=== PATIENT | male | born 1965 | race Caucasian/White ===

== ENCOUNTER → 2018-06-15 16:13 | Outpatient (REF) | payer SELFPAY ==
[2018-06-17 09:58] LABS: HIV-1/2 Ag & Ab Screen Negative (NEGAT)
[2018-06-17 10:42] LABS: Hepatitis C Ab w Rflx HCV PCR Negative (NEGAT)
[2018-06-17 15:00] LABS: Chlamydia Result Negative; GC Result Negative; Specimen Description URINE
== END ==
LOC: NCHCN 16:13
PROVIDERS: PCP Nurse Practitioner Family; Visit Provider Nurse Practitioner Family
DX: Z11.3 Encounter for screening for infections with a predominantly sexual mode of transmission (principal); Z11.4 Encounter for screening for human immunodeficiency virus [HIV]; Z11.59 Encounter for screening for other viral diseases
CPT/HCPCS: 86803; 87389; 87491; 87591

== ENCOUNTER → 2018-06-22 07:53 | Outpatient (CLI) | payer SELFPAY ==
[2018-06-22 09:41] LABS: HCT 42.6 % (40.0-50.0); HGB 14.9 g/dL (13.5-17.5); Mean Corpuscular Hemoglobin 30.8 pg (27.0-33.0); Mean Platelet Volume 12.4 fL (8.0-11.0); Platelet Count 177 x1000/uL (130-400); RBC 4.84 m/cumm (4.50-6.00); RBC Distribution Width 13.3 % (11.8-14.1); White Blood Cell Count 6.46 k/cumm (4.4-10.8)
[2018-06-22 10:06] LABS: ALT 21 U/L (12-78); AST 16 U/L (15-37); Alkaline Phosphatase 64 U/L (46-116); Anion Gap 10.7 mmol/L (3-11); BUN 16 mg/dL (7-18); Bilirubin, Total 0.8 mg/dL (0.2-1.0); CO2 23.3 mmol/L (21.0-32.0); CREATININE 1.28 mg/dL (0.70-1.30); Calcium 8.6 mg/dL (8.5-10.1); Chloride 104 mmol/L (98-107); Cholesterol 201 mg/dL (50-200); Estimated GFR 59.25 (mL/min/1.73m2); Glucose 100 mg/dL (70-100); HDL Cholesterol 55 mg/dL (40-60); LDL CHOLESTEROL 125 mg/dL (<100); Potassium 4.1 mmol/L (3.5-5.1); Sodium 138 mmol/L (136-145); TSH (W/Ref FT4) 2.59 uIU/mL (0.358-3.74); Total Protein 7.2 g/dL (6.4-8.2); Triglyceride 91 mg/dL (30-150)
[2018-06-23 11:34] LABS: HIV-1/2 Ag & Ab Screen Negative (NEGAT)
[2018-06-25 09:52] LABS: Hepatitis C Ab w Rflx HCV PCR Negative (NEGAT)
== END ==
PROVIDERS: PCP Nurse Practitioner Family; Visit Provider Nurse Practitioner Family
DX: Z13.29 Encounter for screening for other suspected endocrine disorder (principal); Z11.3 Encounter for screening for infections with a predominantly sexual mode of transmission; Z11.4 Encounter for screening for human immunodeficiency virus [HIV]; Z13.0 Encounter for screening for diseases of the blood and blood-forming organs and certain disorders involving the immune mechanism; Z13.228 Encounter for screening for other metabolic disorders; Z11.59 Encounter for screening for other viral diseases; Z13.220 Encounter for screening for lipoid disorders; Z00.00 Encounter for general adult medical examination without abnormal findings
CPT/HCPCS: 36415; 80053; 80061; 83721; 85027; 86803; 87389; 84443

== ENCOUNTER → 2018-06-24 14:46 | Outpatient (CLI) | payer SELFPAY ==
[2018-06-28 13:56] LABS: Chlamydia Result Negative; GC Result Negative; Specimen Description URINE
== END ==
PROVIDERS: PCP Nurse Practitioner Family; Visit Provider Nurse Practitioner Family
DX: Z11.3 Encounter for screening for infections with a predominantly sexual mode of transmission (principal)
CPT/HCPCS: 87491; 87591

== ENCOUNTER 2018-10-28 16:14 | Outpatient (REF) | payer SELFPAY ==
[2018-10-31 14:15] LABS: Testosterone, Free 6.48 ng/dL (4.06-15.6); Testosterone, Total 341 ng/dL (240-950)
[2018-11-01 09:09] LABS: PSA, Screening 1.6 ng/ml (0-3.5)
== END 2018-10-28 16:34 ==
LOC: NCHCN 16:14
PROVIDERS: PCP Nurse Practitioner Family; Visit Provider Nurse Practitioner Family
DX: R53.83 Other fatigue (principal); N52.9 Male erectile dysfunction, unspecified; Z12.5 Encounter for screening for malignant neoplasm of prostate
CPT/HCPCS: 84153; 84402; 84403

== ENCOUNTER 2018-11-23 05:58 | Emergency (ER) | payer SELFPAY ==
[2018-11-23 06:01] VITALS: BP 144/103; PULSE 90; RESP 22; TEMP 36.5; O2SAT 97
--- NOTE | 2018-11-23 06:37 | ED.GENADUL_ITS ---
Discharge Plan Disposition Patient Disposition: HOME Condition: Stable Discharge Details Chief Complaint: Cellulitis Clinical Impression: Cellulitis of chin Primary Care Provider: Rayna Pino ED Provider: Celina Tyler Home Meds and New Rx's Prescriptions: New sulfamethoxazole-trimethoprim [Bactrim DS] 800-160 mg tablet 2 tab PO BID 7 Days Qty: 28 RF: 0 Continued Probiotic 3 billion cell Capsule 1 cap PO DAILY RF: 0 Discharge Instructions Instructions: Cellulitis (ED) Additional Instructions: Take the antibiotics finished. Alternate Tylenol and Motrin as needed and directed for pain. Apply warm compresses to the affected area several times daily for 20 minutes at a time. On exam today you appear to have a cellulitis which is an infection of the skin but you do not appear to have an abscess. If your symptoms do not improve or worsen, you may be developing an abscess, or you may need different antibiotics. Call your primary care doctor today to schedule follow-up appointment for reevaluation this week. Return to the emergency department any time with any worsening or new concerning symptoms. Discharge Data Discharge Date/Time-TO BE ENTERED AT DEPARTURE: 11/23/18 07:25 Discharge Physician: Celina Tyler Medical Decision Making 53yo M with a chin cellulitis after developing an ingrown hair yesterday which she attempted to pop. Vitals within normal limits and patient appears nontoxic. His airway is intact and is speaking in full sentence he is afebrile. There are 2 erosions where patient attempted to squeeze the area. It appears consistent with a cellulitis. Bedside ultrasound was done to assess for abscess and there was no obvious localized collection seen. Area appears more indurated rather than fluctuant. No submandibular swelling or lymphadenopathy. Patient admits to a history of C. difficile a few years ago due to antibiotics for a leg cellulitis. Due to risk of C. difficile colitis with any antibiotic, there may be a stronger risk with clindamycin or doxycycline, therefore will treat with Bactrim. Will give 2 tabs here as well as prescription for home. It was discussed with patient that his symptoms appear consistent with a cellulitis, but may change at any time. If his symptoms become worse, he is instructed to return here immediately for consideration for different antibiotics or possible evaluation of abscess. HPI General Mode of arrival: ambulatory . Date/Time Provider Initiated Documentation: 11/23/18 06:13 . Limitations to Documentation: no limitations . Information obtained by: patient . HPI Narrative: Patient is a 53-year-old male who presents to the ED with a complaint of painful red and swollen chin since yesterday. Patient states he attempted to pop the area with his bare hands and the area has become more swollen red and painful. He does also admit to one episode of diarrhea. Patient states he has a history of C. difficile colitis a couple years ago and states the diarrhea was watery but denies any blood. He a lso denies any fever, nausea, vomiting or abdominal pain. He denies any recent antibiotics. Related Data Home Medications Medication Instructions Recorded Confirmed Probiotic 1 cap PO DAILY 11/23/18 11/23/18 sulfamethoxazole-trimethoprim 2 tab PO BID 7 Days #28 tab 11/23/18 [Bactrim DS] Previous Rx's Medication Instructions Recorded sulfamethoxazole-trimethoprim 2 tab PO BID 7 Days #28 tab 11/23/18 [Bactrim DS] Allergies Allergy/AdvReac Type Severity Reaction Status Date / Time No Known Allergies Allergy Unverified 11/23/18 06:09 General Stated Complaint: Cellulitis LU: 3 Review of Systems Review of Systems All systems reviewed & are unremarkable except as noted in HPI and below Constitutional Reports as per HPI, Denies chills and Denies fever(s) Eyes Denies blurry vision ENT Denies dizziness, Denies sore throat and Denies throat swelling Cardiovascular Denies chest pain and Denies dyspnea Respiratory Denies dyspnea Gastrointestinal Denies abdominal pain, Denies diarrhea and Denies vomiting Genitourinary Denies hematuria and Denies dysuria Musculoskeletal Denies back pain and Denies numbness Integumentary/Breasts Reports lesions and Denies rash Neurologic Denies dizziness and Denies numbness Allergic/Immunologic Denies throat swelling [facility] Medical History C. difficile colitis (Acute) Social History Smoking/Tobacco Use Status: Never alcohol intake: current alcohol intake frequency: a few times a week substance use type: marijuana Exam Const General: cooperative, healthy appearing and no acute distress [facility] Head images: 1. An approximately 5 x 5 cm area of erythematous induration and tenderness. T wo 0.5 x 1cm erosions within area of induration. No active drainage or bleeding. No area of fluctuance. Ears: hearing grossly normal bilaterally and TM's normal bilaterally General nose exam: external nose normal Mouth: oral mucosae normal Teeth and gingiva: dentition normal Throat: posterior oropharynx normal Eyes General: appearance normal, both eyes and all related structures Neck Neck: normal visual inspection, no lymphadenopathy, no anterior neck swelling and No submandibular swelling Resp Effort & Inspection: normal respiratory effort and able to speak in complete sentences Cardio Rate: regular rate Neuro General: alert, awake and oriented x3 Motor: muscle tone normal throughout Extrem General: normal to inspection and full ROM Psych Appearance: grossly normal Affect: normal affect Course Vital Signs Temperature 97.7 F 11/23/18 06:01 Pulse 90 11/23/18 06:01 Respiratory Rate 22 11/23/18 06:01 Blood Pressure 144/103 H 11/23/18 06:01 Pulse Oximetry 97 11/23/18 06:01 Temperature 97.7 F 11/23/18 06:01 Temperature Source Skin 11/23/18 06:01 Pulse 90 11/23/18 06:01 Respiratory Rate 22 11/23/18 06:01 Respiratory Effort Non-Labored 11/23/18 06:07 Blood Pressure 144/103 H 11/23/18 06:01 Blood Pressure Position Sitting 11/23/18 06:01 Pulse Oximetry 97 11/23/18 06:01 Oxygen Delivery Method Room Air 11/23/18 06:01 Oxygen Flow Rate 0 11/23/18 06:01 Pain Level 9 11/23/18 06:01
[2018-11-23] MEDS: Sulfameth/Trimeth DS TAB 2 TAB PO (06:48)
[2018-11-23 06:57] VITALS: BP 164/91; PULSE 74; RESP 18; O2SAT 99
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
== END 2018-11-23 07:25 | disposition home or self-care (01) ==
LOC: ER 07:11
PROVIDERS: Emergency Provider Physician Assistant; PCP Nurse Practitioner Family
DX: L03.211 Cellulitis of face (principal)
CPT/HCPCS: 99283

== ENCOUNTER 2018-11-26 03:35 | Emergency (ER) | payer SELFPAY ==
[2018-11-26 03:39] VITALS: BP 178/86; PULSE 72; RESP 16; TEMP 37.1; O2SAT 99
--- NOTE | 2018-11-26 03:49 | W.ED.GENAD ---
Discharge Plan Disposition Patient Disposition: HOME Condition: Stable Discharge Details Chief Complaint: Recheck Clinical Impression: Cellulitis of chin Primary Care Provider: Rayna Pino ED Provider: Provider,Temporary Home Meds and New Rx's Prescriptions: New prednisone 20 mg tablet 60 mg PO DAILY 4 Days Qty: 12 RF: 0 amoxicillin-pot clavulanate [Augmentin] 875-125 mg tablet 1 tab PO BID Qty: 14 RF: 0 Continued Probiotic 3 billion cell Capsule 1 cap PO DAILY RF: 0 sulfamethoxazole-trimethoprim [Bactrim DS] 800-160 mg tablet 2 tab PO BID 7 Days Qty: 28 RF: 0 Discharge Instructions Instructions: Cellulitis (ED) Additional Instructions: follow up with your primary care provider in a week if not better and here sooner if you feel the infection is worsening, you have difficulty breathing or swallowing liquids Medical Decision Making 53 yo male comes in for recheck of chin rash. Was placed on bactrim on 11/23 as he had redness of the chin and likley folliciulitis. Continues to have this but now also has left lower lip swelling. Denies pain of the lip, no redness or warmth to touch of the lip. HAs no areas of flucthacen or visible drainable abscess on exam. REdness does not extend beyond the chin and has no submandibular swelling, has no stridor or drooling and has full rom of the mouth and normal posterior pharynx. I feel the swelling is likely from the infection and not clear if it is actually worsening or starting to heal. Given bactrim doesn't cover strep well will add augmentin and also add prednisone to help with the swelling. HE does have hx of c diff but feel he requires coverage for strep. He will be d/c'd and return if worsening Differential Diagnosis cellulitis, abscess HPI General Mode of arrival: ambulatory. Date/Time Provider Initiated Documentation: 11/26/18 03:41. Limitations to Documentation: no limitations. Information obtained by: patient. History of Present Illness 53 year old M presents to the emergency department with the chief complaint of left lower lip swelling, described as mild, Quality is described as aching, and is localized to the face. Patient started experiencing this day(s) (1) and it has been constant. No relieving factors improve symptom(s), No exacerbating factors reported . Patient notes no other symptoms.. Related Data Home Medications Medication Instructions Recorded Confirmed Probiotic 1 cap PO DAILY 11/23/18 11/26/18 sulfamethoxazole-trimethoprim 2 tab PO BID 7 Days #28 tab 11/23/18 11/26/18 [Bactrim DS] amoxicillin-pot clavulanate 1 tab PO BID #14 tab 11/26/18 [Augmentin] prednisone 60 mg PO DAILY 4 Days #12 tab 11/26/18 Previous Rx's Medication Instructions Recorded sulfamethoxazole-trimethoprim 2 tab PO BID 7 Days #28 tab 11/23/18 [Bactrim DS] amoxicillin-pot clavulanate 1 tab PO BID #14 tab 11/26/18 [Augmentin] prednisone 60 mg PO DAILY 4 Days #12 tab 11/26/18 Allergies Allergy/AdvReac Type Severity Reaction Status Date / Time No Known Allergies Allergy Unverified 11/26/18 03:46 General Stated Complaint: Recheck LU: 4 Review of Systems Review of Systems All systems reviewed & are unremarkable except as noted in HPI and below Constitutional Denies chills, Denies fever(s) and Denies weakness ENT Denies change in voice Cardiovascular Denies chest pain and Denies dyspnea Respiratory Denies dyspnea Gastrointestinal Denies abdominal pain, Denies nausea and Denies vomiting Genitourinary Denies dysuria Musculoskeletal Denies joint swelling Neurologic Denies weakness Endocrine Denies heat intolerance [facility] Medical History C. difficile colitis (Acute) Social History Smoking/Tobacco Use Status: Never alcohol intake: current alcohol intake frequency: a few times a week substance use type: marijuana Exam Const General: no acute distress Orientation: alert [facility] Head: normocephalic Ears: external ears normal General nose exam: external nose normal Mouth: moist mucous membranes Eyes General: appearance normal, both eyes and all related structures Neck Neck: normal visual inspection Resp Effort & Inspection: normal respiratory effort and able to speak in complete sentences Cardio Rate: regular rate Skin General skin exam: elasticity normal Rashes: rashes noted and other (erythema of the chin, left lower lip swelling, no drainage or fluctuance) Neuro General: alert and oriented x3 Extrem General: normal to inspection Psych Mental Status: mental status grossly normal Course Vital Signs Temperature 37.1 C 11/26/18 03:39 Pulse 72 11/26/18 03:39 Respiratory Rate 16 11/26/18 03:39 Blood Pressure 178/86 H 11/26/18 03:39 Pulse Oximetry 99 11/26/18 03:39 Temperature 37.1 C 11/26/18 03:39 Temperature Source Temporal Artery Scan 11/26/18 03:39 Pulse 72 11/26/18 03:39 Respiratory Rate 16 11/26/18 03:39 Respiratory Effort 11/26/18 03:39 Blood Pressure 178/86 H 11/26/18 03:39 Pulse Oximetry 99 11/26/18 03:39 Oxygen Delivery Method Room Air 11/26/18 03:39 Oxygen Flow Rate 0 11/26/18 03:39 Pain Level 10 11/26/18 03:39
--- NOTE | 2018-11-26 03:52 | ED.GENADUL_ITS ---
Discharge Plan Disposition Patient Disposition: HOME Condition: Stable Discharge Details Chief Complaint: Recheck Clinical Impression: Cellulitis of chin Primary Care Provider: Rayna Pino ED Provider: Provider,Temporary Home Meds and New Rx's Prescriptions: New prednisone 20 mg tablet 60 mg PO DAILY 4 Days Qty: 12 RF: 0 amoxicillin-pot clavulanate [Augmentin] 875-125 mg tablet 1 tab PO BID Qty: 14 RF: 0 Continued Probiotic 3 billion cell Capsule 1 cap PO DAILY RF: 0 sulfamethoxazole-trimethoprim [Bactrim DS] 800-160 mg tablet 2 tab PO BID 7 Days Qty: 28 RF: 0 Discharge Instructions Instructions: Cellulitis (ED) Additional Instructions: follow up with your primary care provider in a week if not better and here sooner if you feel the infection is worsening, you have difficulty breathing or swallowing liquids Medical Decision Making 53 yo male comes in for recheck of chin rash. Was placed on bactrim on 11/23 as he had redness of the chin and likley folliciulitis. Continues to have this but now also has left lower lip swelling. Denies pain of the lip, no redness or warmth to touch of the lip. HAs no areas of flucthacen or visible drainable abscess on exam. REdness does not extend beyond the chin and has no submandibular swelling, has no stridor or drooling and has full rom of the mouth and normal posterior pharynx. I feel the swelling is likely from the infection and not clear if it is actually worsening or starting to heal. Given bactrim doesn't cover strep well will add augmentin and also add prednisone to help with the swelling. HE does have hx of c diff but feel he requires coverage for strep. He will be d/c'd and return if worsening Differential Diagnosis cellulitis, abscess HPI General Mode of arrival: ambulatory . Date/Time Provider Initiated Documentation: 11/26/18 03:41 . Limitations to Documentation: no limitations . Information obtained by: patient . History of Present Illness 53 year old M presents to the emergency department with the chief complaint of left lower lip swelling, described as mild, Quality is described as aching, and is localized to the face. Patient started experiencing this day(s) (1) and it has been constant. No relieving factors improve symptom(s), No exacerbating factors reported . Patient notes no other symptoms.. Related Data Home Medications Medication Instructions Recorded Confirmed Probiotic 1 cap PO DAILY 11/23/18 11/26/18 sulfamethoxazole-trimethoprim 2 tab PO BID 7 Days #28 tab 11/23/18 11/26/18 [Bactrim DS] amoxicillin-pot clavulanate 1 tab PO BID #14 tab 11/26/18 [Augmentin] prednisone 60 mg PO DAILY 4 Days #12 tab 11/26/18 Previous Rx's Medication Instructions Recorded sulfamethoxazole-trimethoprim 2 tab PO BID 7 Days #28 tab 11/23/18 [Bactrim DS] amoxicillin-pot clavulanate 1 tab PO BID #14 tab 11/26/18 [Augmentin] prednisone 60 mg PO DAILY 4 Days #12 tab 11/26/18 Allergies Allergy/AdvReac Type Severity Reaction Status Date / Time No Known Allergies Allergy Unverified 11/26/18 03:46 General Stated Complaint: Recheck LU: 4 Review of Systems Review of Systems All systems reviewed & are unremarkable except as noted in HPI and below Constitutional Denies chills, Denies fever(s) and Denies weakness ENT Denies change in voice Cardiovascular Denies chest pain and Denies dyspnea Respiratory Denies dyspnea Gastrointestinal Denies abdominal pain, Denies nausea and Denies vomiting Genitourinary Denies dysuria Musculoskeletal Denies joint swelling Neurologic Denies weakness Endocrine Denies heat intolerance [facility] Medical History C. difficile colitis (Acute) Social History Smoking/Tobacco Use Status: Never alcohol intake: current alcohol intake frequency: a few times a week substance use type: marijuana Exam Const General: no acute distress Orientation: alert [facility] Head: normocephalic Ears: external ears normal General nose exam: external nose normal Mouth: moist mucous membranes Eyes General: appearance normal, both eyes and all related structures Neck Neck: normal visual inspection Resp Effort & Inspection: normal respiratory effort and able to speak in complete sentences Cardio Rate: regular rate Skin General skin exam: elasticity normal Rashes: rashes noted and other (erythema of the chin, left lower lip swelling, no drainage or fluctuance) Neuro General: alert and oriented x3 Extrem General: normal to inspection Psych Mental Status: mental status grossly normal Course Vital Signs Temperature 37.1 C 11/26/18 03:39 Pulse 72 11/26/18 03:39 Respiratory Rate 16 11/26/18 03:39 Blood Pressure 178/86 H 11/26/18 03:39 Pulse Oximetry 99 11/26/18 03:39 Temperature 37.1 C 11/26/18 03:39 Temperature Source Temporal Artery Scan 11/26/18 03:39 Pulse 72 11/26/18 03:39 Respiratory Rate 16 11/26/18 03:39 Respiratory Effort 11/26/18 03:39 Blood Pressure 178/86 H 11/26/18 03:39 Pulse Oximetry 99 11/26/18 03:39 Oxygen Delivery Method Room Air 11/26/18 03:39 Oxygen Flow Rate 0 11/26/18 03:39 Pain Level 10 11/26/18 03:39
[2018-11-26] MEDS: Amoxicillin 875/Clav. 125 TAB PO (03:54)
[2018-11-26] MEDS: predniSONE 20 MG TAB 60 MG PO (03:54)
--- NOTE | 2018-11-26 09:11 | PDOC.ERCMPRO ---
Care Management Progress Note 11/26-Bruce needs assistance with paying for his new prescriptions for his chin cellulitis. Dr. Smyth prescribed amoxicillin and prednisone. This CM had assisted Bruce with paying for a bactrim script at [facility] a couple days ago. This CM called [facility] this am and spoke with Nallely. Nallely states that Bruce was seen in their office yesterday at 1030 but there was no change. Explained that Dr. Smyth has prescribed new meds as Bruce's lip had some swelling (please see provider note) and this CM was wondering if [employer] flex funds would cover the cost of the scripts. Nallely stated she would discuss with triage and call back. Currently [facility] does not have a Chronic Care Aid. Waiting for call back to continue to assist with medications.
--- NOTE | 2018-11-26 09:15 | CMPROGNOTE_ITS ---
Care Management Progress Note 11/26-Bruce needs assistance with paying for his new prescriptions for his chin cellulitis. Dr. Smyth prescribed amoxicillin and prednisone. This CM had assisted Bruce with paying for a bactrim script at [facility] a couple days ago. This CM called [facility] this am and spoke with Nallely. Nallely stat es that Bruce was seen in their office yesterday at 1030 but there was no change. Explained that Dr. Smyth has prescribed new meds as Bruce's lip had some swelling (please see provider note) and this CM was wondering if [facility] flex funds would cover the cost of the scripts. Nallely stated she would discuss with triage and call back. Currently [facility] does not have a Chronic Periodontal Assistant. Waiting for call back to continue to assist with medications.
== END 2018-11-26 04:28 | disposition home or self-care (01) ==
PROVIDERS: Emergency Provider Emergency Medicine; PCP Nurse Practitioner Family
DX: L03.211 Cellulitis of face (principal)
CPT/HCPCS: 99283; J7512

== ENCOUNTER 2020-07-05 08:04 | Outpatient (REF) | payer BC, SELFPAY ==
[2020-07-05 16:52] LABS: Anion Gap 6.5 mmol/L (3-11); BUN 15 mg/dL (7-18); CO2 25.5 mmol/L (21.0-32.0); CREATININE 1.25 mg/dL (0.70-1.30); Calcium 8.9 mg/dL (8.5-10.1); Calculated LDL 142 mg/dL (<100); Chloride 108 mmol/L (98-107); Cholesterol 220 mg/dL (<200); Glucose 94 mg/dL (74-106); HDL Cholesterol 54 mg/dL (40-60); Potassium 4.5 mmol/L (3.5-5.1); Sodium 140 mmol/L (136-145); Triglyceride 124 mg/dL (<150)
== END 2020-07-05 08:24 ==
LOC: NCHCN 08:04
PROVIDERS: PCP Nurse Practitioner Family; Visit Provider Nurse Practitioner Family
DX: Z00.00 Encounter for general adult medical examination without abnormal findings (principal); Z13.228 Encounter for screening for other metabolic disorders; Z13.220 Encounter for screening for lipoid disorders
CPT/HCPCS: 80048; 80061

== ENCOUNTER 2020-10-26 20:10 | Emergency (ER) | payer BC, SELFPAY ==
[2020-10-26] VITALS (12 sets, daily range): BP systolic 70–88; BP diastolic 36–71; PULSE 58–64; RESP 17–40; TEMP 33.7–36; O2SAT 85–100
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
[2020-10-26] MEDS: Normal Saline 1,000 ML 1000 ML IV (20:20)
[2020-10-26] MEDS: Lactated Ringers 1,000 ML 1000 ML IV (20:20)
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
[2020-10-26 20:41] LABS: Abs Immature Grans 0.01 10^3/uL (0.0-0.06); Absolute Basophil Count 0.01 10^3/uL (0.0-0.2); Absolute Eosinophil Count 0.04 10^3/uL (0.0-0.7); Absolute Lymphocyte Count 0.91 10^3/uL (1.2-3.4); Absolute Monocyte Count 0.31 10^3/uL (0.1-0.8); Absolute Neutrophil Count 4.12 10^3/uL (1.2-6.7); Basophils % 0.2; Eosinophils % 0.7; HCT 26.8 % (40.0-50.0); HGB 9.2 g/dL (13.5-17.5); Immature Grans % 0.2; Lymphocytes % 16.9; MCH 31.5 pg (27.0-33.0); MCHC 34.3 % (32.0-36.0); MCV 91.8 fL (80-95); MPV 10.7 fL (8.0-11.0); Monocytes % 5.7; Neutrophils % 76.3; Nucleated RBC 0 %; Platelet Count 141 10^3/uL (130-400); RBC 2.92 10^6/uL (4.36-5.78); RDW 12.2 % (11.8-14.1); RDW-SD 41.1 fL
[2020-10-26 20:52] LABS: INR 1.3 (0.9-1.1); PTT Activated 24.5 sec (21.0-27.5); Prothrombin Time 12.7 sec (9.3-11.0)
[2020-10-26 20:54] LABS: ALT 16 U/L (16-63); AST 18 U/L (15-37); Alkaline Phosphatase 32 U/L (46-116); BUN 11 mg/dL (7-18); Bilirubin, Total 0.2 mg/dL (0.2-1.0); CREATININE 1.09 mg/dL (0.70-1.30); Chloride 117 mmol/L (98-107); ETHANOL BLOOD 163.2 mg/dL (<3); Glucose 79 mg/dL (74-106); Magnesium 1.1 mg/dL (1.8-2.4); Sodium 145 mmol/L (136-145); Total Protein 3.7 g/dL (6.4-8.2); Troponin I < 0.05 ng/mL (<0.06)
[2020-10-26 20:56] LABS: Calcium 5.3 mg/dL (8.5-10.1)
[2020-10-26 20:57] LABS: Potassium 2.3 mmol/L (3.5-5.1)
[2020-10-26] MEDS: Omnipaque 350 MG/ML 100 ML BTL IJ (21:14)
[2020-10-26] MEDS: Normal Saline - Diluent 50 ML VIAL IV (21:15)
[2020-10-26] MEDS: Normal Saline Flush 10 ML SYR IVP (21:15)
--- NOTE | 2020-10-26 21:16 | DI.CT_ITS ---
EXAM: CT HEAD CERVICAL SPINE WO CLINICAL HISTORY: fall, altered, suspect spinal shock/cord injury. TECHNIQUE: Imaging Protocol: Axial computed tomography images with coronal and sagittal reformatted images were created and reviewed COMPARISON: No exams were available for comparison FINDINGS: Head CT Ventricles and Extra axial spaces: Normal in size and morphology for the patient's age. Hemorrhage: None. Cerebral parenchyma: Normal. Midline shift: None. Brainstem/Cerebellum: Normal. Calvarium: Normal. Visualized Paranasal sinuses/Mastoids: Mild mucosal thickening. Cervical Spine CT BONES: Vertebral body heights are maintained. There are bilateral perched facets at C6-7 with anterol isthesis of 50% of vertebral width, 12mm. There is significant narrowing of the AP dimension of the central canal with cord compression. Tiny fracture fragments are seen adjacent to the perched facets . There are no fragments within the canal. Degenerative disc changes and facet degenerative changes are seen throughout. . SOFT TISSUES: No paraspinal hematoma. The airway appears intact. No pneumothorax is seen at the lung apices. IMPRESSION: Head CT: No acute abnormality. C-spine CT: Bilateral perched facet at C6-7 causing moderate to severe central canal stenosis and lik avelino cord compression.. RADIATION DOSE DELIVERED: LINK-TO-SR Total DLP DATA REPOSITORY: All CT scans at this facility are submitted to the National Radiology Data Registry (NRDR) Dose Index Registry (DIR) with the [employer] (ACR). RADIATION OPTIMIZATION: All CT scans at this facility use at least one of these dose optimization te chniques: automated exposure control; mA and/or kV adjustment per patient size (includes targeted exa ms where dose is matched to clinical indication); or iterative reconstruction.
--- NOTE | 2020-10-26 21:16 | DI.CT_ITS ---
EXAM: CT CHEST/ABD/PEL W CLINICAL HISTORY: fall, altered, suspect spinal shock/cord injury. TECHNIQUE: Imaging Protocol: Axial computed tomography images with coronal and sagittal reformatted images were created and reviewed CONTRAST MATERIAL: Intravenous: Omnipaque 350 Contrast volume:100 cc Oral: no COMPARISON: No exams were available for comparison FINDINGS: CHEST: Pulmonary parenchyma: No consolidation or dominant measurable mass. Mild dependent changes. Pleura: No effusion or pneumothorax. Lymph nodes: Within normal limits. Aorta: Thoracic portion non-dilated. No evidence of dissection. Heart: Normal heart size. Mild coronary artery calcifications. No pericardial effusion. Bones: Degenerative changes of the thoracic spine. No fracture is identified. ABDOMEN: Liver: Normal density. No measurable mass. Gallbladder and biliary tract: No radiodense calculus or dilation. Pancreas: Normal density, no abnormal calcifications or inflammatory process. Spleen: Normal. Kidneys: Normal size, contour and axis. No radiodense stones or obstructive uropathy. No masses seen. Adrenal glands: No masses seen. Aorta: Abdominal portion non-dilated. Lymph nodes: Within normal limits. PELVIS: Bladder: Symmetric distention, no gross wall thickening. Bowel: No obstruction or bowel wall thickening. Peritoneal cavity: No ascites, collection or mesenteric inflammatory response. No evidence free air, intraperitoneal or retroperitoneal hematoma. Bones: Degenerative changes in the lumbar spine. No fracture is identified. Reproductive organs: Within normal limits. IMPRESSION: No acute abnormality is identified in the chest, abdomen, and pelvis. RADIATION DOSE DELIVERED: Total DLP DATA REPOSITORY: All CT scans at this facility are submitted to the National Radiology Data Registry (NRDR) Dose Index Registry (DIR) with the [employer] (ACR). RADIATION OPTIMIZATION: All CT scans at this facility use at least one of these dose optimization te chniques: automated exposure control; mA and/or kV adjustment per patient size (includes targeted exa ms where dose is matched to clinical indication); or iterative reconstruction.
[2020-10-26] MEDS: MAGNESIUM SULFATE 1 GM/100 ML BAG IVPB (21:20)
[2020-10-26] MEDS: POTASSIUM CHLORIDE 10 MEQ/100 ML BAG 100 MEQ IVPB (21:21)
[2020-10-26 21:23] LABS: Bilirubin Negative (Negative); Blood Trace-intact (Negative); Clarity Clear (Clear); Glucose Negative (Negative); Ketones Negative (Negative); Leukocyte Esterase Negative (Negative); Nitrite Negative (Negative); Urobilinogen 0.2 EU/dL (Up TO 0.2); pH 5.5 (5-8)
[2020-10-26] MEDS: Calcium Gluconate 4.65 MEQ/10 ML VIAL 4.65 MG IVP (21:28)
[2020-10-26 21:32] LABS: Bacteria Negative HPF (Negative); C & S Indicated? No; Casts Negative LPF (Negative); Crystals Negative HPF (Negative); Epithelial Cells Negative HPF (Negative); Mucus Negative (Negative); RBC 0-2 HPF (0-2); WBC 0-2 HPF (0-5)
--- NOTE | 2020-10-26 21:32 | DI.VRAD_ITS ---
Addendum created by Rachel Thompson MD on 10/26/2020 9:35:59 PM EST: ADDENDUM: 10/26/2020 9:[address] Pastrana has received the report and is aware of the findings. Initial report created on 10/26/2020 9:32:36 PM EST: PROCEDURE INFORMATION: Exam: CT Head Without Contrast Exam date and time: 10/26/2020 8:43 PM Age: 55 years old Clinical indication: Injury or trauma; Blunt trauma (contusions or hematomas); Consciousness not specified; Injury date: 10/26/20; Injury details: Fall, suspect spinal shock/cord injury TECHNIQUE: Imaging protocol: Computed tomography of the head without contrast. Radiation optimization: All CT scans at this facility use at least one of these dose optimization techniques: automated exposure control; mA and/or kV adjustment per patient size (includes targeted exams where dose is matched to clinical indication); or iterative reconstruction. COMPARISON: No relevant prior studies available. FINDINGS: Brain: No acute intracranial hemorrhage. Welch/white matter differentiation is unremarkable. Cisterns are unremarkable. Brainstem is unremarkable. No suprasellar mass. No mass lesion. No mass effect. Thalamus and hypothalamus are unremarkable. Cerebellum is unremarkable. Cerebral ventricles: No ventriculomegaly. Bones/joints: No evidence of fracture. Paranasal sinuses: Mild mucosal thickening in bilateral ethmoid, maxillary and left frontal sinuses. No fluid levels. Mastoid air cells: Visualized mastoid air cells are well aerated. Soft tissues: Unremarkable. IMPRESSION: No evidence of fracture. No evidence of acute intracranial bleed. PROCEDURE INFORMATION: Exam: CT Cervical Spine Without Contrast Exam date and time: 10/26/2020 8:43 PM Age: 55 years old Clinical indication: Injury or trauma; Blunt trauma (contusions or hematomas); Consciousness not specified; Injury date: 10/26/20; Injury details: Fall, suspect spinal shock/cord injury TECHNIQUE: Imaging protocol: Computed tomography images of the cervical spine without contrast. Radiation optimization: All CT scans at this facility use at least one of these dose optimization techniques: automated exposure control; mA and/or kV adjustment per patient size (includes targeted exams where dose is matched to clinical indication); or iterative reconstruction. COMPARISON: No relevant prior studies available. FINDINGS: Bones/joints: Bilateral C6-C7 perched facet with 12 mm anterolisthesis of C6 over C7 moderate to severe canal stenosis is seen at C6-C7 level with likely moderate cord compression. No fracture fragments are seen adjacent to the perched facets. Discs/Spinal canal/Neural foramina: No disc protrusion or extrusion. Degenerative disc disease with small osteophytosis at C3-C4 , C4-C5 and C5-C6. Lungs: Lung apices are normal. Soft tissues: Unremarkable. IMPRESSION: Bilateral C6-C7 perched facet with 12 mm anterolisthesis of C6 over C7 and moderate to severe canal stenosis and moderate cord compression. Dictated and Authenticated by: Rachel Thompson MD. Ordering:HARJINDER Castellanos MD
[2020-10-26 21:33] LABS: *AMPHETAMINES SCREEN URINE Negative (Negative); *BARBITURATES SCREEN URINE Negative (Negative); *BENZODIAZEPINES SCREEN URINE Negative (Negative); Cannabinoids THC POSITIVE (Negative); Cocaine Screen,Urine Negative (Negative); METHADONE URINE SCREEN Negative (Negative); OPIATES URINE SCREEN Negative (Negative)
[2020-10-26 21:34] LABS: Tricyclic Antidepressants Negative (Negative)
[2020-10-26] MEDS: Lactated Ringers 1,000 ML 200 ML IV (21:35)
--- NOTE | 2020-10-26 21:39 | DI.VRAD_ITS ---
PROCEDURE INFORMATION: Exam: CT Chest With Contrast; Diagnostic Exam date and time: 10/26/2020 8:22 PM Age: 55 years old Clinical indication: Injury or trauma; Fall; Generalized; Blunt trauma (contusions or hematomas); Injury date: 10/26/20 TECHNIQUE: Imaging protocol: Diagnostic computed tomography of the chest with intravenous contrast. Radiation optimization: All CT scans at this facility use at least one of these dose optimization techniques: automated exposure control; mA and/or kV adjustment per patient size (includes targeted exams where dose is matched to clinical indication); or iterative reconstruction. Contrast material: [id number]; Contrast volume: 100 ml; Contrast route: INTRAVENOUS (IV); COMPARISON: No relevant prior studies available. FINDINGS: Thyroid: The thyroid gland is within normal limits. Lungs: The tracheobronchial tree is patent bilaterally. There are dependent atelectatic changes the lung bases. Pleural space: Unremarkable. No pneumothorax. No pleural effusion. Heart: The heart and pericardium are within normal limits. There is slight coronary artery calcifications. Aorta: Unremarkable. No aortic aneurysm. Lymph nodes: Unremarkable. No enlarged lymph nodes. Bones/joints: There are degenerative changes of the left shoulder. There are degenerative changes of the thoracic spine. Soft tissues: Unremarkable. IMPRESSION: The pendant atelectatic changes at the lung bases. Osseous findings as above. PROCEDURE INFORMATION: Exam: CT Abdomen And Pelvis With Contrast Exam date and time: 10/26/2020 8:22 PM Age: 55 years old Clinical indication: Injury or trauma; Fall; Generalized; Blunt trauma (contusions or hematomas); Injury date: 10/26/20 TECHNIQUE: Imaging protocol: Computed tomography of the abdomen and pelvis with intravenous contrast. Radiation optimization: All CT scans at this facility use at least one of these dose optimization techniques: automated exposure control; mA and/or kV adjustment per patient size (includes targeted exams where dose is matched to clinical indication); or iterative reconstruction. Contrast material: [id number]; Contrast volume: 100 ml; Contrast route: INTRAVENOUS (IV); COMPARISON: No relevant prior studies available. FINDINGS: Liver: The liver is within normal limits. There is a calcification within the liver which could represent old granulomatous disease. Gallbladder and bile ducts: The gallbladder is unremarkable. Pancreas: The pancreas is unremarkable. Spleen: The spleen is within normal limits. Adrenal glands: The adrenal glands are unremarkable. Kidneys and ureters: The kidneys are within normal limits. Stomach and bowel: Unremarkable. No obstruction. No mucosal thickening. Appendix: No evidence of appendicitis. Intraperitoneal space: Unremarkable. No free air. No significant fluid collection. Vasculature: There are arteriosclerotic changes of the aorta. Lymph nodes: No enlarged lymph nodes. Urinary bladder: The urinary bladder is unremarkable. Reproductive: The prostate and seminal vesicles appear within normal limits. Bones/joints: There are degenerative changes of the lumbar spine. There is degenerative disc disease at multiple levels. There is a disc osteophyte complex at L5-S1. Soft tissues: Unremarkable. IMPRESSION: Osseous findings as above. Dictated and Authenticated by: Tre Sousa MD. Ordering:HARJINDER Castellanos MD
--- NOTE | 2020-10-26 21:49 | DI.VRAD_ITS ---
PROCEDURE INFORMATION: Exam: CT Thoracic Spine Without Contrast Exam date and time: 10/26/2020 8:22 PM Age: 55 years old Clinical indication: Injury or trauma; Fall; Injury date: 10/26/20; Injury details: Suspect spinal shock TECHNIQUE: Imaging protocol: Computed tomography images of the thoracic spine without contrast. Radiation optimization: All CT scans at this facility use at least one of these dose optimization techniques: automated exposure control; mA and/or kV adjustment per patient size (includes targeted exams where dose is matched to clinical indication); or iterative reconstruction. COMPARISON: No relevant prior studies available. FINDINGS: Vertebrae: There is a normal kyphosis. The vertebral bodies maintain their height throughout. There are degenerative changes with anterior osteophytes at multiple levels. The pedicles are intact. Discs/Spinal canal/Neural foramina: No significant disc protrusion. No severe spinal canal stenosis. No significant neural foraminal narrowing. Soft tissues: Unremarkable. IMPRESSION: Degenerative changes as above. PROCEDURE INFORMATION: Exam: CT Lumbar Spine Without Contrast Exam date and time: 10/26/2020 8:22 PM Age: 55 years old Clinical indication: Injury or trauma; Fall; Injury date: 10/26/20; Injury details: Suspect spinal shock TECHNIQUE: Imaging protocol: Computed tomography images of the lumbar spine without contrast. Radiation optimization: All CT scans at this facility use at least one of these dose optimization techniques: automated exposure control; mA and/or kV adjustment per patient size (includes targeted exams where dose is matched to clinical indication); or iterative reconstruction. COMPARISON: No relevant prior studies available. FINDINGS: Vertebrae: There is a normal lordosis. The vertebral bodies maintain their height throughout. The pedicles are intact. There are degenerative changes with anterior osteophytes at multiple levels. There are multiple well-corticated bony fragments posterior to the posterior spine of L5. This could be secondary to prior trauma. Clinical correlation is recommended. Discs/Spinal canal/Neural foramina: There is degenerative disc disease at L3-L4, L4-L5 and L5-S1. There is disc space narrowing at L5-S1. There is a disc osteophyte complex at this level. Sacrum/coccyx: There is fusion of the right SI joint. This is suspicious for prior sacroiliitis. Other bones/joints: There is a small lytic lesion within the left iliac bone measuring 5 mm. Soft tissues: Unremarkable. IMPRESSION: Degenerative changes and degenerative disc disease as above. Suspect prior sacroiliitis as above. Small lytic lesion within the left iliac bone can be re-evaluated with a whole body nuclear medicine bone scan if clinically warranted. Dictated and Authenticated by: Tre Sousa MD. Ordering:HARJINDER Castellanos MD
== END 2020-10-26 21:50 | disposition short-term general hospital (02) ==
PROVIDERS: Student in an Organized Health Care Education/Training Program; Emergency Provider Emergency Medicine; PCP Nurse Practitioner Family
DX: S12.590A Other displaced fracture of sixth cervical vertebra, initial encounter for closed fracture (principal); S12.690A Other displaced fracture of seventh cervical vertebra, initial encounter for closed fracture; R57.8 Other shock; W17.2XXA Fall into hole, initial encounter
CPT/HCPCS: 51702; 74177; 80053; 80307; 86850; 86900; 86901; 96361; 96365; 96368; 96375; 99291; 70450; 71260; 72125; 80320; 81003; 81015; 83735; 84484; 85025; 85610; 85730; J0610; J3475; J3480; J3490

== ENCOUNTER 2021-01-17 19:43 | Outpatient (REF) | payer BC, SELFPAY ==
[2021-01-19 15:36] LABS: COVID-19 RT-PCR Result Not Detected ((See Note))
== END 2021-01-17 19:44 | disposition home or self-care (01) ==
LOC: LBN 19:43
PROVIDERS: PCP Nurse Practitioner Family; Visit Provider Nurse Practitioner Adult Health
DX: Z20.822 Contact with and (suspected) exposure to COVID-19 (principal)
CPT/HCPCS: U0003

== ENCOUNTER 2021-02-20 15:21 | Outpatient (REF) | payer BC, SELFPAY ==
[2021-02-20 14:37] LABS: Bilirubin Moderate (Negative); Blood Large (Negative); Clarity Cloudy (Clear); Glucose Negative (Negative); Ketones 15 mg/dL (Negative); Leukocyte Esterase Trace (Negative); Nitrite Positive (Negative); Specific Gravity >= 1.030 (1.005-1.025); pH 5.5 (5-8)
[2021-02-20 15:16] LABS: WBC >50 HPF (0-5)
[2021-02-20 15:17] LABS: Bacteria Moderate HPF (Negative); C & S Indicated? C&S Done As Ordered; Casts 0-2 Coarse Granular LPF (Negative); Crystals Negative HPF (Negative); Epithelial Cells Few HPF (Negative); Mucus Negative (Negative); Other Cells Negative (Negative); RBC 20-50 HPF (0-2)
== END 2021-02-20 15:22 | disposition home or self-care (01) ==
LOC: NCHCN 15:21
PROVIDERS: PCP Nurse Practitioner Family; Visit Provider Family Medicine
DX: N39.0 Urinary tract infection, site not specified (principal)
CPT/HCPCS: 87077; 81003; 81015; 87086

== ENCOUNTER 2021-02-20 16:18 | Inpatient (IN) | payer BC, SELFPAY ==
[2021-02-20] VITALS (13 sets, daily range): BP systolic 68–145; BP diastolic 40–102; PULSE 79–85; RESP 16–23; TEMP 36.4–36.9; O2SAT 93–99
--- NOTE | 2021-02-20 16:45 | DI.RAD_ITS ---
EXAM: XR SHOULDER LT COMPLETE 2+V CLINICAL HISTORY: left shoulder pain. TECHNIQUE: 2D digital imaging was performed. COMPARISON: No exams were available for comparison FINDINGS: There is no evidence of fracture or dislocation. No abnormal soft tissue calcifications. There are moderate degenerative changes in the glenohumeral joint. Mild degenerative changes in the AC joint. Subacromial space is not diminished. No osseous lesions. IMPRESSION: DATA REPOSITORY: RADIATION DOSE DELIVERED:
--- NOTE | 2021-02-20 16:45 | RT.EKG_ITS ---
APPROVED REPORT Exam: Resting ECG Patient Location: E HR:76 bpm ECG Measurements Heart Rate [address] 151 P 73 QRSd 100 QRS 83 QT 374 T 87 QTc 421 Conclusion Sinus rhythm...normal P axis, V-rate 60- 99
--- NOTE | 2021-02-20 16:45 | DI.CT_ITS ---
EXAM: CT ABDOMEN PELVIS W CLINICAL HISTORY: diarrhea, quad. TECHNIQUE: Imaging Protocol: Axial computed tomography images with coronal and sagittal reformatted images were created and reviewed CONTRAST MATERIAL: Intravenous: [id number] Oral: None COMPARISON: CT CT CHEST/ABD/PEL W from 10/26/2020 FINDINGS: VISUALIZED LUNG BASES: Mild increased markings both lung bases. No pleural effusions.. No pericardi al effusion. ABDOMEN: There is no ascites. LIVER: There are no focal hepatic lesions evident . GALLBLADDER/BILIARY: Mildly distended gallbladder. No no gallstones seen. No gallbladder wall edema or pericholecystic fluid. CBD is not dilated. PANCREAS: No evidence of pancreatic mass nor dilatation of the pancreatic duct. SPLEEN: Spleen is not enlarged. No obvious intrasplenic lesions. Splenic and portal veins are paten t. ADRENALS: There are no significant adrenal masses. KIDNEYS:No cysts evident. No solid renal masses. No calculi nor hydronephrosis.. ABDOMINAL AORTA: Some atherosclerotic disease. No aneurysm. LYMPH NODES:There is no retroperitineal nor paraaortic adenopathy. ABDOMINAL WALL/GI: No evidence of significant anterior abdominal wall hernia. There is a suprapubic catheter in the urinary bladder. There is abundant fecal material in the rectum which is somewhat distended. Dilated small and large bowel loops above this level evident consistent with element probable fecal impaction PELVIS: GI: No evidence of appendicitis.No evidence of sigmoid diverticulitis. LYMPH NODES: No intrapelvic adenopathy. Shotty lymph nodes are noted in both groins. REPRODUCTIVE: Prostate not enlarged URINARY BLADDER: Suprapubic catheter in satisfactory position. OSSEOUS: There is dystrophic calcification around the right hip. In addition, there is soft tissue e lizzie over both buttocks which are partially included in the field of view. The subjacent ischial tub erosities appear intact with no evidence of osteomyelitis. IMPRESSION: 1. There is fecal rectal impaction with significant dilatation of the colon and small bowel. Consist ent with element of obstruction due to the fecal impaction. 2. There is subcutaneous soft tissue infiltration in both gluteal regions without evidence of subjace nt osteomyelitis in the ischial tuberosities. Although there are no discrete ulcers in the field of view of this study, recommend direct clinical observation. 3. Dystrophic calcifications seen around the right hip which can be seen in the setting of chronic no nambulatory status. There is no osseous destruction of the femoral head and neck. 4. There is a suprapubic catheter which appears to be well positioned in the urinary bladder. Bladde r is not distended. RADIATION DOSE DELIVERED: 1,235.22mGy.cm Total DLP DATA REPOSITORY: All CT scans at this facility are submitted to the National Radiology Data Registry (NRDR) Dose Index Registry (DIR) with the [employer] (ACR). RADIATION OPTIMIZATION: All CT scans at this facility use at least one of these dose optimization te chniques: automated exposure control; mA and/or kV adjustment per patient size (includes targeted exa ms where dose is matched to clinical indication); or iterative reconstruction.
[2021-02-20 17:22] LABS: Bilirubin Moderate (Negative); Blood Large (Negative); Clarity Sl Cloudy (Clear); Glucose Negative (Negative); Ketones Negative (Negative); Leukocyte Esterase Negative (Negative); Nitrite Positive (Negative); Specific Gravity >= 1.030 (1.005-1.025); pH 5.5 (5-8)
--- NOTE | 2021-02-20 17:25 | ED.GENADUL_ITS ---
Discharge Plan Discharge Details Chief Complaint: Nausea/Vomit/Diar Admit Date/Time: 02/20/21 20:52 Admit Provider: Lauri Larry Attending Provider: Lauri Larry Primary Care Provider: Rayna Pino ED Provider: Alexa Lamb Medical Decision Making Patient with bilateral pressure ulcers Concern regarding need for wound care Patient also with incomplete disimpaction, persistent diarrhea, concern that patient will need enema and oral laxative Diagnostic labs do not show acute pathology aside from suspected urinary tract infection, patient was started on ceftriaxone He is agreeable to admission at this time I did perform manual disimpaction which was moderately successful also received enema No evidence of osteomyelitis on CT scan, bowel obstruction secondary to rectal impaction Patient noted to be diaphoretic, baseline per patient reportedly Differential Diagnosis Differential Diagnosis: Bowel obstruction, osteomyelitis, obstipation, urinary tract infection Medical Records Medical records reviewed: Yes I reviewed the patient's medical records. Lab Data Lab results reviewed: Yes I reviewed the patient's lab results. HPI This 55-year-old male presents with report of diarrhea for the past several months but worsening over the past several days. Has had 10+ episodes of diarrhea today. Denies any fever or chills. Also reports left shoulder pain. His urine has been dark today he reports. He does not have any sensation from his nipple line down, secondary to his spinal trauma from October. He states he is currently residing at [facility]. He has a suprapubic catheter which is draining. He does have a remote history of C. difficile colitis, this was approximately 2 years ago when he was on antibiotics for an infected wound she reports. Denies weakness or dizziness. General Date/Time Provider Initiated Documentation: 02/20/21 16:23 . Related Data Home Medications Medication Instructions Recorded Confirmed Lactobacillus acidoph-L.bulgaricus 1 tab PO TID tab 01/29/21 02/20/21 1 million cell tablet acetaminophen 500 mg capsule 1,000 mg PO Q8H PRN PRN cap 01/29/21 02/20/21 albuterol sulfate 90 mcg/actuation 2 inh INHALATION Q4H PRN 01/29/21 02/20/21 breath activated powder inhaler apixaban 5 mg tablet 5 mg PO BID 01/29/21 02/20/21 bisacodyl 10 mg rectal suppository 10 mg [place] DAILY PRN 01/29/21 02/20/21 buspirone 10 mg tablet 10 mg PO TID tab 01/29/21 02/20/21 diclofenac sodium 1 % topical gel 1 applic TOPICAL Q6H PRN g 01/29/21 02/20/21 docusate sodium 100 mg capsule 100 mg PO BID 01/29/21 02/20/21 lactulose 20 gram/30 mL oral 30 ml PO DAILY ml 01/29/21 02/20/21 solution magnesium hydroxide 400 mg/5 mL 30 ml PO DAILY PRN 01/29/21 02/20/21 oral suspension melatonin 5 mg tablet 5 mg PO HS PRN tab 01/29/21 02/20/21 midodrine 2.5 mg tablet 5 mg PO BID tab 01/29/21 02/20/21 mirtazapine 45 mg tablet 45 mg PO QHS 01/29/21 02/20/21 phenyleph-shark liver 1 applic NH Q6H PRN 01/29/21 02/20/21 [id number] rectal cream polyethylene glycol 3350 17 17 g PO DAILY 01/29/21 02/20/21 gram/dose oral powder sennosides 8.6 mg capsule 17.2 mg PO BID 01/29/21 02/20/21 tizanidine 2 mg capsule 4 mg PO Q6H PRN cap 01/29/21 baclofen 5 mg PO Q6H PRN 02/20/21 02/20/21 ondansetron HCl [Zofran] 4 mg PO Q8H PRN 02/20/21 02/20/21 sodium phosphates [Fleet Enema] 118 ml NH PRN PRN 02/20/21 02/20/21 zolpidem 5 mg PO HS 02/20/21 02/20/21 Allergies Allergy/AdvReac Type Severity Reaction Status Date / Time No Known Allergies Allergy Unverified 11/26/18 03:46 General Stated Complaint: Nausea/Vomit/Diar LU: 3 Review of Systems Narrative: Review of systems obtained x7 aside from where indicated in HPI [facility] Medical History (Updated 02/20/21 @ 22:10 by Lauri Larry MD) Acute embolism and thrombosis of deep vein of right lower extremity Anxiety disorder C. difficile colitis Dislocation of C6/C7 cervical vertebrae Fall down embankment Fusion of spine Hypotension Major depressive disorder Neurogenic bladder Quadriplegia Social History Smoking/Tobacco Use Status: Never Smoking risk assessment performed?: Yes Alcohol Intake: current Alcohol Intake frequency: a few times a week Drug use: Occasionally Substance use type: marijuana Do you feel safe at home: Yes Do you feel safe in your relationship?: Yes Exam Const General: cooperative, no acute distress and ill appearing Chest Chest: normal inspection of the chest Resp Effort & Inspection: normal respiratory effort Cardio Rate: regular rate Rhythm: regular rhythm GI Other: Distended abdomen Other: Patient with stool noted in the vault, persistent diarrhea Neuro General: patient alert and patient oriented x3 Extrem Other: Bilateral stage III to stage IV ulcer noted at the ischial region bilaterally No obvious erythema Course Vital Signs Vital signs: Vital Signs Temperature 36.4 C L 02/20/21 16:24 Pulse 80 02/20/21 16:24 Respiratory Rate 16 02/20/21 16:24 Blood Pressure 145/102 H 02/20/21 16:24 Pulse Oximetry 96 02/20/21 16:24 Temperature 36.4 C L 02/20/21 16:24 Temperature Source Temporal Artery Scan 02/20/21 16:24 Pulse 80 02/20/21 16:24 Respiratory Rate 16 02/20/21 16:24 Respiratory Effort 02/20/21 16:32 Blood Pressure 145/102 H 02/20/21 16:24 Blood Pressure Position Supine 02/20/21 16:24 Pulse Oximetry 96 02/20/21 16:24 Oxygen Delivery Method Room Air 02/20/21 16:24 Oxygen Flow Rate 0 02/20/21 16:24 Pain Level 6 02/20/21 16:24 Comment 02/20/21 16:24
[2021-02-20] MEDS: Normal Saline 1,000 ML 1000 ML IV (17:27)
[2021-02-20 17:29] LABS: Bacteria Few HPF (Negative); C & S Indicated? Yes; Casts Negative LPF (Negative); Crystals Negative HPF (Negative); Epithelial Cells Rare HPF (Negative); Mucus Negative (Negative); Other Cells Negative (Negative)
[2021-02-20 17:33] LABS: Abs Immature Grans 0.03 10^3/uL (0.0-0.06); Absolute Basophil Count 0.03 10^3/uL (0.0-0.2); Absolute Eosinophil Count 0.14 10^3/uL (0.0-0.7); Absolute Monocyte Count 1.16 10^3/uL (0.1-0.8); Absolute Neutrophil Count 5.41 10^3/uL (1.2-6.7); Basophils % 0.4; Eosinophils % 1.7; HCT 30.5 % (40.0-50.0); HGB 9.7 g/dL (13.5-17.5); Immature Grans % 0.4; Lymphocytes % 16.1; MCH 27.2 pg (27.0-33.0); MCHC 31.8 % (32.0-36.0); MCV 85.4 fL (80-95); MPV 9.6 fL (8.0-11.0); Monocytes % 14.4; Nucleated RBC 0 %; Platelet Count 314 10^3/uL (130-400); RBC 3.57 10^6/uL (4.36-5.78); RDW 12.9 % (11.8-14.1); WBC 8.07 10^3/uL (4.4-10.8)
[2021-02-20 18:02] LABS: ALT 33 U/L (16-63); AST 11 U/L (15-37); Albumin 2.5 g/dL (3.4-5.0); Alkaline Phosphatase 76 U/L (46-116); Anion Gap 10.9 mmol/L (3-11); BUN 35 mg/dL (7-18); Bilirubin, Total 0.6 mg/dL (0.2-1.0); C-Reactive Protein 19.71 mg/dL (0.0-0.3); CO2 24.1 mmol/L (21.0-32.0); CREATININE 1.1 mg/dL (0.70-1.30); Calcium 9.2 mg/dL (8.5-10.1); Chloride 100 mmol/L (98-107); Glucose 113 mg/dL (74-106); Lipase 225 U/L (73-393); Magnesium 2.4 mg/dL (1.8-2.4); Potassium 3.9 mmol/L (3.5-5.1); Sodium 135 mmol/L (136-145); Total Protein 6.7 g/dL (6.4-8.2)
[2021-02-20 18:27] LABS: C Diff PCR Negative (Negative)
[2021-02-20] MEDS: Normal Saline - Diluent 50 ML VIAL IV (19:36)
--- NOTE | 2021-02-20 19:54 | DI.VRAD_ITS ---
PROCEDURE INFORMATION: Exam: CT Abdomen And Pelvis With Contrast Exam date and time: 02/20/2021 4:55 PM Age: 55 years old Clinical indication: Pain; Other: Diarrhea quadriplegic TECHNIQUE: Imaging protocol: Computed tomography of the abdomen and pelvis with contrast. Total images: 1329 COMPARISON: CT CHEST/ABD/PEL W 10/26/2020 8:50 PM FINDINGS: Lungs: Mild atelectasis in the lung bases. Heart: Heart size normal. Mediastinal space: The visualized distal esophagus is normal. Liver: Normal contour. No mass lesions. No intrahepatic biliary ductal dilatation. Granulomatous calcifications in the liver. Gallbladder and bile ducts: Normal. No calcified stones. No ductal dilation. Pancreas: Normal. No inflammatory changes or ductal dilation. Spleen: Normal. No splenomegaly. Adrenal glands: Normal. No adrenal mass. Kidneys and ureters: No acute abnormalities. No hydronephrosis or hydroureter. No urinary tract stones are identified. Stomach and bowel: The stomach is largely contracted without gross abnormality. Moderate generalized distention of the small bowel with fluid and gas with mild dilatation of a few segments reaching 3.5 cm diameter without associated wall thickening and no transition point. Moderate generalized distention of the colon with fluid and gas, with numerous fluid levels. There is a large amount of stool in the rectum which measures 9 cm in diameter. In combination with the diffuse fluid and gaseous distention of the small and large bowel, this is concerning for obstructive rectal fecal impaction. There is wall thickening in the rectum with moderate surrounding stranding concerning for an element of stercoral colitis. Appendix: The appendix is normal in caliber and demonstrates no evidence of appendicitis. Intraperitoneal space: No free fluid or air. Vasculature: Mild atherosclerotic aortoiliac calcification without aneurysm. Lymph nodes: No adenopathy. Urinary bladder: There is a suprapubic catheter in place in the bladder lumen. The bladder is fully contracted without gross abnormality. Reproductive: Unremarkable as visualized. Bones/joints: No acute osseous abnormalities. Periarticular calcifications around the right hip probably relate to chronic nonambulatory status, new since 10/26/2020. Moderate disc space narrowing marginal spurring L5-S1. Soft tissues: Mild soft tissue stranding/edema in the peripheral subcutaneous tissues suggesting volume overload or anasarca. At the lowest edge of the scan range, there is excessive subcutaneous soft tissue stranding posteriorly near the level of the ischial tuberosities with no discrete defect in the overlying skin. Correlate clinically to exclude developing pressure ulceration in the region. No abscess. IMPRESSION: 1. There is evidence of rectal fecal impaction and associated distal colonic obstruction, with moderate generalized dilatation of the small and large bowel demonstrating numerous fluid levels. 2. There is evidence of associated stercoral colitis in the rectum. No evidence of perforation or abscess. 3. Suprapubic catheter well positioned in the urinary bladder, which is contracted but otherwise unremarkable. 4. Periarticular calcifications around the right hip which are new since 10/26/2020. This can be seen in the setting of chronic nonambulatory status and there are no secondary signs to suggest septic joint. 5. Subcutaneous soft tissue stranding/infiltration in the bilateral lower gluteal distributions near the level of the ischial tuberosities which may indicate early decubitus ulcer development although no discrete ulcer crater or abscess is seen within the scan range, direct clinical assessment of this region recommended. Dictated and Authenticated by: Lauri Pate MD. Ordering:NALINI Liu MD
--- NOTE | 2021-02-20 19:55 | DI.VRAD_ITS ---
PROCEDURE INFORMATION: Exam: XR Left Shoulder Exam date and time: 02/20/2021 6:55 PM Age: 55 years old Clinical indication: Other: Lt shoulder pain TECHNIQUE: Imaging protocol: XR Left shoulder. Views: 2 or more views. Total images: 3 COMPARISON: No relevant prior studies available. FINDINGS: Bones/joints: No fractures. Glenohumeral alignment is normal. A.C. joint alignment is normal. No blastic or lytic lesions. Pleural space: No visible pleural effusion or pneumothorax. Soft tissues: No gross soft tissue abnormalities. Other findings: Adjacent ribs and lung parenchyma are unremarkable. IMPRESSION: No acute findings. Dictated and Authenticated by: Lauri Pate MD. Ordering:NALINI Liu MD
[2021-02-20] MEDS: cefTRIAXone 1 GM VIAL IV (20:57)
[2021-02-20 21:11] LABS: Source Nasal/Nares
[2021-02-20] MEDS: Acetaminophen 325 MG TAB 1000 MG PO (21:39)
--- NOTE | 2021-02-20 21:55 | HPE_ITS ---
Date of service: 02/20/21 Time of Service: 21:55 Assessment and Plan Assessment and plan (1) Constipation: Status: Acute Assessment and plan: The PA in the emergency department did a disimpaction. He has air-fluid levels in his abdomen. There is still a lot of stool present. He has large decubiti as his ischial tuberosities. There is no active infection. I will increase his MiraLAX to twice a day and order a soapsuds enema tomorrow. We will have care management seeing him. Wound configuration management analyst should see him also. (2) Decubitus skin ulcer: Status: Acute History of Present Illness History of Present Illness Chief Complaint: Constipation and diarrhea Narrative: This 55-year-old male is here because of constipation and diarrhea. He has quadriplegia secondary to a fall on [place] of last year. He dislocate d his C6-7 and was transferred to [facility] for 1 and 1/2 months. He then was transferred to [facility] where he was there for 2 months. He recently was admitted to [facility] and rehab and was transferred from there today for further evaluation of diarrhea. He was found to have a rectal impaction and multiple air-fluid levels on his abdominal CT scan. He also has large decubiti of his buttocks over his ischial tuberosities. He does not have any sensation problems chest down. He can move his arms some but has no use of his hands. His fingers are mostly numb. He has no sensation of his lower extremities. He has a suprapubic catheter in place. He wants to be transferred to another rehab facility as he says he developed bedsores within 1 week of being [facility]. He has applications in place but has not heard of beds being available yet. He can feed himself at times using adaptive. [employer]. He does wish to be a full code. Does have a mother and father who lives locally as well as 2 grown children who are 27 and 25 years old.` Review of Systems All systems reviewed & are unremarkable except as noted in HPI and below Constitutional Comments: He has had no chills or fever, nausea or vomiting. [facility] Medical History (Updated 02/20/21 @ 22:10 by Lauri Larry MD) Acute embolism and thrombosis of deep vein of right lower extremity Anxiety disorder C. difficile colitis Dislocation of C6/C7 cervical vertebrae Fall down embankment Fusion of spine Hypotension Major depressive disorder Neurogenic bladder Quadriplegia Social History Smoking/Tobacco Use Status: Never Smoking risk assessment performed?: Yes Alcohol Intake: current Alcohol Intake frequency: a few times a week Drug use: Occasionally Substance use type: marijuana Do you feel safe at home: Yes Do you feel safe in your relationship?: Yes Meds Allergies and Home Medications Allergies Allergy/AdvReac Type Severity Reaction Status Date / Time No Known Allergies Allergy Unverified 11/26/18 03:46 Home Medications Medication Instructions Recorded Confirmed Type Lactobacillus acidoph-L.bulgaricus 1 tab PO TID tab 01/29/21 02/20/21 History 1 million cell tablet acetaminophen 500 mg capsule 1,000 mg PO Q8H PRN PRN cap 01/29/21 02/20/21 History albuterol sulfate 90 mcg/actuation 2 inh INHALATION Q4H PRN 01/29/21 02/20/21 History breath activated powder inhaler apixaban 5 mg tablet 5 mg PO BID 01/29/21 02/20/21 History bisacodyl 10 mg rectal suppository 10 mg MT DAILY PRN 01/29/21 02/20/21 History buspirone 10 mg tablet 10 mg PO TID tab 01/29/21 02/20/21 History diclofenac sodium 1 % topical gel 1 applic TOPICAL Q6H PRN g 01/29/21 02/20/21 History docusate sodium 100 mg capsule 100 mg PO BID 01/29/21 02/20/21 History lactulose 20 gram/30 mL oral 30 ml PO DAILY ml 01/29/21 02/20/21 History solution magnesium hydroxide 400 mg/5 mL 30 ml PO DAILY PRN 01/29/21 02/20/21 History oral suspension melatonin 5 mg tablet 5 mg PO HS PRN tab 01/29/21 02/20/21 History midodrine 2.5 mg tablet 5 mg PO BID tab 01/29/21 02/20/21 History mirtazapine 45 mg tablet 45 mg PO QHS 01/29/21 02/20/21 History phenyleph-shark liver 1 applic MT Q6H PRN 01/29/21 02/20/21 History siv-lodgkf-vsp rectal cream polyethylene glycol 3350 17 17 g PO DAILY 01/29/21 02/20/21 History gram/dose oral powder sennosides 8.6 mg capsule 17.2 mg PO BID 01/29/21 02/20/21 History tizanidine 2 mg capsule 4 mg PO Q6H PRN cap 01/29/21 History baclofen 5 mg PO Q6H PRN 02/20/21 02/20/21 History ondansetron HCl [Zofran] 4 mg PO Q8H PRN 02/20/21 02/20/21 History sodium phosphates [Fleet Enema] 118 ml MT PRN PRN 02/20/21 02/20/21 History zolpidem 5 mg PO HS 02/20/21 02/20/21 History Exam Narrative Exam Narrative: Alert and oriented. Const General: cooperative and no acute distress HENUT Head: normal to inspection Ears: hearing grossly normal bilaterally Eyes General: appearance normal, both eyes and all related structures Neck Neck: normal visual inspection Lymphatic: no lymphadenopathy noted Chest Chest: normal inspection of the chest Resp Effort & Inspection: normal respiratory effort Auscultation: clear to auscultation bilaterally Cardio Rhythm: regular rhythm Heart Sounds: S1 normal and S2 normal GI Inspection: normal to inspection Palpation: no hepatosplenomegaly Skin Other: He has 2 large decubiti that appear to be quite deep ischial areas. They measure about 9 cm in diameter each. There does not appear to be any secondary infection. He has a suprapubic catheter in place. Neuro Other: He has a few involuntary movements of his lower extremities. There is no active motion. He can move his arms some but his hands are gripped involuntarily. Results Labs Result diagrams: 02/20/21 17:20 02/20/21 17:20 Labs: Laboratory Results - last 24 hr 02/20/21 02/20/21 02/20/21 17:00 17:00 17:20 WBC RBC Hgb Hct MCV MCH MCHC RDW Plt Count MPV Immature Gran % Neutrophils % Lymphocytes % Monocytes % Eosinophils % Basophils % Nucleated RBC % Absolute Neutrophils Absolute Lymphocytes Absolute Monocytes Absolute Eosinophils Absolute Basophils Sodium 135 L Potassium 3.9 Chloride 100 Carbon Dioxide 24.1 Anion Gap 10.9 BUN 35 H Creatinine 1.1 Estimated GFR/1.73 m2 >= 60.00 Glucose 113 H Calcium 9.2 Magnesium 2.4 Total Bilirubin 0.6 AST 11 L ALT 33 Alkaline Phosphatase 76 C-Reactive Protein 19.71 H Total Protein 6.7 Albumin 2.5 L Lipase 225 Urine Color Yellow Urine Clarity Sl cloudy Urine pH 5.5 Ur Specific [place] >= 1.030 H Urine Protein >=300 H Urine Ketones Negative Urine Blood Large H Urine Nitrite Positive H Urine Bilirubin Moderate H Urine Urobilinogen 1.0 H Ur Leukocyte Esterase Negative Urine RBC 10-20 H Urine WBC 10-20 H Ur Epithelial Cells Rare Urine Crystals Negative Urine Bacteria Few Urine Casts Negative Urine Mucus Negative Urine Other Negative Ur Culture Indicated? Yes Urine Glucose Negative Stl C.difficile Tox PCR Negative COVID-19 Source 02/20/21 02/20/21 17:20 20:17 WBC 8.07 RBC 3.57 L Hgb 9.7 L Hct 30.5 L MCV 85.4 MCH 27.2 MCHC 31.8 L RDW 12.9 Plt Count 314 MPV 9.6 Immature Gran % 0.4 Neutrophils % 67.0 Lymphocytes % 16.1 Monocytes % 14.4 Eosinophils % 1.7 Basophils % 0.4 Nucleated RBC % 0 Absolute Neutrophils 5.41 Absolute Lymphocytes 1.30 Absolute Monocytes 1.16 H Absolute Eosinophils 0.14 Absolute Basophils 0.03 Sodium Potassium Chloride Carbon Dioxide Anion Gap BUN Creatinine Estimated GFR/1.73 m2 Glucose Calcium Magnesium Total Bilirubin AST ALT Alkaline Phosphatase C-Reactive Protein Total Protein Albumin Lipase Urine Color Urine Clarity Urine pH Ur Specific [place] Urine Protein Urine Ketones Urine Blood Urine Nitrite Urine Bilirubin Urine Urobilinogen Ur Leukocyte Esterase Urine RBC Urine WBC Ur Epithelial Cells Urine Crystals Urine Bacteria Urine Casts Urine Mucus Urine Other Ur Culture Indicated? Urine Glucose Stl C.difficile Tox PCR COVID-19 Source Nasal/nares Last Vital Signs Temp 36.4 C L 02/20/21 16:24 Pulse 79 02/20/21 19:16 Resp 22 02/20/21 19:20 BP 96/55 L 02/20/21 19:16 Pulse Ox 97 02/20/21 19:20 COVID-19 Screening Have you, or household traveled for leisure in last 14 days?: No Had IN PERSON contact w/suspected or confirmed C-19 person: No
[2021-02-20 23:22] LABS: COVID-19 PCR Negative (Negative)
[2021-02-20] MEDS: Zolpidem 5 MG TAB PO (23:42)
[2021-02-20] MEDS: Mirtazapine 15 MG TAB 45 MG PO (23:42)
[2021-02-20] MEDS: Lactated Ringers 500 ML IV (23:45)
[2021-02-21] MEDS: Lactated Ringers 1,000 ML 125 ML IV ×4 (00:45→23:45)
[2021-02-21 01:35] VITALS: BP 90/60
[2021-02-21 04:06] VITALS: BP 92/62; PULSE 82; RESP 17; TEMP 37.1; O2SAT 96
[2021-02-21 07:46] VITALS: BP 118/66; PULSE 78; RESP 18; TEMP 36.9; O2SAT 96
[2021-02-21] MEDS: Midodrine 2.5 MG TAB 5 MG PO ×2 (07:59→21:12)
[2021-02-21] MEDS: Lactobacillus Acidophilus CAP 1 CAP PO ×3 (08:00→21:12)
[2021-02-21] MEDS: busPIRone 5 MG TAB 10 MG PO ×3 (08:00→21:12)
[2021-02-21] MEDS: Acetaminophen 325 MG TAB 650 MG PO (08:00)
[2021-02-21] MEDS: Docusate Sodium 100 MG CAP PO ×2 (08:01→21:12)
[2021-02-21] MEDS: Polyethylene Glycol 3350 17 GM PACKET PO ×2 (08:01→21:13)
[2021-02-21] MEDS: Baclofen 10 MG TAB 5 MG PO ×2 (08:07→15:18)
--- NOTE | 2021-02-21 10:56 | WOUNDCONS ---
- If Service Date Differs Date of service: 02/21/21 Time of Service: 09:30 Wound Initial Evaluation Narrative: Pt agreeable to wound consult. Pt gives consent for photographs @ this time. Chart reviewed including H&P, labs, and pertinent information. Unclear how long pt has had these pressure injuries, Pt says about a month. Comes [facility] Wounds cleansed and measured, see below for details. Soft, but adherent eschar caps on right and left ishial tuberosity wounds, unable to loosen any debris with cleanser and gauze. Pt is incontinent of stool, which wounds were covered in after liquid BM. Best, fastest option would be surgical intervention to remove necrotic tissue. This mornings elequis dose was held pending surgical consult. Implemented hydrogel and foam @ this time to soften eschar and keep wounds protected from stool until surgical team can see Pt. Recommend implementing turn schedule for Pt @ this time. Offloading heel boots applied to bilateral feet. Recommend assessing DTI on Right lateral foot Q shift, watch for deterioration. - Wound Right Ishial Tuberosity Wound Type: Pressure Ulcer Pressure Ulcer Stage: Eschar/Unstageable Wound General Appearance: Necrotic Wound Bed Greatest Portion: Black (Eschar) (soft eschar) Wound Bed Lesser Portion: Black (Eschar) Wound Surrounding Tissue Appearance: Bright Red, Indurated Percent of Wound Bed Granulated/Red: 0 Percent of Wound Bed Eschar/Black: 100 Wound Length: 4.5 cm Wound Width: 3.3 cm Wound Depth: 0.3 cm (probed w/qtip) Wound Drainage Amount: None (unable to tell amount of drainage, wound Open to air at time of assessment, incontinent of liquid stool.) Wound Topical Solution/Irrigant: Medicated Gel (anasept gel applied to eschar) Left ishial Tuberosity Wound Type: Pressure Ulcer Pressure Ulcer Stage: IV (muscle seen, soft eschar cap present) Wound General Appearance: Necrotic Wound Bed Greatest Portion: Black (Eschar) Wound Bed Lesser Portion: Pale [place] Wound Surrounding Tissue Appearance: Bright Red, Indurated Percent of Wound Bed Granulated/Red: 0 Percent of Wound Bed Slough/Yellow: 10 Percent of Wound Bed Eschar/Black: 90 Wound Length: 6.6 cm Wound Width: 4.6 cm Wound Depth: 2.6 cm (only able to probe to 2.6, likely deeper under eschar) Wound Drainage Amount: None (unable to tell amount of drainage, wound Open to air at time of assessment, incontinent of liquid stool.) Wound Topical Solution/Irrigant: Medicated Gel (anaspet gel applied to wound/eschar) Right Lateral foot Wound Type: Pressure Ulcer Pressure Ulcer Stage: Eschar/Unstageable (DTI) Wound General Appearance: Necrotic (deep purple discooartion, not open @ this time.) Wound Length: 1 cm Wound Width: 1.2 cm Wound Depth: 0 cm Wound Drainage Description: No drainage - Circulation, Sensation, Motion Edema Degree: 1+ Peripheral Pulse Strength: Weak Capillary Refill: Less than 3 seconds Sensation Description: Numbness (Quadrapalegic) Skin Temperature: Hot Skin Color: Normal - MAURILIO Comment:: not indicated - Pain Pain Level: 0 Pain Scale Used: Adult - Treatment/Dressing Change Topicals/Ointments: Hydrogel(Duoderm) (Anasept used on L & R ishiahl tuberosity wounds) Cleanse With: Saline Dressing Types: Foam - Recomendation Recomendation:: Recommend surgical consult for possible surgical debridement of wound. While waiting for surgical consult recommend the following dressing changes: Right and Left Ishial Tuberosities: Cleanse wounds with wound cleanser w/surfactant. pat dry. apply skin prep to serge wound. Apply Anasept gel to eschar. cover with foam w/border. Change daily and PRN. Reposition Pt Q2H. Apply offloading booties to bilateral feet @ all times. Physcian/Nurse Practioner Notified: Yes (Eliane Tolliver NP) Referrals: Dietary (needs nutrition concult for wounds), Physical Therapy (will possibly need after surgical debridment for proper fitting wheelchair cushion and appropriate support sufraces.), Surgeon (? surgical debridment)
[2021-02-21 11:04] VITALS: BP 122/67; PULSE 77; RESP 18; TEMP 36.9; O2SAT 96
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
[2021-02-21] MEDS: Lactulose 20 GM/30 ML CUP PO (15:18)
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
--- NOTE | 2021-02-21 15:49 | PGE_ITS ---
Date of Service Date of service: 02/21/21 Time of Service: 11:00 Assessment and Plan Assessment and plan (1) Constipation: Start date: 02/21/21 Start time: 15:52 Status: Acute Assessment and plan: Disimpacted in the ED. Stool present having diarrhea but needs to have large bm or at least several moderate soft with diarrhea bm. MiraLAX increased to twice a day and soapsuds enema ordered. Also placed on scheduled lactulose and senna He refused this am, but explained to him why it was important to take and he was agreeable to taking medication (2) Decubitus skin ulcer: Start date: 02/21/21 Start time: 15:55 Status: Acute Assessment and plan: He has large decubiti as his ischial tuberosities. There is no active infection. Wound consult placed, Recommnded surgery for debridement and PT/OT and nutrition above case discussed with Dr. Olson Subjective Subjective Patient reports: other Interval history since last seen: Sitting up with HOB at 45 degree angle, able to move his arms freely, refused bowel meds this am. Explained to him why bowel meds important and he is agreeable to meds. Denies CP, SOB, Nvd Exam Narrative Exam Narrative: Alert and oriented. Const General: cooperative and no acute distress HENMT Head: normal to inspection Ears: hearing grossly normal bilaterally Eyes General: appearance normal, both eyes and all related structures Neck Neck: normal visual inspection Lymphatic: no lymphadenopathy noted Chest Chest: normal inspection of the chest Resp Effort & Inspection: normal respiratory effort Auscultation: clear to auscultation bilaterally Cardio Rhythm: regular rhythm Heart Sounds: S1 normal and S2 normal GI Inspection: normal to inspection Palpation: no hepatosplenomegaly Objective Last Vital Signs Temp 36.9 C 02/21/21 11:04 Pulse 77 02/21/21 11:04 Resp 18 02/21/21 11:04 BP 122/67 02/21/21 11:04 Pulse Ox 96 02/21/21 11:04 Laboratory Results - last 24 hr 02/20/21 02/20/21 02/20/21 17:00 17:00 17:20 WBC RBC Hgb Hct MCV MCH MCHC RDW Plt Count MPV Immature Gran % Neutrophils % Lymphocytes % Monocytes % Eosinophils % Basophils % Nucleated RBC % Absolute Neutrophils Absolute Lymphocytes Absolute Monocytes Absolute Eosinophils Absolute Basophils Sodium 135 L Potassium 3.9 Chloride 100 Carbon Dioxide 24.1 Anion Gap 10.9 BUN 35 H Creatinine 1.1 Estimated GFR/1.73 m2 >= 60.00 Glucose 113 H Calcium 9.2 Magnesium 2.4 Total Bilirubin 0.6 AST 11 L ALT 33 Alkaline Phosphatase 76 C-Reactive Protein 19.71 H Total Protein 6.7 Albumin 2.5 L Lipase 225 Urine Color Yellow Urine Clarity Sl cloudy Urine pH 5.5 Ur Specific [place] >= 1.030 H Urine Protein >=300 H Urine Ketones Negative Urine Blood Large H Urine Nitrite Positive H Urine Bilirubin Moderate H Urine Urobilinogen 1.0 H Ur Leukocyte Esterase Negative Urine RBC 10-20 H Urine WBC 10-20 H Ur Epithelial Cells Rare Urine Crystals Negative Urine Bacteria Few Urine Casts Negative Urine Mucus Negative Urine Other Negative Ur Culture Indicated? Yes Urine Glucose Negative Stl C.difficile Tox PCR Negative COVID-19 Source SARS-CoV-2 (PCR) 02/20/21 02/20/21 17:20 20:17 WBC 8.07 RBC 3.57 L Hgb 9.7 L Hct 30.5 L MCV 85.4 MCH 27.2 MCHC 31.8 L RDW 12.9 Plt Count 314 MPV 9.6 Immature Gran % 0.4 Neutrophils % 67.0 Lymphocytes % 16.1 Monocytes % 14.4 Eosinophils % 1.7 Basophils % 0.4 Nucleated RBC % 0 Absolute Neutrophils 5.41 Absolute Lymphocytes 1.30 Absolute Monocytes 1.16 H Absolute Eosinophils 0.14 Absolute Basophils 0.03 Sodium Potassium Chloride Carbon Dioxide Anion Gap BUN Creatinine Estimated GFR/1.73 m2 Glucose Calcium Magnesium Total Bilirubin AST ALT Alkaline Phosphatase C-Reactive Protein Total Protein Albumin Lipase Urine Color Urine Clarity Urine pH Ur Specific [place] Urine Protein Urine Ketones Urine Blood Urine Nitrite Urine Bilirubin Urine Urobilinogen Ur Leukocyte Esterase Urine RBC Urine WBC Ur Epithelial Cells Urine Crystals Urine Bacteria Urine Casts Urine Mucus Urine Other Ur Culture Indicated? Urine Glucose Stl C.difficile Tox PCR COVID-19 Source Nasal/nares SARS-CoV-2 (PCR) Negative
[2021-02-21 17:34] VITALS: BP 148/84; PULSE 87; RESP 18; TEMP 36.5; O2SAT 99
[2021-02-21] MEDS: Mirtazapine 15 MG TAB 45 MG PO (21:11)
[2021-02-21] MEDS: cefTRIAXone 1 GM/50 ML BAG IVPB (21:11)
[2021-02-21] MEDS: Zolpidem 5 MG TAB PO (21:12)
[2021-02-21] MEDS: Apixaban 5 MG TAB PO (21:12)
[2021-02-21] MEDS: Melatonin 3 MG TAB 6 MG PO (21:12)
[2021-02-21] MEDS: Senna TAB 2 TAB PO (21:15)
[2021-02-21 22:51] LABS: Campylobacter PCR Negative (Negative); Salmonella PCR Negative (Negative); Shiga Toxin PCR Negative (Negative); Shigella/Enteroinvasive Ecoli Negative (Negative)
--- NOTE | 2021-02-22 01:36 | NUR.NOTE ---
Nursing Note: Patient's IV kept reporting a downstream occlussion; this RN attempted to fix this issue. IV dressing was changed and IV catheter maneuvered to allow IV pump to function correctly to no avail. Patient informed that another person would assess the site or this RN would place a new IV. Patient reported that it's 1:30 in the morning. This RN clarified with patient that he has the right to refuse treatments and that the provider ordered this to help him progress; patient reported he would wait until later in the morning for a new IV. This RN also clarified with patient if he was refusing all care, including repositioning every two hours which he said he would still like. Will continue to monitor; charge nurse to be notified. This note is also under IV Start/Assess/DC section of the worklist.
[2021-02-22 08:16] VITALS: BP 131/74; PULSE 89; RESP 19; TEMP 37.1; O2SAT 97
[2021-02-22] MEDS: Lactulose 20 GM/30 ML CUP PO (08:20)
[2021-02-22] MEDS: Senna TAB 2 TAB PO ×2 (08:21→20:47)
[2021-02-22] MEDS: Lactobacillus Acidophilus CAP 1 CAP PO ×3 (08:21→20:48)
[2021-02-22] MEDS: busPIRone 5 MG TAB 10 MG PO ×3 (08:21→20:48)
[2021-02-22] MEDS: Polyethylene Glycol 3350 17 GM PACKET PO ×2 (08:21→20:46)
[2021-02-22] MEDS: Midodrine 2.5 MG TAB 5 MG PO ×2 (08:21→20:49)
[2021-02-22] MEDS: Apixaban 5 MG TAB PO ×2 (08:21→20:47)
[2021-02-22] MEDS: Docusate Sodium 100 MG CAP PO ×2 (08:22→20:48)
--- NOTE | 2021-02-22 09:30 | PDOC.CMPRO ---
- If Service Date Differs Date of service: 02/22/21 Time of Service: 09:30 Care Management Progress Note S/O:Favio was lying in bed when CM met with him. He had just had an enema and was feeling uncomfortable. A new regimen was established in an attempt to empty his bowels effectively. He is to have 2 SSEs followed by an abdominal Xray today. This was done and although there was improvement, he still has stool throughout his colon. The SSEs will be repeated tomorrow, followed by another Xray. Favio had a surgical consult yesterday to evaluate his decubitus ulcers. He is scheduled to go to the OR on Thursday for debridemant. A: Favio is a 55 year old man admitted on 02/20/21 with constipation P: Favio will likely return to [facility] when medically ready for discharge. He will continue to seek placement at another facility; referrals have been sent. He will follow up with his PCP and discharge plan and transport via facility W/C van.
[2021-02-22] MEDS: Zinc Sulfate 220 MG TAB PO (12:10)
--- NOTE | 2021-02-22 12:40 | NS.NUTBLAN_ITS ---
Date of service: 02/22/21 Time of Service: 12:40 Nutritional Consult ASSESSMENT: 55 year old male admitted with pressure wound on ishium. PMH: quadriplegia, uses adaptive feeding equipment. BMI wnl and stable x 2 years. Appears well nourished, however, labs indicate low albumin. To aid in wound healing recommend liquid protein 1 oz TID, 220 mg zinc sulfate x 14 days, 500 mg vit C BID and MVI. Continue with regular diet with adaptive equipment. Estimated Needs: [id number] kcal, 120 g protein, 2500 ml fluid. Bruce was asleep when I came to visit. NUTRITIONAL DIAGNOSIS: Increased nutrient needs for wound healing with low vi sceral protein stores INTERVENTION: adaptive feeding equipment supplement with 1 oz liquid protein TID, 220 mg zinc sulfate qd, 500 mg Vit C BID, MVI MONITORING AND EVALUATION: Will monitor po intake, labs and weight Time Spent in Nutritional Counseling and Treatment: 5
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
--- NOTE | 2021-02-22 13:32 | CHAPLAIN ---
Bruce became teary telling me that he was waiting for the doctor to come in and tell him if he needs surgery or not. He said I don't know how this happened. I was a big, strong maryjo. Bruce has been unable to walk since he fell in October, according to Care Management notes. He was at a rehab facility in [place] and has been at [facility] for the past 5 weeks. He said he's been given enemas, but is worried he may have to have surgery. I left when PT arrived to work with Bruce.
[2021-02-22] MEDS: Protein Nutritional Supplement 16 GM 1 OUNCE PACKET PO ×2 (14:45→20:51)
[2021-02-22 15:25] VITALS: BP 163/97; PULSE 94; RESP 12; TEMP 37.9; O2SAT 96
--- NOTE | 2021-02-22 15:27 | DI.RAD_ITS ---
EXAM: 2D digital imaging was performed. CLINICAL HISTORY: constipation. COMPARISON: CT CT ABDOMEN PELVIS W from 02/20/[address] ABDOMEN PELVIS W from 02/20/2021 TECHNIQUE: Supine and upright views of the abdomen was performed. Portable examination FINDINGS: Exam is somewhat limited by portable technique and patient immobility. The visualized portions of the lung bases are clear. No free air seen. There is dilatation of the s tomach and colon. No small bowel dilatation is visible. The findings appear to have improved when c ompared with the previous exam.. Stool is seen throughout the colon. Stool is no longer present in the rectum CALCIFICATIONS: No radiopaque calcifications are visible. OSSEOUS STRUCTURES: Degenerative disc changes. OTHER FINDINGS: None. IMPRESSION: 1. Improvement in colonic distension. No small bowel distention or free air. DATA REPOSITORY: RADIATION DOSE DELIVERED:
[2021-02-22 16:22] VITALS: BP 148/80; PULSE 83; RESP 22; TEMP 37.8; O2SAT 95
--- NOTE | 2021-02-22 16:23 | W.PM.PROGNOT ---
Date of Service Date of service: 02/22/21 Time of Service: 13:15 Assessment and Plan Assessment and plan (1) Decubitus skin ulcer: Status: Acute Assessment and plan: Continue local wound care, consider wet-to-dry; continue to offload/rotate patient q2hrs and prn. PT/OT to evaluate for out-patient wheelchair cushioning, and teaching/guidance on self-directed pressure releases Nutrition consult to aid in healing, and evaluate bowel regimen. Case management evaluation for specialized spinal cord injury care once discharged Qualifiers: Pressure injury location: foot, unspecified location Pressure injury stage: unstageable (2) Constipation: Status: Acute Assessment and plan: Pt with resolving fecal impaction, and diarrhea; May start to decrease enemas from below. Constipation/fecal impaction will unfortunately continue to be a part of the long-term sequelae of his spinal cord injury unless a bowel regimen can be optimized. I started to broach the subject of a possible diverting colostomy in the future if his pressure wounds can't heal adequately, or are recurrent. Qualifiers: Constipation type: unspecified constipation type Qualified Code(s): K59.00 - Constipation, unspecified Subjective Subjective Patient reports: no new complaints, tolerating a regular diet and diarrhea Interval history since last seen: He is not sure of the consistency of his stools. Exam Const General: cooperative, comfortable and no acute distress Orientation: alert, awake and oriented x3 Resp Effort & Inspection: normal respiratory effort Auscultation: clear to auscultation bilaterally Cardio Rate: regular rate Rhythm: regular rhythm Heart Sounds: S1 normal and S2 normal GI Inspection: distended Palpation: soft Percussion: tympanic to percussion Auscultation: normoactive bowel sounds Other: suprapubic catheter in place, draining clear slightly dark yellow urine Neuro General: patient alert, patient awake and patient oriented x3 Extrem Other: protective boots on feet bilaterally Psych Mental Status: mental status grossly normal Affect: normal affect Attitude: cooperative Insight: insight good Judgment: judgment good Objective Last Vital Signs Temp 100.0 F H 02/22/21 16:22 Pulse 83 02/22/21 16:22 Resp 22 02/22/21 16:22 BP 148/80 H 02/22/21 16:22 Pulse Ox 95 02/22/21 16:22 Laboratory Results - last 24 hr 02/20/21 17:00 Stool Campylobacter PCR Negative Stool Salmonella PCR Negative Stool Shigella PCR Negative Shiga Toxin (PCR) Negative Objective Narrative Objective Narrative: ABDOMINAL SERIES (02/22/21): FINDINGS: Exam is somewhat limited by portable technique and patient immobility. The visualized portions of the lung bases are clear. No free air seen. There is dilatation of the stomach and colon. No small bowel dilatation is visible. The findings appear to have improved when compared with the previous exam.. Stool is seen throughout the colon. Stool is no longer present in the rectum CALCIFICATIONS: No radiopaque calcifications are visible. OSSEOUS STRUCTURES: Degenerative disc changes. OTHER FINDINGS: None. IMPRESSION: 1. Improvement in colonic distension. No small bowel distention or free air.
--- NOTE | 2021-02-22 16:57 | W.PM.PROGNOT ---
Date of Service Date of service: 02/22/21 Time of Service: 11:00 Assessment and Plan Assessment and plan (1) Constipation: Start date: 02/22/21 Start time: 17:23 Status: Acute Assessment and plan: Xray improving, Improvement in colonic distension. No small bowel distention or free air. Will do another BID SSE, with portable xray Qualifiers: Constipation type: unspecified constipation type Qualified Code(s): K59.00 - Constipation, unspecified (2) Decubitus skin ulcer: Start date: 02/22/21 Start time: 17:25 Status: Acute Assessment and plan: He has large decubiti as his ischial tuberosities. There is no active infection. Wound consult placed, Recommnded surgery for debridement and PT/OT and nutrition Possible surgery on Thursday He would benefit from ostomy in the future above case discussed with Dr. Olson Qualifiers: Pressure injury location: foot, unspecified location Pressure injury stage: unstageable Subjective Subjective Patient reports: no new complaints Interval history since last seen: Having improvement in BM's. Stooling large diarrhea, will continue bid SSE and abdominal xray in am. Exam Narrative Exam Narrative: Alert and oriented. Const General: cooperative and no acute distress HENMT Head: normal to inspection Ears: hearing grossly normal bilaterally Eyes General: appearance normal, both eyes and all related structures Neck Neck: normal visual inspection Lymphatic: no lymphadenopathy noted Chest Chest: normal inspection of the chest Resp Effort & Inspection: normal respiratory effort Auscultation: clear to auscultation bilaterally Cardio Rhythm: regular rhythm Heart Sounds: S1 normal and S2 normal GI Inspection: normal to inspection Palpation: no hepatosplenomegaly Objective Last Vital Signs Temp 37.8 C H 02/22/21 16:22 Pulse 83 02/22/21 16:22 Resp 22 02/22/21 16:22 BP 148/80 H 02/22/21 16:22 Pulse Ox 95 02/22/21 16:22 Laboratory Results - last 24 hr 02/20/21 17:00 Stool Campylobacter PCR Negative Stool Salmonella PCR Negative Stool Shigella PCR Negative Shiga Toxin (PCR) Negative
[2021-02-22] MEDS: Milk of Magnesia 30 ML CUP PO (17:59)
[2021-02-22] MEDS: Ascorbic Acid 500 MG TAB PO (20:49)
[2021-02-22] MEDS: Melatonin 3 MG TAB 6 MG PO (21:37)
[2021-02-22] MEDS: Mirtazapine 15 MG TAB 45 MG PO (21:38)
[2021-02-22] MEDS: cefTRIAXone 1 GM/50 ML BAG IVPB (21:39)
[2021-02-22] MEDS: Zolpidem 5 MG TAB PO (21:39)
[2021-02-22 22:35] VITALS: BP 142/75; PULSE 98; RESP 20; TEMP 37.3; O2SAT 95
[2021-02-23 06:55] LABS: Abs Immature Grans 0.07 10^3/uL (0.0-0.06); Absolute Basophil Count 0.03 10^3/uL (0.0-0.2); Absolute Eosinophil Count 0.15 10^3/uL (0.0-0.7); Absolute Lymphocyte Count 1.69 10^3/uL (1.2-3.4); Absolute Monocyte Count 0.68 10^3/uL (0.1-0.8); Absolute Neutrophil Count 5.88 10^3/uL (1.2-6.7); Basophils % 0.4; Eosinophils % 1.8; HCT 26.9 % (40.0-50.0); HGB 8.6 g/dL (13.5-17.5); Immature Grans % 0.8; Lymphocytes % 19.9; MCV 84.6 fL (80-95); MPV 9.9 fL (8.0-11.0); Neutrophils % 69.1; Nucleated RBC 0 %; Platelet Count 279 10^3/uL (130-400); RBC 3.18 10^6/uL (4.36-5.78); RDW 12.8 % (11.8-14.1); RDW-SD 39.2 fL
[2021-02-23 07:07] LABS: Anion Gap 7.1 mmol/L (3-11); BUN 15 mg/dL (7-18); CO2 27.9 mmol/L (21.0-32.0); CREATININE 0.8 mg/dL (0.70-1.30); Calcium 9.1 mg/dL (8.5-10.1); Chloride 105 mmol/L (98-107); Glucose 102 mg/dL (74-106); Magnesium 1.6 mg/dL (1.8-2.4); Sodium 140 mmol/L (136-145)
[2021-02-23 07:36] LABS: Diff Comment Diff Reviewed; Hypochromasia 1+; Polychromasia Present
[2021-02-23 07:51] VITALS: BP 131/81; PULSE 91; RESP 19; TEMP 36.4; O2SAT 95
[2021-02-23] MEDS: Midodrine 2.5 MG TAB 5 MG PO ×2 (08:58→20:13)
[2021-02-23] MEDS: Polyethylene Glycol 3350 17 GM PACKET PO ×2 (08:58→20:15)
[2021-02-23] MEDS: Protein Nutritional Supplement 16 GM 1 OUNCE PACKET PO ×3 (08:58→20:15)
[2021-02-23] MEDS: Lactulose 20 GM/30 ML CUP PO (08:58)
[2021-02-23] MEDS: Docusate Sodium 100 MG CAP PO ×2 (08:59→20:14)
[2021-02-23] MEDS: Multivitamin TAB 1 TAB PO (08:59)
[2021-02-23] MEDS: Baclofen 10 MG TAB 5 MG PO ×2 (08:59→15:27)
[2021-02-23] MEDS: Senna TAB 2 TAB PO ×2 (08:59→20:14)
[2021-02-23] MEDS: Zinc Sulfate 220 MG TAB PO (08:59)
[2021-02-23] MEDS: Acetaminophen 325 MG TAB 650 MG PO (08:59)
[2021-02-23] MEDS: Ascorbic Acid 500 MG TAB PO ×2 (08:59→20:15)
[2021-02-23] MEDS: busPIRone 5 MG TAB 10 MG PO ×3 (09:00→20:12)
[2021-02-23] MEDS: Apixaban 5 MG TAB PO ×2 (09:00→20:14)
[2021-02-23] MEDS: Lactobacillus Acidophilus CAP 1 CAP PO ×3 (09:00→20:14)
[2021-02-23] MEDS: MAGNESIUM SULFATE 4 GM/100 ML BAG IVPB (11:10)
[2021-02-23] MEDS: DULoxetine 20 MG CAP 40 MG PO (11:10)
[2021-02-23] MEDS: Pantoprazole 40 MG TABCR PO (11:10)
[2021-02-23] MEDS: Normal Saline Flush 10 ML SYR (11:20)
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
--- NOTE | 2021-02-23 15:34 | DI.RAD_ITS ---
EXAM: XR ABDOMEN FLAT UPRIGHT CLINICAL HISTORY: obsitpation. TECHNIQUE: 2D digital imaging was performed. COMPARISON: CR XR ABDOMEN FLAT UPRIGHT from 02/22/2021 FINDINGS: Visualized lung bases are clear. On the upright view there is no free air. No obvious bowel obstruc tion. Air is seen throughout small bowel loops and there also appears to be some air in the colon. Stomach appears slightly distended. IMPRESSION: DATA REPOSITORY: RADIATION DOSE DELIVERED:
[2021-02-23 16:07] VITALS: BP 138/82; PULSE 86; RESP 18; TEMP 37.8; O2SAT 97
--- NOTE | 2021-02-23 16:08 | DI.VRAD_ITS ---
PROCEDURE INFORMATION: Exam: XR Abdomen Exam date and time: 02/23/2021 12:00 AM Age: 55 years old Clinical indication: Constipation; Additional info: Done as a portable. TECHNIQUE: Imaging protocol: XR of the abdomen. Views: 2 Views. Upright and supine views. Other technique: Portable exam. COMPARISON: CR XR ABDOMEN FLAT UPRIGHT 02/22/2021 3:11 PM FINDINGS: Gastrointestinal tract: Gas is noted throughout the bowel with minimal, slightly diffuse distention. No definite evidence for free air. Moderate fecal retention pattern noted. Intraperitoneal space: See Gastrointestinal tract finding. Bones/joints: Unremarkable for age. IMPRESSION: Mild slightly diffuse bowel distention with moderate fecal retention pattern. This could be consistent with constipation in the appropriate clinical setting. Dictated and Authenticated by: Ami Kaiser MD. Ordering:DONNA Del Rio MD
--- NOTE | 2021-02-23 16:13 | W.PM.PROGNOT ---
Date of Service Date of service: 02/23/21 Time of Service: 16:13 Assessment and Plan Assessment and plan (1) Decubitus skin ulcer: Status: Acute Assessment and plan: Bilateral ischial tuberosity ulcers collagenase ordered to base of wounds for daily dressing changes; will likely take to OR on Thursday for further debridement offloading/rotation q2hrs/prn rotating bed ordered Qualifiers: Laterality: unspecified laterality Pressure injury location: buttock Pressure injury stage: unstageable Qualified Code(s): L89.300 - Pressure ulcer of unspecified buttock, unstageable (2) Constipation: Status: Acute Assessment and plan: Fecal impaction appears to be resolved Consider adding psyllium to bowel regimen; may also need daily rectal stimulation for aid in evacuation Qualifiers: Constipation type: unspecified constipation type Qualified Code(s): K59.00 - Constipation, unspecified Subjective Subjective Patient reports: tolerating a regular diet, bowel movement and diarrhea; denies nausea and vomiting Interval history since last seen: Pt is feeling okay. He is feeling like he should move expeditiously toward proceeding to an colostomy. I explained that fecal diversion is a possibility in the future after we have exhausted wound care efforts, and optimizing his bowel regimen. We have not reached that point. The wound care nurse and I emphasized that decreasing continual pressure to the area is the paramount force in helping these wounds to heal. I admitted that I may have broached the subject of a colostomy prematurely. 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 This area was curretted. The central and lateral portions of the wound felt soft with thick slough superfically. When curretted, skin with follicles could be visualized; RIGHT: This wound seems mostly superficial with thick slough and no areas of gross necrosis Full body images: 1. Left buttock: ischial pressure ulcer with deeper breakdown at the medial aspect 2. Right buttock: superficial ischial pressure ulcer with thick slough Neuro General: patient alert, patient awake and patient oriented x3 Cognition: normal cognition Speech: speech normal Extrem Other: protective boots to LE bilaterally Psych Appearance: grossly normal Attitude: cooperative Thought Process: normal Insight: insight good Judgment: judgment good Objective Last Vital Signs Temp 100.0 F H 02/23/21 16:07 Pulse 86 02/23/21 16:07 Resp 18 02/23/21 16:07 BP 138/82 02/23/21 16:07 Pulse Ox 97 02/23/21 16:07 Laboratory Results - last 24 hr 02/23/21 02/23/21 06:10 06:10 WBC 8.50 RBC 3.18 L Hgb 8.6 L Hct 26.9 L MCV 84.6 MCH 27.0 MCHC 32.0 RDW 12.8 Plt Count 279 MPV 9.9 Immature Gran % 0.8 Neutrophils % 69.1 Lymphocytes % 19.9 Monocytes % 8.0 Eosinophils % 1.8 Basophils % 0.4 Nucleated RBC % 0 Absolute Neutrophils 5.88 Absolute Lymphocytes 1.69 Absolute Monocytes 0.68 Absolute Eosinophils 0.15 Absolute Basophils 0.03 RBC Morphology See below Polychromasia Present Hypochromasia 1+ Sodium 140 Potassium 4.0 Chloride 105 Carbon Dioxide 27.9 Anion Gap 7.1 BUN 15 D Creatinine 0.8 Estimated GFR/1.73 m2 >= 60.00 Glucose 102 Calcium 9.1 Magnesium 1.6 L Objective Narrative Objective Narrative: Abdominal Series (02/23/21): FINDINGS: Gastrointestinal tract: Gas is noted throughout the bowel with minimal, slightly diffuse distention. No definite evidence for free air. Moderate fecal retention pattern noted. Intraperitoneal space: See Gastrointestinal tract finding. Bones/joints: Unremarkable for age. IMPRESSION: Mild slightly diffuse bowel distention with moderate fecal retention pattern. This could be consistent with constipation in the appropriate clinical setting.
[2021-02-23] MEDS: Collagenase 30 GM TUBE TP (17:05)
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
[2021-02-23] MEDS: cefTRIAXone 1 GM/50 ML BAG IVPB (20:19)
[2021-02-23] MEDS: Normal Saline Flush 10 ML SYR IVP (20:21)
[2021-02-23] MEDS: Melatonin 3 MG TAB 6 MG PO (21:42)
[2021-02-23] MEDS: Zolpidem 5 MG TAB PO (21:42)
[2021-02-23] MEDS: Mirtazapine 15 MG TAB PO (21:42)
[2021-02-23 22:16] VITALS: BP 147/85; PULSE 86; RESP 18; TEMP 37.2; O2SAT 96
[2021-02-23 23:36] VITALS: BP 148/89; PULSE 86; RESP 17; TEMP 37.3; O2SAT 96
--- NOTE | 2021-02-24 | DI.CT_ITS ---
EXAM: CT ABDOMEN PELVIS WO CLINICAL HISTORY: concern for free air under diaphragm/perforation. TECHNIQUE: Imaging Protocol: Axial computed tomography images with coronal and sagittal reformatted images were created and reviewed CONTRAST MATERIAL: Intravenous: none Oral: None COMPARISON: CT CT ABDOMEN PELVIS W from 02/20/2021 FINDINGS: VISUALIZED LUNG BASES: Mild increasing infiltrate in the left lung base posterior basal segment left lower lobe.. ABDOMEN: There is air and fluid-filled small and large bowel loops throughout the abdomen and pelvis. There i s no free air evident, as suspected from the supine plain film. LIVER: There are no obvious focal hepatic lesions evident of this noninfused study. GALLBLADDER/BILIARY: No obvious gallbladder pathology. CBD is not dilated. PANCREAS: No evidence of pancreatic mass nor dilatation of the pancreatic duct. SPLEEN: Spleen is not enlarged. No obvious intrasplenic lesions. ADRENALS: There are no significant adrenal masses. KIDNEYS:No cysts evident. No solid renal masses. No calculi nor hydronephrosis. . ABDOMINAL AORTA: Abdominal aorta is not enlarged. LYMPH NODES: There is no retroperitoneal nor paraaortic adenopathy. ABDOMINAL WALL/GI: No evidence of significant anterior abdominal wall hernia. Suprapubic catheter no paris in the urinary bladder. PELVIS: There is symmetrical streaking soft tissues anterior to the lower sacrum and coccyx with some overlyi ng subcutaneous soft tissue edema. LYMPH NODES: There is no intrapelvic nor inguinal adenopathy. GI: No evidence of appendicitis.No evidence of sigmoid diverticulitis.Rectal wall is thickened. This is relatively circumferential, either inflammatory a cannot rule out neoplastic. There is also stre aking in the retrorectal presacral tissues noted. URINARY BLADDER: Suprapubic catheter in place. REPRODUCTIVE: Prostate not enlarged. OSSEOUS: No significant osseous lesions. Some dystrophic calcifications seen around the right hip. IMPRESSION: 1. Air-filled small and large bowel loops. No free air. 2. Circumferential rectal wall thickening and there is also soft tissue stranding in the media presac ral tissue without evidence of bony destruction. There is also overlying soft tissue subcutaneous st randing over the coccyx. No evidence of obvious osteomyelitis. 3. There is suprapubic catheter in place within the urinary bladder. RADIATION DOSE DELIVERED: 1,057.71mGy.cm Total DLP DATA REPOSITORY: All CT scans at this facility are submitted to the National Radiology Data Registry (NRDR) Dose Index Registry (DIR) with the [employer] (A[employer]). RADIATION OPTIMIZATION: All CT scans at this facility use at least one of these dose optimization te chniques: automated exposure control; mA and/or kV adjustment per patient size (includes targeted exa ms where dose is matched to clinical indication); or iterative reconstruction.
[2021-02-24 07:26] LABS: Abs Immature Grans 0.12 10^3/uL (0.0-0.06); Absolute Basophil Count 0.04 10^3/uL (0.0-0.2); Absolute Eosinophil Count 0.28 10^3/uL (0.0-0.7); Absolute Lymphocyte Count 1.74 10^3/uL (1.2-3.4); Absolute Monocyte Count 0.73 10^3/uL (0.1-0.8); Absolute Neutrophil Count 6.13 10^3/uL (1.2-6.7); Basophils % 0.4; Eosinophils % 3.1; HCT 29.3 % (40.0-50.0); HGB 9.2 g/dL (13.5-17.5); Immature Grans % 1.3; Lymphocytes % 19.2; MCH 27.2 pg (27.0-33.0); MCHC 31.4 % (32.0-36.0); MCV 86.7 fL (80-95); MPV 9.7 fL (8.0-11.0); Monocytes % 8.1; Neutrophils % 67.9; Nucleated RBC 0 %; Platelet Count 348 10^3/uL (130-400); RBC 3.38 10^6/uL (4.36-5.78); RDW 12.9 % (11.8-14.1); RDW-SD 40.7 fL; WBC 9.04 10^3/uL (4.4-10.8)
[2021-02-24 07:34] LABS: Anion Gap 7.1 mmol/L (3-11); BUN 18 mg/dL (7-18); CO2 28.9 mmol/L (21.0-32.0); CREATININE 0.8 mg/dL (0.70-1.30); Calcium 9.1 mg/dL (8.5-10.1); Chloride 104 mmol/L (98-107); Glucose 102 mg/dL (74-106); Potassium 4.2 mmol/L (3.5-5.1); Sodium 140 mmol/L (136-145)
[2021-02-24 08:14] VITALS: BP 152/84; PULSE 85; RESP 18; TEMP 36.7; O2SAT 97
--- NOTE | 2021-02-24 08:47 | PTTR_ITS ---
Date of service: 02/23/21 Time of Service: 12:50 PT Notes Visit Reasons: OBSTIPATION Inpatient Physical Therapy Treatment Note [facility] Date: 02/23/21 SUBJECTIVE: Bruce states that he is doing ok. He offers no complaints to me today. OBJECTIVE: [] THEREX: performed P/AA/AROM t/o entire bilateral UE, including individual digits, wrist, elbow and shld t/o all planes of motion. Worked on stabilization ex of shld, elbow and director translation strengthening on right. Resistance was provided manually for biceps, shld abd, IR/ER and punch ups. ASSESSMENT: tolerated session well. Did have some pain in digits with ROM left greater than right. PLAN: will continue following PT POC. TREATMENT CODE/TIME: 25 min. [id number]
[2021-02-24] MEDS: Lactulose 20 GM/30 ML CUP 30 GM PO (08:51)
[2021-02-24] MEDS: Baclofen 10 MG TAB 5 MG PO (08:51)
[2021-02-24] MEDS: busPIRone 5 MG TAB 10 MG PO ×3 (08:52→20:50)
[2021-02-24] MEDS: Lactobacillus Acidophilus CAP 1 CAP PO ×3 (08:52→20:51)
[2021-02-24] MEDS: Protein Nutritional Supplement 16 GM 1 OUNCE PACKET PO ×3 (08:52→20:51)
[2021-02-24] MEDS: Midodrine 2.5 MG TAB 5 MG PO ×2 (08:52→20:51)
[2021-02-24] MEDS: Polyethylene Glycol 3350 17 GM PACKET PO ×2 (08:52→20:51)
[2021-02-24] MEDS: Magnesium Citrate 300 ML BTL PO (08:52)
[2021-02-24] MEDS: Docusate Sodium 100 MG CAP PO ×2 (08:52→20:51)
[2021-02-24] MEDS: Apixaban 5 MG TAB PO (08:53)
[2021-02-24] MEDS: Ascorbic Acid 500 MG TAB PO ×2 (08:53→20:51)
[2021-02-24] MEDS: Pantoprazole 40 MG TABCR PO (08:53)
[2021-02-24] MEDS: Normal Saline Flush 10 ML SYR IVP (08:53)
[2021-02-24] MEDS: Zinc Sulfate 220 MG TAB PO (08:53)
[2021-02-24] MEDS: DULoxetine 20 MG CAP PO (08:53)
[2021-02-24] MEDS: Multivitamin TAB 1 TAB PO (08:53)
[2021-02-24] MEDS: Acetaminophen 325 MG TAB 650 MG PO (08:53)
[2021-02-24] MEDS: Senna TAB 2 TAB PO (08:53)
[2021-02-24] MEDS: Metoclopramide 10 MG/2 ML VIAL 5 MG IVP (08:54)
[2021-02-24] MEDS: levoFLOXacin 500 MG, levoFLOXacin 250 MG 750 MG PO (11:12)
--- NOTE | 2021-02-24 11:19 | PT.INTREAT ---
PT Notes Visit Reasons: OBSTIPATION Inpatient Physical Therapy Treatment Note [facility] Date: 02/24/21 SUBJECTIVE: Bruce states that he is headed in for debridement of wound tomorrow. He is hoping that it will begin to heal up at that point. OBJECTIVE: [] THEREX: see flowsheet for specific details. I performed PROM of digits and wrist, as well as strength/stabilization ex of elbow, shld and scap. ASSESSMENT: tolerated session well. He was able to offer more resistance today. PLAN: continue to progress following PT POC. TREATMENT CODE/TIME: 40 min [id number].
--- NOTE | 2021-02-24 12:28 | W.PM.PROGNOT ---
Date of Service Date of service: 02/24/21 Time of Service: 12:29 Assessment and Plan Assessment and plan (1) UTI (urinary tract infection): Start date: 02/24/21 Start time: 12:48 Status: Acute Assessment and plan: Switched to oral levaquin for 7 days Cultures pansensitive he received 3 days of ceftriaxone (2) Constipation: Start date: 02/24/21 Start time: 13:00 Status: Acute Assessment and plan: Xray yesterday consistent with constipation Did repeat two more enemas, added, reglan with oral mag citrate and will repeat xray at 1500 rectal stimulation TID Qualifiers: Constipation type: unspecified constipation type Qualified Code(s): K59.00 - Constipation, unspecified (3) Decubitus skin ulcer: Start date: 02/24/21 Start time: 13:01 Status: Acute Assessment and plan: He has large decubiti ah his ischial tuberosities.Bilateral sides Possible surgery for tomorrow, apixaban held today in setting of possible surgery for tomorrow Tissue is necrotic on left side and softening on right side, santyl being used Qualifiers: Laterality: unspecified laterality Pressure injury location: buttock Pressure injury stage: unstageable Qualified Code(s): L89.300 - Pressure ulcer of unspecified buttock, unstageable (4) Neurogenic bladder: Start date: 02/24/21 Start time: 13:02 Status: Chronic Assessment and plan: Due to c6,c7 fracture quadrapalegic suprapubic catheter (5) Quadriplegia: Start date: 02/24/21 Start time: 13:03 Status: Chronic Assessment and plan: from falling on ivan purposeful movements to arms (6) Major depressive disorder: Start date: 02/24/21 Start time: 13:03 Status: Chronic Assessment and plan: he is grieving his life situation and having severe depression. Started on cymbalta 20 , decreased mirtazepam to 30. (7) DVT prophylaxis: Start date: 02/24/21 Start time: 13:03 Status: Acute Assessment and plan: apixaban, holding today for possible OR tomorrow (8) Discharge planning issues: Start date: 02/24/21 Start time: 13:04 Status: Acute Assessment and plan: He will have to return to [facility] on discharge though he does not want to. 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 He would like to ultimately be at home, he states family will be able to take care of him. above case discussed with Dr. Murillo Subjective Subjective Interval history since last seen: [facility] arrived today for patient. Xray yesterday revealing mild diffuse bowel distension with moderate fecal retention pattern. Abd distended. Rectal stimulation order placed. mag citrate ordered with reglan. At this point patient is having watery clear mucus with gas will repeat imaging this afternoon. Possible surgery tommorrow. Exam Narrative Exam Narrative: Alert and oriented. Const General: cooperative and no acute distress HENMT Head: normal to inspection Ears: hearing grossly normal bilaterally Eyes General: appearance normal, both eyes and all related structures Neck Neck: normal visual inspection Lymphatic: no lymphadenopathy noted Chest Chest: normal inspection of the chest Resp Effort & Inspection: normal respiratory effort Auscultation: clear to auscultation bilaterally Cardio Rhythm: regular rhythm Heart Sounds: S1 normal and S2 normal GI Inspection: normal to inspection Palpation: no hepatosplenomegaly Neuro General: patient alert, patient awake and patient oriented x3 Cranial Nerves: PERRL and no nystagmus Cognition: normal cognition Other: quadrapeligic with some purposeful movement of upper extremities unable to move hands. Extrem General: abnormal ROM Objective Last Vital Signs Temp 36.7 C 02/24/21 08:14 Pulse 85 02/24/21 08:14 Resp 18 02/24/21 08:14 BP 152/84 H 02/24/21 08:14 Pulse Ox 97 02/24/21 08:14 Laboratory Results - last 24 hr 02/24/21 02/24/21 06:36 06:36 WBC 9.04 RBC 3.38 L Hgb 9.2 L Hct 29.3 L MCV 86.7 MCH 27.2 MCHC 31.4 L RDW 12.9 Plt Count 348 MPV 9.7 Immature Gran % 1.3 Neutrophils % 67.9 Lymphocytes % 19.2 Monocytes % 8.1 Eosinophils % 3.1 Basophils % 0.4 Nucleated RBC % 0 Absolute Neutrophils 6.13 Absolute Lymphocytes 1.74 Absolute Monocytes 0.73 Absolute Eosinophils 0.28 Absolute Basophils 0.04 Sodium 140 Potassium 4.2 Chloride 104 Carbon Dioxide 28.9 Anion Gap 7.1 BUN 18 Creatinine 0.8 Estimated GFR/1.73 m2 >= 60.00 Glucose 102 Calcium 9.1 Magnesium 2.0
[2021-02-24] MEDS: Collagenase 30 GM TUBE TP (14:03)
--- NOTE | 2021-02-24 15:00 | DI.RAD_ITS ---
EXAM: XR ABDOMEN FLAT PLATE CLINICAL HISTORY: consitpation. TECHNIQUE: 2D digital imaging was performed. COMPARISON: No exams were available for comparison FINDINGS: Portable supine views of the abdomen reveal multiple air-fluid small and large bowel loops. Subtle s uggestion of possible free air on the supine view. Recommend upright image. Is also air-gas in soft tissues lateral to the right side of the pelvis. IMPRESSION: Multiple air-filled bowel loops throughout the abdomen and pelvis. Possible free air in addition to air within the soft tissues lateral to the right pelvis. Recommend upright or decubitus images if clinically possible. Report called by myself to the [facility] 02/24/2021 at 5:10 p.m.. DATA REPOSITORY: RADIATION DOSE DELIVERED:
[2021-02-24 15:45] VITALS: BP 160/81; PULSE 77; RESP 18; TEMP 36.2; O2SAT 97
--- NOTE | 2021-02-24 15:49 | W.PM.PROGNOT ---
Date of Service Date of service: 02/24/21 Time of Service: 16:10 Assessment and Plan Assessment and plan (1) Decubitus skin ulcer: Status: Acute Assessment and plan: Bilateral ischial tuberosity ulcers collagenase ordered to base of wounds for daily dressing changes; will take to OR on Thursday for further debridement Pt discussed with anesthesia regarding DVT, and spinal cord injury NPO past midnight offloading/rotation [id number]/prn rotating bed in place Qualifiers: Pressure injury location: buttock Pressure injury stage: unstageable Laterality: unspecified laterality Qualified Code(s): L89.300 - Pressure ulcer of unspecified buttock, unstageable (2) Constipation: Status: Acute Assessment and plan: Fecal impaction appears to be resolved Consider adding psyllium to bowel regimen Agree with rectal stimulation for aid in evacuation Consider simethicone for gaseous distention Qualifiers: Constipation type: unspecified constipation type Qualified Code(s): K59.00 - Constipation, unspecified Subjective Subjective Patient reports: tolerating a regular diet and flatus Interval history since last seen: The patient is feeling okay today. A new bed was placed that will better help support and rotate his pressure points. He was given more laxatives, and nursing is reporting more mucoid-like output, without stool. The patient feels ready to proceed to surgery tomorrow. Nursing reports the wounds have not changed significantly with collagenase treatment, and are looking more devitalized. Exam Const General: cooperative Nutritional Appearance: average body habitus Orientation: alert, awake and oriented x3 Resp Effort & Inspection: normal respiratory effort and able to speak in complete sentences GI Inspection: distended Palpation: soft Percussion: tympanic to percussion Psych Mental Status: mental status grossly normal Speech and Movement: speech and movement normal Mood: dysthymic mood Affect: normal affect Attitude: cooperative Thought Process: normal Thought Content: normal Insight: insight good Judgment: judgment good Objective Last Vital Signs Temp 97.2 F L 02/24/21 15:45 Pulse 77 02/24/21 15:45 Resp 18 02/24/21 15:45 BP 160/81 H 02/24/21 15:45 Pulse Ox 97 02/24/21 15:45 Laboratory Results - last 24 hr 02/24/21 02/24/21 06:36 06:36 WBC 9.04 RBC 3.38 L Hgb 9.2 L Hct 29.3 L MCV 86.7 MCH 27.2 MCHC 31.4 L RDW 12.9 Plt Count 348 MPV 9.7 Immature Gran % 1.3 Neutrophils % 67.9 Lymphocytes % 19.2 Monocytes % 8.1 Eosinophils % 3.1 Basophils % 0.4 Nucleated RBC % 0 Absolute Neutrophils 6.13 Absolute Lymphocytes 1.74 Absolute Monocytes 0.73 Absolute Eosinophils 0.28 Absolute Basophils 0.04 Sodium 140 Potassium 4.2 Chloride 104 Carbon Dioxide 28.9 Anion Gap 7.1 BUN 18 Creatinine 0.8 Estimated GFR/1.73 m2 >= 60.00 Glucose 102 Calcium 9.1 Magnesium 2.0 Reviewed Pertinent PMH: Yes Objective Narrative Objective Narrative: AXR from yesterday reviewed
--- NOTE | 2021-02-24 16:12 | PDOC.CMPRO ---
- If Service Date Differs Date of service: 02/24/21 Time of Service: 16:12 Care Management Progress Note S/O: Favio was sitting up in bed when CM met with him. The specialty wound bed arrived today, and he is now using it. He is very happy with the bed. CM explained that this is a rental that is here through this admission for him, and CM will advocate that the facility that he return to will order a similar bed. He may be going to the OR tomorrow to remove the necrotic tissue on his wounds. CM will continue to follow. A: Favio is a 55 year old man admitted on 02/20/21 with constipation P: Favio will likely return to [facility] when medically ready for discharge. He will continue to seek placement at another facility; referrals have been sent. He will follow up with his PCP and discharge plan and transport via facility W/C van.
--- NOTE | 2021-02-24 17:02 | DI.VRAD_ITS ---
PROCEDURE INFORMATION: Exam: XR Abdomen Exam date and time: 02/24/2021 12:31 PM Age: 55 years old Clinical indication: Constipation TECHNIQUE: Imaging protocol: XR of the abdomen. Views: Frontal supine view of the abdomen. 1 View. COMPARISON: CR XR ABDOMEN FLAT UPRIGHT 02/23/2021 3:14 PM FINDINGS: Gastrointestinal tract: There is gaseous distention of large and small bowel. No frankly dilated loops of bowel are identified. Bones/joints: Chronic degenerative changes of the spine are present. IMPRESSION: Gaseous distention of large and small bowel. Dictated and Authenticated by: Yoel Soto MD. Ordering:DONNA Del Rio MD
[2021-02-24 17:17] VITALS: BP 169/100; PULSE 76; RESP 20; TEMP 36.1; O2SAT 98
[2021-02-24 17:45] VITALS: PULSE 85
--- NOTE | 2021-02-24 18:19 | DI.VRAD_ITS ---
PROCEDURE INFORMATION: Exam: CT Abdomen And Pelvis Without Contrast Exam date and time: 02/24/2021 5:22 PM Age: 55 years old Clinical indication: Other: Concern for free air under diaphragm/perforation; Prior surgery TECHNIQUE: Imaging protocol: Computed tomography of the abdomen and pelvis without contrast. Radiation optimization: All CT scans at this facility use at least one of these dose optimization techniques: automated exposure control; mA and/or kV adjustment per patient size (includes targeted exams where dose is matched to clinical indication); or iterative reconstruction. COMPARISON: CT ABDOMEN PELVIS W 02/20/2021 6:48 PM FINDINGS: Tubes, catheters and devices: A suprapubic catheter is present within the urinary bladder. Lungs: Review of the lung windows shows minimal bibasilar dependent subsegmental atelectasis. No segmental or lobar consolidation is seen. Pleural spaces: No pneumothorax is noted. Liver: Normal. No mass. Gallbladder and bile ducts: Normal. No calcified stones. No ductal dilation. Pancreas: Normal. No ductal dilation. Spleen: Normal. No splenomegaly. Adrenal glands: Normal. No mass. Kidneys and ureters: Normal. No hydronephrosis. Stomach and bowel: There is diffuse gaseous distention of large and small bowel. There is a large amount of stool within the colon. The rectal wall appears thickened. Appendix: No evidence of appendicitis. Intraperitoneal space: There is no evidence of pneumoperitoneum or intramural gas. Vasculature: Unremarkable. No abdominal aortic aneurysm. Lymph nodes: Unremarkable. No enlarged lymph nodes. Urinary bladder: The urinary bladder is not distended. Reproductive: Unremarkable as visualized. Bones/joints: Chronic degenerative changes of the spine are present. Soft tissues: Unremarkable. IMPRESSION: 1. No evidence of pneumoperitoneum. 2. Gaseous distention of large and small bowel with large amount of retained stool in the colon. 3. Diffuse thickening of the rectal wall. This may be inflammatory or neoplastic in origin. 4. Suprapubic Beck catheter within the urinary bladder. Dictated and Authenticated by: Yoel Soto MD. Ordering:ELA Newton MD
[2021-02-24] MEDS: Normal Saline 1,000 ML 125 ML IV (18:51)
[2021-02-24] MEDS: Psyllium PKT 1 EACH PO (20:51)
[2021-02-24] MEDS: Mirtazapine 15 MG TAB 30 MG PO (21:42)
[2021-02-24] MEDS: Zolpidem 5 MG TAB PO (21:42)
[2021-02-24] MEDS: Melatonin 3 MG TAB 6 MG PO (21:42)
[2021-02-24 23:10] VITALS: PULSE 82
[2021-02-25] VITALS (8 sets, daily range): BP systolic 107–163; BP diastolic 66–91; PULSE 71–84; RESP 17–24; TEMP 35.7–37.2; O2SAT 94–99; BMI 26.9
[2021-02-25] MEDS: Normal Saline 1,000 ML 125 ML IV ×3 (02:19→17:55)
[2021-02-25] MEDS: Zinc Sulfate 220 MG TAB PO (07:35)
[2021-02-25] MEDS: Lactobacillus Acidophilus CAP 1 CAP PO ×3 (07:35→20:45)
[2021-02-25] MEDS: Midodrine 2.5 MG TAB 5 MG PO ×2 (07:35→20:45)
[2021-02-25] MEDS: DULoxetine 20 MG CAP PO (07:36)
[2021-02-25] MEDS: busPIRone 5 MG TAB 10 MG PO ×3 (07:36→20:44)
[2021-02-25] MEDS: Pantoprazole 40 MG TABCR PO (07:36)
--- NOTE | 2021-02-25 07:48 | ANES.PREOP_ITS ---
Anesthesia Assessment and Plan Anesthesia History Personal History: No History of Anesthesia Complications Family History: No Family History of Anesthesia Complications Exercise Tolerance Exercise Tolerance: Unknown (states prior to injury was up and about and all to climb stairs without issue. ) Cardiac & Pulmonary Exam Cardiac Exam: Normal S1/S2 Heart Sounds Pulmonary Exam: Clear Bilateral Breath Sounds Airway Exam Known Difficult Airway: No Previous Airway Comments:: Previous intubation at [facility] [place] with 2 hand mask ventilation with 100 mm OPA, cmac d blade grade 1. Mallampati Class: 3 Mouth Opening: Narrow (< 3cm) Thyromental Distance: Greater than 3 cm Neck Range of Motion: Limited ROM and History of Cervical Fusion Neck Circumference: Normal Teeth Condition: Normal Dentition Airway Comments: multiple missing teeth. ASA Classification ASA Score: ASA 3 ASA Emergency: No NPO Status NPO Status: NPO Clears >2 hours, Solids >8 hours Anesthesia Plan Anesthesia Technique: General Anesthesia Airway Planned: Natural Airway Monitors Used: Standard Monitors Additional Preop Comments:: Per [facility] [place] preop: very anxious, history of alcohol abuse and cannabis dependence. sustained C6-7 anterolisthesis associated with spinal canal stenosis. s/p cervical fusions C4-T2. Peg tube placed for dysphagia (no longer has this). Pt states that he is mostly insensate from mid chest down. discussed plan of light sedation vs. general anesthesia. discussed risk, benefits, and alternatives of GAETT vs sedation. Imaging and Studies Imaging and Studies EKG Summary 02/20: sinus rhythm. General Info Date of Service This is a Shared Provider Document. All providers who document on this will be required to sign document once completed. Please Communicate with Team Date Performed: 02/25/21 Height: 6 ft 2 in Weight: 95 kg Body Mass Index (BMI): 26.9 Surgical Procedure: Operation Date: 02/25/21 10:25 Proposed Procedures Side Surgeon uma Calderon MD Vital Signs and Lab Results Vital Signs Most Recent Vital Signs in EMR: Most Recent Vital Signs Temp Pulse Resp BP Pulse Ox 36.4 C L 72 18 137/91 H 98 02/25/21 07:24 02/25/21 07:24 02/25/21 07:24 02/25/21 07:24 02/25/21 07:24 Point of Care Results Nursing Point of Care Results: No Data to Display Lab Results Result Diagrams: 02/24/21 06:36 02/24/21 06:36 Blood Type / Crossmatch: Patient ABO/Rh AB Positive 10/26/20 20:10/26/20 Antibody Screen Negative 10/26/20 20:25 10/26/20 Complete Blood Count: White Blood Count 9.04 10^3/uL (4.4-10.8) 02/24/21 06:36 02/24/21 Red Blood Count 3.38 10^6/uL (4.36-5.78) L 02/24/21 06:36 02/24/21 Hemoglobin 9.2 g/dL (13.5-17.5) L 02/24/21 06:36 02/24/21 Hematocrit 29.3 % (40.0-50.0) L 02/24/21 06:36 02/24/21 Platelet Count 348 10^3/uL (130-400) 02/24/21 06:36 02/24/21 Complete Metabolic Panel: Sodium Level 140 mmol/L (136-145) 02/24/21 06:36 02/24/21 Potassium Level 4.2 mmol/L (3.5-5.1) 02/24/21 06:36 02/24/21 Chloride Level 104 mmol/L (98-107) 02/24/21 06:36 02/24/21 Carbon Dioxide Level 28.9 mmol/L (21.0-32.0) 02/24/21 06:36 02/24/21 Blood Urea Nitrogen 18 mg/dL (7-18) 02/24/21 06:36 02/24/21 Creatinine 0.8 mg/dL (0.70-1.30) 02/24/21 06:36 02/24/21 Magnesium Level 2.0 mg/dL (1.8-2.4) 02/24/21 06:36 02/24/21 Calcium Level 9.1 mg/dL (8.5-10.1) 02/24/21 06:36 02/24/21 Albumin 2.5 g/dL (3.4-5.0) L 02/20/21 17:20 02/20/21 Glucose Level 102 mg/dL (74-106) 02/24/21 06:36 02/24/21 C-Reactive Protein 19.71 mg/dL (0.0-0.3) H 02/20/21 17:20 02/20/21 Liver Function Panel: Alanine Aminotransferase (ALT/SGPT) 33 U/L (16-63) 02/20/21 17:20 02/20/21 Aspartate Amino Transf (AST/SGOT) 11 U/L (15-37) L 02/20/21 17:20 02/20/21 Coagulation Panel: INR International Normalized Ratio 1.3 (0.9-1.1) H 10/26/20 20:25 Prothrombin Time 12.7 sec (9.3-11.0) H 10/26/20 20:25 10/26/20 Activated Partial Thromboplast Time 24.5 sec (21.0-27.5) 10/26/20 20:25 10/26/20 Cardiac Panel: Troponin I < 0.05 ng/mL (<0.06) 10/26/20 20:25 10/26/20 Arterial Blood Gas: No Data to Display Venous Blood Gas: No Data to Display Pancreas Panel: Lipase 225 U/L (73-393) 02/20/21 17:20 02/20/21 Thyroid Panel: Thyroid Stimulating Hormone (TSH) 2.59 uIU/mL (0.358-3.74) 06/22/18 08:08 06/22/18 Infectious Disease: Coronavirus (COVID-19)(PCR) Negative (Negative) 02/20/21 20:17 02/20/21 Coronavirus 2019 Source Nasal/nares 02/20/21 20:17 02/20/21 HIV (1&2) Ag and Ab, 4th Generation Negative (NEGAT) 06/22/18 08:08 06/22/18 Hepatitis C Antibody Negative (NEGAT) 06/22/18 08:08 06/22/18 Blood Cultures: Blood Culture Toxicology Panel: Ethyl Alcohol Level 163.2 mg/dL (<3) 10/26/20 20:25 10/26/20 Urine Amphetamines Screen Negative (Negative) 10/26/20 21:15 10/26/20 Urine Benzodiazepines Screen Negative (Negative) 10/26/20 21:15 10/26/20 Urine Barbiturates Screen Negative (Negative) 10/26/20 21:15 12/25/20 Urine Cocaine Screen Negative (Negative) 10/26/20 21:15 10/26/20 Urine Methadone Screen Negative (Negative) 10/26/20 21:15 10/26/20 Urine Opiates Screen Negative (Negative) 10/26/20 21:15 10/26/20 Ur Tricyclic Antidepressants Screen Negative (Negative) 10/26/20 21:15 10/26/20 Ur Tetrahydrocannabinol (THC) Scrn Positive (Negative) A 10/26/20 21:15 10/26/20 Panel: No Data to Display [facility] Medical History (Updated 02/23/21 @ 16:54 by Wale Calderon MD) Acute embolism and thrombosis of deep vein of right lower extremity Anxiety disorder C. difficile colitis Dislocation of C6/C7 cervical vertebrae Fall down embankment Fusion of spine Hypotension Major depressive disorder Neurogenic bladder Quadriplegia Social History Smoking/Tobacco Use Status: Never Smoking risk assessment performed?: Yes Alcohol Intake: current Alcohol Intake frequency: a few times a week Drug use: Occasionally Substance use type: marijuana Do you feel safe at home: Yes Do you feel safe in your relationship?: Yes Meds Allergies and Home Medications Allergies Allergy/AdvReac Type Severity Reaction Status Date / Time No Known Allergies Allergy Unverified 11/26/18 03:46 Current Visit Medication Generic Name Dose Route Start Last Admin Trade Name Freq PRN Reason Stop Dose Admin Acetaminophen 650 mg 02/20/21 21:44 02/24/21 08:53 Acetaminophen 325 Mg Tab PO 650 mg Q4H PRN PRN Administration Acidophilus/Pectin 1 cap 02/21/21 08:30 02/25/21 07:35 Lactobacillus Acidophilus Cap PO 1 cap TID ALDEN Administration Albuterol Sulfate 0 puff 02/21/21 07:45 Albuterol Hfa 6.7 Gm 200 Puff Inh IH Q4H PRN PRN Apixaban 5 mg 02/21/21 08:30 02/24/21 08:53 Apixaban 5 Mg Tab PO 5 mg BID ALDEN Administration Ascorbic Acid 500 mg 02/22/21 20:00 02/24/21 20:51 Ascorbic Acid 500 Mg Tab PO 500 mg BID ALDEN Administration Baclofen 5 mg 02/21/21 07:45 02/24/21 08:51 Baclofen 10 Mg Tab PO 5 mg Q6H PRN PRN Administration Bisacodyl 10 mg 02/21/21 07:45 Bisacod[address] DAILY PRN PRN Buspirone HCl 10 mg 02/21/21 08:30 02/25/21 07:36 Buspirone 5 Mg Tab PO 10 mg TID ALDEN Administration Collagenase 1 gm 02/23/21 18:00 02/24/21 14:03 Collagenase 30 Gm Tube TP 1 applic DAILY ALDEN Administration Diclofenac Sodium 0 gm 02/21/21 07:45 Diclofenac 1% Gel 100 Gm Tube TP Q6H PRN PRN Dimethicone/Zinc Oxide 0 gm 02/20/21 21:44 02/21/21 07:55 Michell Protect Cream 142 Gm Tube TP 1 applic PRN PRN Administration Docusate Sodium 100 mg 02/21/21 08:30 02/24/21 20:51 Docusate Sodium 100 Mg Cap PO 100 mg BID ALDEN Administration Duloxetine HCl 20 mg 02/24/21 08:30 02/25/21 07:36 Duloxetine 20 Mg Cap PO 20 mg DAILY ALDEN Administration Sodium Chloride 500 mls @ 0 mls/hr 02/23/21 11:07 Saline 500ml Bag IV PRN PRN As Directed Sodium Chloride 1,000 mls @ 125 mls/hr 02/24/21 17:30 02/25/21 02:19 Saline 1000ml Bag IV 125 mls/hr INFUSION ALDEN Administration Lactulose 30 gm 02/24/21 08:30 02/24/21 08:51 Lactulose 20 Gm/30 Ml Cup PO 30 gm DAILY ALDEN Administration Levofloxacin 500 mg/ 750 mg 02/24/21 10:00 02/24/21 11:12 Levofloxacin 250 mg PO 750 mg DAILY@1000 ALDEN Administration Magnesium Hydroxide 30 ml 02/20/21 21:49 02/22/21 17:59 Milk Of Magnesia 30 Ml Cup PO 30 ml DAILY PRN Administration Melatonin 6 mg 02/21/21 22:00 02/24/21 21:42 Melatonin 3 Mg Tab PO 6 mg HS ALDEN Administration Midodrine 5 mg 02/21/21 08:30 02/25/21 07:35 Midodrine 2.5 Mg Tab PO 5 mg BID ALDEN Administration Mirtazapine 30 mg 02/24/21 22:00 02/24/21 21:42 Mirtazapine 15 Mg Tab PO 30 mg HS ALDEN Administration Multi-Ingredient Supplement 1 ounce 02/22/21 14:00 02/24/21 20:51 Protein Nutritional Supplement 16 Gm 1 Ounce Packet PO 1 ounce TID ALDEN Administration Multivitamins 1 tab 02/23/21 08:30 02/24/21 08:53 Multivitamin Tab PO 1 tab DAILY ALDEN Administration Ondansetron HCl 4 mg 02/20/21 21:49 Ondansetron 4 Mg Tab PO Q8H PRN Pantoprazole Sodium 40 mg 02/23/21 07:30 02/25/21 07:36 Pantoprazole 40 Mg Tabcr PO 40 mg DAILY@0730 ALDEN Administration Polyethylene Glycol 17 gm 02/21/21 08:30 02/24/21 20:51 Polyethylene Glycol 3350 17 Gm Packet PO 17 gm BID ALDEN Administration Psyllium Hydrophilic Mucilloid 1 each 02/24/21 20:00 02/24/21 20:51 Psyllium Pkt PO 1 each BID ALDEN Administration Sennosides 2 tab 02/25/21 08:30 Senna Tab PO DAILY ALDEN Sodium Chloride 10 ml 02/23/21 11:07 02/24/21 08:53 Normal Saline Flush 10 Ml Syr IVP 20 ml PRN PRN Administration Zinc Sulfate 220 mg 02/22/21 10:35 02/25/21 07:35 Zinc Sulfate 220 Mg Tab PO 03/08/21 11:00 220 mg DAILY ALDEN Administration Zolpidem Tartrate 5 mg 02/20/21 22:00 02/24/21 21:42 Zolpidem 5 Mg Tab PO 5 mg HS ALDEN Administration Home Medication Medication Instructions Recorded Lactobacillus acidoph-L.bulgaricus 1 tab PO TID tab 01/29/21 1 million cell tablet acetaminophen 500 mg capsule 1,000 mg PO Q8H PRN PRN cap 01/29/21 albuterol sulfate 90 mcg/actuation 2 inh INHALATION Q4H PRN 01/29/21 breath activated powder inhaler apixaban 5 mg tablet 5 mg PO BID 01/29/21 bisacodyl 10 mg rectal suppository [address] DAILY PRN 01/29/21 buspirone 10 mg tablet 10 mg PO TID tab 01/29/21 diclofenac sodium 1 % topical gel 1 applic TOPICAL Q6H PRN g 01/29/21 docusate sodium 100 mg capsule 100 mg PO BID 01/29/21 lactulose 20 gram/30 mL oral 30 ml PO DAILY ml 01/29/21 solution magnesium hydroxide 400 mg/5 mL 30 ml PO DAILY PRN 01/29/21 oral suspension melatonin 5 mg tablet 5 mg PO HS PRN tab 01/29/21 midodrine 2.5 mg tablet 5 mg PO BID tab 01/29/21 mirtazapine 45 mg tablet 45 mg PO QHS 01/29/21 phenyleph-shark liver [address] Q6H PRN 01/29/21 jzt-vwiene-hnd rectal cream polyethylene glycol 3350 17 17 g PO DAILY 01/29/21 gram/dose oral powder sennosides 8.6 mg capsule 17.2 mg PO BID 01/29/21 tizanidine 2 mg capsule 4 mg PO Q6H PRN cap 01/29/21 baclofen 5 mg PO Q6H PRN 02/20/21 ondansetron HCl [Zofran] 4 mg PO Q8H PRN 02/20/21 sodium phosphates [Fleet Enema] [address] PRN PRN 02/20/21 zolpidem 5 mg PO HS 02/20/21 Administered Discontinued Medications: Discontinued Medications Generic Name Dose Route Start Last Admin Trade Name Aashishq PRN Reason Stop Dose Admin Acetaminophen 1,000 mg 02/20/21 21:25 02/20/21 21:39 Acetaminophen 325 Mg Tab PO 02/20/21 21:26 1,000 mg NOW ONE Administration Ceftriaxone Sodium 1 gm 02/20/21 20:43 02/20/21 20:57 Ceftriaxone 1 Gm Vial IV 02/20/21 20:44 1 gm NOW ONE Administration Duloxetine HCl 40 mg 02/23/21 08:30 02/23/21 11:10 Duloxetine 20 Mg Cap PO 40 mg DAILY ALDEN Administration Sodium Chloride 1,000 mls @ 1,000 mls/hr 02/20/21 16:55 02/20/21 18:26 Saline 1000ml Bag IV 02/20/21 17:54 Infused BOLUS ONE Infusion Ringer's Solution 500 mls @ 500 mls/hr 02/20/21 23:25 02/21/21 00:45 IV 02/21/21 00:24 Infused BOLUS ONE Infusion Ringer's Solution 1,000 mls @ 125 mls/hr 02/20/21 23:30 02/22/21 01:31 IV 0 mls/hr INFUSION ALDEN Infusion Ceftriaxone Sodium/Dextrose 1 gm in 50 mls @ 100 mls/hr 02/21/21 20:00 02/23/21 21:55 Rocephin IVPB Infused Q24H ALDEN Infusion Magnesium Sulfate 4 gm in 100 mls @ 25 mls/hr 02/23/21 09:19 02/23/21 10:54 IVPB 02/23/21 13:18 Not Given NOW ONE Magnesium Sulfate 4 gm in 100 mls @ 25 mls/hr 02/23/21 10:45 02/23/21 11:10 IVPB 02/23/21 14:44 25 mls/hr NOW ONE Administration Iodixanol 100 ml 02/20/21 19:45 02/20/21 19:35 Visipaque 320 Mg/Ml 100 Ml Btl IJ 03/22/21 23:59 100 ml DIRECTED ALDEN Administration Lactulose 20 gm 02/21/21 08:30 02/23/21 08:58 Lactulose 20 Gm/30 Ml Cup PO 20 gm DAILY ALDEN Administration Magnesium Citrate 300 ml 02/24/21 08:20 02/24/21 08:52 Magnesium Citrate 300 Ml Btl PO 02/24/21 08:21 300 ml NOW ONE Administration Methylnaltrexone [place] 12 mg 02/24/21 07:40 02/24/21 09:25 Methylnaltrexone 12 Mg/0.6 Ml Vial SC 02/24/21 07:41 Not Given NOW ONE Methylnaltrexone [place] 12 mg 02/24/21 09:00 02/24/21 09:26 Methylnaltrexone 12 Mg/0.6 Ml Vial SC 02/24/21 09:01 Not Given NOW ONE Metoclopramide HCl 5 mg 02/24/21 08:00 02/24/21 14:44 Metoclopramide 10 Mg/2 Ml Vial IVP Not Given Q6H ALDEN Mirtazapine 45 mg 02/20/21 22:40 02/22/21 21:38 Mirtazapine 15 Mg Tab PO 45 mg HS ALDEN Administration Mirtazapine 15 mg 02/23/21 22:00 02/23/21 21:42 Mirtazapine 15 Mg Tab PO 15 mg HS ALDEN Administration Sennosides 2 tab 02/21/21 08:30 02/24/21 08:53 Senna Tab PO 2 tab BID ALDEN Administration Sodium Chloride 50 ml 02/20/21 19:45 02/20/21 19:36 Normal Saline - Diluent 50 Ml Vial IV 50 ml .FOR DI USE ALDEN Administration
--- NOTE | 2021-02-25 10:00 | DI.RAD_ITS ---
EXAM: XR ABDOMEN FLAT PLATE CLINICAL HISTORY: follow up gaseous distention of bowel. TECHNIQUE: 2D digital imaging was performed. COMPARISON: CR,XR XR ABDOMEN FLAT PLATE from 02/24/2021 FINDINGS: Again noted is abundant air throughout the bowel loops, similar to previous. Streaking is again note d in the soft tissues of the buttocks. No obvious radiographic evidence of osteomyelitis. IMPRESSION: DATA REPOSITORY: RADIATION DOSE DELIVERED:
--- NOTE | 2021-02-25 10:54 | W.PM.PROGNOT ---
Date of Service Date of service: 02/25/21 Time of Service: 10:54 Assessment and Plan Assessment and plan (1) Constipation: Status: Acute Assessment and plan: The patient had a few bowel movements and passage of moderate flatus overnight, but AXR this morning still shows significantly dilated bowel with paucity of air in the rectum. Will proceed with flex sig this morning for irrigation and decompression Qualifiers: Constipation type: unspecified constipation type Qualified Code(s): K59.00 - Constipation, unspecified (2) Decubitus skin ulcer: Status: Acute Assessment and plan: Plan to go to OR today for debridement of necrotic tissue Qualifiers: Pressure injury location: buttock Pressure injury stage: unstageable Laterality: unspecified laterality Qualified Code(s): L89.300 - Pressure ulcer of unspecified buttock, unstageable Subjective Subjective Patient reports: flatus and bowel movement; denies nausea and vomiting Interval history since last seen: Pt is feeling well. He reportedly had a few sizeable bowel movements with rectal stimulation and large passage of flatus. Exam Const General: cooperative and no acute distress Nutritional Appearance: average body habitus Orientation: alert, awake and oriented x3 Resp Effort & Inspection: normal respiratory effort and able to speak in complete sentences GI Inspection: distended Palpation: soft Other: soft, decreased distention but still present; tenderness cannot be assessed Other: suprapubic catheter in place draining light clear yellow urine Neuro General: patient alert, patient awake and patient oriented x3 Speech: speech normal Other: quadriplegic Psych Mood: congruent mood Affect: normal affect Attitude: cooperative Thought Content: normal Insight: insight good Judgment: judgment good Objective Last Vital Signs Temp 97.5 F L 02/25/21 07:24 Pulse 72 02/25/21 09:06 Resp 18 02/25/21 07:24 BP 137/91 H 02/25/21 07:24 Pulse Ox 98 02/25/21 07:24 Objective Narrative Objective Narrative: AXR (02/25/21): FINDINGS: Again noted is abundant air throughout the bowel loops, similar to previous. Streaking is again noted in the soft tissues of the buttocks. No obvious radiographic evidence of osteomyelitis.
--- NOTE | 2021-02-25 11:40 | PHA.REVIEW ---
Pharmacy Admission Review - Admission Clinical Review (Last Updated 02/23/21 @ 14:24 by Eliane Tolliver NP) UTI (urinary tract infection) (Acute) Discharge planning issues (Acute) DVT prophylaxis (Acute) Decubitus skin ulcer (Acute) Constipation (Acute) No Known Allergies Allergy (Unverified 11/26/18 03:46) Height 6 ft 2 in Weight 95 kg - Renal Dosing Renal Dosing: BUN 18 mg/dL (7-18) 02/24/21 06:36 Creatinine 0.8 mg/dL (0.70-1.30) 02/24/21 06:36 Medications needing adjustments: Reviewed (Crcl ~124 mL/min current meds okay) - Anticoagulation Anticoagulation: Hgb 9.2 g/dL (13.5-17.5) L 02/24/21 06:36 Hct 29.3 % (40.0-50.0) L 02/24/21 06:36 Plt Count 348 10^3/uL (130-400) 02/24/21 06:36 Creatinine 0.8 mg/dL (0.70-1.30) 02/24/21 06:36 DVT Prohphylaxis: N/A Therapeutic Anticoagulation: Reviewed Medications: Apixaban (on hold due to surgery today) - Opiate Usage Evaluate Pain Scale/Pains Meds: N/A - Relevant Labs Sodium 140 mmol/L (136-145) 02/24/21 06:36 Potassium 4.2 mmol/L (3.5-5.1) 02/24/21 06:36 Chloride 104 mmol/L (98-107) 02/24/21 06:36 Magnesium 2.0 mg/dL (1.8-2.4) 02/24/21 06:36 C-Reactive Protein 19.71 mg/dL (0.0-0.3) H 02/20/21 17:20 Electrolytes, C-Reactive P, ESR: Reviewed - DM Control DM Control: Glucose 102 mg/dL (74-106) 02/24/21 06:36 Insulin Dosing: N/A - Heart Failure/PR EF%, JAYLON's, B-Blockers, Diuretics: N/A - BP Control BP Control: Blood Pressure 137/91 Blood Pressure 116/71 If elevated: Reviewed (BP has been up and down some this admission, the last couple days it has mainly been elevated.) - Qtc Review If Elevated: N/A (QTc on admission 421) - IV to PO Switch IV Medications: Reviewed - Home Meds Home Med List reviewed: Reviewed (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 Magnesium hydroxide may decrease the effectiveness of bisacodyl and lactulose.) Relevent Home Meds Not ordered & why?: fleet enema (PRN, has other BM meds ordered), tizanidine (PRN, has other muscle relaxant ordered) - Current meds Current Medication Order Review: Reviewed - Comments Comments/Follow Ups: Watch BP, labs and for med changes (resumption of apixaban postop). Antibiotic Activity - Pharmacy Antibiotic Review Pharmacy Antibiotic Activity: Reviewed, no change (levofloxacin (day 2, day 6 total abx))
--- NOTE | 2021-02-25 12:45 | DEUL_PTH ---
PATIENT: Bruce Velasquez JR LOC: U#:[id number] AGE/SX: 55/M ROOM: RE02/22/[address]: Lauri Larry : 1965 BED: A DIS: 03/02/2021 SPEC #: [id number] RECD: 02/25/21 17:33 STATUS: SY REQ #: [id number] YUE: 02/25/21 12:[address]: Lauri Larry DEPT: Surgical Specimen RECD BY: Alexa Carson ENTERED: 02/25/21 17:35 SP TYPE: Decu Ulcer OTHR DR: Michelle Pearce,Rayna Sheldon Tissues: 1 - ULCER DECUBITUS 2 - ULCER DECUBITUS Procedures: GROSS AND MICRO LEVEL 3 Comments: [id number]
[2021-02-25] MEDS: Cellulose,Oxidized 4X8 1 PACKET MC (13:31)
--- NOTE | 2021-02-25 13:37 | PGE_ITS ---
Date of Service Date of service: 02/25/21 Time of Service: 13:37 Assessment and Plan Assessment and plan (1) UTI (urinary tract infection): Status: Acute Assessment and plan: continue oral levaquin day 2/7 Cultures pansensitive he received 3 days of ceftriaxone (2) Constipation: Status: Acute Assessment and plan: Xray yesterday consistent with constipation Did repeat two more enemas, added, reglan with oral mag citrate and will repeat xray at 1500 to or today for decompression of bowel rectal stimulation TID Qualifiers: Constipation type: unspecified constipation type Qualified Code(s): K59.00 - Constipation, unspecified (3) Decubitus skin ulcer: Status: Acute Assessment and plan: He has large decubiti ah his ischial tuberosities.Bilateral sides Possible surgery debridement today, apixaban held today Tissue is necrotic on left side and softening on right side, santyl being used Qualifiers: Laterality: unspecified laterality Pressure injury location: buttock Pressure injury stage: unstageable Qualified Code(s): L89.300 - Pressure ulcer of unspecified buttock, unstageable (4) Neurogenic bladder: Status: Chronic Assessment and plan: Due to c6,c7 fracture quadrapalegic suprapubic catheter (5) Quadriplegia: Status: Chronic Assessment and plan: from falling on ivan purposeful movements to arms (6) Major depressive disorder: Status: Chronic Assessment and plan: he is grieving his life situation and having severe depression. Started on cymbalta 20 , decreased mirtazepam to 30. (7) DVT prophylaxis: Status: Acute Assessment and plan: apixaban, holding today OR (8) Discharge planning issues: Status: Acute Assessment and plan: He will have to return to H/R on discharge though he does not want to. 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 He would like to ultimately be at home, he states family will be able to take care of him. above case discussed with Dr. Murillo Subjective Subjective Interval history since last seen: to the OR today for possible debridement of wounds and decompression of bowel. Exam Narrative Exam Narrative: Alert and oriented. Const General: cooperative and no acute distress HENMT Head: normal to inspection Ears: hearing grossly normal bilaterally Eyes General: appearance normal, both eyes and all related structures Neck Neck: normal visual inspection Chest Chest: normal inspection of the chest Resp Effort & Inspection: normal respiratory effort Cardio Rhythm: regular rhythm Heart Sounds: S1 normal and S2 normal GI Inspection: normal to inspection Palpation: no hepatosplenomegaly Skin Lesions: lesion noted (bilateral buttocks ulcers debrided in the OR today, I have not visualized, ) Neuro General: patient alert, patient awake and patient oriented x3 Cranial Nerves: PERRL and no nystagmus Cognition: normal cognition Extrem General: abnormal ROM (bilateral lower extremity paralysis, flacid, denies sensation) and muscle atrophy Psych Appearance: grossly normal Affect: blunted Attitude: avoids eye contact Objective Last Vital Signs Temp 36.4 C L 02/25/21 07:24 Pulse 72 02/25/21 09:06 Resp 18 02/25/21 07:24 BP 137/91 H 02/25/21 07:24 Pulse Ox 98 02/25/21 07:24
--- NOTE | 2021-02-25 14:03 | W.ANESPOSTOP ---
Postoperative Evaluation Date, Time and Location Date Performed: 02/25/21 Time Performed: 14:03 Patient Location: Med/Surg Vital Signs Most Recent Imported Vital Signs: Most Recent Vital Signs Temp Pulse Resp BP Pulse Ox 35.7 C L 84 20 112/66 96 02/25/21 14:00 02/25/21 14:00 02/25/21 14:00 02/25/21 14:00 02/25/21 14:00 Assessment Mental Status: Awake (Alert & Oriented to Patient Baseline) Airway and Respiratory Function: Patent airway with normal (patient baseline) respiratory exam Cardiovascular Function: Hemodynamically Stable Hydration Status: Adequately Hydrated Nausea & Vomiting: No Nausea or Vomiting Pain: Pt. Denies Any Pain Peripheral Nerve Block: Patient did not receive a nerve block
[2021-02-25] MEDS: Protein Nutritional Supplement 16 GM 1 OUNCE PACKET PO ×2 (14:51→20:45)
--- NOTE | 2021-02-25 14:54 | PT.INTREAT ---
Date of service: 02/25/21 Time of Service: 14:54 PT Notes Visit Reasons: OBSTIPATION Inpatient Physical Therapy Treatment Note [facility] Date: 02/25/2021 Precautions: Fall. C6-C7 Quadriplegic. High risk for skin breakdown. SUBJECTIVE: Agreeable to PT session. Amenable to OT assessment when Nurse Jorge and this provider brought the possibility of addressing self-feeding needs while on admission. Denies pain. Did report some ned-lh-[id number] pulling sensation in B shoulders with range of motion exercises. Hopeful that he can get the motorized wheelchair that he has at the [facility] in [place] where he went to previously. Indicates that there is a billing issue that needed to be resolved before said DME could be delivered. Receptive to continued PT to address B UE and trunk weakness. OBJECTIVE: Supine on an alternating pressure mattress. IV in R UE. Beck catheter in place. Complete paralysis of B LE, paresis in B UE. Plantarflexion and inversion contracture beginning in B ankles. THEREX: Passive, active-assitive, and active range of motion performed on all joints of the B UE and LE per flowsheet. PNF D1 flexion and extension pattern done to B UE. Used foam squeezes to B hands. Patient was then positioned in bed to suspend heel and to facilitate dorsiflexion to neutral using blue soft booties. ASSESSMENT: Reported some stiffness and gui-[id number] discomfort in B shoulders. No sensation in B LE. Beginning plnatarflexion contracture in B ankles. PLAN: Patient will be limited to positioning on alternating pressure mattress in bed to allow for healing of debrided sacral wounds. Will perform sitting balance and tolerance at edge of bed in the morning session and perform range of motion exercises in the afternoon session to achieve goal of achieving maximized motorized wheelchair positioning at the SNF when discharged from hospital. D/C recommedantions: Motorized wheelchair with joystick (or head activated mechanism as needed), elevating leg rests, leg guards, adjustable length leg rests, pressure-relieving cushion, thigh guards, seat belt as positioner, and tilt mechanism to allow for pressure reduction and contracture prevention. TREATMENT CODE/TIME: 48145 x 50 minutes beginning at 14:54 PM.
[2021-02-25] MEDS: levoFLOXacin 500 MG, levoFLOXacin 250 MG 750 MG PO (15:09)
--- NOTE | 2021-02-25 18:02 | PDOC.CMPRO ---
- If Service Date Differs Date of service: 02/25/21 Time of Service: 18:02 Care Management Progress Note S/O: Favio was sitting up in bed when CM met with him. He had surgery today to debride the decubitus ulcers on his ischial tuberosities. Favio appeared down today and when questioned, admitted that he was a bit. He shared that it has been a hectic day with no quiet time for him. This afternoon CM had a conference call from Favio's room with Favio and Nicki. CM inquired about the referrals that had been sent. Nicki shared that she has not heard back in a while and would contact them again tomorrow. CM also asked about the electric wheelchair that had reportedly been ordered for Favio while he was at [facility]. CM offered to follow up tomorrow to determine the status of the wheelchair and Favio's ability to have it with him. A: Favio is a 55 year old man admitted on 02/20/21 with constipation P: Favio will likely return to [facility] when medically ready for discharge. He will continue to seek placement at another facility; referrals have been sent. He will follow up with his PCP and discharge plan and transport via facility W/C van. CM will continue to support Favio and his family and assess for ongoing discharge needs.
[2021-02-25] MEDS: Psyllium PKT 1 EACH PO (20:45)
[2021-02-25] MEDS: Polyethylene Glycol 3350 17 GM PACKET PO (20:45)
[2021-02-25] MEDS: Apixaban 5 MG TAB PO (20:45)
[2021-02-25] MEDS: Ascorbic Acid 500 MG TAB PO (20:45)
[2021-02-25] MEDS: Docusate Sodium 100 MG CAP PO (20:45)
[2021-02-25] MEDS: Zolpidem 5 MG TAB PO (20:51)
[2021-02-25] MEDS: Melatonin 3 MG TAB 6 MG PO (20:51)
[2021-02-25] MEDS: Mirtazapine 15 MG TAB 30 MG PO (20:51)
--- NOTE | 2021-02-25 22:19 | W.COLOREPORT ---
Date of service: 02/25/21 Time of Service: 11:40 Colonoscopy Report Date of procedure: 02/25/21 Pre-op diagnosis general: fecal impaction Post-op diagnosis procedure note: same Procedure: Flexible sigmoidoscopy, colonic lavage Surgeon: Wale Calderon Anesthesia Type: MAC Estimated blood loss (mL): 0 Pathology: none sent Complications: None Disposition: floor Indications: This is a 55yo male with a recent spinal cord injury at C6-7 on 10/26/20. He presented to the ED on 02/20 with diarrhea, and ischial decubitus ulcers. A CT abd/pel revealed a significant stool burden in the rectum. The patient underwent a few manual disimpactions, and has been on an aggressive bowel regimen from above and below. However, he was still quite distended yesterday, and a CT obtained demonstrated perisistent stool burden in the upper rectum with a large column of gas above. After reviewing the risks and benefits, the patient agreed to proceed with flexible sigmoidoscopy to aid in the passage of stool and gas. Findings: Formed thick stool in skip areas through the left colon to the proximal descending colon with a few areas of adherent stool casts. Scattered diverticula. Procedure Description: After identifying the patient by name and birthdate, he was positioned in left lateral position. A timeout was called and participated in by the entire OR team. Once we were in agreement, we proceeded. The colonoscope was introduced into the rectum and carefully advanced to the proximal descending colon with aggressive lavage. Areas where there were thick clumps of stool were irrigated and gentle torque of the scope were used to break them down. Also, there were a couple of areas were the stool was densely adherent, like casts, and these were irrigated until they detached. The scope was then withdrawn, irrigating and suctioning pools of liquified stool. A total of ~2L of fluid was used to lavage the colon. The patient tolerated the procedure well, and at the conclusion, his abdomen was much less distended and softer.
--- NOTE | 2021-02-25 22:39 | W.PM.OP ---
Date of service: 02/25/21 Time of Service: 12:30 Operative Note Operative Note DATE OF PROCEDURE: 02/25/21 PRE-OP DIAGNOSIS: bilateral ischial decubitus ulcers POST-OP DIAGNOSIS: same PROCEDURE: Debridement of bilateral ischial decubitus ulcers SURGEON: Wale Calderon ANESTHESIA TYPE: MAC and Other (Given the patient is insensate below the level of the nipples minimal medication was given to keep the patient comfortable ) Refer to Anesthesia Record ESTIMATED BLOOD LOSS: 20 PATHOLOGY: other (1. Left ischial tuberosity decubitus ulcer 2. Right ischial tuberosity decubitus ulcer) COMPLICATIONS: None Patient was transported to: floor Patient's condition: stable Indications: This is a 55yo male with quadriplegia s/p a C6-7 spinal cord injury on 10/26/20. He has been hospitalized/institutionalized since then. On 02/20, he was admitted for UTI, diarrhea, fecal impaction, and decubitus ulcer management. The patient was evaluate by the wound care team, and they consulted surgery for debridement of necrotic tissue. Findings: Stage 4 decubitus ulcers bilaterally without bone exposure, but it is palpable. On the right, there is tunneling towards but does not enter the scrotum. Procedure Description: This procedure followed a flexible sigmoidoscopy, and colonic lavage performed on this patient for fecal impaction. Under the same timeout, we carefully repositioned this patient in prone jackknife position on the operating room table ensuring proper gel padding and support throughout. I began on the left side, incising the circumference of the wound with a 15 blade. Electrocautery was used to separate the devitalized tissue from viable. A specimen was passed off. A iodine scrub brush was used to debride the wound further, and sharp excision with a combination of scalpel and scissors removed the nonviable tissue. The wound was thoroughly irrigated and hemostasis achieved. I then turned my attention to the right side, and completed the same process as the left. Of note, there was subcutaneous tunneling towards the scrotum but did not enter it. Each wound was then irrigated again, and Surgicel was placed around the base of the wound, and 4x4 wet gauze was packed inside. The wounds were dressed with 4x4 gauze and paper tape on top. He was carefully rolled onto the stretcher and transferred to the floor in stable condition.
[2021-02-26] MEDS: Normal Saline 1,000 ML 125 ML IV (01:37)
[2021-02-26 03:40] VITALS: BP 132/76; PULSE 84; RESP 19; TEMP 37.5; O2SAT 97
[2021-02-26 06:40] LABS: Abs Immature Grans 0.11 10^3/uL (0.0-0.06); Absolute Basophil Count 0.02 10^3/uL (0.0-0.2); Absolute Eosinophil Count 0.31 10^3/uL (0.0-0.7); Absolute Lymphocyte Count 1.86 10^3/uL (1.2-3.4); Absolute Monocyte Count 0.67 10^3/uL (0.1-0.8); Absolute Neutrophil Count 5.15 10^3/uL (1.2-6.7); Basophils % 0.2; Eosinophils % 3.8; HGB 8.4 g/dL (13.5-17.5); Immature Grans % 1.4; Lymphocytes % 22.9; MCHC 31.1 % (32.0-36.0); MCV 86.8 fL (80-95); MPV 9.5 fL (8.0-11.0); Monocytes % 8.3; Neutrophils % 63.4; Nucleated RBC 0 %; Platelet Count 350 10^3/uL (130-400); RBC 3.11 10^6/uL (4.36-5.78); RDW 13.2 % (11.8-14.1); RDW-SD 41.1 fL; WBC 8.12 10^3/uL (4.4-10.8)
[2021-02-26 06:52] LABS: Anion Gap 8.1 mmol/L (3-11); BUN 14 mg/dL (7-18); CO2 25.9 mmol/L (21.0-32.0); CREATININE 0.7 mg/dL (0.70-1.30); Chloride 107 mmol/L (98-107); Glucose 109 mg/dL (74-106); Potassium 4.2 mmol/L (3.5-5.1); Sodium 141 mmol/L (136-145)
[2021-02-26 07:50] VITALS: BP 143/85; PULSE 82; RESP 20; TEMP 36.9; O2SAT 100
[2021-02-26] MEDS: Psyllium PKT 1 EACH PO ×2 (08:16→20:59)
[2021-02-26] MEDS: DULoxetine 20 MG CAP PO (08:16)
[2021-02-26] MEDS: Zinc Sulfate 220 MG TAB PO (08:16)
[2021-02-26] MEDS: Lactulose 20 GM/30 ML CUP 30 GM PO (08:16)
[2021-02-26] MEDS: Protein Nutritional Supplement 16 GM 1 OUNCE PACKET PO ×3 (08:16→20:59)
[2021-02-26] MEDS: Polyethylene Glycol 3350 17 GM PACKET PO ×2 (08:16→20:59)
[2021-02-26] MEDS: Multivitamin TAB 1 TAB PO (08:17)
[2021-02-26] MEDS: Ascorbic Acid 500 MG TAB PO ×2 (08:17→20:59)
[2021-02-26] MEDS: Midodrine 2.5 MG TAB 5 MG PO ×2 (08:17→20:59)
[2021-02-26] MEDS: Senna TAB 2 TAB PO (08:17)
[2021-02-26] MEDS: Pantoprazole 40 MG TABCR PO (08:17)
[2021-02-26] MEDS: busPIRone 5 MG TAB 10 MG PO ×3 (08:17→20:59)
[2021-02-26] MEDS: Docusate Sodium 100 MG CAP PO ×2 (08:18→20:59)
[2021-02-26] MEDS: Lactobacillus Acidophilus CAP 1 CAP PO ×3 (08:18→20:59)
[2021-02-26] MEDS: Apixaban 5 MG TAB PO ×2 (08:18→20:59)
--- NOTE | 2021-02-26 08:41 | OT.INIE ---
Occupational Therapy Notes Inpatient Occupational Therapy Evaluation Date: 02/26/21 Referring Doctor:Wendy Skinner NP OT Orders: Non-Urgent Precautions: Full, Fall, Standard PATIENT PROFILE/ADMITTING DIAGNOSIS: Pt is a 55 year old male who presented to the ED from SNF for the following dx of major depressive disorder, quaridplegia, UTI, decubitus skin ulcer, constipation, and neurogenic bladder. Past Medical History: Medical History (Updated 02/20/21 @ 22:10 by Lauri Larry MD) Acute embolism and thrombosis of deep vein of right lower extremity Anxiety disorder C. difficile colitis Dislocation of C6/C7 cervical vertebrae Fall down embankment Fusion of spine Hypotension Major depressive disorder Neurogenic bladder Quadriplegia Social History/Home Situation: Pt currently residing at SNF where his DME needs are met. He is functionally requiring what he reports as Max (A) for everything. He can perform his eating routines although notes that its a mess for him and he gets everything all over him. He would like to have better function of his (B) UE. His hands are currently in a contracted position which is bothersome to him. Equipment owned/DME: DME needs met by SNF SUBJECTIVE: Pt was lying in bed when OT arrived, he is agreeable to OT Session and notes that he is feeling better but would like more functional (I). OBJECTIVE: General Observation: Pleasant and appropriate, IV (R) UE, pereyra in place, ulcers present Mental Status: A&Ox3 Pain: pain in digits in the extended position ROM: RUE shoulder flexion minimal, elbow WFL, wrist extension is fair, digits in contracted position L UE shoulder flexion minimal, elbow WFL, wrist extension is fair, digits in contracted position STRENGTH: RUE Certified Family Mediator strength is weak LUE Certified Family Mediator strength is weak SENSATION: decreased sensation in (B) FUNCTIONAL MOBILITY/ADLS: BATHING Max (A) DRESSING Max (A) GROOMING Pt is able to bring hand to mouth for brushing his teeth but he requires (A) his lack of (B) UE strength limits his success in performance. TOILETING Max (A) EATING with modified hand utensils, pt is able to perform stabbing into food and food to mouth but requires (A) for positional angle of fork, TABLE FILLER with holding cup with holding cup with handles, and is very fatigued after 10 minutes. Then pt requires max (A) for performance. OT will work with pt for modification of eating routine to progress his functional (I) and increase his gross motor control of (B) UE. BALANCE: Static sitting Good Dynamic Sitting Good SPECIAL TESTS: Daily Activity Limitations Standardized Measure [facility] AM -PAC ?6 clicks? Daily Activity Inpatient Short Form: Raw score: 7 Standardized score: 20.13 CMS score: 92.44% INFORMED CONSENT/EDUCATION: Pt instructed in purpose of OT Consult and plan of care. ASSESSMENT: Patient is a 55-year-old male referred to occupational therapy services with diagnosis of major depressive disorder, quaridplegia, UTI, decubitus skin ulcer, constipation, neurogenic bladder. Patient presents with clinical signs and symptoms consistent with dx, as demonstrated by the following impairment level findings/functional limitations: Pt requires max (A) for most ADL/IADL routines, he has contracted position of his digits and decreased functional activity tolerance due to fatigue. Decreased sensation in (B) UE and inability to perform his functional mobility (I) without (A). AMPAC score 7 Patient is assessed as a Moderate 91028 complexity based on the following: History: see above Examination: see functional limitations as noted above Presentation: evolving Decision Making: AMPAC score 7, CMS 92.44% GOALS Goals x1 week 1. Grooming- pt will be mod (I) with brushing his teeth with mod vc throughout 2. Dressing- Pt will be mod (A) with don and doffing shirt 3. Bathing- pt will be able to (I) wash his face and (B) UE 4. Eating- with adaptive equipment pt will be (I) with eating and wiping his face PLAN OF CARE/TREATMENT PLAN: 1x/day, 5 days/ week x 1week Initiate Occupational Therapy Services for bathing, dressing, grooming, toileting, eating, transfer training. DISCHARGE RECOMMENDATIONS Return to SNF vs. Home with 24 hour care givers. TREATMENT TIME/MINUTES/CODES 47474, [id number], 65 minutes (07:35) [facility]
--- NOTE | 2021-02-26 09:24 | W.PM.PROGNOT ---
Date of Service Date of service: 02/26/21 Time of Service: 09:24 Assessment and Plan Assessment and plan (1) Decubitus skin ulcer: Status: Acute Assessment and plan: POD#1 s/p debridement of ischial decubitus ulcers. --VAC to be placed today --f/u pathology --continue local wound care with wet to dry, careful to protect serge-wound skin --case mangagement for placement Qualifiers: Pressure injury location: buttock Pressure injury stage: unstageable Laterality: unspecified laterality Qualified Code(s): L89.300 - Pressure ulcer of unspecified buttock, unstageable (2) Constipation: Status: Acute Assessment and plan: POD#1 s/p flexible sigmoidoscopy with colonic lavage. He was decompressed well post-procedure but is now more distended with tympany. --consider simethicone --continue rectal stimulation --encourage oral water intake --fiber supplementation Qualifiers: Constipation type: unspecified constipation type Qualified Code(s): K59.00 - Constipation, unspecified Subjective Subjective Patient reports: no new complaints, feels better, tolerating a regular diet and bowel movement; denies nausea Interval history since last seen: SOme difficulty sleeping, but feels well. Passed more stools last night after the procedure. Exam Const General: cooperative, comfortable and no acute distress Nutritional Appearance: average body habitus Orientation: alert, awake and oriented x3 Resp Effort & Inspection: normal respiratory effort, able to speak in complete sentences, not labored and no respiratory distress GI Inspection: distended Palpation: soft Percussion: tympanic to percussion Other: suprapubic catheter in place draining clear yellow urine Neuro General: patient alert, patient awake and patient oriented x3 Psych Speech and Movement: speech and movement normal Mood: congruent mood Affect: normal affect Attitude: cooperative Thought Process: normal Thought Content: normal Insight: insight good Judgment: judgment good Objective Last Vital Signs Temp 98.4 F 02/26/21 07:50 Pulse 82 02/26/21 07:50 Resp 20 02/26/21 07:50 BP 143/85 H 02/26/21 07:50 Pulse Ox 100 02/26/21 07:50 Laboratory Results - last 24 hr 02/26/21 02/26/21 06:10 06:10 WBC 8.12 RBC 3.11 L Hgb 8.4 L Hct 27.0 L MCV 86.8 MCH 27.0 MCHC 31.1 L RDW 13.2 Plt Count 350 MPV 9.5 Immature Gran % 1.4 Neutrophils % 63.4 Lymphocytes % 22.9 Monocytes % 8.3 Eosinophils % 3.8 Basophils % 0.2 Nucleated RBC % 0 Absolute Neutrophils 5.15 Absolute Lymphocytes 1.86 Absolute Monocytes 0.67 Absolute Eosinophils 0.31 Absolute Basophils 0.02 Sodium 141 Potassium 4.2 Chloride 107 Carbon Dioxide 25.9 Anion Gap 8.1 BUN 14 Creatinine 0.7 Estimated GFR/1.73 m2 >= 60.00 Glucose 109 H Calcium 9.0 C-Reactive Protein 5.40 H
--- NOTE | 2021-02-26 10:35 | PT.INTREAT ---
Date of service: 02/26/21 Time of Service: 10:35 PT Notes Visit Reasons: OBSTIPATION Inpatient Physical Therapy Treatment Note [facility] Date: 02/26/2021 Precautions: Fall. C6-C7 Quadriplegic. High risk for skin breakdown. SUBJECTIVE: Compliant with today's session activities. Reported some discomfort in B shoulders with exercise performance. Beginning to get frustrated about delivery/procurement of his motorized wheelchair, wondering if assistance can be provided while on admission. LEIGHANN Nguyen assured patient that she will revisit issue with care management and asked help from nurse Patel to attempt to assist with Ipad management as his hand/finger dexterity is very much compromised. OBJECTIVE: Supine on an alternating pressure mattress. IV in R UE. Beck catheter in place. Complete paralysis of B LE, paresis in B UE. Plantarflexion and inversion contracture beginning in B ankles. Kinesiotape in B fingers placed by OT early this morning. THEREX: 1. PNF D1/D2 flexion and extension to B LE done passively with intermittent spasms in trunk and B LE observed x 10. 2. PNF D1/d2 flexion and extension using 1 lb DB in B UE with close guarding provided for safety, again with intermittent spasms in trunk and B LE observed. Contralateral synkinesis observed in UE. 3. Shoulder ER/IR, FA pron/supi x 10 each with 1 lb DB. 4. DBE x 3 in between each exercise. THERA ACT: 1. In hooklying, attempted small amplitude trunk flexion but no range was achieved although contraction of B UE and abdominals were observed. This was done 10x. 2. Repositioned patient so that hip ER and ankle PF contractures are prevented, blue soft booties and heels up were used as PF block. ASSESSMENT: Incomplete C6-C7 SCI with preserved sensation and motor function at C8 and T1 level. Appeared to have more range available in B UE today. Better able to hold 1 lb DB today compared to yesterday. Unable to transfer patient onto another surface due to sacral decubiti at this time. Will coordinate with wound nurse/hospitalist for properly fitting air-filled or gel chair cushion to minimize shearing and pelvic/trunk misalignment. Deferred afternoon session as patient has just had a second decubitus debridement by Dr. Gaspar this afternoon. Will plan on performing sitting activity in the next session. PLAN: Progress UE strengthening and trunk stabilization exercises in order to maximize wheelchair positioning goal. D/C recommedantions: Motorized wheelchair with joystick (or head activated mechanism as needed), elevating leg rests, leg guards, adjustable length leg rests, pressure-relieving cushion, thigh guards, seat belt as positioner, and tilt mechanism to allow for pressure reduction and contracture prevention. TREATMENT CODE/TIME: 49523 x 55 minutes, 90887 x 20 minutes beginning at 10:35 AM.
--- NOTE | 2021-02-26 11:43 | W.PM.PROGNOT ---
Date of Service Date of service: 02/26/21 Time of Service: 11:43 Assessment and Plan Assessment and plan (1) UTI (urinary tract infection): Status: Acute Assessment and plan: continue oral levaquin day 3/7 Cultures pansensitive he received 3 days of ceftriaxone (2) Constipation: Status: Acute Assessment and plan: to or yesterday for decompression of bowel, has been stooling. will add simethicone for gas distention. stop lactulose rectal stimulation TID continue close monitoring Qualifiers: Constipation type: unspecified constipation type Qualified Code(s): K59.00 - Constipation, unspecified (3) Decubitus skin ulcer: Status: Acute Assessment and plan: surgically debrided, waiting for wound vac. continue wet to dry for now repositioning per protocol Qualifiers: Pressure injury location: buttock Pressure injury stage: unstageable Laterality: unspecified laterality Qualified Code(s): L89.300 - Pressure ulcer of unspecified buttock, unstageable (4) Neurogenic bladder: Status: Chronic Assessment and plan: Due to c6,c7 fracture quadrapalegic suprapubic catheter (5) Quadriplegia: Status: Chronic Assessment and plan: from falling on ivan purposeful movements to arms (6) Major depressive disorder: Status: Chronic Assessment and plan: he is grieving his life situation and having severe depression. Started on cymbalta 20 , decreased mirtazepam to 30. (7) DVT prophylaxis: Status: Acute Assessment and plan: apixaban, holding today OR (8) Discharge planning issues: Status: Acute Assessment and plan: He will have to return to [facility] on discharge though he does not want to. 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 He would like to ultimately be at home, he states family will be able to take care of him. above case discussed with Dr. morel Subjective Subjective Patient reports: no new complaints, feels better, tolerating liquids well, tolerating a regular diet, bowel movement and afebrile Interval history since last seen: working with PT. abdomen slightly more distended today. not tender, having BM's. Exam Narrative Exam Narrative: Alert and oriented. Const General: cooperative and no acute distress HENMT Head: normal to inspection Ears: hearing grossly normal bilaterally Eyes General: appearance normal, both eyes and all related structures Neck Neck: normal visual inspection Lymphatic: no lymphadenopathy noted Chest Chest: normal inspection of the chest Resp Effort & Inspection: normal respiratory effort Auscultation: clear to auscultation bilaterally Cardio Rhythm: regular rhythm Heart Sounds: S1 normal and S2 normal GI Inspection: normal to inspection Palpation: no hepatosplenomegaly Skin Lesions: lesion noted (bilateral buttocks ulcers debrided in the OR today, I have not visualized, ) Neuro General: patient alert, patient awake and patient oriented x3 Cranial Nerves: PERRL and no nystagmus Cognition: normal cognition Extrem General: abnormal ROM (bilateral lower extremity paralysis, flacid, denies sensation) and muscle atrophy Psych Appearance: grossly normal Affect: blunted Attitude: avoids eye contact Objective Last Vital Signs Temp 36.9 C 02/26/21 07:50 Pulse 82 02/26/21 07:50 Resp 20 02/26/21 07:50 BP 143/85 H 02/26/21 07:50 Pulse Ox 100 02/26/21 07:50 Laboratory Results - last 24 hr 02/26/21 02/26/21 06:10 06:10 WBC 8.12 RBC 3.11 L Hgb 8.4 L Hct 27.0 L MCV 86.8 MCH 27.0 MCHC 31.1 L RDW 13.2 Plt Count 350 MPV 9.5 Immature Gran % 1.4 Neutrophils % 63.4 Lymphocytes % 22.9 Monocytes % 8.3 Eosinophils % 3.8 Basophils % 0.2 Nucleated RBC % 0 Absolute Neutrophils 5.15 Absolute Lymphocytes 1.86 Absolute Monocytes 0.67 Absolute Eosinophils 0.31 Absolute Basophils 0.02 Sodium 141 Potassium 4.2 Chloride 107 Carbon Dioxide 25.9 Anion Gap 8.1 BUN 14 Creatinine 0.7 Estimated GFR/1.73 m2 >= 60.00 Glucose 109 H Calcium 9.0 C-Reactive Protein 5.40 H
--- NOTE | 2021-02-26 11:59 | PDOC.CMPRO ---
- If Service Date Differs Date of service: 02/26/21 Time of Service: 11:59 Care Management Progress Note /O: Favio was sitting up in bed when CM met with him. He verbalized being tired as he had had a busy day. Dr. Gaspar debrided his decubitii again, this time at the bedside. He was scheduled to a have wound applied but when the doctor examined the wounds it was clear that more tissue needed to be removed before the wound vac could be applied. Favio called Nicki and a 3 way conversation was held. Nicki requested that CM folllow up on SNF referrals that were reportedly sent from [facility] and Favio requested that CM contact the [employer] company that was working on getting him an electric wheelchair. [employer] was able to ascertain that Favio's wheelchair order is in the final stages and it should be ready for delivery soon. A: Favio is a 55 year old man admitted on 02/20/21 with constipation P: Favio will likely return to [facility] when medically ready for discharge. He will continue to seek placement at another facility; referrals have been sent. He will follow up with his PCP and discharge plan and transport via facility W/C van. CM will continue to support Favio and his family and assess for ongoing discharge needs.
[2021-02-26] MEDS: Simethicone 80 MG CHEW 40 MG PO ×2 (12:46→17:34)
[2021-02-26] MEDS: levoFLOXacin 500 MG, levoFLOXacin 250 MG 750 MG PO (13:26)
[2021-02-26 15:37] VITALS: BP 182/95; PULSE 86; RESP 18; TEMP 37; O2SAT 97
[2021-02-26] MEDS: Gelatin SPONGE 12-7 MM PKT 1 EACH TP (16:00)
--- NOTE | 2021-02-26 16:27 | NUR.NOTE ---
Nursing Note: Set patient up to apply wound vac. He was adjusted to a position of comfort. i was taking measurements . Dr. Gaspar entered the room. she looked at the wounds and had concerns that the one on the left ischial tuberosity, still had an excessive amount of devitalized tissue in the base. She spoke to the patient. She assessed him for pain and sensation. She strongly suggested after this that the patient go through some more debridement at the bedside. Patient did agree to have this performed. 20 [id number] later the returned with a consent , and explained to then patient the intent of the procedure, risk and benefit. She asked the patient if he would consent, and he answeredSure, why not. since patient was not able to sign for himself. I signed the consent as a witness. Dr. Gaspar only removed a little tissue from the right side. She did however, remove a large amount of devitalized tissue from the left side. As the continued to see, Patient did appear to get further agitated , and though he denied it, I felt that he was feeling pain from the procedure. at that point, Packed the wound with Kerlix, and covered it with an ABD pad and secured the dressing with a pair of serge pants. Dr. Gaspar does not want the wound vac applied tonight. She only wants the abd pads replace and secured with clean serge pants should they saturate with blood. Patient was made comfortable in his bed, and he was left with the tap marshall in reach. Nursing will monitor patient tonight for bleeding. Wound nursing will attemptn to place the wound vac again tomorrow
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
--- NOTE | 2021-02-26 17:23 | NUR.NOTE ---
Nursing Note: After opportunity to relax patient did agree after rationales were explained, that it was best to have had the devitalized tissue removed and get to the base of the wound. Patient was a totla feed at both lunch and dinner, he did eat well at both meals, with no complaints expressed or noted
[2021-02-26] MEDS: Mirtazapine 15 MG TAB 30 MG PO (21:00)
[2021-02-26] MEDS: Zolpidem 5 MG TAB PO (21:00)
[2021-02-26] MEDS: Melatonin 3 MG TAB 6 MG PO (21:00)
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
[2021-02-27 01:00] VITALS: BP 157/91; PULSE 77; RESP 19; TEMP 36.9; O2SAT 96
[2021-02-27 06:52] LABS: Iron 26 ug/dL (65-175); Total Iron Binding Capacity 196 ug/dL (250-450); Transferrin Sat 13 % (20-55)
[2021-02-27 07:11] LABS: Albumin 2.7 g/dL (3.4-5.0); Ferritin 221 ng/mL (26-388); TSH 4.82 uIU/mL (0.36-3.74); Vitamin B12 470 pg/mL (193-986)
[2021-02-27 07:15] VITALS: BP 125/81; PULSE 80; RESP 16; TEMP 37.2; O2SAT 97
[2021-02-27] MEDS: Apixaban 5 MG TAB PO ×2 (08:24→19:37)
[2021-02-27] MEDS: Midodrine 2.5 MG TAB 5 MG PO ×2 (08:24→19:38)
[2021-02-27] MEDS: Psyllium PKT 1 EACH PO ×2 (08:24→19:39)
[2021-02-27] MEDS: Polyethylene Glycol 3350 17 GM PACKET PO ×2 (08:24→19:41)
[2021-02-27] MEDS: Lactobacillus Acidophilus CAP 1 CAP PO ×3 (08:24→19:37)
[2021-02-27] MEDS: Protein Nutritional Supplement 16 GM 1 OUNCE PACKET PO ×3 (08:24→19:39)
[2021-02-27] MEDS: Ascorbic Acid 500 MG TAB PO ×2 (08:25→19:39)
[2021-02-27] MEDS: Zinc Sulfate 220 MG TAB PO (08:25)
[2021-02-27] MEDS: busPIRone 5 MG TAB 10 MG PO ×3 (08:26→19:38)
[2021-02-27] MEDS: Simethicone 80 MG CHEW 40 MG PO ×3 (08:26→18:42)
[2021-02-27] MEDS: Senna TAB 2 TAB PO (08:26)
[2021-02-27] MEDS: Pantoprazole 40 MG TABCR PO (08:26)
[2021-02-27] MEDS: DULoxetine 20 MG CAP PO (08:26)
[2021-02-27] MEDS: Docusate Sodium 100 MG CAP PO ×2 (08:26→19:45)
--- NOTE | 2021-02-27 09:00 | OT.INTREAT ---
Date of service: 02/27/21 Time of Service: 07:20 Occupational Therapy Notes Occupational Therapy Inpatient Treatment Note Date: 02/27/21 PRECAUTIONS: Fall, standard, Full SUBJECTIVE: Pt was lying in bed when OT arrived, He notes that he is tired and woke up early to having his blood drawn. OBJECTIVE: PAIN:c/o pain throughout body and with spasms that occur EATING: OT educates and trains pt in adaptive swivel spoon. Pt is able to demonstrate grasp with built up handle. He is not receptive to performance with actual food today as he notes increased fatigue. OT will continue to progress this to increase his functional (I). OT provided mod vc for sitting position and grasp and release and educates pt on the importance of this to increase his functional (I) throughout. Manual Therapy [id number]: OT performed joint blocking techniques and manual mobilization to pts (B) UE. He is tolerating this well and with use of tool OT performed IASTM with down regulation on dorsal aspect of digits. OT taped dorsal aspect of digits to (A) with digit extension and instructed pt to leave on till dinner time if her tolerates this ok. ASSESSMENT/PLAN: Plan is to conitinue to progress pts (I) in his eating routine and functional use of his (B) UE. Rock Tape seems to be (A) with extension giving pt a more functional grasp and release pattern. OT will continue to progress pt as symptoms allow. TREATMENT CODES/TIME: [id number], 35 minutes (07:20) [facility]
[2021-02-27] MEDS: HYDROmorphone 2 MG/ML VIAL 1 MG IVP (10:07)
[2021-02-27 11:06] LABS: FREE T4 0.91 ng/dL (0.76-1.46)
--- NOTE | 2021-02-27 12:06 | CMPROGNOTE_ITS ---
- If Service Date Differs Date of service: 02/27/21 Time of Service: 12:06 Care Management Progress Note S/O: Favio was lying in bed when CM met with him. He reported that the wound vac had just been applied to his wounds. As he has no sensation below chest level, it was not painful, but since it took over an hour, he was uncomfortable. Favio asked about his wheelchair and CM updated him . CM also shared that the referral sent to [facility] from [facility] had not been received, per the facility. CM sent a new referral with updated information from this hospital stay. A: Favio is a 55 year old man admitted on 02/20/21 with constipation P: Favio will likely return to [facility] when medically ready for discharge. He will continue to seek placement at another facility; referrals have been sent. He will follow up with his PCP and discharge plan and transport via facility W/C van. CM will continue to support Favio and his family and assess for ongoing discharge needs.
[2021-02-27] MEDS: levoFLOXacin 500 MG, levoFLOXacin 250 MG 750 MG PO (14:19)
[2021-02-27 15:01] VITALS: BP 107/72; PULSE 83; RESP 18; TEMP 37.3; O2SAT 95
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
[2021-02-27] MEDS: Normal Saline Flush 10 ML SYR IVP (19:42)
--- NOTE | 2021-02-27 20:43 | W.PM.PROGNOT ---
Date of Service Date of service: 02/27/21 Time of Service: 20:43 Assessment and Plan Assessment and plan (1) Decubitus skin ulcer: Status: Acute Assessment and plan: S/p debridement x2 Wound vac in place. Will check wound on Thursday at time of dressing change Qualifiers: Pressure injury location: buttock Pressure injury stage: unstageable Laterality: unspecified laterality Qualified Code(s): L89.300 - Pressure ulcer of unspecified buttock, unstageable Subjective Subjective Interval history since last seen: Mr. Velasquez is doing OK. He had a woundvac placed today. He has not had any discomfort with the vac dressing. He has not had any fevers Exam Const General: cooperative, comfortable and no acute distress Orientation: alert and oriented x3 Resp Effort & Inspection: normal respiratory effort Objective Last Vital Signs Temp 99.1 F 02/27/21 15:01 Pulse 83 02/27/21 15:01 Resp 18 02/27/21 15:01 BP 107/72 02/27/21 15:01 Pulse Ox 95 02/27/21 15:01 Laboratory Results - last 24 hr 02/27/21 02/27/21 02/27/21 06:10 06:10 06:10 Iron 26 L TIBC 196 L Transferrin % Sat 13 L Ferritin 221 Albumin 2.7 L Vitamin B12 470 TSH 4.82 H Free T4 0.91
[2021-02-27] MEDS: Melatonin 3 MG TAB 6 MG PO (21:28)
[2021-02-27] MEDS: Mirtazapine 15 MG TAB 30 MG PO (21:29)
[2021-02-27] MEDS: Zolpidem 5 MG TAB PO (21:29)
[2021-02-27 22:20] VITALS: BP 106/69; PULSE 89; RESP 18; TEMP 37.1; O2SAT 96
--- NOTE | 2021-02-28 | DI.MRI_ITS ---
Exam(s) MR PELVIS WO/W EXAM: MR PELVIS WO/W CLINICAL HISTORY: r/o osteo,SKIN ULCER,WOUND TECHNIQUE: Multiplanar multisequence MRI of Pelvis was performed. CONTRAST MATERIAL: IV Contrast: 19 mL of Dotarem contrast administered. COMPARISON: CT CT ABDOMEN PELVIS WO from 02/24/2021 FINDINGS: Bones: There is no fracture or contusion pattern. On the T2 weighted images mild hyperintense signal is seen in both ischial tuberosities, left greater than right. These areas show hypointense signal on the T1 weighted images. The findings are unchanged following contrast administration. There is n ormal signal in the marrow of the sacrum. Following contrast administration, no enhancing mass is se en. Musculotendinous structures: Mild nonspecific edema is seen in the gluteal muscles bilaterally, righ t greater than left. There is edema seen in the subcutaneous tissues but no focal fluid collection is seen to suggest an abscess. There is a suprapubic catheter in place. IMPRESSION: No definite evidence to suggest acute osteomyelitis. Results of this exam have been verbally communicated with provider. DATA REPOSITORY:
[2021-02-28 07:14] VITALS: BP 135/80; PULSE 84; RESP 17; TEMP 36.5; O2SAT 96
[2021-02-28] MEDS: Senna TAB 2 TAB PO (07:47)
[2021-02-28] MEDS: Pantoprazole 40 MG TABCR PO (07:47)
[2021-02-28] MEDS: busPIRone 5 MG TAB 10 MG PO ×3 (07:47→21:25)
[2021-02-28] MEDS: Apixaban 5 MG TAB PO ×2 (07:47→21:25)
[2021-02-28] MEDS: Ascorbic Acid 500 MG TAB PO ×2 (07:47→21:26)
[2021-02-28] MEDS: DULoxetine 20 MG CAP PO (07:47)
[2021-02-28] MEDS: Polyethylene Glycol 3350 17 GM PACKET PO (07:47)
[2021-02-28] MEDS: Psyllium PKT 1 EACH PO (07:47)
[2021-02-28] MEDS: Midodrine 2.5 MG TAB 5 MG PO ×2 (07:47→21:26)
[2021-02-28] MEDS: Protein Nutritional Supplement 16 GM 1 OUNCE PACKET PO ×3 (07:47→21:25)
[2021-02-28] MEDS: Zinc Sulfate 220 MG TAB PO (07:48)
[2021-02-28] MEDS: Docusate Sodium 100 MG CAP PO (07:48)
[2021-02-28] MEDS: Lactobacillus Acidophilus CAP 1 CAP PO ×3 (07:48→21:26)
[2021-02-28] MEDS: Normal Saline Flush 10 ML SYR IVP ×4 (07:48→21:24)
[2021-02-28 08:50] LABS: Prealbumin 18 mg/dL (20-40)
[2021-02-28 08:52] LABS: Abs Immature Grans 0.11 10^3/uL (0.0-0.06); Absolute Basophil Count 0.04 10^3/uL (0.0-0.2); Absolute Eosinophil Count 0.28 10^3/uL (0.0-0.7); Absolute Monocyte Count 0.54 10^3/uL (0.1-0.8); Absolute Neutrophil Count 6.66 10^3/uL (1.2-6.7); Basophils % 0.4; Eosinophils % 2.9; HCT 31.9 % (40.0-50.0); Immature Grans % 1.2; Lymphocytes % 19.9; MCH 27.2 pg (27.0-33.0); MCHC 31.3 % (32.0-36.0); MCV 86.9 fL (80-95); MPV 9.2 fL (8.0-11.0); Monocytes % 5.7; Neutrophils % 69.9; Nucleated RBC 0 %; Platelet Count 405 10^3/uL (130-400); RBC 3.67 10^6/uL (4.36-5.78); RDW 13.2 % (11.8-14.1); RDW-SD 41.5 fL; WBC 9.53 10^3/uL (4.4-10.8)
[2021-02-28 08:57] LABS: Anion Gap 11.2 mmol/L (3-11); BUN 21 mg/dL (7-18); CO2 28.8 mmol/L (21.0-32.0); CREATININE 0.8 mg/dL (0.70-1.30); Calcium 9.5 mg/dL (8.5-10.1); Chloride 101 mmol/L (98-107); Glucose 98 mg/dL (74-106); Magnesium 1.9 mg/dL (1.8-2.4); Potassium 4.3 mmol/L (3.5-5.1); Sodium 141 mmol/L (136-145)
[2021-02-28] MEDS: Simethicone 80 MG CHEW 40 MG PO ×3 (09:17→18:25)
[2021-02-28] MEDS: diazePAM 5 MG TAB PO ×2 (09:18→11:38)
--- NOTE | 2021-02-28 09:33 | CMPROGNOTE_ITS ---
- If Service Date Differs Date of service: 02/28/21 Time of Service: 09:34 Care Management Progress Note S/O: Favio was lying in bed when CM met with him. He was pleasant and engaged well with CM. Favio had many questions about his specialty bed and asked if he could get one at [facility]. CM explained that the bed is rented by the hospital for him while he is here . The decision about bed rental at [facility] would be up to the facility and their policies. CM contacted [employer] to ascertain the cost of the rental but could only leave a message with the appropriate person. Favio is scheduled to have an MRI today to rule out the presence of osteomyelitis related to his decubitii. A: Favio is a 55 year old man admitted on 02/20/21 with constipation P: Favio will likely return to [facility] when medically ready for discharge. He will continue to seek placement at another facility; referrals have been sent. He will follow up with his PCP and discharge plan and transport via facility W/C van. CM will continue to support Favio and his family and assess for ongoing discharge needs.
--- NOTE | 2021-02-28 09:39 | OT.INTREAT ---
Date of service: 02/28/21 Time of Service: 07:50 Occupational Therapy Notes Occupational Therapy Inpatient Treatment Note Date: 02/28/21 PRECAUTIONS: Fall, standard, Full SUBJECTIVE: Pt was lying in bed when OT arrived, He notes that he is discouraged that his (B) hands went back to the contracted position but OT emphasizes that the more pts hands are open the better that they won't be contracted. OBJECTIVE: PAIN:c/o pain throughout body and with spasms that occur Manual Therapy [id number]: OT performed joint blocking techniques and manual mobilization to pts (B) UE. He is tolerating this well and with use of tool OT performed IASTM with down regulation on dorsal aspect of digits. OT taped dorsal aspect of digits to (A) with digit extension and instructed pt to leave on over night if her tolerates this ok. ASSESSMENT/PLAN: Plan is to continue to prevent contractures in pts (B) UE, OT will work with pt on gross motor control of his arms and increase his functional (I) in his ADL/IADL routines. TREATMENT CODES/TIME: [id number], 20 minutes (07:50) [facility]
[2021-02-28] MEDS: HYDROmorphone 2 MG/ML VIAL 1 MG IVP (09:55)
[2021-02-28 10:04] LABS: Lactate 1.3 mmol/L (0.6-1.4)
--- NOTE | 2021-02-28 10:13 | W.NUTRFU ---
Date of service: 02/28/21 Time of Service: 10:13 Nutritional Follow up NOTE: Bruce ordered 1 oz liquid protein TID, MVI, Vit C and Zinc sulfate and continues on regular meal plan with adequate intake. Currently meeting increased nutrient needs for optimal wound healing. Prealbumin pending (02/27/21). Will continue to follow. Time Spent in Nutritional Counseling and Treatment: 0
[2021-02-28] MEDS: Multivitamin w/Minerals TAB 1 TAB PO (11:37)
--- NOTE | 2021-02-28 11:48 | PT.INTREAT ---
Date of service: 02/28/21 Time of Service: 10:40 PT Notes Visit Reasons: OBSTIPATION Inpatient Physical Therapy Treatment Note [facility] Date: 02/28/2021 PRECAUTIONS: Quadriplegia C6-C7 SUBJECTIVE: Favio is pleasant and agreeable to participating in PT. He states I dread seeing you exercise people walk in the door because I know it's hard work, but after a few exercises, it's not that bad and it actually feels good. OBJECTIVE: Patient not available for afternoon PT session due to being away for MRI testing, eating lunch, and sleeping. PAIN: No c/o pain BED MOBILITY/TRANSFERS Rolling L/R: Max A x2 for positioning for dressing change THEREX: Patient completed a resisted UE strengthening program, including punchouts, bicep curls, shoulder IR/ER, shoulder flexion, triceps kickbacks, forearm supination/pronation, completed in a supine position. Patient requires assist to reach full ROM and for stability with exercises. He utilizes pink foam cube and 2.5# ankle weights on his wrists for resistance with each exercise, excluding forearm supination during which he utilizes yellow Theraband. Patient requires rest breaks between each exercise due to fatigue. ASSESSMENT: Patient tolerated session well, although with c/o increased muscle fatigue with ther ex. He PLAN: Continue with UE and core strengthening, as tolerated. TREATMENT CODE/TIME: 30 minutes; [id number] x2 (10:40)
--- NOTE | 2021-02-28 12:23 | PGE_ITS ---
Date of Service Date of service: 02/28/21 Time of Service: 10:30 Assessment and Plan Assessment and plan (1) Decubitus skin ulcer: Start date: 02/28/21 Start time: 10:30 Status: Acute Assessment and plan: Wound vac placed yesterday, though today due to loose stool requiring several drsg changes. Will pack with w to dry at this time, change stool regimen and make PRN only keep fiber scheduled and motegrity sched. MRI to r/o osteo. Concern by surgery as bone exposure. Valium PO given for a nxiety. MRI pending at this time Having pain to bilateral shoulders with drsg change will give prn dilaudid with drsg change for shoulder pain Qualifiers: Pressure injury location: buttock Pressure injury stage: unstageable Laterality: unspecified laterality Qualified Code(s): L89.300 - Pressure ulcer of unspecified buttock, unstageable (2) UTI (urinary tract infection): Start date: 02/28/21 Start time: 12:25 Status: Resolved Assessment and plan: continue oral levaquin day 5/7 Cultures pansensitive he received 3 days of ceftriaxone (3) Constipation: Start date: 02/28/21 Start time: 12:25 Status: Chronic Assessment and plan: will add simethicone for gas distention. rectal stimulation TID continue close monitoring Stool formed Will also add prucalopride for chronic idiopathic constipation Will continue sched, fiber but make other medications prn, as stool was loose today Qualifiers: Constipation type: unspecified constipation type Qualified Code(s): K59.00 - Constipation, unspecified (4) Neurogenic bladder: Start date: 02/28/21 Start time: 12:28 Status: Chronic Assessment and plan: Due to c6,c7 fracture quadrapalegic suprapubic catheter (5) Quadriplegia: Start date: 02/28/21 Start time: 12:28 Status: Chronic Assessment and plan: from falling on ivan purposeful movements to arms (6) Major depressive disorder: Start date: 02/28/21 Start time: 12:28 Status: Chronic Assessment and plan: he is grieving his life situation and having severe depression. Started on cymbalta 20, increased to 30 mg daily starting tomorrow, decreased mirtazepam to 30. (7) DVT prophylaxis: Start date: 02/28/21 Start time: 12:28 Status: Acute Assessment and plan: apixaban, resumed. (8) Discharge planning issues: Start date: 02/28/21 Start time: 12:28 Status: Acute Assessment and plan: He will have to return to H/R on discharge though he does not want to. 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 He would like to ultimately be at home, he states family will be able to take care of him. above case discussed with Dr. morel Subjective Subjective Patient reports: other Interval history since last seen: Patient still appears depressed, he states he didn't sleep well. Will increase cymbalta and increase ambien. Exam Narrative Exam Narrative: Alert and oriented. Const General: cooperative and no acute distress HENMT Head: normal to inspection Ears: hearing grossly normal bilaterally Eyes General: appearance normal, both eyes and all related structures Neck Neck: normal visual inspection Lymphatic: no lymphadenopathy noted Chest Chest: normal inspection of the chest Resp Effort & Inspection: normal respiratory effort Auscultation: clear to auscultation bilaterally Cardio Rhythm: regular rhythm Heart Sounds: S1 normal and S2 normal GI Inspection: normal to inspection Palpation: no hepatosplenomegaly Neuro General: patient alert, patient awake and patient oriented x3 Cranial Nerves: PERRL and no nystagmus Cognition: normal cognition Extrem General: abnormal ROM (bilateral lower extremity paralysis, flacid, denies sensation) and muscle atrophy Psych Appearance: grossly normal Affect: blunted Attitude: avoids eye contact Objective Last Vital Signs Temp 36.5 C 02/28/21 07:14 Pulse 84 02/28/21 07:14 Resp 17 02/28/21 07:14 BP 135/80 02/28/21 07:14 Pulse Ox 96 02/28/21 07:14 Laboratory Results - last 24 hr 02/27/21 02/28/21 02/28/21 06:10 08:38 08:38 WBC 9.53 RBC 3.67 L Hgb 10.0 L Hct 31.9 L MCV 86.9 MCH 27.2 MCHC 31.3 L RDW 13.2 Plt Count 405 H MPV 9.2 Immature Gran % 1.2 Neutrophils % 69.9 Lymphocytes % 19.9 Monocytes % 5.7 Eosinophils % 2.9 Basophils % 0.4 Nucleated RBC % 0 Absolute Neutrophils 6.66 Absolute Lymphocytes 1.90 Absolute Monocytes 0.54 Absolute Eosinophils 0.28 Absolute Basophils 0.04 VBG Lactate Sodium 141 Potassium 4.3 Chloride 101 Carbon Dioxide 28.8 Anion Gap 11.2 H BUN 21 H D Creatinine 0.8 Estimated GFR/1.73 m2 >= 60.00 Glucose 98 Calcium 9.5 Magnesium 1.9 Prealbumin 18 L 02/28/21 10:00 WBC RBC Hgb Hct MCV MCH MCHC RDW Plt Count MPV Immature Gran % Neutrophils % Lymphocytes % Monocytes % Eosinophils % Basophils % Nucleated RBC % Absolute Neutrophils Absolute Lymphocytes Absolute Monocytes Absolute Eosinophils Absolute Basophils VBG Lactate 1.3 Sodium Potassium Chloride Carbon Dioxide Anion Gap BUN Creatinine Estimated GFR/1.73 m2 Glucose Calcium Magnesium Prealbumin
[2021-02-28] MEDS: Gadoterate meglumine 20 ML VIAL 19 ML IVP (12:57)
[2021-02-28] MEDS: levoFLOXacin 500 MG, levoFLOXacin 250 MG 750 MG PO (13:29)
[2021-02-28 15:35] VITALS: BP 106/72; PULSE 102; RESP 17; TEMP 37.1; O2SAT 98
[2021-02-28] MEDS: Melatonin 3 MG TAB 6 MG PO (21:26)
[2021-02-28] MEDS: Zolpidem 5 MG TAB 10 MG PO (21:26)
[2021-02-28] MEDS: Mirtazapine 15 MG TAB 30 MG PO (21:27)
[2021-02-28 23:00] VITALS: BP 122/75; PULSE 65; RESP 20; TEMP 36.1; O2SAT 99
[2021-03-01 07:07] LABS: Abs Immature Grans 0.11 10^3/uL (0.0-0.06); Absolute Basophil Count 0.02 10^3/uL (0.0-0.2); Absolute Eosinophil Count 0.34 10^3/uL (0.0-0.7); Absolute Lymphocyte Count 1.84 10^3/uL (1.2-3.4); Absolute Monocyte Count 0.66 10^3/uL (0.1-0.8); Absolute Neutrophil Count 7.01 10^3/uL (1.2-6.7); Basophils % 0.2; Eosinophils % 3.4; HCT 30.1 % (40.0-50.0); HGB 9.5 g/dL (13.5-17.5); Immature Grans % 1.1; Lymphocytes % 18.4; MCH 27.1 pg (27.0-33.0); MCHC 31.6 % (32.0-36.0); MPV 9.5 fL (8.0-11.0); Monocytes % 6.6; Neutrophils % 70.3; Nucleated RBC 0 %; Platelet Count 388 10^3/uL (130-400); RDW 13.2 % (11.8-14.1); RDW-SD 40.9 fL; WBC 9.98 10^3/uL (4.4-10.8)
[2021-03-01 07:35] LABS: Anion Gap 7.4 mmol/L (3-11); BUN 25 mg/dL (7-18); CO2 28.6 mmol/L (21.0-32.0); CREATININE 0.8 mg/dL (0.70-1.30); Calcium 9.4 mg/dL (8.5-10.1); Chloride 103 mmol/L (98-107); Glucose 98 mg/dL (74-106); Potassium 4.2 mmol/L (3.5-5.1); Sodium 139 mmol/L (136-145)
[2021-03-01 07:41] VITALS: BP 131/77; PULSE 79; RESP 20; TEMP 36.3; O2SAT 98
[2021-03-01] MEDS: Pantoprazole 40 MG TABCR PO (08:23)
[2021-03-01] MEDS: Protein Nutritional Supplement 16 GM 1 OUNCE PACKET PO ×3 (09:27→21:53)
[2021-03-01] MEDS: Midodrine 2.5 MG TAB 5 MG PO ×2 (09:29→21:55)
[2021-03-01] MEDS: Psyllium PKT 1 EACH PO (09:29)
[2021-03-01] MEDS: Ascorbic Acid 500 MG TAB PO ×2 (09:29→21:55)
[2021-03-01] MEDS: Simethicone 80 MG CHEW 40 MG PO ×3 (09:30→17:48)
[2021-03-01] MEDS: Zinc Sulfate 220 MG TAB PO (09:30)
[2021-03-01] MEDS: DULoxetine 30 MG CAP PO (09:30)
[2021-03-01] MEDS: Lactobacillus Acidophilus CAP 1 CAP PO ×3 (09:32→21:56)
[2021-03-01] MEDS: Multivitamin w/Minerals TAB 1 TAB PO (09:34)
[2021-03-01] MEDS: busPIRone 5 MG TAB 10 MG PO ×3 (09:34→21:55)
[2021-03-01] MEDS: Apixaban 5 MG TAB PO ×2 (09:34→21:55)
--- NOTE | 2021-03-01 10:59 | OTTR_ITS ---
Date of service: 03/01/21 Time of Service: 10:05 Occupational Therapy Notes Occupational Therapy Inpatient Treatment Note Date: 03/01/21 PRECAUTIONS: Fall, standard, Full SUBJECTIVE: Pt was lying in bed when OT arrived, He notes that his hands don't feel any difference but he is happy that they are not in the contracted position at all times now. He has two (B) UE braces on his hands and he is happy that there is less edema. This is going to be important for his surgical intervention in April. OBJECTIVE: PAIN:c/o pain throughout body and with spasms that occur Manual Therapy [id number]: OT performed joint blocking techniques and manual mobilization to pts (B) UE at MP, IP and DIP as well as PROM to pts (B) thumbs into flexion. He is tolerating this well and with use of tool OT performed IASTM with down regulation on dorsal aspect of digits. OT passively mobilized pts (B) wrists into flexion and extension which he had some pain at end ranges. His tendons are tight. OT was able to achieve full ROM of pts digits into extension with no pain. OT did straps pts (B) UE into extension with support to prevent the flexion contractured positions. OT educates pt to have these removed 1x every 2 hours and gently bend his fingers to prevent an extension contracture. OT will monitor pts response to todays session and progress accordingly. ASSESSMENT/PLAN: Plan is to continue to prevent contractures in pts (B) UE, OT will work with pt on gross motor control of his arms and increase his functional (I) in his ADL/IADL routines. Pt is making improved functional gains in his (B) UE at this time. TREATMENT CODES/TIME: [id number], 35 minutes (10:05) [facility]
--- NOTE | 2021-03-01 11:07 | PGE_ITS ---
Date of Service Date of service: 03/01/21 Time of Service: 11:07 Assessment and Plan Assessment and plan (1) Decubitus skin ulcer: Start date: 03/01/21 Start time: 11:10 Status: Acute Assessment and plan: MRI pending official read though I did speak with Dr. Dove and there appears to be no osteo. Will discharge to H/R on Thursday if surgery agrees. He will go with wound vac per surgery directions. Will try to place wound vac on today as stool has formed and slowed down Qualifiers: Pressure injury location: buttock Pressure injury stage: unstageable Laterality: unspecified laterality Qualified Code(s): L89.300 - Pressure ulcer of unspecified buttock, unstageable (2) UTI (urinary tract infection): Start date: 03/01/21 Start time: 11:11 Status: Resolved Assessment and plan: continue oral levaquin day 6/7 Cultures pansensitive he received 3 days of ceftriaxone (3) Constipation: Start date: 03/01/21 Start time: 11:12 Status: Chronic Assessment and plan: will add simethicone for gas distention. rectal stimulation TID continue close monitoring Stool formed Will also add prucalopride for chronic idiopathic constipation Will continue sched, fiber but make other medications prn, as stool was loose today He has only had one loose stool Qualifiers: Constipation type: unspecified constipation type Qualified Code(s): K59.00 - Constipation, unspecified (4) Neurogenic bladder: Start date: 03/01/21 Start time: 11:13 Status: Chronic Assessment and plan: Due to c6,c7 fracture quadrapalegic suprapubic catheter (5) Quadriplegia: Start date: 03/01/21 Start time: 11:13 Status: Chronic Assessment and plan: from falling on ivan purposeful movements to arms (6) Major depressive disorder: Start date: 03/01/21 Start time: 11:13 Status: Chronic Assessment and plan: he is grieving his life situation and having severe depression. Started on cymbalta 20, increased to 30 mg daily starting tomorrow, decreased mirtazepam to 30. He appears in a better mood today Slept well last night increased ambien to 10 mg last night (7) DVT prophylaxis: Start date: 03/01/21 Start time: 11:13 Status: Acute Assessment and plan: apixaban, daily for DVT to RLE (8) Discharge planning issues: Start date: 03/01/21 Start time: 11:14 Status: Acute Assessment and plan: He will have to return to H/R on discharge though he does not want to. CM is working on different placement at this time He also is applying for correction medicaid. He would like to ultimately be at home, he states family will be able to take care of him. above case discussed with Dr. morel Subjective Subjective Patient reports: no new complaints Interval history since last seen: Favio, appears to be doing well today. He is in good spirits. MRI not dictated, but did speak to Dr. Dove radiologist looked at MRI and stated no osteo, will have official read this afternoon. He will likely be able to return to H/R on Thursday if surgery agrees. He is stooling less, tolerating diet. Exam Narrative Exam Narrative: Alert and oriented. Const General: cooperative and no acute distress HENMT Head: normal to inspection Ears: hearing grossly normal bilaterally Eyes General: appearance normal, both eyes and all related structures Neck Neck: normal visual inspection Lymphatic: no lymphadenopathy noted Chest Chest: normal inspection of the chest Resp Effort & Inspection: normal respiratory effort Auscultation: clear to auscultation bilaterally Cardio Rhythm: regular rhythm Heart Sounds: S1 normal and S2 normal GI Inspection: normal to inspection Palpation: no hepatosplenomegaly Neuro General: patient alert, patient awake and patient oriented x3 Cranial Nerves: PERRL and no nystagmus Cognition: normal cognition Extrem General: abnormal ROM (bilateral lower extremity paralysis, flacid, denies se nsation) and muscle atrophy Psych Appearance: grossly normal Affect: blunted Attitude: avoids eye contact Objective Last Vital Signs Temp 36.3 C L 03/01/21 07:41 Pulse 79 03/01/21 07:41 Resp 20 03/01/21 07:41 BP 131/77 03/01/21 07:41 Pulse Ox 98 03/01/21 07:41 Laboratory Results - last 24 hr 03/01/21 03/01/21 06:28 06:28 WBC 9.98 RBC 3.50 L Hgb 9.5 L Hct 30.1 L MCV 86.0 MCH 27.1 MCHC 31.6 L RDW 13.2 Plt Count 388 MPV 9.5 Immature Gran % 1.1 Neutrophils % 70.3 Lymphocytes % 18.4 Monocytes % 6.6 Eosinophils % 3.4 Basophils % 0.2 Nucleated RBC % 0 Absolute Neutrophils 7.01 H Absolute Lymphocytes 1.84 Absolute Monocytes 0.66 Absolute Eosinophils 0.34 Absolute Basophils 0.02 Sodium 139 Potassium 4.2 Chloride 103 Carbon Dioxide 28.6 Anion Gap 7.4 BUN 25 H Creatinine 0.8 Estimated GFR/1.73 m2 >= 60.00 Glucose 98 Calcium 9.4
[2021-03-01] MEDS: Normal Saline Flush 10 ML SYR IVP ×2 (11:24→15:55)
[2021-03-01] MEDS: HYDROmorphone 2 MG/ML VIAL 1 MG IVP ×2 (11:25→15:56)
--- NOTE | 2021-03-01 12:55 | W.PM.PROGNOT ---
Date of Service Date of service: 03/01/21 Time of Service: 12:56 Assessment and Plan Assessment and plan (1) Decubitus skin ulcer: Status: Acute Assessment and plan: NO change in size. No granulation tissue observed Wound vacs applied Continue with wound vac changes MWF OK to discharge back to SNF on Thursday Qualifiers: Pressure injury location: buttock Pressure injury stage: unstageable Laterality: unspecified laterality Qualified Code(s): L89.300 - Pressure ulcer of unspecified buttock, unstageable Subjective Subjective Interval history since last seen: Mr. Barrera is doing well. The wound vac was removed for his MRI. He has no complaints. Per nursing his BM's are a bit more solid and less frequent Exam GI Other: Decubitous ulcers- no change is the measurements. There is no granulation tissue. MRI negative for Osteo. 2 wound vacs applied. One to each ulcer. Objective Last Vital Signs Temp 97.3 F L 03/01/21 07:41 Pulse 79 03/01/21 07:41 Resp 20 03/01/21 07:41 BP 131/77 03/01/21 07:41 Pulse Ox 98 03/01/21 07:41 Laboratory Results - last 24 hr 03/01/21 03/01/21 06:28 06:28 WBC 9.98 RBC 3.50 L Hgb 9.5 L Hct 30.1 L MCV 86.0 MCH 27.1 MCHC 31.6 L RDW 13.2 Plt Count 388 MPV 9.5 Immature Gran % 1.1 Neutrophils % 70.3 Lymphocytes % 18.4 Monocytes % 6.6 Eosinophils % 3.4 Basophils % 0.2 Nucleated RBC % 0 Absolute Neutrophils 7.01 H Absolute Lymphocytes 1.84 Absolute Monocytes 0.66 Absolute Eosinophils 0.34 Absolute Basophils 0.02 Sodium 139 Potassium 4.2 Chloride 103 Carbon Dioxide 28.6 Anion Gap 7.4 BUN 25 H Creatinine 0.8 Estimated GFR/1.73 m2 >= 60.00 Glucose 98 Calcium 9.4
[2021-03-01] MEDS: levoFLOXacin 500 MG, levoFLOXacin 250 MG 750 MG PO (14:15)
--- NOTE | 2021-03-01 15:09 | W.NUTRFU ---
Date of service: 03/01/21 Time of Service: 15:09 Nutritional Follow up NOTE: Met with Bruce today. Prealbumin level low, indicating poor visceral protein stores, and inadequate dietary protein prior to admission. Recommend continue liquid protein 1 oz TID at discharge until wound healed. Reviewed nutrient intake goals and encouraged follow in outpatient setting as needed. Contact information provided. Time Spent in Nutritional Counseling and Treatment: 10
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
[2021-03-01 15:27] VITALS: BP 120/75; PULSE 104; RESP 17; TEMP 37.5; O2SAT 98
[2021-03-01] MEDS: Zolpidem 5 MG TAB 10 MG PO (21:54)
[2021-03-01] MEDS: Melatonin 3 MG TAB 6 MG PO (21:55)
[2021-03-01] MEDS: Mirtazapine 15 MG TAB 30 MG PO (21:55)
[2021-03-01 23:22] VITALS: BP 120/74; PULSE 90; RESP 18; TEMP 37.4; O2SAT 98
[2021-03-02 06:53] LABS: Abs Immature Grans 0.09 10^3/uL (0.0-0.06); Absolute Basophil Count 0.03 10^3/uL (0.0-0.2); Absolute Eosinophil Count 0.29 10^3/uL (0.0-0.7); Absolute Lymphocyte Count 2.04 10^3/uL (1.2-3.4); Absolute Neutrophil Count 6.34 10^3/uL (1.2-6.7); Basophils % 0.3; Eosinophils % 3.1; HCT 30.4 % (40.0-50.0); HGB 9.5 g/dL (13.5-17.5); Immature Grans % 0.9; Lymphocytes % 21.5; MCH 26.9 pg (27.0-33.0); MCHC 31.3 % (32.0-36.0); MCV 86.1 fL (80-95); MPV 9.4 fL (8.0-11.0); Monocytes % 7.4; Neutrophils % 66.8; Nucleated RBC 0 %; Platelet Count 409 10^3/uL (130-400); RBC 3.53 10^6/uL (4.36-5.78); RDW 13.5 % (11.8-14.1); RDW-SD 41.9 fL; WBC 9.49 10^3/uL (4.4-10.8)
[2021-03-02 07:05] LABS: Anion Gap 10.9 mmol/L (3-11); BUN 27 mg/dL (7-18); CO2 27.1 mmol/L (21.0-32.0); CREATININE 0.9 mg/dL (0.70-1.30); Calcium 9.6 mg/dL (8.5-10.1); Chloride 102 mmol/L (98-107); Glucose 94 mg/dL (74-106); Potassium 4.2 mmol/L (3.5-5.1); Sodium 140 mmol/L (136-145)
[2021-03-02 07:42] VITALS: BP 151/80; PULSE 78; RESP 18; TEMP 36.6; O2SAT 98
--- NOTE | 2021-03-02 08:25 | CMPROGNOTE_ITS ---
Care Management Progress Note S/O: Favio remains pleasant and engaged, osteomyelitis ruled out. Per provider, Bruce will need referral to GI in [place] for Ostomy as an outpatient, as well he will need to be followed by the wound clinic in [place]-referrals to be completed on Thursday. CM notified [facility] of need for two wound vacs for anticipated discharge Thursday- person who answered noted that the facility does not currently have a social problems specialist or chief business development officer at this time. CM reviewed Magi, PRESSER HAND recommendation for wet to dry dressing changes until wound vac arrives. CM continues to follow. A: Favio is a 55 year old man admitted on 02/20/21 with constipation P: Favio will likely return to [facility] when medically ready for discharge. He will continue to seek placement at another facility; referrals have been sent. He will follow up with his PCP and discharge plan and transport via facility W/C van. CM continues to support Favio's requests re: additional DME, and outreached to BC/BS RNCM as well. CM will continue to support Favio and his family and assess for ongoing discharge needs.
[2021-03-02] MEDS: Simethicone 80 MG CHEW 40 MG PO ×2 (08:51→13:55)
[2021-03-02] MEDS: Psyllium PKT 1 EACH PO (08:52)
[2021-03-02] MEDS: Protein Nutritional Supplement 16 GM 1 OUNCE PACKET PO ×2 (08:52→13:55)
[2021-03-02] MEDS: Pantoprazole 40 MG TABCR PO (08:52)
[2021-03-02] MEDS: Apixaban 5 MG TAB PO (08:53)
[2021-03-02] MEDS: Zinc Sulfate 220 MG TAB PO (08:53)
[2021-03-02] MEDS: DULoxetine 30 MG CAP PO (08:53)
[2021-03-02] MEDS: Ascorbic Acid 500 MG TAB PO (08:54)
[2021-03-02] MEDS: busPIRone 5 MG TAB 10 MG PO ×2 (08:54→13:55)
[2021-03-02] MEDS: Multivitamin w/Minerals TAB 1 TAB PO (08:54)
[2021-03-02] MEDS: Midodrine 2.5 MG TAB 5 MG PO (08:54)
[2021-03-02] MEDS: Lactobacillus Acidophilus CAP 1 CAP PO ×2 (08:54→13:55)
--- NOTE | 2021-03-02 10:38 | PT.INTREAT ---
Date of service: 03/02/21 Time of Service: 09:15 PT Notes Visit Reasons: OBSTIPATION Inpatient Physical Therapy Treatment Note [facility] Date: 03/02/2021 PRECAUTIONS: Quadriplegia C6-C7 SUBJECTIVE: Favio is pleasant and agreeable to participating in PT. He reports that he slept well last night, and that he is feeling okay today. He discusses that he may be interested in listening to audiobooks to pass the time. He also expresses that he wishes that he could go outside. OBJECTIVE: PAIN: Patient c/o L elbow stiffness THEREX: Patient completed a resisted UE strengthening program, including punchouts, bicep curls, punch ups, forearm supination/pronation, rows, PNF D1/D2, foam supervisor contact and service clerks, all completed in chair position in bed. He also completes cervical flexion/extension and lateral bending. Patient was also instructed in trunk flexion with forearm support, as well as lateral trunk bending into pillows. Patient requires assist to reach full ROM and for stability with exercises on L. He utilizes pink foam cube and 2.5# ankle weights on his wrists for resistance with each exercise, excluding forearm supination and rows, during which he utilizes yellow Theraband. Patient requires rest breaks between each exercise due to fatigue. ASSESSMENT: Patient tolerated session well, although with c/o increased muscle fatigue with ther ex. He PLAN: Continue with UE and core strengthening, as tolerated. TREATMENT CODE/TIME: 50 minutes; [id number] x3 (09:15)
[2021-03-02] MEDS: HYDROmorphone 2 MG TAB PO (10:53)
--- NOTE | 2021-03-02 12:41 | W.PM.DS.N ---
Date of service: 03/02/21 Time of Service: 12:41 DS: Diagnosis Discharge Diagnosis (1) Decubitus skin ulcer: Start date: 03/02/21 Start time: 12:42 Status: Acute Asessment and Plan: He came to [facility] from H/R and was found to have deep tissue wounds to both right and left ishial tuberosity, requiring OR debridement revealing visible, tendons, muscle unapproximated wounds and surgery saw bone with question of osteo however when evaluated by myself I did not see bone. MRI ordered to r/o osteo FINDINGS: Bones: There is no fracture or contusion pattern. On the T2 weighted images mild hyperintense signal is seen in both ischial tuberosities, left greater than right. These areas show hypointense signal on the T1 weighted images. The findings are unchanged following contrast administration. There is normal signal in the marrow of the sacrum. Following contrast administration, no enhancing mass is seen. Musculotendinous structures: Mild nonspecific edema is seen in the gluteal muscles bilaterally, right greater than left. There is edema seen in the subcutaneous tissues but no focal fluid collection is seen to suggest an abscess. There is a suprapubic catheter in place. IMPRESSION: No definite evidence to suggest acute osteomyelitis. Wound vac ordered. Due to stooling and multiple amounts of stool, wound vac was not able to stay on initially, however stool decreased and has become more formed. He was receiving wet to dry dressings while trying to control stools, during this time he was being rolled causing him shoulder pain, he was given IV diluadid for pain, but has since been placed on PO dilaudid 30 mins prior to drsg changes with good outcomes. Wound vac has been replaced. At this time he currently is not requiring acute medically attention. He is being transitioned to SB 1 for PT/OT wound care as H/R is requiring prior auth and not sure how soon they will be able to get a wound vac for patient. He will need ostomy in the future to promote wound healing will place referral to [facility] for this and wound clinic to follow treatment of wound. (2) Major depressive disorder: Start date: 03/02/21 Start time: 12:57 Status: Chronic Asessment and Plan: He was started on cymbalta and since his mood has dramatically improved. Continue 30 mg dosing daily (3) Quadriplegia: Start date: 03/02/21 Start time: 12:58 Status: Chronic Asessment and Plan: Since Oct 2020 after falling and sustaining C6 fx. (4) UTI (urinary tract infection): Start date: 03/02/21 Start time: 12:58 Status: Resolved Asessment and Plan: He has a suprapubic he was found to have UTI and treated with levaquin for 7 days he received ceftriaxone 3 days prior to starting levaquin (5) Constipation: Start date: 03/02/21 Start time: 12:59 Status: Chronic Asessment and Plan: Due to neurogenic bowel would benefit from ostomy in future. Will set up referral for [facility]. (6) Neurogenic bladder: Start date: 03/02/21 Start time: 13:04 Status: Chronic Asessment and Plan: Suprapubic in place. above discussed with Dr. Montoya Discharge Plan Disposition Patient Disposition: [facility] SWING BED LEVEL 1 Condition: Stable Discharge Details Reason For Visit: OBSTIPATION Admit Date/Time: 02/22/21 08:10 Admit Provider: Lauri Larry Attending Provider: Lauri Larry [facility] Course: 55 y.o male admitted to [facility] ED for constipation and diarrhea. PMH of quadriplegia since 10/2020 after falling, depression, neurogenic bladder with suprapubic catheter,, RLE DVT. On admission he was found to have a rectal impaction and multiple air-fluid levels on his abdominal CT scan. He also has large decubiti of his buttocks over his rt and left ischial tuberosities. He does not have any sensation from his chest down. He can move his arms some but has little use of his hands. His fingers are mostly numb. He has no sensation of his lower extremities. He has a suprapubic catheter in place. He wants to be transferred to another rehab facility as he says he developed bedsores within 1 week of being admitted to the [facility] and rehab facility. He was admitted to [facility] for further management. Wound care consult placed on admission, concern for necrosis and recommended surgery. Surgery was consulted regarding patient imaging and wounds. He was found to have large necrotic tissues on both sides. Imaging revealed obstipation with overflow incontinence, he was placed on bowel regimen to help promote motility of stool. After trying a couple of days and serial xrays he was taken to OR for csope for disimpaction of stool to prepare him for debridement of bilateral wounds. His apixaban was held and on 02/25 he was taken to OR for wound debridement with subsequent wound vac to be placed. POD 1 patient was again debrided at bedside for more necrotic tissue also revealing muscle, tendon and question of bone with osteo. MRI done osteomylitis r/o. Wound vac was placed on patient however initially he was stooling several times throughout the day and wound vac was not staying in place due to multiple wet stools. He was placed on optimal nutrition by dietary with vitamins and nutrition requirements. Optimal fiber and bowel regimen with goal of soft bowel daily and started on motegrity for Neurogenic bowel. His bowels slowed and wound vac was applied. He was also treated for UTI. E. Coli by culture. 10 days. Medically he is cleared. He would benefit from ostomy sooner than later to help maximize wound healing and for further prevention. He also has and arjo bed to help with wound healing. He was going to return to H/R on Thursday but they are unsure when they will be able to obtain a wound vac and they need to get preauth therefore he is transitioning to SB level 1 for PT/OT wound care. Will also place referral to [facility] for ostomy and on d/c he will need to follow up with Wound care clinic as outpatient. He denies CP, SOB, N/V/D Home Meds and New Rx's Prescriptions: No Action acetaminophen 500 mg capsule 1,000 mg PO Q8H PRN PRNRF: 0 albuterol sulfate 90 mcg/actuation aerosol powdr breath activated 2 inh inhalation Q4H PRNRF: 0 apixaban 5 mg tablet 5 mg PO BID RF: 0 buspirone 10 mg tablet 10 mg PO TID RF: 0 docusate sodium [Colace] 100 mg capsule 100 mg PO BID RF: 0 bisacodyl [Dulcolax (bisacodyl)] 10 mg suppository 10 mg ND DAILY PRNRF: 0 Lactobacillus acidoph-L.bulgar [Floranex] 1 million cell tablet 1 tab PO TID RF: 0 lactulose 20 gram/30 mL solution 30 ml PO DAILY RF: 0 magnesium hydroxide 400 mg/5 mL suspension 30 ml PO DAILY PRNRF: 0 melatonin 5 mg tablet 5 mg PO HS PRNRF: 0 midodrine 2.5 mg tablet 5 mg PO BID RF: 0 polyethylene glycol 3350 [Miralax] 17 gram/dose powder 17 g PO DAILY RF: 0 mirtazapine 45 mg tablet 45 mg PO QHS RF: 0 phenyleph-shark nir-akjo-pcm Cream 1 applic ND Q6H PRNRF: 0 senna 8.6 mg capsule 17.2 mg PO BID RF: 0 tizanidine 2 mg capsule 4 mg PO Q6H PRNRF: 0 diclofenac sodium [Voltaren] 1 % gel 1 applic topical Q6H PRNRF: 0 baclofen 5 mg Tablet 5 mg PO Q6H PRNRF: 0 Fleet Enema 19-7 gram/118 mL Enema 118 ml ND PRN PRNRF: 0 ondansetron HCl [Zofran] 4 mg Tablet 4 mg PO Q8H PRNRF: 0 zolpidem 5 mg Tablet 5 mg PO HS RF: 0 Discharge Instructions Additional Instructions: Transition to SB level 1 Activity:: Activity as Tolerated Equipment/Supplies:: special bed Diet:: As Tolerated Discharge Orders Discharge Orders: Discharge Order (Routine); Ordered 03/02/21 Ordered By: Eliane Tolliver DS: Summary Time Spent with Patient providing and/or coordinating discharge services: Greater than 30 minutes (approx 60 mins) Status at Discharge Functional status at discharge: bed bound Overall status at discharge: patient is not back to baseline Mental Status: mental status grossly normal Speech and Movement: speech and movement normal Mood: congruent mood Affect: blunted Exam Narrative Exam Narrative: Alert and oriented. Const General: cooperative and no acute distress [facility] Head: normal to inspection Ears: hearing grossly normal bilaterally Eyes General: appearance normal, both eyes and all related structures Neck Neck: normal visual inspection Lymphatic: no lymphadenopathy noted Chest Chest: normal inspection of the chest Resp Effort & Inspection: normal respiratory effort Auscultation: clear to auscultation bilaterally Cardio Rhythm: regular rhythm Heart Sounds: S1 normal and S2 normal GI Inspection: normal to inspection Palpation: no hepatosplenomegaly Skin Other: wound to sacral with wound vac in place. unable to visualize Neuro General: patient alert, patient awake and patient oriented x3 Cranial Nerves: PERRL and no nystagmus Cognition: normal cognition Extrem General: abnormal ROM (bilateral lower extremity paralysis, flacid, denies sensation) and muscle atrophy Psych Appearance: grossly normal Mental Status: mental status grossly normal Speech and Movement: speech and movement normal Mood: congruent mood Affect: blunted Attitude: avoids eye contact DS: Data Vitals/I&O Vitals and I&O: Vital Signs Temperature 36.6 C 03/02/21 07:42 Temperature Source Temporal Artery Scan 03/02/21 07:42 Pulse 78 03/02/21 07:42 Pulse Rhythm Regular 03/02/21 10:23 Pulse 83 02/20/21 19:20 Respiratory Rate 18 03/02/21 07:42 Respiratory Effort Non-Labored 03/02/21 10:23 Respiratory Depth Normal 03/02/21 10:23 Respiratory Pattern Normal 03/02/21 10:23 Blood Pressure 151/80 H 03/02/21 07:42 Blood Pressure Mean 64 02/20/21 19:16 Blood Pressure Position Supine 02/20/21 16:24 Pulse Oximetry 98 03/02/21 07:42 Oxygen Delivery Method Room Air 03/02/21 07:42 Oxygen Flow Rate 0 03/02/21 07:42 Pain Level 0 03/02/21 07:42 Comment 02/20/21 16:24 Intake & Output 03/01/21 03/02/21 03/02/21 23:59 11:59 23:59 Intake Total 780 / 1270 520 / 520 Output Total 1625 / 2350 1475 / 1475 Balance -845 / -1080 -955 / -955 Intake: Oral 780 / 1260 520 / 520 Output: Urine 1625 / 2350 1475 / 1475 Other: Urine Color Yellow Yellow Urine Appearance Clear Clear Comment line care provided Stool Size Moderate Stool Characteristics Soft Formed Brown Data Completed and Pending Completed studies during hospitalization [Text1]: Exam(s) a CT:CT abdomen & pelvis w EXAM: CT ABDOMEN PELVIS W CLINICAL HISTORY: diarrhea, quad. TECHNIQUE: Imaging Protocol: Axial computed tomography images with coronal and sagittal reformatted images were created and reviewed CONTRAST MATERIAL: Intravenous: [id number] Oral: None COMPARISON: CT CT CHEST/ABD/PEL W from 10/26/2020 FINDINGS: VISUALIZED LUNG BASES: Mild increased markings both lung bases. No pleural effusions.. No pericardial effusion. ABDOMEN: There is no ascites. LIVER: There are no focal hepatic lesions evident . GALLBLADDER/BILIARY: Mildly distended gallbladder. No no gallstones seen. No gallbladder wall edema or pericholecystic fluid. CBD is not dilated. PANCREAS: No evidence of pancreatic mass nor dilatation of the pancreatic duct. SPLEEN: Spleen is not enlarged. No obvious intrasplenic lesions. Splenic and portal veins are patent. ADRENALS: There are no significant adrenal masses. KIDNEYS:No cysts evident. No solid renal masses. No calculi nor hydronephrosis.. ABDOMINAL AORTA: Some atherosclerotic disease. No aneurysm. LYMPH NODES:There is no retroperitineal nor paraaortic adenopathy. ABDOMINAL WALL/GI: No evidence of significant anterior abdominal wall hernia. There is a suprapubic catheter in the urinary bladder. There is abundant fecal material in the rectum which is somewhat distended. Dilated small and large bowel loops above this level evident consistent with element probable fecal impaction PELVIS: GI: No evidence of appendicitis.No evidence of sigmoid diverticulitis. LYMPH NODES: No intrapelvic adenopathy. Shotty lymph nodes are noted in both groins. REPRODUCTIVE: Prostate not enlarged URINARY BLADDER: Suprapubic catheter in satisfactory position. OSSEOUS: There is dystrophic calcification around the right hip. In addition, there is soft tissue edema over both buttocks which are partially included in the field of view. The subjacent ischial tuberosities appear intact with no evidence of osteomyelitis. IMPRESSION: 1. There is fecal rectal impaction with significant dilatation of the colon and small bowel. Consistent with element of obstruction due to the fecal impaction. 2. There is subcutaneous soft tissue infiltration in both gluteal regions without evidence of subjacent osteomyelitis in the ischial tuberosities. Although there are no discrete ulcers in the field of view of this study, recommend direct clinical observation. 3. Dystrophic calcifications seen around the right hip which can be seen in the setting of chronic nonambulatory status. There is no osseous destruction of the femoral head and neck. 4. There is a suprapubic catheter which appears to be well positioned in the urinary bladder. Bladder is not distended. Exam(s) a RAD:XR shoulder LT complete 2+V EXAM: XR SHOULDER LT COMPLETE 2+V CLINICAL HISTORY: left shoulder pain. TECHNIQUE: 2D digital imaging was performed. COMPARISON: No exams were available for comparison FINDINGS: There is no evidence of fracture or dislocation. No abnormal soft tissue calcifications. There are moderate degenerative changes in the glenohumeral joint. Mild degenerative changes in the AC joint. Subacromial space is not diminished. No osseous lesions. IMPRESSION: Exam(s) a RAD:XR abdomen flat & upright EXAM: 2D digital imaging was performed. CLINICAL HISTORY: constipation. COMPARISON: CT CT ABDOMEN PELVIS W from 02/20/[address] ABDOMEN PELVIS W from 02/20/2021 TECHNIQUE: Supine and upright views of the abdomen was performed. Portable examination FINDINGS: Exam is somewhat limited by portable technique and patient immobility. The visualized portions of the lung bases are clear. No free air seen. There is dilatation of the stomach and colon. No small bowel dilatation is visible. The findings appear to have improved when compared with the previous exam.. Stool is seen throughout the colon. Stool is no longer present in the rectum CALCIFICATIONS: No radiopaque calcifications are visible. OSSEOUS STRUCTURES: Degenerative disc changes. OTHER FINDINGS: None. IMPRESSION: 1. Improvement in colonic distension. No small bowel distention or free air. Exam(s) a RAD:XR abdomen flat & upright EXAM: XR ABDOMEN FLAT UPRIGHT CLINICAL HISTORY: obsitpation. TECHNIQUE: 2D digital imaging was performed. COMPARISON: CR XR ABDOMEN FLAT UPRIGHT from 02/22/2021 FINDINGS: Visualized lung bases are clear. On the upright view there is no free air. No obvious bowel obstruction. Air is seen throughout small bowel loops and there also appears to be some air in the colon. Stomach appears slightly distended. Exam(s) a MRI:MR pelvis wo/w Exam(s) MR PELVIS WO/W EXAM: MR PELVIS WO/W CLINICAL HISTORY: r/o osteo,SKIN ULCER,WOUND TECHNIQUE: Multiplanar multisequence MRI of Pelvis was performed. CONTRAST MATERIAL: IV Contrast: 19 mL of Dotarem contrast administered. COMPARISON: CT CT ABDOMEN PELVIS WO from 02/24/2021 FINDINGS: Bones: There is no fracture or contusion pattern. On the T2 weighted images mild hyperintense signal is seen in both ischial tuberosities, left greater than right. These areas show hypointense signal on the T1 weighted images. The findings are unchanged following contrast administration. There is normal signal in the marrow of the sacrum. Following contrast administration, no enhancing mass is seen. Musculotendinous structures: Mild nonspecific edema is seen in the gluteal muscles bilaterally, right greater than left. There is edema seen in the subcutaneous tissues but no focal fluid collection is seen to suggest an abscess. There is a suprapubic catheter in place. IMPRESSION: No definite evidence to suggest acute osteomyelitis. Results of this exam have been verbally communicated with provider. Exam(s) a RAD:XR abdomen flat plate EXAM: XR ABDOMEN FLAT PLATE CLINICAL HISTORY: follow up gaseous distention of bowel. TECHNIQUE: 2D digital imaging was performed. COMPARISON: CR,XR XR ABDOMEN FLAT PLATE from 02/24/2021 FINDINGS: Again noted is abundant air throughout the bowel loops, similar to previous. Streaking is again noted in the soft tissues of the buttocks. No obvious radiographic evidence of osteomyelitis. Exam(s) a RAD:XR abdomen flat plate EXAM: XR ABDOMEN FLAT PLATE CLINICAL HISTORY: consitpation. TECHNIQUE: 2D digital imaging was performed. COMPARISON: No exams were available for comparison FINDINGS: Portable supine views of the abdomen reveal multiple air-fluid small and large bowel loops. Subtle suggestion of possible free air on the supine view. Recommend upright image. Is also air-gas in soft tissues lateral to the right side of the pelvis. IMPRESSION: Multiple air-filled bowel loops throughout the abdomen and pelvis. Possible free air in addition to air within the soft tissues lateral to the right pelvis. Labs on day of discharge: Labs from last 24 hours 03/02/21 03/02/21 06:05 06:05 WBC 9.49 RBC 3.53 L Hgb 9.5 L Hct 30.4 L MCV 86.1 MCH 26.9 L MCHC 31.3 L RDW 13.5 Plt Count 409 H MPV 9.4 Immature Gran % 0.9 Neutrophils % 66.8 Lymphocytes % 21.5 Monocytes % 7.4 Eosinophils % 3.1 Basophils % 0.3 Nucleated RBC % 0 Absolute Neutrophils 6.34 Absolute Lymphocytes 2.04 Absolute Monocytes 0.70 Absolute Eosinophils 0.29 Absolute Basophils 0.03 Sodium 140 Potassium 4.2 Chloride 102 Carbon Dioxide 27.1 Anion Gap 10.9 BUN 27 H Creatinine 0.9 Estimated GFR/1.73 m2 >= 60.00 Glucose 94 Calcium 9.6 [facility] Medical History Acute embolism and thrombosis of deep vein of right lower extremity Anxiety disorder C. difficile colitis Dislocation of C6/C7 cervical vertebrae Fall down embankment Fusion of spine Hypotension Major depressive disorder Neurogenic bladder Quadriplegia Social History Smoking/Tobacco Use Status: Never Smoking risk assessment performed?: Yes Alcohol Intake: current Alcohol Intake frequency: a few times a week Drug use: Occasionally Substance use type: marijuana Do you feel safe at home: Yes Do you feel safe in your relationship?: Yes
[2021-03-02] MEDS: levoFLOXacin 500 MG, levoFLOXacin 250 MG 750 MG PO (13:55)
--- NOTE | 2021-03-04 07:42 | OTDS_ITS ---
Date of service: 03/04/21 Time of Service: 07:42 Occupational Therapy Notes Occupational Therapy Inpatient Discharge Summary Date: 03/04/21 Dates of Service: 02/26/21-03/01/21 Referring Doctor:Wendy Skinner NP OT Orders: Non-Urgent Precautions: Full, Fall, Standard PATIENT PROFILE/ADMITTING DIAGNOSIS: Pt is a 55 year old male who presented to the ED from SNF for the following dx of major depressive disorder, quaridplegia, UTI, decubitus skin ulcer, constipation, and neurogenic bladder. Past Medical History: Medical History (Updated 02/20/21 @ 22:10 by Lauri Larry MD) Acute embolism and thrombosis of deep vein of right lower extremity Anxiety disorder C. difficile colitis Dislocation of C6/C7 cervical vertebrae Fall down embankment Fusion of spine Hypotension Major depressive disorder Neurogenic bladder Quadriplegia Social History/Home Situation: Pt currently residing at SNF where his DME needs are met. He is functionally requiring what he reports as Max (A) for everything. He can perform his eating routines although notes that its a mess for him and he gets everything all over him. He would like to have better function of his (B) UE. His hands are currently in a contracted position which is bothersome to him. Equipment owned/DME: DME needs met by SNF SUBJECTIVE: NT OBJECTIVE: ROM: RUE shoulder flexion minimal, elbow WFL, wrist extension is fair, digits in contracted position L UE shoulder flexion minimal, elbow WFL, wrist extension is fair, digits in contracted position STRENGTH: RUE Traffic Line Painter strength is weak LUE Traffic Line Painter strength is weak SENSATION: decreased sensation in (B) FUNCTIONAL MOBILITY/ADLS: BATHING Max (A) DRESSING Max (A) GROOMING Pt is able to bring hand to mouth for brushing his teeth but he requires (A) his lack of (B) UE strength limits his success in performance. TOILETING Max (A) EATING Max (A) at most times, is able to perform for limited time with adaptive equipment. BALANCE: Static sitting Good Dynamic Sitting Good ASSESSMENT: Patient is a 55-year-old male referred to occupational therapy services with diagnosis of major depressive disorder, quaridplegia, UTI, decubitus skin ulcer, constipation, neurogenic bladder. Pt was seen for 3 skilled OT sessions and then was admitted under [facility] B1 rehabilitation status, OT will re-evaluate under [facility] B1 level of care. GOALS- not met 1. Grooming- pt will be mod (I) with brushing his teeth with mod vc throughout 2. Dressing- Pt will be mod (A) with don and doffing shirt 3. Bathing- pt will be able to (I) wash his face and (B) UE 4. Eating- with adaptive equipment pt will be (I) with eating and wiping his face PLAN OF CARE/TREATMENT PLAN: Discharge to [facility] and reassess and evaluate under [facility] level of care. DISCHARGE RECOMMENDATIONS Return to SNF vs. Home with 24 hour care givers. TREATMENT TIME/MINUTES/CODES N/A Michelle Pearce, OTR/L [facility]
== END 2021-03-02 14:06 | disposition swing bed (61) | DRG 356 ==
LOC: ER 21:49 → MS 22:20
PROVIDERS: Nurse Practitioner Acute Care; Nurse Practitioner Family; Surgery; Admitting Provider Family Medicine; Emergency Provider Physician Assistant; PCP Nurse Practitioner Family; Visit Provider Family Medicine
PROC: 0JB90ZZ Excision of Buttock Subcutaneous Tissue and Fascia, Open Approach (ICD-10-PCS; CPT 45332; principal; 2021-02-25 10:15)
PROC: 0DJD8ZZ Inspection of Lower Intestinal Tract, Via Natural or Artificial Opening Endoscopic (ICD-10-PCS; CPT 45330; 2021-02-25 10:15)
DX: K59.00 Constipation, unspecified (principal); L89.324 Pressure ulcer of left buttock, stage 4; G82.54 Quadriplegia, C5-C7 incomplete; N39.0 Urinary tract infection, site not specified; Z86.718 Personal history of other venous thrombosis and embolism; F41.9 Anxiety disorder, unspecified; I95.9 Hypotension, unspecified; F32.9 Major depressive disorder, single episode, unspecified; N31.8 Other neuromuscular dysfunction of bladder; Z93.51 Cutaneous-vesicostomy status; S14.156S Other incomplete lesion at C6 level of cervical spinal cord, sequela; W19.XXXS Unspecified fall, sequela; L89.890 Pressure ulcer of other site, unstageable; Z20.822 Contact with and (suspected) exposure to COVID-19; L89.310 Pressure ulcer of right buttock, unstageable; D64.9 Anemia, unspecified
CPT/HCPCS: 97597; 45332; 11042 ×2; 36415; 72197; 80048; 80053; 83690; 87077; 87493; 87505; 87635; 93005; 96361; 96374; 97110; 97140; 97162; 97166; 97530; 97535; 99223; 99225; 99232; 99233; 99253; 99285; 73030; 74018; 74019; 74176; 74177; 81003; 81015; 82040; 82607; 82728; 83540; 83550; 83605; 83735; 84134; 84439; 84443; 85025; 86140; 87086; 87186; 88304; 93010; 94667; 99220; 99239; 99284; G0378; J0696; J2250; J2704; J2765; J3475

== ENCOUNTER 2021-03-02 14:07 | Inpatient (IN) | payer BC, SELFPAY ==
--- NOTE | 2021-03-02 14:29 | NUR.NOTE ---
Nursing Note: Patient is now a swing bed for continued PT , OT, and wound treatment. Patient verbalized that he is fine with this choice
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
--- NOTE | 2021-03-02 15:10 | CM.SWINGPC ---
<Prisca Bal - Last Filed: 03/02/21 15:10> Swingbed Plan of Care Plan of care: SWING BED PROGRAM ACTIVITIES/DISCHARGE PLAN OF CARE ACTIVITIES PLAN Date: Identified Need: Intervention/Plan: Initials DISCHARGE PLAN Date: Identified Need: Intervention/Plan: Initials <Annette Loya - Last Filed: 03/05/21 14:06> - If Service Date Differs Date of service: 03/04/21 Time of Service: 14:00 Swingbed Plan of Care Plan of care: SWING BED PROGRAM ACTIVITIES/DISCHARGE PLAN OF CARE ACTIVITIES PLAN Date: 03/04/21 Identified Need: individualized activity plan Intervention/Plan: Favio enjoys using his tablet and talking on the phone. He requires assistance with set up and placing calls but does well with these devices otherwise. Favio occasionally likes to watch television. He most enjoys talking with and interacting with staff and family. If pet therapy or music therapy becomes available, he would likely request to participate. Initials [facility] [place]GE PLAN Date: 03/04/21 Identified Need: Safe Discharge Plan Intervention/Plan: Favio will likely be discharged back to [facility] when prior insurance authorization is received. He is currently seeking placement elsewhere and would prefer to go to an intensive rehab hospital. Referrals have been sent by to [facility] as well as [facility] in [place]. will continue to support Favio and his discharge planning needs. Initials: [facility]
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
[2021-03-02 15:46] VITALS: BP 143/87; PULSE 94; RESP 18; TEMP 37.1; O2SAT 98
[2021-03-02] MEDS: Simethicone 80 MG CHEW 40 MG PO (17:52)
[2021-03-02] MEDS: Protein Nutritional Supplement 16 GM 1 OUNCE PACKET PO (21:32)
[2021-03-02] MEDS: Zolpidem 10 MG TAB PO (21:33)
[2021-03-02] MEDS: busPIRone 5 MG TAB 10 MG PO (21:33)
[2021-03-02] MEDS: Lactobacillus Acidophilus CAP 1 CAP PO (21:33)
[2021-03-02] MEDS: Ascorbic Acid 500 MG TAB PO (21:33)
[2021-03-02] MEDS: Mirtazapine 15 MG TAB 30 MG PO (21:33)
[2021-03-02] MEDS: Apixaban 5 MG TAB PO (21:33)
[2021-03-02] MEDS: Midodrine 2.5 MG TAB 5 MG PO (21:34)
[2021-03-02] MEDS: Melatonin 3 MG TAB 6 MG PO (21:34)
[2021-03-02 23:16] VITALS: BP 91/58; PULSE 83; RESP 19; TEMP 37.3; O2SAT 93
[2021-03-03 07:14] VITALS: BP 108/72; PULSE 83; RESP 17; TEMP 36.9; O2SAT 96
[2021-03-03] MEDS: Psyllium PKT 1 EACH PO (08:15)
[2021-03-03] MEDS: Multivitamin w/Minerals TAB 1 TAB PO (08:15)
[2021-03-03] MEDS: Lactobacillus Acidophilus CAP 1 CAP PO ×3 (08:15→19:39)
[2021-03-03] MEDS: Protein Nutritional Supplement 16 GM 1 OUNCE PACKET PO ×3 (08:15→19:38)
[2021-03-03] MEDS: DULoxetine 30 MG CAP PO (08:15)
[2021-03-03] MEDS: busPIRone 5 MG TAB 10 MG PO ×3 (08:15→19:38)
[2021-03-03] MEDS: Midodrine 2.5 MG TAB 5 MG PO ×2 (08:16→19:38)
[2021-03-03] MEDS: Zinc Sulfate 220 MG TAB PO (08:16)
[2021-03-03] MEDS: Simethicone 80 MG CHEW 40 MG PO ×3 (08:16→18:17)
[2021-03-03] MEDS: Pantoprazole 40 MG TABCR PO (08:16)
[2021-03-03] MEDS: Ascorbic Acid 500 MG TAB PO ×2 (08:16→19:39)
[2021-03-03] MEDS: Apixaban 5 MG TAB PO ×2 (08:16→19:39)
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
[2021-03-03 15:16] VITALS: BP 156/94; PULSE 82; RESP 18; TEMP 36.6; O2SAT 97
[2021-03-03] MEDS: Mirtazapine 15 MG TAB 30 MG PO (21:05)
[2021-03-03] MEDS: Melatonin 3 MG TAB 6 MG PO (21:05)
[2021-03-03] MEDS: Zolpidem 10 MG TAB PO (21:05)
[2021-03-03 23:26] VITALS: BP 113/77; PULSE 86; RESP 17; TEMP 36.9; O2SAT 95
[2021-03-04 07:18] VITALS: BP 145/88; PULSE 73; RESP 20; TEMP 36; O2SAT 98
[2021-03-04] MEDS: Protein Nutritional Supplement 16 GM 1 OUNCE PACKET PO ×3 (07:47→20:03)
[2021-03-04] MEDS: Psyllium PKT 1 EACH PO (07:47)
[2021-03-04] MEDS: Apixaban 5 MG TAB PO ×2 (07:48→20:04)
[2021-03-04] MEDS: Midodrine 2.5 MG TAB 5 MG PO ×2 (07:48→20:04)
[2021-03-04] MEDS: Zinc Sulfate 220 MG TAB PO (07:48)
[2021-03-04] MEDS: Multivitamin w/Minerals TAB 1 TAB PO (07:48)
[2021-03-04] MEDS: Lactobacillus Acidophilus CAP 1 CAP PO ×3 (07:48→20:04)
[2021-03-04] MEDS: Pantoprazole 40 MG TABCR PO (07:48)
[2021-03-04] MEDS: Ascorbic Acid 500 MG TAB PO ×2 (07:48→20:04)
[2021-03-04] MEDS: DULoxetine 30 MG CAP PO (07:48)
[2021-03-04] MEDS: busPIRone 5 MG TAB 10 MG PO ×3 (07:48→20:04)
--- NOTE | 2021-03-04 09:01 | OTIE_ITS ---
Occupational Therapy Notes Inpatient Occupational Therapy [facility] B1 Evaluation Date: 03/04/21 Referring Doctor:Wendy Skinner NP OT Orders: Non-Urgent Precautions: Full, Fall, Standard PATIENT PROFILE/ADMITTING DIAGNOSIS: Pt is a 55 year old male who presented to the ED from SNF for the following dx of major depressive disorder, quaridplegia, UTI, decubitus skin ulcers, constipation, and neurogenic bladder. He is re- evaluated at todays session under [facility] B1 level of care. Past Medical History: Medical History (Updated 02/20/21 @ 22:10 by Lauri Larry MD) Acute embolism and thrombosis of deep vein of right lower extremity Anxiety disorder C. difficile colitis Dislocation of C6/C7 cervical vertebrae Fall down embankment Fusion of spine Hypotension Major depressive disorder Neurogenic bladder Quadriplegia Social History/Home Situation: Pt currently residing at SNF where his DME needs are met. He is functionally requiring what he reports as Max (A) for everything. He can perform his eating routines although notes that its a mess for him and he gets everything all over him. He would like to have better function of his (B) UE. His hands are currently in a contracted position which is bothersome to him. Equipment owned/DME: DME needs met by SNF SUBJECTIVE: Pt was lying in bed when OT arrived, he is agreeable to OT Session and states that his hands are more relaxed then they have been in the past. OBJECTIVE: General Observation: Pleasant and appropriate, IV (R) UE not connected, pereyra in place, ulcers present in lower back, feet propped in bed for comfort and pain Mental Status: A&Ox3 Pain: pain in digits in the extended position ROM: RUE shoulder flexion minimal, elbow WFL, wrist extension is fair, digits in contracted position L UE shoulder flexion minimal, elbow WFL, wrist extension is fair, digits in contracted position STRENGTH: RUE Glove Turner And Former Automatic strength is weak LUE Glove Turner And Former Automatic strength is weak SENSATION: decreased sensation in (B) Manual Therapy [id number]: OT measured pt for fabrication of (B) resting hand splints to keep digits out of contracted position. Then OT performed IASTM with doen regulation and PROM to pts digits into flexion and extension which pt was able to tolerate with decreased tone and minimal pain. OT perform AP mobs to pts digits to facilitate an increased functional use of his (B) hands to be more (I) in his ADL/IADL Routines. FUNCTIONAL MOBILITY/ADLS: BATHING Pt has functional ROM to wash his face, not enough strength to perform this without (A) DRESSING Max (A) GROOMING Pt is able to bring hand to mouth for brushing his teeth but he requires (A) his lack of (B) UE strength limits his success in performance. TOILETING Max (A) EATING NT at todays session- OT continues to recommend adaptive equipment BALANCE: Static sitting Good Dynamic Sitting Good SPECIAL TESTS: Daily Activity Limitations Standardized Measure [facility] AM -PAC ?6 clicks? Daily Activity Inpatient Short Form: Raw score: 7 Standardized score: 20.13 CMS score: 92.44% INFORMED CONSENT/EDUCATION: Pt instructed in purpose of OT Consult and plan of care. ASSESSMENT: Patient is a 55-year-old male referred to occupational therapy services with diagnosis of major depressive disorder, quaridplegia, UTI, decubitus skin ulcer, constipation, neurogenic bladder. Patient presents with clinical signs and symptoms consistent with dx, as demonstrated by the following impairment level findings/functional limitations: Pt requires max (A) for most ADL/IADL routines, he has contracted position of his digits and decreased functional activity tolerance due to fatigue. Decreased sensation in (B) UE and inability to perform his functional mobility (I) without (A). He was discharged from acute level of care and is currently being seen under [facility] B1 level of care at this time. AMPAC score 7 Patient is assessed as a Moderate 95537 complexity based on the following: History: see above Examination: see functional limitations as noted above Presentation: evolving Decision Making: AMPAC score 7, CMS 92.44% GOALS Goals x1 week 1. Grooming- pt will be mod (I) with brushing his teeth with mod vc throughout 2. Dressing- Pt will be mod (A) with don and doffing shirt 3. Bathing- pt will be able to (I) wash his face and (B) UE 4. Eating- with adaptive equipment pt will be (I) with eating and wiping his face PLAN OF CARE/TREATMENT PLAN: 1x/day, 5 days/ week x 1week Initiate Occupational Therapy Services for bathing, dressing, grooming, toileting, eating, transfer training. DISCHARGE RECOMMENDATIONS Return to SNF vs. Home with 24 hour care givers. TREATMENT TIME/MINUTES/CODES 74737, [id number], 25 minutes (08:30) Michelle Pearce, OTR/L [facility]
[2021-03-04] MEDS: Simethicone 80 MG CHEW 40 MG PO ×3 (09:10→20:04)
[2021-03-04] MEDS: HYDROmorphone 2 MG TAB PO (12:54)
[2021-03-04 15:31] VITALS: BP 119/68; PULSE 89; RESP 18; TEMP 37.2; O2SAT 94
--- NOTE | 2021-03-04 17:58 | NUR.NOTE ---
brought patient's dinner tray into room. patient ordered a sandwich for dinner, and patient stated that he was able to eat that without assistance. at that time patient was in the middle of a phone call and wasn't ready to eat dinner yet. checked back in with patient, as did nurse peterson, and patient states he is not ready for dinner at this time. Nursing Note:
[2021-03-04] MEDS: Melatonin 3 MG TAB 6 MG PO (21:18)
[2021-03-04] MEDS: Mirtazapine 15 MG TAB 30 MG PO (21:18)
[2021-03-04] MEDS: Zolpidem 10 MG TAB PO (21:18)
[2021-03-05 07:43] VITALS: BP 118/73; PULSE 89; RESP 17; TEMP 36.9; O2SAT 99
[2021-03-05] MEDS: Pantoprazole 40 MG TABCR PO (07:48)
[2021-03-05] MEDS: Lactobacillus Acidophilus CAP 1 CAP PO ×3 (07:48→20:47)
[2021-03-05] MEDS: Zinc Sulfate 220 MG TAB PO (07:48)
[2021-03-05] MEDS: DULoxetine 30 MG CAP PO (07:48)
[2021-03-05] MEDS: Protein Nutritional Supplement 16 GM 1 OUNCE PACKET PO ×3 (07:48→20:47)
[2021-03-05] MEDS: Ascorbic Acid 500 MG TAB PO ×2 (07:48→20:48)
[2021-03-05] MEDS: Apixaban 5 MG TAB PO ×2 (07:48→20:48)
[2021-03-05] MEDS: Psyllium PKT 1 EACH PO (07:48)
[2021-03-05] MEDS: Multivitamin w/Minerals TAB 1 TAB PO (07:49)
[2021-03-05] MEDS: Midodrine 2.5 MG TAB 5 MG PO ×2 (07:49→20:47)
[2021-03-05] MEDS: busPIRone 5 MG TAB 10 MG PO ×3 (07:49→20:48)
--- NOTE | 2021-03-05 09:26 | OT.INTREAT ---
Date of service: 03/05/21 Time of Service: 08:25 Occupational Therapy Notes Occupational Therapy Inpatient Treatment Note Date: 03/05/21 PRECAUTIONS: Fall, standard, Full SUBJECTIVE: Pt was lying in bed when OT arrived, He has a pretty significant cough this morning which RN is aware of. Pt reports that this is normal for him and states that it will go away soon. OBJECTIVE: PAIN:c/o pain throughout body and with spasms that occur randomly in any position that he is in. Manual Therapy [id number]: OT performed joint blocking techniques and manual mobilization to pts (B) UE at MP, IP and DIP as well as PROM to pts (B) thumbs into flexion. He is tolerating this well and with use of tool OT performed IASTM with down regulation on dorsal aspect of digits. OT passively mobilized pts (B) wrists into flexion and extension which he had some pain at end ranges. His tendons are tight. OT was able to again achieve full ROM of pts digits into extension with no pain. OT fit pt with (B) custom thermoplastic orthosis to place pt in resting hand position to decrease risk of contracture. OT will monitor pts response to todays session and progress accordingly. ASSESSMENT/PLAN: Plan is to continue to prevent contractures in pts (B) UE, OT will work with pt on gross motor control of his arms and increase his functional (I) in his ADL/IADL routines. TREATMENT CODES/TIME: [id number], 30 minutes (08:25) [facility]
[2021-03-05] MEDS: Simethicone 80 MG CHEW 40 MG PO ×3 (09:35→20:48)
[2021-03-05] MEDS: HYDROmorphone 2 MG TAB PO (13:20)
--- NOTE | 2021-03-05 15:09 | PT.INTREAT ---
Date of service: 03/04/21 Time of Service: 15:09 PT Notes Visit Reasons: DECUBITIS ULCERS, QUADRAPLEGIC Inpatient Physical Therapy Treatment Note Date: 03/04/2021 Precautions: High risk for skin breakdown. Plegic in B LE, paretic in B UE. Wound vacuum to sacral decubiti. Hand splints on for 2 hours, off for 30 minutes or for exercises. Subjective: Favio continues to wonder about his motorized wheelchair arrival. Reports increased pain and discomfort in L shoulder with exercises. Complains of stiffness in B shoulders. Objective: General Observation: Supine in bed. Catheter in place. B finger in splints to provide passive stretch to B finger extensors. Wound vaccum to sacral decubiti. New skin redness overlying R 5th MTP joint on the lateral and plantar aspect as well as lateral aspect of 5th DIP joint seen on B sides. Nurse Anitra made aware. Mental Status: A&Ox4. Pain: Increasing stiffness on L shoulder that persisted throughout L shoulder exercises THERA EX: Continued with activities and exercises to increase B UE strength utilizing PNF techniques to increase motor control in B UE and minimize contracture formation in B LE. Facilitated sitting alignment awareness with bed set to sitting feature during thera ex activity. Please refer to exercise sheet for detailed exercise activity given to patient today. Positioning strategies to minimize PF contracture and new skin breakdown continue to be done as well. Assessment: Nurse Ayoub made aware of new reddend areas as mentioned above. Will detemine the benefit of using electrical stimulation to facilitate improvemetn inmotr control in B UE. Incomplete C6-C7 quadriplegia. Paretic in B UE, complete paralysis in B LE. Intact as to pain and light touch up to T6 dermatomal level. Functional grasp limited to tenodesis effect at this time. B finger flexion contacture being managed well by OT. PT plan of care focus on preventing contracture formation, improving B UE myotomal strength in anticipation of independent motorized wheelchair operation using B UE or neck activation as appropriate. DISCHARGE RECOMMENDATIONS: Return to SNF with wheelchair positioning/management and contracture prevention program. TREATMENT CODE/TIME: 73695 x 46 minutes beginning at 15:09 PM.
[2021-03-05] MEDS: Diclofenac 1% Gel 100 GM TUBE TP ×2 (16:57→21:32)
[2021-03-05 17:00] VITALS: BP 121/76; PULSE 80; RESP 18; TEMP 37.2; O2SAT 97
[2021-03-05] MEDS: Melatonin 3 MG TAB 6 MG PO (21:29)
[2021-03-05] MEDS: Mirtazapine 15 MG TAB 30 MG PO (21:29)
[2021-03-05] MEDS: Zolpidem 10 MG TAB PO (21:29)
[2021-03-05 23:51] VITALS: BP 145/85; PULSE 81; RESP 17; TEMP 37.1; O2SAT 96
[2021-03-06] VITALS (7 sets, daily range): BP systolic 120–165; BP diastolic 76–89; PULSE 74–99; RESP 17–18; TEMP 36.9–38.1; O2SAT 96–98
[2021-03-06] MEDS: Lactobacillus Acidophilus CAP 1 CAP PO ×3 (08:36→20:26)
[2021-03-06] MEDS: Protein Nutritional Supplement 16 GM 1 OUNCE PACKET PO ×3 (08:36→20:27)
[2021-03-06] MEDS: busPIRone 5 MG TAB 10 MG PO ×3 (08:36→20:25)
[2021-03-06] MEDS: Psyllium PKT 1 EACH PO (08:36)
[2021-03-06] MEDS: Midodrine 2.5 MG TAB 5 MG PO ×2 (08:36→20:24)
[2021-03-06] MEDS: Multivitamin w/Minerals TAB 1 TAB PO (08:36)
[2021-03-06] MEDS: Zinc Sulfate 220 MG TAB PO (08:37)
[2021-03-06] MEDS: DULoxetine 30 MG CAP PO (08:37)
[2021-03-06] MEDS: Ascorbic Acid 500 MG TAB PO ×2 (08:37→20:24)
[2021-03-06] MEDS: Simethicone 80 MG CHEW 40 MG PO ×3 (08:37→17:19)
[2021-03-06] MEDS: Apixaban 5 MG TAB PO ×2 (08:37→20:26)
[2021-03-06] MEDS: Pantoprazole 40 MG TABCR PO (08:37)
--- NOTE | 2021-03-06 09:37 | OT.INTREAT ---
Date of service: 03/06/21 Time of Service: 09:10 Occupational Therapy Notes Occupational Therapy Inpatient Treatment Note Date: 03/06/21 PRECAUTIONS: Fall, standard, Full SUBJECTIVE: Pt was lying in bed when OT arrived, He states that he has not been using his (B) UE for eating and nursing has been performing this for max (A). OBJECTIVE: PAIN:c/o pain throughout body and with spasms that occur randomly in any position that he is in. Manual Therapy [id number]: OT performed joint blocking techniques and manual mobilization to pts (B) UE at MP, IP and DIP as well as PROM to pts (B) thumbs into flexion. He is tolerating this well and with use of tool OT performed IASTM with down regulation on dorsal aspect of digits. OT passively mobilized pts (B) wrists into flexion and extension which he had some pain at end ranges. His tendons are tight into extension. OT was able to again achieve full ROM of pts digits into extension with no pain.OT educates pt to perform his ADLs with increased functional use of his hands. Pt notes that it is easier at times to have max (A) however, OT will continue to work with pt for this. OT will monitor pts response to todays session and progress accordingly. ASSESSMENT/PLAN: Plan is to continue to prevent contractures in pts (B) UE, OT will work with pt on gross motor control of his arms and increase his functional (I) in his ADL/IADL routines specifically with eating routines. TREATMENT CODES/TIME: [id number], 20 minutes (09:10) [facility]
[2021-03-06] MEDS: Diclofenac 1% Gel 100 GM TUBE TP (11:50)
[2021-03-06] MEDS: Acetaminophen 325 MG TAB 650 MG PO (15:01)
--- NOTE | 2021-03-06 17:12 | PDOC.CMPRO ---
- If Service Date Differs Date of service: 03/06/21 Time of Service: 17:12 Care Management Progress Note S/O: Favio remains at [facility] in SB-1 status awaiting prior authorization from his insurance company to return to [facility]. There is also an issue with his wound vacs. The insurance company feels that one wound vac should suffice but when that was trialed, it did not work for the 2 decubitii he has. For the most part Favio has tried to maintain good spirits and has been appreciative of the care delivered. Today he verbalized being a bit discouraged. The referral sent to [facility] was received but they do not feel they can offer him a bed. [facility] spoke at length with Nicki, the mother of Favio's children today. She has been working on trying to get both disability and terminal gauger supervisor medicaid for Favio, but the process is not complete. Without a guaranteed payer source, most facilities are unwilling to accept a terminal gauger supervisor patient/resident. A: Favio is a 55 year old man admitted to [facility] on 02/22/21 with obstipation P: Favio will likely return to [facility] when prior authorization from his insurance company is received. He will likely continue to seek placement at a different facility with the help of his family. He will follow up with the provider at [facility] and their plan of care. [facility]avio will transport [facility] coordinated by [facility]. [facility] will continue to support Favio and his family and assess for ongoing discharge concerns.
[2021-03-06] MEDS: Melatonin 3 MG TAB 6 MG PO (21:15)
[2021-03-06] MEDS: Mirtazapine 15 MG TAB 30 MG PO (21:15)
[2021-03-06] MEDS: Zolpidem 10 MG TAB PO (21:16)
[2021-03-07 07:55] VITALS: BP 159/98; PULSE 73; RESP 18; TEMP 36.4; O2SAT 97
[2021-03-07] MEDS: Psyllium PKT 1 EACH PO (08:00)
[2021-03-07] MEDS: Protein Nutritional Supplement 16 GM 1 OUNCE PACKET PO ×3 (08:00→20:07)
[2021-03-07] MEDS: Baclofen 10 MG TAB 5 MG PO ×3 (08:01→20:07)
[2021-03-07] MEDS: Zinc Sulfate 220 MG TAB PO (08:02)
[2021-03-07] MEDS: Multivitamin w/Minerals TAB 1 TAB PO (08:02)
[2021-03-07] MEDS: DULoxetine 30 MG CAP PO (08:02)
[2021-03-07] MEDS: Lactobacillus Acidophilus CAP 1 CAP PO ×3 (08:02→20:07)
[2021-03-07] MEDS: Apixaban 5 MG TAB PO ×2 (08:02→20:07)
[2021-03-07] MEDS: busPIRone 5 MG TAB 10 MG PO ×3 (08:03→20:07)
[2021-03-07] MEDS: Ascorbic Acid 500 MG TAB PO ×2 (08:03→20:07)
[2021-03-07] MEDS: Pantoprazole 40 MG TABCR PO (08:03)
--- NOTE | 2021-03-07 08:41 | OT.INTREAT ---
Date of service: 03/07/21 Time of Service: 08:05 Occupational Therapy Notes Occupational Therapy Inpatient Treatment Note Date: 03/07/21 PRECAUTIONS: Fall, standard, Full SUBJECTIVE: Pt was sitting in bed when OT arrived. He states that he is discouraged and feels that he is running out of options. He notes that he would like to continue rehabbing his body and is upset about the refusals that he keeps getting. OBJECTIVE: PAIN:c/o pain throughout body and with spasms that occur randomly in any position that he is in. Hand Therapy: OT performed joint blocking techniques and manual mobilization to pts (B) UE at MP, IP and DIP as well as PROM to pts (B) thumbs into flexion. He is tolerating this well and with use of tool OT performed IASTM with down regulation on dorsal aspect of digits. OT passively mobilized pts (B) wrists into flexion and extension which he had some pain at end ranges. OT was able to don and doff pts (B) orthosis and he tolerated this well with no increased pain. OT will monitor pts response to todays session and progress accordingly. Eating: With adaptive silverware and min vc pt was able to perform hand to mouth, stabbing of food and chewing/swallowing (I). He needed mod vc throughout and max (A) cutting food. His plate has to be held at his side and when fatigued he does require (A) with getting the fork lined up with his mouth. ASSESSMENT/PLAN: Pt is making increased gains in terms of his functional (I), he is able to tolerate eating routine better. He is discouraged and feeling down today. This is ultimately affecting his participation as he is willing but needs more vc. Functionally his hands are improving and less in the contracted nature at this time which is increasing his functional (I) throughout. TREATMENT CODES/TIME: [id number], 30 minutes (08:05) Michelle Pearce OTR/[facility]
[2021-03-07] MEDS: Simethicone 80 MG CHEW 40 MG PO ×3 (09:32→18:21)
--- NOTE | 2021-03-07 10:05 | W.NUTRFU ---
Date of service: 03/07/21 Time of Service: 10:05 Nutritional Follow up NOTE: Per wound nurse, wound not healing optimally at this time despite wound vac. Concerned that current intake not meeting additional needs for wound healing. Estimated needs: 9639-9179 kcal, 110-120 g protein, 2500 ml fluid. PO intake averaging 1800 kcal, 60 g protien. Currently supplemented with liquid protein 3 oz (provides additional 180 kcal, 45 g protein) 500 mg Vit C, MVI, 220 mg zinc sulfate. Total macronutrient intake: 1900 kcal, 100 g protein - meeting 80% of calorie/protein needs Will start adding ensure (240 kcal, 9 g protein) BID to provide additional nutrients for wound healing. will continue to follow. recommend weekly Prealbumin levels to assess Time Spent in Nutritional Counseling and Treatment: 10
[2021-03-07] MEDS: HYDROmorphone 2 MG TAB PO (10:36)
[2021-03-07 15:25] VITALS: BP 114/76; PULSE 92; RESP 20; TEMP 36.6; O2SAT 96
--- NOTE | 2021-03-07 15:33 | PT.INTREAT ---
Date of service: 03/07/21 Time of Service: 10:30 PT Notes Visit Reasons: DECUBITIS ULCERS, QUADRAPLEGIC Inpatient Physical Therapy Treatment Note [facility] Date: 03/07/2021 PRECAUTIONS: Quadriplegia C6-7 SUBJECTIVE: Favio reports feeling discouraged, as [facility]. He feels that he is not making much progress. OBJECTIVE: PAIN: Patient c/o L-sided elbow and shoulder pain BED MOBILITY/TRANSFERS: Rolling L/R: Max A Supine-sit: CGA by pulling with B UE Sit-supine: Min A for slow movement GAIT: Unable THEREX: Patient was instructed in a core stabilization and strengthening program, as per flow sheet. He completes semi-unsupported long-sitting, lateral trunk bending, trunk rotation, trunk flexion/extension. He also completes [employer]er[employer] football director statistical programming and toss to contralateral side, and pool noodle push/pull with L-sided director statistical programming support. He also completes pool noodle bicep curl with B UE simultaneous, both overhand and underhand director statistical programming. Performed soft tissue stretching to L elbow for pain relief. ASSESSMENT: Patient demonstrates improved trunk control, demonstrating the ability to perform semi-unsupported long-sitting in airbed. He was also able to demonstrate improved director statistical programming, bilaterally. PLAN: Continue with core and UE strengthening for improved mobility, as tolerated. TREATMENT CODE/TIME: Session 1: 50 minutes; 72332, 14663 x2 (10:30) Session 2: 40 minutes; 11443, 99721 x2 (13:25)
--- NOTE | 2021-03-07 15:55 | WOUNDCONS ---
- If Service Date Differs Date of service: 03/07/21 Time of Service: 11:30 Wound Initial Evaluation Narrative: Pt seen @ bedside for Vac dressing change and follow-up wound consult. Pt has [address] @ this time. Both wounds cleansed, measured, photos taken. wound beds have necrotic looking tissue present, ? fascia, very adherent and fibrinous. wounds redressed, bridged to bilateral hips, vacs running @ 125 mmhg @ this time. right ishial tuberosity measures: 3.9 x 3.4 x 2.3 cm with undermining measuring 2.5 cm from 11-3 o'clock. bone palpable. left ishial tuberosity measures: 6 x 5x 3.5 cm's with undermining measuring 1.2 cm from 9-1 o'clock. bone palpable. measurments take with Pt on left and right lateral sides in nuetral position. wound vac canister 150ml's from left side wound wound vac canister 25ml's from right side Pt on Arjo Air bed. - Wound Left ishial Tuberosity Wound Type: Pressure Ulcer Pressure Ulcer Stage: IV Wound General Appearance: Necrotic, Unapproximated, Tendon Visible (? tendon, ? fascia), Muscle Visible, Bone Visible (palpable, not visable) Wound Bed Greatest Portion: Pale [place] (pink/red non-granular tissue) Wound Bed Lesser Portion: Yellow (Slough) Wound Surrounding Tissue Appearance: [place] Percent of Wound Bed Granulated/Red: 65 Percent of Wound Bed Slough/Yellow: 35 Percent of Wound Bed Eschar/Black: 0 Wound Length: 6 cm Wound Width: 5 cm Wound Depth: 3.5 cm (1.2 cm undermining from 9-1 o'clock) Wound Drainage Amount: Moderate (150 cc's in cannister on wound vac) Right ishial Tuberosity Wound Type: Pressure Ulcer Pressure Ulcer Stage: IV Wound General Appearance: Necrotic, Unapproximated, Muscle Visible Wound Bed Greatest Portion: Pale [place] (pink/red non-granular tissue) Wound Bed Lesser Portion: Yellow (Slough) (firmly adherent yellow/white fibrinous) Wound Surrounding Tissue Appearance: [place] Percent of Wound Bed Granulated/Red: 60 Percent of Wound Bed Slough/Yellow: 40 Percent of Wound Bed Eschar/Black: 0 Wound Length: 3.9 cm Wound Width: 3.4 cm Wound Depth: 2.3 cm (undermining 2.5 cm from 11-3 o'clock) Wound Drainage Amount: Minimal (25 cc's in wound vac cannister) Wound Drainage Description: Sero Sanguineous - Pain Pain Level: 0 (insensate @ wound site) - Recomendation Recomendation:: Recommend considering repeat sharp debridement of remaining necrotic tissue d/t greater than 30% slough in bilateral wound bases. Recommend continuing wound vac therapy. Care driven by surgical services @ this time. Thank you. Referrals: Dietary (nutrition following), Physical Therapy (following), Other (OT following) Treatment Time - Time Total Time Spent with Patient: 60 minuets
[2021-03-07] MEDS: Diclofenac 1% Gel 100 GM TUBE TP ×2 (18:22→20:08)
[2021-03-07] MEDS: Midodrine 2.5 MG TAB PO (20:07)
[2021-03-07] MEDS: Mirtazapine 15 MG TAB 30 MG PO (20:57)
[2021-03-07] MEDS: Zolpidem 10 MG TAB PO (20:57)
[2021-03-07] MEDS: Melatonin 3 MG TAB 6 MG PO (20:57)
[2021-03-07 23:55] VITALS: BP 132/83; PULSE 75; RESP 19; TEMP 36.7; O2SAT 96
[2021-03-08] MEDS: Baclofen 10 MG TAB 5 MG PO ×5 (02:07→21:07)
[2021-03-08 07:31] VITALS: BP 124/75; PULSE 81; RESP 18; TEMP 36.9; O2SAT 98
[2021-03-08] MEDS: Midodrine 2.5 MG TAB PO ×2 (07:49→21:05)
[2021-03-08] MEDS: Lactobacillus Acidophilus CAP 1 CAP PO ×3 (07:49→21:04)
[2021-03-08] MEDS: Ascorbic Acid 500 MG TAB PO ×2 (07:49→21:06)
[2021-03-08] MEDS: Zinc Sulfate 220 MG TAB PO (07:49)
[2021-03-08] MEDS: Multivitamin w/Minerals TAB 1 TAB PO (07:49)
[2021-03-08] MEDS: busPIRone 5 MG TAB 10 MG PO ×3 (07:49→21:06)
[2021-03-08] MEDS: Apixaban 5 MG TAB PO ×2 (07:50→21:04)
[2021-03-08] MEDS: Pantoprazole 40 MG TABCR PO (07:50)
[2021-03-08] MEDS: DULoxetine 30 MG CAP PO (07:50)
[2021-03-08] MEDS: Diclofenac 1% Gel 100 GM TUBE TP ×4 (07:50→21:03)
[2021-03-08] MEDS: Psyllium PKT 1 EACH PO (07:51)
[2021-03-08] MEDS: Protein Nutritional Supplement 16 GM 1 OUNCE PACKET PO ×3 (07:51→21:04)
[2021-03-08] MEDS: Simethicone 80 MG CHEW 40 MG PO ×3 (08:59→18:19)
--- NOTE | 2021-03-08 11:21 | PHACLINREV_ITS ---
Pharmacy Admission Review - Admission Clinical Review (Last Reviewed 03/02/21 @ 14:34 by Eliane Tolliver NP) Discharge planning issues (Acute) Decubitus skin ulcer (Acute) No Known Allergies Allergy (Unverified 11/26/18 03:46) Height 6 ft 2 in Weight 95 kg DECUBITIS ULCERS-QUADRAPLEGIC - Comments Comments/Follow Ups: Swingbed level-1, original admission was 02/20/21, patient from [facility], s/p debridement, Osteomylelitis ruled out, [address] VS good, multiple daily BM's (on Motegrity) no labs, no Micro. Care management working on potential new facility, or he will return to [facility], working w/PT. - Anticoagulation Therapeutic Anticoagulation: Reviewed Medications: Apixaban (Hx: DVT) - BP Control BP Control: Blood Pressure 124/75 Blood Pressure 132/83 - Current meds Current Medication Order Review: Reviewed (Baclofen changed from prn to scheduled, Diclofenac gel both scheduled and as needed to elbows and shoulders. Hydromorphone prior to dressing changes. Midodrine dose decreased for BP's that were creaping up, good bowel regimen)
--- NOTE | 2021-03-08 14:22 | CHAPLAIN ---
I had a brief visit with Favio today, as he had another visitor with him. He told me that he's been disappointed in not having a bed offer at the places he hoped to go, but he said he know people are still working on it to help him. He really likes the new bed that was brought in for him. I will continue to visit Favio.
[2021-03-08 16:02] VITALS: BP 102/68; PULSE 90; RESP 18; TEMP 36.8; O2SAT 97
[2021-03-08] MEDS: Melatonin 3 MG TAB 6 MG PO (21:05)
[2021-03-08] MEDS: Mirtazapine 15 MG TAB 30 MG PO (21:05)
[2021-03-08] MEDS: Zolpidem 10 MG TAB PO (21:05)
[2021-03-08 23:38] VITALS: BP 114/74; PULSE 78; RESP 18; TEMP 37.1; O2SAT 97
[2021-03-09 07:27] VITALS: BP 125/77; PULSE 69; RESP 18; TEMP 36.8; O2SAT 97
[2021-03-09] MEDS: Multivitamin w/Minerals TAB 1 TAB PO (08:16)
[2021-03-09] MEDS: busPIRone 5 MG TAB 10 MG PO ×3 (08:16→20:41)
[2021-03-09] MEDS: Ascorbic Acid 500 MG TAB PO ×2 (08:16→20:41)
[2021-03-09] MEDS: Midodrine 2.5 MG TAB PO ×2 (08:16→20:41)
[2021-03-09] MEDS: Apixaban 5 MG TAB PO ×2 (08:16→20:40)
[2021-03-09] MEDS: Protein Nutritional Supplement 16 GM 1 OUNCE PACKET PO ×3 (08:16→20:39)
[2021-03-09] MEDS: Pantoprazole 40 MG TABCR PO (08:16)
[2021-03-09] MEDS: Psyllium PKT 1 EACH PO (08:16)
[2021-03-09] MEDS: Lactobacillus Acidophilus CAP 1 CAP PO ×3 (08:16→20:41)
[2021-03-09] MEDS: DULoxetine 30 MG CAP PO (08:16)
[2021-03-09] MEDS: Baclofen 10 MG TAB 5 MG PO ×4 (08:17→20:41)
[2021-03-09] MEDS: Simethicone 80 MG CHEW 40 MG PO ×3 (09:29→18:53)
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
--- NOTE | 2021-03-09 12:21 | PTTR_ITS ---
Date of service: 03/09/21 Time of Service: 11:00 PT Notes Visit Reasons: DECUBITIS ULCERS, QUADRAPLEGIC Inpatient Physical Therapy Treatment Note [facility] Date: 03/09/2021 PRECAUTIONS:Quadriplegia C6-C7 SUBJECTIVE: State his left shoulder is sore from transferring in bed yesterday. Frustrated with being handicapped. Hopes to get to a rehab facility soon. OBJECTIVE: PAIN: Left shoulder soreness anteriorly today. BED MOBILITY/TRANSFERS Supine-long leg seated position: Mod assist of 2 Long leg sitting to supine: Mod assist of 2 for slow controlled movement Sitting in long leg seated position x 5 minutes THEREX: Worked on core control while in long leg seated position with lateral truck bends, trunk rotation, trunk flexion/ extension. Required mod assist with positioning with this. Once back in supine, with head elevated, focused on UE control with pool noodle bicep curls with overhand and underhand positioning on noodle, [employer] football internet application developer and toss to opposite side of bed, cube squeeze for digit gripping and shoulder shrugs. Patient also worked on cards signing signatures on 2 cards with right hand. Requires assist with holding cards and clip board, as well as assist with finger positioning with [employer] football and pool noodle. See flow sheet for details to reps performed. Performed brief stretching of left elbow flex/ ext and forearm supination/ pronation for 5 reps x 20 seconds each at conclusion of session. ASSESSMENT: Tolerated today's session fair. Opted not to push bed transfers today due to left shoulder irritation. PLAN: Continue to focus on improved UE control and mobility / core stabilization activities. TREATMENT CODE/TIME: 36566 x3, 40 minutes (11:00 to 11:40 am)
[2021-03-09 14:58] VITALS: BP 116/70; PULSE 89; RESP 18; TEMP 36.5; O2SAT 96
[2021-03-09] MEDS: HYDROmorphone 2 MG TAB PO (15:40)
[2021-03-09] MEDS: Mirtazapine 15 MG TAB 30 MG PO (20:40)
[2021-03-09] MEDS: Zolpidem 10 MG TAB PO (20:41)
[2021-03-09] MEDS: Melatonin 3 MG TAB 6 MG PO (20:41)
[2021-03-09 23:21] VITALS: BP 106/68; PULSE 86; RESP 17; TEMP 37; O2SAT 98
[2021-03-10 07:11] LABS: Abs Immature Grans 0.02 10^3/uL (0.0-0.06); Absolute Basophil Count 0.03 10^3/uL (0.0-0.2); Absolute Eosinophil Count 0.26 10^3/uL (0.0-0.7); Absolute Lymphocyte Count 1.71 10^3/uL (1.2-3.4); Absolute Monocyte Count 0.54 10^3/uL (0.1-0.8); Absolute Neutrophil Count 4.78 10^3/uL (1.2-6.7); Basophils % 0.4; Eosinophils % 3.5; HGB 9.7 g/dL (13.5-17.5); Immature Grans % 0.3; Lymphocytes % 23.3; MCH 26.6 pg (27.0-33.0); MCHC 31.3 % (32.0-36.0); MCV 84.9 fL (80-95); MPV 10.2 fL (8.0-11.0); Monocytes % 7.4; Neutrophils % 65.1; Nucleated RBC 0 %; Platelet Count 305 10^3/uL (130-400); RBC 3.65 10^6/uL (4.36-5.78); RDW-SD 43.4 fL; WBC 7.34 10^3/uL (4.4-10.8)
[2021-03-10 07:34] LABS: Anion Gap 9.7 mmol/L (3-11); BUN 28 mg/dL (7-18); C-Reactive Protein 2.65 mg/dL (0.0-0.3); CO2 26.3 mmol/L (21.0-32.0); CREATININE 0.8 mg/dL (0.70-1.30); Calcium 9.7 mg/dL (8.5-10.1); Chloride 105 mmol/L (98-107); Glucose 109 mg/dL (74-106); Magnesium 1.9 mg/dL (1.8-2.4); Potassium 4.2 mmol/L (3.5-5.1); Sodium 141 mmol/L (136-145)
[2021-03-10 07:54] LABS: Procalcitonin < 0.1 ng/mL
[2021-03-10 08:09] VITALS: BP 115/74; PULSE 81; RESP 18; TEMP 36.6; O2SAT 96
[2021-03-10] MEDS: Protein Nutritional Supplement 16 GM 1 OUNCE PACKET PO ×3 (08:11→20:46)
[2021-03-10] MEDS: Psyllium PKT 1 EACH PO (08:11)
[2021-03-10] MEDS: Multivitamin w/Minerals TAB 1 TAB PO (08:12)
[2021-03-10] MEDS: DULoxetine 30 MG CAP PO (08:12)
[2021-03-10] MEDS: Baclofen 10 MG TAB 5 MG PO ×4 (08:12→20:46)
[2021-03-10] MEDS: Ascorbic Acid 500 MG TAB PO ×2 (08:12→20:49)
[2021-03-10] MEDS: busPIRone 5 MG TAB 10 MG PO ×3 (08:12→20:48)
[2021-03-10] MEDS: Midodrine 2.5 MG TAB PO ×2 (08:12→20:47)
[2021-03-10] MEDS: Pantoprazole 40 MG TABCR PO (08:12)
[2021-03-10] MEDS: Apixaban 5 MG TAB PO ×2 (08:12→20:49)
[2021-03-10] MEDS: Lactobacillus Acidophilus CAP 1 CAP PO ×3 (08:12→20:49)
[2021-03-10] MEDS: Simethicone 80 MG CHEW 40 MG PO ×2 (09:40→18:26)
--- NOTE | 2021-03-10 13:13 | PTTR_ITS ---
Date of service: 03/10/21 Time of Service: 09:20 PT Notes Visit Reasons: DECUBITIS ULCERS, QUADRAPLEGIC Inpatient Physical Therapy Treatment Note [facility] Date: 03/10/2021 PRECAUTIONS: Quadriplegia C6-C7 SUBJECTIVE: Left shoulder/ elbow is not feeling too bad today. Just very stiff in both shoulders today. Indicated he had been writing with built up marker better 3-4 weeks ago. Has not been doing any writing lately. OBJECTIVE: PAIN: Left shoulder/ elbow was not as painful today. BED MOBILITY/TRANSFERS Supine-sit: To avoid irritation of left shoulder HOB was brought to 70 degrees, mod assist of 2 with semi-supported sitting in bed, bed in chair position Sit-supine: Mod assist of 2 to control descent from sitting up to 70 degrees supine Sat up in semi-supported position for approximately 5 minutes. THEREX: Performed lateral trunk bends, trunk flexion/ extension while in semi- supported position for 3 -5 reps each. Once back to supine we worked on PNF D1/D2 UE active assistive exercises for 10 reps each within pain free ROM, shrugs, bicep curls with 1# hand dumbbell, gripping of pool noodle with bicep curl both over and under hand, and [employer] football stab setter and driller and toss to contralateral side. Indicated he does not really like [employer] football exercise. Had patient work on writing with right hand, name and alphabet. AAROM with bilateral UE flexion, scaption, IR, ER, elbow flexion/ extension, wrist flexion/extension, forearm sup/ pronation and digit extension for 5-10 reps each, withing pain free ROM. ASSESSMENT: Did better with gripping pool noodle today, requiring less assist with hand positioning while doing curls. Also, did better with semi- supported sitting, but still very dependent on assist of 2 people with this. PLAN: Continue with current POC, advancing as able to tolerate. TREATMENT CODE/TIME: 89450 x 3, 45 minutes (9:20 to 10:05 am)
[2021-03-10 15:12] VITALS: BP 156/91; PULSE 72; RESP 18; TEMP 36.8; O2SAT 97
[2021-03-10] MEDS: Zolpidem 10 MG TAB PO (20:47)
[2021-03-10] MEDS: Melatonin 3 MG TAB 6 MG PO (20:47)
[2021-03-10] MEDS: Mirtazapine 15 MG TAB 30 MG PO (20:48)
[2021-03-10] MEDS: Diclofenac 1% Gel 100 GM TUBE TP (20:50)
[2021-03-10 23:53] VITALS: BP 127/78; PULSE 99; RESP 17; TEMP 37.2; O2SAT 95
[2021-03-11 07:25] VITALS: BP 125/80; PULSE 76; RESP 18; TEMP 36.5; O2SAT 98
[2021-03-11] MEDS: Protein Nutritional Supplement 16 GM 1 OUNCE PACKET PO ×3 (08:48→20:15)
[2021-03-11] MEDS: Midodrine 2.5 MG TAB PO ×2 (08:48→20:13)
[2021-03-11] MEDS: DULoxetine 30 MG CAP PO (08:48)
[2021-03-11] MEDS: Psyllium PKT 1 EACH PO (08:48)
[2021-03-11] MEDS: Multivitamin w/Minerals TAB 1 TAB PO (08:49)
[2021-03-11] MEDS: Ascorbic Acid 500 MG TAB PO ×2 (08:49→20:14)
[2021-03-11] MEDS: Lactobacillus Acidophilus CAP 1 CAP PO ×3 (08:49→20:13)
[2021-03-11] MEDS: Apixaban 5 MG TAB PO ×2 (08:49→20:14)
[2021-03-11] MEDS: Pantoprazole 40 MG TABCR PO (08:49)
[2021-03-11] MEDS: busPIRone 5 MG TAB 10 MG PO ×3 (08:49→20:13)
[2021-03-11] MEDS: Baclofen 10 MG TAB 5 MG PO ×4 (08:50→20:15)
[2021-03-11] MEDS: Simethicone 80 MG CHEW 40 MG PO ×3 (08:50→17:34)
[2021-03-11] MEDS: Diclofenac 1% Gel 100 GM TUBE TP ×3 (08:52→17:34)
[2021-03-11 09:41] LABS: Bilirubin Negative (Negative); Blood Large (Negative); Clarity Cloudy (Clear); Glucose Negative (Negative); Ketones Negative (Negative); Leukocyte Esterase Small (Negative); Nitrite Positive (Negative); Specific Gravity >= 1.030 (1.005-1.025); Urobilinogen 0.2 EU/dL (Up TO 0.2)
[2021-03-11 09:57] LABS: Bacteria Moderate HPF (Negative); C & S Indicated? Yes; Casts Negative LPF (Negative); Crystals Many Calcium Oxalate HPF (Negative); Epithelial Cells Negative HPF (Negative); Mucus Negative (Negative); RBC >50 HPF (0-2); WBC >50 HPF (0-5)
--- NOTE | 2021-03-11 11:05 | OTTR_ITS ---
Date of service: 03/11/21 Time of Service: 08:20 Occupational Therapy Notes Occupational Therapy Inpatient Treatment Note Date: 03/11/21 PRECAUTIONS: Fall, standard, Full SUBJECTIVE: Pt was sitting in bed when OT arrived. He states that he is upset with his wounds and wants to get better. He notes that he is not sure when he is leaving. OBJECTIVE: PAIN:no c/o pain Manual Therapy [id number]: OT performed joint blocking techniques and manual mobilization to pts (B) UE at MP, IP and DIP as well as PROM to pts (B) thumbs into flexion. He is tolerating this well and with use of tool OT performed IASTM with down regulation on dorsal aspect of digits with soreness in his (L) thumb which could be nerve related. OT passively mobilized pts (B) wrists into flexion and extension which he had some pain at end ranges. OT was able to don and doff pts (B) orthosis and he tolerated this well with no increased pain. OT will monitor pts response to todays session and progress accordingly. OT provided education and training to pt on use of sock aid. We will attempt performance of this tomorrow. ASSESSMENT/PLAN: OT discusses with pt increased (I) in his ADL routine. He notes that he is making gains in terms of his decreased risk for contractures. OT will continue to progress pt as symptoms allow. TREATMENT CODES/TIME: [id number], 25 minutes (08:20) [facility]
--- NOTE | 2021-03-11 12:00 | PT.INTREAT ---
Date of service: 03/11/21 Time of Service: 09:50 PT Notes Visit Reasons: DECUBITIS ULCERS, QUADRAPLEGIC Inpatient Physical Therapy Treatment Note [facility] Date: 03/11/2021 PRECAUTIONS: Quadriplegia C6-C7 SUBJECTIVE: When asked how he's feeling, Favio reports just great. Left shoulder and elbow is stiff today. OBJECTIVE: Favio appears very down today, he is not talkative and does not smile or laugh today. PAIN: No c/o pain BED MOBILITY/TRANSFERS: Patient transferred from supine to seated at EOB, requiring Max A x2 with draw pad. He returns to supine from sitting at EOB with Max A x2, avoiding grabbing shoulders due to discomfort. Patient sat at EOB with CGA and Min-Mod A for approximately 15 minutes, with B feet/LE supported on chair in front of him, as bed is too high to support on floor. THEREX: While seated at EOB, patient was instructed in supported trunk flexion/extension, lateral trunk bends, shoulder shrugs, shoulder circles, and cervical flexion/extension. With bed in chair position, patient is instructed in resisted PNF D1/D2 patterns and punch ups with 2# ankle weight. He was also instructed in bicep curls OH/UH with pool noodle, as well as OH punch outs with isometric triceps. ASSESSMENT: Patient appears very down, which appears to be interfering with his motivation to participate in PT session. Patient continues to require significant support while seated at EOB. PLAN: Continue with core stabilization and UE strengthening activities, as tolerated. TREATMENT CODE/TIME: Session 1: 40 minutes; [id number], 85840 x2 (9:50)
--- NOTE | 2021-03-11 13:22 | UCONE_ITS ---
Date of service: 03/11/21 Time of Service: 13:23 Assessment and Plan Assessment and plan (1) Neurogenic bladder: Status: Chronic Assessment and plan: We will plan on seeing venous catheter in about a mo [facility]. History of Present Illness History of Present Illness Chief Complaint: Neurogenic bladder Narrative: This is a 55-year-old gentleman who has a history of a neurogenic tila dder. He has an indwelling suprapubic tube. The tube is changed monthly. The last change occurred about 5 weeks ago in my office. I have been asked to change the catheter while he is an inpatient. [facility] Medical History (Updated 03/09/21 @ 09:56 by Lamar Murillo MD) Acute embolism and thrombosis of deep vein of right lower extremity Anxiety disorder C. difficile colitis Dislocation of C6/C7 cervical vertebrae DVT (deep venous thrombosis) Fall down embankment Fusion of spine Hypotension Major depressive disorder Neurogenic bladder Quadriplegia Social History Smoking/Tobacco Use Status: Never Smoking risk assessment performed?: Yes Alcohol Intake: current Alcohol Intake frequency: a few times a week Drug use: Occasionally Substance use type: marijuana Do you feel safe at home: Yes Do you feel safe in your relationship?: Yes Exam Narrative Exam Narrative: He does not appear to septic or toxic He is awake and alert The suprapubic tube site is clean with no surrounding erythema or ecchymosis Results Last Vital Signs Temp 36.5 C 03/11/21 07:25 Pulse 76 03/11/21 07:25 Resp 18 03/11/21 07:25 BP 125/80 03/11/21 07:25 Pulse Ox 98 03/11/21 07:25 Labs Result diagrams: 03/10/21 06:18 03/10/21 06:18 Labs: Laboratory Results - last 24 hr 03/11/21 09:10 Urine Color Yellow Urine Clarity Cloudy Urine pH 6.0 Ur Specific [place] >= 1.030 H Urine Protein >=300 H Urine Ketones Negative Urine Blood Large H Urine Nitrite Positive H Urine Bilirubin Negative Urine Urobilinogen 0.2 Ur Leukocyte Esterase Small H Urine RBC >50 H Urine WBC >50 H Ur Epithelial Cells Negative Urine Crystals Many calcium oxalate Urine Bacteria Moderate Urine Casts Negative Urine Mucus Negative Ur Culture Indicated? Yes Urine Glucose Negative Change Bladder Catheter Text: He is seen in his hospital room. He is in the supine position. His indwelling suprapubic tube was removed after deflating the catheter balloon. The suprapubic site was prepped and a new 16 [place] catheter was passed through the suprapubic tract into the bladder. The catheter balloon was inflated with 10 cc of sterile water. The catheter was hooked to gravity drainage. He tolerated this procedure well.
[2021-03-11] MEDS: HYDROmorphone 2 MG TAB PO (14:19)
--- NOTE | 2021-03-11 14:30 | CHAPLAIN ---
I had a short visit with Favio today. His mom was visiting with him as well, so I didn't stay long. He is still very happy with this bed. He said he's being transfer [facility] eventually but that he's filed a grievance against them and someone was going to begin investigating today sometime. I will continue to visit Favio.
--- NOTE | 2021-03-11 16:49 | PGE_ITS ---
Date of Service Date of service: 03/11/21 Time of Service: 15:50 Assessment and Plan Assessment and plan (1) Decubitus skin ulcer: Status: Acute Assessment and plan: 55yo male with C6-7 dislocation with quadriplegia, found to have bilateral ischial tuberosity decubitus ulcers. He is s/p two decbridments of necrotic tissue. Wound care and the Hospitalist service have re-consulted general surgery for further debridement. In my evaluation, only a tiny bit of shaggy tissue needed sharp debridement. New NPWT dressings were applied. --would continue with NPWT with changes 3x/week --I understand the plan is for the patient to f/u with [facility] --supportive care per the Hospitalist service --re-consult general surgery as necessary Pt discussed with Dr. Murillo, Hospitalist Qualifiers: Pressure injury location: buttock Pressure injury stage: unstageable Laterality: unspecified laterality Qualified Code(s): L89.300 - Pressure ulcer of unspecified buttock, unstageable Subjective Subjective Patient reports: no new complaints and tolerating a regular diet Interval history since last seen: Surgical service asked to re-evaluate bilateral ischial tuberosity decubitus ulcers. Pt without new complaints. Excited about potential surgery in [place] for nerve transposition to help with finger mobility. Exam Const General: cooperative and other (uncomfortable laying on his right shoulder) Orientation: alert, awake and oriented x3 Eyes Other: no scleral icterus Neck Neck: trachea midline and supple Resp Effort & Inspection: normal respiratory effort, able to speak in complete sentences, no grunting and not labored GI Palpation: soft and not rigid Scrotum: no ecchymosis and not edematous Other: suprapubic catheter in place draining clear light damaso urine Back/Spine/Pelvis Cervical Spine: No collar present and scars present Back/spine/pelvis image: 1. Right ischial tuberosity decubitus ulcer 2. Left ischial tuberosity decubitus ulcer Neuro General: patient alert, patient awake and patient oriented x3 Speech: speech normal Gait: other (quadriplegic) Psych Appearance: grossly normal Mental Status: mental status grossly normal Speech and Movement: speech and movement normal Mood: irritable mood Affect: normal affect Attitude: cooperative Thought Process: normal Thought Content: normal Insight: insight good Judgment: judgment good Objective Last Vital Signs Temp 97.7 F 03/11/21 07:25 Pulse 76 03/11/21 07:25 Resp 18 03/11/21 07:25 BP 125/80 03/11/21 07:25 Pulse Ox 98 03/11/21 07:25 Laboratory Results - last 24 hr 03/11/21 09:10 Urine Color Yellow Urine Clarity Cloudy Urine pH 6.0 Ur Specific [place] >= 1.030 H Urine Protein >=300 H Urine Ketones Negative Urine Blood Large H Urine Nitrite Positive H Urine Bilirubin Negative Urine Urobilinogen 0.2 Ur Leukocyte Esterase Small H Urine RBC >50 H Urine WBC >50 H Ur Epithelial Cells Negative Urine Crystals Many calcium oxalate Urine Bacteria Moderate Urine Casts Negative Urine Mucus Negative Ur Culture Indicated? Yes Urine Glucose Negative Procedures Other Procedure Description/Findings: PROCEDURE: Bilateral decubitus ulcer decbridement Informed verbal consent was obtained,a nd witnessed by nursing, from this p atient with quadriplegia. While the negative pressure wound therapy dressings on his bilateral ischial tuberosity ulcers was being changed, I examined the wounds. On each side, cirucmferentially there was good granualtion tissue without evidence of perisistent necrotic tissue. At the bases, bone was not visible but closely palpable. Scant loose areolar and shaggy pieces of tendon/fascia were sharply debrided. A tunnel toward the scrotum on the right, discovered intra-operatively on 02/14/21, appears to have closed.
[2021-03-11 18:24] VITALS: BP 130/79; PULSE 87; RESP 18; TEMP 37.4; O2SAT 97
[2021-03-11 20:28] VITALS: BP 116/71; PULSE 90; RESP 18; TEMP 36.8; O2SAT 97
[2021-03-11] MEDS: Zolpidem 10 MG TAB PO (21:04)
[2021-03-11] MEDS: Melatonin 3 MG TAB 6 MG PO (21:04)
[2021-03-11] MEDS: Mirtazapine 15 MG TAB 30 MG PO (21:04)
[2021-03-12 07:19] VITALS: BP 127/77; PULSE 78; RESP 18; TEMP 36.7; O2SAT 97
[2021-03-12] MEDS: Simethicone 80 MG CHEW 40 MG PO ×3 (08:50→18:41)
[2021-03-12] MEDS: Protein Nutritional Supplement 16 GM 1 OUNCE PACKET PO ×3 (08:50→21:43)
[2021-03-12] MEDS: Psyllium PKT 1 EACH PO (08:50)
[2021-03-12] MEDS: Apixaban 5 MG TAB PO ×2 (09:05→21:43)
[2021-03-12] MEDS: Pantoprazole 40 MG TABCR PO (09:05)
[2021-03-12] MEDS: Midodrine 2.5 MG TAB PO ×2 (09:05→21:43)
[2021-03-12] MEDS: Multivitamin w/Minerals TAB 1 TAB PO (09:05)
[2021-03-12] MEDS: Lactobacillus Acidophilus CAP 1 CAP PO ×3 (09:06→21:43)
[2021-03-12] MEDS: Diclofenac 1% Gel 100 GM TUBE TP ×3 (09:06→16:28)
[2021-03-12] MEDS: busPIRone 5 MG TAB 10 MG PO ×3 (09:06→21:43)
[2021-03-12] MEDS: DULoxetine 30 MG CAP PO (09:06)
[2021-03-12] MEDS: Baclofen 10 MG TAB 5 MG PO ×4 (09:06→21:43)
[2021-03-12] MEDS: Ascorbic Acid 500 MG TAB PO ×2 (09:06→21:43)
--- NOTE | 2021-03-12 09:18 | OTTR_ITS ---
Date of service: 03/12/21 Time of Service: 08:15 Occupational Therapy Notes Occupational Therapy Inpatient Treatment Note Date: 03/12/21 PRECAUTIONS: Fall, standard, Full SUBJECTIVE: Pt was sitting in bed when OT arrived. He is agreeable to OT session and states that his hands are better. OBJECTIVE: PAIN:no c/o pain Manual Therapy [id number]: OT performed joint blocking techniques and manual mobilization to pts (B) UE at MP, IP and DIP as well as PROM to pts (B) thumbs into flexion. He is tolerating this well and with use of tool OT performed IASTM with down regulation on dorsal aspect of digits with soreness in his (L) thumb which could be nerve related. OT passively mobilized pts (B) wrists into flexion and extension which he had some pain at end ranges. OT was able to don and doff pts (B) orthosis and he tolerated this well with no increased pain. OT will monitor pts response to todays session and progress accordingly. OT provided education and training to pt on use of sock aid. We will attempt performance of this tomorrow. ASSESSMENT/PLAN: Plan is to continue to progress pts functional (I). TREATMENT CODES/TIME: [id number], 25 minutes (08:15) [facility]
[2021-03-12] MEDS: Acetaminophen 325 MG TAB 650 MG PO ×2 (11:26→18:41)
[2021-03-12 11:33] VITALS: BP 162/85; PULSE 80; RESP 18; TEMP 36.4; O2SAT 97
--- NOTE | 2021-03-12 12:05 | CMPROGNOTE_ITS ---
- If Service Date Differs Date of service: 03/12/21 Time of Service: 12:05 Care Management Progress Note S/O: Favio remains at [facility] in SB-1 status. He continues to receive care for the 2 decubitus ulcers that he presented with on admission. He underwent another debridement procedure earlier this week and still has 2 wound vacs. Additional referrals have been sent to both [facility] in [facility]. The facility in [place] where Favio spent several weeks, does not accept patient back unless they have experienced a new event . The facility in [place] does not have any availability at this time and does not anticipates any discharges in the near future. Most of their patients are complex and penitentiary. CM did hear back from [facility], a SNF in [place]. They are willing to consider a bed offer but need confirmation of a payer source. Luz, Favio's daughter, continues to work on disability and dedicated intermodal truck driver Medicaid for him, but the process is not complete. Favio spends many hours a day receiving direct nursing care and working with PT. He talks frequently on the phone with his daughter and Nicki. He also enjoys visiting with staff and conversing with them. A: Favio is a 55 year old man admitted to [facility] on 02/22/21 with obstipation P: Favio will likely continue to seek placement at a different facility with the help of his family. He will follow up with their providers plan of care. [facility] will [facility] by [facility]. CM will continue to support Favio and his family and assess for ongoing discharge concerns.
--- NOTE | 2021-03-12 12:23 | PT.INTREAT ---
Date of service: 03/12/21 Time of Service: 09:30 PT Notes Visit Reasons: DECUBITIS ULCERS, QUADRAPLEGIC Inpatient Physical Therapy Treatment Note [facility] Date: 03/12/2021 PRECAUTIONS: Quadriplegia C6-C7 SUBJECTIVE: Favio states that he is feeling ok today. He initially wanted to have his PT session take place outside, however, he changed his mind stating I just don't feel like it today. OBJECTIVE: PAIN: Patient c/o significant L shoulder pain BED MOBILITY/TRANSFERS Rolling L/R: Max A THEREX: Patient was instructed in an UE strengthening program, completed in a long-sitting position with bed in chair position, as per flow sheet. He utilizes 2# ankle weights on his wrists for exercise completion. AAROM to L shoulder into IR/ER, flexion, abduction/adduction. MANUAL THERAPY: With patient in partial R side-lying, perform STM and TPR techniques t/o L cervical and thoracic paraspinals, rhomboids, deltoids, pec major, biceps, upper trap, SCM, and SITS musculature. Also perform IASTM down regulation to biceps with elbow flexed to ~45 degrees. Complete cross friction massage to pec major. Also perform stretching of biceps 3x20 seconds. End with Aqua-K pad to neck and left shoulder areas. All manual therapy performed for pain relief and improved ROM throughout L UE. ASSESSMENT: Patient demonstrates increased tone in L bicpes, requiring stretching to reduce discomfort with movement and strengthening. He continues to complain of significant discomfort in L UE, causing difficulty with functional movements. Manual therapy reportedly aids in decreasing the discomfort. PLAN: Continue with UE strengthening and L UE pain relief for continued progression with ability to perform functional tasks with modified-independence. TREATMENT CODE/TIME: Session 1: 35 minutes; 01576 x2 (09:30) Session 2: 30 minutes; 30465, 53347 (15:15)
[2021-03-12 15:43] VITALS: BP 116/69; PULSE 93; RESP 18; TEMP 37.1; O2SAT 98
[2021-03-12] MEDS: Bisacodyl 10 MG SUPP PR (16:28)
[2021-03-12 21:39] VITALS: BP 122/74; PULSE 90; RESP 18; TEMP 36.9; O2SAT 99
[2021-03-12] MEDS: Melatonin 3 MG TAB 6 MG PO (21:43)
[2021-03-12] MEDS: Mirtazapine 15 MG TAB 30 MG PO (21:43)
[2021-03-12] MEDS: Zolpidem 10 MG TAB PO (21:43)
[2021-03-13 04:35] VITALS: BP 125/80; PULSE 94; RESP 18; TEMP 37; O2SAT 97
[2021-03-13 08:13] VITALS: BP 130/79; PULSE 82; RESP 17; TEMP 36.6; O2SAT 97
--- NOTE | 2021-03-13 08:26 | OT.INTREAT ---
Date of service: 03/13/21 Time of Service: 07:50 Occupational Therapy Notes Occupational Therapy Inpatient Treatment Note Date: 03/13/21 PRECAUTIONS: Fall, standard, Full SUBJECTIVE: Pt was sitting in bed when OT arrived. He slept with his hands in his braces last night and states that his hands feel better and more comfortable this morning. OBJECTIVE: PAIN:no c/o pain Manual Therapy [id number]: OT performed joint blocking techniques and manual mobilization to pts (B) UE at MP, IP and DIP as well as PROM to pts (B) thumbs into flexion. He is tolerating this well and with use of tool OT performed IASTM with down regulation on dorsal aspect of digits with soreness in his (L) thumb which could be nerve related. OT passively mobilized pts (B) wrists into flexion and extension which he had some pain at end ranges. Pt has increased tone in his (B) biceps (L)>(R) which is slightly alarming to his functional use of his (B) UE. OT will continue to monitor this. His hands are able to be placed in the extended position at rest with decreased pain this morning which is a gain in his functional ROM at this time. ASSESSMENT/PLAN: Plan is to continue to progress pts functional (I). He is able to perform functional ROM this increased (I). TREATMENT CODES/TIME: 41948, 20 minutes (07:50) Michelle Pearce OTR/[facility]
[2021-03-13] MEDS: Apixaban 5 MG TAB PO ×2 (08:40→19:34)
[2021-03-13] MEDS: Multivitamin w/Minerals TAB 1 TAB PO (08:40)
[2021-03-13] MEDS: Baclofen 10 MG TAB 5 MG PO ×4 (08:40→19:35)
[2021-03-13] MEDS: DULoxetine 30 MG CAP PO (08:41)
[2021-03-13] MEDS: Pantoprazole 40 MG TABCR PO (08:42)
[2021-03-13] MEDS: Midodrine 2.5 MG TAB PO ×2 (08:42→19:34)
[2021-03-13] MEDS: Lactobacillus Acidophilus CAP 1 CAP PO ×3 (08:43→19:34)
[2021-03-13] MEDS: Protein Nutritional Supplement 16 GM 1 OUNCE PACKET PO ×3 (08:43→19:35)
[2021-03-13] MEDS: Simethicone 80 MG CHEW 40 MG PO ×3 (08:43→17:05)
[2021-03-13] MEDS: Psyllium PKT 1 EACH PO (08:44)
[2021-03-13] MEDS: busPIRone 5 MG TAB 10 MG PO ×3 (08:45→19:34)
[2021-03-13] MEDS: Ascorbic Acid 500 MG TAB PO ×2 (08:45→19:34)
[2021-03-13] MEDS: HYDROmorphone 2 MG TAB PO ×2 (10:51→17:05)
[2021-03-13 15:40] VITALS: BP 124/76; PULSE 81; RESP 19; TEMP 37; O2SAT 97
[2021-03-13] MEDS: Acetaminophen 325 MG TAB 650 MG PO ×2 (15:41→19:53)
[2021-03-13 18:31] VITALS: TEMP 37.9
[2021-03-13] MEDS: Mirtazapine 15 MG TAB 30 MG PO (21:13)
[2021-03-13] MEDS: Zolpidem 10 MG TAB PO (21:14)
[2021-03-13] MEDS: Melatonin 3 MG TAB 6 MG PO (21:14)
[2021-03-13 22:41] VITALS: BP 113/68; PULSE 89; RESP 17; TEMP 36.8; O2SAT 97
[2021-03-14 02:12] LABS: Bilirubin Negative (Negative); Blood Small (Negative); Clarity Sl Cloudy (Clear); Glucose Negative (Negative); Ketones Negative (Negative); Leukocyte Esterase Small (Negative); Nitrite Negative (Negative); Specific Gravity >= 1.030 (1.005-1.025); Urobilinogen 0.2 EU/dL (Up TO 0.2); pH 5.5 (5-8)
[2021-03-14 02:20] LABS: Bacteria Few HPF (Negative); Casts Negative LPF (Negative); Crystals Mod Calcium Oxalate HPF (Negative); Epithelial Cells Negative HPF (Negative); Mucus Negative (Negative); WBC 20-50 HPF (0-5)
[2021-03-14 02:21] LABS: C & S Indicated? Yes
[2021-03-14 03:16] VITALS: TEMP 37
[2021-03-14 07:30] VITALS: BP 158/89; PULSE 79; RESP 18; TEMP 37; O2SAT 96
[2021-03-14] MEDS: Multivitamin w/Minerals TAB 1 TAB PO (09:29)
[2021-03-14] MEDS: Psyllium PKT 1 EACH PO (09:29)
[2021-03-14] MEDS: Protein Nutritional Supplement 16 GM 1 OUNCE PACKET PO ×3 (09:29→20:33)
[2021-03-14] MEDS: Baclofen 10 MG TAB 5 MG PO ×4 (09:29→20:32)
[2021-03-14] MEDS: Acetaminophen 325 MG TAB 650 MG PO ×3 (09:29→20:41)
[2021-03-14] MEDS: DULoxetine 30 MG CAP PO (09:30)
[2021-03-14] MEDS: Simethicone 80 MG CHEW 40 MG PO ×3 (09:30→17:45)
[2021-03-14] MEDS: Midodrine 2.5 MG TAB PO ×2 (09:30→20:32)
[2021-03-14] MEDS: Apixaban 5 MG TAB PO (09:30)
[2021-03-14] MEDS: Pantoprazole 40 MG TABCR PO (09:30)
[2021-03-14] MEDS: busPIRone 5 MG TAB 10 MG PO ×3 (09:31→20:32)
[2021-03-14] MEDS: Ascorbic Acid 500 MG TAB PO ×2 (09:31→20:31)
[2021-03-14] MEDS: Lactobacillus Acidophilus CAP 1 CAP PO ×3 (09:31→20:31)
[2021-03-14] MEDS: HYDROmorphone 2 MG TAB PO (10:05)
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
--- NOTE | 2021-03-14 12:27 | WOUNDCONS_ITS ---
- If Service Date Differs Date of service: 03/14/21 Time of Service: 12:28 Wound Initial Evaluation Narrative: Weekly follow Up consult preformed today. Photos taken, see below. Favio continues to have 2 wound vacs, 1 on each ishial tuberosity, running without difficulty. Bilateral wound bases have persistent necrotic, yellow, white, black slough 40-45% on each wound. Recommend repeat sharp debridement of remaining necrotic tissue d/t greater than 30% slough in bilateral wound bases. Dr. Gaspar notified of recommendations. Her plan is to take pt to the OR tomorrow for debriedment Where slough is not present granulation tissue is now forming, this is new since my last assessment. All measurements take with Pt side lying in neutral position (no one was pulling up on buttock). Bone is palpable on left wound. 100 CC's of drainage in wound vac canister from left. Right Vac is putting out scant bloody drainage. undermining is present on both wounds. 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 Pt is on air bed. Would like to change pt's Wound Vac dressing change schedule as there is only 1 wound nurse in house @ this time. Wound nurse does not work on M, W, or F. New dressing change schedule to be Thursday, , and Saturdays. see recommendations @ end of note. - Wound Right Ishial Tuberosity Wound Type: Pressure Ulcer Pressure Ulcer Stage: IV Wound General Appearance: Reddened, Necrotic, Unapproximated, Tendon Visible, Muscle Visible Wound Bed Greatest Portion: Yellow (Slough) Wound Bed Lesser Portion: Red (Granulation) Percent of Wound Bed Granulated/Red: 55 Percent of Wound Bed Slough/Yellow: 45 Wound Length: 3 cm Wound Width: 3.1 cm Wound Depth: 2.6 cm (1.5cm undermining from 10-3 o'clock) Wound Drainage Amount: Minimal Wound Drainage Description: Bloody Wound Debridement Amount of Tissue Removed: None (needs debridement) Left Ishial Tuberosity Wound Type: Pressure Ulcer Pressure Ulcer Stage: IV Wound General Appearance: Necrotic, Unapproximated, Tendon Visible, Muscle Visible, Bone Visible (palpable) Wound Bed Greatest Portion: Yellow (Slough) Wound Bed Lesser Portion: Red (Granulation) Percent of Wound Bed Granulated/Red: 55 Percent of Wound Bed Slough/Yellow: 45 Wound Length: 6.5 cm Wound Width: 4 cm Wound Depth: 3.5 cm (2cm undermining from 9-1 o'clock) Wound Drainage Amount: Moderate Wound Drainage Description: Bloody Wound Debridement Amount of Tissue Removed: None (need sharp debriedment) - Pain Pain Level: 0 Pain Scale Used: Visual Analog Scale 0-10 - Recomendation Recomendation:: Recommend repeat sharp debridement by surgical services of remaining necrotic tissue d/t greater than 30% slough in bilateral wound bases. Vac dressing changes Tuesdays, , and Saturdays. Thank you.
[2021-03-14 15:30] VITALS: BP 132/82; PULSE 76; RESP 17; TEMP 37; O2SAT 99
--- NOTE | 2021-03-14 19:58 | W.SURGCON ---
Date of service: 03/14/21 Time of Service: 19:59 History of Present Illness Narrative: I did review the pt case w/ the WOC RN. Pt still has thick black eschar on the wounds that dose need to be removed. I only saw the wounds from pictures. There dose not appear to be any infection. He is not on abx. He still is on elliquis. Last time I attempted a bedside debridement- he did not tolerate it well. I think it would be better to attempt in the OR. Please see the wound care nurses notes for exact measurements and pictures of the wounds. I willl have him hold the elliquis for the next 24 hrs and plan debridement in am. Per the WOC RN- they have been able to keep stool out of the wound. There is some granulation tissue present. They have been doing maximal therapy w/ PT & w/ nutrition support. He is on a daily MVI- I don't know how much Vit C or Zinc is in this formulation. He is doing protein supplements as well. We will also check his iron stores with his next blood draw. He may require more IV iron, as he continues to be anemic as well. Patient if James would be beneficial as a nutritional supplement. Risks of debridement include bleeding, infection, and complications of anesthesia. We may need to pack the wounds for 24 hours, as of bleeding, and hold on the wound VAC. And replaced the wound VAC on Thursday. Consults Consult date: 03/14/21 [facility] Medical History (Updated 03/09/21 @ 09:56 by Lamar Murillo MD) Acute embolism and thrombosis of deep vein of right lower extremity Anxiety disorder C. difficile colitis Dislocation of C6/C7 cervical vertebrae DVT (deep venous thrombosis) Fall down embankment Fusion of spine Hypotension Major depressive disorder Neurogenic bladder Quadriplegia Social History Smoking/Tobacco Use Status: Never Smoking risk assessment performed?: Yes Alcohol Intake: current Alcohol Intake frequency: a few times a week Drug use: Occasionally Substance use type: marijuana Do you feel safe at home: Yes Do you feel safe in your relationship?: Yes Results Last Vital Signs Temp 37.0 C 03/14/21 15:30 Pulse 76 03/14/21 15:30 Resp 17 03/14/21 15:30 BP 132/82 03/14/21 15:30 Pulse Ox 99 03/14/21 15:30 Labs Result diagrams: 03/10/21 06:18 03/10/21 06:18 Labs: Laboratory Results - last 24 hr 03/14/21 02:00 Urine Color Yellow Urine Clarity Sl cloudy Urine pH 5.5 Ur Specific [place] >= 1.030 H Urine Protein Negative Urine Ketones Negative Urine Blood Small H Urine Nitrite Negative Urine Bilirubin Negative Urine Urobilinogen 0.2 Ur Leukocyte Esterase Small H Urine RBC 5-10 H Urine WBC 20-50 H Ur Epithelial Cells Negative Urine Crystals Mod calcium oxalate Urine Bacteria Few Urine Casts Negative Urine Mucus Negative Ur Culture Indicated? Yes Urine Glucose Negative
[2021-03-14] MEDS: Carbamide Peroxide 15 ML BTL AU (20:41)
[2021-03-14] MEDS: Zolpidem 10 MG TAB PO (22:09)
[2021-03-14] MEDS: Mirtazapine 15 MG TAB 30 MG PO (22:10)
[2021-03-14] MEDS: Melatonin 3 MG TAB 6 MG PO (22:10)
[2021-03-14 23:42] VITALS: BP 143/81; PULSE 80; RESP 19; TEMP 37.1; O2SAT 92
--- NOTE | 2021-03-15 | DI.RAD_ITS ---
Exam(s) XR PORTABLE CHEST AP EXAM: XR PORTABLE CHEST AP CLINICAL HISTORY: crackles TECHNIQUE: 2D digital imaging was performed. COMPARISON: CR XR ABDOMEN FLAT UPRIGHT from 02/22/2021 CR XR ABDOMEN FLAT UPRIGHT from 02/22/2021 CR,XR XR ABDOMEN FLAT UPRIGHT from 02/23/2021 FINDINGS: LUNGS: Clear. No pleural abnormality seen. HEART: Normal. MEDIASTINUM: Normal. BONES: Spinal hardware cervical thoracic junction. Mild scoliosis midthoracic spine. IMPRESSION: No acute pulmonary findings. DATA REPOSITORY: RADIATION DOSE DELIVERED:
[2021-03-15] MEDS: Lactated Ringers 1,000 ML 100 ML IV ×2 (00:27→11:38)
[2021-03-15 03:12] VITALS: BP 129/78; PULSE 89; RESP 20; O2SAT 95
[2021-03-15 07:32] VITALS: BP 131/78; PULSE 86; RESP 18; TEMP 37.3; O2SAT 99
[2021-03-15] MEDS: DULoxetine 30 MG CAP PO (07:36)
[2021-03-15] MEDS: Pantoprazole 40 MG TABCR PO (07:36)
[2021-03-15] MEDS: Midodrine 2.5 MG TAB PO ×2 (07:36→19:59)
[2021-03-15] MEDS: busPIRone 5 MG TAB 10 MG PO ×3 (07:36→19:59)
[2021-03-15] MEDS: Multivitamin w/Minerals TAB 1 TAB PO (07:37)
[2021-03-15] MEDS: Protein Nutritional Supplement 16 GM 1 OUNCE PACKET PO ×3 (07:37→20:00)
[2021-03-15] MEDS: Lactobacillus Acidophilus CAP 1 CAP PO ×3 (07:37→19:59)
[2021-03-15] MEDS: Ascorbic Acid 500 MG TAB PO ×2 (07:37→19:59)
[2021-03-15] MEDS: Baclofen 10 MG TAB 5 MG PO ×3 (07:37→20:00)
[2021-03-15] MEDS: Carbamide Peroxide 15 ML BTL AU ×2 (07:52→20:01)
[2021-03-15] MEDS: Simethicone 80 MG CHEW 40 MG PO ×3 (07:52→18:15)
[2021-03-15] MEDS: Acetaminophen 325 MG TAB 650 MG PO ×2 (07:54→19:59)
--- NOTE | 2021-03-15 10:41 | W.NUTRFU ---
Date of service: 03/15/21 Time of Service: 10:42 Nutritional Follow up NOTE: Bruce continues to meet increased nutrient needs for optimal wound healing with meal plan, ensure BID, supplements (liquid protein, MVI, Vit C and Zinc). Labs indicate CRP trending downward. Wound improving per nursing, continues with wound vac. Will continue to follow. Time Spent in Nutritional Counseling and Treatment: 5
--- NOTE | 2021-03-15 10:45 | ANES.PREOP_ITS ---
General Info Date of Service Date Performed: 03/15/21 Height: 6 ft 2 in Weight: 95 kg Body Mass Index (BMI): 26.9 Meds Allergies and Home Medications Allergies Allergy/AdvReac Type Severity Reaction Status Date / Time No Known Allergies Allergy Unverified 11/26/18 03:46 Home Medication Medication Instructions Recorded Lactobacillus acidoph-L.bulgaricus 1 tab PO TID tab 01/29/21 1 million cell tablet acetaminophen 500 mg capsule 1,000 mg PO Q8H PRN PRN cap 01/29/21 albuterol sulfate 90 mcg/actuation 2 inh INHALATION Q4H PRN 01/29/21 breath activated powder inhaler apixaban 5 mg tablet 5 mg PO BID 01/29/21 bisacodyl 10 mg rectal suppository 10 mg NV DAILY PRN 01/29/21 buspirone 10 mg tablet 10 mg PO TID tab 01/29/21 diclofenac sodium 1 % topical gel 1 applic TOPICAL Q6H PRN g 01/29/21 docusate sodium 100 mg capsule 100 mg PO BID 01/29/21 lactulose 20 gram/30 mL oral 30 ml PO DAILY ml 01/29/21 solution magnesium hydroxide 400 mg/5 mL 30 ml PO DAILY PRN 01/29/21 oral suspension melatonin 5 mg tablet 5 mg PO HS PRN tab 01/29/21 midodrine 2.5 mg tablet 5 mg PO BID tab 01/29/21 mirtazapine 45 mg tablet 45 mg PO QHS 01/29/21 phenyleph-shark liver 1 applic NV Q6H PRN 01/29/21 ycp-onprsd-dal rectal cream polyethylene glycol 3350 17 17 g PO DAILY 01/29/21 gram/dose oral powder sennosides 8.6 mg capsule 17.2 mg PO BID 01/29/21 tizanidine 2 mg capsule 4 mg PO Q6H PRN cap 01/29/21 baclofen 5 mg PO Q6H PRN 02/20/21 ondansetron HCl [Zofran] 4 mg PO Q8H PRN 02/20/21 sodium phosphates [Fleet Enema] 118 ml NV PRN PRN 02/20/21 zolpidem 5 mg PO HS 02/20/21 Current Visit Medications: Current Medications Generic Name Dose Route Start Last Admin Trade Name Freq PRN Reason Stop Dose Admin Acetaminophen 650 mg 05/01/21 12:47 03/15/21 07:54 Acetaminophen 325 Mg Tab PO 650 mg Q4H PRN PRN Administration Acidophilus/Pectin 1 cap 03/02/21 20:00 03/15/21 07:37 Lactobacillus Acidophilus Cap PO 1 cap TID ALDEN Administration Albuterol Sulfate 0 puff 03/02/21 12:48 Albuterol Hfa 6.7 Gm 200 Puff Inh IH Q4H PRN PRN Apixaban 5 mg 03/02/21 20:00 03/14/21 09:30 Apixaban 5 Mg Tab PO 5 mg BID ALDEN Administration Ascorbic Acid 500 mg 03/02/21 20:00 03/15/21 07:37 Ascorbic Acid 500 Mg Tab PO 500 mg BID ALDEN Administration Baclofen 5 mg 03/08/21 08:30 03/15/21 07:37 Baclofen 10 Mg Tab PO 5 mg QID ALDEN Administration Bisacodyl 10 mg 03/02/21 12:49 03/12/21 16:28 Bisacodyl 10 Mg Supp NV 10 mg DAILY PRN PRN Administration Buspirone HCl 10 mg 03/02/21 20:00 03/15/21 07:36 Buspirone 5 Mg Tab PO 10 mg TID ALDEN Administration Carbamide Peroxide 0 ml 03/14/21 20:00 03/15/21 07:52 Carbamide Peroxide 15 Ml Btl AU 5 drp BID ALDEN Administration Dimethicone/Zinc Oxide 0 gm 03/02/21 12:46 Michell Protect Cream 142 Gm Tube TP PRN PRN Docusate Sodium 100 mg 03/02/21 12:54 Docusate Sodium 100 Mg Cap PO BID PRN PRN prn Duloxetine HCl 30 mg 03/03/21 08:30 03/15/21 07:36 Duloxetine 30 Mg Cap PO 30 mg DAILY ALDEN Administration Hydromorphone HCl 2 mg 03/02/21 12:55 03/14/21 10:05 Hydromorphone 2 Mg Tab PO 2 mg Q3H PRN PRN Administration Sodium Chloride 500 mls @ 0 mls/hr 03/02/21 12:51 Saline 500ml Bag IV PRN PRN As Directed Ringer's Solution 1,000 mls @ 100 mls/hr 03/15/21 00:00 03/15/21 00:27 IV 100 mls/hr INFUSION ALDEN Administration Ibuprofen 600 mg 03/14/21 13:42 Ibuprofen 600 Mg Tab PO TID PRN PRN Iron/Minerals/Multivitamins 1 tab 03/03/21 08:30 03/15/21 07:37 Multivitamin W/Minerals Tab PO 1 tab DAILY ALDEN Administration Magnesium Hydroxide 30 ml 03/02/21 12:52 Milk Of Magnesia 30 Ml Cup PO DAILY PRN PRN Melatonin 6 mg 03/02/21 22:00 03/14/21 22:10 Melatonin 3 Mg Tab PO 6 mg HS ALDEN Administration Midodrine 2.5 mg 03/07/21 20:00 03/15/21 07:36 Midodrine 2.5 Mg Tab PO 2.5 mg BID ALDEN Administration Mirtazapine 30 mg 03/02/21 22:00 03/14/21 22:10 Mirtazapine 15 Mg Tab PO 30 mg HS ALDEN Administration Multi-Ingredient Supplement 1 ounce 03/02/21 20:00 03/15/21 07:37 Protein Nutritional Supplement 16 Gm 1 Ounce Packet PO 1 ounce TID ALDEN Administration Pantoprazole Sodium 40 mg 03/03/21 07:30 03/15/21 07:36 Pantoprazole 40 Mg Tabcr PO 40 mg DAILY@0730 ALDEN Administration Polyethylene Glycol 17 gm 03/02/21 12:53 Polyethylene Glycol 3350 17 Gm Packet PO BID PRN PRN prn Prucalopride 2 mg 03/03/21 08:30 03/15/21 10:38 Prucalopride 2 Mg Tab PO Not Given DAILY [facility] Psyllium Hydrophilic Mucilloid 1 each 03/03/21 08:30 03/15/21 10:38 Psyllium Pkt PO Not Given DAILY ALDEN Sennosides 2 tab 03/02/21 12:53 Senna Tab PO DAILY PRN PRN prn Simethicone 40 mg 03/02/21 18:00 03/15/21 07:52 Simethicone 80 Mg Chew PO 40 mg PC ALDEN Administration Sodium Chloride 10 ml 03/02/21 12:51 Normal Saline Flush 10 Ml Syr IVP PRN PRN Zolpidem Tartrate 10 mg 03/02/21 22:00 03/14/21 22:09 Zolpidem 10 Mg Tab PO 10 mg HS ALDEN Administration PFSH Active Problems Active Problems: Problem Status Onset Code H/O deep venous thrombosis Z86.718 Major depressive disorder F32.9 Quadriplegia G82.50 UTI (urinary tract infection) N39.0 Discharge planning issues Z02.9 DVT prophylaxis Z29.9 Decubitus skin ulcer L89.90 Constipation K59.00 Neurogenic bladder N31.9 Medical History Medical History (Updated 03/09/21 @ 09:56 by Lamar Murillo MD) Acute embolism and thrombosis of deep vein of right lower extremity Anxiety disorder C. difficile colitis Dislocation of C6/C7 cervical vertebrae DVT (deep venous thrombosis) Fall down embankment Fusion of spine Hypotension Major depressive disorder Neurogenic bladder Quadriplegia Tobacco Smoking/Tobacco Use Status: Never Alcohol Alcohol Intake: current Alcohol intake frequency: a few times a week Substance Use Substance use: Occasionally Substance use type: marijuana Vital Signs and Lab Results Vital Signs Most Recent Vital Signs in EMR: Most Recent Vital Signs Temp Pulse Resp BP Pulse Ox 37.3 C 86 18 131/78 99 03/15/21 07:32 03/15/21 07:32 03/15/21 07:32 03/15/21 07:32 03/15/21 07:32 Lab Results Result Diagrams: 03/10/21 06:18 03/10/21 06:18 Blood Type / Crossmatch: No Data to Display Complete Blood Count: White Blood Count 7.34 10^3/uL (4.4-10.8) 03/10/21 06:18 03/10/21 Red Blood Count 3.65 10^6/uL (4.36-5.78) L 03/10/21 06:18 03/10/21 Hemoglobin 9.7 g/dL (13.5-17.5) L 03/10/21 06:18 03/10/21 Hematocrit 31.0 % (40.0-50.0) L 03/10/21 06:18 03/10/21 Platelet Count 305 10^3/uL (130-400) 03/10/21 06:18 03/10/21 Complete Metabolic Panel: Sodium Level 141 mmol/L (136-145) 03/10/21 06:18 03/10/21 Potassium Level 4.2 mmol/L (3.5-5.1) 03/10/21 06:18 03/10/21 Chloride Level 105 mmol/L (98-107) 03/10/21 06:18 03/10/21 Carbon Dioxide Level 26.3 mmol/L (21.0-32.0) 03/10/21 06:18 03/10/21 Blood Urea Nitrogen 28 mg/dL (7-18) H 03/10/21 06:18 03/10/21 Creatinine 0.8 mg/dL (0.70-1.30) 03/10/21 06:18 03/10/21 Magnesium Level 1.9 mg/dL (1.8-2.4) 03/10/21 06:18 03/10/21 Calcium Level 9.7 mg/dL (8.5-10.1) 03/10/21 06:18 03/10/21 Albumin 2.7 g/dL (3.4-5.0) L 02/27/21 06:10 02/27/21 Glucose Level 109 mg/dL (74-106) H 03/10/21 06:18 03/10/21 C-Reactive Protein 2.65 mg/dL (0.0-0.3) H 03/10/21 06:18 03/10/21 Liver Function Panel: Alanine Aminotransferase (ALT/SGPT) 33 U/L (16-63) 02/20/21 17:20 02/20/21 Aspartate Amino Transf (AST/SGOT) 11 U/L (15-37) L 02/20/21 17:20 02/20/21 Coagulation Panel: No Data to Display Cardiac Panel: No Data to Display Arterial Blood Gas: No Data to Display Venous Blood Gas: Venous Blood Lactate 1.3 mmol/L (0.6-1.4) 02/28/21 10:00 02/28/21 Pancreas Panel: Lipase 225 U/L (73-393) 02/20/21 17:20 02/20/21 Thyroid Panel: Thyroid Stimulating Hormone (TSH) 4.82 uIU/mL (0.36-3.74) H 02/27/21 06:10 02/27/21 Infectious Disease: Coronavirus (COVID-19)(PCR) Negative (Negative) 02/20/21 20:17 02/20/21 Coronavirus 2019 Source Nasal/nares 02/20/21 20:17 02/20/21 Blood Cultures: No Data to Display Toxicology Panel: No Data to Display Imaging and Studies Imaging and Studies EKG Summary:: 02/20/21: NSR Anesthesia Assessment and Plan Airway Exam Known Difficult Airway: No Neck Circumference: Normal
--- NOTE | 2021-03-15 14:20 | W.PM.OP ---
Date of service: 03/15/21 Time of Service: 14:20 Operative Note Operative Note DATE OF PROCEDURE: 03/15/21 PRE-OP DIAGNOSIS: stage 4 decubutus ulcers- ischal, bilaterally POST-OP DIAGNOSIS: same possible osteo on the left PROCEDURE: Mild lateral sharp debridement ANESTHESIA TYPE: General:No Airway Refer to Anesthesia Record ESTIMATED BLOOD LOSS: 20 Patient was transported to: PACU Patient's condition: stable Procedure Description: Mr. Barrera is a 55-year-old male date of 1965. He has bilateral ischial decubitus ulcers stage IV and requires repeat debridement verbal consent is obtained from the patient as he is unable to use his arms to the right. It is witnessed by anesthesia nursing and the whole OR team. Patient is placed in the prone position with all bony surfaces padded. Anesthesia is administered per the department of anesthesia. He is not on antibiotics currently I do not feel that he requires antibiotics. He has been off his Eliquis for 24 hours. Timeout is performed the wounds are prepped and draped in usual sterile fashion using Betadine scrub solution wounds are debrided sharply electrocautery is used to provide hemostasis. Wounds are irrigated with saline. There is no purulent drainage. At the time of completion the wounds are as follows. Left: 5 x 5 x 3 cm at the maximum. Left appears to go down to the bone and does violate the periosteum. Bone feels soft. Bone biopsy was taken. Bone wax is placed in the defect to control bleeding. The right colon 4 x 4 x 3 cm at maximum dimensions. At 4 o'clock position there is a tunnel that comes up, 7 cm down. I think this does follow the except for Gustavo muscle. There are no fluid pockets. There is significant amount of deep edema and inflammatory reaction. I do not see that there is a significant amount of infection. The surrounding tissues intact. There is no signs of yeast. In the wound there packed wet-to-dry. I do not see any signs of any significant granulation tissue or any interval healing. Patient tolerated procedure well without complication and transferred to recovery room in stable condition
[2021-03-15 14:37] VITALS: BP 107/71; PULSE 85; RESP 17; TEMP 36.6; O2SAT 95
--- NOTE | 2021-03-15 14:50 | W.ANESPOSTOP ---
Postoperative Evaluation Date, Time and Location Date Performed: 03/15/21 Time Performed: 14:50 Patient Location: Day Surgery Unit Vital Signs Most Recent Imported Vital Signs: Most Recent Vital Signs Temp Pulse Resp BP Pulse Ox 36.6 C 85 17 107/71 95 03/15/21 14:37 03/15/21 14:37 03/15/21 14:37 03/15/21 14:37 03/15/21 14:37 Pain Score Most Recent Pain Score: Most Recent Pain Score Pain Level [Left Shoulder] 3 03/06/21 11:52 Pain Level 0 03/15/21 14:37 Assessment Mental Status: Awake (Alert & Oriented to Patient Baseline) Airway and Respiratory Function: Patent airway with normal (patient baseline) respiratory exam Cardiovascular Function: Hemodynamically Stable Hydration Status: Adequately Hydrated Nausea & Vomiting: No Nausea or Vomiting Pain: Pt. Denies Any Pain Peripheral Nerve Block: Patient did not receive a nerve block
--- NOTE | 2021-03-15 15:36 | PT.INTREAT ---
Date of service: 03/15/21 Time of Service: 11:00 PT Notes Visit Reasons: DECUBITIS ULCERS, QUADRAPLEGIC Inpatient Physical Therapy Treatment Note [facility] Date: 03/15/2021 PRECAUTIONS: Quadriplegic C6-C7, high risk for skin breakdown SUBJECTIVE: Favio reports that he had is meeting with [email or web address], and he is feeling discouraged as they told him he needs money in his bank account and he does not know where he will get the money. OBJECTIVE: Patient is pleasant and cooperative throughout session. PAIN: No c/o pain THEREX: Patient participated in functional movement activities with R UE for improved ability to write. He completes shoulder flexion, protraction, ER/IR, FA supination/pronation, wrist flexion/extension, gripping. Hold resisted strengthening activities due to elevated BP. VITALS: BP (taken by CASINO ASSISTANT MANAGER): 182/90 ASSESSMENT: Patient tolerated session well, without complaint of pain. 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 PLAN: Continue with UE strengthening and trunk/core strengthening, as tolerated. TREATMENT CODE/TIME: 30 minutes; 61389 x2 (11:00)
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
[2021-03-15] MEDS: Normal Saline Flush 10 ML SYR IVP (20:00)
[2021-03-15] MEDS: Ibuprofen 600 MG TAB PO (20:00)
[2021-03-15] MEDS: Zolpidem 10 MG TAB PO (21:35)
[2021-03-15] MEDS: Melatonin 3 MG TAB 6 MG PO (21:35)
[2021-03-15] MEDS: Mirtazapine 15 MG TAB 30 MG PO (21:35)
[2021-03-16 07:25] VITALS: BP 132/79; PULSE 74; RESP 17; TEMP 37.1; O2SAT 98
[2021-03-16 07:48] LABS: Abs Immature Grans 0.03 10^3/uL (0.0-0.06); Absolute Basophil Count 0.03 10^3/uL (0.0-0.2); Absolute Eosinophil Count 0.35 10^3/uL (0.0-0.7); Absolute Lymphocyte Count 1.58 10^3/uL (1.2-3.4); Absolute Monocyte Count 0.72 10^3/uL (0.1-0.8); Absolute Neutrophil Count 4.89 10^3/uL (1.2-6.7); Basophils % 0.4; Eosinophils % 4.6; HCT 29.5 % (40.0-50.0); HGB 9.3 g/dL (13.5-17.5); Immature Grans % 0.4; Lymphocytes % 20.8; MCH 26.6 pg (27.0-33.0); MCHC 31.5 % (32.0-36.0); MCV 84.3 fL (80-95); MPV 10.5 fL (8.0-11.0); Monocytes % 9.5; Neutrophils % 64.3; Nucleated RBC 0 %; Platelet Count 272 10^3/uL (130-400); RDW 14.2 % (11.8-14.1); RDW-SD 43.4 fL
[2021-03-16 07:54] LABS: Magnesium 1.9 mg/dL (1.8-2.4)
[2021-03-16 07:58] LABS: ALT 29 U/L (16-63); AST 14 U/L (15-37); Albumin 2.7 g/dL (3.4-5.0); Alkaline Phosphatase 75 U/L (46-116); BUN 31 mg/dL (7-18); Bilirubin, Total 0.3 mg/dL (0.2-1.0); C-Reactive Protein 12.91 mg/dL (0.0-0.3); CREATININE 0.9 mg/dL (0.70-1.30); Calcium 9.6 mg/dL (8.5-10.1); Chloride 103 mmol/L (98-107); Glucose 108 mg/dL (74-106); Potassium 4.2 mmol/L (3.5-5.1); Prothrombin Time 10.3 sec (9.3-11.0); Sodium 140 mmol/L (136-145)
[2021-03-16] MEDS: Simethicone 80 MG CHEW 40 MG PO ×3 (08:14→17:55)
[2021-03-16] MEDS: Midodrine 2.5 MG TAB PO ×2 (08:14→20:16)
[2021-03-16] MEDS: DULoxetine 30 MG CAP PO (08:15)
[2021-03-16] MEDS: Ascorbic Acid 500 MG TAB PO ×2 (08:15→20:15)
[2021-03-16] MEDS: busPIRone 5 MG TAB 10 MG PO ×3 (08:15→20:15)
[2021-03-16] MEDS: Pantoprazole 40 MG TABCR PO (08:15)
[2021-03-16] MEDS: Multivitamin w/Minerals TAB 1 TAB PO (08:15)
[2021-03-16] MEDS: Lactobacillus Acidophilus CAP 1 CAP PO ×3 (08:15→20:16)
[2021-03-16] MEDS: Protein Nutritional Supplement 16 GM 1 OUNCE PACKET PO ×3 (08:16→20:16)
[2021-03-16] MEDS: Psyllium PKT 1 EACH PO (08:16)
[2021-03-16] MEDS: Baclofen 10 MG TAB 5 MG PO ×4 (08:16→20:13)
[2021-03-16] MEDS: Carbamide Peroxide 15 ML BTL AU ×2 (08:17→20:16)
[2021-03-16] MEDS: HYDROmorphone 2 MG TAB PO (10:20)
--- NOTE | 2021-03-16 11:30 | PGE_ITS ---
Date of Service Date of service: 03/16/21 Time of Service: 11:30 Assessment and Plan Assessment and plan (1) H/O deep venous thrombosis: Status: Chronic (2) Quadriplegia: Status: Chronic (3) Decubitus skin ulcer: Status: Acute Assessment and plan: Iron supplementation to increase hemoglobin to maximize wound Continue wound VAC today Resume Eliquis Thursday. Unless there is a significant amount of bleeding from the wound VAC, then do not resume the Eliquis on Thursday Discussed with hospitalist. I will discuss the case with anesthesia and see if he is appropriate to consider doing a colostomy at [facility]. There could be anesthetic complications because of his quadriplegia. Maximize protein to encourage wound healing. Vitamin C and zinc supplementation for wound healing Reposition every 2 hours Continue PT and OT Awaiting bone biopsy cultures to see if there is any osteomyelitis. He is not currently on antibiotic. Nor do I feel they are acutely required Qualifiers: Laterality: unspecified laterality Pressure injury location: buttock Pressure injury stage: unstageable Qualified Code(s): L89.300 - Pressure ulcer of unspecified buttock, unstageable (4) Decubitus ulcer of buttock, stage 4: Status: Acute Assessment and plan: ? Size:?right left buttock Width ???4cm Width: 5 cm Length?4cm length: 5 Depth?3cm depth 3 cm this does go all the way down to the bone and violates the periosteum ?at maxium dimension at maximum dimension Undermining: Minimal tunneling: at 4 o'clock position, 7 cm tunneling down the biceps for femoris muscle ? Wound Base: ?granular:minimmal 5%-bilateral ? Slough: 10% -lots of edema and minimal healing. Tendons are exposed-bilateral ? Surrounding Tissue: intact-bilateral ? Pain: Minimal ? Signs of infection: No acute infection-bilateral Shows chronic inflammation and minimal healing?bilateral ? Abx: None Wound location: Bilateral buttock ? ? Vascular status: Patient has a history of smoking prior to accident Protein status:? 2.7 Pressure offloading: Turn every 2 hours and wound VAC Smoker: None currently Diabetes: No (5) Neurogenic bladder: Status: Chronic Assessment and plan: -culture urine from the pereyra line and not the bag. -may have chronic colonization may need to change tube Subjective Subjective Interval history since last seen: I did personally review his wounds today 30 minutes were spent in direct care of patient discussing his care with the hospitalist team, wound care team, and pharmacy. Objective Last Vital Signs Temp 37.1 C 03/16/21 07:25 Pulse 74 03/16/21 07:25 Resp 17 03/16/21 07:25 BP 132/79 03/16/21 07:25 Pulse Ox 98 03/16/21 07:25 Laboratory Results - last 24 hr 03/16/21 03/16/21 03/16/21 07:20 07:20 07:20 WBC 7.60 RBC 3.50 L Hgb 9.3 L Hct 29.5 L MCV 84.3 MCH 26.6 L MCHC 31.5 L RDW 14.2 H Plt Count 272 MPV 10.5 Immature Gran % 0.4 Neutrophils % 64.3 Lymphocytes % 20.8 Monocytes % 9.5 Eosinophils % 4.6 Basophils % 0.4 Nucleated RBC % 0 Absolute Neutrophils 4.89 Absolute Lymphocytes 1.58 Absolute Monocytes 0.72 Absolute Eosinophils 0.35 Absolute Basophils 0.03 PT INR Sodium 140 Potassium 4.2 Chloride 103 Carbon Dioxide 29.0 Anion Gap 8.0 BUN 31 H Creatinine 0.9 Estimated GFR/1.73 m2 >= 60.00 Glucose 108 H Calcium 9.6 Magnesium 1.9 Total Bilirubin 0.3 AST 14 L ALT 29 Alkaline Phosphatase 75 C-Reactive Protein 12.91 H Total Protein 7.0 Albumin 2.7 L 03/16/21 07:20 WBC RBC Hgb Hct MCV MCH MCHC RDW Plt Count MPV Immature Gran % Neutrophils % Lymphocytes % Monocytes % Eosinophils % Basophils % Nucleated RBC % Absolute Neutrophils Absolute Lymphocytes Absolute Monocytes Absolute Eosinophils Absolute Basophils PT 10.3 INR 1.0 Sodium Potassium Chloride Carbon Dioxide Anion Gap BUN Creatinine Estimated GFR/1.73 m2 Glucose Calcium Magnesium Total Bilirubin AST ALT Alkaline Phosphatase C-Reactive Protein Total Protein Albumin
--- NOTE | 2021-03-16 11:31 | PT.INTREAT ---
PT Notes Visit Reasons: DECUBITIS ULCERS, QUADRAPLEGIC Inpatient Physical Therapy Treatment Note [facility] Date: 03/16/21 OBJECTIVE: THEREX: Pt completed UE strengthening ther ex as per flow sheet. Pt did utilize a 1# wt with his UE strengthening today. Pt completed hand writing activities as well. ASSESSMENT: Pt tolerated today's session well. Pt's L shoulder is still sore but he was able to tolerate the UE strengthening well as long as he did not complete any ER. PLAN: Cont as per PT POC. TREATMENT CODE/TIME: 10-10:20 TP (20)
[2021-03-16 11:50] LABS: Iron 19 ug/dL (65-175); Total Iron Binding Capacity 200 ug/dL (250-450); Transferrin Sat 10 % (20-55)
[2021-03-16 12:18] LABS: Ferritin 353 ng/mL (26-388); TSH 5.86 uIU/mL (0.36-3.74); Vitamin B12 471 pg/mL (193-986)
[2021-03-16 12:26] LABS: C-Reactive Protein 13.41 mg/dL (0.0-0.3)
[2021-03-16] MEDS: IRON SUCROSE COMPLEX 300 MG in Normal Saline 250 ML 167 MG IVPB (14:22)
[2021-03-16 15:17] VITALS: BP 137/80; PULSE 84; RESP 17; TEMP 37; O2SAT 98
[2021-03-16] MEDS: Acetaminophen 325 MG TAB 650 MG PO (15:19)
[2021-03-16] MEDS: Normal Saline Flush 10 ML SYR IVP (16:04)
[2021-03-16 20:31] LABS: Bilirubin Negative (Negative); Blood Large (Negative); Clarity Clear (Clear); Glucose Negative (Negative); Ketones Negative (Negative); Leukocyte Esterase Trace (Negative); Nitrite Negative (Negative); Specific Gravity >= 1.030 (1.005-1.025); Urobilinogen 0.2 EU/dL (Up TO 0.2); pH 5.5 (5-8)
[2021-03-16] MEDS: Zolpidem 10 MG TAB PO (21:28)
[2021-03-16] MEDS: Melatonin 3 MG TAB 6 MG PO (21:28)
[2021-03-16] MEDS: Mirtazapine 15 MG TAB 30 MG PO (21:28)
[2021-03-16 21:44] LABS: Bacteria Negative HPF (Negative); C & S Indicated? Yes; Casts Negative LPF (Negative); Crystals Few Calcium Oxalate HPF (Negative); Epithelial Cells Negative HPF (Negative); Mucus Negative (Negative); Other Cells Negative (Negative); RBC >50 HPF (0-2); WBC >50 HPF (0-5)
[2021-03-16 23:08] VITALS: BP 120/69; PULSE 89; RESP 18; TEMP 36.3; O2SAT 95
[2021-03-17] MEDS: Acetaminophen 325 MG TAB 650 MG PO (01:26)
[2021-03-17 07:50] VITALS: BP 115/68; PULSE 88; RESP 18; TEMP 36.9; O2SAT 94
[2021-03-17] MEDS: Lactobacillus Acidophilus CAP 1 CAP PO ×2 (08:24→13:10)
[2021-03-17] MEDS: Psyllium PKT 1 EACH PO (08:24)
[2021-03-17] MEDS: Protein Nutritional Supplement 16 GM 1 OUNCE PACKET PO ×2 (08:24→13:10)
[2021-03-17] MEDS: Multivitamin w/Minerals TAB 1 TAB PO (08:24)
[2021-03-17] MEDS: DULoxetine 30 MG CAP PO (08:24)
[2021-03-17] MEDS: Ascorbic Acid 500 MG TAB PO (08:25)
[2021-03-17] MEDS: busPIRone 5 MG TAB 10 MG PO ×2 (08:25→13:10)
[2021-03-17] MEDS: Baclofen 10 MG TAB 5 MG PO ×2 (08:25→12:02)
[2021-03-17] MEDS: Midodrine 2.5 MG TAB PO (08:25)
[2021-03-17] MEDS: Simethicone 80 MG CHEW 40 MG PO ×2 (08:25→13:11)
[2021-03-17] MEDS: Pantoprazole 40 MG TABCR PO (08:25)
[2021-03-17] MEDS: Carbamide Peroxide 15 ML BTL AU (08:27)
[2021-03-17] MEDS: Apixaban 5 MG TAB PO (09:25)
--- NOTE | 2021-03-17 11:00 | PT.INTREAT ---
PT Notes Visit Reasons: DECUBITIS ULCERS, QUADRAPLEGIC Inpatient Physical Therapy Treatment Note [facility] Date: 03/17/21 OBJECTIVE: THEREX: Pt completed UE strengthening ther ex as per flow sheet, hand writing activities as per flow sheet, CFM to the L GT, and AAROM into shoulder flexion of the L Shoulder. ASSESSMENT: Pt tolerated today's session well. Pt still has some issues with L shoulder discomfort with ther ex so we modified exercises due to that. PLAN: Cont as per PT POC. TREATMENT CODE/TIME: 8:50-9:20 (30) TPx2
[2021-03-17 15:28] VITALS: BP 117/66; PULSE 69; RESP 18; TEMP 36.7; O2SAT 97
--- NOTE | 2021-03-17 15:37 | DSE_ITS ---
Date of service: 03/17/21 Time of Service: 15:37 DS: Diagnosis Discharge Diagnosis (1) Acute osteomyelitis of sacrum: Start date: 03/17/21 Start time: 15:39 Status: Acute Asessment and Plan: Patient had debridement with surgery on 03/15. Left appeared to go down to the bone and does violate the periosteum.? Bone felt soft and bone biopsy was taken.? Will obtain MRI to see extent of osteol Due to bleeding eliquis was held Biopsy revealed gram positive growing. he also has staph epi greater than 100,000 colonies growing in urine. CRP is 13. 41 he will need a PICC line and will be transitioned back to acute care. (2) Decubitus skin ulcer: Start date: 03/17/21 Start time: 15:43 Status: Acute Asessment and Plan: Weekly photos to manage progress, stage 4 Wound care following, arjo bed for off loading Surgery following Initiated on vanco Wound vac in place as above (3) UTI (urinary tract infection): Start date: 03/17/21 Start time: 15:45 Status: Acute Asessment and Plan: Positive urine culture growing staph epi greater than 100,000 colonies sensitive to vanco due to osteo and UTI will treat with vanco at this time until sensitivities grow out then will discuss with ID (4) H/O deep venous thrombosis: Start date: 03/17/21 Start time: 15:52 Status: Chronic Asessment and Plan: On eliquis, however at this time it is on hold d/t bleeding from surgical debridement. (5) Quadriplegia: Start date: 03/17/21 Start time: 15:52 Status: Chronic Asessment and Plan: loss of sensation from chest down. Voluntary arm movement but unable to move hands and feed himself. (6) Neurogenic bladder: Start date: 03/17/21 Start time: 15:54 Status: Chronic Asessment and Plan: He has a suprapubic cath discussed with Dr. Olson Discharge Plan Disposition Patient Disposition: [facility] INPATIENT Condition: Deteriorating Discharge Details Reason For Visit: DECUBITIS ULCERS, QUADRAPLEGIC Admit Date/Time: 03/02/21 14:07 Admit Provider: Jose Montoya Attending Provider: Jose Montoya Primary Care Provider: Polishuk,Rayna Hospital Course Hospital Course: 55 y.o male admitted to [facility] ED for constipation and diarrhea. PMH of quadriplegia since 10/2020 after falling, depression, neurogenic bladder with suprapubic catheter,, RLE DVT. On admission he was found to have a rectal impaction and multiple air-fluid levels on his abdominal CT scan.? He also has large decubiti of his buttocks over his rt and left ischial tuberosities.? He does not have any sensation from his chest down.? He can move his arms some but has little use of his hands.? His fingers are mostly numb.? He has no sensation of his lower extremities.? He has a suprapubic catheter in place.? He wants to be transferred to another rehab facility as he says he developed bedsores within 1 week of being admitted to the [facility] and rehab facility. He was admitted to M/S for further management. Wound care consult placed on admission, concern for necrosis and recommended surgery. Surgery was consulted regarding patient imaging and wounds. He was found to have large necrotic tissues on both sides. Imaging revealed obstipation with overflow incontinence, he was placed on bowel regimen to help promote motility of stool. After trying a couple of days and serial xrays he was taken to OR for csope for disimpaction of stool to prepare him for debridement of bilateral wounds. His apixaban was held and on 02/25 he was taken to OR for wound debridement with subsequent wound vac to be placed. POD 1 patient was again debrided at bedside for more necrotic tissue also revealing muscle, tendon and question of bone with osteo. MRI done osteomylitis r/o. Wound vac was placed on patient however initially he was stooling several times throughout the day and wound vac was not staying in place due to multiple wet stools. He was placed on optimal nutrition by dietary with vitamins and nutrition requirements. Optimal fiber and bowel regimen with goal of soft bowel daily and started on motegrity for Neurogenic bowel. His bowels slowed and wound vac was applied. He was also treated for UTI. E. Coli by culture. 10 days. Medically he is cleared. He would benefit from ostomy sooner than later to help maximize wound healing and for further prevention. He also has and arjo bed to help with wound healing. He was going to return to H/R on Thursday but they are unsure when they will be able to obtain a wound vac and they need to get preauth therefore he was transitioned to SB level 1 for PT/OT wound care. However over course of SB wounds became worse requiring further debridement on 03/[address] Gaspar. She debrided down to bone and bone was soft, therefore she did bone biopsy. His urine also was very cloudy and dark. U/a collected revealing staph epi greater than 100,000 colonies. Bone biopsy came back with gram positive daphne. Likely staph. He has been afebrile. No leukocytosis, however CRP went from 2.65 on 03/10 to 13.41 on 03/16. He will require PICC placement with IV vanco. Awaiting sensitivities at this time. Vanco initiated. MRI ordered to evaluate extent of osteo. Will place palliative consult and echo. Patient is tearful over news. Therefore he is being transitioned back to Acute care for further management. Home Meds and New Rx's Prescriptions: No Action acetaminophen 500 mg capsule 1,000 mg PO Q8H PRN PRNRF: 0 albuterol sulfate 90 mcg/actuation aerosol powdr breath activated 2 inh inhalation Q4H PRNRF: 0 apixaban 5 mg tablet 5 mg PO BID RF: 0 buspirone 10 mg tablet 10 mg PO TID RF: 0 docusate sodium [Colace] 100 mg capsule 100 mg PO BID RF: 0 bisacodyl [Dulcolax (bisacodyl)] 10 mg suppository 10 mg AR DAILY PRNRF: 0 Lactobacillus acidoph-L.bulgar [Floranex] 1 million cell tablet 1 tab PO TID RF: 0 lactulose 20 gram/30 mL solution 30 ml PO DAILY RF: 0 magnesium hydroxide 400 mg/5 mL suspension 30 ml PO DAILY PRNRF: 0 melatonin 5 mg tablet 5 mg PO HS PRNRF: 0 midodrine 2.5 mg tablet 5 mg PO BID RF: 0 polyethylene glycol 3350 [Miralax] 17 gram/dose powder 17 g PO DAILY RF: 0 mirtazapine 45 mg tablet 45 mg PO QHS RF: 0 phenyleph-shark [id number]-lyg Cream 1 applic AR Q6H PRNRF: 0 senna 8.6 mg capsule 17.2 mg PO BID RF: 0 tizanidine 2 mg capsule 4 mg PO Q6H PRNRF: 0 diclofenac sodium [Voltaren] 1 % gel 1 applic topical Q6H PRNRF: 0 baclofen 5 mg Tablet 5 mg PO Q6H PRNRF: 0 Fleet Enema 19-7 gram/118 mL Enema 118 ml AR PRN PRNRF: 0 ondansetron HCl [Zofran] 4 mg Tablet 4 mg PO Q8H PRNRF: 0 zolpidem 5 mg Tablet 5 mg PO HS RF: 0 Discharge Instructions Additional Instructions: Transition to Acute care Referrals: [facility] [OTHER] - (Ostomy referral) Activity:: bed rest with reposition Equipment/Supplies:: No Equipment Needed Diet:: high protein Discharge Orders Discharge Orders: Discharge Order (Routine); Ordered 03/17/21 Ordered By: Eliane Tolliver DS: Summary Time Spent with Patient providing and/or coordinating discharge services: Greater than 30 minutes Status at Discharge Functional status at discharge: bed bound Overall status at discharge: patient is not back to baseline Mental Status: other Speech and Movement: other Mood: other Affect: other (varies sometimes depressed but since starting cymbalta appears better) Exam Const General: cooperative, no acute distress and ill appearing chronically Nutritional Appearance: obese centrally obese Orientation: alert, awake and oriented x3 Eyes Visual Aguirre: normal visual aguirre by confrontation Pupils: PERRL EOM: EOM intact bilaterally Chest Chest: normal inspection of the chest Resp Effort & Inspection: normal respiratory effort Auscultation: clear to auscultation bilaterally GI Inspection: normal to inspection Auscultation: normal bowel sounds Back/Spine/Pelvis Thoracic/Lumbar Spine: thoraco-lumbar ROM limited Sacrum: other (decubitus ulcers unable to examine wound vac in place) Skin Wounds: wounds noted (unable to visualize wound vac in place) Neuro General: patient alert, patient awake and patient oriented x3 Cognition: normal cognition Speech: speech normal Psych Appearance: other Mental Status: other Speech and Movement: other Mood: other Affect: other (varies sometimes depressed but since starting cymbalta appears better) DS: Data Vitals/I&O Vitals and I&O: Vital Signs Temperature 36.7 C 03/17/21 15:28 Temperature Source Temporal Artery Scan 03/17/21 15:28 Pulse 69 03/17/21 15:28 Pulse Rhythm Regular 03/17/21 09:58 Respiratory Rate 18 03/17/21 15:28 Respiratory Effort Non-Labored 03/17/21 09:58 Respiratory Depth Normal 03/17/21 09:58 Respiratory Pattern Normal 03/17/21 09:58 Blood Pressure 117/66 03/17/21 15:28 Pulse Oximetry 97 03/17/21 15:28 Oxygen Delivery Method Room Air 03/17/21 15:28 Oxygen Flow Rate 0 03/17/21 15:28 Pain Level 0 03/17/21 15:28 Comment 03/15/21 03:12 Intake & Output 03/16/21 03/17/21 03/17/21 23:59 11:59 23:59 Intake Total 480 / 960 490 / 970 480 / 970 Output Total 1250 / 1750 700 / 700 Balance -770 / -790 -210 / 270 480 / 270 Intake: IV 10 / Oral 480 / 960 480 / 960 480 / 960 Output: Urine 1250 / 1750 700 / 700 Other: Urine Color Light Kay Dark Kay Urine Appearance Cloudy Cloudy Data Completed and Pending Completed studies during hospitalization [Text1]: Exam(s) XR PORTABLE CHEST AP EXAM:? XR PORTABLE CHEST AP CLINICAL HISTORY:? crackles TECHNIQUE:? 2D digital imaging was performed. COMPARISON:? CR XR ABDOMEN FLAT ? UPRIGHT from 02/22/2021 CR XR ABDOMEN FLAT ? UPRIGHT from 02/22/2021 CR,XR XR ABDOMEN FLAT ? UPRIGHT from 02/23/2021 FINDINGS: LUNGS: Clear. No pleural abnormality seen. HEART: Normal. MEDIASTINUM: Normal. BONES: Spinal hardware cervical thoracic junction.? Mild scoliosis midthoracic spine. IMPRESSION: No acute pulmonary findings. Labs on day of discharge: Labs from last 24 hours 03/16/21 18:49 Urine Color Yellow Urine Clarity Clear Urine pH 5.5 Ur Specific [place] >= 1.030 H Urine Protein 30 H Urine Ketones Negative Urine Blood Large H Urine Nitrite Negative Urine Bilirubin Negative Urine Urobilinogen 0.2 Ur Leukocyte Esterase Trace H Urine RBC >50 H Urine WBC >50 H Ur Epithelial Cells Negative Urine Crystals Few calcium oxalate Urine Bacteria Negative Urine Casts Negative Urine Mucus Negative Urine Other Negative Ur Culture Indicated? Yes Urine Glucose Negative 03/16/21 18:49 Urine - Reflex from Ua Urine Culture - Pending Preliminary micro results at discharge 03/16/21 10:45 Blood Culture - Preliminary Blood NO GROWTH 24 HOURS 03/16/21 10:30 Blood Culture - Preliminary Blood NO GROWTH 24 HOURS 03/16/21 18:49 Urine Culture - Pending Urine - Reflex from Count includes the [facility] Medical History Acute embolism and thrombosis of deep vein of right lower extremity Anxiety disorder C. difficile colitis Dislocation of C6/C7 cervical vertebrae DVT (deep venous thrombosis) Fall down embankment Fusion of spine Hypotension Major depressive disorder Neurogenic bladder Quadriplegia Social History Smoking/Tobacco Use Status: Never Smoking risk assessment performed?: Yes Alcohol Intake: current Alcohol Intake frequency: a few times a week Drug use: Occasionally Substance use type: marijuana Do you feel safe at home: Yes Do you feel safe in your relationship?: Yes
--- NOTE | 2021-03-18 08:52 | OTDS_ITS ---
Date of service: 03/18/21 Time of Service: 08:52 Occupational Therapy Notes Occupational Therapy Inpatient Discharge Summary Date: 03/18/21 Dates of Service: 03/04/21-03/18/21 Referring Doctor:Wendy Skinner NP OT Orders: Non-Urgent Precautions: Full, Fall, Standard *This document serves as a summary of care, no skilled OT services provided for this documentation* PATIENT PROFILE/ADMITTING DIAGNOSIS: Pt is a 55 year old male who presented to the ED from SNF for the following dx of major depressive disorder, quaridplegia, UTI, decubitus skin ulcers, constipation, and neurogenic bladder. He is re- evaluated at todays session under [facility] B1 level of care. Past Medical History: Medical History (Updated 02/20/21 @ 22:10 by Lauri Larry MD) Acute embolism and thrombosis of deep vein of right lower extremity Anxiety disorder C. difficile colitis Dislocation of C6/C7 cervical vertebrae Fall down embankment Fusion of spine Hypotension Major depressive disorder Neurogenic bladder Quadriplegia Social History/Home Situation: Pt currently residing at SNF where his DME needs are met. He is functionally requiring what he reports as Max (A) for everything. He can perform his eating routines although notes that its a mess for him and he gets everything all over him. He would like to have better function of his (B) UE. His hands are currently in a contracted position which is bothersome to him. Equipment owned/DME: DME needs met by SNF SUBJECTIVE:?NT OBJECTIVE: ROM: RUE shoulder flexion minimal, elbow WFL, wrist extension is fair, digits in contracted position L UE shoulder flexion minimal, elbow WFL, wrist extension is fair, digits in contracted position STRENGTH: RUE Staff Development Coordinator Rn strength is weak LUE Staff Development Coordinator Rn strength is weak SENSATION: decreased sensation in (B) FUNCTIONAL MOBILITY/ADLS: BATHING Pt has functional ROM to wash his face, not enough strength to perform this without (A) DRESSING Max (A) GROOMING Pt is able to bring hand to mouth for brushing his teeth but he requires (A) his lack of (B) UE strength limits his success in performance. TOILETING Max (A) EATING Able to (I) bring food to mouth, grasp equipment and chew and swallow without difficulty. Pt has notable fatigue but can perform this. BALANCE: Static sitting Good Dynamic Sitting Good ASSESSMENT: ? Patient is a 55-year-old male referred to occupational therapy services with diagnosis of major depressive disorder, quaridplegia, UTI, decubitus skin ulcer, constipation, neurogenic bladder. He was discharged from [facility] level of care and is currently being seen under acute level of care at this time. GOALS- not met unless specified. 1.? Grooming- pt will be mod (I) with brushing his teeth with mod vc throughout 2.? Dressing- Pt will be mod (A) with don and doffing shirt 3.? Bathing- pt will be able to (I) wash his face and (B) UE 4.? Eating- with adaptive equipment pt will be (I) with eating and wiping his face- met PLAN OF CARE/TREATMENT PLAN: [place] [facility] [place] to Acute level of care. DISCHARGE RECOMMENDATIONS Return to SNF vs. Home with 24 hour care givers. TREATMENT TIME/MINUTES/CODES N/A Michelle Pearce, OTR/L [facility]
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
== END 2021-03-17 16:25 | disposition short-term general hospital (02) | DRG 592 ==
PROVIDERS: Internal Medicine; Nurse Practitioner Family; Surgery; Admitting Provider Family Medicine; PCP Nurse Practitioner Family; Visit Provider Family Medicine
DX: G82.50 Quadriplegia, unspecified; M46.28 Osteomyelitis of vertebra, sacral and sacrococcygeal region; N39.0 Urinary tract infection, site not specified; L89.314 Pressure ulcer of right buttock, stage 4; L89.324 Pressure ulcer of left buttock, stage 4; F32.9 Major depressive disorder, single episode, unspecified; N31.9 Neuromuscular dysfunction of bladder, unspecified; Z86.718 Personal history of other venous thrombosis and embolism; S14.106S Unspecified injury at C6 level of cervical spinal cord, sequela; S12.500S Unspecified displaced fracture of sixth cervical vertebra, sequela; S12.600S Unspecified displaced fracture of seventh cervical vertebra, sequela; Z93.51 Cutaneous-vesicostomy status; F41.9 Anxiety disorder, unspecified; I95.9 Hypotension, unspecified; W17.81XS Fall down embankment (hill), sequela; Z79.01 Long term (current) use of anticoagulants; D64.9 Anemia, unspecified; B95.7 Other staphylococcus as the cause of diseases classified elsewhere
CPT/HCPCS: 51705; 36410; 36415; 80048; 80053; 84145; 87040; 87077; 97110; 97140; 97162; 97166; 97530; 97535; 99306; 99316; 71045; 81003; 81015; 82607; 82728; 83540; 83550; 83735; 84443; 85025; 85610; 86140; 87086; 87186; 99308; J1756

== ENCOUNTER 2021-03-15 12:58 | Day surgery (SDC) | payer BC, SELFPAY ==
--- NOTE | 2021-03-15 08:44 | W.ANESPRE ---
General Info Date of Service Date Performed: 03/15/21 Height: 6 ft 2 in Weight: 88 kg Body Mass Index (BMI): 24.9 Surgical Procedure: Operation Date: 03/15/21 12:10 Proposed Procedures Side Surgeon p Ischial Debridement Bilateral Bhumi Gaspar DO Meds Allergies and Home Medications Allergies Allergy/AdvReac Type Severity Reaction Status Date / Time No Known Allergies Allergy Unverified 11/26/18 03:46 Home Medication Medication Instructions Recorded Lactobacillus acidoph-L.bulgaricus 1 tab PO TID tab 01/29/21 1 million cell tablet acetaminophen 500 mg capsule 1,000 mg PO Q8H PRN PRN cap 01/29/21 albuterol sulfate 90 mcg/actuation 2 inh INHALATION Q4H PRN 01/29/21 breath activated powder inhaler apixaban 5 mg tablet 5 mg PO BID 01/29/21 bisacodyl 10 mg rectal suppository 10 mg NM DAILY PRN 01/29/21 buspirone 10 mg tablet 10 mg PO TID tab 01/29/21 diclofenac sodium 1 % topical gel 1 applic TOPICAL Q6H PRN g 01/29/21 docusate sodium 100 mg capsule 100 mg PO BID 01/29/21 lactulose 20 gram/30 mL oral 30 ml PO DAILY ml 01/29/21 solution magnesium hydroxide 400 mg/5 mL 30 ml PO DAILY PRN 01/29/21 oral suspension melatonin 5 mg tablet 5 mg PO HS PRN tab 01/29/21 midodrine 2.5 mg tablet 5 mg PO BID tab 01/29/21 mirtazapine 45 mg tablet 45 mg PO QHS 01/29/21 phenyleph-shark liver 1 applic NM Q6H PRN 01/29/21 [id number] rectal cream polyethylene glycol 3350 17 17 g PO DAILY 01/29/21 gram/dose oral powder sennosides 8.6 mg capsule 17.2 mg PO BID 01/29/21 tizanidine 2 mg capsule 4 mg PO Q6H PRN cap 01/29/21 baclofen 5 mg PO Q6H PRN 02/20/21 ondansetron HCl [Zofran] 4 mg PO Q8H PRN 02/20/21 sodium phosphates [Fleet Enema] 118 ml NM PRN PRN 02/20/21 zolpidem 5 mg PO HS 02/20/21 PFSH Active Problems Active Problems: Problem Status Onset Code H/O deep venous thrombosis Z86.718 Major depressive disorder F32.9 Quadriplegia G82.50 UTI (urinary tract infection) N39.0 Discharge planning issues Z02.9 DVT prophylaxis Z29.9 Decubitus skin ulcer L89.90 Constipation K59.00 Neurogenic bladder N31.9 Medical History Medical History (Updated 03/09/21 @ 09:56 by Lamar Murillo MD) Acute embolism and thrombosis of deep vein of right lower extremity Anxiety disorder C. difficile colitis Dislocation of C6/C7 cervical vertebrae DVT (deep venous thrombosis) Fall down embankment Fusion of spine Hypotension Major depressive disorder Neurogenic bladder Quadriplegia Tobacco Smoking/Tobacco Use Status: Never Alcohol Alcohol Intake: current Alcohol intake frequency: a few times a week Substance Use Substance use: Occasionally Substance use type: marijuana Vital Signs and Lab Results Lab Results Blood Type / Crossmatch: No Data to Display Complete Blood Count: White Blood Count 7.34 10^3/uL (4.4-10.8) 03/10/21 06:18 03/10/21 Red Blood Count 3.65 10^6/uL (4.36-5.78) L 03/10/21 06:18 03/10/21 Hemoglobin 9.7 g/dL (13.5-17.5) L 03/10/21 06:18 03/10/21 Hematocrit 31.0 % (40.0-50.0) L 03/10/21 06:18 03/10/21 Platelet Count 305 10^3/uL (130-400) 03/10/21 06:18 03/10/21 Complete Metabolic Panel: Sodium Level 141 mmol/L (136-145) 03/10/21 06:18 03/10/21 Potassium Level 4.2 mmol/L (3.5-5.1) 03/10/21 06:18 03/10/21 Chloride Level 105 mmol/L (98-107) 03/10/21 06:18 03/10/21 Carbon Dioxide Level 26.3 mmol/L (21.0-32.0) 03/10/21 06:18 03/10/21 Blood Urea Nitrogen 28 mg/dL (7-18) H 03/10/21 06:18 03/10/21 Creatinine 0.8 mg/dL (0.70-1.30) 03/10/21 06:18 03/10/21 Magnesium Level 1.9 mg/dL (1.8-2.4) 03/10/21 06:18 03/10/21 Calcium Level 9.7 mg/dL (8.5-10.1) 03/10/21 06:18 03/10/21 Albumin 2.7 g/dL (3.4-5.0) L 02/27/21 06:10 02/27/21 Glucose Level 109 mg/dL (74-106) H 03/10/21 06:18 03/10/21 C-Reactive Protein 2.65 mg/dL (0.0-0.3) H 03/10/21 06:18 03/10/21 Liver Function Panel: Alanine Aminotransferase (ALT/SGPT) 33 U/L (16-63) 02/20/21 17:20 02/20/21 Aspartate Amino Transf (AST/SGOT) 11 U/L (15-37) L 02/20/21 17:20 02/20/21 Coagulation Panel: No Data to Display Cardiac Panel: No Data to Display Arterial Blood Gas: No Data to Display Venous Blood Gas: Venous Blood Lactate 1.3 mmol/L (0.6-1.4) 02/28/21 10:00 02/28/21 Pancreas Panel: Lipase 225 U/L (73-393) 02/20/21 17:20 02/20/21 Thyroid Panel: Thyroid Stimulating Hormone (TSH) 4.82 uIU/mL (0.36-3.74) H 02/27/21 06:10 02/27/21 Infectious Disease: Coronavirus (COVID-19)(PCR) Negative (Negative) 02/20/21 20:17 02/20/21 Coronavirus 2019 Source Nasal/nares 02/20/21 20:17 02/20/21 Blood Cultures: No Data to Display Toxicology Panel: No Data to Display Anesthesia Assessment and Plan Anesthesia History Personal History: No History of Anesthesia Complications Family History: No Family History of Anesthesia Complications Exercise Tolerance Exercise Tolerance: Metabolic Equivalents>4 Pertinent Negatives Pertinent Negatives: No Symptoms of GERD Cardiac & Pulmonary Exam Cardiac Exam: Normal S1/S2 Heart Sounds Pulmonary Exam: Clear Bilateral Breath Sounds Airway Exam Known Difficult Airway: No Mallampati Class: 1 Mouth Opening: Normal (> 3cm) Thyromental Distance: Greater than 3 cm Neck Range of Motion: Limited ROM Neck Circumference: Normal Teeth Condition: Loose or Chipped ASA Classification ASA Score: ASA 3 Emergency Case?: No NPO Status NPO Status: NPO Clears >2 hours, Solids >8 hours Anesthesia Plan Resuscitation Status: Full Code Anesthesia Technique: MAC Anesthesia Airway Planned: Natural Airway Monitors Used: Standard Monitors
[2021-03-15 13:05] VITALS: BMI 24.9
--- NOTE | 2021-03-15 14:20 | ROE_ITS ---
Addenda The right buttock wound is 4 x 4 x 3 cm in its maximum dimensions. At the 4 o'clock position does tunneling down to about 7 cm along the course of, I believe, the biceps femorris muscle. *Reaction to dictation. Addendum dictated by Bhumi Marroquin DO 03/27/211746 <Electronically signed by Bhumi Marroquin DO> 03/27/211746 Transcribed By: Bhumi Marroquin 03/27/211746 Cosigned by Date of service: 03/15/21 Time of Service: 14:20 Operative Note Operative Note DATE OF PROCEDURE: 03/15/21 PRE-OP DIAGNOSIS: stage 4 decubutus ulcers- ischal, bilaterally POST-OP DIAGNOSIS: same possible osteo on the left PROCEDURE: Mild lateral sharp debridement ANESTHESIA TYPE: General:No Airway Refer to Anesthesia Record ESTIMATED BLOOD LOSS: 20 Patient was transported to: PACU Patient's condition: stable Procedure Description: Mr. Barrera is a 55-year-old male date of 1965. He has bilateral ischial decubitus ulcers stage IV and requires repeat debridement verbal consent is obtained from the patient as he is unable to use his arms to the right. It is witnessed by anesthesia nursing and the whole OR team. Patient is placed in the prone position with all bony surfaces padded. Anesthesia is administered per the department of anesthesia. He is not on antibiotics currently I do not feel that he requires antibiotics. He has been off his Eliquis for 24 hours. Timeout is performed the wounds are prepped and draped in usual sterile fashion using Betadine scrub solution wounds are debrided sharply electrocautery is used to provide hemostasis. Wounds are irrigated with saline. There is no purulent drainage. At the time of completion the wounds are as follows. Left: 5 x 5 x 3 cm at the maximum. Left appears to go down to the bone and does violate the periosteum. Bone feels soft. Bone biopsy was taken. Bone wax is placed in the defect to control bleeding. The right colon 4 x 4 x 3 cm at maximum dimensions. At 4 o'clock position there is a tunnel that comes up, 7 cm down. I think this does follow the except for Gustavo muscle. There are no fluid pockets. There is significant amount of deep edema and inflammatory reaction. I do not see that there is a significant amount of infection. The surrounding tissues intact. There is no signs of yeast. In the wound there packed wet-to-dry. I do not see any signs of any significant granulation tissue or any interval healing. Patient tolerated procedure well without complication and transferred to recovery room in stable condition cc: Dictated by: BHUMI MARROQUIN DO Dictated: 03/15Time: 142 <Electronically signed by Bhumi Marroquin DO> Date: 2154 Date: Date: Transcribed Date: 03/15/21 Transcribed Time: 1419By: ODETTE This is privileged, confidential information, intended only for the provider named. Any use or distribution by any person other than this provider is strictly prohibited. If you receive this report in error, please notify us immediately at [phone] and return the original report to us at the address above. Thank you.
--- NOTE | 2021-03-15 14:55 | W.ANESPOSTOP ---
Postoperative Evaluation Date, Time and Location Date Performed: 03/15/21 Time Performed: 14:35 Patient Location: Med/Surg Vital Signs Most Recent Manually Entered Vital Signs: Adult Blood Pressure: 107/71 Heart Rate: 85 Respirations: 17 Oxygen Saturation (%): 99 Temperature (C): 36.6 C Pain Score (0-10 Scale): 0 Assessment Mental Status: Awake (Alert & Oriented to Patient Baseline) Airway and Respiratory Function: Patent airway with normal (patient baseline) respiratory exam Cardiovascular Function: Hemodynamically Stable Hydration Status: Adequately Hydrated Nausea & Vomiting: No Nausea or Vomiting Pain: Pt. Denies Any Pain Peripheral Nerve Block: Patient did not receive a nerve block
[2021-03-15 14:57] VITALS: BP 107/71; PULSE 85; RESP 17; TEMPC 36.6; O2SAT 99
== END 2021-03-15 12:59 | disposition home or self-care (01) ==
LOC: SUR 03-20 10:56
PROVIDERS: PCP Nurse Practitioner Family; Referring Provider Surgery; Visit Provider Surgery
PROC: (CPT 11044; principal; 2021-03-15 12:00)
DX: M46.28 Osteomyelitis of vertebra, sacral and sacrococcygeal region (principal); L89.324 Pressure ulcer of left buttock, stage 4; G82.50 Quadriplegia, unspecified; B95.61 Methicillin susceptible Staphylococcus aureus infection as the cause of diseases classified elsewhere; B96.4 Proteus (mirabilis) (morganii) as the cause of diseases classified elsewhere; Z16.11 Resistance to penicillins; Z16.19 Resistance to other specified beta lactam antibiotics; B96.89 Other specified bacterial agents as the cause of diseases classified elsewhere
CPT/HCPCS: 11044; 11045 ×2; 11042; 87077; 87070; 87075; 87186; 87205; J2001; J2250

== ENCOUNTER 2021-03-17 16:06 | Inpatient (IN) | payer BC, SELFPAY ==
--- NOTE | 2021-03-17 16:17 | HPE_ITS ---
Date of service: 03/17/21 Time of Service: 16:18 Assessment and Plan Assessment and plan (1) Acute osteomyelitis of sacrum: Start date: 03/17/21 Start time: 16:24 Status: Acute Assessment and plan: Patient had debridement with surgery on 03/15. Left appeared to go down to the bone and does violate the periosteum.? Bone felt soft and bone biopsy was taken.? Will obtain MRI to see extent of osteol Due to bleeding eliquis was held Biopsy revealed gram positive growing. he also has staph epi greater than 100,000 colonies growing in urine. CRP is 13. 41 Will have palliative meet with patient as well. he will need a PICC line and is being transitioned back to acute care (2) Decubitus ulcer of buttock, stage 4: Start date: 03/17/21 Start time: 16:24 Status: Acute Assessment and plan: Weekly photos to manage progress, stage 4 Wound care following, [facility] bed for off loading ?Surgery following Initiated on vanco Wound vac in place as above Qualifiers: Laterality: left Qualified Code(s): L89.324 - Pressure ulcer of left buttock, stage 4 (3) UTI (urinary tract infection): Start date: 03/17/21 Start time: 16:25 Status: Acute Assessment and plan: Positive urine culture growing staph epi greater than 100,000 colonies sensitive to vanco due to osteo and UTI will treat with vanco at this time until sensitivities grow out then will discuss with ID Qualifiers: Urinary tract infection type: catheter-associated UTI Indwelling urinary catheter type: indwelling urethral catheter Encounter type: initial encounter Qualified Code(s): T83.511A - Infection and inflammatory reaction due to indwelling urethral catheter, initial encounter; N39.0 - Urinary tract infection, site not specified (4) H/O deep venous thrombosis: Start date: 03/17/21 Start time: 16:25 Status: Chronic Assessment and plan: On eliquis, however at this time it is on hold d/t bleeding from surgical debridement. (5) Quadriplegia: Start date: 03/17/21 Start time: 16:26 Status: Chronic Assessment and plan: ?loss of sensation from chest down. Voluntary arm movement but unable to move hands and feed himself (6) Neurogenic bladder: Start date: 03/17/21 Start time: 16:26 Status: Chronic Assessment and plan: Suprapubic catheter that will need to be exchanged Urology consulted. (7) Discharge planning issues: Start date: 03/17/21 Start time: 16: Status: Acute Assessment and plan: Patient has been denied by many facility due [facility] [place] He would benefit from a place as such, with a wound clinic. (8) DVT prophylaxis: Start date: 03/17/21 Start time: 16:28 Status: Chronic Assessment and plan: as above discussed with Dr. morel History of Present Illness History of Present Illness Chief Complaint: Osteo left buttocks, UTI, Quad Narrative: 55 y.o male admitted to [facility] ED for constipation and diarrhea. PMH of quadriplegia since 10/2020 after falling, depression, neurogenic bladder with suprapubic catheter,, RLE DVT. On admission he was found to have a rectal impaction and multiple air-fluid levels on his abdominal CT scan.? He also has large decubiti of his buttocks over his rt and left ischial tuberosities.? He does not have any sensation from his chest down.? He can move his arms some but has little use of his hands.? His fingers are mostly numb.? He has no sensation of his lower extremities.? He has a suprapubic catheter in place.? He wants to be transferred to another rehab facility as he says he developed bedsores within 1 week of being admitted to the [facility] and rehab facility. He was admitted to M/S for further management. Wound care consult placed on admission, concern for necrosis and recommended surgery. Surgery was consulted regarding patient imaging and wounds. He was fo und to have large necrotic tissues on both sides. Imaging revealed obstipation with overflow incontinence, he was placed on bowel regimen to help promote motility of stool. After trying a couple of days and serial xrays he was taken to OR for csope for disimpaction of stool to prepare him for debridement of bilateral wounds. His apixaban was held and on 02/25 he was taken to OR for wound debridement with subsequent wound vac to be placed. POD 1 patient was again debrided at bedside for more necrotic tissue also revealing muscle, tendon and question of bone with osteo. MRI done osteomylitis r/o. Wound vac was placed on patient however initially he was stooling several times throughout the day and wound vac was not staying in place due to multiple wet stools. He was placed on optimal nutrition by dietary with vitamins and nutrition requirements. Optimal fiber and bowel regimen with goal of soft bowel daily and started on motegrity for Neurogenic bowel. His bowels slowed and wound vac was applied. He was also treated for UTI. E. Coli by culture. 10 days. Medically he is cleared. He would benefit from ostomy sooner than later to help maximize wound healing and for further prevention. He also has and arjo bed to help with wound healing. He was going to return to H/R on Thursday but they are unsure when they will be able to obtain a wound vac and they need to get preauth therefore he was transitioned to SB level 1 for PT/OT wound care. However over course of SB wounds became worse requiring further debridement on 03/[address] Gaspar. She debrided down to bone and bone was soft, therefore she did bone biopsy. His urine also was very cloudy and dark. U/a collected revealing staph epi greater than 100,000 colonies. Bone biopsy came back with gram positive daphne. Likely staph. He has been afebrile. No leukocytosis, however CRP went from 2.65 on 03/10 to 13.41 on 03/16. He will require PICC placement with IV vanco. Awaiting sensitivities at this time. Vanco initiated. MRI ordered to evaluate extent of osteo. Will place palliative consult and echo. Patient is tearful over news. Therefore he is being transitioned back to Acute care for further management. Review of Systems All systems reviewed & are unremarkable except as noted in HPI and below PFSH Medical History Acute embolism and thrombosis of deep vein of right lower extremity Anxiety disorder C. difficile colitis Dislocation of C6/C7 cervical vertebrae DVT (deep venous thrombosis) Fall down embankment Fusion of spine Hypotension Major depressive disorder Neurogenic bladder Quadriplegia Social History Smoking/Tobacco Use Status: Never Smoking risk assessment performed?: Yes Alcohol Intake: current Alcohol Intake frequency: a few times a week Drug use: Occasionally Substance use type: marijuana Do you feel safe at home: Yes Do you feel safe in your relationship?: Yes Meds Allergies and Home Medications Allergies Allergy/AdvReac Type Severity Reaction Status Date / Time No Known Allergies Allergy Unverified 11/26/18 03:46 Home Medications Medication Instructions Recorded Confirmed Type Lactobacillus acidoph-L.bulgaricus 1 tab PO TID tab 01/29/21 03/02/21 History 1 million cell tablet acetaminophen 500 mg capsule 1,000 mg PO Q8H PRN PRN cap 01/29/21 03/02/21 History albuterol sulfate 90 mcg/actuation 2 inh INHALATION Q4H PRN 01/29/21 03/02/21 H istory breath activated powder inhaler apixaban 5 mg tablet 5 mg PO BID 01/29/21 03/02/21 History bisacodyl 10 mg rectal suppository 10 mg HI DAILY PRN 01/29/21 03/02/21 History buspirone 10 mg tablet 10 mg PO TID tab 01/29/21 03/02/21 History diclofenac sodium 1 % topical gel 1 applic TOPICAL Q6H PRN g 01/29/21 03/02/21 History docusate sodium 100 mg capsule 100 mg PO BID 01/29/21 03/02/21 History lactulose 20 gram/30 mL oral 30 ml PO DAILY ml 01/29/21 02/20/21 History solution magnesium hydroxide 400 mg/5 mL 30 ml PO DAILY PRN 01/29/21 03/02/21 History oral suspension melatonin 5 mg tablet 5 mg PO HS PRN tab 01/29/21 03/02/21 History midodrine 2.5 mg tablet 5 mg PO BID tab 01/29/21 03/02/21 History mirtazapine 45 mg tablet 45 mg PO QHS 01/29/21 03/02/21 History phenyleph-shark liver 1 applic HI Q6H PRN 01/29/21 02/20/21 History sra-ahjvkr-rco rectal cream polyethylene glycol 3350 17 17 g PO DAILY 01/29/21 03/02/21 History gram/dose oral powder sennosides 8.6 mg capsule 17.2 mg PO BID 01/29/21 03/02/21 History tizanidine 2 mg capsule 4 mg PO Q6H PRN cap 01/29/21 03/02/21 History baclofen 5 mg PO Q6H PRN 02/20/21 03/02/21 History ondansetron HCl [Zofran] 4 mg PO Q8H PRN 02/20/21 03/02/21 History sodium phosphates [Fleet Enema] 118 ml HI PRN PRN 02/20/21 03/02/21 History zolpidem 5 mg PO HS 02/20/21 03/02/21 History Exam Narrative Exam Narrative: General: cooperative, no acute distress and ill appearing chronically, pleasant lying in bed Nutritional Appearance: obese centrally obese Orientation: alert, awake and oriented x3 Visual Aguirre: normal visual aguirre by confrontation Pupils: PERRLA EOM: EOM intact bilaterally Chest: normal inspection of the chest Effort & Inspection: normal respiratory effort Auscultation: clear to auscultation bilaterally Inspection: normal to inspection Auscultation: normal bowel sounds Thoracic/Lumbar Spine: thoraco-lumbar ROM limited Sacrum: other (decubitus ulcers unable to examine wound vac in place) Skin Wounds: wounds noted (unable to visualize wound vac in place) Neuro General: patient alert, patient awake and patient oriented x3 Cognition: normal cognition Speech: speech normal no motor function from chest down though voluntary movements with bilateral arms unable to move hands Psych Appearance: other Mental Status: other Speech and Movement: other Mood: other Affect: rearful today. Realizes extent of illness COVID-19 Screening Have you, or household traveled for leisure in last 14 days?: No
[2021-03-17] MEDS: Simethicone 80 MG CHEW 40 MG PO (17:28)
[2021-03-17] MEDS: VANCOMYCIN/WATER (PEG) 1.5 GM/300 ML BAG IV (17:29)
[2021-03-17] MEDS: Normal Saline 500 ML 30 ML IV (17:29)
[2021-03-17 19:31] VITALS: BP 148/68; PULSE 112; RESP 18; TEMP 37.2; O2SAT 99
[2021-03-17] MEDS: Protein Nutritional Supplement 16 GM 1 OUNCE PACKET PO (19:43)
[2021-03-17] MEDS: Ascorbic Acid 500 MG TAB PO (19:43)
[2021-03-17] MEDS: Midodrine 2.5 MG TAB PO (19:43)
[2021-03-17] MEDS: Baclofen 10 MG TAB 5 MG PO (19:43)
[2021-03-17] MEDS: busPIRone 5 MG TAB 10 MG PO (19:44)
[2021-03-17] MEDS: Lactobacillus Acidophilus CAP 1 CAP PO (19:44)
[2021-03-17] MEDS: Senna TAB 2 TAB PO (19:44)
[2021-03-17] MEDS: Docusate Sodium 100 MG CAP PO (19:44)
[2021-03-17] MEDS: Carbamide Peroxide 15 ML BTL AU (21:43)
[2021-03-17] MEDS: Melatonin 3 MG TAB 6 MG PO (21:44)
[2021-03-17] MEDS: Zolpidem 10 MG TAB PO (21:44)
[2021-03-17] MEDS: Mirtazapine 15 MG TAB 30 MG PO (21:44)
[2021-03-17] MEDS: Acetaminophen 325 MG TAB 650 MG PO (21:50)
[2021-03-17 23:34] VITALS: BP 127/81; PULSE 94; RESP 20; TEMP 37.1; O2SAT 99
[2021-03-18] VITALS (8 sets, daily range): BP systolic 110–153; BP diastolic 69–85; PULSE 85–93; RESP 18–22; TEMP 37.1–39.1; O2SAT 95–97
[2021-03-18] MEDS: VANCOMYCIN/WATER (PEG) 1.5 GM/300 ML BAG IV ×3 (05:36→21:21)
[2021-03-18] MEDS: Normal Saline Flush 10 ML SYR IVP ×4 (05:37→23:23)
--- NOTE | 2021-03-18 06:00 | DI.MRI_ITS ---
Exam(s) MR PELVIS WO/W EXAM: MR PELVIS WO/W CLINICAL HISTORY: osteo of ischial tub COMPARISON: MR MR PELVIS WO/W from 02/28/2021 FINDINGS: The main finding here is left-sided decubitus ulcer with the subjacent tract and significant signal a bnormality in the ipsilateral left ischial tuberosity which exhibits confluent hypointensity on nonin fused non fat sat T1 weighted sequences which is highly specific for osteomyelitis. In addition, the re is abnormal signal on stir imaging and there is enhancement following contrast injection within th is bone. Involvement does not appear to extend to the acetabulum and hip at this time and there is a lso no involvement of the sacrum. Prostate gland is not enlarged. Seminal vesicles unremarkable. There is a percutaneous balloon tipp ed catheter in the urinary bladder which is in satisfactory position. There is no infection process along the course of this suprapubic catheter. The bladder is not distended. IMPRESSION: Findings are consistent with osteomyelitis of the left ischial tuberosity. DATA REPOSITORY:
[2021-03-18 07:11] LABS: Abs Immature Grans 0.03 10^3/uL (0.0-0.06); Absolute Basophil Count 0.03 10^3/uL (0.0-0.2); Absolute Eosinophil Count 0.35 10^3/uL (0.0-0.7); Absolute Lymphocyte Count 1.64 10^3/uL (1.2-3.4); Absolute Neutrophil Count 6.18 10^3/uL (1.2-6.7); Basophils % 0.3; Eosinophils % 3.9; HCT 29.5 % (40.0-50.0); HGB 9.3 g/dL (13.5-17.5); Immature Grans % 0.3; Lymphocytes % 18.2; MCH 26.9 pg (27.0-33.0); MCHC 31.5 % (32.0-36.0); MCV 85.3 fL (80-95); MPV 10.2 fL (8.0-11.0); Monocytes % 8.9; Neutrophils % 68.4; Nucleated RBC 0 %; Platelet Count 267 10^3/uL (130-400); RBC 3.46 10^6/uL (4.36-5.78); RDW-SD 43.4 fL; WBC 9.03 10^3/uL (4.4-10.8)
[2021-03-18 07:23] LABS: Anion Gap 9.1 mmol/L (3-11); BUN 24 mg/dL (7-18); CO2 25.9 mmol/L (21.0-32.0); CREATININE 0.7 mg/dL (0.70-1.30); Calcium 9.4 mg/dL (8.5-10.1); Chloride 103 mmol/L (98-107); Glucose 109 mg/dL (74-106); Magnesium 1.6 mg/dL (1.8-2.4); Potassium 3.8 mmol/L (3.5-5.1); Sodium 138 mmol/L (136-145)
[2021-03-18] MEDS: Pantoprazole 40 MG TABCR PO (07:55)
[2021-03-18] MEDS: Zinc Sulfate 220 MG TAB PO (07:56)
[2021-03-18] MEDS: Midodrine 2.5 MG TAB PO ×2 (07:56→19:09)
[2021-03-18] MEDS: Lactobacillus Acidophilus CAP 1 CAP PO ×3 (07:56→19:10)
[2021-03-18] MEDS: Multivitamin w/Minerals TAB 1 TAB PO (07:56)
[2021-03-18] MEDS: DULoxetine 30 MG CAP PO (07:56)
[2021-03-18] MEDS: Baclofen 10 MG TAB 5 MG PO ×4 (07:57→19:10)
[2021-03-18] MEDS: busPIRone 5 MG TAB 10 MG PO ×3 (07:57→19:11)
[2021-03-18] MEDS: Protein Nutritional Supplement 16 GM 1 OUNCE PACKET PO ×3 (07:58→19:12)
[2021-03-18] MEDS: Ascorbic Acid 500 MG TAB PO ×2 (07:58→19:11)
[2021-03-18] MEDS: Psyllium PKT 1 EACH PO (07:58)
[2021-03-18 08:10] LABS: Procalcitonin < 0.1 ng/mL
[2021-03-18] MEDS: Simethicone 80 MG CHEW 40 MG PO ×3 (08:49→17:48)
[2021-03-18] MEDS: Carbamide Peroxide 15 ML BTL AU ×2 (08:52→19:11)
[2021-03-18] MEDS: MAGNESIUM SULFATE 4 GM/100 ML BAG IVPB (08:52)
--- NOTE | 2021-03-18 09:51 | OT.INIE ---
Occupational Therapy Notes Inpatient Occupational Therapy Evaluation Date: 03/18/21 Referring Doctor: Eliane Tolliver NP OT Orders: Non-Urgent Precautions: Full, Fall, Standard PATIENT PROFILE/ADMITTING DIAGNOSIS: Pt is a 55 year old male who presented to the ED from SNF for the following dx of major depressive disorder, quaridplegia, UTI, decubitus skin ulcers, constipation, and neurogenic bladder. He is re-evaluated at todays session under acute level of care due to a recent dx of acute osteomyelitis of the sacrum. Past Medical History: Medical History (Updated 02/20/21 @ 22:10 by Lauri Larry MD) Acute embolism and thrombosis of deep vein of right lower extremity Anxiety disorder C. difficile colitis Dislocation of C6/C7 cervical vertebrae Fall down embankment Fusion of spine Hypotension Major depressive disorder Neurogenic bladder Quadriplegia Social History/Home Situation: Pt currently residing at SNF where his DME needs are met. He is functionally requiring what he reports as Max (A) for everything. He can perform his eating routines although notes that its a mess for him and he gets everything all over him. He would like to have better function of his (B) UE. His hands are currently in a contracted position which is bothersome to him. Equipment owned/DME: DME needs met by SNF SUBJECTIVE:? Pt was lying in bed when OT arrived, he is agreeable to OT session and states that he is discouraged because he found out he has acute osteomyelitis of the sacrum now. OBJECTIVE: General Observation: Pleasant and appropriate, IV (R) UE connected, pereyra in place, ulcers present in lower back, feet propped in bed for comfort and pain, pain in shoulders Mental Status: A&Ox3 Pain: pain in digits in the extended position specifically IF/thumbs ROM: RUE shoulder flexion minimal, elbow WFL, wrist extension is fair, digits in contracted position L UE shoulder flexion minimal, elbow WFL, wrist extension is fair, digits in contracted position STRENGTH: RUE Director Recreation strength is weak LUE Director Recreation strength is weak SENSATION: decreased sensation in (B) Manual Therapy [id number]: OT performed IASTM with doen regulation and PROM to pts digits into flexion and extension which pt was able to tolerate with decreased tone and minimal pain. OT perform AP mobs to pts digits to facilitate an increased functional use of his (B) hands to be more (I) in his ADL/IADL Routines. His (L) DIP joints are stiff, he has tightness in his palm. He tolerated mobilization well, however he had pain at end ranges. FUNCTIONAL MOBILITY/ADLS: BATHING Pt has functional ROM to wash his face, not enough strength to perform this without (A) and requires max (A) DRESSING Max (A) GROOMING Pt is able to bring hand to mouth for brushing his teeth but he requires (A) his lack of (B) UE strength limits his success in performance. TOILETING Max (A) EATING OT continues to recommend adaptive equipment, pt is able to grasp utensils and bring hand to mouth. Plate has to be at bed level. BALANCE: Static sitting Good Dynamic Sitting Good SPECIAL TESTS: Daily Activity Limitations Standardized Measure [facility] ? AM -PAC ? ?6 clicks? Daily Activity Inpatient Short Form: Raw score: 7? Standardized score: 20.13 ? CMS score: 92.44% ? ? INFORMED CONSENT/EDUCATION: Pt instructed in purpose of OT Consult and plan of care. ASSESSMENT: ? Patient is a 55-year-old male referred to occupational therapy services with diagnosis of major depressive disorder, quaridplegia, UTI, decubitus skin ulcer, constipation, neurogenic bladder. Patient presents with clinical signs and symptoms consistent with dx, as demonstrated by the following impairment level findings/functional limitations: Pt requires max (A) for most ADL/IADL routines, he has contracted position of his digits and decreased functional activity tolerance due to fatigue. Decreased sensation in (B) UE and inability to perform his functional mobility (I) without (A). He was discharged from [facility] level of care and is currently being seen again under acute level of care at this time due to osteomylitis in his wounds/bones of the sacrum. AMPAC score 7 Patient is assessed as a Moderate 98184? complexity based on the following: History: see above Examination: see functional limitations as noted above Presentation: evolving Decision Making: AMPAC score 7, CMS 92.44% GOALS Goals x1 week 1.? Grooming- pt will be mod (I) with brushing his teeth with mod vc throughout 2.? Dressing- Pt will be mod (A) with don and doffing shirt 3.? Bathing- pt will be able to (I) wash his face and (B) UE PLAN OF CARE/TREATMENT PLAN: 1x/day, 5 days/ week x 1week Initiate Occupational Therapy Services for bathing, dressing, grooming, toileting, eating, transfer training. DISCHARGE RECOMMENDATIONS Return to SNF vs. Home with 24 hour care givers. TREATMENT TIME/MINUTES/CODES 40278, [id number], 25 minutes (09:25) Michelle Pearce OTR/L [facility] [place]
[2021-03-18] MEDS: diazePAM 5 MG TAB PO (10:29)
[2021-03-18] MEDS: Gadoterate meglumine 20 ML VIAL 18 ML IVP (12:12)
--- NOTE | 2021-03-18 12:22 | DI.US_ITS ---
APPROVED REPORT EXAM: Comprehensive 2D, Doppler, and color-flow Echocardiogram Patient Location: In-Patient Room/Bed: [address] [employer] Helper: Inna Richardson RDCS (AE) Indications: r/o endocarditis Other Information Study Quality: Technically Limited. Technically limited study due to inability to position patient, b duc habitus. Conclusion Left Ventricle : The left ventricle is normal size. The overall left ventricular systolic function ap pears normal. There is normal left ventricular wall thickness. Regional wall motion is not well visua lized but grossly normal. The left ventricular diastolic function is normal. Right Ventricle : Right ventricle is not well visualized. Right ventricular systolic function could n ot be assessed. Atria : The left atrium size is normal. The right atrium size is normal. Valves: There are no hemodynamically significant valvular lesions. There is no clear evidence of endo carditis in this technically limited study. Great Vessels : The aortic root is normal in size. The ascending aorta is mildly dilated. IVC is norm al in size and collapses >50% with inspiration. Please see remainder of findings for further details. Wall motion Left Ventricle The left ventricle is normal size. The overall left ventricular systolic function appears normal. The re is normal left ventricular wall thickness. Regional wall motion is not well visualized but grossly normal. The left ventricular diastolic function is normal. There is no ventricular septal defect vis ualized. Right Ventricle Right ventricle is not well visualized. Right ventricular systolic function could not be assessed. Atria The left atrium size is normal. The right atrium size is normal. The interatrial septum is intact wit h no evidence for an atrial septal defect. Aortic Valve The aortic valve is not well visualized. Aortic valve is probably trileaflet. There is no aortic valv ular stenosis. No aortic regurgitation is present. Mitral Valve The mitral valve is normal in structure. No evidence of mitral valve stenosis. Trace mitral regurgita tion. Tricuspid Valve The tricuspid valve is normal in structure. There is no tricuspid valve stenosis. Trace tricuspid reg urgitation. Unable to assess PA pressure. Pulmonic Valve The pulmonary valve is normal in structure. There is no pulmonic valvular stenosis. There is no pulmo param valvular regurgitation. Great Vessels The aortic root is normal in size. The ascending aorta is mildly dilated. IVC is normal in size and c ollapses >50% with inspiration. Pericardium There is no pericardial effusion. 2D Dimensions IVSD d PLAX 1.00 cm M: 0.6-1.2 LV Vol A4C d MOD 97.9 mL LVPW d PLAX 1.02 cm M: 0.6 - 1.2 LV EF A4C MOD 51.2 % LVID d PLAX 4.78 cm M: 4.2 - 5.8 LVDs 3.40 cm M: 2.5 - 4.0 Ao Root d 3.30 cm M: 3.1 - 3.7 Ao Asc Diam d 3.59 cm M: 2.6 - 3.4 LV EF Teichholz 53.8 % FS 27.75 % M-Mode TAPSE 2.41 cm (M/F) >1.7 LV Diastology MV E' medial 0.092 (>0.07 m/s) E/A Ratio 0.8 LV E/e MED 7.10 (<14) MV E Vmax 0.66 (0.4-1.3 m/s) MV E' lateral 0.151 (>0.1 m/s) MV A Vmax 0.80 (0.4-1.3 m/s) LV E/e LAT 4.35 (<14) MV E/A Ratio 0.80 MV E/E' medial 7.13 MV E/E' lateral 4.35 Aortic Valve LVOT Area 2.89 cm2 AoV Area Vmax 3.36 cm2 LVOT Vmax 1.39 m/s YADY Mean Db. 3.64 cm2 LVOT Mean Db. 1.09 m/s LVOT Peak Grad 7.7 mmHg LVOT Mean Grad 5.0 mmHg LVOT VTI 0.226 m LVOT Diam s 1.90 cm AoV Vmax 1.19 m/s Velocity Ratio 1.16 AoV Mean Db. 0.87 m/s AoV Peak Grad 5.7 mmHg LVOT SV 65.29 mL AoV Mean Grad 3.5 mmHg AoV VTI 0.219 m AoV Area VTI 2.98 cm2 Mitral Valve MV DT 266 (160-240 msec) MV PHT 77 msec MV Area PHT 2.86 cm2 Pulmonary Valve PV Vmax 1.21 (0.5-1.5 m/s) RVOT Peak Gr. 4.50 mmHg PV Peak Grad 5.9 mmHg RVOT Mean Gr. 3.00 mmHg PV Mean Grad 3.5 mmHg RVOT VTI 0.170 m PV VTI 0.226 m RVOT Vmax 1.06 m/s
--- NOTE | 2021-03-18 13:28 | CMPROGNOTE_ITS ---
- If Service Date Differs Date of service: 03/18/21 Time of Service: 13:28 Care Management Progress Note S/O: Favio was lying in bed waiting to go to MRI when CM came to see him. He was transitioned back to inpatient status yesterday when it was learned that he now has probable sacral osteomyelitis. Favio has become more depressed over the past week. Efforts to find him placement in a rehab facility have been unsuccessful and his decubitus ulcers are not healing, despite debridement, wound vacs, antibiotics and a specialty bed. When he was told about the osteo yesterday he became very tearful and expressed concerns about what his future held. [facility] sent a referral to [facility] in [place] today. This is a [facility] hospital in [place] that has the ability to attend to complicated wounds. ALCIDES has also been in close contact with Nicki, Favio's close friend and the [facility] er of his children. She has been helping their daughter Luz navigate the [employer] Medicaid and Social Security Disability processes for Favio and has been Favio's strong advocate. A: Favio is a 55 year old man admitted to [facility] on 02/22/21 with obstipation P: Favio will likely continue to seek placement at a different facility with the help of his family. He will follow up with their provider's plan of care. Favio will transport via ambulance coordinated by ALC[facility]ES. [facility]CIDES will continue to support Favio and his family and assess for ongoing discharge concerns.
--- NOTE | 2021-03-18 13:40 | PGE_ITS ---
Date of Service Date of service: 03/18/21 Time of Service: 13:41 Assessment and Plan Assessment and plan (1) Acute osteomyelitis of sacrum: Start date: 03/18/21 Start time: 14:10 Status: Acute Assessment and plan: Patient had debridement with surgery on 03/15. Wounds are not healing despite wound vac and arjo bed, continue to worsen Left appeared to go down to the bone and does violate the periosteum.? Bone felt soft and bone biopsy was taken.? MRI revealing osteomyelitis of left ischial tuberosity. PICC line in place Spoke with ID they recommend 2 weeks vanco, stating that this will be a continuos trend of osteo. he will need to be treated every couple of weeks likely for 2 weeks until wound heals. Recommend flap but patient is not a candidate for a flap. He also states hyperbaric chamber would be a great recommendation. We will continue to refer to inpatient facilities with wound clinic for this treatment Biopsy revealed gram positive growing. he also has staph epi greater than 100,000 colonies growing in urine. CRP is 13. 41 Will have palliative meet with patient as well. Ostomy tentatively to be done on Thursday with Dr. Gaspar. See subjective for rest. (2) Decubitus ulcer of buttock, stage 4: Start date: 03/18/21 Start time: 14:16 Status: Acute Assessment and plan: Weekly photos to manage progress, stage 4 Wound care following, arjo bed for off loading ?Surgery following Initiated on vanco Wound vac in place as above Qualifiers: Laterality: left Qualified Code(s): L89.324 - Pressure ulcer of left buttock, stage 4 (3) UTI (urinary tract infection): Start date: 03/18/21 Start time: 14:17 Status: Acute Assessment and plan: Positive urine culture growing staph epi greater than 100,000 colonies sensitive to vanco due to osteo and UTI as above Qualifiers: Urinary tract infection type: catheter-associated UTI Indwelling urinary catheter type: indwelling urethral catheter Encounter type: initial encounter Qualified Code(s): T83.511A - Infection and inflammatory reaction due to indwelling urethral catheter, initial encounter; N39.0 - Urinary tract infection, site not specified (4) H/O deep venous thrombosis: Start date: 03/18/21 Start time: 14:17 Status: Chronic Assessment and plan: On eliquis, however at this time it is on hold d/t bleeding from surgical debridement. will hold until after surgery (5) Quadriplegia: Start date: 03/18/21 Start time: 14:17 Status: Chronic Assessment and plan: ?loss of sensation from chest down. Voluntary arm movement but unable to move hands and feed himself (6) Neurogenic bladder: Start date: 03/18/21 Start time: 14:17 Status: Chronic Assessment and plan: Suprapubic catheter exchanged on 03/14 by urology Urology consulted. (7) Discharge planning issues: Start date: 03/18/21 Start time: 14:18 Status: Acute Assessment and plan: Patient has been denied by many facility due to acuity of care CM [facility] [place]. He would benefit from a place as such, with a wound clinic. (8) DVT prophylaxis: Start date: 03/18/21 Start time: 14:18 Status: Chronic Assessment and plan: as above discussed with Dr. morel Subjective Subjective Patient reports: no new complaints Interval history since last seen: Patient laying in bed, echo being done. Spoke with Dr. Hoff from infectious disease regarding osteo and gram positive species. Per ID he states 2 weeks vanco is sufficient. He will continue to clear up and then have osteo requiring treatment until the tissue heals or a flap can be done. However in this patient's case a flap is not achievable. He has not improved wound shin. He continues to worsen, Dr. Gaspar is tentavily going to preform ostomy on patient on Thursday to help with wound healing. He will requi re transfer to ICU post op for at least 24 hours. PICC line placed continue vanco for 2 weeks. Echo with no clear evidence of endocarditis. He denies CP, SOB, N/V/D Exam Narrative Exam Narrative: General: cooperative, no acute distress and ill appearing chronically, pleasant lying in bed Nutritional Appearance: obese centrally obese Orientation: alert, awake and oriented x3 Visual Aguirre: normal visual aguirre by confrontation Pupils: PERRLA EOM: EOM intact bilaterally Chest: normal inspection of the chest Effort & Inspection: normal respiratory effort Auscultation: clear to auscultation bilaterally Inspection: normal to inspection Auscultation: normal bowel sounds Thoracic/Lumbar Spine: thoraco-lumbar ROM limited Sacrum: other (decubitus ulcers unable to examine wound vac in place) Wounds: wounds noted (unable to visualize wound vac in place) General: patient alert, patient awake and patient oriented x3 Cognition: normal cognition Speech: speech normal no motor function from chest down though voluntary movements with bilateral arms unable to move hands Psych Appearance: other Mental Status: other Speech and Movement: other Mood: other Affect: saddened sullen, hopeless Objective Last Vital Signs Temp 37.3 C 03/18/21 07:35 Pulse 85 03/18/21 07:35 Resp 18 03/18/21 07:35 BP 110/69 03/18/21 07:35 Pulse Ox 97 03/18/21 07:35 Laboratory Results - last 24 hr 03/18/21 03/18/21 03/18/21 06:45 06:45 06:45 WBC 9.03 RBC 3.46 L Hgb 9.3 L Hct 29.5 L MCV 85.3 MCH 26.9 L MCHC 31.5 L RDW 14.0 Plt Count 267 MPV 10.2 Immature Gran % 0.3 Neutrophils % 68.4 Lymphocytes % 18.2 Monocytes % 8.9 Eosinophils % 3.9 Basophils % 0.3 Nucleated RBC % 0 Absolute Neutrophils 6.18 Absolute Lymphocytes 1.64 Absolute Monocytes 0.80 Absolute Eosinophils 0.35 Absolute Basophils 0.03 Sodium 138 Potassium 3.8 Chloride 103 Carbon Dioxide 25.9 Anion Gap 9.1 BUN 24 H Creatinine 0.7 Estimated GFR/1.73 m2 >= 60.00 Glucose 109 H Calcium 9.4 Magnesium 1.6 L Procalcitonin < 0.1
[2021-03-18] MEDS: Normal Saline 500 ML 30 ML IV (14:39)
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
[2021-03-18] MEDS: Mirtazapine 15 MG TAB 30 MG PO (21:22)
[2021-03-18] MEDS: Zolpidem 10 MG TAB PO (21:22)
[2021-03-18] MEDS: Melatonin 3 MG TAB 6 MG PO (21:22)
[2021-03-18] MEDS: Acetaminophen 325 MG TAB 650 MG PO (23:19)
[2021-03-19 01:10] LABS: Bilirubin Negative (Negative); Blood Moderate (Negative); Clarity Sl Cloudy (Clear); Glucose Negative (Negative); Ketones Negative (Negative); Leukocyte Esterase Small (Negative); Nitrite Negative (Negative); Specific Gravity 1.015 (1.005-1.025); Urobilinogen 0.2 EU/dL (Up TO 0.2); pH 5.5 (5-8)
[2021-03-19 01:32] LABS: Bacteria Few HPF (Negative); Epithelial Cells Negative HPF (Negative); RBC >50 HPF (0-2)
[2021-03-19 01:33] LABS: C & S Indicated? Yes; Casts Negative LPF (Negative); Crystals Mod Calcium Oxalate HPF (Negative); Mucus Negative (Negative)
[2021-03-19] MEDS: cefTRIAXone 1 GM/50 ML BAG IVPB (01:36)
[2021-03-19] MEDS: Normal Saline 500 ML 30 ML IV (01:36)
[2021-03-19] MEDS: Normal Saline Flush 10 ML SYR IVP (01:37)
[2021-03-19 01:39] VITALS: TEMP 37.6
[2021-03-19 05:16] LABS: Abs Immature Grans 0.03 10^3/uL (0.0-0.06); Absolute Basophil Count 0.03 10^3/uL (0.0-0.2); Absolute Eosinophil Count 0.45 10^3/uL (0.0-0.7); Absolute Lymphocyte Count 1.79 10^3/uL (1.2-3.4); Absolute Monocyte Count 0.75 10^3/uL (0.1-0.8); Absolute Neutrophil Count 5.83 10^3/uL (1.2-6.7); Basophils % 0.3; Eosinophils % 5.1; HCT 28.8 % (40.0-50.0); HGB 8.9 g/dL (13.5-17.5); Immature Grans % 0.3; Lymphocytes % 20.2; MCH 26.6 pg (27.0-33.0); MCHC 30.9 % (32.0-36.0); MPV 9.9 fL (8.0-11.0); Monocytes % 8.4; Neutrophils % 65.7; Nucleated RBC 0 %; Platelet Count 257 10^3/uL (130-400); RBC 3.35 10^6/uL (4.36-5.78); RDW 14.2 % (11.8-14.1); RDW-SD 44.1 fL; WBC 8.88 10^3/uL (4.4-10.8)
[2021-03-19 05:24] LABS: Anion Gap 10.5 mmol/L (3-11); BUN 25 mg/dL (7-18); CO2 26.5 mmol/L (21.0-32.0); CREATININE 0.8 mg/dL (0.70-1.30); Chloride 103 mmol/L (98-107); Glucose 109 mg/dL (74-106); Magnesium 1.9 mg/dL (1.8-2.4); Sodium 140 mmol/L (136-145)
[2021-03-19 05:34] LABS: Vancomycin, Trough 22.3 ug/mL (10.0-20.0)
[2021-03-19 06:01] LABS: Diff Comment RBC Morph Reviewed
[2021-03-19 06:02] LABS: Microcytosis 1+; Polychromasia Present
[2021-03-19 06:20] VITALS: TEMP 37.3
[2021-03-19 07:29] VITALS: BP 139/78; PULSE 89; RESP 17; TEMP 37.2; O2SAT 97
--- NOTE | 2021-03-19 08:03 | OTTR_ITS ---
Date of service: 03/19/21 Time of Service: 07:15 Occupational Therapy Notes Occupational Therapy Inpatient Treatment Note Date: 03/19/21 PRECAUTIONS: Fall, standard, Full SUBJECTIVE: Pt was sitting in bed when OT arrived. He states that he has a fever this morning and is tired. He is notably sweating and uncomfortable. OBJECTIVE: ? PAIN:no c/o pain Manual Therapy [id number]: OT performed joint blocking techniques and manual mobilization to pts (B) UE at MP, IP and DIP as well as PROM to pts (B) thumbs into flexion.? He is tolerating this well and with use of tool OT performed IASTM with down regulation on dorsal aspect of digits with soreness in his (L) thumb which could be nerve related. OT passively mobilized pts (B) wrists into flexion and extension which he had some pain at end ranges. Pt has increased tone in his (B) biceps (L)>(R) and is sore when OT attempts to mobilize his (B) UE. OT will continue to monitor this. His hands are able to be placed in the extended position at rest with decreased pain this morning which is a gain in his functional ROM at this time. ? ASSESSMENT/PLAN: Plan is to continue to progress pts functional (I) as he feels is appropriate. He is uncomfortable and states that the week has been a whirlwind at this time. He is trying to use his hands more. OT reported to [facility] this morning that pt has a sore at the base of his (L) SF. This is not open or draining but is breaking down his skin at this time. OT asks [facility] to monitor this and she was going to report it to RN. ? TREATMENT CODES/TIME: 42000y5, 30 minutes (07:15) Michelle Pearce, OTR/L [facility]
[2021-03-19] MEDS: Carbamide Peroxide 15 ML BTL AU ×2 (08:43→20:06)
[2021-03-19] MEDS: busPIRone 5 MG TAB 10 MG PO ×3 (08:44→20:07)
[2021-03-19] MEDS: Midodrine 2.5 MG TAB PO ×2 (08:44→20:06)
[2021-03-19] MEDS: Baclofen 10 MG TAB 5 MG PO ×4 (08:44→20:06)
[2021-03-19] MEDS: Multivitamin w/Minerals TAB 1 TAB PO (08:44)
[2021-03-19] MEDS: Pantoprazole 40 MG TABCR PO (08:44)
[2021-03-19] MEDS: Ascorbic Acid 500 MG TAB PO ×2 (08:45→20:07)
[2021-03-19] MEDS: Simethicone 80 MG CHEW 40 MG PO ×3 (08:45→18:18)
[2021-03-19] MEDS: Psyllium PKT 1 EACH PO (08:46)
[2021-03-19] MEDS: Lactobacillus Acidophilus CAP 1 CAP PO ×3 (08:46→20:07)
[2021-03-19] MEDS: Zinc Sulfate 220 MG TAB PO (08:46)
[2021-03-19] MEDS: Protein Nutritional Supplement 16 GM 1 OUNCE PACKET PO ×3 (08:46→20:06)
[2021-03-19] MEDS: DULoxetine 30 MG CAP PO (08:46)
--- NOTE | 2021-03-19 09:54 | W.PM.PROGNOT ---
Date of Service Date of service: 03/19/21 Time of Service: 09:54 Assessment and Plan Assessment and plan (1) Acute osteomyelitis of sacrum: Status: Acute Assessment and plan: Patient had debridement with surgery on 03/15. Wounds are not healing despite wound vac and specialized bed. plan for OR tomorrow for colostomy. ? MRI revealing osteomyelitis of left ischial tuberosity. PICC line in place was discussed with ID and per report they recommend 2 weeks vanco, stating that this will be a continuos trend of osteo. he will need to be treated every couple of weeks likely for 2 weeks until wound heals. Recommend flap but patient is not a candidate for a flap. He also states hyperbaric chamber would be a great recommendation. We will continue to refer to inpatient facilities with wound clinic for this treatment surgical wound biopsy growing Proteus mirabilils he also has staph epi greater than 100,000 colonies growing in urine, sensitive to ceftriaxone. CRP 13. 41 palliative consulted Maximize protein to encourage wound healing. Vitamin C and zinc supplementation for wound healing Reposition every 2 hours Continue PT and OT Colostomy to be tomorrow with Dr. Gaspar. (2) Quadriplegia: Status: Chronic Assessment and plan: ?loss of sensation from chest down. Voluntary arm movement but unable to move hands and feed himself discussed with DR Persaud Subjective Subjective Patient reports: tolerating liquids well, tolerating a regular diet and fever Interval history since last seen: max temp overnight 39.1, no further temps today. working with physical therapy, no new c/o. wound vacs functioning. discussion about level of care postoperatively and patient is not opposed to appropriate ICU level care as warranted post operatively. Exam Narrative Exam Narrative: General: cooperative, no acute distress and ill appearing chronically, pleasant lying in bed Nutritional Appearance: obese centrally obese Orientation: alert, awake and oriented x3 EOM: EOM intact bilaterally Chest: normal inspection of the chest Effort & Inspection: normal respiratory effort Auscultation: clear to auscultation bilaterally Inspection: normal to inspection Auscultation: normal bowel sounds Sacrum: other (decubitus ulcers unable to examine wound vac in place) Wounds: wounds noted (unable to visualize wound vac in place) General: patient alert, patient awake and patient oriented x3 Cognition: normal cognition Speech: speech normal no motor function from chest down though voluntary movements with bilateral arms unable to move hands psyche: flat affect, depressed mood Objective Last Vital Signs Temp 37.2 C 03/19/21 07:29 Pulse 89 03/19/21 07:29 Resp 17 03/19/21 07:29 BP 139/78 03/19/21 07:29 Pulse Ox 97 03/19/21 07:29 Laboratory Results - last 24 hr 03/19/21 03/19/21 03/19/21 00:15 05:08 05:08 WBC 8.88 RBC 3.35 L Hgb 8.9 L Hct 28.8 L MCV 86.0 MCH 26.6 L MCHC 30.9 L RDW 14.2 H Plt Count 257 MPV 9.9 Immature Gran % 0.3 Neutrophils % 65.7 Lymphocytes % 20.2 Monocytes % 8.4 Eosinophils % 5.1 Basophils % 0.3 Nucleated RBC % 0 Absolute Neutrophils 5.83 Absolute Lymphocytes 1.79 Absolute Monocytes 0.75 Absolute Eosinophils 0.45 Absolute Basophils 0.03 RBC Morphology See below Polychromasia Present Microcytosis 1+ Sodium 140 Potassium 4.0 Chloride 103 Carbon Dioxide 26.5 Anion Gap 10.5 BUN 25 H Creatinine 0.8 Estimated GFR/1.73 m2 >= 60.00 Glucose 109 H Calcium 9.0 Magnesium 1.9 Urine Color Yellow Urine Clarity Sl cloudy Urine pH 5.5 Ur Specific [place] 1.015 Urine Protein Trace H Urine Ketones Negative Urine Blood Moderate H Urine Nitrite Negative Urine Bilirubin Negative Urine Urobilinogen 0.2 Ur Leukocyte Esterase Small H Urine RBC >50 H Urine WBC 5-10 Ur Epithelial Cells Negative Urine Crystals Mod calcium oxalate Urine Bacteria Few Urine Casts Negative Urine Mucus Negative Ur Culture Indicated? Yes Urine Glucose Negative Vancomycin Trough 03/19/21 05:08 WBC RBC Hgb Hct MCV MCH MCHC RDW Plt Count MPV Immature Gran % Neutrophils % Lymphocytes % Monocytes % Eosinophils % Basophils % Nucleated RBC % Absolute Neutrophils Absolute Lymphocytes Absolute Monocytes Absolute Eosinophils Absolute Basophils RBC Morphology Polychromasia Microcytosis Sodium Potassium Chloride Carbon Dioxide Anion Gap BUN Creatinine Estimated GFR/1.73 m2 Glucose Calcium Magnesium Urine Color Urine Clarity Urine pH Ur Specific [place] Urine Protein Urine Ketones Urine Blood Urine Nitrite Urine Bilirubin Urine Urobilinogen Ur Leukocyte Esterase Urine RBC Urine WBC Ur Epithelial Cells Urine Crystals Urine Bacteria Urine Casts Urine Mucus Ur Culture Indicated? Urine Glucose Vancomycin Trough 22.3 H*
--- NOTE | 2021-03-19 10:17 | CMPROGNOTE_ITS ---
- If Service Date Differs Date of service: 03/19/21 Time of Service: 10:17 Care Management Progress Note S/O: Favio was having a wound vac change today that was happening over a long period of time. Per RN, it was not a good time to visit. No change to current plan at this time. CM will continue to follow. A: Favio is a 55 year old man admitted to [facility] on 02/22/21 with obstipation P: Favio will likely continue to seek placement at a different facility with the help of his family. He will follow up with their provider's plan of care. Favio will transport via ambulance coordinated by CM. CM will continue to support Favio and his family and assess for ongoing discharge concerns.
[2021-03-19] MEDS: Normal Saline Flush 10 ML SYR 20 ML IVP ×2 (10:45→20:07)
[2021-03-19] MEDS: VANCOMYCIN/WATER (PEG) 1.25 GM/250 ML BAG IVPB ×2 (10:45→18:18)
--- NOTE | 2021-03-19 10:58 | PT.INTREAT ---
Date of service: 03/19/21 Time of Service: 10:58 PT Notes Visit Reasons: Osteo of left buttocks, UTI, Quadrapelgic Inpatient Physical Therapy Treatment Note Date: 03/19/2021 Precautions: High risk for skin breakdown. Plegic in B LE, paretic in B UE. Wound vacuum to sacral decubiti. Subjective: States that he is getting a poop bag tomorrow, feels bad about it but understands very well the rationale for its placement. Still sad about and continues to process the new diagnosis of bone infection. at wound site. Brightens up though with talks of singers and hard rock bands. Indicates that he is being placed in a different facility that offers hyperbaric oxygen for wound healing. Complained of L knee shoulder pain with exercises done today. Pain however resolved with rest. Objective: General Observation: Supine in bed. Catheter in place. Wound vacuum to sacral/gluteal decubiti. Mental Status: A&Ox4. Pain: Persistent stiffness on L shoulder that continues to limit exercise participation THERA ACT: Continued with activities to increase B UE strengthening doing tray table bowling with use of cones for pins and of blue weighted balls as bowling ball with 2 lb AW wrapped around R wrist, no weight on the L wrist. Continued to facilitate sitting alignment awareness with bed set to sitting feature during thera ex activity. Please refer to exercise sheet for detailed exercise activity given to patient today. Positioning strategies continue to be done to minimize PF contracture and new skin breakdown. Sheet roll placed on sides of knees to block excessive hip ER for positioning. Assessment:? New diagnosis of osteomyelitis at site of gluteal decubiti being managed by IV antibiotics. Patient also to have an ostomy procedure tomorrow and is mildly anxious about it. Incomplete C6-C7 quadriplegia. Paretic in B UE, complete paralysis in B LE. Intact as to pain and light touch up to T6 dermatomal level. Functional grasp limited to tenodesis effect at this time. B finger flexion contacture being managed well by OT. PT plan of care focus on preventing contracture formation, improving B UE myotomal strength in anticipation of independent motorized wheelchair operation using B UE or neck activation as appropriate. DISCHARGE RECOMMENDATIONS: Return to SNF with wheelchair positioning/management and contracture prevention program. TREATMENT CODE/TIME: [id number] x 47 minutes beginning at 10:58 AM.
--- NOTE | 2021-03-19 12:15 | PHA.REVIEW ---
Pharmacy Admission Review - Admission Clinical Review (Last Reviewed 03/17/21 @ 16:20 by Eliane Tolliver NP) Palliative care patient (Acute) Physician orders for life-sustaining treatment (POLST) form indicates patient wish for [id number] status (Acute) DNR (do not resuscitate) (Acute) Acute osteomyelitis of sacrum (Acute) Decubitus ulcer of buttock, stage 4 (Acute) UTI (urinary tract infection) (Acute) Discharge planning issues (Acute) No Known Allergies Allergy (Unverified 11/26/18 03:46) Height 6 ft 2 in Weight 95 kg - Renal Dosing Renal Dosing: BUN 25 mg/dL (7-18) H 03/19/21 05:08 Creatinine 0.8 mg/dL (0.70-1.30) 03/19/21 05:08 Medications needing adjustments: Reviewed List of meds needing interventions: eCrCl 124 ml/min - Anticoagulation Anticoagulation: Hgb 8.9 g/dL (13.5-17.5) L 03/19/21 05:08 Hct 28.8 % (40.0-50.0) L 03/19/21 05:08 Plt Count 257 10^3/uL (130-400) 03/19/21 05:08 Creatinine 0.8 mg/dL (0.70-1.30) 03/19/21 05:08 DVT Prohphylaxis: N/A Therapeutic Anticoagulation: N/A (Usually therapeutically anticoagulated with eliquis but it is on hold due to recent debridement) - Opiate Usage Evaluate Pain Scale/Pains Meds: Reviewed Scheduled Bowel Reg ordered if on Opiates?: No (goal is to reduce BMs) - Relevant Labs Sodium 140 mmol/L (136-145) 03/19/21 05:08 Potassium 4.0 mmol/L (3.5-5.1) 03/19/21 05:08 Chloride 103 mmol/L (98-107) 03/19/21 05:08 Magnesium 1.9 mg/dL (1.8-2.4) 03/19/21 05:08 Electrolytes, C-Reactive P, ESR: Reviewed - DM Control DM Control: Glucose 109 mg/dL (74-106) H 03/19/21 05:08 Insulin Dosing: N/A - Heart Failure/CO EF%, JAYLON's, B-Blockers, Diuretics: Reviewed - BP Control BP Control: Blood Pressure 139/78 If elevated: Reviewed - Qtc Review If Elevated: N/A - IV to PO Switch IV Medications: Reviewed (will require at elast 2 weeks of IV antibiotics) - Home Meds Home Med List reviewed: Reviewed Relevent Home Meds Not ordered & why?: apixiban -- on hold due to recent surgical debridement, mirtazepine is ordered but only at 30mg daily and home med list states 45mg, tizanidine (does have baclofen ordered) - Current meds Current Medication Order Review: Reviewed (vanco x 2 weeks at least for gram positive bone culture/urine culture)
[2021-03-19] MEDS: Acetaminophen 325 MG TAB 650 MG PO (12:43)
[2021-03-19] MEDS: HYDROmorphone 2 MG TAB PO (12:43)
--- NOTE | 2021-03-19 14:43 | WOUNDCONS_ITS ---
- If Service Date Differs Date of service: 03/19/21 Time of Service: 13:00 Wound Initial Evaluation Narrative: Pt seen at bedside, agreeable to re-assessment of wounds and verbally consents to photos again this week (signed consent in chart.) Since pt was last seen by me on 03/14/21 his wounds were surgically debrided by Dr. Gaspar. Wounds look conduit cleaner at this time, bone visible on left and palpable on right. Pt also has new osteomyleitis Dx on left ishial tuberosity (bone Bx taken during debriedment on 03/15/21) which was previously r/o on admission by MD's prior to initiating NPWT. Pt is being Tx w/ IV Vancomycin for osteomylitis and UTI. Wounds cleansed w/anasept conduit cleaner. Measured in neutral position, photos taken, redressed with wound vacs. adaptic was placed over bilateral wound bases to cover bone. Promogran Yolanda placed in wounds to aid in granulation formation and wound healing @ this time. Pt was pre-medicated with Dilaudid and tolerated dressing changes well. His mother was in the room during the vac changes. Pt continues to be followed by OT, PT, nutrition, wound care, and surgical services, as well as being managed by hospitalist services. He is on air bed to aid in pressure relief. Surgical team planning on colostomy surgery tomorrow. Date not written on photograph of Left Isihial Tuberosity in error. Photo taken on 03/19/21 - Wound Left Ishial Tuberosity Wound Type: Pressure Ulcer Pressure Ulcer Stage: IV Wound General Appearance: Draining, Bleeding, Unapproximated, Tendon Visible, Muscle Visible, Bone Visible Wound Bed Greatest Portion: Red (Granulation) Wound Bed Lesser Portion: Yellow (Slough) (white tendon, bone, fascia) Wound Surrounding Tissue Appearance: [place] Wound Length: 5.5 cm Wound Width: 5 cm Wound Depth: 3.5 cm (1 cm undermining from 9-3 o'clock) Wound Drainage Amount: Moderate (bloody in wound vac canister) Wound Drainage Description: Bloody, Purulent (cloudy bloody drainage) Right Ishial Tuberosity Wound Type: Pressure Ulcer Pressure Ulcer Stage: IV Wound General Appearance: Draining, Unapproximated, Tendon Visible, Muscle Visible, Bone Visible (palpable) Wound Bed Greatest Portion: Red (Granulation) Wound Bed Lesser Portion: Yellow (Slough) Wound Surrounding Tissue Appearance: [place] Wound Length: 4 cm Wound Width: 3.5 cm Wound Depth: 3.5 cm (1 cm undermining from 11-3 o'clock) Wound Drainage Amount: Minimal Wound Drainage Description: Bloody - Pain Pain Level: 0 Pain Scale Used: Visual Analog Scale 0-10 - Recomendation Recomendation:: Wound Vac dressing changes on , , THU- Cleanse bilateral ishial tuberosity wounds with anasept cleanser and gauze, Skin prep to periwound. Add promogran yolanda (1 package to each wound) to wound bed with wound vac dressing changes. Ensure bone on bilateral wound bases is covered with contact layer (Adaptic) prior to black foam placement during dressing changes. Treatment Time - Time Total Time Spent with Patient: 60 minutes - Patient Will be Seen Weekly Treatment: 1x/wk
--- NOTE | 2021-03-19 14:50 | CHAPLAIN ---
Favio has been here for a few weeks. He is a paraplegic, after a fall. Favio remains pleasant and friendly and also sad and discouraged. He does not want to return to [facility] His mom has been visiting and he is in touch with his daughter. He also has a son works in [employer]. Dr. Zhu saw Favio yesterday for a Palliative Consultation. He told her is DNR/DNI for code status. When I asked how his visit with Dr. Zhu went, Favio said he didn't realize it was Dr. Zhu, and that he'd had her as a chiropractor many years ago, but didn't realize she was the same person. Favio has some new family photos with him and told me who every one was.
[2021-03-19 16:05] VITALS: BP 125/79; PULSE 92; RESP 17; TEMP 37.1; O2SAT 99
--- NOTE | 2021-03-19 16:41 | W.PM.PROGNOT ---
Date of Service Date of service: 03/19/21 Time of Service: 16:42 Assessment and Plan Assessment and plan (1) Acute osteomyelitis of sacrum: Status: Acute Assessment and plan: I discussed with the patient today about doing a diverting ostomy. We discussed this for both the neurogenic bowel and to divert the fecal stream to prevent continued contamination of his wounds. This gives us the best option and chance for infection control. We discussed what a stoma would look like on, how to change the appliance, and what some of the common problems with them can be. Reviewed how to care for him. I gave him some reading materials and information on chronic colostomy care. We discussed what would happen in the OR and what could he expect postoperatively. We will plan on keeping him in the ICU overnight. He does get hypertension with general anesthesia. We also discussed the possible need for an A-line. We discussed risks and benefits of surgery including but not limited to: Bleeding, infection, pneumonia, blood clots, damage to bowel bladder or blood vessels. Complications from anesthesia including hyper or hypotension. Blood loss requiring a transfusion. Revision to the bowel. Hernias. Wound infections. And other unforetold complications. Patient is agreement. Preparations are undertaken for surgery tomorrow. Was verbalized patient cannot sign. It was witnessed by his nurse Sheyla. 60 minutes was spent in consultation with the patient today regarding colostomy creation and wound care. (2) Decubitus ulcer of buttock, stage 4: Status: Acute Assessment and plan: bilateral. Qualifiers: Laterality: left Qualified Code(s): L89.324 - Pressure ulcer of left buttock, stage 4 (3) Major depressive disorder: Status: Chronic (4) Quadriplegia: Status: Chronic (5) UTI (urinary tract infection): Status: Acute Qualifiers: Encounter type: initial encounter Indwelling urinary catheter type: indwelling urethral catheter Urinary tract infection type: catheter-associated UTI Qualified Code(s): T83.511A - Infection and inflammatory reaction due to indwelling urethral catheter, initial encounter; N39.0 - Urinary tract infection, site not specified (6) Constipation: Status: Chronic Qualifiers: Constipation type: other constipation type Qualified Code(s): K59.09 - Other constipation (7) Neurogenic bladder: Status: Chronic (8) Constipation due to neurogenic bowel: Status: Acute (9) Neurogenic bowel: Status: Acute Subjective Subjective Interval history since last seen: I did d/w the need for ostomy w/ Ron today. Two-fold: Diverting the stool to prevent any further infection and also for neurogenic bowel issues. Pt does not have a BM w/ out rectal stimulation. The bone cultures from the OR did grow corynebacteria and B. frag. ID was consulted. Currently we are using a wound VAC system. We are maximizing nutrition support therapy. He is not a smoker in the hospital. Pt is doing well. no headaches. No CP or SOB. no productive cough. no leg pain or swelling. Exam Resp Effort & Inspection: normal respiratory effort and able to speak in complete sentences Auscultation: clear to auscultation bilaterally Cardio Rate: regular rate Rhythm: regular rhythm GI Inspection: distended and no incisions Palpation: soft and no hernias Auscultation: normal bowel sounds Other: He has not had a bowel movement in 2 days. The site for the some stoma is marked in the left lower quadrant. His suprapubic tube is clean dry and intact. Extrem Other: Lower extremities are flaccid. I did not review his wounds today. He continues to have spasms Objective Last Vital Signs Temp 37.1 C 03/19/21 16:05 Pulse 92 H 03/19/21 16:05 Resp 17 03/19/21 16:05 BP 125/79 03/19/21 16:05 Pulse Ox 99 03/19/21 16:05 Laboratory Results - last 24 hr 03/19/21 03/19/21 03/19/21 00:15 05:08 05:08 WBC 8.88 RBC 3.35 L Hgb 8.9 L Hct 28.8 L MCV 86.0 MCH 26.6 L MCHC 30.9 L RDW 14.2 H Plt Count 257 MPV 9.9 Immature Gran % 0.3 Neutrophils % 65.7 Lymphocytes % 20.2 Monocytes % 8.4 Eosinophils % 5.1 Basophils % 0.3 Nucleated RBC % 0 Absolute Neutrophils 5.83 Absolute Lymphocytes 1.79 Absolute Monocytes 0.75 Absolute Eosinophils 0.45 Absolute Basophils 0.03 RBC Morphology See below Polychromasia Present Microcytosis 1+ Sodium 140 Potassium 4.0 Chloride 103 Carbon Dioxide 26.5 Anion Gap 10.5 BUN 25 H Creatinine 0.8 Estimated GFR/1.73 m2 >= 60.00 Glucose 109 H Calcium 9.0 Magnesium 1.9 Urine Color Yellow Urine Clarity Sl cloudy Urine pH 5.5 Ur Specific [place] 1.015 Urine Protein Trace H Urine Ketones Negative Urine Blood Moderate H Urine Nitrite Negative Urine Bilirubin Negative Urine Urobilinogen 0.2 Ur Leukocyte Esterase Small H Urine RBC >50 H Urine WBC 5-10 Ur Epithelial Cells Negative Urine Crystals Mod calcium oxalate Urine Bacteria Few Urine Casts Negative Urine Mucus Negative Ur Culture Indicated? Yes Urine Glucose Negative Vancomycin Trough 03/19/21 05:08 WBC RBC Hgb Hct MCV MCH MCHC RDW Plt Count MPV Immature Gran % Neutrophils % Lymphocytes % Monocytes % Eosinophils % Basophils % Nucleated RBC % Absolute Neutrophils Absolute Lymphocytes Absolute Monocytes Absolute Eosinophils Absolute Basophils RBC Morphology Polychromasia Microcytosis Sodium Potassium Chloride Carbon Dioxide Anion Gap BUN Creatinine Estimated GFR/1.73 m2 Glucose Calcium Magnesium Urine Color Urine Clarity Urine pH Ur Specific [place] Urine Protein Urine Ketones Urine Blood Urine Nitrite Urine Bilirubin Urine Urobilinogen Ur Leukocyte Esterase Urine RBC Urine WBC Ur Epithelial Cells Urine Crystals Urine Bacteria Urine Casts Urine Mucus Ur Culture Indicated? Urine Glucose Vancomycin Trough 22.3 H*
[2021-03-19] MEDS: Senna TAB 2 TAB PO (20:07)
[2021-03-19] MEDS: Docusate Sodium 100 MG CAP PO (20:07)
[2021-03-19] MEDS: Mirtazapine 15 MG TAB 30 MG PO (22:31)
[2021-03-19] MEDS: Zolpidem 10 MG TAB PO (22:31)
[2021-03-19] MEDS: Melatonin 3 MG TAB 6 MG PO (22:31)
--- NOTE | 2021-03-19 23:00 | NUR.NOTE ---
Nursing Note: 21:50: Pt received in 222 from med/surg. Report given by Beronica POSADA. Pt is alert and oriented X4. No c/o pain verbalized. Pt is having a facetime meet with his family, no apparent distress noticed.
[2021-03-20] VITALS (38 sets, daily range): BP systolic 98–165; BP diastolic 59–107; PULSE 56–97; RESP 16–24; TEMP 36–36.4; TEMPC 36; O2SAT 92–100; BMI 26.9
[2021-03-20] MEDS: cefTRIAXone 1 GM/50 ML BAG IVPB (00:31)
[2021-03-20] MEDS: VANCOMYCIN/WATER (PEG) 1.25 GM/250 ML BAG IVPB ×3 (01:57→21:25)
[2021-03-20 07:00] LABS: Abs Immature Grans 0.04 10^3/uL (0.0-0.06); Absolute Basophil Count 0.02 10^3/uL (0.0-0.2); Absolute Eosinophil Count 0.45 10^3/uL (0.0-0.7); Absolute Lymphocyte Count 1.68 10^3/uL (1.2-3.4); Absolute Monocyte Count 0.86 10^3/uL (0.1-0.8); Absolute Neutrophil Count 6.53 10^3/uL (1.2-6.7); Basophils % 0.2; Eosinophils % 4.7; HCT 27.4 % (40.0-50.0); HGB 8.6 g/dL (13.5-17.5); Immature Grans % 0.4; Lymphocytes % 17.5; MCH 26.5 pg (27.0-33.0); MCHC 31.4 % (32.0-36.0); MCV 84.3 fL (80-95); MPV 10.7 fL (8.0-11.0); Neutrophils % 68.2; Nucleated RBC 0 %; Platelet Count 259 10^3/uL (130-400); RBC 3.25 10^6/uL (4.36-5.78); RDW 14.1 % (11.8-14.1); RDW-SD 43.7 fL; WBC 9.58 10^3/uL (4.4-10.8)
[2021-03-20 07:09] LABS: Anion Gap 7.9 mmol/L (3-11); BUN 22 mg/dL (7-18); CO2 27.1 mmol/L (21.0-32.0); CREATININE 0.7 mg/dL (0.70-1.30); Calcium 9.4 mg/dL (8.5-10.1); Chloride 104 mmol/L (98-107); Glucose 105 mg/dL (74-106); Potassium 3.9 mmol/L (3.5-5.1); Sodium 139 mmol/L (136-145)
[2021-03-20] MEDS: Lactobacillus Acidophilus CAP 1 CAP PO ×2 (09:27→19:12)
[2021-03-20] MEDS: Baclofen 10 MG TAB 5 MG PO ×3 (09:27→19:11)
[2021-03-20] MEDS: DULoxetine 30 MG CAP PO (09:27)
[2021-03-20] MEDS: Midodrine 2.5 MG TAB PO ×2 (09:28→19:11)
[2021-03-20] MEDS: Pantoprazole 40 MG TABCR PO (09:28)
[2021-03-20] MEDS: busPIRone 5 MG TAB 10 MG PO ×2 (09:28→19:11)
--- NOTE | 2021-03-20 09:36 | W.PM.PROGNOT ---
Date of Service Date of service: 03/20/21 Time of Service: 09:36 Assessment and Plan Assessment and plan (1) Acute osteomyelitis of sacrum: Status: Acute Assessment and plan: Patient had debridement with surgery on 03/15. Wounds are not healing despite wound vac and specialized bed. plan for OR today for colostomy. ? MRI revealing osteomyelitis of left ischial tuberosity. PICC line in place was discussed with ID and per report they recommend 2 weeks vanco, stating that this will be a continuos trend of osteo. he will need to be treated every couple of weeks likely for 2 weeks until wound heals. Recommend flap but patient is not a candidate for a flap. He also states hyperbaric chamber would be a great recommendation. We will continue to refer to inpatient facilities with wound clinic for this treatment surgical wound biopsy growing Proteus mirabilils he also has staph epi greater than 100,000 colonies growing in urine, sensitive to ceftriaxone. CRP 13. 41 palliative consulted Maximize protein to encourage wound healing. Vitamin C and zinc supplementation for wound healing Reposition every 2 hours Continue PT and OT Colostomy to be tomorrow with Dr. Gaspar. (2) Quadriplegia: Status: Chronic Assessment and plan: ?loss of sensation from chest down. Voluntary arm movement but unable to move hands and feed himself discussed with DR Persaud Subjective Subjective Patient reports: no new complaints and afebrile Interval history since last seen: awaiting colostomy which is scheduled today. Exam Narrative Exam Narrative: General: cooperative, no acute distress and ill appearing chronically, pleasant lying in bed Nutritional Appearance: obese centrally obese Orientation: alert, awake and oriented x3 EOM: EOM intact bilaterally Chest: normal inspection of the chest Effort & Inspection: normal respiratory effort Auscultation: clear to auscultation bilaterally Inspection: normal to inspection Auscultation: normal bowel sounds Sacrum: other (decubitus ulcers unable to examine wound vac in place) Wounds: wounds noted (unable to visualize wound vac in place) General: patient alert, patient awake and patient oriented x3 Cognition: normal cognition Speech: speech normal no motor function from chest down though voluntary movements with bilateral arms unable to move hands psyche: flat affect, depressed mood Objective Last Vital Signs Temp 37.1 C 03/19/21 16:05 Pulse 97 H 03/20/21 02:00 Resp 17 03/19/21 16:05 BP 126/78 03/20/21 02:00 Pulse Ox 99 03/19/21 16:05 Laboratory Results - last 24 hr 03/20/21 03/20/21 06:15 06:15 WBC 9.58 RBC 3.25 L Hgb 8.6 L Hct 27.4 L MCV 84.3 MCH 26.5 L MCHC 31.4 L RDW 14.1 Plt Count 259 MPV 10.7 Immature Gran % 0.4 Neutrophils % 68.2 Lymphocytes % 17.5 Monocytes % 9.0 Eosinophils % 4.7 Basophils % 0.2 Nucleated RBC % 0 Absolute Neutrophils 6.53 Absolute Lymphocytes 1.68 Absolute Monocytes 0.86 H Absolute Eosinophils 0.45 Absolute Basophils 0.02 Sodium 139 Potassium 3.9 Chloride 104 Carbon Dioxide 27.1 Anion Gap 7.9 BUN 22 H Creatinine 0.7 Estimated GFR/1.73 m2 >= 60.00 Glucose 105 Calcium 9.4
--- NOTE | 2021-03-20 10:30 | CMPROGNOTE_ITS ---
- If Service Date Differs Date of service: 03/20/21 Time of Service: 10:30 Care Management Progress Note S/O: Per report, Favio will go to the OR today for a diverting ostomy. He will go to the ICU post operatively. CM attempted to visit later in the day, and he was still not back from the OR. CM talked to the RN, and offered support, if needed. CM will continue to follow. A: Favio is a 55 year old man admitted to [facility] on 02/22/21 with obstipation P: Favio will likely continue to seek placement at a different facility with the help of his family. He will follow up with their provider's plan of care. Favio will transport via ambulance coordinated by [facility]. CM will continue to support Favio and his family and assess for ongoing discharge concerns.
--- NOTE | 2021-03-20 10:49 | ANES.PREOP_ITS ---
General Info Date of Service Date Performed: 03/20/21 Height: 6 ft 2 in Weight: 95 kg Body Mass Index (BMI): 26.9 Surgical Procedure: Operation Date: 03/20/21 12:20 Proposed Procedures Side Surgeon p Colostomy Diverting Bhumi Gaspar, Meds Allergies and Home Medications Allergies Allergy/AdvReac Type Severity Reaction Status Date / Time No Known Allergies Allergy Unverified 11/26/18 03:46 Home Medication Medication Instructions Recorded Lactobacillus acidoph-L.bulgaricus 1 tab PO TID tab 01/29/21 1 million cell tablet acetaminophen 500 mg capsule 1,000 mg PO Q8H PRN PRN cap 01/29/21 albuterol sulfate 90 mcg/actuation 2 inh INHALATION Q4H PRN 01/29/21 breath activated powder inhaler apixaban 5 mg tablet 5 mg PO BID 01/29/21 bisacodyl 10 mg rectal suppository 10 mg FL DAILY PRN 01/29/21 buspirone 10 mg tablet 10 mg PO TID tab 01/29/21 diclofenac sodium 1 % topical gel 1 applic TOPICAL Q6H PRN g 01/29/21 docusate sodium 100 mg capsule 100 mg PO BID 01/29/21 magnesium hydroxide 400 mg/5 mL 30 ml PO DAILY PRN 01/29/21 oral suspension melatonin 5 mg tablet 5 mg PO HS PRN tab 01/29/21 midodrine 2.5 mg tablet 5 mg PO BID tab 01/29/21 mirtazapine 45 mg tablet 45 mg PO QHS 01/29/21 polyethylene glycol 3350 17 17 g PO DAILY 01/29/21 gram/dose oral powder sennosides 8.6 mg capsule 17.2 mg PO BID 01/29/21 tizanidine 2 mg capsule 4 mg PO Q6H PRN cap 01/29/21 baclofen 5 mg PO Q6H PRN 02/20/21 ondansetron HCl [Zofran] 4 mg PO Q8H PRN 02/20/21 sodium phosphates [Fleet Enema] 118 ml FL PRN PRN 02/20/21 zolpidem 5 mg PO HS 02/20/21 Current Visit Medications: Current Medications Generic Name Dose Route Start Last Admin Trade Name Freq PRN Reason Stop Dose Admin Acetaminophen 650 mg 03/17/21 15:39 03/19/21 12:43 Acetaminophen 325 Mg Tab PO 650 mg Q4H PRN PRN Administration Acidophilus/Pectin 1 cap 03/17/21 20:00 03/20/21 09:27 Lactobacillus Acidophilus Cap PO 1 cap TID ALDEN Administration Albuterol Sulfate 0 puff 03/17/21 15:41 Albuterol Hfa 6.7 Gm 200 Puff Inh IH Q4H PRN PRN Ascorbic Acid 500 mg 03/17/21 20:00 03/19/21 20:07 Ascorbic Acid 500 Mg Tab PO 500 mg BID ALDEN Administration Baclofen 5 mg 03/17/21 20:00 03/20/21 09:27 Baclofen 10 Mg Tab PO 5 mg QID ALDEN Administration Bisacodyl 10 mg 03/17/21 15:42 Bisacodyl 10 Mg Supp FL DAILY PRN PRN Buspirone HCl 10 mg 03/17/21 20:00 03/20/21 09:28 Buspirone 5 Mg Tab PO 10 mg TID ALDEN Administration Carbamide Peroxide 0 ml 03/17/21 20:00 03/19/21 20:06 Carbamide Peroxide 15 Ml Btl AU 10 drp BID ALDEN Administration Dimethicone/Zinc Oxide 0 gm 03/17/21 15:38 Michell Protect Cream 142 Gm Tube TP PRN PRN Docusate Sodium 100 mg 03/17/21 15:57 03/19/21 20:07 Docusate Sodium 100 Mg Cap PO 100 mg BID PRN PRN Administration prn Duloxetine HCl 30 mg 03/18/21 08:30 03/20/21 09:27 Duloxetine 30 Mg Cap PO 30 mg DAILY ALDEN Administration Hydromorphone HCl 2 mg 03/17/21 15:58 03/19/21 12:43 Hydromorphone 2 Mg Tab PO 2 mg Q3H PRN PRN Administration Sodium Chloride 500 mls @ 0 mls/hr 03/17/21 15:51 03/19/21 05:08 Saline 500ml Bag IV 0 mls/hr PRN PRN Infusion As Directed Iron Sucrose 300 mg/ Sodium 265 mls @ 176.666 mls/hr 03/20/21 12:00 Chloride IVPB 03/20/21 13:29 TODAY@1200 ONE Ceftriaxone Sodium/Dextrose 1 gm in 50 mls @ 100 mls/hr 03/19/21 00:00 03/20/21 01:57 Rocephin IVPB Infused Q24H ALDEN Infusion Vancomycin/PEG/NADA/Lysine/Water 1.25 gm in 250 mls @ 166.667 mls/hr 03/19/21 10:00 03/20/21 09:28 Vancocin Injection IVPB 250 mls/hr Q8H ALDEN Administration Ertapenem/Sodium Chloride 1 gm 50 mls @ 100 mls/hr 03/20/21 11:35 / Sodium Chloride IVPB 03/20/21 12:04 [employer]UC[employer] ONE Protocol IV Miscellaneous Supplies 1 each 03/17/21 16:15 Iv Access IV DIRECTED ALDEN Ibuprofen 600 mg 03/17/21 16:03 Ibuprofen 600 Mg Tab PO TID PRN PRN Iron/Minerals/Multivitamins 1 tab 03/18/21 08:30 03/19/21 08:44 Multivitamin W/Minerals Tab PO 1 tab DAILY ALDEN Administration Magnesium Hydroxide 30 ml 03/17/21 15:54 Milk Of Magnesia 30 Ml Cup PO DAILY PRN PRN Melatonin 6 mg 03/17/21 22:00 03/19/21 22:31 Melatonin 3 Mg Tab PO 6 mg HS ALDEN Administration Midodrine 2.5 mg 03/17/21 20:00 03/20/21 09:28 Midodrine 2.5 Mg Tab PO 2.5 mg BID ALDEN Administration Mirtazapine 30 mg 03/17/21 22:00 03/19/21 22:31 Mirtazapine 15 Mg Tab PO 30 mg HS ALDEN Administration Multi-Ingredient Supplement 1 ounce 03/17/21 20:00 03/19/21 20:06 Protein Nutritional Supplement 16 Gm 1 Ounce Packet PO 1 ounce TID ALDEN Administration Pantoprazole Sodium 40 mg 03/18/21 07:30 03/20/21 09:28 Pantoprazole 40 Mg Tabcr PO 40 mg DAILY@0730 ALDEN Administration Polyethylene Glycol 17 gm 03/17/21 15:56 Polyethylene Glycol 3350 17 Gm Packet PO BID PRN PRN prn Prucalopride 2 mg 03/18/21 08:30 03/19/21 08:44 Prucalopride 2 Mg Tab PO 2 mg DAILY ALDEN Administration Psyllium Hydrophilic Mucilloid 1 each 03/18/21 08:30 05/18/21 08:46 Psyllium Pkt PO 1 each DAILY ALDEN Administration Sennosides 2 tab 03/17/21 15:56 03/19/21 20:07 Senna Tab PO 2 tab DAILY PRN PRN Administration prn Simethicone 40 mg 03/17/21 18:00 03/19/21 18:18 Simethicone 80 Mg Chew PO 40 mg PC ALDEN Administration Sodium Biphosphate/Sodium Phosphate 133 ml 03/19/21 22:00 03/20/21 10:06 Na Phosphate Enema 133 Ml Btl FL 133 ml DIRECTED ALDEN Administration Sodium Chloride 10 ml 03/17/21 15:52 03/19/21 01:37 Normal Saline Flush 10 Ml Syr IVP 20 ml PRN PRN Administration Sodium Chloride 20 ml 03/19/21 08:00 03/19/21 20:07 Normal Saline Flush 10 Ml Syr IVP 60 ml BID ALDEN Administration Zinc Sulfate 220 mg 03/18/21 08:30 03/19/21 08:46 Zinc Sulfate 220 Mg Tab PO 220 mg DAILY ALDEN Administration Zolpidem Tartrate 10 mg 03/17/21 22:00 03/19/21 22:31 Zolpidem 10 Mg Tab PO 10 mg HS ALDEN Administration PFSH Active Problems Active Problems: Problem Status Onset Code Neurogenic bowel K59.2 Constipation due to neurogenic bowel K59.00, K59.2 Palliative care patient Z51.5 Physician orders for life-sustaining treatment (POLST) form indicates patient wish for [id number] status Z66 DNR (do not resuscitate) Z66 Acute osteomyelitis of sacrum M46.28 Decubitus ulcer of buttock, 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 difficile colitis Dislocation of C6/C7 cervical vertebrae DVT (deep venous thrombosis) Fall down embankment Fusion of spine Hypotension Major depressive disorder Neurogenic bladder Quadriplegia Tobacco Smoking/Tobacco Use Status: Never Alcohol Alcohol Intake: current Alcohol intake frequency: a few times a week Substance Use Substance use: Occasionally Substance use type: marijuana Vital Signs and Lab Results Vital Signs Most Recent Vital Signs in EMR: Most Recent Vital Signs Temp Pulse Resp BP Pulse Ox 36.3 C L 79 18 126/78 98 03/20/21 09:36 03/20/21 09:36 03/20/21 09:36 03/20/21 02:00 03/20/21 09:36 Lab Results Result Diagrams: 03/20/21 06:15 03/20/21 06:15 Blood Type / Crossmatch: No Data to Display Complete Blood Count: White Blood Count 9.58 10^3/uL (4.4-10.8) 03/20/21 06:15 03/20/21 Red Blood Count 3.25 10^6/uL (4.36-5.78) L 03/20/21 06:15 03/20/21 Hemoglobin 8.6 g/dL (13.5-17.5) L 03/20/21 06:15 03/20/21 Hematocrit 27.4 % (40.0-50.0) L 03/20/21 06:15 03/20/21 Platelet Count 259 10^3/uL (130-400) 03/20/21 06:15 03/20/21 Complete Metabolic Panel: Sodium Level 139 mmol/L (136-145) 03/20/21 06:15 03/20/21 Potassium Level 3.9 mmol/L (3.5-5.1) 03/20/21 06:15 03/20/21 Chloride Level 104 mmol/L (98-107) 03/20/21 06:15 03/20/21 Carbon Dioxide Level 27.1 mmol/L (21.0-32.0) 03/20/21 06:15 03/20/21 Blood Urea Nitrogen 22 mg/dL (7-18) H 03/20/21 06:15 03/20/21 Creatinine 0.7 mg/dL (0.70-1.30) 03/20/21 06:15 03/20/21 Magnesium Level 1.9 mg/dL (1.8-2.4) 03/19/21 05:08 03/19/21 Calcium Level 9.4 mg/dL (8.5-10.1) 03/20/21 06:15 03/20/21 Albumin 2.7 g/dL (3.4-5.0) L 03/16/21 07:20 03/16/21 Glucose Level 105 mg/dL (74-106) 03/20/21 06:15 03/20/21 C-Reactive Protein 13.41 mg/dL (0.0-0.3) H 03/16/21 07:20 03/16/21 Liver Function Panel: Alanine Aminotransferase (ALT/SGPT) 29 U/L (16-63) 03/16/21 07:20 03/16/21 Aspartate Amino Transf (AST/SGOT) 14 U/L (15-37) L 03/16/21 07:20 03/16/21 Coagulation Panel: INR International Normalized Ratio 1.0 (0.9-1.1) 03/16/21 07:20 03/16/21 Prothrombin Time 10.3 sec (9.3-11.0) 03/16/21 07:20 03/16/21 Cardiac Panel: No Data to Display Arterial Blood Gas: No Data to Display Venous Blood Gas: Venous Blood Lactate 1.3 mmol/L (0.6-1.4) 02/28/21 10:00 02/28/21 Pancreas Panel: Lipase 225 U/L (73-393) 02/20/21 17:20 02/20/21 Thyroid Panel: Thyroid Stimulating Hormone (TSH) 5.86 uIU/mL (0.36-3.74) H 03/16/21 07:20 03/16/21 Infectious Disease: Coronavirus (COVID-19)(PCR) Negative (Negative) 02/20/21 20:17 02/20/21 Coronavirus 2019 Source Nasal/nares 02/20/21 20:17 02/20/21 Blood Cultures: No Data to Display Toxicology Panel: No Data to Display Imaging and Studies Imaging and Studies EKG Summary: 02/20: sinus rhythm. Anesthesia Assessment and Plan Anesthesia History Personal History: No History of Anesthesia Complications Family History: No Family History of Anesthesia Complications Exercise Tolerance Exercise Tolerance: Metabolic Equivalents>4 Cardiac & Pulmonary Exam Cardiac Exam: Normal S1/S2 Heart Sounds Pulmonary Exam: Clear Bilateral Breath Sounds Airway Exam Known Difficult Airway: No Previous Airway Comments:: [place] [facility] [place] [facility] [place] ventilation with 100 mm OPA, cmac d blade grade 1. Mallampati Class: 1 Mouth Opening: Normal (> 3cm) Thyromental Distance: Greater than 3 cm Neck Range of Motion: Limited ROM Neck Circumference: Normal Teeth Condition: Loose or Chipped Airway Comments: multiple missing teeth. ASA Classification ASA Score: ASA 3 Emergency Case?: No NPO Status NPO Status: NPO Clears >2 hours, Solids >8 hours Anesthesia Plan Resuscitation Status: DNR/DNI Suspended During Perioperative Period Anesthesia Technique: General Anesthesia Airway Planned: Endotracheal Tube Monitors Used: Arterial Line
[2021-03-20] MEDS: Lactated Ringers 1,000 ML 75 ML IV ×2 (12:05→21:35)
[2021-03-20] MEDS: ERTAPENEM 1 GM in Normal Saline 50 ML IVPB (12:16)
--- NOTE | 2021-03-20 13:03 | W.ANESVAS ---
Arterial Line Placement Date Performed: 03/20/21 Procedure Time: 12:20 Procedure Location: Operating Room Requesting Provider: Bhumi Gaspar Positive Modified Jose Test?: Yes Timeout Performed: Yes Sedation Given (Indicate Dose Given): No Sedation given Patient Mental Status: Performed under general anesthesia Sterility: Hand Hygiene, Surgical Cap, Surgical Mask, Sterile Gloves and Chlorhexidine Laterality: Left Insertion Site: Radial Arterial Line Catheter: 20G Arrow Arterial Line Procedure: Vessel accessed with catheter over needle, Guidewire placed with ease, Catheter placed without resistance and Guidewire removed Dressing: Tegaderm Applied Ultrasound: Not Used Number of Attempts (See previous attempts in note section): 2 Procedure Tolerated: No Complications and Patient tolerated well Procedure Outcome: Successful Procedure Comment:: x2 attempt by LILIA John Performed By: Eliane La Supervised By: Delfina Lewis
--- NOTE | 2021-03-20 14:24 | W.ANESPOSTOP ---
Postoperative Evaluation Date, Time and Location Date Performed: 03/20/21 Time Performed: 14:25 Patient Location: Intensive Care Unit Vital Signs Most Recent Imported Vital Signs: Most Recent Vital Signs Temp Pulse Resp BP Pulse Ox 36.3 C L 71 18 110/69 95 03/20/21 09:36 03/20/21 14:09 03/20/21 09:36 03/20/21 14:09 03/20/21 14:09 Most Recent Manually Entered Vital Signs: Adult Blood Pressure: 158/75 Heart Rate: 75 Respirations: 18 Oxygen Saturation (%): 98 Temperature (C): 36 C Pain Score (0-10 Scale): 0 Pain Score Most Recent Pain Score: Most Recent Pain Score Pain Level 0 03/20/21 09:36 Assessment Mental Status: Awake (Alert & Oriented to Patient Baseline) Airway and Respiratory Function: Patent airway with normal (patient baseline) respiratory exam Cardiovascular Function: Hemodynamically Stable Hydration Status: Adequately Hydrated Nausea & Vomiting: No Nausea or Vomiting Pain: Pt. Denies Any Pain Peripheral Nerve Block: Patient did not receive a nerve block
--- NOTE | 2021-03-20 14:56 | ROE_ITS ---
Date of service: 03/20/21 Time of Service: 14:00 Operative Note Operative Note DATE OF PROCEDURE: 03/19/21 PRE-OP DIAGNOSIS: . Neurogenic bowel and decubitus ulcers POST-OP DIAGNOSIS: same PROCEDURE: Diverting colostomy AUT[employer] MECHANIC: Chandrika Mondragon ANESTHESIA TYPE: General LMA/ETT Refer to Anesthesia Record ESTIMATED BLOOD LOSS: 10 PATHOLOGY: none sent Patient was transported to: PACU Patient's condition: stable Procedure Description: Mr. Velasquez is a 55-year-old male who sustained a fall and suffered a C6 fracture which left him quadriplegic. He has been struggling with neurogenic bowel and and having bowel movements. He is on quite a regiment of oral cathartic medication and digital stimulation but is still having problems moving his bowels his case is also been complicated by bilateral ischial ulcers that do involve the bone and show osteomyelitis. They did grow out B fragilis. If we have any hope of healing these ulcers we do need to divert the fecal strea m to prevent further contamination. Patient does understand this. And I went through the rationale with him as to why this was necessary. We also did stoma education and talked about some of the different products that are out there to try to deal with stomas. We discussed what it would be like living with the stoma Informed consent is obtained and witnessed is a verbal consent is patient cannot sign. Complications include bleeding infection pneumonia and blood clots. AR stroke or from anesthesia other unforetold complications from anesthesia which they will review. Complications could include wound infections stoma stoma retraction more hernia or complications from anesthesia. Again patient gives verbal consent and this was made witnessed by his nurse. Patient is brought back to the operative room suite and placed in the supine position with all bony surfaces padded. He has had some high per tensive crisis but general anesthesia slowly a line is used and he will be admitted to the ICU for observation postprocedure He did not do a bowel prep we just did 2 enemas to clear out the rectal area he did receive 1 g Invanz prior to cut time. He already has a chronic indwelling suprapubic tube. The patient was prepped and draped in the usual sterile fashion using a Betadine scrub solution. We had taken time and discussed with the patient and define the optimal site Holden he would like to have a stoma and this was marked the day prior. A #10 blade is used to make a 3 inch incision just above the pubis electrocautery was used to provide hemostasis and dissect down to the deeper tissues. The peritoneum is elevated and entered sharply upon entering the abdomen the colon is interrogated. His few small diverticula on the sigmoid colon the sigmoid colon is free of any sidewall attachments there are no adhesions there is no sign of any acute abscesses. None is on a very long thin mesentery he does have significant amount of hard stool within the colon the sigmoid is divided just proximal to the rectosigmoid junction. This was done with a SABINE stapler. LigaSure is used to divide the omentum. The distal rectal stump staple lines are oversewn with 3-0 Prolene in a traditional Lembert fashion. The 3-0 Prolene is left w/ long tails, in case he ever wants to be reanastomosed. The fatty attachments are taken off of the proximal limb w/a combination of sharp and electrical dissection. The colon is pink and healthy. The spot for the colostomy is chosen in the right lower quadrant. A circumferential incision is created removing skin cruciate is incision is done over the fascia the rectus muscle split in the little. The peritoneal fashion is also scored as well the wound is enlarged the sigmoid colon is brought up through the incision. It is tacked into places to be peritoneal sidewall with 2-0 Vicryl the abdominal cavity is then irrigated and irrigated remove Interceed is placed under the incision peritoneum was closed with 0 Vicryl in a running fashion fascia was closed with #1 PDS in running fashion skin is approximated with sharla the colostomy was then matured using 3-0 Vicryl at the Compass points. the creation of the final ostomy was matured using 4-0 Vicryl. A colostomy appliance is applied. Patient tolerated procedure well without complication his blood pressure remained stable throughout the case. He will be monitored in ICU for 24 hours after the procedure
--- NOTE | 2021-03-20 17:23 | W.ANESVAS ---
Arterial Line Placement Date Performed: 03/20/21 Procedure Time: 16:18 Procedure Location: Operating Room Positive Modified Jose Test?: Yes Timeout Performed: Yes Sedation Given (Indicate Dose Given): No Sedation given Patient Mental Status: Performed under general anesthesia Sterility: Hand Hygiene, Surgical Cap, Surgical Mask, Sterile Gloves and Chlorhexidine Laterality: Left Insertion Site: Radial Arterial Line Catheter: 20G Arrow Arterial Line Procedure: Vessel accessed with catheter over needle, Guidewire placed with ease and Catheter placed without resistance Dressing: Tegaderm Applied Ultrasound: Sterile probe cover and gel used Ultrasound Image Saved?: No Number of Attempts (See previous attempts in note section): 2 Procedure Tolerated: No Complications and Patient tolerated well Procedure Outcome: Successful Performed By: Eliane La Supervised By: Mickey Martínez
[2021-03-20] MEDS: Simethicone 80 MG CHEW 40 MG PO (18:00)
[2021-03-20] MEDS: HYDROmorphone 2 MG TAB PO ×2 (18:01→21:09)
[2021-03-20] MEDS: IRON SUCROSE COMPLEX 300 MG in Normal Saline 250 ML 176.666 MG IVPB (18:56)
[2021-03-20 19:00] LABS: Vancomycin, Trough 22.2 ug/mL (10.0-20.0)
[2021-03-20] MEDS: HYDROmorphone 2 MG/ML VIAL IVP (19:10)
[2021-03-20] MEDS: Ascorbic Acid 500 MG TAB PO (19:11)
[2021-03-20] MEDS: Protein Nutritional Supplement 16 GM 1 OUNCE PACKET PO (19:12)
[2021-03-20] MEDS: ACETAMINOPHEN 1,000 MG/100 ML BTL 400 MG IVPB (19:13)
[2021-03-20] MEDS: Normal Saline Flush 10 ML SYR 20 ML IVP (19:13)
[2021-03-20] MEDS: Melatonin 3 MG TAB 6 MG PO (19:17)
[2021-03-20] MEDS: Zolpidem 10 MG TAB PO (19:17)
[2021-03-20] MEDS: Mirtazapine 15 MG TAB 30 MG PO (19:18)
[2021-03-20] MEDS: Carbamide Peroxide 15 ML BTL AU (20:08)
[2021-03-20] MEDS: Normal Saline Flush 10 ML SYR IVP (21:22)
[2021-03-20] MEDS: Ketorolac 15 MG/ML VIAL IVP (21:25)
--- NOTE | 2021-03-20 22:35 | W.PM.PROGNOT ---
Date of Service Date of service: 03/20/21 Time of Service: 22:35 Assessment and Plan Assessment and plan (1) Neurogenic bowel: Status: Acute Assessment and plan: The patient is doing well post-op. Patient is complaining of pain and pain meds are adjusted they are having no nausea or vomiting. The pt is not having any chest pain or SOB, productive cough; no calf pain or swelling. The pt is making good urine. The pt pain is adequately controlled. The case was discussed with nursing and patients progress reviewed. All of the pt's home medications were addressed and adjusted accordingly for their oral intact status. HEENT: no jaundice. no eye pain/drainage/redness/swelling. mild sore throat cardio- NSR no chest pain, BP stable. pulm: no sob or productive cough. no hemoptysis incision- clean/dry. dressing intact no excessive bleeding or drainage. There is some drainage from the ostomy appliance at the 7 o'clock position. This was reinforced. The stoma is pink and patent. I discussed with the patient about the findings in surgery and the pt's prognosis. We reviewed expectations for progress in the hospital; what the pt could expect for recovery time and length of stay. We discussed the importanc of pulmonary toilet to avoid blood clots and pneumonia. Continue current plans for pulmonary toilet, GI and DVT prophylaxis. We shall continue the current plan for pain management as it is at an appropriate level and working well for the pt. Appropriate measures will be taken for constipation prevention as well, and this was also reviewed with the pt. A wound care plan was reviewed with nursing as well. Patient will continue with ostomy cares, and wound care for his ulcers. And antibiotics for his osteomyelitis. Patient does have a history of C. difficile and will need to get him back on probiotics as soon as his GI tract has recovered. see orders (2) Constipation due to neurogenic bowel: Status: Acute (3) Acute osteomyelitis of sacrum: Status: Acute (4) Decubitus ulcer of buttock, stage 4: Status: Acute Qualifiers: Laterality: left Qualified Code(s): L89.324 - Pressure ulcer of left buttock, stage 4 (5) H/O deep venous thrombosis: Status: Chronic (6) Quadriplegia: Status: Chronic (7) UTI (urinary tract infection): Status: Acute Qualifiers: Encounter type: initial encounter Indwelling urinary catheter type: indwelling urethral catheter Urinary tract infection type: catheter-associated UTI Qualified Code(s): T83.511A - Infection and inflammatory reaction due to indwelling urethral catheter, initial encounter; N39.0 - Urinary tract infection, site not specified (8) Neurogenic bladder: Status: Chronic Objective Last Vital Signs Temp 36.0 C L 03/20/21 14:14 Pulse 68 03/20/21 16:00 Resp 18 03/20/21 09:36 BP 109/69 03/20/21 16:00 Pulse Ox 97 03/20/21 16:00 Laboratory Results - last 24 hr 03/20/21 03/20/21 03/20/21 06:15 06:15 17:50 WBC 9.58 RBC 3.25 L Hgb 8.6 L Hct 27.4 L MCV 84.3 MCH 26.5 L MCHC 31.4 L RDW 14.1 Plt Count 259 MPV 10.7 Immature Gran % 0.4 Neutrophils % 68.2 Lymphocytes % 17.5 Monocytes % 9.0 Eosinophils % 4.7 Basophils % 0.2 Nucleated RBC % 0 Absolute Neutrophils 6.53 Absolute Lymphocytes 1.68 Absolute Monocytes 0.86 H Absolute Eosinophils 0.45 Absolute Basophils 0.02 Sodium 139 Potassium 3.9 Chloride 104 Carbon Dioxide 27.1 Anion Gap 7.9 BUN 22 H Creatinine 0.7 Estimated GFR/1.73 m2 >= 60.00 Glucose 105 Calcium 9.4 Vancomycin Trough 22.2 H*
[2021-03-21] VITALS (40 sets, daily range): BP systolic 84–141; BP diastolic 51–92; PULSE 56–87; RESP 11–24; TEMP 35.9–36.2; O2SAT 71–100
[2021-03-21] MEDS: cefTRIAXone 1 GM/50 ML BAG IVPB (00:49)
[2021-03-21] MEDS: Normal Saline Flush 10 ML SYR IVP ×2 (00:55→15:33)
[2021-03-21] MEDS: ACETAMINOPHEN 1,000 MG/100 ML BTL 400 MG IVPB ×4 (02:22→21:12)
[2021-03-21] MEDS: Ketorolac 15 MG/ML VIAL IVP ×4 (02:22→21:08)
[2021-03-21] MEDS: HYDROmorphone 2 MG TAB PO ×2 (05:44→12:40)
--- NOTE | 2021-03-21 07:51 | W.PM.PROGNOT ---
Documented by User: KAN Da Silva 03/21/21 12:49 Date of Service Date of service: 03/21/21 Time of Service: 07:00 Assessment and Plan Assessment and plan (1) Neurogenic bowel: Status: Acute Assessment and plan: POD #1 s/p diverting colostomy Stoma is pink and patent. Changed the colostomy bag secondary to concern for pressure around the dressing from swelling. Serosanginous drainage noted in the bag. Patient education was provided during the dressing change. Per Dr. Zhu's recommendation. Ordered Baclfen 10 mg TID for muscle spams. (2) Constipation due to neurogenic bowel: Status: Acute (3) Acute osteomyelitis of sacrum: Status: Acute (4) Decubitus ulcer of buttock, stage 4: Status: Acute Qualifiers: Laterality: left Qualified Code(s): L89.324 - Pressure ulcer of left buttock, stage 4 (5) H/O deep venous thrombosis: Status: Chronic (6) Quadriplegia: Status: Chronic (7) UTI (urinary tract infection): Status: Acute Qualifiers: Encounter type: initial encounter Indwelling urinary catheter type: indwelling urethral catheter Urinary tract infection type: catheter-associated UTI Qualified Code(s): T83.511A - Infection and inflammatory reaction due to indwelling urethral catheter, initial encounter; N39.0 - Urinary tract infection, site not specified (8) Neurogenic bladder: Status: Chronic Subjective Subjective Interval history since last seen: Patient reports he is doing okay this morning. States that he is having bad muscle spasms today. Exam Const General: cooperative, healthy appearing and comfortable Orientation: alert and oriented x3 Resp Effort & Inspection: normal respiratory effort, no audible wheezes and no cough GI Other: Stoma is pink and healthy with mild swelling. Serosanginous drainage in the colostomy bag. Objective Last Vital Signs Temp 36.1 C L 03/21/21 04:15 Pulse 87 03/21/21 05:30 Resp 24 03/21/21 05:30 BP 137/67 03/21/21 05:40 Pulse Ox 71 L 03/21/21 05:30 Laboratory Results - last 24 hr 03/20/21 17:50 Vancomycin Trough 22.2 H* Documented by User: Bhumi Valerio ChasityDO 03/21/21 13:42 Assessment and Plan Assessment and plan (1) Neurogenic bowel: Status: Acute Assessment and plan: Patient seen and examined. Agree with above. Today patient is having pain in his back. He is not complaining of any incisional or stomal pain. He does have good bowel sounds. He is not distended. He has had no bowel movements or bleeding from his rectum. He has not been passing any gas. On physical exam his lungs are clear. He is now running a temperature. He has no thrush. His ostomy is pink patent. There is no stool. He does have good bowel sounds. He does not have much of an appetite. -Continue on clears until he is passing gas. He is on Entereg. He does have a lot of formed stool in the colon that does need to pass. -Hold more of his vitamin type po/medications until he is passing stool. -Antibiotics per infectious disease to cover his osteomyelitis. No antibiotics are required because of his recent colorectal surgery. His probiotics are currently being held. -Continue pulmonary toilet. No signs of pneumonia. -He is on PPI for GI prophylaxis. -He is on subcutaneous heparin for DVT prophylaxis. -Wound VAC care and dressing changes continue as previously ordered. Presently wound dressing change Thursday -Continue OT and PT -DC A-line. And transfer to [facility]. His BP has been stable on the last 18 hours. (2) Constipation due to neurogenic bowel: Status: Acute (3) Acute osteomyelitis of sacrum: Status: Acute (4) Decubitus ulcer of buttock, stage 4: Status: Acute Qualifiers: Laterality: left Qualified Code(s): L89.324 - Pressure ulcer of left buttock, stage 4 (5) S/P colostomy: Status: Acute
--- NOTE | 2021-03-21 07:58 | W.PALPGNOTE ---
Date of service: 03/21/21 Time of Service: 07:58 Assessment and Plan Assessment and plan (1) Neurogenic bowel: Status: Acute (2) Acute osteomyelitis of sacrum: Status: Acute (3) Quadriplegia: Status: Chronic (4) Palliative care patient: Status: Acute Assessment and plan: Favio was a bit more quiet today than he was the last time I saw him. I am not sure if some of this is from him coming out of the anesthesia. Wound people well work on the wound VAC today Stoma looks appropriate for someone who just had a colostomy Definitely appears uncomfortable. I recommend increasing his baclofen from 5 mg 4 times daily to 10 mg 3 times daily. Also in this immediate postop time his Dilaudid might be best increased in frequency if necessary. I will continue to touch base with Favio. Subjective Subjective Interval history since last seen: I met Favio for the first time on Thursday. He was concerned about the upcoming surgery which he underwent yesterday. He had a colostomy so as to help with decontamination of his sacral wound. He was quite anxious about this as it meant more interventions. He is about 5 months into his quadriplegia and all of this is new to him. It is also overwhelming to him. Nursing states that he has continued with shoulder pain. He also has been very sleepy because of the anesthesia. They did need to take the wound VAC off because it was leaking. Exam Narrative Exam Narrative: Favio is lying in bed. He can move his shoulders. He is a little groggy but answers questions appropriately. His stoma is somewhat edematous. I did not have him turned on his side to examine his sacral wound. His heart is regular. His lungs pretty good air movement. While I was in the room he had 3 episodes of body spasms Objective Last Vital Signs Temp 97.0 F L 03/21/21 04:15 Pulse 59 L 03/21/21 07:31 Resp 16 03/21/21 07:31 BP 95/68 L 03/21/21 07:31 Pulse Ox 96 03/21/21 07:31 Laboratory Results - last 24 hr 03/20/21 17:50 Vancomycin Trough 22.2 H*
[2021-03-21] MEDS: Lactated Ringers 1,000 ML 75 ML IV (08:03)
--- NOTE | 2021-03-21 08:27 | PDOC.CMPRO ---
- If Service Date Differs Date of service: 03/21/21 Time of Service: 08:27 Care Management Progress Note S/O: Favio was sitting up in bed when CM met with him. He shared that he went to surgery yesterday for a colostomy. He indicated that he was not pleased with this development but verbalized understanding why it is necessary. He has large decubitus ulcers on his sacrum which keep getting contaminated with stool. Favio has been waiting for approval for social security disability. This afternoon CM assisted Favio with making the call to [facility] and Favio learned that he has been approved for disability and will receive his first payment on the thursday in May. He will receive $1585 on the thursday of every month thereafter. This is especially important since it is a pre-requisite to receiving [place] med[place]. [facility] also contacted [facility] in [place], [place] where a referral was sent on behalf of Favio last week. They have declined to accept him for admission as he is too low a level of care. A: Favio is a 55 year old man admitted to [facility] on 02/22/21 with obstipation P: Favio will likely continue to seek placement at a different facility with the help of his family. He will follow up with their provider's plan of care. Favio will transport via ambulance coordinated by [facility]. CM will continue to support Favio and his family and assess for ongoing discharge concerns.
[2021-03-21] MEDS: DULoxetine 30 MG CAP PO (09:11)
[2021-03-21] MEDS: busPIRone 5 MG TAB 10 MG PO ×3 (09:11→20:53)
[2021-03-21] MEDS: Midodrine 2.5 MG TAB PO ×2 (09:11→20:54)
[2021-03-21] MEDS: Baclofen 10 MG TAB PO ×3 (09:11→20:53)
[2021-03-21] MEDS: Normal Saline Flush 10 ML SYR 20 ML IVP ×2 (09:11→20:54)
[2021-03-21] MEDS: Protein Nutritional Supplement 16 GM 1 OUNCE PACKET PO ×2 (09:12→15:29)
[2021-03-21] MEDS: VANCOMYCIN/WATER (PEG) 1.25 GM/250 ML BAG IVPB ×2 (09:47→21:35)
[2021-03-21] MEDS: HYDROmorphone 2 MG/ML VIAL 0.4 MG IVP (10:15)
--- NOTE | 2021-03-21 11:26 | W.PM.PROGNOT ---
Date of Service Date of service: 03/21/21 Time of Service: 11:26 Assessment and Plan Assessment and plan (1) Acute osteomyelitis of sacrum: Status: Acute Assessment and plan: continue antibiotics day 5 vancom[address] line in place surgical wound biopsy growing Proteus mirabilils, staph aureus, and corynebacterium CRP 13. 41 palliative consulted Maximize protein to encourage wound healing. Vitamin C and zinc supplementation for wound healing Reposition every 2 hours Continue PT and OT s/p Colostomy POD #[address] Gaspar (2) Quadriplegia: Status: Chronic Assessment and plan: ?loss of sensation from chest down. Voluntary arm movement but unable to move hands and feed himself (3) UTI (urinary tract infection): Status: Acute Assessment and plan: staph epi greater than 100,000 colonies growing in urine, sensitive to ceftriaxone, day 3 03/16 urine culture: enterococcus faecalis sensistive to vanco day 5 Qualifiers: Encounter type: initial encounter Indwelling urinary catheter type: indwelling urethral catheter Urinary tract infection type: catheter-associated UTI Qualified Code(s): T83.511A - Infection and inflammatory reaction due to indwelling urethral catheter, initial encounter; N39.0 - Urinary tract infection, site not specified (4) DVT prophylaxis: Status: Chronic Assessment and plan: enoxaparin (5) Discharge planning issues: Status: Acute Assessment and plan: case management following discussed with Dr Olson Subjective Subjective Patient reports: no new complaints, tolerating liquids well, tolerating a regular diet, no bowel movement and afebrile; denies shortness of breath Exam Narrative Exam Narrative: General: cooperative, no acute distress and ill appearing chronically, pleasant lying in bed Nutritional Appearance: obese centrally obese Orientation: alert, awake and oriented x3 EOM: EOM intact bilaterally Chest: normal inspection of the chest Effort & Inspection: normal respiratory effort Auscultation: clear to auscultation bilaterally Inspection: normal to inspection Auscultation: normal bowel sounds Sacrum: other (decubitus ulcers unable to examine wound vac in place) Wounds: wounds noted (unable to visualize wound vac in place) General: patient alert, patient awake and patient oriented x3 Cognition: normal cognition Speech: speech normal no motor function from chest down though voluntary movements with bilateral arms unable to move hands psyche: flat affect, depressed mood Objective Last Vital Signs Temp 35.9 C L 03/21/21 08:05 Pulse 68 03/21/21 10:30 Resp 11 L 03/21/21 10:30 BP 121/73 03/21/21 10:34 Pulse Ox 97 03/21/21 10:30 Laboratory Results - last 24 hr 03/20/21 17:50 Vancomycin Trough 22.2 H*
[2021-03-21] MEDS: Simethicone 80 MG CHEW 40 MG PO (15:31)
[2021-03-21] MEDS: Lactated Ringers 1,000 ML 100 ML IV (16:34)
[2021-03-21] MEDS: Carbamide Peroxide 15 ML BTL AU (21:20)
[2021-03-21] MEDS: Melatonin 3 MG TAB 6 MG PO (21:42)
[2021-03-21] MEDS: Zolpidem 10 MG TAB PO (21:43)
[2021-03-21] MEDS: Mirtazapine 15 MG TAB 30 MG PO (21:43)
[2021-03-21] MEDS: Enoxaparin 40 MG/0.4 ML SYR SC (22:03)
[2021-03-22] MEDS: cefTRIAXone 1 GM/50 ML BAG IVPB (00:18)
[2021-03-22] MEDS: ACETAMINOPHEN 1,000 MG/100 ML BTL 400 MG IVPB ×4 (02:48→19:39)
[2021-03-22] MEDS: Lactated Ringers 1,000 ML 75 ML IV (02:48)
[2021-03-22] MEDS: Ketorolac 15 MG/ML VIAL IVP ×4 (02:48→21:35)
[2021-03-22] MEDS: Normal Saline Flush 10 ML SYR IVP ×3 (02:48→14:59)
[2021-03-22 07:13] VITALS: BP 157/88; PULSE 83; RESP 17; TEMP 36.6; O2SAT 97
--- NOTE | 2021-03-22 07:48 | PGE_ITS ---
Date of Service Date of service: 03/22/21 Time of Service: 07:48 Assessment and Plan Assessment and plan (1) Neurogenic bowel: Status: Acute Assessment and plan: POD #2 s/p diverting colostomy Stoma is pink and patent. Abdomen is distended, (+) Bowel Sounds. He is currently on a bowel regimen however minimal stool output. Small amount of brown formed stool noted in colostomy bag. He is tolerating a regular diet. (2) Constipation due to neurogenic bowel: Status: Acute (3) Acute osteomyelitis of sacrum: Status: Acute (4) Decubitus ulcer of buttock, stage 4: Status: Acute Qualifiers: Laterality: left Qualified Code(s): L89.324 - Pressure ulcer of left buttock, stage 4 (5) H/O deep venous thrombosis: Status: Chronic (6) Quadriplegia: Status: Chronic (7) UTI (urinary tract infection): Status: Acute Qualifiers: Urinary tract infection type: catheter-associated UTI Indwelling urinar y catheter type: indwelling urethral catheter Encounter type: initial encounter Qualified Code(s): T83.511A - Infection and inflammatory reaction due to indwelling urethral catheter, initial encounter; N39.0 - Urinary tract infection, site not specified (8) Neurogenic bladder: Status: Chronic Subjective Subjective Interval history since last seen: Patient reports that he is feeling okay this morning. He states he was able to get some sleep last night. Exam Const General: cooperative and comfortable Orientation: alert and oriented x3 Resp Effort & Inspection: normal respiratory effort, no audible wheezes and no cough GI Inspection: distended Palpation: soft, no guarding and nontender Percussion: tympanic to percussion Auscultation: normal bowel sounds Objective Last Vital Signs Temp 36.6 C 03/22/21 07:13 Pulse 83 03/22/21 07:13 Resp 17 03/22/21 07:13 BP 157/88 H 03/22/21 07:13 Pulse Ox 97 03/22/21 07:13
[2021-03-22] MEDS: DULoxetine 30 MG CAP PO (09:22)
[2021-03-22] MEDS: Baclofen 10 MG TAB PO ×2 (09:22→13:50)
[2021-03-22] MEDS: busPIRone 5 MG TAB 10 MG PO ×2 (09:22→13:50)
[2021-03-22] MEDS: Midodrine 2.5 MG TAB PO (09:22)
[2021-03-22] MEDS: Carbamide Peroxide 15 ML BTL AU (09:22)
[2021-03-22] MEDS: HYDROmorphone 2 MG/ML VIAL 0.4 MG IVP (09:23)
[2021-03-22] MEDS: Normal Saline Flush 10 ML SYR 20 ML IVP ×2 (09:24→19:39)
--- NOTE | 2021-03-22 09:52 | W.PM.PROGNOT ---
Date of Service Date of service: 03/22/21 Time of Service: 09:52 Assessment and Plan Assessment and plan (1) Acute osteomyelitis of sacrum: Start date: 03/22/21 Start time: 10:36 Status: Acute Assessment and plan: continue antibiotics day 6 vancomycin He will be on vanco until March [address] Will add zosyn x 14 days due to corynebacterium species in the wound as well as he is having chills, afebril. Repeat blood cultures, but he is not on coverage for this organism surgical wound biopsy growing Proteus mirabilils, staph aureus, and corynebacterium CRP 13. 41 palliative following Maximize protein to encourage wound healing. Vitamin C and zinc supplementation for wound healing Reposition every 2 hours Continue PT and OT s/p Colostomy POD #[address] Gaspar Stoma pink, small amount stool, abd with bs distended. Per ID best chance of healing is hyperbaric chamber, continue to approach weeks outpatient clinic for appt Nothing per rectum per surgery (2) Quadriplegia: Start date: 03/22/21 Start time: 10:41 Status: Chronic Assessment and plan: ?loss of sensation from chest down. Voluntary arm movement but unable to move hands and feed himself (3) UTI (urinary tract infection): Start date: 03/22/21 Start time: 10:42 Status: Acute Assessment and plan: staph epi greater than 100,000 colonies growing in urine,, switched to zosyn to cover both UTI and sacral wound 03/16 urine culture: enterococcus faecalis sensistive to vanco day 5 Qualifiers: Urinary tract infection type: catheter-associated UTI Indwelling urinary catheter type: indwelling urethral catheter Encounter type: initial encounter Qualified Code(s): T83.511A - Infection and inflammatory reaction due to indwelling urethral catheter, initial encounter; N39.0 - Urinary tract infection, site not specified (4) DVT prophylaxis: Start date: 03/22/21 Start time: 10:43 Status: Chronic Assessment and plan: enoxaparin, hold apixaban until bleeding slows from wound (5) Discharge planning issues: Start date: 03/22/21 Start time: 10:43 Status: Acute Assessment and plan: case management following discussed with Dr Olson Subjective Subjective Patient reports: other Interval history since last seen: States having chills. Afebrile at this time. Will repeat blood cultures. He is putting small amount of stool out of colostomy. I placed warm blankets around his shoulders and on his chest which was helpful he also stated being in pain in his shoulders. I made his nurse aware. He denies CP, SOB. Hold Eliquis until surgery agrees to starting when bleeding to wound slows. After speaking with pharmacy coverage for all organisms not being covered. Will cover with zosyn for better coverage, d/c ceftriaxone and start zosynx 14 days. Exam Narrative Exam Narrative: General: cooperative, no acute distress and ill appearing chronically, pleasant lying in bed Nutritional Appearance: obese centrally obese Orientation: alert, awake and oriented x3 EOM: EOM intact bilaterally Chest: normal inspection of the chest Effort & Inspection: normal respiratory effort Auscultation: clear to auscultation bilaterally Inspection: normal to inspection Auscultation: abd round, with colostomy in place; stoma in place pink with bag, small amount Sacrum: other (decubitus ulcers unable to examine wound vac in place) Wounds: wounds noted (unable to visualize wound vac in place) General: patient alert, patient awake and patient oriented x3 Cognition: normal cognition Speech: speech normal no motor function from chest down though voluntary movements with bilateral arms unable to move hands psyche: flat affect, depressed mood Objective Last Vital Signs Temp 36.6 C 03/22/21 07:13 Pulse 83 03/22/21 07:13 Resp 17 03/22/21 07:13 BP 157/88 H 03/22/21 07:13 Pulse Ox 97 03/22/21 07:13
[2021-03-22] MEDS: VANCOMYCIN/WATER (PEG) 1.25 GM/250 ML BAG IVPB ×2 (10:24→22:11)
--- NOTE | 2021-03-22 11:49 | CMPROGNOTE_ITS ---
- If Service Date Differs Date of service: 03/22/21 Time of Service: 11:49 Care Management Progress Note S/O: Favio was lying in bed when CM met with him. He has been complaining of chills today but remains afebrile. CM contacted [facility]'s wound center to investigate the possibility of Favio receiving hyperbaric oxygen treaatment in their clinic. Unfortunately, their HBO program has been suspended until mid-April due to staffing issues. [facility] also contacted a private HBO company that has non-profit clinics throughout [place]. The fact that Favio is a quadriplegic and unable to transfer in/out of bed is a barrier to his receiving care at their facility. The physician that [facility] spoke with did suggest [facility] as they also have a hyperbaric chamber. This information was given to the provider who has agreed to explore the possibility of a transfer. A: Favio is a 55 year old man admitted to [facility] on 02/22/21 with obstipation P: Favio will likely continue to seek placement at a different facility with the help of his family. He will follow up with their provider's plan of care. Favio will transport via ambulance coordinated by [facility]. CM will continue to support Favio and his family and assess for ongoing discharge concerns.
[2021-03-22] MEDS: PIPERACILLIN/TAZO 3.375 GM in Normal Saline 50 ML IVPB ×2 (12:22→18:05)
[2021-03-22] MEDS: Magnesium Citrate 300 ML BTL PO (14:05)
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
[2021-03-22 15:50] VITALS: BP 121/71; PULSE 86; RESP 17; TEMP 36.9; O2SAT 99
[2021-03-22] MEDS: Normal Saline 1,000 ML 80 ML IV (18:45)
[2021-03-22] MEDS: LORazepam 2 MG/ML VIAL 0.5 MG IV (19:51)
--- NOTE | 2021-03-22 20:35 | DI.RAD_ITS ---
Exam(s) XR ABDOMEN FLAT PLATE EXAM: XR ABDOMEN FLAT PLATE CLINICAL HISTORY: distention TECHNIQUE: COMPARISON: CR XR ABDOMEN FLAT PLATE from 02/25/2021 CR,XR XR ABDOMEN FLAT PLATE from 03/23/2021 CR,XR XR PORTABLE CHEST AP POST LINE from 03/23/2021 FINDINGS: Two views were obtained. There is marked dilatation of multiple loops of small and large bowel, nons pecific patient is reportedly post surgical and the findings are consistent with postsurgical ileus. Please correlate clinically, propria follow-up films requested.. IMPRESSION: RADIATION DOSE DELIVERED: Total DLP
--- NOTE | 2021-03-22 21:19 | DI.VRAD_ITS ---
PROCEDURE INFORMATION: Exam: XR Abdomen Exam date and time: 03/22/2021 8:06 PM Age: 55 years old Clinical indication: Abdominal pain; Generalized; Prior surgery; Surgery date: Post-operative (0-2 days); Patient HX: Distention TECHNIQUE: Imaging protocol: XR of the abdomen. Views: Frontal supine view of the abdomen. 1 View. COMPARISON: CR XR ABDOMEN FLAT PLATE 02/25/2021 10:00 AM FINDINGS: Gastrointestinal tract: Gaseous distention of the visualized bowel, ileus versus mechanical bowel obstruction. Cannot rule out free intraperitoneal air. Bones/joints: Degenerative changes within lumbar spine. IMPRESSION: Gaseous distention of the visualized bowel, mechanical bowel obstruction versus ileus. Cannot rule out free intraperitoneal air. Dictated and Authenticated by: Leland Denny MD. Ordering:SUPA Tello MD
--- NOTE | 2021-03-22 21:30 | DI.RAD_ITS ---
Exam(s) XR PORTABLE CHEST AP POST LINE EXAM: XR PORTABLE CHEST AP POST LINE CLINICAL HISTORY: obstipation TECHNIQUE: COMPARISON: CR XR PORTABLE CHEST AP from 03/15/2021 FINDINGS: Portable semi upright chest at 2124 hours. There is a left-sided PICC line in place the tip of which lies near the junction of SVC and right atrium. Lungs are clear and well expanded. There is an NG tube in position, this lies near the GE junction and may lie in the esophagus, appropriate adjustment suggested. IMPRESSION: RADIATION DOSE DELIVERED: Total DLP
[2021-03-22] MEDS: LORazepam 2 MG/ML VIAL 1 MG IVP (21:35)
--- NOTE | 2021-03-22 21:50 | DI.VRAD_ITS ---
PROCEDURE INFORMATION: Exam: XR Chest Exam date and time: 03/22/2021 9:17 PM Age: 55 years old Clinical indication: Patient HX: Obstipation. Ng tube placement TECHNIQUE: Imaging protocol: XR of the chest. Views: 1 view. COMPARISON: CR XR PORTABLE CHEST AP 03/15/2021 9:41 AM FINDINGS: Tubes, catheters and devices: Gastric tube in place, not clearly seen past the gastroesophageal junction, consider advancement and repeat radiographs. Left-sided PICC line in place with the tip in the region of the superior vena cava. Partially visualized hardware within cervical and upper thoracic spine, status post posterior spinal instrumentation. Lungs: Unremarkable. No consolidation. Pleural spaces: Unremarkable. No pleural effusion. No pneumothorax. Heart/Mediastinum: Unremarkable. No cardiomegaly. Bones/joints: Unremarkable. IMPRESSION: No infiltrates or effusions. Gastric tube in place with the tip in the region of the gastroesophageal junction, consider advancement and repeat radiographs. Left-sided PICC line in place. Dictated and Authenticated by: Leland Denny MD. Ordering:ODETTE Tripathi MD
[2021-03-23] VITALS (25 sets, daily range): BP systolic 102–145; BP diastolic 64–93; PULSE 62–85; RESP 12–22; TEMP 36.3–36.6; O2SAT 87–100
--- NOTE | 2021-03-23 | DI.RAD_ITS ---
Exam(s) XR ABDOMEN FLAT PLATE EXAM: XR ABDOMEN FLAT PLATE CLINICAL HISTORY: Abdominal distention, s/p ostomy TECHNIQUE: COMPARISON: CR,XR XR ABDOMEN FLAT PLATE from 03/22/2021 FINDINGS: Two views were obtained. Examination is compared with yesterday's examination, no gross interval yumi nge in appearance of multiple dilated loops of small and large bowel consistent with ileus. IMPRESSION: RADIATION DOSE DELIVERED: Total DLP
--- NOTE | 2021-03-23 | DI.RAD_ITS ---
Exam(s) XR ABDOMEN FLAT PLATE EXAM: XR ABDOMEN FLAT PLATE CLINICAL HISTORY: Ng tube placement TECHNIQUE: COMPARISON: CR,XR XR PORTABLE CHEST AP POST LINE from 03/23/2021 FINDINGS: Portable upright view was obtained. Note is again made of moderate bowel distension. An NG tube has been placed and appears to lie in the stomach. IMPRESSION: RADIATION DOSE DELIVERED: Total DLP
[2021-03-23] MEDS: PIPERACILLIN/TAZO 3.375 GM in Normal Saline 50 ML IVPB ×4 (00:12→17:40)
[2021-03-23] MEDS: ACETAMINOPHEN 1,000 MG/100 ML BTL 400 MG IVPB ×4 (02:04→20:13)
[2021-03-23] MEDS: Ketorolac 15 MG/ML VIAL IVP ×4 (04:02→21:20)
--- NOTE | 2021-03-23 08:15 | DI.RAD_ITS ---
Exam(s) XR PORTABLE CHEST AP EXAM: XR PORTABLE CHEST AP CLINICAL HISTORY: ? free air TECHNIQUE: COMPARISON: CR,XR XR PORTABLE CHEST AP POST LINE from 03/22/2021 FINDINGS: Portable AP chest at 08:52. The heart is not enlarged. Lungs are clear and well expanded. No gross free intraperitoneal air identified on this chest radiograph. Left PICC line again noted in positio n. Previously noted NG tube has been withdrawn. IMPRESSION: RADIATION DOSE DELIVERED: Total DLP
--- NOTE | 2021-03-23 09:11 | W.PM.PROGNOT ---
Date of Service Date of service: 03/23/21 Time of Service: 09:11 Assessment and Plan Assessment and plan (1) Neurogenic bowel: Status: Acute (2) S/P colostomy: Status: Acute Assessment and plan: POD #3 s/p colostomy placement for neurogenic bowel. He looks like he is obstipated Will try reglan q6h and get another XRay if no improvement will get a CT scan. Subjective Subjective Interval history since last seen: Bruce had a rough night. His abdomen is distended. He had an NG tube in over night but unfortunately it was pulled out this am. He had 550 cc overnight. His abdomen is very distended and tender. XR last night showed a very dilated large bowel. NO free air noted on XRay Exam Const General: cooperative Orientation: alert and oriented x3 Resp Effort & Inspection: normal respiratory effort Auscultation: clear to auscultation bilaterally and diminished lung sounds bilaterally in the lower lung kothari Cardio Rate: regular rate Rhythm: regular rhythm GI Inspection: distended Palpation: soft and tender Auscultation: hypoactive bowel sounds Other: Ostomy- pink and edematous Digital exam revealed a lot of soft stool about 5 cm down. Rectal tube was gently placed and 2 fleets enemas were given with some results of liquid and paste like stool. Water was also used to try and clear any stool. Objective Last Vital Signs Temp 97.3 F L 03/23/21 07:28 Pulse 84 03/23/21 07:28 Resp 17 03/23/21 07:28 BP 116/70 03/23/21 07:28 Pulse Ox 97 03/23/21 07:28
--- NOTE | 2021-03-23 09:19 | NT_ITS ---
PT Notes Visit Reasons: Osteo of left buttocks, UTI, Quadrapelgic 03/23/2021 Hold per medical reasons. Kristy Perez, IT WEB DEVELOPMENT CONSULTANT
--- NOTE | 2021-03-23 09:26 | DI.VRAD_ITS ---
PROCEDURE INFORMATION: Exam: XR Abdomen Exam date and time: 03/23/2021 8:27 AM Age: 55 years old Clinical indication: Other: Abd distention S/P ostomy; Prior surgery; Surgery date: Post-operative (0-2 days) TECHNIQUE: Imaging protocol: XR of the abdomen. Views: Frontal supine view of the abdomen. 1 View. COMPARISON: CR XR ABDOMEN FLAT PLATE 03/22/2021 8:27 PM FINDINGS: Gastrointestinal tract: Redemonstrated diffuse gaseous distention of large and small. Bones/joints: Unremarkable. IMPRESSION: Redemonstrated gaseous distention of large and small bowel given the recent postoperative period, likely ileus. Dictated and Authenticated by: Lauri Jett MD. Ordering:BARRINGTON Aldrich MD
--- NOTE | 2021-03-23 09:27 | DI.VRAD_ITS ---
PROCEDURE INFORMATION: Exam: XR Chest Exam date and time: 03/23/2021 8:27 AM Age: 55 years old Clinical indication: Other: ? Free air. S/P ostomy; Prior surgery; Surgery date: Post-operative (0-2 days) TECHNIQUE: Imaging protocol: XR of the chest. Views: 1 view. COMPARISON: CR XR PORTABLE CHEST AP POST LINE 03/22/2021 9:23 PM FINDINGS: Tubes, catheters and devices: Interval removal of enteric tube. Left upper extremity PICC with distal catheter tip at the caval atrial junction. Lungs: No consolidation. Pleural spaces: No pleural effusion. No pneumothorax. Heart/Mediastinum: Unremarkable. No cardiomegaly. Bones/joints: Partially visualized cervicothoracic posterior fixation construct. IMPRESSION: 1. Interval removal of enteric tube. 2. Left upper extremity PICC, unchanged. 3. No acute cardiopulmonary findings. Dictated and Authenticated by: Lauri Jett MD. Ordering:BARRINGTON Aldrich MD
[2021-03-23 09:30] LABS: Vancomycin, Trough 15.1 ug/mL (10.0-20.0)
[2021-03-23] MEDS: Metoclopramide 10 MG/2 ML VIAL IVP ×3 (09:40→20:15)
[2021-03-23] MEDS: Lidocaine 2% Jelly 11 ML SYR UR (09:40)
[2021-03-23] MEDS: Normal Saline Flush 10 ML SYR 20 ML IVP ×2 (09:40→20:14)
[2021-03-23] MEDS: LORazepam 2 MG/ML VIAL 0.5 MG IV ×2 (10:23→14:18)
--- NOTE | 2021-03-23 10:30 | DI.RAD_ITS ---
Exam(s) XR PORTABLE CHEST AP POST LINE EXAM: XR PORTABLE CHEST AP POST LINE CLINICAL HISTORY: ? Aspiration TECHNIQUE: COMPARISON: CR,XR XR PORTABLE CHEST AP from 03/23/2021 FINDINGS: Portable AP chest at 1143 hours. Heart is not enlarged. Lungs are grossly clear. Question slight p rominence of perihilar markings, nonspecific. No pleural effusion seen on this frontal film. Left c ostophrenic angle is not included on the film. NG tube now placed with distal tip nonvisualized but probably in the stomach. PICC line again noted. IMPRESSION: RADIATION DOSE DELIVERED: Total DLP
[2021-03-23] MEDS: VANCOMYCIN/WATER (PEG) 1.25 GM/250 ML BAG IVPB ×2 (10:41→21:21)
[2021-03-23] MEDS: Normal Saline 1,000 ML 80 ML IV (10:44)
--- NOTE | 2021-03-23 11:45 | W.PM.PROGNOT ---
Date of Service Date of service: 03/23/21 Time of Service: 11:45 Assessment and Plan Assessment and plan (1) Aspiration into airway: Status: Acute Assessment and plan: requiring oxygen, on zosyn pulmonary toileting closely monitor respiratory status (2) Ileus: Status: Acute Assessment and plan: NGT inserted per surgery (3) Acute osteomyelitis of sacrum: Status: Acute Assessment and plan: continue antibiotics vancomycin and zosyn PICC line in place surgical wound biopsy growing Proteus mirabilils, staph aureus, and corynebacterium CRP 13. 41 palliative consulted Maximize protein to encourage wound healing. Vitamin C and zinc supplementation for wound healing Reposition every 2 hours Continue PT and OT s/p Colostomy (4) Quadriplegia: Status: Chronic Assessment and plan: ?loss of sensation from chest down. Voluntary arm movement but unable to move hands and feed himself (5) UTI (urinary tract infection): Status: Acute Assessment and plan: on zosyn and vanco Qualifiers: Encounter type: initial encounter Indwelling urinary catheter type: indwelling urethral catheter Urinary tract infection type: catheter-associated UTI Qualified Code(s): T83.511A - Infection and inflammatory reaction due to indwelling urethral catheter, initial encounter; N39.0 - Urinary tract infection, site not specified (6) DVT prophylaxis: Status: Chronic Assessment and plan: enoxaparin (7) Discharge planning issues: Status: Acute Assessment and plan: case management following discussed with Dr Montoya Subjective Subjective Patient reports: no bowel movement and shortness of breath; denies tolerating liquids well and tolerating a regular diet Interval history since last seen: pulled out NG tube at 6 am and continues to have distention and no bowel sounds. reinserted by Dr Pedersen. vomited during procedure and possibly aspirated Exam Narrative Exam Narrative: General: , mild distress and ill appearing fatigued, lying in bed Nutritional Appearance: obese centrally obese Orientation: alert, awake and oriented x3 EOM: EOM intact bilaterally Chest: normal inspection of the chest Effort & Inspection: some respiratory distress after aspiration resp: course scattered abdomen: no normal bowel sounds, no drainage from colostomy Sacrum: (decubitus ulcers unable to examine wound vac in place) General: patient alert, patient awake and patient oriented x3 Cognition: normal cognition Speech: speech normal no motor function from chest down though voluntary movements with bilateral arms unable to move hands psyche: flat affect, depressed mood Objective Last Vital Signs Temp 36.3 C L 03/23/21 07:28 Pulse 84 03/23/21 07:28 Resp 17 03/23/21 07:28 BP 116/70 03/23/21 07:28 Pulse Ox 94 03/23/21 10:47 Laboratory Results - last 24 hr 03/23/21 09:15 Vancomycin Trough 15.1
--- NOTE | 2021-03-23 12:12 | DI.VRAD_ITS ---
PROCEDURE INFORMATION: Exam: XR Chest Exam date and time: 03/23/2021 10:40 AM Age: 55 years old Clinical indication: Other: R/O aspiration post ng tube placement TECHNIQUE: Imaging protocol: XR of the chest. Views: 1 view. COMPARISON: CR XR PORTABLE CHEST AP 03/23/2021 8:52 AM FINDINGS: Tubes, catheters and devices: Interval placement of enteric tube with tip below the gastroesophageal junction. Left upper extremity PICC with distal catheter tip about the lower SVC. Lungs: The lungs are somewhat hypoinflated. Bronchovascular crowding and mild peribronchial opacities. No focal consolidation. Pleural spaces: No pleural effusion. No pneumothorax. Heart/Mediastinum: Unchanged. No cardiomegaly. Bones/joints: Partially visualized cervicothoracic posterior fixation construct. Gastrointestinal tract: Partially visualized upper abdomen demonstrates numerous loops of gas-filled small and large bowel. IMPRESSION: 1. No focal airspace consolidation. In the interval, there are increased peribronchial opacities and bronchovascular crowding, cannot entirely exclude acute aspiration in the proper clinical setting. 2. Interval placement of enteric tube with tip likely within the stomach. Dictated and Authenticated by: Lauri Jett MD. Ordering:BARRINGTON Aldrich MD
--- NOTE | 2021-03-23 12:15 | DI.VRAD_ITS ---
PROCEDURE INFORMATION: Exam: XR Abdomen Exam date and time: 03/23/2021 11:46 AM Age: 55 years old Clinical indication: Patient HX: Evaluate ng tube placement. TECHNIQUE: Imaging protocol: XR of the abdomen. Views: Frontal supine view of the abdomen. 1 View. COMPARISON: CR XR ABDOMEN FLAT PLATE 03/23/2021 8:35 AM FINDINGS: Tubes, catheters and devices: Interval placement of enteric tube with tip below the gastroesophageal junction. Gastrointestinal tract: Partially visualized abdomen redemonstrates numerous loops of gas distended large and small bowel. Bones/joints: Unremarkable. IMPRESSION: 1. Interval replacement of enteric tube as described above. 2. Redemonstrated numerous loops of gas distended large and small bowel, likely ileus. Dictated and Authenticated by: Lauri Jett MD. Ordering:BARRINGTON Aldrich MD
[2021-03-23] MEDS: HYDROmorphone 2 MG/ML VIAL 0.4 MG IVP ×2 (14:17→17:32)
[2021-03-23] MEDS: Lactobacillus Acidophilus CAP 1 CAP PO ×2 (14:19→20:15)
[2021-03-23] MEDS: Baclofen 10 MG TAB PO ×2 (14:19→20:15)
[2021-03-23] MEDS: busPIRone 5 MG TAB 10 MG PO ×2 (14:19→20:15)
[2021-03-23] MEDS: HYDROmorphone 2 MG/ML VIAL 0.5 MG IVP (15:39)
--- NOTE | 2021-03-23 16:45 | NUR.NOTE ---
Nursing Note: 03/23/21 16:54 Patient was transferred to ICU per provider orders at 13:25. Xtasp-[id number] handoff was done by this RN with SWETHA Traylor. Patient's belongings and bed were sent with patient to ICU 220.
--- NOTE | 2021-03-23 19:16 | CMPROGNOTE_ITS ---
- If Service Date Differs Date of service: 03/23/21 Time of Service: 19:16 Care Management Progress Note S/O: Favio was sleeping when CM attempted to meet with him. Per report, he had a difficult night, and today had an NG tube placed again, as it was pulled out this morning. There is concern that he may have aspirated, and he is now requiring O2. He was transferred to the ICU for closer monitoring. CM will continue to follow. A: Favio is a 55 year old man admitted to [facility] on 02/22/21 with obstipation P: Favio will likely continue to seek placement at a different facility with the help of his family. He will follow up with their provider's plan of care. Favio will transport via ambulance coordinated by CM. CM will continue to support Favio and his family and assess for ongoing discharge concerns.
[2021-03-23] MEDS: Midodrine 2.5 MG TAB PO (20:15)
[2021-03-23] MEDS: Ascorbic Acid 500 MG TAB PO (20:15)
[2021-03-23] MEDS: Enoxaparin 40 MG/0.4 ML SYR SC (21:20)
[2021-03-23] MEDS: Melatonin 3 MG TAB 6 MG PO (21:20)
[2021-03-23] MEDS: Zolpidem 10 MG TAB PO (21:21)
[2021-03-23] MEDS: Mirtazapine 15 MG TAB 30 MG PO (21:21)
[2021-03-24] VITALS (30 sets, daily range): BP systolic 101–150; BP diastolic 10–83; PULSE 61–138; RESP 11–23; TEMP 36.3–37.4; O2SAT 77–99
[2021-03-24] MEDS: Normal Saline 1,000 ML 80 ML IV (00:01)
[2021-03-24] MEDS: PIPERACILLIN/TAZO 3.375 GM in Normal Saline 50 ML IVPB ×5 (00:02→23:12)
[2021-03-24] MEDS: Metoclopramide 10 MG/2 ML VIAL IVP ×4 (02:01→21:06)
[2021-03-24] MEDS: ACETAMINOPHEN 1,000 MG/100 ML BTL 400 MG IVPB ×3 (02:02→17:14)
[2021-03-24] MEDS: Ketorolac 15 MG/ML VIAL IVP (04:08)
[2021-03-24] MEDS: Normal Saline Flush 10 ML SYR IVP ×4 (06:06→21:06)
[2021-03-24 06:49] LABS: Abs Immature Grans 0.04 10^3/uL (0.0-0.06); Absolute Basophil Count 0.03 10^3/uL (0.0-0.2); Absolute Lymphocyte Count 1.09 10^3/uL (1.2-3.4); Absolute Monocyte Count 0.47 10^3/uL (0.1-0.8); Absolute Neutrophil Count 4.72 10^3/uL (1.2-6.7); Basophils % 0.4; Eosinophils % 5.9; HCT 27.1 % (40.0-50.0); HGB 8.7 g/dL (13.5-17.5); Immature Grans % 0.6; Lymphocytes % 16.1; MCH 26.9 pg (27.0-33.0); MCHC 32.1 % (32.0-36.0); MCV 83.9 fL (80-95); Nucleated RBC 0 %; Platelet Count 314 10^3/uL (130-400); RBC 3.23 10^6/uL (4.36-5.78); RDW 14.2 % (11.8-14.1); RDW-SD 43.3 fL; WBC 6.75 10^3/uL (4.4-10.8)
[2021-03-24 06:57] LABS: BUN 18 mg/dL (7-18); CREATININE 0.7 mg/dL (0.70-1.30); Glucose 95 mg/dL (74-106); Magnesium 1.8 mg/dL (1.8-2.4)
[2021-03-24 07:18] LABS: Sodium 146 mmol/L (136-145)
[2021-03-24 07:23] LABS: CO2 24.8 mmol/L (21.0-32.0); Chloride 106 mmol/L (98-107); Potassium 3.1 mmol/L (3.5-5.1)
[2021-03-24 07:24] LABS: Anion Gap 15.2 mmol/L (3-11)
--- NOTE | 2021-03-24 08:00 | RT.EKG_ITS ---
APPROVED REPORT Exam: Resting ECG Reason for Exam: Medication monitoring Patient Location: I HR:75 bpm ECG Measurements Heart Rate 75 AXIS OK 167 P 78 QRSd 112 QRS 52 QT 424 T 81 QTc 474 Conclusion Sinus rhythm...normal P axis, V-rate 60- 99 Incomplete right bundle branch block...QRSd >112, terminal axis(90,270) Nonspecific T abnormalities, lateral leads...T <-0.10mV, I aVL V5 V6
[2021-03-24] MEDS: LORazepam 2 MG/ML VIAL 0.5 MG IV (08:27)
[2021-03-24] MEDS: HYDROmorphone 2 MG/ML VIAL 0.4 MG IVP (08:28)
[2021-03-24] MEDS: Normal Saline Flush 10 ML SYR 20 ML IVP ×2 (08:29→21:06)
--- NOTE | 2021-03-24 09:29 | PDOC.CMPRO ---
- If Service Date Differs Date of service: 03/24/21 Time of Service: 09:29 Care Management Progress Note S/O: Favio was sleeping when CM attempted to meet with him. Per report, he is not requiring O2 today. He is currently NPO with an NG tube in place and no bowel function at this time, per MD. Per report, he is feeling better and his belly is less tender today. He remains in the ICU today for close monitoring. CM will continue to follow. A: Favio is a 55 year old man admitted to [facility] on 02/22/21 with obstipation P: Favio will likely continue to seek placement at a different facility with the help of his family. He will follow up with their provider's plan of care. Favio will transport via ambulance coordinated by [facility]. CM will continue to support Favio and his family and assess for ongoing discharge concerns.
--- NOTE | 2021-03-24 09:31 | W.PM.PROGNOT ---
Date of Service Date of service: 03/24/21 Time of Service: 09:31 Assessment and Plan Assessment and plan (1) Neurogenic bowel: Status: Acute Assessment and plan: POD #4 s/p diverting colostomy Stoma is pink and patent. Abdomen is distended, (-) Bowel Sounds. Continue Reglan q 6 hours Switch as many medications to IV Stop bowel regimen medications until there is bowel function again (2) Constipation due to neurogenic bowel: Status: Acute (3) Acute osteomyelitis of sacrum: Status: Acute Assessment and plan: Continue antibiotics (4) Decubitus ulcer of buttock, stage 4: Status: Acute Qualifiers: Laterality: left Qualified Code(s): L89.324 - Pressure ulcer of left buttock, stage 4 (5) H/O deep venous thrombosis: Status: Chronic Assessment and plan: Continue Lovenox (6) Quadriplegia: Status: Chronic (7) UTI (urinary tract infection): Status: Acute Qualifiers: Urinary tract infection type: catheter-associated UTI Indwelling urinary catheter type: indwelling urethral catheter Encounter type: initial encounter Qualified Code(s): T83.511A - Infection and inflammatory reaction due to indwelling urethral catheter, initial encounter; N39.0 - Urinary tract infection, site not specified (8) Neurogenic bladder: Status: Chronic (9) Ileus: Status: Acute (10) Hx of caloric malnutrition: Status: Acute Assessment and plan: Patient is NPO again. No bowel function at this time Start TPN Subjective Subjective Interval history since last seen: Bruce is feeling a little better. His belly is not quite as tender. He complains mostly of shoulder pain. HIs NG tube is putting out brown fluid. Per nursing there is a small amount of soft stool in the ostomy bag Exam Const General: no acute distress Orientation: alert and oriented x3 HENMT Head: normocephalic and atraumatic Resp Effort & Inspection: normal respiratory effort Auscultation: clear to auscultation bilaterally and diminished lung sounds bilaterally in the lower lung kothari Cardio Rate: regular rate Rhythm: regular rhythm GI Inspection: distended Palpation: soft and tender (diffuse but decreased from yesterday) Auscultation: absent bowel sounds Other: Ostomy- edematous ostomy put viable. There is about 50 to 100 cc of soft stool in the bag. No air Objective Last Vital Signs Temp 97.7 F 03/24/21 08:25 Pulse 79 03/24/21 09:02 Resp 21 03/24/21 09:02 BP 141/75 H 03/24/21 09:02 Pulse Ox 97 03/24/21 09:02 Laboratory Results - last 24 hr 03/23/21 03/24/21 03/24/21 09:15 06:25 06:25 WBC 6.75 RBC 3.23 L Hgb 8.7 L Hct 27.1 L MCV 83.9 MCH 26.9 L MCHC 32.1 RDW 14.2 H Plt Count 314 MPV 10.0 Immature Gran % 0.6 Neutrophils % 70.0 Lymphocytes % 16.1 Monocytes % 7.0 Eosinophils % 5.9 Basophils % 0.4 Nucleated RBC % 0 Absolute Neutrophils 4.72 Absolute Lymphocytes 1.09 L Absolute Monocytes 0.47 Absolute Eosinophils 0.40 Absolute Basophils 0.03 Sodium 146 H Potassium 3.1 L Chloride 106 Carbon Dioxide 24.8 Anion Gap 15.2 H BUN 18 Creatinine 0.7 Estimated GFR/1.73 m2 >= 60.00 Glucose 95 Calcium 9.0 Magnesium 1.8 Vancomycin Trough 15.1
[2021-03-24] MEDS: Pantoprazole 40 MG VIAL IVP (10:07)
[2021-03-24] MEDS: HYDROmorphone 2 MG/ML VIAL IVP ×4 (10:08→23:28)
[2021-03-24] MEDS: Ketorolac 15 MG/ML VIAL 30 MG IVP ×3 (10:08→21:20)
[2021-03-24] MEDS: Midodrine 2.5 MG TAB PO ×2 (10:09→21:06)
[2021-03-24] MEDS: DULoxetine 30 MG CAP PO (10:09)
[2021-03-24] MEDS: busPIRone 5 MG TAB 10 MG PO ×3 (10:09→21:07)
[2021-03-24] MEDS: POTASSIUM CHLORIDE/D5-0.9%NACL 1,000 ML 80 MEQ IV (10:10)
[2021-03-24] MEDS: Normal Saline 500 ML IV (10:11)
[2021-03-24] MEDS: VANCOMYCIN/WATER (PEG) 1.25 GM/250 ML BAG IVPB ×2 (10:53→21:18)
[2021-03-24] MEDS: IRON SUCROSE COMPLEX 400 MG in Normal Saline 250 ML 108 MG IVPB (11:28)
--- NOTE | 2021-03-24 12:47 | W.PM.PROGNOT ---
Date of Service Date of service: 03/24/21 Time of Service: 12:47 Assessment and Plan Assessment and plan (1) Aspiration into airway: Status: Acute Assessment and plan: No apparent developing PNA On RA, lungs clear. (2) Ileus: Status: Acute Assessment and plan: Surgery following. Cont Entereg and Reglan (3) Neurogenic bowel: Status: Acute Assessment and plan: Chronic with complication of constipation. s/p diverting colostomy. Now on Entereg and Reglan. (4) Decubitus ulcer of buttock, stage 4: Status: Acute Assessment and plan: Wound care following; wound vac replacement today + osteomyelitis. On Zosyn and Vanc. Qualifiers: Laterality: left Qualified Code(s): L89.324 - Pressure ulcer of left buttock, stage 4 (5) Major depressive disorder: Status: Chronic Assessment and plan: Duloxetine and Buspar (6) Hx of caloric malnutrition: Status: Acute Assessment and plan: Now is NPO with NG in place. TPN initiated. 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 On midodrine. Subjective Subjective Patient reports: afebrile Interval history since last seen: NG tube to suction. No c/o abd pain currently. C/O chronic L shoulder pain especially with wound vac changes when he has to role onto his L side No gas noted in ostomy bag. Brown liquid stool of appx 100ml in bag. Exam Const General: cooperative and no acute distress Nutritional Appearance: average body habitus Orientation: alert and oriented x3 Resp Effort & Inspection: normal respiratory effort Auscultation: clear to auscultation bilaterally and diminished lung sounds Cardio Rate: regular rate Rhythm: regular rhythm Heart Sounds: S1 normal and S2 normal GI Inspection: distended Palpation: tender (diffusely) Auscultation: absent bowel sounds Extrem General: no calf tenderness and pedal edema (both feet) Psych Appearance: grossly normal Affect: blunted Objective Last Vital Signs Temp 36.5 C 03/24/21 08:25 Pulse 72 03/24/21 11:01 Resp 14 03/24/21 11:01 BP 116/61 03/24/21 11:01 Pulse Ox 97 03/24/21 11:01 Laboratory Results - last 24 hr 03/24/21 03/24/21 06:25 06:25 WBC 6.75 RBC 3.23 L Hgb 8.7 L Hct 27.1 L MCV 83.9 MCH 26.9 L MCHC 32.1 RDW 14.2 H Plt Count 314 MPV 10.0 Immature Gran % 0.6 Neutrophils % 70.0 Lymphocytes % 16.1 Monocytes % 7.0 Eosinophils % 5.9 Basophils % 0.4 Nucleated RBC % 0 Absolute Neutrophils 4.72 Absolute Lymphocytes 1.09 L Absolute Monocytes 0.47 Absolute Eosinophils 0.40 Absolute Basophils 0.03 Sodium 146 H Potassium 3.1 L Chloride 106 Carbon Dioxide 24.8 Anion Gap 15.2 H BUN 18 Creatinine 0.7 Estimated GFR/1.73 m2 >= 60.00 Glucose 95 Calcium 9.0 Magnesium 1.8
[2021-03-24] MEDS: LORazepam 2 MG/ML VIAL IV ×2 (14:03→18:34)
[2021-03-24] MEDS: Mirtazapine 15 MG TAB 30 MG PO (21:07)
[2021-03-24] MEDS: Enoxaparin 40 MG/0.4 ML SYR SC (21:19)
[2021-03-25] VITALS (43 sets, daily range): BP systolic 113–166; BP diastolic 61–93; PULSE 61–78; RESP 13–23; TEMP 36.6–37; O2SAT 93–99
[2021-03-25] MEDS: Ketorolac 15 MG/ML VIAL 30 MG IVP ×3 (03:30→17:42)
[2021-03-25] MEDS: Normal Saline Flush 10 ML SYR IVP ×10 (03:30→12:35)
[2021-03-25] MEDS: Metoclopramide 10 MG/2 ML VIAL IVP ×4 (03:31→20:07)
[2021-03-25] MEDS: PIPERACILLIN/TAZO 3.375 GM in Normal Saline 50 ML IVPB ×3 (05:57→17:58)
[2021-03-25 06:45] LABS: INR 1.1 (0.9-1.1); Prothrombin Time 10.9 sec (9.3-11.0)
--- NOTE | 2021-03-25 06:59 | PGE_ITS ---
Date of Service Date of service: 03/25/21 Time of Service: 06:59 Assessment and Plan Assessment and plan (1) Neurogenic bowel: Status: Acute Assessment and plan: POD #5 s/p diverting colostomy Stoma and patent. has some superficial necrosis. It is still edematous but less then yesterday. It is patent. Minimal stool noted Abdomen is distended. There are some BS today which is improved from yesterday Continue Reglan q 6 hours Switch as many medications to IV Stop bowel regimen medications until there is bowel function again (2) Constipation due to neurogenic bowel: Status: Acute (3) Acute osteomyelitis of sacrum: Status: Acute Assessment and plan: Continue antibiotics Cultures show sensitivity to vancomycin Wound Aerobic Culture Final 03/23/21-1218 Day 1 Result NO GROWTH 24 HOURS Day 2 Result ISOLATES BELOW DAY 2 GROWTH RARE GROWTH ISOLATE 1 APPEARANCE Gram Positive Wendy ISOLATE 1 ACTION IDENTIFICATION TO FOLLOW Day 3 Result ISOLATES BELOW DAY 3 GROWTH RARE GROWTH ISOLATE 1 APPEARANCE Gram Positive Wendy ISOLATE 1 ACTION IDENTIFICATION TO FOLLOW DAY 3 GROWTH RARE GROWTH ISOLATE 2 APPEARANCE Gram Positive Wendy ISOLATE 2 ACTION IDENTIFICATION TO FOLLOW Day 4 Result ISOLATES BELOW DAY 4 GROWTH RARE GROWTH ISOLATE 1 APPEARANCE Gram Positive Wendy DAY 4 GROWTH RARE GROWTH ISOLATE 2 APPEARANCE Gram Positive Wendy ISOLATE 2 ACTION IDENTIFICATION TO FOLLOW DAY 4 GROWTH RARE GROWTH ISOLATE 3 APPEARANCE Gram Negative Jerrell ISOLATE 3 ACTION ID AND SUSCEPTIBILITY TO FOLLOW BONE FROM LEFT ISCHIAL TUBEROSITY WOUND SEE ALSO RIMMA CULTURE [id number] Presumptive identification of Corynebacterium species based on gram stain and morphology. Organism 1 CORYNEBACTERIUM SPECIES GROWTH RARE GROWTH Organism 2 STAPHYLOCOCCUS AUREUS GROWTH RARE GROWTH Organism 3 Proteus mirabilis GROWTH RARE GROWTH Stap ramón Prot nu RESULT RESULT Ampicillin R Ampicillin/Sulbactam S Cefazolin S Ceftazidime S CEFTRIAXONE S Ciprofloxacin S R Gentamicin S S Tobramycin S Trimethoprim/Sulfamethoxazole S S Piperacillin/Tazobactam S Daptomycin S Erythromycin S Oxacillin S Vancomycin (4) Decubitus ulcer of buttock, stage 4: Status: Acute Assessment and plan: Wound vac changed yesterday. Per wound care nurse there is some granulation tissue and bone is no longer exposed Qualifiers: Laterality: left Qualified Code(s): L89.324 - Pressure ulcer of left buttock, stage 4 (5) H/O deep venous thrombosis: Status: Chronic Assessment and plan: Continue Lovenox (6) Quadriplegia: Status: Chronic (7) UTI (urinary tract infection): Status: Acute Assessment and plan: Cultures showed <10,000 colonies Qualifiers: Encounter type: initial encounter Indwelling urinary catheter type: indwelling urethral catheter Urinary tract infection type: catheter-associated UTI Qualified Code(s): T83.511A - Infection and inflammatory reaction due to indwelling urethral catheter, initial encounter; N39.0 - Urinary tract infection, site not specified (8) Neurogenic bladder: Status: Chronic Assessment and plan: suprapubic pereyra in place (9) Ileus: Status: Acute Assessment and plan: A few more BS then yesterday. NG output less like stool Still no air in the ostomy bag. Minimal stool (10) Hx of caloric malnutrition: Status: Acute Assessment and plan: Patient is NPO again. No bowel function at this time TPN started last night Subjective Subjective Interval history since last seen: Mr. bruce is sleeping comfortably this morning. The NG output is a little supervisor lead burning then yesterday. No fevers overnight Exam [facility] Head: normocephalic and atraumatic GI Inspection: distended Palpation: soft Auscultation: hyperactive bowel sounds Other: Ostomy with some superficial necrosis. Still edematous. Minimal stool in the bag. No air Abdomen image: 1. ostomy Objective Last Vital Signs Temp 98.6 F 03/25/21 03:49 Pulse 67 03/25/21 04:01 Resp 14 03/25/21 05:00 BP 119/66 03/25/21 04:01 Pulse Ox 98 03/25/21 05:00 Laboratory Results - last 24 hr 03/24/21 03/24/21 03/25/21 06:25 06:25 06:10 WBC 6.75 RBC 3.23 L Hgb 8.7 L Hct 27.1 L MCV 83.9 MCH 26.9 L MCHC 32.1 RDW 14.2 H Plt Count 314 MPV 10.0 Immature Gran % 0.6 Neutrophils % 70.0 Lymphocytes % 16.1 Monocytes % 7.0 Eosinophils % 5.9 Basophils % 0.4 Nucleated RBC % 0 Absolute Neutrophils 4.72 Absolute Lymphocytes 1.09 L Absolute Monocytes 0.47 Absolute Eosinophils 0.40 Absolute Basophils 0.03 PT 10.9 INR 1.1 Sodium 146 H Potassium 3.1 L Chloride 106 Carbon Dioxide 24.8 Anion Gap 15.2 H BUN 18 Creatinine 0.7 Estimated GFR/1.73 m2 >= 60.00 Glucose 95 Calcium 9.0 Magnesium 1.8
[2021-03-25 07:02] LABS: ALT 29 U/L (16-63); AST 19 U/L (15-37); Albumin 2.4 g/dL (3.4-5.0); Alkaline Phosphatase 65 U/L (46-116); Anion Gap 8.5 mmol/L (3-11); BUN 17 mg/dL (7-18); Bilirubin, Total 0.2 mg/dL (0.2-1.0); CO2 28.5 mmol/L (21.0-32.0); CREATININE 0.8 mg/dL (0.70-1.30); Chloride 110 mmol/L (98-107); Glucose 123 mg/dL (74-106); Magnesium 1.7 mg/dL (1.8-2.4); PHOSPHORUS 2.6 mg/dL (2.6-4.7); Sodium 147 mmol/L (136-145); Total Protein 6.2 g/dL (6.4-8.2)
[2021-03-25 07:06] LABS: Potassium 2.7 mmol/L (3.5-5.1)
--- NOTE | 2021-03-25 08:28 | W.PALPGNOTE ---
Date of service: 03/25/21 Time of Service: 08:28 Assessment and Plan Assessment and plan (1) Aspiration into airway: Status: Acute (2) Ileus: Status: Acute (3) S/P colostomy: Status: Acute (4) Palliative care patient: Status: Acute Assessment and plan: Low potassium?he will need replenishment of his potassium. With it being 2.7 I would recommend that he get IV potassium first and then add it to his TPN Nursing was inquiring as to whether his meds could be crushed and put on the NG tube, obviously turning off the suction for a while. Considering he had aspiration I think that that seems like it good idea He still has put out 600 mL into his NG tube. Doubtful that he will be able to discontinue that today. He still is having spasms. His baclofen helped quite a bit with changing it. I would recommend going up to baclofen 10 mg p.o. 4 times daily. I will continue to follow Favio. Subjective Subjective Interval history since last seen: Favio feels that he is doing better than he was a few days ago. There was some concern about aspiration. He has an ileus after his operation to insert a colostomy. He now has a NG tube in. It is still draining considerable amounts?by last account 600 mL and it was brown. Staff states that his wound VAC is working well. 1 is draining 75 mL of the other none. Favio states that he still is having a lot of twitching. We talked about increasing the baclofen As always he was very polite and courteous. I had heard from staff that the number of problems that were happening were frustrating for him. Exam Narrative Exam Narrative: Favio is laying in bed. He has multiple twitching of upper extremities during our conversation. He wanted to keep his hands under the covers. His heart is regular. Lungs decreased airflow but I did not detect any rales His abdomen is distended but not firm. His colostomy stump looks much better than it did the other day Objective Last Vital Signs Temp 98.4 F 03/25/21 08:26 Pulse 71 03/25/21 08:26 Resp 15 03/25/21 08:26 BP 121/75 03/25/21 08:26 Pulse Ox 96 03/25/21 08:26 Laboratory Results - last 24 hr 03/25/21 03/25/21 06:10 06:10 PT 10.9 INR 1.1 Sodium 147 H Potassium 2.7 L* Chloride 110 H Carbon Dioxide 28.5 Anion Gap 8.5 BUN 17 Creatinine 0.8 Estimated GFR/1.73 m2 >= 60.00 Glucose 123 H Calcium 9.0 Phosphorus 2.6 Magnesium 1.7 L Total Bilirubin 0.2 AST 19 ALT 29 Alkaline Phosphatase 65 Total Protein 6.2 L Albumin 2.4 L
--- NOTE | 2021-03-25 08:28 | NUR.NOTE ---
RN flushes triple lumen picc line. Good blood return in red and patel port. White port flushes well. RN will attempt further flushing of white port to obtain blood flow.
--- NOTE | 2021-03-25 08:31 | NUR.NOTE ---
NG tube suction is turned off to give PO medications.Nursing Note:
--- NOTE | 2021-03-25 08:37 | RESPIRATORY ---
Nursing informed RT of patient having weak cough. RT approached patient regarding possibility of obtaining cough assist device. Patient stated that knew of the device, but did not want one.
[2021-03-25] MEDS: busPIRone 5 MG TAB 10 MG PO ×3 (08:41→20:06)
[2021-03-25] MEDS: DULoxetine 30 MG CAP PO (08:41)
[2021-03-25] MEDS: Midodrine 2.5 MG TAB PO ×2 (08:42→20:06)
--- NOTE | 2021-03-25 08:44 | NUR.NOTE ---
Rn consults with patient to see if he would rather take his medication by mouth or down the NG tube. Patient would like to take his medications by mouth.
[2021-03-25] MEDS: Pantoprazole 40 MG VIAL IVP (08:52)
[2021-03-25] MEDS: Normal Saline Flush 10 ML SYR 20 ML IVP ×2 (08:54→20:08)
[2021-03-25] MEDS: POTASSIUM CHLORIDE 10 MEQ/100 ML BAG 100 MEQ IVPB ×2 (09:20→10:18)
--- NOTE | 2021-03-25 09:59 | W.NUTCONSULT ---
Date of service: 03/25/21 Time of Service: 09:59 Nutritional Consult ASSESSMENT: Ron developed ileus s/p colostomy with aspiration PNA with stage 4 sacral pressure wound with osteomylitis. PMH: neurgenic bowel/bladder, quadriplegia. Weight has been stable since admission on 02/20/21. BMI wnl. Estimated Needs: [id number] kcal, 120 g pro. Elevated nutrient requirements due to increased need for optimal wound healing and weight stability. TPN initiated 03/24/21: D10/AA 4.25 2000 ml with 500 ml 20% lipids providing total of 1520 kcal, 82 g protein. Recommend adjusting TPN macronutrients to meet increased protein and calorie needs. NUTRITIONAL DIAGNOSIS: increased nutrient needs due to stage 4 sacral pressure wounds Malnutrition in view of depleted visceral protein stores and inability to consume adequate calories for wound healing INTERVENTION: Recommend adjusting TPN to following: D15/AA 5% 85.9 ml/hour 20% lipids 31.5 mg/hour providing total of 2000 kcal, 100 grams protein MVI, trace elements adjust electrolytes as needed monitor CMP/CBC, Mg, Phos, daily glucose - twice daily triglycerides- weekly prealbumin- weekly MONITORING AND EVALUATION: If consumes NPO for > 3 days, will adjust TPN further to meet increased kcal/pro needs. Time Spent in Nutritional Counseling and Treatment: 10
[2021-03-25] MEDS: POTASSIUM CHLORIDE/D5-0.45NACL 1,000 ML 50 MEQ IV (10:21)
[2021-03-25] MEDS: VANCOMYCIN/WATER (PEG) 1.25 GM/250 ML BAG IVPB ×2 (10:33→21:50)
--- NOTE | 2021-03-25 12:54 | NUR.NOTE ---
Patient asks for his hand braces to be applied. RN applies same. Patient suddenly more agreeable and appreciative. Patient did speak at length with a family member on the telephone.
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
--- NOTE | 2021-03-25 13:48 | NUR.NOTE ---
Nasogastric nose piece is changed out. Face is cleaned and then new nose piece is applied.
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
--- NOTE | 2021-03-25 14:18 | NUR.NOTE ---
New container for gastric fluids hanged.Nursing Note:
--- NOTE | 2021-03-25 14:19 | NUR.NOTE ---
Patient's mother, Jennifer visits.Nursing Note:
--- NOTE | 2021-03-25 17:17 | CMPROGNOTE_ITS ---
- If Service Date Differs Date of service: 03/25/21 Time of Service: 17:17 Care Management Progress Note S/O: Favio was sitting up in bed when CM met with him. He reported that this weekend was a long one. Nicki was on the phone during the visit. They both asked about the possibility of Favio going to a facility with a hyperbaric chamber. CM expressed that facilities are being contacted, and the providers are inquiring about a possible transfer to a tertiary facility with the wound care necessary for his recovery. CM will continue to follow. A: Favio is a 55 year old man admitted to [facility] on 02/22/21 with obstipation P: Favio will likely continue to seek placement at a different facility with the help of his family. He will follow up with their provider's plan of care. Favio will transport via ambulance coordinated by [facility]. CM will continue to support Favio and his family and assess for ongoing discharge concerns.
[2021-03-25] MEDS: Mirtazapine 15 MG TAB 30 MG PO (21:49)
[2021-03-25] MEDS: Enoxaparin 40 MG/0.4 ML SYR SC (21:49)
[2021-03-26] VITALS (30 sets, daily range): BP systolic 122–170; BP diastolic 71–124; PULSE 59–89; RESP 11–30; TEMP 36.7; O2SAT 97–99
[2021-03-26] MEDS: PIPERACILLIN/TAZO 3.375 GM in Normal Saline 50 ML IVPB ×4 (00:07→18:12)
[2021-03-26] MEDS: Metoclopramide 10 MG/2 ML VIAL IVP ×4 (02:19→19:28)
[2021-03-26 07:08] LABS: Magnesium 1.6 mg/dL (1.8-2.4); PHOSPHORUS 2.4 mg/dL (2.6-4.7)
--- NOTE | 2021-03-26 08:24 | PGE_ITS ---
Date of Service Date of service: 03/26/21 Time of Service: 08:24 Assessment and Plan Assessment and plan (1) Neurogenic bowel: Status: Acute Assessment and plan: POD #6 s/p diverting colostomy Stoma and patent. has some superficial necrosis. It is still edematous but less then yesterday. It is patent. Minimal stool noted and air Abdomen is distended. There are some BS today which is improved from yesterday Continue Reglan q 6 hours Switch as many medications to IV Stop bowel regimen medications until there is bowel function again (2) Constipation due to neurogenic bowel: Status: Acute (3) Acute osteomyelitis of sacrum: Status: Acute Assessment and plan: Continue antibiotics Cultures show sensitivity to vancomycin Antibiotics per Hospitalist team (4) Decubitus ulcer of buttock, stage 4: Status: Acute Assessment and plan: Wound vac changed yesterday. Per wound care nurse t here is some granulation tissue and bone is no longer exposed Qualifiers: Laterality: left Qualified Code(s): L89.324 - Pressure ulcer of left buttock, stage 4 (5) H/O deep venous thrombosis: Status: Chronic Assessment and plan: Continue Lovenox (6) Quadriplegia: Status: Chronic (7) UTI (urinary tract infection): Status: Acute Assessment and plan: Cultures showed <10,000 colonies Qualifiers: Urinary tract infection type: catheter-associated UTI Indwelling urinary catheter type: indwelling urethral catheter Encounter type: initial encounter Qualified Code(s): T83.511A - Infection and inflammatory reaction due to indwelling urethral catheter, initial encounter; N39.0 - Urinary tract infection, site not specified (8) Neurogenic bladder: Status: Chronic Assessment and plan: suprapubic pereyra in place (9) Ileus: Status: Acute Assessment and plan: A few more BS then yesterday. NG output less like stool Still no air in the ostomy bag. Minimal stool (10) Hx of caloric malnutrition: Status: Acute Assessment and plan: Patient is NPO again. No bowel function at this time TPN started last night Subjective Subjective Interval history since last seen: Bruce is doing OK. The NG output is a little more clear. NO new issues overnight Exam Const General: comfortable and no acute distress Orientation: alert and oriented x3 GI Inspection: distended Palpation: soft Auscultation: hypoactive bowel sounds Objective Last Vital Signs Temp 98.0 F 03/26/21 07:35 Pulse 73 03/26/21 07:35 Resp 19 03/26/21 07:35 BP 134/77 03/26/21 07:35 Pulse Ox 99 03/26/21 07:35 Laboratory Results - last 24 hr 03/26/21 06:24 Phosphorus 2.4 L Magnesium 1.6 L
[2021-03-26] MEDS: POTASSIUM CHLORIDE/D5-0.45NACL 1,000 ML 50 MEQ IV (09:05)
[2021-03-26 09:06] LABS: Anion Gap 8.4 mmol/L (3-11); BUN 20 mg/dL (7-18); CO2 27.6 mmol/L (21.0-32.0); CREATININE 0.6 mg/dL (0.70-1.30); Chloride 109 mmol/L (98-107); Glucose 127 mg/dL (74-106); Sodium 145 mmol/L (136-145)
[2021-03-26 09:08] LABS: Potassium 2.9 mmol/L (3.5-5.1)
[2021-03-26 09:19] LABS: Abs Immature Grans 0.04 10^3/uL (0.0-0.06); Absolute Basophil Count 0.02 10^3/uL (0.0-0.2); Absolute Eosinophil Count 0.32 10^3/uL (0.0-0.7); Absolute Lymphocyte Count 1.22 10^3/uL (1.2-3.4); Absolute Monocyte Count 0.68 10^3/uL (0.1-0.8); Absolute Neutrophil Count 5.59 10^3/uL (1.2-6.7); Basophils % 0.3; Eosinophils % 4.1; HGB 8.8 g/dL (13.5-17.5); Immature Grans % 0.5; Lymphocytes % 15.5; MCH 26.5 pg (27.0-33.0); MCHC 31.4 % (32.0-36.0); MCV 84.3 fL (80-95); MPV 10.2 fL (8.0-11.0); Monocytes % 8.6; Nucleated RBC 0 %; Platelet Count 379 10^3/uL (130-400); RBC 3.32 10^6/uL (4.36-5.78); RDW 14.6 % (11.8-14.1); RDW-SD 44.4 fL; WBC 7.87 10^3/uL (4.4-10.8)
--- NOTE | 2021-03-26 09:21 | PDOC.CMPRO ---
- If Service Date Differs Date of service: 03/26/21 Time of Service: 09:21 Care Management Progress Note S/O: Favio was lying in bed when CM met with him. He appeared sad and spoke in a low voice. Favio admitted that he is having a hard time. The stoma on his colostomy has some necrotic areas and he still has pain with movement in his shoulders. CM did discuss the fact that Favio's decubitus ulcers appear to be granulating and that bone is no longer exposed, indicating that some healing is taking place. Favio acknowledged that that is good news and shared the fact that Nicki has hired an employee benefits attorney, also good news. A: Favio is a 55 year old man admitted to [facility] on 02/22/21 with obstipation. He is now being treated for osteomyelitis of the sacrum and has had a colostomy. P: Favio will likely continue to seek placement at a different facility with the help of his family. He will follow up with their provider's plan of care. Favio will transport via ambulance coordinated by [facility]. CM will continue to support Favio and his family and assess for ongoing discharge concerns.
[2021-03-26] MEDS: IRON SUCROSE COMPLEX 200 MG in Normal Saline 100 ML 440 MG IVPB (09:33)
[2021-03-26] MEDS: Normal Saline Flush 10 ML SYR IVP (09:33)
[2021-03-26] MEDS: busPIRone 5 MG TAB 10 MG PO ×2 (09:35→14:24)
[2021-03-26] MEDS: Normal Saline Flush 10 ML SYR 20 ML IVP ×2 (09:35→19:28)
[2021-03-26] MEDS: Midodrine 2.5 MG TAB PO (09:35)
[2021-03-26] MEDS: DULoxetine 30 MG CAP PO (09:35)
[2021-03-26] MEDS: Pantoprazole 40 MG VIAL IVP (09:35)
[2021-03-26 09:50] LABS: Vancomycin, Trough 13.5 ug/mL (10.0-20.0)
[2021-03-26] MEDS: VANCOMYCIN/WATER (PEG) 1.25 GM/250 ML BAG IVPB ×2 (10:20→21:41)
--- NOTE | 2021-03-26 11:20 | W.PM.PROGNOT ---
Date of Service Date of service: 03/26/21 Time of Service: 11:20 Assessment and Plan Assessment and plan (1) Hypokalemia: Status: Acute Assessment and plan: Will give IV boluses and increase rate of D51/2NS with 40meq Kcl. Monitor (2) Ileus: Status: Acute Assessment and plan: Slowly resolving. Some gas in ostomy bag and hypoactive bowel sounds today. Cont NG to suction per surgery. Holding most po meds. (3) Acute osteomyelitis of sacrum: Status: Acute Assessment and plan: Cont IV tx. Will reach out to [facility] once bowel issue improves; would possibly benefit from hyperbariatric O2 tx that would be available there. (4) Major depressive disorder: Status: Chronic Assessment and plan: Cont Duloxetine and Buspar (5) Hx of caloric malnutrition: Status: Acute Assessment and plan: Now on TPN Waiting for bowel activity to return before resuming oral intake. Subjective Subjective Patient reports: no new complaints and afebrile; denies diarrhea, nausea, vomiting and shortness of breath Interval history since last seen: He feels slightly better overall. Exam Const General: cooperative and no acute distress Nutritional Appearance: average body habitus Orientation: oriented x3 Resp Effort & Inspection: normal respiratory effort Auscultation: clear to auscultation bilaterally Cardio Rate: regular rate Rhythm: regular rhythm Heart Sounds: S1 normal and S2 normal GI Inspection: distended Palpation: tender (mild, diffuse) and other (liquid stool in ostomy bag) Auscultation: hypoactive bowel sounds Skin General skin exam: no rashes or lesions noted Psych Speech and Movement: speech clear Affect: blunted Objective Last Vital Signs Temp 36.7 C 03/26/21 07:35 Pulse 73 03/26/21 08:01 Resp 20 03/26/21 10:00 BP 142/85 H 03/26/21 08:01 Pulse Ox 98 03/26/21 08:01 Laboratory Results - last 24 hr 03/26/21 03/26/21 03/26/21 06:24 06:24 09:20 WBC 7.87 RBC 3.32 L Hgb 8.8 L Hct 28.0 L MCV 84.3 MCH 26.5 L MCHC 31.4 L RDW 14.6 H Plt Count 379 MPV 10.2 Immature Gran % 0.5 Neutrophils % 71.0 Lymphocytes % 15.5 Monocytes % 8.6 Eosinophils % 4.1 Basophils % 0.3 Nucleated RBC % 0 Absolute Neutrophils 5.59 Absolute Lymphocytes 1.22 Absolute Monocytes 0.68 Absolute Eosinophils 0.32 Absolute Basophils 0.02 Sodium 145 Potassium 2.9 L Chloride 109 H Carbon Dioxide 27.6 Anion Gap 8.4 BUN 20 H Creatinine 0.6 L Estimated GFR/1.73 m2 >= 60.00 Glucose 127 H Calcium 9.0 Phosphorus 2.4 L Magnesium 1.6 L Vancomycin Trough 13.5
[2021-03-26] MEDS: Insulin Aspart 300 UNITS/3 ML PEN SC ×2 (13:05→18:09)
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
--- NOTE | 2021-03-26 14:40 | CHAPLAIN ---
Favio told me he's been here five weeks. He was tearful while we were talking today. He said he's angry at God and not talking to God any more. When I asked what's been helpful to him getting through this, and he said he wasn't sure, but that his family has been helpful, his mom visits every day. He also said he likes listening to his music. Favio is always thoughtful and asks how others are doing. He speaks to a counselor by phone once a week and seems to value this time. He has her cell phone so he can call at other times as well if needed.
[2021-03-26] MEDS: MAGNESIUM SULFATE 2 GM/50 ML BAG IVPB (16:06)
[2021-03-26] MEDS: POTASSIUM CHLORIDE 10 MEQ/100 ML BAG 100 MEQ IVPB ×3 (16:08→18:55)
[2021-03-26] MEDS: HYDROmorphone 2 MG/ML VIAL IVP ×2 (16:46→20:07)
--- NOTE | 2021-03-26 18:16 | WOUNDCONS_ITS ---
- If Service Date Differs Date of service: 03/26/21 Time of Service: 18:16 Wound Initial Evaluation Narrative: Weekly wound care re-evaluation done at bedside with Favio. He consents to photography verbally, Pt quadriplegic and unable to sign consent. Both wound bed appearances vastly improved in the last 7 days (see last consult for previous photos for comparison). Last I added collagen (promogran rosa) to wound bed, has made a great difference. Along with Pt being on abx to treat osteomyelitis. Left Ishial tuberosity no longer has bone exposed, new epithelial tissue noted where bone was visible last week at center of base, bone still palpable. minimal slough remains, approximately 10%. Granulation tissue noted throughout wound. Wound is tunneling 4.5 cm approximately 11-2 o'clock. I do not think black foam is reaching area, so 1 piece of white foam was added this time to area. Shear appears to be a problem. Recommend keeping HOB < 30 degrees when possible. Right side also has significant new epithelial tissue and granulation tissue present. It's difficult to tell from the photos but there is a dime sized circular white adherent area of slough on center of wound bed, bone is palpable, directly underneath slough area. recommend continuing current treatment plan as there has been forward progress. Current orders: Wound vac changes on , , THU- Cleanse bilateral ishial tuberosity wounds with anasept cleanser and gauze, Skin prep to periwound. Add promogran rosa (1 package to each wound) to wound beds with wound vac dressing changes. Ensure bone on bilateral wound bases is covered with contact layer (Adaptic) prior to black foam placement during dressing changes. - Wound Left Ishial tuberosity Wound Type: Pressure Ulcer Pressure Ulcer Stage: IV Wound General Appearance: Unapproximated, Muscle Visible, Bone Visible (pa lpable), Healing Well Wound Bed Greatest Portion: Red (Granulation) Wound Bed Lesser Portion: Yellow (Slough) Percent of Wound Bed Granulated/Red: 90 Percent of Wound Bed Slough/Yellow: 10 Wound Length: 4.5 cm Wound Width: 5 cm Wound Depth: 2.8 cm (4.5cm tunnel from 11-2 o'clock) Wound Drainage Amount: Moderate Wound Drainage Description: Bloody Right Ishial Tuberosity Wound Type: Pressure Ulcer Pressure Ulcer Stage: IV Wound General Appearance: Unapproximated, Muscle Visible, Bone Visible (palpable), Healing Well Wound Bed Greatest Portion: Red (Granulation) Wound Bed Lesser Portion: Yellow (Slough) Percent of Wound Bed Granulated/Red: 80 Percent of Wound Bed Slough/Yellow: 20 Wound Length: 2.9 cm Wound Width: 3.4 cm Wound Depth: 3.5 cm (4.5 cm tunnel @ 11 o'clock. 1.2 cm undermining from 11-2 oclock. ) Wound Drainage Amount: Minimal Wound Drainage Description: Bloody - Pain Pain Level: 0 (no pain @ wound sites) - Recomendation Physcian/Nurse Practioner Notified: Yes (Dr. Pedersen) Treatment Time - Patient Will be Seen Weekly Treatment: 1x/wk (on Tuesdays)
[2021-03-26] MEDS: ACETAMINOPHEN 1,000 MG/100 ML BTL 400 MG IVPB (18:48)
[2021-03-26] MEDS: Mirtazapine 15 MG TAB 30 MG PO (21:40)
[2021-03-26] MEDS: Zolpidem 10 MG TAB PO (21:40)
[2021-03-26] MEDS: Enoxaparin 40 MG/0.4 ML SYR SC (21:50)
[2021-03-27] VITALS (14 sets, daily range): BP systolic 119–170; BP diastolic 62–107; PULSE 68–84; RESP 12–20; TEMP 36.3–36.9; O2SAT 91–99
[2021-03-27] MEDS: PIPERACILLIN/TAZO 3.375 GM in Normal Saline 50 ML IVPB ×4 (00:50→17:56)
[2021-03-27] MEDS: Metoclopramide 10 MG/2 ML VIAL IVP ×4 (01:37→20:43)
[2021-03-27] MEDS: POTASSIUM CHLORIDE/D5-0.45NACL 1,000 ML 80 MEQ IV (02:30)
[2021-03-27 07:05] LABS: Abs Immature Grans 0.07 10^3/uL (0.0-0.06); Absolute Basophil Count 0.02 10^3/uL (0.0-0.2); Absolute Eosinophil Count 0.37 10^3/uL (0.0-0.7); Absolute Lymphocyte Count 1.39 10^3/uL (1.2-3.4); Absolute Neutrophil Count 6.25 10^3/uL (1.2-6.7); Basophils % 0.2; Eosinophils % 4.3; HCT 25.5 % (40.0-50.0); HGB 9.4 g/dL (13.5-17.5); Immature Grans % 0.8; MCH 32.5 pg (27.0-33.0); MCHC 36.9 % (32.0-36.0); MCV 88.2 fL (80-95); Monocytes % 6.9; Neutrophils % 71.8; Nucleated RBC 0 %; Platelet Count 246 10^3/uL (130-400); RBC 2.89 10^6/uL (4.36-5.78); RDW 19.7 % (11.8-14.1)
[2021-03-27 07:19] LABS: Anion Gap 9.8 mmol/L (3-11); BUN 19 mg/dL (7-18); CO2 25.2 mmol/L (21.0-32.0); CREATININE 0.6 mg/dL (0.70-1.30); Calcium 8.9 mg/dL (8.5-10.1); Chloride 108 mmol/L (98-107); Glucose 104 mg/dL (74-106); Potassium 3.7 mmol/L (3.5-5.1); Sodium 143 mmol/L (136-145)
[2021-03-27 07:38] LABS: Magnesium 1.9 mg/dL (1.8-2.4); PHOSPHORUS 2.2 mg/dL (2.6-4.7)
[2021-03-27] MEDS: DULoxetine 30 MG CAP PO (08:15)
[2021-03-27] MEDS: Pantoprazole 40 MG VIAL IVP (08:15)
[2021-03-27] MEDS: Normal Saline Flush 10 ML SYR IVP ×4 (08:16→22:02)
[2021-03-27] MEDS: Normal Saline Flush 10 ML SYR 20 ML IVP ×2 (08:17→20:43)
--- NOTE | 2021-03-27 08:25 | W.PM.PROGNOT ---
Documented by User: KAN Da Silva 03/27/21 08:33 Date of Service Date of service: 03/27/21 Time of Service: 08:25 Assessment and Plan Assessment and plan (1) Neurogenic bowel: Status: Acute Assessment and plan: POD #7 s/p diverting colostomy Stoma: Superficial necrosis is noted. It is still edematous.. It is patent. Minimal stool noted and air Abdomen continues to be distended. Hypoactive bowel sounds. Continue Reglan q 6 hours Stop bowel regimen medications until there is bowel function again (2) Constipation due to neurogenic bowel: Status: Acute (3) Acute osteomyelitis of sacrum: Status: Acute Assessment and plan: Continue antibiotics Cultures show sensitivity to vancomycin Antibiotics per Hospitalist team (4) Decubitus ulcer of buttock, stage 4: Status: Acute Assessment and plan: Wound vac changed yesterday. Per wound care nurse there is some granulation tissue and bone is no longer exposed Qualifiers: Laterality: left Qualified Code(s): L89.324 - Pressure ulcer of left buttock, stage 4 (5) H/O deep venous thrombosis: Status: Chronic Assessment and plan: Continue Lovenox (6) Quadriplegia: Status: Chronic (7) UTI (urinary tract infection): Status: Acute Assessment and plan: Cultures showed <10,000 colonies Qualifiers: Encounter type: initial encounter Indwelling urinary catheter type: indwelling urethral catheter Urinary tract infection type: catheter-associated UTI Qualified Code(s): T83.511A - Infection and inflammatory reaction due to indwelling urethral catheter, initial encounter; N39.0 - Urinary tract infection, site not specified (8) Neurogenic bladder: Status: Chronic Assessment and plan: suprapubic pereyra in place Decreased urine output over the past 2 days, will increase IV fluids. (9) Ileus: Status: Acute Assessment and plan: Hypoactive bowel sounds. NG output less like stool Still no air in the ostomy bag. Minimal stool (10) Hx of caloric malnutrition: Status: Acute Assessment and plan: Patient is NPO again. No bowel function at this time Conitnue TPN Subjective Subjective Interval history since last seen: Favio states he is doing Okay. He expresses his abdomen is uncomfortable. Exam Const General: cooperative and comfortable Orientation: alert and oriented x3 Resp Effort & Inspection: normal respiratory effort, no audible wheezes and no cough GI Inspection: distended Palpation: firm, no guarding and nontender Percussion: tympanic to percussion Auscultation: hypoactive bowel sounds Other: Colostomy- Necrotic tissue noted on the stoma from the 8 o'clock position to the 11 o'clock position. Some of this tissue is sloughing off. Remainder of the stoma is pink. Some brown liquid noted in the ostomy bag. Objective Last Vital Signs Temp 36.7 C 03/26/21 07:35 Pulse 73 03/27/21 04:01 Resp 20 03/27/21 04:01 BP 147/102 H 03/27/21 04:01 Pulse Ox 98 03/26/21 08:01 Laboratory Results - last 24 hr 03/26/21 03/26/21 03/26/21 06:24 06:24 09:20 WBC 7.87 RBC 3.32 L Hgb 8.8 L Hct 28.0 L MCV 84.3 MCH 26.5 L MCHC 31.4 L RDW 14.6 H Plt Count 379 MPV 10.2 Immature Gran % 0.5 Neutrophils % 71.0 Lymphocytes % 15.5 Monocytes % 8.6 Eosinophils % 4.1 Basophils % 0.3 Nucleated RBC % 0 Absolute Neutrophils 5.59 Absolute Lymphocytes 1.22 Absolute Monocytes 0.68 Absolute Eosinophils 0.32 Absolute Basophils 0.02 Sodium 145 Potassium 2.9 L Chloride 109 H Carbon Dioxide 27.6 Anion Gap 8.4 BUN 20 H Creatinine 0.6 L Estimated GFR/1.73 m2 >= 60.00 Glucose 127 H Calcium 9.0 Phosphorus 2.4 L Magnesium 1.6 L Vancomycin Trough 13.5 03/27/21 03/27/21 03/27/21 06:25 06:25 06:25 WBC 8.70 RBC 2.89 L Hgb 9.4 L Hct 25.5 L MCV 88.2 MCH 32.5 MCHC 36.9 H RDW 19.7 H Plt Count 246 D MPV 10.0 Immature Gran % 0.8 Neutrophils % 71.8 Lymphocytes % 16.0 Monocytes % 6.9 Eosinophils % 4.3 Basophils % 0.2 Nucleated RBC % 0 Absolute Neutrophils 6.25 Absolute Lymphocytes 1.39 Absolute Monocytes 0.60 Absolute Eosinophils 0.37 Absolute Basophils 0.02 Sodium 143 Potassium 3.7 D Chloride 108 H Carbon Dioxide 25.2 Anion Gap 9.8 BUN 19 H Creatinine 0.6 L Estimated GFR/1.73 m2 >= 60.00 Glucose 104 Calcium 8.9 Phosphorus 2.2 L Magnesium 1.9 Vancomycin Trough Documented by User: Wale Calderon MD 03/28/21 20:34
--- NOTE | 2021-03-27 10:09 | PDOC.CMPRO ---
- If Service Date Differs Date of service: 03/27/21 Time of Service: 10:09 Care Management Progress Note S/O: Favio was lying in bed in the ICU when CM met with him. He admitted that he was not doing well today. When asked what was wrong he shared that he had had a negative interaction with his nurse. He verbalized that he is in a lot of discomfort as his shoulders are really aching and the tylenol he was given did not seem to help. Favio asked when he might be able to move out to Med-Surg. He informed CM that he felt the staff there knows him much better and is patient and understanding about his needs. A short time later, after discharges occurred, Favio was able to move to the Med-Surg unit and when CM visited with him there, he shared that he was much more comfortable, physically and mentally. A: Favio is a 55 year old man admitted to [facility] on 02/22/21 with obstipation. He is now being treated for osteomyelitis of the sacrum and has had a colostomy. P: Favio will likely continue to seek placement at a different facility with the help of his family. He will follow up with their provider's plan of care. Favio will transport via ambulance coordinated by CM. CM will continue to support Favio and his family and assess for ongoing discharge concerns. cc:
[2021-03-27] MEDS: VANCOMYCIN/WATER (PEG) 1.25 GM/250 ML BAG IVPB ×2 (10:23→22:25)
[2021-03-27] MEDS: ACETAMINOPHEN 1,000 MG/100 ML BTL 400 MG IVPB (11:48)
--- NOTE | 2021-03-27 11:58 | OTIE_ITS ---
Occupational Therapy Notes Inpatient Occupational Therapy Evaluation Date: 03/27/21 Referring Doctor: Eliane Tolliver NP OT Orders: Non-Urgent Precautions: Full, Fall, Standard PATIENT PROFILE/ADMITTING DIAGNOSIS: Pt is a 55 year old male who presented to the ED from SNF for the following dx of major depressive disorder, quaridplegia, UTI, decubitus skin ulcers, constipation, and neurogenic bladder. He is re- evaluated at todays session under acute level of care in the ICU due to a recent dx of acute osteomyelitis of the sacrum, osteotomy, NG tube. Past Medical History: Medical History (Updated 02/20/21 @ 22:10 by Lauri Larry MD) Acute embolism and thrombosis of deep vein of right lower extremity Anxiety disorder C. difficile colitis Dislocation of C6/C7 cervical vertebrae Fall down embankment Fusion of spine Hypotension Major depressive disorder Neurogenic bladder Quadriplegia Social History/Home Situation: Pt oreviously residing at SNF where his DME needs are met. He is functionally requiring what he reports as Max (A) for everything. He can perform his eating routines although notes that its a mess for him and he gets everything all over him. He would like to have better function of his (B) UE. His hands are currently in a contracted position which is bothersome to him. Equipment owned/DME: DME needs met by SNF SUBJECTIVE:? Pt was lying in bed when OT arrived, he is agreeable to OT session and states that he is discouraged and depressed still but he is hopeful that his wounds are improving. He notes to OT that he is supposed to be transitioned out of the ICU and he is looking forward to this. OBJECTIVE: General Observation: Pleasant and appropriate, IV (R) UE connected, pereyra in place, ulcers present in lower back, feet propped in bed for comfort and pain, pain in shoulders, colostomy, NG tube Mental Status: A&Ox3 Pain: pain in digits in the extended position specifically IF/thumbs ROM: RUE shoulder flexion minimal, elbow WFL, wrist extension is fair, digits in contracted position L UE shoulder flexion minimal, elbow WFL, wrist extension is fair, digits in contracted position STRENGTH: RUE Crime Scene Evidence Technician strength is weak unable to fully grasp digits LUE Crime Scene Evidence Technician strength is weak unable to fully grasp digits SENSATION: decreased sensation in (B) Manual Therapy [id number]:? OT performed IASTM with down regulation and PROM to pts digits into flexion and extension which pt was able to tolerate with decreased tone and minimal pain. OT perform AP mobs to pts digits to facilitate an increased functional use of his (B) hands to be more (I) in his ADL/IADL Routines. His (L) DIP/IP joints are stiff, he has tightness in his palm. He tolerated mobilization well, however he had pain at end ranges. He reports that he has worn his braces for a little while but he is not wearing them for long periods of time at this point. BALANCE: Static sitting Good Dynamic Sitting Good SPECIAL TESTS: Daily Activity Limitations Standardized Measure [facility] ? AM -PAC ? ?6 clicks? Daily Activity Inpatient Short Form: Raw score: 7? Standardized score: 20.13 ? CMS score: 92.44% ? ? INFORMED CONSENT/EDUCATION: Pt instructed in purpose of OT Consult and plan of care. ASSESSMENT: ? Patient is a 55-year-old male referred to occupational therapy services with diagnosis of major depressive disorder, quaridplegia, UTI, decubitus skin ulcer, constipation, neurogenic bladder who recently under went a colostomy, aspiration of airway and is currently in ICU level of care. Patient presents with clinical signs and symptoms consistent with dx, as demonstrated by the following impairment level findings/functional limitations: Pt requires max (A) for most ADL/IADL routines, he has contracted position of his digits and decreased functional activity tolerance due to fatigue. Decreased sensation in (B) UE and inability to perform his functional mobility (I) without (A). He was discharged from [facility] level of care and is currently being seen again under acute level of care at this time due to osteomylitis in his wounds/bones of the sacrum. AMPAC score 7 Patient is assessed as a High 24016? complexity based on the following: History: see above Examination: see functional limitations as noted above Presentation: evolving Decision Making: AMPAC score 7, CMS 92.44% GOALS Goals x1 week 1.? Grooming- pt will be mod (I) with brushing his teeth with mod vc throughout 2.? Dressing- Pt will be mod (A) with don and doffing shirt 3.? Bathing- pt will be able to (I) wash his face and (B) UE 4. Pt will hold his fork and be (I) food to mouth for 1 meal per day with progression based on functional activity tolerance PLAN OF CARE/TREATMENT PLAN: 1x/day, 5 days/ week x 1week Initiate Occupational Therapy Services for bathing, dressing, grooming, toileting, eating, transfer training. DISCHARGE RECOMMENDATIONS Return to SNF vs. Home with 24 hour care givers. TREATMENT TIME/MINUTES/CODES [id number], [id number], 25 minutes (08:20) Michelle Pearce OTR/L [facility]
[2021-03-27] MEDS: HYDROmorphone 2 MG/ML VIAL IVP ×3 (13:46→22:02)
--- NOTE | 2021-03-27 16:14 | PTTR_ITS ---
Date of service: 03/27/21 Time of Service: 16:14 PT Notes Visit Reasons: Osteo of left buttocks, UTI, Quadrapelgic Inpatient Physical Therapy Treatment Note Date: 03/27/2021 Precautions: High risk for skin breakdown. Plegic in B LE, paretic in B UE. Subjective: Down today, continues to feel that he is spiralling down. Reports pain in L shoulder and asked not to do any exercise with it. Complained about not being able to sleep the previous night, stayed awake since 11:30 pm. Objective: General Observation: Supine in bed. Catheter in place. Wound vacuum to sacral/gluteal decubiti. NGT in place. Ostomy in place. Mental Status: A&Ox4. Pain: Persistent? pain and stiffness on L shoulder that continues to limit exercise participation THERA ACT: Continued with activities to increase B UE ROM. Please refer to exercise sheet for detailed exercise activity given to patient today. Positioning strategies continue to be done to minimize PF contracture and new skin breakdown. Sheet roll placed on sides of knees to block excessive hip ER for positioning. Assessment:? New ostomy in place. NGT in place. Incomplete C6-C7 quadriplegia. Paretic in B UE, complete paralysis in B LE. Intact as to pain and light touch up to T6 dermatomal level. Functional grasp limited to tenodesis effect at this time. Will continue to assess benefit of PT services in light of new co- morbidities. Will plan on training nursing staff to take over PROM on B LE. Will look into frequency reduction as needed. DISCHARGE RECOMMENDATIONS: Return to SNF with wheelchair positioning/management and contracture prevention program. TREATMENT CODE/TIME: 17179 x 26 minutes beginning at 16:14 PM.
--- NOTE | 2021-03-27 16:16 | W.PM.PROGNOT ---
Date of Service Date of service: 03/27/21 Time of Service: 16:16 Assessment and Plan Assessment and plan (1) Hypokalemia: Status: Acute Assessment and plan: Repleted. Cont to monitor. (2) Ileus: Status: Acute Assessment and plan: Resolving. Still has NG; clampled early today but develope nausea. Now to suction. Surgery managing. Cont TPN (3) Acute osteomyelitis of sacrum: Status: Acute Assessment and plan: Zosyn and Vanc (4) Decubitus ulcer of buttock, stage 4: Status: Acute Assessment and plan: Wound vac. Improving. Wound vac change tomorrow. Qualifiers: Laterality: left Qualified Code(s): L89.324 - Pressure ulcer of left buttock, stage 4 (5) Major depressive disorder: Status: Chronic Assessment and plan: Duloxetine and Buspar. Affect better today. Subjective Subjective Patient reports: no new complaints, feels better and afebrile; denies shortness of breath Interval history since last seen: Ongoing R shoulder pain intermittently. + flatus in ostomy bag. Mild intermittent nausea. Exam Const General: cooperative and no acute distress Nutritional Appearance: average body habitus Orientation: alert and oriented x3 Resp Effort & Inspection: normal respiratory effort Auscultation: clear to auscultation bilaterally Cardio Rate: regular rate Rhythm: regular rhythm Heart Sounds: S1 normal and S2 normal GI Inspection: distended Palpation: tender (mild diffuse) Extrem General: no calf tenderness and other (ANKITA stockings in place) Psych Appearance: grossly normal Mental Status: mental status grossly normal Affect: normal affect Objective Last Vital Signs Temp 36.3 C L 03/27/21 15:28 Pulse 77 03/27/21 15:28 Resp 16 03/27/21 15:28 BP 170/99 H 03/27/21 15:28 Pulse Ox 99 03/27/21 15:28 Laboratory Results - last 24 hr 03/27/21 03/27/21 03/27/21 06:25 06:25 06:25 WBC 8.70 RBC 2.89 L Hgb 9.4 L Hct 25.5 L MCV 88.2 MCH 32.5 MCHC 36.9 H RDW 19.7 H Plt Count 246 D MPV 10.0 Immature Gran % 0.8 Neutrophils % 71.8 Lymphocytes % 16.0 Monocytes % 6.9 Eosinophils % 4.3 Basophils % 0.2 Nucleated RBC % 0 Absolute Neutrophils 6.25 Absolute Lymphocytes 1.39 Absolute Monocytes 0.60 Absolute Eosinophils 0.37 Absolute Basophils 0.02 Sodium 143 Potassium 3.7 D Chloride 108 H Carbon Dioxide 25.2 Anion Gap 9.8 BUN 19 H Creatinine 0.6 L Estimated GFR/1.73 m2 >= 60.00 Glucose 104 Calcium 8.9 Phosphorus 2.2 L Magnesium 1.9
[2021-03-27] MEDS: DEXTROSE 5%-0.45% SALINE 1,000 ML 75 ML IV (16:57)
[2021-03-27] MEDS: LORazepam 2 MG/ML VIAL IV (17:35)
[2021-03-27] MEDS: Ketorolac 30 MG/ML VIAL IVP (18:23)
[2021-03-27] MEDS: Mirtazapine 15 MG TAB 30 MG PO (22:08)
[2021-03-27] MEDS: Zolpidem 10 MG TAB PO (22:09)
[2021-03-27] MEDS: Enoxaparin 40 MG/0.4 ML SYR SC (22:10)
[2021-03-28] MEDS: Normal Saline Flush 10 ML SYR IVP ×6 (01:16→19:30)
[2021-03-28] MEDS: PIPERACILLIN/TAZO 3.375 GM in Normal Saline 50 ML IVPB ×4 (01:16→17:50)
[2021-03-28] MEDS: Metoclopramide 10 MG/2 ML VIAL IVP ×4 (03:09→19:28)
[2021-03-28] MEDS: DEXTROSE 5%-0.45% SALINE 1,000 ML 75 ML IV ×2 (06:44→21:17)
[2021-03-28 07:21] LABS: HCT 29.3 % (40.0-50.0); HGB 9.1 g/dL (13.5-17.5); MCH 26.5 pg (27.0-33.0); MCHC 31.1 % (32.0-36.0); MCV 85.4 fL (80-95); MPV 9.8 fL (8.0-11.0); Platelet Count 360 10^3/uL (130-400); RBC 3.43 10^6/uL (4.36-5.78); RDW 15.5 % (11.8-14.1); RDW-SD 45.7 fL; WBC 6.24 10^3/uL (4.4-10.8)
[2021-03-28 07:31] VITALS: BP 157/92; PULSE 82; RESP 18; TEMP 35.6; O2SAT 97
[2021-03-28 07:32] LABS: Anion Gap 7.2 mmol/L (3-11); BUN 22 mg/dL (7-18); CO2 25.8 mmol/L (21.0-32.0); CREATININE 0.5 mg/dL (0.70-1.30); Calcium 9.2 mg/dL (8.5-10.1); Chloride 108 mmol/L (98-107); Glucose 104 mg/dL (74-106); Magnesium 1.9 mg/dL (1.8-2.4); Potassium 4.4 mmol/L (3.5-5.1); Sodium 141 mmol/L (136-145)
[2021-03-28 07:33] LABS: PHOSPHORUS 2.7 mg/dL (2.6-4.7)
--- NOTE | 2021-03-28 07:37 | W.PM.PROGNOT ---
Documented by User: KAN Da Silva 03/28/21 07:43 Date of Service Date of service: 03/28/21 Time of Service: 07:37 Assessment and Plan Assessment and plan (1) Neurogenic bowel: Status: Acute Assessment and plan: POD #8 s/p diverting colostomy Stoma: Superficial necrosis is noted. It is still edematous.. It is patent. brown, clear fluid noted in ostomy. Abdomen continues to be distended, slightly less than yesterday. Active bowel sounds this morning. Continue Reglan q 6 hours NG tube has >600ccs out since 2300. (2) Constipation due to neurogenic bowel: Status: Acute (3) Acute osteomyelitis of sacrum: Status: Acute Assessment and plan: Continue antibiotics Cultures show sensitivity to vancomycin Antibiotics per Hospitalist team (4) Decubitus ulcer of buttock, stage 4: Status: Acute Assessment and plan: Wound vac changed Qualifiers: Laterality: left Qualified Code(s): L89.324 - Pressure ulcer of left buttock, stage 4 (5) H/O deep venous thrombosis: Status: Chronic Assessment and plan: Continue Lovenox (6) Quadriplegia: Status: Chronic (7) UTI (urinary tract infection): Status: Acute Assessment and plan: Cultures showed <10,000 colonies Qualifiers: Encounter type: initial encounter Indwelling urinary catheter type: indwelling urethral catheter Urinary tract infection type: catheter-associated UTI Qualified Code(s): T83.511A - Infection and inflammatory reaction due to indwelling urethral catheter, initial encounter; N39.0 - Urinary tract infection, site not specified (8) Neurogenic bladder: Status: Chronic Assessment and plan: suprapubic pereyra in place (9) Ileus: Status: Acute Assessment and plan: Active bowel sounds today (10) Hx of caloric malnutrition: Status: Acute Assessment and plan: Continue NPO given >600cc output from NG tube over night. Conitnue TPN Subjective Subjective Interval history since last seen: Patient reports he is Okay today, that his muscle spasms make it difficult to sleep. Exam Const General: cooperative and comfortable Orientation: alert and oriented x3 Resp Effort & Inspection: normal respiratory effort, no audible wheezes and cough GI Inspection: distended Palpation: firm, no guarding and nontender Auscultation: normal bowel sounds Other: Brown, clear liquid noted in ostomy bag. Objective Last Vital Signs Temp 35.6 C L 03/28/21 07:31 Pulse 82 03/28/21 07:31 Resp 18 03/28/21 07:31 BP 157/92 H 03/28/21 07:31 Pulse Ox 97 03/28/21 07:31 Laboratory Results - last 24 hr 03/27/21 03/28/21 03/28/21 06:25 06:49 06:49 WBC 6.24 RBC 3.43 L Hgb 9.1 L Hct 29.3 L MCV 85.4 MCH 26.5 L MCHC 31.1 L RDW 15.5 H Plt Count 360 D MPV 9.8 Sodium Potassium Chloride Carbon Dioxide Anion Gap BUN Creatinine Estimated GFR/1.73 m2 Glucose Calcium Phosphorus 2.2 L 2.7 Magnesium 1.9 03/28/21 06:49 WBC RBC Hgb Hct MCV MCH MCHC RDW Plt Count MPV Sodium 141 Potassium 4.4 Chloride 108 H Carbon Dioxide 25.8 Anion Gap 7.2 BUN 22 H Creatinine 0.5 L Estimated GFR/1.73 m2 >= 60.00 Glucose 104 Calcium 9.2 Phosphorus Magnesium 1.9 Documented by User: Wale Calderon MD 03/28/21 20:33
--- NOTE | 2021-03-28 08:08 | OTTR_ITS ---
Date of service: 03/28/21 Time of Service: 07:25 Occupational Therapy Notes Occupational Therapy Inpatient Treatment Note Date: 03/28/21 PRECAUTIONS: Fall, standard, Full SUBJECTIVE: Pt was sitting in bed when OT arrived. He states that he is happy to be on Med Surg he notes that he had an issue with a nurse in the ICU that made him feel uncomfortable. OBJECTIVE: ? PAIN:no c/o pain Manual Therapy [id number]: OT performed joint blocking techniques and manual mobilization to pts (B) UE at MP, IP and DIP as well as PROM to pts (B) thumbs into flexion.? He is tolerating this well and with use of tool OT performed IASTM with down regulation on dorsal aspect of digits with soreness in his (L) thumb which could be nerve related. OT passively mobilized pts (B) wrists into flexion and extension which he had some pain at end ranges. Pt has increased tone in his (L) bicep and is sore when OT attempts to mobilize his (L) UE. OT will continue to monitor this. His hands are able to be placed in the extended position at rest, he has a slight tremor in his (L) UE. OT does feel that this is due to pain in his (L) UE and will monitor this at next session. ? ASSESSMENT/PLAN: Plan is to continue to progress pts functional (I) as he feels is appropriate. He is uncomfortable and has increased pain in (L) UE. He has increased shoulder pain and OT will discuss this further with Physical therapy to see if we can ge his shoulders tape to decrease his pain. ? TREATMENT CODES/TIME: [id number], 20 minutes (07:25) Michelle Pearce, OTR/L [facility]
[2021-03-28] MEDS: DULoxetine 30 MG CAP PO (09:11)
[2021-03-28] MEDS: Normal Saline Flush 10 ML SYR 20 ML IVP ×2 (09:11→18:02)
[2021-03-28] MEDS: ACETAMINOPHEN 1,000 MG/100 ML BTL 400 MG IVPB ×2 (09:11→16:30)
[2021-03-28] MEDS: Pantoprazole 40 MG VIAL IVP (09:12)
[2021-03-28] MEDS: LORazepam 2 MG/ML VIAL IV (09:13)
[2021-03-28] MEDS: HYDROmorphone 2 MG/ML VIAL IVP ×3 (09:14→21:35)
[2021-03-28 10:07] LABS: Vancomycin, Trough 11.8 ug/mL (10.0-20.0)
[2021-03-28] MEDS: Lidocaine 5% Patch 2 PATCH TP (10:14)
--- NOTE | 2021-03-28 10:18 | PDOC.CMPRO ---
- If Service Date Differs Date of service: 03/28/21 Time of Service: 10:18 Care Management Progress Note S/O: Favio was lying in bed when CM met with him. He stated that he is feeling much better since he moved back to [facility]. He had just had his wound vac changed and was a bit uncomfortable at the time of the visit. He was also complaining of irritation from the NG tube. Nursing was preparing to adjust the tube and add analgesic lubricant in the hopes of alleviating some of the discomfort. A: Favio is a 55 year old man admitted to [facility] on 02/22/21 with obstipation. He is now being treated for osteomyelitis of the sacrum and has had a colostomy. P: Favio will likely continue to seek placement at a different facility with the help of his family. He will follow up with their provider's plan of care. Favio will transport via ambulance coordinated by [facility]. CM will continue to support Favio and his family and assess for ongoing discharge concerns.
[2021-03-28] MEDS: Ketorolac 30 MG/ML VIAL IVP (10:24)
[2021-03-28] MEDS: VANCOMYCIN/WATER (PEG) 1.25 GM/250 ML BAG IVPB ×2 (10:25→19:27)
--- NOTE | 2021-03-28 10:36 | W.PM.PROGNOT ---
Date of Service Date of service: 03/28/21 Time of Service: 10:36 Assessment and Plan Assessment and plan (1) Hypotension: Status: Acute Assessment and plan: Has been on midodrine but BP has been elevated. Holding midodrine and monitoring BP. Qualifiers: Hypotension type: neurogenic orthostatic hypotension Qualified Code(s): G90.3 - Multi-system degeneration of the autonomic nervous system (2) Hx of caloric malnutrition: Status: Acute Assessment and plan: Currently NPO while ileus resolves. TPN (3) Constipation due to neurogenic bowel: Status: Acute Assessment and plan: S/P diverting colostomy. Ileus resolving; + bowel sounds and small amts of stool passing into ostomy bag. Clamping NG with meds; causes some nausea. Still has fairly high NG outpt. Gen Surg is following. (4) Acute osteomyelitis of sacrum: Status: Acute Assessment and plan: On Zosyn and Vanc. Wound vac in place and to be changed today. Has started to show granulation tissue. No longer is bone exposed. (5) Major depressive disorder: Status: Chronic Assessment and plan: Improved affect Cont Duloxetine and Buspar (6) Iron deficiency anemia: Status: Acute Assessment and plan: Has received a 200mg dose of Venofer; repeat today. Monitor H/H. Subjective Subjective Patient reports: no new complaints and nausea (mild when NG is clamped); denies tolerating a regular diet (Is NPO with NG to suction (clamped with pills).) and shortness of breath Interval history since last seen: NG outpt of 200ml over 3 hours; now clamped after taking meds. Wound vac to be changed today. Exam Const General: cooperative and no acute distress Nutritional Appearance: average body habitus Orientation: alert and oriented x3 Resp Effort & Inspection: normal respiratory effort Auscultation: clear to auscultation bilaterally Cardio Rate: regular rate Rhythm: regular rhythm Heart Sounds: S1 normal and S2 normal GI Inspection: distended Palpation: tender (mild, diffuse) Auscultation: hypoactive bowel sounds Extrem General: no calf tenderness and edema (dorsum of feet.) Psych Appearance: grossly normal Affect: normal affect Objective Last Vital Signs Temp 35.6 C L 03/28/21 07:31 Pulse 82 03/28/21 07:31 Resp 18 03/28/21 07:31 BP 157/92 H 03/28/21 07:31 Pulse Ox 97 03/28/21 07:31 Laboratory Results - last 24 hr 03/28/21 03/28/21 03/28/21 06:49 06:49 06:49 WBC 6.24 RBC 3.43 L Hgb 9.1 L Hct 29.3 L MCV 85.4 MCH 26.5 L MCHC 31.1 L RDW 15.5 H Plt Count 360 D MPV 9.8 Sodium 141 Potassium 4.4 Chloride 108 H Carbon Dioxide 25.8 Anion Gap 7.2 BUN 22 H Creatinine 0.5 L Estimated GFR/1.73 m2 >= 60.00 Glucose 104 Calcium 9.2 Phosphorus 2.7 Magnesium 1.9 Vancomycin Trough 03/28/21 09:30 WBC RBC Hgb Hct MCV MCH MCHC RDW Plt Count MPV Sodium Potassium Chloride Carbon Dioxide Anion Gap BUN Creatinine Estimated GFR/1.73 m2 Glucose Calcium Phosphorus Magnesium Vancomycin Trough 11.8
[2021-03-28] MEDS: Lidocaine 2% Viscous 15 ML CUP (11:44)
[2021-03-28] MEDS: IRON SUCROSE COMPLEX 200 MG in Normal Saline 100 ML 400 MG IVPB (14:24)
[2021-03-28 15:10] VITALS: BP 123/78; PULSE 74; RESP 18; TEMP 36.1; O2SAT 98
--- NOTE | 2021-03-28 15:15 | PT.INTREAT ---
Date of service: 03/28/21 Time of Service: 15:15 PT Notes Visit Reasons: Osteo of left buttocks, UTI, Quadrapelgic Inpatient Physical Therapy Treatment Note Date: 03/28/2021 Precautions: High risk for skin breakdown. Plegic in B LE, paretic in B UE. Subjective: Teary-eyed today. Mother present in room and teary-eyed as well. Both are okay with PT session. L shoulder continues to bother patient, agreeable with not moving L shoulder. Understands potential benefit of taping however unable to do today due to Lidocaine patch placement. Agreed to doing taping tomorrow morning before patches are placed. Objective: General Observation: Supine in bed. Catheter in place. Wound vacuum to sacral/gluteal decubiti. NGT in place. Ostomy in place. Mental Status: A&Ox4. Pain: Persistent? pain and stiffness on L shoulder that continues to limit exercise participation THERA EX/THERA ACT: Trained with room exercises today. Continued with activities to increase B UE ROM. Please refer to exercise sheet for detailed exercise activity given to patient today. Positioning strategies continue to be done to minimize PF contracture and new skin breakdown. Sheet roll placed on sides of knees to block excessive hip ER for positioning. Assessment:? Prognosis for functional improvement poor due to new ostomy, NGT, and abdominal discomfort. Status of motorized wheelchair procurement unknown at this time and with goals for PT intevention tied with use of said wheelchair, PT services may not be able to continue. A functional maintenance program for ROM is in order. Will plan on training nursing staff to take over PROM on B LE. Will look into frequency reduction as needed. DISCHARGE RECOMMENDATIONS: Return to SNF when medically cleared by hospitalist. Will benefit from the use of a hospital bed to maintain skin integrity and prevent breakdown/infection. Will benefit from the use of a motorized wheelchair for positioning changes. TREATMENT CODE/TIME: 83239 x 26 minutes beginning at 15:15 PM.
[2021-03-28 19:23] VITALS: BP 137/68; PULSE 80; RESP 18; TEMP 36.5; O2SAT 97
[2021-03-28] MEDS: Enoxaparin 40 MG/0.4 ML SYR SC (21:13)
[2021-03-28] MEDS: Zolpidem 10 MG TAB PO (21:13)
[2021-03-28] MEDS: Mirtazapine 15 MG TAB 30 MG PO (21:13)
[2021-03-28 23:33] VITALS: BP 176/96; PULSE 80; RESP 17; TEMP 36.5; O2SAT 99
[2021-03-29] MEDS: Normal Saline 500 ML IV (00:01)
[2021-03-29] MEDS: HYDROmorphone 2 MG/ML VIAL IVP ×3 (00:45→20:28)
[2021-03-29] MEDS: Normal Saline Flush 10 ML SYR IVP ×11 (00:46→23:42)
[2021-03-29] MEDS: Metoclopramide 10 MG/2 ML VIAL IVP ×4 (01:27→20:13)
[2021-03-29] MEDS: diphenhydrAMINE 50 MG/ML VIAL IVP ×2 (01:28→21:16)
[2021-03-29] MEDS: DEXTROSE 5%-0.45% SALINE 1,000 ML 75 ML IV ×2 (06:33→19:50)
[2021-03-29] MEDS: PIPERACILLIN/TAZO 3.375 GM in Normal Saline 50 ML IVPB ×5 (06:38→23:41)
[2021-03-29 07:14] LABS: HCT 31.2 % (40.0-50.0); HGB 9.7 g/dL (13.5-17.5); MCH 26.3 pg (27.0-33.0); MCHC 31.1 % (32.0-36.0); MCV 84.6 fL (80-95); MPV 10.2 fL (8.0-11.0); Platelet Count 356 10^3/uL (130-400); RBC 3.69 10^6/uL (4.36-5.78); RDW-SD 45.6 fL; WBC 6.48 10^3/uL (4.4-10.8)
[2021-03-29] MEDS: VANCOMYCIN/WATER (PEG) 1.25 GM/250 ML BAG IVPB ×2 (07:27→17:11)
[2021-03-29 07:29] LABS: Prothrombin Time 10.4 sec (9.3-11.0)
[2021-03-29 07:37] LABS: PHOSPHORUS 2.7 mg/dL (2.6-4.7)
[2021-03-29 07:45] LABS: ALT 135 U/L (16-63); AST 55 U/L (15-37); Albumin 2.6 g/dL (3.4-5.0); Alkaline Phosphatase 95 U/L (46-116); Anion Gap 6.8 mmol/L (3-11); BUN 19 mg/dL (7-18); Bilirubin, Total 0.3 mg/dL (0.2-1.0); CO2 25.2 mmol/L (21.0-32.0); CREATININE 0.7 mg/dL (0.70-1.30); Calcium 9.5 mg/dL (8.5-10.1); Chloride 109 mmol/L (98-107); Glucose 120 mg/dL (74-106); Potassium 4.1 mmol/L (3.5-5.1); Sodium 141 mmol/L (136-145); Total Protein 6.5 g/dL (6.4-8.2)
[2021-03-29 08:10] VITALS: BP 152/93; PULSE 85; RESP 18; TEMP 36.6; O2SAT 99
[2021-03-29 08:26] LABS: Lactate 0.7 mmol/L (0.6-1.4)
[2021-03-29] MEDS: Pantoprazole 40 MG VIAL IVP (08:49)
[2021-03-29] MEDS: Normal Saline Flush 10 ML SYR 20 ML IVP ×2 (08:49→20:14)
[2021-03-29] MEDS: DULoxetine 30 MG CAP PO (08:49)
--- NOTE | 2021-03-29 08:56 | OTTR_ITS ---
Date of service: 03/29/21 Time of Service: 08:25 Occupational Therapy Notes Occupational Therapy Inpatient Treatment Note Date: 03/29/21 PRECAUTIONS: Fall, standard, Full SUBJECTIVE: Pt was sitting in bed when OT arrived. He is tired and depressed, he reports that he thinks his wounds are getting better but he notes that he is discouraged. OBJECTIVE: PAIN:no c/o pain Manual Therapy [id number]: OT performed joint blocking techniques and manual mobilization to pts (B) UE at MP, IP and DIP as well as PROM to pts (B) thumbs into flexion. He is tolerating this well and with use of tool OT performed IASTM with down regulation on dorsal aspect of digits with soreness in his (L) thumb which could be nerve related. OT passively mobilized pts (B) wrists into flexion and extension which he had some pain at end ranges. Pt has increased t one in his (L) bicep and is sore when OT attempts to mobilize his (L) UE. OT will continue to monitor this. His hands are able to be placed in the extended position at rest, he has a slight tremor in his (L) UE again today. Pt is very pain dominant in his (L) UE, OT feels that this may be directly related to nerve pain as it presents similar to this at this time. OT will continue to monitor this. ASSESSMENT/PLAN: Plan is to continue to progress pts functional (I) as he feels is appropriate. He is uncomfortable and has increased pain in (L) UE. He has increased shoulder pain but the plan if for Physical therapy to continue with his shoulder while OT focuses more on his functional (I) with his hands. TREATMENT CODES/TIME: [id number], 20 minutes (08:25) Michelle Pearce, OTR/L [facility]
--- NOTE | 2021-03-29 09:16 | CMPROGNOTE_ITS ---
- If Service Date Differs Date of service: 03/29/21 Time of Service: 09:16 Care Management Progress Note S/O: Favio was lying in bed when CM met with him. He stated that he is feeling better since his suprapubic tube was replaced. Apparently it was plugged and after replacement Favio drained over 2 liters of urine and his abdomen became much less distended. Favio continues to leak stool rectally and his NG tube is still draining a considerable amount. Favio did share that he woke up with a s ore throat this morning, possibly from the NG tube. He is afebrile and his WBC remains within normal limits. A: Favio is a 55 year old man admitted to [facility] on 02/22/21 with obstipation. He is now being treated for osteomyelitis of the sacrum and has had a colostomy. P: Favio will likely continue to seek placement at a different facility with the help of his family. He will follow up with their provider's plan of care. Favio will transport via ambulance coordinated by [facility]. CM will continue to support Favio and his family and assess for ongoing discharge concerns.
--- NOTE | 2021-03-29 09:28 | PT.INTREAT ---
Date of service: 03/29/21 Time of Service: 09:28 PT Notes Visit Reasons: Osteo of left buttocks, UTI, Quadrapelgic Inpatient Physical Therapy Treatment Note Date: 03/29/2021 Precautions: High risk for skin breakdown. Plegic in B LE, paretic in B UE. Subjective: Favio continues to be in a not-so-good mood but tries his best to be pleasant. Understands the aim of using kinesiotape in L shoulder. Reported less discomfort in L shoulder with exercises after placement of kinesiotape. Agreed to keeping tape on until seen by PT tomorrow morning. Objective: General Observation: Supine in bed. Catheter in place. Wound vacuum to sacral/gluteal decubiti. NGT in place. Ostomy in place. Mental Status: A&Ox4. Pain: Persistent pain and stiffness on L shoulder that continues to limit exercise participation THERA EX/THERA ACT: Trained with room exercises today. Placed kinesiotape onto L shoulder and performed L shoulder, elbow, wrist exercises with minimal discomfort during and after activity. Assessment: Patient understands that the tape is placed on him for added support to the L shoulder joint and to minimize pain with exercise performance. It should NOT add to his pain. He was instructed to let nurse know if tape begins to bother him or in the event that pain increases, the tape may be removed using spray tape remover. Prognosis for functional improvement continues to be poor due to new ostomy, NGT, and abdominal discomfort. Status of motorized wheelchair procurement is unknown at this time and with goals for PT intevention tied with use of said wheelchair, PT services may not be able to continue. A functional maintenance program for ROM is in order. Will plan on training nursing staff to take over PROM on B LE. Will look into frequency reduction as needed this coming week. Has spoken with Nurse educator Angelia today about planning training and coming up with a checklist for range of motion maintenance program. DISCHARGE RECOMMENDATIONS: Return to SNF when medically cleared by hospitalist. Will benefit from the use of a hospital bed to maintain skin integrity and prevent breakdown/infection. Will benefit from the use of a motorized wheelchair for positioning changes. TREATMENT CODE/TIME: 37389 x 20 minutes beginning at 9:28 AM. CC:
[2021-03-29 09:30] VITALS: TEMP 36.6
[2021-03-29] MEDS: Lidocaine 5% Patch 2 PATCH TP (10:39)
--- NOTE | 2021-03-29 10:44 | W.NUTRFU ---
Date of service: 03/29/21 Time of Service: 10:44 Nutritional Follow up NOTE: Ron has been NPO x 6 days due to ileus. Continues on TPN D15/AA 5% with 20% lipids providing 1520 kcal, 82 g protein. Recommend prealbumin to assess adequacy of nutrient provision. Continue current TPN order until able to consume > 50% of oral diet when advanced. Blood sugars adequately controlled. Will continue to follow. Time Spent in Nutritional Counseling and Treatment: 10
--- NOTE | 2021-03-29 11:32 | W.PM.PROGNOT ---
Date of Service Date of service: 03/29/21 Time of Service: 10:32 Assessment and Plan Assessment and plan (1) Neurogenic bladder: Status: Chronic Assessment and plan: The previous catheter was not adequately draining of the bladder, so we replaced his catheter today. We will make arrangements to change the catheter routinely in 3 to 4 weeks. Subjective Subjective Interval history since last seen: The patient has been noticing urinary leakage through the suprapubic site as well as through the urethra. He has minimal output from the suprapubic tube itself. Exam Narrative Exam Narrative: He does not appear to optic or toxic His abdomen is distended and tympanic The suprapubic tube is in place but there is leakage around the stoma site Objective Last Vital Signs Temp 36.6 C 03/29/21 09:30 Pulse 85 03/29/21 08:10 Resp 18 03/29/21 08:10 BP 152/93 H 03/29/21 08:10 Pulse Ox 99 03/29/21 08:10 Laboratory Results - last 24 hr 03/29/21 03/29/21 03/29/21 06:30 06:30 06:30 WBC 6.48 RBC 3.69 L Hgb 9.7 L Hct 31.2 L MCV 84.6 MCH 26.3 L MCHC 31.1 L RDW 16.0 H Plt Count 356 MPV 10.2 PT 10.4 INR 1.0 VBG Lactate Sodium 141 Potassium 4.1 Chloride 109 H Carbon Dioxide 25.2 Anion Gap 6.8 BUN 19 H Creatinine 0.7 Estimated GFR/1.73 m2 >= 60.00 Glucose 120 H Calcium 9.5 Phosphorus Magnesium Total Bilirubin 0.3 AST 55 H ALT 135 H Alkaline Phosphatase 95 Total Protein 6.5 Albumin 2.6 L 03/29/21 03/29/21 06:30 08:14 WBC RBC Hgb Hct MCV MCH MCHC RDW Plt Count MPV PT INR VBG Lactate 0.7 Sodium Potassium Chloride Carbon Dioxide Anion Gap BUN Creatinine Estimated GFR/1.73 m2 Glucose Calcium Phosphorus 2.7 Magnesium 2.0 Total Bilirubin AST ALT Alkaline Phosphatase Total Protein Albumin Change Bladder Catheter Text: The patient was seen at the bedside. His indwelling suprapubic tube balloon was deflated and the catheter was removed. The site was then prepped. An 18 Tajik catheter was passed through the stoma site into the bladder. The catheter balloon was inflated with 10 cc of sterile water. The catheter was hooked to gravity drainage. Over a liter of urine was obtained from the bladder.
--- NOTE | 2021-03-29 14:07 | W.PM.PROGNOT ---
Date of Service Date of service: 03/29/21 Time of Service: 14:07 Assessment and Plan Assessment and plan (1) Hypotension: Start date: 03/29/21 Start time: 14:10 Status: Acute Assessment and plan: Has been on midodrine but BP has been elevated. Holding midodrine and monitoring BP Elevated but will monitor. Qualifiers: Hypotension type: neurogenic orthostatic hypotension Qualified Code(s): G90.3 - Multi-system degeneration of the autonomic nervous system (2) Hx of caloric malnutrition: Start date: 03/29/21 Start time: 14:10 Status: Acute Assessment and plan: Currently NPO while ileus resolves. TPN (3) Constipation due to neurogenic bowel: Start date: 03/29/21 Start time: 14:12 Status: Acute Assessment and plan: S/P diverting colostomy. Ileus resolving; + bowel sounds and small amts of stool passing into ostomy bag. Clamping NG with meds; causes some nausea. Still has fairly high NG outpt. Gen Surg is following. (4) Acute osteomyelitis of sacrum: Start date: 03/29/21 Start time: 14:12 Status: Acute Assessment and plan: On Zosyn and Vanc. Wound vac in place and to be changed today. Has started to show granulation tissue. No longer is bone exposed. Continue pictures every week to monitor wound healing (5) Major depressive disorder: Start date: 03/29/21 Start time: 14:13 Status: Chronic Assessment and plan: Improved affect Cont Duloxetine and Buspar (6) Iron deficiency anemia: Start date: 03/29/21 Start time: 14:13 Status: Acute Assessment and plan: Has received a 200mg dose of Venofer; repeat today. Monitor H/H. (7) DVT prophylaxis: Start date: 03/29/21 Start time: 14:13 Status: Chronic Assessment and plan: apixaban 5 mg bid resumed. (8) Discharge planning issues: Start date: 03/29/21 Start time: 14:16 Status: Acute Assessment and plan: At this time unable to find placement however he is still requiring acute medical care discussed with Dr. Montoya Subjective Subjective Interval history since last seen: Favio appears in good spirits today, no new complaints. asking when he can eat, explained when the tube comes out. He denies CP, SOB. Exam Const General: cooperative and no acute distress Nutritional Appearance: average body habitus Orientation: alert and oriented x3 HENMT General nose exam: other (NG in place) Resp Effort & Inspection: normal respiratory effort Auscultation: clear to auscultation bilaterally and diminished lung sounds Cardio Rate: regular rate Rhythm: regular rhythm Heart Sounds: S1 normal and S2 normal GI Inspection: distended Palpation: tender (mild, diffuse) and other (liquid stool in ostomy bag/ necrosis to stoma) Auscultation: hypoactive bowel sounds Skin General skin exam: no rashes or lesions noted Wounds: wounds noted (unable to visualize due to wound vac in place however due to pics improving) Neuro General: patient alert, patient awake and patient oriented x3 Extrem General: no calf tenderness, edema (dorsum of feet.), pedal edema (both feet) and other (ANKITA stockings in place) Psych Appearance: grossly normal Mental Status: mental status grossly normal Speech and Movement: speech clear Affect: normal affect and blunted Objective Last Vital Signs Temp 36.6 C 03/29/21 09:30 Pulse 85 03/29/21 08:10 Resp 18 03/29/21 08:10 BP 152/93 H 03/29/21 08:10 Pulse Ox 99 03/29/21 08:10 Laboratory Results - last 24 hr 03/29/21 03/29/21 03/29/21 06:30 06:30 06:30 WBC 6.48 RBC 3.69 L Hgb 9.7 L Hct 31.2 L MCV 84.6 MCH 26.3 L MCHC 31.1 L RDW 16.0 H Plt Count 356 MPV 10.2 PT 10.4 INR 1.0 VBG Lactate Sodium 141 Potassium 4.1 Chloride 109 H Carbon Dioxide 25.2 Anion Gap 6.8 BUN 19 H Creatinine 0.7 Estimated GFR/1.73 m2 >= 60.00 Glucose 120 H Calcium 9.5 Phosphorus Magnesium Total Bilirubin 0.3 AST 55 H ALT 135 H Alkaline Phosphatase 95 Total Protein 6.5 Albumin 2.6 L 03/29/21 03/29/21 06:30 08:14 WBC RBC Hgb Hct MCV MCH MCHC RDW Plt Count MPV PT INR VBG Lactate 0.7 Sodium Potassium Chloride Carbon Dioxide Anion Gap BUN Creatinine Estimated GFR/1.73 m2 Glucose Calcium Phosphorus 2.7 Magnesium 2.0 Total Bilirubin AST ALT Alkaline Phosphatase Total Protein Albumin
--- NOTE | 2021-03-29 15:41 | CHAPLAIN ---
I had a short visit with Favio today as his mom and Donny, the visiting systems programmer analyst from [facility]. I will continue to visit Favio.
[2021-03-29 15:56] VITALS: BP 114/73; PULSE 90; RESP 18; TEMP 37.4; O2SAT 97
[2021-03-29] MEDS: ACETAMINOPHEN 1,000 MG/100 ML BTL 400 MG IVPB (16:38)
[2021-03-29] MEDS: Ketorolac 30 MG/ML VIAL IVP (18:34)
--- NOTE | 2021-03-29 18:40 | W.PM.PROGNOT ---
Date of Service Date of service: 03/29/21 Time of Service: 17:44 Assessment and Plan Assessment and plan (1) Neurogenic bowel: Status: Acute Assessment and plan: POD #9 s/p diverting colostomy Stoma: Superficial slough is noted. It is still edematous.. It is patent. brown, clear fluid noted in ostomy. Abdomen continues to be distended, slightly less than yesterday. Active bowel sounds this morning. Continue Reglan q 6 hours Hopefully resolution of urinary retention will decrease ileus . (2) Constipation due to neurogenic bowel: Status: Acute (3) Acute osteomyelitis of sacrum: Status: Acute Assessment and plan: Continue antibiotics Cultures show sensitivity to vancomycin Antibiotics per Hospitalist team (4) Decubitus ulcer of buttock, stage 4: Status: Acute Assessment and plan: Wound vac changed Qualifiers: Laterality: left Qualified Code(s): L89.324 - Pressure ulcer of left buttock, stage 4 (5) H/O deep venous thrombosis: Status: Chronic Assessment and plan: Continue Lovenox (6) Quadriplegia: Status: Chronic (7) UTI (urinary tract infection): Status: Acute Assessment and plan: Consider sending U/A given recent urinary retention Qualifiers: Encounter type: initial encounter Indwelling urinary catheter type: indwelling urethral catheter Urinary tract infection type: catheter-associated UTI Qualified Code(s): T83.511A - Infection and inflammatory reaction due to indwelling urethral catheter, initial encounter; N39.0 - Urinary tract infection, site not specified (8) Neurogenic bladder: Status: Chronic Assessment and plan: suprapubic pereyra in place (9) Ileus: Status: Acute Assessment and plan: Active bowel sounds today (10) Hx of caloric malnutrition: Status: Acute Assessment and plan: Continue NPO. Still with significant NGT output. Conitnue TPN Subjective Subjective Patient reports: no new complaints and no bowel movement Interval history since last seen: Pt is feeling okay. Suprapubic catheter was found to clogged, and was changed today, with significant decompression. Scant ostomy output. Concern this morning from nursing about output from non-purulent rectum--I assured them that it is normal and expected. Favio is complaining that his shoulders are sore after wound VAC change earlier today. Exam Const General: cooperative and no acute distress HENMT Other: NGT in place, draining bilious fluid Resp Effort & Inspection: normal respiratory effort Auscultation: clear to auscultation bilaterally GI Other: Abdomen is softer, distended with decreased tympany. Other: suprapubic catheter in place draining clear urine Neuro General: patient alert, patient awake and patient oriented x3 Cognition: normal cognition Speech: speech normal Other: quadriplegic Extrem Other: no calf swelling Objective Last Vital Signs Temp 99.3 F 03/29/21 15:56 Pulse 90 03/29/21 15:56 Resp 18 03/29/21 15:56 BP 114/73 03/29/21 15:56 Pulse Ox 97 03/29/21 15:56 Laboratory Results - last 24 hr 03/29/21 03/29/21 03/29/21 06:30 06:30 06:30 WBC 6.48 RBC 3.69 L Hgb 9.7 L Hct 31.2 L MCV 84.6 MCH 26.3 L MCHC 31.1 L RDW 16.0 H Plt Count 356 MPV 10.2 PT 10.4 INR 1.0 VBG Lactate Sodium 141 Potassium 4.1 Chloride 109 H Carbon Dioxide 25.2 Anion Gap 6.8 BUN 19 H Creatinine 0.7 Estimated GFR/1.73 m2 >= 60.00 Glucose 120 H Calcium 9.5 Phosphorus Magnesium Total Bilirubin 0.3 AST 55 H ALT 135 H Alkaline Phosphatase 95 Total Protein 6.5 Albumin 2.6 L 03/29/21 03/29/21 06:30 08:14 WBC RBC Hgb Hct MCV MCH MCHC RDW Plt Count MPV PT INR VBG Lactate 0.7 Sodium Potassium Chloride Carbon Dioxide Anion Gap BUN Creatinine Estimated GFR/1.73 m2 Glucose Calcium Phosphorus 2.7 Magnesium 2.0 Total Bilirubin AST ALT Alkaline Phosphatase Total Protein Albumin
[2021-03-29] MEDS: Apixaban 5 MG TAB PO (20:13)
[2021-03-29] MEDS: Mirtazapine 15 MG TAB 30 MG PO (21:18)
[2021-03-29] MEDS: Zolpidem 10 MG TAB PO (21:18)
[2021-03-29 22:48] VITALS: O2SAT 98
[2021-03-29 23:00] VITALS: BP 111/69; PULSE 68; RESP 17; TEMP 36.5; O2SAT 100
--- NOTE | 2021-03-30 | DI.CT_ITS ---
Exam(s) CT ABDOMEN PELVIS W EXAM: CT ABDOMEN PELVIS W CLINICAL HISTORY: concern for SBO; IV and NG contrast. TECHNIQUE: Imaging Protocol: Axial computed tomography images with coronal and sagittal reformatted images were created and reviewed CONTRAST MATERIAL: Intravenous: Omnipaque 350 Contrast volume:99 mL Oral: No COMPARISON: CT CT ABDOMEN PELVIS WO from 02/24/2021 FINDINGS: The examination is limited due to patient motion artifact. ABDOMEN: Lung Bases: Mild dependent atelectasis. There is a small right pleural effusion. Small hiatal herni a. The tip of the nasogastric tube is seen in the body of the stomach. Liver: Normal density. No measurable mass. Portal, Superior Mesenteric, and Splenic Veins: Unremarkable. Gallbladder and Biliary Tract: No radiodense calculus or dilation. Pancreas: Normal density, no abnormal calcifications or inflammatory process. Spleen: Normal. Adrenals: No masses seen. Kidneys: Normal size, contour and axis. No radiodense stones or obstructive uropathy. No masses seen. Abdominal Aorta: Abdominal portion non-dilated. Mild atherosclerosis. Bowel: There multiple distended fluid-filled small and large bowel loops. Small bowel diameter excee ds 5 cm. Cecal diameter approaches 9 cm. No evidence of appendicitis. Since the prior examination the patient is peers to have undergone partial colonic resection with a left lower quadrant ostomy. Peritoneal Cavity: There is a trace amount of free fluid in the pelvis. No free air. Lymph Nodes: Within normal limits. Bones: There are degenerative changes throughout the spine. Adjacent to the left ischial tuberosity, there is a focus of air in the soft tissues which may represent a small ulcer. The adjacent ischial tuberosity is incompletely imaged. Soft Tissues: There is diffuse subcutaneous edema. PELVIS: Bladder: The urinary bladder is incompletely distended. There is a suprapubic catheter again seen. Reproductive Organs: Unremarkable as visualized. Lymph Nodes: Within normal limits. Bones: Please see the above discussion. IMPRESSION: Findings suspicious for high-grade large bowel obstruction which appears to be proximal to the ostomy . The patient is recently status post left ostomy for neurogenic bowel. RADIATION DOSE DELIVERED: 1,412.98mGy.cm Total DLP DATA REPOSITORY: All CT scans at this facility are submitted to the National Radiology Data Registry (NRDR) Dose Index Registry (DIR) with the [employer] ([employer]). RADIATION OPTIMIZATION: All CT scans at this facility use at least one of these dose optimization te chniques: automated exposure control; mA and/or kV adjustment per patient size (includes targeted exa ms where dose is matched to clinical indication); or iterative reconstruction.
--- NOTE | 2021-03-30 | DI.RAD_ITS ---
Exam(s) XR ABDOMEN FLAT PLATE EXAM: 2D digital imaging was performed. CLINICAL HISTORY: eval path of gastrograffin contrast into ostomy. COMPARISON: CR,XR XR ABDOMEN FLAT PLATE from 03/23/2021 TECHNIQUE: Supine views of the abdomen performed. FINDINGS: BOWEL GAS PATTERN: There are distended loops of small and large bowel proximal to the ostomy. Iodine based contrast has been placed via the ostomy. Stool filled distal colon is opacified. No extravas ation of contrast is identified. CALCIFICATIONS: No radiopaque calcifications. OSSEOUS STRUCTURES: Normal for age. OTHER FINDINGS: The patient has a suprapubic catheter. There is a small amount of residual contrast within the urinary bladder from the patient's recent CT scan. IMPRESSION: 1. Findings consistent with a proximal bowel obstruction. 2. Left lower quadrant ostomy is identified. Opacified stool filled bowel is noted. No contrast ext ravasation is present. DATA REPOSITORY: RADIATION DOSE DELIVERED:
[2021-03-30] MEDS: Metoclopramide 10 MG/2 ML VIAL IVP ×4 (01:41→14:56)
[2021-03-30] MEDS: VANCOMYCIN/WATER (PEG) 1.25 GM/250 ML BAG IVPB ×2 (01:42→13:06)
[2021-03-30] MEDS: Normal Saline Flush 10 ML SYR IVP ×6 (01:42→22:37)
[2021-03-30] MEDS: HYDROmorphone 2 MG/ML VIAL IVP ×2 (05:11→22:37)
[2021-03-30] MEDS: PIPERACILLIN/TAZO 3.375 GM in Normal Saline 50 ML IVPB ×3 (05:36→18:43)
[2021-03-30] MEDS: Insulin Aspart 300 UNITS/3 ML PEN SC (05:49)
[2021-03-30 07:26] LABS: Abs Immature Grans 0.02 10^3/uL (0.0-0.06); Absolute Basophil Count 0.02 10^3/uL (0.0-0.2); Absolute Eosinophil Count 0.26 10^3/uL (0.0-0.7); Absolute Lymphocyte Count 1.04 10^3/uL (1.2-3.4); Absolute Monocyte Count 0.54 10^3/uL (0.1-0.8); Absolute Neutrophil Count 2.89 10^3/uL (1.2-6.7); Basophils % 0.4; Eosinophils % 5.5; HCT 27.4 % (40.0-50.0); HGB 8.5 g/dL (13.5-17.5); Immature Grans % 0.4; Lymphocytes % 21.8; MCH 26.8 pg (27.0-33.0); MCV 86.4 fL (80-95); MPV 10.4 fL (8.0-11.0); Monocytes % 11.3; Neutrophils % 60.6; Nucleated RBC 0 %; Platelet Count 284 10^3/uL (130-400); RBC 3.17 10^6/uL (4.36-5.78); RDW 16.3 % (11.8-14.1); RDW-SD 48.9 fL; WBC 4.77 10^3/uL (4.4-10.8)
[2021-03-30 07:33] LABS: Anion Gap 2.3 mmol/L (3-11); BUN 21 mg/dL (7-18); CO2 26.7 mmol/L (21.0-32.0); CREATININE 0.6 mg/dL (0.70-1.30); Calcium 9.2 mg/dL (8.5-10.1); Chloride 106 mmol/L (98-107); Glucose 115 mg/dL (74-106); Magnesium 1.7 mg/dL (1.8-2.4); Potassium 3.6 mmol/L (3.5-5.1); Sodium 135 mmol/L (136-145)
[2021-03-30 08:25] VITALS: BP 137/78; PULSE 80; RESP 16; TEMP 37.3; O2SAT 98
[2021-03-30] MEDS: Pantoprazole 40 MG VIAL IVP (08:35)
[2021-03-30] MEDS: Normal Saline Flush 10 ML SYR 20 ML IVP ×2 (08:36→22:18)
[2021-03-30] MEDS: Apixaban 5 MG TAB PO (08:37)
[2021-03-30] MEDS: DULoxetine 30 MG CAP PO (08:37)
[2021-03-30] MEDS: DEXTROSE 5%-0.45% SALINE 1,000 ML 75 ML IV ×2 (08:57→22:00)
[2021-03-30] MEDS: MAGNESIUM SULFATE 2 GM/50 ML BAG IVPB (10:10)
[2021-03-30] MEDS: Lidocaine 5% Patch 2 PATCH TP (10:10)
--- NOTE | 2021-03-30 10:11 | PDOC.CMPRO ---
- If Service Date Differs Date of service: 03/30/21 Time of Service: 10:11 Care Management Progress Note S/O: Favio is pleasant and talkative when CM comes to meet with him. He expresses his frustration over the visitor policy at [facility] and shares that because his brother and a friend came by to see him, his mother was unable to visit. Favio also talks about how tired he is of having to have procedure after procedure. His abdomen is distended today, so a CT of his abdomen and pelvis is ordered for 5:30 pm this evening to rule out a small bowel obstruction. CM will continue to follow. A: Favio is a 55 year old man admitted to [facility] on 02/22/21 with obstipation. He is now being treated for osteomyelitis of the sacrum and has had a colostomy. P: No change in plan. Favio will likely continue to seek placement at a different facility with the help of his family. He will follow up with their provider's plan of care. Favio will transport via ambulance coordinated by CM. CM will continue to support Favio and his family and assess for ongoing discharge concerns.
--- NOTE | 2021-03-30 10:11 | W.PM.PROGNOT ---
Date of Service Date of service: 03/30/21 Time of Service: 10:11 Assessment and Plan Assessment and plan (1) Hypotension: Start date: 03/30/21 Start time: 10:40 Status: Acute Assessment and plan: BP normotensive. Continue to hold midodrine Monitor BP and restart if needed Qualifiers: Hypotension type: neurogenic orthostatic hypotension Qualified Code(s): G90.3 - Multi-system degeneration of the autonomic nervous system (2) Hx of caloric malnutrition: Start date: 03/30/21 Start time: 10:41 Status: Acute Assessment and plan: Currently NPO while ileus resolves. TPN (3) Constipation due to neurogenic bowel: Start date: 03/30/21 Start time: 10:41 Status: Acute Assessment and plan: S/P diverting colostomy. Ileus slow to resolve; + bowel sounds to lower quads, barely audible to upper. small amount liquid in ostomy bag Clamping NG with meds; causes some nausea. Still has fairly high NG outpt. Gen Surg is following. (4) Acute osteomyelitis of sacrum: Start date: 03/30/21 Start time: 10:43 Status: Acute Assessment and plan: On Zosyn and Vanc. Wound vac in place on right side. Leaking on left, wet to dry, nursing will attempt to reapply wound vac on left Has started to show granulation tissue. No longer is bone exposed. Continue pictures every week to monitor wound healing (5) Major depressive disorder: Start date: 03/30/21 Start time: 10:44 Status: Chronic Assessment and plan: Improved affect Cont Duloxetine and Buspar (6) Iron deficiency anemia: Start date: 03/30/21 Start time: 10:44 Status: Acute Assessment and plan: Has received a 200mg dose of Venofer; Monitor H/H. It did drop from 9.7 to 8.5 could be dilutional from 1000 output of NGT however will continue to monitor and give venofer if needed (7) DVT prophylaxis: Start date: 03/30/21 Start time: 10:45 Status: Chronic Assessment and plan: apixaban 5 mg bid resumed. (8) Discharge planning issues: Start date: 03/30/21 Start time: 10:45 Status: Acute Assessment and plan: At this time unable to find placement however he is still requiring acute medical care discussed with Dr. Murillo Subjective Subjective Patient reports: no new complaints Interval history since last seen: Patient is lying in bed HOB elevated, appears in good spirits. Dr. Calderon in room with patient as well stimulating stoma with finger. He c/o severe spasms to his forearms. Will give valium prn for spasms as needed. Otherwise denies CP, SOB, N/V/D Exam Narrative Exam Narrative: General: cooperative, no acute distress and ill appearing chronically, pleasant lying in bed Nutritional Appearance: obese centrally obese Orientation: alert, awake and oriented x3 ENT: EOM intact bilaterally, NGT in place to suction with brown drainage Chest: normal inspection of the chest Effort & Inspection: normal respiratory effort Lungs: diminished to auscultation bilaterally, no wheezing, coughing Abd: abd Distended,MERCY quadrants with barley audible bowel sounds, lower quads with hypoactive sounds; colostomy in place; stoma in place with some eschar on tip with bag, small amount fluid Sacrum: other (decubitus ulcers unable to examine wound vac in place) Wounds: wounds noted (unable to visualize wound vac in place) General: patient alert, patient awake and patient oriented x3 Cognition: normal cognition Speech: speech normal no motor function from chest down though voluntary movements with bilateral arms unable to move hands psyche: flat affect, depressed mood Objective Last Vital Signs Temp 37.3 C 03/30/21 08:25 Pulse 80 03/30/21 08:25 Resp 16 03/30/21 08:25 BP 137/78 03/30/21 08:25 Pulse Ox 98 03/30/21 08:25 Laboratory Results - last 24 hr 03/30/21 03/30/21 06:40 06:40 WBC 4.77 RBC 3.17 L Hgb 8.5 L Hct 27.4 L MCV 86.4 MCH 26.8 L MCHC 31.0 L RDW 16.3 H Plt Count 284 MPV 10.4 Immature Gran % 0.4 Neutrophils % 60.6 Lymphocytes % 21.8 Monocytes % 11.3 Eosinophils % 5.5 Basophils % 0.4 Nucleated RBC % 0 Absolute Neutrophils 2.89 Absolute Lymphocytes 1.04 L Absolute Monocytes 0.54 Absolute Eosinophils 0.26 Absolute Basophils 0.02 Sodium 135 L Potassium 3.6 Chloride 106 Carbon Dioxide 26.7 Anion Gap 2.3 L BUN 21 H Creatinine 0.6 L Estimated GFR/1.73 m2 >= 60.00 Glucose 115 H Calcium 9.2 Magnesium 1.7 L
[2021-03-30 11:59] LABS: Vancomycin, Trough 19.8 ug/mL (10.0-20.0)
--- NOTE | 2021-03-30 12:18 | PT.INTREAT ---
Date of service: 03/30/21 Time of Service: 09:10 PT Notes Visit Reasons: Osteo of left buttocks, UTI, Quadrapelgic Inpatient Physical Therapy Treatment Note [facility] Date: 03/30/2021 PRECAUTIONS:High risk for skin breakdown SUBJECTIVE: Stated he is doing okay today. No increased irritation post mobilization of left shoulder. Taping of shoulder feels fine, no skin irritation noticed. OBJECTIVE: PAIN: Slight sensitivity with AAROM of left UE shoulder flexion and abduction, but very tolerable. THEREX: Performed AAROM of left UE shoulder flexion, abduction, IR and ER, elbow flexion / extension and wrist/ digit flexion/ extension, wrist supination/ pronation for 10 reps each. All ROM was within patient's tolerance. Later returned to room for AROM exercises of neck including chin tucks, rotation and side bending for 10 reps. AROM of right UE performing shoulder flexion, IR /ER, elbow flexion / extension and wrist flexion / extension for 10 reps each. PROM of bilateral LEs including hip flexion, abd/ adduction, knee flexion/ extensio and ankle dorsi/ plantarflexion for 10 reps each ASSESSMENT: Tolerated all activity very well with good effort given with UE and neck exercises. PLAN: Continue with current plan of care for focus on mobility of extremities and neck. TREATMENT CODE/TIME: 14182 x 2, 9:10 to 9:25 (15') and 11:05 to 11:25 (20')
--- NOTE | 2021-03-30 14:17 | W.PM.PROGNOT ---
Date of Service Date of service: 03/30/21 Time of Service: 10:35 Assessment and Plan Assessment and plan (1) Neurogenic bowel: Status: Acute Assessment and plan: POD #10 s/p diverting colostomy Stoma: Superficial slough is noted. It is still edematous.. It is patent. brown, clear fluid noted in ostomy. Ostomy digitized. Patent through fascia Abdomen continues to be distended, slightly less than yesterday. Active bowel sounds this morning. Continue Reglan q 6 hours Hopefully resolution of urinary retention will decrease ileus . (2) Constipation due to neurogenic bowel: Status: Acute (3) Acute osteomyelitis of sacrum: Status: Acute Assessment and plan: Continue antibiotics Cultures show sensitivity to vancomycin Antibiotics per Hospitalist team (4) Decubitus ulcer of buttock, stage 4: Status: Acute Assessment and plan: Wound vac changed Qualifiers: Laterality: left Qualified Code(s): L89.324 - Pressure ulcer of left buttock, stage 4 (5) H/O deep venous thrombosis: Status: Chronic Assessment and plan: Continue Lovenox (6) Quadriplegia: Status: Chronic (7) UTI (urinary tract infection): Status: Acute Assessment and plan: Consider sending U/A given recent urinary retention Qualifiers: Urinary tract infection type: catheter-associated UTI Indwelling urinary catheter type: indwelling urethral catheter Encounter type: initial encounter Qualified Code(s): T83.511A - Infection and inflammatory reaction due to indwelling urethral catheter, initial encounter; N39.0 - Urinary tract infection, site not specified (8) Neurogenic bladder: Status: Chronic Assessment and plan: suprapubic pereyra in place (9) Ileus: Status: Acute Assessment and plan: Active bowel sounds today (10) Hx of caloric malnutrition: Status: Acute Assessment and plan: Continue NPO. Still with significant NGT output. Conitnue TPN Subjective Subjective Patient reports: denies shortness of breath Interval history since last seen: Has been having increased cramping/tremors in upper extremities. Nursing reports dislodgement of left ischial tuberosity negative pressure wound dressing. Suprapubic catheter was replaced yesterday after urinary retention/clogged tube revealed. Exam Const General: cooperative, comfortable and no acute distress Resp Effort & Inspection: normal respiratory effort Auscultation: clear to auscultation bilaterally GI Palpation: soft, not firm and not rigid Auscultation: hypoactive bowel sounds Other: distended Extrem Other: no calf edema, SCDs in place Psych Affect: normal affect Thought Process: normal Thought Content: normal Insight: insight good Objective Last Vital Signs Temp 99.1 F 03/30/21 08:25 Pulse 80 03/30/21 08:25 Resp 16 03/30/21 08:25 BP 137/78 03/30/21 08:25 Pulse Ox 98 03/30/21 08:25 Laboratory Results - last 24 hr 03/30/21 03/30/21 03/30/21 06:40 06:40 11:30 WBC 4.77 RBC 3.17 L Hgb 8.5 L Hct 27.4 L MCV 86.4 MCH 26.8 L MCHC 31.0 L RDW 16.3 H Plt Count 284 MPV 10.4 Immature Gran % 0.4 Neutrophils % 60.6 Lymphocytes % 21.8 Monocytes % 11.3 Eosinophils % 5.5 Basophils % 0.4 Nucleated RBC % 0 Absolute Neutrophils 2.89 Absolute Lymphocytes 1.04 L Absolute Monocytes 0.54 Absolute Eosinophils 0.26 Absolute Basophils 0.02 Sodium 135 L Potassium 3.6 Chloride 106 Carbon Dioxide 26.7 Anion Gap 2.3 L BUN 21 H Creatinine 0.6 L Estimated GFR/1.73 m2 >= 60.00 Glucose 115 H Calcium 9.2 Magnesium 1.7 L Vancomycin Trough 19.8
[2021-03-30 15:35] VITALS: BP 139/80; PULSE 80; RESP 19; TEMP 37.3; O2SAT 98
[2021-03-30] MEDS: Prochlorperazine 10 MG/2 ML VIAL IVP (15:48)
[2021-03-30] MEDS: Omnipaque 350 MG/ML 100 ML BTL IJ (17:56)
[2021-03-30] MEDS: Normal Saline - Diluent 50 ML VIAL IV (17:57)
--- NOTE | 2021-03-30 19:11 | DI.VRAD_ITS ---
Addendum created by Ami Kaiser MD on 03/30/2021 7:12:16 PM EDT: I discussed case findings with Dr. Calderon 03/30/2021 7:11 PM EST. Initial report created on 03/30/2021 7:11:24 PM EDT: PROCEDURE INFORMATION: Exam: CT Abdomen And Pelvis With Contrast Exam date and time: 03/30/2021 2:56 PM Age: 55 years old Clinical indication: Abdominal pain TECHNIQUE: Imaging protocol: Computed tomography of the abdomen and pelvis with contrast. Other contrast: ng tube; Other technique: GI contrast given. COMPARISON: CT ABDOMEN PELVIS WO 02/24/2021 6:03 PM FINDINGS: Tubes, catheters and devices: Nasogastric tube in place. Suprapubic catheter again seen. Pleural spaces: Mild bibasilar atelectasis with small right pleural effusion, new since prior exam. Probable right hip effusion with dystrophic calcifications unchanged. Mediastinal space: Small hiatal hernia. Liver: Normal. No mass. Gallbladder and bile ducts: Normal. No calcified stones. No ductal dilation. Pancreas: Normal. No ductal dilation. Spleen: Normal. No splenomegaly. Adrenal glands: Normal. No mass. Kidneys and ureters: Peripelvic calcification again seen. Stomach and bowel: There are multiple distended fluid-filled small and large bowel loops. Small bowel diameter exceeds 5 cm. Cecal diameter approaches 9 cm. Distended bowel extends to the afferent aspect of the ostomy with there is postsurgical change. There is a left lower quadrant ostomy with decompressed left colonic loops. It is understood the patient is approximately 10 days postop from left ostomy placement for neurogenic bowel. Appendix: No evidence of appendicitis. Intraperitoneal space: Minimal free fluid. Vasculature: Moderate atherosclerotic change present in the vasculature. Lymph nodes: Unremarkable. No enlarged lymph nodes. Urinary bladder: Unremarkable as visualized. Reproductive: Unremarkable as visualized. Bones/joints: Moderate lumbar spondylosis. Soft tissues: There is diffuse subcutaneous edema increased from previous study. IMPRESSION: 1. High-grade large bowel obstruction at the left lower quadrant level. There is concern for obstruction afferent to the ostomy with postsurgical change, possible oversewn bowel. 2. Minimal free fluid. Dictated and Authenticated by: Ami Kaiser MD. Ordering:ELA Newton MD
--- NOTE | 2021-03-30 21:05 | DI.VRAD_ITS ---
Addendum created by Ami Kaiser MD on 03/30/2021 9:46:42 PM EDT: I discussed case findings with Wale Calderon 03/30/2021 9:43 PM EST. Initial report created on 03/30/2021 9:05:45 PM EDT: PROCEDURE INFORMATION: Exam: XR Abdomen Exam date and time: 03/30/2021 8:27 PM Age: 55 years old Clinical indication: Screening exam; Other: Use of CT contrast for ostomy effectiveness; Prior surgery TECHNIQUE: Imaging protocol: XR of the abdomen. Views: Frontal supine view of the abdomen. 1 View. COMPARISON: CT ABDOMEN PELVIS W 03/30/2021 5:58 PM FINDINGS: Gastrointestinal tract: Contrast has been injected at the left lower quadrant ostomy level. There is opacified stool-filled bowel. No contrast extravasation evident. Air-fluid levels with distended bowel are seen, unopacified. Organs: There is some contrast in the urinary bladder which has been drained. Suprapubic catheter in place. Bones/joints: Unremarkable. IMPRESSION: Contrast present in fecal filled bowel. No evidence for extravasation. Afferent obstructed loops noted. Dictated and Authenticated by: Ami Kaiser MD. Ordering:EVIN Echevarria MD
--- NOTE | 2021-03-30 22:53 | W.ANESPRE ---
General Info Date of Service Date Performed: 03/30/21 Height: 6 ft 2 in Weight: 96.3 kg Body Mass Index (BMI): 27.2 Surgical Procedure: Operation Date: 03/20/21 12:20 Proposed Procedures Side Surgeon p Colostomy Diverting Bhumi Gaspar, DO Actual Procedures Side Surgeon p Colostomy Diverting Not Applicable Bhumi Gaspar, DO Pre-Op Diagnosis Post-Op Diagnosis Acute osteomyelitis of sacrum Acute osteomyelitis of sacrum Meds Allergies and Home Medications Allergies Allergy/AdvReac Type Severity Reaction Status Date / Time No Known Allergies Allergy Unverified 11/26/18 03:46 Home Medication Medication Instructions Recorded Lactobacillus acidoph-L.bulgaricus 1 tab PO TID tab 01/29/21 1 million cell tablet acetaminophen 500 mg capsule 1,000 mg PO Q8H PRN PRN cap 01/29/21 albuterol sulfate 90 mcg/actuation 2 inh INHALATION Q4H PRN 01/29/21 breath activated powder inhaler apixaban 5 mg tablet 5 mg PO BID 01/29/21 bisacodyl 10 mg rectal suppository 10 mg AL DAILY PRN 01/29/21 buspirone 10 mg tablet 10 mg PO TID tab 01/29/21 diclofenac sodium 1 % topical gel 1 applic TOPICAL Q6H PRN g 01/29/21 docusate sodium 100 mg capsule 100 mg PO BID 01/29/21 magnesium hydroxide 400 mg/5 mL 30 ml PO DAILY PRN 01/29/21 oral suspension melatonin 5 mg tablet 5 mg PO HS PRN tab 01/29/21 midodrine 2.5 mg tablet 5 mg PO BID tab 01/29/21 mirtazapine 45 mg tablet 45 mg PO QHS 01/29/21 polyethylene glycol 3350 17 17 g PO DAILY 01/29/21 gram/dose oral powder sennosides 8.6 mg capsule 17.2 mg PO BID 01/29/21 tizanidine 2 mg capsule 4 mg PO Q6H PRN cap 01/29/21 baclofen 5 mg PO Q6H PRN 02/20/21 ondansetron HCl [Zofran] 4 mg PO Q8H PRN 02/20/21 sodium phosphates [Fleet Enema] 118 ml AL PRN PRN 02/20/21 zolpidem 5 mg PO HS 02/20/21 Current Visit Medications: Current Medications Generic Name Dose Route Start Last Admin Trade Name Freq PRN Reason Stop Dose Admin Acidophilus/Pectin 1 cap 03/17/21 20:00 03/24/21 10:53 Lactobacillus Acidophilus Cap PO Not Given TID ALDEN Albuterol Sulfate 0 puff 03/17/21 15:41 Albuterol Hfa 6.7 Gm 200 Puff Inh IH Q4H PRN PRN Apixaban 5 mg 03/29/21 20:00 03/30/21 20:38 Apixaban 5 Mg Tab PO Not Given BID [facility] Ascorbic Acid 500 mg 03/17/21 20:00 03/24/21 09:54 Ascorbic Acid 500 Mg Tab PO Not Given BID [facility]DEN Baclofen 10 mg 03/25/21 16:00 03/30/21 20:38 Baclofen 10 Mg Tab PO Not Given QID [facility] Bisacodyl 10 mg 03/21/21 14:35 Bisacodyl 10 Mg Supp AL DAILY PRN PRN Bisacodyl 5 mg 03/22/21 20:00 03/22/21 19:33 Bisacodyl 5 Mg Tabec PO Not Given BID [facility] Buspirone HCl 10 mg 03/17/21 20:00 03/30/21 20:39 Buspirone 5 Mg Tab PO Not Given TID [facility] Dextrose 0 gm 03/24/21 09:45 Glucose 40% Oral Solution 15 Gm/37.5 Gm Tube PO DIRECTED PRN Dextrose/Water 0 gm 03/24/21 09:45 Dextrose 50%-Water 25 Gm/50 Ml Syr IVP DIRECTED PRN Diazepam 2.5 mg 03/30/21 10:17 Diazepam 10 Mg/2 Ml Syr IM Q4H PRN PRN muscle spasms Dimethicone/Zinc Oxide 0 gm 03/17/21 15:38 Michell Protect Cream 142 Gm Tube TP PRN PRN Diphenhydramine HCl 50 mg 03/29/21 00:00 03/29/21 21:16 Diphenhydramine 50 Mg/Ml Vial IVP 50 mg DAILY@0000 PRN Administration SLEEP Duloxetine HCl 30 mg 03/18/21 08:30 03/30/21 08:37 Duloxetine 30 Mg Cap PO 30 mg DAILY [facility] Administration Hydromorphone HCl 0.5 - 1 mg 03/24/21 09:24 03/30/21 22:37 Hydromorphone 2 Mg/Ml Vial IVP 0.5 mg Q2H PRN PRN Administration Sodium Chloride 500 mls @ 0 mls/hr 03/17/21 15:51 03/29/21 00:01 Saline 500ml Bag IV 1 mls/hr PRN PRN Administration As Directed Piperacillin Sod/Tazobactam 50 mls @ 100 mls/hr 03/22/21 12:00 03/30/21 18:43 Sod 3.375 gm/ Sodium Chloride IVPB 04/05/21 06:29 100 mls/hr Q6H ALDEN Administration Protocol Acetaminophen 1,000 mg in 100 mls @ 400 mls/hr 03/24/21 14:00 03/29/21 16:55 Ofirmev IVPB Infused Q6H PRN PRN Infusion Abdominal Pain Fat Emulsion 50 gm in 250 mls @ 31.25 mls/hr 03/25/21 08:30 03/30/21 08:35 Intralipid 20% IVPB 31.25 mls/hr DAILY [facility] Administration Sodium/Potass/Mag/Finn/Chlor/ 1,033 mls @ 85.917 mls/hr 03/25/21 17:00 03/30/21 17:36 Acetate 20 ml/ Multivitamins IV 85 mls/hr 10 ml/ Chromium/Copper/ .BY DURATION ALDEN Administration Manganese/Zinc 3 ml/ Amino Acids/Dextrose Sodium/Potass/Mag/Finn/Chlor/ 1,020 mls @ 85 mls/hr 03/25/21 17:00 03/30/21 05:03 Acetate 20 ml/ Amino Acids/ IV 85 mls/hr Dextrose .BY DURATION ALDEN Administration Dextrose/Sodium Chloride 1,000 mls @ 75 mls/hr 03/27/21 16:00 03/30/21 22:00 Dextrose 5%-0.45% Ns IV 75 mls/hr INFUSION ALDEN Administration Vancomycin/PEG/NADA/Lysine/Water 1.25 gm in 250 mls @ 166.667 mls/hr 03/30/21 14:00 03/30/21 13:06 Vancocin Injection IVPB 166.667 mls/hr Q12H [facility] Administration IV Miscellaneous Supplies 1 each 03/17/21 16:15 Iv Access IV DIRECTED [facility] Insulin Aspart 0 units 03/27/21 18:00 03/30/21 20:39 Insulin Aspart 300 Units/3 Ml Pen SC Not Given Q6H [facility] Protocol Iron/Minerals/Multivitamins 1 tab 03/18/21 08:30 03/24/21 10:55 Multivitamin W/Minerals Tab PO Not Given DAILY [facility] Lidocaine 2 patch 03/28/21 10:00 03/30/21 10:10 Lidocaine 5% Patch TP 2 patch DAILY@1000 [facility] Administration Lorazepam 0.5 - 1 mg 03/24/21 09:24 03/28/21 09:13 Lorazepam 2 Mg/Ml Vial IV 0.5 mg Q2H PRN PRN Administration Magnesium Hydroxide 30 ml 03/17/21 15:54 Milk Of Magnesia 30 Ml Cup PO DAILY PRN PRN Melatonin 6 mg 03/17/21 22:00 03/23/21 21:20 Melatonin 3 Mg Tab PO 6 mg HS ALDEN Administration Metoclopramide HCl 10 mg 03/23/21 08:00 03/30/21 21:11 Metoclopramide 10 Mg/2 Ml Vial IVP Not Given Q6H [facility] Midodrine 2.5 mg 03/17/21 20:00 03/26/21 09:35 Midodrine 2.5 Mg Tab PO 2.5 mg BID [facility] Administration Mirtazapine 30 mg 03/17/21 22:00 03/30/21 22:17 Mirtazapine 15 Mg Tab PO Not Given HS [facility] Miscellaneous 2 each 03/26/21 08:00 03/30/21 08:36 Lidocaine Patch Removal TD Not Given Q24H [facility] Miscellaneous 1 each 03/28/21 22:00 03/30/21 22:18 Patch Removal (Lidocaine Patches) TP 1 each Q24H [facility] Administration Multi-Ingredient Supplement 1 ounce 03/17/21 20:00 03/24/21 09:55 Protein Nutritional Supplement 16 Gm 1 Ounce Packet PO Not Given TID [facility] Pantoprazole Sodium 40 mg 03/24/21 09:45 03/30/21 08:35 Pantoprazole 40 Mg Vial IVP 40 mg DAILY [facility] Administration Prucalopride 2 mg 03/18/21 08:30 03/24/21 10:55 Prucalopride 2 Mg Tab PO Not Given DAILY [facility] Psyllium Hydrophilic Mucilloid 1 each 03/22/21 20:00 03/23/21 10:42 Psyllium Pkt PO Not Given BID [facility] Senna/Docusate Sodium 1 tab 03/22/21 20:00 03/30/21 21:12 Sennosides/Docusate Sodium Tab PO Not Given BID ALDEN Sennosides 2 tab 03/17/21 15:56 03/19/21 20:07 Senna Tab PO 2 tab DAILY PRN PRN Administration prn Sodium Chloride 10 ml 03/17/21 15:52 03/30/21 22:37 Normal Saline Flush 10 Ml Syr IVP 10 ml PRN PRN Administration Sodium Chloride 20 ml 03/19/21 08:00 03/30/21 22:18 Normal Saline Flush 10 Ml Syr IVP 20 ml BID ALDEN Administration Sodium Chloride 50 ml 03/30/21 18:00 03/30/21 17:57 Normal Saline - Diluent 50 Ml Vial IV 50 ml .FOR DI USE ALDEN Administration Zinc Sulfate 220 mg 03/18/21 08:30 03/24/21 10:55 Zinc Sulfate 220 Mg Tab PO Not Given DAILY [facility] Zolpidem Tartrate 10 mg 03/17/21 22:00 03/30/21 22:19 Zolpidem 10 Mg Tab PO Not Given HS ALDEN PFSH Active Problems Active Problems: Problem Status Onset Code Iron deficiency anemia D50.9 Hypokalemia E87.6 Hypotension I95.9 Hx of caloric malnutrition Z86.39 Aspiration into airway T17.908A Ileus K56.7 S/P colostomy Z93.3 Neurogenic bowel K59.2 Constipation due to neurogenic bowel K59.00, K59.2 Palliative care patient Z51.5 Physician orders for life-sustaining treatment (POLST) form indicates patient wish for [id number] status Z66 DNR (do not resuscitate) Z66 Acute osteomyelitis of sacrum M46.28 Decubitus ulcer of buttock, stage 4 L89.304 H/O deep venous thrombosis Z86.718 Major depressive disorder F32.9 Quadriplegia G82.50 UTI (urinary tract infection) N39.0 Discharge planning issues Z02.9 DVT prophylaxis Z29.9 Decubitus skin ulcer L89.90 Constipation K59.00 Neurogenic bladder N31.9 Medical History Medical History (Updated 05/27/21 @ 10:55 by Jose Montoya MD) Acute embolism and thrombosis of deep vein of right lower extremity Anxiety disorder C. difficile colitis Dislocation of C6/C7 cervical vertebrae DVT (deep venous thrombosis) Fall down embankment Fusion of spine Hypotension Major depressive disorder Neurogenic bladder Quadriplegia Tobacco Smoking/Tobacco Use Status: Never Alcohol Alcohol Intake: current Alcohol intake frequency: a few times a week Substance Use Substance use: Occasionally Substance use type: marijuana Vital Signs and Lab Results Vital Signs Most Recent Vital Signs in EMR: Most Recent Vital Signs Temp Pulse Resp BP Pulse Ox 37.3 C 80 19 139/80 98 03/30/21 15:35 03/30/21 15:35 03/30/21 15:35 03/30/21 15:35 03/30/21 15:35 Point of Care Results Point of Care Results: Finger Stick Blood Glucose 109 03/30/21 18:35 Lab Results Result Diagrams: 03/30/21 06:40 03/30/21 06:40 Blood Type / Crossmatch: Patient ABO/Rh AB Positive 03/30/21 22:50 03/30/21 Antibody Screen Negative 03/30/21 22:50 03/30/21 Crossmatch See Detail 03/30/21 22:50 03/30/21 Complete Blood Count: White Blood Count 4.77 10^3/uL (4.4-10.8) 03/30/21 06:40 03/30/21 Red Blood Count 3.17 10^6/uL (4.36-5.78) L 03/30/21 06:40 03/30/21 Hemoglobin 8.5 g/dL (13.5-17.5) L 03/30/21 06:40 03/30/21 Hematocrit 27.4 % (40.0-50.0) L 03/30/21 06:40 03/30/21 Platelet Count 284 10^3/uL (130-400) 03/30/21 06:40 03/30/21 Complete Metabolic Panel: Sodium Level 135 mmol/L (136-145) L 03/30/21 06:40 03/30/21 Potassium Level 3.6 mmol/L (3.5-5.1) 03/30/21 06:40 03/30/21 Chloride Level 106 mmol/L (98-107) 03/30/21 06:40 03/30/21 Carbon Dioxide Level 26.7 mmol/L (21.0-32.0) 03/30/21 06:40 03/30/21 Blood Urea Nitrogen 21 mg/dL (7-18) H 03/30/21 06:40 03/30/21 Creatinine 0.6 mg/dL (0.70-1.30) L 03/30/21 06:40 03/30/21 Magnesium Level 1.7 mg/dL (1.8-2.4) L 03/30/21 06:40 03/30/21 Calcium Level 9.2 mg/dL (8.5-10.1) 03/30/21 06:40 03/30/21 Albumin 2.6 g/dL (3.4-5.0) L 03/29/21 06:30 03/29/21 Glucose Level 115 mg/dL (74-106) H 03/30/21 06:40 03/30/21 C-Reactive Protein 13.41 mg/dL (0.0-0.3) H 03/16/21 07:20 03/16/21 Liver Function Panel: Alanine Aminotransferase (ALT/SGPT) 135 U/L (16-63) H 03/29/21 06:30 03/29/21 Aspartate Amino Transf (AST/SGOT) 55 U/L (15-37) H 03/29/21 06:30 03/29/21 Coagulation Panel: INR International Normalized Ratio 1.0 (0.9-1.1) 03/29/21 06:30 03/29/21 Prothrombin Time 10.4 sec (9.3-11.0) 03/29/21 06:30 03/29/21 Cardiac Panel: No Data to Display Arterial Blood Gas: No Data to Display Venous Blood Gas: Venous Blood Lactate 0.7 mmol/L (0.6-1.4) 03/29/21 08:14 03/29/21 Pancreas Panel: No Data to Display Thyroid Panel: Thyroid Stimulating Hormone (TSH) 5.86 uIU/mL (0.36-3.74) H 03/16/21 07:20 03/16/21 Infectious Disease: No Data to Display Blood Cultures: No Data to Display Toxicology Panel: No Data to Display Imaging and Studies Imaging and Studies EKG Summary: 02/20: sinus rhythm. Echocardiogram Summary: 03/18/2021 Conclusion Left Ventricle : The left ventricle is normal size. The overall left ventricular systolic function appears normal. There is normal left ventricular wall thickness. Regional wall motion is not well visualized but grossly normal. The left ventricular diastolic function is normal. Right Ventricle : Right ventricle is not well visualized. Right ventricular systolic function could not be assessed. Atria : The left atrium size is normal. The right atrium size is normal. Valves: There are no hemodynamically significant valvular lesions. There is no clear evidence of endocarditis in this technically limited study. Great Vessels : The aortic root is normal in size. The ascending aorta is mildly dilated. IVC is normal in size and collapses >50% with inspiration. Please see remainder of findings for further details. Anesthesia Assessment and Plan Anesthesia History Personal History: No History of Anesthesia Complications Family History: No Family History of Anesthesia Complications Exercise Tolerance Exercise Tolerance: Metabolic Equivalents>4 Pertinent Negatives Pertinent Negatives: No Symptoms of GERD Cardiac & Pulmonary Exam Cardiac Exam: Normal S1/S2 Heart Sounds Pulmonary Exam: Clear Bilateral Breath Sounds Airway Exam Known Difficult Airway: No Mallampati Class: 1 Mouth Opening: Normal (> 3cm) Thyromental Distance: Greater than 3 cm Neck Range of Motion: Limited ROM Neck Circumference: Normal Teeth Condition: Loose or Chipped ASA Classification ASA Score: ASA 3 Emergency Case?: Yes NPO Status NPO Status: Full Stomach (NGT in place) Anesthesia Plan Resuscitation Status: DNR/DNI Suspended During Perioperative Period Anesthesia Technique: General Anesthesia Airway Planned: Endotracheal Tube Monitors Used: Standard Monitors, Arterial Line (Potential per Dr. Calderon) and Central Line (PICC in place)
[2021-03-30 23:19] VITALS: BP 135/83; PULSE 82; RESP 19; TEMP 36.8; O2SAT 99
[2021-03-30 23:50] VITALS: BMI 27.2
[2021-03-31] VITALS (90 sets, daily range): BP systolic 71–152; BP diastolic 34–93; PULSE 65–86; RESP 5–26; TEMP 36.5–36.8; TEMPC 36.6; O2SAT 92–99
[2021-03-31] MEDS: Midazolam 2 MG/2 ML VIAL 4 MG
[2021-03-31] MEDS: Ondansetron 4 MG/2 ML VIAL
[2021-03-31] MEDS: Lactated Ringers 1,000 ML 30 ML IV
[2021-03-31] MEDS: Phenylephrine 800 MCG/10 ML SYR 1600 MCG (00:10)
[2021-03-31] MEDS: Dexamethasone 4 MG/ML VIAL 8 MG (00:30)
--- NOTE | 2021-03-31 02:44 | BOWEL_PTH ---
PATIENT: Bruce Velasquez JR LOC: U#:[id number] AGE/SX: 55/M ROOM: 231 RE03/17/[address]: Boo Olson : 1965 BED: A DIS: 04/10/2021 SPEC #: [id number] RECD: 04/02/21 12:36 STATUS: SY REQ #: [id number] YUE: 03/31/21 02:[address]: Boo Olson DEPT: Surgical Specimen RECD BY: Alexa Carson ENTERED: 04/02/21 12:39 SP TYPE: Bowel OTHR DR: Michelle Pearce MD [place], Ruth InPatient Dan Wyand Tissues: 1 - BOWEL/OSTOMY STOMA 2 - BIOPSY BOWEL Procedures: GROSS AND MICRO LEVEL 3 Comments: [id number]
[2021-03-31] MEDS: Bupivacaine 0.25% Pres-Free 30 ML VIAL (03:42)
--- NOTE | 2021-03-31 05:31 | W.ANESPOSTOP ---
Postoperative Evaluation Date, Time and Location Date Performed: 03/31/21 Time Performed: 05:32 Patient Location: Intensive Care Unit Vital Signs Most Recent Imported Vital Signs: Most Recent Vital Signs Temp Pulse Resp BP Pulse Ox 36.8 C 82 19 135/83 99 03/30/21 23:19 03/30/21 23:19 03/30/21 23:19 03/30/21 23:19 03/30/21 23:19 Most Recent Vital Signs Temp Pulse Resp BP Pulse Ox 36.3 C L 71 18 110/69 95 03/20/21 09:36 03/20/21 14:09 03/20/21 09:36 03/20/21 14:09 03/20/21 14:09 Most Recent Manually Entered Vital Signs: Adult Blood Pressure: 122/58 Heart Rate: 73 Respirations: 22 Oxygen Saturation (%): 94 Temperature (C): 36.6 C Pain Score (0-10 Scale): 7 Pain Score Most Recent Pain Score: Most Recent Pain Score Pain Level 5 03/30/21 23:19 Assessment Mental Status: Awake (Alert & Oriented to Patient Baseline) Airway and Respiratory Function: Patent airway with normal (patient baseline) respiratory exam Cardiovascular Function: Hemodynamically Unstable (See Explanation) (On neosynephrine 20mcg/min) and Receiving care as an inpatient Hydration Status: Adequately Hydrated Nausea & Vomiting: No Nausea or Vomiting Pain: Pain is Moderate or Severe Postoperative Pain Management: Pain being addressed with medication Peripheral Nerve Block: Patient did not receive a nerve block
[2021-03-31] MEDS: HYDROmorphone 2 MG/ML VIAL IVP ×7 (05:39→21:30)
[2021-03-31] MEDS: DEXTROSE 5%-0.45% SALINE 1,000 ML 75 ML IV ×2 (05:52→20:29)
[2021-03-31 08:01] LABS: Abs Immature Grans 0.01 10^3/uL (0.0-0.06); Absolute Basophil Count 0.01 10^3/uL (0.0-0.2); Absolute Eosinophil Count 0.01 10^3/uL (0.0-0.7); Absolute Lymphocyte Count 0.52 10^3/uL (1.2-3.4); Absolute Monocyte Count 0.72 10^3/uL (0.1-0.8); Basophils % 0.1; Eosinophils % 0.1; HCT 28.1 % (40.0-50.0); HGB 8.7 g/dL (13.5-17.5); Immature Grans % 0.1; Lymphocytes % 7.8; MCH 26.8 pg (27.0-33.0); MCV 86.5 fL (80-95); MPV 11.2 fL (8.0-11.0); Monocytes % 10.8; Neutrophils % 81.1; Nucleated RBC 0 %; Platelet Count 243 10^3/uL (130-400); RBC 3.25 10^6/uL (4.36-5.78); RDW 16.7 % (11.8-14.1); RDW-SD 50.9 fL; WBC 6.67 10^3/uL (4.4-10.8)
[2021-03-31 08:04] LABS: Absolute Neutrophil Count 5.41 10^3/uL (1.2-6.7)
[2021-03-31 08:19] LABS: Anion Gap 9.7 mmol/L (3-11); BUN 20 mg/dL (7-18); C-Reactive Protein 3.81 mg/dL (0.0-0.3); CO2 23.3 mmol/L (21.0-32.0); CREATININE 0.7 mg/dL (0.70-1.30); Calcium 8.2 mg/dL (8.5-10.1); Chloride 104 mmol/L (98-107); Magnesium 1.6 mg/dL (1.8-2.4); Potassium 4.1 mmol/L (3.5-5.1); Sodium 137 mmol/L (136-145)
[2021-03-31 08:22] LABS: PHOSPHORUS 3.6 mg/dL (2.6-4.7)
[2021-03-31 08:25] LABS: Glucose 472 mg/dL (74-106)
--- NOTE | 2021-03-31 08:27 | W.PM.PROGNOT ---
Date of Service Date of service: 03/31/21 Time of Service: 12:00 Assessment and Plan Assessment and plan (1) Large bowel obstruction: Status: Acute Assessment and plan: s/p ex lap overnight/this am. Recovering in the ICU. Ostomy is making output. Keep NPO. Continue NGT; await further surgical recommendations. Defer wound care to surgery. Continue TPN. (2) Acute osteomyelitis of sacrum: Status: Acute Assessment and plan: Continue vancomycin until 03/31 and zosyn until 04/05. Ostomy was created to improve chances of healing. Continue wound care/wound vacs. (3) H/O deep venous thrombosis: Status: Chronic Assessment and plan: RLE. Does need repeat US to document resolution - will order. Eliquis is on hold. No SCDs to RLE. Consider heparin gtt when safe per general surgery. (4) Hypotension: Status: Acute Assessment and plan: borderline BP but asymptomatic and in horizontal position. Pain medications likely contributing. MAPs adequate. Continue monitoring in the ICU. Continue to hold midodrine. Continue IVF. Qualifiers: Hypotension type: neurogenic orthostatic hypotension Qualified Code(s): G90.3 - Multi-system degeneration of the autonomic nervous system (5) Iron deficiency anemia: Status: Acute Assessment and plan: Was on eliquis for a DVT - held for emergent surgery, but will carefully monitor H/H. Recheck H/H now. S/p venofer on this admission Monitor H/H. It did drop from 9.7 to 8.5 could be dilutional from 1000 output of NGT however will continue to monitor and give venofer if needed (6) Malnutrition following gastrointestinal surgery: Status: Acute Assessment and plan: Continue TPN (7) Constipation due to neurogenic bowel: Status: Resolved Assessment and plan: S/P diverting colostomy and now revision. At this point, appears to have good bowel function but will continue to monitor. Holding all bowel meds at this time. (8) Major depressive disorder: Status: Chronic Assessment and plan: Resume Duloxetine and Buspar when able to take PO (9) DVT prophylaxis: Status: Chronic Assessment and plan: As above - ANKITA/SCD to LLE. Consider therapeutic heparin gtt. (10) Discharge planning issues: Status: Acute Assessment and plan: Keep in ICU. Total Critical Care Time 60 minutes. Subjective Subjective Interval history since last seen: Came out of the OR at about 6 am. C/o abdominal pain and feels cold. Denies dizziness, chest pain, shortness of breath, nausea. +ostomy output (has already filled it today x 2) Exam Narrative Exam Narrative: General: Pleasant middle-aged male, shivering in bed (better after being covered with warm blankets). A&Ox3, interactive, NGT in place with greenish output HEENT: EOMI, MMM, NGT Heart: RRR, no m/r/g Lungs: CTAB Abdomen: soft, LLQ ostomy with brownish output Extremities: +2 edema B feet, symmetric, no clubbing/cyanosis Objective Last Vital Signs Temp 36.6 C 03/31/21 06:07 Pulse 78 03/31/21 06:07 Resp 17 03/31/21 06:07 BP 93/49 L 03/31/21 06:07 Pulse Ox 96 03/31/21 06:07 Laboratory Results - last 24 hr 03/30/21 03/30/21 03/30/21 11:30 22:24 22:50 WBC RBC Hgb Hct MCV MCH MCHC RDW Plt Count MPV Immature Gran % Neutrophils % Lymphocytes % Monocytes % Eosinophils % Basophils % Nucleated RBC % Absolute Neutrophils Absolute Lymphocytes Absolute Monocytes Absolute Eosinophils Absolute Basophils Sodium Potassium Chloride Carbon Dioxide Anion Gap BUN Creatinine Estimated GFR/1.73 m2 Glucose Calcium Phosphorus Magnesium C-Reactive Protein Vancomycin Trough 19.8 Patient ABO/Rh Cancelled AB Positive Antibody Screen Negative Crossmatch See Detail 03/31/21 03/31/21 03/31/21 06:35 06:35 06:35 WBC 6.67 D RBC 3.25 L Hgb 8.7 L Hct 28.1 L MCV 86.5 MCH 26.8 L MCHC 31.0 L RDW 16.7 H Plt Count 243 MPV 11.2 H Immature Gran % 0.1 Neutrophils % 81.1 Lymphocytes % 7.8 Monocytes % 10.8 Eosinophils % 0.1 Basophils % 0.1 Nucleated RBC % 0 Absolute Neutrophils 5.41 Absolute Lymphocytes 0.52 L Absolute Monocytes 0.72 Absolute Eosinophils 0.01 Absolute Basophils 0.01 Sodium 137 Potassium 4.1 Chloride 104 Carbon Dioxide 23.3 Anion Gap 9.7 BUN 20 H Creatinine 0.7 Estimated GFR/1.73 m2 >= 60.00 Glucose 472 H D Calcium 8.2 L Phosphorus 3.6 Magnesium 1.6 L C-Reactive Protein 3.81 H Vancomycin Trough Patient ABO/Rh Antibody Screen Crossmatch Objective Narrative Objective Narrative: XR abdomen flat plate 03/30/21: 1. Findings consistent with a proximal bowel obstruction. 2. Left lower quadrant ostomy is identified. Opacified stool filled bowel is noted. No contrast extravasation is present. CT abdomen/pelvis 03/30/21; Findings suspicious for high-grade large bowel obstruction which appears to be proximal to the ostomy. The patient is recently status post left ostomy for neurogenic bowel.
[2021-03-31] MEDS: Pantoprazole 40 MG VIAL IVP (09:55)
[2021-03-31] MEDS: Metoclopramide 10 MG/2 ML VIAL IVP (09:56)
[2021-03-31] MEDS: MAGNESIUM SULFATE 2 GM/50 ML BAG IVPB (09:56)
[2021-03-31] MEDS: Normal Saline Flush 10 ML SYR 20 ML IVP ×2 (09:58→19:15)
[2021-03-31] MEDS: PIPERACILLIN/TAZO 3.375 GM in Normal Saline 50 ML IVPB ×3 (09:59→20:29)
--- NOTE | 2021-03-31 10:34 | PDOC.CMPRO ---
- If Service Date Differs Date of service: 03/31/21 Time of Service: 10:34 Care Management Progress Note S/O: Per provider note, Favio had surgery early this morning to remove the large bowel obstruction which was proximal to the ostomy. He is currently in ICU for close monitoring as he recovers from the surgical procedure. He is reporting a lot of pain and discomfort. CM attempts to see him but he is asleep. CM will continue to follow. A: Favio is a 55 year old man admitted to [facility] on 02/22/21 with obstipation. He is now being treated for osteomyelitis of the sacrum and has had a colostomy. P: No change in plan. Favio will likely continue to seek placement at a different facility with the help of his family. He will follow up with their provider's plan of care. Favio will transport via ambulance coordinated by CM. CM will continue to support Favio and his family and assess for ongoing discharge concerns.
[2021-03-31 11:50] LABS: Anion Gap 11.3 mmol/L (3-11); BUN 24 mg/dL (7-18); CO2 20.7 mmol/L (21.0-32.0); CREATININE 0.8 mg/dL (0.70-1.30); Calcium 8.8 mg/dL (8.5-10.1); Chloride 107 mmol/L (98-107); Glucose 158 mg/dL (74-106); Potassium 4.5 mmol/L (3.5-5.1); Sodium 139 mmol/L (136-145)
[2021-03-31] MEDS: Apixaban 5 MG TAB PO (12:27)
[2021-03-31] MEDS: Insulin Aspart 300 UNITS/3 ML PEN SC (12:34)
[2021-03-31] MEDS: Lidocaine 5% Patch 2 PATCH TP (12:36)
[2021-03-31] MEDS: VANCOMYCIN/WATER (PEG) 1.25 GM/250 ML BAG IVPB ×2 (12:39→23:48)
--- NOTE | 2021-03-31 13:12 | PT.INNT ---
Date of service: 03/31/21 Time of Service: 13:12 PT Notes Visit Reasons: Osteo of left buttocks, UTI, Quadrapelgic Referral received for continued PT services however patient requested to hold off on doing anything as his pain level is high and he wants to rest for the next couple of days. SPEECH AND HEARING DIRECTOR Eliane is updated of patient's decision and is in agreement with patient's request. Patient is amenable to establishing a range of motion exercise program this coming week with nursing staff prior to being completely discontinued from PT. Will await another referral from hospitalist to establish a functional maintenance program as planned. Thank you for the opportunity to participate in the care of this patient. Kathy Solorio PT, DPT, CLT [facility] [place], [place]
[2021-03-31] MEDS: Normal Saline Flush 10 ML SYR (14:53)
[2021-03-31 15:02] LABS: HCT 26.6 % (40.0-50.0); HGB 8.3 g/dL (13.5-17.5)
--- NOTE | 2021-03-31 17:06 | W.PM.OP ---
Date of service: 03/31/21 Time of Service: 05:12 Operative Note Operative Note DATE OF PROCEDURE: 03/31/21 PRE-OP DIAGNOSIS: large bowel obstruction POST-OP DIAGNOSIS: same PROCEDURE: Exploratory laparotomy, bowel decompression, takedown of colostomy, creation of colostomy SURGEON: Wale Calderon RADIO INTERFERENCE TROUBLE SHOOTER: Chandrika Mondragon ANESTHESIA TYPE: Local By Surgeon and General LMA/ETT Refer to Anesthesia Record ESTIMATED BLOOD LOSS: 50 PATHOLOGY: other (1. distal ostomy site 2. afferent loop staple line) COMPLICATIONS: None Patient was transported to: ICU Patient's condition: stable Indications: This is a 55-year-old male, who recently became a quadriplegic on October 26, 2020, who has had a prolonged hospitalization. He has recently been treated for ischial tuberosity pressure ulcers, and was found to have osteomyelitis on the left. On 03/20/21, he underwent a diverting colostomy for neurogenic bowel, and to help the decubitus ulcers to heal. He has had some documentation of small stool outputs since then, but has had persistently high NG output for the last week. In discussion with the Hospitalist service, it was decided to order a CT scan abd/pel to evaluate. I received a page from the [facility] radiologist, Dr. Kaiser, and she communicated these findings: High-grade large bowel obstruction at the left lower quadrant level. There is concern for obstruction afferent to the ostomy with postsurgical change, possible oversewn bowel.: Based on this, I immediately went to evaluate the patient. I discussed what the concerns are with the patient, and he allowed me to perform a confirmatory procedure. I injected the ostomy with Gastrograffin contrast, and ordered a portable abdominal xray, to try to clarify the orientation of the ostomy. The radiology reading was: Contrast present in fecal filled bowel. No evidence for extravasation. Afferent obstructed loops noted. Due to these findings, in addition to reviewing the risks, I explained to the patient that there was a need to move expeditiously to the operating room to correct the large bowel obstruction. He demonstrated understanding and gave verbal consent. This was directly witnessed by his nurse. Findings: largely dilated and fluid-filled loops of small bowel; gas and liquid stool filled colon; sigmoid colon /efferent loop of bowel ostomized in left lower quadrant; prolene sutures on afferent loop of bowel; Procedure Description: The patient was brought from the floor to the holding area. He was identified by name and birthdate. Surgical and anesthesia consents were reviewed. He was brought into the operating room, and carefully moved over to the operating room table. Monitors were applied. His SCDs were connected and turned on. General anesthesia was induced and the patient was intubated. The left arm was tucked and protected with a sled, and the right arm was partially abducted to the side. Another time out was called and participated in by the entire OR staff. As it had been a while since his last scheduled Zosyn, Ancef 2g was given. The ostomy appliance was removed, and the abdomen was prepped with betadine solution, and draped in sterile fashion. An Ioban drape was applied. The superficial sutures of the original incision were released. The incision was extended cephalad onto undisturbed [place] tissue, up to the umbilicus. The subcuatneous tissues were carefully divided at this level down to the fascia. The fascia was elevated, and carefully incised. Once a small rent was made to obtain intra-abdominal access, a finger sweep was done to ensure no adherent abdominal contents, and then, with this guidance the de lidia and original incisions were opened in continuity. The small bowel auto-eviscerated through the wound, and it quickly became apparent that in order to be able to visualize the area of most interest in the left lower quadrant, the bowel would need to be decompressed. The small bowel was very dilated, fluid-filled, and all appeared viable.The midline incision was extended further cephalad above the umbiliicus, and the small bowel delivered through the wound. We identified the terminal ileum as it entered the cecum, and made a purse-string on the antimesenteric border ~15cm proximal to the ileocecal valve. Wet towels were placed around this isolated loop. A controlled longitudinal enterotomy was made within the pursestring, and multiple passes of Vega suction were utilized to gently decompress the small and large bowel, until it was more manageable. There was some minor spillage of stool with this procedure, that was controlled. Approximately 3200ml was aspirated. The pursestring stitch was removed, and the enterotomy was closed transversely and secured with Lembert sutures. The area was interrogated and found to be sound and patent. We changed our gloves. We set up the Omni retractor and turned our attention to the left lower quadrant. The intact ostomy was traced down, and was felt and seen to lead towards the rectosigmoid with soft stool palpable inside. This stool was milked away from the ostomy operning. Then, the descending colon was identified, and traced caudal. It was fluid-filled, and found to be adherent to the left lateral wall. There were 2 prolene sutures visualized on this piece of bowel. The mobile portion of bowel was elevated, and very carefully dissected off of the white line of Toldt. This lead to more mobility of the afferent loop, so that better visualization was achieved to release the tissue aadhering the corner of the bowel to the sidewall. This area was thoroughly visualized and palpated to ensure no important vessels, or the ureter were enclosed. This area was released and the distal portion of the afferent loop was freely mobilized. It had good length to it, and appeared it could easily be brought through the fascia to create an ostomy, and there was excellent blood flow palpable. It was a consideration to maintain the original ostomy as a mucus fistula, but in terms of long-term management, it was decided a single stoma would be easier to fit ostomy appliances, and to manage. Therefore, the aperture of the stoma was oversewn, and it was released from the skin and taken down, and passed back into the abdomen. A SABINE stapler was used to divide the bowel ~5cm proximal to the end. The staple line was oversewn, and two long prolene sutures placed. The rectosigmoid was tucked away near the sacral promontory. After releasing and slightly enlarging the ostomy site, the afferent limb was passed through. The orientation and placement was checked many times. We once again eviscerated the bowel, and starting at the cecum, ran the entire bowel to the ligament of Treitz, trying to clear any spillage, and ensuring viability. This was accomplished without concern and there were no serosal tears. We then irrigated the entire abdomen with 2L of warm saline. There was no staining, or areas of bleeding. Again, we changed our gloves. Once this was adequately accomplished, we once again assured the afferent/descending bowel loop was properly oriented in the LLQ ostomy site. The midline was then closed with a looped running PDS in standard fashion, applying local anesthestic admixture of Exparel and 0.25% marcaine throughout. The wound was irrigated, and the incision was closed with sharla. All counts of sharps and soft objects was correct before closing the skin. The wound was lightly dressed. We turned our attention to maturing the new ostomy. The staple line was taken down. No further dubulking of the bowel needed to be done. Using 3-0 Vicryl, the cardinal points of the stoma were addressed, and sutured in a standard Manda manner. Intervening sutures were then placed in between the cardinal points to secure the stoma. It continued to appear pink and viable. The stoma was digitized, and could be felt to not be too tight on the fascia, and the orientation felt correct. After changing gloves, a new midline dressing was placed, as it had become dislodged. The ostomy appliance was cut and placed over the stoma. Again, all counts were correct. The patient was awaken and extubated in the operating room, and transferred to the recovery room in stable condition. Once he was more recovered, he was transferred to the ICU, which had been pre-arranged before surgery.
[2021-03-31] MEDS: Ketorolac 30 MG/ML VIAL IVP (18:37)
[2021-03-31] MEDS: Normal Saline Flush 10 ML SYR IVP (19:16)
[2021-03-31] MEDS: ACETAMINOPHEN 1,000 MG/100 ML BTL 400 MG IVPB (20:28)
--- NOTE | 2021-03-31 23:45 | W.PM.PROGNOT ---
Date of Service Date of service: 03/31/21 Time of Service: 17:30 Assessment and Plan Assessment and plan (1) Large bowel obstruction: Status: Acute Assessment and plan: S/p ex lap, bowel decompression, takedown of ostomy, creation of ostomy earlier today stoma viable with reported output (2) Neurogenic bowel: Status: Acute Assessment and plan: . (3) Constipation due to neurogenic bowel: Status: Resolved (4) Acute osteomyelitis of sacrum: Status: Acute Assessment and plan: Continue antibiotics Cultures show sensitivity to vancomycin Antibiotics per Hospitalist team (5) Decubitus ulcer of buttock, stage 4: Status: Acute Assessment and plan: Wound vac changed Qualifiers: Laterality: left Qualified Code(s): L89.324 - Pressure ulcer of left buttock, stage 4 (6) H/O deep venous thrombosis: Status: Chronic Assessment and plan: Continue Lovenox (7) Quadriplegia: Status: Chronic (8) UTI (urinary tract infection): Status: Acute Assessment and plan: Consider sending U/A given recent urinary retention Qualifiers: Encounter type: initial encounter Indwelling urinary catheter type: indwelling urethral catheter Urinary tract infection type: catheter-associated UTI Qualified Code(s): T83.511A - Infection and inflammatory reaction due to indwelling urethral catheter, initial encounter; N39.0 - Urinary tract infection, site not specified (9) Neurogenic bladder: Status: Chronic Assessment and plan: suprapubic pereyra in place (10) Ileus: Status: Acute Assessment and plan: Active bowel sounds today (11) Hx of caloric malnutrition: Status: Acute Assessment and plan: Continue NPO. Still with significant NGT output. Conitnue TPN Subjective Subjective Patient reports: denies nausea and shortness of breath Interval history since last seen: Favio is doing okay since returning from the operating room early this morning. His abdomen remains less distended, and stoma output has been reported. However, he is having significant pain and discomfort in his shoulders. Exam Const General: cooperative and anxious Orientation: alert, awake and oriented x3 Resp Effort & Inspection: normal respiratory effort, able to speak in complete sentences, no audible wheezes and no cough GI Palpation: soft and not firm Other: soft, less distended, stoma pink and viable, midline dressing minimally soiled; Other: suprapubic catheter draining light damaso urine Neuro General: patient alert, patient awake and patient oriented x3 Other: quadriplegic Extrem Other: no calf swelling;SCDs in place; Objective Last Vital Signs Temp 97.7 F 03/31/21 19:05 Pulse 68 03/31/21 23:15 Resp 5 L 03/31/21 23:15 BP 86/41 L 03/31/21 23:15 Pulse Ox 97 03/31/21 23:15 Laboratory Results - last 24 hr 03/31/21 03/31/21 03/31/21 05:25 06:35 06:35 WBC 6.67 D RBC 3.25 L Hgb 8.7 L Hct 28.1 L MCV 86.5 MCH 26.8 L MCHC 31.0 L RDW 16.7 H Plt Count 243 MPV 11.2 H Immature Gran % 0.1 Neutrophils % 81.1 Lymphocytes % 7.8 Monocytes % 10.8 Eosinophils % 0.1 Basophils % 0.1 Nucleated RBC % 0 Absolute Neutrophils 5.41 Absolute Lymphocytes 0.52 L Absolute Monocytes 0.72 Absolute Eosinophils 0.01 Absolute Basophils 0.01 Sodium Cancelled 137 Potassium Cancelled 4.1 Chloride Cancelled 104 Carbon Dioxide Cancelled 23.3 Anion Gap Cancelled 9.7 BUN Cancelled 20 H Creatinine Cancelled 0.7 Estimated GFR/1.73 m2 Cancelled >= 60.00 Glucose Cancelled 472 H D Calcium Cancelled 8.2 L Phosphorus Magnesium 1.6 L C-Reactive Protein 3.81 H 03/31/21 03/31/21 03/31/21 06:35 11:31 14:30 WBC RBC Hgb 8.3 L Hct 26.6 L MCV MCH MCHC RDW Plt Count MPV Immature Gran % Neutrophils % Lymphocytes % Monocytes % Eosinophils % Basophils % Nucleated RBC % Absolute Neutrophils Absolute Lymphocytes Absolute Monocytes Absolute Eosinophils Absolute Basophils Sodium 139 Potassium 4.5 Chloride 107 Carbon Dioxide 20.7 L Anion Gap 11.3 H BUN 24 H Creatinine 0.8 Estimated GFR/1.73 m2 >= 60.00 Glucose 158 H D Calcium 8.8 Phosphorus 3.6 Magnesium C-Reactive Protein
[2021-04-01] VITALS (55 sets, daily range): BP systolic 82–120; BP diastolic 35–72; PULSE 59–78; RESP 4–20; TEMP 35.9–37.1; O2SAT 95–100
[2021-04-01] MEDS: HYDROmorphone 2 MG/ML VIAL IVP ×6 (00:10→14:49)
[2021-04-01] MEDS: PIPERACILLIN/TAZO 3.375 GM in Normal Saline 50 ML IVPB ×4 (01:18→19:40)
[2021-04-01] MEDS: ACETAMINOPHEN 1,000 MG/100 ML BTL 400 MG IVPB ×3 (04:53→18:32)
[2021-04-01] MEDS: Ketorolac 30 MG/ML VIAL IVP ×3 (04:54→18:29)
[2021-04-01 07:42] LABS: Abs Immature Grans 0.03 10^3/uL (0.0-0.06); Absolute Basophil Count 0.02 10^3/uL (0.0-0.2); Absolute Eosinophil Count 0.17 10^3/uL (0.0-0.7); Absolute Lymphocyte Count 0.88 10^3/uL (1.2-3.4); Absolute Monocyte Count 0.91 10^3/uL (0.1-0.8); Absolute Neutrophil Count 5.44 10^3/uL (1.2-6.7); Basophils % 0.3; Eosinophils % 2.3; HCT 23.1 % (40.0-50.0); HGB 7.3 g/dL (13.5-17.5); Immature Grans % 0.4; Lymphocytes % 11.8; MCHC 31.6 % (32.0-36.0); MCV 85.6 fL (80-95); MPV 11.2 fL (8.0-11.0); Monocytes % 12.2; Nucleated RBC 0 %; Platelet Count 207 10^3/uL (130-400); RDW 16.9 % (11.8-14.1); RDW-SD 51.3 fL; WBC 7.45 10^3/uL (4.4-10.8)
[2021-04-01 07:52] LABS: Anion Gap 7.4 mmol/L (3-11); CO2 26.6 mmol/L (21.0-32.0); Calcium 8.8 mg/dL (8.5-10.1); Chloride 105 mmol/L (98-107); Glucose 127 mg/dL (74-106); Magnesium 2.1 mg/dL (1.8-2.4); Potassium 3.6 mmol/L (3.5-5.1); Sodium 139 mmol/L (136-145)
[2021-04-01 07:59] LABS: BUN 40 mg/dL (7-18)
--- NOTE | 2021-04-01 08:29 | W.PM.PROGNOT ---
Date of Service Date of service: 04/01/21 Time of Service: 11:56 Assessment and Plan Assessment and plan (1) Large bowel obstruction: Status: Acute Assessment and plan: s/p ex lap 03/31/21. Doing better. Ok to transfer out of the ICU. Clamping NGT. Keep NPO. Defer wound care to surgery. Continue TPN. (2) Acute osteomyelitis of sacrum: Status: Acute Assessment and plan: Completed vancomycin. Continue zosyn until 04/05. Ostomy was created to improve chances of healing. Continue wound care/wound vacs. (3) H/O deep venous thrombosis: Status: Chronic Assessment and plan: RLE. Does need repeat US to document resolution - ordered for tomorrow. Eliquis is on hold. No SCDs to RLE. Consider heparin gtt when safe per general surgery (not yet) (4) Hypotension: Status: Acute Assessment and plan: borderline BP but asymptomatic and in horizontal position. Pain medications likely contributing. MAPs adequate. Continue to hold midodrine. Continue IVF. Qualifiers: Hypotension type: neurogenic orthostatic hypotension Qualified Code(s): G90.3 - Multi-system degeneration of the autonomic nervous system (5) Iron deficiency anemia: Status: Acute Assessment and plan: Was on eliquis for a DVT - held for emergent surgery. It appears he did get a dose of eliquis yesterday, but we can't confirm it. Transfusing 1 unit pRBCs today. S/p venofer on this admission Monitor H/H. (6) Malnutrition following gastrointestinal surgery: Status: Acute Assessment and plan: Continue TPN. Resume PO when ok with general surgery. (7) Constipation due to neurogenic bowel: Status: Resolved Assessment and plan: S/P diverting colostomy and now revision. At this point, appears to have good bowel function but will continue to monitor. Holding all bowel meds at this time. (8) Major depressive disorder: Status: Chronic Assessment and plan: Resume Duloxetine and Buspar when able to take PO (9) DVT prophylaxis: Status: Chronic Assessment and plan: As above - ANKITA/SCD to LLE. Consider therapeutic heparin gtt. (10) Discharge planning issues: Status: Acute Assessment and plan: Transfer out of ICU. Discussed with Dr Calderon Subjective Subjective Interval history since last seen: Slept well. He is excited that his belly is feeling better. No dizziness, chest pain, shortness of breath, nausea. Lungs diminished. No cough. On room air, good sats. BP 83/48 this am (MAP 57), real? 100/55 now. NGT - 150 cc over night (8 hrs). Ostomy - 200 cc over 8 hrs, lots of gas. Suprapubic 450 cc over 8 hrs. NGT is being clamped. Pain in the shoulders. Willing to try heat. Will get blood this morning. Consents to getting blood. No active bleeding. Exam Narrative Exam Narrative: General: Pleasant middle-aged male, in great spirits, A&Ox3, interactive, NGT in place HEENT: EOMI, MMM, NGT Heart: RRR, no m/r/g Lungs: CTAB Abdomen: soft, LLQ ostomy with brownish output Extremities: +2 edema B feet, symmetric, no clubbing/cyanosis, TEDs, SCD only to L leg Objective Last Vital Signs Temp 36.5 C 04/01/21 03:34 Pulse 65 04/01/21 07:24 Resp 11 L 04/01/21 07:24 BP 93/51 L 04/01/21 07:24 Pulse Ox 97 04/01/21 07:24 Laboratory Results - last 24 hr 03/31/21 03/31/21 03/31/21 05:25 11:31 14:30 WBC RBC Hgb 8.3 L Hct 26.6 L MCV MCH MCHC RDW Plt Count MPV Immature Gran % Neutrophils % Lymphocytes % Monocytes % Eosinophils % Basophils % Nucleated RBC % Absolute Neutrophils Absolute Lymphocytes Absolute Monocytes Absolute Eosinophils Absolute Basophils Sodium Cancelled 139 Potassium Cancelled 4.5 Chloride Cancelled 107 Carbon Dioxide Cancelled 20.7 L Anion Gap Cancelled 11.3 H BUN Cancelled 24 H Creatinine Cancelled 0.8 Estimated GFR/1.73 m2 Cancelled >= 60.00 Glucose Cancelled 158 H D Calcium Cancelled 8.8 Magnesium 04/01/21 04/01/21 06:45 06:45 WBC 7.45 RBC 2.70 L Hgb 7.3 L Hct 23.1 L MCV 85.6 MCH 27.0 MCHC 31.6 L RDW 16.9 H Plt Count 207 MPV 11.2 H Immature Gran % 0.4 Neutrophils % 73.0 Lymphocytes % 11.8 Monocytes % 12.2 Eosinophils % 2.3 Basophils % 0.3 Nucleated RBC % 0 Absolute Neutrophils 5.44 Absolute Lymphocytes 0.88 L Absolute Monocytes 0.91 H Absolute Eosinophils 0.17 Absolute Basophils 0.02 Sodium 139 Potassium 3.6 Chloride 105 Carbon Dioxide 26.6 Anion Gap 7.4 BUN 40 H D Creatinine 1.0 Estimated GFR/1.73 m2 >= 60.00 Glucose 127 H Calcium 8.8 Magnesium 2.1
[2021-04-01] MEDS: Pantoprazole 40 MG VIAL IVP (09:01)
[2021-04-01] MEDS: Normal Saline Flush 10 ML SYR 20 ML IVP ×2 (09:02→21:02)
[2021-04-01] MEDS: DEXTROSE 5%-0.45% SALINE 1,000 ML 75 ML IV ×2 (09:35→21:02)
[2021-04-01] MEDS: Lidocaine 5% Patch 2 PATCH TP (09:39)
--- NOTE | 2021-04-01 10:44 | NUR.NOTE ---
PT stated to me that he is in a lot of pain today. I offered care and PT said he was very cold and in pain. I did get serge care done, and was able to wash PTs face. PT refused a shave for face. RN aware. Nursing Note:
[2021-04-01] MEDS: diphenhydrAMINE 50 MG/ML VIAL IVP ×2 (11:58→22:37)
[2021-04-01] MEDS: Normal Saline Flush 10 ML SYR IVP ×3 (11:58→22:36)
--- NOTE | 2021-04-01 14:22 | W.PM.PROGNOT ---
Date of Service Date of service: 04/01/21 Time of Service: 11:22 Assessment and Plan Assessment and plan (1) Large bowel obstruction: Status: Acute Assessment and plan: S/p ex lap, bowel decompression, takedown of ostomy, creation of ostomy earlier today stoma viable with reported output (2) Neurogenic bowel: Status: Acute Assessment and plan: . (3) Constipation due to neurogenic bowel: Status: Resolved (4) Acute osteomyelitis of sacrum: Status: Acute Assessment and plan: Continue antibiotics Cultures show sensitivity to vancomycin Antibiotics per Hospitalist team (5) Decubitus ulcer of buttock, stage 4: Status: Acute Assessment and plan: Wound vac changed Qualifiers: Laterality: left Qualified Code(s): L89.324 - Pressure ulcer of left buttock, stage 4 (6) H/O deep venous thrombosis: Status: Chronic Assessment and plan: Continue Lovenox (7) Quadriplegia: Status: Chronic (8) UTI (urinary tract infection): Status: Acute Assessment and plan: Consider sending U/A given recent urinary retention Qualifiers: Encounter type: initial encounter Indwelling urinary catheter type: indwelling urethral catheter Urinary tract infection type: catheter-associated UTI Qualified Code(s): T83.511A - Infection and inflammatory reaction due to indwelling urethral catheter, initial encounter; N39.0 - Urinary tract infection, site not specified (9) Neurogenic bladder: Status: Chronic Assessment and plan: suprapubic pereyra in place (10) Ileus: Status: Acute Assessment and plan: Active bowel sounds today (11) Hx of caloric malnutrition: Status: Acute Assessment and plan: Continue NPO. Still with significant NGT output. Conitnue TPN Subjective Subjective Patient reports: feels better, still having pain, pain is less and afebrile Interval history since last seen: Mr. Velasquez is feeling better today. He still has pain in his shoulders, but it is improved. He slept well last night, and is in better spirits. Nursing reports decreased NG output. He has been having ostomy output. Exam Const General: cooperative and comfortable Orientation: alert, awake and oriented x3 Resp Effort & Inspection: normal respiratory effort, able to speak in complete sentences, no grunting and not labored Cardio Rate: regular rate Rhythm: regular rhythm Heart Sounds: S1 normal and S2 normal GI Inspection: incision (incision covered with dressing; slightly saturated) Palpation: soft, not firm and not rigid Other: LLQ stoma pink, viable, and functioning Abdomen image: 1. midline incision 2. midline incision 3. midline incision 4. LLQ stoma--pink, viable, functioning 5. suprapubic catheter Other: suprapubic catheter in place Back/Spine/Pelvis Other: VAC tracking pad visible on right hip Skin Other: warm, dry, no visible raes Neuro General: patient alert, patient awake and patient oriented x3 Cognition: normal cognition Speech: speech normal Other: quadriplegic Extrem Other: SCDs on place; no calf swelling Psych Mental Status: mental status grossly normal Mood: congruent mood Affect: normal affect Attitude: cooperative Thought Process: normal Thought Content: normal Insight: insight good Judgment: judgment good Objective Last Vital Signs Temp 97.0 F L 04/01/21 14:06 Pulse 70 04/01/21 14:06 Resp 20 04/01/21 14:06 BP 96/56 L 04/01/21 14:06 Pulse Ox 95 04/01/21 14:06 Laboratory Results - last 24 hr 03/30/21 03/31/21 04/01/21 22:50 14:30 06:45 WBC RBC Hgb 8.3 L Hct 26.6 L MCV MCH MCHC RDW Plt Count MPV Immature Gran % Neutrophils % Lymphocytes % Monocytes % Eosinophils % Basophils % Nucleated RBC % Absolute Neutrophils Absolute Lymphocytes Absolute Monocytes Absolute Eosinophils Absolute Basophils Sodium 139 Potassium 3.6 Chloride 105 Carbon Dioxide 26.6 Anion Gap 7.4 BUN 40 H D Creatinine 1.0 Estimated GFR/1.73 m2 >= 60.00 Glucose 127 H Calcium 8.8 Magnesium 2.1 Crossmatch See Detail 04/01/21 06:45 WBC 7.45 RBC 2.70 L Hgb 7.3 L Hct 23.1 L MCV 85.6 MCH 27.0 MCHC 31.6 L RDW 16.9 H Plt Count 207 MPV 11.2 H Immature Gran % 0.4 Neutrophils % 73.0 Lymphocytes % 11.8 Monocytes % 12.2 Eosinophils % 2.3 Basophils % 0.3 Nucleated RBC % 0 Absolute Neutrophils 5.44 Absolute Lymphocytes 0.88 L Absolute Monocytes 0.91 H Absolute Eosinophils 0.17 Absolute Basophils 0.02 Sodium Potassium Chloride Carbon Dioxide Anion Gap BUN Creatinine Estimated GFR/1.73 m2 Glucose Calcium Magnesium Crossmatch
--- NOTE | 2021-04-01 15:55 | NUR.NOTE ---
Nursing Note: Pt transferred from ICU to room 231. BP soft 90's/40's. HR reg. LS anterior clear. Wound vac on right running. Wet to dry dressing on left side. Blood ordered, ICU nurse did not run blood. Midline abd incision, dressing saturated, reinforced with telfa @ this time. call marshall within reach, oriented to room.
--- NOTE | 2021-04-01 16:02 | W.PM.PROGNOT ---
Date of Service Date of service: 04/01/21 Time of Service: 16:02 Assessment and Plan Assessment and plan (1) Iron deficiency anemia: Status: Acute Assessment and plan: He is released living blood presently. His hemoglobin had dropped significantly (2) Large bowel obstruction: Status: Acute Assessment and plan: The new colostomy has put out 3 bowel movements. Hopefully he will do better and be able to not need the NG tube (3) Acute osteomyelitis of sacrum: Status: Acute (4) H/O deep venous thrombosis: Status: Chronic Assessment and plan: Eliquis being appropriately managed (5) Major depressive disorder: Status: Chronic Assessment and plan: He seemed to be in quite good spirits today. He is enjoying his mom's visit (6) Right arm pain: Status: Acute Assessment and plan: This is an considering this was his good arm. Hopefully over the next couple days it will improve. He admits that it is feeling better today than it was yesterday. His pain medications may need to be temporarily increased Subjective Subjective Interval history since last seen: A lot has happened since I last saw Favio. His bowels continue to be obstructed. He was taken back to the OR and a new colostomy was made. It was patent he has had 3 bowel movements. He states that while in the OR his right arm had to be maneuvered. He now has more arm pain and his hand is swollen. In the past his left arm was less functioning than his right arm. Presently his right arm is quite painful and is not functioning as well as it had. He was given the explanation that during the operation they needed to move him in order for the surgeon to be by his side. His mom Jennifer is in the room. Exam Narrative Exam Narrative: He seems to be in pretty good spirits today. He feels that he is improving. He continues to have the NG tube in place and there is discharge. He is quite proud that he was able to have 3 bowel movements. Right hand is swollen. He is not able to move his deltoid. New colostomy in place Objective Last Vital Signs Temp 98.1 F 04/01/21 15:27 Pulse 71 04/01/21 15:27 Resp 16 04/01/21 15:27 BP 90/41 L 04/01/21 15:27 Pulse Ox 97 04/01/21 15:27 Laboratory Results - last 24 hr 05/29/21 05/31/21 05/31/21 22:50 06:45 06:45 WBC 7.45 RBC 2.70 L Hgb 7.3 L Hct 23.1 L MCV 85.6 MCH 27.0 MCHC 31.6 L RDW 16.9 H Plt Count 207 MPV 11.2 H Immature Gran % 0.4 Neutrophils % 73.0 Lymphocytes % 11.8 Monocytes % 12.2 Eosinophils % 2.3 Basophils % 0.3 Nucleated RBC % 0 Absolute Neutrophils 5.44 Absolute Lymphocytes 0.88 L Absolute Monocytes 0.91 H Absolute Eosinophils 0.17 Absolute Basophils 0.02 Sodium 139 Potassium 3.6 Chloride 105 Carbon Dioxide 26.6 Anion Gap 7.4 BUN 40 H D Creatinine 1.0 Estimated GFR/1.73 m2 >= 60.00 Glucose 127 H Calcium 8.8 Magnesium 2.1 Patient ABO/Rh AB Positive Antibody Screen Negative Crossmatch See Detail
--- NOTE | 2021-04-01 18:58 | PDOC.CMPRO ---
- If Service Date Differs Date of service: 04/01/21 Time of Service: 18:58 Care Management Progress Note S/O: Favio is moved out of the ICU and back onto the Med/Surg floor today. Per nursing staff note, he continues to have a lot of pain and discomfort and complains of feeling cold. Provider reports that he slept well last night and that he is having ostomy output today. His hemoglobin has dropped to 7.3. Both Dr. Zhu and Favio's mom came to visit him today. CM will continue to follow. A: Favio is a 55 year old man admitted to [facility] on 02/22/21 with obstipation. He is now being treated for osteomyelitis of the sacrum and has had a colostomy. P: No change in plan. Favio will likely continue to seek placement at a different facility with the help of his family. He will follow up with their provider's plan of care. Favio will transport via ambulance coordinated by CM. CM will continue to support Favio and his family and assess for ongoing discharge concerns.
--- NOTE | 2021-04-01 21:05 | NUR.NOTE ---
Nursing Note: when i went in to help pt to bathroom i offered to have her take a lopp, she said no due to being stiff and achy laying in bed after her nap. she did walk to the bathroom with me, using the walker and myself assisting her onto her feet.
[2021-04-02] VITALS (7 sets, daily range): BP systolic 117–164; BP diastolic 66–91; PULSE 72–83; RESP 12–21; TEMP 36.4–38; O2SAT 96–98
--- NOTE | 2021-04-02 | DI.RAD_ITS ---
Exam(s) XR ABDOMEN FLAT PLATE EXAM: 2D digital imaging was performed. CLINICAL HISTORY: abdominal distention, recent abdominal surgery. COMPARISON: CR,XR XR ABDOMEN FLAT PLATE from 03/30/2021 TECHNIQUE: Supine views of the abdomen performed. FINDINGS: BOWEL GAS PATTERN: Since the prior examination the patient has undergone and revision of the left low er quadrant ostomy. There are now skin sharla in the midline. The dilated loops of small and large bowel are seen which may represent a postoperative ileus superimposed on improved mechanical obstruc tion. CALCIFICATIONS: No radiopaque calcifications. OSSEOUS STRUCTURES: Normal for age. OTHER FINDINGS: There is a suprapubic catheter. IMPRESSION: 1. Interval left lower quadrant ostomy revision. 2. Persistent dilated loops of small and large bowel. This may in part be due to postoperative ileus . However persistent, but slightly improved mechanical obstruction should be considered. DATA REPOSITORY: RADIATION DOSE DELIVERED:
[2021-04-02] MEDS: HYDROmorphone 2 MG/ML VIAL IVP ×2 (00:31→17:48)
[2021-04-02] MEDS: Normal Saline Flush 10 ML SYR IVP ×3 (00:32→22:50)
[2021-04-02] MEDS: ACETAMINOPHEN 1,000 MG/100 ML BTL 400 MG IVPB (00:49)
[2021-04-02] MEDS: diazePAM 10 MG/2 ML SYR 2.5 MG IV ×2 (01:48→22:20)
[2021-04-02] MEDS: PIPERACILLIN/TAZO 3.375 GM in Normal Saline 50 ML IVPB ×4 (01:49→20:19)
[2021-04-02 08:00] LABS: Abs Immature Grans 0.03 10^3/uL (0.0-0.06); Absolute Basophil Count 0.02 10^3/uL (0.0-0.2); Absolute Eosinophil Count 0.31 10^3/uL (0.0-0.7); Absolute Lymphocyte Count 0.91 10^3/uL (1.2-3.4); Absolute Monocyte Count 0.77 10^3/uL (0.1-0.8); Basophils % 0.3; Eosinophils % 4.7; HCT 25.5 % (40.0-50.0); HGB 8.1 g/dL (13.5-17.5); Immature Grans % 0.5; Lymphocytes % 13.9; MCH 26.6 pg (27.0-33.0); MCHC 31.8 % (32.0-36.0); MCV 83.9 fL (80-95); MPV 11.3 fL (8.0-11.0); Monocytes % 11.8; Neutrophils % 68.8; Nucleated RBC 0 %; Platelet Count 219 10^3/uL (130-400); RBC 3.04 10^6/uL (4.36-5.78); RDW 16.9 % (11.8-14.1); RDW-SD 51.3 fL; WBC 6.54 10^3/uL (4.4-10.8)
[2021-04-02 08:03] LABS: Anion Gap 7.5 mmol/L (3-11); BUN 27 mg/dL (7-18); CO2 26.5 mmol/L (21.0-32.0); CREATININE 0.7 mg/dL (0.70-1.30); Calcium 8.6 mg/dL (8.5-10.1); Chloride 107 mmol/L (98-107); Glucose 104 mg/dL (74-106); Magnesium 1.8 mg/dL (1.8-2.4); Potassium 3.6 mmol/L (3.5-5.1); Sodium 141 mmol/L (136-145)
--- NOTE | 2021-04-02 08:08 | PGE_ITS ---
Date of Service Date of service: 04/02/21 Time of Service: 08:08 Assessment and Plan Assessment and plan (1) Large bowel obstruction: Status: Acute Assessment and plan: POD #2 s/p ex lap, bowel decompression, takedown of ostomy, creation of ostomy earlier today Stoma is pink, slightly edematous Liquid brown stool noted in colostomy bag. Abdomen is soft Will continue with ice chips and slowly progress his diet. (2) Neurogenic bowel: Status: Acute Assessment and plan: . (3) Constipation due to neurogenic bowel: Status: Resolved (4) Acute osteomyelitis of sacrum: Status: Acute Assessment and plan: Continue antibiotics Cultures show sensitivity to vancomycin Antibiotics per Hospitalist team (5) Decubitus ulcer of buttock, stage 4: Status: Acute Assessment and plan: Wound vac in place Qualifiers: Laterality: left Qualified Code(s): L89.324 - Pressure ulcer of left buttock, stage 4 (6) H/O deep venous thrombosis: Status: Chronic Assessment and plan: Continue Lovenox (7) Quadriplegia: Status: Chronic (8) UTI (urinary tract infection): Status: Acute Qualifiers: Urinary tract infection type: catheter-associated UTI Indwelling urinary catheter type: indwelling urethral catheter Encounter type: initial encounter Qualified Code(s): T83.511A - Infection and inflammatory reaction due to indwelling urethral catheter, initial encounter; N39.0 - Urinary tract infection, site not specified (9) Neurogenic bladder: Status: Chronic Assessment and plan: suprapubic pereyra in place (10) Hx of caloric malnutrition: Status: Acute Assessment and plan: Continue NPO. Still with significant NGT output. Conitnue TPN Subjective Subjective Interval history since last seen: Patient reports he slept well last night. He states that he has had a lot of stool out of his colostomy. He states he is feeling better. Exam Const General: cooperative, healthy appearing and comfortable Orientation: alert and oriented x3 Resp Effort & Inspection: normal respiratory effort, no audible wheezes and no cough GI Inspection: normal to inspection and distended Palpation: soft, no guarding and nontender Auscultation: normal bowel sounds Other: Brown liquid stool noted in his colostomy bag. Stoma is pink and slightly edematous. Objective Last Vital Signs Temp 36.7 C 04/02/21 07:57 Pulse 80 04/02/21 07:57 Resp 20 04/02/21 07:57 BP 143/83 H 04/02/21 07:57 Pulse Ox 97 04/02/21 07:57 Laboratory Results - last 24 hr 03/30/21 04/02/21 04/02/21 22:50 06:24 06:24 WBC Cancelled RBC Cancelled Hgb Cancelled Hct Cancelled MCV Cancelled MCH Cancelled MCHC Cancelled RDW Cancelled Plt Count Cancelled MPV Cancelled Immature Gran % Cancelled Neutrophils % Cancelled Band Neutrophils % Cancelled Lymphocytes % Cancelled Atypical Lymphs % Cancelled Monocytes % Cancelled Eosinophils % Cancelled Basophils % Cancelled Metamyelocytes % Cancelled Myelocytes % Cancelled Promyelocytes % Cancelled Other Cells % Cancelled Nucleated RBC % Cancelled Absolute Neutrophils Cancelled Absolute Lymphocytes Cancelled Absolute Monocytes Cancelled Absolute Eosinophils Cancelled Absolute Basophils Cancelled RBC Morphology Cancelled Polychromasia Cancelled Hypochromasia Cancelled Poikilocytosis Cancelled Basophilic Stippling Cancelled Anisocytosis Cancelled Microcytosis Cancelled Macrocytosis Cancelled Spherocytes Cancelled Tear Drop Cells Cancelled Ovalocytes Cancelled Stomatocytes Cancelled Luis-[place] Tract Bodies Cancelled [place] Cells/Echinocytes Cancelled Acanthocytes (Spur) Cancelled Schistocytes Cancelled Sodium Cancelled Potassium Cancelled Chloride Cancelled Carbon Dioxide Cancelled Anion Gap Cancelled BUN Cancelled Creatinine Cancelled Estimated GFR/1.73 m2 Cancelled Glucose Cancelled Calcium Cancelled Magnesium Cancelled Patient ABO/Rh AB Positive Antibody Screen Negative Crossmatch See Detail 04/02/21 07:30 WBC 6.54 RBC 3.04 L Hgb 8.1 L Hct 25.5 L MCV 83.9 MCH 26.6 L MCHC 31.8 L RDW 16.9 H Plt Count 219 MPV 11.3 H Immature Gran % 0.5 Neutrophils % 68.8 Band Neutrophils % Lymphocytes % 13.9 Atypical Lymphs % Monocytes % 11.8 Eosinophils % 4.7 Basophils % 0.3 Metamyelocytes % Myelocytes % Promyelocytes % Other Cells % Nucleated RBC % 0 Absolute Neutrophils 4.50 Absolute Lymphocytes 0.91 L Absolute Monocytes 0.77 Absolute Eosinophils 0.31 Absolute Basophils 0.02 RBC Morphology Polychromasia Hypochromasia Poikilocytosis Basophilic Stippling Anisocytosis Microcytosis Macrocytosis Spherocytes Tear Drop Cells Ovalocytes Stomatocytes Luis-[place] Tract Bodies Dean Cells/Echinocytes Acanthocytes (Spur) Schistocytes Sodium Potassium Chloride Carbon Dioxide Anion Gap BUN Creatinine Estimated GFR/1.73 m2 Glucose Calcium Magnesium Patient ABO/Rh Antibody Screen Crossmatch
[2021-04-02] MEDS: Normal Saline Flush 10 ML SYR 20 ML IVP ×2 (09:03→20:19)
[2021-04-02] MEDS: Ketorolac 30 MG/ML VIAL IVP (09:03)
[2021-04-02] MEDS: Pantoprazole 40 MG VIAL IVP (09:03)
[2021-04-02] MEDS: DEXTROSE 5%-0.45% SALINE 1,000 ML 75 ML IV ×2 (09:10→22:49)
[2021-04-02 09:47] LABS: Prealbumin 17 mg/dL (20-40)
--- NOTE | 2021-04-02 10:02 | CMPROGNOTE_ITS ---
- If Service Date Differs Date of service: 04/02/21 Time of Service: 10:02 Care Management Progress Note S/O: Favio was laying in bed visiting with his father when CM met with him. He was smiling and stated that he is feeling a lot better. He informed CM about his emergency surgery over the weekend and reported that his ostomy is working well now. Favio also stated that the pain is his shoulders is still present, but bearable. A: Favio is a 55 year old man admitted to [facility] on 02/22/21 with obstipation. He is now being treated for osteomyelitis of the sacrum and has had a colostomy. P: No change in plan. Favio will likely continue to seek placement at a different facility with the help of his family. He will follow up with their provider's plan of care. Favio will transport via ambulance coordinated by [facility]. CM will continue to support Favio and his family and assess for ongoing di chanelrge concerns.
[2021-04-02] MEDS: Lidocaine 5% Patch 2 PATCH TP (10:10)
--- NOTE | 2021-04-02 10:12 | OTTR_ITS ---
Date of service: 04/02/21 Time of Service: 07:40 Occupational Therapy Notes Occupational Therapy Inpatient Treatment Note Date: 04/02/21 PRECAUTIONS: Fall, standard, Full SUBJECTIVE: Pt was sitting in bed when OT arrived. He states that he had a crazy weekend and ended up in emergency surgery. He notes that he is feeling better and more optimistic now that he is back out to Med Surg. His decline in medical status over the weekend was due to an abdominal surgery which he reports his abdomen feels less bloated and he is happy to report that his wounds are starting to improve as well. OBJECTIVE: PAIN:no c/o pain Manual Therapy [id number]: OT performed joint blocking techniques and manual mobilization to pts (B) UE at MP, IP and DIP as well as PROM to pts (B) thumbs into flexion. He is tolerating this well and with use of tool OT performed IASTM with down regulation on dorsal aspect of digits with soreness in his (L) thumb which could be nerve related. OT passively mobilized pts (B) wrists into flexion and extension which he had some pain at end ranges. Pts (R) UE is swollen, he hasn't worn his braces since thursday. His (L) is tender to palpation with increased stiffness throughout which is painful to him. Functionally OT then educated and trained pt in grasp and release patterns which he requires mod (A) with at this time. His hand remain in less of a contracted position. He is on hold for eating but once he is back plan will be to progress his functional (I) At that time. OT will continue to monitor this. ASSESSMENT/PLAN: Pt is doing better, he is sore and unable to tolerate a lot of AROM of his digits but has increased edema. Goal is to continue to progress his functional (I) with his (B) UE. TREATMENT CODES/TIME: [id number], 20 minutes (07:40) Michelle Pearce OTR/L [facility]
--- NOTE | 2021-04-02 16:40 | NT_ITS ---
Date of service: 04/02/21 Time of Service: 16:40 PT Notes Visit Reasons: Osteo of left buttocks, UTI, Quadrapelgic Patient converted to ICU level of care on 04/01/2021 with PT referral sent the same day. Patient wants to keep initially agreed upon re-evaluation date of 04/03/2021 as he states that his pain level on the shoulder is 6/10 at rest and really wants to take everything easy today. Remaining PT skill to be done is caregiver/nursing staff training for B LE PROM and review of AROM exercises to B UE joints with patient. L shoulder pain is currently managed with Lidocaine patches. Will plan on evaluating patient on 04/03/2021 and coordinate with hospitalist for plan of care. Thank you for the opportunity to participate in the care of this patient. Kathy Solorio PT, DPT, CLT [facility] [place], [place]
[2021-04-02] MEDS: Metoclopramide 10 MG/2 ML VIAL 20 MG IVP (17:47)
--- NOTE | 2021-04-02 18:20 | W.PM.PROGNOT ---
Date of Service Date of service: 04/02/21 Time of Service: 16:30 Assessment and Plan Assessment and plan (1) Large bowel obstruction: Status: Acute Assessment and plan: s/p ex lap 03/31/21. Distended today. NGT pulled out yesterday - Flat plate ordered. Defer diet to surgery. Continue TPN. (2) Fever: Status: Acute Assessment and plan: Continue zosyn. Monitor blood/urine C&S. I suspect source is intraabdominal. No evidence of PNA clinically. (3) Acute osteomyelitis of sacrum: Status: Acute Assessment and plan: Completed vancomycin. Continue zosyn until 04/05. Ostomy was created to improve chances of healing. Continue wound care/wound vacs. (4) H/O deep venous thrombosis: Status: Chronic Assessment and plan: RLE. Does need repeat US to document resolution - ordered for tomorrow. Eliquis is on hold. No SCDs to RLE. Consider heparin gtt when safe per general surgery (not yet) (5) Hypotension: Status: Acute Assessment and plan: borderline BP but asymptomatic and in horizontal position. Pain medications likely contributing. MAPs adequate. Continue to hold midodrine. Continue IVF. Qualifiers: Hypotension type: neurogenic orthostatic hypotension Qualified Code(s): G90.3 - Multi-system degeneration of the autonomic nervous system (6) Iron deficiency anemia: Status: Acute Assessment and plan: Was on eliquis for a DVT - held for emergent surgery. s/p 1 unit pRBCs 04/01/21. Since then, H/H stable. S/p venofer on this admission Monitor H/H. (7) Malnutrition following gastrointestinal surgery: Status: Acute Assessment and plan: Continue TPN. Resume PO when ok with general surgery. (8) Constipation due to neurogenic bowel: Status: Resolved Assessment and plan: S/P diverting colostomy and now revision. Will be important to have an aggressive bowel regimen. (9) Major depressive disorder: Status: Chronic Assessment and plan: Resume Duloxetine and Buspar when able to take PO (10) DVT prophylaxis: Status: Chronic Assessment and plan: As above - ANKITA/SCD to LLE. Consider therapeutic heparin gtt. (11) Discharge planning issues: Status: Acute Assessment and plan: Continues to require hospitalization. DNR/DNI. Subjective Subjective Interval history since last seen: Mr Velasquez is concerned about his abdominal distention. It was not like this yesterday. This morning he had a hard time moving his right arm/shoulder, but it is moving now. He denies dizziness, chest pain, shortness of breath, nausea, pain. His ostomy has output. Exam Narrative Exam Narrative: General: Pleasant middle-aged male, A&Ox3, no NGT today HEENT: EOMI, MMM, Heart: RRR, no m/r/g Lungs: CTAB Abdomen: soft, significantly more distended today than yesterday; I did not hear bowel sounds. +output in the ostomy. nontender. Extremities: +2 edema B feet, symmetric, no clubbing/cyanosis, TEDs, SCD only to L leg Objective Last Vital Signs Temp 38 C H 04/02/21 16:05 Pulse 78 04/02/21 16:05 Resp 19 04/02/21 16:05 BP 164/91 H 04/02/21 16:05 Pulse Ox 97 04/02/21 16:05 Laboratory Results - last 24 hr 03/30/21 04/02/21 04/02/21 06:40 06:24 06:24 WBC Cancelled RBC Cancelled Hgb Cancelled Hct Cancelled MCV Cancelled MCH Cancelled MCHC Cancelled RDW Cancelled Plt Count Cancelled MPV Cancelled Immature Gran % Cancelled Neutrophils % Cancelled Band Neutrophils % Cancelled Lymphocytes % Cancelled Atypical Lymphs % Cancelled Monocytes % Cancelled Eosinophils % Cancelled Basophils % Cancelled Metamyelocytes % Cancelled Myelocytes % Cancelled Promyelocytes % Cancelled Other Cells % Cancelled Nucleated RBC % Cancelled Absolute Neutrophils Cancelled Absolute Lymphocytes Cancelled Absolute Monocytes Cancelled Absolute Eosinophils Cancelled Absolute Basophils Cancelled RBC Morphology Cancelled Polychromasia Cancelled Hypochromasia Cancelled Poikilocytosis Cancelled Basophilic Stippling Cancelled Anisocytosis Cancelled Microcytosis Cancelled Macrocytosis Cancelled Spherocytes Cancelled Tear Drop Cells Cancelled Ovalocytes Cancelled Stomatocytes Cancelled Luis-[place] Bodies Cancelled Dean Cells/Echinocytes Cancelled Acanthocytes (Spur) Cancelled Schistocytes Cancelled Sodium Cancelled Potassium Cancelled Chloride Cancelled Carbon Dioxide Cancelled Anion Gap Cancelled BUN Cancelled Creatinine Cancelled Estimated GFR/1.73 m2 Cancelled Glucose Cancelled Calcium Cancelled Magnesium Cancelled Prealbumin 17 L 04/02/21 04/02/21 07:30 07:30 WBC 6.54 RBC 3.04 L Hgb 8.1 L Hct 25.5 L MCV 83.9 MCH 26.6 L MCHC 31.8 L RDW 16.9 H Plt Count 219 MPV 11.3 H Immature Gran % 0.5 Neutrophils % 68.8 Band Neutrophils % Lymphocytes % 13.9 Atypical Lymphs % Monocytes % 11.8 Eosinophils % 4.7 Basophils % 0.3 Metamyelocytes % Myelocytes % Promyelocytes % Other Cells % Nucleated RBC % 0 Absolute Neutrophils 4.50 Absolute Lymphocytes 0.91 L Absolute Monocytes 0.77 Absolute Eosinophils 0.31 Absolute Basophils 0.02 RBC Morphology Polychromasia Hypochromasia Poikilocytosis Basophilic Stippling Anisocytosis Microcytosis Macrocytosis Spherocytes Tear Drop Cells Ovalocytes Stomatocytes Luis-[place] Bodies [place] Cells/Echinocytes Acanthocytes (Spur) Schistocytes Sodium 141 Potassium 3.6 Chloride 107 Carbon Dioxide 26.5 Anion Gap 7.5 BUN 27 H D Creatinine 0.7 Estimated GFR/1.73 m2 >= 60.00 Glucose 104 Calcium 8.6 Magnesium 1.8 Prealbumin
--- NOTE | 2021-04-02 18:24 | DI.VRAD_ITS ---
Addendum created by Lucie Holm MD on 04/02/2021 7:19:39 PM EDT: The patient has undergone interval revision of the left lower quadrant ostomy. Therefore, the above dilated loops of small bowel likely representing a combination of a postoperative ileus superimposed on a slightly improved mechanical obstruction. Persistent moderate to severe anasarca is seen throughout the soft tissues of the abdomen and thighs. THIS REPORT CONTAINS FINDINGS THAT MAY BE CRITICAL TO PATIENT CARE. The findings were verbally communicated via telephone conference with DR. PARDO at 7:15 PM EDT on 04/02/2021. The findings were acknowledged and understood. Initial report created on 04/02/2021 6:24:34 PM EDT: PROCEDURE INFORMATION: Exam: XR Abdomen Exam date and time: 04/02/2021 4:45 PM Age: 55 years old Clinical indication: Other: Abd distention; Prior surgery; Surgery date: <1 month; Surgery type: Ostomy TECHNIQUE: Imaging protocol: XR of the abdomen. Views: Frontal supine view of the abdomen. 1 View. COMPARISON: CR XR ABDOMEN FLAT PLATE 03/30/2021 8:40 PM FINDINGS: Gastrointestinal tract: Contrast remains within the dilated bowel located within the pelvis, from a prior injection through the ostomy. Minimal contrast is seen within the rectum. Significantly dilated stool and air-filled colon and air-filled loops of small bowel are seen proximal to the ostomy, slightly improved. The stomach is significantly dilated with air. Bones/joints: Unremarkable. IMPRESSION: Minimal contrast is now seen within the rectum, with minimal movement of the majority of the contrast. Slightly improved, but significantly dilated air-filled stomach, small bowel and colon are seen proximal to the ostomy, consistent with a slightly improved, but persistent high-grade bowel obstruction at the level of the ostomy. Dictated and Authenticated by: Lucie Holm MD. Ordering:ELA Newton MD
[2021-04-02] MEDS: diphenhydrAMINE 50 MG/ML VIAL IVP (22:22)
[2021-04-03] VITALS (13 sets, daily range): BP systolic 135–164; BP diastolic 76–95; PULSE 64–74; RESP 12–19; TEMP 35.9–37.3; O2SAT 94–100
--- NOTE | 2021-04-03 | DI.US_ITS ---
Exam(s) US LOWER EXTREMITY VENOUS RT EXAM: US LOWER EXTREMITY VENOUS RT CLINICAL HISTORY: follow up known DVT for resolution TECHNIQUE: Right lower extremity venous ultrasound performed using grayscale, color-flow, and spectr al Doppler analysis. COMPARISON: No exams were available for comparison FINDINGS: The right common femoral profunda and popliteal veins demonstrate normal compressibility, augmentatio n, and color Doppler. Hypoechoic thrombus is seen throughout the length of the femoral vein. The pos terior tibial veins are patent. The saphenofemoral junction is unremarkable. There is no evidence o f a Downs cyst. The soft tissues are unremarkable. IMPRESSION: Right femoral vein DVT. DATA REPOSITORY:
--- NOTE | 2021-04-03 | DI.RAD_ITS ---
Exam(s) XR ABDOMEN FLAT PLATE EXAM: 2D digital imaging was performed. CLINICAL HISTORY: ileus, vomiting. COMPARISON: CR,XR XR ABDOMEN FLAT PLATE from 04/02/2021 TECHNIQUE: Supine views of the abdomen performed. FINDINGS: The visualized lung bases are clear. There are unchanged dilated loops of small and large bowel pres ent. There is residual contrast seen in bowel loops in the pelvis. Skin sharla are seen in the mid line. Degenerative changes are seen in the spine. IMPRESSION: DATA REPOSITORY: RADIATION DOSE DELIVERED:
[2021-04-03] MEDS: Metoclopramide 10 MG/2 ML VIAL 20 MG IVP ×3 (00:51→12:23)
[2021-04-03] MEDS: Normal Saline Flush 10 ML SYR IVP ×11 (00:51→22:06)
[2021-04-03 01:49] LABS: Bilirubin Negative (Negative); Blood Trace-lysed (Negative); Clarity Clear (Clear); Glucose Negative (Negative); Ketones Negative (Negative); Leukocyte Esterase Trace (Negative); Nitrite Negative (Negative); Urobilinogen 0.2 EU/dL (Up TO 0.2); pH 6.5 (5-8)
[2021-04-03 01:56] LABS: Bacteria Rare HPF (Negative); Crystals Negative HPF (Negative); Epithelial Cells Rare HPF (Negative); RBC 0-2 HPF (0-2)
[2021-04-03 01:57] LABS: C & S Indicated? Yes; Casts Negative LPF (Negative); Mucus Negative (Negative); Other Cells Few Yeast (Negative)
[2021-04-03] MEDS: PIPERACILLIN/TAZO 3.375 GM in Normal Saline 50 ML IVPB ×4 (02:36→20:24)
[2021-04-03] MEDS: Ondansetron 4 MG/2 ML VIAL IVP ×5 (02:37→22:05)
[2021-04-03 06:44] LABS: Abs Immature Grans 0.04 10^3/uL (0.0-0.06); Absolute Basophil Count 0.02 10^3/uL (0.0-0.2); Absolute Eosinophil Count 0.16 10^3/uL (0.0-0.7); Absolute Lymphocyte Count 0.98 10^3/uL (1.2-3.4); Absolute Monocyte Count 0.67 10^3/uL (0.1-0.8); Absolute Neutrophil Count 5.77 10^3/uL (1.2-6.7); Basophils % 0.3; Eosinophils % 2.1; HCT 26.8 % (40.0-50.0); HGB 8.6 g/dL (13.5-17.5); Immature Grans % 0.5; Lymphocytes % 12.8; MCH 27.1 pg (27.0-33.0); MCHC 32.1 % (32.0-36.0); MCV 84.5 fL (80-95); MPV 10.9 fL (8.0-11.0); Monocytes % 8.8; Neutrophils % 75.5; Nucleated RBC 0 %; Platelet Count 270 10^3/uL (130-400); RBC 3.17 10^6/uL (4.36-5.78); RDW 16.7 % (11.8-14.1); WBC 7.64 10^3/uL (4.4-10.8)
[2021-04-03 06:54] LABS: Anion Gap 6.8 mmol/L (3-11); BUN 17 mg/dL (7-18); CO2 28.2 mmol/L (21.0-32.0); CREATININE 0.6 mg/dL (0.70-1.30); Calcium 8.8 mg/dL (8.5-10.1); Chloride 107 mmol/L (98-107); Glucose 123 mg/dL (74-106); Magnesium 1.8 mg/dL (1.8-2.4); Potassium 3.5 mmol/L (3.5-5.1); Sodium 142 mmol/L (136-145)
[2021-04-03] MEDS: Pantoprazole 40 MG VIAL IVP (08:15)
[2021-04-03] MEDS: Normal Saline Flush 10 ML SYR 20 ML IVP ×2 (08:16→20:25)
--- NOTE | 2021-04-03 09:16 | W.PM.PROGNOT ---
Date of Service Date of service: 04/03/21 Time of Service: 08:02 Assessment and Plan Assessment and plan (1) Large bowel obstruction: Status: Acute Assessment and plan: POD #3 s/p ex lap, bowel decompression, takedown of ostomy, creation of ostomy earlier today Stoma is pink, edematous Light brown liquid noted in colostomy bag. Abdomen is soft, more distented today. Patient is very nausea's. Reevaluate bowel regimen. Will continue with ice chips and slowly progress his diet. (2) Neurogenic bowel: Status: Acute Assessment and plan: . (3) Constipation due to neurogenic bowel: Status: Resolved (4) Acute osteomyelitis of sacrum: Status: Acute Assessment and plan: Continue antibiotics Cultures show sensitivity to vancomycin Antibiotics per Hospitalist team (5) Decubitus ulcer of buttock, stage 4: Status: Acute Assessment and plan: Wound vac in place Qualifiers: Laterality: left Qualified Code(s): L89.324 - Pressure ulcer of left buttock, stage 4 (6) H/O deep venous thrombosis: Status: Chronic Assessment and plan: Continue Lovenox (7) Quadriplegia: Status: Chronic (8) UTI (urinary tract infection): Status: Acute Qualifiers: Urinary tract infection type: catheter-associated UTI Indwelling urinary catheter type: indwelling urethral catheter Encounter type: initial encounter Qualified Code(s): T83.511A - Infection and inflammatory reaction due to indwelling urethral catheter, initial encounter; N39.0 - Urinary tract infection, site not specified (9) Neurogenic bladder: Status: Chronic Assessment and plan: suprapubic pereyra in place (10) Hx of caloric malnutrition: Status: Acute Assessment and plan: Continue NPO. Still with significant NGT output. Conitnue TPN Subjective Subjective Interval history since last seen: Patient expresses that he has severe nausea this morning. Nsg was in the room administering Zofran. He denies pain, stating that his abdomen is distended again. Patient states that he does not want the nose hose again. Exam Const General: cooperative Orientation: alert and oriented x3 Resp Effort & Inspection: normal respiratory effort, no audible wheezes and no cough GI Palpation: soft, no guarding and nontender Percussion: no fluid wave and tympanic to percussion Auscultation: absent bowel sounds Objective Last Vital Signs Temp 36.9 C 04/03/21 08:18 Pulse 68 04/03/21 08:18 Resp 16 04/03/21 08:18 BP 148/85 H 04/03/21 08:18 Pulse Ox 100 04/03/21 08:18 Laboratory Results - last 24 hr 03/30/21 04/03/21 04/03/21 06:40 01:10 06:20 WBC RBC Hgb Hct MCV MCH MCHC RDW Plt Count MPV Immature Gran % Neutrophils % Lymphocytes % Monocytes % Eosinophils % Basophils % Nucleated RBC % Absolute Neutrophils Absolute Lymphocytes Absolute Monocytes Absolute Eosinophils Absolute Basophils Sodium 142 Potassium 3.5 Chloride 107 Carbon Dioxide 28.2 Anion Gap 6.8 BUN 17 D Creatinine 0.6 L Estimated GFR/1.73 m2 >= 60.00 Glucose 123 H Calcium 8.8 Magnesium 1.8 Prealbumin 17 L Urine Color Yellow Urine Clarity Clear Urine pH 6.5 Ur Specific [place] 1.010 Urine Protein Negative Urine Ketones Negative Urine Blood Trace-lysed H Urine Nitrite Negative Urine Bilirubin Negative Urine Urobilinogen 0.2 Ur Leukocyte Esterase Trace H Urine RBC 0-2 Urine WBC 3-5 Ur Epithelial Cells Rare Urine Crystals Negative Urine Bacteria Rare Urine Casts Negative Urine Mucus Negative Urine Other Few yeast Ur Culture Indicated? Yes Urine Glucose Negative 04/03/21 06:20 WBC 7.64 RBC 3.17 L Hgb 8.6 L Hct 26.8 L MCV 84.5 MCH 27.1 MCHC 32.1 RDW 16.7 H Plt Count 270 MPV 10.9 Immature Gran % 0.5 Neutrophils % 75.5 Lymphocytes % 12.8 Monocytes % 8.8 Eosinophils % 2.1 Basophils % 0.3 Nucleated RBC % 0 Absolute Neutrophils 5.77 Absolute Lymphocytes 0.98 L Absolute Monocytes 0.67 Absolute Eosinophils 0.16 Absolute Basophils 0.02 Sodium Potassium Chloride Carbon Dioxide Anion Gap BUN Creatinine Estimated GFR/1.73 m2 Glucose Calcium Magnesium Prealbumin Urine Color Urine Clarity Urine pH Ur Specific [place] Urine Protein Urine Ketones Urine Blood Urine Nitrite Urine Bilirubin Urine Urobilinogen Ur Leukocyte Esterase Urine RBC Urine WBC Ur Epithelial Cells Urine Crystals Urine Bacteria Urine Casts Urine Mucus Urine Other Ur Culture Indicated? Urine Glucose
[2021-04-03] MEDS: Lidocaine 5% Patch 2 PATCH TP (10:06)
[2021-04-03] MEDS: Ketorolac 30 MG/ML VIAL IVP (11:10)
--- NOTE | 2021-04-03 12:25 | OT.INIE ---
Occupational Therapy Notes Inpatient Occupational Therapy Evaluation Date: 04/03/21 Referring Doctor: Lamar Murillo MD OT Orders: Non-Urgent Precautions: Full, Fall, Standard PATIENT PROFILE/ADMITTING DIAGNOSIS: Pt is a 55 year old male who presented to the ED from SNF for the following dx of major depressive disorder, quaridplegia, UTI, decubitus skin ulcers, constipation, and neurogenic bladder. He is re-evaluated at todays session under acute level of care as he was seen for emergency surgery and transitioned back to Med Surg. Due to the fact that pt had a decline in medical care a new referral was sent for evaluation. Past Medical History: Medical History (Updated 02/20/21 @ 22:10 by Lauri Larry MD) Acute embolism and thrombosis of deep vein of right lower extremity Anxiety disorder C. difficile colitis Dislocation of C6/C7 cervical vertebrae Fall down embankment Fusion of spine Hypotension Major depressive disorder Neurogenic bladder Quadriplegia Social History/Home Situation: Pt oreviously residing at SNF where his DME needs are met. He is functionally requiring what he reports as Max (A) for everything. He can perform his eating routines although notes that its a mess for him and he gets everything all over him. He would like to have better function of his (B) UE. His hands are currently in a contracted position which is bothersome to him. Equipment owned/DME: DME needs met by [facility] SUBJECTIVE: Pt was lying in bed when OT arrived, he states that he is in pain and is uncomfortable. OBJECTIVE: General Observation: Pleasant and appropriate, abdominal swelling and sweating when OT arrived. Mental Status: A&Ox3 Pain: pain in digits in the extended position specifically IF/thumbs, pain 5/10 in abdomen, pt reports he feels like he is going to puke. ROM: RUE shoulder flexion minimal, elbow WFL, wrist extension is fair, digits in contracted position L UE shoulder flexion minimal, elbow WFL, wrist extension is fair, digits in contracted position STRENGTH: RUE Light Technician strength is weak unable to fully grasp digits LUE Light Technician strength is weak unable to fully grasp digits SENSATION: decreased sensation in (B) Manual Therapy [id number]: OT performed IASTM with down regulation and PROM to pts digits into flexion and extension which pt was able to tolerate with decreased tone and minimal pain. OT perform AP mobs to pts digits to facilitate an increased functional use of his (B) hands to be more (I) in his ADL/IADL Routines. His (L) DIP/IP joints are stiff, he has tightness in his palm. Pt is unable to tolerate a lot of mobilization today due to pain. BALANCE: Static sitting Good Dynamic Sitting Good SPECIAL TESTS: Daily Activity Limitations Standardized Measure [facility] AM -PAC ?6 clicks? Daily Activity Inpatient Short Form: Raw score: 7 Standardized score: 20.13 CMS score: 92.44% INFORMED CONSENT/EDUCATION: Pt instructed in purpose of OT Consult and plan of care. ASSESSMENT: Patient is a 55-year-old male referred to occupational therapy services with diagnosis of major depressive disorder, quaridplegia, UTI, decubitus skin ulcer, constipation, neurogenic bladder who recently under went a colostomy, aspiration of airway and is currently in ICU level of care. Patient presents with clinical signs and symptoms consistent with dx, as demonstrated by the following impairment level findings/functional limitations: Pt requires max (A) for most ADL/IADL routines, he has contracted position of his digits and decreased functional activity tolerance due to fatigue. Decreased sensation in (B) UE and inability to perform his functional mobility (I) without (A). He was discharged from [facility] level of care and is currently being seen again under acute level of care at this time due to a decline in medical status. AMPAC score 7 Patient is assessed as a High 70491 complexity based on the following: History: see above Examination: see functional limitations as noted above Presentation: evolving Decision Making: AMPAC score 7, CMS 92.44% GOALS Goals x1 week 1. Grooming- pt will be mod (I) with brushing his teeth with mod vc throughout 2. Dressing- Pt will be mod (A) with don and doffing shirt 3. Bathing- pt will be able to (I) wash his face and (B) UE 4. Pt will hold his fork and be (I) food to mouth for 1 meal per day with progression based on functional activity tolerance PLAN OF CARE/TREATMENT PLAN: 1x/day, 5 days/ week x 1week Initiate Occupational Therapy Services for bathing, dressing, grooming, toileting, eating, transfer training. DISCHARGE RECOMMENDATIONS Return to SNF vs. Home with 24 hour care givers. TREATMENT TIME/MINUTES/CODES [id number], [id number], 10 minutes (08:05) Michelle Pearce, OTR/L [facility]
--- NOTE | 2021-04-03 12:53 | W.PM.PROGNOT ---
Date of Service Date of service: 04/03/21 Time of Service: 12:53 Assessment and Plan Assessment and plan (1) Large bowel obstruction: Status: Acute Assessment and plan: s/p ex lap 03/31/21. Discussed with general surgery - yesterday's XR was showing an improvement from prior and is likely c/w an ileus. Dr Pedersen was going to discuss possible neostygmine with [facility] GI - I do not know the outcome of that conversation. Await results of XR today. Ice chips only for now. Defer diet to surgery. Continue TPN. I have added tigan and adjusted indications for ativan to include nausea/vomiting. Consider re-insertion of NGT. (2) Fever: Status: Acute Assessment and plan: None since 4 pm yesterday. Continue zosyn - consider restart of vancomycin. Monitor blood/urine C&S. I suspect source is intraabdominal. No evidence of PNA clinically. UA not c/w UTI. (3) Acute osteomyelitis of sacrum: Status: Acute Assessment and plan: Completed vancomycin. Continue zosyn until 04/05 (may have to resume vancomying and continue zosyn longer). Ostomy was created to improve chances of healing. Continue wound care/wound vacs. (4) H/O deep venous thrombosis: Status: Chronic Assessment and plan: RLE. Does need repeat US to document resolution - ordered, pending. Eliquis is on hold. No SCDs to RLE. Heparin gtt ordered. Consider heparin gtt when safe per general surgery (not yet) (5) Hypotension: Status: Resolved Qualifiers: Hypotension type: neurogenic orthostatic hypotension Qualified Code(s): G90.3 - Multi-system degeneration of the autonomic nervous system (6) Iron deficiency anemia: Status: Acute Assessment and plan: Was on eliquis for a DVT - held for emergent surgery. s/p 1 unit pRBCs 04/01/21. Since then, H/H stable. S/p venofer on this admission Monitor H/H with resumption of heparin gtt (7) Malnutrition following gastrointestinal surgery: Status: Acute Assessment and plan: Continue TPN. Resume PO when s. (8) Constipation due to neurogenic bowel: Status: Resolved Assessment and plan: S/P diverting colostomy and now revision. Will be important to have an aggressive bowel regimen. (9) Major depressive disorder: Status: Chronic Assessment and plan: Resume Duloxetine and Buspar when able to take PO (10) DVT prophylaxis: Status: Chronic Assessment and plan: As above - ANKITA/SCD to LLE. Start heparin gtt. (11) Discharge planning issues: Status: Acute Assessment and plan: Continues to require hospitalization. DNR/DNI. Subjective Subjective Interval history since last seen: Why am I so bloated? C/o nausea/vomiting. Would like to be able to get more nausea medications. C/o RLQ pain. Denies dizziness, chest pain, shortness of breath. Ostomy is putting out liquid brown output. He is very concerned and is not feeling well. When asked if he would agree to NGT if he absolutely needed to have it, he said yes. Exam Narrative Exam Narrative: General: Pleasant middle-aged male, A&Ox3, no NGT HEENT: EOMI, MMM, Heart: RRR, no m/r/g Lungs: CTAB/diminished Abdomen: soft but tense, even more distended today, + very rare hypoactive bowel sounds. +output in the ostomy (liquid brown - transparent). Tender in RLQ. Extremities: +2 edema B feet, symmetric, no clubbing/cyanosis, TEDs on BLE's, SCD only to L leg Objective Last Vital Signs Temp 37.3 C 04/03/21 12:24 Pulse 66 04/03/21 12:24 Resp 16 04/03/21 12:24 BP 151/93 H 04/03/21 12:24 Pulse Ox 98 04/03/21 12:24 Laboratory Results - last 24 hr 04/03/21 04/03/21 04/03/21 01:10 06:20 06:20 WBC 7.64 RBC 3.17 L Hgb 8.6 L Hct 26.8 L MCV 84.5 MCH 27.1 MCHC 32.1 RDW 16.7 H Plt Count 270 MPV 10.9 Immature Gran % 0.5 Neutrophils % 75.5 Lymphocytes % 12.8 Monocytes % 8.8 Eosinophils % 2.1 Basophils % 0.3 Nucleated RBC % 0 Absolute Neutrophils 5.77 Absolute Lymphocytes 0.98 L Absolute Monocytes 0.67 Absolute Eosinophils 0.16 Absolute Basophils 0.02 Sodium 142 Potassium 3.5 Chloride 107 Carbon Dioxide 28.2 Anion Gap 6.8 BUN 17 D Creatinine 0.6 L Estimated GFR/1.73 m2 >= 60.00 Glucose 123 H Calcium 8.8 Magnesium 1.8 Urine Color Yellow Urine Clarity Clear Urine pH 6.5 Ur Specific [place] 1.010 Urine Protein Negative Urine Ketones Negative Urine Blood Trace-lysed H Urine Nitrite Negative Urine Bilirubin Negative Urine Urobilinogen 0.2 Ur Leukocyte Esterase Trace H Urine RBC 0-2 Urine WBC 3-5 Ur Epithelial Cells Rare Urine Crystals Negative Urine Bacteria Rare Urine Casts Negative Urine Mucus Negative Urine Other Few yeast Ur Culture Indicated? Yes Urine Glucose Negative
[2021-04-03] MEDS: DEXTROSE 5%-0.45% SALINE 1,000 ML 75 ML IV (13:52)
[2021-04-03] MEDS: LORazepam 2 MG/ML VIAL IV (16:12)
--- NOTE | 2021-04-03 16:47 | PDOC.CMPRO ---
- If Service Date Differs Date of service: 04/03/21 Time of Service: 16:47 Care Management Progress Note S/O: Favio was laying in bed when Cm met with him. His mother was visiting as well and had several questions. This morning Kt vomited about 400 cc of brown liquid and has complained of nausea throughout the day. His abdomen is also distended. Dr. Pedersen contacted the GI service at [facility] to discuss Favio's case. They recommended that daily (or twice daily) enemas be given through Favio's ostomy and that he be started on Pyridostigmine. These additions to Favio's plan of care have been made. [facility] updated Nicki this afternoon about the changes that were being made. Nicki verbalized that she would feel more comfortable if Favio were transferred to [facility]. She specifically requested that this be done if more surgery is indicated. A: Favio is a 55 year old man admitted to [facility] on 02/22/21 with obstipation. He is now being treated for osteomyelitis of the sacrum and has had a colostomy. P: No change in plan. Favio will likely continue to seek placement at a different facility with the help of his family. He will follow up with their provider's plan of care. Favio will transport via ambulance coordinated by [facility]. [facility] will continue to support Favio and his family and assess for ongoing discharge concerns.
--- NOTE | 2021-04-03 18:02 | NUR.NOTE ---
Nursing Note: At 1755 on 04/03/21, this RN answered a call from Nicki Gonzalez, the pt.'s significant other. Nicki was updated regarding the pt.'s mentation, VS, pain level, gastrointestinal assessment (abdominal pain, bloating, distention, nausea, and vomiting), plan of care (including recommendation from surgeon to place a NG tube), etc. Nicki verbalized understanding and presented with a few questions that were answered. RN will reassess as necessary.
[2021-04-03] MEDS: HYDROmorphone 2 MG/ML VIAL IVP (20:24)
[2021-04-03 21:46] LABS: PTT Activated 53.7 sec (21.0-27.5)
[2021-04-03] MEDS: diazePAM 10 MG/2 ML SYR 2.5 MG IV (22:04)
[2021-04-03] MEDS: diphenhydrAMINE 50 MG/ML VIAL IVP (22:05)
[2021-04-04] VITALS (9 sets, daily range): BP systolic 143–173; BP diastolic 70–96; PULSE 70–79; RESP 12–74; TEMP 36.5–37.4; O2SAT 94–99
[2021-04-04] MEDS: PIPERACILLIN/TAZO 3.375 GM in Normal Saline 50 ML IVPB ×4 (02:19→20:00)
[2021-04-04] MEDS: DEXTROSE 5%-0.45% SALINE 1,000 ML 75 ML IV ×2 (05:23→19:51)
[2021-04-04 07:13] LABS: Abs Immature Grans 0.05 10^3/uL (0.0-0.06); Absolute Basophil Count 0.04 10^3/uL (0.0-0.2); Absolute Eosinophil Count 0.33 10^3/uL (0.0-0.7); Absolute Lymphocyte Count 1.23 10^3/uL (1.2-3.4); Absolute Monocyte Count 0.58 10^3/uL (0.1-0.8); Absolute Neutrophil Count 4.88 10^3/uL (1.2-6.7); Basophils % 0.6; Eosinophils % 4.6; HCT 25.9 % (40.0-50.0); HGB 8.3 g/dL (13.5-17.5); Immature Grans % 0.7; Lymphocytes % 17.3; MCH 27.2 pg (27.0-33.0); MCV 84.9 fL (80-95); MPV 11.2 fL (8.0-11.0); Monocytes % 8.2; Neutrophils % 68.6; Nucleated RBC 0 %; Platelet Count 260 10^3/uL (130-400); RBC 3.05 10^6/uL (4.36-5.78); RDW 16.5 % (11.8-14.1); RDW-SD 50.9 fL; WBC 7.11 10^3/uL (4.4-10.8)
[2021-04-04 07:18] LABS: Anion Gap 5.9 mmol/L (3-11); BUN 16 mg/dL (7-18); CO2 28.1 mmol/L (21.0-32.0); CREATININE 0.6 mg/dL (0.70-1.30); Calcium 8.7 mg/dL (8.5-10.1); Chloride 108 mmol/L (98-107); Glucose 105 mg/dL (74-106); Magnesium 1.6 mg/dL (1.8-2.4); Potassium 3.3 mmol/L (3.5-5.1); Sodium 142 mmol/L (136-145)
[2021-04-04 07:23] LABS: PTT Activated 34.8 sec (21.0-27.5)
[2021-04-04] MEDS: Normal Saline Flush 10 ML SYR IVP ×3 (09:27→22:56)
[2021-04-04] MEDS: Normal Saline Flush 10 ML SYR 20 ML IVP ×2 (09:28→19:52)
[2021-04-04] MEDS: Lidocaine 5% Patch 2 PATCH TP (09:28)
[2021-04-04] MEDS: MAGNESIUM SULFATE 2 GM/50 ML BAG IVPB ×2 (09:28→12:01)
[2021-04-04] MEDS: POTASSIUM CHLORIDE 20 MEQ/100 ML BAG 50 MEQ IVPB ×2 (09:29→12:05)
[2021-04-04] MEDS: Pantoprazole 40 MG VIAL IVP (09:30)
--- NOTE | 2021-04-04 10:01 | W.PM.PROGNOT ---
Date of Service Date of service: 04/04/21 Time of Service: 10:01 Assessment and Plan Assessment and plan (1) Large bowel obstruction: Status: Acute Assessment and plan: POD #4 s/p ex lap, bowel decompression, takedown of ostomy and new ostomy creation Stoma is pink, slightly less edematous Light brown liquid noted in colostomy bag. Has some air in the bag Abdomen is soft, slightly less distented today. Nausea has resolved since he had a bout of emesis I did discuss case with GI at [facility]. They recommende pyridostigmine TID. This was started last night. He did throw up after he got the first dose so I am not sure how much of that he was able to absorb. Also recommended enema daily. As he is only 4 days out from surgery I don't feel comfortable having the nurses do it. I did give him an enema yesterday through the ostomy. I will try it again tomorrow Continue with stool softeners he is back to NPO status. (2) Neurogenic bowel: Status: Acute Assessment and plan: . See above (3) Constipation due to neurogenic bowel: Status: Resolved Assessment and plan: As above (4) Acute osteomyelitis of sacrum: Status: Acute Assessment and plan: Continue antibiotics Cultures show sensitivity to vancomycin Antibiotics per Hospitalist team (5) Decubitus ulcer of buttock, stage 4: Status: Acute Assessment and plan: Wound vac in place Qualifiers: Laterality: left Qualified Code(s): L89.324 - Pressure ulcer of left buttock, stage 4 (6) Quadriplegia: Status: Chronic (7) UTI (urinary tract infection): Status: Acute Qualifiers: Urinary tract infection type: catheter-associated UTI Indwelling urinary catheter type: indwelling urethral catheter Encounter type: initial encounter Qualified Code(s): T83.511A - Infection and inflammatory reaction due to indwelling urethral catheter, initial encounter; N39.0 - Urinary tract infection, site not specified (8) Neurogenic bladder: Status: Chronic Assessment and plan: suprapubic pereyra in place (9) Hx of caloric malnutrition: Status: Acute Assessment and plan: Continue NPO. Still with significant NGT output. Conitnue TPN (10) Malnutrition following gastrointestinal surgery: Status: Acute (11) DVT (deep venous thrombosis): Status: Chronic Assessment and plan: US showed femoral vein thromboses. He has been started on Heparin drip I did note some bright red blood on the dressing over his midline incision Will need to watch for drop in Hgb/Hct Qualifiers: DVT location: lower extremity Affected thrombotic vein of extremity: femoral Chronicity: acute Laterality: right Qualified Code(s): I82.411 - Acute embolism and thrombosis of right femoral vein Subjective Subjective Interval history since last seen: Favio jarrett feeling well this morning. He did throw up a lot last night and felt better after that. He was able to sleep. He is having a little less pain. Still not a lot out of his ostomy Exam Const General: cooperative, comfortable and no acute distress Orientation: alert and oriented x3 HENMT Head: normocephalic and atraumatic Resp Effort & Inspection: normal respiratory effort Auscultation: clear to auscultation bilaterally Cardio Rate: regular rate Rhythm: regular rhythm Heart Sounds: no gallops, no murmurs and no rubs GI Inspection: distended Palpation: soft Auscultation: normal bowel sounds Other: midline incision- some bright red blood noted on the dressing. Patient is on Heparin infusion for DVT. Will need to watch for increased bleeding Objective Last Vital Signs Temp 99.3 F 04/04/21 08:29 Pulse 79 04/04/21 08:40 Resp 17 04/04/21 08:29 BP 143/87 H 04/04/21 08:29 Pulse Ox 94 04/04/21 08:29 Laboratory Results - last 24 hr 03/30/21 04/03/21 04/03/21 22:50 13:55 21:05 WBC RBC Hgb Hct MCV MCH MCHC RDW Plt Count MPV Immature Gran % Neutrophils % Lymphocytes % Monocytes % Eosinophils % Basophils % Nucleated RBC % Absolute Neutrophils Absolute Lymphocytes Absolute Monocytes Absolute Eosinophils Absolute Basophils APTT 22.0 53.7 H D Sodium Potassium Chloride Carbon Dioxide Anion Gap BUN Creatinine Estimated GFR/1.73 m2 Glucose Calcium Magnesium Crossmatch See Detail 04/04/21 04/04/21 04/04/21 06:25 06:25 06:25 WBC 7.11 RBC 3.05 L Hgb 8.3 L Hct 25.9 L MCV 84.9 MCH 27.2 MCHC 32.0 RDW 16.5 H Plt Count 260 MPV 11.2 H Immature Gran % 0.7 Neutrophils % 68.6 Lymphocytes % 17.3 Monocytes % 8.2 Eosinophils % 4.6 Basophils % 0.6 Nucleated RBC % 0 Absolute Neutrophils 4.88 Absolute Lymphocytes 1.23 Absolute Monocytes 0.58 Absolute Eosinophils 0.33 Absolute Basophils 0.04 APTT 34.8 H D Sodium 142 Potassium 3.3 L Chloride 108 H Carbon Dioxide 28.1 Anion Gap 5.9 BUN 16 Creatinine 0.6 L Estimated GFR/1.73 m2 >= 60.00 Glucose 105 Calcium 8.7 Magnesium 1.6 L Crossmatch
--- NOTE | 2021-04-04 10:19 | OTTR_ITS ---
Date of service: 04/04/21 Time of Service: 08:30 Occupational Therapy Notes Occupational Therapy Inpatient Treatment Note Date: 04/04/21 PRECAUTIONS: Fall, standard, Full SUBJECTIVE: Pt was sitting in bed when OT arrived. He notes that this is the first time he has slept in a long time, his pain seems better and he states that he thinks medically he is doing well. OBJECTIVE: PAIN:no c/o pain Manual Therapy [id number]: OT performed joint blocking techniques and manual mobilization to pts (B) UE at MP, IP and DIP as well as PROM to pts (B) thumbs into flexion. He is tolerating this well and with use of tool OT performed IASTM with down regulation on dorsal aspect of digits with soreness in his (L) thumb which could be nerve related. OT passively mobilized pts (B) wrists into flexion and extension which he had some pain at end ranges. Pts (B) UE is swollen, his (L) is tender again to palpation with increased stiffness. He is limited in the functional use of his (B) UE and ADLs due to his recent surgical intervention. ASSESSMENT/PLAN: Pt is doing better, he is sore and unable to tolerate a lot of AROM of his digits but has increased edema. Pt would benefit from continued OT services for ROM, adaptive equipment and use of his (B) UE. TREATMENT CODES/TIME: [id number], 15 minutes (08:30) Michelle Pearce OTR/[facility]
--- NOTE | 2021-04-04 11:27 | CMPROGNOTE_ITS ---
- If Service Date Differs Date of service: 04/04/21 Time of Service: 11:27 Care Management Progress Note S/O: Favio was laying in bed when Cm met with him. He stated that he feels like a million bucks today. He had a good night's sleep and is in less pain than he has been. CM discussed the fact there there is limited surgical coverage over the weekend and asked if Favio wanted to be transferred to [facility] or [facility]. He said he would. Dr. Murillo contacted both facilities who were unable to accept him in transfer. A: Favio is a 55 year old man admitted to [facility] on 02/22/21 with obstipation. He is now being treated for osteomyelitis of the sacrum and has had a colostomy. P: Favio will likely continue to seek placement at a different facility with the help of his family. He will follow up with their provider's plan of care. Favio will transport via ambulance coordinated by [facility]. CM will continue to support Favio and his family and assess for ongoing discharge concerns.
[2021-04-04 15:22] LABS: PTT Activated 38.6 sec (21.0-27.5)
--- NOTE | 2021-04-04 17:58 | W.PM.PROGNOT ---
Date of Service Date of service: 04/04/21 Time of Service: 14:00 Assessment and Plan Assessment and plan (1) Large bowel obstruction: Status: Acute Assessment and plan: s/p ex lap 03/31/21 for ostomy takedown and redo, complicated by a post-op ileus. Is clinically better today since initiation of pyridostigmine. Trialing sips of clears. Continue TPN. (2) Fever: Status: Resolved Assessment and plan: No fever since 04/02/21 at 16:05. Continue zosyn - consider restart of vancomycin. Monitor blood/urine C&S. I suspect source is intraabdominal. Does have osteomyelitis of L ischial tuberosity and vancomycin was recently stopped. Those cultures are polymicrobial. If respikes fever, would resume vancomycin. Doubt yeast in urine is of clinical significance as UA is not c/w UTI. No evidence of PNA clinically. (3) Acute osteomyelitis of sacrum: Status: Acute Assessment and plan: Polymicrobial. Completed vancomycin. Continue zosyn. Ostomy was created to improve chances of healing. Continue wound care/wound vacs. (4) H/O deep venous thrombosis: Status: Chronic Assessment and plan: RLE. Repeat doppler remains positive for DVT R femoral vein. Eliquis is on hold. No SCDs to RLE. Continue Heparin gtt (5) Hypotension: Status: Resolved Assessment and plan: Continue IVF. Qualifiers: Hypotension type: neurogenic orthostatic hypotension Qualified Code(s): G90.3 - Multi-system degeneration of the autonomic nervous system (6) Iron deficiency anemia: Status: Acute Assessment and plan: Was on eliquis for a DVT - held for emergent surgery. s/p 1 unit pRBCs 04/01/21. Since then, H/H stable. S/p venofer on this admission Monitor H/H with resumption of heparin gtt (7) Malnutrition following gastrointestinal surgery: Status: Acute Assessment and plan: Continue TPN. Trialing sips of clears. (8) Constipation due to neurogenic bowel: Status: Resolved Assessment and plan: S/P diverting colostomy and now revision. aggressive bowel regimen. (9) Major depressive disorder: Status: Chronic Assessment and plan: Resume Duloxetine and Buspar when able to take PO (10) DVT prophylaxis: Status: Chronic Assessment and plan: As above - ANKITA/SCD to LLE. On therapeutic heparin gtt (11) Discharge planning issues: Status: Acute Assessment and plan: Continues to require hospitalization. DNR/DNI. [place] [facility] WIll attempt again tomorrow. Declined in transfer at [facility]. Subjective Subjective Interval history since last seen: I feel the best I've felt in a long time. Vomited last night, but not so far today. Denies dizziness, chest pain, shortness of breath, nausea. Is written for surgeons to try sips of clears today. Care management and myself (on separate occasions today) both discussed with the patient that there will be general surgery coverage lapses coming up and asked him if he was interested in transfer to a facility with 24 hr general surgery coverage to which both Favio and his mother, who was in the room said yes. [facility] [place]: no beds available. [facility] transfer requested: Spoke with Dr Kulkarni, who did not accept the patient in transfer. Exam Narrative Exam Narrative: General: Pleasant middle-aged male, A&Ox3, looks to be in better spirits. HEENT: EOMI, MMM, Heart: RRR, no m/r/g Lungs: CTAB/diminished Abdomen: soft, less distended than yesterday, + bowel sounds. +output and gas in the ostomy (liquid brown - transparent). Ostomy beefy red. Extremities: +2 edema B feet, symmetric, no clubbing/cyanosis, TEDs on BLE's, SCD only to L leg Objective Last Vital Signs Temp 37.4 C 04/04/21 08:29 Pulse 79 04/04/21 08:40 Resp 17 04/04/21 08:29 BP 143/87 H 04/04/21 08:29 Pulse Ox 94 04/04/21 08:29 Laboratory Results - last 24 hr 03/30/21 04/03/21 04/04/21 22:50 21:05 06:25 WBC RBC Hgb Hct MCV MCH MCHC RDW Plt Count MPV Immature Gran % Neutrophils % Lymphocytes % Monocytes % Eosinophils % Basophils % Nucleated RBC % Absolute Neutrophils Absolute Lymphocytes Absolute Monocytes Absolute Eosinophils Absolute Basophils APTT 53.7 H D 34.8 H D Sodium Potassium Chloride Carbon Dioxide Anion Gap BUN Creatinine Estimated GFR/1.73 m2 Glucose Calcium Magnesium Crossmatch See Detail 04/04/21 04/04/21 04/04/21 06:25 06:25 14:45 WBC 7.11 RBC 3.05 L Hgb 8.3 L Hct 25.9 L MCV 84.9 MCH 27.2 MCHC 32.0 RDW 16.5 H Plt Count 260 MPV 11.2 H Immature Gran % 0.7 Neutrophils % 68.6 Lymphocytes % 17.3 Monocytes % 8.2 Eosinophils % 4.6 Basophils % 0.6 Nucleated RBC % 0 Absolute Neutrophils 4.88 Absolute Lymphocytes 1.23 Absolute Monocytes 0.58 Absolute Eosinophils 0.33 Absolute Basophils 0.04 APTT 38.6 H Sodium 142 Potassium 3.3 L Chloride 108 H Carbon Dioxide 28.1 Anion Gap 5.9 BUN 16 Creatinine 0.6 L Estimated GFR/1.73 m2 >= 60.00 Glucose 105 Calcium 8.7 Magnesium 1.6 L Crossmatch Objective Narrative Objective Narrative: Venous doppler RLE: Right femoral vein DVT.
--- NOTE | 2021-04-04 19:51 | WOUNDCONS ---
- If Service Date Differs Date of service: 04/04/21 Time of Service: 19:51 Wound Initial Evaluation Narrative: Weekly re-evaluation done one Pt today. Consent given by Pt. Wounds continue to improve, decreasing in size and improving in overall wound bed health. See last weeks photos for comparison. Tunneling is an issue in bilateral wounds. Shearing appears to be an issue, HOB should be kept lower than 30 degrees when possible. White foam used in bilateral wounds in tunnels. Continue current ordered treatment with anasept cleanser and promogran rsoa. One photo taken of right side with manual manipulation of serge wound skin to show white adherent slough in wound base. Slough has been persistent, present with each assessment over the weeks that I have been following Mr. Velasquez. Slough area slightly diminished in size from initial assessment post-operative debridement. Bone palpable directly underneath slough. Pt on heparin gtt @ this time, sharp debridement contraindicated. Will monitor slough area x1 week to ensure decrease in size of slough area. If no improvement will discuss with surgical team on how to proceed with right ischial tuberosity wound. - Wound Right Ischial Tuberosity Pressure Ulcer Stage: IV Wound Length: 2.4 cm Wound Width: 3 cm Wound Depth: 3 cm (3.8cm tunnel @ 12 o'clock. 5 cm tunnel @ 2 o'clock) Left Ischial Tuberosity Pressure Ulcer Stage: IV Wound Length: 3.5 cm Wound Width: 4.4 cm (4 cm tunnel from 11-1 o'clock) Wound Depth: 3 cm (depth measure just under ischial tuberosity bone @ 5 o'clock) - Recomendation Recomendation:: Add pieces of white foam to tunnels on bilateral wound. Physcian/Nurse Practioner Notified: No
[2021-04-04] MEDS: Docusate Sodium 100 MG CAP PO (19:52)
[2021-04-04 22:18] LABS: PTT Activated 63.8 sec (21.0-27.5)
[2021-04-04] MEDS: diazePAM 10 MG/2 ML SYR 2.5 MG IV (22:56)
[2021-04-04] MEDS: diphenhydrAMINE 50 MG/ML VIAL IVP (22:57)
[2021-04-05] VITALS (8 sets, daily range): BP systolic 120–164; BP diastolic 68–95; PULSE 74–90; RESP 18–21; TEMP 36.6–37.4; O2SAT 96–98
[2021-04-05] MEDS: LORazepam 2 MG/ML VIAL IV ×2 (00:42→22:46)
[2021-04-05] MEDS: HYDROmorphone 2 MG/ML VIAL IVP ×2 (00:46→22:30)
[2021-04-05] MEDS: Normal Saline Flush 10 ML SYR IVP ×2 (00:46→22:30)
[2021-04-05] MEDS: PIPERACILLIN/TAZO 3.375 GM in Normal Saline 50 ML IVPB ×4 (02:43→21:19)
[2021-04-05 05:36] LABS: PTT Activated 30.2 sec (21.0-27.5)
[2021-04-05] MEDS: Normal Saline Flush 10 ML SYR 20 ML IVP ×2 (07:40→21:17)
[2021-04-05] MEDS: Pantoprazole 40 MG VIAL IVP (08:09)
[2021-04-05] MEDS: Docusate Sodium 100 MG CAP PO ×3 (08:10→21:16)
--- NOTE | 2021-04-05 08:49 | W.PM.PROGNOT ---
Documented by User: KAN Da Silva 04/05/21 08:54 Date of Service Date of service: 04/05/21 Time of Service: 08:00 Assessment and Plan Assessment and plan (1) Large bowel obstruction: Status: Acute Assessment and plan: Assessment and plan: POD #5 s/p ex lap, bowel decompression, takedown of ostomy, creation of ostomy earlier today Stoma is pink, edematous Light brown liquid and air noted in colostomy bag. Increased air and stool out overnight. Abdomen is soft, more active bowel sounds today. Progressed to clear liquid diet today and will progress as tolerated. Continue with Midodrine to promote increase GI motility. (2) Neurogenic bowel: Status: Acute Subjective Subjective Interval history since last seen: Favio states that he is feeling good today and he was excited to have a clear liquid tray for breakfast. He denies any nausea or vomiting. Denies any discomfort at this time. Exam Const General: cooperative, healthy appearing and comfortable Resp Effort & Inspection: normal respiratory effort, no audible wheezes and no cough GI Inspection: normal to inspection Palpation: soft, no guarding and nontender Auscultation: hypoactive bowel sounds Other: Colostomy with air and brown colored liquid present Objective Last Vital Signs Temp 36.9 C 04/05/21 06:18 Pulse 78 04/05/21 06:18 Resp 18 04/05/21 06:18 BP 151/87 H 04/05/21 06:18 Pulse Ox 98 04/05/21 06:18 Laboratory Results - last 24 hr 04/04/21 04/04/21 04/05/21 14:45 21:45 05:09 APTT 38.6 H 63.8 H D 30.2 H D Documented by User: Elinor Pedersen MD 04/05/21 14:32
[2021-04-05 09:51] LABS: Abs Immature Grans 0.04 10^3/uL (0.0-0.06); Absolute Basophil Count 0.02 10^3/uL (0.0-0.2); Absolute Eosinophil Count 0.25 10^3/uL (0.0-0.7); Absolute Monocyte Count 0.48 10^3/uL (0.1-0.8); Absolute Neutrophil Count 4.68 10^3/uL (1.2-6.7); Basophils % 0.3; Eosinophils % 3.9; HCT 24.5 % (40.0-50.0); HGB 8.3 g/dL (13.5-17.5); Immature Grans % 0.6; Lymphocytes % 15.5; MCH 32.7 pg (27.0-33.0); MCHC 33.9 % (32.0-36.0); MCV 96.5 fL (80-95); MPV 10.7 fL (8.0-11.0); Monocytes % 7.4; Neutrophils % 72.3; Nucleated RBC 0 %; Platelet Count 220 10^3/uL (130-400); RBC 2.54 10^6/uL (4.36-5.78); RDW 17.1 % (11.8-14.1); RDW-SD 60.2 fL; WBC 6.47 10^3/uL (4.4-10.8)
[2021-04-05] MEDS: Enoxaparin 100 MG/ML SYR SC (10:13)
[2021-04-05] MEDS: DEXTROSE 5%-0.45% SALINE 1,000 ML 75 ML IV (10:19)
[2021-04-05 11:08] LABS: Anion Gap 6.3 mmol/L (3-11); BUN 15 mg/dL (7-18); CO2 25.7 mmol/L (21.0-32.0); CREATININE 0.6 mg/dL (0.70-1.30); Calcium 7.9 mg/dL (8.5-10.1); Chloride 108 mmol/L (98-107); Glucose 109 mg/dL (74-106); Magnesium 1.7 mg/dL (1.8-2.4); Potassium 3.6 mmol/L (3.5-5.1); Sodium 140 mmol/L (136-145)
--- NOTE | 2021-04-05 12:24 | PT.INNT ---
Date of service: 04/03/21 Time of Service: 15:55 PT Notes Visit Reasons: Osteo of left buttocks, UTI, Quadrapelgic Revisited plan of working with nursing staff for passive range of motion training for the lower extremities with patient for this session. Patient states that moving his legs cause some uncomfortable spasms that make him want to puke. He does not feel well today and would like to hold off on anything. Will continue to follow up with patient regarding above training plan. Patient has room exercises for his upper extremities that he tries to do at least once/twice a day. No skilled services provided thus far. Will request another order from hospitalist once patient agrees to starting functional maintenance program. Will also coordinate with nurse educator for establishment of said program. Thank you for the opportunity to participate in the care of this patient. Kathy Solorio PT, DPT, CLT [facility] [place], [place]
--- NOTE | 2021-04-05 12:53 | W.NUTRFU ---
Date of service: 04/05/21 Time of Service: 12:53 Nutritional Follow up NOTE: Met with Ron today after lunch. Continues on TPN, diet advanced to clear liquids today. He completed lunch clear liquid tray and feels well. Most current prealbumin unchanged from 02/27/21 but continues to be in low range. Recommend keeping TPN running over weekend and if continues to be able to tolerate diet, taper TPN as po intake increases. Time Spent in Nutritional Counseling and Treatment: 15 min
--- NOTE | 2021-04-05 16:20 | W.PM.PROGNOT ---
Date of Service Date of service: 04/05/21 Time of Service: 11:00 Assessment and Plan Assessment and plan (1) Large bowel obstruction: Status: Resolved Assessment and plan: s/p ex lap 03/31/21 for ostomy takedown and redo, complicated by a post-op ileus, which is now resolving. Patient is tolerating clear liquids. Continue pyridostigmine. Continue TPN, though this can likely be stopped in the next 24 hrs once the patient is permitted a more calorie-dense diet and tolerates it. (2) Fever: Status: Resolved Assessment and plan: No fever since 04/02/21 at 16:05. Continue zosyn. Would not restart vancomycin at this time. Monitor blood/urine C&S. I suspect source is intraabdominal. Does have osteomyelitis of L ischial tuberosity and vancomycin was recently stopped. Those cultures are polymicrobial. If respikes fever, would resume vancomycin. Doubt yeast in urine is of clinical significance as UA is not c/w UTI. No evidence of PNA clinically. (3) Acute osteomyelitis of sacrum: Status: Acute Assessment and plan: Polymicrobial. Completed vancomycin. Continue zosyn. Ostomy was created to improve chances of healing. Continue wound care/wound vacs. Would certainly benefit form having hyperbaric therapy - would benefit from being transferred to [facility] for this as well. (4) H/O deep venous thrombosis: Status: Chronic Assessment and plan: RLE. Repeat doppler remains positive for DVT R femoral vein. Eliquis is on hold. No SCDs to RLE. Switched to lovenox from heparin gtt. Monitor abdominal incision - the nurses do note that it is weeping sanguenous fluid. (5) Hypotension: Status: Resolved Assessment and plan: Continue IVF. Qualifiers: Hypotension type: neurogenic orthostatic hypotension Qualified Code(s): G90.3 - Multi-system degeneration of the autonomic nervous system (6) Iron deficiency anemia: Status: Acute Assessment and plan: Was on eliquis for a DVT - held for emergent surgery. s/p 1 unit pRBCs 04/01/21. Since then, H/H stable. S/p venofer on this admission Monitor H/H with resumption anticoagulation (eliquis) (7) Malnutrition following gastrointestinal surgery: Status: Acute Assessment and plan: Continue TPN but will likely be stopping soon as tolerating advancement of diet. (8) Constipation due to neurogenic bowel: Status: Resolved Assessment and plan: S/P diverting colostomy and now revision. aggressive bowel regimen. (9) Major depressive disorder: Status: Chronic Assessment and plan: Duloxetine and Buspar (10) DVT prophylaxis: Status: Chronic Assessment and plan: As above - ANKITA/SCD to LLE. On therapeutic lovenox (11) Discharge planning issues: Status: Acute Assessment and plan: Continues to require hospitalization. DNR/DNI. No beds at [facility] again today. Declined in transfer at [facility]. Surgery is attempting transfer to the [facility], per patient request. Subjective Subjective Interval history since last seen: Mr Velasquez states that he is feeling great and he is excited that he has felt this way for two days in a row. He has been passing flatus and tolerated a clear liquid breakfast. Denies dizziness, chest pain, shortness of breath, nausea, abdominal pain. The patient stated that he did not want me to look farther than [facility] or [facility] for transfer, but Nicki, who was on speaker phone, did request that we look into the [facility], with which the patient agreed. Transfer to [facility] was again attempted this morning, but there were no beds. Exam Narrative Exam Narrative: General: Pleasant middle-aged male, A&Ox3, looks better and in a good mood HEENT: EOMI, MMM, Heart: RRR, no m/r/g Lungs: CTAB/diminished Abdomen: soft, somewhat distended, but overall better, + bowel sounds and sounds of flatus through the ostomy, +output and gas in the ostomy (liquid brown). Ostomy beefy red. Extremities: +2 edema B feet, symmetric, no clubbing/cyanosis, TEDs on BLE's, SCD only to L leg Objective Last Vital Signs Temp 37.4 C 04/05/21 15:40 Pulse 80 04/05/21 15:40 Resp 21 04/05/21 15:40 BP 120/77 04/05/21 15:40 Pulse Ox 96 04/05/21 15:40 Laboratory Results - last 24 hr 04/04/21 04/05/21 04/05/21 21:45 05:09 09:42 WBC RBC Hgb Hct MCV MCH MCHC RDW Plt Count MPV Immature Gran % Neutrophils % Lymphocytes % Monocytes % Eosinophils % Basophils % Nucleated RBC % Absolute Neutrophils Absolute Lymphocytes Absolute Monocytes Absolute Eosinophils Absolute Basophils APTT 63.8 H D 30.2 H D Sodium Cancelled Potassium Cancelled Chloride Cancelled Carbon Dioxide Cancelled Anion Gap Cancelled BUN Cancelled Creatinine Cancelled Estimated GFR/1.73 m2 Cancelled Glucose Cancelled Calcium Cancelled Magnesium Cancelled 04/05/21 04/05/21 04/05/21 09:42 10:50 12:06 WBC 6.47 RBC 2.54 L Hgb 8.3 L Hct 24.5 L MCV 96.5 H MCH 32.7 MCHC 33.9 RDW 17.1 H Plt Count 220 MPV 10.7 Immature Gran % 0.6 Neutrophils % 72.3 Lymphocytes % 15.5 Monocytes % 7.4 Eosinophils % 3.9 Basophils % 0.3 Nucleated RBC % 0 Absolute Neutrophils 4.68 Absolute Lymphocytes 1.00 L Absolute Monocytes 0.48 Absolute Eosinophils 0.25 Absolute Basophils 0.02 APTT Cancelled Sodium 140 Potassium 3.6 Chloride 108 H Carbon Dioxide 25.7 Anion Gap 6.3 BUN 15 Creatinine 0.6 L Estimated GFR/1.73 m2 >= 60.00 Glucose 109 H Calcium 7.9 L Magnesium 1.7 L
[2021-04-05] MEDS: MAGNESIUM SULFATE 2 GM/50 ML BAG IVPB (16:30)
--- NOTE | 2021-04-05 18:47 | CMPROGNOTE_ITS ---
- If Service Date Differs Date of service: 04/05/21 Time of Service: 18:47 Care Management Progress Note S/O: Favio was laying in bed when CM met with him. He stated that he continues to feel well. He shared that today he was able to have a regular diet for lunch and had a grilled cheese sandwich and tomato soup and that it tasted really good. He tolerated lunch well and was able to pass flatus through his stoma.During the visit Favio shared a lot of his fears - both current and future. He verbalized that he is afraid that something will go wrong with his ostomy and/or intestines again because his path has been fraught with complications. Favio also expressed concern about his future. He stated that he knows that he is a lot of care and does not want to be a burden on his family. The concept of learning how to care for Favio's ostomy was introduced to Favio's mother while she was visiting and she was not receptive. She stated that she would not have to do it because Favio would be staying with Nicki. Favio expressed fears that Nicki would not want to participate either and found the situation overwhelming. CM discussed all of the options for Favio's future residence which include, home with caregivers , AFC placement, SNF and even the possibility of his family becoming a licensed AFC home. Favio has some time before he needs to make any decisions as his LTM has not been approved and he is not yet medicallly cleared. The conversation ended on a more positive note with Favio focusing on the positive things that are happening such as the fact that his sacral healing of his sacral wounds and the fact that Nicki will be able to start visiting on Thursday. A: Favio is a 55 year old man admitted to [facility] on 02/22/21 with obstipation. He is now being treated for osteomyelitis of the sacrum and has had a colostomy. P: Favio will likely continue to seek placement at a different facility with the help of his family. He will follow up with their provider's plan of care. Favio will transport via ambulance coordinated by CM. CM will continue to support Favio and his family and assess for ongoing discharge concerns.
[2021-04-05] MEDS: diphenhydrAMINE 50 MG/ML VIAL IVP (21:13)
[2021-04-05] MEDS: diazePAM 10 MG/2 ML SYR 2.5 MG IV (21:14)
[2021-04-05] MEDS: busPIRone 5 MG TAB 10 MG PO (21:16)
[2021-04-06] VITALS (10 sets, daily range): BP systolic 141–181; BP diastolic 82–99; PULSE 76–85; RESP 17–20; TEMP 36.4–37.3; O2SAT 97–98
[2021-04-06] MEDS: PIPERACILLIN/TAZO 3.375 GM in Normal Saline 50 ML IVPB ×2 (01:20→08:04)
[2021-04-06] MEDS: Enoxaparin 100 MG/ML SYR SC ×3 (01:21→21:14)
[2021-04-06] MEDS: DEXTROSE 5%-0.45% SALINE 1,000 ML 75 ML IV (03:32)
[2021-04-06] MEDS: diazePAM 10 MG/2 ML SYR 2.5 MG IV ×2 (03:55→21:14)
[2021-04-06] MEDS: Normal Saline Flush 10 ML SYR IVP ×6 (03:56→21:15)
[2021-04-06 06:53] LABS: Abs Immature Grans 0.06 10^3/uL (0.0-0.06); Absolute Basophil Count 0.02 10^3/uL (0.0-0.2); Absolute Eosinophil Count 0.26 10^3/uL (0.0-0.7); Absolute Monocyte Count 0.59 10^3/uL (0.1-0.8); Absolute Neutrophil Count 4.43 10^3/uL (1.2-6.7); Basophils % 0.3; Eosinophils % 4.1; HCT 25.8 % (40.0-50.0); HGB 8.1 g/dL (13.5-17.5); Immature Grans % 0.9; Lymphocytes % 15.7; MCH 26.6 pg (27.0-33.0); MCHC 31.4 % (32.0-36.0); MCV 84.6 fL (80-95); MPV 10.4 fL (8.0-11.0); Monocytes % 9.3; Neutrophils % 69.7; Nucleated RBC 0 %; Platelet Count 243 10^3/uL (130-400); RBC 3.05 10^6/uL (4.36-5.78); RDW 16.8 % (11.8-14.1); RDW-SD 51.1 fL; WBC 6.36 10^3/uL (4.4-10.8)
[2021-04-06 07:06] LABS: BUN 11 mg/dL (7-18); CREATININE 0.6 mg/dL (0.70-1.30); Calcium 8.3 mg/dL (8.5-10.1); Chloride 108 mmol/L (98-107); Glucose 111 mg/dL (74-106); Magnesium 1.8 mg/dL (1.8-2.4); Potassium 3.5 mmol/L (3.5-5.1); Sodium 141 mmol/L (136-145)
[2021-04-06] MEDS: Polyethylene Glycol 3350 17 GM PACKET PO (08:03)
[2021-04-06] MEDS: Pantoprazole 40 MG VIAL IVP (08:03)
[2021-04-06] MEDS: busPIRone 5 MG TAB 10 MG PO ×3 (08:03→20:18)
[2021-04-06] MEDS: DULoxetine 30 MG CAP PO (08:03)
[2021-04-06] MEDS: Docusate Sodium 100 MG CAP PO ×3 (08:03→20:19)
[2021-04-06] MEDS: Normal Saline Flush 10 ML SYR 20 ML IVP ×2 (08:04→20:23)
[2021-04-06] MEDS: HYDROmorphone 2 MG/ML VIAL IVP ×2 (09:22→15:26)
[2021-04-06] MEDS: Lidocaine 5% Patch 2 PATCH TP (09:40)
--- NOTE | 2021-04-06 10:24 | PDOC.CMPRO ---
Care Management Progress Note S/O: Favio continues to be closely monitored and treated, per MD he is tolerating a regular diet since yesterday. TPN to continue over the weekend, CM continues to follow. A: Favio is a 55 year old man admitted to [facility] on 02/22/21 with obstipation. He is now being treated for osteomyelitis of the sacrum and has had a colostomy. P: Favio will likely continue to seek placement at a different facility with the help of his family. He will follow up with their provider's plan of care. Favio will transport via ambulance coordinated by CM. CM will continue to support Favio and his family and assess for ongoing discharge concerns.
--- NOTE | 2021-04-06 11:54 | W.PM.PROGNOT ---
Date of Service Date of service: 04/06/21 Time of Service: 11:54 Assessment and Plan Assessment and plan (1) Large bowel obstruction: Status: Resolved Assessment and plan: POD #7 s/p ex lap, bowel decompression, takedown of ostomy and new ostomy creation Stoma is pink, slightly less edematous Light brown liquid noted in colostomy bag. Has some air in the bag Abdomen is soft, slightly less distented today. Eating a regular diet without N/V Continue with pyridostigmine TID. 15 mg. If needed may increase to 30 TID. Continue stool softeners Enemnas prn through sotomy (2) Neurogenic bowel: Status: Acute Assessment and plan: . See above (3) Constipation due to neurogenic bowel: Status: Resolved Assessment and plan: As above (4) Acute osteomyelitis of sacrum: Status: Acute Assessment and plan: Continue antibiotics Cultures show sensitivity to vancomycin Antibiotics per Hospitalist team (5) Decubitus ulcer of buttock, stage 4: Status: Acute Assessment and plan: Wound vac in place. There is granulation tissue. NO debridements needed at this time Will continue to follow. Qualifiers: Laterality: left Qualified Code(s): L89.324 - Pressure ulcer of left buttock, stage 4 (6) Quadriplegia: Status: Chronic (7) UTI (urinary tract infection): Status: Acute Qualifiers: Urinary tract infection type: catheter-associated UTI Indwelling urinary catheter type: indwelling urethral catheter Encounter type: initial encounter Qualified Code(s): T83.511A - Infection and inflammatory reaction due to indwelling urethral catheter, initial encounter; N39.0 - Urinary tract infection, site not specified (8) Neurogenic bladder: Status: Chronic Assessment and plan: suprapubic pereyra in place (9) Hx of caloric malnutrition: Status: Acute Assessment and plan: Continue TPN until he is eating 50 % of his calorie needs Will order calorie counts (10) Malnutrition following gastrointestinal surgery: Status: Acute (11) DVT (deep venous thrombosis): Status: Chronic Assessment and plan: US showed femoral vein thromboses. He has been started on therapeutic lovenox I did note some bright red blood on the dressing over his midline incision Will need to watch for drop in Hgb/Hct Qualifiers: DVT location: lower extremity Affected thrombotic vein of extremity: femoral Chronicity: acute Laterality: right Qualified Code(s): I82.411 - Acute embolism and thrombosis of right femoral vein Subjective Subjective Interval history since last seen: Favio is feeling well today. He has been eating a regular diet without N/V. He continues to have liquid stool and air through his ostomy. NO fevers and no Leukocytosis Exam Const General: cooperative, comfortable and no acute distress Orientation: alert and oriented x3 HENMT Head: normocephalic and atraumatic Resp Effort & Inspection: normal respiratory effort Auscultation: clear to auscultation bilaterally Cardio Rate: regular rate Rhythm: regular rhythm GI Inspection: distended Palpation: soft, no hepatosplenomegaly and nontender Auscultation: hypoactive bowel sounds Abdomen image: 1. midline incision with some bleeding noted. Patient is on therapeutic Lovenox 2. ostomy- pink. Less edematous Other: scrotal edema noted today Objective Last Vital Signs Temp 99.0 F 04/06/21 07:21 Pulse 77 04/06/21 07:21 Resp 18 04/06/21 07:21 BP 152/82 H 04/06/21 07:21 Pulse Ox 97 04/06/21 07:21 Laboratory Results - last 24 hr 04/06/21 04/06/21 06:25 06:25 WBC 6.36 RBC 3.05 L Hgb 8.1 L Hct 25.8 L MCV 84.6 D MCH 26.6 L MCHC 31.4 L RDW 16.8 H Plt Count 243 MPV 10.4 Immature Gran % 0.9 Neutrophils % 69.7 Lymphocytes % 15.7 Monocytes % 9.3 Eosinophils % 4.1 Basophils % 0.3 Nucleated RBC % 0 Absolute Neutrophils 4.43 Absolute Lymphocytes 1.00 L Absolute Monocytes 0.59 Absolute Eosinophils 0.26 Absolute Basophils 0.02 Sodium 141 Potassium 3.5 Chloride 108 H Carbon Dioxide 27.0 Anion Gap 6.0 BUN 11 Creatinine 0.6 L Estimated GFR/1.73 m2 >= 60.00 Glucose 111 H Calcium 8.3 L Magnesium 1.8
--- NOTE | 2021-04-06 15:56 | W.PM.PROGNOT ---
Date of Service Date of service: 04/06/21 Time of Service: 15:56 Assessment and Plan Assessment and plan (1) Large bowel obstruction: Status: Resolved Assessment and plan: s/p ex lap 03/31/21 for ostomy takedown and redo, complicated by a post-op ileus, which is now resolving. Patient is tolerating solid foods. Continue pyridostigmine. continue TPN through today but probably can be discontinued tomorrow if he continues to tolerate solid foods. Per Drea his nurse he ate 100% of breakfast and lunch Case discussed w/ Dr. Pedersen this morning (2) Acute osteomyelitis of sacrum: Status: Acute Assessment and plan: Polymicrobial. Completed vancomycin. Continue zosyn. Ostomy was created to improve chances of healing. Continue wound care/wound vacs. Would certainly benefit form having hyperbaric therapy - would benefit from being transferred [place] [facility] [place] this as well. (3) H/O deep venous thrombosis: Status: Chronic Assessment and plan: RLE. Repeat doppler remains positive for DVT R femoral vein. Eliquis is on hold. No SCDs to RLE. Switched to lovenox from heparin gtt. Monitor abdominal incision - the nurses do note that it is weeping sanguenous fluid. As the patient is tolerating his diet, I anticipate that he can go back on his Eliquis in the next day as it appears that he will not require further surgical intervention at this time. (4) Iron deficiency anemia: Status: Acute Assessment and plan: Was on eliquis for a DVT - held for emergent surgery. s/p 1 unit pRBCs 04/01/21. Since then, H/H stable. S/p venofer on this admission Monitor H/H with resumption anticoagulation (eliquis) I will check repeat iron levels. (5) Malnutrition following gastrointestinal surgery: Status: Acute Assessment and plan: Continue TPN but will likely be stopping soon as tolerating advancement of diet. (6) Constipation due to neurogenic bowel: Status: Resolved Assessment and plan: S/P diverting colostomy and now revision. aggressive bowel regimen. continues on pyridostigmine (7) Major depressive disorder: Status: Chronic Assessment and plan: Duloxetine and Buspar (8) DVT prophylaxis: Status: Chronic Assessment and plan: As above - ANKITA/SCD to LLE. On therapeutic lovenox (9) Discharge planning issues: Status: Acute Assessment and plan: Continues to require hospitalization. DNR/DNI. No beds at [facility] again today. Declined in transfer at [facility]. Surgery is attempting transfer to the [facility], per patient request. Subjective Subjective Interval history since last seen: Patient has no acute complaints today. He denies any abdominal pain or nausea and he is tolerating a solid diet. He would like the TPN to be stopped as he is tired of having frequent blood sugars. I told him that we wanted to be sure that he was tolerating his diet for couple days now before dc TPN. I think that the TPN can be stopped tomorrow. He would like his tele off.. He has some scrotal edema but has no feeling down there d/t his quadriplegia. I think the edema is d/t the iv fluids related to his surgery and treament for sepsis. He is no longer on antibiotics. Blood cultures from 03/22 and 04/02 showed no growth. Urine culture grew 50,000 to 100,000 yeast. I will put him on Diflucan. Exam Narrative Exam Narrative: Alert and oriented x 3; middle age white male lying in bed visiting w/ his mother in law Lungs are clear Heart regular Abdomen: + bowel sounds w/ pink ostomy draining green brown liquid BM, not distended Objective Last Vital Signs Temp 36.4 C L 04/06/21 15:13 Pulse 76 04/06/21 15:13 Resp 18 04/06/21 15:13 BP 160/90 H 04/06/21 15:20 Pulse Ox 97 04/06/21 15:13 Laboratory Results - last 24 hr 04/06/21 04/06/21 06:25 06:25 WBC 6.36 RBC 3.05 L Hgb 8.1 L Hct 25.8 L MCV 84.6 D MCH 26.6 L MCHC 31.4 L RDW 16.8 H Plt Count 243 MPV 10.4 Immature Gran % 0.9 Neutrophils % 69.7 Lymphocytes % 15.7 Monocytes % 9.3 Eosinophils % 4.1 Basophils % 0.3 Nucleated RBC % 0 Absolute Neutrophils 4.43 Absolute Lymphocytes 1.00 L Absolute Monocytes 0.59 Absolute Eosinophils 0.26 Absolute Basophils 0.02 Sodium 141 Potassium 3.5 Chloride 108 H Carbon Dioxide 27.0 Anion Gap 6.0 BUN 11 Creatinine 0.6 L Estimated GFR/1.73 m2 >= 60.00 Glucose 111 H Calcium 8.3 L Magnesium 1.8
[2021-04-06] MEDS: Senna TAB 2 TAB PO (20:17)
--- NOTE | 2021-04-06 20:57 | OT.INNT ---
Date of service: 04/05/21 Time of Service: 07:30 Occupational Therapy Notes 04/05/21 OT attempted to work with pt who states that he is not feeling well and would like to hold today. OT will resume services on Thursday. KVNG Bray/L
[2021-04-06] MEDS: diphenhydrAMINE 50 MG/ML VIAL IVP (21:14)
[2021-04-07] MEDS: LORazepam 2 MG/ML VIAL IV ×2 (02:04→16:00)
[2021-04-07] MEDS: HYDROmorphone 2 MG/ML VIAL IVP (02:05)
[2021-04-07] MEDS: Normal Saline Flush 10 ML SYR IVP ×6 (02:09→16:50)
[2021-04-07 03:02] VITALS: BP 143/71; PULSE 78; RESP 20; TEMP 36.7; O2SAT 98
[2021-04-07 06:54] LABS: Abs Immature Grans 0.08 10^3/uL (0.0-0.06); Absolute Basophil Count 0.02 10^3/uL (0.0-0.2); Absolute Eosinophil Count 0.32 10^3/uL (0.0-0.7); Absolute Lymphocyte Count 1.05 10^3/uL (1.2-3.4); Absolute Monocyte Count 0.49 10^3/uL (0.1-0.8); Absolute Neutrophil Count 3.39 10^3/uL (1.2-6.7); Basophils % 0.4; HCT 24.4 % (40.0-50.0); Immature Grans % 1.5; Lymphocytes % 19.6; MCH 27.5 pg (27.0-33.0); MCHC 32.8 % (32.0-36.0); MCV 83.8 fL (80-95); MPV 10.9 fL (8.0-11.0); Monocytes % 9.2; Neutrophils % 63.3; Nucleated RBC 0 %; Platelet Count 227 10^3/uL (130-400); RBC 2.91 10^6/uL (4.36-5.78); RDW 16.7 % (11.8-14.1); RDW-SD 50.9 fL; Reticulocyte 3.3 % (0.5-2.4); WBC 5.35 10^3/uL (4.4-10.8)
[2021-04-07 07:16] LABS: ALT 24 U/L (16-63); AST 14 U/L (15-37); Albumin 1.7 g/dL (3.4-5.0); Alkaline Phosphatase 82 U/L (46-116); Anion Gap 5.1 mmol/L (3-11); BUN 12 mg/dL (7-18); Bilirubin, Total 0.2 mg/dL (0.2-1.0); C-Reactive Protein 5.54 mg/dL (0.0-0.3); CO2 27.9 mmol/L (21.0-32.0); CREATININE 0.6 mg/dL (0.70-1.30); Calcium 8.5 mg/dL (8.5-10.1); Chloride 107 mmol/L (98-107); Glucose 90 mg/dL (74-106); Potassium 3.7 mmol/L (3.5-5.1); Sodium 140 mmol/L (136-145); Total Protein 5.3 g/dL (6.4-8.2)
[2021-04-07] MEDS: Polyethylene Glycol 3350 17 GM PACKET PO (07:18)
[2021-04-07] MEDS: Normal Saline Flush 10 ML SYR 20 ML IVP ×2 (07:18→21:48)
[2021-04-07] MEDS: Pantoprazole 40 MG TABCR PO (07:19)
[2021-04-07] MEDS: Senna TAB 2 TAB PO ×2 (07:19→21:50)
[2021-04-07] MEDS: Docusate Sodium 100 MG CAP PO ×3 (07:19→21:49)
[2021-04-07] MEDS: DULoxetine 30 MG CAP PO (07:19)
[2021-04-07] MEDS: busPIRone 5 MG TAB 10 MG PO ×3 (07:20→21:49)
[2021-04-07 07:39] VITALS: BP 183/96; PULSE 75; RESP 19; TEMP 36.8; O2SAT 98
[2021-04-07 07:46] LABS: Ferritin 451 ng/mL (26-388)
[2021-04-07] MEDS: Furosemide 20 MG/2 ML VIAL IVP ×2 (08:09→16:50)
[2021-04-07 08:30] LABS: Iron 26 ug/dL (65-175); Total Iron Binding Capacity 155 ug/dL (250-450); Transferrin Sat 17 % (20-55)
[2021-04-07] MEDS: Lidocaine 5% Patch 2 PATCH TP (09:25)
[2021-04-07] MEDS: Enoxaparin 100 MG/ML SYR SC ×2 (09:29→21:46)
[2021-04-07] MEDS: diazePAM 10 MG/2 ML SYR 2.5 MG IV ×2 (09:54→21:47)
--- NOTE | 2021-04-07 13:10 | PGE_ITS ---
Date of Service Date of service: 04/07/21 Time of Service: 13:10 Assessment and Plan Assessment and plan (1) Large bowel obstruction: Status: Resolved Assessment and plan: s/p ex lap 03/31/21 for ostomy takedown and redo, complicated by a post-op ileus, which is now resolving. Patient is tolerating solid foods. Continue pyridostigmine. dc TPN; monitor ostomy output and his oral intake. consider dc pyridostigmine; case d/w Dr. Gaspar (2) Acute osteomyelitis of sacrum: Status: Acute Assessment and plan: Polymicrobial. Completed vancomycin. (last dose of Vancomycin was on 04/01). Unclear as to how this was determined as being completed however, his MSSA and his other polymicrobial wound infection from his ischium included Bacteroides and anaerobic gram negatives and gram positives should be covered by Zosyn. However the preferred agent for MSSA osteomyelitis is Nafcillin or oxacillin or Cefazolin. In patients who have an allergy to PCN vanocmycin or daptomycin is given. I will consult w/ I.D. tomorrow to discuss optimum antibiotic coverage. Either way he has only had 3 weeks of coverage. (since 03/17/2021 w/ vancomycin dc'ed on 04/01 but continued treatment w/ Zosyn) Continue zosyn. (Note: Zosyn was last given on 04/05. unclear as to how this got stopped. I have resumed his Zosyn at 4.5 gm iv Q8hr as of 04/07. Ostomy was created to improve chances of healing. Continue wound care/wound vacs. Would certainly benefit form having hyperbaric therapy - would benefit from being transferred [place] [facility] [place] as well. (3) H/O deep venous thrombosis: Status: Chronic Assessment and plan: RLE. Repeat doppler remains positive for DVT R femoral vein. Eliquis is on hold. No SCDs to RLE. Switched to lovenox from heparin gtt. Monitor abdominal incision - the nurses do note that it is weeping sanguenous fluid. As the patient is tolerating his diet, I anticipate that he can go back on his Eliquis in the next day as it appears that he will not require further surgical intervention at this time. (4) Iron deficiency anemia: Status: Acute Assessment and plan: Was on eliquis for a DVT - held for emergent surgery. s/p 1 unit pRBCs 04/01/21. Since then, H/H stable. S/p venofer on this admission Monitor H/H with resumption anticoagulation (eliquis) I will check repeat iron levels. (5) Malnutrition following gastrointestinal surgery: Status: Acute Assessment and plan: Continue TPN but will likely be stopping soon as tolerating advancement of diet. (6) Constipation due to neurogenic bowel: Status: Resolved Assessment and plan: S/P diverting colostomy and now revision. aggressive bowel regimen. continues on pyridostigmine (7) Major depressive disorder: Status: Chronic Assessment and plan: Duloxetine and Buspar (8) DVT prophylaxis: Status: Chronic Assessment and plan: As above - ANKITA/SCD to LLE. On therapeutic lovenox (9) Discharge planning issues: Status: Acute Assessment and plan: Continues to require hospitalization. DNR/DNI. No beds at [facility] [place]. Declined in transfer at [facility]. Surgery is attempting transfer to the [facility], per patient request. Subjective Subjective Interval history since last seen: Patient has no acute complaints. denies any abdominal pain or nausea. tolerating solid foods well. TPN dc'ed today along w/ his blood glucose and insulin orders. His bp remains high. I will start home on amlodipine and also d/t his edema will put him on diuretics (spironolactone which will should also help w/ his BP). cont. to monitor his stool output and his oral intake. Exam Narrative Exam Narrative: Middle age white male lying in bed talking w/ his mother. He denies any complaints Lungs are clear Heart is regular Abdomen is slightly distended however he states he just finished lunch. Normal bowel sounds. Ostomy appears pink, w/ normal brown liquid stool. pereyra draining dark yellow urine. RLE w/ thigh edema but has chronic DVT there; left thigh is not as edematous but w/ some mild scrotal edema; normal penis Objective Last Vital Signs Temp 36.8 C 04/07/21 07:39 Pulse 75 04/07/21 07:39 Resp 19 04/07/21 07:39 BP 183/96 H 04/07/21 07:39 Pulse Ox 98 04/07/21 07:39 Laboratory Results - last 24 hr 0604/07/21 04/07/21 06:15 06:15 06:15 WBC 5.35 RBC 2.91 L Hgb 8.0 L Hct 24.4 L MCV 83.8 MCH 27.5 MCHC 32.8 RDW 16.7 H Plt Count 227 MPV 10.9 Reticulocyte % (Auto) Immature Gran % 1.5 Neutrophils % 63.3 Lymphocytes % 19.6 Monocytes % 9.2 Eosinophils % 6.0 Basophils % 0.4 Nucleated RBC % 0 Absolute Neutrophils 3.39 Absolute Lymphocytes 1.05 L Absolute Monocytes 0.49 Absolute Eosinophils 0.32 Absolute Basophils 0.02 Sodium 140 Potassium 3.7 Chloride 107 Carbon Dioxide 27.9 Anion Gap 5.1 BUN 12 Creatinine 0.6 L Estimated GFR/1.73 m2 >= 60.00 Glucose 90 Calcium 8.5 Iron 26 L TIBC 155 L Transferrin % Sat 17 L Ferritin 451 H Total Bilirubin 0.2 AST 14 L ALT 24 Alkaline Phosphatase 82 C-Reactive Protein 5.54 H Total Protein 5.3 L Albumin 1.7 L 04/07/21 06:15 WBC RBC Hgb Hct MCV MCH MCHC RDW Plt Count MPV Reticulocyte % (Auto) 3.3 H Immature Gran % Neutrophils % Lymphocytes % Monocytes % Eosinophils % Basophils % Nucleated RBC % Absolute Neutrophils Absolute Lymphocytes Absolute Monocytes Absolute Eosinophils Absolute Basophils Sodium Potassium Chloride Carbon Dioxide Anion Gap BUN Creatinine Estimated GFR/1.73 m2 Glucose Calcium Iron TIBC Transferrin % Sat Ferritin Total Bilirubin AST ALT Alkaline Phosphatase C-Reactive Protein Total Protein Albumin
[2021-04-07 15:36] VITALS: BP 186/108; PULSE 71; RESP 18; TEMP 37; O2SAT 98
[2021-04-07] MEDS: Spironolactone 25 MG TAB PO (16:49)
[2021-04-07] MEDS: amLODIPine 5 MG TAB PO (16:49)
--- NOTE | 2021-04-07 17:15 | CMPROGNOTE_ITS ---
Care Management Progress Note S/O: Favio continues to be closely monitored and treated, per MD he is tolerating a regular diet since yesterday. TPN to continue over the weekend, CM continues to follow. A: Favio is a 55 year old man admitted to [facility] on 02/22/21 with obstipation. He is now being treated for osteomyelitis of the sacrum and has had a colostomy. P: Favio will likely continue to seek placement at a different facility with the help of his family. He will follow up with their provider's plan of care. Favio will transport via ambulance coordinated by CM. CM will continue to support Favio and his family and assess for ongoing discharge concerns.
[2021-04-07 18:43] VITALS: BP 127/79; PULSE 86
[2021-04-07] MEDS: diphenhydrAMINE 50 MG/ML VIAL IVP (21:47)
[2021-04-07] MEDS: PIPERACILLIN/TAZO 4.5 GM in Normal Saline 100 ML IVPB (21:50)
[2021-04-08 00:18] VITALS: BP 138/81; PULSE 82; RESP 20; TEMP 36.6; O2SAT 99
[2021-04-08] MEDS: LORazepam 2 MG/ML VIAL IV ×2 (03:13→22:46)
[2021-04-08] MEDS: HYDROmorphone 2 MG/ML VIAL IVP ×3 (03:13→22:47)
[2021-04-08] MEDS: Normal Saline Flush 10 ML SYR IVP ×5 (03:14→22:45)
[2021-04-08] MEDS: PIPERACILLIN/TAZO 4.5 GM in Normal Saline 100 ML IVPB ×3 (05:50→21:36)
[2021-04-08 07:18] LABS: Anion Gap 8.1 mmol/L (3-11); BUN 13 mg/dL (7-18); CO2 29.9 mmol/L (21.0-32.0); CREATININE 0.7 mg/dL (0.70-1.30); Calcium 8.3 mg/dL (8.5-10.1); Chloride 105 mmol/L (98-107); Glucose 75 mg/dL (74-106); Potassium 3.4 mmol/L (3.5-5.1); Sodium 143 mmol/L (136-145)
[2021-04-08 08:47] VITALS: BP 183/96; PULSE 74; RESP 18; TEMP 36.3; O2SAT 98
[2021-04-08] MEDS: Polyethylene Glycol 3350 17 GM PACKET PO (08:48)
[2021-04-08] MEDS: Senna TAB 2 TAB PO ×2 (08:48→20:42)
[2021-04-08] MEDS: Pantoprazole 40 MG TABCR PO (08:49)
[2021-04-08] MEDS: DULoxetine 30 MG CAP PO (08:49)
[2021-04-08] MEDS: busPIRone 5 MG TAB 10 MG PO ×3 (08:49→20:37)
[2021-04-08] MEDS: Spironolactone 25 MG TAB PO (08:49)
[2021-04-08] MEDS: amLODIPine 5 MG TAB PO ×2 (08:50→10:34)
[2021-04-08] MEDS: Docusate Sodium 100 MG CAP PO ×3 (08:50→20:43)
[2021-04-08] MEDS: ACETAMINOPHEN 1,000 MG/100 ML BTL 400 MG IVPB (08:58)
[2021-04-08] MEDS: Normal Saline Flush 10 ML SYR 20 ML IVP ×2 (09:01→20:44)
[2021-04-08] MEDS: diazePAM 10 MG/2 ML SYR 2.5 MG IV (09:31)
[2021-04-08] MEDS: Enoxaparin 100 MG/ML SYR SC (09:31)
[2021-04-08] MEDS: Lidocaine 5% Patch 2 PATCH TP (09:32)
--- NOTE | 2021-04-08 10:23 | CMPROGNOTE_ITS ---
- If Service Date Differs Date of service: 04/08/21 Time of Service: 10:23 Care Management Progress Note S/O: Favio was visiting with Nicki and his father when CM met with him. He was in good spirits as he had not been able to see Nicki for several months until today. Favio asked questions about residential medicaid and what services it would cover. He did not understand that he would have to forfeit most of his personal assets before he would be eligible. Favio asked CM when he would be ready to go home. CM informed him, that from a medical point of view, probably soon, but that he does not have a safe place to go. He and Nicki have discussed him going to her house but Favio will need caregivers 25/05 and Nicki does not have that kind of support available. It may be possible if/when he does get LTM approval. Permission was sought and received today for Favio to be able to go outside accompanied by staff. Arrangements will be made to do so when it is not quite so hot and humid outside. A: Favio is a 55 year old man admitted to [facility] on 02/22/21 with obstipation. He is now being treated for osteomyelitis of the sacrum and has had a colostomy. P: Favio will likely continue to seek placement at a different facility with the help of his family. He will follow up with their provider's plan of care. Favio will transport via ambulance coordinated by [facility]. CM will continue to support Favio and his family and assess for ongoing discharge concerns.
[2021-04-08 11:03] VITALS: BP 166/89; PULSE 84
[2021-04-08] MEDS: Baclofen 10 MG TAB 5 MG PO (12:24)
--- NOTE | 2021-04-08 12:47 | W.PM.PROGNOT ---
Date of Service Date of service: 04/08/21 Time of Service: 07:30 Assessment and Plan Assessment and plan (1) Large bowel obstruction: Status: Resolved Assessment and plan: POD #9 s/p ex lap, bowel decompression, takedown of ostomy and new ostomy creation Stoma is pink Light brown liquid noted in colostomy bag. Has some air in the bag Abdomen is soft Eating a regular diet without N/V Continue with pyridostigmine TID. 15 mg. If needed may increase to 30 TID. Continue stool softeners Enemnas prn through sotomy (2) Neurogenic bowel: Status: Acute Assessment and plan: . See above (3) Constipation due to neurogenic bowel: Status: Resolved Assessment and plan: As above (4) Acute osteomyelitis of sacrum: Status: Acute Assessment and plan: Continue antibiotics Cultures show sensitivity to vancomycin Antibiotics per Hospitalist team (5) Decubitus ulcer of buttock, stage 4: Status: Acute Assessment and plan: Wound vac in place. There is granulation tissue. NO debridements needed at this time Will continue to follow. Qualifiers: Laterality: left Qualified Code(s): L89.324 - Pressure ulcer of left buttock, stage 4 (6) Quadriplegia: Status: Chronic (7) UTI (urinary tract infection): Status: Acute Assessment and plan: Surpapubic pereyra in place Yellow colored urine in pereyra bag Qualifiers: Urinary tract infection type: catheter-associated UTI Indwelling urinary catheter type: indwelling urethral catheter Encounter type: initial encounter Qualified Code(s): T83.511A - Infection and inflammatory reaction due to indwelling urethral catheter, initial encounter; N39.0 - Urinary tract infection, site not specified (8) Neurogenic bladder: Status: Chronic Assessment and plan: suprapubic pereyra in place (9) Hx of caloric malnutrition: Status: Acute Assessment and plan: Continue TPN until he is eating 50 % of his calorie needs (10) Malnutrition following gastrointestinal surgery: Status: Acute (11) DVT (deep venous thrombosis): Status: Chronic Assessment and plan: US showed femoral vein thromboses. He has been started on therapeutic lovenox I did note some bright red blood on the dressing over his midline incision Will need to watch for drop in Hgb/Hct Qualifiers: DVT location: lower extremity Affected thrombotic vein of extremity: femoral Chronicity: acute Laterality: right Qualified Code(s): I82.411 - Acute embolism and thrombosis of right femoral vein Subjective Subjective Interval history since last seen: Patient reports he continues to feel like he is improving. He is tolerating a regular diet. Denies any nausea or vomiting. Exam Const General: cooperative, healthy appearing and comfortable Orientation: alert and oriented x3 Resp Effort & Inspection: normal respiratory effort, no audible wheezes and no cough GI Inspection: normal to inspection and non-distended Palpation: soft, no guarding and nontender Other: Brown soft stool noted in colostomy Objective Last Vital Signs Temp 36.3 C L 04/08/21 08:47 Pulse 84 04/08/21 11:03 Resp 18 04/08/21 08:47 BP 166/89 H 04/08/21 11:03 Pulse Ox 98 04/08/21 08:47 Laboratory Results - last 24 hr 04/07/21 04/08/21 16:00 06:40 Sodium 143 Potassium 3.4 L Chloride 105 Carbon Dioxide 29.9 Anion Gap 8.1 BUN 13 Creatinine 0.7 Estimated GFR/1.73 m2 >= 60.00 Glucose 75 POC Glucose Cancelled Calcium 8.3 L
--- NOTE | 2021-04-08 14:11 | W.NUTRFU ---
Date of service: 04/08/21 Time of Service: 14:11 Nutritional Follow up NOTE: TPN stopped 04/07/21. Following regular meal plan with excellent intake. PO intake averaging [id number] kcal daily, 70-80 g protein. Bruce reports feeling really well and enjoys eating. Recommend restart liquid protein 1 oz TID to meet 100% protein needs. Also, recommend restart MVI, 500mg Vit C BID. Does not need zinc sulfate, as its recommended it only be given for 14 days in row. With addition of liquid protein, will meet 100% macro and micronutrient needs for weight stability and optimal wound healing. Time Spent in Nutritional Counseling and Treatment: 10 min
--- NOTE | 2021-04-08 14:17 | OTTR_ITS ---
Date of service: 04/08/21 Time of Service: 07:30 Occupational Therapy Notes Occupational Therapy Inpatient Treatment Note Date: 04/08/21 PRECAUTIONS: Fall, standard, Full SUBJECTIVE: Pt was sitting in bed when OT arrived. He notes that he is sore and he is happy to have a break from exercises for a while. OBJECTIVE: PAIN:no c/o pain Manual Therapy [id number]: OT performed joint blocking techniques and manual mobilization to pts (B) UE at MP, IP and DIP as well as PROM to pts (B) thumbs into flexion. OT passively mobilized pts (B) wrists into flexion and extension which he had some pain at end ranges. Pts (B) UE is swollen, his (L) is tender again to palpation with increased stiffness. Self Care training [id number]: OT and pt went over body mechanics for increased UE use with ADLs for eating, dressing and bathing. Next session we will progress to performance of this with (A) as needed. ASSESSMENT/PLAN: Pt is doing better, he is sore and unable to tolerate a lot of AROM of his digits but has increased edema. Pt would benefit from continued OT services for ROM, adaptive equipment and use of his (B) UE. He is able to eat now and OT will start to progress his more functional ROM as he can tolerate. TREATMENT CODES/TIME: [id number], [id number], 35 minutes (07:30) Michelle Pearce OTR/[facility]
[2021-04-08 15:14] VITALS: BP 135/83; PULSE 77; RESP 18; TEMP 36.8; O2SAT 97
--- NOTE | 2021-04-08 16:37 | W.PM.PROGNOT ---
Date of Service Date of service: 04/08/21 Time of Service: 16:37 Assessment and Plan Assessment and plan (1) Large bowel obstruction: Status: Resolved Assessment and plan: s/p ex lap 03/31/21 for ostomy takedown and redo, complicated by a post-op ileus, which is now resolving. Patient is tolerating solid foods. Continue pyridostigmine. dc TPN; monitor ostomy output and his oral intake. Per surgery, cont. pyridostigmine for neurogenic bowel. He was not on this medication prior to surgery. This was given for postoperative ileus. I am not sure he needs this half-way but for now we will keep him on this since he seems to be having more regular BM's and no ill effects of the pyridostigmine (2) Acute osteomyelitis of sacrum: Status: Acute Assessment and plan: Polymicrobial. Completed vancomycin. (last dose of Vancomycin was on 04/01). Unclear as to how this was determined as being completed however, his MSSA and his other polymicrobial wound infection from his ischium included Bacteroides and anaerobic gram negatives and gram positives should be covered by Zosyn. However the preferred agent for MSSA osteomyelitis is Nafcillin or oxacillin or Cefazolin. In patients who have an allergy to PCN vanocmycin or daptomycin is given. Either way he has only had 3 weeks of coverage. (since 03/17/2021 w/ vancomycin dc'ed on 04/01 but continued treatment w/ Zosyn) Continue zosyn. (Note: Zosyn was last given on 04/05. unclear as to how this got stopped. I have resumed his Zosyn at 4.5 gm iv Q8hr as of 04/07. continue Zosyn through 04/28. Ostomy was created to improve chances of healing. Continue wound care/wound vacs. (3) H/O deep venous thrombosis: Status: Chronic Assessment and plan: RLE. Repeat doppler remains positive for DVT R femoral vein. Resume Eliquis and dc lovenox shots (4) Iron deficiency anemia: Status: Acute Assessment and plan: Was on eliquis for a DVT - held for emergent surgery. s/p 1 unit pRBCs 04/01/21. Since then, H/H stable. S/p venofer on this admission Monitor H/H with resumption anticoagulation (eliquis) Iron levels remain low. Will give Venofer (5) Malnutrition following gastrointestinal surgery: Status: Acute Assessment and plan: TPN dc'ed. tolerating regular diet. protein supplements, MVI and vitamin C added per recommendation from nutritional services (6) Constipation due to neurogenic bowel: Status: Resolved Assessment and plan: S/P diverting colostomy and now revision. aggressive bowel regimen. continues on pyridostigmine (7) Major depressive disorder: Status: Chronic Assessment and plan: Duloxetine and Buspar (8) DVT prophylaxis: Status: Chronic Assessment and plan: As above - ANKITA/SCD to LLE. On therapeutic lovenox but switching back to his Eliquis dose (9) Discharge planning issues: Status: Acute Assessment and plan: patient no longer requiring transfer to [facility]. he is tolerating his diet but needs continued antibiotics for another 3 weeks. He would benefit from swing bed status. I will discuss this w/ surgery tomorrow. If they feel he is medically/surgically stable for swing then we can transition tomorrow w/ P.T. and O.T. Subjective Subjective Patient reports: no new complaints, flatus and bowel movement; denies nausea, vomiting and shortness of breath Exam Narrative Exam Narrative: Middle age white male sitting up in bed talking w/ the mother of his children He denies any dyspnea, cp or abdominal pains Lungs clear Heart RRR Abdomen: soft and nontender. Per patient he just had his colostomy bag emptied of some soft semiformed stools Objective Last Vital Signs Temp 36.8 C 04/08/21 15:14 Pulse 77 04/08/21 15:14 Resp 18 04/08/21 15:14 BP 135/83 04/08/21 15:14 Pulse Ox 97 04/08/21 15:14 Laboratory Results - last 24 hr 04/07/21 04/08/21 16:00 06:40 Sodium 143 Potassium 3.4 L Chloride 105 Carbon Dioxide 29.9 Anion Gap 8.1 BUN 13 Creatinine 0.7 Estimated GFR/1.73 m2 >= 60.00 Glucose 75 POC Glucose Cancelled Calcium 8.3 L
[2021-04-08] MEDS: Potassium Chloride Liquid 20 MEQ PKT PO (17:28)
[2021-04-08] MEDS: Ascorbic Acid 500 MG TAB PO (20:36)
[2021-04-08] MEDS: Apixaban 5 MG TAB PO (20:43)
[2021-04-08] MEDS: Protein Nutritional Supplement 16 GM 1 OUNCE PACKET PO (20:43)
[2021-04-08] MEDS: Acetaminophen 500 MG TAB 1000 MG PO (21:36)
--- NOTE | 2021-04-08 21:46 | PCPN_ITS ---
Date of service: 04/08/21 Time of Service: 19:47 Assessment and Plan Assessment and plan (1) DVT (deep venous thrombosis): Status: Chronic Qualifiers: Affected thrombotic vein of extremity: femoral Chronicity: acute DVT location: lower extremity Laterality: right Qualified Code(s): I82.411 - Acute embolism and thrombosis of right femoral vein (2) Right arm pain: Status: Acute (3) Malnutrition following gastrointestinal surgery: Status: Acute (4) S/P colostomy: Status: Acute (5) Palliative care patient: Status: Acute Assessment and plan: 55 year old man who recently fell and sustained a cervical cord injury, with suprapubic cath, second colostomy, sacral osteomylitis and wound. Today he is doing much better regarding his mood and outlook. He no longer feels nauseated, bowels are working well and very importantly he has regained the some use of his right arm. He feels that after many setbacks, things are moving forward. He was very happy Dr Mckeon came to visit him and feels she was sincere in her words. He continues to be impressed with his good nursing care. He had a long visit from the mother of his child and it felt good. He continues to have regular counseling sessions by robbin. He feels he is making progress. Subjective Subjective Interval history since last seen: Favio is feeling much much better. He has a happy outlook and sees improvement. He no longer has an NG tube, his bowels are working well, no difficulty with urination, supra pubic cath working well, and his wounds are healing. He has had a visit from the mother of his child. He states that the black cloud that has been following him for the last several weeks is lifting. He is excited about watching the movie [employer] Exam Narrative Exam Narrative: Favio looks great. He is using his right arm. He says it is working much better than the last time I saw him. His heart is regular. Lungs good aeration. Abdomen good bowel sounds and colostomy stump looks good. Objective Last Vital Signs Temp 98.2 F 04/08/21 15:14 Pulse 77 04/08/21 15:14 Resp 18 04/08/21 15:14 BP 135/83 04/08/21 15:14 Pulse Ox 97 04/08/21 15:14 Laboratory Results - last 24 hr 04/07/21 04/08/21 16:00 06:40 Sodium 143 Potassium 3.4 L Chloride 105 Carbon Dioxide 29.9 Anion Gap 8.1 BUN 13 Creatinine 0.7 Estimated GFR/1.73 m2 >= 60.00 Glucose 75 POC Glucose Cancelled Calcium 8.3 L
[2021-04-09 00:07] VITALS: BP 145/82; PULSE 83; RESP 20; TEMP 37.1; O2SAT 97
[2021-04-09] MEDS: LORazepam 2 MG/ML VIAL IV (03:07)
[2021-04-09] MEDS: HYDROmorphone 2 MG/ML VIAL IVP ×3 (03:07→13:51)
[2021-04-09] MEDS: PIPERACILLIN/TAZO 4.5 GM in Normal Saline 100 ML IVPB ×3 (06:12→22:02)
[2021-04-09 07:09] LABS: Abs Immature Grans 0.06 10^3/uL (0.0-0.06); Absolute Basophil Count 0.03 10^3/uL (0.0-0.2); Absolute Eosinophil Count 0.32 10^3/uL (0.0-0.7); Absolute Monocyte Count 0.46 10^3/uL (0.1-0.8); Basophils % 0.5; Eosinophils % 5.7; HCT 27.6 % (40.0-50.0); HGB 8.7 g/dL (13.5-17.5); Immature Grans % 1.1; Lymphocytes % 19.7; MCH 27.1 pg (27.0-33.0); MCHC 31.5 % (32.0-36.0); MPV 10.3 fL (8.0-11.0); Monocytes % 8.3; Neutrophils % 64.7; Nucleated RBC 0 %; Platelet Count 255 10^3/uL (130-400); RBC 3.21 10^6/uL (4.36-5.78); RDW-SD 53.1 fL; WBC 5.57 10^3/uL (4.4-10.8)
[2021-04-09] MEDS: Pantoprazole 40 MG TABCR PO (07:16)
[2021-04-09 08:10] LABS: Anion Gap 6.6 mmol/L (3-11); BUN 17 mg/dL (7-18); CO2 28.4 mmol/L (21.0-32.0); CREATININE 0.7 mg/dL (0.70-1.30); Chloride 104 mmol/L (98-107); Glucose 87 mg/dL (74-106); Sodium 139 mmol/L (136-145)
[2021-04-09 08:11] VITALS: BP 163/91; PULSE 80; RESP 19; TEMP 36.7; O2SAT 98
[2021-04-09] MEDS: Normal Saline Flush 10 ML SYR 20 ML IVP ×2 (08:30→20:29)
[2021-04-09] MEDS: Polyethylene Glycol 3350 17 GM PACKET PO (08:30)
[2021-04-09] MEDS: Baclofen 10 MG TAB 5 MG PO ×3 (08:31→20:33)
[2021-04-09] MEDS: Docusate Sodium 100 MG CAP PO ×3 (08:32→20:34)
[2021-04-09] MEDS: amLODIPine 5 MG TAB 10 MG PO (08:32)
[2021-04-09] MEDS: DULoxetine 30 MG CAP PO (08:32)
[2021-04-09] MEDS: busPIRone 5 MG TAB 10 MG PO ×3 (08:32→20:33)
[2021-04-09] MEDS: Ascorbic Acid 500 MG TAB PO ×2 (08:32→20:33)
[2021-04-09] MEDS: Multivitamin w/Minerals TAB 1 TAB PO (08:32)
[2021-04-09] MEDS: Protein Nutritional Supplement 16 GM 1 OUNCE PACKET PO ×2 (08:33→20:28)
[2021-04-09] MEDS: Apixaban 5 MG TAB PO ×2 (08:33→20:30)
[2021-04-09] MEDS: Spironolactone 25 MG TAB PO (08:33)
[2021-04-09] MEDS: Senna TAB 2 TAB PO ×2 (08:33→20:30)
--- NOTE | 2021-04-09 08:51 | OTTR_ITS ---
Date of service: 04/09/21 Time of Service: 08:05 Occupational Therapy Notes Occupational Therapy Inpatient Treatment Note Date: 04/09/21 PRECAUTIONS: Fall, standard, Full SUBJECTIVE: Pt was sitting in bed when OT arrived. He notes that he didn't sleep well last night, he does have his braces on and he has soreness in his (L) elbow with edema noted in (B) elbows. OBJECTIVE: PAIN:no c/o pain Manual Therapy [id number]: OT performed joint blocking techniques and manual mobilization to pts (B) UE at MP, IP and DIP as well as PROM to pts (B) thumbs into flexion. OT passively mobilized pts (B) wrists into flexion and extension which he had some pain at end ranges. Pts (B) UE is swollen, his (L) is tender again to palpation with increased stiffness.Pt is unable to tolerate any ROM to his (L) elbow as this is sore. OT does perform positional relief movements but pt does not get any relief at this time. OT will monitor this and progress according to pts pain and symptoms. Pt will continue to only wear his braces at night. ASSESSMENT/PLAN: Pt is doing better, he is sore and unable to tolerate a lot of AROM of his digits but has increased edema. His (B) elbows are sore and swollen, OT does work on positional placement however will work on taping pt if edema continues at next session. TREATMENT CODES/TIME: [id number], 30 minutes (08:05) Michelle Pearce OTR/L [facility]
[2021-04-09] MEDS: Lidocaine 5% Patch 2 PATCH TP (09:27)
[2021-04-09] MEDS: Normal Saline Flush 10 ML SYR IVP ×2 (09:29→13:53)
--- NOTE | 2021-04-09 10:00 | CMPROGNOTE_ITS ---
- If Service Date Differs Date of service: 04/09/21 Time of Service: 10:00 Care Management Progress Note S/O: Favio was lying in bed when CM met with him. He appeared a bit pale and seemed tired. He explained that he had just had his wound vac changed and that he was uncomfortable. He admitted that he was also a little sleepy because he had been pre-medicated before the procedure. Favio again asked if there were discussions among staff and providers about him being discharged. [facility] again expl ained that until or unless a safe discharge plan can be created, he will remain at [facility]. His daughter is working on the shelter medicaid application for Favio. It is unlikely placement can be secured at least until LTM is approved. He does not have a payer source for SNF placement at this time, nor does he have money for caregivers. A: Favio is a 55 year old man admitted to [facility] on 02/22/21 with obstipation. He is now being treated for osteomyelitis of the sacrum and has had a colostomy. 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 Without a guaranteed payer source, long-term facilities are unwilling to accept him in transfer. Referrals have been sent to most facilities in [place] as well as to some in other [facility]. refgerrals have also been sent to rehab hospitals [facility] but none have accepted him. [facility] has been told that he is not acute enough at this point to require intense inpatient acute rehab. When disposition is found, Favio will follow up with their provider's plan of care. Favio will transport via ambulance coordinated by [facility]. [facility] will continue to support Favio and his family and assess for ongoing discharge concerns.
--- NOTE | 2021-04-09 13:07 | PGE_ITS ---
Date of Service Date of service: 04/09/21 Time of Service: 13:07 Assessment and Plan Assessment and plan (1) Large bowel obstruction: Status: Resolved Assessment and plan: POD #10 s/p ex lap, bowel decompression, takedown of ostomy and new ostomy creation Stoma is pink Light brown liquid noted in colostomy bag. Has some air in the bag Abdomen is soft Eating a regular diet without N/V Continue with pyridostigmine TID. 15 mg. If needed may increase to 30 TID. Continue stool softeners Enemnas prn through sotomy (2) Neurogenic bowel: Status: Acute Assessment and plan: . See above (3) Constipation due to neurogenic bowel: Status: Resolved Assessment and plan: As above (4) Acute osteomyelitis of sacrum: Status: Acute Assessment and plan: Continue antibiotics Cultures show sensitivity to vancomycin Antibiotics per Hospitalist team (5) Decubitus ulcer of buttock, stage 4: Status: Acute Assessment and plan: Wound vac in place. There is granulation tissue. NO debridements needed at this time Will continue to follow. Qualifiers: Laterality: left Qualified Code(s): L89.324 - Pressure ulcer of left buttock, stage 4 (6) Quadriplegia: Status: Chronic (7) UTI (urinary tract infection): Status: Acute Assessment and plan: Surpapubic pereyra in place Yellow colored urine in pereyra bag Qualifiers: Urinary tract infection type: catheter-associated UTI Indwelling urinary catheter type: indwelling urethral catheter Encounter type: initial encounter Qualified Code(s): T83.511A - Infection and inflammatory reaction due to indwelling urethral catheter, initial encounter; N39.0 - Urinary tract infection, site not specified (8) Neurogenic bladder: Status: Chronic Assessment and plan: suprapubic pereyra in place (9) Hx of caloric malnutrition: Status: Acute Assessment and plan: Regular diet. Nutrition following (10) Malnutrition following gastrointestinal surgery: Status: Acute (11) DVT (deep venous thrombosis): Status: Chronic Assessment and plan: US showed femoral vein thromboses. He has been started on therapeutic lovenox I did note some bright red blood on the dressing over his midline incision Will need to watch for drop in Hgb/Hct Qualifiers: DVT location: lower extremity Affected thrombotic vein of extremity: femoral Chronicity: acute Laterality: right Qualified Code(s): I82.411 - Acut e embolism and thrombosis of right femoral vein Subjective Subjective Interval history since last seen: Patient reports he continues to feel like he is improving. He is tolerating a regular diet. Denies any nausea or vomiting. Exam Const General: cooperative, healthy appearing, comfortable, no acute distress and anxious Orientation: alert, awake and oriented x3 HENMT Head: normocephalic and atraumatic Resp Effort & Inspection: normal respiratory effort, able to speak in complete sentences, no audible wheezes, no cough, no grunting and not labored Auscultation: clear to auscultation bilaterally and diminished lung sounds bilaterally in the lower lung kothari Cardio Rate: regular rate Rhythm: regular rhythm Heart Sounds: S1 normal, S2 normal, no gallops, no murmurs and no rubs GI Inspection: normal to inspection, non-distended and incision (incision covered with dressing; slightly saturated) Palpation: soft, no hepatosplenomegaly, no guarding, no hernias, not rigid and nontender Percussion: no fluid wave and tympanic to percussion Auscultation: normal bowel sounds, absent bowel sounds and hypoactive bowel sounds Neuro General: patient alert, patient awake and patient oriented x3 Cognition: normal cognition Speech: speech normal Psych Mental Status: mental status grossly normal Mood: congruent mood Affect: normal affect Attitude: cooperative Thought Process: normal Thought Content: normal Insight: insight good Judgment: judgment good Objective Last Vital Signs Temp 98.1 F 04/09/21 08:11 Pulse 80 04/09/21 08:11 Resp 19 04/09/21 08:11 BP 163/91 H 04/09/21 08:11 Pulse Ox 98 04/09/21 08:11 Laboratory Results - last 24 hr 04/08/21 04/08/21 04/09/21 08:30 16:00 06:20 WBC RBC Hgb Hct MCV MCH MCHC RDW Plt Count MPV Immature Gran % Neutrophils % Lymphocytes % Monocytes % Eosinophils % Basophils % Nucleated RBC % Absolute Neutrophils Absolute Lymphocytes Absolute Monocytes Absolute Eosinophils Absolute Basophils Sodium 139 Potassium 4.0 Chloride 104 Carbon Dioxide 28.4 Anion Gap 6.6 BUN 17 Creatinine 0.7 Estimated GFR/1.73 m2 >= 60.00 Glucose 87 POC Glucose Cancelled Cancelled Calcium 9.0 04/09/21 04/09/21 04/09/21 06:20 08:30 16:00 WBC 5.57 RBC 3.21 L Hgb 8.7 L Hct 27.6 L MCV 86.0 MCH 27.1 MCHC 31.5 L RDW 17.0 H Plt Count 255 MPV 10.3 Immature Gran % 1.1 Neutrophils % 64.7 Lymphocytes % 19.7 Monocytes % 8.3 Eosinophils % 5.7 Basophils % 0.5 Nucleated RBC % 0 Absolute Neutrophils 3.60 Absolute Lymphocytes 1.10 L Absolute Monocytes 0.46 Absolute Eosinophils 0.32 Absolute Basophils 0.03 Sodium Potassium Chloride Carbon Dioxide Anion Gap BUN Creatinine Estimated GFR/1.73 m2 Glucose POC Glucose Cancelled Cancelled Calcium 04/10/21 04/10/21 04/11/21 08:30 16:00 08:30 WBC RBC Hgb Hct MCV MCH MCHC RDW Plt Count MPV Immature Gran % Neutrophils % Lymphocytes % Monocytes % Eosinophils % Basophils % Nucleated RBC % Absolute Neutrophils Absolute Lymphocytes Absolute Monocytes Absolute Eosinophils Absolute Basophils Sodium Potassium Chloride Carbon Dioxide Anion Gap BUN Creatinine Estimated GFR/1.73 m2 Glucose POC Glucose Cancelled Cancelled Cancelled Calcium 04/11/21 04/12/21 04/12/21 16:00 08:30 16:00 WBC RBC Hgb Hct MCV MCH MCHC RDW Plt Count MPV Immature Gran % Neutrophils % Lymphocytes % Monocytes % Eosinophils % Basophils % Nucleated RBC % Absolute Neutrophils Absolute Lymphocytes Absolute Monocytes Absolute Eosinophils Absolute Basophils Sodium Potassium Chloride Carbon Dioxide Anion Gap BUN Creatinine Estimated GFR/1.73 m2 Glucose POC Glucose Cancelled Cancelled Cancelled Calcium 04/13/21 04/13/21 08:30 16:00 WBC RBC Hgb Hct MCV MCH MCHC RDW Plt Count MPV Immature Gran % Neutrophils % Lymphocytes % Monocytes % Eosinophils % Basophils % Nucleated RBC % Absolute Neutrophils Absolute Lymphocytes Absolute Monocytes Absolute Eosinophils Absolute Basophils Sodium Potassium Chloride Carbon Dioxide Anion Gap BUN Creatinine Estimated GFR/1.73 m2 Glucose POC Glucose Cancelled Cancelled Calcium
--- NOTE | 2021-04-09 14:19 | WOUNDCONS_ITS ---
- If Service Date Differs Date of service: 04/09/21 Time of Service: 14:19 Wound Initial Evaluation Narrative: Weekly re-evaluation done on Pt today. Verbal consent given by Pt. for photographs d/t quadriplegia. Wounds look about the same in overall appearance as last assessment done on 04/04 . Measurement on Left AND right Ischial Tuberosity are slightly larger than on 04/04. Concern for bio-film. Concern for reoccurrence of osteomyelitis on bilateral wounds, IV Vancomycin course finished on 04/01/21. Bone continues to be palpable bilaterally. Pt does have generalized edema, also in area of wounds, especially on posterior thighs, edema could be contributing to slight increase in size of wound measurements. Progress note from Wendy Skinner on 03/20/21 states after intial osteo Dx ID did state that he will need to be treated every couple of week, likely for 2 weeks unitl wound heals. I will follow up with Providers. See last weeks photos for comparison. Tunneling is an issue in bilateral wounds. Shearing appears to be an issue, HOB should be kept lower than 30 degree s when possible. White foam used in bilateral wounds in tunnels. Continue current ordered treatment with anasept cleanser and promogran rosa. White adherent slough in right wound base. Slough has been persistent, present with each assessment over the weeks that I have been following Mr. Velasquez. Slough area slightly diminished in size from initial assessment post-operative debridement. Bone palpable directly underneath slough. Will monitor slough area x1 more week to ensure decrease in size of slough area. If no improvement will discuss with surgical team on how to proceed with right ischial tuberosity wound. - Recomendation Recomendation:: Wound vac changes on , , THU- Cleanse bilateral ishial tuberosity wounds with anasept cleanser and gauze, Skin prep to periwound. Add promogran rosa (1 package to each wound) to wound beds with wound vac dressing changes. Place white foam in tunnels on bilateral wounds and pull out of tunnel 1 cm. cover with black foam. Recommend ruling out and treating osteomyelitis @ this time.
[2021-04-09 16:19] VITALS: BP 134/77; PULSE 82; RESP 19; TEMP 36; O2SAT 97
--- NOTE | 2021-04-09 18:49 | PGE_ITS ---
Date of Service Date of service: 04/09/21 Time of Service: 18:49 Assessment and Plan Assessment and plan (1) Acute osteomyelitis of sacrum: Status: Acute Assessment and plan: Polymicrobial. (MSSA, Proteus and Corynebacterium) Vancomycin given 03/17 to 04/01. Ceftriaxone 03/19-03/22, Zosyn 03/22-04/05, 04/07 to present. I will discuss w/ Wendy Skinner her conversation w/ [facility] I.D. and I may need to revisit his antibiotics coverage w/ I.D. again. The MSSA should respond to the Zosyn although his wound care nurse seems to think that he was doing better on the Vancomycin. (2) Large bowel obstruction: Status: Resolved Assessment and plan: s/p ex lap 03/31/21 for ostomy takedown and redo, complicated by a post-op ileus, which is now resolving. Patient is tolerating solid foods. Continue pyridostigmine. Remains off TPN. doing well with his diet. at this point he is doing well enough to return to swing bed status. (3) H/O deep venous thrombosis: Status: Chronic Assessment and plan: RLE. Repeat doppler remains positive for DVT R femoral vein. Resume Eliquis and dc lovenox shots (4) Iron deficiency anemia: Status: Acute Assessment and plan: Was on eliquis for a DVT - held for emergent surgery. s/p 1 unit pRBCs 04/01/21. Since then, H/H stable. S/p venofer on this admission Monitor H/H with resumption anticoagulation (eliquis) Iron levels remain low. repeat Venofer for 2 more doses. (5) Malnutrition following gastrointestinal surgery: Status: Acute Assessment and plan: TPN dc'ed. tolerating regular diet. protein supplements, MVI and vitamin C added per recommendation from nutritional services (6) Constipation due to neurogenic bowel: Status: Resolved Assessment and plan: S/P diverting colostomy and now revision. aggressive bowel regimen. continues on pyridostigmine (7) Major depressive disorder: Status: Chronic Assessment and plan: Duloxetine and Buspar (8) DVT prophylaxis: Status: Chronic Assessment and plan: As above - ANKITA/SCD to LLE. On therapeutic lovenox but switching back to his Eliquis dose (9) Discharge planning issues: Status: Acute Assessment and plan: patient no longer requiring transfer to [facility]. he is tolerating his diet but needs continued antibiotics for another 3 weeks. He would benefit from swing bed status. I will discuss this w/ surgery tomorrow. If they feel he is medically/surgically stable for swing then we can transition tomorrow w/ P.T. and O.T. Subjective Subjective Interval history since last seen: Patient indicated that he has had a lot of muscle spasms and would like his baclofen given on scheduled basis rather than prn. He would also like his benadryl and valium at night to help him sleep. I examined patient while wound care nurse was repacking his ischial wounds and putting a new wound vaccuum in place. Oma later came to me to express that she feels that is ischial wounds had been making good progress while he was on Vancomycin but over the past week his wound has not been progressing and may be slightly larger. He was on Vancomcyin from 03/17 to 04/01. Ceftiraxone 03/19-03/22. Zosyn 03/22-04/05 and resumed on 04/07. Wound cultures from left buttock 03/14 Proteus miriabilis, Staph aureus (MSSA), and Corynebacterium. Urine culture 03/14 Staph epi. Blood cultures 03/16, 03/19, 03/22 and 04/02 all no growth. Urine cultures: 03/11 Staph epi, 03/14 Staph epi, 03/19 gram neg bryon and mixed GP daphne, 04/03 yeast. Wendy Skinner had previously spoken w/ I.D. at [facility] who indicated that patient would need recurrent treatment for the osteomyelitis every couple weeks and originally recommended only 2 weeks of Vancomycin and to continue the Zosyn. It sounds to me that the I.D. provider was suggesting pulse therapy which does not make sense to this provider. Usual treatment is standard 6 weeks of parenteral antibiotics and surgical debridement of wounds. Now that the patient has had a diverting colostomy to control the infectious source of his wounds, he should respond to wound care and antibiotics however the wound care nurse has expressed concerns that his wounds are ceasing to improve and in fact have regressed slightly. I reviewed her notes and pictures. I reviewed the wound care nurses notes and pictures from 03/07, 03/14, 03/19, 03/26, 04/04 and 04/09. The wounds have been progressively improving. Sizes of wounds are as follows: 03/07 L. ischial tuberosity (length x width x depth) 6 cm x 5cm x 3.5 cm, R. ischial tuberosity 3.9 x 3.4 x 2.3 03/14 LIT: 6.5 X 4 X 3.5 (2 cm tunnel @ 9, 1 o'clock), RIT: 6 X 5 X3.5 ( 2 cm tunnel @ 9, 1) 03/19 LIT: 5.5 x 5 x3.5 ( 1 cm tunnel @ 9, 3); RIT: 4 x 3.5 x 3.5 (1 cm tunnel @ 11, 3) 03/26 LIT: 4.5 x 5 x 2.8 (4.5 cm tunnel); RIT: 4.5 x 5 x 2.8 (4.5 cm tunnel) 04/04 LIT: 2.4 x 3 x 3 (3.8 cm tunnel @ 12, 5 cm tunnel @ 2); RIT 2.4 x 3 x 3 (3.8 cm tunnel @ 12, 5 cm tunnel @ 2) 04/09 LIT: 3.5 x 4 x 2.5 (4 cm tunnel @ 1); RIT: 3 x 3 x2.5 (3 cm tunnel @ 12 to 1 oclock) Exam Narrative Exam Narrative: Micha is alert and conversant w/ me and the staff. No acute pain. Lungs are clear heart is regular Abdomen soft and nondistended w/ ostomy draining stool Buttocks wounds examined although wound care nurse had already started the packing. some surrounding edema to the buttocks. He also has some dependent edema in his legs and scrotum and his elbows and arms Objective Last Vital Signs Temp 36.0 C L 04/09/21 16:19 Pulse 82 04/09/21 16:19 Resp 19 04/09/21 16:19 BP 134/77 04/09/21 16:19 Pulse Ox 97 04/09/21 16:19 Laboratory Results - last 24 hr 04/08/21 04/08/21 04/09/21 08:30 16:00 06:20 WBC RBC Hgb Hct MCV MCH MCHC RDW Plt Count MPV Immature Gran % Neutrophils % Lymphocytes % Monocytes % Eosinophils % Basophils % Nucleated RBC % Absolute Neutrophils Absolute Lymphocytes Absolute Monocytes Absolute Eosinophils Absolute Basophils Sodium 139 Potassium 4.0 Chloride 104 Carbon Dioxide 28.4 Anion Gap 6.6 BUN 17 Creatinine 0.7 Estimated GFR/1.73 m2 >= 60.00 Glucose 87 POC Glucose Cancelled Cancelled Calcium 9.0 04/09/21 04/09/21 04/09/21 06:20 08:30 16:00 WBC 5.57 RBC 3.21 L Hgb 8.7 L Hct 27.6 L MCV 86.0 MCH 27.1 MCHC 31.5 L RDW 17.0 H Plt Count 255 MPV 10.3 Immature Gran % 1.1 Neutrophils % 64.7 Lymphocytes % 19.7 Monocytes % 8.3 Eosinophils % 5.7 Basophils % 0.5 Nucleated RBC % 0 Absolute Neutrophils 3.60 Absolute Lymphocytes 1.10 L Absolute Monocytes 0.46 Absolute Eosinophils 0.32 Absolute Basophils 0.03 Sodium Potassium Chloride Carbon Dioxide Anion Gap BUN Creatinine Estimated GFR/1.73 m2 Glucose POC Glucose Cancelled Cancelled Calcium 04/10/21 04/10/21 04/11/21 08:30 16:00 08:30 WBC RBC Hgb Hct MCV MCH MCHC RDW Plt Count MPV Immature Gran % Neutrophils % Lymphocytes % Monocytes % Eosinophils % Basophils % Nucleated RBC % Absolute Neutrophils Absolute Lymphocytes Absolute Monocytes Absolute Eosinophils Absolute Basophils Sodium Potassium Chloride Carbon Dioxide Anion Gap BUN Creatinine Estimated GFR/1.73 m2 Glucose POC Glucose Cancelled Cancelled Cancelled Calcium 04/11/21 04/12/21 04/12/21 16:00 08:30 16:00 WBC RBC Hgb Hct MCV MCH MCHC RDW Plt Count MPV Immature Gran % Neutrophils % Lymphocytes % Monocytes % Eosinophils % Basophils % Nucleated RBC % Absolute Neutrophils Absolute Lymphocytes Absolute Monocytes Absolute Eosinophils Absolute Basophils Sodium Potassium Chloride Carbon Dioxide Anion Gap BUN Creatinine Estimated GFR/1.73 m2 Glucose POC Glucose Cancelled Cancelled Cancelled Calcium 04/13/21 04/13/21 08:30 16:00 WBC RBC Hgb Hct MCV MCH MCHC RDW Plt Count MPV Immature Gran % Neutrophils % Lymphocytes % Monocytes % Eosinophils % Basophils % Nucleated RBC % Absolute Neutrophils Absolute Lymphocytes Absolute Monocytes Absolute Eosinophils Absolute Basophils Sodium Potassium Chloride Carbon Dioxide Anion Gap BUN Creatinine Estimated GFR/1.73 m2 Glucose POC Glucose Cancelled Cancelled Calcium
[2021-04-09] MEDS: Acetaminophen 500 MG TAB 1000 MG PO (20:43)
[2021-04-09] MEDS: diphenhydrAMINE 25 MG CAP PO (22:01)
[2021-04-09] MEDS: diazePAM 5 MG TAB PO (22:01)
[2021-04-09 23:39] VITALS: BP 122/80; PULSE 87; RESP 16; TEMP 36.6; O2SAT 97
[2021-04-10] MEDS: PIPERACILLIN/TAZO 4.5 GM in Normal Saline 100 ML IVPB (05:21)
[2021-04-10 07:13] VITALS: BP 137/78; PULSE 91; RESP 17; TEMP 36.8; O2SAT 96
[2021-04-10] MEDS: Pantoprazole 40 MG TABCR PO (08:41)
[2021-04-10] MEDS: Senna TAB 2 TAB PO (08:41)
[2021-04-10] MEDS: Multivitamin w/Minerals TAB 1 TAB PO (08:41)
[2021-04-10] MEDS: Polyethylene Glycol 3350 17 GM PACKET PO (08:42)
[2021-04-10] MEDS: Docusate Sodium 100 MG CAP PO (08:42)
[2021-04-10] MEDS: Apixaban 5 MG TAB PO (08:42)
[2021-04-10] MEDS: Spironolactone 25 MG TAB PO (08:42)
[2021-04-10] MEDS: DULoxetine 30 MG CAP PO (08:42)
[2021-04-10] MEDS: amLODIPine 5 MG TAB 10 MG PO (08:42)
[2021-04-10] MEDS: Baclofen 10 MG TAB 5 MG PO (08:42)
[2021-04-10] MEDS: Protein Nutritional Supplement 16 GM 1 OUNCE PACKET PO (08:42)
[2021-04-10] MEDS: busPIRone 5 MG TAB 10 MG PO (08:42)
[2021-04-10] MEDS: Ascorbic Acid 500 MG TAB PO (08:42)
[2021-04-10] MEDS: Normal Saline Flush 10 ML SYR 20 ML IVP (08:43)
[2021-04-10] MEDS: Acetaminophen 500 MG TAB 1000 MG PO (08:51)
--- NOTE | 2021-04-10 09:21 | PDOC.CMPRO ---
- If Service Date Differs Date of service: 04/10/21 Time of Service: 09:21 Care Management Progress Note S/O: Favio was lying in bed asleep when CM came to meet with him. He will be transitioned to swingbed -1 status later today to continue with his rehabilitation. A: Favio is a 55 year old man admitted to [facility] on 02/22/21 with obstipation. He is now being treated for osteomyelitis of the sacrum and has had a colostomy. P: Favio continues to await terminal carman medicaid approval. Without a guaranteed payer source, jail facilities are unwilling to accept him in transfer. Referrals have been sent to most facilities in [place] as well as to some in other [facility]. Referrals have also been sent to rehab hospitals throughout [place] but none have accepted him. [facility] has been told that he is not acute enough at this point to require intense inpatient acute rehab. When disposition is found, Favio will follow up with their provider's plan of care. Favio will transport via ambulance coordinated by [facility]. CM will continue to support Favio and his family and assess for ongoing discharge concerns.
[2021-04-10] MEDS: LORazepam 2 MG/ML VIAL IV (09:39)
[2021-04-10] MEDS: Normal Saline Flush 10 ML SYR IVP (09:39)
--- NOTE | 2021-04-10 10:42 | W.PM.PROGNOT ---
Date of Service Date of service: 04/10/21 Time of Service: 10:42 Assessment and Plan Assessment and plan (1) Large bowel obstruction: Status: Resolved Assessment and plan: POD #11 s/p ex lap, bowel decompression, takedown of ostomy and new ostomy creation Stoma is pink Light brown liquid noted in colostomy bag. Has some air in the bag Abdomen is soft Continue Regular diet Continue bowel regimen Agree with hospitalist's assessment and consideration for transitioning to swing bed status for continued Antibiotics. (2) Neurogenic bowel: Status: Acute Assessment and plan: . See above (3) Constipation due to neurogenic bowel: Status: Resolved Assessment and plan: As above (4) Acute osteomyelitis of sacrum: Status: Acute Assessment and plan: Antibiotics per Hospitalist team (5) Decubitus ulcer of buttock, stage 4: Status: Acute Assessment and plan: Wound vac in place. There is granulation tissue. NO debridements needed at this time Qualifiers: Laterality: left Qualified Code(s): L89.324 - Pressure ulcer of left buttock, stage 4 (6) Quadriplegia: Status: Chronic (7) UTI (urinary tract infection): Status: Acute Assessment and plan: Surpapubic pereyra in place Yellow colored urine in pereyra bag Qualifiers: Urinary tract infection type: catheter-associated UTI Indwelling urinary catheter type: indwelling urethral catheter Encounter type: initial encounter Qualified Code(s): T83.511A - Infection and inflammatory reaction due to indwelling urethral catheter, initial encounter; N39.0 - Urinary tract infection, site not specified (8) Neurogenic bladder: Status: Chronic Assessment and plan: suprapubic pereyra in place (9) Hx of caloric malnutrition: Status: Acute Assessment and plan: Regular diet. Nutrition following (10) DVT (deep venous thrombosis): Status: Chronic Qualifiers: DVT location: lower extremity Affected thrombotic vein of extremity: femoral Chronicity: acute Laterality: right Qualified Code(s): I82.411 - Acute embolism and thrombosis of right femoral vein Subjective Subjective Interval history since last seen: Patient reports that he is tired today, but otherwise feeling good. Exam Const General: cooperative and comfortable Orientation: alert and oriented x3 Resp Effort & Inspection: normal respiratory effort, no audible wheezes and no cough GI Palpation: soft, no guarding and nontender Objective Last Vital Signs Temp 36.8 C 04/10/21 07:13 Pulse 91 H 04/10/21 07:13 Resp 17 04/10/21 07:13 BP 137/78 04/10/21 07:13 Pulse Ox 96 04/10/21 07:13
[2021-04-10] MEDS: IRON SUCROSE COMPLEX 300 MG in Normal Saline 250 ML 167 MG IVPB (10:44)
[2021-04-10] MEDS: Lidocaine 5% Patch 2 PATCH TP (10:45)
--- NOTE | 2021-04-10 10:57 | DSE_ITS ---
Date of service: 04/10/21 Time of Service: 10:58 DS: Diagnosis Discharge Diagnosis (1) Large bowel obstruction: Status: Resolved (2) Neurogenic bowel: Status: Chronic (3) Constipation due to neurogenic bowel: Status: Resolved (4) Acute osteomyelitis of sacrum: Status: Acute (5) Decubitus ulcer of buttock, stage 4: Status: Acute (6) Quadriplegia: Status: Chronic (7) UTI (urinary tract infection): Status: Resolved (8) Neurogenic bladder: Status: Chronic (9) Hx of caloric malnutrition: Status: Chronic (10) DVT (deep venous thrombosis): Status: Chronic Discharge Plan Disposition Patient Disposition: [facility] SWING BED LEVEL 1 Condition: Improving Discharge Details Reason For Visit: Osteo of left buttocks, UTI, Quadrapelgic Admit Date/Time: 03/17/21 16:06 Admit Provider: Boo Olson Attending Provider: Boo Olson Primary Care Provider: Rayna Pino Hospital Course Hospital Course: 55-year-old white male quadriplegic originally transferred from [facility] and admitted to [facility] February 20 2021 after a fall and found to have severe constipation due to neurogenic bowels. He has a suprapubic catheter in place and gets frequent UTIs. Please see discharge note from that admission on March 02, 2021. His constipation was treated with the aggressive bowel regiment and he was treated for UTIs with 3 days of ceftriaxone and 7 days of Levaquin. He was subsequently transitioned into swing bed status March 02, 2021 through March 17, 2021. He was in swing bed status while he was being treated for his ischial tuberosity decubiti wounds. He had multiple debridements performed initially February 25 and February 26 and had a wound vacuum placed. Subsequently underwent debridement March 15, 2021 when he was found to have osteomyelitis involving left ischial tuberosity. Prior to that he has had an MRI February 28, 2021 that showed no evidence of osteomyelitis. However subsequent MRI scan performed March 18, 2021 was consistent with left ischial tuberosity osteomyelitis. Bone biopsy taken during the debridement on March 15, 2021 grew methicillin sensitive staph aureus rare colonies and Proteus mirabilis rare colonies as well as rare Bacteroides fragilis and anaerobic gram-negative rods and anaerobic gram-positive cocci. Patient was treated with vancomycin from March 17, 2021 through April 01, 2021. He had concomitant dosing of ceftriaxone from March 19 through March 22, 2021 afterwards he was put on Zosyn from March 22, 2021 through April 05, 2021 at which point Zosyn was inadvertently stopped but then resumed on April 07, 2021. Patient underwent a diverting colostomy on March 20, 2021 to help remove the source of stool from going to his ischium in order to allow his wounds to heal up. Postoperatively patient developed a large bowel obstruction which did not respond to laxatives and stool softeners and Relistor. He underwent emergency exploratory laparotomy and decompression of his bowels and takedown of the previous colostomy and creation of a new colostomy on March 31, 2021. Postoperatively he was managed in the intensive care unit where he continued to receive Zosyn and was put on TPN. He developed a postoperative ileus which required treatment with pyridostigmine. Patient responded to the pyridostigmine and patient began having bowel movements again there is no colostomy. Patient continued to receive wound care treatment by the wound care nurses including placement of wound VAC over both ischial tuberosities. Please see the wound care nurses notes for details. I reviewed all of her notes dating back to March 07, 2021 through the present. There is been progressive improvement in the size of his wounds. Initially the left ischial tuberosity wound was 6 x 5 x 3.5 cm and the right ischial tuberosity was 3.9 x 3.4 x 2.2 cm. These wounds have gotten down to a small dose of the left ischial tuberosity being 2.4 x 3 x 3 cm in the right ischial tuberosity getting down to 2.4 cm x 3 cm x 3 cm as of April 04, 2021. However reevaluation on April 09, 2021 showed a slight increase in the size of the wounds with the left ischial tuberosity being 3.5 cm x 4 cm x 2.5 cm and the right ischial tuberosity wound being 3 cm x 3 cm x 2.5 cm. Wound care nurse expressed concerns that since the patient's been off vancomycin but it seems that the wound has not been healing up any further and may actually be regressing. There is no purulent drainage but she indicated that there seems to be a biofilm over the wounds. I reviewed our hospitalist notes from earlier in this patient's stay and apparently an infectious disease physician was contacted although is not clear as to which institution with it was [facility] or [facility] who was contacted. Please see Eliane Talamantes's note from March 18, 2021 for details. Apparently the infectious disease specialist indicated that the patient's osteomyelitis can be a chronic issue and had recommended only a 2-week course with vancomycin but continue treatment with Zosyn. At the time of this dictation I have reached out to the call center at the [facility] requesting an infectious disease telephone consultation with Dr. Jaime Ho to review the best course of treatment. Is been my experience that generally osteomyelitis requires 6 weeks of continuous targeted antimicrobial therapy. Based on the fact that the bone culture taken from March 15 was polymicrobial in nature including MSSA and Proteus mirabilis and Bacteroides fragilis would suggest that the patient would require coverage for 6 weeks. As of this dictation the patient has been on Zosyn since Mar 22 2021 and May 03, 2021 would be 6 weeks completion. Plan to start the patient on daptomycin unless Dr. Ho recommends otherwise. Treat the patient with daptomycin concomitantly for another month completing therapy on May 12, 2021. Home Meds and New Rx's Prescriptions: No Action acetaminophen 500 mg capsule 1,000 mg PO Q8H PRN PRNRF: 0 albuterol sulfate 90 mcg/actuation aerosol powdr breath activated 2 inh inhalation Q4H PRNRF: 0 apixaban 5 mg tablet 5 mg PO BID RF: 0 buspirone 10 mg tablet 10 mg PO TID RF: 0 docusate sodium [Colace] 100 mg capsule 100 mg PO BID RF: 0 bisacodyl [Dulcolax (bisacodyl)] 10 mg suppository 10 mg [place] DAILY PRNRF: 0 Lactobacillus acidoph-L.bulgar [Floranex] 1 million cell tablet 1 tab PO TID RF: 0 magnesium hydroxide 400 mg/5 mL suspension 30 ml PO DAILY PRNRF: 0 melatonin 5 mg tablet 5 mg PO HS PRNRF: 0 midodrine 2.5 mg tablet 5 mg PO BID RF: 0 polyethylene glycol 3350 [Miralax] 17 gram/dose powder 17 g PO DAILY RF: 0 mirtazapine 45 mg tablet 45 mg PO QHS RF: 0 senna 8.6 mg capsule 17.2 mg PO BID RF: 0 tizanidine 2 mg capsule 4 mg PO Q6H PRNRF: 0 diclofenac sodium [Voltaren] 1 % gel 1 applic topical Q6H PRNRF: 0 baclofen 5 mg Tablet 5 mg PO Q6H PRNRF: 0 Fleet Enema 19-7 gram/118 mL Enema 118 ml CO PRN PRNRF: 0 ondansetron HCl [Zofran] 4 mg Tablet 4 mg PO Q8H PRNRF: 0 zolpidem 5 mg Tablet 5 mg PO HS RF: 0 Discharge Instructions Activity:: Activity as Tolerated Equipment/Supplies:: No Equipment Needed Diet:: Normal Diet DS: Summary Time Spent with Patient providing and/or coordinating discharge services: Greater than 30 minutes Status at Discharge Functional status at discharge: bed bound Overall status at discharge: patient is progressing back to baseline Mental Status: mental status grossly normal Speech and Movement: speech clear and other (quadriplegia w/ some movement of upper extremities but no fine motor skills) Mood: congruent mood Affect: normal affect Exam Narrative Exam Narrative: Micha is alert and conversant w/ me and the staff. No acute pain. Lungs are clear heart is regular Abdomen soft and nondistended w/ ostomy draining stool Buttocks wounds examined although wound care nurse had already started the packing. some surrounding edema to the buttocks. He also has some dependent edema in his legs and scrotum and his elbows and arms Psych Mental Status: mental status grossly normal Speech and Movement: speech clear and other (quadriplegia w/ some movement of upper extremities but no fine motor skills) Mood: congruent mood Affect: normal affect DS: Data Vitals/I&O Vitals and I&O: Vital Signs Temperature 36.8 C 04/10/21 07:13 Temperature Source Tympanic 04/10/21 07:13 Pulse 91 H 04/10/21 07:13 Pulse Rhythm Regular 04/10/21 01:12 Pulse 69 04/01/21 13:01 Respiratory Rate 17 04/10/21 07:13 Respiratory Effort Non-Labored 04/10/21 01:12 Respiratory Depth Normal 04/10/21 01:12 Respiratory Pattern Normal 04/10/21 01:12 Blood Pressure 137/78 04/10/21 07:13 Blood Pressure Mean 55 04/01/21 13:01 Blood Pressure Position Supine 04/01/21 12:30 Pulse Oximetry 96 04/10/21 07:13 Oxygen Delivery Method Room Air 04/10/21 07:13 Oxygen Flow Rate 0 04/10/21 07:13 Pain Level 3 04/10/21 08:51 Comment 04/07/21 15:36 Intake & Output 04/09/21 04/09/21 04/10/21 11:59 23:59 11:59 Intake Total 740 / 1200 460 / 1200 370 / 370 Output Total 2975 / 4450 1475 / 4450 4750 / 4750 Balance -2235 / -3250 -1015 / -3250 -4380 / -4380 Intake: IV 260 / 360 100 / 360 120 / 120 Oral 480 / 840 360 / 840 250 / 250 Output: Urine 2850 / 4100 1250 / 4100 4300 / 4300 Stool 125 / 350 225 / 350 450 / 450 Other: Urine Color Yellow Yellow Yellow Urine Appearance Clear Clear Clear PFSH Medical History (Updated 04/10/21 @ 10:58 by Boo Olson) Acute embolism and thrombosis of deep vein of right lower extremity Anxiety disorder C. difficile colitis Dislocation of C6/C7 cervical vertebrae DVT (deep venous thrombosis) Fall down embankment Fusion of spine Hypotension Major depressive disorder Neurogenic bladder Quadriplegia Social History Smoking/Tobacco Use Status: Never Smoking risk assessment performed?: Yes Alcohol Intake: current Alcohol Intake frequency: a few times a week Drug use: Occasionally Substance use type: marijuana Do you feel safe at home: Yes Do you feel safe in your relationship?: Yes
--- NOTE | 2021-04-11 12:41 | OTDS_ITS ---
Date of service: 04/11/21 Time of Service: 12:41 Occupational Therapy Notes Occupational Therapy Inpatient Acute level of care Discharge Summary Date: 04/11/21 Dates of Service: 03/27/21-04/11/21 Referring Doctor: Eliane Tolliver NP OT Orders: Non-Urgent Precautions: Full, Fall, Standard PATIENT PROFILE/ADMITTING DIAGNOSIS: Pt is a 55 year old male who presented to the ED from SNF for the following dx of major depressive disorder, quaridplegia, UTI, decubitus skin ulcers, constipation, and neurogenic bladder. He is discharged today as he is transitioning back to [facility] [place] [place] B1 level of care. Past Medical History: Medical History (Updated 02/20/21 @ 22:10 by Lauri Larry MD) Acute embolism and thrombosis of deep vein of right lower extremity Anxiety disorder C. difficile colitis Dislocation of C6/C7 cervical vertebrae Fall down embankment Fusion of spine Hypotension Major depressive disorder Neurogenic bladder Quadriplegia Social History/Home Situation: Pt oreviously residing at SNF where his DME needs are met. He is functionally requiring what he reports as Max (A) for everything. He can perform his eating routines although notes that its a mess for him and he gets everything all over him. He would like to have better function of his (B) UE. His hands are currently in a contracted position which is bothersome to him. Equipment owned/DME: DME needs met by [facility] SUBJECTIVE: NT OBJECTIVE: ROM: RUE shoulder flexion WFL but sore, elbow WFL and sore, wrist extension is fair, digits in contracted position L UE shoulder flexion WFL but sore, elbow WFL sore, wrist extension is fair, digits in contracted position STRENGTH: RUE Mask Layout Designer strength is weak unable to fully grasp digits LUE Mask Layout Designer strength is weak unable to fully grasp digits SENSATION: decreased sensation in (B) BALANCE: Static sitting Good Dynamic Sitting Good ASSESSMENT: Patient is a 55-year-old male referred to occupational therapy seprvices with diagnosis of major depressive disorder, quaridplegia, UTI, decubitus skin ulcer, constipation, neurogenic bladder who recently under went a colostomy, aspiration of airway and is transitioning back to SWG B1 level of care. Pt is able to eat again and is making gains in decreased contracture risk. Functionally pts (B) UE are very swollen which is causing pt increased pain. GOALS- progressing towards. 1. Grooming- pt will be mod (I) with brushing his teeth with mod vc throughout 2. Dressing- Pt will be mod (A) with don and doffing shirt 3. Bathing- pt will be able to (I) wash his face and (B) UE 4. Pt will hold his fork and be (I) food to mouth for 1 meal per day with progression based on functional activity tolerance PLAN OF CARE/TREATMENT PLAN: Discharge acute level of care and re-evaluate under SWG B1 DISCHARGE RECOMMENDATIONS Return to SNF vs. Home with 24 hour care givers. TREATMENT TIME/MINUTES/CODES N/A Michelle Pearce, OTR/L [facility]
== END 2021-04-10 13:19 | disposition swing bed (61) | DRG 329 ==
LOC: MS 03-18 12:49 → ICU 03-19 22:11 → MS 03-21 16:03 → ICU 03-23 13:53 → MS 03-27 14:13 → ICU 03-31 05:22 → MS 04-01 13:38
PROVIDERS: Family Medicine; General Practice; Internal Medicine; Nurse Practitioner Family; Surgery; Admitting Provider Internal Medicine; PCP Nurse Practitioner Family; Visit Provider Internal Medicine
PROC: (CPT 44320; principal; 2021-03-20 12:00)
DX: K59.2 Neurogenic bowel, not elsewhere classified (principal); L89.314 Pressure ulcer of right buttock, stage 4; L89.324 Pressure ulcer of left buttock, stage 4; G82.50 Quadriplegia, unspecified; M46.28 Osteomyelitis of vertebra, sacral and sacrococcygeal region; T83.511A Infection and inflammatory reaction due to indwelling urethral catheter, initial encounter; N39.0 Urinary tract infection, site not specified; K56.7 Ileus, unspecified; M86.8X8 Other osteomyelitis, other site; G90.3 Multi-system degeneration of the autonomic nervous system; K91.30 Postprocedural intestinal obstruction, unspecified as to partial versus complete; K94.09 Other complications of colostomy; K91.2 Postsurgical malabsorption, not elsewhere classified; B95.7 Other staphylococcus as the cause of diseases classified elsewhere; N31.8 Other neuromuscular dysfunction of bladder; Z93.51 Cutaneous-vesicostomy status; F41.9 Anxiety disorder, unspecified; F32.9 Major depressive disorder, single episode, unspecified; I95.9 Hypotension, unspecified; B96.4 Proteus (mirabilis) (morganii) as the cause of diseases classified elsewhere; K59.09 Other constipation; E87.6 Hypokalemia; D50.9 Iron deficiency anemia, unspecified
CPT/HCPCS: 44320 ×2; 51705; 44620; 36410; 36415; 36573; 36592; 71045; 72197; 80048; 80053; 84145; 85027; 86850; 86900; 86901; 86920; 87040; 88305; 97110; 97140; 97162; 97163; 97166; 97167; 97530; 97535; J1650; 74018; 74177; 80202; 81003; 81015; 82728; 83540; 83550; 83605; 83735; 84100; 84134; 85014; 85018; 85025; 85045; 85610; 85730; 86140; 87086; 88304; 93005; 93010; 93306; 93971; 99223; 99232; 99233; 99239; 99291; J0131; J0690; J0696; J0780; J1100; J1200; J1335; J1756; J1885; J1941; J2001; J2060; J2250; J2370; J2405; J2543; J2704; J2765; J3010; J3360; J3475; J3480; J3490; P9016

== ENCOUNTER 2021-04-10 12:53 | Inpatient (IN) | payer BC, SELFPAY ==
--- NOTE | 2021-04-10 13:00 | HPE_ITS ---
Date of service: 04/10/21 Time of Service: 13:01 Assessment and Plan Assessment and plan (1) Acute osteomyelitis of sacrum: Status: Acute Assessment and plan: 4 more weeks of antibiotics w/ Cefepime and Metronidazole. Weekly labs: CBC, CMP, CRP (2) Decubitus ulcer of buttock, stage 4: Status: Acute Assessment and plan: wound care w/ wound vacuum change weekly. monitor progress. Qualifiers: Laterality: left Qualified Code(s): L89.324 - Pressure ulcer of left buttock, stage 4 (3) Malnutrition following gastrointestinal surgery: Status: Acute Assessment and plan: monitor labs and nutritional intake, continue protein supplements, MVI, folic acid. (4) Iron deficiency anemia: Status: Acute Assessment and plan: will give one more dose of Venofer tomorrow then recheck his CBC in one week (5) S/P colostomy: Status: Acute Assessment and plan: colostomy seems to be working welll and hopefully his ischial wounds will heal now that the diverting colostomy is keeping his buttocks clean. (6) Constipation due to neurogenic bowel: Status: Resolved Assessment and plan: cont. stool regimen w/ stool softeners and pyridostigmine. (7) Major depressive disorder: Status: Chronic Assessment and plan: continue Buspar and Duloxetine (8) Neurogenic bladder: Status: Chronic Assessment and plan: continue suprapubic catheter w/ monthly changes (9) DVT (deep venous thrombosis): Status: Chronic Assessment and plan: cont. Apixaban for chronic DVT of right femoral vein Qualifiers: Affected thrombotic vein of extremity: femoral Chronicity: acute DVT location: lower extremity Laterality: right Qualified Code(s): I82.411 - Acute embolism and thrombosis of right femoral vein (10) Quadriplegia: Status: Chronic Assessment and plan: cont. P.T. to work with patient to try to improve his upper body strength to facilitate his care upon discharge from the hospital. He plans to live with the mother of his children (11) DNR (do not resuscitate): Status: Acute Assessment and plan: COLST on file for DNR order from 03/18/2021 signed by patient and Dr. Zhu (12) Discharge planning issues: Status: Acute Assessment and plan: patient will remain on swing bed status for duration of his antibiotics and while receiving in patient P.T. He plans to live w/ the mother of his childrenNicki History of Present Illness History of Present Illness Chief Complaint: osteomyelitis; ischial tuberosity ulcers Narrative: 55-year-old white male quadriplegic originally transferred from [facility] and admitted to [facility]. February 20 2021 after a fall and found to have severe constipation due to neurogenic bowels. He has a suprapubic catheter in place and gets frequent UTIs. Please see discharge note from that admission on March 02, 2021. His constipation was treated with the aggressive bowel regiment and he was treated for UTIs with 3 days of ceftriaxone and 7 days of Levaquin. He was subsequently transitioned into swing bed status March 02, 2021 through March 17, 2021. He was in swing bed status while he was being treated for his ischial tuberosity decubiti wounds. He had multiple debridements performed initially February 25 and February 26 and had a wound vacuum placed. Subsequently underwent debridement March 15, 2021 when he was found to have osteomyelitis involving left ischial tuberosity. Prior to that he has had an MRI February 28, 2021 that showed no evidence of osteomyelitis. However subsequent MRI scan performed March 18, 2021 was consistent with left ischial tuberosity osteomyelitis. Bone biopsy taken during the debridement on March 15, 2021 grew methicillin sensitive staph aureus rare colonies and Proteus mirabilis rare colonies as well as rare Bacteroides fragilis and anaerobic gram-negative rods and anaerobic gram-positive cocci. Patient was treated with vancomycin from March 17, 2021 through April 01, 2021. He had concomitant dosing of ceftriaxone from March 19 through March 22, 2021 afterwards he was put on Zosyn from March 22, 2021 through April 05, 2021 at which point Zosyn was inadvertently stopped but then resumed on April 07, 2021. Patient underwent a diverting colostomy on March 20, 2021 to help remove the source of stool from going to his ischium in order to allow his wounds to heal up. Postoperatively patient developed a large bowel obstruction which did not respond to laxatives and stool softeners and Relistor. He underwent emergency exploratory laparotomy and decompression of his bowels and takedown of the previous colostomy and creation of a new colostomy on March 31, 2021. Postoperatively he was managed in the intensive care unit where he continued to receive Zosyn and was put on TPN. He developed a postoperative ileus which required treatment with pyridostigmine. Patient responded to the pyridostigmine and patient began having bowel movements again there is no colostomy. Patient continued to receive wound care treatment by the wound care nurses including placement of wound VAC over both ischial tuberosities. Please see the wound care nurses notes for details. I reviewed all of her notes dating back to March 07, 2021 through the present. There is been progressive improvement in the size of his wounds. Initially the left ischial tuberosity wound was 6 x 5 x 3.5 cm and the right ischial tuberosity was 3.9 x 3.4 x 2.2 cm. These wounds have gotten down to a small dose of the left ischial tuberosity being 2.4 x 3 x 3 cm in the right ischial tuberosity getting down to 2.4 cm x 3 cm x 3 cm as of April 04, 2021. However reevaluation on April 09, 2021 showed a slight increase in the size of the wounds with the left ischial tuberosity being 3.5 cm x 4 cm x 2.5 cm and the right ischial tuberosity wound being 3 cm x 3 cm x 2.5 cm. Wound care nurse expressed concerns that since the patient's been off vancomycin but it seems that the wound has not been healing up any further and may actually be regressing. There is no purulent drainage but she indicated that there seems to be a biofilm over the wounds. I reviewed our hospitalist notes from earlier in this patient's stay and apparently an infectious disease physician was contacted although is not clear as to which institution with it was [facility] or [facility] who was contacted. Please see Eliane Talamantes's note from March 18, 2021 for details. Apparently the infectious disease specialist indicated that the patient's osteomyelitis can be a chronic issue and had recommended only a 2-week course with vancomycin but continue treatment with Zosyn. At the time of this dictation I have reached out to the call center at the [facility] requesting an infectious disease telephone consultation with Dr. Jaime Ho to review the best course of treatment. Is been my experience that generally osteomyelitis requires 6 weeks of continuous targeted antimicrobial therapy. Based on the fact that the bone culture taken from March 15 was polymicrobial in nature including MSSA and Proteus mirabilis and Bacteroides fragilis would suggest that the patient would require coverage for 6 weeks. As of this dictation the patient has been on Zosyn since Mar 22 2021 and May 03, 2021 would be 6 weeks completion. Plan to start the patient on daptomycin unless Dr. Ho recommends otherwise. Treat the patient with daptomycin concomitantly for another month completing therapy on May 12, 2021. I spoke w/ Dr. Ho after patient was discharged from acute care status to swing bed status. She indicated that the patient's wounds may have regressed when the Vancomycin was stoped d/t single coverage w/ Zosyn. She indicated that while Zosyn will cover MSSA this is not the ideal candidate for MSSA. She indicated that perhaps a better regimen other than putting him back on [place] ncomycin or Daptomycin which should be reserved for MRSA, is to use Cefepime or Ceftriaxone and so that we are covering for anaerobes to add the Metronidazole. If he deteriorates on this regimen then one should consider that his origninal infection may have had VRE which was not picked up in the wound/bone culture from 03/17. At that point then she would add Daptomycin to the regimen. I have stopped his Zosyn and changed to Cefepime and Metronidazole. I will continue this regimen for another 4 weeks as the patient has already been partially treated. I will check weekly inflammatory markers including CBC, CRP and continue to monitor his renal and liver function weekly w/ a CMP. I had ordered weekly CK levels since I had ordered Daptomycin however, no need for CK levels. [facility] Medical History (Updated 04/10/21 @ 10:58 by Boo Olson) Acute embolism and thrombosis of deep vein of right lower extremity Anxiety disorder C. difficile colitis Dislocation of C6/C7 cervical vertebrae DVT (deep venous thrombosis) Fall down embankment Fusion of spine Hypotension Major depressive disorder Neurogenic bladder Quadriplegia Social History Smoking/Tobacco Use Status: Never Smoking risk assessment performed?: Yes Alcohol Intake: current Alcohol Intake frequency: a few times a week Drug use: Occasionally Substance use type: marijuana Do you feel safe at home: Yes Do you feel safe in your relationship?: Yes Meds Allergies and Home Medications Allergies Allergy/AdvReac Type Severity Reaction Status Date / Time No Known Allergies Allergy Unverified 11/26/18 03:46 Home Medications Medication Instructions Recorded Confirmed Type Lactobacillus acidoph-L.bulgaricus 1 tab PO TID tab 01/29/21 04/10/21 History 1 million cell tablet acetaminophen 500 mg capsule 1,000 mg PO Q8H PRN PRN cap 01/29/21 04/10/21 History albuterol sulfate 90 mcg/actuation 2 inh INHALATION Q4H PRN 01/29/21 04/10/21 History breath activated powder inhaler apixaban 5 mg tablet 5 mg PO BID 01/29/21 04/10/21 History bisacodyl 10 mg rectal suppository 10 mg [place] DAILY PRN 01/29/21 04/10/21 History buspirone 10 mg tablet 10 mg PO TID tab 01/29/21 04/10/21 History docusate sodium 100 mg capsule 100 mg PO BID 01/29/21 04/10/21 History polyethylene glycol 3350 17 17 g PO DAILY 01/29/21 04/10/21 History gram/dose oral powder sennosides 8.6 mg capsule 17.2 mg PO BID 01/29/21 04/10/21 History baclofen 5 mg PO Q6H PRN 02/20/21 04/10/21 History ondansetron HCl [Zofran] 4 mg PO Q8H PRN 02/20/21 04/10/21 History amlodipine 10 mg PO DAILY 04/10/21 04/10/21 History ascorbic acid (vitamin C) 500 mg PO BID 04/10/21 04/10/21 History diazepam 5 mg PO QHS 04/10/21 04/10/21 History diphenhydramine HCl 25 mg PO QHS 04/10/21 04/10/21 History duloxetine 30 mg PO DAILY 04/10/21 04/10/21 History lidocaine 2 patch TOPICAL DAILY 04/10/21 04/10/21 History multivitamin,tx-minerals 1 tab PO DAILY 04/10/21 04/10/21 History [Theragran-M] pantoprazole 40 mg PO DAILY 04/10/21 04/10/21 History spironolactone [Aldactone] 25 mg PO DAILY 04/10/21 04/10/21 History tapentadol 100 mg PO Q6H PRN 04/10/21 04/10/21 History Exam Narrative Exam Narrative: Micha is alert and conversant w/ me and the staff. No acute pain. Lungs are clear heart is regular Abdomen soft and nondistended w/ ostomy draining light brown semiformed stool Decubitus wounds have wound vacuum in place. I will wait until next time this is changed to examine as I just looked at his wounds yesterday w/ the wound care nurse Extremities some dependent edema of buttocks, elbowes and legs COVID-19 Screening Have you, or household traveled for leisure in last 14 days?: No
[2021-04-10] MEDS: metroNIDAZOLE 500 MG/100 ML BAG 100 MG IVPB ×2 (14:52→21:50)
[2021-04-10] MEDS: Normal Saline Flush 10 ML SYR IVP (14:52)
[2021-04-10] MEDS: busPIRone 5 MG TAB 10 MG PO ×2 (14:53→21:31)
[2021-04-10] MEDS: Baclofen 10 MG TAB 5 MG PO ×2 (14:53→21:30)
[2021-04-10] MEDS: Docusate Sodium 100 MG CAP PO ×2 (14:53→21:31)
[2021-04-10 16:20] VITALS: BP 156/94; PULSE 75; RESP 18; TEMP 36.7; O2SAT 96
[2021-04-10] MEDS: CEFEPIME 2 GM in Normal Saline 100 ML IVPB ×2 (16:50→23:23)
[2021-04-10] MEDS: Protein Nutritional Supplement 16 GM 1 OUNCE PACKET PO (21:29)
[2021-04-10] MEDS: Apixaban 5 MG TAB PO (21:30)
[2021-04-10] MEDS: Senna TAB 2 TAB PO (21:30)
[2021-04-10] MEDS: diphenhydrAMINE 25 MG CAP PO (21:31)
[2021-04-10] MEDS: diazePAM 5 MG TAB PO (21:31)
[2021-04-10] MEDS: Ascorbic Acid 500 MG TAB PO (21:32)
[2021-04-10] MEDS: Normal Saline Flush 10 ML SYR 20 ML IVP (21:32)
[2021-04-10] MEDS: LORazepam 2 MG/ML VIAL IV (21:49)
[2021-04-10 23:00] VITALS: BP 178/90; PULSE 78; RESP 18; TEMP 36.8; O2SAT 97
[2021-04-11] MEDS: HYDROmorphone 2 MG/ML VIAL IVP ×5 (02:45→23:46)
[2021-04-11] MEDS: Normal Saline Flush 10 ML SYR IVP ×5 (02:46→17:50)
[2021-04-11] MEDS: metroNIDAZOLE 500 MG/100 ML BAG 100 MG IVPB ×3 (05:32→21:31)
[2021-04-11 07:52] VITALS: BP 136/78; PULSE 76; RESP 18; TEMP 36.1; O2SAT 98
[2021-04-11] MEDS: Polyethylene Glycol 3350 17 GM PACKET PO (08:13)
[2021-04-11] MEDS: Protein Nutritional Supplement 16 GM 1 OUNCE PACKET PO ×2 (08:13→21:00)
[2021-04-11] MEDS: LORazepam 2 MG/ML VIAL IV ×3 (08:13→13:31)
[2021-04-11] MEDS: Pantoprazole 40 MG TABCR PO (08:15)
[2021-04-11] MEDS: Senna TAB 2 TAB PO ×2 (08:15→21:02)
[2021-04-11] MEDS: DULoxetine 30 MG CAP PO (08:15)
[2021-04-11] MEDS: Apixaban 5 MG TAB PO ×2 (08:15→21:02)
[2021-04-11] MEDS: Multivitamin w/Minerals TAB 1 TAB PO (08:15)
[2021-04-11] MEDS: busPIRone 5 MG TAB 10 MG PO ×3 (08:15→21:02)
[2021-04-11] MEDS: Docusate Sodium 100 MG CAP PO ×3 (08:15→21:02)
[2021-04-11] MEDS: amLODIPine 5 MG TAB 10 MG PO (08:15)
[2021-04-11] MEDS: Baclofen 10 MG TAB 5 MG PO ×3 (08:16→21:01)
[2021-04-11] MEDS: Ascorbic Acid 500 MG TAB PO ×2 (08:16→21:02)
[2021-04-11] MEDS: Spironolactone 25 MG TAB PO (08:16)
[2021-04-11] MEDS: CEFEPIME 2 GM in Normal Saline 100 ML IVPB ×3 (08:38→23:49)
[2021-04-11] MEDS: Normal Saline Flush 10 ML SYR 20 ML IVP ×2 (08:42→21:31)
[2021-04-11] MEDS: Lidocaine 5% Patch 2 PATCH TP (09:44)
--- NOTE | 2021-04-11 11:10 | W.PM.PROGNOT ---
Date of Service Date of service: 04/11/21 Time of Service: 11:11 Objective Last Vital Signs Temp 36.1 C L 04/11/21 07:52 Pulse 76 04/11/21 07:52 Resp 18 04/11/21 07:52 BP 136/78 04/11/21 07:52 Pulse Ox 98 04/11/21 07:52
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
--- NOTE | 2021-04-11 19:12 | CM.SWINGPC ---
- If Service Date Differs Date of service: 04/10/21 Time of Service: 10:00 Swingbed Plan of Care Plan of care: SWING BED PROGRAM ACTIVITIES/DISCHARGE PLAN OF CARE ACTIVITIES PLAN Date: 04/10/21 Identified Need: Individualized activity plan Intervention/Plan: Favio is a quadriplegic with very limited use of his upper extremities and none of his lower extremities. He enjoys talking on the phone with friends and family and visiting with everyone. He watches TV occasionally but is unable to use items from the activity cart. Favio has a tablet which he uses as well. He would enjoy pet visitation and music therapy if they become available again. [place] [facility] [place]:04/10/21 Identified Need: Safe discharge plan with strong support services. Intervention/Plan: Favio's discharge plan is unclear at this point. He is awaiting [facility] long term care medicaid approval which will need to be in place before he can be placed in a facility or [facility] home. will continue to support Favio and his family and assess for discharge planning needs. [place] [facility] [place]
[2021-04-11] MEDS: diphenhydrAMINE 25 MG CAP PO (21:03)
[2021-04-11] MEDS: diazePAM 5 MG TAB PO (21:03)
[2021-04-11] MEDS: Normal Saline 500 ML 30 ML IV (21:40)
[2021-04-11 23:59] VITALS: BP 124/73; PULSE 71; RESP 16; TEMP 36.3; O2SAT 98
[2021-04-12] MEDS: metroNIDAZOLE 500 MG/100 ML BAG 100 MG IVPB ×3 (05:02→21:50)
[2021-04-12] MEDS: Normal Saline Flush 10 ML SYR IVP (06:52)
[2021-04-12] MEDS: HYDROmorphone 2 MG/ML VIAL IVP ×3 (06:53→18:36)
[2021-04-12] MEDS: Polyethylene Glycol 3350 17 GM PACKET PO (07:50)
[2021-04-12] MEDS: Protein Nutritional Supplement 16 GM 1 OUNCE PACKET PO ×2 (07:50→22:03)
[2021-04-12] MEDS: CEFEPIME 2 GM in Normal Saline 100 ML IVPB ×2 (07:50→16:51)
[2021-04-12] MEDS: amLODIPine 5 MG TAB 10 MG PO (07:51)
[2021-04-12] MEDS: Pantoprazole 40 MG TABCR PO (07:51)
[2021-04-12] MEDS: Multivitamin w/Minerals TAB 1 TAB PO (07:51)
[2021-04-12] MEDS: Senna TAB 2 TAB PO ×2 (07:51→22:00)
[2021-04-12] MEDS: Apixaban 5 MG TAB PO ×2 (07:51→21:59)
[2021-04-12] MEDS: DULoxetine 30 MG CAP PO (07:51)
[2021-04-12] MEDS: Spironolactone 25 MG TAB PO (07:51)
[2021-04-12] MEDS: Docusate Sodium 100 MG CAP PO ×3 (07:51→21:59)
[2021-04-12] MEDS: Ascorbic Acid 500 MG TAB PO ×2 (07:51→21:59)
[2021-04-12] MEDS: busPIRone 5 MG TAB 10 MG PO ×3 (07:52→21:59)
[2021-04-12] MEDS: Baclofen 10 MG TAB 5 MG PO ×2 (07:52→15:04)
[2021-04-12] MEDS: Normal Saline Flush 10 ML SYR 20 ML IVP ×2 (07:53→22:02)
[2021-04-12] MEDS: Lidocaine 5% Patch 2 PATCH TP (09:26)
[2021-04-12] MEDS: LORazepam 2 MG/ML VIAL IV ×3 (09:26→18:35)
--- NOTE | 2021-04-12 14:20 | W.NUTRFU ---
Date of service: 04/12/21 Time of Service: 14:20 Nutritional Follow up NOTE: Met with Favio today. Following regular meal plan with 100% meal completion-meal plan providing 1800 -2000 kcal, 50-60 g protein. Diet supplemented with liquid protein 1 oz TID providing additional 45 g protein. Currently meeting 100% macronutrient needs for optimal wound healing and weight maintenance. Weight up 2 lbs since admit last month. Doing well overall with transition to po intake after 16 days NPO and on TPN. Will continue to follow. Time Spent in Nutritional Counseling and Treatment: 20
--- NOTE | 2021-04-12 14:36 | PT.INTREAT ---
Date of service: 04/12/21 Time of Service: 10:00 PT Notes Visit Reasons: osteomyelitis Inpatient Physical Therapy Treatment Note [facility] Date: 04/12/2021 PRECAUTIONS: Quadriplegia C6-7, high risk for skin breakdown SUBJECTIVE: Favio is in great spirits today, as he has been enjoying celebrating his birthday with staff. He reports that he has been completing his independent UE strengthening HEP, as instructed, although still struggles with completing exercises with L UE, stating it takes him more time than with his R. OBJECTIVE: PAIN: Patient c/o L elbow pain with positioning and exercise completion THEREX: Performed PROM to B LE x~10 minutes at no charge MANUAL THERAPY: With patient in supine with B UE propped on pillows for elevation above the heart, performed retrograde effleurage massage to B UE to encourage movement of excess fluid/drainage in B UE to decrease swelling x~20 minutes. PLAN: Continue with retrograde effleurage massage to B UE for decreased swelling. Continue with PROM to B LE, and encourage continued independent completion of UE strengthening HEP. TREATMENT CODE/TIME: 20 minutes; 00549 (13:25)
--- NOTE | 2021-04-12 15:10 | CHAPLAIN ---
Favio's birthday is today. Several staff members have been in to visit him. His room is decorated and there a lots of balloons. He said he's very appreciative today. His mom is visiting this afternoon, and he expects more visitors later.
[2021-04-12 15:33] VITALS: BP 121/77; PULSE 82; RESP 17; TEMP 36.5; O2SAT 98
[2021-04-12] MEDS: Zolpidem 6.25 MG TABCR 12.5 MG PO (22:00)
[2021-04-12] MEDS: diphenhydrAMINE 25 MG CAP PO (22:00)
[2021-04-12] MEDS: Baclofen 10 MG TAB PO (22:01)
[2021-04-12 23:48] VITALS: BP 111/66; PULSE 88; RESP 18; TEMP 37; O2SAT 96
[2021-04-13] MEDS: CEFEPIME 2 GM in Normal Saline 100 ML IVPB ×3 (01:11→15:54)
[2021-04-13] MEDS: LORazepam 2 MG/ML VIAL IV ×3 (01:20→23:10)
[2021-04-13] MEDS: Normal Saline Flush 10 ML SYR IVP ×2 (01:21→06:09)
[2021-04-13] MEDS: Normal Saline 500 ML 30 ML IV (06:07)
[2021-04-13] MEDS: metroNIDAZOLE 500 MG/100 ML BAG 100 MG IVPB ×3 (06:08→21:37)
[2021-04-13 07:58] VITALS: BP 135/76; PULSE 85; RESP 18; TEMP 36.6; O2SAT 98
[2021-04-13] MEDS: Polyethylene Glycol 3350 17 GM PACKET PO (07:59)
[2021-04-13] MEDS: Protein Nutritional Supplement 16 GM 1 OUNCE PACKET PO ×2 (07:59→21:17)
[2021-04-13] MEDS: Acetaminophen 500 MG TAB 1000 MG PO ×2 (07:59→15:20)
[2021-04-13] MEDS: Normal Saline Flush 10 ML SYR 20 ML IVP ×2 (07:59→21:19)
[2021-04-13] MEDS: Ascorbic Acid 500 MG TAB PO ×2 (08:00→21:18)
[2021-04-13] MEDS: Pantoprazole 40 MG TABCR PO (08:00)
[2021-04-13] MEDS: DULoxetine 30 MG CAP PO (08:00)
[2021-04-13] MEDS: amLODIPine 5 MG TAB 10 MG PO (08:00)
[2021-04-13] MEDS: Senna TAB 2 TAB PO ×2 (08:00→21:18)
[2021-04-13] MEDS: Multivitamin w/Minerals TAB 1 TAB PO (08:00)
[2021-04-13] MEDS: busPIRone 5 MG TAB 10 MG PO ×3 (08:00→21:18)
[2021-04-13] MEDS: Spironolactone 25 MG TAB PO (08:00)
[2021-04-13] MEDS: Apixaban 5 MG TAB PO ×2 (08:00→21:18)
[2021-04-13] MEDS: Docusate Sodium 100 MG CAP PO ×3 (08:00→21:18)
[2021-04-13] MEDS: Baclofen 10 MG TAB PO ×3 (08:00→21:18)
[2021-04-13] MEDS: Lidocaine 5% Patch 2 PATCH TP (09:03)
[2021-04-13] MEDS: HYDROmorphone 2 MG/ML VIAL IVP (11:10)
[2021-04-13 15:35] VITALS: BP 106/67; PULSE 87; RESP 19; TEMP 36.9; O2SAT 95
[2021-04-13] MEDS: Zolpidem 6.25 MG TABCR 12.5 MG PO (21:17)
[2021-04-13] MEDS: diphenhydrAMINE 25 MG CAP PO (21:18)
[2021-04-13 23:05] VITALS: BP 143/89; PULSE 99; RESP 18; TEMP 37.7; O2SAT 97
[2021-04-14] MEDS: CEFEPIME 2 GM in Normal Saline 100 ML IVPB ×4 (00:18→23:34)
[2021-04-14] MEDS: metroNIDAZOLE 500 MG/100 ML BAG 100 MG IVPB ×3 (05:29→21:27)
[2021-04-14 08:26] VITALS: BP 124/74; PULSE 90; RESP 18; TEMP 36.8; O2SAT 99
[2021-04-14] MEDS: Docusate Sodium 100 MG CAP PO ×3 (08:29→20:19)
[2021-04-14] MEDS: DULoxetine 30 MG CAP PO (08:29)
[2021-04-14] MEDS: Ascorbic Acid 500 MG TAB PO ×2 (08:29→20:18)
[2021-04-14] MEDS: Multivitamin w/Minerals TAB 1 TAB PO (08:29)
[2021-04-14] MEDS: amLODIPine 5 MG TAB 10 MG PO (08:29)
[2021-04-14] MEDS: Acetaminophen 500 MG TAB 1000 MG PO ×2 (08:29→20:18)
[2021-04-14] MEDS: busPIRone 5 MG TAB 10 MG PO ×3 (08:29→20:18)
[2021-04-14] MEDS: Normal Saline Flush 10 ML SYR 20 ML IVP ×2 (08:29→20:19)
[2021-04-14] MEDS: Polyethylene Glycol 3350 17 GM PACKET PO (08:30)
[2021-04-14] MEDS: Pantoprazole 40 MG TABCR PO (08:30)
[2021-04-14] MEDS: Protein Nutritional Supplement 16 GM 1 OUNCE PACKET PO ×2 (08:30→20:19)
[2021-04-14] MEDS: Apixaban 5 MG TAB PO ×2 (08:30→20:19)
[2021-04-14] MEDS: Baclofen 10 MG TAB PO ×3 (08:30→20:18)
[2021-04-14] MEDS: Senna TAB 2 TAB PO ×2 (08:30→20:18)
[2021-04-14] MEDS: Spironolactone 25 MG TAB PO (08:30)
[2021-04-14] MEDS: Lidocaine 5% Patch 2 PATCH TP (09:08)
[2021-04-14 15:09] VITALS: BP 159/87; PULSE 76; RESP 18; TEMP 36.9; O2SAT 99
[2021-04-14] MEDS: diazePAM 5 MG TAB PO (21:28)
[2021-04-14] MEDS: Normal Saline Flush 10 ML SYR IVP (21:28)
[2021-04-14] MEDS: diphenhydrAMINE 25 MG CAP PO (21:28)
[2021-04-14 23:51] VITALS: BP 133/84; PULSE 86; RESP 17; TEMP 37.2; O2SAT 98
[2021-04-15] MEDS: HYDROmorphone 2 MG/ML VIAL IVP ×3 (01:11→14:39)
[2021-04-15] MEDS: Normal Saline Flush 10 ML SYR IVP ×6 (01:12→21:40)
[2021-04-15] MEDS: LORazepam 2 MG/ML VIAL IV (03:45)
[2021-04-15] MEDS: metroNIDAZOLE 500 MG/100 ML BAG 100 MG IVPB ×3 (05:36→21:39)
[2021-04-15 05:57] LABS: Abs Immature Grans 0.08 10^3/uL (0.0-0.06); Absolute Basophil Count 0.04 10^3/uL (0.0-0.2); Absolute Eosinophil Count 0.35 10^3/uL (0.0-0.7); Absolute Lymphocyte Count 1.64 10^3/uL (1.2-3.4); Absolute Monocyte Count 0.73 10^3/uL (0.1-0.8); Absolute Neutrophil Count 4.66 10^3/uL (1.2-6.7); Basophils % 0.5; Eosinophils % 4.7; HCT 31.5 % (40.0-50.0); HGB 9.9 g/dL (13.5-17.5); Immature Grans % 1.1; Lymphocytes % 21.9; MCH 27.4 pg (27.0-33.0); MCHC 31.4 % (32.0-36.0); MCV 87.3 fL (80-95); MPV 10.4 fL (8.0-11.0); Monocytes % 9.7; Neutrophils % 62.1; Nucleated RBC 0 %; Platelet Count 283 10^3/uL (130-400); RBC 3.61 10^6/uL (4.36-5.78); RDW 17.9 % (11.8-14.1); RDW-SD 57.1 fL
[2021-04-15 06:20] LABS: ALT 33 U/L (16-63); AST 24 U/L (15-37); Albumin 2.5 g/dL (3.4-5.0); Alkaline Phosphatase 85 U/L (46-116); Anion Gap 8.2 mmol/L (3-11); BUN 20 mg/dL (7-18); Bilirubin, Total 0.3 mg/dL (0.2-1.0); CO2 26.8 mmol/L (21.0-32.0); CREATININE 0.7 mg/dL (0.70-1.30); Calcium 9.8 mg/dL (8.5-10.1); Chloride 106 mmol/L (98-107); Glucose 90 mg/dL (74-106); Potassium 3.8 mmol/L (3.5-5.1); Sodium 141 mmol/L (136-145); Total Protein 6.3 g/dL (6.4-8.2)
[2021-04-15 07:39] VITALS: BP 119/73; PULSE 82; RESP 19; TEMP 36.4; O2SAT 98
[2021-04-15] MEDS: CEFEPIME 2 GM in Normal Saline 100 ML IVPB ×2 (07:52→15:55)
[2021-04-15] MEDS: Protein Nutritional Supplement 16 GM 1 OUNCE PACKET PO ×2 (07:52→20:40)
[2021-04-15] MEDS: Normal Saline Flush 10 ML SYR 20 ML IVP ×2 (07:53→20:41)
[2021-04-15] MEDS: amLODIPine 5 MG TAB 10 MG PO (07:53)
[2021-04-15] MEDS: busPIRone 5 MG TAB 10 MG PO ×3 (07:53→20:40)
[2021-04-15] MEDS: Polyethylene Glycol 3350 17 GM PACKET PO (07:53)
[2021-04-15] MEDS: Multivitamin w/Minerals TAB 1 TAB PO (07:53)
[2021-04-15] MEDS: Docusate Sodium 100 MG CAP PO ×3 (07:53→20:41)
[2021-04-15] MEDS: Senna TAB 2 TAB PO ×2 (07:53→20:40)
[2021-04-15] MEDS: Spironolactone 25 MG TAB PO (07:53)
[2021-04-15] MEDS: Baclofen 10 MG TAB PO ×3 (07:54→20:41)
[2021-04-15] MEDS: Ascorbic Acid 500 MG TAB PO ×2 (07:54→20:41)
[2021-04-15] MEDS: Pantoprazole 40 MG TABCR PO (07:54)
[2021-04-15] MEDS: Apixaban 5 MG TAB PO ×2 (07:54→20:41)
[2021-04-15] MEDS: DULoxetine 30 MG CAP PO ×2 (08:13→09:44)
--- NOTE | 2021-04-15 08:46 | OT.INIE ---
Occupational Therapy Notes Inpatient Occupational Therapy SB1 Evaluation Date: 04/15/21 Referring Doctor: Boo Olson MD OT Orders: Non-Urgent Precautions: Full, Fall, Standard PATIENT PROFILE/ADMITTING DIAGNOSIS: Pt is a 56 year old male who presented to the ED from SNF for the following dx of major depressive disorder, quaridplegia, UTI, decubitus skin ulcers, constipation, and neurogenic bladder. He is re-evaluated at todays session under SB1 level of care. Past Medical History: Medical History (Updated 02/20/21 @ 22:10 by Lauri Larry MD) Acute embolism and thrombosis of deep vein of right lower extremity Anxiety disorder C. difficile colitis Dislocation of C6/C7 cervical vertebrae Fall down embankment Fusion of spine Hypotension Major depressive disorder Neurogenic bladder Quadriplegia Social History/Home Situation: Pt previously residing at SNF where his DME needs are met. He is functionally requiring what he reports as Max (A) for everything. He can perform his eating routines although notes that its a mess for him and he gets everything all over him. He would like to have better function of his (B) UE. His hands were in a contracted position which was bothersome to him, this has improved since being admitted. Equipment owned/DME: DME needs met by SNF previously SUBJECTIVE: Pt was lying in bed when OT arrived, he states that he is in pain in shoulders and hasn't slept well for the past couple days. OBJECTIVE: General Observation: Pleasant and appropriate, osteotomy, ANKITA stockings, Mental Status: A&Ox3 Pain: pain in (B) shoulders ad elbows. 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 Pt was able to grasp his fork and bring his food to mouth with stabilization (A). He requires (A) With grasp and release as well as directional movement. Bathing- sitting in bed with mod (A) with washing face and set up is max (A) at this time. BALANCE: Static sitting Good Dynamic Sitting Good SPECIAL TESTS: Daily Activity Limitations Standardized Measure [facility] AM -PAC ?6 clicks? Daily Activity Inpatient Short Form: Raw score: 7 Standardized score: 20.13 CMS score: 92.44% INFORMED CONSENT/EDUCATION: Pt instructed in purpose of OT Consult and plan of care. ASSESSMENT: Patient is a 56-year-old male referred to occupational therapy services with diagnosis of major depressive disorder, quaridplegia, UTI, decubitus skin ulcer, constipation, neurogenic bladder who recently under went a colostomy, aspiration of airway and is currently in SB1 level of care. Patient presents with clinical signs and symptoms consistent with dx, as demonstrated by the following impairment level findings/functional limitations: Pt requires max (A) for most ADL/IADL routines, he has contracted position of his digits and decreased functional activity tolerance due to fatigue. Decreased sensation in (B) UE and inability to perform his functional mobility (I) without (A). He was discharged from acute level of care and is currently being seen again under SB1 level of care at this time due to a decline in medical status. AMPAC score 7 Patient is assessed as a High 13592 complexity based on the following: History: see above Examination: see functional limitations as noted above Presentation: evolving Decision Making: AMPAC score 7, CMS 92.44% GOALS Goals x1 week 1. Grooming- pt will be mod (I) with brushing his teeth with mod vc throughout 2. Dressing- Pt will be mod (A) with don and doffing shirt 3. Bathing- pt will be able to (I) wash his face and (B) UE 4. Pt will hold his fork and be (I) food to mouth for 1-2 meals per day with progression based on functional activity tolerance 5. Pt will be able to perform UE dressing with min (A) PLAN OF CARE/TREATMENT PLAN: 1x/day, 5 days/ week x 1week Initiate Occupational Therapy Services for bathing, dressing, grooming, toileting, eating, transfer training. DISCHARGE RECOMMENDATIONS Return to SNF vs. Home with 24 hour care givers. TREATMENT TIME/MINUTES/CODES 49399, [id number], 35 minutes (08:10) Michelle Pearce OTR/[facility]
[2021-04-15] MEDS: Lidocaine 5% Patch 2 PATCH TP (09:44)
--- NOTE | 2021-04-15 13:44 | PTTR_ITS ---
Date of service: 04/15/21 Time of Service: 13:44 PT Notes Visit Reasons: Osteomyelitis Inpatient Physical Therapy Treatment Note [facility] Date: 04/15/2021 PRECAUTIONS: High risk for skin breakdown. C6-C7 quadriplegia. Wound vacuum in place. Ostomy in place. Multi-podus boots on at all times except for hygiene tasks, make sure that toe/leg posts are rolled out to prevent undue hip external rotation. SUBJECTIVE: Favio reports that his R UE swelling is almost gone but his L UE has swelling concentrated mostly on the L elbow which he does not understand. It was explained to him that since his L elbow is not as mobile as his R and since he has been bent at the L elbow most of the time, the fluid stagnates in said area and is not able to flow through said joint and through the arm. He is agreeable to placing pillow under L UE and making sure that L elbow is straightened most of the time to facilitate better fluid drainage through the L UE. he further states that he hopes to go home in 6 weeks, if everything goes well, to his ex- 's house and to be placed under her care. He does not hope to be a burden for her forever and he is hoping that he can increase his amount of services when he goes home. Per Nurse rupinder, patient has been placed on diuretics whic has been helping get rid of B UE/LE edema. OBJECTIVE: General Observation: Swelling in R UE almost resolved, L UE circumferential swelling at the elbow. B hand swelling resolved. B LE swelling resolved with L more than the R. Multi podus boots on but toe posts were not put out so B hips go into external rotation PAIN: B shoulder with L more than the R THEREX: Provided passive range of motion to B LE with increased spasm and a ssociated discomfort of ipsilateral UE and trunk. Utilized rhythmic rotation to B LE for neuroinhibition. Instructed patient on doing elbow flexion x 10 nathaniel hour to mobilize fluid off L elbow. MANUAL THERAPY: Retrograde massage to B UE with increased time spent on draining off L elbow fluid accumulation. ASSESSMENT: POD #17 s/p ex lap, bowel decompression, ostomy takedown, and new ostomy creation. Patient now limited by report of B shoulder pain, increasing spasm in B UE/LE/trunk, and persistent L elbow swelling. Will continue to provide services at same frequency with plan to perform caregiver education once patient is ready. PLAN: Continue with retrograde effleurage massage to B UE for decreased swelli ng. Continue with PROM to B LE, and encourage continued independent completion of UE strengthening HEP. TREATMENT CODE/TIME: 43633 x 55 minutes beginning at 13:44 PM.
[2021-04-15 15:17] VITALS: BP 103/63; PULSE 82; RESP 18; TEMP 36.5; O2SAT 97
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
[2021-04-15 20:55] VITALS: BP 138/83; PULSE 76; RESP 18; TEMP 37.1; O2SAT 99
[2021-04-15] MEDS: diphenhydrAMINE 25 MG CAP 50 MG PO (21:39)
[2021-04-15] MEDS: diazePAM 5 MG TAB 2.5 MG PO (21:40)
[2021-04-15 23:32] VITALS: BP 148/86; PULSE 81; RESP 20; TEMP 36.7; O2SAT 95
[2021-04-16] MEDS: LORazepam 2 MG/ML VIAL IV (00:02)
[2021-04-16] MEDS: CEFEPIME 2 GM in Normal Saline 100 ML IVPB ×4 (00:03→23:55)
[2021-04-16] MEDS: Normal Saline Flush 10 ML SYR IVP ×3 (00:03→23:55)
[2021-04-16] MEDS: metroNIDAZOLE 500 MG/100 ML BAG 100 MG IVPB ×3 (06:02→21:53)
[2021-04-16 07:54] VITALS: BP 123/74; PULSE 81; RESP 19; TEMP 36.7; O2SAT 99
--- NOTE | 2021-04-16 08:37 | OT.INTREAT ---
Date of service: 04/16/21 Time of Service: 08:00 Occupational Therapy Notes Occupational Therapy Inpatient Treatment Note Date: 04/16/21 PRECAUTIONS: Fall, standard, Full SUBJECTIVE: Pt was sitting in bed when OT arrived. He notes that he didn't sleep well last night, he is getting sores on his (L) hand and this is most likely due to moisture in his hand. OBJECTIVE: PAIN:no c/o pain Manual Therapy [id number]: OT performed joint blocking techniques and manual mobilization to pts (B) UE at MP, IP and DIP as well as PROM to pts (B) thumbs into flexion. OT passively mobilized pts (B) wrists into flexion and extension which he had some pain at end ranges. Pts (B) UE is swollen, his (L) is tender again to palpation with increased stiffness.Pt is unable to tolerate any ROM to his (L) elbow as this is sore. OT taped pts (R) digits into extension, OT will continue to perform mobilization with goal to use his hands at next session for ADLs. OT does perform positional relief movements but pt does not get any relief at this time. ASSESSMENT/PLAN: Pt is doing better, he is sore and unable to tolerate a lot of PROM of his digits but has increased edema. TREATMENT CODES/TIME: [id number], 30 minutes (08:00) [facility]
[2021-04-16] MEDS: Docusate Sodium 100 MG CAP PO ×3 (08:42→20:00)
[2021-04-16] MEDS: amLODIPine 5 MG TAB 10 MG PO (08:43)
[2021-04-16] MEDS: Ascorbic Acid 500 MG TAB PO ×2 (08:43→20:00)
[2021-04-16] MEDS: Baclofen 10 MG TAB PO ×3 (08:43→20:01)
[2021-04-16] MEDS: Acetaminophen 500 MG TAB 1000 MG PO (08:43)
[2021-04-16] MEDS: Pantoprazole 40 MG TABCR PO (08:43)
[2021-04-16] MEDS: DULoxetine 30 MG CAP 60 MG PO (08:43)
[2021-04-16] MEDS: Apixaban 5 MG TAB PO ×2 (08:44→19:59)
[2021-04-16] MEDS: Polyethylene Glycol 3350 17 GM PACKET PO (08:44)
[2021-04-16] MEDS: Spironolactone 25 MG TAB PO (08:44)
[2021-04-16] MEDS: Senna TAB 2 TAB PO ×2 (08:44→20:00)
[2021-04-16] MEDS: busPIRone 5 MG TAB 10 MG PO ×3 (08:44→20:01)
[2021-04-16] MEDS: Protein Nutritional Supplement 16 GM 1 OUNCE PACKET PO ×2 (08:44→20:01)
[2021-04-16] MEDS: Multivitamin w/Minerals TAB 1 TAB PO (08:46)
[2021-04-16] MEDS: Normal Saline Flush 10 ML SYR 20 ML IVP ×2 (08:47→20:01)
[2021-04-16] MEDS: Dronabinol 2.5 MG CAP PO ×2 (12:31→19:59)
[2021-04-16] MEDS: LORazepam 0.5 MG TAB PO ×2 (12:35→22:03)
[2021-04-16] MEDS: HYDROmorphone 2 MG/ML VIAL IVP (12:35)
[2021-04-16] MEDS: Lidocaine 5% Patch 2 PATCH TP (12:36)
[2021-04-16 15:53] VITALS: BP 105/67; PULSE 78; RESP 18; TEMP 36.9; O2SAT 98
[2021-04-16] MEDS: Collagenase 30 GM TUBE TP (16:57)
--- NOTE | 2021-04-16 17:29 | WOUNDCONS_ITS ---
- If Service Date Differs Date of service: 04/16/21 Time of Service: 17:30 Wound Initial Evaluation Narrative: Weekly re-evaluation done on Mr. Velasquez today. Bilateral Ischial wounds are not smaller in size compared to last week. Tunnels still present on both wounds. Bilateral Wound vacs according to documentation have been in place and running. Pt reports appetite has been decreased and he has not been eating his meals adequately. started on Marinol today. Pt was initiated on IV abx last week to address Osteomyelitis . Also of note, the [facility] bed pt is occupying was found not to be on the appropriate setting yesterday morning by nursing, unclear how long the altern ating air setting was off for; Pt has a new DTI, progressed to stage 2 on his coccyx, scaral area. see photo below. Pt has had no new skin problems r/t pressure up to this point, so I am assuming improper bed settings are the causative factor of the new area of breakdown. Bed setting reviewed with staff present today. Order for bedside rounding on bed settings entered to prevent error again. Mepilex placed over area. Right Ischial wound continues to have persistent slough present as noted in p revious reports. I am recommending @ this time to discontinue wound vac on right side and initiate DAILY Collagenase Santly to help remove slough as no tissue growth is able to happen on wound base @ this time. Will revaluate in 1 weeks time. As Sharp debridement is the fastest and most effective way to address the slough problem I am recommending a surgical consult @ this time as well to evaluate Mr. Velasquez's right Ischial wound. Surgical services notified. Recommend continuing wound vac and ordered treatment to left Ischial wound. - Wound Right Ischial tuberosity Wound Type: Pressure Ulcer Pressure Ulcer Stage: IV Wound Length: 3.1 cm Wound Width: 3 cm Wound Depth: 2.9 cm Wound Drainage Amount: None Left ischial Tuberosity Wound Type: Pressure Ulcer Pressure Ulcer Stage: IV Wound Length: 3.5 cm Wound Width: 4 cm Wound Depth: 2.5 cm Coccyx/Sacrum Wound Type: Pressure Ulcer, Deep Tissue Injury (DTI) Pressure Ulcer Stage: II Wound General Appearance: Reddened Wound Length: 4.6 cm Wound Width: 4.3 cm Wound Depth: 0.2 cm Wound Drainage Amount: None - Recomendation Recomendation:: Recommendation: Right Ischial Tuberosity-- cleanse wound with anasept cleanser. Skin prep to serge wound skin. Apply collagenase santyl to slough on wound bed (nickel thick). Fluff NS moistened gauze into wound. Cover with gentac silicone island dressing. Change Daily Sacrum- Apply mepilex to stage 2 PI.Change every 3 days and PRN. -Recommend surgical consult for sharp debridement of Right ischial tuberosity wound. Continue: Left ishial tuberosity--cleanse wound with anasept cleanser and gauze, skin prep to periwound. Add promogran rosa (1 package ) to wound bed with wound vac dressing changes. Add WHITE FOAM to tunnel on wound. Ensure bone on bilateral wound base is covered with contact layer (Adaptic) prior to black foam placement during dressing changes. Wound vac changes on , , THU- If wound vac not working- Wet to dry BID Physcian/Nurse Practioner Notified: Yes (Jan)
--- NOTE | 2021-04-16 20:44 | W.SURGCON ---
Date of service: 04/16/21 Time of Service: 20:44 [facility] Medical History (Updated 04/10/21 @ 10:58 by Boo Olson) Acute embolism and thrombosis of deep vein of right lower extremity Anxiety disorder C. difficile colitis Dislocation of C6/C7 cervical vertebrae DVT (deep venous thrombosis) Fall down embankment Fusion of spine Hypotension Major depressive disorder Neurogenic bladder Quadriplegia Social History Smoking/Tobacco Use Status: Never Smoking risk assessment performed?: Yes Alcohol Intake: current Alcohol Intake frequency: a few times a week Drug use: Occasionally Substance use type: marijuana Do you feel safe at home: Yes Do you feel safe in your relationship?: Yes Results Last Vital Signs Temp 36.9 C 04/16/21 15:53 Pulse 78 04/16/21 15:53 Resp 18 04/16/21 15:53 BP 105/67 04/16/21 15:53 Pulse Ox 98 04/16/21 15:53 Labs Result diagrams: 04/15/21 05:45 04/15/21 05:45
--- NOTE | 2021-04-16 20:45 | W.PM.PROGNOT ---
Documented by User: KAN Da Silva 04/17/21 14:56 Date of Service Date of service: 04/16/21 Time of Service: 20:45 Assessment and Plan Assessment and plan (1) Visit for wound check: Status: Acute Assessment and plan: [place] will need to remain in place for a few days. He may need a wound vac vs. SCOOTER dressing over this area to promote healing and closure of these areas. Discussed this with Mr. Velasquez. Surgical Consult noted, will discuss with Mr. Velasquez about the benefits and risks of proceeding with Sharp debridement. If he consents to move forward, will need to hold his Eliquis for 3 days prior. At this time will proceed with Algecate Ag rope for packing and mepilex dressing x 3 days. Will reassess on Thursday. Subjective Subjective Interval history since last seen: Favio reports he is doing well and that he was able to get some sleep last night. Exam Const General: cooperative and comfortable Orientation: alert and oriented x3 Resp Effort & Inspection: normal respiratory effort, no audible wheezes and no cough GI Palpation: soft, no guarding and nontender Other: Midline incision was evaluated to see if sharla could be removed. Some sharla have pulled through and and there some open area's along the midline incision. Some serous drainage noted. Mild erythema localized to the incision site. Objective Last Vital Signs Temp 36.9 C 04/16/21 15:53 Pulse 78 04/16/21 15:53 Resp 18 04/16/21 15:53 BP 105/67 04/16/21 15:53 Pulse Ox 98 04/16/21 15:53 Documented by User: Bhumi Gaspar DO 04/17/21 23:10 Assessment and Plan Assessment and plan (1) Decubitus ulcer of buttock, stage 4: Status: Acute Assessment and plan: -Eliquis is currently being held. An 8 coagulate with 100 mg Lovenox every 12. The debridement will be done by Dr. Calderon. Once we have the time in place then we will coordinate holding the Lovenox for debridement on Thursday. I will discuss this with Dr. Calderon tomorrow. Qualifiers: Laterality: left Qualified Code(s): L89.324 - Pressure ulcer of left buttock, stage 4
[2021-04-16] MEDS: diazePAM 5 MG TAB 2.5 MG PO (21:52)
[2021-04-16] MEDS: diphenhydrAMINE 25 MG CAP 50 MG PO (21:52)
[2021-04-16 23:54] VITALS: BP 125/75; PULSE 75; RESP 17; TEMP 36.7; O2SAT 97
[2021-04-17] MEDS: Normal Saline Flush 10 ML SYR IVP ×4 (05:46→23:48)
[2021-04-17] MEDS: metroNIDAZOLE 500 MG/100 ML BAG 100 MG IVPB ×3 (05:46→21:17)
[2021-04-17 07:36] VITALS: BP 149/80; PULSE 75; RESP 19; TEMP 36.9; O2SAT 98
--- NOTE | 2021-04-17 08:35 | OT.INTREAT ---
Date of service: 04/17/21 Time of Service: 08:15 Occupational Therapy Notes Occupational Therapy Inpatient Treatment Note Date: 04/17/21 PRECAUTIONS: Fall, standard, Full SUBJECTIVE: Pt was sitting in bed when OT arrived. He states that he has minimal appetite and reports that he was told he had another wound on his back so he is discouraged. OBJECTIVE: PAIN:no c/o pain Manual Therapy [id number]: OT performed joint blocking techniques and manual mobilization to pts (B) UE at MP, IP and DIP as well as PROM to pts (B) thumbs into flexion. Pt was sore with thumb flexion on his (L). OT passively mobilized pts (B) wrists into flexion and extension which he had some pain at end ranges. Pts (B) UE is swollen but significantly better than previously, his (L) is tender again to palpation with increased stiffness.Pt was able to tolerate ROM well. ASSESSMENT/PLAN: Pt is doing better, he is sore and stiff. Next session, OT will work with pt on dressing his UE which he is in agreement too. TREATMENT CODES/TIME: [id number], 30 minutes (08:15) Michelle Pearce OTR/L [facility]
[2021-04-17] MEDS: Normal Saline Flush 10 ML SYR 20 ML IVP ×2 (08:40→19:34)
[2021-04-17] MEDS: CEFEPIME 2 GM in Normal Saline 100 ML IVPB ×3 (08:40→23:48)
[2021-04-17] MEDS: Dronabinol 2.5 MG CAP PO ×2 (08:41→19:32)
[2021-04-17] MEDS: Spironolactone 25 MG TAB PO (08:41)
[2021-04-17] MEDS: Ascorbic Acid 500 MG TAB PO ×2 (08:41→19:33)
[2021-04-17] MEDS: Docusate Sodium 100 MG CAP PO ×3 (08:41→19:32)
[2021-04-17] MEDS: Multivitamin w/Minerals TAB 1 TAB PO (08:41)
[2021-04-17] MEDS: Polyethylene Glycol 3350 17 GM PACKET PO (08:41)
[2021-04-17] MEDS: Baclofen 10 MG TAB PO ×3 (08:41→19:33)
[2021-04-17] MEDS: amLODIPine 5 MG TAB 10 MG PO (08:41)
[2021-04-17] MEDS: busPIRone 5 MG TAB 10 MG PO ×3 (08:41→19:32)
[2021-04-17] MEDS: DULoxetine 30 MG CAP 60 MG PO (08:41)
[2021-04-17] MEDS: Pantoprazole 40 MG TABCR PO (08:41)
[2021-04-17] MEDS: Senna TAB 2 TAB PO ×2 (08:41→19:32)
[2021-04-17] MEDS: Collagenase 30 GM TUBE TP (08:42)
[2021-04-17] MEDS: Protein Nutritional Supplement 16 GM 1 OUNCE PACKET PO ×2 (08:42→19:33)
[2021-04-17] MEDS: Lidocaine 5% Patch 2 PATCH TP (09:49)
[2021-04-17 15:00] VITALS: BP 118/69; PULSE 76; RESP 18; TEMP 36.8; O2SAT 97
[2021-04-17] MEDS: Enoxaparin 100 MG/ML SYR SC (19:37)
[2021-04-17] MEDS: diazePAM 5 MG TAB 2.5 MG PO (21:16)
[2021-04-17] MEDS: LORazepam 0.5 MG TAB PO (21:16)
[2021-04-17] MEDS: diphenhydrAMINE 25 MG CAP 50 MG PO (21:17)
[2021-04-17 23:47] VITALS: BP 130/80; PULSE 79; RESP 19; TEMP 36.6; O2SAT 96
[2021-04-18] MEDS: LORazepam 0.5 MG TAB PO ×2 (03:36→21:15)
[2021-04-18 03:52] VITALS: BP 98/62; PULSE 70; RESP 17; TEMP 36.4; O2SAT 99
[2021-04-18] MEDS: Normal Saline Flush 10 ML SYR IVP ×5 (05:10→15:08)
[2021-04-18] MEDS: metroNIDAZOLE 500 MG/100 ML BAG 100 MG IVPB ×3 (05:10→21:16)
[2021-04-18 07:34] VITALS: BP 145/83; PULSE 63; RESP 18; TEMP 36.7; O2SAT 99
--- NOTE | 2021-04-18 07:44 | CMPROGNOTE_ITS ---
- If Service Date Differs Date of service: 04/18/21 Time of Service: 07:44 Care Management Progress Note S/O: Favio continues to slowly improve. His ostomy is working well and he is again eating a regular diet. Favio's TPN has been discontinued. His spirits vacillate from day to day. He makes every effort to stay positive but becomes discouraged when in pain or when there is a new setback. This week he was told that he has a new pressure sore on his coccyx. It is a stage II at this point but Favio has verbalized that he is worried that it may get worse and become deep like the others he has. Favio has been receiving regular visits from Nicki, the mother of his children and good friend, his Mother and father and various friends. He spends time on his tablet and talking on the phone with friends and relatives. A: Favio is a 56 year old man admitted on 02/22/21 with constipation P:Favio and his family continue to seek placement however he has no payer source for residential care. A LTM application has been submitted and the family is waiting for approval. Favio may go to a facility or an [facility] home before ultimately returning home. will continue to support Favio and his discharge planning needs.
[2021-04-18] MEDS: CEFEPIME 2 GM in Normal Saline 100 ML IVPB ×2 (08:17→16:12)
[2021-04-18] MEDS: Normal Saline Flush 10 ML SYR 20 ML IVP ×2 (08:21→21:16)
[2021-04-18 08:38] LABS: Platelet Count 213 10^3/uL (130-400)
[2021-04-18] MEDS: Protein Nutritional Supplement 16 GM 1 OUNCE PACKET PO ×2 (09:03→21:16)
[2021-04-18] MEDS: Ascorbic Acid 500 MG TAB PO ×2 (09:04→21:14)
[2021-04-18] MEDS: Dronabinol 2.5 MG CAP PO ×2 (09:04→21:15)
[2021-04-18] MEDS: Pantoprazole 40 MG TABCR PO (09:04)
[2021-04-18] MEDS: DULoxetine 30 MG CAP 60 MG PO (09:04)
[2021-04-18] MEDS: Polyethylene Glycol 3350 17 GM PACKET PO (09:04)
[2021-04-18] MEDS: Multivitamin w/Minerals TAB 1 TAB PO (09:04)
[2021-04-18] MEDS: Docusate Sodium 100 MG CAP PO ×3 (09:04→21:14)
[2021-04-18] MEDS: Baclofen 10 MG TAB PO ×3 (09:04→21:14)
[2021-04-18] MEDS: busPIRone 5 MG TAB 10 MG PO ×3 (09:04→21:15)
[2021-04-18] MEDS: Senna TAB 2 TAB PO ×2 (09:05→21:14)
[2021-04-18] MEDS: Enoxaparin 100 MG/ML SYR SC (09:05)
[2021-04-18] MEDS: amLODIPine 5 MG TAB 10 MG PO (09:05)
[2021-04-18] MEDS: Spironolactone 25 MG TAB PO (09:05)
[2021-04-18] MEDS: Lidocaine 5% Patch 2 PATCH TP (09:32)
[2021-04-18] MEDS: HYDROmorphone 2 MG/ML VIAL IVP ×2 (09:32→15:07)
[2021-04-18] MEDS: Collagenase 30 GM TUBE TP (09:36)
--- NOTE | 2021-04-18 12:50 | OT.INTREAT ---
Date of service: 04/18/21 Time of Service: 08:30 Occupational Therapy Notes Occupational Therapy Inpatient Treatment Note Date: 04/18/21 PRECAUTIONS: Fall, standard, Full SUBJECTIVE: Pt was sitting in bed when OT arrived. He states that he is tired and agreeable to OT session. His (L) hand has a towel in it for moisture which he feels has significantly improved. OBJECTIVE: PAIN:no c/o pain Manual Therapy [id number]: OT performed joint blocking techniques and manual mobilization to pts (B) UE at MP, IP and DIP as well as PROM to pts (B) thumbs into flexion. Pt was sore with thumb flexion on his (L) and he has increased sensitivity when stretched into flexion and extension. Pts (B) UE is swollen but significantly better than previously, his (L) is tender again to palpation with increased stiffness.Pt was able to tolerate ROM well. OT educates and trains pt in hand mobility, stretching and care for his (B) UE. Pt is receptive to education and training. ASSESSMENT/PLAN: Pt is doing better, he is sore and stiff. Next session, OT will work with pt on education and training in bathing/dressing. TREATMENT CODES/TIME: [id number], 25 minutes (08:30) [facility]
--- NOTE | 2021-04-18 14:03 | INPN_ITS ---
Date of service: 04/18/21 Time of Service: 14:03 PT Notes Visit Reasons: Osteomyelitis Swing Bed Level 1 Physical Therapy Progress Note Date: 04/18/2021 Dates of service: 04/11/2021 through 04/18/2021 Referring Doctor: Boo Olson MD PT Orders: PT CONSULT: Eval/treat PRECAUTIONS: High risk for skin breakdown. C6-C7 quadriplegia. Wound vacuum in place. Ostomy in place. Multi-podus boots on at all times except for hygiene tasks, make sure that toe/leg posts are rolled out to prevent undue hip external rotation. Patient Profile/Admitting Diagnosis: Patient with acute onset osteomyelitis of sacrum, stage IV decubitus ulcer of buttock, malnutrition following GI surgery, status post colostomy, and constipation due to neurogenic bladder, incomplete C6-C7 quadriplegia, gluteal decubiti stage IV status post wound debridement x 3. PMHX: Acute embolism and thrombosis of deep vein of right lower extremity Anxiety disorder C. difficile colitis Dislocation of C6/C7 cervical vertebrae Fall down embankment Fusion of spine Hypotension Major depressive disorder Neurogenic bladder Quadriplegia Subjective: Happy about how his B UE swelling is reolved. Feels that spasms continue to increase despite increase in dosage of muscle relaxant. Expresses that the right decubitus needs to be debrided tomorrow. Continues to report pain in B shoulders that is aggravated with movement. Still hopeful that he can go home the middle of May. Requested to have Dilaudid for pain. Nurse Laura updated. Objective: General Observation: General Observation: Swelling in R UE resolved, L UE circumferential swelling at the elbownalmost gone. B hand swelling resolved. B LE swelling decreasing with L more than the R. Multi podus boots on but toe posts were not put out so B hips are in external rotation Mental Status: A&Ox4. Pain: 4-5/10 pain in the left shoulder with external rotation and shoulder elevation ROM: Right Upper Extremity: Active shoulder flexion to about 80 degrees, passive flexion up to 100 degrees. External rotation up 60 degrees in gravity-eliminated plane. Elbow motion full. Forearm pronation and supination WFL. Wrist flexion up to 45 degrees actively and extension to 20 degrees actively. Some tension towar ds flexion at DIP joints through tenodesis grasp. 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 Left Upper Extremity: Passive shoulder flexion to 45 degrees with pain at end of range, actively to about 30 degrees with discomfort at end of range. Shoulder external rotation allows only up to 20 degrees before onset of pain. Elbow motion full. Pronation and supination about 10 degrees from neutral both ways actively. Wrist flexion and extension about [address] actively able to open hand passively. Some tension towards flexion at DIP joints through tenodesis grasp. Patient is able to utilize tenodesis grasp to a limited degree on the left; unable to functionally grasp small items on the left. Right Lower Extremity: no volitional motion Left Lower Extremity: no volitional motion Strength: Right Upper Extremity: Shoulder flexion 3-/5. Shoulder extension 3+/5. Biceps 3-/5. Triceps 3-/5. Finger flexion 1/5. Finger extension 0/5. Left Upper Extremity: Shoulder flexion 3-/5. Shoulder extension 3+/5. Biceps 3- /5. Triceps 3-/5. Finger flexion 1/5. Finger extension 0/5. Right Lower Extremity: 0/5 all motions Left Lower Extremity: 0/5 all motions Sensation: Insensate below the level of T6 dermatome Bed Mobility/Transfers: Totally dependent with all bed mobility and transfers Gait: N/A THERA EX: Patient has an existing AROM program for his R UE, head, and neck written on his white board inside room. Provided passive range of motion to B LE with increased spasm and associated discomfort of ipsilateral UE and trunk. Neuroinhibitory techniques (utilized rhythmic rotation) to B LE for neuroinhibition. Instructed patient on doing elbow flexion x 10 nathaniel hour to mobilize fluid off L elbow.incorporated into exercises to minimize spasms. Balance: Static Sitting: Poor Special Tests: Mobility Limitations Standardized Measure [facility] AM-PAC 6 clicks Basic Mobility Inpatient Short Form: Raw Score: 6 CMS Score: 100% deficit Informed Consent/Education: Patient was instructed in purpose of plan of care. Agreeable to continued physical therapy services to increase t o address positioning and caregiver training needs. Assessment: Patient converted to Swing Bed Level 1 as of 04/10/2010. B UE swelling now almost resolved which helps with AROM performance iwth less pain complaint. Increasing B LE spasms and discomfort during passive range of motion exercises limit patient's activity tolerance. PT plan of care will focus on caregiver education and training for contracture prevention, orthosis management, and mitigation of swelling in B UE. Colostomy bag in place due to neurogenic bladder and gluteal decubiti. Incomplete C6-C7 quadriplegia. Paretic in B UE, complete paralysis in B LE. Intact as to pain and light touch up to T6 dermatomal level. Functional grasp limited to tenodesis effect at this time. PT plan of care to focus on preventing contracture formation and caregiver education/training. Patient continues to present with clinical signs and symptoms consistent with diagnosis, as demonstrated by the following impairment level findings: 1. Limited UE active movement 2. Hypertonicity in B UEs 3. Paralysis of LEs and trunk 4. Decreased skin integrity 5. Recurrent spasms in B LE 6. Chronic left shoulder pain Impairments are continuing to contribute to the following functional limitations: 1. decreased ability to independently perform self-care 2. decreased ability to participate in transfers/rolling 3. dependent bed mobility skills 4. inability to perform pressure relief to bony landmarks in B LE Patient is assessed as High 95410 complexity based on the following: History: 55 year old male with recent quadriplegia, admitted for wound management. Patient is receiving ongoing care for wounds, as well as managing his constipation, and is considering colostomy. Complicating social factors include lack of pressure relieving wheelchair, which is being held up by insurance obstacles. Examination: functional limitations as noted above Presentation: Evolving Decision Making: High [id number] complexity Goals: Goals X 1 week 1. Caregiver will demonstrate 100% safe and correct technique with donning and doffing of B RCAI multi-podus boots to B LE to prevent PF contracture after 1 session. CONTINUE 2. Caregiver will demonstrate 100% mastery of PROM B LE after 3 sessions of caregiver training to preven contracture formation. CONTINUE 3. Patient will demonstrate reduction in B UE edema by 0.5 cm in order to maintain skin integrity and maintain flexibility as well as maximize range of motion in B UE joints. MET 4. Patient will maintain range of motion in B UE/LE joints to minimize contracture formation in anticipation of motorized wheelchair positioning. CONTINUE Plan of Care/Treatment Plan: 1x/day, 3 days/week x 2 weeks. Plan of care has been reviewed with the PRODUCTION LINE ASSEMBLER providing the service under Physical Therapy direction. Continue with PT plan of care for patient/caregiver education/training, contracture prevention, muscle tone management. DISCHARGE RECOMMENDATIONS: Home with 24/7 care when medically cleared by hospitalist. Patient will benefit from the following equipment in order to thrive at home-- 1) hospital bed with alternating mattress, motorized wheelchair with appropriate seating, and mechanical lift. TREATMENT CODE/TIME: 97926 X 44 minutes beginning at 14:03 PM. Thank you for the opportunity to participate in the care of this patient. aKthy Solorio PT, DPT, CLT [facility] [place], [place]
[2021-04-18] MEDS: Acetaminophen 500 MG TAB 1000 MG PO (15:07)
[2021-04-18 15:52] VITALS: BP 98/62; PULSE 70; RESP 17; TEMP 36.4; O2SAT 99
--- NOTE | 2021-04-18 16:11 | CHAPLAIN ---
Favio was very pleasant, and telling me about being in contact with friends on Facebook when I stopped in. He has special supports on his feet and ankles that keep his foot from dropping and keeps them up straight. Favio was talking about advances in new adaptive equipment that's available. He spoke with his counselor today. She will be recovering from surgery for a bit, and Favio will speak with her again at the end of the month.
[2021-04-18 16:20] VITALS: BP 104/65; PULSE 71
[2021-04-18] MEDS: diphenhydrAMINE 25 MG CAP 50 MG PO (21:15)
[2021-04-18] MEDS: diazePAM 5 MG TAB 2.5 MG PO (21:15)
[2021-04-18 23:29] VITALS: BP 105/64; PULSE 71; RESP 18; TEMP 36.4; O2SAT 98
[2021-04-19] MEDS: CEFEPIME 2 GM in Normal Saline 100 ML IVPB ×4 (00:02→23:50)
[2021-04-19] MEDS: metroNIDAZOLE 500 MG/100 ML BAG 100 MG IVPB ×3 (05:37→22:01)
--- NOTE | 2021-04-19 07:32 | NUR.NOTE ---
patient requested to take Ativan, Diphenhydramine and Diazepam together for him to sleep, meds given at 9pm:
[2021-04-19 08:36] VITALS: BP 124/76; PULSE 74; RESP 18; TEMP 36.6; O2SAT 97
--- NOTE | 2021-04-19 09:13 | NT_ITS ---
Date of service: 04/19/21 Time of Service: 09:13 Occupational Therapy Notes 04/19/21 OT attempted to see pt, he is tired and is exhausted. OT will hold for today and resume on Thursday. Michelle Pearce OTR/[facility]
[2021-04-19] MEDS: Polyethylene Glycol 3350 17 GM PACKET PO (09:27)
[2021-04-19] MEDS: Protein Nutritional Supplement 16 GM 1 OUNCE PACKET PO ×2 (09:27→21:13)
[2021-04-19] MEDS: Normal Saline Flush 10 ML SYR 20 ML IVP ×2 (09:27→21:14)
[2021-04-19] MEDS: DULoxetine 30 MG CAP 60 MG PO (09:27)
[2021-04-19] MEDS: Baclofen 10 MG TAB PO ×3 (09:27→21:12)
[2021-04-19] MEDS: amLODIPine 5 MG TAB 10 MG PO (09:27)
[2021-04-19] MEDS: Multivitamin w/Minerals TAB 1 TAB PO (09:28)
[2021-04-19] MEDS: Docusate Sodium 100 MG CAP PO ×3 (09:28→21:12)
[2021-04-19] MEDS: Senna TAB 2 TAB PO ×2 (09:28→21:13)
[2021-04-19] MEDS: Spironolactone 25 MG TAB PO (09:28)
[2021-04-19] MEDS: Pantoprazole 40 MG TABCR PO (09:28)
[2021-04-19] MEDS: Dronabinol 2.5 MG CAP PO ×2 (09:28→21:13)
[2021-04-19] MEDS: busPIRone 5 MG TAB 10 MG PO ×3 (09:28→21:13)
[2021-04-19] MEDS: Ascorbic Acid 500 MG TAB PO ×2 (09:28→21:13)
[2021-04-19] MEDS: Lidocaine 5% Patch 2 PATCH TP (10:47)
--- NOTE | 2021-04-19 11:29 | W.PALPGNOTE ---
Date of service: 04/18/21 Time of Service: 15:29 Assessment and Plan Assessment and plan (1) Acute osteomyelitis of sacrum: Status: Acute Assessment and plan: Continue on antibiotics (2) Major depressive disorder: Status: Chronic Assessment and plan: He does feel that his present antidepressants are helpful. He continues to meet regularly via telehealth with a counselor. He is coming to the realization that he may never walk again (3) Quadriplegia: Status: Chronic Assessment and plan: He has gotten back some of the use of his right shoulder. His spasms continuing at times are severe. (4) Constipation: Status: Chronic Qualifiers: Constipation type: other constipation type Qualified Code(s): K59.09 - Other constipation Subjective Subjective Patient reports: feels better and still having pain; denies nausea Interval history since last seen: Favio states that he has had some bouts of depression. They have changed around his medication and is hoping to feel better. Overall he spends his days watching [employer] and listening to music. He does have many visitors. He feels that his shoulder and arms are having less spasms than they had been. Exam Narrative Exam Narrative: Today he is a good mood. He is smiling and very cooperative. He speaks freely about different problems that he is having but overall has a positive outlook Resp Effort & Inspection: normal respiratory effort and able to speak in complete sentences Auscultation: clear to auscultation bilaterally Cardio Rate: regular rate Rhythm: regular rhythm GI Palpation: soft and no hepatosplenomegaly Auscultation: normal bowel sounds Skin General skin exam: other (I did not examine his wounds but per staff they are healing) Objective Last Vital Signs Temp 97.9 F 04/19/21 08:36 Pulse 74 04/19/21 08:36 Resp 18 04/19/21 08:36 BP 124/76 04/19/21 08:36 Pulse Ox 97 04/19/21 08:36
[2021-04-19 16:30] VITALS: BP 116/72; PULSE 81; RESP 18; TEMP 36.6; O2SAT 95
--- NOTE | 2021-04-19 20:43 | PGE_ITS ---
Documented by User: KAN Da Silva 04/19/21 20:57 Date of Service Date of service: 04/19/21 Time of Service: 20:43 Assessment and Plan Assessment and plan (1) Encounter for wound care: Status: Acute Assessment and plan: A// Stoma looks great. [place] and patent. Midline incision is healing slowly. Continue with Aquacel Ag and mepilex dressin g. Will keep lex in to prevent wound dehiscence. May consider use of a SCOOTER dressing to facilitate healing. This may be difficult with the proximity of the colostomy. P// Continue with dressing changes x 3 days. Subjective Subjective Interval history since last seen: Favio reports he is doing well. He states that he is worried about his midline incision isn't healing. Exam Const General: cooperative, healthy appearing and comfortable Orientation: alert and oriented x3 Resp Effort & Inspection: normal respiratory effort, no audible wheezes and no cough GI Palpation: soft, no guarding and nontender Other: Midline incision- Lex remain in place to prevent wound dehiscence. Superior portion- 0.5 cm x 0.4 cm x 0.4 cm Middle open portion 1.8 cm x 1.1 cm x 1.5 cm with tunneling at 6 o'clock 2.4 cm; 10 o'clock position 1.8 cm Objective Last Vital Signs Temp 36.6 C 04/19/21 16:30 Pulse 81 04/19/21 16:30 Resp 18 04/19/21 16:30 BP 116/72 04/19/21 16:30 Pulse Ox 95 04/19/21 16:30 Documented by User: Wale Calderon MD 04/19/21 22:20
[2021-04-19] MEDS: LORazepam 0.5 MG TAB PO (21:15)
[2021-04-19] MEDS: diazePAM 5 MG TAB 2.5 MG PO (21:15)
[2021-04-19] MEDS: diphenhydrAMINE 25 MG CAP 50 MG PO (21:15)
[2021-04-19 23:55] VITALS: BP 151/89; PULSE 84; RESP 18; TEMP 37.2; O2SAT 97
[2021-04-20] MEDS: metroNIDAZOLE 500 MG/100 ML BAG 100 MG IVPB ×3 (05:17→21:25)
[2021-04-20 08:03] VITALS: BP 153/91; PULSE 78; RESP 18; TEMP 37.3; O2SAT 96
[2021-04-20] MEDS: CEFEPIME 2 GM in Normal Saline 100 ML IVPB ×2 (09:06→16:17)
[2021-04-20] MEDS: Normal Saline Flush 10 ML SYR 20 ML IVP ×2 (09:06→21:13)
[2021-04-20] MEDS: Polyethylene Glycol 3350 17 GM PACKET PO (09:06)
[2021-04-20] MEDS: Baclofen 10 MG TAB PO ×3 (09:06→21:12)
[2021-04-20] MEDS: Protein Nutritional Supplement 16 GM 1 OUNCE PACKET PO ×2 (09:06→21:12)
[2021-04-20] MEDS: Pantoprazole 40 MG TABCR PO (09:06)
[2021-04-20] MEDS: Multivitamin w/Minerals TAB 1 TAB PO (09:07)
[2021-04-20] MEDS: Docusate Sodium 100 MG CAP PO ×3 (09:07→21:12)
[2021-04-20] MEDS: Senna TAB 2 TAB PO ×2 (09:07→21:12)
[2021-04-20] MEDS: Ascorbic Acid 500 MG TAB PO ×2 (09:07→21:12)
[2021-04-20] MEDS: busPIRone 5 MG TAB 10 MG PO ×3 (09:07→21:11)
[2021-04-20] MEDS: Dronabinol 2.5 MG CAP PO ×2 (09:07→21:11)
[2021-04-20] MEDS: Spironolactone 25 MG TAB PO (09:07)
[2021-04-20] MEDS: amLODIPine 5 MG TAB 10 MG PO (09:07)
[2021-04-20] MEDS: DULoxetine 30 MG CAP 60 MG PO (09:07)
[2021-04-20] MEDS: Lidocaine 5% Patch 2 PATCH TP (09:54)
[2021-04-20] MEDS: HYDROmorphone 2 MG/ML VIAL IVP ×2 (13:45→16:16)
--- NOTE | 2021-04-20 14:32 | PGE_ITS ---
Date of Service Date of service: 04/20/21 Time of Service: 14:32 Assessment and Plan Assessment and plan (1) Acute osteomyelitis of sacrum: Start date: 04/20/21 Start time: 14:34 Status: Acute Assessment and plan: 4 more weeks of antibiotics w/ Cefepime and Metronidazole. Weekly labs: CBC, CMP, CRP he will likely have acute on chronic osteo of sacrum requiring doses of vanco per previous conversation with ID. Debridement today with Dr. Calderon. On cefepime until tomorrow. Eliquis on hold un til surgery recommends restarting. (2) Major depressive disorder: Start date: 04/20/21 Start time: 14:36 Status: Chronic Assessment and plan: continue Buspar and Duloxetine increased to 60, he appeared to be in good spirits today will visit with him tomorrow and check on how he slept (3) Quadriplegia: Start date: 04/20/21 Start time: 14:37 Status: Chronic Assessment and plan: cont. P.T. to work with patient to try to improve his upper body strength to facilitate his care upon discharge from the hospital. He plans to live with the mother of his children (4) Constipation: Start date: 04/20/21 Start time: 14:37 Status: Chronic Assessment and plan: This appears to have resolved at this time with bowel regimen. Ostomy producing soft stool. Continue regimen discussed with Dr. Murillo Qualifiers: Constipation type: other constipation type Qualified Code(s): K59.09 - Other constipation Subjective Subjective Patient reports: other Interval history since last seen: Debridement with Dr. Calderon today. He is laying in bed laughing and joking today. He did ask his evening meds get changed to earlier time as it is taking longer to fall asleep. Will trial 2030 tonight if too early will move to 2100 tomorrow night. Otherwise today appears to be in good spirits. Denies CP, SOB, N/V/D. Exam Narrative Exam Narrative: Micha is alert and conversant w/ me and the staff. No acute pain. Lungs are clear heart is regular Abdomen soft and nondistended w/ ostomy draining light brown semiformed stool Decubitus wounds have wound vacuum in place. he is having debridement today with Dr. calderon at bedside., Extremities some dependent edema of buttocks, elbows and legs Objective Last Vital Signs Temp 37.3 C 04/20/21 08:03 Pulse 78 04/20/21 08:03 Resp 18 04/20/21 08:03 BP 153/91 H 04/20/21 08:03 Pulse Ox 96 04/20/21 08:03
[2021-04-20] MEDS: Collagenase 30 GM TUBE TP (14:45)
[2021-04-20 15:50] VITALS: BP 106/71; PULSE 84; RESP 18; TEMP 37.3; O2SAT 96
[2021-04-20] MEDS: Normal Saline Flush 10 ML SYR IVP (16:16)
--- NOTE | 2021-04-20 16:52 | W.PM.PROGNOT ---
Date of Service Date of service: 04/20/21 Time of Service: 14:50 Assessment and Plan Assessment and plan (1) Acute osteomyelitis of sacrum: Start date: 04/20/21 Status: Acute Assessment and plan: Bedside debridement of right ischial wound performed today after obtaining verbal informed consent. Wound dressed with collagenase, and wet-to-dry dressing placed into wound bed. Restart Eliquis on 04/22 Antibiotics per Hospitalist service (2) Major depressive disorder: Status: Chronic Assessment and plan: anti-depressants per Hospitalist service (3) Constipation: Status: Chronic Assessment and plan: Stoma is working well, producing soft stool. Continue regimen Qualifiers: Constipation type: other constipation type Qualified Code(s): K59.09 - Other constipation (4) Quadriplegia: Status: Chronic Assessment and plan: cont. P.T. to work with patient to try to improve his upper body strength to facilitate his care upon discharge from the hospital. He plans to live with the mother of his children Subjective Subjective Patient reports: no new complaints and tolerating a regular diet Interval history since last seen: Favio is without new complaints. Exam Const General: cooperative, comfortable and no acute distress GI Palpation: soft Rectal Exam: other Other: abd soft, stoma pink, functioning, and viable; Mepilex over midline wound--pictures on chart reviewed; Back/Spine/Pelvis Other: Wound Care nurse requested re-evaluation for debridement on right ischial tuberosity. See under procedure Skin Wounds: wounds noted Neuro General: patient alert, patient awake and patient oriented x3 Other: quadriplegic Psych Appearance: grossly normal Mental Status: mental status grossly normal Mood: congruent mood Affect: normal affect Attitude: cooperative Objective Last Vital Signs Temp 99.1 F 04/20/21 15:50 Pulse 84 04/20/21 15:50 Resp 18 04/20/21 15:50 BP 106/71 04/20/21 15:50 Pulse Ox 96 04/20/21 15:50 Procedures Other Procedure Description/Findings: Procedure: Bedside debridement of Right ischial tuberosity pressure ulcer Surgeon: Dr. 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 He developed ischial tuberosity pressure ulcers while in a nursing and rehab facility. He has had serial debridements of these wounds, and VAC systems applied. The bilateral wounds have improving and are decreased in size, in her recent evaluation, one of the wound care nurses believes that further debridement of the right sided wound is necessary. I reviewed the images taken myself, and was in agreement. I obtained witnessed verbal consent for bedside debridement from the patient, after reviewing the risks of bleeding, infection, and need for further debridement. Procedure: The patient was positioned in the left lateral decubitus position. The wound was prepped with a betadine swab. Sharp debridement was performed debulking the slough at the bottom of the wound, and into the short tunnel that extends cephalolaterally. Blunt debridement with a 4x4 gauze was also performed to try to loosen any debris. The base of the wound was also lightly incised to allow better penetration with local wound care. The wound measures ~3cm wide x 2.5cm long. There was minimal bleeding throughout, and hemostasis was controlled with pressure. The wound was dressed with collagenase to the base, and packed with wet-to-dry gauze, and covered with dry gauze. The patient is insensate in this area, and tolerated the procedure well.
[2021-04-20] MEDS: VANCOMYCIN 2,000 MG in Normal Saline 500 ML 250 MG IVPB (18:48)
[2021-04-20] MEDS: diazePAM 5 MG TAB 2.5 MG PO (21:10)
[2021-04-20] MEDS: diphenhydrAMINE 25 MG CAP 50 MG PO (21:12)
[2021-04-20] MEDS: LORazepam 0.5 MG TAB PO (21:13)
[2021-04-20 21:20] VITALS: BP 115/70; PULSE 73; RESP 18; TEMP 37.1; O2SAT 97
[2021-04-21 00:04] VITALS: BP 110/70; PULSE 80; RESP 18; TEMP 37.1; O2SAT 96
[2021-04-21] MEDS: CEFEPIME 2 GM in Normal Saline 100 ML IVPB ×3 (00:10→16:38)
[2021-04-21] MEDS: VANCOMYCIN 1,250 MG in Normal Saline 250 ML 166.667 MG IVPB (01:28)
[2021-04-21] MEDS: metroNIDAZOLE 500 MG/100 ML BAG 100 MG IVPB ×3 (06:30→22:01)
[2021-04-21 08:10] LABS: Platelet Count 238 10^3/uL (130-400)
[2021-04-21 08:24] VITALS: BP 112/72; PULSE 75; RESP 19; TEMP 36.1; O2SAT 95
[2021-04-21] MEDS: DULoxetine 30 MG CAP 60 MG PO (08:30)
[2021-04-21] MEDS: Polyethylene Glycol 3350 17 GM PACKET PO (08:30)
[2021-04-21] MEDS: Protein Nutritional Supplement 16 GM 1 OUNCE PACKET PO ×2 (08:30→22:01)
[2021-04-21] MEDS: amLODIPine 5 MG TAB 10 MG PO (08:31)
[2021-04-21] MEDS: Pantoprazole 40 MG TABCR PO (08:31)
[2021-04-21] MEDS: Senna TAB 2 TAB PO ×2 (08:31→22:04)
[2021-04-21] MEDS: busPIRone 5 MG TAB 10 MG PO ×3 (08:31→22:03)
[2021-04-21] MEDS: Ascorbic Acid 500 MG TAB PO ×2 (08:31→22:05)
[2021-04-21] MEDS: Spironolactone 25 MG TAB PO (08:31)
[2021-04-21] MEDS: Docusate Sodium 100 MG CAP PO ×3 (08:31→22:04)
[2021-04-21] MEDS: Multivitamin w/Minerals TAB 1 TAB PO (08:31)
[2021-04-21] MEDS: Baclofen 10 MG TAB PO ×3 (08:31→22:04)
[2021-04-21] MEDS: Dronabinol 2.5 MG CAP PO ×2 (08:31→22:03)
[2021-04-21] MEDS: Normal Saline Flush 10 ML SYR 20 ML IVP ×2 (08:32→22:02)
[2021-04-21] MEDS: Lidocaine 5% Patch 2 PATCH TP (12:10)
[2021-04-21] MEDS: VANCOMYCIN/WATER (PEG) 1.5 GM/300 ML BAG IV ×2 (12:10→22:32)
[2021-04-21 14:53] VITALS: BP 127/82; PULSE 95; RESP 17; TEMP 35.7; O2SAT 95
[2021-04-21] MEDS: Collagenase 30 GM TUBE TP (16:07)
[2021-04-21] MEDS: Normal Saline Flush 10 ML SYR IVP ×2 (16:38→22:02)
[2021-04-21] MEDS: diazePAM 5 MG TAB 2.5 MG PO (22:03)
[2021-04-21] MEDS: Melatonin 3 MG TAB 9 MG PO (22:03)
[2021-04-21] MEDS: LORazepam 0.5 MG TAB PO (22:04)
[2021-04-21] MEDS: Acetaminophen 500 MG TAB 1000 MG PO (22:04)
[2021-04-21] MEDS: diphenhydrAMINE 25 MG CAP 50 MG PO (22:04)
[2021-04-21] MEDS: Enoxaparin 100 MG/ML SYR SC (22:05)
[2021-04-21] MEDS: Normal Saline 500 ML 30 ML IV (22:05)
[2021-04-21 22:42] VITALS: BP 129/79; PULSE 76; RESP 20; TEMP 35.9; O2SAT 98
[2021-04-22] MEDS: CEFEPIME 2 GM in Normal Saline 100 ML IVPB ×3 (00:58→17:06)
[2021-04-22] MEDS: LORazepam 0.5 MG TAB PO ×3 (01:04→21:28)
[2021-04-22] MEDS: metroNIDAZOLE 500 MG/100 ML BAG 100 MG IVPB ×3 (06:07→21:30)
[2021-04-22] MEDS: Normal Saline Flush 10 ML SYR IVP ×3 (06:08→22:02)
[2021-04-22] MEDS: Water,Injection,Sterile 10 ML VIAL (07:10)
[2021-04-22] MEDS: Alteplase 2 MG VIAL IJ ×2 (07:10)
[2021-04-22 08:28] VITALS: BP 143/89; PULSE 64; RESP 19; TEMP 35.6; O2SAT 99
[2021-04-22] MEDS: Enoxaparin 100 MG/ML SYR SC ×2 (09:12→21:26)
[2021-04-22] MEDS: Lidocaine 5% Patch 2 PATCH TP (09:13)
[2021-04-22] MEDS: busPIRone 5 MG TAB 10 MG PO ×3 (09:13→21:28)
[2021-04-22] MEDS: amLODIPine 5 MG TAB 10 MG PO (09:14)
[2021-04-22] MEDS: Spironolactone 25 MG TAB PO (09:14)
[2021-04-22] MEDS: DULoxetine 30 MG CAP 60 MG PO (09:14)
[2021-04-22] MEDS: Multivitamin w/Minerals TAB 1 TAB PO (09:14)
[2021-04-22] MEDS: Dronabinol 2.5 MG CAP PO ×2 (09:14→21:27)
[2021-04-22] MEDS: Pantoprazole 40 MG TABCR PO (09:14)
[2021-04-22] MEDS: Ascorbic Acid 500 MG TAB PO ×2 (09:14→21:28)
[2021-04-22] MEDS: Docusate Sodium 100 MG CAP PO ×3 (09:14→21:28)
[2021-04-22] MEDS: Baclofen 10 MG TAB PO ×3 (09:14→21:28)
[2021-04-22] MEDS: Senna TAB 2 TAB PO ×2 (09:14→21:28)
[2021-04-22] MEDS: Acetaminophen 500 MG TAB 1000 MG PO (09:31)
[2021-04-22] MEDS: Collagenase 30 GM TUBE TP (09:32)
[2021-04-22] MEDS: Polyethylene Glycol 3350 17 GM PACKET PO (09:32)
[2021-04-22] MEDS: Normal Saline Flush 10 ML SYR 20 ML IVP ×2 (09:32→21:29)
[2021-04-22] MEDS: Protein Nutritional Supplement 16 GM 1 OUNCE PACKET PO ×2 (09:32→21:27)
[2021-04-22] MEDS: VANCOMYCIN/WATER (PEG) 1.5 GM/300 ML BAG IV (09:36)
[2021-04-22 10:04] LABS: Abs Immature Grans 0.05 10^3/uL (0.0-0.06); Absolute Basophil Count 0.06 10^3/uL (0.0-0.2); Absolute Eosinophil Count 0.51 10^3/uL (0.0-0.7); Absolute Lymphocyte Count 1.36 10^3/uL (1.2-3.4); Absolute Monocyte Count 0.41 10^3/uL (0.1-0.8); Absolute Neutrophil Count 4.26 10^3/uL (1.2-6.7); Basophils % 0.9; Eosinophils % 7.7; HGB 10.6 g/dL (13.5-17.5); Immature Grans % 0.8; Lymphocytes % 20.5; MCH 27.2 pg (27.0-33.0); MCHC 31.2 % (32.0-36.0); MCV 87.2 fL (80-95); Monocytes % 6.2; Neutrophils % 63.9; Nucleated RBC 0 %; Platelet Count 236 10^3/uL (130-400); RDW 17.3 % (11.8-14.1); RDW-SD 55.4 fL; WBC 6.65 10^3/uL (4.4-10.8)
[2021-04-22 10:12] LABS: ALT 17 U/L (16-63); AST 11 U/L (15-37); Albumin 2.7 g/dL (3.4-5.0); Alkaline Phosphatase 75 U/L (46-116); Anion Gap 10.7 mmol/L (3-11); BUN 18 mg/dL (7-18); Bilirubin, Total 0.2 mg/dL (0.2-1.0); C-Reactive Protein 1.97 mg/dL (0.0-0.3); CO2 23.3 mmol/L (21.0-32.0); CREATININE 0.7 mg/dL (0.70-1.30); Calcium 9.8 mg/dL (8.5-10.1); Chloride 106 mmol/L (98-107); Glucose 117 mg/dL (74-106); Potassium 3.8 mmol/L (3.5-5.1); Sodium 140 mmol/L (136-145); Total Protein 6.6 g/dL (6.4-8.2)
--- NOTE | 2021-04-22 13:29 | W.PM.PROGNOT ---
Date of Service Date of service: 04/22/21 Time of Service: 13:29 Subjective Subjective Interval history since last seen: This is a 56-year-old gentleman who has a neurogenic bladder. He is managed with an indwelling suprapubic tube. He is due for routine tube change. Objective Last Vital Signs Temp 35.6 C L 04/22/21 08:28 Pulse 64 04/22/21 08:28 Resp 19 04/22/21 08:28 BP 143/89 H 04/22/21 08:28 Pulse Ox 99 04/22/21 08:28 Laboratory Results - last 24 hr 04/22/21 04/22/21 04/22/21 09:30 09:30 09:30 WBC 6.65 RBC 3.90 L Hgb 10.6 L Hct 34.0 L MCV 87.2 MCH 27.2 MCHC 31.2 L RDW 17.3 H Plt Count 236 MPV 11.0 Immature Gran % 0.8 Neutrophils % 63.9 Lymphocytes % 20.5 Monocytes % 6.2 Eosinophils % 7.7 Basophils % 0.9 Nucleated RBC % 0 Absolute Neutrophils 4.26 Absolute Lymphocytes 1.36 Absolute Monocytes 0.41 Absolute Eosinophils 0.51 Absolute Basophils 0.06 Sodium 140 Potassium 3.8 Chloride 106 Carbon Dioxide 23.3 Anion Gap 10.7 BUN 18 Creatinine 0.7 Estimated GFR/1.73 m2 >= 60.00 Glucose 117 H Calcium 9.8 Total Bilirubin 0.2 AST 11 L ALT 17 Alkaline Phosphatase 75 C-Reactive Protein 1.97 H Total Protein 6.6 Albumin 2.7 L Vancomycin Trough 19.0 Change Bladder Catheter Text: The balloon on his and dwelling suprapubic tube was deflated and the catheter was removed. The SP tube site was then prepped. A new 16 [place] catheter was passed through the suprapubic tract into the bladder. The catheter balloon was inflated with 10 cc of sterile water. The catheter was hooked to gravity drainage. The catheter was irrigated to ensure patency. He tolerated this procedure well.
[2021-04-22 15:18] VITALS: BP 125/78; PULSE 62; RESP 16; TEMP 36.6; O2SAT 98
--- NOTE | 2021-04-22 16:55 | W.PM.PROGNOT ---
Date of Service Date of service: 04/22/21 Time of Service: 16:55 Assessment and Plan Assessment and plan (1) Open wound of abdominal wall: Start date: 04/22/21 Status: Acute Assessment and plan: Two subcentimeter openings to midline surgical wound are improving. Most sharla removed. --pack open areas with Aquacell --may cover with Mepilex, change prn (2) Acute osteomyelitis of sacrum: Start date: 04/20/21 Status: Acute Assessment and plan: Bedside debridement of right ischial wound performed today after obtaining verbal informed consent. Wound dressed with collagenase, and wet-to-dry dressing placed into wound bed. Restart Eliquis on 04/22 Antibiotics per Hospitalist service (3) Major depressive disorder: Status: Chronic Assessment and plan: anti-depressants per Hospitalist service (4) Constipation: Status: Chronic Assessment and plan: Stoma is working well, producing soft stool. Continue regimen Qualifiers: Constipation type: other constipation type Qualified Code(s): K59.09 - Other constipation (5) Quadriplegia: Status: Chronic Assessment and plan: cont. P.T. to work with patient to try to improve his upper body strength to facilitate his care upon discharge from the hospital. He plans to live with the mother of his children Subjective Subjective Patient reports: no new complaints, tolerating a regular diet and bowel movement; denies nausea and shortness of breath Exam Const General: cooperative, comfortable and no acute distress Nutritional Appearance: average body habitus Resp Effort & Inspection: normal respiratory effort and able to speak in complete sentences GI Inspection: non-distended Palpation: soft Other: Midline wound closely examined; two small openings present in staple line, each packed with Aquacell Aq strips; the inferior opening tunnels very slightly caudally; all but 3 or 4 sharla removed; overall, looks good Neuro Other: quadriplegic Psych Mental Status: mental status grossly normal Mood: congruent mood Attitude: cooperative Thought Process: normal Thought Content: normal Insight: insight good Judgment: judgment good Objective Last Vital Signs Temp 97.9 F 04/22/21 15:18 Pulse 62 04/22/21 15:18 Resp 16 04/22/21 15:18 BP 125/78 04/22/21 15:18 Pulse Ox 98 04/22/21 15:18 Laboratory Results - last 24 hr 04/22/21 04/22/21 04/22/21 09:30 09:30 09:30 WBC 6.65 RBC 3.90 L Hgb 10.6 L Hct 34.0 L MCV 87.2 MCH 27.2 MCHC 31.2 L RDW 17.3 H Plt Count 236 MPV 11.0 Immature Gran % 0.8 Neutrophils % 63.9 Lymphocytes % 20.5 Monocytes % 6.2 Eosinophils % 7.7 Basophils % 0.9 Nucleated RBC % 0 Absolute Neutrophils 4.26 Absolute Lymphocytes 1.36 Absolute Monocytes 0.41 Absolute Eosinophils 0.51 Absolute Basophils 0.06 Sodium 140 Potassium 3.8 Chloride 106 Carbon Dioxide 23.3 Anion Gap 10.7 BUN 18 Creatinine 0.7 Estimated GFR/1.73 m2 >= 60.00 Glucose 117 H Calcium 9.8 Total Bilirubin 0.2 AST 11 L ALT 17 Alkaline Phosphatase 75 C-Reactive Protein 1.97 H Total Protein 6.6 Albumin 2.7 L Vancomycin Trough 19.0
[2021-04-22] MEDS: diazePAM 5 MG TAB 2.5 MG PO (21:27)
[2021-04-22] MEDS: diphenhydrAMINE 25 MG CAP 50 MG PO (21:27)
[2021-04-22] MEDS: Melatonin 3 MG TAB 9 MG PO (21:28)
[2021-04-22] MEDS: VANCOMYCIN/WATER (PEG) 1.25 GM/250 ML BAG IV (21:29)
[2021-04-22] MEDS: Normal Saline 500 ML 30 ML IV (21:30)
[2021-04-22] MEDS: HYDROmorphone 2 MG/ML VIAL IVP (22:02)
[2021-04-22 23:51] VITALS: BP 140/84; PULSE 91; RESP 20; TEMP 36.8; O2SAT 94
[2021-04-23] MEDS: CEFEPIME 2 GM in Normal Saline 100 ML IVPB ×3 (01:07→15:59)
[2021-04-23] MEDS: HYDROmorphone 2 MG/ML VIAL IVP ×2 (01:08→11:50)
[2021-04-23] MEDS: Acetaminophen 500 MG TAB 1000 MG PO ×2 (01:08→21:53)
[2021-04-23] MEDS: LORazepam 0.5 MG TAB PO ×3 (01:08→21:53)
[2021-04-23] MEDS: Normal Saline Flush 10 ML SYR IVP ×6 (01:09→21:56)
[2021-04-23] MEDS: VANCOMYCIN/WATER (PEG) 1.25 GM/250 ML BAG IV ×2 (05:57→15:58)
[2021-04-23] MEDS: metroNIDAZOLE 500 MG/100 ML BAG 100 MG IVPB ×3 (05:57→21:52)
[2021-04-23 07:24] VITALS: BP 112/67; PULSE 61; RESP 16; TEMP 36.2; O2SAT 97
[2021-04-23] MEDS: Polyethylene Glycol 3350 17 GM PACKET PO (08:53)
[2021-04-23] MEDS: Enoxaparin 100 MG/ML SYR SC (08:53)
[2021-04-23] MEDS: Protein Nutritional Supplement 16 GM 1 OUNCE PACKET PO ×2 (08:53→21:52)
[2021-04-23] MEDS: Pantoprazole 40 MG TABCR PO (08:54)
[2021-04-23] MEDS: Senna TAB 2 TAB PO ×2 (08:54→21:53)
[2021-04-23] MEDS: busPIRone 5 MG TAB 10 MG PO ×3 (08:54→21:53)
[2021-04-23] MEDS: Spironolactone 25 MG TAB PO (08:54)
[2021-04-23] MEDS: Multivitamin w/Minerals TAB 1 TAB PO (08:54)
[2021-04-23] MEDS: Ascorbic Acid 500 MG TAB PO ×2 (08:55→21:53)
[2021-04-23] MEDS: DULoxetine 30 MG CAP 60 MG PO (08:55)
[2021-04-23] MEDS: Baclofen 10 MG TAB PO ×3 (08:55→21:53)
[2021-04-23] MEDS: amLODIPine 5 MG TAB 10 MG PO (08:55)
[2021-04-23] MEDS: Dronabinol 2.5 MG CAP PO ×2 (08:55→21:52)
[2021-04-23] MEDS: Docusate Sodium 100 MG CAP PO ×3 (08:57→21:53)
[2021-04-23] MEDS: Normal Saline Flush 10 ML SYR 20 ML IVP ×2 (09:13→21:54)
[2021-04-23] MEDS: Lidocaine 5% Patch 2 PATCH TP (10:07)
[2021-04-23 15:36] VITALS: BP 114/73; PULSE 69; RESP 18; TEMP 35.7; O2SAT 99
--- NOTE | 2021-04-23 15:42 | PTTR_ITS ---
Date of service: 04/23/21 Time of Service: 15:15 PT Notes Visit Reasons: Osteomyelitis Inpatient Physical Therapy Treatment Note [facility] No Charge Visit Date: 04/23/21 SUBJECTIVE: Favio is seen for unskilled PROM to the UEs/LEs for non-billable time. OBJECTIVE: PAIN: 02/09 PROM: Patient received PROM to the hand, wrist and elbow bilat. Performed modified UE PNF passively, with modification to avoid shoulder flexion, and shoulder ER beyond neutral due to shoulder pain. He received PROM to the knees, ankles and hips, with passive stretching to the hamstrings, hip adductors, and gastrocnemeus bilat. Also received passive LE PNF bilat. Post-treatment, he was positioned in bed with bolsters, with call marshall within reach. ASSESSMENT: PROM for prevention of contracture, without functional goals. PLAN: continue PROM, with intermittent re-evaluation by primary PT for re- assessment of needs. TREATMENT CODE/TIME: 3:15-3:40
--- NOTE | 2021-04-23 15:44 | W.PM.PROGNOT ---
Date of Service Date of service: 04/23/21 Time of Service: 15:45 Assessment and Plan Assessment and plan (1) Open wound of abdominal wall: Start date: 04/22/21 Status: Acute Assessment and plan: Two subcentimeter openings to midline surgical wound are improving. Rest of his sharla removed --pack open areas with Aquacell- change q3 days --may cover with Mepilex, change prn Qualifiers: Encounter type: sequela Qualified Code(s): S31.109S - Unspecified open wound of abdominal wall, unspecified quadrant without penetration into peritoneal cavity, sequela (2) Acute osteomyelitis of sacrum: Start date: 04/20/21 Status: Acute Assessment and plan: Bedside debridement of right ischial wound performed on thursday. Wound vac to be placed again today Restart Eliquis on 04/22 Antibiotics per Hospitalist service (3) Major depressive disorder: Status: Chronic Assessment and plan: anti-depressants per Hospitalist service Qualifiers: Major depression recurrence: single episode Active/Remission status: currently active Major depression episode severity: moderate Qualified Code(s): F32.1 - Major depressive disorder, single episode, moderate (4) Constipation: Status: Chronic Assessment and plan: Stoma is working well, producing soft stool. Continue regimen Qualifiers: Constipation type: other constipation type Qualified Code(s): K59.09 - Other constipation (5) Quadriplegia: Status: Chronic Assessment and plan: cont. P.T. to work with patient to try to improve his upper body strength to facilitate his care upon discharge from the hospital. He plans to live with the mother of his children Subjective Subjective Interval history since last seen: Favio is doing well. NO abdominal pain. He is eating well. Ostomy is functioning well. Exam Const General: cooperative, comfortable and no acute distress Orientation: alert and oriented x3 HENMT Head: normocephalic and atraumatic GI Palpation: soft, no hepatosplenomegaly and nontender Auscultation: normal bowel sounds Other: ostomy is pink. There is soft stool in his ostomy bag Midline incision- 2 small opening at the proximal end of the incision. NO erythema. No purulent discharge Packing replaced. Sharla removed Objective Last Vital Signs Temp 96.3 F L 04/23/21 15:36 Pulse 69 06/22/21 15:36 Resp 18 04/23/21 15:36 BP 114/73 04/23/21 15:36 Pulse Ox 99 04/23/21 15:36
[2021-04-23] MEDS: HYDROmorphone 2 MG/ML VIAL 1 MG IVP ×2 (15:51→21:51)
[2021-04-23] MEDS: Collagenase 30 GM TUBE TP (16:30)
--- NOTE | 2021-04-23 17:11 | PHA.REVIEW ---
Pharmacy Admission Review - Admission Clinical Review (Last Updated 03/24/21 @ 13:08 by Jose Montoya MD) Open wound of abdominal wall (Acute) Encounter for wound care (Acute) Visit for wound check (Acute) Acute osteomyelitis of sacrum (Acute) Decubitus ulcer of buttock, stage 4 (Acute) Malnutrition following gastrointestinal surgery (Acute) Iron deficiency anemia (Acute) S/P colostomy (Acute) DNR (do not resuscitate) (Acute) Discharge planning issues (Acute) No Known Allergies Allergy (Unverified 11/26/18 03:46) Resuscitation Status DNR/DNI Height 6 ft 2 in Weight 92.3 kg - Comments Comments/Follow Ups: 6 weeks of Antibiotic therapy for Osteomyelitis. Cefepime x 6 weeks starting from 04/10-05/22, Vanco x 6 weeks starting from 04/20-05/31 - Renal Dosing Renal Dosing: BUN 18 mg/dL (7-18) 04/22/21 09:30 Creatinine 0.7 mg/dL (0.70-1.30) 04/22/21 09:30 - Anticoagulation Anticoagulation: Hgb 10.6 g/dL (13.5-17.5) L 04/22/21 09:30 Hct 34.0 % (40.0-50.0) L 04/22/21 09:30 Plt Count 236 10^3/uL (130-400) 04/22/21 09:30 Creatinine 0.7 mg/dL (0.70-1.30) 04/22/21 09:30 - Relevant Labs Sodium 140 mmol/L (136-145) 04/22/21 09:30 Potassium 3.8 mmol/L (3.5-5.1) 04/22/21 09:30 Chloride 106 mmol/L (98-107) 04/22/21 09:30 C-Reactive Protein 1.97 mg/dL (0.0-0.3) H 04/22/21 09:30 - DM Control DM Control: Glucose 117 mg/dL (74-106) H 04/22/21 09:30 - BP Control BP Control: Blood Pressure 114/73 Blood Pressure 112/67 Antibiotic Activity - Pharmacy Antibiotic Review Pharmacy Antibiotic Activity: Reviewed, no change - Antibiotic Information Antibiotic Review Info: Cefepime (04/10/21-05/22/21) and Vanco (04/20/21-05/31/21) for 6 weeks to treat Osteomyelitis
--- NOTE | 2021-04-23 17:17 | NUR.NOTE ---
NO FOAM BOOTS. Stage I, blanchable to outer aspect of right foot distal to pinkie toe.
--- NOTE | 2021-04-23 17:35 | WOUNDCONS ---
- If Service Date Differs Date of service: 04/23/21 Time of Service: 17:35 Wound Initial Evaluation Narrative: Weekly re-evaluation done on Mr. Velasquez today. Bilateral Ischial wounds are smaller in size compared to last week. Tunnels still present on both wounds, same size. Wound vac on LEFT according to documentation has been in place and running @ 125 mmHg. Pt was initiated on IV abx last week to address Osteomyelitis Per Dr. Calderon bone is soft, likely osteo in sacrum will continue cefepime for 6 weeks, vanco for 6 weeks added for osteo. Improvement seen in overall wound bad health with the addition of Vacomycin. This happened the last time pt was started on vanco as well. Stage 2 PI Wound on Sacrum/Coccyx is improved, smaller in size and healing well, see photo below. [facility] bed has been on and per report nurses are rounding on the bed settings. Right Ischial wound continues to have fibrinous white slough present as noted in previous reports, though decreased in amount since last assessment. Wound was debrided @ bedside with sharps on 04/20/[address] Calderon. Difficult to remove all/enough of the slough d/t bone underneath. Wound has gotten smaller and looks healthier. For this reason I am recommending @ this time to continue DAILY Collagenase Santly to help remove slough as no tissue growth is able to happen on wound base until it is gone. Will revaluate in 1 weeks time and reconsider replacing Wound Vac on right side if majority of slough is removed. Pt's ostomy and suprapubic tube working well. moisture not a problem @ this time. Pt has been eating 50-100% of his meals. On Marinol. Nutrition continue to follow Pt. - Wound Right Ischial Tuberosity Pressure Ulcer Stage: IV Wound Bed Greatest Portion: Red (Granulation) Wound Bed Lesser Portion: Yellow (Slough) (white/fibrinous) Wound Length: 2.5 cm Wound Width: 2.5 cm Wound Depth: 2.5 cm (tunnel from 12-2 o'clock 3.5 cm) Left Ischial Tuberosity Pressure Ulcer Stage: IV Wound Bed Greatest Portion: Red (Granulation) Wound Length: 2.9 cm Wound Width: 3 cm Wound Depth: 2.2 cm (tunnel from 11-1 measuring 4cm) Sacrum/coccyx Pressure Ulcer Stage: II Wound General Appearance: Healing Well Wound Bed Greatest Portion: Pale [place] Wound Drainage Amount: None - Recomendation Recomendation:: Recommend continuing current treatment Right Ischial Tuberosity-- cleanse wound with anasept cleanser. Skin prep to serge wound skin. Apply collagenase santyl to slough on wound bed AND in tunnel (nickel thick). Place NS moistened 4x4 into wound using cotton applicator. Cover with gentac silicone island dressing. Change Daily Sacrum- Apply mepilex to stage 2 PI.Change every 3 days and PRN. Continue: Left ishial tuberosity--cleanse wound with anasept cleanser and gauze, pat dry. skin prep to periwound. Add promogran rosa (1 package ) to wound bed with wound vac dressing changes. Add WHITE FOAM to tunnel on wound. Ensure bone on bilateral wound base is covered with the white foam prior to black foam placementWound vac changes on , , THU- If wound vac not working- Wet to dry BID
[2021-04-23] MEDS: diazePAM 5 MG TAB 2.5 MG PO (21:51)
[2021-04-23] MEDS: Melatonin 3 MG TAB 9 MG PO (21:52)
[2021-04-23] MEDS: Apixaban 5 MG TAB PO (21:53)
[2021-04-23] MEDS: diphenhydrAMINE 25 MG CAP 50 MG PO (21:53)
[2021-04-23 23:10] VITALS: BP 164/88; PULSE 68; RESP 17; TEMP 37.1; O2SAT 99
[2021-04-24] MEDS: CEFEPIME 2 GM in Normal Saline 100 ML IVPB ×3 (00:53→17:32)
[2021-04-24] MEDS: Normal Saline 500 ML 50 ML IV (02:04)
[2021-04-24] MEDS: VANCOMYCIN/WATER (PEG) 1.25 GM/250 ML BAG IV ×2 (02:04→15:21)
[2021-04-24] MEDS: metroNIDAZOLE 500 MG/100 ML BAG 100 MG IVPB ×3 (06:06→22:22)
[2021-04-24] MEDS: Protein Nutritional Supplement 16 GM 1 OUNCE PACKET PO ×2 (08:13→19:46)
[2021-04-24] MEDS: Normal Saline Flush 10 ML SYR 20 ML IVP ×2 (08:13→19:47)
[2021-04-24] MEDS: Polyethylene Glycol 3350 17 GM PACKET PO (08:13)
[2021-04-24] MEDS: Senna TAB 2 TAB PO ×2 (08:14→19:44)
[2021-04-24] MEDS: Docusate Sodium 100 MG CAP PO ×3 (08:14→19:45)
[2021-04-24] MEDS: DULoxetine 30 MG CAP 60 MG PO (08:14)
[2021-04-24] MEDS: Spironolactone 25 MG TAB PO (08:14)
[2021-04-24] MEDS: Apixaban 5 MG TAB PO ×2 (08:14→19:46)
[2021-04-24] MEDS: Pantoprazole 40 MG TABCR PO (08:14)
[2021-04-24] MEDS: Multivitamin w/Minerals TAB 1 TAB PO (08:14)
[2021-04-24] MEDS: Dronabinol 2.5 MG CAP PO ×2 (08:15→19:43)
[2021-04-24] MEDS: Ascorbic Acid 500 MG TAB PO ×2 (08:15→19:44)
[2021-04-24] MEDS: amLODIPine 5 MG TAB 10 MG PO (08:15)
[2021-04-24] MEDS: Baclofen 10 MG TAB PO ×3 (08:15→19:45)
[2021-04-24] MEDS: busPIRone 5 MG TAB 10 MG PO ×3 (08:20→19:45)
[2021-04-24 08:22] VITALS: BP 131/81; PULSE 69; RESP 20; TEMP 36.7; O2SAT 97
--- NOTE | 2021-04-24 09:15 | OTTR_ITS ---
Date of service: 04/24/21 Time of Service: 07:25 Occupational Therapy Notes Occupational Therapy Inpatient Treatment Note Date: 04/24/21 PRECAUTIONS: Fall, standard, Full SUBJECTIVE: Pt was sitting in bed when OT arrived. He states that he is concerned about his (L) hand and the skin breakdown in his palm, however he notes that he has been trying to keep it clean. OBJECTIVE: PAIN:c/o pain in shoulders and slight pain in elbows. Manual Therapy [id number]: OT performed joint blocking techniques and manual mobilization to pts (B) UE at MP, IP and DIP as well as PROM to pts (B) thumbs into flexion. Pt was sore with thumb flexion on his (L) but better manageable and he has increased sensitivity when stretched into flexion and extension. Pts (B) UE is swollen but significantly better. OT works with pt on gross and fine motor grasp and release. He is receptive to this, once mobilized he has decreased pinch control but continues to be receptive to working towards increased (I). OT goes over and educates and trains pt in hand mobility, stretching and care for his (B) UE. Pt is receptive to education and training. ASSESSMENT/PLAN: Pt would benefit from continued skilled OT services for increased (I) in his ADL/IADL routines. TREATMENT CODES/TIME: [id number], 25 minutes (07:25) [facility]
[2021-04-24] MEDS: Lidocaine 5% Patch 2 PATCH TP (09:19)
[2021-04-24] MEDS: Acetaminophen 500 MG TAB 1000 MG PO (09:19)
[2021-04-24 11:13] LABS: Vancomycin, Trough 20.2 ug/mL (10.0-20.0)
[2021-04-24] MEDS: Normal Saline 500 ML 100 ML IV (13:53)
[2021-04-24] MEDS: Normal Saline Flush 10 ML SYR IVP (13:54)
[2021-04-24] MEDS: Collagenase 30 GM TUBE TP (15:59)
--- NOTE | 2021-04-24 16:14 | CHAPLAIN ---
Favio was watching [facility] when I visited. He said today rojas 10 weeks that he's been here, and that's a long time to be lying down. He continues to meet with this counselor by Bonnie or Kaylee. She has surgery recently, but they have a meeting scheduled for next week.
[2021-04-24 18:33] VITALS: BP 136/84; PULSE 71; RESP 18; TEMP 36.4; O2SAT 98
[2021-04-24] MEDS: diphenhydrAMINE 25 MG CAP 50 MG PO (19:43)
[2021-04-24] MEDS: diazePAM 5 MG TAB 2.5 MG PO (19:45)
[2021-04-24] MEDS: Melatonin 3 MG TAB 9 MG PO (22:22)
[2021-04-24] MEDS: LORazepam 0.5 MG TAB PO (22:23)
[2021-04-24] MEDS: HYDROmorphone 2 MG/ML VIAL 1 MG IVP (22:23)
[2021-04-24 23:31] VITALS: BP 118/76; PULSE 77; RESP 17; TEMP 37.1; O2SAT 99
[2021-04-25] MEDS: CEFEPIME 2 GM in Normal Saline 100 ML IVPB ×3 (00:10→16:40)
[2021-04-25] MEDS: VANCOMYCIN/WATER (PEG) 1.25 GM/250 ML BAG IV ×2 (01:35→14:55)
[2021-04-25] MEDS: HYDROmorphone 2 MG/ML VIAL 1 MG IVP ×2 (03:49→09:57)
[2021-04-25] MEDS: metroNIDAZOLE 500 MG/100 ML BAG 100 MG IVPB ×3 (05:48→22:03)
[2021-04-25 07:53] VITALS: BP 124/78; PULSE 70; RESP 17; TEMP 36.5; O2SAT 99
[2021-04-25] MEDS: Normal Saline Flush 10 ML SYR 20 ML IVP ×2 (08:30→21:00)
[2021-04-25] MEDS: Acetaminophen 500 MG TAB 1000 MG PO ×3 (08:30→21:04)
[2021-04-25] MEDS: Polyethylene Glycol 3350 17 GM PACKET PO (08:31)
[2021-04-25] MEDS: Spironolactone 25 MG TAB PO (08:31)
[2021-04-25] MEDS: DULoxetine 30 MG CAP 60 MG PO (08:31)
[2021-04-25] MEDS: amLODIPine 5 MG TAB 10 MG PO (08:31)
[2021-04-25] MEDS: Protein Nutritional Supplement 16 GM 1 OUNCE PACKET PO ×2 (08:31→20:59)
[2021-04-25] MEDS: Senna TAB 2 TAB PO ×2 (08:32→21:03)
[2021-04-25] MEDS: busPIRone 5 MG TAB 10 MG PO ×3 (08:32→21:04)
[2021-04-25] MEDS: Pantoprazole 40 MG TABCR PO (08:32)
[2021-04-25] MEDS: Dronabinol 2.5 MG CAP PO ×2 (08:32→21:02)
[2021-04-25] MEDS: Multivitamin w/Minerals TAB 1 TAB PO (08:32)
[2021-04-25] MEDS: Baclofen 10 MG TAB PO ×3 (08:32→21:03)
[2021-04-25] MEDS: Docusate Sodium 100 MG CAP PO ×3 (08:32→21:03)
[2021-04-25] MEDS: Ascorbic Acid 500 MG TAB PO ×2 (08:32→21:04)
[2021-04-25] MEDS: Apixaban 5 MG TAB PO ×2 (08:33→21:03)
[2021-04-25] MEDS: Normal Saline Flush 10 ML SYR IVP ×2 (09:58→13:43)
[2021-04-25] MEDS: Lidocaine 5% Patch 2 PATCH TP (09:58)
--- NOTE | 2021-04-25 10:14 | OT.INNT ---
Date of service: 04/25/21 Time of Service: 10:14 Occupational Therapy Notes 04/25/21 OT attempted to see pt who states that he would like to hold for today, he states that he was up all night due to the wound vac. Michelle Pearce, OTR/[facility]
[2021-04-25] MEDS: Collagenase 30 GM TUBE TP (10:45)
--- NOTE | 2021-04-25 12:48 | W.NUTRFU ---
Date of service: 04/25/21 Time of Service: 12:48 Nutritional Follow up NOTE: Per wound notes, wounds healing well. Request prealbumin to assess nutritional status. Following regular meal plan with 100% meal completion-meal plan providing 1800 -2000 kcal, 50-60 g protein. Diet supplemented with MVI, Vit C, liquid protein 1 oz TID and ensure clear BID providing additional 400 calories and 65 g protein. Current intake averaging 2400 kcal, 120 g protein providing excellent substrate for optimal wound healing. Meeting macro and micronutrient needs for weight maintenance and wound healing. Will continue to follow. Time Spent in Nutritional Counseling and Treatment: 5
[2021-04-25 15:54] VITALS: BP 129/72; PULSE 62; RESP 17; TEMP 36.7; O2SAT 99
[2021-04-25] MEDS: diazePAM 5 MG TAB 2.5 MG PO (21:01)
[2021-04-25] MEDS: Melatonin 3 MG TAB 9 MG PO (21:03)
[2021-04-25] MEDS: diphenhydrAMINE 25 MG CAP 50 MG PO (21:03)
[2021-04-25] MEDS: LORazepam 0.5 MG TAB PO (21:52)
[2021-04-25 23:05] VITALS: BP 145/84; PULSE 70; RESP 17; TEMP 36.6; O2SAT 99
[2021-04-26] MEDS: CEFEPIME 2 GM in Normal Saline 100 ML IVPB ×3 (00:48→16:08)
[2021-04-26] MEDS: HYDROmorphone 2 MG/ML VIAL 1 MG IVP ×2 (00:53→10:57)
[2021-04-26] MEDS: VANCOMYCIN/WATER (PEG) 1.25 GM/250 ML BAG IV ×2 (02:41→14:14)
[2021-04-26] MEDS: metroNIDAZOLE 500 MG/100 ML BAG 100 MG IVPB ×3 (05:55→22:45)
[2021-04-26 07:56] VITALS: BP 147/96; PULSE 66; RESP 18; TEMP 35.4; O2SAT 98
--- NOTE | 2021-04-26 08:20 | PDOC.CMPRO ---
- If Service Date Differs Date of service: 04/26/21 Time of Service: 08:20 Care Management Progress Note S/O: Favio continues to show improvement. His wounds are slowly healing and his ostomy is functioning well. Overall, Favio has been in good spirits but still expresses anxiety about his future. He has verbalized to CM that he finds it stressful not knowing where he will be going once he leaves [facility]. Ultimately he hopes to go home to Nicki's house but at this time that is not feasible. He is unable to assist with transfers or to perform any of his ADLs. He requires a 2 person assist with most treatments such as wound care and turns. Nicki lives alone. It is likely Favio will need to go to rehab for a period to gain strength prior to returning to the community. 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 A LTM application has been submitted and the family is waiting for approval. Favio may go to a facility or an [facility] home before ultimately returning home. will continue to support Favio and his discharge planning needs.
[2021-04-26] MEDS: Protein Nutritional Supplement 16 GM 1 OUNCE PACKET PO ×2 (08:29→20:54)
[2021-04-26] MEDS: Polyethylene Glycol 3350 17 GM PACKET PO (08:29)
[2021-04-26] MEDS: Dronabinol 2.5 MG CAP PO ×2 (08:31→20:58)
[2021-04-26] MEDS: DULoxetine 30 MG CAP 60 MG PO (08:31)
[2021-04-26] MEDS: Senna TAB 2 TAB PO ×2 (08:32→20:57)
[2021-04-26] MEDS: Pantoprazole 40 MG TABCR PO (08:32)
[2021-04-26] MEDS: busPIRone 5 MG TAB 10 MG PO ×3 (08:32→20:59)
[2021-04-26] MEDS: Apixaban 5 MG TAB PO ×2 (08:32→20:58)
[2021-04-26] MEDS: Multivitamin w/Minerals TAB 1 TAB PO (08:32)
[2021-04-26] MEDS: amLODIPine 5 MG TAB 10 MG PO (08:32)
[2021-04-26] MEDS: Spironolactone 25 MG TAB PO (08:32)
[2021-04-26] MEDS: Normal Saline Flush 10 ML SYR 20 ML IVP ×2 (08:33→20:55)
[2021-04-26] MEDS: Docusate Sodium 100 MG CAP PO ×3 (08:33→20:57)
[2021-04-26] MEDS: Ascorbic Acid 500 MG TAB PO ×2 (08:33→20:59)
[2021-04-26] MEDS: Baclofen 10 MG TAB PO ×3 (08:33→20:58)
[2021-04-26] MEDS: LORazepam 0.5 MG TAB PO ×2 (08:54→20:56)
[2021-04-26] MEDS: Normal Saline Flush 10 ML SYR IVP (10:57)
[2021-04-26] MEDS: Lidocaine 5% Patch 2 PATCH TP (10:58)
--- NOTE | 2021-04-26 11:28 | NT_ITS ---
Date of service: 04/26/21 Time of Service: 10:15 PT Notes Visit Reasons: Osteomyelitis Inpatient Physical Therapy Treatment Note [facility] Date: 04/26/2021 SUBJECTIVE: Favio is seen for unskilled PROM to B LE for non-billable time. OBJECTIVE: PAIN: No c/o pain PROM: Patient received PROM to the ankles, knees and hips, with passive stretching to B quads, hip adductors, and gastrocnemeus. Also received passive PNF to B LE. Post-treatment, he was positioned in bed with bolsters, with call marshall within reach. ASSESSMENT: PROM for prevention of contracture, without functional goals. PLAN: Continue PROM, with intermittent re-evaluation by primary PT for re- assessment of needs. TREATMENT CODE/TIME: 20 minutes; No Charge (10:15)
[2021-04-26] MEDS: Collagenase 30 GM TUBE TP (12:06)
[2021-04-26] MEDS: Acetaminophen 500 MG TAB 1000 MG PO ×2 (12:11→20:59)
[2021-04-26 13:50] LABS: Vancomycin, Trough 17.4 ug/mL (10.0-20.0)
[2021-04-26] MEDS: Normal Saline 500 ML 30 ML IV (14:13)
[2021-04-26 15:20] VITALS: BP 111/67; PULSE 65; RESP 16; TEMP 36.9; O2SAT 98
[2021-04-26] MEDS: diazePAM 5 MG TAB 2.5 MG PO (20:55)
[2021-04-26] MEDS: Melatonin 3 MG TAB 9 MG PO (20:56)
[2021-04-26] MEDS: diphenhydrAMINE 25 MG CAP 50 MG PO (20:57)
[2021-04-26 23:30] VITALS: BP 122/77; PULSE 74; RESP 19; TEMP 36.5; O2SAT 99
[2021-04-27] MEDS: CEFEPIME 2 GM in Normal Saline 100 ML IVPB ×4 (00:14→23:37)
[2021-04-27] MEDS: VANCOMYCIN/WATER (PEG) 1.25 GM/250 ML BAG IV ×2 (02:00→14:14)
[2021-04-27] MEDS: metroNIDAZOLE 500 MG/100 ML BAG 100 MG IVPB ×3 (05:53→21:19)
[2021-04-27 08:06] VITALS: BP 146/92; PULSE 79; RESP 18; TEMP 36.5; O2SAT 98
[2021-04-27] MEDS: Normal Saline Flush 10 ML SYR 20 ML IVP ×2 (08:35→20:58)
[2021-04-27] MEDS: Protein Nutritional Supplement 16 GM 1 OUNCE PACKET PO ×2 (08:35→20:57)
[2021-04-27] MEDS: Polyethylene Glycol 3350 17 GM PACKET PO (08:35)
[2021-04-27] MEDS: Dronabinol 2.5 MG CAP PO ×2 (08:36→20:56)
[2021-04-27] MEDS: Baclofen 10 MG TAB PO ×3 (08:36→20:57)
[2021-04-27] MEDS: Ascorbic Acid 500 MG TAB PO ×2 (08:36→20:57)
[2021-04-27] MEDS: DULoxetine 30 MG CAP 60 MG PO (08:36)
[2021-04-27] MEDS: busPIRone 5 MG TAB 10 MG PO ×3 (08:37→20:57)
[2021-04-27] MEDS: Docusate Sodium 100 MG CAP PO ×3 (08:37→20:56)
[2021-04-27] MEDS: Senna TAB 2 TAB PO ×2 (08:37→20:56)
[2021-04-27] MEDS: Spironolactone 25 MG TAB PO (08:37)
[2021-04-27] MEDS: Pantoprazole 40 MG TABCR PO (08:37)
[2021-04-27] MEDS: amLODIPine 5 MG TAB 10 MG PO (08:37)
[2021-04-27] MEDS: Multivitamin w/Minerals TAB 1 TAB PO (08:37)
[2021-04-27] MEDS: Apixaban 5 MG TAB PO ×2 (08:38→20:57)
[2021-04-27] MEDS: Lidocaine 5% Patch 2 PATCH TP (10:46)
[2021-04-27] MEDS: Normal Saline Flush 10 ML SYR IVP ×3 (10:48→21:50)
[2021-04-27] MEDS: HYDROmorphone 2 MG/ML VIAL 1 MG IVP ×3 (10:51→21:49)
[2021-04-27] MEDS: Acetaminophen 500 MG TAB 1000 MG PO ×2 (13:05→20:56)
[2021-04-27] MEDS: Normal Saline 500 ML 30 ML IV (14:15)
[2021-04-27] MEDS: Collagenase 30 GM TUBE TP (15:59)
[2021-04-27 16:03] VITALS: BP 107/71; PULSE 67; RESP 17; TEMP 36.3; O2SAT 98
[2021-04-27] MEDS: Melatonin 3 MG TAB 9 MG PO (20:56)
[2021-04-27] MEDS: diphenhydrAMINE 25 MG CAP 50 MG PO (20:57)
[2021-04-27] MEDS: diazePAM 5 MG TAB 2.5 MG PO (20:57)
[2021-04-27] MEDS: LORazepam 0.5 MG TAB PO (21:04)
[2021-04-27 23:42] VITALS: BP 104/66; PULSE 77; RESP 17; TEMP 36.6; O2SAT 98
[2021-04-28] MEDS: VANCOMYCIN/WATER (PEG) 1.25 GM/250 ML BAG IV ×2 (02:10→14:39)
[2021-04-28] MEDS: Normal Saline Flush 10 ML SYR IVP (02:11)
[2021-04-28] MEDS: Acetaminophen 500 MG TAB 1000 MG PO ×3 (04:02→20:14)
[2021-04-28] MEDS: metroNIDAZOLE 500 MG/100 ML BAG 100 MG IVPB ×3 (05:26→21:29)
[2021-04-28 08:09] VITALS: BP 150/91; PULSE 73; RESP 15; TEMP 36.1; O2SAT 98
[2021-04-28] MEDS: Protein Nutritional Supplement 16 GM 1 OUNCE PACKET PO ×2 (08:46→20:11)
[2021-04-28] MEDS: Polyethylene Glycol 3350 17 GM PACKET PO (08:46)
[2021-04-28] MEDS: CEFEPIME 2 GM in Normal Saline 100 ML IVPB (08:46)
[2021-04-28] MEDS: Normal Saline Flush 10 ML SYR 20 ML IVP ×2 (08:47→20:19)
[2021-04-28] MEDS: DULoxetine 30 MG CAP 60 MG PO (08:47)
[2021-04-28] MEDS: Dronabinol 2.5 MG CAP PO ×2 (08:47→20:11)
[2021-04-28] MEDS: Spironolactone 25 MG TAB PO (08:48)
[2021-04-28] MEDS: Baclofen 10 MG TAB PO ×3 (08:48→20:14)
[2021-04-28] MEDS: amLODIPine 5 MG TAB 10 MG PO (08:48)
[2021-04-28] MEDS: Senna TAB 2 TAB PO ×2 (08:48→20:14)
[2021-04-28] MEDS: Multivitamin w/Minerals TAB 1 TAB PO (08:48)
[2021-04-28] MEDS: busPIRone 5 MG TAB 10 MG PO (08:48)
[2021-04-28] MEDS: Ascorbic Acid 500 MG TAB PO ×2 (08:48→20:14)
[2021-04-28] MEDS: Pantoprazole 40 MG TABCR PO (08:49)
[2021-04-28] MEDS: Docusate Sodium 100 MG CAP PO ×3 (08:49→20:11)
[2021-04-28] MEDS: Apixaban 5 MG TAB PO ×2 (08:49→20:13)
[2021-04-28] MEDS: Collagenase 30 GM TUBE TP (11:53)
[2021-04-28] MEDS: Lidocaine 5% Patch 2 PATCH TP (11:53)
[2021-04-28 13:39] LABS: CREATININE 0.7 mg/dL (0.70-1.30)
--- NOTE | 2021-04-28 13:43 | W.PM.PROGNOT ---
Date of Service Date of service: 04/28/21 Time of Service: 13:43 Assessment and Plan Assessment and plan (1) Acute osteomyelitis of sacrum: Start date: 04/28/21 Start time: 14:00 Status: Acute Assessment and plan: 6 weeks of osteo after debriding Dr. Calderon felt bone was soft restarted on vanco. he will need 6 weeks of vanco and switched from cefepime to cipro he will likely have acute on chronic osteo of sacrum requiring doses of vanco per previous conversation with ID. (2) Major depressive disorder: Start date: 04/28/21 Start time: 14:05 Status: Chronic Assessment and plan: Appears teary eyed today Busbpar increased today Qualifiers: Major depression recurrence: single episode Active/Remission status: currently active Major depression episode severity: moderate Qualified Code(s): F32.1 - Major depressive disorder, single episode, moderate (3) Quadriplegia: Start date: 04/28/21 Start time: 14:06 Status: Chronic Assessment and plan: cont. P.T. to work with patient to try to improve his upper body strength to facilitate his care upon discharge from the hospital. He plans to live with the mother of his children (4) DVT prophylaxis: Start date: 04/28/21 Start time: 14:07 Status: Chronic Assessment and plan: On apixaban for RLE DVT (5) Constipation: Start date: 04/28/21 Start time: 14:06 Status: Chronic Assessment and plan: Continue bowel regimen. Ostomy producing soft stool. Continue regimen discussed with Dr. Montoya Qualifiers: Constipation type: other constipation type Qualified Code(s): K59.09 - Other constipation Subjective Subjective Patient reports: other Interval history since last seen: Patient depressed today, in tears. He is upset his medications were changed. Favio has very little control over anything in his life right now and gets emotional when things are not discussed with him. We did discuss a plan for his pain management. Will trial fentanyl patch. Dilaudid scheduled at hs for sleep and pain, then he will either IV or po for pain as needed, he suffers severe shoulder pain but hoping with the fentanyl patch this will help him. I also increased his buspar to 40 mg BID, continue to monitor depression and increase cymbalta next week if needed. Favio is in a vulnerable place. He denies SOB, N/V/D, CP. Exam Narrative Exam Narrative: Micha is alert and conversant w/ me and the staff. No acute pain. He is tearful today however and stating he is not having a very good day. Lungs are clear heart is regular Abdomen soft and nondistended w/ ostomy draining light brown semiformed stool Decubitus wounds have wound vacuum in place., Extremities some edema of bilateral ankles Objective Last Vital Signs Temp 36.1 C L 04/28/21 08:09 Pulse 73 04/28/21 08:09 Resp 15 04/28/21 08:09 BP 150/91 H 04/28/21 08:09 Pulse Ox 98 04/28/21 08:09
[2021-04-28 13:46] LABS: Vancomycin, Trough 18.9 ug/mL (10.0-20.0)
[2021-04-28] MEDS: fentaNYL 12 MCG PATCH TD (14:11)
[2021-04-28 15:37] VITALS: BP 154/88; PULSE 69; RESP 17; TEMP 36.2; O2SAT 98
[2021-04-28] MEDS: CIPROFLOXACIN 400 MG/200 ML BAG 200 MG IVPB ×2 (16:32→23:30)
[2021-04-28] MEDS: HYDROmorphone 4 MG TAB PO (18:39)
[2021-04-28] MEDS: Melatonin 3 MG TAB 9 MG PO (20:12)
[2021-04-28] MEDS: diazePAM 5 MG TAB 2.5 MG PO (20:13)
[2021-04-28] MEDS: busPIRone 5 MG TAB 20 MG PO (20:13)
[2021-04-28] MEDS: diphenhydrAMINE 25 MG CAP 50 MG PO (20:14)
[2021-04-28] MEDS: HYDROmorphone 2 MG/ML VIAL 1 MG IVP (21:29)
[2021-04-28] MEDS: LORazepam 0.5 MG TAB PO (23:29)
[2021-04-28 23:30] VITALS: BP 98/62; PULSE 79; RESP 17; TEMP 36.9; O2SAT 97
[2021-04-29] MEDS: VANCOMYCIN/WATER (PEG) 1.25 GM/250 ML BAG IV ×2 (01:38→14:37)
[2021-04-29] MEDS: HYDROmorphone 4 MG TAB PO ×2 (01:50→11:23)
[2021-04-29] MEDS: Acetaminophen 500 MG TAB 1000 MG PO ×3 (03:46→22:40)
[2021-04-29] MEDS: metroNIDAZOLE 500 MG/100 ML BAG 100 MG IVPB ×3 (06:02→22:40)
[2021-04-29 07:00] LABS: Abs Immature Grans 0.04 10^3/uL (0.0-0.06); Absolute Basophil Count 0.05 10^3/uL (0.0-0.2); Absolute Lymphocyte Count 1.52 10^3/uL (1.2-3.4); Absolute Monocyte Count 0.56 10^3/uL (0.1-0.8); Absolute Neutrophil Count 3.64 10^3/uL (1.2-6.7); Basophils % 0.8; Eosinophils % 6.4; HCT 35.3 % (40.0-50.0); Immature Grans % 0.6; Lymphocytes % 24.5; MCH 27.2 pg (27.0-33.0); MCHC 31.2 % (32.0-36.0); MCV 87.4 fL (80-95); MPV 11.3 fL (8.0-11.0); Neutrophils % 58.7; Nucleated RBC 0 %; Platelet Count 205 10^3/uL (130-400); RBC 4.04 10^6/uL (4.36-5.78); RDW 17.3 % (11.8-14.1); RDW-SD 55.7 fL; WBC 6.21 10^3/uL (4.4-10.8)
[2021-04-29 07:25] LABS: ALT 16 U/L (16-63); AST 10 U/L (15-37); Albumin 2.8 g/dL (3.4-5.0); Alkaline Phosphatase 65 U/L (46-116); Anion Gap 9.5 mmol/L (3-11); BUN 18 mg/dL (7-18); Bilirubin, Total 0.3 mg/dL (0.2-1.0); C-Reactive Protein 0.79 mg/dL (0.0-0.3); CO2 23.5 mmol/L (21.0-32.0); CREATININE 0.7 mg/dL (0.70-1.30); Calcium 10.4 mg/dL (8.5-10.1); Chloride 106 mmol/L (98-107); Glucose 97 mg/dL (74-106); Potassium 3.6 mmol/L (3.5-5.1); Sodium 139 mmol/L (136-145); Total Protein 6.6 g/dL (6.4-8.2)
--- NOTE | 2021-04-29 08:09 | W.PALPGNOTE ---
Date of service: 04/29/21 Time of Service: 06:09 Assessment and Plan Assessment and plan (1) Open wound of abdominal wall: Status: Acute Qualifiers: Encounter type: sequela Qualified Code(s): S31.109S - Unspecified open wound of abdominal wall, unspecified quadrant without penetration into peritoneal cavity, sequela (2) Acute osteomyelitis of sacrum: Status: Acute Assessment and plan: Continue wound care and antibiotics (3) Iron deficiency anemia: Status: Acute (4) Constipation due to neurogenic bowel: Status: Resolved (5) Major depressive disorder: Status: Chronic Assessment and plan: He is on more full psych meds including BuSpar, diazepam, Cymbalta, melatonin, methylphenidate, and Marinol. Since the sleep is somewhat of a problem it may be helpful to do a trial of stopping the diazepam and adding trazodone. Favio is very clear that he wants Eliane to be involved in any medication changes and for the 2 of them to talk about it before medications are changed. I think it is important that his methylphenidate be given early in the day so that he is not having any dosing after 2 PM Qualifiers: Major depression recurrence: single episode Active/Remission status: currently active Major depression episode severity: moderate Qualified Code(s): F32.1 - Major depressive disorder, single episode, moderate (6) Palliative care patient: Status: Acute Assessment and plan: It is interesting how he is noted that many of his visitors do not get along with each other and that that is causing some problems for him. He seems to be navigating caring for his visitors. I am glad that he is in contact with a counselor because I think that he can learn better strategies. It definitely does affect him as weekends tend to be his more depressed days. I see that he has been started on zinc. I am happy about this as sometimes this can help with some muscle spasms. I would also recommend that he be started on a magnesium supplement 2-3 times a day and see if that affects his spasms. again he wanted Eliane to be involved with all of these medication changes. I will continue to follow Subjective Subjective Interval history since last seen: Favio was sleeping when I came to see him. I will see him later this evening. Per nursing he has been doing very very well. His abdomen has been healing up, his stoma looks good without irritation. He has not had any new complaints per nursing I returned to see Favio today. He states that he was sorry he missed me in the morning. His sleep has been very erratic. Sometimes he sleeps early in the evening and then is up in the middle of the night and other times he cannot get to sleep until 3 AM. He does take sleeping pills but he does not really know if they are helping. He tries not to take naps during the day. He often times will watch movies during the day to keep himself awake. He states that nursing is very considerate and quiet when they come in for his antibiotic dosing at midnight but still his sleep is disturbed. He states that he had some weepy days again last weekend. He states that weekends are often difficult times because he has many visitors and they do not get along with each other. A previous girlfriend did come by and he really enjoyed her visit. Unfortunately he has to curtail some of his visitors time so that they do not run into each other. He is trying to be honest and forthright, but also has come to the conclusion that sometimes it is better not to say who is come to see him to certain people. He is working through this but it is causing him some concern. Spasms continue to be bad Shoulder pain seems somewhat better. He is presently using a brace on his right arm and he feels that he has perhaps a bit more control. Nausea and bowels seem better Exam Narrative Exam Narrative: Cooperative, forthright, in a good mood tonight Resp Effort & Inspection: normal respiratory effort and able to speak in complete sentences Cardio Rate: regular rate GI Palpation: soft and other (Per nursing abdominal wound healing well) Objective Last Vital Signs Temp 98.4 F 04/28/21 23:30 Pulse 79 04/28/21 23:30 Resp 17 04/28/21 23:30 BP 98/62 L 04/28/21 23:30 Pulse Ox 97 04/28/21 23:30 Laboratory Results - last 24 hr 04/28/21 04/28/21 04/29/21 13:20 13:20 06:10 WBC RBC Hgb Hct MCV MCH MCHC RDW Plt Count MPV Immature Gran % Neutrophils % Lymphocytes % Monocytes % Eosinophils % Basophils % Nucleated RBC % Absolute Neutrophils Absolute Lymphocytes Absolute Monocytes Absolute Eosinophils Absolute Basophils Sodium 139 Potassium 3.6 Chloride 106 Carbon Dioxide 23.5 Anion Gap 9.5 BUN 18 Creatinine 0.7 0.7 Estimated GFR/1.73 m2 >= 60.00 >= 60.00 Glucose 97 Calcium 10.4 H Total Bilirubin 0.3 AST 10 L ALT 16 Alkaline Phosphatase 65 C-Reactive Protein 0.79 H Total Protein 6.6 Albumin 2.8 L Vancomycin Trough 18.9 04/29/21 06:10 WBC 6.21 RBC 4.04 L Hgb 11.0 L Hct 35.3 L MCV 87.4 MCH 27.2 MCHC 31.2 L RDW 17.3 H Plt Count 205 MPV 11.3 H Immature Gran % 0.6 Neutrophils % 58.7 Lymphocytes % 24.5 Monocytes % 9.0 Eosinophils % 6.4 Basophils % 0.8 Nucleated RBC % 0 Absolute Neutrophils 3.64 Absolute Lymphocytes 1.52 Absolute Monocytes 0.56 Absolute Eosinophils 0.40 Absolute Basophils 0.05 Sodium Potassium Chloride Carbon Dioxide Anion Gap BUN Creatinine Estimated GFR/1.73 m2 Glucose Calcium Total Bilirubin AST ALT Alkaline Phosphatase C-Reactive Protein Total Protein Albumin Vancomycin Trough
--- NOTE | 2021-04-29 09:33 | W.NUTRFU ---
Date of service: 04/29/21 Time of Service: 09:35 Nutritional Follow up NOTE: Nutritional F/U per RD recommendation for further nutritional supplementation on 04/26. Patient has Alb 2.8 at this time and Pre-alb results still pending. Rec adding 220 mg Zn sulfate x 14 days to help with wound healing per MD. approval. reports at morning meeting indicate patient has reduced appetite yesterday and today. This RD will F/U face to face today and check w/ CDM on PO intake at lunch meal. Time Spent in Nutritional Counseling and Treatment: 0 minutes face to face
--- NOTE | 2021-04-29 09:38 | OT.INTREAT ---
Date of service: 04/29/21 Time of Service: 09:15 Occupational Therapy Notes Occupational Therapy Inpatient Treatment Note Date: 04/29/21 PRECAUTIONS: Fall, Standard, DNR/DNI SUBJECTIVE: Pt was sitting in chair when OT arrived, he reports that his (B) hands are really stiff and that he has not utilized his orthosis over the weekend. OBJECTIVE: PAIN:c/o pain in elbows, shoulders Manual Therapy [id number]: OT performed PROM to pts digits which are both (B) in slightly contracted positions. OT performed mobilization to decrease pts risk for contractures and increase functional use of pts hands and digits for ADL.IADL routines. OT then performed ROM into flexion and extension of digits. (L) was sensitive and OT educated and trained pt in desensitization program and educated on the importance of wearing orthosis specifically on the (R) to decrease skin breakdown. OT will monitor pts response to todays session and progress accordingly. ASSESSMENT/PLAN: Pt would benefit from continued skilled OT services for (B) hand/digit mobility and increased (I) in his ADL routines. TREATMENT CODES/TIME: [id number], 15 minutes (07:40) Michelle Pearce OTR/[facility]
[2021-04-29 09:41] LABS: Prealbumin 26 mg/dL (20-40)
[2021-04-29] MEDS: Normal Saline Flush 10 ML SYR 20 ML IVP ×2 (09:52→22:41)
[2021-04-29] MEDS: CIPROFLOXACIN 400 MG/200 ML BAG 200 MG IVPB ×2 (09:56→17:26)
[2021-04-29] MEDS: Dronabinol 2.5 MG CAP PO (10:00)
[2021-04-29] MEDS: Multivitamin w/Minerals TAB 1 TAB PO (10:00)
[2021-04-29] MEDS: DULoxetine 30 MG CAP 60 MG PO (10:00)
[2021-04-29] MEDS: Docusate Sodium 100 MG CAP PO ×3 (10:01→22:40)
[2021-04-29] MEDS: Apixaban 5 MG TAB PO ×2 (10:01→22:39)
[2021-04-29] MEDS: busPIRone 5 MG TAB 20 MG PO ×2 (10:02→22:38)
[2021-04-29] MEDS: amLODIPine 5 MG TAB 10 MG PO (10:04)
[2021-04-29] MEDS: Spironolactone 25 MG TAB PO (10:04)
[2021-04-29] MEDS: Baclofen 10 MG TAB PO ×3 (10:05→22:37)
[2021-04-29] MEDS: Pantoprazole 40 MG TABCR PO (10:05)
[2021-04-29] MEDS: Ascorbic Acid 500 MG TAB PO ×2 (10:05→22:40)
[2021-04-29] MEDS: Polyethylene Glycol 3350 17 GM PACKET PO (10:05)
[2021-04-29] MEDS: Protein Nutritional Supplement 16 GM 1 OUNCE PACKET PO ×2 (10:06→22:43)
[2021-04-29] MEDS: Lidocaine 5% Patch 2 PATCH TP (10:06)
[2021-04-29] MEDS: Senna TAB 2 TAB PO ×2 (10:08→22:40)
[2021-04-29] MEDS: Normal Saline Flush 10 ML SYR IVP ×2 (14:41→16:16)
[2021-04-29] MEDS: Collagenase 30 GM TUBE TP (15:05)
--- NOTE | 2021-04-29 15:14 | PTTR_ITS ---
Date of service: 04/29/21 Time of Service: 14:45 PT Notes Visit Reasons: Osteomyelitis Inpatient Physical Therapy Treatment Note [facility] Date: 04/29/2021 SUBJECTIVE: Favio is seen for unskilled PROM to B LE for non-billable time. OBJECTIVE: PAIN: Patient c/o discomfort with B LE spasms PROM: Patient received PROM to the ankles, knees and hips, with passive str etching to B quads, hip adductors, and gastrocnemeus. Also received passive PNF to B LE. Assisted nursing with rolling and positioning for dressing change. Post-treatment, he was positioned in bed with bolsters, with call marshall within reach. ASSESSMENT: PROM for prevention of contracture, without functional goals. PLAN: Continue PROM, with intermittent re-evaluation by primary PT for re- assessment of needs. TREATMENT CODE/TIME: 25 minutes; No Charge (14:45)
[2021-04-29] MEDS: HYDROmorphone 2 MG/ML VIAL 1 MG IVP ×2 (16:16→22:41)
[2021-04-29] MEDS: Methylphenidate 10 MG TAB PO (16:20)
[2021-04-29 16:36] VITALS: BP 120/79; PULSE 70; RESP 20; TEMP 36.1; O2SAT 99
[2021-04-29] MEDS: diazePAM 5 MG TAB 2.5 MG PO (22:34)
[2021-04-29] MEDS: diphenhydrAMINE 25 MG CAP 50 MG PO (22:36)
[2021-04-29] MEDS: Melatonin 3 MG TAB 9 MG PO (22:37)
[2021-04-29] MEDS: LORazepam 0.5 MG TAB PO (22:59)
[2021-04-30] VITALS: BP 147/89; PULSE 79; RESP 20; TEMP 36.6; O2SAT 98
[2021-04-30] MEDS: CIPROFLOXACIN 400 MG/200 ML BAG 200 MG IVPB ×3 (01:13→16:27)
[2021-04-30] MEDS: VANCOMYCIN/WATER (PEG) 1.25 GM/250 ML BAG IV ×2 (02:57→14:43)
[2021-04-30] MEDS: metroNIDAZOLE 500 MG/100 ML BAG 100 MG IVPB ×3 (06:26→22:30)
[2021-04-30] MEDS: Methylphenidate 10 MG TAB PO ×2 (07:21→16:27)
[2021-04-30] MEDS: Dronabinol 2.5 MG CAP PO ×2 (07:21→16:27)
[2021-04-30] MEDS: Normal Saline Flush 10 ML SYR 20 ML IVP ×2 (08:06→21:09)
[2021-04-30] MEDS: Protein Nutritional Supplement 16 GM 1 OUNCE PACKET PO ×2 (08:06→21:12)
[2021-04-30] MEDS: Polyethylene Glycol 3350 17 GM PACKET PO (08:07)
[2021-04-30] MEDS: Multivitamin w/Minerals TAB 1 TAB PO (08:07)
[2021-04-30] MEDS: Apixaban 5 MG TAB PO ×2 (08:07→21:10)
[2021-04-30] MEDS: busPIRone 5 MG TAB 20 MG PO ×2 (08:07→21:10)
[2021-04-30] MEDS: Ascorbic Acid 500 MG TAB PO ×2 (08:08→21:10)
[2021-04-30] MEDS: Spironolactone 25 MG TAB PO (08:08)
[2021-04-30] MEDS: Senna TAB 2 TAB PO ×2 (08:08→21:10)
[2021-04-30] MEDS: DULoxetine 30 MG CAP 60 MG PO (08:08)
[2021-04-30] MEDS: Baclofen 10 MG TAB PO ×3 (08:08→21:10)
[2021-04-30] MEDS: Pantoprazole 40 MG TABCR PO (08:08)
[2021-04-30] MEDS: Zinc Sulfate 220 MG TAB PO (08:08)
[2021-04-30] MEDS: Docusate Sodium 100 MG CAP PO ×3 (08:08→21:10)
[2021-04-30] MEDS: amLODIPine 5 MG TAB 10 MG PO (08:08)
[2021-04-30 08:15] VITALS: BP 126/82; PULSE 75; RESP 18; TEMP 36.6; O2SAT 97
--- NOTE | 2021-04-30 08:58 | OT.INTREAT ---
Date of service: 04/30/21 Time of Service: 08:30 Occupational Therapy Notes Occupational Therapy Inpatient Treatment Note Date: 04/30/21 PRECAUTIONS: Fall, standard, DNR/DNI SUBJECTIVE: Pt was sitting in bed when OT arrived. He states that he feels that he is gaining every day. He notes that he has been using his hands more. OBJECTIVE: Therapeutic Activities [id number]: OT worked with pt for functional dynamic (B) UE movements for UE dressing and bathing. OT and pt worked in a modified situation due to IV in his (L) UE to work with. Functional crossing midline with (B) UE and dynamic flexion and extension of elbows and shoulders for increased (I) in donning his shirt. OT educated pt on use of supervisor green end department and will modify this for pt at next session. OT also discusses with pt functional grasp of tooth brush and performance of eating. OT will continue to modify. PAIN:Discomfort in his (B) shoulders and his (L) UE with ROM although this is improving it is still bothersome to pt. ASSESSMENT/PLAN: Pt would benefit from continued skilled OT services for progression of functional (I) in his ADL routines. He is limited in terms of his ROM in his UE due to pain. TREATMENT CODES/TIME: [id number], 25 minutes (08:30) KVNG Bray/[facility]
[2021-04-30] MEDS: Lidocaine 5% Patch 2 PATCH TP (10:40)
[2021-04-30] MEDS: HYDROmorphone 2 MG/ML VIAL 1 MG IVP ×2 (10:40→22:31)
[2021-04-30] MEDS: Collagenase 30 GM TUBE TP (12:02)
--- NOTE | 2021-04-30 12:07 | WOUNDCONS_ITS ---
- If Service Date Differs Date of service: 04/30/21 Time of Service: 12:07 Wound Initial Evaluation Narrative: Mr. Velasquez agreeable to weekly re-evaluation and photos. Skin pulled in 2 photos to show undermined areas and hidden slough. Left wound continues to stall with healing. Wound bed deep red, no slough present. tunneling continues from 11-12, though getting smaller measuring 3.6 today. Right ischial wound has persistent slough, Santyl applications have been done daily by nursing. No real improvement over the last week. Wound length has increased in size by 0.6 cm. Sacral/coccyx wound continues to improve. Spoke to Cement Or Concrete Finishing Supervisor today and asked him to look at Mr. Velasquez's protein and calorie intake to make sure it is optimized for wound healing. he is going to double his protein intake. Pt on marinol and ritalin for appetite stimulation per recommendation of jewish history professor. Pressure continues to be a problem. pt is on low air loss mattress, on alternating air setting. he is mostly between 20-30 degrees in the supine position. he has intense shoulder pain with side lying and is resistant to turning side to side. Not up to wheel chair or recliner that i am aware of. On IV abx to treat ostomyelitis, planned for [address] Montoya informing him of lack of progress r/t wound healing. Agreed to continue the current course of treatment x1 week to see if there are any changes. Encourage pt to turn side to side for pressure relief of Ischial Tu berosity - Wound Left Ischial Tuberosity Wound Length: 3.4 cm (tunnel 11-12 oclock 3.6 cm) Wound Width: 3.5 cm Wound Depth: 2.1 cm Wound Drainage Amount: Minimal (less than 20 cc's in 7 days) Wound Drainage Description: Sero Sanguineous Right Ischial Tuberosity Wound Length: 3.1 cm (Tunnel 12-2 oclock measuring 3.5) Wound Width: 2.5 cm Wound Depth: 2.5 cm Wound Drainage Amount: Minimal Wound Drainage Description: Clear (slimey, hard to tell d/t santly ointment) Coccyx Wound Type: Pressure Ulcer Pressure Ulcer Stage: II Wound Length: 1.5 cm Wound Width: 2 cm Wound Depth: 0.1 cm Wound Drainage Amount: None - Recomendation Recomendation:: D/C ANASEPT CLEANSER and use Integrity wound cleanser on all wounds; IV abx covering antimicrobial component @ this time. Continue all other current treatment plan and dressing orders x1 week. Physcian/Nurse Practioner Notified: Yes (Nolker)
[2021-04-30] MEDS: Acetaminophen 500 MG TAB 1000 MG PO ×2 (12:50→21:10)
[2021-04-30 15:41] VITALS: BP 111/71; PULSE 78; RESP 18; TEMP 36.4; O2SAT 96
--- NOTE | 2021-04-30 16:17 | W.NUTRFU ---
Date of service: 04/30/21 Time of Service: 13:00 Nutritional Follow up NOTE: Spoke with wound nurse to mention increasing Mr. Velasquez's Pro portions to double size (~6oz) at each meal to help with wound healing. Kitchen and nursing are aware. His intake has improved and he is currently 106.3% IBW. Daily Pro needs are 138g. Time Spent in Nutritional Counseling and Treatment: 0 m inutes face to face
[2021-04-30] MEDS: LORazepam 0.5 MG TAB PO (16:27)
[2021-04-30] MEDS: Normal Saline Flush 10 ML SYR IVP ×2 (16:29→22:31)
[2021-04-30] MEDS: diazePAM 5 MG TAB 2.5 MG PO (21:09)
[2021-04-30] MEDS: diphenhydrAMINE 25 MG CAP 50 MG PO (21:10)
[2021-04-30] MEDS: Melatonin 3 MG TAB 9 MG PO (21:10)
[2021-04-30] MEDS: Normal Saline 500 ML 30 ML IV (22:30)
[2021-05-01 00:01] VITALS: BP 115/73; PULSE 69; RESP 18; TEMP 36.4; O2SAT 93
[2021-05-01] MEDS: CIPROFLOXACIN 400 MG/200 ML BAG 200 MG IVPB ×3 (00:13→16:35)
[2021-05-01] MEDS: VANCOMYCIN/WATER (PEG) 1.25 GM/250 ML BAG IV ×2 (02:17→14:44)
[2021-05-01] MEDS: metroNIDAZOLE 500 MG/100 ML BAG 100 MG IVPB ×3 (05:10→22:25)
[2021-05-01] MEDS: Pantoprazole 40 MG TABCR PO (07:18)
[2021-05-01] MEDS: Methylphenidate 10 MG TAB PO ×2 (07:18→16:01)
[2021-05-01] MEDS: Dronabinol 2.5 MG CAP PO ×2 (07:18→16:01)
[2021-05-01 07:24] VITALS: BP 127/82; PULSE 71; RESP 17; TEMP 36.8; O2SAT 98
--- NOTE | 2021-05-01 07:49 | OT.INTREAT ---
Date of service: 05/01/21 Time of Service: 07:15 Occupational Therapy Notes Occupational Therapy Inpatient Treatment Note Date: 05/01/21 PRECAUTIONS: Fall, standard, DNR/DNI SUBJECTIVE: Pt was lying in bed when OT arrived. He states that he didn't sleep well due to his wound vac but reports that he is feeling ok otherwise. OBJECTIVE: PAIN:no specific complaints of pain, soreness in (B) UE DRESSING: OT educated and trained pt in wireless communications engineer and dressing stick with mod vc throughout .Pt will need to utilize built up handle and increased (A) but goal is for pt to be able to don and doff his shirt, brush his teeth and (A) with his ADLs. OT work with pt in modified positioning due to IV and will continue to progress pt as symptoms allow. ASSESSMENT/PLAN: OT will work with pt to make a list of adaptive equipment needed for home to start planning needs and OT will relay this to care management. OT will conitnue to introduce pt to adaptive equipment and increased (I) in his dressing routines. TREATMENT CODES/TIME: [id number], 30 minutes (07:15) Michelle Pearce OTR/[facility]
[2021-05-01] MEDS: Protein Nutritional Supplement 16 GM 1 OUNCE PACKET PO ×2 (08:38→20:46)
[2021-05-01] MEDS: Polyethylene Glycol 3350 17 GM PACKET PO (08:38)
[2021-05-01] MEDS: Multivitamin w/Minerals TAB 1 TAB PO (08:42)
[2021-05-01] MEDS: DULoxetine 30 MG CAP 60 MG PO (08:42)
[2021-05-01] MEDS: Apixaban 5 MG TAB PO ×2 (08:42→20:43)
[2021-05-01] MEDS: Baclofen 10 MG TAB PO ×3 (08:43→20:45)
[2021-05-01] MEDS: amLODIPine 5 MG TAB 10 MG PO (08:43)
[2021-05-01] MEDS: Zinc Sulfate 220 MG TAB PO (08:43)
[2021-05-01] MEDS: Ascorbic Acid 500 MG TAB PO ×2 (08:43→20:43)
[2021-05-01] MEDS: Spironolactone 25 MG TAB PO (08:43)
[2021-05-01] MEDS: Senna TAB 2 TAB PO ×2 (08:43→20:46)
[2021-05-01] MEDS: busPIRone 5 MG TAB 20 MG PO ×2 (08:43→20:43)
[2021-05-01] MEDS: Docusate Sodium 100 MG CAP PO ×3 (08:43→20:45)
[2021-05-01] MEDS: Normal Saline Flush 10 ML SYR 20 ML IVP ×2 (08:44→22:27)
[2021-05-01] MEDS: HYDROmorphone 2 MG/ML VIAL 1 MG IVP ×2 (09:45→22:25)
[2021-05-01] MEDS: Lidocaine 5% Patch 2 PATCH TP (09:46)
[2021-05-01] MEDS: Collagenase 30 GM TUBE TP (10:30)
--- NOTE | 2021-05-01 10:32 | PT.INTREAT ---
Date of service: 05/01/21 Time of Service: 11:07 PT Notes Visit Reasons: Osteomyelitis Inpatient Physical Therapy Treatment Note [facility] Date: 05/01/2021 SUBJECTIVE: Favio reports that he feels that he is able to feel more in his forearms and his R foot. Continues to report B shoulder pain. Now is very much bothered with increasing spasm in B UE, trunk, and contralateral lower extremity with passive ranging of his LEs. He states that he never has felt complete relief from all the pain pills he has tried, indicates that best pain level has been 2/10, never a 0/10. He is happy that the swelling has been fully resolved in B UE. OBJECTIVE: R foot remains swollen but is decreasing. PAIN: Patient reports relief to pain down to 2/10 only with no complate relief AROM: Patient has 100% mastery of B UE modified active exercises written on the white board in his room. He was educated today about ensuring that movement he does at each UE joint is done within pain-free range to minimize post-exercise joint and muscle pain. PROM: PROM to B LE to maintain available range in B hips, knees, and ankles. Increased spasm noted to contralateral limb and B UE compared to previous weeks. ASSESSMENT: Non-billable provision of PROM to B LE for contracture prevention with serial reassessment of PT as needed for any new skilled intervention that may be needed. PLAN: Will initiate education and training of nurse educator for B passive range of motion for bilateral lower extremities with plan of providing same treatment by therapy staff once a week along with nursing staff once a week. TREATMENT CODE/TIME: 23 minutes from 10:32 AM through 10:55 AM. No charge made.
[2021-05-01] MEDS: Acetaminophen 500 MG TAB 1000 MG PO ×2 (12:45→20:42)
[2021-05-01] MEDS: fentaNYL 25 MCG PATCH TD (14:28)
[2021-05-01] MEDS: Normal Saline Flush 10 ML SYR IVP (16:02)
[2021-05-01 19:40] VITALS: BP 117/75; PULSE 86; RESP 18; TEMP 37.1; O2SAT 98
[2021-05-01] MEDS: diphenhydrAMINE 25 MG CAP 50 MG PO (20:44)
[2021-05-01] MEDS: Melatonin 3 MG TAB 9 MG PO (20:44)
[2021-05-01] MEDS: diazePAM 5 MG TAB 2.5 MG PO (20:45)
[2021-05-01 23:47] VITALS: BP 120/77; PULSE 77; RESP 18; TEMP 36.4; O2SAT 92
[2021-05-02] MEDS: CIPROFLOXACIN 400 MG/200 ML BAG 200 MG IVPB ×3 (00:43→16:54)
[2021-05-02] MEDS: Normal Saline 500 ML 30 ML IV (00:43)
[2021-05-02] MEDS: Normal Saline Flush 10 ML SYR IVP (00:44)
[2021-05-02] MEDS: LORazepam 0.5 MG TAB PO ×3 (00:53→21:17)
[2021-05-02] MEDS: VANCOMYCIN/WATER (PEG) 1.25 GM/250 ML BAG IV ×2 (02:20→15:26)
[2021-05-02] MEDS: metroNIDAZOLE 500 MG/100 ML BAG 100 MG IVPB ×3 (06:07→21:09)
[2021-05-02 08:53] VITALS: BP 91/53; PULSE 65; RESP 17; TEMP 36.8; O2SAT 97
--- NOTE | 2021-05-02 09:02 | OT.INTREAT ---
Date of service: 05/02/21 Time of Service: 08:00 Occupational Therapy Notes Occupational Therapy Inpatient Treatment Note Date: 05/02/21 PRECAUTIONS: Fall, standard, DNR/DNI SUBJECTIVE: Pt was lying in bed when OT arrived. He states that he is doing well and is wearing his orthosis when OT arrived. OBJECTIVE: PAIN:no specific complaints of pain, soreness in (B) UE Manual Therapy [id number]: OT performed PROM to pts digits which are both (B) in slightly contracted positions. OT performed mobilization to decrease pts risk for contractures and increase functional use of pts hands and digits for ADL.IADL routines. OT then performed ROM into flexion and extension of digits. (L) was sensitive in his thumb, he does have reported sensation with his median nerve distribution. OT will monitor pts response to todays session and progress accordingly. ASSESSMENT/PLAN: OT will continue to work with pt to make a list of adaptive equipment needed for home to start planning needs and OT will relay this to care management. OT will conitnue to introduce pt to adaptive equipment and increased (I) in his dressing routines. TREATMENT CODES/TIME: [id number], 30 minutes (08:00) Michelle Pearce OTR/[facility]
[2021-05-02] MEDS: Dronabinol 2.5 MG CAP PO ×2 (09:33→15:24)
[2021-05-02] MEDS: Multivitamin w/Minerals TAB 1 TAB PO (09:34)
[2021-05-02] MEDS: Zinc Sulfate 220 MG TAB PO (09:34)
[2021-05-02 09:35] VITALS: BP 125/71; PULSE 101
[2021-05-02] MEDS: DULoxetine 30 MG CAP 60 MG PO (09:35)
[2021-05-02] MEDS: amLODIPine 5 MG TAB 10 MG PO (09:36)
[2021-05-02] MEDS: busPIRone 5 MG TAB 20 MG PO ×2 (09:38→21:11)
[2021-05-02] MEDS: Senna TAB 2 TAB PO ×2 (09:39→21:10)
[2021-05-02] MEDS: Apixaban 5 MG TAB PO ×2 (09:39→21:10)
[2021-05-02] MEDS: Pantoprazole 40 MG TABCR PO (09:40)
[2021-05-02] MEDS: Baclofen 10 MG TAB PO ×3 (09:40→21:11)
[2021-05-02] MEDS: Spironolactone 25 MG TAB PO (09:41)
[2021-05-02] MEDS: Ascorbic Acid 500 MG TAB PO ×2 (09:41→21:11)
[2021-05-02] MEDS: HYDROmorphone 4 MG TAB PO (09:42)
[2021-05-02] MEDS: Methylphenidate 10 MG TAB PO ×2 (09:43→15:24)
[2021-05-02] MEDS: Polyethylene Glycol 3350 17 GM PACKET PO (09:44)
[2021-05-02] MEDS: Protein Nutritional Supplement 16 GM 1 OUNCE PACKET PO ×2 (09:44→21:09)
[2021-05-02] MEDS: Docusate Sodium 100 MG CAP PO ×3 (09:44→21:11)
[2021-05-02] MEDS: Normal Saline Flush 10 ML SYR 20 ML IVP ×2 (09:45→21:12)
[2021-05-02] MEDS: Lidocaine 5% Patch 2 PATCH TP (09:46)
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
[2021-05-02] MEDS: Acetaminophen 500 MG TAB 1000 MG PO ×2 (11:47→21:10)
[2021-05-02] MEDS: Collagenase 30 GM TUBE TP (11:48)
[2021-05-02 13:15] LABS: CREATININE 0.7 mg/dL (0.70-1.30)
[2021-05-02 13:21] LABS: Vancomycin, Trough 16.7 ug/mL (10.0-20.0)
[2021-05-02 18:01] VITALS: BP 118/76; PULSE 68; RESP 18; TEMP 36.9; O2SAT 97
[2021-05-02] MEDS: HYDROmorphone 2 MG/ML VIAL 1 MG IVP (21:09)
[2021-05-02] MEDS: diphenhydrAMINE 25 MG CAP 50 MG PO (21:10)
[2021-05-02] MEDS: diazePAM 5 MG TAB 2.5 MG PO (21:10)
[2021-05-02] MEDS: Melatonin 3 MG TAB 9 MG PO (21:11)
[2021-05-02 23:27] VITALS: BP 118/74; PULSE 71; RESP 18; TEMP 36.8; O2SAT 97
[2021-05-03] MEDS: HYDROmorphone 4 MG TAB PO ×2 (00:25→09:41)
[2021-05-03] MEDS: LORazepam 0.5 MG TAB PO ×4 (00:25→23:54)
[2021-05-03] MEDS: CIPROFLOXACIN 400 MG/200 ML BAG 200 MG IVPB ×4 (00:25→23:49)
[2021-05-03] MEDS: VANCOMYCIN/WATER (PEG) 1.25 GM/250 ML BAG IV ×2 (03:00→14:11)
[2021-05-03] MEDS: metroNIDAZOLE 500 MG/100 ML BAG 100 MG IVPB ×3 (05:50→21:08)
[2021-05-03 08:00] VITALS: BP 139/82; PULSE 67; RESP 16; TEMP 35.7; O2SAT 98
[2021-05-03] MEDS: busPIRone 5 MG TAB 20 MG PO ×2 (08:12→21:11)
[2021-05-03] MEDS: Zinc Sulfate 220 MG TAB PO (08:13)
[2021-05-03] MEDS: amLODIPine 5 MG TAB 10 MG PO (08:13)
[2021-05-03] MEDS: Senna TAB 2 TAB PO ×2 (08:13→21:10)
[2021-05-03] MEDS: Multivitamin w/Minerals TAB 1 TAB PO (08:13)
[2021-05-03] MEDS: Dronabinol 2.5 MG CAP PO ×2 (08:14→16:27)
[2021-05-03] MEDS: DULoxetine 30 MG CAP 60 MG PO (08:14)
[2021-05-03] MEDS: Methylphenidate 10 MG TAB PO ×2 (08:14→16:27)
[2021-05-03] MEDS: Ascorbic Acid 500 MG TAB PO ×2 (08:15→21:10)
[2021-05-03] MEDS: Baclofen 10 MG TAB PO ×3 (08:15→21:09)
[2021-05-03] MEDS: Polyethylene Glycol 3350 17 GM PACKET PO (08:16)
[2021-05-03] MEDS: Pantoprazole 40 MG TABCR PO (08:16)
[2021-05-03] MEDS: Spironolactone 25 MG TAB PO (08:16)
[2021-05-03] MEDS: Docusate Sodium 100 MG CAP PO ×3 (08:16→21:10)
[2021-05-03] MEDS: Apixaban 5 MG TAB PO ×2 (08:16→21:11)
[2021-05-03] MEDS: Protein Nutritional Supplement 16 GM 1 OUNCE PACKET PO ×2 (08:16→21:08)
[2021-05-03] MEDS: Normal Saline Flush 10 ML SYR 20 ML IVP ×2 (08:17→21:11)
[2021-05-03] MEDS: Lidocaine 5% Patch 2 PATCH TP (09:42)
[2021-05-03] MEDS: Collagenase 30 GM TUBE TP (10:30)
[2021-05-03] MEDS: Normal Saline Flush 10 ML SYR IVP (11:00)
[2021-05-03] MEDS: HYDROmorphone 2 MG/ML VIAL 1 MG IVP ×2 (11:00→21:08)
[2021-05-03] MEDS: Acetaminophen 500 MG TAB 1000 MG PO ×2 (12:11→21:09)
[2021-05-03 16:21] VITALS: BP 116/71; PULSE 62; RESP 18; TEMP 37.4; O2SAT 97
[2021-05-03] MEDS: diazePAM 5 MG TAB 2.5 MG PO (21:09)
[2021-05-03] MEDS: diphenhydrAMINE 25 MG CAP 50 MG PO (21:10)
[2021-05-03] MEDS: Melatonin 3 MG TAB 9 MG PO (21:10)
[2021-05-03 23:49] VITALS: BP 123/77; PULSE 76; RESP 18; TEMP 36.6; O2SAT 98
[2021-05-04] MEDS: VANCOMYCIN/WATER (PEG) 1.25 GM/250 ML BAG IV ×2 (02:01→15:11)
[2021-05-04] MEDS: metroNIDAZOLE 500 MG/100 ML BAG 100 MG IVPB ×3 (08:15→21:12)
[2021-05-04] MEDS: CIPROFLOXACIN 400 MG/200 ML BAG 200 MG IVPB ×3 (08:15→23:36)
[2021-05-04] MEDS: Protein Nutritional Supplement 16 GM 1 OUNCE PACKET PO ×2 (08:19→21:09)
[2021-05-04] MEDS: DULoxetine 30 MG CAP 60 MG PO (08:19)
[2021-05-04] MEDS: Polyethylene Glycol 3350 17 GM PACKET PO (08:19)
[2021-05-04] MEDS: Ascorbic Acid 500 MG TAB PO ×2 (08:20→21:11)
[2021-05-04] MEDS: Methylphenidate 10 MG TAB PO (08:20)
[2021-05-04] MEDS: amLODIPine 5 MG TAB 10 MG PO (08:20)
[2021-05-04] MEDS: Docusate Sodium 100 MG CAP PO ×3 (08:20→21:11)
[2021-05-04] MEDS: Zinc Sulfate 220 MG TAB PO (08:20)
[2021-05-04] MEDS: Dronabinol 2.5 MG CAP PO (08:20)
[2021-05-04] MEDS: Multivitamin w/Minerals TAB 1 TAB PO (08:20)
[2021-05-04] MEDS: busPIRone 5 MG TAB 20 MG PO ×2 (08:20→21:10)
[2021-05-04] MEDS: Pantoprazole 40 MG TABCR PO (08:21)
[2021-05-04] MEDS: Senna TAB 2 TAB PO ×2 (08:21→21:09)
[2021-05-04] MEDS: Baclofen 10 MG TAB PO ×3 (08:22→21:11)
[2021-05-04] MEDS: Normal Saline Flush 10 ML SYR 20 ML IVP ×2 (08:22→21:11)
[2021-05-04] MEDS: Apixaban 5 MG TAB PO ×2 (08:22→21:10)
[2021-05-04] MEDS: Spironolactone 25 MG TAB PO (08:22)
[2021-05-04 09:15] VITALS: BP 137/87; PULSE 70; RESP 18; TEMP 36.6; O2SAT 97
[2021-05-04] MEDS: Acetaminophen 500 MG TAB 1000 MG PO ×2 (12:06→21:10)
[2021-05-04] MEDS: Lidocaine 5% Patch 2 PATCH TP (12:06)
[2021-05-04] MEDS: fentaNYL 25 MCG PATCH TD (14:56)
[2021-05-04] MEDS: Gabapentin 100 MG CAP PO ×2 (14:57→21:10)
[2021-05-04] MEDS: Normal Saline 500 ML 30 ML IV (14:59)
[2021-05-04 16:13] VITALS: BP 161/88; PULSE 74; RESP 18; TEMP 37.2; O2SAT 97
[2021-05-04] MEDS: Collagenase 30 GM TUBE TP (17:09)
[2021-05-04] MEDS: HYDROmorphone 2 MG/ML VIAL 1 MG IVP ×2 (18:00→21:09)
[2021-05-04] MEDS: diazePAM 5 MG TAB 2.5 MG PO (21:09)
[2021-05-04] MEDS: diphenhydrAMINE 25 MG CAP 50 MG PO (21:10)
[2021-05-04] MEDS: LORazepam 0.5 MG TAB PO ×2 (21:10→23:36)
[2021-05-04] MEDS: Melatonin 3 MG TAB 9 MG PO (21:10)
[2021-05-04 23:00] VITALS: BP 95/58; PULSE 67; RESP 20; TEMP 36.8; O2SAT 96
[2021-05-05] MEDS: VANCOMYCIN/WATER (PEG) 1.25 GM/250 ML BAG IV ×2 (01:53→15:25)
[2021-05-05] MEDS: metroNIDAZOLE 500 MG/100 ML BAG 100 MG IVPB ×3 (05:58→21:39)
[2021-05-05] MEDS: CIPROFLOXACIN 400 MG/200 ML BAG 200 MG IVPB ×3 (07:22→23:24)
[2021-05-05] MEDS: Pantoprazole 40 MG TABCR PO (07:23)
[2021-05-05] MEDS: Dronabinol 2.5 MG CAP PO ×2 (07:23→11:54)
[2021-05-05] MEDS: Normal Saline Flush 10 ML SYR 20 ML IVP ×2 (07:23→20:33)
[2021-05-05] MEDS: Methylphenidate 10 MG TAB PO ×2 (07:23→11:54)
[2021-05-05 07:27] VITALS: BP 119/71; PULSE 74; RESP 16; TEMP 36.3; O2SAT 97
[2021-05-05] MEDS: Protein Nutritional Supplement 16 GM 1 OUNCE PACKET PO ×2 (08:55→20:30)
[2021-05-05] MEDS: amLODIPine 5 MG TAB 10 MG PO (08:55)
[2021-05-05] MEDS: Docusate Sodium 100 MG CAP PO ×3 (08:55→20:31)
[2021-05-05] MEDS: Gabapentin 100 MG CAP PO (08:55)
[2021-05-05] MEDS: Polyethylene Glycol 3350 17 GM PACKET PO (08:55)
[2021-05-05] MEDS: Spironolactone 25 MG TAB PO (08:55)
[2021-05-05] MEDS: DULoxetine 30 MG CAP 60 MG PO (08:55)
[2021-05-05] MEDS: Zinc Sulfate 220 MG TAB PO (08:55)
[2021-05-05] MEDS: Multivitamin w/Minerals TAB 1 TAB PO (08:56)
[2021-05-05] MEDS: Senna TAB 2 TAB PO ×2 (08:56→20:31)
[2021-05-05] MEDS: Ascorbic Acid 500 MG TAB PO ×2 (08:56→20:31)
[2021-05-05] MEDS: Baclofen 10 MG TAB PO ×3 (08:56→20:31)
[2021-05-05] MEDS: Apixaban 5 MG TAB PO ×2 (08:56→20:31)
[2021-05-05] MEDS: busPIRone 5 MG TAB 20 MG PO ×2 (11:06→20:32)
[2021-05-05] MEDS: Lidocaine 5% Patch 2 PATCH TP (11:06)
[2021-05-05] MEDS: Acetaminophen 500 MG TAB 1000 MG PO ×2 (11:06→20:32)
--- NOTE | 2021-05-05 11:36 | W.PM.PROGNOT ---
Date of Service Date of service: 05/05/21 Time of Service: 11:37 Assessment and Plan Assessment and plan (1) Acute osteomyelitis of sacrum: Start date: 05/05/21 Start time: 11:48 Status: Acute Assessment and plan: Continue vanco x 6 weeks doing well. Unable to visualize wound as wound vac in place, He also will be on cipro for 6 weeks for osteo. Dilaudid for drsg changes IV or PO per patient discretion he will likely have acute on chronic osteo of sacrum requiring doses of vanco per previous conversation with ID. (2) Major depressive disorder: Start date: 05/05/21 Start time: 11:55 Status: Chronic Assessment and plan: Better spirits today, continue buspar and cymbalta, he states he has been feeling better Qualifiers: Major depression recurrence: single episode Active/Remission status: currently active Major depression episode severity: moderate Qualified Code(s): F32.1 - Major depressive disorder, single episode, moderate (3) Quadriplegia: Start date: 05/05/21 Start time: 11:56 Status: Chronic Assessment and plan: cont. P.T. to work with patient He continues to work on upper body though he states that he does have pain and numbness to upper body, increased gabapentin Increased dilaudid to 3 mg BID prn while fentanyl patch has time to work with goal of gabapentin and fentanyl controlling his pain so that he can wean off dilaudid. (4) DVT prophylaxis: Start date: 05/05/21 Start time: 11:59 Status: Chronic Assessment and plan: On apixaban for RLE DVT (5) Constipation: Start date: 05/05/21 Start time: 11:59 Status: Chronic Assessment and plan: Continue bowel regimen. Ostomy producing soft stool. Continue regimen discussed with Dr. Murillo Qualifiers: Constipation type: other constipation type Qualified Code(s): K59.09 - Other constipation Subjective Subjective Patient reports: feels better Interval history since last seen: Favio appears in better spirits today. He states he has not cried in 3 days which he states is good for him. He is starting to have sensation to his lower extremities, mainly in his feet. He can feel when being touched in certain areas. He was able to tell me when he felt me touching the top of his left foot and right foot, right combs, left combs, and various areas of foot. He can not move areas but he is gaining sensation. He is suppose to see Dr. Hudson Miller at [facility] for surgery on his spine. He does not have a date or time set up yet he was hoping by next month. He still complains of pain to his arms along with numbness and wants to be able to do his arm exercises. Increased his gabapentin and dilaudid, until his fentanyl patch takes further effect. His dilaudid is only prn. Between the gabapentin and fentanyl we should be able to wean the dialuadid to only at HS po soon. He denies CP, SOB, N/V/D Exam Narrative Exam Narrative: Micha is alert and conversant w/ me. He is in good spirits today. He states he has not cried in 3 days. He is laughing and smiling. Lungs are clear heart is regular Abdomen soft and nondistended w/ ostomy draining light brown semiformed stool Decubitus wounds have wound vacuum in place., Extremities with edema to right lower ankle and foot. Starting to have sensation to feet bilaterally. Unable to move Lower extremities can not feel sensation past combs Objective Last Vital Signs Temp 36.3 C L 05/05/21 07:27 Pulse 74 05/05/21 07:27 Resp 16 05/05/21 07:27 BP 119/71 05/05/21 07:27 Pulse Ox 97 05/05/21 07:27
--- NOTE | 2021-05-05 12:00 | NUR.NOTE ---
reviewed 3 mg IVP dilaudid dosing with fentanyl patch- Eliane Tolliver, LINE WELDER confirmed order. Nursing Note:
[2021-05-05 13:53] LABS: Anion Gap 8.8 mmol/L (3-11); BUN 20 mg/dL (7-18); CO2 24.2 mmol/L (21.0-32.0); CREATININE 0.7 mg/dL (0.70-1.30); Calcium 9.9 mg/dL (8.5-10.1); Chloride 106 mmol/L (98-107); Glucose 120 mg/dL (74-106); Magnesium 1.4 mg/dL (1.8-2.4); Potassium 3.9 mmol/L (3.5-5.1); Sodium 139 mmol/L (136-145)
[2021-05-05 13:59] LABS: Vancomycin, Trough 16.5 ug/mL (10.0-20.0)
[2021-05-05 14:00] LABS: Abs Immature Grans 0.04 10^3/uL (0.0-0.06); Absolute Basophil Count 0.05 10^3/uL (0.0-0.2); Absolute Eosinophil Count 0.31 10^3/uL (0.0-0.7); Absolute Lymphocyte Count 1.26 10^3/uL (1.2-3.4); Absolute Monocyte Count 0.65 10^3/uL (0.1-0.8); Absolute Neutrophil Count 5.09 10^3/uL (1.2-6.7); Basophils % 0.7; Eosinophils % 4.2; HCT 34.9 % (40.0-50.0); HGB 11.2 g/dL (13.5-17.5); Immature Grans % 0.5; MCH 27.9 pg (27.0-33.0); MCHC 32.1 % (32.0-36.0); MCV 86.8 fL (80-95); MPV 10.9 fL (8.0-11.0); Monocytes % 8.8; Neutrophils % 68.8; Nucleated RBC 0 %; Platelet Count 183 10^3/uL (130-400); RBC 4.02 10^6/uL (4.36-5.78); RDW 17.1 % (11.8-14.1); RDW-SD 54.8 fL
[2021-05-05] MEDS: Gabapentin 100 MG CAP 300 MG PO (14:05)
[2021-05-05] MEDS: Collagenase 30 GM TUBE TP (14:06)
[2021-05-05] MEDS: HYDROmorphone 4 MG TAB PO (14:08)
[2021-05-05] MEDS: MAGNESIUM SULFATE 4 GM/100 ML BAG IVPB (15:24)
[2021-05-05] MEDS: Normal Saline Flush 10 ML SYR IVP ×2 (15:26→21:38)
[2021-05-05] MEDS: Magnesium Oxide 400 MG TAB 800 MG PO (15:26)
[2021-05-05 15:27] LABS: Procalcitonin < 0.1 ng/mL
[2021-05-05 15:29] VITALS: BP 131/83; PULSE 78; RESP 18; TEMP 36.7; O2SAT 97
[2021-05-05] MEDS: Melatonin 3 MG TAB 9 MG PO (20:30)
[2021-05-05] MEDS: diazePAM 5 MG TAB 2.5 MG PO (20:31)
[2021-05-05] MEDS: Gabapentin 300 MG CAP PO (20:31)
[2021-05-05] MEDS: diphenhydrAMINE 25 MG CAP 50 MG PO (20:32)
[2021-05-05] MEDS: HYDROmorphone 2 MG/ML VIAL 3 MG IVP (21:37)
[2021-05-05] MEDS: LORazepam 0.5 MG TAB PO (23:24)
[2021-05-05 23:32] VITALS: BP 104/65; PULSE 65; RESP 20; TEMP 36.5; O2SAT 96
[2021-05-06] MEDS: Normal Saline Flush 10 ML SYR IVP (02:50)
[2021-05-06] MEDS: VANCOMYCIN/WATER (PEG) 1.25 GM/250 ML BAG IV ×2 (02:50→13:25)
[2021-05-06] MEDS: HYDROmorphone 4 MG TAB PO (02:50)
[2021-05-06] MEDS: Acetaminophen 500 MG TAB 1000 MG PO ×3 (05:40→20:22)
[2021-05-06] MEDS: metroNIDAZOLE 500 MG/100 ML BAG 100 MG IVPB ×3 (05:41→23:08)
[2021-05-06 07:22] VITALS: BP 106/68; PULSE 70; RESP 17; TEMP 36.6; O2SAT 99
[2021-05-06 07:42] LABS: Magnesium 1.9 mg/dL (1.8-2.4)
[2021-05-06] MEDS: DULoxetine 30 MG CAP 60 MG PO (08:03)
[2021-05-06] MEDS: busPIRone 5 MG TAB 20 MG PO ×2 (08:03→20:21)
[2021-05-06] MEDS: Senna TAB 2 TAB PO ×2 (08:03→20:22)
[2021-05-06] MEDS: Multivitamin w/Minerals TAB 1 TAB PO (08:03)
[2021-05-06] MEDS: Apixaban 5 MG TAB PO ×2 (08:03→20:23)
[2021-05-06] MEDS: Zinc Sulfate 220 MG TAB PO (08:03)
[2021-05-06] MEDS: Polyethylene Glycol 3350 17 GM PACKET PO (08:03)
[2021-05-06] MEDS: CIPROFLOXACIN 400 MG/200 ML BAG 200 MG IVPB ×3 (08:03→23:08)
[2021-05-06] MEDS: Protein Nutritional Supplement 16 GM 1 OUNCE PACKET PO ×2 (08:03→20:21)
[2021-05-06] MEDS: Spironolactone 25 MG TAB PO (08:04)
[2021-05-06] MEDS: Docusate Sodium 100 MG CAP PO ×3 (08:04→20:22)
[2021-05-06] MEDS: amLODIPine 5 MG TAB 10 MG PO (08:04)
[2021-05-06] MEDS: Gabapentin 300 MG CAP PO ×3 (08:04→20:22)
[2021-05-06] MEDS: Ascorbic Acid 500 MG TAB PO ×2 (08:04→20:22)
[2021-05-06] MEDS: Pantoprazole 40 MG TABCR PO (08:04)
[2021-05-06] MEDS: Baclofen 10 MG TAB PO ×3 (08:04→20:23)
[2021-05-06] MEDS: Dronabinol 2.5 MG CAP PO ×2 (08:04→11:34)
[2021-05-06] MEDS: Magnesium Chloride 64 MG TABCR PO (08:04)
[2021-05-06] MEDS: Normal Saline Flush 10 ML SYR 20 ML IVP ×2 (08:05→20:23)
[2021-05-06] MEDS: Methylphenidate 10 MG TAB PO ×2 (08:08→11:34)
[2021-05-06] MEDS: Lidocaine 5% Patch 2 PATCH TP (10:25)
[2021-05-06] MEDS: Collagenase 30 GM TUBE TP (13:26)
[2021-05-06] MEDS: HYDROmorphone 2 MG/ML VIAL 3 MG IVP ×2 (15:12→23:07)
[2021-05-06] MEDS: LORazepam 0.5 MG TAB PO ×2 (15:12→23:07)
[2021-05-06 15:13] VITALS: BP 124/72; PULSE 73; RESP 17; TEMP 36.5; O2SAT 98
[2021-05-06] MEDS: diazePAM 5 MG TAB 2.5 MG PO (20:22)
[2021-05-06] MEDS: diphenhydrAMINE 25 MG CAP 50 MG PO (20:23)
[2021-05-06] MEDS: Melatonin 3 MG TAB 9 MG PO (20:23)
[2021-05-06 23:48] VITALS: BP 116/71; PULSE 61; RESP 20; TEMP 36.5; O2SAT 98
[2021-05-07] MEDS: VANCOMYCIN/WATER (PEG) 1.25 GM/250 ML BAG IV ×2 (02:10→14:56)
[2021-05-07] MEDS: Acetaminophen 500 MG TAB 1000 MG PO ×3 (05:11→19:45)
[2021-05-07] MEDS: metroNIDAZOLE 500 MG/100 ML BAG 100 MG IVPB ×3 (06:41→21:54)
[2021-05-07 07:20] VITALS: BP 131/83; PULSE 58; RESP 19; TEMP 37; O2SAT 96
[2021-05-07] MEDS: Methylphenidate 10 MG TAB PO ×2 (07:24→11:00)
[2021-05-07] MEDS: CIPROFLOXACIN 400 MG/200 ML BAG 200 MG IVPB ×3 (07:24→23:56)
[2021-05-07] MEDS: Dronabinol 2.5 MG CAP PO ×2 (07:24→11:00)
[2021-05-07] MEDS: Pantoprazole 40 MG TABCR PO (07:24)
--- NOTE | 2021-05-07 08:42 | NT_ITS ---
Date of service: 05/07/21 Time of Service: 08:42 Occupational Therapy Notes 05/07/21 OT attempted to see pt who was sleeping when OT arrived. OT will resume services tomorrow. KVNG [facility]
[2021-05-07] MEDS: HYDROmorphone 2 MG/ML VIAL 3 MG IVP (08:59)
[2021-05-07] MEDS: Spironolactone 25 MG TAB PO (09:00)
[2021-05-07] MEDS: Magnesium Chloride 64 MG TABCR PO (09:00)
[2021-05-07] MEDS: Gabapentin 300 MG CAP PO ×3 (09:00→19:46)
[2021-05-07] MEDS: Polyethylene Glycol 3350 17 GM PACKET PO (09:00)
[2021-05-07] MEDS: Apixaban 5 MG TAB PO ×2 (09:00→19:46)
[2021-05-07] MEDS: Protein Nutritional Supplement 16 GM 1 OUNCE PACKET PO ×2 (09:00→19:44)
[2021-05-07] MEDS: Docusate Sodium 100 MG CAP PO ×3 (09:00→19:45)
[2021-05-07] MEDS: Multivitamin w/Minerals TAB 1 TAB PO (09:00)
[2021-05-07] MEDS: Senna TAB 2 TAB PO ×2 (09:00→19:45)
[2021-05-07] MEDS: amLODIPine 5 MG TAB 10 MG PO (09:00)
[2021-05-07] MEDS: LORazepam 0.5 MG TAB PO ×2 (09:01→21:53)
[2021-05-07] MEDS: Ascorbic Acid 500 MG TAB PO ×2 (09:01→19:46)
[2021-05-07] MEDS: Baclofen 10 MG TAB PO ×3 (09:01→19:45)
[2021-05-07] MEDS: Zinc Sulfate 220 MG TAB PO (09:01)
[2021-05-07] MEDS: DULoxetine 30 MG CAP 60 MG PO (09:01)
[2021-05-07] MEDS: Lidocaine 5% Patch 2 PATCH TP (09:32)
[2021-05-07] MEDS: Normal Saline Flush 10 ML SYR 20 ML IVP ×2 (09:33→19:46)
[2021-05-07] MEDS: busPIRone 5 MG TAB 20 MG PO ×2 (11:00→19:46)
[2021-05-07] MEDS: fentaNYL 50 MCG PATCH TD (11:27)
--- NOTE | 2021-05-07 11:35 | WOUNDCONS_ITS ---
- If Service Date Differs Date of service: 05/07/21 Time of Service: 11:35 Wound Initial Evaluation Narrative: Mr. Velasquez seen for weekly re-evaluation and photos. Gives verbal consent. Wounds have decreased in size and improved in overall appearance since last week. See photos below for comparison. Per Favio he is eating well. Per documentation he has been eating 75-100% of his meals. Protein on his meal trays was doubled last week, this is possibly a factor in wound improvement. Pt's calorie and protein demand high d/t wounds. Request nutrition continues to follow Pt. [employer] bed continues to be rounded on each shift. No issues to report. Alternating air setting is on @ this time. Wound care nurses contacted [employer] customer support to ensure we are maximizing use of the bed and that the appropriate settings are in place for Pt and his specific wounds. Laura Obregon spoke with Amelie Fajardo, clinical specialist from [employer] and her recommendation were in line with what we have been doing with the bed setting. Keep on alternating air setting. A new skin IQ cover was delivered and replaced this past weekend. Right Ischial wound has had an adequate amount of slough debrieded enzymatically with Santyl, about 20% white adherent slough remains, less dense than before. Appropriate @ this time to discontinue santly and restart wound vac. Left Ischial wound appears healthier, with better red color on wound base tissue. No slough is seen in wound bed. Smaller than 7 days ago. Continue wound vac @ this time. Coccyx/sacral wound is healed @ this time. Small piece of dry skin in center, no open areas noted. skin is pink and blanchable. Continue with Sacral Mepilex for protection. Change Q3days and PRN. Right lateral pinky toe has a DTI present. not open. Pt has old Podo boots that are too tight for him d/t ankle and pedal edema. recommend skin prep and offloading to area @ this time. TEDS removed. - Wound Left Ischial Tuberosity Wound Type: Pressure Ulcer Pressure Ulcer Stage: IV Wound General Appearance: Reddened, Unapproximated, Tendon Visible, Muscle Visible, Tunneling Wound Bed Greatest Portion: Red (Granulation) Percent of Wound Bed Granulated/Red: 100 Percent of Wound Bed Slough/Yellow: 0 Wound Length: 2.5 cm Wound Width: 3.5 cm Wound Depth: 2.2 cm (3.6 cm tunnel from 11-12) Wound Drainage Amount: Minimal (serosang in container. about 40 cc's over 7 days. container changed) Right Ischial Tuberosity Wound Type: Pressure Ulcer Pressure Ulcer Stage: IV Wound General Appearance: Bleeding, Unapproximated, Muscle Visible, Tunneling Wound Bed Greatest Portion: Red (Granulation) Wound Bed Lesser Portion: Yellow (Slough) (improved since last assessment. about 20% reminaing, wound vac initiation appropriate at this time.) Wound Surrounding Tissue Appearance: Macerated (wound edge slightly macerated) Percent of Wound Bed Granulated/Red: 80 Percent of Wound Bed Slough/Yellow: 20 (slough goes up into tunnel) Wound Length: 2.8 cm Wound Width: 2.8 cm Wound Depth: 2.8 cm (3.2 cm tunnel from 12-2 o'clock) Wound Drainage Description: No drainage - Recomendation Recomendation:: Bilateral ischial tuberosity--cleanse wounds with INTEGRITY cleanser and gauze. Pat serge wound dry. skin prep to periwound. Add promogran rosa (1 package to each wound ) to wound bed and into tunnels. Place small piece of WHITE FOAM into tunnel on each wound. Place black foam into wound, ensure some contact with white foam. Apply Vac. Wound vac changes on , , SAT- Sacral mepilex to sacrum/coccyx for protection. Change Q3 Days and PRN. Skin prep to RIGHT LATERAL PINKY TOE DTI. Offload area. Physcian/Nurse Practioner Notified: Yes (Dr. Murillo) Referrals: Dietary (Nutrition please keep following Pt.)
[2021-05-07] MEDS: HYDROmorphone 2 MG/ML VIAL IVP (11:44)
--- NOTE | 2021-05-07 13:39 | W.NUTRFU ---
Date of service: 05/07/21 Time of Service: 13:39 Nutritional Follow up NOTE: Met with Favio today to review most recent labs indicating adequate protein stores for optimal wound healing (04/26/21 pre- albumin 26, up from 17 mg (03/30/21). Continues on regular meal plan with excellent intake. Encouraged that he continue to consume 100% of meals and supplements. 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 Time Spent in Nutritional Counseling and Treatment: 15 min
[2021-05-07 15:10] VITALS: BP 125/72; PULSE 70; RESP 17; TEMP 36.2; O2SAT 98
[2021-05-07] MEDS: diphenhydrAMINE 25 MG CAP 50 MG PO (19:44)
[2021-05-07] MEDS: diazePAM 5 MG TAB 2.5 MG PO (19:46)
[2021-05-07] MEDS: HYDROmorphone 2 MG/ML VIAL 1.5 MG IVP (21:52)
[2021-05-07] MEDS: Melatonin 3 MG TAB 9 MG PO (21:53)
[2021-05-07 22:39] VITALS: BP 111/68; PULSE 67; RESP 18; TEMP 36.1; O2SAT 96
[2021-05-08] MEDS: VANCOMYCIN/WATER (PEG) 1.25 GM/250 ML BAG IV ×2 (01:25→14:40)
[2021-05-08] MEDS: metroNIDAZOLE 500 MG/100 ML BAG 100 MG IVPB ×3 (05:49→21:56)
[2021-05-08] MEDS: Acetaminophen 500 MG TAB 1000 MG PO ×3 (05:49→21:50)
[2021-05-08] MEDS: Protein Nutritional Supplement 16 GM 1 OUNCE PACKET PO ×2 (07:56→21:49)
[2021-05-08] MEDS: Polyethylene Glycol 3350 17 GM PACKET PO (07:56)
[2021-05-08] MEDS: Normal Saline Flush 10 ML SYR 20 ML IVP ×2 (07:56→21:55)
[2021-05-08] MEDS: Senna TAB 2 TAB PO ×2 (07:56→21:52)
[2021-05-08] MEDS: Normal Saline Flush 10 ML SYR IVP ×3 (07:56→21:57)
[2021-05-08] MEDS: Methylphenidate 10 MG TAB PO ×2 (07:57→10:43)
[2021-05-08] MEDS: Dronabinol 2.5 MG CAP PO ×2 (07:57→10:43)
[2021-05-08] MEDS: DULoxetine 30 MG CAP 90 MG PO (07:57)
[2021-05-08] MEDS: Ascorbic Acid 500 MG TAB PO ×2 (07:57→21:52)
[2021-05-08] MEDS: busPIRone 5 MG TAB 20 MG PO ×2 (07:57→21:52)
[2021-05-08] MEDS: Pantoprazole 40 MG TABCR PO (07:57)
[2021-05-08] MEDS: Magnesium Chloride 64 MG TABCR PO (07:57)
[2021-05-08] MEDS: Gabapentin 300 MG CAP PO ×3 (07:58→21:51)
[2021-05-08] MEDS: amLODIPine 5 MG TAB 10 MG PO (07:58)
[2021-05-08] MEDS: Zinc Sulfate 220 MG TAB PO (07:58)
[2021-05-08] MEDS: Spironolactone 25 MG TAB PO (07:58)
[2021-05-08] MEDS: Baclofen 10 MG TAB PO ×3 (07:58→21:52)
[2021-05-08] MEDS: CIPROFLOXACIN 400 MG/200 ML BAG 200 MG IVPB ×3 (07:58→23:53)
[2021-05-08] MEDS: Docusate Sodium 100 MG CAP PO ×3 (07:58→21:52)
[2021-05-08] MEDS: Multivitamin w/Minerals TAB 1 TAB PO (07:58)
[2021-05-08] MEDS: Apixaban 5 MG TAB PO ×2 (07:58→21:51)
[2021-05-08 07:59] VITALS: BP 126/77; PULSE 63; RESP 13; TEMP 36.8; O2SAT 98
--- NOTE | 2021-05-08 08:58 | OT.INTREAT ---
Date of service: 05/08/21 Time of Service: 08:35 Occupational Therapy Notes Occupational Therapy Inpatient Treatment Note Date: 05/08/21 PRECAUTIONS: Fall, standard, DNR/DNI SUBJECTIVE: Pt was eating breakfast with max (A) from [employer] when OT arrived. He states that he is doing well, still having a hard time sleeping but doing better than he was. OBJECTIVE: PAIN:c/o discomfort in his (B) elbows Self Care Training [id number]: OT and pt went over eventual home set up at [facility] and care/self care training in the home set up as well as adaptive equipment needs. OT per discussion with pt recommends the following DME/adaptive equipment to increase pts functional (I) in his ADL/IADL routines includin. Hospital bed with alternating pressure for increased care of pts wounds and medically necessary due to pts decreased functional mobility and high risk of wounds. 2. A christa lift for transportation to and from bed to wheelchair etc.. to increase pts safety and pressure relief on his body during transfers. 3. His electric wheelchair transferred from [facility]- pt reports that he has an electric wheelchair at the facility and they are waiting for him to return home to get this delivered. 4. [employer] cuff- this adaptive equipment will be utilized to maximize pts functional (I) in his ADL/IADL routines but supporting his decreased hand function and control 5. OT recommends that pt has HH OT/PT as well as a caregiver 24 hours/day given his high needs and inability to cook, clean and take care of his toileting routines. Pt will also need (A) with functional mobility and will be unable to perform this without (A). ASSESSMENT/PLAN: Plan is to continued to assess pts functional (I) and needs. TREATMENT CODES/TIME: [id number], 15 minutes (08:35) Michelle Pearce OTR/[facility]
[2021-05-08 09:20] VITALS: BP 126/77; PULSE 62; RESP 18; TEMP 36.8; O2SAT 99
[2021-05-08] MEDS: Lidocaine 5% Patch 2 PATCH TP (10:43)
[2021-05-08] MEDS: HYDROmorphone 2 MG/ML VIAL IVP (10:55)
[2021-05-08] MEDS: HYDROmorphone 4 MG TAB PO (11:49)
[2021-05-08 15:43] VITALS: BP 108/66; PULSE 67; RESP 18; TEMP 36.4; O2SAT 97
[2021-05-08] MEDS: diazePAM 5 MG TAB 2.5 MG PO (21:50)
[2021-05-08] MEDS: LORazepam 0.5 MG TAB PO (21:51)
[2021-05-08] MEDS: diphenhydrAMINE 25 MG CAP 50 MG PO (21:52)
[2021-05-08] MEDS: Melatonin 3 MG TAB 9 MG PO (21:52)
[2021-05-08] MEDS: HYDROmorphone 2 MG/ML VIAL 1.5 MG IVP (21:54)
[2021-05-08 22:19] VITALS: BP 147/83; PULSE 70; RESP 18; TEMP 36.9; O2SAT 97
[2021-05-09] MEDS: VANCOMYCIN/WATER (PEG) 1.25 GM/250 ML BAG IV ×2 (02:03→14:53)
[2021-05-09] MEDS: metroNIDAZOLE 500 MG/100 ML BAG 100 MG IVPB ×3 (05:58→21:27)
[2021-05-09] MEDS: Polyethylene Glycol 3350 17 GM PACKET PO (08:28)
[2021-05-09] MEDS: Normal Saline Flush 10 ML SYR 20 ML IVP ×2 (08:28→21:28)
[2021-05-09] MEDS: Protein Nutritional Supplement 16 GM 1 OUNCE PACKET PO ×2 (08:28→21:19)
[2021-05-09] MEDS: Magnesium Chloride 64 MG TABCR PO (08:29)
[2021-05-09] MEDS: Normal Saline Flush 10 ML SYR IVP ×2 (08:29→21:22)
[2021-05-09 08:30] VITALS: BP 133/87; PULSE 72; RESP 14; TEMP 37; O2SAT 97
[2021-05-09] MEDS: busPIRone 5 MG TAB 20 MG PO ×2 (08:30→21:26)
[2021-05-09] MEDS: Ascorbic Acid 500 MG TAB PO ×2 (08:30→21:24)
[2021-05-09] MEDS: DULoxetine 30 MG CAP 90 MG PO (08:30)
[2021-05-09] MEDS: Senna TAB 2 TAB PO ×2 (08:30→21:26)
[2021-05-09] MEDS: Dronabinol 2.5 MG CAP PO ×2 (08:30→11:54)
[2021-05-09] MEDS: Gabapentin 300 MG CAP PO ×3 (08:30→21:24)
[2021-05-09] MEDS: Docusate Sodium 100 MG CAP PO ×3 (08:30→21:25)
[2021-05-09] MEDS: Pantoprazole 40 MG TABCR PO (08:30)
[2021-05-09] MEDS: CIPROFLOXACIN 400 MG/200 ML BAG 200 MG IVPB ×3 (08:31→23:49)
[2021-05-09] MEDS: Zinc Sulfate 220 MG TAB PO (08:31)
[2021-05-09] MEDS: Baclofen 10 MG TAB PO ×3 (08:31→21:24)
[2021-05-09] MEDS: Apixaban 5 MG TAB PO ×2 (08:31→21:23)
[2021-05-09] MEDS: amLODIPine 5 MG TAB 10 MG PO (08:31)
[2021-05-09] MEDS: Methylphenidate 10 MG TAB PO ×2 (08:31→11:54)
[2021-05-09] MEDS: Spironolactone 25 MG TAB PO (08:31)
[2021-05-09] MEDS: Multivitamin w/Minerals TAB 1 TAB PO (08:31)
[2021-05-09] MEDS: LORazepam 0.5 MG TAB PO ×4 (08:32→23:54)
[2021-05-09] MEDS: HYDROmorphone 2 MG/ML VIAL IVP (10:08)
[2021-05-09] MEDS: Lidocaine 5% Patch 2 PATCH TP (10:08)
--- NOTE | 2021-05-09 10:40 | OTTR_ITS ---
Date of service: 05/09/21 Time of Service: 10:05 Occupational Therapy Notes Occupational Therapy Inpatient Treatment Note Date: 05/09/21 PRECAUTIONS: Fall, standard, DNR/DNI SUBJECTIVE: Pt was lying in bed when OT arrived. He states that he is excited to be making progress towards post hospital transition. He notes that he has an appt scheduled in [place] for a consult for his (B) UE. OBJECTIVE: PAIN:no specific complaints of pain, soreness in (B) UE more in his shoulders. RN did provide pt with pain medication and is aware. Manual Therapy [id number]: OT performed PROM to pts digits which are both (B) in slightly contracted positions with notable sweating in palms, pt has not worn his braces but would like to today. OT performed mobilization to decrease pts risk for contractures and increase functional use of pts hands and digits for ADL.IADL routines. OT then performed ROM into flexion and extension of digits. (L) was sensitive in his thumb, he does have reported sensation with his median nerve distribution again today and OT performs passive median nerve glides. OT will monitor pts response to todays session and progress accordingly. TREATMENT CODES/TIME: [id number], 25 minutes (10:05) Michelle Pearce OTR[facility]
[2021-05-09] MEDS: Acetaminophen 500 MG TAB 1000 MG PO ×2 (11:53→21:26)
[2021-05-09] MEDS: HYDROmorphone 4 MG TAB PO (14:52)
[2021-05-09 16:13] VITALS: BP 107/65; PULSE 66; RESP 18; TEMP 36.7; O2SAT 97
--- NOTE | 2021-05-09 16:14 | PT.INNT ---
Date of service: 05/09/21 Time of Service: 16:14 PT Notes Visit Reasons: Osteomyelitis Caregiver Nicki was educated and trained in performing passive range of motion to B LE to maintain hip/knee/ankle range of motion with good result. Will see patient/caregiver for continued training/guidance as needed. Spent 24 minutes of non-billable time with patient and caregiver for this training. Thank you for the opportunity to participate in the care of this patient. Kathy Solorio PT, DPT, CLT [facility] [place], [place]
--- NOTE | 2021-05-09 16:38 | PDOC.CMPRO ---
- If Service Date Differs Date of service: 05/09/21 Time of Service: 16:38 Care Management Progress Note Favio continues to slowly improve. He was able to have the wound vac placed on the wound on his right ischial tuberosity again as the slough has decreased. Favio has an appointment scheduled in June with [facility] for an evaluation for possible surgery. He will also have an EMG at that time. A referral was also made to [facility] to evaluate his wounds, but no response has been received yet. P: Favio continues to await senior living medicaid which will be necessary before he can seek placement. He has also applied for rent-controlled housing and has been told he is on the waiting list. Favio has an appointment with the [facility] at [facility] on June 18, 2021 at 1pm, coordinated by [facility]. Transport will be by ambulance, also coordinated by [facility].
[2021-05-09] MEDS: HYDROmorphone 2 MG/ML VIAL 1.5 MG IVP (21:20)
[2021-05-09] MEDS: diazePAM 5 MG TAB 2.5 MG PO (21:22)
[2021-05-09] MEDS: diphenhydrAMINE 25 MG CAP 50 MG PO (21:24)
[2021-05-09] MEDS: Melatonin 3 MG TAB 9 MG PO (21:26)
[2021-05-09 22:01] VITALS: BP 105/67; PULSE 69; RESP 16; TEMP 36.6; O2SAT 99
[2021-05-10] MEDS: VANCOMYCIN/WATER (PEG) 1.25 GM/250 ML BAG IV ×2 (02:26→14:48)
[2021-05-10] MEDS: metroNIDAZOLE 500 MG/100 ML BAG 100 MG IVPB ×3 (06:13→22:09)
[2021-05-10 07:29] VITALS: BP 146/88; PULSE 62; RESP 17; TEMP 36.6; O2SAT 97
[2021-05-10] MEDS: Protein Nutritional Supplement 16 GM 1 OUNCE PACKET PO ×2 (09:02→20:47)
[2021-05-10] MEDS: Polyethylene Glycol 3350 17 GM PACKET PO (09:02)
[2021-05-10] MEDS: Pantoprazole 40 MG TABCR PO (09:02)
[2021-05-10] MEDS: DULoxetine 30 MG CAP 90 MG PO (09:03)
[2021-05-10] MEDS: Apixaban 5 MG TAB PO ×2 (09:03→20:51)
[2021-05-10] MEDS: Magnesium Chloride 64 MG TABCR PO (09:03)
[2021-05-10] MEDS: Docusate Sodium 100 MG CAP PO ×3 (09:03→20:51)
[2021-05-10] MEDS: Senna TAB 2 TAB PO ×2 (09:03→20:50)
[2021-05-10] MEDS: amLODIPine 5 MG TAB 10 MG PO (09:03)
[2021-05-10] MEDS: Zinc Sulfate 220 MG TAB PO (09:03)
[2021-05-10] MEDS: Dronabinol 2.5 MG CAP PO ×2 (09:03→11:08)
[2021-05-10] MEDS: Methylphenidate 10 MG TAB PO ×2 (09:04→11:08)
[2021-05-10] MEDS: Ascorbic Acid 500 MG TAB PO ×2 (09:04→20:49)
[2021-05-10] MEDS: busPIRone 5 MG TAB 20 MG PO ×2 (09:04→20:52)
[2021-05-10] MEDS: Spironolactone 25 MG TAB PO (09:04)
[2021-05-10] MEDS: Gabapentin 300 MG CAP PO ×3 (09:04→20:51)
[2021-05-10] MEDS: Baclofen 10 MG TAB PO ×3 (09:04→20:51)
[2021-05-10] MEDS: Multivitamin w/Minerals TAB 1 TAB PO (09:04)
[2021-05-10] MEDS: Normal Saline Flush 10 ML SYR 20 ML IVP ×2 (09:05→20:52)
[2021-05-10] MEDS: CIPROFLOXACIN 400 MG/200 ML BAG 200 MG IVPB ×2 (09:06→16:46)
--- NOTE | 2021-05-10 09:51 | RESPIRATORY ---
05/10/21- Pt states I feel like I have a frog in my throat after I drink the fruit protein drinks. He states this is why he keeps coughing. Reported to Dr. Luna.
[2021-05-10] MEDS: fentaNYL 50 MCG PATCH TD (10:08)
[2021-05-10] MEDS: Lidocaine 5% Patch 2 PATCH TP (10:09)
--- NOTE | 2021-05-10 10:12 | OTTR_ITS ---
Date of service: 05/10/21 Time of Service: 09:35 Occupational Therapy Notes Occupational Therapy Inpatient Treatment Note Date: 05/10/21 PRECAUTIONS: Fall, standard, DNR/DNI SUBJECTIVE: Pt was lying in bed when OT arrived. He states that he is sore in his (L) UE and feels that it is not getting better. OBJECTIVE: PAIN:c/o pain in (B) UE (L) > (R) Manual Therapy [id number]: OT performed PROM to pts digits which are both (B) in s lightly contracted positions with notable sweating in palms and skin break down, pt did wear his braces last night which will help with this. OT performed mobilization to decrease pts risk for contractures and increase functional use of pts hands and digits for ADL.IADL routines. OT then performed ROM into flexion and extension of digits. (L) was sensitive in his thumb, he does have reported sensation with his median nerve distribution again today and OT performs passive median nerve glides which he tolerated well at last session. OT assesses pts (L) UE with remarkable tone noted throughout. He has a rigidity with flexion of (L) wrist and pain with palpation to the brachial plexus. OT will monitor pts response to todays session and progress accordingly. Assessment/Plan: Due to pts rigidity to (L) UE and pain over his brachial plexus OT is concerned that pt may have an issue with his brachial plexus that could be causing this type of pain. He is tender to palpation over the brachial plexus area. This could be directly related to his spinal cord injury as they are connected in a sense but the severity of pain for pt when palpated indicates a more stressful response. OT was unable to palpate inner arm without increased pain. OT will continue to monitor this and if not better over the weekend will discuss further with . TREATMENT CODES/TIME: [id number], 25 minutes (09:35) Michelle Pearce, OTR/L [facility]
[2021-05-10] MEDS: HYDROmorphone 4 MG TAB PO (10:20)
[2021-05-10] MEDS: Acetaminophen 500 MG TAB 1000 MG PO ×2 (11:08→20:49)
[2021-05-10] MEDS: Normal Saline Flush 10 ML SYR IVP ×5 (11:09→20:49)
[2021-05-10] MEDS: HYDROmorphone 2 MG/ML VIAL IVP (11:18)
[2021-05-10 15:45] VITALS: BP 105/62; PULSE 75; RESP 17; TEMP 36.7; O2SAT 97
[2021-05-10] MEDS: Normal Saline 500 ML 100 ML IV (16:45)
[2021-05-10] MEDS: HYDROmorphone 2 MG/ML VIAL 1.5 MG IVP (20:48)
[2021-05-10] MEDS: diazePAM 5 MG TAB 2.5 MG PO (20:48)
[2021-05-10] MEDS: diphenhydrAMINE 25 MG CAP 50 MG PO (20:50)
[2021-05-10] MEDS: Melatonin 3 MG TAB 9 MG PO (20:51)
[2021-05-10] MEDS: LORazepam 0.5 MG TAB PO (20:51)
[2021-05-10 23:40] VITALS: BP 99/58; PULSE 80; RESP 16; TEMP 37; O2SAT 96
[2021-05-11] MEDS: CIPROFLOXACIN 400 MG/200 ML BAG 200 MG IVPB ×4 (00:04→23:59)
[2021-05-11] MEDS: VANCOMYCIN/WATER (PEG) 1.25 GM/250 ML BAG IV ×2 (02:05→15:03)
[2021-05-11] MEDS: metroNIDAZOLE 500 MG/100 ML BAG 100 MG IVPB ×3 (05:52→22:04)
[2021-05-11] MEDS: Apixaban 5 MG TAB PO ×2 (07:32→22:05)
[2021-05-11] MEDS: amLODIPine 5 MG TAB 10 MG PO (07:32)
[2021-05-11] MEDS: Dronabinol 2.5 MG CAP PO ×2 (07:32→11:30)
[2021-05-11] MEDS: Polyethylene Glycol 3350 17 GM PACKET PO (07:32)
[2021-05-11] MEDS: Protein Nutritional Supplement 16 GM 1 OUNCE PACKET PO ×2 (07:32→21:54)
[2021-05-11] MEDS: Gabapentin 300 MG CAP PO ×3 (07:33→22:06)
[2021-05-11] MEDS: Zinc Sulfate 220 MG TAB PO (07:33)
[2021-05-11] MEDS: Baclofen 10 MG TAB PO ×3 (07:33→22:05)
[2021-05-11] MEDS: Spironolactone 25 MG TAB PO (07:33)
[2021-05-11] MEDS: Pantoprazole 40 MG TABCR PO (07:33)
[2021-05-11] MEDS: Senna TAB 2 TAB PO ×2 (07:33→22:03)
[2021-05-11] MEDS: Ascorbic Acid 500 MG TAB PO ×2 (07:33→22:05)
[2021-05-11] MEDS: Magnesium Chloride 64 MG TABCR PO (07:33)
[2021-05-11] MEDS: busPIRone 5 MG TAB 20 MG PO ×2 (07:33→22:05)
[2021-05-11] MEDS: Multivitamin w/Minerals TAB 1 TAB PO (07:33)
[2021-05-11] MEDS: Methylphenidate 10 MG TAB PO ×2 (07:33→11:30)
[2021-05-11] MEDS: Normal Saline Flush 10 ML SYR 20 ML IVP ×2 (07:34→21:56)
[2021-05-11] MEDS: DULoxetine 30 MG CAP 90 MG PO (07:34)
[2021-05-11] MEDS: Docusate Sodium 100 MG CAP PO ×3 (07:34→21:57)
[2021-05-11 07:58] VITALS: BP 100/62; PULSE 64; RESP 16; TEMP 36; O2SAT 96
[2021-05-11] MEDS: HYDROmorphone 2 MG/ML VIAL IVP (09:04)
[2021-05-11] MEDS: Normal Saline Flush 10 ML SYR IVP ×2 (09:05→21:56)
[2021-05-11] MEDS: Lidocaine 5% Patch 2 PATCH TP (10:21)
[2021-05-11] MEDS: Acetaminophen 500 MG TAB 1000 MG PO ×2 (11:30→22:05)
[2021-05-11 14:39] VITALS: BP 101/62; PULSE 62; RESP 16; TEMP 36.9; O2SAT 96
[2021-05-11] MEDS: HYDROmorphone 2 MG/ML VIAL 1.5 MG IVP (21:55)
[2021-05-11] MEDS: diazePAM 5 MG TAB 2.5 MG PO (21:57)
[2021-05-11] MEDS: diphenhydrAMINE 25 MG CAP 50 MG PO (21:58)
[2021-05-11] MEDS: LORazepam 0.5 MG TAB PO (21:59)
[2021-05-11] MEDS: Melatonin 3 MG TAB 9 MG PO (22:03)
[2021-05-12 00:05] VITALS: BP 121/73; PULSE 60; RESP 16; TEMP 36.6; O2SAT 96
[2021-05-12] MEDS: VANCOMYCIN/WATER (PEG) 1.25 GM/250 ML BAG IV ×2 (02:07→15:10)
[2021-05-12] MEDS: metroNIDAZOLE 500 MG/100 ML BAG 100 MG IVPB ×3 (05:57→21:16)
[2021-05-12 07:22] VITALS: BP 120/70; PULSE 60; RESP 18; TEMP 36.4; O2SAT 98
[2021-05-12] MEDS: Gabapentin 300 MG CAP PO ×3 (07:40→20:56)
[2021-05-12] MEDS: Magnesium Chloride 64 MG TABCR PO (07:40)
[2021-05-12] MEDS: Dronabinol 2.5 MG CAP PO ×2 (07:40→11:13)
[2021-05-12] MEDS: busPIRone 5 MG TAB 20 MG PO ×2 (07:40→20:55)
[2021-05-12] MEDS: DULoxetine 30 MG CAP 90 MG PO (07:40)
[2021-05-12] MEDS: Docusate Sodium 100 MG CAP PO ×3 (07:41→20:54)
[2021-05-12] MEDS: Multivitamin w/Minerals TAB 1 TAB PO (07:41)
[2021-05-12] MEDS: Zinc Sulfate 220 MG TAB PO (07:41)
[2021-05-12] MEDS: Apixaban 5 MG TAB PO ×2 (07:41→20:54)
[2021-05-12] MEDS: Baclofen 10 MG TAB PO ×3 (07:41→20:54)
[2021-05-12] MEDS: amLODIPine 5 MG TAB 10 MG PO (07:41)
[2021-05-12] MEDS: Senna TAB 2 TAB PO ×2 (07:41→20:55)
[2021-05-12] MEDS: Ascorbic Acid 500 MG TAB PO ×2 (07:42→20:56)
[2021-05-12] MEDS: Methylphenidate 10 MG TAB PO ×2 (07:42→11:14)
[2021-05-12] MEDS: Polyethylene Glycol 3350 17 GM PACKET PO (07:42)
[2021-05-12] MEDS: CIPROFLOXACIN 400 MG/200 ML BAG 200 MG IVPB ×2 (07:42→15:56)
[2021-05-12] MEDS: Pantoprazole 40 MG TABCR PO (07:42)
[2021-05-12] MEDS: Protein Nutritional Supplement 16 GM 1 OUNCE PACKET PO ×2 (07:42→20:54)
[2021-05-12] MEDS: Spironolactone 25 MG TAB PO (07:42)
[2021-05-12] MEDS: Normal Saline Flush 10 ML SYR 20 ML IVP ×2 (07:43→20:57)
--- NOTE | 2021-05-12 09:07 | PGE_ITS ---
Date of Service Date of service: 05/12/21 Time of Service: 09: Assessment and Plan Assessment and plan (1) Acute osteomyelitis of sacrum: Start date: 05/12/21 Start time: 09:15 Status: Acute Assessment and plan: Continue vanco x 6 weeks doing well. Unable to visualize wound as wound vac in place, He also will be on cipro for 6 weeks for osteo. Dilaudid for drsg changes IV or PO per patient discretion he will likely have acute on chronic osteo of sacrum requiring doses of vanco per previous conversation with ID. (2) Major depressive disorder: Start date: 05/12/21 Start time: 09:15 Status: Chronic Assessment and plan: Depressed as his medications have been changed on him and no one discussed with him. He feels that he has no control and that having this discussion of medication is his only control. He only asks to be made aware when any changes be made. He does not want to try to change the mind but wants to be informed. We have worked out an agreement with decreasing IV dilaudid for bedtime to transition to PO see subjective. Qualifiers: Major depression recurrence: single episode Active/Remission status: currently active Major depression episode severity: moderate Qualified Code(s): F32.1 - Major depressive disorder, single episode, moderate (3) Quadriplegia: Start date: 05/12/21 Start time: 09:19 Status: Chronic Assessment and plan: cont. P.T. to work with patient He continues to work on upper body though he states that he does have pain and numbness to upper body, increased gabapentin Increased dilaudid to 3 mg BID prn while fentanyl patch has time to work with goal of gabapentin and fentanyl controlling his pain so that he can wean off dilaudid. He has appt with [facility] on June 18 for paralysis center to determine if surgery is an option (4) DVT prophylaxis: Start date: 05/12/21 Start time: 09:20 Status: Chronic Assessment and plan: On apixaban for RLE DVT (5) Constipation: Start date: 05/12/21 Start time: 09:20 Status: Chronic Assessment and plan: Continue bowel regimen. Ostomy producing soft stool. Continue regimen discussed with Dr. Olson Qualifiers: Constipation type: other constipation type Qualified Code(s): K59.09 - Other constipation Subjective Subjective Patient reports: other Interval history since last seen: Favio is visibly upset today. he has no been sleeping. His medications have been changed without anyone discussing this with him. He would like to know when changes to his medications are made. This is the only control he feels he has. He is not sleeping. I increased his dilaudid up to 3 mg. Favio and I discussed a plan to on a weekly basis decrease his dilaudid IV in half while transitioning to PO at HS with the need to possibly increase gabapentin at night. He is agreeable to this plan. He will go to 1 mg IV next week with 2 mg po and see how he sleeps then transition to the 4 mg po at HS with no IV the week after he may need titration up in gabapentin. He states feels no different in pain at this time. He felt better after discussing the plan and feeling like he was part of the arrangement. Favio feels this is the only control he has and it is important to him to know when changes are being made, even if it is being done he just asks that he be told. He gets depressed feeling that sense of loss of control no knowing. Otherwise he has been working on his arm exercises and continues to try to strengthen his arms. He denies SOB, N/V/D Exam Narrative Exam Narrative: Micha is alert and conversant w/ me. He did not sleep well, depressed today. Lungs are clear heart is regular Abdomen soft and nondistended w/ ostomy draining light brown semiformed stool Decubitus wounds have wound vacuum in place., Extremities with edema to right lower ankle and foot. Starting to have sensation to feet bilaterally. Unable to move Lower extremities can not feel sensation past ocmbs Objective Last Vital Signs Temp 36.4 C L 05/12/21 07:22 Pulse 60 05/12/21 07:22 Resp 18 05/12/21 07:22 BP 120/70 05/12/21 07:22 Pulse Ox 98 05/12/21 07:22
[2021-05-12] MEDS: Lidocaine 5% Patch 2 PATCH TP (09:52)
[2021-05-12] MEDS: HYDROmorphone 4 MG TAB PO (11:13)
[2021-05-12] MEDS: Acetaminophen 500 MG TAB 1000 MG PO ×2 (11:14→20:55)
[2021-05-12 13:20] LABS: Vancomycin, Trough 16.7 ug/mL (10.0-20.0)
[2021-05-12] MEDS: HYDROmorphone 2 MG/ML VIAL IVP (15:08)
[2021-05-12] MEDS: Normal Saline Flush 10 ML SYR IVP ×2 (15:09→21:15)
[2021-05-12 15:22] VITALS: BP 117/79; PULSE 66; RESP 17; TEMP 36.9; O2SAT 98
[2021-05-12] MEDS: Normal Saline 500 ML 100 ML IV (15:56)
[2021-05-12] MEDS: diazePAM 5 MG TAB 2.5 MG PO (20:54)
[2021-05-12] MEDS: Melatonin 3 MG TAB 9 MG PO (20:56)
[2021-05-12] MEDS: diphenhydrAMINE 25 MG CAP 50 MG PO (20:56)
[2021-05-12] MEDS: HYDROmorphone 2 MG/ML VIAL 3 MG IVP (21:15)
[2021-05-12] MEDS: LORazepam 0.5 MG TAB PO (22:30)
[2021-05-13 00:02] VITALS: BP 122/75; PULSE 74; RESP 18; TEMP 36.2; O2SAT 98
[2021-05-13] MEDS: CIPROFLOXACIN 400 MG/200 ML BAG 200 MG IVPB ×3 (00:15→16:27)
[2021-05-13] MEDS: VANCOMYCIN/WATER (PEG) 1.25 GM/250 ML BAG IV ×2 (02:37→13:41)
[2021-05-13] MEDS: metroNIDAZOLE 500 MG/100 ML BAG 100 MG IVPB ×3 (06:33→21:56)
[2021-05-13] MEDS: Methylphenidate 10 MG TAB PO ×2 (07:01→10:14)
[2021-05-13] MEDS: Dronabinol 2.5 MG CAP PO ×2 (07:01→10:14)
[2021-05-13] MEDS: Pantoprazole 40 MG TABCR PO (07:02)
[2021-05-13 07:30] VITALS: BP 98/62; PULSE 62; RESP 18; TEMP 36.6; O2SAT 97
[2021-05-13] MEDS: DULoxetine 30 MG CAP 90 MG PO (08:38)
[2021-05-13] MEDS: Polyethylene Glycol 3350 17 GM PACKET PO (08:38)
[2021-05-13] MEDS: busPIRone 5 MG TAB 20 MG PO ×2 (08:38→21:56)
[2021-05-13] MEDS: Protein Nutritional Supplement 16 GM 1 OUNCE PACKET PO ×2 (08:38→21:53)
[2021-05-13] MEDS: Spironolactone 25 MG TAB PO (08:39)
[2021-05-13] MEDS: Senna TAB 2 TAB PO ×2 (08:39→21:56)
[2021-05-13] MEDS: Ascorbic Acid 500 MG TAB PO ×2 (08:39→21:55)
[2021-05-13] MEDS: Multivitamin w/Minerals TAB 1 TAB PO (08:39)
[2021-05-13] MEDS: Zinc Sulfate 220 MG TAB PO (08:40)
[2021-05-13] MEDS: Docusate Sodium 100 MG CAP PO ×3 (08:40→21:56)
[2021-05-13] MEDS: Baclofen 10 MG TAB PO ×3 (08:40→21:55)
[2021-05-13] MEDS: Apixaban 5 MG TAB PO ×2 (08:40→21:56)
[2021-05-13] MEDS: Gabapentin 300 MG CAP PO ×3 (08:40→21:55)
[2021-05-13] MEDS: Magnesium Chloride 64 MG TABCR PO (08:40)
--- NOTE | 2021-05-13 09:05 | NUR.NOTE ---
Nursing Note: BP 98/65, Amlodipine held, charge nurse notified
--- NOTE | 2021-05-13 09:52 | OTTR_ITS ---
Date of service: 05/13/21 Time of Service: 08:05 Occupational Therapy Notes Occupational Therapy Inpatient Treatment Note Date: 05/13/21 PRECAUTIONS: Fall, standard, DNR/DNI SUBJECTIVE: Pt was lying in bed when OT arrived. He states that he has worn his braces and feels that his hands are doing ok. He has increased pain in his arms. OBJECTIVE: PAIN:c/o pain in (B) UE (L) > (R) Assessment/Plan: OT will continue to monitor pts pain in his (L) UE, he is tender to palpation again today but tolerated ROM better. All pt did today was assess pts mobility and ability to move his (B) UE in a functional manner. OT does feel that pts pain is slightly better in his (L). He remains hypersensitive which is expected. OT does check pts (B) hands/wrist for skin breakdown which appears to look good and that the (B) orthosis are (A) as needed. OT will continue to work with pt on increased functional (I). TREATMENT CODES/TIME: No Charge for todays session, 10 minutes (08:05) Michelle Pearce OTR/L [facility]
[2021-05-13] MEDS: fentaNYL 50 MCG PATCH TD (10:14)
[2021-05-13] MEDS: HYDROmorphone 2 MG/ML VIAL IVP (10:15)
[2021-05-13] MEDS: Normal Saline Flush 10 ML SYR 20 ML IVP ×2 (10:20→21:54)
[2021-05-13] MEDS: Lidocaine 5% Patch 2 PATCH TP (10:44)
[2021-05-13] MEDS: amLODIPine 5 MG TAB 10 MG PO (10:44)
[2021-05-13] MEDS: Acetaminophen 500 MG TAB 1000 MG PO ×2 (13:17→21:55)
[2021-05-13 15:30] VITALS: BP 128/78; PULSE 72; RESP 18; TEMP 36.9; O2SAT 98
[2021-05-13] MEDS: HYDROmorphone 2 MG/ML VIAL 3 MG IVP (21:53)
[2021-05-13] MEDS: diazePAM 5 MG TAB 2.5 MG PO (21:54)
[2021-05-13] MEDS: diphenhydrAMINE 25 MG CAP 50 MG PO (21:55)
[2021-05-13] MEDS: LORazepam 0.5 MG TAB PO (21:55)
[2021-05-13] MEDS: Melatonin 3 MG TAB 9 MG PO (21:55)
[2021-05-13] MEDS: Normal Saline 500 ML 100 ML IV (21:56)
[2021-05-14] MEDS: CIPROFLOXACIN 400 MG/200 ML BAG 200 MG IVPB ×3 (00:17→15:37)
[2021-05-14 00:28] VITALS: BP 108/70; PULSE 79; RESP 16; TEMP 37; O2SAT 96
[2021-05-14] MEDS: VANCOMYCIN/WATER (PEG) 1.25 GM/250 ML BAG IV ×2 (02:28→13:52)
[2021-05-14] MEDS: Methylphenidate 10 MG TAB PO ×2 (06:20→10:34)
[2021-05-14] MEDS: metroNIDAZOLE 500 MG/100 ML BAG 100 MG IVPB ×3 (06:20→21:49)
[2021-05-14] MEDS: Dronabinol 2.5 MG CAP PO ×2 (06:20→10:34)
[2021-05-14] MEDS: amLODIPine 5 MG TAB 10 MG PO (08:16)
[2021-05-14] MEDS: Multivitamin w/Minerals TAB 1 TAB PO (08:16)
[2021-05-14] MEDS: Magnesium Chloride 64 MG TABCR PO (08:16)
[2021-05-14] MEDS: Ascorbic Acid 500 MG TAB PO ×2 (08:16→20:02)
[2021-05-14] MEDS: DULoxetine 30 MG CAP 90 MG PO (08:16)
[2021-05-14] MEDS: Gabapentin 300 MG CAP PO ×3 (08:16→20:01)
[2021-05-14] MEDS: busPIRone 5 MG TAB 20 MG PO ×2 (08:16→20:01)
[2021-05-14] MEDS: Apixaban 5 MG TAB PO ×2 (08:17→20:02)
[2021-05-14] MEDS: Spironolactone 25 MG TAB PO (08:17)
[2021-05-14] MEDS: Protein Nutritional Supplement 16 GM 1 OUNCE PACKET PO ×2 (08:17→20:01)
[2021-05-14] MEDS: Baclofen 10 MG TAB PO ×3 (08:17→20:01)
[2021-05-14] MEDS: Polyethylene Glycol 3350 17 GM PACKET PO (08:17)
[2021-05-14] MEDS: Pantoprazole 40 MG TABCR PO (08:17)
[2021-05-14] MEDS: Docusate Sodium 100 MG CAP PO ×3 (08:17→20:01)
[2021-05-14] MEDS: Senna TAB 2 TAB PO ×2 (08:17→20:01)
[2021-05-14] MEDS: Lidocaine 5% Patch 2 PATCH TP (10:33)
--- NOTE | 2021-05-14 10:56 | NT_ITS ---
Date of service: 05/14/21 Time of Service: 08:35 Occupational Therapy Notes 05/14/21 OT attempted to see pt who was sleeping when OT arrived. OT will resume services tomorrow. Michelle Pearce OTR/[facility]
[2021-05-14 11:33] LABS: Abs Immature Grans 0.01 10^3/uL (0.0-0.06); Absolute Basophil Count 0.02 10^3/uL (0.0-0.2); Absolute Lymphocyte Count 1.05 10^3/uL (1.2-3.4); Absolute Monocyte Count 0.47 10^3/uL (0.1-0.8); Absolute Neutrophil Count 2.03 10^3/uL (1.2-6.7); Basophils % 0.5; Eosinophils % 7.7; HCT 34.7 % (40.0-50.0); HGB 11.1 g/dL (13.5-17.5); Immature Grans % 0.3; Lymphocytes % 27.1; MCH 27.8 pg (27.0-33.0); MPV 10.1 fL (8.0-11.0); Monocytes % 12.1; Neutrophils % 52.3; Nucleated RBC 0 %; Platelet Count 183 10^3/uL (130-400); RBC 3.99 10^6/uL (4.36-5.78); RDW 16.9 % (11.8-14.1); RDW-SD 54.2 fL; WBC 3.88 10^3/uL (4.4-10.8)
[2021-05-14] MEDS: HYDROmorphone 2 MG/ML VIAL IVP ×2 (11:33→14:32)
[2021-05-14] MEDS: Acetaminophen 500 MG TAB 1000 MG PO ×2 (11:34→20:02)
[2021-05-14 11:35] LABS: ESR 32 mm/hr (0-20)
[2021-05-14 11:55] LABS: ALT 22 U/L (16-63); AST 14 U/L (15-37); Albumin 2.6 g/dL (3.4-5.0); Alkaline Phosphatase 61 U/L (46-116); Anion Gap 8.4 mmol/L (3-11); BUN 18 mg/dL (7-18); Bilirubin, Total 0.3 mg/dL (0.2-1.0); CO2 25.6 mmol/L (21.0-32.0); CREATININE 0.7 mg/dL (0.70-1.30); Calcium 9.5 mg/dL (8.5-10.1); Chloride 107 mmol/L (98-107); Glucose 93 mg/dL (74-106); Potassium 3.5 mmol/L (3.5-5.1); Sodium 141 mmol/L (136-145); Total Protein 6.1 g/dL (6.4-8.2)
[2021-05-14 12:13] VITALS: BP 100/62; PULSE 62; RESP 12; TEMP 36.6; O2SAT 99
[2021-05-14 12:17] LABS: C-Reactive Protein 1.14 mg/dL (0.0-0.3)
[2021-05-14] MEDS: Normal Saline Flush 10 ML SYR 20 ML IVP ×2 (13:50→20:03)
[2021-05-14] MEDS: Normal Saline Flush 10 ML SYR IVP ×2 (14:33→21:48)
--- NOTE | 2021-05-14 16:11 | WOUNDCONS ---
- If Service Date Differs Date of service: 05/14/21 Time of Service: 16:11 Wound Initial Evaluation Narrative: Mr. Velasquez seen for weekly re-evaluation and photos. Gives verbal consent. Wounds have decreased in size and improved in overall appearance since last week. See photos below for comparison. Per Favio he is eating well. Per documentation he has been eating 75-100% of his meals. Protein on his meal trays was doubled 2 weeks ago, this is probably a factor in wound improvement. Pt's calorie and protein demand high d/t wounds. Request nutrition continues to follow Pt. Pt educated on importance of continuing to eat his meals to reach protein and calorie goal. [employer] bed continues to be rounded on each shift. No issues to report. Alternating air setting is on @ this time. Right Ischial wound had wound vac restarted 7 days ago. Slough has decreased, about 10% remains. Wound edge pulled up in one of the photos to show slough. Improving. Left Ischial wound appears healthier, with healthy granulation tissue noted to wound base tissue. No slough is seen in wound bed. Smaller than 7 days ago. Continue wound vac @ this time. Of note tunneling still present, white foam being used. Coccyx/sacral wound is healed @ this time. No longer following. Right lateral pinky toe has a DTI present. not open. recommend skin prep and offloading to area @ this time. - Wound Left Ischial Tuberosity Wound Length: 2.4 cm (3.1 cm tunnel @ 11 o'clock) Wound Width: 2.5 cm Wound Depth: 1.3 cm Right Ischial Tuberosity Wound Length: 1.9 cm (2cm tunnel @ 12 o'clock) Wound Width: 2.3 cm Wound Depth: 1.5 cm - Recomendation Recomendation:: Continue current Tx, no changes @ this time. Physcian/Nurse Practioner Notified: Yes (Dr. Olson)
[2021-05-14 16:23] VITALS: BP 100/60; PULSE 68; RESP 18; TEMP 35.8; O2SAT 96
[2021-05-14] MEDS: diazePAM 5 MG TAB 2.5 MG PO (20:01)
[2021-05-14] MEDS: diphenhydrAMINE 25 MG CAP 50 MG PO (20:01)
[2021-05-14] MEDS: HYDROmorphone 4 MG TAB PO (20:02)
[2021-05-14] MEDS: Melatonin 3 MG TAB 9 MG PO (21:47)
[2021-05-14] MEDS: HYDROmorphone 2 MG/ML VIAL 3 MG IVP (21:47)
[2021-05-14] MEDS: LORazepam 0.5 MG TAB PO (21:48)
[2021-05-14] MEDS: Normal Saline 500 ML 100 ML IV (21:48)
[2021-05-14 22:50] VITALS: BP 106/66; PULSE 64; RESP 18; TEMP 36.2; O2SAT 96
[2021-05-15] MEDS: CIPROFLOXACIN 400 MG/200 ML BAG 200 MG IVPB (00:28)
[2021-05-15] MEDS: VANCOMYCIN/WATER (PEG) 1.25 GM/250 ML BAG IV ×2 (03:02→13:41)
[2021-05-15] MEDS: Acetaminophen 500 MG TAB 1000 MG PO ×3 (03:04→20:00)
[2021-05-15] MEDS: metroNIDAZOLE 500 MG/100 ML BAG 100 MG IVPB (06:02)
[2021-05-15] MEDS: Dronabinol 2.5 MG CAP PO ×2 (06:02→10:24)
[2021-05-15] MEDS: Methylphenidate 10 MG TAB PO ×2 (06:02→10:24)
--- NOTE | 2021-05-15 07:48 | PGE_ITS ---
Date of Service Date of service: 05/14/21 Time of Service: 14:00 Assessment and Plan Assessment and plan (1) Acute osteomyelitis of sacrum: Status: Acute Assessment and plan: Continue vanco x 6 weeks, to be completed June 01, 2021. His case was discussed with ID at [facility], see Dr Olson's H&P from April 10 for full details. check surveillance labs weekly on ThursdayMay 21. Dilaudid for drsg changes IV or PO per patient discretion (2) Major depressive disorder: Status: Chronic Assessment and plan: continue current regimen. no changes at this time Qualifiers: Major depression recurrence: single episode Active/Remission status: currently active Major depression episode severity: moderate Qualified Code(s): F32.1 - Major depressive disorder, single episode, moderate (3) Quadriplegia: Status: Chronic Assessment and plan: cont. P.T. to work with patient continue baclofen, neurontin, bowel management He has appt with [facility] on June 18 for paralysis center to determine if surgery is an option (4) DVT prophylaxis: Status: Chronic Assessment and plan: On apixaban for RLE DVT (5) Constipation: Status: Chronic Assessment and plan: Continue bowel regimen. Ostomy producing soft stool. Continue regimen discussed with Dr. Olson Qualifiers: Constipation type: other constipation type Qualified Code(s): K59.09 - Other constipation Subjective Subjective Patient reports: no new complaints, tolerating liquids well, tolerating a regular diet and afebrile Exam Const General: cooperative, no acute distress and ill appearing chronically Nutritional Appearance: average body habitus Orientation: alert, awake and oriented x3 HENVA Head: normal to inspection, normocephalic and atraumatic Mouth: oral mucosae normal Resp Effort & Inspection: normal respiratory effort and able to speak in complete sentences Auscultation: clear to auscultation bilaterally Cardio Rate: regular rate Rhythm: regular rhythm GI Inspection: other (ostomy producing soft brown stool.) Palpation: soft Auscultation: normal bowel sounds Skin General skin exam: other (wounds are healing well, wound beds with beefy tissue, edges intact, ) Lesions: other (see wound care notes for wound description, no surrounding erythema) Rashes: no rashes Neuro General: patient alert, patient awake and patient oriented x3 Extrem General: other (quadraplegic, limited UE movements. ) Objective Last Vital Signs Temp 36.2 C L 05/14/21 22:50 Pulse 64 05/14/21 22:50 Resp 18 05/14/21 22:50 BP 106/66 05/14/21 22:50 Pulse Ox 96 05/14/21 22:50 Laboratory Results - last 24 hr 05/14/21 05/14/21 05/14/21 11:15 11:15 11:15 WBC RBC Hgb Hct MCV MCH MCHC RDW Plt Count MPV Immature Gran % Neutrophils % Lymphocytes % Monocytes % Eosinophils % Basophils % Nucleated RBC % Absolute Neutrophils Absolute Lymphocytes Absolute Monocytes Absolute Eosinophils Absolute Basophils ESR 32 H Sodium 141 Potassium 3.5 Chloride 107 Carbon Dioxide 25.6 Anion Gap 8.4 BUN 18 Creatinine 0.7 Estimated GFR/1.73 m2 >= 60.00 Glucose 93 Calcium 9.5 Total Bilirubin 0.3 AST 14 L ALT 22 Alkaline Phosphatase 61 C-Reactive Protein 1.14 H Total Protein 6.1 L Albumin 2.6 L 05/14/21 11:15 WBC 3.88 L RBC 3.99 L Hgb 11.1 L Hct 34.7 L MCV 87.0 MCH 27.8 MCHC 32.0 RDW 16.9 H Plt Count 183 MPV 10.1 Immature Gran % 0.3 Neutrophils % 52.3 Lymphocytes % 27.1 Monocytes % 12.1 Eosinophils % 7.7 Basophils % 0.5 Nucleated RBC % 0 Absolute Neutrophils 2.03 Absolute Lymphocytes 1.05 L Absolute Monocytes 0.47 Absolute Eosinophils 0.30 Absolute Basophils 0.02 ESR Sodium Potassium Chloride Carbon Dioxide Anion Gap BUN Creatinine Estimated GFR/1.73 m2 Glucose Calcium Total Bilirubin AST ALT Alkaline Phosphatase C-Reactive Protein Total Protein Albumin
[2021-05-15 09:18] VITALS: BP 122/77; PULSE 61; RESP 18; TEMP 36.6; O2SAT 98
[2021-05-15] MEDS: Polyethylene Glycol 3350 17 GM PACKET PO (09:35)
[2021-05-15] MEDS: Gabapentin 300 MG CAP PO ×3 (09:35→20:01)
[2021-05-15] MEDS: Protein Nutritional Supplement 16 GM 1 OUNCE PACKET PO ×2 (09:35→20:02)
[2021-05-15] MEDS: Multivitamin w/Minerals TAB 1 TAB PO (09:35)
[2021-05-15] MEDS: Lidocaine 5% Patch 2 PATCH TP (09:35)
[2021-05-15] MEDS: Pantoprazole 40 MG TABCR PO (09:36)
[2021-05-15] MEDS: amLODIPine 5 MG TAB 10 MG PO (09:36)
[2021-05-15] MEDS: busPIRone 5 MG TAB 20 MG PO ×2 (09:36→20:00)
[2021-05-15] MEDS: Docusate Sodium 100 MG CAP PO ×3 (09:37→20:01)
[2021-05-15] MEDS: Magnesium Chloride 64 MG TABCR PO (09:37)
[2021-05-15] MEDS: Ascorbic Acid 500 MG TAB PO ×2 (09:37→20:01)
[2021-05-15] MEDS: Spironolactone 25 MG TAB PO (09:37)
[2021-05-15] MEDS: Senna TAB 2 TAB PO ×2 (09:37→20:01)
[2021-05-15] MEDS: Apixaban 5 MG TAB PO ×2 (09:46→20:01)
[2021-05-15] MEDS: Baclofen 10 MG TAB PO ×3 (09:46→20:01)
[2021-05-15] MEDS: HYDROmorphone 2 MG/ML VIAL IVP ×2 (09:47→15:50)
--- NOTE | 2021-05-15 09:54 | OT.INTREAT ---
Date of service: 05/15/21 Time of Service: 09:25 Occupational Therapy Notes Occupational Therapy Inpatient Treatment Note Date: 05/15/21 PRECAUTIONS: Fall, standard, DNR/DNI SUBJECTIVE: Pt was lying in bed when OT arrived. He states that he has worn his braces and feels that his hands are doing ok. He has increased pain in his arms and notes that yesterday they rolled him for his wound checks on to his shoulders and his (R) hand continued to tremor most of the day. OBJECTIVE: PAIN:c/o pain in (B) UE (L) > (R) Manual Therapy [id number]: OT performed joint blocking techniques, manual mobilization to pts (B) UE with PROM to pts wrists, forearms and digits. Functionally pt performed this with increased (I) with his grasp and release. OT performed AA ROM with tone reduction techniques needed in his (L) UE which is limiting his use of his functional (I). TREATMENT CODES/TIME: [id number], 15 minutes (09:10) [facility]
[2021-05-15] MEDS: Normal Saline Flush 10 ML SYR IVP ×3 (10:23→21:18)
[2021-05-15] MEDS: DULoxetine 30 MG CAP 90 MG PO (10:24)
--- NOTE | 2021-05-15 14:44 | PDOC.CMACT ---
- If Service Date Differs Date of service: 05/15/21 Time of Service: 14:44
[2021-05-15] MEDS: Normal Saline Flush 10 ML SYR 20 ML IVP ×2 (15:19→20:02)
--- NOTE | 2021-05-15 15:42 | PT.INTREAT ---
Date of service: 05/15/21 Time of Service: 15:42 PT Notes Visit Reasons: Osteomyelitis Inpatient Physical Therapy Treatment Note [facility] Date: 05/15/2021 PRECAUTIONS: High risk for skin breakdown. C6-C7 quadriplegia. SUBJECTIVE: Patient complained of increased spasms with today's ranging, became a little bit upset. Nurse Hugo enetred room and was updated of patient's symptom. Nurse Hugo administered Dilaudid right away to patient. PT suggested stopping the ranging but patient insisted for it to continue. OBJECTIVE: Increased spasms with ranging compared to previous sessions. PAIN: Discomfort from increased spasms in B UE and trunk. BED MOBILITY/TRANSFERS Rolling L/R: Total assist GAIT: N/A. Non-ambulatory. CAREGIVER EDUCATION: Continued with guiding, educating, and training Nicki with B LE ranging. Nicki required minimal cueing today for hand placement and speed of limb movement to minimize spasms. Re-demonstrated bed positioning to ensure neutral rotation in B hips and B ankles to minimize contracture formation while facilitating wound healing. ASSESSMENT: Skilling provided today for caregiver education. Also spoke with DME provider over the phone regarding the possibility of a trial motorized wheelchair. It was pointed out that since the motorized wheelchair was fitted for patient over three months ago, wheelchair fit and functionality may not match patient's current postural/positioning needs. PT asked the DME provider if there is a way that a trial wheelchair of similar features can be delivered a week or so before planned discharge to allow PT adequate time to troubleshoot potential issues surrounding training for motorized wheelchair use and operation. DME provider stated that there may be a possibility that motorized wheelchair can be delivered at the hospital 2-3 days prior to scheduled discharge to give time for some needed adjustments, patient/caregiver training, and reassessment of fit. PLAN: Will consult with wound nurse, , and CM regarding status of wound and readiness of patient for resumption of skilled services for trunk stabilization/edge of bed training in anticipation of motorized wheelchair use. TREATMENT CODE/TIME: [id number] x 33 minutes beginning at 15:42 PM.
--- NOTE | 2021-05-15 17:00 | PDOC.CMACT ---
- If Service Date Differs Date of service: 05/15/21 Time of Service: 17:00 Care Management Activity Note Bruce enjoys watching netflix on his tablet and having visitors. He also enjoys being able to text and face time his family and friends. Bruce has met with OT, PT and [place]. He would like to get up in the chair more, says he's been outside twice and was wondering if it would be a possible for PT to help him outside so he could meet with his family? He is really looking forward to seeing his daughter, and wonders if it is even possible since she has not been vaccinated for covid? In addition, there is a family friend up in OB being induced today and he wonders if it would be possible for him to go up to OB to meet the baby before they are discharged? CM will follow up.
[2021-05-15 18:13] VITALS: BP 110/69; PULSE 75; RESP 18; TEMP 37.2; O2SAT 95
[2021-05-15] MEDS: diazePAM 5 MG TAB 2.5 MG PO (19:59)
[2021-05-15 20:00] VITALS: BP 104/69; PULSE 70; RESP 18; TEMP 36.8; O2SAT 96
[2021-05-15] MEDS: diphenhydrAMINE 25 MG CAP 50 MG PO (20:01)
[2021-05-15] MEDS: LORazepam 0.5 MG TAB PO (21:17)
[2021-05-15] MEDS: HYDROmorphone 2 MG/ML VIAL 3 MG IVP (21:17)
[2021-05-15] MEDS: Melatonin 3 MG TAB 9 MG PO (21:18)
[2021-05-16] MEDS: VANCOMYCIN/WATER (PEG) 1.25 GM/250 ML BAG IV ×2 (02:02→14:10)
[2021-05-16] MEDS: Normal Saline Flush 10 ML SYR IVP ×3 (02:03→21:02)
[2021-05-16] MEDS: Acetaminophen 500 MG TAB 1000 MG PO ×3 (04:18→19:50)
[2021-05-16 07:36] VITALS: BP 143/85; PULSE 79; RESP 18; TEMP 36.8; O2SAT 98
[2021-05-16] MEDS: Polyethylene Glycol 3350 17 GM PACKET PO (08:22)
[2021-05-16] MEDS: Protein Nutritional Supplement 16 GM 1 OUNCE PACKET PO ×2 (08:22→19:51)
[2021-05-16] MEDS: DULoxetine 30 MG CAP 90 MG PO (08:23)
[2021-05-16] MEDS: Dronabinol 2.5 MG CAP PO ×2 (08:23→12:03)
[2021-05-16] MEDS: Spironolactone 25 MG TAB PO (08:23)
[2021-05-16] MEDS: Gabapentin 300 MG CAP PO ×3 (08:23→19:48)
[2021-05-16] MEDS: Multivitamin w/Minerals TAB 1 TAB PO (08:23)
[2021-05-16] MEDS: Magnesium Chloride 64 MG TABCR PO (08:23)
[2021-05-16] MEDS: Apixaban 5 MG TAB PO ×2 (08:23→19:53)
[2021-05-16] MEDS: Docusate Sodium 100 MG CAP PO ×3 (08:24→19:49)
[2021-05-16] MEDS: amLODIPine 5 MG TAB 10 MG PO (08:24)
[2021-05-16] MEDS: Methylphenidate 10 MG TAB PO ×2 (08:24→12:02)
[2021-05-16] MEDS: Baclofen 10 MG TAB PO ×3 (08:24→19:50)
[2021-05-16] MEDS: Ascorbic Acid 500 MG TAB PO ×2 (08:24→19:50)
[2021-05-16] MEDS: Senna TAB 2 TAB PO ×2 (08:24→19:49)
[2021-05-16] MEDS: busPIRone 5 MG TAB 20 MG PO ×2 (08:24→19:49)
[2021-05-16] MEDS: Pantoprazole 40 MG TABCR PO (08:24)
[2021-05-16] MEDS: Normal Saline Flush 10 ML SYR 20 ML IVP ×2 (08:25→19:50)
--- NOTE | 2021-05-16 09:28 | OT.INTREAT ---
Date of service: 05/16/21 Time of Service: 08:35 Occupational Therapy Notes Occupational Therapy Inpatient Treatment Note Date: 05/16/21 PRECAUTIONS: Fall, standard, DNR/DNI SUBJECTIVE: Pt was sitting in bed when OT arrived. He states that he did not wear his splints last night and notes tightness in his hands. OBJECTIVE: PAIN:c/o pain in (B) UE more specifically his elbows and shoulders. Manual Therapy [id number]: OT performed joint blocking techniques, manual mobilization to pts (B) UE with PROM to pts wrists, forearms and digits. Functionally pt performed this with increased (I) with his grasp and release. OT performed AA ROM with tone reduction techniques needed in his (L) UE which is limiting his use of his functional (I). His tone in his (L) UE was better managed today. OT is able to perform (L) Wrist flexion today which was limited yesterday due to tone. OT puts braces on pts (B) hands to decrease contracture risk. OT will continue to monitor pts (B) UE. OT recommends: 1. Hospital bed with alternating pressure for increased care of pts wounds and medically necessary due to pts decreased functional mobility and high risk of wounds. 2. A christa lift for transportation to and from bed to wheelchair etc.. to increase pts safety and pressure relief on his body during transfers. 3. His electric wheelchair transferred from [facility]- pt reports that he has an electric wheelchair at the facility and they are waiting for him to return home to get this delivered. 4. [place] cuff- this adaptive equipment will be utilized to maximize pts functional (I) in his ADL/IADL routines but supporting his decreased hand function and control 5. OT recommends that pt has HH OT/PT as well as a caregiver 24 hours/day given his high needs and inability to cook, clean and take care of his toileting routines. Pt will also need (A) with functional mobility and will be unable to perform this without (A). 6. Plate scoop- to increased pts functional (I) with his eating routine. TREATMENT CODES/TIME: [id number], 15 minutes (08:35) Michelle Pearce, OTR/L [facility]
[2021-05-16] MEDS: Lidocaine 5% Patch 2 PATCH TP (09:59)
[2021-05-16] MEDS: fentaNYL 50 MCG PATCH TD (10:00)
[2021-05-16] MEDS: LORazepam 0.5 MG TAB PO ×2 (13:27→21:01)
[2021-05-16] MEDS: HYDROmorphone 2 MG/ML VIAL IVP (13:28)
[2021-05-16] MEDS: Normal Saline 500 ML 100 ML IV (14:10)
[2021-05-16 16:10] VITALS: BP 149/83; PULSE 78; RESP 17; TEMP 36.9; O2SAT 97
[2021-05-16] MEDS: HYDROmorphone 4 MG TAB PO (16:52)
[2021-05-16] MEDS: diazePAM 5 MG TAB 2.5 MG PO (19:48)
[2021-05-16] MEDS: diphenhydrAMINE 25 MG CAP 50 MG PO (19:49)
[2021-05-16] MEDS: Melatonin 3 MG TAB 9 MG PO (21:01)
[2021-05-16] MEDS: HYDROmorphone 2 MG/ML VIAL 3 MG IVP (21:02)
[2021-05-16 21:51] VITALS: BP 94/61; PULSE 75; RESP 17; TEMP 36.4; O2SAT 96
[2021-05-17] MEDS: VANCOMYCIN/WATER (PEG) 1.25 GM/250 ML BAG IV ×2 (02:00→15:09)
--- NOTE | 2021-05-17 03:24 | NUR.NOTE ---
Nursing Note: Scheduled Vancomycin at 0200 was administered on time. Charted only this time due to downtime on computer from 2200 hrs to 0300 hrs.
[2021-05-17] MEDS: Acetaminophen 500 MG TAB 1000 MG PO ×3 (03:47→20:48)
[2021-05-17 07:13] VITALS: BP 116/73; PULSE 64; RESP 19; TEMP 36.3; O2SAT 96
[2021-05-17] MEDS: Normal Saline Flush 10 ML SYR 20 ML IVP ×2 (08:18→20:49)
[2021-05-17] MEDS: busPIRone 5 MG TAB 20 MG PO ×2 (08:19→20:47)
[2021-05-17] MEDS: Multivitamin w/Minerals TAB 1 TAB PO (08:20)
[2021-05-17] MEDS: Docusate Sodium 100 MG CAP PO ×3 (08:20→20:48)
[2021-05-17] MEDS: Gabapentin 300 MG CAP PO ×3 (08:20→20:48)
[2021-05-17] MEDS: Apixaban 5 MG TAB PO ×2 (08:21→20:48)
[2021-05-17] MEDS: Baclofen 10 MG TAB PO ×3 (08:21→20:48)
[2021-05-17] MEDS: amLODIPine 5 MG TAB 10 MG PO (08:21)
[2021-05-17] MEDS: Pantoprazole 40 MG TABCR PO (08:21)
[2021-05-17] MEDS: Ascorbic Acid 500 MG TAB PO ×2 (08:21→20:48)
[2021-05-17] MEDS: Methylphenidate 10 MG TAB PO ×2 (08:21→11:16)
[2021-05-17] MEDS: Magnesium Chloride 64 MG TABCR PO (08:22)
[2021-05-17] MEDS: DULoxetine 30 MG CAP 90 MG PO (08:22)
[2021-05-17] MEDS: Dronabinol 2.5 MG CAP PO ×2 (08:22→11:16)
[2021-05-17] MEDS: Spironolactone 25 MG TAB PO (08:23)
[2021-05-17] MEDS: Protein Nutritional Supplement 16 GM 1 OUNCE PACKET PO ×2 (08:23→20:47)
[2021-05-17] MEDS: Senna TAB 2 TAB PO ×2 (08:23→20:48)
[2021-05-17] MEDS: Polyethylene Glycol 3350 17 GM PACKET PO (08:24)
--- NOTE | 2021-05-17 10:16 | OTTR_ITS ---
Date of service: 05/17/21 Time of Service: 09:00 Occupational Therapy Notes Occupational Therapy Inpatient Treatment Note Date: 05/17/21 PRECAUTIONS: Fall, standard, DNR/DNI SUBJECTIVE: Pt was lying in bed when OT arrived, he is agreeable to OT session and notes that he is tired but feeling better. OBJECTIVE: PAIN:c/o pain in (B) UE (L) > (R) Manual Therapy [id number]: OT performed joint blocking techniques, manual mobilization to pts (B) UE with PROM to pts wrists, forearms and digits. Functionally pt performed this with increased (I) with his grasp and release. OT performed AA ROM with tone reduction techniques needed in his (L) UE which is limiting his use of his functional (I). OT and pt go over goals and care planning. OT discusses with pt that a meeting is being held next Thursday to discuss goals with the team and he is agreeable to this. OT recommends: 1. Hospital bed with alternating pressure for increased care of pts wounds and medically necessary due to pts decreased functional mobility and high risk of wo unds. 2. A christa lift for transportation to and from bed to wheelchair etc.. to increase pts safety and pressure relief on his body during transfers. 3. His electric wheelchair transferred from [facility]- pt reports that he has an electric wheelchair at the facility and they are waiting for him to return home to get this delivered. 4. [place] cuff- this adaptive equipment will be utilized to maximize pts functional (I) in his ADL/IADL routines but supporting his decreased hand function and control 5. OT recommends that pt has HH OT/PT as well as a caregiver 24 hours/day given his high needs and inability to cook, clean and take care of his toileting routines. Pt will also need (A) with functional mobility and will be unable to perform this without (A). 6. Plate scoop- to increased pts functional (I) with his eating routine. 7. Caregiver training for ADLs and (A) with ADL routines 8. Ramp to get in and out of residence TREATMENT CODES/TIME: [id number], 10 minutes (09:00) Michelle Pearce, OTR/L [facility]
[2021-05-17] MEDS: Lidocaine 5% Patch 2 PATCH TP (11:15)
[2021-05-17] MEDS: HYDROmorphone 4 MG TAB PO (11:16)
--- NOTE | 2021-05-17 14:21 | CHAPLAIN ---
Favio had a visitor with him today when I stopped in. He said he's doing pretty well. He continues to watch [employer] on his iPad and usually has visitors each day. He also connects with family and friends by [employer]
[2021-05-17 15:23] VITALS: BP 120/71; PULSE 63; RESP 18; TEMP 36.9; O2SAT 96
--- NOTE | 2021-05-17 16:13 | PDOC.CMPRO ---
- If Service Date Differs Date of service: 05/17/21 Time of Service: 16:13 Care Management Progress Note S/O Bruce was sitting up in bed when CM met with him. His wounds continue to improve and the cough he had yesterday is better which he relates to being able to fully clear his throat. Bruce is hopeful to set up a meeting in person with his family, outside one day next week. ALCIDES advised him that his request was discussed with infection control yesterday, and his nurse today and moving forward Favio will find out a day and time that works for his family next week, CM will revisit on Thursday. In general, Favio expresses that he will feel better if he can get outside once in a while. Also, Favio reports that he is looking forward to his appointment scheduled in June with [facility]. ALCIDES continues to await notification from [facility] about an appointment, CM will follow up next week. 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 He has also applied for rent-controlled housing and has been told he is on the waiting list. Favio has an appointment with the [facility] at [facility] on June 18, 2021 at 1pm, coordinated by ALCIDES. Transport will be by ambulance, also coordinated by ALCIDES. ALCIDES will plan on huddling Thursday about how to facilitate safe family interactions outside, following the [facility] Covid Policy, which currently includes screening family members, masks and social distancing when possible.
[2021-05-17] MEDS: HYDROmorphone 2 MG/ML VIAL IVP (17:36)
[2021-05-17 20:43] VITALS: BP 115/70; PULSE 73; RESP 18; TEMP 36.8; O2SAT 96
[2021-05-17] MEDS: diphenhydrAMINE 25 MG CAP 50 MG PO (22:40)
[2021-05-17] MEDS: Melatonin 3 MG TAB 9 MG PO (22:40)
[2021-05-17] MEDS: diazePAM 5 MG TAB 2.5 MG PO (22:41)
[2021-05-17] MEDS: HYDROmorphone 2 MG/ML VIAL 3 MG IVP (22:41)
[2021-05-17 23:30] VITALS: BP 143/81; PULSE 73; RESP 18; TEMP 36.7; O2SAT 97
[2021-05-18] MEDS: VANCOMYCIN/WATER (PEG) 1.25 GM/250 ML BAG IV ×2 (02:16→14:34)
[2021-05-18] MEDS: LORazepam 0.5 MG TAB PO (02:16)
[2021-05-18] MEDS: Normal Saline Flush 10 ML SYR IVP ×2 (04:20→10:17)
[2021-05-18] MEDS: Acetaminophen 500 MG TAB 1000 MG PO ×3 (04:20→21:12)
[2021-05-18] MEDS: Dronabinol 2.5 MG CAP PO ×2 (06:43→11:32)
[2021-05-18] MEDS: Methylphenidate 10 MG TAB PO ×2 (06:43→11:32)
[2021-05-18 08:36] VITALS: BP 111/74; PULSE 66; RESP 18; TEMP 36.7; O2SAT 97
[2021-05-18] MEDS: Baclofen 10 MG TAB PO ×3 (08:56→21:13)
[2021-05-18] MEDS: DULoxetine 30 MG CAP 90 MG PO (08:56)
[2021-05-18] MEDS: Docusate Sodium 100 MG CAP PO ×3 (08:56→21:12)
[2021-05-18] MEDS: amLODIPine 5 MG TAB 10 MG PO (08:56)
[2021-05-18] MEDS: Magnesium Chloride 64 MG TABCR PO (08:56)
[2021-05-18] MEDS: Senna TAB 2 TAB PO ×2 (08:56→21:12)
[2021-05-18] MEDS: Spironolactone 25 MG TAB PO (08:56)
[2021-05-18] MEDS: Pantoprazole 40 MG TABCR PO (08:57)
[2021-05-18] MEDS: Gabapentin 300 MG CAP PO ×3 (08:57→21:12)
[2021-05-18] MEDS: Polyethylene Glycol 3350 17 GM PACKET PO (08:57)
[2021-05-18] MEDS: Protein Nutritional Supplement 16 GM 1 OUNCE PACKET PO ×2 (08:57→21:14)
[2021-05-18] MEDS: Normal Saline Flush 10 ML SYR 20 ML IVP ×2 (08:57→21:13)
[2021-05-18] MEDS: busPIRone 5 MG TAB 20 MG PO ×2 (08:57→21:12)
[2021-05-18] MEDS: Apixaban 5 MG TAB PO ×2 (08:57→21:12)
[2021-05-18] MEDS: Ascorbic Acid 500 MG TAB PO ×2 (08:57→21:12)
[2021-05-18] MEDS: Multivitamin w/Minerals TAB 1 TAB PO (08:57)
[2021-05-18] MEDS: HYDROmorphone 2 MG/ML VIAL IVP (10:17)
[2021-05-18] MEDS: Lidocaine 5% Patch 2 PATCH TP (10:18)
[2021-05-18 16:22] VITALS: BP 105/66; PULSE 68; RESP 18; TEMP 37; O2SAT 97
[2021-05-18] MEDS: Melatonin 3 MG TAB 9 MG PO (22:46)
[2021-05-18] MEDS: diphenhydrAMINE 25 MG CAP 50 MG PO (22:46)
[2021-05-18] MEDS: diazePAM 5 MG TAB 2.5 MG PO (22:46)
[2021-05-18] MEDS: HYDROmorphone 2 MG/ML VIAL 3 MG IVP (22:46)
[2021-05-18 22:52] VITALS: BP 100/70; PULSE 79; RESP 17; TEMP 36.8; O2SAT 96
[2021-05-19] MEDS: VANCOMYCIN/WATER (PEG) 1.25 GM/250 ML BAG IV ×2 (01:29→14:49)
[2021-05-19] MEDS: Normal Saline Flush 10 ML SYR IVP ×4 (01:29→21:30)
[2021-05-19] MEDS: LORazepam 0.5 MG TAB PO ×2 (02:18→21:34)
[2021-05-19] MEDS: Acetaminophen 500 MG TAB 1000 MG PO ×3 (04:43→21:34)
[2021-05-19 06:14] VITALS: BP 109/73; PULSE 71; RESP 17; TEMP 35.4; O2SAT 96
[2021-05-19] MEDS: Dronabinol 2.5 MG CAP PO ×2 (06:16→11:18)
[2021-05-19] MEDS: Methylphenidate 10 MG TAB PO ×2 (06:16→11:18)
[2021-05-19 09:20] VITALS: BP 129/76; PULSE 74; RESP 18; TEMP 36.4; O2SAT 97
[2021-05-19] MEDS: Polyethylene Glycol 3350 17 GM PACKET PO (09:23)
[2021-05-19] MEDS: Protein Nutritional Supplement 16 GM 1 OUNCE PACKET PO ×2 (09:23→21:29)
[2021-05-19] MEDS: Normal Saline Flush 10 ML SYR 20 ML IVP ×2 (09:24→21:29)
[2021-05-19] MEDS: DULoxetine 30 MG CAP 90 MG PO (09:24)
[2021-05-19] MEDS: Magnesium Chloride 64 MG TABCR PO (09:25)
[2021-05-19] MEDS: Pantoprazole 40 MG TABCR PO (09:25)
[2021-05-19] MEDS: Gabapentin 300 MG CAP PO ×3 (09:25→21:35)
[2021-05-19] MEDS: Baclofen 10 MG TAB PO ×3 (09:25→21:35)
[2021-05-19] MEDS: Multivitamin w/Minerals TAB 1 TAB PO (09:25)
[2021-05-19] MEDS: Docusate Sodium 100 MG CAP PO ×3 (09:25→21:34)
[2021-05-19] MEDS: busPIRone 5 MG TAB 20 MG PO ×2 (09:25→21:33)
[2021-05-19] MEDS: fentaNYL 50 MCG PATCH TD (09:25)
[2021-05-19] MEDS: Ascorbic Acid 500 MG TAB PO ×2 (09:25→21:35)
[2021-05-19] MEDS: amLODIPine 5 MG TAB 10 MG PO (09:25)
[2021-05-19] MEDS: Senna TAB 2 TAB PO ×2 (09:25→21:34)
[2021-05-19] MEDS: Apixaban 5 MG TAB PO ×2 (09:25→21:35)
[2021-05-19] MEDS: Spironolactone 25 MG TAB PO (09:25)
[2021-05-19] MEDS: Lidocaine 5% Patch 2 PATCH TP (09:26)
[2021-05-19] MEDS: Alteplase 2 MG VIAL IJ (13:00)
[2021-05-19 16:30] VITALS: BP 110/65; PULSE 78; RESP 16; TEMP 36.6; O2SAT 98
[2021-05-19] MEDS: diazePAM 5 MG TAB 2.5 MG PO (21:31)
[2021-05-19] MEDS: HYDROmorphone 2 MG/ML VIAL 3 MG IVP (21:31)
[2021-05-19] MEDS: Melatonin 3 MG TAB 9 MG PO (21:33)
[2021-05-19] MEDS: diphenhydrAMINE 25 MG CAP 50 MG PO (21:33)
[2021-05-20] MEDS: Normal Saline Flush 10 ML SYR IVP (02:46)
[2021-05-20] MEDS: VANCOMYCIN/WATER (PEG) 1.25 GM/250 ML BAG IV ×2 (02:47→13:44)
[2021-05-20 02:58] VITALS: BP 109/73; PULSE 84; RESP 18; TEMP 36.7; O2SAT 99
[2021-05-20] MEDS: Dronabinol 2.5 MG CAP PO ×2 (06:46→11:11)
[2021-05-20] MEDS: Pantoprazole 40 MG TABCR PO (06:46)
[2021-05-20] MEDS: Methylphenidate 10 MG TAB PO ×2 (06:46→11:11)
--- NOTE | 2021-05-20 08:09 | PCPN_ITS ---
Date of service: 05/20/21 Time of Service: 08:09 Assessment and Plan Assessment and plan (1) Acute osteomyelitis of sacrum: Status: Acute Assessment and plan: Continued on antibiotics (2) Decubitus ulcer of buttock, stage 4: Status: Acute Assessment and plan: Improving Qualifiers: Laterality: left Qualified Code(s): L89.324 - Pressure ulcer of left buttock, stage 4 (3) Neurogenic bowel: Status: Chronic (4) Major depressive disorder: Status: Chronic Assessment and plan: Presently much more accepting and optimistic of his future [facility] is a problem. He will require 24-hour care, wound care, etc. assistant women's rowing coach are working on placement in next steps. Qualifiers: Active/Remission status: currently active Major depression episode severity: moderate Major depression recurrence: single episode Qualified Code(s): F32.1 - Major depressive disorder, single episode, moderate (5) Quadriplegia: Status: Chronic (6) DVT (deep venous thrombosis): Status: Chronic Qualifiers: Affected thrombotic vein of extremity: femoral Chronicity: acute DVT location: lower extremity Laterality: right Qualified Code(s): I82.411 - Acute embolism and thrombosis of right femoral vein Subjective Subjective Interval history since last seen: Favio is a 56-year old man who unfortunately fell about 7 months ago had a neck injury that resulted in quadriplegia. He has had a andry road since then with sacral osteomyelitis, large wounds, need for suprapubic cath and colostomy which was complicated, etc. He states that he is in a much better mood. A few days ago he woke up and was able to move his left arm. He feels like it is waking up. He is having trouble controlling it but he is thrilled with this improvement. The right arm is also improving. He is able to use it to work his computer. He states that his wound to about half the size of what they were. He is happy with this. Case management, Annette, has been discussing next steps in his care. He has been in contact with [employer] to help to rebuild his home. There has not been any recent communication. He feels he could go to his friend (mother of his child) and stay if necessary. He knows that in the past placement has been difficult and that his care exceeded the ability of many of the rehab and nursing homes ability to care for him. There is still problems with his visitors. They just do not get along. This happens him. Exam Narrative Exam Narrative: Favio is in very good mood. As always he is polite. He was optimistic. He was moving his left arm and showing off his new abilities. This made him smile at times laugh because of his good fortune I did not look at his wounds, but did read wound care's notes Objective Last Vital Signs Temp 98.1 F 05/20/21 02:58 Pulse 84 05/20/21 02:58 Resp 18 05/20/21 02:58 BP 109/73 05/20/21 02:58 Pulse Ox 99 05/20/21 02:58 Laboratory Results - last 24 hr 05/19/21 13:36 Vancomycin Trough 17.0 Laboratory Tests 05/14/21 05/14/21 05/14/21 11:15 11:15 11:15 Hct ESR 32 H C-Reactive Protein 1.14 H Albumin 2.6 L 05/14/21 11:15 Hct 34.7 L ESR C-Reactive Protein Albumin
[2021-05-20 08:16] VITALS: BP 123/78; PULSE 73; RESP 18; TEMP 36.7; O2SAT 98
[2021-05-20] MEDS: Normal Saline Flush 10 ML SYR 20 ML IVP ×2 (09:21→21:16)
[2021-05-20] MEDS: Lidocaine 5% Patch 2 PATCH TP (09:22)
[2021-05-20] MEDS: Gabapentin 300 MG CAP PO ×3 (09:22→21:18)
[2021-05-20] MEDS: Apixaban 5 MG TAB PO ×2 (09:22→21:18)
[2021-05-20] MEDS: Protein Nutritional Supplement 16 GM 1 OUNCE PACKET PO ×2 (09:22→21:16)
[2021-05-20] MEDS: Polyethylene Glycol 3350 17 GM PACKET PO (09:22)
[2021-05-20] MEDS: HYDROmorphone 4 MG TAB PO ×3 (09:23→17:31)
[2021-05-20] MEDS: Docusate Sodium 100 MG CAP PO ×3 (09:23→21:18)
[2021-05-20] MEDS: Magnesium Chloride 64 MG TABCR PO (09:23)
[2021-05-20] MEDS: DULoxetine 30 MG CAP 90 MG PO (09:23)
[2021-05-20] MEDS: Senna TAB 2 TAB PO ×2 (09:23→21:19)
[2021-05-20] MEDS: Ascorbic Acid 500 MG TAB PO ×2 (09:23→21:18)
[2021-05-20] MEDS: Baclofen 10 MG TAB PO ×3 (09:23→21:18)
[2021-05-20] MEDS: Multivitamin w/Minerals TAB 1 TAB PO (09:24)
[2021-05-20] MEDS: Spironolactone 25 MG TAB PO (09:24)
[2021-05-20] MEDS: amLODIPine 5 MG TAB 10 MG PO (09:24)
[2021-05-20] MEDS: busPIRone 5 MG TAB 20 MG PO ×2 (09:24→21:18)
--- NOTE | 2021-05-20 09:48 | OT.INNT ---
Date of service: 05/20/21 Time of Service: 09:48 Occupational Therapy Notes OT attempted to see pt who was in a Reiki session. OT will resume services tomorrow. [facility]
[2021-05-20] MEDS: Acetaminophen 500 MG TAB 1000 MG PO ×2 (11:11→21:18)
--- NOTE | 2021-05-20 14:46 | CHAPLAIN ---
Favio was visiting with his dad, so I didn't stay long. He seemed in good spirits, and has a Facetime appointment with his counselor on . He's been watching [employer] on his iPad.
[2021-05-20 16:40] VITALS: BP 183/91; PULSE 77; RESP 18; TEMP 36.8; O2SAT 96
[2021-05-20 16:41] VITALS: BP 180/92
[2021-05-20] MEDS: LORazepam 0.5 MG TAB PO ×2 (17:09→21:18)
[2021-05-20] MEDS: diphenhydrAMINE 25 MG CAP 50 MG PO (21:17)
[2021-05-20] MEDS: diazePAM 5 MG TAB 2.5 MG PO (21:17)
[2021-05-20] MEDS: HYDROmorphone 2 MG/ML VIAL 3 MG IVP (21:17)
[2021-05-20] MEDS: Melatonin 3 MG TAB 9 MG PO (21:18)
[2021-05-20 23:30] VITALS: BP 116/77; PULSE 134; RESP 18; TEMP 36.8; O2SAT 97
[2021-05-20 23:47] VITALS: PULSE 120
[2021-05-21] MEDS: VANCOMYCIN/WATER (PEG) 1.25 GM/250 ML BAG IV ×2 (02:20→14:43)
[2021-05-21] MEDS: Normal Saline Flush 10 ML SYR IVP ×4 (02:21→22:03)
[2021-05-21] MEDS: Dronabinol 2.5 MG CAP PO ×2 (06:35→11:31)
[2021-05-21] MEDS: Pantoprazole 40 MG TABCR PO (06:35)
[2021-05-21] MEDS: Methylphenidate 10 MG TAB PO ×2 (06:35→11:31)
[2021-05-21 07:04] LABS: Abs Immature Grans 0.03 10^3/uL (0.0-0.06); Absolute Basophil Count 0.04 10^3/uL (0.0-0.2); Absolute Eosinophil Count 0.21 10^3/uL (0.0-0.7); Absolute Lymphocyte Count 1.15 10^3/uL (1.2-3.4); Absolute Monocyte Count 0.97 10^3/uL (0.1-0.8); Absolute Neutrophil Count 5.24 10^3/uL (1.2-6.7); Basophils % 0.5; Eosinophils % 2.7; HCT 42.5 % (40.0-50.0); HGB 13.9 g/dL (13.5-17.5); Immature Grans % 0.4; Lymphocytes % 15.1; MCHC 32.7 % (32.0-36.0); MCV 85.7 fL (80-95); MPV 10.3 fL (8.0-11.0); Monocytes % 12.7; Neutrophils % 68.6; Nucleated RBC 0 %; Platelet Count 242 10^3/uL (130-400); RBC 4.96 10^6/uL (4.36-5.78); RDW 16.5 % (11.8-14.1); RDW-SD 51.1 fL; WBC 7.64 10^3/uL (4.4-10.8)
[2021-05-21 07:07] LABS: ESR 48 mm/hr (0-20)
[2021-05-21 07:16] VITALS: BP 108/72; PULSE 110; RESP 19; TEMP 37.1; O2SAT 99
[2021-05-21 07:16] LABS: ALT 27 U/L (16-63); AST 18 U/L (15-37); Albumin 3.3 g/dL (3.4-5.0); Alkaline Phosphatase 80 U/L (46-116); Anion Gap 8.8 mmol/L (3-11); BUN 33 mg/dL (7-18); Bilirubin, Total 0.3 mg/dL (0.2-1.0); C-Reactive Protein 2.05 mg/dL (0.0-0.3); CO2 24.2 mmol/L (21.0-32.0); CREATININE 0.8 mg/dL (0.70-1.30); Calcium 11.2 mg/dL (8.5-10.1); Chloride 107 mmol/L (98-107); Glucose 115 mg/dL (74-106); Potassium 4.2 mmol/L (3.5-5.1); Sodium 140 mmol/L (136-145); Total Protein 7.3 g/dL (6.4-8.2)
--- NOTE | 2021-05-21 08:08 | PGE_ITS ---
Date of Service Date of service: 05/21/21 Time of Service: 08:08 Assessment and Plan Assessment and plan (1) Neurogenic bladder: Status: Chronic Assessment and plan: Catheter will need changing monthly. Subjective Subjective Interval history since last seen: This is a 86-year-old gentleman who has a history of a neurogenic bladder. He has an indwelling suprapubic tube that is changed monthly. I have been asked to change the tube while he is hospitalized. Objective Last Vital Signs Temp 37.1 C 05/21/21 07:16 Pulse 110 H 05/21/21 07:16 Resp 19 05/21/21 07:16 BP 108/72 05/21/21 07:16 Pulse Ox 99 05/21/21 07:16 Laboratory Results - last 24 hr 05/21/21 05/21/21 05/21/21 06:43 06:43 06:43 WBC 7.64 RBC 4.96 Hgb 13.9 Hct 42.5 MCV 85.7 MCH 28.0 MCHC 32.7 RDW 16.5 H Plt Count 242 MPV 10.3 Immature Gran % 0.4 Neutrophils % 68.6 Lymphocytes % 15.1 Monocytes % 12.7 Eosinophils % 2.7 Basophils % 0.5 Nucleated RBC % 0 Absolute Neutrophils 5.24 Absolute Lymphocytes 1.15 L Absolute Monocytes 0.97 H Absolute Eosinophils 0.21 Absolute Basophils 0.04 ESR 48 H Sodium 140 Potassium 4.2 Chloride 107 Carbon Dioxide 24.2 Anion Gap 8.8 BUN 33 H Creatinine 0.8 Estimated GFR/1.73 m2 >= 60.00 Glucose 115 H Calcium 11.2 H Total Bilirubin 0.3 AST 18 ALT 27 Alkaline Phosphatase 80 C-Reactive Protein 2.05 H Total Protein 7.3 Albumin 3.3 L Insert Bladder Catheter Text: And was seen at his bedside. His indwelling catheter balloon was deflated and the catheter was removed. The suprapubic site was then prepped with Betadine. A 16 [place] catheter was passed through the suprapubic tract into the bladder. Cloudy urine was obtained in the catheter and drainage bag. The catheter balloon was inflated with 10 cc of sterile water. The catheter was hooked to gravity drainage. He tolerated the procedure well.
[2021-05-21] MEDS: Spironolactone 25 MG TAB PO (08:44)
[2021-05-21] MEDS: Ascorbic Acid 500 MG TAB PO ×2 (08:44→21:45)
[2021-05-21] MEDS: Apixaban 5 MG TAB PO ×2 (08:45→21:47)
[2021-05-21] MEDS: Docusate Sodium 100 MG CAP PO ×3 (08:45→21:47)
[2021-05-21] MEDS: busPIRone 5 MG TAB 20 MG PO ×2 (08:45→21:47)
[2021-05-21] MEDS: Gabapentin 300 MG CAP PO ×3 (08:45→21:45)
[2021-05-21] MEDS: Senna TAB 2 TAB PO ×2 (08:46→21:47)
[2021-05-21] MEDS: DULoxetine 30 MG CAP 90 MG PO (08:46)
[2021-05-21] MEDS: amLODIPine 5 MG TAB 10 MG PO (08:46)
[2021-05-21] MEDS: Baclofen 10 MG TAB PO ×3 (08:47→21:47)
[2021-05-21] MEDS: Polyethylene Glycol 3350 17 GM PACKET PO (08:47)
[2021-05-21] MEDS: Magnesium Chloride 64 MG TABCR PO (08:47)
[2021-05-21] MEDS: Multivitamin w/Minerals TAB 1 TAB PO (08:47)
[2021-05-21] MEDS: Protein Nutritional Supplement 16 GM 1 OUNCE PACKET PO ×2 (08:47→21:55)
[2021-05-21] MEDS: Normal Saline Flush 10 ML SYR 20 ML IVP ×2 (08:48→21:48)
--- NOTE | 2021-05-21 09:45 | OTTR_ITS ---
Date of service: 05/21/21 Time of Service: 09:15 Occupational Therapy Notes Occupational Therapy Inpatient Treatment Note Date: 05/21/21 PRECAUTIONS: Fall, standard, DNR/DNI SUBJECTIVE: Pt was lying in bed when OT arrived, he is agreeable to OT session and notes that he is tired but feeling better. OBJECTIVE: PAIN:c/o pain in (B) UE (L) > (R) Manual Therapy [id number]: OT performed joint blocking techniques, manual mobilization to pts (B) UE with PROM to pts wrists, forearms and digits. Functionally pt performed this with increased (I) with his grasp and release. OT performed AA ROM with tone reduction techniques needed in his (L) UE which is limiting his use of his functional (I) but he has good hand control today. OT and pt go over goals and care planning with discussion on what OT goals are moving forward. OT recommends: 1. Hospital bed with alternating pressure for increased care of pts wounds and medically necessary due to pts decreased functional mobility and high risk of wounds. 2. A christa lift for transportation to and from bed to wheelchair etc.. to increase pts safety and pressure relief on his body during transfers. 3. His electric wheelchair transferred from [facility]- pt reports that he has an electric wheelchair at the facility and they are waiting for him to return home to get this delivered. 4. [place] cuff- this adaptive equipment will be utilized to maximize pts functional (I) in his ADL/IADL routines but supporting his decreased hand function and control 5. OT recommends that pt has HH OT/PT as well as a caregiver 24 hours/day given his high needs and inability to cook, clean and take care of his toileting routines. Pt will also need (A) with functional mobility and will be unable to perform this without (A). 6. Plate scoop- to increased pts functional (I) with his eating routine. 7. Caregiver training for ADLs and (A) with ADL routines 8. Ramp to get in and out of residence TREATMENT CODES/TIME: [id number], 20 minutes (09:15) Michelle Pearce, OTR/L [facility]
[2021-05-21] MEDS: Acetaminophen 500 MG TAB 1000 MG PO ×2 (11:31→21:45)
[2021-05-21] MEDS: Lidocaine 5% Patch 2 PATCH TP (11:34)
[2021-05-21] MEDS: Normal Saline 500 ML 30 ML IV (14:43)
--- NOTE | 2021-05-21 15:23 | CMPROGNOTE_ITS ---
- If Service Date Differs Date of service: 05/21/21 Time of Service: 15:23 Care Management Progress Note An interdisciplinary huddle was held today to discuss Favio's plan of care and progress. Attending: Ruby Ramirez - Director of Med-Surg Shilpa Hendrix - CHYNA Puente - wound nurse Nichol - SWETHA Solorio - Physical Therapist Michelle Pearce - OT Annette Loya - Java Manager Katiuska Cotter - ALCIDES Favio has been at [facility] for 15 weeks following a spinal cord injury that occurred on 10/26/20. He spent several weeks at [facility] before transferring to [facility] in [place]. From [place], Favio went to [facility] before coming to [facility]. Favio's injuries have left him as a functional quadriplegic. He developed stage IV decubitus ulcers on his ischial tuberosities and required several surgeries. He also had an ostomy performed which developed complications requiring additi onal surgeries. Favio has been receiving intensive wound care in addition to PT and OT. OT has been focusing on supporting Favio with feeding himself using special eating utensils. The team determined that it would be helpful if nursing could consistently set the expectation that Favio participate in feeding himself at least 50% of every meal. PT has not been getting Favio up on the side of the bed for the past few weeks because of the wound vacs. In preparation for the next stage of his rehab, where Favio will hopefully be using his motorized wheelchair, PT will resume balance and sitting exercises with Favio. Wound care has weighed in stating that this is acceptable as his wounds are healing. Unfortunately, Favio's insurance will not allow the wheelchair that was made for him to be delivered until discharge. This will hamper the ability to have PT work on transfers with him using his own equipment. Favio's family has requested that Favio be able to get out of bed into a chair and be taken outside at least once a week. He has only been OOB twice. Discussion ensued and the need for a special order cushion for his chair was identified. Kellie from PT offered to measure for this and will provide Ruby with the specifics so that it can be ordered. nursing home plan: Favio and Nicki continue to discuss the possibility that Favio will go to Nicki's home at some point to live. 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 She would not be a ble to manage Favio's complicated care needs on her own. CM has repeatedly suggested that Favio go to a SNF for additional rehab before attempting to live independently in the community. Early in his hospital stay Favio was approved for admission to [facility] pending LT approval. This may still be a viable option. On June 18, 2021 Favio is scheduled to go to the [facility] for evaluation and EMG testing. It is possible that he may be a candidate for surgery that could improve his ability to use his hands. This could positively impact his recovery process and ability to gain independence. ALCIDES has been in communication with the family regarding the LT medicaid application. Unfortunately the original application was denied last week. CM determined that that application can be resubmitted with minor changes and the addition of missing documents. Hopefully that will expedite the process.
[2021-05-21 15:26] VITALS: BP 111/71; PULSE 79; RESP 18; TEMP 36.7; O2SAT 96
[2021-05-21] MEDS: LORazepam 0.5 MG TAB PO (17:00)
[2021-05-21] MEDS: HYDROmorphone 2 MG/ML VIAL IVP (17:00)
--- NOTE | 2021-05-21 18:46 | WOUNDCONS ---
- If Service Date Differs Date of service: 05/21/21 Time of Service: 18:46 Wound Initial Evaluation Narrative: Mr. Velasquez seen for weekly re-evaluation and photos. Gives verbal consent. Wounds have decreased in size. See photos below for comparison. Per Favio he is eating well. Per documentation he has been eating 75-100% of his meals. Protein on his meal trays was doubled 3 weeks ago, this is probably a factor in wound improvement. Pt's calorie and protein demand high d/t wounds. Request nutrition continues to follow Pt. Pt educated on importance of continuing to eat his meals to reach protein and calorie goal for wound healing. Arjo bed continues to be rounded on each shift. No issues to report. Alternating air setting is on @ this time. Right Ischial wound had wound vac restarted 14 days ago. Slough has decreased, about 5% remains. SIGNIFICANT TUNNELING/UNDERMINING NOTED from 12-2 o'clock AND from 4-8 oclock. 2 PIECES OF WHITE FOAM (total in wound) used in those those areas. Black foam used, cut in half to decrease depth since wound is getting smaller. Wound also window paned to protect periwound skin. Left Ischial wound appears somewhat macerated. Red non-granular tissue noted to wound base. No slough is seen in wound bed. Smaller than 7 days ago. Continue wound vac @ this time. Of note tunneling still present @ 11 o'clock, white foam being used. Also wound edges seem to be making contact with black foam based on appearance, window pane technique with drape used to protect serge wound @ this time. Right lateral pinky toe DTI still present. not open. recommend skin prep and offloading to area @ this time. - Wound Left Ischial Tuberosities Wound Length: 1.8 cm (2.1cm tunnel @ 11 o'clock) Wound Width: 1.8 cm Wound Depth: 1.5 cm Right Ischial Tuberosity Wound Length: 1.5 cm (2cm tunnel 12-2 oclock) Wound Width: 1.5 cm (2.2 cm tunnel from 4-8 oclock) Wound Depth: 1.5 cm - Recomendation Recomendation:: Recommend continuing current ordered Tx. Physcian/Nurse Practioner Notified: No
[2021-05-21 21:38] VITALS: BP 96/59; PULSE 76; RESP 17; TEMP 35.6
[2021-05-21] MEDS: diazePAM 5 MG TAB 2.5 MG PO (21:48)
[2021-05-21] MEDS: Melatonin 3 MG TAB 9 MG PO (21:48)
[2021-05-21] MEDS: diphenhydrAMINE 25 MG CAP 50 MG PO (21:48)
[2021-05-21] MEDS: HYDROmorphone 2 MG/ML VIAL 3 MG IVP (22:03)
[2021-05-21 23:02] VITALS: BP 89/55; PULSE 65; RESP 18; TEMP 35.4; O2SAT 93
[2021-05-22] MEDS: VANCOMYCIN/WATER (PEG) 1.25 GM/250 ML BAG IV ×2 (02:03→14:15)
[2021-05-22] MEDS: Dronabinol 2.5 MG CAP PO ×2 (06:35→10:33)
[2021-05-22] MEDS: Methylphenidate 10 MG TAB PO ×2 (06:35→10:33)
[2021-05-22 07:41] VITALS: BP 107/67; PULSE 64; RESP 14; TEMP 34.5; O2SAT 98
[2021-05-22] MEDS: Magnesium Chloride 64 MG TABCR PO (08:35)
[2021-05-22] MEDS: Senna TAB 2 TAB PO ×2 (08:36→22:11)
[2021-05-22] MEDS: Baclofen 10 MG TAB PO ×3 (08:36→22:11)
[2021-05-22] MEDS: DULoxetine 30 MG CAP 90 MG PO (08:36)
[2021-05-22] MEDS: amLODIPine 5 MG TAB 10 MG PO (08:36)
[2021-05-22] MEDS: Pantoprazole 40 MG TABCR PO (08:37)
[2021-05-22] MEDS: Ascorbic Acid 500 MG TAB PO ×2 (08:37→22:11)
[2021-05-22] MEDS: busPIRone 5 MG TAB 20 MG PO ×2 (08:37→22:10)
[2021-05-22] MEDS: Multivitamin w/Minerals TAB 1 TAB PO (08:37)
[2021-05-22] MEDS: Docusate Sodium 100 MG CAP PO ×3 (08:38→22:11)
[2021-05-22] MEDS: Gabapentin 300 MG CAP PO ×3 (08:38→22:11)
[2021-05-22] MEDS: Apixaban 5 MG TAB PO ×2 (08:38→22:11)
[2021-05-22] MEDS: Spironolactone 25 MG TAB PO (08:38)
[2021-05-22] MEDS: Normal Saline Flush 10 ML SYR 20 ML IVP ×2 (08:39→22:13)
[2021-05-22] MEDS: Protein Nutritional Supplement 16 GM 1 OUNCE PACKET PO ×2 (08:39→22:11)
[2021-05-22] MEDS: Polyethylene Glycol 3350 17 GM PACKET PO (08:39)
[2021-05-22 08:40] VITALS: O2SAT 97
--- NOTE | 2021-05-22 09:50 | OTTR_ITS ---
Date of service: 05/22/21 Time of Service: 09:25 Occupational Therapy Notes Occupational Therapy Inpatient Treatment Note Date: 05/22/21 PRECAUTIONS: Fall, standard, DNR/DNI SUBJECTIVE: Pt was lying in bed when OT arrived, he is agreeable to OT session. OBJECTIVE: PAIN:c/o pain in (B) UE (L) > (R) Manual Therapy [id number]: OT performed joint blocking techniques, manual mobilization to pts (B) UE with PROM to pts wrists, forearms and digits. Functionally pt performed this with increased (I) with his grasp and release. OT performed AROM with tone reduction techniques needed in his (L) UE which is limiting his use of his functional (I) but he has good hand control today. OT and pt went over eating routines and functional (I) in his ADL/IADL routines. He is receptive to this. He did attempt eating this morning but he doesn't have his silverware here any more. OT emphasizes the importance of having these here and pt is going to call Nicki to get them back here. OT recommends: 1. Hospital bed with alternating pressure for increased care of pts wounds and medically necessary due to pts decreased functional mobility and high risk of wounds. 2. A christa lift for transportation to and from bed to wheelchair etc.. to increase pts safety and pressure relief on his body during transfers. 3. His electric wheelchair transferred from [facility]- pt reports that he has an electric wheelchair at the facility and they are waiting for him to return home to get this delivered. 4. Sheridan cuff- this adaptive equipment will be utilized to maximize pts functional (I) in his ADL/IADL routines but supporting his decreased hand function and control 5. OT recommends that pt has HH OT/PT as well as a caregiver 24 hours/day given his high needs and inability to cook, clean and take care of his toileting routines. Pt will also need (A) with functional mobility and will be unable to perform this without (A). 6. Plate scoop- to increased pts functional (I) with his eating routine. 7. Caregiver training for ADLs and (A) with ADL routines 8. Ramp to get in and out of residence TREATMENT CODES/TIME: [id number], 20 minutes (09:25) Michelle Pearce, OTR/L [facility]
[2021-05-22] MEDS: fentaNYL 50 MCG PATCH TD (10:34)
[2021-05-22] MEDS: Normal Saline Flush 10 ML SYR IVP ×3 (10:38→17:07)
[2021-05-22] MEDS: Lidocaine 5% Patch 2 PATCH TP (10:38)
[2021-05-22] MEDS: Acetaminophen 500 MG TAB 1000 MG PO ×2 (11:49→22:10)
[2021-05-22 16:16] VITALS: BP 120/75; PULSE 71; RESP 17; TEMP 36.5; O2SAT 97
[2021-05-22] MEDS: HYDROmorphone 2 MG/ML VIAL IVP (17:07)
[2021-05-22 22:00] VITALS: O2SAT 97
[2021-05-22 22:04] VITALS: BP 118/73; PULSE 69; RESP 18; TEMP 35.9; O2SAT 97
[2021-05-22] MEDS: diazePAM 5 MG TAB 2.5 MG PO (22:12)
[2021-05-22] MEDS: Melatonin 3 MG TAB 9 MG PO (22:12)
[2021-05-22] MEDS: diphenhydrAMINE 25 MG CAP 50 MG PO (22:12)
[2021-05-22] MEDS: HYDROmorphone 2 MG/ML VIAL 3 MG IVP (22:14)
[2021-05-23] MEDS: VANCOMYCIN/WATER (PEG) 1.25 GM/250 ML BAG IV ×2 (01:58→14:12)
[2021-05-23] MEDS: LORazepam 0.5 MG TAB PO (02:13)
[2021-05-23 04:18] VITALS: O2SAT 97
[2021-05-23] MEDS: Normal Saline Flush 10 ML SYR IVP ×3 (04:35→14:14)
[2021-05-23] MEDS: Acetaminophen 500 MG TAB 1000 MG PO ×3 (04:35→19:28)
[2021-05-23] MEDS: Methylphenidate 10 MG TAB PO ×2 (06:40→11:04)
[2021-05-23] MEDS: Dronabinol 2.5 MG CAP PO ×2 (06:40→11:03)
[2021-05-23 07:36] VITALS: BP 99/61; PULSE 56; RESP 18; TEMP 36.2; O2SAT 98
[2021-05-23 08:15] VITALS: BP 113/70; PULSE 58; RESP 16; TEMP 36.6; O2SAT 98
--- NOTE | 2021-05-23 08:22 | PDOC.CMPRO ---
- If Service Date Differs Date of service: 05/23/21 Time of Service: 08:22 Care Management Progress Note S/O:Favio continues to improve. All of his wounds are healing well and are all below 2cm in size. On admission one was 6.6 by 4.6 cm and the other was 4.5 by 3.3 cm. Favio reports that he is experiencing increased sensation in his right foot and a couple of his toes. He has also stated and demonstrated that he can move the middle finger on his right hand. The prison Medicaid application submitted by Favio's family was denied last week as some of the required financial documents were not submitted by the deadline established. The application was updated and resubmitted with all of the necessary financial information on Thursday05/21/21. A: Favio is a 56 year old man admitted to [facility] on 02/22/21 with constipation. He has since developed osteomyelitis and has had a colostomy. P:Favio is waiting for LTM approval in order to transition back to the community. A revised application was submitted on Thursday with all necessary information. CM will continue to support Favio and his discharge planning concerns.
[2021-05-23] MEDS: Multivitamin w/Minerals TAB 1 TAB PO (08:23)
[2021-05-23] MEDS: Senna TAB 2 TAB PO ×2 (08:23→19:28)
[2021-05-23] MEDS: DULoxetine 30 MG CAP 90 MG PO (08:23)
[2021-05-23] MEDS: Gabapentin 300 MG CAP PO ×3 (08:23→19:26)
[2021-05-23] MEDS: Docusate Sodium 100 MG CAP PO ×3 (08:24→19:27)
[2021-05-23] MEDS: Baclofen 10 MG TAB PO ×3 (08:24→19:27)
[2021-05-23] MEDS: Ascorbic Acid 500 MG TAB PO ×2 (08:24→19:27)
[2021-05-23] MEDS: busPIRone 5 MG TAB 20 MG PO ×2 (08:24→19:28)
[2021-05-23] MEDS: Pantoprazole 40 MG TABCR PO (08:24)
[2021-05-23] MEDS: Magnesium Chloride 64 MG TABCR PO (08:24)
[2021-05-23] MEDS: Protein Nutritional Supplement 16 GM 1 OUNCE PACKET PO ×2 (08:25→19:29)
[2021-05-23] MEDS: Apixaban 5 MG TAB PO ×2 (08:25→19:28)
[2021-05-23] MEDS: Spironolactone 25 MG TAB PO (08:25)
[2021-05-23] MEDS: Polyethylene Glycol 3350 17 GM PACKET PO (08:25)
[2021-05-23] MEDS: amLODIPine 5 MG TAB 10 MG PO (08:25)
[2021-05-23] MEDS: Normal Saline Flush 10 ML SYR 20 ML IVP ×2 (08:27→19:30)
[2021-05-23] MEDS: Lidocaine 5% Patch 2 PATCH TP (11:04)
--- NOTE | 2021-05-23 11:16 | PT.INTREAT ---
Date of service: 05/24/21 Time of Service: 11:16 PT Notes Visit Reasons: Osteomyelitis Inpatient Physical Therapy Treatment Note [facility] Date: 05/23/2021 PRECAUTIONS: High risk for skin breakdown. C6-C7 incomplete quadriplegia. SUBJECTIVE: Patient is agreeable with proceeding with edge of bed training today. He was leary at the start and made sure that nobody pulls on him under his arms. He became anxious initially, feeling like he would fall forward but he was assured that he will not with PT and PAINTINGS CONSERVATOR guarding him. States that he and Nicki have been doing good with gentle passive ranging of B LE on Thursday and Thursday, still reports that he has the same amount of spasms as before during those times. Reports that his wounds are healing well. OBJECTIVE: Minimal spasms during mobility training compared to previous session. Wound vacuum on B gluteal/sacral decubiti. PAIN: Minimal discomfort from increased spasms in B UE and trunk. BED MOBILITY/TRANSFERS Total assist EDGE OF BED STATIC SITTING: Required moderate assist x 2 to maintain static sitting at edge of bed for about 10-15 minutes with increased tendency for patient to lean back if assistance is not provided. Nurse Karolyn worked on morning care and managed to wash patient's back and front, brush patient's teeth, and assist with changing his hospital gown. GAIT: Non-ambulatory CAREGIVER EDUCATION: Nicki demonstrates 100% mastery of B LE passive ranging and has been doing well on her own with the patient with no issues. She has been instructed to coordinate with the nurse before she intends to come and do the ranging with the patient in order to determine need medication to reduce discomfort and spasm. She also have been educated on positioning B LE to reduce plantarflexion contracture in B sides. ASSESSMENT: Consultation with wound nurse Ernandez was done regarding any potential issue with working on edge of bed for trunk stability and sitting balance/tolerance against the recovery of his long-standing sacral/gluteal decubiti. Nurse Ernandez gave the okay for this and provided recommendations with changing bed settings for safety, comfort, and decreased shear. Originally when patient was admitted to this hopsital from the SNF, sitting balance and tolerance were worked on with a functional goal of increasing ability to tolerate sitting on motorized wheelchair that was thought will be delivered to the hospital. However, edge of bed sitting had been deferred as patient had had a series of GI surgeries and worsening of bilateral decubiti. Patient also has complained of increased B shoulder pain with increased activity level. When it was found out that wheelchair was not going to be delivered and patient could not tolerate increase in activity level with no functional goal, PT decided to pull out with a remaining goal of establishing a functional maintenance program for passive ranging and positioning. Chanelleabdulkadir Caceres has been able to perform passive ranging with patient for 2 occasions now. Prognosis for achieving any improvement with trunk stability and tolerance is poor but will continue to work with patient to see if tolerance for static sitting will improve. POSITIONING GOAL: next 1-2 weeks 1. Patient will be able to tolerate an hour of edge of bed sitting with minimal assistance of 2 caregivers without increase in pain report and without SOB. 2. Patient will be able to perform AAROM on B UE while seated at edge of bed incorporating breathing activities to maximize respiratory capacity and prevent pulmonary complications. 3. Patient will be able to perform head and cervical AROM while seated at edge of bed to minimize B shoulder pain/neck pain. PLAN: 1. Coordinated with RICHELLE Carrizales regarding procurement of 24-inch wide and 20-inch deep 2-inch gel cushion to be used while patient is to be seated on reclining chair to minimize further skin breakdown while maximizing cardiac, pulmonary, and gastrointestinal functions in the upright position. 2. Will work with nursing staff to ensure optimal positioning while in reclining chair to reduce fall risk and further skin breakdown. TREATMENT CODE/TIME: 16469 x 39 minutes beginning at 11:16 AM.
[2021-05-23] MEDS: HYDROmorphone 2 MG/ML VIAL IVP (12:02)
[2021-05-23 15:34] VITALS: BP 105/63; PULSE 60; RESP 18; TEMP 36.6; O2SAT 97
[2021-05-23] MEDS: diphenhydrAMINE 25 MG CAP 50 MG PO (21:28)
[2021-05-23] MEDS: diazePAM 5 MG TAB 2.5 MG PO (21:28)
[2021-05-23] MEDS: Melatonin 3 MG TAB 9 MG PO (21:28)
[2021-05-23] MEDS: HYDROmorphone 2 MG/ML VIAL 3 MG IVP (21:29)
[2021-05-23 23:10] VITALS: BP 113/68; PULSE 68; RESP 16; TEMP 36.8; O2SAT 97
[2021-05-24] MEDS: VANCOMYCIN/WATER (PEG) 1.25 GM/250 ML BAG IV ×2 (02:08→13:52)
[2021-05-24] MEDS: Normal Saline 500 ML 30 ML IV (02:09)
[2021-05-24] MEDS: Normal Saline Flush 10 ML SYR IVP ×3 (02:09→13:53)
[2021-05-24] MEDS: Acetaminophen 500 MG TAB 1000 MG PO ×3 (04:57→21:01)
[2021-05-24] MEDS: Dronabinol 2.5 MG CAP PO ×2 (06:57→11:07)
[2021-05-24] MEDS: Methylphenidate 10 MG TAB PO ×2 (06:57→11:08)
[2021-05-24 07:43] VITALS: BP 116/72; PULSE 65; RESP 16; TEMP 36.6; O2SAT 97
[2021-05-24] MEDS: Gabapentin 300 MG CAP PO ×3 (09:11→21:03)
[2021-05-24] MEDS: Multivitamin w/Minerals TAB 1 TAB PO (09:11)
[2021-05-24] MEDS: Senna TAB 2 TAB PO ×2 (09:11→21:00)
[2021-05-24] MEDS: DULoxetine 30 MG CAP 90 MG PO (09:11)
[2021-05-24] MEDS: Magnesium Chloride 64 MG TABCR PO (09:11)
[2021-05-24] MEDS: Pantoprazole 40 MG TABCR PO (09:11)
[2021-05-24] MEDS: Baclofen 10 MG TAB PO ×3 (09:12→21:04)
[2021-05-24] MEDS: busPIRone 5 MG TAB 20 MG PO ×2 (09:12→21:03)
[2021-05-24] MEDS: Spironolactone 25 MG TAB PO (09:12)
[2021-05-24] MEDS: Ascorbic Acid 500 MG TAB PO ×2 (09:12→21:04)
[2021-05-24] MEDS: Apixaban 5 MG TAB PO ×2 (09:12→21:00)
[2021-05-24] MEDS: amLODIPine 5 MG TAB 10 MG PO (09:12)
[2021-05-24] MEDS: Lidocaine 5% Patch 2 PATCH TP (09:13)
[2021-05-24] MEDS: Docusate Sodium 100 MG CAP PO ×3 (09:13→21:03)
[2021-05-24] MEDS: Polyethylene Glycol 3350 17 GM PACKET PO (09:14)
[2021-05-24] MEDS: Protein Nutritional Supplement 16 GM 1 OUNCE PACKET PO ×2 (09:14→21:04)
[2021-05-24] MEDS: Normal Saline Flush 10 ML SYR 20 ML IVP ×2 (09:14→21:04)
[2021-05-24] MEDS: LORazepam 0.5 MG TAB PO (09:32)
[2021-05-24 15:25] VITALS: BP 133/77; PULSE 75; RESP 18; TEMP 36.9; O2SAT 97
[2021-05-24] MEDS: Melatonin 3 MG TAB 9 MG PO (21:02)
[2021-05-24] MEDS: diphenhydrAMINE 25 MG CAP 50 MG PO (21:02)
[2021-05-24] MEDS: diazePAM 5 MG TAB 2.5 MG PO (21:03)
[2021-05-24] MEDS: HYDROmorphone 2 MG/ML VIAL 3 MG IVP (21:05)
[2021-05-24 23:29] VITALS: BP 101/62; PULSE 64; RESP 16; TEMP 36.5; O2SAT 98
[2021-05-25] MEDS: VANCOMYCIN/WATER (PEG) 1.25 GM/250 ML BAG IV ×2 (01:37→14:45)
[2021-05-25] MEDS: Normal Saline Flush 10 ML SYR IVP ×4 (01:38→17:54)
[2021-05-25] MEDS: Acetaminophen 500 MG TAB 1000 MG PO ×3 (03:53→20:52)
[2021-05-25 07:37] VITALS: BP 136/75; PULSE 68; RESP 16; TEMP 36.4; O2SAT 97
[2021-05-25] MEDS: Normal Saline Flush 10 ML SYR 20 ML IVP ×2 (08:03→20:54)
[2021-05-25] MEDS: Polyethylene Glycol 3350 17 GM PACKET PO (08:04)
[2021-05-25] MEDS: Protein Nutritional Supplement 16 GM 1 OUNCE PACKET PO ×2 (08:04→20:53)
[2021-05-25] MEDS: Senna TAB 2 TAB PO ×2 (08:04→20:52)
[2021-05-25] MEDS: Multivitamin w/Minerals TAB 1 TAB PO (08:05)
[2021-05-25] MEDS: busPIRone 5 MG TAB 20 MG PO ×2 (08:05→20:50)
[2021-05-25] MEDS: Pantoprazole 40 MG TABCR PO (08:05)
[2021-05-25] MEDS: Spironolactone 25 MG TAB PO (08:05)
[2021-05-25] MEDS: Magnesium Chloride 64 MG TABCR PO (08:06)
[2021-05-25] MEDS: Gabapentin 300 MG CAP PO ×3 (08:06→20:52)
[2021-05-25] MEDS: DULoxetine 30 MG CAP 90 MG PO (08:06)
[2021-05-25] MEDS: Ascorbic Acid 500 MG TAB PO ×2 (08:06→20:51)
[2021-05-25] MEDS: Baclofen 10 MG TAB PO ×3 (08:06→20:52)
[2021-05-25] MEDS: amLODIPine 5 MG TAB 10 MG PO (08:07)
[2021-05-25] MEDS: Dronabinol 2.5 MG CAP PO ×2 (08:07→10:57)
[2021-05-25] MEDS: Docusate Sodium 100 MG CAP PO ×3 (08:07→20:51)
[2021-05-25] MEDS: Apixaban 5 MG TAB PO ×2 (08:07→20:52)
[2021-05-25] MEDS: Methylphenidate 10 MG TAB PO ×2 (08:07→10:57)
[2021-05-25] MEDS: HYDROmorphone 2 MG/ML VIAL IVP (09:11)
[2021-05-25] MEDS: fentaNYL 50 MCG PATCH TD (10:54)
--- NOTE | 2021-05-25 14:07 | PGE_ITS ---
Date of Service Date of service: 05/25/21 Time of Service: 14:07 Assessment and Plan Assessment and plan (1) Acute osteomyelitis of sacrum: Start date: 05/25/21 Start time: 14:12 Status: Acute Assessment and plan: Continue vanco x 6 weeks doing well. Unable to visualize wound as wound vac in place, He also will be on cipro for 6 weeks for osteo. Dilaudid for drsg changes IV or PO per patient discretion he will likely have acute on chronic osteo of sacrum requiring doses of vanco per previous conversation with ID. He has appt on Jun 18 with [facility] trying for plastics and wound for possible wound flap (2) Major depressive disorder: Start date: 05/25/21 Start time: 14:13 Status: Chronic Assessment and plan: In better spirits. We discussed increasing his gabapentin at night, for sleep and getting him off IV dilaudid, decreased IV dilaudid, added PO for sleep, his appetite is better, overall spirits are better. Qualifiers: Major depression recurrence: single episode Active/Remission status: currently active Major depression episode severity: moderate Qualified Code(s): F32.1 - Major depressive disorder, single episode, moderate (3) Quadriplegia: Start date: 05/25/21 Start time: 14:17 Status: Chronic Assessment and plan: cont. P.T. to work with patient He is able to move his middle finger on his right hand slightly which is new for him He has appt with [facility] on June 18 for paralysis center to determine if surgery is an option (4) DVT prophylaxis: Start date: 05/25/21 Start time: 14:18 Status: Chronic Assessment and plan: On apixaban for RLE DVT (5) Constipation: Start date: 05/25/21 Start time: 14:18 Status: Chronic Assessment and plan: Continue bowel regimen. Ostomy producing soft stool. Continue regimen discussed with Dr. Murillo Qualifiers: Constipation type: other constipation type Qualified Code(s): K59.09 - Other constipation Subjective Subjective Patient reports: no new complaints Interval history since last seen: He states he has been feeling good. Will increase gabapentin to 600 mg at HS decrease dilaudid IV to 1.5 increase po to 2 mg at hs to titrate off IV dilaudid. He is able to move his middle right middle finger slightly, and feed himself, now. He is feeling good about the small milestones that he is making. He as appt with [facility] on Jun 18. Wounds continue to slowly heal per nursing. Exam Narrative Exam Narrative: Micha is alert and conversant w/ me. His spirits are up and he is doing well. Lungs are clear heart is regular Abdomen soft and nondistended w/ ostomy draining light brown semiformed stool Decubitus wounds have wound vacuum in place., Extremities with edema to right lower ankle and foot that are improving. Starting to have sensation to feet bilaterally. Unable to move Lower extremities can not feel sensation past combs, he is able to feed himself. Objective Last Vital Signs Temp 36.4 C L 05/25/21 07:37 Pulse 68 05/25/21 07:37 Resp 16 05/25/21 07:37 BP 136/75 05/25/21 07:37 Pulse Ox 97 05/25/21 07:37
[2021-05-25 14:37] VITALS: BP 121/76; PULSE 71; RESP 16; TEMP 36.5; O2SAT 96
[2021-05-25] MEDS: diazePAM 5 MG TAB 2.5 MG PO (20:49)
[2021-05-25] MEDS: diphenhydrAMINE 25 MG CAP 50 MG PO (20:51)
[2021-05-25] MEDS: Melatonin 3 MG TAB 9 MG PO (20:53)
[2021-05-25] MEDS: Gabapentin 300 MG CAP 600 MG PO (21:13)
[2021-05-25] MEDS: HYDROmorphone 2 MG TAB PO (21:13)
[2021-05-25] MEDS: HYDROmorphone 2 MG/ML VIAL 1.5 MG IVP (21:15)
[2021-05-25 23:37] VITALS: BP 165/99; PULSE 132; RESP 18; TEMP 36.4; O2SAT 96
--- NOTE | 2021-05-26 | DI.RAD_ITS ---
Exam(s) XR PORTABLE CHEST AP EXAM: XR PORTABLE CHEST AP CLINICAL HISTORY: fever TECHNIQUE: 2D digital imaging was performed. COMPARISON: CR,XR XR ABDOMEN FLAT PLATE from 03/23/2021 FINDINGS: MEDIASTINUM: Normal. HEART: Normal. PULMONARY VASCULATURE: Normal. LUNGS: Clear. PLEURAL SPACE: No pleural effusion or pneumothorax. BONE:Within normal limits for the patient's age. Incompletely imaged lower cervical and upper thorac ic spine surgery. OTHER FINDINGS:The tip of the left PICC line is in good position at the junction of the superior vena cava and right atrium. IMPRESSION: No acute pulmonary findings. DATA REPOSITORY: RADIATION DOSE DELIVERED:
[2021-05-26] MEDS: VANCOMYCIN/WATER (PEG) 1.25 GM/250 ML BAG IV (02:14)
[2021-05-26] MEDS: Normal Saline Flush 10 ML SYR IVP ×3 (02:15→11:07)
[2021-05-26] MEDS: Acetaminophen 500 MG TAB 1000 MG PO (02:58)
[2021-05-26 07:33] VITALS: BP 92/68; PULSE 110; RESP 18; TEMP 38; O2SAT 96
[2021-05-26] MEDS: Protein Nutritional Supplement 16 GM 1 OUNCE PACKET PO (07:39)
[2021-05-26] MEDS: Polyethylene Glycol 3350 17 GM PACKET PO (07:39)
[2021-05-26] MEDS: Magnesium Chloride 64 MG TABCR PO (07:39)
[2021-05-26] MEDS: DULoxetine 30 MG CAP 90 MG PO (07:39)
[2021-05-26] MEDS: Multivitamin w/Minerals TAB 1 TAB PO (07:40)
[2021-05-26] MEDS: Dronabinol 2.5 MG CAP PO (07:40)
[2021-05-26] MEDS: busPIRone 5 MG TAB 20 MG PO (07:40)
[2021-05-26] MEDS: Methylphenidate 10 MG TAB PO (07:40)
[2021-05-26] MEDS: Docusate Sodium 100 MG CAP PO (07:41)
[2021-05-26] MEDS: Apixaban 5 MG TAB PO (07:41)
[2021-05-26] MEDS: Gabapentin 300 MG CAP PO (07:41)
[2021-05-26] MEDS: Senna TAB 2 TAB PO (07:41)
[2021-05-26] MEDS: Ascorbic Acid 500 MG TAB PO (07:41)
[2021-05-26] MEDS: Baclofen 10 MG TAB PO (07:41)
[2021-05-26] MEDS: Pantoprazole 40 MG TABCR PO (07:41)
[2021-05-26] MEDS: Normal Saline Flush 10 ML SYR 20 ML IVP (07:44)
[2021-05-26] MEDS: Normal Saline 1,000 ML 1000 ML IV (08:35)
[2021-05-26 08:39] VITALS: TEMP 38
[2021-05-26] MEDS: Acetaminophen 325 MG TAB 650 MG PO (08:39)
[2021-05-26] MEDS: Normal Saline 500 ML 100 ML IV (08:39)
[2021-05-26] MEDS: cefTRIAXone 2 GM/50 ML BAG IVPB (08:40)
[2021-05-26 08:50] LABS: Abs Immature Grans 0.03 10^3/uL (0.0-0.06); Absolute Basophil Count 0.04 10^3/uL (0.0-0.2); Absolute Eosinophil Count 0.02 10^3/uL (0.0-0.7); Absolute Lymphocyte Count 0.63 10^3/uL (1.2-3.4); Absolute Monocyte Count 0.93 10^3/uL (0.1-0.8); Basophils % 0.3; Eosinophils % 0.2; HCT 37.1 % (40.0-50.0); HGB 12.2 g/dL (13.5-17.5); Immature Grans % 0.2; Lymphocytes % 5.2; MCH 28.7 pg (27.0-33.0); MCHC 32.9 % (32.0-36.0); MCV 87.3 fL (80-95); MPV 10.5 fL (8.0-11.0); Monocytes % 7.7; Neutrophils % 86.4; Nucleated RBC 0 %; Platelet Count 238 10^3/uL (130-400); RBC 4.25 10^6/uL (4.36-5.78); RDW 15.9 % (11.8-14.1); RDW-SD 50.8 fL; WBC 12.06 10^3/uL (4.4-10.8)
[2021-05-26 08:51] LABS: Lactate 2.3 mmol/L (0.6-1.4)
[2021-05-26 08:51] LABS: Absolute Neutrophil Count 10.42 10^3/uL (1.2-6.7)
--- NOTE | 2021-05-26 08:52 | DI.VRAD_ITS ---
PROCEDURE INFORMATION: Exam: XR Chest Exam date and time: 05/26/2021 7:58 AM Age: 56 years old Clinical indication: Other: Fever TECHNIQUE: Imaging protocol: XR of the chest. Views: 1 view. COMPARISON: CR XR PORTABLE CHEST AP POST LINE 03/23/2021 11:40 AM FINDINGS: Tubes, catheters and devices: Left PICC with tip at the caval atrial junction. Lungs: Unremarkable. No consolidation. Pleural spaces: Unremarkable. No pleural effusion. No pneumothorax. Heart/Mediastinum: Unremarkable. No cardiomegaly. Bones/joints: Partially imaged cervical spine hardware. No acute osseous abnormalities. IMPRESSION: No acute findings. Dictated and Authenticated by: Mateo Rdz MD. Ordering:ELA Newton MD
[2021-05-26 09:03] LABS: ALT 31 U/L (16-63); AST 25 U/L (15-37); Alkaline Phosphatase 85 U/L (46-116); Anion Gap 13.7 mmol/L (3-11); BUN 40 mg/dL (7-18); Bilirubin, Direct 0.1 mg/dL (0.0-0.2); Bilirubin, Total 0.3 mg/dL (0.2-1.0); CO2 21.3 mmol/L (21.0-32.0); CREATININE 1.2 mg/dL (0.70-1.30); Calcium 10.9 mg/dL (8.5-10.1); Chloride 105 mmol/L (98-107); Glucose 157 mg/dL (74-106); Magnesium 1.4 mg/dL (1.8-2.4); Potassium 4.4 mmol/L (3.5-5.1); Sodium 140 mmol/L (136-145); Total Protein 6.8 g/dL (6.4-8.2)
[2021-05-26 09:21] LABS: Procalcitonin 2.4 ng/mL
[2021-05-26 09:27] LABS: Bilirubin Negative (Negative); Blood Large (Negative); Clarity Cloudy (Clear); Glucose Negative (Negative); Ketones Negative (Negative); Leukocyte Esterase Moderate (Negative); Nitrite Positive (Negative); Urobilinogen 0.2 EU/dL (Up TO 0.2); pH 8.5 (5-8)
[2021-05-26 09:29] VITALS: BP 102/68; PULSE 99; RESP 18; TEMP 36.2; O2SAT 97
[2021-05-26] MEDS: CIPROFLOXACIN 400 MG/200 ML BAG 200 MG IVPB (09:30)
[2021-05-26] MEDS: Lidocaine 5% Patch 2 PATCH TP (09:31)
[2021-05-26 09:36] LABS: RBC >50 HPF (0-2)
[2021-05-26 09:37] LABS: Bacteria Many HPF (Negative); C & S Indicated? C&S Done As Ordered
[2021-05-26 09:39] VITALS: TEMP 36.2
[2021-05-26] MEDS: MAGNESIUM SULFATE 4 GM/100 ML BAG IVPB (09:50)
[2021-05-26] MEDS: Fentanyl Patch Removal 1 EACH TP (10:07)
[2021-05-26] MEDS: fentaNYL 50 MCG PATCH TD (10:07)
[2021-05-26] MEDS: Normal Saline 1,000 ML 125 ML IV (10:14)
--- NOTE | 2021-05-26 13:59 | W.PM.DS.N ---
Date of service: 05/26/21 Time of Service: 13:59 DS: Diagnosis Discharge Diagnosis (1) Sepsis: Start date: 05/26/21 Start time: 14:05 Status: Acute Asessment and Plan: Febrile overnight as high as 38.0. Source found to be from urine. Lactate of 2.3 Procal 2.4 WBC 120.6 bp was soft 92/68, meds held suprabupic recently exchanged, urine revealed positive nitrates, large amount of blood, moderate amount leuk estrase, from inserted pereyra catheter as suprabupic was not working. CXR without any acute findings. Rocephine 2 gm added to regimen along with cipro Blood cultures pending, urine culture pending. (2) UTI (urinary tract infection): Start date: 05/26/21 Start time: 14:15 Status: Acute Asessment and Plan: as above (3) Fever: Start date: 05/26/21 Start time: 14:15 Status: Acute Asessment and Plan: as above (4) Indwelling catheter replaced: Start date: 05/26/21 Start time: 14:16 Status: Acute Asessment and Plan: Suprapubic catheter exchanged today. Using sterile technique. First the catheter balloon was emptied using a 10 cc balloon. Sterile gloves were then donned and with the assistance of nursing staff, the area was cleaned of urine, then betadine was used to clean the area using sterile gloves continuing sterile technique. Once the vesicostomy was cleansed with betadine including surrounding area never breaking sterile technique the A 16 slovenian catheter was passed through the suprapubic tract into the bladder. Urine was obtained in the catheter a drainage bag was attatched and the balloon was inflated with 10 cc sterile water. (5) Acute osteomyelitis of sacrum: Start date: 05/26/21 Start time: 14:27 Status: Acute Asessment and Plan: Continue vanco x 6 weeks doing well. Unable to visualize wound as wound vac in place, He also will be on cipro for 6 weeks for osteo. Dilaudid for drsg changes IV or PO per patient discretion he will likely have acute on chronic osteo of sacrum requiring doses of vanco per previous conversation with ID. He has appt on Jun 18 with [facility] trying for plastics and wound for possible wound flap (6) Major depressive disorder: Start date: 05/26/21 Start time: 14:27 Status: Chronic Asessment and Plan: unable to tell of mood today as he is very sick and does not appear well. (7) Quadriplegia: Start date: 05/26/21 Start time: 14:27 Status: Chronic Asessment and Plan: cont. P.T. to work with patient He is able to move his middle finger on his right hand slightly which is new for him He has appt with [facility] on June 18 for paralysis center to determine if surgery is an option (8) DVT prophylaxis: Start date: 05/26/21 Start time: 14:43 Status: Chronic Asessment and Plan: On apixaban for RLE DVT (9) Constipation: Start date: 05/26/21 Start time: 14:44 Status: Chronic Asessment and Plan: Continue bowel regimen. Ostomy producing soft stool. Continue regimen discussed with Dr. Murillo Discharge Plan Disposition Patient Disposition: [facility] INPATIENT Condition: Poor Discharge Details Reason For Visit: Osteomyelitis Admit Date/Time: 04/10/21 12:53 Admit Provider: Boo Olson Attending Provider: Boo Olson Primary Care Provider: Rayna Pino Home Meds and New Rx's Prescriptions: No Action acetaminophen 500 mg capsule 1,000 mg PO Q8H RF: 0 albuterol sulfate 90 mcg/actuation aerosol powdr breath activated 2 inh inhalation Q4H PRNRF: 0 apixaban 5 mg tablet 5 mg PO BID RF: 0 buspirone 10 mg tablet 20 mg PO BID RF: 0 docusate sodium [Colace] 100 mg capsule 100 mg PO BID RF: 0 bisacodyl [Dulcolax (bisacodyl)] 10 mg suppository 10 mg [place] DAILY PRNRF: 0 Lactobacillus acidoph-L.bulgar [Floranex] 1 million cell tablet 1 tab PO TID RF: 0 polyethylene glycol 3350 [Miralax] 17 gram/dose powder 17 g PO DAILY RF: 0 senna 8.6 mg capsule 17.2 mg PO BID RF: 0 spironolactone [Aldactone] 25 mg Tablet 25 mg PO DAILY RF: 0 ascorbic acid (vitamin C) 500 mg Tablet 500 mg PO BID RF: 0 amlodipine 10 mg Tablet 10 mg PO DAILY RF: 0 pantoprazole 40 mg Tablet,Delayed Release (Dr/Ec) 40 mg PO DAILY RF: 0 diphenhydramine HCl 25 mg Capsule 25 mg PO QHS RF: 0 lidocaine 5 % Adhesive Patch,Medicated 2 patch TOPICAL DAILY RF: 0 diazepam 5 mg Tablet 2.5 mg PO QHS RF: 0 Theragran-M Tablet 1 tab PO DAILY RF: 0 tapentadol 100 mg Tablet 100 mg PO Q6H PRNRF: 0 duloxetine 30 mg Capsule, Delayed Rel Sprinkle 90 mg PO DAILY RF: 0 baclofen 5 mg Tablet 5 mg PO Q6H PRNRF: 0 ondansetron HCl [Zofran] 4 mg Tablet 4 mg PO Q8H PRNRF: 0 Discharge Instructions Referrals: [facility] [place] [OTHER] - (bilateral buttock decubitus wounds) Activity:: Activity as Tolerated Equipment/Supplies:: No Equipment Needed Diet:: As Tolerated Discharge Orders Discharge Orders: Discharge Order (Routine); Ordered 05/26/21 Ordered By: Boo Olson Discharge Data Discharge Date/Time-TO BE ENTERED AT DEPARTURE: 05/26/21 14:49 DS: Summary Time Spent with Patient providing and/or coordinating discharge services: Greater than 30 minutes Status at Discharge Functional status at discharge: bed bound Overall status at discharge: patient is not back to baseline Mental Status: mental status grossly normal Speech and Movement: other Mood: congruent mood Affect: normal affect Exam Narrative Exam Narrative: Micha looks toxic, is not feeling well, sleepy, hard to arouse but arousable. Lungs are clear heart is regular Abdomen soft and nondistended w/ ostomy draining light brown semiformed stool Decubitus wounds have wound vacuum in place. Extremities with edema to right lower ankle and foot that are improving. Starting to have sensation to feet bilaterally. Unable to move Lower extremities can not feel sensation past combs, he is able to feed himself. Psych Mental Status: mental status grossly normal Speech and Movement: other Mood: congruent mood Affect: normal affect DS: Data Vitals/I&O Vitals and I&O: Vital Signs Temperature 36.2 C L 05/26/21 09:39 Temperature Source Tympanic 05/26/21 09:29 Pulse 99 H 05/26/21 09:29 Pulse Rhythm Regular 05/25/21 19:34 Respiratory Rate 18 05/26/21 09:29 Respiratory Effort Non-Labored 05/25/21 19:34 Respiratory Depth Normal 05/25/21 19:34 Respiratory Pattern Normal 05/25/21 19:34 Blood Pressure 102/68 05/26/21 09:29 Pulse Oximetry 97 05/26/21 09:29 Oxygen Delivery Method Room Air 05/26/21 09:29 Oxygen Flow Rate 0 05/26/21 09:29 Pain Level 4 05/26/21 09:39 Comment 05/26/21 07:40 Intake & Output 05/25/21 05/26/21 05/26/21 23:59 11:59 23:59 Intake Total 1090 / 2190 1365.000 / 1605.000 240 / 1605.000 Output Total 1050 / 2200 1240 / 1540 300 / 1540 Balance 40 / -10 125.000 / 65.000 -60 / 65.000 Weight 88.4 kg Intake: IV 250 / 750 1365.000 / 1365.000 Oral 840 / 1440 240 / 240 Output: Urine 850 / 1800 1240 / 1240 Stool 200 / 400 300 / 300 Other: Urine Color Pale Light Kay [place] Urine Appearance Cloudy Cloudy Sediment Sediment Hematuria Comment Urine is strong/foul smelling. Pereyra catheter removed by Usha Menendez RN at this time per MD order. Suprapubic catheter was changed by CUT OFF MACHINE OPERATOR; Pereyra catheter is no longer required. RN will reassess as necessary. Data Completed and Pending Completed studies during hospitalization [Text1]: FINDINGS: MEDIASTINUM: Normal. HEART: Normal. PULMONARY VASCULATURE: Normal. LUNGS: Clear. PLEURAL SPACE: No pleural effusion or pneumothorax. BONE:Within normal limits for the patient's age. Incompletely imaged lower cervical and upper thoracic spine surgery. OTHER FINDINGS:The tip of the left PICC line is in good position at the junction of the superior vena cava and right atrium. IMPRESSION: No acute pulmonary findings. FINDINGS: Tubes, catheters and devices: Left PICC with tip at the caval atrial junction. Lungs: Unremarkable. No consolidation. Pleural spaces: Unremarkable. No pleural effusion. No pneumothorax. Heart/Mediastinum: Unremarkable. No cardiomegaly. Bones/joints: Partially imaged cervical spine hardware. No acute osseous abnormalities. IMPRESSION: No acute findings. Labs on day of discharge: Labs from last 24 hours 05/26/21 05/26/21 05/26/21 13:50 09:00 08:38 WBC RBC Hgb Hct MCV MCH MCHC RDW Plt Count MPV Immature Gran % Neutrophils % Lymphocytes % Monocytes % Eosinophils % Basophils % Nucleated RBC % Absolute Neutrophils Absolute Lymphocytes Absolute Monocytes Absolute Eosinophils Absolute Basophils VBG Lactate 2.3 H* Sodium Potassium Chloride Carbon Dioxide Anion Gap BUN Creatinine Estimated GFR/1.73 m2 Glucose Calcium Magnesium Total Bilirubin Conjugated Bilirubin AST ALT Alkaline Phosphatase C-Reactive Protein Total Protein Albumin Procalcitonin 2.4 Urine Color Dark Yellow Urine Clarity Cloudy Urine pH 8.5 H Ur Specific Troup 1.020 Urine Protein 100 H Urine Ketones Negative Urine Blood Large H Urine Nitrite Positive H Urine Bilirubin Negative Urine Urobilinogen 0.2 Ur Leukocyte Esterase Moderate H Urine RBC >50 H Urine WBC Not Applicable Ur Epithelial Cells Not Applicable Urine Crystals Not Applicable Urine Bacteria Many Urine Mucus Not Applicable Ur Culture Indicated? C&S Done As Ordered Urine Glucose Negative Vancomycin Trough Pending 05/26/21 05/26/21 08:30 08:30 WBC 12.06 H RBC 4.25 L Hgb 12.2 L Hct 37.1 L MCV 87.3 MCH 28.7 MCHC 32.9 RDW 15.9 H Plt Count 238 MPV 10.5 Immature Gran % 0.2 Neutrophils % 86.4 Lymphocytes % 5.2 Monocytes % 7.7 Eosinophils % 0.2 Basophils % 0.3 Nucleated RBC % 0 Absolute Neutrophils 10.42 H Absolute Lymphocytes 0.63 L Absolute Monocytes 0.93 H Absolute Eosinophils 0.02 Absolute Basophils 0.04 VBG Lactate Sodium 140 Potassium 4.4 Chloride 105 Carbon Dioxide 21.3 Anion Gap 13.7 H BUN 40 H Creatinine 1.2 Estimated GFR/1.73 m2 >= 60.00 Glucose 157 H Calcium 10.9 H Magnesium 1.4 L Total Bilirubin 0.3 Conjugated Bilirubin 0.1 AST 25 ALT 31 Alkaline Phosphatase 85 C-Reactive Protein 5.60 H Total Protein 6.8 Albumin 3.0 L Procalcitonin Urine Color Urine Clarity Urine pH Ur Specific Troup Urine Protein Urine Ketones Urine Blood Urine Nitrite Urine Bilirubin Urine Urobilinogen Ur Leukocyte Esterase Urine RBC Urine WBC Ur Epithelial Cells Urine Crystals Urine Bacteria Urine Mucus Ur Culture Indicated? Urine Glucose Vancomycin Trough 05/26/21 09:00 Urine - Cath Pereyra Indwelling Urine Culture - Pending 05/26/21 08:30 Blood Blood Culture - Pending 05/26/21 08:38 Blood Blood Culture - Pending Preliminary micro results at discharge 05/26/21 09:00 Urine Culture - Pending Urine - Cath Pereyra Indwelling 05/26/21 08:30 Blood Culture - Pending Blood 05/26/21 08:38 Blood Culture - Pending Blood [facility] Medical History Acute embolism and thrombosis of deep vein of right lower extremity Anxiety disorder C. difficile colitis Dislocation of C6/C7 cervical vertebrae DVT (deep venous thrombosis) Fall down embankment Fusion of spine Hypotension Major depressive disorder Neurogenic bladder Quadriplegia Social History Smoking/Tobacco Use Status: Never Smoking risk assessment performed?: Yes Alcohol Intake: current Alcohol Intake frequency: a few times a week Drug use: Occasionally Substance use type: marijuana Do you feel safe at home: Yes Do you feel safe in your relationship?: Yes
[2021-05-26 14:15] LABS: Vancomycin, Trough 25.4 ug/mL (10.0-20.0)
--- NOTE | 2021-05-26 16:52 | NUR.NOTE ---
Nursing Note: Pt. was transferred from swingbed status to acute status on 05/26/21 per MD order. RN will reassess as necessary.
--- NOTE | 2021-05-27 08:54 | OT.INDS ---
Date of service: 05/27/21 Time of Service: 08:54 Occupational Therapy Notes Occupational Therapy Inpatient Discharge Summary Date: 05/27/21 Dates of Service: 04/15/21-05/27/21 Referring Doctor: Boo Olson MD OT Orders: Non-Urgent Precautions: Full, Fall, Standard PATIENT PROFILE/ADMITTING DIAGNOSIS: Pt is a 56 year old male who presented to the ED from SNF for the following dx of major depressive disorder, quaridplegia, UTI, decubitus skin ulcers, constipation, and neurogenic bladder. He had a decline in medical status and was discharged to acute level of care. Past Medical History: Medical History (Updated 02/20/21 @ 22:10 by Lauri Larry MD) Acute embolism and thrombosis of deep vein of right lower extremity Anxiety disorder C. difficile colitis Dislocation of C6/C7 cervical vertebrae Fall down embankment Fusion of spine Hypotension Major depressive disorder Neurogenic bladder Quadriplegia Social History/Home Situation: Pt previously residing at SNF where his DME needs are met. He is functionally requiring what he reports as Max (A) for everything. He can perform his eating routines although notes that its a mess for him and he gets everything all over him. He would like to have better function of his (B) UE. His hands were in a contracted position which was bothersome to him, this has improved since being admitted. Equipment owned/DME: DME needs met by [facility] previously SUBJECTIVE: NT OBJECTIVE: ROM: RUE shoulder flexion minimal, elbow WFL, wrist extension is fair, digits in contracted position L UE shoulder flexion minimal, elbow WFL, wrist extension is fair, digits in contracted position STRENGTH: RUE [employer] strength is weak unable to fully grasp digits LUE [employer] strength is weak unable to fully grasp digits SENSATION: decreased sensation in (B) Eating- Pt was sitting in bed with sitting position in upright position. Pt was able to grasp his fork and bring his food to mouth with stabilization (A). He requires (A) With grasp and release as well as directional movement. Bathing- sitting in bed with mod (A) with washing face and set up is max (A) at this time. BALANCE: Static sitting Good Dynamic Sitting Good ASSESSMENT: Patient is a 56-year-old male referred to occupational therapy services with diagnosis of major depressive disorder, quaridplegia, UTI, decubitus skin ulcer, constipation, neurogenic bladder who recently under went a colostomy, aspiration of airway and is currently in SB1 level of care. Patient presents with clinical signs and symptoms consistent with dx, as demonstrated by the following impairment level findings/functional limitations: Pt requires max (A) for most ADL/IADL routines, he has contracted position of his digits and decreased functional activity tolerance due to fatigue. Decreased sensation in (B) UE and inability to perform his functional mobility (I) without (A). He was discharged from acute level of care and was being seen again under 1 level of care at this time due to a decline in medical status he is being discharged back to acute level of care. AMPAC score 7 GOALS- Progressing towards 1. Grooming- pt will be mod (I) with brushing his teeth with mod vc throughout 2. Dressing- Pt will be mod (A) with don and doffing shirt 3. Bathing- pt will be able to (I) wash his face and (B) UE 4. Pt will hold his fork and be (I) food to mouth for 1-2 meals per day with progression based on functional activity tolerance 5. Pt will be able to perform UE dressing with min (A) PLAN OF CARE/TREATMENT PLAN: [place] [facility] [place]. DISCHARGE RECOMMENDATIONS Return to SNF vs. Home with 24 hour care givers. TREATMENT TIME/MINUTES/CODES N/A Michelle Pearce OTR/L [facility]
--- NOTE | 2021-05-27 12:43 | W.PM.PROGNOT ---
Date of Service Date of service: 05/26/21 Time of Service: 11:00 Objective Last Vital Signs Temp 36.2 C L 05/26/21 09:39 Pulse 99 H 05/26/21 09:29 Resp 18 05/26/21 09:29 BP 102/68 05/26/21 09:29 Pulse Ox 97 05/26/21 09:29 Laboratory Results - last 24 hr 05/26/21 13:50 Vancomycin Trough 25.4 H* Change Bladder Catheter Procedure performed by: Eliane Tolliver Indication for procedure: Occlusion of bladder catheter Informed consent given: No (emergent) Consent signed: No Position of patient: supine Inplace catheter size (Fr): 16 Inplace catheter type: supra pubic Water amount removed from catheter balloon: 8 cc Catheter removed: without difficulty Catheter intact: Yes Sterilizing agent: Yes Type: betadine Catheter size (Fr): 16 Catheter type: supra pubic Lubrication: Yes Catheter inserted: without difficulty Volume instilled into catheter balloon: 10 cc Amount of urine out: 300 Urine color: dark yellow Urine clarity: clear Clots present: No Irrigation: No Catheter attached to: bedside drainage bag Patient tolerated procedure: well Complications: No
== END 2021-05-26 14:49 | disposition short-term general hospital (02) | DRG 539 ==
PROVIDERS: Family Medicine; Internal Medicine; Nurse Practitioner Acute Care; Nurse Practitioner Family; Surgery; Admitting Provider Internal Medicine; PCP Nurse Practitioner Family; Visit Provider Internal Medicine
DX: M46.28 Osteomyelitis of vertebra, sacral and sacrococcygeal region (principal); L89.894 Pressure ulcer of other site, stage 4; L89.324 Pressure ulcer of left buttock, stage 4; G82.50 Quadriplegia, unspecified; A41.9 Sepsis, unspecified organism; K91.2 Postsurgical malabsorption, not elsewhere classified; K59.2 Neurogenic bowel, not elsewhere classified; I82.411 Acute embolism and thrombosis of right femoral vein; G95.89 Other specified diseases of spinal cord; F32.1 Major depressive disorder, single episode, moderate; N39.0 Urinary tract infection, site not specified; D50.9 Iron deficiency anemia, unspecified; Z93.3 Colostomy status; N31.9 Neuromuscular dysfunction of bladder, unspecified; Z66 Do not resuscitate; K59.09 Other constipation; Z93.51 Cutaneous-vesicostomy status; L89.152 Pressure ulcer of sacral region, stage 2
CPT/HCPCS: 51705; 36410; 36415; 80048; 80053; 80076; 84145; 85652; 87040; 87077; 97110; 97140; 97163; 97167; 97530; 97535; 99305; 99307; 99309; 99316; 71045; 80202; 81003; 81015; 82565; 83605; 83735; 84134; 85025; 85049; 86140; 87086; 87186; 99308; J0744; J1650; J2060; J2997; J3475; J3490

== ENCOUNTER 2021-05-26 13:50 | Inpatient (IN) | payer BC, SELFPAY ==
[2021-05-26] MEDS: Gabapentin 300 MG CAP PO ×2 (13:48→19:23)
[2021-05-26] MEDS: Docusate Sodium 100 MG CAP PO ×2 (13:49→19:23)
[2021-05-26] MEDS: Baclofen 10 MG TAB PO ×2 (13:49→19:23)
[2021-05-26] MEDS: Normal Saline Flush 10 ML SYR IVP ×3 (13:49→21:23)
[2021-05-26 15:18] VITALS: BP 102/65; PULSE 86; RESP 18; TEMP 36.5; O2SAT 97
[2021-05-26] MEDS: Acetaminophen 500 MG TAB 1000 MG PO ×2 (15:27→21:22)
--- NOTE | 2021-05-26 15:53 | W.PM.HP.N ---
Date of service: 05/26/21 Time of Service: 15:53 Assessment and Plan Assessment and plan (1) Sepsis: Start date: 05/26/21 Start time: 16:27 Status: Acute Assessment and plan: Febrile overnight as high as 38.0. Tachycardic at 132 with low bp, toxic appearing, 1 liter IVF with NS@ 125 Source found to be from urine. Lactate of 2.3 Procal 2.4 WBC 120.6 bp was soft 92/68, meds held suprabupic recently exchanged, urine revealed positive nitrates, large amount of blood, moderate amount leuk estrase, from inserted pereyra catheter as suprabupic was not working. CXR without any acute findings. Rocephine 2 gm added to regimen along with cipro Blood cultures pending, urine culture pending. repeat labs in am Qualifiers: Sepsis acute organ dysfunction status: unspecified Sepsis type: sepsis due to unspecified organism Qualified Code(s): A41.9 - Sepsis, unspecified organism (2) Fever: Start date: 05/26/21 Start time: 16:27 Status: Acute Assessment and plan: as above Qualifiers: Fever type: post-procedural Qualified Code(s): R50.82 - Postprocedural fever (3) UTI (urinary tract infection): Start date: 05/26/21 Start time: 16:28 Status: Acute Assessment and plan: as above cx pending Qualifiers: Encounter type: initial encounter Indwelling urinary catheter type: indwelling urethral catheter Urinary tract infection type: catheter-associated UTI Qualified Code(s): T83.511A - Infection and inflammatory reaction due to indwelling urethral catheter, initial encounter; N39.0 - Urinary tract infection, site not specified (4) Indwelling catheter replaced: Start date: 05/26/21 Start time: 16:29 Status: Acute Assessment and plan: Suprapubic catheter exchanged today. Using sterile technique. First the catheter balloon was emptied using a 10 cc balloon. Sterile gloves were then donned and with the assistance of nursing staff, the area was cleaned of urine, then betadine was used to clean the area using sterile gloves continuing sterile technique. Once the vesicostomy was cleansed with betadine including surrounding area never breaking sterile technique the A 16 urdu catheter was passed through the suprapubic tract into the bladder. Urine was obtained in the catheter a drainage bag was attached and the balloon was inflated with 10 cc sterile water. (5) Low magnesium level: Start date: 05/26/21 Start time: 16:29 Status: Acute Assessment and plan: Repleted with IV mag, will recheck level in am (6) Acute osteomyelitis of sacrum: Start date: 05/26/21 Start time: 16:32 Status: Acute Assessment and plan: Continue vanco x 6 weeks doing well. Unable to visualize wound as wound vac in place, He also will be on cipro for 6 weeks for osteo. Dilaudid for drsg changes IV or PO per patient discretion he will likely have acute on chronic osteo of sacrum requiring doses of vanco per previous conversation with ID. He has appt on Jun 18 with [facility] trying for plastics and wound for possible wound flap (7) Major depressive disorder: Start date: 05/26/21 Start time: 16:32 Status: Chronic Assessment and plan: unable to tell of mood today as he is very sick and does not appear well. Qualifiers: Active/Remission status: currently active Major depression episode severity: moderate Major depression recurrence: single episode Qualified Code(s): F32.1 - Major depressive disorder, single episode, moderate (8) Hx of caloric malnutrition: Start date: 05/26/21 Start time: 16:33 Status: Chronic Assessment and plan: placed on ritalin and marinol which has dramatically improved appetite (9) Quadriplegia: Start date: 05/26/21 Start time: 16:34 Status: Chronic Assessment and plan: cont. P.T. to work with patient He is able to move his middle finger on his right hand slightly which is new for him He has appt with [facility] on June 18 for paralysis center to determine if surgery is an option (10) Neurogenic bladder: Start date: 05/26/21 Start time: 16:34 Status: Chronic Assessment and plan: as above (11) S/P colostomy: Start date: 05/26/21 Start time: 16:35 Status: Chronic Assessment and plan: with semiformed stool, pink stoma (12) DVT (deep venous thrombosis): Start date: 05/26/21 Start time: 16:36 Status: Chronic Assessment and plan: On apixaban for RLE DVT Qualifiers: Affected thrombotic vein of extremity: femoral Chronicity: acute DVT location: lower extremity Laterality: right Qualified Code(s): I82.411 - Acute embolism and thrombosis of right femoral vein (13) Discharge planning issues: Start date: 05/26/21 Start time: 16:36 Status: Acute Assessment and plan: He wants to go home to live with his ex Nicki who has agreed to take care of him with support and equipment while his house is being built. He will require alot of care. However I don't think that should happen until after his appt with [facility], for one hoping they will keep him and do surgery earlier than october and plastics will be able to see him and 2 that due to his antibiotic regimen he should really stay in the hospital until that is finished to make sure he is safe for discharge to home vs LTC facility. Case management is working with family to help with safe discharge and to make sure all needs can be met to make discharge happen above discussed with Dr. tillman History of Present Illness History of Present Illness Chief Complaint: Urospesis, Fever Narrative: 56 y.o male being transitioned from to Acute care; he has been doing well until overnight when he became tachycardic up to 132, febrile at 38.0, with low bp. On eval this am he appeared toxic. Labs ordered and he had white count of 12k, anion gap 13.7, mag 1.4, CRP is 5.60 procal 2.4. Urine revealed large amount of blood, positive nitrates, moderate leuk est, urine culture pending, blood culture pending. CXR done revealing no acute process. He was given a liter of IVF, fentanyl patch removed due to fever. He is also hard to arouse but arouseable. IVF infusing mag repleted. He was placed on ceftriaxone 2 gm and cipro in addition to vanco for osteo; until urine culture comes back. Suprapubic exchanged by myself as Dr. Molina unavailable and ED physician would not help. See diagnosis for further management. For this reason he was changed to acute care. Review of Systems All systems reviewed & are unremarkable except as noted in HPI and below [facility] Medical History (Updated 05/26/21 @ 16:35 by Eliane Tolliver NP) Acute embolism and thrombosis of deep vein of right lower extremity Anxiety disorder Aspiration into airway C. difficile colitis Constipation Constipation due to neurogenic bowel Decubitus skin ulcer Decubitus ulcer of buttock, stage 4 Dislocation of C6/C7 cervical vertebrae DNR (do not resuscitate) DVT (deep venous thrombosis) DVT prophylaxis Encounter for wound care Fall down embankment Fusion of spine H/O deep venous thrombosis Hypokalemia Hypotension Ileus Iron deficiency anemia Large bowel obstruction Major depressive disorder Malnutrition following gastrointestinal surgery Neurogenic bladder Neurogenic bowel Open wound of abdominal wall Palliative care patient Physician orders for life-sustaining treatment (POLST) form indicates patient wish for [id number] status Quadriplegia Right arm pain Visit for wound check Surgical History (Updated 05/26/21 @ 16:35 by Eliane Tolliver NP) S/P colostomy Social History Smoking/Tobacco Use Status: Never Smoking risk assessment performed?: Yes Alcohol Intake: current Alcohol Intake frequency: a few times a week Drug use: Occasionally Substance use type: marijuana Do you feel safe at home: Yes Do you feel safe in your relationship?: Yes Meds Allergies and Home Medications Allergies Allergy/AdvReac Type Severity Reaction Status Date / Time No Known Allergies Allergy Unverified 11/26/18 03:46 Home Medications Medication Instructions Recorded Confirmed Type Lactobacillus acidoph-L.bulgaricus 1 tab PO TID tab 01/29/21 05/26/21 History 1 million cell tablet acetaminophen 500 mg capsule 1,000 mg PO Q8H cap 01/29/21 05/26/21 History albuterol sulfate 90 mcg/actuation 2 inh INHALATION Q4H PRN 01/29/21 05/26/21 History breath activated powder inhaler apixaban 5 mg tablet 5 mg PO BID 01/29/21 05/26/21 History bisacodyl 10 mg rectal suppository 10 mg [place] DAILY PRN 01/29/21 05/26/21 History buspirone 10 mg tablet 20 mg PO BID tab 01/29/21 05/26/21 History docusate sodium 100 mg capsule 100 mg PO BID 01/29/21 05/26/21 History polyethylene glycol 3350 17 17 g PO DAILY 01/29/21 05/26/21 History gram/dose oral powder sennosides 8.6 mg capsule 17.2 mg PO BID 01/29/21 05/26/21 History baclofen 5 mg PO Q6H PRN 02/20/21 05/26/21 History ondansetron HCl [Zofran] 4 mg PO Q8H PRN 02/20/21 05/26/21 History amlodipine 10 mg PO DAILY 04/10/21 05/26/21 History ascorbic acid (vitamin C) 500 mg PO BID 04/10/21 05/26/21 History diazepam 2.5 mg PO QHS 04/10/21 05/26/21 History diphenhydramine HCl 25 mg PO QHS 04/10/21 05/26/21 History duloxetine 90 mg PO DAILY 04/10/21 05/26/21 History lidocaine 2 patch TOPICAL DAILY 04/10/21 05/26/21 History multivitamin,tx-minerals 1 tab PO DAILY 04/10/21 05/26/21 History [Theragran-M] pantoprazole 40 mg PO DAILY 04/10/21 05/26/21 History spironolactone [Aldactone] 25 mg PO DAILY 04/10/21 05/26/21 History tapentadol 100 mg PO Q6H PRN 04/10/21 05/26/21 History Exam Narrative Exam Narrative: Exam Narrative: Patient looks toxic, is not feeling well, sleepy, hard to arouse but arousable. Lungs are clear heart is regular Abdomen soft and nondistended w/ ostomy draining light brown semiformed stool Decubitus wounds have wound vacuum in place. Extremities with edema to right lower ankle and foot that are improving. Starting to have sensation to feet bilaterally. Unable to move Lower extremities can not feel sensation past combs, he is able to feed himself. Psych Mental Status: mental status grossly normal Speech and Movement: other Mood: congruent mood Affect:unable to asses at this time due to toxic state Results Last Vital Signs Temp 36.5 C 05/26/21 15:18 Pulse 86 05/26/21 15:18 Resp 18 05/26/21 15:18 BP 102/65 05/26/21 15:18 Pulse Ox 97 05/26/21 15:18
--- NOTE | 2021-05-26 16:51 | NUR.NOTE ---
Nursing Note: Pt. was transferred from swingbed status to acute status on 05/26/21 per MD order. RN will reassess as necessary.
[2021-05-26] MEDS: CIPROFLOXACIN 400 MG/200 ML BAG 200 MG IVPB (17:34)
[2021-05-26] MEDS: VANCOMYCIN/WATER (PEG) 1 GM/200 ML BAG IV (17:35)
[2021-05-26] MEDS: Protein Nutritional Supplement 16 GM 1 OUNCE PACKET PO (19:21)
[2021-05-26] MEDS: Normal Saline Flush 10 ML SYR 20 ML IVP (19:21)
[2021-05-26] MEDS: busPIRone 5 MG TAB 20 MG PO (19:22)
[2021-05-26] MEDS: Ascorbic Acid 500 MG TAB PO (19:22)
[2021-05-26] MEDS: Senna TAB 2 TAB PO (19:22)
[2021-05-26] MEDS: Apixaban 5 MG TAB PO (19:23)
[2021-05-26] MEDS: Normal Saline 1,000 ML 125 ML IV (19:32)
[2021-05-26] MEDS: diazePAM 5 MG TAB 2.5 MG PO (21:20)
[2021-05-26] MEDS: Gabapentin 300 MG CAP 600 MG PO (21:21)
[2021-05-26] MEDS: HYDROmorphone 2 MG/ML VIAL 1.5 MG IVP (21:21)
[2021-05-26] MEDS: diphenhydrAMINE 25 MG CAP 50 MG PO (21:22)
[2021-05-26] MEDS: Melatonin 3 MG TAB 9 MG PO (21:23)
[2021-05-26] MEDS: HYDROmorphone 2 MG TAB PO (21:23)
[2021-05-26 23:45] VITALS: BP 93/49; PULSE 69; RESP 16; TEMP 36.6; O2SAT 96
[2021-05-27] MEDS: Normal Saline 1,000 ML 125 ML IV ×2 (01:50→14:12)
[2021-05-27] MEDS: CIPROFLOXACIN 400 MG/200 ML BAG 200 MG IVPB ×3 (01:50→17:38)
[2021-05-27] MEDS: VANCOMYCIN/WATER (PEG) 1 GM/200 ML BAG IV ×2 (06:03→18:46)
[2021-05-27] MEDS: Acetaminophen 500 MG TAB 1000 MG PO ×3 (06:03→21:51)
[2021-05-27] MEDS: Methylphenidate 10 MG TAB PO ×2 (06:04→10:09)
[2021-05-27] MEDS: Dronabinol 2.5 MG CAP PO ×2 (06:04→10:09)
[2021-05-27 06:42] LABS: Abs Immature Grans 0.01 10^3/uL (0.0-0.06); Absolute Basophil Count 0.03 10^3/uL (0.0-0.2); Absolute Eosinophil Count 0.35 10^3/uL (0.0-0.7); Absolute Lymphocyte Count 0.85 10^3/uL (1.2-3.4); Absolute Monocyte Count 0.56 10^3/uL (0.1-0.8); Basophils % 0.4; Eosinophils % 5.2; Immature Grans % 0.1; Lymphocytes % 12.7; MCHC 31.9 % (32.0-36.0); MCV 87.8 fL (80-95); MPV 10.7 fL (8.0-11.0); Monocytes % 8.4; Neutrophils % 73.2; Nucleated RBC 0 %; Platelet Count 170 10^3/uL (130-400); RBC 3.53 10^6/uL (4.36-5.78); RDW 16.2 % (11.8-14.1); RDW-SD 51.8 fL
[2021-05-27 06:46] LABS: Anion Gap 8.3 mmol/L (3-11); BUN 29 mg/dL (7-18); CO2 23.7 mmol/L (21.0-32.0); CREATININE 0.6 mg/dL (0.70-1.30); Chloride 109 mmol/L (98-107); Glucose 123 mg/dL (74-106); Magnesium 1.8 mg/dL (1.8-2.4); Potassium 3.8 mmol/L (3.5-5.1); Sodium 141 mmol/L (136-145)
[2021-05-27 07:31] LABS: HGB 9.9 g/dL (13.5-17.5)
[2021-05-27] MEDS: Senna TAB 2 TAB PO ×2 (08:19→21:50)
[2021-05-27] MEDS: busPIRone 5 MG TAB 20 MG PO ×2 (08:19→21:49)
[2021-05-27] MEDS: Gabapentin 300 MG CAP PO ×2 (08:21→13:19)
[2021-05-27] MEDS: DULoxetine 30 MG CAP 90 MG PO (08:21)
[2021-05-27] MEDS: Multivitamin w/Minerals TAB 1 TAB PO (08:21)
[2021-05-27] MEDS: Baclofen 10 MG TAB PO ×3 (08:21→21:50)
[2021-05-27] MEDS: Docusate Sodium 100 MG CAP PO ×3 (08:22→21:49)
[2021-05-27] MEDS: Protein Nutritional Supplement 16 GM 1 OUNCE PACKET PO ×2 (08:23→21:46)
[2021-05-27] MEDS: Apixaban 5 MG TAB PO ×2 (08:23→21:50)
[2021-05-27] MEDS: Ascorbic Acid 500 MG TAB PO ×2 (08:23→21:51)
[2021-05-27] MEDS: Normal Saline Flush 10 ML SYR 20 ML IVP ×2 (08:23→21:52)
[2021-05-27] MEDS: Pantoprazole 40 MG TABCR PO (08:23)
[2021-05-27] MEDS: Polyethylene Glycol 3350 17 GM PACKET PO (08:24)
[2021-05-27] MEDS: Lidocaine 5% Patch 2 PATCH TP (08:24)
[2021-05-27] MEDS: cefTRIAXone 2 GM/50 ML BAG IVPB (08:26)
[2021-05-27] MEDS: Magnesium Chloride 64 MG TABCR PO (08:52)
--- NOTE | 2021-05-27 08:58 | OTIE_ITS ---
Occupational Therapy Notes Inpatient Occupational Therapy Evaluation Date: 05/27/21 Referring Doctor: Eliane Tolliver NP OT Orders: Non-Urgent Precautions: Full, Fall, Standard PATIENT PROFILE/ADMITTING DIAGNOSIS: Pt is a 56 year old male who presented to the ED from SNF for the following dx of major depressive disorder, quaridplegia, UTI, decubitus skin ulcers, constipation, and neurogenic bladder. He is re- evaluated at todays session under acute level of care due to an UTI. Past Medical History: Medical History (Updated 05/26/21 @ 16:35 by Eliane Tolliver NP) Acute embolism and thrombosis of deep vein of right lower extremity Anxiety disorder Aspiration into airway C. difficile colitis Constipation Constipation due to neurogenic bowel Decubitus skin ulcer Decubitus ulcer of buttock, stage 4 Dislocation of C6/C7 cervical vertebrae DNR (do not resuscitate) DVT (deep venous thrombosis) DVT prophylaxis Encounter for wound care Fall down embankment Fusion of spine H/O deep venous thrombosis Hypokalemia Hypotension Ileus Iron deficiency anemia Large bowel obstruction Major depressive disorder Malnutrition following gastrointestinal surgery Neurogenic bladder Neurogenic bowel Open wound of abdominal wall Palliative care patient Physician orders for life-sustaining treatment (POLST) form indicates patient wish for no-otn-vgqukmyonnu status Quadriplegia Right arm pain Visit for wound check Surgical History (Updated 05/26/21 @ 16:35 by Eliane Tolliver NP) S/P colostomy Social History/Home Situation: Pt previously residing at SNF where his DME needs are met. He is functionally requiring what he reports as Max (A) for everything. He can perform his eating routines although notes that its a mess for him and he gets everything all over him. He would like to have better function of his (B) UE. His hands were in a contracted position which was bothersome to him, this has improved since being admitted. Equipment owned/DME: DME needs met by SNF previously SUBJECTIVE: Pt was lying in bed when OT arrived, he states that he has a UTI and is discouraged. OBJECTIVE: General Observation: Pleasant and appropriate, osteotomy, ANKITA stockings, IV in (L) UE picc line Mental Status: A&Ox3 Pain: pain in (B) shoulders ROM: RUE shoulder flexion minimal, elbow WFL, wrist extension is fair, digits in contracted position L UE shoulder flexion minimal, elbow WFL, wrist extension is fair, digits in contracted position STRENGTH: RUE [employer] strength is weak unable to fully grasp digits LUE [employer] strength is weak unable to fully grasp digits SENSATION: decreased sensation in UE (B) with hypersensitivity in his (L) Eating- Pt was sitting in bed with sitting position in upright position. Pt was able to grasp his fork and bring his food to mouth (I) but requires (A) with stabbing food and with directional awareness. He requires (A) With grasp and release as well as directional movement. Eating requires modified utensils. Bathing- sitting in bed with (I) with washing face at his chin to nose level and set up is max (A) at this time. BALANCE: Static sitting Good Dynamic Sitting Good SPECIAL TESTS: Daily Activity Limitations Standardized Measure [facility] AM -PAC ?6 clicks? Daily Activity Inpatient Short Form: Raw score: 7 Standardized score: 20.13 CMS score: 92.44% INFORMED CONSENT/EDUCATION: Pt instructed in purpose of OT Consult and plan of care. ASSESSMENT: Patient is a 56-year-old male referred to occupational therapy services with diagnosis of major depressive disorder, quaridplegia, UTI, decubitus skin ulcer, constipation, neurogenic bladder who recently under went a colostomy, aspiration of airway and is currently in acute level of care due to a UTI. Patient presents with clinical signs and symptoms consistent with dx, as demonstrated by the following impairment level findings/functional limitations: Pt requires max (A) for most ADL/IADL routines, he has contracted position of his digits and decreased functional activity tolerance due to fatigue. Decreased sensation in (B) UE and inability to perform his functional mobility (I) without (A). He was discharged from acute level of care and is currently being seen again under acute level of care at this time due to a decline in medical status. AMPAC score 7 Patient is assessed as a Moderate 60163 complexity based on the following: History: see above Examination: see functional limitations as noted above Presentation: evolving Decision Making: AMPAC score 7, CMS 92.44% GOALS Goals x1 week 1. Grooming- pt will be mod (I) with brushing his teeth with mod vc throughout 2. Dressing- Pt will be min (A) with don and doffing shirt 3. Bathing- pt will be able to (I) wash his face and (B) UE 4. Pt will hold his fork and be (I) food to mouth for 1-2 meals per day with progression based on functional activity tolerance PLAN OF CARE/TREATMENT PLAN: 1x/day, 5 days/ week x 1week Initiate Occupational Therapy Services for bathing, dressing, grooming, toileting, eating, transfer training. DISCHARGE RECOMMENDATIONS Return to SNF vs. Home with 24 hour care givers. TREATMENT TIME/MINUTES/CODES 75363, [id number], 35 minutes (08:10) Michelle Pearce OTR/L [facility] [place]
[2021-05-27 09:00] VITALS: BP 121/63; PULSE 76; RESP 16; TEMP 35.9; O2SAT 98
--- NOTE | 2021-05-27 09:50 | PDOC.CMPRO ---
- If Service Date Differs Date of service: 05/27/21 Time of Service: 09:50 Care Management Progress Note S/O:Favio was lying in bed visiting with his father when CM met with him. He appeared to be in good spirits and informed CM that he is feeling good today. Over the weekend Favio developed fever, hypotension and leukocytosis and, per provider, appeared to be getting septic, probably from a UTI. Blood and urine cultures were obtained. Today Favio shared that even though he had a fever and low blood pressure yesterday, he felt fine. Today his blood pressure is back WNL, his WBC has normalized and he is afebrile.Favio stated that there is still no word from [facility] regarding his LTM application but it has been less than a week since the second application was submitted. A: Favio is a 56 year old man admitted on 02/22/21 with constipation. Since then Favoi alternated between acute stays and SB-1, never leaving the facility. On 05/26/21 he was transferred from SB1 to acute due to urosepsis. P: Favio is still awaiting approval for termite [employer] serv[employer] medicaid. A second application (complete) was submitted last week. When approved, he will likely go to a SNF for additional rehab before possible going to live with Nicki, the mother of his children and good friend. He will follow up with his community providers and transport via ambulance. CM will continue to support Favio and his family and his discharge planning needs.
--- NOTE | 2021-05-27 10:01 | PGE_ITS ---
Date of Service Date of service: 05/27/21 Time of Service: 10:01 Assessment and Plan Assessment and plan (1) Sepsis: Start date: 05/27/21 Start time: 10:41 Status: Acute Assessment and plan: Fever defervesced. He is feeling improved. WBC down to 6 continue ceftriaxone, cipro, and (vanco for osteo) until BC results blood cultures pending urine culture growing gram negative rods Suprapubic changed yesterday Will repeat crp and procal tomorrow Qualifiers: Sepsis type: sepsis due to unspecified organism Sepsis acute organ dysfunction status: unspecified Qualified Code(s): A41.9 - Sepsis, unspecified organism (2) Fever: Start date: 05/27/21 Start time: 10:45 Status: Acute Assessment and plan: as above Qualifiers: Fever type: post-procedural Qualified Code(s): R50.82 - Postprocedural fever (3) UTI (urinary tract infection): Start date: 05/27/21 Start time: 10:46 Status: Acute Assessment and plan: as above cx pending Qualifiers: Urinary tract infection type: catheter-associated UTI Indwelling urinary catheter type: indwelling urethral catheter Encounter type: initial encounter Qualified Code(s): T83.511A - Infection and inflammatory reaction due to indwelling urethral catheter, initial encounter; N39.0 - Urinary tract infection, site not specified (4) Indwelling catheter replaced: Start date: 05/27/21 Start time: 10:47 Status: Acute Assessment and plan: Done on 05/26 Suprapubic catheter exchanged today. Using sterile technique. First the catheter balloon was emptied using a 10 cc balloon. Sterile gloves were then donned and with the assistance of nursing staff, the area was cleaned of urine, then betadine was used to clean the area using sterile gloves continuing sterile t echnique. Once the vesicostomy was cleansed with betadine including surrounding area never breaking sterile technique the A 16 nicaraguan catheter was passed through the suprapubic tract into the bladder. Urine was obtained in the catheter a drainage bag was attached and the balloon was inflated with 10 cc sterile water. (5) Low magnesium level: Start date: 05/27/21 Start time: 10:48 Status: Resolved Assessment and plan: Mag level 1.8 (6) Acute osteomyelitis of sacrum: Start date: 05/27/21 Start time: 10:49 Status: Acute Assessment and plan: Continue vanco x 6 weeks doing well. Unable to visualize wound as wound vac in place, He also will be on cipro for 6 weeks for osteo. Dilaudid for drsg changes IV or PO per patient discretion he will likely have acute on chronic osteo of sacrum requiring doses of vanco per previous conversation with ID. He has appt on Jun 18 with [email or web address] trying for plastics and wound for possible wound flap (7) Major depressive disorder: Start date: 05/27/21 Start time: 10:49 Status: Chronic Assessment and plan: Mood is very good. He feels well. Does not feel sick Qualifiers: Major depression recurrence: single episode Active/Remission status: currently active Major depression episode severity: moderate Qualified Code( s): F32.1 - Major depressive disorder, single episode, moderate (8) Hx of caloric malnutrition: Start date: 05/27/21 Start time: 10:50 Status: Chronic Assessment and plan: placed on ritalin and marinol which has dramatically improved appetite (9) Quadriplegia: Start date: 05/27/21 Start time: 10:55 Status: Chronic Assessment and plan: cont. P.T. to work with patient He is able to move his middle finger on his right hand slightly which is new for him He has appt with [facility] on June 18 for paralysis center to determine if surgery is an option (10) Neurogenic bladder: Start date: 05/27/21 Start time: 10:56 Status: Chronic Assessment and plan: as above (11) S/P colostomy: Start date: 05/27/21 Start time: 10:56 Status: Chronic Assessment and plan: with semiformed stool, pink stoma (12) DVT (deep venous thrombosis): Start date: 05/27/21 Start time: 10:56 Status: Chronic Assessment and plan: On apixaban for RLE DVT Qualifiers: DVT location: lower extremity Affected thrombotic vein of extremity: femoral Chronicity: acute Laterality: right Qualified Code(s): I82.411 - Acute embolism and thrombosis of right femoral vein (13) Discharge planning issues: Start date: 05/27/21 Start time: 10:57 Status: Acute Assessment and plan: He wants to go home to live with his ex Nicki who has agreed to take care of him with support and equipment while his house is being built. He will require alot of care. However I don't think that should happen until after his appt with [facility] general, for one hoping they will keep him and do surgery earlier than october and plastics will be able to see him and 2 that due to his antibiotic regimen he should really stay in the hospital until that is finished to make sure he is safe for discharge to home vs LTC facility. Case management is working with family to help with safe discharge and to make sure all needs can be met to make discharge happen above discussed with Dr. tillman Subjective Subjective Patient reports: feels better Interval history since last seen: Favio is sitting up in chair, feels great, doing much better today. He is having visible spasms to his arms. Valium ordered to help with spasms and anxiety. WBC down today, Afebrile, BP improved. Will continue to monitor urine cx and blood cx and narrow antibiotics when sensitivities come back. He denies CP, SOB, N/V/D. Exam Narrative Exam Narrative: Exam Narrative: Patient sitting up in chair, looking well. Lungs are clear heart is regular Abdomen soft and nondistended w/ ostomy draining light brown semiformed stool Decubitus wounds have wound vacuum in place. Extremities with edema to right lower ankle and foot that are improving. Starting to have sensation to feet bilaterally. Unable to move Lower extremities can not feel sensation past combs, he is able to feed himself. Psych Mental Status: mental status grossly normal Speech and Movement: other Mood: congruent mood Affect:mood is good, feels great Objective Last Vital Signs Temp 35.9 C L 05/27/21 09:00 Pulse 76 05/27/21 09:00 Resp 16 05/27/21 09:00 BP 121/63 05/27/21 09:00 Pulse Ox 98 05/27/21 09:00 Laboratory Results - last 24 hr 05/27/21 05/27/21 06:25 06:25 WBC 6.70 D RBC 3.53 L Hgb 9.9 L D Hct 31.0 L MCV 87.8 MCH 28.0 MCHC 31.9 L RDW 16.2 H Plt Count 170 MPV 10.7 Immature Gran % 0.1 Neutrophils % 73.2 Lymphocytes % 12.7 Monocytes % 8.4 Eosinophils % 5.2 Basophils % 0.4 Nucleated RBC % 0 Absolute Neutrophils 4.90 Absolute Lymphocytes 0.85 L Absolute Monocytes 0.56 Absolute Eosinophils 0.35 Absolute Basophils 0.03 Sodium 141 Potassium 3.8 Chloride 109 H Carbon Dioxide 23.7 Anion Gap 8.3 BUN 29 H D Creatinine 0.6 L D Estimated GFR/1.73 m2 >= 60.00 Glucose 123 H Calcium 10.0 Magnesium 1.8
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
--- NOTE | 2021-05-27 10:26 | PHACLINREV_ITS ---
Pharmacy Admission Review - Admission Clinical Review (Last Updated 05/26/21 @ 16:35 by Eliane Tolliver NP) Low magnesium level (Acute) Fever (Acute) UTI (urinary tract infection) (Acute) Indwelling catheter replaced (Acute) Sepsis (Acute) Acute osteomyelitis of sacrum (Acute) Discharge planning issues (Acute) No Known Allergies Allergy (Unverified 11/26/18 03:46) Resuscitation Status DNR/DNI Height 6 ft 2 in Weight 91 kg - Renal Dosing Renal Dosing: BUN 29 mg/dL (7-18) H D 05/27/21 06:25 Creatinine 0.6 mg/dL (0.70-1.30) L D 05/27/21 06:25 Medications needing adjustments: Reviewed (Crcl ~122 mL/min current meds okay.) - Anticoagulation Anticoagulation: Hgb 9.9 g/dL (13.5-17.5) L D 05/27/21 06:25 Hct 31.0 % (40.0-50.0) L 05/27/21 06:25 Plt Count 170 10^3/uL (130-400) 05/27/21 06:25 Creatinine 0.6 mg/dL (0.70-1.30) L D 05/27/21 06:25 DVT Prophylaxis: N/A Therapeutic Anticoagulation: Reviewed Medications: Apixaban - Opiate Usage Evaluate Pain Scale/Pains Meds: Intervened (Talked to provider about opioid dosing yesterday prior to change from acute to swingbed status as fentayl patch was d/c'd but would remain in the patients system for awhile given its half- life. Tapentadol discontinued as pt had not been using that and had other options available.) Scheduled Bowel Reg ordered if on Opiates?: Yes - Relevant Labs Sodium 141 mmol/L (136-145) 05/27/21 06:25 Potassium 3.8 mmol/L (3.5-5.1) 05/27/21 06:25 Chloride 109 mmol/L (98-107) H 05/27/21 06:25 Magnesium 1.8 mg/dL (1.8-2.4) 05/27/21 06:25 Electrolytes, C-Reactive P, ESR: Reviewed - DM Control DM Control: Glucose 123 mg/dL (74-106) H 05/27/21 06:25 Insulin Dosing: N/A - Heart Failure/HI EF%, JAYLON's, B-Blockers, Diuretics: N/A - BP Control BP Control: Blood Pressure 121/63 Blood Pressure 93/49 If elevated: Reviewed (BP low to normal, amlodipine and spironolactone currently on hold.) - Qtc Review If Elevated: N/A - IV to PO Switch IV Medications: Reviewed - Home Meds Home Med List reviewed: Reviewed (Multiple [employer] depressants) Relevent Home Meds Not ordered & why?: tapentadol (PRN, discontuned as pt was not using/had other options for pain available, provider monitoring). - Current meds Current Medication Order Review: Intervened (Reviewed meds prior to change to acute status and talked to provider about whether the patient was still in need of those or not (based on pt's use and status).) - Comments Comments/Follow Ups: Continue to watch BP, H/H, SCr, labs, for culture results and for med changes (IV to PO, resumption of BP meds, narrowing of abx) Antibiotic Activity - Pharmacy Antibiotic Review Pharmacy Antibiotic Activity: C/S review (Vanco continues for cellulitis until 06/01/21. Ceftriaxone and cipro added yesterday (day 2). Blood cultures have no growth@24 hours. Urine culture is growing gram negative rods. Vanco dose held yesterday and restarted at 1 gram Q12H due to elevated trough of 24.5.)
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
[2021-05-27] MEDS: diazePAM 5 MG TAB PO (10:43)
--- NOTE | 2021-05-27 13:14 | W.NUTRFU ---
Date of service: 05/27/21 Time of Service: 13:14 Nutritional Follow up NOTE: Favio continues to meet nutritional needs by mouth. Diet supplement with MVI, liquid protein and ensure as needed. Most recent prealbumin 26 (04/26/21) indicating good nutritional status and ability to heal pressure wounds. Request another pre albumin at next blood draw. Will continue to follow and encourage high nutritional intake for optimal wound healing. Time Spent in Nutritional Counseling and Treatment: 0
[2021-05-27] MEDS: HYDROmorphone 2 MG/ML VIAL IVP (13:39)
[2021-05-27 17:12] VITALS: BP 146/80; PULSE 84; RESP 16; TEMP 36.8; O2SAT 97
[2021-05-27] MEDS: fentaNYL 12 MCG PATCH TD (18:52)
[2021-05-27 19:09] VITALS: BP 138/80; PULSE 82; RESP 16; TEMP 36.7; O2SAT 96
[2021-05-27] MEDS: diazePAM 5 MG TAB 2.5 MG PO (21:47)
[2021-05-27] MEDS: Gabapentin 300 MG CAP 600 MG PO (21:47)
[2021-05-27] MEDS: diphenhydrAMINE 25 MG CAP 50 MG PO (21:48)
[2021-05-27] MEDS: Melatonin 3 MG TAB 9 MG PO (21:49)
[2021-05-27] MEDS: HYDROmorphone 2 MG TAB PO (21:49)
[2021-05-27 23:57] VITALS: BP 138/80; PULSE 82; RESP 16; TEMP 36.7; O2SAT 96
[2021-05-28] MEDS: Normal Saline 1,000 ML 125 ML IV ×2 (00:06→15:35)
[2021-05-28] MEDS: HYDROmorphone 2 MG/ML VIAL 1.5 MG IVP ×2 (00:17→21:04)
[2021-05-28] MEDS: CIPROFLOXACIN 400 MG/200 ML BAG 200 MG IVPB ×3 (01:58→17:16)
[2021-05-28 03:42] VITALS: BP 138/70; PULSE 80; RESP 16; TEMP 36.7; O2SAT 98
[2021-05-28] MEDS: VANCOMYCIN/WATER (PEG) 1 GM/200 ML BAG IV (05:55)
[2021-05-28 07:07] LABS: Abs Immature Grans 0.03 10^3/uL (0.0-0.06); Absolute Basophil Count 0.02 10^3/uL (0.0-0.2); Absolute Eosinophil Count 0.34 10^3/uL (0.0-0.7); Absolute Lymphocyte Count 1.15 10^3/uL (1.2-3.4); Absolute Monocyte Count 0.64 10^3/uL (0.1-0.8); Absolute Neutrophil Count 3.19 10^3/uL (1.2-6.7); Basophils % 0.4; Eosinophils % 6.3; HCT 29.9 % (40.0-50.0); HGB 9.6 g/dL (13.5-17.5); Immature Grans % 0.6; Lymphocytes % 21.4; MCH 28.1 pg (27.0-33.0); MCHC 32.1 % (32.0-36.0); MCV 87.4 fL (80-95); MPV 10.6 fL (8.0-11.0); Monocytes % 11.9; Neutrophils % 59.4; Nucleated RBC 0 %; Platelet Count 186 10^3/uL (130-400); RBC 3.42 10^6/uL (4.36-5.78); RDW-SD 50.7 fL; WBC 5.37 10^3/uL (4.4-10.8)
[2021-05-28 07:12] LABS: Anion Gap 9.2 mmol/L (3-11); BUN 16 mg/dL (7-18); CO2 25.8 mmol/L (21.0-32.0); CREATININE 0.5 mg/dL (0.70-1.30); Calcium 9.7 mg/dL (8.5-10.1); Chloride 109 mmol/L (98-107); Glucose 108 mg/dL (74-106); Magnesium 1.3 mg/dL (1.8-2.4); Potassium 3.5 mmol/L (3.5-5.1); Sodium 144 mmol/L (136-145)
[2021-05-28 07:30] VITALS: BP 158/85; PULSE 70; RESP 20; TEMP 37; O2SAT 97
--- NOTE | 2021-05-28 07:45 | OT.INTREAT ---
Date of service: 05/28/21 Time of Service: 08:55 Occupational Therapy Notes Occupational Therapy Inpatient Treatment Note Date: 05/29/21 PRECAUTIONS: Fall, standard, DNR/DNI SUBJECTIVE: Pt was lying in bed when OT arrived, he is agreeable to OT session and notes that he is feeling better. OBJECTIVE: PAIN:c/o pain in (B) UE (L) > (R) Manual Therapy [id number]: OT performed joint blocking techniques, manual mobilization to pts (B) UE with PROM to pts wrists, forearms and digits. Functionally pt performed this with increased (I) with his grasp and release. OT performed AA ROM with tone reduction techniques needed in his (L) UE which is limiting his use of his functional (I) but he has good hand control today and OT has pt perform AROM with goal to continue to increase his functional use of his (B) UE for his ADLs. Pt has edema in his (R) dorsal hand and into his forearm/elbow. This is remarkable since last session and OT discusses this with RN for assessment as needed. OT recommends: 1. Hospital bed with alternating pressure for increased care of pts wounds and medically necessary due to pts decreased functional mobility and high risk of wounds. 2. A christa lift for transportation to and from bed to wheelchair etc.. to increase pts safety and pressure relief on his body during transfers. 3. His electric wheelchair transferred from [facility]- pt reports that he has an electric wheelchair at the facility and they are waiting for him to return home to get this delivered. 4. [place] cuff- this adaptive equipment will be utilized to maximize pts functional (I) in his ADL/IADL routines but supporting his decreased hand function and control 5. OT recommends that pt has HH OT/PT as well as a caregiver 24 hours/day given his high needs and inability to cook, clean and take care of his toileting routines. Pt will also need (A) with functional mobility and will be unable to perform this without (A). 6. Plate scoop- to increased pts functional (I) with his eating routine. 7. Caregiver training for ADLs and (A) with ADL routines 8. Ramp to get in and out of residence TREATMENT CODES/TIME: [id number], 10 minutes (08:55) Michelle Pearce, OTR/L [facility]
[2021-05-28] MEDS: Senna TAB 2 TAB PO ×2 (08:02→21:00)
[2021-05-28] MEDS: Multivitamin w/Minerals TAB 1 TAB PO (08:02)
[2021-05-28] MEDS: Dronabinol 2.5 MG CAP PO ×2 (08:02→11:57)
[2021-05-28] MEDS: Magnesium Chloride 64 MG TABCR PO (08:03)
[2021-05-28] MEDS: DULoxetine 30 MG CAP 90 MG PO (08:03)
[2021-05-28] MEDS: Apixaban 5 MG TAB PO ×2 (08:04→21:04)
[2021-05-28] MEDS: Pantoprazole 40 MG TABCR PO (08:04)
[2021-05-28] MEDS: Docusate Sodium 100 MG CAP PO ×3 (08:04→21:02)
[2021-05-28] MEDS: Methylphenidate 10 MG TAB PO ×2 (08:04→11:57)
[2021-05-28] MEDS: Ascorbic Acid 500 MG TAB PO ×2 (08:04→21:03)
[2021-05-28] MEDS: Gabapentin 300 MG CAP PO ×3 (08:04→21:00)
[2021-05-28] MEDS: Baclofen 10 MG TAB PO ×3 (08:05→21:03)
[2021-05-28] MEDS: Polyethylene Glycol 3350 17 GM PACKET PO (08:05)
[2021-05-28] MEDS: cefTRIAXone 2 GM/50 ML BAG IVPB (08:05)
[2021-05-28] MEDS: busPIRone 5 MG TAB 20 MG PO ×2 (08:05→21:04)
[2021-05-28] MEDS: Protein Nutritional Supplement 16 GM 1 OUNCE PACKET PO ×2 (08:05→20:59)
[2021-05-28] MEDS: Lidocaine 5% Patch 2 PATCH TP (08:06)
--- NOTE | 2021-05-28 08:32 | CMPROGNOTE_ITS ---
- If Service Date Differs Date of service: 05/28/21 Time of Service: 08:33 Care Management Progress Note S/O:Favio was lying in bed when CM met with him. he admitted to feeling well, stating I'm having a really good day. He was smiling and stated that his pain was well controlled. 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 CM will follow up. nicki also again expressed gratitude for all of the wonderful care Favio is receiving at [facility]. A: Favio is a 56 year old man admitted on 02/22/21 with constipation. Since then Favio alternated between acute stays and SB-[facility], never leaving the facility. On 05/26/21 he was transferred from SB1 to acute due to urosepsis. 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 A second application (complete) was submitted last week. When approved, he will likely go to a SNF for additional rehab before possible going to live with Nicki, the mother of his children and good friend. He will follow up with his community providers and transport via ambulance. CM will continue to support Favio and his family and his discharge planning needs.
[2021-05-28] MEDS: MAGNESIUM SULFATE 4 GM/100 ML BAG IVPB (09:11)
--- NOTE | 2021-05-28 09:11 | W.PM.PROGNOT ---
Date of Service Date of service: 05/28/21 Time of Service: 09:11 Assessment and Plan Assessment and plan (1) Sepsis: Status: Acute Assessment and plan: no further fever, white count normalized, back to baseline continue ceftriaxone, cipro, and (vanco for osteo) until results blood cultures pending urine culture growing gram negative rods Suprapubic changed 2 days ago follow labs Qualifiers: Sepsis acute organ dysfunction status: unspecified Sepsis type: sepsis due to unspecified organism Qualified Code(s): A41.9 - Sepsis, unspecified organism (2) Fever: Status: Resolved Assessment and plan: resolved Qualifiers: Fever type: post-procedural Qualified Code(s): R50.82 - Postprocedural fever (3) UTI (urinary tract infection): Status: Acute Assessment and plan: as above cx pending Qualifiers: Encounter type: initial encounter Indwelling urinary catheter type: indwelling urethral catheter Urinary tract infection type: catheter-associated UTI Qualified Code(s): T83.511A - Infection and inflammatory reaction due to indwelling urethral catheter, initial encounter; N39.0 - Urinary tract infection, site not specified (4) Indwelling catheter replaced: Status: Acute Assessment and plan: changed on 05/26 (5) Low magnesium level: Status: Resolved Assessment and plan: Mag level 1.3, received 4 gm IVPB. will follow (6) Acute osteomyelitis of sacrum: Status: Acute Assessment and plan: Continue vanco x 6 weeks doing well. Unable to visualize wound as wound vac in place, He also will be on cipro for 6 weeks for osteo. Dilaudid for drsg changes IV or PO per patient discretion he will likely have acute on chronic osteo of sacrum requiring doses of vanco per previous conversation with ID. He has appt on Jun 18 with [facility] trying for plastics and wound for possible wound flap (7) Major depressive disorder: Status: Chronic Assessment and plan: Mood is very good. He feels well. Does not feel sick Qualifiers: Active/Remission status: currently active Major depression episode severity: moderate Major depression recurrence: single episode Qualified Code(s): F32.1 - Major depressive disorder, single episode, moderate (8) Hx of caloric malnutrition: Status: Chronic Assessment and plan: placed on ritalin and marinol which has dramatically improved appetite (9) Quadriplegia: Status: Chronic Assessment and plan: cont. P.T. to work with patient He is able to move his middle finger on his right hand slightly which is new for him He has appt with [facility] on June 18 for paralysis center to determine if surgery is an option (10) Neurogenic bladder: Status: Chronic Assessment and plan: as above (11) S/P colostomy: Status: Chronic Assessment and plan: with semiformed stool, pink stoma (12) DVT (deep venous thrombosis): Status: Chronic Assessment and plan: On apixaban for RLE DVT Qualifiers: Affected thrombotic vein of extremity: femoral Chronicity: acute DVT location: lower extremity Laterality: right Qualified Code(s): I82.411 - Acute embolism and thrombosis of right femoral vein (13) Discharge planning issues: Status: Acute Assessment and plan: He wants to go home to live with his ex Nicki who has agreed to take care of him with support and equipment while his house is being built. He will require alot of care. However I don't think that should happen until after his appt with [facility], for one hoping they will keep him and do surgery earlier than october and plastics will be able to see him and 2 that due to his antibiotic regimen he should really stay in the hospital until that is finished to make sure he is safe for discharge to home vs LTC facility. Case management is working with family to help with safe discharge and to make sure all needs can be met to make discharge happen above discussed with Dr. tillman Subjective Subjective Patient reports: no new complaints, feels better, tolerating liquids well and afebrile Exam Const General: cooperative, comfortable, no acute distress, frail appearing and ill appearing chronically Nutritional Appearance: thin Orientation: alert, awake and oriented x3 Eyes Sclera: sclerae normal Resp Effort & Inspection: normal respiratory effort Cardio Rate: regular rate Rhythm: regular rhythm GI Inspection: normal to inspection (colostomy functioning) Palpation: soft General: other (suprapubic cath draining well.) Skin Lesions: other (wounds not seen today) Neuro General: patient alert, patient awake and patient oriented x3 Extrem General: abnormal to inspection (flacid lower, contracted hands. ) Objective Last Vital Signs Temp 36.7 C 05/28/21 03:42 Pulse 80 05/28/21 03:42 Resp 16 05/28/21 03:42 BP 138/70 05/28/21 03:42 Pulse Ox 98 05/28/21 03:42 Laboratory Results - last 24 hr 05/28/21 05/28/21 06:45 06:45 WBC 5.37 RBC 3.42 L Hgb 9.6 L Hct 29.9 L MCV 87.4 MCH 28.1 MCHC 32.1 RDW 16.0 H Plt Count 186 MPV 10.6 Immature Gran % 0.6 Neutrophils % 59.4 Lymphocytes % 21.4 Monocytes % 11.9 Eosinophils % 6.3 Basophils % 0.4 Nucleated RBC % 0 Absolute Neutrophils 3.19 Absolute Lymphocytes 1.15 L Absolute Monocytes 0.64 Absolute Eosinophils 0.34 Absolute Basophils 0.02 Sodium 144 Potassium 3.5 Chloride 109 H Carbon Dioxide 25.8 Anion Gap 9.2 BUN 16 D Creatinine 0.5 L Estimated GFR/1.73 m2 >= 60.00 Glucose 108 H Calcium 9.7 Magnesium 1.3 L
[2021-05-28] MEDS: Normal Saline 500 ML 30 ML IV (09:12)
[2021-05-28] MEDS: Normal Saline Flush 10 ML SYR IVP ×4 (09:13→21:07)
[2021-05-28 09:20] LABS: C-Reactive Protein 10.17 mg/dL (0.0-0.3)
[2021-05-28] MEDS: HYDROmorphone 2 MG/ML VIAL IVP (09:56)
[2021-05-28] MEDS: Acetaminophen 500 MG TAB 1000 MG PO ×2 (14:21→21:03)
[2021-05-28 16:12] VITALS: BP 149/81; PULSE 76; RESP 18; TEMP 37.2; O2SAT 96
[2021-05-28 16:42] LABS: Vancomycin, Trough 12.1 ug/mL (10.0-20.0)
[2021-05-28] MEDS: VANCOMYCIN/WATER (PEG) 1.25 GM/250 ML BAG IV (17:16)
[2021-05-28 19:55] VITALS: BP 154/86; PULSE 74; RESP 16; TEMP 37.2; O2SAT 97
[2021-05-28] MEDS: Gabapentin 300 MG CAP 600 MG PO (21:00)
[2021-05-28] MEDS: diazePAM 5 MG TAB 2.5 MG PO (21:00)
[2021-05-28] MEDS: Melatonin 3 MG TAB 9 MG PO (21:01)
[2021-05-28] MEDS: Potassium Chloride 20 MEQ TABCR PO (21:01)
[2021-05-28] MEDS: diphenhydrAMINE 25 MG CAP 50 MG PO (21:01)
[2021-05-28] MEDS: HYDROmorphone 2 MG TAB PO (21:03)
[2021-05-29 00:50] VITALS: BP 152/84; PULSE 74; RESP 16; TEMP 37.2; O2SAT 97
[2021-05-29] MEDS: CIPROFLOXACIN 400 MG/200 ML BAG 200 MG IVPB ×4 (02:01→19:59)
[2021-05-29] MEDS: VANCOMYCIN/WATER (PEG) 1.25 GM/250 ML BAG IV ×2 (03:38→17:30)
[2021-05-29 07:23] LABS: Abs Immature Grans 0.04 10^3/uL (0.0-0.06); Absolute Basophil Count 0.02 10^3/uL (0.0-0.2); Absolute Eosinophil Count 0.34 10^3/uL (0.0-0.7); Absolute Lymphocyte Count 1.24 10^3/uL (1.2-3.4); Absolute Monocyte Count 0.66 10^3/uL (0.1-0.8); Absolute Neutrophil Count 2.88 10^3/uL (1.2-6.7); Basophils % 0.4; Eosinophils % 6.6; HCT 31.8 % (40.0-50.0); HGB 10.1 g/dL (13.5-17.5); Immature Grans % 0.8; Lymphocytes % 23.9; MCH 27.7 pg (27.0-33.0); MCHC 31.8 % (32.0-36.0); MCV 87.4 fL (80-95); MPV 10.4 fL (8.0-11.0); Monocytes % 12.7; Neutrophils % 55.6; Nucleated RBC 0 %; Platelet Count 205 10^3/uL (130-400); RBC 3.64 10^6/uL (4.36-5.78); RDW 15.7 % (11.8-14.1); RDW-SD 50.4 fL; WBC 5.18 10^3/uL (4.4-10.8)
[2021-05-29 07:35] LABS: Anion Gap 10.1 mmol/L (3-11); BUN 18 mg/dL (7-18); CO2 24.9 mmol/L (21.0-32.0); CREATININE 0.7 mg/dL (0.70-1.30); Calcium 9.8 mg/dL (8.5-10.1); Chloride 110 mmol/L (98-107); Glucose 91 mg/dL (74-106); Magnesium 1.5 mg/dL (1.8-2.4); Potassium 3.9 mmol/L (3.5-5.1); Sodium 145 mmol/L (136-145)
[2021-05-29] MEDS: cefTRIAXone 2 GM/50 ML BAG IVPB (07:45)
[2021-05-29] MEDS: Methylphenidate 10 MG TAB PO ×2 (07:46→11:40)
[2021-05-29] MEDS: Pantoprazole 40 MG TABCR PO (07:46)
[2021-05-29] MEDS: Dronabinol 2.5 MG CAP PO ×2 (07:46→11:40)
[2021-05-29] MEDS: Lidocaine 5% Patch 2 PATCH TP (07:46)
[2021-05-29] MEDS: Normal Saline Flush 10 ML SYR IVP ×3 (07:53→22:16)
[2021-05-29 08:12] VITALS: BP 163/88; PULSE 76; RESP 19; TEMP 36.6; O2SAT 94
[2021-05-29] MEDS: Protein Nutritional Supplement 16 GM 1 OUNCE PACKET PO ×2 (08:30→22:11)
[2021-05-29] MEDS: Senna TAB 2 TAB PO ×2 (08:30→22:08)
[2021-05-29] MEDS: Polyethylene Glycol 3350 17 GM PACKET PO (08:30)
[2021-05-29] MEDS: Apixaban 5 MG TAB PO ×2 (08:30→22:10)
[2021-05-29] MEDS: Ascorbic Acid 500 MG TAB PO ×2 (08:31→22:09)
[2021-05-29] MEDS: Docusate Sodium 100 MG CAP PO ×3 (08:31→22:10)
[2021-05-29] MEDS: Baclofen 10 MG TAB PO ×3 (08:31→22:09)
[2021-05-29] MEDS: Multivitamin w/Minerals TAB 1 TAB PO (08:31)
[2021-05-29] MEDS: DULoxetine 30 MG CAP 90 MG PO (08:31)
[2021-05-29] MEDS: Potassium Chloride 20 MEQ TABCR PO ×2 (08:31→22:10)
[2021-05-29] MEDS: busPIRone 5 MG TAB 20 MG PO ×2 (08:31→22:09)
[2021-05-29] MEDS: Magnesium Chloride 64 MG TABCR PO (08:31)
[2021-05-29] MEDS: Gabapentin 300 MG CAP PO ×3 (08:32→22:09)
--- NOTE | 2021-05-29 08:58 | OTTR_ITS ---
Date of service: 05/29/21 Time of Service: 08:35 Occupational Therapy Notes Occupational Therapy Inpatient Treatment Note Date: 05/29/21 PRECAUTIONS: Fall, standard, DNR/DNI SUBJECTIVE: Pt was sitting in his bed when OT arrived. He is agreeable to OT session noting that his eating routine is going ok but he is having difficulty with his spoon. OBJECTIVE: PAIN:c/o pain in (B) UE (L) > (R) Eating: OT and pt went over eating routine, hand placement and adaptive equipment, pt lacks the rotation in the wrist to perform eating with a spoon without modification. OT assessed pts rotational movements, eating demands and sitting position to increase his overall (I). Plan is that OT will fabricate an adaptive eating tool for pt to be able to eat with a spoon (I). OT recommends: 1. Hospital bed with alternating pressure for increased care of pts wounds and medically necessary due to pts decreased functional mobility and high risk of wounds. 2. A christa lift for transportation to and from bed to wheelchair etc.. to increase pts safety and pressure relief on his body during transfers. 3. His electric wheelchair transferred from [facility]- pt reports that he has an electric wheelchair at the facility and they are waiting for him to return home to get this delivered. 4. [place] cuff- this adaptive equipment will be utilized to maximize pts functional (I) in his ADL/IADL routines but supporting his decreased hand function and control 5. OT recommends that pt has HH OT/PT as well as a caregiver 24 hours/day given his high needs and inability to cook, clean and take care of his toileting routines. Pt will also need (A) with functional mobility and will be unable to perform this without (A). 6. Plate scoop- to increased pts functional (I) with his eating routine. 7. Caregiver training for ADLs and (A) with ADL routines 8. Ramp to get in and out of residence TREATMENT CODES/TIME: [id number], 15 minutes (08:35) Michelle Pearce OTR/L [facility]
[2021-05-29 09:07] LABS: Prealbumin 17 mg/dL (20-40)
[2021-05-29] MEDS: Spironolactone 25 MG TAB PO (09:31)
[2021-05-29] MEDS: amLODIPine 10 MG TAB PO (09:31)
--- NOTE | 2021-05-29 10:20 | CMPROGNOTE_ITS ---
- If Service Date Differs Date of service: 05/29/21 Time of Service: 10:20 Care Management Progress Note S/O:Favio was lying in bed when CM met with him. He seemed subdued today but reassured CM that he is doing OK. While CM was visiting, Ani from PT came to see him and asked if he wanted to get up in the chair today. Favio stated that he was not sure. Ani indicated that she would come back and check in this afternoon. After she left Favio shared that his son wants to come and see him. Because he is not vaccinated, the visit would have to be outside. Favio shared that Nicki plans to coordinate a visit with Favio, Luz their daughter and their son sometime soon. Medically, Favio remains stable. His urine and blood cultures still have not been speciated but he remains afebrile and asymptomatic. A: Favio is a 56 year old man admitted on 02/22/21 with constipation. Since then Favio alternated between acute stays and SB[facility], never leaving the facility. On 05/26/21 he was transferred from SB[facility] to acute due to urosepsis. 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 A second application (complete) was submitted last week. When approved, he will likely go to a SNF for additional rehab before possible going to live with Nicki, the mother of his children and good friend. He will follow up with his community providers and transport via ambulance. CM will continue to support Favio and his family and his discharge planning needs.
[2021-05-29] MEDS: Bacitracin 1 PACKET (11:21)
[2021-05-29] MEDS: Normal Saline 500 ML 30 ML IV (11:42)
[2021-05-29 11:44] VITALS: BP 165/79; PULSE 78; RESP 19; TEMP 36.9; O2SAT 94
--- NOTE | 2021-05-29 12:11 | W.PM.PROGNOT ---
Date of Service Date of service: 05/29/21 Time of Service: 12:11 Assessment and Plan Assessment and plan (1) Sepsis: Status: Acute Assessment and plan: no further fever, white count normalized, back to baseline continue ceftriaxone, cipro, and (vanco for osteo) until results blood cultures pending urine culture growing gram negative rods Suprapubic changed 2 days ago follow labs Qualifiers: Sepsis type: sepsis due to unspecified organism Sepsis acute organ dysfunction status: unspecified Qualified Code(s): A41.9 - Sepsis, unspecified organism (2) Fever: Status: Resolved Assessment and plan: resolved Qualifiers: Fever type: post-procedural Qualified Code(s): R50.82 - Postprocedural fever (3) UTI (urinary tract infection): Status: Acute Assessment and plan: as above cx pending Qualifiers: Urinary tract infection type: catheter-associated UTI Indwelling urinary catheter type: indwelling urethral catheter Encounter type: initial encounter Qualified Code(s): T83.511A - Infection and inflammatory reaction due to indwelling urethral catheter, initial encounter; N39.0 - Urinary tract infection, site not specified (4) Indwelling catheter replaced: Status: Acute Assessment and plan: changed on 05/26 (5) Low magnesium level: Status: Resolved Assessment and plan: Mag level 1.3, received 4 gm IVPB. will follow (6) Acute osteomyelitis of sacrum: Status: Acute Assessment and plan: Continue vanco x 6 weeks doing well. Unable to visualize wound as wound vac in place, He also will be on cipro for 6 weeks for osteo. Dilaudid for drsg changes IV or PO per patient discretion he will likely have acute on chronic osteo of sacrum requiring doses of vanco per previous conversation with ID. He has appt on Jun 18 with [facility] trying for plastics and wound for possible wound flap (7) Major depressive disorder: Status: Chronic Assessment and plan: Mood is very good. He feels well. Does not feel sick Qualifiers: Major depression recurrence: single episode Active/Remission status: currently active Major depression episode severity: moderate Qualified Code(s): F32.1 - Major depressive disorder, single episode, moderate (8) Hx of caloric malnutrition: Status: Chronic Assessment and plan: placed on ritalin and marinol which has dramatically improved appetite (9) Quadriplegia: Status: Chronic Assessment and plan: cont. P.T. to work with patient He is able to move his middle finger on his right hand slightly which is new for him He has appt with [facility] on June 18 for paralysis center to determine if surgery is an option (10) Neurogenic bladder: Status: Chronic Assessment and plan: as above (11) S/P colostomy: Status: Chronic Assessment and plan: with semiformed stool, pink stoma (12) DVT (deep venous thrombosis): Status: Chronic Assessment and plan: On apixaban for RLE DVT Qualifiers: DVT location: lower extremity Affected thrombotic vein of extremity: femoral Chronicity: acute Laterality: right Qualified Code(s): I82.411 - Acute embolism and thrombosis of right femoral vein (13) Discharge planning issues: Status: Acute Assessment and plan: He wants to go home to live with his ex Nicki who has agreed to take care of him with support and equipment while his house is being built. He will require alot of care. However I don't think that should happen until after his appt with [facility], for one hoping they will keep him and do surgery earlier than october and plastics will be able to see him and 2 that due to his antibiotic regimen he should really stay in the hospital until that is finished to make sure he is safe for discharge to home vs LTC facility. Case management is working with family to help with safe discharge and to make sure all needs can be met to make discharge happen above discussed with Dr. tillman Subjective Subjective Patient reports: no new complaints, feels better, tolerating liquids well, tolerating a regular diet and afebrile Exam Const General: cooperative, comfortable, no acute distress, frail appearing and ill appearing chronically Nutritional Appearance: thin Orientation: alert, awake and oriented x3 Eyes Sclera: sclerae normal Resp Effort & Inspection: normal respiratory effort Cardio Rate: regular rate Rhythm: regular rhythm GI Inspection: normal to inspection (colostomy functioning) Palpation: soft General: other (suprapubic cath draining well.) Skin Lesions: other (wounds not seen today) Neuro General: patient alert, patient awake and patient oriented x3 Extrem General: abnormal to inspection (flacid lower, contracted hands. ) Objective Last Vital Signs Temp 36.9 C 05/29/21 11:44 Pulse 78 05/29/21 11:44 Resp 19 05/29/21 11:44 BP 165/79 H 05/29/21 11:44 Pulse Ox 94 05/29/21 11:44 Laboratory Results - last 24 hr 05/28/21 05/28/21 05/29/21 06:45 16:05 06:49 WBC RBC Hgb Hct MCV MCH MCHC RDW Plt Count MPV Immature Gran % Neutrophils % Lymphocytes % Monocytes % Eosinophils % Basophils % Nucleated RBC % Absolute Neutrophils Absolute Lymphocytes Absolute Monocytes Absolute Eosinophils Absolute Basophils Sodium 145 Potassium 3.9 Chloride 110 H Carbon Dioxide 24.9 Anion Gap 10.1 BUN 18 Creatinine 0.7 Estimated GFR/1.73 m2 >= 60.00 Glucose 91 Calcium 9.8 Magnesium 1.5 L Prealbumin 17 L Vancomycin Trough 12.1 05/29/21 06:49 WBC 5.18 RBC 3.64 L Hgb 10.1 L Hct 31.8 L MCV 87.4 MCH 27.7 MCHC 31.8 L RDW 15.7 H Plt Count 205 MPV 10.4 Immature Gran % 0.8 Neutrophils % 55.6 Lymphocytes % 23.9 Monocytes % 12.7 Eosinophils % 6.6 Basophils % 0.4 Nucleated RBC % 0 Absolute Neutrophils 2.88 Absolute Lymphocytes 1.24 Absolute Monocytes 0.66 Absolute Eosinophils 0.34 Absolute Basophils 0.02 Sodium Potassium Chloride Carbon Dioxide Anion Gap BUN Creatinine Estimated GFR/1.73 m2 Glucose Calcium Magnesium Prealbumin Vancomycin Trough
[2021-05-29] MEDS: Acetaminophen 500 MG TAB 1000 MG PO ×2 (13:25→22:10)
[2021-05-29] MEDS: HYDROmorphone 2 MG/ML VIAL IVP (18:04)
[2021-05-29 19:25] VITALS: BP 145/87; PULSE 80; RESP 18; TEMP 36.2; O2SAT 96
[2021-05-29] MEDS: Gabapentin 300 MG CAP 600 MG PO (22:09)
[2021-05-29] MEDS: Melatonin 3 MG TAB 9 MG PO (22:10)
[2021-05-29] MEDS: diazePAM 5 MG TAB 2.5 MG PO (22:10)
[2021-05-29] MEDS: HYDROmorphone 2 MG/ML VIAL 1.5 MG IVP (22:11)
[2021-05-29] MEDS: HYDROmorphone 2 MG TAB PO (22:11)
[2021-05-29] MEDS: diphenhydrAMINE 25 MG CAP 50 MG PO (22:11)
[2021-05-29 23:20] VITALS: BP 131/80; PULSE 80; RESP 18; TEMP 36.8; O2SAT 98
[2021-05-30 03:26] VITALS: BP 161/93; PULSE 66; RESP 18; TEMP 36.2; O2SAT 96
[2021-05-30] MEDS: CIPROFLOXACIN 400 MG/200 ML BAG 200 MG IVPB ×3 (04:14→22:04)
[2021-05-30] MEDS: VANCOMYCIN/WATER (PEG) 1.25 GM/250 ML BAG IV ×2 (05:24→19:38)
[2021-05-30] MEDS: Acetaminophen 500 MG TAB 1000 MG PO ×3 (06:21→22:08)
[2021-05-30] MEDS: Methylphenidate 10 MG TAB PO ×2 (06:21→12:06)
[2021-05-30] MEDS: Dronabinol 2.5 MG CAP PO ×2 (06:21→12:06)
[2021-05-30] MEDS: Lidocaine 5% Patch 2 PATCH TP (08:40)
[2021-05-30] MEDS: Polyethylene Glycol 3350 17 GM PACKET PO (08:40)
[2021-05-30] MEDS: Protein Nutritional Supplement 16 GM 1 OUNCE PACKET PO ×2 (08:40→20:55)
[2021-05-30] MEDS: cefTRIAXone 2 GM/50 ML BAG IVPB (08:40)
[2021-05-30] MEDS: Gabapentin 300 MG CAP PO ×3 (08:41→20:58)
[2021-05-30] MEDS: DULoxetine 30 MG CAP 90 MG PO (08:41)
[2021-05-30] MEDS: busPIRone 5 MG TAB 20 MG PO ×2 (08:41→20:59)
[2021-05-30] MEDS: Magnesium Chloride 64 MG TABCR PO (08:41)
[2021-05-30] MEDS: Senna TAB 2 TAB PO ×2 (08:41→20:55)
[2021-05-30] MEDS: Ascorbic Acid 500 MG TAB PO ×2 (08:42→21:00)
[2021-05-30] MEDS: Apixaban 5 MG TAB PO ×2 (08:42→21:00)
[2021-05-30] MEDS: Spironolactone 25 MG TAB PO (08:42)
[2021-05-30] MEDS: Docusate Sodium 100 MG CAP PO ×3 (08:42→21:00)
[2021-05-30] MEDS: amLODIPine 10 MG TAB PO (08:42)
[2021-05-30] MEDS: Potassium Chloride 20 MEQ TABCR PO ×2 (08:42→20:59)
[2021-05-30] MEDS: Baclofen 10 MG TAB PO ×3 (08:42→20:59)
[2021-05-30] MEDS: Multivitamin w/Minerals TAB 1 TAB PO (08:42)
[2021-05-30] MEDS: Pantoprazole 40 MG TABCR PO (08:42)
[2021-05-30] MEDS: Normal Saline Flush 10 ML SYR IVP ×4 (08:44→22:06)
--- NOTE | 2021-05-30 10:10 | OTTR_ITS ---
Date of service: 05/30/21 Time of Service: 09:40 Occupational Therapy Notes Occupational Therapy Inpatient Treatment Note Date: 05/30/21 PRECAUTIONS: Fall, standard, DNR/DNI SUBJECTIVE: Pt was sitting in his bed when OT arrived. He is agreeable to OT session, he states that he is getting nervous about his consult for his (B) hands in June. He states that he questions whether he will get more movement again or not. 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 Limited neck mobility and sitting against the bed is limiting pts functional (I). Pts (L) UE requires mod-max (A) throughout and (R) has more movement and ROM which he requires a min-mod (A). Next session, OT will progress this and discuss with pt one handed techniques if pts (L) UE is unable to tolerate as much movement. OT recommends: 1. Hospital bed with alternating pressure for increased care of pts wounds and medically necessary due to pts decreased functional mobility and high risk of wounds. 2. A christa lift for transportation to and from bed to wheelchair etc.. to increase pts safety and pressure relief on his body during transfers. 3. His electric wheelchair transferred from [facility]- pt reports that he has an electric wheelchair at the facility and they are waiting for him to return home to get this delivered. 4. [place] cuff- this adaptive equipment will be utilized to maximize pts functional (I) in his ADL/IADL routines but supporting his decreased hand function and control 5. OT recommends that pt has HH OT/PT as well as a caregiver 24 hours/day given his high needs and inability to cook, clean and take care of his toileting routines. Pt will also need (A) with functional mobility and will be unable to perform this without (A). 6. Plate scoop- to increased pts functional (I) with his eating routine. 7. Caregiver training for ADLs and (A) with ADL routines 8. Ramp to get in and out of residence TREATMENT CODES/TIME: [id number], 25 minutes (09:40) Michelle Pearce OTR/[facility]
--- NOTE | 2021-05-30 10:48 | PDOC.CMPRO ---
- If Service Date Differs Date of service: 05/30/21 Time of Service: 10:48 Care Management Progress Note S/O:Favio was lying in bed when CM met with him. He indicated that he was feeling well but had not slept much last night. He denied being in pain, stating I just couldn't sleep; sometimes that happens to me. Favio talked about his upcoming appointment at [facility] and admitted that he was looking forward to it, although he is not looking forward to the ambulance ride. He remains afebrile and asymptomatic. The bacteria in his blood and urine was identified as proteus mirabilis, sensitive to Ceftriaxone. A: Favio is a 56 year old man admitted on 02/22/21 with constipation. Since then Favio alternated between acute stays and SB-[facility], never leaving the facility. On 05/26/21 he was transferred from SB1 to acute due to urosepsis. 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 A second application (complete) was submitted last week. When approved, he will likely go to a SNF for additional rehab before possible going to live with Nicki, the mother of his children and good friend. He will follow up with his community providers and transport via ambulance. CM will continue to support Favio and his family and his discharge planning needs.
[2021-05-30 11:55] VITALS: BP 172/136; PULSE 73; RESP 20; TEMP 36.2; O2SAT 98
[2021-05-30] MEDS: HYDROmorphone 2 MG/ML VIAL IVP ×2 (14:44→17:37)
--- NOTE | 2021-05-30 14:44 | PTTR_ITS ---
Date of service: 05/30/21 Time of Service: 11:30 PT Notes Visit Reasons: Urosepsis Inpatient Physical Therapy Treatment Note [facility] Date: 05/30/2021 PRECAUTIONS: Quadriplegia C6-7 SUBJECTIVE: Favio states that he feels nervous that he is going to fall out of the chair when he is sitting in the recliner. He is agreeable to sitting in the chair today, with legs elevated slightly for reassurance. OBJECTIVE: PAIN: Minimal c/o L shoulder discomfort with UE exercises. BED MOBILITY/TRANSFERS: Max A with Dot lift from bed-chair. Patient positioned appropriately with pillow support, bilaterally, as well as beneath B calves to prevent pressure issues. GAIT: Unable THEREX: Patient was instructed in supine punch ups, elbow flexion/extension, and cross-body reach, with assist of L UE with all exercises. Patient tolerated the positional progression, well, although with c/o increased difficulty. ASSESSMENT: Patient tolerated transfer well, and progression of ther ex program with increased difficulty. PLAN: Continue with UE strengthening and core stabilization exercises for improved sitting tolerance, as tolerated. TREATMENT CODE/TIME: 25 minutes: 10 minutes; [id number] (11:40) + 15 minutes; non- billable time
[2021-05-30] MEDS: diazePAM 5 MG TAB PO (14:45)
[2021-05-30 16:21] VITALS: BP 118/75; PULSE 74; RESP 16; TEMP 36.2; O2SAT 97
--- NOTE | 2021-05-30 16:51 | PGE_ITS ---
Date of Service Date of service: 05/30/21 Time of Service: 16:56 Assessment and Plan Assessment and plan (1) Sepsis: Status: Acute Assessment and plan: no further fever, white count normalized, back to baseline continue ceftriaxone, cipro, and (vanco for osteo) blood cultures and urine culture growing proteus, sensitive to ceftriaxone, will complete a 2 week course from last negative results Suprapubic changed follow labs Qualifiers: Sepsis type: sepsis due to unspecified organism Sepsis acute organ dysfunction status: unspecified Qualified Code(s): A41.9 - Sepsis, unspecified organism (2) UTI (urinary tract infection): Status: Acute Assessment and plan: as above proteus sensitive to ceftriaxone Qualifiers: Urinary tract infection type: catheter-associated UTI Indwelling urinary catheter type: indwelling urethral catheter Encounter type: initial encounter Qualified Code(s): T83.511A - Infection and inflammatory reaction due to indwelling urethral catheter, initial encounter; N39.0 - Urinary tract infection, site not specified (3) Indwelling catheter replaced: Status: Acute Assessment and plan: changed on 05/26 (4) Low magnesium level: Status: Resolved Assessment and plan: Mag level 1.3, received 4 gm IVPB. will follow (5) Acute osteomyelitis of sacrum: Status: Acute Assessment and plan: Continue vanco x 6 weeks doing well. Unable to visualize wound as wound vac in place, He also will be on cipro for 6 weeks for osteo. Dilaudid for drsg changes IV or PO per patient discretion he will likely have acute on chronic osteo of sacrum requiring doses of vanco per previous conversation with ID. He has appt on Jun 18 with [facility] trying for plastics and wound for possible wound flap (6) Major depressive disorder: Status: Chronic Assessment and plan: Mood is very good. He feels well. Does not feel sick Qualifiers: Major depression recurrence: single episode Active/Remission status: currently active Major depression episode severity: moderate Qualified Code(s): F32.1 - Major depressive disorder, single episode, moderate (7) Hx of caloric malnutrition: Status: Chronic Assessment and plan: placed on ritalin and marinol which has dramatically improved appetite (8) Quadriplegia: Status: Chronic Assessment and plan: cont. P.T. to work with patient He is able to move his middle finger on his right hand slightly which is new for him He has appt with [facility] on June 18 for paralysis center to determine if surgery is an option (9) Neurogenic bladder: Status: Chronic Assessment and plan: as above (10) S/P colostomy: Status: Chronic Assessment and plan: with semiformed stool, pink stoma (11) DVT (deep venous thrombosis): Status: Chronic Assessment and plan: On apixaban for RLE DVT Qualifiers: DVT location: lower extremity Affected thrombotic vein of extremity: femoral Chronicity: acute Laterality: right Qualified Code(s): I82.411 - Acute embolism and thrombosis of right femoral vein (12) Discharge planning issues: Status: Acute Assessment and plan: He wants to go home to live with his ex Nicki who has agreed to take care of him with support and equipment while his house is being built. He will require alot of care. However I don't think that should happen until after his appt with [facility] , for one hoping they will keep him and do surgery earlier than october and plastics will be able to see him and 2 that due to his antibiotic regimen he should really stay in the hospital until that is finished to make sure he is safe for discharge to home vs LTC facility. Case management is working with family to help with safe discharge and to make sure all needs can be met to make discharge happen should be stable to discharge to [facility] level care tomorrow. above discussed with Dr. tillman Subjective Subjective Patient reports: no new complaints, feels better, tolerating liquids well, tolerating a regular diet and afebrile Exam Const General: cooperative, comfortable, no acute distress, frail appearing and ill appearing chronically Nutritional Appearance: thin Orientation: alert, awake and oriented x3 Eyes Sclera: sclerae normal Resp Effort & Inspection: normal respiratory effort Cardio Rate: regular rate Rhythm: regular rhythm GI Inspection: normal to inspection (colostomy functioning) Palpation: soft General: other (suprapubic cath draining well.) Skin Lesions: other (wounds not seen today) Neuro General: patient alert, patient awake and patient oriented x3 Extrem General: abnormal to inspection (flacid lower, contracted hands. ) Objective Last Vital Signs Temp 36.2 C L 05/30/21 16:21 Pulse 74 05/30/21 16:21 Resp 16 05/30/21 16:21 BP 118/75 05/30/21 16:21 Pulse Ox 97 05/30/21 16:21 Laboratory Results - last 24 hr 05/30/21 13:00 Vancomycin Trough Cancelled
[2021-05-30] MEDS: fentaNYL 12 MCG PATCH TD (17:38)
[2021-05-30 17:57] LABS: Vancomycin, Trough 16.5 ug/mL (10.0-20.0)
--- NOTE | 2021-05-30 19:47 | WOUNDCONS ---
- If Service Date Differs Date of service: 05/30/21 Time of Service: 18:00 Wound Initial Evaluation Narrative: Pt seen for weekly reconsult for bilateral ischial tuberosity wounds as well as a sacral shearing injury and right 5th toe intact blister. All measurements taken with wounds in neutral postition. Left ischial tuberosity wound measures 2 cm x 1.7 cm x 1.8 cm with a 2.5 cm tunnel at 12 o clock. Wound bed is dark pink/red with small amount of serosanguinous drainage noted in canister of wound vac. The right ischial tuberosity wound measures 2 cm x 1.2 cm x 1.8 cm with undermining from 3-6 o'clock measuring 1.5 cm. Sacral wound has two partial thickness open areas, the distal measuring 1.8 cm x 0.5 cm x 0.1 cm. The proximal open area measures 2 cm x 0.8 cm x 0.1 cm. The wound beds are pink with scant serous drainage. Right lateral 5th toe blister is not open, no induration noted around periphery. Area measures 2.1 cm x 2.1 cm with no measureable depth. Of note, pt has been sitting in chair with Physical Therapy for strengthening and conditioning this week. - Recomendation Recomendation:: Recommend continue current tx as ordered.
[2021-05-30 20:17] VITALS: BP 104/69; PULSE 71; RESP 17; TEMP 36.5; O2SAT 93
[2021-05-30] MEDS: diphenhydrAMINE 25 MG CAP 50 MG PO (20:57)
[2021-05-30] MEDS: Melatonin 3 MG TAB 9 MG PO (21:00)
[2021-05-30] MEDS: HYDROmorphone 2 MG/ML VIAL 1.5 MG IVP (22:06)
[2021-05-30] MEDS: Gabapentin 300 MG CAP 600 MG PO (22:07)
[2021-05-30] MEDS: HYDROmorphone 2 MG TAB PO (22:07)
[2021-05-30] MEDS: diazePAM 5 MG TAB 2.5 MG PO (22:08)
--- NOTE | 2021-05-31 | DI.CT_ITS ---
Exam(s) CT HEAD WO EXAM: CT HEAD WO CLINICAL HISTORY: new onset headaches on blood thinners. TECHNIQUE: Imaging Protocol: Axial computed tomography images with coronal and sagittal reformatted images were created and reviewed COMPARISON: CT CT HEAD CERVICAL SPINE WO from 10/26/2020 FINDINGS: The ventricular system is normal in appearance. No evidence of acute intracranial hemorrhage, mass effect, or midline shift. The orbital structures are unremarkable. The temporal bone structures appear intact. Calvarium: Normal. Visualized Paranasal sinuses/Mastoids: There minimal mucoperiosteal thickening at multiple sites. Ot herwise negative IMPRESSION: No evidence of acute intracranial process. RADIATION DOSE DELIVERED: 875.27mGy.cm Total DLP 875.27mGy.cm Total DLP CTDIvol DATA REPOSITORY: All CT scans at this facility are submitted to the National Radiology Data Registry (NRDR) Dose Index Registry (DIR) with the [employer] (ACR). RADIATION OPTIMIZATION: All CT scans at this facility use at least one of these dose optimization te chniques: automated exposure control; mA and/or kV adjustment per patient size (includes targeted exa ms where dose is matched to clinical indication); or iterative reconstruction.
[2021-05-31] MEDS: HYDROmorphone 2 MG/ML VIAL IVP ×2 (02:59→13:50)
[2021-05-31] MEDS: Normal Saline Flush 10 ML SYR IVP ×3 (02:59→22:03)
[2021-05-31 04:00] VITALS: BP 87/52; PULSE 68; RESP 20; TEMP 36.6; O2SAT 95
[2021-05-31] MEDS: CIPROFLOXACIN 400 MG/200 ML BAG 200 MG IVPB ×3 (04:53→22:02)
[2021-05-31] MEDS: Acetaminophen 500 MG TAB 1000 MG PO ×3 (06:48→22:00)
[2021-05-31] MEDS: VANCOMYCIN/WATER (PEG) 1.25 GM/250 ML BAG IV ×2 (06:49→18:26)
[2021-05-31 07:30] VITALS: BP 96/56; RESP 20
[2021-05-31 07:36] LABS: Abs Immature Grans 0.08 10^3/uL (0.0-0.06); Absolute Basophil Count 0.02 10^3/uL (0.0-0.2); Absolute Eosinophil Count 0.38 10^3/uL (0.0-0.7); Absolute Lymphocyte Count 1.33 10^3/uL (1.2-3.4); Absolute Monocyte Count 0.52 10^3/uL (0.1-0.8); Absolute Neutrophil Count 3.14 10^3/uL (1.2-6.7); Basophils % 0.4; Eosinophils % 6.9; HCT 30.7 % (40.0-50.0); HGB 9.8 g/dL (13.5-17.5); Immature Grans % 1.5; Lymphocytes % 24.3; MCH 27.8 pg (27.0-33.0); MCHC 31.9 % (32.0-36.0); MCV 87.2 fL (80-95); Monocytes % 9.5; Neutrophils % 57.4; Nucleated RBC 0 %; RBC 3.52 10^6/uL (4.36-5.78); RDW 15.6 % (11.8-14.1); RDW-SD 49.6 fL; WBC 5.47 10^3/uL (4.4-10.8)
[2021-05-31 07:52] LABS: ALT 35 U/L (16-63); AST 16 U/L (15-37); Albumin 2.5 g/dL (3.4-5.0); Alkaline Phosphatase 76 U/L (46-116); Anion Gap 9.1 mmol/L (3-11); BUN 21 mg/dL (7-18); Bilirubin, Total 0.1 mg/dL (0.2-1.0); CO2 23.9 mmol/L (21.0-32.0); CREATININE 0.5 mg/dL (0.70-1.30); Calcium 9.6 mg/dL (8.5-10.1); Chloride 108 mmol/L (98-107); Glucose 96 mg/dL (74-106); Magnesium 1.5 mg/dL (1.8-2.4); Sodium 141 mmol/L (136-145); Total Protein 5.8 g/dL (6.4-8.2)
[2021-05-31] MEDS: Protein Nutritional Supplement 16 GM 1 OUNCE PACKET PO ×2 (07:54→22:03)
[2021-05-31] MEDS: Polyethylene Glycol 3350 17 GM PACKET PO (07:54)
[2021-05-31] MEDS: Lidocaine 5% Patch 2 PATCH TP (07:54)
[2021-05-31] MEDS: busPIRone 5 MG TAB 20 MG PO ×2 (07:55→21:59)
[2021-05-31] MEDS: Pantoprazole 40 MG TABCR PO (07:55)
[2021-05-31] MEDS: Docusate Sodium 100 MG CAP PO ×3 (07:55→22:01)
[2021-05-31] MEDS: Potassium Chloride 20 MEQ TABCR PO (07:55)
[2021-05-31] MEDS: Spironolactone 25 MG TAB PO (07:55)
[2021-05-31] MEDS: Apixaban 5 MG TAB PO ×2 (07:55→22:01)
[2021-05-31] MEDS: Senna TAB 2 TAB PO ×2 (07:55→21:59)
[2021-05-31] MEDS: Ascorbic Acid 500 MG TAB PO ×2 (07:55→22:00)
[2021-05-31] MEDS: amLODIPine 10 MG TAB PO (07:55)
[2021-05-31] MEDS: Gabapentin 300 MG CAP PO ×3 (07:55→22:01)
[2021-05-31] MEDS: Multivitamin w/Minerals TAB 1 TAB PO (07:55)
[2021-05-31] MEDS: Magnesium Chloride 64 MG TABCR PO (07:55)
[2021-05-31] MEDS: DULoxetine 30 MG CAP 90 MG PO (07:56)
[2021-05-31] MEDS: Dronabinol 2.5 MG CAP PO ×2 (07:56→12:10)
[2021-05-31] MEDS: Baclofen 10 MG TAB PO ×3 (07:56→22:00)
[2021-05-31 08:07] LABS: Diff Comment Diff Reviewed; Platelet Count 150 10^3/uL (130-400); RBC Morphology Normal
[2021-05-31] MEDS: Methylphenidate 10 MG TAB PO ×2 (08:09→12:10)
--- NOTE | 2021-05-31 08:42 | OTTR_ITS ---
Date of service: 05/31/21 Time of Service: 08:20 Occupational Therapy Notes Occupational Therapy Inpatient Treatment Note Date: 05/31/21 PRECAUTIONS: Fall, standard, DNR/DNI SUBJECTIVE: Pt was sitting in his bed when OT arrived. He is agreeable to OT session noting that his (B) UE are sore after doing his shirt. OBJECTIVE: PAIN:c/o pain in (B) UE (L) > (R) Manual Therapy [id number]: OT performed joint blocking techniques, manual mobili zation to pts (B) UE with PROM to pts wrists, forearms, elbows and digits. Functionally pt performed this with increased (I) with his grasp and release but was sore in his (B) elbows due to dressing routine yesterday with OT. OT performed AA ROM with tone reduction techniques needed in his (L) UE which he tolerated well. Retrograde position performed to (B) elbows. OT will continue to monitor pts response to todays session and progress accordingly. OT recommends: 1. Hospital bed with alternating pressure for increased care of pts wounds and medically necessary due to pts decreased functional mobility and high risk of wounds. 2. A christa lift for transportation to and from bed to wheelchair etc.. to increase pts safety and pressure relief on his body during transfers. 3. His electric wheelchair transferred from [facility]- pt reports that he has an electric wheelchair at the facility and they are waiting for him to return home to get this delivered. 4. [place] cuff- this adaptive equipment will be utilized to maximize pts functional (I) in his ADL/IADL routines but supporting his decreased hand function and control 5. OT recommends that pt has HH OT/PT as well as a caregiver 24 hours/day given his high needs and inability to cook, clean and take care of his toileting routines. Pt will also need (A) with functional mobility and will be unable to perform this without (A). 6. Plate scoop- to increased pts functional (I) with his eating routine. 7. Caregiver training for ADLs and (A) with ADL routines 8. Ramp to get in and out of residence TREATMENT CODES/TIME: 83266, 20 minutes (08:20) Michelle Pearce, OTR/L [facility]
[2021-05-31] MEDS: cefTRIAXone 2 GM/50 ML BAG IVPB (09:04)
[2021-05-31 09:46] VITALS: BP 105/69; PULSE 71; RESP 20; TEMP 35.9; O2SAT 97
[2021-05-31] MEDS: MAGNESIUM SULFATE 4 GM/100 ML BAG IVPB (10:30)
--- NOTE | 2021-05-31 11:31 | PDOC.CMPRO ---
- If Service Date Differs Date of service: 05/31/21 Time of Service: 11:31 Care Management Progress Note S/O:Favio will be transitioned back to [facility] today. A: Favio is a 56 year old man admitted on 02/22/21 with constipation. Since then Favio alternated between acute stays and SB-1, never leaving the facility. On 05/26/21 he was transferred from SB1 to acute due to urosepsis. P: Favio is still awaiting approval for [facility] medicaid. A second application (complete) was submitted last week. When approved, he will likely go to a SNF for additional rehab before possible going to live with Nicki, the mother of his children and good friend. He will follow up with his community providers and transport via ambulance. will continue to support Favio and his family and his discharge planning needs.
--- NOTE | 2021-05-31 13:33 | PTTR_ITS ---
Date of service: 05/31/21 Time of Service: 11:30 PT Notes Visit Reasons: Urosepsis Inpatient Physical Therapy Treatment Note [facility] Date: 05/31/2021 PRECAUTIONS: Quadriplegia C6-7 SUBJECTIVE: Favio is pleasant and looking forward to sitting up in the chair today. OBJECTIVE: PAIN: C/o L shoulder discomfort with exercises. BED MOBILITY/TRANSFERS: Max A with Dot lift from bed-chair. Patient positioned appropriately with pillow support, bilaterally, as well as beneath B calves to prevent pressure issues. GAIT: Unable THEREX: Patient was instructed in B forward reach and lateral side bends to R for improved core stability and strength, with assist of L UE with all exercises. ASSESSMENT: Patient tolerated transfer well, and progression of ther ex program with increased difficulty. PLAN: Continue with UE strengthening and core stabilization exercises for improved sitting tolerance, as tolerated. TREATMENT CODE/TIME: 30 minutes: 15 minutes; 67587 (11:30) + 15 minutes; non- billable time
[2021-05-31] MEDS: diazePAM 5 MG TAB PO (13:51)
--- NOTE | 2021-05-31 18:03 | DI.VRAD_ITS ---
PROCEDURE INFORMATION: Exam: CT Head Without Contrast Exam date and time: 05/31/2021 4:38 PM Age: 56 years old Clinical indication: Pain; Patient HX: New onset headaches on blood thinners TECHNIQUE: Imaging protocol: Computed tomography of the head without contrast. Total images: 1078 COMPARISON: CT HEAD CERVICAL SPINE WO 10/26/2020 8:45 PM FINDINGS: Brain: No extra-axial fluid collections. No evidence of acute intracranial hemorrhage. Tucker-white differentiation is well maintained. No CT evidence of large territory acute or subacute intracranial ischemia/infarct. No intracranial mass lesions. No midline shift or herniation. Cerebral ventricles: Ventricles normal. Paranasal sinuses: Mucosal thickening in the left fronto ethmoid distribution consistent with sinus inflammatory disease. No fluid levels. Mastoid air cells: Visualized mastoid air cells are clear. Orbital cavity: Visualized orbital contents demonstrate no evidence of acute abnormality. Vasculature: Moderate calcific atherosclerosis. No asymmetric vascular hyperdensities suggestive of thrombosis are identified. Bones/joints: The calvarium and visualized facial bones are intact. Soft tissues: The scalp and visualized soft tissues demonstrate no acute abnormality. 16 x 5 mm scalp lipoma in the left occipital scalp. Other findings: The IACs are grossly normal. The sella is grossly normal. IMPRESSION: 1. No acute intracranial process. No intracranial hemorrhage or mass effect. 2. Mild left fronto ethmoid sinusitis. Dictated and Authenticated by: Lauri Pate MD. Ordering:DONNA Del Rio MD
--- NOTE | 2021-05-31 18:10 | W.PM.PROGNOT ---
Date of Service Date of service: 05/31/21 Time of Service: 18:10 Assessment and Plan Assessment and plan (1) Sepsis: Start date: 05/31/21 Start time: 18:22 Status: Acute Assessment and plan: no further fever, white count normalized, back to baseline continue ceftriaxone, cipro, and (vanco for osteo) blood cultures and urine culture growing proteus, sensitive to ceftriaxone, will complete a 2 week course from last negative results Suprapubic changed follow labs he is ready to be swung, will swing tomorrow Qualifiers: Sepsis type: sepsis due to unspecified organism Sepsis acute organ dysfunction status: unspecified Qualified Code(s): A41.9 - Sepsis, unspecified organism (2) UTI (urinary tract infection): Start date: 05/31/21 Start time: 18:23 Status: Acute Assessment and plan: as above proteus sensitive to ceftriaxone Qualifiers: Urinary tract infection type: catheter-associated UTI Indwelling urinary catheter type: indwelling urethral catheter Encounter type: initial encounter Qualified Code(s): T83.511A - Infection and inflammatory reaction due to indwelling urethral catheter, initial encounter; N39.0 - Urinary tract infection, site not specified (3) Indwelling catheter replaced: Start date: 05/31/21 Start time: 18:23 Status: Acute Assessment and plan: changed on 05/26 (4) Low magnesium level: Start date: 05/31/21 Start time: 18:23 Status: Resolved Assessment and plan: Mag level 1.3, received 4 gm IVPB. will follow (5) Acute osteomyelitis of sacrum: Start date: 05/31/21 Start time: 18:23 Status: Acute Assessment and plan: Continue vanco x 6 weeks doing well. Unable to visualize wound as wound vac in place, He also will be on cipro for 6 weeks for osteo. Dilaudid for drsg changes IV or PO per patient discretion he will likely have acute on chronic osteo of sacrum requiring doses of vanco per previous conversation with ID. He has appt on Jun 18 with [facility] trying for plastics and wound for possible wound flap (6) Major depressive disorder: Start date: 05/31/21 Start time: 18:33 Status: Chronic Assessment and plan: Mood is very good. He feels well. Does not feel sick Qualifiers: Major depression recurrence: single episode Active/Remission status: currently active Major depression episode severity: moderate Qualified Code(s): F32.1 - Major depressive disorder, single episode, moderate (7) Hx of caloric malnutrition: Start date: 05/31/21 Start time: 18:33 Status: Chronic Assessment and plan: placed on ritalin and marinol which has dramatically improved appetite (8) Quadriplegia: Start date: 05/31/21 Start time: 18:33 Status: Chronic Assessment and plan: cont. P.T. to work with patient He is able to move his middle finger on his right hand slightly which is new for him He has appt with [facility] on June 18 for paralysis center to determine if surgery is an option (9) Neurogenic bladder: Start date: 05/31/21 Start time: 18:33 Status: Chronic Assessment and plan: as above (10) S/P colostomy: Start date: 05/31/21 Start time: 18:33 Status: Chronic Assessment and plan: with semiformed stool, pink stoma (11) DVT (deep venous thrombosis): Start date: 05/31/21 Start time: 18:34 Status: Chronic Assessment and plan: On apixaban for RLE DVT Qualifiers: DVT location: lower extremity Affected thrombotic vein of extremity: femoral Chronicity: acute Laterality: right Qualified Code(s): I82.411 - Acute embolism and thrombosis of right femoral vein (12) Discharge planning issues: Start date: 05/31/21 Start time: 18:34 Status: Acute Assessment and plan: He wants to go home to live with his ex Nicki who has agreed to take care of him with support and equipment while his house is being built. He will require alot of care. However I don't think that should happen until after his appt with [facility], for one hoping they will keep him and do surgery earlier than october and plastics will be able to see him and 2 that due to his antibiotic regimen he should really stay in the hospital until that is finished to make sure he is safe for discharge to home vs LTC facility. Case management is working with family to help with safe discharge and to make sure all needs can be met to make discharge happen should be stable to discharge to [facility] care tomorrow. above discussed with Dr. tillman Subjective Subjective Patient reports: no new complaints Interval history since last seen: Patient c/o GUEVARA, otherwise no other complaints. Will order CT scan. He states GUEVARA x 1 week off and on this is new he has never had guevara. Given he take eliquis will r/o bleed, vs tension guevara vs migraine. he denies Cp, SOB, N/v/D/. Exam Const General: cooperative, comfortable, no acute distress, frail appearing and ill appearing chronically Nutritional Appearance: thin Orientation: alert, awake and oriented x3 Eyes Sclera: sclerae normal Resp Effort & Inspection: normal respiratory effort Cardio Rate: regular rate Rhythm: regular rhythm GI Inspection: normal to inspection (colostomy functioning) Palpation: soft General: other (suprapubic cath draining well.) Skin Lesions: other (wounds not seen today) Neuro General: patient alert, patient awake and patient oriented x3 Extrem General: abnormal to inspection (flacid lower, contracted hands. ) Objective Last Vital Signs Temp 35.9 C L 05/31/21 09:46 Pulse 71 05/31/21 09:46 Resp 20 05/31/21 09:46 BP 105/69 05/31/21 09:46 Pulse Ox 97 05/31/21 09:46 Laboratory Results - last 24 hr 05/31/21 05/31/21 06:50 06:50 WBC 5.47 RBC 3.52 L Hgb 9.8 L Hct 30.7 L MCV 87.2 MCH 27.8 MCHC 31.9 L RDW 15.6 H Plt Count 150 MPV Immature Gran % 1.5 Neutrophils % 57.4 Lymphocytes % 24.3 Monocytes % 9.5 Eosinophils % 6.9 Basophils % 0.4 Nucleated RBC % 0 Absolute Neutrophils 3.14 Absolute Lymphocytes 1.33 Absolute Monocytes 0.52 Absolute Eosinophils 0.38 Absolute Basophils 0.02 RBC Morphology Normal Sodium 141 Potassium 4.0 Chloride 108 H Carbon Dioxide 23.9 Anion Gap 9.1 BUN 21 H Creatinine 0.5 L Estimated GFR/1.73 m2 >= 60.00 Glucose 96 Calcium 9.6 Magnesium 1.5 L Total Bilirubin 0.1 L AST 16 ALT 35 Alkaline Phosphatase 76 Total Protein 5.8 L Albumin 2.5 L
[2021-05-31 19:11] VITALS: BP 114/68; PULSE 76; RESP 18; TEMP 36.3; O2SAT 98
[2021-05-31] MEDS: Melatonin 3 MG TAB 9 MG PO (21:59)
[2021-05-31] MEDS: diphenhydrAMINE 25 MG CAP 50 MG PO (22:00)
[2021-05-31] MEDS: Gabapentin 300 MG CAP 600 MG PO (22:00)
[2021-05-31] MEDS: HYDROmorphone 2 MG TAB PO (22:01)
[2021-05-31] MEDS: fentaNYL 50 MCG PATCH TD (22:02)
[2021-05-31] MEDS: diazePAM 5 MG TAB 2.5 MG PO (22:02)
[2021-05-31] MEDS: HYDROmorphone 2 MG/ML VIAL 1.5 MG IVP (22:08)
[2021-06-01 00:25] VITALS: BP 121/73; PULSE 76; RESP 16; TEMP 36.7; O2SAT 97
[2021-06-01 03:48] VITALS: BP 100/65; PULSE 75; RESP 17; TEMP 36.4; O2SAT 97
[2021-06-01] MEDS: Normal Saline Flush 10 ML SYR IVP ×2 (05:17→09:26)
[2021-06-01] MEDS: CIPROFLOXACIN 400 MG/200 ML BAG 200 MG IVPB ×2 (05:18→13:57)
[2021-06-01] MEDS: VANCOMYCIN/WATER (PEG) 1.25 GM/250 ML BAG IV (06:44)
[2021-06-01] MEDS: Acetaminophen 500 MG TAB 1000 MG PO ×2 (06:51→13:57)
[2021-06-01] MEDS: Methylphenidate 10 MG TAB PO ×2 (06:51→11:32)
[2021-06-01] MEDS: Dronabinol 2.5 MG CAP PO ×2 (06:51→11:32)
[2021-06-01 07:39] LABS: Abs Immature Grans 0.12 10^3/uL (0.0-0.06); Absolute Basophil Count 0.03 10^3/uL (0.0-0.2); Absolute Eosinophil Count 0.37 10^3/uL (0.0-0.7); Absolute Lymphocyte Count 1.63 10^3/uL (1.2-3.4); Absolute Monocyte Count 0.53 10^3/uL (0.1-0.8); Absolute Neutrophil Count 3.45 10^3/uL (1.2-6.7); Basophils % 0.5; HCT 32.2 % (40.0-50.0); HGB 10.3 g/dL (13.5-17.5); Lymphocytes % 26.6; MCH 27.9 pg (27.0-33.0); MCV 87.3 fL (80-95); MPV 9.8 fL (8.0-11.0); Monocytes % 8.6; Neutrophils % 56.3; Nucleated RBC 0 %; Platelet Count 227 10^3/uL (130-400); RBC 3.69 10^6/uL (4.36-5.78); RDW 15.9 % (11.8-14.1); RDW-SD 50.9 fL; WBC 6.13 10^3/uL (4.4-10.8)
[2021-06-01 07:45] LABS: Anion Gap 8.7 mmol/L (3-11); BUN 23 mg/dL (7-18); CO2 25.3 mmol/L (21.0-32.0); CREATININE 0.6 mg/dL (0.70-1.30); Calcium 9.9 mg/dL (8.5-10.1); Chloride 107 mmol/L (98-107); Glucose 93 mg/dL (74-106); Potassium 4.1 mmol/L (3.5-5.1); Sodium 141 mmol/L (136-145)
[2021-06-01] MEDS: Lidocaine 5% Patch 2 PATCH TP (09:26)
[2021-06-01] MEDS: Protein Nutritional Supplement 16 GM 1 OUNCE PACKET PO (09:26)
[2021-06-01] MEDS: cefTRIAXone 2 GM/50 ML BAG IVPB (09:26)
[2021-06-01] MEDS: Polyethylene Glycol 3350 17 GM PACKET PO (09:26)
[2021-06-01] MEDS: Apixaban 5 MG TAB PO (09:27)
[2021-06-01] MEDS: Senna TAB 2 TAB PO (09:27)
[2021-06-01] MEDS: Docusate Sodium 100 MG CAP PO ×2 (09:27→13:57)
[2021-06-01] MEDS: Spironolactone 25 MG TAB PO (09:27)
[2021-06-01] MEDS: Pantoprazole 40 MG TABCR PO (09:27)
[2021-06-01] MEDS: Ascorbic Acid 500 MG TAB PO (09:27)
[2021-06-01] MEDS: Gabapentin 300 MG CAP PO ×2 (09:27→13:57)
[2021-06-01] MEDS: Cetirizine 10 MG TAB PO (09:28)
[2021-06-01] MEDS: DULoxetine 30 MG CAP 90 MG PO (09:28)
[2021-06-01] MEDS: busPIRone 5 MG TAB 20 MG PO (09:28)
[2021-06-01] MEDS: Baclofen 10 MG TAB PO ×2 (09:28→13:57)
[2021-06-01 09:29] VITALS: BP 94/56; PULSE 61; RESP 18; TEMP 36.4; O2SAT 98
[2021-06-01] MEDS: Magnesium Chloride 64 MG TABCR PO (09:29)
[2021-06-01] MEDS: Multivitamin w/Minerals TAB 1 TAB PO (09:29)
[2021-06-01] MEDS: Fluticasone NASAL SPRAY 16 GM BTL NS (11:22)
[2021-06-01 11:56] VITALS: BP 95/60; PULSE 65; RESP 18; TEMP 36.4; O2SAT 97
--- NOTE | 2021-06-01 14:48 | DSE_ITS ---
Date of service: 06/01/21 Time of Service: 14:49 DS: Diagnosis Discharge Diagnosis (1) Sepsis: Start date: 06/01/21 Start time: 14:49 Status: Resolved Asessment and Plan: Due to urosepsis, after catheter exchange found to be growing proteus mirabilis in both blood and urine only one set of blood cultures. Both sensitive to ceftriaxone. He will require 14 days due to being complicated. Catheter was exchanged on the using sterile technique by this provider, see the note. He is now feeling better he has been afebrile and cleared blood cultures. PICC was exchanged and he cleared his blood cultures therefore he can be discharged back into swing bed status. (2) UTI (urinary tract infection): Start date: 06/01/21 Start time: 14:54 Status: Resolved Asessment and Plan: as above (3) Indwelling catheter replaced: Start date: 06/01/21 Start time: 14:54 Status: Acute Asessment and Plan: exchanged on the , per Dr. Molina should exchanged monthly. as above (4) Low magnesium level: Start date: 06/01/21 Start time: 14:55 Status: Resolved Asessment and Plan: repleted with po and IV, (5) Acute osteomyelitis of sacrum: Start date: 06/01/21 Start time: 14:55 Status: Acute Asessment and Plan: He is finishing a 6 week course of vanco and cipro. He will likely require subusequent dosing until he either gets flapped or hyperbaric chamber. He does have appt with [facility] Jun 18. for spine and we are trying to arrange plastics for the same day Unable to visualize wound as wound vac in place, He also will be on cipro for 6 weeks for osteo. Dilaudid for drsg changes IV or PO per patient discretion Working on weaning of dilaudid, spoke about upping fentalnyl patch on Thursday and titrating down diladid more to get Favio to a comfortable spot so he is no longer relying on dilaudid only for break through and with pills, he wants this, he understand his pain will never be a zero but we can get it to a tolerable level, his level for tolerance is a 4-5 (6) Major depressive disorder: Start date: 06/01/21 Start time: 14:56 Status: Chronic Asessment and Plan: Mood waxes and wanes however for the most part he has been in better spirits (7) Hx of caloric malnutrition: Start date: 06/01/21 Start time: 14:57 Status: Chronic Asessment and Plan: continue marinol with ritilan this has improved his appetite and have nutrition continue to follow him (8) Quadriplegia: Start date: 06/01/21 Start time: 14:58 Status: Chronic Asessment and Plan: cont OT/. P.T. to work with patient He is able to move his middle finger on his right hand slightly which is new for him He has appt with [facility] on June 18 for paralysis center to determine if surgery is an option (9) Neurogenic bladder: Start date: 06/01/21 Start time: 15:01 Status: Chronic Asessment and Plan: as above requiring suprapubic (10) S/P colostomy: Start date: 06/01/21 Start time: 15:01 Status: Chronic Asessment and Plan: with semiformed stool, pink stoma (11) DVT (deep venous thrombosis): Start date: 06/01/21 Start time: 15:01 Status: Chronic Asessment and Plan: continue apixaban, will repeat imaging to see if this is still formed as he has been on this medication for well over 6 months now above discussed with Dr. Olson Discharge Plan Disposition Patient Disposition: [facility] SWING BED LEVEL 1 Condition: Improving Discharge Details Reason For Visit: Urosepsis Admit Date/Time: 05/26/21 13:50 Admit Provider: Lamar Murillo Attending Provider: Lamar Murillo [facility] Course: 56 y.o male quadrapeligic s/p colostomy, suprapubic, who on 05/25 became tachicardic with HR in 130's not sure if this was reported to overnight provider along with fever of 38.0 again not sure if reported to provider. That morning I went to see Favio right away and he appeared toxic. He was diaphoretic. Appeared toxic though he states that he felt fine and became obtunded, vanco was already infusing for osteo, cipro and ceftrixone 2 gm initiated fentynal patch removed. Both blood and urine cx revealed proteus mirabilis sensitive to ceftriaxone. A second set of blood cultures were ordered and patient cleared blood cultures on 05/28. He has been feeling great. Fever defervesced 24 hours initation of antibiotics. He has been getting out of bed to chair with christa and feeding self. His fentynal patch has been replaced and dilaudid decreased with a goal to get him down to PO only over the next couple weeks. We can increase fentynal patch with a goal of pain level of 4-5 as this is tolerable for him and po dilaudid only as needed for breakthrough pain. He did c/o GUEVARA yesterday which is new for him as he has never c/o guevara, CT ordered revealing sinusitis. Started on zyrtec and flonase. There was also concern about the surgical site and therefore would consult placed so he can be seen for this. Otherwise he is doing well feeling better and therefore transitioning to SB level 1. Home Meds and New Rx's Prescriptions: No Action acetaminophen 500 mg capsule 1,000 mg PO Q8H RF: 0 albuterol sulfate 90 mcg/actuation aerosol powdr breath activated 2 inh inhalation Q4H PRNRF: 0 apixaban 5 mg tablet 5 mg PO BID RF: 0 buspirone 10 mg tablet 20 mg PO BID RF: 0 docusate sodium [Colace] 100 mg capsule 100 mg PO BID RF: 0 bisacodyl [Dulcolax (bisacodyl)] 10 mg suppository 10 mg MO DAILY PRNRF: 0 Lactobacillus acidoph-L.bulgar [Floranex] 1 million cell tablet 1 tab PO TID RF: 0 polyethylene glycol 3350 [Miralax] 17 gram/dose powder 17 g PO DAILY RF: 0 senna 8.6 mg capsule 17.2 mg PO BID RF: 0 spironolactone [Aldactone] 25 mg Tablet 25 mg PO DAILY RF: 0 ascorbic acid (vitamin C) 500 mg Tablet 500 mg PO BID RF: 0 amlodipine 10 mg Tablet 10 mg PO DAILY RF: 0 pantoprazole 40 mg Tablet,Delayed Release (Dr/Ec) 40 mg PO DAILY RF: 0 diphenhydramine HCl 25 mg Capsule 25 mg PO QHS RF: 0 lidocaine 5 % Adhesive Patch,Medicated 2 patch TOPICAL DAILY RF: 0 diazepam 5 mg Tablet 2.5 mg PO QHS RF: 0 Theragran-M Tablet 1 tab PO DAILY RF: 0 tapentadol 100 mg Tablet 100 mg PO Q6H PRNRF: 0 duloxetine 30 mg Capsule, Delayed Rel Sprinkle 90 mg PO DAILY RF: 0 baclofen 5 mg Tablet 5 mg PO Q6H PRNRF: 0 ondansetron HCl [Zofran] 4 mg Tablet 4 mg PO Q8H PRNRF: 0 Discharge Instructions Activity:: Activity as Tolerated Equipment/Supplies:: No Equipment Needed Diet:: Normal Diet Discharge Orders Discharge Orders: Discharge Order (Routine); Ordered 06/01/21 Ordered By: Eliane Tolliver Discharge Data Discharge Date/Time-TO BE ENTERED AT DEPARTURE: 06/01/21 14:48 DS: Summary Time Spent with Patient providing and/or coordinating discharge services: Less than 30 minutes Status at Discharge Functional status at discharge: bed bound Overall status at discharge: patient is back to baseline Mental Status: mental status grossly normal Speech and Movement: other (quadrapeligic) Mood: congruent mood Affect: normal affect Exam Const General: cooperative, comfortable, no acute distress, frail appearing and ill appearing chronically Nutritional Appearance: thin Orientation: alert, awake and oriented x3 Eyes Sclera: sclerae normal Resp Effort & Inspection: normal respiratory effort Cardio Rate: regular rate Rhythm: regular rhythm GI Inspection: normal to inspection (colostomy functioning) Palpation: soft General: other (suprapubic cath draining well.) Skin Lesions: other (wounds not seen today) Neuro General: patient alert, patient awake and patient oriented x3 Extrem General: abnormal to inspection (flacid lower, contracted hands. ) Psych Mental Status: mental status grossly normal Speech and Movement: other (quadrapeligic) Mood: congruent mood Affect: normal affect DS: Data Vitals/I&O Vitals and I&O: Vital Signs Temperature 36.4 C L 06/01/21 11:56 Temperature Source Temporal Artery Scan 06/01/21 11:56 Pulse 65 06/01/21 11:56 Pulse Rhythm Regular 06/01/21 00:25 Respiratory Rate 18 06/01/21 11:56 Respiratory Effort Non-Labored 06/01/21 00:25 Respiratory Depth Normal 06/01/21 00:25 Respiratory Pattern Normal 06/01/21 00:25 Blood Pressure 95/60 L 06/01/21 11:56 Pulse Oximetry 97 06/01/21 11:56 Oxygen Delivery Method Room Air 06/01/21 11:56 Oxygen Flow Rate 0 06/01/21 11:56 Pain Level 5 06/01/21 11:56 Comment 05/31/21 04:00 Intake & Output 05/31/21 06/01/21 06/01/21 23:59 11:59 23:59 Intake Total 1140 / 2170 800 / 1300 500 / 1300 Output Total 4050 / 5950 2250 / 2675 425 / 2675 Balance -2910 / -3780 -1450 / -1375 75 / -1375 Intake: IV 660 / 1210 200 / 200 Oral 480 / 960 600 / 1100 500 / 1100 Output: Urine 3650 / 5350 1800 / 2225 425 / 2225 Stool 400 / 600 450 / 450 Other: Urine Color Pale Yellow Yellow Urine Appearance Clear Clear Clear Stool Size Large Stool Characteristics Soft Brown Data Completed and Pending Completed studies during hospitalization [Text1]: Exam(s) XR PORTABLE CHEST AP EXAM: XR PORTABLE CHEST AP CLINICAL HISTORY: fever TECHNIQUE: 2D digital imaging was performed. COMPARISON: CR,XR XR ABDOMEN FLAT PLATE from 03/23/2021 FINDINGS: MEDIASTINUM: Normal. HEART: Normal. PULMONARY VASCULATURE: Normal. LUNGS: Clear. PLEURAL SPACE: No pleural effusion or pneumothorax. BONE:Within normal limits for the patient's age. Incompletely imaged lower cervical and upper thoracic spine surgery. OTHER FINDINGS:The tip of the left PICC line is in good position at the junction of the superior vena cava and right atrium. IMPRESSION: No acute pulmonary findings. : 1965Age: 56 Exam(s) PROCEDURE INFORMATION: Exam: CT Head Without Contrast Exam date and time: 05/31/2021 4:38 PM Age: 56 years old Clinical indication: Pain; Patient HX: New onset headaches on blood thinners TECHNIQUE: Imaging protocol: Computed tomography of the head without contrast. Total images: 1078 COMPARISON: CT HEAD CERVICAL SPINE WO 10/26/2020 8:45 PM FINDINGS: Brain: No extra-axial fluid collections. No evidence of acute intracranial hemorrhage. Tucker-white differentiation is well maintained. No CT evidence of large territory acute or subacute intracranial ischemia/infarct. No intracranial mass lesions. No midline shift or herniation. Cerebral ventricles: Ventricles normal. Paranasal sinuses: Mucosal thickening in the left fronto ethmoid distribution consistent with sinus inflammatory disease. No fluid levels. Mastoid air cells: Visualized mastoid air cells are clear. Orbital cavity: Visualized orbital contents demonstrate no evidence of acute abnormality. Vasculature: Moderate calcific atherosclerosis. No asymmetric vascular hyperdensities suggestive of thrombosis are identified. Bones/joints: The calvarium and visualized facial bones are intact. Soft tissues: The scalp and visualized soft tissues demonstrate no acute abnormality. 16 x 5 mm scalp lipoma in the left occipital scalp. Other findings: The IACs are grossly normal. The sella is grossly normal. IMPRESSION: 1. No acute intracranial process. No intracranial hemorrhage or mass effect. 2. Mild left fronto ethmoid sinusitis. Labs on day of discharge: Labs from last 24 hours 06/01/21 06/01/21 07:05 07:05 WBC 6.13 RBC 3.69 L Hgb 10.3 L Hct 32.2 L MCV 87.3 MCH 27.9 MCHC 32.0 RDW 15.9 H Plt Count 227 MPV 9.8 Immature Gran % 2.0 Neutrophils % 56.3 Lymphocytes % 26.6 Monocytes % 8.6 Eosinophils % 6.0 Basophils % 0.5 Nucleated RBC % 0 Absolute Neutrophils 3.45 Absolute Lymphocytes 1.63 Absolute Monocytes 0.53 Absolute Eosinophils 0.37 Absolute Basophils 0.03 Sodium 141 Potassium 4.1 Chloride 107 Carbon Dioxide 25.3 Anion Gap 8.7 BUN 23 H Creatinine 0.6 L Estimated GFR/1.73 m2 >= 60.00 Glucose 93 Calcium 9.9 Preliminary micro results at discharge 05/28/21 08:25 Blood Culture - Preliminary Blood NO GROWTH 96 HOURS 05/28/21 08:30 Blood Culture - Preliminary Blood NO GROWTH 96 HOURS [facility] Medical History Acute embolism and thrombosis of deep vein of right lower extremity Anxiety disorder Aspiration into airway C. difficile colitis Constipation Constipation due to neurogenic bowel Decubitus skin ulcer Decubitus ulcer of buttock, stage 4 Dislocation of C6/C7 cervical vertebrae DNR (do not resuscitate) DVT (deep venous thrombosis) DVT prophylaxis Encounter for wound care Fall down embankment Fusion of spine H/O deep venous thrombosis Hypokalemia Hypotension Ileus Iron deficiency anemia Large bowel obstruction Major depressive disorder Malnutrition following gastrointestinal surgery Neurogenic bladder Neurogenic bowel Open wound of abdominal wall Palliative care patient Physician orders for life-sustaining treatment (POLST) form indicates patient wish for [id number] status Quadriplegia Right arm pain Visit for wound check Surgical History S/P colostomy Social History Smoking/Tobacco Use Status: Never Smoking risk assessment performed?: Yes Alcohol Intake: current Alcohol Intake frequency: a few times a week Drug use: Occasionally Substance use type: marijuana Do you feel safe at home: Yes Do you feel safe in your relationship?: Yes
--- NOTE | 2021-06-03 07:51 | OT.INDS ---
Date of service: 06/03/21 Time of Service: 07:51 Occupational Therapy Notes Occupational Therapy Inpatient Discharge Summary Date: 06/03/21 Dates of Service: 05/27/21- 06/03/21 Referring Doctor: Eliane Tolliver NP OT Orders: Non-Urgent Precautions: Full, Fall, Standard PATIENT PROFILE/ADMITTING DIAGNOSIS: Pt is a 56 year old male who presented to the ED from SNF for the following dx of major depressive disorder, quaridplegia, UTI, decubitus skin ulcers, constipation, and neurogenic bladder. He is re-evaluated at [facility] session under swing bed level of care. Past Medical History: Medical History (Updated 05/26/21 @ 16:35 by Eliane Tolliver NP) Acute embolism and thrombosis of deep vein of right lower extremity Anxiety disorder Aspiration into airway C. difficile colitis Constipation Constipation due to neurogenic bowel Decubitus skin ulcer Decubitus ulcer of buttock, stage 4 Dislocation of C6/C7 cervical vertebrae DNR (do not resuscitate) DVT (deep venous thrombosis) DVT prophylaxis Encounter for wound care Fall down embankment Fusion of spine H/O deep venous thrombosis Hypokalemia Hypotension Ileus Iron deficiency anemia Large bowel obstruction Major depressive disorder Malnutrition following gastrointestinal surgery Neurogenic bladder Neurogenic bowel Open wound of abdominal wall Palliative care patient Physician orders for life-sustaining treatment (POLST) form indicates patient wish for av-jqk-[id number] status Quadriplegia Right arm pain Visit for wound check Surgical History (Updated 05/26/21 @ 16:35 by Eliane Tolliver NP) S/P colostomy Social History/Home Situation: Pt previously residing at SNF where his DME needs are met. He is functionally requiring what he reports as Max (A) for everything. He can perform his eating routines although notes that its a mess for him and he gets everything all over him. He would like to have better function of his (B) UE. His hands were in a contracted position which was bothersome to him, this has improved since being admitted. 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 Pt was able to grasp his fork and bring his food to mouth (I) but requires (A) with stabbing food and with directional awareness. He requires (A) With grasp and release as well as directional movement. Eating requires modified utensils. Bathing- sitting in bed with (I) with washing face at his chin to nose level and set up is max (A) at this time. BALANCE: Static sitting Good Dynamic Sitting Good SPECIAL TESTS: Daily Activity Limitations Standardized Measure [facility] AM -PAC ?6 clicks? Daily Activity Inpatient Short Form: Raw score: 7 Standardized score: 20.13 CMS score: 92.44% INFORMED CONSENT/EDUCATION: Pt instructed in purpose of OT Consult and plan of care. ASSESSMENT: Patient is a 56-year-old male referred to occupational therapy services with diagnosis of major depressive disorder, quaridplegia, UTI, decubitus skin ulcer, constipation, neurogenic bladder who recently under went a colostomy, aspiration of airway and is currently in acute level of care due to a UTI. Patient presents with clinical signs and symptoms consistent with dx, as demonstrated by the following impairment level findings/functional limitations: Pt requires max (A) for most ADL/IADL routines, he has contracted position of his digits and decreased functional activity tolerance due to fatigue. Decreased sensation in (B) UE and inability to perform his functional mobility (I) without (A). He was discharged from acute level of care and is currently being seen again under [facility] level of care at this time due to a decline in medical status. AMPAC score 7 Patient is assessed as a Moderate 74946 complexity based on the following: History: see above Examination: see functional limitations as noted above Presentation: evolving Decision Making: AMPAC score 7, CMS 92.44% GOALS 1. Grooming- pt will be mod (I) with brushing his teeth with mod vc throughout 2. Dressing- Pt will be min (A) with don and doffing shirt 3. Bathing- pt will be able to (I) wash his face and (B) UE 4. Pt will hold his fork and be (I) food to mouth for 1-2 meals per day with progression based on functional activity tolerance PLAN OF CARE/TREATMENT PLAN: 1x/day, 5 days/ week x 1week Initiate Occupational Therapy Services for bathing, dressing, grooming, toileting, eating, transfer training. DISCHARGE RECOMMENDATIONS Return to SNF vs. Home with 24 hour care givers. TREATMENT TIME/MINUTES/CODES N/A Michelle Pearce OTR/L [facility]
== END 2021-06-01 14:48 | disposition swing bed (61) | DRG 698 ==
PROVIDERS: Nurse Practitioner Acute Care; Nurse Practitioner Family; Admitting Provider Internal Medicine; PCP Nurse Practitioner Family; Visit Provider Internal Medicine
DX: T83.510A Infection and inflammatory reaction due to cystostomy catheter, initial encounter; L89.324 Pressure ulcer of left buttock, stage 4; L89.314 Pressure ulcer of right buttock, stage 4; A41.89 Other specified sepsis; G82.50 Quadriplegia, unspecified; N39.0 Urinary tract infection, site not specified; M46.28 Osteomyelitis of vertebra, sacral and sacrococcygeal region; F32.1 Major depressive disorder, single episode, moderate; G95.89 Other specified diseases of spinal cord; I82.411 Acute embolism and thrombosis of right femoral vein; K59.2 Neurogenic bowel, not elsewhere classified; E46 Unspecified protein-calorie malnutrition; Z93.51 Cutaneous-vesicostomy status; E83.42 Hypomagnesemia; S14.159S Other incomplete lesion at unspecified level of cervical spinal cord, sequela; W17.89XS Other fall from one level to another, sequela; Z93.3 Colostomy status; F41.9 Anxiety disorder, unspecified; Z66 Do not resuscitate; D50.9 Iron deficiency anemia, unspecified
CPT/HCPCS: 51705; 36410; 36415; 80048; 80053; 87040; 97110; 97140; 97163; 97166; 97530; 97535; 70450; 80202; 83735; 84134; 85025; 86140; 99223; 99232; 99233; 99238; J0744; J3475; J3490

== ENCOUNTER 2021-06-01 14:45 | Inpatient (IN) | payer BC, SELFPAY ==
--- NOTE | 2021-06-01 15:37 | HPE_ITS ---
Date of service: 06/01/21 Time of Service: 15:37 Assessment and Plan Assessment and plan (1) Acute osteomyelitis of sacrum: Start date: 06/01/21 Start time: 15:39 Status: Chronic Assessment and plan: This is the last day of 6 weeks of his antibiotics He will likely require subusequent dosing until he either gets flapped or hyperbaric chamber. He does have appt with [facility] Jun 18. for spine and we are trying to arrange plastics for the same day Unable to visualize wound as wound vac in place, He also will be on cipro for 6 weeks for osteo. Dilaudid for drsg changes IV or PO per patient discretion Working on weaning of dilaudid, spoke about upping fentalnyl patch on Thursday and titrating down diladid more to get Favio to a comfortable spot so he is no longer relying on dilaudid only for break through and with pills, he wants this, he understand his pain will never be a zero but we can get it to a tolerable level, his level for tolerance is a 4-5 (2) Major depressive disorder: Start date: 06/01/21 Start time: 15:40 Status: Chronic Assessment and plan: Mood waxes and wanes however for the most part he has been in better spirits Qualifiers: Major depression recurrence: single episode Active/Remission status: currently active Major depression episode severity: moderate Qualified Code(s): F32.1 - Major depressive disorder, single episode, moderate (3) Neurogenic bladder: Start date: 06/01/21 Start time: 15:40 Status: Chronic Assessment and plan: on 05/26 suprapubic changed by myself due to urosepsis, see h/p Per Dr. Molina we will need monthly changes, I am more than happy to change them if Dr. Molina is unavailable. (4) Quadriplegia: Start date: 06/01/21 Start time: 15:42 Status: Chronic Assessment and plan: cont OT/. P.T. to work with patient He is able to move his middle finger on his right hand slightly which is new for him He has appt with [facility] on June 18 for paralysis center to determine if surgery is an option (5) Hx of caloric malnutrition: Start date: 06/01/21 Start time: 15:42 Status: Chronic Assessment and plan: continue marinol with ritilan this has improved his appetite and have nutrition continue to follow him (6) DVT (deep venous thrombosis): Start date: 06/01/21 Start time: 15:42 Status: Chronic Assessment and plan: He has been on over 6 months of therapy for his dvt, Will obtain bilateral u/s to see if DVT still present and try to get him off eliquis. as standard is usually 3-6 months however he may need longer will reach out to hematology on Thursday for discussion regarding is length of anticoagulation therapy Qualifiers: DVT location: lower extremity Affected thrombotic vein of extremity: femoral Chronicity: acute Laterality: right Qualified Code(s): I82.411 - Acute embolism and thrombosis of right femoral vein (7) Discharge planning issues: Start date: 06/01/21 Start time: 15:44 Status: Acute Assessment and plan: LTC facility would be most appropriate however he has been turned down by multiple facilities, citing too high acuity for them. Annette from continues to work on this, THANK YOU Annette. Above case discussed with Dr. Murillo History of Present Illness History of Present Illness Chief Complaint: Osteo, quadrapeligic Narrative: 56 y.o male quadrapeligic s/p colostomy, suprapubic, who on 05/25 became tachicardic with HR in 130's not sure if this was reported to overnight provider along with fever of 38.0 again not sure if reported to provider. That morning I went to see Favio right away and he appeared toxic. He was diaphoretic. Appeared toxic though he states that he felt fine and became obtunded, vanco was already infusing for osteo, cipro and ceftrixone 2 gm initiated fentynal patch removed. Both blood and urine cx revealed proteus mirabilis sensitive to ceftriaxone. A second set of blood cultures were ordered and patient cleared blood cultures on 05/28. He has been feeling great. Fever defervesced 24 hours initation of antibiotics. He has been getting out of bed to chair with christa and feeding self. His fentynal patch has been replaced and dilaudid decreased with a goal to get him down to PO only over the next couple weeks. We can increase fentynal patch with a goal of pain level of 4-5 as this is tolerable for him and po dilaudid only as needed for breakthrough pain. He did c/o GUEVARA yesterday which is new for him as he has never c/o guevara, CT ordered revealing sinusitis. Started on zyrtec and flonase. There was also concern about the surgical site and therefore would consult placed so he can be seen for this. Otherwise he is doing well feeling better and therefore transitioning to SB level 1. Review of Systems All systems reviewed & are unremarkable except as noted in HPI and below PFSH Medical History Acute embolism and thrombosis of deep vein of right lower extremity Anxiety disorder Aspiration into airway C. difficile colitis Constipation Constipation due to neurogenic bowel Decubitus skin ulcer Decubitus ulcer of buttock, stage 4 Dislocation of C6/C7 cervical vertebrae DNR (do not resuscitate) DVT (deep venous thrombosis) DVT prophylaxis Encounter for wound care Fall down embankment Fusion of spine H/O deep venous thrombosis Hypokalemia Hypotension Ileus Iron deficiency anemia Large bowel obstruction Major depressive disorder Malnutrition following gastrointestinal surgery Neurogenic bladder Neurogenic bowel Open wound of abdominal wall Palliative care patient Physician orders for life-sustaining treatment (POLST) form indicates patient wish for [id number] status Quadriplegia Right arm pain Visit for wound check Surgical History S/P colostomy Social History Smoking/Tobacco Use Status: Never Smoking risk assessment performed?: Yes Alcohol Intake: current Alcohol Intake frequency: a few times a week Drug use: Occasionally Substance use type: marijuana Do you feel safe at home: Yes Do you feel safe in your relationship?: Yes Meds Allergies and Home Medications Allergies Allergy/AdvReac Type Severity Reaction Status Date / Time No Known Allergies Allergy Unverified 11/26/18 03:46 Home Medications Medication Instructions Recorded Confirmed Type Lactobacillus acidoph-L.bulgaricus 1 tab PO TID tab 01/29/21 05/26/21 History 1 million cell tablet acetaminophen 500 mg capsule 1,000 mg PO Q8H cap 01/29/21 05/26/21 History albuterol sulfate 90 mcg/actuation 2 inh INHALATION Q4H PRN 01/29/21 05/26/21 History breath activated powder inhaler apixaban 5 mg tablet 5 mg PO BID 01/29/21 05/26/21 History bisacodyl 10 mg rectal suppository 10 mg LA DAILY PRN 01/29/21 05/26/21 History buspirone 10 mg tablet 20 mg PO BID tab 01/29/21 05/26/21 History docusate sodium 100 mg capsule 100 mg PO BID 01/29/21 05/26/21 History polyethylene glycol 3350 17 17 g PO DAILY 01/29/21 05/26/21 History gram/dose oral powder sennosides 8.6 mg capsule 17.2 mg PO BID 01/29/21 05/26/21 History baclofen 5 mg PO Q6H PRN 02/20/21 05/26/21 History ondansetron HCl [Zofran] 4 mg PO Q8H PRN 02/20/21 05/26/21 History amlodipine 10 mg PO DAILY 04/10/21 05/26/21 History ascorbic acid (vitamin C) 500 mg PO BID 04/10/21 05/26/21 History diazepam 2.5 mg PO QHS 04/10/21 05/26/21 History diphenhydramine HCl 25 mg PO QHS 04/10/21 05/26/21 History duloxetine 90 mg PO DAILY 04/10/21 05/26/21 History lidocaine 2 patch TOPICAL DAILY 04/10/21 05/26/21 History multivitamin,tx-minerals 1 tab PO DAILY 04/10/21 05/26/21 History [Theragran-M] pantoprazole 40 mg PO DAILY 04/10/21 05/26/21 History spironolactone [Aldactone] 25 mg PO DAILY 04/10/21 05/26/21 History tapentadol 100 mg PO Q6H PRN 04/10/21 05/26/21 History Exam Narrative Exam Narrative: General: cooperative, comfortable, no acute distress, frail appearing and ill appearing chronically Nutritional Appearance: thin Orientation: alert, awake and oriented x3 Eyes Sclera: sclerae normal Resp Effort & Inspection: normal respiratory effort Cardio Rate: regular rate Rhythm: regular rhythm GI Inspection: normal to inspection (colostomy functioning) Palpation: soft General: other (suprapubic cath draining well.) Skin Lesions: other (wounds not seen today) Neuro General: patient alert, patient awake and patient oriented x3 Extrem General: abnormal to inspection (flacid lower, contracted hands. ) Psych Mental Status: mental status grossly normal Speech and Movement: other (quadrapeligic) Mood: congruent mood Affect: normal affect
[2021-06-01 17:27] VITALS: BP 136/81; PULSE 74; RESP 18; TEMP 37.1; O2SAT 98
[2021-06-01] MEDS: Gabapentin 300 MG CAP 600 MG PO (17:34)
[2021-06-01] MEDS: HYDROmorphone 2 MG/ML VIAL IVP (17:35)
[2021-06-01] MEDS: VANCOMYCIN/WATER (PEG) 1.25 GM/250 ML BAG IV (17:36)
[2021-06-01 19:25] VITALS: BP 113/72; PULSE 74; RESP 14; TEMP 36.4; O2SAT 97
[2021-06-01] MEDS: Normal Saline Flush 10 ML SYR IVP ×2 (19:34→22:09)
[2021-06-01] MEDS: Protein Nutritional Supplement 16 GM 1 OUNCE PACKET PO (19:34)
[2021-06-01] MEDS: busPIRone 5 MG TAB 20 MG PO (19:36)
[2021-06-01] MEDS: Ascorbic Acid 500 MG TAB PO (19:36)
[2021-06-01] MEDS: Baclofen 10 MG TAB PO (19:36)
[2021-06-01] MEDS: Apixaban 5 MG TAB PO (19:36)
[2021-06-01] MEDS: Senna TAB 2 TAB PO (19:36)
[2021-06-01] MEDS: Docusate Sodium 100 MG CAP PO (19:37)
[2021-06-01] MEDS: HYDROmorphone 2 MG/ML VIAL 1.5 MG IVP (22:10)
[2021-06-01] MEDS: CIPROFLOXACIN 400 MG/200 ML BAG 200 MG IVPB (22:10)
[2021-06-01] MEDS: diphenhydrAMINE 25 MG CAP 50 MG PO (22:11)
[2021-06-01] MEDS: Melatonin 3 MG TAB 9 MG PO (22:11)
[2021-06-01] MEDS: Acetaminophen 500 MG TAB 1000 MG PO (22:11)
[2021-06-01] MEDS: Gabapentin 300 MG CAP 900 MG PO (22:13)
[2021-06-01] MEDS: diazePAM 5 MG TAB 2.5 MG PO (22:13)
[2021-06-01 23:35] VITALS: BP 94/59; PULSE 71; RESP 14; TEMP 36.1; O2SAT 97
[2021-06-02] MEDS: Methylphenidate 10 MG TAB PO ×2 (06:30→11:14)
[2021-06-02] MEDS: Dronabinol 2.5 MG CAP PO ×2 (06:30→11:14)
[2021-06-02] MEDS: Acetaminophen 500 MG TAB 1000 MG PO ×3 (06:30→21:07)
[2021-06-02 08:10] VITALS: BP 107/73; PULSE 70; RESP 18; TEMP 36.5; O2SAT 97
[2021-06-02] MEDS: Lidocaine 5% Patch 2 PATCH TP (09:55)
[2021-06-02] MEDS: Magnesium Chloride 64 MG TABCR PO (09:55)
[2021-06-02] MEDS: cefTRIAXone 2 GM/50 ML BAG IVPB (09:55)
[2021-06-02] MEDS: Polyethylene Glycol 3350 17 GM PACKET PO (09:55)
[2021-06-02] MEDS: Protein Nutritional Supplement 16 GM 1 OUNCE PACKET PO ×2 (09:55→20:55)
[2021-06-02] MEDS: Cetirizine 10 MG TAB PO (09:56)
[2021-06-02] MEDS: Multivitamin w/Minerals TAB 1 TAB PO (09:56)
[2021-06-02] MEDS: Pantoprazole 40 MG TABCR PO (09:56)
[2021-06-02] MEDS: Senna TAB 2 TAB PO ×2 (09:56→20:56)
[2021-06-02] MEDS: Baclofen 10 MG TAB PO ×3 (09:56→20:56)
[2021-06-02] MEDS: busPIRone 5 MG TAB 20 MG PO ×2 (09:56→20:55)
[2021-06-02] MEDS: Ascorbic Acid 500 MG TAB PO ×2 (09:56→20:56)
[2021-06-02] MEDS: DULoxetine 30 MG CAP 90 MG PO (09:56)
[2021-06-02] MEDS: Docusate Sodium 100 MG CAP PO ×3 (09:56→20:56)
[2021-06-02] MEDS: amLODIPine 10 MG TAB PO (09:57)
[2021-06-02] MEDS: Normal Saline Flush 10 ML SYR IVP ×2 (09:57→20:55)
[2021-06-02] MEDS: Spironolactone 25 MG TAB PO (09:57)
[2021-06-02] MEDS: Apixaban 5 MG TAB PO ×2 (09:57→20:56)
[2021-06-02] MEDS: Fluticasone NASAL SPRAY 16 GM BTL NS (10:00)
[2021-06-02] MEDS: Gabapentin 300 MG CAP 600 MG PO ×3 (10:00→18:02)
[2021-06-02 15:53] VITALS: BP 136/79; PULSE 95; RESP 20; TEMP 37.4; O2SAT 97
--- NOTE | 2021-06-02 19:43 | WOUNDCONS_ITS ---
- If Service Date Differs Date of service: 06/02/21 Time of Service: 10:00 Wound Initial Evaluation Narrative: Asked to consult on Mr. Velasquez's abdominal wound by hospitalist service. Etiology; originally a midline incision from exploratory lap surgery on 03/31/21. Had sharla, incision in two spots. It appears wounds have worsened, skin erosion present, suspect d/t excess moisture. See photos below. 2nd photo has q- tip stick to assist in viewing clear stitch that is present in wound bed. No S/Sx of infection present. I am very familiar w/Mr. Velasquez as I have been following his Ischial wounds for many weeks. H&P, labs, provider notes reviewed @ length. Pt's nutrition is optimal @ this time. Recommend placement of a SCOOTER dressing to help balance out moisture environment of wound and promote healing. - Wound midline abdominal distal Wound Type: Incision Wound General Appearance: Draining, Bleeding, Unapproximated Wound Bed Greatest Portion: Red (Granulation), Pale [place] Wound Surrounding Tissue Appearance: Normal/Healthy Wound Length: 5 cm Wound Width: 3 cm Wound Depth: 0.8 cm Wound Drainage Amount: Moderate proximal midline abdominal Wound Type: Incision Wound Bed Greatest Portion: Pale [place] Wound Length: 1.8 cm (8) Wound Width: 0.9 cm Wound Depth: 0.2 cm Wound Drainage Amount: Minimal - Recomendation Recomendation:: Apply SCOOTER dressing today. Leave in place for 7 days. change ostomy appliance @ same time, leave in place for 7 days if able. Physcian/Nurse Practioner Notified: Yes (Oscar Tolliver NP) Referrals: Dietary (already being followed)
[2021-06-02] MEDS: HYDROmorphone 2 MG/ML VIAL 1.5 MG IVP (21:06)
[2021-06-02] MEDS: Gabapentin 300 MG CAP 900 MG PO (21:07)
[2021-06-02] MEDS: diphenhydrAMINE 25 MG CAP 50 MG PO (21:07)
[2021-06-02] MEDS: diazePAM 5 MG TAB 2.5 MG PO (21:07)
[2021-06-02] MEDS: Melatonin 3 MG TAB 9 MG PO (21:07)
[2021-06-02 23:08] VITALS: BP 105/65; PULSE 85; RESP 16; TEMP 37.2; O2SAT 95
--- NOTE | 2021-06-03 | DI.US_ITS ---
Exam(s) US LOWER EXTREMITY VENOUS RT EXAM: US LOWER EXTREMITY VENOUS RT CLINICAL HISTORY: r/o previous RIGHT DVT. patient on eliquisgreaterthan6 m TECHNIQUE: Grayscale, color, and doppler imaging of the deep venous system of the lower extremity w as performed. COMPARISON: US US LOWER EXTREMITY VENOUS RT from 04/03/2021 FINDINGS: Compared to the prior study the common femoral vein and proximal femoral vein in the right thigh are presently patent, as is the profundal femoris vein. There is still intraluminal thrombus within the mid and distal femoral vein in the thigh. The ipsila teral popliteal vein and posterior tibial veins in the calf are patent. The ipsilateral greater saphenous vein and saphenofemoral junction are patent IMPRESSION: 1. Compared to prior study of 04/03/2021 there has been some of the common femoral vein and proximal femoral vein in the thigh. There is still intraluminal thrombus evident within the mid and distal f emoral vein. The greater saphenous vein is patent as is the saphenofemoral junction. Veins at and below the popliteal vein are patent. DATA REPOSITORY:
[2021-06-03] MEDS: Acetaminophen 500 MG TAB 1000 MG PO ×3 (06:04→21:37)
[2021-06-03] MEDS: Methylphenidate 10 MG TAB PO ×2 (06:04→11:13)
[2021-06-03] MEDS: Dronabinol 2.5 MG CAP PO ×2 (06:04→11:13)
[2021-06-03 08:01] VITALS: BP 107/65; PULSE 65; RESP 14; TEMP 36.4; O2SAT 96
--- NOTE | 2021-06-03 08:14 | W.PALPGNOTE ---
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 He is going to work with care management and hopes to resolve this. I have not seen him he is depressed as he was today. I asked if I could come back and see him later this week. He was appreciative of this and did ask me to return I did review Magi's notes. I recommend that she try Lyrica in place of gabapentin to see if it is helpful. I also discussed this with her. Per staff Favio has been told that going to live with the mother of his child is not an option. He continues to feel this is an option when he speaks to me. Subjective Subjective Patient reports: still having pain Interval history since last seen: aFvio continues to have difficulty with pain. Recently just increased his fentanyl patch to try to decrease his need for intermittent narcotic dosing. He has not yet gotten the patch so he does not know how it works. He had a very disturbing phone call from today. He is very upset. There is concern regarding losing his land versus getting Medicaid insurance. He is not willing to make that trade at this point. He talks about going home to live with the mother of his child. He also talks about the different difficulties he has with visitors. Exam Narrative Exam Narrative: He is really down today. At times he had tears in his eyes. He was cursing which is very unusual for him during our conversations. Per medical record his wounds are healing. Antibiotics Objective Last Vital Signs Temp 97.5 F L 06/03/21 08:01 Pulse 65 06/03/21 08:01 Resp 14 06/03/21 08:01 BP 107/65 06/03/21 08:01 Pulse Ox 96 06/03/21 08:01
[2021-06-03] MEDS: Lidocaine 5% Patch 2 PATCH TP (08:48)
[2021-06-03] MEDS: Protein Nutritional Supplement 16 GM 1 OUNCE PACKET PO ×2 (08:48→21:39)
[2021-06-03] MEDS: Polyethylene Glycol 3350 17 GM PACKET PO (08:48)
[2021-06-03] MEDS: DULoxetine 30 MG CAP 90 MG PO (08:49)
[2021-06-03] MEDS: Multivitamin w/Minerals TAB 1 TAB PO (08:49)
[2021-06-03] MEDS: Apixaban 5 MG TAB PO ×2 (08:49→21:38)
[2021-06-03] MEDS: Magnesium Chloride 64 MG TABCR PO (08:50)
[2021-06-03] MEDS: amLODIPine 10 MG TAB PO (08:50)
[2021-06-03] MEDS: busPIRone 5 MG TAB 20 MG PO ×2 (08:50→21:37)
[2021-06-03] MEDS: Pantoprazole 40 MG TABCR PO (08:51)
[2021-06-03] MEDS: Cetirizine 10 MG TAB PO (08:51)
[2021-06-03] MEDS: Docusate Sodium 100 MG CAP PO ×3 (08:51→21:38)
[2021-06-03] MEDS: Ascorbic Acid 500 MG TAB PO ×2 (08:51→21:38)
[2021-06-03] MEDS: Senna TAB 2 TAB PO ×2 (08:51→21:37)
[2021-06-03] MEDS: Baclofen 10 MG TAB PO (08:51)
[2021-06-03] MEDS: Spironolactone 25 MG TAB PO (08:51)
[2021-06-03] MEDS: Normal Saline Flush 10 ML SYR IVP ×2 (08:52→21:38)
[2021-06-03] MEDS: Gabapentin 300 MG CAP 600 MG PO ×3 (09:26→17:10)
[2021-06-03] MEDS: cefTRIAXone 2 GM/50 ML BAG IVPB (09:31)
--- NOTE | 2021-06-03 09:40 | OTIE_ITS ---
Occupational Therapy Notes Inpatient Occupational Therapy Evaluation Date: 06/03/21 Referring Doctor: Eliane Tolliver NP OT Orders: Non-Urgent Precautions: Full, Fall, Standard PATIENT PROFILE/ADMITTING DIAGNOSIS: Pt is a 56 year old male who presented to the ED from SNF for the following dx of major depressive disorder, quaridplegia, UTI, decubitus skin ulcers, constipation, and neurogenic bladder. He is re- evaluated at todays session under [facility] B1 level of care. Past Medical History: Medical History (Updated 05/26/21 @ 16:35 by Eliane Tolliver NP) Acute embolism and thrombosis of deep vein of right lower extremity Anxiety disorder Aspiration into airway C. difficile colitis Constipation Constipation due to neurogenic bowel Decubitus skin ulcer Decubitus ulcer of buttock, stage 4 Dislocation of C6/C7 cervical vertebrae DNR (do not resuscitate) DVT (deep venous thrombosis) DVT prophylaxis Encounter for wound care Fall down embankment Fusion of spine H/O deep venous thrombosis Hypokalemia Hypotension Ileus Iron deficiency anemia Large bowel obstruction Major depressive disorder Malnutrition following gastrointestinal surgery Neurogenic bladder Neurogenic bowel Open wound of abdominal wall Palliative care patient Physician orders for life-sustaining treatment (POLST) form indicates patient wish for [id number] status Quadriplegia Right arm pain Visit for wound check Surgical History (Updated 05/26/21 @ 16:35 by Eliane Tolliver NP) S/P colostomy Social History/Home Situation: Pt previously residing at SNF where his DME needs are met. He is functionally requiring what he reports as Max (A) for everything. He can perform his eating routines although notes that its a mess for him and he gets everything all over him. He would like to have better function of his (B) UE. His hands were in a contracted position which was bothersome to him, this has improved since being admitted. Equipment owned/DME: DME needs met by SNF previously SUBJECTIVE: Pt was lying in bed when OT arrived, he states that he fed himself this morning with nursing and is happy with his increased (I) in his eating routines. He notes that his arms are feeling ok and that he is happy that he was able to perform this with min (A) for positioning of his food. 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 OT then placed pts elbows supported on bed and performed tone reduction techniques. Which pt tolerated well without increased pain. BALANCE: Static sitting Good Dynamic Sitting Good SPECIAL TESTS: Daily Activity Limitations Standardized Measure [facility] AM -PAC ?6 clicks? Daily Activity Inpatient Short Form: Raw score: 7 Standardized score: 20.13 CMS score: 92.44% INFORMED CONSENT/EDUCATION: Pt instructed in purpose of OT Consult and plan of care. ASSESSMENT: Patient is a 56-year-old male referred to occupational therapy services with diagnosis of major depressive disorder, quaridplegia, UTI, decubitus skin ulcer, constipation, neurogenic bladder who recently under went a colostomy, aspiration of airway and is currently in acute level of care due to a UTI. Patient presents with clinical signs and symptoms consistent with dx, as demonstrated by the following impairment level findings/functional limitations: Pt requires max (A) for most ADL/IADL routines, he has contracted position of his digits and decreased functional activity tolerance due to fatigue. Decreased sensation in (B) UE and inability to perform his functional mobility (I) without (A). He was discharged from acute level of care and is currently being seen again under Swing bed 1 level of care at this time. AMPAC score 7 Patient is assessed as a Moderate 75595 complexity based on the following: History: see above Examination: see functional limitations as noted above Presentation: evolving Decision Making: AMPAC score 7, CMS 92.44% GOALS Goals x1 week 1. Grooming- pt will be mod (I) with brushing his teeth with mod vc throughout 2. Dressing- Pt will be min (A) with don and doffing shirt 3. Bathing- pt will be able to (I) wash his face and (B) UE 4. Pt will hold his fork and be (I) food to mouth for 1-2 meals per day with progression based on functional activity tolerance PLAN OF CARE/TREATMENT PLAN: 1x/day, 5 days/ week x 1week Initiate Occupational Therapy Services for bathing, dressing, grooming, toileting, eating, transfer training. DISCHARGE RECOMMENDATIONS Return to SNF vs. Home with 24 hour care givers. TREATMENT TIME/MINUTES/CODES [id number], [id number], 15 minutes (09:10) Michelle Pearce OTR/L [facility]
[2021-06-03] MEDS: Fluticasone NASAL SPRAY 16 GM BTL NS (09:44)
--- NOTE | 2021-06-03 09:56 | W.PM.PROGNOT ---
Date of Service Date of service: 06/03/21 Time of Service: 09:56 Subjective Subjective Interval history since last seen: Favio states pain is not at tolerable level. Will increase fentanyl patch. Decrease dilaudid IV to 1 mg I would further decrease next week to 0.5 IV next week if the fentanyl patch is working and then the week after maybe increase PO and d/c IV all together Keep Po for break through only. He continues to have visible spasms and stated that he woke up with his legs off the bed so he likely had spasms during the night causing his legs to fall off. Will schedule valium for spasms. Baclofen titrated down and prn Objective Last Vital Signs Temp 36.4 C L 06/03/21 08:01 Pulse 65 06/03/21 08:01 Resp 14 06/03/21 08:01 BP 107/65 06/03/21 08:01 Pulse Ox 96 06/03/21 08:01
--- NOTE | 2021-06-03 11:49 | W.NUTRFU ---
Date of service: 06/03/21 Time of Service: 11:49 Nutritional Follow up NOTE: Favio continues to meet 100 % of nutrient and fluid needs by mouth by following regular meal plan, supplemented with ensure clear TID, liquid protein 1 oz BID, along with MVI, Vit C and 2.5 mg marinol BID. Weight has increased by 3 kg in last month, healing progressing well per wound consult. Most recent prealbumin indicates low level, and decline from last month. Decline in prealbumin most likely not related to nutritional status at this time as wound healing evident and optimal. Will continue with current meal plan and supplements and assess as needed. Time Spent in Nutritional Counseling and Treatment: 5
[2021-06-03] MEDS: diazePAM 5 MG TAB PO ×2 (13:05→21:38)
[2021-06-03 15:50] VITALS: BP 144/86; PULSE 85; RESP 18; TEMP 37.2; O2SAT 98
[2021-06-03] MEDS: HYDROmorphone 2 MG/ML VIAL 1 MG IVP (21:36)
[2021-06-03] MEDS: Melatonin 3 MG TAB 9 MG PO (21:37)
[2021-06-03] MEDS: diazePAM 5 MG TAB 2.5 MG PO (21:37)
[2021-06-03] MEDS: Gabapentin 300 MG CAP 900 MG PO (21:38)
[2021-06-03] MEDS: diphenhydrAMINE 25 MG CAP 50 MG PO (21:38)
[2021-06-03] MEDS: fentaNYL 75 MCG PATCH TD (21:39)
[2021-06-03 23:38] VITALS: BP 110/69; PULSE 77; RESP 16; TEMP 37.5; O2SAT 98
[2021-06-04] MEDS: Pantoprazole 40 MG TABCR PO (08:16)
[2021-06-04] MEDS: DULoxetine 30 MG CAP 90 MG PO (08:16)
[2021-06-04] MEDS: Multivitamin w/Minerals TAB 1 TAB PO (08:17)
[2021-06-04] MEDS: Cetirizine 10 MG TAB PO (08:17)
[2021-06-04] MEDS: Gabapentin 300 MG CAP 600 MG PO ×3 (08:17→17:59)
[2021-06-04] MEDS: Magnesium Chloride 64 MG TABCR PO (08:17)
[2021-06-04] MEDS: busPIRone 5 MG TAB 20 MG PO ×2 (08:17→21:33)
[2021-06-04] MEDS: Senna TAB 2 TAB PO ×2 (08:17→21:33)
[2021-06-04] MEDS: Spironolactone 25 MG TAB PO (08:17)
[2021-06-04] MEDS: Protein Nutritional Supplement 16 GM 1 OUNCE PACKET PO ×2 (08:18→21:31)
[2021-06-04] MEDS: Lidocaine 5% Patch 2 PATCH TP (08:18)
[2021-06-04] MEDS: diazePAM 5 MG TAB PO ×3 (08:18→21:33)
[2021-06-04] MEDS: Ascorbic Acid 500 MG TAB PO ×2 (08:18→21:34)
[2021-06-04] MEDS: amLODIPine 10 MG TAB PO (08:18)
[2021-06-04] MEDS: Docusate Sodium 100 MG CAP PO ×3 (08:18→21:33)
[2021-06-04] MEDS: Polyethylene Glycol 3350 17 GM PACKET PO (08:18)
[2021-06-04] MEDS: Apixaban 5 MG TAB PO ×2 (08:18→21:34)
[2021-06-04] MEDS: Normal Saline Flush 10 ML SYR IVP ×2 (08:19→21:34)
[2021-06-04] MEDS: Fluticasone NASAL SPRAY 16 GM BTL NS (08:26)
[2021-06-04 08:28] VITALS: BP 94/57; PULSE 60; RESP 18; TEMP 35.6; O2SAT 97
[2021-06-04] MEDS: cefTRIAXone 2 GM/50 ML BAG IVPB (09:41)
[2021-06-04] MEDS: Normal Saline 500 ML 30 ML IV (09:42)
--- NOTE | 2021-06-04 10:27 | OTTR_ITS ---
Date of service: 06/04/21 Time of Service: 09:35 Occupational Therapy Notes Occupational Therapy Inpatient Treatment Note Date: 06/04/21 PRECAUTIONS: Fall, standard, DNR/DNI SUBJECTIVE: Pt was lying in bed when OT arrived, he is agreeable to OT session noting that he was able to eat his breakfast this morning with increased (I). He states that his arms are working better and seem to be less painful. He notes increased restrictions on his (L) UE but states that this has always been bothersome to him. OBJECTIVE: PAIN:c/o (B) UE (L) > (R) but less than prior sessions. BATHING: Sitting in bed with max (A) set up/ clean up and placement of cloth onto hand Upper Body: (I) face to eye level with (R) UE, with mod vc and placement of (L) elbow into flexed position pt was able to wash the extensor side of his (L) UE with (R) hand, (R) UE was was from below elbow with (L) with notable discomfort and fatigue. Pt was able to (I) doff his eye glasses, he requires max (A) donning. OT educates pt on positioning to decrease energy expenditure and increase his energy conservation. He tolerates this well and OT will monitor pts response to todays session and progress accordingly. ASSESSMENT/PLAN: Pt is demonstrating increased functional use of his (B) UE with his ADL/IADL routines. He does require max (A) Set up and clean up but min-mod vc throughout and pt is able to perform this without extra (A) needed. OT will bring in dycem to next session to assist with tray placement and progress to pts tolerance. TREATMENT CODES/TIME: [id number], 25 minutes (09:35) Michelle Pearce, OTR/L [facility]
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
--- NOTE | 2021-06-04 10:37 | CM.SWINGPC ---
- If Service Date Differs Date of service: 06/04/21 Time of Service: 10:37 Swingbed Plan of Care Plan of care: SWING BED PROGRAM ACTIVITIES/DISCHARGE PLAN OF CARE ACTIVITIES PLAN Date:06/04/21 Identified Need: Intervention/Plan: Initials DISCHARGE PLAN Date:06/04/21 Identified Need: Intervention/Plan: Initials
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
[2021-06-04] MEDS: Dronabinol 2.5 MG CAP PO (12:08)
[2021-06-04] MEDS: Methylphenidate 10 MG TAB PO (12:09)
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
[2021-06-04] MEDS: Acetaminophen 500 MG TAB 1000 MG PO ×2 (13:46→21:34)
[2021-06-04] MEDS: HYDROmorphone 2 MG/ML VIAL 1 MG IVP ×2 (17:59→21:31)
--- NOTE | 2021-06-04 19:48 | WOUNDCONS ---
- If Service Date Differs Date of service: 06/04/21 Time of Service: 19:48 Wound Initial Evaluation Narrative: Mr. Velasquez seen for weekly re-evaluation and photos. Gives verbal consent. Wounds continue to improve. See photos below for comparison. Per Favio he is eating well. Per documentation he has been eating 75-100% of his meals. Protein on his meal trays was doubled 4 weeks ago, this is probably a factor in wound improvement. Pt's calorie and protein demand high d/t wounds. Request nutrition continues to follow Pt. Pt educated on importance of continuing to eat his meals to reach protein and calorie goal for wound healing. Arjo bed continues to be rounded on each shift. No issues to report. Alternating air setting is on @ this time. Pt report's he has started to get up to the recliner chair for short periods of time with help of christa lift and Pt in the last 2 weeks. Gel cushion is present in recliner chair to help with pressur redistribution. Pt educated that he should be repositioned Q1H while in chair. Encouraged to participate in his own care by ringing and reminding nursing of need for position changes while up in recliner Q1H.. RIGHT SIDE- TUNNELING/UNDERMINING NOTED at 12 & 6 o'clock, both measuring 2.1cm. 2 PIECES OF BLACK FOAM (total in wound) used in those areas. no white foam in right side used. Black foam used, cut in half to decrease depth since wound is getting smaller. Wound also window paned to protect periwound skin. LEFT SIDE- . Red non-granular tissue noted to wound base. No slough is seen in wound bed. Continue wound vac @ this time. Of note tunneling @ 12 o'clock AND 6 o'clock, 2 pieces of white foam placed in left wound.. Also wound edges seem to be making contact with black foam based on appearance, window pane technique with drape used to protect serge wound @ this time. Both wound vacs changed, c/d/i and running @ 125. Canisters changed @ this time as well. - Wound Left Ischial Tuberosity Wound Length: 2 cm (2cm tunnel @ 12 o'clock and 2 cm tunnel from 6-8) Wound Width: 1.2 cm Wound Depth: 1.3 cm Wound Drainage Amount: None Right Ischial Tuberosity Wound Length: 1.9 cm (2.1 cm tunnel @ 12 & 6 o'clock.) Wound Width: 1.5 cm Wound Depth: 1.5 cm Wound Drainage Amount: None - Recomendation Recomendation:: Recommend continuing wound vacs as ordered @ this time. Use white foam in tunneling areas as indicated per wound vac manufacture recommendations and practice standards. Physcian/Nurse Practioner Notified: No (Charge nurse notifed) Treatment Time - Time Total Time Spent with Patient: 60 mins
[2021-06-04 19:50] VITALS: BP 97/59; PULSE 83; RESP 18; TEMP 35.8; O2SAT 94
[2021-06-04] MEDS: Gabapentin 300 MG CAP 900 MG PO (21:32)
[2021-06-04] MEDS: diazePAM 5 MG TAB 2.5 MG PO (21:32)
[2021-06-04] MEDS: diphenhydrAMINE 25 MG CAP 50 MG PO (21:32)
[2021-06-04] MEDS: Melatonin 3 MG TAB 9 MG PO (21:33)
[2021-06-04 23:34] VITALS: BP 100/65; PULSE 71; RESP 18; TEMP 36.5; O2SAT 96
[2021-06-05] MEDS: Acetaminophen 500 MG TAB 1000 MG PO ×3 (06:39→21:23)
[2021-06-05] MEDS: Dronabinol 2.5 MG CAP PO ×2 (06:39→10:38)
[2021-06-05] MEDS: Pantoprazole 40 MG TABCR PO (06:39)
[2021-06-05] MEDS: Methylphenidate 10 MG TAB PO ×2 (06:39→10:38)
[2021-06-05] MEDS: Senna TAB 2 TAB PO ×2 (08:22→21:22)
[2021-06-05] MEDS: diazePAM 5 MG TAB PO ×3 (08:23→21:24)
[2021-06-05] MEDS: Magnesium Chloride 64 MG TABCR PO (08:23)
[2021-06-05] MEDS: Multivitamin w/Minerals TAB 1 TAB PO (08:23)
[2021-06-05] MEDS: Gabapentin 300 MG CAP 600 MG PO ×3 (08:23→18:13)
[2021-06-05] MEDS: Apixaban 5 MG TAB PO ×2 (08:24→21:23)
[2021-06-05] MEDS: Cetirizine 10 MG TAB PO (08:24)
[2021-06-05] MEDS: Ascorbic Acid 500 MG TAB PO ×2 (08:24→21:23)
[2021-06-05] MEDS: Spironolactone 25 MG TAB PO (08:24)
[2021-06-05] MEDS: amLODIPine 10 MG TAB PO (08:24)
[2021-06-05] MEDS: DULoxetine 30 MG CAP 90 MG PO (08:24)
[2021-06-05] MEDS: Docusate Sodium 100 MG CAP PO ×3 (08:24→21:23)
[2021-06-05] MEDS: Polyethylene Glycol 3350 17 GM PACKET PO (08:25)
[2021-06-05] MEDS: Protein Nutritional Supplement 16 GM 1 OUNCE PACKET PO ×2 (08:25→21:24)
[2021-06-05] MEDS: Normal Saline Flush 10 ML SYR IVP ×3 (08:25→21:23)
[2021-06-05] MEDS: Fluticasone NASAL SPRAY 16 GM BTL NS (08:25)
[2021-06-05] MEDS: Lidocaine 5% Patch 2 PATCH TP (08:26)
[2021-06-05 08:32] VITALS: BP 120/75; PULSE 65; RESP 18; TEMP 36.5; O2SAT 96
[2021-06-05] MEDS: Normal Saline 500 ML 30 ML IV (09:17)
[2021-06-05] MEDS: cefTRIAXone 2 GM/50 ML BAG IVPB (09:17)
--- NOTE | 2021-06-05 09:17 | OT.INTREAT ---
Date of service: 06/05/21 Time of Service: 09:00 Occupational Therapy Notes Occupational Therapy Inpatient Treatment Note Date: 06/05/21 PRECAUTIONS: Fall, standard, DNR/DNI SUBJECTIVE: Pt was sitting in his bed when OT arrived. He is agreeable to OT session noting that his (B) UE are moving better and that he can reach across his body now with his (L) UE. OBJECTIVE: PAIN:c/o pain in (B) UE (L) > (R) Manual Therapy [id number]: OT performed joint blocking techniques, manual mobilization to pts (B) UE with PROM to pts wrists, forearms, elbows and digits. Functionally pt performed this with increased (I) with his grasp and release but was sore in his (B) elbows due to dressing routine yesterday with OT. OT performed AA ROM with tone reduction techniques needed in his (L) UE which he tolerated well. Retrograde position performed to (B) elbows. OT provided max (A) to (L) shoulder for stability, pt did ok with this and OT feels that pt over compensates with his trap muscles for shoulder elevation/flexion. OT educates pt on performance of bathing with increased (I) utilizing (B) UE which he seems receptive too. OT will continue to monitor pts response to todays session and progress accordingly. OT recommends: 1. Hospital bed with alternating pressure for increased care of pts wounds and medically necessary due to pts decreased functional mobility and high risk of wounds. 2. A christa lift for transportation to and from bed to wheelchair etc.. to increase pts safety and pressure relief on his body during transfers. 3. His electric wheelchair transferred from [facility]- pt reports that he has an electric wheelchair at the facility and they are waiting for him to return home to get this delivered. 4. [place] cuff- this adaptive equipment will be utilized to maximize pts functional (I) in his ADL/IADL routines but supporting his decreased hand function and control 5. OT recommends that pt has HH OT/PT as well as a caregiver 24 hours/day given his high needs and inability to cook, clean and take care of his toileting routines. Pt will also need (A) with functional mobility and will be unable to perform this without (A). 6. Plate scoop- to increased pts functional (I) with his eating routine. 7. Caregiver training for ADLs and (A) with ADL routines 8. Ramp to get in and out of residence TREATMENT CODES/TIME: 20561, 17 minutes (09:00) Michelle Pearce OTR/[facility]
[2021-06-05] MEDS: busPIRone 5 MG TAB 20 MG PO ×2 (10:38→21:23)
[2021-06-05 11:44] VITALS: BP 120/71; PULSE 80; RESP 18; TEMP 36.5; O2SAT 93
--- NOTE | 2021-06-05 14:49 | PT.INTREAT ---
Date of service: 06/05/21 Time of Service: 11:35 PT Notes Visit Reasons: Osteomylitis,Quadrapleqic Inpatient Physical Therapy Treatment Note [facility] Date: 06/05/2021 PRECAUTIONS: Quadriplegia C6-7 SUBJECTIVE: Favio is agreeable to participating in PT. Post session, he states that he felt good sitting up in the chair without reclining the back or the legrest. OBJECTIVE: PAIN: Patient c/o minimal B shoulder discomfort with ther ex BED MOBILITY/TRANSFERS Rolling L/R: Max A Bed-Chair: Dot lift with Max A x2 Chair-bed: Dot lift with Max A x2 Patient was positioned in recliner chair with hips, knees, and ankles at 90 degrees of flexion, and B UE and neck supported with pillows. GAIT: Unable THEREX: Patient was instructed in supine punch ups, bicep curls, cross reaches, and shoulder flexion. Patient requires minimal assist with all exercises on left, due to increased difficulty due to positioning. While seated in chair, patient was instructed in bilateral side bends and seated crunches with B UE support and assist. ASSESSMENT: Patient tolerated session well, although with c/o increased difficulty with UE exercises due to supine positioning for increased challenge. PLAN: Continue with UE exercises, and trunk strengthening and stabilization activities for improved sitting tolerance. TREATMENT CODE/TIME: 30 minutes; 53463, 72375 (11:35)
[2021-06-05] MEDS: HYDROmorphone 2 MG/ML VIAL 1 MG IVP ×2 (18:13→21:25)
[2021-06-05 19:19] VITALS: BP 137/71; PULSE 78; RESP 18; TEMP 36.8; O2SAT 96
[2021-06-05] MEDS: Gabapentin 300 MG CAP 900 MG PO (21:23)
[2021-06-05] MEDS: diazePAM 5 MG TAB 2.5 MG PO (21:24)
[2021-06-05] MEDS: diphenhydrAMINE 25 MG CAP 50 MG PO (21:24)
[2021-06-05] MEDS: Melatonin 3 MG TAB 9 MG PO (21:24)
[2021-06-06 00:29] VITALS: BP 106/58; PULSE 79; RESP 17; TEMP 36.2; O2SAT 96
[2021-06-06] MEDS: Acetaminophen 500 MG TAB 1000 MG PO ×3 (06:26→21:14)
[2021-06-06] MEDS: Methylphenidate 10 MG TAB PO ×2 (06:26→12:11)
[2021-06-06] MEDS: Dronabinol 2.5 MG CAP PO ×2 (06:26→12:11)
[2021-06-06 07:40] VITALS: BP 119/73; PULSE 67; RESP 18; TEMP 36.6; O2SAT 97
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
[2021-06-06] MEDS: Polyethylene Glycol 3350 17 GM PACKET PO (09:48)
[2021-06-06] MEDS: Protein Nutritional Supplement 16 GM 1 OUNCE PACKET PO ×2 (09:48→20:05)
[2021-06-06] MEDS: Senna TAB 2 TAB PO ×2 (09:49→20:06)
[2021-06-06] MEDS: cefTRIAXone 2 GM/50 ML BAG IVPB (09:49)
[2021-06-06] MEDS: Apixaban 5 MG TAB PO ×2 (09:49→20:06)
[2021-06-06] MEDS: busPIRone 5 MG TAB 20 MG PO ×2 (09:49→20:06)
[2021-06-06] MEDS: Gabapentin 300 MG CAP 600 MG PO ×3 (09:50→17:46)
[2021-06-06] MEDS: Spironolactone 25 MG TAB PO (09:50)
[2021-06-06] MEDS: Normal Saline Flush 10 ML SYR IVP ×3 (09:50→21:18)
[2021-06-06] MEDS: Magnesium Chloride 64 MG TABCR PO (09:50)
[2021-06-06] MEDS: Fluticasone NASAL SPRAY 16 GM BTL NS (09:50)
[2021-06-06] MEDS: Lidocaine 5% Patch 2 PATCH TP (09:50)
[2021-06-06] MEDS: Cetirizine 10 MG TAB PO (09:51)
[2021-06-06] MEDS: Ascorbic Acid 500 MG TAB PO ×2 (09:51→20:06)
[2021-06-06] MEDS: Multivitamin w/Minerals TAB 1 TAB PO (09:51)
[2021-06-06] MEDS: amLODIPine 10 MG TAB PO (09:51)
[2021-06-06] MEDS: Pantoprazole 40 MG TABCR PO (09:51)
[2021-06-06] MEDS: diazePAM 5 MG TAB PO ×3 (09:51→21:01)
[2021-06-06] MEDS: DULoxetine 30 MG CAP 90 MG PO (09:52)
[2021-06-06] MEDS: Docusate Sodium 100 MG CAP PO ×3 (09:52→20:06)
[2021-06-06] MEDS: HYDROmorphone 2 MG/ML VIAL 1 MG IVP ×3 (11:06→21:18)
--- NOTE | 2021-06-06 14:48 | CHAPLAIN ---
Favio was watching [employer] today when I visited. It's his favorite show and he watches it on his iPad. He said he has an appointment on to see about a procedure that could improve the functions in his hands. He also said the plan is still for him to move in with Nicki, the mother of his kids, when he is discharged. According to Dr. Zhu's PC notes from 06/03/21, he's been told that he won't be able to move into Nicki's. Favio continues to be pleasant and grateful for visits.
[2021-06-06 15:30] VITALS: BP 110/66; PULSE 74; RESP 18; TEMP 36.5; O2SAT 99
[2021-06-06] MEDS: fentaNYL 75 MCG PATCH TD (20:05)
[2021-06-06] MEDS: diazePAM 5 MG TAB 2.5 MG PO (21:14)
[2021-06-06] MEDS: Gabapentin 300 MG CAP 900 MG PO (21:15)
[2021-06-06] MEDS: diphenhydrAMINE 25 MG CAP 50 MG PO (21:17)
[2021-06-06] MEDS: Melatonin 3 MG TAB 9 MG PO (21:17)
[2021-06-07 01:49] VITALS: BP 161/77; PULSE 79; RESP 17; TEMP 36.3; O2SAT 94
[2021-06-07] MEDS: Methylphenidate 10 MG TAB PO ×2 (06:21→11:37)
[2021-06-07] MEDS: Acetaminophen 500 MG TAB 1000 MG PO ×3 (06:21→21:14)
[2021-06-07] MEDS: Dronabinol 2.5 MG CAP PO ×2 (06:21→11:37)
[2021-06-07 08:00] VITALS: BP 115/73; PULSE 71; RESP 18; TEMP 36.9; O2SAT 95
[2021-06-07] MEDS: Protein Nutritional Supplement 16 GM 1 OUNCE PACKET PO ×2 (08:40→19:19)
[2021-06-07] MEDS: DULoxetine 30 MG CAP 90 MG PO (08:41)
[2021-06-07] MEDS: Senna TAB 2 TAB PO ×2 (08:41→19:39)
[2021-06-07] MEDS: Lidocaine 5% Patch 2 PATCH TP (08:41)
[2021-06-07] MEDS: Polyethylene Glycol 3350 17 GM PACKET PO (08:41)
[2021-06-07] MEDS: cefTRIAXone 2 GM/50 ML BAG IVPB (08:41)
[2021-06-07] MEDS: Apixaban 5 MG TAB PO ×2 (08:41→19:21)
[2021-06-07] MEDS: Ascorbic Acid 500 MG TAB PO ×2 (08:42→19:21)
[2021-06-07] MEDS: amLODIPine 10 MG TAB PO (08:42)
[2021-06-07] MEDS: Gabapentin 300 MG CAP 600 MG PO ×3 (08:42→18:23)
[2021-06-07] MEDS: Pantoprazole 40 MG TABCR PO (08:42)
[2021-06-07] MEDS: Spironolactone 25 MG TAB PO (08:42)
[2021-06-07] MEDS: Docusate Sodium 100 MG CAP PO ×3 (08:42→19:21)
[2021-06-07] MEDS: Magnesium Chloride 64 MG TABCR PO (08:42)
[2021-06-07] MEDS: Multivitamin w/Minerals TAB 1 TAB PO (08:42)
[2021-06-07] MEDS: busPIRone 5 MG TAB 20 MG PO ×2 (08:42→19:21)
[2021-06-07] MEDS: diazePAM 5 MG TAB PO ×3 (08:43→19:21)
[2021-06-07] MEDS: Normal Saline Flush 10 ML SYR IVP ×3 (08:43→21:13)
[2021-06-07] MEDS: Cetirizine 10 MG TAB PO (08:43)
--- NOTE | 2021-06-07 10:01 | OTTR_ITS ---
Date of service: 06/07/21 Time of Service: 10:01 Occupational Therapy Notes Occupational Therapy Inpatient Treatment Note Date: 06/07/21 PRECAUTIONS: Fall, standard, DNR/DNI SUBJECTIVE: Pt was sitting in his bed when OT arrived. He is agreeable to OT session noting that he is excited about going down to [place] for consultation for his hands. OBJECTIVE: PAIN:c/o pain in (B) UE (L) > (R) Manual Therapy [id number]: OT performed joint blocking techniques, manual mobilization to pts (B) UE with PROM to pts wrists, forearms, elbows and digits. Functionally pt performed this with increased (I) with his grasp and release but was sore in his (B) elbows due to dressing routine yesterday with OT. OT performed AA ROM with tone reduction techniques needed in his (L) UE which he tolerated well. OT will continue to monitor pts response to todays session and progress accordingly. OT recommends: 1. Hospital bed with alternating pressure for increased care of pts wounds and medically necessary due to pts decreased functional mobility and high risk of wounds. 2. A christa lift for transportation to and from bed to wheelchair etc.. to increase pts safety and pressure relief on his body during transfers. 3. His electric wheelchair transferred from [facility]- pt reports that he has an electric wheelchair at the facility and they are waiting for him to return home to get this delivered. 4. [place] cuff- this adaptive equipment will be utilized to maximize pts functional (I) in his ADL/IADL routines but supporting his decreased hand function and control 5. OT recommends that pt has HH OT/PT as well as a caregiver 24 hours/day given his high needs and inability to cook, clean and take care of his toileting routines. Pt will also need (A) with functional mobility and will be unable to perform this without (A). 6. Plate scoop- to increased pts functional (I) with his eating routine. 7. Caregiver training for ADLs and (A) with ADL routines 8. Ramp to get in and out of residence TREATMENT CODES/TIME: 51199, 15 minutes (09:30) Michelle Pearce, OTR/[facility]
[2021-06-07] MEDS: Fluticasone NASAL SPRAY 16 GM BTL NS (10:24)
[2021-06-07 15:22] VITALS: BP 106/68; PULSE 77; RESP 18; TEMP 37.2; O2SAT 97
--- NOTE | 2021-06-07 16:36 | PHACLINREV_ITS ---
Pharmacy Admission Review - Admission Clinical Review (Last Reviewed 06/01/21 @ 15:38 by Eliane Tolliver NP) Palliative care encounter (Acute) Discharge planning issues (Acute) No Known Allergies Allergy (Unverified 11/26/18 03:46) Resuscitation Status DNR/DNI Height 6 ft 2 in Weight 83.5 kg - Renal Dosing Medications needing adjustments: Reviewed (Crcl ~122 mL/min current meds okay.) - Anticoagulation DVT Prophylaxis: N/A Therapeutic Anticoagulation: Reviewed Medications: Apixaban - Opiate Usage Evaluate Pain Scale/Pains Meds: Reviewed Scheduled Bowel Reg ordered if on Opiates?: Yes (angela and prn meds) - Relevant Labs Electrolytes, C-Reactive P, ESR: N/A - DM Control Insulin Dosing: N/A - Heart Failure/WI EF%, JAYLON's, B-Blockers, Diuretics: N/A - BP Control BP Control: Blood Pressure 106/68 Blood Pressure 115/73 If elevated: N/A - Qtc Review If Elevated: N/A - IV to PO Switch IV Medications: Reviewed - Home Meds Home Med List reviewed: Reviewed (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 Antibiotic Activity - Pharmacy Antibiotic Review Pharmacy Antibiotic Activity: Reviewed, no change (Ceftriaxone continues, due to d/c tomorrow.)
[2021-06-07] MEDS: Melatonin 3 MG TAB 9 MG PO (21:14)
[2021-06-07] MEDS: Gabapentin 300 MG CAP 900 MG PO (21:14)
[2021-06-07] MEDS: HYDROmorphone 2 MG/ML VIAL 1 MG IVP (21:14)
[2021-06-07] MEDS: diazePAM 5 MG TAB 2.5 MG PO (21:15)
[2021-06-07] MEDS: diphenhydrAMINE 25 MG CAP 50 MG PO (21:15)
[2021-06-08 01:23] VITALS: BP 109/68; PULSE 67; RESP 16; TEMP 36.2; O2SAT 99
[2021-06-08] MEDS: Methylphenidate 10 MG TAB PO ×2 (06:13→11:15)
[2021-06-08] MEDS: Acetaminophen 500 MG TAB 1000 MG PO ×3 (06:13→21:32)
[2021-06-08] MEDS: Dronabinol 2.5 MG CAP PO ×2 (06:13→11:15)
[2021-06-08 07:06] VITALS: BP 114/74; PULSE 68; RESP 15; TEMP 36.4; O2SAT 96
[2021-06-08] MEDS: HYDROmorphone 2 MG/ML VIAL 1 MG IVP ×2 (09:09→21:30)
[2021-06-08] MEDS: Normal Saline Flush 10 ML SYR IVP ×6 (09:09→21:43)
[2021-06-08] MEDS: Gabapentin 300 MG CAP 600 MG PO ×3 (11:04→17:06)
[2021-06-08] MEDS: Magnesium Chloride 64 MG TABCR PO ×2 (11:04→21:31)
[2021-06-08] MEDS: Docusate Sodium 100 MG CAP PO ×3 (11:04→21:33)
[2021-06-08] MEDS: Ascorbic Acid 500 MG TAB PO ×2 (11:05→21:31)
[2021-06-08] MEDS: Pantoprazole 40 MG TABCR PO (11:05)
[2021-06-08] MEDS: Senna TAB 2 TAB PO ×2 (11:05→21:31)
[2021-06-08] MEDS: Multivitamin w/Minerals TAB 1 TAB PO (11:05)
[2021-06-08] MEDS: Cetirizine 10 MG TAB PO (11:06)
[2021-06-08] MEDS: Apixaban 5 MG TAB PO ×2 (11:06→21:33)
[2021-06-08] MEDS: amLODIPine 10 MG TAB PO (11:06)
[2021-06-08] MEDS: Spironolactone 25 MG TAB PO (11:07)
[2021-06-08] MEDS: diazePAM 5 MG TAB PO ×3 (11:07→21:32)
[2021-06-08] MEDS: busPIRone 5 MG TAB 20 MG PO ×2 (11:07→21:32)
[2021-06-08] MEDS: Protein Nutritional Supplement 16 GM 1 OUNCE PACKET PO ×2 (11:08→21:30)
[2021-06-08] MEDS: Lidocaine 5% Patch 2 PATCH TP (11:09)
[2021-06-08] MEDS: Polyethylene Glycol 3350 17 GM PACKET PO (11:09)
[2021-06-08] MEDS: DULoxetine 30 MG CAP 90 MG PO (11:15)
[2021-06-08 12:26] LABS: Abs Immature Grans 0.04 10^3/uL (0.0-0.06); Absolute Basophil Count 0.03 10^3/uL (0.0-0.2); Absolute Eosinophil Count 0.31 10^3/uL (0.0-0.7); Absolute Lymphocyte Count 1.36 10^3/uL (1.2-3.4); Absolute Monocyte Count 0.71 10^3/uL (0.1-0.8); Absolute Neutrophil Count 7.94 10^3/uL (1.2-6.7); Basophils % 0.3; HCT 35.9 % (40.0-50.0); HGB 11.4 g/dL (13.5-17.5); Immature Grans % 0.4; Lymphocytes % 13.1; MCH 28.3 pg (27.0-33.0); MCHC 31.8 % (32.0-36.0); MCV 89.1 fL (80-95); MPV 10.4 fL (8.0-11.0); Monocytes % 6.8; Neutrophils % 76.4; Nucleated RBC 0 %; Platelet Count 224 10^3/uL (130-400); RBC 4.03 10^6/uL (4.36-5.78); RDW 15.1 % (11.8-14.1); RDW-SD 49.5 fL; WBC 10.39 10^3/uL (4.4-10.8)
[2021-06-08] MEDS: Fluticasone NASAL SPRAY 16 GM BTL NS (12:40)
[2021-06-08 12:46] LABS: Anion Gap 4.8 mmol/L (3-11); BUN 35 mg/dL (7-18); CO2 30.2 mmol/L (21.0-32.0); CREATININE 0.6 mg/dL (0.70-1.30); Calcium 10.9 mg/dL (8.5-10.1); Chloride 104 mmol/L (98-107); Glucose 111 mg/dL (74-106); Magnesium 1.6 mg/dL (1.8-2.4); Potassium 4.5 mmol/L (3.5-5.1); Sodium 139 mmol/L (136-145)
[2021-06-08] MEDS: cefTRIAXone 2 GM/50 ML BAG IVPB (12:47)
[2021-06-08 16:05] VITALS: BP 114/71; PULSE 75; RESP 18; TEMP 37.1; O2SAT 96
[2021-06-08] MEDS: MAGNESIUM SULFATE 2 GM/50 ML BAG IVPB (18:01)
--- NOTE | 2021-06-08 20:12 | NUR.NOTE ---
On assessment of patient, [facility] bed rails noted to be down. I attempted to place rails up but the rail to the left side will not remain in the upright position. CC Bindu was informed and she also attempted to place bed rail up. Same was unsuccessful, CC state she will inform maintenance. Patient is due for dressing change today, state he does not want to do the dressing change during the night charge CC was also informed.
[2021-06-08] MEDS: diphenhydrAMINE 25 MG CAP 50 MG PO (21:31)
[2021-06-08] MEDS: Gabapentin 300 MG CAP 900 MG PO (21:31)
[2021-06-08] MEDS: Melatonin 3 MG TAB 9 MG PO (21:32)
[2021-06-08] MEDS: diazePAM 5 MG TAB 2.5 MG PO (21:33)
[2021-06-08 23:35] VITALS: BP 112/71; PULSE 82; RESP 19; TEMP 37.1; O2SAT 96
[2021-06-09] MEDS: Pantoprazole 40 MG TABCR PO (06:39)
[2021-06-09] MEDS: Dronabinol 2.5 MG CAP PO ×2 (06:39→11:18)
[2021-06-09] MEDS: Acetaminophen 500 MG TAB 1000 MG PO ×3 (06:39→21:38)
[2021-06-09] MEDS: Methylphenidate 10 MG TAB PO ×2 (06:39→11:18)
[2021-06-09 07:55] VITALS: BP 110/67; PULSE 69; RESP 18; TEMP 36.8; O2SAT 95
[2021-06-09] MEDS: Lidocaine 5% Patch 2 PATCH TP (07:55)
[2021-06-09] MEDS: Protein Nutritional Supplement 16 GM 1 OUNCE PACKET PO ×2 (07:55→21:36)
[2021-06-09] MEDS: Polyethylene Glycol 3350 17 GM PACKET PO (07:55)
[2021-06-09] MEDS: Fluticasone NASAL SPRAY 16 GM BTL NS (07:56)
[2021-06-09] MEDS: Gabapentin 300 MG CAP 600 MG PO ×3 (07:56→17:39)
[2021-06-09] MEDS: Docusate Sodium 100 MG CAP PO ×3 (07:57→21:37)
[2021-06-09] MEDS: DULoxetine 30 MG CAP 90 MG PO (07:57)
[2021-06-09] MEDS: Multivitamin w/Minerals TAB 1 TAB PO (07:57)
[2021-06-09] MEDS: Magnesium Chloride 64 MG TABCR PO ×2 (07:58→21:39)
[2021-06-09] MEDS: diazePAM 5 MG TAB PO ×3 (07:58→21:38)
[2021-06-09] MEDS: amLODIPine 10 MG TAB PO (07:58)
[2021-06-09] MEDS: Ascorbic Acid 500 MG TAB PO ×2 (07:58→21:38)
[2021-06-09] MEDS: busPIRone 5 MG TAB 20 MG PO ×2 (07:58→21:38)
[2021-06-09] MEDS: Cetirizine 10 MG TAB PO (07:58)
[2021-06-09] MEDS: Senna TAB 2 TAB PO ×2 (07:58→21:38)
[2021-06-09] MEDS: Apixaban 5 MG TAB PO ×2 (07:59→21:39)
[2021-06-09] MEDS: Normal Saline Flush 10 ML SYR IVP ×2 (08:00→21:40)
[2021-06-09 15:37] VITALS: BP 109/74; PULSE 78; RESP 18; TEMP 37.2; O2SAT 95
[2021-06-09] MEDS: HYDROmorphone 2 MG/ML VIAL 1 MG IVP ×2 (15:50→21:35)
--- NOTE | 2021-06-09 16:51 | W.PM.PROGNOT ---
Date of Service Date of service: 06/09/21 Time of Service: 16:51 Assessment and Plan Assessment and plan (1) Acute osteomyelitis of sacrum: Status: Chronic Assessment and plan: The R buttock wound seen today does appear to have more discharge in it than I would like. Given his still elevated (but improved) CRP, would resume cipro and recheck CRP in a couple of days. Monitor fever curve. If CRP worse, would seek ID consult. (2) Major depressive disorder: Status: Chronic Assessment and plan: Continue duloxetine Qualifiers: Active/Remission status: currently active Major depression episode severity: moderate Major depression recurrence: single episode Qualified Code(s): F32.1 - Major depressive disorder, single episode, moderate (3) Quadriplegia: Status: Chronic Assessment and plan: Pain is controlled. Continue PT/OT. [facility] Subjective Subjective Interval history since last seen: Favio states his pain has been controlled. He denies chest pain, shortness of breath, cough, unusual nasal congestion, abdominal pain. Ostomy has been functioning well. I witnessed a wound vac change today on his right buttock wound - this appears to have more slough than expected. Exam Narrative Exam Narrative: General: very pleasant middle-aged male, A&Ox3, seen during wound vac change HEENT: EOMI, MMM Heart: RRR Lungs: CTAB Abdomen: soft,nontender, ostomy with a good amount of brown output Extremities: trace edema at B feet Objective Last Vital Signs Temp 37.2 C 06/09/21 15:37 Pulse 78 06/09/21 15:37 Resp 18 06/09/21 15:37 BP 109/74 06/09/21 15:37 Pulse Ox 95 06/09/21 15:37
[2021-06-09] MEDS: Ciprofloxacin 500 MG TAB PO ×2 (17:39→21:37)
--- NOTE | 2021-06-09 18:42 | NUR.NOTE ---
Nursing Note: Patient was tired this morning. he was irritable around lunch time today. He went out side with family after his lunch. he was irritable prior to, but came back in a better mood. He did agree to have his wound vac dressings changed, Mother of his children was present, and she sat quietly while dressings were changed. She helped set him up for dinner afterwards. He started a course of cipro this afternoon
[2021-06-09] MEDS: fentaNYL 75 MCG PATCH TD (21:36)
[2021-06-09] MEDS: Melatonin 3 MG TAB 9 MG PO (21:37)
[2021-06-09] MEDS: Gabapentin 300 MG CAP 900 MG PO (21:38)
[2021-06-09] MEDS: diphenhydrAMINE 25 MG CAP 50 MG PO (21:39)
[2021-06-09] MEDS: diazePAM 5 MG TAB 2.5 MG PO (21:39)
[2021-06-10 00:27] VITALS: BP 114/74; PULSE 80; RESP 19; TEMP 36.6; O2SAT 97
[2021-06-10] MEDS: Dronabinol 2.5 MG CAP PO ×2 (06:43→11:42)
[2021-06-10] MEDS: Pantoprazole 40 MG TABCR PO (06:44)
[2021-06-10] MEDS: Acetaminophen 500 MG TAB 1000 MG PO ×3 (06:45→22:10)
[2021-06-10] MEDS: Methylphenidate 10 MG TAB PO ×2 (06:45→11:42)
--- NOTE | 2021-06-10 09:02 | W.PALLCONSUL ---
Date of service: 06/10/21 Time of Service: 09:02 [facility] Medical History Acute embolism and thrombosis of deep vein of right lower extremity Anxiety disorder Aspiration into airway C. difficile colitis Constipation Constipation due to neurogenic bowel Decubitus skin ulcer Decubitus ulcer of buttock, stage 4 Dislocation of C6/C7 cervical vertebrae DNR (do not resuscitate) DVT (deep venous thrombosis) DVT prophylaxis Encounter for wound care Fall down embankment Fusion of spine H/O deep venous thrombosis Hypokalemia Hypotension Ileus Iron deficiency anemia Large bowel obstruction Major depressive disorder Malnutrition following gastrointestinal surgery Neurogenic bladder Neurogenic bowel Open wound of abdominal wall Palliative care patient Physician orders for life-sustaining treatment (POLST) form indicates patient wish for og-oyx-spybvypeadg status Quadriplegia Right arm pain Visit for wound check Surgical History S/P colostomy Social History Smoking/Tobacco Use Status: Never Smoking risk assessment performed?: Yes Alcohol Intake: current Alcohol Intake frequency: a few times a week Drug use: Occasionally Substance use type: marijuana Do you feel safe at home: Yes Do you feel safe in your relationship?: Yes Results Last Vital Signs Temp 97.9 F 06/10/21 00:27 Pulse 80 06/10/21 00:27 Resp 19 06/10/21 00:27 BP 114/74 06/10/21 00:27 Pulse Ox 97 06/10/21 00:27 Labs Result diagrams: 06/08/21 11:50 06/08/21 11:50
[2021-06-10 09:35] VITALS: BP 110/68; PULSE 61; RESP 17; TEMP 36.6; O2SAT 95
[2021-06-10] MEDS: Polyethylene Glycol 3350 17 GM PACKET PO (09:44)
[2021-06-10] MEDS: Lidocaine 5% Patch 2 PATCH TP (09:44)
[2021-06-10] MEDS: Protein Nutritional Supplement 16 GM 1 OUNCE PACKET PO ×2 (09:44→22:17)
[2021-06-10] MEDS: Docusate Sodium 100 MG CAP PO ×3 (09:45→22:15)
[2021-06-10] MEDS: Normal Saline Flush 10 ML SYR IVP ×2 (09:45→22:18)
[2021-06-10] MEDS: Ciprofloxacin 500 MG TAB PO ×2 (09:46→22:14)
[2021-06-10] MEDS: Senna TAB 2 TAB PO ×2 (09:46→22:09)
[2021-06-10] MEDS: amLODIPine 10 MG TAB PO (09:46)
[2021-06-10] MEDS: Apixaban 5 MG TAB PO ×2 (09:46→22:14)
[2021-06-10] MEDS: Cetirizine 10 MG TAB PO (09:46)
[2021-06-10] MEDS: busPIRone 5 MG TAB 20 MG PO ×2 (09:47→22:13)
[2021-06-10] MEDS: DULoxetine 30 MG CAP 90 MG PO (09:47)
[2021-06-10] MEDS: Gabapentin 300 MG CAP 600 MG PO ×3 (09:47→18:17)
[2021-06-10] MEDS: Magnesium Chloride 64 MG TABCR PO ×2 (09:47→22:17)
[2021-06-10] MEDS: Fluticasone NASAL SPRAY 16 GM BTL NS (09:48)
[2021-06-10] MEDS: Ascorbic Acid 500 MG TAB PO ×2 (09:48→22:15)
[2021-06-10] MEDS: diazePAM 5 MG TAB PO ×2 (09:48→14:11)
[2021-06-10] MEDS: Multivitamin w/Minerals TAB 1 TAB PO (09:48)
[2021-06-10 15:30] VITALS: BP 128/75; PULSE 73; RESP 18; TEMP 37.1; O2SAT 97
[2021-06-10] MEDS: diphenhydrAMINE 25 MG CAP 50 MG PO (22:15)
[2021-06-10] MEDS: diazePAM 5 MG TAB 2.5 MG PO (22:15)
[2021-06-10] MEDS: Melatonin 3 MG TAB 9 MG PO (22:17)
[2021-06-10] MEDS: Gabapentin 300 MG CAP 900 MG PO (22:17)
[2021-06-10] MEDS: HYDROmorphone 2 MG/ML VIAL 1 MG IVP (22:19)
[2021-06-11 01:01] VITALS: BP 110/68; PULSE 61; RESP 18; TEMP 36.6; O2SAT 98
[2021-06-11] MEDS: Pantoprazole 40 MG TABCR PO (06:25)
[2021-06-11] MEDS: Methylphenidate 10 MG TAB PO ×2 (06:25→11:21)
[2021-06-11] MEDS: Dronabinol 2.5 MG CAP PO ×2 (06:25→11:21)
[2021-06-11] MEDS: Acetaminophen 500 MG TAB 1000 MG PO ×3 (06:26→21:10)
--- NOTE | 2021-06-11 07:44 | W.PALPGNOTE ---
Date of service: 06/10/21 Time of Service: 07:44 Assessment and Plan Assessment and plan (1) Acute osteomyelitis of sacrum: Status: Chronic (2) Quadriplegia: Status: Chronic (3) Palliative care encounter: Status: Acute Assessment and plan: Overall big improvement from last week. His mood is much much better and his pain is better controlled. I have spoken with care management. I do not see how one person would be able to care for Favio without many resources available. I do think he will require choices for care which is a Medicaid program. He seems reluctant to agree to Medicaid. I will see him after he returns from [facility]. Regarding his marijuana card, I will look into the time constraints as well as what I would feel comfortable signing regarding mental health etc. certainly physically he would be able to qualify. Subjective Subjective Patient reports: pain is less Interval history since last seen: His pain is considerably better. He was able to move his shoulders in both arms. He can go across his body easily with his right arm and is starting to be able to do it with his left arm. He does feel that the medication that he is presently on is working for his pain. He is very happy with this as that is been a major concern during his hospital stay. He is looking forward to going to [facility] to find out if there is a procedure that can help him to use his hands better. Roundtrip ambulance transportation has been arranged by care management Quite upset with Medicaid. He states that he will be moving in with Nicki who was the mother of his daughter and she is caring for him. He would also like me to help him obtain a marijuana card. He already has his application in but he needs a mental health person in the [facility] state that he has PTSD. I am very willing to sign for marijuana card but there are rules about this. I need to have been seeing him for certain length of time and also I think with his quadriplegia his muscle spasms etc. he would qualify. Exam Narrative Exam Narrative: Lying in bed. He is utilizing his support with his pointer computers and phone etc. overall doing much better as far as his mood goes. He did not look to be in pain and admits to being very comfortable Objective Last Vital Signs Temp 97.9 F 06/11/21 01:01 Pulse 61 06/11/21 01:01 Resp 18 06/11/21 01:01 BP 110/68 06/11/21 01:01 Pulse Ox 98 06/11/21 01:01
[2021-06-11 08:19] VITALS: BP 176/84; PULSE 65; RESP 18; TEMP 36.7; O2SAT 97
--- NOTE | 2021-06-11 09:18 | OTTR_ITS ---
Date of service: 06/11/21 Time of Service: 08:20 Occupational Therapy Notes Occupational Therapy Inpatient Treatment Note Date: 06/11/21 PRECAUTIONS: fall, standard, DNR/DNI SUBJECTIVE: Pt was sitting in bed when OT arrived, he is upset that his medications are being given to him at 10:00pm and would like them sooner. OT discusses this with RN and RN is going to discuss this with pt later today. OBJECTIVE: PAIN:c/o pain in (B) shoulders but not consistently EATING: Sitting in bed pt requires max (A) with donning utensils on his (R) hand but is (I) with stabbing in his food, bringing to his mouth. He requires max (A) Set up for placement of plate and cutting of his food. Functionally he is making increased gains. OT feels that pt would benefit from a plate scoop to support his plate and functional (I) with his eating. ASSESSMENT/PLAN: Pt is tolerating his eating routines well, he is managing increased (I) in his (B) UE and he is receptive to increasing his (I). TREATMENT CODES/TIME: 87129, 15 minutes (08:20) Michelle Pearce OTR/[facility]
[2021-06-11] MEDS: Lidocaine 5% Patch 2 PATCH TP (09:36)
[2021-06-11] MEDS: Protein Nutritional Supplement 16 GM 1 OUNCE PACKET PO ×2 (09:36→21:14)
[2021-06-11] MEDS: Apixaban 5 MG TAB PO ×2 (09:37→20:53)
[2021-06-11] MEDS: Polyethylene Glycol 3350 17 GM PACKET PO (09:37)
[2021-06-11] MEDS: DULoxetine 30 MG CAP 90 MG PO (09:38)
[2021-06-11] MEDS: Magnesium Chloride 64 MG TABCR PO ×2 (09:38→20:57)
[2021-06-11] MEDS: Senna TAB 2 TAB PO ×2 (09:38→20:54)
[2021-06-11] MEDS: amLODIPine 10 MG TAB PO (09:39)
[2021-06-11] MEDS: Docusate Sodium 100 MG CAP PO ×3 (09:39→20:52)
[2021-06-11] MEDS: Ciprofloxacin 500 MG TAB PO ×2 (09:39→20:53)
[2021-06-11] MEDS: busPIRone 5 MG TAB 20 MG PO ×2 (09:39→20:54)
[2021-06-11] MEDS: diazePAM 5 MG TAB PO ×3 (09:40→20:56)
[2021-06-11] MEDS: Cetirizine 10 MG TAB PO (09:40)
[2021-06-11] MEDS: Multivitamin w/Minerals TAB 1 TAB PO (09:40)
[2021-06-11] MEDS: Gabapentin 300 MG CAP 600 MG PO ×3 (09:40→18:18)
[2021-06-11] MEDS: Ascorbic Acid 500 MG TAB PO ×2 (09:41→20:57)
[2021-06-11] MEDS: Fluticasone NASAL SPRAY 16 GM BTL NS (09:41)
[2021-06-11] MEDS: Normal Saline Flush 10 ML SYR IVP ×2 (09:42→20:59)
[2021-06-11] MEDS: HYDROmorphone 2 MG/ML VIAL 1 MG IVP ×2 (13:47→21:09)
--- NOTE | 2021-06-11 14:00 | WOUNDCONS ---
- If Service Date Differs Date of service: 06/11/21 Time of Service: 14:00 Wound Initial Evaluation Narrative: weekly pictures and measurements as ordered. Wounds continue to gradually decrease in size
[2021-06-11 16:07] VITALS: BP 144/68; PULSE 71; RESP 18; TEMP 36.7; O2SAT 97
[2021-06-11] MEDS: Melatonin 3 MG TAB 9 MG PO (20:53)
[2021-06-11] MEDS: diphenhydrAMINE 25 MG CAP 50 MG PO (20:55)
[2021-06-11] MEDS: Gabapentin 300 MG CAP 900 MG PO (21:10)
[2021-06-11] MEDS: diazePAM 5 MG TAB 2.5 MG PO (21:27)
[2021-06-12] VITALS: BP 164/75; PULSE 68; RESP 17; TEMP 36.4; O2SAT 96
[2021-06-12] MEDS: Acetaminophen 500 MG TAB 1000 MG PO ×3 (06:51→21:46)
[2021-06-12] MEDS: Methylphenidate 10 MG TAB PO ×2 (06:51→10:52)
[2021-06-12] MEDS: Dronabinol 2.5 MG CAP PO ×2 (06:51→10:52)
[2021-06-12] MEDS: Normal Saline Flush 10 ML SYR IVP ×3 (06:52→21:50)
[2021-06-12] MEDS: Pantoprazole 40 MG TABCR PO (06:52)
[2021-06-12 07:52] LABS: Anion Gap 4.7 mmol/L (3-11); BUN 26 mg/dL (7-18); C-Reactive Protein 2.89 mg/dL (0.0-0.3); CO2 29.3 mmol/L (21.0-32.0); CREATININE 0.6 mg/dL (0.70-1.30); Calcium 11.4 mg/dL (8.5-10.1); Chloride 105 mmol/L (98-107); Glucose 113 mg/dL (74-106); Magnesium 1.7 mg/dL (1.8-2.4); Potassium 4.1 mmol/L (3.5-5.1); Sodium 139 mmol/L (136-145)
[2021-06-12 08:05] LABS: Abs Immature Grans 0.02 10^3/uL (0.0-0.06); Absolute Basophil Count 0.02 10^3/uL (0.0-0.2); Absolute Eosinophil Count 0.27 10^3/uL (0.0-0.7); Absolute Lymphocyte Count 1.24 10^3/uL (1.2-3.4); Absolute Monocyte Count 0.48 10^3/uL (0.1-0.8); Absolute Neutrophil Count 3.82 10^3/uL (1.2-6.7); Basophils % 0.3; Eosinophils % 4.6; HCT 34.1 % (40.0-50.0); HGB 10.9 g/dL (13.5-17.5); Immature Grans % 0.3; Lymphocytes % 21.2; MCH 28.2 pg (27.0-33.0); MCV 88.1 fL (80-95); MPV 10.3 fL (8.0-11.0); Monocytes % 8.2; Neutrophils % 65.4; Nucleated RBC 0 %; Platelet Count 207 10^3/uL (130-400); RBC 3.87 10^6/uL (4.36-5.78); RDW 14.7 % (11.8-14.1); RDW-SD 47.4 fL; WBC 5.85 10^3/uL (4.4-10.8)
[2021-06-12 08:34] LABS: Procalcitonin < 0.1 ng/mL
[2021-06-12] MEDS: Polyethylene Glycol 3350 17 GM PACKET PO (09:03)
[2021-06-12] MEDS: Protein Nutritional Supplement 16 GM 1 OUNCE PACKET PO ×2 (09:04→21:50)
[2021-06-12] MEDS: Multivitamin w/Minerals TAB 1 TAB PO (09:04)
[2021-06-12] MEDS: Lidocaine 5% Patch 2 PATCH TP (09:04)
[2021-06-12] MEDS: busPIRone 5 MG TAB 20 MG PO ×2 (09:05→21:47)
[2021-06-12] MEDS: Senna TAB 2 TAB PO ×2 (09:05→21:46)
[2021-06-12] MEDS: Magnesium Chloride 64 MG TABCR PO ×2 (09:05→21:48)
[2021-06-12] MEDS: diazePAM 5 MG TAB PO ×3 (09:06→21:48)
[2021-06-12] MEDS: amLODIPine 10 MG TAB PO (09:06)
[2021-06-12] MEDS: Ciprofloxacin 500 MG TAB PO ×2 (09:06→21:48)
[2021-06-12] MEDS: DULoxetine 30 MG CAP 90 MG PO (09:06)
[2021-06-12] MEDS: Docusate Sodium 100 MG CAP PO ×3 (09:06→21:46)
[2021-06-12] MEDS: Apixaban 5 MG TAB PO ×2 (09:06→21:48)
[2021-06-12] MEDS: Gabapentin 300 MG CAP 600 MG PO ×3 (09:07→18:07)
[2021-06-12] MEDS: Cetirizine 10 MG TAB PO (09:07)
[2021-06-12] MEDS: Ascorbic Acid 500 MG TAB PO ×2 (09:07→21:47)
[2021-06-12 10:13] VITALS: BP 107/66; PULSE 74; RESP 18; TEMP 36.9; O2SAT 95
[2021-06-12] MEDS: Fluticasone NASAL SPRAY 16 GM BTL NS (10:41)
[2021-06-12] MEDS: MAGNESIUM SULFATE 2 GM/50 ML BAG IVPB (10:42)
[2021-06-12 13:34] VITALS: O2SAT 96
[2021-06-12 15:54] VITALS: BP 140/86; PULSE 74; RESP 18; TEMP 36.8; O2SAT 97
[2021-06-12] MEDS: HYDROmorphone 2 MG/ML VIAL 1 MG IVP ×2 (18:07→21:50)
[2021-06-12 21:30] VITALS: O2SAT 96
[2021-06-12] MEDS: Gabapentin 300 MG CAP 900 MG PO (21:47)
[2021-06-12] MEDS: diphenhydrAMINE 25 MG CAP 50 MG PO (21:48)
[2021-06-12] MEDS: Melatonin 3 MG TAB 9 MG PO (21:48)
[2021-06-12] MEDS: diazePAM 5 MG TAB 2.5 MG PO (21:49)
[2021-06-12] MEDS: fentaNYL 75 MCG PATCH TD (21:59)
[2021-06-12 23:44] VITALS: BP 120/67; PULSE 71; RESP 17; TEMP 36; O2SAT 97
[2021-06-13 05:43] VITALS: O2SAT 97
[2021-06-13] MEDS: Dronabinol 2.5 MG CAP PO ×2 (06:18→10:41)
[2021-06-13] MEDS: Acetaminophen 500 MG TAB 1000 MG PO ×3 (06:18→21:42)
[2021-06-13] MEDS: Methylphenidate 10 MG TAB PO ×2 (06:18→10:41)
--- NOTE | 2021-06-13 07:06 | OT.INTREAT ---
Date of service: 06/13/21 Time of Service: 08:45 Occupational Therapy Notes Occupational Therapy Inpatient Treatment Note Date: 06/13/21 PRECAUTIONS: fall, standard, DNR/DNI SUBJECTIVE: Pt was sitting in bed when OT arrived, he is anxious about following up with the surgeon in [place] but states that he is also excited to see what he has to say. OBJECTIVE: PAIN:c/o pain in (B) shoulders but not consistently EATING: Sitting in bed pt requires max (A) with donning utensils on his (R) hand but is (I) with stabbing in his food, bringing to his mouth. He requires max (A) Set up for placement of plate and cutting of his food. Food is placed on his lap at lower level to decrease pain to his shoulders. Functionally he is making increased gains with his (B) UE use. OT feels that pt would benefit from a plate scoop to support his plate and functional (I) with his eating. ASSESSMENT/PLAN: Continue to progress pts functional (I) TREATMENT CODES/TIME: 40036, 15 minutes (08:45) Michelle Pearce OTR/L [facility]
[2021-06-13 08:25] VITALS: BP 123/76; PULSE 64; RESP 18; TEMP 36.5; O2SAT 99
[2021-06-13] MEDS: Lidocaine 5% Patch 2 PATCH TP (08:27)
[2021-06-13] MEDS: Protein Nutritional Supplement 16 GM 1 OUNCE PACKET PO ×2 (08:27→22:04)
[2021-06-13] MEDS: Polyethylene Glycol 3350 17 GM PACKET PO (08:27)
[2021-06-13] MEDS: DULoxetine 30 MG CAP 90 MG PO (08:28)
[2021-06-13] MEDS: Senna TAB 2 TAB PO ×2 (08:28→21:41)
[2021-06-13] MEDS: Gabapentin 300 MG CAP 600 MG PO ×3 (08:29→18:01)
[2021-06-13] MEDS: Magnesium Chloride 64 MG TABCR PO ×2 (08:29→21:41)
[2021-06-13] MEDS: diazePAM 5 MG TAB PO ×3 (08:29→21:42)
[2021-06-13] MEDS: Docusate Sodium 100 MG CAP PO ×3 (08:29→21:41)
[2021-06-13] MEDS: Ascorbic Acid 500 MG TAB PO ×2 (08:29→21:42)
[2021-06-13] MEDS: busPIRone 5 MG TAB 20 MG PO ×2 (08:30→21:42)
[2021-06-13] MEDS: Multivitamin w/Minerals TAB 1 TAB PO (08:30)
[2021-06-13] MEDS: amLODIPine 10 MG TAB PO (08:30)
[2021-06-13] MEDS: Apixaban 5 MG TAB PO ×2 (08:30→21:41)
[2021-06-13] MEDS: Ciprofloxacin 500 MG TAB PO ×2 (08:30→21:41)
[2021-06-13] MEDS: Cetirizine 10 MG TAB PO (08:30)
[2021-06-13] MEDS: Pantoprazole 40 MG TABCR PO (08:30)
[2021-06-13] MEDS: Normal Saline Flush 10 ML SYR IVP ×2 (10:42→21:43)
[2021-06-13] MEDS: HYDROmorphone 4 MG TAB PO (10:43)
--- NOTE | 2021-06-13 10:43 | CMPROGNOTE_ITS ---
- If Service Date Differs Date of service: 06/13/21 Time of Service: 10:43 Care Management Progress Note S/O:Favio remains in SB-1 status awaiting detention Medicaid approval. He spends his time watching videos on his tablet and communicating with friends and family. Every single day someone comes to visit. Both his parents and Nicki and her mother visit regularly as well as some of his friends. Recently Favio has seemed more stressed and has been short with staff, per CC. He verbalized to CM that he is both worried and excited about the upcoming visit to [facility] as a great deal depends on the outcome. He is also concerned about LTM approval/denial and about where he will go when he leaves [facility]. Yesterday he was offered a consult with the psychiatrist but he declined. He shared that he has his own therapist and has been working with her satisfactorily for some time. A: Favio is a 56 year old man admitted on 02/22/21 with constipation. Since then Favio alternated between acute stays and SB-1, never leaving the facility. On 05/26/21 he was transferred from SB1 to acute due to urosepsis and on 05/31/21 returned to SB-1. 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 Additional documents were submitted last week. He will follow up with his community providers and transport via ambulance. CM will continue to support Favio and his family and his discharge planning needs.
[2021-06-13] MEDS: Fluticasone NASAL SPRAY 16 GM BTL NS (11:00)
[2021-06-13 11:53] VITALS: O2SAT 98
[2021-06-13 15:45] VITALS: BP 126/79; PULSE 70; RESP 18; TEMP 37; O2SAT 97
[2021-06-13] MEDS: HYDROmorphone 2 MG/ML VIAL 1 MG IVP ×2 (16:43→21:43)
[2021-06-13] MEDS: Gabapentin 300 MG CAP 900 MG PO (21:41)
[2021-06-13] MEDS: diphenhydrAMINE 25 MG CAP 50 MG PO (21:42)
[2021-06-13] MEDS: Melatonin 3 MG TAB 9 MG PO (21:42)
[2021-06-13] MEDS: diazePAM 5 MG TAB 2.5 MG PO (21:43)
[2021-06-13 23:59] VITALS: BP 118/78; PULSE 78; RESP 17; TEMP 36.6; O2SAT 96
[2021-06-14] MEDS: Acetaminophen 500 MG TAB 1000 MG PO ×3 (06:03→22:14)
[2021-06-14] MEDS: Dronabinol 2.5 MG CAP PO ×2 (06:04→14:41)
[2021-06-14] MEDS: Methylphenidate 10 MG TAB PO ×2 (06:04→14:41)
[2021-06-14 08:06] VITALS: BP 128/53; PULSE 69; RESP 18; TEMP 36.5; O2SAT 96
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
[2021-06-14] MEDS: Polyethylene Glycol 3350 17 GM PACKET PO (08:55)
[2021-06-14] MEDS: Lidocaine 5% Patch 2 PATCH TP (08:55)
[2021-06-14] MEDS: Protein Nutritional Supplement 16 GM 1 OUNCE PACKET PO ×2 (08:55→22:13)
[2021-06-14] MEDS: Magnesium Chloride 64 MG TABCR PO ×2 (08:56→22:15)
[2021-06-14] MEDS: DULoxetine 30 MG CAP 90 MG PO (08:56)
[2021-06-14] MEDS: Senna TAB 2 TAB PO ×2 (08:56→22:15)
[2021-06-14] MEDS: busPIRone 5 MG TAB 20 MG PO ×2 (08:57→22:14)
[2021-06-14] MEDS: Pantoprazole 40 MG TABCR PO (08:57)
[2021-06-14] MEDS: Docusate Sodium 100 MG CAP PO ×3 (08:57→22:15)
[2021-06-14] MEDS: Gabapentin 300 MG CAP 600 MG PO ×3 (08:57→17:26)
[2021-06-14] MEDS: Cetirizine 10 MG TAB PO (08:58)
[2021-06-14] MEDS: Ascorbic Acid 500 MG TAB PO ×2 (08:58→22:15)
[2021-06-14] MEDS: Multivitamin w/Minerals TAB 1 TAB PO (08:58)
[2021-06-14] MEDS: Apixaban 5 MG TAB PO ×2 (08:59→22:14)
[2021-06-14] MEDS: amLODIPine 10 MG TAB PO (08:59)
[2021-06-14] MEDS: Ciprofloxacin 500 MG TAB PO ×2 (08:59→22:14)
[2021-06-14] MEDS: diazePAM 5 MG TAB PO ×3 (08:59→22:15)
[2021-06-14] MEDS: Fluticasone NASAL SPRAY 16 GM BTL NS (09:00)
[2021-06-14 11:10] VITALS: O2SAT 97
[2021-06-14] MEDS: Normal Saline Flush 10 ML SYR IVP ×2 (14:43→22:16)
--- NOTE | 2021-06-14 15:54 | CHAPLAIN ---
Favio was looking at photos of his new van. He seems to be very pleased with purchasing it. It's at his sister's now. It appears that two rows of seats are out to make room for his wheelchair. And there is ramp that goes down by pushing a button. Favio has several photos and is happy to show them. He continues to meet online with his therapist. They have been meeting for a while now and Favio is very comfortable with her.
[2021-06-14 16:35] VITALS: BP 116/70; PULSE 77; RESP 18; TEMP 37; O2SAT 94
[2021-06-14 22:12] VITALS: BP 115/72; PULSE 88; RESP 18; TEMP 36.6; O2SAT 96
[2021-06-14] MEDS: diazePAM 5 MG TAB 2.5 MG PO (22:13)
[2021-06-14] MEDS: Melatonin 3 MG TAB 9 MG PO (22:14)
[2021-06-14] MEDS: diphenhydrAMINE 25 MG CAP 50 MG PO (22:15)
[2021-06-14] MEDS: Gabapentin 300 MG CAP 900 MG PO (22:15)
[2021-06-14] MEDS: HYDROmorphone 2 MG/ML VIAL 1 MG IVP (22:17)
[2021-06-15] MEDS: Dronabinol 2.5 MG CAP PO ×2 (06:43→11:13)
[2021-06-15] MEDS: Methylphenidate 10 MG TAB PO ×2 (06:43→11:14)
[2021-06-15] MEDS: Acetaminophen 500 MG TAB 1000 MG PO ×3 (06:43→22:42)
[2021-06-15] MEDS: Pantoprazole 40 MG TABCR PO (06:43)
[2021-06-15 07:30] VITALS: BP 104/67; PULSE 65; RESP 18; TEMP 36.5; O2SAT 98
[2021-06-15] MEDS: Polyethylene Glycol 3350 17 GM PACKET PO (09:15)
[2021-06-15] MEDS: Lidocaine 5% Patch 2 PATCH TP (09:15)
[2021-06-15] MEDS: amLODIPine 10 MG TAB PO (09:16)
[2021-06-15] MEDS: diazePAM 5 MG TAB PO ×3 (09:16→22:41)
[2021-06-15] MEDS: Gabapentin 300 MG CAP 600 MG PO ×3 (09:17→17:35)
[2021-06-15] MEDS: Apixaban 5 MG TAB PO ×2 (09:17→22:42)
[2021-06-15] MEDS: DULoxetine 30 MG CAP 90 MG PO (09:17)
[2021-06-15] MEDS: Cetirizine 10 MG TAB PO (09:17)
[2021-06-15] MEDS: Multivitamin w/Minerals TAB 1 TAB PO (09:17)
[2021-06-15] MEDS: Magnesium Chloride 64 MG TABCR PO ×2 (09:17→22:42)
[2021-06-15] MEDS: Senna TAB 2 TAB PO ×2 (09:17→22:42)
[2021-06-15] MEDS: Docusate Sodium 100 MG CAP PO ×3 (09:17→22:41)
[2021-06-15] MEDS: busPIRone 5 MG TAB 20 MG PO ×2 (09:17→22:42)
[2021-06-15] MEDS: Protein Nutritional Supplement 16 GM 1 OUNCE PACKET PO ×2 (09:18→22:41)
[2021-06-15] MEDS: Normal Saline Flush 10 ML SYR IVP ×4 (09:18→23:32)
[2021-06-15] MEDS: Ascorbic Acid 500 MG TAB PO ×2 (09:18→22:41)
[2021-06-15] MEDS: Fluticasone NASAL SPRAY 16 GM BTL NS (09:53)
[2021-06-15] MEDS: Ciprofloxacin 500 MG TAB PO (11:11)
[2021-06-15] MEDS: ceFAZolin 2,000 MG in Normal Saline 100 ML 200 MG IVPB ×2 (12:41→20:33)
[2021-06-15] MEDS: Normal Saline 500 ML 30 ML IV (12:42)
[2021-06-15 15:30] VITALS: BP 134/72; PULSE 77; RESP 18; TEMP 37.1; O2SAT 97
[2021-06-15] MEDS: HYDROmorphone 2 MG/ML VIAL 1 MG IVP ×2 (17:35→22:43)
[2021-06-15 22:38] VITALS: BP 129/78; PULSE 81; RESP 18; TEMP 35.8; O2SAT 96
[2021-06-15] MEDS: Melatonin 3 MG TAB 9 MG PO (22:42)
[2021-06-15] MEDS: Gabapentin 300 MG CAP 900 MG PO (22:42)
[2021-06-15] MEDS: diphenhydrAMINE 25 MG CAP 50 MG PO (22:42)
[2021-06-15] MEDS: fentaNYL 75 MCG PATCH TD (22:43)
[2021-06-15] MEDS: diazePAM 5 MG TAB 2.5 MG PO (22:43)
[2021-06-16] MEDS: ceFAZolin 2,000 MG in Normal Saline 100 ML 200 MG IVPB (04:21)
[2021-06-16] MEDS: Dronabinol 2.5 MG CAP PO ×2 (06:32→11:20)
[2021-06-16] MEDS: Pantoprazole 40 MG TABCR PO (06:32)
[2021-06-16] MEDS: Methylphenidate 10 MG TAB PO ×2 (06:32→11:20)
[2021-06-16] MEDS: Acetaminophen 500 MG TAB 1000 MG PO ×3 (06:32→22:16)
[2021-06-16 06:34] VITALS: BP 115/69; PULSE 66; RESP 18; TEMP 35.6; O2SAT 97
[2021-06-16 08:50] VITALS: BP 138/81; PULSE 70; RESP 18; TEMP 36.8; O2SAT 97
[2021-06-16] MEDS: Protein Nutritional Supplement 16 GM 1 OUNCE PACKET PO ×2 (09:08→20:28)
[2021-06-16] MEDS: diazePAM 5 MG TAB PO ×3 (09:08→20:30)
[2021-06-16] MEDS: Ascorbic Acid 500 MG TAB PO ×2 (09:08→20:30)
[2021-06-16] MEDS: Fluticasone NASAL SPRAY 16 GM BTL NS (09:08)
[2021-06-16] MEDS: Polyethylene Glycol 3350 17 GM PACKET PO (09:08)
[2021-06-16] MEDS: amLODIPine 10 MG TAB PO (09:08)
[2021-06-16] MEDS: Gabapentin 300 MG CAP 600 MG PO ×3 (09:09→18:42)
[2021-06-16] MEDS: Docusate Sodium 100 MG CAP PO ×3 (09:09→20:30)
[2021-06-16] MEDS: Magnesium Chloride 64 MG TABCR PO ×2 (09:09→20:29)
[2021-06-16] MEDS: Apixaban 5 MG TAB PO ×2 (09:09→20:30)
[2021-06-16] MEDS: Multivitamin w/Minerals TAB 1 TAB PO (09:09)
[2021-06-16] MEDS: DULoxetine 30 MG CAP 90 MG PO (09:09)
[2021-06-16] MEDS: Cetirizine 10 MG TAB PO (09:09)
[2021-06-16] MEDS: busPIRone 5 MG TAB 20 MG PO ×2 (09:09→20:29)
[2021-06-16] MEDS: Normal Saline Flush 10 ML SYR IVP ×2 (09:10→20:29)
[2021-06-16] MEDS: Senna TAB 2 TAB PO ×2 (09:10→20:29)
[2021-06-16] MEDS: Magnesium Oxide 400 MG TAB 800 MG PO (11:20)
[2021-06-16 15:34] VITALS: BP 113/68; PULSE 65; RESP 18; TEMP 36.8; O2SAT 98
--- NOTE | 2021-06-16 16:46 | DI.RAD_ITS ---
Exam(s) XR PORTABLE CHEST AP EXAM: XR PORTABLE CHEST AP CLINICAL HISTORY: r/o infection. TECHNIQUE: 2D digital imaging was performed. COMPARISON: CR,XR XR PORTABLE CHEST AP from 05/26/2021 FINDINGS: Heart size is normal. The mediastinum is not widened. Fusion hardware in the cervical-upper thoracic region again noted. Also device now evident over the left chest wall obscuring visualization the left lower lobe. Visualized lung kothari appear unremarkable. No infiltrates nor pleural effusions. No pneumothorax IMPRESSION: No acute pulmonary findings on this single AP portable view of the chest.Please note that part of the left lower lobe is obscured by a battery containing device projected over the left side of the chest wall. DATA REPOSITORY: RADIATION DOSE DELIVERED: All CT scans at this facility use at least one of these dose optimization techniques: automated exposure control; mA and/or kV adjustment per patient size (includes targeted e xams where dose is matched to clinical indication); or iterative reconstruction.
--- NOTE | 2021-06-16 17:04 | DI.VRAD_ITS ---
PROCEDURE INFORMATION: Exam: XR Chest Exam date and time: 06/16/2021 4:26 PM Age: 56 years old Clinical indication: Other: R/O infection TECHNIQUE: Imaging protocol: XR of the chest. Views: 1 view. COMPARISON: CR XR PORTABLE CHEST AP 05/26/2021 8:15 AM FINDINGS: Tubes, catheters and devices: Device projects over the heart. Lungs: Unremarkable. No consolidation. Pleural spaces: Unremarkable. No pleural effusion. No pneumothorax. Heart/Mediastinum: Unremarkable. No cardiomegaly. Bones/joints: Unremarkable. IMPRESSION: No acute cardiopulmonary disease Dictated and Authenticated by: Armando Garcia MD. Ordering:DONNA Del Rio MD
[2021-06-16 18:38] LABS: Lactate 1.4 mmol/L (0.6-1.4)
[2021-06-16 18:43] LABS: Abs Immature Grans 0.02 10^3/uL (0.0-0.06); Absolute Basophil Count 0.03 10^3/uL (0.0-0.2); Absolute Eosinophil Count 0.32 10^3/uL (0.0-0.7); Absolute Monocyte Count 0.27 10^3/uL (0.1-0.8); Absolute Neutrophil Count 3.04 10^3/uL (1.2-6.7); Basophils % 0.6; Eosinophils % 6.2; HCT 35.7 % (40.0-50.0); HGB 11.3 g/dL (13.5-17.5); Immature Grans % 0.4; MCH 28.4 pg (27.0-33.0); MCHC 31.7 % (32.0-36.0); MCV 89.7 fL (80-95); MPV 10.3 fL (8.0-11.0); Monocytes % 5.2; Neutrophils % 58.6; Nucleated RBC 0 %; Platelet Count 232 10^3/uL (130-400); RBC 3.98 10^6/uL (4.36-5.78); RDW 14.6 % (11.8-14.1); WBC 5.18 10^3/uL (4.4-10.8)
[2021-06-16 18:50] LABS: Anion Gap 6.1 mmol/L (3-11); BUN 30 mg/dL (7-18); CO2 29.9 mmol/L (21.0-32.0); CREATININE 0.8 mg/dL (0.70-1.30); Calcium 11.2 mg/dL (8.5-10.1); Chloride 105 mmol/L (98-107); Glucose 154 mg/dL (74-106); Potassium 3.6 mmol/L (3.5-5.1); Sodium 141 mmol/L (136-145)
[2021-06-16 18:53] LABS: C-Reactive Protein 2.76 mg/dL (0.0-0.3)
[2021-06-16 18:56] LABS: ALT 104 U/L (16-63); AST 40 U/L (15-37); Albumin 3.2 g/dL (3.4-5.0); Alkaline Phosphatase 119 U/L (46-116); Bilirubin, Total 0.2 mg/dL (0.2-1.0); Total Protein 6.9 g/dL (6.4-8.2)
[2021-06-16 18:57] LABS: Bilirubin, Direct < 0.1 mg/dL (0.0-0.2)
[2021-06-16 19:12] LABS: Procalcitonin < 0.1 ng/mL
[2021-06-16 20:00] VITALS: BP 126/81; PULSE 91; RESP 16; TEMP 36; O2SAT 95
[2021-06-16] MEDS: Normal Saline 500 ML 30 ML IV (22:15)
[2021-06-16] MEDS: VANCOMYCIN 1,250 MG in Normal Saline 250 ML 250 MG IV (22:15)
[2021-06-16] MEDS: Gabapentin 300 MG CAP 900 MG PO (22:16)
[2021-06-16] MEDS: Melatonin 3 MG TAB 9 MG PO (22:16)
[2021-06-16] MEDS: diphenhydrAMINE 25 MG CAP 50 MG PO (22:16)
[2021-06-16] MEDS: HYDROmorphone 2 MG TAB PO (22:17)
[2021-06-16] MEDS: diazePAM 5 MG TAB 2.5 MG PO (22:17)
[2021-06-17 01:48] LABS: Bilirubin Negative (Negative); Blood Moderate (Negative); Clarity Cloudy (Clear); Glucose Negative (Negative); Ketones Negative (Negative); Leukocyte Esterase Large (Negative); Nitrite Negative (Negative); Urobilinogen 0.2 EU/dL (Up TO 0.2)
[2021-06-17 01:54] LABS: Bacteria Moderate HPF (Negative); C & S Indicated? Yes; Casts Negative LPF (Negative); Crystals Negative HPF (Negative); Epithelial Cells Rare HPF (Negative); Mucus Negative (Negative); WBC >50 HPF (0-5)
[2021-06-17] MEDS: Dronabinol 2.5 MG CAP PO ×2 (06:10→11:22)
[2021-06-17] MEDS: Acetaminophen 500 MG TAB 1000 MG PO ×3 (06:10→22:01)
[2021-06-17] MEDS: Methylphenidate 10 MG TAB PO ×2 (06:10→11:22)
--- NOTE | 2021-06-17 07:30 | DI.CT_ITS ---
Exam(s) CT ABDOMEN WO EXAM: CT ABDOMEN WO CLINICAL HISTORY: abd with bloating TECHNIQUE: COMPARISON: CT CT ABDOMEN PELVIS W from 03/30/2021 FINDINGS: It appears that this study is limited to the abdomen. Pelvis was apparently not scanned. Visualized lung bases reveal mild infiltrates in the posterior basal segment both lower lobes. Tiny amount of pleural fluid bilaterally. No large pleural effusions evident In the visualized abdomen there is no ascites in the upper quadrants. The stomach is somewhat disten ded and there is slight prominence of visualized bowel loops, with these bowel loops measuring up to 5 cm diameter. Difficult to assessed as the pelvis is not scanned. Liver: No obvious intrahepatic abnormalities evident on this noninfused study. Gallbladder/biliary: Gallbladder is contracted and somewhat blurred by motion artifact. No radiopaqu e calculi evident. No obvious CBD dilatation. Pancreas: Unremarkable. Spleen: Normal size. No obvious intrasplenic lesions. Adrenals: No significant masses. Kidneys: Tiny nonobstructive punctate calculi noted in both kidneys. Somewhat hyperdense urine noted in the upper ureters, bilaterally. Lower ureters are not included in the field of view of this stud y nor is the urinary bladder. Abdominal aorta: Calcified but not enlarged. Lymph nodes: There is no para-aortic adenopathy. No adenopathy around the aortic bifurcation. Osseous: No lytic osseous lesions identified in the field of view of this study. IMPRESSION: 1. This study is limited by fact that the pelvis was not included and therefore is difficult to evalu ate the somewhat prominent bowel loop diameters without the benefit of continuity. 2. Tiny nonobstructive punctate calculi noted in both kidneys. Also hyperdense urine in the nondilat ed upper ureters, bilaterally. Lower ureters are not included in the field of view of this study nor is the urinary bladder. 3. Small infiltrates in both lung bases, specifically in the posterior basal segments of both lower lobes.
--- NOTE | 2021-06-17 07:30 | DI.CT_ITS ---
Exam(s) CT HEAD WO EXAM: CT HEAD WO in CLINICAL HISTORY: confusion intermittent. TECHNIQUE: Imaging Protocol: Axial computed tomography images with coronal and sagittal reformatted images were created and reviewed COMPARISON: CT CT HEAD WO from 05/31/2021 FINDINGS: There are no skull fractures nor fluid in the visualized paranasal sinuses. There is no evidence of intracranial hemorrhage, mass effect, or shift of midline structures. There are no extra-axial fluid collections. The ventricles are not enlarged or shifted and there is no blo od within the ventricular system nor within the basal cisterns. IMPRESSION: No acute intracranial findings on this noninfused CT scan of the brain. RADIATION DOSE DELIVERED: 837.94mGy.cm Total DLP DATA REPOSITORY: All CT scans at this facility are submitted to the National Radiology Data Registry (NRDR) Dose Index Registry (DIR) with the [employer] (ACR). RADIATION OPTIMIZATION: All CT scans at this facility use at least one of these dose optimization te chniques: automated exposure control; mA and/or kV adjustment per patient size (includes targeted exa ms where dose is matched to clinical indication); or iterative reconstruction.
[2021-06-17 08:05] LABS: Anion Gap 5.8 mmol/L (3-11); BUN 29 mg/dL (7-18); CO2 28.2 mmol/L (21.0-32.0); CREATININE 0.5 mg/dL (0.70-1.30); Calcium 11.3 mg/dL (8.5-10.1); Chloride 108 mmol/L (98-107); Glucose 106 mg/dL (74-106); Magnesium 1.8 mg/dL (1.8-2.4); Potassium 4.1 mmol/L (3.5-5.1); Sodium 142 mmol/L (136-145)
--- NOTE | 2021-06-17 08:06 | PGE_ITS ---
Date of Service Date of service: 06/16/21 Time of Service: 18:00 Assessment and Plan Assessment and plan (1) Acute osteomyelitis of sacrum: Start date: 06/17/21 Start time: 14:24 Status: Chronic Assessment and plan: Suspecting osteo. MRI to r/o Would like to be vigilant about not placing Favio on antibiotics unless necessary due to resistance. He has become resistant to Cipro therefore more vigilance will be used as this will be a never ending process until he has wound closure (2) Major depressive disorder: Start date: 06/17/21 Start time: 14:27 Status: Chronic Assessment and plan: Good spirits. Sleeping well Qualifiers: Major depression recurrence: single episode Active/Remission status: currently active Major depression episode severity: moderate Qualified Code(s): F32.1 - Major depressive disorder, single episode, moderate (3) Neurogenic bladder: Start date: 06/17/21 Start time: 14:27 Status: Chronic Assessment and plan: on 05/26 suprapubic changed by myself due to urosepsis, see h/p Per Dr. Molina we will need monthly changes, I am more than happy to change them if Dr. Molina is unavailable. Concern for UTI u/a ordered moderate amount leuk est waiting for urine cx. Afebrile will wait to treat due to above (4) Quadriplegia: Start date: 06/17/21 Start time: 14:35 Status: Chronic Assessment and plan: cont OT/. P.T. to work with patient He is able to move his middle finger on his right hand slightly which is new for him He has appt with [facility] on June 18 for paralysis center to determine if surgery is an option (5) Hx of caloric malnutrition: Start date: 06/17/21 Start time: 14:35 Status: Resolved Assessment and plan: continue marinol with ritilan this has improved his appetite and have nutrition continue to follow him (6) DVT (deep venous thrombosis): Start date: 06/17/21 Start time: 14:35 Status: Chronic Assessment and plan: Recent u/s reveals DVT still in place continue eliquis Qualifiers: DVT location: lower extremity Affected thrombotic vein of extremity: femoral Chronicity: acute Laterality: right Qualified Code(s): I82.411 - Acute embolism and thrombosis of right femoral vein (7) Discharge planning issues: Start date: 06/17/21 Start time: 14:36 Status: Acute Assessment and plan: LTC facility would be most appropriate however he has been turned down by multiple facilities, citing too high acuity for them. Annette from continues to work on this, THANK YOU Annette. discussed with Dr Olson Subjective Subjective Patient reports: other Interval history since last seen: Favio is c/o having chills, Nicki is concerned because he has been more confused over last three days he also states having some dreamy state hallucinations. He does appears slightly ashen could be due to chills. Will order blood work and MRI of sacrum to r/o osteo. Will also order CT head and abd. Lactate, normal, lab work unremarkable. He does have moderate amount leuk est in his urine. Urine cx pending, blood cx pending. MRI ordered for tomorrow. Will follow up and make acute if needs to be necessary. At this time though nothing in the labs are revealing, except possible UTI. Will place on vanco for possible osteo Exam Narrative Exam Narrative: General: cooperative, comfortable, no acute distress, frail appearing and ill appearing chronically, more ashen then normal Nutritional Appearance: thin Orientation: alert, awake and oriented x3 Eyes Sclera: sclerae normal Resp Effort & Inspection: normal respiratory effort Cardio Rate: regular rate Rhythm: regular rhythm GI Inspection: larger than normal though appetite has increased (colostomy functioning) Palpation: soft General: other (suprapubic cath draining well.) Skin Lesions: other (wounds not seen today) Neuro General: patient alert, patient awake and patient oriented x3 Extrem General: abnormal to inspection (flacid lower, contracted hands. ) Psych Mental Status: mental status grossly normal Speech and Movement: other (quadrapeligic) Mood: congruent mood Affect: normal affect Objective Last Vital Signs Temp 36.0 C L 06/16/21 20:00 Pulse 91 H 06/16/21 20:00 Resp 16 06/16/21 20:00 BP 126/81 06/16/21 20:00 Pulse Ox 95 06/16/21 20:00 Laboratory Results - last 24 hr 06/16/21 06/16/21 06/16/21 17:18 17:18 17:18 WBC 5.18 RBC 3.98 L Hgb 11.3 L Hct 35.7 L MCV 89.7 MCH 28.4 MCHC 31.7 L RDW 14.6 H Plt Count 232 MPV 10.3 Immature Gran % 0.4 Neutrophils % 58.6 Lymphocytes % 29.0 Monocytes % 5.2 Eosinophils % 6.2 Basophils % 0.6 Nucleated RBC % 0 Absolute Neutrophils 3.04 Absolute Lymphocytes 1.50 Absolute Monocytes 0.27 Absolute Eosinophils 0.32 Absolute Basophils 0.03 VBG Lactate Sodium 141 Potassium 3.6 Chloride 105 Carbon Dioxide 29.9 Anion Gap 6.1 BUN 30 H Creatinine 0.8 Estimated GFR/1.73 m2 >= 60.00 Glucose 154 H Calcium 11.2 H Total Bilirubin Conjugated Bilirubin AST ALT Alkaline Phosphatase C-Reactive Protein 2.76 H Total Protein Albumin Procalcitonin Urine Color Urine Clarity Urine pH Ur Specific [place] Urine Protein Urine Ketones Urine Blood Urine Nitrite Urine Bilirubin Urine Urobilinogen Ur Leukocyte Esterase Urine RBC Urine WBC Ur Epithelial Cells Urine Crystals Urine Bacteria Urine Casts Urine Mucus Ur Culture Indicated? Urine Glucose 06/16/21 06/16/21 06/16/21 17:18 17:18 17:18 WBC RBC Hgb Hct MCV MCH MCHC RDW Plt Count MPV Immature Gran % Neutrophils % Lymphocytes % Monocytes % Eosinophils % Basophils % Nucleated RBC % Absolute Neutrophils Absolute Lymphocytes Absolute Monocytes Absolute Eosinophils Absolute Basophils VBG Lactate 1.4 Sodium Potassium Chloride Carbon Dioxide Anion Gap BUN Creatinine Estimated GFR/1.73 m2 Glucose Calcium Total Bilirubin 0.2 Conjugated Bilirubin < 0.1 AST 40 H ALT 104 H Alkaline Phosphatase 119 H C-Reactive Protein Total Protein 6.9 Albumin 3.2 L Procalcitonin < 0.1 Urine Color Urine Clarity Urine pH Ur Specific [place] Urine Protein Urine Ketones Urine Blood Urine Nitrite Urine Bilirubin Urine Urobilinogen Ur Leukocyte Esterase Urine RBC Urine WBC Ur Epithelial Cells Urine Crystals Urine Bacteria Urine Casts Urine Mucus Ur Culture Indicated? Urine Glucose 06/17/21 01:40 WBC RBC Hgb Hct MCV MCH MCHC RDW Plt Count MPV Immature Gran % Neutrophils % Lymphocytes % Monocytes % Eosinophils % Basophils % Nucleated RBC % Absolute Neutrophils Absolute Lymphocytes Absolute Monocytes Absolute Eosinophils Absolute Basophils VBG Lactate Sodium Potassium Chloride Carbon Dioxide Anion Gap BUN Creatinine Estimated GFR/1.73 m2 Glucose Calcium Total Bilirubin Conjugated Bilirubin AST ALT Alkaline Phosphatase C-Reactive Protein Total Protein Albumin Procalcitonin Urine Color Yellow Urine Clarity Cloudy Urine pH 6.0 Ur Specific [place] 1.020 Urine Protein 30 H Urine Ketones Negative Urine Blood Moderate H Urine Nitrite Negative Urine Bilirubin Negative Urine Urobilinogen 0.2 Ur Leukocyte Esterase Large H Urine RBC 10-20 H Urine WBC >50 H Ur Epithelial Cells Rare Urine Crystals Negative Urine Bacteria Moderate Urine Casts Negative Urine Mucus Negative Ur Culture Indicated? Yes Urine Glucose Negative
[2021-06-17 08:18] VITALS: BP 110/60; PULSE 61; RESP 18; TEMP 37; O2SAT 97
[2021-06-17] MEDS: Lidocaine 5% Patch 2 PATCH TP ×2 (08:48→16:15)
[2021-06-17] MEDS: Docusate Sodium 100 MG CAP PO ×3 (08:48→20:10)
[2021-06-17] MEDS: Polyethylene Glycol 3350 17 GM PACKET PO (08:48)
[2021-06-17] MEDS: Protein Nutritional Supplement 16 GM 1 OUNCE PACKET PO ×2 (08:48→20:09)
[2021-06-17] MEDS: DULoxetine 30 MG CAP 90 MG PO (08:49)
[2021-06-17] MEDS: Ascorbic Acid 500 MG TAB PO ×2 (08:49→20:10)
[2021-06-17] MEDS: Senna TAB 2 TAB PO ×2 (08:50→20:10)
[2021-06-17] MEDS: Apixaban 5 MG TAB PO ×2 (08:50→20:10)
[2021-06-17] MEDS: Gabapentin 300 MG CAP 600 MG PO ×3 (08:50→18:04)
[2021-06-17] MEDS: Cetirizine 10 MG TAB PO (08:50)
[2021-06-17] MEDS: Multivitamin w/Minerals TAB 1 TAB PO (08:50)
[2021-06-17] MEDS: diazePAM 5 MG TAB PO ×3 (08:51→20:10)
[2021-06-17] MEDS: busPIRone 5 MG TAB 20 MG PO ×2 (08:51→20:10)
[2021-06-17] MEDS: Magnesium Chloride 64 MG TABCR PO ×2 (08:51→20:09)
[2021-06-17] MEDS: Pantoprazole 40 MG TABCR PO (08:51)
[2021-06-17] MEDS: Normal Saline Flush 10 ML SYR IVP ×2 (08:52→18:23)
[2021-06-17] MEDS: Fluticasone NASAL SPRAY 16 GM BTL NS (09:10)
[2021-06-17] MEDS: VANCOMYCIN/WATER (PEG) 1.25 GM/250 ML BAG IV ×2 (09:53→22:01)
[2021-06-17] MEDS: Gadoterate meglumine 20 ML VIAL 17 ML IVP (13:56)
--- NOTE | 2021-06-17 14:05 | DI.MRI_ITS ---
Exam(s) MR PELVIS WO/W EXAM: MR PELVIS WO/W CLINICAL HISTORY: r/o osteo of ischial tuberosity COMPARISON: MR MR PELVIS WO/W from 03/18/2021 TECHNIQUE: MULTISEQUENCE MRI SCAN OF THE PELVIS WAS PERFORMED. BOTH NON FUSED AND INFUSED SEQUENCES WERE PERFORMED. CONTRAST INJECTED WAS 17 ML DOTAREM. FINDINGS: OSSEOUS: There are bilateral decubitus ulcers. There is subjacent intraosseous signal abnormality in both ischial tuberosities. On the noncontrast T1 weighted images there is confluent T1 hypointense signal which is highly specific for osteomyelitis. Also increased intraosseous signal on T2 imaging a t these levels both ischial tuberosities noted. There is no distinct cortical ghosting evident.. No o ther areas of intraosseous signal abnormality. No abnormal intraosseous signal in the hips. No hip joint effusions. No avascular necrosis of the hip s evident.. SOFT TISSUES: Some increased signal is noted in both obturator internus muscles. Also symmetrical inc reased signal in the gluteus musculature bilaterally. No distinct fluid collection. INTRAPELVIC: Prostate gland is not enlarged. Seminal vesicles normal size. There is a suprapubic perc utaneous catheter in the urinary bladder. Balloon diameter for this catheter is 2.5 cm. IMPRESSION: Bilateral decubitus ulcers and findings consistent with osteomyelitis of both ischial tuberosities. DATA REPOSITORY:
[2021-06-17] MEDS: HYDROmorphone 2 MG/ML VIAL 0.5 MG IVP (14:23)
--- NOTE | 2021-06-17 14:41 | NUR.NOTE ---
Fentanyl patch and 2 lidocaine patches removed down in MRI suite for MRI testing. Patches put into bag and to be disposed of with nurse witness. Nursing Note:
--- NOTE | 2021-06-17 15:23 | CHAPLAIN ---
I caught up with Favio while he was outside with staff. His mom was with him too. Favio's disappointed that his appointment at [facility] tomorrow has been postponed until Jul.09. He talked with his nurses about practicing things he wants to do when he is discharged, like hunting, operating a gun and chainsaw.
[2021-06-17 15:44] VITALS: BP 125/72; PULSE 83; RESP 18; TEMP 37.1; O2SAT 95
[2021-06-17] MEDS: fentaNYL 75 MCG PATCH TD (16:15)
[2021-06-17] MEDS: cefTRIAXone 2 GM/50 ML BAG IVPB (18:22)
--- NOTE | 2021-06-17 18:34 | PGE_ITS ---
Date of Service Date of service: 06/17/21 Time of Service: 18:35 Subjective Subjective Interval history since last seen: MRI revealed Bilateral decubitus ulcers and findings consistent with osteomyelitis of both ischial tuberosities. Also concern for UTI, will place on vanco and ancef. He will need 6 weeks of vanco and ancef due to new bilateral osteo of both ischial tuberosities Objective Last Vital Signs Temp 37.1 C 06/17/21 15:44 Pulse 83 06/17/21 15:44 Resp 18 06/17/21 15:44 BP 125/72 06/17/21 15:44 Pulse Ox 95 06/17/21 15:44 Laboratory Results - last 24 hr 06/16/21 06/16/21 06/16/21 17:18 17:18 17:18 WBC 5.18 RBC 3.98 L Hgb 11.3 L Hct 35.7 L MCV 89.7 MCH 28.4 MCHC 31.7 L RDW 14.6 H Plt Count 232 MPV 10.3 Immature Gran % 0.4 Neutrophils % 58.6 Lymphocytes % 29.0 Monocytes % 5.2 Eosinophils % 6.2 Basophils % 0.6 Nucleated RBC % 0 Absolute Neutrophils 3.04 Absolute Lymphocytes 1.50 Absolute Monocytes 0.27 Absolute Eosinophils 0.32 Absolute Basophils 0.03 VBG Lactate Sodium 141 Potassium 3.6 Chloride 105 Carbon Dioxide 29.9 Anion Gap 6.1 BUN 30 H Creatinine 0.8 Estimated GFR/1.73 m2 >= 60.00 Glucose 154 H Calcium 11.2 H Magnesium Total Bilirubin Conjugated Bilirubin AST ALT Alkaline Phosphatase C-Reactive Protein 2.76 H Total Protein Albumin Procalcitonin Urine Color Urine Clarity Urine pH Ur Specific [place] Urine Protein Urine Ketones Urine Blood Urine Nitrite Urine Bilirubin Urine Urobilinogen Ur Leukocyte Esterase Urine RBC Urine WBC Ur Epithelial Cells Urine Crystals Urine Bacteria Urine Casts Urine Mucus Ur Culture Indicated? Urine Glucose 06/16/21 06/16/21 06/16/21 17:18 17:18 17:18 WBC RBC Hgb Hct MCV MCH MCHC RDW Plt Count MPV Immature Gran % Neutrophils % Lymphocytes % Monocytes % Eosinophils % Basophils % Nucleated RBC % Absolute Neutrophils Absolute Lymphocytes Absolute Monocytes Absolute Eosinophils Absolute Basophils VBG Lactate 1.4 Sodium Potassium Chloride Carbon Dioxide Anion Gap BUN Creatinine Estimated GFR/1.73 m2 Glucose Calcium Magnesium Total Bilirubin 0.2 Conjugated Bilirubin < 0.1 AST 40 H ALT 104 H Alkaline Phosphatase 119 H C-Reactive Protein Total Protein 6.9 Albumin 3.2 L Procalcitonin < 0.1 Urine Color Urine Clarity Urine pH Ur Specific [place] Urine Protein Urine Ketones Urine Blood Urine Nitrite Urine Bilirubin Urine Urobilinogen Ur Leukocyte Esterase Urine RBC Urine WBC Ur Epithelial Cells Urine Crystals Urine Bacteria Urine Casts Urine Mucus Ur Culture Indicated? Urine Glucose 06/17/21 06/17/21 01:40 07:44 WBC RBC Hgb Hct MCV MCH MCHC RDW Plt Count MPV Immature Gran % Neutrophils % Lymphocytes % Monocytes % Eosinophils % Basophils % Nucleated RBC % Absolute Neutrophils Absolute Lymphocytes Absolute Monocytes Absolute Eosinophils Absolute Basophils VBG Lactate Sodium 142 Potassium 4.1 Chloride 108 H Carbon Dioxide 28.2 Anion Gap 5.8 BUN 29 H Creatinine 0.5 L D Estimated GFR/1.73 m2 >= 60.00 Glucose 106 Calcium 11.3 H Magnesium 1.8 Total Bilirubin Conjugated Bilirubin AST ALT Alkaline Phosphatase C-Reactive Protein Total Protein Albumin Procalcitonin Urine Color Yellow Urine Clarity Cloudy Urine pH 6.0 Ur Specific [place] 1.020 Urine Protein 30 H Urine Ketones Negative Urine Blood Moderate H Urine Nitrite Negative Urine Bilirubin Negative Urine Urobilinogen 0.2 Ur Leukocyte Esterase Large H Urine RBC 10-20 H Urine WBC >50 H Ur Epithelial Cells Rare Urine Crystals Negative Urine Bacteria Moderate Urine Casts Negative Urine Mucus Negative Ur Culture Indicated? Yes Urine Glucose Negative
[2021-06-17] MEDS: ceFAZolin 2,000 MG in Normal Saline 100 ML 200 MG IVPB (20:08)
[2021-06-17] MEDS: Gabapentin 300 MG CAP 900 MG PO (22:01)
[2021-06-17] MEDS: diphenhydrAMINE 25 MG CAP 50 MG PO (22:01)
[2021-06-17] MEDS: Melatonin 3 MG TAB 9 MG PO (22:02)
[2021-06-17] MEDS: diazePAM 5 MG TAB 2.5 MG PO (22:02)
[2021-06-17] MEDS: HYDROmorphone 2 MG TAB PO (22:02)
[2021-06-17 23:33] VITALS: BP 124/72; PULSE 82; RESP 16; TEMP 37; O2SAT 96
[2021-06-18] MEDS: ceFAZolin 2,000 MG in Normal Saline 100 ML 200 MG IVPB (03:33)
[2021-06-18] MEDS: Normal Saline Flush 10 ML SYR IVP ×4 (03:34→21:02)
[2021-06-18] MEDS: Acetaminophen 500 MG TAB 1000 MG PO ×3 (06:06→21:03)
[2021-06-18] MEDS: Dronabinol 2.5 MG CAP PO ×2 (06:06→11:20)
[2021-06-18] MEDS: Methylphenidate 10 MG TAB PO ×2 (06:07→11:21)
--- NOTE | 2021-06-18 07:10 | OT.INDS ---
Date of service: 06/18/21 Time of Service: 07:10
[2021-06-18 08:04] VITALS: BP 120/80; PULSE 67; RESP 19; TEMP 36.6; O2SAT 94
--- NOTE | 2021-06-18 08:18 | OT.INTREAT ---
Date of service: 06/18/21 Time of Service: 08:00 Occupational Therapy Notes Occupational Therapy Inpatient Treatment Note Date: 06/18/21 PRECAUTIONS: Fall, standard, DNR/DNI SUBJECTIVE: Pt was sitting in his bed when OT arrived. He is depressed today, he states that there is another infection, that his appt was re-scheduled and that he just is not feeling up to much. OBJECTIVE: PAIN:c/o pain in (B) UE (L) > (R) Manual Therapy [id number]: OT performed joint blocking techniques, manual mobilization to pts (B) UE with PROM to pts wrists, forearms, elbows and digits. Functionally pt performed this with increased (I) with his grasp and release but was sore in his (B) elbows due to dressing routine yesterday with OT. OT performed AA ROM with tone reduction techniques needed in his (L) UE which he tolerated well. Pt has increased stiffness, he does not take this well in his current state of mind, however this is not abnormal as he is cold and his muscles are hector. His digits are functionally able to flex and extend and overall minimal pain throughout. OT will continue to monitor pts response to todays session and progress accordingly. OT recommends the following for when pt discharges: 1. Hospital bed with alternating pressure for increased care of pts wounds and medically necessary due to pts decreased functional mobility and high risk of wounds. 2. A christa lift for transportation to and from bed to wheelchair etc.. to increase pts safety and pressure relief on his body during transfers. 3. His electric wheelchair transferred from [facility]- pt reports that he has an electric wheelchair at the facility and they are waiting for him to return home to get this delivered. 4. [place] cuff- this adaptive equipment will be utilized to maximize pts functional (I) in his ADL/IADL routines but supporting his decreased hand function and control 5. OT recommends that pt has HH OT/PT as well as a caregiver 24 hours/day given his high needs and inability to cook, clean and take care of his toileting routines. Pt will also need (A) with functional mobility and will be unable to perform this without (A). 6. Plate scoop- to increased pts functional (I) with his eating routine. 7. Caregiver training for ADLs and (A) with ADL routines 8. Ramp to get in and out of residence TREATMENT CODES/TIME: 65856, 15 minutes (08:00) Michelle Pearce, OTR/L [facility]
[2021-06-18] MEDS: DULoxetine 30 MG CAP 90 MG PO (08:46)
[2021-06-18] MEDS: Multivitamin w/Minerals TAB 1 TAB PO (08:47)
[2021-06-18] MEDS: Magnesium Chloride 64 MG TABCR PO ×2 (08:47→21:04)
[2021-06-18] MEDS: Senna TAB 2 TAB PO ×2 (08:47→21:04)
[2021-06-18] MEDS: Pantoprazole 40 MG TABCR PO (08:48)
[2021-06-18] MEDS: Ascorbic Acid 500 MG TAB PO ×2 (08:48→21:04)
[2021-06-18] MEDS: busPIRone 5 MG TAB 20 MG PO ×2 (08:48→21:04)
[2021-06-18] MEDS: Gabapentin 300 MG CAP 600 MG PO ×3 (08:48→18:21)
[2021-06-18] MEDS: Apixaban 5 MG TAB PO ×2 (08:48→21:04)
[2021-06-18] MEDS: Docusate Sodium 100 MG CAP PO ×3 (08:49→21:04)
[2021-06-18] MEDS: diazePAM 5 MG TAB PO ×3 (08:49→21:04)
[2021-06-18] MEDS: Protein Nutritional Supplement 16 GM 1 OUNCE PACKET PO ×2 (08:49→21:02)
[2021-06-18] MEDS: Cetirizine 10 MG TAB PO (08:49)
[2021-06-18] MEDS: Lidocaine 5% Patch 2 PATCH TP (08:50)
--- NOTE | 2021-06-18 09:23 | CMPROGNOTE_ITS ---
- If Service Date Differs Date of service: 06/18/21 Time of Service: 09:23 Care Management Progress Note S/O:Favio remains in SB-1 status awaiting long-term Medicaid approval. He was lying in bed visiting with his mother when CM met with him. Favio appeared very subdued today. When asked how he was he responded with a very unconvincing alright. He avoided eye contact and did not initiate any conversation. Favio was told by the provider Magi yesterday that he now has bilateral osteomyelitis in his ischial tuberosities and that his decubitus ulcers are larger than before. They have been steadily healing and reducing in size until the Vancomycin was discontinue 2 weeks ago. The provider has verbalized that she feels this is due to the discontinuation of the vancomycin. Favio was also told yesterday that his appointment at [facility] with the paralysis landing support specialist has been postpone until July 09, 2021 at 1pm. Favio expressed disappointment and frustration with this news. A: Favio is a 56 year old man admitted on 02/22/21 with constipation. Since then Favio alternated between acute stays and SB-1, never leaving the facility. On 05/26/21 he was transferred from SB1 to acute due to urosepsis and on 05/31/21 returned to SB-1. 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 Additional documents were submitted last week. He will follow up with his community providers and transport via ambulance. CM will continue to support Favio and his family and his discharge planning needs.
[2021-06-18] MEDS: Fluticasone NASAL SPRAY 16 GM BTL NS (09:32)
[2021-06-18] MEDS: cefTRIAXone 2 GM/50 ML BAG IVPB (09:32)
[2021-06-18] MEDS: Polyethylene Glycol 3350 17 GM PACKET PO (09:32)
[2021-06-18 09:43] LABS: Vancomycin, Trough 15.8 ug/mL (10.0-20.0)
[2021-06-18] MEDS: HYDROmorphone 4 MG TAB PO (10:40)
[2021-06-18] MEDS: VANCOMYCIN/WATER (PEG) 1.25 GM/250 ML BAG IV ×2 (10:41→21:04)
[2021-06-18] MEDS: HYDROmorphone 2 MG/ML VIAL 0.5 MG IVP (14:27)
[2021-06-18 16:52] VITALS: BP 110/67; PULSE 67; RESP 18; TEMP 35.5; O2SAT 95
--- NOTE | 2021-06-18 18:01 | WOUNDCONS ---
- If Service Date Differs Date of service: 06/18/21 Time of Service: 18:01 Wound Initial Evaluation Narrative: Mr. Velasquez seen for weekly re-evaluation and photos. Gives verbal consent. See Photos below. Pt had increased size of wounds, see chart for specific measurements, over the last 2 week period. Provider suspected possible return/reoccurrence of osteomyelitis. MRI was ordered and BILATERAL ISCHIAL TUBEROSITY OSTEOMYELITIS was confirmed. Per provider notes pt will need additional 6 weeks of Vancomycin. Decrease in wound size with just 2 days of antibiotics and wound vac's running. Per Favio he is eating well. Per documentation he has been eating 75-100% of his meals. Pt reports making good choices for meals with dietary team. Pt's calorie and protein demand high d/t wounds. Request nutrition continues to follow Pt to ensure adequate protein and calorie goals. Pt educated on importance of continuing to eat his meals to reach protein and calorie goal for wound healing. Arjo bed continues to be rounded on each shift. Alternating air setting is on @ this time. Issues with bed reported by nursing last week, bed reportedly switched out. Pt report's that Physical therapy has not been working with him for a while. Notes show they have discharged him from their services. Favio reports he has not been up in the chair recently. RIGHT Ischial tuberosity- 2cm tunnel noted @ 5 o'clock. and 2.5 cm tunnel noted from 12-2 o'clock. wound measure 1.1x1.5x1.5 LEFT SIDE- . 2 cm undermining noted from 6-9 o'clock. wound measures 2x1.3x1.4 Due to size of wounds and length of time using current treatment method (wound vacs), recommend changing treatment at this time to see if wounds benefit. Recommend Aquacell Ag rope placed into wound 3x/weekly. Monitor Pt closely for deterioration of wounds/serge wound skin and increase in size of wounds. Pt has had DTI on Right lateral foot, skin peeled away over weekend and reveled area of eschar with pink blanchable tissue surrounding. no drainage noted. Hydrocolloid dressing ordered for Pt. Recommend continuing @ this time. Monitor closely. Pt has abdominal wound, SCOOTER dressing Placed on Saturday 06/16, not removed for photos or measurements. will continue to monitor. - Wound left ischial tuberosity Wound Length: 2 cm Wound Width: 1.3 cm Wound Depth: 1.4 cm Wound Drainage Amount: None right ichial tuberosity Wound Length: 1.1 cm Wound Width: 1.5 cm Wound Depth: 1.5 cm Wound Drainage Amount: None Right lateral foot Wound Type: Deep Tissue Injury (DTI) Wound Length: 0.5 cm Wound Width: 0.9 cm Wound Depth: 0.1 cm Wound Drainage Amount: None - Recomendation Recomendation:: Cleanse Bilateral Ischial Tuberosity wounds with Skintegrity wound cleanser and sterile gauze. Pat dry. Apply skin prep to periwound skin. Place Aquacell Ag rope into wound using cotton tip applicator, ensuring contact with tunneled areas, accordion into wound. Fill in wound 80% of the way with rope, DO NOT PACK TOO TIGHT (rope will expand with moisture). Using Sterile Saline squirt in 1-2 CC's (to moisten Aquacell) Cover with Mepilex. Change TUESDAYS, THURSDAYS, and SATURDAYS and PRN. When SCOOTER dressing on PT's abdomen is no longer functioning or on 06/23, whichever is first, DO NOT apply another SCOOTER dressing to Pt. d/c SCOOTER and Apply Mepilex AG to Pt's abdominal wound. Change Q3days and PRN. Physcian/Nurse Practioner Notified: Yes (Eliane Tolliver)
[2021-06-18] MEDS: diazePAM 5 MG TAB 2.5 MG PO (21:02)
[2021-06-18] MEDS: Melatonin 3 MG TAB 9 MG PO (21:03)
[2021-06-18] MEDS: Gabapentin 300 MG CAP 900 MG PO (21:03)
[2021-06-18] MEDS: HYDROmorphone 2 MG TAB PO (21:04)
[2021-06-18] MEDS: diphenhydrAMINE 25 MG CAP 50 MG PO (21:04)
[2021-06-19] VITALS: BP 129/76; PULSE 72; RESP 17; TEMP 36.7; O2SAT 96
[2021-06-19] MEDS: Dronabinol 2.5 MG CAP PO ×2 (06:27→11:32)
[2021-06-19] MEDS: Pantoprazole 40 MG TABCR PO (06:28)
[2021-06-19] MEDS: Acetaminophen 500 MG TAB 1000 MG PO ×3 (06:28→21:24)
[2021-06-19] MEDS: Methylphenidate 10 MG TAB PO ×2 (06:28→11:33)
[2021-06-19] MEDS: cefTRIAXone 2 GM/50 ML BAG IVPB (07:49)
--- NOTE | 2021-06-19 09:39 | OT.INTREAT ---
Date of service: 06/19/21 Time of Service: 09:39 Occupational Therapy Notes Occupational Therapy Inpatient Treatment Note Date: 06/19/21 PRECAUTIONS: fall, standard, DNR/DNI SUBJECTIVE: Pt was sitting in bed when OT arrived, he was eating with RN and his demeanor is happier today. OBJECTIVE: PAIN:c/o pain in (B) shoulders better than prior EATING: Sitting in bed pt requires max (A) with donning utensils on his (R) hand but is (I) with stabbing in his food, bringing to his mouth. He requires max (A) Set up for placement of plate and cutting of his food. Functionally he is making increased gains and OT modified his spoon due to the angle of his arm which provided pt with increased (I). During eating routine pt was using (B) hand use with (R) UE for feeding and (L) for stabilization and support. ASSESSMENT/PLAN: Pt is tolerating his eating routines well, he is managing increased (I) in his (B) UE and he is receptive to increasing his (I). TREATMENT CODES/TIME: [id number], 30 minutes (08:30) Michelle Pearce, OTR/L [facility]
[2021-06-19] MEDS: Polyethylene Glycol 3350 17 GM PACKET PO (09:43)
[2021-06-19] MEDS: Protein Nutritional Supplement 16 GM 1 OUNCE PACKET PO ×2 (09:45→21:23)
[2021-06-19] MEDS: Lidocaine 5% Patch 2 PATCH TP (09:46)
[2021-06-19] MEDS: DULoxetine 30 MG CAP 90 MG PO (09:48)
[2021-06-19] MEDS: Gabapentin 300 MG CAP 600 MG PO ×3 (09:48→17:54)
[2021-06-19] MEDS: Apixaban 5 MG TAB PO ×2 (09:48→21:26)
[2021-06-19] MEDS: diazePAM 5 MG TAB PO ×3 (09:48→21:25)
[2021-06-19] MEDS: Senna TAB 2 TAB PO ×2 (09:48→21:25)
[2021-06-19] MEDS: Ascorbic Acid 500 MG TAB PO ×2 (09:48→21:25)
[2021-06-19] MEDS: Cetirizine 10 MG TAB PO (09:48)
[2021-06-19] MEDS: Magnesium Chloride 64 MG TABCR PO ×2 (09:48→21:25)
[2021-06-19] MEDS: Docusate Sodium 100 MG CAP PO ×3 (09:48→21:25)
[2021-06-19] MEDS: Multivitamin w/Minerals TAB 1 TAB PO (09:49)
[2021-06-19] MEDS: busPIRone 5 MG TAB 20 MG PO ×2 (09:49→21:24)
[2021-06-19] MEDS: Normal Saline Flush 10 ML SYR IVP ×2 (09:50→21:27)
[2021-06-19] MEDS: Fluticasone NASAL SPRAY 16 GM BTL NS (09:58)
[2021-06-19] MEDS: VANCOMYCIN/WATER (PEG) 1.25 GM/250 ML BAG IV ×2 (09:59→21:26)
[2021-06-19] MEDS: Normal Saline 500 ML 30 ML IV (10:00)
[2021-06-19 15:03] VITALS: BP 151/83; PULSE 77; RESP 14; TEMP 36.9; O2SAT 96
--- NOTE | 2021-06-19 18:51 | NUR.NOTE ---
Nursing Note: Patient s dressings were checked today, they were intact, so no actions were needed today. He was comfortable and He denied needs when asked by nursing. Tap marshall is in reach and patient will be supported as needed
[2021-06-19] MEDS: diazePAM 5 MG TAB 2.5 MG PO (21:23)
[2021-06-19] MEDS: Gabapentin 300 MG CAP 900 MG PO (21:24)
[2021-06-19] MEDS: HYDROmorphone 2 MG TAB PO (21:24)
[2021-06-19] MEDS: diphenhydrAMINE 25 MG CAP 50 MG PO (21:24)
[2021-06-19] MEDS: Melatonin 3 MG TAB 9 MG PO (21:25)
[2021-06-20 00:04] VITALS: BP 147/83; PULSE 85; RESP 18; TEMP 36.8; O2SAT 92
[2021-06-20] MEDS: Acetaminophen 500 MG TAB 1000 MG PO ×3 (06:23→21:27)
[2021-06-20] MEDS: Pantoprazole 40 MG TABCR PO (06:23)
[2021-06-20] MEDS: Dronabinol 2.5 MG CAP PO ×2 (06:23→10:59)
[2021-06-20] MEDS: Methylphenidate 10 MG TAB PO ×2 (06:23→11:00)
[2021-06-20] MEDS: cefTRIAXone 2 GM/50 ML BAG IVPB (08:04)
[2021-06-20] MEDS: Lidocaine 5% Patch 2 PATCH TP (08:04)
--- NOTE | 2021-06-20 08:04 | OT.INNT ---
Date of service: 06/20/21 Time of Service: 07:45 Occupational Therapy Notes 06/20/21 OT attempted to see pt who was sleeping when OT arrived. OT did attempt to wake pt up and was not successful and he continued to sleep. Michelle Pearce OTR/[facility]
[2021-06-20] MEDS: Protein Nutritional Supplement 16 GM 1 OUNCE PACKET PO ×2 (08:06→21:26)
[2021-06-20] MEDS: Senna TAB 2 TAB PO ×2 (08:06→21:26)
[2021-06-20] MEDS: Polyethylene Glycol 3350 17 GM PACKET PO (08:06)
[2021-06-20] MEDS: diazePAM 5 MG TAB PO ×3 (08:07→21:27)
[2021-06-20] MEDS: Multivitamin w/Minerals TAB 1 TAB PO (08:07)
[2021-06-20] MEDS: DULoxetine 30 MG CAP 90 MG PO (08:07)
[2021-06-20] MEDS: Cetirizine 10 MG TAB PO (08:08)
[2021-06-20] MEDS: busPIRone 5 MG TAB 20 MG PO ×2 (08:08→21:27)
[2021-06-20] MEDS: Apixaban 5 MG TAB PO ×2 (08:08→21:28)
[2021-06-20] MEDS: Ascorbic Acid 500 MG TAB PO ×2 (08:08→21:28)
[2021-06-20] MEDS: Gabapentin 300 MG CAP 600 MG PO ×2 (08:08→12:30)
[2021-06-20] MEDS: Docusate Sodium 100 MG CAP PO ×3 (08:08→21:28)
[2021-06-20] MEDS: Magnesium Chloride 64 MG TABCR PO ×2 (08:08→21:27)
[2021-06-20] MEDS: Normal Saline Flush 10 ML SYR IVP ×4 (08:09→21:44)
[2021-06-20] MEDS: Fluticasone NASAL SPRAY 16 GM BTL NS (08:15)
[2021-06-20 10:47] LABS: Vancomycin, Trough 16.5 ug/mL (10.0-20.0)
[2021-06-20] MEDS: VANCOMYCIN/WATER (PEG) 1.25 GM/250 ML BAG IV (10:59)
[2021-06-20] MEDS: Normal Saline 500 ML 30 ML IV (11:00)
[2021-06-20 11:10] VITALS: BP 161/80; PULSE 66; RESP 18; TEMP 36.8; O2SAT 98
[2021-06-20 13:32] LABS: Bilirubin Negative (Negative); Blood Moderate (Negative); Clarity Sl Cloudy (Clear); Glucose Negative (Negative); Ketones Negative (Negative); Leukocyte Esterase Trace (Negative); Nitrite Negative (Negative); Specific Gravity 1.025 (1.005-1.025); Urobilinogen 0.2 EU/dL (Up TO 0.2); pH 5.5 (5-8)
[2021-06-20] MEDS: HYDROmorphone 2 MG/ML VIAL 0.5 MG IVP (13:37)
[2021-06-20 13:51] LABS: Bacteria Few HPF (Negative); C & S Indicated? Yes; Casts Negative LPF (Negative); Crystals Negative HPF (Negative); Epithelial Cells Negative HPF (Negative); Mucus Trace (Negative); RBC 20-50 HPF (0-2)
[2021-06-20] MEDS: Fluconazole 100 MG TAB 400 MG PO (16:21)
[2021-06-20] MEDS: fentaNYL 75 MCG PATCH TD (16:22)
[2021-06-20] MEDS: Gabapentin 300 MG CAP 900 MG PO ×2 (18:06→21:26)
[2021-06-20] MEDS: Melatonin 3 MG TAB 9 MG PO (21:26)
[2021-06-20] MEDS: diazePAM 5 MG TAB 2.5 MG PO (21:26)
[2021-06-20] MEDS: diphenhydrAMINE 25 MG CAP 50 MG PO (21:27)
[2021-06-20] MEDS: HYDROmorphone 2 MG TAB PO (21:27)
[2021-06-20] MEDS: HYDROmorphone 2 MG/ML VIAL 1 MG IVP (21:44)
[2021-06-21 01:07] VITALS: BP 144/65; PULSE 77; RESP 18; TEMP 36.7; O2SAT 97
[2021-06-21] MEDS: Dronabinol 2.5 MG CAP PO ×2 (06:37→11:27)
[2021-06-21] MEDS: Acetaminophen 500 MG TAB 1000 MG PO ×3 (06:37→21:09)
[2021-06-21] MEDS: Pantoprazole 40 MG TABCR PO (06:37)
[2021-06-21] MEDS: Methylphenidate 10 MG TAB PO ×2 (06:37→11:28)
[2021-06-21 08:24] VITALS: BP 103/56; PULSE 52; RESP 20; TEMP 37; O2SAT 100
[2021-06-21] MEDS: cefTRIAXone 2 GM/50 ML BAG IVPB (08:56)
[2021-06-21] MEDS: Polyethylene Glycol 3350 17 GM PACKET PO (08:56)
[2021-06-21] MEDS: Lidocaine 5% Patch 2 PATCH TP (08:56)
[2021-06-21] MEDS: DULoxetine 30 MG CAP 90 MG PO (08:57)
[2021-06-21] MEDS: Protein Nutritional Supplement 16 GM 1 OUNCE PACKET PO ×2 (08:57→21:07)
[2021-06-21] MEDS: Ascorbic Acid 500 MG TAB PO ×2 (08:58→21:09)
[2021-06-21] MEDS: Fluconazole 100 MG TAB 400 MG PO (08:58)
[2021-06-21] MEDS: Cetirizine 10 MG TAB PO (08:58)
[2021-06-21] MEDS: Senna TAB 2 TAB PO ×2 (08:58→21:08)
[2021-06-21] MEDS: Multivitamin w/Minerals TAB 1 TAB PO (08:58)
[2021-06-21] MEDS: busPIRone 5 MG TAB 20 MG PO ×2 (08:59→21:08)
[2021-06-21] MEDS: Gabapentin 300 MG CAP 900 MG PO ×4 (08:59→21:08)
[2021-06-21] MEDS: Apixaban 5 MG TAB PO ×2 (08:59→21:09)
[2021-06-21] MEDS: diazePAM 5 MG TAB PO ×3 (08:59→21:09)
[2021-06-21] MEDS: Magnesium Chloride 64 MG TABCR PO ×2 (08:59→21:09)
[2021-06-21] MEDS: Docusate Sodium 100 MG CAP PO ×3 (08:59→21:09)
[2021-06-21] MEDS: Normal Saline Flush 10 ML SYR IVP ×3 (09:00→21:07)
[2021-06-21] MEDS: Fluticasone NASAL SPRAY 16 GM BTL NS (10:14)
[2021-06-21 16:09] VITALS: BP 107/72; PULSE 66; RESP 18; TEMP 36.1; O2SAT 95
[2021-06-21] MEDS: HYDROmorphone 2 MG/ML VIAL 1 MG IVP (21:07)
[2021-06-21] MEDS: diazePAM 5 MG TAB 2.5 MG PO (21:08)
[2021-06-21] MEDS: Melatonin 3 MG TAB 9 MG PO (21:08)
[2021-06-21] MEDS: diphenhydrAMINE 25 MG CAP 50 MG PO (21:09)
[2021-06-21] MEDS: HYDROmorphone 2 MG TAB PO (21:09)
[2021-06-21 23:43] VITALS: BP 105/64; PULSE 64; RESP 18; TEMP 36.5; O2SAT 93
[2021-06-22] MEDS: Dronabinol 2.5 MG CAP PO ×2 (06:04→12:09)
[2021-06-22] MEDS: Methylphenidate 10 MG TAB PO ×2 (06:04→12:09)
[2021-06-22] MEDS: Acetaminophen 500 MG TAB 1000 MG PO ×2 (06:04→13:33)
[2021-06-22] MEDS: Protein Nutritional Supplement 16 GM 1 OUNCE PACKET PO (08:03)
[2021-06-22] MEDS: Gabapentin 300 MG CAP 900 MG PO ×3 (08:04→18:47)
[2021-06-22] MEDS: Normal Saline Flush 10 ML SYR IVP ×2 (08:04→19:50)
[2021-06-22] MEDS: Multivitamin w/Minerals TAB 1 TAB PO (08:05)
[2021-06-22] MEDS: Fluconazole 100 MG TAB 400 MG PO (08:05)
[2021-06-22] MEDS: DULoxetine 30 MG CAP 90 MG PO (08:05)
[2021-06-22] MEDS: Magnesium Chloride 64 MG TABCR PO (08:05)
[2021-06-22] MEDS: amLODIPine 10 MG TAB PO (08:06)
[2021-06-22] MEDS: Senna TAB 2 TAB PO (08:06)
[2021-06-22] MEDS: busPIRone 5 MG TAB 20 MG PO (08:06)
[2021-06-22] MEDS: Apixaban 5 MG TAB PO (08:06)
[2021-06-22] MEDS: Ascorbic Acid 500 MG TAB PO (08:06)
[2021-06-22] MEDS: Polyethylene Glycol 3350 17 GM PACKET PO (08:07)
[2021-06-22] MEDS: diazePAM 5 MG TAB PO ×2 (08:07→13:34)
[2021-06-22] MEDS: Pantoprazole 40 MG TABCR PO (08:07)
[2021-06-22] MEDS: Fluticasone NASAL SPRAY 16 GM BTL NS (08:07)
[2021-06-22] MEDS: Cetirizine 10 MG TAB PO (08:07)
[2021-06-22] MEDS: Docusate Sodium 100 MG CAP PO ×2 (08:07→13:34)
[2021-06-22] MEDS: Lidocaine 5% Patch 2 PATCH TP (08:08)
[2021-06-22 19:47] VITALS: BP 108/68; PULSE 72; RESP 18; TEMP 36.7; O2SAT 95
--- NOTE | 2021-06-22 19:54 | NUR.NOTE ---
@1920 TILE MASON reported to this RN that since patient came back to the unit from visiting family, he is acting weird and she saw him eating a homemade brownie.When this RN went into the room, patient was not able to identify who i was , was very drowsy and was adamant that SWETHA Pal is his nurse and she was sitting in his room not too long ago. This RN informed patient that SWETHA Pal is not here, and he stated that someone is playing tricks on his eyes. Alex BRYANT started talking gibberish and nodded back to sleep but is easily aroused. Charge Nurse made aware who in turn informed MD. UDS and urine analysis was ordered, vitals are stable.
[2021-06-22 21:10] LABS: Bilirubin Negative (Negative); Blood Negative (Negative); Clarity Clear (Clear); Glucose Negative (Negative); Ketones Negative (Negative); Leukocyte Esterase Trace (Negative); Nitrite Negative (Negative); Specific Gravity 1.015 (1.005-1.025); Urobilinogen 0.2 EU/dL (Up TO 0.2); pH 5.5 (5-8)
[2021-06-22 21:12] LABS: *AMPHETAMINES SCREEN URINE Negative (Negative); *BARBITURATES SCREEN URINE Negative (Negative); *BENZODIAZEPINES SCREEN URINE Positive (Negative); Cannabinoids THC Negative (Negative); Cocaine Screen,Urine Negative (Negative); METHADONE URINE SCREEN Negative (Negative); OPIATES URINE SCREEN Negative (Negative)
[2021-06-22 21:13] LABS: Tricyclic Antidepressants Negative (Negative)
[2021-06-22 21:19] LABS: Bacteria Negative HPF (Negative); C & S Indicated? No; Crystals Negative HPF (Negative); Epithelial Cells Negative HPF (Negative); Mucus Negative (Negative); RBC 0-2 HPF (0-2)
[2021-06-23] MEDS: Dronabinol 2.5 MG CAP PO ×2 (06:21→11:34)
[2021-06-23] MEDS: Acetaminophen 500 MG TAB 1000 MG PO ×2 (06:21→13:20)
[2021-06-23] MEDS: Methylphenidate 10 MG TAB PO ×2 (06:21→11:34)
[2021-06-23 07:46] VITALS: BP 110/67; PULSE 68; RESP 17; TEMP 36.7; O2SAT 96
[2021-06-23] MEDS: Fluconazole 100 MG TAB 400 MG PO (08:54)
[2021-06-23] MEDS: busPIRone 5 MG TAB 20 MG PO (08:54)
[2021-06-23] MEDS: Lidocaine 5% Patch 2 PATCH TP (08:54)
[2021-06-23] MEDS: Apixaban 5 MG TAB PO (08:55)
[2021-06-23] MEDS: Multivitamin w/Minerals TAB 1 TAB PO (08:55)
[2021-06-23] MEDS: Pantoprazole 40 MG TABCR PO (08:55)
[2021-06-23] MEDS: Senna TAB 2 TAB PO (08:55)
[2021-06-23] MEDS: Cetirizine 10 MG TAB PO (08:55)
[2021-06-23] MEDS: Docusate Sodium 100 MG CAP PO ×2 (08:55→13:20)
[2021-06-23] MEDS: amLODIPine 10 MG TAB PO (08:55)
[2021-06-23] MEDS: Ascorbic Acid 500 MG TAB PO (08:55)
[2021-06-23] MEDS: Normal Saline Flush 10 ML SYR IVP ×2 (08:56→23:19)
[2021-06-23] MEDS: DULoxetine 30 MG CAP 90 MG PO (08:56)
[2021-06-23] MEDS: Magnesium Chloride 64 MG TABCR PO (08:56)
[2021-06-23] MEDS: Gabapentin 300 MG CAP 900 MG PO ×3 (08:56→17:13)
[2021-06-23] MEDS: Polyethylene Glycol 3350 17 GM PACKET PO (08:57)
[2021-06-23] MEDS: diazePAM 5 MG TAB PO ×2 (08:57→13:20)
[2021-06-23] MEDS: Protein Nutritional Supplement 16 GM 1 OUNCE PACKET PO (08:57)
[2021-06-23] MEDS: Fluticasone NASAL SPRAY 16 GM BTL NS (09:05)
[2021-06-23 15:51] VITALS: BP 158/80; PULSE 80; RESP 17; TEMP 37; O2SAT 98
[2021-06-23] MEDS: fentaNYL 75 MCG PATCH TD (16:11)
[2021-06-24] VITALS (8 sets, daily range): BP systolic 106–152; BP diastolic 68–79; PULSE 63–87; RESP 10–18; TEMP 36.5–37; O2SAT 92–98
--- NOTE | 2021-06-24 | DI.CT_ITS ---
Exam(s) CT BRAIN NECK CTA EXAM: CT BRAIN NECK CTA CLINICAL HISTORY: AMS. TECHNIQUE: Imaging Protocol: Axial CT angiography was performed with multi-slice acquisition and mu lti-planar and/or 3D reconstructions. CONTRAST MATERIAL: Intravenous: Omnipaque 350 Contrast volume:structured data in ml COMPARISON: CT CT HEAD WO from 06/17/[address] HEAD WO from 06/17/[address] ABDOMEN WO from 06/17/2021 FINDINGS: CT Head W/O and W contrast: Ventricles and Extra axial spaces: Normal in size and morphology for the patient's age. Hemorrhage: None. Cerebral parenchyma: Normal. Midline shift: None. Brainstem/Cerebellum: Normal. Calvarium: Normal. Visualized Paranasal sinuses/Mastoids: Mild ethmoid sinus mucosal thickening. Soft Tissues: Unremarkable. Enhancement: Normal. CTA Brain W: Internal Carotid Arteries: Petrous: Normal. Cavernous: Normal. Cerebral: Normal. Middle Cerebral Arteries: Right: No aneurysm, occlusion or significant stenosis. Left: No aneurysm, occlusion or significant stenosis. Anterior Cerebral Arteries: Right: No aneurysm, occlusion or significant stenosis. Left: No aneurysm, occlusion or significant stenosis. Posterior cerebral Arteries: Right: No aneurysm, occlusion or significant stenosis. Left: No aneurysm, occlusion or significant stenosis. Vertebral Arteries: Right: No aneurysm, occlusion or significant stenosis. Left: No aneurysm, occlusion or significant stenosis. Basilar Artery: No aneurysm, occlusion or significant stenosis. CTA Neck W: Common Carotid: Right: Calcification common carotid bulb. No aneurysm, occlusion or significant stenosis. Left: Calcification common carotid bulb. No aneurysm, occlusion or significant stenosis. External Carotid: Right: No aneurysm, occlusion or significant stenosis. Left: No aneurysm, occlusion or significant stenosis. Internal Carotid: Right: No aneurysm, occlusion or significant stenosis. Left: No aneurysm, occlusion or significant stenosis. Vertebral Artery: Right: No aneurysm, occlusion or significant stenosis. Left: No aneurysm, occlusion or significant stenosis. Lung Apices: Normal. Bones: Degenerative changes in the cervical spine. Posterior spinal fusion rods from the lower thora cic through upper cervical regions. Soft Tissues: Normal. IMPRESSION: 1. Normal CTA examination of the [place]. 2. Unremarkable CT Head. 3. CT neck: Calcification of the common carotid bulbs without significant stenosis. No evidence of d issection. RADIATION DOSE DELIVERED: 2,367.43mGy.cm Total DLP DATA REPOSITORY: All CT scans at this facility are submitted to the National Radiology Data Registry (NRDR) Dose Index Registry (DIR) with the [employer] (ACR). RADIATION OPTIMIZATION: All CT scans at this facility use at least one of these dose optimization te chniques: automated exposure control; mA and/or kV adjustment per patient size (includes targeted exa ms where dose is matched to clinical indication); or iterative reconstruction.
[2021-06-24] MEDS: Methylphenidate 10 MG TAB PO ×2 (06:35→10:44)
[2021-06-24] MEDS: Dronabinol 2.5 MG CAP PO ×2 (06:35→10:44)
[2021-06-24] MEDS: Acetaminophen 500 MG TAB 1000 MG PO ×2 (06:35→13:35)
[2021-06-24] MEDS: Normal Saline Flush 10 ML SYR IVP ×3 (08:41→23:09)
[2021-06-24] MEDS: Lidocaine 5% Patch 2 PATCH TP (08:42)
[2021-06-24] MEDS: Polyethylene Glycol 3350 17 GM PACKET PO (08:42)
[2021-06-24] MEDS: Protein Nutritional Supplement 16 GM 1 OUNCE PACKET PO ×2 (08:42→23:08)
[2021-06-24] MEDS: Fluticasone NASAL SPRAY 16 GM BTL NS (08:43)
[2021-06-24] MEDS: Senna TAB 2 TAB PO (08:44)
[2021-06-24] MEDS: DULoxetine 30 MG CAP 90 MG PO (08:44)
[2021-06-24] MEDS: busPIRone 5 MG TAB 20 MG PO (08:44)
[2021-06-24] MEDS: Magnesium Chloride 64 MG TABCR PO (08:44)
[2021-06-24] MEDS: Multivitamin w/Minerals TAB 1 TAB PO (08:44)
[2021-06-24] MEDS: Cetirizine 10 MG TAB PO (08:45)
[2021-06-24] MEDS: Gabapentin 300 MG CAP 900 MG PO ×2 (08:45→13:34)
[2021-06-24] MEDS: Pantoprazole 40 MG TABCR PO (08:45)
[2021-06-24] MEDS: Docusate Sodium 100 MG CAP PO ×2 (08:45→13:35)
[2021-06-24] MEDS: Ascorbic Acid 500 MG TAB PO (08:45)
[2021-06-24] MEDS: amLODIPine 10 MG TAB PO (08:46)
[2021-06-24] MEDS: diazePAM 5 MG TAB PO ×2 (08:46→13:35)
[2021-06-24] MEDS: Apixaban 5 MG TAB PO (08:46)
[2021-06-24] MEDS: Normal Saline 1,000 ML 1000 ML IV ×2 (09:36→10:44)
--- NOTE | 2021-06-24 10:22 | OT.INTREAT ---
Date of service: 06/24/21 Time of Service: 08:45 Occupational Therapy Notes Occupational Therapy Inpatient Treatment Note Date: 06/24/21 PRECAUTIONS: Fall, standard, DNR/DNI SUBJECTIVE: Pt states that he can't remember last night at all, he notes that he is not sure what is happening or when this started but he doesn't like it. OBJECTIVE: BATHING: sitting in bed max (A) set up and mod-step by step vc Upper Body: (I) washing face EATING: Increased performance time today, max (A) for positioning and don and doffing silverware, he is able to bring hand to mouth but requires end (A) as pt goes to the (L) with his spoon and fork. He requires vc to stay on task and at times just moves his silverware from side to side without realizing it. OVerall his functional (I) he is improving but cognitively he is struggling today. He states multiple times throughout session that he can't remember what happened. ASSESSMENT/PLAN: Pt has made increased functional gains in terms of his (I) he is confused today and his cognition is limiting his success in his overall performance of his ADLS. Nursing is aware and it was reported to sheet metal duct worker supervisor and they are looking into this. Pt asked OT 3x when she arrived but was able to hold conversation throughout session but pt was confused and discussing his dreams and describes that he feels like he is watching life from up above. TREATMENT CODES/TIME: [id number], 30 minutes (08:45) Michelle Pearce, OTR/L [facility]
[2021-06-24] MEDS: Fluconazole 100 MG TAB 400 MG PO (10:44)
--- NOTE | 2021-06-24 14:03 | W.PALPGNOTE ---
Date of service: 06/24/21 Time of Service: 08:03 Assessment and Plan Assessment and plan (1) Encephalopathy: Status: Acute (2) Palliative care encounter: Status: Acute Assessment and plan: I have spoken with LEIGHANN Sow about Favio's confusion. She started at appropriate large work-up. He was definitely worse by p.m. Work-up is in progress. I am glad to see that a Covid test was done and is negative. I was concerned about exposure during his gathering last week. I will continue to follow him and am awaiting follow-up of different tests Magi and I spoke about discontinuing gabapentin and I think that that is a good decision. He may also be having a drug reaction to another medication such as cymbalta (? 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 He has massive wounds on his sacrum with osteomyelitis. These are healing fairly well. He also has a colostomy and indwelling catheter. He had been progressing fairly well. Plan was for him to go to [place] to be evaluated but unfortunately this will appointment was changed from June to July. I see him regularly for palliative care. Staff had said that he was having some episodes of confusion. This is unusual for Favio. He did go out of the building with his family for gathering. He states that he did not have any unusual substances. It was a hot day but he enjoyed his gathering. When I went into the room he kept telling me that he had a bandage on his left hand and that he needed to get it off. I showed him several times that there was no bandage there. He could remember some things very well but others he was confused I did report this to LEIGHANN Sow who is his primary hospitalist. When I came back later in the day he initially was going down for multiple tests including head CT etc. When I saw him at the end of the day he could remember who I was, but he thought he was in his grandparents house. He states that he plays in the backyard regularly. Exam Narrative Exam Narrative: Early a.m. he was confused, late p.m. he looked diaphoretic. He had just returned from multiple tests. His heart was regular. He was breathing well. His abdomen was soft nontender. I did not look at his wounds Objective Last Vital Signs Temp 97.9 F 06/24/21 09:04 Pulse 76 06/24/21 09:04 Resp 18 06/24/21 09:04 BP 125/73 06/24/21 09:04 Pulse Ox 96 06/24/21 09:04 Laboratory Tests 06/16/21 06/24/21 06/24/21 17:18 19:00 19:00 WBC Hct ESR D-Dimer 2034 H VBG Lactate BUN Calcium Magnesium AST 40 H ALT 104 H Alkaline Phosphatase C-Reactive Protein 3.16 H 06/24/21 06/24/21 06/24/21 19:00 19:00 19:00 WBC Hct ESR 34 H D-Dimer VBG Lactate 1.1 BUN 30 H Calcium 11.6 H Magnesium AST 81 H ALT 155 H Alkaline Phosphatase 127 H C-Reactive Protein 06/24/21 06/24/21 19:00 19:00 WBC 5.74 Hct 35.1 L ESR D-Dimer VBG Lactate BUN Calcium Magnesium 1.6 L AST ALT Alkaline Phosphatase C-Reactive Protein CT Head MPRESSION: No acute intracranial hemorrhage, mass effect or midline shift.
[2021-06-24] MEDS: Omnipaque 350 MG/ML 100 ML BTL IJ (18:04)
--- NOTE | 2021-06-24 18:42 | W.PM.PROGNOT ---
Date of Service Date of service: 06/24/21 Time of Service: 18:43 Assessment and Plan Assessment and plan (1) Acute osteomyelitis of sacrum: Start date: 06/24/21 Start time: 18:52 Status: Chronic Assessment and plan: MRI read bilateral osteo due to this he was placed on vanco initially but due to urine cx he was switched to dapto and cefazolin 2 gm. Though looking through his medication I don't see his ancef. This could some of the cause of his encephalopathy, cmp, cbc, mag, lactate, esr ordered Will also r/o other etiologies, lumbar puncture for as he received apixaban, this will be held, he will receive enoxaparin daily as a bridge until night then it will be dcd for test. (2) Encephalopathy: Start date: 06/24/21 Start time: 19:03 Status: Acute Assessment and plan: as above (3) Major depressive disorder: Start date: 06/24/21 Start time: 19:03 Status: Chronic Assessment and plan: very confused as above Qualifiers: Major depression recurrence: single episode Active/Remission status: currently active Major depression episode severity: moderate Qualified Code(s): F32.1 - Major depressive disorder, single episode, moderate (4) Neurogenic bladder: Start date: 06/24/21 Start time: 19:05 Status: Chronic Assessment and plan: on 06/16 suprapubic changed by myself due to urosepsis, see h/p Per Dr. Molina we will need monthly changes, I am more than happy to change them if Dr. Molina is unavailable. as above (5) Quadriplegia: Start date: 06/24/21 Start time: 19:05 Status: Chronic Assessment and plan: cont OT/. P.T. to work with patient He is able to move his middle finger on his right hand slightly which is new for him He has appt with [facility] on June 18 for paralysis center to determine if surgery is an option (6) Hx of caloric malnutrition: Start date: 06/24/21 Start time: 19:05 Status: Resolved Assessment and plan: continue marinol with ritilan this has improved his appetite and have nutrition continue to follow him (7) DVT (deep venous thrombosis): Start date: 06/24/21 Start time: 19:05 Status: Chronic Assessment and plan: Recent u/s reveals DVT still in place continue eliquis as above Qualifiers: DVT location: lower extremity Affected thrombotic vein of extremity: femoral Chronicity: acute Laterality: right Qualified Code(s): I82.411 - Acute embolism and thrombosis of right femoral vein (8) Discharge planning issues: Start date: 06/24/21 Start time: 19:06 Status: Acute Assessment and plan: At this time patient really needs tertiary center this would be most appropriate however he has been turned down by multiple facilities, citing too high acuity for them. Annette from continues to work on this, THANK YOU Annette. discussed with Dr Montoya Subjective Subjective Patient reports: other Interval history since last seen: Severely confused. Not doing well. R/o etiologies, concern for meningitis vs sepsis, vs hemorrhagic stroke. CT of the head, cbc, cmp, lumbar puncture, though due to apixaban he can not have this until will bridge with enoxaparin hold am. Decreased gabapentin at this time though it appears his confusion has worsened over the week. He will need to be placed in to acute care tomorrow. Exam Narrative Exam Narrative: Patient severely confused, HR is normal, LSC, BS+x4, Colostomy is stooling with pink stoma. No clubbing cyanosis or edema. Objective Last Vital Signs Temp 36.7 C 06/24/21 15:07 Pulse 87 06/24/21 15:07 Resp 18 06/24/21 15:07 BP 106/72 06/24/21 15:07 Pulse Ox 94 06/24/21 15:07
[2021-06-24 18:47] LABS: Source Nasal/Nares
--- NOTE | 2021-06-24 18:50 | DI.VRAD_ITS ---
PROCEDURE INFORMATION: Exam: CT Head Without Contrast Exam date and time: 06/24/2021 5:01 PM Age: 56 years old Clinical indication: Other: AMS; Prior surgery TECHNIQUE: Imaging protocol: Computed tomography of the head without contrast. COMPARISON: CT HEAD WO 06/17/2021 2:38 PM FINDINGS: Brain: No definite mass, mass effect, or midline shift. Cerebral ventricles: No ventriculomegaly. Paranasal sinuses: Visualized sinuses are unremarkable. No fluid levels. Mastoid air cells: Visualized mastoid air cells are well aerated. Bones/joints: Unremarkable. No acute fracture. Soft tissues: Unremarkable. IMPRESSION: No acute intracranial hemorrhage, mass effect or midline shift. PROCEDURE INFORMATION: Exam: CT Angiography Head With Contrast, Arteriography Exam date and time: 06/24/2021 5:01 PM Age: 56 years old Clinical indication: Other: AMS; Prior surgery TECHNIQUE: Imaging protocol: Computed tomography angiography of the head with contrast. Exam focused on the arteries. 3D rendering (Not supervised by radiologist): MIP and/or 3D reconstructed images were created by the technologist. COMPARISON: CT HEAD WO 06/17/2021 2:38 PM FINDINGS: ANTERIOR CIRCULATION: Right internal carotid artery: Unremarkable. Intracranial segment is patent with no significant stenosis. No aneurysm. Right middle cerebral artery: Unremarkable. No occlusion or significant stenosis. No aneurysm. Right anterior cerebral artery: Unremarkable. No occlusion or significant stenosis. No aneurysm. Left internal carotid artery: Unremarkable. Intracranial segment is patent with no significant stenosis. No aneurysm. Left middle cerebral artery: Unremarkable. No occlusion or significant stenosis. No aneurysm. Left anterior cerebral artery: Unremarkable. No occlusion or significant stenosis. No aneurysm. POSTERIOR CIRCULATION: Right vertebral artery: Unremarkable. No occlusion or significant stenosis. No aneurysm. Left vertebral artery: Unremarkable. No occlusion or significant stenosis. No aneurysm. Basilar artery: Unremarkable. No occlusion or significant stenosis. No aneurysm. Right posterior cerebral artery: Unremarkable. No occlusion or significant stenosis. No aneurysm. Left posterior cerebral artery: Unremarkable. No occlusion or significant stenosis. No aneurysm. IMPRESSION: No acute intracranial abnormality. PROCEDURE INFORMATION: Exam: CT Angiography Neck With Contrast Exam date and time: 06/24/2021 5:01 PM Age: 56 years old Clinical indication: Other: AMS; Prior surgery TECHNIQUE: Imaging protocol: Computed tomography angiography of the neck with contrast. 3D rendering (Not supervised by radiologist): MIP and/or 3D reconstructed images were created by the technologist. COMPARISON: CT HEAD WO 06/17/2021 2:38 PM FINDINGS: Right common carotid artery: No stenosis. No dissection or occlusion. Right internal carotid artery: Atherosclerotic plaque is noted at the bifurcation and proximal internal carotid artery without hemodynamically significant stenosis. No dissection or occlusion. Right external carotid artery: No occlusion or stenosis of the origin. Left common carotid artery: No stenosis. No dissection or occlusion. Left internal carotid artery: No stenosis of the extracranial segment. No dissection or occlusion. Left external carotid artery: No occlusion or stenosis of the origin. Right vertebral artery: No stenosis. No dissection or occlusion. Left vertebral artery: No stenosis. No dissection or occlusion. Soft tissues: Normal. No significant soft tissue swelling. Bones/joints: No acute fracture. There is evidence of prior posterior cervicothoracic Surgical spinal fusion. IMPRESSION: No stenosis or occlusion. REFERENCES: NASCET CRITERIA. The degree of internal carotid artery stenosis is based on NASCET criteria. Normal is no stenosis. Mild is less than 50% stenosis. Moderate is 50-69% stenosis. Severe is 70% to 99% stenosis. Total occlusion is no detectable patent lumen. Dictated and Authenticated by: Celia Miller MD. Ordering:DONNA Del Rio MD
[2021-06-24 19:22] LABS: Lactate 1.1 mmol/L (0.6-1.4)
[2021-06-24 19:25] LABS: Abs Immature Grans 0.02 10^3/uL (0.0-0.06); Absolute Basophil Count 0.02 10^3/uL (0.0-0.2); Absolute Eosinophil Count 0.36 10^3/uL (0.0-0.7); Absolute Lymphocyte Count 1.55 10^3/uL (1.2-3.4); Absolute Monocyte Count 0.48 10^3/uL (0.1-0.8); Absolute Neutrophil Count 3.31 10^3/uL (1.2-6.7); Basophils % 0.3; Eosinophils % 6.3; HCT 35.1 % (40.0-50.0); HGB 10.9 g/dL (13.5-17.5); Immature Grans % 0.3; MCH 28.5 pg (27.0-33.0); MCHC 31.1 % (32.0-36.0); MCV 91.6 fL (80-95); MPV 10.2 fL (8.0-11.0); Monocytes % 8.4; Neutrophils % 57.7; Nucleated RBC 0 %; Platelet Count 204 10^3/uL (130-400); RBC 3.83 10^6/uL (4.36-5.78); RDW 14.6 % (11.8-14.1); RDW-SD 49.3 fL; WBC 5.74 10^3/uL (4.4-10.8)
[2021-06-24 19:27] LABS: ESR 34 mm/hr (0-20)
[2021-06-24 19:38] LABS: COVID-19 PCR Negative (Negative)
[2021-06-24 19:44] LABS: Magnesium 1.6 mg/dL (1.8-2.4)
[2021-06-24 19:50] LABS: C-Reactive Protein 3.16 mg/dL (0.0-0.3)
[2021-06-24 19:51] LABS: ALT 155 U/L (16-63); AST 81 U/L (15-37); Albumin 3.1 g/dL (3.4-5.0); Alkaline Phosphatase 127 U/L (46-116); Anion Gap 6.5 mmol/L (3-11); BUN 30 mg/dL (7-18); Bilirubin, Total 0.2 mg/dL (0.2-1.0); CO2 27.5 mmol/L (21.0-32.0); CREATININE 0.7 mg/dL (0.70-1.30); Chloride 106 mmol/L (98-107); Glucose 135 mg/dL (74-106); Potassium 4.3 mmol/L (3.5-5.1); Sodium 140 mmol/L (136-145); Total Protein 6.7 g/dL (6.4-8.2)
[2021-06-24 19:55] LABS: Calcium 11.6 mg/dL (8.5-10.1)
[2021-06-24 19:58] LABS: D-Dimer 2034 ng/mlFEU (<500)
[2021-06-24] MEDS: ceFAZolin 2 GM/50 ML BAG IVPB (21:22)
[2021-06-24] MEDS: Normal Saline 500 ML 30 ML IV (21:23)
[2021-06-24 22:56] LABS: Ammonia 21 umol/L (11-32)
[2021-06-24] MEDS: MAGNESIUM SULFATE 2 GM/50 ML BAG IVPB (23:06)
[2021-06-24] MEDS: diazePAM 10 MG/2 ML SYR 2.5 MG IVP (23:07)
[2021-06-24] MEDS: ACETAMINOPHEN 1,000 MG/100 ML BTL 400 MG IVPB (23:07)
[2021-06-24] MEDS: Gabapentin 300 MG CAP 600 MG PO (23:08)
[2021-06-25 03:15] VITALS: BP 127/78; PULSE 63; RESP 18; TEMP 36.6; O2SAT 97
[2021-06-25] MEDS: ceFAZolin 2 GM/50 ML BAG IVPB (04:07)
--- NOTE | 2021-06-25 04:22 | NUR.NOTE ---
Nursing Note: Nicki requested that she be contacted with any new information or changes, especially regarding Favio's current mental status.
[2021-06-25] MEDS: ACETAMINOPHEN 1,000 MG/100 ML BTL 400 MG IVPB (06:01)
[2021-06-25] MEDS: Methylphenidate 10 MG TAB PO ×2 (07:53→12:24)
[2021-06-25] MEDS: Dronabinol 2.5 MG CAP PO ×2 (07:53→12:24)
[2021-06-25] MEDS: Pantoprazole 40 MG TABCR PO (07:53)
[2021-06-25 07:56] VITALS: BP 128/82; PULSE 62; RESP 18; TEMP 36.6; O2SAT 98
[2021-06-25] MEDS: Enoxaparin 80 MG/0.8 ML SYR SC (08:39)
[2021-06-25] MEDS: Lidocaine 5% Patch 2 PATCH TP (08:39)
[2021-06-25] MEDS: Normal Saline Flush 10 ML SYR IVP (08:39)
[2021-06-25] MEDS: Polyethylene Glycol 3350 17 GM PACKET PO (08:39)
[2021-06-25] MEDS: Protein Nutritional Supplement 16 GM 1 OUNCE PACKET PO (08:39)
[2021-06-25] MEDS: DULoxetine 30 MG CAP 90 MG PO (08:40)
[2021-06-25] MEDS: busPIRone 5 MG TAB 20 MG PO (08:40)
[2021-06-25] MEDS: Senna TAB 2 TAB PO (08:40)
[2021-06-25] MEDS: Multivitamin w/Minerals TAB 1 TAB PO (08:40)
[2021-06-25] MEDS: Magnesium Chloride 64 MG TABCR PO (08:41)
[2021-06-25] MEDS: Fluconazole 100 MG TAB 400 MG PO (08:41)
[2021-06-25] MEDS: amLODIPine 10 MG TAB PO (08:42)
[2021-06-25] MEDS: Docusate Sodium 100 MG CAP PO ×2 (08:42→13:45)
[2021-06-25] MEDS: Cetirizine 10 MG TAB PO (08:42)
[2021-06-25] MEDS: Ascorbic Acid 500 MG TAB PO (08:42)
[2021-06-25] MEDS: Gabapentin 300 MG CAP PO ×2 (08:42→12:40)
[2021-06-25] MEDS: Fluticasone NASAL SPRAY 16 GM BTL NS (09:07)
--- NOTE | 2021-06-25 09:18 | CMPROGNOTE_ITS ---
- If Service Date Differs Date of service: 06/25/21 Time of Service: 09:18 Care Management Progress Note S/O:Favio has been in SB-1 status awaiting [employer] Medicaid approval. Today he will be discharged from SB and readmitted as an acute inpatient secondary to the development of acute confusion. Nicki, the mother of his children and good friend, has stated that Favio has been confused and having hallucinations for the past week or two, but this has not been as apparent to caregivers, providers and CM until Thursday. Favio was taken outside on Thursday for several hours to visit with his children, Nicki and an aunt and uncle. They had a tailgate democrat with food provided by the family.Upon return to the unit Favio was noted to be confused. A drug screen was done which was negative for anything other than benzos which he is taking here. Today Favio remains confused. He told CM that he was home and then at his grandparents house. He was not able to identify that he is in the hospital and thought he had a pocket on his shirt (nataliya) containing his grandfather's service medals.Favio kept touching his ostomy bag through his nataliya and thought it was a pocket filled with objects. A CT scan of his head was repeated yesterday and that was negative. His Eliquis was stopped and a neurology consult with Dr. Green was ordered for today. Nicki katherindevis very concerned and plans to visit later today. A: Favio is a 56 year old man admitted on 02/22/21 with constipation. Since then Favio alternated between acute stays and SB-1, never leaving the facility. On 05/26/21 he was transferred from SB1 to acute due to urosepsis and on 05/31/21 returned to SB-1. P: Favio is still awaiting approval for [employer] medicaid. Additional documents were submitted last week. He will follow up with his community providers and transport via ambulance. CM will continue to support Favio and his family and his discharge planning needs.
[2021-06-25] MEDS: diazePAM 2 MG TAB PO ×2 (09:47→13:44)
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
--- NOTE | 2021-06-25 10:18 | NUR.NOTE ---
Nursing Note: pt being transferred from swingbed to inpt.
--- NOTE | 2021-06-25 11:11 | OTTR_ITS ---
Date of service: 06/25/21 Time of Service: 09:25 Occupational Therapy Notes Occupational Therapy Inpatient Treatment Note Date: 06/25/21 PRECAUTIONS: Fall, standard, DNR/DNI SUBJECTIVE: Pt was sitting in his bed when OT arrived. He is confused and cognitively able to perform tasks but states that he can hear his heart beat (which is someone working in the ceiling). He states that he can't remember his days and asks OT multiple times who she is. OBJECTIVE: PAIN:c/o pain in (B) UE (L) > (R) Manual Therapy [id number]: OT performed joint blocking techniques, manual mobilization to pts (B) UE with PROM to pts wrists, forearms, elbows and digits. Functionally pt performed this with increased (I) with his grasp and release but was sore in his (B) UE, pt states he is not sure why. OT performed AA ROM with tone reduction techniques needed in his (L) UE which he tolerated well. Pt has increased stiffness, his digits are functionally able to flex and extend and overall minimal pain throughout. Pts cognitive status makes it harder to manage his tone today, because he is distracted easily and notes that he doesn't know what happened to his hands. OT will continue to monitor pts response to todays session and progress accordingly. TREATMENT CODES/TIME: [id number], 25 minutes (09:25) Michelle Pearce OTR/L [facility]
--- NOTE | 2021-06-25 12:15 | WOUNDCONS_ITS ---
- If Service Date Differs Date of service: 06/25/21 Time of Service: 12:15 Wound Initial Evaluation Narrative: Mr. Velasquez seen for weekly re-evaluation and photos. Gives verbal consent. See Photos below. Pt has had a slight increase in size of wounds since last week, but tunnels and undermining have improved, see chart for specific measurements. Provider suspected possible return/reoccurrence of osteomyelitis last week. MRI was ordered and BILATERAL ISCHIAL TUBEROSITY OSTEOMYELITIS was confirmed. Initially started on vancomycin to treat the osteo but since last consult has been switched to Daptomycin and Cefazolin due to VRE in his urine. Historically his wounds has responded well, ie healing, when Pt is on Vancomycin. See photos below. Favio has apparently has new and increased confusion and hallucinations over the last week. He knows me by face when I enter the room and said Manuel Ernandez! He is A&Ox4, but also is mumbling thing and not making complete sense. Per Favio he is eating well. Per documentation he has been eating 100% of his meals. Pt reports making good choices for meals with dietary team. Pt's calorie and protein demand high d/t wounds. Request nutrition continues to follow Pt to ensure adequate protein and calorie goals. Pt educated on importance of continuing to eat his meals to reach protein and calorie goal for wound healing. Arjo bed continues to be rounded on each shift. Alternating air setting is on @ this time. Issues with bed reported by nursing last week, bed reportedly switched out. Pt report's that Physical therapy has not been working with him. Notes show they have discharged him from their services. Favio reports he has not been up in the chair recently. He does report seeing Michelle from OT. RIGHT Ischial tuberosity-NO tunnel @ 5oclock this assessment. 1.5 cm undermining noted from 12-3 o'clock. wound measures 2.5x 2.3x1.5 LEFT SIDE- . 0.8 cm undermining noted from 7-9 o'clock. wound measures 2.6x1.6x1 Recommend continuing Aquacell Ag rope placed into wound 3x/weekly. Monitor Pt closely for deterioration of wounds/serge wound skin and increase in size of wounds. Pt has had DTI on Right lateral foot, has deteriorated since last consult. Provider Ammy Skinner NP notified, came in room to see wounds. Nursing reports Pt has been wearing his PODO boots regulary. ? incorrect application of boots. Suspect this may be a factor for worsening condition of DTI, new area of necrosis just below original DTI noted. ? concern for osteomylitis, bone palpable, but not seen; expected with location. Recommend changing treatment @ this time.Apply anasept gel and a mepilex, change daily and PRN. Offload heel and right lateral foot completely. Recommend podiatry consult. Monitor closely, notifiy provider of any deterioration. New DTI on Right HEEL. Intact @ this time. applied skin prep and a mepilex. change Q3 Days and PRN. OFFLOAD HEEL completely. New DTI on left lateral ankle, intact. offload. Pt has abdominal wound. Wound cleansed, promogran rosa placed on wound beds, moistened w/NS, covered with Mepilex Ag. Change Q5 Days and PRN. Nursing educated on Offloading and proper positioning of Pt. - Wound left ischial tuberosity Wound Length: 2.6 cm (0.8cm undermining 7-9 o'clock) Wound Width: 1.6 cm Wound Depth: 1 cm Right ischial tuberosity Wound Length: 2.5 cm (1.5 cm undermining 12-3) Wound Width: 2.3 cm Wound Depth: 1.5 cm Left Lateral Ankle Wound Type: Deep Tissue Injury (DTI) Wound Length: 0.9 cm Wound Width: 0.4 cm (not open, no depth) right heel Wound Type: Deep Tissue Injury (DTI) Wound Length: 3.5 cm Wound Width: 6 cm (no depth) Right Lateral foot proximal Wound Length: 1.5 cm Wound Width: 2 cm Wound Depth: 0.1 cm Right lateral foot distal Wound Length: 0.6 cm Wound Width: 2 cm Wound Depth: 0.1 cm Midline Abdomen Wound Length: 4.1 cm Wound Width: 2.8 cm Wound Depth: 0.2 cm - Recomendation Recomendation:: BILATERAL ISCHIAL TUBEROSITIES- Cleanse Bilateral Ischial Tuberosity wounds with Skintegrity wound cleanser and sterile gauze. Pat dry. Apply skin prep to periwound skin. Place Xspand Ag rope into wound using cotton tip applicator, ensuring contact with tunneled areas, accordion into wound. Fill in wound 80% [address] the way with rope, DO NOT PACK TOO TIGHT (rope will expand with moisture). Using Sterile Saline squirt in 1 CC's (to moisten Aquacell) Cover with Mepilex. Change TUESDAYS, THURSDAYS, and SATURDAYS and PRN. ABDOMEN- Cleanse wound wound cleanser. Pat dry, apply skin prep to periwound skin. Apply saline moistened promogran rosa to wound beds. cover with Mepilex AG. Change Q5days and PRN. Coincide with Ostomy bag changes Q 5 days. RIGHT LATERAL FOOT- Cleanse wound with wound cleanser. Pat dry. apply skin prep to periwound. apply Anasept Gel to areas of necrosis. Cover with Mepilex. Change DAILY and PRN. Recommend Podiatry consult to address right foot wound. RIGHT HEEL- Apply skin prep to DTI. Cover with Mepilex. OFFLOAD HEEL at all times. Left ANKLE- DTI present. Offload left ankle and Heel @ all times. report any deterioration to provider. SACRUM- Apply mepilex for protection. Change every 7 days and PRN. Physcian/Nurse Practioner Notified: Yes (Brody)
[2021-06-25] MEDS: ceFAZolin 2,000 MG in Normal Saline 100 ML 200 ML IVPB (12:24)
[2021-06-25] MEDS: Acetaminophen 500 MG TAB 1000 MG PO (13:44)
--- NOTE | 2021-06-25 14:08 | NUR.NOTE ---
Nursing Note: 1400: RICHELLE Addison noted a blue and white capsule on pt's floor at the head of the bed. this scribe goes in a removes pill from floor and places in glove. pharmacist, Luz, is present on unit, pill given Luz for identification in the pharmacy. Luz will ID and report to nursing. unclear as to how long the pill has been in room on floor.
--- NOTE | 2021-06-26 07:49 | OT.INDS ---
Date of service: 06/26/21 Time of Service: 07:49 Occupational Therapy Notes Occupational Therapy Inpatient Discharge Summary Date: 06/26/21 Dates of Service: 06/03/21-06/26/21 Referring Doctor: Eliane Tolliver NP OT Orders: Non-Urgent Precautions: Full, Fall, Standard PATIENT PROFILE/ADMITTING DIAGNOSIS: Pt is a 56 year old male who presented to the ED from SNF for the following dx of major depressive disorder, quaridplegia, UTI, decubitus skin ulcers, constipation, and neurogenic bladder, encephalopathy, s/p colostomy, low magnesium level, fever, UTI, indwelling catheter, sepsis, acute osteomyelitis of sacrum, major depression disorder, DVT. Past Medical History: Medical History (Updated 05/26/21 @ 16:35 by Eliane Tolliver NP) Acute embolism and thrombosis of deep vein of right lower extremity Anxiety disorder Aspiration into airway C. difficile colitis Constipation Constipation due to neurogenic bowel Decubitus skin ulcer Decubitus ulcer of buttock, stage 4 Dislocation of C6/C7 cervical vertebrae DNR (do not resuscitate) DVT (deep venous thrombosis) DVT prophylaxis Encounter for wound care Fall down embankment Fusion of spine H/O deep venous thrombosis Hypokalemia Hypotension Ileus Iron deficiency anemia Large bowel obstruction Major depressive disorder Malnutrition following gastrointestinal surgery Neurogenic bladder Neurogenic bowel Open wound of abdominal wall Palliative care patient Physician orders for life-sustaining treatment (POLST) form indicates patient wish for sa-gqz-glusxmpbqan status Quadriplegia Right arm pain Visit for wound check Surgical History (Updated 05/26/21 @ 16:35 by Eliane Tolliver NP) S/P colostomy Social History/Home Situation: Pt previously residing at SNF where his DME needs are met. He is functionally requiring what he reports as Max (A) for everything. He can perform his eating routines although notes that its a mess for him and he gets everything all over him. He would like to have better function of his (B) UE. His hands were in a contracted position which was bothersome to him, this has improved since being admitted. Equipment owned/DME: DME needs met by SNF previously SUBJECTIVE: NT OBJECTIVE: ROM: RUE shoulder flexion minimal, elbow WFL, wrist extension is fair, digits in flexed position L UE shoulder flexion minimal, elbow WFL, wrist extension is fair, digits in flexed position STRENGTH: RUE Automatic Washer Mechanic strength is weak unable to fully grasp digits LUE Automatic Washer Mechanic strength is weak unable to fully grasp digits SENSATION: decreased sensation in UE (B) with hypersensitivity in his (L) BATHING: sitting in bed max (A) set up and mod-step by step vc Upper Body: (I) washing face EATING: Increased performance time, max (A) for positioning and don and doffing silverware, he is able to bring hand to mouth but requires end (A) as pt goes to the (L) with his spoon and fork. He requires vc to stay on task and at times just moves his silverware from side to side without realizing it. BALANCE: Static sitting Good Dynamic Sitting Good ASSESSMENT: Patient is a 56-year-old male referred to occupational therapy services with diagnosis of major depressive disorder, quaridplegia, UTI, decubitus skin ulcer, constipation, neurogenic bladder who recently under went a colostomy, aspiration of airway and is currently in acute level of care due to a UTI. Pt has had a significant cognitive decline in mental status. Based on this, [place] [facility] [place] acute level of care at this time. GOALS 1. Grooming- pt will be mod (I) with brushing his teeth with mod vc throughout 2. Dressing- Pt will be min (A) with don and doffing shirt 3. Bathing- pt will be able to (I) wash his face and (B) UE 4. Pt will hold his fork and be (I) food to mouth for 1-2 meals per day with progression based on functional activity tolerance- met PLAN OF CARE/TREATMENT PLAN: Discharge from skilled OT services. DISCHARGE RECOMMENDATIONS Return to SNF vs. Home with 24 hour care givers. TREATMENT TIME/MINUTES/CODES N/A Michelle Pearce OTR/L [facility]
== END 2021-06-25 14:05 | disposition short-term general hospital (02) | DRG 539 ==
PROVIDERS: Family Medicine; Nurse Practitioner Family; Admitting Provider Internal Medicine; PCP Nurse Practitioner Family; Visit Provider Internal Medicine
DX: M46.28 Osteomyelitis of vertebra, sacral and sacrococcygeal region (principal); L89.324 Pressure ulcer of left buttock, stage 4; L89.314 Pressure ulcer of right buttock, stage 4; G82.50 Quadriplegia, unspecified; F32.1 Major depressive disorder, single episode, moderate; I82.411 Acute embolism and thrombosis of right femoral vein; K59.2 Neurogenic bowel, not elsewhere classified; E46 Unspecified protein-calorie malnutrition; G93.40 Encephalopathy, unspecified; N31.9 Neuromuscular dysfunction of bladder, unspecified; F41.9 Anxiety disorder, unspecified; Z66 Do not resuscitate; D50.9 Iron deficiency anemia, unspecified; Z93.3 Colostomy status; T81.89XA Other complications of procedures, not elsewhere classified, initial encounter; S31.105A Unspecified open wound of abdominal wall, periumbilic region without penetration into peritoneal cavity, initial encounter; M86.8X8 Other osteomyelitis, other site; L89.896 Pressure-induced deep tissue damage of other site; Z20.822 Contact with and (suspected) exposure to COVID-19
CPT/HCPCS: 36415; 36573; 70496; 70498; 72197; 74150; 80048; 80053; 80076; 80307; 84145; 85652; 87040; 87077; 87635; 97110; 97140; 97163; 97166; 97530; 97535; 99305; 99307; 99309; 99316; 70450; 71045; 80202; 81003; 81015; 82140; 83605; 83735; 85025; 85379; 86140; 87086; 87186; 93971; J0131; J0690; J0744; J1650; J3360; J3490

== ENCOUNTER 2021-06-25 11:07 | Inpatient (IN) | payer BC, SELFPAY ==
--- NOTE | 2021-06-25 11:09 | W.PM.HP.N ---
Date of service: 06/25/21 Time of Service: 11:09 Assessment and Plan Assessment and plan (1) Encephalopathy: Status: Acute Assessment and plan: admit to med/surg acute inpatient status. pharmacy review of medications showed interaction between fentanyl and diflucan where decreased metabolism of fentanyl with used together. diflucan was discontinued and fentanyl reduced to 50 mcg from 75 mcg. lumbar puncture for as he received apixaban, this will be held, neurology consulted continue to monitor (2) Acute osteomyelitis of sacrum: Status: Chronic Assessment and plan: continue cefazolin and daptomycin wound care (3) Neurogenic bladder: Status: Chronic Assessment and plan: on 06/16 suprapubic changed by myself due to urosepsis Per Dr. Molina we will need monthly changes (4) Major depressive disorder: Status: Chronic Qualifiers: Active/Remission status: currently active Major depression episode severity: moderate Major depression recurrence: single episode Qualified Code(s): F32.1 - Major depressive disorder, single episode, moderate (5) S/P colostomy: Status: Chronic (6) Quadriplegia: Status: Chronic Assessment and plan: cont OT/. P.T. to work with patient He is able to move his middle finger on his right hand slightly which is new for him He has appt with [facility] on June 18 for paralysis center to determine if surgery is an option. (7) DVT (deep venous thrombosis): Status: Chronic Assessment and plan: apixaban on hold for LP Qualifiers: Affected thrombotic vein of extremity: femoral Chronicity: acute DVT location: lower extremity Laterality: right Qualified Code(s): I82.411 - Acute embolism and thrombosis of right femoral vein (8) Discharge planning issues: Status: Acute Assessment and plan: care management following. discussed with Dr Montoya History of Present Illness History of Present Illness Chief Complaint: altered mental status Narrative: This is a 56 year old quadriplegic, paralyzed in an accident in October where he was intoxicated and fell down an embankment, initially brought here but transported to [facility], discharged to acute rehab, then subsequently admitted to [facility], who originally presented here in January of 2021 for constipation, found to have decubitus ulcers on both sacrum. He was admitted here where he has remained with multiple admission and readmissions from swing to acute for various complications including: osteomyelitis, UTI, recurrent wound infection, major depression, neurogenic bowel with chronic constipation s/p colostomy placement, uncontrolled pain, sepsis, anorexia, recurrent osteomyelitis who now has developed an altered mental status/delirum which was first noticed after a day out with family. first thought maybe some illicit substance was ingested but drug screen negative, then thought maybe dehydration but did not improved after rehydrated. infection work up has been negative thus far, labs and imaging also with no explanation for his symptoms. newer medication includes diflucan for yeast in his urine, which can slow metabolism of fentanyl. He has remained hemodynamically stable with no fevers. He is being re-admitted to med/surg status for further work up and monitoring. admission to acute status discussed with Dr Montoya. Review of Systems All systems reviewed & are unremarkable except as noted in HPI and below Constitutional Constitutional: Denies fever(s) Cardiovascular Cardiovascular: Denies chest pain Gastrointestinal Gastrointestinal: Denies nausea Integumentary/Breasts Skin/Breast: Reports new lesions Neurologic Neurologic: Reports behavioral changes, Reports confusion and Denies seizure-like activity Psychiatric Psychiatric: Reports behavioral changes and Reports confusion [facility], [facility] Medical History Acute embolism and thrombosis of deep vein of right lower extremity Anxiety disorder Aspiration into airway C. difficile colitis Constipation Constipation due to neurogenic bowel Decubitus skin ulcer Decubitus ulcer of buttock, stage 4 Dislocation of C6/C7 cervical vertebrae DNR (do not resuscitate) DVT (deep venous thrombosis) DVT prophylaxis Encounter for wound care Fall down embankment Fusion of spine H/O deep venous thrombosis Hypokalemia Hypotension Ileus Iron deficiency anemia Large bowel obstruction Major depressive disorder Malnutrition following gastrointestinal surgery Neurogenic bladder Neurogenic bowel Open wound of abdominal wall Palliative care patient Physician orders for life-sustaining treatment (POLST) form indicates patient wish for [id number] status Quadriplegia Right arm pain Visit for wound check Surgical History S/P colostomy Social History Smoking/Tobacco Use Status: Never Smoking risk assessment performed?: Yes Alcohol Intake: current Alcohol Intake frequency: a few times a week Drug use: Occasionally Substance use type: marijuana Do you feel safe at home: Yes Do you feel safe in your relationship?: Yes Meds Allergies and Home Medications Allergies Allergy/AdvReac Type Severity Reaction Status Date / Time No Known Allergies Allergy Unverified 11/26/18 03:46 Home Medications Medication Instructions Recorded Confirmed Type Lactobacillus acidoph-L.bulgaricus 1 tab PO TID tab 01/29/21 06/25/21 History 1 million cell tablet acetaminophen 500 mg capsule 1,000 mg PO Q8H cap 01/29/21 06/25/21 History albuterol sulfate 90 mcg/actuation 2 inh INHALATION Q4H PRN PRN 01/29/21 06/25/21 History breath activated powder inhaler apixaban 5 mg tablet 5 mg PO BID 01/29/21 06/25/21 History bisacodyl 10 mg rectal suppository See Rx Instructions .ROUTE 01/29/21 06/25/21 History .COMPLEX PRN buspirone 10 mg tablet 20 mg PO BID tab 01/29/21 06/25/21 History docusate sodium 100 mg capsule 100 mg PO TID 01/29/21 06/25/21 History polyethylene glycol 3350 17 17 g PO DAILY 01/29/21 06/25/21 History gram/dose oral powder sennosides 8.6 mg capsule 17.2 mg PO BID 01/29/21 06/25/21 History baclofen 10 mg PO TID 02/20/21 06/25/21 History ondansetron HCl [Zofran] 4 mg PO Q8H PRN 02/20/21 06/25/21 History amlodipine 10 mg PO DAILY 04/10/21 06/25/21 History ascorbic acid (vitamin C) 500 mg PO BID 04/10/21 06/25/21 History diazepam 5 mg PO TID PRN PRN 04/10/21 06/25/21 History diphenhydramine HCl 25 mg PO QHS 04/10/21 06/25/21 History duloxetine 90 mg PO DAILY 04/10/21 06/25/21 History lidocaine 2 patch TOPICAL DAILY 04/10/21 06/25/21 History multivitamin,tx-minerals 1 tab PO DAILY 04/10/21 06/25/21 History [Theragran-M] pantoprazole 40 mg PO DAILY 04/10/21 06/25/21 History spironolactone [Aldactone] 25 mg PO DAILY 04/10/21 06/25/21 History Exam Const General: comfortable, no acute distress, frail appearing and ill appearing chronically Nutritional Appearance: thin Resp Effort & Inspection: normal respiratory effort Cardio Rate: regular rate Rhythm: regular rhythm
[2021-06-25 15:00] VITALS: PULSE 66
[2021-06-25] MEDS: fentaNYL 50 MCG PATCH TD (15:00)
[2021-06-25 15:24] VITALS: BP 131/77; PULSE 68; RESP 18; TEMP 36.6; O2SAT 97
--- NOTE | 2021-06-25 17:01 | NCONE_ITS ---
Date of service: 06/25/21 Time of Service: 17:01 Assessment and Plan Assessment and plan (1) Encephalopathy: Status: Acute Assessment and plan: Mr. Velasquez is a 56 year-old quadriplegic with a prolonged hospitalization with bilateral sacral osteomyelitis with increasing confusion and sedation over the last few weeks. Given slow progression over several weeks, I suspect toxic-metabolic etiology, likely from a combination of his numerous centrally acting medications. I recommend continue slow reduction of his centrally acting medications until mental clearance. If no clearance, could consider brain MRI, though low yield given duration of symptoms. No fever, WBC count, nor nuchal rigidity. Less likely infectious especially as he remains on antibiotic coverage. Please keep me updated. History of Present Illness History of Present Illness Chief Complaint: AMS Narrative: Mr. Velasquez (Favio) is a 56 year-old recently quadriparetic man s/p fall down on embankment on 10/26/20 with C6-7 dislocation and fracture. He has been in the hospital since 02/20/21 either as an inpatient or on swing-bed status. He originally came in from [facility] after a fall, found to have severe constipation. He had known sacral ulcers at admission. These progressed to osteomyelitis by mid-March. He underwent a diverting colostomy on 03/20/21 to help with healing. This was complicated by large bowel obstruction for which he underwent de- obstruction and colostomy take-down and then new colostomy formation on 03/31/21, then complicated by ileus. In late May he declined again from urosepsis. In the last 2 weeks, osteo has now spread bilaterally in his sacrum. He has been awaiting tertiary care for many weeks/months but continues to not be accepted. He is back on inpatient for new altered mental status. Per friend Nicki (mother of his children), she had noted a slow cognitive decline for several weeks along with increased daytime sleepiness. In the last 1 week, this has been much worse with delusions and hallucinations. He has become less capable and not able to participate in rehab. She notes pain has been exceptionally well controlled along with LE spasms. She has noted more than usual UE spasms. Work-up thus far: afebrile. Nml BP/HR. CBC ok. Increasing but still only mildly elevated LFTs. Ammonia 21. UA (06/22/21) neg. UDS (06/22/21): neg. CRP slightly higher than baseline with ESR slightly lower than baseline. CTH and CTA head/neck were unremarkable. I reviewed these images personally and this is my personal interpretation. His centrally acting medications include: buspirone, valium, marinol, cymbalta, Fentanyl patch, gabapentin, lidoderm patch, daptomycin, and methlyphenidate. Diclofenac was recently added for yeast in his urine. Hosp team has reduced gabapentin, Valium, and fentanyl doses today. Consults Requesting physician: Jose Montoya Review of Systems All systems reviewed & are unremarkable except as noted in HPI and below PFSH Medical History Acute embolism and thrombosis of deep vein of right lower extremity Anxiety disorder Aspiration into airway C. difficile colitis Constipation Constipation due to neurogenic bowel Decubitus skin ulcer Decubitus ulcer of buttock, stage 4 Dislocation of C6/C7 cervical vertebrae DNR (do not resuscitate) DVT (deep venous thrombosis) DVT prophylaxis Encounter for wound care Fall down embankment Fusion of spine H/O deep venous thrombosis Hypokalemia Hypotension Ileus Iron deficiency anemia Large bowel obstruction Major depressive disorder Malnutrition following gastrointestinal surgery Neurogenic bladder Neurogenic bowel Open wound of abdominal wall Palliative care patient Physician orders for life-sustaining treatment (POLST) form indicates patient wish for dm-xoh-czucfkvogif status Quadriplegia Right arm pain Visit for wound check Surgical History S/P colostomy Social History Smoking/Tobacco Use Status: Never Smoking risk assessment performed?: Yes Alcohol Intake: current Alcohol Intake frequency: a few times a week Drug use: Occasionally Substance use type: marijuana Do you feel safe at home: Yes Do you feel safe in your relationship?: Yes Visit Medication and Allergies Active Medications Generic Name Dose Route Start Last Admin Trade Name Freq PRN Reason Stop Dose Admin Acetaminophen 1,000 mg 06/25/21 14:00 06/25/21 14:41 Acetaminophen 500 Mg Tab PO Not Given Q8H [place] Albuterol Sulfate 0 puff 06/25/21 11:29 Albuterol Hfa 6.7 Gm 200 Puff Inh IH Q4H PRN PRN Amlodipine Besylate 10 mg 06/26/21 08:30 Amlodipine 10 Mg Tab PO DAILY [facility] Ascorbic Acid 500 mg 06/25/21 20:00 Ascorbic Acid 500 Mg Tab PO BID [facility] Bisacodyl 10 mg 06/25/21 11:30 Bisacodyl 10 Mg Supp NM DAILY PRN PRN Buspirone HCl 20 mg 06/25/21 20:00 Buspirone 5 Mg Tab PO BID [facility] Cetirizine HCl 10 mg 06/26/21 08:30 Cetirizine 10 Mg Tab PO DAILY [facility] Clotrimazole 60 gm/ Zinc Oxide 0 gm 06/25/21 11:43 60 gm/ Vitamin A/Vitamin D 60 TP gm TID PRN PRN Dextrose 0 gm 06/25/21 11:33 Glucose 40% Oral Solution 15 Gm/37.5 Gm Tube PO DIRECTED PRN Dextrose/Water 0 gm 06/25/21 11:32 Dextrose 50%-Water 25 Gm/50 Ml Syr IVP DIRECTED PRN Diazepam 2 mg 06/25/21 14:00 06/25/21 14:41 Diazepam 2 Mg Tab PO Not Given TID [facility] Dimethicone/Zinc Oxide 0 gm 06/25/21 11:07 Michell Protect Cream 142 Gm Tube TP PRN PRN Diphenhydramine HCl 50 mg 06/25/21 20:30 Diphenhydramine 25 Mg Cap PO DAILY@2030 [facility] Docusate Sodium 100 mg 06/25/21 14:00 06/25/21 14:41 Docusate Sodium 100 Mg Cap PO Not Given TID [facility] Dronabinol 2.5 mg 06/26/21 07:00 Dronabinol 2.5 Mg Cap PO BID@0700,1100 [facility] Duloxetine HCl 90 mg 06/26/21 08:30 Duloxetine 30 Mg Cap PO DAILY [facility] Enoxaparin Sodium 80 mg 06/26/21 08:30 Enoxaparin 80 Mg/0.8 Ml Syr SC 06/27/21 01:30 DAILY [facility] Fentanyl 50 mcg 06/25/21 14:00 06/25/21 15:00 Fentanyl 50 Mcg Patch TD 50 mcg Q72H [facility] Administration Fluticasone Propionate 0 gm 06/26/21 08:30 Fluticasone Nasal Reese 16 Gm Btl NS DAILY [facility] Gabapentin 300 mg 06/25/21 16:00 06/25/21 16:22 Gabapentin 300 Mg Cap PO Not Given QID [facility] Sodium Chloride 500 mls @ 0 mls/hr 06/25/21 11:35 Saline 500ml Bag IV PRN PRN As Directed Daptomycin 700 mg/ Sodium 50 mls @ 100 mls/hr 06/26/21 12:00 Chloride IVPB Q24H [facility] Protocol Cefazolin Sodium 2,000 mg/ 100 mls @ 200 mls/hr 06/25/21 20:00 Sodium Chloride IVPB Q8H [facility] IV Miscellaneous Supplies 1 each 06/25/21 11:45 Iv Access IV DIRECTED [place] Iron/Minerals/Multivitamins 1 tab 06/26/21 08:30 Multivitamin W/Minerals Tab PO DAILY [facility] Lactobacillus Acidophilus/Casei 1 cap 06/26/21 08:30 L. Acidophilus, Casei, Rhamnosus Cap PO DAILY [facility] Lidocaine 2 patch 06/26/21 08:00 Lidocaine 5% Patch TP DAILY@0800 [facility] Magnesium Chloride 64 mg 06/25/21 20:00 Magnesium Chloride 64 Mg Tabcr PO BID [facility] Melatonin 9 mg 06/25/21 21:00 Melatonin 3 Mg Tab PO DAILY@2100 [facility] Methylphenidate HCl 10 mg 06/26/21 07:00 Methylphenidate 10 Mg Tab PO BID@0700,1100 [facility] Miscellaneous 2 each 06/25/21 20:00 Patch Removal (Lidocaine Patches) TP Q24H [facility] Multi-Ingredient Supplement 1 ounce 06/25/21 20:00 Protein Nutritional Supplement 16 Gm 1 Ounce Packet PO BID [facility] Ondansetron HCl 4 mg 06/25/21 11:38 Ondansetron 4 Mg/2 Ml Vial IVP Q4H PRN PRN Pantoprazole Sodium 40 mg 06/26/21 07:30 Pantoprazole 40 Mg Tabcr PO DAILY@0730 [facility] Polyethylene Glycol 17 gm 06/26/21 08:30 Polyethylene Glycol 3350 17 Gm Packet PO DAILY [facility] Sennosides 2 tab 06/25/21 20:00 Senna Tab PO BID [facility] Sodium Chloride 0 ml 06/25/21 11:37 Normal Saline Flush 10 Ml Syr IVP PRN PRN Sodium Chloride 0 ml 06/25/21 20:00 Normal Saline Flush 10 Ml Syr IVP BID [facility] Allergies No Known Allergies Allergy (Unverified 11/26/18 03:46) Exam Narrative Exam Narrative: Physical Exam: Gen: Patient of apparent stated age, chronically ill looking, mildly diaphoretic, sleepy Head and face: no facial or cranial abnormalities Neck: Supple, no meningismus, no occipital tenderness Abd: soft, nontender, nondistended Ext: No edema. No clubbing or cyanosis. No bony deformity. Neuro Exam: Language: fluency, naming, repetition, and comprehension intact; Mental Status: lethargic but arousable; AAOxself only; could not name president; telling bizarre stories today; could tell me his age and Speech: mild dysarthria Cranial nerves: VF intact by threat; EOM intact; face symmetric; tongue and palate midline Motor: flaccid paraplegia of the legs and paresis of the arms. Some early contractures in finger flexion. 0/5 deltoid bilaterally (complicated by poor baseline shoulders/chronic shoulder pain). 3+/5 bilateral biceps and 3-/5 bilateral triceps. No movement in the legs. Coordination: no ataxia Gait: non-ambulatory Results Last Vital Signs Temp 36.6 C 06/25/21 15:24 Pulse 68 06/25/21 15:24 Resp 18 06/25/21 15:24 BP 131/77 06/25/21 15:24 Pulse Ox 97 06/25/21 15:24
[2021-06-25 19:35] VITALS: BP 116/70; PULSE 69; RESP 18; TEMP 36.8; O2SAT 96
[2021-06-25] MEDS: ceFAZolin 2,000 MG in Normal Saline 100 ML 200 MG IVPB (20:21)
[2021-06-25 23:45] VITALS: BP 130/64; PULSE 75; RESP 14; TEMP 36.3; O2SAT 93
[2021-06-26] VITALS (96 sets, daily range): BP systolic 88–155; BP diastolic 59–86; PULSE 60–87; RESP 7–22; TEMP 35.9–37.1; O2SAT 91–98
[2021-06-26] MEDS: Normal Saline Flush 10 ML SYR IVP ×4 (04:17→21:27)
[2021-06-26] MEDS: ceFAZolin 2,000 MG in Normal Saline 100 ML 200 MG IVPB ×3 (04:17→21:14)
[2021-06-26] MEDS: Normal Saline 500 ML 30 ML IV ×3 (04:18→21:15)
[2021-06-26] MEDS: Methylphenidate 10 MG TAB PO ×2 (06:21→11:12)
[2021-06-26] MEDS: Dronabinol 2.5 MG CAP PO ×2 (06:21→11:12)
[2021-06-26] MEDS: Acetaminophen 500 MG TAB 1000 MG PO ×3 (06:21→23:30)
[2021-06-26] MEDS: Enoxaparin 80 MG/0.8 ML SYR SC (08:26)
[2021-06-26] MEDS: Protein Nutritional Supplement 16 GM 1 OUNCE PACKET PO ×2 (08:26→20:26)
[2021-06-26] MEDS: Polyethylene Glycol 3350 17 GM PACKET PO (08:26)
[2021-06-26] MEDS: Lidocaine 5% Patch 2 PATCH TP (08:27)
[2021-06-26] MEDS: DULoxetine 30 MG CAP 90 MG PO (08:27)
[2021-06-26] MEDS: Multivitamin w/Minerals TAB 1 TAB PO (08:28)
[2021-06-26] MEDS: Magnesium Chloride 64 MG TABCR PO ×2 (08:28→20:27)
[2021-06-26] MEDS: Senna TAB 2 TAB PO ×2 (08:28→20:26)
[2021-06-26] MEDS: diazePAM 2 MG TAB PO ×3 (08:28→20:26)
[2021-06-26] MEDS: busPIRone 5 MG TAB 20 MG PO ×2 (08:28→20:26)
[2021-06-26] MEDS: Pantoprazole 40 MG TABCR PO (08:28)
[2021-06-26] MEDS: Cetirizine 10 MG TAB PO (08:29)
[2021-06-26] MEDS: amLODIPine 10 MG TAB PO (08:29)
[2021-06-26] MEDS: Ascorbic Acid 500 MG TAB PO ×2 (08:29→20:27)
[2021-06-26] MEDS: Gabapentin 300 MG CAP PO ×3 (08:29→20:27)
[2021-06-26] MEDS: Docusate Sodium 100 MG CAP PO ×3 (08:29→20:27)
[2021-06-26] MEDS: Fluticasone NASAL SPRAY 16 GM BTL NS (08:41)
--- NOTE | 2021-06-26 09:28 | OTIE_ITS ---
Occupational Therapy Notes Inpatient Occupational Therapy Evaluation Date: 06/26/21 Referring Doctor: Eliane Tolliver NP OT Orders: Non-Urgent Precautions: DNR/DNI, Fall, Standard PATIENT PROFILE/ADMITTING DIAGNOSIS: Pt is a 56 year old male who recently transitioned to acute level of care again due to encephalopathy, low magnesium level, fever, UTI, sepsis, DVT, caloric malnutrition, quadriplegia, depression, acute ostomyelitis of the sacrum. Past Medical History: Acute embolism and thrombosis of deep vein of right lower extremity Anxiety disorder Aspiration into airway C. difficile colitis Constipation Constipation due to neurogenic bowel Decubitus skin ulcer Decubitus ulcer of buttock, stage 4 Dislocation of C6/C7 cervical vertebrae DNR (do not resuscitate) DVT (deep venous thrombosis) DVT prophylaxis Encounter for wound care Fall down embankment Fusion of spine H/O deep venous thrombosis Hypokalemia Hypotension Ileus Iron deficiency anemia Large bowel obstruction Major depressive disorder Malnutrition following gastrointestinal surgery Neurogenic bladder Neurogenic bowel Open wound of abdominal wall Palliative care patient Physician orders for life-sustaining treatment (POLST) form indicates patient wish for op-dxo-eewhzvxphys status Quadriplegia Right arm pain Visit for wound check Surgical History S/P colostomy Social History/Home Situation: Pt previously residing at SNF where his DME needs are met. He is functionally requiring what he reports as Max (A) for everything. He can perform his eating routines although notes that its a mess for him and he gets everything all over him. He would like to have better function of his (B) UE. His hands were in a contracted position which was bothersome to him, this has improved since being admitted. 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 Pain: pain in (B) shoulders/elbows ROM: RUE shoulder flexion minimal, elbow WFL, wrist extension is fair, digits in fle xed position L UE shoulder flexion minimal, elbow WFL, wrist extension is fair, digits in flexed position STRENGTH: RUE Threading Machine Setter strength is weak unable to fully grasp digits LUE Threading Machine Setter strength is weak unable to fully grasp digits SENSATION: decreased sensation in UE (B) with hypersensitivity in his (L) Eating- Pt requires max (A) for eating today, OT was able to put his silverware on his hands but he started to stab the fork into his leg as he is trying to get out of bed. His mental confusion is limiting his functional (I). OT recommends that pt utilize max (A) for eating routines as he is unable to bring fork to mouth appropriately at this time due to confusion. BALANCE: Static sitting Good Dynamic Sitting Good SPECIAL TESTS: Daily Activity Limitations Standardized Measure [facility] AM -PAC ?6 clicks? Daily Activity Inpatient Short Form: Raw score: 7 Standardized score: 20.13 CMS score: 92.44% INFORMED CONSENT/EDUCATION: Pt instructed in purpose of OT Consult and plan of care. ASSESSMENT: Patient is a 56-year-old male referred to occupational therapy services with diagnosis of major depressive disorder, quaridplegia, UTI, decubitus skin ulcer, constipation, neurogenic bladder who recently under went a colostomy, aspiration of airway and is currently in acute level of care due to encephalopathy, low magnesium level, fever, UTI, sepsis. Patient presents with clinical signs and symptoms consistent with dx, as demonstrated by the following impairment level findings/functional limitations: Pt requires max (A) for most ADL/IADL routines, he has contracted position of his digits and decreased functional activity tolerance due to fatigue. Decreased sensation in (B) UE and inability to perform his functional mobility (I) without (A). He was discharged from acute level of care and is currently being seen again under acute level of care at this time. AMPAC score 7 Patient is assessed as a High 48450 complexity based on the following: History: see above Examination: see functional limitations as noted above Presentation: evolving Decision Making: AMPAC score 7, CMS 92.44% GOALS Goals x1 week 1. Grooming- pt will be mod (I) with brushing his teeth with mod vc throughout 2. Bathing- pt will be able to (I) wash his face and (B) UE 3. Pt will hold his fork and be (I) food to mouth for 3 meals per day with progression based on functional activity tolerance PLAN OF CARE/TREATMENT PLAN: 1x/day, 5 days/ week x 1week Initiate Occupational Therapy Services for bathing, dressing, grooming, toileting, eating, transfer training. DISCHARGE RECOMMENDATIONS Return to SNF when medically cleared per MD. TREATMENT TIME/MINUTES/CODES [id number], [id number], 35 minutes (08:20) Michelle Pearce OTR/L [facility]
--- NOTE | 2021-06-26 09:41 | PT.INNT ---
Date of service: 06/26/21 Time of Service: 09:41 PT Notes Visit Reasons: Osteomylitis Referral for PT received on 06/26/2021. Patient has been discontinued from services on 06/14/2021 at highest functional level. At this time, patient remains not appropriate for services due to increased confusion and inability to follow instructions. Patient continues to be at the same functional level as the time of discharge of services except for the new onset confusion and altered mental status. Thank you for the opportunity to participate in the care of this patient. Kathy Solorio PT, DPT, CLT [facility] [place], [place]
--- NOTE | 2021-06-26 10:06 | PGE_ITS ---
Date of Service Date of service: 06/26/21 Time of Service: 10:06 Assessment and Plan Assessment and plan (1) Encephalopathy: Status: Acute Assessment and plan: worsening mental status today. LP still pending for tomorrow fentanyl patch removed, narcan given with some improvement MRI pending. will transfer to ICU (2) Acute osteomyelitis of sacrum: Status: Chronic Assessment and plan: continue cefazolin and daptomycin wound care (3) Neurogenic bladder: Status: Chronic Assessment and plan: on 06/16 suprapubic changed by myself due to urosepsis Per Dr. Molina we will need monthly changes (4) Major depressive disorder: Status: Chronic Qualifiers: Active/Remission status: currently active Major depression episode severity: moderate Major depression recurrence: single episode Qualified Code(s): F32.1 - Major depressive disorder, single episode, moderate (5) S/P colostomy: Status: Chronic (6) Quadriplegia: Status: Chronic Assessment and plan: cont OT/. P.T. to work with patient He is able to move his middle finger on his right hand slightly which is new for him He has appt with [facility] on June 18 for paralysis center to determine if surgery is an option. (7) DVT (deep venous thrombosis): Status: Chronic Assessment and plan: apixaban on hold for LP Qualifiers: Affected thrombotic vein of extremity: femoral Chronicity: acute DVT location: lower extremity Laterality: right Qualified Code(s): I82.411 - Acute embolism and thrombosis of right femoral vein (8) Discharge planning issues: Status: Acute Assessment and plan: care transferred to Dr Montoya, will be transferred to ICU for higher level of care discussed with Dr Montoya Subjective Subjective Patient reports: no new complaints and afebrile Exam Const General: comfortable, no acute distress, frail appearing and ill appearing chronically Nutritional Appearance: thin Resp Effort & Inspection: normal respiratory effort Cardio Rate: regular rate Rhythm: regular rhythm Neuro General: patient confused and patient obtunded Objective Last Vital Signs Temp 36.7 C 06/26/21 07:44 Pulse 60 06/26/21 07:44 Resp 18 06/26/21 07:44 BP 116/73 06/26/21 07:44 Pulse Ox 98 06/26/21 07:44
[2021-06-26 10:50] LABS: Bilirubin Negative (Negative); Blood Small (Negative); Clarity Clear (Clear); Glucose Negative (Negative); Ketones Negative (Negative); Leukocyte Esterase Small (Negative); Nitrite Negative (Negative); Specific Gravity 1.025 (1.005-1.025); Urobilinogen 0.2 EU/dL (Up TO 0.2)
[2021-06-26 11:01] LABS: Bacteria Moderate HPF (Negative); Casts Negative LPF (Negative); Crystals Many Calcium Oxalate HPF (Negative); Epithelial Cells Negative HPF (Negative); Mucus Negative (Negative); WBC 20-50 HPF (0-5)
[2021-06-26 11:02] LABS: C & S Indicated? Yes
[2021-06-26] MEDS: fentaNYL 50 MCG PATCH TD (14:40)
[2021-06-26] MEDS: Naloxone 0.4 MG/ML VIAL (14:55)
--- NOTE | 2021-06-26 15:26 | NUR.NOTE ---
Nursing Note:At 15:10 on 06/26/21 RN and MOISTURE MACHINE TENDER were in pt room and informed pt of stat MD order of MRI of the brain. Pt adamantly refusing MRI at this time. MD notified of pts refusal and states if pt becomes more drowsy/lethargic again, staff will attempt to obtain MRI. RN and MOISTURE MACHINE TENDER then informed pt of stat order to transfer pt to ICU. Pt refusing transfer to ICU at this time. Pt states, Nope. I'm not going to the ICU. If you transfer me over there I'll walk right out of this hospital. RN and MOISTURE MACHINE TENDER acknowledged pt statement and informed the pt that they would notify the MD. RN and MOISTURE MACHINE TENDER then stepped out of pts room and informed the charge nurse of pt refusal of transfer to ICU. Charge nurse then notified MD, and per MD, pt must be transferred to the ICU. RN and MOISTURE MACHINE TENDER to give report to PHOTOGRAPHIC EQUIPMENT TECHNICIAN.
--- NOTE | 2021-06-26 15:32 | NUR.NOTE ---
Nursing Note: At 15:20 on 06/26/21 RN and APPLICATION SUPPORT CONSULTANT gave report on the pt to the PROGRESS MAN. Per PROGRESS MAN once an ICU room is clean they will notify RN and APPLICATION SUPPORT CONSULTANT for transfer of pt to ICU.
--- NOTE | 2021-06-26 15:53 | PDOC.CMPRO ---
- If Service Date Differs Date of service: 06/26/21 Time of Service: 15:53 Care Management Progress Note S/O:Favio has been very confused for the past few days and his speech is often nonsensical. This afternoon his respiratory rate dropped to 7 and Narcan was administered. After the Narcan he became more alert but is still confused and refusing procedures . He will be transferred to the ICU but is verbalizing that he does not want to go there. Nicki was contacted by [facility] and updated about the transfer and the probability that he will have an MRI. A: Favio is a 56 year old man admitted on 02/22/21 with constipation. He has had a complicated course which has included several SB-1 stays as well as acute admissions. P: Favio's condition has deteriorated today and he will be transferred to the ICU. CM notified Nicki of the change in condition and transfer. Favio's ultimate disposition remains unclear as he awaits [facility] Medicaid approval. CM willl continue to support Favio, his family and assess for dicharge planning considerations.
--- NOTE | 2021-06-26 16:32 | NUR.NOTE ---
Nursing Note: At 1620 on 06/26/21, LOG WASHER called to inform Med/customer services coordinator that they were ready to have the pt. transferred from Med/Surg to ICU. At 1625 on 06/26/21, this RN transferred the pt. from Med/Surg to ICU per MD order. Pt. was settled in to room 220 and responsibility of care was given to the LOG WASHER.
[2021-06-26] MEDS: diphenhydrAMINE 25 MG CAP 50 MG PO (20:27)
[2021-06-26] MEDS: Melatonin 3 MG TAB 9 MG PO (20:28)
[2021-06-27] VITALS (110 sets, daily range): BP systolic 105–138; BP diastolic 50–85; PULSE 60–80; RESP 7–20; TEMP 36.5–37.1; O2SAT 91–97
[2021-06-27] MEDS: ceFAZolin 2,000 MG in Normal Saline 100 ML 200 MG IVPB ×3 (04:13→20:57)
--- NOTE | 2021-06-27 07:29 | OTDS_ITS ---
Date of service: 06/27/21 Time of Service: 07:29 Occupational Therapy Notes Occupational Therapy Inpatient Discharge Summary Date: 06/27/21 Dates of Service: 06/26/21 then medical decline transferred to ICU Referring Doctor: Eliane Tolliver NP OT Orders: Non-Urgent Precautions: Full, Fall, Standard *This Document serves as a summary of care, no skilled OT services provided for this documentation. PATIENT PROFILE/ADMITTING DIAGNOSIS: Pt is a 56 year old male who presented to the ED from SNF for the following dx of major depressive disorder, quaridplegia, UTI, decubitus skin ulcers, constipation, and neurogenic bladder, encephalopathy, s/p colostomy, low magnesium level, fever, UTI, indwelling catheter, sepsis, acute osteomyelitis of sacrum, major depression disorder, DVT. Past Medical History: Medical History (Updated 05/26/21 @ 16:35 by Eliane Tolliver NP) Acute embolism and thrombosis of deep vein of right lower extremity Anxiety disorder Aspiration into airway C. difficile colitis Constipation Constipation due to neurogenic bowel Decubitus skin ulcer Decubitus ulcer of buttock, stage 4 Dislocation of C6/C7 cervical vertebrae DNR (do not resuscitate) DVT (deep venous thrombosis) DVT prophylaxis Encounter for wound care Fall down embankment Fusion of spine H/O deep venous thrombosis Hypokalemia Hypotension Ileus Iron deficiency anemia Large bowel obstruction Major depressive disorder Malnutrition following gastrointestinal surgery Neurogenic bladder Neurogenic bowel Open wound of abdominal wall Palliative care patient Physician orders for life-sustaining treatment (POLST) form indicates patient wish for sr-rvj-[id number] status Quadriplegia Right arm pain Visit for wound check Surgical History (Updated 05/26/21 @ 16:35 by Eliane Tolliver NP) S/P colostomy Social History/Home Situation: Pt previously residing at SNF where his DME needs are met. He is functionally requiring what he reports as Max (A) for everything. He can perform his eating routines although notes that its a mess for him and he gets everything all over him. He would like to have better function of his (B) UE. His hands were in a contracted position which was bothersome to him, this has improved since being admitted. Equipment owned/DME: DME needs met by SNF previously SUBJECTIVE: NT OBJECTIVE: *No skilled OT services provided for this documentation. ROM: RUE shoulder flexion minimal, elbow WFL, wrist extension is fair, digits in flexed position L UE shoulder flexion minimal, elbow WFL, wrist extension is fair, digits in flexed position STRENGTH: RUE Hand Fretted Instrument Maker strength is weak unable to fully grasp digits LUE Hand Fretted Instrument Maker strength is weak unable to fully grasp digits BALANCE: Static sitting Good Dynamic Sitting Good ASSESSMENT: Patient is a 56-year-old male referred to occupational therapy services with diagnosis of major depressive disorder, quaridplegia, UTI, decubitus skin ulcer, constipation, neurogenic bladder who recently under went a colostomy, aspiration of airway and is currently in acute level of care due to a UTI. Pt has had a significant cognitive decline in mental status. Based on this, his level of care has transitioned from [facility] to acute level of care at this time and due to medical decline is currently in the ICU. GOALS 1. Grooming- pt will be mod (I) with brushing his teeth with mod vc throughout 2. Dressing- Pt will be min (A) with don and doffing shirt 3. Bathing- pt will be able to (I) wash his face and (B) UE 4. Pt will hold his fork and be (I) food to mouth for 1-2 meals per day with progression based on functional activity tolerance- met PLAN OF CARE/TREATMENT PLAN: Discharge from skilled OT services d/t a decline in medical status. OT will re- evaluate when MD feels that this is appropriate. DISCHARGE RECOMMENDATIONS Return to SNF vs. Home with 24 hour care givers. TREATMENT TIME/MINUTES/CODES N/A Michelle Pearce, OTR/L [facility]
[2021-06-27] MEDS: Lidocaine 5% Patch 2 PATCH TP (09:12)
[2021-06-27] MEDS: DULoxetine 30 MG CAP 90 MG PO (09:37)
[2021-06-27] MEDS: Polyethylene Glycol 3350 17 GM PACKET PO (09:37)
[2021-06-27] MEDS: Protein Nutritional Supplement 16 GM 1 OUNCE PACKET PO ×2 (09:37→20:51)
[2021-06-27] MEDS: amLODIPine 10 MG TAB PO (09:37)
[2021-06-27] MEDS: Multivitamin w/Minerals TAB 1 TAB PO (09:37)
[2021-06-27] MEDS: Methylphenidate 10 MG TAB PO ×2 (09:38→11:31)
[2021-06-27] MEDS: Magnesium Chloride 64 MG TABCR PO ×2 (09:38→20:49)
[2021-06-27] MEDS: Docusate Sodium 100 MG CAP PO ×3 (09:38→20:51)
[2021-06-27] MEDS: Gabapentin 300 MG CAP PO ×4 (09:38→20:51)
[2021-06-27] MEDS: Cetirizine 10 MG TAB PO (09:38)
[2021-06-27] MEDS: Ascorbic Acid 500 MG TAB PO ×2 (09:38→20:49)
[2021-06-27] MEDS: Acetaminophen 500 MG TAB 1000 MG PO ×2 (09:38→17:37)
[2021-06-27] MEDS: busPIRone 5 MG TAB 20 MG PO ×2 (09:38→20:49)
[2021-06-27] MEDS: Dronabinol 2.5 MG CAP PO ×2 (09:39→11:31)
[2021-06-27] MEDS: Senna TAB 2 TAB PO ×2 (09:39→20:49)
[2021-06-27] MEDS: diazePAM 2 MG TAB PO ×3 (09:40→20:50)
[2021-06-27] MEDS: Pantoprazole 40 MG TABCR PO (09:40)
--- NOTE | 2021-06-27 11:12 | NUR.NOTE ---
Nursing Note: At 0920 on 06/27/21, this RN received report on the pt. from the RESEARCH ASSISTANT. At 1007 on 06/27/21, pt. was transferred from ICU to Med/Surg per MD order. Pt. was settled in and oriented to room 231. VS obtained; VS relatively stable; see flowsheet for more information. Head to toe assessment to be performed. RN will reassess as necessary.
[2021-06-27] MEDS: Normal Saline Flush 10 ML SYR IVP ×3 (11:30→20:51)
--- NOTE | 2021-06-27 12:04 | PGE_ITS ---
Date of Service Date of service: 06/27/21 Time of Service: 12:04 Assessment and Plan Assessment and plan (1) Encephalopathy: Status: Acute Assessment and plan: worsening mental status yesterday No evidence of infectious process. fentanyl patch removed, narcan given with some improvement Now, much improved mental status; oriented x 3. Considering increased fentanyl level while on diflucan (which has now been stopped) and/or psychiatric process. Restarting fentanyl at a 25mcg patch; on 75mcg previously. (2) Acute osteomyelitis of sacrum: Status: Chronic Assessment and plan: continue cefazolin and daptomycin wound care (3) Neurogenic bladder: Status: Chronic Assessment and plan: on 06/[address] Molina we will need monthly changes (4) Major depressive disorder: Status: Chronic Assessment and plan: Cont Duloxetine. Qualifiers: Major depression recurrence: single episode Active/Remission status: c urrently active Major depression episode severity: moderate Qualified Code(s): F32.1 - Major depressive disorder, single episode, moderate (5) S/P colostomy: Status: Chronic (6) Quadriplegia: Status: Chronic Assessment and plan: He is able to move his middle finger on his right hand slightly which is new for him He has appt with [facility] on June 18 for paralysis center to determine if surgery is an option. (7) DVT (deep venous thrombosis): Status: Chronic Assessment and plan: apixaban on hold for LP Qualifiers: DVT location: lower extremity Affected thrombotic vein of extremity: femoral Chronicity: acute Laterality: right Qualified Code(s): I82.411 - Acute embolism and thrombosis of right femoral vein (8) Discharge planning issues: Status: Acute Assessment and plan: Transferred to ICU yesterday. Stable and improved. Transferred back to [facility] unit Subjective Subjective Patient reports: afebrile; denies shortness of breath Interval history since last seen: Favio denies pain currently. He states he is not hungry but has no nausea or abd pain. Exam Const General: comfortable, no acute distress and frail appearing Nutritional Appearance: thin Eyes General: appearance normal, both eyes and all related structures Sclera: sclerae normal Resp Effort & Inspection: normal respiratory effort Auscultation: clear to auscultation bilaterally Cardio Rate: regular rate Rhythm: regular rhythm GI Palpation: soft and nontender Skin General skin exam: no rashes or lesions noted Neuro General: patient confused and patient obtunded Extrem General: no pedal edema and no calf tenderness Psych Mood: congruent mood Affect: normal affect Objective Last Vital Signs Temp 37.0 C 06/27/21 11:24 Pulse 69 06/27/21 11:24 Resp 16 06/27/21 11:24 BP 128/79 06/27/21 11:24 Pulse Ox 92 06/27/21 11:24
--- NOTE | 2021-06-27 16:21 | CMPROGNOTE_ITS ---
- If Service Date Differs Date of service: 06/27/21 Time of Service: 16:21 Care Management Progress Note S/O:Favio was transferred back to Med-Surg today. His confusion is clearing and he was able to have a conversation with CM. The dose of Favio's Fentanyl patch was reduced from 50mcg to 25 mcg. The MRI and LP that had been scheduled were cancelled. Dr. Green saw Favio in consultation again yesterday and determined that his altered mental status was likely due to medication and was not of an infectious etiology. Nicki was updated. A: Favio is a 56 year old man admitted on 02/22/21 with constipation. He has had a complicated course which has included several SB-1 stays as well as acute admissions. P: Favio condition has improved. He is clearer mentally and was transferred back to Med-Surg. 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 CM willl continue to support Favio, his family and assess for discharge planning considerations.
[2021-06-27] MEDS: diphenhydrAMINE 25 MG CAP 50 MG PO (20:50)
[2021-06-27] MEDS: Melatonin 3 MG TAB 9 MG PO (20:50)
[2021-06-28] VITALS (7 sets, daily range): BP systolic 114–134; BP diastolic 70–86; PULSE 68–81; RESP 16–19; TEMP 35.8–36.7; O2SAT 93–97
[2021-06-28] MEDS: Acetaminophen 500 MG TAB 1000 MG PO ×3 (02:04→17:27)
[2021-06-28] MEDS: ceFAZolin 2,000 MG in Normal Saline 100 ML 200 MG IVPB ×3 (04:05→20:35)
[2021-06-28] MEDS: diazePAM 2 MG TAB PO ×2 (07:49→13:53)
[2021-06-28] MEDS: Gabapentin 300 MG CAP PO ×2 (07:50→11:22)
[2021-06-28] MEDS: Cetirizine 10 MG TAB PO (07:50)
[2021-06-28] MEDS: Dronabinol 2.5 MG CAP PO ×2 (07:50→11:22)
[2021-06-28] MEDS: Methylphenidate 10 MG TAB PO ×2 (07:51→11:23)
[2021-06-28] MEDS: Magnesium Chloride 64 MG TABCR PO ×2 (07:51→20:38)
[2021-06-28] MEDS: Senna TAB 2 TAB PO ×2 (07:51→20:37)
[2021-06-28] MEDS: Multivitamin w/Minerals TAB 1 TAB PO (07:51)
[2021-06-28] MEDS: DULoxetine 30 MG CAP 90 MG PO (07:51)
[2021-06-28] MEDS: Docusate Sodium 100 MG CAP PO ×3 (07:52→20:38)
[2021-06-28] MEDS: Ascorbic Acid 500 MG TAB PO ×2 (07:52→20:38)
[2021-06-28] MEDS: amLODIPine 10 MG TAB PO (07:52)
[2021-06-28] MEDS: Pantoprazole 40 MG TABCR PO (07:53)
[2021-06-28] MEDS: busPIRone 5 MG TAB 20 MG PO (07:53)
[2021-06-28] MEDS: Protein Nutritional Supplement 16 GM 1 OUNCE PACKET PO ×2 (07:53→20:37)
[2021-06-28] MEDS: Polyethylene Glycol 3350 17 GM PACKET PO (07:54)
[2021-06-28] MEDS: Lidocaine 5% Patch 2 PATCH TP (07:54)
[2021-06-28] MEDS: Normal Saline Flush 10 ML SYR IVP ×5 (07:55→20:39)
[2021-06-28] MEDS: Fluticasone NASAL SPRAY 16 GM BTL NS (10:21)
[2021-06-28 12:38] LABS: Abs Immature Grans 0.02 10^3/uL (0.0-0.06); Absolute Basophil Count 0.02 10^3/uL (0.0-0.2); Absolute Eosinophil Count 0.35 10^3/uL (0.0-0.7); Absolute Lymphocyte Count 1.41 10^3/uL (1.2-3.4); Absolute Monocyte Count 0.54 10^3/uL (0.1-0.8); Absolute Neutrophil Count 4.44 10^3/uL (1.2-6.7); Basophils % 0.3; Eosinophils % 5.2; HCT 36.3 % (40.0-50.0); HGB 11.5 g/dL (13.5-17.5); Immature Grans % 0.3; Lymphocytes % 20.8; MCH 28.2 pg (27.0-33.0); MCHC 31.7 % (32.0-36.0); Neutrophils % 65.4; Nucleated RBC 0 %; Platelet Count 205 10^3/uL (130-400); RBC 4.08 10^6/uL (4.36-5.78); RDW 14.3 % (11.8-14.1); RDW-SD 46.4 fL; WBC 6.78 10^3/uL (4.4-10.8)
[2021-06-28 12:48] LABS: Anion Gap 4.4 mmol/L (3-11); BUN 29 mg/dL (7-18); CO2 30.6 mmol/L (21.0-32.0); CREATININE 0.7 mg/dL (0.70-1.30); Chloride 105 mmol/L (98-107); Glucose 127 mg/dL (74-106); Sodium 140 mmol/L (136-145)
--- NOTE | 2021-06-28 15:05 | W.NUTCONSULT ---
Date of service: 06/28/21 Time of Service: 15:05 Nutritional Consult ASSESSMENT: Favio remains on Med/Surg with acute osteomylitis, now with wounds on both tuberoscities. Recovering from recent encephalopathy and back to base line. Awaiting updated prealbumin to assess nutritional status. Meds include MVI, Vit C 500 mg BID Estimated Needs: [id number] kcal, 120 g protein, 2500 ml fluid. Current intake meeting 100% nutrient and fluid needs. Diet supplemented with liquid protein ( 1 oz BID), Ensure Clear TID, Boost Pudding TID to meet high protein intake needs for optimal healing. Wound healing not optimal per medical notes. NUTRITIONAL DIAGNOSIS: Increased nutrient needs in view of pressure wounds/osteomylitis on sacrum INTERVENTION: regular diet supplemented with ensure clear TID, Boost Pudding TID, liquid protein 1 oz BID MONITORING AND EVALUATION: will monitor labs, weight, po intake. Time Spent in Nutritional Counseling and Treatment: 0
--- NOTE | 2021-06-28 16:28 | W.PM.PROGNOT ---
Date of Service Date of service: 06/28/21 Time of Service: 13:00 Assessment and Plan Assessment and plan (1) Hypercalcemia: Start date: 06/28/21 Start time: 16:48 Status: Acute Assessment and plan: Calcium level 12, give aggressive IVF @ 200 ml/h with IM injection will repeat level in am (2) Encephalopathy: Start date: 06/28/21 Start time: 16:41 Status: Acute Assessment and plan: worsening mental status with hallucinations No evidence of infectious process. Considering increased fentanyl level while on diflucan (which has now been stopped) and/or psychiatric process. Restarted fentanyl at a 25mcg patch (3) Acute osteomyelitis of sacrum: Start date: 06/28/21 Start time: 16:42 Status: Chronic Assessment and plan: continue cefazolin and daptomycin wound care Will require 6 weeks due to new osteo bilateral (4) Neurogenic bladder: Start date: 06/28/21 Start time: 16:43 Status: Chronic Assessment and plan: on 06/[address] Molina we will need monthly changes (5) Major depressive disorder: Start date: 06/28/21 Start time: 16:43 Status: Chronic Assessment and plan: Hold cymbaltal, valium, buspar, will try benadryl and ativan for seratonin syndrome as this is a concern though not convinced this is SS. Will also order CRP, lactate, procal Qualifiers: Major depression recurrence: single episode Active/Remission status: currently active Major depression episode severity: moderate Qualified Code(s): F32.1 - Major depressive disorder, single episode, moderate (6) S/P colostomy: Start date: 06/28/21 Start time: 16:51 Status: Chronic Assessment and plan: Looks well. Stooling without difficulty (7) Quadriplegia: Start date: 06/28/21 Start time: 16:52 Status: Chronic Assessment and plan: He is starting to slowly move more of his digits. He has appt with [facility] on appt changed to jul (8) DVT (deep venous thrombosis): Start date: 06/28/21 Start time: 16:52 Status: Chronic Assessment and plan: apixaban restarted LP was not done as neuro did not feel this was necessary Qualifiers: DVT location: lower extremity Affected thrombotic vein of extremity: femoral Chronicity: acute Laterality: right Qualified Code(s): I82.411 - Acute embolism and thrombosis of right femoral vein (9) Discharge planning issues: Start date: 06/28/21 Start time: 17:00 Status: Acute Assessment and plan: He is on m/s He would benefit from tertiary care, will work on this. discussed with Dr. barreto Subjective Subjective Interval history since last seen: Patient is having intermittent confusion, severe hullicinations, these have been worse since he left this weekend and visited with family, no known, etiology. Question seritonin syndrome. At this time hold, valium, buspar, cymbalata, give benadryl and ativan, doubt SS, however unsure source of confusion and it is worsening. CRP, Lactate, Procal, ordered. Continue to monitor. Exam Const General: comfortable, no acute distress and frail appearing Nutritional Appearance: thin Eyes General: appearance normal, both eyes and all related structures Sclera: sclerae normal Resp Effort & Inspection: normal respiratory effort Auscultation: clear to auscultation bilaterally Cardio Rate: regular rate Rhythm: regular rhythm GI Palpation: soft and nontender Skin General skin exam: no rashes or lesions noted Neuro General: patient confused Extrem General: no pedal edema and no calf tenderness Psych Mood: congruent mood Affect: normal affect Other: hallucinating Objective Last Vital Signs Temp 36.7 C 06/28/21 15:27 Pulse 76 06/28/21 15:27 Resp 16 06/28/21 15:27 BP 134/78 06/28/21 15:27 Pulse Ox 95 06/28/21 15:27 Laboratory Results - last 24 hr 06/28/21 06/28/21 06/28/21 10:49 10:49 12:30 WBC Cancelled RBC Cancelled Hgb Cancelled Hct Cancelled MCV Cancelled MCH Cancelled MCHC Cancelled RDW Cancelled Plt Count Cancelled MPV Cancelled Immature Gran % Cancelled Neutrophils % Cancelled Band Neutrophils % Cancelled Lymphocytes % Cancelled Atypical Lymphs % Cancelled Monocytes % Cancelled Eosinophils % Cancelled Basophils % Cancelled Metamyelocytes % Cancelled Myelocytes % Cancelled Promyelocytes % Cancelled Other Cells % Cancelled Nucleated RBC % Cancelled Absolute Neutrophils Cancelled Absolute Lymphocytes Cancelled Absolute Monocytes Cancelled Absolute Eosinophils Cancelled Absolute Basophils Cancelled RBC Morphology Cancelled Polychromasia Cancelled Hypochromasia Cancelled Poikilocytosis Cancelled Basophilic Stippling Cancelled Anisocytosis Cancelled Microcytosis Cancelled Macrocytosis Cancelled Spherocytes Cancelled Tear Drop Cells Cancelled Ovalocytes Cancelled Stomatocytes Cancelled [place] Bodies Cancelled Dean Cells/Echinocytes Cancelled Acanthocytes (Spur) Cancelled Schistocytes Cancelled Sodium Cancelled 140 Potassium Cancelled 4.0 Chloride Cancelled 105 Carbon Dioxide Cancelled 30.6 Anion Gap Cancelled 4.4 BUN Cancelled 29 H Creatinine Cancelled 0.7 Estimated GFR/1.73 m2 Cancelled >= 60.00 Glucose Cancelled 127 H Calcium Cancelled 12.0 H* 06/28/21 12:30 WBC 6.78 RBC 4.08 L Hgb 11.5 L Hct 36.3 L MCV 89.0 MCH 28.2 MCHC 31.7 L RDW 14.3 H Plt Count 205 MPV 10.0 Immature Gran % 0.3 Neutrophils % 65.4 Band Neutrophils % Lymphocytes % 20.8 Atypical Lymphs % Monocytes % 8.0 Eosinophils % 5.2 Basophils % 0.3 Metamyelocytes % Myelocytes % Promyelocytes % Other Cells % Nucleated RBC % 0 Absolute Neutrophils 4.44 Absolute Lymphocytes 1.41 Absolute Monocytes 0.54 Absolute Eosinophils 0.35 Absolute Basophils 0.02 RBC Morphology Polychromasia Hypochromasia Poikilocytosis Basophilic Stippling Anisocytosis Microcytosis Macrocytosis Spherocytes Tear Drop Cells Ovalocytes Stomatocytes [place] Bodies Dean Cells/Echinocytes Acanthocytes (Spur) Schistocytes Sodium Potassium Chloride Carbon Dioxide Anion Gap BUN Creatinine Estimated GFR/1.73 m2 Glucose Calcium
[2021-06-28] MEDS: LORazepam 2 MG/ML VIAL 1 MG IVP (16:54)
[2021-06-28] MEDS: diphenhydrAMINE 50 MG/ML VIAL IVP (16:54)
[2021-06-28] MEDS: Normal Saline 250 ML 200 ML IV (17:06)
--- NOTE | 2021-06-28 17:23 | PDOC.CMPRO ---
- If Service Date Differs Date of service: 06/28/21 Time of Service: 17:24 Care Management Progress Note S/O:Favio was lying in bed when CM met with him. He remains confused although he did recognize CM and identified her by name. Favio talked about the baby being born and the fish hooks on the bed, seeming to indicate that he is hallucinating. Nicki informed CM that his son has had 2 psychotic breaks requiring hospitalization in the past. This information was given to the provider today and a psychiatric coinsult is being considered.The provider is also ruling out serotonin syndrome and has discontinued some medications and added others. CM continues to follow. A: Favio is a 56 year old man admitted on 02/22/21 with constipation. He has had a complicated course which has included several SB-1 stays as well as acute admissions. P: Favio condition has improved. He is clearer mentally and was transferred back to [facility]. 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 CM willl continue to support Favio, his family and assess for discharge planning considerations.
[2021-06-28] MEDS: Calcitonin-Salmon 400 UNITS/2 ML VIAL IM (17:28)
[2021-06-28 18:23] LABS: Bilirubin Negative (Negative); Blood Negative (Negative); Clarity Clear (Clear); Glucose Negative (Negative); Ketones Negative (Negative); Leukocyte Esterase Negative (Negative); Nitrite Negative (Negative); Urobilinogen 0.2 EU/dL (Up TO 0.2)
--- NOTE | 2021-06-28 18:38 | NUR.NOTE ---
Nursing Note: At 1752 on 06/28/21, per the munitions handler supervisor, Nicki (the pt.'s friend/significant other) stopped by the desk and asked the munitions handler supervisor to pass along to the RN that the pt. was becoming agitated and frustrated with her, still seemed to have moments of confusion/hallucination, and that she was leaving for the night, but would like to be notified if the pt. ...takes a turn for the worse. At 1800 on 06/28/21, this RN entered the pt.'s room to assess the pt. following the message that the munitions handler supervisor had passed along. CERTIFIED PHYSICAL THERAPIST ASSISTANT was noted to be in the pt.'s room assisting the pt. with eating dinner. RN noted that the pt. was intermittently agitated and frustrated with the CERTIFIED PHYSICAL THERAPIST ASSISTANT while they were feeding the pt. dinner. RN also noted that what the pt. was saying in between bites of food wasn't in context and that the pt. seemed to be having confusion/hallucination. RN noted that the pt. was continuously picking at the sheets/blankets, but when questioned by the RN what they were trying to do, the pt. stated, Oh, nothing. I'm fine. RN then proceeded to disconnect the pt. from their IV fluid bolus (which was finished), performed hand hygiene, collected the urine specimen for the urinalysis that was ordered, performed hand hygiene, and then unclamped the suprapubic catheter tubing and emptied the catheter bag. RN then left the pt.'s room, performed hand hygiene, brought the urine specimen down to the laboratory, and upon returning to Med/Surg, notified the charge nurse of the pt.'s behavior and what the RN had assessed. RN will reassess as necessary.
--- NOTE | 2021-06-28 18:52 | NUR.NOTE ---
Nursing Note: Throughout the day thus far, the pt. has been noted to have moments of lucidity (completely alert and oriented x3 to person, place, and time), as well as, moments of confusion and hallucinations (visual). Upon RN's initial assessment this morning, the pt. was alert and oriented x3, and was able to respond to questions appropriately when asked. Upon RN's continued reassessments throughout the day, the pt. has been noted to become more confused with more moments of hallucinations. At approximately 1125 on 06/28/21, the RN and METAL FABRICATION SUPERVISOR entered the pt.'s room to administer medications to the pt. and to perform a bed bath. RN noted that the pt. was continuously picking at his sheets/blankets, and when the RN came up to the pt.'s bedside, the pt. stated, Look here. (Pt. noted to be pointing at the call marshall cord.) Look at this. RN asked the pt. if they would like the RN to move the call marshall, and attempted to move the call marshall cord out from underneath the pt.'s arm. Pt. stated, No. Look here. Look at this fish bowl. Look at the fish. RN reoriented the pt. and informed the pt. that there was no fish bowl in the bed with the pt. Pt. stated, Oh yeah. I guess you're right. Charge nurse was notified of pt.'s behavior and statement. Later on in the day, RN entered the pt.'s room to administer medications, and noted that the pt.'s mother, Jennifer, was in the room. Pt.'s mother stated to RN, He's saying he has a gun in the bed with him. RN assessed the pt. and the pt.'s bed and determined that there wasn't a gun in the bed with the pt. Charge nurse was notified of the pt.'s behavior and statement. Shortly thereafter, PAPER AND PULP MILL WORKER was noted to be entering the room, and the RN stopped the PAPER AND PULP MILL WORKER and notified them of the pt.'s behavior and statements from earlier in the day. PAPER AND PULP MILL WORKER took note and then continued in to the room to assess the pt. Later on in the day, RN noted that the PAPER AND PULP MILL WORKER had put in STAT orders for laboratory draws, urine specimen collection, as well as Lorazepam (Ativan) and Diphenhydramine (Benadryl). No note from PAPER AND PULP MILL WORKER was noted in the pt.'s chart yet, so RN paged the PAPER AND PULP MILL WORKER at 1628 on 06/28/21 to clarify why the STAT orders were being placed. At 1636 on 06/28/21, PAPER AND PULP MILL WORKER returned the page and called the RN. Per PAPER AND PULP MILL WORKER, PAPER AND PULP MILL WORKER had discussed with MD and pharmacist the possibility of the pt.'s condition being serotonin syndrome. PAPER AND PULP MILL WORKER stated that they had placed multiple medications on hold and that the Ativan and Benadryl would help if it is serotonin syndrome. Shortly after the phone call with the PAPER AND PULP MILL WORKER, the RN entered the pt.'s room to administer the medications, and to clamp off the suprapubic catheter tubing in order to obtain a urine specimen. Pt.'s friend/significant other, Nicki, noted to be in the room. Pt.'s friend asked the RN what was going on with the pt. and what the medications were that were being administered. RN had a lengthy discussion with the pt.'s friend regarding why the pt. was on contact precautions and why the RN was in PPE (contact precautions for ESBL/VRE in the urine), what the situation seemed to be with the pt.'s acute confusion/hallucination, that the PAPER AND PULP MILL WORKER was questioning if it is serotonin syndrome (pt.'s friend was provided with printed information on the syndrome), what the medications were and why they were being administered, and that the PAPER AND PULP MILL WORKER had ordered labs and a urine specimen to help determine what is going on with the pt. Pt.'s friend verbalized understanding and presented with a few questions that were answered. RN will reassess as necessary.
[2021-06-28 19:06] LABS: C-Reactive Protein 2.82 mg/dL (0.0-0.3)
[2021-06-28 19:22] LABS: Procalcitonin < 0.1 ng/mL
[2021-06-28] MEDS: Apixaban 5 MG TAB PO (20:38)
[2021-06-28] MEDS: Melatonin 3 MG TAB 9 MG PO (20:38)
[2021-06-28] MEDS: diphenhydrAMINE 25 MG CAP 50 MG PO (20:38)
[2021-06-28] MEDS: Haloperidol 5 MG/ML VIAL 4 MG IM (23:52)
[2021-06-29] MEDS: Normal Saline Flush 10 ML SYR IVP ×5 (04:31→21:15)
[2021-06-29] MEDS: ceFAZolin 2,000 MG in Normal Saline 100 ML 200 MG IVPB (04:32)
--- NOTE | 2021-06-29 04:47 | NUR.NOTE ---
Nursing Note: At 2325 on 06/28/2021 This RN walked in pt room and noticed pt talking to someone ([facility] naval police coxswain) on his cellphone. Officer asked pt who is the other person in room. Pt states, RN. [facility] police asked pt to talked to RN. Pt said yes. RN spoke to person in pt's cellphone who identity himself as state naval police coxswain. RN respond, Hi this is Karolyn nurse at [facility]. information systems security officer stated that pt called their phone number and told him that his is at a [employer] [facility] tied up in bed and needs help. RN told the officer that pt in hospital, and has not been feeling well. Pt screamed and said,She's lying. State [employer] police coxswain said that he is making sure there is no problem. Officer asked pt room number. RN told officer pt room number [id number], and call the hospital if need further information regarding the pt.
[2021-06-29 07:25] LABS: Abs Immature Grans 0.03 10^3/uL (0.0-0.06); Absolute Basophil Count 0.02 10^3/uL (0.0-0.2); Absolute Eosinophil Count 0.12 10^3/uL (0.0-0.7); Absolute Lymphocyte Count 1.62 10^3/uL (1.2-3.4); Absolute Monocyte Count 0.66 10^3/uL (0.1-0.8); Basophils % 0.2; Eosinophils % 1.3; HCT 35.9 % (40.0-50.0); HGB 11.7 g/dL (13.5-17.5); Immature Grans % 0.3; Lymphocytes % 17.6; MCHC 32.6 % (32.0-36.0); MCV 85.9 fL (80-95); MPV 10.7 fL (8.0-11.0); Monocytes % 7.2; Neutrophils % 73.4; Nucleated RBC 0 %; Platelet Count 242 10^3/uL (130-400); RBC 4.18 10^6/uL (4.36-5.78); RDW 14.4 % (11.8-14.1); RDW-SD 45.5 fL; WBC 9.19 10^3/uL (4.4-10.8)
[2021-06-29 07:26] LABS: Absolute Neutrophil Count 6.75 10^3/uL (1.2-6.7); Magnesium 1.7 mg/dL (1.8-2.4)
[2021-06-29 07:30] LABS: ALT 131 U/L (16-63); AST 54 U/L (15-37); Albumin 3.4 g/dL (3.4-5.0); Alkaline Phosphatase 131 U/L (46-116); Anion Gap 8.7 mmol/L (3-11); BUN 23 mg/dL (7-18); Bilirubin, Total 0.2 mg/dL (0.2-1.0); CO2 26.3 mmol/L (21.0-32.0); CREATININE 0.6 mg/dL (0.70-1.30); Calcium 10.7 mg/dL (8.5-10.1); Chloride 106 mmol/L (98-107); Glucose 136 mg/dL (74-106); Potassium 3.9 mmol/L (3.5-5.1); Sodium 141 mmol/L (136-145); Total Protein 7.6 g/dL (6.4-8.2)
[2021-06-29 07:46] LABS: D-Dimer 1214 ng/mlFEU (<500)
[2021-06-29 08:00] VITALS: BP 130/82; PULSE 87; RESP 20; TEMP 37.3; O2SAT 95
[2021-06-29] MEDS: Polyethylene Glycol 3350 17 GM PACKET PO (08:35)
[2021-06-29] MEDS: Lidocaine 5% Patch 2 PATCH TP (08:35)
[2021-06-29] MEDS: Dronabinol 2.5 MG CAP PO (08:35)
[2021-06-29] MEDS: Apixaban 5 MG TAB PO ×2 (08:36→21:10)
[2021-06-29] MEDS: Docusate Sodium 100 MG CAP PO ×3 (08:36→21:10)
[2021-06-29] MEDS: Magnesium Chloride 64 MG TABCR PO ×2 (08:36→21:10)
[2021-06-29] MEDS: Pantoprazole 40 MG TABCR PO (08:36)
[2021-06-29] MEDS: Senna TAB 2 TAB PO ×2 (08:36→21:09)
[2021-06-29] MEDS: Ascorbic Acid 500 MG TAB PO ×2 (08:36→21:10)
[2021-06-29] MEDS: Cetirizine 10 MG TAB PO (08:36)
[2021-06-29] MEDS: Multivitamin w/Minerals TAB 1 TAB PO (08:36)
[2021-06-29] MEDS: Protein Nutritional Supplement 16 GM 1 OUNCE PACKET PO ×2 (09:09→21:09)
--- NOTE | 2021-06-29 09:26 | NUR.NOTE ---
Nursing Note: At 0200 on 06/29/2021 Pt increasingly continue to show sign of visual hallucination and disorientation. Pt called state senior credit officer (see prior nurse note). Pt also use ANDREA in his cellphone to call Jamil, and left a message, denizluis carlos Jamil I'm at restaurant tied up in bed come and help me. Pt restrictive to care. Refuse staff to take his vital signs. Pt verbalized seeing a big man walking inside room. Pt also verbalized seeing a snake crawling on his sheet. Pt reports he got bit by bugs and start screaming, ouch that's hurt. Re-orient and provide assurance. Pt had come down a bit for a few seconds, but then back to being scared. Pt suspicious to every staff checking him in room. Will continue to monitor.
[2021-06-29] MEDS: MAGNESIUM SULFATE 2 GM/50 ML BAG IVPB (10:16)
[2021-06-29] MEDS: LORazepam 2 MG/ML VIAL 1 MG IVP ×3 (10:16→18:11)
[2021-06-29 10:52] LABS: Ammonia 18 umol/L (11-32)
[2021-06-29] MEDS: Fosfomycin Tromethamine 3 GM PACKET PO (10:56)
[2021-06-29] MEDS: VANCOMYCIN/WATER (PEG) 1.25 GM/250 ML BAG IV ×2 (10:56→22:40)
[2021-06-29 10:57] LABS: Creatine Kinase 42 U/L (39-308)
[2021-06-29 10:58] LABS: *AMPHETAMINES SCREEN URINE Negative (Negative); *BARBITURATES SCREEN URINE Negative (Negative); *BENZODIAZEPINES SCREEN URINE Positive (Negative); Cannabinoids THC Positive (Negative); Cocaine Screen,Urine Negative (Negative); METHADONE URINE SCREEN Negative (Negative); OPIATES URINE SCREEN Negative (Negative)
[2021-06-29 10:59] LABS: Tricyclic Antidepressants Negative (Negative)
[2021-06-29 12:25] VITALS: BP 120/60; PULSE 93; RESP 22; TEMP 36.9; O2SAT 94
[2021-06-29] MEDS: ceFAZolin 2 GM/50 ML BAG IV ×2 (12:51→21:09)
--- NOTE | 2021-06-29 13:01 | W.PM.PROGNOT ---
Date of Service Date of service: 06/29/21 Time of Service: 13:02 Assessment and Plan Assessment and plan (1) Hypercalcemia: Start date: 06/29/21 Start time: 14:42 Status: Acute Assessment and plan: calcium level improved at 10.7, will continue IVF overnight and repeat labs in am (2) Encephalopathy: Start date: 06/29/21 Start time: 16:00 Status: Acute Assessment and plan: worsening mental status with hallucinations No evidence of infectious process, UDS today positive for THC, this could explain his mental status. psych consult placed Fentanyl patch was never placed due to decreased respirations He is on ativan and valium for his hallucinations and mental status also zyprexa for combativeness as he is pulling at things thinking that there are snakes. will wait for psych input (3) Acute osteomyelitis of sacrum: Start date: 06/29/21 Start time: 16:06 Status: Chronic Assessment and plan: continue cefazolin, changed dapto to vanco and gave fasfamayocin for UTI as this could be contributing to confusion wound care Will require 6 weeks due to new osteo bilateral (4) Neurogenic bladder: Start date: 06/29/21 Start time: 16:07 Status: Chronic Assessment and plan: on 06/[address] Molina we will need monthly changes (5) Major depressive disorder: Start date: 06/29/21 Start time: 16:07 Status: Chronic Assessment and plan: Hold cymbalta,, buspar, continue to hold at this time and d/c benadryl All lab normal except elevated liver enzymes likely from dapto Qualifiers: Active/Remission status: currently active Major depression episode severity: moderate Major depression recurrence: single episode Qualified Code(s): F32.1 - Major depressive disorder, single episode, moderate (6) S/P colostomy: Start date: 06/29/21 Start time: 16:08 Status: Chronic Assessment and plan: Looks well. Stooling without difficulty (7) Quadriplegia: Start date: 06/29/21 Start time: 16:08 Status: Chronic Assessment and plan: He is starting to slowly move more of his digits. He has appt with [facility] on appt changed to jul (8) DVT (deep venous thrombosis): Start date: 08/28/21 Start time: 16:08 Status: Chronic Assessment and plan: apixaban restarted LP was not done as neuro did not feel this was necessary Qualifiers: Affected thrombotic vein of extremity: femoral Chronicity: acute DVT location: lower extremity Laterality: right Qualified Code(s): I82.411 - Acute embolism and thrombosis of right femoral vein (9) Discharge planning issues: Status: Acute Assessment and plan: He is on m/s He would benefit from tertiary care, will work on this. discussed with Dr. Murillo Subjective Subjective Patient reports: other Interval history since last seen: Severe hallucinations he recognizes ppl but c/o having snakes coming out his butt, he believes he is on a boat, he keeps seeing snakes on his stomach he is grabbing at things that are not present. UDS reveals THC in his urine today. Given all the medications he was on in addition to the THC when he was out with his family he likely could have had a psychotic break. Appears mental state is getting worse. Placed on benzos. he is getting ativan and valium to prevent benzo with drawal. Will also give zyprexa for agitation and hallucinations. Exam Const General: frail appearing and ill appearing chronically Nutritional Appearance: obese Orientation: alert and awake Limitations: other limitations (hallucinations, combative at times) [facility] Head: normal to inspection, normocephalic and atraumatic Ears: hearing grossly normal bilaterally Eyes Eyelids: eyelids normal Pupils: PERRL EOM: EOM intact bilaterally Neck Neck: normal visual inspection and no JVD Lymphatic: no lymphadenopathy noted Chest Chest: normal inspection of the chest Resp Effort & Inspection: normal respiratory effort Auscultation: clear to auscultation bilaterally Cardio Jugular venous pressure: no JVD Rhythm: regular rhythm Heart Sounds: S1 normal GI Inspection: scar (midline incision with colostomy) and other Auscultation: normal bowel sounds General: No CVA tenderness and deferred Back/Spine/Pelvis Back: no CVA tenderness Skin General skin exam: no rashes or lesions noted Neuro General: patient alert, patient awake and patient confused Cognition: abnormal cognition Speech: speech normal Gait: normal gait Extrem General: normal to inspection and edema Laterality: bilateral Psych Mental Status: other Speech and Movement: agitated and restless Mood: other Affect: other Objective Last Vital Signs Temp 36.9 C 06/29/21 12:25 Pulse 93 H 08/28/21 12:25 Resp 22 06/29/21 12:25 BP 120/60 06/29/21 12:25 Pulse Ox 94 06/29/21 12:25 Laboratory Results - last 24 hr 06/28/21 06/28/21 06/28/21 18:10 18:41 18:41 WBC RBC Hgb Hct MCV MCH MCHC RDW Plt Count MPV Immature Gran % Neutrophils % Lymphocytes % Monocytes % Eosinophils % Basophils % Nucleated RBC % Absolute Neutrophils Absolute Lymphocytes Absolute Monocytes Absolute Eosinophils Absolute Basophils D-Dimer VBG Lactate 1.0 Sodium Potassium Chloride Carbon Dioxide Anion Gap BUN Creatinine Estimated GFR/1.73 m2 Glucose Calcium Magnesium Total Bilirubin AST ALT Alkaline Phosphatase Ammonia Creatine Kinase C-Reactive Protein 2.82 H Total Protein Albumin Procalcitonin < 0.1 Urine Color Yellow Urine Clarity Clear Urine pH 7.0 Ur Specific [place] 1.020 Urine Protein Negative Urine Ketones Negative Urine Blood Negative Urine Nitrite Negative Urine Bilirubin Negative Urine Urobilinogen 0.2 Ur Leukocyte Esterase Negative Urine Glucose Negative Urine Opiates Screen Urine Methadone Screen Ur Barbiturates Screen Ur Tricyclics Screen Ur Amphetamines Screen U Benzodiazepines Scrn Urine Cocaine Screen Ur THC Screen 06/29/21 06/29/21 06/29/21 06:30 06:30 06:30 WBC RBC Hgb Hct MCV MCH MCHC RDW Plt Count MPV Immature Gran % Neutrophils % Lymphocytes % Monocytes % Eosinophils % Basophils % Nucleated RBC % Absolute Neutrophils Absolute Lymphocytes Absolute Monocytes Absolute Eosinophils Absolute Basophils D-Dimer 1214 H VBG Lactate Sodium 141 Potassium 3.9 Chloride 106 Carbon Dioxide 26.3 Anion Gap 8.7 BUN 23 H Creatinine 0.6 L Estimated GFR/1.73 m2 >= 60.00 Glucose 136 H Calcium 10.7 H Magnesium 1.7 L Total Bilirubin 0.2 AST 54 H ALT 131 H Alkaline Phosphatase 131 H Ammonia Creatine Kinase C-Reactive Protein Total Protein 7.6 Albumin 3.4 Procalcitonin Urine Color Urine Clarity Urine pH Ur Specific [place] Urine Protein Urine Ketones Urine Blood Urine Nitrite Urine Bilirubin Urine Urobilinogen Ur Leukocyte Esterase Urine Glucose Urine Opiates Screen Urine Methadone Screen Ur Barbiturates Screen Ur Tricyclics Screen Ur Amphetamines Screen U Benzodiazepines Scrn Urine Cocaine Screen Ur THC Screen 06/29/21 06/29/21 06/29/21 06:30 10:15 10:32 WBC 9.19 D RBC 4.18 L Hgb 11.7 L Hct 35.9 L MCV 85.9 D MCH 28.0 MCHC 32.6 RDW 14.4 H Plt Count 242 MPV 10.7 Immature Gran % 0.3 Neutrophils % 73.4 Lymphocytes % 17.6 Monocytes % 7.2 Eosinophils % 1.3 Basophils % 0.2 Nucleated RBC % 0 Absolute Neutrophils 6.75 H Absolute Lymphocytes 1.62 Absolute Monocytes 0.66 Absolute Eosinophils 0.12 Absolute Basophils 0.02 D-Dimer VBG Lactate Sodium Potassium Chloride Carbon Dioxide Anion Gap BUN Creatinine Estimated GFR/1.73 m2 Glucose Calcium Magnesium Total Bilirubin AST ALT Alkaline Phosphatase Ammonia 18 Creatine Kinase C-Reactive Protein Total Protein Albumin Procalcitonin Urine Color Urine Clarity Urine pH Ur Specific [place] Urine Protein Urine Ketones Urine Blood Urine Nitrite Urine Bilirubin Urine Urobilinogen Ur Leukocyte Esterase Urine Glucose Urine Opiates Screen Negative Urine Methadone Screen Negative Ur Barbiturates Screen Negative Ur Tricyclics Screen Negative Ur Amphetamines Screen Negative U Benzodiazepines Scrn Positive A Urine Cocaine Screen Negative Ur THC Screen Positive A 06/29/21 10:32 WBC RBC Hgb Hct MCV MCH MCHC RDW Plt Count MPV Immature Gran % Neutrophils % Lymphocytes % Monocytes % Eosinophils % Basophils % Nucleated RBC % Absolute Neutrophils Absolute Lymphocytes Absolute Monocytes Absolute Eosinophils Absolute Basophils D-Dimer VBG Lactate Sodium Potassium Chloride Carbon Dioxide Anion Gap BUN Creatinine Estimated GFR/1.73 m2 Glucose Calcium Magnesium Total Bilirubin AST ALT Alkaline Phosphatase Ammonia Creatine Kinase 42 C-Reactive Protein Total Protein Albumin Procalcitonin Urine Color Urine Clarity Urine pH Ur Specific [place] Urine Protein Urine Ketones Urine Blood Urine Nitrite Urine Bilirubin Urine Urobilinogen Ur Leukocyte Esterase Urine Glucose Urine Opiates Screen Urine Methadone Screen Ur Barbiturates Screen Ur Tricyclics Screen Ur Amphetamines Screen U Benzodiazepines Scrn Urine Cocaine Screen Ur THC Screen
[2021-06-29] MEDS: diazePAM 2 MG TAB PO ×2 (14:02→21:10)
[2021-06-29] MEDS: OLANZapine 10 MG, OLANZapine 5 MG 15 MG PO (14:41)
[2021-06-29 15:50] VITALS: BP 131/88; PULSE 91; RESP 20; TEMP 36.7; O2SAT 95
[2021-06-29] MEDS: Acetaminophen 500 MG TAB 1000 MG PO (18:10)
[2021-06-29 19:20] VITALS: BP 134/98; PULSE 84; RESP 20; TEMP 36.8; O2SAT 98
[2021-06-29] MEDS: Melatonin 3 MG TAB 9 MG PO (21:09)
[2021-06-30 03:17] VITALS: BP 135/89; PULSE 71; RESP 18; TEMP 36.3; O2SAT 97
[2021-06-30] MEDS: ceFAZolin 2 GM/50 ML BAG IV ×2 (03:31→11:38)
[2021-06-30] MEDS: Acetaminophen 500 MG TAB 1000 MG PO ×3 (03:31→18:15)
[2021-06-30 07:06] LABS: Abs Immature Grans 0.03 10^3/uL (0.0-0.06); Absolute Basophil Count 0.03 10^3/uL (0.0-0.2); Absolute Eosinophil Count 0.21 10^3/uL (0.0-0.7); Absolute Lymphocyte Count 1.24 10^3/uL (1.2-3.4); Absolute Monocyte Count 0.67 10^3/uL (0.1-0.8); Absolute Neutrophil Count 5.45 10^3/uL (1.2-6.7); Basophils % 0.4; Eosinophils % 2.8; HGB 12.3 g/dL (13.5-17.5); Immature Grans % 0.4; Lymphocytes % 16.3; MCH 27.8 pg (27.0-33.0); MCHC 32.4 % (32.0-36.0); MCV 85.8 fL (80-95); MPV 9.8 fL (8.0-11.0); Monocytes % 8.8; Neutrophils % 71.3; Nucleated RBC 0 %; Platelet Count 211 10^3/uL (130-400); RBC 4.43 10^6/uL (4.36-5.78); RDW 14.3 % (11.8-14.1); RDW-SD 44.9 fL; WBC 7.63 10^3/uL (4.4-10.8)
[2021-06-30 07:42] LABS: Anion Gap 10.1 mmol/L (3-11); BUN 20 mg/dL (7-18); CO2 24.9 mmol/L (21.0-32.0); CREATININE 0.6 mg/dL (0.70-1.30); Calcium 10.7 mg/dL (8.5-10.1); Chloride 107 mmol/L (98-107); Glucose 117 mg/dL (74-106); Potassium 3.8 mmol/L (3.5-5.1); Sodium 142 mmol/L (136-145)
[2021-06-30 07:48] LABS: Magnesium 1.6 mg/dL (1.8-2.4)
[2021-06-30] MEDS: diazePAM 2 MG TAB PO (07:50)
[2021-06-30] MEDS: Cetirizine 10 MG TAB PO (07:50)
[2021-06-30] MEDS: Magnesium Chloride 64 MG TABCR PO ×2 (07:50→20:21)
[2021-06-30] MEDS: Docusate Sodium 100 MG CAP PO ×2 (07:50→20:21)
[2021-06-30] MEDS: Senna TAB 2 TAB PO ×2 (07:50→20:21)
[2021-06-30] MEDS: Ascorbic Acid 500 MG TAB PO ×2 (07:50→20:22)
[2021-06-30] MEDS: Apixaban 5 MG TAB PO ×2 (07:51→20:22)
[2021-06-30] MEDS: OLANZapine 5 MG TAB PO (07:51)
[2021-06-30] MEDS: Pantoprazole 40 MG TABCR PO (07:51)
[2021-06-30] MEDS: Multivitamin w/Minerals TAB 1 TAB PO (07:52)
[2021-06-30] MEDS: Protein Nutritional Supplement 16 GM 1 OUNCE PACKET PO ×2 (07:52→20:20)
[2021-06-30] MEDS: Polyethylene Glycol 3350 17 GM PACKET PO (07:52)
[2021-06-30] MEDS: Normal Saline Flush 10 ML SYR IVP (07:52)
[2021-06-30] MEDS: Lidocaine 5% Patch 2 PATCH TP (07:52)
[2021-06-30 08:20] VITALS: BP 138/94; PULSE 76; RESP 20; TEMP 36.5; O2SAT 96
[2021-06-30] MEDS: amLODIPine 10 MG TAB PO (10:00)
[2021-06-30] MEDS: VANCOMYCIN/WATER (PEG) 1.25 GM/250 ML BAG IV ×2 (10:00→22:18)
[2021-06-30] MEDS: Normal Saline 500 ML 30 ML IV (10:00)
[2021-06-30 11:06] VITALS: BP 124/69; PULSE 71; RESP 20; TEMP 36.5; O2SAT 96
--- NOTE | 2021-06-30 11:52 | PGE_ITS ---
Date of Service Date of service: 06/30/21 Time of Service: 11:52 Assessment and Plan Assessment and plan (1) Delirium: Start date: 06/30/21 Start time: 11:00 Status: Acute Assessment and plan: Patient is severely confused, does not recognize provider today. combative at times, using swear words with staff, hallucinating, Dr. Smiley to review chart this evening and will have visit with him tomorrow. Haldol given for severe combativeness and hallucinations with anxiety Zyprexa as needed seroquel for sleep and Ambien this may help with some of his delusions (2) Hypercalcemia: Start date: 06/30/21 Start time: 11:00 Status: Acute Assessment and plan: calcium level improved at 10.7, will continue IVF overnight NS @ 150 (3) Encephalopathy: Start date: 06/30/21 Start time: 13:51 Status: Acute Assessment and plan: worsening mental status with hallucinations No evidence of infectious process, UDS today positive for THC, this could explain his mental status. Fentanyl patch on hold continue valium as above ammonia level normal (4) Acute osteomyelitis of sacrum: Start date: 06/30/21 Start time: 11:00 Status: Chronic Assessment and plan: continue cefazolin, changed dapto to vanco and gave fasfamayocin for UTI as this could be contributing to confusion wound care Will require 6 weeks due to new osteo bilateral (5) Neurogenic bladder: Start date: 06/30/21 Start time: 11:00 Status: Chronic Assessment and plan: on 06/[address] Molina we will need monthly changes (6) Major depressive disorder: Start date: 06/30/21 Start time: 11:00 Status: Chronic Assessment and plan: Hold cymbalta, buspar, continue to hold at this time and d/c benadryl, All lab normal except elevated liver enzymes likely from dapto Qualifiers: Major depression recurrence: single episode Active/Remission status: currently active Major depression episode severity: moderate Qualified Code(s): F32.1 - Major depressive disorder, single episode, moderate (7) S/P colostomy: Start date: 06/30/21 Start time: 11:00 Status: Chronic Assessment and plan: Looks well. Stooling without difficulty (8) Quadriplegia: Start date: 06/30/21 Start time: 13:54 Status: Chronic Assessment and plan: He is starting to slowly move more of his digits. He has appt with [facility] on appt changed to jul (9) DVT (deep venous thrombosis): Start date: 06/30/21 Start time: 11:00 Status: Chronic Assessment and plan: apixaban restarted LP was not done as neuro did not feel this was necessary Qualifiers: DVT location: lower extremity Affected thrombotic vein of extremity: femoral Chronicity: acute Laterality: right Qualified Code(s): I82.411 - Acute embolism and thrombosis of right femoral vein (10) Discharge planning issues: Start date: 06/30/21 Start time: 11:00 Status: Acute Assessment and plan: He is on m/s He would benefit from tertiary care, will work on this. discussed with Dr. Murillo Subjective Subjective Patient reports: other Interval history since last seen: aFvio is very confused today. Worse than he has been. He does not recognize me. Question of deliurium. Dr[facility] Sm[facility] will review chart today and likely see him tomorrow. He is swearing at nursing today seeing things not present. He did not sleep last night which will make psychosis and delirium worse. THC positive in urine. Mother concerned about possible issues with ex- and son giving patient THC. Will have [facility] see him via video in am. At this time he is very hallucinogenic and talking about being in an ambulance, having copper wire in is arms. He was given a dose of haldol to help he will also be given a dose of seroquel and ambien for sleep as I think sleep too is a factor in his delirium and hallucinations. Exam Const General: uncooperative, frail appearing and ill appearing chronically Nutritional Appearance: obese and thin Orientation: alert and awake Limitations: other limitations (hallucinations, combative at times) [facility] Head: normal to inspection, normocephalic and atraumatic Ears: hearing grossly normal bilaterally Eyes General: appearance normal, both eyes and all related structures Eyelids: eyelids normal Sclera: sclerae normal Pupils: PERRL EOM: EOM intact bilaterally Neck Neck: normal visual inspection and no JVD Lymphatic: no lymphadenopathy noted Chest Chest: normal inspection of the chest Resp Effort & Inspection: normal respiratory effort Auscultation: clear to auscultation bilaterally Cardio Jugular venous pressure: no JVD Rate: regular rate Rhythm: regular rhythm Heart Sounds: S1 normal GI Inspection: scar (midline incision with colostomy) and other Palpation: soft and nontender Auscultation: normal bowel sounds General: No CVA tenderness and deferred Back/Spine/Pelvis Back: no CVA tenderness Skin General skin exam: no rashes or lesions noted Neuro General: patient alert, patient awake and patient confused Cognition: abnormal cognition Speech: speech normal Gait: normal gait Extrem General: normal to inspection, no pedal edema, no calf tenderness and edema Laterality: bilateral Psych Mental Status: other Speech and Movement: agitated and restless Mood: congruent mood and other Affect: normal affect and other Objective Last Vital Signs Temp 36.5 C 06/30/21 11:06 Pulse 71 06/30/21 11:06 Resp 20 06/30/21 11:06 BP 124/69 06/30/21 11:06 Pulse Ox 96 06/30/21 11:06 Laboratory Results - last 24 hr 06/30/21 06/30/21 06/30/21 06:40 06:40 06:40 WBC 7.63 RBC 4.43 Hgb 12.3 L Hct 38.0 L MCV 85.8 MCH 27.8 MCHC 32.4 RDW 14.3 H Plt Count 211 MPV 9.8 Immature Gran % 0.4 Neutrophils % 71.3 Lymphocytes % 16.3 Monocytes % 8.8 Eosinophils % 2.8 Basophils % 0.4 Nucleated RBC % 0 Absolute Neutrophils 5.45 Absolute Lymphocytes 1.24 Absolute Monocytes 0.67 Absolute Eosinophils 0.21 Absolute Basophils 0.03 Sodium 142 Potassium 3.8 Chloride 107 Carbon Dioxide 24.9 Anion Gap 10.1 BUN 20 H Creatinine 0.6 L Estimated GFR/1.73 m2 >= 60.00 Glucose 117 H Calcium 10.7 H Magnesium 1.6 L
[2021-06-30] MEDS: Haloperidol 5 MG/ML VIAL 4 MG IM (13:27)
[2021-06-30 15:30] VITALS: BP 135/82; PULSE 74; RESP 19; TEMP 36.4; O2SAT 96
[2021-06-30] MEDS: Normal Saline 1,000 ML 150 ML IV (16:31)
[2021-06-30] MEDS: ceFAZolin 2,000 MG in Normal Saline 100 ML 200 MG IVPB (20:20)
[2021-06-30] MEDS: Zolpidem 6.25 MG TABCR PO (20:21)
[2021-06-30] MEDS: Melatonin 3 MG TAB 9 MG PO (20:21)
[2021-06-30] MEDS: diazePAM 5 MG TAB PO (20:22)
[2021-06-30 20:31] VITALS: BP 124/63; PULSE 73; RESP 16; TEMP 36.2; O2SAT 93
[2021-06-30] MEDS: QUEtiapine 50 MG TAB PO (22:18)
[2021-07-01] VITALS (7 sets, daily range): BP systolic 109–143; BP diastolic 59–89; PULSE 67–91; RESP 16–19; TEMP 36–38.1; O2SAT 92–97
[2021-07-01] MEDS: Normal Saline 1,000 ML 150 ML IV ×3 (00:52→18:21)
[2021-07-01] MEDS: ceFAZolin 2,000 MG in Normal Saline 100 ML 200 MG IVPB ×3 (04:26→21:11)
[2021-07-01 07:23] LABS: Abs Immature Grans 0.02 10^3/uL (0.0-0.06); Absolute Basophil Count 0.03 10^3/uL (0.0-0.2); Absolute Eosinophil Count 0.19 10^3/uL (0.0-0.7); Absolute Lymphocyte Count 1.48 10^3/uL (1.2-3.4); Absolute Monocyte Count 0.61 10^3/uL (0.1-0.8); Absolute Neutrophil Count 4.32 10^3/uL (1.2-6.7); Basophils % 0.5; Eosinophils % 2.9; HCT 32.1 % (40.0-50.0); HGB 10.3 g/dL (13.5-17.5); Immature Grans % 0.3; Lymphocytes % 22.3; MCH 28.2 pg (27.0-33.0); MCHC 32.1 % (32.0-36.0); MCV 87.9 fL (80-95); Monocytes % 9.2; Neutrophils % 64.8; Nucleated RBC 0 %; Platelet Count 201 10^3/uL (130-400); RBC 3.65 10^6/uL (4.36-5.78); RDW 14.4 % (11.8-14.1); RDW-SD 46.6 fL; WBC 6.65 10^3/uL (4.4-10.8)
[2021-07-01] MEDS: Polyethylene Glycol 3350 17 GM PACKET PO (08:24)
[2021-07-01] MEDS: Protein Nutritional Supplement 16 GM 1 OUNCE PACKET PO ×2 (08:24→21:11)
[2021-07-01] MEDS: Lidocaine 5% Patch 2 PATCH TP (08:25)
[2021-07-01] MEDS: Fluticasone NASAL SPRAY 16 GM BTL NS (08:25)
[2021-07-01] MEDS: diazePAM 5 MG TAB PO (08:26)
[2021-07-01] MEDS: Pantoprazole 40 MG TABCR PO (08:26)
[2021-07-01] MEDS: Multivitamin w/Minerals TAB 1 TAB PO (08:26)
[2021-07-01] MEDS: Apixaban 5 MG TAB PO ×2 (08:26→21:13)
[2021-07-01] MEDS: Ascorbic Acid 500 MG TAB PO ×2 (08:26→21:14)
[2021-07-01] MEDS: Magnesium Chloride 64 MG TABCR PO ×2 (08:26→21:14)
[2021-07-01] MEDS: Senna TAB 2 TAB PO ×2 (08:26→21:13)
[2021-07-01] MEDS: Docusate Sodium 100 MG CAP PO ×3 (08:26→21:14)
[2021-07-01] MEDS: Normal Saline Flush 10 ML SYR IVP ×2 (08:27→21:12)
[2021-07-01] MEDS: amLODIPine 10 MG TAB PO (08:27)
[2021-07-01 08:30] LABS: Anion Gap 11.6 mmol/L (3-11); BUN 16 mg/dL (7-18); CO2 23.4 mmol/L (21.0-32.0); CREATININE 0.5 mg/dL (0.70-1.30); Calcium 10.2 mg/dL (8.5-10.1); Chloride 111 mmol/L (98-107); Glucose 101 mg/dL (74-106); Potassium 3.8 mmol/L (3.5-5.1); Sodium 146 mmol/L (136-145)
--- NOTE | 2021-07-01 09:10 | PCPN_ITS ---
Date of service: 07/01/21 Time of Service: 07:10 Assessment and Plan Assessment and plan (1) Delirium: Status: Acute (2) Hypercalcemia: Status: Acute (3) Encephalopathy: Status: Acute (4) Quadriplegia: Status: Chronic (5) Palliative care encounter: Status: Acute Assessment and plan: Favio is much better today compared to what I was expecting after having read his recent progress notes and speaking with the staff. Hopefully he is starting to pull out of this. I agree taking him off most of his medications that could cause psych changes is really important. I would also consider taking him off the BuSpar He does have a psychiatry consult today at 1 PM. I will be interested to see that note determine further plans for reduction of his delirium. When I saw him this morning he did not have delirium. He was back to his normal self although definitely scared. I did relay this to Magi his primary hospitalist Subjective Subjective Interval history since last seen: Favio has had a very eventful week. He is a 56-year-old quadriplegic who developed encephalopathy. He has been having hallucinations some of them are very scary to him. He has been belligerent to staff which is not typical at all for him. Work-up has not really pinpointed why he has developed the symptoms, but he has been taken off numerous meds. Last night staff states that he was a little better. Today I went in to see Favio. He knew who I am, he knew he was in the hospital, he also knew that his mind was playing tricks on him. He said some of the hallucinations were really quite scary because of how real they felt. He states that he is feeling better today. Exam Narrative Exam Narrative: Favio is lying in bed. Both arms are flexed at the elbows and the wrists. He states that he can stop the shaking in his hands. His left sh oulder is bothering him. His heart is tachycardic. It is slightly irregular. His lungs diminished sounds. Abdomen nontender. He does have a suprapubic cath and a colostomy in place Objective I have reviewed numerous labs. Radiology done over the last week Last Vital Signs Temp 98.1 F 07/01/21 07:42 Pulse 80 07/01/21 07:42 Resp 18 07/01/21 07:42 BP 128/62 07/01/21 07:42 Pulse Ox 96 07/01/21 07:42 Laboratory Results - last 24 hr 07/01/21 07/01/21 07:10 07:10 WBC 6.65 RBC 3.65 L Hgb 10.3 L Hct 32.1 L MCV 87.9 MCH 28.2 MCHC 32.1 RDW 14.4 H Plt Count 201 MPV 10.0 Immature Gran % 0.3 Neutrophils % 64.8 Lymphocytes % 22.3 Monocytes % 9.2 Eosinophils % 2.9 Basophils % 0.5 Nucleated RBC % 0 Absolute Neutrophils 4.32 Absolute Lymphocytes 1.48 Absolute Monocytes 0.61 Absolute Eosinophils 0.19 Absolute Basophils 0.03 Sodium 146 H Potassium 3.8 Chloride 111 H Carbon Dioxide 23.4 Anion Gap 11.6 H BUN 16 Creatinine 0.5 L Estimated GFR/1.73 m2 >= 60.00 Glucose 101 Calcium 10.2 H
[2021-07-01] MEDS: Acetaminophen 500 MG TAB 1000 MG PO ×3 (10:24→23:41)
[2021-07-01] MEDS: VANCOMYCIN/WATER (PEG) 1.25 GM/250 ML BAG IV (10:24)
--- NOTE | 2021-07-01 12:28 | NUR.NOTE ---
Nursing Note: assessed MACHINE FINISHER concern that patient was not safe to be fed, patient is sleeping difficult to rouse and keep awake. MACHINE FINISHER will re approach patient when it is safer for patient to eat
--- NOTE | 2021-07-01 12:44 | NUR.NOTE ---
Nursing Note: Weighed patient at 160.5 pounds today. Noted that the weight on the chart for the previous 2 weights were 156 and 158 KG. Converted todays weight to KG and in the note section noted the pounds so provider can follow patients weight. Mentioned all of this to Nguyen Blackman CCC so she can be aware of the potential for discrepancy
--- NOTE | 2021-07-01 15:07 | PDOC.CMPRO ---
- If Service Date Differs Date of service: 07/01/21 Time of Service: 15:07 Care Management Progress Note S/O: Bruce was sleeping and difficult to awaken each time CM tried to meet with him. Favio would respond to gentle nudging by CM but was not awake enough to have a conversation or eat lunch today. Bruce met with Dr. Zhu for a Palliative Care Consult this morning and had a telepsych appointment with Dr. Alfaro at 1pm over the monitor. CM continues to support. A: 56 year old male admitted on 02/22/21 with constipation. He has had a complicated course which has included several SB-1 stays as well as acute admissions. P: Favio will likely transition to SWB[facility] once medically cleared. Favio's ultimate disposition remains unclear as he awaits assisted Medicaid approval. CM will continue to support Favio, his family and assess for discharge planning considerations.
[2021-07-01 16:23] LABS: Vancomycin, Trough 20.5 ug/mL (10.0-20.0)
--- NOTE | 2021-07-01 17:50 | PGE_ITS ---
Date of Service Date of service: 07/01/21 Time of Service: 30 Assessment and Plan Assessment and plan (1) Delirium: Start date: 07/01/21 Start time: 10:30 Status: Acute Assessment and plan: Evaluated by Dr. Smiley see not Recommendations followed. Slept overnight Sleepy today, not hallucinating or having issues with combativness (2) Hypercalcemia: Start date: 07/01/21 Start time: 10:30 Status: Acute Assessment and plan: calcium level improved at 10.2, will continue IVF overnight NS @ 150 (3) Encephalopathy: Start date: 07/01/21 Start time: 10:30 Status: Acute Assessment and plan: improving as above (4) Acute osteomyelitis of sacrum: Start date: 07/01/21 Start time: 10:30 Status: Chronic Assessment and plan: continue cefazolin, changed dapto to vanco and gave fasfamayocin for UTI as this could be contributing to confusion wound care Will require 6 weeks due to new osteo bilateral (5) Neurogenic bladder: Start date: 07/01/21 Start time: 10:30 Status: Chronic Assessment and plan: on 06/[address] Molina we will need monthly changes (6) Major depressive disorder: Start date: 07/01/21 Start time: 10:30 Status: Chronic Assessment and plan: Hold cymbalta, buspar, continue to hold at this time and d/c benadryl, All lab normal except elevated liver enzymes likely from dapto Qualifiers: Major depression recurrence: single episode Active/Remission status: currently active Major depression episode severity: moderate Qualified Code(s): F32.1 - Major depressive disorder, single episode, moderate (7) S/P colostomy: Start date: 07/01/21 Start time: 10:30 Status: Chronic Assessment and plan: Looks well. Stooling without difficulty (8) Quadriplegia: Start date: 07/01/21 Start time: 10:30 Status: Chronic Assessment and plan: He is starting to slowly move more of his digits. He has appt with [facility] on appt changed to sept (9) DVT (deep venous thrombosis): Start date: 07/01/21 Start time: 10:30 Status: Chronic Assessment and plan: apixaban Qualifiers: DVT location: lower extremity Affected thrombotic vein of extremity: femoral Chronicity: acute Laterality: right Qualified Code(s): I82.411 - Acute embolism and thrombosis of right femoral vein (10) Discharge planning issues: Start date: 07/01/21 Start time: 10:30 Status: Acute Assessment and plan: He is on m/s He would benefit from tertiary care, will work on this as soon as MS has cleared. discussed with Dr. Murillo Subjective Subjective Patient reports: other Interval history since last seen: Sleepy but arousable. He was seen by psychiatry and medication recommendations were made. He has not had hallucinations or combativeness since yesterday. Dr. Smiley did recommend IV Haldol at night. This was relayed to Nursing. Can ask for IM at hs. Evening provider aware. Dr. Smiley will reach out to Favio's regular psychiatrist tomorrow and follow with another visit with him tomorrow as he was too sleepy to really evaluate today. Exam Const General: comfortable, no acute distress, frail appearing, ill appearing chronically and other (sleepy) Nutritional Appearance: obese and thin Orientation: alert and awake Limitations: other limitations (hallucinations, combative at times) [facility] Head: normal to inspection, normocephalic and atraumatic Ears: hearing grossly normal bilaterally Eyes General: appearance normal, both eyes and all related structures Eyelids: eyelids normal Sclera: sclerae normal Pupils: PERRL EOM: EOM intact bilaterally Neck Neck: normal visual inspection and no JVD Lymphatic: no lymphadenopathy noted Chest Chest: normal inspection of the chest Resp Effort & Inspection: normal respiratory effort Auscultation: clear to auscultation bilaterally Cardio Jugular venous pressure: no JVD Rate: regular rate Rhythm: regular rhythm Heart Sounds: S1 normal GI Inspection: scar (midline incision with colostomy) and other Palpation: soft and nontender Auscultation: normal bowel sounds General: No CVA tenderness and deferred Back/Spine/Pelvis Back: no CVA tenderness Skin General skin exam: no rashes or lesions noted Neuro General: patient alert, patient awake and other Cognition: normal cognition (sleepy but arouses easily now knows where he is and no longer hallucinating) Speech: speech normal Gait: normal gait Extrem General: normal to inspection, no pedal edema, no calf tenderness and edema Lat erality: bilateral Psych Mental Status: other Speech and Movement: agitated and restless Mood: congruent mood and other Affect: normal affect and other Objective Last Vital Signs Temp 36.9 C 07/01/21 14:54 Pulse 73 07/01/21 14:54 Resp 19 07/01/21 14:54 BP 139/74 07/01/21 14:54 Pulse Ox 96 07/01/21 14:54 Laboratory Results - last 24 hr 07/01/21 07/01/21 07/01/21 07:10 07:10 15:52 WBC 6.65 RBC 3.65 L Hgb 10.3 L Hct 32.1 L MCV 87.9 MCH 28.2 MCHC 32.1 RDW 14.4 H Plt Count 201 MPV 10.0 Immature Gran % 0.3 Neutrophils % 64.8 Lymphocytes % 22.3 Monocytes % 9.2 Eosinophils % 2.9 Basophils % 0.5 Nucleated RBC % 0 Absolute Neutrophils 4.32 Absolute Lymphocytes 1.48 Absolute Monocytes 0.61 Absolute Eosinophils 0.19 Absolute Basophils 0.03 Sodium 146 H Potassium 3.8 Chloride 111 H Carbon Dioxide 23.4 Anion Gap 11.6 H BUN 16 Creatinine 0.5 L Estimated GFR/1.73 m2 >= 60.00 Glucose 101 Calcium 10.2 H Vancomycin Trough 20.5 H*
[2021-07-01] MEDS: VANCOMYCIN/WATER (PEG) 1 GM/200 ML BAG IV (18:22)
--- NOTE | 2021-07-01 18:49 | POCOE_ITS ---
Date of service: 07/01/21 Time of Service: 18:50 History of Present Illness History of Present Illness Chief Complaint: Pressure ulcerations right fifth metatarsal head and heel region Narrative: 56-year-old male with multiple comorbidities for management wounds of the right foot. [facility] Medical History Acute embolism and thrombosis of deep vein of right lower extremity Anxiety disorder Aspiration into airway C. difficile colitis Constipation Constipation due to neurogenic bowel Decubitus skin ulcer Decubitus ulcer of buttock, stage 4 Dislocation of C6/C7 cervical vertebrae DNR (do not resuscitate) DVT (deep venous thrombosis) DVT prophylaxis Encounter for wound care Fall down embankment Fusion of spine H/O deep venous thrombosis Hypokalemia Hypotension Ileus Iron deficiency anemia Large bowel obstruction Major depressive disorder Malnutrition following gastrointestinal surgery Neurogenic bladder Neurogenic bowel Open wound of abdominal wall Palliative care patient Physician orders for life-sustaining treatment (POLST) form indicates patient wish for [id number] status Quadriplegia Right arm pain Visit for wound check Surgical History S/P colostomy Social History Smoking/Tobacco Use Status: Never Smoking risk assessment performed?: Yes Alcohol Intake: current Alcohol Intake frequency: a few times a week Drug use: Occasionally Substance use type: marijuana Do you feel safe at home: Yes Do you feel safe in your relationship?: Yes Exam Narrative Exam Narrative: Bruce was awake and alert and cooperative in no acute distress. Peripheral pulses are easily palpable at the ankles, no peripheral edema, capillary refills under 3 seconds to all toes. Feet are warm to the touch. Skin is dry nails are currently benign. A partial thickness ulceration is appreciated under the right fifth metatarsal head. No cellulitis observed. The base of the wound has a necrotic region of undetermined thickness measuring 8 to 10 mm with a secondary area of low-grade erythema adding an additional 5 mm to the wound. A small blisterlike region is noted just proximal to the wound and is continuous. There is no active signs of infection. He had a large eschar affecting the plantar aspect of the right heel which did not display any fluctuant or active signs of infection. The left foot was grade 0 Muscle groups 0 out of 5 Skeletal exam appeared grossly benign at this time. Impressions: Neuropathic wounds right fifth metatarsal head and central plantar heel region right foot Plan: With a #10 scalpel both wounds were sharply debrided. The region under the fifth metatarsal head was partial thickness but I was unable to remove all of the devitalized tissue around the wound periphery and will use chemical debridement to continue with that effect. I was able to completely remove the necrotic appearing region of the heel which then revealed nice pink healthy tissue without breakdown. I will use collagenase Santyl over the region of the fifth metatarsal head with a normal saline wet-to-dry dressing and I will utilize a Mepilex dressing on the heel for 48 additional hours and then discontinue unless there are signs of recu rrent breakdown. Thank you for this consultation Results Last Vital Signs Temp 36.9 C 07/01/21 14:54 Pulse 73 07/01/21 14:54 Resp 19 07/01/21 14:54 BP 139/74 07/01/21 14:54 Pulse Ox 96 07/01/21 14:54 Labs Result diagrams: 07/01/21 07:10 07/01/21 07:10 Labs: Laboratory Results - last 24 hr 07/01/21 07/01/21 07/01/21 07:10 07:10 15:52 WBC 6.65 RBC 3.65 L Hgb 10.3 L Hct 32.1 L MCV 87.9 MCH 28.2 MCHC 32.1 RDW 14.4 H Plt Count 201 MPV 10.0 Immature Gran % 0.3 Neutrophils % 64.8 Lymphocytes % 22.3 Monocytes % 9.2 Eosinophils % 2.9 Basophils % 0.5 Nucleated RBC % 0 Absolute Neutrophils 4.32 Absolute Lymphocytes 1.48 Absolute Monocytes 0.61 Absolute Eosinophils 0.19 Absolute Basophils 0.03 Sodium 146 H Potassium 3.8 Chloride 111 H Carbon Dioxide 23.4 Anion Gap 11.6 H BUN 16 Creatinine 0.5 L Estimated GFR/1.73 m2 >= 60.00 Glucose 101 Calcium 10.2 H Vancomycin Trough 20.5 H*
--- NOTE | 2021-07-01 20:55 | PSYCO_ITS ---
Date of service: 07/01/21 Time of Service: 13:00 History of Present Illness History of Present Illness Chief Complaint: Altered mental status Narrative: 24 Hour Telepsychiatry consultation requested by Magi Tolliver for evaluation of ongoing altered mental status. His medical history is lengthy and complicated. In summary, he was admitted to med/surg months ago secondary to decubitus ulcers resulting from quadriplegia. His hospital course has been complicated by osteomyelitis, multiple bowel obstructions, the need for an ostomy, subsequent revision, and subsequent take down. His pain needs have been considerable and required modereate to high doses of opioids to effectively manage oain. Anxiety and agitation have also been considerable and he has received benzodiazepines for this. Neurology consultation on 06/25 has resulted in tapering of numerous centrally acting agents that could be delioriogenic. He has been noted for periods of excessive sedation, variable orientation. He has visual hallucinations intermittently, and has delusional perceptions. there have been periods of extreme agitation, dysregulation, and combativeness requiring emergency haloperidol, which resulted in effectively promoting calm. His psychiatric history is uncleawr, but it is reported he has a history of PTSD as well as past suicide attempts. It is reported he is in the psychiatric care of Dr. Celis of [place], [place]. On exam today, he is quite somnalent, rouses only briefly to loud voice. He is oriented to person, place, and time. He is too somnalent to provide any details of his recent or distant medical or psychiatric history. Assessment and Plan Assessment and plan (1) Delirium: Status: Acute Assessment and plan: Mostly likely etiology for his current presentation is delirium, mostly likely of a toxic/metabolic etiology. His excessive daytime somnalence and night time arousal suggest possible derangement of circadian rhythms, though more likely an asynchrous waxing and waning of level of alertness associated with delirium. His agitation and perceptual disturbances are also highly suggestive of a delirium process. Considerable progress has be en made in limiting potentially deliriogenic agents, though strongly VIJAY-ergic agents, diazepam, and gabapentin may continue to exert a strongly disorienteing effect, particularly given the long half life and active metabolite of diazepam. No notably anticholinergic agents are currently in use. Recommendations 1) taper and discontinue diazepam -Decrease standing dose to 2 mg TID, decrease daily dose by 2 mg Q48-72 hours from there 2) decrease gabapentin to 100 mg TID 3) insomnia/gitation: haloperidol 5 mg QHS for nighttime agitation 4) Extreme agitation: if emergency procedures are required for combative and dangerous behavior, consider haloperidol 5 mg IM (refrain from concomittant use of benzodiazepine an/or antihistamines) 5) follow up: will follow up in 48 hours; if notable deterioration in condition occurs, please feel free to contact me for further evaluation. Thank you for the opportunity to participate in the care of your patient. Review of Systems Unobtainable due to mental status and Unobtainable due to [facility] Medical History Acute embolism and thrombosis of deep vein of right lower extremity Anxiety disorder Aspiration into airway C. difficile colitis Constipation Constipation due to neurogenic bowel Decubitus skin ulcer Decubitus ulcer of buttock, stage 4 Dislocation of C6/C7 cervical vertebrae DNR (do not resuscitate) DVT (deep venous thrombosis) DVT prophylaxis Encounter for wound care Fall down embankment Fusion of spine H/O deep venous thrombosis Hypokalemia Hypotension Ileus Iron deficiency anemia Large bowel obstruction Major depressive disorder Malnutrition following gastrointestinal surgery Neurogenic bladder Neurogenic bowel Open wound of abdominal wall Palliative care patient Physician orders for life-sustaining treatment (POLST) form indicates patient wish for [id number] status Quadriplegia Right arm pain Visit for wound check Surgical History S/P colostomy Social History Smoking/Tobacco Use Status: Never Smoking risk assessment performed?: Yes Alcohol Intake: current Alcohol Intake frequency: a few times a week Drug use: Occasionally Substance use type: marijuana Do you feel safe at home: Yes Do you feel safe in your relationship?: Yes Exam Psych Appearance: disheveled and other (ashen color, somnalent, open mouth sonous, rumbling breathing pattern) Mental Status: other (oriented to person, place, time; further evalaution not possible ) Other: Exam limited by severe sonmnalence and sedation Results Last Vital Signs Temp 38.1 C H 07/01/21 19:55 Pulse 91 H 07/01/21 19:55 Resp 18 07/01/21 19:55 BP 136/85 07/01/21 19:55 Pulse Ox 97 07/01/21 19:55 Labs Result diagrams: 07/01/21 07:10 07/01/21 07:10 Labs: Laboratory Results - last 24 hr 07/01/21 07/01/21 07/01/21 07:10 07:10 15:52 WBC 6.65 RBC 3.65 L Hgb 10.3 L Hct 32.1 L MCV 87.9 MCH 28.2 MCHC 32.1 RDW 14.4 H Plt Count 201 MPV 10.0 Immature Gran % 0.3 Neutrophils % 64.8 Lymphocytes % 22.3 Monocytes % 9.2 Eosinophils % 2.9 Basophils % 0.5 Nucleated RBC % 0 Absolute Neutrophils 4.32 Absolute Lymphocytes 1.48 Absolute Monocytes 0.61 Absolute Eosinophils 0.19 Absolute Basophils 0.03 Sodium 146 H Potassium 3.8 Chloride 111 H Carbon Dioxide 23.4 Anion Gap 11.6 H BUN 16 Creatinine 0.5 L Estimated GFR/1.73 m2 >= 60.00 Glucose 101 Calcium 10.2 H Vancomycin Trough 20.5 H*
[2021-07-01] MEDS: diazePAM 2 MG TAB PO (21:13)
[2021-07-01] MEDS: Melatonin 3 MG TAB 9 MG PO (21:14)
[2021-07-02] VITALS (7 sets, daily range): BP systolic 133–157; BP diastolic 77–94; PULSE 77–88; RESP 18–19; TEMP 36.6–38.2; O2SAT 95–97
--- NOTE | 2021-07-02 | DI.RAD_ITS ---
Exam(s) XR PORTABLE CHEST AP EXAM: XR PORTABLE CHEST AP CLINICAL HISTORY: new fever TECHNIQUE: 2D digital imaging was performed. COMPARISON: CR,XR XR PORTABLE CHEST AP from 06/16/2021 FINDINGS: MEDIASTINUM: Normal. HEART: Normal. PULMONARY VASCULATURE: Normal. LUNGS: Clear. PLEURAL SPACE: No pleural effusion or pneumothorax. BONE:Within normal limits for the patient's age. Spinal rods are again seen at the cervical thoracic junction. OTHER FINDINGS:Normal. IMPRESSION: No acute pulmonary findings. DATA REPOSITORY: RADIATION DOSE DELIVERED:
[2021-07-02] MEDS: VANCOMYCIN/WATER (PEG) 1 GM/200 ML BAG IV ×3 (01:36→18:16)
[2021-07-02] MEDS: Normal Saline 1,000 ML 150 ML IV ×2 (01:36→10:37)
[2021-07-02] MEDS: ceFAZolin 2,000 MG in Normal Saline 100 ML 200 MG IVPB ×3 (04:04→20:20)
[2021-07-02] MEDS: Acetaminophen 500 MG TAB 1000 MG PO ×3 (06:23→18:16)
[2021-07-02 07:24] LABS: Abs Immature Grans 0.02 10^3/uL (0.0-0.06); Absolute Basophil Count 0.03 10^3/uL (0.0-0.2); Absolute Eosinophil Count 0.15 10^3/uL (0.0-0.7); Absolute Lymphocyte Count 1.71 10^3/uL (1.2-3.4); Absolute Monocyte Count 0.63 10^3/uL (0.1-0.8); Absolute Neutrophil Count 3.91 10^3/uL (1.2-6.7); Basophils % 0.5; Eosinophils % 2.3; HCT 32.5 % (40.0-50.0); HGB 10.3 g/dL (13.5-17.5); Immature Grans % 0.3; Lymphocytes % 26.5; MCH 28.1 pg (27.0-33.0); MCHC 31.7 % (32.0-36.0); MCV 88.6 fL (80-95); MPV 9.9 fL (8.0-11.0); Monocytes % 9.8; Neutrophils % 60.6; Nucleated RBC 0 %; Platelet Count 201 10^3/uL (130-400); RBC 3.67 10^6/uL (4.36-5.78); RDW 14.5 % (11.8-14.1); RDW-SD 46.8 fL; WBC 6.45 10^3/uL (4.4-10.8)
[2021-07-02 07:35] LABS: Anion Gap 9.1 mmol/L (3-11); BUN 16 mg/dL (7-18); CO2 21.9 mmol/L (21.0-32.0); CREATININE 0.6 mg/dL (0.70-1.30); Chloride 112 mmol/L (98-107); Glucose 98 mg/dL (74-106); Potassium 3.4 mmol/L (3.5-5.1); Sodium 143 mmol/L (136-145)
[2021-07-02 07:48] LABS: Bilirubin Negative (Negative); Blood Moderate (Negative); Clarity Clear (Clear); Glucose Negative (Negative); Ketones Negative (Negative); Leukocyte Esterase Negative (Negative); Nitrite Negative (Negative); Urobilinogen 0.2 EU/dL (Up TO 0.2); pH 5.5 (5-8)
[2021-07-02 08:02] LABS: Bacteria Negative HPF (Negative); Epithelial Cells Negative HPF (Negative); Other Cells Rare Renal (Negative); RBC 20-50 HPF (0-2); WBC 0-2 HPF (0-5)
[2021-07-02 08:03] LABS: C & S Indicated? No; Casts Negative LPF (Negative); Crystals Mod Calcium Oxalate HPF (Negative); Mucus Negative (Negative)
[2021-07-02] MEDS: Lidocaine 5% Patch 2 PATCH TP (08:45)
[2021-07-02] MEDS: Polyethylene Glycol 3350 17 GM PACKET PO (08:45)
[2021-07-02] MEDS: Protein Nutritional Supplement 16 GM 1 OUNCE PACKET PO ×2 (08:45→20:18)
[2021-07-02] MEDS: Multivitamin w/Minerals TAB 1 TAB PO (08:46)
[2021-07-02] MEDS: amLODIPine 10 MG TAB PO (08:46)
[2021-07-02] MEDS: diazePAM 2 MG TAB PO ×3 (08:46→20:18)
[2021-07-02] MEDS: Magnesium Chloride 64 MG TABCR PO ×2 (08:46→20:18)
[2021-07-02] MEDS: Senna TAB 2 TAB PO ×2 (08:46→20:17)
[2021-07-02] MEDS: Ascorbic Acid 500 MG TAB PO ×2 (08:46→20:18)
[2021-07-02] MEDS: Pantoprazole 40 MG TABCR PO (08:47)
[2021-07-02] MEDS: Docusate Sodium 100 MG CAP PO ×3 (08:47→20:18)
[2021-07-02] MEDS: Fluticasone NASAL SPRAY 16 GM BTL NS (08:47)
[2021-07-02] MEDS: Apixaban 5 MG TAB PO ×2 (08:47→20:18)
[2021-07-02 10:10] LABS: Source Nasal/Nares
[2021-07-02 11:04] LABS: COVID-19 PCR Negative (Negative)
[2021-07-02 11:44] LABS: Magnesium 1.4 mg/dL (1.8-2.4)
--- NOTE | 2021-07-02 12:07 | PDOC.CMPRO ---
- If Service Date Differs Date of service: 07/02/21 Time of Service: 12:07 Care Management Progress Note S/O: Bruce was awake, alert and easily engaged in conversation when CM met with him. Favio started by saying that he's been having scary thoughts during the night which he pin points to starting 1 day after the outdoor picnic with his family. He goes on by saying, at the time his thoughts seem so real so he been reaching out to his friends and family in the middle of the night. Favio reviewed his call log with CM and it appears that he does make several calls each night between 12:30-2:30. Last night he called a friend and told him that he was at a restaurant and not having a good time and asked if he would come pick him up? Favio states that he knows his friend is aware he's at the hospital and regrets making the call but the situation at the time seemed so real. Favio also shared that he thought his two kittens were in his room the other night and also recalls believing that there were snakes in his room on another occasion. Favio confirmed that he's never seen kittens or snakes in his room and is aware that these thoughts are just bogus. Favio also shared that when he was outside with his family he did eat a small regular brownie the size of a cookie. He does not know who made the brownie and doesn't want to accuse anyone if there was TCH in it. He reports that he has not seen his son in over 2 years and is just starting to form a relationship with him and doesn't want to point fingers. He advises that he is thinking about asking Nicki today who made the brownies. CM continues to support. A:56 year old male admitted on 02/22/21 with constipation. He has had a complicated course which has included several SB-1 stays as well as acute admissions. P: Favio will likely transition to SWB1 once medically cleared. Favio's ultimate disposition remains unclear as he awaits long term acute care registered nurse Medicaid approval. CM will continue to support Favio, his family and assess for discharge planning considerations.
[2021-07-02 12:44] LABS: Procalcitonin < 0.1 ng/mL
[2021-07-02] MEDS: POTASSIUM CHLORIDE 20 MEQ/100 ML BAG 50 MEQ IVPB ×2 (13:20→16:28)
[2021-07-02] MEDS: MAGNESIUM SULFATE 4 GM/100 ML BAG IVPB (13:52)
[2021-07-02] MEDS: HYDROmorphone 2 MG TAB PO ×2 (14:00→22:18)
--- NOTE | 2021-07-02 14:26 | W.PM.PROGNOT ---
Date of Service Date of service: 07/02/21 Time of Service: 14:26 Assessment and Plan Assessment and plan (1) Delirium: Status: Resolved Assessment and plan: My impression is that this is due to possible ingestion of a hallucinogen in addition to possible medication side effects. I do not think that the delirium and the fever today are connected as the delirium has resolved and the fever is new. (2) Fever: Status: Acute Assessment and plan: No evidence of UTI or PNA. Does have known osteomyelitis, which could be the cause. Also, w/ h/o C.Diff and long standing abx, will check C.Diff. Consider recurrent VTE. Consider vancomycin-induced fever. (3) Hypercalcemia: Status: Acute Assessment and plan: Improved. Decrease IVF as Favio's PO intake has improved (4) Acute osteomyelitis of sacrum: Status: Chronic Assessment and plan: continue cefazolin and vancomycin. wound care Will likely require 6 weeks of abx, but will speak with ID. (5) Neurogenic bladder: Status: Chronic Assessment and plan: Last suprapubic catheter changed on 06/16. UA negative today. Per Dr. Molina we will need monthly changes (6) Major depressive disorder: Status: Chronic Assessment and plan: We held all of the antidepressants, and Favio's delirium has improved. He has a conversation with his psychiatrist today. Qualifiers: Major depression recurrence: single episode Active/Remission status: currently active Major depression episode severity: moderate Qualified Code(s): F32.1 - Major depressive disorder, single episode, moderate (7) S/P colostomy: Status: Chronic Assessment and plan: R/o C. Diff (8) Quadriplegia: Status: Chronic Assessment and plan: Has follow up appointment at [facility] in [facility]. (9) DVT (deep venous thrombosis): Status: Chronic Assessment and plan: Continue apixaban Qualifiers: DVT location: lower extremity Affected thrombotic vein of extremity: femoral Chronicity: acute Laterality: right Qualified Code(s): I82.411 - Acute embolism and thrombosis of right femoral vein (10) Discharge planning issues: Status: Acute Assessment and plan: DNR/DNI Continues to require hospitalization Subjective Subjective Interval history since last seen: Favio is 100% clear today. He refused to take haldol last night. He denies dizziness, chest pain, shortness of breath, nausea. Febrile today - Tmax 38.2. Favio states he has a h/o C.Diff. His stool output has not changed, however. Favio states he feels like a million dollars and cannot believe that he is febrile. He also shared with me that he used to drink and smoke pot every day. Exam Narrative Exam Narrative: General: Pleasant middle-aged male who is A&Ox3, conversant, animated, looks much better than he did over the weekend. He is not hallucinating HEENT: EOMI, MMM Heart: RRR, no m/r/g Lungs: CTAB Abdomen: soft, nontender, ostomy output greenish, soft/liquid, but not unusual for him Extremities: +1 edema at B ankles Objective Last Vital Signs Temp 38.2 C H 07/02/21 11:22 Pulse 83 07/02/21 11:22 Resp 19 07/02/21 11:22 BP 142/77 H 07/02/21 11:22 Pulse Ox 96 07/02/21 11:22 Laboratory Results - last 24 hr 07/01/21 07/02/21 07/02/21 15:52 06:32 07:10 WBC RBC Hgb Hct MCV MCH MCHC RDW Plt Count MPV Immature Gran % Neutrophils % Lymphocytes % Monocytes % Eosinophils % Basophils % Nucleated RBC % Absolute Neutrophils Absolute Lymphocytes Absolute Monocytes Absolute Eosinophils Absolute Basophils Sodium 143 Potassium 3.4 L Chloride 112 H Carbon Dioxide 21.9 Anion Gap 9.1 BUN 16 Creatinine 0.6 L Estimated GFR/1.73 m2 >= 60.00 Glucose 98 Calcium 10.0 Magnesium Procalcitonin Urine Color Yellow Urine Clarity Clear Urine pH 5.5 Ur Specific [place] 1.020 Urine Protein Negative Urine Ketones Negative Urine Blood Moderate H Urine Nitrite Negative Urine Bilirubin Negative Urine Urobilinogen 0.2 Ur Leukocyte Esterase Negative Urine RBC 20-50 H Urine WBC 0-2 Ur Epithelial Cells Negative Urine Crystals Mod Calcium Oxalate Urine Bacteria Negative Urine Casts Negative Urine Mucus Negative Urine Other Rare Renal Ur Culture Indicated? No Urine Glucose Negative Vancomycin Trough 20.5 H* COVID-19 Source SARS-CoV-2 (PCR) 07/02/21 07/02/21 07/02/21 07:10 07:10 09:50 WBC 6.45 RBC 3.67 L Hgb 10.3 L Hct 32.5 L MCV 88.6 MCH 28.1 MCHC 31.7 L RDW 14.5 H Plt Count 201 MPV 9.9 Immature Gran % 0.3 Neutrophils % 60.6 Lymphocytes % 26.5 Monocytes % 9.8 Eosinophils % 2.3 Basophils % 0.5 Nucleated RBC % 0 Absolute Neutrophils 3.91 Absolute Lymphocytes 1.71 Absolute Monocytes 0.63 Absolute Eosinophils 0.15 Absolute Basophils 0.03 Sodium Potassium Chloride Carbon Dioxide Anion Gap BUN Creatinine Estimated GFR/1.73 m2 Glucose Calcium Magnesium 1.4 L Procalcitonin Urine Color Urine Clarity Urine pH Ur Specific [place] Urine Protein Urine Ketones Urine Blood Urine Nitrite Urine Bilirubin Urine Urobilinogen Ur Leukocyte Esterase Urine RBC Urine WBC Ur Epithelial Cells Urine Crystals Urine Bacteria Urine Casts Urine Mucus Urine Other Ur Culture Indicated? Urine Glucose Vancomycin Trough COVID-19 Source Nasal/Nares SARS-CoV-2 (PCR) Negative 07/02/21 11:56 WBC RBC Hgb Hct MCV MCH MCHC RDW Plt Count MPV Immature Gran % Neutrophils % Lymphocytes % Monocytes % Eosinophils % Basophils % Nucleated RBC % Absolute Neutrophils Absolute Lymphocytes Absolute Monocytes Absolute Eosinophils Absolute Basophils Sodium Potassium Chloride Carbon Dioxide Anion Gap BUN Creatinine Estimated GFR/1.73 m2 Glucose Calcium Magnesium Procalcitonin < 0.1 Urine Color Urine Clarity Urine pH Ur Specific [place] Urine Protein Urine Ketones Urine Blood Urine Nitrite Urine Bilirubin Urine Urobilinogen Ur Leukocyte Esterase Urine RBC Urine WBC Ur Epithelial Cells Urine Crystals Urine Bacteria Urine Casts Urine Mucus Urine Other Ur Culture Indicated? Urine Glucose Vancomycin Trough COVID-19 Source SARS-CoV-2 (PCR)
[2021-07-02 15:53] LABS: C Diff PCR Negative (Negative)
[2021-07-02 17:38] LABS: Vancomycin, Trough 17.4 ug/mL (10.0-20.0)
[2021-07-02] MEDS: Normal Saline 1,000 ML 75 ML IV (18:18)
[2021-07-02] MEDS: Melatonin 3 MG TAB 9 MG PO (20:17)
--- NOTE | 2021-07-03 | DI.US_ITS ---
Exam(s) US EXTREMITY VENOUS BI EXAM: US EXTREMITY VENOUS BI CLINICAL HISTORY: FUO. TECHNIQUE: Bilateral lower extremity venous ultrasound performed using grayscale, color-flow, and sp ectral Doppler analysis. COMPARISON: No exams were available for comparison FINDINGS: The bilateral common femoral, femoral and popliteal veins demonstrate normal compressibility, augment ation, and color Doppler. The posterior tibial veins are patent. Saphenofemoral junction is patent. IMPRESSION: Right: Negative for DVT Left: Negative for DVT DATA REPOSITORY:
[2021-07-03] MEDS: VANCOMYCIN/WATER (PEG) 1 GM/200 ML BAG IV ×3 (01:52→17:32)
[2021-07-03] MEDS: Acetaminophen 500 MG TAB 1000 MG PO ×3 (01:52→17:31)
[2021-07-03 04:06] VITALS: BP 137/82; PULSE 75; RESP 18; TEMP 37.1; O2SAT 96
[2021-07-03] MEDS: Normal Saline 1,000 ML 75 ML IV (04:32)
[2021-07-03] MEDS: ceFAZolin 2,000 MG in Normal Saline 100 ML 200 MG IVPB ×3 (04:32→21:21)
[2021-07-03 07:22] LABS: Abs Immature Grans 0.03 10^3/uL (0.0-0.06); Absolute Basophil Count 0.02 10^3/uL (0.0-0.2); Absolute Eosinophil Count 0.18 10^3/uL (0.0-0.7); Absolute Lymphocyte Count 1.65 10^3/uL (1.2-3.4); Absolute Monocyte Count 0.64 10^3/uL (0.1-0.8); Absolute Neutrophil Count 4.35 10^3/uL (1.2-6.7); Basophils % 0.3; Eosinophils % 2.6; HCT 31.1 % (40.0-50.0); HGB 10.1 g/dL (13.5-17.5); Immature Grans % 0.4; MCH 28.3 pg (27.0-33.0); MCHC 32.5 % (32.0-36.0); MCV 87.1 fL (80-95); Monocytes % 9.3; Neutrophils % 63.4; Nucleated RBC 0 %; Platelet Count 198 10^3/uL (130-400); RBC 3.57 10^6/uL (4.36-5.78); RDW 14.3 % (11.8-14.1); RDW-SD 46.3 fL; WBC 6.87 10^3/uL (4.4-10.8)
[2021-07-03 07:43] LABS: Magnesium 1.7 mg/dL (1.8-2.4)
[2021-07-03 07:48] LABS: Anion Gap 9.4 mmol/L (3-11); BUN 17 mg/dL (7-18); CO2 21.6 mmol/L (21.0-32.0); CREATININE 0.5 mg/dL (0.70-1.30); Calcium 9.8 mg/dL (8.5-10.1); Chloride 108 mmol/L (98-107); Glucose 107 mg/dL (74-106); Potassium 3.5 mmol/L (3.5-5.1); Sodium 139 mmol/L (136-145)
[2021-07-03] MEDS: Polyethylene Glycol 3350 17 GM PACKET PO (07:59)
[2021-07-03] MEDS: Protein Nutritional Supplement 16 GM 1 OUNCE PACKET PO ×2 (07:59→21:20)
[2021-07-03] MEDS: Lidocaine 5% Patch 2 PATCH TP (07:59)
[2021-07-03] MEDS: Senna TAB 2 TAB PO ×2 (08:00→21:21)
[2021-07-03] MEDS: Multivitamin w/Minerals TAB 1 TAB PO (08:00)
[2021-07-03] MEDS: Magnesium Chloride 64 MG TABCR PO (08:00)
[2021-07-03] MEDS: diazePAM 2 MG TAB PO ×3 (08:00→21:22)
[2021-07-03] MEDS: Pantoprazole 40 MG TABCR PO (08:00)
[2021-07-03] MEDS: Docusate Sodium 100 MG CAP PO ×3 (08:01→21:23)
[2021-07-03] MEDS: amLODIPine 10 MG TAB PO (08:01)
[2021-07-03] MEDS: Fluticasone NASAL SPRAY 16 GM BTL NS (08:01)
[2021-07-03] MEDS: Apixaban 5 MG TAB PO ×2 (08:01→21:23)
[2021-07-03] MEDS: Ascorbic Acid 500 MG TAB PO ×2 (08:01→21:23)
[2021-07-03 08:48] VITALS: BP 148/85; PULSE 74; RESP 20; TEMP 36.6; O2SAT 97
[2021-07-03] MEDS: HYDROmorphone 2 MG TAB PO ×2 (09:47→23:35)
[2021-07-03] MEDS: MAGNESIUM SULFATE 2 GM/50 ML BAG IVPB (10:25)
[2021-07-03 16:26] VITALS: BP 139/96; PULSE 79; RESP 18; TEMP 37.7; O2SAT 98
--- NOTE | 2021-07-03 16:41 | PDOC.CMPRO ---
- If Service Date Differs Date of service: 07/03/21 Time of Service: 16:41 Care Management Progress Note S/O: Bruce was awake, alert and easily engaged in conversation when CM met with him. He advises that he did not sleep at all last night because he's afraid the nightmares would come back. He shares that he sleeps fine during the day, it's just the nights that worry him. CM encouraged him to try to get some rest tonight and reassured Favio that staff would check in on him periodically throughout the night. Bruce is still reluctant to sleep tonight, CM continues to support. CM will work on sending Favio's 3 week medication history to Dr. Deysi Maya at pt's request. A:56 year old male admitted on 02/22/21 with constipation. He has had a complicated course which has included several SB-1 stays as well as acute admissions. P: Favio will likely transition to SWB1 once medically cleared. Favio's ultimate disposition remains unclear as he awaits group home Medicaid approval. CM will continue to support Favio, his family and assess for discharge planning considerations.
--- NOTE | 2021-07-03 16:44 | DI.VRAD_ITS ---
PROCEDURE INFORMATION: Exam: US Duplex Lower Extremity Veins, Bilateral Exam date and time: 07/03/2021 9:12 AM Age: 56 years old Clinical indication: Condition or disease; Other: Fuo TECHNIQUE: Imaging protocol: Real-time duplex ultrasound of the extremities with 2-D maldonado scale, color Doppler flow and spectral waveform analysis with image documentation. Complete exam focused on the bilateral lower extremity veins. COMPARISON: US LOWER EXTREMITY VENOUS RT 06/03/2021 2:09 PM FINDINGS: Right deep veins: Unremarkable. The common femoral, femoral, proximal profunda femoral and popliteal veins are patent without thrombus. Normal Doppler waveforms. Normal compressibility and/or augmentation response. Right superficial veins: Saphenofemoral junction is patent without thrombus. Left deep veins: Unremarkable. The common femoral, femoral, proximal profunda femoral and popliteal veins are patent without thrombus. Normal Doppler waveforms. Normal compressibility and/or augmentation response. Left superficial veins: Saphenofemoral junction is patent without thrombus. Soft tissues: Unremarkable. IMPRESSION: No evidence of deep vein thrombosis. Dictated and Authenticated by: Ana Luisa Parrish MD. Ordering:ELA Newton MD
--- NOTE | 2021-07-03 18:36 | PGE_ITS ---
Date of Service Date of service: 07/03/21 Time of Service: 18:37 Assessment and Plan Assessment and plan (1) Delirium: Status: Resolved Assessment and plan: My impression is that this is due to possible ingestion of a hallucinogen in addition to possible medication side effects and/or withdrawal. I do not think that the delirium and the fever are connected as the delirium h as resolved and the fever was new yesterday. (2) Fever: Status: Resolved Assessment and plan: No evidence of UTI or PNA. Blood cultures are negative. No evidence of new VTE (and the old one has resolved). C.Diff negative. Does have known osteomyelitis, which could be the cause. Consider vancomycin-induced fever. Will discuss with ID. (3) Hypercalcemia: Status: Acute Assessment and plan: Improved. D/c IVF. (4) Acute osteomyelitis of sacrum: Status: Chronic Assessment and plan: continue cefazolin and vancomycin. wound care Will likely require 6 weeks of abx, but will speak with ID. (5) Neurogenic bladder: Status: Chronic Assessment and plan: Last suprapubic catheter changed on 06/16. UA negative on most recent check. Per Dr. Molina we will need monthly changes (6) Major depressive disorder: Status: Chronic Assessment and plan: We held all of the antidepressants, and Favio's delirium has resolved He spoke with his psychiatrist. He is hopeful about going home. Qualifiers: Major depression recurrence: single episode Active/Remission status: currently active Major depression episode severity: moderate Qualified Code(s): F32.1 - Major depressive disorder, single episode, moderate (7) S/P colostomy: Status: Chronic Assessment and plan: C. diff negative. Functioning well. (8) Quadriplegia: Status: Chronic Assessment and plan: Has follow up appointment at [facility] in [facility] on 07/09. (9) DVT (deep venous thrombosis): Status: Chronic Assessment and plan: Continue apixaban Qualifiers: DVT location: lower extremity Affected thrombotic vein of extremity: femoral Chronicity: acute Laterality: right Qualified Code(s): I82.411 - Acute embolism and thrombosis of right femoral vein (10) Discharge planning issues: Status: Acute Assessment and plan: DNR/DNI Continues to require hospitalization Subjective Subjective Interval history since last seen: Mr Velasquez states the is feeling fantastic. Denies dizziness, chest pain, shortness of breath, nausea. We discussed that I have not found a new source of infection and that the preliminary read of the DVT study was negative. He is interested in when/if he can possibly go home. We discussed that we need to get ID recommendations on the antibiotics, which I will be doing tomorrow. If they can be given at home and all the care he requires is something that Nicki can do, this could be a possibility. He started crying when talking about it because he has not been home in so long. He said they were happy tears. He has been very clear today. He has defervesced. Exam Narrative Exam Narrative: General: Pleasant middle-aged male, A&Ox3, conversant, animated, looks well, not hallucinating HEENT: EOMI, MMM Heart: RRR, no m/r/g Lungs: CTAB Abdomen: soft, nontender, ostomy output greenish, soft/liquid, but not unusual for him Extremities: +1 edema at B ankles Objective Last Vital Signs Temp 37.7 C H 07/03/21 16:26 Pulse 79 07/03/21 16:26 Resp 18 07/03/21 16:26 BP 139/96 H 07/03/21 16:26 Pulse Ox 98 07/03/21 16:26 Laboratory Results - last 24 hr 07/03/21 07/03/21 07/03/21 06:54 06:54 06:54 WBC 6.87 RBC 3.57 L Hgb 10.1 L Hct 31.1 L MCV 87.1 MCH 28.3 MCHC 32.5 RDW 14.3 H Plt Count 198 MPV 10.0 Immature Gran % 0.4 Neutrophils % 63.4 Lymphocytes % 24.0 Monocytes % 9.3 Eosinophils % 2.6 Basophils % 0.3 Nucleated RBC % 0 Absolute Neutrophils 4.35 Absolute Lymphocytes 1.65 Absolute Monocytes 0.64 Absolute Eosinophils 0.18 Absolute Basophils 0.02 Sodium 139 Potassium 3.5 Chloride 108 H Carbon Dioxide 21.6 Anion Gap 9.4 BUN 17 Creatinine 0.5 L Estimated GFR/1.73 m2 >= 60.00 Glucose 107 H Calcium 9.8 Magnesium 1.7 L
[2021-07-03 19:25] VITALS: BP 133/74; PULSE 68; RESP 22; TEMP 36.7; O2SAT 98
--- NOTE | 2021-07-03 19:30 | WOUNDCONS ---
- If Service Date Differs Date of service: 07/03/21 Time of Service: 10:45 Wound Initial Evaluation Narrative: Mr. Velasquez seen today for weekly evaluation of wounds. Pt gives verbal consent for pictures. Pt seems alert and oriented at baseline during our conversation. Dr. Murillo notified of evaluation, however Dr. Murillo was able to see wounds yesterday so in person evaluation was deferred today. Left ischial tuberosity wound base dark pink with granulation tissue noted. Scant serous drainage noted. No undermining noted when edges probed. Wound measures 1.8 cm x 1.2 cm x 0.4 cm. Right ischial tuberosity wound bed with dark pink tissue, granulation tissue noted around wound edges. Scant serous drainage noted. Wound measures 2.1 cm x 1.8 cm x 1 cm. Undermining noted from 1 o'clock to 5 o'clock measuring deepest at 1.7 cm at 2 o'clock. Sacrum with scant serous drainage noted along line of partial thickness skin loss. Left area measures 5.5 cm x 1 cm x 0.1 cm. Right area measures 1.5 cm x 0.4 cm x 0.1 cm. Abd wound beds are light pink with scant serous drainage at this time. Proximal open area measures 1.7 cm x 1 cm x 0.1 cm. Distal area measures 4.5 cm x 2 cm x 0.1 cm. Right heel measurement are from open area from debridement and seems to be fairly well epithelialized along wound base. Open area measures 3.1 cm x 4.8 cm x 0.1 cm. Right 5th toe has an area of brown ? eschar with serous draiange noted. Area measures 2.2 cm x 2.5 cm x 0.1 cm.Right heel and right 5th toe being managed by Dr. Silva at this time. [facility] bed is on and continues with same settings using alternating pressure. Nursing rounds on bed every shift. Pt had been refusing meals sporadically last week per documentation, but has eaten 100 percent of all meals yesterday and today. Since wound measurements are getting smaller and wounds seem to have decreased undermining/tunneling, I am recommending continuing current treatments as ordered for this week. - Wound Right lateral foot Wound Type: Pressure Ulcer Wound General Appearance: Unapproximated Wound Length: 2.2 cm Wound Width: 2.5 cm Wound Depth: 0.1 cm Midline abdomen Wound Length: 4.5 cm Wound Width: 2 cm Wound Depth: 0.1 cm Left ischial tuberosity Wound Length: 1.8 cm Wound Width: 1.2 cm Wound Depth: 0.4 cm Right ischial tuberosity Wound Length: 2.1 cm Wound Width: 1.8 cm Wound Depth: 1 cm Additional Other Comments: Undermining from 1 o'clock to 5 o'clock with greatest depth measuring 1.7 cm at 2 o'clock. Right heel Wound Length: 3.1 cm Wound Width: 4.8 cm Wound Depth: 0.1 cm Sacrum Wound Length: 5.5 cm Wound Width: 1 cm Wound Depth: 0.1 cm Additional Other Comments: Measurements above from left open area. Right open area measures 1.5 cm x 0.4 cm x 0.1 cm. - Recomendation Recomendation:: Recommend continuing dressing orders from last week, including the right heel and right lateral foot wound orders from Dr. Silva.
[2021-07-03] MEDS: Melatonin 3 MG TAB 9 MG PO (21:22)
[2021-07-03] MEDS: Magnesium Chloride 64 MG TABCR 128 MG PO (21:22)
[2021-07-03] MEDS: Normal Saline Flush 10 ML SYR IVP (22:43)
[2021-07-03 23:25] VITALS: BP 145/89; PULSE 73; RESP 16; TEMP 38.1; O2SAT 97
[2021-07-04] MEDS: Acetaminophen 500 MG TAB 1000 MG PO ×3 (02:32→17:47)
[2021-07-04] MEDS: VANCOMYCIN/WATER (PEG) 1 GM/200 ML BAG IV ×2 (02:32→10:09)
[2021-07-04 04:14] VITALS: BP 167/92; PULSE 77; RESP 18; TEMP 37.1; O2SAT 98
[2021-07-04] MEDS: ceFAZolin 2,000 MG in Normal Saline 100 ML 200 MG IVPB ×2 (04:42→12:00)
[2021-07-04 08:15] VITALS: BP 151/94; PULSE 75; RESP 21; TEMP 36.5; O2SAT 96
[2021-07-04 08:42] LABS: Prealbumin 30 mg/dL (20-40)
[2021-07-04] MEDS: Normal Saline Flush 10 ML SYR IVP ×3 (08:56→21:36)
[2021-07-04] MEDS: Protein Nutritional Supplement 16 GM 1 OUNCE PACKET PO ×2 (08:57→21:32)
[2021-07-04] MEDS: Polyethylene Glycol 3350 17 GM PACKET PO (08:57)
[2021-07-04] MEDS: Lidocaine 5% Patch 2 PATCH TP (08:58)
[2021-07-04] MEDS: diazePAM 2 MG TAB PO ×3 (08:59→21:35)
[2021-07-04] MEDS: Multivitamin w/Minerals TAB 1 TAB PO (08:59)
[2021-07-04] MEDS: Apixaban 5 MG TAB PO ×2 (08:59→21:35)
[2021-07-04] MEDS: Fluticasone NASAL SPRAY 16 GM BTL NS (08:59)
[2021-07-04] MEDS: Ascorbic Acid 500 MG TAB PO ×2 (08:59→21:34)
[2021-07-04] MEDS: Magnesium Chloride 64 MG TABCR 128 MG PO ×2 (08:59→21:35)
[2021-07-04] MEDS: Senna TAB 2 TAB PO ×2 (08:59→21:34)
[2021-07-04] MEDS: amLODIPine 10 MG TAB PO (09:00)
[2021-07-04] MEDS: Docusate Sodium 100 MG CAP PO ×3 (09:00→21:34)
[2021-07-04] MEDS: Pantoprazole 40 MG TABCR PO (09:01)
[2021-07-04 09:42] LABS: Vancomycin, Trough 17.8 ug/mL (10.0-20.0)
[2021-07-04 11:40] VITALS: BP 138/85; PULSE 76; RESP 18; TEMP 36.5; O2SAT 98
[2021-07-04 12:14] VITALS: BP 150/92; PULSE 79; RESP 21; TEMP 37.3; O2SAT 97
--- NOTE | 2021-07-04 13:07 | PDOC.CMPRO ---
- If Service Date Differs Date of service: 07/04/21 Time of Service: 13:07
--- NOTE | 2021-07-04 13:42 | NUR.NOTE ---
Nursing Note: patient 's IV pump was sounding. Infusion was complete. Line was removed and midline flushed with normal saline and locked. patient s lunch tray was near the bed. nursing offered to set it up for him and asked him if there was anything else he needed. He said no he was effin done with this place
[2021-07-04 15:30] VITALS: BP 126/68; PULSE 83; RESP 20; TEMP 37.3; O2SAT 96
--- NOTE | 2021-07-04 16:49 | PDOC.CMPRO ---
- If Service Date Differs Date of service: 07/04/21 Time of Service: 16:49 Care Management Progress Note S/O: 1100: Bruce was awake, alert and easily engaged in conversation when CM met with him. He advises that he has not slept in 2 nights because he's afraid the nightmares will come back. CM encouraged him to try to get some rest tonight. Bruce is still reluctant to sleep and is adamant that he's not going to take any sleeping meds. 1430: Bruce is tearful and expresses to CM that he's desperate to go home (to Nicki's house). Dr. Murillo does not feel that this disposition is out of reach, but feels there are things that need to be in place in order for this to happen. One being that Favio must be off IV antibiotics. Favio will also need to have Nicki's support and the equipment needed for a safe discharge. Favio has an appointment at with [facility] [place] on 07/09/21 at 1145. [facility] is working on transport. [facility] will work on coordinating a meeting with Nicki Stahl MD, RN to make sure that we are all on the same page. Nicki is aware of plan. [facility] will continue to support. A:56 year old male admitted on 02/22/21 with constipation. He has had a complicated course which has included several SB-1 stays as well as acute admissions. P: Transition to SWB1 vs transfer home with Nicki once medically cleared. 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 [facility] will continue to support Favio, his family and assess for discharge planning considerations.
[2021-07-04] MEDS: Collagenase 30 GM TUBE TP (18:06)
--- NOTE | 2021-07-04 18:24 | PGE_ITS ---
Date of Service Date of service: 07/04/21 Time of Service: 18:24 Assessment and Plan Assessment and plan (1) Fever: Status: Acute Assessment and plan: Likely drug-induced fever. D/c abx. No evidence of UTI or PNA. Blood cultures are negative. No evidence of new VTE (and the old one has resolved). C.Diff negative. Does have known osteomyelitis, but this is unlikely to be the cause of the fever, per ID, and does not appear to be responding to antibiotic modality of treatment. Will monitor Favio off of abx x48 hrs. Restart abx if fevers get higher/are sustained off of abx, if he develops discharge from his wounds, or other indications of infection appear. (2) Delirium: Status: Resolved Assessment and plan: My impression is that this is due to possible ingestion of a hallucinogen in addition to possible medication side effects and/or withdrawal. I do not think that the delirium and the fever are connected as the delirium has resolved and the fever appeared after. (3) Hypercalcemia: Status: Resolved Assessment and plan: Recheck labs in am (4) Acute osteomyelitis of sacrum: Status: Chronic Assessment and plan: continue cefazolin and vancomycin. wound care Will likely require 6 weeks of abx, but will speak with ID. (5) Neurogenic bladder: Status: Chronic Assessment and plan: Last suprapubic catheter changed on 06/16. UA negative on most recent check. Per Dr. Molina we will need monthly changes (6) Major depressive disorder: Status: Chronic Assessment and plan: We held all of the antidepressants, and Favio's delirium has resolved He spoke with his psychiatrist. He is hopeful about going home. Qualifiers: Major depression recurrence: single episode Active/Remission status: currently active Major depression episode severity: moderate Qualified Code(s): F32.1 - Major depressive disorder, single episode, moderate (7) S/P colostomy: Status: Chronic Assessment and plan: C. diff negative. Functioning well. (8) Quadriplegia: Status: Chronic Assessment and plan: Has follow up appointment at [facility] in [facility] on 07/09. If there are no new therapeutic plans at that time, then Favio could potentially start preparing for discharge home. (9) DVT (deep venous thrombosis): Status: Chronic Assessment and plan: Continue apixaban Qualifiers: DVT location: lower extremity Affected thrombotic vein of extremity: femoral Chronicity: acute Laterality: right Qualified Code(s): I82.411 - Acute embolism and thrombosis of right femoral vein (10) Discharge planning issues: Status: Acute Assessment and plan: DNR/DNI Monitor off of abx x48 hrs. If no worsening of his condition, then Favio should be placed in SB1 status and follow up with his [facility] appointment on 07/09. Subjective Subjective Interval history since last seen: Mr Velasquez was very upset today that he was not going home, stating that I had said that he would be today. In fact, we did discuss yesterday that a number of things would need to happen before he could go home, like for example his medical needs would need to be such that could be handled at home, but at no point did I tell him that he would be going home today. Evidently, he was tearful and threatening to throw himself out of the bed when the nursing/care management spoke to him about this today. By the time I came to see him, he was in a great mood. He apologized for his earlier behavior. He stated he felt great. He was excited to hear that the ID doctor had recommended cessation of abx (Dr Addison at [facility] feels that if the ostomyelitis is what we have been treating since January of 2021, it is not responding to abx and alternative treatments could be pursued such as debridgements and flap surgery. Current fever could be his tumor fever). Favio was still interested in going home over the weekend. He is counting on Nicki to provide his care. Nicki did speak to care management today endorsing that she would support Favio and would provide the care, but during my visit with him, it became evident that she does not know how to change an ostomy bag and that there is still a lot of teaching to be done. She was willing to come here to get the teaching. Denies dizziness, chest pain, shortness of breath, nausea. Feels well. Last fever 38.1 was at 23:25 yesterday. Exam Narrative Exam Narrative: General: Pleasant middle-aged male, A&Ox3, conversant, animated, looks well HEENT: EOMI, MMM Heart: RRR, no m/r/g Lungs: CTAB Abdomen: soft, nontender, ostomy output greenish, soft/liquid, but not unusual for him Extremities: +1 edema at B ankles Objective Last Vital Signs Temp 37.3 C 07/04/21 12:14 Pulse 79 07/04/21 12:14 Resp 21 07/04/21 12:14 BP 150/92 H 07/04/21 12:14 Pulse Ox 97 07/04/21 12:14 Laboratory Results - last 24 hr 07/03/21 07/04/21 06:54 09:16 Prealbumin 30 Vancomycin Trough 17.8
[2021-07-04 20:58] VITALS: BP 138/86; PULSE 76; RESP 18; TEMP 37.1; O2SAT 96
[2021-07-04] MEDS: HYDROmorphone 2 MG TAB PO (21:34)
[2021-07-04] MEDS: Melatonin 3 MG TAB 9 MG PO (21:35)
[2021-07-05 05:08] VITALS: BP 128/83; PULSE 70; RESP 18; TEMP 37.1; O2SAT 97
[2021-07-05 07:07] LABS: Abs Immature Grans 0.04 10^3/uL (0.0-0.06); Absolute Basophil Count 0.02 10^3/uL (0.0-0.2); Absolute Eosinophil Count 0.26 10^3/uL (0.0-0.7); Absolute Monocyte Count 0.62 10^3/uL (0.1-0.8); Basophils % 0.3; Eosinophils % 3.9; HCT 32.2 % (40.0-50.0); HGB 10.6 g/dL (13.5-17.5); Immature Grans % 0.6; Lymphocytes % 20.8; MCH 28.8 pg (27.0-33.0); MCHC 32.9 % (32.0-36.0); MCV 87.5 fL (80-95); MPV 10.4 fL (8.0-11.0); Monocytes % 9.2; Neutrophils % 65.2; Nucleated RBC 0 %; Platelet Count 206 10^3/uL (130-400); RBC 3.68 10^6/uL (4.36-5.78); RDW 14.5 % (11.8-14.1); RDW-SD 45.9 fL; WBC 6.74 10^3/uL (4.4-10.8)
[2021-07-05 07:15] LABS: BUN 19 mg/dL (7-18); C-Reactive Protein 0.15 mg/dL (0.0-0.3); CREATININE 0.6 mg/dL (0.70-1.30); Calcium 10.1 mg/dL (8.5-10.1); Chloride 107 mmol/L (98-107); Glucose 96 mg/dL (74-106); Potassium 3.7 mmol/L (3.5-5.1); Sodium 140 mmol/L (136-145)
[2021-07-05 07:22] LABS: Magnesium 1.6 mg/dL (1.8-2.4)
[2021-07-05 08:04] VITALS: BP 137/87; PULSE 76; RESP 18; TEMP 36.3; O2SAT 96
[2021-07-05] MEDS: Protein Nutritional Supplement 16 GM 1 OUNCE PACKET PO ×2 (09:01→20:52)
[2021-07-05] MEDS: Polyethylene Glycol 3350 17 GM PACKET PO (09:01)
[2021-07-05] MEDS: Lidocaine 5% Patch 2 PATCH TP (09:01)
[2021-07-05] MEDS: Docusate Sodium 100 MG CAP PO ×3 (09:02→20:55)
[2021-07-05] MEDS: Ascorbic Acid 500 MG TAB PO ×2 (09:02→20:55)
[2021-07-05] MEDS: amLODIPine 10 MG TAB PO (09:02)
[2021-07-05] MEDS: diazePAM 2 MG TAB PO ×3 (09:02→20:54)
[2021-07-05] MEDS: Magnesium Chloride 64 MG TABCR 128 MG PO ×2 (09:02→20:55)
[2021-07-05] MEDS: Acetaminophen 500 MG TAB 1000 MG PO ×2 (09:02→16:55)
[2021-07-05] MEDS: Pantoprazole 40 MG TABCR PO (09:03)
[2021-07-05] MEDS: Apixaban 5 MG TAB PO (09:03)
[2021-07-05] MEDS: Senna TAB 2 TAB PO ×2 (09:03→20:55)
[2021-07-05] MEDS: Multivitamin w/Minerals TAB 1 TAB PO (09:03)
--- NOTE | 2021-07-05 09:25 | W.NUTRFU ---
Date of service: 07/05/21 Time of Service: 09:25 Nutritional Follow up NOTE: Most recent prealbumin wnl, wound consult note indicates pressure wounds improving. At this time, nutrient needs for wound healing and weight maintenance being met. Anticipate d/c to home in coming days. Able to meet 100% nutrient and fluid needs by mouth. Will continue to be available prn. Time Spent in Nutritional Counseling and Treatment: 0
[2021-07-05] MEDS: Normal Saline Flush 10 ML SYR IVP ×3 (10:33→20:55)
[2021-07-05] MEDS: MAGNESIUM SULFATE 4 GM/100 ML BAG IVPB (10:34)
[2021-07-05 11:08] VITALS: BP 104/62; PULSE 75; RESP 18; TEMP 37; O2SAT 95
[2021-07-05] MEDS: Collagenase 30 GM TUBE TP (11:44)
--- NOTE | 2021-07-05 12:01 | CMPROGNOTE_ITS ---
- If Service Date Differs Date of service: 07/05/21 Time of Service: 12:01 Care Management Progress Note S/O: A:56 year old male admitted on 02/22/21 with constipation. He has had a complicated course which has included several SB-1 stays as well as acute admissions. P: Transition to SWB1 vs transfer home with Nicki once medically cleared. 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 CM will continue to support Favio, his family and assess for discharge planning considerations.
[2021-07-05 15:59] VITALS: BP 119/79; PULSE 75; RESP 18; TEMP 36.8; O2SAT 95
--- NOTE | 2021-07-05 17:36 | PGE_ITS ---
Date of Service Date of service: 07/05/21 Time of Service: 10:30 Assessment and Plan Assessment and plan (1) Fever: Start date: 07/05/21 Start time: 10:30 Status: Resolved Assessment and plan: Likely drug-induced fever. D/c abx. No evidence of UTI or PNA. Blood cultures are negative. No evidence of new VTE (and the old one has resolved). C.Diff negative. Does have known osteomyelitis, but this is unlikely to be the cause of the fever, per ID, and does not appear to be responding to antibiotic modality of treatment. Will monitor Favio off of abx x48 hrs. Restart abx if fevers get higher/are sustained off of abx, if he develops discharge from his wounds, or other indications of infection appear. (2) Encephalopathy: Start date: 07/05/21 Start time: 10:30 Status: Resolved Assessment and plan: Baseline mentation (3) Acute osteomyelitis of sacrum: Start date: 07/05/21 Start time: 17:40 Status: Chronic Assessment and plan: Dr. Murillo spoke with ID yesterday and they stated to d/c all antibiotics as he may be running drug fevers. Antibx stopped. Fever free after 24 hours. He Will swing tomorrow if he continues to be afebrile (4) Neurogenic bladder: Start date: 07/05/21 Start time: 10:30 Status: Chronic Assessment and plan: Last suprapubic catheter changed on 06/16. UA negative on most recent check. Per Dr. Molina we will need monthly changes (5) Major depressive disorder: Start date: 07/05/21 Start time: 17:44 Status: Chronic Assessment and plan: We held all of the antidepressants, and Favio's delirium has resolved He did admit to having pot brownie while out over the weekend which contributed Qualifiers: Major depression recurrence: single episode Active/Remission status: currently active Major depression episode severity: moderate Qualified Code(s): F32.1 - Major depressive disorder, single episode, moderate (6) S/P colostomy: Start date: 07/05/21 Start time: 10:30 Status: Chronic Assessment and plan: C. diff negative. Functioning well. (7) Quadriplegia: Start date: 07/05/21 Start time: 10:30 Status: Chronic Assessment and plan: Has follow up appointment at [facility] on 07/09. He would benefit from surgery of cspine to be more independent (8) DVT (deep venous thrombosis): Start date: 07/05/21 Start time: 10:30 Status: Chronic Assessment and plan: no longer has dvt, recent study on 07/02 negative for DVT, will d/c apixaban and start enoxaparin 40 mg subcu Qualifiers: DVT location: lower extremity Affected thrombotic vein of extremity: femoral Chronicity: acute Laterality: right Qualified Code(s): I82.411 - Acute embolism and thrombosis of right femoral vein (9) Discharge planning issues: Start date: 07/05/21 Start time: 10:30 Status: Acute Assessment and plan: DNR/DNI Monitor off of abx x48 hrs. If no worsening of his condition, then Favio should be placed in SB1 status and follow up with his [facility] appointment on 07/09. discussed with Dr Murillo Subjective Subjective Patient reports: feels better Interval history since last seen: Patient states feeling like 20 million bucks Appt Tues for [employer] gen. Afebrile over 24 hours. Will swing tomorrow if he continues to be afibrile. Exam Narrative Exam Narrative: General: Pleasant middle-aged male, A&Ox3, conversant, animated, looks well HEENT: EOMI, MMM Heart: RRR, no m/r/g Lungs: CTAB Abdomen: soft, nontender, ostomy output greenish, soft/liquid, but not unusual for him Extremities: +1 edema at B ankles Objective Last Vital Signs Temp 36.8 C 07/05/21 15:59 Pulse 75 07/05/21 15:59 Resp 18 07/05/21 15:59 BP 119/79 07/05/21 15:59 Pulse Ox 95 07/05/21 15:59 Laboratory Results - last 24 hr 07/05/21 07/05/21 07/05/21 06:18 06:18 06:18 WBC 6.74 RBC 3.68 L Hgb 10.6 L Hct 32.2 L MCV 87.5 MCH 28.8 MCHC 32.9 RDW 14.5 H Plt Count 206 MPV 10.4 Immature Gran % 0.6 Neutrophils % 65.2 Lymphocytes % 20.8 Monocytes % 9.2 Eosinophils % 3.9 Basophils % 0.3 Nucleated RBC % 0 Absolute Neutrophils 4.40 Absolute Lymphocytes 1.40 Absolute Monocytes 0.62 Absolute Eosinophils 0.26 Absolute Basophils 0.02 Sodium 140 Potassium 3.7 Chloride 107 Carbon Dioxide 23.0 Anion Gap 10.0 BUN 19 H Creatinine 0.6 L Estimated GFR/1.73 m2 >= 60.00 Glucose 96 Calcium 10.1 Magnesium 1.6 L C-Reactive Protein 0.15
[2021-07-05] MEDS: Enoxaparin 40 MG/0.4 ML SYR SC (20:53)
[2021-07-05] MEDS: Melatonin 3 MG TAB 9 MG PO (20:55)
[2021-07-06 00:12] VITALS: BP 130/72; PULSE 70; RESP 20; TEMP 36.9; O2SAT 95
[2021-07-06] MEDS: Acetaminophen 500 MG TAB 1000 MG PO ×2 (01:47→10:10)
[2021-07-06] MEDS: HYDROmorphone 2 MG TAB PO (01:47)
[2021-07-06 06:59] LABS: Abs Immature Grans 0.03 10^3/uL (0.0-0.06); Absolute Basophil Count 0.03 10^3/uL (0.0-0.2); Absolute Eosinophil Count 0.32 10^3/uL (0.0-0.7); Absolute Lymphocyte Count 1.78 10^3/uL (1.2-3.4); Absolute Monocyte Count 0.71 10^3/uL (0.1-0.8); Absolute Neutrophil Count 3.86 10^3/uL (1.2-6.7); Basophils % 0.4; Eosinophils % 4.8; HCT 31.9 % (40.0-50.0); HGB 10.2 g/dL (13.5-17.5); Immature Grans % 0.4; Lymphocytes % 26.4; MCH 28.4 pg (27.0-33.0); MCV 88.9 fL (80-95); MPV 10.8 fL (8.0-11.0); Monocytes % 10.5; Neutrophils % 57.5; Nucleated RBC 0 %; Platelet Count 198 10^3/uL (130-400); RBC 3.59 10^6/uL (4.36-5.78); RDW 14.6 % (11.8-14.1); RDW-SD 46.8 fL; WBC 6.73 10^3/uL (4.4-10.8)
[2021-07-06 07:14] LABS: Anion Gap 7.4 mmol/L (3-11); BUN 23 mg/dL (7-18); CO2 24.6 mmol/L (21.0-32.0); CREATININE 0.6 mg/dL (0.70-1.30); Calcium 9.5 mg/dL (8.5-10.1); Chloride 108 mmol/L (98-107); Glucose 96 mg/dL (74-106); Potassium 3.8 mmol/L (3.5-5.1); Sodium 140 mmol/L (136-145)
[2021-07-06 07:15] LABS: Magnesium 1.8 mg/dL (1.8-2.4)
[2021-07-06 08:00] VITALS: BP 128/83; PULSE 73; RESP 18; TEMP 37.4; O2SAT 96
[2021-07-06] MEDS: Magnesium Chloride 64 MG TABCR 128 MG PO (10:09)
[2021-07-06] MEDS: Polyethylene Glycol 3350 17 GM PACKET PO (10:10)
[2021-07-06] MEDS: Ascorbic Acid 500 MG TAB PO (10:10)
[2021-07-06] MEDS: Protein Nutritional Supplement 16 GM 1 OUNCE PACKET PO (10:10)
[2021-07-06] MEDS: Fluticasone NASAL SPRAY 16 GM BTL NS (10:10)
[2021-07-06] MEDS: Multivitamin w/Minerals TAB 1 TAB PO (10:11)
[2021-07-06] MEDS: diazePAM 2 MG TAB PO (10:11)
[2021-07-06] MEDS: Docusate Sodium 100 MG CAP PO (10:11)
[2021-07-06] MEDS: Senna TAB 2 TAB PO (10:11)
[2021-07-06] MEDS: amLODIPine 10 MG TAB PO (10:11)
[2021-07-06] MEDS: Pantoprazole 40 MG TABCR PO (10:12)
[2021-07-06] MEDS: Normal Saline Flush 10 ML SYR IVP (10:15)
--- NOTE | 2021-07-06 10:57 | NUR.NOTE ---
Nursing Note: Patient has been demanding today, has made accusation that staff is not immediately addressing his needs as he wants. attempt to explain to patient that the patients needs require more than one attendant to safely achieve his needs. Further attempted to explain to the patient that the census of the unit was very heavy today, and that staff was diligently working to meet the needs of the entire unit, and that we would address his need of getting dressed and transferred to the chair as soon as the proper amount of staff was available to assist with this activity. Patient was not happy with this answer, saying it was not his problem that staff was needed to assist him with dressing and transfer. [facility] and jamilah are made aware of this interaction
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
== END 2021-07-06 13:53 | disposition swing bed (61) | DRG 91 ==
LOC: MS 06-26 09:45 → ICU 06-26 16:30 → MS 06-27 10:10
PROVIDERS: General Practice; Internal Medicine; Nurse Practitioner Acute Care; Nurse Practitioner Family; Admitting Provider Family Medicine; PCP Nurse Practitioner Family; Visit Provider Family Medicine
DX: G92 Toxic encephalopathy (principal); L89.324 Pressure ulcer of left buttock, stage 4; L89.314 Pressure ulcer of right buttock, stage 4; G82.50 Quadriplegia, unspecified; M46.28 Osteomyelitis of vertebra, sacral and sacrococcygeal region; I82.411 Acute embolism and thrombosis of right femoral vein; K59.2 Neurogenic bowel, not elsewhere classified; K91.2 Postsurgical malabsorption, not elsewhere classified; R44.2 Other hallucinations; T40.415A Adverse effect of fentanyl or fentanyl analogs, initial encounter; Y92.230 Patient room in hospital as the place of occurrence of the external cause; Z93.3 Colostomy status; Z93.51 Cutaneous-vesicostomy status; F41.9 Anxiety disorder, unspecified; K59.09 Other constipation; Z66 Do not resuscitate; E87.6 Hypokalemia; D50.9 Iron deficiency anemia, unspecified; N31.8 Other neuromuscular dysfunction of bladder; S14.156S Other incomplete lesion at C6 level of cervical spinal cord, sequela; W17.81XS Fall down embankment (hill), sequela; E83.52 Hypercalcemia; R41.0 Disorientation, unspecified; L89.619 Pressure ulcer of right heel, unspecified stage; L89.892 Pressure ulcer of other site, stage 2; S31.105D Unspecified open wound of abdominal wall, periumbilic region without penetration into peritoneal cavity, subsequent encounter; X58.XXXD Exposure to other specified factors, subsequent encounter; R50.2 Drug induced fever
CPT/HCPCS: 97597; 36410; 36415; 80048; 80053; 80307; 82550; 84145; 87040; 87493; 87635; 97140; 97167; 97535; J1650; Q3014; 71045; 80202; 81003; 81015; 82140; 83605; 83735; 84134; 85025; 85379; 86140; 87086; 93970; 99223; 99232; 99233; 99239; J0630; J0690; J1200; J1630; J2060; J2310; J3475; J3480; J3490

== ENCOUNTER 2021-07-06 12:50 | Inpatient (IN) | payer BC, SELFPAY ==
[2021-07-06] MEDS: diazePAM 2 MG TAB PO ×2 (14:32→19:51)
[2021-07-06] MEDS: Docusate Sodium 100 MG CAP PO ×2 (14:32→19:52)
--- NOTE | 2021-07-06 14:35 | NUR.NOTE ---
Nursing Note: patient continues to be irate. He was yelling and swearing at this nurse as well as his caregiver Nicki. He is told that he cannot transfer to a wheelchair , that he must use the recliner as he requires a chair that reclines in his situation. Yells and swears at nursing, stating he would throw himself on the floor and crawl out of here. Nursing changes focus to chronic care nurse who is in tears while trying to arrange pants and underwear on the patient. Nursing gives education to the chronic care nurse on safely getting these articles of clothing on the patient maintaining the integrity of the ostomy and supra pubic. With assistance from nursing she is able to dress the patient. Patient demands to speak to the provider , she is made aware
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
--- NOTE | 2021-07-06 17:51 | NUR.NOTE ---
Addendum entered by Iris Herrmann 07/06/21 18:12: pt also stated he didn't care what it took but he was leaving this place tomorrow, this place is [facility] Original Note: This GRINDING SUPERVISOR went into this patients room to assist him with his breakfast tray at 8:45, GRINDING SUPERVISOR assisted this pt with his breakfast. After that the pt demanded he get washed up, we washed up then pt stated that this GRINDING SUPERVISOR needed to get him dressed and into the chair. I then stated that I needed to get help because I legally and physically cannot get him in the chair by myself. He then proceeded to tell me that I needed to get him in there now he did not care that I needed help. pt then told me this place is bullshit. GRINDING SUPERVISOR finished washing the pt up then left the room and went to notify RN. At 1200 when lunch time came, this GRINDING SUPERVISOR went into the pt's room to assist with lunch. pt stated that was going to wait until his family came to get him clothes so he could get dressed to go outside. While GRINDING SUPERVISOR was helping pt eat pt informed me that he would be going outside in a regular wheelchair not in that stupid recliner chair. pt notified RN that pt sated this. At 1430 RN and GRINDING SUPERVISOR got the pt to the chair. pt stated wow you guys really do not know how to do your job wow about time you listen to me no one ever listens to the pt you all are a bunch of morons GRINDING SUPERVISOR then proceeded to get pt in the chair and situated. GRINDING SUPERVISOR had to step out once pt was safely in the chair because pt made GRINDING SUPERVISOR cry. Provider went into the room to talk to pt then had asked GRINDING SUPERVISOR to go back into room for a minute. Pt then apologized to GRINDING SUPERVISOR. GRINDING SUPERVISOR went outside with pt, the whole time pt was outside he would not talk to GRINDING SUPERVISOR when asked a question, pt did stated that the provider Magi was a bitch and he doesn't want anything to do with that bitch again. GRINDING SUPERVISOR brought pt back inside and to his room. The whole time the pt was talking to GRINDING SUPERVISOR he was using a very angry voice and yelling. Nursing Note:
[2021-07-06] MEDS: Enoxaparin 40 MG/0.4 ML SYR SC (18:05)
[2021-07-06 19:30] VITALS: BP 135/75; PULSE 91; RESP 18; TEMP 36.3; O2SAT 99
[2021-07-06] MEDS: Senna TAB 2 TAB PO (19:51)
[2021-07-06] MEDS: Magnesium Chloride 64 MG TABCR 128 MG PO (19:51)
[2021-07-06] MEDS: HYDROmorphone 2 MG TAB PO (19:52)
[2021-07-06] MEDS: Ascorbic Acid 500 MG TAB PO (19:53)
[2021-07-06] MEDS: Normal Saline Flush 10 ML SYR IVP (19:53)
[2021-07-06] MEDS: Protein Nutritional Supplement 16 GM 1 OUNCE PACKET PO (19:53)
[2021-07-06] MEDS: Acetaminophen 500 MG TAB 1000 MG PO (22:37)
[2021-07-06] MEDS: Melatonin 3 MG TAB 9 MG PO (22:37)
[2021-07-06 22:52] VITALS: BP 134/72; PULSE 89; RESP 18; TEMP 36.6; O2SAT 98
[2021-07-07] MEDS: Acetaminophen 500 MG TAB 1000 MG PO ×3 (07:27→20:20)
[2021-07-07] MEDS: Pantoprazole 40 MG TABCR PO (07:28)
[2021-07-07] MEDS: Magnesium Chloride 64 MG TABCR 128 MG PO ×2 (07:52→20:19)
[2021-07-07] MEDS: diazePAM 2 MG TAB PO ×3 (07:52→20:20)
[2021-07-07] MEDS: Ascorbic Acid 500 MG TAB PO ×2 (07:52→20:20)
[2021-07-07] MEDS: Multivitamin w/Minerals TAB 1 TAB PO (07:52)
[2021-07-07] MEDS: Polyethylene Glycol 3350 17 GM PACKET PO (07:52)
[2021-07-07] MEDS: Protein Nutritional Supplement 16 GM 1 OUNCE PACKET PO ×2 (07:52→20:19)
[2021-07-07] MEDS: Senna TAB 2 TAB PO ×2 (07:52→20:20)
[2021-07-07] MEDS: amLODIPine 10 MG TAB PO (07:53)
[2021-07-07] MEDS: Collagenase 30 GM TUBE TP (07:54)
[2021-07-07] MEDS: Docusate Sodium 100 MG CAP PO ×3 (07:59→20:20)
[2021-07-07 09:09] VITALS: BP 116/62; PULSE 80; RESP 18; TEMP 36.4; O2SAT 97
[2021-07-07] MEDS: Enoxaparin 40 MG/0.4 ML SYR SC (18:02)
[2021-07-07] MEDS: HYDROmorphone 2 MG TAB PO ×2 (18:02→23:14)
--- NOTE | 2021-07-07 19:01 | CM.SWINGPC ---
- If Service Date Differs Date of service: 07/06/21 Time of Service: 15:00 Swingbed Plan of Care Plan of care: SWING BED PROGRAM ACTIVITIES/DISCHARGE PLAN OF CARE ACTIVITIES PLAN Date: Identified Need: Intervention/Plan: Initials DISCHARGE PLAN Date: Identified Need: Intervention/Plan: Initials
--- NOTE | 2021-07-07 19:02 | CMSA_ITS ---
- If Service Date Differs Date of service: 07/06/21 Time of Service: 15:30 SB Psychosocial/Act.Assessment - Hospital Admission Admission Date: 02/22/21 Admission From:: ED - Swing Bed Admission Swing Bed Admit Date:: 07/06/21 Swing Bed Level of Care: Level 1/SNF - Social Supports PREVIOUS FUNCTIONAL STATUS/SOCIAL/FAMILY SUPPORTS:: Favio had been at [facility] for 5 weeks prior to admission to [facility]. He had a fall on which resulted in a C6-C7 dislocation with subsequent paraplegia. He has some use of his arms but has limited use of his hands and is unable to move his lower extremities. Favio states he can do some of his own care but needs help with bathing, eating and transfers. Favio has 2 adullt children and supportive parents who are in the area. - Medical History PAST MEDICAL HISTORY/PAST SURGICAL HISTORY:: Medical History (Updated 02/20/21 @ 22:10 by Lauri Larry MD). Acute embolism and thrombosis of deep vein of right lower extremity. Anxiety disorder. C. difficile colitis. Dislocation of C6/C7 cervical vertebrae. Fall down embankment. Fusion of spine. Hypotension. Major depressive disorder. Neurogenic bladder. Quadriplegia
--- NOTE | 2021-07-07 19:03 | PDOC.CMPRO ---
- If Service Date Differs Date of service: 07/06/21 Time of Service: 14:00 Care Management Progress Note S/O: Favio states that he is doing well. He will likely be transitioned back to SB-1 within the next day or 2 if he continues to improve and remains afebrile. A:56 year old male admitted on 02/22/21 with constipation. He has had a complicated course which has included several SB-1 stays as well as acute admissions. P: Transition to SWB1 vs transfer home with Nicki once medically cleared. Favio is sill waiting [employer] Medicaid approval. CM will continue to support Favio, his family and assess for discharge planning considerations.
[2021-07-07] MEDS: Melatonin 3 MG TAB 9 MG PO (20:20)
[2021-07-07 23:10] VITALS: BP 111/69; PULSE 80; RESP 19; TEMP 37; O2SAT 96
[2021-07-08] MEDS: Polyethylene Glycol 3350 17 GM PACKET PO (08:04)
[2021-07-08] MEDS: Docusate Sodium 100 MG CAP PO ×3 (08:04→20:03)
[2021-07-08] MEDS: Protein Nutritional Supplement 16 GM 1 OUNCE PACKET PO ×2 (08:04→20:01)
[2021-07-08] MEDS: diazePAM 2 MG TAB PO ×3 (08:04→20:03)
[2021-07-08] MEDS: Acetaminophen 500 MG TAB 1000 MG PO ×3 (08:05→20:04)
[2021-07-08] MEDS: Pantoprazole 40 MG TABCR PO (08:05)
[2021-07-08] MEDS: Multivitamin w/Minerals TAB 1 TAB PO (08:05)
[2021-07-08] MEDS: Ascorbic Acid 500 MG TAB PO ×2 (08:05→20:04)
[2021-07-08] MEDS: Senna TAB 2 TAB PO ×2 (08:05→20:03)
[2021-07-08] MEDS: Magnesium Chloride 64 MG TABCR 128 MG PO ×2 (08:05→20:04)
[2021-07-08] MEDS: amLODIPine 10 MG TAB PO (08:05)
[2021-07-08] MEDS: Collagenase 30 GM TUBE TP (08:06)
[2021-07-08 08:17] VITALS: BP 133/84; PULSE 71; RESP 18; TEMP 36.9; O2SAT 96
[2021-07-08] MEDS: Enoxaparin 40 MG/0.4 ML SYR SC (18:01)
[2021-07-08 19:56] VITALS: BP 118/73; PULSE 83; RESP 18; TEMP 37.3; O2SAT 97
[2021-07-08] MEDS: Melatonin 3 MG TAB 9 MG PO (20:02)
[2021-07-08 20:04] VITALS: TEMP 37.3
[2021-07-09 01:42] VITALS: BP 115/74; PULSE 74; RESP 18; TEMP 37.3; O2SAT 96
[2021-07-09] MEDS: Acetaminophen 500 MG TAB 1000 MG PO ×2 (06:20→22:02)
[2021-07-09 07:18] VITALS: BP 133/83; PULSE 71; RESP 18; TEMP 37.2; O2SAT 94
[2021-07-09] MEDS: Pantoprazole 40 MG TABCR PO (08:15)
[2021-07-09] MEDS: Collagenase 30 GM TUBE TP (08:15)
[2021-07-09] MEDS: Senna TAB 2 TAB PO ×2 (08:15→19:51)
[2021-07-09] MEDS: amLODIPine 10 MG TAB PO (08:16)
[2021-07-09] MEDS: Ascorbic Acid 500 MG TAB PO ×2 (08:16→19:51)
[2021-07-09] MEDS: Protein Nutritional Supplement 16 GM 1 OUNCE PACKET PO ×2 (08:16→19:52)
[2021-07-09] MEDS: Multivitamin w/Minerals TAB 1 TAB PO (08:16)
[2021-07-09] MEDS: Polyethylene Glycol 3350 17 GM PACKET PO (08:16)
[2021-07-09] MEDS: diazePAM 2 MG TAB PO ×2 (08:16→19:51)
[2021-07-09] MEDS: Docusate Sodium 100 MG CAP PO ×2 (08:16→19:52)
[2021-07-09] MEDS: Magnesium Chloride 64 MG TABCR 128 MG PO ×2 (08:16→19:51)
--- NOTE | 2021-07-09 13:00 | W.PALPGNOTE ---
Date of service: 07/09/21 Time of Service: 07:00 Assessment and Plan Assessment and plan (1) Chronic recurrent multifocal osteomyelitis: Status: Chronic (2) Encephalopathy: Status: Resolved (3) Quadriplegia: Status: Chronic (4) Palliative care encounter: Status: Acute Assessment and plan: There has been a change in his mood. In the past he always was very cooperative kind and complementary to staff. Await his return from [facility] to see if there are options for him regarding his quadriplegia Subjective Subjective Interval history since last seen: Favio was drowsy while I was there. Plan is for him to go down to [facility] to have an evaluation regarding his quadriplegia Staff states that he has been in a fairly poor mood of late. His encephalopathy was felt to be secondary to a contaminate in the home marijuana that he had during his time out of the hospital with family Exam Narrative Exam Narrative: Breathing easily. Appears comfortable Objective Last Vital Signs Temp 99.0 F 07/09/21 07:18 Pulse 71 07/09/21 07:18 Resp 18 07/09/21 07:18 BP 133/83 07/09/21 07:18 Pulse Ox 94 07/09/21 07:18
--- NOTE | 2021-07-09 17:57 | WOUNDCONS_ITS ---
- If Service Date Differs Date of service: 07/09/21 Time of Service: 07:30 Wound Initial Evaluation Narrative: weekly reevaluation done for Mr. Velasquez today. Time was limited for consult d/t him having an appointment in [place] Today. Only ischial tuberosities changed and photographed. Favio reports sitting up in recliner chair for periods of time longer than 2 hours over the last couple of days. He had new medical problems the last couple of weeks with encephalopathy and AMS which resulted in decreased intake of protein and calories. Pt is still on Arjo bed on alternating air setting. There is a gel cushion in his recliner chair. Wounds look relatively unchanged from previous week, though right side did have some green malodorous drainage on aquacell. edges slightly macerated. left wound had area of dark red/purple tissue, likely from pressure (? from sitting in recliner). Eliane Dwason's latest progress note states Id and reccomended d/c'ing abx and hyperbaric chamber or flap surgery. we have been pursuing aggressive wound care here at [facility] since 02/21/21. Pt has h ad many setbacks [facility] which has made the course of healing complicated. Wounds are chronic in nature, known osteomyelitis not currently on abx, probable biofilm present. It appears we have reached the point where Pt needs more than the wound team at [facility] can give him to help heal Ischial wounds. Recommend wound care referral to wound care clinic that can help him with possible graft or flap placement. Until this can happen and while Mr. Velasquez is a patient here wound team will continue to follow evidence based practice and basic wound care principles to keep his wound from deteriorating. Encourage Mr. Velasquez to eat protein will benefit him greatly. Recommend continuing current dressing treatments @ this time, except restart anasept cleanser d/t green drainage from right ischial tubeosity. d/c skintegrity cleanser.
[2021-07-09] MEDS: HYDROmorphone 2 MG TAB PO (22:02)
[2021-07-09] MEDS: Melatonin 3 MG TAB 9 MG PO (22:02)
[2021-07-10 00:40] VITALS: BP 102/59; PULSE 77; RESP 18; TEMP 36.8; O2SAT 96
[2021-07-10] MEDS: HYDROmorphone 2 MG/ML VIAL IVP (00:40)
[2021-07-10] MEDS: Normal Saline Flush 10 ML SYR IVP (00:43)
[2021-07-10 03:45] VITALS: BP 99/58; PULSE 76; RESP 16; TEMP 36.5; O2SAT 99
[2021-07-10] MEDS: HYDROmorphone 2 MG TAB PO ×2 (03:47→20:46)
[2021-07-10] MEDS: Acetaminophen 500 MG TAB 1000 MG PO ×2 (05:28→18:48)
[2021-07-10] MEDS: Bacitracin 1 PACKET (07:24)
[2021-07-10 08:47] VITALS: BP 120/79; PULSE 71; RESP 18; TEMP 37.2; O2SAT 96
[2021-07-10] MEDS: Polyethylene Glycol 3350 17 GM PACKET PO (08:57)
[2021-07-10] MEDS: Senna TAB 2 TAB PO ×2 (08:58→20:45)
[2021-07-10] MEDS: Protein Nutritional Supplement 16 GM 1 OUNCE PACKET PO ×2 (08:58→20:45)
[2021-07-10] MEDS: Magnesium Chloride 64 MG TABCR 128 MG PO ×2 (08:58→20:45)
[2021-07-10] MEDS: Multivitamin w/Minerals TAB 1 TAB PO (08:58)
[2021-07-10] MEDS: diazePAM 2 MG TAB PO ×2 (08:58→20:46)
[2021-07-10] MEDS: amLODIPine 10 MG TAB PO (08:59)
[2021-07-10] MEDS: Ascorbic Acid 500 MG TAB PO ×2 (09:00→20:46)
[2021-07-10] MEDS: Docusate Sodium 100 MG CAP PO ×2 (10:06→20:46)
[2021-07-10] MEDS: Pantoprazole 40 MG TABCR PO (10:06)
[2021-07-10] MEDS: Collagenase 30 GM TUBE TP (18:48)
[2021-07-10] MEDS: Enoxaparin 40 MG/0.4 ML SYR SC (18:48)
[2021-07-10 19:50] VITALS: BP 111/61; PULSE 87; RESP 18; TEMP 37.2; O2SAT 95
[2021-07-10] MEDS: Melatonin 3 MG TAB 9 MG PO (20:45)
[2021-07-10 23:25] VITALS: BP 112/72; PULSE 78; RESP 19; TEMP 37.2; O2SAT 94
[2021-07-11] MEDS: Magnesium Chloride 64 MG TABCR 128 MG PO ×2 (08:42→22:31)
[2021-07-11] MEDS: Ascorbic Acid 500 MG TAB PO ×2 (08:42→22:28)
[2021-07-11] MEDS: diazePAM 2 MG TAB PO ×3 (08:43→22:28)
[2021-07-11] MEDS: Pantoprazole 40 MG TABCR PO (08:43)
[2021-07-11] MEDS: Senna TAB 2 TAB PO ×2 (08:43→22:27)
[2021-07-11] MEDS: Docusate Sodium 100 MG CAP PO ×3 (08:43→22:28)
[2021-07-11] MEDS: amLODIPine 10 MG TAB PO (08:43)
[2021-07-11] MEDS: Acetaminophen 500 MG TAB 1000 MG PO ×3 (08:44→22:28)
[2021-07-11] MEDS: Multivitamin w/Minerals TAB 1 TAB PO (08:44)
[2021-07-11] MEDS: Protein Nutritional Supplement 16 GM 1 OUNCE PACKET PO ×2 (08:44→22:27)
[2021-07-11] MEDS: Polyethylene Glycol 3350 17 GM PACKET PO (08:44)
[2021-07-11 08:45] VITALS: BP 106/71; PULSE 71; RESP 18; TEMP 36.6; O2SAT 93
--- NOTE | 2021-07-11 09:08 | PDOC.CMACT ---
- If Service Date Differs Date of service: 07/11/21 Time of Service: 09:08 Care Management Activity Note S/O:Favio enjoys listening to music and watching tv shows and movies on his tablet. He communicates frequently with his friends and family via text messages and phone calls and has visitors almost every day. Favio enjoys going outside in his recliner on nice days and visits with family on those occasions. Favio went to [facility] in [place], [place] on Thursday for his appointment with Dr. Miller. No reports have been received from [facility], where the spinal injury program is located, regarding the visit. Favio shared that he was told that he is definitely a candidate for the surgery that could possibly result in the return of functioning of his hands and upper extremities. Favio has verbalized that he is not sure if he wants the surgery and stated I am ready to just give up. He apparently did not have the EEG that was scheduled and that would be necessary before the surgery can be scheduled. This information was given to CM by Nicki. A: Favio is a 56 year old man admitted to [facility] on February 22, 2021 with constipation. He has gone back and forth between swing bed and acute status as he has developed several acute issues and surgeries. He now has a colostomy and suprapubic catheter. P: Favio's discharge plan is still not clear. He wants to go home to [facility]'s [place] and she is willing to take him, but lacks the resources to provide the care he needs. His [employer] Medicaid application is still pending. CM will continue to support Favio and assess for ongoing discharge planning needs.
[2021-07-11] MEDS: Collagenase 30 GM TUBE TP (14:24)
[2021-07-11] MEDS: Enoxaparin 40 MG/0.4 ML SYR SC (18:46)
[2021-07-11 21:57] VITALS: BP 115/68; PULSE 83; RESP 18; TEMP 37.3; O2SAT 97
[2021-07-11] MEDS: Melatonin 3 MG TAB 9 MG PO (22:28)
--- NOTE | 2021-07-12 | DI.RAD_ITS ---
Exam(s) XR PORTABLE CHEST AP EXAM: XR PORTABLE CHEST AP CLINICAL HISTORY: fever TECHNIQUE: 2D digital imaging was performed. COMPARISON: CR XR PORTABLE CHEST AP from 07/02/2021 FINDINGS: MEDIASTINUM: Normal. HEART: Normal. PULMONARY VASCULATURE: Normal. LUNGS: Clear. PLEURAL SPACE: No pleural effusion or pneumothorax. BONE:Within normal limits for the patient's age. Prior spinal surgery. OTHER FINDINGS:There is a radiopaque structure overlying the epigastrium. IMPRESSION: No acute pulmonary findings. DATA REPOSITORY: RADIATION DOSE DELIVERED:
[2021-07-12 08:35] LABS: HCT 36.1 % (40.0-50.0); HGB 11.6 g/dL (13.5-17.5); MCH 28.8 pg (27.0-33.0); MCHC 32.1 % (32.0-36.0); MCV 89.6 fL (80-95); MPV 10.3 fL (8.0-11.0); Platelet Count 208 10^3/uL (130-400); RBC 4.03 10^6/uL (4.36-5.78); RDW 14.6 % (11.8-14.1); RDW-SD 47.6 fL; WBC 6.98 10^3/uL (4.4-10.8)
[2021-07-12] MEDS: Senna TAB 2 TAB PO ×2 (08:58→20:59)
[2021-07-12] MEDS: Ascorbic Acid 500 MG TAB PO ×2 (08:58→20:59)
[2021-07-12] MEDS: Multivitamin w/Minerals TAB 1 TAB PO (08:58)
[2021-07-12] MEDS: Docusate Sodium 100 MG CAP PO ×3 (08:58→20:59)
[2021-07-12] MEDS: amLODIPine 10 MG TAB PO (08:58)
[2021-07-12] MEDS: Magnesium Chloride 64 MG TABCR 128 MG PO ×2 (08:58→20:58)
[2021-07-12] MEDS: Protein Nutritional Supplement 16 GM 1 OUNCE PACKET PO ×2 (09:01→20:58)
[2021-07-12] MEDS: diazePAM 2 MG TAB PO ×3 (09:01→20:59)
[2021-07-12] MEDS: Polyethylene Glycol 3350 17 GM PACKET PO (09:01)
[2021-07-12] MEDS: Pantoprazole 40 MG TABCR PO (09:01)
[2021-07-12] MEDS: Acetaminophen 500 MG TAB 1000 MG PO ×3 (09:01→22:40)
[2021-07-12 09:44] VITALS: BP 136/91; PULSE 78; RESP 24; TEMP 37.3; O2SAT 97
--- NOTE | 2021-07-12 11:33 | PCPN_ITS ---
Date of service: 07/12/21 Time of Service: 09:33 Assessment and Plan Assessment and plan (1) Chronic recurrent multifocal osteomyelitis: Status: Chronic (2) Delirium: Status: Resolved (3) Encephalopathy: Status: Resolved (4) Palliative care encounter: Status: Acute Assessment and plan: Depression?at this point I would not recommend restarting antidepressants. I think he needs further washout. From all of the psych meds that he had been on. Staff does not feel that it was withdrawal of these meds because his delirium and encephalopathy. They feel he was off of the meds prior to the hallucinations for long enough time. We will continue to follow. Depression each time I see Favio he is more understanding of his prognosis. He was still hoping to be able to walk again which will probably never happen. He is not sure if he wants to go through an operation to help his hand movement because he is afraid that he might lose what he does have. I acknowledged the horror of going through the hallucinations that he did. I did contact some people but he asked me to so that they would reconnect with him (5) Major depressive disorder: Status: Chronic Qualifiers: Major depression recurrence: single episode Active/Remission status: currently active Major depression episode severity: moderate Qualified Code(s): F32.1 - Major depressive disorder, single episode, moderate Subjective Subjective Interval history since last seen: Favio did go to [facility] to see if there could be an operation which would help with utilizing his hands. He has to go b [facility] for further testing. This has been scheduled for about 2 weeks. He is getting very discouraged and worried that people are forgetting him. He knows he has been more irritable lately. He feels like the shock from coming off all of his psych meds are extreme on both his mood and all of that he went through. He states that his hallucinations felt very very real. He can still remember them vividly. He is extremely afraid of snakes and he saw snakes coming in and out of all of his orifices. He also saw animals and then himself being caught up on a corn combine. Again these are very vivid and just recalling the hallucinations were scary to him. He does not ever want to go through what he went through the last few weeks. He is very down presently Exam Narrative Exam Narrative: Favio was quite productive with me. He was more depressed than I have seen him for a while. His heart was regular. He does have some air movement but there are diminished sounds. He was cooperative and did turn off his music when I entered the room. I did not look at his wound but by report it is improving Objective Last Vital Signs Temp 99.1 F 07/12/21 09:44 Pulse 78 07/12/21 09:44 Resp 24 07/12/21 09:44 BP 136/91 H 07/12/21 09:44 Pulse Ox 97 07/12/21 09:44 Laboratory Results - last 24 hr 07/12/21 08:27 WBC 6.98 RBC 4.03 L Hgb 11.6 L Hct 36.1 L MCV 89.6 MCH 28.8 MCHC 32.1 RDW 14.6 H Plt Count 208 MPV 10.3
[2021-07-12] MEDS: Collagenase 30 GM TUBE TP (14:43)
--- NOTE | 2021-07-12 15:54 | NUR.NOTE ---
Nursing Note: At 1330, this RN was in the room talking with the patient. This RN asked pt if he needed anything and he stated no unless you can get me a gun and a bullet. I told pt this is not an option. Emotional support given.
[2021-07-12] MEDS: Enoxaparin 40 MG/0.4 ML SYR SC (17:58)
[2021-07-12 20:35] LABS: Bilirubin Negative (Negative); Blood Negative (Negative); Clarity Cloudy (Clear); Glucose Negative (Negative); Ketones Negative (Negative); Leukocyte Esterase Large (Negative); Nitrite Negative (Negative); Urobilinogen 0.2 EU/dL (Up TO 0.2); pH >= 9.0 (5-8)
[2021-07-12 20:44] LABS: Bacteria Many HPF (Negative); C & S Indicated? Yes; Casts Negative LPF (Negative); Crystals Negative HPF (Negative); Epithelial Cells Few HPF (Negative); Mucus Moderate (Negative); RBC 0-2 HPF (0-2); WBC >50 HPF (0-5)
[2021-07-12] MEDS: Ibuprofen 600 MG TAB PO (20:52)
[2021-07-12] MEDS: Melatonin 3 MG TAB 9 MG PO (20:59)
[2021-07-12] MEDS: HYDROmorphone 2 MG TAB PO (20:59)
[2021-07-12 21:12] VITALS: BP 188/95; PULSE 62; RESP 20; TEMP 36.7; O2SAT 96
--- NOTE | 2021-07-12 21:59 | PGE_ITS ---
Date of Service Date of service: 07/12/21 Time of Service: 22:00 Assessment and Plan Assessment and plan (1) UTI (urinary tract infection): Status: Resolved Assessment and plan: Suspect impending urosepsis. Awaiting rest of work- up including stat CBC, BMP, urine culture, blood cultures, CRP, procalcitonin. While awaiting the studies will start him empirically with broad-spectrum antibiotics. Initially it was just go to treat him with fosfomycin but with his appearance looking more like urosepsis I will put him on cefepime and add daptomycin as the patient has a recent history of vancomycin resistant enterococci UTI. Once I have the results of his work-up I will decide on transitioning him over into it acute inpatient status from swing bed status. I will also check a chest x-ray and EKG and troponin to be complete to make sure I am not missing an occult ACS or an occult pneumonia. However the patient is not hypoxemic and not short of breath and chest exam is clear making pneumonia unlikely. With Favio's chronic suprapubic catheter and frequent UTIs this is the most likely source. His suprapubic catheter will need to be changed as well. Qualifiers: Urinary tract infection type: catheter-associated UTI Indwelling urinary catheter type: indwelling urethral catheter Encounter type: initial encounter Qualified Code(s): T83.511A - Infection and inflammatory reaction due to indwelling urethral catheter, initial encounter; N39.0 - Urinary tract infection, site not specified Subjective Subjective Interval history since last seen: CTSP d/t elevated blood pressure and complaint of chills and diaphoresis. BP up to 188/95, no CP or dyspnea. he says that he feels chilled. He looks erythemaous and diaphoretic. Exam Narrative Exam Narrative: Favio is alert and oriented and answering questions appropriately. He is in no acute pain but feels chilling with rigors. Chest is clear to auscultation Heart regular rate and rhythm Abdomen soft nontender nondistended with a suprapubic catheter that has a lot of white sediment Objective Last Vital Signs Temp 36.7 C 07/12/21 21:12 Pulse 62 07/12/21 21:12 Resp 20 07/12/21 21:12 BP 188/95 H 07/12/21 21:12 Pulse Ox 96 07/12/21 21:12 Laboratory Results - last 24 hr 07/12/21 07/12/21 08:27 18:28 WBC 6.98 RBC 4.03 L Hgb 11.6 L Hct 36.1 L MCV 89.6 MCH 28.8 MCHC 32.1 RDW 14.6 H Plt Count 208 MPV 10.3 Urine Color Yellow Urine Clarity Cloudy Urine pH >= 9.0 H Ur Specific [place] 1.010 Urine Protein >=300 H Urine Ketones Negative Urine Blood Negative Urine Nitrite Negative Urine Bilirubin Negative Urine Urobilinogen 0.2 Ur Leukocyte Esterase Large H Urine RBC 0-2 Urine WBC >50 H Ur Epithelial Cells Few Urine Crystals Negative Urine Bacteria Many Urine Casts Negative Urine Mucus Moderate Ur Culture Indicated? Yes Urine Glucose Negative Reviewed Pertinent PMH: Yes Objective Narrative Objective Narrative: Urine has a pH greater than 9.0 that is cloudy with greater than 300 mg/dL protein and large amount of leukocyte esterase with greater than 50 white cells few epithelial cells and many bacteria and moderate mucus
[2021-07-12 22:22] LABS: Lactate 1.3 mmol/L (0.6-1.4)
[2021-07-12 22:23] LABS: Abs Immature Grans 0.06 10^3/uL (0.0-0.06); Absolute Basophil Count 0.04 10^3/uL (0.0-0.2); Absolute Lymphocyte Count 1.71 10^3/uL (1.2-3.4); Absolute Neutrophil Count 10.69 10^3/uL (1.2-6.7); Basophils % 0.3; Eosinophils % 1.5; HCT 41.4 % (40.0-50.0); HGB 13.3 g/dL (13.5-17.5); Immature Grans % 0.4; Lymphocytes % 12.6; MCH 29.2 pg (27.0-33.0); MCHC 32.1 % (32.0-36.0); MCV 90.8 fL (80-95); MPV 10.2 fL (8.0-11.0); Monocytes % 6.6; Neutrophils % 78.6; Nucleated RBC 0 %; Platelet Count 234 10^3/uL (130-400); RBC 4.56 10^6/uL (4.36-5.78); RDW 14.5 % (11.8-14.1); RDW-SD 48.1 fL
[2021-07-12 22:32] LABS: C-Reactive Protein 0.71 mg/dL (0.0-0.3)
[2021-07-12 22:39] LABS: Anion Gap 6.6 mmol/L (3-11); BUN 34 mg/dL (7-18); CO2 26.4 mmol/L (21.0-32.0); CREATININE 0.9 mg/dL (0.70-1.30); Calcium 9.8 mg/dL (8.5-10.1); Chloride 105 mmol/L (98-107); Glucose 116 mg/dL (74-106); Potassium 4.1 mmol/L (3.5-5.1); Sodium 138 mmol/L (136-145); Troponin I < 0.05 ng/mL (<0.06)
[2021-07-12] MEDS: Fosfomycin Tromethamine 3 GM PACKET PO (22:40)
[2021-07-12] MEDS: Normal Saline Flush 10 ML SYR IVP (22:41)
[2021-07-12 22:54] LABS: Procalcitonin < 0.1 ng/mL
--- NOTE | 2021-07-12 22:58 | DI.VRAD_ITS ---
PROCEDURE INFORMATION: Exam: XR Chest Exam date and time: 07/12/2021 9:53 PM Age: 56 years old Clinical indication: Fever TECHNIQUE: Imaging protocol: XR of the chest. Views: 1 view. COMPARISON: CR XR PORTABLE CHEST AP 07/02/2021 10:54 AM FINDINGS: Lungs: Unremarkable. No consolidation. Pleural spaces: Unremarkable. No pleural effusion. No pneumothorax. Heart/Mediastinum: Unremarkable. No cardiomegaly. Bones/joints: Unremarkable. Other findings: Some structure projects over the epigastrium. IMPRESSION: No acute disease Dictated and Authenticated by: Armando Garcia MD. Ordering:[facility] Whitney Haddad MD
[2021-07-13] MEDS: DAPTOmycin 500 MG in Normal Saline 50 ML 100 MG IVPB (00:25)
[2021-07-13] MEDS: Normal Saline 500 ML 30 ML IV (00:25)
[2021-07-13] MEDS: Normal Saline Flush 10 ML SYR IVP ×2 (00:26→20:09)
[2021-07-13] MEDS: traMADol 50 MG TAB 100 MG PO (00:54)
[2021-07-13] MEDS: CEFEPIME 2 GM in Normal Saline 100 ML IVPB ×3 (02:33→18:37)
[2021-07-13] MEDS: Acetaminophen 500 MG TAB 1000 MG PO ×3 (06:52→21:22)
[2021-07-13] MEDS: Pantoprazole 40 MG TABCR PO (06:53)
[2021-07-13 07:55] LABS: Abs Immature Grans 0.04 10^3/uL (0.0-0.06); Absolute Basophil Count 0.02 10^3/uL (0.0-0.2); Absolute Eosinophil Count 0.24 10^3/uL (0.0-0.7); Absolute Lymphocyte Count 1.44 10^3/uL (1.2-3.4); Absolute Monocyte Count 0.73 10^3/uL (0.1-0.8); Absolute Neutrophil Count 7.91 10^3/uL (1.2-6.7); Basophils % 0.2; Eosinophils % 2.3; HCT 35.8 % (40.0-50.0); HGB 11.4 g/dL (13.5-17.5); Immature Grans % 0.4; Lymphocytes % 13.9; MCH 28.8 pg (27.0-33.0); MCHC 31.8 % (32.0-36.0); MCV 90.4 fL (80-95); MPV 10.4 fL (8.0-11.0); Neutrophils % 76.2; Nucleated RBC 0 %; Platelet Count 222 10^3/uL (130-400); RBC 3.96 10^6/uL (4.36-5.78); RDW 14.5 % (11.8-14.1); RDW-SD 47.7 fL; WBC 10.38 10^3/uL (4.4-10.8)
[2021-07-13 08:06] VITALS: BP 109/64; PULSE 74; RESP 18; TEMP 36.8; O2SAT 95
[2021-07-13 08:16] LABS: ALT 32 U/L (16-63); AST 12 U/L (15-37); Albumin 3.4 g/dL (3.4-5.0); Alkaline Phosphatase 98 U/L (46-116); Anion Gap 11.4 mmol/L (3-11); BUN 37 mg/dL (7-18); Bilirubin, Total 0.3 mg/dL (0.2-1.0); CO2 21.6 mmol/L (21.0-32.0); CREATININE 0.7 mg/dL (0.70-1.30); Calcium 9.7 mg/dL (8.5-10.1); Chloride 106 mmol/L (98-107); Glucose 114 mg/dL (74-106); Sodium 139 mmol/L (136-145); Total Protein 7.1 g/dL (6.4-8.2)
[2021-07-13] MEDS: Senna TAB 2 TAB PO ×2 (09:14→20:08)
[2021-07-13] MEDS: Magnesium Chloride 64 MG TABCR 128 MG PO ×2 (09:14→20:08)
[2021-07-13] MEDS: Multivitamin w/Minerals TAB 1 TAB PO (09:15)
[2021-07-13] MEDS: Docusate Sodium 100 MG CAP PO ×3 (09:15→20:08)
[2021-07-13] MEDS: Ascorbic Acid 500 MG TAB PO ×2 (09:15→20:08)
[2021-07-13] MEDS: Ibuprofen 600 MG TAB PO ×3 (09:15→20:08)
[2021-07-13] MEDS: amLODIPine 10 MG TAB PO (09:15)
[2021-07-13] MEDS: diazePAM 2 MG TAB PO ×3 (09:16→20:08)
[2021-07-13] MEDS: Polyethylene Glycol 3350 17 GM PACKET PO (09:16)
[2021-07-13] MEDS: Collagenase 30 GM TUBE TP (09:16)
[2021-07-13] MEDS: Protein Nutritional Supplement 16 GM 1 OUNCE PACKET PO ×2 (09:17→20:07)
[2021-07-13 15:30] VITALS: BP 138/74; PULSE 75; RESP 18; TEMP 36.3; O2SAT 98
[2021-07-13] MEDS: Enoxaparin 40 MG/0.4 ML SYR SC (18:37)
[2021-07-13] MEDS: Melatonin 3 MG TAB 9 MG PO (20:08)
[2021-07-13 20:10] VITALS: RESP 16; O2SAT 96
[2021-07-13 23:00] VITALS: BP 113/74; PULSE 82; RESP 16; TEMP 36.5; O2SAT 95
[2021-07-14] MEDS: Normal Saline Flush 10 ML SYR IVP (02:33)
[2021-07-14] MEDS: CEFEPIME 2 GM in Normal Saline 100 ML IVPB ×3 (02:33→18:01)
[2021-07-14] MEDS: Acetaminophen 500 MG TAB 1000 MG PO ×2 (07:07→18:16)
[2021-07-14] MEDS: Pantoprazole 40 MG TABCR PO (07:08)
[2021-07-14 08:10] VITALS: BP 109/65; PULSE 70; RESP 18; TEMP 37.1; O2SAT 96
[2021-07-14] MEDS: diazePAM 2 MG TAB PO ×3 (09:18→21:10)
[2021-07-14] MEDS: Senna TAB 2 TAB PO ×2 (09:19→21:10)
[2021-07-14] MEDS: Multivitamin w/Minerals TAB 1 TAB PO (09:19)
[2021-07-14] MEDS: Magnesium Chloride 64 MG TABCR 128 MG PO ×2 (09:19→21:09)
[2021-07-14] MEDS: Ascorbic Acid 500 MG TAB PO ×2 (09:19→21:10)
[2021-07-14] MEDS: Ibuprofen 600 MG TAB PO ×2 (09:19→18:17)
[2021-07-14] MEDS: Docusate Sodium 100 MG CAP PO ×3 (09:19→21:09)
[2021-07-14] MEDS: amLODIPine 10 MG TAB PO (09:19)
[2021-07-14] MEDS: Polyethylene Glycol 3350 17 GM PACKET PO (09:20)
[2021-07-14] MEDS: Protein Nutritional Supplement 16 GM 1 OUNCE PACKET PO ×2 (09:20→21:09)
[2021-07-14] MEDS: Collagenase 30 GM TUBE TP (09:20)
[2021-07-14 15:30] VITALS: BP 135/72; PULSE 72; RESP 18; TEMP 37; O2SAT 96
[2021-07-14] MEDS: Enoxaparin 40 MG/0.4 ML SYR SC (18:01)
[2021-07-14] MEDS: HYDROmorphone 2 MG TAB PO (21:09)
[2021-07-14] MEDS: Melatonin 3 MG TAB 9 MG PO (21:09)
[2021-07-14 23:42] VITALS: BP 123/69; PULSE 75; RESP 18; TEMP 36.5; O2SAT 97
[2021-07-15] MEDS: CEFEPIME 2 GM in Normal Saline 100 ML IVPB ×3 (02:24→18:29)
[2021-07-15 08:51] VITALS: BP 97/58; PULSE 78; RESP 18; TEMP 37; O2SAT 91
[2021-07-15] MEDS: Collagenase 30 GM TUBE TP (09:19)
[2021-07-15] MEDS: Senna TAB 2 TAB PO ×2 (09:19→19:50)
[2021-07-15] MEDS: Polyethylene Glycol 3350 17 GM PACKET PO (09:19)
[2021-07-15] MEDS: Protein Nutritional Supplement 16 GM 1 OUNCE PACKET PO ×2 (09:19→19:48)
[2021-07-15] MEDS: Cholecalciferol (Vitamin D3) 1,000 UNIT TAB 1000 UNITS PO (09:19)
[2021-07-15] MEDS: diazePAM 2 MG TAB PO ×3 (09:19→19:49)
[2021-07-15] MEDS: Multivitamin w/Minerals TAB 1 TAB PO (09:19)
[2021-07-15] MEDS: Pantoprazole 40 MG TABCR PO (09:20)
[2021-07-15] MEDS: Magnesium Chloride 64 MG TABCR 128 MG PO ×2 (09:20→19:51)
[2021-07-15] MEDS: amLODIPine 10 MG TAB PO (09:20)
[2021-07-15] MEDS: Docusate Sodium 100 MG CAP PO ×3 (09:20→19:51)
[2021-07-15] MEDS: Ascorbic Acid 500 MG TAB PO ×2 (09:20→19:49)
[2021-07-15] MEDS: Normal Saline 500 ML 30 ML IV (10:15)
[2021-07-15 15:09] VITALS: BP 118/69; PULSE 85; RESP 19; TEMP 37.3; O2SAT 96
[2021-07-15] MEDS: Enoxaparin 40 MG/0.4 ML SYR SC (18:30)
[2021-07-15] MEDS: Normal Saline Flush 10 ML SYR IVP (19:48)
[2021-07-15] MEDS: Melatonin 3 MG TAB 9 MG PO (20:22)
[2021-07-15] MEDS: Ibuprofen 600 MG TAB PO (20:57)
[2021-07-15] MEDS: Acetaminophen 500 MG TAB 1000 MG PO (21:21)
[2021-07-15] MEDS: HYDROmorphone 2 MG TAB PO (21:37)
[2021-07-16] MEDS: CEFEPIME 2 GM in Normal Saline 100 ML IVPB ×3 (01:56→18:01)
[2021-07-16] MEDS: Normal Saline Flush 10 ML SYR IVP (01:56)
[2021-07-16 02:06] VITALS: BP 125/77; PULSE 69; RESP 20; TEMP 36.7; O2SAT 97
[2021-07-16 09:20] VITALS: BP 112/67; PULSE 73; RESP 16; TEMP 36.2; O2SAT 96
[2021-07-16] MEDS: Normal Saline 500 ML 30 ML IV (09:20)
[2021-07-16] MEDS: Polyethylene Glycol 3350 17 GM PACKET PO (09:21)
[2021-07-16] MEDS: Senna TAB 2 TAB PO ×2 (09:21→21:04)
[2021-07-16] MEDS: Protein Nutritional Supplement 16 GM 1 OUNCE PACKET PO ×2 (09:21→21:04)
[2021-07-16] MEDS: Pantoprazole 40 MG TABCR PO (09:22)
[2021-07-16] MEDS: Docusate Sodium 100 MG CAP PO ×3 (09:22→21:04)
[2021-07-16] MEDS: Ascorbic Acid 500 MG TAB PO ×2 (09:22→21:05)
[2021-07-16] MEDS: Magnesium Chloride 64 MG TABCR 128 MG PO ×2 (09:22→21:05)
[2021-07-16] MEDS: Multivitamin w/Minerals TAB 1 TAB PO (09:22)
[2021-07-16] MEDS: diazePAM 2 MG TAB PO ×3 (09:23→21:05)
[2021-07-16] MEDS: Cholecalciferol (Vitamin D3) 1,000 UNIT TAB 1000 UNITS PO (09:23)
[2021-07-16] MEDS: amLODIPine 10 MG TAB PO (09:23)
--- NOTE | 2021-07-16 10:36 | W.NUTRFU ---
Date of service: 07/16/21 Time of Service: 10:30 Nutritional Follow up NOTE: A: Mr. Velasquez continues to have excellent PO intake. He is 84 kg and 188 cm. BMI is 23.8 kg/m2 which is WNL. His weight has been entirely stable for the past month. Over the past 3 months and 5 months (admission), he has lost 11.5% of his body weight which does qualify as a significant loss. He does not likely meet the AND/ASPEN parameters for malnutrition however given his excellent PO and any loss of lean body mass may also be due to his clinical situation. His current daily intake includes liquid protein bid, Sinhala yogurt tid, pudding tid, Ensure Clear 16 oz/day, and high quality protein as an entree for each meal as well as 16 oz of aaliyah orlando and 2 homemade desserts daily, chips, fries and other high calorie foods that he states he enjoys. His daily caloric intake is 2800 calories per day (33 kcal/kg/day) and 140-160 g of protein per day (1.7-1.9 g/kg/day). This level of intake meets or exceeds his estimated nutritional needs. Nutrition Diagnosis: Increased nutritional needs related to healing/wounds. Intervention: With regard to Mr. Velasquez's intake at meals, he is demonstrating that he is eating to capacity. After 40 kcal/kg and 2.0 g protein/kg, energy and protein are not used efficiently. We could consider giving him the liquid protein tid instead of bid. I would also consider increasing his MVI to twice daily unless there is a contraindication from Pharmacy to do so. Monitoring and Evaluation: Will continue to monitor PO intake, weight, progress. Will evaluate nutrition care plan ongoing and adjust as needed. Time Spent in Nutritional Counseling and Treatment: 30 minutes
[2021-07-16] MEDS: Collagenase 30 GM TUBE TP (11:41)
[2021-07-16 16:12] VITALS: BP 140/84; PULSE 71; RESP 20; TEMP 36.8; O2SAT 94
--- NOTE | 2021-07-16 17:07 | CHAPLAIN ---
Favio was doing something on his iPad when I stopped in this afternoon. He told me that he went to his appointment at a rehab in [place] to see anything can be done to increase his movement in his hands, but that he hasn't heard anything back yet. He didn't have any visitors in his room this afternoon which is unusual. 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 According to Dr. Zhu's PC notes, Favio can vividly recall the hallucinations he had recently and they are scary to him. She also wrote that he appears more depressed than he has been lately. I will continue to visit.
[2021-07-16] MEDS: Enoxaparin 40 MG/0.4 ML SYR SC (18:02)
--- NOTE | 2021-07-16 18:22 | WOUNDCONS ---
- If Service Date Differs Date of service: 07/16/21 Time of Service: 18:22 Wound Initial Evaluation Narrative: weekly reevaluation done for Mr. Velasquez today. Foot wound dressed this morning, not taken down for photography @ this time, being managed by podiatry. Abdominal wound and osotomy not d/t be changed @ this time. Only ischial tuberosities changed and photographed for this reevaluation. See photos below Favio reports sitting up in recliner chair for periods of time longer than 2 hours over the last week. he has gone outside in the recliner chair with family. There is a gel cushion in recliner. Mental status has cleared, pt reports being depressed. New UTI, being treated with cefepime. Pt is still on Arjo bed on alternating air setting, new bed delivered today d/t repeating error code. Wounds look relatively unchanged from previous week, Bone palapable bilateral wounds, RIGHT side continues to have green/purulent drainage, provider Eliane Tolliver notified of persistent green drainage last . Vancomycin not ordered. Will notify provider of continued S/Sx of infection. treatment of Osteomylytis @ MD discretion. Edges slightly macerated. LEFT wound has increased undermining now from 6-12 oclock. Pt and staff reminded about keep HOB less than 30 degrees @ all times except for meals. Caregiver Nicki in room, educated on wound care during dressing change. As noted in last progress note we have been pursuing aggressive wound care here at [facility] since 02/21/21. Pt has had many setbacks health shin which has made the course of healing complicated. Wounds are chronic in nature, known osteomyelitis not currently on abx, ? reinitiate Vanco. ? punch biopsy to get appropriate culture. , probable biofilm present. As stated last week it appears we have reached the point where Pt needs more than the wound team at [facility] can give him to help heal Ischial wounds. Recommend wound care referral to wound care clinic that can help him with possible more advanced wound care, ie flaps, grafts, hyperbarics, removal of infected bone, etc.. Until this can happen and while Mr. Velasquez is a patient here wound team will continue to follow evidence based practice and basic wound care principles to keep his wound from deteriorating. Encourage Mr. Velasquez to eat protein will benefit him greatly. limit time in chair to 2 hrs and keep HOB less than 30 degrees. Recommend continuing current dressing treatments @ this time. - Wound left ischial tuberosity Wound Length: 2.1 cm (0.7 undermining 6-12) Wound Width: 1.1 cm Wound Depth: 0.8 cm Right Ischial Tuberositiy Wound Length: 1.9 cm (2.5 cm tunnel from 12-2) Wound Width: 2 cm Wound Depth: 2.1 cm
[2021-07-16] MEDS: Melatonin 3 MG TAB 9 MG PO (21:05)
[2021-07-16] MEDS: Acetaminophen 500 MG TAB 1000 MG PO (21:16)
[2021-07-16] MEDS: HYDROmorphone 2 MG TAB PO (21:16)
[2021-07-16] MEDS: Ibuprofen 600 MG TAB PO (21:16)
[2021-07-17 00:02] VITALS: BP 140/82; PULSE 72; RESP 18; TEMP 36.5; O2SAT 96
[2021-07-17] MEDS: CEFEPIME 2 GM in Normal Saline 100 ML IVPB ×3 (01:37→17:47)
[2021-07-17] MEDS: Normal Saline Flush 10 ML SYR IVP ×5 (01:37→21:23)
[2021-07-17] MEDS: Acetaminophen 500 MG TAB 1000 MG PO ×3 (03:01→21:24)
[2021-07-17] MEDS: HYDROmorphone 2 MG TAB PO ×2 (03:02→21:23)
[2021-07-17] MEDS: Ibuprofen 600 MG TAB PO ×3 (03:03→21:24)
[2021-07-17 06:15] VITALS: BP 138/62; PULSE 82; RESP 18; TEMP 37.4; O2SAT 90
[2021-07-17 07:09] LABS: HCT 34.2 % (40.0-50.0); HGB 10.9 g/dL (13.5-17.5); MCH 28.6 pg (27.0-33.0); MCHC 31.9 % (32.0-36.0); MCV 89.8 fL (80-95); MPV 10.2 fL (8.0-11.0); Platelet Count 184 10^3/uL (130-400); RBC 3.81 10^6/uL (4.36-5.78); RDW-SD 46.3 fL; WBC 5.35 10^3/uL (4.4-10.8)
[2021-07-17] MEDS: Protein Nutritional Supplement 16 GM 1 OUNCE PACKET PO ×2 (07:47→21:22)
[2021-07-17] MEDS: Polyethylene Glycol 3350 17 GM PACKET PO (07:47)
[2021-07-17] MEDS: Senna TAB 2 TAB PO ×2 (07:47→21:24)
[2021-07-17] MEDS: Docusate Sodium 100 MG CAP PO ×3 (07:48→21:24)
[2021-07-17] MEDS: Multivitamin w/Minerals TAB 1 TAB PO (07:48)
[2021-07-17] MEDS: Cholecalciferol (Vitamin D3) 1,000 UNIT TAB 1000 UNITS PO (07:48)
[2021-07-17] MEDS: Ascorbic Acid 500 MG TAB PO ×2 (07:48→21:24)
[2021-07-17] MEDS: Pantoprazole 40 MG TABCR PO (07:48)
[2021-07-17] MEDS: diazePAM 2 MG TAB PO ×3 (07:48→21:23)
[2021-07-17] MEDS: Magnesium Chloride 64 MG TABCR 128 MG PO ×2 (07:48→21:23)
[2021-07-17] MEDS: amLODIPine 10 MG TAB PO (07:48)
[2021-07-17 09:05] VITALS: BP 105/60; PULSE 77; RESP 16; TEMP 36.2; O2SAT 96
[2021-07-17] MEDS: Normal Saline 500 ML 100 ML IV (10:28)
--- NOTE | 2021-07-17 11:18 | NUR.NOTE ---
Nursing Note: At approximately 1030 on 07/17/21, this RN was in the pt.'s room to administer an IV antibiotic, and as the RN was hanging the medication, the pt. commented (in a sarcastic tone of voice), Must be nice to be able to just get up and walk out of the hospital every day. But I guess that's what happens when you have money. RN replied to the pt.'s comment, stating, I'm sorry you feel that way. I know it must be frustrating. But I don't think that's what the issue is. Pt. didn't say anything in reply, ignoring the RN, and continuing to watch a tv show on their tablet. Pt. has been ignoring the RN multiple times throughout the morning thus far when RN has entered the pt.'s room to perform pt. care and has attempted to make conversation with the pt. while performing these tasks. Pt. was annoyed and frustrated with RN when RN asked the pt. the head to toe assessment questions. RN informed the pt. that the RN must ask the pt. these assessment questions every shift and stated, I'm sorry that you're feeling frustrated by this, but it is my responsibility to ask you these questions. Pt. sighed deeply in response. RN will reassess as necessary.
[2021-07-17] MEDS: Collagenase 30 GM TUBE TP (13:42)
--- NOTE | 2021-07-17 14:17 | PCPN_ITS ---
Date of service: 07/17/21 Time of Service: 13:17 Assessment and Plan Assessment and plan (1) Chronic recurrent multifocal osteomyelitis: Status: Chronic (2) Quadriplegia: Status: Chronic (3) Neurogenic bladder: Status: Chronic (4) Palliative care encounter: Status: Acute Assessment and plan: I continue to follow all Favio for his multiple comorbidities and depression. He seems to be in a better mood today, although unfortunately more realistic. I am glad that he is pursuing Medicaid and also very happy that he feels that he has something to leave his children. He talked about a Dot lift and again going home. Its been 5 long months in the hospital. UTI?was treated Discouraged about [facility] and possible surgery to increase function Seems to be in a place where he can put his hallucinations in a closet rather than re- living them each time he talks about them I will continue to follow. I have spent more than 50% of time in counseling with this patient. Subjective Subjective Interval history since last seen: Favio is upset about his recent consults at [facility]. Nothing has been returned to [facility]. He was supposed to follow-up there in a couple of weeks which has now come and gone. He does not hold out much hope that anything will come of it. Staff has tried to call [facility] but they are not responding. He feels it might be too much of a problem to go down there since he will need repeat visits and he does not want to put his family through it He has decided to go on Medicaid. They have allowed him to keep his garage and land. He and his divorce lawyer are making a Will. He is upset because he is wounds have gotten bigger. He feels like he goes a little forward in the note lot backwards on a repeated basis. He is doing okay off of many of the meds that could affect his brain. He is depressed. He is not getting along with Nicki so well. Overall he is discouraged and seeing his future. Exam Narrative Exam Narrative: Favio is lying in bed. He is cooperative and does not seem as down as what he was after our last visit. He is working on his computer when I walk in the room. Conversation is engaged. Breathing is stable. Heart is regular. I did not examine his wounds but I did read the wound consult. Objective Last Vital Signs Temp 97.2 F L 07/17/21 09:05 Pulse 77 07/17/21 09:05 Resp 16 07/17/21 09:05 BP 105/60 07/17/21 09:05 Pulse Ox 96 07/17/21 09:05 Laboratory Results - last 24 hr 07/17/21 06:50 WBC 5.35 RBC 3.81 L Hgb 10.9 L Hct 34.2 L MCV 89.8 MCH 28.6 MCHC 31.9 L RDW 14.0 Plt Count 184 MPV 10.2 From [facility] Care: Wounds look relatively unchanged from previous week, Bone palapable bilateral wounds, RIGHT side continues to have green/purulent drainage, provider Eliane Tolliver notified of persistent green drainage last . Vancomycin not ordered. Will notify provider of continued S/Sx of infection. treatment of O césarlytis @ MD discretion. Edges slightly macerated. LEFT wound has increased undermining now from 6-12 oclock. Pt and staff reminded about keep HOB less than 30 degrees @ all times except for meals. Laboratory Tests 07/17/21 06:50 WBC 5.35 Hct 34.2 L Urine positive for proteus
[2021-07-17] MEDS: Enoxaparin 40 MG/0.4 ML SYR SC (17:47)
[2021-07-17 19:39] VITALS: BP 128/71; PULSE 85; RESP 18; TEMP 37.1; O2SAT 100
[2021-07-17] MEDS: Melatonin 3 MG TAB 9 MG PO (21:23)
[2021-07-18] MEDS: CEFEPIME 2 GM in Normal Saline 100 ML IVPB ×3 (02:32→19:04)
[2021-07-18] MEDS: Normal Saline Flush 10 ML SYR IVP ×3 (02:33→20:49)
[2021-07-18 03:49] VITALS: BP 107/62; PULSE 78; RESP 16; TEMP 36.6; O2SAT 100
[2021-07-18 08:21] VITALS: BP 140/80; PULSE 65; RESP 18; TEMP 36.5; O2SAT 96
--- NOTE | 2021-07-18 09:11 | CMPROGNOTE_ITS ---
- If Service Date Differs Date of service: 07/18/21 Time of Service: 09:11 Care Management Progress Note S/O: Favio remains on SB-1 awaiting LTM approval. He verbalizes being more depressed and is increasingly subdued in manner. He has informed CM that he feels alienated from the staff because of the negative behavior he exhibited a couple of weeks ago. His angry outburst have decreased although he is still irritable at times. Favio expresses frustration with the lack of progress obtaining medicaid, without which he cannot go home. Nicki is continuing to work on making her home handicapped accessible for Favio's eventual arrival. [employer] is also working with Nicki to create a list of equipment that will be needed. A:56 year old male admitted on 02/22/21 with constipation. He has had a complicated course which has included several SB-1 stays as well as acute admissions. P: The plan is still for Favio to be discharged to Nicki's home once caregivers can be arranged. This is unlikely to happen before senior care medicaid is approved as there is no other payer source. CM will continue to support Favio and his family and assess for discharge planning considerations.
[2021-07-18] MEDS: Polyethylene Glycol 3350 17 GM PACKET PO (09:13)
[2021-07-18] MEDS: Protein Nutritional Supplement 16 GM 1 OUNCE PACKET PO ×2 (09:13→20:50)
[2021-07-18] MEDS: Ascorbic Acid 500 MG TAB PO ×2 (09:14→20:51)
[2021-07-18] MEDS: Multivitamin w/Minerals TAB 1 TAB PO (09:14)
[2021-07-18] MEDS: Magnesium Chloride 64 MG TABCR 128 MG PO ×2 (09:14→20:51)
[2021-07-18] MEDS: Pantoprazole 40 MG TABCR PO (09:14)
[2021-07-18] MEDS: Cholecalciferol (Vitamin D3) 1,000 UNIT TAB 1000 UNITS PO (09:14)
[2021-07-18] MEDS: amLODIPine 10 MG TAB PO (09:14)
[2021-07-18] MEDS: Docusate Sodium 100 MG CAP PO ×3 (09:14→20:51)
[2021-07-18] MEDS: diazePAM 2 MG TAB PO ×3 (09:14→20:51)
[2021-07-18] MEDS: Senna TAB 2 TAB PO ×2 (09:14→20:51)
[2021-07-18 17:25] VITALS: BP 149/84; PULSE 85; RESP 16; TEMP 37.2; O2SAT 96
[2021-07-18] MEDS: Enoxaparin 40 MG/0.4 ML SYR SC (19:06)
[2021-07-18] MEDS: Collagenase 30 GM TUBE TP (20:52)
[2021-07-18] MEDS: Melatonin 3 MG TAB 9 MG PO (20:52)
[2021-07-18] MEDS: Acetaminophen 500 MG TAB 1000 MG PO (22:57)
[2021-07-18] MEDS: HYDROmorphone 2 MG TAB PO (22:57)
[2021-07-18] MEDS: Ibuprofen 600 MG TAB PO (22:57)
[2021-07-19] MEDS: CEFEPIME 2 GM in Normal Saline 100 ML IVPB ×3 (02:05→18:28)
[2021-07-19 07:57] VITALS: BP 132/70; PULSE 71; RESP 18; TEMP 37; O2SAT 97
[2021-07-19] MEDS: Magnesium Chloride 64 MG TABCR 128 MG PO ×2 (08:21→20:51)
[2021-07-19] MEDS: Protein Nutritional Supplement 16 GM 1 OUNCE PACKET PO ×2 (08:21→20:49)
[2021-07-19] MEDS: Polyethylene Glycol 3350 17 GM PACKET PO (08:21)
[2021-07-19] MEDS: Senna TAB 2 TAB PO ×2 (08:22→20:50)
[2021-07-19] MEDS: amLODIPine 10 MG TAB PO (08:22)
[2021-07-19] MEDS: diazePAM 2 MG TAB PO ×3 (08:22→20:50)
[2021-07-19] MEDS: Multivitamin w/Minerals TAB 1 TAB PO (08:22)
[2021-07-19] MEDS: Ascorbic Acid 500 MG TAB PO ×2 (08:22→20:50)
[2021-07-19] MEDS: Cholecalciferol (Vitamin D3) 1,000 UNIT TAB 1000 UNITS PO (08:22)
[2021-07-19] MEDS: Pantoprazole 40 MG TABCR PO (08:22)
[2021-07-19] MEDS: Docusate Sodium 100 MG CAP PO ×3 (08:23→20:50)
[2021-07-19] MEDS: Normal Saline Flush 10 ML SYR IVP ×2 (10:20→20:53)
[2021-07-19] MEDS: Enoxaparin 40 MG/0.4 ML SYR SC (18:29)
[2021-07-19] MEDS: Collagenase 30 GM TUBE TP (20:49)
[2021-07-19] MEDS: Acetaminophen 500 MG TAB 1000 MG PO (20:51)
[2021-07-19] MEDS: Melatonin 3 MG TAB 9 MG PO (20:51)
[2021-07-19] MEDS: Ibuprofen 600 MG TAB PO (20:51)
[2021-07-19] MEDS: HYDROmorphone 2 MG TAB PO (20:52)
[2021-07-19 23:33] VITALS: BP 108/70; PULSE 70; RESP 18; TEMP 36.4; O2SAT 98
[2021-07-20 07:40] VITALS: BP 145/85; PULSE 66; RESP 20; TEMP 36.6; O2SAT 98
[2021-07-20] MEDS: Protein Nutritional Supplement 16 GM 1 OUNCE PACKET PO ×2 (09:05→21:11)
[2021-07-20] MEDS: Senna TAB 2 TAB PO ×2 (09:05→21:14)
[2021-07-20] MEDS: Docusate Sodium 100 MG CAP PO ×3 (09:05→21:12)
[2021-07-20] MEDS: Magnesium Chloride 64 MG TABCR 128 MG PO ×2 (09:05→21:14)
[2021-07-20] MEDS: Ascorbic Acid 500 MG TAB PO ×2 (09:05→21:13)
[2021-07-20] MEDS: Polyethylene Glycol 3350 17 GM PACKET PO (09:05)
[2021-07-20] MEDS: diazePAM 2 MG TAB PO ×3 (09:06→21:14)
[2021-07-20] MEDS: Pantoprazole 40 MG TABCR PO (09:06)
[2021-07-20] MEDS: amLODIPine 10 MG TAB PO (09:06)
[2021-07-20] MEDS: Multivitamin w/Minerals TAB 1 TAB PO (09:06)
[2021-07-20] MEDS: Cholecalciferol (Vitamin D3) 1,000 UNIT TAB 1000 UNITS PO (09:06)
[2021-07-20] MEDS: Collagenase 30 GM TUBE TP (09:07)
[2021-07-20] MEDS: HYDROmorphone 2 MG TAB PO ×2 (14:32→21:13)
--- NOTE | 2021-07-20 14:55 | W.PM.PROGNOT ---
Date of Service Date of service: 07/20/21 Time of Service: 14:55 Assessment and Plan Assessment and plan (1) Chronic recurrent multifocal osteomyelitis: Status: Chronic Assessment and plan: continued current wound care; I will need to discuss w/ his wound care nurses if they feel that his care can be transferred to outpatient care w/ home health wound care nurse. He also will need equipment to manage his quadriplegia and off load pressure from his ulcers; i.e. special wound care bed w/ air mattresses, wheel chair and any other equipment needed to manage his wounds at home. He apparently plans to live w/ the mother of his children (2) Quadriplegia: Status: Chronic Assessment and plan: Patient states that he saw a Dr. Hudson Miller, neurosurgeon at [facility]. I will have to find out what they discussed and their plans for follow up. Favio speaks about them discussing surgery to alleviate his muscle spasms in his arms (3) Neurogenic bladder: Status: Chronic Assessment and plan: continue monthly suprapubic catheter changes. Last change was done when he had his acute UTI on 07/12. Urine has improved and he is off antibiotics (he was treated for Proteus mirabilis UTI but had negative blood cultures). He was given Fosfomycin on the evening of 07/12 and started on Cefepime and Daptomycin but these were stopped on 07/13 when his blood culture came back negative and his urine culture grew Proteus. (4) DVT prophylaxis: Status: Acute Assessment and plan: currently on enoxaparin 40 mg SC daily (5) Discharge planning issues: Status: Acute Assessment and plan: I will discuss w/ the hospitalist team (nursing, CM, wound care nurses) the plans for discharge and what steps are needed in terms of obtaining equipment and arranging follow up w/ home health wound care nurse and outpatient follow up w/ [facility] and local specialists i.e. urology, surgery, etc. Subjective Subjective Interval history since last seen: Patient has no new complaints or concerns other than wondering when he will be discharged. I discussed w/ him discharge planning. I need to confer w/ wound care nurses the plans for home health to take over his wound care, find out what plans [facility] has regarding his quadriparesis and discuss w/ case management regarding obtaining home health equipment, i.e. pressure relieving bed, wheel chair etc. However at this point, he has no active infection for which he is requiring iv antibiotics. He has chronic osteomyelitis of his sacrum on both sides however this is going to be a chronic issue and does not necessitate continued inpatient care as long as his wounds are healing over. Exam Narrative Exam Narrative: Alert/oriented x 3, he is sitting up watching a movie on his computer Lungs: clear Heart: RRR Abdomen: soft, nontender, nondistended, normal bowel sounds Suprapubic catheter: draining clear yellow urine Sacral wounds were not examined today as his nurse had already changed the dressings. Per Jorge his sacral wound sizes were as follows: Right: 1.5 cm length x 1.5 cm width x 1.9 cm deep w/ tunneling of 2.1 cm from 10 to 2 o'clock Left: 2 cm x 1.5 cm x 0.9 cm w/ undermining of 0.7 cm from 6 to 12 o'clock Objective Last Vital Signs Temp 36.6 C 07/20/21 07:40 Pulse 66 07/20/21 07:40 Resp 20 07/20/21 07:40 BP 145/85 H 07/20/21 07:40 Pulse Ox 98 07/20/21 07:40
[2021-07-20 15:59] VITALS: BP 135/79; PULSE 73; RESP 16; TEMP 37.1; O2SAT 97
[2021-07-20] MEDS: Enoxaparin 40 MG/0.4 ML SYR SC (18:21)
[2021-07-20] MEDS: Normal Saline Flush 10 ML SYR IVP (21:11)
[2021-07-20] MEDS: Melatonin 3 MG TAB 9 MG PO (21:12)
[2021-07-20] MEDS: Acetaminophen 500 MG TAB 1000 MG PO (21:13)
[2021-07-20] MEDS: Ibuprofen 600 MG TAB PO (21:13)
[2021-07-20 23:19] VITALS: BP 132/76; PULSE 71; RESP 16; TEMP 36.6; O2SAT 97
[2021-07-21 07:24] VITALS: BP 142/72; PULSE 74; RESP 16; TEMP 35.9; O2SAT 100
[2021-07-21] MEDS: Polyethylene Glycol 3350 17 GM PACKET PO (09:01)
[2021-07-21] MEDS: Protein Nutritional Supplement 16 GM 1 OUNCE PACKET PO ×2 (09:01→20:20)
[2021-07-21] MEDS: Pantoprazole 40 MG TABCR PO (09:02)
[2021-07-21] MEDS: Magnesium Chloride 64 MG TABCR 128 MG PO ×2 (09:02→20:17)
[2021-07-21] MEDS: Cholecalciferol (Vitamin D3) 1,000 UNIT TAB 1000 UNITS PO (09:02)
[2021-07-21] MEDS: Collagenase 30 GM TUBE TP (09:02)
[2021-07-21] MEDS: amLODIPine 10 MG TAB PO (09:02)
[2021-07-21] MEDS: Senna TAB 2 TAB PO ×2 (09:02→20:17)
[2021-07-21] MEDS: Multivitamin w/Minerals TAB 1 TAB PO (09:02)
[2021-07-21] MEDS: Ascorbic Acid 500 MG TAB PO ×2 (09:04→20:18)
[2021-07-21] MEDS: diazePAM 2 MG TAB PO ×3 (09:04→20:18)
[2021-07-21] MEDS: Docusate Sodium 100 MG CAP PO ×3 (09:04→20:18)
[2021-07-21] MEDS: Enoxaparin 40 MG/0.4 ML SYR SC (18:06)
[2021-07-21] MEDS: Melatonin 3 MG TAB 9 MG PO (20:17)
[2021-07-21] MEDS: Ibuprofen 600 MG TAB PO (20:31)
[2021-07-21] MEDS: HYDROmorphone 2 MG TAB PO (20:31)
[2021-07-21] MEDS: Acetaminophen 500 MG TAB 1000 MG PO (20:32)
[2021-07-21 22:39] VITALS: BP 97/62; PULSE 72; RESP 17; TEMP 36.1; O2SAT 98
[2021-07-22 08:40] VITALS: BP 132/67; PULSE 71; RESP 16; TEMP 35.9; O2SAT 96
--- NOTE | 2021-07-22 09:07 | W.PALPGNOTE ---
Date of service: 07/22/21 Time of Service: 06:07 Assessment and Plan Assessment and plan (1) Chronic recurrent multifocal osteomyelitis: Status: Chronic (2) Major depressive disorder: Status: Chronic Qualifiers: Major depression recurrence: single episode Active/Remission status: currently active Major depression episode severity: moderate Qualified Code(s): F32.1 - Major depressive disorder, single episode, moderate (3) Quadriplegia: Status: Chronic (4) Palliative care encounter: Status: Acute Assessment and plan: Favio and I talked for some time. I explained to him that once his insurance is in order it will still take a considerable amount of time for him to be able to move from the hospital setting into home setting. He was upset and irritated by this. Prior to seeing Favio vinson I did not discuss with hospitalist where he was at at being able to leave [facility]. Since then I did speak with care management and the big problem is making sure that he has insurance in place to pay for wherever he does go. Wounds have presently stalled but do not appear to be getting worse His mood is considerably clear and better than what it had been 3 weeks ago. It would be nice to be able to help him with his sleep but at the same time I remember how encephalopathic he was 3 weeks ago and do not want him to return to that state We will continue to visit with Favio and help him with understanding his present condition and options Subjective Subjective Patient reports: still having pain and tolerating a regular diet Interval history since last seen: Favio is sitting up working on his computer. He is excited and anxious as he understood that they would work on getting him home soon. He will be going home with the mother of his child. Many things have to get in place including insurance setting up the house to accommodate a quadriplegic person etc. He was hoping that this could all be done by the weeks and. He is off many of his psych meds and feels that the thing he misses the most is sleep. He has been unable to sleep well since they took away his different medications for that. He understands how bad his mental state was but at the same time really would like to sleep. He still is having cramps in his left shoulder. His hope is that the cramping is evidence that his left shoulder is waking up. Something similar to this happened with his right shoulder and arm prior to having much more use from it. He is presently working on his well In reading about his wounds, they have pretty much stalled. He does have osteomyelitis of the sacrum. He does feel anxious to move on from the hospital setting. Exam Narrative Exam Narrative: Favio is clear of mind. He is polite and cooperative. His heart is regular. His lungs decent air movement. He is able to use his pointers etc. to work his computer. He can shrug his left shoulder but today did not have use of his left hand. His mood was quiet and contemplative Objective Last Vital Signs Temp 96.6 F L 07/22/21 08:40 Pulse 71 07/22/21 08:40 Resp 16 07/22/21 08:40 BP 132/67 07/22/21 08:40 Pulse Ox 96 07/22/21 08:40
[2021-07-22] MEDS: Polyethylene Glycol 3350 17 GM PACKET PO (09:18)
[2021-07-22] MEDS: Protein Nutritional Supplement 16 GM 1 OUNCE PACKET PO ×2 (09:18→22:28)
[2021-07-22] MEDS: amLODIPine 10 MG TAB PO (09:18)
[2021-07-22] MEDS: Docusate Sodium 100 MG CAP PO ×3 (09:19→22:28)
[2021-07-22] MEDS: diazePAM 2 MG TAB PO ×3 (09:19→22:28)
[2021-07-22] MEDS: Senna TAB 2 TAB PO ×2 (09:19→22:28)
[2021-07-22] MEDS: Collagenase 30 GM TUBE TP (09:19)
[2021-07-22] MEDS: Magnesium Chloride 64 MG TABCR 128 MG PO ×2 (09:20→22:28)
[2021-07-22] MEDS: Pantoprazole 40 MG TABCR PO (09:20)
[2021-07-22] MEDS: Ascorbic Acid 500 MG TAB PO ×2 (09:20→22:27)
[2021-07-22] MEDS: Cholecalciferol (Vitamin D3) 1,000 UNIT TAB 1000 UNITS PO (09:20)
[2021-07-22] MEDS: Multivitamin w/Minerals TAB 1 TAB PO (09:20)
[2021-07-22] MEDS: Enoxaparin 40 MG/0.4 ML SYR SC (18:24)
[2021-07-22 22:26] VITALS: BP 132/69; PULSE 77; RESP 20; TEMP 37.9; O2SAT 95
[2021-07-22] MEDS: Melatonin 3 MG TAB 9 MG PO (22:27)
[2021-07-22 22:31] VITALS: TEMP 37.9
[2021-07-22] MEDS: Acetaminophen 500 MG TAB 1000 MG PO (22:31)
[2021-07-22] MEDS: Ibuprofen 600 MG TAB PO (22:35)
[2021-07-22] MEDS: HYDROmorphone 2 MG TAB PO (22:35)
[2021-07-23 07:43] VITALS: BP 136/82; PULSE 67; RESP 18; TEMP 36.6; O2SAT 99
[2021-07-23] MEDS: Senna TAB 2 TAB PO ×2 (09:44→21:31)
[2021-07-23] MEDS: Protein Nutritional Supplement 16 GM 1 OUNCE PACKET PO ×2 (09:44→21:32)
[2021-07-23] MEDS: Multivitamin w/Minerals TAB 1 TAB PO (09:44)
[2021-07-23] MEDS: amLODIPine 10 MG TAB PO (09:44)
[2021-07-23] MEDS: Polyethylene Glycol 3350 17 GM PACKET PO (09:44)
[2021-07-23] MEDS: Pantoprazole 40 MG TABCR PO (09:45)
[2021-07-23] MEDS: Magnesium Chloride 64 MG TABCR 128 MG PO ×2 (09:45→21:31)
[2021-07-23] MEDS: diazePAM 2 MG TAB PO ×3 (09:45→21:31)
[2021-07-23] MEDS: Cholecalciferol (Vitamin D3) 1,000 UNIT TAB 1000 UNITS PO (09:45)
[2021-07-23] MEDS: Docusate Sodium 100 MG CAP PO ×3 (09:45→21:32)
[2021-07-23] MEDS: Ascorbic Acid 500 MG TAB PO ×2 (09:45→21:32)
[2021-07-23] MEDS: Collagenase 30 GM TUBE TP (09:46)
[2021-07-23] MEDS: Ibuprofen 600 MG TAB PO ×2 (12:12→21:32)
[2021-07-23] MEDS: Acetaminophen 500 MG TAB 1000 MG PO ×2 (12:12→21:32)
[2021-07-23] MEDS: HYDROmorphone 2 MG TAB PO ×2 (12:13→21:31)
[2021-07-23] MEDS: Enoxaparin 40 MG/0.4 ML SYR SC (18:39)
--- NOTE | 2021-07-23 18:57 | WOUNDCONS ---
- If Service Date Differs Date of service: 07/23/21 Time of Service: 18:57 Wound Initial Evaluation Narrative: weekly reevaluation done for Mr. Velasquez today. verbal consent given for photography. Foot wound dressed this morning, not taken down for photography @ this time, being managed by podiatry. See photos below for measurements and wound appearance. Abdominal wound still present, looks mostly unchanged. Unclear why limited epithilization occuring. Probable biofilm. cleansed and dressed as ordered. Continue to monitor. Favio reports sitting up in recliner chair only 1 time over the last week. . Pt is still on Arjo bed on alternating air setting on. Rounded each shift Wounds look relatively unchanged from previous week, slightly larger. Bone palapable bilateral wounds, RIGHT and LEFT side continues to have green/purulent drainage. Notifed Wendy Toney today of continued S/Sx of infection. treatment of Osteomylytis @ MD discretion. Edges slightly macerated. Pt and staff reminded about keep HOB less than 30 degrees @ all times except for meals. Caregiver Nicki in room, educated on wound care during dressing change again this week. As noted in last progress note we have been pursuing aggressive wound care here at [facility] since 02/21/21. Pt has had many setbacks health shin which has made the course of healing complicated. Wounds are chronic in nature, known osteomyelitis not currently on abx, ? re-initiate Vanco. ? punch biopsy to get appropriate culture. , probable biofilm present. As stated last week it appears we have reached the point where Pt needs more than the wound team at [facility] can give him to help heal Ischial wounds. Recommend wound care referral to wound care clinic (? [facility]) that can help him with possible more advanced wound care, ie plastics to help with flaps, grafts, hyperbarics, removal of infected bone, etc.. Until this can happen and while Mr. Velasquez is a patient here wound team will continue to follow evidence based practice and basic wound care principles to keep his wound from deteriorating further. Patient and his caregiver Nicki aware of this recommendation. Outpatient wound care after discharge @ a wound clinic recommended. Encouraged Mr. Velasquez to eat protein will benefit him greatly. limit time in chair to 2 hrs and keep HOB less than 30 degrees. Recommend continuing current dressing treatments @ this time.
[2021-07-23 20:45] VITALS: BP 134/82; PULSE 76; RESP 17; TEMP 36.7; O2SAT 99
[2021-07-23] MEDS: Melatonin 3 MG TAB 9 MG PO (21:32)
[2021-07-24 00:01] VITALS: BP 110/74; PULSE 65; RESP 19; TEMP 36.5; O2SAT 96
[2021-07-24] MEDS: diazePAM 2 MG TAB PO ×3 (08:55→21:04)
[2021-07-24] MEDS: Polyethylene Glycol 3350 17 GM PACKET PO (08:55)
[2021-07-24] MEDS: Senna TAB 2 TAB PO ×2 (08:55→21:04)
[2021-07-24] MEDS: Protein Nutritional Supplement 16 GM 1 OUNCE PACKET PO ×2 (08:55→21:03)
[2021-07-24] MEDS: Pantoprazole 40 MG TABCR PO (08:55)
[2021-07-24] MEDS: amLODIPine 10 MG TAB PO (08:55)
[2021-07-24] MEDS: Multivitamin w/Minerals TAB 1 TAB PO (08:55)
[2021-07-24] MEDS: Ascorbic Acid 500 MG TAB PO ×2 (08:56→21:04)
[2021-07-24] MEDS: Docusate Sodium 100 MG CAP PO ×3 (08:56→21:05)
[2021-07-24] MEDS: Magnesium Chloride 64 MG TABCR 128 MG PO ×2 (08:56→21:04)
[2021-07-24] MEDS: Cholecalciferol (Vitamin D3) 1,000 UNIT TAB 1000 UNITS PO (08:56)
[2021-07-24 09:18] VITALS: BP 153/67; PULSE 74; RESP 16; TEMP 36.7; O2SAT 97
[2021-07-24 10:32] LABS: Abs Immature Grans 0.07 10^3/uL (0.0-0.06); Absolute Basophil Count 0.02 10^3/uL (0.0-0.2); Absolute Eosinophil Count 0.34 10^3/uL (0.0-0.7); Absolute Lymphocyte Count 1.19 10^3/uL (1.2-3.4); Absolute Monocyte Count 0.42 10^3/uL (0.1-0.8); Absolute Neutrophil Count 3.75 10^3/uL (1.2-6.7); Basophils % 0.3; Eosinophils % 5.9; HCT 37.1 % (40.0-50.0); HGB 11.9 g/dL (13.5-17.5); Immature Grans % 1.2; Lymphocytes % 20.6; MCH 29.2 pg (27.0-33.0); MCHC 32.1 % (32.0-36.0); MCV 91.2 fL (80-95); MPV 10.2 fL (8.0-11.0); Monocytes % 7.3; Neutrophils % 64.7; Nucleated RBC 0 %; Platelet Count 184 10^3/uL (130-400); RBC 4.07 10^6/uL (4.36-5.78); RDW-SD 47.3 fL; WBC 5.79 10^3/uL (4.4-10.8)
[2021-07-24 10:44] LABS: Anion Gap 10.6 mmol/L (3-11); BUN 41 mg/dL (7-18); C-Reactive Protein 0.79 mg/dL (0.0-0.3); CO2 23.4 mmol/L (21.0-32.0); CREATININE 0.8 mg/dL (0.70-1.30); Calcium 9.8 mg/dL (8.5-10.1); Chloride 106 mmol/L (98-107); Glucose 133 mg/dL (74-106); Potassium 3.9 mmol/L (3.5-5.1); Sodium 140 mmol/L (136-145)
[2021-07-24] MEDS: CEFEPIME 2 GM in Normal Saline 100 ML IVPB ×2 (10:59→17:37)
[2021-07-24] MEDS: Normal Saline 500 ML 100 ML IV (10:59)
[2021-07-24] MEDS: Normal Saline Flush 10 ML SYR IVP ×4 (11:02→21:03)
[2021-07-24] MEDS: Ibuprofen 600 MG TAB PO ×2 (12:09→21:05)
[2021-07-24] MEDS: Acetaminophen 500 MG TAB 1000 MG PO ×2 (12:10→21:04)
[2021-07-24] MEDS: Collagenase 30 GM TUBE TP (15:23)
[2021-07-24 15:52] VITALS: BP 115/70; PULSE 72; RESP 16; TEMP 36.7; O2SAT 98
[2021-07-24] MEDS: Enoxaparin 40 MG/0.4 ML SYR SC (17:38)
[2021-07-24] MEDS: HYDROmorphone 2 MG TAB PO (21:04)
[2021-07-24] MEDS: Melatonin 3 MG TAB 9 MG PO (21:04)
[2021-07-24 23:02] VITALS: BP 129/80; PULSE 66; RESP 15; TEMP 37.3; O2SAT 97
[2021-07-25] MEDS: CEFEPIME 2 GM in Normal Saline 100 ML IVPB ×3 (02:31→17:32)
[2021-07-25] MEDS: Normal Saline Flush 10 ML SYR IVP ×3 (02:31→17:31)
[2021-07-25] MEDS: amLODIPine 10 MG TAB PO (08:13)
[2021-07-25] MEDS: diazePAM 2 MG TAB PO ×3 (08:13→20:59)
[2021-07-25] MEDS: Multivitamin w/Minerals TAB 1 TAB PO (08:13)
[2021-07-25] MEDS: Protein Nutritional Supplement 16 GM 1 OUNCE PACKET PO ×2 (08:13→20:59)
[2021-07-25] MEDS: Polyethylene Glycol 3350 17 GM PACKET PO (08:13)
[2021-07-25] MEDS: Senna TAB 2 TAB PO ×2 (08:13→21:00)
[2021-07-25] MEDS: Docusate Sodium 100 MG CAP PO ×3 (08:13→21:00)
[2021-07-25] MEDS: Pantoprazole 40 MG TABCR PO (08:13)
[2021-07-25] MEDS: Cholecalciferol (Vitamin D3) 1,000 UNIT TAB 1000 UNITS PO (08:13)
[2021-07-25] MEDS: Ascorbic Acid 500 MG TAB PO ×2 (08:14→21:00)
[2021-07-25] MEDS: Magnesium Chloride 64 MG TABCR 128 MG PO ×2 (08:14→20:59)
[2021-07-25 08:22] VITALS: BP 115/67; PULSE 67; RESP 18; TEMP 35.8; O2SAT 98
[2021-07-25] MEDS: Collagenase 30 GM TUBE TP (13:01)
[2021-07-25 15:30] VITALS: BP 123/74; PULSE 79; RESP 18; TEMP 36.9; O2SAT 96
[2021-07-25] MEDS: Enoxaparin 40 MG/0.4 ML SYR SC (17:31)
[2021-07-25] MEDS: Normal Saline 500 ML 100 ML IV (17:33)
[2021-07-25 19:22] VITALS: BP 120/75; PULSE 79; RESP 18; TEMP 37.7; O2SAT 92
[2021-07-25] MEDS: HYDROmorphone 2 MG TAB PO (20:58)
[2021-07-25 20:59] VITALS: TEMP 37.7
[2021-07-25] MEDS: Acetaminophen 500 MG TAB 1000 MG PO (20:59)
[2021-07-25] MEDS: Ibuprofen 600 MG TAB PO (20:59)
[2021-07-25] MEDS: Melatonin 3 MG TAB 9 MG PO (21:00)
--- NOTE | 2021-07-25 22:00 | PDOC.CMPRO ---
- If Service Date Differs Date of service: 07/25/21 Time of Service: 22:01 Care Management Progress Note S/O: Favio remains on SB-1 awaiting LTM approval. Yesterday Favio informed CM that he intends to discharge home on Thursday07/30/21. He shared that he is tired of being hospitalized and believes that he and Nicki can manage just fine. Nicki came to visit last evening and confirmed the plan. CM ordered a hospital bed today through [facility] as well as a Dot lift. It will be submitted to Favio's insurance company ([facility]) for approval. Favio's senior care Medicaid still has not been approved and no additional caregivers have been hired. Favio and Nicki verbalized that they have friends and family that will help to support them. Favio contacted the company that made his special wheelchair and it can be delivered next week as well. Nicki shared that her house is now handicapped accessible. CM continues to advise that there should be 24/ caregivers available to provide care for Favio. He is a large man and moving and turning him and getting him out of bed safely will be a challenge. A:56 year old male admitted on 02/22/21 with constipation. He has had a complicated course which has included several SB-1 stays as well as acute admissions. P: Favio's plan is now to be discharged to Nicki's home next week even though caregivers have not been arranged. Equipment has been ordered and is awaiting prior authorization by his insurance company. Favio and Nicki have been advised that it is still recommended that caregivers be available to hel with Favio's care. CM will continue to support Favio and his family and assess for discharge planning considerations.
[2021-07-26 01:23] VITALS: BP 127/71; PULSE 61; RESP 18; TEMP 36.8; O2SAT 98
[2021-07-26] MEDS: CEFEPIME 2 GM in Normal Saline 100 ML IVPB ×3 (01:38→18:59)
[2021-07-26] MEDS: Normal Saline Flush 10 ML SYR IVP (08:43)
[2021-07-26] MEDS: Polyethylene Glycol 3350 17 GM PACKET PO (08:43)
[2021-07-26] MEDS: Protein Nutritional Supplement 16 GM 1 OUNCE PACKET PO ×2 (08:43→19:59)
[2021-07-26] MEDS: amLODIPine 10 MG TAB PO (08:44)
[2021-07-26] MEDS: Senna TAB 2 TAB PO ×2 (08:44→20:00)
[2021-07-26] MEDS: Collagenase 30 GM TUBE TP (08:45)
[2021-07-26] MEDS: diazePAM 2 MG TAB PO ×3 (08:45→19:59)
[2021-07-26] MEDS: Magnesium Chloride 64 MG TABCR 128 MG PO ×2 (08:45→19:59)
[2021-07-26] MEDS: Ascorbic Acid 500 MG TAB PO ×2 (08:45→20:00)
[2021-07-26] MEDS: Pantoprazole 40 MG TABCR PO (08:46)
[2021-07-26] MEDS: Cholecalciferol (Vitamin D3) 1,000 UNIT TAB 1000 UNITS PO (08:46)
[2021-07-26] MEDS: Docusate Sodium 100 MG CAP PO ×3 (08:46→19:59)
[2021-07-26] MEDS: Multivitamin w/Minerals TAB 1 TAB PO (08:47)
[2021-07-26 09:03] VITALS: BP 116/74; PULSE 76; RESP 16; TEMP 37; O2SAT 96
--- NOTE | 2021-07-26 12:17 | PGE_ITS ---
Date of Service Date of service: 07/26/21 Time of Service: 12:18 Subjective Subjective Interval history since last seen: Follow-up chronic wound lateral aspect right foot at the fifth MPJ level and paronychia left hallux. Exam Narrative Exam Narrative: Mr. Velasquez has grossly elongated and hypertrophic appearing toenails consistent with onychomycosis which are causing irritation around the periungual regions of multiple toes. The medial groove of the left hallux shows a paronychia without cellulitis. Yellow creamy pus is noted coming from the proximal medial nail fold. He has a chronic wound overlying the right fifth metatarsal head laterally has a dense blackish eschar without active signs of infection. I estimate the wound a t 1.4 x 1 cm depth is indeterminate at this time. The remaining exam is otherwise unchanged from my previous visits Impressions: pyogenic paronychia medial groove left hallux Onychauxis likely onychomycosis Plan: Bruce is insensate in his feet and so no anesthetics were required for the incision and drainage procedure to remove the ingrown medial left hallux nail. This was done uneventfully utilizing double-action bone cutting forceps. I resected the medial portion of the left hallux nail at its point of curvature and avulsed the medial portion of the nail plate free of the nailbed. A small quantity of pus was further removed from within the soft tissue along the nail fold but there was no tracking to bone and did not track more proximally. This wound was dressed with triple antibiotic ointment and a gauze dressing. I will have nursing do the same for several days until healed. Debrided all remaining nails atraumatically to patient tolerance. Continue pressure abatement measures to the right fifth metatarsal head region and local wound care consisting of collagenase Santyl ointment under saline wet-to-dry dressing daily. Sharp debridement may be necessary if he fails to thrive. I will follow periodically. Objective Last Vital Signs Temp 37.0 C 07/26/21 09:03 Pulse 76 07/26/21 09:03 Resp 16 07/26/21 09:03 BP 116/74 07/26/21 09:03 Pulse Ox 96 07/26/21 09:03
--- NOTE | 2021-07-26 15:29 | PGE_ITS ---
Date of Service Date of service: 07/26/21 Time of Service: 15:29 Subjective Subjective Interval history since last seen: Due to reported purulent drainage from wounds on B buttocks by wound care, the patient was initiated on cefepime with wound cultures pending on 07/24/21. Patient's mood has been a concern brought up by nursing. Discussed case with the patient's outpatient psychiatrist, Dr Maya, who recommended resumption of braydon tazapine 7.5-15 mg HS. Objective Last Vital Signs Temp 37.0 C 07/26/21 09:03 Pulse 76 07/26/21 09:03 Resp 16 07/26/21 09:03 BP 116/74 07/26/21 09:03 Pulse Ox 96 07/26/21 09:03
[2021-07-26 15:50] VITALS: BP 130/72; PULSE 70; RESP 18; TEMP 36.8; O2SAT 96
[2021-07-26] MEDS: Enoxaparin 40 MG/0.4 ML SYR SC (18:59)
[2021-07-26] MEDS: Melatonin 3 MG TAB 9 MG PO (20:00)
[2021-07-26] MEDS: HYDROmorphone 2 MG TAB PO (20:00)
[2021-07-26] MEDS: Mirtazapine 15 MG TAB 7.5 MG PO (22:31)
[2021-07-26 23:48] VITALS: BP 118/76; PULSE 60; RESP 15; TEMP 36.3; O2SAT 95
--- NOTE | 2021-07-27 01:33 | NUR.NOTE ---
Nursing Note: Pt pleasant and cooperative with this nurse. Pt questioned how medications are disbursed to Pt on discharge. Pt stated that I am leaving Thursday, no matter what. This nurse encouraged Pt to continue to work with case management on discharge. Pt stated to this nurse that there is a planned meeting on 07/27 with wound care and case management. this nurse encouraged Pt to discuss all concerns with nursing team so that he can continue to receive services that will allow Pt to heal.
[2021-07-27] MEDS: CEFEPIME 2 GM in Normal Saline 100 ML IVPB ×3 (01:48→18:43)
[2021-07-27 06:40] VITALS: BP 133/77; PULSE 59; RESP 16; TEMP 36.1; O2SAT 99
[2021-07-27] MEDS: amLODIPine 10 MG TAB PO (08:40)
[2021-07-27] MEDS: Pantoprazole 40 MG TABCR PO (08:40)
[2021-07-27] MEDS: Senna TAB 2 TAB PO ×2 (08:41→21:06)
[2021-07-27] MEDS: Docusate Sodium 100 MG CAP PO ×3 (08:41→21:07)
[2021-07-27] MEDS: Multivitamin w/Minerals TAB 1 TAB PO (08:41)
[2021-07-27] MEDS: Ascorbic Acid 500 MG TAB PO ×2 (08:41→21:06)
[2021-07-27] MEDS: diazePAM 2 MG TAB PO ×3 (08:41→21:07)
[2021-07-27] MEDS: Polyethylene Glycol 3350 17 GM PACKET PO (08:41)
[2021-07-27] MEDS: Protein Nutritional Supplement 16 GM 1 OUNCE PACKET PO ×2 (08:42→21:06)
[2021-07-27] MEDS: Magnesium Chloride 64 MG TABCR 128 MG PO ×2 (08:42→21:07)
[2021-07-27] MEDS: Collagenase 30 GM TUBE TP (08:45)
[2021-07-27] MEDS: Cholecalciferol (Vitamin D3) 1,000 UNIT TAB 1000 UNITS PO (08:45)
[2021-07-27] MEDS: Normal Saline Flush 10 ML SYR IVP (11:10)
[2021-07-27] MEDS: Normal Saline 500 ML 30 ML IV (11:12)
--- NOTE | 2021-07-27 16:22 | PGE_ITS ---
Date of Service Date of service: 07/27/21 Time of Service: 16:22 Assessment and Plan Assessment and plan (1) Chronic recurrent multifocal osteomyelitis: Status: Chronic Assessment and plan: continued current wound care; Care management working on his care being transferred to outpatient w/ home health wound care nurse. He also will need equipment to manage his quadriplegia and off load pressure from his ulcers; i.e. special wound care bed w/ air mattresses, wheel chair and any other equipment needed to manage his wounds at home. He apparently plans to live w/ the mother of his children (2) Major depressive disorder: Status: Chronic Assessment and plan: He appears in better spirits, though he has an expectation of going home, though at this time is would not be safe due to lack of resources and equipment, better planning needs to be in place prior to discha rge. CM involved agreeable. Qualifiers: Active/Remission status: currently active Major depression episode severity: moderate Major depression recurrence: single episode Qualified Code(s): F32.1 - Major depressive disorder, single episode, moderate (3) Quadriplegia: Status: Chronic Assessment and plan: Patient states that he saw a Dr. Hudsno Miller, neurosurgeon at [facility]. Evaluated for surgery to alleviate his muscle spasms in his arms. He states that the odds of improvement were appx 80%. He is concerned about the possibility of losing the little function he currently has and is hesitant in pursuing the surgery. (4) Palliative care encounter: Status: Acute Assessment and plan: Favio and I talked for some time. I explained to him that once his insurance is in order it will still take a considerable amount of time for him to be able to move from the hospital setting into home setting. He was upset and irritated by this. Prior to seeing Favio vinson I did not discuss with hospitalist where he was at at being able to leave [facility]. Since then I did speak with care management and the big problem is making sure that he has insurance in place to pay for wherever he does go. Wounds have presently stalled but do not appear to be getting worse His mood is considerably clear and better than what it had been 3 weeks ago. It would be nice to be able to help him with his sleep but at the same time I remember how encephalopathic he was 3 weeks ago and do not want him to return to that state We will continue to visit with Favio and help him with understanding his present condition and options Exam Narrative Exam Narrative: Able to go outside with family. Const General: cooperative, comfortable and no acute distress Orientation: alert, awake and oriented x3 Eyes Eyelids: eyelids normal Pupils: PERRL EOM: EOM intact bilaterally Neck Neck: normal visual inspection and no JVD Lymphatic: no lymphadenopathy noted Resp Effort & Inspection: normal respiratory effort Auscultation: clear to auscultation bilaterally Cardio Jugular venous pressure: no JVD Rhythm: regular rhythm Heart Sounds: S1 normal GI Inspection: other (ostomy in place) Auscultation: normal bowel sounds General: No CVA tenderness and deferred Back/Spine/Pelvis Back: no CVA tenderness Skin General skin exam: no rashes or lesions noted Wounds: wounds noted (to bilateral sacrum and abd, surgical wound to abd. See wound care notes) Neuro General: patient alert, patient awake and patient oriented x3 Cognition: normal cognition Speech: speech normal Extrem General: normal to inspection and edema (+1) Laterality: bilateral Psych Appearance: grossly normal Mental Status: mental status grossly normal Speech and Movement: speech and movement normal Mood: congruent mood Affect: normal affect Attitude: cooperative Objective Last Vital Signs Temp 36.1 C L 07/27/21 06:40 Pulse 59 L 07/27/21 06:40 Resp 16 07/27/21 06:40 BP 133/77 07/27/21 06:40 Pulse Ox 99 07/27/21 06:40
[2021-07-27] MEDS: Enoxaparin 40 MG/0.4 ML SYR SC (18:44)
[2021-07-27 20:36] VITALS: BP 94/59; PULSE 74; RESP 18; TEMP 36.7; O2SAT 97
[2021-07-27] MEDS: Melatonin 3 MG TAB 9 MG PO (21:06)
[2021-07-27] MEDS: Acetaminophen 500 MG TAB 1000 MG PO (21:07)
[2021-07-27] MEDS: HYDROmorphone 2 MG TAB PO (21:07)
[2021-07-27] MEDS: Ibuprofen 600 MG TAB PO (21:07)
[2021-07-27] MEDS: Mirtazapine 15 MG TAB 7.5 MG PO (21:07)
[2021-07-28] MEDS: CEFEPIME 2 GM in Normal Saline 100 ML IVPB ×3 (02:29→18:35)
[2021-07-28] MEDS: Normal Saline Flush 10 ML SYR IVP ×3 (02:30→22:01)
[2021-07-28] MEDS: Protein Nutritional Supplement 16 GM 1 OUNCE PACKET PO ×2 (08:59→22:01)
[2021-07-28] MEDS: Polyethylene Glycol 3350 17 GM PACKET PO (08:59)
[2021-07-28] MEDS: Docusate Sodium 100 MG CAP PO ×3 (09:01→22:03)
[2021-07-28] MEDS: diazePAM 2 MG TAB PO ×3 (09:01→22:03)
[2021-07-28] MEDS: Pantoprazole 40 MG TABCR PO (09:02)
[2021-07-28] MEDS: Multivitamin w/Minerals TAB 1 TAB PO (09:02)
[2021-07-28] MEDS: Ascorbic Acid 500 MG TAB PO ×2 (09:02→22:02)
[2021-07-28] MEDS: Senna TAB 2 TAB PO ×2 (09:02→22:02)
[2021-07-28] MEDS: Magnesium Chloride 64 MG TABCR 128 MG PO ×2 (09:02→22:02)
[2021-07-28] MEDS: Cholecalciferol (Vitamin D3) 1,000 UNIT TAB 1000 UNITS PO (09:04)
[2021-07-28] MEDS: Collagenase 30 GM TUBE TP (09:04)
[2021-07-28] MEDS: amLODIPine 10 MG TAB PO (09:04)
[2021-07-28 09:42] VITALS: BP 104/77; PULSE 62; RESP 18; TEMP 36.3; O2SAT 98
[2021-07-28] MEDS: Normal Saline 500 ML 30 ML IV (09:51)
[2021-07-28 15:30] VITALS: BP 131/80; PULSE 61; RESP 18; TEMP 36.6; O2SAT 98
[2021-07-28] MEDS: Enoxaparin 40 MG/0.4 ML SYR SC (18:35)
[2021-07-28 22:00] VITALS: BP 123/71; PULSE 73; RESP 22; TEMP 37.5; O2SAT 96
[2021-07-28 22:02] VITALS: TEMP 37.5
[2021-07-28] MEDS: Acetaminophen 500 MG TAB 1000 MG PO (22:02)
[2021-07-28] MEDS: Melatonin 3 MG TAB 9 MG PO (22:02)
[2021-07-28] MEDS: Mirtazapine 15 MG TAB 7.5 MG PO (22:02)
[2021-07-28] MEDS: HYDROmorphone 2 MG TAB PO (22:03)
[2021-07-29] MEDS: Normal Saline 500 ML 30 ML IV (02:21)
[2021-07-29] MEDS: Normal Saline Flush 10 ML SYR IVP ×3 (02:22→21:56)
[2021-07-29] MEDS: CEFEPIME 2 GM in Normal Saline 100 ML IVPB ×3 (02:22→18:16)
--- NOTE | 2021-07-29 08:32 | PCPN_ITS ---
Date of service: 07/29/21 Assessment and Plan Assessment and plan (1) Chronic recurrent multifocal osteomyelitis: Status: Chronic (2) S/P colostomy: Status: Chronic (3) Major depressive disorder: Status: Chronic Qualifiers: Major depression recurrence: single episode Active/Remission status: currently active Major depression episode severity: moderate Qualified Code(s): F32.1 - Major depressive disorder, single episode, moderate (4) Quadriplegia: Status: Chronic (5) Palliative care encounter: Status: Acute Assessment and plan: I spent time with both Favio and Nicki. Favio is certain he wants to leave, and it will be AMA since a safe plan is not in place. Nicki is concerned because when he gets home and has a possible decline that he will refuse to return to a hospital. She understands that this is his choice. He says that he understands that by not returning to the hospital he may . We also talked about Hospice. He doesn't wish to go on Hospice now as he has plans to have [employer] build his home. [employer] already agreed to supply the wood. He plans to do the basic building this Fall and complete the building in the Spring. I am glad to hear he has plans even if they are not realistic. I did ask about fevers and what his plans were. He said that he would get antibiotics. Despite his quick answer he did not know where to get these antibiotics from. I recommended from his PCP who has not seen him since he became paraplegic. I will reach out to her today and see if she can come over and see Favio while in the hospital so that she can see what he is like Regarding his wounds with the sacral osteomyelitis?she will continue on antibiotics. He also will be given some dressings from the hospital. This will need to be closely monitored and at this point there is not a program management specialist monitoring them once he leaves the hospital AMA I also talked about the need to be in close contact with his PCP. Nicki felt that [facility] said that they had a 24-hour nurse available to talk with them. I explained that most likely the nurse is going to advised him to go to the hospital if anything is abnormal. I did give them my card and explained the palliative care is a consult service but the main people taking care of him once he leaves the hospital would be his PCP. Also the palliative care does not have after hours or weekend hours I did answer all of Favio's and Nicki's questions and brought up many scenarios that they have not yet considered. Considering they do not have caregivers in place, all of the equipment has not yet been delivered, they do not have home health services at this time etc. I to them very concerned about discharge. I did relay this information to hospitalist Dr. Barber Subjective Subjective Interval history since last seen: I spoke to Favio last week about discharge. He is adamant that he is going to leave even though it is AMA. He had a long discussion with multiple groups in the hospital to talk about how they can safely discharge him. He is no longer patient with discharge planning and wants to leave as soon as possible. His friend Nicki will be having him come to her home despite caregivers in the home. Nicki is presently caring for her mother with cancer and also working full-time. Exam Narrative Exam Narrative: Favio has always been very engaging with me when we talked about concerns etc. Today he was a little aloof but polite. Objective Last Vital Signs Temp 99.5 F 07/28/21 22:02 Pulse 73 07/28/21 22:00 Resp 22 07/28/21 22:00 BP 123/71 07/28/21 22:00 Pulse Ox 96 07/28/21 22:00
--- NOTE | 2021-07-29 08:41 | PDOC.CMPRO ---
- If Service Date Differs Date of service: 07/29/21 Time of Service: 08:42 Care Management Progress Note S/O: Favio remains on SB-1 awaiting LTM approval. A team meeting was held today to discuss Favio's intention to leave tomorrow. Present were Dr. Montoya, Magi White APRN, Rosmery Gregg, NIKHIL Ross, Ruby Barrera Director of Med-Surg, Ani, nursing varnish supervisor and ALCIDES Bryant. While Favio is medically ready for discharge,there is no safe discharge plan in place. There are no caregivers that can provide the level of care that he needs and no equipment has been delivered to Nicki's home. It was determined that if Favio does leave, it would be against medical advice. All further care coordination would need to come from the community and his primary care physician. It is unclear if home health would be able to provide services under these circumstances and transportation would need to be arranged by Favio or Nicki. CM met with Favio and Nicki this afternoon and reviewed the discussions from the meeting and were told that if he leaves it will be considered against medical advice. Favio's response was I don't care. During the discussion Favio was angry, rude and accusatory. He verbalized feeling that he is being kept a prisoner and that it is all Nicki's fault. He often swears at her and berates her in front of staff. He did so again today. Nicki verbalized not being willing to bring him to her home if all he can do is yell and swear at her. She also made it clear that she is unable to care for him without any additional support. The meeting ended with Favio refusing to engage in any additional conversation and with no clear plan. It is unclear if Favio will still attempt to leave tomorrow or if Nicki will allow him to come to her home. A:56 year old male admitted on 02/22/21 with constipation. He has had a complicated course which has included several SB-1 stays as well as acute admissions. P: Favio's discharge plan is now unclear. If he leaves tomorrow, it will be AMA. As of this afternoon it did not appear that Nicki would allow him to come to her home under these circumstances. She verbalized again that she cannot care for him all by herself; she needs additional caregivers and support to be able to safely meet his care needs. ALCIDES contacted [facility] regarding the hospital bed ordered last week and was told that it had been approved and is ready to be delivered. More information was sent to [facility] re: the patient lift. Favio's wheelchair has not been delivered. Only Favio has been in contact with the wheelchair company so it is unknown if or when that is planned. Clinical information was sent to [facility] for a preliminary review of Favio's needs and medical conditions. 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 CM will continue to support Favio and his family and assess for discharge planning considerations.
[2021-07-29 08:51] VITALS: BP 111/65; PULSE 62; RESP 18; TEMP 36.9; O2SAT 98
[2021-07-29] MEDS: Protein Nutritional Supplement 16 GM 1 OUNCE PACKET PO ×2 (09:07→21:56)
[2021-07-29] MEDS: Polyethylene Glycol 3350 17 GM PACKET PO (09:07)
[2021-07-29] MEDS: Cholecalciferol (Vitamin D3) 1,000 UNIT TAB 1000 UNITS PO (09:08)
[2021-07-29] MEDS: Docusate Sodium 100 MG CAP PO ×3 (09:08→21:57)
[2021-07-29] MEDS: amLODIPine 10 MG TAB PO (09:08)
[2021-07-29] MEDS: Senna TAB 2 TAB PO ×2 (09:08→21:57)
[2021-07-29] MEDS: Pantoprazole 40 MG TABCR PO (09:08)
[2021-07-29] MEDS: Ascorbic Acid 500 MG TAB PO ×2 (09:08→21:57)
[2021-07-29] MEDS: diazePAM 2 MG TAB PO ×3 (09:08→21:57)
[2021-07-29] MEDS: Magnesium Chloride 64 MG TABCR 128 MG PO ×2 (09:08→21:57)
[2021-07-29] MEDS: Multivitamin w/Minerals TAB 1 TAB PO (09:08)
--- NOTE | 2021-07-29 09:37 | NUR.NOTE ---
Nursing Note: At 0900 on 07/29/21, this RN entered the pt.'s room to perform a head to toe assessment and administer medications. RN said good morning to the pt.; pt. was flat and withdrawn and was noted to be listening to inappropriate music at a loud volume; pt. didn't make any eye contact with the RN and didn't respond to the RN. At 0908 on 07/29/21, once the RN had scanned all of the pt.'s medications, the RN asked the pt. to state their name and date of (per hospital policy). Pt. continued to ignore the RN and stare at their tablet. RN again asked the pt. to state their name and date of . Pt. finally stared at the RN and stated, What the fuck?! I don't understand why we have to do this every fucking time. I've been here for long enough. Don't you people know this by now? RN informed pt. that they have to ask the name and date of with medication administration per hospital policy. Pt. continued to ignore the RN and stare at their tablet before finally stating their name and date of in an agitated and loud tone of voice. RN then administered the medications to the pt. RN then asked the pt. if they could auscultate their heart and lungs and abdomen, as well as, inspect their abdominal dressing and ostomy. Pt. continued to ignore the RN and stare at their tablet. RN asked the pt. again if they could perform their head to toe assessment. Pt. stated, I don't understand why you need to. They haven't fucking changed since yesterday. RN informed pt. that they have to perform a head to toe assessment every shift per hospital policy. Pt. just sighed and rolled their eyes in response before finally stating, Fine. Whatever. Just go ahead. RN then performed the head to toe assessment. RN informed the pt. that they would need to perform a few dressing changes later on in the day. Pt. continued to stare at their tablet and just nodded in response. RN then informed the pt. that they would come and check on them again later and then stepped out of the pt.'s room. RN will reassess as necessary.
[2021-07-29] MEDS: Bacitracin 1 PACKET TP (12:36)
[2021-07-29] MEDS: Collagenase 30 GM TUBE TP (12:36)
[2021-07-29 15:50] VITALS: BP 136/87; PULSE 71; RESP 18; TEMP 36.8; O2SAT 97
[2021-07-29] MEDS: Enoxaparin 40 MG/0.4 ML SYR SC (18:16)
[2021-07-29 21:51] VITALS: BP 120/80; PULSE 80; RESP 12; TEMP 38.1; O2SAT 97
[2021-07-29 21:56] VITALS: TEMP 38.1
[2021-07-29] MEDS: Acetaminophen 500 MG TAB 1000 MG PO (21:56)
[2021-07-29] MEDS: Mirtazapine 15 MG TAB 7.5 MG PO (21:57)
[2021-07-29] MEDS: Melatonin 3 MG TAB 9 MG PO (21:57)
[2021-07-29 23:55] VITALS: TEMP 36.9
[2021-07-30] MEDS: Ibuprofen 600 MG TAB PO ×2 (00:05→21:18)
[2021-07-30] MEDS: HYDROmorphone 2 MG TAB PO ×2 (00:06→21:18)
[2021-07-30] MEDS: Normal Saline 500 ML 50 ML IV (02:27)
[2021-07-30] MEDS: CEFEPIME 2 GM in Normal Saline 100 ML IVPB ×3 (02:27→18:20)
[2021-07-30] MEDS: Normal Saline Flush 10 ML SYR IVP ×3 (02:27→21:17)
[2021-07-30 08:27] VITALS: BP 136/78; PULSE 64; RESP 16; TEMP 36; O2SAT 98
[2021-07-30] MEDS: Multivitamin w/Minerals TAB 1 TAB PO (09:43)
[2021-07-30] MEDS: Bacitracin 1 PACKET TP (09:43)
[2021-07-30] MEDS: Docusate Sodium 100 MG CAP PO ×3 (09:43→21:18)
[2021-07-30] MEDS: Ascorbic Acid 500 MG TAB PO ×2 (09:43→21:18)
[2021-07-30] MEDS: Pantoprazole 40 MG TABCR PO (09:43)
[2021-07-30] MEDS: Magnesium Chloride 64 MG TABCR 128 MG PO ×2 (09:43→21:17)
[2021-07-30] MEDS: amLODIPine 10 MG TAB PO (09:43)
[2021-07-30] MEDS: Cholecalciferol (Vitamin D3) 1,000 UNIT TAB 1000 UNITS PO (09:43)
[2021-07-30] MEDS: Senna TAB 2 TAB PO ×2 (09:44→21:17)
[2021-07-30] MEDS: Polyethylene Glycol 3350 17 GM PACKET PO (09:44)
[2021-07-30] MEDS: diazePAM 2 MG TAB PO ×3 (09:44→21:18)
[2021-07-30] MEDS: DULoxetine 30 MG CAP PO (09:44)
[2021-07-30] MEDS: Protein Nutritional Supplement 16 GM 1 OUNCE PACKET PO ×2 (09:44→21:17)
[2021-07-30] MEDS: Collagenase 30 GM TUBE TP (09:45)
--- NOTE | 2021-07-30 14:35 | TELEFU_ITS ---
Date of service: 07/30/21 Time of Service: 14:35 Nutritional Follow up NOTE: Mr. Velasquez continues to have a stable weight with efforts to continue on higher calorie/protein diet. His weight increased 9.5% over the last 8 days. He does report lower appetite due to monotony of the food choices. He loses appetite for lunch meal lately (refusing lunch) and the Ensure clear, yogurts, puddings, and liquid protein supplements are not consumed as often. Set out focus on his discharge and preparing for meeting his nutrition needs after discharged. He agreed that a sample menu targeting his calorie/protein needs will help - will get this tailored menu for him tomorrow. Will continue to mo nitor his intake and changes in nutrition status. Time Spent in Nutritional Counseling and Treatment: 30 minutes
[2021-07-30 16:42] VITALS: BP 151/80; PULSE 54; RESP 16; TEMP 36.5; O2SAT 95
[2021-07-30] MEDS: Enoxaparin 40 MG/0.4 ML SYR SC (18:19)
[2021-07-30] MEDS: Melatonin 3 MG TAB 9 MG PO (21:17)
[2021-07-30] MEDS: Acetaminophen 500 MG TAB 1000 MG PO (21:17)
[2021-07-30] MEDS: Mirtazapine 15 MG TAB 7.5 MG PO (21:18)
[2021-07-30 23:40] VITALS: BP 111/71; PULSE 60; RESP 18; TEMP 36.5; O2SAT 95
[2021-07-31] MEDS: Normal Saline 500 ML 50 ML IV (02:01)
[2021-07-31] MEDS: Normal Saline Flush 10 ML SYR IVP (02:01)
[2021-07-31] MEDS: CEFEPIME 2 GM in Normal Saline 100 ML IVPB ×3 (02:01→17:38)
[2021-07-31] MEDS: Protein Nutritional Supplement 16 GM 1 OUNCE PACKET PO ×2 (08:46→21:40)
[2021-07-31] MEDS: Polyethylene Glycol 3350 17 GM PACKET PO (08:46)
[2021-07-31] MEDS: Bacitracin 1 PACKET TP (08:46)
[2021-07-31] MEDS: Collagenase 30 GM TUBE TP (08:46)
[2021-07-31] MEDS: Multivitamin w/Minerals TAB 1 TAB PO (08:47)
[2021-07-31] MEDS: Magnesium Chloride 64 MG TABCR 128 MG PO ×2 (08:47→21:37)
[2021-07-31] MEDS: diazePAM 2 MG TAB PO ×3 (08:47→21:38)
[2021-07-31] MEDS: Ascorbic Acid 500 MG TAB PO ×2 (08:47→21:38)
[2021-07-31] MEDS: Pantoprazole 40 MG TABCR PO (08:47)
[2021-07-31] MEDS: DULoxetine 30 MG CAP PO (08:47)
[2021-07-31] MEDS: Cholecalciferol (Vitamin D3) 1,000 UNIT TAB 1000 UNITS PO (08:47)
[2021-07-31] MEDS: Senna TAB 2 TAB PO ×2 (08:47→21:37)
[2021-07-31] MEDS: Docusate Sodium 100 MG CAP PO ×3 (08:47→21:38)
[2021-07-31] MEDS: amLODIPine 10 MG TAB PO (08:47)
[2021-07-31 11:06] VITALS: BP 127/83; PULSE 64; RESP 18; TEMP 36.5; O2SAT 97
[2021-07-31] MEDS: Enoxaparin 40 MG/0.4 ML SYR SC (17:38)
[2021-07-31] MEDS: Melatonin 3 MG TAB 9 MG PO (21:36)
[2021-07-31] MEDS: Mirtazapine 15 MG TAB 7.5 MG PO (21:38)
[2021-07-31] MEDS: HYDROmorphone 2 MG TAB PO (21:39)
[2021-07-31 23:30] VITALS: BP 127/80; PULSE 66; RESP 17; TEMP 36.7; O2SAT 96
[2021-08-01] MEDS: CEFEPIME 2 GM in Normal Saline 100 ML IVPB ×3 (01:31→18:00)
[2021-08-01] MEDS: Normal Saline Flush 10 ML SYR IVP ×3 (01:31→18:01)
[2021-08-01] MEDS: Ascorbic Acid 500 MG TAB PO ×2 (08:44→20:57)
[2021-08-01] MEDS: Magnesium Chloride 64 MG TABCR 128 MG PO ×2 (08:44→20:57)
[2021-08-01] MEDS: Senna TAB 2 TAB PO ×2 (08:44→20:56)
[2021-08-01] MEDS: Cholecalciferol (Vitamin D3) 1,000 UNIT TAB 1000 UNITS PO (08:44)
[2021-08-01] MEDS: amLODIPine 10 MG TAB PO (08:45)
[2021-08-01] MEDS: Multivitamin w/Minerals TAB 1 TAB PO (08:45)
[2021-08-01] MEDS: DULoxetine 30 MG CAP PO (08:45)
[2021-08-01] MEDS: Pantoprazole 40 MG TABCR PO (08:45)
[2021-08-01] MEDS: Docusate Sodium 100 MG CAP PO ×3 (08:45→20:57)
[2021-08-01] MEDS: Bacitracin 1 PACKET TP (08:46)
[2021-08-01] MEDS: diazePAM 2 MG TAB PO ×3 (08:46→20:57)
[2021-08-01] MEDS: Protein Nutritional Supplement 16 GM 1 OUNCE PACKET PO ×2 (08:46→20:56)
[2021-08-01] MEDS: Polyethylene Glycol 3350 17 GM PACKET PO (08:46)
[2021-08-01 09:13] VITALS: BP 125/71; PULSE 66; RESP 19; TEMP 36; O2SAT 97
[2021-08-01] MEDS: Acetaminophen 500 MG TAB 1000 MG PO (17:12)
[2021-08-01] MEDS: Enoxaparin 40 MG/0.4 ML SYR SC (18:00)
[2021-08-01] MEDS: Collagenase 30 GM TUBE TP (18:00)
[2021-08-01 20:09] VITALS: BP 117/72; PULSE 64; RESP 18; TEMP 36.4; O2SAT 97
[2021-08-01] MEDS: Mirtazapine 15 MG TAB 7.5 MG PO (20:57)
[2021-08-01] MEDS: Melatonin 3 MG TAB 9 MG PO (20:57)
[2021-08-02] MEDS: CEFEPIME 2 GM in Normal Saline 100 ML IVPB ×2 (01:39→10:40)
[2021-08-02] MEDS: Normal Saline Flush 10 ML SYR IVP ×2 (01:40→10:40)
[2021-08-02] MEDS: Docusate Sodium 100 MG CAP PO ×2 (08:29→13:34)
[2021-08-02] MEDS: Magnesium Chloride 64 MG TABCR 128 MG PO (08:29)
[2021-08-02] MEDS: Pantoprazole 40 MG TABCR PO (08:29)
[2021-08-02] MEDS: Cholecalciferol (Vitamin D3) 1,000 UNIT TAB 1000 UNITS PO (08:29)
[2021-08-02] MEDS: Polyethylene Glycol 3350 17 GM PACKET PO (08:30)
[2021-08-02] MEDS: Multivitamin w/Minerals TAB 1 TAB PO (08:30)
[2021-08-02] MEDS: DULoxetine 30 MG CAP PO (08:30)
[2021-08-02] MEDS: Senna TAB 2 TAB PO (08:30)
[2021-08-02] MEDS: Ascorbic Acid 500 MG TAB PO (08:30)
[2021-08-02] MEDS: Bacitracin 1 PACKET TP (08:30)
[2021-08-02] MEDS: Protein Nutritional Supplement 16 GM 1 OUNCE PACKET PO (08:30)
[2021-08-02] MEDS: diazePAM 2 MG TAB PO ×2 (08:30→13:34)
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
--- NOTE | 2021-08-02 09:48 | CMDISCH_ITS ---
- If Service Date Differs Date of service: 08/02/21 Time of Service: 09:48 LACE Index Scoring Tool - Questions: Length of Stay (in days): 14 or more Acuity (Admit via E.D.?): Yes E.D. Visits: 2 - Answers: Total Score: 12 Risk of Readmission: High Risk Care Management Discharge Reason for Hospitalization: Obstipation, Stage IV decubitus ulcers, quadriplegia Discharge Plan: Favio will be discharged home to his caregiver, Nicki oGnzalez' home today. He will transport via ambulance with [facility], scheduled by [facility] for 2 pm. Favio will have home health services including nursing, PT, OT, CLOTH BLEACHING RANGE OPERATOR CHIEF and CROP OR LIVESTOCK TENANT FARMER support. [facility] was contacted yesterday by CM to notify them of the discharge. An Ostomy/Wound care consult is requested for Thursday with their nurse specialist as well. This morning Favio's fully electric bed and patient lift are being delivered by [employer] and tomorrow his wheelchair will be delivered. A follow up appointment was made with Favio's PCP Rayna Pino for August 06, 2021 at 3:30 pm, via Zoom. Referralds will be sent to [facility] [place] and Infectious Diseases for osteomyelitis and the many decubitus ulcers Favio has. Nicki has arranged caregivers for 25/05 coverage for Favio. She will be the primary caregiver with CASINO FLOOR PERSON support as well as that of friends and family. Ostomy and wound care supplies have been provided to last through the next few days. Patient/Family Education Needs: Review of discharge instructions, ostomy care, care of suprapubic tube, wound care, turning and repositioning, medications, follow up care, use of assistive devices such as wheelchair and patient lift. Services Needed at Discharge: Home Health Care Services, Physical Therapy, Transportation
[2021-08-02] MEDS: Normal Saline 500 ML 50 ML IV (10:42)
[2021-08-02] MEDS: Acetaminophen 500 MG TAB 1000 MG PO (11:13)
[2021-08-02] MEDS: Collagenase 30 GM TUBE TP (12:03)
--- NOTE | 2021-08-02 13:50 | PDOC.HHF2F_ITS ---
Home Health Certification Home Health Certification: 1. Encounter Date and Reason I certify that Bruce Velasquez Jr was seen by Eliane Tolliver on 08/02/21 and that I had a [id number] encounter with this patient that meets the physician face to face encounter requirements. 2. Clinical Findings Supporting Skilled Need and Homebound Status I certify that home health services are medically necessary, include either intermittent penitentiary and/or physical/speech therapy, and that this patie nt is homebound in that absences from the home require considerable and taxing effort and are infrequent or of short duration, or are attributable to the need to receive medical care. [X] (a) Attached documentation from encounter provides clinical findings supporting skilled need and homebound status (including what assistance patient requires to leave the home). The encounter with the patient was in whole, or in part, for the following medical condition, which is the primary reason for home health care: Quadrapelgic, Recurrent Osteo Fdc: Patient needs nursing for adls, meds, he also needs, wound care, ostomy care, and would benefit from SPECIAL EVENTS COORDINATOR as he is a quadriplegic with multiple wound Physical Therapy: Would benefit from PT and OT to continue to move extremities in setting of being a quadriplegic Patient would benefit from STAMPING MILL TENDER for community support Homebound: Unable to leave home without assistance 3. Certification and Authentication I certify that I composed the above information based on my clinical judgement relating to this patient's medical condition and, if applicable, clinical findings communicated to me by the NPP or inpatient physician who performed the Home Health Referral. All further orders will be obtained through Rayna Emerson_(Community Based Physician - PCP)
--- NOTE | 2021-08-02 15:21 | CHAPLAIN ---
I had a short visit with Favio before he was discharged today, after being here for five months. I gave him a prayer shawl to take with him.
== END 2021-08-02 14:27 | disposition home health service (06) | DRG 539 ==
PROVIDERS: Internal Medicine; Nurse Practitioner Acute Care; Admitting Provider Internal Medicine; PCP Nurse Practitioner Family; Visit Provider Internal Medicine
DX: M86.39 Chronic multifocal osteomyelitis, multiple sites (principal); L89.304 Pressure ulcer of unspecified buttock, stage 4; T83.511A Infection and inflammatory reaction due to indwelling urethral catheter, initial encounter; N39.0 Urinary tract infection, site not specified; G82.50 Quadriplegia, unspecified; F32.1 Major depressive disorder, single episode, moderate; K59.2 Neurogenic bowel, not elsewhere classified; K91.2 Postsurgical malabsorption, not elsewhere classified; L97.518 Non-pressure chronic ulcer of other part of right foot with other specified severity; Z93.3 Colostomy status; N31.9 Neuromuscular dysfunction of bladder, unspecified; F41.9 Anxiety disorder, unspecified; Z66 Do not resuscitate; Z86.718 Personal history of other venous thrombosis and embolism; Z98.1 Arthrodesis status; E87.6 Hypokalemia; I95.9 Hypotension, unspecified; D50.9 Iron deficiency anemia, unspecified; L60.0 Ingrowing nail; L03.032 Cellulitis of left toe
CPT/HCPCS: 11730; 11721; 10060; 36415; 80048; 80053; 84145; 85027; 87040; 87077; 90686; 99305; 99307; 99316; J1650; 71045; 81003; 81015; 83605; 84484; 85025; 86140; 87070; 87086; 87186; 87205; 99308; J0878; J3490

== ENCOUNTER 2021-08-09 16:07 | Outpatient (REF) | payer BC, SELFPAY ==
[2021-08-09 18:07] LABS: Bilirubin Negative (Negative); Blood Moderate (Negative); Clarity Cloudy (Clear); Glucose Negative (Negative); Ketones Negative (Negative); Leukocyte Esterase Small (Negative); Nitrite Negative (Negative); Specific Gravity >= 1.030 (1.005-1.025); Urobilinogen 0.2 EU/dL (Up TO 0.2)
[2021-08-09 18:24] LABS: Bacteria Many HPF (Negative); C & S Indicated? Yes; Casts Negative LPF (Negative); Crystals Negative HPF (Negative); Epithelial Cells Few HPF (Negative); Mucus Negative (Negative)
== END 2021-08-09 16:08 | disposition home or self-care (01) ==
LOC: LBN 16:07
PROVIDERS: PCP Nurse Practitioner Family; Visit Provider Nurse Practitioner Family
DX: N39.0 Urinary tract infection, site not specified (principal)
CPT/HCPCS: 81003; 81015; 87086

== ENCOUNTER 2021-09-01 12:02 | Inpatient (IN) | payer BC, SELFPAY ==
[2021-09-01] VITALS (34 sets, daily range): BP systolic 99–180; BP diastolic 59–104; PULSE 64–123; RESP 8–22; TEMP 36.8–37.1; O2SAT 95–98
--- NOTE | 2021-09-01 12:42 | ED.GENADUL_ITS ---
Discharge Plan Disposition Patient Disposition: [facility] INPATIENT Condition: Serious Discharge Details Chief Complaint: GenMedical Clinical Impression: Sepsis, Acute UTI Primary Care Provider: Rayna Pino ED Provider: Boo Mosquera Home Meds and New Rx's Prescriptions: No Action acetaminophen 500 mg capsule 1,000 mg PO Q8H RF: 0 albuterol sulfate 90 mcg/actuation aerosol powdr breath activated 2 inh inhalation Q4H PRN PRNRF: 0 docusate sodium [Colace] 100 mg capsule 100 mg PO TID RF: 0 bisacodyl [Dulcolax (bisacodyl)] 10 mg suppository See Rx Instructions .ROUTE .COMPLEX PRNRF: 0 Lactobacillus acidoph-L.bulgar [Floranex] 1 million cell tablet 1 tab PO TID RF: 0 polyethylene glycol 3350 [Miralax] 17 gram/dose powder 17 g PO DAILY RF: 0 senna 8.6 mg capsule 17.2 mg PO BID RF: 0 ascorbic acid (vitamin C) 500 mg Tablet 500 mg PO BID RF: 0 amlodipine 10 mg Tablet 10 mg PO DAILY RF: 0 pantoprazole 40 mg Tablet,Delayed Release (Dr/Ec) 40 mg PO DAILY RF: 0 lidocaine 5 % Adhesive Patch,Medicated 2 patch TOPICAL DAILY RF: 0 multivitamin,tx-minerals Tablet 1 tab PO DAILY RF: 0 diazepam 2 mg Tablet 2 mg PO TID Qty: 20 RF: 0 mirtazapine 15 mg Tablet 7.5 mg PO HS Qty: 14 RF: 0 Santyl 250 unit/gram Ointment 0 g topical DAILY Qty: 1 RF: 0 bacitracin 500 unit/gram Packet 1 packet topical DAILY Qty: 30 RF: 0 duloxetine 30 mg Capsule,Delayed Release(Dr/Ec) 30 mg PO DAILY Qty: 14 RF: 0 cholecalciferol (vitamin D3) 25 mcg (1,000 unit) Tablet 1,000 units PO DAILY Qty: 30 RF: 0 magnesium chloride [Mag 64] 64 mg Tablet,Delayed Release (Dr/Ec) 128 mg PO BID Qty: 28 RF: 0 amoxicillin-pot clavulanate [Augmentin] 875-125 mg tablet 1 tab PO BID Qty: 28 RF: 0 sulfamethoxazole-trimethoprim [Bactrim DS] 800-160 mg tablet 1 tab PO BID Qty: 28 RF: 0 Bio-K plus 50 billion cell capsule,delayed release(DR/EC) 1 cap PO DAILY Qty: 14 RF: 0 ondansetron HCl [Zofran] 4 mg Tablet 4 mg PO Q8H PRNRF: 0 Medical Decision Making 56-year-old gentleman with extensive past medical history of recent C6-C7 fracture-fusion approximately 1 year ago, recently hospitalized for several months for bilateral buttock decubitus ulcers and osteomyelitis. Discharged from the hospital and went back home where he does have resources on 08-02-21, placed on oral Bactrim and Augmentin for his wounds and osteomyelitis. He is presenting today for diaphoresis, simply not feeling well, a nonfunctioning suprapubic catheter. Bladder scanner reveals 960 cc. 2 attempts made to flush the catheter but they were unsuccessful. Will obtain IV access, give IV fluid, obtain CBC, CMP, urinalysis, and change out the suprapubic catheter. Catheter was changed without difficulty, urine flowed easily, nearly 1000 cc. Patient subjectively reports feeling improvement although he is still diaphoretic. CBC reveals leukocytosis of 12.98 with absolute neutrophils of 10.18 otherwise unremarkable. Electrolytes unremarkable, creatinine 1.0 with a GFR greater than 60, glucose 134, calcium 10.2 alk phosphatase 117, urinalysis moderate blood moderate leuk esterase with greater than 50 red and white cells. Negative epithelial. Many bacteria. When reviewing previous previous records, it would not appear as though the patient is always colonized with greater than 50 red and white cells. In the setting of tachycardia, clot suprapubic cath, already on oral Augmentin and Bactrim, concern for acute UTI, urosepsis given his overall presentation. Will now give a second liter of IV fluid, obtain CRP, sed rate, lactate, procalcitonin, Covid swab Covid negative, procalcitonin less than 0.1, lactate elevated at 1.7, ESR 28. Given his extensive past medical history, recent antibiotic therapy, now with leukocytosis, tachycardia, diaphoresis, clogged suprapubic catheter, I am concerned that he has already theoretically failed outpatient therapy, no resistant bacteria, and will likely require admission. I did discuss with both patient and his inner layer scrubber tender Nicki Gonzalez, at [phone]. They are both agreeable to admission. Nicki does let me know that he was scheduled to have his wounds culture tomorrow now that he is off antibiotics. Case discussed with our hospitalist team, Dr. Olson, who is agreeable to admission. Concern for urosepsis, would like to initiate 2 g IV ceftriaxone, does not feel as though culture of his chronic decubitus ulcers is indicated at this time. Antibiotics will be initiated here in the ER and the hospitalist team will provide admission orders. This documentation was generated using [employer]ation system, please disregard any oddities of phrase or misspellings. Medical Records Medical records reviewed: Yes I reviewed the patient's medical records. Lab Data Lab results reviewed: Yes I reviewed the patient's lab results. Labs: 09/01/21 13:55 Blood Blood Culture - Pending 09/01/21 12:55 Blood Blood Culture - Pending 09/01/21 13:05 Urine - Reflex from Ua Urine Culture - Pending Laboratory Tests Range/Units 09/01/21 09/01/21 09/01/21 12:55 12:55 12:55 WBC (4.4-10.8) 10^3/uL 12.98 H RBC (4.36-5.78) 10^6/uL 5.16 Hgb (13.5-17.5) g/dL 14.8 Hct (40.0-50.0) % 46.3 MCV (80-95) fL 89.7 MCH (27.0-33.0) pg 28.7 MCHC (32.0-36.0) % 32.0 RDW (11.8-14.1) % 12.7 Plt Count (130-400) 10^3/uL 286 MPV (8.0-11.0) fL 9.4 Immature Gran % 0.4 Neutrophils % 78.4 Lymphocytes % 14.4 Monocytes % 4.6 Eosinophils % 1.9 Basophils % 0.3 Nucleated RBC % % 0 Absolute Neutrophils (1.2-6.7) 10^3/uL 10.18 H Absolute Lymphocytes (1.2-3.4) 10^3/uL 1.87 Absolute Monocytes (0.1-0.8) 10^3/uL 0.60 Absolute Eosinophils (0.0-0.7) 10^3/uL 0.25 Absolute Basophils (0.0-0.2) 10^3/uL 0.04 ESR (0-20) mm/hr VBG Lactate (0.6-1.4) mmol/L Sodium (136-145) mmol/L 144 Potassium (3.5-5.1) mmol/L 3.7 Chloride (98-107) mmol/L 103 Carbon Dioxide (21.0-32.0) mmol/L 28.2 Anion Gap (3-11) mmol/L 12.8 H BUN (7-18) mg/dL 25 H Creatinine (0.70-1.30) mg/dL 1.0 Estimated GFR/1.73 m2 (mL/min/1.73m2) >= 60.00 Glucose (74-106) mg/dL 134 H Calcium (8.5-10.1) mg/dL 10.2 H Total Bilirubin (0.2-1.0) mg/dL 0.2 AST (15-37) U/L 19 ALT (16-63) U/L 46 Alkaline Phosphatase (46-116) U/L 117 H C-Reactive Protein (0.0-0.3) mg/dL 3.35 H Total Protein (6.4-8.2) g/dL 8.8 H Albumin (3.4-5.0) g/dL 3.9 Procalcitonin ng/mL Urine Color (Yellow) Urine Clarity (Clear) Urine pH (5-8) Ur Specific [place] (1.005-1.025) Urine Protein (Negative) mg/dL Urine Ketones (Negative) mg/dL Urine Blood (Negative) Urine Nitrite (Negative) Urine Bilirubin (Negative) Urine Urobilinogen (Up TO 0.2) EU/dL Ur Leukocyte Esterase (Negative) Urine RBC (0-2) HPF Urine WBC (0-5) HPF Ur Epithelial Cells (Negative) HPF Urine Crystals (Negative) HPF Urine Bacteria (Negative) HPF Urine Casts (Negative) LPF Urine Mucus (Negative) Ur Culture Indicated? Urine Glucose (Negative) mg/dL COVID-19 Source SARS-CoV-2 (PCR) (Negative) Range/Units 09/01/21 09/01/21 09/01/21 12:55 12:55 13:05 WBC (4.4-10.8) 10^3/uL RBC (4.36-5.78) 10^6/uL Hgb (13.5-17.5) g/dL Hct (40.0-50.0) % MCV (80-95) fL MCH (27.0-33.0) pg MCHC (32.0-36.0) % RDW (11.8-14.1) % Plt Count (130-400) 10^3/uL MPV (8.0-11.0) fL Immature Gran % Neutrophils % Lymphocytes % Monocytes % Eosinophils % Basophils % Nucleated RBC % % Absolute Neutrophils (1.2-6.7) 10^3/uL Absolute Lymphocytes (1.2-3.4) 10^3/uL Absolute Monocytes (0.1-0.8) 10^3/uL Absolute Eosinophils (0.0-0.7) 10^3/uL Absolute Basophils (0.0-0.2) 10^3/uL ESR (0-20) mm/hr 28 H VBG Lactate (0.6-1.4) mmol/L Sodium (136-145) mmol/L Potassium (3.5-5.1) mmol/L Chloride (98-107) mmol/L Carbon Dioxide (21.0-32.0) mmol/L Anion Gap (3-11) mmol/L BUN (7-18) mg/dL Creatinine (0.70-1.30) mg/dL Estimated GFR/1.73 m2 (mL/min/1.73m2) Glucose (74-106) mg/dL Calcium (8.5-10.1) mg/dL Total Bilirubin (0.2-1.0) mg/dL AST (15-37) U/L ALT (16-63) U/L Alkaline Phosphatase (46-116) U/L C-Reactive Protein (0.0-0.3) mg/dL Total Protein (6.4-8.2) g/dL Albumin (3.4-5.0) g/dL Procalcitonin ng/mL < 0.1 Urine Color (Yellow) Yellow Urine Clarity (Clear) Cloudy Urine pH (5-8) 5.5 Ur Specific [place] (1.005-1.025) 1.020 Urine Protein (Negative) mg/dL 30 H Urine Ketones (Negative) mg/dL Negative Urine Blood (Negative) Moderate H Urine Nitrite (Negative) Negative Urine Bilirubin (Negative) Negative Urine Urobilinogen (Up TO 0.2) EU/dL 0.2 Ur Leukocyte Esterase (Negative) Moderate H Urine RBC (0-2) HPF >50 H Urine WBC (0-5) HPF >50 H Ur Epithelial Cells (Negative) HPF Negative Urine Crystals (Negative) HPF Negative Urine Bacteria (Negative) HPF Many Urine Casts (Negative) LPF Negative Urine Mucus (Negative) Negative Ur Culture Indicated? Yes Urine Glucose (Negative) mg/dL Negative COVID-19 Source SARS-CoV-2 (PCR) (Negative) Range/Units 09/01/21 09/01/21 13:20 13:55 WBC (4.4-10.8) 10^3/uL RBC (4.36-5.78) 10^6/uL Hgb (13.5-17.5) g/dL Hct (40.0-50.0) % MCV (80-95) fL MCH (27.0-33.0) pg MCHC (32.0-36.0) % RDW (11.8-14.1) % Plt Count (130-400) 10^3/uL MPV (8.0-11.0) fL Immature Gran % Neutrophils % Lymphocytes % Monocytes % Eosinophils % Basophils % Nucleated RBC % % Absolute Neutrophils (1.2-6.7) 10^3/uL Absolute Lymphocytes (1.2-3.4) 10^3/uL Absolute Monocytes (0.1-0.8) 10^3/uL Absolute Eosinophils (0.0-0.7) 10^3/uL Absolute Basophils (0.0-0.2) 10^3/uL ESR (0-20) mm/hr VBG Lactate (0.6-1.4) mmol/L 1.7 H Sodium (136-145) mmol/L Potassium (3.5-5.1) mmol/L Chloride (98-107) mmol/L Carbon Dioxide (21.0-32.0) mmol/L Anion Gap (3-11) mmol/L BUN (7-18) mg/dL Creatinine (0.70-1.30) mg/dL Estimated GFR/1.73 m2 (mL/min/1.73m2) Glucose (74-106) mg/dL Calcium (8.5-10.1) mg/dL Total Bilirubin (0.2-1.0) mg/dL AST (15-37) U/L ALT (16-63) U/L Alkaline Phosphatase (46-116) U/L C-Reactive Protein (0.0-0.3) mg/dL Total Protein (6.4-8.2) g/dL Albumin (3.4-5.0) g/dL Procalcitonin ng/mL Urine Color (Yellow) Urine Clarity (Clear) Urine pH (5-8) Ur Specific [place] (1.005-1.025) Urine Protein (Negative) mg/dL Urine Ketones (Negative) mg/dL Urine Blood (Negative) Urine Nitrite (Negative) Urine Bilirubin (Negative) Urine Urobilinogen (Up TO 0.2) EU/dL Ur Leukocyte Esterase (Negative) Urine RBC (0-2) HPF Urine WBC (0-5) HPF Ur Epithelial Cells (Negative) HPF Urine Crystals (Negative) HPF Urine Bacteria (Negative) HPF Urine Casts (Negative) LPF Urine Mucus (Negative) Ur Culture Indicated? Urine Glucose (Negative) mg/dL COVID-19 Source Nasal/Nares SARS-CoV-2 (PCR) (Negative) Negative HPI General Mode of arrival: EMS . Date/Time Provider Initiated Documentation: 09/01/21 12:14 . Limitations to Documentation: no limitations . Information obtained by: patient and EMS . HPI Narrative: This is a 56-year-old gentleman, past medical history that includes DVT, anxiety, C. difficile, neurogenic bowel, stage IV decubitus ulcers bilateral buttocks, C6-C7 fracture resulting in quadriplegia and spinal fusion, DNR, DNI, anemia, depression, neurogenic bladder, suprapubic catheter, colostomy, recently treated for bilateral decubitus ulcers and osteomyelitis, presenting today reporting diaphoresis, and suprapubic catheter not draining properly. The patient finished Bactrim and Augmentin on Thursday for his osteomyelitis. Patient lives at home with his family and does have home health coming in for his medical needs. Patient reports a very similar presentation previously when his suprapubic catheter has been malfunctioning. Patient states that after he was moved around a bit he noticed some urine leaking from around the suprapubic catheter and states that he feels less sweaty and overall better now that there is less urine in his bladder. Related Data Home Medications Medication Instructions Recorded Confirmed Lactobacillus acidoph-L.bulgaricus 1 tab PO TID tab 01/29/21 09/01/21 1 million cell tablet acetaminophen 500 mg capsule 1,000 mg PO Q8H cap 01/29/21 08/12/21 albuterol sulfate 90 mcg/actuation 2 inh INHALATION Q4H PRN PRN 01/29/21 08/12/21 breath activated powder inhaler bisacodyl 10 mg rectal suppository See Rx Instructions .ROUTE 01/29/21 08/12/21 .COMPLEX PRN docusate sodium 100 mg capsule 100 mg PO TID 01/29/21 09/01/21 polyethylene glycol 3350 17 17 g PO DAILY 01/29/21 09/01/21 gram/dose oral powder sennosides 8.6 mg capsule 17.2 mg PO BID 01/29/21 09/01/21 ondansetron HCl [Zofran] 4 mg PO Q8H PRN 02/20/21 09/01/21 amlodipine 10 mg PO DAILY 04/10/21 09/01/21 ascorbic acid (vitamin C) 500 mg PO BID 04/10/21 09/01/21 lidocaine 2 patch TOPICAL DAILY 04/10/21 09/01/21 multivitamin,tx-minerals 1 tab PO DAILY 04/10/21 09/01/21 pantoprazole 40 mg PO DAILY 04/10/21 09/01/21 L. acidophilus,casei,rhamnosus 1 cap PO DAILY #14 cap 08/02/21 09/01/21 [Bio-K plus] amoxicillin-pot clavulanate 1 tab PO BID #28 tab 08/02/21 08/12/21 [Augmentin] bacitracin 1 packet TOPICAL DAILY #30 pkg 08/02/21 08/12/21 cholecalciferol (vitamin D3) 1,000 units PO DAILY #30 tab 08/02/21 09/01/21 collagenase clostridium histo. 0 g TOPICAL DAILY #1 g 08/02/21 08/12/21 [Santyl] diazepam 2 mg PO TID #20 tab 08/02/21 09/01/21 duloxetine 30 mg PO DAILY #14 cap 08/02/21 09/01/21 magnesium chloride [Mag 64] 128 mg PO BID #28 tab 08/02/21 09/01/21 mirtazapine 7.5 mg PO HS #14 tab 08/02/21 09/01/21 sulfamethoxazole-trimethoprim 1 tab PO BID #28 tab 08/02/21 08/12/21 [Bactrim DS] Previous Rx's Medication Instructions Recorded L. acidophilus,casei,rhamnosus 1 cap PO DAILY #14 cap 08/02/21 [Bio-K plus] amoxicillin-pot clavulanate 1 tab PO BID #28 tab 08/02/21 [Augmentin] bacitracin 1 packet TOPICAL DAILY #30 pkg 08/02/21 cholecalciferol (vitamin D3) 1,000 units PO DAILY #30 tab 08/02/21 collagenase clostridium histo. 0 g TOPICAL DAILY #1 g 08/02/21 [Santyl] diazepam 2 mg PO TID #20 tab 08/02/21 duloxetine 30 mg PO DAILY #14 cap 08/02/21 magnesium chloride [Mag 64] 128 mg PO BID #28 tab 08/02/21 mirtazapine 7.5 mg PO HS #14 tab 08/02/21 sulfamethoxazole-trimethoprim 1 tab PO BID #28 tab 08/02/21 [Bactrim DS] Allergies Allergy/AdvReac Type Severity Reaction Status Date / Time No Known Allergies Allergy Unverified 09/01/21 12:15 General Stated Complaint: GenMedical LU: 2 Review of Systems Constitutional Constitutional: Denies fever(s) and Reports other (Sweating today) ENT Ears, Nose, Mouth, and Throat: Denies neck pain Cardiovascular Cardiovascular: Denies chest pain and Denies dyspnea Respiratory Respiratory: Denies cough and Denies dyspnea Gastrointestinal Gastrointestinal: Denies melena, Denies hematochezia and Denies vomiting Genitourinary Genitourinary: Denies hematuria Musculoskeletal Musculoskeletal: Denies neck pain Integumentary/Breasts Comments: Chronic wounds Neurologic Comments: No sensation below the chest other than his right toes Psychiatric Psychiatric: Reports depression and Denies suicidal ideation [facility] Medical History Acute embolism and thrombosis of deep vein of right lower extremity Anxiety disorder Aspiration into airway C. difficile colitis Constipation Constipation due to neurogenic bowel Decubitus skin ulcer Decubitus ulcer of buttock, stage 4 Dislocation of C6/C7 cervical vertebrae DNR (do not resuscitate) DVT (deep venous thrombosis) DVT prophylaxis Encounter for wound care Fall down embankment Fusion of spine H/O deep venous thrombosis Hypokalemia Hypotension Ileus Iron deficiency anemia Large bowel obstruction Major depressive disorder Malnutrition following gastrointestinal surgery Neurogenic bladder Neurogenic bowel Open wound of abdominal wall Palliative care patient Physician orders for life-sustaining treatment (POLST) form indicates patient wish for ch-[id number] status Quadriplegia Right arm pain Visit for wound check Surgical History S/P colostomy Social History Smoking/Tobacco Use Status: Never Smoking risk assessment performed?: Yes Alcohol Intake: former Drug use: Occasionally Substance use type: marijuana Do you feel safe at home: Yes Do you feel safe in your relationship?: Yes Exam Const General: cooperative, comfortable, no acute distress, diaphoretic and ill appearing chronically Orientation: alert, awake and oriented x3 HENMT Head: normal to inspection, normocephalic and atraumatic Mouth: moist mucous membranes abnormal (Slightly dry) Eyes General: appearance normal, both eyes and all related structures Conjunctivae: conjunctivae normal Neck Neck: normal visual inspection, trachea midline and supple Resp Effort & Inspection: normal respiratory effort and able to speak in complete sentences Auscultation: clear to auscultation bilaterally Cardio Rate: tachycardic (112) Rhythm: regular rhythm GI Palpation: soft, not firm, no guarding, no pulsatile masses and nontender Auscultation: normal bowel sounds Other: Both a suprapubic catheter and colostomy are present. There is dark brown stool noted in the colostomy bag. Stoma appears normal. Male General Exam: Yes normal external exam Back/Spine/Pelvis Back: other (Normal back visual inspection) Skin Other: The patient has 2 separate stage IV decubitus ulcers to each buttocks. They appear to be packed and dressed appropriately. Dressing was removed for evaluation. No erythema, warmth, purulent drainage Neuro General: patient alert, patient awake, patient oriented x3 and other (Patient is able to move his upper extremities, baseline per patient) Cognition: normal cognition Speech: speech normal Extrem General: normal to inspection and capillary refill normal Psych Appearance: grossly normal Mental Status: mental status grossly normal Course Vital Signs Vital signs: Vital Signs Temperature 36.8 C 09/01/21 12:06 Pulse 112 H 09/01/21 12:06 Respiratory Rate 15 09/01/21 12:06 Blood Pressure 154/86 H 09/01/21 12:06 Pulse Oximetry 96 09/01/21 12:06 Temperature 36.8 C 09/01/21 12:06 Temperature Source Oral 09/01/21 12:06 Pulse 112 H 09/01/21 12:06 Respiratory Rate 15 09/01/21 12:06 Respiratory Effort Non-Labored 09/01/21 12:18 Respiratory Depth Normal 09/01/21 12:18 Respiratory Pattern Normal 09/01/21 12:18 Blood Pressure 154/86 H 09/01/21 12:06 Blood Pressure Position Supine 09/01/21 12:06 Pulse Oximetry 96 09/01/21 12:06 Oxygen Delivery Method Room Air 09/01/21 12:06 Oxygen Flow Rate 0 09/01/21 12:06 Pain Level 4 09/01/21 12:06 Critical Care Time Critical Care Time Critical Care Time: Yes Total Critical Care Time: 35 Attestation: Upon my evaluation, this patient had a high probability of clinically significant, life-threatening deterioration due to their current medical conditions, which required my direct attention, intervention, and personal management. I have personally provided greater than 30 minutes of critical care time exclusive of the time spend on separately billable procedures. Time includes obtaining a history, examining the patient, pulse oximetry, review of laboratory data, radiology results, discussion with consultants, arranging urgent treatment with development of a management plan, evaluation of patient's response to treatment, and monitoring for potential decompensation. Interventions were performed as documented above.
[2021-09-01 13:01] LABS: Abs Immature Grans 0.05 10^3/uL (0.0-0.06); Absolute Basophil Count 0.04 10^3/uL (0.0-0.2); Absolute Eosinophil Count 0.25 10^3/uL (0.0-0.7); Absolute Lymphocyte Count 1.87 10^3/uL (1.2-3.4); Basophils % 0.3; Eosinophils % 1.9; HCT 46.3 % (40.0-50.0); HGB 14.8 g/dL (13.5-17.5); Immature Grans % 0.4; Lymphocytes % 14.4; MCH 28.7 pg (27.0-33.0); MCV 89.7 fL (80-95); MPV 9.4 fL (8.0-11.0); Monocytes % 4.6; Neutrophils % 78.4; Nucleated RBC 0 %; Platelet Count 286 10^3/uL (130-400); RBC 5.16 10^6/uL (4.36-5.78); RDW 12.7 % (11.8-14.1); RDW-SD 42.3 fL; WBC 12.98 10^3/uL (4.4-10.8)
[2021-09-01 13:02] LABS: Absolute Neutrophil Count 10.18 10^3/uL (1.2-6.7)
[2021-09-01 13:10] LABS: Bilirubin Negative (Negative); Blood Moderate (Negative); Glucose Negative (Negative); Ketones Negative (Negative); Leukocyte Esterase Moderate (Negative); Nitrite Negative (Negative); Urobilinogen 0.2 EU/dL (Up TO 0.2); pH 5.5 (5-8)
[2021-09-01 13:15] LABS: ALT 46 U/L (16-63); AST 19 U/L (15-37); Albumin 3.9 g/dL (3.4-5.0); Alkaline Phosphatase 117 U/L (46-116); Anion Gap 12.8 mmol/L (3-11); BUN 25 mg/dL (7-18); Bilirubin, Total 0.2 mg/dL (0.2-1.0); CO2 28.2 mmol/L (21.0-32.0); Calcium 10.2 mg/dL (8.5-10.1); Chloride 103 mmol/L (98-107); Glucose 134 mg/dL (74-106); Potassium 3.7 mmol/L (3.5-5.1); Sodium 144 mmol/L (136-145); Total Protein 8.8 g/dL (6.4-8.2)
[2021-09-01 13:16] LABS: Clarity Cloudy (Clear)
[2021-09-01 13:17] LABS: Bacteria Many HPF (Negative); C & S Indicated? Yes; Casts Negative LPF (Negative); Crystals Negative HPF (Negative); Epithelial Cells Negative HPF (Negative); Mucus Negative (Negative); RBC >50 HPF (0-2); WBC >50 HPF (0-5)
[2021-09-01 13:25] LABS: Source Nasal/Nares
[2021-09-01 13:39] LABS: C-Reactive Protein 3.35 mg/dL (0.0-0.3); ESR 28 mm/hr (0-20)
[2021-09-01 13:58] LABS: Lactate 1.7 mmol/L (0.6-1.4)
[2021-09-01 14:05] LABS: Procalcitonin < 0.1 ng/mL
[2021-09-01 14:20] LABS: COVID-19 PCR Negative (Negative)
--- NOTE | 2021-09-01 14:27 | W.PM.HP.N ---
Date of service: 09/01/21 Time of Service: 14:28 Assessment and Plan Assessment and plan (1) UTI (urinary tract infection): Status: Acute Assessment and plan: ceftriaxone 2 gm IVPB started based on last culture cultures pending Qualifiers: Encounter type: initial encounter Indwelling urinary catheter type: indwelling urethral catheter Urinary tract infection type: catheter-associated UTI Qualified Code(s): T83.511A - Infection and inflammatory reaction due to indwelling urethral catheter, initial encounter; N39.0 - Urinary tract infection, site not specified (2) Indwelling catheter replaced: Status: Acute Assessment and plan: suprapubic catheter plugged, replaced in the ED (3) Chronic recurrent multifocal osteomyelitis: Status: Chronic Assessment and plan: continue routine wound care per outpatient team has appointment at [facility] wound care (4) Discharge planning issues: Status: Acute Assessment and plan: discharge to home with resumption of services in 1-2 days if he remains medically stable. discussed with Dr Olson History of Present Illness History of Present Illness Chief Complaint: suprapubic catheter plugged Narrative: This is a 56-year-old gentleman, complex past medical history that includes C6-C7 fracture resulting in quadriplegia and spinal fusion, C. difficile, neurogenic bowel s/p colostomy, stage IV decubitus ulcers bilateral buttocks with osteomyelitis, anemia, depression, neurogenic bladder with suprapubic catheter, DVT, who presenting today to the ED reporting diaphoresis, and suprapubic catheter not draining properly. The patient finished Bactrim and Augmentin on Thursday for his osteomyelitis. Patient lives at home with his family and does have home health coming in for his medical needs. Patient reports a very similar presentation previously when his suprapubic catheter has been malfunctioning. Patient states that after he was moved around a bit he noticed some urine leaking from around the suprapubic catheter and states that he feels less sweaty and overall better now that there is less urine in his bladder. Review of Systems All systems reviewed & are unremarkable except as noted in HPI and below Constitutional Constitutional: Denies fever(s) Eyes Eyes: Denies change in vision Cardiovascular Cardiovascular: Denies chest pain, Reports diaphoresis and Denies dyspnea Respiratory Respiratory: Denies cough and Denies dyspnea Gastrointestinal Gastrointestinal: Denies abdominal pain, Denies constipation and Denies vomiting Genitourinary Genitourinary: Reports other (plugged suprapubic catheter, reports has had sediment and cloudy. ) Integumentary/Breasts Skin/Breast: Reports sores (right heel, mid abdomen, sacral ) PFS Medical History Acute embolism and thrombosis of deep vein of right lower extremity Anxiety disorder Aspiration into airway C. difficile colitis Constipation Constipation due to neurogenic bowel Decubitus skin ulcer Decubitus ulcer of buttock, stage 4 Dislocation of C6/C7 cervical vertebrae DNR (do not resuscitate) DVT (deep venous thrombosis) DVT prophylaxis Encounter for wound care Fall down embankment Fusion of spine H/O deep venous thrombosis Hypokalemia Hypotension Ileus Iron deficiency anemia Large bowel obstruction Major depressive disorder Malnutrition following gastrointestinal surgery Neurogenic bladder Neurogenic bowel Open wound of abdominal wall Palliative care patient Physician orders for life-sustaining treatment (POLST) form indicates patient wish for [id number] status Quadriplegia Right arm pain Visit for wound check Surgical History S/P colostomy Social History Smoking/Tobacco Use Status: Never Smoking risk assessment performed?: Yes Alcohol Intake: former Drug use: Occasionally Substance use type: marijuana Do you feel safe at home: Yes Do you feel safe in your relationship?: Yes Meds Allergies and Home Medications Allergies Allergy/AdvReac Type Severity Reaction Status Date / Time No Known Allergies Allergy Unverified 09/01/21 12:15 Home Medications Medication Instructions Recorded Confirmed Type Lactobacillus acidoph-L.bulgaricus 1 tab PO TID tab 01/29/21 09/01/21 History 1 million cell tablet acetaminophen 500 mg capsule 1,000 mg PO Q8H cap 01/29/21 08/12/21 History albuterol sulfate 90 mcg/actuation 2 inh INHALATION Q4H PRN PRN 01/29/21 08/12/21 History breath activated powder inhaler bisacodyl 10 mg rectal suppository See Rx Instructions .ROUTE 01/29/21 08/12/21 History .COMPLEX PRN docusate sodium 100 mg capsule 100 mg PO TID 01/29/21 09/01/21 History polyethylene glycol 3350 17 17 g PO DAILY 01/29/21 09/01/21 History gram/dose oral powder sennosides 8.6 mg capsule 17.2 mg PO BID 01/29/21 09/01/21 History ondansetron HCl [Zofran] 4 mg PO Q8H PRN 02/20/21 09/01/21 History amlodipine 10 mg PO DAILY 04/10/21 09/01/21 History ascorbic acid (vitamin C) 500 mg PO BID 04/10/21 09/01/21 History lidocaine 2 patch TOPICAL DAILY 04/10/21 09/01/21 History multivitamin,tx-minerals 1 tab PO DAILY 04/10/21 09/01/21 History pantoprazole 40 mg PO DAILY 04/10/21 09/01/21 History L. acidophilus,casei,rhamnosus 1 cap PO DAILY #14 cap 08/02/21 09/01/21 Rx [Bio-K plus] amoxicillin-pot clavulanate 1 tab PO BID #28 tab 08/02/21 08/12/21 Rx [Augmentin] bacitracin 1 packet TOPICAL DAILY #30 pkg 08/02/21 08/12/21 Rx cholecalciferol (vitamin D3) 1,000 units PO DAILY #30 tab 08/02/21 09/01/21 Rx collagenase clostridium histo. 0 g TOPICAL DAILY #1 g 08/02/21 08/12/21 Rx [Santyl] diazepam 2 mg PO TID #20 tab 08/02/21 09/01/21 Rx duloxetine 30 mg PO DAILY #14 cap 08/02/21 09/01/21 Rx magnesium chloride [Mag 64] 128 mg PO BID #28 tab 08/02/21 09/01/21 Rx mirtazapine 7.5 mg PO HS #14 tab 08/02/21 09/01/21 Rx sulfamethoxazole-trimethoprim 1 tab PO BID #28 tab 08/02/21 08/12/21 Rx [Bactrim DS] Exam Const General: cooperative, no acute distress and ill appearing chronically Nutritional Appearance: average body habitus Orientation: alert, awake and oriented x3 HENMT Head: normal to inspection, normocephalic and atraumatic Resp Effort & Inspection: no cough Cardio Rate: regular rate Rhythm: regular rhythm GI Inspection: other (suprapubic catheter intact, insertion site clear, colostomy bag intact,) Palpation: soft and other (soft brown stool in colostomy) Skin Lesions: lesion noted Full body images: 1. suprapubic catheter 2. colostomy 3. open lesion 4. pressure ulcer. Neuro General: patient alert, patient awake and patient oriented x3 Cognition: normal cognition Extrem General: edema Laterality: bilateral and muscle atrophy (parapelgic) of the right lower extremity and of the left lower extremity Results Labs Result diagrams: 09/01/21 12:55 09/01/21 12:55 Labs: Laboratory Results - last 24 hr 09/01/21 09/01/21 09/01/21 12:55 12:55 12:55 WBC 12.98 H RBC 5.16 Hgb 14.8 Hct 46.3 MCV 89.7 MCH 28.7 MCHC 32.0 RDW 12.7 Plt Count 286 MPV 9.4 Immature Gran % 0.4 Neutrophils % 78.4 Lymphocytes % 14.4 Monocytes % 4.6 Eosinophils % 1.9 Basophils % 0.3 Nucleated RBC % 0 Absolute Neutrophils 10.18 H Absolute Lymphocytes 1.87 Absolute Monocytes 0.60 Absolute Eosinophils 0.25 Absolute Basophils 0.04 ESR VBG Lactate Sodium 144 Potassium 3.7 Chloride 103 Carbon Dioxide 28.2 Anion Gap 12.8 H BUN 25 H Creatinine 1.0 Estimated GFR/1.73 m2 >= 60.00 Glucose 134 H Calcium 10.2 H Total Bilirubin 0.2 AST 19 ALT 46 Alkaline Phosphatase 117 H C-Reactive Protein 3.35 H Total Protein 8.8 H Albumin 3.9 Procalcitonin Urine Color Urine Clarity Urine pH Ur Specific [place] Urine Protein Urine Ketones Urine Blood Urine Nitrite Urine Bilirubin Urine Urobilinogen Ur Leukocyte Esterase Urine RBC Urine WBC Ur Epithelial Cells Urine Crystals Urine Bacteria Urine Casts Urine Mucus Ur Culture Indicated? Urine Glucose COVID-19 Source SARS-CoV-2 (PCR) 09/01/21 09/01/21 09/01/21 12:55 12:55 13:05 WBC RBC Hgb Hct MCV MCH MCHC RDW Plt Count MPV Immature Gran % Neutrophils % Lymphocytes % Monocytes % Eosinophils % Basophils % Nucleated RBC % Absolute Neutrophils Absolute Lymphocytes Absolute Monocytes Absolute Eosinophils Absolute Basophils ESR 28 H VBG Lactate Sodium Potassium Chloride Carbon Dioxide Anion Gap BUN Creatinine Estimated GFR/1.73 m2 Glucose Calcium Total Bilirubin AST ALT Alkaline Phosphatase C-Reactive Protein Total Protein Albumin Procalcitonin < 0.1 Urine Color Yellow Urine Clarity Cloudy Urine pH 5.5 Ur Specific [place] 1.020 Urine Protein 30 H Urine Ketones Negative Urine Blood Moderate H Urine Nitrite Negative Urine Bilirubin Negative Urine Urobilinogen 0.2 Ur Leukocyte Esterase Moderate H Urine RBC >50 H Urine WBC >50 H Ur Epithelial Cells Negative Urine Crystals Negative Urine Bacteria Many Urine Casts Negative Urine Mucus Negative Ur Culture Indicated? Yes Urine Glucose Negative COVID-19 Source SARS-CoV-2 (PCR) 09/01/21 09/01/21 13:20 13:55 WBC RBC Hgb Hct MCV MCH MCHC RDW Plt Count MPV Immature Gran % Neutrophils % Lymphocytes % Monocytes % Eosinophils % Basophils % Nucleated RBC % Absolute Neutrophils Absolute Lymphocytes Absolute Monocytes Absolute Eosinophils Absolute Basophils ESR VBG Lactate 1.7 H Sodium Potassium Chloride Carbon Dioxide Anion Gap BUN Creatinine Estimated GFR/1.73 m2 Glucose Calcium Total Bilirubin AST ALT Alkaline Phosphatase C-Reactive Protein Total Protein Albumin Procalcitonin Urine Color Urine Clarity Urine pH Ur Specific [place] Urine Protein Urine Ketones Urine Blood Urine Nitrite Urine Bilirubin Urine Urobilinogen Ur Leukocyte Esterase Urine RBC Urine WBC Ur Epithelial Cells Urine Crystals Urine Bacteria Urine Casts Urine Mucus Ur Culture Indicated? Urine Glucose COVID-19 Source Nasal/Nares SARS-CoV-2 (PCR) Negative Last Vital Signs Temp 36.8 C 09/01/21 12:06 Pulse 102 H 09/01/21 13:45 Resp 21 09/01/21 13:45 BP 107/59 L 09/01/21 13:45 Pulse Ox 97 09/01/21 13:45
[2021-09-01] MEDS: Normal Saline 1,000 ML 1000 ML IV (14:32)
[2021-09-01] MEDS: cefTRIAXone 2 GM/50 ML BAG IVPB (14:33)
[2021-09-01] MEDS: Normal Saline 1,000 ML 100 ML IV (16:11)
--- NOTE | 2021-09-01 18:52 | DI.US_ITS ---
Exam(s) US RENAL EXAM: US RENAL CLINICAL HISTORY: plugged suprapubic catheter TECHNIQUE: Ultrasound of both kidneys performed using standard protocol. COMPARISON: US US EXTREMITY VENOUS BI from 07/03/2021 CR,XR XR PORTABLE CHEST AP from 07/12/2021 FINDINGS: RIGHT KIDNEY: Measures 12.2 cm in length. No cysts evident. Normal cortical thickness and corticomedullary differen tiation .No solid masses Is-5 millimeter hyperechoic focus in the inferior pole of the right kidney. This may represent a non obstructive calculus. No hydronephrosis. LEFT KIDNEY: Measures 12.6 cm in length. No cysts evident. Normal cortical thickness and corticomedullary differe ntiaion. No solids masses. No intrarenal calculi nor hydonephrosis. URINARY BLADDER: Bladder is empty.. Apparently there is a indwelling catheter which was not clamped. IMPRESSION: 1. Possible nonobstructive calculus in the lower pole the right kidney. No other focal renal findin gs. 2. The bladder was empty and therefore not able to be studied DATA REPOSITORY:
--- NOTE | 2021-09-01 19:18 | DI.VRAD_ITS ---
PROCEDURE INFORMATION: Exam: US Retroperitoneal; Complete; Kidneys and Bladder Exam date and time: 09/01/2021 6:52 PM Age: 56 years old Clinical indication: Device placement; Urinary device; Other: Suprapubic catheter TECHNIQUE: Imaging protocol: Real-time ultrasound of the retroperitoneum with image documentation. Complete exam focused on the kidneys and bladder. COMPARISON: CT ABDOMEN WO 06/17/2021 2:41 PM FINDINGS: Right kidney: The right kidney measures 12.2 cm. The lower pole of the right kidney is obscured. Within the limits of visualization, no mass or hydronephrosis is demonstrated. Left kidney: The left kidney measures 12.6 cm. The left kidney is partially obscured by artifact. Within the limits of visualization, no gross mass or hydronephrosis is demonstrated. Urinary bladder: The urinary bladder is completely collapsed around what appears to be a Beck catheter balloon, and is poorly evaluated. Echogenic foci in the bladder may represent intravesical gas associated with the catheter although echogenic debris could have a similar appearance. IMPRESSION: 1. No hydronephrosis. 2. Urinary bladder collapsed around what appears to be a Beck catheter balloon, and poorly evaluated. Dictated and Authenticated by: Feng Almanza MD. Ordering:JENNIFER Nguyen MD
[2021-09-01] MEDS: Ascorbic Acid 500 MG TAB PO (20:13)
[2021-09-01] MEDS: Docusate Sodium 100 MG CAP PO (20:13)
[2021-09-01] MEDS: Lactobacillus Acidophilus CAP 1 CAP PO (20:13)
[2021-09-01] MEDS: Senna TAB 2 TAB PO (20:13)
[2021-09-01] MEDS: Magnesium Chloride 64 MG TABCR 128 MG PO (20:13)
[2021-09-01] MEDS: diazePAM 2 MG TAB PO (20:13)
[2021-09-01] MEDS: Mirtazapine 15 MG TAB 7.5 MG PO (22:05)
--- NOTE | 2021-09-02 08:13 | W.PALLCONSUL ---
Date of service: 09/02/21 Time of Service: 08:13 History of Present Illness History of Present Illness Chief Complaint: UTI Narrative: From H and P: History of Present Illness Chief Complaint: suprapubic catheter plugged Narrative: This is a 56-year-old gentleman, complex past medical history that includes C6-C7 fracture resulting in quadriplegia and spinal fusion, C. difficile, neurogenic bowel s/p colostomy, stage IV decubitus ulcers bilateral buttocks with osteomyelitis, anemia, depression, neurogenic bladder with suprapubic catheter, DVT, who presenting today to the ED reporting diaphoresis, and suprapubic catheter not draining properly. The patient finished Bactrim and Augmentin on Thursday for his osteomyelitis. Patient lives at home with his family and does have home health coming in for his medical needs. Patient reports a very similar presentation previously when his suprapubic catheter has been malfunctioning. Patient states that after he was moved around a bit he noticed some urine leaking from around the suprapubic catheter and states that he feels less sweaty and overall better now that there is less urine in his bladder. Interim Hx: Favio is a 56-year-old male status post C6-7 cervical fracture resulting in quadriplegia. I have followed him since January when he came to [facility]. He was living in his ex-girlfriend's home. Developed problems with his catheter and ended up with urinary retention and a UTI. He came to the hospital received antibiotics. He states that he is already feeling much better. Although his living arrangements are not the best he does plan to return there. I have visited his home and he seems to be getting good care as well as outside diversions such as drives and his handicapped accessible van etc. Unfortunately he states that there is tension between Nicki and some of his family members so he has not been getting much in the way of visitors. Consults Consult date: 09/02/21 Assessment and Plan Assessment and plan (1) Sepsis: Status: Acute (2) Chronic recurrent multifocal osteomyelitis: Status: Chronic (3) Palliative care encounter: Status: Acute Assessment and plan: Sepsis from UTI?his catheter now has been replaced and is functioning well. He is on ceftriaxone. He is responding very well Sacral osteomyelitis?he does have a appointment at [facility] for his wounds later this week He does plan to go back to the [facility] to see if there is procedures that can help with his upper extremity movement He is much better than what he was about 2 weeks ago regarding returning to Nicki's home. He is coming to [employer] with the choices he has in his present life I have spent more than 50% of time in counseling with this patient. Review of Systems Narrative: He states today he is feeling much better he does not feel nearly as wiped out as he had. He does not feel the agitation that he did with he had the urinary retention. No chest pain no shortness of breath. More movement in his upper extremities. [facility] Medical History Acute embolism and thrombosis of deep vein of right lower extremity Anxiety disorder Aspiration into airway C. difficile colitis Constipation Constipation due to neurogenic bowel Decubitus skin ulcer Decubitus ulcer of buttock, stage 4 Dislocation of C6/C7 cervical vertebrae DNR (do not resuscitate) DVT (deep venous thrombosis) DVT prophylaxis Encounter for wound care Fall down embankment Fusion of spine H/O deep venous thrombosis Hypokalemia Hypotension Ileus Iron deficiency anemia Large bowel obstruction Major depressive disorder Malnutrition following gastrointestinal surgery Neurogenic bladder Neurogenic bowel Open wound of abdominal wall Palliative care patient Physician orders for life-sustaining treatment (POLST) form indicates patient wish for [id number]-yuylkxtlqgk status Quadriplegia Right arm pain Visit for wound check Surgical History S/P colostomy Social History Smoking/Tobacco Use Status: Never Smoking risk assessment performed?: Yes Alcohol Intake: former Drug use: Occasionally Substance use type: marijuana Do you feel safe at home: Yes Do you feel safe in your relationship?: Yes Exam Narrative Exam Narrative: Lying in bed. He looks clean shaven and more tanned than when I last saw him. His mood was better today. His heart was regular without murmurs. No rales to the extent that I was able to hear. Abdomen seems soft Results Last Vital Signs Temp 98.8 F 09/01/21 23:51 Pulse 83 09/01/21 23:51 Resp 16 09/01/21 23:51 BP 102/71 09/01/21 23:51 Pulse Ox 96 09/01/21 23:51 Labs Result diagrams: 09/01/21 12:55 09/01/21 12:55 Labs: Laboratory Results - last 24 hr 09/01/21 09/01/21 09/01/21 12:55 12:55 12:55 WBC 12.98 H RBC 5.16 Hgb 14.8 Hct 46.3 MCV 89.7 MCH 28.7 MCHC 32.0 RDW 12.7 Plt Count 286 MPV 9.4 Immature Gran % 0.4 Neutrophils % 78.4 Lymphocytes % 14.4 Monocytes % 4.6 Eosinophils % 1.9 Basophils % 0.3 Nucleated RBC % 0 Absolute Neutrophils 10.18 H Absolute Lymphocytes 1.87 Absolute Monocytes 0.60 Absolute Eosinophils 0.25 Absolute Basophils 0.04 ESR VBG Lactate Sodium 144 Potassium 3.7 Chloride 103 Carbon Dioxide 28.2 Anion Gap 12.8 H BUN 25 H Creatinine 1.0 Estimated GFR/1.73 m2 >= 60.00 Glucose 134 H Calcium 10.2 H Total Bilirubin 0.2 AST 19 ALT 46 Alkaline Phosphatase 117 H C-Reactive Protein 3.35 H Total Protein 8.8 H Albumin 3.9 Procalcitonin Urine Color Urine Clarity Urine pH Ur Specific [place] Urine Protein Urine Ketones Urine Blood Urine Nitrite Urine Bilirubin Urine Urobilinogen Ur Leukocyte Esterase Urine RBC Urine WBC Ur Epithelial Cells Urine Crystals Urine Bacteria Urine Casts Urine Mucus Ur Culture Indicated? Urine Glucose COVID-19 Source SARS-CoV-2 (PCR) 09/01/21 09/01/21 09/01/21 12:55 12:55 13:05 WBC RBC Hgb Hct MCV MCH MCHC RDW Plt Count MPV Immature Gran % Neutrophils % Lymphocytes % Monocytes % Eosinophils % Basophils % Nucleated RBC % Absolute Neutrophils Absolute Lymphocytes Absolute Monocytes Absolute Eosinophils Absolute Basophils ESR 28 H VBG Lactate Sodium Potassium Chloride Carbon Dioxide Anion Gap BUN Creatinine Estimated GFR/1.73 m2 Glucose Calcium Total Bilirubin AST ALT Alkaline Phosphatase C-Reactive Protein Total Protein Albumin Procalcitonin < 0.1 Urine Color Yellow Urine Clarity Cloudy Urine pH 5.5 Ur Specific [place] 1.020 Urine Protein 30 H Urine Ketones Negative Urine Blood Moderate H Urine Nitrite Negative Urine Bilirubin Negative Urine Urobilinogen 0.2 Ur Leukocyte Esterase Moderate H Urine RBC >50 H Urine WBC >50 H Ur Epithelial Cells Negative Urine Crystals Negative Urine Bacteria Many Urine Casts Negative Urine Mucus Negative Ur Culture Indicated? Yes Urine Glucose Negative COVID-19 Source SARS-CoV-2 (PCR) 09/01/21 09/01/21 13:20 13:55 WBC RBC Hgb Hct MCV MCH MCHC RDW Plt Count MPV Immature Gran % Neutrophils % Lymphocytes % Monocytes % Eosinophils % Basophils % Nucleated RBC % Absolute Neutrophils Absolute Lymphocytes Absolute Monocytes Absolute Eosinophils Absolute Basophils ESR VBG Lactate 1.7 H Sodium Potassium Chloride Carbon Dioxide Anion Gap BUN Creatinine Estimated GFR/1.73 m2 Glucose Calcium Total Bilirubin AST ALT Alkaline Phosphatase C-Reactive Protein Total Protein Albumin Procalcitonin Urine Color Urine Clarity Urine pH Ur Specific [place] Urine Protein Urine Ketones Urine Blood Urine Nitrite Urine Bilirubin Urine Urobilinogen Ur Leukocyte Esterase Urine RBC Urine WBC Ur Epithelial Cells Urine Crystals Urine Bacteria Urine Casts Urine Mucus Ur Culture Indicated? Urine Glucose COVID-19 Source Nasal/Nares SARS-CoV-2 (PCR) Negative
[2021-09-02] MEDS: Cholecalciferol (Vitamin D3) 1,000 UNIT TAB 1000 UNITS PO (08:14)
[2021-09-02] MEDS: Magnesium Chloride 64 MG TABCR 128 MG PO ×2 (08:15→20:09)
[2021-09-02] MEDS: Senna TAB 2 TAB PO ×2 (08:15→20:08)
[2021-09-02] MEDS: Pantoprazole 40 MG TABCR PO (08:15)
[2021-09-02] MEDS: Lactobacillus Acidophilus CAP 1 CAP PO ×3 (08:16→20:08)
[2021-09-02] MEDS: diazePAM 2 MG TAB PO ×3 (08:16→20:08)
[2021-09-02] MEDS: DULoxetine 30 MG CAP PO (08:16)
[2021-09-02] MEDS: Multivitamin TAB 1 TAB PO (08:16)
[2021-09-02] MEDS: Docusate Sodium 100 MG CAP PO ×3 (08:16→20:09)
[2021-09-02] MEDS: Ascorbic Acid 500 MG TAB PO ×2 (08:16→20:08)
[2021-09-02 08:45] VITALS: BP 96/64; PULSE 93; RESP 16; TEMP 36.6; O2SAT 95
[2021-09-02] MEDS: Polyethylene Glycol 3350 17 GM PACKET PO (09:10)
--- NOTE | 2021-09-02 09:16 | INITIAL_ITS ---
- If Service Date Differs Date of service: 09/02/21 Time of Service: 09:16 Care Management Initial Assess REASON FOR HOSPITALIZATION:: UTI PAST MEDICAL HISTORY/PAST SURGICAL HISTORY:: Medical History . Acute embolism and thrombosis of deep vein of right lower extremity. Anxiety disorder. Aspiration into airway. C. difficile colitis. Constipation. Constipation due to neurogenic bowel. Decubitus skin ulcer. Decubitus ulcer of buttock, stage 4. Dislocation of C6/C7 cervical vertebrae. DNR (do not resuscitate). DVT (deep venous thrombosis). DVT prophylaxis. Encounter for wound care. Fall down embankment. Fusion of spine. H/O deep venous thrombosis. Hypokalemia. Hypotension. Ileus. Iron deficiency anemia. Large bowel obstruction. Major depressive disorder. Malnutrition following gastrointestinal surgery. Neurogenic bladder. Neurogenic bowel. Open wound of abdominal wall. Palliative care patient. Physician orders for life-sustaining treatment (POLST) form indicates patient wish for [id number] status. Quadriplegia. Right arm pain. Visit for wound check. Surgical History . S/P colostomy PREVIOUS FUNCTIONAL STATUS/SOCIAL/FAMILY SUPPORTS:: Favio lives in a single family home in [place], [place] with his friend and caregiver, Nicki. Nicki's mother also resides in the home and Nicki cares for her as well. Favio has 2 children, a son and a daughter that are involved in his life. Favio is a quadriplegic and is on disability. In addition to Nicki, Favio has FASTENER SEWING MACHINE OPERATOR services 3 times a week as well as nursing and PT through [facility]. He also has a paid caregiver 2 times a week. CURRENT FUNCTIONAL STATUS:: Favio was sitting up in bed when CM met with him. He engaged readily with CM as CM was well known to him from his previous 5 month admission. Favio stated that things have been going pretty well at home. He and Nicki have hired an GLOBE CLEANER to stay with him the 2 days a week that Nicki needs to work in her office and he has wringer machine operator through home health that come three times a week. Favio shared that he has been getting up every day and uses his electric wheelchair independently. On good days he goes outside on the porch and enjoys the fresh air. Favio also informed CM that he has appointments at [facility] on with both Infectious Diseases and the Wound Center. He will also be going to [place] again to complete the evaluation for surgery to improve the function of his hands and fingers.He stated that he has had visitors and his son, in particular, visits fairly often and helps to get him out of bed. Favio admitted that there has been some stress between him and Nicki which was anticipated with the level of care he requires. He mentioned that he has not been able to see his mother. CM suggested that he visit at her house and he said that his Dad is looking into the feasibility of adding a ramp to facilitate such visits. ADVANCE DIRECTIVES:: COLST on file - DNR/DNI Has patient been provided with info about the portal/API?: Yes Did the patient sign up for the portal?: Yes (previously) CODE STATUS:: DNR/DNI INSURANCE COVERAGE / FINANCIAL ISSUES:: BC BS CURRENT HOME/COMMUNITY SERVICES/EQUIPMENT:: electric hospital bed, electric wheelchair, christa lift, HH services including RN, PT, OT and ICE SCULPTOR. Private caregiver 2X/week. PRIMARY CARE PHYSICIAN:: Rayna Pino POTENTIAL DISCHARGE NEEDS:: Follow up with PCP and community providers PATIENT/FAMILY EDUCATION NEEDS:: Review of discharge instructions including medications, limitations, activity, follow up plan, Ask Me Three TRANSPORTATION:: via wheelchair van with Nicki PLAN:: Favio will likely be discharged home with a resumption of HH services. He will follow up with his community providers, including Wound Center at [facility] and will transport james Caceres via private w/c van. CM will continue to support Do obrien and to assess for additional discharge needs.
[2021-09-02 10:26] VITALS: BP 102/72
[2021-09-02] MEDS: amLODIPine 10 MG TAB PO (10:29)
--- NOTE | 2021-09-02 13:48 | PGE_ITS ---
Date of Service Date of service: 09/02/21 Time of Service: 13:48 Assessment and Plan Assessment and plan (1) UTI (urinary tract infection): Status: Acute Assessment and plan: ceftriaxone 2 gm IVPB day 2 started based on last culture cultures pending Qualifiers: Encounter type: initial encounter Indwelling urinary catheter type: indwelling urethral catheter Urinary tract infection type: catheter-associated UTI Qualified Code(s): T83.511A - Infection and inflammatory reaction due to indwelling urethral catheter, initial encounter; N39.0 - Urinary tract infection, site not specified (2) Indwelling catheter replaced: Status: Acute Assessment and plan: suprapubic catheter plugged, replaced in the ED (3) Chronic recurrent multifocal osteomyelitis: Status: Chronic Assessment and plan: continue routine wound care per outpatient team [place] [facility] [place] (4) Discharge planning issues: Status: Acute Assessment and plan: discharge to home with resumption of services in 1-2 days if he remains medically stable. discussed with Dr Olson Subjective Subjective Patient reports: no new complaints, tolerating liquids well, tolerating a regular diet and afebrile Exam Const General: cooperative, no acute distress and ill appearing chronically Nutritional Appearance: average body habitus Orientation: alert, awake and oriented x3 HENMT Head: normal to inspection, normocephalic and atraumatic Resp Effort & Inspection: no cough Cardio Rate: regular rate Rhythm: regular rhythm GI Inspection: other (suprapubic catheter intact, insertion site clear, colostomy bag intact,) Palpation: soft and other (soft brown stool in colostomy) Skin Lesions: lesion noted Neuro General: patient alert, patient awake and patient oriented x3 Cognition: normal cognition Extrem General: edema Laterality: bilateral and muscle atrophy (parapelgic) of the right lower extremity and of the left lower extremity Objective Last Vital Signs Temp 36.6 C 09/02/21 08:45 Pulse 93 H 09/02/21 08:45 Resp 16 09/02/21 08:45 BP 102/72 09/02/21 10:26 Pulse Ox 95 09/02/21 08:45 Laboratory Results - last 24 hr 09/01/21 09/01/21 09/01/21 12:55 13:20 13:55 VBG Lactate 1.7 H Procalcitonin < 0.1 SARS-CoV-2 (PCR) Negative
[2021-09-02] MEDS: cefTRIAXone 2 GM/50 ML BAG IVPB (14:13)
[2021-09-02 15:36] VITALS: BP 105/70; PULSE 92; RESP 16; TEMP 36.8; O2SAT 98
[2021-09-02] MEDS: Normal Saline Flush 10 ML SYR IVP (20:08)
[2021-09-02] MEDS: Mirtazapine 15 MG TAB 7.5 MG PO (21:16)
[2021-09-02 23:42] VITALS: BP 118/76; PULSE 91; RESP 16; TEMP 36.8; O2SAT 95
[2021-09-03 06:00] VITALS: BP 147/89; PULSE 72; RESP 16; TEMP 36.8; O2SAT 100
[2021-09-03 07:55] VITALS: BP 114/73; PULSE 69; RESP 18; TEMP 36.4; O2SAT 96
[2021-09-03] MEDS: Pantoprazole 40 MG TABCR PO (07:58)
[2021-09-03] MEDS: amLODIPine 10 MG TAB PO (07:59)
[2021-09-03] MEDS: diazePAM 2 MG TAB PO ×3 (08:00→20:57)
[2021-09-03] MEDS: Ascorbic Acid 500 MG TAB PO ×2 (08:00→20:58)
[2021-09-03] MEDS: Cholecalciferol (Vitamin D3) 1,000 UNIT TAB 1000 UNITS PO (08:00)
[2021-09-03] MEDS: Lactobacillus Acidophilus CAP 1 CAP PO ×3 (08:01→20:58)
[2021-09-03] MEDS: Docusate Sodium 100 MG CAP PO ×3 (08:01→20:58)
[2021-09-03] MEDS: Magnesium Chloride 64 MG TABCR 128 MG PO ×2 (08:01→20:57)
[2021-09-03] MEDS: DULoxetine 30 MG CAP PO (08:01)
[2021-09-03] MEDS: Multivitamin TAB 1 TAB PO (08:02)
[2021-09-03] MEDS: Senna TAB 2 TAB PO ×2 (08:02→20:57)
[2021-09-03] MEDS: Polyethylene Glycol 3350 17 GM PACKET PO (08:02)
--- NOTE | 2021-09-03 13:31 | PGE_ITS ---
Date of Service Date of service: 09/03/21 Time of Service: 13:32 Assessment and Plan Assessment and plan (1) Fungemia: Status: Acute Assessment and plan: one blood culture tube positive, but also with yeast in his urine. will repeat blood cultures today and start diflucan. (2) UTI (urinary tract infection): Status: Acute Assessment and plan: culture growing yeast diflucan 800 mg today, then 400 mg daily Qualifiers: Encounter type: initial encounter Indwelling urinary catheter type: indwelling urethral catheter Urinary tract infection type: catheter-associated UTI Qualified Code(s): T83.511A - Infection and inflammatory reaction due to indwelling urethral catheter, initial encounter; N39.0 - Urinary tract infection, site not specified (3) Indwelling catheter replaced: Status: Acute Assessment and plan: suprapubic catheter plugged, replaced in the ED (4) Chronic recurrent multifocal osteomyelitis: Status: Chronic Assessment and plan: continue routine wound care per outpatient team has appointment at [facility] wound care (5) Discharge planning issues: Status: Acute Assessment and plan: discharge to home with resumption of services in 1-2 days if he remains medically stable. discussed with Dr Olson Subjective Subjective Patient reports: no new complaints, feels better, tolerating liquids well and afebrile Interval history since last seen: pereyra catheter draining without issue. Exam Const General: cooperative, no acute distress and ill appearing chronically Nutritional Appearance: average body habitus Orientation: alert, awake and oriented x3 HENMT Head: normal to inspection, normocephalic and atraumatic Resp Effort & Inspection: no cough Cardio Rate: regular rate Rhythm: regular rhythm GI Inspection: other (suprapubic catheter intact, insertion site clear, colostomy bag intact,) Palpation: soft and other (soft brown stool in colostomy) Skin Lesions: lesion noted Neuro General: patient alert, patient awake and patient oriented x3 Cognition: normal cognition Extrem General: edema Laterality: bilateral and muscle atrophy (parapelgic) of the right lower extremity and of the left lower extremity Objective Last Vital Signs Temp 36.4 C L 09/03/21 07:55 Pulse 69 09/03/21 07:55 Resp 18 09/03/21 07:55 BP 114/73 09/03/21 07:55 Pulse Ox 96 09/03/21 07:55
[2021-09-03] MEDS: Normal Saline Flush 10 ML SYR IVP ×3 (13:34→20:57)
[2021-09-03] MEDS: cefTRIAXone 2 GM/50 ML BAG IVPB (13:36)
--- NOTE | 2021-09-03 14:34 | CHAPLAIN ---
Favio is familiar to many of the staff members as he was a patient here for five months not long ago. He is back to deal with issues with his catheter. He was concerned this morning that an email from Nicki might indicate that he's not welcome to go back there. Nicki, who shares two children with Favio, but is not in a relationship with her, agreed to take Favio home and provide the needed care, along with paid care givers and home health support.
[2021-09-03] MEDS: FLUCONAZOLE 200 MG/100 ML BAG 100 MG IVPB ×4 (15:25→19:02)
[2021-09-03 15:33] VITALS: BP 109/70; PULSE 88; TEMP 37.3; O2SAT 96
--- NOTE | 2021-09-03 19:39 | CMPROGNOTE_ITS ---
- If Service Date Differs Date of service: 09/03/21 Time of Service: 19:39 Care Management Progress Note S/O: Favio was sitting up in his bed watching a movie when CM met with him. He reported that per provider, he will likely remain acute for a few days. He stated that the mother of his children does not want him to return home. CM stated that on his previous admission he was not accepted at any facilities, but that options could be explored if he cannot return home. CM will continue to f zohreh. A: Bruce is a 56 year old male admitted to [facility] on 09/01/21 with a UTI. P: Favio will likely be discharged home with a resumption of services. He will follow up with his community providers, including [facility] and will transport with [facility] via private w/c van. CM will continue to support Favio and to assess for additional discharge needs.
[2021-09-03 20:45] VITALS: BP 117/76; PULSE 92; RESP 19; TEMP 37.7; O2SAT 95
[2021-09-03] MEDS: Mirtazapine 15 MG TAB 7.5 MG PO (21:01)
[2021-09-03 23:35] VITALS: BP 124/81; PULSE 95; RESP 16; TEMP 36.8; O2SAT 93
[2021-09-04 07:35] VITALS: BP 109/69; PULSE 91; RESP 18; TEMP 37.4; O2SAT 91
[2021-09-04] MEDS: Pantoprazole 40 MG TABCR PO (07:41)
[2021-09-04] MEDS: Polyethylene Glycol 3350 17 GM PACKET PO (07:41)
[2021-09-04] MEDS: diazePAM 2 MG TAB PO ×3 (07:42→19:56)
[2021-09-04] MEDS: amLODIPine 10 MG TAB PO (07:42)
[2021-09-04] MEDS: Lactobacillus Acidophilus CAP 1 CAP PO ×3 (07:42→19:56)
[2021-09-04] MEDS: Senna TAB 2 TAB PO ×2 (07:42→19:56)
[2021-09-04] MEDS: Docusate Sodium 100 MG CAP PO ×3 (07:42→19:56)
[2021-09-04] MEDS: Ascorbic Acid 500 MG TAB PO ×2 (07:42→19:57)
[2021-09-04] MEDS: DULoxetine 30 MG CAP PO (07:42)
[2021-09-04] MEDS: Multivitamin TAB 1 TAB PO (07:42)
[2021-09-04] MEDS: Magnesium Chloride 64 MG TABCR 128 MG PO ×2 (07:42→19:56)
[2021-09-04] MEDS: Cholecalciferol (Vitamin D3) 1,000 UNIT TAB 1000 UNITS PO (07:42)
--- NOTE | 2021-09-04 09:27 | CMPROGNOTE_ITS ---
- If Service Date Differs Date of service: 09/04/21 Time of Service: 09:27 Care Management Progress Note S/O: Favio was lying in bed when CM met with him. He stated that Nicki is no longer willing to take care of him and that he is looking into a possible AFC home. As his intermediate Medicaid is still not approved, it is unlikely that he will be able to transfer into a home at this time. CM did send referrals to [facility] in [place] and to [facility] in [place]. Those facilities have received special funding form the [facility] to accept hospital transfers to free up acute care beds and may be more flexible about accepting a patient with LTM pending, but not finalized. Favio's blood cultures and urine culture have both grown yeast. It is likely that he will need IV anti- fungal treatment for a while, so discharge is not imminent. A: Bruce is a 56 year old male admitted to [facility] on 09/01/21 with a UTI. P: As Favio's caregiver Nicki is no longing willing to care for him, Favio will likely need placement in a SNF. 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 Referrals have been sent to [facility] in [place] and [facility] as these facilities have received special state funding. It is possible that they may have more flexibility regarding payer source. Since Favio is growing yeast in blood and urine, he will likely remain acute for some time. CM will continue to support L arry and to assess for additional discharge needs.
--- NOTE | 2021-09-04 13:27 | W.NUTRFU ---
Date of service: 09/04/21 Time of Service: 13:27 Nutrition Note NOTE: Assessment: Favio is taking in excellent PO on a regular diet. He gets [place] Instant Breakfast in between meals. His weight on 09/01 was 90.8 kg. This weight is fairly stable over the past few months with a mild upward trend. His BMI is 25.7 kg/m2 c/w mild overweight. Nutrition Diagnosis: Increased nutritional needs for wound healing Intervention: Getting a high calorie, high protein diet. Would also recommend 1 oz. liquid protein to be ordered three times per day. Monitoring and Evaluation: Will continue to monitor his nutritional status. Will evaluate nutrition care plan ongoing and adjust as needed. Time Spent in Nutritional Counseling and Treatment: 0
[2021-09-04] MEDS: Normal Saline Flush 10 ML SYR IVP ×2 (14:10→19:57)
--- NOTE | 2021-09-04 14:46 | W.PM.PROGNOT ---
Date of Service Date of service: 09/04/21 Time of Service: 14:46 Assessment and Plan Assessment and plan (1) Fungemia: Status: Acute Assessment and plan: one blood culture tube positive, but also with yeast in his urine. repeat blood cultures pending day 2 diflucan. echo pending. (2) UTI (urinary tract infection): Status: Acute Assessment and plan: culture growing yeast diflucan 800 mg today, then 400 mg daily Qualifiers: Urinary tract infection type: catheter-associated UTI Indwelling urinary catheter type: indwelling urethral catheter Encounter type: initial encounter Qualified Code(s): T83.511A - Infection and inflammatory reaction due to indwelling urethral catheter, initial encounter; N39.0 - Urinary tract infection, site not specified (3) Indwelling catheter replaced: Status: Resolved Assessment and plan: suprapubic catheter plugged, replaced in the ED (4) Chronic recurrent multifocal osteomyelitis: Status: Chronic Assessment and plan: continue routine wound care per outpatient team followed by [facility] [place] care (5) Discharge planning issues: Status: Acute Assessment and plan: case management following. will need swing level stay for IV antibiotics and nursing care for wounds. discussed with Dr Olson Subjective Subjective Patient reports: no new complaints, feels better, tolerating liquids well, tolerating a regular diet and afebrile Interval history since last seen: pereyra catheter draining without issue. Exam Const General: cooperative, no acute distress and ill appearing chronically Nutritional Appearance: average body habitus Orientation: alert, awake and oriented x3 HENMT Head: normal to inspection, normocephalic and atraumatic Resp Effort & Inspection: no cough Cardio Rate: regular rate Rhythm: regular rhythm GI Inspection: other (suprapubic catheter intact, insertion site clear, colostomy bag intact,) Palpation: soft and other (soft brown stool in colostomy) Skin Lesions: lesion noted Neuro General: patient alert, patient awake and patient oriented x3 Cognition: normal cognition Extrem General: edema Laterality: bilateral and muscle atrophy (parapelgic) of the right lower extremity and of the left lower extremity Objective Last Vital Signs Temp 37.4 C 09/04/21 07:35 Pulse 91 H 09/04/21 07:35 Resp 18 09/04/21 07:35 BP 109/69 09/04/21 07:35 Pulse Ox 91 L 09/04/21 07:35
[2021-09-04 16:06] VITALS: TEMP 38.9
[2021-09-04] MEDS: Acetaminophen 325 MG TAB 650 MG PO ×2 (16:06→19:55)
[2021-09-04] MEDS: cefTRIAXone 2 GM/50 ML BAG IVPB (16:07)
[2021-09-04 16:08] VITALS: BP 114/73; PULSE 96; RESP 16; TEMP 39.4; O2SAT 91
[2021-09-04 18:08] VITALS: TEMP 39.4
[2021-09-04 19:39] LABS: Lactate 0.7 mmol/L (0.6-1.4)
[2021-09-04 19:40] LABS: HCT 32.5 % (40.0-50.0); HGB 10.6 g/dL (13.5-17.5); MCHC 32.6 % (32.0-36.0); MCV 88.8 fL (80-95); MPV 9.8 fL (8.0-11.0); Platelet Count 190 10^3/uL (130-400); RBC 3.66 10^6/uL (4.36-5.78); RDW 12.8 % (11.8-14.1); RDW-SD 41.5 fL; WBC 5.19 10^3/uL (4.4-10.8)
[2021-09-04 19:55] VITALS: TEMP 38.4
[2021-09-04 21:25] LABS: Procalcitonin < 0.1 ng/mL
[2021-09-04] MEDS: Mirtazapine 15 MG TAB 7.5 MG PO (21:49)
[2021-09-04 22:06] VITALS: TEMP 37.9; O2SAT 94
[2021-09-05] VITALS (7 sets, daily range): BP systolic 92–158; BP diastolic 50–79; PULSE 78–89; RESP 16–18; TEMP 37.1–39; O2SAT 93–95
[2021-09-05] MEDS: Acetaminophen 325 MG TAB 650 MG PO ×2 (07:59→14:47)
[2021-09-05] MEDS: Pantoprazole 40 MG TABCR PO (08:25)
[2021-09-05] MEDS: Magnesium Chloride 64 MG TABCR 128 MG PO ×2 (08:34→20:48)
[2021-09-05] MEDS: Senna TAB 2 TAB PO ×2 (08:34→20:48)
[2021-09-05] MEDS: Polyethylene Glycol 3350 17 GM PACKET PO (08:34)
[2021-09-05] MEDS: Cholecalciferol (Vitamin D3) 1,000 UNIT TAB 1000 UNITS PO (08:34)
[2021-09-05] MEDS: amLODIPine 10 MG TAB PO (08:34)
[2021-09-05] MEDS: Docusate Sodium 100 MG CAP PO ×3 (08:35→20:48)
[2021-09-05] MEDS: Multivitamin TAB 1 TAB PO (08:35)
[2021-09-05] MEDS: Lactobacillus Acidophilus CAP 1 CAP PO ×3 (08:35→20:48)
[2021-09-05] MEDS: Ascorbic Acid 500 MG TAB PO ×2 (08:35→20:48)
[2021-09-05] MEDS: diazePAM 2 MG TAB PO ×3 (08:35→20:47)
[2021-09-05] MEDS: DULoxetine 30 MG CAP PO (08:36)
[2021-09-05] MEDS: Normal Saline Flush 10 ML SYR IVP ×4 (08:42→20:48)
--- NOTE | 2021-09-05 08:44 | CMPROGNOTE_ITS ---
- If Service Date Differs Date of service: 09/05/21 Time of Service: 08:44 Care Management Progress Note S/O: Favio was lying in bed when CM met with him. He stated that he is doing ok. He appeared depressed and did not offer much conversation although he did answer questions when asked. Favio has been febrile since last evening with temperatures ranging from 38-39 degrees C. A fever workup is in progress; he has had a chest Xray, repeat blood cultures, wound cultures and a repeat urine c ulture. Favio denies having any new symptoms at this time, although he continues to have a cough. The chest Xray indicated that he has a probable infiltrate in his right lung base. A: Bruce is a 56 year old male admitted to [facility] on 09/01/21 with a UTI. P: As Favio's caregiver Nicki is no longing willing to care for him, Favio will likely need placement in a SNF. His alf Medicaid application has still not been approved so this will likely be a barrier. Referrals have been sent to [facility] and [facility] as these facilities have received special state funding. It is possible that they may have more flexibility regarding payer source. Since Favio is growing yeast in blood and urine, he will likely remain acute for some time. CM will continue to support Favio and to assess for additional discharge needs.
--- NOTE | 2021-09-05 11:25 | W.PM.PROGNOT ---
Date of Service Date of service: 09/05/21 Time of Service: 11:25 Assessment and Plan Assessment and plan (1) Fever: Status: Acute Assessment and plan: max temp 39.4 overnight while on ceftriaxone and diflucan (for yeast in blood and urine). repeat blood cultures have been negative. urine with no bacterial growth seen. procal < 0.1, lactate normal vitals normal no resp or abd c/o. suspect infection in wounds so will culture. started dapto based on previous culture reports. repeat blood cultures, urine and get CXR to r/o other source. (2) Fungemia: Status: Acute Assessment and plan: one blood culture tube positive, but also with yeast in his urine. repeat blood cultures negative day 3 diflucan. echo with no evidence of vegetation (3) UTI (urinary tract infection): Status: Acute Assessment and plan: culture growing yeast diflucan IV day 3 Qualifiers: Encounter type: initial encounter Indwelling urinary catheter type: indwelling urethral catheter Urinary tract infection type: catheter-associated UTI Qualified Code(s): T83.511A - Infection and inflammatory reaction due to indwelling urethral catheter, initial encounter; N39.0 - Urinary tract infection, site not specified (4) Indwelling catheter replaced: Status: Resolved Assessment and plan: suprapubic catheter plugged, replaced in the ED ceftriaxone 2 gm IV for 3 days and still running fevers, no bacterial growth. urine culture grew yeast only (5) Chronic recurrent multifocal osteomyelitis: Status: Chronic Assessment and plan: continue routine wound care per outpatient team followed by [facility] wound care (6) Discharge planning issues: Status: Acute Assessment and plan: case management following. will need swing level stay for IV antibiotics and nursing care for wounds. discussed with Dr Olson Subjective Subjective Patient reports: no new complaints and fever Interval history since last seen: max temp overnight 39.4, no respiratory c/o, no abdominal pain or vomiting. colostomy functioning with baseline output. suprapubic catheter draining well. Exam Const General: cooperative, no acute distress and ill appearing chronically Nutritional Appearance: average body habitus Orientation: alert, awake and oriented x3 HENMT Head: normal to inspection, normocephalic and atraumatic Resp Effort & Inspection: no cough Cardio Rate: regular rate Rhythm: regular rhythm GI Inspection: other (suprapubic catheter intact, insertion site clear, colostomy bag intact,) Palpation: soft and other (soft brown stool in colostomy) Skin Lesions: lesion noted Neuro General: patient alert, patient awake and patient oriented x3 Cognition: normal cognition Extrem General: edema Laterality: bilateral and muscle atrophy (parapelgic) of the right lower extremity and of the left lower extremity Objective Last Vital Signs Temp 38.3 C H 09/05/21 08:42 Pulse 89 09/05/21 08:00 Resp 16 09/05/21 08:00 BP 137/79 09/05/21 08:00 Pulse Ox 93 09/05/21 08:00 Laboratory Results - last 24 hr 09/04/21 09/04/21 09/04/21 19:32 19:32 19:32 WBC 5.19 RBC 3.66 L Hgb 10.6 L Hct 32.5 L MCV 88.8 MCH 29.0 MCHC 32.6 RDW 12.8 Plt Count 190 MPV 9.8 VBG Lactate 0.7 Procalcitonin < 0.1
[2021-09-05 11:31] LABS: Abs Immature Grans 0.03 10^3/uL (0.0-0.06); Absolute Basophil Count 0.01 10^3/uL (0.0-0.2); Absolute Eosinophil Count 0.01 10^3/uL (0.0-0.7); Absolute Monocyte Count 0.47 10^3/uL (0.1-0.8); Absolute Neutrophil Count 4.14 10^3/uL (1.2-6.7); Basophils % 0.2; Eosinophils % 0.2; HGB 10.3 g/dL (13.5-17.5); Immature Grans % 0.5; Lymphocytes % 17.7; MCH 28.9 pg (27.0-33.0); MCHC 32.2 % (32.0-36.0); MCV 89.6 fL (80-95); Monocytes % 8.3; Neutrophils % 73.1; Nucleated RBC 0 %; Platelet Count 201 10^3/uL (130-400); RBC 3.57 10^6/uL (4.36-5.78); RDW 12.9 % (11.8-14.1); RDW-SD 42.4 fL; WBC 5.66 10^3/uL (4.4-10.8)
[2021-09-05 11:37] LABS: Anion Gap 9.2 mmol/L (3-11); BUN 15 mg/dL (7-18); CO2 24.8 mmol/L (21.0-32.0); CREATININE 0.7 mg/dL (0.70-1.30); Calcium 8.6 mg/dL (8.5-10.1); Chloride 104 mmol/L (98-107); Glucose 103 mg/dL (74-106); Potassium 3.5 mmol/L (3.5-5.1); Sodium 138 mmol/L (136-145)
--- NOTE | 2021-09-05 11:47 | PHA.REVIEW ---
Pharmacy Admission Review - Admission Clinical Review (Last Reviewed 09/01/21 @ 13:01 by KAN Randolph) Fever (Acute) Fungemia (Acute) Sepsis (Acute) Acute UTI (Acute) Palliative care encounter (Acute) UTI (urinary tract infection) (Acute) Discharge planning issues (Acute) No Known Allergies Allergy (Unverified 09/01/21 12:15) Resuscitation Status DNR/DNI Height 6 ft 2 in Weight 90.718 kg - Renal Dosing Renal Dosing: BUN 15 mg/dL (7-18) 09/05/21 11:11 Creatinine 0.7 mg/dL (0.70-1.30) 09/05/21 11:11 Medications needing adjustments: Reviewed - Anticoagulation Anticoagulation: Hgb 10.3 g/dL (13.5-17.5) L 09/05/21 11:11 Hct 32.0 % (40.0-50.0) L 09/05/21 11:11 Plt Count 201 10^3/uL (130-400) 09/05/21 11:11 Creatinine 0.7 mg/dL (0.70-1.30) 09/05/21 11:11 DVT Prophylaxis: Intervened Medications: Enoxaparin - Opiate Usage Evaluate Pain Scale/Pains Meds: Reviewed - Relevant Labs ESR 28 mm/hr (0-20) H 09/01/21 12:55 Sodium 138 mmol/L (136-145) 09/05/21 11:11 Potassium 3.5 mmol/L (3.5-5.1) 09/05/21 11:11 Chloride 104 mmol/L (98-107) 09/05/21 11:11 C-Reactive Protein 3.35 mg/dL (0.0-0.3) H 09/01/21 12:55 Electrolytes, C-Reactive P, ESR: Reviewed - DM Control DM Control: Glucose 103 mg/dL (74-106) 09/05/21 11:11 Insulin Dosing: Reviewed - Heart Failure/[place] EF%, JAYLON's, B-Blockers, Diuretics: Reviewed - BP Control BP Control: Blood Pressure 137/79 If elevated: Reviewed - Qtc Review If Elevated: Reviewed - IV to PO Switch IV Medications: Reviewed - Home Meds Home Med List reviewed: Intervened Relevent Home Meds Not ordered & why?: confirmed most recent meds filled, all ordered, duloxetine was recently increased to 60mg by PCP, notified MD to inc order - Current meds Current Medication Order Review: Reviewed (dapto was added to regimen today due to fever ON, blood cultures were redone today and wound cultures were also collected today; Ceftriaxone (day 4) + fluconazole (day 3) + Daptomycin (day 1))
--- NOTE | 2021-09-05 11:50 | DI.RAD_ITS ---
Exam(s) XR CHEST 2V PA LATERAL EXAM: XR CHEST 2V PA LATERAL CLINICAL HISTORY: fever. TECHNIQUE: 2D digital imaging was performed. COMPARISON: CR,XR XR PORTABLE CHEST AP from 07/12/2021 FINDINGS: Fusion hardware in the cervical thoracic spine is again noted. Heart size is normal. The mediastinum is not widened. Left lung remains clear. There is subtle suggestion nodular infiltrate in the right lung base, caleb r seen on the frontal view. No pleural effusions. IMPRESSION: Subtle increased markings-probable infiltrate right lung base. No pleural effusions. No pulmonary e lizzie. DATA REPOSITORY: RADIATION DOSE DELIVERED:
[2021-09-05] MEDS: DAPTOmycin 500 MG in Normal Saline 50 ML 100 MG IVPB (12:26)
[2021-09-05] MEDS: Enoxaparin 40 MG/0.4 ML SYR SC (12:26)
[2021-09-05 13:12] LABS: Bilirubin Negative (Negative); Blood Trace-intact (Negative); Clarity Clear (Clear); Glucose Negative (Negative); Ketones Negative (Negative); Leukocyte Esterase Trace (Negative); Nitrite Negative (Negative); Specific Gravity >= 1.030 (1.005-1.025); Urobilinogen 0.2 EU/dL (Up TO 0.2)
[2021-09-05 13:19] LABS: Bacteria Rare HPF (Negative); C & S Indicated? Yes; Casts 0-2 Hyaline LPF (Negative); Crystals Negative HPF (Negative); Epithelial Cells Few HPF (Negative); Mucus Trace (Negative)
[2021-09-05] MEDS: Protein Nutritional Supplement 16 GM 1 OUNCE PACKET PO ×2 (14:47→20:47)
[2021-09-05] MEDS: cefTRIAXone 2 GM/50 ML BAG IVPB (14:47)
[2021-09-05] MEDS: Normal Saline 1,000 ML 1000 ML IV (15:37)
[2021-09-05] MEDS: Ibuprofen 600 MG TAB PO (16:37)
[2021-09-05] MEDS: Mirtazapine 15 MG TAB 7.5 MG PO (22:59)
[2021-09-06 00:16] VITALS: BP 130/68; PULSE 80; RESP 18; TEMP 36.5; O2SAT 96
[2021-09-06 04:09] VITALS: BP 103/60; PULSE 78; RESP 16; TEMP 36.9; O2SAT 92
[2021-09-06] MEDS: Pantoprazole 40 MG TABCR PO (06:35)
[2021-09-06] MEDS: Acetaminophen 325 MG TAB 650 MG PO ×3 (06:36→23:52)
[2021-09-06] MEDS: Protein Nutritional Supplement 16 GM 1 OUNCE PACKET PO ×3 (07:36→20:08)
[2021-09-06] MEDS: Magnesium Chloride 64 MG TABCR 128 MG PO ×2 (07:37→20:09)
[2021-09-06] MEDS: Normal Saline Flush 10 ML SYR IVP ×3 (07:37→20:07)
[2021-09-06] MEDS: Polyethylene Glycol 3350 17 GM PACKET PO (07:37)
[2021-09-06] MEDS: Cholecalciferol (Vitamin D3) 1,000 UNIT TAB 1000 UNITS PO (07:37)
[2021-09-06] MEDS: DULoxetine 30 MG CAP 60 MG PO (07:37)
[2021-09-06] MEDS: diazePAM 2 MG TAB PO ×3 (07:38→20:09)
[2021-09-06] MEDS: amLODIPine 10 MG TAB PO (07:38)
[2021-09-06] MEDS: Senna TAB 2 TAB PO ×2 (07:38→20:09)
[2021-09-06] MEDS: Lactobacillus Acidophilus CAP 1 CAP PO ×3 (07:38→20:10)
[2021-09-06] MEDS: Multivitamin TAB 1 TAB PO (07:38)
[2021-09-06] MEDS: Ascorbic Acid 500 MG TAB PO ×2 (07:38→20:09)
[2021-09-06] MEDS: Docusate Sodium 100 MG CAP PO ×3 (07:38→20:10)
[2021-09-06 08:00] VITALS: BP 129/71; PULSE 84; RESP 14; TEMP 36.9; O2SAT 96
--- NOTE | 2021-09-06 10:38 | W.PM.PROGNOT ---
Date of Service Date of service: 09/06/21 Time of Service: 10:38 Assessment and Plan Assessment and plan (1) Fever: Status: Acute Assessment and plan: no further fevers overnight. repeat blood cultures have been negative. urine with no bacterial growth seen. procal < 0.1, lactate normal vitals normal no resp or abd c/o. suspect infection in wounds so will culture. continue dapto day 2 based on previous culture reports. repeat blood cultures, urine and CXR r/o other source. (2) Fungemia: Status: Acute Assessment and plan: one blood culture tube positive, but also with yeast in his urine. repeat blood cultures negative day 4 diflucan. echo with no evidence of vegetation (3) UTI (urinary tract infection): Status: Acute Assessment and plan: culture growing yeast diflucan IV day 3 Qualifiers: Encounter type: initial encounter Indwelling urinary catheter type: indwelling urethral catheter Urinary tract infection type: catheter-associated UTI Qualified Code(s): T83.511A - Infection and inflammatory reaction due to indwelling urethral catheter, initial encounter; N39.0 - Urinary tract infection, site not specified (4) Indwelling catheter replaced: Status: Resolved Assessment and plan: suprapubic catheter plugged, replaced in the ED ceftriaxone 2 gm IV for 3 days and still running fevers, no bacterial growth. urine culture grew yeast only (5) Chronic recurrent multifocal osteomyelitis: Status: Chronic Assessment and plan: continue routine wound care per outpatient team followed by [facility] wound care (6) Discharge planning issues: Status: Acute Assessment and plan: case management following. will need swing level stay for IV antibiotics and nursing care for wounds. discussed with Dr Olson Subjective Subjective Patient reports: no new complaints, tolerating liquids well, tolerating a regular diet and afebrile Interval history since last seen: no further fevers overnight pereyra catheter draining well. Exam Const General: cooperative, no acute distress and ill appearing chronically Nutritional Appearance: average body habitus Orientation: alert, awake and oriented x3 HENMT Head: normal to inspection, normocephalic and atraumatic Resp Effort & Inspection: no cough Cardio Rate: regular rate Rhythm: regular rhythm GI Inspection: other (suprapubic catheter intact, insertion site clear, colostomy bag intact,) Palpation: soft and other (soft brown stool in colostomy) Skin Lesions: lesion noted Neuro General: patient alert, patient awake and patient oriented x3 Cognition: normal cognition Extrem General: edema Laterality: bilateral and muscle atrophy (parapelgic) of the right lower extremity and of the left lower extremity Objective Last Vital Signs Temp 36.9 C 09/06/21 08:00 Pulse 84 09/06/21 08:00 Resp 14 09/06/21 08:00 BP 129/71 09/06/21 08:00 Pulse Ox 96 09/06/21 08:00 Laboratory Results - last 24 hr 09/05/21 09/05/21 09/05/21 11:11 11:11 12:40 WBC 5.66 RBC 3.57 L Hgb 10.3 L Hct 32.0 L MCV 89.6 MCH 28.9 MCHC 32.2 RDW 12.9 Plt Count 201 MPV 10.0 Immature Gran % 0.5 Neutrophils % 73.1 Lymphocytes % 17.7 Monocytes % 8.3 Eosinophils % 0.2 Basophils % 0.2 Nucleated RBC % 0 Absolute Neutrophils 4.14 Absolute Lymphocytes 1.00 L Absolute Monocytes 0.47 Absolute Eosinophils 0.01 Absolute Basophils 0.01 Sodium 138 Potassium 3.5 Chloride 104 Carbon Dioxide 24.8 Anion Gap 9.2 BUN 15 Creatinine 0.7 Estimated GFR/1.73 m2 >= 60.00 Glucose 103 Calcium 8.6 Urine Color Yellow Urine Clarity Clear Urine pH 6.0 Ur Specific [place] >= 1.030 H Urine Protein 30 H Urine Ketones Negative Urine Blood Trace-intact H Urine Nitrite Negative Urine Bilirubin Negative Urine Urobilinogen 0.2 Ur Leukocyte Esterase Trace H Urine RBC 3-5 H Urine WBC 10-20 H Ur Epithelial Cells Few Urine Crystals Negative Urine Bacteria Rare Urine Casts 0-2 Hyaline Urine Mucus Trace Ur Culture Indicated? Yes Urine Glucose Negative
--- NOTE | 2021-09-06 11:47 | CMPROGNOTE_ITS ---
- If Service Date Differs Date of service: 09/06/21 Time of Service: 11:47 Care Management Progress Note S/O: Favio was sitting up in bed when CM met with him. He stated that he is having a good day, but he is not happy learning that he may have to be at [facility] for a prolonged stay due to his IV abx course. Per report, awaiting cultures to determine this course. Referrals have been sent to SNF beds that have been opened by the [facility], in [facility] and in [place]. Favio reports that this is not his first choice, but understands that his options are limited. CM stated that he may have more options if his senior living [facility] is approved. CM will continue to follow. A: Bruce is a 56 year old male admitted to [facility] on 09/01/21 with a UTI. P: As Favio's caregiver Nicki is no longing willing to care for him, Favio will likely need placement in a SNF. 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 Referrals have been sent to [facility] and [facility] as these facilities have received special state funding. It is possible that they may have more flexibility regarding payer source. Since Favio is growing yeast in blood and urine, he will likely remain acute for some time. CM will continue to support Favio and to assess for additional discharge needs.
[2021-09-06] MEDS: Enoxaparin 40 MG/0.4 ML SYR SC (11:51)
[2021-09-06] MEDS: DAPTOmycin 500 MG in Normal Saline 50 ML 100 MG IVPB (12:32)
[2021-09-06] MEDS: cefTRIAXone 2 GM/50 ML BAG IVPB (13:52)
[2021-09-06 15:06] VITALS: BP 117/69; PULSE 81; RESP 18; TEMP 38.1; O2SAT 96
[2021-09-06] MEDS: Mirtazapine 15 MG TAB 7.5 MG PO (22:25)
[2021-09-06 23:38] VITALS: BP 112/64; PULSE 81; RESP 18; TEMP 38; O2SAT 93
[2021-09-07 04:00] VITALS: TEMP 38.1
[2021-09-07 07:48] VITALS: BP 129/79; PULSE 77; RESP 18; TEMP 37.4; O2SAT 95
[2021-09-07] MEDS: Protein Nutritional Supplement 16 GM 1 OUNCE PACKET PO ×3 (07:50→20:17)
[2021-09-07] MEDS: Magnesium Chloride 64 MG TABCR 128 MG PO ×2 (07:50→20:18)
[2021-09-07] MEDS: Polyethylene Glycol 3350 17 GM PACKET PO (07:50)
[2021-09-07] MEDS: DULoxetine 30 MG CAP 60 MG PO (07:50)
[2021-09-07] MEDS: Cholecalciferol (Vitamin D3) 1,000 UNIT TAB 1000 UNITS PO (07:50)
[2021-09-07] MEDS: Docusate Sodium 100 MG CAP PO ×3 (07:51→20:18)
[2021-09-07] MEDS: Lactobacillus Acidophilus CAP 1 CAP PO ×3 (07:51→20:18)
[2021-09-07] MEDS: Multivitamin TAB 1 TAB PO (07:51)
[2021-09-07] MEDS: Ascorbic Acid 500 MG TAB PO ×2 (07:51→20:18)
[2021-09-07] MEDS: Senna TAB 2 TAB PO ×2 (07:51→20:18)
[2021-09-07] MEDS: Pantoprazole 40 MG TABCR PO (07:51)
[2021-09-07] MEDS: diazePAM 2 MG TAB PO ×3 (07:51→20:18)
[2021-09-07] MEDS: amLODIPine 10 MG TAB PO (07:51)
[2021-09-07] MEDS: Normal Saline Flush 10 ML SYR IVP ×3 (07:52→20:17)
[2021-09-07 11:40] VITALS: TEMP 37.3
[2021-09-07] MEDS: Enoxaparin 40 MG/0.4 ML SYR SC (12:13)
[2021-09-07] MEDS: Bacitracin 1 PACKET TP (13:36)
[2021-09-07] MEDS: cefTRIAXone 2 GM/50 ML BAG IVPB (16:31)
--- NOTE | 2021-09-07 16:51 | W.PM.PROGNOT ---
Date of Service Date of service: 09/07/21 Time of Service: 16:51 Assessment and Plan Assessment and plan (1) Sepsis: Status: Acute Assessment and plan: Due to yeast UTI/fungemia. Await speciation/sensitivities of yeast. Continue empiric fluconazole. (2) Fungemia: Status: Acute Assessment and plan: As above. Repeat blood cultures negative Continue fluconazole. Echo with no evidence of vegetation. Await speciation/sensitivities. (3) RLL pneumonia: Status: Acute Assessment and plan: On IV ceftriaxone - if no improvement by tomorrow, consider expansion to zosyn. (4) UTI (urinary tract infection): Status: Acute Assessment and plan: As above Qualifiers: Urinary tract infection type: catheter-associated UTI Indwelling urinary catheter type: indwelling urethral catheter Encounter type: initial encounter Qualified Code(s): T83.511A - Infection and inflammatory reaction due to indwelling urethral catheter, initial encounter; N39.0 - Urinary tract infection, site not specified (5) Indwelling catheter replaced: Status: Resolved Assessment and plan: suprapubic catheter replaced in the ED (6) Chronic recurrent multifocal osteomyelitis: Status: Chronic Assessment and plan: Currently, empirically on daptomycin and ceftriaxone. Followed by [facility] wound care - appointment recently rescheduled. (7) DVT prophylaxis: Status: Acute Assessment and plan: SC enoxaparin (8) Discharge planning issues: Status: Acute Assessment and plan: Will need swing level stay for IV antibiotics and nursing care for wounds. Subjective Subjective Interval history since last seen: Mr Velasquez states that he is feeling better. He reports a frog in his throat for a couple of days. Has not been able to bring up sputum though it feels like it's there. Denies dizziness, chest pain, shortness of breath, nausea. Exam Narrative Exam Narrative: General: Pleasant middle-aged male who is coughing while in bed, A&Ox3, at his baseline mental status HEENT: EOMI, MMM Heart: RRR, no m/r/g Lungs: coughing, but CTAB Abdomen: soft, nontender, nondistended Extremities: R ankle/foot dressed - c/d/i. LLE w/o edema/clubbing/cyanosis Objective Last Vital Signs Temp 37.3 C 09/07/21 11:40 Pulse 77 11/06/21 07:48 Resp 18 09/07/21 07:48 BP 129/79 09/07/21 07:48 Pulse Ox 95 09/07/21 07:48
[2021-09-07] MEDS: guaiFENesin 600 MG TABCR PO (20:17)
[2021-09-07 20:18] VITALS: TEMP 37
[2021-09-07] MEDS: Ibuprofen 600 MG TAB PO (20:18)
[2021-09-07] MEDS: Acetaminophen 325 MG TAB 650 MG PO (20:18)
[2021-09-07] MEDS: Mirtazapine 15 MG TAB 7.5 MG PO (20:18)
[2021-09-07] MEDS: DAPTOmycin 500 MG in Normal Saline 50 ML 100 MG IVPB (20:21)
[2021-09-07 23:42] VITALS: BP 129/79; PULSE 77; RESP 18; TEMP 36.8; O2SAT 96
[2021-09-08 06:59] LABS: Abs Immature Grans 0.06 10^3/uL (0.0-0.06); Absolute Basophil Count 0.03 10^3/uL (0.0-0.2); Absolute Eosinophil Count 0.15 10^3/uL (0.0-0.7); Absolute Lymphocyte Count 0.57 10^3/uL (1.2-3.4); Absolute Monocyte Count 0.54 10^3/uL (0.1-0.8); Absolute Neutrophil Count 4.53 10^3/uL (1.2-6.7); Basophils % 0.5; Eosinophils % 2.6; HCT 34.3 % (40.0-50.0); HGB 11.2 g/dL (13.5-17.5); Lymphocytes % 9.7; MCH 28.6 pg (27.0-33.0); MCHC 32.7 % (32.0-36.0); MCV 87.5 fL (80-95); MPV 9.6 fL (8.0-11.0); Monocytes % 9.2; Nucleated RBC 0 %; Platelet Count 202 10^3/uL (130-400); RBC 3.92 10^6/uL (4.36-5.78); RDW-SD 48.5 fL; WBC 5.88 10^3/uL (4.4-10.8)
[2021-09-08 07:12] LABS: Anion Gap 7.6 mmol/L (3-11); BUN 53 mg/dL (7-18); C-Reactive Protein 6.36 mg/dL (0.0-0.3); CO2 24.4 mmol/L (21.0-32.0); CREATININE 1.6 mg/dL (0.70-1.30); Chloride 104 mmol/L (98-107); Estimated GFR 45.27 (mL/min/1.73m2); Glucose 129 mg/dL (74-106); Magnesium 2.1 mg/dL (1.8-2.4); Potassium 4.9 mmol/L (3.5-5.1); Sodium 136 mmol/L (136-145)
[2021-09-08 07:25] VITALS: BP 124/82; PULSE 74; RESP 18; TEMP 36.4; O2SAT 96
[2021-09-08] MEDS: Normal Saline Flush 10 ML SYR IVP ×4 (08:18→21:00)
[2021-09-08] MEDS: Protein Nutritional Supplement 16 GM 1 OUNCE PACKET PO ×3 (08:19→21:00)
[2021-09-08] MEDS: DULoxetine 30 MG CAP 60 MG PO (08:19)
[2021-09-08] MEDS: Senna TAB 2 TAB PO ×2 (08:19→20:59)
[2021-09-08] MEDS: Polyethylene Glycol 3350 17 GM PACKET PO (08:19)
[2021-09-08] MEDS: diazePAM 2 MG TAB PO ×3 (08:19→21:00)
[2021-09-08] MEDS: Cholecalciferol (Vitamin D3) 1,000 UNIT TAB 1000 UNITS PO (08:19)
[2021-09-08] MEDS: Magnesium Chloride 64 MG TABCR 128 MG PO ×2 (08:19→20:59)
[2021-09-08] MEDS: amLODIPine 10 MG TAB PO (08:20)
[2021-09-08] MEDS: Multivitamin TAB 1 TAB PO (08:20)
[2021-09-08] MEDS: guaiFENesin 600 MG TABCR PO ×2 (08:20→20:58)
[2021-09-08] MEDS: Docusate Sodium 100 MG CAP PO ×3 (08:20→20:58)
[2021-09-08] MEDS: Lactobacillus Acidophilus CAP 1 CAP PO ×3 (08:20→20:58)
[2021-09-08] MEDS: Pantoprazole 40 MG TABCR PO (08:20)
[2021-09-08] MEDS: Ascorbic Acid 500 MG TAB PO ×2 (08:20→20:58)
[2021-09-08 09:39] LABS: Creatine Kinase 339 U/L (39-308)
[2021-09-08] MEDS: Lactated Ringers 1,000 ML 100 ML IV ×2 (10:28→23:32)
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
[2021-09-08] MEDS: Enoxaparin 40 MG/0.4 ML SYR SC (11:56)
[2021-09-08 15:36] VITALS: BP 158/90; PULSE 75; RESP 18; TEMP 37.4; O2SAT 96
--- NOTE | 2021-09-08 15:37 | W.PM.PROGNOT ---
Date of Service Date of service: 09/08/21 Time of Service: 15:37 Assessment and Plan Assessment and plan (1) Sepsis: Status: Acute Assessment and plan: Due to yeast UTI/fungemia. Await speciation/sensitivities of yeast. Continue empiric fluconazole. (2) Fungemia: Status: Acute Assessment and plan: As above. Repeat blood cultures negative Continue fluconazole. Echo with no evidence of vegetation. Await speciation/sensitivities. (3) RLL pneumonia: Status: Acute Assessment and plan: Conitnue IV ceftriaxone. (4) UTI (urinary tract infection): Status: Acute Assessment and plan: As above Qualifiers: Urinary tract infection type: catheter-associated UTI Indwelling urinary catheter type: indwelling urethral catheter Encounter type: initial encounter Qualified Code(s): T83.511A - Infection and inflammatory reaction due to indwelling urethral catheter, initial encounter; N39.0 - Urinary tract infection, site not specified (5) DIAMOND (acute kidney injury): Status: Acute Assessment and plan: Due to dehydration vs daptomycin. Daptomycin d/c'ed (wound cx were negative). CPK mildly elevated, but not enough to cause DIAMOND. Will tx with IVF overnight and recheck Cr in am. (6) Indwelling catheter replaced: Status: Resolved Assessment and plan: suprapubic catheter replaced in the ED (7) Chronic recurrent multifocal osteomyelitis: Status: Chronic Assessment and plan: Currently, empirically on ceftriaxone. Daptomycin d/c'ed as above due to DIAMOND, and wound cx were negative. WIll monitor closely. Followed by [facility] [place] - appointment recently rescheduled. (8) DVT prophylaxis: Status: Acute Assessment and plan: SC enoxaparin (9) Discharge planning issues: Status: Acute Assessment and plan: Will need swing level stay for IV antibiotics and nursing care for wounds. Subjective Subjective Interval history since last seen: Favio states that his cough is productive today, but he does not the color. Denies dizziness, chest pain, shortness of breath, nausea. Asks when he can go home. Exam Narrative Exam Narrative: General: Pleasant middle-aged male who is coughing while in bed, but less so than yesterday, A&Ox3, at his baseline mental status HEENT: EOMI, MMM Heart: RRR, no m/r/g Lungs: wet cough, CTAB anteriorly Abdomen: soft, nontender, nondistended Extremities: R ankle/foot dressed - c/d/i. LLE w/o edema/clubbing/cyanosis Objective Last Vital Signs Temp 37.4 C 09/08/21 15:36 Pulse 75 09/08/21 15:36 Resp 18 09/08/21 15:36 BP 158/90 H 09/08/21 15:36 Pulse Ox 96 09/08/21 15:36 Laboratory Results - last 24 hr 09/08/21 09/08/21 06:15 06:15 WBC 5.88 RBC 3.92 L Hgb 11.2 L Hct 34.3 L MCV 87.5 MCH 28.6 MCHC 32.7 RDW 15.0 H Plt Count 202 MPV 9.6 Immature Gran % 1.0 Neutrophils % 77.0 Lymphocytes % 9.7 Monocytes % 9.2 Eosinophils % 2.6 Basophils % 0.5 Nucleated RBC % 0 Absolute Neutrophils 4.53 Absolute Lymphocytes 0.57 L Absolute Monocytes 0.54 Absolute Eosinophils 0.15 Absolute Basophils 0.03 Sodium 136 Potassium 4.9 D Chloride 104 Carbon Dioxide 24.4 Anion Gap 7.6 BUN 53 H D Creatinine 1.6 H D Estimated GFR/1.73 m2 45.27 Glucose 129 H Calcium 9.0 Magnesium 2.1 Creatine Kinase 339 H C-Reactive Protein 6.36 H
[2021-09-08] MEDS: cefTRIAXone 2 GM/50 ML BAG IVPB (16:10)
[2021-09-08] MEDS: Mirtazapine 15 MG TAB 7.5 MG PO (21:19)
[2021-09-08 22:50] VITALS: BP 139/87; PULSE 76; RESP 18; TEMP 37.2; O2SAT 95
[2021-09-09 07:24] LABS: Abs Immature Grans 0.01 10^3/uL (0.0-0.06); Absolute Eosinophil Count 0.05 10^3/uL (0.0-0.7); Absolute Lymphocyte Count 0.95 10^3/uL (1.2-3.4); Absolute Neutrophil Count 1.73 10^3/uL (1.2-6.7); Eosinophils % 1.6; HCT 30.1 % (40.0-50.0); HGB 9.7 g/dL (13.5-17.5); Immature Grans % 0.3; Lymphocytes % 31.3; MCHC 32.2 % (32.0-36.0); MCV 86.7 fL (80-95); MPV 10.8 fL (8.0-11.0); Monocytes % 9.9; Neutrophils % 56.9; Nucleated RBC 0 %; Platelet Count 179 10^3/uL (130-400); RBC 3.47 10^6/uL (4.36-5.78); RDW 12.8 % (11.8-14.1); RDW-SD 40.4 fL; WBC 3.04 10^3/uL (4.4-10.8)
[2021-09-09 08:01] LABS: BUN 10 mg/dL (7-18); C-Reactive Protein 10.37 mg/dL (0.0-0.3); CREATININE 0.5 mg/dL (0.70-1.30); Calcium 8.3 mg/dL (8.5-10.1); Chloride 105 mmol/L (98-107); Glucose 87 mg/dL (74-106); Magnesium 1.5 mg/dL (1.8-2.4); Potassium 3.3 mmol/L (3.5-5.1); Sodium 141 mmol/L (136-145)
[2021-09-09 08:49] VITALS: BP 146/80; PULSE 68; RESP 18; TEMP 36.7; O2SAT 96
[2021-09-09] MEDS: Lactobacillus Acidophilus CAP 1 CAP PO ×3 (10:04→21:10)
[2021-09-09] MEDS: Pantoprazole 40 MG TABCR PO (10:04)
[2021-09-09] MEDS: amLODIPine 10 MG TAB PO (10:04)
[2021-09-09] MEDS: diazePAM 2 MG TAB PO ×3 (10:04→21:08)
[2021-09-09] MEDS: Senna TAB 2 TAB PO ×2 (10:04→21:08)
[2021-09-09] MEDS: Ascorbic Acid 500 MG TAB PO (10:05)
[2021-09-09] MEDS: guaiFENesin 600 MG TABCR PO ×2 (10:05→21:09)
[2021-09-09] MEDS: Multivitamin TAB 1 TAB PO (10:05)
[2021-09-09] MEDS: Docusate Sodium 100 MG CAP PO ×3 (10:05→21:30)
[2021-09-09] MEDS: DULoxetine 30 MG CAP 60 MG PO (10:05)
[2021-09-09] MEDS: Potassium Chloride 20 MEQ TABCR 40 MEQ PO (10:06)
[2021-09-09] MEDS: Magnesium Chloride 64 MG TABCR 128 MG PO ×2 (10:06→21:08)
[2021-09-09] MEDS: MAGNESIUM SULFATE 4 GM/100 ML BAG IVPB (10:07)
[2021-09-09] MEDS: Protein Nutritional Supplement 16 GM 1 OUNCE PACKET PO ×2 (10:07→21:11)
[2021-09-09] MEDS: Polyethylene Glycol 3350 17 GM PACKET PO (10:07)
[2021-09-09] MEDS: Normal Saline Flush 10 ML SYR IVP ×2 (10:08→21:10)
[2021-09-09] MEDS: Cholecalciferol (Vitamin D3) 1,000 UNIT TAB 1000 UNITS PO (10:46)
--- NOTE | 2021-09-09 10:52 | CMPROGNOTE_ITS ---
- If Service Date Differs Date of service: 09/09/21 Time of Service: 10:52 Care Management Progress Note S/O: Favio was tested for Covid today and the test came back positive. He was placed on isolation so CM was unable to meet with him and was unable to reach him by phone. Favio was febrile over the weekend and a chest xray was done which suggested pneumonia. He has been placed on antibiotics (Ceftriaxone) for that and continues to be empirically treated with fluconazole for a fungal infection in his blood and urine. Today Favio has been afebrile and his oxygen saturation levels have been in the mid to upper 90's on room air. Favio remains acute at this time and because of the Covid infection and the need for IV antimicrobial therapy, discharge plans are on hold. A: Bruce is a 56 year old male admitted to [facility] on 09/01/21 with a UTI. P: As Favio's caregiver Nicki is no longing willing to care for him, Favio will likely need placement in a SNF. His terminologist Medicaid application has still not been approved so this will likely be a barrier. Referrals have been sent to [facility] [place] and [facility] as these facilities have received special state funding. Efforts to transfer Favio are on hold at the moment because of the Covid infection and the need for IV antimicrobial therapy. Since Favio is growing yeast in blood and urine, he will likely remain acute for some time. CM will continue to support Favio and to assess for additional discharge needs.
[2021-09-09 11:03] LABS: Source Nasal/Nares
[2021-09-09] MEDS: Enoxaparin 40 MG/0.4 ML SYR SC (11:20)
[2021-09-09 11:55] LABS: COVID-19 PCR POSITIVE (Negative)
--- NOTE | 2021-09-09 13:00 | PGE_ITS ---
Date of Service Date of service: 09/09/21 Time of Service: 13:00 Assessment and Plan Assessment and plan (1) COVID-19: Status: Acute Assessment and plan: not requiring oxygen. qualifies for monoclonal antibodies monitor respiratory status closely covid precautions (2) Fungemia: Status: Acute Assessment and plan: one blood culture tube positive, but also with yeast in his urine. repeat blood cultures negative day 4 diflucan. echo with no evidence of vegetation (3) UTI (urinary tract infection): Status: Acute Assessment and plan: culture growing yeast diflucan IV day 3 Qualifiers: Urinary tract infection type: catheter-associated UTI Indwelling urinary catheter type: indwelling urethral catheter Encounter type: initial encounter Qualified Code(s): T83.511A - Infection and inflammatory reaction due to indwelling urethral catheter, initial encounter; N39.0 - Urinary tract infection, site not specified (4) Indwelling catheter replaced: Status: Resolved Assessment and plan: suprapubic catheter plugged, replaced in the ED ceftriaxone 2 gm IV for 3 days and still running fevers, no bacterial growth. urine culture grew yeast only (5) Chronic recurrent multifocal osteomyelitis: Status: Chronic Assessment and plan: continue routine wound care per outpatient team followed by [facility] wound care (6) Discharge planning issues: Status: Acute Assessment and plan: case management following. will need swing level stay for IV antibiotics and nursing care for wounds. discussed with Dr tillman Subjective Subjective Patient reports: no new complaints, tolerating liquids well, tolerating a regular diet and afebrile Exam Const General: cooperative, no acute distress and ill appearing chronically Nutritional Appearance: average body habitus Orientation: alert, awake and oriented x3 HENNV Head: normal to inspection, normocephalic and atraumatic Resp Effort & Inspection: no cough Cardio Rate: regular rate Rhythm: regular rhythm GI Inspection: other (suprapubic catheter intact, insertion site clear, colostomy bag intact,) Palpation: soft and other (soft brown stool in colostomy) Skin Lesions: lesion noted Neuro General: patient alert, patient awake and patient oriented x3 Cognition: normal cognition Extrem General: edema Laterality: bilateral and muscle atrophy (parapelgic) of the right lower extremity and of the left lower extremity Objective Last Vital Signs Temp 36.7 C 09/09/21 08:49 Pulse 68 09/09/21 08:49 Resp 18 09/09/21 08:49 BP 146/80 H 09/09/21 08:49 Pulse Ox 96 09/09/21 08:49 Laboratory Results - last 24 hr 09/09/21 09/09/21 09/09/21 06:00 06:00 11:00 WBC 3.04 L D RBC 3.47 L Hgb 9.7 L Hct 30.1 L MCV 86.7 MCH 28.0 MCHC 32.2 RDW 12.8 Plt Count 179 MPV 10.8 Immature Gran % 0.3 Neutrophils % 56.9 Lymphocytes % 31.3 Monocytes % 9.9 Eosinophils % 1.6 Basophils % 0.0 Nucleated RBC % 0 Absolute Neutrophils 1.73 Absolute Lymphocytes 0.95 L Absolute Monocytes 0.30 Absolute Eosinophils 0.05 Absolute Basophils 0.00 Sodium 141 Potassium 3.3 L D Chloride 105 Carbon Dioxide 28.0 Anion Gap 8.0 BUN 10 D Creatinine 0.5 L D Estimated GFR/1.73 m2 >= 60.00 Glucose 87 Calcium 8.3 L Magnesium 1.5 L C-Reactive Protein 10.37 H COVID-19 Source Nasal/Nares SARS-CoV-2 (PCR) POSITIVE A*
[2021-09-09] MEDS: Normal Saline 500 ML 30 ML IV (13:09)
[2021-09-09] MEDS: cefTRIAXone 2 GM/50 ML BAG IVPB (15:37)
--- NOTE | 2021-09-09 17:31 | W.PM.PROGNOT ---
Date of Service Date of service: 09/09/21 Time of Service: 17:32 Assessment and Plan Assessment and plan (1) COVID-19: Status: Acute Assessment and plan: Actually doing quite well from this stand point at this time. S/p MAB. Not requiring O2. Work with IS/acapella, provide supplementation with vitamin C & D. Trend inflammatory markers. (2) Sepsis: Status: Resolved Assessment and plan: Due to yeast UTI/fungemia. Await speciation/sensitivities of yeast. Continue empiric fluconazole. (3) Fungemia: Status: Acute Assessment and plan: As above. Repeat blood cultures negative Continue fluconazole. Echo with no evidence of vegetation. Await speciation/sensitivities. (4) RLL pneumonia: Status: Acute Assessment and plan: Conitnue IV ceftriaxone - however, if procalcitonin is negative tomorrow, we can assume that the RLL pneumonia is actually due to COVID-19. Would d/c abx at that point. (5) UTI (urinary tract infection): Status: Acute Assessment and plan: As above Qualifiers: Encounter type: initial encounter Indwelling urinary catheter type: indwelling urethral catheter Urinary tract infection type: catheter-associated UTI Qualified Code(s): T83.511A - Infection and inflammatory reaction due to indwelling urethral catheter, initial encounter; N39.0 - Urinary tract infection, site not specified (6) DIAMOND (acute kidney injury): Status: Resolved Assessment and plan: Due to dehydration vs daptomycin. Daptomycin d/c'ed (wound cx were negative). DIAMOND resolved. D/c IVF. (7) Indwelling catheter replaced: Status: Resolved Assessment and plan: suprapubic catheter replaced in the ED (8) Chronic recurrent multifocal osteomyelitis: Status: Chronic Assessment and plan: Currently, empirically on ceftriaxone. Daptomycin d/c'ed as above due to DIAMOND, and wound cx were negative. WIll monitor closely. Followed by [facility] wound care - appointment recently rescheduled. (9) DVT prophylaxis: Status: Acute Assessment and plan: SC enoxaparin (10) Discharge planning issues: Status: Acute Assessment and plan: Will need swing level stay for IV antibiotics and nursing care for wounds. Subjective Subjective Interval history since last seen: Favio tested positive for COVID-19 this morning. He actually feels much better. Coughing very little. Denies dizziness, chest pain, shortness of breath, nausea. Received MAB infusion today. Exam Narrative Exam Narrative: General: Pleasant middle-aged male who is not coughing, looks better, no dyspnea/tachypnea/cyanosis on room air, A&Ox3, at his baseline mental status HEENT: EOMI, MMM Heart: not auscultated. Lungs: Nonlabored breathing Abdomen: soft, nontender, nondistended Extremities: R ankle/foot dressed - c/d/i. LLE w/o edema/clubbing/cyanosis Objective Last Vital Signs Temp 36.7 C 09/09/21 08:49 Pulse 68 09/09/21 08:49 Resp 18 09/09/21 08:49 BP 146/80 H 09/09/21 08:49 Pulse Ox 96 09/09/21 08:49 Laboratory Results - last 24 hr 09/09/21 09/09/21 09/09/21 06:00 06:00 11:00 WBC 3.04 L D RBC 3.47 L Hgb 9.7 L Hct 30.1 L MCV 86.7 MCH 28.0 MCHC 32.2 RDW 12.8 Plt Count 179 MPV 10.8 Immature Gran % 0.3 Neutrophils % 56.9 Lymphocytes % 31.3 Monocytes % 9.9 Eosinophils % 1.6 Basophils % 0.0 Nucleated RBC % 0 Absolute Neutrophils 1.73 Absolute Lymphocytes 0.95 L Absolute Monocytes 0.30 Absolute Eosinophils 0.05 Absolute Basophils 0.00 Sodium 141 Potassium 3.3 L D Chloride 105 Carbon Dioxide 28.0 Anion Gap 8.0 BUN 10 D Creatinine 0.5 L D Estimated GFR/1.73 m2 >= 60.00 Glucose 87 Calcium 8.3 L Magnesium 1.5 L C-Reactive Protein 10.37 H COVID-19 Source Nasal/Nares SARS-CoV-2 (PCR) POSITIVE A*
[2021-09-09 17:43] VITALS: BP 143/82; PULSE 80; RESP 19; TEMP 36.8; O2SAT 94
--- NOTE | 2021-09-09 20:14 | PCPN_ITS ---
Date of service: 09/09/21 Time of Service: 18:14 Assessment and Plan Assessment and plan (1) COVID-19: Status: Acute (2) Sepsis: Status: Resolved (3) RLL pneumonia: Status: Acute (4) Fungemia: Status: Acute (5) Palliative care encounter: Status: Acute Assessment and plan: Unfortunately Favio is now Covid positive which we will further restrict any interaction he can have with family etc. He is waiting to find out if other people he has been in contact with are positive. We did talk for some time about what his future will look like. We also talked about perhaps allowing some of his illnesses such as UTI pneumonia etc. to run their course knowing that they may result in . He asked about how that would look. When I came back this evening he had obviously thought about this over the day. And asked more questions about allowing different processes to run their course. I assured him that I would be there for him regardless of what his choices were. I also explained that I would help with any kind of pain problems. I was not advocating this avenue but did allow him to explore it. A.m. and p.m. visit Subjective Subjective Interval history since last seen: I met with Favio this morning. He was a little down but trying to keep himself from going into the dark depression. His friend, Nicki, will not take him back home. That is disappointing as he has very few choices. They are looking into places in [place] in [place]. Care management has not reported that they have heard back. He wonders about his future and how his life is going to be. He is concerned that he keeps on losing choices in his life and he wonders how the next 6 months regarding me. I met with him both in the morning and then in the evening. Exam Narrative Exam Narrative: Lying in bed. Listening to music when I walked in but turned it off. Tries to stay upbeat but at the same time there is some desperation. His heart was regular. Lungs minimal aeration. Abdomen soft nontender Unfortunately this evening we found out that Favio was Covid positive Objective Last Vital Signs Temp 98.2 F 09/09/21 17:43 Pulse 80 09/09/21 17:43 Resp 19 09/09/21 17:43 BP 143/82 H 09/09/21 17:43 Pulse Ox 94 09/09/21 17:43 Laboratory Results - last 24 hr 09/09/21 09/09/21 09/09/21 06:00 06:00 11:00 WBC 3.04 L D RBC 3.47 L Hgb 9.7 L Hct 30.1 L MCV 86.7 MCH 28.0 MCHC 32.2 RDW 12.8 Plt Count 179 MPV 10.8 Immature Gran % 0.3 Neutrophils % 56.9 Lymphocytes % 31.3 Monocytes % 9.9 Eosinophils % 1.6 Basophils % 0.0 Nucleated RBC % 0 Absolute Neutrophils 1.73 Absolute Lymphocytes 0.95 L Absolute Monocytes 0.30 Absolute Eosinophils 0.05 Absolute Basophils 0.00 Sodium 141 Potassium 3.3 L D Chloride 105 Carbon Dioxide 28.0 Anion Gap 8.0 BUN 10 D Creatinine 0.5 L D Estimated GFR/1.73 m2 >= 60.00 Glucose 87 Calcium 8.3 L Magnesium 1.5 L C-Reactive Protein 10.37 H COVID-19 Source Nasal/Nares SARS-CoV-2 (PCR) POSITIVE A*
[2021-09-09] MEDS: Mirtazapine 15 MG TAB 7.5 MG PO (21:09)
[2021-09-09] MEDS: Ascorbic Acid 500 MG TAB 1000 MG PO (21:09)
[2021-09-10 06:58] LABS: HCT 29.7 % (40.0-50.0); HGB 9.8 g/dL (13.5-17.5); MCH 28.6 pg (27.0-33.0); MCV 86.6 fL (80-95); MPV 10.5 fL (8.0-11.0); Nucleated RBC 0 %; Platelet Count 201 10^3/uL (130-400); RBC 3.43 10^6/uL (4.36-5.78); RDW 12.6 % (11.8-14.1); WBC 2.99 10^3/uL (4.4-10.8)
[2021-09-10 07:26] LABS: Absolute Basophil Count 0.03 10^3/uL (0.0-0.2); Absolute Eosinophil Count 0.15 10^3/uL (0.0-0.7); Absolute Lymphocyte Count 0.75 10^3/uL (1.2-3.4); Absolute Monocyte Count 0.45 10^3/uL (0.1-0.8); Absolute Neutrophil Count 1.61 10^3/uL (1.2-6.7); Atypical Lymphocytes % 3; Bands % 2; Diff Comment Manual Differential; RBC Morphology Normal
[2021-09-10 07:40] LABS: D-Dimer 1835 ng/mlFEU (<500)
[2021-09-10 07:56] LABS: Procalcitonin < 0.1 ng/mL
[2021-09-10] MEDS: Polyethylene Glycol 3350 17 GM PACKET PO (08:37)
[2021-09-10] MEDS: guaiFENesin 600 MG TABCR PO ×2 (08:37→21:15)
[2021-09-10] MEDS: Magnesium Chloride 64 MG TABCR 128 MG PO ×2 (08:37→21:07)
[2021-09-10] MEDS: Cholecalciferol (Vitamin D3) 1,000 UNIT TAB 2000 UNITS PO (08:38)
[2021-09-10] MEDS: amLODIPine 10 MG TAB PO (08:39)
[2021-09-10] MEDS: DULoxetine 30 MG CAP 60 MG PO (08:40)
[2021-09-10] MEDS: Pantoprazole 40 MG TABCR PO (08:40)
[2021-09-10] MEDS: Lactobacillus Acidophilus CAP 1 CAP PO ×3 (08:40→21:15)
[2021-09-10] MEDS: Senna TAB 2 TAB PO ×2 (08:40→21:09)
[2021-09-10] MEDS: Ascorbic Acid 500 MG TAB 1000 MG PO ×2 (08:41→21:13)
[2021-09-10] MEDS: diazePAM 2 MG TAB PO ×3 (08:41→21:05)
[2021-09-10] MEDS: Multivitamin TAB 1 TAB PO (08:41)
[2021-09-10] MEDS: Docusate Sodium 100 MG CAP PO ×3 (08:41→21:14)
[2021-09-10 08:45] VITALS: BP 149/90; PULSE 68; RESP 18; TEMP 36.3; O2SAT 94
[2021-09-10 08:45] LABS: ALT 41 U/L (16-63); AST 22 U/L (15-37); Albumin 2.8 g/dL (3.4-5.0); Alkaline Phosphatase 71 U/L (46-116); Bilirubin, Direct 0.1 mg/dL (0.0-0.2); Bilirubin, Total 0.2 mg/dL (0.2-1.0); PHOSPHORUS 3.1 mg/dL (2.6-4.7); Total Protein 6.2 g/dL (6.4-8.2)
[2021-09-10 08:53] LABS: BUN 9 mg/dL (7-18); CREATININE 0.5 mg/dL (0.70-1.30); Calcium 8.7 mg/dL (8.5-10.1); Glucose 93 mg/dL (74-106)
[2021-09-10 08:54] LABS: CO2 27.6 mmol/L (21.0-32.0); Creatine Kinase 38 U/L (39-308); Ferritin 792 ng/mL (26-388); Magnesium 1.9 mg/dL (1.8-2.4); Potassium 3.3 mmol/L (3.5-5.1); Sodium 141 mmol/L (136-145)
[2021-09-10 09:26] LABS: Chloride 105 mmol/L (98-107)
[2021-09-10 09:27] LABS: Anion Gap 8.4 mmol/L (3-11)
--- NOTE | 2021-09-10 09:43 | CMPROGNOTE_ITS ---
- If Service Date Differs Date of service: 09/10/21 Time of Service: 09:43 Care Management Progress Note S/O: Favio was diagnosed with Covid yesterday and placed on isolation. CM was unable to meet with him in person and was unable to reach him by phone. Per provider Favio reported that he is feeling better, and although he has a cough once he coughs his chest feels clear. He is also on room air. Dr. Murillo is waiting for a call back from [facility] to discuss Favio's blood cultures. A: Bruce is a 56 year old male admitted to [facility] on 09/01/21 with a UTI. P: As Favio's caregiver Nicki is no longing willing to care for him, Favio will likely need placement in a SNF. His [facility] Medicaid application has still not been approved so this will likely be a barrier. Referrals have been sent to [facility] in [place] and [facility] as these facilities have received special state funding. Efforts to transfer Favio are on hold at the moment because of the Covid infection and the need for IV antimicrobial therapy. Since Favio is growing yeast in blood and urine, he will likely remain acute for some time. CM will continue to support Favio and to assess for additional discharge needs.
[2021-09-10] MEDS: Enoxaparin 40 MG/0.4 ML SYR SC (12:07)
[2021-09-10] MEDS: Benzonatate 100 MG CAP PO ×2 (12:08→21:07)
[2021-09-10] MEDS: cefTRIAXone 2 GM/50 ML BAG IVPB (15:31)
[2021-09-10] MEDS: Protein Nutritional Supplement 16 GM 1 OUNCE PACKET PO ×2 (15:31→21:11)
[2021-09-10 15:51] VITALS: BP 141/92; PULSE 76; RESP 18; TEMP 36.5; O2SAT 93
--- NOTE | 2021-09-10 17:20 | PGE_ITS ---
Date of Service Date of service: 09/10/21 Time of Service: 16:00 Assessment and Plan Assessment and plan (1) COVID-19: Status: Acute Assessment and plan: Continues to do well on RA. S/p MAB. Not requiring O2. Work with IS/acapella, provide supplementation with vitamin C & D. Trend inflammatory markers. (2) Sepsis: Status: Resolved Assessment and plan: Due to UTI/Fungemia, present on admission. Cx grew Lisa Parapsilosis, susceptible to fluconazole. Continue IV fluconazole. Awaiting ID call back to discuss if can switch to PO and duration of tx. Repeat blood cx are negative and no evidence of endocarditis on TTE. (3) Fungemia: Status: Acute Assessment and plan: As above. Repeat blood cultures negative Continue fluconazole. Echo with no evidence of vegetation. (4) RLL pneumonia: Status: Acute Assessment and plan: RLL pneumonia is actually likely due to COVID-19. Procalcitonin is negative. D/c abx. (5) UTI (urinary tract infection): Status: Acute Assessment and plan: As above Qualifiers: Urinary tract infection type: catheter-associated UTI Indwelling urinary catheter type: indwelling urethral catheter Encounter type: initial encounter Qualified Code(s): T83.511A - Infection and inflammatory reaction due to indwelling urethral catheter, initial encounter; N39.0 - Urinary tract infection, site not specified (6) DIAMOND (acute kidney injury): Status: Resolved Assessment and plan: Due to dehydration vs daptomycin. Daptomycin d/c'ed (wound cx were negative). DIAMOND resolved. (7) Indwelling catheter replaced: Status: Resolved Assessment and plan: suprapubic catheter replaced in the ED (8) Chronic recurrent multifocal osteomyelitis: Status: Chronic Assessment and plan: Wound cx negative. D/c all abx and monitor closely. Followed by [facility] wound care - appointment recently rescheduled. (9) DVT prophylaxis: Status: Acute Assessment and plan: SC enoxaparin (10) Discharge planning issues: Status: Acute Assessment and plan: Will possibly need swing level stay for IV antibiotics and nursing care for wounds. Subjective Subjective Interval history since last seen: Feels better. Does have a cough but states onc e he coughs his chest feels clear. On RA. Denies dizziness, chest pain, shortness of breath, nausea. Does not feel tired or weak. Blood cultures from admission came back with Lisa parapsilosis, susceptible to fluconazole. I have placed a phone consult request with ID at [facility], but no call back has yet ocurred. Exam Narrative Exam Narrative: General: Pleasant middle-aged male who is not coughing, looks well, no dyspnea/tachypnea/cyanosis on room air, A&Ox3, at his baseline mental status HEENT: EOMI, MMM Heart: RRR, no m/r/g Lungs: CTAB anteriorly Abdomen: soft, nontender, nondistended Extremities: R ankle/foot dressed - c/d/i. LLE w/o edema/clubbing/cyanosis Objective Last Vital Signs Temp 36.5 C 09/10/21 15:51 Pulse 76 09/10/21 15:51 Resp 18 09/10/21 15:51 BP 141/92 H 09/10/21 15:51 Pulse Ox 93 09/10/21 15:51 Laboratory Results - last 24 hr 09/10/21 09/10/21 09/10/21 06:15 06:15 06:15 WBC 2.99 L RBC 3.43 L Hgb 9.8 L Hct 29.7 L MCV 86.6 MCH 28.6 MCHC 33.0 RDW 12.6 Plt Count 201 MPV 10.5 Immature Gran % 0.0 Neutrophils % 52.0 Band Neutrophils % 2 Lymphocytes % 22.0 Atypical Lymphs % 3 Monocytes % 15.0 Eosinophils % 5.0 Basophils % 1.0 Nucleated RBC % 0 Absolute Neutrophils 1.61 Absolute Lymphocytes 0.75 L Absolute Monocytes 0.45 Absolute Eosinophils 0.15 Absolute Basophils 0.03 RBC Morphology Normal D-Dimer Sodium 141 Potassium 3.3 L Chloride 105 Carbon Dioxide 27.6 Anion Gap 8.4 BUN 9 Creatinine 0.5 L Estimated GFR/1.73 m2 >= 60.00 Glucose 93 Calcium 8.7 Phosphorus 3.1 Magnesium 1.9 Ferritin 792 H Total Bilirubin 0.2 Conjugated Bilirubin 0.1 AST 22 ALT 41 Alkaline Phosphatase 71 Creatine Kinase 38 L C-Reactive Protein 9.60 H Total Protein 6.2 L Albumin 2.8 L Procalcitonin 09/10/21 09/10/21 06:15 06:15 WBC RBC Hgb Hct MCV MCH MCHC RDW Plt Count MPV Immature Gran % Neutrophils % Band Neutrophils % Lymphocytes % Atypical Lymphs % Monocytes % Eosinophils % Basophils % Nucleated RBC % Absolute Neutrophils Absolute Lymphocytes Absolute Monocytes Absolute Eosinophils Absolute Basophils RBC Morphology D-Dimer 1835 H Sodium Potassium Chloride Carbon Dioxide Anion Gap BUN Creatinine Estimated GFR/1.73 m2 Glucose Calcium Phosphorus Magnesium Ferritin Total Bilirubin Conjugated Bilirubin AST ALT Alkaline Phosphatase Creatine Kinase C-Reactive Protein Total Protein Albumin Procalcitonin < 0.1
[2021-09-10] MEDS: Acetaminophen 325 MG TAB 650 MG PO (17:35)
[2021-09-10] MEDS: Potassium Chloride 20 MEQ TABCR 40 MEQ PO (17:53)
[2021-09-10] MEDS: Mirtazapine 15 MG TAB 7.5 MG PO (21:05)
[2021-09-10] MEDS: Normal Saline Flush 10 ML SYR IVP (21:10)
[2021-09-11 07:02] LABS: HCT 32.2 % (40.0-50.0); HGB 10.7 g/dL (13.5-17.5); MCH 28.3 pg (27.0-33.0); MCHC 33.2 % (32.0-36.0); MCV 85.2 fL (80-95); MPV 10.1 fL (8.0-11.0); Nucleated RBC 0 %; Platelet Count 232 10^3/uL (130-400); RBC 3.78 10^6/uL (4.36-5.78); RDW 12.7 % (11.8-14.1); RDW-SD 39.5 fL
[2021-09-11 07:33] LABS: Calcium 9.1 mg/dL (8.5-10.1)
[2021-09-11 07:34] LABS: Albumin 2.9 g/dL (3.4-5.0); Alkaline Phosphatase 67 U/L (46-116); Anion Gap 10.5 mmol/L (3-11); BUN 11 mg/dL (7-18); Bilirubin, Total 0.2 mg/dL (0.2-1.0); CO2 27.5 mmol/L (21.0-32.0); CREATININE 0.5 mg/dL (0.70-1.30); Chloride 107 mmol/L (98-107); Creatine Kinase 39 U/L (39-308); Glucose 93 mg/dL (74-106); PHOSPHORUS 3.8 mg/dL (2.6-4.7); Potassium 3.8 mmol/L (3.5-5.1); Sodium 145 mmol/L (136-145); Total Protein 7.3 g/dL (6.4-8.2)
[2021-09-11 07:35] LABS: ALT 44 U/L (16-63); AST 23 U/L (15-37); Bilirubin, Direct 0.1 mg/dL (0.0-0.2); Magnesium 1.8 mg/dL (1.8-2.4)
[2021-09-11 07:47] LABS: Absolute Eosinophil Count 0.12 10^3/uL (0.0-0.7); Absolute Lymphocyte Count 1.44 10^3/uL (1.2-3.4); Absolute Neutrophil Count 2.24 10^3/uL (1.2-6.7); Atypical Lymphocytes % 3; Bands % 1
[2021-09-11 07:48] LABS: Diff Comment Manual Differential; Polychromasia Present
[2021-09-11 07:53] LABS: D-Dimer 2551 ng/mlFEU (<500)
[2021-09-11 08:13] LABS: Ferritin 634 ng/mL (26-388)
[2021-09-11] MEDS: Polyethylene Glycol 3350 17 GM PACKET PO (08:29)
[2021-09-11] MEDS: Docusate Sodium 100 MG CAP PO ×3 (08:29→21:02)
[2021-09-11] MEDS: Protein Nutritional Supplement 16 GM 1 OUNCE PACKET PO ×3 (08:29→21:04)
[2021-09-11] MEDS: Normal Saline Flush 10 ML SYR IVP ×2 (08:29→21:03)
[2021-09-11] MEDS: Senna TAB 2 TAB PO ×2 (08:30→21:04)
[2021-09-11] MEDS: Magnesium Chloride 64 MG TABCR 128 MG PO ×2 (08:30→21:03)
[2021-09-11] MEDS: amLODIPine 10 MG TAB PO (08:30)
[2021-09-11] MEDS: Multivitamin TAB 1 TAB PO (08:30)
[2021-09-11] MEDS: Benzonatate 100 MG CAP PO ×3 (08:31→21:02)
[2021-09-11] MEDS: guaiFENesin 600 MG TABCR PO ×2 (08:31→21:03)
[2021-09-11] MEDS: Pantoprazole 40 MG TABCR PO (08:31)
[2021-09-11] MEDS: Ascorbic Acid 500 MG TAB 1000 MG PO ×2 (08:31→21:01)
[2021-09-11] MEDS: Cholecalciferol (Vitamin D3) 1,000 UNIT TAB 2000 UNITS PO (08:31)
[2021-09-11] MEDS: Lactobacillus Acidophilus CAP 1 CAP PO ×3 (08:31→21:03)
[2021-09-11] MEDS: DULoxetine 30 MG CAP 60 MG PO (08:32)
[2021-09-11] MEDS: diazePAM 2 MG TAB PO ×3 (08:32→21:02)
[2021-09-11 08:37] VITALS: BP 150/98; PULSE 71; RESP 18; TEMP 37.2; O2SAT 94
--- NOTE | 2021-09-11 09:00 | OT.INIE ---
Occupational Therapy Notes Inpatient Occupational Therapy Evaluation Date: 09/12/21 Referring Doctor: Jose Montoya MD OT Orders: Non-Urgent Precautions: DNR/DNI, Fall, Standard PATIENT PROFILE/ADMITTING DIAGNOSIS: Pt is a 56 year old male who was admitted to [facility] and is currently being seen for covid 19, DIAMOND, sepsis, RLL penumonia, fever, fungemia, acute UTI. Past Medical History: Acute embolism and thrombosis of deep vein of right lower extremity Anxiety disorder Aspiration into airway C. difficile colitis Constipation Constipation due to neurogenic bowel Decubitus skin ulcer Decubitus ulcer of buttock, stage 4 Dislocation of C6/C7 cervical vertebrae DNR (do not resuscitate) DVT (deep venous thrombosis) DVT prophylaxis Encounter for wound care Fall down embankment Fusion of spine H/O deep venous thrombosis Hypokalemia Hypotension Ileus Iron deficiency anemia Large bowel obstruction Major depressive disorder Malnutrition following gastrointestinal surgery Neurogenic bladder Neurogenic bowel Open wound of abdominal wall Palliative care patient Physician orders for life-sustaining treatment (POLST) form indicates patient wish for [id number] status Quadriplegia Right arm pain Visit for wound check Surgical History S/P colostomy Social History/Home Situation: Pt was living in a private home with caregiver Nicki. He states that everything was going well and Nicki (A) him with most/almost all of his ADLs. He states that he enjoys his electric wheelchair because it gives him more freedom. Equipment owned/DME:electric wheelchair, modified silverware, hospital bed SUBJECTIVE: Pt was lying in bed when OT arrived,he states that he feels fine and is frustrated that he has to remain in the hospital at this time. 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 Straw to his mouth without (A) and good control. Pt is also able to (I) use his adaptive silverware to eat with stabbing and facilitation of hand to mouth. This is not pts preference, he would prefer (A) with eating- however he can do this. Bathing- Sitting in bed Able to wash face with max (A) set/clean up and a moderate wash to his abdomen but requires (A) with this due to decrease (B) UE Strength. Pt can use his (B) UE to function with a ipod, use his phone, scratch his face and perform mobility. It is an unrealistic expectation for pt to be totally (I) due to his spinal cord injury which he verbalizes to OT in assessment. BALANCE: Static sitting Good Dynamic Sitting Good SPECIAL TESTS: Daily Activity Limitations Standardized Measure [facility] AM -PAC ?6 clicks? Daily Activity Inpatient Short Form: Raw score:10 Standardized score: 27.31 CMS score: 74.70% INFORMED CONSENT/EDUCATION: Pt instructed in purpose of OT Consult and plan of care. ASSESSMENT: Patient is a 56-year-old male referred to occupational therapy services with diagnosis of covid 19, DIAMOND, sepsis, RLL penumonia, fever, fungemia, acute UTI. Patient presents with clinical signs and symptoms consistent with dx. OT and pt discussed his current level of function, his plans and his function since his last discharge from [facility]. Pt states that he is still at his baseline level of function. He also presents with better (B) UE gross motor control that he did prior. He was able to demonstrate his eating routines and it was discussed that pt is in fact at his baseline level of function that was safe for discharge at last admission. Pt doesn't have his braces which OT explains the importance of continued use but even his (B) hands/digits are still mobile even after last session with this OT. Pt does not feel that he has declined in his functional (I) and has achieved his baseline that was achievable prior. Pt does require (A) with his bathing/dressing/brushing his teeth and set up for his food/eating but this is his new baseline that was established previously due to his spinal cord injury, given his functional impairments. Patient is assessed as a Moderate 32466 complexity based on the following: History: see above Examination: see functional limitations as noted above Presentation: evolving Decision Making: moderate complexity GOALS Goals N/A PLAN OF CARE/TREATMENT PLAN: Discharge from skilled OT services. DISCHARGE RECOMMENDATIONS Prior to pts last discharge from [facility] OT worked with pt to achieve a new baseline level of function for his current level of mobility for his (B) UE and with his medical status. OT and pt discussed pts current level of function at this time and what he is able to achieve and pt is at that baseline level of function that was established last time he was here. He is awaiting surgical consultation on his (B) which will hopefully improve his (I) at that time. But given the severity of his spinal cord injury and the lack of mobility his prior baseline has still been achieved. He currently utilizes his (B) orthosis for his hands and was able to demonstrate his functional (I) with OT today. Based on pts current level of function and the complexity of his home situation and not being able to return to his prior home setting, OT feels that pt would benefit from LTC/SNF until further assessment of a home setting can be established. TREATMENT TIME/MINUTES/CODES [id number], 20 minutes (09:00) Michelle Pearce OTR/L [facility]
--- NOTE | 2021-09-11 10:18 | PDOC.CMPRO ---
- If Service Date Differs Date of service: 09/11/21 Time of Service: 10:18 Care Management Progress Note S/O: Favio remains in isolation, due to his covid diagnosis. CM was unable to meet with him in person and was unable to reach him via phone. Per provider he continues to do well on room air and does not require supplemental O2. Per physical therapy he declines OT and is being discharged from PT services, he has met his baseline function. He transitioned to oral Diflucan today. Referral's are still pending at [facility]. A: Bruce is a 56 year old male admitted to [facility] on 09/01/21 with a UTI. P: Favio's caregiver Nicki is no longing willing to care for him, Favio will likely need placement in a SNF. His [facility] Medicaid application has still not been approved so this will likely be a barrier. Referrals have been sent to [facility] in [place] and [facility] as these facilities have received special state funding. Efforts to transfer Favio are on hold at the moment because of the Covid infection and the need for IV antimicrobial therapy. Since Favio is growing yeast in blood and urine, he will likely remain acute for some time. CM will continue to support Favio and to assess for additional discharge needs.
[2021-09-11] MEDS: Acetaminophen 325 MG TAB 650 MG PO ×2 (11:30→17:50)
[2021-09-11] MEDS: Enoxaparin 40 MG/0.4 ML SYR SC (11:31)
--- NOTE | 2021-09-11 14:56 | PGE_ITS ---
Date of Service Date of service: 09/11/21 Time of Service: 14:56 Assessment and Plan Assessment and plan (1) COVID-19: Status: Acute Assessment and plan: Continues to do well on RA. S/p MAB. Not requiring O2. Work with IS. Cannot use Acapella d/t inability to mount adequate expiratory pressure. Cont supplementation with vitamin C & D. Trend inflammatory markers. D-dimer has increased. CRP decreased. (2) Sepsis: Status: Resolved Assessment and plan: Due to UTI/Fungemia, present on admission. Cx grew Lisa Parapsilosis, susceptible to fluconazole. Change to oral Diflucan. Planning 14 days total of Diflucan. Repeat blood cx are negative and no evidence of endocarditis on TTE. (3) Fungemia: Status: Acute Assessment and plan: As above. Repeat blood cultures negative Continue fluconazole. Echo with no evidence of vegetation. (4) RLL pneumonia: Status: Acute Assessment and plan: RLL pneumonia is actually likely due to COVID-19. Procalcitonin is negative. Previous antibiotics were d/c'd earlier. (5) UTI (urinary tract infection): Status: Acute Assessment and plan: As above Qualifiers: Urinary tract infection type: catheter-associated UTI Indwelling urinary catheter type: indwelling urethral catheter Encounter type: initial encounter Qualified Code(s): T83.511A - Infection and inflammatory reaction due to indwelling urethral catheter, initial encounter; N39.0 - Urinary tract infection, site not specified (6) DIAMOND (acute kidney injury): Status: Resolved Assessment and plan: Due to dehydration vs daptomycin. Daptomycin d/c'ed (wound cx were negative). DIAMOND resolved. (7) Indwelling catheter replaced: Status: Resolved Assessment and plan: suprapubic catheter replaced in the ED (8) Chronic recurrent multifocal osteomyelitis: Status: Chronic Assessment and plan: Wound cx negative. D/c all abx and monitor closely. Followed by [facility] wound care - appointment recently rescheduled. (9) DVT prophylaxis: Status: Acute Assessment and plan: SC enoxaparin (10) Discharge planning issues: Status: Acute Assessment and plan: Will possibly need swing level stay for IV antibiotics and nursing care for wounds. Subjective Subjective Patient reports: no new complaints, feels better, tolerating a regular diet, afebrile and other; denies nausea and vomiting Interval history since last seen: Cough with upper airway congestion; no sputum expectorated. Exam Narrative Exam Narrative: Intermittent weak, coarse cough noted. Const General: cooperative, no acute distress and well groomed Resp Effort & Inspection: normal respiratory effort Auscultation: rhonchi upper bilaterally Cardio Rate: regular rate Rhythm: regular rhythm Heart Sounds: S1 normal and S2 normal GI Palpation: soft and nontender Extrem General: no calf tenderness and other (R ankle and foot with dressing in place. LLE w/o edema.) Psych Speech and Movement: speech clear Mood: congruent mood Affect: blunted Objective Last Vital Signs Temp 37.2 C 09/11/21 08:37 Pulse 71 09/11/21 08:37 Resp 18 09/11/21 08:37 BP 150/98 H 09/11/21 08:37 Pulse Ox 94 09/11/21 08:37 Laboratory Results - last 24 hr 09/11/21 09/11/21 09/11/21 06:30 06:30 06:30 WBC 4.00 L D RBC 3.78 L Hgb 10.7 L Hct 32.2 L MCV 85.2 MCH 28.3 MCHC 33.2 RDW 12.7 Plt Count 232 MPV 10.1 Immature Gran % 0.0 Neutrophils % 55.0 Band Neutrophils % 1 Lymphocytes % 33.0 Atypical Lymphs % 3 Monocytes % 5.0 Eosinophils % 3.0 Basophils % 0.0 Nucleated RBC % 0 Absolute Neutrophils 2.24 Absolute Lymphocytes 1.44 Absolute Monocytes 0.20 Absolute Eosinophils 0.12 Absolute Basophils 0.00 RBC Morphology See Below Polychromasia Present D-Dimer 2551 H Sodium 145 Potassium 3.8 Chloride 107 Carbon Dioxide 27.5 Anion Gap 10.5 BUN 11 Creatinine 0.5 L Estimated GFR/1.73 m2 >= 60.00 Glucose 93 Calcium 9.1 Phosphorus 3.8 Magnesium 1.8 Ferritin 634 H Total Bilirubin 0.2 Conjugated Bilirubin 0.1 AST 23 ALT 44 Alkaline Phosphatase 67 Creatine Kinase 39 C-Reactive Protein 7.80 H Total Protein 7.3 Albumin 2.9 L
[2021-09-11] MEDS: Fluconazole 100 MG TAB 200 MG PO (17:50)
[2021-09-11 19:06] VITALS: BP 140/94; PULSE 68; RESP 19; TEMP 37.2; O2SAT 96
[2021-09-11] MEDS: Mirtazapine 15 MG TAB 7.5 MG PO (21:04)
[2021-09-11 21:11] VITALS: BP 150/89; PULSE 63; RESP 16; TEMP 36.2; O2SAT 92
[2021-09-12] MEDS: amLODIPine 10 MG TAB PO (07:45)
[2021-09-12] MEDS: Ascorbic Acid 500 MG TAB 1000 MG PO ×2 (07:45→20:55)
[2021-09-12] MEDS: Benzonatate 100 MG CAP PO ×3 (07:46→20:55)
[2021-09-12] MEDS: diazePAM 2 MG TAB PO ×3 (07:46→20:55)
[2021-09-12] MEDS: Cholecalciferol (Vitamin D3) 1,000 UNIT TAB 2000 UNITS PO (07:46)
[2021-09-12] MEDS: Fluconazole 100 MG TAB 200 MG PO (07:47)
[2021-09-12] MEDS: guaiFENesin 600 MG TABCR PO ×2 (07:47→20:56)
[2021-09-12] MEDS: Docusate Sodium 100 MG CAP PO ×3 (07:47→20:56)
[2021-09-12] MEDS: Lactobacillus Acidophilus CAP 1 CAP PO ×3 (07:47→20:56)
[2021-09-12] MEDS: Magnesium Chloride 64 MG TABCR 128 MG PO ×2 (07:47→20:57)
[2021-09-12] MEDS: DULoxetine 30 MG CAP 60 MG PO (07:47)
[2021-09-12] MEDS: Multivitamin TAB 1 TAB PO (07:48)
[2021-09-12] MEDS: Protein Nutritional Supplement 16 GM 1 OUNCE PACKET PO ×3 (07:48→20:57)
[2021-09-12] MEDS: Senna TAB 2 TAB PO ×2 (07:48→20:57)
[2021-09-12] MEDS: Pantoprazole 40 MG TABCR PO (07:48)
[2021-09-12] MEDS: Polyethylene Glycol 3350 17 GM PACKET PO (07:48)
[2021-09-12] MEDS: Normal Saline Flush 10 ML SYR IVP ×2 (07:48→20:57)
--- NOTE | 2021-09-12 08:57 | CMPROGNOTE_ITS ---
- If Service Date Differs Date of service: 09/12/21 Time of Service: 08:57 Care Management Progress Note S/O: Favio remains in isolation, due to his covid diagnosis. CM was unable to meet with him in person and was unable to reach him via phone. Per provider he continues to do well on room air and does not require supplemental O2. He was discharged from yesterday, since he returned to baseline function. He transitioned to oral Diflucan yesterday. Referral's are still pending at [facility]. A: Bruce is a 56 year old male admitted to [facility] on 09/01/21 with a UTI. P: Favio's caregiver Nicki is no longing willing to care for him, Favio will likely need placement in a SNF. 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 Referrals have been sent to [facility] in [place] and [facility] as these facilities have received special state funding. Efforts to transfer Favio are on hold at the moment because of the Covid infection. Since Favio is growing yeast in blood and urine, he will likely remain acute for some time. CM will continue to support Favio and to assess for additional discharge needs.
[2021-09-12 09:41] LABS: D-Dimer 2398 ng/mlFEU (<500)
[2021-09-12] MEDS: Enoxaparin 40 MG/0.4 ML SYR SC (12:32)
--- NOTE | 2021-09-12 16:10 | PGE_ITS ---
Date of Service Date of service: 09/12/21 Time of Service: 16:10 Assessment and Plan Assessment and plan (1) COVID-19: Status: Acute Assessment and plan: Continues to do well on RA. S/p MAB. Not requiring O2. Work with IS. Cannot use Acapella d/t inability to mount adequate expiratory pressure. Cont supplementation with vitamin C & D. Trend inflammatory markers. D-dimer had increased modestly but trending down again. CRP decreased. (2) Sepsis: Status: Resolved Assessment and plan: Due to UTI/Fungemia, present on admission. Cx grew Lisa Parapsilosis, susceptible to fluconazole. Change to oral Diflucan. Planning 14 days total of Diflucan. Repeat blood cx are negative and no evidence of endocarditis on TTE. (3) Fungemia: Status: Acute Assessment and plan: As above. Repeat blood cultures negative Continue fluconazole. Echo with no evidence of vegetation. (4) RLL pneumonia: Status: Acute Assessment and plan: RLL pneumonia is actually likely due to COVID-19. Procalcitonin is negative. Previous antibiotics were d/c'd earlier. (5) UTI (urinary tract infection): Status: Acute Assessment and plan: As above Qualifiers: Urinary tract infection type: catheter-associated UTI Indwelling urinary catheter type: indwelling urethral catheter Encounter type: initial encounter Qualified Code(s): T83.511A - Infection and inflammatory reaction due to indwelling urethral catheter, initial encounter; N39.0 - Urinary tract infection, site not specified (6) DIAMOND (acute kidney injury): Status: Resolved Assessment and plan: Due to dehydration vs daptomycin. Daptomycin d/c'ed (wound cx were negative). DIAMOND resolved. (7) Indwelling catheter replaced: Status: Resolved Assessment and plan: suprapubic catheter replaced in the ED (8) Chronic recurrent multifocal osteomyelitis: Status: Chronic Assessment and plan: Wound cx negative. D/c all abx and monitor closely. Followed by [facility] wound care - appointment recently rescheduled. (9) DVT prophylaxis: Status: Acute Assessment and plan: SC enoxaparin (10) Discharge planning issues: Status: Acute Assessment and plan: Will possibly need swing level stay for IV antibiotics and nursing care for wounds. Subjective Subjective Patient reports: no new complaints, tolerating a regular diet, afebrile and other; denies nausea and vomiting Interval history since last seen: Cough improved; no sputum expectorated. Exam Const General: cooperative, no acute distress and well groomed Resp Effort & Inspection: normal respiratory effort Auscultation: rhonchi Cardio Rate: regular rate Rhythm: regular rhythm Heart Sounds: S1 normal and S2 normal GI Palpation: soft and nontender Extrem General: no calf tenderness and other (R ankle and foot with dressing in place. LLE w/o edema.) Psych Speech and Movement: speech clear Mood: congruent mood Affect: blunted Objective Last Vital Signs Temp 36.2 C L 09/11/21 21:11 Pulse 63 09/11/21 21:11 Resp 16 09/11/21 21:11 BP 150/89 H 09/11/21 21:11 Pulse Ox 92 09/11/21 21:11 Laboratory Results - last 24 hr 09/12/21 08:15 D-Dimer 2398 H
[2021-09-12 21:16] VITALS: BP 117/72; PULSE 78; RESP 16; TEMP 36; O2SAT 94
[2021-09-12] MEDS: Mirtazapine 15 MG TAB 7.5 MG PO (23:13)
[2021-09-13 07:33] LABS: D-Dimer 2469 ng/mlFEU (<500)
--- NOTE | 2021-09-13 08:30 | PCPN_ITS ---
Date of service: 09/12/21 Time of Service: 17:30 Assessment and Plan Assessment and plan (1) COVID-19: Status: Acute (2) RLL pneumonia: Status: Acute (3) Chronic recurrent multifocal osteomyelitis: Status: Chronic (4) Palliative care encounter: Status: Acute Assessment and plan: Favio is a 56-year-old man with quadriplegia and recent diagnosis of COVID-19. His mood today seemed good. We did not talk about advanced care planning at today's meeting. Despite his high risk for complications he seems to be weathering COVID-19 well. He is not having any of the sequelae associated such as shortness of breath lowering sats etc. Hopefully placement will be found for Favio in the near future. He knows he cannot go back to [facility]. Subjective Subjective Patient reports: no new complaints, tolerating a regular diet and afebrile Interval history since last seen: Favio is a 56-year-old man who 11 months ago fell and became a quadriplegic. I have been following him since January and palliative care. He Thursday was found to be Covid positive. He is now in a Covid room. He has not had any increase in shortness of breath, nausea, fever. He feels fine. None of his family or contacts have been diagnosed with Covid. He states that he is in a pretty good mood. It is a little bit more boring than usual due to the isolation. Exam Narrative Exam Narrative: Favio is in an exceptionally good mood. He did share with me a video of him cutting down a tree. 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 He was animated and proud of his skills. He is talking in complete sentences, actually paragraphs. No difficulty with shortness of breath Objective Last Vital Signs Temp 96.8 F L 09/12/21 21:16 Pulse 78 09/12/21 21:16 Resp 16 09/12/21 21:16 BP 117/72 09/12/21 21:16 Pulse Ox 94 09/12/21 21:16 Laboratory Results - last 24 hr 09/12/21 09/13/21 08:15 06:06 D-Dimer 2398 H 2469 H
--- NOTE | 2021-09-13 08:44 | CMPROGNOTE_ITS ---
- If Service Date Differs Date of service: 09/13/21 Time of Service: 08:44 Care Management Progress Note S/O: Favio remains in isolation, due to his covid diagnosis. CM was unable to meet with him in person and was unable to reach him via phone. Per provider, he is doing well. He is now on oral fluconazole for the katarina infections in his blood and urine. He is afebrile, his vital signs are stable and he is saturating at 97% on room air. The one new area of concern identified by the provider is the lack of output from his ostomy today. An abdominal Xray was ordered and completed but has not resulted yet. A: Bruce is a 56 year old male admitted to [facility] on 09/01/21 with a UTI. P: Favio's caregiver Nicki is no longing willing to care for him, Favio will likely need placement in a SNF. His intermediate Medicaid application has still not been approved so this will likely be a barrier. Referrals have been sent to [facility] in [place] and [facility] as these facilities have received special state funding. Efforts to transfer Favio are on hold at the moment because of the Covid infection. Since Favio is growing yeast in blood and urine, he will likely remain acute for some time. CM will continue to support Favoi and to assess for additional discharge needs.
[2021-09-13 08:45] LABS: C-Reactive Protein 3.39 mg/dL (0.0-0.3)
[2021-09-13] MEDS: Benzonatate 100 MG CAP PO ×3 (09:01→20:03)
[2021-09-13] MEDS: amLODIPine 10 MG TAB PO (09:01)
[2021-09-13] MEDS: diazePAM 2 MG TAB PO ×3 (09:01→20:02)
[2021-09-13] MEDS: Cholecalciferol (Vitamin D3) 1,000 UNIT TAB 2000 UNITS PO (09:01)
[2021-09-13] MEDS: DULoxetine 30 MG CAP 60 MG PO (09:01)
[2021-09-13] MEDS: Docusate Sodium 100 MG CAP PO ×3 (09:01→20:02)
[2021-09-13] MEDS: Ascorbic Acid 500 MG TAB 1000 MG PO ×2 (09:01→20:02)
[2021-09-13] MEDS: Fluconazole 100 MG TAB 200 MG PO (09:02)
[2021-09-13] MEDS: Magnesium Chloride 64 MG TABCR 128 MG PO ×2 (09:02→20:02)
[2021-09-13] MEDS: Multivitamin TAB 1 TAB PO (09:02)
[2021-09-13] MEDS: Pantoprazole 40 MG TABCR PO (09:02)
[2021-09-13] MEDS: Lactobacillus Acidophilus CAP 1 CAP PO ×3 (09:02→20:02)
[2021-09-13] MEDS: Normal Saline Flush 10 ML SYR IVP ×2 (09:02→20:01)
[2021-09-13] MEDS: guaiFENesin 600 MG TABCR PO ×2 (09:02→20:02)
[2021-09-13] MEDS: Protein Nutritional Supplement 16 GM 1 OUNCE PACKET PO ×3 (09:03→20:02)
[2021-09-13] MEDS: Senna TAB 2 TAB PO ×2 (09:03→20:02)
[2021-09-13] MEDS: Polyethylene Glycol 3350 17 GM PACKET PO (09:03)
[2021-09-13 09:05] VITALS: BP 106/67; PULSE 81; RESP 14; TEMP 35.6; O2SAT 97
[2021-09-13 09:38] LABS: C-Reactive Protein 4.58 mg/dL (0.0-0.3)
[2021-09-13 11:18] VITALS: O2SAT 97
[2021-09-13] MEDS: Enoxaparin 40 MG/0.4 ML SYR SC (11:54)
--- NOTE | 2021-09-13 14:43 | W.PM.PROGNOT ---
Date of Service Date of service: 09/13/21 Time of Service: 14:43 Assessment and Plan Assessment and plan (1) COVID-19: Status: Acute Assessment and plan: Continues to do well on RA. S/p MAB. Not requiring O2. Work with IS. Cannot use Acapella d/t inability to mount adequate expiratory pressure. Cont supplementation with vitamin C & D. Trend inflammatory markers. D-dimer essentially remains elevated / stable. CRP decreased. (2) Sepsis: Status: Resolved Assessment and plan: Due to UTI/Fungemia, present on admission. Cx grew Lisa Parapsilosis, susceptible to fluconazole. Change to oral Diflucan. Planning 14 days total of Diflucan. Repeat blood cx are negative and no evidence of endocarditis on TTE. (3) Fungemia: Status: Acute Assessment and plan: As above. Repeat blood cultures negative Continue fluconazole. Echo with no evidence of vegetation. (4) RLL pneumonia: Status: Acute Assessment and plan: RLL pneumonia is actually likely due to COVID-19. Procalcitonin is negative. Previous antibiotics were d/c'd earlier. (5) UTI (urinary tract infection): Status: Acute Assessment and plan: As above Qualifiers: Urinary tract infection type: catheter-associated UTI Indwelling urinary catheter type: indwelling urethral catheter Encounter type: initial encounter Qualified Code(s): T83.511A - Infection and inflammatory reaction due to indwelling urethral catheter, initial encounter; N39.0 - Urinary tract infection, site not specified (6) DIAMOND (acute kidney injury): Status: Resolved Assessment and plan: Due to dehydration vs daptomycin. Daptomycin d/c'ed (wound cx were negative). DIAMOND resolved. (7) Indwelling catheter replaced: Status: Resolved Assessment and plan: suprapubic catheter replaced in the ED (8) Chronic recurrent multifocal osteomyelitis: Status: Chronic Assessment and plan: Wound cx negative. D/c all abx and monitor closely. [place] [facility] [place] appointment recently rescheduled. (9) DVT prophylaxis: Status: Acute Assessment and plan: SC enoxaparin (10) Discharge planning issues: Status: Acute Assessment and plan: Will possibly need swing level stay for IV antibiotics and nursing care for wounds. (11) Constipation due to neurogenic bowel: Status: Acute Assessment and plan: Normal ostomy output yesterday but none today. Abd xr pending. M.O.M ordered. Subjective Subjective Patient reports: no new complaints and afebrile; denies nausea, vomiting and shortness of breath Interval history since last seen: No output in ostomy bag today. Exam Narrative Exam Narrative: Intermittent weak, coarse cough noted. Const General: cooperative, no acute distress and well groomed Resp Effort & Inspection: normal respiratory effort Auscultation: rhonchi upper bilaterally Cardio Rate: regular rate Rhythm: regular rhythm Heart Sounds: S1 normal and S2 normal GI Inspection: distended (mild.) Palpation: soft and nontender Extrem General: no calf tenderness and other (R ankle and foot with dressing in place. LLE w/o edema.) Psych Speech and Movement: speech clear Mood: congruent mood Affect: blunted Objective Last Vital Signs Temp 35.6 C L 09/13/21 09:05 Pulse 81 09/13/21 09:05 Resp 14 09/13/21 09:05 BP 106/67 09/13/21 09:05 Pulse Ox 97 09/13/21 11:18 Laboratory Results - last 24 hr 09/12/21 09/13/21 09/13/21 08:15 06:06 06:06 D-Dimer 2469 H C-Reactive Protein 4.58 H 3.39 H
[2021-09-13] MEDS: Milk of Magnesia 30 ML CUP (14:45)
--- NOTE | 2021-09-13 15:13 | DI.RAD_ITS ---
Exam(s) XR ABDOMEN FLAT PLATE EXAM: XR ABDOMEN FLAT PLATE CLINICAL HISTORY: no ostomy output today TECHNIQUE: COMPARISON: CR XR ABDOMEN FLAT PLATE from 04/03/2021 FINDINGS: Three views were obtained. There may be a few mildly dilated small bowel loops in the mid abdomen. Minimal ???thumbprinting ???appears to be present on a couple of these small bowel loops. There is a moderate amount of fecal material in the colon. No gross free intraperitoneal air seen on these cerda pine images. IMPRESSION: Nonspecific bowel gas pattern may represent ileus with possible small bowel wall thickening present. No gross obstruction this time. Appropriate follow-up films requested. RADIATION DOSE DELIVERED: Total DLP
[2021-09-13 20:20] VITALS: BP 125/70; PULSE 72; RESP 16; TEMP 36.2; O2SAT 95
[2021-09-13 20:30] VITALS: O2SAT 95
[2021-09-13] MEDS: Mirtazapine 15 MG TAB 7.5 MG PO (23:11)
[2021-09-13 23:19] VITALS: BP 131/81; PULSE 77; RESP 16; TEMP 36.2; O2SAT 95
[2021-09-14 07:45] LABS: HCT 32.3 % (40.0-50.0); HGB 10.4 g/dL (13.5-17.5); MCH 28.7 pg (27.0-33.0); MCHC 32.2 % (32.0-36.0); MPV 9.9 fL (8.0-11.0); Platelet Count 323 10^3/uL (130-400); RBC 3.63 10^6/uL (4.36-5.78); RDW-SD 42.4 fL; WBC 6.71 10^3/uL (4.4-10.8)
[2021-09-14 07:54] LABS: C-Reactive Protein 3.47 mg/dL (0.0-0.3)
[2021-09-14 08:21] LABS: D-Dimer 2072 ng/mlFEU (<500)
[2021-09-14] MEDS: Benzonatate 100 MG CAP PO ×3 (09:07→20:47)
[2021-09-14] MEDS: Ascorbic Acid 500 MG TAB 1000 MG PO ×2 (09:07→20:47)
[2021-09-14] MEDS: amLODIPine 10 MG TAB PO (09:07)
[2021-09-14] MEDS: Fluconazole 100 MG TAB 200 MG PO (09:08)
[2021-09-14] MEDS: Docusate Sodium 100 MG CAP PO ×3 (09:08→20:48)
[2021-09-14] MEDS: diazePAM 2 MG TAB PO ×3 (09:08→20:47)
[2021-09-14] MEDS: Lactobacillus Acidophilus CAP 1 CAP PO ×3 (09:08→20:48)
[2021-09-14] MEDS: Cholecalciferol (Vitamin D3) 1,000 UNIT TAB 2000 UNITS PO (09:08)
[2021-09-14] MEDS: guaiFENesin 600 MG TABCR PO ×2 (09:08→20:47)
[2021-09-14] MEDS: DULoxetine 30 MG CAP 60 MG PO (09:08)
[2021-09-14] MEDS: Pantoprazole 40 MG TABCR PO (09:09)
[2021-09-14] MEDS: Polyethylene Glycol 3350 17 GM PACKET PO (09:09)
[2021-09-14] MEDS: Magnesium Chloride 64 MG TABCR 128 MG PO ×2 (09:09→20:47)
[2021-09-14] MEDS: Normal Saline Flush 10 ML SYR IVP ×2 (09:09→20:49)
[2021-09-14] MEDS: Protein Nutritional Supplement 16 GM 1 OUNCE PACKET PO ×3 (09:09→20:48)
[2021-09-14] MEDS: Multivitamin TAB 1 TAB PO (09:09)
[2021-09-14] MEDS: Senna TAB 2 TAB PO ×2 (09:10→20:48)
[2021-09-14 09:11] VITALS: BP 106/73; PULSE 88; RESP 14; TEMP 35.4; O2SAT 94
[2021-09-14 11:01] VITALS: O2SAT 94
[2021-09-14] MEDS: Enoxaparin 40 MG/0.4 ML SYR SC (13:01)
--- NOTE | 2021-09-14 14:50 | PGE_ITS ---
Date of Service Date of service: 09/14/21 Time of Service: 14:50 Assessment and Plan Assessment and plan (1) COVID-19: Status: Acute Assessment and plan: Continues to do well on RA. S/p MAB. Not requiring O2. Work with IS. Cannot use Acapella d/t inability to mount adequate expiratory pressure. Cont supplementation with vitamin C & D. Trend inflammatory markers. D-dimer essentially remains elevated / stable at 2072. CRP decreased to 3.47 (2) RLL pneumonia: Status: Acute Assessment and plan: RLL pneumonia is actually likely due to COVID-19. Procalcitonin is negative. Previous antibiotics were d/c'd earlier. (3) Chronic recurrent multifocal osteomyelitis: Status: Chronic Assessment and plan: Wound cx negative. D/c all abx and monitor closely. Followed by [facility] [place] wound care - appointment recently rescheduled. (4) Palliative care encounter: Status: Acute Assessment and plan: palliative care is following patient. Patient remains hospitalized for treatment of his fungemia. He completed monoclonal antibody treatment for his COVID-19 pneumonia and remains on room air. He knows that he can not return to [facility]'s home. Placement will be an issue. (5) Fungemia: Status: Acute Assessment and plan: patient completed 8 days of iv fluconazole and now is on day #4 of oral fluconazole. he should complete through 09/17 (two weeks from clearance of his fungemia. first negative blood culture was on 09/03). Echocardiogram (TTE) from 09/04 showed no vegetations on his valve and he has normal LV function. (6) Acute UTI: Status: Acute Assessment and plan: secondary to fungal UTI. currently on oral fluconazole. see above (7) Indwelling catheter replaced: Status: Resolved Assessment and plan: suprapubic catheter was replaced on admission when he presented w/ sepsis. (8) Constipation due to neurogenic bowel: Status: Acute Assessment and plan: patient reports that he is having normal output from his ostomy. output yesterday measured 1025 mL. 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 CM is working on placement. His having had COVID-19 complicates matters. He needs to be in isolation for 10 to 14 days prior to any SNF considering him. He is currently asymptomatic from his COVID pneumonia and he completed his monoclonal antibodies. Subjective Subjective Interval history since last seen: Favio offers no new complaints or concerns. He denies any nausea or vomiting. He is tolerating his diet well. He has no dyspnea or chest discomfort or abdominal discomfort. Exam Narrative Exam Narrative: Middle-aged paraplegic male sitting up in bed watching show on his computer. He does use his hands to hold on to a computer pen to operate his computer. He is alert and oriented person place time circumstance Lungs are clear to auscultation Heart is regular rate and rhythm Abdomen soft nontender nondistended. Colostomy is in place in the left lower quadrant and is intact without erythema or induration Objective Last Vital Signs Temp 35.4 C L 09/14/21 09:11 Pulse 88 09/14/21 09:11 Resp 14 09/14/21 09:11 BP 106/73 09/14/21 09:11 Pulse Ox 94 09/14/21 11:01 Laboratory Results - last 24 hr 09/14/21 09/14/21 09/14/21 07:07 07:07 07:07 WBC 6.71 RBC 3.63 L Hgb 10.4 L Hct 32.3 L MCV 89.0 MCH 28.7 MCHC 32.2 RDW 13.0 Plt Count 323 MPV 9.9 D-Dimer 2072 H C-Reactive Protein 3.47 H
[2021-09-14 18:42] VITALS: BP 148/91; PULSE 77; RESP 12; TEMP 35.3; O2SAT 97
[2021-09-14 20:50] VITALS: RESP 16; O2SAT 94
[2021-09-14] MEDS: Mirtazapine 15 MG TAB 7.5 MG PO (21:05)
[2021-09-14 21:10] VITALS: BP 119/70; PULSE 75; RESP 16; TEMP 36.3; O2SAT 94
[2021-09-15 00:20] VITALS: BP 115/60; PULSE 72; RESP 15; TEMP 36.3; O2SAT 95
[2021-09-15] MEDS: Normal Saline Flush 10 ML SYR IVP ×2 (08:48→21:17)
[2021-09-15] MEDS: Senna TAB 2 TAB PO ×2 (08:49→21:18)
[2021-09-15] MEDS: Polyethylene Glycol 3350 17 GM PACKET PO (08:49)
[2021-09-15] MEDS: Protein Nutritional Supplement 16 GM 1 OUNCE PACKET PO ×3 (08:49→21:17)
[2021-09-15] MEDS: Ascorbic Acid 500 MG TAB 1000 MG PO ×2 (08:49→21:19)
[2021-09-15] MEDS: Benzonatate 100 MG CAP PO ×3 (08:50→21:18)
[2021-09-15] MEDS: DULoxetine 30 MG CAP 60 MG PO (08:50)
[2021-09-15] MEDS: Pantoprazole 40 MG TABCR PO (08:50)
[2021-09-15] MEDS: Lactobacillus Acidophilus CAP 1 CAP PO ×3 (08:50→21:19)
[2021-09-15] MEDS: Fluconazole 100 MG TAB 200 MG PO (08:50)
[2021-09-15] MEDS: amLODIPine 10 MG TAB PO (08:50)
[2021-09-15] MEDS: Multivitamin TAB 1 TAB PO (08:51)
[2021-09-15] MEDS: guaiFENesin 600 MG TABCR PO ×2 (08:51→21:18)
[2021-09-15] MEDS: Magnesium Chloride 64 MG TABCR 128 MG PO ×2 (08:51→21:18)
[2021-09-15] MEDS: Cholecalciferol (Vitamin D3) 1,000 UNIT TAB 2000 UNITS PO (08:51)
[2021-09-15] MEDS: diazePAM 2 MG TAB PO ×3 (08:51→21:19)
[2021-09-15] MEDS: Docusate Sodium 100 MG CAP PO ×3 (08:52→21:19)
[2021-09-15 09:00] VITALS: BP 110/71; PULSE 87; RESP 16; TEMP 37; O2SAT 92
[2021-09-15] MEDS: Enoxaparin 40 MG/0.4 ML SYR SC (13:16)
--- NOTE | 2021-09-15 16:40 | W.PM.PROGNOT ---
Date of Service Date of service: 09/15/21 Time of Service: 16:40 Assessment and Plan Assessment and plan (1) COVID-19: Status: Acute Assessment and plan: Continues to do well on RA. S/p MAB. Not requiring O2. Work with IS. Cannot use Acapella d/t inability to mount adequate expiratory pressure. Cont supplementation with vitamin C & D. Trend inflammatory markers. D-dimer essentially remains unchanged. remains on enoxaparin for DVT prophylaxis (2) RLL pneumonia: Status: Acute Assessment and plan: RLL pneumonia is actually likely due to COVID-19. Procalcitonin is negative. Previous antibiotics were d/c'd earlier. (3) Chronic recurrent multifocal osteomyelitis: Status: Chronic Assessment and plan: Wound cx negative. monitor closely. wound examined today w/ nursing. Followed by [facility] [place] wound care - appointment recently rescheduled. (4) Fungemia: Status: Acute Assessment and plan: patient completed 8 days of iv fluconazole and now is on day #5 of oral fluconazole. he should complete through 09/17 (two weeks from clearance of his fungemia. first negative blood culture was on 09/03). Echocardiogram (TTE) from 09/04 showed no vegetations on his valve and he has normal LV function. (5) Acute UTI: Status: Acute Assessment and plan: secondary to fungal UTI. currently on oral fluconazole. see above (6) Indwelling catheter replaced: Status: Resolved Assessment and plan: suprapubic catheter was replaced on admission when he presented w/ sepsis. (7) Constipation due to neurogenic bowel: Status: Acute Assessment and plan: patient w/ normal ostomy output today (8) DVT prophylaxis: Status: Acute Assessment and plan: enoxeparin 40 mg SC daily (9) Discharge planning issues: Status: Acute Assessment and plan: likely will need SNF for detention care. CM is working on placement. His having had COVID-19 complicates matters. He needs to be in isolation for 10 to 14 days prior to any SNF considering him. He is currently asymptomatic from his COVID pneumonia and he completed his monoclonal antibodies. I spoke w/ CM today about putting Favio on swing bed status and she indicated that we could do this tomorrow. Subjective Subjective Patient reports: no new complaints and bowel movement; denies nausea and shortness of breath Exam Narrative Exam Narrative: Patient seems depressed although he denies this. He is not engaged in conversation w/ me. He is currently having his sacral decubiti wounds being cleaned by nursing and they do no appear purulent. He has granulation tissue around the edges and the wounds appear pink although the base of the wounds have a white fibrinous appearance Lungs: clear Heart: RRR Abdomen: soft, nontender, colostomy draining light brown semiformed stool Objective Last Vital Signs Temp 37.0 C 09/15/21 09:00 Pulse 87 09/15/21 09:00 Resp 16 09/15/21 09:00 BP 110/71 09/15/21 09:00 Pulse Ox 92 09/15/21 09:00
[2021-09-15 18:29] VITALS: BP 103/57; PULSE 81; RESP 16; TEMP 37.2; O2SAT 92
--- NOTE | 2021-09-15 19:57 | W.PALPGNOTE ---
Date of service: 09/15/21 Time of Service: 18:57 Assessment and Plan Assessment and plan (1) COVID-19: Status: Acute (2) RLL pneumonia: Status: Acute (3) Palliative care encounter: Status: Acute Assessment and plan: He is doing remarkably well through his Covid infection. He is asymptomatic and I expect him to stay so Wounds?he does have osteomyelitis and will need suppressive therapy for the rest of his life Oxygen saturations doing well Mood?he is confronting the reality of his future. I realize it in the past there were concerns with Favio and his medications causing his confusion etc. He has on considerably less at this point. The one thing that he requested was medication to help with sleep. He states that he lays there often and cannot sleep. This is very distressing to him. He states that the thing that worked the best was Ativan. I would recommend that he be restarted on lorazepam 1 mg nightly We did talk about increasing his antidepressant or possibly a mood stabilizer. I think doing 1 medication at a time makes sense Another small but important thing is that I think that staff should knock on the door stick their head in and asked permission to come into the room. I realize that this is a small thing but it gives Favio control when he has very little control in his life Favio and I also talked about writing a statement which says that he does not want to return to the hospital. He will most likely be sent to an institution such as a residential where they may be uncomfortable with keeping him in the institution should he become septic. I offered to help him to write a statement so that his wishes could be followed in the future. We also touched on briefly that he may want to discontinue some of his meds if he feels like he was moving in that direction. He is thinking about all of this Subjective Subjective Interval history since last seen: I am seeing Favio in his isolation room due to COVID-19. He has had a lot of time to think because of lack of visitors and less traffic in his room. He states that his breathing is fine. He has not experienced any sequelae from the COVID-19. Both staff, hospitalist and others remarked about how down he was today. They felt that he had more time to think about his present and future, none of which looks good at the present. Placement will start after he finishes his 10 to 14-day quarantine from [facility]. Can no longer return to Nicki's house per hospitalist he will probably go on swing bed tomorrow. Favio had 2 focuses of his annoyance. The first is that people come marching into his room at any time. It is nice to have the company but at the same time he feels out of control of the who and when staff comes into the room The other is the reality of his situation at this time. He stated emphatically that he was not coming back to the hospital after he was discharged. We did talk about what he would do if he got really sick like he did this time. He understands that he will most likely get sick in the future but he was adamant that he was not going to come back to the hospital. Exam Const General: cooperative and no acute distress Nutritional Appearance: average body habitus Orientation: oriented x3 Resp Effort & Inspection: normal respiratory effort and able to speak in complete sentences Cardio Rate: regular rate Psych Appearance: well kempt Speech and Movement: speech clear Affect: sad and irritable affect Attitude: cooperative Thought Process: normal Thought Content: normal Insight: insight good Judgment: judgment good Objective Last Vital Signs Temp 99.0 F 09/15/21 18:29 Pulse 81 09/15/21 18:29 Resp 16 09/15/21 18:29 BP 103/57 L 09/15/21 18:29 Pulse Ox 92 09/15/21 18:29
[2021-09-15 20:20] VITALS: BP 107/72; PULSE 75; RESP 16; TEMP 37.2; O2SAT 95
[2021-09-15] MEDS: Mirtazapine 15 MG TAB 7.5 MG PO (21:18)
[2021-09-15 21:20] VITALS: O2SAT 95
[2021-09-16 00:18] VITALS: BP 109/73; PULSE 80; RESP 16; TEMP 37; O2SAT 94
[2021-09-16 07:16] LABS: HCT 34.9 % (40.0-50.0); MCHC 31.5 % (32.0-36.0); MCV 88.8 fL (80-95); MPV 9.9 fL (8.0-11.0); Platelet Count 362 10^3/uL (130-400); RBC 3.93 10^6/uL (4.36-5.78); RDW 13.3 % (11.8-14.1); RDW-SD 43.5 fL; WBC 9.06 10^3/uL (4.4-10.8)
[2021-09-16] MEDS: Protein Nutritional Supplement 16 GM 1 OUNCE PACKET PO (08:29)
[2021-09-16] MEDS: Polyethylene Glycol 3350 17 GM PACKET PO (08:29)
[2021-09-16] MEDS: guaiFENesin 600 MG TABCR PO (08:30)
[2021-09-16] MEDS: Benzonatate 100 MG CAP PO (08:30)
[2021-09-16] MEDS: DULoxetine 30 MG CAP 60 MG PO (08:30)
[2021-09-16] MEDS: Multivitamin TAB 1 TAB PO (08:30)
[2021-09-16] MEDS: diazePAM 2 MG TAB PO (08:30)
[2021-09-16] MEDS: Magnesium Chloride 64 MG TABCR 128 MG PO (08:30)
[2021-09-16] MEDS: Fluconazole 100 MG TAB 200 MG PO (08:31)
[2021-09-16] MEDS: Ascorbic Acid 500 MG TAB 1000 MG PO (08:31)
[2021-09-16] MEDS: amLODIPine 10 MG TAB PO (08:31)
[2021-09-16] MEDS: Cholecalciferol (Vitamin D3) 1,000 UNIT TAB 2000 UNITS PO (08:31)
[2021-09-16] MEDS: Lactobacillus Acidophilus CAP 1 CAP PO (08:31)
[2021-09-16] MEDS: Pantoprazole 40 MG TABCR PO (08:31)
[2021-09-16] MEDS: Normal Saline Flush 10 ML SYR IVP (08:32)
[2021-09-16] MEDS: Senna TAB 2 TAB PO (08:32)
[2021-09-16] MEDS: Docusate Sodium 100 MG CAP PO (08:32)
[2021-09-16 08:39] VITALS: BP 120/79; PULSE 77; RESP 16; TEMP 36.7; O2SAT 96
--- NOTE | 2021-09-16 09:16 | PDOC.CMPRO ---
- If Service Date Differs Date of service: 09/16/21 Time of Service: 09:16 Care Management Progress Note S/O: Favio remains in isolation, due to his covid diagnosis. CM was unable to meet with him in person. It is anticipated that his isolation will be discontinued on . Favio will be transitioned to SB-1 today. CM contacted [facility] [place] to confirm Favio's appointments for later in the week. On 09/19/21 he has an appointment with ID at 12:45 pm. On the same day he has an appointment at the [facility] at 1:45 pm. Transportation was booked with [facility] [employer] with a fruit picker time of 11:30-11:40 am. A: Bruce is a 56 year old male admitted to [facility] on 09/01/21 with a UTI. P:Favio will likely need placement in a SNF when his long-term Medicaid application has been approved. So far, this has been a barrier to placement. Efforts to transfer Favio are on hold at the moment because of the Covid infection. Favio's IV antimicrobial treatments have been completed and he will be transitioned to SB-1 today. [facility] contacted [facility] [place] to confirm Favio's appointments for later in the week. On 09/19/21 he has an appointment with ID at 12:45 pm. On the same day he has an appointment at the Wound Center at 1:45 pm. Transportation was booked with [facility] [employer] with a fruit picker time of 11:30-11:40 am. CM will continue to support Favio and to assess for additional discharge needs. cc:
[2021-09-16 10:04] VITALS: O2SAT 95
--- NOTE | 2021-09-16 10:25 | W.PM.DS.N ---
Date of service: 09/16/21 Time of Service: 10:25 DS: Diagnosis Discharge Diagnosis (1) COVID-19: Status: Acute Asessment and Plan: patient had recent exposure at constitution party for his fundraising benefit in which he was exposed on 08/31. Patient presented to the hospital w/ sweats and chills but was afebrile on admission however he developed fever of 39.4 C on 09/04/2021. He was screened on admission for SARS-COV2 and his nasal swab was negative on admission but at that time he had no fever and no hypoxemia. he was retested for SARS-COV2 on 09/09 and was found to be positive. he was then given the monoclonal antibody combination of Casirivimab and Imdevimab on 09/09. His lowes SPO2 was briefly 91% on 09/04 but he never went on oxygen and the rest of his hospital stay his oxygen saturation remained in the mid to high 90's%. His chest xray on admission suggested a subtle RLL infiltrate for which subsequent chest xray has shown to have cleared. (2) RLL pneumonia: Status: Resolved Asessment and Plan: subtle RLL infiltrate which has resolved. Patient was initially treated w/ Ceftriaxone and Daptomycin but these were discontinued when his blood cultures showed no bacterial growth but grew Lisa parapsilosis and his urine cultures also grew yeast. Patient was put on iv Diflucan from 09/03 though 09/10 and his repeat blood cultures from 09/03, 09/04 and 09/05 did not grow any bacteria nor any yeast. Patient was transitioned to oral Fluconazole on 09/11 and for which he continues to take. he needs to complete 14 day therapy from the time of his first negative blood culture. i.e. 09/17. (3) Palliative care encounter: Status: Acute Asessment and Plan: patient was seen by Palliative care medicine. See their notes for details (4) DIAMOND (acute kidney injury): Status: Resolved Asessment and Plan: patient presented w/ normal creatinine of 1.0 on admission on 09/01 but his creatinine latrice to 1.6 on 09/08 at which time his daptomycin was stopped. his creatinine subsequently returned to normal at 0.5 on 09/09/2021 and has remained normal. (5) Constipation due to neurogenic bowel: Status: Acute Asessment and Plan: patient required disimpaction and is on a regular bowel regimen w/ stool softeners and laxatives and prn enemas. (6) Discharge planning issues: Status: Acute Asessment and Plan: allegedly according to CM the patient can not return to the home of the mother of his children, iNcki. However, Favio tells me that this is not true. He has indicated that he and Nicki have patched up their differences. CM had indicated that Favio will need permanent SNF placement and is awaiting approval of his permanent [place] Medicaid. (7) Fungemia: Status: Resolved Asessment and Plan: repeat blood cultures from 09/03, 09/04, and 09/05 have all been no growth while his first blood cultures and urine culture from 09/01 grew Lisa parapsilosis and he responded to iv fluconazole as noted above. Echocardiogram was performed on 09/04 and showed no vegetations. (8) Chronic recurrent multifocal osteomyelitis: Status: Chronic Asessment and Plan: wound care nurse was consulted for management and wound cultures were taken on 09/05 from both sacral decubiti and both had rare growth of normal skin daphne. (9) Indwelling catheter replaced: Status: Resolved Asessment and Plan: patient had an obstructed suprapubic catheter that had purulent material in it. Once the catheter was replaced he had good urine outflow w/ clearing of his urine. (10) Major depressive disorder: Status: Chronic Asessment and Plan: patient was kept on his home medicines of duloxetine 30 mg daily but was then increased to 60 mg daily (11) Acute UTI: Status: Resolved Asessment and Plan: patient found to have a fungal UTI treated w/ iv and then oral fluoconazole. see above under fungemia. Discharge Plan Disposition Patient Disposition: [facility] BED [facility]EV[facility] 1 Condition: Improving Discharge Details Reason For Visit: Urinary Tract Infection Admit Date/Time: 09/03/21 13:31 Admit Provider: Boo Olson Attending Provider: Boo Olson Primary Care Provider: Rayna Pino Home Meds and New Rx's Prescriptions: No Action acetaminophen 500 mg capsule 650 mg PO Q4H RF: 0 albuterol sulfate 90 mcg/actuation aerosol powdr breath activated 2 inh inhalation Q4H PRN PRNRF: 0 docusate sodium [Colace] 100 mg capsule 100 mg PO TID RF: 0 bisacodyl [Dulcolax (bisacodyl)] 10 mg suppository See Rx Instructions .ROUTE .COMPLEX PRNRF: 0 Lactobacillus acidoph-L.bulgar [Floranex] 1 million cell tablet 1 tab PO TID RF: 0 polyethylene glycol 3350 [Miralax] 17 gram/dose powder 17 g PO DAILY RF: 0 senna 8.6 mg capsule 17.2 mg PO BID RF: 0 ascorbic acid (vitamin C) 500 mg Tablet 1,000 mg PO BID RF: 0 amlodipine 10 mg Tablet 10 mg PO DAILY RF: 0 lidocaine 5 % Adhesive Patch,Medicated 2 patch TOPICAL DAILY RF: 0 multivitamin,tx-minerals Tablet 1 tab PO DAILY RF: 0 diazepam 2 mg Tablet 2 mg PO TID Qty: 20 RF: 0 mirtazapine 15 mg Tablet 7.5 mg PO HS Qty: 14 RF: 0 Santyl 250 unit/gram Ointment 0 g topical DAILY Qty: 1 RF: 0 magnesium chloride [Mag 64] 64 mg Tablet,Delayed Release (Dr/Ec) 128 mg PO BID Qty: 28 RF: 0 Bio-K plus 50 billion cell capsule,delayed release(DR/EC) 1 cap PO DAILY Qty: 14 RF: 0 ondansetron HCl [Zofran] 4 mg Tablet 4 mg PO Q8H PRNRF: 0 duloxetine 60 mg capsule,delayed release(DR/EC) 60 mg PO DAILY RF: 0 pantoprazole 40 mg Tablet,Delayed Release (Dr/Ec) 40 mg PO DAILY RF: 0 cholecalciferol (vitamin D3) 25 mcg (1,000 unit) tablet 2,000 units PO DAILY RF: 0 Discharge Instructions Instructions: COVID-19 (Coronavirus Disease 2019) (DC), COVID-19 and Chronic Health Conditions (DC) Activity:: Activity as Tolerated Equipment/Supplies:: No Equipment Needed Diet:: Normal Diet Discharge Orders Discharge Orders: Discharge Order (Routine); Ordered 09/16/21 Ordered By: Boo Olson Discharge Data Discharge Date/Time-TO BE ENTERED AT DEPARTURE: 09/16/21 13:10 DS: Summary Time Spent with Patient providing and/or coordinating discharge services: Greater than 30 minutes Status at Discharge Functional status at discharge: bed bound Overall status at discharge: patient is progressing back to baseline Mental Status: mental status grossly normal Speech and Movement: speech and movement normal Mood: other (depressed) Affect: indifferent Exam Narrative Exam Narrative: Patient seems depressed although he denies this. I was able to get him to engage in conversation w/me. He admits that he is discouraged w/ being in the hospital and would like to return home w/ Nicki. I asked him whether or not he is contemplating suicide and he denies this. I explained to him that I asked him this question out of concern from nursing that he had asked someone about how long it would take to if he were to stop eating. He did not deny saying this but indicated that he often will talk / about life goals and his discouragement over his frequent hospitalizations. I enouraged him to reach out to his providers and to not shut people out. He has an established psychologist and a tele health visit should be set up for him. Lungs: clear Heart: RRR Abdomen: soft, nontender, colostomy draining light brown semiformed stool Extremities w/out edema or skin breakdown. Psych Mental Status: mental status grossly normal Speech and Movement: speech and movement normal Affect: indifferent DS: Data Vitals/I&O Vitals and I&O: Vital Signs Temperature 36.7 C 09/16/21 08:39 Temperature Source Tympanic 09/16/21 08:39 Pulse 77 09/16/21 08:39 Pulse Rhythm Regular 09/16/21 08:40 Pulse 87 09/01/21 14:50 Respiratory Rate 16 09/16/21 08:39 Respiratory Effort Non-Labored 09/16/21 08:40 Respiratory Depth Normal 09/16/21 08:40 Respiratory Pattern Normal 09/16/21 08:40 Blood Pressure 120/79 09/16/21 08:39 Blood Pressure Mean 80 09/01/21 14:45 Blood Pressure Position Supine 09/01/21 12:06 Pulse Oximetry 95 09/16/21 10:04 Oxygen Delivery Method Room Air 09/16/21 10:04 Oxygen Flow Rate 0 09/16/21 10:04 Pain Level 0 09/16/21 10:06 Comment 09/16/21 08:39 Intake & Output 09/15/21 09/15/21 09/16/21 11:59 23:59 11:59 Intake Total 550 / 720 170 / 720 240 / 240 Output Total 330 / 1330 1000 / 1330 725 / 725 Balance 220 / -610 -830 / -610 -485 / -485 Intake: IV 20 / 20 Oral 550 / 700 150 / 700 240 / 240 Output: Urine 300 / 850 550 / 850 675 / 675 Stool 30 / 480 450 / 480 50 / 50 Other: Urine Color Straw Straw Yellow Urine Appearance Clear Clear Clear Data Completed and Pending Labs on day of discharge: Labs from last 24 hours 09/16/21 06:48 WBC 9.06 RBC 3.93 L Hgb 11.0 L Hct 34.9 L MCV 88.8 MCH 28.0 MCHC 31.5 L RDW 13.3 Plt Count 362 MPV 9.9 PFSH Active Problem List Constipation due to neurogenic bowel (Acute) COVID-19 (Acute) DVT prophylaxis (Acute) Discharge planning issues (Acute) RLL pneumonia (Acute) Fungemia (Acute) Sepsis (Acute) Acute UTI (Acute) Chronic recurrent multifocal osteomyelitis (Chronic) Palliative care encounter (Acute) S/P colostomy (Chronic) Acute osteomyelitis of sacrum (Chronic) Major depressive disorder (Chronic) Neurogenic bladder (Chronic) Quadriplegia (Chronic) Medical History Acute embolism and thrombosis of deep vein of right lower extremity Anxiety disorder Aspiration into airway C. difficile colitis Constipation Decubitus skin ulcer Decubitus ulcer of buttock, stage 4 Dislocation of C6/C7 cervical vertebrae DNR (do not resuscitate) DVT (deep venous thrombosis) DVT prophylaxis Encounter for wound care Fall down embankment Fusion of spine H/O deep venous thrombosis Hypokalemia Hypotension Ileus Iron deficiency anemia Large bowel obstruction Malnutrition following gastrointestinal surgery Neurogenic bowel Open wound of abdominal wall Palliative care patient Physician orders for life-sustaining treatment (POLST) form indicates patient wish for wh-aci-lwehugiylhw status Right arm pain Visit for wound check Social History Smoking/Tobacco Use Status: Never Smoking risk assessment performed?: Yes Alcohol Intake: former Drug use: Occasionally Substance use type: marijuana Do you feel safe at home: Yes Do you feel safe in your relationship?: Yes
[2021-09-16] MEDS: Enoxaparin 40 MG/0.4 ML SYR SC (12:35)
== END 2021-09-16 13:10 | disposition swing bed (61) | DRG 698 ==
LOC: ER 15:11 → MS 15:36
PROVIDERS: Family Medicine; Internal Medicine; Nurse Practitioner Acute Care; Admitting Provider Internal Medicine; Emergency Provider Physician Assistant; PCP Nurse Practitioner Family; Visit Provider Internal Medicine
DX: T83.510A Infection and inflammatory reaction due to cystostomy catheter, initial encounter (principal); U07.1 COVID-19; L89.324 Pressure ulcer of left buttock, stage 4; L89.314 Pressure ulcer of right buttock, stage 4; B37.7 Candidal sepsis; G82.50 Quadriplegia, unspecified; J12.82 Pneumonia due to coronavirus disease 2019; M86.38 Chronic multifocal osteomyelitis, other site; K59.2 Neurogenic bowel, not elsewhere classified; B37.49 Other urogenital candidiasis; B49 Unspecified mycosis; N17.9 Acute kidney failure, unspecified; S12.500S Unspecified displaced fracture of sixth cervical vertebra, sequela; S12.600S Unspecified displaced fracture of seventh cervical vertebra, sequela; Z93.3 Colostomy status; F32.A Depression, unspecified; Z86.718 Personal history of other venous thrombosis and embolism; F41.9 Anxiety disorder, unspecified; Z66 Do not resuscitate; E87.6 Hypokalemia; D50.9 Iron deficiency anemia, unspecified; N31.9 Neuromuscular dysfunction of bladder, unspecified; E86.0 Dehydration; K59.09 Other constipation
CPT/HCPCS: 36410; 36415; 51702; 76770; 80048; 80053; 80076; 82550; 84145; 85027; 85652; 87040; 87077; 87635; 96361; 96365; 97163; 97166; 99285; J1650; 71046; 74018; 81003; 81015; 82728; 83605; 83735; 84100; 85025; 85379; 86140; 87070; 87086; 87205; 93306; 99223; 99226; 99231; 99232; 99233; 99239; G0378; J0878; J1450; J3475; J3490

== ENCOUNTER 2021-09-16 12:51 | Inpatient (IN) | payer BC, MEDICAID, SELFPAY ==
--- NOTE | 2021-09-16 | DI.RAD_ITS ---
Exam(s) XR PORTABLE CHEST AP EXAM: XR PORTABLE CHEST AP CLINICAL HISTORY: cough TECHNIQUE: 2D digital imaging was performed. COMPARISON: No exams were available for comparison FINDINGS: LUNGS: Clear. No pleural abnormality seen. HEART: Normal. MEDIASTINUM: Normal. BONES: Posterior fusion at the cervical thoracic junction. IMPRESSION: No acute pulmonary findings. DATA REPOSITORY: RADIATION DOSE DELIVERED:
--- NOTE | 2021-09-16 12:55 | W.PM.HP.N ---
Date of service: 09/16/21 Time of Service: 12:55 Assessment and Plan Assessment and plan (1) Fungemia: Status: Resolved Assessment and plan: will complete his Diflucan on 09/17 (this is 14 days after his first negative blood culture). (2) COVID-19: Status: Acute Assessment and plan: patient was found to have SARS-COV2 from a constitution party he attended on 08/31. Initial nasal PCR on 09/01 was negative but when he ran fevers and his CXR showed a subtle RLL infiltrate he had repeat testing on 09/09 which was positive. he received monoclonal antibodies on 09/09. He never became hypoxemic and repeat CXR has shown resolution of his infiltrate. (3) Discharge planning issues: Status: Acute Assessment and plan: CM is working on disposition but referral to SNF is pending his receiving permanent [place] Medicaid for payor source. Favio seems to think that he can return to the home of [facility]. (4) Constipation due to neurogenic bowel: Status: Acute Assessment and plan: patient require a bowel regimen of regular stool softeners and laxatives w/ prn use of enemas and occasional disimpaction ( recently had to perform digital manipulation of his ostomy to stimulate BM). (5) Chronic recurrent multifocal osteomyelitis: Status: Chronic Assessment and plan: patient has two ischial open ulcers w/ chronic osteomyelitis for which he has been treated in the past w/ recurrent antibiotics. At present the wounds are slowly healing but willl probably never totally close without surgery. He is [place] [facility] [place] and locally by our [facility] wound care nurses. (6) S/P colostomy: Status: Chronic (7) Indwelling catheter replaced: Status: Resolved Assessment and plan: SPC is routinely changed monthly but d/t it being plugged and causing recent UTI it had to be changed out more frequently (8) Major depressive disorder: Status: Chronic Assessment and plan: currently on Duloxetine which was recently increased to 60 mg daily. He has a psychiatrist with whom he follows although Dr. Alfaro has seen him in the past for tele-psych visit Qualifiers: Major depression recurrence: single episode Active/Remission status: currently active Major depression episode severity: moderate Qualified Code(s): F32.1 - Major depressive disorder, single episode, moderate (9) Neurogenic bladder: Status: Chronic (10) Quadriplegia: Status: Chronic (11) DVT prophylaxis: Status: Acute Assessment and plan: cont. enoxaparin while hospitalized. History of Present Illness History of Present Illness Chief Complaint: depression Narrative: Patient is recovering from acute hospital stay for fungemia (Lisa parapsilosis) due to fungal UTI from obstructed SPC. Patient had 8 days of iv Diflucan and is now on oral Diflucan and due to complete this on 09/17 (14 days after his first negative blood culture). His echocardiogram showed normal LV and RV function w/ no vegetations on his valves. His antidepressant dose of Duloxetine has been increased to 60 mg daily. Because of his current living arrangements he could not immediately return home and because he is paraplegic, he was put in swing bed program until completion of his antifungal medicines and until a more permanant housing situation could be arranged. [place] Medicaid application has been made. There is some disagreement as to whether or not he is able to return to the care of Nicki, the mother of his children. [facility] has indicated that this is not an option while Favio seems to think that he and Nicki have patched things up. I will meet w/ Favio and with before and after school daycare worker to discuss this and will have a meeting set up w/ Nicki to find out what his home situation is like. Meanwhile, he should have a tele-health visit with his psychiatrist to discuss his depression. Review of Systems All systems reviewed & are unremarkable except as noted in HPI and below PFSH Active Problem List Constipation due to neurogenic bowel (Acute) COVID-19 (Acute) DVT prophylaxis (Acute) Discharge planning issues (Acute) RLL pneumonia (Acute) Fungemia (Acute) Sepsis (Acute) Acute UTI (Acute) Chronic recurrent multifocal osteomyelitis (Chronic) Palliative care encounter (Acute) S/P colostomy (Chronic) Acute osteomyelitis of sacrum (Chronic) Major depressive disorder (Chronic) Neurogenic bladder (Chronic) Quadriplegia (Chronic) Medical History Acute embolism and thrombosis of deep vein of right lower extremity Anxiety disorder Aspiration into airway C. difficile colitis Constipation Decubitus skin ulcer Decubitus ulcer of buttock, stage 4 Dislocation of C6/C7 cervical vertebrae DNR (do not resuscitate) DVT (deep venous thrombosis) DVT prophylaxis Encounter for wound care Fall down embankment Fusion of spine H/O deep venous thrombosis Hypokalemia Hypotension Ileus Iron deficiency anemia Large bowel obstruction Malnutrition following gastrointestinal surgery Neurogenic bowel Open wound of abdominal wall Palliative care patient Physician orders for life-sustaining treatment (POLST) form indicates patient wish for ib-dke-kowzncrdkde status Right arm pain Visit for wound check Social History Smoking/Tobacco Use Status: Never Smoking risk assessment performed?: Yes Alcohol Intake: former Drug use: Occasionally Substance use type: marijuana Do you feel safe at home: Yes Do you feel safe in your relationship?: Yes Meds Allergies and Home Medications Allergies Allergy/AdvReac Type Severity Reaction Status Date / Time No Known Allergies Allergy Unverified 09/01/21 12:15 Home Medications Medication Instructions Recorded Confirmed Type Lactobacillus acidoph-L.bulgaricus 1 tab PO TID tab 01/29/21 09/16/21 History 1 million cell tablet acetaminophen 500 mg capsule 650 mg PO Q4H cap 01/29/21 09/16/21 History albuterol sulfate 90 mcg/actuation 2 inh INHALATION Q4H PRN PRN 01/29/21 09/16/21 History breath activated powder inhaler bisacodyl 10 mg rectal suppository See Rx Instructions .ROUTE 01/29/21 08/12/21 History .COMPLEX PRN docusate sodium 100 mg capsule 100 mg PO TID 01/29/21 09/16/21 History polyethylene glycol 3350 17 17 g PO DAILY 01/29/21 09/16/21 History gram/dose oral powder sennosides 8.6 mg capsule 17.2 mg PO BID 01/29/21 09/16/21 History ondansetron HCl [Zofran] 4 mg PO Q8H PRN 02/20/21 09/16/21 History amlodipine 10 mg PO DAILY 04/10/21 09/16/21 History ascorbic acid (vitamin C) 1,000 mg PO BID 04/10/21 09/16/21 History lidocaine 2 patch TOPICAL DAILY 04/10/21 09/16/21 History multivitamin,tx-minerals 1 tab PO DAILY 04/10/21 09/16/21 History L. acidophilus,casei,rhamnosus 1 cap PO DAILY #14 cap 08/02/21 09/01/21 Rx [Bio-K plus] collagenase clostridium histo. 0 g TOPICAL DAILY #1 g 08/02/21 08/12/21 Rx [Santyl] diazepam 2 mg PO TID #20 tab 08/02/21 09/16/21 Rx magnesium chloride [Mag 64] 128 mg PO BID #28 tab 08/02/21 09/16/21 Rx mirtazapine 7.5 mg PO HS #14 tab 08/02/21 09/16/21 Rx duloxetine 60 mg PO DAILY 09/05/21 09/16/21 History cholecalciferol (vitamin D3) 2,000 units PO DAILY 09/16/21 09/16/21 History pantoprazole 40 mg PO DAILY 09/16/21 09/16/21 History Exam Narrative Exam Narrative: Patient seems depressed although he denies this. I was able to get him to engage in conversation w/me. He admits that he is discouraged w/ being in the hospital and would like to return home w/ Nicki. I asked him whether or not he is contemplating suicide and he denies this. I explained to him that I asked him this question out of concern from nursing that he had asked someone about how long it would take to if he were to stop eating. He did not deny saying this but indicated that he often will talk / about life goals and his discouragement over his frequent hospitalizations. I enouraged him to reach out to his providers and to not shut people out. He has an established psychologist and a tele health visit should be set up for him. Lungs: clear Heart: RRR Abdomen: soft, nontender, colostomy draining light brown semiformed stool Extremities w/out edema or skin breakdown. Psych Mental Status: mental status grossly normal Speech and Movement: speech and movement normal Affect: indifferent
[2021-09-16] MEDS: Lactobacillus Acidophilus CAP 1 CAP PO ×2 (14:42→22:00)
[2021-09-16] MEDS: diazePAM 2 MG TAB PO ×2 (14:42→21:59)
[2021-09-16] MEDS: Docusate Sodium 100 MG CAP PO ×2 (14:42→22:01)
[2021-09-16] MEDS: Protein Nutritional Supplement 16 GM 1 OUNCE PACKET PO ×2 (14:43→21:59)
[2021-09-16] MEDS: Benzonatate 100 MG CAP PO ×2 (14:43→22:00)
--- NOTE | 2021-09-16 17:55 | CMSA_ITS ---
- If Service Date Differs Date of service: 09/16/21 Time of Service: 17:55 SB Psychosocial/Act.Assessment - Hospital Admission Admission Date: 09/01/21 Admission From:: ED Diagnosis:: Uti - Swing Bed Admission Swing Bed Admit Date:: 09/16/21 Swing Bed Level of Care: Level 1/SNF - Social Supports PREVIOUS FUNCTIONAL STATUS/SOCIAL/FAMILY SUPPORTS:: Favio lives in a single family home in [place], [place] with his friend and caregiver, Nicki. Nicki's mother also resides in the home and Nicki cares for her as well. Favio has 2 children, a son and a daughter that are involved in his life. Favio is a quadriplegic and is on disability. In addition to Nicki, Favio has UROLOGY TEACHER services 3 times a week as well as nursing and PT through [facility]. He also has a paid caregiver 2 times a week. - Prior to Admission Living Arrangements/Environment Prior to Admission:: Faivo was living in [place] prior to this admission hoewever he will not be able to return there at this time. Placement will be sought elsewhere. The delay in acquiring intermediate accountant Medicaid continues to be a barrier to placement. 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 - Work History Employment Status:: currently disabled - : No [place]'s Spouse: No - Benefits Financial: SSI, Commerical - Judaism Active Restorationist Member:: No - Advance Directives for Healthcare Advance Directives for Healthcare: Durable Power of [employer] Faculty for Healthcare Advance Directive Agent: Daughter Luz Velasquez is DPOA - Interests Hobbies:: fishing Music:: rock Other Activities:: Favio watches movies and interacts with others on his Ipad - Present Functional Status Physical Abilities:: Favio is a quadriplegic with some limited movement in his hands Cognitive:: alert and oriented Communication:: good Sensory Systems: quadriplegic Behavior:: periods of anger and depression common - Medical History PAST MEDICAL HISTORY/PAST SURGICAL HISTORY:: Medical History . Acute embolism and thrombosis of deep vein of right lower extremity. Anxiety disorder. Aspiration into airway. C. difficile colitis. Constipation. Constipation due to neurogenic bowel. Decubitus skin ulcer. Decubitus ulcer of buttock, stage 4. Dislocation of C6/C7 cervical vertebrae. DNR (do not resuscitate). DVT (deep venous thrombosis). DVT prophylaxis. Encounter for wound care. Fall down embankment. Fusion of spine. H/O deep venous thrombosis. Hypokalemia. Hypotension. Ileus. Iron deficiency anemia. Large bowel obstruction. Major depressive disorder. Malnutrition following gastrointestinal surgery. Neurogenic bladder. Neurogenic bowel. Open wound of abdominal wall. Palliative care patient. Physician orders for life-sustaining treatment (POLST) form indicates patient wish for cl-ajh-mpulqtyoqvx status. Quadriplegia. Right arm pain. Visit for wound check. Surgical History . S/P colostomy General Health:: good prior to accident. now, frequent Utis, decubitus ulcers and chronic osteomyelitis Past Psychiatric Treatment:: has been seeing a psychiatrist since accident at least weekly - Admission Data Reason for Swing Bed Admission:: unable to find placement Discharge Plan:: Discharge plan unclear. Waiting for intermediate accountant Medicaid for payer source. Assessment: Favio is a 56 year old man who sustained a fall on 2019 that left him a quadriplegic. He has been institutionalized since except for about a month (August) when he was in a private home with caregivers. Unfortunatel, caregiver coverage was minimal and the living situation did not work out. He returned to [facility] on 09/01/21 with urosepsis and is unable to find placement. Seismograph Supervisor: Annette Loya Date Assessment was completed:: 09/16/21
--- NOTE | 2021-09-16 17:55 | CMPROGNOTE_ITS ---
- If Service Date Differs Date of service: 09/16/21 Time of Service: 17:55 Care Management Progress Note S/O: Favio remains in isolation, due to his covid diagnosis. CM was unable to meet with him in person. It is anticipated that his isolation will be discontinued on . Favio will be transitioned to SB-1 today. CM [place] [facility] [place]avio's appointments for later in the week. On 09/19/21 he has an appointment with ID at 12:45 pm. On the same day he has an appointment at the [facility] at 1:45 pm. Transportation was booked with [facility] by [facility] with a potato picker time of 11:30-11:40 am. A: Bruce is a 56 year old male admitted to [facility] on 09/01/21 with a UTI. P:Favio will likely need placement in a SNF when his long-term Medicaid application has been approved. So far, this has been a barrier to placement. Efforts to transfer Favio are on hold at the moment because of the Covid infection. Favio's IV antimicrobial treatments have been completed and he will be transitioned to SB-1 today. [facility] contacted [facility] [place] Favio's appointments for later in the week. On 09/19/21 he has an appointment with ID at 12:45 pm. On the same day he has an appointment at the Wound Center at 1:45 pm. Transportation was booked with [facility] by [facility] with a potato picker time of 11:30-11:40 am. CM will continue to support Favio and to assess for additional discharge needs.
--- NOTE | 2021-09-16 17:57 | CM.SWINGPC ---
- If Service Date Differs Date of service: 09/16/21 Time of Service: 17:57 Swingbed Plan of Care Plan of care: SWING BED PROGRAM ACTIVITIES/DISCHARGE PLAN OF CARE ACTIVITIES PLAN Date:09/16/21 Identified Need:Individualized activity plan Intervention/Plan: Favio uses his Ipad for movies, games and communication with friends and family. 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 Favio does enjoy visiting with family and friends and prior to being on Covid isolation, received visitors almost every day. In warmer weather he also enjoyed going outside with the help of nursing staff. He would enjoy pet therapy and music therapy if they become available. 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 He would prefer to go home with caregivers and this option will be explored once funding is secured and caregivers can be found. It is also possible that he may be appropriate for an AFC home if funding is available. will continue to support Favio and his discharge planning needs Initials [facility]
--- NOTE | 2021-09-16 18:57 | DI.VRAD_ITS ---
PROCEDURE INFORMATION: Exam: XR Chest Exam date and time: 09/16/2021 4:27 PM Age: 56 years old Clinical indication: Other: Cough TECHNIQUE: Imaging protocol: XR of the chest. Views: 1 view. COMPARISON: CR XR CHEST 2V PA LATERAL 09/05/2021 11:41 AM FINDINGS: Lungs: Unremarkable. No consolidation. Pleural spaces: Unremarkable. No pleural effusion. No pneumothorax. Heart/Mediastinum: Unremarkable. No cardiomegaly. Bones/joints: Unremarkable. IMPRESSION: No acute findings. Dictated and Authenticated by: Armando Garcia MD. Ordering:[facility] Whitney Haddad MD
[2021-09-16] MEDS: Normal Saline Flush 10 ML SYR IVP (21:59)
[2021-09-16] MEDS: Magnesium Chloride 64 MG TABCR 128 MG PO (22:00)
[2021-09-16] MEDS: guaiFENesin 600 MG TABCR PO (22:00)
[2021-09-16] MEDS: Senna TAB 2 TAB PO (22:00)
[2021-09-16] MEDS: Mirtazapine 15 MG TAB 7.5 MG PO (22:00)
[2021-09-16] MEDS: Ascorbic Acid 500 MG TAB 1000 MG PO (22:01)
[2021-09-16 22:29] VITALS: BP 123/70; PULSE 89; RESP 24; TEMP 37.1; O2SAT 95
[2021-09-17] MEDS: Docusate Sodium 100 MG CAP PO ×3 (09:21→21:01)
[2021-09-17] MEDS: Polyethylene Glycol 3350 17 GM PACKET PO (09:21)
[2021-09-17] MEDS: Protein Nutritional Supplement 16 GM 1 OUNCE PACKET PO ×2 (09:21→21:00)
[2021-09-17] MEDS: Ascorbic Acid 500 MG TAB 1000 MG PO ×2 (09:21→21:01)
[2021-09-17] MEDS: Pantoprazole 40 MG TABCR PO (09:22)
[2021-09-17] MEDS: Lactobacillus Acidophilus CAP 1 CAP PO ×3 (09:22→21:00)
[2021-09-17] MEDS: Senna TAB 2 TAB PO ×2 (09:22→21:00)
[2021-09-17] MEDS: amLODIPine 10 MG TAB PO (09:22)
[2021-09-17] MEDS: Multivitamin TAB 1 TAB PO (09:22)
[2021-09-17] MEDS: Cholecalciferol (Vitamin D3) 1,000 UNIT TAB 2000 UNITS PO (09:23)
[2021-09-17] MEDS: Magnesium Chloride 64 MG TABCR 128 MG PO ×2 (09:23→21:00)
[2021-09-17] MEDS: guaiFENesin 600 MG TABCR PO ×2 (09:23→21:00)
[2021-09-17] MEDS: DULoxetine 30 MG CAP 60 MG PO (09:23)
[2021-09-17] MEDS: diazePAM 2 MG TAB PO ×3 (09:23→21:01)
[2021-09-17] MEDS: Fluconazole 100 MG TAB 200 MG PO (09:23)
[2021-09-17] MEDS: Benzonatate 100 MG CAP PO ×3 (09:24→21:01)
[2021-09-17] MEDS: Normal Saline Flush 10 ML SYR IVP ×2 (09:24→21:00)
[2021-09-17 09:47] VITALS: BP 129/81; PULSE 78; RESP 16; TEMP 37.1; O2SAT 98
--- NOTE | 2021-09-17 10:10 | NT_ITS ---
Date of service: 09/17/21 Time of Service: 10:10 PT Notes Visit Reasons: Generalized weakness deconditonin Failure tothrive Patient remains at previous mobility level requiring mechanical lift for all transfer task performance. Nursing staff providing needed positioning techniques for patient at this time. made aware of patient's mobility status and is in agreement of non-need for PT services at this time. Thank you for the opportunity to participate in the care of this patient. Kathy Solorio PT, DPT, CLT [facility] [place], [place]
[2021-09-17] MEDS: Enoxaparin 40 MG/0.4 ML SYR SC (12:55)
[2021-09-17 20:58] VITALS: BP 113/77; PULSE 81; RESP 16; TEMP 37.2; O2SAT 94
[2021-09-17] MEDS: Mirtazapine 15 MG TAB 7.5 MG PO (21:00)
[2021-09-17 23:12] VITALS: BP 121/83; PULSE 83; RESP 16; TEMP 37; O2SAT 96
[2021-09-18] MEDS: Protein Nutritional Supplement 16 GM 1 OUNCE PACKET PO ×3 (09:42→21:51)
[2021-09-18] MEDS: Polyethylene Glycol 3350 17 GM PACKET PO (09:42)
[2021-09-18] MEDS: Multivitamin TAB 1 TAB PO (09:43)
[2021-09-18] MEDS: Benzonatate 100 MG CAP PO ×3 (09:43→21:53)
[2021-09-18] MEDS: guaiFENesin 600 MG TABCR PO ×2 (09:43→21:51)
[2021-09-18] MEDS: Pantoprazole 40 MG TABCR PO (09:43)
[2021-09-18] MEDS: Cholecalciferol (Vitamin D3) 1,000 UNIT TAB 2000 UNITS PO (09:43)
[2021-09-18] MEDS: Docusate Sodium 100 MG CAP PO ×3 (09:43→21:52)
[2021-09-18] MEDS: diazePAM 2 MG TAB PO ×3 (09:43→21:52)
[2021-09-18] MEDS: DULoxetine 30 MG CAP 60 MG PO (09:43)
[2021-09-18] MEDS: Lactobacillus Acidophilus CAP 1 CAP PO ×3 (09:43→21:52)
[2021-09-18] MEDS: Magnesium Chloride 64 MG TABCR 128 MG PO ×2 (09:44→21:51)
[2021-09-18] MEDS: Ascorbic Acid 500 MG TAB 1000 MG PO ×2 (09:44→21:51)
[2021-09-18] MEDS: Senna TAB 2 TAB PO ×2 (09:44→21:52)
[2021-09-18] MEDS: amLODIPine 10 MG TAB PO (09:44)
[2021-09-18] MEDS: Normal Saline Flush 10 ML SYR IVP ×2 (09:45→21:51)
[2021-09-18 10:32] VITALS: BP 119/76; PULSE 78; RESP 22; TEMP 37; O2SAT 95
[2021-09-18] MEDS: Enoxaparin 40 MG/0.4 ML SYR SC (13:18)
[2021-09-18 21:50] VITALS: BP 123/80; PULSE 87; RESP 20; TEMP 37.4; O2SAT 96
[2021-09-18] MEDS: Mirtazapine 15 MG TAB 7.5 MG PO (21:52)
[2021-09-19 02:49] VITALS: BP 112/71; PULSE 80; RESP 20; TEMP 36.9; O2SAT 96
[2021-09-19] MEDS: Polyethylene Glycol 3350 17 GM PACKET PO (07:53)
[2021-09-19] MEDS: Senna TAB 2 TAB PO ×2 (07:53→20:14)
[2021-09-19] MEDS: Protein Nutritional Supplement 16 GM 1 OUNCE PACKET PO ×2 (07:53→20:11)
[2021-09-19] MEDS: amLODIPine 10 MG TAB PO (07:53)
[2021-09-19] MEDS: DULoxetine 30 MG CAP 60 MG PO (07:54)
[2021-09-19] MEDS: Pantoprazole 40 MG TABCR PO (07:54)
[2021-09-19] MEDS: Magnesium Chloride 64 MG TABCR 128 MG PO ×2 (07:54→20:14)
[2021-09-19] MEDS: Multivitamin TAB 1 TAB PO (07:54)
[2021-09-19] MEDS: Cholecalciferol (Vitamin D3) 1,000 UNIT TAB 2000 UNITS PO (07:54)
[2021-09-19] MEDS: diazePAM 2 MG TAB PO ×2 (07:54→20:15)
[2021-09-19] MEDS: guaiFENesin 600 MG TABCR PO ×2 (07:55→20:15)
[2021-09-19] MEDS: Normal Saline Flush 10 ML SYR IVP ×2 (07:55→20:20)
[2021-09-19] MEDS: Benzonatate 100 MG CAP PO ×2 (07:55→20:14)
[2021-09-19] MEDS: Docusate Sodium 100 MG CAP PO ×2 (07:55→20:15)
[2021-09-19] MEDS: Lactobacillus Acidophilus CAP 1 CAP PO ×2 (07:55→20:12)
[2021-09-19] MEDS: Ascorbic Acid 500 MG TAB 1000 MG PO ×2 (07:55→20:15)
[2021-09-19 08:10] VITALS: BP 126/86; PULSE 80; RESP 20; TEMP 36.7; O2SAT 95
--- NOTE | 2021-09-19 14:27 | PDOC.CMPRO ---
- If Service Date Differs Date of service: 09/19/21 Time of Service: 14:27 Care Management Progress Note S/O: Favio informed the provider that Nicki is now willing to have him return to her home and to provide his care. Conversations CM had with Nicki were not consistent with that information, so CM contacted her directly this morning. Nicki stated that things did not go well when Favio stayed in her home during August. There was no money available to pay for caregivers and the ones that were hired, Nicki had to pay for out of pocket. Coverage was inconsistent and it affected Nicki's job as well as her family life as her ill, elderly mother lives with her. Nicki ended up being the primary caregiver in addition to caring for her mother and working daytime caregiver. The situation was not sustainable. Additionally there were issues between Nicki and Favio from an interpersonal relationship standpoint that made the situation even more difficult. Nicki informed CM that the only way she could possibly consider having Favio return would be if he had retirement Medicaid with caregivers ready to step in and provide the majority of his care every day. Even with that in place, she stated that she is still not sure that she would agree because of all of the other issues. A: Favio is a 56 year old man admitted on 09/01/21 with a UTI P: Favio's discharge plan is unclear at this time as he has no payer source for caregivers or a SNF and he requires total care. A retirement Medicaid application has been in process since March but various barriers to its completion and approval have occurred. Favio's daughter Luz is his DPOA and has been handling the application. Nicki, the mother of Mcs children, is not willing to take him back into her home at this time.
[2021-09-19] MEDS: Mirtazapine 15 MG TAB 7.5 MG PO (20:13)
[2021-09-20] MEDS: Polyethylene Glycol 3350 17 GM PACKET PO (08:55)
[2021-09-20] MEDS: Protein Nutritional Supplement 16 GM 1 OUNCE PACKET PO ×3 (08:55→21:30)
[2021-09-20] MEDS: Multivitamin TAB 1 TAB PO (08:56)
[2021-09-20] MEDS: DULoxetine 30 MG CAP 60 MG PO (08:56)
[2021-09-20] MEDS: Normal Saline Flush 10 ML SYR IVP ×2 (08:56→21:33)
[2021-09-20] MEDS: Cholecalciferol (Vitamin D3) 1,000 UNIT TAB 2000 UNITS PO (08:56)
[2021-09-20] MEDS: Senna TAB 2 TAB PO ×2 (08:56→21:31)
[2021-09-20] MEDS: guaiFENesin 600 MG TABCR PO ×2 (08:56→21:32)
[2021-09-20] MEDS: Magnesium Chloride 64 MG TABCR 128 MG PO ×2 (08:56→21:30)
[2021-09-20] MEDS: Pantoprazole 40 MG TABCR PO (08:57)
[2021-09-20] MEDS: amLODIPine 10 MG TAB PO (08:57)
[2021-09-20] MEDS: Ascorbic Acid 500 MG TAB 1000 MG PO ×2 (08:58→21:30)
[2021-09-20] MEDS: Docusate Sodium 100 MG CAP PO ×3 (08:58→21:32)
[2021-09-20] MEDS: Benzonatate 100 MG CAP PO ×3 (08:58→21:32)
[2021-09-20] MEDS: Lactobacillus Acidophilus CAP 1 CAP PO ×3 (08:58→21:31)
[2021-09-20] MEDS: diazePAM 2 MG TAB PO ×3 (08:58→21:32)
[2021-09-20 09:11] VITALS: BP 168/72; PULSE 82; RESP 16; TEMP 36; O2SAT 95
[2021-09-20] MEDS: Enoxaparin 40 MG/0.4 ML SYR SC (12:10)
[2021-09-20 16:51] VITALS: BP 112/78; PULSE 77; RESP 20; TEMP 36.8; O2SAT 96
[2021-09-20] MEDS: Mirtazapine 15 MG TAB 7.5 MG PO (21:31)
[2021-09-21 02:12] VITALS: BP 112/78; PULSE 77; RESP 18; TEMP 36.8; O2SAT 97
[2021-09-21 08:11] VITALS: BP 132/87; PULSE 72; RESP 18; TEMP 37.3; O2SAT 95
[2021-09-21] MEDS: amLODIPine 10 MG TAB PO (08:44)
[2021-09-21] MEDS: Ascorbic Acid 500 MG TAB 1000 MG PO ×2 (08:45→21:04)
[2021-09-21] MEDS: Benzonatate 100 MG CAP PO ×3 (08:45→21:05)
[2021-09-21] MEDS: Cholecalciferol (Vitamin D3) 1,000 UNIT TAB 2000 UNITS PO (08:45)
[2021-09-21] MEDS: DULoxetine 30 MG CAP 60 MG PO (08:46)
[2021-09-21] MEDS: diazePAM 2 MG TAB PO ×3 (08:46→21:07)
[2021-09-21] MEDS: Docusate Sodium 100 MG CAP PO ×3 (08:46→21:05)
[2021-09-21] MEDS: guaiFENesin 600 MG TABCR PO ×2 (08:47→21:06)
[2021-09-21] MEDS: Magnesium Chloride 64 MG TABCR 128 MG PO ×2 (08:47→21:06)
[2021-09-21] MEDS: Multivitamin TAB 1 TAB PO (08:47)
[2021-09-21] MEDS: Lactobacillus Acidophilus CAP 1 CAP PO ×3 (08:47→21:05)
[2021-09-21] MEDS: Normal Saline Flush 10 ML SYR IVP ×2 (08:48→21:08)
[2021-09-21] MEDS: Pantoprazole 40 MG TABCR PO (08:49)
[2021-09-21] MEDS: Polyethylene Glycol 3350 17 GM PACKET PO (08:49)
[2021-09-21] MEDS: Protein Nutritional Supplement 16 GM 1 OUNCE PACKET PO ×3 (08:49→21:03)
[2021-09-21] MEDS: Senna TAB 2 TAB PO ×2 (08:50→21:06)
[2021-09-21] MEDS: Enoxaparin 40 MG/0.4 ML SYR SC (13:05)
[2021-09-21 15:30] VITALS: BP 111/76; PULSE 82; RESP 18; TEMP 37; O2SAT 98
[2021-09-21] MEDS: Mirtazapine 15 MG TAB 7.5 MG PO (21:06)
[2021-09-21 23:54] VITALS: BP 109/71; PULSE 90; RESP 17; TEMP 37; O2SAT 98
[2021-09-22] MEDS: Polyethylene Glycol 3350 17 GM PACKET PO (09:55)
[2021-09-22] MEDS: Lactobacillus Acidophilus CAP 1 CAP PO ×3 (09:56→21:17)
[2021-09-22] MEDS: Protein Nutritional Supplement 16 GM 1 OUNCE PACKET PO ×3 (09:56→21:15)
[2021-09-22] MEDS: amLODIPine 10 MG TAB PO (09:56)
[2021-09-22] MEDS: Normal Saline Flush 10 ML SYR IVP ×2 (09:56→21:18)
[2021-09-22] MEDS: guaiFENesin 600 MG TABCR PO ×2 (09:57→21:17)
[2021-09-22] MEDS: diazePAM 2 MG TAB PO ×3 (09:57→21:16)
[2021-09-22] MEDS: Docusate Sodium 100 MG CAP PO ×3 (09:57→21:16)
[2021-09-22] MEDS: Magnesium Chloride 64 MG TABCR 128 MG PO ×2 (09:57→21:18)
[2021-09-22] MEDS: Cholecalciferol (Vitamin D3) 1,000 UNIT TAB 2000 UNITS PO (09:57)
[2021-09-22] MEDS: Benzonatate 100 MG CAP PO ×3 (09:57→21:15)
[2021-09-22] MEDS: Senna TAB 2 TAB PO ×2 (09:57→21:15)
[2021-09-22] MEDS: Ascorbic Acid 500 MG TAB 1000 MG PO ×2 (09:57→21:14)
[2021-09-22] MEDS: Pantoprazole 40 MG TABCR PO (09:58)
[2021-09-22] MEDS: Multivitamin TAB 1 TAB PO (09:58)
[2021-09-22] MEDS: DULoxetine 30 MG CAP 60 MG PO (09:58)
[2021-09-22 10:07] VITALS: BP 143/94; PULSE 72; RESP 16; TEMP 36.9; O2SAT 95
[2021-09-22] MEDS: Enoxaparin 40 MG/0.4 ML SYR SC (13:22)
[2021-09-22 13:26] VITALS: BP 132/84; PULSE 77; RESP 18; TEMP 36; O2SAT 94
[2021-09-22 15:30] VITALS: BP 120/80; PULSE 75; RESP 18; TEMP 36.8; O2SAT 97
[2021-09-22] MEDS: Mirtazapine 15 MG TAB 7.5 MG PO (21:16)
[2021-09-23 00:10] VITALS: BP 150/87; PULSE 75; RESP 18; TEMP 36.6; O2SAT 97
[2021-09-23 07:27] VITALS: BP 145/77; PULSE 69; RESP 18; TEMP 37; O2SAT 98
[2021-09-23] MEDS: Lactobacillus Acidophilus CAP 1 CAP PO ×3 (08:37→20:59)
[2021-09-23] MEDS: Cholecalciferol (Vitamin D3) 1,000 UNIT TAB 2000 UNITS PO (08:37)
[2021-09-23] MEDS: Magnesium Chloride 64 MG TABCR 128 MG PO ×2 (08:37→20:59)
[2021-09-23] MEDS: Polyethylene Glycol 3350 17 GM PACKET PO (08:37)
[2021-09-23] MEDS: guaiFENesin 600 MG TABCR PO ×2 (08:37→20:59)
[2021-09-23] MEDS: Protein Nutritional Supplement 16 GM 1 OUNCE PACKET PO ×3 (08:37→21:45)
[2021-09-23] MEDS: Senna TAB 2 TAB PO ×2 (08:37→21:00)
[2021-09-23] MEDS: DULoxetine 30 MG CAP 60 MG PO (08:38)
[2021-09-23] MEDS: Multivitamin TAB 1 TAB PO (08:38)
[2021-09-23] MEDS: amLODIPine 10 MG TAB PO (08:38)
[2021-09-23] MEDS: Docusate Sodium 100 MG CAP PO ×3 (08:38→21:00)
[2021-09-23] MEDS: Benzonatate 100 MG CAP PO ×3 (08:38→21:00)
[2021-09-23] MEDS: Ascorbic Acid 500 MG TAB 1000 MG PO (08:38)
[2021-09-23] MEDS: diazePAM 2 MG TAB PO ×3 (08:38→21:00)
[2021-09-23] MEDS: Pantoprazole 40 MG TABCR PO (08:38)
[2021-09-23] MEDS: Normal Saline Flush 10 ML SYR IVP ×2 (08:39→21:44)
--- NOTE | 2021-09-23 09:00 | PCPN_ITS ---
Date of service: 09/23/21 Time of Service: 09:01 Assessment and Plan Assessment and plan (1) COVID-19: Status: Acute (2) Chronic recurrent multifocal osteomyelitis: Status: Chronic (3) Major depressive disorder: Status: Chronic Qualifiers: Major depression recurrence: single episode Active/Remission status: currently active Major depression episode severity: moderate Qualified Code(s): F32.1 - Major depressive disorder, single episode, moderate (4) Quadriplegia: Status: Chronic (5) Palliative care encounter: Status: Acute Assessment and plan: Overall Favio is coping. He really would like a more clear plan for the future, someplace where he can be happy cared for etc. I am not certain that his plan of going to an apartment and living on his own is possible given his quadriplegia. I know care management is working with him COVID-19 he is now off quarantine he really has not had any symptoms from this We did not discuss his insomnia. I had recommended that he have lorazepam 1 mg at night. I am well aware of the problems he had with encephalopathy in the past. This is been his 1 request that he is made whenever I ask him what I can do to help him, his insomnia is difficult because of the long nights. I will continue to see Favio regularly Subjective Subjective Interval history since last seen: Favio is now out of quarantine. He did have some visitors recently. Regarding next steps he states that his daughter lives in the [facility] and that they have space available. He is hoping to move in there and have caregivers come in on a regular basis. He knows he can no longer go back to live with Nicki. They have had words that cannot be amended. He feels about the same, kind of bored Exam Narrative Exam Narrative: Favio is lying in bed. He is always a gentleman and very cooperative during our time together. His heart is regular. Lungs adequate air movement, belly soft he has a colostomy and a suprapubic cath in place. He is moving his upper extremities they look to be about the same as they had in the past. Objective Last Vital Signs Temp 98.6 F 09/23/21 07:27 Pulse 69 09/23/21 07:27 Resp 18 09/23/21 07:27 BP 145/77 H 11/22/21 07:27 Pulse Ox 98 09/23/21 07:27
--- NOTE | 2021-09-23 13:18 | W.NUTCONSULT ---
Date of service: 09/23/21 Time of Service: 13:18 Nutritional Consult ASSESSMENT: Per nursing and dietary staff Mr. Velasquez not consuming supplemental ensure clear and concerns about refused supplements being wasted. Favio sleeping when I went to visit today. Today?s weight down to 81kg from 90.7kg in one week?s time (nursing verified he did switch to a new type of bed recently). Suspect inaccurate weight today. However will monitor and suggest daily weight assessment due to nutrition risk. Between ensure clear/ensure pudding, CIB and other supplements it is suspected Mr Velasquez is overwhelmed by the acute medicine taste, as well as the monotony of supplements being constantly in front of him. His po intake is good (when not refused). Will trial d/c of additional tray supplements and add magic cups fortified ice cream (290kcals, 9g protein) to dinner tray only with intention of offering something slightly more palatable just once per day. Will continue to monitor weight changes and supplement toleration Time Spent in Nutritional Counseling and Treatment: 15 minutes
[2021-09-23] MEDS: Enoxaparin 40 MG/0.4 ML SYR SC (13:41)
--- NOTE | 2021-09-23 14:41 | PHA.REVIEW ---
Pharmacy Admission Review - Admission Clinical Review (Last Reviewed 09/16/21 @ 12:55 by Boo Olson) Constipation due to neurogenic bowel (Acute) COVID-19 (Acute) DVT prophylaxis (Acute) Discharge planning issues (Acute) No Known Allergies Allergy (Unverified 09/01/21 12:15) Resuscitation Status DNR/DNI Height 6 ft 2 in Weight 81 kg - Renal Dosing Medications needing adjustments: N/A (Scr: 0.5 CrCl: ~120.0 mL/min. All medications properly dosed.) - Anticoagulation DVT Prophylaxis: Reviewed Medications: Enoxaparin (Enoxaparin 40mg SC Q24H. Continue per provider.) Therapeutic Anticoagulation: N/A - Opiate Usage Evaluate Pain Scale/Pains Meds: N/A (No opiates currently ordered.) Scheduled Bowel Reg ordered if on Opiates?: Yes (Senna, docusate scheduled) - Relevant Labs Electrolytes, C-Reactive P, ESR: Reviewed - DM Control Insulin Dosing: N/A - Heart Failure/RI EF%, JAYLON's, B-Blockers, Diuretics: N/A - BP Control BP Control: Blood Pressure 145/77 If elevated: Reviewed (Blood pressure slightly elevated. Continue to monitor.) - Qtc Review If Elevated: N/A - IV to PO Switch IV Medications: Reviewed - Home Meds Relevent Home Meds Not ordered & why?: Omeprazole 40mg (replaced by Pantoprazole 40mg) - Current meds Current Medication Order Review: Intervened (Spoke with provider regarding Vitamin C and Vitamin D dosing, decreased back to patient's home doses.) - Comments Comments/Follow Ups: Monitor blood pressure, labs and medication changes.
[2021-09-23 15:55] VITALS: BP 119/81; PULSE 81; RESP 20; TEMP 36.7; O2SAT 98
[2021-09-23] MEDS: Ascorbic Acid 500 MG TAB PO (20:59)
[2021-09-23] MEDS: Acetaminophen 325 MG TAB 650 MG PO (21:00)
[2021-09-23] MEDS: Mirtazapine 15 MG TAB 7.5 MG PO (21:00)
[2021-09-23 23:42] VITALS: BP 131/79; PULSE 82; RESP 20; TEMP 37.1; O2SAT 99
[2021-09-24 07:26] VITALS: BP 119/82; PULSE 69; RESP 18; TEMP 37; O2SAT 97
[2021-09-24] MEDS: Protein Nutritional Supplement 16 GM 1 OUNCE PACKET PO ×3 (07:53→20:57)
[2021-09-24] MEDS: Polyethylene Glycol 3350 17 GM PACKET PO (07:53)
[2021-09-24] MEDS: guaiFENesin 600 MG TABCR PO ×2 (07:54→20:55)
[2021-09-24] MEDS: Docusate Sodium 100 MG CAP PO ×3 (07:54→20:55)
[2021-09-24] MEDS: Lactobacillus Acidophilus CAP 1 CAP PO ×3 (07:54→20:56)
[2021-09-24] MEDS: amLODIPine 10 MG TAB PO (07:54)
[2021-09-24] MEDS: Benzonatate 100 MG CAP PO ×3 (07:54→20:55)
[2021-09-24] MEDS: Pantoprazole 40 MG TABCR PO (07:54)
[2021-09-24] MEDS: Ascorbic Acid 500 MG TAB PO ×2 (07:54→20:55)
[2021-09-24] MEDS: Cholecalciferol (Vitamin D3) 1,000 UNIT TAB 1000 UNITS PO (07:54)
[2021-09-24] MEDS: DULoxetine 30 MG CAP 60 MG PO (07:55)
[2021-09-24] MEDS: Magnesium Chloride 64 MG TABCR 128 MG PO ×2 (07:55→20:55)
[2021-09-24] MEDS: Senna TAB 2 TAB PO ×2 (07:55→20:56)
[2021-09-24] MEDS: Multivitamin TAB 1 TAB PO (07:55)
[2021-09-24] MEDS: diazePAM 2 MG TAB PO ×3 (07:55→20:56)
[2021-09-24] MEDS: Normal Saline Flush 10 ML SYR IVP ×2 (07:55→20:57)
[2021-09-24] MEDS: Enoxaparin 40 MG/0.4 ML SYR SC (11:12)
--- NOTE | 2021-09-24 11:59 | PDOC.CMPRO ---
- If Service Date Differs Date of service: 09/24/21 Time of Service: 11:59 Care Management Progress Note S/O: ALCIDES received a call this morning from Nicki Lisa, the mother of Favio's children and his former caregiver. Nicki informed CM that Luz Velasquez, Favio's daughter and DPOA, received word this morning that Favio has been approved for CFC, high highest/termination clerk Medicaid. This will enable Favio to be placed in a SNF, AFC home or back into the community with caregivers. CM discussed this with Favio. He expressed relief that he has received the approval and wants to be able to go home into an apartment. This will likely need to be an intermediate goal as there are no caregivers hired or ready at this point. CM did ask about AFC homes and SNFs and Favio agreed that he would consider one or the other short term but is clear he does not see either as a permanent solution. CM contacted Favio's piano case maker at [facility], Nenita Naranjo. She is away until next week but CM was able to speak to her gate supervisor, Luz Correa. Luz stated that their agency has not been notified of the LTM/CFC approval yet but that there is sometimes a lag of a day or two. She anticipates that [facility] will receive notification by Thursday. If not, she stated that she will follow up with [facility]. A: Favio is a 56 year old man admitted on 09/01/21 with a UTI P: Favio's discharge plan remains unclear at this time. His DPOA has received word that his LTM/CFC application has been approved but the administering agency chosen by the patient, [facility], has not received the word officially yet. As Favio has not been hospital level of care for some time, efforts to find temporary placement are underway. Referrals have been sent to [facility], [facility], [facility] and [facility]. CM will continue to support Favio and assess for discharge planning concerns.
--- NOTE | 2021-09-24 14:38 | WOUNDCONS_ITS ---
- If Service Date Differs Date of service: 09/24/21 Time of Service: 14:38 Wound Initial Evaluation Narrative: 56 yom , swing bed patient here. These are follow up photos for the provider. Patient is being followed by [facility] [place] [facility] as an out patient . Staff here are continuing to follow there recommendations. - Wound Right Hip Wound Type: Full Thickness Pressure Ulcer Stage: IV Wound General Appearance: Reddened, Draining, Necrotic, Unapproximated Wound Bed Greatest Portion: Pale [place], Yellow (Slough) Wound Surrounding Tissue Appearance: [place] Percent of Wound Bed Granulated/Red: 50 Percent of Wound Bed Slough/Yellow: 50 Wound Length: 2.4 cm Wound Width: 1.5 cm Wound Depth: 2.3 cm Wound Drainage Amount: Minimal Wound Drainage Odor: Strong Wound Drainage Description: Bloody Wound Topical Solution/Irrigant: Saline Irrigant Wound Debridement Method: Mechanical Wound Debridement Result: Healthy Tissue Revealed Wound Debridement Amount of Tissue Removed: Minimal Left Hip Wound Type: Pressure Ulcer, Full Thickness Pressure Ulcer Stage: IV Wound General Appearance: Reddened, Draining, Bleeding, Necrotic Wound Bed Greatest Portion: Red (Granulation) Wound Bed Lesser Portion: Yellow (Slough) Percent of Wound Bed Granulated/Red: 90 Percent of Wound Bed Slough/Yellow: 10 Wound Length: 3.1 cm Wound Width: 1.9 cm Wound Depth: 0.5 cm Wound Drainage Amount: Minimal Wound Drainage Odor: Strong Wound Drainage Description: Bloody Wound Topical Solution/Irrigant: Saline Irrigant Wound Debridement Method: Mechanical Wound Debridement Result: Healthy Tissue Revealed Wound Debridement Amount of Tissue Removed: Minimal Lumbar/Sacral Wound Type: Pressure Ulcer Pressure Ulcer Stage: II Wound General Appearance: Reddened Wound Bed Greatest Portion: Red (Granulation) Percent of Wound Bed Granulated/Red: 100 Wound Length: 1.8 cm Wound Width: 2 cm Wound Depth: 0.1 cm Wound Drainage Amount: None Wound Drainage Odor: None/Absent Wound Drainage Description: No drainage Wound Topical Solution/Irrigant: Saline Irrigant Wound Debridement Method: Mechanical Wound Debridement Result: Healthy Tissue Revealed Wound Debridement Amount of Tissue Removed: None Right Foot Wound Type: Pressure Ulcer Pressure Ulcer Stage: IV Wound General Appearance: Reddened, Draining, Bleeding Wound Bed Greatest Portion: Red (Granulation) Wound Bed Lesser Portion: Yellow (Slough) Wound Surrounding Tissue Appearance: [place] Percent of Wound Bed Granulated/Red: 90 Percent of Wound Bed Slough/Yellow: 10 Wound Length: 2 cm Wound Width: 1.5 cm Wound Depth: 0.3 cm Wound Drainage Amount: Large Wound Drainage Odor: Strong Wound Drainage Description: Bloody, Purulent Wound Topical Solution/Irrigant: Saline Irrigant Wound Debridement Result: Yellow Sloughing Remains Wound Debridement Amount of Tissue Removed: Large - Circulation, Sensation, Motion Edema Degree: Trace Peripheral Pulse Strength: Normal Capillary Refill: Less than 3 seconds Sensation Description: Numbness, Tingling Skin Temperature: Warm Skin Color: Normal - MAURILIO Comment:: not indicated Wounds that are being seen at [facility] as an outpatient. wounds that have been treated for a considerable amount of time. Pictures taken today for the provider to see progress. - Recomendation Recomendation:: Continue treatment as recommended by [facility]
[2021-09-24] MEDS: Acetaminophen 325 MG TAB 650 MG PO (20:56)
[2021-09-24] MEDS: Mirtazapine 15 MG TAB 7.5 MG PO (21:02)
[2021-09-24 22:04] VITALS: BP 124/86; PULSE 68; RESP 18; TEMP 36.3; O2SAT 98
[2021-09-25] MEDS: Senna TAB 2 TAB PO ×2 (09:43→20:22)
[2021-09-25] MEDS: Pantoprazole 40 MG TABCR PO (09:43)
[2021-09-25] MEDS: Benzonatate 100 MG CAP PO ×3 (09:43→20:22)
[2021-09-25] MEDS: guaiFENesin 600 MG TABCR PO ×2 (09:43→20:22)
[2021-09-25] MEDS: Multivitamin TAB 1 TAB PO (09:43)
[2021-09-25] MEDS: Magnesium Chloride 64 MG TABCR 128 MG PO ×2 (09:43→20:22)
[2021-09-25] MEDS: DULoxetine 30 MG CAP 60 MG PO (09:43)
[2021-09-25] MEDS: amLODIPine 10 MG TAB PO (09:43)
[2021-09-25] MEDS: Ascorbic Acid 500 MG TAB PO ×2 (09:44→20:22)
[2021-09-25] MEDS: Polyethylene Glycol 3350 17 GM PACKET PO (09:44)
[2021-09-25] MEDS: diazePAM 2 MG TAB PO ×3 (09:44→20:22)
[2021-09-25] MEDS: Cholecalciferol (Vitamin D3) 1,000 UNIT TAB 1000 UNITS PO (09:44)
[2021-09-25] MEDS: Protein Nutritional Supplement 16 GM 1 OUNCE PACKET PO ×3 (09:44→20:22)
[2021-09-25] MEDS: Normal Saline Flush 10 ML SYR IVP ×2 (09:44→20:23)
[2021-09-25] MEDS: Docusate Sodium 100 MG CAP PO ×3 (09:44→20:22)
[2021-09-25] MEDS: Lactobacillus Acidophilus CAP 1 CAP PO ×3 (09:44→20:22)
[2021-09-25 12:18] VITALS: BP 123/67; PULSE 84; RESP 18; TEMP 36.1; O2SAT 94
[2021-09-25] MEDS: Enoxaparin 40 MG/0.4 ML SYR SC (13:10)
[2021-09-25 17:10] VITALS: BP 110/76; PULSE 83; RESP 20; TEMP 36.8; O2SAT 96
[2021-09-25] MEDS: Mirtazapine 15 MG TAB 7.5 MG PO (22:00)
[2021-09-25 23:27] VITALS: BP 103/68; PULSE 84; RESP 18; TEMP 37; O2SAT 96
[2021-09-26] MEDS: Benzonatate 100 MG CAP PO ×3 (09:31→21:03)
[2021-09-26] MEDS: DULoxetine 30 MG CAP 60 MG PO (09:31)
[2021-09-26] MEDS: Magnesium Chloride 64 MG TABCR 128 MG PO ×2 (09:31→21:04)
[2021-09-26] MEDS: Cholecalciferol (Vitamin D3) 1,000 UNIT TAB 1000 UNITS PO (09:31)
[2021-09-26] MEDS: Docusate Sodium 100 MG CAP PO ×3 (09:31→21:03)
[2021-09-26] MEDS: Multivitamin TAB 1 TAB PO (09:31)
[2021-09-26] MEDS: guaiFENesin 600 MG TABCR PO ×2 (09:31→21:02)
[2021-09-26] MEDS: Lactobacillus Acidophilus CAP 1 CAP PO ×3 (09:31→21:02)
[2021-09-26] MEDS: Senna TAB 2 TAB PO ×2 (09:31→21:02)
[2021-09-26] MEDS: amLODIPine 10 MG TAB PO (09:31)
[2021-09-26] MEDS: diazePAM 2 MG TAB PO ×3 (09:31→21:03)
[2021-09-26] MEDS: Ascorbic Acid 500 MG TAB PO ×2 (09:31→21:03)
[2021-09-26] MEDS: Pantoprazole 40 MG TABCR PO (09:31)
[2021-09-26] MEDS: Polyethylene Glycol 3350 17 GM PACKET PO (09:32)
[2021-09-26] MEDS: Protein Nutritional Supplement 16 GM 1 OUNCE PACKET PO ×3 (09:32→21:05)
[2021-09-26] MEDS: Normal Saline Flush 10 ML SYR IVP ×2 (09:32→21:04)
[2021-09-26] MEDS: Enoxaparin 40 MG/0.4 ML SYR SC (14:00)
[2021-09-26 14:47] VITALS: BP 143/86; PULSE 77; RESP 18; TEMP 36.9; O2SAT 97
[2021-09-26] MEDS: Mirtazapine 15 MG TAB 7.5 MG PO (21:03)
[2021-09-26 22:40] VITALS: BP 134/89; PULSE 65; RESP 18; TEMP 36.3; O2SAT 95
[2021-09-27 07:18] VITALS: BP 142/90; PULSE 76; RESP 18; TEMP 37.1; O2SAT 92
[2021-09-27] MEDS: Normal Saline Flush 10 ML SYR IVP ×2 (09:04→20:59)
[2021-09-27] MEDS: guaiFENesin 600 MG TABCR PO ×2 (09:18→20:58)
[2021-09-27] MEDS: Lactobacillus Acidophilus CAP 1 CAP PO ×3 (09:18→20:59)
[2021-09-27] MEDS: Magnesium Chloride 64 MG TABCR 128 MG PO ×2 (09:18→20:58)
[2021-09-27] MEDS: DULoxetine 30 MG CAP 60 MG PO (09:18)
[2021-09-27] MEDS: Docusate Sodium 100 MG CAP PO ×3 (09:19→20:58)
[2021-09-27] MEDS: Pantoprazole 40 MG TABCR PO (09:19)
[2021-09-27] MEDS: diazePAM 2 MG TAB PO ×3 (09:19→20:59)
[2021-09-27] MEDS: Cholecalciferol (Vitamin D3) 1,000 UNIT TAB 1000 UNITS PO (09:19)
[2021-09-27] MEDS: Senna TAB 2 TAB PO ×2 (09:19→20:59)
[2021-09-27] MEDS: amLODIPine 10 MG TAB PO (09:19)
[2021-09-27] MEDS: Benzonatate 100 MG CAP PO ×3 (09:19→20:59)
[2021-09-27] MEDS: Multivitamin TAB 1 TAB PO (09:20)
[2021-09-27] MEDS: Ascorbic Acid 500 MG TAB PO ×2 (09:20→20:59)
[2021-09-27] MEDS: Enoxaparin 40 MG/0.4 ML SYR SC (12:09)
[2021-09-27 15:19] VITALS: BP 127/80; PULSE 85; RESP 16; TEMP 37.1; O2SAT 97
--- NOTE | 2021-09-27 15:43 | W.PM.PROGNOT ---
Date of Service Date of service: 09/27/21 Time of Service: 15:44 Assessment and Plan Assessment and plan (1) COVID-19: Status: Acute Assessment and plan: patient was found to have SARS-COV2 from a libertarian he attended on 08/31. Initial nasal PCR on 09/01 was negative but when he ran fevers and his CXR showed a subtle RLL infiltrate he had repeat testing on 09/09 which was positive. he received monoclonal antibodies on 09/09. He never became hypoxemic and repeat CXR has shown resolution of his infiltrate. (2) Chronic recurrent multifocal osteomyelitis: Status: Chronic Assessment and plan: patient has two ischial open ulcers w/ chronic osteomyelitis for which he has been treated in the past w/ recurrent antibiotics. At present the wounds are slowly healing but willl probably never totally close without surgery. He is followed by [facility] wound clinic and locally by our [facility] wound care nurses. (3) Major depressive disorder: Status: Chronic Assessment and plan: currently on Duloxetine which was recently increased to 60 mg daily. He has a psychiatrist with whom he follows although Dr. Alfaro has seen him in the past for tele-psych visit Qualifiers: Major depression recurrence: single episode Active/Remission status: currently active Major depression episode severity: moderate Qualified Code(s): F32.1 - Major depressive disorder, single episode, moderate (4) Quadriplegia: Status: Chronic (5) Palliative care encounter: Status: Acute Assessment and plan: Overall Favio is coping. He really would like a more clear plan for the future, someplace where he can be happy cared for etc. I am not certain that his plan of going to an apartment and living on his own is possible given his quadriplegia. I know care management is working with him COVID-19 he is now off quarantine he really has not had any symptoms from this We did not discuss his insomnia. I had recommended that he have lorazepam 1 mg at night. I am well aware of the problems he had with encephalopathy in the past. This is been his 1 request that he is made whenever I ask him what I can do to help him, his insomnia is difficult because of the long nights. I will continue to see Favio regularly Subjective Subjective Patient reports: no new complaints, bowel movement (has ostomy. ) and afebrile; denies blood in stool, nausea, vomiting and shortness of breath Exam Const General: cooperative and no acute distress HENMT Head: atraumatic Ears: hearing grossly normal bilaterally Eyes General: appearance normal, both eyes and all related structures Sclera: sclerae normal Resp Effort & Inspection: normal respiratory effort Auscultation: clear to auscultation bilaterally Cardio Rate: regular rate Rhythm: regular rhythm Heart Sounds: S1 normal and S2 normal GI Inspection: other (ostomy with liquid brown stool in bag. ) Palpation: soft and nontender Skin Rashes: no rashes Wounds: wounds noted (see wound care and nursing notes. ) Extrem General: no pedal edema and no calf tenderness Psych Speech and Movement: speech clear Affect: blunted Objective Last Vital Signs Temp 37.1 C 09/27/21 15:19 Pulse 85 09/27/21 15:19 Resp 16 09/27/21 15:19 BP 127/80 09/27/21 15:19 Pulse Ox 97 09/27/21 15:19
[2021-09-27] MEDS: Mirtazapine 15 MG TAB 7.5 MG PO (20:58)
[2021-09-27] MEDS: Protein Nutritional Supplement 16 GM 1 OUNCE PACKET PO (20:59)
[2021-09-27 22:49] VITALS: BP 122/81; PULSE 82; RESP 15; TEMP 37.1; O2SAT 95
[2021-09-28 07:17] VITALS: BP 131/81; PULSE 77; RESP 16; TEMP 36.3; O2SAT 97
[2021-09-28] MEDS: Normal Saline Flush 10 ML SYR IVP ×3 (08:32→22:57)
[2021-09-28] MEDS: Senna TAB 2 TAB PO ×2 (09:07→21:39)
[2021-09-28] MEDS: Magnesium Chloride 64 MG TABCR 128 MG PO ×2 (09:07→21:39)
[2021-09-28] MEDS: Cholecalciferol (Vitamin D3) 1,000 UNIT TAB 1000 UNITS PO (09:07)
[2021-09-28] MEDS: amLODIPine 10 MG TAB PO (09:08)
[2021-09-28] MEDS: Lactobacillus Acidophilus CAP 1 CAP PO ×3 (09:08→21:38)
[2021-09-28] MEDS: Multivitamin TAB 1 TAB PO (09:08)
[2021-09-28] MEDS: guaiFENesin 600 MG TABCR PO ×2 (09:08→21:38)
[2021-09-28] MEDS: Benzonatate 100 MG CAP PO ×3 (09:08→21:38)
[2021-09-28] MEDS: DULoxetine 30 MG CAP 60 MG PO (09:08)
[2021-09-28] MEDS: Docusate Sodium 100 MG CAP PO ×3 (09:08→21:38)
[2021-09-28] MEDS: Pantoprazole 40 MG TABCR PO (09:08)
[2021-09-28] MEDS: diazePAM 2 MG TAB PO ×3 (09:09→21:39)
[2021-09-28] MEDS: Ascorbic Acid 500 MG TAB PO ×2 (09:09→21:38)
[2021-09-28] MEDS: Enoxaparin 40 MG/0.4 ML SYR SC (12:10)
[2021-09-28 15:18] VITALS: BP 119/82; PULSE 78; RESP 16; TEMP 35.9; O2SAT 95
[2021-09-28] MEDS: Protein Nutritional Supplement 16 GM 1 OUNCE PACKET PO (21:38)
[2021-09-28] MEDS: Mirtazapine 15 MG TAB 7.5 MG PO (21:39)
[2021-09-29 07:33] VITALS: BP 149/82; PULSE 63; RESP 16; TEMP 35.8; O2SAT 94
[2021-09-29] MEDS: Multivitamin TAB 1 TAB PO (07:45)
[2021-09-29] MEDS: Docusate Sodium 100 MG CAP PO ×3 (07:45→21:17)
[2021-09-29] MEDS: diazePAM 2 MG TAB PO ×3 (07:45→21:17)
[2021-09-29] MEDS: Ascorbic Acid 500 MG TAB PO ×2 (07:45→21:17)
[2021-09-29] MEDS: DULoxetine 30 MG CAP 60 MG PO (07:45)
[2021-09-29] MEDS: Magnesium Chloride 64 MG TABCR 128 MG PO ×2 (07:45→21:17)
[2021-09-29] MEDS: guaiFENesin 600 MG TABCR PO ×2 (07:45→21:17)
[2021-09-29] MEDS: Cholecalciferol (Vitamin D3) 1,000 UNIT TAB 1000 UNITS PO (07:45)
[2021-09-29] MEDS: amLODIPine 10 MG TAB PO (07:45)
[2021-09-29] MEDS: Benzonatate 100 MG CAP PO ×3 (07:45→21:17)
[2021-09-29] MEDS: Senna TAB 2 TAB PO ×2 (07:45→21:17)
[2021-09-29] MEDS: Pantoprazole 40 MG TABCR PO (07:46)
[2021-09-29] MEDS: Lactobacillus Acidophilus CAP 1 CAP PO ×3 (07:46→21:17)
[2021-09-29] MEDS: Normal Saline Flush 10 ML SYR IVP ×2 (07:46→21:18)
[2021-09-29] MEDS: Protein Nutritional Supplement 16 GM 1 OUNCE PACKET PO ×2 (14:26→21:18)
[2021-09-29] MEDS: Enoxaparin 40 MG/0.4 ML SYR SC (14:27)
[2021-09-29] MEDS: Mirtazapine 15 MG TAB 7.5 MG PO (21:18)
[2021-09-30] MEDS: Polyethylene Glycol 3350 17 GM PACKET PO (08:00)
[2021-09-30] MEDS: Protein Nutritional Supplement 16 GM 1 OUNCE PACKET PO ×3 (08:00→20:23)
[2021-09-30] MEDS: Ascorbic Acid 500 MG TAB PO ×2 (08:01→20:24)
[2021-09-30] MEDS: Magnesium Chloride 64 MG TABCR 128 MG PO ×2 (08:01→20:23)
[2021-09-30] MEDS: diazePAM 2 MG TAB PO ×3 (08:01→20:24)
[2021-09-30] MEDS: Lactobacillus Acidophilus CAP 1 CAP PO ×3 (08:01→20:23)
[2021-09-30] MEDS: Pantoprazole 40 MG TABCR PO (08:01)
[2021-09-30] MEDS: Normal Saline Flush 10 ML SYR IVP ×2 (08:01→20:22)
[2021-09-30] MEDS: Docusate Sodium 100 MG CAP PO ×3 (08:01→20:24)
[2021-09-30] MEDS: Senna TAB 2 TAB PO ×2 (08:01→20:23)
[2021-09-30] MEDS: Multivitamin TAB 1 TAB PO (08:02)
[2021-09-30] MEDS: amLODIPine 10 MG TAB PO (08:02)
[2021-09-30] MEDS: DULoxetine 30 MG CAP 60 MG PO (08:02)
[2021-09-30] MEDS: guaiFENesin 600 MG TABCR PO ×2 (08:02→20:23)
[2021-09-30] MEDS: Benzonatate 100 MG CAP PO ×3 (08:02→20:23)
[2021-09-30] MEDS: Cholecalciferol (Vitamin D3) 1,000 UNIT TAB 1000 UNITS PO (08:02)
--- NOTE | 2021-09-30 08:12 | W.PALPGNOTE ---
Date of service: 09/30/21 Time of Service: 08:13 Assessment and Plan Assessment and plan (1) Chronic recurrent multifocal osteomyelitis: Status: Chronic (2) S/P colostomy: Status: Chronic (3) Major depressive disorder: Status: Chronic Qualifiers: Active/Remission status: currently active Major depression episode severity: moderate Major depression recurrence: single episode Qualified Code(s): F32.1 - Major depressive disorder, single episode, moderate (4) Quadriplegia: Status: Chronic (5) Insomnia: Status: Acute (6) Palliative care encounter: Status: Acute Assessment and plan: He has services in place and swing bed. I am not certain how this would transfer to outpatient especially if he was living alone. I do not know how realistic it is for him to expect that his daughter will be as helpful as he may need her to be. I have not heard her visiting or helping when he was outpatient in the past. I am glad that he is exploring options. Care management is working with placement He needs to have his Covid booster. He cannot get this for 90 days past his Covid episode. I am glad that he did not have severe problems with Covid Insomnia?we will speak with hospitalist team to consider lorazepam 0.5 mg at 9 PM. Again this is what he finds most disturbing at this point Subjective Subjective Interval history since last seen: When I came to see him. I did review notes but I will come back later this evening. His long-term Medicaid has come in. Staff states that they are looking for placement at this time. Evening: Favio is anxious to move forward with getting out of the institutional lifestyle again. He is glad that he is on swing bed as it is a step to moving on. He has spoken with his daughter and is in the process of applying for housing at the [facility] in [facility]. He feels that he can piece together and always can call on his daughter should he need her in the middle of the night. He plans to live alone with caregivers coming in. He is anxious to get back to some semblance of life and talked about hunting with his friends. He specifically discussed hunting from the cab of the truck since he qualifies as a quadriplegic He has been having visitors and is happy about that His biggest concern is that he cannot sleep at night. It is very difficult for him as he lays in bed for about 10 PM to 2 AM every night trying to sleep. He then ends up sleeping in in the morning and it seems to disrupt staff schedule. He did have lorazepam in the past and that was very helpful. When he went to his episode of encephalopathy many of his drugs were stopped. This is his main concern at this time Exam Narrative Exam Narrative: Sitting in his bed, watching movies and using his iPad. His face looks more relaxed today there is a sparkle in his eye. His breathing is good. His heart is regular. Objective Last Vital Signs Temp 96.4 F L 09/29/21 07:33 Pulse 63 09/29/21 07:33 Resp 16 09/29/21 07:33 BP 149/82 H 09/29/21 07:33 Pulse Ox 94 09/29/21 07:33 Laboratory Tests 09/12/21 09/14/21 08:15 07:07 C-Reactive Protein 4.58 H 3.47 H
[2021-09-30 09:43] VITALS: BP 123/78; PULSE 74; RESP 17; TEMP 36.9; O2SAT 95
--- NOTE | 2021-09-30 11:13 | W.NUTRFU ---
Date of service: 09/30/21 Time of Service: 11:13 Nutrition Note NOTE: Mr. Velasquez continues to refuse meals fairly consistently. His last weight on 09/24 was 79.9 kg. Please weigh patient at least weekly so that we can fully assess his nutritional status which would be tomorrow. Will continue to follow PO, weight, and overall nutritional status. At this time, Nutrition and Scroll Shear Operator will only send food when nursing calls, per request of nursing. Please let us know if you would like us to go back to regular meal service. Time Spent in Nutritional Counseling and Treatment: 0
[2021-09-30] MEDS: Enoxaparin 40 MG/0.4 ML SYR SC (13:30)
[2021-09-30 16:00] VITALS: BP 119/81; PULSE 72; RESP 18; TEMP 37; O2SAT 96
[2021-09-30] MEDS: Mirtazapine 15 MG TAB 7.5 MG PO (20:24)
[2021-10-01] MEDS: Normal Saline Flush 10 ML SYR IVP ×2 (08:21→20:26)
[2021-10-01] MEDS: Protein Nutritional Supplement 16 GM 1 OUNCE PACKET PO ×3 (08:21→20:26)
[2021-10-01] MEDS: Magnesium Chloride 64 MG TABCR 128 MG PO ×2 (08:21→20:27)
[2021-10-01] MEDS: Polyethylene Glycol 3350 17 GM PACKET PO (08:21)
[2021-10-01] MEDS: guaiFENesin 600 MG TABCR PO ×2 (08:22→20:27)
[2021-10-01] MEDS: DULoxetine 30 MG CAP 60 MG PO (08:22)
[2021-10-01] MEDS: Senna TAB 2 TAB PO ×2 (08:22→20:27)
[2021-10-01] MEDS: Ascorbic Acid 500 MG TAB PO ×2 (08:22→20:27)
[2021-10-01] MEDS: Benzonatate 100 MG CAP PO ×3 (08:22→20:28)
[2021-10-01] MEDS: Cholecalciferol (Vitamin D3) 1,000 UNIT TAB 1000 UNITS PO (08:22)
[2021-10-01] MEDS: diazePAM 2 MG TAB PO ×3 (08:22→20:27)
[2021-10-01] MEDS: Multivitamin TAB 1 TAB PO (08:22)
[2021-10-01] MEDS: Docusate Sodium 100 MG CAP PO ×3 (08:22→20:28)
[2021-10-01] MEDS: amLODIPine 10 MG TAB PO (08:22)
[2021-10-01] MEDS: Pantoprazole 40 MG TABCR PO (08:22)
[2021-10-01] MEDS: Lactobacillus Acidophilus CAP 1 CAP PO ×3 (08:22→20:27)
[2021-10-01] MEDS: Enoxaparin 40 MG/0.4 ML SYR SC (13:31)
--- NOTE | 2021-10-01 16:32 | CHAPLAIN ---
I had a short visit with Favio, as he had a visitor this afternoon. I'll try again tomorrow morning before visiting hours. According to Dr. Zhu's Palliative Care notes, Favio has been depressed lately, not eating much and having trouble sleeping. She is addressing all of these issues. He is making plans to have an apartment in [facility] with caregivers coming in. Since he was admitted here, he has wanted to be out on his own.
[2021-10-01 17:55] VITALS: BP 120/78; PULSE 66; RESP 16; TEMP 36.7; O2SAT 97
[2021-10-01] MEDS: Mirtazapine 15 MG TAB PO (21:43)
[2021-10-02] MEDS: Polyethylene Glycol 3350 17 GM PACKET PO (08:03)
[2021-10-02] MEDS: Normal Saline Flush 10 ML SYR IVP ×2 (08:03→20:01)
[2021-10-02] MEDS: Magnesium Chloride 64 MG TABCR 128 MG PO ×2 (08:03→20:02)
[2021-10-02] MEDS: Protein Nutritional Supplement 16 GM 1 OUNCE PACKET PO ×3 (08:03→20:01)
[2021-10-02] MEDS: Docusate Sodium 100 MG CAP PO ×3 (08:04→20:02)
[2021-10-02] MEDS: amLODIPine 10 MG TAB PO (08:04)
[2021-10-02] MEDS: DULoxetine 30 MG CAP 60 MG PO (08:04)
[2021-10-02] MEDS: guaiFENesin 600 MG TABCR PO ×2 (08:04→20:02)
[2021-10-02] MEDS: Cholecalciferol (Vitamin D3) 1,000 UNIT TAB 1000 UNITS PO (08:04)
[2021-10-02] MEDS: diazePAM 2 MG TAB PO ×3 (08:04→20:03)
[2021-10-02] MEDS: Ascorbic Acid 500 MG TAB PO ×2 (08:04→20:02)
[2021-10-02] MEDS: Multivitamin TAB 1 TAB PO (08:04)
[2021-10-02] MEDS: Senna TAB 2 TAB PO ×2 (08:04→20:02)
[2021-10-02] MEDS: Pantoprazole 40 MG TABCR PO (08:04)
[2021-10-02] MEDS: Benzonatate 100 MG CAP PO ×3 (08:04→20:03)
[2021-10-02] MEDS: Lactobacillus Acidophilus CAP 1 CAP PO ×3 (08:04→20:02)
[2021-10-02] MEDS: Dronabinol 2.5 MG CAP 5 MG PO ×2 (10:14→20:03)
[2021-10-02] MEDS: Enoxaparin 40 MG/0.4 ML SYR SC (13:19)
--- NOTE | 2021-10-02 13:51 | W.NUTRFU ---
Date of service: 10/02/21 Time of Service: 13:51 Nutrition Note NOTE: Concerns with Mr. Velasquez?s intake compared to his needs generated nutrition consult. Pt was asleep upon visit today and was left to sleep due to documentation indicating insomnia as a main concern of his. Had his breakfast tray to his side (untouched). Last recorded weight was 09/24 at 79.9kg so unable to assess comparative weight since. Nursing states weight taken via christa and will look into getting current weight. Would suggest ordering weekly weights for patient going forward to assist in his ongoing nutrition care plan. Currently getting liquid protein TID as well as ensure magic cup ice cream supplement in the evening. With a combination of >10kg wt loss in less than a month, patient missing meals due to sleeping more in the daytime hours, and having higher nutrition needs with stage IV decubitus ulcer would consider discussing with Mr Velasquez about possibility of nutrition support via enteral feeding ? possibly nocturnal administration with his continued efforts to try and eat meals and supplements during the day. Volodymyr Alanis NDTR ? industrial engineering intern Time Spent in Nutritional Counseling and Treatment: 15 minutes
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
[2021-10-02] MEDS: Mirtazapine 15 MG TAB PO (21:31)
--- NOTE | 2021-10-03 08:56 | PDOC.CMACT ---
- If Service Date Differs Date of service: 10/03/21 Time of Service: 08:56 Care Management Activity Note S/O: Favio was sitting up in bed when CM met with him. He seemed much more engaged today and was able to maintain eye contact with CM. He shared that his sister is bringing his electric wheelchair to [facility] on Thursday. He hopes to be able to start getting out of bed, becoming more mobile. CM suggested that he have clothes brought in as well so that he can get dressed. Favio agreed with the suggestion and will ask his sister to help with that. Today ALCIDES was able to confirm that Fav[place] [facility] Medicaid has finally been approved. This confirmation came from Favio's case work aide at [facility], Nenita Naranjo. She is currently assisting Favio with finding an apartment, but many other supports need to be in place before Favio can live independently. ALCIDES has reached out to Nenita to discuss other options as well. Favio continues to use his Ipad daily to communicate with friends and family, watch movies and play music. Now that his Covid isolation has ended, he is again receiving visitors. His mother comes regularly and yesterday his younger brother visited. A: Favio is a 56 year old man admitted on 09/01/21 with a UTI P: Favio's discharge plan remains unclear at this time. [place] [facility] [place] has been approved, removing the major barrier to services that has plagued Favio for months. ALCIDES is working with his case work aide Nenita Naranjo at [facility] to find appropriate placement for Favio. As he has not been hospital level of care for some time, efforts to find temporary placement are underway until a more permanent solution can be found. Referrals have been sent to [facility], [facility], [facility] and [facility]. CM will continue to support Favio and assess for discharge planning concerns. cc:
[2021-10-03] MEDS: guaiFENesin 600 MG TABCR PO ×2 (09:52→19:57)
[2021-10-03] MEDS: Dronabinol 2.5 MG CAP 5 MG PO ×2 (09:52→19:57)
[2021-10-03] MEDS: Senna TAB 2 TAB PO ×2 (09:52→19:58)
[2021-10-03] MEDS: DULoxetine 30 MG CAP 60 MG PO (09:52)
[2021-10-03] MEDS: amLODIPine 10 MG TAB PO (09:53)
[2021-10-03] MEDS: Multivitamin TAB 1 TAB PO (09:53)
[2021-10-03] MEDS: Magnesium Chloride 64 MG TABCR 128 MG PO ×2 (09:53→19:57)
[2021-10-03] MEDS: Pantoprazole 40 MG TABCR PO (09:53)
[2021-10-03] MEDS: Cholecalciferol (Vitamin D3) 1,000 UNIT TAB 1000 UNITS PO (09:53)
[2021-10-03] MEDS: Polyethylene Glycol 3350 17 GM PACKET PO (09:54)
[2021-10-03] MEDS: Docusate Sodium 100 MG CAP PO ×3 (09:54→19:57)
[2021-10-03] MEDS: Ascorbic Acid 500 MG TAB PO ×2 (09:54→19:57)
[2021-10-03] MEDS: Lactobacillus Acidophilus CAP 1 CAP PO ×3 (09:54→19:58)
[2021-10-03] MEDS: Protein Nutritional Supplement 16 GM 1 OUNCE PACKET PO ×3 (09:54→19:58)
[2021-10-03] MEDS: diazePAM 2 MG TAB PO ×3 (09:54→19:57)
[2021-10-03] MEDS: Benzonatate 100 MG CAP PO ×3 (09:54→19:57)
[2021-10-03] MEDS: Normal Saline Flush 10 ML SYR IVP ×2 (09:56→19:59)
[2021-10-03] MEDS: Enoxaparin 40 MG/0.4 ML SYR SC (11:42)
[2021-10-03 16:33] VITALS: BP 122/79; PULSE 89; RESP 18; TEMP 37.3; O2SAT 98
[2021-10-03] MEDS: Mirtazapine 15 MG TAB PO (21:23)
[2021-10-04 09:58] VITALS: BP 117/74; PULSE 71; RESP 18; TEMP 36.9; O2SAT 97
[2021-10-04] MEDS: Dronabinol 2.5 MG CAP 5 MG PO ×2 (10:14→20:33)
[2021-10-04] MEDS: Protein Nutritional Supplement 16 GM 1 OUNCE PACKET PO ×3 (10:14→20:33)
[2021-10-04] MEDS: Polyethylene Glycol 3350 17 GM PACKET PO (10:14)
[2021-10-04] MEDS: DULoxetine 30 MG CAP 60 MG PO (10:15)
[2021-10-04] MEDS: Senna TAB 2 TAB PO ×2 (10:15→20:33)
[2021-10-04] MEDS: Docusate Sodium 100 MG CAP PO ×3 (10:15→20:33)
[2021-10-04] MEDS: Magnesium Chloride 64 MG TABCR 128 MG PO ×2 (10:15→20:33)
[2021-10-04] MEDS: Benzonatate 100 MG CAP PO ×3 (10:15→20:34)
[2021-10-04] MEDS: Cholecalciferol (Vitamin D3) 1,000 UNIT TAB 1000 UNITS PO (10:15)
[2021-10-04] MEDS: diazePAM 2 MG TAB PO ×3 (10:15→20:34)
[2021-10-04] MEDS: guaiFENesin 600 MG TABCR PO ×2 (10:15→20:33)
[2021-10-04] MEDS: amLODIPine 10 MG TAB PO (10:16)
[2021-10-04] MEDS: Lactobacillus Acidophilus CAP 1 CAP PO ×3 (10:16→20:34)
[2021-10-04] MEDS: Multivitamin TAB 1 TAB PO (10:16)
[2021-10-04] MEDS: Pantoprazole 40 MG TABCR PO (10:16)
[2021-10-04] MEDS: Ascorbic Acid 500 MG TAB PO ×2 (10:16→20:34)
[2021-10-04] MEDS: Normal Saline Flush 10 ML SYR IVP ×2 (12:27→20:34)
[2021-10-04] MEDS: Enoxaparin 40 MG/0.4 ML SYR SC (13:35)
--- NOTE | 2021-10-04 20:20 | W.PM.PROGNOT ---
Date of Service Date of service: 10/04/21 Time of Service: 20:20 Assessment and Plan Assessment and plan (1) Discharge planning issues: Status: Acute Assessment and plan: CM is working on disposition and has placed multiple referrals to area SNF. Favio is adamant that he is not going to a penitentiary and they is not going to stay here in the hospital through [place]. He is determined to go to the same apartment complex here in [place] [employer] where his daughter lives. I think Favio would do well in a family fdc where he can be around people but not feel like he is living in an institution. (2) Constipation due to neurogenic bowel: Status: Acute Assessment and plan: patient require a bowel regimen of regular stool softeners and laxatives w/ prn use of enemas and occasional disimpaction. Favio states he had a bowel movement yesterday. (3) Chronic recurrent multifocal osteomyelitis: Status: Chronic Assessment and plan: patient has two ischial open ulcers w/ chronic osteomyelitis for which he has been treated in the past w/ recurrent antibiotics. At present the wounds are slowly healing but willl probably never totally close without surgery. He is followed by [facility] wound clinic and locally by our [facility] wound care nurses. (4) S/P colostomy: Status: Chronic (5) Indwelling catheter replaced: Status: Resolved Assessment and plan: SPC is routinely changed monthly but d/t it being plugged and causing recent UTI it had to be changed out more frequently (6) Major depressive disorder: Status: Chronic Assessment and plan: currently on Duloxetine which was recently increased to 60 mg daily. He has a psychiatrist with whom he follows although Dr. Alfaro has seen him in the past for tele-psych visit. I will increase his Remeron to 30 mg nightly. Continue Cymbalta at 60 mg daily. Await further recommendation from psychiatrist. Qualifiers: Major depression recurrence: single episode Active/Remission status: currently active Major depression episode severity: moderate Qualified Code(s): F32.1 - Major depressive disorder, single episode, moderate (7) Neurogenic bladder: Status: Chronic (8) Quadriplegia: Status: Chronic (9) DVT prophylaxis: Status: Acute Assessment and plan: cont. enoxaparin while hospitalized. Subjective Subjective Interval history since last seen: Favio is discouraged from being in the hospital for such a prolonged period of time. He has been trying to work on getting an apartment in the same building where his daughter lives. Favio has unrealistic goals and that he feels that he can live on his own in his own apartment. When I asked him about how he is going to care for himself he seems to think that his daughter would help him out although he has got no assurance from her that she is going to be available 25/05. He also indicates that he has had visiting nursing caregivers before however I explained to him that there are only available on a limited amount of time per day and limited number of days per week. While I told her my respect that it is his decision as to where he will live I feel that he needs to put everything in perspective and consider all the ramifications of living on his own in terms of how he is going to get groceries how he is going to prepare his meals how he is going to clean himself up and take care of his ostomy as well as his wounds. Favio states has not been sleeping well at night but I explained to him that he is on many medications to help him sleep including increasing doses of Remeron he has been tried on zolpidem which gave him nightmares he has been tried on melatonin w/o success. I will increase his Remeron to 30 mg nightly. This was just recently increased from 7.5 to [address] Zhu suggested adding lorazepam at night. However, Favio is already depressed and I would prefer to adjust his antidepressants first. Exam Narrative Exam Narrative: There is sitting up in his bed watching videos on his computer using his computer pen with his assistive device holding the pen in his hand. He is alert and oriented and answers my questions appropriately albeit with limited insight. His lungs are clear to auscultation his heart is regular without murmur his abdomen is soft and nontender nondistended with normal bowel sounds. Colostomy bag is intact there is no erythema or induration around the ostomy. Suprapubic catheter is in place and the catheter is draining clear yellow urine. I did not look at his ischial decubitus wounds this evening. Objective Last Vital Signs Temp 36.9 C 10/04/21 09:58 Pulse 71 10/04/21 09:58 Resp 18 10/04/21 09:58 BP 117/74 10/04/21 09:58 Pulse Ox 97 10/04/21 09:58
[2021-10-04] MEDS: Mirtazapine 15 MG TAB PO ×2 (21:22→23:17)
[2021-10-05 02:53] VITALS: BP 138/88; PULSE 55; RESP 16; TEMP 37; O2SAT 96
[2021-10-05 07:46] VITALS: BP 130/83; PULSE 69; RESP 18; TEMP 36.8; O2SAT 95
[2021-10-05] MEDS: Protein Nutritional Supplement 16 GM 1 OUNCE PACKET PO ×3 (10:09→20:39)
[2021-10-05] MEDS: Polyethylene Glycol 3350 17 GM PACKET PO (10:09)
[2021-10-05] MEDS: Lactobacillus Acidophilus CAP 1 CAP PO ×3 (10:10→20:41)
[2021-10-05] MEDS: Docusate Sodium 100 MG CAP PO ×3 (10:10→20:42)
[2021-10-05] MEDS: Cholecalciferol (Vitamin D3) 1,000 UNIT TAB 1000 UNITS PO (10:10)
[2021-10-05] MEDS: amLODIPine 10 MG TAB PO (10:10)
[2021-10-05] MEDS: Magnesium Chloride 64 MG TABCR 128 MG PO ×2 (10:10→20:41)
[2021-10-05] MEDS: DULoxetine 30 MG CAP 60 MG PO (10:10)
[2021-10-05] MEDS: Dronabinol 2.5 MG CAP 5 MG PO ×2 (10:10→20:40)
[2021-10-05] MEDS: Senna TAB 2 TAB PO ×2 (10:11→20:40)
[2021-10-05] MEDS: Benzonatate 100 MG CAP PO ×3 (10:11→20:40)
[2021-10-05] MEDS: diazePAM 2 MG TAB PO ×3 (10:11→20:42)
[2021-10-05] MEDS: Ascorbic Acid 500 MG TAB PO ×2 (10:11→20:42)
[2021-10-05] MEDS: Pantoprazole 40 MG TABCR PO (10:11)
[2021-10-05] MEDS: Multivitamin TAB 1 TAB PO (10:11)
[2021-10-05] MEDS: guaiFENesin 600 MG TABCR PO ×2 (10:11→20:41)
[2021-10-05] MEDS: Normal Saline Flush 10 ML SYR IVP ×2 (10:12→20:40)
[2021-10-05] MEDS: Enoxaparin 40 MG/0.4 ML SYR SC (14:51)
[2021-10-05] MEDS: Mirtazapine 15 MG TAB 30 MG PO (20:41)
--- NOTE | 2021-10-06 08:03 | WOUNDCARE ---
Wound Care Report Late entry from October 05. Did Ischial dressing changes with peer nurse and Dr. Murillo present. Wound on left Ischial has decreased in depth and size. 50 % granulation tissue. Right Ischial has some improvement with decrease in depth and size. However base was predominately slough. Dr. Murillo and I are in agreement that Current treatment as recommended by Wound care at [facility] is a good plan and will continue this order for now.
[2021-10-06] MEDS: Normal Saline Flush 10 ML SYR IVP ×2 (10:12→19:30)
[2021-10-06] MEDS: Protein Nutritional Supplement 16 GM 1 OUNCE PACKET PO ×3 (10:12→19:28)
[2021-10-06] MEDS: Ascorbic Acid 500 MG TAB PO ×2 (10:13→19:36)
[2021-10-06] MEDS: Polyethylene Glycol 3350 17 GM PACKET PO (10:13)
[2021-10-06] MEDS: DULoxetine 30 MG CAP 60 MG PO (10:13)
[2021-10-06] MEDS: Magnesium Chloride 64 MG TABCR 128 MG PO ×2 (10:14→19:34)
[2021-10-06] MEDS: Dronabinol 2.5 MG CAP 5 MG PO ×2 (10:14→19:34)
[2021-10-06] MEDS: diazePAM 2 MG TAB PO ×3 (10:14→19:35)
[2021-10-06] MEDS: guaiFENesin 600 MG TABCR PO ×2 (10:14→19:36)
[2021-10-06] MEDS: Benzonatate 100 MG CAP PO ×3 (10:14→19:34)
[2021-10-06] MEDS: amLODIPine 10 MG TAB PO (10:14)
[2021-10-06] MEDS: Pantoprazole 40 MG TABCR PO (10:15)
[2021-10-06] MEDS: Cholecalciferol (Vitamin D3) 1,000 UNIT TAB 1000 UNITS PO (10:15)
[2021-10-06] MEDS: Senna TAB 2 TAB PO ×2 (10:15→19:35)
[2021-10-06] MEDS: Multivitamin TAB 1 TAB PO (10:15)
[2021-10-06] MEDS: Docusate Sodium 100 MG CAP PO ×3 (10:15→19:36)
[2021-10-06] MEDS: Lactobacillus Acidophilus CAP 1 CAP PO ×3 (10:15→19:37)
[2021-10-06] MEDS: Enoxaparin 40 MG/0.4 ML SYR SC (12:07)
[2021-10-06 14:35] VITALS: BP 119/76; PULSE 85; RESP 18; TEMP 36.6; O2SAT 97
--- NOTE | 2021-10-06 14:35 | NUR.NOTE ---
Nursing Note: Patient refused am care from staff. He also refused to Dot to his wheel chair. he did take 1400 meds from me. At that point he requested to be set up for lunch
[2021-10-06] MEDS: Mirtazapine 15 MG TAB 30 MG PO (19:32)
[2021-10-07 06:25] VITALS: BP 113/78; PULSE 73; RESP 14; TEMP 36.7; O2SAT 98
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
[2021-10-07] MEDS: Pantoprazole 40 MG TABCR PO (09:40)
[2021-10-07] MEDS: Polyethylene Glycol 3350 17 GM PACKET PO (09:40)
[2021-10-07] MEDS: Protein Nutritional Supplement 16 GM 1 OUNCE PACKET PO ×3 (09:40→20:44)
[2021-10-07] MEDS: amLODIPine 10 MG TAB PO (09:40)
[2021-10-07] MEDS: Dronabinol 2.5 MG CAP 5 MG PO ×2 (09:41→20:44)
[2021-10-07] MEDS: Cholecalciferol (Vitamin D3) 1,000 UNIT TAB 1000 UNITS PO (09:41)
[2021-10-07] MEDS: diazePAM 2 MG TAB PO ×3 (09:41→20:45)
[2021-10-07] MEDS: Magnesium Chloride 64 MG TABCR 128 MG PO ×2 (09:42→20:44)
[2021-10-07] MEDS: DULoxetine 30 MG CAP 60 MG PO (09:42)
[2021-10-07] MEDS: guaiFENesin 600 MG TABCR PO ×2 (09:42→20:45)
[2021-10-07] MEDS: Senna TAB 2 TAB PO ×2 (09:42→20:44)
[2021-10-07] MEDS: Benzonatate 100 MG CAP PO ×3 (09:43→20:45)
[2021-10-07] MEDS: Ascorbic Acid 500 MG TAB PO ×2 (09:43→20:45)
[2021-10-07] MEDS: Multivitamin TAB 1 TAB PO (09:43)
[2021-10-07] MEDS: Normal Saline Flush 10 ML SYR IVP (09:43)
[2021-10-07] MEDS: Docusate Sodium 100 MG CAP PO ×3 (09:43→20:45)
[2021-10-07] MEDS: Lactobacillus Acidophilus CAP 1 CAP PO ×3 (09:43→20:45)
[2021-10-07] MEDS: Enoxaparin 40 MG/0.4 ML SYR SC (12:16)
[2021-10-07] MEDS: Bacitracin 1 PACKET TP (14:18)
[2021-10-07 14:48] VITALS: BP 135/82; PULSE 67; RESP 20; TEMP 36.4; O2SAT 96
[2021-10-07] MEDS: Mirtazapine 15 MG TAB 30 MG PO (20:44)
[2021-10-07] MEDS: LORazepam 1 MG TAB PO (20:45)
[2021-10-08] MEDS: Pantoprazole 40 MG TABCR PO (09:24)
[2021-10-08] MEDS: Polyethylene Glycol 3350 17 GM PACKET PO (09:24)
[2021-10-08] MEDS: DULoxetine 30 MG CAP 60 MG PO (09:24)
[2021-10-08] MEDS: Protein Nutritional Supplement 16 GM 1 OUNCE PACKET PO ×3 (09:24→20:35)
[2021-10-08] MEDS: Lactobacillus Acidophilus CAP 1 CAP PO ×3 (09:25→20:36)
[2021-10-08] MEDS: diazePAM 2 MG TAB PO ×3 (09:25→20:36)
[2021-10-08] MEDS: Multivitamin TAB 1 TAB PO (09:25)
[2021-10-08] MEDS: Senna TAB 2 TAB PO ×2 (09:25→20:35)
[2021-10-08] MEDS: Docusate Sodium 100 MG CAP PO ×3 (09:25→20:36)
[2021-10-08] MEDS: Ascorbic Acid 500 MG TAB PO ×2 (09:25→20:36)
[2021-10-08] MEDS: Magnesium Chloride 64 MG TABCR 128 MG PO ×2 (09:25→20:35)
[2021-10-08] MEDS: guaiFENesin 600 MG TABCR PO ×2 (09:26→20:36)
[2021-10-08] MEDS: Cholecalciferol (Vitamin D3) 1,000 UNIT TAB 1000 UNITS PO (09:26)
[2021-10-08] MEDS: Benzonatate 100 MG CAP PO ×3 (09:26→20:44)
[2021-10-08] MEDS: Dronabinol 2.5 MG CAP 5 MG PO ×2 (09:26→20:35)
[2021-10-08] MEDS: amLODIPine 10 MG TAB PO (09:26)
[2021-10-08 10:59] VITALS: BP 153/89; PULSE 88; RESP 18; TEMP 36.9; O2SAT 95
[2021-10-08] MEDS: Enoxaparin 40 MG/0.4 ML SYR SC (11:54)
[2021-10-08] MEDS: LORazepam 1 MG TAB PO (20:36)
[2021-10-08] MEDS: Mirtazapine 15 MG TAB 30 MG PO (20:36)
[2021-10-09 09:52] LABS: Abs Immature Grans 0.03 10^3/uL (0.0-0.06); Absolute Basophil Count 0.04 10^3/uL (0.0-0.2); Absolute Eosinophil Count 0.38 10^3/uL (0.0-0.7); Absolute Lymphocyte Count 2.08 10^3/uL (1.2-3.4); Absolute Monocyte Count 0.64 10^3/uL (0.1-0.8); Anion Gap 6.1 mmol/L (3-11); BUN 24 mg/dL (7-18); Basophils % 0.5; CO2 27.9 mmol/L (21.0-32.0); CREATININE 0.7 mg/dL (0.70-1.30); Calcium 9.1 mg/dL (8.5-10.1); Chloride 106 mmol/L (98-107); Eosinophils % 4.3; Glucose 101 mg/dL (74-106); HGB 11.5 g/dL (13.5-17.5); Immature Grans % 0.3; Lymphocytes % 23.4; MCH 28.5 pg (27.0-33.0); MCHC 31.9 % (32.0-36.0); MCV 89.1 fL (80-95); MPV 10.7 fL (8.0-11.0); Monocytes % 7.2; Neutrophils % 64.3; Nucleated RBC 0 %; Platelet Count 188 10^3/uL (130-400); Potassium 3.7 mmol/L (3.5-5.1); RBC 4.04 10^6/uL (4.36-5.78); RDW 13.6 % (11.8-14.1); RDW-SD 44.4 fL; Sodium 140 mmol/L (136-145); WBC 8.87 10^3/uL (4.4-10.8)
[2021-10-09] MEDS: Protein Nutritional Supplement 16 GM 1 OUNCE PACKET PO ×3 (09:53→19:56)
[2021-10-09] MEDS: Pantoprazole 40 MG TABCR PO (09:53)
[2021-10-09] MEDS: Lactobacillus Acidophilus CAP 1 CAP PO ×3 (09:53→19:58)
[2021-10-09] MEDS: DULoxetine 30 MG CAP 60 MG PO (09:53)
[2021-10-09] MEDS: Cholecalciferol (Vitamin D3) 1,000 UNIT TAB 1000 UNITS PO (09:53)
[2021-10-09] MEDS: Ascorbic Acid 500 MG TAB PO ×2 (09:53→19:58)
[2021-10-09] MEDS: Polyethylene Glycol 3350 17 GM PACKET PO (09:53)
[2021-10-09] MEDS: guaiFENesin 600 MG TABCR PO ×2 (09:53→19:57)
[2021-10-09] MEDS: amLODIPine 10 MG TAB PO (09:53)
[2021-10-09] MEDS: Multivitamin TAB 1 TAB PO (09:53)
[2021-10-09] MEDS: diazePAM 2 MG TAB PO ×3 (09:53→19:58)
[2021-10-09] MEDS: Benzonatate 100 MG CAP PO ×3 (09:54→19:59)
[2021-10-09] MEDS: Dronabinol 2.5 MG CAP 5 MG PO ×2 (09:54→20:00)
[2021-10-09] MEDS: Magnesium Chloride 64 MG TABCR 128 MG PO ×2 (09:54→19:56)
[2021-10-09] MEDS: Senna TAB 2 TAB PO ×2 (09:54→19:57)
[2021-10-09] MEDS: Docusate Sodium 100 MG CAP PO ×3 (09:54→19:58)
[2021-10-09 10:00] VITALS: BP 136/89; PULSE 71; RESP 16; TEMP 37; O2SAT 94
[2021-10-09 10:05] LABS: C-Reactive Protein 1.45 mg/dL (0.0-0.3); Magnesium 1.9 mg/dL (1.8-2.4)
[2021-10-09 10:15] LABS: Procalcitonin < 0.1 ng/mL
[2021-10-09] MEDS: Enoxaparin 40 MG/0.4 ML SYR SC (11:35)
[2021-10-09] MEDS: LORazepam 1 MG TAB PO (19:59)
[2021-10-09] MEDS: Mirtazapine 15 MG TAB 30 MG PO (19:59)
[2021-10-10] MEDS: Ascorbic Acid 500 MG TAB PO ×2 (10:50→21:19)
[2021-10-10] MEDS: Cholecalciferol (Vitamin D3) 1,000 UNIT TAB 1000 UNITS PO (10:50)
[2021-10-10] MEDS: amLODIPine 10 MG TAB PO (10:50)
[2021-10-10] MEDS: diazePAM 2 MG TAB PO ×3 (10:50→21:19)
[2021-10-10] MEDS: Benzonatate 100 MG CAP PO ×3 (10:50→21:18)
[2021-10-10] MEDS: Docusate Sodium 100 MG CAP PO ×3 (10:50→21:18)
[2021-10-10] MEDS: Dronabinol 2.5 MG CAP 5 MG PO ×2 (10:51→21:18)
[2021-10-10] MEDS: guaiFENesin 600 MG TABCR PO ×2 (10:51→21:18)
[2021-10-10] MEDS: DULoxetine 30 MG CAP 60 MG PO (10:51)
[2021-10-10] MEDS: Lactobacillus Acidophilus CAP 1 CAP PO ×3 (10:51→21:19)
[2021-10-10] MEDS: Multivitamin TAB 1 TAB PO (10:51)
[2021-10-10] MEDS: Magnesium Chloride 64 MG TABCR 128 MG PO ×2 (10:51→21:19)
[2021-10-10] MEDS: Senna TAB 2 TAB PO ×2 (10:52→21:18)
[2021-10-10] MEDS: Protein Nutritional Supplement 16 GM 1 OUNCE PACKET PO ×3 (10:52→21:17)
[2021-10-10] MEDS: Polyethylene Glycol 3350 17 GM PACKET PO (10:52)
[2021-10-10] MEDS: Pantoprazole 40 MG TABCR PO (10:52)
--- NOTE | 2021-10-10 11:50 | CMACTNOTE_ITS ---
- If Service Date Differs Date of service: 10/10/21 Time of Service: 11:50 Care Management Activity Note S/O: Favio was sitting up in bed when CM met with him. He seemed much more engaged today and was able to maintain eye contact with CM. For the last couple of days he has been sleeping much of the time and slow to engage in conversation. ALCIDES asked about the appointment with Dr. Hudson Miller at [facility] that he was scheduled for in August. Favio shared that because he was on quarantine for Covid at that time, he was unable to keep the appointment. ALCIDES contacted Dr. Miller's office at the [facility] to reschedule but had to leave a message. Both numbers are message only. Favio continues to enjoy using his Ipad for movies, music and communication and talks with family and friends on the phone. His psychiatrist has been away for the past 6 weeks but will be back next week. Favio hopes to be able to have a video session with her at that time. A: Favio is a 56 year old man admitted on 09/01/21 with a UTI P: Favio's discharge plan remains unclear at this time. His alf Medicaid has been approved, removing the major barrier to services that has plagued Favio for months. ALCIDES is working with his case finisher Nenita Naranjo at [facility] to find appropriate placement for Favio. As he has not been hospital level of care for some time, efforts to find temporary placement are underway until a more permanent solution can be found. Referrals have been sent to [facility], [facility], [facility], [place] and [facility]. In addition, Nenita has pursued [facility] as an option and is helping to complete applications for the 3 agencies serving this area.ALCIDES will continue to support Favio and assess for discharge planning concerns.
[2021-10-10] MEDS: Enoxaparin 40 MG/0.4 ML SYR SC (14:39)
--- NOTE | 2021-10-10 15:52 | CHAPLAIN ---
Favio was listening to [employer], his favorite band, when I stopped in. He told me the Care Management is also helping consider a [facility] as an alternative to a long-term care facility. Favio's long-term medicare was recently approved, so that will help financially. His mom continues to visit often and Dr. Zhu sees him as his Palliative Care provider.
[2021-10-10 17:02] VITALS: BP 123/79; PULSE 71; RESP 17; TEMP 37.3; O2SAT 97
[2021-10-10] MEDS: LORazepam 1 MG TAB PO (21:19)
[2021-10-10] MEDS: Mirtazapine 15 MG TAB 30 MG PO (21:19)
[2021-10-11 09:11] LABS: Abs Immature Grans 0.02 10^3/uL (0.0-0.06); Absolute Basophil Count 0.04 10^3/uL (0.0-0.2); Absolute Eosinophil Count 0.41 10^3/uL (0.0-0.7); Absolute Lymphocyte Count 1.63 10^3/uL (1.2-3.4); Absolute Monocyte Count 0.47 10^3/uL (0.1-0.8); Absolute Neutrophil Count 4.85 10^3/uL (1.2-6.7); Basophils % 0.5; Eosinophils % 5.5; HCT 36.2 % (40.0-50.0); HGB 11.7 g/dL (13.5-17.5); Immature Grans % 0.3; MCH 29.1 pg (27.0-33.0); MCHC 32.3 % (32.0-36.0); MPV 10.6 fL (8.0-11.0); Monocytes % 6.3; Neutrophils % 65.4; Nucleated RBC 0 %; Platelet Count 192 10^3/uL (130-400); RBC 4.02 10^6/uL (4.36-5.78); RDW 13.3 % (11.8-14.1); RDW-SD 44.4 fL; WBC 7.42 10^3/uL (4.4-10.8)
[2021-10-11 09:43] LABS: Anion Gap 9.9 mmol/L (3-11); BUN 28 mg/dL (7-18); C-Reactive Protein 1.64 mg/dL (0.0-0.3); CO2 25.1 mmol/L (21.0-32.0); CREATININE 0.7 mg/dL (0.70-1.30); Calcium 8.9 mg/dL (8.5-10.1); Chloride 106 mmol/L (98-107); Glucose 93 mg/dL (74-106); Magnesium 2.1 mg/dL (1.8-2.4); Potassium 3.7 mmol/L (3.5-5.1); Sodium 141 mmol/L (136-145)
[2021-10-11 09:55] LABS: Procalcitonin < 0.1 ng/mL
[2021-10-11] MEDS: amLODIPine 10 MG TAB PO (10:13)
[2021-10-11] MEDS: Ascorbic Acid 500 MG TAB PO ×2 (10:14→19:45)
[2021-10-11] MEDS: diazePAM 2 MG TAB PO ×3 (10:15→19:46)
[2021-10-11] MEDS: Docusate Sodium 100 MG CAP PO ×3 (10:15→19:46)
[2021-10-11] MEDS: DULoxetine 30 MG CAP 60 MG PO (10:15)
[2021-10-11] MEDS: Benzonatate 100 MG CAP PO ×3 (10:15→19:46)
[2021-10-11] MEDS: Dronabinol 2.5 MG CAP 5 MG PO ×2 (10:15→19:46)
[2021-10-11] MEDS: Cholecalciferol (Vitamin D3) 1,000 UNIT TAB 1000 UNITS PO (10:15)
[2021-10-11] MEDS: Lactobacillus Acidophilus CAP 1 CAP PO ×3 (10:16→19:47)
[2021-10-11] MEDS: guaiFENesin 600 MG TABCR PO ×2 (10:16→19:47)
[2021-10-11] MEDS: Magnesium Chloride 64 MG TABCR 128 MG PO ×2 (10:17→19:47)
[2021-10-11] MEDS: Senna TAB 2 TAB PO ×2 (10:17→19:48)
[2021-10-11] MEDS: Polyethylene Glycol 3350 17 GM PACKET PO (10:17)
[2021-10-11] MEDS: Multivitamin TAB 1 TAB PO (10:17)
[2021-10-11] MEDS: Pantoprazole 40 MG TABCR PO (10:17)
[2021-10-11] MEDS: Protein Nutritional Supplement 16 GM 1 OUNCE PACKET PO ×3 (10:17→19:48)
[2021-10-11] MEDS: Enoxaparin 40 MG/0.4 ML SYR SC (13:31)
--- NOTE | 2021-10-11 15:50 | W.NUTRFU ---
Date of service: 10/11/21 Time of Service: 15:50 Nutrition Note NOTE: Follow up with Mr Velasquez and noted recent weight taken and this is very much appreciated. His weight recorded as 172.5kg and this was most likely measured in pounds and transcribed as kg as it makes more clinical sense after converting to 78.4kg ? which is a 1.5kg loss from his last recorded weight on 09/24/21 (79.9kg). This weight change would not currently warrant enteral nutrition support as an intervention (<2% wt loss x 17 days). His intake with assistance is still fair/good and protein supplement TID most likely helping to prevent/delay wasting. Will continue to follow up on Mr. Velasquez?s intake from trays and supplements and check in on him to see if any variation of supplements would be preferred to avoid monotony and keep oral intake of protein and energy as consistent as possible. Volodymyr Alanis NDTR ? Operational Assistant Time Spent in Nutritional Counseling and Treatment: 15 minutes
--- NOTE | 2021-10-11 17:38 | W.PM.PROGNOT ---
Date of Service Date of service: 10/11/21 Time of Service: 17:38 Assessment and Plan Assessment and plan (1) Cough: Status: Acute (2) Decubitus skin ulcer: Status: Acute Qualifiers: Pressure injury location: buttock Pressure injury stage: unstageable Laterality: unspecified laterality Qualified Code(s): L89.300 - Pressure ulcer of unspecified buttock, unstageable (3) Insomnia: Status: Acute (4) Constipation due to neurogenic bowel: Status: Acute (5) Quadriplegia: Status: Chronic Assessment and plan: Continue wound care under SB1. I have ordered chest PT and IS. The patient has been sleeping on current regimen. Continue bowel regimen - ostomy output good. Care management addressing placement. Subjective Subjective Interval history since last seen: Favio states that his cough is gone today. It was just a frog in my throat. He was noted to have a wet cough yesterday but was not excited about getting a CXR. Denies dizziness, chest pain, shortness of breath, nausea. Has been sleeping at night. Agrees to participate with chest PT. Exam Narrative Exam Narrative: General: Pleasant middle-aged male who is laying comfortably in bed, working on his tablet, A&ox3, no coughing today HEENT: EOMI, MMM Heart: RRR, no m/r/g Lungs: CTAB anteriorly Abdomen: soft, nontender, nondistended Extremities: in B heel protectors Objective Last Vital Signs Temp 37.3 C 10/10/21 17:02 Pulse 71 10/10/21 17:02 Resp 17 10/10/21 17:02 BP 123/79 10/10/21 17:02 Pulse Ox 97 10/10/21 17:02 Laboratory Results - last 24 hr 10/11/21 10/11/21 10/11/21 08:50 08:50 08:50 WBC 7.42 RBC 4.02 L Hgb 11.7 L Hct 36.2 L MCV 90.0 MCH 29.1 MCHC 32.3 RDW 13.3 Plt Count 192 MPV 10.6 Immature Gran % 0.3 Neutrophils % 65.4 Lymphocytes % 22.0 Monocytes % 6.3 Eosinophils % 5.5 Basophils % 0.5 Nucleated RBC % 0 Absolute Neutrophils 4.85 Absolute Lymphocytes 1.63 Absolute Monocytes 0.47 Absolute Eosinophils 0.41 Absolute Basophils 0.04 Sodium 141 Potassium 3.7 Chloride 106 Carbon Dioxide 25.1 Anion Gap 9.9 BUN 28 H Creatinine 0.7 Estimated GFR/1.73 m2 >= 60.00 Glucose 93 Calcium 8.9 Magnesium 2.1 C-Reactive Protein 1.64 H Procalcitonin < 0.1
[2021-10-11] MEDS: LORazepam 1 MG TAB PO (19:47)
[2021-10-11] MEDS: Mirtazapine 15 MG TAB 30 MG PO (19:48)
[2021-10-12] MEDS: Benzonatate 100 MG CAP PO ×3 (10:31→20:32)
[2021-10-12] MEDS: amLODIPine 10 MG TAB PO (10:31)
[2021-10-12] MEDS: Docusate Sodium 100 MG CAP PO ×3 (10:31→20:32)
[2021-10-12] MEDS: Dronabinol 2.5 MG CAP 5 MG PO ×2 (10:31→20:31)
[2021-10-12] MEDS: diazePAM 2 MG TAB PO ×3 (10:31→20:32)
[2021-10-12] MEDS: Cholecalciferol (Vitamin D3) 1,000 UNIT TAB 1000 UNITS PO (10:31)
[2021-10-12] MEDS: Ascorbic Acid 500 MG TAB PO ×2 (10:31→20:32)
[2021-10-12] MEDS: Lactobacillus Acidophilus CAP 1 CAP PO ×3 (10:32→20:31)
[2021-10-12] MEDS: Magnesium Chloride 64 MG TABCR 128 MG PO ×2 (10:32→20:31)
[2021-10-12] MEDS: DULoxetine 30 MG CAP 60 MG PO (10:32)
[2021-10-12] MEDS: guaiFENesin 600 MG TABCR PO ×2 (10:32→20:31)
[2021-10-12] MEDS: Multivitamin TAB 1 TAB PO (10:32)
[2021-10-12] MEDS: Protein Nutritional Supplement 16 GM 1 OUNCE PACKET PO ×3 (10:33→20:30)
[2021-10-12] MEDS: Pantoprazole 40 MG TABCR PO (10:33)
[2021-10-12] MEDS: Polyethylene Glycol 3350 17 GM PACKET PO (10:33)
[2021-10-12] MEDS: Senna TAB 2 TAB PO ×2 (10:33→20:31)
[2021-10-12 11:30] VITALS: BP 122/73; PULSE 70; RESP 18; TEMP 37.2; O2SAT 96
[2021-10-12] MEDS: Enoxaparin 40 MG/0.4 ML SYR SC (13:32)
[2021-10-12] MEDS: Mirtazapine 15 MG TAB 30 MG PO (20:31)
[2021-10-12] MEDS: LORazepam 1 MG TAB PO (20:32)
[2021-10-13] MEDS: Dronabinol 2.5 MG CAP 5 MG PO ×2 (10:22→21:22)
[2021-10-13] MEDS: Benzonatate 100 MG CAP PO ×3 (10:22→21:23)
[2021-10-13] MEDS: DULoxetine 30 MG CAP 60 MG PO (10:22)
[2021-10-13] MEDS: amLODIPine 10 MG TAB PO (10:22)
[2021-10-13] MEDS: Ascorbic Acid 500 MG TAB PO ×2 (10:22→21:24)
[2021-10-13] MEDS: diazePAM 2 MG TAB PO ×3 (10:22→21:23)
[2021-10-13] MEDS: Docusate Sodium 100 MG CAP PO ×3 (10:22→21:22)
[2021-10-13] MEDS: Cholecalciferol (Vitamin D3) 1,000 UNIT TAB 1000 UNITS PO (10:22)
[2021-10-13] MEDS: guaiFENesin 600 MG TABCR PO ×2 (10:23→21:24)
[2021-10-13] MEDS: Lactobacillus Acidophilus CAP 1 CAP PO ×3 (10:23→21:22)
[2021-10-13] MEDS: Multivitamin TAB 1 TAB PO (10:24)
[2021-10-13] MEDS: Protein Nutritional Supplement 16 GM 1 OUNCE PACKET PO ×3 (10:24→21:25)
[2021-10-13] MEDS: Pantoprazole 40 MG TABCR PO (10:24)
[2021-10-13] MEDS: Magnesium Chloride 64 MG TABCR 128 MG PO ×2 (10:24→21:23)
[2021-10-13] MEDS: Polyethylene Glycol 3350 17 GM PACKET PO (10:24)
[2021-10-13] MEDS: Enoxaparin 40 MG/0.4 ML SYR SC (14:02)
[2021-10-13 21:21] VITALS: BP 113/70; PULSE 78; RESP 18; TEMP 37.2; O2SAT 95
[2021-10-13] MEDS: Mirtazapine 15 MG TAB 30 MG PO (21:22)
[2021-10-13] MEDS: LORazepam 1 MG TAB PO (21:24)
[2021-10-13] MEDS: Senna TAB 2 TAB PO (21:29)
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
[2021-10-14 10:13] VITALS: BP 123/78; PULSE 68; RESP 18; TEMP 36.7; O2SAT 97
[2021-10-14] MEDS: Ascorbic Acid 500 MG TAB PO ×2 (11:31→20:28)
[2021-10-14] MEDS: amLODIPine 10 MG TAB PO (11:31)
[2021-10-14] MEDS: Dronabinol 2.5 MG CAP 5 MG PO ×2 (11:32→20:27)
[2021-10-14] MEDS: Benzonatate 100 MG CAP PO ×3 (11:32→20:28)
[2021-10-14] MEDS: diazePAM 2 MG TAB PO ×3 (11:32→20:28)
[2021-10-14] MEDS: DULoxetine 30 MG CAP 60 MG PO (11:32)
[2021-10-14] MEDS: Docusate Sodium 100 MG CAP PO ×3 (11:32→20:27)
[2021-10-14] MEDS: Cholecalciferol (Vitamin D3) 1,000 UNIT TAB 1000 UNITS PO (11:32)
[2021-10-14] MEDS: Lactobacillus Acidophilus CAP 1 CAP PO ×3 (11:33→20:28)
[2021-10-14] MEDS: guaiFENesin 600 MG TABCR PO ×2 (11:33→20:28)
[2021-10-14] MEDS: Multivitamin TAB 1 TAB PO (11:33)
[2021-10-14] MEDS: Magnesium Chloride 64 MG TABCR 128 MG PO ×2 (11:33→20:28)
[2021-10-14] MEDS: Pantoprazole 40 MG TABCR PO (11:34)
[2021-10-14] MEDS: Senna TAB 2 TAB PO ×2 (11:34→20:27)
[2021-10-14] MEDS: Polyethylene Glycol 3350 17 GM PACKET PO (11:34)
[2021-10-14] MEDS: Protein Nutritional Supplement 16 GM 1 OUNCE PACKET PO ×3 (11:34→20:28)
[2021-10-14] MEDS: Enoxaparin 40 MG/0.4 ML SYR SC (14:22)
[2021-10-14] MEDS: Mirtazapine 15 MG TAB 30 MG PO (20:28)
[2021-10-14] MEDS: LORazepam 1 MG TAB PO (20:28)
[2021-10-15] MEDS: amLODIPine 10 MG TAB PO (11:01)
[2021-10-15] MEDS: Ascorbic Acid 500 MG TAB PO ×2 (11:01→20:27)
[2021-10-15] MEDS: Benzonatate 100 MG CAP PO ×3 (11:02→20:27)
[2021-10-15] MEDS: Cholecalciferol (Vitamin D3) 1,000 UNIT TAB 1000 UNITS PO (11:02)
[2021-10-15] MEDS: diazePAM 2 MG TAB PO ×3 (11:02→20:27)
[2021-10-15] MEDS: DULoxetine 30 MG CAP 60 MG PO (11:02)
[2021-10-15] MEDS: Dronabinol 2.5 MG CAP 5 MG PO ×2 (11:02→20:26)
[2021-10-15] MEDS: Docusate Sodium 100 MG CAP PO ×3 (11:02→20:27)
[2021-10-15] MEDS: guaiFENesin 600 MG TABCR PO ×2 (11:03→20:27)
[2021-10-15] MEDS: Lactobacillus Acidophilus CAP 1 CAP PO ×3 (11:03→20:27)
[2021-10-15] MEDS: Multivitamin TAB 1 TAB PO (11:04)
[2021-10-15] MEDS: Magnesium Chloride 64 MG TABCR 128 MG PO ×2 (11:04→20:27)
[2021-10-15] MEDS: Polyethylene Glycol 3350 17 GM PACKET PO (11:04)
[2021-10-15] MEDS: Pantoprazole 40 MG TABCR PO (11:04)
[2021-10-15] MEDS: Senna TAB 2 TAB PO ×2 (11:05→20:26)
[2021-10-15] MEDS: Protein Nutritional Supplement 16 GM 1 OUNCE PACKET PO ×3 (11:05→20:27)
[2021-10-15] MEDS: Enoxaparin 40 MG/0.4 ML SYR SC (13:51)
[2021-10-15 18:03] VITALS: BP 135/80; PULSE 67; RESP 18; TEMP 36.9; O2SAT 95
[2021-10-15] MEDS: Mirtazapine 15 MG TAB 30 MG PO (20:26)
[2021-10-15] MEDS: LORazepam 1 MG TAB PO (20:27)
[2021-10-16 08:00] VITALS: BP 129/85; PULSE 64; RESP 16; TEMP 35.9; O2SAT 97
[2021-10-16] MEDS: Dronabinol 2.5 MG CAP 5 MG PO ×2 (08:31→21:14)
[2021-10-16] MEDS: Magnesium Chloride 64 MG TABCR 128 MG PO ×2 (08:31→21:13)
[2021-10-16] MEDS: Senna TAB 2 TAB PO ×2 (08:32→21:14)
[2021-10-16] MEDS: guaiFENesin 600 MG TABCR PO ×2 (08:32→21:13)
[2021-10-16] MEDS: amLODIPine 10 MG TAB PO (08:32)
[2021-10-16] MEDS: Lactobacillus Acidophilus CAP 1 CAP PO ×3 (08:32→21:14)
[2021-10-16] MEDS: Docusate Sodium 100 MG CAP PO ×3 (08:32→21:14)
[2021-10-16] MEDS: diazePAM 2 MG TAB PO ×3 (08:32→21:14)
[2021-10-16] MEDS: Cholecalciferol (Vitamin D3) 1,000 UNIT TAB 1000 UNITS PO (08:32)
[2021-10-16] MEDS: Multivitamin TAB 1 TAB PO (08:32)
[2021-10-16] MEDS: Benzonatate 100 MG CAP PO ×3 (08:32→21:14)
[2021-10-16] MEDS: DULoxetine 30 MG CAP 60 MG PO (08:32)
[2021-10-16] MEDS: Protein Nutritional Supplement 16 GM 1 OUNCE PACKET PO ×3 (08:33→21:13)
[2021-10-16] MEDS: Ascorbic Acid 500 MG TAB PO ×2 (08:33→21:13)
[2021-10-16] MEDS: Pantoprazole 40 MG TABCR PO (08:33)
[2021-10-16] MEDS: Polyethylene Glycol 3350 17 GM PACKET PO (08:33)
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
[2021-10-16] MEDS: Enoxaparin 40 MG/0.4 ML SYR SC (12:52)
[2021-10-16] MEDS: LORazepam 1 MG TAB PO (21:13)
[2021-10-16] MEDS: Mirtazapine 15 MG TAB 30 MG PO (21:14)
[2021-10-17] MEDS: Ascorbic Acid 500 MG TAB PO ×2 (07:39→19:39)
[2021-10-17] MEDS: Protein Nutritional Supplement 16 GM 1 OUNCE PACKET PO ×3 (07:39→19:39)
[2021-10-17] MEDS: Polyethylene Glycol 3350 17 GM PACKET PO (07:39)
[2021-10-17] MEDS: amLODIPine 10 MG TAB PO (07:39)
[2021-10-17] MEDS: Senna TAB 2 TAB PO ×2 (07:40→19:39)
[2021-10-17] MEDS: Lactobacillus Acidophilus CAP 1 CAP PO ×3 (07:40→19:38)
[2021-10-17] MEDS: Cholecalciferol (Vitamin D3) 1,000 UNIT TAB 1000 UNITS PO (07:40)
[2021-10-17] MEDS: Magnesium Chloride 64 MG TABCR 128 MG PO ×2 (07:40→19:38)
[2021-10-17] MEDS: Pantoprazole 40 MG TABCR PO (07:40)
[2021-10-17] MEDS: Docusate Sodium 100 MG CAP PO ×3 (07:40→19:37)
[2021-10-17] MEDS: Dronabinol 2.5 MG CAP 5 MG PO ×2 (07:40→19:38)
[2021-10-17] MEDS: DULoxetine 30 MG CAP 60 MG PO (07:40)
[2021-10-17] MEDS: Multivitamin TAB 1 TAB PO (07:40)
[2021-10-17] MEDS: Benzonatate 100 MG CAP PO ×3 (07:40→19:39)
[2021-10-17] MEDS: diazePAM 2 MG TAB PO ×3 (07:41→19:38)
[2021-10-17] MEDS: guaiFENesin 600 MG TABCR PO ×2 (07:41→19:38)
[2021-10-17] MEDS: Enoxaparin 40 MG/0.4 ML SYR SC (14:21)
[2021-10-17 15:35] VITALS: BP 124/81; PULSE 73; RESP 16; TEMP 36.7; O2SAT 96
[2021-10-17] MEDS: LORazepam 1 MG TAB PO (19:39)
[2021-10-17] MEDS: Mirtazapine 15 MG TAB 30 MG PO (19:39)
[2021-10-18] MEDS: Polyethylene Glycol 3350 17 GM PACKET PO (10:08)
[2021-10-18] MEDS: Protein Nutritional Supplement 16 GM 1 OUNCE PACKET PO ×3 (10:08→19:36)
[2021-10-18] MEDS: Multivitamin TAB 1 TAB PO (10:10)
[2021-10-18] MEDS: Pantoprazole 40 MG TABCR PO (10:10)
[2021-10-18] MEDS: Benzonatate 100 MG CAP PO ×3 (10:10→19:36)
[2021-10-18] MEDS: diazePAM 2 MG TAB PO ×3 (10:10→19:36)
[2021-10-18] MEDS: DULoxetine 30 MG CAP 60 MG PO (10:10)
[2021-10-18] MEDS: Dronabinol 2.5 MG CAP 5 MG PO ×2 (10:10→17:06)
[2021-10-18] MEDS: amLODIPine 10 MG TAB PO (10:10)
[2021-10-18] MEDS: Ascorbic Acid 500 MG TAB PO ×2 (10:11→19:34)
[2021-10-18] MEDS: guaiFENesin 600 MG TABCR PO ×2 (10:11→19:35)
[2021-10-18] MEDS: Cholecalciferol (Vitamin D3) 1,000 UNIT TAB 1000 UNITS PO (10:11)
[2021-10-18] MEDS: Senna TAB 2 TAB PO ×2 (10:11→19:35)
[2021-10-18] MEDS: Docusate Sodium 100 MG CAP PO ×3 (10:12→19:35)
[2021-10-18] MEDS: Magnesium Chloride 64 MG TABCR 128 MG PO ×2 (10:12→19:35)
[2021-10-18] MEDS: Lactobacillus Acidophilus CAP 1 CAP PO ×3 (10:12→19:35)
--- NOTE | 2021-10-18 10:43 | W.NUTRFU ---
Date of service: 10/18/21 Time of Service: 10:43 Nutrition Note NOTE: Weight has been entirely stable over the past few weeks. PO intake has been excellent. Will continue to monitor nutritional status. Time Spent in Nutritional Counseling and Treatment: 0
[2021-10-18] MEDS: Enoxaparin 40 MG/0.4 ML SYR SC (13:52)
[2021-10-18 14:31] VITALS: BP 116/78; PULSE 65; RESP 16; TEMP 35.4; O2SAT 98
[2021-10-18] MEDS: Mirtazapine 15 MG TAB 30 MG PO (19:34)
[2021-10-18] MEDS: LORazepam 1 MG TAB PO (19:36)
[2021-10-19] MEDS: Benzonatate 100 MG CAP PO ×3 (10:54→19:57)
[2021-10-19] MEDS: Ascorbic Acid 500 MG TAB PO ×2 (10:54→19:55)
[2021-10-19] MEDS: Pantoprazole 40 MG TABCR PO (10:55)
[2021-10-19] MEDS: guaiFENesin 600 MG TABCR PO ×2 (10:55→19:56)
[2021-10-19] MEDS: Multivitamin TAB 1 TAB PO (10:55)
[2021-10-19] MEDS: diazePAM 2 MG TAB PO ×3 (10:55→19:56)
[2021-10-19] MEDS: Lactobacillus Acidophilus CAP 1 CAP PO ×3 (10:55→19:56)
[2021-10-19] MEDS: amLODIPine 10 MG TAB PO (10:55)
[2021-10-19] MEDS: Senna TAB 2 TAB PO ×2 (10:55→19:56)
[2021-10-19] MEDS: Cholecalciferol (Vitamin D3) 1,000 UNIT TAB 1000 UNITS PO (10:56)
[2021-10-19] MEDS: DULoxetine 30 MG CAP 60 MG PO (10:56)
[2021-10-19] MEDS: Docusate Sodium 100 MG CAP PO ×3 (10:56→19:56)
[2021-10-19] MEDS: Protein Nutritional Supplement 16 GM 1 OUNCE PACKET PO ×3 (10:56→19:57)
[2021-10-19] MEDS: Magnesium Chloride 64 MG TABCR 128 MG PO ×2 (10:56→19:56)
[2021-10-19] MEDS: Polyethylene Glycol 3350 17 GM PACKET PO (10:57)
[2021-10-19 11:03] VITALS: BP 124/82; PULSE 64; RESP 18; TEMP 36.6; O2SAT 97
[2021-10-19] MEDS: Enoxaparin 40 MG/0.4 ML SYR SC (15:46)
--- NOTE | 2021-10-19 16:13 | W.PM.PROGNOT ---
Date of Service Date of service: 10/19/21 Time of Service: 16:13 Assessment and Plan Assessment and plan (1) Discharge planning issues: Status: Acute Assessment and plan: Patient has received his permanent [place] Medicaid coverage and limiting a financial barriers for permanent residential facility placement. Patient remains on swing bed level 1 although is not requiring any acute medical services at the present time. I will discuss with case management about whether would be appropriate to make him a swing bed level 2 given that he is not participating any physical therapy or occupational therapy and not requiring any acute skilled medical services other than his routine colostomy and urostomy care as well as his chronic osteomyelitis and decubitus skin ulcer care. These may be enough to maintain a swing bed level 1 status. Care management is working on multiple referrals which been placed to various area nursing homes for temporary placement or more permanent living arrangements are being worked on. See case management's note from October 16, 2021. (2) Major depressive disorder: Status: Chronic Assessment and plan: Continue duloxetine 60 mg daily, mirtazapine 30 mg every afternoon. Qualifiers: Major depression recurrence: single episode Active/Remission status: currently active Major depression episode severity: moderate Qualified Code(s): F32.1 - Major depressive disorder, single episode, moderate (3) Chronic recurrent multifocal osteomyelitis: Status: Chronic Assessment and plan: Patient has chronic decubitus skin ulcers over his ischium which is led to bilateral osteomyelitis of his ischium. Currently is not on any antibiotic treatment. Patient's had complications with antibiotic treatment including fungemia as well as C. difficile colitis. For this reason he is not being maintained on any long-term antibiotic treatment. (4) Decubitus skin ulcer: Status: Acute Assessment and plan: Local wound care for dressing changes by nursing staff. Without a skin flap there is no hope of the decubitus ulcers of healing up. And in light of the chronic osteomyelitis is unlikely the skin flap would take. Qualifiers: Pressure injury location: buttock Pressure injury stage: unstageable Laterality: unspecified laterality Qualified Code(s): L89.300 - Pressure ulcer of unspecified buttock, unstageable (5) Insomnia: Status: Acute Assessment and plan: Patient states he is sleeping at night. He is now on Ativan 1 mg at night along with the Remeron 30 mg. Qualifiers: Insomnia type: psychophysiologic Qualified Code(s): F51.04 - Psychophysiologic insomnia (6) Constipation due to neurogenic bowel: Status: Acute Assessment and plan: Patient remains on a bowel regimen with Dulcolax 10 mg suppository daily as needed lack of bowel movement along with scheduled dose of docusate 100 mg 3 times daily and a glycerin suppository daily as needed and 2 senna tablets at night as well as Fleet Enema every 3 days as needed for lack of bowel movement. This seems to be keeping him regular. (7) S/P colostomy: Status: Chronic Assessment and plan: Routine colostomy care as per nursing staff (8) Neurogenic bladder: Status: Chronic Assessment and plan: Chronic indwelling suprapubic Beck catheter. Catheter to be changed monthly and as needed evidence of UTI. (9) Quadriplegia: Status: Chronic (10) DVT prophylaxis: Status: Acute Assessment and plan: Patient remains on enoxaparin 40 mg subcutaneously daily Subjective Subjective Interval history since last seen: Patient has no acute complaints. He denies any dyspnea or cough. States he is eating well. Declines to take the Marinol and does not feel that he needs it therefore its been discontinued. He states he has an interview for an apartment on October 21. From my review of case management's notes is still unclear what his discharge disposition will be. Clearly because of his quadriplegia he cannot care for himself on his own living in an apartment by himself. Favio has unrealistic goals. Care management has been looking at temporary housing in a residential facility until more permanent housing situation can be obtained for him. Exam Narrative Exam Narrative: Middle-aged white male who has a depressed affect but does remain goal oriented. He does make eye contact with me and answers my questions directly. He denies any acute concerns and has no questions for me. Lungs are clear to auscultation Heart is regular rate and rhythm Abdomen soft nondistended Beck's drain clear yellow urine. Objective Last Vital Signs Temp 36.6 C 10/19/21 11:03 Pulse 64 10/19/21 11:03 Resp 18 10/19/21 11:03 BP 124/82 10/19/21 11:03 Pulse Ox 97 10/19/21 11:03
[2021-10-19 19:33] VITALS: BP 114/75; PULSE 88; RESP 20; TEMP 36.4; O2SAT 92
[2021-10-19] MEDS: LORazepam 1 MG TAB PO (19:55)
[2021-10-19] MEDS: Mirtazapine 15 MG TAB 30 MG PO (19:56)
[2021-10-20] MEDS: Polyethylene Glycol 3350 17 GM PACKET PO (08:56)
[2021-10-20] MEDS: diazePAM 2 MG TAB PO ×3 (08:56→20:46)
[2021-10-20] MEDS: Cholecalciferol (Vitamin D3) 1,000 UNIT TAB 1000 UNITS PO (08:56)
[2021-10-20] MEDS: Protein Nutritional Supplement 16 GM 1 OUNCE PACKET PO ×3 (08:56→20:46)
[2021-10-20] MEDS: Senna TAB 2 TAB PO ×2 (08:56→20:48)
[2021-10-20] MEDS: Docusate Sodium 100 MG CAP PO ×3 (08:56→20:47)
[2021-10-20] MEDS: Multivitamin TAB 1 TAB PO (08:56)
[2021-10-20] MEDS: guaiFENesin 600 MG TABCR PO ×2 (08:56→20:47)
[2021-10-20] MEDS: Magnesium Chloride 64 MG TABCR 128 MG PO ×2 (08:57→20:47)
[2021-10-20] MEDS: amLODIPine 10 MG TAB PO (08:57)
[2021-10-20] MEDS: Ascorbic Acid 500 MG TAB PO ×2 (08:57→20:46)
[2021-10-20] MEDS: Lactobacillus Acidophilus CAP 1 CAP PO ×3 (08:57→20:46)
[2021-10-20] MEDS: Pantoprazole 40 MG TABCR PO (08:57)
[2021-10-20] MEDS: DULoxetine 30 MG CAP 60 MG PO (08:57)
[2021-10-20] MEDS: Benzonatate 100 MG CAP PO ×3 (08:57→20:47)
[2021-10-20 12:13] VITALS: BP 130/86; PULSE 73; RESP 18; TEMP 36.7; O2SAT 97
[2021-10-20] MEDS: Enoxaparin 40 MG/0.4 ML SYR SC (14:18)
[2021-10-20] MEDS: Mirtazapine 15 MG TAB 30 MG PO (20:47)
[2021-10-20] MEDS: LORazepam 1 MG TAB PO (20:48)
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
[2021-10-21] MEDS: DULoxetine 30 MG CAP 60 MG PO (09:00)
[2021-10-21] MEDS: Polyethylene Glycol 3350 17 GM PACKET PO (09:00)
[2021-10-21] MEDS: Benzonatate 100 MG CAP PO ×3 (09:00→20:15)
[2021-10-21] MEDS: Magnesium Chloride 64 MG TABCR 128 MG PO ×2 (09:00→20:15)
[2021-10-21] MEDS: Protein Nutritional Supplement 16 GM 1 OUNCE PACKET PO ×3 (09:00→20:16)
[2021-10-21] MEDS: Cholecalciferol (Vitamin D3) 1,000 UNIT TAB 1000 UNITS PO (09:00)
[2021-10-21] MEDS: diazePAM 2 MG TAB PO ×3 (09:01→20:15)
[2021-10-21] MEDS: Lactobacillus Acidophilus CAP 1 CAP PO ×3 (09:01→20:14)
[2021-10-21] MEDS: guaiFENesin 600 MG TABCR PO ×2 (09:01→20:15)
[2021-10-21] MEDS: Senna TAB 2 TAB PO ×2 (09:01→20:15)
[2021-10-21] MEDS: amLODIPine 10 MG TAB PO (09:01)
[2021-10-21] MEDS: Multivitamin TAB 1 TAB PO (09:01)
[2021-10-21] MEDS: Docusate Sodium 100 MG CAP PO ×3 (09:01→20:14)
[2021-10-21] MEDS: Ascorbic Acid 500 MG TAB PO ×2 (09:01→20:15)
[2021-10-21] MEDS: Pantoprazole 40 MG TABCR PO (09:01)
[2021-10-21 09:05] VITALS: BP 120/74; PULSE 61; RESP 18; TEMP 36.5; O2SAT 97
[2021-10-21] MEDS: Enoxaparin 40 MG/0.4 ML SYR SC (13:42)
[2021-10-21] MEDS: Mirtazapine 15 MG TAB 30 MG PO (20:15)
[2021-10-21] MEDS: LORazepam 1 MG TAB PO (20:15)
[2021-10-22 06:41] VITALS: BP 127/80; PULSE 53; RESP 16; TEMP 36.5; O2SAT 95
[2021-10-22] MEDS: Polyethylene Glycol 3350 17 GM PACKET PO (08:20)
[2021-10-22] MEDS: Multivitamin TAB 1 TAB PO (08:20)
[2021-10-22] MEDS: Protein Nutritional Supplement 16 GM 1 OUNCE PACKET PO ×3 (08:20→20:38)
[2021-10-22] MEDS: Benzonatate 100 MG CAP PO ×3 (08:20→20:38)
[2021-10-22] MEDS: amLODIPine 10 MG TAB PO (08:21)
[2021-10-22] MEDS: Lactobacillus Acidophilus CAP 1 CAP PO ×3 (08:21→20:39)
[2021-10-22] MEDS: Senna TAB 2 TAB PO ×2 (08:21→20:39)
[2021-10-22] MEDS: Magnesium Chloride 64 MG TABCR 128 MG PO ×2 (08:21→20:39)
[2021-10-22] MEDS: Pantoprazole 40 MG TABCR PO (08:21)
[2021-10-22] MEDS: diazePAM 2 MG TAB PO ×3 (08:21→20:39)
[2021-10-22] MEDS: Ascorbic Acid 500 MG TAB PO ×2 (08:21→20:39)
[2021-10-22] MEDS: Cholecalciferol (Vitamin D3) 1,000 UNIT TAB 1000 UNITS PO (08:21)
[2021-10-22] MEDS: DULoxetine 30 MG CAP 60 MG PO (08:21)
[2021-10-22] MEDS: guaiFENesin 600 MG TABCR PO ×2 (08:21→20:39)
[2021-10-22] MEDS: Docusate Sodium 100 MG CAP PO ×3 (08:21→20:39)
[2021-10-22] MEDS: Enoxaparin 40 MG/0.4 ML SYR SC (13:53)
[2021-10-22] MEDS: LORazepam 1 MG TAB PO (20:39)
[2021-10-22] MEDS: Mirtazapine 15 MG TAB 30 MG PO (20:39)
[2021-10-23 10:15] VITALS: BP 125/82; PULSE 70; RESP 18; TEMP 36.8; O2SAT 97
[2021-10-23] MEDS: Polyethylene Glycol 3350 17 GM PACKET PO (10:30)
[2021-10-23] MEDS: Protein Nutritional Supplement 16 GM 1 OUNCE PACKET PO ×3 (10:31→19:55)
[2021-10-23] MEDS: Cholecalciferol (Vitamin D3) 1,000 UNIT TAB 1000 UNITS PO (10:32)
[2021-10-23] MEDS: diazePAM 2 MG TAB PO ×3 (10:32→19:54)
[2021-10-23] MEDS: Magnesium Chloride 64 MG TABCR 128 MG PO ×2 (10:32→19:54)
[2021-10-23] MEDS: amLODIPine 10 MG TAB PO (10:32)
[2021-10-23] MEDS: guaiFENesin 600 MG TABCR PO ×2 (10:32→19:55)
[2021-10-23] MEDS: Senna TAB 2 TAB PO ×2 (10:32→19:54)
[2021-10-23] MEDS: DULoxetine 30 MG CAP 60 MG PO (10:33)
[2021-10-23] MEDS: Pantoprazole 40 MG TABCR PO (10:33)
[2021-10-23] MEDS: Benzonatate 100 MG CAP PO ×3 (10:33→19:54)
[2021-10-23] MEDS: Ascorbic Acid 500 MG TAB PO ×2 (10:33→19:54)
[2021-10-23] MEDS: Multivitamin TAB 1 TAB PO (10:34)
[2021-10-23] MEDS: Docusate Sodium 100 MG CAP PO ×3 (10:34→19:55)
[2021-10-23] MEDS: Lactobacillus Acidophilus CAP 1 CAP PO ×3 (10:34→19:54)
[2021-10-23] MEDS: Enoxaparin 40 MG/0.4 ML SYR SC (14:10)
[2021-10-23] MEDS: Mirtazapine 15 MG TAB 30 MG PO (19:54)
[2021-10-23] MEDS: LORazepam 1 MG TAB PO (19:55)
[2021-10-24] MEDS: Protein Nutritional Supplement 16 GM 1 OUNCE PACKET PO ×3 (08:08→20:25)
[2021-10-24] MEDS: Senna TAB 2 TAB PO ×2 (08:09→20:26)
[2021-10-24] MEDS: guaiFENesin 600 MG TABCR PO ×2 (08:09→20:26)
[2021-10-24] MEDS: Cholecalciferol (Vitamin D3) 1,000 UNIT TAB 1000 UNITS PO (08:09)
[2021-10-24] MEDS: amLODIPine 10 MG TAB PO (08:09)
[2021-10-24] MEDS: Multivitamin TAB 1 TAB PO (08:09)
[2021-10-24] MEDS: Polyethylene Glycol 3350 17 GM PACKET PO (08:09)
[2021-10-24] MEDS: Ascorbic Acid 500 MG TAB PO ×2 (08:09→20:27)
[2021-10-24] MEDS: Lactobacillus Acidophilus CAP 1 CAP PO ×3 (08:09→20:26)
[2021-10-24] MEDS: Pantoprazole 40 MG TABCR PO (08:09)
[2021-10-24] MEDS: Docusate Sodium 100 MG CAP PO ×3 (08:09→20:27)
[2021-10-24] MEDS: diazePAM 2 MG TAB PO ×3 (08:09→20:27)
[2021-10-24] MEDS: Benzonatate 100 MG CAP PO ×3 (08:09→20:26)
[2021-10-24] MEDS: DULoxetine 30 MG CAP 60 MG PO (08:09)
[2021-10-24] MEDS: Magnesium Chloride 64 MG TABCR 128 MG PO ×2 (08:09→20:27)
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
[2021-10-24] MEDS: Enoxaparin 40 MG/0.4 ML SYR SC (13:50)
[2021-10-24 18:16] VITALS: BP 121/85; PULSE 79; RESP 18; TEMP 36.9; O2SAT 98
[2021-10-24] MEDS: LORazepam 1 MG TAB PO (20:26)
[2021-10-24] MEDS: Mirtazapine 15 MG TAB 30 MG PO (20:27)
[2021-10-25 07:35] VITALS: BP 133/78; PULSE 63; RESP 16; TEMP 36.3; O2SAT 95
[2021-10-25] MEDS: diazePAM 2 MG TAB PO ×3 (07:58→19:57)
[2021-10-25] MEDS: Magnesium Chloride 64 MG TABCR 128 MG PO ×2 (07:58→19:59)
[2021-10-25] MEDS: Protein Nutritional Supplement 16 GM 1 OUNCE PACKET PO ×3 (07:58→19:56)
[2021-10-25] MEDS: Multivitamin TAB 1 TAB PO (07:58)
[2021-10-25] MEDS: Docusate Sodium 100 MG CAP PO ×3 (07:58→19:58)
[2021-10-25] MEDS: Polyethylene Glycol 3350 17 GM PACKET PO (07:58)
[2021-10-25] MEDS: amLODIPine 10 MG TAB PO (07:59)
[2021-10-25] MEDS: Senna TAB 2 TAB PO ×2 (07:59→19:58)
[2021-10-25] MEDS: Benzonatate 100 MG CAP PO ×3 (07:59→19:57)
[2021-10-25] MEDS: Lactobacillus Acidophilus CAP 1 CAP PO ×3 (07:59→19:58)
[2021-10-25] MEDS: Pantoprazole 40 MG TABCR PO (07:59)
[2021-10-25] MEDS: guaiFENesin 600 MG TABCR PO ×2 (07:59→19:59)
[2021-10-25] MEDS: DULoxetine 30 MG CAP 60 MG PO (07:59)
[2021-10-25] MEDS: Ascorbic Acid 500 MG TAB PO ×2 (07:59→19:57)
[2021-10-25] MEDS: Cholecalciferol (Vitamin D3) 1,000 UNIT TAB 1000 UNITS PO (07:59)
[2021-10-25] MEDS: Enoxaparin 40 MG/0.4 ML SYR SC (14:44)
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
[2021-10-25] MEDS: LORazepam 1 MG TAB PO (19:58)
[2021-10-25] MEDS: Mirtazapine 15 MG TAB 30 MG PO (19:59)
[2021-10-26] MEDS: guaiFENesin 600 MG TABCR PO ×2 (10:35→20:44)
[2021-10-26] MEDS: Lactobacillus Acidophilus CAP 1 CAP PO ×3 (10:35→20:44)
[2021-10-26] MEDS: Polyethylene Glycol 3350 17 GM PACKET PO (10:35)
[2021-10-26] MEDS: Benzonatate 100 MG CAP PO ×3 (10:35→20:43)
[2021-10-26] MEDS: Senna TAB 2 TAB PO ×2 (10:35→20:44)
[2021-10-26] MEDS: Protein Nutritional Supplement 16 GM 1 OUNCE PACKET PO ×3 (10:35→20:43)
[2021-10-26] MEDS: Pantoprazole 40 MG TABCR PO (10:35)
[2021-10-26] MEDS: Ascorbic Acid 500 MG TAB PO ×2 (10:35→20:44)
[2021-10-26] MEDS: Docusate Sodium 100 MG CAP PO ×3 (10:36→20:44)
[2021-10-26] MEDS: DULoxetine 30 MG CAP 60 MG PO (10:36)
[2021-10-26] MEDS: Multivitamin TAB 1 TAB PO (10:36)
[2021-10-26] MEDS: amLODIPine 10 MG TAB PO (10:36)
[2021-10-26] MEDS: Magnesium Chloride 64 MG TABCR 128 MG PO ×2 (10:36→20:43)
[2021-10-26] MEDS: Cholecalciferol (Vitamin D3) 1,000 UNIT TAB 1000 UNITS PO (10:36)
[2021-10-26] MEDS: diazePAM 2 MG TAB PO ×3 (10:36→20:44)
[2021-10-26 12:03] VITALS: BP 152/89; PULSE 60; RESP 16; TEMP 36.9; O2SAT 97
--- NOTE | 2021-10-26 13:17 | NUR.NOTE ---
Patient has had visitors starting at 1300, Care was not finished and posterior side wounds not assessed, this is at patient's request.Nursing Note:
--- NOTE | 2021-10-26 14:23 | PGE_ITS ---
Date of Service Date of service: 10/26/21 Time of Service: 14:00 Assessment and Plan Assessment and plan (1) Decubitus skin ulcer: Status: Acute Qualifiers: Pressure injury location: buttock Pressure injury stage: unstageable Laterality: unspecified laterality Qualified Code(s): L89.300 - Pressure ulcer of unspecified buttock, unstageable (2) Insomnia: Status: Acute Qualifiers: Insomnia type: psychophysiologic Qualified Code(s): F51.04 - Psychophysiologic insomnia (3) Constipation due to neurogenic bowel: Status: Acute (4) Quadriplegia: Status: Chronic Assessment and plan: Continue wound care under SB1, based on [facility] recommendations. Appears to be doing well on current depression regimen. Continue bowel regimen. Hoping for a site visit for placement sometime next week. Subjective Subjective Interval history since last seen: Favio states he is feeling well. Denies dizziness, chest pain, shortness of breath, nausea, pain of any kind. He is scared to get hopeful about having a place to go visit next week, and we talked about hope being a good thing. He loves the SmarTots that Dr Zhu has brought for him. His brother just visited with him, which made him happy. Exam Narrative Exam Narrative: General: Pleasant middle-aged male who is laying comfortably in bed, appears to be in good spirits HEENT: EOMI, MMM Heart: RRR, no m/r/g Lungs: CTAB anteriorly Abdomen: soft, nontender, nondistended Extremities: Covered in blankets Objective Last Vital Signs Temp 36.9 C 10/26/21 12:03 Pulse 60 10/26/21 12:03 Resp 16 10/26/21 12:03 BP 152/89 H 10/26/21 12:03 Pulse Ox 97 10/26/21 12:03
[2021-10-26] MEDS: Enoxaparin 40 MG/0.4 ML SYR SC (15:05)
[2021-10-26] MEDS: LORazepam 1 MG TAB PO (20:44)
[2021-10-26] MEDS: Mirtazapine 15 MG TAB 30 MG PO (20:44)
--- NOTE | 2021-10-27 | DI.RAD_ITS ---
Exam(s) XR FOOT RT LIMITED EXAM: XR FOOT RT LIMITED CLINICAL HISTORY: erythema R great toe - portable XR, please. TECHNIQUE: 2D digital imaging was performed. COMPARISON: No exams were available for comparison FINDINGS: Two views of the right foot reveal diffuse nonuse osteopenia. No obvious acute fracture or diastasis of the Hanna carmen joint. No obvious radiographic evidence of osteomyelitis although the toes are ove rlapping on the lateral view. IMPRESSION: As above. Recommend dedicated views of the toe of concern. DATA REPOSITORY: RADIATION DOSE DELIVERED:
[2021-10-27] MEDS: Cholecalciferol (Vitamin D3) 1,000 UNIT TAB 1000 UNITS PO (10:54)
[2021-10-27] MEDS: Docusate Sodium 100 MG CAP PO ×3 (10:54→20:22)
[2021-10-27] MEDS: Senna TAB 2 TAB PO ×2 (10:54→20:22)
[2021-10-27] MEDS: Ascorbic Acid 500 MG TAB PO ×2 (10:54→20:22)
[2021-10-27] MEDS: Polyethylene Glycol 3350 17 GM PACKET PO (10:54)
[2021-10-27] MEDS: Lactobacillus Acidophilus CAP 1 CAP PO ×3 (10:54→20:22)
[2021-10-27] MEDS: Protein Nutritional Supplement 16 GM 1 OUNCE PACKET PO ×3 (10:54→20:22)
[2021-10-27] MEDS: amLODIPine 10 MG TAB PO (10:54)
[2021-10-27] MEDS: diazePAM 2 MG TAB PO ×3 (10:54→20:22)
[2021-10-27] MEDS: Benzonatate 100 MG CAP PO ×3 (10:55→20:22)
[2021-10-27] MEDS: guaiFENesin 600 MG TABCR PO ×2 (10:55→20:22)
[2021-10-27] MEDS: Pantoprazole 40 MG TABCR PO (10:55)
[2021-10-27] MEDS: Multivitamin TAB 1 TAB PO (10:55)
[2021-10-27] MEDS: DULoxetine 30 MG CAP 60 MG PO (10:55)
[2021-10-27] MEDS: Magnesium Chloride 64 MG TABCR 128 MG PO ×2 (10:55→20:22)
[2021-10-27] MEDS: Enoxaparin 40 MG/0.4 ML SYR SC (14:56)
[2021-10-27 15:15] VITALS: BP 107/76; PULSE 79; RESP 16; TEMP 36.2; O2SAT 95
[2021-10-27 16:06] LABS: Abs Immature Grans 0.01 10^3/uL (0.0-0.06); Absolute Basophil Count 0.01 10^3/uL (0.0-0.2); Absolute Eosinophil Count 0.32 10^3/uL (0.0-0.7); Absolute Lymphocyte Count 1.57 10^3/uL (1.2-3.4); Absolute Monocyte Count 0.45 10^3/uL (0.1-0.8); Absolute Neutrophil Count 4.45 10^3/uL (1.2-6.7); Basophils % 0.1; Eosinophils % 4.7; HGB 12.1 g/dL (13.5-17.5); Immature Grans % 0.1; Lymphocytes % 23.1; MCH 28.6 pg (27.0-33.0); MCHC 31.8 % (32.0-36.0); MCV 89.8 fL (80-95); MPV 10.5 fL (8.0-11.0); Monocytes % 6.6; Neutrophils % 65.4; Nucleated RBC 0 %; Platelet Count 212 10^3/uL (130-400); RBC 4.23 10^6/uL (4.36-5.78); RDW 13.7 % (11.8-14.1); WBC 6.81 10^3/uL (4.4-10.8)
[2021-10-27 16:16] LABS: Anion Gap 8.7 mmol/L (3-11); BUN 26 mg/dL (7-18); CO2 25.3 mmol/L (21.0-32.0); CREATININE 0.9 mg/dL (0.70-1.30); Calcium 8.7 mg/dL (8.5-10.1); Chloride 105 mmol/L (98-107); Glucose 134 mg/dL (74-106); Magnesium 1.8 mg/dL (1.8-2.4); Sodium 139 mmol/L (136-145)
[2021-10-27 16:25] LABS: C-Reactive Protein 2.67 mg/dL (0.0-0.3); Uric Acid 4.2 mg/dL (3.5-7.2)
--- NOTE | 2021-10-27 16:49 | DI.VRAD_ITS ---
PROCEDURE INFORMATION: Exam: XR Right Toe(s) Exam date and time: 10/27/2021 3:39 PM Age: 56 years old Clinical indication: Other: Erythema R great toe; Patient HX: Quadriplegic TECHNIQUE: Imaging protocol: XR Right toes. Views: Minimum 2 views. COMPARISON: US EXTREMITY VENOUS BI 07/03/2021 3:26 PM FINDINGS: Bones/joints: Bone mineralization appears markedly decreased. Visualization of the great toe is limited due to flexion position. No definite bony abnormality is appreciated. Soft tissues: Normal. IMPRESSION: Limited exam. No definite acute abnormality involves the great toe. Bone mineralization decreased. Dictated and Authenticated by: Ami Kaiser MD. Ordering:ELA Newton MD
--- NOTE | 2021-10-27 16:57 | W.PM.PROGNOT ---
Date of Service Date of service: 10/27/21 Time of Service: 16:50 Subjective Subjective Interval history since last seen: Nursing reported that the patient had erythema and inflamed appearance of R great toe. Came to evaluate the patient. He states he has sensation in his toes and he does not have pain in it. R great toe indeed erythematous. No palpable fluid collection. No wound. Bloodwork not c/w gout. No evidence of OM on XR. At this point, I suspect cellulitis and am starting him on keflex. Consider podiatry c/s and MRI R foot. Objective Last Vital Signs Temp 36.2 C L 10/27/21 15:15 Pulse 79 10/27/21 15:15 Resp 16 10/27/21 15:15 BP 107/76 10/27/21 15:15 Pulse Ox 95 10/27/21 15:15 Laboratory Results - last 24 hr 10/27/21 10/27/21 10/27/21 15:58 15:58 15:58 WBC 6.81 RBC 4.23 L Hgb 12.1 L Hct 38.0 L MCV 89.8 MCH 28.6 MCHC 31.8 L RDW 13.7 Plt Count 212 MPV 10.5 Immature Gran % 0.1 Neutrophils % 65.4 Lymphocytes % 23.1 Monocytes % 6.6 Eosinophils % 4.7 Basophils % 0.1 Nucleated RBC % 0 Absolute Neutrophils 4.45 Absolute Lymphocytes 1.57 Absolute Monocytes 0.45 Absolute Eosinophils 0.32 Absolute Basophils 0.01 Sodium 139 Potassium 4.0 Chloride 105 Carbon Dioxide 25.3 Anion Gap 8.7 BUN 26 H Creatinine 0.9 Estimated GFR/1.73 m2 >= 60.00 Glucose 134 H Uric Acid 4.2 Calcium 8.7 Magnesium 1.8 C-Reactive Protein 2.67 H
--- NOTE | 2021-10-27 17:18 | NUR.NOTE ---
Nursing Note: start Keflex tonight, possible Cellulitis, of the toe
[2021-10-27] MEDS: Mirtazapine 15 MG TAB 30 MG PO (20:22)
[2021-10-27] MEDS: Cephalexin 250 MG CAP PO (20:22)
[2021-10-27] MEDS: LORazepam 1 MG TAB PO (20:23)
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
[2021-10-28] MEDS: Lactobacillus Acidophilus CAP 1 CAP PO ×3 (08:50→20:33)
[2021-10-28] MEDS: Protein Nutritional Supplement 16 GM 1 OUNCE PACKET PO ×3 (08:50→20:32)
[2021-10-28] MEDS: Polyethylene Glycol 3350 17 GM PACKET PO (08:50)
[2021-10-28] MEDS: Multivitamin TAB 1 TAB PO (08:50)
[2021-10-28] MEDS: Senna TAB 2 TAB PO ×2 (08:50→20:33)
[2021-10-28] MEDS: Ascorbic Acid 500 MG TAB PO ×2 (08:51→20:33)
[2021-10-28] MEDS: Benzonatate 100 MG CAP PO ×3 (08:51→20:33)
[2021-10-28] MEDS: Cephalexin 250 MG CAP PO ×3 (08:51→20:33)
[2021-10-28] MEDS: guaiFENesin 600 MG TABCR PO ×2 (08:51→20:33)
[2021-10-28] MEDS: Pantoprazole 40 MG TABCR PO (08:51)
[2021-10-28] MEDS: Cholecalciferol (Vitamin D3) 1,000 UNIT TAB 1000 UNITS PO (08:51)
[2021-10-28] MEDS: Magnesium Chloride 64 MG TABCR 128 MG PO ×2 (08:51→20:33)
[2021-10-28] MEDS: diazePAM 2 MG TAB PO ×3 (08:51→20:33)
[2021-10-28] MEDS: amLODIPine 10 MG TAB PO (08:51)
[2021-10-28] MEDS: DULoxetine 30 MG CAP 60 MG PO (08:51)
[2021-10-28] MEDS: Docusate Sodium 100 MG CAP PO ×3 (08:51→20:33)
--- NOTE | 2021-10-28 13:53 | W.NUTRFU ---
Date of service: 10/28/21 Time of Service: 13:53 Nutrition Note NOTE: Weight continues to be stable. PO intake continues to be excellent. Will continue to follow progress. Time Spent in Nutritional Counseling and Treatment: 0
[2021-10-28] MEDS: Enoxaparin 40 MG/0.4 ML SYR SC (14:16)
--- NOTE | 2021-10-28 14:56 | W.PM.PROGNOT ---
Date of Service Date of service: 10/28/21 Time of Service: 14:00 Subjective Subjective Interval history since last seen: Patient seen in brief follow up to assess the right great toe. The erythema has entirely resolved since yesterday. We will continue antibiotics for the next 48 hrs, but plan to d/c them if there is no sign of erythema past that time. Objective Last Vital Signs Temp 36.2 C L 10/27/21 15:15 Pulse 79 10/27/21 15:15 Resp 16 10/27/21 15:15 BP 107/76 10/27/21 15:15 Pulse Ox 95 10/27/21 15:15 Laboratory Results - last 24 hr 10/27/21 10/27/21 10/27/21 15:58 15:58 15:58 WBC 6.81 RBC 4.23 L Hgb 12.1 L Hct 38.0 L MCV 89.8 MCH 28.6 MCHC 31.8 L RDW 13.7 Plt Count 212 MPV 10.5 Immature Gran % 0.1 Neutrophils % 65.4 Lymphocytes % 23.1 Monocytes % 6.6 Eosinophils % 4.7 Basophils % 0.1 Nucleated RBC % 0 Absolute Neutrophils 4.45 Absolute Lymphocytes 1.57 Absolute Monocytes 0.45 Absolute Eosinophils 0.32 Absolute Basophils 0.01 Sodium 139 Potassium 4.0 Chloride 105 Carbon Dioxide 25.3 Anion Gap 8.7 BUN 26 H Creatinine 0.9 Estimated GFR/1.73 m2 >= 60.00 Glucose 134 H Uric Acid 4.2 Calcium 8.7 Magnesium 1.8 C-Reactive Protein 2.67 H
[2021-10-28 15:54] VITALS: BP 137/80; PULSE 77; RESP 16; TEMP 36.5; O2SAT 97
[2021-10-28] MEDS: Mirtazapine 15 MG TAB 30 MG PO (20:33)
[2021-10-28] MEDS: LORazepam 1 MG TAB PO (20:33)
[2021-10-29] MEDS: Polyethylene Glycol 3350 17 GM PACKET PO (08:24)
[2021-10-29] MEDS: Cholecalciferol (Vitamin D3) 1,000 UNIT TAB 1000 UNITS PO (08:24)
[2021-10-29] MEDS: guaiFENesin 600 MG TABCR PO ×2 (08:24→20:17)
[2021-10-29] MEDS: Cephalexin 250 MG CAP PO ×3 (08:24→20:19)
[2021-10-29] MEDS: Protein Nutritional Supplement 16 GM 1 OUNCE PACKET PO ×3 (08:24→20:17)
[2021-10-29] MEDS: Benzonatate 100 MG CAP PO ×3 (08:24→20:19)
[2021-10-29] MEDS: Senna TAB 2 TAB PO ×2 (08:24→20:17)
[2021-10-29] MEDS: Magnesium Chloride 64 MG TABCR 128 MG PO ×2 (08:24→20:18)
[2021-10-29] MEDS: DULoxetine 30 MG CAP 60 MG PO (08:24)
[2021-10-29] MEDS: Ascorbic Acid 500 MG TAB PO ×2 (08:25→20:18)
[2021-10-29] MEDS: amLODIPine 10 MG TAB PO (08:25)
[2021-10-29] MEDS: Lactobacillus Acidophilus CAP 1 CAP PO ×3 (08:25→20:18)
[2021-10-29] MEDS: Pantoprazole 40 MG TABCR PO (08:25)
[2021-10-29] MEDS: Multivitamin TAB 1 TAB PO (08:25)
[2021-10-29] MEDS: Docusate Sodium 100 MG CAP PO ×3 (08:25→20:18)
[2021-10-29] MEDS: diazePAM 2 MG TAB PO ×3 (08:25→20:17)
[2021-10-29] MEDS: Enoxaparin 40 MG/0.4 ML SYR SC (13:59)
[2021-10-29 15:21] VITALS: BP 113/72; PULSE 75; RESP 16; TEMP 36.8; O2SAT 95
[2021-10-29] MEDS: Mirtazapine 15 MG TAB 30 MG PO (20:18)
[2021-10-29] MEDS: LORazepam 1 MG TAB PO (20:19)
[2021-10-30] MEDS: Magnesium Chloride 64 MG TABCR 128 MG PO ×2 (08:50→20:27)
[2021-10-30] MEDS: Protein Nutritional Supplement 16 GM 1 OUNCE PACKET PO ×3 (08:50→20:26)
[2021-10-30] MEDS: Cholecalciferol (Vitamin D3) 1,000 UNIT TAB 1000 UNITS PO (08:50)
[2021-10-30] MEDS: Polyethylene Glycol 3350 17 GM PACKET PO (08:50)
[2021-10-30] MEDS: Benzonatate 100 MG CAP PO ×3 (08:50→20:27)
[2021-10-30] MEDS: Pantoprazole 40 MG TABCR PO (08:51)
[2021-10-30] MEDS: amLODIPine 10 MG TAB PO (08:51)
[2021-10-30] MEDS: Senna TAB 2 TAB PO ×2 (08:51→20:27)
[2021-10-30] MEDS: diazePAM 2 MG TAB PO ×3 (08:51→20:27)
[2021-10-30] MEDS: Lactobacillus Acidophilus CAP 1 CAP PO ×3 (08:51→20:27)
[2021-10-30] MEDS: guaiFENesin 600 MG TABCR PO ×2 (08:51→20:27)
[2021-10-30] MEDS: Cephalexin 250 MG CAP PO ×3 (08:51→20:27)
[2021-10-30] MEDS: Multivitamin TAB 1 TAB PO (08:51)
[2021-10-30] MEDS: DULoxetine 30 MG CAP 60 MG PO (08:51)
[2021-10-30] MEDS: Docusate Sodium 100 MG CAP PO ×3 (08:51→20:27)
[2021-10-30] MEDS: Ascorbic Acid 500 MG TAB PO ×2 (08:52→20:27)
--- NOTE | 2021-10-30 10:58 | NUR.NOTE ---
Nursing Note: This group underwriter entered the room because RICHELLE asked for assistance. MOBILE APPLICATION DEVELOPER noted that left 5th toe was bleeding and draining purulent drainage while doing nail care. The nail had not been trimmed only touched prior to noticing the drainage. The drainage appeared to be coming from the outer edge of the nail where it had ingrown into the skin. The nail was cut and removed from the skin. The skin was cleansed with wound cleanser and left open to air. Bleeding has stopped.
[2021-10-30] MEDS: Enoxaparin 40 MG/0.4 ML SYR SC (13:48)
[2021-10-30 15:20] VITALS: BP 144/87; PULSE 77; RESP 19; TEMP 37.4; O2SAT 97
[2021-10-30] MEDS: Mirtazapine 15 MG TAB 30 MG PO (20:27)
[2021-10-30] MEDS: LORazepam 1 MG TAB PO (20:27)
[2021-10-31] MEDS: Lactobacillus Acidophilus CAP 1 CAP PO ×3 (08:56→20:04)
[2021-10-31] MEDS: Ascorbic Acid 500 MG TAB PO ×2 (08:56→20:03)
[2021-10-31] MEDS: Pantoprazole 40 MG TABCR PO (08:57)
[2021-10-31] MEDS: Multivitamin TAB 1 TAB PO (08:57)
[2021-10-31] MEDS: amLODIPine 10 MG TAB PO (08:57)
[2021-10-31] MEDS: Magnesium Chloride 64 MG TABCR 128 MG PO ×2 (08:58→20:03)
[2021-10-31] MEDS: Cephalexin 250 MG CAP PO ×3 (08:58→20:04)
[2021-10-31] MEDS: Benzonatate 100 MG CAP PO (08:58)
[2021-10-31] MEDS: Cholecalciferol (Vitamin D3) 1,000 UNIT TAB 1000 UNITS PO (08:58)
[2021-10-31] MEDS: DULoxetine 30 MG CAP 60 MG PO (08:58)
[2021-10-31] MEDS: Docusate Sodium 100 MG CAP PO ×3 (08:58→20:05)
[2021-10-31] MEDS: Protein Nutritional Supplement 16 GM 1 OUNCE PACKET PO ×3 (08:59→20:04)
[2021-10-31] MEDS: Senna TAB 2 TAB PO ×2 (08:59→20:02)
[2021-10-31] MEDS: diazePAM 2 MG TAB PO ×3 (08:59→20:02)
[2021-10-31] MEDS: Polyethylene Glycol 3350 17 GM PACKET PO (08:59)
--- NOTE | 2021-10-31 10:31 | CMACTNOTE_ITS ---
- If Service Date Differs Date of service: 10/31/21 Time of Service: 10:31 Care Management Activity Note S/O: Favio was sitting up in bed when ALCIDES met with him. He continues to engage with CM and shared that he had made a follow up phone call to his friend regarding a possible [facility] home. ALCIDES also contacted Carla Naranjo, his [facility] onsite case manager, and left a message re: progress with placement. Yesterday Favio agreed to have a referral sent to [facility], although his first choice remains placem ent in an AFC home in the area. Favio has been getting up in his motorized wheelchair and continues to engage with friends and family on his Ipad. His parents come to visit often and some of his friends and other relatives do as well. A: Favio is a 56 year old man admitted on 09/01/21 with a UTI P: Favio's discharge plan remains unclear at this time. His alf Medicaid has been approved, removing the major barrier to services that has plagued Favio for months. ALCIDES is working with his onsite case manager Carla Naranjo at [facility] on Aging to find appropriate placement for Favio. Another referral was sent to [facility] today as Favio agreed to consider this option. In addition, Carla has pursued AFC homes and has submitted applications for the 3 agencies serving this area. ALCIDES will continue to support Favio and assess for discharge planning concerns.
[2021-10-31 11:25] VITALS: BP 107/77; PULSE 81; RESP 16; TEMP 36.6; O2SAT 97
[2021-10-31] MEDS: Enoxaparin 40 MG/0.4 ML SYR SC (13:44)
[2021-10-31] MEDS: Acetaminophen 325 MG TAB 650 MG PO (13:44)
[2021-10-31] MEDS: LORazepam 1 MG TAB PO (20:02)
[2021-10-31] MEDS: Mirtazapine 15 MG TAB 30 MG PO (20:03)
[2021-10-31] MEDS: guaiFENesin 600 MG TABCR PO (20:03)
[2021-11-01] MEDS: guaiFENesin 600 MG TABCR PO ×2 (08:50→19:46)
[2021-11-01] MEDS: Cephalexin 250 MG CAP PO ×3 (08:50→19:46)
[2021-11-01] MEDS: Docusate Sodium 100 MG CAP PO ×3 (08:50→19:46)
[2021-11-01] MEDS: diazePAM 2 MG TAB PO ×3 (08:50→19:47)
[2021-11-01] MEDS: Polyethylene Glycol 3350 17 GM PACKET PO (08:50)
[2021-11-01] MEDS: Protein Nutritional Supplement 16 GM 1 OUNCE PACKET PO ×3 (08:50→19:47)
[2021-11-01] MEDS: amLODIPine 10 MG TAB PO (08:50)
[2021-11-01] MEDS: Pantoprazole 40 MG TABCR PO (08:51)
[2021-11-01] MEDS: Cholecalciferol (Vitamin D3) 1,000 UNIT TAB 1000 UNITS PO (08:51)
[2021-11-01] MEDS: Senna TAB 2 TAB PO ×2 (08:51→19:45)
[2021-11-01] MEDS: DULoxetine 30 MG CAP 60 MG PO (08:51)
[2021-11-01] MEDS: Ascorbic Acid 500 MG TAB PO ×2 (08:51→19:45)
[2021-11-01] MEDS: Multivitamin TAB 1 TAB PO (08:51)
[2021-11-01] MEDS: Magnesium Chloride 64 MG TABCR 128 MG PO ×2 (08:51→19:47)
[2021-11-01] MEDS: Lactobacillus Acidophilus CAP 1 CAP PO ×3 (08:51→19:45)
[2021-11-01] MEDS: Acetaminophen 325 MG TAB 650 MG PO (10:36)
--- NOTE | 2021-11-01 14:28 | CHAPLAIN ---
Favio was sitting up in bed when I visited this morning. It was one of the few times I have not seen him using this iPad to watch movies for listen to music. His room has been decorated for New Year's Radha by one of the LNAs and Favio seems to really enjoy the decorations and appreciate the MICA PASTER's thoughtfulness. Today Favio talked a bit about his childhood, growing up n [employer] and going to [employer] for high school. He is pursuing the possibility of an [facility] home in [place] where a friend of his works. Favio continues to have regular visits from family members and friends.
[2021-11-01] MEDS: Enoxaparin 40 MG/0.4 ML SYR SC (14:36)
[2021-11-01 15:32] VITALS: BP 120/77; PULSE 78; RESP 18; TEMP 37.3; O2SAT 96
[2021-11-01] MEDS: LORazepam 1 MG TAB PO (19:46)
[2021-11-01] MEDS: Mirtazapine 15 MG TAB 30 MG PO (19:46)
[2021-11-01] MEDS: Lidocaine Patch Removal 2 EACH TP (19:47)
[2021-11-02] MEDS: Docusate Sodium 100 MG CAP PO ×3 (08:40→19:32)
[2021-11-02] MEDS: Protein Nutritional Supplement 16 GM 1 OUNCE PACKET PO ×3 (08:40→19:32)
[2021-11-02] MEDS: Senna TAB 2 TAB PO ×2 (08:40→19:31)
[2021-11-02] MEDS: Polyethylene Glycol 3350 17 GM PACKET PO (08:40)
[2021-11-02] MEDS: amLODIPine 10 MG TAB PO (08:41)
[2021-11-02] MEDS: Lactobacillus Acidophilus CAP 1 CAP PO ×3 (08:41→19:31)
[2021-11-02] MEDS: Pantoprazole 40 MG TABCR PO (08:41)
[2021-11-02] MEDS: Multivitamin TAB 1 TAB PO (08:41)
[2021-11-02] MEDS: Ascorbic Acid 500 MG TAB PO ×2 (08:41→19:31)
[2021-11-02] MEDS: diazePAM 2 MG TAB PO ×3 (08:41→19:32)
[2021-11-02] MEDS: guaiFENesin 600 MG TABCR PO ×2 (08:41→19:32)
[2021-11-02] MEDS: Cholecalciferol (Vitamin D3) 1,000 UNIT TAB 1000 UNITS PO (08:41)
[2021-11-02] MEDS: Magnesium Chloride 64 MG TABCR 128 MG PO ×2 (08:42→19:32)
[2021-11-02] MEDS: Cephalexin 250 MG CAP PO ×3 (08:42→19:32)
[2021-11-02] MEDS: DULoxetine 30 MG CAP 60 MG PO (08:42)
[2021-11-02 10:12] VITALS: BP 143/91; PULSE 70; RESP 19; TEMP 36.5; O2SAT 98
[2021-11-02] MEDS: Enoxaparin 40 MG/0.4 ML SYR SC (14:42)
[2021-11-02] MEDS: Mirtazapine 15 MG TAB 30 MG PO (19:31)
[2021-11-02] MEDS: LORazepam 1 MG TAB PO (19:32)
[2021-11-03 10:15] VITALS: BP 127/86; PULSE 83; RESP 12; TEMP 36; O2SAT 96
[2021-11-03] MEDS: Ascorbic Acid 500 MG TAB PO ×2 (10:17→19:38)
[2021-11-03] MEDS: amLODIPine 10 MG TAB PO (10:17)
[2021-11-03] MEDS: Cephalexin 250 MG CAP PO ×2 (10:17→14:47)
[2021-11-03] MEDS: diazePAM 2 MG TAB PO ×3 (10:18→19:38)
[2021-11-03] MEDS: Cholecalciferol (Vitamin D3) 1,000 UNIT TAB 1000 UNITS PO (10:18)
[2021-11-03] MEDS: Docusate Sodium 100 MG CAP PO ×3 (10:18→19:38)
[2021-11-03] MEDS: DULoxetine 30 MG CAP 60 MG PO (10:18)
[2021-11-03] MEDS: Multivitamin TAB 1 TAB PO (10:19)
[2021-11-03] MEDS: Magnesium Chloride 64 MG TABCR 128 MG PO ×2 (10:19→19:38)
[2021-11-03] MEDS: Lactobacillus Acidophilus CAP 1 CAP PO ×3 (10:19→19:38)
[2021-11-03] MEDS: guaiFENesin 600 MG TABCR PO ×2 (10:19→19:38)
[2021-11-03] MEDS: Protein Nutritional Supplement 16 GM 1 OUNCE PACKET PO ×3 (10:20→19:37)
[2021-11-03] MEDS: Pantoprazole 40 MG TABCR PO (10:20)
[2021-11-03] MEDS: Senna TAB 2 TAB PO ×2 (10:20→19:38)
[2021-11-03] MEDS: Polyethylene Glycol 3350 17 GM PACKET PO (10:21)
[2021-11-03] MEDS: Enoxaparin 40 MG/0.4 ML SYR SC (14:48)
--- NOTE | 2021-11-03 15:27 | W.PM.PROGNOT ---
Date of Service Date of service: 11/03/21 Time of Service: 15:28 Assessment and Plan Assessment and plan (1) Paronychia of great toe: Status: Acute Assessment and plan: I believe that he had prior infection of his left little toe as well as the right great toe; however, all toes appear to be ok. No redness nor any induraton. Keeping his toenails trimmed will help. I will dc his keflex at this point. Subjective Subjective Interval history since last seen: Paronychial infections appear to have cleared up. Right great toes no longer swollen and red left little toe likewise has no purulent drainage just a small dried up spot of blood along the left lateral little toe. Patient has received almost a week of Keflex. I think at this point we can discontinue his Keflex. 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 Exam Narrative Exam Narrative: Right great toe is not swollen there is no erythema and no drainage. Left little toe likewise has no purulent drainage no erythema just a small spot of dried blood along the lateral nail bed. Objective Last Vital Signs Temp 36 C L 11/03/21 10:15 Pulse 83 11/03/21 10:15 Resp 12 11/03/21 10:15 BP 127/86 11/03/21 10:15 Pulse Ox 96 11/03/21 10:15
[2021-11-03] MEDS: LORazepam 1 MG TAB PO (19:38)
[2021-11-03] MEDS: Mirtazapine 15 MG TAB 30 MG PO (19:38)
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
[2021-11-04] MEDS: amLODIPine 10 MG TAB PO (08:22)
[2021-11-04] MEDS: Senna TAB 2 TAB PO ×2 (08:22→21:19)
[2021-11-04] MEDS: DULoxetine 30 MG CAP 60 MG PO (08:22)
[2021-11-04] MEDS: Polyethylene Glycol 3350 17 GM PACKET PO (08:22)
[2021-11-04] MEDS: Protein Nutritional Supplement 16 GM 1 OUNCE PACKET PO ×3 (08:22→21:20)
[2021-11-04] MEDS: Lactobacillus Acidophilus CAP 1 CAP PO ×3 (08:23→21:20)
[2021-11-04] MEDS: Multivitamin TAB 1 TAB PO (08:23)
[2021-11-04] MEDS: Docusate Sodium 100 MG CAP PO ×3 (08:23→21:20)
[2021-11-04] MEDS: Ascorbic Acid 500 MG TAB PO ×2 (08:23→21:20)
[2021-11-04] MEDS: diazePAM 2 MG TAB PO ×3 (08:23→21:19)
[2021-11-04] MEDS: Pantoprazole 40 MG TABCR PO (08:23)
[2021-11-04] MEDS: guaiFENesin 600 MG TABCR PO ×2 (08:23→21:19)
[2021-11-04] MEDS: Magnesium Chloride 64 MG TABCR 128 MG PO ×2 (08:23→21:20)
[2021-11-04] MEDS: Cholecalciferol (Vitamin D3) 1,000 UNIT TAB 1000 UNITS PO (08:23)
[2021-11-04 10:50] VITALS: BP 135/90; PULSE 75; RESP 18; TEMP 36; O2SAT 97
--- NOTE | 2021-11-04 12:19 | W.NUTRFU ---
Date of service: 11/04/21 Time of Service: 12:19 Nutrition Note NOTE: No new nutritional issues. Weight remains stable. PO has been excellent. Will continue to monitor nutritional status. Please weight Mr. Velasquez at least weekly so we can best monitor his nutritional status. Time Spent in Nutritional Counseling and Treatment: 0
[2021-11-04] MEDS: Enoxaparin 40 MG/0.4 ML SYR SC (13:14)
[2021-11-04] MEDS: LORazepam 1 MG TAB PO (21:20)
[2021-11-04] MEDS: Mirtazapine 15 MG TAB 30 MG PO (21:20)
[2021-11-05 09:17] VITALS: BP 136/83; PULSE 69; RESP 16; TEMP 36.4; O2SAT 98
[2021-11-05] MEDS: Ascorbic Acid 500 MG TAB PO ×2 (09:53→19:38)
[2021-11-05] MEDS: Cholecalciferol (Vitamin D3) 1,000 UNIT TAB 1000 UNITS PO (09:54)
[2021-11-05] MEDS: Docusate Sodium 100 MG CAP PO ×3 (09:54→19:37)
[2021-11-05] MEDS: Magnesium Chloride 64 MG TABCR 128 MG PO ×2 (09:54→19:38)
[2021-11-05] MEDS: DULoxetine 30 MG CAP 60 MG PO (09:54)
[2021-11-05] MEDS: guaiFENesin 600 MG TABCR PO ×2 (09:54→19:36)
[2021-11-05] MEDS: Multivitamin TAB 1 TAB PO (09:55)
[2021-11-05] MEDS: Pantoprazole 40 MG TABCR PO (09:55)
[2021-11-05] MEDS: Lactobacillus Acidophilus CAP 1 CAP PO ×3 (09:55→19:37)
[2021-11-05] MEDS: diazePAM 2 MG TAB PO ×3 (09:56→19:38)
[2021-11-05] MEDS: Senna TAB 2 TAB PO ×2 (09:56→19:36)
[2021-11-05] MEDS: amLODIPine 10 MG TAB PO (09:56)
[2021-11-05] MEDS: Polyethylene Glycol 3350 17 GM PACKET PO (09:57)
[2021-11-05] MEDS: Protein Nutritional Supplement 16 GM 1 OUNCE PACKET PO ×3 (09:57→19:38)
[2021-11-05] MEDS: Enoxaparin 40 MG/0.4 ML SYR SC (13:30)
[2021-11-05] MEDS: LORazepam 1 MG TAB PO (19:37)
[2021-11-05] MEDS: Mirtazapine 15 MG TAB 30 MG PO (19:38)
[2021-11-06 07:47] VITALS: BP 110/72; PULSE 74; RESP 16; TEMP 36; O2SAT 96
[2021-11-06] MEDS: DULoxetine 30 MG CAP 60 MG PO (09:18)
[2021-11-06] MEDS: Cholecalciferol (Vitamin D3) 1,000 UNIT TAB 1000 UNITS PO (09:18)
[2021-11-06] MEDS: Senna TAB 2 TAB PO ×2 (09:19→19:48)
[2021-11-06] MEDS: Lactobacillus Acidophilus CAP 1 CAP PO ×3 (09:19→19:48)
[2021-11-06] MEDS: Magnesium Chloride 64 MG TABCR 128 MG PO ×2 (09:19→19:47)
[2021-11-06] MEDS: Docusate Sodium 100 MG CAP PO ×3 (09:19→19:47)
[2021-11-06] MEDS: guaiFENesin 600 MG TABCR PO ×2 (09:19→19:47)
[2021-11-06] MEDS: diazePAM 2 MG TAB PO ×3 (09:19→19:48)
[2021-11-06] MEDS: Pantoprazole 40 MG TABCR PO (09:20)
[2021-11-06] MEDS: Multivitamin TAB 1 TAB PO (09:21)
[2021-11-06] MEDS: Protein Nutritional Supplement 16 GM 1 OUNCE PACKET PO ×3 (09:21→19:48)
[2021-11-06] MEDS: amLODIPine 10 MG TAB PO (09:21)
[2021-11-06] MEDS: Ascorbic Acid 500 MG TAB PO ×2 (09:21→19:48)
[2021-11-06] MEDS: Polyethylene Glycol 3350 17 GM PACKET PO (09:21)
[2021-11-06] MEDS: Enoxaparin 40 MG/0.4 ML SYR SC (14:39)
[2021-11-06] MEDS: Mirtazapine 15 MG TAB 30 MG PO (19:47)
[2021-11-06] MEDS: LORazepam 1 MG TAB PO (19:48)
[2021-11-07] MEDS: Protein Nutritional Supplement 16 GM 1 OUNCE PACKET PO ×3 (08:47→19:32)
[2021-11-07] MEDS: Polyethylene Glycol 3350 17 GM PACKET PO (08:47)
[2021-11-07] MEDS: DULoxetine 30 MG CAP 60 MG PO (08:48)
[2021-11-07] MEDS: Magnesium Chloride 64 MG TABCR 128 MG PO ×2 (08:48→19:34)
[2021-11-07] MEDS: diazePAM 2 MG TAB PO ×3 (08:48→19:34)
[2021-11-07] MEDS: Ascorbic Acid 500 MG TAB PO ×2 (08:49→19:34)
[2021-11-07] MEDS: Senna TAB 2 TAB PO ×2 (08:49→19:33)
[2021-11-07] MEDS: Pantoprazole 40 MG TABCR PO (08:49)
[2021-11-07] MEDS: Docusate Sodium 100 MG CAP PO ×3 (08:49→19:33)
[2021-11-07] MEDS: Lactobacillus Acidophilus CAP 1 CAP PO ×3 (08:49→19:34)
[2021-11-07] MEDS: Multivitamin TAB 1 TAB PO (08:49)
[2021-11-07] MEDS: guaiFENesin 600 MG TABCR PO ×2 (08:49→19:35)
[2021-11-07] MEDS: Cholecalciferol (Vitamin D3) 1,000 UNIT TAB 1000 UNITS PO (08:49)
[2021-11-07] MEDS: amLODIPine 10 MG TAB PO (08:49)
[2021-11-07 11:19] VITALS: BP 116/77; PULSE 71; RESP 16; TEMP 36.6; O2SAT 95
[2021-11-07] MEDS: Enoxaparin 40 MG/0.4 ML SYR SC (13:09)
[2021-11-07] MEDS: LORazepam 1 MG TAB PO (19:34)
[2021-11-07] MEDS: Mirtazapine 15 MG TAB 30 MG PO (19:35)
--- NOTE | 2021-11-08 09:01 | CMACTNOTE_ITS ---
- If Service Date Differs Date of service: 11/08/21 Time of Service: 09:01 Care Management Activity Note S/O: Favio was sitting up in bed when CM met with him. He continues to engage with CM and shared that he had received a phone call from Helena at [facility] who works with the [facility] program. He missed the call but CM followed up and was able to speak to her. Helena asked if Favio had received group home Medicaid yet and was assured that he had. She stated that he is definitely eligible for CFC and would send his information as well as CM's contact information to someone working with AFC placements. ALCIDES also informed her that Favio has identified a potential home and Helena stated that they would follow up. Favio has been getting up in his motorized wheelchair and continues to engage with friends and family on his Ipad. His parents come to visit often and some of his friends and other relatives do as well. A: Favio is a 56 year old man admitted on 09/01/21 with a UTI P: Favio's discharge plan remains unclear at this time. His superintendent terminal Medicaid has been approved, removing the major barrier to services that has plagued Favio for months. ALCIDES is working with his patient case manager Carla Naranjo at [facility] [place] [facility] to find appropriate placement for Favio. None of the referrals sent to SNFs have generated a response from the facility. Carla has pursued AFC homes and has submitted applications for the 3 agencies serving this area. [facility] is the only agency has responded. CM will continue to support Favio and assess for discharge planning concerns.
[2021-11-08] MEDS: Polyethylene Glycol 3350 17 GM PACKET PO (10:21)
[2021-11-08] MEDS: Protein Nutritional Supplement 16 GM 1 OUNCE PACKET PO ×3 (10:21→20:10)
[2021-11-08] MEDS: Docusate Sodium 100 MG CAP PO ×3 (10:22→20:11)
[2021-11-08] MEDS: Magnesium Chloride 64 MG TABCR 128 MG PO ×2 (10:22→20:11)
[2021-11-08] MEDS: amLODIPine 10 MG TAB PO (10:22)
[2021-11-08] MEDS: Lactobacillus Acidophilus CAP 1 CAP PO ×3 (10:22→20:11)
[2021-11-08] MEDS: DULoxetine 30 MG CAP 60 MG PO (10:22)
[2021-11-08] MEDS: Senna TAB 2 TAB PO ×2 (10:22→20:10)
[2021-11-08] MEDS: Pantoprazole 40 MG TABCR PO (10:22)
[2021-11-08] MEDS: diazePAM 2 MG TAB PO ×3 (10:23→20:11)
[2021-11-08] MEDS: Ascorbic Acid 500 MG TAB PO ×2 (10:23→20:10)
[2021-11-08] MEDS: Multivitamin TAB 1 TAB PO (10:23)
[2021-11-08] MEDS: guaiFENesin 600 MG TABCR PO ×2 (10:23→20:11)
[2021-11-08] MEDS: Cholecalciferol (Vitamin D3) 1,000 UNIT TAB 1000 UNITS PO (10:23)
[2021-11-08] MEDS: Enoxaparin 40 MG/0.4 ML SYR SC (14:43)
[2021-11-08 15:36] VITALS: BP 130/79; PULSE 67; RESP 13; TEMP 35.7; O2SAT 97
[2021-11-08] MEDS: Mirtazapine 15 MG TAB 30 MG PO (20:10)
[2021-11-08] MEDS: LORazepam 1 MG TAB PO (20:11)
--- NOTE | 2021-11-09 | DI.RAD_ITS ---
Exam(s) XR FOOT RT COMPLETE EXAM: XR FOOT RT COMPLETE CLINICAL HISTORY: osteomyelitis R foot. TECHNIQUE: 2D digital imaging was performed. COMPARISON: CR,XR XR FOOT RT LIMITED from 10/27/2021 FINDINGS: BONES: Severe demineralization, unchanged.. No acute fracture is present. Question of contour deform ity of the lateral aspect of the 5th metatarsal head which appears to be in the location of a soft ti ssue ulcer. Findings could represent osteomyelitis.. JOINTS: No dislocation present. SOFT TISSUE: Marked soft tissue swelling around the ankle. Gauze material seen along the 5th ray. IMPRESSION: Question of osteomyelitis of the 5th metatarsal head. Severe disuse osteopenia. DATA REPOSITORY: RADIATION DOSE DELIVERED:
[2021-11-09] MEDS: Polyethylene Glycol 3350 17 GM PACKET PO (10:11)
[2021-11-09] MEDS: amLODIPine 10 MG TAB PO (10:11)
[2021-11-09] MEDS: Lactobacillus Acidophilus CAP 1 CAP PO ×3 (10:11→20:19)
[2021-11-09] MEDS: Senna TAB 2 TAB PO ×2 (10:11→20:19)
[2021-11-09] MEDS: Protein Nutritional Supplement 16 GM 1 OUNCE PACKET PO ×3 (10:11→20:18)
[2021-11-09] MEDS: Ascorbic Acid 500 MG TAB PO ×2 (10:11→20:19)
[2021-11-09] MEDS: Cholecalciferol (Vitamin D3) 1,000 UNIT TAB 1000 UNITS PO (10:12)
[2021-11-09] MEDS: diazePAM 2 MG TAB PO ×3 (10:12→20:19)
[2021-11-09] MEDS: DULoxetine 30 MG CAP 60 MG PO (10:12)
[2021-11-09] MEDS: guaiFENesin 600 MG TABCR PO ×2 (10:12→20:20)
[2021-11-09] MEDS: Multivitamin TAB 1 TAB PO (10:12)
[2021-11-09] MEDS: Pantoprazole 40 MG TABCR PO (10:12)
[2021-11-09] MEDS: Docusate Sodium 100 MG CAP PO ×3 (10:12→20:20)
[2021-11-09] MEDS: Magnesium Chloride 64 MG TABCR 128 MG PO ×2 (10:13→20:19)
[2021-11-09 11:10] VITALS: BP 110/69; PULSE 70; RESP 16; TEMP 36.6; O2SAT 98
[2021-11-09] MEDS: Enoxaparin 40 MG/0.4 ML SYR SC (14:56)
--- NOTE | 2021-11-09 16:56 | W.PM.PROGNOT ---
Date of Service Date of service: 11/09/21 Time of Service: 16:56 Assessment and Plan Assessment and plan (1) Osteomyelitis of right foot: Status: Acute (2) Decubitus skin ulcer: Status: Acute Qualifiers: Pressure injury location: buttock Pressure injury stage: unstageable Laterality: unspecified laterality Qualified Code(s): L89.300 - Pressure ulcer of unspecified buttock, unstageable (3) Insomnia: Status: Acute Qualifiers: Insomnia type: psychophysiologic Qualified Code(s): F51.04 - Psychophysiologic insomnia (4) Constipation due to neurogenic bowel: Status: Acute (5) Quadriplegia: Status: Chronic Assessment and plan: Obtain XR R foot and podiatry consults. Obtain bloodwork to include CBC, CRP, procalcitonin. No abx as the patient is hemodynamically stable and not showing systemic signs of infection. Continue wound care under SB1, [place] [facility] [place]. Continue current doses of antidepressants. Continue bowel regimen. Subjective Subjective Interval history since last seen: Mr Velasquez notes that he has a frog in his throat and, therefore, a cough. He also noted that his right foot is more swollen today. R foot appears to have exposed bone today, per wound care nurse. Denies dizziness, chest pain, shortness of breath, nausea. Exam Narrative Exam Narrative: General: Pleasant middle-aged male who is laying comfortably in bed, appears to be in good spirits, coughing - cough appears moist HEENT: EOMI, MMM Heart: RRR, no m/r/g Lungs: rales anteriorly Abdomen: soft, nontender, nondistended Extremities: B feet with dressings; trace edema R foot; B feet in inflatable heel protectors Objective Last Vital Signs Temp 36.6 C 11/09/21 11:10 Pulse 70 11/09/21 11:10 Resp 16 11/09/21 11:10 BP 110/69 11/09/21 11:10 Pulse Ox 98 11/09/21 11:10
--- NOTE | 2021-11-09 17:45 | DI.VRAD_ITS ---
PROCEDURE INFORMATION: Exam: XR Right Foot Exam date and time: 11/09/2021 4:56 PM Age: 56 years old Clinical indication: Other: Osteomyelitis R foot TECHNIQUE: Imaging protocol: XR Right foot. Views: 3 or more views. COMPARISON: CR XR FOOT RT LIMITED 10/27/2021 4:00 PM FINDINGS: Bones/joints: There are redemonstrated and similar multifocal areas of what appear to be bony demineralization. There is no convincing evidence of an acute fracture or dislocation. Soft tissues: Mild soft tissue swelling IMPRESSION: Similar/stable appearance of the foot with multifocal prominent areas of bony demineralization. Bony erosions cannot be excluded. The presence of infection should be excluded on clinical grounds. Dictated and Authenticated by: Killian Hatfield MD. Ordering:ELA Newton MD
[2021-11-09] MEDS: Furosemide 40 MG TAB PO (17:51)
--- NOTE | 2021-11-09 17:56 | NUR.NOTE ---
Nursing Note: Discussed the findings of the right foot noted with Dr. Murillo. She orders Lasix for the increased swelling of the foot, and An X-ray to check for possibility Osteomylitis.
[2021-11-09] MEDS: LORazepam 1 MG TAB PO (20:19)
[2021-11-09] MEDS: Mirtazapine 15 MG TAB 30 MG PO (20:20)
[2021-11-10] MEDS: Polyethylene Glycol 3350 17 GM PACKET PO (10:09)
[2021-11-10] MEDS: Protein Nutritional Supplement 16 GM 1 OUNCE PACKET PO ×3 (10:09→19:49)
[2021-11-10] MEDS: Ascorbic Acid 500 MG TAB PO ×2 (10:12→19:49)
[2021-11-10] MEDS: diazePAM 2 MG TAB PO ×3 (10:12→19:49)
[2021-11-10] MEDS: DULoxetine 30 MG CAP 60 MG PO (10:12)
[2021-11-10] MEDS: Magnesium Chloride 64 MG TABCR 128 MG PO ×2 (10:12→19:50)
[2021-11-10] MEDS: Cholecalciferol (Vitamin D3) 1,000 UNIT TAB 1000 UNITS PO (10:12)
[2021-11-10 10:13] LABS: Abs Immature Grans 0.02 10^3/uL (0.0-0.06); Absolute Basophil Count 0.04 10^3/uL (0.0-0.2); Absolute Lymphocyte Count 1.91 10^3/uL (1.2-3.4); Absolute Neutrophil Count 3.44 10^3/uL (1.2-6.7); Basophils % 0.7; Eosinophils % 4.9; HCT 41.2 % (40.0-50.0); HGB 13.2 g/dL (13.5-17.5); Immature Grans % 0.3; Lymphocytes % 31.3; MCH 28.4 pg (27.0-33.0); MCV 88.8 fL (80-95); MPV 10.1 fL (8.0-11.0); Monocytes % 6.5; Neutrophils % 56.3; Nucleated RBC 0 %; Platelet Count 202 10^3/uL (130-400); RBC 4.64 10^6/uL (4.36-5.78); RDW 13.4 % (11.8-14.1); RDW-SD 43.8 fL; WBC 6.11 10^3/uL (4.4-10.8)
[2021-11-10] MEDS: Pantoprazole 40 MG TABCR PO (10:14)
[2021-11-10] MEDS: guaiFENesin 600 MG TABCR PO ×2 (10:15→19:49)
[2021-11-10] MEDS: amLODIPine 10 MG TAB PO (10:15)
[2021-11-10] MEDS: Docusate Sodium 100 MG CAP PO ×3 (10:15→19:50)
[2021-11-10] MEDS: Multivitamin TAB 1 TAB PO (10:15)
[2021-11-10] MEDS: Lactobacillus Acidophilus CAP 1 CAP PO ×3 (10:15→19:50)
[2021-11-10] MEDS: Senna TAB 2 TAB PO ×2 (10:16→19:49)
[2021-11-10 10:29] LABS: Anion Gap 10.3 mmol/L (3-11); BUN 26 mg/dL (7-18); C-Reactive Protein 1.53 mg/dL (0.0-0.3); CO2 26.7 mmol/L (21.0-32.0); CREATININE 0.7 mg/dL (0.70-1.30); Calcium 9.2 mg/dL (8.5-10.1); Chloride 105 mmol/L (98-107); Glucose 96 mg/dL (74-106); Magnesium 1.9 mg/dL (1.8-2.4); Potassium 3.6 mmol/L (3.5-5.1); Sodium 142 mmol/L (136-145)
[2021-11-10 10:55] VITALS: BP 121/79; PULSE 74; RESP 20; TEMP 35.8; O2SAT 96
[2021-11-10 11:02] LABS: Procalcitonin < 0.1 ng/mL
--- NOTE | 2021-11-10 12:52 | WOUNDCARE ---
Wound Care Report Dr Silva has conducted a podiatry consult. Confirms the metatarsal head has protruded through the ulceration. He does some clean up at the bedside, but told patient he will need to go to the OR for bone removal. He is writing new wound orders, given to this nurse verbally at the bedside and wound is dressed per Dr. Santillan.
--- NOTE | 2021-11-10 13:00 | W.PODCONSULT ---
Date of service: 11/10/21 Time of Service: 13:02 History of Present Illness History of Present Illness Chief Complaint: ulceration right 5th MPG with bone exposed PFSH All Active Problems Osteomyelitis of right foot (Acute) Paronychia of great toe (Acute) Decubitus skin ulcer (Acute) Insomnia (Acute) Constipation due to neurogenic bowel (Acute) DVT prophylaxis (Acute) Discharge planning issues (Acute) Chronic recurrent multifocal osteomyelitis (Chronic) Palliative care encounter (Acute) S/P colostomy (Chronic) Acute osteomyelitis of sacrum (Chronic) Major depressive disorder (Chronic) Neurogenic bladder (Chronic) Quadriplegia (Chronic) Medical History Acute embolism and thrombosis of deep vein of right lower extremity Anxiety disorder Aspiration into airway C. difficile colitis Constipation Decubitus ulcer of buttock, stage 4 Dislocation of C6/C7 cervical vertebrae DNR (do not resuscitate) DVT (deep venous thrombosis) DVT prophylaxis Encounter for wound care Fall down embankment Fusion of spine H/O deep venous thrombosis Hypokalemia Hypotension Ileus Iron deficiency anemia Large bowel obstruction Malnutrition following gastrointestinal surgery Neurogenic bowel Open wound of abdominal wall Palliative care patient Physician orders for life-sustaining treatment (POLST) form indicates patient wish for qz-klb-rnfvbfircor status Right arm pain Visit for wound check Social History Smoking/Tobacco Use Status: Never Smoking risk assessment performed?: Yes Alcohol Intake: former Drug use: Occasionally Substance use type: marijuana Do you feel safe at home: Yes Do you feel safe in your relationship?: Yes Exam Narrative Exam Narrative: newly identified wound over lying the right 5th mpj. The base of the wound has patel slough with localized erythema noted around the wound margins. The 5th metatarsal head is easily identied within the wound. No cellulitis. xrays are negative for signs of osteo. foot is warm, pulses are palpable. Ingrowing nails are noted affecting the left 1st and 5th toes. Dried exudate noted along the lateral edge of the left 5th toe and both sides of the hallux. No active infection noted. imp: Open joint right 5th mpj Ingrown nails as above plan: 1. debrided the wound right 5th mpj with a #10 scalpel and pick pulling machine operator.. The 5th met head is visible and appears intact, hard, white and glistening. No purulence noted. I will have the wound dressed with anasept gel and a mepilex and advised Mr. Velasquez that the exposed bone should be resected. All questions were answered and he agrees to the surgery, debridment of the wound with resection of the 5th metatarsal head. Will discuss with the hospitalist. 2. Debrided all nails resecting the lateral groove of the left 5th toenail and both grooves the right hallux nail. Results Last Vital Signs Temp 35.8 C L 11/10/21 10:55 Pulse 74 11/10/21 10:55 Resp 20 11/10/21 10:55 BP 121/79 11/10/21 10:55 Pulse Ox 96 11/10/21 10:55 Labs Result diagrams: 11/10/21 10:05 11/10/21 10:05 Labs: Laboratory Results - last 24 hr 11/10/21 11/10/21 11/10/21 10:05 10:05 10:05 WBC 6.11 RBC 4.64 Hgb 13.2 L Hct 41.2 MCV 88.8 MCH 28.4 MCHC 32.0 RDW 13.4 Plt Count 202 MPV 10.1 Immature Gran % 0.3 Neutrophils % 56.3 Lymphocytes % 31.3 Monocytes % 6.5 Eosinophils % 4.9 Basophils % 0.7 Nucleated RBC % 0 Absolute Neutrophils 3.44 Absolute Lymphocytes 1.91 Absolute Monocytes 0.40 Absolute Eosinophils 0.30 Absolute Basophils 0.04 Sodium 142 Potassium 3.6 Chloride 105 Carbon Dioxide 26.7 Anion Gap 10.3 BUN 26 H Creatinine 0.7 Estimated GFR/1.73 m2 >= 60.00 Glucose 96 Calcium 9.2 Magnesium 1.9 C-Reactive Protein 1.53 H Procalcitonin < 0.1
[2021-11-10] MEDS: Acetaminophen 325 MG TAB 650 MG PO (14:54)
[2021-11-10] MEDS: Enoxaparin 40 MG/0.4 ML SYR SC (14:55)
[2021-11-10] MEDS: Mirtazapine 15 MG TAB 30 MG PO (19:50)
[2021-11-10] MEDS: LORazepam 1 MG TAB PO (19:50)
--- NOTE | 2021-11-11 08:02 | PCPN_ITS ---
Date of service: 11/11/21 Time of Service: 08:02 Assessment and Plan Assessment and plan (1) Osteomyelitis of right foot: Status: Acute (2) Insomnia: Status: Acute Qualifiers: Insomnia type: psychophysiologic Qualified Code(s): F51.04 - Psychophysiologic insomnia (3) Quadriplegia: Status: Chronic (4) Major depressive disorder: Status: Chronic Qualifiers: Active/Remission status: currently active Major depression episode severity: moderate Major depression recurrence: single episode Qualified Code(s): F32.1 - Major depressive disorder, single episode, moderate (5) Palliative care encounter: Status: Acute Assessment and plan: Toe osteomyelitis - working with Dr Silva. Depressed over another niecy in his care especically how it would impact his move to another facility/senior living. He was a bit disturbed by the saw in the OR - there was no pain but he didn't like the sound Insomnia - its going ok, not great. He wonders about using melatonin or benedryl again. We discussed risks and benefits and decided to leave his sleep meds as they are Depression - stable He has been getting several visitors lately - this has made him happy He has a possibility on a residential home care placement. I did ask him to think about what would happen when he gets ill again. He is presently on anticoagulation. This dose may be able to be lowered if it was for DVT prophalaxis. I don't believe he has had another episode of atrial fib except when he was acutely ill. Subjective Subjective Interval history since last seen: Concern over toe infection. Favio feels this is 1 more problem in his basket full of problems. He was reassured that Dr. Silva states that this will not hold him up from discharge. He had questions about melatonin and whether he could restart this. In the past he had told me that he did not find it beneficial. I asked him if he would like to restart it and at this point he wanted to leave things be He did have questions about the lorazepam. He had told me he was taking 10 mg of lorazepam and I explained to him that this would be a very very high dose and that in general we did not go above 2 mg. He does not want it raised he was just surprised when I initially told him that 10 mg was not a possibility He talked about possibly going to a residential senior living. He feels like this might be a good match for him as his friend was dating a woman who ran it. Also it was in [place] so he might be able to see his property. He still has the hope that he can return to his own home hire caregivers and live there. He feels that he has gotten wonderful care at [facility] but never wants to return to the hospital setting. I did ask him what should happen when (not if ) he developed urinary tract infections, pneumonia, more bedsores etc. He shrugged his shoulders and did not really have an answer but was very firm that he did not want to return to [facility]. I asked him what he would expect to happen in the residential senior living should he have an illness. Again he did not have any answer Exam Const General: comfortable Nutritional Appearance: average body habitus Orientation: oriented x3 Eyes General: appearance normal, both eyes and all related structures Resp Effort & Inspection: normal respiratory effort and able to speak in complete sentences Cardio Rate: regular rate Objective Last Vital Signs Temp 96.4 F L 11/10/21 10:55 Pulse 74 11/10/21 10:55 Resp 20 11/10/21 10:55 BP 121/79 11/10/21 10:55 Pulse Ox 96 11/10/21 10:55 Laboratory Results - last 24 hr 11/10/21 11/10/21 11/10/21 10:05 10:05 10:05 WBC 6.11 RBC 4.64 Hgb 13.2 L Hct 41.2 MCV 88.8 MCH 28.4 MCHC 32.0 RDW 13.4 Plt Count 202 MPV 10.1 Immature Gran % 0.3 Neutrophils % 56.3 Lymphocytes % 31.3 Monocytes % 6.5 Eosinophils % 4.9 Basophils % 0.7 Nucleated RBC % 0 Absolute Neutrophils 3.44 Absolute Lymphocytes 1.91 Absolute Monocytes 0.40 Absolute Eosinophils 0.30 Absolute Basophils 0.04 Sodium 142 Potassium 3.6 Chloride 105 Carbon Dioxide 26.7 Anion Gap 10.3 BUN 26 H Creatinine 0.7 Estimated GFR/1.73 m2 >= 60.00 Glucose 96 Calcium 9.2 Magnesium 1.9 C-Reactive Protein 1.53 H Procalcitonin < 0.1 Laboratory Tests 10/27/21 11/10/21 15:58 10:05 C-Reactive Protein 2.67 H 1.53 H Foot xray INDINGS: BONES: Severe demineralization, unchanged.. No acute fracture is present. Question of contour deformity of the lateral aspect of the 5th metatarsal head which appears to be in the location of a soft tissue ulcer. Findings could represent osteomyelitis.. JOINTS: No dislocation present. SOFT TISSUE: Marked soft tissue swelling around the ankle. Gauze material seen along the 5th ray. IMPRESSION: Question of osteomyelitis of the 5th metatarsal head. Severe disuse osteopenia.
[2021-11-11 11:04] VITALS: BP 111/73; PULSE 61; RESP 18; TEMP 35.9; O2SAT 96
--- NOTE | 2021-11-11 12:51 | W.PM.OP ---
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 He is being brought to the OR for debridement of the wound and excision of infected bone. He understands risk and complications pertaining to scarring, delayed healing healing, ongoing infection requiring revisional procedures and further loss of bony tissue. No promises have been made to the final outcome of surgery. All questions have been answered. Informed consent was obtained. Findings: Purulent material was noted within the medullary tissue of the fifth metatarsal head and base of the proximal phalanx. Procedure Description: Bruce was brought to the operative suite placed in the supine position with the right foot was prepped and draped in the usual podiatric fashion. Timeout was performed for safe surgery. I anesthetized the fifth ray with 10 cc of a 50: 50 mixture 1% lidocaine with epinephrine, 0.5% Marcaine plain. Attention was directed to the lateral aspect of the right foot where a full-thickness ulceration was appreciated extending to the fifth metatarsal head open fifth MPJ. I excised the ulceration leaving approximately 2 mm of margin around the wound. Once this was excised the remaining tissue appeared healthy. No purulence was seen at this level. Soft tissue dissection was carried out down at the bone level going right through the joint and removing soft tissue plantarly along the fifth metatarsal base extending laterally and proximally. A metatarsal McGlamry elevator was used to further strip away the soft tissues inspection of the fifth metatarsal head revealed some erosive change management facilitator the dorsal lateral aspect of the metatarsal head. With power instrumentation I removed approximately a centimeter of bone. Yellowish pus was noted within the medullary canal. The bone was softened but this is not atypical for Bruce who is nonambulatory. With a round sure several pieces of bone were removed and sent to microbiology for aerobic and anaerobic cultures. I then went back in and further removed some slough tissue from the fifth metatarsal shaft and removed another 4 mm of bone until I felt like it got back to something more viable and free of gross infection. The plantar surface was rasped removing any irregular surfaces. Attention was now directed to the base of the proximal phalanx and I removed approximately 3 to 4 mm of bone. This also was suspect for purulence within the medullary canal this was sent to pathology in a separate container for evaluation. Palpation of the soft tissues failed to reveal any pockets of pus or any additional signs of infection the wound was copiously irrigated with normal saline. 2 g of Rocephin IV was then ordered to be infused. I decided to loosely close the wound over iodoform gauze packing tape and accomplish this with quarter inch Nu Gauze and 3-0 nylon in simple interrupted fashion. A bulky dressing was then applied consisting of fluffs Kerlix rolls x2 stockinette and an Ervin wrap. Bruce left the OR with vital signs stable vascular status intact sharp and sponge counts were correct. He will remain in-house on the swing bed status.
[2021-11-11 13:02] VITALS: BP 96/60; PULSE 74; RESP 17; TEMP 35.6; O2SAT 93
--- NOTE | 2021-11-11 14:17 | W.ANESPOSTOP ---
Postoperative Evaluation Date, Time and Location Date Performed: 11/11/21 Time Performed: 13:30 Patient Location: Med/Surg Vital Signs Most Recent Imported Vital Signs: Most Recent Vital Signs Temp Pulse Resp BP Pulse Ox 35.6 C L 74 17 96/60 L 93 11/11/21 13:02 11/11/21 13:02 11/11/21 13:02 11/11/21 13:02 11/11/21 13:02 Pain Score Most Recent Pain Score: Most Recent Pain Score Pain Level [general] 0 10/15/21 15:39 Pain Level 0 11/11/21 13:02 Assessment Mental Status: Awake (Alert & Oriented to Patient Baseline) Airway and Respiratory Function: Patent airway with normal (patient baseline) respiratory exam Cardiovascular Function: Hemodynamically Stable Hydration Status: Adequately Hydrated Nausea & Vomiting: No Nausea or Vomiting Pain: Pt. Denies Any Pain Peripheral Nerve Block: Patient did not receive a nerve block
[2021-11-11] MEDS: Lactobacillus Acidophilus CAP 1 CAP PO ×2 (14:21→19:55)
[2021-11-11] MEDS: Protein Nutritional Supplement 16 GM 1 OUNCE PACKET PO ×2 (14:21→19:56)
[2021-11-11] MEDS: diazePAM 2 MG TAB PO ×2 (14:21→19:53)
[2021-11-11] MEDS: Docusate Sodium 100 MG CAP PO ×2 (14:21→19:54)
[2021-11-11] MEDS: Senna TAB 2 TAB PO (19:52)
[2021-11-11] MEDS: LORazepam 1 MG TAB PO (19:53)
[2021-11-11] MEDS: Magnesium Chloride 64 MG TABCR 128 MG PO (19:54)
[2021-11-11] MEDS: Mirtazapine 15 MG TAB 30 MG PO (19:55)
[2021-11-11] MEDS: Ascorbic Acid 500 MG TAB PO (19:55)
[2021-11-11] MEDS: guaiFENesin 600 MG TABCR PO (19:55)
[2021-11-11] MEDS: Normal Saline Flush 10 ML SYR IVP (20:05)
[2021-11-12 07:32] VITALS: BP 131/91; PULSE 96; RESP 18; TEMP 37; O2SAT 96
[2021-11-12] MEDS: Multivitamin TAB 1 TAB PO (08:10)
[2021-11-12] MEDS: Polyethylene Glycol 3350 17 GM PACKET PO (08:10)
[2021-11-12] MEDS: Protein Nutritional Supplement 16 GM 1 OUNCE PACKET PO ×3 (08:10→19:57)
[2021-11-12] MEDS: Lactobacillus Acidophilus CAP 1 CAP PO ×3 (08:10→19:57)
[2021-11-12] MEDS: Senna TAB 2 TAB PO ×2 (08:10→19:57)
[2021-11-12] MEDS: guaiFENesin 600 MG TABCR PO ×2 (08:10→19:58)
[2021-11-12] MEDS: amLODIPine 10 MG TAB PO (08:10)
[2021-11-12] MEDS: Docusate Sodium 100 MG CAP PO ×3 (08:10→19:58)
[2021-11-12] MEDS: Magnesium Chloride 64 MG TABCR 128 MG PO ×2 (08:10→19:58)
[2021-11-12] MEDS: diazePAM 2 MG TAB PO ×3 (08:11→19:58)
[2021-11-12] MEDS: DULoxetine 30 MG CAP 60 MG PO (08:11)
[2021-11-12] MEDS: Cholecalciferol (Vitamin D3) 1,000 UNIT TAB 1000 UNITS PO (08:11)
[2021-11-12] MEDS: Pantoprazole 40 MG TABCR PO (08:11)
[2021-11-12] MEDS: Ascorbic Acid 500 MG TAB PO ×2 (08:11→19:59)
[2021-11-12 11:02] VITALS: BP 133/86; PULSE 73; RESP 18; TEMP 37.7; O2SAT 95
[2021-11-12] MEDS: cefTRIAXone 2 GM/50 ML BAG IVPB (11:07)
[2021-11-12] MEDS: Acetaminophen 325 MG TAB 650 MG PO (11:08)
[2021-11-12 12:17] VITALS: TEMP 37.1
--- NOTE | 2021-11-12 18:00 | W.PM.PROGNOT ---
Date of Service Date of service: 11/12/21 Time of Service: 18:00 Subjective Subjective Patient reports: no new complaints Exam Narrative Exam Narrative: S: resting comfortably in bed. Voices no complaints related to his right foot. O: VSS. Microbiology reports GM Positive daphne, ID and sensitivities pending Dressings are dry and clean. The dressings were removed. The incision is intact. No cellulites noted, no odor. Good CFT to all toes, calves soft to palpation.. The suture are intact. A: post op day 1 uncomplicated as above P: The iodoform drains were removed without difficulty. The incision and serge wound area was painted with betadine solution and dressed with adaptic, gauze, kerlix roll and an carie wrap. Continue current ABX, Ceftriaxone 2 gms pending micro results/sensitivities. I will restart his anticoagulant tomorrow. I discussed the case with Dr. Murillo. Objective Last Vital Signs Temp 37.1 C 11/12/21 12:17 Pulse 73 11/12/21 11:02 Resp 18 11/12/21 11:02 BP 133/86 11/12/21 11:02 Pulse Ox 95 11/12/21 11:02
[2021-11-12] MEDS: Normal Saline Flush 10 ML SYR IVP (19:57)
[2021-11-12] MEDS: LORazepam 1 MG TAB PO (19:58)
[2021-11-12] MEDS: Mirtazapine 15 MG TAB 30 MG PO (19:58)
[2021-11-13] MEDS: Protein Nutritional Supplement 16 GM 1 OUNCE PACKET PO ×3 (10:40→20:14)
[2021-11-13] MEDS: Normal Saline Flush 10 ML SYR IVP (10:40)
[2021-11-13] MEDS: Polyethylene Glycol 3350 17 GM PACKET PO (10:40)
[2021-11-13] MEDS: Multivitamin TAB 1 TAB PO (10:42)
[2021-11-13] MEDS: Magnesium Chloride 64 MG TABCR 128 MG PO ×2 (10:42→20:14)
[2021-11-13] MEDS: diazePAM 2 MG TAB PO ×3 (10:42→20:15)
[2021-11-13] MEDS: Cholecalciferol (Vitamin D3) 1,000 UNIT TAB 1000 UNITS PO (10:42)
[2021-11-13] MEDS: DULoxetine 30 MG CAP 60 MG PO (10:42)
[2021-11-13] MEDS: Pantoprazole 40 MG TABCR PO (10:43)
[2021-11-13] MEDS: Docusate Sodium 100 MG CAP PO ×3 (10:43→20:15)
[2021-11-13] MEDS: guaiFENesin 600 MG TABCR PO ×2 (10:44→20:14)
[2021-11-13] MEDS: Ascorbic Acid 500 MG TAB PO ×2 (10:44→20:15)
[2021-11-13] MEDS: amLODIPine 10 MG TAB PO (10:44)
[2021-11-13] MEDS: Senna TAB 2 TAB PO ×2 (10:44→20:15)
[2021-11-13] MEDS: Lactobacillus Acidophilus CAP 1 CAP PO ×3 (10:44→20:14)
[2021-11-13 11:28] VITALS: BP 131/82; PULSE 72; RESP 17; TEMP 36.4; O2SAT 97
[2021-11-13] MEDS: cefTRIAXone 2 GM/50 ML BAG IVPB (12:03)
[2021-11-13] MEDS: Enoxaparin 40 MG/0.4 ML SYR SC (15:12)
[2021-11-13] MEDS: levoFLOXacin 500 MG, levoFLOXacin 250 MG 750 MG PO (18:05)
[2021-11-13] MEDS: LORazepam 1 MG TAB PO (20:15)
[2021-11-13] MEDS: Mirtazapine 15 MG TAB 30 MG PO (20:15)
--- NOTE | 2021-11-14 07:46 | W.PM.PROGNOT ---
Date of Service Date of service: 11/14/21 Time of Service: 07:46 Subjective Subjective Interval history since last seen: Yesterday, 11/13/20, the patient had requested adamantly that his IV be removed. Myself, a number of nurses and care management had tried to convince Favio to have the IV placed back until we had further information on speciation/sensitivities from the bone culture (was growing Staph, not aureus, and GNR). The patient adamantly refused, except for a PICC line which he would consider if it were placed by a specific staff member, who is not available and won't be available for the foreseeable future. The patient requested that oral antibiotics be given instead. I had an extensive conversation with him about the fact that I did not have enough information about the cultures in order to be able to prescribe an effective antibiotic and that, without an appropriate antibiotic, he could have a worsening infection and could . Favio would not budge not just in conversation with myself, but with any other staff member that tried talking to him. I discussed the case with Dr Silva who, too, recommended IV antibiotics given the purulence of the bone he resected. I had empiriclaly put the patient on oral levofloxacin since this was all he would accept yesterday, but this morning his sensitivities are back, and he is growing two bacteria not sensitive to fluoroquinolones.He is growing Staph Warneri, sensitive to vancomycin, and proteus sensitive to ceftriaxone. This is what I ordered, but patient's compliance will ultimately determine success of the treatment. We will continue to reinforce compliance and I will attempt to contact his psychiatrist to see if Dr Astorga can help us figure out barriers to Favio getting appropriate treatment. Objective Last Vital Signs Temp 36.4 C L 11/13/21 11:28 Pulse 72 11/13/21 11:28 Resp 17 11/13/21 11:28 BP 131/82 11/13/21 11:28 Pulse Ox 97 11/13/21 11:28
[2021-11-14] MEDS: Protein Nutritional Supplement 16 GM 1 OUNCE PACKET PO ×3 (10:32→20:03)
[2021-11-14] MEDS: Polyethylene Glycol 3350 17 GM PACKET PO (10:32)
[2021-11-14] MEDS: Senna TAB 2 TAB PO ×2 (10:33→20:01)
[2021-11-14] MEDS: amLODIPine 10 MG TAB PO (10:33)
[2021-11-14] MEDS: Lactobacillus Acidophilus CAP 1 CAP PO ×3 (10:33→20:02)
[2021-11-14] MEDS: Magnesium Chloride 64 MG TABCR 128 MG PO ×2 (10:33→20:03)
[2021-11-14] MEDS: guaiFENesin 600 MG TABCR PO ×2 (10:33→20:02)
[2021-11-14] MEDS: DULoxetine 30 MG CAP 60 MG PO (10:33)
[2021-11-14] MEDS: Cholecalciferol (Vitamin D3) 1,000 UNIT TAB 1000 UNITS PO (10:33)
[2021-11-14] MEDS: Pantoprazole 40 MG TABCR PO (10:34)
[2021-11-14] MEDS: diazePAM 2 MG TAB PO ×3 (10:34→20:02)
[2021-11-14] MEDS: Docusate Sodium 100 MG CAP PO ×3 (10:34→20:02)
[2021-11-14] MEDS: Multivitamin TAB 1 TAB PO (10:34)
[2021-11-14] MEDS: Ascorbic Acid 500 MG TAB PO ×2 (10:39→20:02)
[2021-11-14 10:46] LABS: Abs Immature Grans 0.01 10^3/uL (0.0-0.06); Absolute Basophil Count 0.02 10^3/uL (0.0-0.2); Absolute Eosinophil Count 0.29 10^3/uL (0.0-0.7); Absolute Lymphocyte Count 1.46 10^3/uL (1.2-3.4); Absolute Monocyte Count 0.43 10^3/uL (0.1-0.8); Absolute Neutrophil Count 3.26 10^3/uL (1.2-6.7); Basophils % 0.4; Eosinophils % 5.3; HCT 39.1 % (40.0-50.0); HGB 12.5 g/dL (13.5-17.5); Immature Grans % 0.2; Lymphocytes % 26.7; MCH 28.4 pg (27.0-33.0); MCV 88.9 fL (80-95); Monocytes % 7.9; Neutrophils % 59.5; Nucleated RBC 0 %; Platelet Count 210 10^3/uL (130-400); RDW 13.4 % (11.8-14.1); WBC 5.47 10^3/uL (4.4-10.8)
[2021-11-14 11:06] LABS: Anion Gap 9.1 mmol/L (3-11); BUN 25 mg/dL (7-18); CO2 24.9 mmol/L (21.0-32.0); CREATININE 0.6 mg/dL (0.70-1.30); Calcium 9.4 mg/dL (8.5-10.1); Chloride 105 mmol/L (98-107); Glucose 98 mg/dL (74-106); Sodium 139 mmol/L (136-145)
[2021-11-14 11:07] LABS: C-Reactive Protein 3.04 mg/dL (0.0-0.3)
[2021-11-14 11:41] LABS: Procalcitonin < 0.1 ng/mL
--- NOTE | 2021-11-14 12:13 | W.NUTRFU ---
Date of service: 11/14/21 Time of Service: 12:13 Nutrition Note NOTE: PO intake variable. Weight has been stable. Will continue to follow. Thank you for resuming regular diet versus heart healthy as Favio stated the diet change was upsetting to him as it disallowed many of his favorite menu items here. Time Spent in Nutritional Counseling and Treatment: 0
--- NOTE | 2021-11-14 12:35 | W.PALPGNOTE ---
Date of service: 11/14/21 Time of Service: 12:35 Assessment and Plan Assessment and plan (1) Osteomyelitis of right foot: Status: Acute (2) Major depressive disorder: Status: Chronic Qualifiers: Major depression recurrence: single episode Active/Remission status: currently active Major depression episode severity: moderate Qualified Code(s): F32.1 - Major depressive disorder, single episode, moderate (3) Palliative care encounter: Status: Acute Assessment and plan: Favio is very sad today. I think he is processing 2 things 1 is the osteomyelitis in his right foot but also that this may in fact be what his life is like. He was still hoping to get better and to get out of the hospital. He definitely has some hospital-itis and does need to move on unfortunately there has not yet been a place that has been a viable option I talked to Favio about what he does have control over. We will continue this discussion on Thursday I also told him about the [place] maria e called a [place] which is Acceptance Commitment Therapy. It was developed at the [place] to help [place] understand that this was how their life is. Its the new normal. Subjective Subjective Interval history since last seen: Favio is quite and because of the news that he would need IV antibiotics due to the osteomyelitis in his foot. Initially he wanted all IV access taken away, but Chidi states that he did agree to a PICC line. He is very hopeful that this will not impede him moving to another institution. He is very upset that he cannot get back to his normal self. He was very hopeful that he would have more healing than what he has had. From Dr Murillo's note: nterval history since last seen: Yesterday, 11/13/20, the patient had requested adamantly that his IV be removed. Myself, a number of nurses and care management had tried to convince Favio to have the IV placed back until we had further information on speciation/sensitivities from the bone culture (was growing Staph, not aureus, and GNR). The patient adamantly refused, except for a PICC line which he would consider if it were placed by a specific staff member, who is not available and won't be available for the foreseeable future. The patient requested that oral antibiotics be given instead. I had an extensive conversation with him about the fact that I did not have enough information about the cultures in order to be able to prescribe an effective antibiotic and that, without an appropriate antibiotic, he could have a worsening infection and could . Favio would not budge not just in conversation with myself, but with any other staff member that tried talking to him. I discussed the case with Dr Silva who, too, recommended IV antibiotics given the purulence of the bone he resected. I had empiriclaly put the patient on oral levofloxacin since this was all he would accept yesterday, but this morning his sensitivities are back, and he is growing two bacteria not sensitive to fluoroquinolones.He is growing Staph Warneri, sensitive to vancomycin, and proteus sensitive to ceftriaxone. This is what I ordered, but patient's compliance will ultimately determine success of the treatment. We will continue to reinforce compliance and I will attempt to contact his psychiatrist to see if Dr Astorga can help us figure out barriers to Favio getting appropriate treatment. Exam Narrative Exam Narrative: Lying in bed. His legs are spasming causing his iPad to flinch. He looks sadder than I have ever seen him look in the 10 months I have known him Objective Last Vital Signs Temp 97.5 F L 11/13/21 11:28 Pulse 72 11/13/21 11:28 Resp 17 11/13/21 11:28 BP 131/82 11/13/21 11:28 Pulse Ox 97 11/13/21 11:28 Laboratory Results - last 24 hr 11/14/21 11/14/21 11/14/21 10:25 10:25 10:25 WBC RBC Hgb Hct MCV MCH MCHC RDW Plt Count MPV Immature Gran % Neutrophils % Lymphocytes % Monocytes % Eosinophils % Basophils % Nucleated RBC % Absolute Neutrophils Absolute Lymphocytes Absolute Monocytes Absolute Eosinophils Absolute Basophils Sodium 139 Potassium 4.0 Chloride 105 Carbon Dioxide 24.9 Anion Gap 9.1 BUN 25 H Creatinine 0.6 L Estimated GFR/1.73 m2 >= 60.00 Glucose 98 Calcium 9.4 C-Reactive Protein 3.04 H Procalcitonin < 0.1 11/14/21 10:25 WBC 5.47 RBC 4.40 Hgb 12.5 L Hct 39.1 L MCV 88.9 MCH 28.4 MCHC 32.0 RDW 13.4 Plt Count 210 MPV 10.0 Immature Gran % 0.2 Neutrophils % 59.5 Lymphocytes % 26.7 Monocytes % 7.9 Eosinophils % 5.3 Basophils % 0.4 Nucleated RBC % 0 Absolute Neutrophils 3.26 Absolute Lymphocytes 1.46 Absolute Monocytes 0.43 Absolute Eosinophils 0.29 Absolute Basophils 0.02 Sodium Potassium Chloride Carbon Dioxide Anion Gap BUN Creatinine Estimated GFR/1.73 m2 Glucose Calcium C-Reactive Protein Procalcitonin
--- NOTE | 2021-11-14 13:36 | PDOC.ANES ---
Date of service: 11/14/21 Time of Service: 13:36 Anesthesia Note Report Anesthesia Note: Was requested to place a midline for antibiotic therapy. Discussed the process and what it would entail. In an attempt to get the left arm in slightly different position there was clearly discomfort and I was asked to stop moving it. I then moved to the right arm, and with a tourniquet, was able to visualize the basilic vein in a spot that I felt I could access it. I was told I have one shot. I expressed to him that given the inability to move his arms more than what they are, it might not be possible to be a single attempt midline. I stated that I will being doing this fully sterile also, incase he needs a PICC, and it is determined that the midline is okay to swap over a wire. He expressed frustration and then refused the midline and stated he will wait for Ruby. I expressed that she is not back for a few days and that refusing this would potentially lead to his inability to get his antibiotics. He states understanding of this. I stated again before I left the room that refusal of the midline means that he will not get his needed therapy which could be catastrophic, I also again asked about placing a PIV. He still refuses to have a midline place or a PIV placed at this time. His RN was made aware.
[2021-11-14] MEDS: Enoxaparin 40 MG/0.4 ML SYR SC (14:33)
--- NOTE | 2021-11-14 17:37 | CMACTNOTE_ITS ---
- If Service Date Differs Date of service: 11/14/21 Time of Service: 17:37 Care Management Activity Note S/O: Favio has been getting up in his motorized wheelchair and continues to engage with friends and family on his Ipad. His parents come to visit often and some of his friends and other relatives do as well. Favio would enjoy music and pet therapy if they become available. Due to his limited mobility, items from the activity caret are not appropriate. CM visits with Favio on a regular basis and staff have been spending extra time with him and decorated his room for the holiday season. A: Favio is a 56 year old man admitted on 09/01/21 with a UTI P: Favio's discharge plan remains unclear at this time. 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 Carla, his field case manager at [facility] has pursued [facility] and has submitted applications for the 3 agencies serving this area. [facility] is the only agency that has responded. Today CM contacted Samantha Kulkarni at [facility], complex care team and [facility] transition coordinator, for assistance. A message was left. CM will continue to support Favio and assess for discharge planning concerns.
--- NOTE | 2021-11-14 17:44 | CMPROGNOTE_ITS ---
- If Service Date Differs Date of service: 11/14/21 Time of Service: 17:44 Care Management Progress Note S/O: Favio has been sharing with [facility] and his providers, that he had an [facility] home in [place], [place] that was agreeable to taking him as a client. [facility] was finally able to get contact information for the person in question and learned that there had been a miscommunication. He has a friend whose girlfriend runs an [facility] home but she does not have any openings. When Favio was told this by [facility] he was very disappointed. Additionally, he had surgery on his toe on Thursday and has learned that he has a new site of osteomyelitis that will require another extended course of antibiotics. Yesterday Favio refused to have an IV inserted and today, when told by the provider with [facility] present that he could become septic and if the infection is not treated, Favio responded I don't care if I . [facility]ES cont acted Dr. Zhu from Palliative Care and requested that she visit Favio again, which she did. A: Favio is a 56 year old man admitted on 09/01/21 with a UTI P: Favio's discharge plan remains unclear at this time. His senior living Medicaid has been approved, however none of the referrals sent to SNFs have generated a response from the facilities. Carla, his case maker at [facility], has pursued [facility] homes and has submitted applications for the 3 agencies serving this area. [facility] is the only agency that has responded. Today ALCIDES contacted Samantha Kulkarni at [facility], complex care team and [facility] transition coordinator, for assistance. A message was left. [facility] will continue to support Favio and assess for discharge planning concerns.
--- NOTE | 2021-11-14 18:55 | W.PM.PROGNOT ---
Date of Service Date of service: 11/14/21 Time of Service: 18:55 Subjective Subjective Patient reports: no new complaints Exam Narrative Exam Narrative: Favio is seen at bedside resting comfortably. He is cordial when I entered the room. Dressings on his right foot clean and dry no signs of bleeding or drainage. Objective: Sensitivities have returned from the surgical specimens and he has staph warnerii and Proteus mirabilis species. Resistance to penicillin and levofloxacin noted. Today's lab results were reviewed CRP is elevated but his remaining labs look favorable. Dressings are removed from his right foot. No cellulitis is observed. The wound appears clean with suture intact. No bleeding or drainage noted. He has good capillary return to all toes and no additional wounds noted on his right foot at this time. His calves are soft to palpation. No findings of DVT. Impressions: 72 hours status post debridement with resection fifth MPJ right foot foot neuropathic wound and osteomyelitis Plan: I explained to Favio that with appropriate IV antibiotics, there is an excellent chance that his wounds will heal uneventfully. Unfortunately, he is suffering from a degree of depression and Hospitalitis and is refusing IVs and IV therapy. I did explain to Favio that with inappropriate antibiotic management, the osteomyelitis may not clear completely and for the loss of tissue, sepsis potentially life-threatening may occur. Dr. Murillo, acting hospitalist, and Dr. Zhu providing palliative care have spoken with Favio earlier in the day emphasizing the importance of proper antibiotic management for this infection. The wound was dressed with Xeroform, gauze, Kerlix roll, flex net and Ervin wrap. I will continue to provide supportive care and wound management. Objective Last Vital Signs Temp 36.4 C L 11/13/21 11:28 Pulse 72 11/13/21 11:28 Resp 17 11/13/21 11:28 BP 131/82 11/13/21 11:28 Pulse Ox 97 11/13/21 11:28 Laboratory Results - last 24 hr 11/14/21 11/14/21 11/14/21 10:25 10:25 10:25 WBC RBC Hgb Hct MCV MCH MCHC RDW Plt Count MPV Immature Gran % Neutrophils % Lymphocytes % Monocytes % Eosinophils % Basophils % Nucleated RBC % Absolute Neutrophils Absolute Lymphocytes Absolute Monocytes Absolute Eosinophils Absolute Basophils Sodium 139 Potassium 4.0 Chloride 105 Carbon Dioxide 24.9 Anion Gap 9.1 BUN 25 H Creatinine 0.6 L Estimated GFR/1.73 m2 >= 60.00 Glucose 98 Calcium 9.4 C-Reactive Protein 3.04 H Procalcitonin < 0.1 11/14/21 10:25 WBC 5.47 RBC 4.40 Hgb 12.5 L Hct 39.1 L MCV 88.9 MCH 28.4 MCHC 32.0 RDW 13.4 Plt Count 210 MPV 10.0 Immature Gran % 0.2 Neutrophils % 59.5 Lymphocytes % 26.7 Monocytes % 7.9 Eosinophils % 5.3 Basophils % 0.4 Nucleated RBC % 0 Absolute Neutrophils 3.26 Absolute Lymphocytes 1.46 Absolute Monocytes 0.43 Absolute Eosinophils 0.29 Absolute Basophils 0.02 Sodium Potassium Chloride Carbon Dioxide Anion Gap BUN Creatinine Estimated GFR/1.73 m2 Glucose Calcium C-Reactive Protein Procalcitonin
[2021-11-14] MEDS: LORazepam 1 MG TAB PO (20:02)
[2021-11-14] MEDS: Mirtazapine 15 MG TAB 30 MG PO (20:02)
[2021-11-14] MEDS: Sulfameth/Trimeth DS TAB 2 TAB PO (20:02)
[2021-11-14] MEDS: Cefpodoxime 200 MG TAB 400 MG PO (20:03)
[2021-11-15] MEDS: Magnesium Chloride 64 MG TABCR 128 MG PO ×2 (10:34→20:16)
[2021-11-15] MEDS: DULoxetine 30 MG CAP 60 MG PO (10:34)
[2021-11-15] MEDS: Polyethylene Glycol 3350 17 GM PACKET PO (10:34)
[2021-11-15] MEDS: Cefpodoxime 200 MG TAB 400 MG PO ×2 (10:34→20:17)
[2021-11-15] MEDS: Senna TAB 2 TAB PO ×2 (10:34→20:17)
[2021-11-15] MEDS: Protein Nutritional Supplement 16 GM 1 OUNCE PACKET PO ×3 (10:34→20:16)
[2021-11-15] MEDS: Lactobacillus Acidophilus CAP 1 CAP PO ×3 (10:35→20:16)
[2021-11-15] MEDS: Sulfameth/Trimeth DS TAB 2 TAB PO ×2 (10:35→20:16)
[2021-11-15] MEDS: diazePAM 2 MG TAB PO ×3 (10:35→20:16)
[2021-11-15] MEDS: Docusate Sodium 100 MG CAP PO ×3 (10:35→20:16)
[2021-11-15] MEDS: guaiFENesin 600 MG TABCR PO ×2 (10:35→20:16)
[2021-11-15] MEDS: Cholecalciferol (Vitamin D3) 1,000 UNIT TAB 1000 UNITS PO (10:35)
[2021-11-15] MEDS: Multivitamin TAB 1 TAB PO (10:35)
[2021-11-15] MEDS: amLODIPine 10 MG TAB PO (10:36)
[2021-11-15] MEDS: Ascorbic Acid 500 MG TAB PO ×2 (10:36→20:16)
[2021-11-15] MEDS: Pantoprazole 40 MG TABCR PO (10:36)
[2021-11-15] MEDS: Enoxaparin 40 MG/0.4 ML SYR SC (14:09)
--- NOTE | 2021-11-15 14:23 | CHAPLAIN ---
Favio showed me an ad for a house for rent that someone had forwarded to his iPad. He's not able to open the whole ad to see where the home is, although it's listed as being in the [facility] area. He still has hopes of living in home and having a normal life. He seems frustrated by people encouraging him to accept that his is his normal life now. This isn't normal, he said of being in the hospital for so long. Because Favio has refused an IV for antibiotics for an infected toe, clinical staff have been trying to persuade Favio to accept his immobility and agree to the IV,a s an infection good spread and be terminal for him. He has not agreed yet, according to notes from Dr. Murillo, Dr. Herrera and Dr. Zhu. Favio said he is aware of a care bed in [place], not to far from [facility], but it doesn't want his daughter to travel too far to visit him. I suggested his daughter likely wouldn't mind travel to [place] as she lives in [facility]. Favio talked about the movies he's been watching lately. He has a new iPad and is having trouble connecting to his [employer] account. Favio told me the someone mentioned that January will erika a year since he has been at [facility], and the person said he should celebrate the anniversary. Favio said it is not something he wants to celebrate. He continues to speak with his counselor every two weeks.
[2021-11-15 16:02] VITALS: BP 119/77; PULSE 76; RESP 16; TEMP 37.3; O2SAT 96
--- NOTE | 2021-11-15 18:02 | W.PM.PROGNOT ---
Date of Service Date of service: 11/15/21 Time of Service: 18:02 Subjective Subjective Interval history since last seen: Favio refused to have an appointment today with Dr Maya of psychiatry, stating he will just keep the appointment that he already has scheduled with her for next week. He continues to consent to IV antibiotics only through a PICC line placed by Ruby Lay, who is not available until next week. He was unwilling to give anesthesia more than one try to place a midline yesterday. He is aware of the risk of losing his leg and systemic infection. He was initiated on bactrim/cefpodoxime until a PICC line is available, though the providers all understand and agree that this therapy is not ideal. Objective Last Vital Signs Temp 37.3 C 11/15/21 16:02 Pulse 76 11/15/21 16:02 Resp 16 11/15/21 16:02 BP 119/77 11/15/21 16:02 Pulse Ox 96 11/15/21 16:02
[2021-11-15] MEDS: LORazepam 1 MG TAB PO (20:16)
[2021-11-15] MEDS: Mirtazapine 15 MG TAB 30 MG PO (20:16)
[2021-11-16 10:47] VITALS: BP 144/89; PULSE 70; RESP 18; TEMP 36.7; O2SAT 96
[2021-11-16] MEDS: Polyethylene Glycol 3350 17 GM PACKET PO (10:59)
[2021-11-16] MEDS: Protein Nutritional Supplement 16 GM 1 OUNCE PACKET PO ×3 (10:59→19:34)
[2021-11-16] MEDS: Magnesium Chloride 64 MG TABCR 128 MG PO ×2 (10:59→19:36)
[2021-11-16] MEDS: Multivitamin TAB 1 TAB PO (11:00)
[2021-11-16] MEDS: Docusate Sodium 100 MG CAP PO ×3 (11:00→19:35)
[2021-11-16] MEDS: DULoxetine 30 MG CAP 60 MG PO (11:00)
[2021-11-16] MEDS: Cefpodoxime 200 MG TAB 400 MG PO ×2 (11:00→19:36)
[2021-11-16] MEDS: Sulfameth/Trimeth DS TAB 2 TAB PO ×2 (11:00→19:35)
[2021-11-16] MEDS: amLODIPine 10 MG TAB PO (11:00)
[2021-11-16] MEDS: Senna TAB 2 TAB PO ×2 (11:00→19:34)
[2021-11-16] MEDS: guaiFENesin 600 MG TABCR PO ×2 (11:00→19:34)
[2021-11-16] MEDS: Cholecalciferol (Vitamin D3) 1,000 UNIT TAB 1000 UNITS PO (11:00)
[2021-11-16] MEDS: Lactobacillus Acidophilus CAP 1 CAP PO ×3 (11:01→19:35)
[2021-11-16] MEDS: diazePAM 2 MG TAB PO ×3 (11:01→19:35)
[2021-11-16] MEDS: Ascorbic Acid 500 MG TAB PO ×2 (11:01→19:35)
[2021-11-16] MEDS: Pantoprazole 40 MG TABCR PO (12:08)
[2021-11-16] MEDS: Enoxaparin 40 MG/0.4 ML SYR SC (15:12)
[2021-11-16] MEDS: LORazepam 1 MG TAB PO (19:35)
[2021-11-16] MEDS: Mirtazapine 15 MG TAB 30 MG PO (19:36)
[2021-11-16 19:40] VITALS: BP 143/82; PULSE 94; RESP 18; TEMP 36.8; O2SAT 95
[2021-11-17 10:33] VITALS: BP 112/76; PULSE 73; RESP 17; TEMP 36.7; O2SAT 97
[2021-11-17] MEDS: amLODIPine 10 MG TAB PO (11:05)
[2021-11-17] MEDS: guaiFENesin 600 MG TABCR PO ×2 (11:05→20:03)
[2021-11-17] MEDS: Multivitamin TAB 1 TAB PO (11:06)
[2021-11-17] MEDS: Sulfameth/Trimeth DS TAB 2 TAB PO ×2 (11:06→20:04)
[2021-11-17] MEDS: Magnesium Chloride 64 MG TABCR 128 MG PO ×2 (11:06→20:03)
[2021-11-17] MEDS: Cefpodoxime 200 MG TAB 400 MG PO ×2 (11:06→20:03)
[2021-11-17] MEDS: DULoxetine 30 MG CAP 60 MG PO (11:06)
[2021-11-17] MEDS: Protein Nutritional Supplement 16 GM 1 OUNCE PACKET PO ×3 (11:07→20:01)
[2021-11-17] MEDS: Lactobacillus Acidophilus CAP 1 CAP PO ×3 (11:07→20:02)
[2021-11-17] MEDS: diazePAM 2 MG TAB PO ×3 (11:07→20:04)
[2021-11-17] MEDS: Pantoprazole 40 MG TABCR PO (11:07)
[2021-11-17] MEDS: Senna TAB 2 TAB PO ×2 (11:07→20:02)
[2021-11-17] MEDS: Polyethylene Glycol 3350 17 GM PACKET PO (11:07)
[2021-11-17] MEDS: Docusate Sodium 100 MG CAP PO ×3 (11:07→20:02)
[2021-11-17] MEDS: Cholecalciferol (Vitamin D3) 1,000 UNIT TAB 1000 UNITS PO (11:07)
[2021-11-17] MEDS: Ascorbic Acid 500 MG TAB PO ×2 (11:07→20:03)
[2021-11-17] MEDS: Enoxaparin 40 MG/0.4 ML SYR SC (16:30)
[2021-11-17] MEDS: LORazepam 1 MG TAB PO (20:02)
[2021-11-17] MEDS: Mirtazapine 15 MG TAB 30 MG PO (20:03)
--- NOTE | 2021-11-18 10:06 | W.PALPGNOTE ---
Date of service: 11/18/21 Time of Service: 07:06 Assessment and Plan Assessment and plan (1) Osteomyelitis of right foot: Status: Acute Assessment and plan: PICC line inserted Ceftrianone daily (2) Insomnia: Status: Acute Assessment and plan: receiving mirtazepine and lorazepam. Often a lower dose of mirtazepine is more effective for insomnia Qualifiers: Insomnia type: psychophysiologic Qualified Code(s): F51.04 - Psychophysiologic insomnia (3) Major depressive disorder: Status: Chronic Assessment and plan: This is a major concern at this time. I came in the am and Favio was still asleep. I returned this evening and he was starting his dinner. Dinner is a special social time for Favio. I did not want to interfer with this. We decided I would return another time. I would like to talk about the Acceptance and COmmitment Therapy and see if he was interested in considering it. Qualifiers: Active/Remission status: currently active Major depression episode severity: moderate Major depression recurrence: single episode Qualified Code(s): F32.1 - Major depressive disorder, single episode, moderate (4) Quadriplegia: Status: Chronic (5) Palliative care encounter: Status: Acute Subjective Subjective Interval history since last seen: Favio has been very depressed over the weekend. Staff was concerned about his present attitude vs what they usually see in [place] Exam Narrative Exam Narrative: Sitting in bed, dinner had just arrived Objective Last Vital Signs Temp 98.1 F 11/17/21 10:33 Pulse 73 11/17/21 10:33 Resp 17 11/17/21 10:33 BP 112/76 11/17/21 10:33 Pulse Ox 97 11/17/21 10:33
[2021-11-18] MEDS: Ascorbic Acid 500 MG TAB PO ×2 (10:56→19:57)
[2021-11-18] MEDS: Cefpodoxime 200 MG TAB 400 MG PO (10:56)
[2021-11-18] MEDS: Senna TAB 2 TAB PO ×2 (10:56→19:56)
[2021-11-18] MEDS: Pantoprazole 40 MG TABCR PO (10:57)
[2021-11-18] MEDS: Sulfameth/Trimeth DS TAB 2 TAB PO ×2 (10:57→19:57)
[2021-11-18] MEDS: diazePAM 2 MG TAB PO ×3 (10:57→19:59)
[2021-11-18] MEDS: Lactobacillus Acidophilus CAP 1 CAP PO ×3 (10:57→19:57)
[2021-11-18] MEDS: DULoxetine 30 MG CAP 60 MG PO (10:57)
[2021-11-18] MEDS: Protein Nutritional Supplement 16 GM 1 OUNCE PACKET PO ×3 (10:58→19:59)
[2021-11-18] MEDS: amLODIPine 10 MG TAB PO (10:58)
[2021-11-18] MEDS: Cholecalciferol (Vitamin D3) 1,000 UNIT TAB 1000 UNITS PO (10:58)
[2021-11-18] MEDS: guaiFENesin 600 MG TABCR PO ×2 (10:58→19:59)
[2021-11-18] MEDS: Docusate Sodium 100 MG CAP PO ×3 (10:58→19:59)
[2021-11-18] MEDS: Multivitamin TAB 1 TAB PO (10:58)
[2021-11-18] MEDS: Polyethylene Glycol 3350 17 GM PACKET PO (10:58)
[2021-11-18] MEDS: Magnesium Chloride 64 MG TABCR 128 MG PO ×2 (10:58→19:57)
[2021-11-18] MEDS: Enoxaparin 40 MG/0.4 ML SYR SC (14:24)
[2021-11-18] MEDS: Normal Saline Flush 10 ML SYR IVP (16:53)
[2021-11-18] MEDS: cefTRIAXone 2 GM/50 ML BAG IVPB (16:53)
[2021-11-18 18:30] VITALS: BP 124/77; PULSE 77; RESP 19; TEMP 37; O2SAT 97
[2021-11-18] MEDS: LORazepam 1 MG TAB PO (19:58)
[2021-11-18] MEDS: Mirtazapine 15 MG TAB 30 MG PO (19:58)
[2021-11-19] MEDS: Protein Nutritional Supplement 16 GM 1 OUNCE PACKET PO ×3 (11:06→19:53)
[2021-11-19] MEDS: Polyethylene Glycol 3350 17 GM PACKET PO (11:06)
[2021-11-19] MEDS: Lactobacillus Acidophilus CAP 1 CAP PO ×3 (11:07→19:52)
[2021-11-19] MEDS: Sulfameth/Trimeth DS TAB 2 TAB PO ×2 (11:07→19:52)
[2021-11-19] MEDS: Multivitamin TAB 1 TAB PO (11:07)
[2021-11-19] MEDS: Senna TAB 2 TAB PO ×2 (11:07→19:52)
[2021-11-19] MEDS: guaiFENesin 600 MG TABCR PO ×2 (11:07→19:52)
[2021-11-19] MEDS: Cholecalciferol (Vitamin D3) 1,000 UNIT TAB 1000 UNITS PO (11:08)
[2021-11-19] MEDS: amLODIPine 10 MG TAB PO (11:08)
[2021-11-19] MEDS: DULoxetine 30 MG CAP 60 MG PO (11:08)
[2021-11-19] MEDS: Docusate Sodium 100 MG CAP PO ×3 (11:08→19:52)
[2021-11-19] MEDS: Pantoprazole 40 MG TABCR PO (11:08)
[2021-11-19 11:09] VITALS: BP 124/81; PULSE 70; RESP 18; TEMP 36.9; O2SAT 95
[2021-11-19] MEDS: diazePAM 2 MG TAB PO ×3 (11:09→19:52)
[2021-11-19] MEDS: Magnesium Chloride 64 MG TABCR 128 MG PO ×2 (11:09→19:52)
[2021-11-19] MEDS: Ascorbic Acid 500 MG TAB PO ×2 (11:09→19:52)
[2021-11-19] MEDS: cefTRIAXone 2 GM/50 ML BAG IVPB (17:54)
[2021-11-19] MEDS: Enoxaparin 40 MG/0.4 ML SYR SC (17:58)
[2021-11-19] MEDS: Mirtazapine 15 MG TAB 30 MG PO (19:52)
[2021-11-19] MEDS: Normal Saline Flush 10 ML SYR IVP (19:53)
[2021-11-19] MEDS: LORazepam 1 MG TAB PO (19:53)
[2021-11-20] MEDS: Polyethylene Glycol 3350 17 GM PACKET PO (08:51)
[2021-11-20] MEDS: Protein Nutritional Supplement 16 GM 1 OUNCE PACKET PO ×3 (08:51→20:25)
[2021-11-20] MEDS: Cholecalciferol (Vitamin D3) 1,000 UNIT TAB 1000 UNITS PO (08:52)
[2021-11-20] MEDS: diazePAM 2 MG TAB PO ×3 (08:53→20:25)
[2021-11-20] MEDS: Sulfameth/Trimeth DS TAB 2 TAB PO ×2 (08:53→20:24)
[2021-11-20] MEDS: Pantoprazole 40 MG TABCR PO (08:53)
[2021-11-20] MEDS: Lactobacillus Acidophilus CAP 1 CAP PO ×3 (08:53→20:25)
[2021-11-20] MEDS: Senna TAB 2 TAB PO ×2 (08:53→20:25)
[2021-11-20] MEDS: guaiFENesin 600 MG TABCR PO ×2 (08:53→20:25)
[2021-11-20] MEDS: Magnesium Chloride 64 MG TABCR 128 MG PO ×2 (08:53→20:25)
[2021-11-20] MEDS: Ascorbic Acid 500 MG TAB PO ×2 (08:53→20:24)
[2021-11-20] MEDS: DULoxetine 30 MG CAP 60 MG PO (08:53)
[2021-11-20] MEDS: Docusate Sodium 100 MG CAP PO ×3 (08:53→20:25)
[2021-11-20] MEDS: amLODIPine 10 MG TAB PO (08:54)
[2021-11-20] MEDS: Multivitamin TAB 1 TAB PO (08:54)
[2021-11-20 10:24] VITALS: BP 108/72; PULSE 71; RESP 18; TEMP 36.4; O2SAT 97
--- NOTE | 2021-11-20 10:25 | PDOC.CMPRO ---
- If Service Date Differs Date of service: 11/20/21 Time of Service: 10:25 Care Management Progress Note S/O: Favio was sitting up in bed when CM met with him. CM informed Favio that she received a call from Stacy Waggoner from [facility] re: a possible [facility] home. A meeting has been scheduled for Thursday at 1pm for Stacy and Trish from [facility] to come to the hospital and set up a face time meeting for Favio with Cary, the [facility] home provider. They will have an opportunity to meet virtually and see the home as well as receive information about Favio's needs and care and what the home and other client are like. Favio stated that he is really excited about the prospect of finally finding a home to go to. A: Favio is a 56 year old man admitted on 09/01/21 with a UTI P: Favio will likely be transferred to an [facility] home once his IVAB course is completed. There is a home in [facility] with a provider who is considering Favio as a client. Her name is Cary and she works with [facility]. There is a meeting scheduled in Favio's room on Thursday where Stacy Waggoner and one of her colleagues from [facility] will set up a face time meeting with Cary to exchange information and determine if the match seems suitable to both parties. CM will continue to support Favio and assess for ongoing discharge planning needs.
[2021-11-20] MEDS: Enoxaparin 40 MG/0.4 ML SYR SC (14:42)
[2021-11-20] MEDS: cefTRIAXone 2 GM/50 ML BAG IVPB (15:46)
[2021-11-20] MEDS: Normal Saline Flush 10 ML SYR IVP ×2 (15:47→20:26)
[2021-11-20] MEDS: Mirtazapine 15 MG TAB 30 MG PO (20:24)
[2021-11-20] MEDS: LORazepam 1 MG TAB PO (20:25)
[2021-11-21] MEDS: Protein Nutritional Supplement 16 GM 1 OUNCE PACKET PO ×3 (08:54→19:59)
[2021-11-21] MEDS: Polyethylene Glycol 3350 17 GM PACKET PO (08:54)
[2021-11-21] MEDS: Docusate Sodium 100 MG CAP PO ×3 (08:55→19:58)
[2021-11-21] MEDS: Ascorbic Acid 500 MG TAB PO ×2 (08:55→19:58)
[2021-11-21] MEDS: DULoxetine 30 MG CAP 60 MG PO (08:55)
[2021-11-21] MEDS: Lactobacillus Acidophilus CAP 1 CAP PO ×3 (08:55→19:58)
[2021-11-21] MEDS: Senna TAB 2 TAB PO ×2 (08:55→19:58)
[2021-11-21] MEDS: diazePAM 2 MG TAB PO ×3 (08:55→19:59)
[2021-11-21] MEDS: amLODIPine 10 MG TAB PO (08:56)
[2021-11-21] MEDS: guaiFENesin 600 MG TABCR PO ×2 (08:56→19:58)
[2021-11-21] MEDS: Magnesium Chloride 64 MG TABCR 128 MG PO ×2 (08:56→19:58)
[2021-11-21] MEDS: Multivitamin TAB 1 TAB PO (08:56)
[2021-11-21] MEDS: Cholecalciferol (Vitamin D3) 1,000 UNIT TAB 1000 UNITS PO (08:56)
[2021-11-21] MEDS: Pantoprazole 40 MG TABCR PO (08:56)
[2021-11-21] MEDS: Sulfameth/Trimeth DS TAB 2 TAB PO ×2 (08:56→19:59)
--- NOTE | 2021-11-21 09:58 | W.NUTRFU ---
Date of service: 11/21/21 Time of Service: 09:58 Nutrition Note NOTE: Weight continues to be stable. PO intake overall has been good. Will continue follow nutritional status. Time Spent in Nutritional Counseling and Treatment: 0
[2021-11-21 11:17] VITALS: BP 102/70; PULSE 69; RESP 16; TEMP 36.4; O2SAT 95
[2021-11-21] MEDS: Enoxaparin 40 MG/0.4 ML SYR SC (14:50)
[2021-11-21] MEDS: Normal Saline Flush 10 ML SYR IVP (16:11)
[2021-11-21] MEDS: cefTRIAXone 2 GM/50 ML BAG IVPB (16:11)
[2021-11-21] MEDS: LORazepam 1 MG TAB PO (19:58)
[2021-11-21] MEDS: Mirtazapine 15 MG TAB 30 MG PO (19:59)
[2021-11-22] MEDS: Polyethylene Glycol 3350 17 GM PACKET PO (08:58)
[2021-11-22] MEDS: Protein Nutritional Supplement 16 GM 1 OUNCE PACKET PO ×3 (08:58→19:45)
[2021-11-22] MEDS: amLODIPine 10 MG TAB PO (08:59)
[2021-11-22] MEDS: diazePAM 2 MG TAB PO ×3 (08:59→19:42)
[2021-11-22] MEDS: Ascorbic Acid 500 MG TAB PO ×2 (08:59→19:44)
[2021-11-22] MEDS: Pantoprazole 40 MG TABCR PO (08:59)
[2021-11-22] MEDS: Lactobacillus Acidophilus CAP 1 CAP PO ×3 (08:59→19:44)
[2021-11-22] MEDS: Senna TAB 2 TAB PO ×2 (08:59→19:43)
[2021-11-22] MEDS: DULoxetine 30 MG CAP 60 MG PO (08:59)
[2021-11-22] MEDS: Magnesium Chloride 64 MG TABCR 128 MG PO ×2 (09:00→19:41)
[2021-11-22] MEDS: Multivitamin TAB 1 TAB PO (09:00)
[2021-11-22] MEDS: Cholecalciferol (Vitamin D3) 1,000 UNIT TAB 1000 UNITS PO (09:00)
[2021-11-22] MEDS: guaiFENesin 600 MG TABCR PO ×2 (09:00→19:41)
[2021-11-22] MEDS: Sulfameth/Trimeth DS TAB 2 TAB PO ×2 (09:00→19:44)
[2021-11-22] MEDS: Docusate Sodium 100 MG CAP PO ×3 (09:00→19:44)
[2021-11-22] MEDS: Enoxaparin 40 MG/0.4 ML SYR SC (14:13)
[2021-11-22 15:10] VITALS: BP 130/76; PULSE 69; RESP 18; TEMP 36.5; O2SAT 96
[2021-11-22] MEDS: cefTRIAXone 2 GM/50 ML BAG IVPB (15:38)
[2021-11-22] MEDS: Normal Saline Flush 10 ML SYR IVP (15:38)
[2021-11-22] MEDS: Bacitracin 1 PACKET (16:09)
--- NOTE | 2021-11-22 16:33 | W.PM.PROGNOT ---
Date of Service Date of service: 11/22/21 Time of Service: 16:33 Assessment and Plan Assessment and plan (1) Chronic recurrent multifocal osteomyelitis: Status: Chronic Assessment and plan: patient has two ischial open ulcers w/ chronic osteomyelitis for which he has been treated in the past w/ recurrent antibiotics. At present the wounds are slowly healing but willl probably never totally close without surgery. He is followed by [facility] wound clinic and locally by our [facility] wound care nurses. (2) Major depressive disorder: Status: Chronic Assessment and plan: currently on Duloxetine which was recently increased to 60 mg daily. He has a psychiatrist with whom he follows although Dr. Alfaro has seen him in the past for tele-psych visit Qualifiers: Major depression recurrence: single episode Active/Remission status: currently active Major depression episode severity: moderate Qualified Code(s): F32.1 - Major depressive disorder, single episode, moderate (3) Quadriplegia: Status: Chronic (4) Palliative care encounter: Status: Acute Assessment and plan: Cont ongoing discussion with palliative team. (5) Osteomyelitis of right foot: Status: Acute Assessment and plan: s/p resection of fifth MPJ of right foot on 11/11/21. Initially on ceftriaxone for 3 days; then lost IV site and changed to po bactrim and cefpodoxime. A midline was placed on 11/18/21 and Rocephin restarted and continued on bactrim. However, the midline was tenuous and then started to pull out gradually and then was leaky. The midline was stopped. Cefpodoxime and bactrim. Subjective Subjective Patient reports: no new complaints and afebrile; denies nausea, vomiting and shortness of breath Exam Const General: cooperative and no acute distress [facility] Head: atraumatic Ears: hearing grossly normal bilaterally Eyes General: appearance normal, both eyes and all related structures Sclera: sclerae normal Resp Effort & Inspection: normal respiratory effort Auscultation: clear to auscultation bilaterally Cardio Rate: regular rate Rhythm: regular rhythm Heart Sounds: S1 normal and S2 normal GI Inspection: other (ostomy with liquid brown stool in bag. ) Palpation: soft and nontender Skin Rashes: no rashes Wounds: wounds noted (see wound care and nursing notes. ) Extrem General: no pedal edema and no calf tenderness Psych Speech and Movement: speech clear Affect: blunted Objective Last Vital Signs Temp 36.5 C 11/22/21 15:10 Pulse 69 11/22/21 15:10 Resp 18 11/22/21 15:10 BP 130/76 11/22/21 15:10 Pulse Ox 96 11/22/21 15:10
[2021-11-22] MEDS: LORazepam 1 MG TAB PO (19:42)
[2021-11-22] MEDS: Cefpodoxime 200 MG TAB 400 MG PO (19:42)
[2021-11-22] MEDS: Mirtazapine 15 MG TAB 30 MG PO (19:44)
[2021-11-22] MEDS: Bacitracin 1 PACKET TP (19:45)
[2021-11-23] MEDS: DULoxetine 30 MG CAP 60 MG PO (09:49)
[2021-11-23] MEDS: Polyethylene Glycol 3350 17 GM PACKET PO (09:49)
[2021-11-23] MEDS: Protein Nutritional Supplement 16 GM 1 OUNCE PACKET PO ×3 (09:49→20:10)
[2021-11-23] MEDS: Senna TAB 2 TAB PO ×2 (09:49→20:12)
[2021-11-23] MEDS: Magnesium Chloride 64 MG TABCR 128 MG PO ×2 (09:49→20:11)
[2021-11-23] MEDS: Cefpodoxime 200 MG TAB 400 MG PO ×2 (09:49→20:12)
[2021-11-23] MEDS: guaiFENesin 600 MG TABCR PO ×2 (09:49→20:11)
[2021-11-23] MEDS: diazePAM 2 MG TAB PO ×3 (09:50→20:11)
[2021-11-23] MEDS: Docusate Sodium 100 MG CAP PO ×3 (09:50→20:11)
[2021-11-23] MEDS: Sulfameth/Trimeth DS TAB 2 TAB PO ×2 (09:50→20:12)
[2021-11-23] MEDS: Pantoprazole 40 MG TABCR PO (09:50)
[2021-11-23] MEDS: Lactobacillus Acidophilus CAP 1 CAP PO ×3 (09:50→20:11)
[2021-11-23] MEDS: Cholecalciferol (Vitamin D3) 1,000 UNIT TAB 1000 UNITS PO (09:50)
[2021-11-23] MEDS: amLODIPine 10 MG TAB PO (09:50)
[2021-11-23] MEDS: Ascorbic Acid 500 MG TAB PO ×2 (09:50→20:11)
[2021-11-23] MEDS: Bacitracin 1 PACKET TP ×3 (09:50→20:10)
[2021-11-23] MEDS: Multivitamin TAB 1 TAB PO (09:51)
[2021-11-23 11:15] VITALS: BP 106/71; PULSE 71; RESP 18; TEMP 36.3; O2SAT 97
[2021-11-23] MEDS: Enoxaparin 40 MG/0.4 ML SYR SC (14:31)
[2021-11-23] MEDS: Mirtazapine 15 MG TAB 30 MG PO (20:10)
[2021-11-23] MEDS: LORazepam 1 MG TAB PO (20:11)
[2021-11-24] VITALS (8 sets, daily range): BP systolic 73–107; BP diastolic 49–75; PULSE 71–83; RESP 12–18; TEMP 36–36.5; O2SAT 91–99
--- NOTE | 2021-11-24 | DI.CT_ITS ---
Exam(s) CT CERVICAL SPINE WO EXAM: CT CERVICAL SPINE WO CLINICAL HISTORY: h/o C-spine fx, worsening neck discomfort, dizzy. TECHNIQUE: Imaging Protocol: Axial computed tomography images with coronal and sagittal reformatted images were created and reviewed COMPARISON: CT CT HEAD CERVICAL SPINE WO from 10/26/[address] BRAIN NECK CTA from 06/24/2021 FINDINGS: The examination is limited due to patient motion artifact. Bones: No fracture or dislocations are seen. There again seen posterior spinal fusion rods extending from the facets at C4 through T2. There is mild reversal of the normal cervical lordosis which is un changed and centered at the C4-C5 level. Multilevel degenerative changes are present throughout the cervical spine which appears stable. There is prominence of the osteophyte disc complex at C3-C4. Soft Tissues: The soft tissues of the neck are unremarkable. The lung apices are clear. IMPRESSION: 1. Stable postsurgical changes in the cervical spine. 2. No acute fracture or subluxation is identified in the cervical spine. 3. Multilevel degenerative changes in the cervical spine most marked at the C3-C4 level. RADIATION DOSE DELIVERED: 654.47mGy.cm Total DLP 654.47mGy.cm Total DLP DATA REPOSITORY: All CT scans at this facility are submitted to the National Radiology Data Registry (NRDR) Dose Index Registry (DIR) with the [employer] (A[employer]). RADIATION OPTIMIZATION: All CT scans at this facility use at least one of these dose optimization te chniques: automated exposure control; mA and/or kV adjustment per patient size (includes targeted exa ms where dose is matched to clinical indication); or iterative reconstruction.
[2021-11-24] MEDS: Acetaminophen 325 MG TAB 650 MG PO ×2 (03:11→08:50)
[2021-11-24] MEDS: amLODIPine 10 MG TAB PO (09:44)
[2021-11-24] MEDS: Cefpodoxime 200 MG TAB 400 MG PO (09:44)
[2021-11-24] MEDS: Ascorbic Acid 500 MG TAB PO ×2 (09:44→19:43)
[2021-11-24] MEDS: diazePAM 2 MG TAB PO ×3 (09:44→19:42)
[2021-11-24] MEDS: Cholecalciferol (Vitamin D3) 1,000 UNIT TAB 1000 UNITS PO (09:44)
[2021-11-24] MEDS: DULoxetine 30 MG CAP 60 MG PO (09:45)
[2021-11-24] MEDS: Lactobacillus Acidophilus CAP 1 CAP PO ×3 (09:45→19:43)
[2021-11-24] MEDS: guaiFENesin 600 MG TABCR PO ×2 (09:45→19:41)
[2021-11-24] MEDS: Pantoprazole 40 MG TABCR PO (09:45)
[2021-11-24] MEDS: Docusate Sodium 100 MG CAP PO ×3 (09:45→19:41)
[2021-11-24] MEDS: Multivitamin TAB 1 TAB PO (09:45)
[2021-11-24] MEDS: Magnesium Chloride 64 MG TABCR 128 MG PO ×2 (09:45→19:42)
[2021-11-24] MEDS: Polyethylene Glycol 3350 17 GM PACKET PO (09:46)
[2021-11-24] MEDS: Senna TAB 2 TAB PO ×2 (09:46→19:42)
[2021-11-24] MEDS: Protein Nutritional Supplement 16 GM 1 OUNCE PACKET PO ×3 (09:46→19:41)
[2021-11-24] MEDS: Sulfameth/Trimeth DS TAB 2 TAB PO ×2 (09:46→19:42)
[2021-11-24 09:55] LABS: Bilirubin Negative (Negative); Blood Large (Negative); Clarity Cloudy (Clear); Glucose Negative (Negative); Ketones Negative (Negative); Leukocyte Esterase Small (Negative); Nitrite Negative (Negative); Specific Gravity >= 1.030 (1.005-1.025); Urobilinogen 0.2 EU/dL (Up TO 0.2)
[2021-11-24 10:09] LABS: Crystals Negative HPF (Negative); Mucus Negative (Negative)
[2021-11-24 10:12] LABS: RBC 20-50 HPF (0-2)
[2021-11-24 10:13] LABS: Bacteria Few HPF (Negative); Epithelial Cells Negative HPF (Negative)
[2021-11-24 10:14] LABS: C & S Indicated? C&S Done As Ordered
--- NOTE | 2021-11-24 10:42 | PGE_ITS ---
Date of Service Date of service: 11/24/21 Time of Service: 10:42 Assessment and Plan Assessment and plan (1) Near syncope: Status: Acute (2) Hypotension: Status: Acute (3) Neck pain: Status: Acute (4) Suprapubic catheter dysfunction: Status: Acute Assessment and plan: DDx: UTI, early septic shock, vagal reaction due to neck pain, autonomic dysregulation, destabilization of c-spine. - The patient is firmly refusing placement of an IV, IVF, IV antibiotics. - Continue PO abx (cefpodoxime, bactrim) empirically. - obtain blood work, including blood cultures. - Obtain CT c-spine. I am very concerned that, without IVF and IV abx, Favio might get worse. He understands that and insists on his decision, even with the risk of . Subjective Subjective Interval history since last seen: I was asked to evaluate the patient by nursing. Favio reported feeling dizzy/seeing spots after being repositioned this morning. He noted that his neck was aching more after the repositioning as well. Manual BP now was 88/50. Earlier today, there was a significant amount of leakage of urine around his suprapubic catheter site, and his suprapubic catheter was exchanged. I discussed with Favio that my recommendations now would be to get a peripheral IV, start IVF and empiric IV antibiotics for I suspect is a UTI, and to obtain a CT scan of the c-spine. Favio firmly refused getting an IV verbalizing that, even if it meant that an untreated infection would lead to his , he is ok with . He agrees to getting a CT of his c-spine. He promises to drink more water today. He is in agreement with continuing oral antibiotics (cefpodoxime, bactrim). Exam Narrative Exam Narrative: General: Middle-aged male who is eating an omelet with good appetite, appears at his baseline mental status and has preserved ROM of neck/UEs from his baseline. HEENT: EOMI, MMM Lungs: nonlabored breathing Abdomen: nondistended Extremities: able to move BUEs. Objective Last Vital Signs Temp 36.3 C L 11/23/21 11:15 Pulse 71 11/23/21 11:15 Resp 18 11/23/21 11:15 BP 106/71 11/23/21 11:15 Pulse Ox 97 11/23/21 11:15 Laboratory Results - last 24 hr 11/24/21 09:40 Urine Color Yellow Urine Clarity Cloudy Urine pH 6.0 Ur Specific [place] >= 1.030 H Urine Protein >=300 H Urine Ketones Negative Urine Blood Large H Urine Nitrite Negative Urine Bilirubin Negative Urine Urobilinogen 0.2 Ur Leukocyte Esterase Small H Urine RBC 20-50 H Urine WBC 10-20 H Ur Epithelial Cells Negative Urine Crystals Negative Urine Bacteria Few Urine Mucus Negative Ur Culture Indicated? C&S Done As Ordered Urine Glucose Negative
--- NOTE | 2021-11-24 11:29 | DI.VRAD_ITS ---
PROCEDURE INFORMATION: Exam: CT Cervical Spine Without Contrast Exam date and time: 11/24/2021 10:42 AM Age: 56 years old Clinical indication: Other: H/o c-spine FX, worsening neck discomfort, dizzy; Prior surgery; Surgery date: 6+ months; Surgery type: Neck fission TECHNIQUE: Imaging protocol: Computed tomography images of the cervical spine without contrast. Radiation optimization: All CT scans at this facility use at least one of these dose optimization techniques: automated exposure control; mA and/or kV adjustment per patient size (includes targeted exams where dose is matched to clinical indication); or iterative reconstruction. COMPARISON: CT HEAD CERVICAL SPINE WO 10/26/2020 8:45 PM FINDINGS: Bones/joints: Posterior spinal fixation hardware extending from C4 to T2. Screws noted at C4, C5, T1 and T2, and appear unremarkable. Partial dystrophic osseous fusion along the posterior margins of the fixated vertebral bodies. The cervical spine maintains a normal lordotic curvature. No spondylolisthesis, which is significantly improved compared to prior exam. The vertebral bodies maintain normal height. No fracture identified. Discs/Spinal canal/Neural foramina: Mild multilevel loss of intervertebral disc height with minimal endplate degenerative changes. Multilevel uncovertebral degenerative changes. Broad-based posterior disc bulge/osteophyte complex at C3-4. Lungs: The visualized lung apices are normal. Soft tissues: No prevertebral soft tissue swelling identified. IMPRESSION: 1. Posterior cervical spinal fixation hardware appears intact. 2. No acute fracture or traumatic malalignment identified within the cervical spine. Dictated and Authenticated by: Omer Ty MD. Ordering:ELA Newton MD
[2021-11-24 12:22] LABS: Abs Immature Grans 0.04 10^3/uL (0.0-0.06); Absolute Basophil Count 0.04 10^3/uL (0.0-0.2); Absolute Lymphocyte Count 1.66 10^3/uL (1.2-3.4); Absolute Monocyte Count 0.55 10^3/uL (0.1-0.8); Absolute Neutrophil Count 7.19 10^3/uL (1.2-6.7); Basophils % 0.4; Eosinophils % 2.1; HCT 44.3 % (40.0-50.0); HGB 14.5 g/dL (13.5-17.5); Immature Grans % 0.4; Lymphocytes % 17.1; MCH 28.7 pg (27.0-33.0); MCHC 32.7 % (32.0-36.0); MCV 87.5 fL (80-95); MPV 10.6 fL (8.0-11.0); Monocytes % 5.7; Neutrophils % 74.3; Nucleated RBC 0 %; Platelet Count 222 10^3/uL (130-400); RBC 5.06 10^6/uL (4.36-5.78); RDW 13.6 % (11.8-14.1); RDW-SD 43.5 fL; WBC 9.68 10^3/uL (4.4-10.8)
[2021-11-24 12:32] LABS: Anion Gap 11.9 mmol/L (3-11); BUN 28 mg/dL (7-18); C-Reactive Protein 1.65 mg/dL (0.0-0.3); CO2 23.1 mmol/L (21.0-32.0); Calcium 9.3 mg/dL (8.5-10.1); Chloride 103 mmol/L (98-107); Glucose 112 mg/dL (74-106); Magnesium 1.7 mg/dL (1.8-2.4); Potassium 4.4 mmol/L (3.5-5.1); Sodium 138 mmol/L (136-145)
[2021-11-24 13:16] LABS: Procalcitonin < 0.1 ng/mL
--- NOTE | 2021-11-24 14:00 | RT.EKG_ITS ---
APPROVED REPORT Exam: Resting ECG Reason for Exam: Dizziness Patient Location: I HR:70 bpm ECG Measurements Heart Rate 70 AXIS GA 160 P 70 QRSd 113 QRS 99 QT 392 T 79 QTc 425 Conclusion Sinus rhythm...normal P axis, V-rate 60- 99 IRBBB and LPFB...RAD, QRSd>120, term axis(90,270) ST elev, probable normal early repol pattern...ST elevation, age<55
[2021-11-24] MEDS: Enoxaparin 40 MG/0.4 ML SYR SC (14:24)
[2021-11-24] MEDS: cefTRIAXone 2 GM VIAL IM (14:47)
[2021-11-24] MEDS: Lidocaine 1% Multi-Dose 20 ML VIAL 4.2 ML IJ (14:48)
[2021-11-24] MEDS: Fosfomycin Tromethamine 3 GM PACKET PO (17:49)
[2021-11-24] MEDS: Mirtazapine 15 MG TAB 30 MG PO (19:41)
[2021-11-24] MEDS: Bacitracin 1 PACKET TP (19:42)
[2021-11-24] MEDS: LORazepam 1 MG TAB PO (19:42)
--- NOTE | 2021-11-25 07:55 | PCPN_ITS ---
Date of service: 11/25/21 Time of Service: 07:56 Assessment and Plan Assessment and plan (1) Hypotension: Status: Acute (2) Neck pain: Status: Acute (3) Osteomyelitis of right foot: Status: Acute (4) Quadriplegia: Status: Chronic (5) Palliative care encounter: Status: Acute Assessment and plan: Episode of hypotension?his amlodipine is presently on hold. This is not unexpected considering his spinal cord problems Recent increase in neck pain?cervical CT does show advanced changes Osteomyelitis of his foot?he is presently getting ceftriaxone IM and Bactrim. He hates having an IV and because of how it irritates his arm which is the only useful extremity in his body His mood is considerably better today. Hopefully this will work out for him to go to Cary's home in [place]. We did work for quite some time to get his credit card loaded onto his computer. I am not certain why it was not working. I myself put the numbers in so I know that the numbers are accurate and just not certain if the card was what needed to be used to make purchases for [employer] and [employer] etc. hopefully someone else will be able to get this working for him He still has sutures in his foot. Its been almost 2 weeks since surgery. He states that they are working on finding out when the sutures can be removed. This is important to follow-up on. I understand that Dr. Mckeon is out of town. Subjective Subjective Interval history since last seen: Update on placement: P: Favio will likely be transferred to an [facility] home once his IVAB course is completed. There is a home in [facility] with a provider who is considering Favio as a client. Her name is Cary and she works with [facility]. There is a meeting scheduled in Favio's room on Thursday where Stacy Waggoner and one of her colleagues from [facility] will set up a face time meeting with Cary to exchange information and determine if the match seems suitable to both parties. [facility] will c ontinue to support Favio and assess for ongoing discharge planning needs. Per chart Favio is refusing IV antibiotics. He was asleep when I came this AM, I will return later today. Favio states that he was having some neck pain recently and did have a CT scan of his cervical spine. Overall he is quite happy and excited because he may be going to live in [place] at a community long term. He has met with Cary on Facebook and she toward him around her home. He feels that he has some connections with Cary through his friend Nevaeh Exam Narrative Exam Narrative: Favio is sitting in bed, he is smiling and energetic. Resp Effort & Inspection: normal respiratory effort and able to speak in complete sentences Cardio Rate: regular rate Psych Appearance: grossly normal Speech and Movement: speech clear Affect: normal affect (happy) Attitude: cooperative Thought Process: normal Thought Content: normal Objective Laboratory Tests 11/14/21 11/24/21 11/24/21 10:25 11:50 11:50 WBC 9.68 Hct 44.3 BUN 28 H C-Reactive Protein 3.[address] Cervical INDINGS: The examination is limited due to patient motion artifact. Bones: No fracture or dislocations are seen. There again seen posterior spinal fusion rods extending from the facets at C4 through T2. There is mild reversal of the normal cervical lordosis which is unchanged and centered at the C4-C5 level. Multilevel degenerative changes are present throughout the cervical spine which appears stable. There is prominence of the osteophyte disc complex at C3-C4. Soft Tissues: The soft tissues of the neck are unremarkable. The lung apices are clear. IMPRESSION: 1. Stable postsurgical changes in the cervical spine. 2. No acute fracture or subluxation is identified in the cervical spine. 3. Multilevel degenerative changes in the cervical spine most marked at the C3- C4 level. Last Vital Signs Temp 97.7 F 11/24/21 16:57 Pulse 83 11/24/21 16:57 Resp 12 11/24/21 16:57 BP 107/75 11/24/21 16:57 Pulse Ox 98 11/24/21 16:57 Laboratory Results - last 24 hr 11/24/21 11/24/21 11/24/21 09:40 11:50 11:50 WBC RBC Hgb Hct MCV MCH MCHC RDW Plt Count MPV Immature Gran % Neutrophils % Lymphocytes % Monocytes % Eosinophils % Basophils % Nucleated RBC % Absolute Neutrophils Absolute Lymphocytes Absolute Monocytes Absolute Eosinophils Absolute Basophils Sodium 138 Potassium 4.4 Chloride 103 Carbon Dioxide 23.1 Anion Gap 11.9 H BUN 28 H Creatinine 1.0 Estimated GFR/1.73 m2 >= 60.00 Glucose 112 H Calcium 9.3 Magnesium 1.7 L C-Reactive Protein 1.65 H Procalcitonin < 0.1 Urine Color Yellow Urine Clarity Cloudy Urine pH 6.0 Ur Specific [place] >= 1.030 H Urine Protein >=300 H Urine Ketones Negative Urine Blood Large H Urine Nitrite Negative Urine Bilirubin Negative Urine Urobilinogen 0.2 Ur Leukocyte Esterase Small H Urine RBC 20-50 H Urine WBC 10-20 H Ur Epithelial Cells Negative Urine Crystals Negative Urine Bacteria Few Urine Mucus Negative Ur Culture Indicated? C&S Done As Ordered Urine Glucose Negative 11/24/21 11:50 WBC 9.68 RBC 5.06 Hgb 14.5 Hct 44.3 MCV 87.5 MCH 28.7 MCHC 32.7 RDW 13.6 Plt Count 222 MPV 10.6 Immature Gran % 0.4 Neutrophils % 74.3 Lymphocytes % 17.1 Monocytes % 5.7 Eosinophils % 2.1 Basophils % 0.4 Nucleated RBC % 0 Absolute Neutrophils 7.19 H Absolute Lymphocytes 1.66 Absolute Monocytes 0.55 Absolute Eosinophils 0.20 Absolute Basophils 0.04 Sodium Potassium Chloride Carbon Dioxide Anion Gap BUN Creatinine Estimated GFR/1.73 m2 Glucose Calcium Magnesium C-Reactive Protein Procalcitonin Urine Color Urine Clarity Urine pH Ur Specific [place] Urine Protein Urine Ketones Urine Blood Urine Nitrite Urine Bilirubin Urine Urobilinogen Ur Leukocyte Esterase Urine RBC Urine WBC Ur Epithelial Cells Urine Crystals Urine Bacteria Urine Mucus Ur Culture Indicated? Urine Glucose
[2021-11-25] MEDS: Ascorbic Acid 500 MG TAB PO ×2 (08:04→20:23)
[2021-11-25] MEDS: diazePAM 2 MG TAB PO ×3 (08:04→20:23)
[2021-11-25] MEDS: Cholecalciferol (Vitamin D3) 1,000 UNIT TAB 1000 UNITS PO (08:04)
[2021-11-25] MEDS: Lactobacillus Acidophilus CAP 1 CAP PO ×3 (08:05→20:23)
[2021-11-25] MEDS: guaiFENesin 600 MG TABCR PO ×2 (08:05→20:22)
[2021-11-25] MEDS: Docusate Sodium 100 MG CAP PO ×3 (08:05→20:23)
[2021-11-25] MEDS: Magnesium Chloride 64 MG TABCR 128 MG PO ×2 (08:05→20:23)
[2021-11-25] MEDS: DULoxetine 30 MG CAP 60 MG PO (08:05)
[2021-11-25] MEDS: Multivitamin TAB 1 TAB PO (08:06)
[2021-11-25] MEDS: Sulfameth/Trimeth DS TAB 2 TAB PO ×2 (08:06→20:23)
[2021-11-25] MEDS: Protein Nutritional Supplement 16 GM 1 OUNCE PACKET PO ×3 (08:06→20:22)
[2021-11-25] MEDS: Pantoprazole 40 MG TABCR PO (08:06)
[2021-11-25] MEDS: Senna TAB 2 TAB PO ×2 (08:06→20:23)
[2021-11-25] MEDS: Polyethylene Glycol 3350 17 GM PACKET PO (08:06)
--- NOTE | 2021-11-25 10:21 | NUR.NOTE ---
Nursing Note: dressings were changed today by this sports writer. Sutures are still noted to be in place on the right lateral foot. CC was notified and said she would let the provider know. dressing was still changed by orders.
[2021-11-25 10:39] VITALS: BP 87/63; PULSE 72; RESP 18; TEMP 36.8; O2SAT 96
[2021-11-25] MEDS: Bacitracin 1 PACKET TP (14:17)
[2021-11-25] MEDS: Enoxaparin 40 MG/0.4 ML SYR SC (14:18)
[2021-11-25] MEDS: Lidocaine 1% Multi-Dose 20 ML VIAL 4.2 ML IJ (14:38)
[2021-11-25] MEDS: cefTRIAXone 2 GM VIAL IM (14:38)
[2021-11-25] MEDS: Mirtazapine 15 MG TAB 30 MG PO (20:22)
[2021-11-25] MEDS: LORazepam 1 MG TAB PO (20:23)
[2021-11-26] MEDS: Polyethylene Glycol 3350 17 GM PACKET PO (10:07)
[2021-11-26] MEDS: DULoxetine 30 MG CAP 60 MG PO (10:07)
[2021-11-26] MEDS: Protein Nutritional Supplement 16 GM 1 OUNCE PACKET PO ×3 (10:07→20:24)
[2021-11-26] MEDS: Magnesium Chloride 64 MG TABCR 128 MG PO ×2 (10:07→20:24)
[2021-11-26] MEDS: Multivitamin TAB 1 TAB PO (10:08)
[2021-11-26] MEDS: Cholecalciferol (Vitamin D3) 1,000 UNIT TAB 1000 UNITS PO (10:08)
[2021-11-26] MEDS: Sulfameth/Trimeth DS TAB 2 TAB PO ×2 (10:08→20:25)
[2021-11-26] MEDS: guaiFENesin 600 MG TABCR PO ×2 (10:08→20:24)
[2021-11-26] MEDS: Senna TAB 2 TAB PO ×2 (10:08→20:24)
[2021-11-26] MEDS: diazePAM 2 MG TAB PO ×3 (10:08→20:24)
[2021-11-26] MEDS: Docusate Sodium 100 MG CAP PO ×3 (10:08→20:24)
[2021-11-26] MEDS: Pantoprazole 40 MG TABCR PO (10:08)
[2021-11-26] MEDS: Ascorbic Acid 500 MG TAB PO ×2 (10:09→20:25)
[2021-11-26] MEDS: Lactobacillus Acidophilus CAP 1 CAP PO ×3 (10:09→20:24)
[2021-11-26] MEDS: Bacitracin 1 PACKET TP (10:09)
[2021-11-26 11:41] VITALS: BP 131/88; PULSE 91; RESP 14; TEMP 36.7; O2SAT 98
[2021-11-26] MEDS: Fluconazole 100 MG TAB 200 MG PO (13:00)
[2021-11-26] MEDS: Mirabegron 25 MG TABCR PO (13:01)
--- NOTE | 2021-11-26 15:49 | W.PM.PROGNOT ---
Date of Service Date of service: 11/26/21 Time of Service: 15:49 Subjective Subjective Interval history since last seen: Favio agrees to have an infusaport placed tomorrow. NPO after midnight. Enoxaparin is held. Objective Last Vital Signs Temp 36.7 C 11/26/21 11:41 Pulse 91 H 11/26/21 11:41 Resp 14 11/26/21 11:41 BP 131/88 11/26/21 11:41 Pulse Ox 98 11/26/21 11:41
[2021-11-26] MEDS: Lidocaine 1% Multi-Dose 20 ML VIAL 4.2 ML IJ (16:10)
[2021-11-26] MEDS: cefTRIAXone 2 GM VIAL IM (16:10)
[2021-11-26 16:13] VITALS: BP 157/92; PULSE 77; RESP 18; TEMP 36.1; O2SAT 97
[2021-11-26] MEDS: Mirtazapine 15 MG TAB 30 MG PO (20:24)
[2021-11-26] MEDS: LORazepam 1 MG TAB PO (20:24)
--- NOTE | 2021-11-27 | DI.RAD_ITS ---
Exam(s) XR PORTABLE CHEST AP POST LINE EXAM: XR PORTABLE CHEST AP POST LINE CLINICAL HISTORY: left subclavian port placement. TECHNIQUE: 2D digital imaging was performed. COMPARISON: CR,XR XR PORTABLE CHEST AP from 09/16/2021 FINDINGS: Heart size is upper normal. The mediastinum is not widened. Distal tip of left subclavian Port-A-Cath is in the lower SVC, in satisfactory position. There is no pneumothorax. No mediastinal widening. Lungs are clear. Left arm projected over the lower left chest. IMPRESSION: No acute pulmonary findings on this single AP portable view of the chest. Port-A-Cath in satisfactory position. There is no pneumothorax. DATA REPOSITORY: RADIATION DOSE DELIVERED: All CT scans at this facility use at least one of these dose optimization techniques: automated exposure control; mA and/or kV adjustment per patient size (includes targeted e xams where dose is matched to clinical indication); or iterative reconstruction.
[2021-11-27] MEDS: Polyethylene Glycol 3350 17 GM PACKET PO (09:26)
[2021-11-27] MEDS: Protein Nutritional Supplement 16 GM 1 OUNCE PACKET PO ×3 (09:26→20:12)
[2021-11-27] MEDS: Sulfameth/Trimeth DS TAB 2 TAB PO (09:27)
[2021-11-27] MEDS: guaiFENesin 600 MG TABCR PO ×2 (09:27→20:13)
[2021-11-27] MEDS: Magnesium Chloride 64 MG TABCR 128 MG PO ×2 (09:27→20:12)
[2021-11-27] MEDS: Ascorbic Acid 500 MG TAB PO ×2 (09:27→20:13)
[2021-11-27] MEDS: Multivitamin TAB 1 TAB PO (09:27)
[2021-11-27] MEDS: Docusate Sodium 100 MG CAP PO ×3 (09:27→20:13)
[2021-11-27] MEDS: Cholecalciferol (Vitamin D3) 1,000 UNIT TAB 1000 UNITS PO (09:27)
[2021-11-27] MEDS: Mirabegron 25 MG TABCR PO (09:27)
[2021-11-27] MEDS: Senna TAB 2 TAB PO ×2 (09:27→20:12)
[2021-11-27] MEDS: DULoxetine 30 MG CAP 60 MG PO (09:27)
[2021-11-27] MEDS: Pantoprazole 40 MG TABCR PO (09:28)
[2021-11-27] MEDS: Lactobacillus Acidophilus CAP 1 CAP PO ×3 (09:28→20:12)
[2021-11-27] MEDS: diazePAM 2 MG TAB PO ×3 (09:28→20:13)
[2021-11-27 11:06] VITALS: BP 102/62; PULSE 81; RESP 16; TEMP 36.2; O2SAT 96
[2021-11-27 12:25] LABS: Source Nasal/Nares
--- NOTE | 2021-11-27 12:26 | W.PM.PROGNOT ---
Date of Service Date of service: 11/27/21 Time of Service: 12:26 Subjective Subjective Patient reports: no new complaints Exam Narrative Exam Narrative: 16 days s/p resection right 5th MPJ with osteomyelitis confirmed by pathology. The incision has closed, there is no drainage, erythema or cellulitss noted. Impressions: 16 days s/p debridement wound right 5th mpj with resection of the joint. I removed all suture. Mepilex dressing applied. Plan: a 6 week course of antibiotics is indicated. Favio has consented to a port that is scheduled for this afternoon. I will discuss the case with the hospitalist for antibiotic of choice. will follow. Objective Last Vital Signs Temp 36.2 C L 11/27/21 11:06 Pulse 81 11/27/21 11:06 Resp 16 11/27/21 11:06 BP 102/62 11/27/21 11:06 Pulse Ox 96 11/27/21 11:06 Laboratory Results - last 24 hr 11/27/21 12:15 COVID-19 Source Nasal/Nares
[2021-11-27 13:09] LABS: COVID-19 PCR Negative (Negative)
--- NOTE | 2021-11-27 15:15 | CHAPLAIN ---
Favio seems excited about the possibility of moving into a family longterm in [facility]. He's taken a virtual tour of the home and met on line with woman who runs the home. The idea of not being in the hospital much longer makes Favio happy. He is going to have somekind of a port put in today. He continues to have visitors, and Dr. Zhu from the Palliative Care team visits often.
[2021-11-27 16:23] VITALS: BP 122/77; PULSE 75; RESP 17; TEMP 36.4; O2SAT 96
[2021-11-27] MEDS: cefTRIAXone 2 GM/50 ML BAG IVPB (17:57)
[2021-11-27] MEDS: Normal Saline Flush 10 ML SYR IVP (17:57)
[2021-11-27] MEDS: VANCOMYCIN/WATER (PEG) 2 GM/400 ML BAG IVPB (19:03)
[2021-11-27] MEDS: LORazepam 1 MG TAB PO (20:13)
[2021-11-27] MEDS: Mirtazapine 15 MG TAB 30 MG PO (20:13)
[2021-11-28] MEDS: Normal Saline Flush 10 ML SYR IVP ×2 (01:33→09:15)
[2021-11-28] MEDS: VANCOMYCIN/WATER (PEG) 1.25 GM/250 ML BAG IV ×3 (01:33→19:18)
[2021-11-28] MEDS: Protein Nutritional Supplement 16 GM 1 OUNCE PACKET PO ×3 (09:15→20:10)
[2021-11-28] MEDS: Polyethylene Glycol 3350 17 GM PACKET PO (09:15)
[2021-11-28] MEDS: Lactobacillus Acidophilus CAP 1 CAP PO ×3 (09:16→20:10)
[2021-11-28] MEDS: Senna TAB 2 TAB PO ×2 (09:16→20:10)
[2021-11-28] MEDS: Pantoprazole 40 MG TABCR PO (09:16)
[2021-11-28] MEDS: DULoxetine 30 MG CAP 60 MG PO (09:16)
[2021-11-28] MEDS: diazePAM 2 MG TAB PO ×3 (09:16→20:11)
[2021-11-28] MEDS: guaiFENesin 600 MG TABCR PO ×2 (09:16→20:10)
[2021-11-28] MEDS: Cholecalciferol (Vitamin D3) 1,000 UNIT TAB 1000 UNITS PO (09:16)
[2021-11-28] MEDS: Multivitamin TAB 1 TAB PO (09:16)
[2021-11-28] MEDS: Docusate Sodium 100 MG CAP PO ×3 (09:16→20:10)
[2021-11-28] MEDS: Mirabegron 25 MG TABCR PO (09:16)
[2021-11-28] MEDS: Magnesium Chloride 64 MG TABCR 128 MG PO ×2 (09:17→20:10)
[2021-11-28] MEDS: Ascorbic Acid 500 MG TAB PO ×2 (09:17→20:10)
[2021-11-28 11:14] VITALS: BP 96/64; PULSE 78; RESP 12; TEMP 36.3; O2SAT 95
--- NOTE | 2021-11-28 11:59 | UCONE_ITS ---
Assessment and Plan Assessment and plan (1) Suprapubic catheter dysfunction: Status: Acute Assessment and plan: With the larger lumen catheter and periodic hand irrigation, hopefully we will be able to keep his catheter flowing. If not, we may need a CT of the bladder to rule out residual bladder stone particles that might require cystoscopy to extract. History of Present Illness Narrative: This is a 56 year man who has a history of a neurogenic bladder due to a spinal injury. His initial urologic care was [place] [facility]. Initially, he had an indwelling catheter. At some point, he was switched to CIC. Finally, he had a suprapubic tube placed by Interventional Radiology at [facility]. Once he returned to our area, I was asked to change his initial SP tube so that the patient would not need to make a trip all the way down to [place]. Since that initial catheter change, his catheters have been changed by nursing staff. Recently, his catheters have been getting occluded quite easily. There appears to be white fluffy debris rather than stone particles when the catheter is changed. His current catheter is 16 Jordanian with a 10 cc balloon. He has no known history of kidney or bladder stones [facility] All Active Problems Suprapubic catheter dysfunction (Acute) Hypotension (Acute) Neck pain (Acute) Near syncope (Acute) Osteomyelitis of right foot (Acute) Paronychia of great toe (Acute) Decubitus skin ulcer (Acute) Insomnia (Acute) Constipation due to neurogenic bowel (Acute) DVT prophylaxis (Acute) Discharge planning issues (Acute) Chronic recurrent multifocal osteomyelitis (Chronic) Palliative care encounter (Acute) S/P colostomy (Chronic) Acute osteomyelitis of sacrum (Chronic) Major depressive disorder (Chronic) Neurogenic bladder (Chronic) Quadriplegia (Chronic) Medical History Acute embolism and thrombosis of deep vein of right lower extremity Anxiety disorder Aspiration into airway C. difficile colitis Constipation Decubitus ulcer of buttock, stage 4 Dislocation of C6/C7 cervical vertebrae DNR (do not resuscitate) DVT (deep venous thrombosis) DVT prophylaxis Encounter for wound care Fall down embankment Fusion of spine H/O deep venous thrombosis Hypokalemia Hypotension Ileus Iron deficiency anemia Large bowel obstruction Malnutrition following gastrointestinal surgery Neurogenic bowel Open wound of abdominal wall Palliative care patient Physician orders for life-sustaining treatment (POLST) form indicates patient wish for pv-tii-ifwkgebdoyb status Right arm pain Visit for wound check Social History Smoking/Tobacco Use Status: Never Smoking risk assessment performed?: Yes Alcohol Intake: former Drug use: Occasionally Substance use type: marijuana Do you feel safe at home: Yes Do you feel safe in your relationship?: Yes Exam Narrative Exam Narrative: He does not appears optic or toxic His vital signs are documented elsewhere There is no erythema surrounding the suprapubic tract Results Last Vital Signs Temp 36.3 C L 11/28/21 11:14 Pulse 78 11/28/21 11:14 Resp 12 11/28/21 11:14 BP 96/64 L 11/28/21 11:14 Pulse Ox 95 11/28/21 11:14 Labs Result diagrams: 11/24/21 11:50 11/24/21 11:50 Labs: Laboratory Results - last 24 hr 11/27/21 12:15 COVID-19 Source Nasal/Nares SARS-CoV-2 (PCR) Negative Change Bladder Catheter Text: He was seen at the bedside. His indwelling catheter balloon was deflated and the suprapubic catheter was removed. The suprapubic site was prepped with Betadine. Hydrophilic jelly was injected into the suprapubic site. An 18 Jordanian catheter was passed through the s uprapubic tract into the bladder. The catheter balloon was inflated with 10 cc of sterile water. I then hand irrigated the catheter with 500 cc of sterile water. No large stone or mucus particles were extracted. The catheter was hooked to gravity drainage. He tolerated the procedure well.
--- NOTE | 2021-11-28 12:20 | W.NUTRFU ---
Date of service: 11/28/21 Time of Service: 12:20 Nutrition Note NOTE: Favio is status quo nutritionally. Weight is stable and PO continues to be excellent. Will continue to follow. Time Spent in Nutritional Counseling and Treatment: 0
--- NOTE | 2021-11-28 12:36 | PDOC.CMACT ---
- If Service Date Differs Date of service: 11/28/21 Time of Service: 12:36 Care Management Activity Note S/O: Favio has been getting up in his motorized wheelchair and continues to engage with friends and family on his Ipad. His parents come to visit often and some of his friends and other relatives do as well. Favio would enjoy music and pet therapy if they become available. Due to his limited mobility, most items from the activity caret are not appropriate. CM was able to provide Favio with some art supplies such as a drawing pad, markers, and paint sticks with which to draw. These are items he expressed interest in. CM visits with Favio on a regular basis and staff have been spending extra time with him. A: Favio is a 56 year old man admitted on 09/01/21 with a UTI P: Favio has been accepted into an [facility] home in [place]. Meetings were held with the home care provider (Cary Ahumada) and she has accepted him as a client. Final paperwork with [facility] pending with transfer anticipated for next week. CM coordinating the ordering of medical equipment such as hospital bed and christa lift with [facility]. CM will continue to support Favio in his transition back to the community.
--- NOTE | 2021-11-28 12:40 | PDOC.CMPRO ---
- If Service Date Differs Date of service: 11/28/21 Time of Service: 12:40 Care Management Progress Note S/O: Favio was sitting up in bed when CM met with him. He remains in good spirits since learning that he will be able to go to an [facility] home in [place] soon. The home care provider's name is Cary Ahumada. Her adddress is [address] [place] [address]. . On Thursday he had a virtual meeting with Cary facilitated by Brook Waggoner and Trish Asif from [facility]. Favio and Cary connected well and both are agreeable to the placement. Final approval and paperwork with [facility] pending. It is hoped that he can be discharged in early December. Favio continues to require IVAB and a port was placed yesterday to facilitate this. A: Favio is a 56 year old man admitted on 09/01/21 with a UTI P: Favio will likely be transferred to an [facility] home and will complete his IVAB course there. There is a home in [facility] with a provider who has accepted Favio as a client. Final paperwork with and approval from the [facility] pending. Transfer anticipated within the next week to 10 days. CM coordinating the ordering of hospital bed and christa lift with [facility]. CM will continue to support Favio and assess for ongoing discharge planning needs.
[2021-11-28] MEDS: cefTRIAXone 2 GM/50 ML BAG IVPB (18:06)
[2021-11-28] MEDS: Mirtazapine 15 MG TAB 30 MG PO (20:10)
[2021-11-28] MEDS: LORazepam 1 MG TAB PO (20:11)
[2021-11-29] MEDS: VANCOMYCIN/WATER (PEG) 1.25 GM/250 ML BAG IV ×3 (01:58→21:01)
[2021-11-29] MEDS: Protein Nutritional Supplement 16 GM 1 OUNCE PACKET PO ×3 (09:24→20:58)
[2021-11-29] MEDS: Polyethylene Glycol 3350 17 GM PACKET PO (09:24)
[2021-11-29] MEDS: Ascorbic Acid 500 MG TAB PO ×2 (09:25→21:00)
[2021-11-29] MEDS: guaiFENesin 600 MG TABCR PO ×2 (09:25→20:59)
[2021-11-29] MEDS: Mirabegron 25 MG TABCR PO (09:25)
[2021-11-29] MEDS: Magnesium Chloride 64 MG TABCR 128 MG PO ×2 (09:25→20:59)
[2021-11-29] MEDS: Docusate Sodium 100 MG CAP PO ×3 (09:25→20:59)
[2021-11-29] MEDS: Senna TAB 2 TAB PO ×2 (09:25→20:59)
[2021-11-29] MEDS: Pantoprazole 40 MG TABCR PO (09:25)
[2021-11-29] MEDS: diazePAM 2 MG TAB PO ×3 (09:25→21:00)
[2021-11-29] MEDS: Lactobacillus Acidophilus CAP 1 CAP PO ×3 (09:25→21:00)
[2021-11-29] MEDS: Cholecalciferol (Vitamin D3) 1,000 UNIT TAB 1000 UNITS PO (09:25)
[2021-11-29] MEDS: Multivitamin TAB 1 TAB PO (09:25)
[2021-11-29] MEDS: DULoxetine 30 MG CAP 60 MG PO (09:25)
[2021-11-29 10:00] LABS: CREATININE 0.5 mg/dL (0.70-1.30)
[2021-11-29 10:09] LABS: Vancomycin, Trough 24.9 ug/mL (10.0-20.0)
[2021-11-29 10:45] VITALS: BP 120/84; PULSE 75; RESP 16; TEMP 36; O2SAT 97
[2021-11-29] MEDS: Normal Saline Flush 10 ML SYR IVP ×2 (17:27→20:58)
[2021-11-29] MEDS: cefTRIAXone 2 GM/50 ML BAG IVPB (17:27)
[2021-11-29] MEDS: LORazepam 1 MG TAB PO (21:00)
[2021-11-29] MEDS: Mirtazapine 15 MG TAB 30 MG PO (21:00)
[2021-11-30] MEDS: Polyethylene Glycol 3350 17 GM PACKET PO (10:05)
[2021-11-30] MEDS: VANCOMYCIN/WATER (PEG) 1.25 GM/250 ML BAG IV ×2 (10:05→18:05)
[2021-11-30] MEDS: Protein Nutritional Supplement 16 GM 1 OUNCE PACKET PO ×3 (10:05→21:14)
[2021-11-30] MEDS: Senna TAB 2 TAB PO ×2 (10:06→21:13)
[2021-11-30] MEDS: guaiFENesin 600 MG TABCR PO ×2 (10:06→21:13)
[2021-11-30] MEDS: DULoxetine 30 MG CAP 60 MG PO (10:06)
[2021-11-30] MEDS: Mirabegron 25 MG TABCR PO (10:06)
[2021-11-30] MEDS: Docusate Sodium 100 MG CAP PO ×3 (10:06→21:13)
[2021-11-30] MEDS: Magnesium Chloride 64 MG TABCR 128 MG PO ×2 (10:06→21:13)
[2021-11-30] MEDS: diazePAM 2 MG TAB PO ×3 (10:06→21:13)
[2021-11-30] MEDS: Pantoprazole 40 MG TABCR PO (10:06)
[2021-11-30] MEDS: Lactobacillus Acidophilus CAP 1 CAP PO ×3 (10:06→21:12)
[2021-11-30] MEDS: Multivitamin TAB 1 TAB PO (10:07)
[2021-11-30] MEDS: Ascorbic Acid 500 MG TAB PO ×2 (10:07→21:12)
[2021-11-30] MEDS: Cholecalciferol (Vitamin D3) 1,000 UNIT TAB 1000 UNITS PO (10:07)
[2021-11-30 11:17] VITALS: BP 116/75; PULSE 84; RESP 17; TEMP 36.1; O2SAT 97
[2021-11-30] MEDS: cefTRIAXone 2 GM/50 ML BAG IVPB (17:18)
[2021-11-30] MEDS: Mirtazapine 15 MG TAB 30 MG PO (21:13)
[2021-11-30] MEDS: LORazepam 1 MG TAB PO (21:13)
[2021-12-01] MEDS: VANCOMYCIN/WATER (PEG) 1.25 GM/250 ML BAG IV ×3 (04:26→23:02)
[2021-12-01] MEDS: Lactobacillus Acidophilus CAP 1 CAP PO ×3 (11:06→19:55)
[2021-12-01] MEDS: Ascorbic Acid 500 MG TAB PO ×2 (11:06→19:55)
[2021-12-01] MEDS: Pantoprazole 40 MG TABCR PO (11:06)
[2021-12-01] MEDS: Magnesium Chloride 64 MG TABCR 128 MG PO ×2 (11:06→19:56)
[2021-12-01] MEDS: Cholecalciferol (Vitamin D3) 1,000 UNIT TAB 1000 UNITS PO (11:07)
[2021-12-01] MEDS: Multivitamin TAB 1 TAB PO (11:07)
[2021-12-01] MEDS: Docusate Sodium 100 MG CAP PO ×3 (11:07→19:57)
[2021-12-01] MEDS: diazePAM 2 MG TAB PO ×3 (11:07→19:56)
[2021-12-01] MEDS: guaiFENesin 600 MG TABCR PO ×2 (11:07→19:56)
[2021-12-01] MEDS: Mirabegron 25 MG TABCR PO (11:07)
[2021-12-01] MEDS: DULoxetine 30 MG CAP 60 MG PO (11:07)
[2021-12-01] MEDS: Polyethylene Glycol 3350 17 GM PACKET PO (11:08)
[2021-12-01] MEDS: Protein Nutritional Supplement 16 GM 1 OUNCE PACKET PO ×3 (11:08→19:57)
[2021-12-01] MEDS: Senna TAB 2 TAB PO ×2 (11:11→19:55)
[2021-12-01 11:52] VITALS: BP 100/74; PULSE 80; RESP 18; TEMP 35.8; O2SAT 96
[2021-12-01 13:33] LABS: Vancomycin, Trough 19.2 ug/mL (10.0-20.0)
[2021-12-01] MEDS: cefTRIAXone 2 GM/50 ML BAG IVPB (18:39)
[2021-12-01] MEDS: LORazepam 1 MG TAB PO (19:57)
[2021-12-01] MEDS: Mirtazapine 15 MG TAB 30 MG PO (19:57)
[2021-12-01] MEDS: Normal Saline Flush 10 ML SYR IVP (23:03)
--- NOTE | 2021-12-02 08:37 | PCPN_ITS ---
Date of service: 12/02/21 Time of Service: 08:37 Assessment and Plan Assessment and plan (1) Suprapubic catheter dysfunction: Status: Acute Assessment and plan: Seen by urology and functioning well now (2) Osteomyelitis of right foot: Status: Acute Assessment and plan: On antibiotics with port placed recently (3) Insomnia: Status: Acute Assessment and plan: Stable Qualifiers: Insomnia type: psychophysiologic Qualified Code(s): F51.04 - Psychophysiologic insomnia (4) Major depressive disorder: Status: Chronic Assessment and plan: Favio is very enthusiastic about the upcoming move. Hopefully this will be soon. I did have [employer] come and help Favio with his iPad so that he would be able to access different movies. Qualifiers: Major depression recurrence: single episode Active/Remission status: currently active Major depression episode severity: moderate Qualified Code(s): F32.1 - Major depressive disorder, single episode, moderate Subjective Subjective Interval history since last seen: Favio is feeling optimistic about the future. He is anxious to be moving out of the hospital and into a home care situation. The date of which is uncertain at this time Due to his osteomyelitis in his foot he did have an Gxrine-s-Wepm placed at the end of last week. The plan is to use it tonight. Dr. Mckeon did come in on the 11/27 and changed his bandage. Per Favio Dr. Mckeon felt that things were healing well He did see urology because of his clogged catheter. Urology was able to unclog the catheter and hopefully it will stay that way. Exam Narrative Exam Narrative: Favio is sitting in bed. He is playing on his iPad. He is very enthusiastic about moving to a correction. Chest Chest: other ([id number]) Resp Effort & Inspection: normal respiratory effort and able to speak in complete sentences Cardio Rate: regular rate Skin General skin exam: other (I did not remove his wound dressings.) Objective Last Vital Signs Temp 96.4 F L 12/01/21 11:52 Pulse 80 12/01/21 11:52 Resp 18 12/01/21 11:52 BP 100/74 12/01/21 11:52 Pulse Ox 96 12/01/21 11:52 Laboratory Results - last 24 hr 12/01/21 13:09 Vancomycin Trough 19.2
[2021-12-02] MEDS: Mirabegron 25 MG TABCR PO (11:36)
[2021-12-02] MEDS: Senna TAB 2 TAB PO ×2 (11:36→21:15)
[2021-12-02] MEDS: DULoxetine 30 MG CAP 60 MG PO (11:37)
[2021-12-02] MEDS: Ascorbic Acid 500 MG TAB PO ×2 (11:37→21:15)
[2021-12-02] MEDS: Lactobacillus Acidophilus CAP 1 CAP PO ×3 (11:37→21:15)
[2021-12-02] MEDS: Docusate Sodium 100 MG CAP PO ×3 (11:37→21:15)
[2021-12-02] MEDS: Magnesium Chloride 64 MG TABCR 128 MG PO ×2 (11:37→21:14)
[2021-12-02] MEDS: guaiFENesin 600 MG TABCR PO ×2 (11:37→21:15)
[2021-12-02] MEDS: diazePAM 2 MG TAB PO ×3 (11:37→21:14)
[2021-12-02] MEDS: Multivitamin TAB 1 TAB PO (11:37)
[2021-12-02] MEDS: Cholecalciferol (Vitamin D3) 1,000 UNIT TAB 1000 UNITS PO (11:37)
[2021-12-02] MEDS: Pantoprazole 40 MG TABCR PO (11:38)
[2021-12-02] MEDS: Polyethylene Glycol 3350 17 GM PACKET PO (11:39)
[2021-12-02] MEDS: Protein Nutritional Supplement 16 GM 1 OUNCE PACKET PO ×3 (11:39→21:16)
[2021-12-02 12:23] VITALS: BP 147/85; PULSE 73; RESP 18; TEMP 37; O2SAT 97
[2021-12-02] MEDS: VANCOMYCIN/WATER (PEG) 1.25 GM/250 ML BAG IV ×2 (12:50→21:16)
[2021-12-02] MEDS: Normal Saline Flush 10 ML SYR IVP ×2 (12:50→21:16)
[2021-12-02] MEDS: cefTRIAXone 2 GM/50 ML BAG IVPB (18:48)
[2021-12-02] MEDS: Mirtazapine 15 MG TAB 30 MG PO (21:14)
[2021-12-02] MEDS: LORazepam 1 MG TAB PO (21:14)
[2021-12-03] MEDS: VANCOMYCIN/WATER (PEG) 1.25 GM/250 ML BAG IV ×2 (05:38→16:50)
[2021-12-03] MEDS: Normal Saline Flush 10 ML SYR IVP (05:39)
[2021-12-03] MEDS: Polyethylene Glycol 3350 17 GM PACKET PO (11:13)
[2021-12-03] MEDS: Protein Nutritional Supplement 16 GM 1 OUNCE PACKET PO ×3 (11:13→20:29)
[2021-12-03] MEDS: Enoxaparin 40 MG/0.4 ML SYR SC (11:14)
[2021-12-03] MEDS: Cholecalciferol (Vitamin D3) 1,000 UNIT TAB 1000 UNITS PO (11:15)
[2021-12-03] MEDS: diazePAM 2 MG TAB PO ×3 (11:15→20:30)
[2021-12-03] MEDS: DULoxetine 30 MG CAP 60 MG PO (11:15)
[2021-12-03] MEDS: Pantoprazole 40 MG TABCR PO (11:15)
[2021-12-03] MEDS: Senna TAB 2 TAB PO ×2 (11:15→20:30)
[2021-12-03] MEDS: Magnesium Chloride 64 MG TABCR 128 MG PO ×2 (11:15→20:29)
[2021-12-03] MEDS: guaiFENesin 600 MG TABCR PO ×2 (11:16→20:30)
[2021-12-03] MEDS: Ascorbic Acid 500 MG TAB PO ×2 (11:16→20:29)
[2021-12-03] MEDS: Lactobacillus Acidophilus CAP 1 CAP PO ×3 (11:16→20:30)
[2021-12-03] MEDS: Multivitamin TAB 1 TAB PO (11:16)
[2021-12-03] MEDS: Mirabegron 25 MG TABCR PO (11:16)
[2021-12-03] MEDS: Docusate Sodium 100 MG CAP PO ×3 (11:16→20:30)
[2021-12-03 11:57] VITALS: BP 118/78; PULSE 79; RESP 16; TEMP 36.4; O2SAT 95
[2021-12-03 16:56] LABS: Vancomycin, Trough 17.8 ug/mL (10.0-20.0)
--- NOTE | 2021-12-03 18:02 | PGE_ITS ---
Date of Service Date of service: 12/03/21 Time of Service: 18:02 Assessment and Plan Assessment and plan (1) Osteomyelitis of right foot: Status: Acute Assessment and plan: Continue ceftriaxone 2 g IV daily along with vancomycin dosed per pharmacy based on vancomycin trough levels for total of 6 weeks. Projected end date of his antibiotic treatment is January 08, 2022. The letty luna did receive some antibiotics prior to November 27, 2021 however his antibiotic regimen was interrupted due to lack of peripheral IV and the patient's refusal to allow a PICC line to be placed. Patient had a Mediport placed on January 08, 2022 and therefore that is the date we are using is the onset of effective antibiotic treatment. Qualifiers: Osteomyelitis type: unspecified type Qualified Code(s): M86.9 - Osteomyelitis, unspecified Subjective Subjective Patient reports: no new complaints Exam Narrative Exam Narrative: Favio has no acute complaints he is alert and oriented person place time circumstance. When I first went into his room he was on his iPad talking with his family. When I returned to talk with him he was playing video games on his iPad. Did have a coughing spell when I was in the room which he blamed on taking medication I did feel like it quite went down right. After sip of water he felt better. Heart regular rate and rhythm Lungs he has some end expiratory wheezes that clear with coughing and deep breathing. Abdomen soft and nontender. He has suprapubic catheter in place. No discharge. Lower extremities right foot has a dressing over the lateral dorsal aspect of the foot at the site of his fifth metatarsal resection. There is no induration and no erythema. Objective Last Vital Signs Temp 36.4 C L 12/03/21 11:57 Pulse 79 12/03/21 11:57 Resp 16 12/03/21 11:57 BP 118/78 12/03/21 11:57 Pulse Ox 95 12/03/21 11:57 Laboratory Results - last 24 hr 12/03/21 15:05 Vancomycin Trough 17.8
[2021-12-03] MEDS: cefTRIAXone 2 GM/50 ML BAG IVPB (19:17)
[2021-12-03] MEDS: LORazepam 1 MG TAB PO (20:30)
[2021-12-03] MEDS: Mirtazapine 15 MG TAB 30 MG PO (20:30)
[2021-12-04] MEDS: VANCOMYCIN/WATER (PEG) 1.25 GM/250 ML BAG IV ×3 (01:51→21:26)
[2021-12-04] MEDS: Normal Saline Flush 10 ML SYR IVP ×4 (01:52→21:27)
[2021-12-04 07:18] LABS: HCT 35.2 % (40.0-50.0); HGB 11.1 g/dL (13.5-17.5); MCH 28.2 pg (27.0-33.0); MCHC 31.5 % (32.0-36.0); MCV 89.3 fL (80-95); MPV 10.3 fL (8.0-11.0); Platelet Count 159 10^3/uL (130-400); RBC 3.94 10^6/uL (4.36-5.78); RDW 14.2 % (11.8-14.1); RDW-SD 46.5 fL; WBC 6.03 10^3/uL (4.4-10.8)
[2021-12-04] MEDS: Polyethylene Glycol 3350 17 GM PACKET PO (09:57)
[2021-12-04] MEDS: Ascorbic Acid 500 MG TAB PO ×2 (09:57→19:32)
[2021-12-04] MEDS: Protein Nutritional Supplement 16 GM 1 OUNCE PACKET PO ×3 (09:57→19:30)
[2021-12-04] MEDS: Lactobacillus Acidophilus CAP 1 CAP PO ×3 (09:58→19:32)
[2021-12-04] MEDS: Enoxaparin 40 MG/0.4 ML SYR SC (09:58)
[2021-12-04] MEDS: Pantoprazole 40 MG TABCR PO (09:59)
[2021-12-04] MEDS: Senna TAB 2 TAB PO ×2 (09:59→19:31)
[2021-12-04] MEDS: Multivitamin TAB 1 TAB PO (09:59)
[2021-12-04] MEDS: Cholecalciferol (Vitamin D3) 1,000 UNIT TAB 1000 UNITS PO (10:00)
[2021-12-04] MEDS: DULoxetine 30 MG CAP 60 MG PO (10:00)
[2021-12-04] MEDS: diazePAM 2 MG TAB PO ×3 (10:00→19:31)
[2021-12-04] MEDS: guaiFENesin 600 MG TABCR PO ×2 (10:00→19:31)
[2021-12-04] MEDS: Magnesium Chloride 64 MG TABCR 128 MG PO ×2 (10:01→19:30)
[2021-12-04] MEDS: Mirabegron 25 MG TABCR PO (10:01)
[2021-12-04] MEDS: Docusate Sodium 100 MG CAP PO ×3 (10:01→19:32)
[2021-12-04 12:10] VITALS: BP 119/78; PULSE 67; RESP 18; TEMP 36.1; O2SAT 97
[2021-12-04] MEDS: cefTRIAXone 2 GM/50 ML BAG IVPB (17:49)
[2021-12-04] MEDS: LORazepam 1 MG TAB PO (19:30)
[2021-12-04] MEDS: Mirtazapine 15 MG TAB 30 MG PO (19:32)
--- NOTE | 2021-12-05 08:23 | CMPROGNOTE_ITS ---
- If Service Date Differs Date of service: 12/05/21 Time of Service: 08:23 Care Management Progress Note S/O: Favio was sitting up in bed when CM met with him. He remains in good spirits since learning that he will be able to go to an [facility] home in [place] soon. [facility] has been working with [facility] completing necessary paperwork for the enrollment process for [facility] and [employer]. There is a plan for the AFC to be inspected in the next week or so. It is hoped that Favio will be able to discharge shortly after that. A: Favio is a 56 year old man admitted on 09/01/21 with a UTI P: Favio will likely be transferred to an [facility] home and will complete his IVAB course there. There is a home in [facility] with a provider who has accepted Favio as a client. Her name is Cary Ahumada . Final paperwork with and approval from the [facility] pending. Transfer anticipated within the next week to 10 days. CM coordinating the ordering of hospital bed and christa lift with [facility] and [facility] [place] on A[facility]. CM will continue to support Favio and assess for ongoing discharge planning needs.
--- NOTE | 2021-12-05 08:24 | CMACTNOTE_ITS ---
- If Service Date Differs Date of service: 12/05/21 Time of Service: 08:24 Care Management Activity Note S/O: Favio has been getting up in his motorized wheelchair occasionally and continues to engage with friends and family on his Ipad and by phone. He has also been communicating with Cary Elias, his prospective [facility] home provider, on a regular basis via phone. His parents come to visit often and some of his friends and other relatives do as well. Favio would enjoy music and pet therapy if they become available. CM was able to provide Favio with some art supplies such as a drawing pad, markers, and paint sticks with which to draw. These are items he expressed interest in. CM visits with Favio on a regular basis and staff have been spending extra time with him. A: Favio is a 56 year old man admitted on 09/01/21 with a UTI P: Favio has been accepted into an [facility] home in [place]. Meetings were held with the home care provider (Cary Ahumada) and she has accepted him as a client. Final paperwork with [facility] pending with transfer anticipated for next week. CM coordinating the ordering of medical equipment such as hospital bed and christa lift with [facility]. CM will continue to support Favio in his transition back to the community.
[2021-12-05] MEDS: Polyethylene Glycol 3350 17 GM PACKET PO (08:37)
[2021-12-05] MEDS: Protein Nutritional Supplement 16 GM 1 OUNCE PACKET PO ×3 (08:37→19:35)
[2021-12-05] MEDS: DULoxetine 30 MG CAP 60 MG PO (08:39)
[2021-12-05] MEDS: Pantoprazole 40 MG TABCR PO (08:39)
[2021-12-05] MEDS: Multivitamin TAB 1 TAB PO (08:39)
[2021-12-05] MEDS: Magnesium Chloride 64 MG TABCR 128 MG PO ×2 (08:39→19:34)
[2021-12-05] MEDS: Lactobacillus Acidophilus CAP 1 CAP PO ×3 (08:39→19:35)
[2021-12-05] MEDS: Ascorbic Acid 500 MG TAB PO ×2 (08:39→19:34)
[2021-12-05] MEDS: guaiFENesin 600 MG TABCR PO ×2 (08:40→19:35)
[2021-12-05] MEDS: Cholecalciferol (Vitamin D3) 1,000 UNIT TAB 1000 UNITS PO (08:40)
[2021-12-05] MEDS: diazePAM 2 MG TAB PO ×3 (08:40→19:34)
[2021-12-05] MEDS: Mirabegron 25 MG TABCR PO (08:40)
[2021-12-05] MEDS: Senna TAB 2 TAB PO ×2 (08:40→19:35)
[2021-12-05] MEDS: Docusate Sodium 100 MG CAP PO ×3 (08:40→19:34)
[2021-12-05] MEDS: Enoxaparin 40 MG/0.4 ML SYR SC (10:02)
[2021-12-05] MEDS: Normal Saline Flush 10 ML SYR IVP (10:02)
[2021-12-05 10:30] LABS: Vancomycin, Trough 15.5 ug/mL (10.0-20.0)
[2021-12-05] MEDS: VANCOMYCIN/WATER (PEG) 1.25 GM/250 ML BAG IV ×2 (11:20→23:15)
[2021-12-05 11:37] VITALS: BP 134/87; PULSE 95; RESP 14; TEMP 36.8; O2SAT 94
[2021-12-05 13:53] LABS: Bilirubin Negative (Negative); Blood Trace-intact (Negative); Clarity Sl Cloudy (Clear); Glucose Negative (Negative); Ketones Negative (Negative); Leukocyte Esterase Moderate (Negative); Nitrite Negative (Negative); Specific Gravity >= 1.030 (1.005-1.025); Urobilinogen 0.2 EU/dL (Up TO 0.2); pH 5.5 (5-8)
[2021-12-05 13:58] LABS: RBC 0-2 HPF (0-2); WBC >50 HPF (0-5)
[2021-12-05 13:59] LABS: Bacteria Moderate HPF (Negative); C & S Indicated? Yes; Casts Negative LPF (Negative); Crystals Negative HPF (Negative); Epithelial Cells Few HPF (Negative); Mucus Trace (Negative); Other Cells Few Yeast (Negative)
[2021-12-05 14:18] VITALS: TEMP 37.5
--- NOTE | 2021-12-05 15:00 | DI.CT_ITS ---
Exam(s) CT CERVICAL SPINE W EXAM: CT CERVICAL SPINE W CLINICAL HISTORY: neck pain, fevers TECHNIQUE: COMPARISON: CT CT CERVICAL SPINE WO from 11/24/2021 FINDINGS: CT examination of the cervical spine was performed. Contrast material was injected intravenously, 67 0 cc of Omnipaque 350. Examination is compared with recent CT of November 24. Note is again made of posterior fixation bryon s in place with screw attachments at posterior elements of C4 and C5 and of T1 and T2. Bone grafts a ppear to be in place and unchanged. Hardware appears intact. Alignment appears unchanged comparison with prior examination with an upper cervical kyphosis noted. There is no gross acute fracture or d islocation. No cervical mass or adenopathy. No cervical abscess identified. Visualized lung apices are clear. Tracheolaryngeal structures appear intact. IMPRESSION: Postsurgical changes as described above. No change from November 24 study. No gross evidence of cervical fluid collection or abscess. RADIATION DOSE DELIVERED: 513.27mGy.cm Total DLP CTDIvol RADIATION OPTIMIZATION: All CT scans at this facility use at least one of these dose optimization te chniques: automated exposure control; mA and/or kV adjustment per patient size (includes targeted exa ms where dose is matched to clinical indication); or iterative reconstruction.
--- NOTE | 2021-12-05 15:02 | DI.RAD_ITS ---
Exam(s) XR CHEST 1V IN DI DEPT EXAM: XR CHEST 1V IN DI DEPT CLINICAL HISTORY: fever TECHNIQUE: COMPARISON: CR XR PORTABLE CHEST AP POST LINE from 11/27/2021 FINDINGS: Portable AP chest at 1538 hours. Port-A-Cath noted in position via left subclavian route. Cervical spinal hardware noted. The left hand overlies the left side of the thorax and obscures portions of t he left lower lobe. Visualized lungs are clear. No gross pleural effusion on these AP views. IMPRESSION: No evidence of acute change. RADIATION DOSE DELIVERED: Total DLP
[2021-12-05] MEDS: Acetaminophen 325 MG TAB 650 MG PO (16:13)
[2021-12-05] MEDS: FLUCONAZOLE 200 MG/100 ML BAG 100 MG IVPB ×4 (16:13→21:54)
[2021-12-05 16:33] LABS: Abs Immature Grans 0.05 10^3/uL (0.0-0.06); Absolute Basophil Count 0.02 10^3/uL (0.0-0.2); Absolute Eosinophil Count 0.08 10^3/uL (0.0-0.7); Absolute Lymphocyte Count 0.66 10^3/uL (1.2-3.4); Absolute Monocyte Count 0.58 10^3/uL (0.1-0.8); Absolute Neutrophil Count 7.58 10^3/uL (1.2-6.7); Basophils % 0.2; Eosinophils % 0.9; HCT 35.8 % (40.0-50.0); HGB 11.5 g/dL (13.5-17.5); Immature Grans % 0.6; Lymphocytes % 7.4; MCH 28.5 pg (27.0-33.0); MCHC 32.1 % (32.0-36.0); MCV 88.6 fL (80-95); MPV 10.5 fL (8.0-11.0); Monocytes % 6.5; Neutrophils % 84.4; Nucleated RBC 0 %; Platelet Count 168 10^3/uL (130-400); RBC 4.04 10^6/uL (4.36-5.78); RDW 14.2 % (11.8-14.1); RDW-SD 45.9 fL; WBC 8.97 10^3/uL (4.4-10.8)
[2021-12-05 16:37] LABS: ALT 33 U/L (16-63); AST 14 U/L (15-37); Alkaline Phosphatase 74 U/L (46-116); Anion Gap 7.5 mmol/L (3-11); BUN 24 mg/dL (7-18); Bilirubin, Total 0.2 mg/dL (0.2-1.0); C-Reactive Protein 6.19 mg/dL (0.0-0.3); CO2 25.5 mmol/L (21.0-32.0); CREATININE 0.8 mg/dL (0.70-1.30); Calcium 8.8 mg/dL (8.5-10.1); Chloride 104 mmol/L (98-107); Glucose 118 mg/dL (74-106); Potassium 3.8 mmol/L (3.5-5.1); Sodium 137 mmol/L (136-145); Total Protein 6.5 g/dL (6.4-8.2)
[2021-12-05 16:38] LABS: ESR 19 mm/hr (0-20)
[2021-12-05 17:07] LABS: Procalcitonin < 0.1 ng/mL
[2021-12-05] MEDS: cefTRIAXone 2 GM/50 ML BAG IVPB (19:31)
[2021-12-05] MEDS: LORazepam 1 MG TAB PO (19:34)
[2021-12-05] MEDS: Mirtazapine 15 MG TAB 30 MG PO (19:34)
[2021-12-05 20:02] VITALS: BP 132/81; PULSE 83; RESP 16; TEMP 35.9; O2SAT 96
--- NOTE | 2021-12-05 21:22 | W.PM.PROGNOT ---
Date of Service Date of service: 12/05/21 Time of Service: 15:00 Assessment and Plan Assessment and plan (1) Complicated UTI (urinary tract infection): Status: Suspected Assessment and plan: His CXR is clear and his CT of his c-spine did not show any acute findings: IMPRESSION: Postsurgical changes as described above. No change from November 24 study. No gross evidence of cervical fluid collection or abscess His urinalysis demonstrates moderate L.E., >50 WBC/ hpf, neg. nitrites, mod. bacteria and few yeast. He is already on Rocephin 2 gm daily and Vancomycin which should cover Enterococcus sp, and most gram negatives and gram positive organisms, unless he is growing an ESBL organism or a yeast fungemia. I will treat w/ fluconazole; cont. current antibiotic regimen but modify based on his culture results. He has no elevation of his WBC nor his procalcitonin but his CRP is on the rise. Subjective Subjective Interval history since last seen: Patient complains of chills and is having rigors. He also complains of myalgias and neck pain. he has a temperature of 37.5. He has behaved this way in the past when he is getting septic. he is currently on Rocephin 2 gm iv daily along w/ vancomycin (dosed by pharmacy). 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 he has been doing fine w/ his treatments and his wound has looked good. He did have UA on 11/24 that looked suspicious for UTI and he was given fosfomycin. The urine culture grew 50,000 to 100,000 CFU of yeast. Favio has hx of Candidemia in the past. As he is on broad spectrum antibiotics, I have a low threshold for treating for fungal infection. I will order blood and urine cultures and check CXR and check CT of his C-spine. Exam Narrative Exam Narrative: Middle age white male who appears ill, he is having tremors of his hands Neck: s/p cervical fusion, so it is not supple; he is somewhat tender to palpation over his neck and paracervical muscles; unable to assess for nuchal rigidity Lungs: clear Heart: RRR Abdomen: soft, nontender Right foot wound: I did not get a look at it today as I was called away on another emergency on the floor when the nurses were doing his dressing change but his nurse reported that the wound looked clean Objective Last Vital Signs Temp 35.9 C L 12/05/21 20:02 Pulse 83 12/05/21 20:02 Resp 16 12/05/21 20:02 BP 132/81 12/05/21 20:02 Pulse Ox 96 12/05/21 20:02 Laboratory Results - last 24 hr 12/05/21 12/05/21 12/05/21 07:02 10:05 13:25 WBC RBC Hgb Hct MCV MCH MCHC RDW Plt Count MPV Immature Gran % Neutrophils % Lymphocytes % Monocytes % Eosinophils % Basophils % Nucleated RBC % Absolute Neutrophils Absolute Lymphocytes Absolute Monocytes Absolute Eosinophils Absolute Basophils ESR Sodium Potassium Chloride Carbon Dioxide Anion Gap BUN Creatinine Estimated GFR/1.73 m2 Glucose Calcium Total Bilirubin AST ALT Alkaline Phosphatase C-Reactive Protein Total Protein Albumin Procalcitonin Urine Color Yellow Urine Clarity Sl Cloudy Urine pH 5.5 Ur Specific [place] >= 1.030 H Urine Protein Negative Urine Ketones Negative Urine Blood Trace-intact H Urine Nitrite Negative Urine Bilirubin Negative Urine Urobilinogen 0.2 Ur Leukocyte Esterase Moderate H Urine RBC 0-2 Urine WBC >50 H Ur Epithelial Cells Few Urine Crystals Negative Urine Bacteria Moderate Urine Casts Negative Urine Mucus Trace Urine Other Few Yeast Ur Culture Indicated? Yes Urine Glucose Negative Vancomycin Trough Cancelled 15.5 12/05/21 12/05/21 12/05/21 16:00 16:00 16:00 WBC RBC Hgb Hct MCV MCH MCHC RDW Plt Count MPV Immature Gran % Neutrophils % Lymphocytes % Monocytes % Eosinophils % Basophils % Nucleated RBC % Absolute Neutrophils Absolute Lymphocytes Absolute Monocytes Absolute Eosinophils Absolute Basophils ESR 19 Sodium 137 Potassium 3.8 Chloride 104 Carbon Dioxide 25.5 Anion Gap 7.5 BUN 24 H Creatinine 0.8 Estimated GFR/1.73 m2 >= 60.00 Glucose 118 H Calcium 8.8 Total Bilirubin 0.2 AST 14 L ALT 33 Alkaline Phosphatase 74 C-Reactive Protein 6.19 H Total Protein 6.5 Albumin 3.0 L Procalcitonin < 0.1 Urine Color Urine Clarity Urine pH Ur Specific [place] Urine Protein Urine Ketones Urine Blood Urine Nitrite Urine Bilirubin Urine Urobilinogen Ur Leukocyte Esterase Urine RBC Urine WBC Ur Epithelial Cells Urine Crystals Urine Bacteria Urine Casts Urine Mucus Urine Other Ur Culture Indicated? Urine Glucose Vancomycin Trough 12/05/21 16:00 WBC 8.97 RBC 4.04 L Hgb 11.5 L Hct 35.8 L MCV 88.6 MCH 28.5 MCHC 32.1 RDW 14.2 H Plt Count 168 MPV 10.5 Immature Gran % 0.6 Neutrophils % 84.4 Lymphocytes % 7.4 Monocytes % 6.5 Eosinophils % 0.9 Basophils % 0.2 Nucleated RBC % 0 Absolute Neutrophils 7.58 H Absolute Lymphocytes 0.66 L Absolute Monocytes 0.58 Absolute Eosinophils 0.08 Absolute Basophils 0.02 ESR Sodium Potassium Chloride Carbon Dioxide Anion Gap BUN Creatinine Estimated GFR/1.73 m2 Glucose Calcium Total Bilirubin AST ALT Alkaline Phosphatase C-Reactive Protein Total Protein Albumin Procalcitonin Urine Color Urine Clarity Urine pH Ur Specific [place] Urine Protein Urine Ketones Urine Blood Urine Nitrite Urine Bilirubin Urine Urobilinogen Ur Leukocyte Esterase Urine RBC Urine WBC Ur Epithelial Cells Urine Crystals Urine Bacteria Urine Casts Urine Mucus Urine Other Ur Culture Indicated? Urine Glucose Vancomycin Trough
[2021-12-06] MEDS: Normal Saline Flush 10 ML SYR IVP ×6 (01:16→23:32)
[2021-12-06 07:01] LABS: HCT 34.3 % (40.0-50.0); HGB 11.2 g/dL (13.5-17.5); MCH 28.6 pg (27.0-33.0); MCHC 32.7 % (32.0-36.0); MCV 87.7 fL (80-95); MPV 10.3 fL (8.0-11.0); Platelet Count 163 10^3/uL (130-400); RBC 3.91 10^6/uL (4.36-5.78); RDW 14.3 % (11.8-14.1); RDW-SD 45.9 fL; WBC 6.16 10^3/uL (4.4-10.8)
[2021-12-06 10:34] VITALS: BP 148/83; PULSE 67; RESP 19; TEMP 36.7; O2SAT 96
[2021-12-06] MEDS: Polyethylene Glycol 3350 17 GM PACKET PO (10:51)
[2021-12-06] MEDS: Milk of Magnesia 30 ML CUP PO (10:51)
[2021-12-06] MEDS: Protein Nutritional Supplement 16 GM 1 OUNCE PACKET PO ×3 (10:51→19:25)
[2021-12-06] MEDS: Enoxaparin 40 MG/0.4 ML SYR SC (10:51)
[2021-12-06] MEDS: Pantoprazole 40 MG TABCR PO (10:52)
[2021-12-06] MEDS: diazePAM 2 MG TAB PO ×3 (10:52→19:27)
[2021-12-06] MEDS: Ascorbic Acid 500 MG TAB PO ×2 (10:52→19:28)
[2021-12-06] MEDS: Mirabegron 25 MG TABCR PO (10:52)
[2021-12-06] MEDS: Cholecalciferol (Vitamin D3) 1,000 UNIT TAB 1000 UNITS PO (10:52)
[2021-12-06] MEDS: DULoxetine 30 MG CAP 60 MG PO (10:52)
[2021-12-06] MEDS: guaiFENesin 600 MG TABCR PO ×2 (10:52→19:27)
[2021-12-06] MEDS: Senna TAB 2 TAB PO ×2 (10:52→19:27)
[2021-12-06] MEDS: Multivitamin TAB 1 TAB PO (10:52)
[2021-12-06] MEDS: Lactobacillus Acidophilus CAP 1 CAP PO ×3 (10:52→19:26)
[2021-12-06] MEDS: Docusate Sodium 100 MG CAP PO ×3 (10:53→19:26)
[2021-12-06] MEDS: Magnesium Chloride 64 MG TABCR 128 MG PO ×2 (10:53→19:27)
[2021-12-06] MEDS: VANCOMYCIN/WATER (PEG) 1.25 GM/250 ML BAG IV ×2 (12:27→23:31)
--- NOTE | 2021-12-06 16:36 | W.PM.PROGNOT ---
Date of Service Date of service: 12/06/21 Time of Service: 16:36 Assessment and Plan Assessment and plan (1) Fungemia: Status: Acute Assessment and plan: His urine showed evidence of yeast. He was empirically started on Diflucan. He has had marked improvement overnight. We will continue on IV Diflucan 400 mg daily. His urine culture from yesterday is growing yeast. (2) Complicated UTI (urinary tract infection): Status: Suspected Assessment and plan: Because of his chronic indwelling catheter he has had many complicated UTIs. He is on vancomycin and Rocephin at this time. Blood cultures are negative to date. (3) Osteomyelitis of right foot: Status: Acute Assessment and plan: He continues on the vancomycin and Rocephin. Dr. Silva came by and observe his wound today and thought it looked good. Qualifiers: Osteomyelitis type: unspecified type Qualified Code(s): M86.9 - Osteomyelitis, unspecified Subjective Subjective Interval history since last seen: Patient had an extensive work-up yesterday because of fever and chills. Today he reports that he feels 100% better. He is not sure what caused him to feel poorly yesterday. Exam Narrative Exam Narrative: On exam he sitting up in bed on his personal computer. He appeared in no apparent distress. His vital signs were stable. He has been afebrile. Objective Last Vital Signs Temp 36.7 C 12/06/21 10:34 Pulse 67 12/06/21 10:34 Resp 19 12/06/21 10:34 BP 148/83 H 12/06/21 10:34 Pulse Ox 96 12/06/21 10:34 Laboratory Results - last 24 hr 12/05/21 12/05/21 12/05/21 16:00 16:00 16:00 WBC RBC Hgb Hct MCV MCH MCHC RDW Plt Count MPV Immature Gran % Neutrophils % Lymphocytes % Monocytes % Eosinophils % Basophils % Nucleated RBC % Absolute Neutrophils Absolute Lymphocytes Absolute Monocytes Absolute Eosinophils Absolute Basophils ESR 19 Sodium 137 Potassium 3.8 Chloride 104 Carbon Dioxide 25.5 Anion Gap 7.5 BUN 24 H Creatinine 0.8 Estimated GFR/1.73 m2 >= 60.00 Glucose 118 H Calcium 8.8 Total Bilirubin 0.2 AST 14 L ALT 33 Alkaline Phosphatase 74 C-Reactive Protein 6.19 H Total Protein 6.5 Albumin 3.0 L Procalcitonin < 0.1 12/05/21 12/06/21 16:00 06:35 WBC 8.97 6.16 D RBC 4.04 L 3.91 L Hgb 11.5 L 11.2 L Hct 35.8 L 34.3 L MCV 88.6 87.7 MCH 28.5 28.6 MCHC 32.1 32.7 RDW 14.2 H 14.3 H Plt Count 168 163 MPV 10.5 10.3 Immature Gran % 0.6 Neutrophils % 84.4 Lymphocytes % 7.4 Monocytes % 6.5 Eosinophils % 0.9 Basophils % 0.2 Nucleated RBC % 0 Absolute Neutrophils 7.58 H Absolute Lymphocytes 0.66 L Absolute Monocytes 0.58 Absolute Eosinophils 0.08 Absolute Basophils 0.02 ESR Sodium Potassium Chloride Carbon Dioxide Anion Gap BUN Creatinine Estimated GFR/1.73 m2 Glucose Calcium Total Bilirubin AST ALT Alkaline Phosphatase C-Reactive Protein Total Protein Albumin Procalcitonin
[2021-12-06] MEDS: Bisacodyl 10 MG SUPP PR (17:02)
[2021-12-06] MEDS: cefTRIAXone 2 GM/50 ML BAG IVPB (17:56)
[2021-12-06] MEDS: Mirtazapine 15 MG TAB 30 MG PO (19:27)
[2021-12-06] MEDS: LORazepam 1 MG TAB PO (19:27)
[2021-12-06] MEDS: Normal Saline 500 ML 30 ML IV (23:33)
[2021-12-07] MEDS: Polyethylene Glycol 3350 17 GM PACKET PO (11:15)
[2021-12-07] MEDS: Protein Nutritional Supplement 16 GM 1 OUNCE PACKET PO ×3 (11:15→20:54)
[2021-12-07] MEDS: Enoxaparin 40 MG/0.4 ML SYR SC (11:15)
[2021-12-07] MEDS: Normal Saline Flush 10 ML SYR IVP ×2 (11:15→20:55)
[2021-12-07] MEDS: diazePAM 2 MG TAB PO ×3 (11:16→20:54)
[2021-12-07] MEDS: Acetaminophen 325 MG TAB 650 MG PO (11:16)
[2021-12-07] MEDS: Magnesium Chloride 64 MG TABCR 128 MG PO ×2 (11:16→20:54)
[2021-12-07] MEDS: Multivitamin TAB 1 TAB PO (11:17)
[2021-12-07] MEDS: Ascorbic Acid 500 MG TAB PO ×2 (11:17→20:53)
[2021-12-07] MEDS: guaiFENesin 600 MG TABCR PO ×2 (11:17→20:55)
[2021-12-07] MEDS: Lactobacillus Acidophilus CAP 1 CAP PO ×3 (11:17→20:54)
[2021-12-07] MEDS: Mirabegron 25 MG TABCR PO (11:17)
[2021-12-07] MEDS: Pantoprazole 40 MG TABCR PO (11:17)
[2021-12-07] MEDS: Docusate Sodium 100 MG CAP PO ×3 (11:17→20:54)
[2021-12-07] MEDS: Senna TAB 2 TAB PO ×2 (11:17→20:54)
[2021-12-07] MEDS: DULoxetine 30 MG CAP 60 MG PO (11:17)
[2021-12-07] MEDS: Cholecalciferol (Vitamin D3) 1,000 UNIT TAB 1000 UNITS PO (11:17)
[2021-12-07 11:38] LABS: CREATININE 0.6 mg/dL (0.70-1.30)
[2021-12-07 11:44] LABS: Vancomycin, Trough 14.2 ug/mL (10.0-20.0)
[2021-12-07] MEDS: VANCOMYCIN/WATER (PEG) 1.25 GM/250 ML BAG IV ×2 (12:31→23:11)
[2021-12-07] MEDS: Fluconazole 100 MG TAB 200 MG PO (15:10)
[2021-12-07] MEDS: cefTRIAXone 2 GM/50 ML BAG IVPB (18:31)
[2021-12-07] MEDS: Mirtazapine 15 MG TAB 30 MG PO (20:54)
[2021-12-07] MEDS: LORazepam 1 MG TAB PO (20:55)
[2021-12-07 22:08] VITALS: BP 108/61; PULSE 98; RESP 18; TEMP 37.8; O2SAT 94
[2021-12-08 06:30] LABS: HCT 36.2 % (40.0-50.0); HGB 11.4 g/dL (13.5-17.5); MCH 27.9 pg (27.0-33.0); MCHC 31.5 % (32.0-36.0); MCV 88.5 fL (80-95); Platelet Count 189 10^3/uL (130-400); RBC 4.09 10^6/uL (4.36-5.78); RDW 14.2 % (11.8-14.1); RDW-SD 45.7 fL
[2021-12-08] MEDS: Protein Nutritional Supplement 16 GM 1 OUNCE PACKET PO ×3 (10:30→19:46)
[2021-12-08] MEDS: Polyethylene Glycol 3350 17 GM PACKET PO (10:30)
[2021-12-08] MEDS: Magnesium Chloride 64 MG TABCR 128 MG PO ×2 (10:31→19:46)
[2021-12-08] MEDS: Enoxaparin 40 MG/0.4 ML SYR SC (10:31)
[2021-12-08] MEDS: Docusate Sodium 100 MG CAP PO ×3 (10:31→19:46)
[2021-12-08] MEDS: Pantoprazole 40 MG TABCR PO (10:31)
[2021-12-08] MEDS: guaiFENesin 600 MG TABCR PO ×2 (10:31→19:46)
[2021-12-08] MEDS: Mirabegron 25 MG TABCR PO (10:32)
[2021-12-08] MEDS: diazePAM 2 MG TAB PO ×3 (10:32→19:46)
[2021-12-08] MEDS: Senna TAB 2 TAB PO ×2 (10:32→19:46)
[2021-12-08] MEDS: Metoclopramide 10 MG TAB PO ×2 (10:32→17:54)
[2021-12-08] MEDS: Cholecalciferol (Vitamin D3) 1,000 UNIT TAB 1000 UNITS PO (10:33)
[2021-12-08] MEDS: Lactobacillus Acidophilus CAP 1 CAP PO ×3 (10:33→19:47)
[2021-12-08] MEDS: Multivitamin TAB 1 TAB PO (10:33)
[2021-12-08] MEDS: DULoxetine 30 MG CAP 60 MG PO (10:33)
[2021-12-08] MEDS: Ascorbic Acid 500 MG TAB PO ×2 (10:33→19:47)
[2021-12-08] MEDS: Normal Saline Flush 10 ML SYR IVP ×2 (10:34→19:45)
[2021-12-08] MEDS: Normal Saline 500 ML 30 ML IV (12:00)
[2021-12-08] MEDS: VANCOMYCIN/WATER (PEG) 1.25 GM/250 ML BAG IV (12:00)
[2021-12-08 14:47] VITALS: BP 129/86; PULSE 88; RESP 14; TEMP 37.5; O2SAT 96
[2021-12-08] MEDS: Fluconazole 100 MG TAB 200 MG PO (15:28)
--- NOTE | 2021-12-08 16:34 | NUR.NOTE ---
Nursing Note: Concern over patient's distension, concern that he appears more endenomous. Patient is up over 5 kg since Thanksgiving. 85 kg today. Concerns addressed to the provider, awaiting orders.
[2021-12-08] MEDS: cefTRIAXone 2 GM/50 ML BAG IVPB (17:54)
[2021-12-08] MEDS: LORazepam 1 MG TAB PO (19:46)
[2021-12-08] MEDS: Mirtazapine 15 MG TAB 30 MG PO (19:46)
[2021-12-08] MEDS: Acetaminophen 325 MG TAB 650 MG PO (23:09)
[2021-12-09] MEDS: Normal Saline Flush 10 ML SYR IVP ×4 (01:06→20:42)
[2021-12-09] MEDS: VANCOMYCIN/WATER (PEG) 1.25 GM/250 ML BAG IV ×3 (01:06→23:27)
[2021-12-09 06:37] LABS: HCT 35.4 % (40.0-50.0); HGB 11.2 g/dL (13.5-17.5); MCHC 31.6 % (32.0-36.0); MCV 88.5 fL (80-95); MPV 9.8 fL (8.0-11.0); Platelet Count 192 10^3/uL (130-400); RDW 14.3 % (11.8-14.1); RDW-SD 46.2 fL; WBC 6.13 10^3/uL (4.4-10.8)
[2021-12-09] MEDS: DULoxetine 30 MG CAP 60 MG PO (09:09)
[2021-12-09] MEDS: Cholecalciferol (Vitamin D3) 1,000 UNIT TAB 1000 UNITS PO (09:09)
[2021-12-09] MEDS: Mirabegron 25 MG TABCR PO (09:09)
[2021-12-09] MEDS: Docusate Sodium 100 MG CAP PO ×3 (09:09→20:41)
[2021-12-09] MEDS: Senna TAB 2 TAB PO ×2 (09:09→20:42)
[2021-12-09] MEDS: Protein Nutritional Supplement 16 GM 1 OUNCE PACKET PO ×3 (09:09→20:41)
[2021-12-09] MEDS: Magnesium Chloride 64 MG TABCR 128 MG PO ×2 (09:09→20:42)
[2021-12-09] MEDS: Polyethylene Glycol 3350 17 GM PACKET PO (09:09)
[2021-12-09] MEDS: guaiFENesin 600 MG TABCR PO ×2 (09:09→20:42)
[2021-12-09] MEDS: Metoclopramide 10 MG TAB PO ×3 (09:10→17:10)
[2021-12-09] MEDS: Pantoprazole 40 MG TABCR PO (09:10)
[2021-12-09] MEDS: Ascorbic Acid 500 MG TAB PO ×2 (09:10→20:42)
[2021-12-09] MEDS: Lactobacillus Acidophilus CAP 1 CAP PO ×3 (09:10→20:42)
[2021-12-09] MEDS: Multivitamin TAB 1 TAB PO (09:10)
[2021-12-09] MEDS: diazePAM 2 MG TAB PO ×3 (09:10→20:42)
[2021-12-09] MEDS: Enoxaparin 40 MG/0.4 ML SYR SC (10:22)
[2021-12-09 10:51] LABS: CREATININE 0.5 mg/dL (0.70-1.30)
[2021-12-09 11:02] LABS: Vancomycin, Trough 16.1 ug/mL (10.0-20.0)
[2021-12-09] MEDS: Normal Saline 500 ML 30 ML IV (11:57)
--- NOTE | 2021-12-09 14:27 | PCPN_ITS ---
Date of service: 12/09/21 Time of Service: 14:27 Assessment and Plan Assessment and plan (1) Osteomyelitis of right foot: Status: Acute Qualifiers: Osteomyelitis type: unspecified type Qualified Code(s): M86.9 - Osteomyelitis, unspecified (2) Discharge planning issues: Status: Acute (3) Palliative care encounter: Status: Acute Assessment and plan: Monitor weight changes, but he has had a pretty good stretch of relative health so his weight change may be calorie, diet, activity related Working on the transition [place] a [place] facility Seems stable, but understandably inpatient to move on (4) Weight gain: Status: Acute Subjective Subjective Interval history since last seen: There was a weight gain of 6 lbs. Dea states he has been having BM regularly and doesn't feel constipated. He feels the weight gain is because of inactivity He is anxious to move into the [place] facility. Exam Eyes General: appearance normal, both eyes and all related structures Neck Neck: normal visual inspection and other (pillow around neck for support) Resp Effort & Inspection: normal respiratory effort and able to speak in complete sentences Cardio Rate: regular rate Objective Last Vital Signs Temp 99.5 F 12/08/21 14:47 Pulse 88 12/08/21 14:47 Resp 14 12/08/21 14:47 BP 129/86 12/08/21 14:47 Pulse Ox 96 12/08/21 14:47 Laboratory Results - last 24 hr 12/09/21 12/09/21 12/09/21 06:20 10:27 10:27 WBC 6.13 RBC 4.00 L Hgb 11.2 L Hct 35.4 L MCV 88.5 MCH 28.0 MCHC 31.6 L RDW 14.3 H Plt Count 192 MPV 9.8 Creatinine 0.5 L Estimated GFR/1.73 m2 >= 60.00 Vancomycin Trough 16.1
[2021-12-09 14:56] VITALS: BP 98/62; PULSE 95; RESP 16; TEMP 37.3; O2SAT 93
[2021-12-09] MEDS: Fluconazole 100 MG TAB 200 MG PO (17:09)
[2021-12-09] MEDS: cefTRIAXone 2 GM/50 ML BAG IVPB (17:10)
[2021-12-09] MEDS: Mirtazapine 15 MG TAB 30 MG PO (20:42)
[2021-12-09] MEDS: LORazepam 1 MG TAB PO (20:42)
[2021-12-10] MEDS: Polyethylene Glycol 3350 17 GM PACKET PO (08:45)
[2021-12-10] MEDS: Protein Nutritional Supplement 16 GM 1 OUNCE PACKET PO ×3 (08:45→21:15)
[2021-12-10] MEDS: Metoclopramide 10 MG TAB PO ×2 (08:46→10:42)
[2021-12-10] MEDS: DULoxetine 30 MG CAP 60 MG PO (08:46)
[2021-12-10] MEDS: guaiFENesin 600 MG TABCR PO ×2 (08:46→21:15)
[2021-12-10] MEDS: diazePAM 2 MG TAB PO ×3 (08:46→21:15)
[2021-12-10] MEDS: Multivitamin TAB 1 TAB PO (08:46)
[2021-12-10] MEDS: Cholecalciferol (Vitamin D3) 1,000 UNIT TAB 1000 UNITS PO (08:46)
[2021-12-10] MEDS: Docusate Sodium 100 MG CAP PO ×3 (08:46→21:15)
[2021-12-10] MEDS: Magnesium Chloride 64 MG TABCR 128 MG PO ×2 (08:46→21:15)
[2021-12-10] MEDS: Mirabegron 25 MG TABCR PO (08:46)
[2021-12-10] MEDS: Senna TAB 2 TAB PO ×2 (08:46→21:15)
[2021-12-10] MEDS: Pantoprazole 40 MG TABCR PO (08:47)
[2021-12-10] MEDS: Lactobacillus Acidophilus CAP 1 CAP PO ×3 (08:47→21:15)
[2021-12-10] MEDS: Ascorbic Acid 500 MG TAB PO ×2 (08:47→21:15)
[2021-12-10] MEDS: Enoxaparin 40 MG/0.4 ML SYR SC (10:41)
[2021-12-10 11:28] VITALS: BP 117/76; PULSE 82; RESP 17; TEMP 36.5; O2SAT 94
[2021-12-10] MEDS: VANCOMYCIN/WATER (PEG) 1.25 GM/250 ML BAG IV ×2 (11:40→23:17)
[2021-12-10] MEDS: Normal Saline Flush 10 ML SYR IVP ×3 (11:41→23:17)
[2021-12-10] MEDS: Fluconazole 100 MG TAB 200 MG PO (15:52)
[2021-12-10] MEDS: cefTRIAXone 2 GM/50 ML BAG IVPB (18:09)
[2021-12-10] MEDS: Mirtazapine 15 MG TAB 30 MG PO (21:15)
[2021-12-10] MEDS: LORazepam 1 MG TAB PO (21:15)
[2021-12-11] MEDS: Senna TAB 2 TAB PO ×2 (08:56→19:39)
[2021-12-11] MEDS: Polyethylene Glycol 3350 17 GM PACKET PO (08:56)
[2021-12-11] MEDS: Pantoprazole 40 MG TABCR PO (08:56)
[2021-12-11] MEDS: Protein Nutritional Supplement 16 GM 1 OUNCE PACKET PO ×3 (08:56→19:38)
[2021-12-11] MEDS: Mirabegron 25 MG TABCR PO (08:56)
[2021-12-11] MEDS: diazePAM 2 MG TAB PO ×3 (08:56→19:40)
[2021-12-11] MEDS: Magnesium Chloride 64 MG TABCR 128 MG PO ×2 (08:56→19:39)
[2021-12-11] MEDS: Cholecalciferol (Vitamin D3) 1,000 UNIT TAB 1000 UNITS PO (08:56)
[2021-12-11] MEDS: guaiFENesin 600 MG TABCR PO ×2 (08:56→19:39)
[2021-12-11] MEDS: Docusate Sodium 100 MG CAP PO ×3 (08:56→19:39)
[2021-12-11] MEDS: Multivitamin TAB 1 TAB PO (08:56)
[2021-12-11] MEDS: DULoxetine 30 MG CAP 60 MG PO (08:57)
[2021-12-11] MEDS: Ascorbic Acid 500 MG TAB PO ×2 (08:57→19:40)
[2021-12-11] MEDS: Lactobacillus Acidophilus CAP 1 CAP PO ×3 (08:57→19:40)
[2021-12-11] MEDS: Enoxaparin 40 MG/0.4 ML SYR SC (10:53)
[2021-12-11 11:36] LABS: CREATININE 0.6 mg/dL (0.70-1.30)
[2021-12-11 11:42] LABS: Vancomycin, Trough 15.8 ug/mL (10.0-20.0)
[2021-12-11] MEDS: VANCOMYCIN/WATER (PEG) 1.25 GM/250 ML BAG IV ×2 (12:28→23:18)
[2021-12-11] MEDS: Normal Saline Flush 10 ML SYR IVP ×4 (12:28→23:20)
--- NOTE | 2021-12-11 14:47 | CMPROGNOTE_ITS ---
- If Service Date Differs Date of service: 12/11/21 Time of Service: 14:48 Care Management Progress Note S/O: Favio was sitting up in bed when CM met with him. He remains in good spirits since learning that he will be able to go to an [facility] home in [place] soon. [facility], the [facility] supervisory agency, has still not received the final approval paperwork from the [facility]. Once that is received, it is anticipated that the process will go quickly. The plan remains for Favio to complete his 6 weeks if IVAB in the A[facility] home. Cary, the home care provider, has agreed to assume that responsibility. A: Favio is a 56 year old man admitted on 09/01/21 with a UTI P: Favio will likely be transferred to an [facility] home and will complete his IVAB course there. There is a home in [facility] with a provider who has accepted Favio as a client. Her name is Cary Ahumada . Final paperwork with and approval from the [facility] pending. Transfer anticipated within the next week to 10 days. CM coordinating the ordering of hospital bed and christa lift with [facility] and [facility] [place] on Aging. CM will continue to support Favio and assess for ongoing discharge planning needs.
--- NOTE | 2021-12-11 14:57 | PDOC.CMACT ---
- If Service Date Differs Date of service: 12/11/21 Time of Service: 14:57 Care Management Activity Note S/O: Favio continues to engage with friends and family on his Ipad and by phone. He has also been communicating with Cary Elias, his prospective [facility] home provider, on a regular basis via phone. His parents come to visit often and some of his friends and other relatives do as well. Favio was getting up in his motorized wheelchair frequently but has not done so for the past week or so as he was not feeling well. Favio has been enjoying watching sports on tv, particularly the [employer] playoffs. Favio would enjoy music and pet therapy if they became available again. He was provided with some art supplies including a drawing pad, markers, and paint sticks with which to draw. These are items he expressed interest in, however he has not used them as yet. CM visits with Favio on a regular basis and staff have been spending extra time with him. A: Favio is a 56 year old man admitted on 09/01/21 with a UTI P: Favio has been accepted into an [facility] home in [place]. Meetings were held with the home care provider (Cary Ahumada) and she has accepted him as a client. Final paperwork with [facility] pending with transfer anticipated for next week. CM coordinating the ordering of medical equipment such as hospital bed and christa lift with [facility]. CM will continue to support Favio in his transition back to the community.
[2021-12-11] MEDS: Fluconazole 100 MG TAB 200 MG PO (15:07)
[2021-12-11 15:12] VITALS: BP 124/76; PULSE 89; RESP 17; TEMP 36.6; O2SAT 95
[2021-12-11] MEDS: cefTRIAXone 2 GM/50 ML BAG IVPB (18:15)
[2021-12-11] MEDS: Mirtazapine 15 MG TAB 30 MG PO (19:39)
[2021-12-11] MEDS: LORazepam 1 MG TAB PO (19:40)
[2021-12-12 07:06] LABS: Platelet Count 217 10^3/uL (130-400)
[2021-12-12] MEDS: DULoxetine 30 MG CAP 60 MG PO (10:49)
[2021-12-12] MEDS: Pantoprazole 40 MG TABCR PO (10:50)
[2021-12-12] MEDS: Ascorbic Acid 500 MG TAB PO ×2 (10:50→20:29)
[2021-12-12] MEDS: Docusate Sodium 100 MG CAP PO ×3 (10:50→20:30)
[2021-12-12] MEDS: Lactobacillus Acidophilus CAP 1 CAP PO ×3 (10:50→20:30)
[2021-12-12] MEDS: Senna TAB 2 TAB PO ×2 (10:51→20:31)
[2021-12-12] MEDS: Magnesium Chloride 64 MG TABCR 128 MG PO ×2 (10:52→20:30)
[2021-12-12] MEDS: Multivitamin TAB 1 TAB PO (10:53)
[2021-12-12] MEDS: Mirabegron 25 MG TABCR PO (10:53)
[2021-12-12] MEDS: guaiFENesin 600 MG TABCR PO ×2 (10:53→20:30)
[2021-12-12] MEDS: Cholecalciferol (Vitamin D3) 1,000 UNIT TAB 1000 UNITS PO (10:53)
[2021-12-12] MEDS: diazePAM 2 MG TAB PO ×3 (10:53→20:30)
[2021-12-12] MEDS: Enoxaparin 40 MG/0.4 ML SYR SC (10:54)
[2021-12-12] MEDS: Protein Nutritional Supplement 16 GM 1 OUNCE PACKET PO ×3 (10:54→20:31)
[2021-12-12] MEDS: Polyethylene Glycol 3350 17 GM PACKET PO (10:54)
[2021-12-12 11:27] VITALS: BP 92/59; PULSE 94; RESP 17; TEMP 36.4; O2SAT 95
[2021-12-12] MEDS: VANCOMYCIN/WATER (PEG) 1.25 GM/250 ML BAG IV (12:05)
[2021-12-12] MEDS: Fluconazole 100 MG TAB 200 MG PO (15:37)
[2021-12-12 16:02] LABS: Abs Immature Grans 0.04 10^3/uL (0.0-0.06); Absolute Basophil Count 0.04 10^3/uL (0.0-0.2); Absolute Eosinophil Count 0.47 10^3/uL (0.0-0.7); Absolute Lymphocyte Count 1.61 10^3/uL (1.2-3.4); Absolute Monocyte Count 0.55 10^3/uL (0.1-0.8); Absolute Neutrophil Count 5.66 10^3/uL (1.2-6.7); Basophils % 0.5; Eosinophils % 5.6; HCT 38.4 % (40.0-50.0); HGB 12.2 g/dL (13.5-17.5); Immature Grans % 0.5; Lymphocytes % 19.2; MCH 28.6 pg (27.0-33.0); MCHC 31.8 % (32.0-36.0); MCV 90.1 fL (80-95); MPV 9.8 fL (8.0-11.0); Monocytes % 6.6; Neutrophils % 67.6; Nucleated RBC 0 %; Platelet Count 220 10^3/uL (130-400); RBC 4.26 10^6/uL (4.36-5.78); RDW 14.5 % (11.8-14.1); RDW-SD 47.5 fL; WBC 8.37 10^3/uL (4.4-10.8)
[2021-12-12 16:12] LABS: Uric Acid 4.2 mg/dL (3.5-7.2)
[2021-12-12] MEDS: cefTRIAXone 2 GM/50 ML BAG IVPB (18:38)
[2021-12-12] MEDS: Mirtazapine 15 MG TAB 30 MG PO (20:29)
[2021-12-12] MEDS: LORazepam 1 MG TAB PO (20:30)
[2021-12-13] MEDS: VANCOMYCIN/WATER (PEG) 1.25 GM/250 ML BAG IV ×3 (00:17→23:23)
[2021-12-13] MEDS: Pantoprazole 40 MG TABCR PO (11:14)
[2021-12-13] MEDS: DULoxetine 30 MG CAP 60 MG PO (11:14)
[2021-12-13] MEDS: diazePAM 2 MG TAB PO ×3 (11:15→20:39)
[2021-12-13] MEDS: Multivitamin TAB 1 TAB PO (11:15)
[2021-12-13] MEDS: Docusate Sodium 100 MG CAP PO ×3 (11:15→20:38)
[2021-12-13] MEDS: Senna TAB 2 TAB PO ×2 (11:16→20:38)
[2021-12-13] MEDS: Magnesium Chloride 64 MG TABCR 128 MG PO ×2 (11:16→20:39)
[2021-12-13] MEDS: Mirabegron 25 MG TABCR PO (11:16)
[2021-12-13] MEDS: Ascorbic Acid 500 MG TAB PO ×2 (11:17→20:38)
[2021-12-13] MEDS: guaiFENesin 600 MG TABCR PO ×2 (11:17→20:38)
[2021-12-13] MEDS: Protein Nutritional Supplement 16 GM 1 OUNCE PACKET PO ×3 (11:17→20:39)
[2021-12-13] MEDS: Cholecalciferol (Vitamin D3) 1,000 UNIT TAB 1000 UNITS PO (11:17)
[2021-12-13] MEDS: Polyethylene Glycol 3350 17 GM PACKET PO (11:17)
[2021-12-13] MEDS: Hydrocortisone 1% CR 30 GM TUBE TP (11:18)
[2021-12-13] MEDS: Enoxaparin 40 MG/0.4 ML SYR SC (11:18)
[2021-12-13] MEDS: Lactobacillus Acidophilus CAP 1 CAP PO ×3 (11:19→20:38)
[2021-12-13 11:29] LABS: CREATININE 0.7 mg/dL (0.70-1.30); Vancomycin, Trough 15.8 ug/mL (10.0-20.0)
--- NOTE | 2021-12-13 14:27 | CHAPLAIN ---
Favio is looking forward to the paperwork to be finalized to he can move into the [facility] home were he's been accepted. He's been here for many months and is looking forward to leaving the hospital. He's been talking with Cary, the director of scout work of intermediate, and he said he's been getting to know her. [place] [facility]. Favio said there is likely a good view. Favio continues to watch movies on his iPad and be in touch with family and friends on his phone.
[2021-12-13 15:33] VITALS: BP 104/69; PULSE 89; RESP 16; TEMP 37.3; O2SAT 95
[2021-12-13] MEDS: Normal Saline Flush 10 ML SYR IVP (15:43)
[2021-12-13] MEDS: Fluconazole 100 MG TAB 200 MG PO (15:43)
[2021-12-13] MEDS: cefTRIAXone 2 GM/50 ML BAG IVPB (18:19)
[2021-12-13] MEDS: Mirtazapine 15 MG TAB 30 MG PO (20:38)
[2021-12-13] MEDS: LORazepam 1 MG TAB PO (20:38)
[2021-12-14 09:59] LABS: Abs Immature Grans 0.03 10^3/uL (0.0-0.06); Absolute Basophil Count 0.04 10^3/uL (0.0-0.2); Absolute Lymphocyte Count 1.26 10^3/uL (1.2-3.4); Absolute Neutrophil Count 4.45 10^3/uL (1.2-6.7); Basophils % 0.6; HCT 38.6 % (40.0-50.0); HGB 12.1 g/dL (13.5-17.5); Immature Grans % 0.4; Lymphocytes % 18.9; MCH 28.1 pg (27.0-33.0); MCHC 31.3 % (32.0-36.0); MCV 89.6 fL (80-95); MPV 10.1 fL (8.0-11.0); Monocytes % 7.5; Neutrophils % 66.6; Nucleated RBC 0 %; Platelet Count 215 10^3/uL (130-400); RBC 4.31 10^6/uL (4.36-5.78); RDW 14.1 % (11.8-14.1); RDW-SD 46.5 fL; WBC 6.68 10^3/uL (4.4-10.8)
[2021-12-14 10:10] LABS: Anion Gap 6.4 mmol/L (3-11); BUN 19 mg/dL (7-18); C-Reactive Protein 5.74 mg/dL (0.0-0.3); CO2 24.6 mmol/L (21.0-32.0); CREATININE 0.6 mg/dL (0.70-1.30); Calcium 9.1 mg/dL (8.5-10.1); Chloride 108 mmol/L (98-107); Glucose 102 mg/dL (74-106); Magnesium 1.9 mg/dL (1.8-2.4); Potassium 3.9 mmol/L (3.5-5.1); Sodium 139 mmol/L (136-145)
[2021-12-14 10:20] VITALS: BP 170/97; PULSE 70; RESP 18; TEMP 36; O2SAT 96
[2021-12-14] MEDS: Docusate Sodium 100 MG CAP PO ×3 (11:01→20:14)
[2021-12-14] MEDS: Senna TAB 2 TAB PO ×2 (11:01→20:14)
[2021-12-14] MEDS: Polyethylene Glycol 3350 17 GM PACKET PO (11:01)
[2021-12-14] MEDS: Enoxaparin 40 MG/0.4 ML SYR SC (11:01)
[2021-12-14] MEDS: guaiFENesin 600 MG TABCR PO ×2 (11:01→20:15)
[2021-12-14] MEDS: Protein Nutritional Supplement 16 GM 1 OUNCE PACKET PO ×3 (11:02→20:14)
[2021-12-14] MEDS: Lactobacillus Acidophilus CAP 1 CAP PO ×3 (11:03→20:14)
[2021-12-14] MEDS: DULoxetine 30 MG CAP 60 MG PO (11:03)
[2021-12-14] MEDS: Cholecalciferol (Vitamin D3) 1,000 UNIT TAB 1000 UNITS PO (11:03)
[2021-12-14] MEDS: Mirabegron 25 MG TABCR PO (11:03)
[2021-12-14] MEDS: Multivitamin TAB 1 TAB PO (11:03)
[2021-12-14] MEDS: Magnesium Chloride 64 MG TABCR 128 MG PO ×2 (11:03→20:14)
[2021-12-14] MEDS: diazePAM 2 MG TAB PO ×3 (11:04→20:15)
[2021-12-14] MEDS: Ascorbic Acid 500 MG TAB PO ×2 (11:04→20:15)
[2021-12-14] MEDS: Pantoprazole 40 MG TABCR PO (11:04)
[2021-12-14] MEDS: Hydrocortisone 1% CR 30 GM TUBE TP ×2 (12:12→20:14)
[2021-12-14] MEDS: VANCOMYCIN/WATER (PEG) 1.25 GM/250 ML BAG IV (12:18)
[2021-12-14] MEDS: Fluconazole 100 MG TAB 200 MG PO (15:17)
--- NOTE | 2021-12-14 16:28 | W.PM.PROGNOT ---
Date of Service Date of service: 12/14/21 Time of Service: 16:28 Assessment and Plan Assessment and plan (1) Osteomyelitis of right foot: Status: Acute Assessment and plan: Continue vancomycin and Rocephin x [address] Silva Qualifiers: Osteomyelitis type: unspecified type Qualified Code(s): M86.9 - Osteomyelitis, unspecified (2) Fungemia: Status: Acute Assessment and plan: The plan is to complete a total of 14 days of fluconazole. (3) Insomnia: Status: Acute Assessment and plan: The patient states that benadryl in addition to ativan used to really help him. We will re-institute benadryl. (4) Neurogenic bladder: Status: Chronic Assessment and plan: S/p suprapubic catheter. Monitor for signs/symptoms of a UTI. (5) Discharge planning issues: Status: Acute Assessment and plan: Care management is addressing a possible disposition; no discharge is expected this weekend. Subjective Subjective Interval history since last seen: Favio reports having difficulty sleeping. Redness on the dorsum of his feet is better today. Denies dizziness, chest pain, shortness of breath, nausea. Discussed with Dr Silva who continues to recommend 6 weeks of IV abx. Exam Narrative Exam Narrative: General: Pleasant middle-aged male who is resting comfortably in bed, A&Ox3 HEENT: EOMI, MMM Heart: not auscultated Lungs: nonlabored breathing Abdomen: soft,nondistended Extremities: B foot drop; R lateral foot is dressed - c/d/i; dorsi of B feet dressed - c/d/i Objective Last Vital Signs Temp 36.0 C L 12/14/21 10:20 Pulse 70 12/14/21 10:20 Resp 18 12/14/21 10:20 BP 170/97 H 12/14/21 10:20 Pulse Ox 96 12/14/21 10:20 Laboratory Results - last 24 hr 12/14/21 12/14/21 09:45 09:45 WBC 6.68 RBC 4.31 L Hgb 12.1 L Hct 38.6 L MCV 89.6 MCH 28.1 MCHC 31.3 L RDW 14.1 Plt Count 215 MPV 10.1 Immature Gran % 0.4 Neutrophils % 66.6 Lymphocytes % 18.9 Monocytes % 7.5 Eosinophils % 6.0 Basophils % 0.6 Nucleated RBC % 0 Absolute Neutrophils 4.45 Absolute Lymphocytes 1.26 Absolute Monocytes 0.50 Absolute Eosinophils 0.40 Absolute Basophils 0.04 Sodium 139 Potassium 3.9 Chloride 108 H Carbon Dioxide 24.6 Anion Gap 6.4 BUN 19 H Creatinine 0.6 L Estimated GFR/1.73 m2 >= 60.00 Glucose 102 Calcium 9.1 Magnesium 1.9 C-Reactive Protein 5.74 H
[2021-12-14] MEDS: cefTRIAXone 2 GM/50 ML BAG IVPB (18:16)
[2021-12-14] MEDS: LORazepam 1 MG TAB PO (20:14)
[2021-12-14] MEDS: Mirtazapine 15 MG TAB 30 MG PO (20:15)
[2021-12-14] MEDS: diphenhydrAMINE 25 MG CAP PO (22:19)
[2021-12-15] MEDS: VANCOMYCIN/WATER (PEG) 1.25 GM/250 ML BAG IV ×2 (00:47→12:11)
[2021-12-15] MEDS: Normal Saline Flush 10 ML SYR IVP ×3 (00:48→17:37)
[2021-12-15] MEDS: diazePAM 2 MG TAB PO ×3 (09:30→19:48)
[2021-12-15] MEDS: Cholecalciferol (Vitamin D3) 1,000 UNIT TAB 1000 UNITS PO (09:30)
[2021-12-15] MEDS: guaiFENesin 600 MG TABCR PO ×2 (09:30→19:48)
[2021-12-15] MEDS: Senna TAB 2 TAB PO ×2 (09:30→19:47)
[2021-12-15] MEDS: Pantoprazole 40 MG TABCR PO (09:30)
[2021-12-15] MEDS: Lactobacillus Acidophilus CAP 1 CAP PO ×3 (09:30→19:48)
[2021-12-15] MEDS: Ascorbic Acid 500 MG TAB PO ×2 (09:30→19:48)
[2021-12-15] MEDS: Mirabegron 25 MG TABCR PO (09:30)
[2021-12-15] MEDS: Multivitamin TAB 1 TAB PO (09:30)
[2021-12-15] MEDS: Magnesium Chloride 64 MG TABCR 128 MG PO ×2 (09:30→19:48)
[2021-12-15] MEDS: Docusate Sodium 100 MG CAP PO ×3 (09:30→19:48)
[2021-12-15] MEDS: DULoxetine 30 MG CAP 60 MG PO (09:30)
[2021-12-15] MEDS: Polyethylene Glycol 3350 17 GM PACKET PO (09:31)
[2021-12-15] MEDS: Protein Nutritional Supplement 16 GM 1 OUNCE PACKET PO ×3 (09:31→19:47)
[2021-12-15] MEDS: Hydrocortisone 1% CR 30 GM TUBE TP ×2 (09:31→19:47)
[2021-12-15 10:17] VITALS: BP 102/67; PULSE 95; RESP 18; TEMP 36.1; O2SAT 93
[2021-12-15] MEDS: Enoxaparin 40 MG/0.4 ML SYR SC (12:11)
[2021-12-15] MEDS: Fluconazole 100 MG TAB 200 MG PO (15:06)
[2021-12-15] MEDS: cefTRIAXone 2 GM/50 ML BAG IVPB (17:37)
[2021-12-15] MEDS: Mirtazapine 15 MG TAB 30 MG PO (19:47)
[2021-12-15] MEDS: LORazepam 1 MG TAB PO (19:48)
[2021-12-15] MEDS: diphenhydrAMINE 25 MG CAP 50 MG PO (22:31)
[2021-12-16] MEDS: VANCOMYCIN/WATER (PEG) 1.25 GM/250 ML BAG IV ×2 (00:40→11:44)
--- NOTE | 2021-12-16 08:20 | W.PALPGNOTE ---
Date of service: 12/16/21 Time of Service: 08:20 Assessment and Plan Assessment and plan (1) Insomnia: Status: Acute (2) Osteomyelitis of right foot: Status: Acute Qualifiers: Osteomyelitis type: unspecified type Qualified Code(s): M86.9 - Osteomyelitis, unspecified (3) Chronic recurrent multifocal osteomyelitis: Status: Chronic (4) Quadriplegia: Status: Chronic Assessment and plan: I will look into the spinal stimulator that he is talking about. The neurosurgeon worked with this Marquis Rushing. It looks like a possibility for the future. Its only been tried on 3 people at this time. Be interesting if Favio could get into some sort of a trial. I think it would give him good focus and hopefully improvement Still pending placement We did talk about coping skills. He is actually doing very well with coping of late. 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 Insomnia doing well with the Benadryl Subjective Subjective Interval history since last seen: Favio is very excited. He learned about some sort of a spinal stimulator that may help people with paraplegia to walk again. He had me watch segment on his phone describing people who had been paralyzed and unable to walk for years now taking steps. He was hoping something like this might help him. He has not yet heard about placement He states his wounds are doing better. Overall he is feeling enthused and more more healthy. Exam Narrative Exam Narrative: He is actually very customer support engineer today his heart is regular good aeration he is using both upper extremities right more than left. Mood is excellent Objective Last Vital Signs Temp 97.0 F L 12/15/21 10:17 Pulse 95 H 12/15/21 10:17 Resp 18 12/15/21 10:17 BP 102/67 12/15/21 10:17 Pulse Ox 93 12/15/21 10:17
[2021-12-16] MEDS: Polyethylene Glycol 3350 17 GM PACKET PO (08:52)
[2021-12-16] MEDS: Protein Nutritional Supplement 16 GM 1 OUNCE PACKET PO ×3 (08:52→19:46)
[2021-12-16] MEDS: Docusate Sodium 100 MG CAP PO ×3 (08:52→19:49)
[2021-12-16] MEDS: Magnesium Chloride 64 MG TABCR 128 MG PO ×2 (08:52→19:49)
[2021-12-16] MEDS: Ascorbic Acid 500 MG TAB PO ×2 (08:53→19:48)
[2021-12-16] MEDS: diazePAM 2 MG TAB PO ×3 (08:53→19:48)
[2021-12-16] MEDS: Cholecalciferol (Vitamin D3) 1,000 UNIT TAB 1000 UNITS PO (08:53)
[2021-12-16] MEDS: Lactobacillus Acidophilus CAP 1 CAP PO ×3 (08:53→19:48)
[2021-12-16] MEDS: Mirabegron 25 MG TABCR PO (08:53)
[2021-12-16] MEDS: Pantoprazole 40 MG TABCR PO (08:53)
[2021-12-16] MEDS: DULoxetine 30 MG CAP 60 MG PO (08:53)
[2021-12-16] MEDS: guaiFENesin 600 MG TABCR PO ×2 (08:53→19:49)
[2021-12-16] MEDS: Multivitamin TAB 1 TAB PO (08:53)
[2021-12-16] MEDS: Senna TAB 2 TAB PO ×2 (08:53→19:47)
[2021-12-16] MEDS: Hydrocortisone 1% CR 30 GM TUBE TP ×2 (08:54→19:53)
--- NOTE | 2021-12-16 09:47 | CMPROGNOTE_ITS ---
- If Service Date Differs Date of service: 12/16/21 Time of Service: 09:47 Care Management Progress Note Placement UPDATES: ALCIDES spoke with Brook Waggoner from [facility]. She is waiting to receive Favio's CASEY back from the State. Brook is going to reach out to the State, CM will reach out to [facility] Thursday. Brook advises that the [facility] home needs a second inspection due to an issue with the stove. Brook shares that the issue has been fixed, and will help facilitate this inspection, which is also handled by the State. Per [facility]: They have Favio's christa, bed and Mattress. They are waiting for the Trapeze. Delivery has not been scheduled. Additional Needs: Favio will need full [facility] services and IV meds. Favio will also need to find someone to transport his motorized chair.
[2021-12-16] MEDS: Enoxaparin 40 MG/0.4 ML SYR SC (10:08)
[2021-12-16] MEDS: Normal Saline Flush 10 ML SYR IVP ×2 (11:44→17:54)
[2021-12-16 11:47] VITALS: BP 101/68; PULSE 92; RESP 16; TEMP 36.9; O2SAT 96
[2021-12-16] MEDS: Fluconazole 100 MG TAB 200 MG PO (15:53)
[2021-12-16] MEDS: cefTRIAXone 2 GM/50 ML BAG IVPB (17:54)
[2021-12-16] MEDS: diphenhydrAMINE 25 MG CAP 50 MG PO (19:47)
[2021-12-16] MEDS: Mirtazapine 15 MG TAB 30 MG PO (19:47)
[2021-12-16] MEDS: LORazepam 1 MG TAB PO (19:49)
[2021-12-17] MEDS: VANCOMYCIN/WATER (PEG) 1.25 GM/250 ML BAG IV ×3 (00:05→23:51)
[2021-12-17] MEDS: Ascorbic Acid 500 MG TAB PO ×2 (10:26→21:03)
[2021-12-17] MEDS: Cholecalciferol (Vitamin D3) 1,000 UNIT TAB 1000 UNITS PO (10:26)
[2021-12-17] MEDS: DULoxetine 30 MG CAP 60 MG PO (10:27)
[2021-12-17] MEDS: diazePAM 2 MG TAB PO ×3 (10:27→21:03)
[2021-12-17] MEDS: Docusate Sodium 100 MG CAP PO ×3 (10:27→21:03)
[2021-12-17] MEDS: Enoxaparin 40 MG/0.4 ML SYR SC (10:28)
[2021-12-17] MEDS: Hydrocortisone 1% CR 30 GM TUBE TP (10:28)
[2021-12-17] MEDS: guaiFENesin 600 MG TABCR PO ×2 (10:28→21:03)
[2021-12-17] MEDS: Mirabegron 25 MG TABCR PO (10:29)
[2021-12-17] MEDS: Lactobacillus Acidophilus CAP 1 CAP PO ×3 (10:29→21:03)
[2021-12-17] MEDS: Magnesium Chloride 64 MG TABCR 128 MG PO ×2 (10:29→21:04)
[2021-12-17] MEDS: Multivitamin TAB 1 TAB PO (10:29)
[2021-12-17] MEDS: Polyethylene Glycol 3350 17 GM PACKET PO (10:30)
[2021-12-17] MEDS: Pantoprazole 40 MG TABCR PO (10:30)
[2021-12-17] MEDS: Protein Nutritional Supplement 16 GM 1 OUNCE PACKET PO ×3 (10:30→21:05)
[2021-12-17] MEDS: Senna TAB 2 TAB PO ×2 (10:31→21:03)
[2021-12-17] MEDS: Normal Saline Flush 10 ML SYR IVP ×4 (11:22→18:10)
[2021-12-17 11:43] LABS: CREATININE 0.7 mg/dL (0.70-1.30)
[2021-12-17 11:49] LABS: Vancomycin, Trough 18.5 ug/mL (10.0-20.0)
[2021-12-17 14:58] VITALS: BP 149/92; PULSE 75; RESP 16; TEMP 36.3; O2SAT 98
[2021-12-17] MEDS: Fluconazole 100 MG TAB 200 MG PO (15:02)
[2021-12-17] MEDS: cefTRIAXone 2 GM/50 ML BAG IVPB (18:09)
[2021-12-17] MEDS: LORazepam 1 MG TAB PO (21:02)
[2021-12-17] MEDS: diphenhydrAMINE 25 MG CAP 50 MG PO (21:04)
[2021-12-17] MEDS: Mirtazapine 15 MG TAB 30 MG PO (21:04)
[2021-12-18] MEDS: Cholecalciferol (Vitamin D3) 1,000 UNIT TAB 1000 UNITS PO (10:09)
[2021-12-18] MEDS: diazePAM 2 MG TAB PO ×3 (10:09→20:52)
[2021-12-18] MEDS: Ascorbic Acid 500 MG TAB PO ×2 (10:09→20:52)
[2021-12-18] MEDS: Docusate Sodium 100 MG CAP PO ×3 (10:10→20:53)
[2021-12-18] MEDS: guaiFENesin 600 MG TABCR PO ×2 (10:11→20:53)
[2021-12-18] MEDS: Lactobacillus Acidophilus CAP 1 CAP PO ×3 (10:11→20:52)
[2021-12-18] MEDS: Enoxaparin 40 MG/0.4 ML SYR SC (10:11)
[2021-12-18] MEDS: DULoxetine 30 MG CAP 60 MG PO (10:11)
[2021-12-18] MEDS: Magnesium Chloride 64 MG TABCR 128 MG PO ×2 (10:12→20:52)
[2021-12-18] MEDS: Pantoprazole 40 MG TABCR PO (10:12)
[2021-12-18] MEDS: Senna TAB 2 TAB PO ×2 (10:12→20:53)
[2021-12-18] MEDS: Protein Nutritional Supplement 16 GM 1 OUNCE PACKET PO ×3 (10:12→20:54)
[2021-12-18] MEDS: Mirabegron 25 MG TABCR PO (10:12)
[2021-12-18] MEDS: Multivitamin TAB 1 TAB PO (10:12)
[2021-12-18] MEDS: Normal Saline 500 ML 80 ML IV (13:22)
[2021-12-18] MEDS: Normal Saline Flush 10 ML SYR IVP ×3 (13:22→17:55)
[2021-12-18] MEDS: VANCOMYCIN/WATER (PEG) 1.25 GM/250 ML BAG IV (13:22)
[2021-12-18] MEDS: Polyethylene Glycol 3350 17 GM PACKET PO (13:22)
[2021-12-18] MEDS: Fluconazole 100 MG TAB 200 MG PO (15:29)
[2021-12-18 15:37] VITALS: BP 130/84; PULSE 89; RESP 18; TEMP 36.1; O2SAT 97
[2021-12-18] MEDS: cefTRIAXone 2 GM/50 ML BAG IVPB (17:55)
[2021-12-18] MEDS: Mirtazapine 15 MG TAB 30 MG PO (20:52)
[2021-12-18] MEDS: diphenhydrAMINE 25 MG CAP 50 MG PO (20:53)
[2021-12-18] MEDS: LORazepam 1 MG TAB PO (20:54)
[2021-12-19] MEDS: VANCOMYCIN/WATER (PEG) 1.25 GM/250 ML BAG IV ×3 (00:17→23:29)
--- NOTE | 2021-12-19 09:58 | CMPROGNOTE_ITS ---
- If Service Date Differs Date of service: 12/19/21 Time of Service: 09:58 Care Management Progress Note S/O: Favio was sitting up in bed when CM met with him. Yesterday he had been informed that he would be responsible for room and board at his [facility] home and the cost would be $800/month. Favio was upset with this information and indicated that he would not be able to afford it. ALCIDES informed Brook Waggoner from [facility] who is working with the [facility] provider. She agreed to meet with Favio to discuss. Brook and ALCIDES met with Favio this afternoon. She informed him that if he was unable to pay the expense, he would not be able to participate in the [facility] program. Favio informed Brook and ALCIDES that last evening he called his daughter who is his DPOA, After discussing the issue, they determined that he would, in fact, be able to pay the room and board charge. Brook was able to share that she was successful in getting the [facility] provider to lower the cost to $700/month. The plan remains for Favio to go to the [facility] home. All equipment has been received at [facility] and delivery will be made on discharge. Home IV antibiotics will be coordinated at the time of discharge. A: Favio is a 56 year old man admitted on 09/01/21 with a UTI P: Favio will likely be transferred to an [facility] home and will complete his IVAB course there. There is a home in [facility] with a provider who has accepted Favio as a client. Her name is Cary Ahumada . Final paperwork with and approval from the [facility] pending. Transfer anticipated within the next week to 10 days. CM coordinating the ordering of hospital bed and christa lift with [facility] and [facility] on Aging. CM will continue to support Favio and assess for ongoing discharge planning needs.
--- NOTE | 2021-12-19 10:01 | PDOC.CMACT ---
- If Service Date Differs Date of service: 12/19/21 Time of Service: 10:01 Care Management Activity Note S/O: Favio continues to engage with friends and family on his Ipad and by phone. He has also been communicating with Cary Elias, his prospective [facility] home provider, on a regular basis via phone. His parents come to visit often and some of his friends and other relatives do as well. Favio has been enjoying watching sports on tv, and enjoyed the [employer] last Thursday. Favio enjoys music and listens to it on his tablet where he also watches movies. CM visits with Favio on a regular basis and staff have been spending extra time with him. A: Favio is a 56 year old man admitted on 09/01/21 with a UTI P: Favio has been accepted into an [facility] home in [place]. Meetings were held with the home care provider (Cary Ahumada) and she has accepted him as a client. Final paperwork with [facility] pending with transfer anticipated for next week. CM coordinating the ordering of medical equipment such as hospital bed and christa lift with [facility]. CM will continue to support Favio in his transition back to the community.
[2021-12-19] MEDS: Ascorbic Acid 500 MG TAB PO ×2 (10:07→20:36)
[2021-12-19] MEDS: diazePAM 2 MG TAB PO ×3 (10:08→20:34)
[2021-12-19] MEDS: Docusate Sodium 100 MG CAP PO ×3 (10:08→20:35)
[2021-12-19] MEDS: DULoxetine 30 MG CAP 60 MG PO (10:08)
[2021-12-19] MEDS: Cholecalciferol (Vitamin D3) 1,000 UNIT TAB 1000 UNITS PO (10:08)
[2021-12-19] MEDS: Enoxaparin 40 MG/0.4 ML SYR SC (10:09)
[2021-12-19] MEDS: guaiFENesin 600 MG TABCR PO ×2 (10:09→20:33)
[2021-12-19] MEDS: Magnesium Chloride 64 MG TABCR 128 MG PO ×2 (10:10→20:34)
[2021-12-19] MEDS: Multivitamin TAB 1 TAB PO (10:10)
[2021-12-19] MEDS: Mirabegron 25 MG TABCR PO (10:10)
[2021-12-19] MEDS: Lactobacillus Acidophilus CAP 1 CAP PO ×3 (10:10→20:35)
[2021-12-19] MEDS: Pantoprazole 40 MG TABCR PO (10:11)
[2021-12-19] MEDS: Protein Nutritional Supplement 16 GM 1 OUNCE PACKET PO ×3 (10:12→20:36)
[2021-12-19] MEDS: Senna TAB 2 TAB PO ×2 (10:12→20:33)
[2021-12-19] MEDS: Polyethylene Glycol 3350 17 GM PACKET PO (10:12)
--- NOTE | 2021-12-19 11:20 | W.NUTRFU ---
Date of service: 12/19/21 Time of Service: 11:20 Nutrition Note NOTE: Favio continues to meet nutrient and fluid needs by mouthy, weight has been stable. Transitioning to community next week to home provider. Will continue to encourage and support for optimal nutritional intake. Time Spent in Nutritional Counseling and Treatment: 0
[2021-12-19] MEDS: Normal Saline Flush 10 ML SYR IVP ×7 (11:22→23:30)
[2021-12-19 11:43] LABS: CREATININE 0.6 mg/dL (0.70-1.30)
[2021-12-19 11:51] LABS: Vancomycin, Trough 18.1 ug/mL (10.0-20.0)
[2021-12-19 14:59] VITALS: BP 135/86; PULSE 74; RESP 17; TEMP 36.3; O2SAT 97
[2021-12-19] MEDS: cefTRIAXone 2 GM/50 ML BAG IVPB (17:31)
[2021-12-19] MEDS: Fluconazole 100 MG TAB 200 MG PO (17:32)
[2021-12-19] MEDS: Mirtazapine 15 MG TAB 30 MG PO (20:33)
[2021-12-19] MEDS: LORazepam 1 MG TAB PO (20:34)
[2021-12-19] MEDS: diphenhydrAMINE 25 MG CAP 50 MG PO (20:35)
[2021-12-19] MEDS: Hydrocortisone 1% CR 30 GM TUBE TP (20:37)
[2021-12-20] MEDS: Polyethylene Glycol 3350 17 GM PACKET PO (10:26)
[2021-12-20] MEDS: Hydrocortisone 1% CR 30 GM TUBE TP ×2 (10:27→21:38)
[2021-12-20] MEDS: Magnesium Chloride 64 MG TABCR 128 MG PO ×2 (10:27→21:35)
[2021-12-20] MEDS: Protein Nutritional Supplement 16 GM 1 OUNCE PACKET PO ×3 (10:27→21:34)
[2021-12-20] MEDS: Normal Saline Flush 10 ML SYR IVP (10:27)
[2021-12-20] MEDS: Ascorbic Acid 500 MG TAB PO ×2 (10:28→21:35)
[2021-12-20] MEDS: Senna TAB 2 TAB PO ×2 (10:28→21:35)
[2021-12-20] MEDS: Docusate Sodium 100 MG CAP PO ×3 (10:28→21:35)
[2021-12-20] MEDS: Cholecalciferol (Vitamin D3) 1,000 UNIT TAB 1000 UNITS PO (10:28)
[2021-12-20] MEDS: Mirabegron 25 MG TABCR PO (10:28)
[2021-12-20] MEDS: guaiFENesin 600 MG TABCR PO ×2 (10:28→21:35)
[2021-12-20] MEDS: Lactobacillus Acidophilus CAP 1 CAP PO ×3 (10:28→21:35)
[2021-12-20] MEDS: Enoxaparin 40 MG/0.4 ML SYR SC (10:29)
[2021-12-20] MEDS: DULoxetine 30 MG CAP 60 MG PO (10:29)
[2021-12-20] MEDS: diazePAM 2 MG TAB PO ×3 (10:29→21:34)
[2021-12-20] MEDS: Pantoprazole 40 MG TABCR PO (10:29)
[2021-12-20] MEDS: Multivitamin TAB 1 TAB PO (10:29)
[2021-12-20 11:25] VITALS: BP 121/81; PULSE 87; RESP 17; TEMP 36.2; O2SAT 98
--- NOTE | 2021-12-20 11:30 | CHAPLAIN ---
I visited Favio this morning while he was waiting to be washed up. We talked about the Super Bowl game and halftime show. Favio told me about the plans underway to move him to an [facility] home in [facility], possibly as early as next week. The [facility] home host is waiting for paperwork from the state to confirm that the final home inspection went well. Favio had wanted to leave the hospital for months now.
[2021-12-20] MEDS: VANCOMYCIN/WATER (PEG) 1.25 GM/250 ML BAG IV ×2 (11:31→23:54)
[2021-12-20] MEDS: Fluconazole 100 MG TAB 200 MG PO (15:54)
[2021-12-20] MEDS: cefTRIAXone 2 GM/50 ML BAG IVPB (17:14)
[2021-12-20] MEDS: Mirtazapine 15 MG TAB 30 MG PO (21:34)
[2021-12-20] MEDS: LORazepam 1 MG TAB PO (21:34)
[2021-12-20] MEDS: diphenhydrAMINE 25 MG CAP 50 MG PO (21:35)
[2021-12-21] MEDS: Enoxaparin 40 MG/0.4 ML SYR SC (11:05)
[2021-12-21] MEDS: Hydrocortisone 1% CR 30 GM TUBE TP ×2 (11:06→20:24)
[2021-12-21] MEDS: Senna TAB 2 TAB PO ×2 (11:06→20:25)
[2021-12-21] MEDS: Mirabegron 25 MG TABCR PO (11:06)
[2021-12-21] MEDS: Cholecalciferol (Vitamin D3) 1,000 UNIT TAB 1000 UNITS PO (11:06)
[2021-12-21] MEDS: Polyethylene Glycol 3350 17 GM PACKET PO (11:06)
[2021-12-21] MEDS: Protein Nutritional Supplement 16 GM 1 OUNCE PACKET PO ×3 (11:06→20:25)
[2021-12-21] MEDS: Multivitamin TAB 1 TAB PO (11:06)
[2021-12-21] MEDS: guaiFENesin 600 MG TABCR PO (11:06)
[2021-12-21] MEDS: Docusate Sodium 100 MG CAP PO ×3 (11:06→20:25)
[2021-12-21] MEDS: Magnesium Chloride 64 MG TABCR 128 MG PO ×2 (11:06→20:24)
[2021-12-21] MEDS: Pantoprazole 40 MG TABCR PO (11:07)
[2021-12-21] MEDS: DULoxetine 30 MG CAP 60 MG PO (11:07)
[2021-12-21] MEDS: Ascorbic Acid 500 MG TAB PO ×2 (11:07→20:25)
[2021-12-21] MEDS: diazePAM 2 MG TAB PO ×3 (11:07→20:25)
[2021-12-21] MEDS: Lactobacillus Acidophilus CAP 1 CAP PO ×3 (11:07→20:25)
[2021-12-21] MEDS: Normal Saline Flush 10 ML SYR IVP (11:08)
[2021-12-21 11:23] VITALS: BP 110/72; PULSE 83; RESP 18; TEMP 36.3; O2SAT 95
[2021-12-21] MEDS: VANCOMYCIN/WATER (PEG) 1.25 GM/250 ML BAG IV (12:20)
[2021-12-21] MEDS: cefTRIAXone 2 GM/50 ML BAG IVPB (18:24)
[2021-12-21] MEDS: Normal Saline 500 ML 30 ML IV (18:25)
[2021-12-21] MEDS: diphenhydrAMINE 25 MG CAP 50 MG PO (20:24)
[2021-12-21] MEDS: LORazepam 1 MG TAB PO (20:25)
[2021-12-21] MEDS: Mirtazapine 15 MG TAB 30 MG PO (20:25)
[2021-12-22] MEDS: Normal Saline Flush 10 ML SYR IVP ×3 (01:05→17:38)
[2021-12-22] MEDS: VANCOMYCIN/WATER (PEG) 1.25 GM/250 ML BAG IV ×2 (01:05→12:01)
[2021-12-22] MEDS: Protein Nutritional Supplement 16 GM 1 OUNCE PACKET PO ×3 (09:07→19:52)
[2021-12-22] MEDS: Pantoprazole 40 MG TABCR PO (09:07)
[2021-12-22] MEDS: Polyethylene Glycol 3350 17 GM PACKET PO (09:07)
[2021-12-22] MEDS: Senna TAB 2 TAB PO ×2 (09:08→19:53)
[2021-12-22] MEDS: Magnesium Chloride 64 MG TABCR 128 MG PO ×2 (09:08→19:53)
[2021-12-22] MEDS: Hydrocortisone 1% CR 30 GM TUBE TP ×2 (09:08→19:52)
[2021-12-22] MEDS: DULoxetine 30 MG CAP 60 MG PO (09:08)
[2021-12-22] MEDS: diazePAM 2 MG TAB PO ×3 (09:08→19:53)
[2021-12-22] MEDS: Ascorbic Acid 500 MG TAB PO ×2 (09:08→19:53)
[2021-12-22] MEDS: Lactobacillus Acidophilus CAP 1 CAP PO ×3 (09:08→19:53)
[2021-12-22] MEDS: Multivitamin TAB 1 TAB PO (09:08)
[2021-12-22] MEDS: Cholecalciferol (Vitamin D3) 1,000 UNIT TAB 1000 UNITS PO (09:08)
[2021-12-22] MEDS: Mirabegron 25 MG TABCR PO (09:08)
[2021-12-22] MEDS: Docusate Sodium 100 MG CAP PO ×3 (09:08→19:53)
[2021-12-22] MEDS: Enoxaparin 40 MG/0.4 ML SYR SC (11:22)
[2021-12-22 11:38] LABS: CREATININE 0.6 mg/dL (0.70-1.30); Vancomycin, Trough 17.5 ug/mL (10.0-20.0)
[2021-12-22 11:43] VITALS: BP 118/79; PULSE 70; RESP 15; TEMP 36.5; O2SAT 97
--- NOTE | 2021-12-22 15:37 | W.PM.PROGNOT ---
Date of Service Date of service: 12/22/21 Time of Service: 15:37 Assessment and Plan Assessment and plan (1) Osteomyelitis of right foot: Status: Acute Assessment and plan: continuing Rocephin and Vancomycin for osteomyelitis of his right 5th metatarsal which has been resected. He has through January 08 for completion of 6 weeks of antibiotics Qualifiers: Osteomyelitis type: unspecified type Qualified Code(s): M86.9 - Osteomyelitis, unspecified (2) Yeast UTI: Status: Resolved Assessment and plan: patient is no longer on diflucan. he has had hx of fungemia and due to his chronic antibiotic treatment, he is at risk for recurrent fungal infection. (3) Major depressive disorder: Status: Chronic Assessment and plan: controlled on current antidepressants (duloxetine and remeron) Qualifiers: Major depression recurrence: single episode Active/Remission status: currently active Major depression episode severity: moderate Qualified Code(s): F32.1 - Major depressive disorder, single episode, moderate (4) Neurogenic bladder: Status: Chronic Assessment and plan: patient has suprapubic catheter which is changed monthly (5) Neurogenic bowel: Status: Acute Assessment and plan: patient is on a bowel regimen (6) Quadriplegia: Status: Chronic (7) Discharge planning issues: Status: Acute Assessment and plan: per CM they are awaiting on letter from [facility] indicating coverage of his care by [facility] home in [place], anticipated later this week. Subjective Subjective Interval history since last seen: Patient has no acute complaints. He is visiting w/ his children's mother. Exam Narrative Exam Narrative: Favio is sitting up in bed, talking w/ his children's mother. Lungs: clear Heart: RRR Abdomen: soft, nontender, nondistende Lower extremities: no edema; right foot is bandaged; I did not remove the bandages as he is scheduled to have them changed tomorrow. Instead I have asked nursing to call me tomorrow when his bandage is changed Objective Last Vital Signs Temp 36.5 C 12/22/21 11:43 Pulse 70 12/22/21 11:43 Resp 15 12/22/21 11:43 BP 118/79 12/22/21 11:43 Pulse Ox 97 12/22/21 11:43 Laboratory Results - last 24 hr 12/22/21 11:15 Creatinine 0.6 L Estimated GFR/1.73 m2 >= 60.00 Vancomycin Trough 17.5
[2021-12-22] MEDS: cefTRIAXone 2 GM/50 ML BAG IVPB (17:38)
[2021-12-22] MEDS: Mirtazapine 15 MG TAB 30 MG PO (19:53)
[2021-12-22] MEDS: LORazepam 1 MG TAB PO (19:53)
[2021-12-22] MEDS: diphenhydrAMINE 25 MG CAP 50 MG PO (19:53)
[2021-12-23] MEDS: VANCOMYCIN/WATER (PEG) 1.25 GM/250 ML BAG IV ×3 (00:19→23:06)
[2021-12-23] MEDS: Normal Saline Flush 10 ML SYR IVP ×3 (00:20→23:07)
--- NOTE | 2021-12-23 08:00 | PCPN_ITS ---
Date of service: 12/23/21 Time of Service: 08:00 Assessment and Plan Assessment and plan (1) Insomnia: Status: Acute Assessment and plan: Hopeful his move to a community senior care improves his ability to sleep. DOesn't want a change in his meds at this time (2) Major depressive disorder: Status: Chronic Assessment and plan: stable Qualifiers: Major depression recurrence: single episode Active/Remission status: currently active Major depression episode severity: moderate Qualified Code(s): F32.1 - Major depressive disorder, single episode, moderate (3) Quadriplegia: Status: Chronic (4) Palliative care encounter: Status: Acute Assessment and plan: He would like to get his covid booster. I relayed this to the hospitalist. We have talked about the future and different scenarios. He does not want to return to the hospital. Hopefully he does well at his new home. He knows he can contact me if he has future palliative needs. I plan to see him in about 3 months Subjective Subjective Interval history since last seen: Looking forward to transferring to a community senior care soon. He is understandably tired of living in the hospital. He is hopeful his wounds will continue to improve. Receiving antibotics. Tolerating them well Insomnia a problem, but hopeful when he gets settled in his new home that his inomia improves. Mood is better with anticipation of the move Exam Narrative Exam Narrative: Lying in bed working on his ipad. Speaking in complete sentences. Appears comfortable. Lungs clear. Heart regular. I did not examine his wounds today Objective Last Vital Signs Temp 97.7 F 12/22/21 11:43 Pulse 70 12/22/21 11:43 Resp 15 12/22/21 11:43 BP 118/79 12/22/21 11:43 Pulse Ox 97 12/22/21 11:43 Laboratory Results - last 24 hr 12/22/21 11:15 Creatinine 0.6 L Estimated GFR/1.73 m2 >= 60.00 Vancomycin Trough 17.5
[2021-12-23] MEDS: Polyethylene Glycol 3350 17 GM PACKET PO (08:32)
[2021-12-23] MEDS: Protein Nutritional Supplement 16 GM 1 OUNCE PACKET PO ×3 (08:32→20:47)
[2021-12-23] MEDS: Hydrocortisone 1% CR 30 GM TUBE TP ×2 (08:32→20:50)
[2021-12-23] MEDS: Ascorbic Acid 500 MG TAB PO ×2 (08:33→20:47)
[2021-12-23] MEDS: Magnesium Chloride 64 MG TABCR 128 MG PO ×2 (08:33→20:49)
[2021-12-23] MEDS: Lactobacillus Acidophilus CAP 1 CAP PO ×3 (08:33→20:50)
[2021-12-23] MEDS: Pantoprazole 40 MG TABCR PO (08:33)
[2021-12-23] MEDS: Multivitamin TAB 1 TAB PO (08:33)
[2021-12-23] MEDS: Mirabegron 25 MG TABCR PO (08:33)
[2021-12-23] MEDS: Senna TAB 2 TAB PO ×2 (08:33→20:49)
[2021-12-23] MEDS: Docusate Sodium 100 MG CAP PO ×3 (08:33→20:47)
[2021-12-23] MEDS: DULoxetine 30 MG CAP 60 MG PO (08:34)
[2021-12-23] MEDS: diazePAM 2 MG TAB PO ×3 (08:34→20:48)
[2021-12-23] MEDS: Cholecalciferol (Vitamin D3) 1,000 UNIT TAB 1000 UNITS PO (08:35)
[2021-12-23] MEDS: Enoxaparin 40 MG/0.4 ML SYR SC (10:52)
[2021-12-23] MEDS: cefTRIAXone 2 GM/50 ML BAG IVPB (17:35)
--- NOTE | 2021-12-23 18:10 | W.PM.PROGNOT ---
Date of Service Date of service: 12/23/21 Time of Service: 13:45 Assessment and Plan Assessment and plan (1) Osteomyelitis of right foot: Status: Acute Assessment and plan: continue Rocephin and Vancomycin through 01/08/22. plan for dc to family assisted later this week. continue mepilex dressing changes. Qualifiers: Osteomyelitis type: unspecified type Qualified Code(s): M86.9 - Osteomyelitis, unspecified (2) Acute osteomyelitis of sacrum: Status: Chronic Assessment and plan: continue mepilex dressing changes. sacral osteomyelitis seems to be responding to antibiotics in addition to wound dressing changes. I suggest that he stay on lifetime suppressive antibiotics once he has completed his iv vancomycin and rocephin. I would opt for oral Bactrim DS. Subjective Subjective Interval history since last seen: No new concerns. I saw the patient for the second day in a row so that I could look at his wound during his dressing changes Exam Narrative Exam Narrative: Sacral wound is now closed over, ischial wounds are nearly completely closed w/ no drainage. Right 5th metatarsal resection site is healing well and closing over completely w/ no drainage, no erythema. No open sores anywhere else on his right foot and none on his left foot Objective Last Vital Signs Temp 36.5 C 12/22/21 11:43 Pulse 70 12/22/21 11:43 Resp 15 12/22/21 11:43 BP 118/79 12/22/21 11:43 Pulse Ox 97 12/22/21 11:43
[2021-12-23] MEDS: diphenhydrAMINE 25 MG CAP 50 MG PO (20:47)
[2021-12-23] MEDS: Mirtazapine 15 MG TAB 30 MG PO (20:48)
[2021-12-23] MEDS: LORazepam 1 MG TAB PO (20:49)
[2021-12-24] MEDS: Polyethylene Glycol 3350 17 GM PACKET PO (08:46)
[2021-12-24] MEDS: Protein Nutritional Supplement 16 GM 1 OUNCE PACKET PO ×3 (08:46→20:24)
[2021-12-24] MEDS: Hydrocortisone 1% CR 30 GM TUBE TP ×2 (08:46→20:24)
[2021-12-24] MEDS: Ascorbic Acid 500 MG TAB PO ×2 (08:47→20:25)
[2021-12-24] MEDS: Pantoprazole 40 MG TABCR PO (08:47)
[2021-12-24] MEDS: Docusate Sodium 100 MG CAP PO ×3 (08:48→20:25)
[2021-12-24] MEDS: diazePAM 2 MG TAB PO ×3 (08:48→20:25)
[2021-12-24] MEDS: DULoxetine 30 MG CAP 60 MG PO (08:48)
[2021-12-24] MEDS: Multivitamin TAB 1 TAB PO (08:48)
[2021-12-24] MEDS: Magnesium Chloride 64 MG TABCR 128 MG PO ×2 (08:48→20:25)
[2021-12-24] MEDS: Cholecalciferol (Vitamin D3) 1,000 UNIT TAB 1000 UNITS PO (08:48)
[2021-12-24] MEDS: Mirabegron 25 MG TABCR PO (08:48)
[2021-12-24] MEDS: Lactobacillus Acidophilus CAP 1 CAP PO ×3 (08:48→20:25)
[2021-12-24] MEDS: Senna TAB 2 TAB PO ×2 (08:48→20:24)
[2021-12-24] MEDS: Enoxaparin 40 MG/0.4 ML SYR SC (10:24)
[2021-12-24] MEDS: VANCOMYCIN/WATER (PEG) 1.25 GM/250 ML BAG IV ×2 (11:41→23:44)
[2021-12-24] MEDS: Normal Saline Flush 10 ML SYR IVP (11:41)
[2021-12-24] MEDS: cefTRIAXone 2 GM/50 ML BAG IVPB (17:23)
[2021-12-24] MEDS: diphenhydrAMINE 25 MG CAP 50 MG PO (20:25)
[2021-12-24] MEDS: LORazepam 1 MG TAB PO (20:25)
[2021-12-24] MEDS: Mirtazapine 15 MG TAB 30 MG PO (20:25)
[2021-12-25] MEDS: Polyethylene Glycol 3350 17 GM PACKET PO (08:42)
[2021-12-25] MEDS: Protein Nutritional Supplement 16 GM 1 OUNCE PACKET PO ×3 (08:42→20:34)
[2021-12-25] MEDS: Pantoprazole 40 MG TABCR PO (08:42)
[2021-12-25] MEDS: DULoxetine 30 MG CAP 60 MG PO (08:42)
[2021-12-25] MEDS: Lactobacillus Acidophilus CAP 1 CAP PO ×3 (08:43→20:31)
[2021-12-25] MEDS: Cholecalciferol (Vitamin D3) 1,000 UNIT TAB 1000 UNITS PO (08:43)
[2021-12-25] MEDS: diazePAM 2 MG TAB PO ×3 (08:43→20:33)
[2021-12-25] MEDS: Senna TAB 2 TAB PO ×2 (08:43→20:32)
[2021-12-25] MEDS: Ascorbic Acid 500 MG TAB PO ×2 (08:43→20:31)
[2021-12-25] MEDS: Mirabegron 25 MG TABCR PO (08:43)
[2021-12-25] MEDS: Docusate Sodium 100 MG CAP PO ×3 (08:43→20:34)
[2021-12-25] MEDS: Multivitamin TAB 1 TAB PO (08:43)
[2021-12-25] MEDS: Magnesium Chloride 64 MG TABCR 128 MG PO ×2 (08:43→20:31)
[2021-12-25] MEDS: Hydrocortisone 1% CR 30 GM TUBE TP ×2 (08:44→20:34)
[2021-12-25] MEDS: Normal Saline Flush 10 ML SYR IVP ×3 (08:44→18:25)
[2021-12-25] MEDS: Enoxaparin 40 MG/0.4 ML SYR SC (09:44)
[2021-12-25 11:15] VITALS: BP 94/60; PULSE 88; RESP 17; TEMP 36; O2SAT 96
[2021-12-25 11:25] LABS: Vancomycin, Trough 14.4 ug/mL (10.0-20.0)
[2021-12-25] MEDS: VANCOMYCIN/WATER (PEG) 1.25 GM/250 ML BAG IV (11:41)
--- NOTE | 2021-12-25 15:44 | WOUNDCONS ---
- If Service Date Differs Date of service: 12/25/21 Time of Service: 15:46 Wound Initial Evaluation Narrative: Per Dr. Olson request He would like an updated set of pictures, this is not an actual wound consult - Photo Photo:
[2021-12-25] MEDS: cefTRIAXone 2 GM/50 ML BAG IVPB (18:24)
[2021-12-25] MEDS: Mirtazapine 15 MG TAB 30 MG PO (20:32)
[2021-12-25] MEDS: diphenhydrAMINE 25 MG CAP 50 MG PO (20:33)
[2021-12-25] MEDS: LORazepam 1 MG TAB PO (20:34)
[2021-12-26] MEDS: Normal Saline Flush 10 ML SYR IVP ×5 (00:20→20:29)
[2021-12-26] MEDS: VANCOMYCIN/WATER (PEG) 1.25 GM/250 ML BAG IV ×2 (00:20→12:26)
[2021-12-26] MEDS: Senna TAB 2 TAB PO ×2 (08:55→20:33)
[2021-12-26] MEDS: Polyethylene Glycol 3350 17 GM PACKET PO (08:55)
[2021-12-26] MEDS: Protein Nutritional Supplement 16 GM 1 OUNCE PACKET PO ×3 (08:55→20:32)
[2021-12-26] MEDS: Pantoprazole 40 MG TABCR PO (08:56)
[2021-12-26] MEDS: DULoxetine 30 MG CAP 60 MG PO (08:56)
[2021-12-26] MEDS: Multivitamin TAB 1 TAB PO (08:56)
[2021-12-26] MEDS: Magnesium Chloride 64 MG TABCR 128 MG PO ×2 (08:56→20:33)
[2021-12-26] MEDS: Docusate Sodium 100 MG CAP PO ×3 (08:56→20:33)
[2021-12-26] MEDS: Mirabegron 25 MG TABCR PO (08:56)
[2021-12-26] MEDS: Cholecalciferol (Vitamin D3) 1,000 UNIT TAB 1000 UNITS PO (08:56)
[2021-12-26] MEDS: Hydrocortisone 1% CR 30 GM TUBE TP ×2 (08:57→20:34)
[2021-12-26] MEDS: diazePAM 2 MG TAB PO ×3 (08:57→20:33)
[2021-12-26] MEDS: Ascorbic Acid 500 MG TAB PO ×2 (08:57→20:34)
[2021-12-26] MEDS: Lactobacillus Acidophilus CAP 1 CAP PO ×3 (08:57→20:34)
[2021-12-26] MEDS: Enoxaparin 40 MG/0.4 ML SYR SC (10:31)
[2021-12-26 11:41] VITALS: BP 109/72; PULSE 72; RESP 16; TEMP 36.6; O2SAT 97
[2021-12-26] MEDS: Normal Saline 500 ML 30 ML IV (18:12)
[2021-12-26] MEDS: cefTRIAXone 2 GM/50 ML BAG IVPB (18:12)
[2021-12-26] MEDS: Mirtazapine 15 MG TAB 30 MG PO (20:33)
[2021-12-26] MEDS: diphenhydrAMINE 25 MG CAP 50 MG PO (20:33)
[2021-12-26] MEDS: LORazepam 1 MG TAB PO (20:33)
[2021-12-27] MEDS: VANCOMYCIN/WATER (PEG) 1.25 GM/250 ML BAG IV ×2 (00:28→12:00)
[2021-12-27] MEDS: Multivitamin TAB 1 TAB PO (09:02)
[2021-12-27] MEDS: Pantoprazole 40 MG TABCR PO (09:02)
[2021-12-27] MEDS: Magnesium Chloride 64 MG TABCR 128 MG PO ×2 (09:02→20:18)
[2021-12-27] MEDS: Mirabegron 25 MG TABCR PO (09:02)
[2021-12-27] MEDS: Polyethylene Glycol 3350 17 GM PACKET PO (09:02)
[2021-12-27] MEDS: Lactobacillus Acidophilus CAP 1 CAP PO ×3 (09:02→20:18)
[2021-12-27] MEDS: Ascorbic Acid 500 MG TAB PO ×2 (09:02→20:18)
[2021-12-27] MEDS: DULoxetine 30 MG CAP 60 MG PO (09:02)
[2021-12-27] MEDS: Docusate Sodium 100 MG CAP PO ×3 (09:02→20:18)
[2021-12-27] MEDS: Protein Nutritional Supplement 16 GM 1 OUNCE PACKET PO ×3 (09:02→20:18)
[2021-12-27] MEDS: diazePAM 2 MG TAB PO ×3 (09:02→20:18)
[2021-12-27] MEDS: Senna TAB 2 TAB PO ×2 (09:03→20:18)
[2021-12-27] MEDS: Cholecalciferol (Vitamin D3) 1,000 UNIT TAB 1000 UNITS PO (09:03)
--- NOTE | 2021-12-27 09:11 | CMPROGNOTE_ITS ---
- If Service Date Differs Date of service: 12/27/21 Time of Service: 09:11 Care Management Progress Note S/O: Favio was sitting up in bed when CM met with him. He appeared sad. When asked, Favio explained that he and his son had had a big argument last night. He shared that his son was disrespectful and hung up on him twice. Favio had tried to call him back but his son did not answer the phone. He shared that his son had texted him a couplke of times but he was still too upset to read the texts. This morning CM received a call from Brook Waggoner from [facility]. She reported that the final approval for the [facility] home has not been received yet. Apparently when the home inspection was done, issues with the entrance were identified and they are requesting that a ramp be installed to facilitate Favio's wheelchair. Since this can not be done until spring, a variance request was submitted late yesterday. Once approval is received, plans for discharge can be implemented. A: Favio is a 56 year old man admitted on 09/01/21 with a UTI P: Favio will likely be transferred to an [facility] home and will complete his IVAB course there. There is a home in [place] with a provider who has accepted Favio as a client. Her name is Cary Ahumada . Final paperwork with and approval from the [facility] pending. Transfer anticipated within the next week to 10 days. CM coordinating the ordering of hospital bed and christa lift with [facility] and [facility] on Aging. CM will continue to support Favio and assess for ongoing discharge planning needs.
--- NOTE | 2021-12-27 09:12 | PDOC.CMACT ---
- If Service Date Differs Date of service: 12/27/21 Time of Service: 09:12 Care Management Activity Note S/O: Favio continues to engage with friends and family on his Ipad and by phone. Staff assisted him with reorganizing his lap tray where he keeps his phone and Ipad to make it easier for him to access both independently. Favio continues to communicate with Cary Elias, his prospective [facility] home provider, on a regular basis via phone. His parents come to visit often and some of his friends and other relatives do as well. . Favio enjoys music and listens to it on his tablet where he also watches movies. CM visits with Favio on a regular basis and staff have been spending extra time with him. A: Favio is a 56 year old man admitted on 09/01/21 with a UTI P: Favio has been accepted into an [facility] home in [place]. Meetings were held with the home care provider (Cary Ahumada) and she has accepted him as a client. Final paperwork with [facility] pending with transfer anticipated for next week. CM coordinating the ordering of medical equipment such as hospital bed and hcrista lift with [facility]. CM will continue to support Favio in his transition back to the community.
[2021-12-27] MEDS: Hydrocortisone 1% CR 30 GM TUBE TP ×2 (10:51→20:19)
[2021-12-27] MEDS: Enoxaparin 40 MG/0.4 ML SYR SC (10:51)
[2021-12-27 14:17] VITALS: BP 150/97; PULSE 86; RESP 18; TEMP 37.2; O2SAT 96
[2021-12-27] MEDS: cefTRIAXone 2 GM/50 ML BAG IVPB (18:13)
[2021-12-27] MEDS: Normal Saline Flush 10 ML SYR IVP (18:14)
[2021-12-27] MEDS: Mirtazapine 15 MG TAB 30 MG PO (20:18)
[2021-12-27] MEDS: diphenhydrAMINE 25 MG CAP 50 MG PO (20:18)
[2021-12-27] MEDS: LORazepam 1 MG TAB PO (20:18)
[2021-12-28] MEDS: Normal Saline Flush 10 ML SYR IVP ×4 (00:57→23:11)
[2021-12-28] MEDS: VANCOMYCIN/WATER (PEG) 1.25 GM/250 ML BAG IV ×3 (00:58→23:11)
[2021-12-28] MEDS: Enoxaparin 40 MG/0.4 ML SYR SC (10:10)
[2021-12-28] MEDS: Polyethylene Glycol 3350 17 GM PACKET PO (10:11)
[2021-12-28] MEDS: Protein Nutritional Supplement 16 GM 1 OUNCE PACKET PO ×3 (10:12→20:06)
[2021-12-28] MEDS: Multivitamin TAB 1 TAB PO (10:13)
[2021-12-28] MEDS: Ascorbic Acid 500 MG TAB PO ×2 (10:13→20:06)
[2021-12-28] MEDS: Docusate Sodium 100 MG CAP PO ×3 (10:13→20:04)
[2021-12-28] MEDS: Cholecalciferol (Vitamin D3) 1,000 UNIT TAB 1000 UNITS PO (10:13)
[2021-12-28] MEDS: DULoxetine 30 MG CAP 60 MG PO (10:14)
[2021-12-28] MEDS: Pantoprazole 40 MG TABCR PO (10:14)
[2021-12-28] MEDS: Mirabegron 25 MG TABCR PO (10:14)
[2021-12-28] MEDS: Magnesium Chloride 64 MG TABCR 128 MG PO ×2 (10:14→20:05)
[2021-12-28] MEDS: diazePAM 2 MG TAB PO ×3 (10:14→20:05)
[2021-12-28] MEDS: Senna TAB 2 TAB PO ×2 (10:15→20:05)
[2021-12-28] MEDS: Lactobacillus Acidophilus CAP 1 CAP PO ×3 (10:15→20:04)
[2021-12-28] MEDS: Hydrocortisone 1% CR 30 GM TUBE TP ×2 (10:16→20:06)
[2021-12-28 11:50] VITALS: BP 114/75; PULSE 73; RESP 16; TEMP 36.5; O2SAT 94
[2021-12-28] MEDS: Normal Saline 500 ML 30 ML IV (12:00)
[2021-12-28] MEDS: cefTRIAXone 2 GM/50 ML BAG IVPB (17:09)
[2021-12-28] MEDS: Mirtazapine 15 MG TAB 30 MG PO (20:04)
[2021-12-28] MEDS: diphenhydrAMINE 25 MG CAP 50 MG PO (20:05)
[2021-12-28] MEDS: LORazepam 1 MG TAB PO (20:06)
[2021-12-29] MEDS: Mirabegron 25 MG TABCR PO (08:52)
[2021-12-29] MEDS: Protein Nutritional Supplement 16 GM 1 OUNCE PACKET PO ×3 (08:52→20:32)
[2021-12-29] MEDS: Cholecalciferol (Vitamin D3) 1,000 UNIT TAB 1000 UNITS PO (08:52)
[2021-12-29] MEDS: Multivitamin TAB 1 TAB PO (08:52)
[2021-12-29] MEDS: diazePAM 2 MG TAB PO ×3 (08:52→20:33)
[2021-12-29] MEDS: Senna TAB 2 TAB PO ×2 (08:52→20:33)
[2021-12-29] MEDS: Polyethylene Glycol 3350 17 GM PACKET PO (08:52)
[2021-12-29] MEDS: DULoxetine 30 MG CAP 60 MG PO (08:52)
[2021-12-29] MEDS: Docusate Sodium 100 MG CAP PO ×3 (08:52→20:33)
[2021-12-29] MEDS: Magnesium Chloride 64 MG TABCR 128 MG PO ×2 (08:52→20:32)
[2021-12-29] MEDS: Ascorbic Acid 500 MG TAB PO ×2 (08:53→20:33)
[2021-12-29] MEDS: Lactobacillus Acidophilus CAP 1 CAP PO ×3 (08:53→20:33)
[2021-12-29] MEDS: Pantoprazole 40 MG TABCR PO (08:53)
[2021-12-29] MEDS: Hydrocortisone 1% CR 30 GM TUBE TP ×2 (08:53→20:34)
[2021-12-29] MEDS: Enoxaparin 40 MG/0.4 ML SYR SC (10:45)
[2021-12-29] MEDS: Normal Saline 500 ML 30 ML IV (12:16)
[2021-12-29] MEDS: Normal Saline Flush 10 ML SYR IVP ×2 (12:16→18:07)
[2021-12-29] MEDS: VANCOMYCIN/WATER (PEG) 1.25 GM/250 ML BAG IV (12:16)
[2021-12-29 13:54] VITALS: BP 120/77; PULSE 73; RESP 17; TEMP 36.4; O2SAT 97
[2021-12-29] MEDS: cefTRIAXone 2 GM/50 ML BAG IVPB (18:06)
[2021-12-29] MEDS: diphenhydrAMINE 25 MG CAP 50 MG PO (20:32)
[2021-12-29] MEDS: LORazepam 1 MG TAB PO (20:33)
[2021-12-29] MEDS: Mirtazapine 15 MG TAB 30 MG PO (20:33)
[2021-12-30] MEDS: VANCOMYCIN/WATER (PEG) 1.25 GM/250 ML BAG IV (00:20)
[2021-12-30] MEDS: Normal Saline Flush 10 ML SYR IVP ×4 (00:22→18:00)
--- NOTE | 2021-12-30 07:59 | W.PALPGNOTE ---
Date of service: 12/30/21 Time of Service: 07:59 Assessment and Plan Assessment and plan (1) Insomnia: Status: Acute Assessment and plan: Continues to be a problem. He is using some Ativan and Benadryl. He is hoping that things normalize when he moved to the community prison (2) Osteomyelitis of right foot: Status: Acute Assessment and plan: His antibiotics will be continued until January 08. Qualifiers: Osteomyelitis type: unspecified type Qualified Code(s): M86.9 - Osteomyelitis, unspecified (3) Decubitus skin ulcer: Status: Acute Qualifiers: Laterality: unspecified laterality Pressure injury location: buttock Pressure injury stage: unstageable Qualified Code(s): L89.300 - Pressure ulcer of unspecified buttock, unstageable (4) Major depressive disorder: Status: Chronic Assessment and plan: Appears stable at this time Qualifiers: Active/Remission status: currently active Major depression episode severity: moderate Major depression recurrence: single episode Qualified Code(s): F32.1 - Major depressive disorder, single episode, moderate (5) Quadriplegia: Status: Chronic (6) Palliative care encounter: Status: Acute Assessment and plan: We did talk about next steps. Specifically when his friend Nevaeh was there we talked about what is going to happen should he become ill again. Initially he refused to come back to the hospital but then understood that it would be unlikely that his community prison would feel comfortable keeping him at home. He also did not want to come back to [facility] but after discussion stated that he would because people know him well here and he is growing very fond of many of the people and staff. He continues to want to be a DNR/DNI. At this time he would want to return to the hospital for care. He feels he is doing very very well and that perhaps there might be breakthroughs in the future regarding spinal cord injury patients. He did relay that one of his friends who is wheelchair-bound because of an accident did come to visit him recently. He was surprised that his friend continued to have muscle spasms even 25 years after his accident. It gave him some perspective on the future. Unfortunately the lead that he gave me for somebody who is doing some breaking research on spinal cord patients did not lead to any viable referral options. We will continue to explore this. I will continue to follow him outpatient and should he return to the hospital inpatient. Subjective Subjective Interval history since last seen: Favio is inpatient with his transfer to the community prison. He is happy that his wounds are healing well. He has not yet received his booster shot but would like to prior to being transferred out of the hospital Exam Narrative Exam Narrative: As always Favio is cooperative and polite. He seemed more aggravated than depressed with his present situation. He is talking in complete sentences. He is not tachycardic. I have reviewed his recent wound pictures. Objective Last Vital Signs Temp 97.5 F L 12/29/21 13:54 Pulse 73 12/29/21 13:54 Resp 17 12/29/21 13:54 BP 120/77 12/29/21 13:54 Pulse Ox 97 12/29/21 13:54 I did review the wound consult's updated pictures
[2021-12-30] MEDS: Polyethylene Glycol 3350 17 GM PACKET PO (08:51)
[2021-12-30] MEDS: Protein Nutritional Supplement 16 GM 1 OUNCE PACKET PO ×3 (08:51→20:50)
[2021-12-30] MEDS: Hydrocortisone 1% CR 30 GM TUBE TP ×2 (08:52→20:51)
[2021-12-30] MEDS: Multivitamin TAB 1 TAB PO (08:53)
[2021-12-30] MEDS: Magnesium Chloride 64 MG TABCR 128 MG PO ×2 (08:53→20:50)
[2021-12-30] MEDS: Cholecalciferol (Vitamin D3) 1,000 UNIT TAB 1000 UNITS PO (08:53)
[2021-12-30] MEDS: Mirabegron 25 MG TABCR PO (08:53)
[2021-12-30] MEDS: DULoxetine 30 MG CAP 60 MG PO (08:53)
[2021-12-30] MEDS: Docusate Sodium 100 MG CAP PO ×3 (08:53→20:51)
[2021-12-30] MEDS: Senna TAB 2 TAB PO ×2 (08:53→20:50)
[2021-12-30] MEDS: diazePAM 2 MG TAB PO ×3 (08:53→20:51)
[2021-12-30] MEDS: Ascorbic Acid 500 MG TAB PO ×2 (08:54→20:50)
[2021-12-30] MEDS: Lactobacillus Acidophilus CAP 1 CAP PO ×3 (08:54→20:51)
[2021-12-30] MEDS: Pantoprazole 40 MG TABCR PO (08:54)
[2021-12-30] MEDS: Enoxaparin 40 MG/0.4 ML SYR SC (10:07)
[2021-12-30] MEDS: Normal Saline 500 ML 30 ML IV (12:18)
[2021-12-30] MEDS: VANCOMYCIN 1,250 MG in Normal Saline 250 ML 166.667 MG IV (12:34)
[2021-12-30 13:32] VITALS: BP 146/90; PULSE 59; RESP 16; TEMP 36.2; O2SAT 96
[2021-12-30] MEDS: cefTRIAXone 2 GM/50 ML BAG IVPB (17:59)
[2021-12-30] MEDS: Mirtazapine 15 MG TAB 30 MG PO (20:50)
[2021-12-30] MEDS: LORazepam 1 MG TAB PO (20:50)
[2021-12-30] MEDS: diphenhydrAMINE 25 MG CAP 50 MG PO (20:50)
[2021-12-31] MEDS: VANCOMYCIN 1,250 MG in Normal Saline 250 ML 167 MG IV ×3 (00:36→23:36)
[2021-12-31] MEDS: Normal Saline Flush 10 ML SYR IVP ×4 (02:05→17:21)
[2021-12-31] MEDS: Protein Nutritional Supplement 16 GM 1 OUNCE PACKET PO ×3 (08:31→20:07)
[2021-12-31] MEDS: Lactobacillus Acidophilus CAP 1 CAP PO ×3 (08:31→20:06)
[2021-12-31] MEDS: Mirabegron 25 MG TABCR PO (08:31)
[2021-12-31] MEDS: Magnesium Chloride 64 MG TABCR 128 MG PO ×2 (08:31→20:06)
[2021-12-31] MEDS: Senna TAB 2 TAB PO ×2 (08:31→20:06)
[2021-12-31] MEDS: Polyethylene Glycol 3350 17 GM PACKET PO (08:31)
[2021-12-31] MEDS: DULoxetine 30 MG CAP 60 MG PO (08:32)
[2021-12-31] MEDS: Cholecalciferol (Vitamin D3) 1,000 UNIT TAB 1000 UNITS PO (08:32)
[2021-12-31] MEDS: Docusate Sodium 100 MG CAP PO ×3 (08:32→20:04)
[2021-12-31] MEDS: Multivitamin TAB 1 TAB PO (08:32)
[2021-12-31] MEDS: diazePAM 2 MG TAB PO ×3 (08:32→20:04)
[2021-12-31] MEDS: Ascorbic Acid 500 MG TAB PO ×2 (08:33→20:04)
[2021-12-31] MEDS: Pantoprazole 40 MG TABCR PO (08:33)
[2021-12-31] MEDS: Hydrocortisone 1% CR 30 GM TUBE TP ×2 (08:34→20:05)
[2021-12-31] MEDS: Enoxaparin 40 MG/0.4 ML SYR SC (10:14)
[2021-12-31 11:36] VITALS: TEMP 36.3
[2021-12-31] MEDS: Acetaminophen 325 MG TAB 650 MG PO (11:36)
[2021-12-31] MEDS: Normal Saline 500 ML 30 ML IV (11:37)
[2021-12-31 11:46] VITALS: BP 109/72; PULSE 65; RESP 16; TEMP 36.3; O2SAT 97
[2021-12-31] MEDS: cefTRIAXone 2 GM/50 ML BAG IVPB (17:21)
[2021-12-31] MEDS: diphenhydrAMINE 25 MG CAP 50 MG PO (20:05)
[2021-12-31] MEDS: LORazepam 1 MG TAB PO (20:05)
[2021-12-31] MEDS: Mirtazapine 15 MG TAB 30 MG PO (20:06)
--- NOTE | 2022-01-01 08:52 | CMACTNOTE_ITS ---
- If Service Date Differs Date of service: 01/01/22 Time of Service: 08:52 Care Management Activity Note S/O: Favio continues to engage with friends and family on his Ipad and by phone. He has begun to get out of bed into his wheelchair again. He was getting up regularly then stopped because he didn't want to be a bother. CM encouraged him to use the wheelchair as it is beneficial for both his mental and physical health. Favio continues to communicate with Cary Elias, his prospective [facility] home provider, on a regular basis via phone. His parents come to visit often and some of his friends and other relatives do as well. . Favio enjoys music and listens to it on his tablet where he also watches movies. CM visits with Favio on a regular basis and staff have been spending extra time with him. A: Favio is a 56 year old man admitted on 09/01/21 with a UTI P: Favio has been accepted into an [facility] home in [place]. Meetings were held with the home care provider (Cary Ahumada) and she has accepted him as a client. Final paperwork with [facility] pending with transfer anticipated for next week. CM coordinating the ordering of medical equipment such as hospital bed and christa lift with [facility]. CM will continue to support Favio in his transition back to the community.
--- NOTE | 2022-01-01 08:52 | PDOC.CMPRO ---
- If Service Date Differs Date of service: 01/01/22 Time of Service: 08:52 Care Management Progress Note S/O: Favio was sitting up in bed when CM met with him. He verbalized being angry and disappointed that the final paperwork for his [facility] home iis taking so long. He had hoped to be there by now. Apparently there was an issue involving an entrance ramp that needs to be constructed. A variance has been requested by [facility], the [facility] home agency, but no response has been received. Favio's IV antibiotic course will be completed soon, however it is not a barrier to discharge. Home infusion services have been secured and can be implemented with very short notice. favio's medical equioment is also ready for delivery from [place]. A: Favio is a 56 year old man admitted on 09/01/21 with a UTI P: Favio will likely be transferred to an [facility] home and will complete his IVAB course there. There is a home in [facility] with a provider who has accepted Favio as a client. Her name is Cary Ahumada . Final paperwork with and approval from the [facility] pending. Transfer anticipated within the next week to 10 days. CM coordinating the ordering of hospital bed and christa lift with [facility] and [facility] [place] [facility]. CM will continue to support Favio and assess for ongoing discharge planning needs.
[2022-01-01] MEDS: Acetaminophen 325 MG TAB 650 MG PO (10:17)
[2022-01-01] MEDS: diazePAM 2 MG TAB PO ×3 (10:18→19:37)
[2022-01-01] MEDS: Ascorbic Acid 500 MG TAB PO ×2 (10:18→19:37)
[2022-01-01] MEDS: Cholecalciferol (Vitamin D3) 1,000 UNIT TAB 1000 UNITS PO (10:18)
[2022-01-01] MEDS: Docusate Sodium 100 MG CAP PO ×3 (10:18→19:37)
[2022-01-01] MEDS: DULoxetine 30 MG CAP 60 MG PO (10:19)
[2022-01-01] MEDS: Enoxaparin 40 MG/0.4 ML SYR SC (10:19)
[2022-01-01] MEDS: Lactobacillus Acidophilus CAP 1 CAP PO ×3 (10:20→19:37)
[2022-01-01] MEDS: Magnesium Chloride 64 MG TABCR 128 MG PO ×2 (10:20→19:37)
[2022-01-01] MEDS: Mirabegron 25 MG TABCR PO (10:21)
[2022-01-01] MEDS: Polyethylene Glycol 3350 17 GM PACKET PO (10:21)
[2022-01-01] MEDS: Multivitamin TAB 1 TAB PO (10:21)
[2022-01-01] MEDS: Pantoprazole 40 MG TABCR PO (10:21)
[2022-01-01] MEDS: Senna TAB 2 TAB PO ×2 (10:22→19:37)
[2022-01-01] MEDS: Protein Nutritional Supplement 16 GM 1 OUNCE PACKET PO ×3 (10:22→19:36)
[2022-01-01 10:45] VITALS: BP 100/67; PULSE 80; RESP 16; TEMP 36.5; O2SAT 94
[2022-01-01] MEDS: Normal Saline Flush 10 ML SYR IVP ×4 (11:59→23:25)
[2022-01-01 12:25] LABS: CREATININE 0.7 mg/dL (0.70-1.30); Vancomycin, Trough 14.6 ug/mL (10.0-20.0)
[2022-01-01] MEDS: VANCOMYCIN 1,250 MG in Normal Saline 250 ML 167 MG IV ×2 (12:43→23:26)
[2022-01-01] MEDS: cefTRIAXone 2 GM/50 ML BAG IVPB (18:01)
[2022-01-01] MEDS: LORazepam 1 MG TAB PO (19:37)
[2022-01-01] MEDS: diphenhydrAMINE 25 MG CAP 50 MG PO (19:37)
[2022-01-01] MEDS: Mirtazapine 15 MG TAB 30 MG PO (19:38)
[2022-01-01] MEDS: Hydrocortisone 1% CR 30 GM TUBE TP (19:38)
[2022-01-02] MEDS: diazePAM 2 MG TAB PO ×3 (10:45→20:06)
[2022-01-02] MEDS: Docusate Sodium 100 MG CAP PO ×3 (10:45→20:05)
[2022-01-02] MEDS: Ascorbic Acid 500 MG TAB PO ×2 (10:45→20:05)
[2022-01-02] MEDS: Cholecalciferol (Vitamin D3) 1,000 UNIT TAB 1000 UNITS PO (10:45)
[2022-01-02] MEDS: Lactobacillus Acidophilus CAP 1 CAP PO ×3 (10:46→20:05)
[2022-01-02] MEDS: Magnesium Chloride 64 MG TABCR 128 MG PO ×2 (10:46→20:05)
[2022-01-02] MEDS: DULoxetine 30 MG CAP 60 MG PO (10:46)
[2022-01-02] MEDS: Enoxaparin 40 MG/0.4 ML SYR SC (10:46)
[2022-01-02] MEDS: Polyethylene Glycol 3350 17 GM PACKET PO (10:47)
[2022-01-02] MEDS: Multivitamin TAB 1 TAB PO (10:47)
[2022-01-02] MEDS: Mirabegron 25 MG TABCR PO (10:47)
[2022-01-02] MEDS: Pantoprazole 40 MG TABCR PO (10:47)
[2022-01-02] MEDS: Senna TAB 2 TAB PO ×2 (10:47→20:05)
[2022-01-02] MEDS: Protein Nutritional Supplement 16 GM 1 OUNCE PACKET PO ×3 (10:48→20:05)
[2022-01-02 11:00] VITALS: BP 132/84; PULSE 76; RESP 17; TEMP 36.9; O2SAT 97
[2022-01-02] MEDS: Normal Saline Flush 10 ML SYR IVP ×3 (12:14→23:22)
[2022-01-02] MEDS: VANCOMYCIN 1,250 MG in Normal Saline 250 ML 167 MG IV ×2 (12:14→23:22)
[2022-01-02] MEDS: cefTRIAXone 2 GM/50 ML BAG IVPB (17:52)
[2022-01-02] MEDS: Mirtazapine 15 MG TAB 30 MG PO (20:05)
[2022-01-02] MEDS: diphenhydrAMINE 25 MG CAP 50 MG PO (20:05)
[2022-01-02] MEDS: LORazepam 1 MG TAB PO (20:05)
[2022-01-02] MEDS: Hydrocortisone 1% CR 30 GM TUBE TP (20:06)
[2022-01-03] MEDS: DULoxetine 30 MG CAP 60 MG PO (10:19)
[2022-01-03] MEDS: Ascorbic Acid 500 MG TAB PO (10:19)
[2022-01-03] MEDS: Docusate Sodium 100 MG CAP PO ×3 (10:19→20:53)
[2022-01-03] MEDS: Cholecalciferol (Vitamin D3) 1,000 UNIT TAB 1000 UNITS PO (10:19)
[2022-01-03] MEDS: diazePAM 2 MG TAB PO ×3 (10:19→20:53)
[2022-01-03] MEDS: Lactobacillus Acidophilus CAP 1 CAP PO ×3 (10:20→20:53)
[2022-01-03] MEDS: Enoxaparin 40 MG/0.4 ML SYR SC (10:20)
[2022-01-03] MEDS: Magnesium Chloride 64 MG TABCR 128 MG PO ×2 (10:20→20:53)
[2022-01-03] MEDS: Multivitamin TAB 1 TAB PO (10:21)
[2022-01-03] MEDS: Senna TAB 2 TAB PO ×2 (10:21→20:52)
[2022-01-03] MEDS: Protein Nutritional Supplement 16 GM 1 OUNCE PACKET PO ×3 (10:21→20:54)
[2022-01-03] MEDS: Mirabegron 25 MG TABCR PO (10:21)
[2022-01-03] MEDS: Polyethylene Glycol 3350 17 GM PACKET PO (10:21)
[2022-01-03] MEDS: Pantoprazole 40 MG TABCR PO (10:21)
--- NOTE | 2022-01-03 10:46 | W.NUTRFU ---
Date of service: 01/03/22 Time of Service: 10:46 Nutrition Note NOTE: Favio continues to meet 100% macronutrient needs by mouth. Will continue to follow and support as needed. Time Spent in Nutritional Counseling and Treatment: 0
[2022-01-03 10:53] VITALS: BP 100/63; PULSE 85; RESP 15; TEMP 35.8; O2SAT 93
[2022-01-03] MEDS: VANCOMYCIN 1,250 MG in Normal Saline 250 ML 167 MG IV ×2 (12:23→23:14)
[2022-01-03] MEDS: Normal Saline Flush 10 ML SYR IVP ×3 (12:23→23:14)
--- NOTE | 2022-01-03 15:34 | W.PM.PROGNOT ---
Date of Service Date of service: 01/03/22 Time of Service: 15:36 Assessment and Plan Assessment and plan (1) Chronic recurrent multifocal osteomyelitis: Status: Chronic Assessment and plan: Significantly improving wounds. Antibiotics IV through 01/08/22. Then, consider Bactrim DS for ongoing treatment. Cont current wound care. (2) Major depressive disorder: Status: Chronic Assessment and plan: currently on Duloxetine which was recently increased to 60 mg daily. He has a psychiatrist with whom he follows although Dr. Alfaro has seen him in the past for tele-psych visit His mood and affect have overall improved. Qualifiers: Major depression recurrence: single episode Active/Remission status: currently active Major depression episode severity: moderate Qualified Code(s): F32.1 - Major depressive disorder, single episode, moderate (3) Quadriplegia: Status: Chronic Assessment and plan: Bed / chair bound. (4) Palliative care encounter: Status: Acute Assessment and plan: Cont ongoing discussion with palliative team. (5) Osteomyelitis of right foot: Status: Acute Assessment and plan: Healing well. Cont current wound care. Qualifiers: Osteomyelitis type: unspecified type Qualified Code(s): M86.9 - Osteomyelitis, unspecified Subjective Subjective Patient reports: no new complaints and afebrile; denies nausea, vomiting or shortness of breath Interval history since last seen: Looking forward to d/c to senior care. Exam Const General: cooperative, no acute distress and other (Sitting in power chair) HENWA Head: atraumatic Ears: hearing grossly normal bilaterally Eyes General: appearance normal, both eyes and all related structures Sclera: sclerae normal Resp Effort & Inspection: normal respiratory effort Auscultation: clear to auscultation bilaterally Cardio Rate: regular rate Rhythm: regular rhythm Heart Sounds: S1 normal and S2 normal GI Inspection: other (ostomy with liquid brown stool in bag. ) Palpation: soft and nontender Skin Rashes: no rashes Wounds: wounds noted (see wound care and nursing notes. ) Extrem General: no pedal edema and no calf tenderness Psych Mental Status: mental status grossly normal Speech and Movement: speech clear Affect: normal affect Objective Last Vital Signs Temp 35.8 C L 01/03/22 10:53 Pulse 85 01/03/22 10:53 Resp 15 01/03/22 10:53 BP 100/63 03/04/22 10:53 Pulse Ox 93 01/03/22 10:53
[2022-01-03] MEDS: cefTRIAXone 2 GM/50 ML BAG IVPB (17:34)
[2022-01-03] MEDS: Mirtazapine 15 MG TAB 30 MG PO (20:53)
[2022-01-03] MEDS: diphenhydrAMINE 25 MG CAP 50 MG PO (20:53)
[2022-01-03] MEDS: LORazepam 1 MG TAB PO (20:53)
[2022-01-03] MEDS: Hydrocortisone 1% CR 30 GM TUBE TP (20:54)
[2022-01-04] MEDS: Senna TAB 2 TAB PO ×2 (09:06→19:29)
[2022-01-04] MEDS: Lactobacillus Acidophilus CAP 1 CAP PO ×3 (09:06→19:29)
[2022-01-04] MEDS: Mirabegron 25 MG TABCR PO (09:06)
[2022-01-04] MEDS: DULoxetine 30 MG CAP 60 MG PO (09:07)
[2022-01-04] MEDS: Magnesium Chloride 64 MG TABCR 128 MG PO ×2 (09:07→19:29)
[2022-01-04] MEDS: Cholecalciferol (Vitamin D3) 1,000 UNIT TAB 1000 UNITS PO (09:07)
[2022-01-04] MEDS: Multivitamin TAB 1 TAB PO (09:07)
[2022-01-04] MEDS: Docusate Sodium 100 MG CAP PO ×3 (09:07→19:30)
[2022-01-04] MEDS: Polyethylene Glycol 3350 17 GM PACKET PO (09:08)
[2022-01-04] MEDS: Hydrocortisone 1% CR 30 GM TUBE TP ×2 (09:08→19:28)
[2022-01-04] MEDS: diazePAM 2 MG TAB PO ×3 (09:08→19:31)
[2022-01-04] MEDS: Pantoprazole 40 MG TABCR PO (09:08)
[2022-01-04] MEDS: Protein Nutritional Supplement 16 GM 1 OUNCE PACKET PO ×3 (09:08→19:28)
[2022-01-04] MEDS: VANCOMYCIN 1,250 MG in Normal Saline 250 ML 167 MG IV ×2 (11:32→23:49)
[2022-01-04] MEDS: Enoxaparin 40 MG/0.4 ML SYR SC (11:40)
[2022-01-04 11:54] VITALS: BP 137/86; PULSE 85; RESP 17; TEMP 36.7; O2SAT 95
[2022-01-04] MEDS: cefTRIAXone 2 GM/50 ML BAG IVPB (17:24)
[2022-01-04] MEDS: Normal Saline Flush 10 ML SYR IVP ×2 (17:24→23:49)
[2022-01-04] MEDS: LORazepam 1 MG TAB PO (19:30)
[2022-01-04] MEDS: diphenhydrAMINE 25 MG CAP 50 MG PO (19:30)
[2022-01-04] MEDS: Mirtazapine 15 MG TAB 30 MG PO (19:30)
[2022-01-05] MEDS: Magnesium Chloride 64 MG TABCR 128 MG PO ×2 (10:19→20:23)
[2022-01-05] MEDS: Senna TAB 2 TAB PO ×2 (10:19→20:24)
[2022-01-05] MEDS: DULoxetine 30 MG CAP 60 MG PO (10:19)
[2022-01-05] MEDS: Cholecalciferol (Vitamin D3) 1,000 UNIT TAB 1000 UNITS PO (10:19)
[2022-01-05] MEDS: Lactobacillus Acidophilus CAP 1 CAP PO ×3 (10:20→20:23)
[2022-01-05] MEDS: Pantoprazole 40 MG TABCR PO (10:20)
[2022-01-05] MEDS: Protein Nutritional Supplement 16 GM 1 OUNCE PACKET PO ×3 (10:20→20:22)
[2022-01-05] MEDS: diazePAM 2 MG TAB PO ×3 (10:20→20:24)
[2022-01-05] MEDS: Docusate Sodium 100 MG CAP PO ×3 (10:20→20:23)
[2022-01-05] MEDS: Multivitamin TAB 1 TAB PO (10:20)
[2022-01-05] MEDS: Mirabegron 25 MG TABCR PO (10:20)
[2022-01-05] MEDS: Polyethylene Glycol 3350 17 GM PACKET PO (10:21)
[2022-01-05] MEDS: Hydrocortisone 1% CR 30 GM TUBE TP ×2 (10:25→20:23)
[2022-01-05] MEDS: Enoxaparin 40 MG/0.4 ML SYR SC (10:41)
[2022-01-05 11:37] VITALS: BP 100/58; PULSE 71; RESP 12; TEMP 35.4; O2SAT 96
[2022-01-05] MEDS: VANCOMYCIN 1,250 MG in Normal Saline 250 ML 167 MG IV (12:56)
[2022-01-05] MEDS: cefTRIAXone 2 GM/50 ML BAG IVPB (17:08)
[2022-01-05] MEDS: Normal Saline Flush 10 ML SYR IVP (17:09)
[2022-01-05] MEDS: LORazepam 1 MG TAB PO (20:22)
[2022-01-05] MEDS: Mirtazapine 15 MG TAB 30 MG PO (20:23)
[2022-01-05] MEDS: diphenhydrAMINE 25 MG CAP 50 MG PO (20:23)
[2022-01-06] MEDS: VANCOMYCIN 1,250 MG in Normal Saline 250 ML 167 MG IV ×3 (00:56→23:58)
--- NOTE | 2022-01-06 08:43 | PCPN_ITS ---
Date of service: 01/06/22 Time of Service: 08:43 Assessment and Plan Assessment and plan (1) Neurogenic bowel: Status: Acute Assessment and plan: Catheter in place (2) Insomnia: Status: Acute Assessment and plan: Stable. He is hoping that it improves when he is in the community skilled nursing He has received his Covid booster Although he is coughing today, he says it is new and secondary to something he had at lunchtime. It does sound productive. Hopefully this will not set him back. (3) Quadriplegia: Status: Chronic Assessment and plan: I am very happy to see that he was in his wheelchair today. Its been several weeks since I have seen him sitting up and I think that it is important for him to do this on a regular basis to maintain the strength that he can. (4) Acute osteomyelitis of sacrum: Status: Chronic Assessment and plan: Stable?healing Osteomyelitis of the foot?he has 2 more days of antibiotics Subjective Subjective Interval history since last seen: Favio is very anxious to move out of the hospital and into the community skilled nursing. There seems to be barriers. He is done with his antibiotics in 2 days. He is getting frustrated by the time is taking for him to move on. Exam Narrative Exam Narrative: Favio is sitting in his electric wheelchair. He is working on his computer. His mood was good. Smiling. Breathing was normal. He is talking in complete sentences but did have some coughing. He blamed it on his sandwich that he had for lunch. Objective Last Vital Signs Temp 95.7 F L 01/05/22 11:37 Pulse 71 01/05/22 11:37 Resp 12 01/05/22 11:37 BP 100/58 L 01/05/22 11:37 Pulse Ox 96 01/05/22 11:37
[2022-01-06] MEDS: Senna TAB 2 TAB PO ×2 (10:18→19:49)
[2022-01-06] MEDS: Cholecalciferol (Vitamin D3) 1,000 UNIT TAB 1000 UNITS PO (10:18)
[2022-01-06] MEDS: Magnesium Chloride 64 MG TABCR 128 MG PO ×2 (10:18→19:48)
[2022-01-06] MEDS: Docusate Sodium 100 MG CAP PO ×3 (10:18→19:49)
[2022-01-06] MEDS: DULoxetine 30 MG CAP 60 MG PO (10:18)
[2022-01-06] MEDS: Mirabegron 25 MG TABCR PO (10:18)
[2022-01-06] MEDS: Multivitamin TAB 1 TAB PO (10:18)
[2022-01-06] MEDS: Polyethylene Glycol 3350 17 GM PACKET PO (10:19)
[2022-01-06] MEDS: diazePAM 2 MG TAB PO ×3 (10:19→19:50)
[2022-01-06] MEDS: Enoxaparin 40 MG/0.4 ML SYR SC (10:19)
[2022-01-06] MEDS: Protein Nutritional Supplement 16 GM 1 OUNCE PACKET PO ×3 (10:19→19:47)
[2022-01-06] MEDS: Pantoprazole 40 MG TABCR PO (10:19)
[2022-01-06] MEDS: Lactobacillus Acidophilus CAP 1 CAP PO ×3 (10:19→19:51)
[2022-01-06] MEDS: Hydrocortisone 1% CR 30 GM TUBE TP ×2 (10:20→19:51)
[2022-01-06 11:46] VITALS: BP 120/58; PULSE 63; RESP 16; TEMP 36.3; O2SAT 99
[2022-01-06] MEDS: Normal Saline Flush 10 ML SYR IVP ×2 (11:50→17:16)
[2022-01-06] MEDS: cefTRIAXone 2 GM/50 ML BAG IVPB (17:16)
[2022-01-06] MEDS: diphenhydrAMINE 25 MG CAP 50 MG PO (19:49)
[2022-01-06] MEDS: Mirtazapine 15 MG TAB 30 MG PO (19:50)
[2022-01-06] MEDS: LORazepam 1 MG TAB PO (19:50)
[2022-01-07] MEDS: Normal Saline Flush 10 ML SYR IVP ×3 (01:45→17:25)
[2022-01-07] MEDS: Enoxaparin 40 MG/0.4 ML SYR SC (10:53)
[2022-01-07] MEDS: Protein Nutritional Supplement 16 GM 1 OUNCE PACKET PO ×3 (10:53→20:25)
[2022-01-07] MEDS: Polyethylene Glycol 3350 17 GM PACKET PO (10:53)
[2022-01-07] MEDS: Senna TAB 2 TAB PO ×2 (10:53→20:23)
[2022-01-07] MEDS: Docusate Sodium 100 MG CAP PO ×3 (10:53→20:23)
[2022-01-07] MEDS: Lactobacillus Acidophilus CAP 1 CAP PO ×3 (10:54→20:24)
[2022-01-07] MEDS: Multivitamin TAB 1 TAB PO (10:54)
[2022-01-07] MEDS: Pantoprazole 40 MG TABCR PO (10:54)
[2022-01-07] MEDS: Hydrocortisone 1% CR 30 GM TUBE TP ×2 (10:54→20:26)
[2022-01-07] MEDS: Magnesium Chloride 64 MG TABCR 128 MG PO ×2 (10:54→20:23)
[2022-01-07] MEDS: DULoxetine 30 MG CAP 60 MG PO (10:54)
[2022-01-07] MEDS: Cholecalciferol (Vitamin D3) 1,000 UNIT TAB 1000 UNITS PO (10:54)
[2022-01-07] MEDS: Mirabegron 25 MG TABCR PO (10:54)
[2022-01-07] MEDS: diazePAM 2 MG TAB PO ×3 (10:55→20:25)
[2022-01-07 12:03] VITALS: BP 110/70; PULSE 69; RESP 18; TEMP 36.3; O2SAT 97
--- NOTE | 2022-01-07 13:44 | CMPROGNOTE_ITS ---
- If Service Date Differs Date of service: 01/07/22 Time of Service: 13:44 Care Management Progress Note S/O: Favio was sitting up in his motorized walker when CM met with him. He was visiting with his mother. Good news today, the paperwork from the [facility] has been approved per Brook Waggoner and [facility] will be delivering Favio's DME today or tomorrow. Brook will be in contact with Cary the [facility] home provider. Favio will be ready for discharge on after his IV ABX course is complete, per provider. Favio initially wanted one of his children to transport him using his own w/c van, however he would rather see if the [facility] W[facility]C van can transport him in his motorized chair. CM will continue to support discharge planning needs. A: Favio is a 56 year old man admitted on 09/01/21 with a UTI P: Favio has been accepted into an [facility] home in [place]. Meetings were held with the home care provider (Cary Ahumada) and she has accepted him as a client. Final paperwork with [facility] has been approved. CM coordinating the ordering of medical equipment such as hospital bed and christa lift [facility], with anticipated delivery for Thursday. Favio would like to transport via [facility] W[facility] van in his motorized chair if able. CM will continue to support Favio in his transition back to the community.
[2022-01-07] MEDS: VANCOMYCIN/WATER (PEG) 1.25 GM/250 ML BAG IV ×2 (13:47→23:40)
[2022-01-07] MEDS: cefTRIAXone 2 GM/50 ML BAG IVPB (17:24)
[2022-01-07] MEDS: diphenhydrAMINE 25 MG CAP 50 MG PO (20:23)
[2022-01-07] MEDS: Mirtazapine 15 MG TAB 30 MG PO (20:23)
[2022-01-07] MEDS: LORazepam 1 MG TAB PO (20:25)
[2022-01-08] MEDS: Normal Saline Flush 10 ML SYR IVP ×4 (01:21→19:42)
[2022-01-08] MEDS: Protein Nutritional Supplement 16 GM 1 OUNCE PACKET PO ×3 (10:49→19:41)
[2022-01-08] MEDS: Polyethylene Glycol 3350 17 GM PACKET PO (10:49)
[2022-01-08] MEDS: Multivitamin TAB 1 TAB PO (10:49)
[2022-01-08] MEDS: Pantoprazole 40 MG TABCR PO (10:49)
[2022-01-08] MEDS: Enoxaparin 40 MG/0.4 ML SYR SC (10:49)
[2022-01-08] MEDS: Hydrocortisone 1% CR 30 GM TUBE TP ×2 (10:49→19:42)
[2022-01-08] MEDS: Senna TAB 2 TAB PO ×2 (10:50→19:39)
[2022-01-08] MEDS: Lactobacillus Acidophilus CAP 1 CAP PO ×3 (10:50→19:41)
[2022-01-08] MEDS: Magnesium Chloride 64 MG TABCR 128 MG PO ×2 (10:50→19:39)
[2022-01-08] MEDS: diazePAM 2 MG TAB PO ×3 (10:50→19:41)
[2022-01-08] MEDS: Mirabegron 25 MG TABCR PO (10:50)
[2022-01-08] MEDS: Docusate Sodium 100 MG CAP PO ×3 (10:50→19:40)
[2022-01-08] MEDS: Cholecalciferol (Vitamin D3) 1,000 UNIT TAB 1000 UNITS PO (10:50)
[2022-01-08] MEDS: DULoxetine 30 MG CAP 60 MG PO (10:51)
--- NOTE | 2022-01-08 12:21 | CMPROGNOTE_ITS ---
- If Service Date Differs Date of service: 01/08/22 Time of Service: 12:21 Care Management Progress Note S/O: Favio was sitting up in bed when ALCIDES met with him. His new C provider, Cary, called during the visit and a 3 way conversation was held. Favio will be discharged to [facility] home in [place] tomorrow. has scheduled [facility]'s wheelchair van for a 2:30 pm pickup. Favio's medications will be called into [facility] at [facility] and the agency will arrange for them to be brought to [facility] home. Favio's electric bed and christa lift are being delivered to [facility] home today by [facility]. Cary has confirmed this. Favio will receive his last dose of IV antibiotic today so home infusion services are no longer required. A: Favio is a 56 year old man admitted on 09/01/21 with a UTI P: Favio has been accepted into an [facility] home in [place] managed by Cary Ahumada . Final approval paperwork from [facility] was received yesterday by [facility], the managing agency. ALCIDES coordinated the ordering of medical equipment including a hospital bed and christa lift with [facility], with anticipated delivery for today. ALCIDES has arranged for transport via [facility] W/C van at Favio's request for 01/09/22 at 2:30 pm. will continue to support Favio in his transition back to the community.
--- NOTE | 2022-01-08 12:21 | PDOC.CMPRO ---
- If Service Date Differs Date of service: 01/08/22 Time of Service: 12:21 Care Management Progress Note S/O: Favio was sitting up in bed when ALCIDES met with him. His new [facility] provider, Cary, called during the visit and a 3 way conversation was held. Favio will be discharged to [facility] home in [place] tomorrow. has scheduled [facility]'s wheelchair van for a 2:30 pm pickup. Favio's medications will be called into [facility] at [facility] and the agency will arrange for them to be brought to [facility] home. Favio's electric bed and christa lift are being delivered to [facility] home today by [facility]. Cary has confirmed this. Favio will receive his last dose of IV antibiotic today so home infusion services are no longer required. A: Favio is a 56 year old man admitted on 09/01/21 with a UTI P: Favio has been accepted into an [facility] home in [place] managed by Cary Ahumada . Final approval paperwork from [facility] was received yesterday by [facility], the managing agency. ALCIDES coordinated the ordering of medical equipment including a hospital bed and christa lift with [facility], with anticipated delivery for today. ALCIDES has arranged for transport via [facility] W/C van at Favio's request for 01/09/22 at 2:30 pm. will continue to support Favio in his transition back to the community.
[2022-01-08 12:32] VITALS: BP 104/62; PULSE 79; RESP 19; TEMP 36.3; O2SAT 96
[2022-01-08] MEDS: VANCOMYCIN 1,250 MG in Normal Saline 250 ML 166.667 MG IV (12:38)
[2022-01-08] MEDS: cefTRIAXone 2 GM/50 ML BAG IVPB (18:03)
[2022-01-08] MEDS: Mirtazapine 15 MG TAB 30 MG PO (19:38)
[2022-01-08] MEDS: diphenhydrAMINE 25 MG CAP 50 MG PO (19:40)
[2022-01-08] MEDS: LORazepam 1 MG TAB PO (19:41)
[2022-01-09] MEDS: Protein Nutritional Supplement 16 GM 1 OUNCE PACKET PO ×2 (09:58→14:11)
[2022-01-09] MEDS: Magnesium Chloride 64 MG TABCR 128 MG PO (09:58)
[2022-01-09] MEDS: Enoxaparin 40 MG/0.4 ML SYR SC (09:58)
[2022-01-09] MEDS: Lactobacillus Acidophilus CAP 1 CAP PO ×2 (09:58→14:11)
[2022-01-09] MEDS: Polyethylene Glycol 3350 17 GM PACKET PO (09:58)
[2022-01-09] MEDS: DULoxetine 30 MG CAP 60 MG PO (09:58)
[2022-01-09] MEDS: Multivitamin TAB 1 TAB PO (09:58)
[2022-01-09] MEDS: Pantoprazole 40 MG TABCR PO (09:58)
[2022-01-09] MEDS: Docusate Sodium 100 MG CAP PO ×2 (09:58→14:11)
[2022-01-09] MEDS: diazePAM 2 MG TAB PO ×2 (09:59→14:11)
[2022-01-09] MEDS: Hydrocortisone 1% CR 30 GM TUBE TP (09:59)
[2022-01-09] MEDS: Senna TAB 2 TAB PO (09:59)
[2022-01-09] MEDS: Cholecalciferol (Vitamin D3) 1,000 UNIT TAB 1000 UNITS PO (09:59)
[2022-01-09] MEDS: Mirabegron 25 MG TABCR PO (10:00)
--- NOTE | 2022-01-09 11:12 | W.PM.DS.N ---
Date of service: 01/09/22 Time of Service: 11:12 DS: Diagnosis Discharge Diagnosis (1) Acute osteomyelitis of sacrum: Status: Chronic Asessment and Plan: Receiving wound care through [facility]. (2) Osteomyelitis of right foot: Status: Resolved Asessment and Plan: Surgery by Dr Silva on 11/11/21: Neuropathic ulcer with underlying osteomyelitis of fifth MPJ right foot; required excision of ulceration with resection of fifth MPJ right foot. Bone cultures with Staph Warneri and Proteus mirabilis, finished antibiotics on 01/08/22. (3) Chronic recurrent multifocal osteomyelitis: Status: Chronic (4) Suprapubic catheter: Asessment and Plan: Next change due to 01/26/22. (5) History of infusaport central venous catheter insertion: Asessment and Plan: Flush with 30 cc NS followed by heparin 500 units every 4-6 weeks. (6) Quadriplegia: Status: Chronic (7) Neurogenic bowel: Status: Chronic (8) Neurogenic bladder: Status: Chronic (9) Yeast UTI: Status: Resolved (10) Anxiety disorder: (11) Major depressive disorder: Status: Chronic (12) Insomnia: Status: Acute Discharge Plan Disposition Patient Disposition: HOME W/HOME HEALTH SERVICE Condition: Stable Discharge Details Reason For Visit: Generalized Weakness Deconditonin Failure toThrive Admit Date/Time: 09/16/21 12:51 Admit Provider: Boo Olson Attending Provider: Boo Olson Primary Care Provider: Rayna Pino Hospital Course Hospital Course: Mr Velasquez is a 56 yo M w/ PMHx of C6/7 injury with quadriplegia, neurogenic bladder s/p suprapubic catheter, neurogenic bowel, sacral osteomyelitis s/p colostomy, receiving wound care via [facility] [place], who was admitted to Swing bed level 1 at [facility] on 09/16/2021 after an acute admission for fungemia (katarina parapsilosis) due to a fungal UTI associated with an obstructed suprapubic catheter with no evidence of endocarditis. He also had and recovered from COVID-19 during that hospitalization. He could not return to his prior to admission setting due to lack of entry level assistant manager able to provide the required assistance at home. He completed 14 days of fluconazole. He was continuously followed by [facility] wound clinic for the wounds on his sacrum. On 10/27/21, the patient was noted to have erythema of R great toe for which he was placed on empiric keflex. 48 hrs later, this had disappeared, and antibiotics were d/c'ed. There was no evidence of osteomyelitis on XR. ON 11/09/21, the patient was noted to have exposed right 5th metatarsal. He was evaluated by podiatry, and Dr Silva saw the patient on 11/10/21 and debrided the wound at right 5th MPJ at bedside. The patient did indeed have exposed bone and was taken to the OR on 11/11/21 for excision of ulceration with resection of fifth MPJ R foot. Wound cultures grew staph warneri and proteus mirabilis. The patient refused peripheral IV access until a PICC line could be placed by a specific provider who was not available. We temporarily placed him on oral abx (bactrim/cefpodoxime). On 11/26/21, the patient agreed to have an infusaport placed, which occurred on 11/27/21. At this point, the patient was placed on vancomycin/ceftriaxone and he completed 6 weeks of abx on 01/08/22. His suprapubic catheter had to be exchanged several times on this admission. He is followed by urology. He did complete another course of fluconazole for a suspected complicated fungal UTI after a suprapubic catheter exchange. He did have urine cultures positive for yeast; his blood cultures were negative. During this swing bed level stay, the patient was experiencing insomnia, for which the current regimen appears to be adequate. He was continuously seen by palliative care as well as by his outpatient psychiatrist Dr Jessica Maya (via telemedicine). Care management was working on medicaid applications with the patient in search of a more appropriate disposition on discharge. The patient's medicaid was approved, and he is being discharged today to an [facility] home in [place] managed by Cary Ahumada .?He will require home health nursing, PT, OT, PARKING OFFICER. He will need to follow up with his PCP, palliative care, urology, podiatry, and [facility] wound care. PCP should consider chronic suppressive antibiotics for his sacral osteomyelitis: ID consult should be pursued as outpatient. At this point, given past h/o C.Diff, these are not being ordered. The latest recommendations for wound care are: Feet: Place both feet into Z flex offloading boots, ensuring that the heels are in the heel space. Right ischium: Remove old dressing. Cleanse with wound cleanser or NS and gauze. Insert a piece of Aquacel AG ribbon loosely into wound bed leaving a 2 cm tail for easy removal. Cover with mepilex border dressing or similar. Secure edges of dressing with skin prep. Change every 2 days or sooner for 50% or greater strike through drainage. Abdominal wound and ostomy: cleanse with wound cleanser. Pat dry. Apply skin prep to serge-wound. Apply saline moistened promogram prism to wound bed. Cover with mepilex AG. Change Q 5 days and prn. Coincide with ostomy bag changes. Sacrum shear injury: Cleanse with NS or wound cleanser. Apply skin prep to serge-wound. Cover with mepilex sacrum. Change Q48hrs and prn. R foot: wash with soap and water, pat dry gently. Mepilex dressing over incision right foot every other day. His infusaport flush instructions are: flush every 4-6 weeks with 30 cc NS followed by 500 units of heparin. Care for patient as well as completion of his discharge paperwork on day of discharge took 90 minutes. Home Meds and New Rx's Prescriptions: New cholecalciferol (vitamin D3) 25 mcg (1,000 unit) Tablet 1,000 units PO DAILY Qty: 30 0RF Phlexy-Vits Powder In Packet 1 packet PO TID Qty: 90 0RF trimethobenzamide 300 mg Capsule 300 mg PO QID PRN PRNQty: 30 0RF Enema Disposable 19-7 gram/118 mL Enema 133 ml WA .EVERY 3 DAYS PRN PRN (Reason: Constipation) Qty: 665 0RF magnesium hydroxide [Milk of Magnesia] 400 mg/5 mL Suspension 30 ml PO DAILY PRN PRN (Reason: Constipation) Qty: 355 0RF Myrbetriq 25 mg Tablet Extended Release 24 Hr 25 mg PO DAILY Qty: 30 0RF lorazepam 1 mg Tablet 1 mg PO DAILY@2000 MDD 1 mg Qty: 5 0RF hydrocortisone 1 % Cream With Perineal Applicator 1 applic topical BID Qty: 28.4 0RF bisacodyl 10 mg Suppository 10 mg WA DAILY PRN PRN (Reason: Constipation) Qty: 10 0RF diphenhydramine HCl 25 mg Capsule 50 mg PO 2000 Qty: 60 0RF mirtazapine 30 mg tablet 30 mg PO QHS Qty: 30 0RF acetaminophen [Tylenol] 325 mg tablet 650 mg PO Q6H PRN PRN (Reason: fever or pain) Qty: 30 0RF Continued diazepam 2 mg Tablet 2 mg PO TID Qty: 15 0RF pantoprazole 40 mg Tablet,Delayed Release (Dr/Ec) 40 mg PO DAILY Qty: 30 0RF lidocaine 5 % Adhesive Patch,Medicated 2 patch TOPICAL DAILY Qty: 60 0RF docusate sodium [Colace] 100 mg capsule 100 mg PO TID Qty: 90 0RF polyethylene glycol 3350 [Miralax] 17 gram/dose powder 17 g PO DAILY Qty: 238 0RF multivitamin,tx-minerals Tablet 1 tab PO DAILY Qty: 30 0RF senna 8.6 mg capsule 17.2 mg PO BID Qty: 120 0RF duloxetine 60 mg capsule,delayed release(DR/EC) 60 mg PO DAILY Qty: 30 0RF Label Comments: TAKE ONE CAPSULE BY MOUTH ONCE DAILY Mag 64 64 mg Tablet,Delayed Release (Dr/Ec) 128 mg PO BID Qty: 120 0RF Lactobacillus acidoph-L.bulgar [Floranex] 1 million cell tablet 1 tab PO TID Qty: 90 0RF Changed ascorbic acid (vitamin C) 500 mg Tablet 500 mg PO BID Qty: 60 0RF albuterol sulfate 90 mcg/actuation aerosol powdr breath activated 2 inh inhalation Q6H PRN PRN (Reason: shortness of breath or wheezing) Qty: 1 0RF Discontinued acetaminophen 500 mg capsule 650 mg PO Q4H 0RF bisacodyl [Dulcolax (bisacodyl)] 10 mg suppository See Rx Instructions .ROUTE .COMPLEX PRN0RF Rx Instructions: 10 mg rectally as needed amlodipine 10 mg Tablet 10 mg PO DAILY 0RF mirtazapine 15 mg Tablet 7.5 mg PO HS Qty: 14 0RF Bio-K plus 50 billion cell capsule,delayed release(DR/EC) 1 cap PO DAILY Qty: 14 0RF ondansetron HCl [Zofran] 4 mg Tablet 4 mg PO Q8H PRN0RF cholecalciferol (vitamin D3) 25 mcg (1,000 unit) tablet 2,000 units PO DAILY 0RF No Action Santyl 250 unit/gram Ointment 0 g topical DAILY Qty: 1 0RF Discharge Instructions Instructions: Osteomyelitis (DC), Chronic Wound Care (DC) Additional Instructions: Return to the hospital with any fever, bleeding, chest pain, or shortness of breath. Follow up with PCP, podiatry, [facility] wound care, palliative care, psychiatry, urology. Next suprapubic catheter change 01/27/22 (Dr Molina). Wound care Recommendations. Feet: Place both feet into Z flex offloading boots, ensuring that the heels are in the heel space. Right ischium: Remove old dressing. Cleanse with wound cleanser or NS and gauze. Insert a piece of Aquacel AG ribbon loosely into wound bed leaving a 2 cm tail for easy removal. Cover with mepilex border dressing or similar. Secure edges of dressing with skin prep. Change every 2 days or sooner for 50% or greater strike through drainage. Abdominal wound and ostomy: cleanse with wound cleanser. Pat dry. Apply skin prep to serge-wound. Apply saline moistened promogram prism to wound bed. Cover with mepilex AG. Change Q 5 days and prn. Coincide with ostomy bag changes. Sacrum shear injury: Cleanse with NS or wound cleanser. Apply skin prep to serge-wound. Cover with mepilex sacrum. Change Q48hrs and prn. R foot: wash with soap and water, pat dry gently. Mepilex dressing over incision right foot every other day. His infusaport flush instructions are: flush every 4-6 weeks with 30 cc NS followed by 500 units of heparin. Care Plan Goals: C Home with home health nursing, PT, OT, PARKING OFFICER. Stand Alone Forms: Nursing Discharge Form Referrals: Malgorzata Whitfield Wound care [facility] [place] Director Of Social Media Marketing 4M [Other] (10/17/21 11am) Scarlett Zhu MD, TIM [[facility]] - Rayna Pino [Primary Care Provider] - Efe Silva DPM [DPM [facility] STAFF PHYSICIAN] - Ady Molina MD [ [facility] STAFF PHYSICIAN] - Activity:: Activity as Tolerated Equipment/Supplies:: No Equipment Needed Diet:: Low Sodium Discharge Orders Discharge Orders: Discharge Order (Routine); Ordered 01/09/22 Ordered By: Lamar Murillo DS: Summary Time Spent with Patient providing and/or coordinating discharge services: Greater than 30 minutes Status at Discharge Functional status at discharge: wheelchair bound Overall status at discharge: patient is back to baseline Mental Status: mental status grossly normal Speech and Movement: speech and movement normal Mood: congruent mood Affect: normal affect Exam Narrative Exam Narrative: General: Pleasant middle-aged male who is resting comfortably in bed, A&Ox3 HEENT: EOMI, MMM Heart: RRR, no m/r/g Lungs: CTAB Abdomen: soft,nondistended; ostomy in place Extremities: B foot drop; R lateral foot is dressed - c/d/i; in heel protectors Psych Mental Status: mental status grossly normal Speech and Movement: speech and movement normal Mood: congruent mood Affect: normal affect DS: Data Vitals/I&O Vitals and I&O: Vital Signs Temperature 36.3 C L 01/08/22 12:32 Temperature Source Tympanic 01/08/22 12:32 Pulse 79 01/08/22 12:32 Pulse Rhythm Regular 01/09/22 10:42 Respiratory Rate 19 01/08/22 12:32 Respiratory Effort Non-Labored 01/09/22 10:42 Respiratory Depth Normal 01/09/22 10:42 Respiratory Pattern Normal 01/09/22 10:42 Blood Pressure 104/62 01/08/22 12:32 Pulse Oximetry 96 01/08/22 12:32 Oxygen Delivery Method Room Air 01/08/22 12:32 Oxygen Flow Rate 0 01/08/22 12:32 Pain Level 0 01/05/22 11:37 Comment 12/31/21 11:46 Intake & Output 01/08/22 01/08/22 01/09/22 11:59 23:59 11:59 Intake Total 1250 / 1250 1150 / 1150 Output Total 550 / 2100 1550 / 2100 800 / 800 Balance -550 / -850 -300 / -850 350 / 350 Intake: IV 550 / 550 Oral 1250 / 1250 600 / 600 Output: Urine 550 / 1775 1225 / 1775 800 / 800 Stool 325 / 325 Other: Urine Color Yellow Yellow Yellow Urine Appearance Clear Clear Cloudy Comment intact and draining Data Completed and Pending Completed studies during hospitalization [Text1]: CXR 09/16/21: No acute pulmonary findings. XR R foot 10/27/21: Two views of the right foot reveal diffuse nonuse osteopenia.? No obvious acute fracture or diastasis of the Hanna carmen joint.? No obvious radiographic evidence of osteomyelitis although the toes are overlapping on the lateral view XR R foot 11/09/21: Question of osteomyelitis of the 5th metatarsal head.? Severe disuse osteopenia. CT c-spine 11/24/21: 1. Stable postsurgical changes in the cervical spine. 2. No acute fracture or subluxation is identified in the cervical spine. 3. Multilevel degenerative changes in the cervical spine most marked at the C3-C4 level. CXR 11/27/21: No acute pulmonary findings on this single AP portable view of the chest. Port-A-Cath in satisfactory position.? There is no pneumothorax. CT c-spine 12/05/21: Postsurgical changes as described above.? No change from November 24 study. No gross evidence of cervical fluid collection or abscess. CX12/05/21: No evidence of acute change. PFSH All Active Problems Bronchospasm (Acute) Neurogenic bowel (Chronic) Insomnia (Acute) Weight gain (Acute) Suprapubic catheter dysfunction (Acute) Neck pain (Acute) Near syncope (Acute) Paronychia of great toe (Acute) Decubitus skin ulcer (Acute) Insomnia (Acute) Constipation due to neurogenic bowel (Acute) DVT prophylaxis (Acute) Discharge planning issues (Acute) Chronic recurrent multifocal osteomyelitis (Chronic) Palliative care encounter (Acute) S/P colostomy (Chronic) Acute osteomyelitis of sacrum (Chronic) Major depressive disorder (Chronic) Neurogenic bladder (Chronic) Quadriplegia (Chronic) Medical History Acute embolism and thrombosis of deep vein of right lower extremity Anxiety disorder Aspiration into airway C. difficile colitis Constipation Decubitus ulcer of buttock, stage 4 Dislocation of C6/C7 cervical vertebrae DNR (do not resuscitate) DVT (deep venous thrombosis) DVT prophylaxis Encounter for wound care Fall down embankment Fusion of spine H/O deep venous thrombosis Hypokalemia Hypotension Ileus Iron deficiency anemia Large bowel obstruction Malnutrition following gastrointestinal surgery Open wound of abdominal wall Palliative care patient Physician orders for life-sustaining treatment (POLST) form indicates patient wish for [id number] status Right arm pain Visit for wound check Surgical History History of infusaport central venous catheter insertion Suprapubic catheter Social History Smoking/Tobacco Use Status: Never Smoking risk assessment performed?: Yes Alcohol Intake: former Drug use: Occasionally Substance use type: marijuana Do you feel safe at home: Yes Do you feel safe in your relationship?: Yes
--- NOTE | 2022-01-09 12:34 | PDOC.HHF2F ---
Home Health Certification Home Health Certification: 1. Encounter Date and Reason I certify that Bruce Velasquez Jr was seen by Lamar Murillo on 01/09/22 and that I had a [id number] encounter with this patient that meets the physician face to face encounter requirements. 2. Clinical Findings Supporting Skilled Need and Homebound Status I certify that home health services are medically necessary, include either intermittent custodial and/or physical/speech therapy, and that this patient is homebound in that absences from the home require considerable and taxing effort and are infrequent or of short duration, or are attributable to the need to receive medical care. [X] (a) Attached documentation from encounter provides clinical findings supporting skilled need and homebound status (including what assistance patient requires to leave the home). The encounter with the patient was in whole, or in part, for the following medical condition, which is the primary reason for home health care: Generalized Weakness Deconditonin Failure toThrive Nursing Home: Wound care, suprapubic catheter changes, flushes for infusaport. The latest recommendations for wound care are: Feet:?Place both feet into Z flex offloading boots, ensuring that the heels are in the heel space. Right ischium:?Remove old dressing. Cleanse with wound cleanser or NS and gauze. Insert a piece of Aquacel AG ribbon loosely into wound bed leaving a 2 cm tail for easy removal. Cover with mepilex border dressing or similar. Secure edges of dressing with skin prep. Change every 2 days or sooner for 50% or greater strike through drainage. Abdominal wound and ostomy:?cleanse with wound cleanser. Pat dry. Apply skin prep to serge-wound. Apply saline moistened promogram prism to wound bed. Cover with mepilex AG. Change Q 5 days and prn. Coincide with ostomy bag changes. Sacrum shear injury:?Cleanse with NS or wound cleanser. Apply skin prep to serge-wound. Cover with mepilex sacrum. Change Q48hrs and prn. R foot:?wash with soap and water, pat dry gently. Mepilex dressing over incision right foot every other day. His infusaport flush instructions are: flush every 4-6 weeks with 30 cc NS followed by 500 units of heparin. Physical Therapy: C-spine injury ; eval and treat Occupational Therapy: eval and treat YOUTH CARE SPECIALIST: assess for need for resources in the community. Homebound: unable to leave home without assistance 3. Certification and Authentication I certify that I composed the above information based on my clinical judgement relating to this patient's medical condition and, if applicable, clinical findings communicated to me by the NPP or inpatient physician who performed the Home Health Referral. All further orders will be obtained through ___Rayna Pino (Community Based Physician - PCP)
--- NOTE | 2022-01-09 14:17 | CMDISCH_ITS ---
- If Service Date Differs Date of service: 01/09/22 Time of Service: 14:17 LACE Index Scoring Tool - Questions: Length of Stay (in days): 14 or more Acuity (Admit via E.D.?): Yes E.D. Visits: 2 - Answers: Total Score: 12 Risk of Readmission: High Risk Care Management Discharge Reason for Hospitalization: Fungemia and quadroplegia Discharge Plan: Favio will be discharged to a new [facility] home later today. The provider's name is Cary Ahumada and her home is at [address] [place] [address]. Favio will have new home health services including nursing, PT, OT and CREDIT REPORT CHECKER. He has an electric wheelchair, an electric bed and a christa lift. Favio also owns a van that is wheelchair accessible. He will follow up with his community providers locally as well as his specialists in [place] and at [facility]. Favio will transport via [facility] wheelchair van coordinated by CM. Patient/Family Education Needs: Review of discharge instructions including medications, limitations, activity, follow up plan, Ask Me Three
[2022-01-09] MEDS: Normal Saline Flush 10 ML SYR IVP (14:42)
[2022-01-09] MEDS: Heparin 500 UNITS/5 ML SYRINGE IV (14:42)
== END 2022-01-09 14:35 | disposition home health service (06) | DRG 592 ==
PROVIDERS: Family Medicine; Internal Medicine; Nurse Practitioner Acute Care; Surgery; Admitting Provider Internal Medicine; PCP Nurse Practitioner Family; Visit Provider Internal Medicine
DX: L89.894 Pressure ulcer of other site, stage 4 (principal); G82.50 Quadriplegia, unspecified; U07.1 COVID-19; T83.510A Infection and inflammatory reaction due to cystostomy catheter, initial encounter; B48.8 Other specified mycoses; K59.2 Neurogenic bowel, not elsewhere classified; M86.38 Chronic multifocal osteomyelitis, other site; F32.1 Major depressive disorder, single episode, moderate; M86.171 Other acute osteomyelitis, right ankle and foot; N39.0 Urinary tract infection, site not specified; L89.224 Pressure ulcer of left hip, stage 4; L89.214 Pressure ulcer of right hip, stage 4; L89.102 Pressure ulcer of unspecified part of back, stage 2; S14.109S Unspecified injury at unspecified level of cervical spinal cord, sequela; W19.XXXS Unspecified fall, sequela; N31.9 Neuromuscular dysfunction of bladder, unspecified; Z66 Do not resuscitate; Z93.3 Colostomy status; K59.00 Constipation, unspecified; D50.9 Iron deficiency anemia, unspecified; F41.9 Anxiety disorder, unspecified; Z86.718 Personal history of other venous thrombosis and embolism; F51.04 Psychophysiologic insomnia; I95.9 Hypotension, unspecified
CPT/HCPCS: 36410; 36415; 71045; 80048; 80053; 84145; 85027; 85652; 87040; 87635; 99305; 99307; 99309; 99316; J1650; 72125; 72126; 73620; 73630; 80202; 81003; 81015; 82565; 83735; 84550; 85025; 85049; 86140; 87086; 99308; 99310; J0696; J1450; J3490

== ENCOUNTER 2021-11-11 13:39 | Day surgery (SDC) | payer BC, MEDICAID, SELFPAY ==
--- NOTE | 2021-11-11 10:08 | W.ANESPRE ---
General Info Date of Service Date Performed: 11/11/21 Height: 6 ft 2 in Weight: 80 kg Body Mass Index (BMI): 22.6 Surgical Procedure: Operation Date: 11/11/21 11:55 Proposed Procedures Side Surgeon p Debridement R 5TH MPJ Right Efe Silva DPM Meds Allergies and Home Medications Allergies Allergy/AdvReac Type Severity Reaction Status Date / Time No Known Allergies Allergy Unverified 09/01/21 12:15 Home Medication Medication Instructions Recorded Lactobacillus acidoph-L.bulgaricus 1 tab PO TID tab 01/29/21 1 million cell tablet acetaminophen 500 mg capsule 650 mg PO Q4H cap 01/29/21 albuterol sulfate 90 mcg/actuation 2 inh INHALATION Q4H PRN PRN 01/29/21 breath activated powder inhaler bisacodyl 10 mg rectal suppository See Rx Instructions .ROUTE 01/29/21 .COMPLEX PRN docusate sodium 100 mg capsule 100 mg PO TID 01/29/21 polyethylene glycol 3350 17 17 g PO DAILY 01/29/21 gram/dose oral powder sennosides 8.6 mg capsule 17.2 mg PO BID 01/29/21 ondansetron HCl [Zofran] 4 mg PO Q8H PRN 02/20/21 amlodipine 10 mg PO DAILY 04/10/21 ascorbic acid (vitamin C) 1,000 mg PO BID 04/10/21 lidocaine 2 patch TOPICAL DAILY 04/10/21 multivitamin,tx-minerals 1 tab PO DAILY 04/10/21 L. acidophilus,casei,rhamnosus 1 cap PO DAILY #14 cap 08/02/21 [Bio-K plus] collagenase clostridium histo. 0 g TOPICAL DAILY #1 g 08/02/21 [Santyl] diazepam 2 mg PO TID #20 tab 08/02/21 magnesium chloride [Mag 64] 128 mg PO BID #28 tab 08/02/21 mirtazapine 7.5 mg PO HS #14 tab 08/02/21 duloxetine 60 mg PO DAILY 09/05/21 cholecalciferol (vitamin D3) 2,000 units PO DAILY 09/16/21 pantoprazole 40 mg PO DAILY 09/16/21 PFSH Active Problems Active Problems: Problem Status Onset Code Osteomyelitis of right foot M86.9 Paronychia of great toe L03.039 Decubitus skin ulcer L89.90 Insomnia G47.00 Constipation due to neurogenic bowel K59.00, K59.2 DIAMOND (acute kidney injury) N17.9 DVT prophylaxis Z29.9 Discharge planning issues Z02.9 Chronic recurrent multifocal osteomyelitis M86.30 Palliative care encounter Z51.5 S/P colostomy Z93.3 Low magnesium level R79.0 Indwelling catheter replaced Z46.6 Acute osteomyelitis of sacrum M46.28 Major depressive disorder F32.9 Neurogenic bladder N31.9 Quadriplegia G82.50 Hx of caloric malnutrition Z86.39 Medical History Medical History Acute embolism and thrombosis of deep vein of right lower extremity Anxiety disorder Aspiration into airway C. difficile colitis Constipation Decubitus ulcer of buttock, stage 4 Dislocation of C6/C7 cervical vertebrae DNR (do not resuscitate) DVT (deep venous thrombosis) DVT prophylaxis Encounter for wound care Fall down embankment Fusion of spine H/O deep venous thrombosis Hypokalemia Hypotension Ileus Iron deficiency anemia Large bowel obstruction Malnutrition following gastrointestinal surgery Neurogenic bowel Open wound of abdominal wall Palliative care patient Physician orders for life-sustaining treatment (POLST) form indicates patient wish for wu-jas-rptvhysfhhe status Right arm pain Visit for wound check Tobacco Smoking/Tobacco Use Status: Never Alcohol Alcohol Intake: former Substance Use Substance use: Occasionally Substance use type: marijuana Vital Signs and Lab Results Lab Results Blood Type / Crossmatch: No Data to Display Complete Blood Count: White Blood Count 6.11 10^3/uL (4.4-10.8) 11/10/21 10:11/10/21 Red Blood Count 4.64 10^6/uL (4.36-5.78) 11/10/21 10:11/10/21 Hemoglobin 13.2 g/dL (13.5-17.5) L 11/10/21 10:11/10/21 Hematocrit 41.2 % (40.0-50.0) 11/10/21 10:11/10/21 Platelet Count 202 10^3/uL (130-400) 11/10/21 10:11/10/21 Complete Metabolic Panel: Sodium Level 142 mmol/L (136-145) 11/10/21 10:11/10/21 Potassium Level 3.6 mmol/L (3.5-5.1) 11/10/21 10:05 11/10/21 Chloride Level 105 mmol/L (98-107) 11/10/21 10:05 11/10/21 Carbon Dioxide Level 26.7 mmol/L (21.0-32.0) 11/10/21 10:05 11/10/21 Blood Urea Nitrogen 26 mg/dL (7-18) H 11/10/21 10:11/10/21 Creatinine 0.7 mg/dL (0.70-1.30) 11/10/21 10:11/10/21 Estimated GFR/1.73 m2 >= 60.00 (mL/min/1.73m2) 11/10/21 10:11/10/21 Magnesium Level 1.9 mg/dL (1.8-2.4) 11/10/21 10:11/10/21 Calcium Level 9.2 mg/dL (8.5-10.1) 11/10/21 10:11/10/21 Glucose Level 96 mg/dL (74-106) 11/10/21 10:11/10/21 C-Reactive Protein 1.53 mg/dL (0.0-0.3) H 11/10/21 10:11/10/21 Liver Function Panel: No Data to Display Coagulation Panel: No Data to Display Cardiac Panel: No Data to Display Arterial Blood Gas: No Data to Display Venous Blood Gas: No Data to Display Pancreas Panel: No Data to Display Thyroid Panel: No Data to Display Infectious Disease: No Data to Display Blood Cultures: No Data to Display Toxicology Panel: No Data to Display Imaging and Studies Imaging and Studies Study information below may be from another EMR and interpreted by another provider. Please see original notes in EMR for more complete details. EKG Summary: 02/20: sinus rhythm. Echocardiogram Summary: 09/04/21: EF 57%, No hemodynamic valve concerns 03/18/2021 Conclusion Left Ventricle : The left ventricle is normal size. The overall left ventricular systolic function appears normal. There is normal left ventricular wall thickness. Regional wall motion is not well visualized but grossly normal. The left ventricular diastolic function is normal. Right Ventricle : Right ventricle is not well visualized. Right ventricular systolic function could not be assessed. Atria : The left atrium size is normal. The right atrium size is normal. Valves: There are no hemodynamically significant valvular lesions. There is no clear evidence of endocarditis in this technically limited study. Great Vessels : The aortic root is normal in size. The ascending aorta is mildly dilated. IVC is normal in size and collapses >50% with inspiration. Please see remainder of findings for further details. Anesthesia Assessment and Plan Anesthesia History Personal History: No History of Anesthesia Complications Family History: No Family History of Anesthesia Complications Exercise Tolerance Exercise Tolerance: Metabolic Equivalents>4 Pertinent Negatives Pertinent Negatives: No Symptoms of GERD Cardiac & Pulmonary Exam Cardiac Exam: Normal S1/S2 Heart Sounds Pulmonary Exam: Clear Bilateral Breath Sounds Implantable Cardiac Device Does patient have a Pacemaker or an ICD?: No Airway Exam Known Difficult Airway: No Mallampati Class: 1 Mouth Opening: Normal (> 3cm) Thyromental Distance: Greater than 3 cm Neck Range of Motion: Limited ROM Neck Circumference: Normal Teeth Condition: Loose or Chipped Airway Comments: multiple missing teeth. ASA Classification ASA Score: ASA 3 Emergency Case?: No NPO Status NPO Status: NPO Clears >2 hours, Solids >8 hours Anesthesia Plan Resuscitation Status: Full Code Anesthesia Technique: General Anesthesia Airway Planned: Natural Airway Monitors Used: Standard Monitors
[2021-11-11 10:23] VITALS: BMI 22.6
[2021-11-11] MEDS: Lactated Ringers 1,000 ML 30 ML IV (12:15)
--- NOTE | 2021-11-11 12:20 | BONE_PTH ---
PATIENT: Bruce Velasquez JR LOC: [facility] U#:[id number] AGE/SX: 56/M ROOM: RE11/11/[address]: Efe Silva : 1965 BED: DIS: 11/11/2021 SPEC #: [id number] RECD: 11/11/21 18:37 STATUS: SY REQ #: [id number] YUE: 11/11/21 12:[address]: Efe Silva DEPT: Surgical Specimen RECD BY: Alexa Carson ENTERED: 11/11/21 18:40 SP TYPE: Bone OTHR DR: Rayna Pino Tissues: 1 - BONE BX/CURRETTE NOT PATH FRACTURE 2 - BONE BX/CURRETTE NOT PATH FRACTURE Procedures: GROSS AND MICRO LEVEL 3 DECALCIFICATION Comments: [id number]
[2021-11-11] MEDS: cefTRIAXone 2 GM/50 ML BAG IVPB (12:38)
[2021-11-11] MEDS: Bupivacaine 0.5% Pres-Free 30 ML VIAL (12:45)
--- NOTE | 2021-11-11 14:16 | W.ANESPOSTOP ---
Postoperative Evaluation Date, Time and Location Date Performed: 11/11/21 Time Performed: 14:16 Patient Location: Med/Surg Vital Signs Most Recent Manually Entered Vital Signs: Adult Blood Pressure: 96/60 Heart Rate: 74 Respirations: 16 Oxygen Saturation (%): 94 Temperature (C): 36 C Pain Score (0-10 Scale): 0 Assessment Mental Status: Awake (Alert & Oriented to Patient Baseline) Airway and Respiratory Function: Patent airway with normal (patient baseline) respiratory exam Cardiovascular Function: Hemodynamically Stable Hydration Status: Adequately Hydrated Nausea & Vomiting: No Nausea or Vomiting Pain: Pt. Denies Any Pain Peripheral Nerve Block: Patient did not receive a nerve block
[2021-11-11 14:17] VITALS: BP 96/60; PULSE 74; RESP 16; TEMPC 36; O2SAT 94
== END 2021-11-11 13:40 | disposition home or self-care (01) ==
LOC: SUR 11-12 13:39
PROVIDERS: PCP Nurse Practitioner Family; Visit Provider Podiatrist
PROC: (CPT 20240; principal; 2021-11-11 11:45)
DX: M86.171 Other acute osteomyelitis, right ankle and foot (principal); M86.671 Other chronic osteomyelitis, right ankle and foot; L97.516 Non-pressure chronic ulcer of other part of right foot with bone involvement without evidence of necrosis; B95.7 Other staphylococcus as the cause of diseases classified elsewhere; B96.4 Proteus (mirabilis) (morganii) as the cause of diseases classified elsewhere; Z16.11 Resistance to penicillins; Z16.29 Resistance to other single specified antibiotic; Z16.23 Resistance to quinolones and fluoroquinolones; G82.50 Quadriplegia, unspecified; G62.9 Polyneuropathy, unspecified; S14.109S Unspecified injury at unspecified level of cervical spinal cord, sequela; W17.81XS Fall down embankment (hill), sequela
CPT/HCPCS: 20240; 87077; 87070; 87075; 87186; 87205; 88304; 88311

== ENCOUNTER 2021-11-27 14:00 | Day surgery (SDC) | payer BC, MEDICAID, SELFPAY ==
--- NOTE | 2021-11-27 13:22 | W.ANESPRE ---
General Info Date of Service Date Performed: 11/27/21 Height: 6 ft 2 in Weight: 82.4 kg Body Mass Index (BMI): 23.3 Surgical Procedure: Operation Date: 11/27/21 14:55 Proposed Procedures Side Surgeon p Port-A-Cath Placement Elinor Pedersen MD Meds Allergies and Home Medications Allergies Allergy/AdvReac Type Severity Reaction Status Date / Time No Known Allergies Allergy Unverified 09/01/21 12:15 Home Medication Medication Instructions Recorded Lactobacillus acidoph-L.bulgaricus 1 tab PO TID tab 01/29/21 1 million cell tablet acetaminophen 500 mg capsule 650 mg PO Q4H cap 01/29/21 albuterol sulfate 90 mcg/actuation 2 inh INHALATION Q4H PRN PRN 01/29/21 breath activated powder inhaler bisacodyl 10 mg rectal suppository See Rx Instructions .ROUTE 01/29/21 .COMPLEX PRN docusate sodium 100 mg capsule 100 mg PO TID 01/29/21 polyethylene glycol 3350 17 17 g PO DAILY 01/29/21 gram/dose oral powder sennosides 8.6 mg capsule 17.2 mg PO BID 01/29/21 ondansetron HCl [Zofran] 4 mg PO Q8H PRN 02/20/21 amlodipine 10 mg PO DAILY 04/10/21 ascorbic acid (vitamin C) 1,000 mg PO BID 04/10/21 lidocaine 2 patch TOPICAL DAILY 04/10/21 multivitamin,tx-minerals 1 tab PO DAILY 04/10/21 L. acidophilus,casei,rhamnosus 1 cap PO DAILY #14 cap 08/02/21 [Bio-K plus] collagenase clostridium histo. 0 g TOPICAL DAILY #1 g 08/02/21 [Santyl] diazepam 2 mg PO TID #20 tab 08/02/21 magnesium chloride [Mag 64] 128 mg PO BID #28 tab 08/02/21 mirtazapine 7.5 mg PO HS #14 tab 08/02/21 duloxetine 60 mg PO DAILY 09/05/21 cholecalciferol (vitamin D3) 2,000 units PO DAILY 09/16/21 pantoprazole 40 mg PO DAILY 09/16/21 PFS Active Problems Active Problems: Problem Status Onset Code Suprapubic catheter dysfunction T83.010A Hypotension I95.9 Neck pain M54.2 Near syncope R55 Osteomyelitis of right foot M86.9 Paronychia of great toe L03.039 Decubitus skin ulcer L89.90 Insomnia G47.00 Constipation due to neurogenic bowel K59.00, K59.2 DIAMOND (acute kidney injury) N17.9 DVT prophylaxis Z29.9 Discharge planning issues Z02.9 Chronic recurrent multifocal osteomyelitis M86.30 Palliative care encounter Z51.5 S/P colostomy Z93.3 Low magnesium level R79.0 Indwelling catheter replaced Z46.6 Acute osteomyelitis of sacrum M46.28 Major depressive disorder F32.9 Neurogenic bladder N31.9 Quadriplegia G82.50 Hx of caloric malnutrition Z86.39 Medical History Medical History Acute embolism and thrombosis of deep vein of right lower extremity Anxiety disorder Aspiration into airway C. difficile colitis Constipation Decubitus ulcer of buttock, stage 4 Dislocation of C6/C7 cervical vertebrae DNR (do not resuscitate) DVT (deep venous thrombosis) DVT prophylaxis Encounter for wound care Fall down embankment Fusion of spine H/O deep venous thrombosis Hypokalemia Hypotension Ileus Iron deficiency anemia Large bowel obstruction Malnutrition following gastrointestinal surgery Neurogenic bowel Open wound of abdominal wall Palliative care patient Physician orders for life-sustaining treatment (POLST) form indicates patient wish for rt-kiz-gulsmnkcwlj status Right arm pain Visit for wound check Tobacco Smoking/Tobacco Use Status: Never Alcohol Alcohol Intake: former Substance Use Substance use: Occasionally Substance use type: marijuana Vital Signs and Lab Results Lab Results Blood Type / Crossmatch: No Data to Display Complete Blood Count: White Blood Count 9.68 10^3/uL (4.4-10.8) 11/24/21 11:50 11/24/21 Red Blood Count 5.06 10^6/uL (4.36-5.78) 11/24/21 11:50 11/24/21 Hemoglobin 14.5 g/dL (13.5-17.5) 11/24/21 11:50 11/24/21 Hematocrit 44.3 % (40.0-50.0) 11/24/21 11:50 11/24/21 Platelet Count 222 10^3/uL (130-400) 11/24/21 11:50 11/24/21 Complete Metabolic Panel: Sodium Level 138 mmol/L (136-145) 11/24/21 11:50 11/24/21 Potassium Level 4.4 mmol/L (3.5-5.1) 11/24/21 11:50 11/24/21 Chloride Level 103 mmol/L (98-107) 11/24/21 11:50 11/24/21 Carbon Dioxide Level 23.1 mmol/L (21.0-32.0) 11/24/21 11:50 11/24/21 Blood Urea Nitrogen 28 mg/dL (7-18) H 11/24/21 11:50 11/24/21 Creatinine 1.0 mg/dL (0.70-1.30) 11/24/21 11:50 11/24/21 Estimated GFR/1.73 m2 >= 60.00 (mL/min/1.73m2) 11/24/21 11:50 11/24/21 Magnesium Level 1.7 mg/dL (1.8-2.4) L 11/24/21 11:50 11/24/21 Calcium Level 9.3 mg/dL (8.5-10.1) 11/24/21 11:50 11/24/21 Glucose Level 112 mg/dL (74-106) H 11/24/21 11:50 11/24/21 C-Reactive Protein 1.65 mg/dL (0.0-0.3) H 11/24/21 11:50 11/24/21 Liver Function Panel: No Data to Display Coagulation Panel: No Data to Display Cardiac Panel: No Data to Display Arterial Blood Gas: No Data to Display Venous Blood Gas: No Data to Display Pancreas Panel: No Data to Display Thyroid Panel: No Data to Display Infectious Disease: Coronavirus (COVID-19)(PCR) Negative (Negative) 11/27/21 12:15 11/27/21 Coronavirus 2019 Source Nasal/Nares 11/27/21 12:15 11/27/21 Blood Cultures: No Data to Display Toxicology Panel: No Data to Display Imaging and Studies Imaging and Studies Study information below may be from another EMR and interpreted by another provider. Please see original notes in EMR for more complete details. EKG Summary: 02/20: sinus rhythm. Echocardiogram Summary: 09/04/21: EF 57%, No hemodynamic valve concerns 03/18/2021 Conclusion Left Ventricle : The left ventricle is normal size. The overall left ventricular systolic function appears normal. There is normal left ventricular wall thickness. Regional wall motion is not well visualized but grossly normal. The left ventricular diastolic function is normal. Right Ventricle : Right ventricle is not well visualized. Right ventricular systolic function could not be assessed. Atria : The left atrium size is normal. The right atrium size is normal. Valves: There are no hemodynamically significant valvular lesions. There is no clear evidence of endocarditis in this technically limited study. Great Vessels : The aortic root is normal in size. The ascending aorta is mildly dilated. IVC is normal in size and collapses >50% with inspiration. Please see remainder of findings for further details. Anesthesia Assessment and Plan Anesthesia History Personal History: No History of Anesthesia Complications Family History: No Family History of Anesthesia Complications Exercise Tolerance Exercise Tolerance: Metabolic Equivalents<4 Cardiac & Pulmonary Exam Cardiac Exam: Normal S1/S2 Heart Sounds Pulmonary Exam: Clear Bilateral Breath Sounds Implantable Cardiac Device Does patient have a Pacemaker or an ICD?: No Airway Exam Known Difficult Airway: No Mallampati Class: 2 Mouth Opening: Normal (> 3cm) Thyromental Distance: Greater than 3 cm Neck Range of Motion: Limited ROM Neck Circumference: Normal Teeth Condition: Loose or Chipped Airway Comments: multiple missing teeth. ASA Classification ASA Score: ASA 3 Emergency Case?: No NPO Status NPO Status: NPO Clears >2 hours, Solids >8 hours Anesthesia Plan Resuscitation Status: Full Code Anesthesia Technique: General Anesthesia Airway Planned: Natural Airway Monitors Used: Standard Monitors Preoperative Comments:: Discussed that patient required PIV prior to OR. Patient agreed. Verbal consent taken at bedside.
[2021-11-27 13:28] VITALS: BMI 23.3
--- NOTE | 2021-11-27 14:00 | DI.RAD_ITS ---
Exam(s) RF LINE PLACEMENT OR EXAM: RF LINE PLACEMENT OR CLINICAL HISTORY: port placement in OR. TECHNIQUE: 2D and realtime digital imaging was performed. CONTRAST MATERIAL: Oral barium Oral water soluble contrast was administered. COMPARISON: No exams were available for comparison FINDINGS: Fluoroscopy provided. See procedure report for details. IMPRESSION: RADIATION DOSE DELIVERED: fletcher De La Torre=0.74 mGy
[2021-11-27] MEDS: Lactated Ringers 1,000 ML 50 ML IV (15:30)
[2021-11-27] MEDS: Bupivacaine 0.25% Pres-Free 30 ML VIAL (15:31)
[2021-11-27] MEDS: Heparin 500 UNITS/5 ML SYRINGE (15:39)
--- NOTE | 2021-11-27 15:55 | SCONE_ITS ---
Date of service: 11/27/21 Time of Service: 15:00 Assessment and Plan Assessment and plan (1) Osteomyelitis of right foot: Status: Acute Assessment and plan: Favio is in need of more permanent IV access for his antibiotics which he will need for some time. We discussed placing a PORT in the left or right subclavian vein. Risks, benefits, complications of Mediport placement were reviewed with the pat ient. Complications include but are not limited to bleeding, infection, wound dehiscence, skin necrosis, seroma, hematoma, injury to subclavian vein or superior vena cava, pneumothorax, venous thrombosis and malfunction of the port. Questions were entertained and answered to his satisfaction and he wished to proceed. No guarantees were given or implied. History of Present Illness Narrative: Mr. Velasquez is well known to the surgical service. He is currently being treated for osteomylitis and will need extermination supervisor antibiotics. He has no good peripheral vein access and an attempt was made to place a PICC line without success. We were consulted by the Hospitalist service to place a port-a-cath. He was also noted to be bacteremic. His last set of blood cultures were done on Thursday and they were negative. Review of Systems Constitutional Constitutional: Denies fever(s) Eyes Eyes: Denies change in vision Cardiovascular Cardiovascular: Denies chest pain, Denies irregular heart rhythm and Denies dyspnea Respiratory Respiratory: Denies cough and Denies dyspnea Gastrointestinal Gastrointestinal: Reports system reviewed and no additional complaints, except as documented Genitourinary Genitourinary: Reports system reviewed and no additional complaints, except as documented Musculoskeletal Musculoskeletal: Reports system reviewed and no additional complaints, except as documented Integumentary/Breasts Skin/Breast: Reports system reviewed and no additional complaints, except as documented PFSH All Active Problems Suprapubic catheter dysfunction (Acute) Hypotension (Acute) Neck pain (Acute) Near syncope (Acute) Osteomyelitis of right foot (Acute) Paronychia of great toe (Acute) Decubitus skin ulcer (Acute) Insomnia (Acute) Constipation due to neurogenic bowel (Acute) DVT prophylaxis (Acute) Discharge planning issues (Acute) Chronic recurrent multifocal osteomyelitis (Chronic) Palliative care encounter (Acute) S/P colostomy (Chronic) Acute osteomyelitis of sacrum (Chronic) Major depressive disorder (Chronic) Neurogenic bladder (Chronic) Quadriplegia (Chronic) Medical History Acute embolism and thrombosis of deep vein of right lower extremity Anxiety disorder Aspiration into airway C. difficile colitis Constipation Decubitus ulcer of buttock, stage 4 Dislocation of C6/C7 cervical vertebrae DNR (do not resuscitate) DVT (deep venous thrombosis) DVT prophylaxis Encounter for wound care Fall down embankment Fusion of spine H/O deep venous thrombosis Hypokalemia Hypotension Ileus Iron deficiency anemia Large bowel obstruction Malnutrition following gastrointestinal surgery Neurogenic bowel Open wound of abdominal wall Palliative care patient Physician orders for life-sustaining treatment (POLST) form indicates patient wish for cq-kuv-zcwcxjnszys status Right arm pain Visit for wound check Social History Smoking/Tobacco Use Status: Never Smoking risk assessment performed?: Yes Alcohol Intake: former Drug use: Occasionally Substance use type: marijuana Do you feel safe at home: Yes Do you feel safe in your relationship?: Yes Exam Const General: comfortable and no acute distress Orientation: alert and oriented x3 HENMT Head: normocephalic and atraumatic Resp Effort & Inspection: normal respiratory effort Auscultation: clear to auscultation bilaterally Cardio Rate: regular rate Rhythm: regular rhythm GI Palpation: soft, no hepatosplenomegaly, nontender and other (ostomy in place and looks healthy.)
--- NOTE | 2021-11-27 16:02 | W.PM.OP ---
Date of service: 11/27/21 Time of Service: 16:02 Operative Note Operative Note DATE OF PROCEDURE: 11/27/21 PRE-OP DIAGNOSIS: Osteomylitis Poor IV access POST-OP DIAGNOSIS: same PROCEDURE: Left Subclavian vein Port-a-cath SURGEON: Elinor Pedersen ANESTHESIA TYPE: Local By Surgeon and General:No Airway (Omer Roberson, MIR) Refer to Anesthesia Record ESTIMATED BLOOD LOSS: 10 PATHOLOGY: none sent COMPLICATIONS: None Patient was transported to: floor Patient's condition: stable Indications: Favio is in need of more permanent IV access for his antibiotics which he will need for some time. We discussed placing a PORT in the left or right subclavian vein. Risks, benefits, complications of Mediport placement were reviewed with the patient. Complications include but are not limited to bleeding, infection, wound dehiscence, skin necrosis, seroma, hematoma, injury to subclavian vein or superior vena cava, pneumothorax, venous thrombosis and malfunction of the port. Questions were entertained and answered to his satisfaction and he wished to proceed. No guarantees were given or implied. Procedure Description: After informed consent was obtained the patient was taken to the operating room and placed in supine position. The patient was placed under deep sedation and once comfortable the right and left chest were prepped and draped in a sterile surgical fashion. At this point a timeout was done. The patient's name, date of , procedure to be done, potential complications, DVT prophylaxis, antibiotic given were all reviewed. Fire risk was assessed. Next .25 % bupivocaine was injected around the clavicle on the left side as well as along the dermis and into the subcutaneous tissue of her chest wall. A power port kit was opened and using the large 18-gauge needle the subclavian vein was found and venous blood was easily aspirated. The syringe was removed and the guidewire was placed without any difficulty into the subclavian vein. The needle was removed. Fluoroscopy was then done which confirmed the placement of the guidewire. A small incision was made in the skin were the guidewire entered. An incision was made with a 15 blade. Using cautery a pocket was created for the port. Using the tunneler the catheter was tunneled from the newly created pocket to the guidewire. The dilator and sheath were then placed over the guidewire into the subclavian vein. The dilator and guidewire were removed. The catheter was then advanced through the sheath into the subclavian vein. While holding the catheter in place at the skin the sheath was removed. Fluoroscopy was then used again and the catheter was noted to be within the ventricle and so it was pulled up until it was just above the atrium. The catheter was then cut to the right length and attached to the port. The port was placed into the pocket and fit snugly. Blood was aspirated from the port without difficulty. The port was then flushed with another 10 cc of heparin. The skin was closed using 4-0 Vicryl. The skin was cleaned and dried and skin affix was applied to the port site as well as to the small stab incision underneath the clavicle. The patient was woken up and taken back to same day surgery in stable condition. Sponge, instrument, and needle counts were correct at the end of the case. A stat chest x-ray was ordered and was pending at the time of this dictation.
--- NOTE | 2021-11-27 16:38 | W.ANESPOSTOP ---
Postoperative Evaluation Date, Time and Location Date Performed: 11/27/21 Time Performed: 16:22 Patient Location: Med/Surg Vital Signs Most Recent Manually Entered Vital Signs: Adult Blood Pressure: 122/77 Heart Rate: 75 Respirations: 17 Oxygen Saturation (%): 96 Temperature (C): 36.4 C Pain Score (0-10 Scale): 0 Assessment Mental Status: Awake (Alert & Oriented to Patient Baseline) Airway and Respiratory Function: Patent airway with normal (patient baseline) respiratory exam Cardiovascular Function: Hemodynamically Stable Hydration Status: Adequately Hydrated Nausea & Vomiting: No Nausea or Vomiting Pain: Pt. Denies Any Pain Peripheral Nerve Block: Patient did not receive a nerve block
[2021-11-27 16:39] VITALS: BP 122/77; PULSE 75; RESP 17; TEMPC 36.4; O2SAT 96
== END 2021-11-27 16:22 | disposition home or self-care (01) ==
LOC: SUR 11-28 09:04
PROVIDERS: PCP Nurse Practitioner Family; Visit Provider Surgery
PROC: (CPT 36561; principal; 2021-11-27 14:45)
DX: M86.171 Other acute osteomyelitis, right ankle and foot (principal); G82.50 Quadriplegia, unspecified
CPT/HCPCS: 36561; 77001; C1788; J2001

== ENCOUNTER 2022-02-07 14:40 | Outpatient (REF) | payer BC, MEDICAID, SELFPAY | END 2022-02-07 14:41 | disposition home or self-care (01) | LOC: LBN 14:40 | PROVIDERS: PCP Nurse Practitioner Family; Visit Provider Family Medicine | DX: L89.310 Pressure ulcer of right buttock, unstageable (principal); M46.28 Osteomyelitis of vertebra, sacral and sacrococcygeal region | CPT/HCPCS: 87077; 87070; 87186; 87205 ==

== ENCOUNTER 2022-02-19 12:12 | Outpatient (REF) | payer BC, MEDICAID, SELFPAY | END 2022-02-19 12:13 | disposition home or self-care (01) | LOC: LBN 12:12 | PROVIDERS: PCP Nurse Practitioner Family; Visit Provider Family Medicine | DX: L89.310 Pressure ulcer of right buttock, unstageable (principal); M46.28 Osteomyelitis of vertebra, sacral and sacrococcygeal region | CPT/HCPCS: 87077; 87070; 87186; 87205 ==

== ENCOUNTER 2022-02-24 10:31 | Emergency (ER) | payer BC, MEDICAID, SELFPAY ==
[2022-02-24] VITALS (65 sets, daily range): BP systolic 94–169; BP diastolic 67–96; PULSE 59–104; RESP 18; TEMP 37; O2SAT 93–98
--- NOTE | 2022-02-24 10:35 | ED.GENADUL_ITS ---
Discharge Plan Disposition Patient Disposition: STILL A PATIENT Discharge Details Primary Care Provider: Rayna Pino ED Provider: Jorge A Valdez Home Meds and New Rx's Prescriptions: No Action Santyl 250 unit/gram Ointment 0 g topical DAILY Qty: 1 0RF cholecalciferol (vitamin D3) 25 mcg (1,000 unit) Tablet 1,000 units PO DAILY Qty: 30 0RF Phlexy-Vits Powder In Packet 1 packet PO TID Qty: 90 0RF trimethobenzamide 300 mg Capsule 300 mg PO QID PRN PRNQty: 30 0RF Enema Disposable 19-7 gram/118 mL Enema 133 ml KS .EVERY 3 DAYS PRN PRN (Reason: Constipation) Qty: 665 0RF magnesium hydroxide [Milk of Magnesia] 400 mg/5 mL Suspension 30 ml PO DAILY PRN PRN (Reason: Constipation) Qty: 355 0RF Myrbetriq 25 mg Tablet Extended Release 24 Hr 25 mg PO DAILY Qty: 30 0RF lorazepam 1 mg Tablet 1 mg PO DAILY@1999 MDD 1 mg Qty: 5 0RF hydrocortisone 1 % Cream With Perineal Applicator 1 applic topical BID Qty: 28.4 0RF bisacodyl 10 mg Suppository 10 mg KS DAILY PRN PRN (Reason: Constipation) Qty: 10 0RF diphenhydramine HCl 25 mg Capsule 50 mg PO 1999 Qty: 60 0RF mirtazapine 30 mg tablet 30 mg PO QHS Qty: 30 0RF acetaminophen [Tylenol] 325 mg tablet 650 mg PO Q6H PRN PRN (Reason: fever or pain) Qty: 30 0RF ascorbic acid (vitamin C) 500 mg Tablet 500 mg PO BID Qty: 60 0RF diazepam 2 mg Tablet 2 mg PO TID Qty: 15 0RF pantoprazole 40 mg Tablet,Delayed Release (Dr/Ec) 40 mg PO DAILY Qty: 30 0RF lidocaine 5 % Adhesive Patch,Medicated 2 patch TOPICAL DAILY Qty: 60 0RF docusate sodium [Colace] 100 mg capsule 100 mg PO TID Qty: 90 0RF polyethylene glycol 3350 [Miralax] 17 gram/dose powder 17 g PO DAILY Qty: 238 0RF multivitamin,tx-minerals Tablet 1 tab PO DAILY Qty: 30 0RF senna 8.6 mg capsule 17.2 mg PO BID Qty: 120 0RF duloxetine 60 mg capsule,delayed release(DR/EC) 60 mg PO DAILY Qty: 30 0RF Label Comments: TAKE ONE CAPSULE BY MOUTH ONCE DAILY Mag 64 64 mg Tablet,Delayed Release (Dr/Ec) 128 mg PO BID Qty: 120 0RF Lactobacillus acidoph-L.bulgar [Floranex] 1 million cell tablet 1 tab PO TID Qty: 90 0RF albuterol sulfate 90 mcg/actuation aerosol powdr breath activated 2 inh inhalation Q6H PRN PRN (Reason: shortness of breath or wheezing) Qty: 1 0RF Lactobacillus acidoph-L.bulgar [Floranex] 1 million cell tablet 1 tab TID 0RF Mag-Delay 64 mg tablet,delayed release (DR/EC) 128 mg PO BID 0RF ciprofloxacin HCl [Cipro] 500 mg Tablet 500 mg PO BID 0RF Medical Decision Making <KAN Randolph - Last Filed: 02/24/22 15:00> 56-year-old gentleman, quadriplegia, ostomy bag, suprapubic catheter, presents for evaluation of worsening acute on chronic decubitus ulcer. He was admitted for initially 8 months and subsequently nearly 4 months for his recent quadriplegia and multiple subsequent complications, various osteomyelitis sites. Patient was treated with both oral cefdinir and then switched over to Cipro. Clinically he appears well, nontoxic, nonseptic appearing. He does appear to have a decubitus ulcer but there is no active drainage, signs of abscess, or severe infection. Plan is to obtain IV access, CBC, CMP, lipase, blood culture and urinalysis and reassess. Patient reports wound care does come to his residence every other day for wound care of the chronic decubitus ulcer Patient remains hemodynamically stable. No evidence of leukocytosis. Lactate normal at 0.7. Chemistries also unremarkable. Case discussed with Dr. Dallas. Plan is to add on inflammatory markers. If unremarkable discharge home, if positive will need admission for MRI and likely treatment for osteomyelitis. CRP 4.25, ESR 35 I contacted the radiology department, can obtain MRI of the pelvis with and without contrast at approximately 4 PM. Urinalysis reveals moderate leuk esterase greater than 50 white and red cells, moderate bacteria, culture indicated. In the setting of a suprapubic catheter, question colonization. Patient without fever and/or leukocytosis. Is already is already on oral antibiotic therapy. Will await culture and sensitivity At time of signout pending MRI. If MRI positive will require admission for osteomyelitis. Medical Records Medical records reviewed: Yes I reviewed the patient's medical records. Lab Data Lab results reviewed: Yes I reviewed the patient's lab results. Labs: 02/24/22 13:40 Urine - Reflex from Ua Urine Culture - Pending 02/24/22 11:25 Buttock - Left Wound Culture - Pending 02/24/22 11:25 Buttock - Left Gram Stain - Final Laboratory Tests Range/Units 02/24/22 02/24/22 02/24/22 11:22 11:22 11:22 WBC (4.4-10.8) 10^3/uL 9.01 RBC (4.36-5.78) 10^6/uL 4.34 L Hgb (13.5-17.5) g/dL 12.0 L Hct (40.0-50.0) % 37.7 L MCV (80-95) fL 86.9 MCH (27.0-33.0) pg 27.6 MCHC (32.0-36.0) % 31.8 L RDW (11.8-14.1) % 13.8 Plt Count (130-400) 10^3/uL 233 MPV (8.0-11.0) fL 10.2 Immature Gran % 0.4 Neutrophils % 65.9 Lymphocytes % 22.5 Monocytes % 6.3 Eosinophils % 4.3 Basophils % 0.6 Nucleated RBC % (0.0-0.3) % 0.0 Absolute Neutrophils (1.2-6.7) 10^3/uL 5.93 Absolute Lymphocytes (1.2-3.4) 10^3/uL 2.03 Absolute Monocytes (0.1-0.8) 10^3/uL 0.57 Absolute Eosinophils (0.0-0.7) 10^3/uL 0.39 Absolute Basophils (0.0-0.2) 10^3/uL 0.05 ESR (0-20) mm/hr VBG Lactate (0.6-1.4) mmol/L 0.7 Sodium (136-145) mmol/L 140 Potassium (3.5-5.1) mmol/L 4.2 Chloride (98-107) mmol/L 106 Carbon Dioxide (21.0-32.0) mmol/L 28.4 Anion Gap (3-11) mmol/L 5.6 BUN (7-18) mg/dL 10 Creatinine (0.70-1.30) mg/dL 0.8 Estimated GFR/1.73 m2 (mL/min/1.73m2) >= 60.00 Glucose (74-106) mg/dL 98 Calcium (8.5-10.1) mg/dL 8.9 Total Bilirubin (0.2-1.0) mg/dL 0.4 AST (15-37) U/L 14 L ALT (16-63) U/L 19 Alkaline Phosphatase (46-116) U/L 94 C-Reactive Protein (0.0-0.3) mg/dL Total Protein (6.4-8.2) g/dL 6.9 Albumin (3.4-5.0) g/dL 3.2 L Urine Color (Yellow) Urine Clarity (Clear) Urine pH (5-8) Ur Specific [place] (1.005-1.025) Urine Protein (Negative) mg/dL Urine Ketones (Negative) mg/dL Urine Blood (Negative) Urine Nitrite (Negative) Urine Bilirubin (Negative) Urine Urobilinogen (Up TO 0.2) EU/dL Ur Leukocyte Esterase (Negative) Urine RBC (0-2) HPF Urine WBC (0-5) HPF Ur Epithelial Cells (Negative) HPF Urine Crystals (Negative) HPF Urine Bacteria (Negative) HPF Urine Casts (Negative) LPF Urine Mucus (Negative) Ur Culture Indicated? Urine Glucose (Negative) mg/dL Range/Units 02/24/22 02/24/22 02/24/22 11:22 11:22 13:40 WBC (4.4-10.8) 10^3/uL RBC (4.36-5.78) 10^6/uL Hgb (13.5-17.5) g/dL Hct (40.0-50.0) % MCV (80-95) fL MCH (27.0-33.0) pg MCHC (32.0-36.0) % RDW (11.8-14.1) % Plt Count (130-400) 10^3/uL MPV (8.0-11.0) fL Immature Gran % Neutrophils % Lymphocytes % Monocytes % Eosinophils % Basophils % Nucleated RBC % (0.0-0.3) % Absolute Neutrophils (1.2-6.7) 10^3/uL Absolute Lymphocytes (1.2-3.4) 10^3/uL Absolute Monocytes (0.1-0.8) 10^3/uL Absolute Eosinophils (0.0-0.7) 10^3/uL Absolute Basophils (0.0-0.2) 10^3/uL ESR (0-20) mm/hr 35 H VBG Lactate (0.6-1.4) mmol/L Sodium (136-145) mmol/L Potassium (3.5-5.1) mmol/L Chloride (98-107) mmol/L Carbon Dioxide (21.0-32.0) mmol/L Anion Gap (3-11) mmol/L BUN (7-18) mg/dL Creatinine (0.70-1.30) mg/dL Estimated GFR/1.73 m2 (mL/min/1.73m2) Glucose (74-106) mg/dL Calcium (8.5-10.1) mg/dL Total Bilirubin (0.2-1.0) mg/dL AST (15-37) U/L ALT (16-63) U/L Alkaline Phosphatase (46-116) U/L C-Reactive Protein (0.0-0.3) mg/dL 4.25 H Total Protein (6.4-8.2) g/dL Albumin (3.4-5.0) g/dL Urine Color (Yellow) Yellow Urine Clarity (Clear) Cloudy Urine pH (5-8) 8.0 Ur Specific [place] (1.005-1.025) 1.025 Urine Protein (Negative) mg/dL 30 H Urine Ketones (Negative) mg/dL Negative Urine Blood (Negative) Moderate H Urine Nitrite (Negative) Positive H Urine Bilirubin (Negative) Negative Urine Urobilinogen (Up TO 0.2) EU/dL 0.2 Ur Leukocyte Esterase (Negative) Moderate H Urine RBC (0-2) HPF >50 H Urine WBC (0-5) HPF >50 H Ur Epithelial Cells (Negative) HPF Few Urine Crystals (Negative) HPF Few Triple Phos Urine Bacteria (Negative) HPF Moderate Urine Casts (Negative) LPF 3-5 Coarse Granular Urine Mucus (Negative) Negative Ur Culture Indicated? Yes Urine Glucose (Negative) mg/dL Negative HPI <KAN Randolph - Last Filed: 02/24/22 15:00> General Mode of arrival: EMS . Date/Time Provider Initiated Documentation: 02/24/22 10:35 . Limitations to Documentation: no limitations . Information obtained by: patient and EMS . HPI Narrative: This is a 56-year-old gentleman, with a complicated past medical history that includes quadriplegia chronic sacral and other sites osteomylelitis, colostomy, suprapubic cath, insomnia, depression, palliative care patient, neurogenic bladder, presenting to the ER today via EMS for evaluation of an acute on chronic infection of his buttock decubitus ulcer-wound. Patient reports feeling well, no fevers or chills. No acute concerns or complaints at this time. Feels as though he is getting adequate care at his residence as well as wound care that is coming in every other day. He was on cefdinir for a total of 7 days, finished that on 02-17 and began Cipro on 02-19. Sent to the ER for further evaluation. Related Data Home Medications Medication Instructions Recorded Confirmed collagenase clostridium histo. 250 0 g TOPICAL DAILY #1 g 08/02/21 02/13/22 unit/gram topical ointment (Santyl) Lactobacillus acidoph-L.bulgaricus 1 tab PO TID #90 tab 01/08/22 02/13/22 1 million cell tablet (Floranex) acetaminophen 325 mg tablet 650 mg PO Q6H PRN PRN #30 tab 01/08/22 02/13/22 (Tylenol) albuterol sulfate 90 mcg/actuation 2 inh INHALATION Q6H PRN PRN #1 ea 01/08/22 02/13/22 breath activated powder inhaler ascorbic acid (vitamin C) 500 mg 500 mg PO BID #60 tab 01/08/22 02/13/22 tablet bisacodyl 10 mg rectal suppository 10 mg KS DAILY PRN PRN #10 ea 01/08/22 02/13/22 cholecalciferol (vitamin D3) 25 1,000 units PO DAILY #30 tab 01/08/22 02/24/22 mcg (1,000 unit) tablet diazepam 2 mg tablet 2 mg PO TID #15 tab 01/08/22 02/24/22 diphenhydramine HCl 25 mg capsule 50 mg PO 1999 #60 cap 01/08/22 02/24/22 docusate sodium 100 mg capsule 100 mg PO TID #90 cap 01/08/22 02/24/22 (Colace) duloxetine 60 mg capsule,delayed 60 mg PO DAILY #30 cap 01/08/22 02/24/22 release hydrocortisone 1 % topical cream 1 applic TOPICAL BID #28.4 g 01/08/22 02/13/22 with perineal applicator lidocaine 5 % topical patch 2 patch TOPICAL DAILY #60 ea 01/08/22 02/13/22 lorazepam 1 mg tablet 1 mg PO DAILY@1999 #5 tab MDD 1 mg 01/08/22 02/24/22 magnesium chloride 64 mg 128 mg PO BID #120 tab 01/08/22 02/13/22 (magnesium chloride) tablet,delayed release (Mag 64) magnesium hydroxide 400 mg/5 mL 30 ml PO DAILY PRN PRN #355 ml 01/08/22 02/13/22 oral suspension (Milk of Magnesia) mirabegron 25 mg tablet,extended 25 mg PO DAILY #30 tab 01/08/22 02/24/22 release 24 hr (Myrbetriq) mirtazapine 30 mg tablet 30 mg PO QHS #30 tab 01/08/22 02/24/22 multivitamin,tx-minerals 1 tab PO DAILY #30 tab 01/08/22 02/13/22 nutritional supplements 1 packet PO TID #90 ea 01/08/22 02/13/22 (Phlexy-Vits) pantoprazole 40 mg tablet,delayed 40 mg PO DAILY #30 tab 01/08/22 02/24/22 release polyethylene glycol 3350 17 17 g PO DAILY #238 g 01/08/22 02/13/22 gram/dose oral powder (Miralax) sennosides 8.6 mg capsule (senna) 17.2 mg PO BID #120 cap 01/08/22 02/24/22 sodium phosphates 19 gram-7 133 ml KS .EVERY 3 DAYS PRN PRN 01/08/22 02/13/22 gram/118 mL enema (Enema #665 ml Disposable) trimethobenzamide 300 mg capsule 300 mg PO QID PRN PRN #30 cap 01/08/22 02/13/22 Lactobacillus acidoph-L.bulgaricus 1 tab TID 02/24/22 02/24/22 1 million cell tablet (Floranex) ciprofloxacin HCl 500 mg tablet 500 mg PO BID 02/24/22 02/24/22 (Cipro) magnesium chloride 64 mg 128 mg PO BID 02/24/22 02/24/22 (magnesium chloride) tablet,delayed release (Mag-Delay) Previous Rx's Medication Instructions Recorded collagenase clostridium histo. 250 0 g TOPICAL DAILY #1 g 08/02/21 unit/gram topical ointment (Santyl) Lactobacillus acidoph-L.bulgaricus 1 tab PO TID #90 tab 01/08/22 1 million cell tablet (Floranex) acetaminophen 325 mg tablet 650 mg PO Q6H PRN PRN #30 tab 01/08/22 (Tylenol) albuterol sulfate 90 mcg/actuation 2 inh INHALATION Q6H PRN PRN #1 ea 01/08/22 breath activated powder inhaler ascorbic acid (vitamin C) 500 mg 500 mg PO BID #60 tab 01/08/22 tablet bisacodyl 10 mg rectal suppository 10 mg KS DAILY PRN PRN #10 ea 01/08/22 cholecalciferol (vitamin D3) 25 1,000 units PO DAILY #30 tab 01/08/22 mcg (1,000 unit) tablet diazepam 2 mg tablet 2 mg PO TID #15 tab 01/08/22 diphenhydramine HCl 25 mg capsule 50 mg PO 1999 #60 cap 01/08/22 docusate sodium 100 mg capsule 100 mg PO TID #90 cap 01/08/22 (Colace) duloxetine 60 mg capsule,delayed 60 mg PO DAILY #30 cap 01/08/22 release hydrocortisone 1 % topical cream 1 applic TOPICAL BID #28.4 g 01/08/22 with perineal applicator lidocaine 5 % topical patch 2 patch TOPICAL DAILY #60 ea 01/08/22 lorazepam 1 mg tablet 1 mg PO DAILY@1999 #5 tab MDD 1 mg 01/08/22 magnesium chloride 64 mg 128 mg PO BID #120 tab 01/08/22 (magnesium chloride) tablet,delayed release (Mag 64) magnesium hydroxide 400 mg/5 mL 30 ml PO DAILY PRN PRN #355 ml 01/08/22 oral suspension (Milk of Magnesia) mirabegron 25 mg tablet,extended 25 mg PO DAILY #30 tab 01/08/22 release 24 hr (Myrbetriq) mirtazapine 30 mg tablet 30 mg PO QHS #30 tab 01/08/22 multivitamin,tx-minerals 1 tab PO DAILY #30 tab 01/08/22 nutritional supplements 1 packet PO TID #90 ea 01/08/22 (Phlexy-Vits) pantoprazole 40 mg tablet,delayed 40 mg PO DAILY #30 tab 01/08/22 release polyethylene glycol 3350 17 17 g PO DAILY #238 g 01/08/22 gram/dose oral powder (Miralax) sennosides 8.6 mg capsule (senna) 17.2 mg PO BID #120 cap 01/08/22 sodium phosphates 19 gram-7 133 ml KS .EVERY 3 DAYS PRN PRN 01/08/22 gram/118 mL enema (Enema #665 ml Disposable) trimethobenzamide 300 mg capsule 300 mg PO QID PRN PRN #30 cap 01/08/22 Allergies Allergy/AdvReac Type Severity Reaction Status Date / Time No Known Allergies Allergy Verified 02/06/22 13:10 General LU: 2 Review of Systems <KAN Randolph - Last Filed: 02/24/22 15:00> Constitutional Constitutional: Denies fever(s) Cardiovascular Cardiovascular: Denies chest pain Respiratory Respiratory: Denies cough Gastrointestinal Gastrointestinal: Denies hematochezia Genitourinary Genitourinary: Denies hematuria Integumentary/Breasts Skin/Breast: Denies rash PFSH <KAN Randolph - Last Filed: 02/24/22 15:00> All Active Problems Palliative care patient (Acute) Bronchospasm (Acute) Neurogenic bowel (Chronic) Insomnia (Acute) Weight gain (Acute) Neck pain (Acute) Decubitus skin ulcer (Acute) Insomnia (Acute) Constipation due to neurogenic bowel (Acute) Chronic recurrent multifocal osteomyelitis (Chronic) S/P colostomy (Chronic) Acute osteomyelitis of sacrum (Chronic) Major depressive disorder (Chronic) Neurogenic bladder (Chronic) Quadriplegia (Chronic) Medical History Acute embolism and thrombosis of deep vein of right lower extremity Anxiety disorder Aspiration into airway C. difficile colitis Constipation Decubitus ulcer of buttock, stage 4 Dislocation of C6/C7 cervical vertebrae DNR (do not resuscitate) DVT (deep venous thrombosis) DVT prophylaxis Encounter for wound care Fall down embankment Fusion of spine H/O deep venous thrombosis Hypokalemia Hypotension Ileus Iron deficiency anemia Large bowel obstruction Malnutrition following gastrointestinal surgery Open wound of abdominal wall Physician orders for life-sustaining treatment (POLST) form indicates patient wish for [id number] status Right arm pain Visit for wound check Surgical History History of infusaport central venous catheter insertion Suprapubic catheter Social History Smoking/Tobacco Use Status: Never Smoking risk assessment performed?: Yes Alcohol Intake: former Drug use: Occasionally Substance use type: marijuana Do you feel safe at home: Yes Do you feel safe in your relationship?: Yes Exam <KAN Randolph - Last Filed: 02/24/22 15:00> Const General: cooperative, comfortable and no acute distress Orientation: alert, awake and oriented x3 HENMT Head: normal to inspection, normocephalic and atraumatic Face and sinus: normal facial exam Mouth: moist mucous membranes Eyes General: appearance normal, both eyes and all related structures Conjunctivae: conjunctivae normal Neck Neck: normal visual inspection, trachea midline and supple Resp Effort & Inspection: normal respiratory effort and able to speak in complete sentences Auscultation: clear to auscultation bilaterally Cardio Rate: regular rate Rhythm: regular rhythm GI Other: Normal functioning ostomy bag and suprapubic catheter. Normal bowel sounds. No signs of cellulitis or secondary infection Back/Spine/Pelvis Other: There is a foul-smelling stage IV decubitus ulcer to the sacrum-left buttocks. There is no active drainage. No lymphangitic streaking. Minimal warmth and erythema locally. Skin Rashes: no rashes Neuro General: patient alert and patient awake Other: Baseline quadriplegia Extrem General: capillary refill normal Psych Appearance: grossly normal Mental Status: mental status grossly normal Sign Out <KAN Randolph - Last Filed: 02/24/22 15:00> Sign Out Data: Sign Out Comment: MRI of pelvis with and without contrast at approximately 4 PM to rule out osteomyelitis of the pelvis-sacrum. Patient with baseline quadriplegia and potentially worsening decubitus ulcer. Recently finished cefdinir and is now on oral Cipro. Last updated by Boo Mosquera PA at 02/24/22 14:59
[2022-02-24 11:28] LABS: Abs Immature Grans 0.04 10^3/uL (0.0-0.06); Absolute Basophil Count 0.05 10^3/uL (0.0-0.2); Absolute Eosinophil Count 0.39 10^3/uL (0.0-0.7); Absolute Lymphocyte Count 2.03 10^3/uL (1.2-3.4); Absolute Monocyte Count 0.57 10^3/uL (0.1-0.8); Absolute Neutrophil Count 5.93 10^3/uL (1.2-6.7); Basophils % 0.6; Eosinophils % 4.3; HCT 37.7 % (40.0-50.0); Immature Grans % 0.4; Lactate 0.7 mmol/L (0.6-1.4); Lymphocytes % 22.5; MCH 27.6 pg (27.0-33.0); MCHC 31.8 % (32.0-36.0); MCV 86.9 fL (80-95); MPV 10.2 fL (8.0-11.0); Monocytes % 6.3; Neutrophils % 65.9; Platelet Count 233 10^3/uL (130-400); RBC 4.34 10^6/uL (4.36-5.78); RDW 13.8 % (11.8-14.1); RDW-SD 44.6 fL; WBC 9.01 10^3/uL (4.4-10.8)
[2022-02-24 11:42] LABS: ALT 19 U/L (16-63); AST 14 U/L (15-37); Albumin 3.2 g/dL (3.4-5.0); Alkaline Phosphatase 94 U/L (46-116); Anion Gap 5.6 mmol/L (3-11); BUN 10 mg/dL (7-18); Bilirubin, Total 0.4 mg/dL (0.2-1.0); CO2 28.4 mmol/L (21.0-32.0); CREATININE 0.8 mg/dL (0.70-1.30); Calcium 8.9 mg/dL (8.5-10.1); Chloride 106 mmol/L (98-107); Glucose 98 mg/dL (74-106); Potassium 4.2 mmol/L (3.5-5.1); Sodium 140 mmol/L (136-145); Total Protein 6.9 g/dL (6.4-8.2)
--- NOTE | 2022-02-24 13:45 | DI.MRI_ITS ---
Exam(s) MR PELVIS WO/W EXAM: MR PELVIS WO/W CLINICAL HISTORY: History of osteomyelitis, stage IV ulcer TECHNIQUE: Multiplanar multisequence MRI of Pelvis was performed. CONTRAST MATERIAL: IV Contrast: 20 mL of Dotarem contrast administered. COMPARISON: MR MR PELVIS WO/W from 06/17/2021 FINDINGS: Examination is limited secondary to patient motion artifact. Bones: There is no fracture or contusion pattern. No significant joint effusion or labral injury is present. There is marrow edema seen in the left ischial tuberosity adjacent to the patient's decubitu s ulcer. This has increased compared to the prior examination. No definite cortical disruption is s een in the left tuberosity. The edema seen in the right ischial tuberosity on the prior examination has resolved. No focal fluid collection is seen. The SI joints and symphysis pubis are well [place] leonor. Musculotendinous structures: There is diffuse muscular edema. There is a Beck catheter in place. There is no evidence of suspicious enhancement. IMPRESSION: 1. Decubitus ulcer overlying the left ischial tuberosity. No focal fluid collection is seen to sugge st an abscess. 2. Interval increase in the marrow edema of the left ischial tuberosity. No definite cortical disrup tion. This may be reactive related to the adjacent ulcer but early osteomyelitis cannot be excluded. 3. Resolution of the marrow edema previously seen in the right ischial tuberosity. DATA REPOSITORY:
[2022-02-24 13:49] LABS: Bilirubin Negative (Negative); Blood Moderate (Negative); Clarity Cloudy (Clear); Glucose Negative (Negative); Ketones Negative (Negative); Leukocyte Esterase Moderate (Negative); Nitrite Positive (Negative); Specific Gravity 1.025 (1.005-1.025); Urobilinogen 0.2 EU/dL (Up TO 0.2)
[2022-02-24 13:49] LABS: ESR 35 mm/hr (0-20)
[2022-02-24 13:57] LABS: Bacteria Moderate HPF (Negative); C & S Indicated? Yes; Casts 3-5 Coarse Granular LPF (Negative); Crystals Few Triple Phos HPF (Negative); Epithelial Cells Few HPF (Negative); Mucus Negative (Negative); RBC >50 HPF (0-2); WBC >50 HPF (0-5)
[2022-02-24 13:57] LABS: C-Reactive Protein 4.25 mg/dL (0.0-0.3)
[2022-02-24] MEDS: Normal Saline Flush 10 ML SYR IVP (17:44)
[2022-02-24] MEDS: Gadoterate meglumine 20 ML VIAL IVP (17:44)
--- NOTE | 2022-02-24 18:03 | ED.PROG_ITS ---
Date of service: 02/24/22 Time of Service: 15:45 Medical Decision Making Patient signed out to me pending MR for evaluation of osteomyelitis. Please see initial ED visit note for HPI, physical exam, review of systems. Patient otherwise in stable condition and review of labs show no significant elevation of WBCs, normal lactate. Patient does have elevated CRP and ESR. Did review imaging and radiologist interpretation that does show some changes compared to last study but findings could be reactive change versus early osteomyelitis. Called and spoke with Dr. Pedersen in regards to patient case. She is well familiar with the patient. After discussion of laboratory findings along with patient condition including afebrile and overall well in appearance she recommended for patient to continue on ciprofloxacin and to continue acute outpatient wound care. She did recommend that patient be placed upon primary care list for follow-up and further discussion of hyperbaric chamber whether that [facility] or at [facility]. I agree that this would be beneficial to aid in patient's healing. Did discuss plan of care with patient and patient is agreeable and states he would prefer to go home. With further discussion patient did state that he was at a concert a couple days ago and sat upright in his chair which may have contributed to the appearance of worsening but he states overall he feels well. I feel this is also reassuring. Patient encouraged to return for any new or sig nificant worsening of symptoms. After discussion of diagnosis and plan of care patient has no further needs, questions, or concerns and states clear understanding to return to the emergency department for any worsening symptoms. Imaging Data Radiologic Study: Imaging: MRI Radiologist's impression: IMPRESSION: 1. Large decubitus ulcer adjacent to the left ischial tuberosity with progression of abnormal signal in the left ischial tuberosity but no definite cortical disruption. Findings could be due to reactive change or early changes of osteomyelitis 2. Resolution of the previous edema that was in the right ischial tuberosity 3. Sequelae of chronic quadriplegia with diffuse muscular edema 4. Other incidental findings as described. Sign Out Sign Out Data: Sign Out Comment: MRI of pelvis with and without contrast at approximately 4 PM to rule out osteomyelitis of the pelvis-sacrum. Patient with baseline quadriplegia and potentially worsening decubitus ulcer. Recently finished cefdinir and is now on oral Cipro. Last updated by Boo Mosquera PA at 04/25/22 14:59 Discharge Plan Disposition Patient Disposition: HOME Condition: Stable Discharge Details Clinical Impression: Decubitus skin ulcer Primary Care Provider: Rayna Pino ED Provider: Jorge A Valdez Home Meds and New Rx's Prescriptions: No Action Santyl 250 unit/gram Ointment 0 g topical DAILY Qty: 1 0RF cholecalciferol (vitamin D3) 25 mcg (1,000 unit) Tablet 1,000 units PO DAILY Qty: 30 0RF Phlexy-Vits Powder In Packet 1 packet PO TID Qty: 90 0RF trimethobenzamide 300 mg Capsule 300 mg PO QID PRN PRNQty: 30 0RF Enema Disposable 19-7 gram/118 mL Enema 133 ml NM .EVERY 3 DAYS PRN PRN (Reason: Constipation) Qty: 665 0RF magnesium hydroxide [Milk of Magnesia] 400 mg/5 mL Suspension 30 ml PO DAILY PRN PRN (Reason: Constipation) Qty: 355 0RF Myrbetriq 25 mg Tablet Extended Release 24 Hr 25 mg PO DAILY Qty: 30 0RF lorazepam 1 mg Tablet 1 mg PO DAILY@1999 MDD 1 mg Qty: 5 0RF hydrocortisone 1 % Cream With Perineal Applicator 1 applic topical BID Qty: 28.4 0RF bisacodyl 10 mg Suppository 10 mg NM DAILY PRN PRN (Reason: Constipation) Qty: 10 0RF diphenhydramine HCl 25 mg Capsule 50 mg PO 1999 Qty: 60 0RF mirtazapine 30 mg tablet 30 mg PO QHS Qty: 30 0RF acetaminophen [Tylenol] 325 mg tablet 650 mg PO Q6H PRN PRN (Reason: fever or pain) Qty: 30 0RF ascorbic acid (vitamin C) 500 mg Tablet 500 mg PO BID Qty: 60 0RF diazepam 2 mg Tablet 2 mg PO TID Qty: 15 0RF pantoprazole 40 mg Tablet,Delayed Release (Dr/Ec) 40 mg PO DAILY Qty: 30 0RF lidocaine 5 % Adhesive Patch,Medicated 2 patch TOPICAL DAILY Qty: 60 0RF docusate sodium [Colace] 100 mg capsule 100 mg PO TID Qty: 90 0RF polyethylene glycol 3350 [Miralax] 17 gram/dose powder 17 g PO DAILY Qty: 238 0RF multivitamin,tx-minerals Tablet 1 tab PO DAILY Qty: 30 0RF senna 8.6 mg capsule 17.2 mg PO BID Qty: 120 0RF duloxetine 60 mg capsule,delayed release(DR/EC) 60 mg PO DAILY Qty: 30 0RF Label Comments: TAKE ONE CAPSULE BY MOUTH ONCE DAILY Mag 64 64 mg Tablet,Delayed Release (Dr/Ec) 128 mg PO BID Qty: 120 0RF Lactobacillus acidoph-L.bulgar [Floranex] 1 million cell tablet 1 tab PO TID Qty: 90 0RF albuterol sulfate 90 mcg/actuation aerosol powdr breath activated 2 inh inhalation Q6H PRN PRN (Reason: shortness of breath or wheezing) Qty: 1 0RF Lactobacillus acidoph-L.bulgar [Floranex] 1 million cell tablet 1 tab TID 0RF Mag-Delay 64 mg tablet,delayed release (DR/EC) 128 mg PO BID 0RF ciprofloxacin HCl [Cipro] 500 mg Tablet 500 mg PO BID 0RF Discharge Instructions Additional Instructions: Please continue to take your medications as prescribed and specifically ensure that you continue your antibiotic regimen. Please follow previous recommendations for position changes that are frequent to relieve pressure from your decubitus ulcer. If you notice any new or significant worsening of symptoms please return immediately to the emergency department for reevaluation otherwise at this time you do not need to be admitted for IV antibiotics but may continue on oral pills. It is recommended that you follow-up with your primary care provider for further discussion on additional treatments that might improve your decubitus ulcer. Referrals: Rayna Pino [Primary Care Provider] - 3 days Discharge Data Discharge Date/Time-TO BE ENTERED AT DEPARTURE: 02/24/22 20:58
--- NOTE | 2022-02-24 18:14 | DI.VRAD_ITS ---
PROCEDURE INFORMATION: Exam: MR Pelvis Without and With Contrast, Musculoskeletal Exam date and time: 02/24/2022 5:00 PM Age: 56 years old Clinical indication: Other: Ulcer left buttocks; Patient HX: Quadriplegic TECHNIQUE: Imaging protocol: Magnetic resonance images of the pelvis without and with intravenous contrast. Exam focused on the musculoskeletal system. Contrast material: DOTAREM; Contrast volume: 20 ml; Contrast route: INTRAVENOUS (IV); COMPARISON: MR PELVIS WO/W 06/17/2021 1:[address] abdomen pelvis 03/30/2021. FINDINGS: Tubes, catheters and devices: Suprapubic catheter in the urinary bladder. Bones/joints: Abnormal T1 and T2 signal and enhancement in the left ischial tuberosity has progressed since the prior exam which could be due to reactive change or early changes of osteomyelitis. This involves an area of the ischium measuring approximately 3 cm in AP dimension. There is no definite cortical disruption of the cortex of the left ischial tuberosity. The cortex of the left posterior ischial tuberosity appears thickened which suggests that this more likely represents chronic reactive change. There has been resolution of the edema that was in the right ischial tuberosity on the 06/17/2021 exam.. Degenerative arthritis visualized lower lumbar spine. Small bilateral hip effusions. Muscles: Edema in the bilateral quadratus femoris muscles which can be seen in muscle strain or ischial femoral impingement. Diffuse edema in the muscles of the buttocks and thighs Soft tissues: Large ulceration adjacent to the left ischial tuberosity. This was present on the previous MRI and previous CT. The ulcer extends to the bone and is encased in skin folds of the buttock. The presence of the skin folds makes it difficult to measure the with of the ulceration. No discrete fluid collection is identified. Other findings: Images are degraded by motion. The bilateral hamstring tendons are diminutive and a appear chronically partially avulsed. IMPRESSION: 1. Large decubitus ulcer adjacent to the left ischial tuberosity with progression of abnormal signal in the left ischial tuberosity but no definite cortical disruption. Findings could be due to reactive change or early changes of osteomyelitis 2. Resolution of the previous edema that was in the right ischial tuberosity 3. Sequelae of chronic quadriplegia with diffuse muscular edema 4. Other incidental findings as described. Dictated and Authenticated by: Ana Luisa Parrish MD. Ordering:BOZENA Haddad MD
[2022-02-24] MEDS: Heparin 500 UNITS/5 ML SYRINGE (18:39)
== END 2022-02-24 20:58 | disposition home or self-care (01) ==
PROVIDERS: Physician Assistant; Emergency Provider Nurse Practitioner Family; PCP Nurse Practitioner Family
DX: L89.324 Pressure ulcer of left buttock, stage 4 (principal); G82.50 Quadriplegia, unspecified
CPT/HCPCS: 36415; 72197; 80053; 85652; 87077; 99283; 81003; 81015; 83605; 85025; 86140; 87070; 87086; 87186; 87205; 99284

== ENCOUNTER 2022-03-12 15:25 | Outpatient (REF) | payer BC, MEDICAID, SELFPAY ==
[2022-03-13 00:58] LABS: COVID-19 RT-PCR UVMMC Result Negative (Negative)
== END 2022-03-12 15:26 | disposition home or self-care (01) ==
LOC: NCHCN 15:25
PROVIDERS: PCP Family Medicine; Visit Provider Registered Nurse
DX: Z20.822 Contact with and (suspected) exposure to COVID-19 (principal); Z01.818 Encounter for other preprocedural examination
CPT/HCPCS: U0003

== ENCOUNTER 2022-03-16 14:16 | Outpatient (REF) | payer BC, MEDICAID, SELFPAY ==
[2022-03-16 14:39] LABS: C-Reactive Protein 3.82 mg/dL (0.0-0.3)
== END 2022-03-16 14:17 | disposition home or self-care (01) ==
LOC: LBN 14:16
PROVIDERS: PCP Nurse Practitioner Family; Visit Provider Family Medicine
DX: M46.28 Osteomyelitis of vertebra, sacral and sacrococcygeal region (principal)
CPT/HCPCS: 86140

== ENCOUNTER 2022-04-02 20:02 | Outpatient (REF) | payer BC, MEDICAID, SELFPAY ==
[2022-04-03 11:13] LABS: COVID-19 RT-PCR UVMMC Result Negative (Negative)
== END 2022-04-02 20:03 | disposition home or self-care (01) ==
LOC: LBN 20:02
PROVIDERS: PCP Nurse Practitioner Family; Visit Provider Registered Nurse
DX: Z20.822 Contact with and (suspected) exposure to COVID-19 (principal)
CPT/HCPCS: U0003

== ENCOUNTER 2022-04-08 22:02 | Outpatient (REF) | payer BC, MEDICAID, SELFPAY ==
[2022-04-08 22:40] LABS: Bilirubin Small (Negative); Blood Negative (Negative); Clarity Sl Cloudy (Clear); Glucose Negative (Negative); Ketones Trace mg/dL (Negative); Leukocyte Esterase Trace (Negative); Nitrite Positive (Negative); Specific Gravity 1.015 (1.005-1.025); Urobilinogen 0.2 EU/dL (Up TO 0.2); pH 8.5 (5-8)
[2022-04-08 22:54] LABS: WBC >50 HPF (0-5)
[2022-04-08 22:55] LABS: Bacteria Many HPF (Negative); Epithelial Cells Negative HPF (Negative); Other Cells Negative (Negative); RBC Negative HPF (0-2)
[2022-04-08 22:56] LABS: C & S Indicated? C&S Done As Ordered; Casts Negative LPF (Negative); Crystals Many Triple Phos HPF (Negative); Mucus Negative (Negative)
== END 2022-04-08 22:03 | disposition home or self-care (01) ==
LOC: LBN 22:02
PROVIDERS: PCP Nurse Practitioner Family; Visit Provider Family Medicine
DX: N39.0 Urinary tract infection, site not specified (principal)
CPT/HCPCS: 87077; 81003; 81015; 87086; 87186

== ENCOUNTER 2022-04-11 09:38 | Outpatient (REF) | payer BC, MEDICAID, SELFPAY ==
[2022-04-12 22:46] LABS: COVID-19 RT-PCR UVMMC Result Negative (Negative)
== END 2022-04-11 09:39 | disposition home or self-care (01) ==
LOC: LBN 09:38
PROVIDERS: PCP Nurse Practitioner Family; Visit Provider Nurse Practitioner Family
DX: Z20.822 Contact with and (suspected) exposure to COVID-19 (principal)
CPT/HCPCS: U0003

== ENCOUNTER 2022-04-25 20:41 | Outpatient (REF) | payer BC, MEDICAID, SELFPAY ==
[2022-04-27 11:00] LABS: COVID-19 RT-PCR UVMMC Result Negative (Negative)
== END 2022-04-25 20:42 | disposition home or self-care (01) ==
LOC: LBN 20:41
PROVIDERS: PCP Nurse Practitioner Family; Visit Provider Urology
DX: Z20.822 Contact with and (suspected) exposure to COVID-19 (principal); Z01.818 Encounter for other preprocedural examination
CPT/HCPCS: U0003

== ENCOUNTER 2022-04-28 07:37 | Day surgery (SDC) | payer BC, MEDICAID, SELFPAY ==
[2022-04-28 08:03] VITALS: BP 143/118; PULSE 56; RESP 16; TEMP 36.1; O2SAT 94
--- NOTE | 2022-04-28 08:09 | W.PM.HP.N ---
Date of service: 04/28/22 Time of Service: 08:09 Assessment and Plan Assessment and plan (1) Bladder stones: Status: Acute Assessment and plan: We will plan on doing a cystoscopy through the suprapubic tract and evacuate the bladder stone debris. I believe we will be able to accomplish the procedure with the patient's supine. History of Present Illness History of Present Illness Chief Complaint: Bladder stones Narrative: This is a 57-year-old gentleman who has a neurogenic bladder due to a spinal injury. He is managed with an indwelling suprapubic tube. The tube becomes plugged quite often with what appears to be stony debris. On CT scan there is a layer of stone material at the base of the bladder. This appears to be more gravel than it does to be a large stone particle. He presents now for cystoscopy through the suprapubic tract and evacuation of the stone debris. We will plan to analyze the debris and perhaps come up with a better plan for stone prevention in this gentleman. Review of Systems Narrative: No fevers or chills No vision change or dysphasia No diabetes or thyroid dysfunction No shortness of breath, cough or hemoptysis No chest pain or palpitations Neurogenic bowel. Has colostomy Quadraplegia. No seizures or strokes No bleeding disorders or anemia No gout PFSH All Active Problems Bladder stones (Acute) Palliative care patient (Acute) Bronchospasm (Acute) Neurogenic bowel (Chronic) Insomnia (Acute) Weight gain (Acute) Neck pain (Acute) Decubitus skin ulcer (Acute) Insomnia (Acute) Constipation due to neurogenic bowel (Acute) Chronic recurrent multifocal osteomyelitis (Chronic) S/P colostomy (Chronic) Acute osteomyelitis of sacrum (Chronic) Major depressive disorder (Chronic) Neurogenic bladder (Chronic) Quadriplegia (Chronic) Medical History Acute embolism and thrombosis of deep vein of right lower extremity Anxiety disorder Aspiration into airway C. difficile colitis Constipation Decubitus ulcer of buttock, stage 4 Dislocation of C6/C7 cervical vertebrae DNR (do not resuscitate) DVT (deep venous thrombosis) DVT prophylaxis Encounter for wound care Fall down embankment Fusion of spine H/O deep venous thrombosis Hypokalemia Hypotension Ileus Iron deficiency anemia Large bowel obstruction Malnutrition following gastrointestinal surgery Open wound of abdominal wall Physician orders for life-sustaining treatment (POLST) form indicates patient wish for [id number]-dez-zbfdnpqeyyd status Right arm pain Visit for wound check Surgical History History of infusaport central venous catheter insertion Suprapubic catheter Social History Smoking/Tobacco Use Status: Never Smoking risk assessment performed?: Yes Alcohol Intake: former Drug use: Daily Substance use type: marijuana Do you feel safe at home: Yes Do you feel safe in your relationship?: No Additional Social history: unable to assess privately Meds Allergies and Home Medications Allergies Allergy/AdvReac Type Severity Reaction Status Date / Time No Known Allergies Allergy Verified 04/25/22 11:46 Home Medications Medication Instructions Recorded Confirmed Type collagenase clostridium histo. 250 0 g topical DAILY #1 g 08/02/21 04/25/22 Rx unit/gram topical ointment (Santyl) Lactobacillus acidoph-L.bulgaricus 1 tab PO TID #90 tabs 01/08/22 04/25/22 Rx 1 million cell tablet (Floranex) acetaminophen 325 mg tablet 650 mg PO Q6H PRN PRN fever or 01/08/22 04/25/22 Rx (Tylenol) pain #30 tabs albuterol sulfate 90 mcg/actuation 2 inh inhalation Q6H PRN PRN 01/08/22 04/25/22 Rx breath activated powder inhaler shortness of breath or wheezing #1 ea ascorbic acid (vitamin C) 500 mg 500 mg PO BID #60 tabs 01/08/22 04/25/22 Rx tablet bisacodyl 10 mg rectal suppository 10 mg GA DAILY PRN PRN 01/08/22 04/25/22 Rx Constipation #10 ea cholecalciferol (vitamin D3) 25 1,000 units PO DAILY #30 tabs 01/08/22 04/25/22 Rx mcg (1,000 unit) tablet diazepam 2 mg tablet 2 mg PO TID #15 tabs 01/08/22 04/25/22 Rx diphenhydramine HCl 25 mg capsule 50 mg PO 2000 #60 caps 01/08/22 04/25/22 Rx docusate sodium 100 mg capsule 100 mg PO TID #90 caps 01/08/22 04/25/22 Rx (Colace) duloxetine 60 mg capsule,delayed 60 mg PO DAILY #30 caps 01/08/22 04/25/22 Rx release hydrocortisone 1 % topical cream 1 applic topical BID #28.4 grams 01/08/22 04/25/22 Rx with perineal applicator lorazepam 1 mg tablet 1 mg PO DAILY@1999 #5 tabs 01/08/22 04/25/22 Rx magnesium chloride 64 mg 128 mg PO BID #120 tabs 01/08/22 04/25/22 Rx (magnesium chloride) tablet,delayed release (Mag 64) magnesium hydroxide 400 mg/5 mL 30 ml PO DAILY PRN PRN 01/08/22 04/25/22 Rx oral suspension (Milk of Magnesia) Constipation #355 mL mirabegron 25 mg tablet,extended 25 mg PO DAILY #30 tabs 01/08/22 04/25/22 Rx release 24 hr (Myrbetriq) mirtazapine 30 mg tablet 30 mg PO QHS #30 tabs 01/08/22 04/25/22 Rx multivitamin,tx-minerals 1 tab PO DAILY #30 tabs 01/08/22 04/25/22 Rx nutritional supplements 1 packet PO TID #90 ea 01/08/22 04/25/22 Rx (Phlexy-Vits) pantoprazole 40 mg tablet,delayed 40 mg PO DAILY #30 tabs 01/08/22 04/25/22 Rx release polyethylene glycol 3350 17 17 g PO DAILY #238 grams 01/08/22 04/25/22 Rx gram/dose oral powder (Miralax) sennosides 8.6 mg capsule (senna) 17.2 mg PO BID #120 caps 01/08/22 04/25/22 Rx sodium phosphates 19 gram-7 133 ml GA .EVERY 3 DAYS PRN PRN 01/08/22 04/25/22 Rx gram/118 mL enema (Enema Constipation #665 mL Disposable) trimethobenzamide 300 mg capsule 300 mg PO QID PRN PRN #30 caps 01/08/22 04/25/22 Rx magnesium chloride 64 mg 128 mg PO BID 02/24/22 04/25/22 History (magnesium chloride) tablet,delayed release (Mag-Delay) acetic acid 0.25 % irrigation 50 ml irrigation Q6H PRN bladder 04/01/22 04/25/22 Rx solution stones #6,000 mL Exam Narrative Exam Narrative: Does not appear septic or toxic His vital signs are documented elsewhere His chest wall motion is normal. His lungs are clear Cardiac exam shows a regular rate and rhythm Abdominal exam reveals a suprapubic tube and colostomy (in left abdomen) He has quadriplegia He is awake, alert and oriented
--- NOTE | 2022-04-28 08:28 | W.ANESPRE ---
General Info Date of Service Date Performed: 04/28/22 Height: 6 ft 2 in Weight: 85.2 kg Body Mass Index (BMI): 24.1 Surgical Procedure: Operation Date: 04/28/22 08:40 Proposed Procedure Side Surgeon p Cystoscopy w/Stone Evacuation Ady Molina MD Meds Allergies and Home Medications Allergies Allergy/AdvReac Type Severity Reaction Status Date / Time No Known Allergies Allergy Verified 04/25/22 11:46 Home Medication Medication Instructions Recorded collagenase clostridium histo. 250 0 g topical DAILY #1 g 08/02/21 unit/gram topical ointment (Santyl) Lactobacillus acidoph-L.bulgaricus 1 tab PO TID #90 tabs 01/08/22 1 million cell tablet (Floranex) acetaminophen 325 mg tablet 650 mg PO Q6H PRN PRN fever or 01/08/22 (Tylenol) pain #30 tabs albuterol sulfate 90 mcg/actuation 2 inh inhalation Q6H PRN PRN 01/08/22 breath activated powder inhaler shortness of breath or wheezing #1 ea ascorbic acid (vitamin C) 500 mg 500 mg PO BID #60 tabs 01/08/22 tablet bisacodyl 10 mg rectal suppository 10 mg PA DAILY PRN PRN 01/08/22 Constipation #10 ea cholecalciferol (vitamin D3) 25 1,000 units PO DAILY #30 tabs 01/08/22 mcg (1,000 unit) tablet diazepam 2 mg tablet 2 mg PO TID #15 tabs 01/08/22 diphenhydramine HCl 25 mg capsule 50 mg PO 1999 #60 caps 01/08/22 docusate sodium 100 mg capsule 100 mg PO TID #90 caps 01/08/22 (Colace) duloxetine 60 mg capsule,delayed 60 mg PO DAILY #30 caps 01/08/22 release hydrocortisone 1 % topical cream 1 applic topical BID #28.4 grams 01/08/22 with perineal applicator lorazepam 1 mg tablet 1 mg PO DAILY@1999 #5 tabs 01/08/22 magnesium chloride 64 mg 128 mg PO BID #120 tabs 01/08/22 (magnesium chloride) tablet,delayed release (Mag 64) magnesium hydroxide 400 mg/5 mL 30 ml PO DAILY PRN PRN 01/08/22 oral suspension (Milk of Magnesia) Constipation #355 mL mirabegron 25 mg tablet,extended 25 mg PO DAILY #30 tabs 01/08/22 release 24 hr (Myrbetriq) mirtazapine 30 mg tablet 30 mg PO QHS #30 tabs 01/08/22 multivitamin,tx-minerals 1 tab PO DAILY #30 tabs 01/08/22 nutritional supplements 1 packet PO TID #90 ea 01/08/22 (Phlexy-Vits) pantoprazole 40 mg tablet,delayed 40 mg PO DAILY #30 tabs 01/08/22 release polyethylene glycol 3350 17 17 g PO DAILY #238 grams 01/08/22 gram/dose oral powder (Miralax) sennosides 8.6 mg capsule (senna) 17.2 mg PO BID #120 caps 01/08/22 sodium phosphates 19 gram-7 133 ml PA .EVERY 3 DAYS PRN PRN 01/08/22 gram/118 mL enema (Enema Constipation #665 mL Disposable) trimethobenzamide 300 mg capsule 300 mg PO QID PRN PRN #30 caps 01/08/22 magnesium chloride 64 mg 128 mg PO BID 02/24/22 (magnesium chloride) tablet,delayed release (Mag-Delay) acetic acid 0.25 % irrigation 50 ml irrigation Q6H PRN bladder 04/01/22 solution stones #6,000 mL Current Visit Medications: Current Medications Generic Name Dose Route Start Last Admin Trade Name Aashishq PRN Reason Stop Dose Admin Ringer's Solution 1,000 mls @ 80 mls/hr 04/28/22 06:00 IV 05/25/22 23:59 INFUSION ALDEN Gentamicin Sulfate 160 mg/ 104 mls @ 208 mls/hr 04/28/22 06:00 Sodium Chloride IVPB 04/28/22 23:59 PREOP ALDEN IV Miscellaneous Supplies 1 each 04/28/22 06:00 Iv Access IV 05/25/22 23:59 DIRECTED ALDEN Sodium Chloride 0 ml 04/28/22 06:00 Normal Saline Flush 10 Ml Syr IV 05/25/22 23:59 PRN PRN Sodium Chloride 0 ml 04/28/22 06:00 Normal Saline 10 Ml Vial IJ 05/25/22 23:59 DIRECTED PRN Sterile Water 0 ml 04/28/22 06:00 Water,Injection,Sterile 10 Ml Vial IJ 05/25/22 23:59 DIRECTED PRN PFSH Active Problems Active Problems: Problem Status Onset Code Bladder stones N21.0 Palliative care patient Z51.5 Bronchospasm J98.01 Neurogenic bowel K59.2 Insomnia G47.00 Weight gain R63.5 Neck pain M54.2 Decubitus skin ulcer L89.90 Insomnia G47.00 Constipation due to neurogenic bowel K59.00, K59.2 DIAMOND (acute kidney injury) N17.9 Chronic recurrent multifocal osteomyelitis M86.30 S/P colostomy Z93.3 Low magnesium level R79.0 Acute osteomyelitis of sacrum M46.28 Major depressive disorder F32.9 Neurogenic bladder N31.9 Quadriplegia G82.50 Hx of caloric malnutrition Z86.39 Medical History Medical History Acute embolism and thrombosis of deep vein of right lower extremity Anxiety disorder Aspiration into airway C. difficile colitis Constipation Decubitus ulcer of buttock, stage 4 Dislocation of C6/C7 cervical vertebrae DNR (do not resuscitate) DVT (deep venous thrombosis) DVT prophylaxis Encounter for wound care Fall down embankment Fusion of spine H/O deep venous thrombosis Hypokalemia Hypotension Ileus Iron deficiency anemia Large bowel obstruction Malnutrition following gastrointestinal surgery Open wound of abdominal wall Physician orders for life-sustaining treatment (POLST) form indicates patient wish for pu-omx-aaudlmwxdme status Right arm pain Visit for wound check Surgical History Surgical History History of infusaport central venous catheter insertion Suprapubic catheter Tobacco Smoking/Tobacco Use Status: Never Alcohol Alcohol Intake: former Substance Use Substance use: Daily Substance use type: marijuana Vital Signs and Lab Results Vital Signs Most Recent Vital Signs in EMR: Most Recent Vital Signs Temp Pulse Resp BP Pulse Ox 36.1 C L 56 L 16 143/118 H 94 04/28/22 08:03 04/28/22 08:03 04/28/22 08:03 04/28/22 08:03 04/28/22 08:03 Lab Results Blood Type / Crossmatch: No Data to Display Complete Blood Count: No Data to Display Complete Metabolic Panel: No Data to Display Liver Function Panel: No Data to Display Coagulation Panel: No Data to Display Cardiac Panel: No Data to Display Arterial Blood Gas: No Data to Display Venous Blood Gas: No Data to Display Pancreas Panel: No Data to Display Thyroid Panel: No Data to Display Infectious Disease: Coronavirus (COVID-19)(PCR) Negative (Negative) 04/25/22 10:20 Blood Cultures: No Data to Display Toxicology Panel: No Data to Display Imaging and Studies Imaging and Studies Study information below may be from another EMR and interpreted by another provider. Please see original notes in EMR for more complete details. EKG Summary: 02/20: sinus rhythm. Echocardiogram Summary: 09/04/21: EF 57%, No hemodynamic valve concerns 03/18/2021 Conclusion Left Ventricle : The left ventricle is normal size. The overall left ventricular systolic function appears normal. There is normal left ventricular wall thickness. Regional wall motion is not well visualized but grossly normal. The left ventricular diastolic function is normal. Right Ventricle : Right ventricle is not well visualized. Right ventricular systolic function could not be assessed. Atria : The left atrium size is normal. The right atrium size is normal. Valves: There are no hemodynamically significant valvular lesions. There is no clear evidence of endocarditis in this technically limited study. Great Vessels : The aortic root is normal in size. The ascending aorta is mildly dilated. IVC is normal in size and collapses >50% with inspiration. Please see remainder of findings for further details. Anesthesia Assessment and Plan Anesthesia History Personal History: No History of Anesthesia Complications and No History of General Anesthesia Family History: No Family History of Anesthesia Complications Exercise Tolerance Exercise Tolerance: Metabolic Equivalents<4 Pertinent Negatives Pertinent Negatives: No Symptoms of GERD, No Major Cardiovascular Symptoms or Complaints, No Major Pulmonary Symptoms or Complaints and No History of CVA/TIA Cardiac & Pulmonary Exam Cardiac Exam: Normal S1/S2 Heart Sounds Pulmonary Exam: Clear Bilateral Breath Sounds Implantable Cardiac Device Does patient have a Pacemaker or an ICD?: No Airway Exam Known Difficult Airway: No Mallampati Class: 2 Mouth Opening: Normal (> 3cm) Thyromental Distance: Greater than 3 cm Neck Range of Motion: Limited ROM Neck Circumference: Normal Teeth Condition: Loose or Chipped (Missing some teeth) Airway Comments: multiple missing teeth. ASA Classification ASA Score: ASA 2 Emergency Case?: No NPO Status NPO Status: NPO Clears >2 hours, Solids >8 hours Anesthesia Plan Resuscitation Status: DNR Fully Suspended During Perioperative Period (Spoke with patient about this) Anesthesia Technique: General Anesthesia Airway Planned: Natural Airway Monitors Used: Standard Monitors
[2022-04-28 08:32] VITALS: BMI 24.1
[2022-04-28] MEDS: Lactated Ringers 1,000 ML 80 ML IV (08:52)
[2022-04-28] MEDS: GENTAMICIN 160 MG in Normal Saline 100 ML 208 MG IVPB (09:05)
--- NOTE | 2022-04-28 09:37 | W.PM.DSUDISC ---
Discharge Plan Disposition Patient Disposition: HOME Condition: Good Discharge Details Reason For Visit: bladder stones Attending Provider: Ady Molina Primary Care Provider: Rayna Pino Home Meds and New Rx's Prescriptions: No Action acetic acid 0.25 % solution 50 ml irrigation Q6H PRN (Reason: bladder stones) Qty: 6000 12RF Rx Instructions: for urinary catheter flush Santyl 250 unit/gram Ointment 0 g topical DAILY Qty: 1 0RF cholecalciferol (vitamin D3) 25 mcg (1,000 unit) Tablet 1,000 units PO DAILY Qty: 30 0RF Phlexy-Vits Powder In Packet 1 packet PO TID Qty: 90 0RF trimethobenzamide 300 mg Capsule 300 mg PO QID PRN PRNQty: 30 0RF Enema Disposable 19-7 gram/118 mL Enema 133 ml [place] .EVERY 3 DAYS PRN PRN (Reason: Constipation) Qty: 665 0RF magnesium hydroxide [Milk of Magnesia] 400 mg/5 mL Suspension 30 ml PO DAILY PRN PRN (Reason: Constipation) Qty: 355 0RF Myrbetriq 25 mg Tablet Extended Release 24 Hr 25 mg PO DAILY Qty: 30 0RF lorazepam 1 mg Tablet 1 mg PO DAILY@1999 MDD 1 mg Qty: 5 0RF hydrocortisone 1 % Cream With Perineal Applicator 1 applic topical BID Qty: 28.4 0RF bisacodyl 10 mg Suppository 10 mg [place] DAILY PRN PRN (Reason: Constipation) Qty: 10 0RF diphenhydramine HCl 25 mg Capsule 50 mg PO 1999 Qty: 60 0RF mirtazapine 30 mg tablet 30 mg PO QHS Qty: 30 0RF acetaminophen [Tylenol] 325 mg tablet 650 mg PO Q6H PRN PRN (Reason: fever or pain) Qty: 30 0RF ascorbic acid (vitamin C) 500 mg Tablet 500 mg PO BID Qty: 60 0RF diazepam 2 mg Tablet 2 mg PO TID Qty: 15 0RF pantoprazole 40 mg Tablet,Delayed Release (Dr/Ec) 40 mg PO DAILY Qty: 30 0RF docusate sodium [Colace] 100 mg capsule 100 mg PO TID Qty: 90 0RF polyethylene glycol 3350 [Miralax] 17 gram/dose powder 17 g PO DAILY Qty: 238 0RF multivitamin,tx-minerals Tablet 1 tab PO DAILY Qty: 30 0RF senna 8.6 mg capsule 17.2 mg PO BID Qty: 120 0RF duloxetine 60 mg capsule,delayed release(DR/EC) 60 mg PO DAILY Qty: 30 0RF Label Comments: TAKE ONE CAPSULE BY MOUTH ONCE DAILY Mag 64 64 mg Tablet,Delayed Release (Dr/Ec) 128 mg PO BID Qty: 120 0RF Lactobacillus acidoph-L.bulgar [Floranex] 1 million cell tablet 1 tab PO TID Qty: 90 0RF albuterol sulfate 90 mcg/actuation aerosol powdr breath activated 2 inh inhalation Q6H PRN PRN (Reason: shortness of breath or wheezing) Qty: 1 0RF Mag-Delay 64 mg tablet,delayed release (DR/EC) 128 mg PO BID Discharge Instructions Additional Instructions: followup 2 to 4 weeks for stone analysis suprapubic tube to gravity Activity:: Activity as Tolerated Diet:: As Tolerated Discharge Orders Discharge Orders: Discharge Order (Routine); Ordered 04/28/22 Ordered By: Ady Molina DS: Diagnosis Discharge Diagnosis (1) Bladder stones: Status: Acute
[2022-04-28 09:40] VITALS: BP 164/101; PULSE 50; RESP 19; TEMP 36.1; O2SAT 98
--- NOTE | 2022-04-28 09:40 | W.PM.OP ---
Date of service: 04/28/22 Time of Service: 09:40 Operative Note Operative Note DATE OF PROCEDURE: 04/28/22 PRE-OP DIAGNOSIS: bladder stones POST-OP DIAGNOSIS: same PROCEDURE: cystoscopy with evacuation of bladder stones SURGEON: Ady Molina ANESTHESIA TYPE: MAC Refer to Anesthesia Record ESTIMATED BLOOD LOSS: 10 PATHOLOGY: other (stones for chemical analysis) COMPLICATIONS: None Patient was transported to: same day Patient's condition: stable Implants: 20 Macedonian catheter with 10 cc sterile water in balloon Indications: This is a 57-year-old gentleman who has a history of a neurogenic bladder related to a spinal injury. He is managed with an indwelling suprapubic tube. The catheter becomes occluded with stone debris every few weeks. On CT scan, there was layering stone debris at the base of the bladder. He presents for stone evacuation Findings: Multiple thin stone fragments Procedure Description: The patient was brought to the operating room on 04/28/2022. He was given preoperative IV antibiotics. He was placed in the supine position. His indwelling suprapubic tube was removed. The suprapubic site was prepped and draped. A 17 Macedonian rigid cystoscope was passed through the suprapubic tract into the bladder. Hand irrigation was performed and multiple stone fragments were extracted. The stone fragments were sent to pathology for chemical analysis. The bladder was then inspected with both a 30 and a 70 degree lens. No additional large stone fragments were identified. The bladder was filled with irrigant and a new 20 Macedonian catheter was passed through the suprapubic tract into the bladder. The catheter balloon was inflated with 10 cc of sterile water. The catheter was hooked to gravity drainage. He tolerated this procedure well
[2022-04-28 10:15] VITALS: BP 143/112; PULSE 52; RESP 19; TEMP 36; O2SAT 97
--- NOTE | 2022-04-28 11:06 | W.ANESPOSTOP ---
Postoperative Evaluation Date, Time and Location Date Performed: 04/28/22 Time Performed: 10:15 Patient Location: Day Surgery Unit Vital Signs Most Recent Imported Vital Signs: Most Recent Vital Signs Temp Pulse Resp BP Pulse Ox 36 C L 52 L 19 143/112 H 97 04/28/22 10:15 04/28/22 10:15 04/28/22 10:15 04/28/22 10:15 04/28/22 10:15 Pain Score Most Recent Pain Score: Most Recent Pain Score Pain Level 0 04/28/22 09:40 Assessment Mental Status: Awake (Alert & Oriented to Patient Baseline) Airway and Respiratory Function: Patent airway with normal (patient baseline) respiratory exam Cardiovascular Function: Hemodynamically Stable Hydration Status: Adequately Hydrated Nausea & Vomiting: No Nausea or Vomiting Pain: Pt. Denies Any Pain Peripheral Nerve Block: Patient did not receive a nerve block
== END 2022-04-28 11:15 | disposition home or self-care (01) ==
PROVIDERS: PCP Nurse Practitioner Family; Visit Provider Urology
PROC: 0TJB8ZZ Inspection of Bladder, Via Natural or Artificial Opening Endoscopic (ICD-10-PCS; CPT 52000; principal; 2022-04-28 08:30)
DX: N21.0 Calculus in bladder (principal); K59.2 Neurogenic bowel, not elsewhere classified; Z93.3 Colostomy status; G82.50 Quadriplegia, unspecified; Z93.51 Cutaneous-vesicostomy status
CPT/HCPCS: 51050; 82365; J1580

== ENCOUNTER 2022-06-26 17:17 | Emergency (ER) | payer MEDICAID, SELFPAY ==
[2022-06-26] VITALS (37 sets, daily range): BP systolic 72–147; BP diastolic 48–91; PULSE 68–94; RESP 16; TEMP 36.1; O2SAT 93–98
[2022-06-26 18:40] LABS: Abs Immature Grans 0.03 10^3/uL (0.0-0.06); Absolute Basophil Count 0.03 10^3/uL (0.0-0.2); Absolute Eosinophil Count 0.04 10^3/uL (0.0-0.7); Absolute Lymphocyte Count 2.61 10^3/uL (1.2-3.4); Absolute Monocyte Count 1.19 10^3/uL (0.1-0.8); Absolute Neutrophil Count 9.23 10^3/uL (1.2-6.7); Basophils % 0.2; Eosinophils % 0.3; HCT 38.6 % (40.0-50.0); HGB 12.9 g/dL (13.5-17.5); Immature Grans % 0.2; Lymphocytes % 19.9; MCH 28.5 pg (27.0-33.0); MCHC 33.4 % (32.0-36.0); MCV 85 fL (80-95); Monocytes % 9.1; Neutrophils % 70.3; Platelet Count 240 10^3/uL (130-400); RBC 4.52 10^6/uL (4.36-5.78); RDW 14.5 % (11.8-14.1); RDW-SD 44.5 fL; WBC 13.13 10^3/uL (4.4-10.8)
[2022-06-26 18:57] LABS: ALT 17 U/L (16-63); AST 13 U/L (15-37); Albumin 3.5 g/dL (3.4-5.0); Alkaline Phosphatase 73 U/L (46-116); Anion Gap 10.9 mmol/L (3-11); BUN 17 mg/dL (7-18); Bilirubin, Total 0.5 mg/dL (0.2-1.0); CO2 25.1 mmol/L (21.0-32.0); Calcium 8.9 mg/dL (8.5-10.1); Chloride 105 mmol/L (98-107); Glucose 101 mg/dL (74-106); Potassium 3.8 mmol/L (3.5-5.1); Sodium 141 mmol/L (136-145); Total Protein 7.3 g/dL (6.4-8.2)
[2022-06-26 20:07] LABS: Bilirubin Negative (Negative); Blood Moderate (Negative); Clarity Turbid (Clear); Glucose Negative (Negative); Ketones Trace mg/dL (Negative); Leukocyte Esterase Small (Negative); Nitrite Positive (Negative); Specific Gravity 1.025 (1.005-1.025); Urobilinogen 0.2 EU/dL (Up TO 0.2); pH 8.5 (5-8)
[2022-06-26 20:26] LABS: RBC >50 HPF (0-2)
[2022-06-26 20:27] LABS: C & S Indicated? Yes
--- NOTE | 2022-06-26 20:45 | DI.CT_ITS ---
Exam(s) CT ABDOMEN PELVIS W EXAM: CT ABDOMEN PELVIS W CLINICAL HISTORY: colostomy present, now making heavy rectal stool. TECHNIQUE: Imaging Protocol: Axial computed tomography images with coronal and sagittal reformatted images were created and reviewed CONTRAST MATERIAL: Intravenous: Omnipaque 100cc Oral: None COMPARISON: CT CT ABDOMEN PELVIS WO from 04/18/2022 FINDINGS: VISUALIZED LUNG BASES: There is persistent pleural based infiltrate in the posterior basal segment of the left lower lobe. No associated pleural effusion. Mild increased markings in the right lung bas e but these have decreased from the prior study listed above.. ABDOMEN: There is no ascites. LIVER: There are no focal hepatic lesions evident . GALLBLADDER/BILIARY: No obvious gallbladder pathology. CBD is not dilated. PANCREAS: No evidence of pancreatic mass nor dilatation of the pancreatic duct. SPLEEN: Spleen is not enlarged. No obvious intrasplenic lesions. Splenic and portal veins are paten t. ADRENALS: There are no significant adrenal masses. KIDNEYS:No cysts evident. No solid renal masses. No calculi nor hydronephrosis.. ABDOMINAL AORTA: Abdominal aorta is not enlarged. LYMPH NODES:There is no retroperitoneal nor paraaortic adenopathy. ABDOMINAL WALL: Left-sided ostomy again noted. GI: There is no evidence of bowel obstruction, free air, nor abscess. Hyperdense fecal material noted in the rectosigmoid but decreased in amount when compared to the prio r study. PELVIS: GI: No evidence of appendicitis.No evidence of diverticulitis.There is presacral and pre coccygeal st randing again noted although somewhat increased from previous. There is no drainable fluid collectio n. LYMPH NODES: There is no intrapelvic nor inguinal adenopathy. REPRODUCTIVE: Prostate not enlarged. Seminal vesicles unremarkable. URINARY BLADDER: Suprapubic catheter in place. Bladder calculi again noted OSSEOUS: Left side decubitus ulcer which is again noted to reach the ischial tuberosity level and the left ischial tuberosity is hyperdense, suspicious for possible developing osteomyelitis. Similar fi nding not seen on the opposite-right side. IMPRESSION: 1. Stable unremarkable appearing left colostomy. No bowel obstruction. Retained fecal material with in the rectosigmoid but less than was previously evident. 2. Increasing presacral-pre coccygeal stranding, without a drainable fluid collection at this level. 3. Suprapubic bladder catheter and urinary bladder calculi evident. Kidneys are unremarkable and the re is no hydronephrosis nor hydroureter. 4. Left side decubitus ulcer which extends down to the bone/case she will tuberosity. The ipsilatera l ischial tuberosity exhibits abnormal increased intraosseous density which may imply developing oste omyelitis at this level. There is no soft tissue abscess at this level. First read by [facility] RADIATION DOSE DELIVERED: 1,181.29mGy.cm Total DLP DATA REPOSITORY: All CT scans at this facility are submitted to the National Radiology Data Registry (NRDR) Dose Index Registry (DIR) with the [employer] (ACR). RADIATION OPTIMIZATION: All CT scans at this facility use at least one of these dose optimization te chniques: automated exposure control; mA and/or kV adjustment per patient size (includes targeted exa ms where dose is matched to clinical indication); or iterative reconstruction.
--- NOTE | 2022-06-26 20:45 | W.ED.GENAD ---
Discharge Plan Disposition Patient Disposition: STILL A PATIENT Discharge Details Primary Care Provider: Rayna Pino ED Provider: Atul Ross Home Meds and New Rx's Prescriptions: No Action methenamine hippurate 1 gram tablet 1 g PO TID Qty: 90 6RF ascorbic acid (vitamin C) 500 mg tablet 500 mg PO QID Qty: 120 0RF cholecalciferol (vitamin D3) 25 mcg (1,000 unit) Tablet 1,000 units PO DAILY Qty: 30 0RF Phlexy-Vits Powder In Packet 1 packet PO TID Qty: 90 0RF trimethobenzamide 300 mg Capsule 300 mg PO QID PRN PRNQty: 30 0RF Myrbetriq 25 mg Tablet Extended Release 24 Hr 25 mg PO DAILY Qty: 30 0RF lorazepam 1 mg Tablet 1 mg PO DAILY@1999 MDD 1 mg Qty: 5 0RF bisacodyl 10 mg Suppository 10 mg [place] DAILY PRN PRN (Reason: Constipation) Qty: 10 0RF diphenhydramine HCl 25 mg Capsule 50 mg PO 1999 Qty: 60 0RF acetaminophen [Tylenol] 325 mg tablet 650 mg PO Q6H PRN PRN (Reason: fever or pain) Qty: 30 0RF diazepam 2 mg Tablet 2 mg PO TID Qty: 15 0RF docusate sodium [Colace] 100 mg capsule 100 mg PO TID Qty: 90 0RF multivitamin,tx-minerals Tablet 1 tab PO DAILY Qty: 30 0RF senna 8.6 mg capsule 17.2 mg PO BID Qty: 120 0RF Lactobacillus acidoph-L.bulgar [Floranex] 1 million cell tablet 1 tab PO TID Qty: 90 0RF Mag-Delay 64 mg tablet,delayed release (DR/EC) 128 mg PO BID Medical Decision Making 57-year-old male history of quadriplegia, status post colostomy, now with brown stool per rectum. Initially spoke with Dr. Gaspar who notes patient can have stool that remains in distal segment of bowel and can produce stool from rectum even a year out. Labs reviewed: Mild leukocytosis noted. Normal creatinine. Urinalysis reviewed and while he is positive nitrite he has no WBCs. Will send urine culture. I want to review results and discharge plan with the patient and he noted continued rectal output. I examined his rectum and he does not fact have flowing brown diarrhea from his rectum. I spoke again with Dr. Arvizu who recommends CT of the abdomen pelvis with p.o. contrast as well as check for C. difficile. Care to be signed out to Dr. Smyth with plan to follow-up on pending studies and reassess patient for disposition. HPI General Mode of arrival: ambulatory. Date/Time Provider Initiated Documentation: 06/26/22 17:52. Limitations to Documentation: no limitations. Information obtained by: patient. HPI Narrative: 57-year-old male with history of quadriplegia, neurogenic bladder, status post suprapubic bladder catheter, status post colostomy with complicated postoperative course requiring revision about 1 year ago, here with chief complaint of now having rectal stool. Symptoms started today and have persisted. He notes he has not had stool per rectum since surgery. Symptoms severe. No modifiers. He also notes dark-colored urine. Related Data Home Medications Medication Instructions Recorded Confirmed Lactobacillus acidoph-L.bulgaricus 1 tab PO TID #90 tabs 01/08/22 06/26/22 1 million cell tablet (Floranex) acetaminophen 325 mg tablet 650 mg PO Q6H PRN PRN fever or 01/08/22 06/26/22 (Tylenol) pain #30 tabs bisacodyl 10 mg rectal suppository 10 mg [place] DAILY PRN PRN 01/08/22 06/26/22 Constipation #10 ea cholecalciferol (vitamin D3) 25 1,000 units PO DAILY #30 tabs 01/08/22 06/26/22 mcg (1,000 unit) tablet diazepam 2 mg tablet 2 mg PO TID #15 tabs 01/08/22 06/26/22 diphenhydramine HCl 25 mg capsule 50 mg PO 1999 #60 caps 01/08/22 06/26/22 docusate sodium 100 mg capsule 100 mg PO TID #90 caps 01/08/22 06/26/22 (Colace) lorazepam 1 mg tablet 1 mg PO DAILY@1999 #5 tabs 01/08/22 06/26/22 mirabegron 25 mg tablet,extended 25 mg PO DAILY #30 tabs 01/08/22 06/26/22 release 24 hr (Myrbetriq) multivitamin,tx-minerals 1 tab PO DAILY #30 tabs 01/08/22 06/26/22 nutritional supplements 1 packet PO TID #90 ea 01/08/22 06/26/22 (Phlexy-Vits) sennosides 8.6 mg capsule (senna) 17.2 mg PO BID #120 caps 01/08/22 06/26/22 trimethobenzamide 300 mg capsule 300 mg PO QID PRN PRN #30 caps 01/08/22 06/26/22 magnesium chloride 64 mg 128 mg PO BID 02/24/22 06/26/22 (magnesium chloride) tablet,delayed release (Mag-Delay) methenamine hippurate 1 gram tablet 1 g PO TID recurrent UTI #90 tabs 05/16/22 05/16/22 ascorbic acid (vitamin C) 500 mg 500 mg PO QID #120 tabs 06/11/22 06/26/22 tablet Previous Rx's Medication Instructions Recorded Lactobacillus acidoph-L.bulgaricus 1 tab PO TID #90 tabs 01/08/22 1 million cell tablet (Floranex) acetaminophen 325 mg tablet 650 mg PO Q6H PRN PRN fever or 01/08/22 (Tylenol) pain #30 tabs bisacodyl 10 mg rectal suppository 10 mg [place] DAILY PRN PRN 01/08/22 Constipation #10 ea cholecalciferol (vitamin D3) 25 1,000 units PO DAILY #30 tabs 01/08/22 mcg (1,000 unit) tablet diazepam 2 mg tablet 2 mg PO TID #15 tabs 01/08/22 diphenhydramine HCl 25 mg capsule 50 mg PO 1999 #60 caps 01/08/22 docusate sodium 100 mg capsule 100 mg PO TID #90 caps 01/08/22 (Colace) lorazepam 1 mg tablet 1 mg PO DAILY@1999 #5 tabs 01/08/22 mirabegron 25 mg tablet,extended 25 mg PO DAILY #30 tabs 01/08/22 release 24 hr (Myrbetriq) multivitamin,tx-minerals 1 tab PO DAILY #30 tabs 01/08/22 nutritional supplements 1 packet PO TID #90 ea 01/08/22 (Phlexy-Vits) sennosides 8.6 mg capsule (senna) 17.2 mg PO BID #120 caps 01/08/22 trimethobenzamide 300 mg capsule 300 mg PO QID PRN PRN #30 caps 01/08/22 methenamine hippurate 1 gram tablet 1 g PO TID recurrent UTI #90 tabs 05/16/22 ascorbic acid (vitamin C) 500 mg 500 mg PO QID #120 tabs 06/11/22 tablet Allergies Allergy/AdvReac Type Severity Reaction Status Date / Time No Known Allergies Allergy Verified 06/26/22 17:32 General Stated Complaint: GenMedical LU: 3 Review of Systems All systems reviewed & are unremarkable except as noted in HPI and below Constitutional Constitutional: Denies fever(s) Gastrointestinal Gastrointestinal: Reports as per HPI PFSH All Active Problems Bladder stones (Acute) Palliative care patient (Acute) Bronchospasm (Acute) Neurogenic bowel (Chronic) Insomnia (Acute) Weight gain (Acute) Neck pain (Acute) Decubitus skin ulcer (Acute) Insomnia (Acute) Constipation due to neurogenic bowel (Acute) Chronic recurrent multifocal osteomyelitis (Chronic) S/P colostomy (Chronic) Acute osteomyelitis of sacrum (Chronic) Major depressive disorder (Chronic) Neurogenic bladder (Chronic) Quadriplegia (Chronic) Medical History Acute embolism and thrombosis of deep vein of right lower extremity Anxiety disorder Aspiration into airway C. difficile colitis Constipation Decubitus ulcer of buttock, stage 4 Dislocation of C6/C7 cervical vertebrae DNR (do not resuscitate) DVT (deep venous thrombosis) DVT prophylaxis Encounter for wound care Fall down embankment Fusion of spine H/O deep venous thrombosis Hypokalemia Hypotension Ileus Iron deficiency anemia Large bowel obstruction Malnutrition following gastrointestinal surgery Open wound of abdominal wall Physician orders for life-sustaining treatment (POLST) form indicates patient wish for [id number] status Right arm pain Visit for wound check Surgical History History of infusaport central venous catheter insertion Suprapubic catheter Social History Smoking/Tobacco Use Status: Never Smoking risk assessment performed?: Yes Alcohol Intake: current Alcohol Intake frequency: holidays/special occasions only Drug use: Daily Substance use type: marijuana Do you feel safe at home: Yes Do you feel safe in your relationship?: Yes Additional Social history: unable to assess privately Exam Const General: cooperative and no acute distress [facility] Mouth: moist mucous membranes Eyes Conjunctivae: normal conjunctivae Sclera: normal sclerae Neck Neck: trachea midline Resp Auscultation: clear to auscultation bilaterally, no rales, no rhonchi and no wheezes Cardio Rate: regular rate and not tachycardic Rhythm: regular rhythm GI Palpation: soft, not firm, no guarding, no masses, not rigid and other (Colostomy present with some output in bag) Rectal Exam: other (Patient with heavy brown stool from rectum, sacradecubitus ulcer is present) Skin General skin exam: no rashes or lesions noted Neuro General: patient alert, patient awake and tone normal Extrem General: no edema Psych Appearance: grossly normal Mental Status: mental status grossly normal Course Vital Signs Vital signs: Vital Signs Temperature 36.1 C L 06/26/22 17:28 Pulse 91 H 06/26/22 17:28 Respiratory Rate 16 06/26/22 17:28 Blood Pressure 107/74 06/26/22 17:28 Pulse Oximetry 94 06/26/22 17:28 Temperature 36.1 C L 06/26/22 17:28 Temperature Source Temporal Artery Scan 06/26/22 17:28 Pulse 91 H 06/26/22 17:28 Respiratory Rate 16 06/26/22 17:28 Respiratory Effort Non-Labored 06/26/22 17:37 Respiratory Depth Normal 06/26/22 17:37 Respiratory Pattern Normal 06/26/22 17:37 Blood Pressure 107/74 06/26/22 17:28 Blood Pressure Position Supine 06/26/22 17:28 Pulse Oximetry 94 06/26/22 17:28 Oxygen Delivery Method Room Air 06/26/22 17:28 Oxygen Flow Rate 0 06/26/22 17:28 Lab/Test Results Lab/Test Results: 06/26/22 19:46 Urine - Reflex from Ua Urine Culture - Pending Laboratory Tests Range/Units 06/26/22 06/26/22 06/26/22 18:33 18:33 19:46 WBC (4.4-10.8) 10^3/uL 13.13 H RBC (4.36-5.78) 10^6/uL 4.52 Hgb (13.5-17.5) g/dL 12.9 L Hct (40.0-50.0) % 38.6 L MCV (80-95) fL 85 MCH (27.0-33.0) pg 28.5 MCHC (32.0-36.0) % 33.4 RDW (11.8-14.1) % 14.5 H Plt Count (130-400) 10^3/uL 240 MPV (8.0-11.0) fL 11.0 Immature Gran % 0.2 Neutrophils % 70.3 Lymphocytes % 19.9 Monocytes % 9.1 Eosinophils % 0.3 Basophils % 0.2 Nucleated RBC % (0.0-0.3) % 0.0 Absolute Neutrophils (1.2-6.7) 10^3/uL 9.23 H Absolute Lymphocytes (1.2-3.4) 10^3/uL 2.61 Absolute Monocytes (0.1-0.8) 10^3/uL 1.19 H Absolute Eosinophils (0.0-0.7) 10^3/uL 0.04 Absolute Basophils (0.0-0.2) 10^3/uL 0.03 Sodium (136-145) mmol/L 141 Potassium (3.5-5.1) mmol/L 3.8 Chloride (98-107) mmol/L 105 Carbon Dioxide (21.0-32.0) mmol/L 25.1 Anion Gap (3-11) mmol/L 10.9 BUN (7-18) mg/dL 17 Creatinine (0.70-1.30) mg/dL 1.0 Estimated GFR/1.73 m2 (mL/min/1.73m2) >= 60.00 Glucose (74-106) mg/dL 101 Calcium (8.5-10.1) mg/dL 8.9 Total Bilirubin (0.2-1.0) mg/dL 0.5 AST (15-37) U/L 13 L ALT (16-63) U/L 17 Alkaline Phosphatase (46-116) U/L 73 Total Protein (6.4-8.2) g/dL 7.3 Albumin (3.4-5.0) g/dL 3.5 Urine Color (Yellow) Red Urine Clarity (Clear) Turbid Urine pH (5-8) 8.5 H Ur Specific [place] (1.005-1.025) 1.025 Urine Protein (Negative) mg/dL >=300 H Urine Ketones (Negative) mg/dL Trace H Urine Blood (Negative) Moderate H Urine Nitrite (Negative) Positive H Urine Bilirubin (Negative) Negative Urine Urobilinogen (Up TO 0.2) EU/dL 0.2 Ur Leukocyte Esterase (Negative) Small H Urine RBC (0-2) HPF >50 H Urine WBC (0-5) HPF Ur Epithelial Cells Not Applicable Urine Crystals Not Applicable Urine Bacteria Not Applicable Urine Mucus Not Applicable Ur Culture Indicated? Yes Urine Glucose (Negative) mg/dL Negative PAWSS Have you Been Recently Intoxicated or Drunk Within the Last 30 days?: No Have you Ever Experienced Previous Episodes of Alcohol Withdrawal?: No Have you ever Experienced Withdrawal Seizures?: No Have you ever Experienced Delirium Tremens(DT)s?: No Have you ever undergone Alcohol Rehabilitation Treatment (i.e, inpt ot outpatient treatment programs)?: No Have you ever Experienced Blackouts?: No Have you ever Combined Alcohol with other Downers within the last 90 days?: No Have you ever Combined Alcohol with any other Substance of Abuse during the last 90 days?: No Positive Blood Alcohol level on Presentation? [PCS.BAL]: No Evidence of Increased Autonomic Activity (i.e. HR>120, tremor, sweating, agitation, nausea)?: No Result: 0
[2022-06-26] MEDS: Omnipaque 350 MG/ML 100 ML BTL IJ (22:52)
[2022-06-26] MEDS: Normal Saline 1,000 ML 1000 ML IV (23:06)
[2022-06-26 23:16] LABS: C Diff PCR Negative (Negative)
--- NOTE | 2022-06-26 23:39 | DI.VRAD_ITS ---
PROCEDURE INFORMATION: Exam: CT Abdomen And Pelvis With Contrast Exam date and time: 06/26/2022 10:38 PM Age: 57 years old Clinical indication: Other: Colostomy present, now making heavy rectal stool; Prior surgery; Surgery date: 6+ months TECHNIQUE: Imaging protocol: Computed tomography of the abdomen and pelvis with contrast. Contrast material: OMNI 350; Contrast volume: 100 ml; Contrast route: INTRAVENOUS (IV); COMPARISON: CT ABDOMEN PELVIS WO 04/18/2022 10:18 AM FINDINGS: Tubes, catheters and devices: Urinary bladder contains a suprapubic catheter. The urinary bladder contains calcifications inferiorly. There is nonspecific bladder wall thickening which may be related to under distention. Lungs: Left lung base posterior subsegmental airspace consolidation which may represent a minor infiltrate. There is mild bronchial wall thickening leading up to this region. Pleural spaces: No pleural effusion. Heart: Normal heart size. No pericardial effusion. No coronary artery atherosclerotic calcium evident. Liver: Mild diffuse fatty liver change. Gallbladder and bile ducts: The gallbladder is normal in size and shape. No stones or inflammatory changes. Pancreas: The pancreas is normal in contour and attenuation. Spleen: The spleen is normal in size, contour and attenuation. Adrenal glands: The adrenal glands are normal in size and contour bilaterally. Kidneys and ureters: The kidneys bilaterally are unremarkable. Normal attenutation. No hydronephrosis. No calculi. Stomach and bowel: Gastric morphology is unremarkable. No edema. No gastric outlet obstruction. Small bowel loops are unremarkable. No dilatation. No edema. No obstructive change. Patient has had a left lower abdomen diverting colostomy at the level of the distal left colon. There is a prominent amount of formed fecal material within the rectosigmoid region. This is hyperdense in appearance suggesting that this is chronic fecal material. On a previous study from 04/18/22, this fecal material was in the more proximal sigmoid colon and appears to have passed distally. This is most prominent in the rectal region at this time. This is likely a delayed passage of pre-existing sigmoid colon retained fecal material. There is mild pre sacral fatty stranding and inflammatory type change. This is also noted 04/18/2022. This may have increased slightly. The rectum appears mildly thick walled at this time measuring 8 mm. Cannot exclude a mild stercoral proctitis type process. Appendix: No evidence of appendicitis. Intraperitoneal space: Unremarkable. No free air. No significant fluid collection. Vasculature: Unremarkable. No abdominal aortic aneurysm. Lymph nodes: Unremarkable. No enlarged lymph nodes. Urinary bladder: Suprapubic catheter enters urinary bladder. Urinary bladder is collapsed. Appearance suggesting urinary bladder calculi. Reproductive: Unremarkable as visualized. Bones/joints: Degenerative lumbar spine disease. Degenerative right hip changes. Soft tissues: Unremarkable. IMPRESSION: 1. No bowel obstruction. 2. Left lower abdominal wall colostomy is unremarkable. 3. There is prominent retained fecal material within the rectosigmoid region. This is noted on previous CT 04/18/2022. This appears to have passed distally from the sigmoid colon into the rectum and is likely spontaneously passing transrectally at this time. No evidence of breakdown of bowel anastomosis or formation of a fistula. Mild rectal wall thickening. Cannot exclude a component of stercoral proctitis. 4. No free fluid or free air. 5. Mild diffuse fatty liver change. 6. Posterior left lower lobe subsegmental consolidation suggesting infiltrate. 7. Suprapubic urinary bladder catheter. Urinary bladder calculi suggested. Dictated and Authenticated by: Lawrence Black MD. Ordering:LEONORA Pollard MD
[2022-06-26 23:40] LABS: Lactate 0.5 mmol/L (0.6-1.4)
--- NOTE | 2022-06-26 23:45 | W.EDPROG ---
Date of service: 06/27/22 Time of Service: 06:[address] shows no fistula, does show retained fecal material that is now transversing and was seen on previous ct. They do note possible infiltrate but he denies any cough or other infectious symptoms so suspect atelecatasis. c diff negative. he is stable, discussed results with him and given no significant finidngs on workup feel he is stable for d/c and can follow up as needed with pcp and general surgery. He has no ride with his wheel chair now, will remain in the ED until ride can be arranged. Ua likely is due to olonization and not acute infection pt slept overnight and is easily awoken without complaints, remains stable and appropriate for d/c at this time, his palliative care nurse Cary will be here and will need assistance to get him in the wheelchair van in terms of lifting which is his baseline, uses a christa lift at home. Imaging Data Radiologic Study: Attestation: I personally reviewed and interpreted this imaging study as follows: Imaging: CT Scan Radiologist's impression: IMPRESSION: 1. No bowel obstruction. 2. Left lower abdominal wall colostomy is unremarkable. 3. There is prominent retained fecal material within the rectosigmoid region. This is noted on previous CT 04/18/2022. This appears to have passed distally from the sigmoid colon into the rectum and is likely spontaneously passing transrectally at this time. No evidence of breakdown of bowel anastomosis or formation of a fistula. Mild rectal wall thickening. Cannot exclude a component of stercoral proctitis. 4. No free fluid or free air. 5. Mild diffuse fatty liver change. 6. Posterior left lower lobe subsegmental consolidation suggesting infiltrate. 7. Suprapubic urinary bladder catheter. Urinary bladder calculi suggested. Sign Out Sign Out Data: Sign Out Comment: Follow-up CT of the abdomen pelvis as well as C. difficile and reassess patient for disposition. Last updated by Atul Ross MD at 06/26/22 21:11 Discharge Plan Disposition Patient Disposition: HOME Condition: Stable Discharge Details Clinical Impression: S/P colostomy, Abnormal feces Primary Care Provider: Rayna Pino ED Provider: [facility] Home Meds and New Rx's Prescriptions: Continued methenamine hippurate 1 gram tablet 1 g PO TID Qty: 90 6RF ascorbic acid (vitamin C) 500 mg tablet 500 mg PO QID Qty: 120 0RF cholecalciferol (vitamin D3) 25 mcg (1,000 unit) Tablet 1,000 units PO DAILY Qty: 30 0RF Phlexy-Vits Powder In Packet 1 packet PO TID Qty: 90 0RF trimethobenzamide 300 mg Capsule 300 mg PO QID PRN PRNQty: 30 0RF Myrbetriq 25 mg Tablet Extended Release 24 Hr 25 mg PO DAILY Qty: 30 0RF lorazepam 1 mg Tablet 1 mg PO DAILY@1999 MDD 1 mg Qty: 5 0RF bisacodyl 10 mg Suppository 10 mg [place] DAILY PRN PRN (Reason: Constipation) Qty: 10 0RF diphenhydramine HCl 25 mg Capsule 50 mg PO 1999 Qty: 60 0RF acetaminophen [Tylenol] 325 mg tablet 650 mg PO Q6H PRN PRN (Reason: fever or pain) Qty: 30 0RF diazepam 2 mg Tablet 2 mg PO TID Qty: 15 0RF docusate sodium [Colace] 100 mg capsule 100 mg PO TID Qty: 90 0RF multivitamin,tx-minerals Tablet 1 tab PO DAILY Qty: 30 0RF senna 8.6 mg capsule 17.2 mg PO BID Qty: 120 0RF Lactobacillus acidoph-L.bulgar [Floranex] 1 million cell tablet 1 tab PO TID Qty: 90 0RF Mag-Delay 64 mg tablet,delayed release (DR/EC) 128 mg PO BID Discharge Instructions Additional Instructions: you had stool in your colon that finally came out of the rectum folllw up with your primary care provider and surgeon as needed if you feel more ill, have severe worsening pain or fevers return to the emergency department
[2022-06-27] VITALS (67 sets, daily range): BP systolic 65–161; BP diastolic 31–94; PULSE 64–99; O2SAT 88–99
[2022-06-27] MEDS: diazePAM 2 MG TAB PO (01:46)
--- NOTE | 2022-06-27 06:21 | NUR.NOTE ---
Nursing Note: [employer] Operator, Cary Ahumada, called around this time to come get patient. She reports she will be to [facility] around 07:20. Phone number to contact is [phone].
--- NOTE | 2022-06-27 08:21 | NUR.NOTE ---
Pt. moved to electric wheelchair via christa lift. Caregiver advised that they currently do not have a clean christa pad at home. Contacted [facility] (Mds Rn) which advised that they could take our pad as long as they returned it today. Caregiver was fine with this arrangement.Nursing Note:
== END 2022-06-27 08:21 | disposition home or self-care (01) ==
PROVIDERS: Student in an Organized Health Care Education/Training Program; Emergency Provider Emergency Medicine; PCP Nurse Practitioner Family
DX: R19.5 Other fecal abnormalities (principal); D72.829 Elevated white blood cell count, unspecified; Z93.3 Colostomy status; Z86.718 Personal history of other venous thrombosis and embolism
CPT/HCPCS: 36415; 80053; 87077; 87493; 96360; 96361; 99285; 74177; 81003; 81015; 83605; 85025; 87086; 87186; 99284; J3490

== ENCOUNTER 2022-07-30 22:20 | Outpatient (REF) | payer MEDICAID, SELFPAY ==
[2022-07-30 22:34] LABS: Abs Immature Grans 0.02 10^3/uL (0.0-0.06); Absolute Basophil Count 0.04 10^3/uL (0.0-0.2); Absolute Eosinophil Count 0.27 10^3/uL (0.0-0.7); Absolute Lymphocyte Count 1.92 10^3/uL (1.2-3.4); Absolute Monocyte Count 0.64 10^3/uL (0.1-0.8); Absolute Neutrophil Count 6.61 10^3/uL (1.2-6.7); Basophils % 0.4; Eosinophils % 2.8; HCT 43.7 % (40.0-50.0); HGB 13.9 g/dL (13.5-17.5); Immature Grans % 0.2; Lymphocytes % 20.2; MCH 28.5 pg (27.0-33.0); MCHC 31.8 % (32.0-36.0); MCV 90 fL (80-95); MPV 11.6 fL (8.0-11.0); Monocytes % 6.7; Neutrophils % 69.7; Platelet Count 262 10^3/uL (130-400); RBC 4.88 10^6/uL (4.36-5.78); RDW 13.7 % (11.8-14.1); RDW-SD 45.2 fL
[2022-07-30 22:40] LABS: Albumin 4.1 g/dL (3.4-5.0)
[2022-07-30 22:41] LABS: ESR 34 mm/hr (0-20)
[2022-08-01 10:22] LABS: Prealbumin 26 mg/dL (20-40)
== END 2022-07-30 22:21 | disposition home or self-care (01) ==
LOC: NCHCN 22:20
PROVIDERS: PCP Nurse Practitioner Family; Visit Provider Nurse Practitioner Family
DX: L89.324 Pressure ulcer of left buttock, stage 4 (principal)
CPT/HCPCS: 85652; 82040; 84134; 85025; 86140

== ENCOUNTER 2022-08-01 11:36 | Emergency (ER) | payer MEDICAID, SELFPAY ==
[2022-08-01 12:00] VITALS: BP 208/77; PULSE 47; RESP 16; TEMP 37.2; O2SAT 94
--- NOTE | 2022-08-01 12:17 | ED.GENADUL_ITS ---
Discharge Plan Disposition Patient Disposition: HOME Condition: Improving Discharge Details Clinical Impression: Suprapubic catheter dysfunction Primary Care Provider: Rayna Pino ED Provider: Boo Mosquera Home Meds and New Rx's Prescriptions: Continued methenamine hippurate 1 gram tablet 1 g PO TID Qty: 90 6RF ascorbic acid (vitamin C) 500 mg tablet 500 mg PO QID Qty: 120 0RF cholecalciferol (vitamin D3) 25 mcg (1,000 unit) Tablet 1,000 units PO DAILY Qty: 30 0RF Phlexy-Vits Powder In Packet 1 packet PO TID Qty: 90 0RF trimethobenzamide 300 mg Capsule 300 mg PO QID PRN PRNQty: 30 0RF Myrbetriq 25 mg Tablet Extended Release 24 Hr 25 mg PO DAILY Qty: 30 0RF lorazepam 1 mg Tablet 1 mg PO DAILY@1999 MDD 1 mg Qty: 5 0RF bisacodyl 10 mg Suppository 10 mg [place] DAILY PRN PRN (Reason: Constipation) Qty: 10 0RF diphenhydramine HCl 25 mg Capsule 50 mg PO 1999 Qty: 60 0RF acetaminophen [Tylenol] 325 mg tablet 650 mg PO Q6H PRN PRN (Reason: fever or pain) Qty: 30 0RF diazepam 2 mg Tablet 2 mg PO TID Qty: 15 0RF docusate sodium [Colace] 100 mg capsule 100 mg PO TID Qty: 90 0RF multivitamin,tx-minerals Tablet 1 tab PO DAILY Qty: 30 0RF senna 8.6 mg capsule 17.2 mg PO BID Qty: 120 0RF Lactobacillus acidoph-L.bulgar [Floranex] 1 million cell tablet 1 tab PO TID Qty: 90 0RF Mag-Delay 64 mg tablet,delayed release (DR/EC) 128 mg PO BID Discharge Instructions Additional Instructions: Laboratory values are unremarkable for obvious emergent process. Your suprapubic catheter is now draining appropriately. Please watch for new or worsening symptoms and return to the ER for any concerns. Lastly, please contact your urology team for your ongoing suprapubic catheter dysfunction first thing next week. Medical Decision Making 57-year-old gentleman presents for difficulty draining his suprapubic catheter. Upon arrival it is draining appropriately and he is asymptomatic. He does pr esent with bradycardia and hypertension but when rechecked his vital signs are unremarkable. Patient does state that when his bladder gets full like this sometimes he does have these types of reactions. Denies recent fever. Clinically he appears well, nontoxic. Plan is to obtain IV access, give IV fluid and obtain routine screening laboratory values to assess hydration status, leukocytosis, etc. We will also obtain urinalysis. Bladder scan obtained and shows no evidence of retention Patient remains normotensive. No evidence of toxicity. Work-up reveals no evidence of leukocytosis or anemia. Potassium 4.0 sodium 142 creatinine 0.9 with a GFR of 100.86. Urine reveals large blood, moderate leuk esterase 20-50 red cells, 10-20 white cells, few epithelial cells, few bacteria, culture indicated. Urine does not appear significantly different when compared to previous sample, this is likely colonization from his suprapubic catheter. Again no fever or leukocytosis, will not initiate antibiotic therapy. Patient is asymptomatic and remains normotensive. Patient is comfortable discharge in his current condition Standard discharge and return precautions were provided. Patient understands, is agreeable to this plan, and has no additional questions or concerns upon discharge. This documentation was generated using [employer] system, please disregard any oddities of phrase or misspellings. Medical Records Medical records reviewed: Yes I reviewed the patient's medical records. Lab Data Lab results reviewed: Yes I reviewed the patient's lab results. Labs: 08/01/22 12:40 Urine - Reflex from Ua Urine Culture - Pending Laboratory Tests Range/Units 08/01/22 08/01/22 08/01/22 12:40 13:59 13:59 WBC (4.4-10.8) 10^3/uL 8.03 RBC (4.36-5.78) 10^6/uL 4.69 Hgb (13.5-17.5) g/dL 13.6 Hct (40.0-50.0) % 41.2 MCV (80-95) fL 88 MCH (27.0-33.0) pg 29.0 MCHC (32.0-36.0) % 33.0 RDW (11.8-14.1) % 13.9 Plt Count (130-400) 10^3/uL 231 MPV (8.0-11.0) fL 11.0 Immature Gran % 0.4 Neutrophils % 66.8 Lymphocytes % 21.4 Monocytes % 6.2 Eosinophils % 4.6 Basophils % 0.6 Nucleated RBC % (0.0-0.3) % 0.0 Absolute Neutrophils (1.2-6.7) 10^3/uL 5.36 Absolute Lymphocytes (1.2-3.4) 10^3/uL 1.72 Absolute Monocytes (0.1-0.8) 10^3/uL 0.50 Absolute Eosinophils (0.0-0.7) 10^3/uL 0.37 Absolute Basophils (0.0-0.2) 10^3/uL 0.05 Sodium (136-145) mmol/L 142 Potassium (3.5-5.1) mmol/L 4.0 Chloride (98-107) mmol/L 109 H Carbon Dioxide (21.0-32.0) mmol/L 22.4 Anion Gap (3-11) mmol/L 10.6 BUN (7-18) mg/dL 21 H Creatinine (0.70-1.30) mg/dL 0.9 Est GFR (CKD-EPI 2020) (mL/min/1.73m2) 100.86 Glucose (74-106) mg/dL 96 Calcium (8.5-10.1) mg/dL 9.4 Total Bilirubin (0.2-1.0) mg/dL 0.3 AST (15-37) U/L 14 L ALT (16-63) U/L 15 L Alkaline Phosphatase (46-116) U/L 85 Total Protein (6.4-8.2) g/dL 7.3 Albumin (3.4-5.0) g/dL 3.7 Urine Color (Yellow) Yellow Urine Clarity (Clear) Clear Urine pH (5-8) 6.0 Ur Specific [place] (1.005-1.025) 1.015 Urine Protein (Negative) mg/dL 100 H Urine Ketones (Negative) mg/dL Negative Urine Blood (Negative) Large H Urine Nitrite (Negative) Negative Urine Bilirubin (Negative) Negative Urine Urobilinogen (Up TO 0.2) EU/dL 0.2 Ur Leukocyte Esterase (Negative) Moderate H Urine RBC (0-2) HPF 20-50 H Urine WBC (0-5) HPF 10-20 H Ur Epithelial Cells (Negative) HPF Few Urine Crystals (Negative) HPF Negative Urine Bacteria (Negative) HPF Few Urine Casts (Negative) LPF 0-2 Hyaline Urine Mucus (Negative) Negative Ur Culture Indicated? Yes Urine Glucose (Negative) mg/dL Negative HPI General Mode of arrival: EMS . Date/Time Provider Initiated Documentation: 08/01/22 12:05 . Limitations to Documentation: no limitations . Information obtained by: patient and EMS . HPI Narrative: This is a 57-year-old gentleman with past medical history of cervical fracture, quadriplegia, neurogenic bladder, indwelling suprapubic catheter, presenting to the ER reporting his catheter has not been draining well over the past 24 hours. It was changed on Thursday, it is typically changed every 5 to 7 days. Patient states that when his catheter is not draining well typically he does not feel well and gets hot and sweaty. EMS called and by the time he got here he reports that his catheter is now draining appropriately and he is asymptomatic. Denies recent fever, vomiting, foul smell to his urine. He did think his urine looked a little dark this morning but is now appropriate color. Related Data Home Medications Medication Instructions Recorded Confirmed Lactobacillus acidoph-L.bulgaricus 1 tab PO TID #90 tabs 01/08/22 06/26/22 1 million cell tablet (Floranex) acetaminophen 325 mg tablet 650 mg PO Q6H PRN PRN fever or 01/08/22 06/26/22 (Tylenol) pain #30 tabs bisacodyl 10 mg rectal suppository 10 mg [place] DAILY PRN PRN 01/08/22 06/26/22 Constipation #10 ea cholecalciferol (vitamin D3) 25 1,000 units PO DAILY #30 tabs 01/08/22 06/26/22 mcg (1,000 unit) tablet diazepam 2 mg tablet 2 mg PO TID #15 tabs 01/08/22 06/26/22 diphenhydramine HCl 25 mg capsule 50 mg PO 1999 #60 caps 01/08/22 06/26/22 docusate sodium 100 mg capsule 100 mg PO TID #90 caps 01/08/22 06/26/22 (Colace) lorazepam 1 mg tablet 1 mg PO DAILY@1999 #5 tabs 01/08/22 06/26/22 mirabegron 25 mg tablet,extended 25 mg PO DAILY #30 tabs 01/08/22 06/26/22 release 24 hr (Myrbetriq) multivitamin,tx-minerals 1 tab PO DAILY #30 tabs 01/08/22 06/26/22 nutritional supplements 1 packet PO TID #90 ea 01/08/22 06/26/22 (Phlexy-Vits) sennosides 8.6 mg capsule (senna) 17.2 mg PO BID #120 caps 01/08/22 06/26/22 trimethobenzamide 300 mg capsule 300 mg PO QID PRN PRN #30 caps 01/08/22 06/26/22 magnesium chloride 64 mg 128 mg PO BID 02/24/22 06/26/22 (magnesium chloride) tablet,delayed release (Mag-Delay) methenamine hippurate 1 gram tablet 1 g PO TID recurrent UTI #90 tabs 05/16/22 05/16/22 ascorbic acid (vitamin C) 500 mg 500 mg PO QID #120 tabs 07/08/22 tablet Previous Rx's Medication Instructions Recorded Lactobacillus acidoph-L.bulgaricus 1 tab PO TID #90 tabs 01/08/22 1 million cell tablet (Floranex) acetaminophen 325 mg tablet 650 mg PO Q6H PRN PRN fever or 01/08/22 (Tylenol) pain #30 tabs bisacodyl 10 mg rectal suppository 10 mg [place] DAILY PRN PRN 01/08/22 Constipation #10 ea cholecalciferol (vitamin D3) 25 1,000 units PO DAILY #30 tabs 01/08/22 mcg (1,000 unit) tablet diazepam 2 mg tablet 2 mg PO TID #15 tabs 01/08/22 diphenhydramine HCl 25 mg capsule 50 mg PO 1999 #60 caps 01/08/22 docusate sodium 100 mg capsule 100 mg PO TID #90 caps 01/08/22 (Colace) lorazepam 1 mg tablet 1 mg PO DAILY@1999 #5 tabs 01/08/22 mirabegron 25 mg tablet,extended 25 mg PO DAILY #30 tabs 01/08/22 release 24 hr (Myrbetriq) multivitamin,tx-minerals 1 tab PO DAILY #30 tabs 01/08/22 nutritional supplements 1 packet PO TID #90 ea 01/08/22 (Phlexy-Vits) sennosides 8.6 mg capsule (senna) 17.2 mg PO BID #120 caps 01/08/22 trimethobenzamide 300 mg capsule 300 mg PO QID PRN PRN #30 caps 01/08/22 methenamine hippurate 1 gram tablet 1 g PO TID recurrent UTI #90 tabs 05/16/22 ascorbic acid (vitamin C) 500 mg 500 mg PO QID #120 tabs 07/08/22 tablet Allergies Allergy/AdvReac Type Severity Reaction Status Date / Time No Known Allergies Allergy Verified 06/26/22 17:32 General Stated Complaint: Urinary LU: 3 Review of Systems Constitutional Constitutional: Denies chills and Denies fever(s) Gastrointestinal Gastrointestinal: Denies vomiting Genitourinary Genitourinary: Denies hematuria Integumentary/Breasts Skin/Breast: Denies rash PFSH All Active Problems (Updated 08/01/22 @ 15:48 by KAN Randolph) Suprapubic catheter dysfunction (Acute) Bladder stones (Acute) Palliative care patient (Acute) Bronchospasm (Acute) Neurogenic bowel (Chronic) Insomnia (Acute) Weight gain (Acute) Neck pain (Acute) Decubitus skin ulcer (Acute) Insomnia (Acute) Constipation due to neurogenic bowel (Acute) Chronic recurrent multifocal osteomyelitis (Chronic) S/P colostomy (Chronic) Acute osteomyelitis of sacrum (Chronic) Major depressive disorder (Chronic) Neurogenic bladder (Chronic) Quadriplegia (Chronic) Medical History Acute embolism and thrombosis of deep vein of right lower extremity Anxiety disorder Aspiration into airway C. difficile colitis Constipation Decubitus ulcer of buttock, stage 4 Dislocation of C6/C7 cervical vertebrae DNR (do not resuscitate) DVT (deep venous thrombosis) DVT prophylaxis Encounter for wound care Fall down embankment Fusion of spine H/O deep venous thrombosis Hypokalemia Hypotension Ileus Iron deficiency anemia Large bowel obstruction Malnutrition following gastrointestinal surgery Open wound of abdominal wall Physician orders for life-sustaining treatment (POLST) form indicates patient wish for [id number] status Right arm pain Visit for wound check Surgical History History of infusaport central venous catheter insertion Suprapubic catheter Social History Smoking/Tobacco Use Status: Never Smoking risk assessment performed?: Yes Alcohol Intake: current Alcohol Intake frequency: holidays/special occasions only Drug use: Daily Substance use type: marijuana Do you feel safe at home: Yes Do you feel safe in your relationship?: Yes Additional Social history: unable to assess privately Exam Const General: cooperative, comfortable and no acute distress Orientation: alert, awake and oriented x3 HENMT Head: normal to inspection, normocephalic and atraumatic Face and sinus: normal facial exam Mouth: moist mucous membranes Eyes General: appearance normal, both eyes and all related structures Conjunctivae: conjunctivae normal Neck Neck: normal visual inspection, trachea midline and supple Resp Effort & Inspection: normal respiratory effort and able to speak in complete sentences Auscultation: clear to auscultation bilaterally Cardio Rate: regular rate Rhythm: regular rhythm GI Palpation: soft, not firm, no guarding and no pulsatile masses Auscultation: normal bowel sounds Other: Draining unremarkable suprapubic catheter in place Skin General skin exam: no rashes or lesions noted Neuro General: patient alert, patient awake, moves all extremities and no focal motor deficits Sensory Exam: no sensory deficits noted Psych Appearance: grossly normal Mental Status: mental status grossly normal Course Vital Signs Vital signs: Vital Signs Temperature 37.2 C 08/01/22 12:00 Pulse 47 L 08/01/22 12:00 Respiratory Rate 16 08/01/22 12:00 Blood Pressure 208/77 H 08/01/22 12:00 Pulse Oximetry 94 08/01/22 12:00 Temperature 37.2 C 08/01/22 12:00 Temperature Source Tympanic 08/01/22 12:00 Pulse 47 L 08/01/22 12:00 Respiratory Rate 16 08/01/22 12:00 Blood Pressure 208/77 H 08/01/22 12:00 Blood Pressure Position Sitting 08/01/22 12:00 Pulse Oximetry 94 08/01/22 12:00 Oxygen Delivery Method Room Air 08/01/22 12:00 Oxygen Flow Rate 0 08/01/22 12:00 Pain Level 0 08/01/22 12:00
[2022-08-01 13:10] LABS: Bilirubin Negative (Negative); Blood Large (Negative); Clarity Clear (Clear); Glucose Negative (Negative); Ketones Negative (Negative); Leukocyte Esterase Moderate (Negative); Nitrite Negative (Negative); Specific Gravity 1.015 (1.005-1.025); Urobilinogen 0.2 EU/dL (Up TO 0.2)
[2022-08-01 13:18] LABS: Bacteria Few HPF (Negative); C & S Indicated? Yes; Casts 0-2 Hyaline LPF (Negative); Crystals Negative HPF (Negative); Epithelial Cells Few HPF (Negative); Mucus Negative (Negative); RBC 20-50 HPF (0-2)
[2022-08-01] MEDS: Normal Saline 1,000 ML 1000 ML IV (13:53)
[2022-08-01 14:01] LABS: Abs Immature Grans 0.03 10^3/uL (0.0-0.06); Absolute Basophil Count 0.05 10^3/uL (0.0-0.2); Absolute Eosinophil Count 0.37 10^3/uL (0.0-0.7); Absolute Lymphocyte Count 1.72 10^3/uL (1.2-3.4); Absolute Neutrophil Count 5.36 10^3/uL (1.2-6.7); Basophils % 0.6; Eosinophils % 4.6; HCT 41.2 % (40.0-50.0); HGB 13.6 g/dL (13.5-17.5); Immature Grans % 0.4; Lymphocytes % 21.4; MCV 88 fL (80-95); Monocytes % 6.2; Neutrophils % 66.8; Platelet Count 231 10^3/uL (130-400); RBC 4.69 10^6/uL (4.36-5.78); RDW 13.9 % (11.8-14.1); RDW-SD 44.3 fL; WBC 8.03 10^3/uL (4.4-10.8)
[2022-08-01 14:15] VITALS: BP 103/62; PULSE 68; O2SAT 94
[2022-08-01 14:17] LABS: ALT 15 U/L (16-63); AST 14 U/L (15-37); Albumin 3.7 g/dL (3.4-5.0); Alkaline Phosphatase 85 U/L (46-116); Anion Gap 10.6 mmol/L (3-11); BUN 21 mg/dL (7-18); Bilirubin, Total 0.3 mg/dL (0.2-1.0); CO2 22.4 mmol/L (21.0-32.0); CREATININE 0.9 mg/dL (0.70-1.30); Calcium 9.4 mg/dL (8.5-10.1); Chloride 109 mmol/L (98-107); Estimated GFR 100.86 (mL/min/1.73m2); Glucose 96 mg/dL (74-106); Sodium 142 mmol/L (136-145); Total Protein 7.3 g/dL (6.4-8.2)
[2022-08-01 15:02] VITALS: BP 103/66; PULSE 84; RESP 18; O2SAT 95
== END 2022-08-01 18:47 | disposition home or self-care (01) ==
PROVIDERS: Emergency Provider Physician Assistant; PCP Nurse Practitioner Family
DX: T83.098A Other mechanical complication of other urinary catheter, initial encounter (principal); R00.1 Bradycardia, unspecified; I10 Essential (primary) hypertension; Y83.8 Other surgical procedures as the cause of abnormal reaction of the patient, or of later complication, without mention of misadventure at the time of the procedure
CPT/HCPCS: 36415; 80053; 96360; 99284; 81003; 81015; 85025; 87086

== ENCOUNTER 2022-09-01 21:21 | Outpatient (REF) | payer MEDICAID, SELFPAY ==
[2022-09-01 21:31] LABS: Bilirubin Negative (Negative); Blood Large (Negative); Clarity Cloudy (Clear); Glucose Negative (Negative); Ketones Negative (Negative); Leukocyte Esterase Large (Negative); Nitrite Negative (Negative); Specific Gravity >= 1.030 (1.005-1.025); Urobilinogen 0.2 EU/dL (Up TO 0.2); pH 6.5 (5-8)
[2022-09-01 21:49] LABS: Bacteria Many HPF (Negative); C & S Indicated? Yes; Casts Negative LPF (Negative); Crystals Negative HPF (Negative); Epithelial Cells Rare HPF (Negative); Mucus Moderate (Negative); WBC >50 HPF (0-5)
== END 2022-09-01 21:22 | disposition home or self-care (01) ==
LOC: LBN 21:21
PROVIDERS: PCP Nurse Practitioner Family; Visit Provider Family Medicine
DX: Z46.6 Encounter for fitting and adjustment of urinary device (principal); Z93.59 Other cystostomy status; R82.998 Other abnormal findings in urine
CPT/HCPCS: 87077; 81003; 81015; 87086; 87186

== ENCOUNTER 2022-09-24 17:38 | Outpatient (REF) | payer MEDICAID, SELFPAY ==
[2022-09-24 18:15] LABS: Bilirubin Negative (Negative); Blood Small (Negative); Clarity Cloudy (Clear); Glucose Negative (Negative); Ketones Negative (Negative); Leukocyte Esterase Moderate (Negative); Nitrite Negative (Negative); Urobilinogen 0.2 EU/dL (Up TO 0.2); pH 6.5 (5-8)
[2022-09-24 18:26] LABS: Bacteria Few HPF (Negative); Crystals Negative HPF (Negative); Epithelial Cells Rare HPF (Negative); Mucus Trace (Negative); WBC >50 HPF (0-5)
[2022-09-24 18:27] LABS: C & S Indicated? Yes; Casts 3-5 Coarse Granular LPF (Negative)
== END 2022-09-24 17:39 | disposition home or self-care (01) ==
LOC: LBN 17:38
PROVIDERS: PCP Nurse Practitioner Family; Visit Provider Family Medicine
DX: N39.0 Urinary tract infection, site not specified (principal); Z93.59 Other cystostomy status
CPT/HCPCS: 87077; 81003; 81015; 87086; 87186

== ENCOUNTER 2022-12-06 10:34 | Outpatient (REF) | payer MEDICAID, SELFPAY ==
[2022-12-06 12:05] LABS: Bilirubin Negative (Negative); Blood Moderate (Negative); Clarity Sl Cloudy (Clear); Glucose Negative (Negative); Ketones Negative (Negative); Leukocyte Esterase Moderate (Negative); Nitrite Negative (Negative); Urobilinogen 0.2 EU/dL (Up TO 0.2)
[2022-12-06 12:14] LABS: Epithelial Cells Few HPF (Negative)
[2022-12-06 12:15] LABS: Bacteria Few HPF (Negative)
[2022-12-06 12:16] LABS: C & S Indicated? C&S Done As Ordered; Casts Negative LPF (Negative); Mucus Trace (Negative)
== END 2022-12-06 10:35 | disposition home or self-care (01) ==
LOC: LBN 10:34
PROVIDERS: PCP Nurse Practitioner Family; Visit Provider Family Medicine
DX: N39.0 Urinary tract infection, site not specified (principal)
CPT/HCPCS: 81003; 81015; 87086

== ENCOUNTER 2022-12-09 18:52 | Outpatient (REF) | payer MEDICAID, SELFPAY ==
[2022-12-09 20:07] LABS: ALT 15 U/L (16-63); AST 20 U/L (15-37); Albumin 3.6 g/dL (3.4-5.0); Alkaline Phosphatase 86 U/L (46-116); Anion Gap 10.1 mmol/L (3-11); BUN 15 mg/dL (7-18); Bilirubin, Total 0.3 mg/dL (0.2-1.0); CO2 23.9 mmol/L (21.0-32.0); CREATININE 0.9 mg/dL (0.70-1.30); Calcium 8.9 mg/dL (8.5-10.1); Chloride 107 mmol/L (98-107); Estimated GFR 100.86 (mL/min/1.73m2); Glucose 100 mg/dL (74-106); Potassium 4.4 mmol/L (3.5-5.1); Sodium 141 mmol/L (136-145); Total Protein 6.9 g/dL (6.4-8.2)
== END 2022-12-09 18:53 | disposition home or self-care (01) ==
LOC: NCHCN 18:52
PROVIDERS: PCP Nurse Practitioner Family; Visit Provider Nurse Practitioner Family
DX: Z13.228 Encounter for screening for other metabolic disorders (principal); Z00.00 Encounter for general adult medical examination without abnormal findings
CPT/HCPCS: 80053; 85027

== ENCOUNTER 2023-02-05 12:55 | Outpatient (REF) | payer MEDICAID, SELFPAY ==
[2023-02-05 12:21] LABS: Bilirubin Negative (Negative); Blood Large (Negative); Clarity Turbid (Clear); Glucose Negative (Negative); Ketones Negative (Negative); Leukocyte Esterase Large (Negative); Nitrite Positive (Negative); Specific Gravity >= 1.030 (1.005-1.025); Urobilinogen 0.2 mg/dL (Up to 0.2)
[2023-02-05 12:28] LABS: C & S Indicated? Yes; WBC >50 HPF (0-5)
== END 2023-02-05 12:56 | disposition home or self-care (01) ==
LOC: NCHCN 12:55
PROVIDERS: PCP Nurse Practitioner Family; Visit Provider Physician Assistant
DX: N39.0 Urinary tract infection, site not specified (principal)
CPT/HCPCS: 87077; 81003; 81015; 87086; 87186

== ENCOUNTER 2023-02-26 18:10 | Outpatient (REF) | payer MEDICAID, SELFPAY ==
[2023-02-26 18:45] LABS: Bilirubin Negative (Negative); Blood Large (Negative); Clarity Sl Cloudy (Clear); Glucose Negative (Negative); Ketones Trace mg/dL (Negative); Leukocyte Esterase Small (Negative); Nitrite Positive (Negative); Specific Gravity >= 1.030 (1.005-1.025); Urobilinogen 0.2 mg/dL (Up to 0.2); pH 6.5 (5-8)
[2023-02-26 18:59] LABS: Bacteria Moderate HPF (Negative); C & S Indicated? Yes; Casts Negative LPF (Negative); Crystals Negative HPF (Negative); Epithelial Cells Few HPF (Negative); Mucus Negative (Negative); WBC >50 HPF (0-5)
== END 2023-02-26 18:11 | disposition home or self-care (01) ==
LOC: LBN 18:10
PROVIDERS: PCP Nurse Practitioner Family; Visit Provider Family Medicine
DX: N39.0 Urinary tract infection, site not specified (principal)
CPT/HCPCS: 87077; 87186; 81003; 81015; 87086

== ENCOUNTER 2023-04-02 17:49 | Outpatient (REF) | payer MEDICARE, MEDICAID, SELFPAY ==
[2023-04-02 18:58] LABS: TSH (W/Ref FT4) 0.88 uIU/mL (0.36-3.74)
== END 2023-04-02 17:50 | disposition home or self-care (01) ==
LOC: LBN 17:49
PROVIDERS: PCP Family Medicine; Visit Provider Family Medicine
DX: F41.8 Other specified anxiety disorders (principal)
CPT/HCPCS: 84443

== ENCOUNTER 2023-04-05 10:30 | Outpatient (REF) | payer MEDICARE, MEDICAID, SELFPAY ==
[2023-04-05 10:46] LABS: Bilirubin Negative (Negative); Blood Large (Negative); Clarity Sl Cloudy (Clear); Glucose Negative (Negative); Ketones Negative (Negative); Leukocyte Esterase Large (Negative); Nitrite Positive (Negative); Specific Gravity 1.025 (1.005-1.025); Urobilinogen 0.2 mg/dL (Up to 0.2); pH 6.5 (5-8)
[2023-04-05 10:54] LABS: C & S Indicated? C&S Done As Ordered; WBC >50 HPF (0-5)
== END 2023-04-05 10:31 | disposition home or self-care (01) ==
LOC: LBN 10:30
PROVIDERS: Family Medicine; PCP Family Medicine; Visit Provider Family Medicine
DX: Z87.440 Personal history of urinary (tract) infections (principal); R82.998 Other abnormal findings in urine
CPT/HCPCS: 87077; 87186; 81003; 81015; 87086

== ENCOUNTER 2023-05-01 16:19 | Outpatient (REF) | payer MEDICARE, MEDICAID, SELFPAY ==
[2023-05-01 17:01] LABS: WBC >50 HPF (0-5)
[2023-05-01 17:02] LABS: Bacteria Moderate HPF (Negative); C & S Indicated? C&S Done As Ordered; Crystals Negative HPF (Negative); Epithelial Cells Negative HPF (Negative); Mucus Negative (Negative); Other Cells Few Yeast (Negative)
[2023-05-01 20:35] LABS: Bilirubin Negative (Negative); Blood Moderate (Negative); Clarity Sl Cloudy (Clear); Glucose Negative (Negative); Ketones Negative (Negative); Leukocyte Esterase Small (Negative); Nitrite Negative (Negative); Specific Gravity >= 1.030 (1.005-1.025); Urobilinogen 0.2 mg/dL (Up to 0.2); pH 5.5 (5-8)
== END 2023-05-01 16:20 | disposition home or self-care (01) ==
LOC: LBN 16:19
PROVIDERS: PCP Family Medicine; Visit Provider Family Medicine
DX: N39.0 Urinary tract infection, site not specified (principal)
CPT/HCPCS: 81003; 81015; 87086

== ENCOUNTER 2023-05-09 17:54 | Outpatient (REF) | payer MEDICARE, SELFPAY ==
[2023-05-09 18:12] LABS: Bilirubin Negative (Negative); Blood Moderate (Negative); Clarity Cloudy (Clear); Glucose Negative (Negative); Ketones 40 mg/dL (Negative); Leukocyte Esterase Moderate (Negative); Nitrite Positive (Negative); Specific Gravity <= 1.005 (1.005-1.025); Urobilinogen 0.2 mg/dL (Up to 0.2)
[2023-05-09 18:31] LABS: Bacteria Moderate HPF (Negative); C & S Indicated? C&S Done As Ordered; Casts Negative LPF (Negative); Crystals Negative HPF (Negative); Epithelial Cells Rare HPF (Negative); Mucus Negative (Negative); WBC 20-50 HPF (0-5)
== END 2023-05-09 17:55 | disposition home or self-care (01) ==
LOC: LBN 17:54
PROVIDERS: PCP Family Medicine; Visit Provider Family Medicine
DX: N39.0 Urinary tract infection, site not specified (principal)
CPT/HCPCS: 87077; 87186; 81003; 81015; 87086

== ENCOUNTER 2023-05-09 22:26 | Emergency (ER) | payer MEDICARE, SELFPAY ==
[2023-05-09] VITALS (10 sets, daily range): BP systolic 90–125; BP diastolic 56–76; PULSE 72–87; RESP 15–28; TEMP 36.9; O2SAT 95–98
--- NOTE | 2023-05-09 22:15 | RT.EKG_ITS ---
APPROVED REPORT Exam: Resting ECG Reason for Exam: DIFFICULTY BREATHING Patient Location: E HR:72 bpm ECG Measurements Heart Rate 72 AXIS DC 163 P 93 QRSd 117 QRS -81 QT 389 T 82 QTc 426 Conclusion Sinus rhythm...normal P axis, V-rate 60- 99 Incomplete RBBB and LAFB...axis(240,-40), S>R II III aVF
--- NOTE | 2023-05-09 22:30 | DI.RAD_ITS ---
Exam(s) XR PORTABLE CHEST AP EXAM: XR PORTABLE CHEST AP CLINICAL HISTORY: dyspnea TECHNIQUE: 2D digital imaging was performed. COMPARISON: CR XR CHEST 1V IN DI DEPT from 12/05/2021 FINDINGS: A port is again noted over the left upper chest with tip in the SVC. LUNGS: Clear. No pleural abnormality seen. HEART: Normal size. AORTA: Normal diameter. BONES: Hardware in cervical thoracic junction. Soft tissues: Unremarkable. IMPRESSION: No acute findings. DATA REPOSITORY: RADIATION DOSE DELIVERED:
[2023-05-09 23:02] LABS: Abs Immature Grans 0.04 10^3/uL (0.0-0.06); Absolute Eosinophil Count 0.12 10^3/uL (0.0-0.7); Absolute Lymphocyte Count 1.93 10^3/uL (1.2-3.4); Absolute Monocyte Count 1.06 10^3/uL (0.1-0.8); Absolute Neutrophil Count 8.51 10^3/uL (1.2-6.7); Basophils % 0.3; HCT 39.9 % (40.0-50.0); HGB 13.2 g/dL (13.5-17.5); Immature Grans % 0.3; Lymphocytes % 16.5; MCH 29.5 pg (27.0-33.0); MCHC 33.1 % (32.0-36.0); MCV 89 fL (80-95); MPV 11.2 fL (8.0-11.0); Monocytes % 9.1; Neutrophils % 72.8; Platelet Count 178 10^3/uL (130-400); RBC 4.48 10^6/uL (4.36-5.78); RDW 13.2 % (11.8-14.1); RDW-SD 43.5 fL; WBC 11.69 10^3/uL (4.4-10.8)
[2023-05-09 23:04] LABS: Absolute Basophil Count 0.04 10^3/uL (0.0-0.2)
[2023-05-09 23:24] LABS: ALT 29 U/L (16-63); AST 19 U/L (15-37); Albumin 3.1 g/dL (3.4-5.0); Alkaline Phosphatase 79 U/L (46-116); Anion Gap 7.9 mmol/L (3-11); BUN 13 mg/dL (7-18); Bilirubin, Total 0.5 mg/dL (0.2-1.0); CO2 29.1 mmol/L (21.0-32.0); CREATININE 1.1 mg/dL (0.70-1.30); Calcium 8.9 mg/dL (8.5-10.1); Chloride 108 mmol/L (98-107); Estimated GFR 78.79 (mL/min/1.73m2); Glucose 143 mg/dL (74-106); Magnesium 1.7 mg/dL (1.8-2.4); Potassium 3.9 mmol/L (3.5-5.1); Sodium 145 mmol/L (136-145); Total Protein 6.9 g/dL (6.4-8.2); Troponin I < 50 ng/L (<or=60)
[2023-05-10] VITALS (77 sets, daily range): BP systolic 94–145; BP diastolic 49–81; PULSE 72–100; RESP 17–35; O2SAT 93–97
--- NOTE | 2023-05-10 00:37 | DI.VRAD_ITS ---
PROCEDURE INFORMATION: Exam: XR Chest Exam date and time: 05/09/2023 11:46 PM Age: 58 years old Clinical indication: Dyspnea TECHNIQUE: Imaging protocol: Radiologic exam of the chest. Views: 1 view. COMPARISON: CR XR CHEST 1V IN DI DEPT 12/05/2021 3:36 PM FINDINGS: Tubes, catheters and devices: Left subclavian infusion port remains in place. Lungs: Unremarkable. No consolidation. Pleural spaces: Unremarkable. No pleural effusion. No pneumothorax. Heart/Mediastinum: Unremarkable. No cardiomegaly. Bones/joints: Partially visualized orthopedic hardware in the lower cervical spine. IMPRESSION: No acute disease Dictated and Authenticated by: Crispin Horn MD. Ordering:CESAR Kendall MD
--- NOTE | 2023-05-10 01:30 | DI.CT_ITS ---
Exam(s) CT CHEST PE CTA EXAM: CT CHEST PE CTA CLINICAL HISTORY: acute dyspnea. TECHNIQUE: Imaging Protocol: Axial CT angiography was performed with multi-slice acquisition and mu lti-planar reconstructions as well as axial, coronal and sagittal MIP reconstructions. CONTRAST MATERIAL: Intravenous: Omnipaque 350 Contrast volume:100 ml COMPARISON: CT CT ABDOMEN PELVIS W from 06/26/2022 FINDINGS: Exam is limited by respiratory motion. Small distal emboli cannot be excluded. Pulmonary Arteries: No evidence of filling defect to suggest pulmonary emboli. Tracheobronchial tree: Patent where visualized. Mediastinum and Parvin: No dominant adenopathy or fluid collection. Pulmonary parenchyma: Dependent changes and respiratory motion. Left basilar atelectasis. No consol idation or dominant measurable mass. Pleura: No effusion or pneumothorax. Heart: The heart is not dilated. Mild coronary artery calcifications are seen. Aorta: Thoracic aorta non-dilated. No aneurysm. No dissection. Upper abdomen: Unremarkable. Bones: Hardware cervical thoracic junction. Degenerative changes in the spine. Tubes, Catheters, and Lines: Port-A-Cath left chest wall IMPRESSION: No evidence of pulmonary embolism. Mild left basilar atelectasis. RADIATION DOSE DELIVERED: 489.55mGy.cm Total DLP DATA REPOSITORY: All CT scans at this facility are submitted to the National Radiology Data Registry (NRDR) Dose Index Registry (DIR) with the [employer] (A[employer]). RADIATION OPTIMIZATION: All CT scans at this facility use at least one of these dose optimization te chniques: automated exposure control; mA and/or kV adjustment per patient size (includes targeted exa ms where dose is matched to clinical indication); or iterative reconstruction.
[2023-05-10 01:33] LABS: D-Dimer 1069 ng/mlFEU (<500)
[2023-05-10] MEDS: Normal Saline Flush 10 ML SYR IVP (01:41)
[2023-05-10] MEDS: Normal Saline - Diluent 50 ML VIAL IJ (02:07)
[2023-05-10] MEDS: Omnipaque 350 MG/ML 100 ML BTL IJ (02:07)
--- NOTE | 2023-05-10 03:17 | DI.VRAD_ITS ---
PROCEDURE INFORMATION: Exam: CTA Chest With Contrast Exam date and time: 05/10/2023 1:59 AM Age: 58 years old Clinical indication: Patient HX: Acute dyspnea TECHNIQUE: Imaging protocol: Computed tomographic angiography of the chest with contrast. Exam focused on the arteries. 3D rendering (Not supervised by radiologist): MIP and/or 3D reconstructed images were created by the technologist. Contrast material: OMNIPAQUE 350; Contrast volume: 100 ml; Contrast route: INTRAVENOUS (IV); COMPARISON: CT CHEST/ABD/PEL W 10/26/2020 8:50 PM FINDINGS: Tubes, catheters and devices: Implanted Port-A-Cath in the left anterior chest wall with its tip in the superior vena cava. Pulmonary arteries: No pulmonary embolism identified. Small and distal pulmonary arteries partially obscured by artifact from breathing motion and not well evaluated for diagnosis or exclusion of small or distal pulmonary emboli. Aorta: No thoracic aortic aneurysm or dissection. Thyroid: Normal sized thyroid gland. Lungs: Mild streaky and dependent atelectasis. No pulmonary consolidation. Pleural spaces: No pleural effusion or pneumothorax. Heart: Normal sized heart. Lymph nodes: No pathologically enlarged mediastinal or hilar lymph nodes. Bones/joints: Lower ribs partially excluded from view and incompletely evaluated. Otherwise, no acute fracture seen among the bones of the chest. Lower posterior cervical fixation hardware partially visualized. Anterior vertebral osteophytes at several levels. Soft tissues: No gross soft tissue mass or fluid collection seen in the chest wall. IMPRESSION: No active disease is seen in the chest. Dictated and Authenticated by: Feng Almanza MD. Ordering:CESAR Kendall MD
--- NOTE | 2023-05-10 03:25 | ED.GENADUL_ITS ---
Discharge Plan Disposition Patient Disposition: Home Condition: Good Discharge Details Clinical Impression: Acute dyspnea Primary Care Provider: Genevieve Baez ED Provider: Enoch Nina Home Meds and New Rx's Prescriptions: New sulfamethoxazole-trimethoprim [Bactrim DS] 800-160 mg tablet 1 tab PO Q12H Qty: 20 0RF Continued baclofen 20 mg tablet 60 mg PO TID Qty: 270 6RF lorazepam 1 mg tablet 1 mg PO TID MDD 3 mg Qty: 90 5RF diclofenac sodium [Voltaren Arthritis Pain] 1 % gel 4 g topical QID PRN (Reason: muscle pain) Qty: 100 5RF Rx Instructions: apply to painful muscles sildenafil 100 mg tablet 100 mg PO DAILY PRN (Reason: sexual activity) Qty: 30 3RF Rx Instructions: administer 30 minutes to 4 hours before activity. Call [employer] for credit card number. He knows its self pay mupirocin 2 % ointment 1 applic topical BID Qty: 30 0RF Rx Instructions: apply to scabs on abdomen and around cath site for 7 days nystatin 100,000 unit/gram powder 1 applic topical BID Qty: 60 4RF methenamine hippurate 1 gram tablet 1 g PO TID Qty: 90 6RF Hold Instructions: Home Medication placed on hold at Doctor's office ascorbic acid (vitamin C) [Vitamin C] 500 mg tablet See Rx Instructions .ROUTE .COMPLEX Qty: 112 0RF Dose Instruction: TAKE 1 TABLET BY MOUTH FOUR TIMES A DAY Rx Instructions: TAKE 1 TABLET BY MOUTH FOUR TIMES A DAY fluconazole 150 mg tablet 150 mg PO Q48H Qty: 7 0RF Rx Instructions: yeast urinary tract infection cholecalciferol (vitamin D3) 25 mcg (1,000 unit) Tablet 1,000 units PO DAILY Qty: 30 0RF Phlexy-Vits Powder In Packet 1 packet PO TID Qty: 90 0RF Myrbetriq 25 mg Tablet Extended Release 24 Hr 25 mg PO DAILY Qty: 30 0RF bisacodyl 10 mg Suppository 10 mg MA DAILY PRN PRN (Reason: Constipation) Qty: 10 0RF acetaminophen [Tylenol] 325 mg tablet 650 mg PO Q6H PRN PRN (Reason: fever or pain) Qty: 30 0RF docusate sodium [Colace] 100 mg capsule 100 mg PO TID Qty: 90 0RF multivitamin,tx-minerals Tablet 1 tab PO DAILY Qty: 30 0RF senna 8.6 mg capsule 17.2 mg PO BID Qty: 120 0RF Lactobacillus acidoph-L.bulgar [Floranex] 1 million cell tablet 1 tab PO TID Qty: 90 0RF Mag-Delay 64 mg tablet,delayed release (DR/EC) 128 mg PO BID Discharge Instructions Instructions: Dyspnea (ED) Additional Instructions: Cause of your episode of shortness of breath is not clear. Please contact your primary care provider to let them know of your visit to the emergency department. Please monitor yourself for fevers over the next 24 to 48 hours. Return the emergency department if you have a repeat episode of shortness of breath. Medical Decision Making Patient with an episode of acute shortness of breath at home. On arrival to the ED symptoms had resolved. Did not require oxygen support. White blood cell count elevated to 13,[address] scan of the chest negative for focal infiltrate. Patient had stable vital signs with no spiking temperature. Pneumonia and pulmonary embolism effectively excluded. Does not appear as heart failure. Observed for extended period of time in the ED with no repeat episode. Per patient he was supposed to be on an antibiotic for potential UTI. States that a urinalysis and urine culture was obtained several days ago but I do not see this in our system. He states that the antibiotic was sent to his home pharmacy however he has not received it at home. Will cover empirically with Bactrim DS twice daily for 10 days. Told the patient that if the other antibiotic ordered by his provider arrives to the home to contact his provider to see if he should initiate or discontinue the Bactrim. Differential Diagnosis Differential Diagnosis: Pneumonia/PE/bronchospasm/heart failure Medical Records Medical records reviewed: Yes I reviewed the patient's medical records. Imaging Data Radiologic Study: Attestation: I personally reviewed and interpreted this imaging study as follows: Imaging: X-Ray My impression: No focal infiltrate consistent with pneumonia Lab Data Lab results reviewed: Yes I reviewed the patient's lab results. Lab results narrative: Positive D-dimer which led to CT angiogram of the chest. No significant electrolyte abnormality. No significant anemia. Slight elevation of white blood cell count. HPI General Date/Time Provider Initiated Documentation: 05/09/23 22:37 . Limitations to Documentation: no limitations . Information obtained by: patient . HPI Narrative: Mr. Velasquez is a 58-year-old gentleman with a history of a C5-C6 cervical injury. 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 States that late last night he had acute onset of shortness of breath that lasted approximately 20 minutes. He was placed on oxygen empirically by EMS however his oxygen saturation was not observed to be lower than 94%. On presentation to the emergency department the patient stated that the episode had resolved. He denies recent cough, congestion or fevers. No history of asthma, heart failure, COPD or cardiac disease. He does state that he had an episode of diaphoresis during episode of shortness of breath. Due to his C5-C6 injury the patient is asensate from about the mid chest down. His recent hospitalizations and states that while he had significant sacral ulcers in the past with home wound care therapy these are almost entirely resolved. Related Data Home Medications Medication Instructions Recorded Confirmed Lactobacillus acidoph-L.bulgaricus 1 tab PO TID #90 tabs 01/08/22 05/04/23 1 million cell tablet (Floranex) acetaminophen 325 mg tablet 650 mg PO Q6H PRN PRN fever or 01/08/22 05/04/23 (Tylenol) pain #30 tabs bisacodyl 10 mg rectal suppository 10 mg MA DAILY PRN PRN 01/08/22 05/04/23 Constipation #10 ea cholecalciferol (vitamin D3) 25 1,000 units PO DAILY #30 tabs 01/08/22 05/04/23 mcg (1,000 unit) tablet docusate sodium 100 mg capsule 100 mg PO TID #90 caps 01/08/22 05/04/23 (Colace) mirabegron 25 mg tablet,extended 25 mg PO DAILY #30 tabs 01/08/22 05/04/23 release 24 hr (Myrbetriq) multivitamin,tx-minerals 1 tab PO DAILY #30 tabs 01/08/22 05/04/23 nutritional supplements 1 packet PO TID #90 ea 01/08/22 05/04/23 (Phlexy-Vits) sennosides 8.6 mg capsule (senna) 17.2 mg PO BID #120 caps 01/08/22 05/04/23 magnesium chloride 64 mg 128 mg PO BID 02/24/22 05/04/23 (magnesium chloride) tablet,delayed release (Mag-Delay) nystatin 100,000 unit/gram topical 1 applic topical BID #60 grams 09/29/22 05/04/23 powder methenamine hippurate 1 gram tablet 1 g PO TID recurrent UTI #90 tabs 12/01/22 05/04/23 baclofen 20 mg tablet 60 mg PO TID #270 tabs 02/27/23 05/04/23 diclofenac sodium 1 % topical gel 4 g topical QID PRN muscle pain 02/27/23 05/04/23 (Voltaren Arthritis Pain) #100 grams lorazepam 1 mg tablet 1 mg PO TID #90 tabs 02/27/23 05/04/23 mupirocin 2 % topical ointment 1 applic topical BID #30 grams 03/02/23 05/04/23 ascorbic acid (vitamin C) 500 mg See Rx Instructions .Route 03/16/23 05/04/23 tablet (Vitamin C) .COMPLEX #112 tabs fluconazole 150 mg tablet 150 mg PO Q48H #7 tabs 05/03/23 05/04/23 sildenafil 100 mg tablet 100 mg PO DAILY PRN sexual 05/04/23 05/04/23 activity #30 tabs sulfamethoxazole 800 1 tab PO Q12H #20 tabs 05/10/23 mg-trimethoprim 160 mg tablet (Bactrim DS) Previous Rx's Medication Instructions Recorded Lactobacillus acidoph-L.bulgaricus 1 tab PO TID #90 tabs 01/08/22 1 million cell tablet (Floranex) acetaminophen 325 mg tablet 650 mg PO Q6H PRN PRN fever or 01/08/22 (Tylenol) pain #30 tabs bisacodyl 10 mg rectal suppository 10 mg MA DAILY PRN PRN 01/08/22 Constipation #10 ea cholecalciferol (vitamin D3) 25 1,000 units PO DAILY #30 tabs 01/08/22 mcg (1,000 unit) tablet docusate sodium 100 mg capsule 100 mg PO TID #90 caps 01/08/22 (Colace) mirabegron 25 mg tablet,extended 25 mg PO DAILY #30 tabs 01/08/22 release 24 hr (Myrbetriq) multivitamin,tx-minerals 1 tab PO DAILY #30 tabs 01/08/22 nutritional supplements 1 packet PO TID #90 ea 01/08/22 (Phlexy-Vits) sennosides 8.6 mg capsule (senna) 17.2 mg PO BID #120 caps 01/08/22 nystatin 100,000 unit/gram topical 1 applic topical BID #60 grams 09/29/22 powder methenamine hippurate 1 gram tablet 1 g PO TID recurrent UTI #90 tabs 12/01/22 baclofen 20 mg tablet 60 mg PO TID #270 tabs 02/27/23 diclofenac sodium 1 % topical gel 4 g topical QID PRN muscle pain 02/27/23 (Voltaren Arthritis Pain) #100 grams lorazepam 1 mg tablet 1 mg PO TID #90 tabs 02/27/23 mupirocin 2 % topical ointment 1 applic topical BID #30 grams 03/02/23 ascorbic acid (vitamin C) 500 mg See Rx Instructions .Route 03/16/23 tablet (Vitamin C) .COMPLEX #112 tabs fluconazole 150 mg tablet 150 mg PO Q48H #7 tabs 05/03/23 sildenafil 100 mg tablet 100 mg PO DAILY PRN sexual 05/04/23 activity #30 tabs sulfamethoxazole 800 1 tab PO Q12H #20 tabs 05/10/23 mg-trimethoprim 160 mg tablet (Bactrim DS) Allergies Allergy/AdvReac Type Severity Reaction Status Date / Time No Known Allergies Allergy Verified 06/26/22 17:32 General Stated Complaint: SOB LU: 2 Review of Systems Narrative: CONST: Negative for fever, body aches and chills. HENT: Negative for neck pain/stiffness, headache, congestion, sore throat, swelling. EYES: Negative for discharge/pain or vision changes. RESP: Negative for cough/hemoptysis and shortness of breath. CV: Negative chest pain ABD: Negative pain, nausea, vomiting. : blood in urine or stool. MUSC: SKIN: + lesions/sores. NEURO: Negative headache, dizziness, weakness. PFSH All Active Problems Acute dyspnea (Acute) Anxiety disorder (Acute) History of UTI (Acute) Bladder stones (Acute) Palliative care patient (Acute) Neck pain (Acute) Decubitus skin ulcer (Acute) Insomnia (Acute) Constipation due to neurogenic bowel (Acute) Chronic recurrent multifocal osteomyelitis (Chronic) Acute osteomyelitis of sacrum (Chronic) Major depressive disorder (Chronic) Neurogenic bladder (Chronic) Quadriplegia (Chronic) Medical History Acute embolism and thrombosis of deep vein of right lower extremity DIAMOND (acute kidney injury) Aspiration into airway Bronchospasm C. difficile colitis Constipation Decubitus ulcer of buttock, stage 4 Dislocation of C6/C7 cervical vertebrae DNR (do not resuscitate) DVT (deep venous thrombosis) DVT prophylaxis Encounter for wound care Fall down embankment Fusion of spine H/O deep venous thrombosis Hypokalemia Hypotension Ileus Insomnia Iron deficiency anemia Large bowel obstruction Low magnesium level Malnutrition following gastrointestinal surgery Muscle spasm Neurogenic bowel Open wound of abdominal wall Physician orders for life-sustaining treatment (POLST) form indicates patient wish for [id number] status Right arm pain Visit for wound check Weight gain Surgical History History of infusaport central venous catheter insertion S/P colostomy Suprapubic catheter Social History Smoking/Tobacco Use Status: Never Smoking risk assessment performed?: Yes Alcohol Intake: current Alcohol Intake frequency: holidays/special occasions only Drug use: Daily Substance use type: marijuana Do you feel safe at home: Yes Do you feel safe in your relationship?: Yes Additional Social history: unable to assess privately Exam Narrative Exam Narrative: GENERAL APPEARANCE NAD, no cyanosis, pallor, or diaphoresis. EYES lids/conjunctiva normal. EARS/NOSE/THROAT Mucous membranes moist, nares normal, lips/teeth normal uvula midline without oral pharyngeal erythema, exudate or swelling No lymphangitis/lymphedema. HEAD/NECK normocephalic atraumatic, no facial trauma, neck is supple. RESPIRATORY respiratory effort normal, speaks in full sentences, no tripod position, no accessory muscle use. Lungs clear to auscultation without rhonchi, wheezes, rales CARDIAC Regular rate and rhythm, no edema. ABDOMINAL Soft, ND/NT. rebound tenderness, [place] sign or pain over Mcburney's point. Transcutaneous Beck catheter placed. No extending erythema from the suprapubic os. MUSCLES/EXTREMITIES no skin breakdown, no ecchymosis, lower extremities with muscle wasting and contractures consistent with cord injury. SKIN Warm, pink and dry. No rashes, dermatoses, petechiae or small punctate lesion over the sacrum, healed sacral decubiti NEUROLOGICAL Speech is clear and appropriate. Normal level of consciousness. 3 out of 5 bilateral upper extremity strength. Weakness of the hands and lower extremities consistent with C5-C6 level cord injury PSYCH Normal mood and affect. Judgement/competence is appropriate Course Reevaluation(s) Time: 08:07 Reevaluation: Patient reassessed at the time of transport via ambulance home. No repeat episode of shortness of breath patient is calm comfortable not requiring oxygen support. Stable for outpatient management with the understanding that he has close outpatient follow-up and should he have a repeat episode of the shortness of breath to return to the emergency department via EMS if it is not quickly resolved. Vital Signs Vital signs: Vital Signs Temperature 36.9 C 05/09/23 22:29 Pulse 78 05/09/23 22:29 Respiratory Rate 15 05/09/23 22:29 Blood Pressure 100/60 05/09/23 22:29 Pulse Oximetry 95 05/09/23 22:29 Temperature 36.9 C 05/09/23 22:29 Pulse 86 05/10/23 00:30 Pulse 85 05/10/23 00:31 Respiratory Rate 23 05/10/23 00:31 Respiratory Effort Normal, Non-Labored 05/09/23 23:08 Respiratory Depth Normal 05/09/23 23:08 Respiratory Pattern Normal 05/09/23 23:08 Blood Pressure 125/65 05/10/23 00:30 Blood Pressure Mean 80 05/10/23 00:30 Blood Pressure Position Supine 05/09/23 22:29 Pulse Oximetry 96 05/10/23 00:31 Oxygen Delivery Method Room Air 05/09/23 22:29 Oxygen Flow Rate 0 05/09/23 22:29 Lab/Test Results Lab/Test Results: Laboratory Tests Range/Units 05/09/23 05/09/23 05/09/23 22:50 22:50 22:50 WBC (4.4-10.8) 10^3/uL 11.69 H RBC (4.36-5.78) 10^6/uL 4.48 Hgb (13.5-17.5) g/dL 13.2 L Hct (40.0-50.0) % 39.9 L MCV (80-95) fL 89 MCH (27.0-33.0) pg 29.5 MCHC (32.0-36.0) % 33.1 RDW (11.8-14.1) % 13.2 Plt Count (130-400) 10^3/uL 178 MPV (8.0-11.0) fL 11.2 H Immature Gran % 0.3 Neutrophils % 72.8 Lymphocytes % 16.5 Monocytes % 9.1 Eosinophils % 1.0 Basophils % 0.3 Nucleated RBC % (0.0-0.3) % 0.0 Absolute Neutrophils (1.2-6.7) 10^3/uL 8.51 H Absolute Lymphocytes (1.2-3.4) 10^3/uL 1.93 Absolute Monocytes (0.1-0.8) 10^3/uL 1.06 H Absolute Eosinophils (0.0-0.7) 10^3/uL 0.12 Absolute Basophils (0.0-0.2) 10^3/uL 0.04 D-Dimer (<500) ng/mlFEU 1069 H Sodium (136-145) mmol/L 145 Potassium (3.5-5.1) mmol/L 3.9 Chloride (98-107) mmol/L 108 H Carbon Dioxide (21.0-32.0) mmol/L 29.1 Anion Gap (3-11) mmol/L 7.9 BUN (7-18) mg/dL 13 Creatinine (0.70-1.30) mg/dL 1.1 Est GFR (CKD-EPI 2020) (mL/min/1.73m2) 78.79 Glucose (74-106) mg/dL 143 H Calcium (8.5-10.1) mg/dL 8.9 Magnesium (1.8-2.4) mg/dL 1.7 L Total Bilirubin (0.2-1.0) mg/dL 0.5 AST (15-37) U/L 19 ALT (16-63) U/L 29 Alkaline Phosphatase (46-116) U/L 79 Troponin I (<or=60) ng/L < 50 Total Protein (6.4-8.2) g/dL 6.9 Albumin (3.4-5.0) g/dL 3.1 L
== END 2023-05-10 07:51 | disposition home or self-care (01) ==
PROVIDERS: Emergency Provider Emergency Medicine; PCP Family Medicine
DX: R06.09 Other forms of dyspnea (principal); I45.2 Bifascicular block; R79.1 Abnormal coagulation profile; G82.50 Quadriplegia, unspecified; Z98.1 Arthrodesis status; Z79.899 Other long term (current) drug therapy
CPT/HCPCS: 71275; 80053; 93005; 99285; 71045; 83735; 84484; 85025; 85379; 93010; 99284; J3490

== ENCOUNTER 2023-05-17 07:31 | Emergency (ER) | payer MEDICARE, SELFPAY ==
[2023-05-17 07:24] VITALS: BP 130/82; PULSE 78; RESP 18; TEMP 36.8; O2SAT 96
[2023-05-17 07:42] VITALS: RESP 18
--- NOTE | 2023-05-17 07:45 | RT.EKG_ITS ---
APPROVED REPORT Exam: Resting ECG Reason for Exam: AMS Patient Location: E HR:75 bpm ECG Measurements Heart Rate 75 AXIS HI 175 P 76 QRSd 108 QRS -102 QT 398 T 73 QTc 444 Conclusion NSR, rate 75 appropriate intervals normal axis no ST segement or T wave abnormalities to suggest occlusive NC
[2023-05-17 08:22] LABS: BE (Venous) -1 mmol/L (-2-3); HCO3 (Venous) 24 mmol/L (23-28); O2 Sat (Venous) 76 %; TCO2 (Venous) 22 mmol/L (24-29); pCO2 (Venous) 41 mmHg (41-51); pH (Venous) 7.38 (7.31-7.41); pO2 (Venous) 41 mmHg
[2023-05-17 08:24] LABS: Abs Immature Grans 0.12 10^3/uL (0.0-0.06); Absolute Basophil Count 0.05 10^3/uL (0.0-0.2); Absolute Eosinophil Count 0.14 10^3/uL (0.0-0.7); Absolute Monocyte Count 1.02 10^3/uL (0.1-0.8); Basophils % 0.3; Eosinophils % 0.9; HCT 40.1 % (40.0-50.0); HGB 13.5 g/dL (13.5-17.5); Immature Grans % 0.8; Lymphocytes % 15.3; MCHC 33.7 % (32.0-36.0); MCV 86 fL (80-95); MPV 10.3 fL (8.0-11.0); Monocytes % 6.4; Neutrophils % 76.3; Platelet Count 330 10^3/uL (130-400); RBC 4.66 10^6/uL (4.36-5.78); RDW 13.2 % (11.8-14.1); RDW-SD 40.9 fL; WBC 15.98 10^3/uL (4.4-10.8)
[2023-05-17 08:25] LABS: Absolute Lymphocyte Count 2.44 10^3/uL (1.2-3.4); Absolute Neutrophil Count 12.19 10^3/uL (1.2-6.7)
[2023-05-17 08:49] LABS: ALT 27 U/L (16-63); AST 20 U/L (15-37); Albumin 3.5 g/dL (3.4-5.0); Alkaline Phosphatase 78 U/L (46-116); Anion Gap 8.7 mmol/L (3-11); BUN 16 mg/dL (7-18); Bilirubin, Total 0.3 mg/dL (0.2-1.0); CO2 24.3 mmol/L (21.0-32.0); Calcium 9.5 mg/dL (8.5-10.1); Chloride 106 mmol/L (98-107); Estimated GFR 88.33 (mL/min/1.73m2); Glucose 121 mg/dL (74-106); Potassium 3.9 mmol/L (3.5-5.1); Sodium 139 mmol/L (136-145); Total Protein 7.5 g/dL (6.4-8.2); Troponin I < 50 ng/L (<or=60)
--- NOTE | 2023-05-17 09:59 | DI.RAD_ITS ---
Exam(s) XR PORTABLE CHEST AP EXAM: XR PORTABLE CHEST AP CLINICAL HISTORY: weakness, AMS. TECHNIQUE: 2D digital imaging was performed. COMPARISON: CR,XR XR PORTABLE CHEST AP from 05/09/2023 FINDINGS: Single AP portable view. Distal tab of the left subclavian Port-A-Cath remains in good position in the lower SVC. Fusion hard armijo in the cervical spine is again noted. Heart size is upper normal. The mediastinum is not widened. Lungs are clear. No infiltrates nor obvious pleural effusions. No pneumothorax. No fractures evident. IMPRESSION: No acute pulmonary findings on this single AP portable view of the chest.Satisfactory position of the left subclavian Port-A-Cath. DATA REPOSITORY: RADIATION DOSE DELIVERED:
--- NOTE | 2023-05-17 10:10 | ED.GENADUL_ITS ---
Discharge Plan Disposition Patient Disposition: Home Condition: Stable Discharge Details Clinical Impression: Urinary tract infection, Palliative care patient, Quadriplegia, Neck pain, Neurogenic bladder Primary Care Provider: Genevieve Baez ED Provider: Lucie Choudhury Home Meds and New Rx's Prescriptions: No Action baclofen 20 mg tablet 60 mg PO TID Qty: 270 6RF lorazepam 1 mg tablet 1 mg PO TID MDD 3 mg Qty: 90 5RF diclofenac sodium [Voltaren Arthritis Pain] 1 % gel 4 g topical QID PRN (Reason: muscle pain) Qty: 100 5RF Rx Instructions: apply to painful muscles sildenafil 100 mg tablet 100 mg PO DAILY PRN (Reason: sexual activity) Qty: 30 3RF Rx Instructions: administer 30 minutes to 4 hours before activity. Call [employer] for credit card number. He knows its self pay mupirocin 2 % ointment 1 applic topical BID Qty: 30 0RF Rx Instructions: apply to scabs on abdomen and around cath site for 7 days nystatin 100,000 unit/gram powder 1 applic topical BID Qty: 60 4RF methenamine hippurate 1 gram tablet 1 g PO TID Qty: 90 6RF Hold Instructions: Home Medication placed on hold at Doctor's office ascorbic acid (vitamin C) [Vitamin C] 500 mg tablet See Rx Instructions .ROUTE .COMPLEX Qty: 112 0RF Dose Instruction: TAKE 1 TABLET BY MOUTH FOUR TIMES A DAY Rx Instructions: TAKE 1 TABLET BY MOUTH FOUR TIMES A DAY fluconazole 150 mg tablet 150 mg PO Q48H Qty: 7 0RF Rx Instructions: yeast urinary tract infection ceftriaxone 2 gram recon soln 2 g IM DAILY Qty: 10 0RF cholecalciferol (vitamin D3) 25 mcg (1,000 unit) Tablet 1,000 units PO DAILY Qty: 30 0RF Phlexy-Vits Powder In Packet 1 packet PO TID Qty: 90 0RF Myrbetriq 25 mg Tablet Extended Release 24 Hr 25 mg PO DAILY Qty: 30 0RF bisacodyl 10 mg Suppository 10 mg AR DAILY PRN PRN (Reason: Constipation) Qty: 10 0RF acetaminophen [Tylenol] 325 mg tablet 650 mg PO Q6H PRN PRN (Reason: fever or pain) Qty: 30 0RF docusate sodium [Colace] 100 mg capsule 100 mg PO TID Qty: 90 0RF multivitamin,tx-minerals Tablet 1 tab PO DAILY Qty: 30 0RF senna 8.6 mg capsule 17.2 mg PO BID Qty: 120 0RF Lactobacillus acidoph-L.bulgar [Floranex] 1 million cell tablet 1 tab PO TID Qty: 90 0RF Mag-Delay 64 mg tablet,delayed release (DR/EC) 128 mg PO BID sulfamethoxazole-trimethoprim [Bactrim DS] 800-160 mg tablet 1 tab PO Q12H Qty: 20 0RF Discharge Instructions Instructions: Urinary Tract Infection in Men (ED) Additional Instructions: Call Dr. Zhu to follow up on your visit today. She will arrange for outpatient IV antibiotics. Medical Decision Making 58yo M quadraplegic post neck injury in 2019 presenting for general malaise. Associated left arm pain headache, moderate, without other new neurological symptoms, chest pain, or shortness of breath. Vital signs and physical exam reassuring on arrival. Not septic. Low suspicion for acute cardiac event, will eval with with EKG/troponin. Not concerned for SAH based on history. Discussed patient at length with Dr. Zhu from palliative care; she reports he has a current urine culture growing proteus susceptible to ceftriaxone and has not yet started antibiotics- she is working on setting up outpatient IV abx for him. Likely infected stone but patient does not want any further interventions for this, general goals of care palliative in nature. Labs ordered and reviewed, CBC with leukocytosis otherwise reassuring, CMP with no actionable abnormalities. EKG with no indication of occlusive OR, troponins negative x 2. UA consistent with UTI. Symptom control with tylenol, IV toradol, IV dilaudid. On reassessment patient feels improved, continues to request discharge home which is reasonable. Discharged home with plan to continue outpatient antibiotics with Dr. Zhu is ordering and will manage. Discharged home, discharge instructions and return precuations were reviewed with patient who verbalized understanding. All questions were answered and he is in full agreement with the plan. Lab Data Lab results reviewed: Yes I reviewed the patient's lab results. Labs: 05/17/23 11:21 Urine - Clean Catch Urine Culture - Pending Laboratory Tests Range/Units 05/17/23 05/17/23 05/17/23 08:00 08:00 08:00 WBC (4.4-10.8) 10^3/uL 15.98 H RBC (4.36-5.78) 10^6/uL 4.66 Hgb (13.5-17.5) g/dL 13.5 Hct (40.0-50.0) % 40.1 MCV (80-95) fL 86 MCH (27.0-33.0) pg 29.0 MCHC (32.0-36.0) % 33.7 RDW (11.8-14.1) % 13.2 Plt Count (130-400) 10^3/uL 330 MPV (8.0-11.0) fL 10.3 Immature Gran % 0.8 Neutrophils % 76.3 Lymphocytes % 15.3 Monocytes % 6.4 Eosinophils % 0.9 Basophils % 0.3 Nucleated RBC % (0.0-0.3) % 0.0 Absolute Neutrophils (1.2-6.7) 10^3/uL 12.19 H Absolute Lymphocytes (1.2-3.4) 10^3/uL 2.44 Absolute Monocytes (0.1-0.8) 10^3/uL 1.02 H Absolute Eosinophils (0.0-0.7) 10^3/uL 0.14 Absolute Basophils (0.0-0.2) 10^3/uL 0.05 VBG pH (7.31-7.41) 7.38 VBG pCO2 (41-51) mmHg 41 VBG pO2 mmHg 41 VBG HCO3 (23-28) mmol/L 24 VBG Total CO2 (24-29) mmol/L 22 L VBG O2 Saturation % 76 VBG Base Excess (-2-3) mmol/L -1 Sodium (136-145) mmol/L 139 Potassium (3.5-5.1) mmol/L 3.9 Chloride (98-107) mmol/L 106 Carbon Dioxide (21.0-32.0) mmol/L 24.3 Anion Gap (3-11) mmol/L 8.7 BUN (7-18) mg/dL 16 Creatinine (0.70-1.30) mg/dL 1.0 Est GFR (CKD-EPI 2020) (mL/min/1.73m2) 88.33 Glucose (74-106) mg/dL 121 H Calcium (8.5-10.1) mg/dL 9.5 Magnesium (1.8-2.4) mg/dL 2.0 Total Bilirubin (0.2-1.0) mg/dL 0.3 AST (15-37) U/L 20 ALT (16-63) U/L 27 Alkaline Phosphatase (46-116) U/L 78 Troponin I (<or=60) ng/L < 50 Total Protein (6.4-8.2) g/dL 7.5 Albumin (3.4-5.0) g/dL 3.5 Urine Color (Yellow) Urine Clarity (Clear) Urine pH (5-8) Ur Specific Forgan (1.005-1.025) Urine Protein (Negative) mg/dL Urine Ketones (Negative) mg/dL Urine Blood (Negative) Urine Nitrite (Negative) Urine Bilirubin (Negative) Urine Urobilinogen (Up to 0.2) mg/dL Ur Leukocyte Esterase (Negative) Urine RBC (0-2) HPF Urine WBC (0-5) HPF Ur Epithelial Cells (Negative) HPF Urine Crystals (Negative) HPF Urine Bacteria (Negative) HPF Urine Casts (Negative) LPF Urine Mucus (Negative) Ur Culture Indicated? Urine Glucose (Negative) mg/dL Range/Units 05/17/23 05/17/23 11:02 11:21 WBC (4.4-10.8) 10^3/uL RBC (4.36-5.78) 10^6/uL Hgb (13.5-17.5) g/dL Hct (40.0-50.0) % MCV (80-95) fL MCH (27.0-33.0) pg MCHC (32.0-36.0) % RDW (11.8-14.1) % Plt Count (130-400) 10^3/uL MPV (8.0-11.0) fL Immature Gran % Neutrophils % Lymphocytes % Monocytes % Eosinophils % Basophils % Nucleated RBC % (0.0-0.3) % Absolute Neutrophils (1.2-6.7) 10^3/uL Absolute Lymphocytes (1.2-3.4) 10^3/uL Absolute Monocytes (0.1-0.8) 10^3/uL Absolute Eosinophils (0.0-0.7) 10^3/uL Absolute Basophils (0.0-0.2) 10^3/uL VBG pH (7.31-7.41) VBG pCO2 (41-51) mmHg VBG pO2 mmHg VBG HCO3 (23-28) mmol/L VBG Total CO2 (24-29) mmol/L VBG O2 Saturation % VBG Base Excess (-2-3) mmol/L Sodium (136-145) mmol/L Potassium (3.5-5.1) mmol/L Chloride (98-107) mmol/L Carbon Dioxide (21.0-32.0) mmol/L Anion Gap (3-11) mmol/L BUN (7-18) mg/dL Creatinine (0.70-1.30) mg/dL Est GFR (CKD-EPI 2020) (mL/min/1.73m2) Glucose (74-106) mg/dL Calcium (8.5-10.1) mg/dL Magnesium (1.8-2.4) mg/dL Total Bilirubin (0.2-1.0) mg/dL AST (15-37) U/L ALT (16-63) U/L Alkaline Phosphatase (46-116) U/L Troponin I (<or=60) ng/L < 50 Total Protein (6.4-8.2) g/dL Albumin (3.4-5.0) g/dL Urine Color (Yellow) Yellow Urine Clarity (Clear) Cloudy Urine pH (5-8) >= 9.0 H Ur Specific Forgan (1.005-1.025) 1.010 Urine Protein (Negative) mg/dL 100 H Urine Ketones (Negative) mg/dL Negative Urine Blood (Negative) Large H Urine Nitrite (Negative) Positive H Urine Bilirubin (Negative) Negative Urine Urobilinogen (Up to 0.2) mg/dL 0.2 Ur Leukocyte Esterase (Negative) Large H Urine RBC (0-2) HPF 10-20 H Urine WBC (0-5) HPF 10-20 H Ur Epithelial Cells (Negative) HPF Negative Urine Crystals (Negative) HPF Moderate Triple Phos Urine Bacteria (Negative) HPF Many Urine Casts (Negative) LPF Negative Urine Mucus (Negative) Negative Ur Culture Indicated? C&S Done As Ordered Urine Glucose (Negative) mg/dL Negative HPI General Date/Time Provider Initiated Documentation: 05/17/23 07:51 . Limitations to Documentation: no limitations . Information obtained by: patient . HPI Narrative: 58yo M quadraplegic post neck injury in 2019 presenting for general malaise. Reports feeling bad, also 4/10 head pain and 4/10 left arm and neck pain. No numbness or tingling, pain in both head and arm has been gradual in onset over the past several days. General malaise has been present for the past three days and is worsening. Denies fevers, lightheadedness, cough, chest pain, shortness of breath, or other concerns. Requesting to go home on initial eval, reports not wanting to be in the hospital. Follows with Dr. Zhu for palliative care; discussed with Dr. Zhu over the phone and she reports that patient has urine culture from 05/15 which is growing proteus sensitive to ceftriaxone; her plan was to start patient on IV ceftriaxone outpatient. He has a history of kidney stones and does not want further intervention/lithotripsy/surgical procedures for these, general care plan is medical treatment and palliative in nature. Related Data Home Medications Medication Instructions Recorded Confirmed Lactobacillus acidoph-L.bulgaricus 1 tab PO TID #90 tabs 01/08/22 05/17/23 1 million cell tablet (Floranex) acetaminophen 325 mg tablet 650 mg PO Q6H PRN PRN fever or 01/08/22 05/17/23 (Tylenol) pain #30 tabs bisacodyl 10 mg rectal suppository 10 mg AR DAILY PRN PRN 01/08/22 05/17/23 Constipation #10 ea cholecalciferol (vitamin D3) 25 1,000 units PO DAILY #30 tabs 01/08/22 05/17/23 mcg (1,000 unit) tablet docusate sodium 100 mg capsule 100 mg PO TID #90 caps 01/08/22 05/17/23 (Colace) mirabegron 25 mg tablet,extended 25 mg PO DAILY #30 tabs 01/08/22 05/17/23 release 24 hr (Myrbetriq) multivitamin,tx-minerals 1 tab PO DAILY #30 tabs 01/08/22 05/17/23 nutritional supplements 1 packet PO TID #90 ea 01/08/22 05/17/23 (Phlexy-Vits) sennosides 8.6 mg capsule (senna) 17.2 mg PO BID #120 caps 01/08/22 05/17/23 magnesium chloride 64 mg 128 mg PO BID 02/24/22 05/17/23 (magnesium chloride) tablet,delayed release (Mag-Delay) nystatin 100,000 unit/gram topical 1 applic topical BID #60 grams 09/29/22 05/17/23 powder methenamine hippurate 1 gram tablet 1 g PO TID recurrent UTI #90 tabs 12/01/22 05/17/23 baclofen 20 mg tablet 60 mg PO TID #270 tabs 02/27/23 05/17/23 diclofenac sodium 1 % topical gel 4 g topical QID PRN muscle pain 02/27/23 05/17/23 (Voltaren Arthritis Pain) #100 grams lorazepam 1 mg tablet 1 mg PO TID #90 tabs 02/27/23 05/17/23 mupirocin 2 % topical ointment 1 applic topical BID #30 grams 03/02/23 05/17/23 ascorbic acid (vitamin C) 500 mg See Rx Instructions .Route 03/16/23 05/17/23 tablet (Vitamin C) .COMPLEX #112 tabs fluconazole 150 mg tablet 150 mg PO Q48H #7 tabs 05/03/23 05/17/23 sildenafil 100 mg tablet 100 mg PO DAILY PRN sexual 05/04/23 05/17/23 activity #30 tabs sulfamethoxazole 800 1 tab PO Q12H #20 tabs 05/10/23 05/17/23 mg-trimethoprim 160 mg tablet (Bactrim DS) ceftriaxone 2 gram solution for 2 g IM DAILY #10 ea 05/15/23 05/17/23 injection Previous Rx's Medication Instructions Recorded Lactobacillus acidoph-L.bulgaricus 1 tab PO TID #90 tabs 01/08/22 1 million cell tablet (Floranex) acetaminophen 325 mg tablet 650 mg PO Q6H PRN PRN fever or 01/08/22 (Tylenol) pain #30 tabs bisacodyl 10 mg rectal suppository 10 mg AR DAILY PRN PRN 01/08/22 Constipation #10 ea cholecalciferol (vitamin D3) 25 1,000 units PO DAILY #30 tabs 01/08/22 mcg (1,000 unit) tablet docusate sodium 100 mg capsule 100 mg PO TID #90 caps 01/08/22 (Colace) mirabegron 25 mg tablet,extended 25 mg PO DAILY #30 tabs 01/08/22 release 24 hr (Myrbetriq) multivitamin,tx-minerals 1 tab PO DAILY #30 tabs 01/08/22 nutritional supplements 1 packet PO TID #90 ea 01/08/22 (Phlexy-Vits) sennosides 8.6 mg capsule (senna) 17.2 mg PO BID #120 caps 01/08/22 nystatin 100,000 unit/gram topical 1 applic topical BID #60 grams 09/29/22 powder methenamine hippurate 1 gram tablet 1 g PO TID recurrent UTI #90 tabs 12/01/22 baclofen 20 mg tablet 60 mg PO TID #270 tabs 02/27/23 diclofenac sodium 1 % topical gel 4 g topical QID PRN muscle pain 02/27/23 (Voltaren Arthritis Pain) #100 grams lorazepam 1 mg tablet 1 mg PO TID #90 tabs 02/27/23 mupirocin 2 % topical ointment 1 applic topical BID #30 grams 03/02/23 ascorbic acid (vitamin C) 500 mg See Rx Instructions .Route 03/16/23 tablet (Vitamin C) .COMPLEX #112 tabs fluconazole 150 mg tablet 150 mg PO Q48H #7 tabs 05/03/23 sildenafil 100 mg tablet 100 mg PO DAILY PRN sexual 05/04/23 activity #30 tabs sulfamethoxazole 800 1 tab PO Q12H #20 tabs 05/10/23 mg-trimethoprim 160 mg tablet (Bactrim DS) ceftriaxone 2 gram solution for 2 g IM DAILY #10 ea 05/15/23 injection Allergies Allergy/AdvReac Type Severity Reaction Status Date / Time No Known Allergies Allergy Verified 05/17/23 07:31 General Stated Complaint: GenMedical LU: 3 Review of Systems Narrative: see HPI PFSH All Active Problems (Updated 05/17/23 @ 12:19 by Lucie Choudhury MD) Acute dyspnea (Acute) Urinary tract infection (Acute) Anxiety disorder (Acute) History of UTI (Acute) Bladder stones (Acute) Palliative care patient (Acute) Neck pain (Acute) Decubitus skin ulcer (Acute) Insomnia (Acute) Constipation due to neurogenic bowel (Acute) Chronic recurrent multifocal osteomyelitis (Chronic) Acute osteomyelitis of sacrum (Chronic) Major depressive disorder (Chronic) Neurogenic bladder (Chronic) Quadriplegia (Chronic) Medical History Acute embolism and thrombosis of deep vein of right lower extremity DIAMOND (acute kidney injury) Aspiration into airway Bronchospasm C. difficile colitis Constipation Decubitus ulcer of buttock, stage 4 Dislocation of C6/C7 cervical vertebrae DNR (do not resuscitate) DVT (deep venous thrombosis) DVT prophylaxis Encounter for wound care Fall down embankment Fusion of spine H/O deep venous thrombosis Hypokalemia Hypotension Ileus Insomnia Iron deficiency anemia Large bowel obstruction Low magnesium level Malnutrition following gastrointestinal surgery Muscle spasm Neurogenic bowel Open wound of abdominal wall Physician orders for life-sustaining treatment (POLST) form indicates patient wish for [id number]-kan-mpjiwougsuc status Right arm pain Visit for wound check Weight gain Surgical History History of infusaport central venous catheter insertion S/P colostomy Suprapubic catheter Social History Smoking/Tobacco Use Status: Never Smoking risk assessment performed?: Yes Alcohol Intake: current Alcohol Intake frequency: holidays/special occasions only Drug use: Daily Substance use type: marijuana Do you feel safe at home: Yes Do you feel safe in your relationship?: Yes Additional Social history: unable to assess privately Exam Narrative Exam Narrative: General: Alert, well nourished, in no acute distress. Head: Normocephalic, atraumatic Neck: Trachea midline, Neck supple. ENT: MMM. No oropharygeal lesions or exudate. Cardiac: RRR, no murmurs appreciated Resp: No respiratory distress. CTAB. Abd: Soft, non-distended, nontender : No suprapubic tenderness. Extremities: No deformities. No peripheral edema. Neurologic: GCS 15. Course Vital Signs Vital signs: Vital Signs Temperature 36.8 C 05/17/23 07:24 Pulse 78 05/17/23 07:24 Respiratory Rate 18 05/17/23 07:24 Blood Pressure 130/82 05/17/23 07:24 Pulse Oximetry 96 05/17/23 07:24 Temperature 36.8 C 05/17/23 07:24 Temperature Source Skin 05/17/23 07:24 Pulse 78 05/17/23 07:24 Respiratory Rate 18 05/17/23 07:42 Respiratory Effort Normal 05/17/23 07:42 Respiratory Depth Normal 05/17/23 07:42 Respiratory Pattern Normal 05/17/23 07:42 Blood Pressure 130/82 05/17/23 07:24 Blood Pressure Position Sitting 05/17/23 07:24 Pulse Oximetry 96 05/17/23 07:24 Oxygen Delivery Method Room Air 05/17/23 07:24 Oxygen Flow Rate 0 05/17/23 07:24 Pain Level 5 05/17/23 07:24 Lab/Test Results Lab/Test Results: Laboratory Tests Range/Units 05/17/23 05/17/23 05/17/23 08:00 08:00 08:00 WBC (4.4-10.8) 10^3/uL 15.98 H RBC (4.36-5.78) 10^6/uL 4.66 Hgb (13.5-17.5) g/dL 13.5 Hct (40.0-50.0) % 40.1 MCV (80-95) fL 86 MCH (27.0-33.0) pg 29.0 MCHC (32.0-36.0) % 33.7 RDW (11.8-14.1) % 13.2 Plt Count (130-400) 10^3/uL 330 MPV (8.0-11.0) fL 10.3 Immature Gran % 0.8 Neutrophils % 76.3 Lymphocytes % 15.3 Monocytes % 6.4 Eosinophils % 0.9 Basophils % 0.3 Nucleated RBC % (0.0-0.3) % 0.0 Absolute Neutrophils (1.2-6.7) 10^3/uL 12.19 H Absolute Lymphocytes (1.2-3.4) 10^3/uL 2.44 Absolute Monocytes (0.1-0.8) 10^3/uL 1.02 H Absolute Eosinophils (0.0-0.7) 10^3/uL 0.14 Absolute Basophils (0.0-0.2) 10^3/uL 0.05 VBG pH (7.31-7.41) 7.38 VBG pCO2 (41-51) mmHg 41 VBG pO2 mmHg 41 VBG HCO3 (23-28) mmol/L 24 VBG Total CO2 (24-29) mmol/L 22 L VBG O2 Saturation % 76 VBG Base Excess (-2-3) mmol/L -1 Sodium (136-145) mmol/L 139 Potassium (3.5-5.1) mmol/L 3.9 Chloride (98-107) mmol/L 106 Carbon Dioxide (21.0-32.0) mmol/L 24.3 Anion Gap (3-11) mmol/L 8.7 BUN (7-18) mg/dL 16 Creatinine (0.70-1.30) mg/dL 1.0 Est GFR (CKD-EPI 2020) (mL/min/1.73m2) 88.33 Glucose (74-106) mg/dL 121 H Calcium (8.5-10.1) mg/dL 9.5 Magnesium (1.8-2.4) mg/dL 2.0 Total Bilirubin (0.2-1.0) mg/dL 0.3 AST (15-37) U/L 20 ALT (16-63) U/L 27 Alkaline Phosphatase (46-116) U/L 78 Troponin I (<or=60) ng/L < 50 Total Protein (6.4-8.2) g/dL 7.5 Albumin (3.4-5.0) g/dL 3.5
--- NOTE | 2023-05-17 10:13 | DI.VRAD_ITS ---
PROCEDURE INFORMATION: Exam: XR Chest Exam date and time: 05/17/2023 9:15 AM Age: 58 years old Clinical indication: Patient HX: Weakness, AMS TECHNIQUE: Imaging protocol: Radiologic exam of the chest. Views: 1 view. COMPARISON: CR XR PORTABLE CHEST AP 05/09/2023 11:46 PM FINDINGS: Tubes, catheters and devices: Central access port on the left terminates in the SVC. Lungs: The lungs are mildly hyperexpanded but clear. Pleural spaces: No pneumothorax or effusion. Heart/Mediastinum: Unremarkable. No cardiomegaly. Bones/joints: Postoperative changes in the cervicothoracic spine. No acute fracture. IMPRESSION: No acute abnormality of the chest. Dictated and Authenticated by: Jose Palacios MD. Ordering:KELLEY Herring MD
[2023-05-17 11:25] LABS: Troponin I < 50 ng/L (<or=60)
[2023-05-17] MEDS: cefTRIAXone 2 GM/50 ML BAG IVPB (11:25)
[2023-05-17] MEDS: Acetaminophen 500 MG TAB 1000 MG PO (11:26)
[2023-05-17] MEDS: Ketorolac 15 MG/ML VIAL IVP (11:26)
[2023-05-17] MEDS: Normal Saline 1,000 ML 1000 ML IV (11:26)
[2023-05-17] MEDS: HYDROmorphone 2 MG/ML SYR 1 MG IVP (11:26)
[2023-05-17 11:31] LABS: Bilirubin Negative (Negative); Blood Large (Negative); Clarity Cloudy (Clear); Glucose Negative (Negative); Ketones Negative (Negative); Leukocyte Esterase Large (Negative); Nitrite Positive (Negative); Urobilinogen 0.2 mg/dL (Up to 0.2); pH >= 9.0 (5-8)
[2023-05-17 11:40] LABS: Bacteria Many HPF (Negative); Epithelial Cells Negative HPF (Negative)
[2023-05-17 11:41] LABS: C & S Indicated? C&S Done As Ordered; Casts Negative LPF (Negative); Crystals Moderate Triple Phos HPF (Negative); Mucus Negative (Negative)
[2023-05-17 12:06] VITALS: BP 163/90; PULSE 85; RESP 18; O2SAT 97
--- NOTE | 2023-05-17 12:10 | NUR.NOTE ---
Nursing Note:pts mother states home health would like to speak with this nurse to discuss pt, attempted to call nurse with no answer. home health nurse states being concerned for bowel obtruction per pts mom, ostomy bag has fecal matter accumulating that is semiformed.
== END 2023-05-17 15:21 | disposition home or self-care (01) ==
PROVIDERS: Emergency Medicine; Emergency Provider Student in an Organized Health Care Education/Training Program; PCP Family Medicine
DX: N39.0 Urinary tract infection, site not specified (principal); N31.9 Neuromuscular dysfunction of bladder, unspecified; Z51.5 Encounter for palliative care; R20.2 Paresthesia of skin; R20.0 Anesthesia of skin; G82.50 Quadriplegia, unspecified; Z86.718 Personal history of other venous thrombosis and embolism; Z66 Do not resuscitate; Z93.3 Colostomy status; Z87.442 Personal history of urinary calculi
CPT/HCPCS: 36415; 70496; 70498; 80053; 80307; 82805; 87077; 87186; 93005; 96361; 96365; 96375; 99285; 71045; 81003; 81015; 83735; 84484; 85025; 87086; 93010; 99284; J0131; J1170; J1885; J3490

== ENCOUNTER 2023-05-17 19:52 | Emergency (ER) | payer MEDICARE, SELFPAY ==
[2023-05-17] VITALS (24 sets, daily range): BP systolic 96–150; BP diastolic 61–85; PULSE 53–80; RESP 6–28; TEMP 37.1; O2SAT 88–98
--- NOTE | 2023-05-17 20:00 | RT.EKG_ITS ---
APPROVED REPORT Exam: Resting ECG Reason for Exam: syncope Patient Location: E HR:66 bpm ECG Measurements Heart Rate 66 AXIS NM 183 P 80 QRSd 108 QRS -87 QT 413 T 74 QTc 432 Conclusion Sinus rhythm...normal P axis, V-rate 60- [address] elevation, anterior leads...ST >0.15mV in V1-V4 No change vs earlier today
[2023-05-17] MEDS: Normal Saline 1,000 ML 1000 ML IV (21:09)
[2023-05-17 21:11] LABS: Abs Immature Grans 0.07 10^3/uL (0.0-0.06); Absolute Basophil Count 0.04 10^3/uL (0.0-0.2); Absolute Eosinophil Count 0.21 10^3/uL (0.0-0.7); Absolute Lymphocyte Count 2.05 10^3/uL (1.2-3.4); Absolute Monocyte Count 0.73 10^3/uL (0.1-0.8); Basophils % 0.4; HCT 38.6 % (40.0-50.0); Immature Grans % 0.7; Lymphocytes % 19.9; MCH 29.3 pg (27.0-33.0); MCHC 33.7 % (32.0-36.0); MCV 87 fL (80-95); MPV 10.7 fL (8.0-11.0); Monocytes % 7.1; Neutrophils % 69.9; Platelet Count 313 10^3/uL (130-400); RBC 4.44 10^6/uL (4.36-5.78); RDW 13.5 % (11.8-14.1)
[2023-05-17] MEDS: ACETAMINOPHEN 1,000 MG/100 ML BTL 400 MG IVPB (21:12)
[2023-05-17 21:29] LABS: ALT 24 U/L (16-63); AST 20 U/L (15-37); Albumin 3.2 g/dL (3.4-5.0); Alkaline Phosphatase 75 U/L (46-116); BUN 23 mg/dL (7-18); Bilirubin, Total 0.2 mg/dL (0.2-1.0); CREATININE 1.6 mg/dL (0.70-1.30); Chloride 106 mmol/L (98-107); Estimated GFR 50.26 (mL/min/1.73m2); Glucose 118 mg/dL (74-106); Potassium 4.6 mmol/L (3.5-5.1); Sodium 139 mmol/L (136-145); Total Protein 7.2 g/dL (6.4-8.2); Troponin I < 50 ng/L (<or=60)
--- NOTE | 2023-05-17 22:01 | ED.GENADUL_ITS ---
Discharge Plan Disposition Patient Disposition: Home Condition: Stable Discharge Details Clinical Impression: Alteration in vision Primary Care Provider: Genevieve Baez ED Provider: Nevaeh Ivey Home Meds and New Rx's Prescriptions: Continued baclofen 20 mg tablet 60 mg PO TID Qty: 270 6RF lorazepam 1 mg tablet 1 mg PO TID MDD 3 mg Qty: 90 5RF diclofenac sodium [Voltaren Arthritis Pain] 1 % gel 4 g topical QID PRN (Reason: muscle pain) Qty: 100 5RF Rx Instructions: apply to painful muscles sildenafil 100 mg tablet 100 mg PO DAILY PRN (Reason: sexual activity) Qty: 30 3RF Rx Instructions: administer 30 minutes to 4 hours before activity. Call [employer] for credit card number. He knows its self pay mupirocin 2 % ointment 1 applic topical BID Qty: 30 0RF Rx Instructions: apply to scabs on abdomen and around cath site for 7 days nystatin 100,000 unit/gram powder 1 applic topical BID Qty: 60 4RF methenamine hippurate 1 gram tablet 1 g PO TID Qty: 90 6RF Hold Instructions: Home Medication placed on hold at Doctor's office ascorbic acid (vitamin C) [Vitamin C] 500 mg tablet See Rx Instructions .ROUTE .COMPLEX Qty: 112 0RF Dose Instruction: TAKE 1 TABLET BY MOUTH FOUR TIMES A DAY Rx Instructions: TAKE 1 TABLET BY MOUTH FOUR TIMES A DAY fluconazole 150 mg tablet 150 mg PO Q48H Qty: 7 0RF Rx Instructions: yeast urinary tract infection ceftriaxone 2 gram recon soln 2 g IM DAILY Qty: 10 0RF cholecalciferol (vitamin D3) 25 mcg (1,000 unit) Tablet 1,000 units PO DAILY Qty: 30 0RF Phlexy-Vits Powder In Packet 1 packet PO TID Qty: 90 0RF Myrbetriq 25 mg Tablet Extended Release 24 Hr 25 mg PO DAILY Qty: 30 0RF bisacodyl 10 mg Suppository 10 mg NV DAILY PRN PRN (Reason: Constipation) Qty: 10 0RF acetaminophen [Tylenol] 325 mg tablet 650 mg PO Q6H PRN PRN (Reason: fever or pain) Qty: 30 0RF docusate sodium [Colace] 100 mg capsule 100 mg PO TID Qty: 90 0RF multivitamin,tx-minerals Tablet 1 tab PO DAILY Qty: 30 0RF senna 8.6 mg capsule 17.2 mg PO BID Qty: 120 0RF Lactobacillus acidoph-L.bulgar [Floranex] 1 million cell tablet 1 tab PO TID Qty: 90 0RF Mag-Delay 64 mg tablet,delayed release (DR/EC) 128 mg PO BID sulfamethoxazole-trimethoprim [Bactrim DS] 800-160 mg tablet 1 tab PO Q12H Qty: 20 0RF Discharge Instructions Instructions: Anxiety (ED) Additional Instructions: Please continue to take your Ativan as needed for anxiety. Make an appointment with your eye doctor or the eye doctor as your choice regarding the changes in your vision that resolved. Your head CT and head and neck CTA tonight were negative. Recheck with Dr. Zhu this week. Return to ED for any questions or concerns. Discharge Data Discharge Date/Time-TO BE ENTERED AT DEPARTURE: 05/18/23 02:55 Medical Decision Making Patient could not tell me exactly how much of a work-up he wanted (palliative ccare); he has refused many things in the past. I called his physician Dr. Zhu. Last fall he said he wanted medically assisted but he did not meet criteria for this. She had extensive discussion with him and told him that if he did not treat a urinary tract infection he would likely get septic and then could be a candidate for being made comfortable to . He was not ready for this. She did confirm that he has refused treatment for the kidney stone and he has continued to get infected with Proteus. She is setting him up for IM ceftriaxone tomorrow if he is discharged. We talked about the weird episodes that he has where he seems to become altered and falls asleep, then startles and wakes up. This was told to me by his friend Nevaeh who Dr. Zhu says has been a good friend to him. I asked her if his pupils had ever been asymmetric and she says no. She does concur with doing a head CT. I will do a CTA head and neck as he has neck pain and certainly has had trauma before. When I told her about him requesting IV Dilaudid she said this was pretty unusual for him. He is taking Ativan for anxiety although she had planned to wean him off of this. Did VBG on him which is normal. In addition to the Ativan the patient does vape a lot including marijuana. We decided urine drug screen would be a good idea. His urine was certainly positive this morning although he again got the 2 g of IM ceftriaxone. UDS was positive for THC and opiates. He got IV Dilaudid in the ED this morning. Interestingly his urine drug screen was negative for benzos. CT and CTA showed no acute disease and no significant stenosis. I discussed with the patient whether he wanted me to admit him or go home. He typically does not want admission and did say that he wanted to go home. I asked him to follow-up with his PCP and possibly his eye doctor. Medical Records Medical records reviewed: Yes I reviewed the patient's medical records. Imaging Data Radiologic Study: Imaging: CT Scan Radiologist's impression: Head CT without shows no acute intracranial findings. CTA head and neck shows no evidence of stroke or significant stenosis. Lab Data Lab results reviewed: Yes I reviewed the patient's lab results. ECG Data Attestation: I personally reviewed and interpreted this ECG (s) as follows: (NSR at 65, borderline ST elevation in V2 and V3 unchanged from prior.) Prior ECG tracings: available for review HPI General Date/Time Provider Initiated Documentation: 05/17/23 20:08 . HPI Narrative: This 58-year-old male patient presents after having some episodes of vision blackouts at home. Patient was seen here earlier today for head, neck, and arm pain. These are evidently somewhat chronic for him. He had a work-up including EKG and labs and wanted to go home. He says on the ambulance ride home his vision blacked out. He has had 2 episodes since then. He says he was afraid and decided to come back in. He does take Ativan at home for anxiety and took a dose when he got home from the ED. He is on palliative care with Dr. Zhu. Patient reports that he does not feel pain or any sensation from his chest down as he is a quadraplegic. Reportedly he has a kidney stone and does not want anything done with this. He has recurrent urinary tract infections growing Proteus. He did have 2 g of IM ceftriaxone in the ED earlier today and Dr. Zhu is setting up this at home for him starting tomorrow. He reportedly gets goofy when he is infected. On arrival in the ED the patient was alert and conversing for me without difficulty. Due to the blackout spells I went back in to do what I could for a neurologic exam. He was much more somnolent and falling asleep in front of me. His friend Nevaeh who is in there with him says that he gets spells like this where he falls asleep and then gasps and wakes up again. It is unclear whether he could have YARIEL. He is not complaining of headache at this time but says that his neck hurts and he needs to be repositioned. He also said I needed to give him something for pain. He re ported that IV Dilaudid worked. I told him that his doctors could give him oral Dilaudid to take at home and he said that he had received IV in the ER. The patient's blood pressure was initially low in the ED and he told me this is not unusual for him. He says it is all over the place and goes up and down. Related Data Home Medications Medication Instructions Recorded Confirmed Lactobacillus acidoph-L.bulgaricus 1 tab PO TID #90 tabs 01/08/22 05/17/23 1 million cell tablet (Floranex) acetaminophen 325 mg tablet 650 mg PO Q6H PRN PRN fever or 01/08/22 05/17/23 (Tylenol) pain #30 tabs bisacodyl 10 mg rectal suppository 10 mg NV DAILY PRN PRN 01/08/22 05/17/23 Constipation #10 ea cholecalciferol (vitamin D3) 25 1,000 units PO DAILY #30 tabs 01/08/22 05/17/23 mcg (1,000 unit) tablet docusate sodium 100 mg capsule 100 mg PO TID #90 caps 01/08/22 05/17/23 (Colace) mirabegron 25 mg tablet,extended 25 mg PO DAILY #30 tabs 01/08/22 05/17/23 release 24 hr (Myrbetriq) multivitamin,tx-minerals 1 tab PO DAILY #30 tabs 01/08/22 05/17/23 nutritional supplements 1 packet PO TID #90 ea 01/08/22 05/17/23 (Phlexy-Vits) sennosides 8.6 mg capsule (senna) 17.2 mg PO BID #120 caps 01/08/22 05/17/23 magnesium chloride 64 mg 128 mg PO BID 02/24/22 05/17/23 (magnesium chloride) tablet,delayed release (Mag-Delay) nystatin 100,000 unit/gram topical 1 applic topical BID #60 grams 09/29/22 05/17/23 powder methenamine hippurate 1 gram tablet 1 g PO TID recurrent UTI #90 tabs 12/01/22 05/17/23 baclofen 20 mg tablet 60 mg PO TID #270 tabs 02/27/23 05/17/23 diclofenac sodium 1 % topical gel 4 g topical QID PRN muscle pain 02/27/23 05/17/23 (Voltaren Arthritis Pain) #100 grams lorazepam 1 mg tablet 1 mg PO TID #90 tabs 02/27/23 05/17/23 mupirocin 2 % topical ointment 1 applic topical BID #30 grams 03/02/23 05/17/23 ascorbic acid (vitamin C) 500 mg See Rx Instructions .Route 03/16/23 05/17/23 tablet (Vitamin C) .COMPLEX #112 tabs fluconazole 150 mg tablet 150 mg PO Q48H #7 tabs 05/03/23 05/17/23 sildenafil 100 mg tablet 100 mg PO DAILY PRN sexual 05/04/23 05/17/23 activity #30 tabs sulfamethoxazole 800 1 tab PO Q12H #20 tabs 05/10/23 05/17/23 mg-trimethoprim 160 mg tablet (Bactrim DS) ceftriaxone 2 gram solution for 2 g IM DAILY #10 ea 05/15/23 05/17/23 injection Previous Rx's Medication Instructions Recorded Lactobacillus acidoph-L.bulgaricus 1 tab PO TID #90 tabs 01/08/22 1 million cell tablet (Floranex) acetaminophen 325 mg tablet 650 mg PO Q6H PRN PRN fever or 01/08/22 (Tylenol) pain #30 tabs bisacodyl 10 mg rectal suppository 10 mg NV DAILY PRN PRN 01/08/22 Constipation #10 ea cholecalciferol (vitamin D3) 25 1,000 units PO DAILY #30 tabs 01/08/22 mcg (1,000 unit) tablet docusate sodium 100 mg capsule 100 mg PO TID #90 caps 01/08/22 (Colace) mirabegron 25 mg tablet,extended 25 mg PO DAILY #30 tabs 01/08/22 release 24 hr (Myrbetriq) multivitamin,tx-minerals 1 tab PO DAILY #30 tabs 01/08/22 nutritional supplements 1 packet PO TID #90 ea 01/08/22 (Phlexy-Vits) sennosides 8.6 mg capsule (senna) 17.2 mg PO BID #120 caps 01/08/22 nystatin 100,000 unit/gram topical 1 applic topical BID #60 grams 09/29/22 powder methenamine hippurate 1 gram tablet 1 g PO TID recurrent UTI #90 tabs 12/01/22 baclofen 20 mg tablet 60 mg PO TID #270 tabs 02/27/23 diclofenac sodium 1 % topical gel 4 g topical QID PRN muscle pain 02/27/23 (Voltaren Arthritis Pain) #100 grams lorazepam 1 mg tablet 1 mg PO TID #90 tabs 02/27/23 mupirocin 2 % topical ointment 1 applic topical BID #30 grams 03/02/23 ascorbic acid (vitamin C) 500 mg See Rx Instructions .Route 03/16/23 tablet (Vitamin C) .COMPLEX #112 tabs fluconazole 150 mg tablet 150 mg PO Q48H #7 tabs 05/03/23 sildenafil 100 mg tablet 100 mg PO DAILY PRN sexual 05/04/23 activity #30 tabs sulfamethoxazole 800 1 tab PO Q12H #20 tabs 05/10/23 mg-trimethoprim 160 mg tablet (Bactrim DS) ceftriaxone 2 gram solution for 2 g IM DAILY #10 ea 05/15/23 injection Allergies Allergy/AdvReac Type Severity Reaction Status Date / Time No Known Allergies Allergy Verified 05/17/23 07:31 General Stated Complaint: [id number] LU: 3 Review of Systems All systems reviewed & are unremarkable except as noted in HPI and below (No sensation from chest down) Constitutional Constitutional: Reports as per HPI, Denies chills, Denies fever(s) and Denies headache(s) Eyes Eyes: Denies blurry vision and Reports other (no redness) ENT Ears, Nose, Mouth, and Throat: Denies dizziness, Denies otalgia, Denies headache(s), Denies nasal congestion, Denies nasal discharge, Denies neck pain and Denies odynophagia Cardiovascular Cardiovascular: Denies chest pain, Denies palpitations and Denies dyspnea Respiratory Respiratory: Denies cough and Denies dyspnea Gastrointestinal Gastrointestinal: Denies abdominal pain, Denies diarrhea, Denies nausea, Denies odynophagia and Denies vomiting Genitourinary Genitourinary: Denies difficulty urinating and Denies dysuria Musculoskeletal Musculoskeletal: Denies myalgias, Denies muscle weakness, Denies neck pain and Denies numbness Integumentary/Breasts Skin/Breast: Denies erythema and Denies rash Neurologic Neurologic: Denies dizziness, Denies headache(s) and Denies numbness Endocrine Endocrine: Denies palpitations PFSH All Active Problems (Updated 05/18/23 @ 00:27 by Nevaeh Ivey MD) Acute dyspnea (Acute) Urinary tract infection (Acute) Alteration in vision (Acute) Anxiety disorder (Acute) History of UTI (Acute) Bladder stones (Acute) Palliative care patient (Acute) Neck pain (Acute) Decubitus skin ulcer (Acute) Insomnia (Acute) Constipation due to neurogenic bowel (Acute) Chronic recurrent multifocal osteomyelitis (Chronic) Acute osteomyelitis of sacrum (Chronic) Major depressive disorder (Chronic) Neurogenic bladder (Chronic) Quadriplegia (Chronic) Medical History Acute embolism and thrombosis of deep vein of right lower extremity DIAMOND (acute kidney injury) Aspiration into airway Bronchospasm C. difficile colitis Constipation Decubitus ulcer of buttock, stage 4 Dislocation of C6/C7 cervical vertebrae DNR (do not resuscitate) DVT (deep venous thrombosis) DVT prophylaxis Encounter for wound care Fall down embankment Fusion of spine H/O deep venous thrombosis Hypokalemia Hypotension Ileus Insomnia Iron deficiency anemia Large bowel obstruction Low magnesium level Malnutrition following gastrointestinal surgery Muscle spasm Neurogenic bowel Open wound of abdominal wall Physician orders for life-sustaining treatment (POLST) form indicates patient wish for [id number] status Right arm pain Visit for wound check Weight gain Surgical History History of infusaport central venous catheter insertion S/P colostomy Suprapubic catheter Social History Smoking/Tobacco Use Status: Never Smoking risk assessment performed?: Yes Alcohol Intake: current Alcohol Intake frequency: holidays/special occasions only Drug use: Daily Substance use type: marijuana Do you feel safe at home: Yes Do you feel safe in your relationship?: Yes Additional Social history: Rents room, has assistance at home. Exam Const General: no acute distress, well developed, well groomed and not in acute distress Nutritional Appearance: well nourished Orientation: alert and oriented x3 HENMT Head: normocephalic and atraumatic Ears: external ears normal Face and sinus: normal facial exam Mouth: oropharynx normal and moist mucous membranes Eyes Conjunctivae: conjunctivae normal Pupils: irregular (R pupil bigger than L, both reactive) EOM: EOM intact bilaterally Neck Neck: full ROM and supple Chest Chest: normal inspection of the chest Resp Effort & Inspection: normal respiratory effort Auscultation: clear to auscultation bilaterally Cardio Rate: regular rate Rhythm: regular rhythm Heart Sounds: no murmurs and no rubs GI Inspection: normal to inspection Palpation: soft, nontender and other (non distended) Auscultation: normal bowel sounds General: other (pereyra site CDI) Skin General skin exam: no rashes or lesions noted and other (pink, warm, dry) Neuro General: patient alert, patient awake and patient oriented x3 Cranial Nerves: CN's II-XI intact bilaterally (nl facial movement and sensation (face), good shoulder strength, EOM I) Speech: speech normal Motor: other (Able to shrug shoulders) Sensory Exam: sensory deficits noted ( Patient has no sensation from chest down; baseline) Coordination: other (Unable to perform these due to quadriplegia) Extrem General: normal to inspection, full ROM and pedal edema present Psych Mental Status: mental status grossly normal Speech and Movement: speech and movement normal Affect: normal affect Course Vital Signs Vital signs: Vital Signs Temperature 37.1 C 05/17/23 20:02 Pulse 63 05/17/23 20:02 Respiratory Rate 16 05/17/23 20:02 Blood Pressure 99/62 L 05/17/23 20:02 Pulse Oximetry 97 05/17/23 20:02 Temperature 37.1 C 05/17/23 20:02 Temperature Source Oral 05/17/23 20:02 Pulse 61 05/17/23 20:41 Pulse 68 05/17/23 20:50 Respiratory Rate 13 05/17/23 20:50 Respiratory Effort Normal, Non-Labored 05/17/23 20:11 Respiratory Depth Normal 05/17/23 20:11 Respiratory Pattern Normal 05/17/23 20:11 Blood Pressure 96/61 L 05/17/23 20:41 Blood Pressure Mean 69 05/17/23 20:41 Blood Pressure Position Sitting 05/17/23 20:02 Pulse Oximetry 95 05/17/23 20:50 Oxygen Delivery Method Room Air 05/17/23 20:02 Oxygen Flow Rate 0 05/17/23 20:02 Pain Level 7 05/17/23 20:02 Lab/Test Results Lab/Test Results: Laboratory Tests Range/Units 05/17/23 05/17/23 20:23 20:23 WBC (4.4-10.8) 10^3/uL 10.30 RBC (4.36-5.78) 10^6/uL 4.44 Hgb (13.5-17.5) g/dL 13.0 L Hct (40.0-50.0) % 38.6 L MCV (80-95) fL 87 MCH (27.0-33.0) pg 29.3 MCHC (32.0-36.0) % 33.7 RDW (11.8-14.1) % 13.5 Plt Count (130-400) 10^3/uL 313 MPV (8.0-11.0) fL 10.7 Immature Gran % 0.7 Neutrophils % 69.9 Lymphocytes % 19.9 Monocytes % 7.1 Eosinophils % 2.0 Basophils % 0.4 Nucleated RBC % (0.0-0.3) % 0.0 Absolute Neutrophils (1.2-6.7) 10^3/uL 7.20 H Absolute Lymphocytes (1.2-3.4) 10^3/uL 2.05 Absolute Monocytes (0.1-0.8) 10^3/uL 0.73 Absolute Eosinophils (0.0-0.7) 10^3/uL 0.21 Absolute Basophils (0.0-0.2) 10^3/uL 0.04 Sodium (136-145) mmol/L 139 Potassium (3.5-5.1) mmol/L 4.6 Chloride (98-107) mmol/L 106 Carbon Dioxide (21.0-32.0) mmol/L 23.0 Anion Gap (3-11) mmol/L 10.0 BUN (7-18) mg/dL 23 H Creatinine (0.70-1.30) mg/dL 1.6 H Est GFR (CKD-EPI 2020) (mL/min/1.73m2) 50.26 Glucose (74-106) mg/dL 118 H Calcium (8.5-10.1) mg/dL 9.0 Magnesium (1.8-2.4) mg/dL 2.0 Total Bilirubin (0.2-1.0) mg/dL 0.2 AST (15-37) U/L 20 ALT (16-63) U/L 24 Alkaline Phosphatase (46-116) U/L 75 Troponin I (<or=60) ng/L < 50 Total Protein (6.4-8.2) g/dL 7.2 Albumin (3.4-5.0) g/dL 3.2 L
--- NOTE | 2023-05-17 22:15 | DI.CT_ITS ---
Exam(s) CT BRAIN NECK CTA EXAM: CT BRAIN NECK CTA CLINICAL HISTORY: AMS, NECK PAIN, vision change, dilated pupil R. TECHNIQUE: Imaging Protocol: Axial CT angiography was performed with multi-slice acquisition and mu lti-planar and 3D reconstructions. CONTRAST MATERIAL: Intravenous: Omnipaque 350 Contrast volume:structured data in ml COMPARISON: CT CT CHEST PE CTA from 05/10/2023 FINDINGS: Exam is limited by patient motion. CT Head W/O and W contrast: Ventricles and Extra axial spaces: Normal in size and morphology for the patient's age. Hemorrhage: None. Cerebral parenchyma: Normal. Midline shift: None. Brainstem/Cerebellum: Normal. Calvarium: Normal. Visualized Paranasal sinuses/Mastoids: Mild ethmoid sinus mucosal thickening. Soft Tissues: Unremarkable. Enhancement: Normal. CTA Brain W: Internal Carotid Arteries: Petrous: Normal. Cavernous: Normal. Cerebral: Normal. Middle Cerebral Arteries: Right: No aneurysm, occlusion or significant stenosis. Left: No aneurysm, occlusion or significant stenosis. Anterior Cerebral Arteries: Right: No aneurysm, occlusion or significant stenosis. Left: No aneurysm, occlusion or significant stenosis. Posterior cerebral Arteries: Right: No aneurysm, occlusion or significant stenosis. Left: No aneurysm, occlusion or significant stenosis. Vertebral Arteries: Right: No aneurysm, occlusion or significant stenosis. Left: No aneurysm, occlusion or significant stenosis. Basilar Artery: No aneurysm, occlusion or significant stenosis. CTA Neck W: Common Carotid: Right: No dissection, occlusion or significant stenosis. Left: No dissection, occlusion or significant stenosis. External Carotid: Right: No dissection, occlusion or significant stenosis. Left: No dissection, occlusion or significant stenosis. Internal Carotid: Right: Small amount of plaque at origin, producing mild stenosis, less than 50 percent. No dissectio n, occlusion or significant stenosis. Left: Minimal plaque. No significant stenosis. No dissection, occlusion or significant stenosis. Vertebral Artery: Right: No dissection, occlusion or significant stenosis. Left: No dissection, occlusion or significant stenosis. Lung Apices: Normal. Bones: Posterior fusion hardware. Degenerative changes. No acute abnormality. Soft Tissues: Normal. IMPRESSION: 1. Normal CTA examination of the [place]. Exam limited by motion. 2. Unremarkable CT Head. Exam limited by motion. 3. Mild plaque at the right proximal internal carotid artery causing less than 50 percent stenosis. Minimal stenosis on the left. RADIATION DOSE DELIVERED: 2,127.05mGy.cm Total DLP DATA REPOSITORY: All CT scans at this facility are submitted to the National Radiology Data Registry (NRDR) Dose Index Registry (DIR) with the [employer] (A[employer]). RADIATION OPTIMIZATION: All CT scans at this facility use at least one of these dose optimization te chniques: automated exposure control; mA and/or kV adjustment per patient size (includes targeted exa ms where dose is matched to clinical indication); or iterative reconstruction.
[2023-05-17] MEDS: Omnipaque 350 MG/ML 100 ML BTL IJ (22:32)
[2023-05-17 22:33] LABS: BE (Venous) -4 mmol/L (-2-3); HCO3 (Venous) 22 mmol/L (23-28); O2 Sat (Venous) 99 %; TCO2 (Venous) 20 mmol/L (24-29); pCO2 (Venous) 40 mmHg (41-51); pH (Venous) 7.35 (7.31-7.41); pO2 (Venous) 119 mmHg
[2023-05-17] MEDS: Normal Saline Flush 10 ML SYR IVP (22:33)
[2023-05-17] MEDS: Normal Saline - Diluent 50 ML VIAL IV (22:34)
[2023-05-17] MEDS: LORazepam 1 MG TAB PO/SL (23:01)
--- NOTE | 2023-05-17 23:19 | DI.VRAD_ITS ---
PROCEDURE INFORMATION: Exam: CTA Head Without And With Contrast, Arteriography Exam date and time: 05/17/2023 10:38 PM Age: 58 years old Clinical indication: Stroke-like symptoms; AMS / memory loss: Neck pain, vision change, dilated right pupil TECHNIQUE: Imaging protocol: Computed tomographic angiography of the head without and with contrast. Exam focused on the arteries. 3D rendering (Not supervised by radiologist): MIP and/or 3D reconstructed images were created by the technologist. Radiation optimization: All CT scans at this facility use at least one of these dose optimization techniques: automated exposure control; mA and/or kV adjustment per patient size (includes targeted exams where dose is matched to clinical indication); or iterative reconstruction. Contrast material: OMNIPAQUE 350; Contrast volume: 85 ml; Contrast route: INTRAVENOUS (IV); Other technique: STROKE PROTOCOL was implemented. COMPARISON: CT BRAIN NECK CTA 06/24/2021 6:02 PM FINDINGS: ANTERIOR CIRCULATION: Right internal carotid artery: Intracranial segment is patent with no significant stenosis or occlusion. No aneurysm. Right middle cerebral artery: No occlusion or significant stenosis. No aneurysm. Right anterior cerebral artery: No occlusion or significant stenosis. No aneurysm. Left internal carotid artery: Intracranial segment is patent with no significant stenosis. No aneurysm. Left middle cerebral artery: No occlusion or significant stenosis. No aneurysm. 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 No occlusion. POSTERIOR CIRCULATION: Right vertebral artery: No occlusion or significant stenosis. No aneurysm. Left vertebral artery: No occlusion or significant stenosis. No aneurysm. Basilar artery: No occlusion or significant stenosis. No aneurysm. Right posterior cerebral artery: No occlusion or significant stenosis. No aneurysm. Left posterior cerebral artery: No occlusion or significant stenosis. No aneurysm. HEAD: Brain: Normal. No hemorrhage. Unremarkable white matter. No mass effect. Cerebral ventricles: Normal benign gwyn cisterna magna. No ventriculomegaly. Bones/joints: Unremarkable. No acute fracture. Paranasal sinuses: Partial ethmoid sinusitis. Mastoid air cells: Visualized mastoids are normal. Soft tissues: Unremarkable. IMPRESSION: 1. No acute intracranial findings on initial CT head images performed without IV contrast. 2. CTA head within normal limits. No aneurysm. No large vessel occlusion. 3. .ASPECTS ([place] Stroke Program Early CT Score) is 10. PROCEDURE INFORMATION: Exam: CTA Neck Without And With Contrast Exam date and time: 05/17/2023 10:38 PM Age: 58 years old Clinical indication: Stroke-like symptoms; AMS / memory loss: Neck pain, vision change, dilated right pupil. HX c-spine fx TECHNIQUE: Imaging protocol: Computed tomographic angiography of the neck without and with contrast. 3D rendering (Not supervised by radiologist): MIP and/or 3D reconstructed images were created by the technologist. Radiation optimization: All CT scans at this facility use at least one of these dose optimization techniques: automated exposure control; mA and/or kV adjustment per patient size (includes targeted exams where dose is matched to clinical indication); or iterative reconstruction. Contrast material: OMNIPAQUE 350; Contrast volume: 85 ml; Contrast route: INTRAVENOUS (IV); COMPARISON: CT BRAIN NECK CTA 06/24/2021 6:02 PM FINDINGS: Right common carotid artery: No stenosis. No dissection or occlusion. Right internal carotid artery: Calcific plaque within the origin of the right internal carotid artery producing 30-40% stenosis. Right external carotid artery: No occlusion or stenosis of the origin. Left common carotid artery: No stenosis. No dissection or occlusion. Left internal carotid artery: Small amount of calcific plaque in the origin of the left internal carotid artery without significant stenosis or occlusion. Left external carotid artery: No occlusion or stenosis of the origin. Right vertebral artery: No stenosis. No dissection or occlusion. Left vertebral artery: No stenosis. No dissection or occlusion. Soft tissues: No significant soft tissue swelling. Bones/joints: Prior cervical spine surgery. IMPRESSION: 1. Calcific plaque within the origin of the right internal carotid artery producing 30-40% stenosis. 2. Small amount of calcific plaque in the origin of the left internal carotid artery without significant stenosis or occlusion. 3. Patent vertebral arteries bilaterally. REFERENCES: NASCET CRITERIA. The degree of stenosis in the cervical segment of the internal carotid artery is based on NASCET criteria. Normal is no stenosis. Mild is less than 50% stenosis. Moderate is 50-69% stenosis. Severe is 70% to 99% stenosis. Total occlusion is no detectable patent lumen. Dictated and Authenticated by: Jeff Esqueda MD. Ordering:KELLEY Herring MD
[2023-05-17 23:23] LABS: *AMPHETAMINES SCREEN URINE Negative (Negative); *BARBITURATES SCREEN URINE Negative (Negative); *BENZODIAZEPINES SCREEN URINE Negative (Negative); Cannabinoids THC Positive (Negative); Cocaine Screen,Urine Negative (Negative); METHADONE URINE SCREEN Negative (Negative); OPIATES URINE SCREEN Positive (Negative)
[2023-05-17 23:24] LABS: Tricyclic Antidepressants Negative (Negative)
[2023-05-18 01:44] VITALS: BP 114/66; PULSE 62; RESP 16; TEMP 36.6; O2SAT 97
--- NOTE | 2023-05-18 02:50 | NUR.NOTE ---
Nursing Note: Patient out of ER with Calex at 02:50am.
--- NOTE | 2023-05-21 09:00 | NUR.NOTE ---
Nursing Note: Accessed pt chart to determine disposition of patient home.
== END 2023-05-18 02:55 | disposition home or self-care (01) ==
PROVIDERS: Emergency Provider Emergency Medicine; PCP Family Medicine
DX: H54.7 Unspecified visual loss (principal); M54.2 Cervicalgia
CPT/HCPCS: 36415; 70496; 70498; 80053; 80307; 82805; 93005; 96361; 96365; 99285; 83735; 84484; 85025; 93010; 99284; J0131; J3490

== ENCOUNTER 2023-06-15 13:31 | Outpatient (REF) | payer MEDICARE, SELFPAY | END 2023-06-15 13:32 | disposition home or self-care (01) | LOC: NCHCN 13:31 | PROVIDERS: PCP Family Medicine; Visit Provider Family Medicine | DX: N39.0 Urinary tract infection, site not specified (principal) | CPT/HCPCS: 87077; 87186; 87086; 87106 ==

== ENCOUNTER 2023-06-22 14:00 | Outpatient (REF) | payer MEDICARE, MEDICAID, SELFPAY ==
[2023-06-22 16:04] LABS: Anion Gap 10.3 mmol/L (3-11); BUN 19 mg/dL (7-18); CO2 23.7 mmol/L (21.0-32.0); CREATININE 0.6 mg/dL (0.70-1.30); Calcium 9.3 mg/dL (8.5-10.1); Chloride 107 mmol/L (98-107); Estimated GFR 113.29 (mL/min/1.73m2); Glucose 97 mg/dL (74-106); Potassium 4.6 mmol/L (3.5-5.1); Sodium 141 mmol/L (136-145)
== END 2023-06-22 14:01 | disposition home or self-care (01) ==
LOC: NCHCN 14:00
PROVIDERS: PCP Family Medicine; Visit Provider Family Medicine
DX: Z01.812 Encounter for preprocedural laboratory examination (principal)
CPT/HCPCS: 80048

== ENCOUNTER 2023-06-24 18:33 | Outpatient (REF) | payer MEDICARE, MEDICAID, SELFPAY | END 2023-06-24 18:34 | disposition home or self-care (01) | LOC: NCHCN 18:33 | PROVIDERS: PCP Family Medicine; Visit Provider Family Medicine | DX: N39.0 Urinary tract infection, site not specified (principal) | CPT/HCPCS: 87077; 87086 ==

== ENCOUNTER → 2023-07-07 01:59 | Outpatient (CLI) | payer MEDICARE, MEDICAID, SELFPAY ==
--- NOTE | 2023-07-07 | DI.MRI_ITS ---
Exam(s) MR PELVIS WO/W EXAM: MR PELVIS WO/W CLINICAL HISTORY: OSTEOMYELITIS,M86.9,DECUBITUS ULCER OFBUTTOCK,L89.309,NON HEALING SACRAL UL COMPARISON: MR MR PELVIS WO/W from 02/24/2022 Technique: Multisequence MRI performed on 1.5 jerri unit with both pre and post contrast infused sequ ences. Contrast injected was Dotarem 16 mL FINDINGS: OSSEOUS/ARTICULATIONS no hip joint effusions. Some degenerative change noted in the. And: There are no fractures evident. There is abnormal focal signal in the left greater tuberosity evident on STIR images. There is also mild intraosseous enhancement at this level following contrast injection, these findings consistent w ith focal osteomyelitis of the left ischial tuberosity. Similar findings not seen on the opposite-right side MUSCULOTENDINOUS: Relatively symmetrical signal abnormality in the in all of the bilateral gluteus mu sculature consistent with muscular edema, without evidence of abscess. Also some overlying edema in the subcutaneous fat over both hips/greater trochanters. There is a chronic appearing decubitus ulcer on the left side. There is no abnormal stir bright sign al at this level although there is some mild tract enhancement. INTRAPELVIC: There is a suprapubic catheter in the nondistended bladder. There appear to be calculi in the urinary bladder. Abnormal intrapelvic fluid collections. IMPRESSION: Findings are consistent with focal osteomyelitis in the left ischial tuberosity, this subjacent to a nonacute appearing decubitus ulcer tract at this level. Relatively symmetrical atrophy and edema in the bilateral gluteus musculature as well as some edema i n the subcutaneous fat lateral to both hips. DATA REPOSITORY:
[2023-07-07] MEDS: Gadoterate meglumine 20 ML VIAL IVP (11:20)
== END ==
PROVIDERS: PCP Family Medicine; Visit Provider Nurse Practitioner Family
DX: M86.9 Osteomyelitis, unspecified; M62.89 Other specified disorders of muscle; R60.9 Edema, unspecified
CPT/HCPCS: 72197; 96523

== ENCOUNTER 2023-07-07 02:20 | Outpatient (RCR) | payer MEDICARE, MEDICAID, SELFPAY ==
[2023-07-07] MEDS: Normal Saline Flush 10 ML SYR IVP (10:42)
[2023-07-07] MEDS: Heparin 500 UNITS/5 ML SYRINGE (12:21)
== END 2023-08-01 23:59 | disposition home or self-care (01) ==
LOC: INF 02:20
PROVIDERS: PCP Family Medicine; Visit Provider Nurse Practitioner Family
DX: Z45.2 Encounter for adjustment and management of vascular access device (principal)
CPT/HCPCS: 96523

== ENCOUNTER → 2023-07-09 13:23 | Outpatient (BNVA) | payer MEDICARE, MEDICAID, SELFPAY | PROVIDERS: PCP Family Medicine; Referring Provider Family Medicine; Visit Provider Nurse Practitioner Gerontology | DX: N21.0 Calculus in bladder (principal); Z93.59 Other cystostomy status; N31.8 Other neuromuscular dysfunction of bladder; G82.50 Quadriplegia, unspecified | CPT/HCPCS: 99214 ==

== ENCOUNTER 2023-07-27 08:12 | Day surgery (SDC) | payer MEDICARE, MEDICAID, SELFPAY ==
[2023-07-27] VITALS (9 sets, daily range): BP systolic 107–181; BP diastolic 69–107; PULSE 61–89; RESP 15–21; TEMP 36–36.6; O2SAT 2–100; BMI 23.7
--- NOTE | 2023-07-27 06:30 | W.ANESPRE ---
General Info Date of Service Date Performed: 07/27/23 Height: 6 ft 2 in Weight: 83.915 kg Body Mass Index (BMI): 23.7 Surgical Procedure: Operation Date: 07/27/23 10:10 Proposed Procedure Side Surgeon p Cystoscopy w/Stone Evacuation Ady Molina MD Meds Allergies and Home Medications Allergies Allergy/AdvReac Type Severity Reaction Status Date / Time No Known Allergies Allergy Verified 07/27/23 08:28 Home Medication Medication Instructions Recorded Lactobacillus acidoph-L.bulgaricus 1 tab PO TID #90 tabs 01/08/22 1 million cell tablet (Floranex) acetaminophen 325 mg tablet 650 mg PO Q6H PRN PRN fever or 01/08/22 (Tylenol) pain #30 tabs docusate sodium 100 mg capsule 100 mg PO TID #90 caps 01/08/22 (Colace) mirabegron 25 mg tablet,extended 25 mg PO DAILY #30 tabs 01/08/22 release 24 hr (Myrbetriq) multivitamin,tx-minerals 1 tab PO DAILY #30 tabs 01/08/22 nutritional supplements 1 packet PO TID #90 ea 01/08/22 (Phlexy-Vits) sennosides 8.6 mg capsule (senna) 17.2 mg PO BID #120 caps 01/08/22 magnesium chloride 64 mg 128 mg PO BID 02/24/22 (magnesium chloride) tablet,delayed release (Mag-Delay) nystatin 100,000 unit/gram topical 1 applic topical BID #60 grams 09/29/22 powder baclofen 20 mg tablet 60 mg PO TID #270 tabs 02/27/23 diclofenac sodium 1 % topical gel 4 g topical QID PRN muscle pain 02/27/23 (Voltaren Arthritis Pain) #100 grams divalproex 250 mg tablet,extended 250 mg PO HS #90 tabs 05/26/23 release 24 hr (Depakote ER) amoxicillin 500 mg tablet 500 mg PO QID #28 tabs 05/27/23 ascorbic acid (vitamin C) 500 mg See Rx Instructions .Route 07/09/23 tablet (Vitamin C) .COMPLEX #120 tabs cephalexin 250 mg capsule 250 mg PO DAILY 07/24/23 cholecalciferol (vitamin D3) 25 1,000 units PO DAILY 07/24/23 mcg (1,000 unit) tablet (Vitamin D3) lorazepam 1 mg tablet (Ativan) 1 mg PO TID 07/24/23 methenamine hippurate 1 gram 1 g PO TID 07/24/23 tablet (Hiprex) sildenafil 100 mg tablet (Viagra) 100 mg PO DAILY PRN sexual activity 07/24/23 Current Visit Medications: Current Medications Generic Name Dose Route Start Last Admin Trade Name Freq PRN Reason Stop Dose Admin Ringer's Solution 1,000 mls @ 80 mls/hr 07/27/23 06:00 IV 08/23/23 23:59 INFUSION [facility] Gentamicin Sulfate 160 mg/ 104 mls @ 208 mls/hr 07/27/23 06:00 Sodium Chloride IVPB 07/27/23 18:00 PREOP [facility] IV Miscellaneous Supplies 1 each 07/27/23 06:00 Iv Access IV 08/23/23 23:59 DIRECTED [place] Sodium Chloride 0 ml 07/27/23 06:00 Normal Saline Flush 10 Ml Syr IV 08/23/23 23:59 PRN PRN Sodium Chloride 0 ml 07/27/23 06:00 Normal Saline 10 Ml Vial IJ 08/23/23 23:59 DIRECTED PRN Sterile Water 0 ml 07/27/23 06:00 Water,Injection,Sterile 10 Ml Vial IJ 08/23/23 23:59 DIRECTED PRN PFSH Active Problems Active Problems: Problem Status Onset Code Anxiety disorder F41.9 History of UTI Z87.440 Bladder stones N21.0 Palliative care patient Z51.5 Neck pain M54.2 Decubitus skin ulcer L89.90 Insomnia G47.00 Constipation due to neurogenic bowel K59.00, K59.2 Chronic recurrent multifocal osteomyelitis 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 difficile colitis Constipation Decubitus ulcer of buttock, stage 4 Dislocation of C6/C7 cervical vertebrae DNR (do not resuscitate) DVT (deep venous thrombosis) DVT prophylaxis Encounter for wound care Fall down embankment Fusion of spine H/O deep venous thrombosis Hypokalemia Hypotension Ileus Insomnia Iron deficiency anemia Large bowel obstruction Low magnesium level Malnutrition following gastrointestinal surgery Muscle spasm Neurogenic bowel Open wound of abdominal wall Physician orders for life-sustaining treatment (POLST) form indicates patient wish for cg-bca-wmgcmcgaush status Right arm pain Visit for wound check Weight gain Medical History Comments:: Daily joseuna Surgical History Surgical History History of infusaport central venous catheter insertion S/P colostomy Suprapubic catheter Tobacco Smoking/Tobacco Use Status: Never Alcohol Alcohol Intake: current Alcohol intake frequency: holidays/special occasions only Substance Use Substance use: Daily Substance use type: marijuana Vital Signs and Lab Results Vital Signs Most Recent Vital Signs in EMR: Temp Pulse Resp BP Pulse Ox 36.5 C 63 20 107/69 94 07/27/23 09:03 07/27/23 09:03 07/27/23 09:03 07/27/23 09:03 07/27/23 09:03 Lab Results Blood Type / Crossmatch: No Data to Display Complete Blood Count: No Data to Display Complete Metabolic Panel: No Data to Display Liver Function Panel: No Data to Display Coagulation Panel: No Data to Display Cardiac Panel: No Data to Display Arterial Blood Gas: No Data to Display Venous Blood Gas: No Data to Display Pancreas Panel: No Data to Display Thyroid Panel: No Data to Display Infectious Disease: No Data to Display Blood Cultures: No Data to Display Toxicology Panel: No Data to Display Imaging and Studies Imaging and Studies Study information below may be from another EMR and interpreted by another provider. Please see original notes in EMR for more complete details. EKG Summary: 02/20: sinus rhythm. Echocardiogram Summary: 09/04/21: EF 57%, No hemodynamic valve concerns 03/18/2021 Conclusion Left Ventricle : The left ventricle is normal size. The overall left ventricular systolic function appears normal. There is normal left ventricular wall thickness. Regional wall motion is not well visualized but grossly normal. The left ventricular diastolic function is normal. Right Ventricle : Right ventricle is not well visualized. Right ventricular systolic function could not be assessed. Atria : The left atrium size is normal. The right atrium size is normal. Valves: There are no hemodynamically significant valvular lesions. There is no clear evidence of endocarditis in this technically limited study. Great Vessels : The aortic root is normal in size. The ascending aorta is mildly dilated. IVC is normal in size and collapses >50% with inspiration. Please see remainder of findings for further details. Anesthesia Assessment and Plan Anesthesia History Personal History: No History of Anesthesia Complications and No History of General Anesthesia Family History: No Family History of Anesthesia Complications Exercise Tolerance Exercise Tolerance: Metabolic Equivalents<4 Cardiac & Pulmonary Exam Cardiac Exam: Normal S1/S2 Heart Sounds Pulmonary Exam: Clear Bilateral Breath Sounds Implantable Cardiac Device Does patient have a Pacemaker or an ICD?: No Airway Exam Known Difficult Airway: No Previous Airway Comments:: Previous intubation at [facility] with 2 hand mask ventilation with 100 mm OPA, cmac d blade grade 1. Mallampati Class: 2 Mouth Opening: Normal (> 3cm) Thyromental Distance: Greater than 3 cm Neck Range of Motion: Limited ROM Neck Circumference: Normal Teeth Condition: Loose or Chipped Airway Comments: multiple missing teeth. ASA Classification ASA Score: ASA 3 Emergency Case?: No NPO Status NPO Status: NPO Clears >2 hours, Solids >8 hours Anesthesia Plan Resuscitation Status: Full Code Anesthesia Technique: General Anesthesia Airway Planned: Endotracheal Tube Monitors Used: Standard Monitors Preoperative Comments:: 58 yo male for cysto stone evac. Sig PMHx: quad, anxiety, DVT, neurogenic bladder. Previous Anes: - [place] 3 grade 1. - glide 3 grade 2b - ? autonomic dysreflexia in the past. Given the previous history of what appears to be dysreflexia, GA was discussed.
[2023-07-27] MEDS: Lactated Ringers 1,000 ML 80 ML IV (09:30)
[2023-07-27] MEDS: LORazepam 1 MG TAB PO ×2 (09:46→14:26)
--- NOTE | 2023-07-27 09:49 | NUR.NOTE ---
0927: Pt. reports he is having a fit states he needs ativan, because he didnt get any this morning. Pt. reports prickly heat and is visibly shaking. Nurse offered cool air, pt. states if i am having this with warm blankets on , then dont remove them. Pt. states he believes it is anxiety and he needs ativan. Aquilino Neumann CRNA aware and ordered pt. home dose of Ativan 1 mg PO, aware and okay with pt. receiving this medication prior to procedure. Nursing Note:
--- NOTE | 2023-07-27 10:54 | W.PM.HP.N ---
Date of service: 07/27/23 Time of Service: 10:54 Assessment and Plan Assessment and plan (1) Bladder stones: Status: Acute Assessment and plan: For cystoscopy and evacuation of bladder stones History of Present Illness History of Present Illness Chief Complaint: Bladder stones Narrative: This is a 58-year-old gentleman who is a quadriplegic and has a neurogenic bladder. He is maintained with an indwelling suprapubic tube. He has a history of developing struvite urinary tract stones in his bladder. The stones have caused occlusion of his catheters along with recurrent symptomatic infections. He presents now for cystoscopy with evacuation of bladder stones. Review of Systems Narrative: No fevers or chills No vision change or dysphasia No diabetes or thyroid dysfunction No shortness of breath, cough or hemoptysis No chest pain or palpitations No nausea, vomiting, hepatitis, ulcers, jaundice Quadraplegia. No seizures, strokes or peripheral neuropathy No bleeding disorders or anemia Osteomyelitis. No gout PFSH All Active Problems Anxiety disorder (Acute) History of UTI (Acute) Bladder stones (Acute) Palliative care patient (Acute) Neck pain (Acute) Decubitus skin ulcer (Acute) Insomnia (Acute) Constipation due to neurogenic bowel (Acute) Chronic recurrent multifocal osteomyelitis (Chronic) Acute osteomyelitis of sacrum (Chronic) Major depressive disorder (Chronic) Neurogenic bladder (Chronic) Quadriplegia (Chronic) Medical History Acute embolism and thrombosis of deep vein of right lower extremity DIAMOND (acute kidney injury) Aspiration into airway Bronchospasm C. difficile colitis Constipation Decubitus ulcer of buttock, stage 4 Dislocation of C6/C7 cervical vertebrae DNR (do not resuscitate) DVT (deep venous thrombosis) DVT prophylaxis Encounter for wound care Fall down embankment Fusion of spine H/O deep venous thrombosis Hypokalemia Hypotension Ileus Insomnia Iron deficiency anemia Large bowel obstruction Low magnesium level Malnutrition following gastrointestinal surgery Muscle spasm Neurogenic bowel Open wound of abdominal wall Physician orders for life-sustaining treatment (POLST) form indicates patient wish for ca-dqf-cmqabydcaqh status Right arm pain Visit for wound check Weight gain Surgical History History of infusaport central venous catheter insertion S/P colostomy Suprapubic catheter Social History Smoking/Tobacco Use Status: Never Smoking risk assessment performed?: Yes Alcohol Intake: current Alcohol Intake frequency: holidays/special occasions only Drug use: Daily Substance use type: marijuana Details: marijuana: smoking, t-1, a bowl Housing: house Do you feel safe at home: Yes Do you feel safe in your relationship?: Yes Additional Social history: Rents room, has assistance at home; caregiver is [place] Meds Allergies and Home Medications Allergies Allergy/AdvReac Type Severity Reaction Status Date / Time No Known Allergies Allergy Verified 07/27/23 08:28 Home Medications Medication Instructions Recorded Confirmed Type Lactobacillus acidoph-L.bulgaricus 1 tab PO TID #90 tabs 01/08/22 07/27/23 Rx 1 million cell tablet (Floranex) acetaminophen 325 mg tablet 650 mg PO Q6H PRN PRN fever or 01/08/22 07/27/23 Rx (Tylenol) pain #30 tabs docusate sodium 100 mg capsule 100 mg PO TID #90 caps 01/08/22 07/27/23 Rx (Colace) mirabegron 25 mg tablet,extended 25 mg PO DAILY #30 tabs 01/08/22 07/27/23 Rx release 24 hr (Myrbetriq) multivitamin,tx-minerals 1 tab PO DAILY #30 tabs 01/08/22 07/27/23 Rx nutritional supplements 1 packet PO TID #90 ea 01/08/22 07/27/23 Rx (Phlexy-Vits) sennosides 8.6 mg capsule (senna) 17.2 mg PO BID #120 caps 01/08/22 07/27/23 Rx magnesium chloride 64 mg 128 mg PO BID 02/24/22 07/27/23 History (magnesium chloride) tablet,delayed release (Mag-Delay) nystatin 100,000 unit/gram topical 1 applic topical BID #60 grams 09/29/22 07/27/23 Rx powder baclofen 20 mg tablet 60 mg PO TID #270 tabs 02/27/23 07/27/23 Rx diclofenac sodium 1 % topical gel 4 g topical QID PRN muscle pain 04/28/23 09/25/23 Rx (Voltaren Arthritis Pain) #100 grams divalproex 250 mg tablet,extended 250 mg PO HS #90 tabs 05/26/23 07/27/23 Rx release 24 hr (Depakote ER) amoxicillin 500 mg tablet 500 mg PO QID #28 tabs 05/27/23 07/27/23 Rx ascorbic acid (vitamin C) 500 mg See Rx Instructions .Route 07/09/23 07/27/23 Rx tablet (Vitamin C) .COMPLEX #120 tabs cephalexin 250 mg capsule 250 mg PO DAILY 07/24/23 07/27/23 History cholecalciferol (vitamin D3) 25 1,000 units PO DAILY 07/24/23 07/27/23 History mcg (1,000 unit) tablet (Vitamin D3) lorazepam 1 mg tablet (Ativan) 1 mg PO TID 07/24/23 07/27/23 History methenamine hippurate 1 gram 1 g PO TID 07/24/23 07/27/23 History tablet (Hiprex) sildenafil 100 mg tablet (Viagra) 100 mg PO DAILY PRN sexual activity 07/24/23 07/27/23 History Exam Const General: anxious and frail appearing Neck Neck: supple Resp Effort & Inspection: normal respiratory effort Auscultation: clear to auscultation bilaterally Cardio Rate: regular rate Rhythm: regular rhythm GI Palpation: soft Neuro General: patient alert and patient awake Results Last Vital Signs Temp 36.5 C 07/27/23 09:03 Pulse 63 07/27/23 09:03 Resp 20 07/27/23 09:03 BP 107/69 07/27/23 09:03 Pulse Ox 94 07/27/23 09:03 Time Spent Time spent with Patient: <40 minutes Time was spent: other
--- NOTE | 2023-07-27 11:25 | NUR.NOTE ---
1116: spoken to on unit about Favio's condition: bloody fingers, scrapes/scabs on feet, warm/red/swollen area on R wrist, mepilex on L buttock that is soiled and not adhered well. Nursing Note:
[2023-07-27] MEDS: GENTAMICIN 160 MG in Normal Saline 100 ML 208 MG IVPB (11:33)
--- NOTE | 2023-07-27 12:25 | W.PM.DSUDISC ---
Date of service: 07/27/23 Time of Service: 12:25 Discharge Plan Disposition Condition: Stable Discharge Details Reason For Visit: bladder stones Attending Provider: Ady Molina Primary Care Provider: Genevieve Baez Home Meds and New Rx's Prescriptions: No Action baclofen 20 mg tablet 60 mg PO TID Qty: 270 6RF diclofenac sodium [Voltaren Arthritis Pain] 1 % gel 4 g topical QID PRN (Reason: muscle pain) Qty: 100 5RF Rx Instructions: apply to painful muscles divalproex [Depakote ER] 250 mg tablet extended release 24 hr 250 mg PO HS Qty: 90 4RF amoxicillin 500 mg tablet 500 mg PO QID Qty: 28 0RF Patient Comments: pt. states he thinks he is on this for a UTI also ascorbic acid (vitamin C) [Vitamin C] 500 mg tablet See Rx Instructions .ROUTE .COMPLEX Qty: 120 11RF Dose Instruction: TAKE 1 TABLET BY MOUTH FOUR TIMES A DAY Rx Instructions: TAKE 1 TABLET BY MOUTH FOUR TIMES A DAY nystatin 100,000 unit/gram powder 1 applic topical BID Qty: 60 4RF cephalexin 250 mg capsule 250 mg PO DAILY Patient Comments: pt. reports he is taking for a UTI sildenafil [Viagra] 100 mg tablet 100 mg PO DAILY PRN (Reason: sexual activity) Rx Instructions: administer 30 minutes to 4 hours before activity. Call Favio for credit card number. He knows its self pay methenamine hippurate [Hiprex] 1 gram tablet 1 g PO TID lorazepam [Ativan] 1 mg tablet 1 mg PO TID MDD 3 mg cholecalciferol (vitamin D3) [Vitamin D3] 25 mcg (1,000 unit) tablet 1,000 units PO DAILY Phlexy-Vits Powder In Packet 1 packet PO TID Qty: 90 0RF Myrbetriq 25 mg Tablet Extended Release 24 Hr 25 mg PO DAILY Qty: 30 0RF Patient Comments: pt. reports he probably took yesterday acetaminophen [Tylenol] 325 mg tablet 650 mg PO Q6H PRN PRN (Reason: fever or pain) Qty: 30 0RF docusate sodium [Colace] 100 mg capsule 100 mg PO TID Qty: 90 0RF multivitamin,tx-minerals Tablet 1 tab PO DAILY Qty: 30 0RF senna 8.6 mg capsule 17.2 mg PO BID Qty: 120 0RF Lactobacillus acidoph-L.bulgar [Floranex] 1 million cell tablet 1 tab PO TID Qty: 90 0RF Mag-Delay 64 mg tablet,delayed release (DR/EC) 128 mg PO BID Discharge Instructions Additional Instructions: no need for in-person appointment, but ask pt/family/care givers to call us with a progress report in @ 1 week resume catheter changes at home (catheter changed by me today) suprapubic catheter to leg bag Stand Alone Forms: Anesthesia Discharge Inst., [facility]rology Cysto, Press Ganey ([facility]) Activity:: Activity as Tolerated Shower/Bathe:: 24 hours Diet:: As Tolerated DS: Diagnosis Discharge Diagnosis (1) Bladder stones: Status: Acute
--- NOTE | 2023-07-27 12:54 | W.ANESPOSTOP ---
Postoperative Evaluation Date, Time and Location Date Performed: 07/27/23 Time Performed: 12:54 Patient Location: PACU Vital Signs Most Recent Imported Vital Signs: Most Recent Vital Signs Temp Pulse Resp BP Pulse Ox 36.5 C 63 20 107/69 94 07/27/23 09:03 07/27/23 09:03 07/27/23 09:03 07/27/23 09:03 07/27/23 09:03 Pain Score Most Recent Pain Score: Most Recent Pain Score Pain Level 0 07/27/23 09:03 Assessment Mental Status: Awake (Alert & Oriented to Patient Baseline) Airway and Respiratory Function: Patent airway with normal (patient baseline) respiratory exam Cardiovascular Function: Hemodynamically Stable Hydration Status: Adequately Hydrated Nausea & Vomiting: No Nausea or Vomiting Pain: Pt. Denies Any Pain Peripheral Nerve Block: Patient did not receive a nerve block
--- NOTE | 2023-07-27 13:58 | W.PM.OP ---
Date of service: 07/27/23 Time of Service: 12:00 Operative Note Operative Note PRE-OP DIAGNOSIS: Bladder stones POST-OP DIAGNOSIS: same PROCEDURE: cystoscopy with holmium laser lithotripsy of bladder stones, evacuation of stone fragments SURGEON: Ady Molina ANESTHESIA TYPE: General LMA/ETT Refer to Anesthesia Record ESTIMATED BLOOD LOSS: 5 PATHOLOGY: other (bladder stones for chemical analysis) COMPLICATIONS: None Patient was transported to: PACU Patient's condition: stable Implants: 20 polish suprapubic catheter with 10 cc sterile water in balloon Indications: This is a 58-year-old gentleman who has a history of a neurogenic bladder. He has a chronic indwelling suprapubic tube. He develops recurrent bladder stones and urinary tract infections. His most recent imaging studies have demonstrated an increase in his stone burden. His catheter is required changing every week because of occlusion. He presents for stone manipulation. Findings: Multiple stones within the bladder Procedure Description: The patient was given preoperative IV antibiotics. He was brought to the operating room on 07/27/2023. He was placed in the supine position. After successful induction of general anesthesia, his suprapubic tube was removed. His suprapubic tract was prepped with Betadine. I then passed the 22 Sammarinese rigid cystoscope through the suprapubic tract into the bladder. Multiple stones were visualized within the bladder. The stones were too large to grasp and extract, so used a 972 ?m holmium laser fiber to fragment the stones. We used a power setting of 0.8 and a rate of 10. As the stone was fragmented, I was able to aspirate them through the suprapubic tract using a Surinder syringe. At the completion of the procedure, any small remaining stone fragments were removed with the alligator forceps. All extracted stone material was sent to the lab for chemical analysis. The bladder was filled with irrigant, the cystoscope was removed and a new 20 Sammarinese catheter was passed down through the suprapubic tract into the bladder. The catheter balloon was inflated with 10 cc of sterile water. Hand irrigation of the catheter was performed and the catheter was then hooked to gravity drainage.
== END 2023-07-27 14:50 | disposition home or self-care (01) ==
PROVIDERS: PCP Family Medicine; Visit Provider Urology
PROC: 0TJB8ZZ Inspection of Bladder, Via Natural or Artificial Opening Endoscopic (ICD-10-PCS; CPT 52000; principal; 2023-07-27 10:00)
DX: N21.0 Calculus in bladder (principal); G82.50 Quadriplegia, unspecified; N31.9 Neuromuscular dysfunction of bladder, unspecified
CPT/HCPCS: 51705; 52318; 82365; J1580; J2001; J2405; J2704

== ENCOUNTER 2023-07-28 18:44 | Inpatient (IN) | payer MEDICARE, MEDICAID, SELFPAY ==
[2023-07-28] VITALS (43 sets, daily range): BP systolic 52–198; BP diastolic 32–105; PULSE 42–86; RESP 0–32; TEMP 36.8
--- NOTE | 2023-07-28 18:30 | RT.EKG_ITS ---
APPROVED REPORT Exam: Resting ECG Reason for Exam: Patient Location: E HR:82 bpm ECG Measurements Heart Rate 82 AXIS SD 155 P 48 QRSd 103 QRS -71 QT 374 T 73 QTc 437 Conclusion Sinus rhythm...normal P axis, V-rate 60- 99 Probable left atrial enlargement...P >50mS, <-0.10mV V1 Incomplete RBBB and LAFB...axis(240,-40), S>R II III aVF ST elevation, consider inferior injury...ST >0.08mV, II III aVF Normal sinus rhythm at a rate of 82 with interventricular conduction delay. Left axis deviation and incomplete right bundle branch block. Mild upsloping ST segment slightly more pronounced in inferior leads compared to prior. Persistent T wave inversion in aVL.
--- NOTE | 2023-07-28 18:45 | DI.CT_ITS ---
Exam(s) CT ABDOMEN PELVIS W EXAM: CT ABDOMEN PELVIS W CLINICAL HISTORY: Generalized abdominal tenderness TECHNIQUE: Imaging Protocol: Axial computed tomography images with coronal and sagittal reformatted images were created and reviewed CONTRAST MATERIAL: Intravenous: Omnipaque 350 Contrast volume:100 mL Oral: No COMPARISON: CT CT ABDOMEN PELVIS W from 06/26/[address] CHEST PE CTA from 05/10/[address] BRAIN NECK CTA from 05/17/2023 FINDINGS: ABDOMEN: Lung Bases: There is a left basilar infiltrate. There is a small right basilar infiltrate. Liver: Normal density. No measurable mass. Portal, Superior Mesenteric, and Splenic Veins: Unremarkable. Gallbladder and Biliary Tract: No radiodense calculus or dilation. Pancreas: Normal density, no abnormal calcifications or inflammatory process. Spleen: Normal. Adrenals: No masses seen. Kidneys: Normal size, contour and axis. There is right nephrolithiasis. No hydronephrosis. No charmaine s seen. Abdominal Aorta: Abdominal portion non-dilated. Atherosclerosis. Bowel: No obstruction or bowel wall thickening. There is no evidence of appendicitis. There is a lef t lower quadrant colostomy. There is contrast seen in the rectal stump. Peritoneal Cavity: No ascites, collection or mesenteric inflammatory response. No free air. Lymph Nodes: Within normal limits. Bones: Within normal limits for the patient's age. Soft Tissues: Unremarkable. PELVIS: Bladder: The urinary bladder is decompressed. The patient is a suprapubic catheter. There is diffus e thickening of the wall of the urinary bladder. Reproductive Organs: Mildly enlarged. Lymph Nodes: Within normal limits. Bones: Within normal limits for the patient's age. IMPRESSION: 1. Right nephrolithiasis without evidence of obstructing uropathy. 2. Left lower quadrant colostomy in place. No evidence of bowel obstruction or bowel wall thickening . 3. There is a suprapubic catheter within the urinary bladder. The urinary bladder is decompressed. There is a small amount of air seen around the Beck catheter balloon. 4. No evidence of cholelithiasis or biliary ductal dilatation. 5. Left lower lobe infiltrate which may represent atelectasis or pneumonia. RADIATION DOSE DELIVERED: 1,132.27mGy.cm Total DLP DATA REPOSITORY: All CT scans at this facility are submitted to the National Radiology Data Registry (NRDR) Dose Index Registry (DIR) with the [employer] (ACR). RADIATION OPTIMIZATION: All CT scans at this facility use at least one of these dose optimization te chniques: automated exposure control; mA and/or kV adjustment per patient size (includes targeted exa ms where dose is matched to clinical indication); or iterative reconstruction.
--- NOTE | 2023-07-28 18:45 | DI.RAD_ITS ---
Exam(s) XR PORTABLE CHEST AP EXAM: XR PORTABLE CHEST AP CLINICAL HISTORY: Shortness of breath TECHNIQUE: 2D digital imaging was performed of the chest. One image was obtained. An AP view was ob tained. COMPARISON: CR,XR XR PORTABLE CHEST AP from 05/17/2023 FINDINGS: MEDIASTINUM: Normal. HEART: Normal. PULMONARY VASCULATURE: Normal. LUNGS: The lung apices are not included. The lungs are otherwise clear. PLEURAL SPACE: No pleural effusion or pneumothorax. BONE:Within normal limits for the patient's age. The distal aspect of spinal surgery is seen at the t op of the film. OTHER FINDINGS:There is a left-sided port. The tip of the catheter is in good position near the cavo atrial junction. IMPRESSION: No acute pulmonary findings. DATA REPOSITORY: RADIATION DOSE DELIVERED:
--- NOTE | 2023-07-28 18:53 | ED.GENADUL_ITS ---
Discharge Plan Discharge Details Chief Complaint: Chest Pain Clinical Impression: Decubitus skin ulcer, Abrasion of foot, right Primary Care Provider: Genevieve Baez ED Provider: Lauri Soto [place] Meds and New Rx's Prescriptions: No Action baclofen 20 mg tablet 60 mg PO TID Qty: 270 6RF diclofenac sodium [Voltaren Arthritis Pain] 1 % gel 4 g topical QID PRN (Reason: muscle pain) Qty: 100 5RF Rx Instructions: apply to painful muscles divalproex [Depakote ER] 250 mg tablet extended release 24 hr 250 mg PO HS Qty: 90 4RF amoxicillin 500 mg tablet 500 mg PO QID Qty: 28 0RF Patient Comments: pt. states he thinks he is on this for a UTI also tramadol 50 mg tablet 50 mg PO Q6H PRN (Reason: pain) Qty: 12 0RF Rx Instructions: may take along with NSAIDS/Tylenol ascorbic acid (vitamin C) [Vitamin C] 500 mg tablet See Rx Instructions .ROUTE .COMPLEX Qty: 120 11RF Dose Instruction: TAKE 1 TABLET BY MOUTH FOUR TIMES A DAY Rx Instructions: TAKE 1 TABLET BY MOUTH FOUR TIMES A DAY nystatin 100,000 unit/gram powder 1 applic topical BID Qty: 60 4RF cephalexin 250 mg capsule 250 mg PO DAILY Patient Comments: pt. reports he is taking for a UTI sildenafil [Viagra] 100 mg tablet 100 mg PO DAILY PRN (Reason: sexual activity) Rx Instructions: administer 30 minutes to 4 hours before activity. Call [employer] for credit card number. He knows its self pay methenamine hippurate [Hiprex] 1 gram tablet 1 g PO TID lorazepam [Ativan] 1 mg tablet 1 mg PO TID MDD 3 mg cholecalciferol (vitamin D3) [Vitamin D3] 25 mcg (1,000 unit) tablet 1,000 units PO DAILY Phlexy-Vits Powder In Packet 1 packet PO TID Qty: 90 0RF Myrbetriq 25 mg Tablet Extended Release 24 Hr 25 mg PO DAILY Qty: 30 0RF Patient Comments: pt. reports he probably took yesterday acetaminophen [Tylenol] 325 mg tablet 650 mg PO Q6H PRN PRN (Reason: fever or pain) Qty: 30 0RF docusate sodium [Colace] 100 mg capsule 100 mg PO TID Qty: 90 0RF multivitamin,tx-minerals Tablet 1 tab PO DAILY Qty: 30 0RF senna 8.6 mg capsule 17.2 mg PO BID Qty: 120 0RF Lactobacillus acidoph-L.bulgar [Floranex] 1 million cell tablet 1 tab PO TID Qty: 90 0RF Mag-Delay 64 mg tablet,delayed release (DR/EC) 128 mg PO BID HPI General Date/Time Provider Initiated Documentation: 07/28/23 18:51 . HPI Narrative: HPI This is a 58-year-old male with a history of quadriplegia urinary tract infections Beck catheter arrived to the emergency department via paramedics in the setting of subjective chills fevers bloating and abdominal discomfort 1 day status post bladder stone removal. Patient reports that he was seen by his care provider today who was concerned that he was sweating and he had chills. He has had left-sided intermittent sharp chest pain. He has not had any syncopal episodes. He has had no recent falls. He denies routine tobacco, ethanol, and illicits. He feels that he has increasing abdominal girth. He reports he has had markedly decreased appetite since his procedure. No change in output from his ostomy. Exam General: Chronically ill mildly diaphoretic.-appearing in no acute distress speaking in complete sentences. Head: Normocephalic, atraumatic. Eye: Extraocular eye movements intact. No conjunctival injection. No scleral icterus. Ear, nose, mouth, throat: Grossly normal inspection. Normal voice, handling secretions normally. Neck: Trachea midline. Cardiovascular: Well-perfused distal extremities. Regular rate and rhythm. Chest wall: Left-sided chest wall port in place. No significant erythema nor fluctuance. Respiratory: Nonlabored respiration. Decreased breath sounds bilateral bases. Gastrointestinal: Nondistended abdomen. Ostomy bag in place with brown stool. Ostomy site appears pink. Generalized abdominal tenderness. No rebound. : Beck catheter draining yellow urine. Musculoskeletal: No significant lower extremity edema. Right foot with abrasion plantar aspect. Left foot with several superficial abrasions near and below great toe on left. Skin: Normal for age and race, grossly normal temperature and turgor. No acute rash. Neurologic: Alert and appropriate, no apparent acute deficits. GCS 15. Psychiatric: Mood and manner are appropriate. Grooming and personal hygiene are appropriate. MDM This is a hypotensive but normothermic and not tachycardic 58-year-old male with and neurogenic bladder quadriplegia generalized abdominal tenderness and recent instrumentation 2 days ago in setting of bladder stones concerning for sepsis from a urinary source. Patient is markedly hypotensive on arrival and patient certainly could have some autonomic instability given his quadriplegia. He is not on outpatient steroids to suggest benefit from stress dose hydrocortisone. No hypoxia however will obtain a chest x-ray. Will obtain blood cultures lactate and treat with piperacillin tazobactam and vancomycin empirically. Patient does have left-sided tunneling decubitus ulcer concerning for the possib ility of infection. Concerning the patient's chest pain it is not tearing to suggest aortic dissection. No trauma to the chest so doubt pneumothorax. Pneumonia is certainly a possibility given that the patient is a Quadriplegic. We will access chest wall port. Given abdominal tenderness and recent operative intervention for bladder stones will obtain CT abdomen pelvis. CODE STATUS Per palliative care is a DNI DNR. Urinary tract infection certainly in the differential. Patient is not altered to suggest meningitis I do not feel that he requires an LP. We will send influenza COVID RSV swab. Will obtain plain film of right foot given plantar abrasion. We will sign patient out to oncoming ED provider Dr. Phan. At the time of signout patient's MAP was 66 mmHg so I did not start peripheral pressors. Chronic conditions affecting the care of the patient: Quadriplegia, neurogenic bladder History obtained from an outside historian: Paramedics [place] [facility] [place] [Diagnostic interpretations performed by me:] [Per my independent interpretation chest x-ray shows:] [Per my independent interpretation EKG shows:] Normal sinus rhythm at a rate of 82 with interventricular conduction delay. Left axis deviation and incomplete right bundle branch block. Mild upsloping ST segment slightly more pronounced in inferior leads compared to prior. Persistent T wave inversion in aVL. Medications: Antibiotics and 1 L IV fluids Social determinants of health affecting disposition: N/A Management discussed with: Dr. Phan Treatment/interventions considered: N/A Response to therapies provided: N/A Related Data Home Medications Medication Instructions Recorded Confirmed Lactobacillus acidoph-L.bulgaricus 1 tab PO TID #90 tabs 01/08/22 07/27/23 1 million cell tablet (Floranex) acetaminophen 325 mg tablet 650 mg PO Q6H PRN PRN fever or 03/09/22 09/25/23 (Tylenol) pain #30 tabs docusate sodium 100 mg capsule 100 mg PO TID #90 caps 01/08/22 07/27/23 (Colace) mirabegron 25 mg tablet,extended 25 mg PO DAILY #30 tabs 01/08/22 07/27/23 release 24 hr (Myrbetriq) multivitamin,tx-minerals 1 tab PO DAILY #30 tabs 01/08/22 07/27/23 nutritional supplements 1 packet PO TID #90 ea 01/08/22 07/27/23 (Phlexy-Vits) sennosides 8.6 mg capsule (senna) 17.2 mg PO BID #120 caps 01/08/22 07/27/23 magnesium chloride 64 mg 128 mg PO BID 02/24/22 07/27/23 (magnesium chloride) tablet,delayed release (Mag-Delay) nystatin 100,000 unit/gram topical 1 applic topical BID #60 grams 09/29/22 07/27/23 powder baclofen 20 mg tablet 60 mg PO TID #270 tabs 02/27/23 07/27/23 diclofenac sodium 1 % topical gel 4 g topical QID PRN muscle pain 02/27/23 07/27/23 (Voltaren Arthritis Pain) #100 grams divalproex 250 mg tablet,extended 250 mg PO HS #90 tabs 05/26/23 07/27/23 release 24 hr (Depakote ER) amoxicillin 500 mg tablet 500 mg PO QID #28 tabs 05/27/23 07/27/23 ascorbic acid (vitamin C) 500 mg See Rx Instructions .Route 07/09/23 07/27/23 tablet (Vitamin C) .COMPLEX #120 tabs cephalexin 250 mg capsule 250 mg PO DAILY 07/24/23 07/27/23 cholecalciferol (vitamin D3) 25 1,000 units PO DAILY 07/24/23 07/27/23 mcg (1,000 unit) tablet (Vitamin D3) lorazepam 1 mg tablet (Ativan) 1 mg PO TID 07/24/23 07/27/23 methenamine hippurate 1 gram 1 g PO TID 07/24/23 07/27/23 tablet (Hiprex) sildenafil 100 mg tablet (Viagra) 100 mg PO DAILY PRN sexual activity 07/24/23 07/27/23 tramadol 50 mg tablet 50 mg PO Q6H PRN pain #12 tabs 07/27/23 07/27/23 Previous Rx's Medication Instructions Recorded Lactobacillus acidoph-L.bulgaricus 1 tab PO TID #90 tabs 01/08/22 1 million cell tablet (Floranex) acetaminophen 325 mg tablet 650 mg PO Q6H PRN PRN fever or 01/08/22 (Tylenol) pain #30 tabs docusate sodium 100 mg capsule 100 mg PO TID #90 caps 01/08/22 (Colace) mirabegron 25 mg tablet,extended 25 mg PO DAILY #30 tabs 01/08/22 release 24 hr (Myrbetriq) multivitamin,tx-minerals 1 tab PO DAILY #30 tabs 01/08/22 nutritional supplements 1 packet PO TID #90 ea 01/08/22 (Phlexy-Vits) sennosides 8.6 mg capsule (senna) 17.2 mg PO BID #120 caps 01/08/22 nystatin 100,000 unit/gram topical 1 applic topical BID #60 grams 09/29/22 powder baclofen 20 mg tablet 60 mg PO TID #270 tabs 02/27/23 diclofenac sodium 1 % topical gel 4 g topical QID PRN muscle pain 02/27/23 (Voltaren Arthritis Pain) #100 grams divalproex 250 mg tablet,extended 250 mg PO HS #90 tabs 05/26/23 release 24 hr (Depakote ER) amoxicillin 500 mg tablet 500 mg PO QID #28 tabs 05/27/23 ascorbic acid (vitamin C) 500 mg See Rx Instructions .Route 07/09/23 tablet (Vitamin C) .COMPLEX #120 tabs tramadol 50 mg tablet 50 mg PO Q6H PRN pain #12 tabs 07/27/23 Allergies Allergy/AdvReac Type Severity Reaction Status Date / Time No Known Allergies Allergy Verified 07/27/23 08:28 General Stated Complaint: Chest Pain LU: 2 PFSH All Active Problems (Updated 07/28/23 @ 19:16 by Lauri Soto MD) Abrasion of foot, right (Acute) Anxiety disorder (Acute) History of UTI (Acute) Palliative care patient (Acute) Neck pain (Acute) Decubitus skin ulcer (Acute) Insomnia (Acute) Constipation due to neurogenic bowel (Acute) Chronic recurrent multifocal osteomyelitis (Chronic) Acute osteomyelitis of sacrum (Chronic) Major depressive disorder (Chronic) Neurogenic bladder (Chronic) Quadriplegia (Chronic) Medical History Acute embolism and thrombosis of deep vein of right lower extremity DIAMOND (acute kidney injury) Aspiration into airway Bronchospasm C. difficile colitis Constipation Decubitus ulcer of buttock, stage 4 Dislocation of C6/C7 cervical vertebrae DNR (do not resuscitate) DVT (deep venous thrombosis) DVT prophylaxis Encounter for wound care Fall down embankment Fusion of spine H/O deep venous thrombosis Hypokalemia Hypotension Ileus Insomnia Iron deficiency anemia Large bowel obstruction Low magnesium level Malnutrition following gastrointestinal surgery Muscle spasm Neurogenic bowel Open wound of abdominal wall Physician orders for life-sustaining treatment (POLST) form indicates patient wish for es-agc-jguedndkyfy status Right arm pain Visit for wound check Weight gain Surgical History History of infusaport central venous catheter insertion S/P colostomy Suprapubic catheter Social History Smoking/Tobacco Use Status: Never Smoking risk assessment performed?: Yes Alcohol Intake: current Alcohol Intake frequency: holidays/special occasions only Drug use: Daily Substance use type: marijuana Details: marijuana: smoking, t-1, a bowl Housing: house Do you feel safe at home: Yes Do you feel safe in your relationship?: Yes Additional Social history: Rents room, has assistance at home; caregiver is [place] Vital Signs Vital signs: Vital Signs Temperature 36.8 C 07/28/23 18:44 Pulse 78 07/28/23 18:44 Respiratory Rate 18 07/28/23 18:44 Blood Pressure 71/41 L 07/28/23 18:44 Temperature 36.8 C 07/28/23 18:44 Temperature Source Oral 07/28/23 18:44 Pulse 78 07/28/23 18:44 Respiratory Rate 18 07/28/23 18:44 Blood Pressure 71/41 L 07/28/23 18:44 Blood Pressure Position Supine 07/28/23 18:44 Oxygen Delivery Method Room Air 07/28/23 18:44 Oxygen Flow Rate 0 07/28/23 18:44 Pain Level 0 07/28/23 18:44
--- NOTE | 2023-07-28 19:15 | DI.RAD_ITS ---
Exam(s) XR FOOT RT COMPLETE EXAM: XR FOOT RT COMPLETE CLINICAL HISTORY: Abrasion plantar aspect. TECHNIQUE: 2D digital imaging was performed of the right foot. Three images were obtained. AP, obl ique and lateral views were obtained. COMPARISON: CR,XR XR FOOT RT COMPLETE from 11/09/2021 FINDINGS: BONES: Since the prior examination is been partial resection of the 5th metatarsal bone. The bones a re diffusely osteopenic. There are hammertoe deformities of the 2nd through 5th toes. No bony destr uctive lesion is seen. JOINTS: No dislocation present. SOFT TISSUE: There is diffuse soft tissue swelling of the foot. No radiopaque foreign bodies are lyssa ntified. IMPRESSION: 1. No acute fracture or dislocation. However, evaluation is limited by the diffuse severe osteopenia . If there is continued clinical concern, a CT scan may be considered. 2. Postsurgical changes of the 5th metatarsal. DATA REPOSITORY: RADIATION DOSE DELIVERED:
[2023-07-28 19:27] LABS: Abs Immature Grans 0.03 10^3/uL (0.0-0.06); Absolute Basophil Count 0.04 10^3/uL (0.0-0.2); Absolute Eosinophil Count 0.22 10^3/uL (0.0-0.7); Absolute Lymphocyte Count 1.67 10^3/uL (1.2-3.4); Absolute Monocyte Count 0.75 10^3/uL (0.1-0.8); Absolute Neutrophil Count 6.11 10^3/uL (1.2-6.7); Basophils % 0.5; Eosinophils % 2.5; HCT 38.8 % (40.0-50.0); HGB 12.8 g/dL (13.5-17.5); Immature Grans % 0.3; Lymphocytes % 18.9; MCV 88 fL (80-95); MPV 11.5 fL (8.0-11.0); Monocytes % 8.5; Neutrophils % 69.3; Platelet Count 159 10^3/uL (130-400); RBC 4.41 10^6/uL (4.36-5.78); RDW 13.6 % (11.8-14.1); RDW-SD 44.1 fL; WBC 8.82 10^3/uL (4.4-10.8)
[2023-07-28] MEDS: PIPERACILLIN/TAZO 3.375 GM in Normal Saline 50 ML IVPB (19:36)
[2023-07-28] MEDS: Normal Saline 1,000 ML 1000 ML IV (19:37)
[2023-07-28 19:46] LABS: ALT 42 U/L (16-63); AST 29 U/L (15-37); Albumin 3.1 g/dL (3.4-5.0); Alkaline Phosphatase 84 U/L (46-116); Anion Gap 8.7 mmol/L (3-11); BUN 21 mg/dL (7-18); Bilirubin, Total 0.4 mg/dL (0.2-1.0); CO2 28.3 mmol/L (21.0-32.0); Calcium 9.5 mg/dL (8.5-10.1); Chloride 103 mmol/L (98-107); Creatine Kinase 236 U/L (39-308); Estimated GFR 88.33 (mL/min/1.73m2); Glucose 111 mg/dL (74-106); Potassium 4.1 mmol/L (3.5-5.1); Sodium 140 mmol/L (136-145); Troponin I < 50 ng/L (<or=60)
[2023-07-28] MEDS: Omnipaque 350 MG/ML 100 ML BTL IJ (20:08)
[2023-07-28] MEDS: Normal Saline Flush 10 ML SYR IVP (20:09)
[2023-07-28] MEDS: Normal Saline - Diluent 50 ML VIAL IJ (20:09)
[2023-07-28 20:13] LABS: COVID-19 PCR Negative (Negative); Influenza A PCR Negative (Negative); Influenza B PCR Negative (Negative); RSV PCR Negative (Negative)
[2023-07-28 20:15] LABS: Source Nasopharynx
[2023-07-28 21:13] LABS: Bilirubin Small (Negative); Blood Large (Negative); Clarity Turbid (Clear); Glucose Negative (Negative); Ketones Negative (Negative); Leukocyte Esterase Small (Negative); Nitrite Positive (Negative); Specific Gravity 1.025 (1.005-1.025); Urobilinogen 0.2 mg/dL (Up to 0.2)
[2023-07-28 21:21] LABS: C & S Indicated? Yes; RBC >50 HPF (0-2)
--- NOTE | 2023-07-28 21:21 | DI.VRAD_ITS ---
PROCEDURE INFORMATION: Exam: CT Abdomen And Pelvis With Contrast Exam date and time: 07/28/2023 8:28 PM Age: 58 years old Clinical indication: Abdominal pain; Prior surgery; Surgery date: 3-7 days post-operative; Surgery type: Gallbladder vacuumed per PT on Thursday. HX of colostomy and suprapubic cath; Patient HX: Generalized tenderness TECHNIQUE: Imaging protocol: Computed tomography of the abdomen and pelvis with contrast. Radiation optimization: All CT scans at this facility use at least one of these dose optimization techniques: automated exposure control; mA and/or kV adjustment per patient size (includes targeted exams where dose is matched to clinical indication); or iterative reconstruction. Contrast material: OMNIPAQUE 350; Contrast volume: 100 ml; Contrast route: INTRAVENOUS (IV); COMPARISON: MR PELVIS WO/W 07/07/2023 10:36 AM FINDINGS: Tubes, catheters and devices: Suprapubic catheter in place. There is small amount of gas surrounding the Beck catheter balloon. Lungs: Left lower lobe infiltrate Liver: Normal. No mass. Gallbladder and bile ducts: Normal. No calcified stones. No ductal dilation. Pancreas: Normal. No ductal dilation. Spleen: Normal. No splenomegaly. Adrenal glands: Normal. No mass. Kidneys and ureters: Nonobstructing calculi in the right kidney. Stomach and bowel: Colostomy in the left lower quadrant. Large amount of debris within the stomach. Appendix: No evidence of appendicitis. Intraperitoneal space: Unremarkable. No free air. No significant fluid collection. Vasculature: Unremarkable. No abdominal aortic aneurysm. Lymph nodes: Unremarkable. No enlarged lymph nodes. Urinary bladder: Unremarkable as visualized. Reproductive: Calcification of the central prostate gland. Bones/joints: Multilevel degenerative change. Findings most pronounced at the L4-L5 and L5/S1 levels. Calcification in the right hip joint. Soft tissues: Unremarkable. IMPRESSION: 1. No evidence of cholelithiasis or ductal dilatation. 2. Colostomy in the left lower quadrant. 3. Suprapubic catheter in place. There is a small amount air surrounding the Beck catheter balloon. 4. Degenerative changes of the lumbosacral spine and right hip joint. 5. Nonobstructing calculi in the right kidney. Dictated and Authenticated by: Charley Spears MD. Ordering:CLAUDIA Carreon MD
--- NOTE | 2023-07-28 21:22 | DI.VRAD_ITS ---
PROCEDURE INFORMATION: Exam: XR Chest Exam date and time: 07/28/2023 8:43 PM Age: 58 years old Clinical indication: Shortness of breath; Prior surgery; Surgery date: 6+ months; Surgery type: Port TECHNIQUE: Imaging protocol: Radiologic exam of the chest. Views: 1 view. COMPARISON: CR XR PORTABLE CHEST AP 05/17/2023 9:15 AM FINDINGS: Lungs: Unremarkable. No consolidation. Pleural spaces: Unremarkable. No pleural effusion. No pneumothorax. Heart/Mediastinum: Unremarkable. No cardiomegaly. Bones/joints: Unremarkable. IMPRESSION: No acute findings. Left Infusaport catheter in satisfactory position. Dictated and Authenticated by: Charley Spears MD. Ordering:CLAUDIA Carreon MD
--- NOTE | 2023-07-28 21:24 | DI.VRAD_ITS ---
PROCEDURE INFORMATION: Exam: XR Right Foot Exam date and time: 07/28/2023 8:37 PM Age: 58 years old Clinical indication: Injury or trauma; Other: Hit foot on something; Injury date: Unknown; Injury details: Abrasion plantar aspect TECHNIQUE: Imaging protocol: Radiologic exam of the right foot. Views: 3 or more views. COMPARISON: CR XR FOOT RT COMPLETE 11/09/2021 5:31 PM FINDINGS: Bones/joints: Postop amputation change of the 5th metatarsal bone. Osteopenia. Evaluation for fracture is severely limited due to the osteopenia. CT is recommended for better evaluation Soft tissues: Normal. IMPRESSION: 1. Severe osteopenia likely related to disuse. Evaluation for fracture of the tarsal bones is limited due to the osteopenia. CT is recommended for better evaluation. 2. Postop amputation change of the 5th metatarsal bone Dictated and Authenticated by: Charley Spears MD. Ordering:CLAUDIA Carreon MD
--- NOTE | 2023-07-28 21:37 | ED.PROG_ITS ---
Date of service: 07/28/23 Time of Service: 21:37 Medical Decision Making Patient was signed out to me by my colleague Dr. Soto pending labs and imaging results. Patient's blood pressure was slightly labile but it remained in a hypotensive state. Patient continues to state he is does not feel well. Laboratory work-up is certainly an interesting juxtaposition of different values. He has a normal white count, with no bandemia or left shift. He has a normal lactate, electrolytes normal. Urinalysis does show positive nitrates, leuk esterase, as well as RBCs and WBCs. Procalcitonin is notably elevated at 3.3 increasing the concern for septic picture. Heart rate remained stable but blood pressure remains low. Dr. Soto had already started broad-spectrum antibiotics of vancomycin and Zosyn. Concerning source is the urine especially secondary to recent instrumentation. CT scan is negative for acute component or process. We discussed risks and benefits of admission and transfer. Currently no beds are available at [facility]. Patient refuses to be transferred to any other facility. He refuses to go to [facility] or [facility]. I did contact his locations anyway and they are full at this time. I discussed risks and benefits of staying. At this time patient makes clear that he will either go home or just stay here in a closet until something opens up. I did talk with nursing scrap preparation supervisor and we do have some expected discharges tomorrow. Additionally the ICU has 3 patients that can be transferred out if [facility] beds become available. We will keep the patient here in the ED for the time being. We will place the patient on Levophed for his persistent hypotension. I have placed an arterial line for continued blood pressure monitoring. He does have his port, and so no central line needed at this time. Discussed the case with hospitalist Dr. Mendez. He agrees with the assessment and plan. I have extensively reviewed the treatment plan with the patient. I have addressed all patient concerns at this time. I have also discussed the plan with the admitting physician and they agree with the current assessment and plan and have agreed to assume responsibility for the patient. All parties demonstrate verbal understanding and agreement with our assessment and plan at this time. The documentation in this chart was dictated using xzoops dictation software. Please excuse any dictation errors. FINDINGS: Tubes, catheters and devices: Suprapubic catheter in place. There is small amount of gas surrounding the Beck catheter balloon. Lungs: Left lower lobe infiltrate Liver: Normal. No mass. Gallbladder and bile ducts: Normal. No calcified stones. No ductal dilation. Pancreas: Normal. No ductal dilation. Spleen: Normal. No splenomegaly. Adrenal glands: Normal. No mass. Kidneys and ureters: Nonobstructing calculi in the right kidney. Stomach and bowel: Colostomy in the left lower quadrant. Large amount of debris within the stomach. Appendix: No evidence of appendicitis. Intraperitoneal space: Unremarkable. No free air. No significant fluid collection. Vasculature: Unremarkable. No abdominal aortic aneurysm. Lymph nodes: Unremarkable. No enlarged lymph nodes. Urinary bladder: Unremarkable as visualized. Reproductive: Calcification of the central prostate gland. Bones/joints: Multilevel degenerative change. Findings most pronounced at the L4-L5 and L5/S1 levels. Calcification in the right hip joint. Soft tissues: Unremarkable. IMPRESSION: 1. No evidence of cholelithiasis or ductal dilatation. 2. Colostomy in the left lower quadrant. 3. Suprapubic catheter in place. There is a small amount air surrounding the Beck catheter balloon. 4. Degenerative changes of the lumbosacral spine and right hip joint. 5. Nonobstructing calculi in the right kidney. Thank you for allowing us to participate in the care of your patient. Dictated and Authenticated by: Charley Spears DO 07/28/2023 9:20 PM Eastern Time ([place] & [place]) CR XR FOOT RT COMPLETE 11/09/2021 5:31 PM FINDINGS: Bones/joints: Postop amputation change of the 5th metatarsal bone. Osteopenia. Evaluation for fracture is severely limited due to the osteopenia. CT is recommended for better evaluation Soft tissues: Normal. IMPRESSION: 1. Severe osteopenia likely related to disuse. Evaluation for fracture of the tarsal bones is limited due to the osteopenia. CT is recommended for better evaluation. 2. Postop amputation change of the 5th metatarsal bone Thank you for allowing us to participate in the care of your patient. Dictated and Authenticated by: Charley Spears DO 07/28/2023 9:23 PM Eastern Time ([place] & [place]) FINDINGS: Lungs: Unremarkable. No consolidation. Pleural spaces: Unremarkable. No pleural effusion. No pneumothorax. Heart/Mediastinum: Unremarkable. No cardiomegaly. Bones/joints: Unremarkable. IMPRESSION: No acute findings. Left Infusaport catheter in satisfactory position. Thank you for allowing us to participate in the care of your patient. Dictated and Authenticated by: Charley Spears DO 07/28/2023 9:21 PM Eastern Time ([place] & [place]) Critical Care Time Critical Care Time Critical Care Time: Yes Total Critical Care Time: 45 Attestation: Upon my evaluation, this patient had a high probability of imminent or life- threatening deterioration, which required my direct attention, intervention, and personal management. I have personally provided 45 minutes of critical care time exclusive of time spent on separately billable procedures. Time includes review of laboratory data, radiology results, discussion with consultants, and monitoring for potential decompensation. Interventions were performed as documented. Discharge Plan Discharge Details Chief Complaint: Chest Pain Clinical Impression: Decubitus skin ulcer, Abrasion of foot, right, Urinary tract infection, Septic shock Primary Care Provider: Genevieve Baez ED Provider: Emanuel Phan Home Meds and New Rx's Prescriptions: No Action baclofen 20 mg tablet 60 mg PO TID Qty: 270 6RF diclofenac sodium [Voltaren Arthritis Pain] 1 % gel 4 g topical QID PRN (Reason: muscle pain) Qty: 100 5RF Rx Instructions: apply to painful muscles divalproex [Depakote ER] 250 mg tablet extended release 24 hr 250 mg PO HS Qty: 90 4RF amoxicillin 500 mg tablet 500 mg PO QID Qty: 28 0RF Patient Comments: pt. states he thinks he is on this for a UTI also tramadol 50 mg tablet 50 mg PO Q6H PRN (Reason: pain) Qty: 12 0RF Rx Instructions: may take along with NSAIDS/Tylenol ascorbic acid (vitamin C) [Vitamin C] 500 mg tablet See Rx Instructions .ROUTE .COMPLEX Qty: 120 11RF Dose Instruction: TAKE 1 TABLET BY MOUTH FOUR TIMES A DAY Rx Instructions: TAKE 1 TABLET BY MOUTH FOUR TIMES A DAY nystatin 100,000 unit/gram powder 1 applic topical BID Qty: 60 4RF cephalexin 250 mg capsule 250 mg PO DAILY Patient Comments: pt. reports he is taking for a UTI sildenafil [Viagra] 100 mg tablet 100 mg PO DAILY PRN (Reason: sexual activity) Rx Instructions: administer 30 minutes to 4 hours before activity. Call Favio for credit card number. He knows its self pay methenamine hippurate [Hiprex] 1 gram tablet 1 g PO TID lorazepam [Ativan] 1 mg tablet 1 mg PO TID MDD 3 mg cholecalciferol (vitamin D3) [Vitamin D3] 25 mcg (1,000 unit) tablet 1,000 units PO DAILY Phlexy-Vits Powder In Packet 1 packet PO TID Qty: 90 0RF Myrbetriq 25 mg Tablet Extended Release 24 Hr 25 mg PO DAILY Qty: 30 0RF Patient Comments: pt. reports he probably took yesterday acetaminophen [Tylenol] 325 mg tablet 650 mg PO Q6H PRN PRN (Reason: fever or pain) Qty: 30 0RF docusate sodium [Colace] 100 mg capsule 100 mg PO TID Qty: 90 0RF multivitamin,tx-minerals Tablet 1 tab PO DAILY Qty: 30 0RF senna 8.6 mg capsule 17.2 mg PO BID Qty: 120 0RF Lactobacillus acidoph-L.bulgar [Floranex] 1 million cell tablet 1 tab PO TID Qty: 90 0RF Mag-Delay 64 mg tablet,delayed release (DR/EC) 128 mg PO BID
[2023-07-28 21:55] LABS: Troponin I < 50 ng/L (<or=60)
[2023-07-28 22:28] LABS: Procalcitonin 3.3 ng/mL
[2023-07-28] MEDS: Norepinephrine in D5W 8 MG/250 ML BAG 9.375 MG IV (23:53)
[2023-07-29] VITALS (137 sets, daily range): BP systolic 62–266; BP diastolic 49–127; PULSE 38–110; RESP 12–38; TEMP 37.4–37.6; O2SAT 83–99
[2023-07-29] MEDS: traMADol 50 MG TAB PO ×3 (00:46→23:47)
[2023-07-29] MEDS: LORazepam 1 MG TAB PO ×4 (00:46→20:30)
[2023-07-29] MEDS: Mirabegron 25 MG TABCR PO ×2 (01:04→23:45)
[2023-07-29] MEDS: Baclofen 10 MG TAB 20 MG PO (01:04)
--- NOTE | 2023-07-29 01:23 | HPE_ITS ---
Date of service: 07/29/23 Time of Service: Assessment and Plan Assessment and plan (1) Septic shock: Status: Acute Assessment and plan: Rough diagnosis here is urosepsis, manifesting with chills and hypotension, with elevated Procal, but there are some notably atypical features here as well, in cluding lack of leukocytosis or left shift; normal lactate; and lability of blood pressure (dysautonomia may be playing a role here, and patient states that his BP is always labile). Note also that we do not have a definite read on urine as field is packed with RBC, but suffice to say no other source of infection evident and recent instrumentation makes this a priori a suspect site. For now I think the wisest course is to continue to treat as early sepsis, with aggressive IVF and pressor support as needed, along with broad spectrum antibiotics until culture results available. Given lack of beds plan is to keep patient in ER until bed available in ICU. As per prior patient remains DNR History of Present Illness History of Present Illness Chief Complaint: chills Narrative: 58 male paraplegic with suprapubic tube, h/o bladder stones. 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 Verbal report from ER is of hypotension in the field. Here in ER initial findings of note for BP 71/sys, white count 8.8 w/o shift; lactate 1.1, Procal 3.3; CT chest and abdomen unrevealing; Urinalysis + leuk esterase but micro obscured by packed field RBC. Blood cultures obtained and patient given doses Vanco and Zosyn. Given 2 L NS and started on Levophed qtt, and A- line inserted. I was asked to evaluate for admission. Note that we have no beds and patient refused transfer to any other facility. Review of Systems Narrative: per HPI PFSH All Active Problems Abrasion of foot, right (Acute) Urinary tract infection (Acute) Septic shock (Acute) Anxiety disorder (Acute) History of UTI (Acute) Palliative care patient (Acute) Neck pain (Acute) Decubitus skin ulcer (Acute) Insomnia (Acute) Constipation due to neurogenic bowel (Acute) Chronic recurrent multifocal osteomyelitis (Chronic) Acute osteomyelitis of sacrum (Chronic) Major depressive disorder (Chronic) Neurogenic bladder (Chronic) Quadriplegia (Chronic) Medical History Acute embolism and thrombosis of deep vein of right lower extremity DIAMOND (acute kidney injury) Aspiration into airway Bladder stones Bronchospasm C. difficile colitis Constipation Decubitus ulcer of buttock, stage 4 Dislocation of C6/C7 cervical vertebrae DNR (do not resuscitate) DVT (deep venous thrombosis) DVT prophylaxis Encounter for wound care Fall down embankment Fusion of spine H/O deep venous thrombosis Hypokalemia Hypotension Ileus Insomnia Iron deficiency anemia Large bowel obstruction Low magnesium level Malnutrition following gastrointestinal surgery Muscle spasm Neurogenic bowel Open wound of abdominal wall Physician orders for life-sustaining treatment (POLST) form indicates patient wish for si-nry-obdzcmrotbb status Right arm pain Visit for wound check Weight gain Surgical History History of infusaport central venous catheter insertion S/P colostomy Suprapubic catheter Social History Smoking/Tobacco Use Status: Never Smoking risk assessment performed?: Yes Alcohol Intake: current Alcohol Intake frequency: holidays/special occasions only Drug use: Daily Substance use type: marijuana Details: marijuana: smoking, t-1, a bowl Housing: house Do you feel safe at home: Yes Do you feel safe in your relationship?: Yes Additional Social history: Rents room, has assistance at home; caregiver is Cary Meds Allergies and Home Medications Allergies Allergy/AdvReac Type Severity Reaction Status Date / Time No Known Allergies Allergy Verified 07/29/23 00:07 Home Medications Medication Instructions Recorded Confirmed Type Lactobacillus acidoph-L.bulgaricus 1 tab PO TID #90 tabs 01/08/22 07/29/23 Rx 1 million cell tablet (Floranex) acetaminophen 325 mg tablet 650 mg PO Q6H PRN PRN fever or 01/08/22 07/29/23 Rx (Tylenol) pain #30 tabs docusate sodium 100 mg capsule 100 mg PO TID #90 caps 01/08/22 07/29/23 Rx (Colace) mirabegron 25 mg tablet,extended 25 mg PO DAILY #30 tabs 01/08/22 07/29/23 Rx release 24 hr (Myrbetriq) multivitamin,tx-minerals 1 tab PO DAILY #30 tabs 01/08/22 07/29/23 Rx nutritional supplements 1 packet PO TID #90 ea 01/08/22 07/29/23 Rx (Phlexy-Vits) sennosides 8.6 mg capsule (senna) 17.2 mg PO BID #120 caps 01/08/22 07/29/23 Rx magnesium chloride 64 mg 128 mg PO BID 02/24/22 07/29/23 History (magnesium chloride) tablet,delayed release (Mag-Delay) nystatin 100,000 unit/gram topical 1 applic topical BID #60 grams 09/29/22 07/29/23 Rx powder baclofen 20 mg tablet 60 mg PO TID #270 tabs 02/27/23 07/29/23 Rx diclofenac sodium 1 % topical gel 4 g topical QID PRN muscle pain 02/27/23 07/29/23 Rx (Voltaren Arthritis Pain) #100 grams divalproex 250 mg tablet,extended 250 mg PO HS #90 tabs 05/26/23 07/29/23 Rx release 24 hr (Depakote ER) amoxicillin 500 mg tablet 500 mg PO QID #28 tabs 05/27/23 07/29/23 Rx ascorbic acid (vitamin C) 500 mg See Rx Instructions .Route 07/09/23 07/29/23 Rx tablet (Vitamin C) .COMPLEX #120 tabs cephalexin 250 mg capsule 250 mg PO DAILY 07/24/23 07/29/23 History cholecalciferol (vitamin D3) 25 1,000 units PO DAILY 07/24/23 07/29/23 History mcg (1,000 unit) tablet (Vitamin D3) lorazepam 1 mg tablet (Ativan) 1 mg PO TID 07/24/23 07/29/23 History methenamine hippurate 1 gram 1 g PO TID 07/24/23 07/29/23 History tablet (Hiprex) sildenafil 100 mg tablet (Viagra) 100 mg PO DAILY PRN sexual activity 07/24/23 07/29/23 History tramadol 50 mg tablet 50 mg PO Q6H PRN pain #12 tabs 07/27/23 07/29/23 Rx Exam Narrative Exam Narrative: On initial exam BP 118/121. Levophed held and BP settled into 100-120/sys range; pulse 56; 36.8, 26, 94% RA. HEENT atraumatic; neck supple; lungs clear; chest shows port left upper chest w/o redness or D./C; heart RRR; abdomen soft and NT, ostomy with brown stool, SPT in place w/o d/c around tube; extremities trace pedal edema; neuro Ox3, lucid, paraplegic Results Labs 07/28/23 19:20 07/28/23 19:20 Labs: Laboratory Results - last 24 hr 07/28/23 07/28/23 07/28/23 19:20 19:20 19:20 WBC 8.82 RBC 4.41 Hgb 12.8 L Hct 38.8 L MCV 88 MCH 29.0 MCHC 33.0 RDW 13.6 Plt Count 159 MPV 11.5 H Immature Gran % 0.3 Neutrophils % 69.3 Lymphocytes % 18.9 Monocytes % 8.5 Eosinophils % 2.5 Basophils % 0.5 Nucleated RBC % 0.0 Absolute Neutrophils 6.11 Absolute Lymphocytes 1.67 Absolute Monocytes 0.75 Absolute Eosinophils 0.22 Absolute Basophils 0.04 VBG Lactate 1.0 Sodium 140 Potassium 4.1 Chloride 103 Carbon Dioxide 28.3 Anion Gap 8.7 BUN 21 H Creatinine 1.0 Est GFR (CKD-EPI 2020) 88.33 Glucose 111 H Calcium 9.5 Total Bilirubin 0.4 AST 29 ALT 42 Alkaline Phosphatase 84 Creatine Kinase 236 Troponin I < 50 Total Protein 7.0 Albumin 3.1 L Procalcitonin Urine Color Urine Clarity Urine pH Ur Specific [place] Urine Protein Urine Ketones Urine Blood Urine Nitrite Urine Bilirubin Urine Urobilinogen Ur Leukocyte Esterase Urine RBC Urine WBC Ur Epithelial Cells Urine Crystals Urine Bacteria Urine Mucus Ur Culture Indicated? Urine Glucose COVID-19 Source SARS-CoV-2 (PCR) Influenza Type A (PCR) Influenza Type B (PCR) RSV (PCR) 07/28/23 07/28/23 07/28/23 19:26 21:00 21:30 WBC RBC Hgb Hct MCV MCH MCHC RDW Plt Count MPV Immature Gran % Neutrophils % Lymphocytes % Monocytes % Eosinophils % Basophils % Nucleated RBC % Absolute Neutrophils Absolute Lymphocytes Absolute Monocytes Absolute Eosinophils Absolute Basophils VBG Lactate Sodium Potassium Chloride Carbon Dioxide Anion Gap BUN Creatinine Est GFR (CKD-EPI 2020) Glucose Calcium Total Bilirubin AST ALT Alkaline Phosphatase Creatine Kinase Troponin I < 50 Total Protein Albumin Procalcitonin Urine Color Red Urine Clarity Turbid Urine pH 7.0 Ur Specific [place] 1.025 Urine Protein 100 H Urine Ketones Negative Urine Blood Large H Urine Nitrite Positive H Urine Bilirubin Small H Urine Urobilinogen 0.2 Ur Leukocyte Esterase Small H Urine RBC >50 H Urine WBC Not Applicable Ur Epithelial Cells Not Applicable Urine Crystals Not Applicable Urine Bacteria Not Applicable Urine Mucus Not Applicable Ur Culture Indicated? Yes Urine Glucose Negative COVID-19 Source Nasopharynx SARS-CoV-2 (PCR) Negative Influenza Type A (PCR) Negative Influenza Type B (PCR) Negative RSV (PCR) Negative 07/28/23 21:30 WBC RBC Hgb Hct MCV MCH MCHC RDW Plt Count MPV Immature Gran % Neutrophils % Lymphocytes % Monocytes % Eosinophils % Basophils % Nucleated RBC % Absolute Neutrophils Absolute Lymphocytes Absolute Monocytes Absolute Eosinophils Absolute Basophils VBG Lactate Sodium Potassium Chloride Carbon Dioxide Anion Gap BUN Creatinine Est GFR (CKD-EPI 2020) Glucose Calcium Total Bilirubin AST ALT Alkaline Phosphatase Creatine Kinase Troponin I Total Protein Albumin Procalcitonin 3.3 Urine Color Urine Clarity Urine pH Ur Specific [place] Urine Protein Urine Ketones Urine Blood Urine Nitrite Urine Bilirubin Urine Urobilinogen Ur Leukocyte Esterase Urine RBC Urine WBC Ur Epithelial Cells Urine Crystals Urine Bacteria Urine Mucus Ur Culture Indicated? Urine Glucose COVID-19 Source SARS-CoV-2 (PCR) Influenza Type A (PCR) Influenza Type B (PCR) RSV (PCR) Last Vital Signs Temp 36.8 C 07/28/23 18:44 Pulse 56 L 07/29/23 01:01 Resp 26 H 07/29/23 01:02 BP 184/121 H 07/29/23 01:01 Time Spent Time spent with Patient: 55-74 minutes Time was spent: preparing to see the patient(eg.review tests), obtaining and/or reviewing separately otained hiistory, ordering medications,tests, procedures, referring, communicating with other health healthcare corporate account director and indepentently interpreting results
[2023-07-29] MEDS: PIPERACILLIN/TAZO 3.375 GM in Normal Saline 50 ML IVPB ×3 (08:25→21:43)
[2023-07-29 09:15] LABS: Source Nasal/Nares
[2023-07-29] MEDS: Baclofen 10 MG TAB 60 MG PO ×3 (09:44→20:27)
[2023-07-29] MEDS: Magnesium Chloride 64 MG TABCR 128 MG PO ×2 (09:45→20:24)
[2023-07-29] MEDS: Senna TAB 2 TAB PO ×2 (09:45→20:30)
[2023-07-29] MEDS: Docusate Sodium 100 MG CAP PO ×3 (09:47→20:31)
[2023-07-29 09:50] LABS: COVID-19 PCR Negative (Negative)
[2023-07-29] MEDS: VANCOMYCIN/WATER (PEG) 1 GM/200 ML BAG IVPB ×2 (10:42→22:55)
--- NOTE | 2023-07-29 10:57 | NUR.NOTE ---
Nursing Note: This RN assumed care at 10am. Pt in bed and not on pricing analyst. VS updated and arterial line properly calibrated.
--- NOTE | 2023-07-29 11:42 | NUR.NOTE ---
Nursing Note: Pt repositioned in bed with pillows. 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
--- NOTE | 2023-07-29 13:49 | INITIAL_ITS ---
Date of service: 07/29/23 Time of Service: 13:49 Care Management Initial Assmt Initial Assessment REASON FOR HOSPITALIZATION:: Urosepsis. PREVIOUS FUNCTIONAL STATUS/SOCIAL/FAMILY SUPPORTS:: Favio lives in [place] with his caregiver Cary. A lady by the name of Jolynn also resides in the home and Cary provides her care as well. Favio is a quadriplegic and has disability benefits. He has 2 adult children who occasionally visit him. His mom is also a source of support for him but Favio states she currently has Covid so has been unable to visit. CURRENT FUNCTIONAL STATUS:: Favio is lying in bed when CM comes to meet with him. He readily engages in conversation. He shares a Home Health nurse comes by the house regularly and he recently re-engaged with Home Health PT. ADVANCE DIRECTIVES:: COLST on file; DNR/DNI Has patient been provided with info about the portal/API?: Yes Did the patient sign up for the portal?: Yes (Previously enrolled) CODE STATUS:: DNR/DNI INSURANCE COVERAGE / FINANCIAL ISSUES:: Medicare and Medicaid CURRENT HOME/COMMUNITY SERVICES/EQUIPMENT:: HH RN and PT, Palliative Care, motorized wheelchair, christa lift, and hospital bed. PRIMARY CARE PHYSICIAN:: Genevieve Baez MD POTENTIAL DISCHARGE NEEDS:: Follow up with PCP, resumption of HH RN/PT, and plan of care. PATIENT/FAMILY EDUCATION NEEDS:: Review of discharge instructions including medications, limitations and follow up plan of care; discuss Ask Me Three. ANTICIPATED BARRIERS TO DISCHARGE:: None identified at this time. TRANSPORTATION:: [facility] w/c van vs EMS. PLAN:: Favio will likely be discharged home with a resumption of HH RN/PT services when medically cleared by provider. He will follow up with his PCP, community providers and plan of care as instructed. He will either be transported home via EMS vs. w/c van when ready. CM will continue to follow. PFSH All Active Problems Abrasion of foot, right (Acute) Urinary tract infection (Acute) Septic shock (Acute) Anxiety disorder (Acute) History of UTI (Acute) Palliative care patient (Acute) Neck pain (Acute) Decubitus skin ulcer (Acute) Insomnia (Acute) Constipation due to neurogenic bowel (Acute) Chronic recurrent multifocal osteomyelitis (Chronic) Acute osteomyelitis of sacrum (Chronic) Major depressive disorder (Chronic) Neurogenic bladder (Chronic) Quadriplegia (Chronic) Medical History Acute embolism and thrombosis of deep vein of right lower extremity DIAMOND (acute kidney injury) Aspiration into airway Bladder stones Bronchospasm C. difficile colitis Constipation Decubitus ulcer of buttock, stage 4 Dislocation of C6/C7 cervical vertebrae DNR (do not resuscitate) DVT (deep venous thrombosis) DVT prophylaxis Encounter for wound care Fall down embankment Fusion of spine H/O deep venous thrombosis Hypokalemia Hypotension Ileus Insomnia Iron deficiency anemia Large bowel obstruction Low magnesium level Malnutrition following gastrointestinal surgery Muscle spasm Neurogenic bowel Open wound of abdominal wall Physician orders for life-sustaining treatment (POLST) form indicates patient wish for no-hrw-nunnjvdayxw status Right arm pain Visit for wound check Weight gain Surgical History History of infusaport central venous catheter insertion S/P colostomy Suprapubic catheter Social History Smoking/Tobacco Use Status: Never Smoking risk assessment performed?: Yes Alcohol Intake: current Alcohol Intake frequency: holidays/special occasions only Drug use: Daily Substance use type: marijuana Details: marijuana: smoking, t-1, a bowl Housing: house Do you feel safe at home: Yes Do you feel safe in your relationship?: Yes Additional Social history: Rents room, has assistance at home; caregiver is Cary
--- NOTE | 2023-07-29 16:47 | NUR.NOTE ---
Nursing Note: This RN spoke to care team and nursing supervisor pastry about pt's need for going to floor and hospital bed.
[2023-07-29] MEDS: Norepinephrine in D5W 8 MG/250 ML BAG 9.375 MG IV (18:26)
[2023-07-29] MEDS: Ascorbic Acid 500 MG TAB PO (20:31)
[2023-07-29] MEDS: Normal Saline Flush 10 ML SYR IVP (20:31)
[2023-07-29] MEDS: Divalproex Sodium 250 MG TAB.ER.24H PO (23:45)
[2023-07-30] VITALS (58 sets, daily range): BP systolic 76–224; BP diastolic 50–111; PULSE 34–84; RESP 11–25; TEMP 36.3–36.8; O2SAT 92–98
[2023-07-30] MEDS: PIPERACILLIN/TAZO 3.375 GM in Normal Saline 50 ML IVPB ×2 (02:18→08:23)
[2023-07-30] MEDS: Acetaminophen 325 MG TAB 650 MG PO (03:17)
[2023-07-30] MEDS: Normal Saline Flush 10 ML SYR IVP (06:15)
[2023-07-30 07:10] LABS: Lactate 0.6 mmol/L (0.6-1.4)
[2023-07-30 07:24] LABS: HCT 35.6 % (40.0-50.0); HGB 11.8 g/dL (13.5-17.5); MCH 28.9 pg (27.0-33.0); MCHC 33.1 % (32.0-36.0); MCV 87 fL (80-95); MPV 11.2 fL (8.0-11.0); Platelet Count 150 10^3/uL (130-400); RBC 4.08 10^6/uL (4.36-5.78); RDW 13.4 % (11.8-14.1); RDW-SD 42.9 fL; WBC 7.42 10^3/uL (4.4-10.8)
[2023-07-30 07:30] LABS: Magnesium 1.6 mg/dL (1.8-2.4)
[2023-07-30 07:33] LABS: ALT 34 U/L (16-63); AST 17 U/L (15-37); Albumin 2.8 g/dL (3.4-5.0); Alkaline Phosphatase 75 U/L (46-116); Anion Gap 9.2 mmol/L (3-11); BUN 16 mg/dL (7-18); Bilirubin, Total 0.4 mg/dL (0.2-1.0); CO2 25.8 mmol/L (21.0-32.0); CREATININE 0.8 mg/dL (0.70-1.30); Calcium 9.4 mg/dL (8.5-10.1); Chloride 107 mmol/L (98-107); Estimated GFR 103.87 (mL/min/1.73m2); Glucose 95 mg/dL (74-106); Potassium 3.7 mmol/L (3.5-5.1); Sodium 142 mmol/L (136-145); Total Protein 6.5 g/dL (6.4-8.2)
[2023-07-30] MEDS: Magnesium Chloride 64 MG TABCR 128 MG PO (07:36)
[2023-07-30] MEDS: Docusate Sodium 100 MG CAP PO (07:37)
[2023-07-30] MEDS: LORazepam 1 MG TAB PO ×2 (07:37→13:44)
[2023-07-30] MEDS: Multivitamin w/Minerals TAB 1 TAB PO (07:37)
[2023-07-30] MEDS: Senna TAB 2 TAB PO (07:37)
[2023-07-30] MEDS: Baclofen 10 MG TAB 60 MG PO ×2 (07:37→13:44)
[2023-07-30] MEDS: Ascorbic Acid 500 MG TAB PO ×2 (07:37→12:21)
[2023-07-30] MEDS: Bacitracin 1 PACKET (09:59)
[2023-07-30] MEDS: VANCOMYCIN/WATER (PEG) 1 GM/200 ML BAG IVPB (09:59)
[2023-07-30] MEDS: Fosfomycin Tromethamine 3 GM PACKET PO (13:44)
[2023-07-30] MEDS: traMADol 50 MG TAB PO (13:44)
--- NOTE | 2023-07-30 13:52 | DSE_ITS ---
Date of service: 07/30/23 Time of Service: 13:52 DS: Diagnosis Discharge Diagnosis (1) Septic shock: Status: Acute Asessment and Plan: Manifested by chills and hypotension. Elevated procalcitonin. Normal WBC count and normal lactate. An arterial line place, fluids administered and norepinephrine drip initiated in the ED. His blood pressure stabilized and norepinephrine stopped. He does have a baseline volitile BP d/t dysautonomia. Resolved. (2) Urinary tract infection: Status: Acute Asessment and Plan: UA +, culture growing gram positive cocci and gram neg jerrell. Zosyn initiated in the ED. On day of discharge he was administered a dose of fosfomycin. This will be repeated on Thursday, Aug 02. (3) Anxiety disorder: Status: Acute Asessment and Plan: Cont lorazepam. (4) Chronic recurrent multifocal osteomyelitis: Status: Chronic Asessment and Plan: On keflex daily. (5) Neurogenic bladder: Status: Chronic Asessment and Plan: Chronic indwelling suprapubic catheter. Cystoscopy and evacuation of bladder stones performed by Dr Molina on . (6) Quadriplegia: Status: Chronic Asessment and Plan: Has power wheelchair. 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 Discharge Plan Disposition Patient Disposition: Home Condition: Improving Discharge Details Reason For Visit: Urosepsis Admit Date/Time: 07/29/23 01:44 Admit Provider: Omer Mendez Attending Provider: Omer Mendez Primary Care Provider: Genevieve Baez Hospital Course Hospital Course: This 58 yo male paraplegic with suprapubic tube, h/o bladder stones. 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 Verbal report from ER is of hypotension in the field. Here in ER initial findings of note for BP 71/sys, white count 8.8 w/o shift; lactate 1.1, Procal 3.3; CT chest and abdomen unrevealing; Urinalysis + leuk esterase but micro obscured by packed field RBC. Blood cultures obtained and patient given doses Vanco and Zosyn. Given 2 L NS and started on Levophed qtt, and A- line inserted. Hospitalist asked to evaluate for admission. See Diagnosis PCP f/u in 1-2 weeks. Home Meds and New Rx's Prescriptions: New fosfomycin tromethamine 3 gram packet 3 g PO ONCE Qty: 1 0RF Rx Instructions: Take on Thursday 1. Continued baclofen 20 mg tablet 60 mg PO TID Qty: 270 6RF diclofenac sodium [Voltaren Arthritis Pain] 1 % gel 4 g topical QID PRN (Reason: muscle pain) Qty: 100 5RF Rx Instructions: apply to painful muscles divalproex [Depakote ER] 250 mg tablet extended release 24 hr 250 mg PO HS Qty: 90 4RF tramadol 50 mg tablet 50 mg PO Q6H PRN (Reason: pain) Qty: 12 0RF Rx Instructions: may take along with NSAIDS/Tylenol ascorbic acid (vitamin C) [Vitamin C] 500 mg tablet See Rx Instructions .ROUTE .COMPLEX Qty: 120 11RF Dose Instruction: TAKE 1 TABLET BY MOUTH FOUR TIMES A DAY Rx Instructions: TAKE 1 TABLET BY MOUTH FOUR TIMES A DAY nystatin 100,000 unit/gram powder 1 applic topical BID Qty: 60 4RF cephalexin 250 mg capsule 250 mg PO DAILY Patient Comments: pt. reports he is taking for a UTI sildenafil [Viagra] 100 mg tablet 100 mg PO DAILY PRN (Reason: sexual activity) Rx Instructions: administer 30 minutes to 4 hours before activity. Call [facility] for credit card number. He knows its self pay methenamine hippurate [Hiprex] 1 gram tablet 1 g PO TID lorazepam [Ativan] 1 mg tablet 1 mg PO TID MDD 3 mg cholecalciferol (vitamin D3) [Vitamin D3] 25 mcg (1,000 unit) tablet 1,000 units PO DAILY Phlexy-Vits Powder In Packet 1 packet PO TID Qty: 90 0RF Myrbetriq 25 mg Tablet Extended Release 24 Hr 25 mg PO DAILY Qty: 30 0RF Patient Comments: pt. reports he probably took yesterday acetaminophen [Tylenol] 325 mg tablet 650 mg PO Q6H PRN PRN (Reason: fever or pain) Qty: 30 0RF docusate sodium [Colace] 100 mg capsule 100 mg PO TID Qty: 90 0RF multivitamin,tx-minerals Tablet 1 tab PO DAILY Qty: 30 0RF senna 8.6 mg capsule 17.2 mg PO BID Qty: 120 0RF Lactobacillus acidoph-L.bulgar [Floranex] 1 million cell tablet 1 tab PO TID Qty: 90 0RF Mag-Delay 64 mg tablet,delayed release (DR/EC) 128 mg PO BID Discontinued amoxicillin 500 mg tablet 500 mg PO QID Qty: 28 0RF Patient Comments: pt. states he thinks he is on this for a UTI also Discharge Instructions Activity:: Activity as Tolerated Equipment/Supplies:: No Equipment Needed Diet:: As Tolerated Discharge Orders Discharge Orders: Discharge Order (Routine); Ordered 07/30/23 Ordered By: Jose Montoya DS: Summary Time Spent with Patient providing and/or coordinating discharge services: Greater than 30 minutes Status at Discharge Functional status at discharge: wheelchair bound Overall status at discharge: patient is back to baseline Mental Status: mental status grossly normal Speech and Movement: speech clear Mood: congruent mood Affect: normal affect Exam Narrative Exam Narrative: On initial exam BP 118/121. Levophed held and BP settled into 100-120/sys range; pulse 56; 36.8, 26, 94% RA. HEENT atraumatic; neck supple; lungs clear; chest shows port left upper chest w/o redness or D./C; heart RRR; abdomen soft and NT, ostomy with brown stool, SPT in place w/o d/c around tube; extremities trace pedal edema; neuro Ox3, lucid, paraplegic Gen: Pleasant and conversational. NAD HEENT: MMM, sclera clear. Lungs: clear. Nonlabored breathing. CV: RRR, S1, S2 Abd: soft, NT, ND. Ostomy in place. Ext: No edema, calf tenderness. Psych: A&O x3. Affect appropriate. Psych Mental Status: mental status grossly normal Speech and Movement: speech clear Mood: congruent mood Affect: normal affect DS: Data Vitals/I&O Vitals and I&O: Vital Signs Temperature 36.3 C L 07/30/23 12:15 Temperature Source Tympanic 07/30/23 12:15 Pulse 61 07/30/23 12:15 Pulse 76 07/30/23 09:32 Respiratory Rate 16 07/30/23 12:15 Respiratory Effort Normal 07/30/23 12:15 Respiratory Depth Normal 07/30/23 12:15 Respiratory Pattern Normal 07/30/23 12:15 Blood Pressure 166/84 H 07/30/23 12:15 Blood Pressure Mean 111 07/30/23 12:15 Blood Pressure Position Supine 07/30/23 04:59 Pulse Oximetry 97 07/30/23 12:15 Oxygen Delivery Method Room Air 07/30/23 12:15 Oxygen Flow Rate 0 07/30/23 12:15 Pain Level 0 07/30/23 12:15 Comment LLE cuff 07/30/23 07:39 Arterial Systolic 79 07/30/23 09:32 Arterial Diastolic 69 07/30/23 09:32 Arterial Mean 74 07/30/23 09:32 Intake & Output 07/29/23 07/30/23 07/30/23 23:59 11:59 23:59 Intake Total 512.5 / 568.137 550 / 700 150 / 700 Output Total 250 / 250 1000 / 1000 Balance 262.5 / 318.137 -450 / -300 150 / -300 Weight 86.3 kg Intake: IV 272.5 / 328.137 350 / 350 Oral 240 / 240 200 / 350 150 / 350 Output: Urine 250 / 250 1000 / 1000 Other: Urine Color Light Kay Light Kay Urine Appearance Cloudy Clear Clots Comment pt has a suprapubic catheter Suprapubic cath Suprapubic cath draining well Stool Size Large Stool Characteristics Formed Brown Data Completed and Pending Labs on day of discharge: Labs from last 24 hours 07/30/23 07/30/23 07/30/23 06:40 06:40 06:40 WBC 7.42 RBC 4.08 L Hgb 11.8 L Hct 35.6 L MCV 87 MCH 28.9 MCHC 33.1 RDW 13.4 Plt Count 150 MPV 11.2 H VBG Lactate Sodium 142 Potassium 3.7 Chloride 107 Carbon Dioxide 25.8 Anion Gap 9.2 BUN 16 Creatinine 0.8 Est GFR (CKD-EPI 2020) 103.87 Glucose 95 Calcium 9.4 Magnesium 1.6 L Total Bilirubin 0.4 AST 17 ALT 34 Alkaline Phosphatase 75 Total Protein 6.5 Albumin 2.8 L 07/30/23 06:40 WBC RBC Hgb Hct MCV MCH MCHC RDW Plt Count MPV VBG Lactate 0.6 Sodium Potassium Chloride Carbon Dioxide Anion Gap BUN Creatinine Est GFR (CKD-EPI 2020) Glucose Calcium Magnesium Total Bilirubin AST ALT Alkaline Phosphatase Total Protein Albumin Preliminary micro results at discharge 07/28/23 21:00 Urine Culture - Preliminary Urine - Reflex from Ua Gram Positive Wendy Gram Negative Jerrell 07/28/23 19:40 Blood Culture - Preliminary Blood NO GROWTH 24 HOURS 07/28/23 19:20 Blood Culture - Preliminary Blood NO GROWTH 24 HOURS PFSH All Active Problems Abrasion of foot, right (Acute) Urinary tract infection (Acute) Septic shock (Acute) Anxiety disorder (Acute) History of UTI (Acute) Palliative care patient (Acute) Neck pain (Acute) Decubitus skin ulcer (Acute) Insomnia (Acute) Constipation due to neurogenic bowel (Acute) Chronic recurrent multifocal osteomyelitis (Chronic) Acute osteomyelitis of sacrum (Chronic) Major depressive disorder (Chronic) Neurogenic bladder (Chronic) Quadriplegia (Chronic) Medical History Acute embolism and thrombosis of deep vein of right lower extremity DIAMOND (acute kidney injury) Aspiration into airway Bladder stones Bronchospasm C. difficile colitis Constipation Decubitus ulcer of buttock, stage 4 Dislocation of C6/C7 cervical vertebrae DNR (do not resuscitate) DVT (deep venous thrombosis) DVT prophylaxis Encounter for wound care Fall down embankment Fusion of spine H/O deep venous thrombosis Hypokalemia Hypotension Ileus Insomnia Iron deficiency anemia Large bowel obstruction Low magnesium level Malnutrition following gastrointestinal surgery Muscle spasm Neurogenic bowel Open wound of abdominal wall Physician orders for life-sustaining treatment (POLST) form indicates patient wish for [id number]-[id number] status Right arm pain Visit for wound check Weight gain Surgical History History of infusaport central venous catheter insertion S/P colostomy Suprapubic catheter Social History Smoking/Tobacco Use Status: Never Smoking risk assessment performed?: Yes Alcohol Intake: current Alcohol Intake frequency: holidays/special occasions only Drug use: Daily Substance use type: marijuana Details: marijuana: smoking, t-1, a bowl Housing: house Do you feel safe at home: Yes Do you feel safe in your relationship?: Yes Additional Social history: Rents room, has assistance at home; caregiver is [place] Time Spent with Patient Time Spent with Patient: 45-69 minutes Time was spent: preparing to see the patient(eg.review tests), obtaining and/or reviewing separately otained hiistory, ordering medications,tests, procedures, referring, communicating with other health care transition mgr, indepentently interpreting results, counseling the patient and care coordination
--- NOTE | 2023-07-30 15:22 | PDOC.CMDIS ---
Date of service: 07/30/23 Time of Service: 15:22 LACE Index Scoring Tool Questions: Length of Stay (in days): 1 Was the patient admitted via the E.D.?: Yes E.D. Visits: 4 Answers: Total Score: 8 Risk of Readmission: Low Risk Care Management Discharge Plan Reason for Hospitalization: Urosepsis. Discharge Plan: Favio will be discharged home with a resumption of RN/PT services. He will follow up with his PCP, community providers and plan of care as instructed and will be transported home via EMS coordinated by CM. Patient/Family Education Needs: Review of discharge instructions including medications, limitations and follow up plan of care; discuss Ask Me Three. Services Needed at Discharge: Home Health Care Services and Transportation
--- NOTE | 2023-07-30 15:28 | CHAPLAIN ---
Favio is well know to some staff has he was a patient here for several months about a year ago. He is a quadriplegic and lives in a family longterm in [place]. He's not been hospitalized in several months. He said things are going okay but he gets frustrated at times and sometimes had difficulty communicating clearly what he is feeling, he explained. He continues to meet online with his counselor. Favio would like to stay at least another night because he said he is not feeling well and he has a bad bug that he's been dealing with for a while. He is comfortable being here and knows a lot of the staff.
== END 2023-07-30 16:15 | disposition home or self-care (01) | DRG 871 ==
LOC: ER 07-29 07:50 → ICU 07-29 17:08
PROVIDERS: Emergency Medicine; Family Medicine; Admitting Provider General Practice; Emergency Provider Student in an Organized Health Care Education/Training Program; PCP Family Medicine; Visit Provider General Practice
DX: A41.9 Sepsis, unspecified organism (principal); G82.50 Quadriplegia, unspecified; L89.324 Pressure ulcer of left buttock, stage 4; R65.21 Severe sepsis with septic shock; N39.0 Urinary tract infection, site not specified; K59.2 Neurogenic bowel, not elsewhere classified; M86.39 Chronic multifocal osteomyelitis, multiple sites; F41.9 Anxiety disorder, unspecified; N31.9 Neuromuscular dysfunction of bladder, unspecified; Z66 Do not resuscitate; S90.811A Abrasion, right foot, initial encounter; G47.00 Insomnia, unspecified; F32.9 Major depressive disorder, single episode, unspecified; Z86.718 Personal history of other venous thrombosis and embolism; Z95.828 Presence of other vascular implants and grafts; Z93.3 Colostomy status; D50.9 Iron deficiency anemia, unspecified; Z93.51 Cutaneous-vesicostomy status; M85.89 Other specified disorders of bone density and structure, multiple sites; Z89.421 Acquired absence of other right toe(s)
CPT/HCPCS: 80053; 82550; 84145; 85027; 87040; 87635; 87637; 93005; 96365; 96366; 96367; 99285; 99291; 71045; 73630; 74177; 81003; 81015; 83605; 83735; 84484; 85025; 87086; 93010; 99223; 99239; J2543; J3490

== ENCOUNTER → 2023-08-12 08:16 | Outpatient (BNVA) | payer MEDICARE, MEDICAID, SELFPAY | PROVIDERS: PCP Family Medicine; Referring Provider Family Medicine; Visit Provider Nurse Practitioner Gerontology | DX: N21.0 Calculus in bladder (principal); N31.9 Neuromuscular dysfunction of bladder, unspecified; Z96.0 Presence of urogenital implants; Z87.440 Personal history of urinary (tract) infections | CPT/HCPCS: 99442 ==

== ENCOUNTER 2023-08-19 17:09 | Emergency (ER) | payer MEDICARE, MEDICAID, SELFPAY ==
--- NOTE | 2023-08-19 17:00 | RT.EKG_ITS ---
APPROVED REPORT Exam: Resting ECG Reason for Exam: chest pain Patient Location: E HR:65 bpm ECG Measurements Heart Rate 65 AXIS KS 66 P 175 QRSd 104 QRS -71 QT 391 T 66 QTc 408 Conclusion Sinus rhythm No ST segment or T wave abnormalities to suggest occlusive PR limited interpretation 2/t artifact V2
[2023-08-19 17:10] VITALS: BP 142/69; PULSE 18; RESP 18; TEMP 36.9; O2SAT 97
--- NOTE | 2023-08-19 17:28 | ED.GENADUL_ITS ---
Discharge Plan Discharge Details Chief Complaint: Anxiety Clinical Impression: Chronic pain, Suicidal ideation, Decubitus skin ulcer, Quadriplegia Primary Care Provider: Genevieve Baez ED Provider: Lucie Choudhury Home Meds and New Rx's Prescriptions: No Action baclofen 20 mg tablet 60 mg PO TID Qty: 270 6RF diclofenac sodium [Voltaren Arthritis Pain] 1 % gel 4 g topical QID PRN (Reason: muscle pain) Qty: 100 5RF Rx Instructions: apply to painful muscles divalproex [Depakote ER] 250 mg tablet extended release 24 hr 250 mg PO BID Qty: 90 4RF Rx Instructions: after 2 weeks, increase to 500mg BID zolpidem 10 mg tablet 10 mg PO QHS PRN (Reason: sleep) Qty: 1 0RF Rx Instructions: rx by Dr Recinos nystatin 100,000 unit/gram powder 1 applic topical BID Qty: 60 4RF nystatin 100,000 unit/gram powder 1 applic topical BID Qty: 60 4RF ascorbic acid (vitamin C) [Vitamin C] 500 mg tablet See Rx Instructions .ROUTE .COMPLEX Qty: 120 11RF Dose Instruction: TAKE 1 TABLET BY MOUTH FOUR TIMES A DAY Rx Instructions: TAKE 1 TABLET BY MOUTH FOUR TIMES A DAY cephalexin 250 mg capsule 250 mg PO DAILY Patient Comments: pt. reports he is taking for a UTI sildenafil [Viagra] 100 mg tablet 100 mg PO DAILY PRN (Reason: sexual activity) Rx Instructions: administer 30 minutes to 4 hours before activity. Call [facility] for credit card number. He knows its self pay methenamine hippurate [Hiprex] 1 gram tablet 1 g PO TID lorazepam [Ativan] 1 mg tablet 1 mg PO TID MDD 3 mg cholecalciferol (vitamin D3) [Vitamin D3] 25 mcg (1,000 unit) tablet 1,000 units PO DAILY Phlexy-Vits Powder In Packet 1 packet PO TID Qty: 90 0RF Myrbetriq 25 mg Tablet Extended Release 24 Hr 25 mg PO DAILY Qty: 30 0RF Patient Comments: pt. reports he probably took yesterday acetaminophen [Tylenol] 325 mg tablet 650 mg PO Q6H PRN PRN (Reason: fever or pain) Qty: 30 0RF docusate sodium [Colace] 100 mg capsule 100 mg PO TID Qty: 90 0RF multivitamin,tx-minerals Tablet 1 tab PO DAILY Qty: 30 0RF senna 8.6 mg capsule 17.2 mg PO BID Qty: 120 0RF Lactobacillus acidoph-L.bulgar [Floranex] 1 million cell tablet 1 tab PO TID Qty: 90 0RF Mag-Delay 64 mg tablet,delayed release (DR/EC) 128 mg PO BID Medical Decision Making 58yo M with quadriplegia after accident 3 years ago presenting for diffuse pain and suicidal ideation. History from patient and [facility] record review; recent office visit notes state he has been seeking hospice and medical aid in dying but does not qualify as he does not have a 6-month terminal diagnosis. Pain has not acutely changed, but has been gradually worsening and now is intolerable particularly his extremities which are burning. No new physical symptoms. Reports feeling hopeless and wants to , no specific plan. Vital signs reassuring, physical exam at baseline, no indication for imaging. Given tylenol and toradol for pain with dilaudid for breakthrough pain. Ativan at home for anxiety; will give dose here as well. Labs reviewed as below, CBC & CMP without significant acute abnormalities. Evaluated by MH, unable to adequately safety plan at this time, plan to hold overnight in the ED and re-eval with his care team in the morning. No acute medical issues requiring intervention; home medications ordered. Signed out to overnight physician, pending MH reeval in the morning. Lab Data Lab results reviewed: Yes I reviewed the patient's lab results. Labs: Laboratory Tests Range/Units 08/19/23 18:05 WBC (4.4-10.8) 10^3/uL 6.65 RBC (4.36-5.78) 10^6/uL 4.27 L Hgb (13.5-17.5) g/dL 12.3 L Hct (40.0-50.0) % 38.0 L MCV (80-95) fL 89 MCH (27.0-33.0) pg 28.8 MCHC (32.0-36.0) % 32.4 RDW (11.8-14.1) % 13.7 Plt Count (130-400) 10^3/uL 194 MPV (8.0-11.0) fL 11.2 H Immature Gran % 0.3 Neutrophils % 60.9 Lymphocytes % 27.8 Monocytes % 7.2 Eosinophils % 3.2 Basophils % 0.6 Nucleated RBC % (0.0-0.3) % 0.0 Absolute Neutrophils (1.2-6.7) 10^3/uL 4.05 Absolute Lymphocytes (1.2-3.4) 10^3/uL 1.85 Absolute Monocytes (0.1-0.8) 10^3/uL 0.48 Absolute Eosinophils (0.0-0.7) 10^3/uL 0.21 Absolute Basophils (0.0-0.2) 10^3/uL 0.04 Sodium (136-145) mmol/L 139 Potassium (3.5-5.1) mmol/L 4.3 Chloride (98-107) mmol/L 105 Carbon Dioxide (21.0-32.0) mmol/L 27.5 Anion Gap (3-11) mmol/L 6.5 BUN (7-18) mg/dL 15 Creatinine (0.70-1.30) mg/dL 0.6 L Est GFR (CKD-EPI 2020) (mL/min/1.73m2) 113.29 Glucose (74-106) mg/dL 117 H Calcium (8.5-10.1) mg/dL 9.1 Total Bilirubin (0.2-1.0) mg/dL 0.2 AST (15-37) U/L 8 L ALT (16-63) U/L 18 Alkaline Phosphatase (46-116) U/L 65 Total Protein (6.4-8.2) g/dL 6.7 Albumin (3.4-5.0) g/dL 3.2 L HPI General Mode of arrival: EMS . Date/Time Provider Initiated Documentation: 08/19/23 17:12 . Limitations to Documentation: no limitations . Information obtained by: patient and EMS . HPI Narrative: 58yo M with quadriplegia after accident 3 years ago presenting for diffuse pain and suicidal ideation. Pain in his left arm, right leg and hip, left buttock, unchanged in location but somewhat worsening in severity over the past several months. Feels his current state is intolerable and that he wishes to . Requests hospice. No HI/AH/VH. No new physical symptoms, no recent injury or trauma. No fevers, chills, rash, nausea, vomiting, abdominal pain, or other concerns. Related Data Home Medications Medication Instructions Recorded Confirmed Lactobacillus acidoph-L.bulgaricus 1 tab PO TID #90 tabs 01/08/22 08/06/23 1 million cell tablet (Floranex) acetaminophen 325 mg tablet 650 mg (2 x 325 mg) PO Q6H PRN PRN 01/08/22 08/06/23 (Tylenol) fever or pain #30 tabs docusate sodium 100 mg capsule 100 mg PO TID #90 caps 01/08/22 08/06/23 (Colace) mirabegron 25 mg tablet,extended 25 mg PO DAILY #30 tabs 01/08/22 08/06/23 release 24 hr (Myrbetriq) multivitamin,tx-minerals 1 tab PO DAILY #30 tabs 01/08/22 08/06/23 nutritional supplements 1 packet PO TID #90 ea 01/08/22 08/06/23 (Phlexy-Vits) sennosides 8.6 mg capsule (senna) 17.2 mg (2 x 8.6 mg) PO BID #120 01/08/22 08/06/23 caps magnesium chloride 64 mg 128 mg PO BID 02/24/22 08/06/23 (magnesium chloride) tablet,delayed release (Mag-Delay) nystatin 100,000 unit/gram topical 1 applic topical BID #60 grams 09/29/22 powder baclofen 20 mg tablet 60 mg (3 x 20 mg) PO TID #270 tabs 02/27/23 08/06/23 diclofenac sodium 1 % topical gel 4 g topical QID PRN muscle pain 02/27/23 08/06/23 (Voltaren Arthritis Pain) #100 grams cephalexin 250 mg capsule 250 mg PO DAILY 07/24/23 08/06/23 cholecalciferol (vitamin D3) 25 1,000 units PO DAILY 07/24/23 08/06/23 mcg (1,000 unit) tablet (Vitamin D3) lorazepam 1 mg tablet (Ativan) 1 mg PO TID 07/24/23 08/06/23 methenamine hippurate 1 gram 1 g PO TID 07/24/23 08/06/23 tablet (Hiprex) sildenafil 100 mg tablet (Viagra) 100 mg PO DAILY PRN sexual activity 07/24/23 08/06/23 ascorbic acid (vitamin C) 500 mg See Rx Instructions .Route 08/04/23 08/06/23 tablet (Vitamin C) .COMPLEX #120 tabs divalproex 250 mg tablet,extended 250 mg PO BID #90 tabs 08/07/23 08/07/23 release 24 hr (Depakote ER) nystatin 100,000 unit/gram topical 1 applic topical BID #60 grams 08/07/23 08/07/23 powder zolpidem 10 mg tablet 10 mg PO QHS PRN sleep #1 tab 08/07/23 08/07/23 Previous Rx's Medication Instructions Recorded Lactobacillus acidoph-L.bulgaricus 1 tab PO TID #90 tabs 01/08/22 1 million cell tablet (Floranex) acetaminophen 325 mg tablet 650 mg (2 x 325 mg) PO Q6H PRN PRN 01/08/22 (Tylenol) fever or pain #30 tabs docusate sodium 100 mg capsule 100 mg PO TID #90 caps 01/08/22 (Colace) mirabegron 25 mg tablet,extended 25 mg PO DAILY #30 tabs 01/08/22 release 24 hr (Myrbetriq) multivitamin,tx-minerals 1 tab PO DAILY #30 tabs 01/08/22 nutritional supplements 1 packet PO TID #90 ea 01/08/22 (Phlexy-Vits) sennosides 8.6 mg capsule (senna) 17.2 mg (2 x 8.6 mg) PO BID #120 01/08/22 caps nystatin 100,000 unit/gram topical 1 applic topical BID #60 grams 09/29/22 powder baclofen 20 mg tablet 60 mg (3 x 20 mg) PO TID #270 tabs 02/27/23 diclofenac sodium 1 % topical gel 4 g topical QID PRN muscle pain 02/27/23 (Voltaren Arthritis Pain) #100 grams ascorbic acid (vitamin C) 500 mg See Rx Instructions .Route 08/04/23 tablet (Vitamin C) .COMPLEX #120 tabs divalproex 250 mg tablet,extended 250 mg PO BID #90 tabs 08/07/23 release 24 hr (Depakote ER) nystatin 100,000 unit/gram topical 1 applic topical BID #60 grams 08/07/23 powder zolpidem 10 mg tablet 10 mg PO QHS PRN sleep #1 tab 08/07/23 Allergies Allergy/AdvReac Type Severity Reaction Status Date / Time No Known Allergies Allergy Verified 08/19/23 17:14 General Stated Complaint: Anxiety LU: 2 Review of Systems Narrative: see HPI PFSH All Active Problems (Updated 08/19/23 @ 22:42 by Lucie Choudhury MD) Suicidal ideation (Acute) Chronic pain (Chronic) Abrasion of foot, right (Acute) Urinary tract infection (Acute) Anxiety disorder (Acute) History of UTI (Acute) Palliative care patient (Acute) Neck pain (Acute) Decubitus skin ulcer (Acute) Insomnia (Acute) Constipation due to neurogenic bowel (Acute) Chronic recurrent multifocal osteomyelitis (Chronic) Acute osteomyelitis of sacrum (Chronic) Major depressive disorder (Chronic) Neurogenic bladder (Chronic) Quadriplegia (Chronic) Medical History Acute embolism and thrombosis of deep vein of right lower extremity DIAMOND (acute kidney injury) Aspiration into airway Bladder stones Bronchospasm C. difficile colitis Constipation Decubitus ulcer of buttock, stage 4 Dislocation of C6/C7 cervical vertebrae DNR (do not resuscitate) DVT (deep venous thrombosis) DVT prophylaxis Encounter for wound care Fall down embankment Fusion of spine H/O deep venous thrombosis Hypokalemia Hypotension Ileus Insomnia Iron deficiency anemia Large bowel obstruction Low magnesium level Malnutrition following gastrointestinal surgery Muscle spasm Neurogenic bowel Open wound of abdominal wall Physician orders for life-sustaining treatment (POLST) form indicates patient wish for jy-eiz-qqkzyqcgjgx status Right arm pain Visit for wound check Weight gain Surgical History History of infusaport central venous catheter insertion S/P colostomy Suprapubic catheter Social History Smoking/Tobacco Use Status: Never Smoking risk assessment performed?: Yes Alcohol Intake: current Alcohol Intake frequency: holidays/special occasions only Drug use: Daily Substance use type: marijuana Details: marijuana: smoking, t-1, a bowl Housing: house Do you feel safe at home: Yes Do you feel safe in your relationship?: Yes Additional Social history: Rents room, has assistance at home; caregiver is [place] Exam Narrative Exam Narrative: General: Alert, chronically ill appearing, in no acute distress. Head: Normocephalic, atraumatic Neck: Trachea midline, Neck supple. ENT: MMM. No oropharygeal lesions or exudate. Cardiac: RRR, no murmurs appreciated Back: Healing decubitis ulcer Resp: No respiratory distress. CTAB. Abd: Soft, non-distended, nontender. Colostomy. : No suprapubic tenderness. Extremities: No peripheral edema. Neurologic: GCS 15. Antigravity with bilateral upper extremities. Psych: Calm, cooperative. Mood hopeless, affect congruent. Speech with normal volume, rate, rythym and tone. Linear and goal directed. +SI, no specific plan. Denies HI/AH/VH. Does not appear to be responding to internal stimuli. Course Vital Signs Vital signs: Vital Signs Temperature 36.9 C 08/19/23 17:10 Pulse 18 L 08/19/23 17:10 Respiratory Rate 18 08/19/23 17:10 Blood Pressure 142/69 H 08/19/23 17:10 Pulse Oximetry 97 08/19/23 17:10 Temperature 36.9 C 08/19/23 17:10 Temperature Source Skin 08/19/23 17:10 Pulse 18 L 08/19/23 17:10 Respiratory Rate 18 08/19/23 17:10 Respiratory Effort Normal 08/19/23 17:13 Blood Pressure 142/69 H 08/19/23 17:10 Blood Pressure Position Supine 08/19/23 17:10 Pulse Oximetry 97 08/19/23 17:10 Oxygen Delivery Method Room Air 08/19/23 17:10 Oxygen Flow Rate 0 08/19/23 17:10 Sign Out Sign Out Data: Sign Out Comment: 58y M with quadraplegia here with worsening chronic pain and suicidal ideation. Medically at baseline, home meds ordered. Pending am re- eval with and care team. Last updated by Lucie Choudhury MD at 08/19/23 22:44
[2023-08-19] MEDS: Ondansetron 4 MG/2 ML VIAL IVP (18:02)
[2023-08-19] MEDS: ACETAMINOPHEN 1,000 MG/100 ML BTL 400 MG IVPB (18:02)
[2023-08-19] MEDS: Ketorolac 15 MG/ML VIAL IVP (18:03)
[2023-08-19] MEDS: HYDROmorphone 2 MG/ML SYR 1 MG IVP ×3 (18:04→21:13)
[2023-08-19] MEDS: LORazepam 2 MG/ML VIAL 1 MG IVP (18:06)
[2023-08-19 18:16] LABS: Abs Immature Grans 0.02 10^3/uL (0.0-0.06); Absolute Basophil Count 0.04 10^3/uL (0.0-0.2); Absolute Eosinophil Count 0.21 10^3/uL (0.0-0.7); Absolute Lymphocyte Count 1.85 10^3/uL (1.2-3.4); Absolute Monocyte Count 0.48 10^3/uL (0.1-0.8); Absolute Neutrophil Count 4.05 10^3/uL (1.2-6.7); Basophils % 0.6; Eosinophils % 3.2; HGB 12.3 g/dL (13.5-17.5); Immature Grans % 0.3; Lymphocytes % 27.8; MCH 28.8 pg (27.0-33.0); MCHC 32.4 % (32.0-36.0); MCV 89 fL (80-95); MPV 11.2 fL (8.0-11.0); Monocytes % 7.2; Neutrophils % 60.9; Platelet Count 194 10^3/uL (130-400); RBC 4.27 10^6/uL (4.36-5.78); RDW 13.7 % (11.8-14.1); RDW-SD 44.3 fL; WBC 6.65 10^3/uL (4.4-10.8)
[2023-08-19 18:31] LABS: ALT 18 U/L (16-63); AST 8 U/L (15-37); Albumin 3.2 g/dL (3.4-5.0); Alkaline Phosphatase 65 U/L (46-116); Anion Gap 6.5 mmol/L (3-11); BUN 15 mg/dL (7-18); Bilirubin, Total 0.2 mg/dL (0.2-1.0); CO2 27.5 mmol/L (21.0-32.0); CREATININE 0.6 mg/dL (0.70-1.30); Calcium 9.1 mg/dL (8.5-10.1); Chloride 105 mmol/L (98-107); Estimated GFR 113.29 (mL/min/1.73m2); Glucose 117 mg/dL (74-106); Potassium 4.3 mmol/L (3.5-5.1); Sodium 139 mmol/L (136-145); Total Protein 6.7 g/dL (6.4-8.2)
--- NOTE | 2023-08-19 18:58 | NUR.NOTE ---
Mental health call for pt for SI, waiting for rula back.
[2023-08-19] MEDS: Normal Saline 1,000 ML 1000 ML IV (21:23)
[2023-08-20] VITALS (55 sets, daily range): BP systolic 100–134; BP diastolic 55–78; PULSE 55–69; RESP 0–24; TEMP 37.5
--- NOTE | 2023-08-20 06:54 | ED.PROG_ITS ---
Date of service: 08/20/23 Time of Service: 06:55 Medical Decision Making Patient was signed out to me by my colleague Barby Obed, please refer to her HPI, physical exam, assessment and plan. Plan was for patient to be assessed by the care management team and potentially palliative care as well. Patient was transitioned to my care overnight waiting for care management team. Patient stable throughout the night. No interventions needed. Patient request some pain medication for his contracture arm pain. The patient was given for morphine. No other interventions given. Plan is for follow-up with palliative care and care management team. Sign Out Sign Out Data: Sign Out Comment: 58y M with quadraplegia here with worsening chronic pain and suicidal ideation. Medically at baseline, home meds ordered. Pending am re- eval with and care team. Last updated by Lucie Choudhury MD at 08/19/23 22:44 Discharge Plan Discharge Details Chief Complaint: Anxiety Clinical Impression: Chronic pain, Suicidal ideation, Decubitus skin ulcer, Quadriplegia Primary Care Provider: Genevieve Baez ED Provider: Emanuel Phan Home Meds and New Rx's Prescriptions: No Action baclofen 20 mg tablet 60 mg PO TID Qty: 270 6RF diclofenac sodium [Voltaren Arthritis Pain] 1 % gel 4 g topical QID PRN (Reason: muscle pain) Qty: 100 5RF Rx Instructions: apply to painful muscles divalproex [Depakote ER] 250 mg tablet extended release 24 hr 250 mg PO BID Qty: 90 4RF Rx Instructions: after 2 weeks, increase to 500mg BID zolpidem 10 mg tablet 10 mg PO QHS PRN (Reason: sleep) Qty: 1 0RF Rx Instructions: rx by Dr Recinos nystatin 100,000 unit/gram powder 1 applic topical BID Qty: 60 4RF nystatin 100,000 unit/gram powder 1 applic topical BID Qty: 60 4RF ascorbic acid (vitamin C) [Vitamin C] 500 mg tablet See Rx Instructions .ROUTE .COMPLEX Qty: 120 11RF Dose Instruction: TAKE 1 TABLET BY MOUTH FOUR TIMES A DAY Rx Instructions: TAKE 1 TABLET BY MOUTH FOUR TIMES A DAY cephalexin 250 mg capsule 250 mg PO DAILY Patient Comments: pt. reports he is taking for a UTI sildenafil [Viagra] 100 mg tablet 100 mg PO DAILY PRN (Reason: sexual activity) Rx Instructions: administer 30 minutes to 4 hours before activity. Call [employer] for credit card number. He knows its self pay methenamine hippurate [Hiprex] 1 gram tablet 1 g PO TID lorazepam [Ativan] 1 mg tablet 1 mg PO TID MDD 3 mg cholecalciferol (vitamin D3) [Vitamin D3] 25 mcg (1,000 unit) tablet 1,000 units PO DAILY Phlexy-Vits Powder In Packet 1 packet PO TID Qty: 90 0RF Myrbetriq 25 mg Tablet Extended Release 24 Hr 25 mg PO DAILY Qty: 30 0RF Patient Comments: pt. reports he probably took yesterday acetaminophen [Tylenol] 325 mg tablet 650 mg PO Q6H PRN PRN (Reason: fever or pain) Qty: 30 0RF docusate sodium [Colace] 100 mg capsule 100 mg PO TID Qty: 90 0RF multivitamin,tx-minerals Tablet 1 tab PO DAILY Qty: 30 0RF senna 8.6 mg capsule 17.2 mg PO BID Qty: 120 0RF Lactobacillus acidoph-L.bulgar [Floranex] 1 million cell tablet 1 tab PO TID Qty: 90 0RF Mag-Delay 64 mg tablet,delayed release (DR/EC) 128 mg PO BID
[2023-08-20] MEDS: Docusate Sodium 100 MG CAP PO (07:51)
[2023-08-20] MEDS: LORazepam 1 MG TAB PO (07:51)
[2023-08-20] MEDS: Protein Nutritional Supplement 16 GM 1 OUNCE PACKET PO (08:33)
[2023-08-20] MEDS: Magnesium Chloride 64 MG TABCR 128 MG PO (08:34)
[2023-08-20] MEDS: Divalproex Sodium 250 MG TAB.ER.24H PO (08:34)
[2023-08-20] MEDS: Baclofen 10 MG TAB 60 MG PO (08:35)
[2023-08-20] MEDS: Cholecalciferol (Vitamin D3) 1,000 UNIT TAB 1000 UNITS PO (08:36)
[2023-08-20] MEDS: Mirabegron 25 MG TABCR PO (08:36)
[2023-08-20] MEDS: Senna TAB 2 TAB PO (08:36)
[2023-08-20] MEDS: Multivitamin w/Minerals TAB 1 TAB PO (08:37)
[2023-08-20] MEDS: Ascorbic Acid 500 MG TAB PO (08:39)
--- NOTE | 2023-08-20 08:47 | W.EDPROG ---
Date of service: 08/20/23 Time of Service: 07:00 Medical Decision Making MDM: Summary: Patient who is a quadriplegic presented to the emergency department with generalized pain was seen by the prescriber Dr. Phan who prescribed him Dilaudid and Ativan. He is gentleman who has been followed by palliative care for his quadriplegia and voiced that he wanted euthanasia. He is part of doctors consulted and feels that he can go back to the rehab facility where she resides for this time he is more prognostic than 6 months and hospice care is not for him. She further stated that she has been seeing him every day and managing his pain. Patient received here 2 mg of p.o. Dilaudid before he goes but he was to return to the rehab facility Data Review Analysis All the data on this patient was reviewed by me including laboratory and imaging studies as well as bedside studies performed by me Independent review of Studies Imaging Lab: Labs are unremarkable Risk Stratification: Patient will be discharged home he is a quadriplegic who is depressed admitted management palliative care Differential Diagnosis: 1. Contracture pain 2. Depression 3. Pain management 4. 5. Consultants: And palliative care who consulted in the emergency department Shared disposition: Impression: Medical Records Medical records reviewed: Yes I reviewed the patient's medical records. Sign Out Sign Out Data: Sign Out Comment: 58y M with quadraplegia here with worsening chronic pain and suicidal ideation. Medically at baseline, home meds ordered. Pending am re-eval with and care team. Last updated by Lucie Choudhury MD at 08/19/23 22:44 Sign Out Comment: Quadriplegia, worsening chronic pain. Home meds ordered. Stable and at baseline, does not want to live any longer. Palliative care consult placed Last updated by Emanuel Phan DO at 08/20/23 07:37 Discharge Plan Disposition Patient Disposition: [facility] Condition: Stable Discharge Details Clinical Impression: Chronic pain, Suicidal ideation, Decubitus skin ulcer, Quadriplegia Primary Care Provider: Genevieve Baez ED Provider: Matt Murray Home Meds and New Rx's Prescriptions: Continued baclofen 20 mg tablet 60 mg PO TID Qty: 270 6RF diclofenac sodium [Voltaren Arthritis Pain] 1 % gel 4 g topical QID PRN (Reason: muscle pain) Qty: 100 5RF Rx Instructions: apply to painful muscles zolpidem 10 mg tablet 10 mg PO QHS PRN (Reason: sleep) Qty: 1 0RF Rx Instructions: rx by Dr Recinos nystatin 100,000 unit/gram powder 1 applic topical BID Qty: 60 4RF nystatin 100,000 unit/gram powder 1 applic topical BID Qty: 60 4RF ascorbic acid (vitamin C) [Vitamin C] 500 mg tablet See Rx Instructions .ROUTE .COMPLEX Qty: 120 11RF Dose Instruction: TAKE 1 TABLET BY MOUTH FOUR TIMES A DAY Rx Instructions: TAKE 1 TABLET BY MOUTH FOUR TIMES A DAY hydromorphone 2 mg tablet 2 mg PO QID PRN MDD 8 PRN (Reason: pain) Qty: 28 0RF Rx Instructions: please deliver 08/20/23 divalproex 500 mg tablet extended release 24 hr 1,000 mg PO DAILY Qty: 60 12RF lorazepam [Ativan] 1 mg tablet 1 mg PO .COMPLEX MDD 5mg PRN (Reason: anxiety) Qty: 150 2RF Rx Instructions: 1 mg orally TID and 2 additional tabs PRN PRN; cephalexin 250 mg capsule 250 mg PO DAILY Patient Comments: pt. reports he is taking for a UTI sildenafil [Viagra] 100 mg tablet 100 mg PO DAILY PRN (Reason: sexual activity) Rx Instructions: administer 30 minutes to 4 hours before activity. Call [employer] for credit card number. He knows its self pay methenamine hippurate [Hiprex] 1 gram tablet 1 g PO TID cholecalciferol (vitamin D3) [Vitamin D3] 25 mcg (1,000 unit) tablet 1,000 units PO DAILY Phlexy-Vits Powder In Packet 1 packet PO TID Qty: 90 0RF Myrbetriq 25 mg Tablet Extended Release 24 Hr 25 mg PO DAILY Qty: 30 0RF Patient Comments: pt. reports he probably took yesterday acetaminophen [Tylenol] 325 mg tablet 650 mg PO Q6H PRN PRN (Reason: fever or pain) Qty: 30 0RF docusate sodium [Colace] 100 mg capsule 100 mg PO TID Qty: 90 0RF multivitamin,tx-minerals Tablet 1 tab PO DAILY Qty: 30 0RF senna 8.6 mg capsule 17.2 mg PO BID Qty: 120 0RF Lactobacillus acidoph-L.bulgar [Floranex] 1 million cell tablet 1 tab PO TID Qty: 90 0RF Mag-Delay 64 mg tablet,delayed release (DR/EC) 128 mg PO BID Discharge Instructions Instructions: Chronic Pain (ED) Discharge Data Discharge Physician: Matt Murray
[2023-08-20] MEDS: HYDROmorphone 2 MG TAB PO (09:06)
== END 2023-08-20 09:13 | disposition skilled nursing facility (03) ==
PROVIDERS: Student in an Organized Health Care Education/Training Program; Emergency Provider Emergency Medicine Emergency Medical Services; PCP Family Medicine
DX: G89.29 Other chronic pain (principal); R45.851 Suicidal ideations; G82.50 Quadriplegia, unspecified; Z93.3 Colostomy status; L89.109 Pressure ulcer of unspecified part of back, unspecified stage
CPT/HCPCS: 00123; 80053; 93005; 96361; 96374; 96375; 96376; 99284; 85025; 93010; 99285; J0131; J1170; J1885; J2060; J2405; J3490

== ENCOUNTER 2023-08-28 16:16 | Emergency (ER) | payer MEDICARE, MEDICAID, SELFPAY ==
[2023-08-28 16:15] VITALS: BP 91/45; PULSE 62; RESP 14; TEMP 37.1; O2SAT 94
--- NOTE | 2023-08-28 16:59 | ED.GENADUL_ITS ---
Discharge Plan Disposition Patient Disposition: Home Discharge Details Clinical Impression: Urinary tract infection, Narcotic overdose, Quadriplegia Primary Care Provider: Genevieve Baez ED Provider: Nevaeh Ivey Home Meds and New Rx's Prescriptions: Continued baclofen 20 mg tablet 60 mg PO TID Qty: 270 6RF diclofenac sodium [Voltaren Arthritis Pain] 1 % gel 4 g topical QID PRN (Reason: muscle pain) Qty: 100 5RF Rx Instructions: apply to painful muscles naloxone [Narcan] 4 mg/actuation spray,non-aerosol 4 mg intranasal Q2M PRN (Reason: opioid overdose) Qty: 2 4RF Rx Instructions: spray 1 dose into ONE nostril; alternate nostrils w each dose until help arrives zolpidem 10 mg tablet 10 mg PO QHS PRN (Reason: sleep) Qty: 1 0RF Rx Instructions: rx by Dr Recinos nystatin 100,000 unit/gram powder 1 applic topical BID Qty: 60 4RF nystatin 100,000 unit/gram powder 1 applic topical BID Qty: 60 4RF ascorbic acid (vitamin C) [Vitamin C] 500 mg tablet See Rx Instructions .ROUTE .COMPLEX Qty: 120 11RF Dose Instruction: TAKE 1 TABLET BY MOUTH FOUR TIMES A DAY Rx Instructions: TAKE 1 TABLET BY MOUTH FOUR TIMES A DAY divalproex 500 mg tablet extended release 24 hr 1,000 mg PO DAILY Qty: 60 12RF lorazepam [Ativan] 1 mg tablet 1 mg PO .COMPLEX MDD 5mg PRN (Reason: anxiety) Qty: 150 2RF Rx Instructions: 1 mg orally TID and 2 additional tabs PRN PRN; buprenorphine HCl 75 mcg film 75 mcg buccal Q12H Qty: 60 3RF hydromorphone 2 mg tablet 2 mg PO .q12 h MDD 4 plus buprenophine PRN (Reason: pain) Qty: 28 0RF sildenafil [Viagra] 100 mg tablet 100 mg PO DAILY PRN (Reason: sexual activity) Rx Instructions: administer 30 minutes to 4 hours before activity. Call [employer] for credit card number. He knows its self pay methenamine hippurate [Hiprex] 1 gram tablet 1 g PO TID cholecalciferol (vitamin D3) [Vitamin D3] 25 mcg (1,000 unit) tablet 1,000 units PO DAILY Phlexy-Vits Powder In Packet 1 packet PO TID Qty: 90 0RF Myrbetriq 25 mg Tablet Extended Release 24 Hr 25 mg PO DAILY Qty: 30 0RF Patient Comments: pt. reports he probably took yesterday acetaminophen [Tylenol] 325 mg tablet 650 mg PO Q6H PRN PRN (Reason: fever or pain) Qty: 30 0RF docusate sodium [Colace] 100 mg capsule 100 mg PO TID Qty: 90 0RF multivitamin,tx-minerals Tablet 1 tab PO DAILY Qty: 30 0RF senna 8.6 mg capsule 17.2 mg PO BID Qty: 120 0RF Lactobacillus acidoph-L.bulgar [Floranex] 1 million cell tablet 1 tab PO TID Qty: 90 0RF Mag-Delay 64 mg tablet,delayed release (DR/EC) 128 mg PO BID Discharge Instructions Instructions: Urinary Tract Infection in Men (ED), Narcotic Safety (ED) Additional Instructions: [facility] has been treated for his urinary tract infection in the ED. He does not need any additional antibiotics. His doctor is changing him to 75 mcg of buprenorphine twice a day with Dilaudid to use for breakthrough pain. He is supposed to max out on 2 mg of Dilaudid per day. He will be drowsy with these medications and may be difficult to awake. Please reach out to Dr. Zhu for palliative care as needed for additional questions or concerns. Discharge Data Discharge Date/Time-TO BE ENTERED AT DEPARTURE: 08/28/23 21:13 Medical Decision Making The patient's last 2 doctors notes, 1 on the of this month and another earlier today state that he requested to stop all antibiotic therapy. This is because he is hoping to from sepsis. He has evidently wanted to have assisted suicide for many years but does not qualify. His doctor transitioned him from Dilaudid to buprenorphine/naloxone but he could not tolerate the pain. Today she has made the decision to put him on 75 mcg of buprenorphine twice a day and allow him to have Dilaudid 2 mg in a 24-hour period. The patient did receive 0.4 mg of Narcan in the ED. He continues to wake up, ask for pain medication, speak a little bit with staff or his mother, and then fall back asleep again. He says he wants to feel better and when I ask him what he means by this he states he wants the pain to be better. His daughter was here briefly and told him that he would feel better with antibiotics but at that time it was unclear whether he even had an infection. His mother says he wants abx but when I ask he says he just wants to feel better. 2100. Patient is quite awake and states that he absolutely wants antibiotics at this time and is quite unpleasant. I will give him 3 g of oral fosfomycin which will cure urinary tract infection. I did discuss his case with Charley Lunsford from palliative care. She will discuss his care with Dr. Zhu tomorrow and make sure that he has his Bup and Dilaudid. D/c home. Mother and other friend/family member in room with him, aware of plan. Medical Records Medical records reviewed: Yes I reviewed the patient's medical records. Imaging Data Radiologic Study: Imaging: X-Ray Radiologist's impression: Patient Name: Bruce Velasquez Jr Unit #: [id number] Loc: ER Ordering Provider: Nevaeh Ivye M.D. Status: [facility] ER Primary Care Provider: Genevieve Baez Date of Exam: 08/28/23 Sex: M Admission Date: 08/28/23 : 1965 Age: 58 Exam(s) XR PORTABLE CHEST AP EXAM: XR PORTABLE CHEST AP CLINICAL HISTORY: AMS. TECHNIQUE: 2D digital imaging was performed. COMPARISON: CR,XR XR PORTABLE CHEST AP from 07/28/2023 FINDINGS: Single AP portable view. Distal tip of the left subclavian Port-A-Cath is in good position at the SVC/RA junction. Heart size is upper normal. The mediastinum is not widened. No new right lung findings. Mild increased markings in the retrocardiac left lower lobe noted but may be vascular and appear unchanged. No pleural effusions. Fusion hardware in the lower cervical upper thoracic spine again noted. IMPRESSION: Subtle increased markings left lower lobe retrocardiac region. Cannot exclude mild infiltrate at this level. There are no pleural effusions. No pulmonary edema. DATA REPOSITORY: Lab Data Lab results reviewed: Yes I reviewed the patient's lab results. Lab results narrative: Patient patient's H&H are 12.2 and 36.7 with a platelet count of 123. These are mildly decreased from prior. VBG is 7.36/51/28. Chem 20 is normal. Mag is 1.7. Trope is normal. Ammonia is pending. Labs: Ammonia is WNL. HPI General Date/Time Provider Initiated Documentation: 08/28/23 16:22 . HPI Narrative: This 58-year-old quadriplegic presents with a chief complaint of altered mental status. Reportedly EMS was called because he was not acting right. They got there his heart rate was 35 on arrival in the ED his blood pressure was in the 90s. He does have a POLST/DNR form dating from October of last year that says DNR and DNI. Comfort focused treatment or allowing natural is checked. Does state not to administer artificial nutrition, artificial hydration, or antibiotics (latter unless the patient is very sick). It also says that he is to be transported to the hospital for end-of-life care so he does not burden his caregiver by dying in her home. On arrival in the ED the patient is somnolent. He could tell me his name and where he was. He falls easily to sleep and his only complaint is that his head hurts. I was able to get a hold of his daughter Luz Velasquez who is his healthcare agent. She states that he was hospitalized recently and did have IV fluid and antibiotics and it is fine to do this at this time as well. She says I can get urine, labs, and a chest x-ray. She did not want a head CT. She also tells me that the patient has chronic head and neck pain and this is nothing new. Related Data Home Medications Medication Instructions Recorded Confirmed Lactobacillus acidoph-L.bulgaricus 1 tab PO TID #90 tabs 01/08/22 08/28/23 1 million cell tablet (Floranex) acetaminophen 325 mg tablet 650 mg (2 x 325 mg) PO Q6H PRN PRN 01/08/22 08/28/23 (Tylenol) fever or pain #30 tabs docusate sodium 100 mg capsule 100 mg PO TID #90 caps 01/08/22 08/28/23 (Colace) mirabegron 25 mg tablet,extended 25 mg PO DAILY #30 tabs 01/08/22 08/28/23 release 24 hr (Myrbetriq) multivitamin,tx-minerals 1 tab PO DAILY #30 tabs 01/08/22 08/28/23 nutritional supplements 1 packet PO TID #90 ea 01/08/22 08/28/23 (Phlexy-Vits) sennosides 8.6 mg capsule (senna) 17.2 mg (2 x 8.6 mg) PO BID #120 01/08/22 08/28/23 caps magnesium chloride 64 mg 128 mg PO BID 02/24/22 08/28/23 (magnesium chloride) tablet,delayed release (Mag-Delay) nystatin 100,000 unit/gram topical 1 applic topical BID #60 grams 09/29/22 08/28/23 powder baclofen 20 mg tablet 60 mg (3 x 20 mg) PO TID #270 tabs 02/27/23 08/28/23 diclofenac sodium 1 % topical gel 4 g topical QID PRN muscle pain 02/27/23 08/28/23 (Voltaren Arthritis Pain) #100 grams cholecalciferol (vitamin D3) 25 1,000 units PO DAILY 07/24/23 08/28/23 mcg (1,000 unit) tablet (Vitamin D3) methenamine hippurate 1 gram 1 g PO TID 07/24/23 08/28/23 tablet (Hiprex) sildenafil 100 mg tablet (Viagra) 100 mg PO DAILY PRN sexual activity 07/24/23 08/28/23 ascorbic acid (vitamin C) 500 mg See Rx Instructions .Route 08/04/23 08/28/23 tablet (Vitamin C) .COMPLEX #120 tabs nystatin 100,000 unit/gram topical 1 applic topical BID #60 grams 08/07/23 08/28/23 powder zolpidem 10 mg tablet 10 mg PO QHS PRN sleep #1 tab 08/07/23 08/28/23 divalproex 500 mg tablet,extended 1,000 mg (2 x 500 mg) PO DAILY #60 08/20/23 08/28/23 release 24 hr tabs lorazepam 1 mg tablet (Ativan) 1 mg PO .COMPLEX PRN anxiety #150 08/20/23 08/28/23 tabs naloxone 4 mg/actuation nasal 4 mg intranasal Q2M PRN opioid 08/21/23 08/28/23 spray (Narcan) overdose #2 ea buprenorphine HCl 75 mcg buccal 75 mcg buccal Q12H #60 ea 08/28/23 08/28/23 film hydromorphone 2 mg tablet 2 mg PO .q12 h PRN pain #28 tabs 08/28/23 08/28/23 Previous Rx's Medication Instructions Recorded Lactobacillus acidoph-L.bulgaricus 1 tab PO TID #90 tabs 01/08/22 1 million cell tablet (Floranex) acetaminophen 325 mg tablet 650 mg (2 x 325 mg) PO Q6H PRN PRN 01/08/22 (Tylenol) fever or pain #30 tabs docusate sodium 100 mg capsule 100 mg PO TID #90 caps 01/08/22 (Colace) mirabegron 25 mg tablet,extended 25 mg PO DAILY #30 tabs 01/08/22 release 24 hr (Myrbetriq) multivitamin,tx-minerals 1 tab PO DAILY #30 tabs 01/08/22 nutritional supplements 1 packet PO TID #90 ea 01/08/22 (Phlexy-Vits) sennosides 8.6 mg capsule (senna) 17.2 mg (2 x 8.6 mg) PO BID #120 01/08/22 caps nystatin 100,000 unit/gram topical 1 applic topical BID #60 grams 09/29/22 powder baclofen 20 mg tablet 60 mg (3 x 20 mg) PO TID #270 tabs 02/27/23 diclofenac sodium 1 % topical gel 4 g topical QID PRN muscle pain 02/27/23 (Voltaren Arthritis Pain) #100 grams ascorbic acid (vitamin C) 500 mg See Rx Instructions .Route 08/04/23 tablet (Vitamin C) .COMPLEX #120 tabs nystatin 100,000 unit/gram topical 1 applic topical BID #60 grams 08/07/23 powder zolpidem 10 mg tablet 10 mg PO QHS PRN sleep #1 tab 08/07/23 divalproex 500 mg tablet,extended 1,000 mg (2 x 500 mg) PO DAILY #60 08/20/23 release 24 hr tabs lorazepam 1 mg tablet (Ativan) 1 mg PO .COMPLEX PRN anxiety #150 08/20/23 tabs naloxone 4 mg/actuation nasal 4 mg intranasal Q2M PRN opioid 08/21/23 spray (Narcan) overdose #2 ea buprenorphine HCl 75 mcg buccal 75 mcg buccal Q12H #60 ea 08/28/23 film hydromorphone 2 mg tablet 2 mg PO .q12 h PRN pain #28 tabs 08/28/23 Allergies Allergy/AdvReac Type Severity Reaction Status Date / Time No Known Allergies Allergy Verified 08/19/23 17:14 General Stated Complaint: AMS/LOC LU: 2 PFSH All Active Problems (Updated 08/28/23 @ 20:59 by Nevaeh Ivey MD) Narcotic overdose (Acute) Urinary tract infection (Acute) Suicidal ideation (Acute) Chronic pain (Chronic) Abrasion of foot, right (Acute) Urinary tract infection (Acute) Anxiety disorder (Acute) History of UTI (Acute) Palliative care patient (Acute) Neck pain (Acute) Decubitus skin ulcer (Acute) Insomnia (Acute) Constipation due to neurogenic bowel (Acute) Chronic recurrent multifocal osteomyelitis (Chronic) Acute osteomyelitis of sacrum (Chronic) Major depressive disorder (Chronic) Neurogenic bladder (Chronic) Quadriplegia (Chronic) Medical History Acute embolism and thrombosis of deep vein of right lower extremity DIAMOND (acute kidney injury) Aspiration into airway Bladder stones Bronchospasm C. difficile colitis Constipation Decubitus ulcer of buttock, stage 4 Dislocation of C6/C7 cervical vertebrae DNR (do not resuscitate) DVT (deep venous thrombosis) DVT prophylaxis Encounter for wound care Fall down embankment Fusion of spine H/O deep venous thrombosis Hypokalemia Hypotension Ileus Insomnia Iron deficiency anemia Large bowel obstruction Low magnesium level Malnutrition following gastrointestinal surgery Muscle spasm Neurogenic bowel Open wound of abdominal wall Physician orders for life-sustaining treatment (POLST) form indicates patient wish for [id number] status Right arm pain Visit for wound check Weight gain Surgical History History of infusaport central venous catheter insertion S/P colostomy Suprapubic catheter Social History Smoking/Tobacco Use Status: Never Smoking risk assessment performed?: Yes Alcohol Intake: current Alcohol Intake frequency: holidays/special occasions only Substance use type: does not use Housing: house Do you feel safe at home: Yes Do you feel safe in your relationship?: Yes Course Vital Signs Vital signs: Vital Signs Temperature 37.1 C 08/28/23 16:15 Pulse 62 08/28/23 16:15 Respiratory Rate 14 08/28/23 16:15 Blood Pressure 91/45 L 08/28/23 16:15 Pulse Oximetry 94 08/28/23 16:15 Temperature 37.1 C 08/28/23 16:15 Temperature Source Tympanic 08/28/23 16:15 Pulse 62 08/28/23 16:15 Respiratory Rate 14 08/28/23 16:15 Blood Pressure 91/45 L 08/28/23 16:15 Pulse Oximetry 94 08/28/23 16:15 Oxygen Delivery Method Room Air 08/28/23 16:15 Oxygen Flow Rate 0 08/28/23 16:15
[2023-08-28] MEDS: Normal Saline 1,000 ML 1000 ML IV (17:26)
[2023-08-28] MEDS: Naloxone 0.4 MG/ML VIAL IVP (17:30)
[2023-08-28] MEDS: ACETAMINOPHEN 1,000 MG/100 ML BTL 400 MG IVPB (17:31)
[2023-08-28 17:41] LABS: BE (Venous) 3 mmol/L (-2-3); HCO3 (Venous) 28 mmol/L (23-28); O2 Sat (Venous) 71 %; TCO2 (Venous) 26 mmol/L (24-29); pCO2 (Venous) 51 mmHg (41-51); pH (Venous) 7.36 (7.31-7.41); pO2 (Venous) 39 mmHg
[2023-08-28 17:45] LABS: Abs Immature Grans 0.02 10^3/uL (0.0-0.06); Absolute Basophil Count 0.03 10^3/uL (0.0-0.2); Absolute Eosinophil Count 0.25 10^3/uL (0.0-0.7); Absolute Lymphocyte Count 1.31 10^3/uL (1.2-3.4); Absolute Monocyte Count 0.66 10^3/uL (0.1-0.8); Absolute Neutrophil Count 6.67 10^3/uL (1.2-6.7); Basophils % 0.3; Eosinophils % 2.8; HCT 36.7 % (40.0-50.0); HGB 12.2 g/dL (13.5-17.5); Immature Grans % 0.2; Lymphocytes % 14.7; MCH 29.2 pg (27.0-33.0); MCHC 33.2 % (32.0-36.0); MCV 88 fL (80-95); MPV 11.4 fL (8.0-11.0); Monocytes % 7.4; Neutrophils % 74.6; Platelet Count 123 10^3/uL (130-400); RBC 4.18 10^6/uL (4.36-5.78); RDW 13.6 % (11.8-14.1); RDW-SD 43.7 fL; WBC 8.94 10^3/uL (4.4-10.8)
[2023-08-28 18:00] VITALS: BP 110/72; PULSE 73; RESP 12; TEMP 37; O2SAT 98
[2023-08-28 18:00] LABS: ALT 20 U/L (16-63); AST 23 U/L (15-37); Albumin 3.4 g/dL (3.4-5.0); Alkaline Phosphatase 64 U/L (46-116); BUN 16 mg/dL (7-18); Bilirubin, Total 0.4 mg/dL (0.2-1.0); CREATININE 0.5 mg/dL (0.70-1.30); Calcium 9.7 mg/dL (8.5-10.1); Chloride 102 mmol/L (98-107); Estimated GFR 119.71 (mL/min/1.73m2); Glucose 88 mg/dL (74-106); Magnesium 1.7 mg/dL (1.8-2.4); Potassium 4.1 mmol/L (3.5-5.1); Sodium 137 mmol/L (136-145); Total Protein 6.9 g/dL (6.4-8.2); Troponin I < 50 ng/L (<or=60)
--- NOTE | 2023-08-28 18:15 | DI.RAD_ITS ---
Exam(s) XR PORTABLE CHEST AP EXAM: XR PORTABLE CHEST AP CLINICAL HISTORY: AMS. TECHNIQUE: 2D digital imaging was performed. COMPARISON: CR,XR XR PORTABLE CHEST AP from 07/28/2023 FINDINGS: Single AP portable view. Distal tip of the left subclavian Port-A-Cath is in good position at the SVC/RA junction. Heart size is upper normal. The mediastinum is not widened. No new right lung findings. Mild increased markings in the retrocardiac left lower lobe noted but ma y be vascular and appear unchanged. No pleural effusions. Fusion hardware in the lower cervical upper thoracic spine again noted. IMPRESSION: Subtle increased markings left lower lobe retrocardiac region. Cannot exclude mild infiltrate at thi s level. There are no pleural effusions. No pulmonary edema. DATA REPOSITORY: RADIATION DOSE DELIVERED:
[2023-08-28] MEDS: Ketorolac 30 MG/ML VIAL IVP (18:38)
[2023-08-28 19:11] LABS: Bilirubin Negative (Negative); Blood Small (Negative); Clarity Clear (Clear); Glucose Negative (Negative); Ketones 15 mg/dL (Negative); Leukocyte Esterase Small (Negative); Nitrite Positive (Negative); Specific Gravity 1.025 (1.005-1.025); Urobilinogen 0.2 mg/dL (Up to 0.2); pH 5.5 (5-8)
[2023-08-28 19:29] LABS: Bacteria Moderate HPF (Negative); Casts Negative LPF (Negative); Crystals Negative HPF (Negative); Epithelial Cells Rare HPF (Negative); Mucus Negative (Negative)
[2023-08-28 19:30] LABS: C & S Indicated? Yes
[2023-08-28] MEDS: HYDROmorphone 2 MG/ML SYR 1 MG IVP (20:22)
[2023-08-28 20:34] LABS: Ammonia < 10 umol/L (11-32)
[2023-08-28 21:13] VITALS: BP 110/72; PULSE 78; RESP 16; O2SAT 99
[2023-08-28] MEDS: Fosfomycin Tromethamine 3 GM PACKET PO (21:13)
--- NOTE | 2023-08-29 09:44 | NUR.NOTE ---
Accessed chart. Sticker of pt on Care Management clipboard. Looked up provider note and am faxing a referral to Palliative Care for medication change, call for additional questions. Discussed patient with Charley Lunsford. Nursing Note:
== END 2023-08-28 21:13 | disposition home or self-care (01) ==
PROVIDERS: Emergency Provider Emergency Medicine; PCP Family Medicine
DX: N39.0 Urinary tract infection, site not specified (principal); G82.50 Quadriplegia, unspecified; Z98.1 Arthrodesis status
CPT/HCPCS: 80053; 82805; 87077; 87186; 96361; 96374; 96375; 99283; 71045; 81003; 81015; 82140; 83735; 84484; 85025; 87086; J0131; J1170; J1885; J2310; J3490

== ENCOUNTER 2023-09-09 19:41 | Outpatient (REF) | payer MEDICARE, MEDICAID, SELFPAY ==
[2023-09-09 18:32] LABS: Bilirubin Negative (Negative); Blood Small (Negative); Clarity Turbid (Clear); Glucose Negative (Negative); Ketones Negative (Negative); Leukocyte Esterase Large (Negative); Nitrite Positive (Negative); Specific Gravity 1.015 (1.005-1.025); Urobilinogen 0.2 mg/dL (Up to 0.2); pH >= 9.0 (5-8)
[2023-09-09 18:49] LABS: Bacteria Many HPF (Negative); C & S Indicated? Yes; Crystals Many Triple Phos HPF (Negative); Epithelial Cells Rare HPF (Negative); Mucus Negative (Negative); WBC >50 HPF (0-5)
== END 2023-09-09 19:42 | disposition home or self-care (01) ==
LOC: NCHCN 19:41
PROVIDERS: PCP Family Medicine; Visit Provider Family Medicine
DX: N31.9 Neuromuscular dysfunction of bladder, unspecified (principal); Z43.5 Encounter for attention to cystostomy
CPT/HCPCS: 87077; 87186; 81003; 81015; 87086

== ENCOUNTER 2023-11-11 20:27 | Inpatient (IN) | payer MEDICARE, MEDICAID, SELFPAY ==
[2023-11-11] VITALS (37 sets, daily range): BP systolic 149–191; BP diastolic 61–110; PULSE 60–74; RESP 5–30; TEMP 36.9; O2SAT 95
--- NOTE | 2023-11-11 20:15 | DI.CT_ITS ---
Exam(s) CT CHEST/ABD/PEL WO EXAM: CT CHEST/ABD/PEL WO CLINICAL HISTORY: confused, altered, r/o stone/infection. TECHNIQUE: Imaging Protocol: Axial computed tomography images with coronal and sagittal reformatted images were created and reviewed CONTRAST MATERIAL: Intravenous: none Oral: None COMPARISON: CT CT ABDOMEN PELVIS W from 07/28/2023 FINDINGS: CHEST: There is abundant respiratory motion artifact on this study. Distal tip of Port-A-Cath is in the SVC. LUNGS: There is relatively symmetrical infiltrate in both lower lobes involving the superior segments of both lower lobes and extending down into the posterior basal segments. No significant pleural ef fusions.. MEDIASTINUM: No obvious hilar nor mediastinal adenopathy. Visualized thyroid unremarkable. CARDIAC: Heart size is normal. There is no pericardial effusion.Caliber of the thoracic aorta is wit hin normal limits. OSSEOUS: Fusion hardware noted in the lower cervical upper thoracic spine. No obvious acute fracture s. No significant osseous lesions.. ABDOMEN: There is no ascites. LIVER: There are no obvious focal hepatic lesions evident of this noninfused study. GALLBLADDER/BILIARY: No obvious gallbladder pathology. CBD is not dilated. PANCREAS: No evidence of obvious pancreatic mass nor dilatation of the pancreatic duct. SPLEEN: Spleen is not enlarged. No obvious intrasplenic lesions. ADRENALS: There are no significant adrenal masses. KIDNEYS: Left kidney unremarkable. There is a double pigtail stent on the right side extending from the renal pelvis down into the collapsed urinary bladder. No obvious calculi seen along the course o f the stent but this is difficult to assess accurately given the motion artifact here. No obvious hy dronephrosis.. No renal masses. ABDOMINAL AORTA: Abdominal aorta is not enlarged. LYMPH NODES: There is no retroperitoneal nor para-aortic adenopathy. ABDOMINAL WALL/GI: Left-sided ostomy again noted. No evidence of bowel obstruction. No free air. N o abscess. No ascites. PELVIS: LYMPH NODES: There is no intrapelvic nor inguinal adenopathy. GI: No evidence of appendicitis.No evidence of sigmoid diverticulitis. URINARY BLADDER: There is a suprapubic catheter in the urinary bladder again noted. Bladder is colla psed. REPRODUCTIVE: Prostate not enlarged. Seminal vesicles unremarkable. OSSEOUS: No significant osseous lesions. No fractures. IMPRESSION: 1. Bilateral lower lobe infiltrates consistent with pneumonia. These extend from the superior segmen ts of both lower lobes down to the posterior basal segments of both lower lobes. There are no associ ated pleural effusions. No intrathoracic adenopathy. 2. Double-pigtail right ureteral stent in place. No hydronephrosis. There is also suprapubic cathet er again noted in the urinary bladder. The bladder is not distended. 3. Left-sided ostomy again noted. No evidence of bowel obstruction, free air, nor abscess. RADIATION DOSE DELIVERED: 1,719.39mGy.cm Total DLP DATA REPOSITORY: All CT scans at this facility are submitted to the National Radiology Data Registry (NRDR) Dose Index Registry (DIR) with the [employer] ([employer]). RADIATION OPTIMIZATION: All CT scans at this facility use at least one of these dose optimization te chniques: automated exposure control; mA and/or kV adjustment per patient size (includes targeted exa ms where dose is matched to clinical indication); or iterative reconstruction.
--- NOTE | 2023-11-11 20:15 | DI.CT_ITS ---
Exam(s) CT HEAD WO EXAM: CT HEAD WO CLINICAL HISTORY: confused, altered, r/o stroke/mass. TECHNIQUE: Imaging Protocol: Axial computed tomography images with coronal and sagittal reformatted images were created and reviewed COMPARISON: CT CT BRAIN NECK CTA from 05/17/2023 FINDINGS: There are no skull fractures. There is a tiny amount of fluid in the left maxillary sinus. There is partial calcification in the right-side of the sphenoid sinus. There is also mucosal thickening and some fluid in the left frontal sinus. Also some fluid noted in the dependent right mastoid air cells . Left mastoid air cells are clear. There is no evidence of intracranial hemorrhage, mass effect, or shift of midline structures. There are no extra-axial fluid collections. The ventricles are not enlarged or shifted and there is no blo od within the ventricular system nor within the basal cisterns. IMPRESSION: No acute intracranial findings on this noninfused CT scan of the brain. RADIATION DOSE DELIVERED: 806.84mGy.cm Total DLP DATA REPOSITORY: All CT scans at this facility are submitted to the National Radiology Data Registry (NRDR) Dose Index Registry (DIR) with the [employer] ([employer]). RADIATION OPTIMIZATION: All CT scans at this facility use at least one of these dose optimization te chniques: automated exposure control; mA and/or kV adjustment per patient size (includes targeted exa ms where dose is matched to clinical indication); or iterative reconstruction.
[2023-11-11] MEDS: Normal Saline 500 ML IV (20:57)
[2023-11-11 21:08] LABS: BE (Venous) 1 mmol/L (-2-3); HCO3 (Venous) 25 mmol/L (23-28); O2 Sat (Venous) 98 %; TCO2 (Venous) 24 mmol/L (24-29); pCO2 (Venous) 38 mmHg (41-51); pH (Venous) 7.43 (7.31-7.41); pO2 (Venous) 103 mmHg
[2023-11-11 21:10] LABS: Lactate 0.7 mmol/L (0.6-1.4)
[2023-11-11 21:11] LABS: Abs Immature Grans 0.04 10^3/uL (0.0-0.06); Absolute Basophil Count 0.04 10^3/uL (0.0-0.2); Absolute Eosinophil Count 0.21 10^3/uL (0.0-0.7); Absolute Lymphocyte Count 1.58 10^3/uL (1.2-3.4); Absolute Monocyte Count 0.51 10^3/uL (0.1-0.8); Absolute Neutrophil Count 5.11 10^3/uL (1.2-6.7); Basophils % 0.5; Eosinophils % 2.8; HCT 29.6 % (40.0-50.0); HGB 9.7 g/dL (13.5-17.5); Immature Grans % 0.5; Lymphocytes % 21.1; MCH 29.4 pg (27.0-33.0); MCHC 32.8 % (32.0-36.0); MCV 90 fL (80-95); MPV 9.7 fL (8.0-11.0); Monocytes % 6.8; Neutrophils % 68.3; Platelet Count 355 10^3/uL (130-400); RDW 14.6 % (11.8-14.1); RDW-SD 46.8 fL; WBC 7.49 10^3/uL (4.4-10.8)
[2023-11-11 21:18] LABS: Bilirubin Negative (Negative); Blood Moderate (Negative); Clarity Turbid (Clear); Glucose Negative (Negative); Ketones Negative (Negative); Leukocyte Esterase Moderate (Negative); Nitrite Negative (Negative); Specific Gravity >= 1.030 (1.005-1.025); Urobilinogen 0.2 mg/dL (Up to 0.2)
[2023-11-11 21:29] LABS: ALT 22 U/L (16-63); AST 13 U/L (15-37); Albumin 2.5 g/dL (3.4-5.0); Alkaline Phosphatase 51 U/L (46-116); BUN 19 mg/dL (7-18); Bilirubin, Total 0.2 mg/dL (0.2-1.0); CREATININE 0.9 mg/dL (0.70-1.30); Calcium 9.2 mg/dL (8.5-10.1); Chloride 110 mmol/L (98-107); Estimated GFR 100.24 (mL/min/1.73m2); Glucose 111 mg/dL (74-106); Sodium 144 mmol/L (136-145); Total Protein 6.7 g/dL (6.4-8.2)
[2023-11-11 21:29] LABS: C & S Indicated? Yes; WBC >50 HPF (0-5)
--- NOTE | 2023-11-11 21:32 | DI.VRAD_ITS ---
PROCEDURE INFORMATION: Exam: CT Head Without Contrast Exam date and time: 11/11/2023 9:19 PM Age: 58 years old Clinical indication: Other: Confused, altered, TECHNIQUE: Imaging protocol: Computed tomography of the head without contrast. COMPARISON: CT BRAIN NECK CTA 05/17/2023 10:38 PM FINDINGS: Brain: Mild volume loss No hemorrhage. Unremarkable white matter. No mass effect. Cerebral ventricles: No ventriculomegaly. Paranasal sinuses: Mucosal thickening noted. No fluid levels. Mastoid air cells: Minimal right mastoid effusion. Bones/joints: Unremarkable. No acute fracture. Soft tissues: Unremarkable. IMPRESSION: No acute intracranial hemorrhage noted Dictated and Authenticated by: Sergio Miller MD. Ordering:HARJINDER Castellanos MD
--- NOTE | 2023-11-11 21:33 | ED.GENADUL_ITS ---
HPI General Stated Complaint: AMS/LOC LU: 3 Date/Time Provider Initiated Documentation: 11/11/23 20:27. HPI Narrative: 58-year-old male with a past medical history of quadriplegia secondary to a fall from a roof in 2019, neurogenic bladder and bowel, colostomy, chronic ischial pressure ulcer, chronic indwelling Beck/suprapubic, ureteral stent with plan for stent and stone removal on Thursday who is DNR/DNI who presents today via EMS from [place] for evaluation of confusion. History is obviously very limited from the patient who is slightly confused, mother who is at bedside states that he was recently discharged from [facility] yesterday on 11/10/2023. He was admitted initially at [facility] and then [facility] for pneumonia and UTI. (Of note his entire visit is under the incorrect name of NORBERTO BARRIOS). He is on broad-spectrum antibiotics including Zosyn while he was there. He was discharged and doing well. However today he was noted to be slightly confused per his care provider. No fever or any other abnormalities at home otherwise. Because of this confusion he was brought to the ER here at [facility] for further assessment. Patient has no complaints and does not add to the history. Mother denies any other complaints or historical components. Related Data Home Medications Medication Instructions Recorded Confirmed Lactobacillus acidoph-L.bulgaricus 1 tab PO TID #90 tabs 01/08/22 11/11/23 1 million cell tablet (Floranex) acetaminophen 325 mg tablet 650 mg (2 x 325 mg) PO Q6H PRN PRN 01/08/22 11/11/23 (Tylenol) fever or pain #30 tabs docusate sodium 100 mg capsule 100 mg PO TID #90 caps 01/08/22 11/11/23 (Colace) mirabegron 25 mg tablet,extended 25 mg PO DAILY #30 tabs 01/08/22 11/11/23 release 24 hr (Myrbetriq) multivitamin,tx-minerals 1 tab PO DAILY #30 tabs 01/08/22 11/11/23 nutritional supplements 1 packet PO TID #90 ea 01/08/22 11/11/23 (Phlexy-Vits) sennosides 8.6 mg capsule (senna) 17.2 mg (2 x 8.6 mg) PO BID #120 03/09/22 01/10/24 caps magnesium chloride 64 mg 128 mg PO BID 02/24/22 11/11/23 (magnesium chloride) tablet,delayed release (Mag-Delay) diclofenac sodium 1 % topical gel 4 g topical QID PRN muscle pain 02/27/23 11/11/23 (Voltaren Arthritis Pain) #100 grams cholecalciferol (vitamin D3) 25 1,000 units PO DAILY 07/24/23 11/11/23 mcg (1,000 unit) tablet (Vitamin D3) methenamine hippurate 1 gram 1 g PO TID 07/24/23 11/11/23 tablet (Hiprex) sildenafil 100 mg tablet (Viagra) 100 mg PO DAILY PRN sexual activity 07/24/23 11/11/23 ascorbic acid (vitamin C) 500 mg See Rx Instructions .Route 08/04/23 11/11/23 tablet (Vitamin C) .COMPLEX #120 tabs nystatin 100,000 unit/gram topical 1 applic topical BID #60 grams 08/07/23 11/11/23 powder zolpidem 10 mg tablet 10 mg PO QHS PRN sleep #1 tab 08/07/23 11/11/23 divalproex 500 mg tablet,extended 1,000 mg (2 x 500 mg) PO DAILY #60 08/20/23 11/11/23 release 24 hr tabs lorazepam 1 mg tablet (Ativan) 1 mg PO .COMPLEX PRN anxiety #150 08/20/23 11/11/23 tabs naloxone 4 mg/actuation nasal 4 mg intranasal Q2M PRN opioid 08/21/23 11/11/23 spray (Narcan) overdose #2 ea baclofen 20 mg tablet 60 mg (3 x 20 mg) PO TID #270 tabs 09/28/23 11/11/23 pregabalin 25 mg capsule 25 mg PO TID #90 caps 10/12/23 11/11/23 quetiapine 25 mg tablet (Seroquel) 25 mg PO QHS #90 tabs 10/19/23 11/11/23 Previous Rx's Medication Instructions Recorded Lactobacillus acidoph-L.bulgaricus 1 tab PO TID #90 tabs 01/08/22 1 million cell tablet (Floranex) acetaminophen 325 mg tablet 650 mg (2 x 325 mg) PO Q6H PRN PRN 01/08/22 (Tylenol) fever or pain #30 tabs docusate sodium 100 mg capsule 100 mg PO TID #90 caps 01/08/22 (Colace) mirabegron 25 mg tablet,extended 25 mg PO DAILY #30 tabs 01/08/22 release 24 hr (Myrbetriq) multivitamin,tx-minerals 1 tab PO DAILY #30 tabs 01/08/22 nutritional supplements 1 packet PO TID #90 ea 01/08/22 (Phlexy-Vits) sennosides 8.6 mg capsule (senna) 17.2 mg (2 x 8.6 mg) PO BID #120 01/08/22 caps diclofenac sodium 1 % topical gel 4 g topical QID PRN muscle pain 02/27/23 (Voltaren Arthritis Pain) #100 grams ascorbic acid (vitamin C) 500 mg See Rx Instructions .Route 08/04/23 tablet (Vitamin C) .COMPLEX #120 tabs nystatin 100,000 unit/gram topical 1 applic topical BID #60 grams 08/07/23 powder zolpidem 10 mg tablet 10 mg PO QHS PRN sleep #1 tab 08/07/23 divalproex 500 mg tablet,extended 1,000 mg (2 x 500 mg) PO DAILY #60 08/20/23 release 24 hr tabs lorazepam 1 mg tablet (Ativan) 1 mg PO .COMPLEX PRN anxiety #150 08/20/23 tabs naloxone 4 mg/actuation nasal 4 mg intranasal Q2M PRN opioid 08/21/23 spray (Narcan) overdose #2 ea baclofen 20 mg tablet 60 mg (3 x 20 mg) PO TID #270 tabs 09/28/23 pregabalin 25 mg capsule 25 mg PO TID #90 caps 10/12/23 quetiapine 25 mg tablet (Seroquel) 25 mg PO QHS #90 tabs 10/19/23 Allergies Allergy/AdvReac Type Severity Reaction Status Date / Time No Known Allergies Allergy Verified 11/11/23 20:29 Review of Systems All systems reviewed & are unremarkable except as noted in HPI and below PFSH All Active Problems (Updated 11/11/23 @ 23:47 by Emanuel Phan DO) Acute confusion (Acute) Urinary tract infection (Acute) Abrasion of foot, right (Acute) Urinary tract infection (Acute) Anxiety disorder (Acute) History of UTI (Acute) Palliative care patient (Acute) Neck pain (Acute) Decubitus skin ulcer (Acute) Insomnia (Acute) Constipation due to neurogenic bowel (Acute) Chronic recurrent multifocal osteomyelitis (Chronic) Acute osteomyelitis of sacrum (Chronic) Major depressive disorder (Chronic) Neurogenic bladder (Chronic) Quadriplegia (Chronic) Medical History Muscle spasm Bladder stones Bronchospasm Insomnia Weight gain DIAMOND (acute kidney injury) Low magnesium level Open wound of abdominal wall Encounter for wound care Visit for wound check Right arm pain Malnutrition following gastrointestinal surgery Large bowel obstruction Iron deficiency anemia Hypokalemia Aspiration into airway Ileus Neurogenic bowel Physician orders for life-sustaining treatment (POLST) form indicates patient wish for [id number] status DNR (do not resuscitate) Decubitus ulcer of buttock, stage 4 H/O deep venous thrombosis DVT (deep venous thrombosis) DVT prophylaxis Constipation Fall down embankment Hypotension Acute embolism and thrombosis of deep vein of right lower extremity Fusion of spine Dislocation of C6/C7 cervical vertebrae C. difficile colitis Surgical History History of infusaport central venous catheter insertion Suprapubic catheter S/P colostomy Social History Smoking/Tobacco Use Status: Never Smoking risk assessment performed?: Yes Alcohol Intake: current Alcohol Intake frequency: holidays/special occasions only Substance use type: does not use Housing: house Do you feel safe at home: Yes Do you feel safe in your relationship?: Yes Exam Narrative Exam Narrative: 1.Const: Well-nourished, Well-developed, appearing stated age 2.Eyes: PERRL, no conjunctival injection, and symmetrical lids. 3.ENT: Atraumatic external nose and ears. Moist MM. Neck: Symmetric, trachea midline, No thyromegaly. 4.CVS: +S1/S2, No murmurs or gallops. Peripheral pulses 2+ and equal in all extremities. Brisk capillary refill in all extremities. 5.RESP: Unlabored respiratory effort. Clear to auscultation bilaterally. No wheezes rales or rhonchi 6.GI: Soft, Nontender/Nondistended, No hepatosplenomegaly. No guarding or rebound. Ostomy is in place. Small amount of nonbloody stool is present. Suprapubic site is in place with no drainage or redness or erythema. 7.MSK: Normocephalic/Atraumatic, chronic contractures of the upper extremities. Lower extremities) pressure boots. 8.Skin: Chronic sacral ulcer present. 9.Neuro: Partial quadriplegia, unable to move lower extremities. 10.Psych: (AAO) x0. Confused Course Vital Signs Vital signs: Vital Signs Respiratory Rate 18 11/11/23 20:28 Temperature 36.9 C 11/11/23 20:57 Temperature Source Oral 11/11/23 20:57 Pulse 63 11/11/23 20:57 Pulse 64 11/11/23 20:50 Respiratory Rate 13 11/11/23 20:57 Respiratory Effort Normal, Non-Labored 11/11/23 20:57 Respiratory Depth Normal 11/11/23 20:57 Respiratory Pattern Normal 11/11/23 20:57 Blood Pressure 159/84 H 11/11/23 20:57 Blood Pressure Mean 106 11/11/23 20:46 Blood Pressure Position Supine 11/11/23 20:57 Pulse Oximetry 95 11/11/23 20:57 Oxygen Delivery Method Room Air 11/11/23 20:57 Oxygen Flow Rate 0 11/11/23 20:57 Pain Level 0 11/11/23 20:57 Lab/Test Results Lab/Test Results: 11/11/23 20:42 Urine - Reflex from Ua Urine Culture - Pending 11/11/23 20:18 Blood Blood Culture - Pending 11/11/23 20:44 Blood Blood Culture - Pending Laboratory Tests Range/Units 11/11/23 11/11/23 20:18 20:42 WBC (4.4-10.8) 10^3/uL 7.49 RBC (4.36-5.78) 10^6/uL 3.30 L Hgb (13.5-17.5) g/dL 9.7 L Hct (40.0-50.0) % 29.6 L MCV (80-95) fL 90 MCH (27.0-33.0) pg 29.4 MCHC (32.0-36.0) % 32.8 RDW (11.8-14.1) % 14.6 H Plt Count (130-400) 10^3/uL 355 MPV (8.0-11.0) fL 9.7 Immature Gran % 0.5 Neutrophils % 68.3 Lymphocytes % 21.1 Monocytes % 6.8 Eosinophils % 2.8 Basophils % 0.5 Nucleated RBC % (0.0-0.3) % 0.0 Absolute Neutrophils (1.2-6.7) 10^3/uL 5.11 Absolute Lymphocytes (1.2-3.4) 10^3/uL 1.58 Absolute Monocytes (0.1-0.8) 10^3/uL 0.51 Absolute Eosinophils (0.0-0.7) 10^3/uL 0.21 Absolute Basophils (0.0-0.2) 10^3/uL 0.04 VBG pH (7.31-7.41) 7.43 H VBG pCO2 (41-51) mmHg 38 L VBG pO2 mmHg 103 VBG HCO3 (23-28) mmol/L 25 VBG Total CO2 (24-29) mmol/L 24 VBG O2 Saturation % 98 VBG Base Excess (-2-3) mmol/L 1 VBG Lactate (0.6-1.4) mmol/L 0.7 Sodium (136-145) mmol/L 144 Potassium (3.5-5.1) mmol/L 4.0 Chloride (98-107) mmol/L 110 H Carbon Dioxide (21.0-32.0) mmol/L 25.0 Anion Gap (3-11) mmol/L 9.0 BUN (7-18) mg/dL 19 H Creatinine (0.70-1.30) mg/dL 0.9 Est GFR (CKD-EPI 2020) (mL/min/1.73m2) 100.24 Glucose (74-106) mg/dL 111 H Calcium (8.5-10.1) mg/dL 9.2 Total Bilirubin (0.2-1.0) mg/dL 0.2 AST (15-37) U/L 13 L ALT (16-63) U/L 22 Alkaline Phosphatase (46-116) U/L 51 Total Protein (6.4-8.2) g/dL 6.7 Albumin (3.4-5.0) g/dL 2.5 L Urine Color (Yellow) Yellow Urine Clarity (Clear) Turbid Urine pH (5-8) 6.0 Ur Specific [place] (1.005-1.025) >= 1.030 H Urine Protein (Negative) mg/dL 100 H Urine Ketones (Negative) mg/dL Negative Urine Blood (Negative) Moderate H Urine Nitrite (Negative) Negative Urine Bilirubin (Negative) Negative Urine Urobilinogen (Up to 0.2) mg/dL 0.2 Ur Leukocyte Esterase (Negative) Moderate H Urine RBC Not Applicable Urine WBC (0-5) HPF >50 H Ur Epithelial Cells Not Applicable Urine Crystals Not Applicable Urine Bacteria Not Applicable Urine Mucus Not Applicable Ur Culture Indicated? Yes Urine Glucose (Negative) mg/dL Negative Medical Decision Making 58-year-old male with a past medical history of quadriplegia secondary to a fall from a roof in 2019, neurogenic bladder and bowel, colostomy, chronic ischial pressure ulcer, chronic indwelling Beck/suprapubic, ureteral stent with plan for stent and stone removal on Thursday who is DNR/DNI who presents today via EMS from [place] for evaluation of confusion. History is obviously very limited from the patient who is slightly confused, mother who is at bedside formerly [facility] that he was recently discharged from [facility] yesterday on 11/10/2023. He was admitted initially at [facility] and then [facility] for pneumonia and UTI. (Of note his entire visit is under the incorrect name of NORBERTO BARRIOS). He is on broad-spectrum antibiotics including Zosyn while he was there. He was discharged and doing well. However today he was noted to be slightly confused per his care provider. No fever or any other abnormalities at home otherwise. Because of this confusion he was brought to the ER here at [facility] for further assessment. Patient has no complaints and does not add to the history. Mother denies any other complaints or historical components. Exam demonstrates clear lungs, nontender abdomen, chronic ulcer in the sacral region is present. Does not appear to be new ulcers in the feet. Patient is confused. No nuchal tenderness or rigidity. Patient is afebrile, vital signs normal. Symptoms inconsistent with sepsis or septic shock. Family is very concerned for potential infectious etiology. Acute intracranial etiology is on the differential for cause of his symptoms, hypercarbia, or electrolyte abnormality. We will evaluate for infectious sources, will get CT scans of the chest abdomen pelvis, as well as 1 at the brain. Will check for thyroid dysfunction, monitor closely and reassess. 11:08 PM Laboratory workup is returned, no white count or bandemia or left shift. VBG is normal with no significant hypercarbia. Lactate is normal. Procalcitonin is normal. Electrolytes are normal, renal function is good. Thyroid function is normal. Urinalysis shows moderate leuk esterase with greater than 50 WBCs which is essentially his baseline for his previous urinalyses with his chronic indwelling Beck catheter. CT scan of the head is negative for acute process. CT scan of the chest demonstrates lower lobe atelectasis and small consolidations, likely pneumonia. No acute process in the abdomen otherwise. The right double-J ureteral stent is in place with calcification surrounding the proximal and distal aspects, but no evidence of hydronephrosis or obstruction. Patient remains mildly confused. Concern for potential early infection although laboratory workup shows no evidence of septic shock, or hemodynamic decompensation at this stage. Family does not feel comfortable going home. I did reach out to [facility] and they refuse admission at this time secondary to capacity issues. We will contact the hospitalist for admission. 11:45 PM Discussed the case with the hospitalist Dr. Murillo. She agrees with the plan. Will start Zosyn. Will change out the suprapubic catheter. I have extensively reviewed the treatment plan with the patient. I have addressed all patient concerns at this time. I have also discussed the plan with the admitting physician and they agree with the current assessment and plan and have agreed to assume responsibility for the patient. All parties demonstrate verbal understanding and agreement with our assessment and plan at this time. The documentation in this chart was dictated using [employer] dictation software. Please excuse any dictation errors. FINDINGS: Brain: Mild volume loss No hemorrhage. Unremarkable white matter. No mass effect. Cerebral ventricles: No ventriculomegaly. Paranasal sinuses: Mucosal thickening noted. No fluid levels. Mastoid air cells: Minimal right mastoid effusion. Bones/joints: Unremarkable. No acute fracture. Soft tissues: Unremarkable. IMPRESSION: No acute intracranial hemorrhage noted Thank you for allowing us to participate in the care of your patient. Dictated and Authenticated by: Sergio Miller MD 11/11/2023 9:32 PM Eastern Time ([place] & [place]) FINDINGS: Tubes, catheters and devices: Left subclavian central venous catheter tip in the lower superior vena cava. Lungs: Bilateral posterior lower lobe atelectasis and small consolidations, likely pneumonias. Pleural spaces: Unremarkable. No pneumothorax. No pleural effusion. Heart: Normal. Coronary arteries: Atherosclerotic calcification of the visualized left anterior descending and right coronary arteries. Lymph nodes: Few small lymph nodes in the mediastinum, likely reactive. Vasculature: Unremarkable. No aortic aneurysm. Bones/joints: Multilevel cervicothoracic spine posterior fusion changes partially visualized. Soft tissues: Normal. IMPRESSION: Bilateral posterior lower lobe atelectasis and small consolidations, likely pneumonias. Recommend follow-up FINDINGS: Tubes, catheters and devices: Suprapubic urinary bladder catheter present, with decompressed urinary bladder. Liver: Normal. Gallbladder and bile ducts: Normal Pancreas: Normal. Spleen: Normal. Adrenal glands: Normal. No mass. Kidneys and ureters: Right double-J ureteral stent, with calcifications surrounding the proximal and distal pigtail portions of the stent. No hydronephrosis. Stomach and bowel: Left lower quadrant colostomy. Few loops of nondilated, gas and fluid-filled small bowel, which is a nonspecific finding, but can be seen with enteritis. Appendix: No evidence of appendicitis. Intraperitoneal space: Unremarkable. No free air. No significant fluid collection. Vasculature: Atherosclerotic disease of the abdominal aorta and iliac arteries. Lymph nodes: Unremarkable. No enlarged lymph nodes. Urinary bladder: Unremarkable as visualized. Reproductive: Unremarkable as visualized. Bones/joints: Generalized bony demineralization. Multilevel lumbar spine degenerative disc space narrowing and osteophyte formation. Soft tissues: Normal. IMPRESSION: Few loops of nondilated, gas and fluid-filled small bowel, which is a nonspecific finding, but can be seen with enteritis. Thank you for allowing us to participate in the care of your patient. Dictated and Authenticated by: Blade Marroquin MD 11/11/2023 10:02 PM Eastern Time ([place] & [place]) Quality:SDOH Health Related Social Needs: No Data to Display Discharge Plan Disposition Patient Disposition: Admit to [facility] Condition: Stable Discharge Details Chief Complaint: AMS/LOC Clinical Impression: Urinary tract infection, Acute confusion Primary Care Provider: Genevieve Baez ED Provider: Sylvester,Emanuel R Home Meds and New Rx's Prescriptions: No Action diclofenac sodium [Voltaren Arthritis Pain] 1 % gel 4 g topical QID PRN (Reason: muscle pain) Qty: 100 5RF Rx Instructions: apply to painful muscles naloxone [Narcan] 4 mg/actuation spray,non-aerosol 4 mg intranasal Q2M PRN (Reason: opioid overdose) Qty: 2 4RF Rx Instructions: spray 1 dose into ONE nostril; alternate nostrils w each dose until help arrives baclofen 20 mg tablet 60 mg PO TID Qty: 270 6RF zolpidem 10 mg tablet 10 mg PO QHS PRN (Reason: sleep) Qty: 1 0RF Rx Instructions: rx by Dr Recinos nystatin 100,000 unit/gram powder 1 applic topical BID Qty: 60 4RF quetiapine [Seroquel] 25 mg tablet 25 mg PO QHS Qty: 90 4RF ascorbic acid (vitamin C) [Vitamin C] 500 mg tablet See Rx Instructions .ROUTE .COMPLEX Qty: 120 11RF Dose Instruction: TAKE 1 TABLET BY MOUTH FOUR TIMES A DAY Rx Instructions: TAKE 1 TABLET BY MOUTH FOUR TIMES A DAY divalproex 500 mg tablet extended release 24 hr 1,000 mg PO DAILY Qty: 60 12RF lorazepam [Ativan] 1 mg tablet 1 mg PO .COMPLEX MDD 5mg PRN (Reason: anxiety) Qty: 150 2RF Rx Instructions: 1 mg orally TID and 2 additional tabs PRN PRN; pregabalin 25 mg capsule 25 mg PO TID Qty: 90 5RF sildenafil [Viagra] 100 mg tablet 100 mg PO DAILY PRN (Reason: sexual activity) Rx Instructions: administer 30 minutes to 4 hours before activity. Call [employer] for credit card number. He knows its self pay methenamine hippurate [Hiprex] 1 gram tablet 1 g PO TID cholecalciferol (vitamin D3) [Vitamin D3] 25 mcg (1,000 unit) tablet 1,000 units PO DAILY Phlexy-Vits Powder In Packet 1 packet PO TID Qty: 90 0RF Myrbetriq 25 mg Tablet Extended Release 24 Hr 25 mg PO DAILY Qty: 30 0RF Patient Comments: pt. reports he probably took yesterday acetaminophen [Tylenol] 325 mg tablet 650 mg PO Q6H PRN PRN (Reason: fever or pain) Qty: 30 0RF docusate sodium [Colace] 100 mg capsule 100 mg PO TID Qty: 90 0RF multivitamin,tx-minerals Tablet 1 tab PO DAILY Qty: 30 0RF senna 8.6 mg capsule 17.2 mg PO BID Qty: 120 0RF Lactobacillus acidoph-L.bulgar [Floranex] 1 million cell tablet 1 tab PO TID Qty: 90 0RF Mag-Delay 64 mg tablet,delayed release (DR/EC) 128 mg PO BID
[2023-11-11 21:38] LABS: TSH (W/Ref FT4) 1.78 uIU/mL (0.36-3.74)
[2023-11-11 21:48] LABS: Procalcitonin < 0.1 ng/mL
--- NOTE | 2023-11-11 22:02 | DI.VRAD_ITS ---
PROCEDURE INFORMATION: Exam: CT Chest Without Contrast; Diagnostic Exam date and time: 11/11/2023 9:21 PM Age: 58 years old Clinical indication: Other: R/O stone/infection TECHNIQUE: Imaging protocol: Diagnostic computed tomography of the chest without contrast. COMPARISON: CT CHEST PE CTA 05/10/2023 1:59 AM FINDINGS: Tubes, catheters and devices: Left subclavian central venous catheter tip in the lower superior vena cava. Lungs: Bilateral posterior lower lobe atelectasis and small consolidations, likely pneumonias. Pleural spaces: Unremarkable. No pneumothorax. No pleural effusion. Heart: Normal. Coronary arteries: Atherosclerotic calcification of the visualized left anterior descending and right coronary arteries. Lymph nodes: Few small lymph nodes in the mediastinum, likely reactive. Vasculature: Unremarkable. No aortic aneurysm. Bones/joints: Multilevel cervicothoracic spine posterior fusion changes partially visualized. Soft tissues: Normal. IMPRESSION: Bilateral posterior lower lobe atelectasis and small consolidations, likely pneumonias. Recommend follow-up. PROCEDURE INFORMATION: Exam: CT Abdomen And Pelvis Without Contrast Exam date and time: 11/11/2023 9:21 PM Age: 58 years old Clinical indication: Other: R/O stone/infection TECHNIQUE: Imaging protocol: Computed tomography of the abdomen and pelvis without contrast. COMPARISON: CT ABDOMEN PELVIS W 07/28/2023 8:28 PM FINDINGS: Tubes, catheters and devices: Suprapubic urinary bladder catheter present, with decompressed urinary bladder. Liver: Normal. Gallbladder and bile ducts: Normal Pancreas: Normal. Spleen: Normal. Adrenal glands: Normal. No mass. Kidneys and ureters: Right double-J ureteral stent, with calcifications surrounding the proximal and distal pigtail portions of the stent. No hydronephrosis. Stomach and bowel: Left lower quadrant colostomy. Few loops of nondilated, gas and fluid-filled small bowel, which is a nonspecific finding, but can be seen with enteritis. Appendix: No evidence of appendicitis. Intraperitoneal space: Unremarkable. No free air. No significant fluid collection. Vasculature: Atherosclerotic disease of the abdominal aorta and iliac arteries. Lymph nodes: Unremarkable. No enlarged lymph nodes. Urinary bladder: Unremarkable as visualized. Reproductive: Unremarkable as visualized. Bones/joints: Generalized bony demineralization. Multilevel lumbar spine degenerative disc space narrowing and osteophyte formation. Soft tissues: Normal. IMPRESSION: Few loops of nondilated, gas and fluid-filled small bowel, which is a nonspecific finding, but can be seen with enteritis. Dictated and Authenticated by: Blade Marroquin MD. Ordering:HARJINDER Castellanos MD
--- NOTE | 2023-11-11 23:44 | HPE_ITS ---
Date of service: 11/11/23 Time of Service: 23:44 Assessment and Plan Assessment and plan (1) Urinary tract infection: Assessment and plan: Present on admission, associated with a suprapubic catheter and a R ureteral stent in place with underlying nephrolithiasis. ER was asked to exchange the suprapubic catheter - we will follow up this up. Continue zosyn initiated in the ED. Obtain culture data from [facility]. Await blood cultures. C/s urology. (2) COVID-19: Status: Inactive Assessment and plan: Treat with remdesivir. Encourage pulmonary toilet. Could be the cause of both pulmonary infiltrates and the encephalopathy. (3) Bilateral pneumonia: Assessment and plan: Present on admission. In setting of atelectasis and COVID-19. Check MRSA nares. Continue zosyn initiated in the ED. Encourage IS/acepella. (4) Toxic metabolic encephalopathy: Status: Resolved Assessment and plan: In setting of a UTI, Pneumonia, COVID-19. Monitor mental status as we are treating above processes. (5) Atelectasis: Assessment and plan: Encourage pulmonary toilet. (6) Acute on chronic anemia: Assessment and plan: Obtain anemia studies including hematest. (7) Quadriplegia: Status: Chronic Assessment and plan: C/S PT, OT, palliative care. (8) Neurogenic bladder: Assessment and plan: S/p suprapubic catheter. As above (9) DVT prophylaxis: Assessment and plan: Lovenox SC (10) Discharge planning issues: Assessment and plan: DNR/DNI C/s PT, OT, palliative care History of Present Illness History of Present Illness Chief Complaint: Confused at home, out of it. 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 CT head was negative. The patient did have a urinalysis c/w a UTI. For this, he was started on zosyn. CT chest does show likely bilateral atelectasis and likely pneumonia. He also tested positive for COVID-19. He is not requiring oxygen. A hospitalist admission was requested. An exchange of a suprapubic catheter was recommended. Review of Systems All systems reviewed & are unremarkable except as noted in HPI and below PFSH All Active Problems (Updated 11/26/23 @ 00:06 by IVONNE LEMA) Abrasion of foot, right (Acute) Urinary tract infection (Acute) History of UTI (Acute) Palliative care patient (Acute) Neck pain (Acute) Decubitus skin ulcer (Acute) Constipation due to neurogenic bowel (Acute) Chronic recurrent multifocal osteomyelitis (Chronic) Acute osteomyelitis of sacrum (Chronic) Major depressive disorder (Chronic) Quadriplegia (Chronic) Medical History Muscle spasm Bladder stones Bronchospasm Insomnia Weight gain DIAMOND (acute kidney injury) Low magnesium level Open wound of abdominal wall Encounter for wound care Visit for wound check Right arm pain Malnutrition following gastrointestinal surgery Large bowel obstruction Iron deficiency anemia Hypokalemia Aspiration into airway Ileus Neurogenic bowel Physician orders for life-sustaining treatment (POLST) form indicates patient wish for [id number] status DNR (do not resuscitate) Decubitus ulcer of buttock, stage 4 H/O deep venous thrombosis DVT (deep venous thrombosis) DVT prophylaxis Constipation Fall down embankment Hypotension Acute embolism and thrombosis of deep vein of right lower extremity Fusion of spine Dislocation of C6/C7 cervical vertebrae C. difficile colitis Surgical History History of infusaport central venous catheter insertion Suprapubic catheter S/P colostomy Social History (System 11/19/23 @ 12:49 by Naomi Devine) Smoking/Tobacco Use Status: Never Smoking risk assessment performed?: Yes Alcohol Intake: current Alcohol Intake frequency: holidays/special occasions only Substance use type: does not use Housing: house Do you feel safe at home: Yes Do you feel safe in your relationship?: Yes Meds Allergies and Home Medications Allergies Allergy/AdvReac Type Severity Reaction Status Date / Time No Known Allergies Allergy Verified 11/19/23 12:49 Home Medications Medication Instructions Recorded Confirmed Type Lactobacillus acidoph-L.bulgaricus 1 tab PO TID #90 tabs 01/08/22 11/11/23 Rx 1 million cell tablet (Floranex) acetaminophen 325 mg tablet 650 mg (2 x 325 mg) PO Q6H PRN PRN 01/08/22 11/11/23 Rx (Tylenol) fever or pain #30 tabs docusate sodium 100 mg capsule 100 mg PO TID #90 caps 01/08/22 11/11/23 Rx (Colace) mirabegron 25 mg tablet,extended 25 mg PO DAILY #30 tabs 01/08/22 11/11/23 Rx release 24 hr (Myrbetriq) nutritional supplements 1 packet PO TID #90 ea 01/08/22 11/11/23 Rx (Phlexy-Vits) magnesium chloride 64 mg 128 mg PO BID 02/24/22 11/11/23 History (magnesium chloride) tablet,delayed release (Mag-Delay) diclofenac sodium 1 % topical gel 4 g topical QID PRN muscle pain 02/27/23 11/11/23 Rx (Voltaren Arthritis Pain) #100 grams cholecalciferol (vitamin D3) 25 1,000 units PO DAILY 07/24/23 11/11/23 History mcg (1,000 unit) tablet (Vitamin D3) methenamine hippurate 1 gram 1 g PO TID 07/24/23 11/11/23 History tablet (Hiprex) sildenafil 100 mg tablet (Viagra) 100 mg PO DAILY PRN sexual activity 07/24/23 11/11/23 History ascorbic acid (vitamin C) 500 mg See Rx Instructions .Route 08/04/23 11/11/23 Rx tablet (Vitamin C) .COMPLEX #120 tabs nystatin 100,000 unit/gram topical 1 applic topical BID #60 grams 08/07/23 11/11/23 Rx powder zolpidem 10 mg tablet 10 mg PO QHS PRN sleep #1 tab 08/07/23 11/11/23 Rx divalproex 500 mg tablet,extended 1,000 mg (2 x 500 mg) PO DAILY #60 08/20/23 11/11/23 Rx release 24 hr tabs lorazepam 1 mg tablet (Ativan) 1 mg PO .COMPLEX PRN anxiety #150 08/20/23 11/11/23 Rx tabs naloxone 4 mg/actuation nasal 4 mg intranasal Q2M PRN opioid 08/21/23 11/11/23 Rx spray (Narcan) overdose #2 ea baclofen 20 mg tablet 60 mg (3 x 20 mg) PO TID #270 tabs 09/28/23 11/11/23 Rx pregabalin 25 mg capsule 25 mg PO TID #90 caps 10/12/23 11/11/23 Rx quetiapine 25 mg tablet (Seroquel) 25 mg PO QHS #90 tabs 10/19/23 11/11/23 Rx baclofen 20 mg tablet 20 mg PO TID 11/11/23 History divalproex 500 mg tablet,extended 500 mg PO DAILY 11/11/23 History release 24 hr (Depakote ER) docusate sodium 100 mg capsule 100 mg PO TID 11/11/23 History (Col-Rite) heparin (porcine) 5,000 unit/mL (1 5,000 unit subcut Q8H 11/11/23 History mL) injection cartridge ipratropium 0.5 mg-albuterol 3 mg 3 ml inhalation Q4H PRN 11/11/23 History (2.5 mg base)/3 mL nebulization soln melatonin 3 mg tablet 6 mg PO DAILY 11/11/23 History mirabegron 25 mg tablet,extended 25 mg PO DAILY 11/11/23 History release 24 hr (Myrbetriq) multivitamin 1 tab PO DAILY 11/11/23 History pantoprazole 40 mg tablet,delayed 40 mg PO DAILY 11/11/23 History release (Protonix) pregabalin 25 mg capsule (Lyrica) 25 mg PO TID 11/11/23 History sennosides 8.6 mg tablet (Senokot) 34.4 mg PO DAILY 11/11/23 History sodium chloride 7 % for 1 inh inhalation BID 11/11/23 History nebulization (Hyper-Daniel) tamsulosin 0.4 mg capsule (Flomax) 0.4 mg PO DAILY 11/11/23 History trazodone 50 mg tablet 50 mg PO DAILY 11/11/23 History ynwqwfct-trs-mkjfk acid 0.4 1 tab PO DAILY 11/12/23 11/12/23 History mg-lycopene 300 mcg-lutein 250 mcg tablet (Adults 50 Plus) sennosides 8.6 mg tablet (senna) 17.2 mg PO BID 11/12/23 11/12/23 History tamsulosin 0.4 mg capsule 0.4 mg PO DAILY 11/12/23 11/12/23 History Exam Narrative Exam Narrative: General: middle-aged male who is paraplegic, A&Ox3, appears to be at his baseline mental status, on RA, no dyspnea/tachypnea/cyanosis Neurological: A&Ox3, see above Psychiatric: Appropriate speech pattern/content Skin: Visible skin intact HEENT: Atraumatic, normocephalic, EOMI, MMM, clear oropharynx, no submandibular or cervical lymphadenopathy, no goiter or JVD Cardiovascular: RRR, no m/r/g Lungs: Diminished breath sounds B, no wheezing Gastrointestinal: soft, nontender, nondistended, ostomy Genitourinary: Has a suprapubic catheter Extremities: +1 edema BLEs Results Imaging Imaging Studies: CT head: No acute intracranial hemorrhage noted CT chest: Bilateral posterior lower lobe atelectasis and small consolidations, likely pneumonias. Recommend follow-up. CT abdomen/pelvis: Few loops of nondilated, gas and fluid-filled small bowel, which is a nonspecific finding, but can be seen with enteritis. Labs 11/17/23 06:35 11/17/23 06:35 Labs: Laboratory Results - last 24 hr 11/11/23 11/11/23 20:18 20:42 WBC 7.49 RBC 3.30 L Hgb 9.7 L Hct 29.6 L MCV 90 MCH 29.4 MCHC 32.8 RDW 14.6 H Plt Count 355 MPV 9.7 Immature Gran % 0.5 Neutrophils % 68.3 Lymphocytes % 21.1 Monocytes % 6.8 Eosinophils % 2.8 Basophils % 0.5 Nucleated RBC % 0.0 Absolute Neutrophils 5.11 Absolute Lymphocytes 1.58 Absolute Monocytes 0.51 Absolute Eosinophils 0.21 Absolute Basophils 0.04 VBG pH 7.43 H VBG pCO2 38 L VBG pO2 103 VBG HCO3 25 VBG Total CO2 24 VBG O2 Saturation 98 VBG Base Excess 1 VBG Lactate 0.7 Sodium 144 Potassium 4.0 Chloride 110 H Carbon Dioxide 25.0 Anion Gap 9.0 BUN 19 H Creatinine 0.9 Est GFR (CKD-EPI 2020) 100.24 Glucose 111 H Calcium 9.2 Total Bilirubin 0.2 AST 13 L ALT 22 Alkaline Phosphatase 51 Total Protein 6.7 Albumin 2.5 L Procalcitonin < 0.1 TSH 1.78 Urine Color Yellow Urine Clarity Turbid Urine pH 6.0 Ur Specific [place] >= 1.030 H Urine Protein 100 H Urine Ketones Negative Urine Blood Moderate H Urine Nitrite Negative Urine Bilirubin Negative Urine Urobilinogen 0.2 Ur Leukocyte Esterase Moderate H Urine RBC Not Applicable Urine WBC >50 H Ur Epithelial Cells Not Applicable Urine Crystals Not Applicable Urine Bacteria Not Applicable Urine Mucus Not Applicable Ur Culture Indicated? Yes Urine Glucose Negative Last Vital Signs Temp 36.9 C 11/11/23 20:57 Pulse 60 11/11/23 23:01 Resp 18 11/11/23 23:01 BP 191/82 H 11/11/23 23:01 Pulse Ox 95 11/11/23 20:57 Time Spent Time spent with Patient: 55-74 minutes Time was spent: preparing to see the patient(eg.review tests), obtaining and/or reviewing separately otained hiistory, ordering medications,tests, procedures, referring, communicating with other health rental boats caretaker, indepentently interpreting results, counseling the patient and care coordination
[2023-11-11 23:51] LABS: Influenza A PCR Negative (Negative); Influenza B PCR Negative (Negative); RSV PCR Negative (Negative)
[2023-11-11 23:54] LABS: COVID-19 PCR Positive (Negative); Source Nasopharynx
[2023-11-11] MEDS: PIPERACILLIN/TAZO 3.375 GM in Normal Saline 50 ML IVPB (23:55)
[2023-11-12] VITALS (18 sets, daily range): BP systolic 138–197; BP diastolic 74–103; PULSE 61–91; RESP 12–23; TEMP 36.4–37.6; O2SAT 93–97
[2023-11-12] MEDS: REMDESIVIR 200 MG in Normal Saline 250 ML 250 MG IVPB (02:29)
[2023-11-12] MEDS: LORazepam 1 MG TAB PO ×4 (02:39→20:24)
[2023-11-12] MEDS: Water,Injection,Sterile 10 ML VIAL (02:41)
[2023-11-12] MEDS: PIPERACILLIN/TAZO 3.375 GM in Normal Saline 50 ML IVPB ×3 (05:14→18:27)
[2023-11-12] MEDS: Albuterol 2.5 MG/3 ML INH SOLN VIAL UPD (06:10)
[2023-11-12] MEDS: Enoxaparin 40 MG/0.4 ML SYR SC (09:22)
[2023-11-12] MEDS: Cholecalciferol (Vitamin D3) 1,000 UNIT TAB 1000 UNITS PO (09:23)
[2023-11-12] MEDS: Ascorbic Acid 500 MG TAB PO ×4 (09:23→22:18)
[2023-11-12] MEDS: Magnesium Chloride 64 MG TABCR 128 MG PO ×2 (09:23→20:22)
[2023-11-12] MEDS: Lactobacillus Acidophilus CAP 1 CAP PO ×3 (09:24→20:23)
--- NOTE | 2023-11-12 09:25 | W.PALLCONSUL ---
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 CT head was negative. The patient did have a urinalysis c/w a UTI. For this, he was started on zosyn. CT chest does show likely bilateral atelectasis and likely pneumonia. He also tested positive for COVID-19. He is not requiring oxygen. A hospitalist admission was requested. An exchange of a suprapubic catheter was recommended. INterim Hx: Favio is feeling better than he did last night. He was quite upset because he did not feel that he got good care. He understands that it might take longer to respond to his call marshall since he has COVID, but he was disappointed in how long it took. He also states that he was not turned on a regular schedule like he needs to be because of his quadriplegia He does feel like he is breathing better. Regarding his sleep?it has been so difficult because he did not get the Seroquel for a number of days after I prescribed it (I did call up [place] and remind them) and then he was in [facility] and now he is at [facility]. He really has not had a trial on it. He continues to have pain that shoots down his legs. It happens 3 or 4 times a day. It feels like electricity. It lasts for seconds. His left upper arm is feeling better. He is very happy in his present half-way. He feels that the food is good, the caregivers are excellent, and in general he is happy with the move. Assessment and Plan Assessment and plan (1) Ureteral stone: Status: Acute (2) COVID-19: Status: Acute (3) Acute confusion: Status: Acute (4) Anxiety disorder: Status: Acute (5) Insomnia: Status: Acute Assessment and plan: Favio's confusion seems to have cleared. He is at baseline by my exam. We talked for some time about how to handle situations that he feels are not appropriate. We talked about the space between when people say or do something and what his reaction is. He has the choice as to how he reacts. He seemed to understand what I was saying. I talked about how reacting in different ways will result in people responding in different ways. He does better on scheduled lorazepam. I think that would be an excellent idea to schedule it rather than as needed where it is not as predictable as to when he gets it He does need to be moved every 2 hours. He is a quadriplegic with known sacral wounds. I did speak with both Dr. Molina and Dr. Jara about his care. Qualifiers: Insomnia type: psychophysiologic Qualified Code(s): F51.04 - Psychophysiologic insomnia Review of Systems Narrative: He is frustrated and somewhat angry. His pain has not increased since hospitalization. He does feel overall better. He would like appropriate care i.e. turning on a regular basis etc. PFSH All Active Problems (Updated 11/13/23 @ 07:08 by Ady Molina MD) Ureteral stone (Acute) High blood pressure determined by examination (Acute) Acute on chronic anemia (Acute) Discharge planning issues (Acute) DVT prophylaxis (Acute) COVID-19 (Acute) Toxic metabolic encephalopathy (Acute) Atelectasis (Acute) Bilateral pneumonia (Acute) Acute confusion (Acute) Urinary tract infection (Acute) Abrasion of foot, right (Acute) Urinary tract infection (Acute) Anxiety disorder (Acute) History of UTI (Acute) Palliative care patient (Acute) Neck pain (Acute) Decubitus skin ulcer (Acute) Insomnia (Acute) Constipation due to neurogenic bowel (Acute) Chronic recurrent multifocal osteomyelitis (Chronic) Acute osteomyelitis of sacrum (Chronic) Major depressive disorder (Chronic) Neurogenic bladder (Chronic) Quadriplegia (Chronic) Medical History Muscle spasm Bladder stones Bronchospasm Insomnia Weight gain DIAMOND (acute kidney injury) Low magnesium level Open wound of abdominal wall Encounter for wound care Visit for wound check Right arm pain Malnutrition following gastrointestinal surgery Large bowel obstruction Iron deficiency anemia Hypokalemia Aspiration into airway Ileus Neurogenic bowel Physician orders for life-sustaining treatment (POLST) form indicates patient wish for [id number] status DNR (do not resuscitate) Decubitus ulcer of buttock, stage 4 H/O deep venous thrombosis DVT (deep venous thrombosis) DVT prophylaxis Constipation Fall down embankment Hypotension Acute embolism and thrombosis of deep vein of right lower extremity Fusion of spine Dislocation of C6/C7 cervical vertebrae C. difficile colitis Surgical History History of infusaport central venous catheter insertion Suprapubic catheter S/P colostomy Social History Smoking/Tobacco Use Status: Never Smoking risk assessment performed?: Yes Alcohol Intake: current Alcohol Intake frequency: holidays/special occasions only Substance use type: does not use Housing: house Do you feel safe at home: Yes Do you feel safe in your relationship?: Yes Exam Narrative Exam Narrative: Favio is lying in bed. He is playing on his phone and iPad. His heart is regular. His lungs are clear with good air movement throughout. He does have COVID-19 but I do not hear any lung changes. He does have a suprapubic Beck in place. One of the biggest problems is his mood. He has come to the conclusion that this is his life in and out of hospitals with urinary difficulties. Results Last Vital Signs Temp 98.1 F 11/12/23 09:19 Pulse 87 11/12/23 09:19 Resp 16 11/12/23 09:19 BP 169/96 H 11/12/23 01:29 Pulse Ox 93 11/12/23 09:19 Labs 11/13/23 06:55 11/13/23 06:55 Labs: Laboratory Results - last 24 hr 11/11/23 11/11/23 11/11/23 20:18 20:42 23:09 WBC 7.49 RBC 3.30 L Hgb 9.7 L Hct 29.6 L MCV 90 MCH 29.4 MCHC 32.8 RDW 14.6 H Plt Count 355 MPV 9.7 Immature Gran % 0.5 Neutrophils % 68.3 Lymphocytes % 21.1 Monocytes % 6.8 Eosinophils % 2.8 Basophils % 0.5 Nucleated RBC % 0.0 Absolute Neutrophils 5.11 Absolute Lymphocytes 1.58 Absolute Monocytes 0.51 Absolute Eosinophils 0.21 Absolute Basophils 0.04 VBG pH 7.43 H VBG pCO2 38 L VBG pO2 103 VBG HCO3 25 VBG Total CO2 24 VBG O2 Saturation 98 VBG Base Excess 1 VBG Lactate 0.7 Sodium 144 Potassium 4.0 Chloride 110 H Carbon Dioxide 25.0 Anion Gap 9.0 BUN 19 H Creatinine 0.9 Est GFR (CKD-EPI 2020) 100.24 Glucose 111 H Calcium 9.2 Total Bilirubin 0.2 AST 13 L ALT 22 Alkaline Phosphatase 51 Total Protein 6.7 Albumin 2.5 L Procalcitonin < 0.1 TSH 1.78 Urine Color Yellow Urine Clarity Turbid Urine pH 6.0 Ur Specific [place] >= 1.030 H Urine Protein 100 H Urine Ketones Negative Urine Blood Moderate H Urine Nitrite Negative Urine Bilirubin Negative Urine Urobilinogen 0.2 Ur Leukocyte Esterase Moderate H Urine RBC Not Applicable Urine WBC >50 H Ur Epithelial Cells Not Applicable Urine Crystals Not Applicable Urine Bacteria Not Applicable Urine Mucus Not Applicable Ur Culture Indicated? Yes Urine Glucose Negative COVID-19 Source Nasopharynx SARS-CoV-2 (PCR) Positive A Influenza Type A (PCR) Negative Influenza Type B (PCR) Negative RSV (PCR) Negative Imaging Additional studies: INDINGS: CHEST: There is abundant respiratory motion artifact on this study. Distal tip of Port-A-Cath is in the SVC. LUNGS: There is relatively symmetrical infiltrate in both lower lobes involving the superior segments of both lower lobes and extending down into the posterior basal segments. No significant pleural effusions.. MEDIASTINUM: No obvious hilar nor mediastinal adenopathy. Visualized thyroid unremarkable. CARDIAC: Heart size is normal. There is no pericardial effusion.Caliber of the thoracic aorta is within normal limits. OSSEOUS: Fusion hardware noted in the lower cervical upper thoracic spine. No obvious acute fractures. No significant osseous lesions.. ABDOMEN: There is no ascites. LIVER: There are no obvious focal hepatic lesions evident of this noninfused study. GALLBLADDER/BILIARY: No obvious gallbladder pathology. CBD is not dilated. PANCREAS: No evidence of obvious pancreatic mass nor dilatation of the pancreatic duct. SPLEEN: Spleen is not enlarged. No obvious intrasplenic lesions. ADRENALS: There are no significant adrenal masses. KIDNEYS: Left kidney unremarkable. There is a double pigtail stent on the right side extending from the renal pelvis down into the collapsed urinary bladder. No obvious calculi seen along the course of the stent but this is difficult to assess accurately given the motion artifact here. No obvious hydronephrosis.. No renal masses. ABDOMINAL AORTA: Abdominal aorta is not enlarged. LYMPH NODES: There is no retroperitoneal nor para-aortic adenopathy. ABDOMINAL WALL/GI: Left-sided ostomy again noted. No evidence of bowel obstruction. No free air. No abscess. No ascites. PELVIS: LYMPH NODES: There is no intrapelvic nor inguinal adenopathy. GI: No evidence of appendicitis.No evidence of sigmoid diverticulitis. URINARY BLADDER: There is a suprapubic catheter in the urinary bladder again noted. Bladder is collapsed. REPRODUCTIVE: Prostate not enlarged. Seminal vesicles unremarkable. OSSEOUS: No significant osseous lesions. No fractures. IMPRESSION: 1. Bilateral lower lobe infiltrates consistent with pneumonia. These extend from the superior segments of both lower lobes down to the posterior basal segments of both lower lobes. There are no associated pleural effusions. No intrathoracic adenopathy. 2. Double-pigtail right ureteral stent in place. No hydronephrosis. There is also suprapubic catheter again noted in the urinary bladder. The bladder is not distended. 3. Left-sided ostomy again noted. No evidence of bowel obstruction, free air, nor abscess.
[2023-11-12] MEDS: Senna TAB 17.2 TAB PO (09:26)
[2023-11-12] MEDS: Divalproex Sodium 500 MG TAB.ER.24H 1000 MG PO (09:26)
[2023-11-12] MEDS: Pregabalin 25 MG CAP PO ×3 (09:27→20:23)
[2023-11-12] MEDS: Multivitamin w/Minerals TAB 1 TAB PO (09:27)
[2023-11-12] MEDS: Docusate Sodium 100 MG CAP PO ×3 (09:27→20:24)
[2023-11-12] MEDS: Mirabegron 25 MG TABCR PO (09:27)
--- NOTE | 2023-11-12 10:11 | PDOC.CMIN ---
Care Management Initial Assmt Initial Assessment REASON FOR HOSPITALIZATION:: Toxic metabolic encephalopathy, UTI PREVIOUS FUNCTIONAL STATUS/SOCIAL/FAMILY SUPPORTS:: Favio lives in [place] with his caregiver Cary. A lady by the name of Jolynn also resides in the home and Cary provides her care as well. Favio is a quadriplegic and has disability benefits. He has 2 adult children who occasionally visit him. His mom is also a source of support for him. CURRENT FUNCTIONAL STATUS:: COVID-19 precautions reportedly confused at this time attributed to UTI per MD. ADVANCE DIRECTIVES:: COLST on file; DNR/DNI Has patient been provided with info about the portal/API?: Yes Did the patient sign up for the portal?: Yes CODE STATUS:: DNR/DNI INSURANCE COVERAGE / FINANCIAL ISSUES:: Medicare and Medicaid CURRENT HOME/COMMUNITY SERVICES/EQUIPMENT:: [facility]iative Care, motorized wheelchair, christa lift, and hospital bed. PRIMARY CARE PHYSICIAN:: Genevieve Baez MD POTENTIAL DISCHARGE NEEDS:: Follow up with PCP, resume community based supports. PATIENT/FAMILY EDUCATION NEEDS:: Review of discharge instructions including medications, limitations and follow up plan of care; discuss Ask Me Three. ANTICIPATED BARRIERS TO DISCHARGE:: None identified at this time. TRANSPORTATION:: RCT w/c van vs EMS. PLAN:: Favio will likely be discharged home with a resumption of services when medically cleared by provider. He will follow up with his PCP, community providers and plan of care as instructed. He will either be transported home via EMS vs. w/c van when ready. CM will continue to follow. PFSH All Active Problems (Updated 11/12/23 @ 01:22 by Lamar Murillo MD) Acute on chronic anemia (Acute) Discharge planning issues (Acute) DVT prophylaxis (Acute) COVID-19 (Acute) Toxic metabolic encephalopathy (Acute) Atelectasis (Acute) Bilateral pneumonia (Acute) Acute confusion (Acute) Urinary tract infection (Acute) Abrasion of foot, right (Acute) Urinary tract infection (Acute) Anxiety disorder (Acute) History of UTI (Acute) Palliative care patient (Acute) Neck pain (Acute) Decubitus skin ulcer (Acute) Insomnia (Acute) Constipation due to neurogenic bowel (Acute) Chronic recurrent multifocal osteomyelitis (Chronic) Acute osteomyelitis of sacrum (Chronic) Major depressive disorder (Chronic) Neurogenic bladder (Chronic) Quadriplegia (Chronic) Medical History Muscle spasm Bladder stones Bronchospasm Insomnia Weight gain DIAMOND (acute kidney injury) Low magnesium level Open wound of abdominal wall Encounter for wound care Visit for wound check Right arm pain Malnutrition following gastrointestinal surgery Large bowel obstruction Iron deficiency anemia Hypokalemia Aspiration into airway Ileus Neurogenic bowel Physician orders for life-sustaining treatment (POLST) form indicates patient wish for [id number] status DNR (do not resuscitate) Decubitus ulcer of buttock, stage 4 H/O deep venous thrombosis DVT (deep venous thrombosis) DVT prophylaxis Constipation Fall down embankment Hypotension Acute embolism and thrombosis of deep vein of right lower extremity Fusion of spine Dislocation of C6/C7 cervical vertebrae C. difficile colitis Surgical History History of infusaport central venous catheter insertion Suprapubic catheter S/P colostomy Social History Smoking/Tobacco Use Status: Never Smoking risk assessment performed?: Yes Alcohol Intake: current Alcohol Intake frequency: holidays/special occasions only Substance use type: does not use Housing: house Do you feel safe at home: Yes Do you feel safe in your relationship?: Yes SDOH(Care Management) Screening Will the Patient Participate in the Screening?: Unable to obtain
--- NOTE | 2023-11-12 10:23 | W.PM.PROGNOT ---
Date of Service Date of service: 11/12/23 Time of Service: Assessment and Plan Assessment and plan (1) Urinary tract infection: Status: Acute Assessment and plan: Present on admission, associated with a suprapubic catheter VS R ureteral stent in place with underlying nephrolithiasis. ER was asked to exchange the suprapubic catheter - we will follow up this up and awaiting urology consult. Continue zosyn initiated in the ED. Obtain culture data from [facility] via SNF Blood cultures, pending C/s urology pending refusing bloodwork, will retry (2) COVID-19: Status: Acute Assessment and plan: Continue remdesivir. Encourage pulmonary toilet, IS , vibra pep Could be the cause of both pulmonary infiltrates and the encephalopathy. (3) Bilateral pneumonia: Status: Acute Assessment and plan: On admission In setting of atelectasis and COVID-19. MRSA nares is negative . Continue zosyn Encourage IS/acepella. 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 Monitor mental status as we are treating above processes. Refusing labs this AM, will retry today (6) Atelectasis: Status: Acute Assessment and plan: Encourage pulmonary toilet. IS and vibra-pep ordered (7) Acute on chronic anemia: Status: Acute Assessment and plan: Anemia studies including hematest ordered, refused by patient (8) Quadriplegia: Status: Chronic Assessment and plan: C/S PT, OT, palliative care. Turn Q 2 hours Mepilex to pressure points ( sacrum and trochanters, right elbow)) (9) Neurogenic bladder: Status: Chronic Assessment and plan: S/p suprapubic catheter., might need changing if not done in ED , also awaiting for urology consult As above (10) DVT prophylaxis: Status: Acute Assessment and plan: Continue lovenox SC (11) Discharge planning issues: Status: Acute Assessment and plan: DNR/DNI C/s PT, OT, palliative care consult plan not yet determine considering going back to SNF when stable Subjective Subjective Interval history since last seen: Patient reports not sleeping well and having night sweats, but is feeling better, eating and drinking well. Denies lightheadedness, dizziness, fever, chills, change in vision, shortness of breath and cough, chest pain, gastrointestinal symptoms. Exam Narrative Exam Narrative: Constitutional The patient is lying in bed comfortable and cooperative during the interview. The patient is without acute distress and has average body habitus HENMT: Head is atraumatic, normocephalic, no lymphadenopathy. Facial structures with normal appearance Eyes: Well aligned, intact ROM Neck: Normal ROM, no meningeal signs Neuro:alert and oriented to self, person, place,time and situation. quasi-quadraplegic, can only partially mobilize right UE, no sensation from xyphoid process down Chest:Chest is symmetrical and normal appearance Resp: Normal respiratory pattern, on RA, speaks in full sentences, unlabored breathing, diminshed breaths sounds to left > right lower lung kothari Cardio: regular rhythm, S1, S2, no murmur, capillary refill<3 sec., bilateral radial and dorsalis pedis pulses are positive, palpable GI: Abdomen is not distended, soft and non tender, bowel sounds are present,stoma+ ostomy bag in place : no bladder distension Back/spine/Pelvis: No back tenderness, normal alignment Integumentary: pressure ulcers to sacrum 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 Objective Last Vital Signs Temp 36.7 C 11/12/23 09:19 Pulse 87 11/12/23 09:19 Resp 16 11/12/23 09:19 BP 169/96 H 11/12/23 01:29 Pulse Ox 93 11/12/23 09:19 Laboratory Results - last 24 hr 11/11/23 11/11/23 11/11/23 20:18 20:42 23:09 WBC 7.49 RBC 3.30 L Hgb 9.7 L Hct 29.6 L MCV 90 MCH 29.4 MCHC 32.8 RDW 14.6 H Plt Count 355 MPV 9.7 Immature Gran % 0.5 Neutrophils % 68.3 Lymphocytes % 21.1 Monocytes % 6.8 Eosinophils % 2.8 Basophils % 0.5 Nucleated RBC % 0.0 Absolute Neutrophils 5.11 Absolute Lymphocytes 1.58 Absolute Monocytes 0.51 Absolute Eosinophils 0.21 Absolute Basophils 0.04 VBG pH 7.43 H VBG pCO2 38 L VBG pO2 103 VBG HCO3 25 VBG Total CO2 24 VBG O2 Saturation 98 VBG Base Excess 1 VBG Lactate 0.7 Sodium 144 Potassium 4.0 Chloride 110 H Carbon Dioxide 25.0 Anion Gap 9.0 BUN 19 H Creatinine 0.9 Est GFR (CKD-EPI 2020) 100.24 Glucose 111 H [place] 9.2 Total Bilirubin 0.2 AST 13 L ALT 22 Alkaline Phosphatase 51 Total Protein 6.7 Albumin 2.5 L Procalcitonin < 0.1 TSH 1.78 Urine Color Yellow Urine Clarity Turbid Urine pH 6.0 Ur Specific [place] >= 1.030 H Urine Protein 100 H Urine Ketones Negative Urine Blood Moderate H Urine Nitrite Negative Urine Bilirubin Negative Urine Urobilinogen 0.2 Ur Leukocyte Esterase Moderate H Urine RBC Not Applicable Urine WBC >50 H Ur Epithelial Cells Not Applicable Urine Crystals Not Applicable Urine Bacteria Not Applicable Urine Mucus Not Applicable Ur Culture Indicated? Yes Urine Glucose Negative COVID-19 Source Nasopharynx SARS-CoV-2 (PCR) Positive A Influenza Type A (PCR) Negative Influenza Type B (PCR) Negative RSV (PCR) Negative Time Spent with Patient Time Spent with Patient: >50 minutes Time was spent: preparing to see the patient(eg.review tests), ordering medications,tests, procedures, referring, communicating with other health transitional care manager, indepentently interpreting results, counseling the patient and care coordination
[2023-11-12] MEDS: Protein Nutritional Supplement 16 GM 1 OUNCE PACKET PO ×3 (10:29→20:22)
[2023-11-12] MEDS: Baclofen 10 MG TAB 60 MG PO ×3 (10:30→20:22)
[2023-11-12 14:26] LABS: MRSA PCR Negative (Negative)
--- NOTE | 2023-11-12 15:12 | PHA.REVIEW2 ---
Pharmacy Admission Review Admission Clinical Review Admission Pharmacy Review: (Updated 11/12/23 @ 01:22 by Lamar Murillo MD) Acute on chronic anemia (Acute) Discharge planning issues (Acute) DVT prophylaxis (Acute) COVID-19 (Acute) Toxic metabolic encephalopathy (Acute) Atelectasis (Acute) Bilateral pneumonia (Acute) Acute confusion (Acute) Urinary tract infection (Acute) No Known Allergies Allergy (Verified 11/11/23 20:29) Resuscitation Status DNR/DNI Height 6 ft 2 in Weight 83.915 kg Pharmacy Admission Review Renal Dosing Renal Dosing: BUN 19 mg/dL (7-18) H 11/11/23 20:18 Creatinine 0.9 mg/dL (0.70-1.30) 11/11/23 20:18 Medications needing adjustments: Reviewed (CrCl 108.78 mL/min) Anticoagulation Anticoagulation: Hgb 9.7 g/dL (13.5-17.5) L 11/11/23 20:18 Hct 29.6 % (40.0-50.0) L 11/11/23 20:18 Plt Count 355 10^3/uL (130-400) 11/11/23 20:18 Creatinine 0.9 mg/dL (0.70-1.30) 11/11/23 20:18 DVT Prophylaxis: Reviewed Medications: Enoxaparin (40mg q24h) Relevant Labs Relevant Labs: Sodium 144 mmol/L (136-145) 11/11/23 20:18 Potassium 4.0 mmol/L (3.5-5.1) 11/11/23 20:18 Chloride 110 mmol/L (98-107) H 11/11/23 20:18 Electrolytes, C-Reactive P, ESR: Reviewed (Labs pending) Cardiac Review Cardiac Review: Blood Pressure 180/102 1439 Blood Pressure 138/86 1140 Blood Pressure 169/96 0129 BP, HR, EF%: Reviewed (BP 180/102, HR 91) QTc Review QTc: Reviewed (Last EKG was 08/19/23 and QTc was 408) IV to PO Switch IV Medications: Reviewed Home Meds Home Med List reviewed: Intervened Relevent Home Meds Not ordered & why?: Updated home med list. Patient picked up some Tamsulosin on 11/09/23, but is not on active home med list. Reached out to provider, patient has urology consult today. Current Meds Current Medication Order Review: Reviewed Pharmacy Antibiotic Review Relevant Labs: Relevant Labs 11/11/23 20:18 Procalcitonin < 0.1 Pharmacy Antibiotic Activity: C/S review and Reviewed, no change Comments: Current regimen of Zosyn 3.375mg q6h and Remdesivir 100mg q24h (COVID positive). Temp of 37.6 at 1439, WBC pending. Blood and urine cultures pending.
--- NOTE | 2023-11-12 17:27 | W.UROLOGYCON ---
Date of service: 11/12/23 Time of Service: 17:27 Assessment and Plan Assessment and plan (1) Ureteral stone: Status: Acute Assessment and plan: He is not going to be a surgical candidate here at our facility (especially with his current COVID status). We will recommend that he have his surgical follow-up down in [place] but as we arranged with the urology department there, would be happy to do his postop care that does not require a trip to the operating room or anesthesia. History of Present Illness History of Present Illness Chief Complaint: ureteral stone Narrative: This is a 58-year-old gentleman who has a history of a neurogenic bladder related to his spinal injury. He was initially treated with [facility], but was eventually converted to a suprapubic tube by the providers down at [facility]. He is well-known to me as he has had issues with bladder stones and recurrent symptomatic bacteriuria. I have done previous cystoscopies and evacuations of bladder stones. He recently presented to our emergency department with sepsis and hydronephrosis. He was transferred down to [facility] where he underwent cystoscopy and placement of a ureteral stent. He was given appropriate antibiotics and his sepsis improved. During that hospitalization, he remained in the intensive care unit because of hypoxia. He was seen by the pulmonary service and required bronchoscopy. We had been contacted by the urology department they are at [facility] asking if we be able to do follow-up ureteroscopy and holmium laser lithotripsy of his ureteral stone. Given his issues with the hypoxia, he was not thought to be an anesthesia candidate here at our facility. We recommended that his follow-up ureteroscopy still be done down at [facility] and that we could do any of his follow-up that did not require a trip to the operating room. He is now hospitalized with COVID. Review of Systems Constitutional Constitutional: Denies fever(s) Respiratory Respiratory: Reports cough and Denies hemoptysis Gastrointestinal Gastrointestinal: Denies nausea and Denies vomiting PFSH All Active Problems (Updated 11/13/23 @ 07:08 by Ady Molina MD) Ureteral stone (Acute) High blood pressure determined by examination (Acute) Acute on chronic anemia (Acute) Discharge planning issues (Acute) DVT prophylaxis (Acute) COVID-19 (Acute) Toxic metabolic encephalopathy (Acute) Atelectasis (Acute) Bilateral pneumonia (Acute) Acute confusion (Acute) Urinary tract infection (Acute) Abrasion of foot, right (Acute) Urinary tract infection (Acute) Anxiety disorder (Acute) History of UTI (Acute) Palliative care patient (Acute) Neck pain (Acute) Decubitus skin ulcer (Acute) Insomnia (Acute) Constipation due to neurogenic bowel (Acute) Chronic recurrent multifocal osteomyelitis (Chronic) Acute osteomyelitis of sacrum (Chronic) Major depressive disorder (Chronic) Neurogenic bladder (Chronic) Quadriplegia (Chronic) Medical History Muscle spasm Bladder stones Bronchospasm Insomnia Weight gain DIAMOND (acute kidney injury) Low magnesium level Open wound of abdominal wall Encounter for wound care Visit for wound check Right arm pain Malnutrition following gastrointestinal surgery Large bowel obstruction Iron deficiency anemia Hypokalemia Aspiration into airway Ileus Neurogenic bowel Physician orders for life-sustaining treatment (POLST) form indicates patient wish for [id number] status DNR (do not resuscitate) Decubitus ulcer of buttock, stage 4 H/O deep venous thrombosis DVT (deep venous thrombosis) DVT prophylaxis Constipation Fall down embankment Hypotension Acute embolism and thrombosis of deep vein of right lower extremity Fusion of spine Dislocation of C6/C7 cervical vertebrae C. difficile colitis Surgical History History of infusaport central venous catheter insertion Suprapubic catheter S/P colostomy Social History Smoking/Tobacco Use Status: Never Smoking risk assessment performed?: Yes Alcohol Intake: current Alcohol Intake frequency: holidays/special occasions only Substance use type: does not use Housing: house Do you feel safe at home: Yes Do you feel safe in your relationship?: Yes Exam Narrative Exam Narrative: He does not appear septic or toxic His vital signs are documented elsewhere He is awake and alert Results Last Vital Signs Temp 37.6 C H 11/12/23 14:39 Pulse 91 H 11/12/23 14:39 Resp 16 11/12/23 14:39 BP 180/102 H 11/12/23 14:39 Pulse Ox 97 11/12/23 14:39 Labs 11/12/23 18:22 11/12/23 18:22 Labs: Laboratory Results - last 24 hr 11/11/23 11/11/23 11/11/23 20:18 20:42 23:09 WBC 7.49 RBC 3.30 L Hgb 9.7 L Hct 29.6 L MCV 90 MCH 29.4 MCHC 32.8 RDW 14.6 H Plt Count 355 MPV 9.7 Immature Gran % 0.5 Neutrophils % 68.3 Lymphocytes % 21.1 Monocytes % 6.8 Eosinophils % 2.8 Basophils % 0.5 Nucleated RBC % 0.0 Absolute Neutrophils 5.11 Absolute Lymphocytes 1.58 Absolute Monocytes 0.51 Absolute Eosinophils 0.21 Absolute Basophils 0.04 VBG pH 7.43 H VBG pCO2 38 L VBG pO2 103 VBG HCO3 25 VBG Total CO2 24 VBG O2 Saturation 98 VBG Base Excess 1 VBG Lactate 0.7 Sodium 144 Potassium 4.0 Chloride 110 H Carbon Dioxide 25.0 Anion Gap 9.0 BUN 19 H Creatinine 0.9 Est GFR (CKD-EPI 2020) 100.24 Glucose 111 H [place] 9.2 Total Bilirubin 0.2 AST 13 L ALT 22 Alkaline Phosphatase 51 Total Protein 6.7 Albumin 2.5 L Procalcitonin < 0.1 TSH 1.78 Urine Color Yellow Urine Clarity Turbid Urine pH 6.0 Ur Specific [place] >= 1.030 H Urine Protein 100 H Urine Ketones Negative Urine Blood Moderate H Urine Nitrite Negative Urine Bilirubin Negative Urine Urobilinogen 0.2 Ur Leukocyte Esterase Moderate H Urine RBC Not Applicable Urine WBC >50 H Ur Epithelial Cells Not Applicable Urine Crystals Not Applicable Urine Bacteria Not Applicable Urine Mucus Not Applicable Ur Culture Indicated? Yes Urine Glucose Negative COVID-19 Source Nasopharynx SARS-CoV-2 (PCR) Positive A Influenza Type A (PCR) Negative Influenza Type B (PCR) Negative RSV (PCR) Negative MRSA (TEM-PCR) 11/12/23 10:45 WBC RBC Hgb Hct MCV MCH MCHC RDW Plt Count MPV Immature Gran % Neutrophils % Lymphocytes % Monocytes % Eosinophils % Basophils % Nucleated RBC % Absolute Neutrophils Absolute Lymphocytes Absolute Monocytes Absolute Eosinophils Absolute Basophils VBG pH VBG pCO2 VBG pO2 VBG HCO3 VBG Total CO2 VBG O2 Saturation VBG Base Excess VBG Lactate Sodium Potassium Chloride Carbon Dioxide Anion Gap BUN Creatinine Est GFR (CKD-EPI 2020) Glucose [place] Total Bilirubin AST ALT Alkaline Phosphatase Total Protein Albumin Procalcitonin TSH Urine Color Urine Clarity Urine pH Ur Specific [place] Urine Protein Urine Ketones Urine Blood Urine Nitrite Urine Bilirubin Urine Urobilinogen Ur Leukocyte Esterase Urine RBC Urine WBC Ur Epithelial Cells Urine Crystals Urine Bacteria Urine Mucus Ur Culture Indicated? Urine Glucose COVID-19 Source SARS-CoV-2 (PCR) Influenza Type A (PCR) Influenza Type B (PCR) RSV (PCR) MRSA (TEM-PCR) Negative
[2023-11-12] MEDS: Normal Saline Flush 10 ML SYR IVP ×3 (18:28→22:18)
[2023-11-12 18:37] LABS: Abs Immature Grans 0.04 10^3/uL (0.0-0.06); Absolute Basophil Count 0.06 10^3/uL (0.0-0.2); Absolute Eosinophil Count 0.22 10^3/uL (0.0-0.7); Absolute Lymphocyte Count 1.22 10^3/uL (1.2-3.4); Basophils % 0.5; Eosinophils % 1.9; HCT 32.2 % (40.0-50.0); HGB 10.4 g/dL (13.5-17.5); Immature Grans % 0.3; Lymphocytes % 10.7; MCH 28.8 pg (27.0-33.0); MCHC 32.3 % (32.0-36.0); MCV 89 fL (80-95); MPV 10.1 fL (8.0-11.0); Monocytes % 4.5; Neutrophils % 82.1; Platelet Count 353 10^3/uL (130-400); RBC 3.61 10^6/uL (4.36-5.78); RDW 14.8 % (11.8-14.1); RDW-SD 47.2 fL; WBC 11.44 10^3/uL (4.4-10.8)
[2023-11-12 18:39] LABS: Absolute Monocyte Count 0.51 10^3/uL (0.1-0.8); Absolute Neutrophil Count 9.39 10^3/uL (1.2-6.7)
[2023-11-12 18:51] LABS: Anion Gap 10.3 mmol/L (3-11); BUN 23 mg/dL (7-18); CO2 22.7 mmol/L (21.0-32.0); Calcium 8.8 mg/dL (8.5-10.1); Chloride 109 mmol/L (98-107); Estimated GFR 88.33 (mL/min/1.73m2); Glucose 121 mg/dL (74-106); Magnesium 1.8 mg/dL (1.8-2.4); Potassium 3.9 mmol/L (3.5-5.1); Sodium 142 mmol/L (136-145)
[2023-11-12] MEDS: Tamsulosin 0.4 MG CAPCR PO (20:23)
[2023-11-12] MEDS: Nystatin POWDER 15 GM JAR TP (20:24)
[2023-11-12] MEDS: Senna TAB 2 TAB PO (22:18)
[2023-11-12] MEDS: Melatonin 3 MG TAB PO (22:18)
[2023-11-12] MEDS: QUEtiapine 25 MG TAB PO (22:18)
[2023-11-12] MEDS: REMDESIVIR 100 MG in Normal Saline 250 ML 250 MG IVPB (22:18)
[2023-11-13 00:12] VITALS: BP 122/75; PULSE 88; RESP 16; TEMP 36.1; O2SAT 97
[2023-11-13] MEDS: PIPERACILLIN/TAZO 3.375 GM in Normal Saline 50 ML IVPB ×2 (00:14→06:27)
[2023-11-13] MEDS: Normal Saline Flush 10 ML SYR IVP ×3 (00:14→23:07)
[2023-11-13 03:00] VITALS: PULSE 65; RESP 16; O2SAT 97
[2023-11-13 07:22] LABS: Abs Immature Grans 0.03 10^3/uL (0.0-0.06); Absolute Basophil Count 0.03 10^3/uL (0.0-0.2); Absolute Eosinophil Count 0.18 10^3/uL (0.0-0.7); Absolute Lymphocyte Count 1.03 10^3/uL (1.2-3.4); Absolute Monocyte Count 0.41 10^3/uL (0.1-0.8); Absolute Neutrophil Count 6.05 10^3/uL (1.2-6.7); Basophils % 0.4; Eosinophils % 2.3; HCT 29.2 % (40.0-50.0); HGB 9.3 g/dL (13.5-17.5); INR 1.1 (0.9-1.1); Immature Grans % 0.4; Lymphocytes % 13.3; MCH 28.9 pg (27.0-33.0); MCHC 31.8 % (32.0-36.0); MCV 91 fL (80-95); MPV 9.9 fL (8.0-11.0); Monocytes % 5.3; Neutrophils % 78.3; Platelet Count 283 10^3/uL (130-400); Prothrombin Time 11.2 sec (9.1-11.1); RBC 3.22 10^6/uL (4.36-5.78); RDW 15.1 % (11.8-14.1); RDW-SD 48.7 fL; WBC 7.73 10^3/uL (4.4-10.8)
[2023-11-13 07:42] LABS: Iron 32 ug/dL (65-175); Total Iron Binding Capacity 196 ug/dL (250-450); Transferrin Sat 16 % (20-55)
[2023-11-13 08:02] LABS: Anion Gap 9.6 mmol/L (3-11); BUN 18 mg/dL (7-18); CO2 23.4 mmol/L (21.0-32.0); CREATININE 0.7 mg/dL (0.70-1.30); Calcium 8.6 mg/dL (8.5-10.1); Chloride 110 mmol/L (98-107); Estimated GFR 108.14 (mL/min/1.73m2); Glucose 118 mg/dL (74-106); Magnesium 1.8 mg/dL (1.8-2.4); Potassium 3.3 mmol/L (3.5-5.1); Sodium 143 mmol/L (136-145)
[2023-11-13 08:05] LABS: Vitamin D 25 Total 37.1 ng/mL (30-100)
[2023-11-13 08:12] LABS: D-Dimer 1018 ng/mlFEU (<500)
[2023-11-13 08:32] LABS: Ferritin 231 ng/mL (26-388); Folate 19.8 ng/mL (8.6-20.0); Vitamin B12 1260 pg/mL (193-986)
[2023-11-13 08:35] VITALS: BP 117/70; PULSE 65; RESP 18; TEMP 35.4; O2SAT 99
--- NOTE | 2023-11-13 08:59 | OTIE_ITS ---
Occupational Therapy Notes Inpatient Occupational Therapy Evaluation Date: 11/13/23 Referring Doctor: Lamar Murillo MD OT Orders: Non Urgent Fall, Covid 19, DNR/DNI PATIENT PROFILE/ADMITTING DIAGNOSIS: Pt is a 58 year old male who was admitted to [facility] with the following dx of uretal stones, high BP, acute on chronic anemia, COVID 19, toxic metabolic encephalopathy, atelectasis, (B) penumonia, acute confusion. Past Medical History: All Active Problems (Updated 11/12/23 @ 01:22 by Lamar Murillo MD) Acute on chronic anemia (Acute) Discharge planning issues (Acute) DVT prophylaxis (Acute) COVID-19 (Acute) Toxic metabolic encephalopathy (Acute) Atelectasis (Acute) Bilateral pneumonia (Acute) Acute confusion (Acute) Urinary tract infection (Acute) Abrasion of foot, right (Acute) Urinary tract infection (Acute) Anxiety disorder (Acute) History of UTI (Acute) Palliative care patient (Acute) Neck pain (Acute) Decubitus skin ulcer (Acute) Insomnia (Acute) Constipation due to neurogenic bowel (Acute) Chronic recurrent multifocal osteomyelitis (Chronic) Acute osteomyelitis of sacrum (Chronic) Major depressive disorder (Chronic) Neurogenic bladder (Chronic) Quadriplegia (Chronic) Medical History Muscle spasm Bladder stones Bronchospasm Insomnia Weight gain DIAMOND (acute kidney injury) Low magnesium level Open wound of abdominal wall Encounter for wound care Visit for wound check Right arm pain Malnutrition following gastrointestinal surgery Large bowel obstruction Iron deficiency anemia Hypokalemia Aspiration into airway Ileus Neurogenic bowel Physician orders for life-sustaining treatment (POLST) form indicates patient wish for [id number] status DNR (do not resuscitate) Decubitus ulcer of buttock, stage 4 H/O deep venous thrombosis DVT (deep venous thrombosis) DVT prophylaxis Constipation Fall down embankment Hypotension Acute embolism and thrombosis of deep vein of right lower extremity Fusion of spine Dislocation of C6/C7 cervical vertebrae C. difficile colitis Surgical History History of infusaport central venous catheter insertion Suprapubic catheter S/P colostomy Social History/Home Situation: Pt is a 58 year old patient who lives with caregivers d/t a spinal cord injury. He states that they provide him with max (A) all ADL/IADL routines and that he requires (A) at his baseline level for everyting including dressing, bathing, oral hygiene and toileting. Equipment owned/DME: Needs met by caregivers home. SUBJECTIVE: Pt was lying in bed. He is depressed and answers minimally but is able to verbally respond. He states that he is just not doing well. He notes that he only utilizes his hand braces at sometimes and his digits are contracted today. OBJECTIVE: General Observation: cotnrasted (B) UE, pereyra in place, IV in(L) UE Mental Status: A&Ox3 Pain: pt does not report any pain just discomfort at this time. ROM: RUE No AROM for functional use L UE No AROM for functional use STRENGTH: RUE Unable to get accurate testing position LUE Unable to get accurate testing position FUNCTIONAL MOBILITY/ADLS: BATHING max (A) DRESSING Max (A) GROOMING max (A) TOILETING Pereyra in place EATING Pt notes that he is max (A) and d/t increased hand contractures he is no longer able to perform this (I) at this time. BALANCE: Static sitting Full support to core Normal Dynamic Sitting Full support to core normal SPECIAL TESTS: Daily Activity Limitations Standardized Measure [facility] AM PAC ?6 clicks? Daily Activity Inpatient Short Form: Raw score: 6 Standardized score: 17.07 CMS score: 100% INFORMED CONSENT/EDUCATION: Pt instructed in purpose of OT Consult and plan of care. ASSESSMENT: Patient is a 58-year-old male referred to occupational therapy services with diagnosis of uretal stones, high BP, acute on chronic anemia, COVID 19, toxic metabolic encephalopathy, atelectasis, (B) penumonia, acute confusion. Patient presents with clinical signs and symptoms consistent with dx, as demonstrated by the following impairment level findings/ functional limitations: Impairments in ADL/IADL and leisure activities, spinal cord injury (chronic) resulting in decreased use of his hands/UE. Contractures of pts digits decreasing his functional extension of digits. AMPAC score 6 Patient is assessed as a high 63336 complexity based on the following: History: see above Examination: see functional limitations as noted above Presentation: evolving Decision Making: AMPAC score 6 GOALS Goals x1 week 1. OT will work with pt for his (B) UE to decrease risk of contractures of his digits. PLAN OF CARE/TREATMENT PLAN: 1x/day, 3 days/ week x 1week Initiate Occupational Therapy Services for bathing, dressing, grooming, toileting, eating, transfer training. DISCHARGE RECOMMENDATIONS Home with continued care and services. TREATMENT TIME/MINUTES/CODES [id number], [id number], 20 minutes Michelle Pearce OTR/L [facility] [place], [place]
--- NOTE | 2023-11-13 09:14 | PDOC.CMPRO ---
Date of service: 11/13/23 Time of Service: 09:14 Care Management Progress Note Progress Note Text Progress Note Text: S/O: Favio is on covid precautions, therefore CM was not able to meet with him in person. CM attempted to call but was unsuccessful at reaching him. Per report, his catheter was changed today, and urology recommended a one time dose of antibiotics to treat his UTI. Per report, Favio has been mostly cooperative with staff, although intermittently demanding and frustrated. He will return to the [facility] home where he has 24 care once he is medically cleared. He recently moved to a home in [place], [place]. CM will continue to follow. A: Favio is a 58 year old male admitted to [facility] on 11/11/23 with toxic metabolic encephalopathy. P: Favio will likely be discharged home with a resumption of services when medically cleared by provider. He will follow up with his PCP, community providers and plan of care as instructed. He will either be transported home via EMS vs. w/c van when ready. CM will continue to follow.
--- NOTE | 2023-11-13 09:39 | W.PM.PROGNOT ---
Date of Service Date of service: 11/13/23 Time of Service: 09:39 Assessment and Plan Assessment and plan (1) Urinary tract infection: Status: Acute Assessment and plan: Present on admission, associated with a suprapubic catheter VS R ureteral stent in place with underlying nephrolithiasis. Urethral stent: F/u arranged with [facility] as an outpatient as per urology, and is not a candidate for anesthesia within this facility d/t prior complicated course. ER was asked to exchange the suprapubic catheter - we will follow up this up and awaiting urology consult. Zosyn initiated in the ED; as per urolgy will not treat asymptomatic bacteruria. Stopped Zosyn Blood cultures: no growth 48 hours Obtain culture data from [facility] via SNF; request pending Blood cultures: positive for yeast , will give Difflucan IV one dose as per urology Dr. Molina who will aslo change the suprapubic catheter today C/s urology completed, please see notes (2) COVID-19: Status: Acute Assessment and plan: Continue remdesivir, day 3/4 Continue to encourage pulmonary toilet, IS , vibra pep Could be the cause of both pulmonary infiltrates and the encephalopathy . (3) Bilateral pneumonia: Status: Acute Assessment and plan: On admission In setting of atelectasis and COVID-19. MRSA nares is negative . Stop zosyn:Procal was negative, normothermic w/o hypotension or tachypnea, no additional O2 requirement remains on RA Encourage IS/acepella. 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 (6) Atelectasis: Status: Acute Assessment and plan: continue pulmonary toilet. continue IS and vibra-pep (7) Acute on chronic anemia: Status: Acute Assessment and plan: Anemia studies including hematest ordered, refused by patient (8) Quadriplegia: Status: Chronic Assessment and plan: Wound consult ordered; continue Mepilex to pressure points ( sacrum and trochanters, right elbow) until seen Continue C/S PT, OT, palliative care. Turn Q 2 hours New bedw airflow mattress to be delivered (9) Neurogenic bladder: Status: Chronic Assessment and plan: suprapubic catheter, changed by urology home Mebytrec and Flomax ordered (10) DVT prophylaxis: Status: Acute Assessment and plan: Continue enoxaparin Sc (11) Discharge planning issues: Status: Acute Assessment and plan: Needs to stay in isolation for 10 days in patient, consideration to be given to the possibility that the SNF would take him back is he tested negative prior to 10 days continue PT, OT, palliative care consult [facility] arrangement made for urethral stent manipulation OPT as per conversation w Dr. Molina (12) Hypokalemia: Assessment and plan: Corrected BMP & mag in AM Subjective Subjective Interval history since last seen: Reports feeling tired and notes to being well, eating well drinking well. Denies pain, lightheadedness, change in vision, shortness of breath, chest pain, nausea vomiting. Exam Narrative Exam Narrative: Constitutional The patient is without acute distress and has average body habitus HENMT: Facial structures with normal appearance Eyes: Well aligned, intact ROM Neck: Normal ROM, no meningeal signs Neuro:alert and oriented to self, person, place,time and situation. quasi-quadraplegic, can only partially mobilize right > left UE, no sensation from xyphoid process down Chest:Chest is symmetrical and normal appearance Resp: Normal respiratory pattern, on RA, diminshed breaths sounds to left > right lower lung kothari Cardio: regular rhythm, S1, S2, billateral radial and dorsalis pedis pulses are positive GI: Abdomen is not distended, soft and non tender, bowel sounds are present, functional stoma+ ostomy bag in place : no bladder distension, suprapubic cath in place Back/spine/Pelvis: No back tenderness, normal alignment Integumentary: pressure ulcers to sacrum acquired 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 Objective Last Vital Signs Temp 35.4 C L 11/13/23 08:35 Pulse 65 11/13/23 08:35 Resp 18 11/13/23 08:35 BP 117/70 11/13/23 08:35 Pulse Ox 99 11/13/23 08:35 Laboratory Results - last 24 hr 11/12/23 11/12/23 11/13/23 10:45 18:22 06:55 WBC 11.44 H 7.73 RBC 3.61 L 3.22 L Hgb 10.4 L 9.3 L Hct 32.2 L 29.2 L MCV 89 91 MCH 28.8 28.9 MCHC 32.3 31.8 L RDW 14.8 H 15.1 H Plt Count 353 283 MPV 10.1 9.9 Immature Gran % 0.3 0.4 Neutrophils % 82.1 78.3 Lymphocytes % 10.7 13.3 Monocytes % 4.5 5.3 Eosinophils % 1.9 2.3 Basophils % 0.5 0.4 Nucleated RBC % 0.0 0.0 Absolute Neutrophils 9.39 H 6.05 Absolute Lymphocytes 1.22 1.03 L Absolute Monocytes 0.51 0.41 Absolute Eosinophils 0.22 0.18 Absolute Basophils 0.06 0.03 PT 11.2 H INR 1.1 D-Dimer 1018 H Sodium 142 143 Potassium 3.9 3.3 L Chloride 109 H 110 H Carbon Dioxide 22.7 23.4 Anion Gap 10.3 9.6 BUN 23 H 18 Creatinine 1.0 0.7 Est GFR (CKD-EPI 2020) 88.33 108.14 Glucose 121 H 118 H Calcium 8.8 8.6 Magnesium 1.8 1.8 Iron 32 L TIBC 196 L Transferrin % Sat 16 L Ferritin 231 C-Reactive Protein 1.60 H Vitamin B12 1260 H 25-OH Vitamin D Total 37.1 Folate 19.8 MRSA (TEM-PCR) Negative Time Spent with Patient Time Spent with Patient: >50 minutes Time was spent: preparing to see the patient(eg.review tests), ordering medications,tests, procedures, referring, communicating with other health acute care nurse, indepentently interpreting results, counseling the patient and care coordination
[2023-11-13] MEDS: Enoxaparin 40 MG/0.4 ML SYR SC (10:01)
[2023-11-13] MEDS: Protein Nutritional Supplement 16 GM 1 OUNCE PACKET PO ×3 (10:08→21:10)
[2023-11-13] MEDS: Baclofen 10 MG TAB 60 MG PO ×3 (10:09→21:11)
[2023-11-13] MEDS: Acetaminophen 325 MG TAB PO ×2 (10:12→17:59)
[2023-11-13] MEDS: LORazepam 1 MG TAB PO ×4 (10:13→21:13)
[2023-11-13] MEDS: Pregabalin 25 MG CAP PO ×3 (10:13→21:12)
[2023-11-13] MEDS: Multivitamin w/Minerals TAB 1 TAB PO (10:13)
[2023-11-13] MEDS: Tamsulosin 0.4 MG CAPCR PO (10:13)
[2023-11-13] MEDS: Senna TAB 2 TAB PO ×2 (10:13→21:12)
[2023-11-13] MEDS: Divalproex Sodium 500 MG TAB.ER.24H 1000 MG PO (10:13)
[2023-11-13] MEDS: Mirabegron 25 MG TABCR PO (10:14)
[2023-11-13] MEDS: Magnesium Chloride 64 MG TABCR 128 MG PO ×2 (10:14→21:11)
[2023-11-13] MEDS: Ascorbic Acid 500 MG TAB PO ×4 (10:14→21:11)
[2023-11-13] MEDS: Cholecalciferol (Vitamin D3) 1,000 UNIT TAB 1000 UNITS PO (10:14)
[2023-11-13] MEDS: Lactobacillus Acidophilus CAP 1 CAP PO ×3 (10:14→21:12)
[2023-11-13] MEDS: Docusate Sodium 100 MG CAP PO ×3 (10:14→21:13)
[2023-11-13 12:15] VITALS: BP 114/72; PULSE 67; RESP 17; TEMP 36.2; O2SAT 96
--- NOTE | 2023-11-13 12:26 | PGE_ITS ---
Date of Service Date of service: 11/13/23 Time of Service: 12:26 Assessment and Plan Assessment and plan (1) Neurogenic bladder: Status: Chronic Assessment and plan: His catheter has been successfully changed. I would recommend a single dose of Diflucan 200 mg p.o. The medication along with a catheter change should be enough to treat the yeast in his urine. I do not see any need for antibiotics for any urinary issues. Subjective Subjective Interval history since last seen: The patient has a chronic suprapubic tube. He typically has a 20 Uzbek catheter, but his most recent catheter placement utilized an 18 Uzbek catheter. We believe the new catheter may have been placed in the emergency department, but we cannot find definite documentation for confirmation purposes. His urine culture from admission is growing yeast rather than bacteria. Objective Last Vital Signs Temp 35.4 C L 11/13/23 08:35 Pulse 65 11/13/23 08:35 Resp 18 11/13/23 08:35 BP 117/70 11/13/23 08:35 Pulse Ox 99 11/13/23 08:35 Laboratory Results - last 24 hr 11/12/23 11/12/23 11/13/23 10:45 18:22 06:55 WBC 11.44 H 7.73 RBC 3.61 L 3.22 L Hgb 10.4 L 9.3 L Hct 32.2 L 29.2 L MCV 89 91 MCH 28.8 28.9 MCHC 32.3 31.8 L RDW 14.8 H 15.1 H Plt Count 353 283 MPV 10.1 9.9 Immature Gran % 0.3 0.4 Neutrophils % 82.1 78.3 Lymphocytes % 10.7 13.3 Monocytes % 4.5 5.3 Eosinophils % 1.9 2.3 Basophils % 0.5 0.4 Nucleated RBC % 0.0 0.0 Absolute Neutrophils 9.39 H 6.05 Absolute Lymphocytes 1.22 1.03 L Absolute Monocytes 0.51 0.41 Absolute Eosinophils 0.22 0.18 Absolute Basophils 0.06 0.03 PT 11.2 H INR 1.1 D-Dimer 1018 H Sodium 142 143 Potassium 3.9 3.3 L Chloride 109 H 110 H Carbon Dioxide 22.7 23.4 Anion Gap 10.3 9.6 BUN 23 H 18 Creatinine 1.0 0.7 Est GFR (CKD-EPI 2020) 88.33 108.14 Glucose 121 H 118 H Calcium 8.8 8.6 Magnesium 1.8 1.8 Iron 32 L TIBC 196 L Transferrin % Sat 16 L Ferritin 231 C-Reactive Protein 1.60 H Vitamin B12 1260 H 25-OH Vitamin D Total 37.1 Folate 19.8 MRSA (TEM-PCR) Negative Change Bladder Catheter Text: He is seen in his hospital room. He is placed in the supine position. His indwelling catheter balloon is deflated and approximately 8 cc of sterile water was removed. The catheter was then removed. The stoma site was prepped with Betadine. A 20 Uzbek catheter was then passed through the suprapubic tract into the bladder. The catheter balloon was inflated with 10 cc of sterile water. The catheter was hooked to gravity drainage. The patient tolerated this procedure well. Time Spent with Patient Time Spent with Patient: <25 minutes Time was spent: referring, communicating with other health director career services and other
--- NOTE | 2023-11-13 15:22 | PT.INIE ---
PT Notes Visit Reasons: Toxic metabolic encephalopathy, UTI Inpatient Physical Therapy Initial Evaluation Date: 11/13/2022 Referring Doctor: Lamar Murillo MD PT Orders: PT CONSULT: Limited ability Precautions: Triplegia since 2019. Patient Profile/Admitting Diagnosis: Triplegic since October 2020 admitted for management of UTI, COVID-19, B PNA, and atelectasis. PMHX: All Active Problems (Updated 11/12/23 @ 01:22 by Lamar Murillo MD) Acute on chronic anemia (Acute) Discharge planning issues (Acute) DVT prophylaxis (Acute) COVID-19 (Acute) Toxic metabolic encephalopathy (Acute) Atelectasis (Acute) Bilateral pneumonia (Acute) Acute confusion (Acute) Urinary tract infection (Acute) Abrasion of foot, right (Acute) Urinary tract infection (Acute) Anxiety disorder (Acute) History of UTI (Acute) Palliative care patient (Acute) Neck pain (Acute) Decubitus skin ulcer (Acute) Insomnia (Acute) Constipation due to neurogenic bowel (Acute) Chronic recurrent multifocal osteomyelitis (Chronic) Acute osteomyelitis of sacrum (Chronic) Major depressive disorder (Chronic) Neurogenic bladder (Chronic) Quadriplegia (Chronic) Medical History Muscle spasm Bladder stones Bronchospasm Insomnia Weight gain DIAMOND (acute kidney injury) Low magnesium level Open wound of abdominal wall Encounter for wound care Visit for wound check Right arm pain Malnutrition following gastrointestinal surgery Large bowel obstruction Iron deficiency anemia Hypokalemia Aspiration into airway Ileus Neurogenic bowel Physician orders for life-sustaining treatment (POLST) form indicates patient wish for [id number] status DNR (do not resuscitate) Decubitus ulcer of buttock, stage 4 H/O deep venous thrombosis DVT (deep venous thrombosis) DVT prophylaxis Constipation Fall down embankment Hypotension Acute embolism and thrombosis of deep vein of right lower extremity Fusion of spine Dislocation of C6/C7 cervical vertebrae C. difficile colitis Surgical History History of infusaport central venous catheter insertion Suprapubic catheter S/P colostomy Social History/Home Situation: [facility] resident. Has been non-ambulatory since 10/26/2021 due to incomplete C6-C7 incomplete quadriplegia. Equipment Owned/DME: Awaiting motorized wheelchair delivery once a discharge destination is identified. Subjective: Does not feel he needs therapy. Just asked to be moved towards the R side as his pillows have slid down and could not support him enough. Objective: General Observation: Patient playing his video game when PT came in. Blue soft booties on B sides, B ankle in neutral position. Mental Status: Alert and oriented x 4 Pain: None reported ROM: Right Upper Extremity: Active shoulder flexion to 60 degrees on the right, passive flexion up to 100 degrees. External rotation up 60 degrees in gravity-eliminated plane. Elbow motion full. Forearm pronation and supination WFL. Left Upper Extremity: Active shoulder flexion to 45 degrees with pain at end of range, passively to about 65 degrees with discomfort at end of range. Shoulder external rotation allows only up to 20 degrees before onset of pain. Elbow motion full. Pronation and supination about 10 degrees from neutral both ways actively. Wrist flexion and extension about [address] actively. Able to open hand passively. Some tension towards flexion at DIP joints through tenodesis grasp. Patient is able to utilize tenodesis grasp to a limited degree on the left; unable to functionally grasp small items on the left. Right Lower Extremity: plegic Left Lower Extremity: plegic Strength: Right Upper Extremity: Shoulder flexion 3-/5. Shoulder extension 3+/5. Biceps 3+/5. Triceps 3-/5. Finger flexion 1/5. Finger extension 1/5. Left Upper Extremity: Shoulder flexion 3-/5. Shoulder extension 3+/5. Biceps 3+/5. Triceps 3-/5. Finger flexion 1/5. Finger extension 0/5. Right Lower Extremity: 0/5 all motions Left Lower Extremity: 0/5 all motions Sensation: Insensate below the level of T6 dermatome Bed Mobility/Transfers: Totally dependent with all bed mobility and transfers Gait: N/A. Quadriplegic. Balance: Static Sitting: Unable to test Special Tests: Mobility Limitations [facility]ized [facility] Basic Mobility Inpatient Short Form: Raw Score: 6 CMS Score: 100% deficit ASSESSMENT: C6-C7 triplegia since 2019. Requires total assistance using the mechanical lift for all transfers. Needs total assistance for all bed mobility tasks/bed positioning. Patient is at baseline level and is able to use his R UE for all feeding and recreational tasks with and adaptive equipment. Patient will benefit from proper patient positioning schedule every two hours while on admission. Patient continues to perform R shoulder exercises as previously instructed. Goals: N/A. PT evaluation only. Plan of Care/Treatment Plan: N/A. PT evaluation only. DISCHARGE RECOMMENDATIONS: Return to SNF vs. AFC depending on medical status. Continue with regular patient positioning by nursing staff to maintain skin integrity. TREATMENT CODE/TIME: 20304 x 20 minutes beginning at 15:22 PM. Thank you for the opportunity to participate in the care of this patient. Kathy Solorio, PT, DPT, CLT [facility] [place], [place]
[2023-11-13 16:02] VITALS: BP 100/61; PULSE 77; RESP 17; TEMP 35.8; O2SAT 96
[2023-11-13 20:52] VITALS: BP 102/61; PULSE 77; RESP 18; TEMP 35.8; O2SAT 96
[2023-11-13] MEDS: Zolpidem 10 MG TAB PO (21:11)
--- NOTE | 2023-11-13 21:27 | WOUNDCONS_ITS ---
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 Favio has a stage 4 healing pressure injury wound on the left Ischial tuberosity and a stage 4 healed pressure injury on the right Ischial tuberosity. Both wounds are covered with Mepilex dressings. This senior copywriter obtained a photo consent, reviewed H&P, recent labs, and orders. Wound Left Ischial Tuberosity: Wound Type: Pressure Ulcer Pressure Ulcer Stage: IV Wound General Appearance: Well Approximated and Reddened Wound Bed Greatest Portion: Red (Granulation) Wound Surrounding Tissue Appearance: [place] Wound Length: 1.5 cm Wound Width: 1.3 cm Wound Drainage Amount: Minimal Wound Drainage Odor: None/Absent Wound Drainage Description: Brown Right Ischial Tuberosity: Wound Type: Pressure Ulcer Pressure Ulcer Stage: IV (healed) Wound General Appearance: Clean/Dry and Reddened Photo Photo: Treatment/Dressing Change Cleanse With: Anasept Dressing Types: Mepilex w/Border Dressing Comment: Patient is uncomfortable with side lying when wound is cleaned and dressed. Patient denies pain with wound care. Nutrition Education Note: Patient understands the importance of increased protein needs for optimal wound healing. Recomendation Recomendation:: Remove dressings every 3 days and as needed Cleanse left wound with Anasept Let dwell for 2 minutes and pat dry. Apply Mepilex with border Physcian/Nurse Practioner Notified: Yes (Nasra Patterson) Treatment Time Time Total Time Spent with Patient: 30 minutes
[2023-11-13] MEDS: Melatonin 3 MG TAB PO (23:07)
[2023-11-13] MEDS: REMDESIVIR 100 MG in Normal Saline 250 ML 250 MG IVPB (23:08)
[2023-11-13] MEDS: QUEtiapine 25 MG TAB PO (23:08)
[2023-11-14] VITALS (7 sets, daily range): BP systolic 133–155; BP diastolic 79–93; PULSE 60–83; RESP 16–20; TEMP 35.4–36.6; O2SAT 96–97
[2023-11-14 07:46] LABS: Abs Immature Grans 0.03 10^3/uL (0.0-0.06); Absolute Basophil Count 0.03 10^3/uL (0.0-0.2); Absolute Eosinophil Count 0.21 10^3/uL (0.0-0.7); Absolute Lymphocyte Count 1.37 10^3/uL (1.2-3.4); Absolute Monocyte Count 0.59 10^3/uL (0.1-0.8); Absolute Neutrophil Count 5.37 10^3/uL (1.2-6.7); Basophils % 0.4; Eosinophils % 2.8; HCT 30.1 % (40.0-50.0); HGB 9.5 g/dL (13.5-17.5); Immature Grans % 0.4; MCHC 31.6 % (32.0-36.0); MCV 92 fL (80-95); MPV 10.2 fL (8.0-11.0); Monocytes % 7.8; Neutrophils % 70.6; Platelet Count 268 10^3/uL (130-400); RBC 3.28 10^6/uL (4.36-5.78); RDW 15.2 % (11.8-14.1); RDW-SD 50.3 fL
[2023-11-14 08:03] LABS: Anion Gap 8.8 mmol/L (3-11); BUN 19 mg/dL (7-18); CO2 24.2 mmol/L (21.0-32.0); CREATININE 0.6 mg/dL (0.70-1.30); Chloride 111 mmol/L (98-107); Estimated GFR 113.29 (mL/min/1.73m2); Glucose 109 mg/dL (74-106); Magnesium 1.8 mg/dL (1.8-2.4); Potassium 3.7 mmol/L (3.5-5.1); Sodium 144 mmol/L (136-145)
[2023-11-14] MEDS: Baclofen 10 MG TAB 60 MG PO ×3 (09:47→19:25)
[2023-11-14] MEDS: Divalproex Sodium 500 MG TAB.ER.24H 1000 MG PO (09:47)
[2023-11-14] MEDS: Cholecalciferol (Vitamin D3) 1,000 UNIT TAB 1000 UNITS PO (09:47)
[2023-11-14] MEDS: Docusate Sodium 100 MG CAP PO ×3 (09:47→19:27)
[2023-11-14] MEDS: Ascorbic Acid 500 MG TAB PO ×4 (09:47→19:25)
[2023-11-14] MEDS: Mirabegron 25 MG TABCR PO (09:48)
[2023-11-14] MEDS: LORazepam 1 MG TAB PO ×4 (09:48→19:25)
[2023-11-14] MEDS: Enoxaparin 40 MG/0.4 ML SYR SC (09:48)
[2023-11-14] MEDS: Magnesium Chloride 64 MG TABCR 128 MG PO ×2 (09:48→19:25)
[2023-11-14] MEDS: Lactobacillus Acidophilus CAP 1 CAP PO ×3 (09:48→19:26)
[2023-11-14] MEDS: Pregabalin 25 MG CAP PO ×3 (09:49→19:27)
[2023-11-14] MEDS: Tamsulosin 0.4 MG CAPCR PO (09:49)
[2023-11-14] MEDS: Multivitamin w/Minerals TAB 1 TAB PO (09:49)
[2023-11-14] MEDS: Senna TAB 2 TAB PO ×2 (09:49→19:27)
[2023-11-14] MEDS: Protein Nutritional Supplement 16 GM 1 OUNCE PACKET PO ×3 (09:49→19:28)
[2023-11-14] MEDS: Normal Saline Flush 10 ML SYR IVP ×2 (09:54→19:28)
[2023-11-14] MEDS: Acetaminophen 325 MG TAB PO ×2 (10:37→21:59)
--- NOTE | 2023-11-14 11:15 | PGE_ITS ---
Date of Service Date of service: 11/14/23 Time of Service: 11:15 Assessment and Plan Assessment and plan (1) Urinary tract infection: Status: Acute Assessment and plan: Present on admission, associated with a suprapubic catheter VS R ureteral stent in place with underlying nephrolithiasis. C/s urology completed, please see notes Urethral stent managment as per urology arrangement with [facility] as an outpatient; not a candidate for anesthesia within this facility d/t prior complicated course. Urology, Dr. Molina changed the suprapubic on 11/13 Zosyn initiated in the ED stopped as per urolgy recommendation to not treat this asymptomatic infection Blood cultures: no growth Oral fluconazole given a as per urology for yeast (2) COVID-19: Status: Acute Assessment and plan: Continue remdesivir, day 3/4 Continue to encourage pulmonary toilet, IS , vibra pep Could be the cause of both pulmonary infiltrates and the encephalopathy . (3) Bilateral pneumonia: Status: Acute Assessment and plan: On admission In setting of atelectasis and COVID-19. MRSA nares is negative . Stop zosyn:Procal was negative, normothermic w/o hypotension or tachypnea, no additional O2 requirement remains on RA Encourage IS/acepella. 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 (6) Atelectasis: Status: Acute Assessment and plan: continue pulmonary toilet. continue IS and vibra-pep (7) Acute on chronic anemia: Status: Acute Assessment and plan: Anemia studies including hematest ordered, refused by patient (8) Quadriplegia: Status: Chronic Assessment and plan: Wound consult completed Recomendations: Remove dressings every 3 days and as needed Cleanse left wound with Anasept Let dwell for 2 minutes and pat dry. Apply Mepilex with border Continue PT, OT, . Turn Q 2 hours New bed airflow mattress delivered today Wound care ordered (9) Neurogenic bladder: Status: Chronic Assessment and plan: Suprapubic catheter, changed by urology on 11/13 Continue home Mirbytric and Flomax until urethral stent adressed (10) DVT prophylaxis: Status: Acute Assessment and plan: Continue Lovenox SC (11) Discharge planning issues: Status: Acute Assessment and plan: Needs to stay in isolation for 10 days inpatient, consideration to be given to the possibility of discharge home one Remdesivir completed; CM is coordinating with home Will continue PT, OT, palliative care consult: Enjoys home environment, seroquel for insomnia [facility] arrangement e for urethral stent manipulation OPT via [facility] urology (12) Hypokalemia: Assessment and plan: Resolved BMP in AM (13) Encounter for medication management: Status: Acute Subjective Subjective Patient reports: no new complaints, feels better, tolerating liquids well, tolerating a regular diet, voiding w/o difficulty, bowel movement and afebrile; denies diarrhea, blood in stool, nausea, vomiting, shortness of breath or fever Exam Narrative Exam Narrative: Constitutional The patient is without acute distress and has average body habitus HENMT: Facial structures with normal appearance Eyes: Well aligned, intact ROM Neck: Normal ROM, no meningeal signs Neuro:alert and oriented to self, person, place,time and situation. quasi- quadraplegic, can only partially mobilize right > left UE, no sensation from xyphoid process down Chest:Chest is symmetrical and normal appearance Resp: Normal respiratory pattern, on RA, Clear breaths sounds on auscultation Cardio: regular rhythm, S1, S2, billateral radial and dorsalis pedis pulses are positive GI: Abdomen is not distended, soft and non tender, bowel sounds are present, functional stoma+ ostomy bag in place : no bladder distension, newly inserted on 11/[address] Back/spine/Pelvis: No back tenderness, normal alignment Integumentary: pressure ulcers to sacrum acquired 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 Objective Last Vital Signs Temp 35.4 C L 11/14/23 07:57 Pulse 69 11/14/23 07:57 Resp 20 11/14/23 07:57 BP 155/93 H 11/14/23 07:57 Pulse Ox 96 11/14/23 07:57 Laboratory Results - last 24 hr 11/13/23 11/14/23 Unknown 07:15 WBC 7.60 RBC 3.28 L Hgb 9.5 L Hct 30.1 L MCV 92 MCH 29.0 MCHC 31.6 L RDW 15.2 H Plt Count 268 MPV 10.2 Immature Gran % 0.4 Neutrophils % 70.6 Lymphocytes % 18.0 Monocytes % 7.8 Eosinophils % 2.8 Basophils % 0.4 Nucleated RBC % 0.0 Absolute Neutrophils 5.37 Absolute Lymphocytes 1.37 Absolute Monocytes 0.59 Absolute Eosinophils 0.21 Absolute Basophils 0.03 Sodium 144 Potassium 3.7 Chloride 111 H Carbon Dioxide 24.2 Anion Gap 8.8 BUN 19 H Creatinine 0.6 L Est GFR (CKD-EPI 2020) 113.29 Glucose 109 H Calcium 9.0 Magnesium 1.8 Add-On Test Request TNP Time Spent with Patient Time Spent with Patient: >50 minutes Time was spent: preparing to see the patient(eg.review tests), ordering medications,tests, procedures, referring, communicating with other health rn medicare, indepentently interpreting results, counseling the patient and care coordination
[2023-11-14] MEDS: Fluconazole 100 MG TAB 200 MG PO (13:05)
[2023-11-14] MEDS: Ibuprofen 400 MG TAB PO ×2 (13:05→19:27)
[2023-11-14] MEDS: Zolpidem 10 MG TAB PO (19:27)
[2023-11-14] MEDS: Nystatin POWDER 15 GM JAR TP (19:28)
[2023-11-14] MEDS: QUEtiapine 25 MG TAB PO (21:51)
[2023-11-14] MEDS: Melatonin 3 MG TAB PO (21:51)
[2023-11-14] MEDS: REMDESIVIR 100 MG in Normal Saline 250 ML 250 MG IVPB (21:51)
[2023-11-15 02:46] VITALS: BP 139/54; PULSE 65; RESP 16; TEMP 35.8; O2SAT 97
[2023-11-15] MEDS: LORazepam 1 MG TAB PO ×5 (03:18→22:41)
[2023-11-15] MEDS: Ibuprofen 400 MG TAB PO ×2 (03:18→20:20)
[2023-11-15 07:26] LABS: Abs Immature Grans 0.03 10^3/uL (0.0-0.06); Absolute Basophil Count 0.03 10^3/uL (0.0-0.2); Absolute Eosinophil Count 0.24 10^3/uL (0.0-0.7); Absolute Lymphocyte Count 2.02 10^3/uL (1.2-3.4); Absolute Monocyte Count 0.43 10^3/uL (0.1-0.8); Absolute Neutrophil Count 3.76 10^3/uL (1.2-6.7); Basophils % 0.5; Eosinophils % 3.7; HCT 29.3 % (40.0-50.0); HGB 9.3 g/dL (13.5-17.5); Immature Grans % 0.5; MCHC 31.7 % (32.0-36.0); MCV 91 fL (80-95); MPV 10.2 fL (8.0-11.0); Monocytes % 6.6; Neutrophils % 57.7; Platelet Count 223 10^3/uL (130-400); RBC 3.21 10^6/uL (4.36-5.78); RDW 15.4 % (11.8-14.1); RDW-SD 50.3 fL; WBC 6.51 10^3/uL (4.4-10.8)
[2023-11-15 07:36] LABS: Anion Gap 9.6 mmol/L (3-11); BUN 29 mg/dL (7-18); CO2 24.4 mmol/L (21.0-32.0); CREATININE 0.7 mg/dL (0.70-1.30); Calcium 9.1 mg/dL (8.5-10.1); Chloride 111 mmol/L (98-107); Estimated GFR 108.14 (mL/min/1.73m2); Glucose 102 mg/dL (74-106); Potassium 3.8 mmol/L (3.5-5.1); Sodium 145 mmol/L (136-145)
[2023-11-15 08:44] VITALS: BP 128/68; PULSE 64; RESP 17; TEMP 35.8; O2SAT 96
[2023-11-15] MEDS: Baclofen 10 MG TAB 60 MG PO ×3 (08:54→20:20)
[2023-11-15] MEDS: Senna TAB 2 TAB PO ×2 (08:54→20:20)
[2023-11-15] MEDS: Pregabalin 25 MG CAP PO ×3 (08:55→20:20)
[2023-11-15] MEDS: Cholecalciferol (Vitamin D3) 1,000 UNIT TAB 1000 UNITS PO (08:55)
[2023-11-15] MEDS: Tamsulosin 0.4 MG CAPCR PO (08:56)
[2023-11-15] MEDS: Multivitamin w/Minerals TAB 1 TAB PO (08:56)
[2023-11-15] MEDS: Divalproex Sodium 500 MG TAB.ER.24H 1000 MG PO (08:56)
[2023-11-15] MEDS: Magnesium Chloride 64 MG TABCR 128 MG PO ×2 (08:56→20:20)
[2023-11-15] MEDS: Enoxaparin 40 MG/0.4 ML SYR SC (08:57)
[2023-11-15] MEDS: Mirabegron 25 MG TABCR PO (08:57)
[2023-11-15] MEDS: Docusate Sodium 100 MG CAP PO ×3 (08:57→20:20)
[2023-11-15] MEDS: Ascorbic Acid 500 MG TAB PO ×4 (08:57→20:20)
[2023-11-15] MEDS: Lactobacillus Acidophilus CAP 1 CAP PO ×3 (08:57→20:21)
[2023-11-15] MEDS: Normal Saline Flush 10 ML SYR IVP ×2 (08:58→21:10)
[2023-11-15] MEDS: Nystatin POWDER 15 GM JAR TP (08:58)
[2023-11-15] MEDS: Protein Nutritional Supplement 16 GM 1 OUNCE PACKET PO ×3 (09:00→20:21)
--- NOTE | 2023-11-15 09:53 | DSE_ITS ---
Date of service: 11/17/23 Time of Service: 09:17 DS: Diagnosis Discharge Diagnosis (1) Urinary tract infection: (2) COVID-19: Status: Acute (3) Bilateral pneumonia: (4) High blood pressure determined by examination: (5) Toxic metabolic encephalopathy: Status: Resolved (6) Atelectasis: (7) Acute on chronic anemia: (8) Quadriplegia: Status: Chronic (9) Neurogenic bladder: (10) DVT prophylaxis: (11) Discharge planning issues: (12) Encounter for medication management: Status: Deleted Discharge Plan Disposition Patient Disposition: Home W/Home Health Services Condition: Stable Discharge Details Reason For Visit: Toxic metabolic encephalopathy, UTI Admit Date/Time: 11/11/23 23:49 Admit Provider: Lamar Murillo Attending Provider: Lamar Murillo Primary Care Provider: Genevieve Baez Hospital Course Hospital Course: This 58-year-old male patient with a past medical history of incomplete quadriplegia due to a fall and spinal cord injury resulting in neurogenic bladder with status post suprapubic catheter and neurogenic bowel with colostomy placement, history of right-sided nephrolithiasis with right ureteral stent with complicated placement associated with sepsis and hospitalization at [facility] until 11/10/2023 presented to ED at [facility] on 11/11/2023 with for evaluation of acute confusion and altered mental status. In the ED her urine analysis showed urinary tract infection for which she was started on Zosyn, the CT showed what is most likely bilateral atelectasis versus pneumonia, the COVID test was positive but oxygen supplementation requirement. The hospitalist was consulted and the patient was admitted to the medical surgical floor as an inpatient with airborne precautions. During the stay, treatment with remdesivir IV x 4 doses was completed.The patient obtain urology consult with Dr. Molina. Dr. Molina mentioned that IV medication in our facility the patient was not a candidate for surgical intervention and that follow-up surgical care at [facility] in [place] had been arranged through the urology department. The urine was found to have yeast growing, no bacteria, and treatment was completed with fluconazole. Dr. Molina also exchanged the suprapubic catheter. Procalcitonin was negative the patient remained afebrile and normotensive, and Zosyn was discontinued. Dr. Zhu saw the patient on 11/15/2023 and felt a change in his mental status, at the time the patient was afebrile normotensive. Urinalysis was completed showing large amount of leukoesterase. Procalcitonin was negative. After discussion with Dr. Molina, fluconazole 200 mg p.o. for [address] Zhu and I discussed the amount of sedation the patient was receiving at night, such as lorazepam scheduled and as needed, trial dose of Seroquel, melatonin, and Ambien. The decision was made to stop the Ambien as Dr. Zhu mentioned a joint decision with the the patient psychiatrist to try Seroquel before this admission. Melatonin was also discontinued. Lorazepam 3 times daily scheduled and as needed twice a day remains on the patient current medicine to prevent withdrawal; this has been an ongoing medicine for over a year and a half. Down titration of the benzodiazepine will be manage by r Dr. Zhu and primary care practitioner. The patient experienced hyponatremia with sodium at 147 most likely due to poor hydration this was corrected and today the patient has a sodium of 143. Hypomagnesia was corrected with magnesium IV. The patient came in with pressure ulcers on admission. Wound consult was obtained with the following recommendations for dressing and care. -Remove dressings every 3 days and as needed. Cleanse left wound with Anasept.Let dwell for 2 minutes and pat dry. Apply Mepilex with border. The patient will need to follow with his primary care practitioner upon discharge. The patient verbalized the need to follow-up with urology as well as with Dr. Zhu. Urology appointment obtained. Discussed with Dr. Hale. patient to resume home health services at discharge Home Meds and New Rx's Prescriptions: Continued diclofenac sodium [Voltaren Arthritis Pain] 1 % gel 4 g topical QID PRN (Reason: muscle pain) Qty: 100 5RF Rx Instructions: apply to painful muscles naloxone [Narcan] 4 mg/actuation spray,non-aerosol 4 mg intranasal Q2M PRN (Reason: opioid overdose) Qty: 2 4RF Rx Instructions: spray 1 dose into ONE nostril; alternate nostrils w each dose until help arrives baclofen 20 mg tablet 60 mg PO TID Qty: 270 6RF zolpidem 10 mg tablet 10 mg PO QHS PRN (Reason: sleep) Qty: 1 0RF Rx Instructions: rx by Dr Recinos nystatin 100,000 unit/gram powder 1 applic topical BID Qty: 60 4RF quetiapine [Seroquel] 25 mg tablet 25 mg PO QHS Qty: 90 4RF ascorbic acid (vitamin C) [Vitamin C] 500 mg tablet See Rx Instructions .ROUTE .COMPLEX Qty: 120 11RF Dose Instruction: TAKE 1 TABLET BY MOUTH FOUR TIMES A DAY Rx Instructions: TAKE 1 TABLET BY MOUTH FOUR TIMES A DAY divalproex 500 mg tablet extended release 24 hr 1,000 mg PO DAILY Qty: 60 12RF lorazepam [Ativan] 1 mg tablet 1 mg PO .COMPLEX MDD 5mg PRN (Reason: anxiety) Qty: 150 2RF Rx Instructions: 1 mg orally TID and 2 additional tabs PRN PRN; pregabalin 25 mg capsule 25 mg PO TID Qty: 90 5RF sildenafil [Viagra] 100 mg tablet 100 mg PO DAILY PRN (Reason: sexual activity) Rx Instructions: administer 30 minutes to 4 hours before activity. Call [employer] for credit card number. He knows its self pay methenamine hippurate [Hiprex] 1 gram tablet 1 g PO TID cholecalciferol (vitamin D3) [Vitamin D3] 25 mcg (1,000 unit) tablet 1,000 units PO DAILY Phlexy-Vits Powder In Packet 1 packet PO TID Qty: 90 0RF Myrbetriq 25 mg Tablet Extended Release 24 Hr 25 mg PO DAILY Qty: 30 0RF Patient Comments: pt. reports he probably took yesterday acetaminophen [Tylenol] 325 mg tablet 650 mg PO Q6H PRN PRN (Reason: fever or pain) Qty: 30 0RF docusate sodium [Colace] 100 mg capsule 100 mg PO TID Qty: 90 0RF Lactobacillus acidoph-L.bulgar [Floranex] 1 million cell tablet 1 tab PO TID Qty: 90 0RF Mag-Delay 64 mg tablet,delayed release (DR/EC) 128 mg PO BID Adults 50 Plus 0.4 mg-300 mcg- 250 mcg tablet 1 tab PO DAILY sennosides [senna] 8.6 mg tablet 17.2 mg PO BID tamsulosin 0.4 mg capsule 0.4 mg PO DAILY No Action baclofen 20 mg tablet 20 mg PO TID divalproex [Depakote ER] 500 mg tablet extended release 24 hr 500 mg PO DAILY docusate sodium [Col-Rite] 100 mg capsule 100 mg PO TID heparin (porcine) 5,000 unit/mL (1 mL) cartridge 5,000 unit subcut Q8H ipratropium-albuterol 0.5 mg-3 mg(2.5 mg base)/3 mL solution for nebulization 3 ml inhalation Q4H PRN melatonin 3 mg tablet 6 mg PO DAILY Myrbetriq 25 mg tablet extended release 24 hr 25 mg PO DAILY multivitamin Tablet 1 tab PO DAILY pantoprazole [Protonix] 40 mg tablet,delayed release (DR/EC) 40 mg PO DAILY pregabalin [Lyrica] 25 mg capsule 25 mg PO TID sennosides [Senokot] 8.6 mg tablet 34.4 mg PO DAILY sodium chloride [Hyper-Daniel] 7 % solution for nebulization 1 inh inhalation BID tamsulosin [Flomax] 0.4 mg capsule 0.4 mg PO DAILY trazodone 50 mg tablet 50 mg PO DAILY Discharge Instructions Instructions: How to Care for Your Suprapubic Catheter (DC), Encephalopathy (GEN) Stand Alone Forms: Nursing Discharge Form Referrals: Ady Molina MD [ [facility] STAFF PHYSICIAN] - 11/26/23 3:00 pm Genevieve Baez [Primary Care Provider] - 12/10/23 3:00 pm Activity:: Turned and reposition Q2 Equipment/Supplies:: No Equipment Needed Diet:: As Tolerated Discharge Orders Discharge Orders: Discharge Order (Routine); Ordered 11/17/23 Ordered By: Nasra Patterson Discharge Data Discharge Date/Time-TO BE ENTERED AT DEPARTURE: 11/17/23 14:25 DS: Summary Time Spent with Patient providing and/or coordinating discharge services: Greater than 30 minutes Status at Discharge Functional status at discharge: bed bound Overall status at discharge: patient is back to baseline Mental Status: mental status grossly normal Speech and Movement: speech and movement normal Mood: congruent mood Affect: normal affect Quality:SDOH Health Related Social Needs: No Data to Display Exam Narrative Exam Narrative: Constitutional The patient is without acute distress, verbalized dissatisfaction from being awake and from his nap for this exam. HENMT: Facial structures with normal appearance Eyes: Well aligned Neck: Normal ROM Neuro:alert and oriented to self, person, place,time and situation,incomplete quadriplegia as before can only partially mobilize right > left UE, no sensation from xyphoid to legs Resp: Normal respiratory pattern, on RA, Clear breaths sounds on auscultation Cardio: regular rhythm,no murmur, palpable radial and pedal pulses GI: Abdomen is not distended, soft and non tender, bowel sounds are present, functional stoma+ ostomy bag in place : no bladder distension, newly inserted on 11/[address] Integumentary: 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 Psych Mental Status: mental status grossly normal Speech and Movement: speech and movement normal Mood: congruent mood Affect: normal affect DS: Data Vitals/I&O Vitals and I&O: Vital Signs Temperature 35.8 C L 11/15/23 08:44 Temperature Source Tympanic 11/15/23 08:44 Pulse 64 11/15/23 08:44 Pulse Rhythm Regular 11/15/23 09:08 Pulse 70 11/12/23 01:10 Respiratory Rate 17 11/15/23 08:44 Respiratory Effort Normal, Non-Labored 11/15/23 09:08 Respiratory Depth Normal 11/15/23 09:08 Respiratory Pattern Normal 11/15/23 09:08 Blood Pressure 128/68 11/15/23 08:44 Blood Pressure Mean 118 11/12/23 01:02 Blood Pressure Position Supine 11/11/23 20:57 Pulse Oximetry 96 11/15/23 08:44 Oxygen Delivery Method Room Air 11/15/23 08:44 Oxygen Flow Rate 0 11/15/23 08:44 Pain Level 0 11/15/23 08:44 Comment pt refused BP assessment at this time. 11/13/23 03:00 Intake & Output 11/14/23 11/14/23 11/15/23 11:59 23:59 11:59 Intake Total 650 / 1130 480 / 1130 540 / 540 Output Total 200 / 500 300 / 500 450 / 450 Balance 450 / 630 180 / 630 90 / 90 Intake: IV 300 / 300 60 / 60 Oral 350 / 830 480 / 830 480 / 480 Output: Urine 300 / 300 450 / 450 Stool 200 / 200 Other: Urine Color Yellow Yellow Yellow Urine Appearance Cloudy Cloudy Clear Sediment Data Completed and Pending Labs on day of discharge: Labs from last 24 hours 11/15/23 07:05 WBC 6.51 RBC 3.21 L Hgb 9.3 L Hct 29.3 L MCV 91 MCH 29.0 MCHC 31.7 L RDW 15.4 H Plt Count 223 MPV 10.2 Immature Gran % 0.5 Neutrophils % 57.7 Lymphocytes % 31.0 Monocytes % 6.6 Eosinophils % 3.7 Basophils % 0.5 Nucleated RBC % 0.0 Absolute Neutrophils 3.76 Absolute Lymphocytes 2.02 Absolute Monocytes 0.43 Absolute Eosinophils 0.24 Absolute Basophils 0.03 Sodium 145 Potassium 3.8 Chloride 111 H Carbon Dioxide 24.4 Anion Gap 9.6 BUN 29 H Creatinine 0.7 Est GFR (CKD-EPI 2020) 108.14 Glucose 102 Calcium 9.1 Preliminary micro results at discharge 11/11/23 20:18 Blood Culture - Preliminary Blood NO GROWTH 72 HOURS 11/11/23 20:44 Blood Culture - Preliminary Blood NO GROWTH 72 HOURS PFSH All Active Problems (System 11/19/23 @ 12:49 by Naomi Devine) COVID-19 (Acute) Abrasion of foot, right (Acute) Urinary tract infection (Acute) History of UTI (Acute) Palliative care patient (Acute) Neck pain (Acute) Decubitus skin ulcer (Acute) Constipation due to neurogenic bowel (Acute) Chronic recurrent multifocal osteomyelitis (Chronic) Acute osteomyelitis of sacrum (Chronic) Major depressive disorder (Chronic) Quadriplegia (Chronic) Medical History Muscle spasm Bladder stones Bronchospasm Insomnia Weight gain DIAMOND (acute kidney injury) Low magnesium level Open wound of abdominal wall Encounter for wound care Visit for wound check Right arm pain Malnutrition following gastrointestinal surgery Large bowel obstruction Iron deficiency anemia Hypokalemia Aspiration into airway Ileus Neurogenic bowel Physician orders for life-sustaining treatment (POLST) form indicates patient wish for [id number] status DNR (do not resuscitate) Decubitus ulcer of buttock, stage 4 H/O deep venous thrombosis DVT (deep venous thrombosis) DVT prophylaxis Constipation Fall down embankment Hypotension Acute embolism and thrombosis of deep vein of right lower extremity Fusion of spine Dislocation of C6/C7 cervical vertebrae C. difficile colitis Surgical History History of infusaport central venous catheter insertion Suprapubic catheter S/P colostomy Social History (System 11/19/23 @ 12:49 by Naomi Devine) Smoking/Tobacco Use Status: Never Smoking risk assessment performed?: Yes Alcohol Intake: current Alcohol Intake frequency: holidays/special occasions only Substance use type: does not use Housing: house Do you feel safe at home: Yes Do you feel safe in your relationship?: Yes Time Spent with Patient Time Spent with Patient: >85 minutes Time was spent: preparing to see the patient(eg.review tests), ordering medications,tests, procedures, referring, communicating with other health property caretaker, indepentently interpreting results, counseling the patient and care coordination
--- NOTE | 2023-11-15 09:54 | PGE_ITS ---
Date of Service Date of service: 11/15/23 Time of Service: 13:52 Assessment and Plan Assessment and plan (1) Urinary tract infection: Status: Acute Assessment and plan: C/s urology completed by Dr Molina, please see notes was most likely associated with a suprapubic catheter VS R ureteral stent in place with underlying nephrolithiasis:suprapubic cath changed 11/13 and Oral fluconazole for yeast as per discussion with urology Urethral stent managment : arrangement with [facility] as an outpatient Zosyn initiated in the ED stopped as per urolgy recommendation to not treat t his asymptomatic infection Blood cultures: no growth at 72 hours (2) COVID-19: Status: Acute Assessment and plan: Remdesivir completed, no oxygen requirement, no respiratory symptoms Encourage pulmonary toilet, IS , vibra pep This viral infection could have been the cause of both the encephalopathy and the pulmonary infiltrates (3) Bilateral pneumonia: Status: Acute Assessment and plan: On admission, most likley viral in the setting of atelectasis and COVID-19. Procal was negative, normothermic w/o hypotension or tachypnea, no additional O2 requirement remains on RA As above (4) Toxic metabolic encephalopathy: Status: Acute Assessment and plan: Resolved and was most likely d/t COVID-19 with pulmonary infiltrate and funguria Will continue to monitor mental status (5) Atelectasis: Status: Acute Assessment and plan: Will continue pulmonary toilet, IS and vibra-pep (6) Acute on chronic anemia: Status: Acute Assessment and plan: Anemia studies: normal TIBC and ferriting, folate, no B12 deficiency could be d/t ACD f/u with PCP (7) Quadriplegia: Status: Chronic Assessment and plan: Wound consult completed and will continue recommendations with wound care as OPT Remove dressings every 3 days and as needed Cleanse left wound with Anasept Let dwell for 2 minutes and pat dry. Apply Mepilex with border Will continue PT, OT, . Turn Q 2 hours New bed airflow mattress: patient verbalized dissatisfaction with new bed (8) Neurogenic bladder: Status: Chronic Assessment and plan: New suprapubic catheter installed on 11/[address] Rasmussen Continue home Mirbytric and Flomax until urethral stent issues addressed by [facility] (9) DVT prophylaxis: Status: Acute Assessment and plan: Lovenox SC for DVT prophylaxis (10) Discharge planning issues: Status: Acute Assessment and plan: Needs to stay in isolation for 10 days inpatient, home environment standards are 7 days as per CM -probable discharge on Thursday.CM is coordinating with home caregivers Will continue PT, OT, palliative care consult: Enjoys home environment, seroquel for insomnia [facility] arrangement for urethral stent manipulation OPT as per discussion with [facility] urology nursing for wound care Thursday and Thursday upon discharge (11) Encounter for medication management: Status: Acute Subjective Subjective Interval history since last seen: Patient reports feeling better, tolerating liquid and solid oral intake well, denies pain, night sweats, fever, chills, nausea, vomiting. Reports sleeping poorly and agreeable to an increased dose of melatonin. Exam Narrative Exam Narrative: The patient is without acute distress and has average body habitus HENMT: Facial structures with normal appearance Eyes: Well aligned, intact ROM Neck: Normal ROM, no meningeal signs Neuro:alert and oriented to self, person, place,time and situation. 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 Objective Last Vital Signs Temp 35.8 C L 11/15/23 08:44 Pulse 64 11/15/23 08:44 Resp 17 11/15/23 08:44 BP 128/68 11/15/23 08:44 Pulse Ox 96 11/15/23 08:44 Laboratory Results - last 24 hr 11/15/23 07:05 WBC 6.51 RBC 3.21 L Hgb 9.3 L Hct 29.3 L MCV 91 MCH 29.0 MCHC 31.7 L RDW 15.4 H Plt Count 223 MPV 10.2 Immature Gran % 0.5 Neutrophils % 57.7 Lymphocytes % 31.0 Monocytes % 6.6 Eosinophils % 3.7 Basophils % 0.5 Nucleated RBC % 0.0 Absolute Neutrophils 3.76 Absolute Lymphocytes 2.02 Absolute Monocytes 0.43 Absolute Eosinophils 0.24 Absolute Basophils 0.03 Sodium 145 Potassium 3.8 Chloride 111 H Carbon Dioxide 24.4 Anion Gap 9.6 BUN 29 H Creatinine 0.7 Est GFR (CKD-EPI 2020) 108.14 Glucose 102 Calcium 9.1 Time Spent with Patient Time Spent with Patient: >50 minutes Time was spent: preparing to see the patient(eg.review tests), ordering medications,tests, procedures, indepentently interpreting results, counseling the patient and care coordination
[2023-11-15 13:45] VITALS: BP 156/87; PULSE 81; RESP 17; TEMP 36.2; O2SAT 96
[2023-11-15 15:56] VITALS: BP 151/85; PULSE 84; RESP 17; TEMP 36.6; O2SAT 96
[2023-11-15 20:05] VITALS: BP 138/86; PULSE 89; RESP 16; TEMP 36.8; O2SAT 98
[2023-11-15] MEDS: Zolpidem 10 MG TAB PO (20:20)
[2023-11-15] MEDS: QUEtiapine 25 MG TAB PO (21:39)
[2023-11-15] MEDS: Melatonin 3 MG TAB 6 MG PO (21:39)
[2023-11-15] MEDS: Acetaminophen 325 MG TAB PO (22:40)
[2023-11-15 22:49] VITALS: BP 145/89; PULSE 89; RESP 18; TEMP 36.5; O2SAT 97
--- NOTE | 2023-11-15 23:05 | NUR.NOTE ---
Nursing Note: pt has been repositioned 6 times since shift change, is consistently removing pillows and pushing himself back out of position. pt is also on bed that offloads weight, however he refuses the side to side tilt setting and only allows for us to put it on the setting that just redistributes weight every 5 minutes. wctm.
[2023-11-15] MEDS: REMDESIVIR 100 MG in Normal Saline 250 ML 250 MG IVPB (23:08)
--- NOTE | 2023-11-15 23:08 | NUR.NOTE ---
Nursing Note: pt is biting at fingers, making them bleed. education provided on not doing this for infection reasons. pt continues action despite education. refuses covering wounds. wctm.
[2023-11-16 02:39] VITALS: BP 139/83; PULSE 65; RESP 18; TEMP 36; O2SAT 94
[2023-11-16 07:37] VITALS: BP 142/90; PULSE 64; RESP 16; TEMP 36; O2SAT 97
--- NOTE | 2023-11-16 07:59 | W.PALPGNOTE ---
Date of service: 11/16/23 Time of Service: 07:59 Assessment and Plan Assessment and plan (1) Ureteral stone: Status: Acute (2) Acute on chronic anemia: Status: Acute (3) Toxic metabolic encephalopathy: Status: Acute (4) Bilateral pneumonia: Status: Acute (5) Acute confusion: Status: Acute Assessment and plan: Much more confused than when I saw him last. Pain - seems adequately controlled and at baseline Is he brewing an infection: wound, lungs, uti? Communicated with nursing and hospitalist. Subjective Subjective Interval history since last seen: Left arm hurting again. Legs feel achy. Bed better. Wanted to know if I knew how to move his med around on his video game - he forgot how to do it Nursing stated he seemsoff. Asking people for hugs Ringing marshall, but seems to want company not care. HArder to articulatewhat he wants/needs Exam Narrative Exam Narrative: Definitely confused. Asked me things I don't engage with him in : video game concerns. UNable to voice concerns. Heart regular, Lungs - from what I could hear - good air movement. Abdomen soft. Legs appeared baseline Objective Last Vital Signs Temp 96.8 F L 11/16/23 07:37 Pulse 64 11/16/23 07:37 Resp 16 11/16/23 07:37 BP 142/90 H 11/16/23 07:37 Pulse Ox 97 11/16/23 07:37
[2023-11-16] MEDS: Enoxaparin 40 MG/0.4 ML SYR SC (08:05)
[2023-11-16] MEDS: Docusate Sodium 100 MG CAP PO ×3 (08:06→20:24)
[2023-11-16] MEDS: Nystatin POWDER 15 GM JAR TP ×2 (08:06→20:28)
[2023-11-16] MEDS: Tamsulosin 0.4 MG CAPCR PO (08:06)
[2023-11-16] MEDS: Lactobacillus Acidophilus CAP 1 CAP PO ×3 (08:07→20:24)
[2023-11-16] MEDS: Mirabegron 25 MG TABCR PO (08:07)
[2023-11-16] MEDS: Magnesium Chloride 64 MG TABCR 128 MG PO ×2 (08:07→20:27)
[2023-11-16] MEDS: Baclofen 10 MG TAB 60 MG PO ×3 (08:07→20:23)
[2023-11-16] MEDS: Multivitamin w/Minerals TAB 1 TAB PO (08:07)
[2023-11-16] MEDS: Divalproex Sodium 500 MG TAB.ER.24H 1000 MG PO (08:08)
[2023-11-16] MEDS: Senna TAB 2 TAB PO ×2 (08:08→20:25)
[2023-11-16] MEDS: Cholecalciferol (Vitamin D3) 1,000 UNIT TAB 1000 UNITS PO (08:09)
[2023-11-16] MEDS: LORazepam 1 MG TAB PO ×2 (08:09→20:25)
[2023-11-16] MEDS: Ascorbic Acid 500 MG TAB PO ×4 (08:09→20:23)
[2023-11-16] MEDS: Normal Saline Flush 10 ML SYR IVP ×2 (08:10→20:28)
[2023-11-16] MEDS: Pregabalin 25 MG CAP PO ×3 (08:10→20:27)
[2023-11-16] MEDS: Protein Nutritional Supplement 16 GM 1 OUNCE PACKET PO ×3 (08:10→20:26)
--- NOTE | 2023-11-16 09:24 | W.PM.PROGNOT ---
Date of Service Date of service: 11/16/23 Time of Service: 09:24 Assessment and Plan Assessment and plan (1) Confusion: Status: Acute Assessment and plan: UA stat done positive for leuk and negative for nitrite; as per previous consultation with urology, we will wait for a procalcitonin level before treating, the patient is afebrile, with stable vital signs BMP Na was 145 yesterday, 147 today, D5W IV ordered, BMP in 6 hours and in AM Increased melatonin re: c/o insomnia, the patient was already on Seroquel (see initial palliative care note for this stay) will stop melatonin Holding lorazepam but resumed to TID after discussion with Dr. Zhu Holding Ambien, now discontinued. (2) Urinary tract infection: Assessment and plan: C/s urology completed by Dr Molina, please see notes was most likely associated with a suprapubic catheter VS R ureteral stent in place with underlying nephrolithiasis:suprapubic cath changed 11/13 and Oral fluconazole for yeast as per discussion with urology Urethral stent managment : [place] [facility] [place] Zosyn initiated in the ED stopped as per urolgy recommendation to not treat this asymptomatic infection. Today a procalcitonin which was negative was ordered in the setting of UA showing large quantity of leuk-esterase. After discussion w Dr. Molina, 2 additional days of oral Diflucan ordered. Blood cultures: no growth at 72 hours (3) COVID-19: Status: Acute Assessment and plan: Remdesivir completed, no oxygen requirement, no respiratory symptoms Encourage pulmonary toilet, IS , vibra pep This viral infection could have been the cause of both the encephalopathy and the pulmonary infiltrates (4) Bilateral pneumonia: Assessment and plan: On admission, most likley viral in the setting of atelectasis and COVID-19. Procal was negative, normothermic w/o hypotension or tachypnea, no additional O2 requirement remains on RA As above (5) Toxic metabolic encephalopathy: Status: Resolved Assessment and plan: Resolved and was most likely d/t COVID-19 with pulmonary infiltrate and funguria Will continue to monitor mental status (6) Atelectasis: Assessment and plan: Will continue pulmonary toilet, IS and vibra-pep (7) Acute on chronic anemia: Status: Acute Assessment and plan: Anemia studies: normal TIBC and ferriting, folate, no B12 deficiency could be d/t ACD f/u with PCP H&H stable (8) Quadriplegia: Status: Chronic Assessment and plan: Will continue the same management with the following Wound consult completed and will continue recommendations with wound care as OPT Remove dressings every 3 days and as needed Cleanse left wound with Anasept Let dwell for 2 minutes and pat dry. Apply Mepilex with border Will continue PT, OT, . Turn Q 2 hours as New bed airflow mattress (9) Neurogenic bladder: Assessment and plan: Continue Mirbytric and Flomax (10) DVT prophylaxis: Assessment and plan: Lovenox SC for DVT prophylaxis (11) Discharge planning issues: Assessment and plan: Needs to stay in isolation for 10 days inpatient, home environment standards are 7 days as per CM -probable discharge on Thursday. is coordinating with home caregivers Will continue PT, OT, palliative care consult: Enjoys home environment, seroquel for insomnia [facility] [place] stent manipulation OPT as per discussion with [facility] urology nursing for wound care Thursday and Thursday upon discharge Will f/u with Dr. Zhu Discussed with Dr. Hale (12) Encounter for medication management: Status: Deleted Subjective Subjective Interval history since last seen: Mr. Estrada was seen this afternoon, stating feeling better after eating and drinking. Inquires about discharge home tomorrow, knows that the drive from the hospital to [facility] will take about 45 minutes. the patient is playing games on his laptop. He denies chills, dizziness, nausea, pain or shortness of breath. Patient is agreeable to care plan as detailed below. Exam Narrative Exam Narrative: The patient is without acute distress and has average body habitus HENMT: Facial structures with normal appearance Eyes: Well aligned, intact ROM Neck: Normal ROM, no meningeal signs Neuro:alert and oriented to self, person, place,time ( november 2023, thursday but stated 11 instead of 15) and situation. 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 Objective Last Vital Signs Temp 36.0 C L 11/16/23 07:37 Pulse 64 11/16/23 07:37 Resp 16 11/16/23 07:37 BP 142/90 H 11/16/23 07:37 Pulse Ox 97 11/16/23 07:37 Time Spent with Patient Time Spent with Patient: >50 minutes Time was spent: preparing to see the patient(eg.review tests), obtaining and/or reviewing separately otained hiistory, ordering medications,tests, procedures, referring, communicating with other health healthcare administrative assistant, indepentently interpreting results, counseling the patient and care coordination
[2023-11-16 10:47] VITALS: BP 155/90; PULSE 73; RESP 16; TEMP 36.3; O2SAT 98
[2023-11-16 11:25] LABS: Bilirubin Negative (Negative); Blood Large (Negative); Clarity Turbid (Clear); Glucose Negative (Negative); Ketones Negative (Negative); Leukocyte Esterase Large (Negative); Nitrite Negative (Negative); Specific Gravity >= 1.030 (1.005-1.025); Urobilinogen 0.2 mg/dL (Up to 0.2)
[2023-11-16 11:37] LABS: C & S Indicated? Yes; RBC >50 HPF (0-2); WBC >50 HPF (0-5)
[2023-11-16 14:53] LABS: Anion Gap 9.9 mmol/L (3-11); BUN 28 mg/dL (7-18); CO2 25.1 mmol/L (21.0-32.0); CREATININE 0.9 mg/dL (0.70-1.30); Calcium 8.7 mg/dL (8.5-10.1); Chloride 112 mmol/L (98-107); Estimated GFR 100.24 (mL/min/1.73m2); Glucose 110 mg/dL (74-106); Magnesium 1.8 mg/dL (1.8-2.4); Potassium 3.9 mmol/L (3.5-5.1); Sodium 147 mmol/L (136-145)
[2023-11-16 15:34] LABS: Procalcitonin < 0.1 ng/mL
[2023-11-16] MEDS: Fluconazole 100 MG TAB 200 MG PO (15:41)
[2023-11-16] MEDS: DEXTROSE 5%-WATER 1,000 ML 100 ML IV (15:45)
[2023-11-16 15:46] VITALS: BP 114/86; PULSE 86; RESP 18; TEMP 36.7; O2SAT 97
--- NOTE | 2023-11-16 16:42 | CMPROGNOTE_ITS ---
Date of service: 11/16/23 Time of Service: 16:43 Care Management Progress Note Progress Note Text Progress Note Text: S/O: Favio remains on covid precautions, therefore CM did not meet with him in person; unable to reach him via phone. Per nursing, he has had increased confusion this admission, which has not resolved. The provider has made some medication changes, and has consulted with palliative care, who knows him well. Per report, he recently moved to a new [place] in [place], with an [facility] home care provider, Jovanny You ([phone]). CM will coordinate with his home provider when he is ready for discharge. CM will continue to follow. A: Favio is a 58 year old male admitted to [facility] on 11/11/23 with toxic metabolic encephalopathy. P: Favio will likely be discharged home with a resumption of services when medically cleared by provider. He will follow up with his PCP, community providers and plan of care as instructed. He will either be transported home via EMS vs. w/c van when ready. CM will continue to follow.
[2023-11-16 19:12] VITALS: BP 157/80; PULSE 86; RESP 18; TEMP 36.6; O2SAT 96
[2023-11-16] MEDS: QUEtiapine 25 MG TAB PO (21:22)
[2023-11-16 22:00] LABS: BUN 33 mg/dL (7-18); CREATININE 0.9 mg/dL (0.70-1.30); Calcium 8.6 mg/dL (8.5-10.1); Chloride 111 mmol/L (98-107); Estimated GFR 100.24 (mL/min/1.73m2); Glucose 161 mg/dL (74-106); Potassium 3.7 mmol/L (3.5-5.1); Sodium 145 mmol/L (136-145)
[2023-11-16 22:39] VITALS: BP 122/80; PULSE 82; RESP 18; TEMP 36.5; O2SAT 97
[2023-11-17] MEDS: DEXTROSE 5%-WATER 1,000 ML 100 ML IV (01:27)
[2023-11-17 06:54] LABS: Abs Immature Grans 0.02 10^3/uL (0.0-0.06); Absolute Basophil Count 0.04 10^3/uL (0.0-0.2); Absolute Eosinophil Count 0.27 10^3/uL (0.0-0.7); Absolute Lymphocyte Count 1.95 10^3/uL (1.2-3.4); Absolute Monocyte Count 0.47 10^3/uL (0.1-0.8); Absolute Neutrophil Count 3.59 10^3/uL (1.2-6.7); Basophils % 0.6; Eosinophils % 4.3; HCT 30.1 % (40.0-50.0); HGB 9.6 g/dL (13.5-17.5); Immature Grans % 0.3; Lymphocytes % 30.8; MCH 29.3 pg (27.0-33.0); MCHC 31.9 % (32.0-36.0); MCV 92 fL (80-95); MPV 10.8 fL (8.0-11.0); Monocytes % 7.4; Neutrophils % 56.6; Platelet Count 186 10^3/uL (130-400); RBC 3.28 10^6/uL (4.36-5.78); RDW 15.9 % (11.8-14.1); RDW-SD 51.3 fL; WBC 6.34 10^3/uL (4.4-10.8)
[2023-11-17 07:02] LABS: Anion Gap 8.6 mmol/L (3-11); BUN 23 mg/dL (7-18); CO2 25.4 mmol/L (21.0-32.0); CREATININE 0.5 mg/dL (0.70-1.30); Calcium 8.7 mg/dL (8.5-10.1); Chloride 109 mmol/L (98-107); Estimated GFR 119.71 (mL/min/1.73m2); Glucose 103 mg/dL (74-106); Magnesium 1.7 mg/dL (1.8-2.4); Potassium 3.6 mmol/L (3.5-5.1); Sodium 143 mmol/L (136-145)
[2023-11-17 07:42] VITALS: BP 146/92; PULSE 67; RESP 18; TEMP 36.6; O2SAT 97
[2023-11-17] MEDS: Magnesium Chloride 64 MG TABCR 128 MG PO (07:43)
[2023-11-17] MEDS: Mirabegron 25 MG TABCR PO (07:44)
[2023-11-17] MEDS: Senna TAB 2 TAB PO (07:44)
[2023-11-17] MEDS: Ascorbic Acid 500 MG TAB PO ×2 (07:44→11:52)
[2023-11-17] MEDS: Cholecalciferol (Vitamin D3) 1,000 UNIT TAB 1000 UNITS PO (07:45)
[2023-11-17] MEDS: Multivitamin w/Minerals TAB 1 TAB PO (07:45)
[2023-11-17] MEDS: Tamsulosin 0.4 MG CAPCR PO (07:45)
[2023-11-17] MEDS: Lactobacillus Acidophilus CAP 1 CAP PO ×2 (07:45→13:30)
[2023-11-17] MEDS: Baclofen 10 MG TAB 60 MG PO ×2 (07:45→13:29)
[2023-11-17] MEDS: Fluconazole 100 MG TAB 200 MG PO (07:46)
[2023-11-17] MEDS: Pregabalin 25 MG CAP PO ×2 (07:46→13:30)
[2023-11-17] MEDS: Docusate Sodium 100 MG CAP PO ×2 (07:46→13:30)
[2023-11-17] MEDS: Divalproex Sodium 500 MG TAB.ER.24H 1000 MG PO (07:46)
[2023-11-17] MEDS: Protein Nutritional Supplement 16 GM 1 OUNCE PACKET PO ×2 (07:47→13:31)
[2023-11-17] MEDS: Normal Saline Flush 10 ML SYR IVP (07:47)
[2023-11-17] MEDS: LORazepam 1 MG TAB PO ×2 (07:47→13:31)
[2023-11-17] MEDS: Enoxaparin 40 MG/0.4 ML SYR SC (07:47)
[2023-11-17] MEDS: Nystatin POWDER 15 GM JAR TP (07:48)
--- NOTE | 2023-11-17 08:52 | PDOC.CMPRO ---
Date of service: 11/17/23 Time of Service: 08:52 Care Management Progress Note Progress Note Text Progress Note Text: S/O: A: Favio is a 58 year old male admitted to [facility] on 11/11/23 with toxic metabolic encephalopathy. P: Favio will likely be discharged home with a resumption of services when medically cleared by provider. He will follow up with his PCP, community providers and plan of care as instructed. He will either be transported home via EMS vs. w/c van when ready. CM will continue to follow.
[2023-11-17] MEDS: MAGNESIUM SULFATE 2 GM/50 ML BAG IVPB (10:11)
[2023-11-17 12:12] VITALS: BP 141/87; PULSE 80; RESP 17; TEMP 36.8; O2SAT 97
[2023-11-17 13:34] LABS: Magnesium 2.3 mg/dL (1.8-2.4)
--- NOTE | 2023-11-17 13:51 | CMDISCH_ITS ---
Date of service: 11/17/23 Time of Service: 13:52 LACE Index Scoring Tool Questions: Length of Stay (in days): 4 - 6 E.D. Visits: 6 Care Management Discharge Plan Reason for Hospitalization: Toxic metabolic encephalopathy, UTI Discharge Plan: Favio will return home today in the care of his [facility] home provider, Jovanny You ([phone]). He will have a resumption of HH RN; ALCIDES contacted [facility] to inform of his discharge. He transported via [facility], EMS, as he has been bed bound during this admission. ALCIDES communicated with Jovanny, who stated that he is ready for him to return home. He will follow up with his PCP and discharge plan of care. He is happy to be going home. Patient/Family Education Needs: Review discharge instructions and limitations, discussion of self care needs including ask me three. Services Needed at Discharge: Home Health Care Services (resume HH RN) and Transportation ([facility], EMS) SDOH Health Related Social Needs: No Data to Display
== END 2023-11-17 14:25 | disposition home or self-care (01) | DRG 698 ==
LOC: ER 23:58 → MS 11-12 01:28
PROVIDERS: Nurse Practitioner Acute Care; Admitting Provider Internal Medicine; Emergency Provider Student in an Organized Health Care Education/Training Program; PCP Family Medicine; Visit Provider Internal Medicine
DX: T83.512A Infection and inflammatory reaction due to nephrostomy catheter, initial encounter (principal); G82.50 Quadriplegia, unspecified; U07.1 COVID-19; J18.9 Pneumonia, unspecified organism; G92.8 Other toxic encephalopathy; N39.0 Urinary tract infection, site not specified; N20.1 Calculus of ureter; J98.11 Atelectasis; K59.2 Neurogenic bowel, not elsewhere classified; E87.0 Hyperosmolality and hypernatremia; N31.9 Neuromuscular dysfunction of bladder, unspecified; F41.9 Anxiety disorder, unspecified; F51.04 Psychophysiologic insomnia; E87.6 Hypokalemia; Z79.899 Other long term (current) drug therapy; D64.9 Anemia, unspecified; Z96.0 Presence of urogenital implants; Z93.3 Colostomy status; S14.159S Other incomplete lesion at unspecified level of cervical spinal cord, sequela; K59.09 Other constipation; Z66 Do not resuscitate; Z98.1 Arthrodesis status; L89.899 Pressure ulcer of other site, unspecified stage; I10 Essential (primary) hypertension
CPT/HCPCS: 51705; 00123; 36415; 71250; 80048; 80053; 82306; 82805; 84145; 87040; 87637; 87641; 96361; 96365; 96366; 97162; 99222; 99232; 99285; J1650; 70450; 74176; 81003; 81015; 82607; 82728; 82746; 83540; 83550; 83605; 83735; 84443; 85025; 85379; 85610; 86140; 87086; 94667; 99223; 99233; 99239; J0248; J2543; J3475; J3490; J7060; J7613

== ENCOUNTER → 2023-11-12 09:02 | Outpatient (BNVA) | payer MEDICARE, MEDICAID, SELFPAY | PROVIDERS: PCP Family Medicine; Referring Provider Family Medicine; Visit Provider Urology ==

== ENCOUNTER → 2023-11-26 13:44 | Outpatient (BNVA) | payer MEDICARE, MEDICAID, SELFPAY | PROVIDERS: PCP Family Medicine; Referring Provider Family Medicine; Visit Provider Urology | DX: N20.1 Calculus of ureter (principal) | CPT/HCPCS: 99442 ==

== ENCOUNTER 2023-12-11 17:08 | Outpatient (REF) | payer MEDICARE, MEDICAID, SELFPAY ==
[2023-12-11 15:18] LABS: Bilirubin Negative (Negative); Blood Large (Negative); Clarity Cloudy (Clear); Glucose Negative (Negative); Ketones Negative (Negative); Leukocyte Esterase Moderate (Negative); Nitrite Positive (Negative); Specific Gravity 1.025 (1.005-1.025); Urobilinogen 0.2 mg/dL (Up to 0.2); pH 6.5 (5-8)
[2023-12-11 15:27] LABS: C & S Indicated? Yes; WBC >50 HPF (0-5)
== END 2023-12-11 17:09 | disposition home or self-care (01) ==
LOC: LBN 17:08
PROVIDERS: PCP Family Medicine; Visit Provider Family Medicine
DX: N39.0 Urinary tract infection, site not specified (principal); Z87.440 Personal history of urinary (tract) infections
CPT/HCPCS: 87077; 81003; 81015; 87086; 87186

== ENCOUNTER 2023-12-25 11:34 | Outpatient (REF) | payer MEDICARE, MEDICAID, SELFPAY ==
[2023-12-25 16:12] LABS: *AMPHETAMINES SCREEN URINE Negative (Negative); *BARBITURATES SCREEN URINE Negative (Negative); *BENZODIAZEPINES SCREEN URINE Negative (Negative); Cannabinoids THC Positive (Negative); Cocaine Screen,Urine Negative (Negative); METHADONE URINE SCREEN Negative (Negative); OPIATES URINE SCREEN Negative (Negative)
[2023-12-25 16:16] LABS: Tricyclic Antidepressants Negative (Negative)
== END 2023-12-25 11:35 | disposition home or self-care (01) ==
LOC: LBN 11:34
PROVIDERS: PCP Family Medicine; Visit Provider Family Medicine
DX: R41.82 Altered mental status, unspecified (principal); R82.5 Elevated urine levels of drugs, medicaments and biological substances
CPT/HCPCS: 80307

== ENCOUNTER 2024-01-05 19:01 | Outpatient (REF) | payer MEDICARE, MEDICAID, SELFPAY ==
[2024-01-05 15:50] LABS: Bilirubin Negative (Negative); Blood Large (Negative); Clarity Cloudy (Clear); Glucose Negative (Negative); Ketones Negative (Negative); Leukocyte Esterase Moderate (Negative); Nitrite Negative (Negative); Specific Gravity 1.025 (1.005-1.025); Urobilinogen 0.2 mg/dL (Up to 0.2)
[2024-01-05 16:02] LABS: Bacteria Moderate HPF (Negative); C & S Indicated? Yes; Casts Negative LPF (Negative); Crystals Negative HPF (Negative); Epithelial Cells Few HPF (Negative); Mucus Negative (Negative); WBC 20-50 HPF (0-5)
== END 2024-01-05 19:02 | disposition home or self-care (01) ==
LOC: LBN 19:01
PROVIDERS: PCP Family Medicine; Visit Provider Urology
DX: N39.0 Urinary tract infection, site not specified (principal)
CPT/HCPCS: 87077; 81003; 81015; 87086; 87186

== ENCOUNTER 2024-01-11 09:28 | Inpatient (IN) | payer MEDICARE, MEDICAID, SELFPAY ==
[2024-01-11] VITALS (12 sets, daily range): BP systolic 77–138; BP diastolic 45–88; PULSE 60–99; RESP 13–20; TEMP 35–38.3; O2SAT 92–96; BMI 23.7
--- NOTE | 2024-01-11 06:29 | W.ANESPRE ---
General Info Date of Service Date Performed: 01/11/24 Height: 6 ft 2 in Weight: 83.915 kg Body Mass Index (BMI): 23.7 Surgical Procedure: Operation Date: 01/11/24 07:40 Proposed Procedure Side Surgeon p Cystoscopy/Laser/Ureteroscopy/ Removal of Stent, Placement of Stent Right Ady Molina MD Meds Allergies and Home Medications Allergies Allergy/AdvReac Type Severity Reaction Status Date / Time No Known Allergies Allergy Verified 01/11/24 07:07 Home Medication Medication Instructions Recorded Lactobacillus acidoph-L.bulgaricus 1 tab PO TID #90 tabs 01/08/22 1 million cell tablet (Floranex) acetaminophen 325 mg tablet 650 mg (2 x 325 mg) PO Q6H PRN PRN 01/08/22 (Tylenol) fever or pain #30 tabs nutritional supplements 1 packet PO TID #90 ea 01/08/22 (Phlexy-Vits) magnesium chloride 64 mg 128 mg PO BID 02/24/22 (magnesium chloride) tablet,delayed release (Mag-Delay) diclofenac sodium 1 % topical gel 4 g topical QID PRN muscle pain 02/27/23 (Voltaren Arthritis Pain) #100 grams cholecalciferol (vitamin D3) 25 1,000 units PO DAILY 07/24/23 mcg (1,000 unit) tablet (Vitamin D3) sildenafil 100 mg tablet (Viagra) 100 mg PO DAILY PRN sexual activity 07/24/23 nystatin 100,000 unit/gram topical 1 applic topical BID #60 grams 08/07/23 powder lorazepam 1 mg tablet (Ativan) 1 mg PO .COMPLEX PRN anxiety #150 08/20/23 tabs naloxone 4 mg/actuation nasal 4 mg intranasal Q2M PRN opioid 08/21/23 spray (Narcan) overdose #2 ea baclofen 20 mg tablet 20 mg PO TID 11/11/23 docusate sodium 100 mg capsule 100 mg PO TID 11/11/23 (Col-Rite) ipratropium 0.5 mg-albuterol 3 mg 3 ml inhalation Q4H PRN 11/11/23 (2.5 mg base)/3 mL nebulization soln mirabegron 25 mg tablet,extended 25 mg PO DAILY 11/11/23 release 24 hr (Myrbetriq) multivitamin 1 tab PO DAILY 11/11/23 pantoprazole 40 mg tablet,delayed 40 mg PO DAILY 11/11/23 release (Protonix) pregabalin 25 mg capsule (Lyrica) 25 mg PO TID 11/11/23 sennosides 8.6 mg tablet (Senokot) 34.4 mg PO DAILY 11/11/23 sodium chloride 7 % for 1 inh inhalation BID 11/11/23 nebulization (Hyper-Daniel) qimodalh-had-bsuqc acid 0.4 1 tab PO DAILY 11/12/23 mg-lycopene 300 mcg-lutein 250 mcg tablet (Adults 50 Plus) tamsulosin 0.4 mg capsule 0.4 mg PO DAILY 11/12/23 ascorbic acid (vitamin C) 250 mg 250 mg PO BID #180 tabs 11/26/23 tablet divalproex 500 mg tablet,extended 500 mg PO BID #60 tabs 12/10/23 release 24 hr (Depakote ER) quetiapine 100 mg tablet 100 mg PO QHS #90 tabs 12/29/23 trazodone 100 mg tablet 100 mg PO QHS #90 tabs 12/29/23 Current Visit Medications: Current Medications Generic Name Dose Route Start Last Admin Trade Name Freq PRN Reason Stop Dose Admin Ringer's Solution 1,000 mls @ 80 mls/hr 01/11/24 06:00 IV 01/11/24 23:59 INFUSION ALDEN Ceftriaxone Sodium/Dextrose 1 gm in 50 mls @ 100 mls/hr 01/11/24 06:00 Rocephin IVPB 01/11/24 23:59 PREOP ALDEN IV Miscellaneous Supplies 1 each 01/11/24 06:00 Iv Access IV 01/11/24 23:59 DIRECTED ALDEN Sodium Chloride 0 ml 01/11/24 06:00 Normal Saline Flush 10 Ml Syr IV 01/11/24 23:59 PRN PRN Sodium Chloride 0 ml 01/11/24 06:00 Normal Saline 10 Ml Vial IJ 01/11/24 23:59 DIRECTED PRN Sterile Water 0 ml 01/11/24 06:00 Water,Injection,Sterile 10 Ml Vial IJ 01/11/24 23:59 DIRECTED PRN PFSH Active Problems Active Problems: Problem Status Onset Code Abrasion of foot, right S90.811A Urinary tract infection N39.0 History of UTI Z87.440 Palliative care patient Z51.5 Neck pain M54.2 Decubitus skin ulcer L89.90 Constipation due to neurogenic bowel K59.00, K59.2 Chronic recurrent multifocal osteomyelitis M86.30 Acute osteomyelitis of sacrum M46.28 Major depressive disorder F32.9 Quadriplegia G82.50 Hx of caloric malnutrition Z86.39 Medical History Medical History Muscle spasm Bladder stones Bronchospasm Insomnia Weight gain DIAMOND (acute kidney injury) Low magnesium level Open wound of abdominal wall Encounter for wound care Visit for wound check Right arm pain Malnutrition following gastrointestinal surgery Large bowel obstruction Iron deficiency anemia Hypokalemia Aspiration into airway Ileus Neurogenic bowel Physician orders for life-sustaining treatment (POLST) form indicates patient wish for ng-yhy-ropountffza status DNR (do not resuscitate) Decubitus ulcer of buttock, stage 4 H/O deep venous thrombosis DVT (deep venous thrombosis) DVT prophylaxis Constipation Fall down embankment Hypotension Acute embolism and thrombosis of deep vein of right lower extremity Fusion of spine Dislocation of C6/C7 cervical vertebrae C. difficile colitis Medical History Comments:: Daily marijauna, smoking Surgical History Surgical History History of infusaport central venous catheter insertion Suprapubic catheter S/P colostomy Tobacco Smoking/Tobacco Use Status: Never Alcohol Alcohol Intake: current Alcohol intake frequency: holidays/special occasions only Substance Use Substance use type: does not use Vital Signs and Lab Results Lab Results Blood Type / Crossmatch: No Data to Display Complete Blood Count: No Data to Display Complete Metabolic Panel: No Data to Display Liver Function Panel: No Data to Display Coagulation Panel: No Data to Display Cardiac Panel: No Data to Display Arterial Blood Gas: No Data to Display Venous Blood Gas: No Data to Display Pancreas Panel: No Data to Display Thyroid Panel: No Data to Display Infectious Disease: No Data to Display Blood Cultures: No Data to Display Toxicology Panel: Urine Amphetamines Screen Negative (Negative) 12/25/23 13:00 Urine Benzodiazepines Screen Negative (Negative) 12/25/23 13:00 Urine Barbiturates Screen Negative (Negative) 12/25/23 13:00 Urine Cocaine Screen Negative (Negative) 12/25/23 13:00 Urine Methadone Screen Negative (Negative) 12/25/23 13:00 Urine Opiates Screen Negative (Negative) 12/25/23 13:00 Ur Tricyclic Antidepressants Screen Negative (Negative) 12/25/23 13:00 Ur Tetrahydrocannabinol (THC) Scrn Positive (Negative) A 12/25/23 13:00 Imaging and Studies Imaging and Studies Study information below may be from another EMR and interpreted by another provider. Please see original notes in EMR for more complete details. EKG Summary: 02/20: sinus rhythm. Echocardiogram Summary: 09/04/21: EF 57%, No hemodynamic valve concerns 03/18/2021 Conclusion Left Ventricle : The left ventricle is normal size. The overall left ventricular systolic function appears normal. There is normal left ventricular wall thickness. Regional wall motion is not well visualized but grossly normal. The left ventricular diastolic function is normal. Right Ventricle : Right ventricle is not well visualized. Right ventricular systolic function could not be assessed. Atria : The left atrium size is normal. The right atrium size is normal. Valves: There are no hemodynamically significant valvular lesions. There is no clear evidence of endocarditis in this technically limited study. Great Vessels : The aortic root is normal in size. The ascending aorta is mildly dilated. IVC is normal in size and collapses >50% with inspiration. Please see remainder of findings for further details. Anesthesia Assessment and Plan Anesthesia History Personal History: Other (blood pressures swings possibly related to autonomic dysreflexia ) Family History: No Family History of Anesthesia Complications Exercise Tolerance Exercise Tolerance: Metabolic Equivalents<4 Pertinent Negatives Pertinent Negatives: No Symptoms of GERD, No Major Cardiovascular Symptoms or Complaints, No Major Pulmonary Symptoms or Complaints and No History of CVA/TIA Cardiac & Pulmonary Exam Cardiac Exam: Normal S1/S2 Heart Sounds Pulmonary Exam: Rhonchi Present (wet cough that pt and caregiver state is his normal state ) Implantable Cardiac Device Does patient have a Pacemaker or an ICD?: No Airway Exam Known Difficult Airway: No Mallampati Class: 3 Mouth Opening: Normal (> 3cm) Thyromental Distance: Greater than 3 cm Neck Range of Motion: Limited ROM Neck Circumference: Normal Teeth Condition: Loose or Chipped Airway Comments: multiple missing teeth. ASA Classification ASA Score: ASA 3 Emergency Case?: No NPO Status NPO Status: NPO Clears >2 hours, Solids >8 hours Anesthesia Plan Resuscitation Status: Full Code Anesthesia Technique: General Anesthesia Airway Planned: Endotracheal Tube Monitors Used: Standard Monitors
--- NOTE | 2024-01-11 07:00 | DI.RAD_ITS ---
Exam(s) XR RETROGRADE IN OR EXAM: XR RETROGRADE IN OR CLINICAL HISTORY: Ureteral Stone TECHNIQUE: 2D and realtime digital imaging was performed. CONTRAST MATERIAL: Refer to procedure report. COMPARISON: CT CT CHEST/ABD/PEL WO from 11/11/2023 FINDINGS: Fluoroscopy was provided for Dr. Molina during the performance of a retrograde evaluation of the jonnathan l collecting system. Please refer to the procedure report for complete details. Ka,r=9.33 mGy IMPRESSION: RADIATION DOSE DELIVERED: 0.0 2497.5 0
--- NOTE | 2024-01-11 07:07 | W.PM.HP.N ---
Date of service: 01/11/24 Time of Service: 07:07 Assessment and Plan Assessment and plan (1) Ureteral stone: Assessment and plan: We will plan to cover his most recent positive urine culture with vancomycin. We will do cystoscopy and treat any visible bladder stone. We will remove his ureteral stent and plan ureteroscopy with holmium laser lithotripsy of his previously identified ureteral stone. We will plan to keep him in the hospital overnight for additional IV antibiotics and to monitor him for sepsis symptoms History of Present Illness History of Present Illness Chief Complaint: Right ureteral stone Narrative: This is a 58-year-old gentleman who has a history of a neurogenic bladder. He has an indwelling suprapubic tube. He had a recent hospitalization for sepsis. He is found to have right hydronephrosis from an obstructing right proximal ureteral stone. He was treated with a stent placement. Following the stent placement, he was hospitalized with prolonged hypoxia. No significant respiratory pathology was identified, but he was then readmitted to our hospital with a COVID infection. He has since recovered from the Covid infection. He has had recurrent episodes of catheter occlusion requiring ED visits. His most recent urine culture grew Enterococcus sensitive to Vanco and Daptomycin. Previous cultures have grown Pseudomonas and Klebsiella. Review of Systems Narrative: c/o headache this morning. No fevers or chills No vision change or dysphasia No diabetes or thyroid dysfunction No shortness of breath, cough or hemoptysis No chest pain or palpitations Neurogenic bowel. No hepatitis, ulcers, jaundice Quadriplegia. No seizures No bleeding disorders Osteomyelitis. No gout PFSH All Active Problems Abrasion of foot, right (Acute) Urinary tract infection (Acute) History of UTI (Acute) Palliative care patient (Acute) Neck pain (Acute) Decubitus skin ulcer (Acute) Constipation due to neurogenic bowel (Acute) Chronic recurrent multifocal osteomyelitis (Chronic) Acute osteomyelitis of sacrum (Chronic) Major depressive disorder (Chronic) Quadriplegia (Chronic) Medical History Muscle spasm Bladder stones Bronchospasm Insomnia Weight gain DIAMOND (acute kidney injury) Low magnesium level Open wound of abdominal wall Encounter for wound care Visit for wound check Right arm pain Malnutrition following gastrointestinal surgery Large bowel obstruction Iron deficiency anemia Hypokalemia Aspiration into airway Ileus Neurogenic bowel Physician orders for life-sustaining treatment (POLST) form indicates patient wish for ge-ksj-wjxpdkjqscv status DNR (do not resuscitate) Decubitus ulcer of buttock, stage 4 H/O deep venous thrombosis DVT (deep venous thrombosis) DVT prophylaxis Constipation Fall down embankment Hypotension Acute embolism and thrombosis of deep vein of right lower extremity Fusion of spine Dislocation of C6/C7 cervical vertebrae C. difficile colitis Surgical History History of infusaport central venous catheter insertion Suprapubic catheter S/P colostomy Social History (System 11/19/23 @ 12:49 by Naomi Devine) Smoking/Tobacco Use Status: Never Smoking risk assessment performed?: Yes Alcohol Intake: current Alcohol Intake frequency: holidays/special occasions only Substance use type: does not use Housing: house Do you feel safe at home: Yes Do you feel safe in your relationship?: Yes Meds Allergies and Home Medications Allergies Allergy/AdvReac Type Severity Reaction Status Date / Time No Known Allergies Allergy Verified 01/11/24 07:07 Home Medications Medication Instructions Recorded Confirmed Type Lactobacillus acidoph-L.bulgaricus 1 tab PO TID #90 tabs 01/08/22 01/11/24 Rx 1 million cell tablet (Floranex) acetaminophen 325 mg tablet 650 mg (2 x 325 mg) PO Q6H PRN PRN 01/08/22 01/11/24 Rx (Tylenol) fever or pain #30 tabs nutritional supplements 1 packet PO TID #90 ea 01/08/22 01/11/24 Rx (Phlexy-Vits) magnesium chloride 64 mg 128 mg PO BID 02/24/22 01/11/24 History (magnesium chloride) tablet,delayed release (Mag-Delay) diclofenac sodium 1 % topical gel 4 g topical QID PRN muscle pain 02/27/23 01/11/24 Rx (Voltaren Arthritis Pain) #100 grams cholecalciferol (vitamin D3) 25 1,000 units PO DAILY 07/24/23 01/11/24 History mcg (1,000 unit) tablet (Vitamin D3) sildenafil 100 mg tablet (Viagra) 100 mg PO DAILY PRN sexual activity 07/24/23 01/11/24 History nystatin 100,000 unit/gram topical 1 applic topical BID #60 grams 08/07/23 01/11/24 Rx powder lorazepam 1 mg tablet (Ativan) 1 mg PO .COMPLEX PRN anxiety #150 08/20/23 01/11/24 Rx tabs naloxone 4 mg/actuation nasal 4 mg intranasal Q2M PRN opioid 08/21/23 01/11/24 Rx spray (Narcan) overdose #2 ea baclofen 20 mg tablet 20 mg PO TID 11/11/23 01/11/24 History docusate sodium 100 mg capsule 100 mg PO TID 11/11/23 01/11/24 History (Col-Rite) ipratropium 0.5 mg-albuterol 3 mg 3 ml inhalation Q4H PRN 11/11/23 01/11/24 History (2.5 mg base)/3 mL nebulization soln mirabegron 25 mg tablet,extended 25 mg PO DAILY 11/11/23 01/11/24 History release 24 hr (Myrbetriq) multivitamin 1 tab PO DAILY 11/11/23 01/11/24 History pantoprazole 40 mg tablet,delayed 40 mg PO DAILY 11/11/23 01/11/24 History release (Protonix) pregabalin 25 mg capsule (Lyrica) 25 mg PO TID 11/11/23 01/11/24 History sennosides 8.6 mg tablet (Senokot) 34.4 mg PO DAILY 11/11/23 01/11/24 History sodium chloride 7 % for 1 inh inhalation BID 11/11/23 01/11/24 History nebulization (Hyper-Daniel) pllttfzd-ndw-nrlik acid 0.4 1 tab PO DAILY 11/12/23 01/11/24 History mg-lycopene 300 mcg-lutein 250 mcg tablet (Adults 50 Plus) tamsulosin 0.4 mg capsule 0.4 mg PO DAILY 11/12/23 01/11/24 History ascorbic acid (vitamin C) 250 mg 250 mg PO BID #180 tabs 11/26/23 01/11/24 Rx tablet divalproex 500 mg tablet,extended 500 mg PO BID #60 tabs 12/10/23 01/11/24 Rx release 24 hr (Depakote ER) quetiapine 100 mg tablet 100 mg PO QHS #90 tabs 12/29/23 01/11/24 Rx trazodone 100 mg tablet 100 mg PO QHS #90 tabs 12/29/23 01/11/24 Rx Exam Narrative Exam Narrative: He is in a wheelchair. He appears chronically ill. His vital signs are documented elsewhere in his chart His lungs show decreased breath sounds at the bases Cardiac exam shows a regular rate and rhythm His abdomen is soft with no mass He is awake and alert Time Spent Time spent with Patient: <40 minutes Time was spent: other
[2024-01-11] MEDS: Lactated Ringers 1,000 ML 80 ML IV ×2 (07:34→14:03)
[2024-01-11] MEDS: VANCOMYCIN/WATER (PEG) 1 GM/200 ML BAG IVPB (07:52)
[2024-01-11] MEDS: Omnipaque 300 MG/ML 50 ML BTL (08:43)
[2024-01-11] MEDS: Lidocaine 2% Jelly 11 ML SYR (08:44)
--- NOTE | 2024-01-11 09:17 | ROE_ITS ---
Date of service: 01/11/24 Time of Service: 09:17 Operative Note Operative Note DATE OF PROCEDURE: 01/11/24 PRE-OP DIAGNOSIS: Right ureteral stone POST-OP DIAGNOSIS: other (1. Bladder stone 2. Right kidney stones) PROCEDURE: Cystoscopy, evacuation of bladder stone, remove right ureteral stent, right retrograde pyelogram, right flexible ureteroscopy with holmium laser lithotripsy of upper pole stones, extraction of stone fragments, insert right ureteral stent, change suprapubic tube. SURGEON: Ady Molina ANESTHESIA TYPE: Local By Surgeon and General LMA/ETT Refer to Anesthesia Record ESTIMATED BLOOD LOSS: 5 PATHOLOGY: other (1. Bladder stone for chemical analysis 2. Right kidney stones for chemical analysis) COMPLICATIONS: None Patient was transported to: PACU Patient's condition: stable Implants: 6 Mauritian by 22 to 30 cm right ureteral stent 18 Mauritian suprapubic tube with 10 cc of sterile water in balloon Indications: This is a 58-year-old gentleman who has a history of a neurogenic bladder due to quadriplegia. He is managed with an indwelling suprapubic tube. He developed urosepsis due to an obstructing right ureteral stone. He had a ureteral stent placed and he was given appropriate antibiotics. He presents now for ureteroscopy and treatment of his ureteral stone. Findings: Stone and bladder Multiple stones in right upper pole calyx Procedure Description: The patient was given preoperative IV antibiotics. He was brought to the operating room on 01/10/2023. After successful induction of general anesthesia, he was placed in the dorsal lithotomy position. His suprapubic tube was clamped. His genitalia was prepped and draped sterilely. 2% Xylocaine jelly was then instilled into the urethra. A 22 Mauritian rigid cystoscope was passed through the urethra into the bladder. The urethra and bladder were inspected with a 30 degree lens. The pendulous urethra showed no evidence of stricture. There was mild narrowing in the membranous urethra but the scope could not easily pass through the mild stricture. The prostatic urethra showed no active bleeding. There was mild lateral lobe enlargement and no significant median lobe enlargement. The bladder neck was entered and the bladder mucosa was inspected. A large stone was seen at the base of the bladder. A stent could be seen protruding from the right ureteral orifice. There was some inflammatory polyps surrounding the right ureteral orifice. I then utilized an alligator forceps to extract the bladder stone. The stone was sent for chemical analysis. The cystoscope was reintroduced and the right ureteral stent was grasped using the alligator forceps. The stent was brought to the level of the urethral meatus. A Glidewire was advanced through the lumen of the stent and the stent w as removed leaving the wire in place. A ureteral access catheter was advanced over the wire and the catheter was positioned in the mid right ureter. A retrograde pyelogram was obtained by injecting Omnipaque through the access catheter under fluoroscopic guidance. No specific filling defects were seen in the upper ureter. Multiple filling defects were seen in the upper pole calyx on the right. I then reintroduced the guidewire and removed the access catheter. I passed a dual-lumen catheter over the wire and positioned a second wire. We chose one of the wires as a working wire and the second as a safety wire. We removed the dual-lumen catheter and advanced a ureteral access sheath over the working wire. The tip of the sheath was positioned in the proximal right ureter. I then passed the flexible ureteroscope through the access sheath and maneuvered the scope into the ureter. I did not see any stones in the proximal ureter, but on inspection of each of the calyces, we found at least 6 different stones in the upper pole calyx. I treated these stones with a 272 ?m holmium laser fiber. We used a combination of dusting settings and fragmentation settings to treat the stones. The stones fragmented quite nicely. I then grasped multiple fragments in a 0 tip stone basket and removed the fragments. These stones were sent to the laboratory separately for chemical analysis. Once all large stone particles had been removed, there remained some very small stone pieces in the upper pole calyx. I would expect that these stone particles should be able to pass on their own. I removed the ureteroscope and access sheath. I passed a 6 Mauritian variable length stent over the safety wire. We position the stent with the proximal end in the upper pole calyx and the distal end within the bladder. We left the safety string in place and brought it through the urethra. We taped the end of the safety string to the dorsum of the penis using Steri-Strips. We then unclamped his suprapubic tube, deflated the catheter balloon and removed the catheter. I passed an 18 Mauritian catheter through the suprapubic tract into the bladder. We inflated the balloon with 10 cc of sterile water and hooked the catheter back to gravity drainage. The patient tolerated this procedure well with no complications. He was taken to the recovery room in stable condition. He will be kept in the hospital overnight for additional antibiotics given his history of sepsis.
--- NOTE | 2024-01-11 09:17 | W.BRIEF ---
Date of service: 01/11/24 Time of Service: 09:17 Brief Operative Note Procedure/Pre & Post Op Diagnoses/Survey Research Analyst: Operation Date: 01/11/24 07:40 Actual Procedures p Cystoscopy/Laser/Ureteroscopy/ Removal of Stent, Placement of Stent(Right) - Ady Molina MD Pre-Op Diagnosis: Right Ureteral Stone Post-Op Diagnosis: Right Ureteral Stone Anesthesia Anesthesia Type: Local By Surgeon and General LMA/ETT 5 cc Specimen/Culture Specimen(s): 1. Bladder Stone 2. Kidney Stone Right Complications Complications: None Additional Procedure Notes Note: 6 Hungarian by 22 to 30 cm right ureteral stent with safety string taped to dorsum of penis 18 lithuanian suprapubic tube with 10 cc sterile water in balloon
[2024-01-11] MEDS: ePHEDrine 25 MG/5 ML Syringe IVP (09:38)
--- NOTE | 2024-01-11 10:44 | W.ANESPOSTOP ---
Postoperative Evaluation Date, Time and Location Date Performed: 01/11/24 Time Performed: 10:44 Patient Location: PACU Vital Signs Most Recent Imported Vital Signs: Most Recent Vital Signs Temp Pulse Resp BP Pulse Ox 35 C L 74 18 136/79 92 01/11/24 10:33 01/11/24 10:33 01/11/24 10:33 01/11/24 10:33 01/11/24 10:33 Pain Score Most Recent Pain Score: Most Recent Pain Score Pain Level 0 01/11/24 10:33 Assessment Mental Status: Awake (Alert & Oriented to Patient Baseline) Airway and Respiratory Function: Patent airway with normal (patient baseline) respiratory exam Cardiovascular Function: Hemodynamically Stable Hydration Status: Adequately Hydrated Nausea & Vomiting: No Nausea or Vomiting Pain: Pt. Denies Any Pain Peripheral Nerve Block: Patient did not receive a nerve block
[2024-01-11] MEDS: LORazepam 1 MG TAB PO ×3 (13:58→21:47)
[2024-01-11] MEDS: Docusate Sodium 100 MG CAP PO ×2 (13:59→19:43)
[2024-01-11] MEDS: Protein Nutritional Supplement 16 GM 1 OUNCE PACKET PO ×2 (13:59→19:44)
[2024-01-11] MEDS: Baclofen 10 MG TAB 20 MG PO ×2 (13:59→19:41)
[2024-01-11] MEDS: Pregabalin 25 MG CAP PO ×2 (13:59→19:42)
[2024-01-11] MEDS: Acetaminophen 325 MG TAB 650 MG PO ×2 (17:36→22:40)
[2024-01-11] MEDS: Diclofenac 1% Gel 100 GM TUBE TP ×2 (17:48→19:40)
[2024-01-11] MEDS: VANCOMYCIN 500 MG in Normal Saline 100 ML 100 MG IVPB (19:41)
[2024-01-11] MEDS: Magnesium Chloride 64 MG TABCR 128 MG PO (19:41)
[2024-01-11] MEDS: Ascorbic Acid 500 MG TAB 250 MG PO (19:42)
[2024-01-11] MEDS: Divalproex Sodium 500 MG TAB.ER.24H PO (19:43)
[2024-01-11] MEDS: traZODone 100 MG TAB PO (21:07)
[2024-01-11] MEDS: QUEtiapine 100 MG TAB PO (21:07)
[2024-01-12] VITALS (15 sets, daily range): BP systolic 88–110; BP diastolic 51–63; PULSE 79–98; RESP 2–30; TEMP 37.8–38.7; O2SAT 1–99
[2024-01-12] MEDS: Lactated Ringers 1,000 ML 125 ML IV ×3 (01:30→20:59)
[2024-01-12] MEDS: Lactated Ringers 500 ML 1000 ML IV (01:30)
--- NOTE | 2024-01-12 01:40 | DI.RAD_ITS ---
Exam(s) XR PORTABLE CHEST AP EXAM: XR PORTABLE CHEST AP CLINICAL HISTORY: productive cough. TECHNIQUE: 2D digital imaging was performed. COMPARISON: CR XR PORTABLE CHEST AP from 08/28/[address] CHEST/ABD/PEL WO from 11/11/2023 FINDINGS: Single AP portable view. Again noted is fusion hardware in the visualized cervical spine and a left subclavian Port-A-Cath wit h distal tip in good position in the SVC. Heart size is upper normal. The mediastinum is not widened. There is a bandlike infiltrate in the mid left lung field now evident with some volume loss in left h emithorax when compared to previous. The right lung is clear. Probable small left pleural effusion. IMPRESSION: Left midlung linear infiltrate and small left pleural effusion.These findings were not evident on yolanda or chest x-ray of 08/28/2023. DATA REPOSITORY: RADIATION DOSE DELIVERED:
[2024-01-12] MEDS: GENTAMICIN 120 MG in Normal Saline 100 ML 103 MG IVPB (01:56)
[2024-01-12 02:23] LABS: COVID-19 PCR Negative (Negative); Influenza A PCR Negative (Negative); Influenza B PCR Negative (Negative); RSV PCR Negative (Negative)
[2024-01-12 02:31] LABS: Source Nasopharynx
--- NOTE | 2024-01-12 02:59 | DI.VRAD_ITS ---
PROCEDURE INFORMATION: Exam: XR Chest Exam date and time: 01/12/2024 1:31 AM Age: 58 years old Clinical indication: Patient HX: Productive cough TECHNIQUE: Imaging protocol: Radiologic exam of the chest. Views: 1 view. COMPARISON: CT CHEST/ABD/PEL WO 11/11/2023 9:21 PM FINDINGS: Tubes, catheters and devices: Chest wall port present. Lungs: See Heart/Mediastinum finding. Pleural spaces: Probable small left pleural effusion. Heart/Mediastinum: There is a thick linear opacity in the mid left lung with adjacent sharply marginated prominence of the left hilar/infrahilar mediastinal contour. Findings are suspicious for some combination of atelectasis, scarring, or postsurgical change. Recommend correlation with history. Consider CT scan for further characterization. Bones/joints: Unremarkable. IMPRESSION: 1. There is a thick linear opacity in the mid left lung with adjacent sharply marginated prominence of the left hilar/infrahilar mediastinal contour. Findings are suspicious for some combination of atelectasis, scarring, or postsurgical change. Recommend correlation with history. Consider CT scan for further characterization. 2. Probable small left pleural effusion. Dictated and Authenticated by: Twin Nash MD. Ordering:DUNCAN Garsia MD
[2024-01-12] MEDS: Acetaminophen 325 MG TAB 650 MG PO ×3 (05:30→19:48)
[2024-01-12] MEDS: Diclofenac 1% Gel 100 GM TUBE TP ×2 (05:31→08:06)
[2024-01-12 07:59] LABS: Abs Immature Grans 0.08 10^3/uL (0.0-0.06); Absolute Basophil Count 0.05 10^3/uL (0.0-0.2); Absolute Eosinophil Count 0.02 10^3/uL (0.0-0.7); Absolute Lymphocyte Count 0.92 10^3/uL (1.2-3.4); Absolute Neutrophil Count 6.64 10^3/uL (1.2-6.7); Basophils % 0.6; Eosinophils % 0.2; Lymphocytes % 11.1; MCH 28.6 pg (27.0-33.0); MCHC 33.3 % (32.0-36.0); MCV 86 fL (80-95); Monocytes % 7.2; Neutrophils % 79.9; RBC 3.84 10^6/uL (4.36-5.78); RDW 15.3 % (11.8-14.1); RDW-SD 48.2 fL; WBC 8.31 10^3/uL (4.4-10.8)
[2024-01-12] MEDS: Protein Nutritional Supplement 16 GM 1 OUNCE PACKET PO ×3 (08:03→20:16)
[2024-01-12] MEDS: LORazepam 1 MG TAB PO ×3 (08:05→20:52)
[2024-01-12] MEDS: Docusate Sodium 100 MG CAP PO ×3 (08:05→20:17)
[2024-01-12] MEDS: Tamsulosin 0.4 MG CAPCR PO (08:05)
[2024-01-12] MEDS: Multivitamin TAB 1 TAB PO (08:05)
[2024-01-12] MEDS: Magnesium Chloride 64 MG TABCR 128 MG PO ×2 (08:05→20:17)
[2024-01-12] MEDS: Senna TAB 4 TAB PO (08:05)
[2024-01-12] MEDS: Baclofen 10 MG TAB 20 MG PO ×3 (08:05→19:48)
[2024-01-12] MEDS: Pantoprazole 40 MG TABCR PO (08:05)
[2024-01-12] MEDS: Mirabegron 25 MG TABCR PO (08:05)
[2024-01-12] MEDS: Divalproex Sodium 500 MG TAB.ER.24H PO ×2 (08:05→19:48)
[2024-01-12] MEDS: Ascorbic Acid 500 MG TAB 250 MG PO ×2 (08:06→20:17)
[2024-01-12] MEDS: Cholecalciferol (Vitamin D3) 1,000 UNIT TAB 1000 UNITS PO (08:06)
[2024-01-12] MEDS: Pregabalin 25 MG CAP PO ×3 (08:06→20:17)
[2024-01-12 08:15] LABS: ALT 14 U/L (16-63); AST 30 U/L (15-37); Albumin 2.7 g/dL (3.4-5.0); Alkaline Phosphatase 52 U/L (46-116); Anion Gap 7.5 mmol/L (3-11); BUN 32 mg/dL (7-18); Bilirubin, Total 0.5 mg/dL (0.2-1.0); CO2 27.5 mmol/L (21.0-32.0); CREATININE 0.9 mg/dL (0.70-1.30); Calcium 8.5 mg/dL (8.5-10.1); Chloride 106 mmol/L (98-107); Estimated GFR 100.24 (mL/min/1.73m2); Glucose 97 mg/dL (74-106); Potassium 4.5 mmol/L (3.5-5.1); Sodium 141 mmol/L (136-145); Total Protein 6.3 g/dL (6.4-8.2)
[2024-01-12 08:24] LABS: Diff Comment PLT Morph Reviewed; RBC Morphology Normal
[2024-01-12] MEDS: VANCOMYCIN 500 MG in Normal Saline 100 ML 100 MG IVPB (09:03)
--- NOTE | 2024-01-12 11:42 | PGE_ITS ---
Date of Service Date of service: 01/12/24 Time of Service: 11:43 Assessment and Plan Assessment and plan (1) History of UTI: Status: Acute (2) Ureteral stone: Assessment and plan: We are concerned that he is developing postprocedural sepsis. His preprocedural urine culture that we used to decide his antibiotic coverage grew Enterococcus. He did have a lower level of Lisa in the urine (obtained from his suprapubic catheter) as well. He now has some changes to his chest x-ray, so we are adjusting his antibiotic coverage to Zosyn which should give us coverage of both urinary tract and pulmonary organisms. Type obtained blood cultures and I will ask our hospitalist colleagues to help with antibiotic coverage and any medical management/supportive management that the patient might require. Subjective Subjective Interval history since last seen: The patient became febrile and somewhat hypotensive and tachycardic overnight. He had received vancomycin prior to the procedure based on a preprocedural urine culture. We had broadened his coverage to include an aminoglycoside last evening. He is now having some rigors and chills along with a headache. He has a cough and we obtained a chest x-ray last evening. There is a new possible infiltrate in the mid left lung. Exam Narrative Exam Narrative: He appears uncomfortable His vital signs are documented elsewhere His urine is brown-tinged as would be expected from his surgery yesterday His chest x-ray shows a new left middle lobe density He is awake and alert Objective Last Vital Signs Temp 37.8 C H 01/12/24 07:45 Pulse 91 H 01/12/24 07:45 Resp 18 01/12/24 07:45 BP 93/51 L 01/12/24 07:45 Pulse Ox 95 01/12/24 07:45 Laboratory Results - last 24 hr 01/12/24 01/12/24 01:40 07:45 WBC 8.31 RBC 3.84 L Hgb 11.0 L Hct 33.0 L MCV 86 MCH 28.6 MCHC 33.3 RDW 15.3 H Plt Count MPV Immature Gran % 1.0 Neutrophils % 79.9 Lymphocytes % 11.1 Monocytes % 7.2 Eosinophils % 0.2 Basophils % 0.6 Nucleated RBC % 0.0 Absolute Neutrophils 6.64 Absolute Lymphocytes 0.92 L Absolute Monocytes 0.60 Absolute Eosinophils 0.02 Absolute Basophils 0.05 RBC Morphology Normal Sodium 141 Potassium 4.5 Chloride 106 Carbon Dioxide 27.5 Anion Gap 7.5 BUN 32 H Creatinine 0.9 Est GFR (CKD-EPI 2020) 100.24 Glucose 97 Calcium 8.5 Total Bilirubin 0.5 AST 30 ALT 14 L Alkaline Phosphatase 52 Total Protein 6.3 L Albumin 2.7 L COVID-19 Source Nasopharynx SARS-CoV-2 (PCR) Negative Influenza Type A (PCR) Negative Influenza Type B (PCR) Negative RSV (PCR) Negative Time Spent with Patient Time Spent with Patient: 25-34 minutes Time was spent: preparing to see the patient(eg.review tests), ordering medications,tests, procedures, referring, communicating with other health acute care nurse practitioner and indepentently interpreting results
[2024-01-12] MEDS: HYDROmorphone 2 MG/ML SYR 0.5 MG IVP ×2 (11:57→15:58)
[2024-01-12] MEDS: PIPERACILLIN/TAZO 3.375 GM in Normal Saline 50 ML IVPB ×3 (12:29→23:30)
--- NOTE | 2024-01-12 13:03 | W.MEDCONSULT ---
Date of service: 01/12/24 Time of Service: 13:03 Assessment and Plan Assessment and plan (1) Sepsis associated hypotension: Status: Acute Assessment and plan: Favio has two sources of infection: UTI associated w/ indwelliing suprapubic catheter and associated w/ nephrolithiasis requiring recent instrumentation (cystoscopy, holium lithotripsy to right ureteral stone and stone removal and stenting) and LLL pneumonia. I suspect the sepsis is primarily d/t the urinary source, the pneumonia is probably from atelectasis; Favio gives no hx of vomiting or aspiration. I think that he has excellent antibiotic coverage w/ Zosyn and Vancomycin. The Vancomycin will cover Staph and Enterococcus and Zosyn will cover gram negatives, including Pseudomonas and has good gram positive coverage as well i.e. Strep. I added doxycycline for coverage of atypical organisms that cause pneumonia such as chlamydia, mycoplasma and legionella although I have low suspicion for these. I have ordered sputum culture, blood culture has already been obtained. I think that Favio has been adequatedly resuscitated w/ iv volume and if he developes further hypotension then he should be moved to ICU for norepinephrine infusion. However, I am optimistic that he will start responding to the antibiotics. I think he is a little volume overloaded now and I gave him a single dose of lasix and decreased his iv fluid rate to a maintenance level. He has good urine output. Professional interviewing and examining patient, discussion of goals of care with hospital team (care management, nursing and consulting professionals) was 60 minutes. Outside of time spent performing POCUS exam. (2) Urinary tract infection: Status: Acute Qualifiers: Urinary tract infection type: catheter-associated UTI Indwelling urinary catheter type: indwelling urethral catheter Encounter type: initial encounter Qualified Code(s): T83.511A - Infection and inflammatory reaction due to indwelling urethral catheter, initial encounter; N39.0 - Urinary tract infection, site not specified (3) Left lower lobe pneumonia: Status: Acute Assessment and plan: initiate DuoNeb treatments q4h while awake, check sputum gram stain and culture, sputum mycoplasma, urine legionella antigen, urine strep antigen. initiate IS and acapella and chest physiotherapy, supplemental oxygen to keep SPO2 >=92% Qualifiers: Pneumonia type: due to unspecified organism Qualified Code(s): J18.9 - Pneumonia, unspecified organism History of Present Illness History of Present Illness Chief Complaint: chills rigors Narrative: Favio is 58 yr old male w/ hx of paraplegia and neurogenic bowel and bladder w/ hx of sacral decubitus wounds, recurrent UTI, suprapubic catheter who has nephrolithasis and was admitted overnight yesterday after cystoscopy w/ right sided lithotripsy and stone removal and stent placement and bladder stone removal and change of his SPC. His recent urine culture from 01/04 was growing Enterococcus and he was prophylaxed w/ Vancomycin. However, post procedure he had some hypotension ( 77/45) which responded to iv fluids. He was admitted overnight for observation to monitor for sepsis and for continued antibiotics. He was given gentamicin and further vancomycin. His BP stabilized yesterday after fluids but then dropped again last night (80-90's systolic) and he was given more iv fluids. Today his BP has stabilized but he has now developed moist cough productive but trouble mobilizing and some hypoxemia. CXR was done and shows LLL volume loss and infiltrate left mid lung field and probable small left pleural effusion. Hospitalist service was asked to consult for assistance w/ medical management. Consults Consult date: 01/12/24 Requesting physician: Ady Molina Review of Systems All systems reviewed & are unremarkable except as noted in HPI and below PFSH All Active Problems (Updated 01/12/24 @ 15:50 by Boo Olson MD) Left lower lobe pneumonia (Acute) Sepsis associated hypotension (Acute) Abrasion of foot, right (Acute) Urinary tract infection (Acute) History of UTI (Acute) Palliative care patient (Acute) Neck pain (Acute) Decubitus skin ulcer (Acute) Constipation due to neurogenic bowel (Acute) Chronic recurrent multifocal osteomyelitis (Chronic) Acute osteomyelitis of sacrum (Chronic) Major depressive disorder (Chronic) Quadriplegia (Chronic) Medical History Muscle spasm Bladder stones Bronchospasm Insomnia Weight gain DIAMOND (acute kidney injury) Low magnesium level Open wound of abdominal wall Encounter for wound care Visit for wound check Right arm pain Malnutrition following gastrointestinal surgery Large bowel obstruction Iron deficiency anemia Hypokalemia Aspiration into airway Ileus Neurogenic bowel Physician orders for life-sustaining treatment (POLST) form indicates patient wish for [id number] status DNR (do not resuscitate) Decubitus ulcer of buttock, stage 4 H/O deep venous thrombosis DVT (deep venous thrombosis) DVT prophylaxis Constipation Fall down embankment Hypotension Acute embolism and thrombosis of deep vein of right lower extremity Fusion of spine Dislocation of C6/C7 cervical vertebrae C. difficile colitis Surgical History History of infusaport central venous catheter insertion Suprapubic catheter S/P colostomy Social History (System 11/19/23 @ 12:49 by Naomi Devine) Smoking/Tobacco Use Status: Never Smoking risk assessment performed?: Yes Alcohol Intake: current Alcohol Intake frequency: holidays/special occasions only Substance use type: does not use Housing: house Do you feel safe at home: Yes Do you feel safe in your relationship?: Yes Exam Narrative Exam Narrative: Favio appears ill face is plethoric but no diaphoresis, neck veins are nondistended pulse is regular Lungs coarse rhonchi and wheezes bilaterally no rales Heart is regular no appreciable murmur rub or gallop Abdomen soft nondistended nontender suprapubic catheter in place. Extremities without peripheral cyanosis or edema extremities are warm and dry. Skin over his arms and legs is intact. I did not look over his sacrum this afternoon. SPC draining tea colored urine but no carmen blood or pus. Results Last Vital Signs Temp 38.4 C H 01/12/24 11:54 Pulse 95 H 01/12/24 11:54 Resp 22 01/12/24 11:54 BP 110/56 L 01/12/24 11:54 Pulse Ox 93 01/12/24 11:54 Labs 01/12/24 07:45 01/12/24 07:45 Labs: Laboratory Results - last 24 hr 01/12/24 01/12/24 01:40 07:45 WBC 8.31 RBC 3.84 L Hgb 11.0 L Hct 33.0 L MCV 86 MCH 28.6 MCHC 33.3 RDW 15.3 H Plt Count MPV Immature Gran % 1.0 Neutrophils % 79.9 Lymphocytes % 11.1 Monocytes % 7.2 Eosinophils % 0.2 Basophils % 0.6 Nucleated RBC % 0.0 Absolute Neutrophils 6.64 Absolute Lymphocytes 0.92 L Absolute Monocytes 0.60 Absolute Eosinophils 0.02 Absolute Basophils 0.05 RBC Morphology Normal Sodium 141 Potassium 4.5 Chloride 106 Carbon Dioxide 27.5 Anion Gap 7.5 BUN 32 H Creatinine 0.9 Est GFR (CKD-EPI 2020) 100.24 Glucose 97 Calcium 8.5 Total Bilirubin 0.5 AST 30 ALT 14 L Alkaline Phosphatase 52 Total Protein 6.3 L Albumin 2.7 L COVID-19 Source Nasopharynx SARS-CoV-2 (PCR) Negative Influenza Type A (PCR) Negative Influenza Type B (PCR) Negative RSV (PCR) Negative
[2024-01-12] MEDS: VANCOMYCIN/WATER (PEG) 1 GM/200 ML BAG IV (13:21)
[2024-01-12] MEDS: Albuterol/Ipratropium 3 ML UPD VIAL UPD ×2 (14:56→19:45)
--- NOTE | 2024-01-12 14:58 | W.POCUS ---
Pocus Exam Limited Thoracic Lung Exam DATE OF EXAM: 01/12/24 TIME OF EXAM: 14:23 REASON FOR EXAM: Shortness ofBreath VISUALIZED STRUCTURES: right anterior, left anterior, right lateral, left lateral, right subcostal and left subcostal PERTINENT FINDINGS/IMPRESSION: B-lines/left side thoracis location: anterior and lateral and B-lines/right side thoracis location: lateral and posterior; no pleural effusion on the left and no pleural effusion on the right DIFFERENTIAL DIAGNOSES: A/B pattern consistent w/ pneumonia; however, no air bronchograms were identified.
--- NOTE | 2024-01-12 15:08 | W.POCUS ---
Pocus Exam Limited Cardiac Exam DATE OF EXAM: 01/12/24 TIME OF EXAM: 14:38 PROVIDER THAT PERFORMED THE STUDY: Boo Olson REASON FOR EXAM: Dyspnea, Evaluation of LV function and Hypotension VISUALIZED STRUCTURES: left atrium, left ventricle, LVOT, right atrium, right ventricle, aortic valve, mitral valve, Interventricular septum and IVC (IVC was seen but image did not capture, IVC appears plethoric but w/ >50% collapse w/ inspiration) VIEW OBTAINED: Apical 4-Chamber (poor images from A4C view d/t body positioning/habitus), Parasternal long-axis, Parasternal short-axis and Subxiphoid PERTINENT FINDINGS/IMPRESSION: IVC inspiratory collapsability and Plethoric IVC; No LV dysfunction, No pericardial effusion, No RV dilation and No RV dysfunction Exam complete
[2024-01-12] MEDS: DOXYCYCLINE 100 MG in Normal Saline 100 ML IVPB (15:11)
[2024-01-12] MEDS: Furosemide 20 MG/2 ML VIAL IVP (15:51)
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
[2024-01-12] MEDS: Ketorolac 15 MG/ML VIAL IVP (19:48)
[2024-01-12] MEDS: QUEtiapine 100 MG TAB PO (20:52)
[2024-01-12] MEDS: traZODone 100 MG TAB PO (20:52)
[2024-01-13] VITALS (15 sets, daily range): BP systolic 92–134; BP diastolic 55–77; PULSE 83–100; RESP 2–22; TEMP 37.1–38.3; O2SAT 92–98
--- NOTE | 2024-01-13 | DI.CT_ITS ---
Exam(s) CT CHEST PE CTA EXAM: CT CHEST PE CTA CLINICAL HISTORY: dyspnea, hypoxia, elevated d-dimer. TECHNIQUE: Imaging Protocol: Axial CT angiography was performed with multi-slice acquisition and mu lti-planar and/or 3D reconstructions. CONTRAST MATERIAL: Intravenous: Omnipaque 350 contrast volume:100 mL COMPARISON: CT CT CHEST PE CTA from 05/10/[address] CHEST/ABD/PEL WO from 11/11/2023 FINDINGS: The examination is limited due to patient motion artifact. Tracheobronchial tree: Patent where visualized. Pulmonary parenchyma: There are small bilateral pleural effusions and subjacent infiltrates, left gre ater than right. No architectural distortion. Pulmonary Arteries: Evaluation of the peripheral pulmonary arteries is limited due to patient motion artifact. No large central pulmonary embolism is seen. Mediastinum and Parvin: No dominant adenopathy or fluid collection. The esophagus is unremarkable. Visualized thyroid gland: Unremarkable. Pleura: No pneumothorax. Heart: The heart is not dilated. Mild coronary artery calcification is present. No pericardial effus ion. Aorta: Thoracic aorta non-dilated. No evidence of dissection. Upper abdomen: Unremarkable. Tubes, Catheters, and Lines: There is a left-sided Poagsi-E-Okpa catheter. Soft tissues: Unremarkable. Bones: Within normal limits for the patient's age. IMPRESSION: 1. Within the limits of the examination no pulmonary embolism is seen. 2. Bilateral small pleural effusions and subjacent infiltrates which may represent atelectasis or pne umonia. RADIATION DOSE DELIVERED: Total DLP DATA REPOSITORY: All CT scans at this facility are submitted to the National Radiology Data Registry (NRDR) Dose Index Registry (DIR) with the [employer] (A[employer]). RADIATION OPTIMIZATION: All CT scans at this facility use at least one of these dose optimization te chniques: automated exposure control; mA and/or kV adjustment per patient size (includes targeted exa ms where dose is matched to clinical indication); or iterative reconstruction.
--- NOTE | 2024-01-13 | DI.RAD_ITS ---
Exam(s) XR SHOULDER RT COMPLETE 2+V EXAM: XR SHOULDER RT COMPLETE 2+V CLINICAL HISTORY: right shoulder pain. TECHNIQUE: 2D digital imaging was performed. COMPARISON: CR,XR XR SHOULDER LT COMPLETE 2+V from 02/20/2021 FINDINGS: 3 views No evidence of fracture or dislocation nor abnormal soft tissue calcifications. There are mild degen erative changes in the glenohumeral and AC joints. There is a subtle permeated of pattern in the marrow of the humerus. This may indicate neoplastic di sease. IMPRESSION: Mild degenerative changes in the glenohumeral joint. Incidentally noted is somewhat permeative marrow pattern in the visualized right humerus. Correlatio n with patient's past medical history recommended. Images of the opposite-left humerus-shoulder perf ormed 02/20/2021 did not reveal similar findings in the opposite-left humerus DATA REPOSITORY: RADIATION DOSE DELIVERED:
[2024-01-13] MEDS: VANCOMYCIN/WATER (PEG) 1 GM/200 ML BAG IV ×2 (00:05→13:01)
[2024-01-13] MEDS: DOXYCYCLINE 100 MG in Normal Saline 100 ML IVPB ×2 (01:46→15:33)
[2024-01-13] MEDS: Normal Saline Flush 10 ML SYR ×4 (02:45→07:12)
[2024-01-13] MEDS: PIPERACILLIN/TAZO 3.375 GM in Normal Saline 50 ML IVPB ×4 (05:53→23:42)
[2024-01-13] MEDS: Albuterol/Ipratropium 3 ML UPD VIAL UPD ×5 (05:55→20:30)
[2024-01-13 07:12] LABS: Abs Immature Grans 0.03 10^3/uL (0.0-0.06); Absolute Basophil Count 0.03 10^3/uL (0.0-0.2); Absolute Eosinophil Count 0.03 10^3/uL (0.0-0.7); Absolute Lymphocyte Count 0.75 10^3/uL (1.2-3.4); Absolute Monocyte Count 0.63 10^3/uL (0.1-0.8); Absolute Neutrophil Count 5.78 10^3/uL (1.2-6.7); Basophils % 0.4; Eosinophils % 0.4; HGB 10.5 g/dL (13.5-17.5); Immature Grans % 0.4; Lymphocytes % 10.3; MCH 27.3 pg (27.0-33.0); MCHC 31.8 % (32.0-36.0); MCV 86 fL (80-95); Monocytes % 8.7; Neutrophils % 79.8; RBC 3.84 10^6/uL (4.36-5.78); RDW 15.6 % (11.8-14.1); RDW-SD 49.3 fL; WBC 7.25 10^3/uL (4.4-10.8)
[2024-01-13] MEDS: Ketorolac 15 MG/ML VIAL IVP (07:12)
[2024-01-13] MEDS: Magnesium Chloride 64 MG TABCR 128 MG PO ×2 (07:23→21:13)
[2024-01-13] MEDS: Protein Nutritional Supplement 16 GM 1 OUNCE PACKET PO ×3 (07:23→21:13)
[2024-01-13] MEDS: LORazepam 1 MG TAB PO ×2 (07:23→21:14)
[2024-01-13] MEDS: Mirabegron 25 MG TABCR PO (07:23)
[2024-01-13] MEDS: Acetaminophen 325 MG TAB 650 MG PO (07:23)
[2024-01-13] MEDS: Cholecalciferol (Vitamin D3) 1,000 UNIT TAB 1000 UNITS PO (07:24)
[2024-01-13] MEDS: Baclofen 10 MG TAB 20 MG PO ×3 (07:24→21:13)
[2024-01-13] MEDS: Pantoprazole 40 MG TABCR PO (07:24)
[2024-01-13] MEDS: Tamsulosin 0.4 MG CAPCR PO (07:24)
[2024-01-13] MEDS: Pregabalin 25 MG CAP PO ×3 (07:24→22:07)
[2024-01-13] MEDS: Senna TAB 4 TAB PO (07:24)
[2024-01-13] MEDS: Multivitamin TAB 1 TAB PO (07:24)
[2024-01-13] MEDS: Docusate Sodium 100 MG CAP PO ×3 (07:25→21:14)
[2024-01-13] MEDS: Ascorbic Acid 500 MG TAB 250 MG PO ×2 (07:25→21:14)
[2024-01-13] MEDS: Divalproex Sodium 500 MG TAB.ER.24H PO ×2 (07:25→21:14)
[2024-01-13 07:29] LABS: Diff Comment Diff Reviewed; Platelet Count 66 10^3/uL (130-400); RBC Morphology Normal
[2024-01-13 07:45] LABS: ALT 15 U/L (16-63); AST 26 U/L (15-37); Albumin 2.5 g/dL (3.4-5.0); Alkaline Phosphatase 53 U/L (46-116); Anion Gap 11.2 mmol/L (3-11); BUN 34 mg/dL (7-18); Bilirubin, Total 0.4 mg/dL (0.2-1.0); CO2 23.8 mmol/L (21.0-32.0); Calcium 8.7 mg/dL (8.5-10.1); Chloride 105 mmol/L (98-107); Estimated GFR 88.33 (mL/min/1.73m2); Glucose 119 mg/dL (74-106); Potassium 4.2 mmol/L (3.5-5.1); Sodium 140 mmol/L (136-145); Total Protein 6.5 g/dL (6.4-8.2)
[2024-01-13 08:25] LABS: Lab Add On Test DONE
[2024-01-13 08:40] LABS: INR 1.2 (0.9-1.1); Prothrombin Time 11.7 sec (9.1-11.1)
[2024-01-13 09:01] LABS: Ferritin 416 ng/mL (26-388)
--- NOTE | 2024-01-13 09:12 | W.PM.PROGNOT ---
Date of Service Date of service: 01/13/24 Time of Service: 09:12 Assessment and Plan Assessment and plan (1) Ureteral stone: (2) Urinary tract infection: Status: Acute Assessment and plan: His blood culture are still pending but he is improving with broad spectrum antibiotics. He is agreeable to remaining in the hospital until the final culture results are available so we can better direct his antibiotic therapy. Qualifiers: Urinary tract infection type: catheter-associated UTI Indwelling urinary catheter type: indwelling urethral catheter Encounter type: initial encounter Qualified Code(s): T83.511A - Infection and inflammatory reaction due to indwelling urethral catheter, initial encounter; N39.0 - Urinary tract infection, site not specified Subjective Subjective Interval history since last seen: He feels quite a bit better and tells me he slept through the night for the first time in months. He denies fevers or chills. He no longer has a headache Exam Narrative Exam Narrative: He does not appear septic or toxic His urine is grossly clear His mental status is back to baseline Objective Last Vital Signs Temp 38.3 C H 01/13/24 07:12 Pulse 88 01/13/24 08:29 Resp 16 01/13/24 08:29 BP 100/62 01/13/24 07:12 Pulse Ox 94 01/13/24 08:29 Laboratory Results - last 24 hr 01/13/24 01/13/24 06:54 08:15 WBC 7.25 RBC 3.84 L Hgb 10.5 L Hct 33.0 L MCV 86 MCH 27.3 MCHC 31.8 L RDW 15.6 H Plt Count 66 L MPV 11.0 Immature Gran % 0.4 Neutrophils % 79.8 Lymphocytes % 10.3 Monocytes % 8.7 Eosinophils % 0.4 Basophils % 0.4 Nucleated RBC % 0.0 Absolute Neutrophils 5.78 Absolute Lymphocytes 0.75 L Absolute Monocytes 0.63 Absolute Eosinophils 0.03 Absolute Basophils 0.03 RBC Morphology Normal PT 11.7 H INR 1.2 H APTT 31.0 Sodium 140 Potassium 4.2 Chloride 105 Carbon Dioxide 23.8 Anion Gap 11.2 H BUN 34 H Creatinine 1.0 Est GFR (CKD-EPI 2020) 88.33 Glucose 119 H Calcium 8.7 Ferritin 416 H Total Bilirubin 0.4 AST 26 ALT 15 L Alkaline Phosphatase 53 Total Protein 6.5 Albumin 2.5 L Add-On Test Request DONE Time Spent with Patient Time Spent with Patient: <25 minutes Time was spent: preparing to see the patient(eg.review tests) and other
[2024-01-13 09:14] LABS: D-Dimer 1432 ng/mlFEU (<500)
[2024-01-13 09:25] LABS: Iron 6 ug/dL (65-175); Total Iron Binding Capacity 169 ug/dL (250-450); Transferrin Sat 4 % (20-55)
[2024-01-13 10:03] LABS: Fibrinogen (Stat) (Littleton) 444 mg/dL (208-434)
[2024-01-13] MEDS: HYDROmorphone 2 MG/ML SYR 0.5 MG IVP (11:12)
--- NOTE | 2024-01-13 12:10 | PGE_ITS ---
Date of Service Date of service: 01/13/24 Time of Service: 12:10 Assessment and Plan Assessment and plan (1) Sepsis associated hypotension: Status: Acute Assessment and plan: hypotension has resolved after iv fluid resuscitation; he has not required vasopressors and so far we have not needed to move him into ICU. He has Enterococcus in his urine from urine cultures from 01/04 which was treated w/ vancomycin prior to her cystoscopy and ureteral stent and lithotripsy for nephrolithiasis which was causing hydronephrosis. However, he now has gram positive cocci bacteremia; possibly also Enterococcus. he remains on Vancomcyin and Zosyn. Vancomycin trough is pending. he also has pneumonia LLL and is on bronchodilators along w/ the above antibiotics. Fluvid swab was negative , urine strep and legionella antigen testing is pending. I have him on doxycycline as well for coverage of atypical organisms. I have ordered echocardiogram to evaluate for valvular abnormalities, s pecifically looking for vegetations. Repeat blood cultures are currently pending from today, which were drawn from his port. Midline has been placed today in his right arm 4 Occitan dual lumen. Professional time spent interviewing and examining patient, discussion of goals of care with hospital team (care management, nursing and consulting professionals) was 40 minutes. (2) Bacteremia due to Gram-positive bacteria: Start date: 01/13/24 Start time: 12:24 Status: Acute Assessment and plan: as above (3) Urinary tract infection: Status: Acute Assessment and plan: as above, s/p cystoscopy w/ right ureteral stone removal and stent placement after holium lithotripsy. Qualifiers: Urinary tract infection type: catheter-associated UTI Indwelling urinary catheter type: indwelling urethral catheter Encounter type: initial encounter Qualified Code(s): T83.511A - Infection and inflammatory reaction due to indwelling urethral catheter, initial encounter; N39.0 - Urinary tract infection, site not specified (4) Left lower lobe pneumonia: Status: Acute Assessment and plan: as above, good pulmonary toiletry, IS, acapella Qualifiers: Pneumonia type: due to unspecified organism Qualified Code(s): J18.9 - Pneumonia, unspecified organism (5) Right shoulder pain: Status: Acute Assessment and plan: patient has voltaren gel and prn hydromorphone. I think I will try him on scheduled tylenol and add prn tramadol; check shoulder xray; if not improving then will get orthopedic evaluation Qualifiers: Chronicity: acute Qualified Code(s): M25.511 - Pain in right shoulder (6) IV infiltrate: Status: Acute Assessment and plan: apply heat, elevation, compresson to left hand/forearm, monitor for any signs of cellulitis although he is already on antibiotics. Qualifiers: Encounter type: initial encounter Qualified Code(s): T80.1XXA - Vascular complications following infusion, transfusion and therapeutic injection, initial encounter Subjective Subjective Interval history since last seen: Favio states that his right shoulder is painful at the humerus head. he also has complaints of left arm aching. He says that when his daughter visited him she helped pull him up and he thinks that she did not properly lift him. Dyspnea and cough are better today. I told Favio that unfortunately his blood cultures are now growing gram positive cocci. He may have an infected port. I will check echocardiogram to look for vegetations. He is currently on vancomycin and Zosyn. Repeat blood cultures are pending. Exam Narrative Exam Narrative: Favio is sleep, he was medicated w/hydromorphone for his shoulder pain prior to my visit. The PICC line nurse, Navin, was just here to put in a midline for better iv access. Apparently Favio had an iv in the left forearm which became infilatrated and was removed. Favio awakens when I call his name and he answers me appropriately, he denies dyspnea or CP at this time but complains of left arm aching and right shoulder humeral head is tender to any ROM Right shoulder head appears swollen, no redness, but tenderness w/ palpation or w/ ROM Left shoulder is nontender to palpation, left humerus does not appear swollen and is nontender to palpation; distal left forearm and hand appear to be slightly swollen w/ some mild redness over the dorsal surface Lungs: clearer this morning; no rhonchi or rales or wheezing Heart: RRR, no murmur or rub Abdomen: nondistended, soft, nontender Objective Last Vital Signs Temp 38.0 C H 01/13/24 10:28 Pulse 88 01/13/24 08:29 Resp 16 01/13/24 08:29 BP 100/62 01/13/24 07:12 Pulse Ox 94 01/13/24 08:29 Laboratory Results - last 24 hr 01/13/24 01/13/24 06:54 08:15 WBC 7.25 RBC 3.84 L Hgb 10.5 L Hct 33.0 L MCV 86 MCH 27.3 MCHC 31.8 L RDW 15.6 H Plt Count 66 L MPV 11.0 Immature Gran % 0.4 Neutrophils % 79.8 Lymphocytes % 10.3 Monocytes % 8.7 Eosinophils % 0.4 Basophils % 0.4 Nucleated RBC % 0.0 Absolute Neutrophils 5.78 Absolute Lymphocytes 0.75 L Absolute Monocytes 0.63 Absolute Eosinophils 0.03 Absolute Basophils 0.03 RBC Morphology Normal PT 11.7 H INR 1.2 H APTT 31.0 Fibrinogen 444 H D-Dimer 1432 H Sodium 140 Potassium 4.2 Chloride 105 Carbon Dioxide 23.8 Anion Gap 11.2 H BUN 34 H Creatinine 1.0 Est GFR (CKD-EPI 2020) 88.33 Glucose 119 H Calcium 8.7 Iron 6 L TIBC 169 L Transferrin % Sat 4 L Ferritin 416 H Total Bilirubin 0.4 AST 26 ALT 15 L Alkaline Phosphatase 53 Total Protein 6.5 Albumin 2.5 L Add-On Test Request DONE Time Spent with Patient Time Spent with Patient: 35-49 minutes Time was spent: preparing to see the patient(eg.review tests), ordering medications,tests, procedures, referring, communicating with other health residential care facility manager, indepentently interpreting results, counseling the patient and care coordination
--- NOTE | 2024-01-13 12:15 | RT.EKG_ITS ---
APPROVED REPORT Exam: Resting ECG Reason for Exam: atypical CP Patient Location: I HR:92 bpm ECG Measurements Heart Rate 92 AXIS VT 157 P 69 QRSd 107 QRS 17 QT 342 T 32 QTc 424 Conclusion Sinus rhythm...normal P axis, V-rate 50- 99 RSR' in V1 or V2
--- NOTE | 2024-01-13 13:32 | DI.US_ITS ---
Exam(s) US EXTREMITY VENOUS BI EXAM: US EXTREMITY VENOUS BI CLINICAL HISTORY: elevated d-dimer; dyspnea. TECHNIQUE: Bilateral lower extremity venous ultrasound performed using grayscale, color-flow, and sp ectral Doppler analysis. COMPARISON: US US EXTREMITY VENOUS BI from 07/03/2021 FINDINGS: The right common femoral, femoral and popliteal veins demonstrate normal compressibility, augmentatio n, and color Doppler. The posterior tibial veins could not be visualized. The saphenofemoral junctio n is unremarkable. There is no evidence of a Downs's cyst. The soft tissues are unremarkable. The left common femoral, femoral and popliteal veins demonstrate normal compressibility, augmentation , and color Doppler. The posterior tibial veins could not be visualized. The saphenofemoral junction is unremarkable. There is no evidence of a Dwons's cyst. The soft tissues are unremarkable. IMPRESSION: 1. No evidence of a right lower extremity DVT. 2. No evidence of a left lower extremity DVT. DATA REPOSITORY:
[2024-01-13] MEDS: Lactated Ringers 1,000 ML 125 ML IV (13:42)
[2024-01-13] MEDS: Omnipaque 350 MG/ML 100 ML BTL IJ (13:53)
[2024-01-13] MEDS: Normal Saline - Diluent 50 ML VIAL IJ (13:54)
[2024-01-13] MEDS: Acetaminophen 325 MG TAB 1000 MG PO (15:30)
--- NOTE | 2024-01-13 16:23 | CHAPLAIN ---
Favio was very tired when I visited. I'll try again tomorrow. Favio is a quadriplegic. He was hospitalized here for several months at one point, so many staff know him well. He lives in a snf in [place] with home providers.
--- NOTE | 2024-01-13 17:30 | PDOC.CMPRO ---
Care Management Progress Note Progress Note Text Progress Note Text: S/O: Favio was lying in bed, eyes closed-multiple staff entered room to provide personal care. CM spoke with daughter Luz, reviewing her concerns, providing education central to insurance limitations and C/AFC. Per report (Palliative and Nicki) Luz has not been fully engaged with Favio in sometime, however she presented as well informed on Favio's care needs within his [facility] home and concerns around Favio refusing personal care from his [facility] home providers; in line with previous presentation. Luz text Nicki who stated Favio's [facility] CM is Brook Grover at [facility]. Luz also expressed wanting to limit Favio's visitors to immediate family due to his exhaustion and anxiety; CM reviewed patient rights, process, procedure and explained Favio would have to verbally request limit in visitation, but [facility] would of course accommodate his wishes. Favio stirred in bed, briefly fluttered his eyes open and made some sound, but did not engage during CM visit. CM continues to follow. A: 58 year old admitted to [facility] 01/11/24 for ureteral stone P: Favio will discharge to [facility] home provider (Jovanny You, ) with a resumption of VNA services (possible increase) when medically cleared by provider. He will follow up with his PCP, community providers and plan of care as instructed. Anticipate he will transport via EMS or W/C van. CM following.
[2024-01-13] MEDS: Diclofenac 1% Gel 100 GM TUBE TP ×2 (18:08→22:07)
[2024-01-13] MEDS: Normal Saline Flush 10 ML SYR IVP ×2 (21:15→23:42)
[2024-01-13] MEDS: QUEtiapine 100 MG TAB PO (21:21)
[2024-01-13] MEDS: Acetaminophen 500 MG TAB 1000 MG PO (21:21)
[2024-01-13 23:57] LABS: Vancomycin, Trough 20.5 ug/mL (10.0-20.0)
[2024-01-14] VITALS (14 sets, daily range): BP systolic 143–161; BP diastolic 81–90; PULSE 73–92; RESP 2–20; TEMP 36.2–38.1; O2SAT 95–97
[2024-01-14] MEDS: DOXYCYCLINE 100 MG in Normal Saline 100 ML IVPB ×2 (01:44→15:21)
[2024-01-14] MEDS: Ketorolac 15 MG/ML VIAL IVP ×2 (02:23→11:50)
[2024-01-14] MEDS: traMADol 50 MG TAB PO (02:24)
[2024-01-14] MEDS: Lactated Ringers 1,000 ML 75 ML IV (04:20)
[2024-01-14] MEDS: PIPERACILLIN/TAZO 3.375 GM in Normal Saline 50 ML IVPB ×2 (05:30→13:54)
[2024-01-14] MEDS: VANCOMYCIN 1,250 MG in Normal Saline 250 ML 166.667 MG IVPB (06:55)
[2024-01-14] MEDS: Albuterol/Ipratropium 3 ML UPD VIAL UPD ×4 (08:15→20:16)
[2024-01-14] MEDS: Tamsulosin 0.4 MG CAPCR PO (08:30)
[2024-01-14] MEDS: Cholecalciferol (Vitamin D3) 1,000 UNIT TAB 1000 UNITS PO (08:30)
[2024-01-14] MEDS: Pantoprazole 40 MG TABCR PO (08:30)
[2024-01-14] MEDS: Divalproex Sodium 500 MG TAB.ER.24H PO ×2 (08:30→20:08)
[2024-01-14] MEDS: Magnesium Chloride 64 MG TABCR 128 MG PO ×2 (08:30→20:07)
[2024-01-14] MEDS: Baclofen 10 MG TAB 20 MG PO ×3 (08:30→20:08)
[2024-01-14] MEDS: Protein Nutritional Supplement 16 GM 1 OUNCE PACKET PO ×3 (08:30→20:07)
[2024-01-14] MEDS: Mirabegron 25 MG TABCR PO (08:30)
[2024-01-14] MEDS: Acetaminophen 500 MG TAB 1000 MG PO ×4 (08:30→20:10)
[2024-01-14] MEDS: Ascorbic Acid 500 MG TAB 250 MG PO ×2 (08:30→20:10)
[2024-01-14] MEDS: LORazepam 1 MG TAB PO ×3 (08:30→20:09)
[2024-01-14] MEDS: Multivitamin TAB 1 TAB PO (08:30)
[2024-01-14] MEDS: Docusate Sodium 100 MG CAP PO ×3 (08:30→20:09)
[2024-01-14] MEDS: Senna TAB 4 TAB PO (08:30)
[2024-01-14] MEDS: Pregabalin 25 MG CAP PO ×3 (08:30→20:07)
[2024-01-14 09:32] LABS: ALT 18 U/L (16-63); AST 20 U/L (15-37); Albumin 2.2 g/dL (3.4-5.0); Alkaline Phosphatase 45 U/L (46-116); Anion Gap 8.4 mmol/L (3-11); BUN 29 mg/dL (7-18); Bilirubin, Total 0.4 mg/dL (0.2-1.0); CO2 26.6 mmol/L (21.0-32.0); CREATININE 0.9 mg/dL (0.70-1.30); Calcium 8.3 mg/dL (8.5-10.1); Chloride 108 mmol/L (98-107); Estimated GFR 100.24 (mL/min/1.73m2); Glucose 83 mg/dL (74-106); Sodium 143 mmol/L (136-145); Total Protein 5.9 g/dL (6.4-8.2)
--- NOTE | 2024-01-14 09:34 | DI.US_ITS ---
APPROVED REPORT EXAM: Comprehensive 2D, Doppler, and color-flow Echocardiogram Patient Location: In-Patient Room/Bed: 219 Home Care Administrator: Inna Richardson RDCS (AE) Indications: Gram positive cocci bactermia Other Information Study Quality: Fair. Technically limited study due to body habitus, inability to position patient exa m done siupine bedside. Conclusion Normal left ventricular wall thickness and chamber size. EF is 55%. Wall motion is normal Grossly normal right ventricular size and function Both atria are normal in size There is no structural or hemodynamically significant valvular disease No valvular vegetation is identified Wall motion Left Ventricle The left ventricle is normal size. The left ventricular systolic function is normal. The left ventric ular ejection fraction is within the normal range. There is normal left ventricular wall thickness. T here is normal LV segmental wall motion. There is no ventricular septal defect visualized. LVEF is 55 %. Right Ventricle The right ventricle is normal size. The right ventricular systolic function is normal. Atria The left atrium size is normal. The right atrium size is normal. Aortic Valve The aortic valve is normal in structure. Aortic valve is trileaflet. There is no aortic valvular sten osis. No aortic regurgitation is present. Mitral Valve The mitral valve is normal in structure. No evidence of mitral valve stenosis. Trace mitral regurgita tion. Tricuspid Valve The tricuspid valve is normal in structure. There is no tricuspid valve stenosis. Trace tricuspid reg urgitation. Unable to assess PA pressure. Pulmonic Valve Pulmonic valve is not well visualized. There is no pulmonic valvular stenosis. There is no pulmonic v alvular regurgitation. Great Vessels The aortic root is normal in size. IVC is normal in size and collapses >50% with inspiration. Pericardium There is no pericardial effusion. 2D Dimensions IVSD d PLAX 1.03 cm M: 0.6-1.2 Ao Root d 3.34 cm M: 3.1 - 3.7 LVPW d PLAX 1.00 cm M: 0.6 - 1.2 LVID d PLAX 5.03 cm M: 4.2 - 5.8 LVDs 3.54 cm M: 2.5 - 4.0 LV EF Teichholz 56.4 % FS 29.61 % LV EDV (Teich) 120.2 mL LV ESV (Teich) 52.4 mL M-Mode TAPSE 2.75 cm (M/F) >1.7 Auto EF LV EDV A4C 120.3 mL LV EDV A2C 114.8 mL LV EDV BP 119.2 mL LV ESV A4C 54.6 mL LV ESV A2C 52.8 mL LV ESV BP 53.6 mL LVEF(%) A4C 54.6 % LVEF(%) A2C 54.0 % LVEF(%) BP 55.0 % LV SV A4C 65.7 ml LV SV A2C 62.0 ml LV SV BP 65.6 ml LV CO A4C 5.7 L/min LV CO A2C 5.3 L/min LV CO BP 5.5 L/min HR A4C 86.50 BPM HR A2C 85.72 BPM LV EDV Index (BP) LV Diastology MV E' medial 0.097 (>0.07 m/s) MV E Vmax 0.91 (0.4-1.3 m/s) MV E/E' MED 9.41 (<14) MV A Vmax 0.85 (0.4-1.3 m/s) MV E' lateral 0.103 (>0.1 m/s) E/A Ratio 1.1 MV E/E' LAT 8.91 (<14) MV E' Average 0.100 m/s MV E/E'(average) 9.15 Aortic Valve AoV Vmax 1.50 m/s LVOT Vmax 1.23 m/s AoV Peak Grad 9.0 mmHg LVOT Peak Grad 6.0 mmHg AoV Area (Vmax) 2.27 cm2 LVOT VTI 0.237 m AoV VTI 0.300 m LVOT Mean Grad 3.7 mmHg AoV Mean Db. 1.09 m/s LVOT SV 65.89 mL AoV Mean Grad 5.5 mmHg LVOT Diam s 1.85 cm AoV Area (VTI) 2.20 cm2 Velocity Ratio 0.82 Mitral Valve MV DT 194 (160-240 msec) MV Vmax TIPS 0.96 m/s MV Mean Grad 2.1 (<2mmHg) MV VTI 0.267 m Pulmonary Valve PV Vmax 1.02 (0.5-1.5 m/s) PV Peak Grad 4.2 mmHg PV Mean Db 0.81 m/s PV Mean Grad 2.9 mmHg Tricuspid Valve TV S' 0.16 m/s
[2024-01-14 09:40] LABS: Procalcitonin 0.3 ng/mL
[2024-01-14] MEDS: Diclofenac 1% Gel 100 GM TUBE TP ×5 (10:00→20:10)
[2024-01-14 10:13] LABS: HCT 27.9 % (40.0-50.0); HGB 8.9 g/dL (13.5-17.5); MCV 87 fL (80-95); RBC 3.21 10^6/uL (4.36-5.78); WBC 6.32 10^3/uL (4.4-10.8)
[2024-01-14 10:14] LABS: Abs Immature Grans 0.02 10^3/uL (0.0-0.06); Absolute Basophil Count 0.03 10^3/uL (0.0-0.2); Absolute Eosinophil Count 0.28 10^3/uL (0.0-0.7); Absolute Lymphocyte Count 0.89 10^3/uL (1.2-3.4); Absolute Monocyte Count 0.66 10^3/uL (0.1-0.8); Absolute Neutrophil Count 4.44 10^3/uL (1.2-6.7); Basophils % 0.5; Eosinophils % 4.4; Immature Grans % 0.3; Lymphocytes % 14.1; MCH 27.7 pg (27.0-33.0); MCHC 31.9 % (32.0-36.0); MPV 11.4 fL (8.0-11.0); Monocytes % 10.4; Neutrophils % 70.3; RDW 15.4 % (11.8-14.1); RDW-SD 49.6 fL
[2024-01-14 10:15] LABS: Diff Comment Diff Reviewed
[2024-01-14 10:16] LABS: Platelet Count 96 10^3/uL (130-400)
--- NOTE | 2024-01-14 11:45 | W.PALLCONSUL ---
Date of service: 01/14/24 Time of Service: 09:15 History of Present Illness History of Present Illness Chief Complaint: did not feel well Narrative: From H and P History of Present Illness History of Present Illness Chief Complaint: Right ureteral stone Narrative: This is a 58-year-old gentleman who has a history of a neurogenic bladder. He has an indwelling suprapubic tube. He had a recent hospitalization for sepsis. He is found to have right hydronephrosis from an obstructing right proximal ureteral stone. He was treated with a stent placement. Following the stent placement, he was hospitalized with prolonged hypoxia. No significant respiratory pathology was identified, but he was then readmitted to our hospital with a COVID infection. He has since recovered from the Covid infection. He has had recurrent episodes of catheter occlusion requiring ED visits. His most recent urine culture grew Enterococcus sensitive to Vanco and Daptomycin. Previous cultures have grown Pseudomonas and Klebsiella. INTERIM HX I am seeing Favio as his palliative doctor. I have had a long relationship with Favio since his injury which led to his quadriplegia. He has had frequent UTIs, has stents placed, and has had admissions due to sepsis etc. this admission he had a ureteral stone managed by Dr. Molina. He is presently on doxycycline and vancomycin. He is receiving fluids. He states that he slept quite well the last 2 nights. This is unusual for him. He feels wiped out and exhausted. He also is worried about some of the things that he is seeing. He wakes up from his sleeping and he will find himself petting a cat. He knows that there is no cat there. Sometimes he looks quickly and sees a cat or other objects. He does not feel like he is hallucinating but is definitely seeing things that are not there. He is tired about the [place] of being in the hospital, out of the hospital, in the hospital, out of the hospital. Assessment and Plan Assessment and plan (1) Advance care planning: Status: Acute (2) Urinary tract infection: Status: Acute Qualifiers: Urinary tract infection type: catheter-associated UTI Indwelling urinary catheter type: indwelling urethral catheter Encounter type: initial encounter Qualified Code(s): T83.511A - Infection and inflammatory reaction due to indwelling urethral catheter, initial encounter; N39.0 - Urinary tract infection, site not specified (3) Decubitus skin ulcer: Status: Acute Qualifiers: Pressure injury location: buttock Pressure injury stage: unstageable Laterality: unspecified laterality Qualified Code(s): L89.300 - Pressure ulcer of unspecified buttock, unstageable (4) Quadriplegia: Status: Chronic (5) Left lower lobe pneumonia: Status: Acute Assessment and plan: Favio is getting excellent care through Dr. Molina. He he is on Vanco and Doxy. Most recent blood cultures from yesterday show no growth after 24 hours. This is reassuring. There is significant urine in the bag. It is normal color. Hopefully his urology issues are resolving Question about pneumonia. He is on Doxy Shoulder pain?there has been a problem with his shoulders for quite some time. This will show some marrow changes in the x-ray. Will wait to see what next steps are I did contact Dr. Molina and more importantly spoke with Favio. He is very clear he wants to be DNR DNI. His CODE STATUS has been changed Regarding ED?this is an outpatient issue but I have sent in referral to [facility] for possible penile prosthesis per patient's request I will continue to follow him outpatient Qualifiers: Pneumonia type: due to unspecified organism Qualified Code(s): J18.9 - Pneumonia, unspecified organism Review of Systems Narrative: Today he feels very tired. He is seeing things that are not there. He knows that they are not there, but but does not know how to stop from seeing them. PFSH All Active Problems (Updated 01/14/24 @ 12:44 by Scarlett Zhu MD, [place]) Advance care planning (Acute) Erectile disorder (Acute) IV infiltrate (Acute) Right shoulder pain (Acute) Bacteremia due to Gram-positive bacteria (Acute) Left lower lobe pneumonia (Acute) Sepsis associated hypotension (Acute) Urinary tract infection (Acute) Abrasion of foot, right (Acute) History of UTI (Acute) Neck pain (Acute) Chronic recurrent multifocal osteomyelitis (Chronic) Constipation due to neurogenic bowel (Acute) Palliative care patient (Acute) Acute osteomyelitis of sacrum (Chronic) Decubitus skin ulcer (Acute) Major depressive disorder (Chronic) Quadriplegia (Chronic) Medical History Muscle spasm Bladder stones Bronchospasm Insomnia Weight gain DIAMOND (acute kidney injury) Low magnesium level Open wound of abdominal wall Encounter for wound care Visit for wound check Right arm pain Malnutrition following gastrointestinal surgery Large bowel obstruction Iron deficiency anemia Hypokalemia Aspiration into airway Ileus Neurogenic bowel Physician orders for life-sustaining treatment (POLST) form indicates patient wish for [id number] status DNR (do not resuscitate) Decubitus ulcer of buttock, stage 4 H/O deep venous thrombosis DVT (deep venous thrombosis) DVT prophylaxis Constipation Fall down embankment Hypotension Acute embolism and thrombosis of deep vein of right lower extremity Fusion of spine Dislocation of C6/C7 cervical vertebrae C. difficile colitis Surgical History History of infusaport central venous catheter insertion Suprapubic catheter S/P colostomy Social History (System 11/19/23 @ 12:49 by Naomi Devine) Smoking/Tobacco Use Status: Never Smoking risk assessment performed?: Yes Alcohol Intake: current Alcohol Intake frequency: holidays/special occasions only Substance use type: does not use Housing: house Do you feel safe at home: Yes Do you feel safe in your relationship?: Yes Exam Narrative Exam Narrative: Favio looks not out of it but really exhausted and tired. I am used to him being more energetic and having more of a sparkle in his eye. His heart is regular. His lungs pretty good aeration. Please note I did not sit him up. Abdomen good bowel sounds. Wound to the right of his colostomy and umbilicus is looking much better than it was when I saw him at home about 10 days ago. I did not look at his sacral wounds. His feet were wrapped in socks. There was not edema. They are in protective booties. Mood there was some apathy about him. Results Last Vital Signs Temp 98.8 F 01/14/24 08:30 Pulse 92 H 01/14/24 11:35 Resp 18 01/14/24 11:35 BP 161/88 H 01/14/24 08:30 Pulse Ox 96 01/14/24 11:35 echo today Conclusion Normal left ventricular wall thickness and chamber size. EF is 55%. Wall motion is normal Grossly normal right ventricular size and function Both atria are normal in size There is no structural or hemodynamically significant valvular disease No valvular vegetation is identified CT Chest IMPRESSION: 1. Within the limits of the examination no pulmonary embolism is seen. 2. Bilateral small pleural effusions and subjacent infiltrates which may represent atelectasis or pneumonia. US - no DVT Labs 01/14/24 06:16 01/14/24 06:16 Labs: Laboratory Results - last 24 hr 01/13/24 01/14/24 23:25 06:16 WBC 6.32 RBC 3.21 L Hgb 8.9 L Hct 27.9 L MCV 87 MCH 27.7 MCHC 31.9 L RDW 15.4 H Plt Count 96 L MPV 11.4 H Immature Gran % 0.3 Neutrophils % 70.3 Lymphocytes % 14.1 Monocytes % 10.4 Eosinophils % 4.4 Basophils % 0.5 Nucleated RBC % 0.0 Absolute Neutrophils 4.44 Absolute Lymphocytes 0.89 L Absolute Monocytes 0.66 Absolute Eosinophils 0.28 Absolute Basophils 0.03 Sodium 143 Potassium 4.0 Chloride 108 H Carbon Dioxide 26.6 Anion Gap 8.4 BUN 29 H Creatinine 0.9 Est GFR (CKD-EPI 2020) 100.24 Glucose 83 Calcium 8.3 L Total Bilirubin 0.4 AST 20 ALT 18 Alkaline Phosphatase 45 L Total Protein 5.9 L Albumin 2.2 L Procalcitonin 0.3 Vancomycin Trough 20.5 H*
--- NOTE | 2024-01-14 12:10 | NUR.NOTE ---
Pt has is c/o left arm pain, provider notes state to elevate, compress and use heat. Pt got beligerent when discussed with him and placed left arm on pillow. Will reassess in an hour. Nursing Note:
--- NOTE | 2024-01-14 13:27 | PGE_ITS ---
Date of Service Date of service: 01/14/24 Time of Service: 13:27 Assessment and Plan Assessment and plan (1) Sepsis associated hypotension: Status: Acute Assessment and plan: Favio's repeat blood cultures coming back no growth. Initial urine culture prior to his cystoscopy was Enterococcus and this is what grew on one of two initial blood cultures. Now that he is clearing the bacteremia we can consider switching to oral treatment upon discharge. I think Zyvox would be a good choice. I did a cross check of all his home meds and the only red flags is his trazodone will in teract w/ the Zyvox. However, if he can come off this now, and take something else for sleep (unless he is taking this for depression as well) then he could go on the Zyvox for 10 more days. I have asked pharmacy to look into the feasibility of abruptly stopping his trazodone and how long he would have to be off this before going on Zyvox. Professional time spent interviewing and examining patient, discussion of goals of care with hospital team (care management, nursing and consulting professionals) was 45 minutes. (2) Bacteremia due to Gram-positive bacteria: Start date: 01/13/24 Start time: 12:24 Status: Acute Assessment and plan: as above, cultures positive for Enterococcus. No vegetations or valvulopathy on his echo. Patient nees 14 days of treatment. hopefully can switch to Zyvox. (3) Urinary tract infection: Status: Acute Assessment and plan: as above, s/p cystoscopy w/ right ureteral stone removal and stent placement after holium lithotripsy. Qualifiers: Urinary tract infection type: catheter-associated UTI Indwelling urinary catheter type: indwelling urethral catheter Encounter type: initial encounter Qualified Code(s): T83.511A - Infection and inflammatory reaction due to indwelling urethral catheter, initial encounter; N39.0 - Urinary tract infection, site not specified (4) Left lower lobe pneumonia: Status: Acute Assessment and plan: as above, good pulmonary toiletry, IS, acapella, clinically he is not producing any sputum and he is not requiring oxygen supplementation. CT chest Qualifiers: Pneumonia type: due to unspecified organism Qualified Code(s): J18.9 - Pneumonia, unspecified organism (5) Right shoulder pain: Status: Acute Assessment and plan: patient has voltaren gel and prn hydromorphone. I think I will try him on scheduled tylenol and add prn tramadol; check shoulder xray; if not improving then will get orthopedic evaluation Qualifiers: Chronicity: acute Qualified Code(s): M25.511 - Pain in right shoulder (6) IV infiltrate: Status: Acute Assessment and plan: apply heat, elevation, compresson to left hand/forearm, monitor for any signs of cellulitis although he is already on antibiotics. Qualifiers: Encounter type: initial encounter Qualified Code(s): T80.1XXA - Vascular complications following infusion, transfusion and therapeutic injection, initial encounter Subjective Subjective Interval history since last seen: Favio has no new concerns. As for his shoulder pains, they come and go. Currently pain is controlled. I went over his xrays and echo w/ him and his daughter. Right shoulder xray showed DJD but no dislocation or fracture. Echo was normal w/ no vegetations or valvulopathy. His repeat blood cultures are coming back no growth and his original blood culture grew Enterococcus which is what was in his urine. He is on vancomycin and zosyn but I think at this point we can de-escalate to just vancomycin. As he is now improving from his bacteremia, I think he can transition to oral Zyvox and complete another 11 to 12 days of oral antibiotics (total of 14 days). Exam Narrative Exam Narrative: Favio is sleepy this morning but he does awaken and answer appropriately Lungs: clear Heart: RRR Abdomen: soft, nontender, he has a superficial wound over his abdomen that is not purulent. Mepilex has been applied Sacrum: bilateral ischial wounds that are not draining pus. See nursing notes regarding size/depth SPC draining clear yellow urine right arm edema is less, erythema is resolving Objective Last Vital Signs Temp 37.1 C 01/14/24 08:30 Pulse 92 H 01/14/24 11:35 Resp 18 01/14/24 11:35 BP 161/88 H 01/14/24 08:30 Pulse Ox 96 01/14/24 11:35 Laboratory Results - last 24 hr 01/13/24 01/14/24 23:25 06:16 WBC 6.32 RBC 3.21 L Hgb 8.9 L Hct 27.9 L MCV 87 MCH 27.7 MCHC 31.9 L RDW 15.4 H Plt Count 96 L MPV 11.4 H Immature Gran % 0.3 Neutrophils % 70.3 Lymphocytes % 14.1 Monocytes % 10.4 Eosinophils % 4.4 Basophils % 0.5 Nucleated RBC % 0.0 Absolute Neutrophils 4.44 Absolute Lymphocytes 0.89 L Absolute Monocytes 0.66 Absolute Eosinophils 0.28 Absolute Basophils 0.03 Sodium 143 Potassium 4.0 Chloride 108 H Carbon Dioxide 26.6 Anion Gap 8.4 BUN 29 H Creatinine 0.9 Est GFR (CKD-EPI 2020) 100.24 Glucose 83 Calcium 8.3 L Total Bilirubin 0.4 AST 20 ALT 18 Alkaline Phosphatase 45 L Total Protein 5.9 L Albumin 2.2 L Procalcitonin 0.3 Vancomycin Trough 20.5 H* Time Spent with Patient Time Spent with Patient: 35-49 minutes Time was spent: preparing to see the patient(eg.review tests), ordering medi cations,tests, procedures, referring, communicating with other health home care and home health aides teacher, indepentently interpreting results, counseling the patient and care coordination
--- NOTE | 2024-01-14 15:48 | PGE_ITS ---
Date of Service Date of service: 01/14/24 Time of Service: 15:48 Assessment and Plan Assessment and plan (1) Bacteremia due to Gram-positive bacteria: Status: Acute (2) Ureteral stone: Assessment and plan: With the positive blood culture, we have confirmed a urinary tract source of his sepsis. He is on appropriate antibiotics, so hopefully his clinical picture will improve with time. I did identify a bladder stone which may have been contributing to his frequent catheter occlusions. I am hopeful that we will have longer times between catheter changes now that the bladder stone has been removed. Subjective Subjective Interval history since last seen: His chills have decreased but he is now quite fatigued. Exam Narrative Exam Narrative: He does not appear septic or toxic but appears more washed out His urine is grossly clear His stone analysis is still pending One of his blood cultures grew Enterococcus (same organism that was present in urinary tract preop) Objective Last Vital Signs Temp 36.3 C L 01/14/24 15:06 Pulse 90 01/14/24 15:47 Resp 18 01/14/24 15:47 BP 143/81 H 01/14/24 15:06 Pulse Ox 97 01/14/24 15:47 Laboratory Results - last 24 hr 01/13/24 01/14/24 01/14/24 23:25 06:16 23:30 WBC 6.32 RBC 3.21 L Hgb 8.9 L Hct 27.9 L MCV 87 MCH 27.7 MCHC 31.9 L RDW 15.4 H Plt Count 96 L MPV 11.4 H Immature Gran % 0.3 Neutrophils % 70.3 Lymphocytes % 14.1 Monocytes % 10.4 Eosinophils % 4.4 Basophils % 0.5 Nucleated RBC % 0.0 Absolute Neutrophils 4.44 Absolute Lymphocytes 0.89 L Absolute Monocytes 0.66 Absolute Eosinophils 0.28 Absolute Basophils 0.03 Sodium 143 Potassium 4.0 Chloride 108 H Carbon Dioxide 26.6 Anion Gap 8.4 BUN 29 H Creatinine 0.9 Est GFR (CKD-EPI 2020) 100.24 Glucose 83 Calcium 8.3 L Total Bilirubin 0.4 AST 20 ALT 18 Alkaline Phosphatase 45 L Total Protein 5.9 L Albumin 2.2 L Procalcitonin 0.3 Vancomycin Trough 20.5 H* Cancelled Time Spent with Patient Time Spent with Patient: <25 minutes Time was spent: preparing to see the patient(eg.review tests), obtaining and/or reviewing separately otained hiistory and referring, communicating with other health attending ambulatory care
--- NOTE | 2024-01-14 16:24 | CHAPLAIN ---
I've tried to visit Favio yesterday and today, a couple of attempts each day. He's been very tired and not really alert enough for a visit. I'll try again tomorrow. A year or so ago, Favio was a patient her for several months while waiting to go to a community snf, so some [facility] staff are very familiar with him.
[2024-01-14 20:35] LABS: Legionella Ag Detection Urine Negative (Negative)
[2024-01-14 21:47] LABS: HIT ELISA <0.050 OD (<0.400); HIT Interpretation Negative (Negative)
[2024-01-14] MEDS: QUEtiapine 100 MG TAB PO (21:58)
[2024-01-14] MEDS: traZODone 50 MG TAB PO (21:59)
[2024-01-14] MEDS: HYDROmorphone 2 MG/ML SYR 0.5 MG IVP (22:18)
[2024-01-14 23:38] LABS: Source: Kidney
[2024-01-14] MEDS: Normal Saline Flush 10 ML SYR IVP (23:55)
[2024-01-14] MEDS: VANCOMYCIN/WATER (PEG) 1.25 GM/250 ML BAG IV (23:55)
[2024-01-15] VITALS (7 sets, daily range): BP systolic 156–168; BP diastolic 73–93; PULSE 74–84; RESP 2–18; TEMP 35.5–36.4; O2SAT 97–99
[2024-01-15] MEDS: DOXYCYCLINE 100 MG in Normal Saline 100 ML IVPB ×2 (01:32→14:48)
[2024-01-15] MEDS: HYDROmorphone 2 MG/ML SYR 0.5 MG IVP ×4 (04:58→23:00)
[2024-01-15] MEDS: Normal Saline Flush 10 ML SYR IVP ×5 (04:58→23:01)
[2024-01-15] MEDS: Albuterol/Ipratropium 3 ML UPD VIAL UPD ×2 (07:47→20:25)
[2024-01-15 08:26] LABS: Abs Immature Grans 0.01 10^3/uL (0.0-0.06); Absolute Basophil Count 0.02 10^3/uL (0.0-0.2); Absolute Lymphocyte Count 1.02 10^3/uL (1.2-3.4); Absolute Monocyte Count 0.39 10^3/uL (0.1-0.8); Absolute Neutrophil Count 2.84 10^3/uL (1.2-6.7); Basophils % 0.4; Eosinophils % 8.5; HCT 28.1 % (40.0-50.0); HGB 8.8 g/dL (13.5-17.5); Immature Grans % 0.2; Lymphocytes % 21.8; MCH 27.8 pg (27.0-33.0); MCHC 31.3 % (32.0-36.0); MCV 89 fL (80-95); MPV 10.9 fL (8.0-11.0); Monocytes % 8.3; Neutrophils % 60.8; Platelet Count 103 10^3/uL (130-400); RBC 3.16 10^6/uL (4.36-5.78); RDW 14.9 % (11.8-14.1); RDW-SD 49.4 fL; WBC 4.68 10^3/uL (4.4-10.8)
[2024-01-15 08:43] LABS: ALT 16 U/L (16-63); AST 13 U/L (15-37); Albumin 2.1 g/dL (3.4-5.0); Alkaline Phosphatase 47 U/L (46-116); Anion Gap 8.1 mmol/L (3-11); BUN 28 mg/dL (7-18); Bilirubin, Total 0.3 mg/dL (0.2-1.0); C-Reactive Protein 15.87 mg/dL (<or=0.5); CO2 25.9 mmol/L (21.0-32.0); CREATININE 0.7 mg/dL (0.70-1.30); Calcium 8.4 mg/dL (8.5-10.1); Chloride 110 mmol/L (98-107); Estimated GFR 108.14 (mL/min/1.73m2); Glucose 81 mg/dL (74-106); Sodium 144 mmol/L (136-145); Total Protein 5.9 g/dL (6.4-8.2)
[2024-01-15] MEDS: Magnesium Chloride 64 MG TABCR 128 MG PO ×2 (09:40→20:14)
[2024-01-15] MEDS: Docusate Sodium 100 MG CAP PO ×3 (09:41→20:15)
[2024-01-15] MEDS: Cholecalciferol (Vitamin D3) 1,000 UNIT TAB 1000 UNITS PO (09:41)
[2024-01-15] MEDS: Multivitamin TAB 1 TAB PO (09:41)
[2024-01-15] MEDS: Baclofen 10 MG TAB 20 MG PO ×3 (09:41→20:15)
[2024-01-15] MEDS: Senna TAB 4 TAB PO (09:41)
[2024-01-15] MEDS: LORazepam 1 MG TAB PO ×3 (09:41→20:15)
[2024-01-15] MEDS: Tamsulosin 0.4 MG CAPCR PO (09:41)
[2024-01-15] MEDS: Pregabalin 25 MG CAP PO ×3 (09:41→20:15)
[2024-01-15] MEDS: Mirabegron 25 MG TABCR PO (09:41)
[2024-01-15] MEDS: Diclofenac 1% Gel 100 GM TUBE TP ×2 (09:42→20:19)
[2024-01-15] MEDS: Ascorbic Acid 500 MG TAB 250 MG PO ×2 (09:42→20:16)
[2024-01-15] MEDS: Acetaminophen 500 MG TAB 1000 MG PO ×2 (09:42→20:15)
[2024-01-15] MEDS: Divalproex Sodium 500 MG TAB.ER.24H PO ×2 (09:42→20:15)
[2024-01-15] MEDS: Pantoprazole 40 MG TABCR PO (09:42)
[2024-01-15] MEDS: Protein Nutritional Supplement 16 GM 1 OUNCE PACKET PO ×3 (09:43→20:15)
--- NOTE | 2024-01-15 11:45 | PHA.REVIEW2 ---
Pharmacy Admission Review Admission Clinical Review Admission Pharmacy Review: Advance care planning (Acute) IV infiltrate (Acute) Right shoulder pain (Acute) Bacteremia due to Gram-positive bacteria (Acute) Left lower lobe pneumonia (Acute) Sepsis associated hypotension (Acute) Urinary tract infection (Acute) History of UTI (Acute) Decubitus skin ulcer (Acute) No Known Allergies Allergy (Verified 01/11/24 07:07) Resuscitation Status DNR/DNI Height 6 ft 2 in Weight 85.729 kg Pharmacy Admission Review Renal Dosing Renal Dosing: BUN 28 mg/dL (7-18) H 01/15/24 08:15 Creatinine 0.7 mg/dL (0.70-1.30) 01/15/24 08:15 Medications needing adjustments: Reviewed (CrCl 142.88 mL/min) Anticoagulation Anticoagulation: Hgb 8.8 g/dL (13.5-17.5) L 01/15/24 08:15 Hct 28.1 % (40.0-50.0) L 01/15/24 08:15 Plt Count 103 10^3/uL (130-400) L 01/15/24 08:15 INR 1.2 (0.9-1.1) H 01/13/24 08:15 Creatinine 0.7 mg/dL (0.70-1.30) 01/15/24 08:15 DVT Prophylaxis: Reviewed (SCDs) Opiate Usage Evaluate Pain Scale/Pains Meds: Reviewed (PRN hydromorphone) Scheduled Bowel Reg ordered if on Opiates?: Yes (Senna and docusate) Relevant Labs Relevant Labs: Sodium 144 mmol/L (136-145) 01/15/24 08:15 Potassium 4.0 mmol/L (3.5-5.1) 01/15/24 08:15 Chloride 110 mmol/L (98-107) H 01/15/24 08:15 C-Reactive Protein 15.87 mg/dL (<or=0.5) H 01/15/24 08:15 Electrolytes, C-Reactive P, ESR: Reviewed (BUN decrease from 29 to 28, Hgb decreased from 8.9 to 8.8) Cardiac Review BP, HR, EF%: Reviewed (No VS recorded for today so far) QTc Review QTc: Reviewed (424 from 01/13/24) IV to PO Switch IV Medications: Reviewed (doxycycline, hydromorphone, ketorolac and vancomycin) Home Meds Home Med List reviewed: Reviewed Relevent Home Meds Not ordered & why?: Narcan (PRN) and sildenafil (PRN) Current Meds Current Medication Order Review: Reviewed Pharmacy Antibiotic Review Relevant Labs: Relevant Labs 01/15/24 08:15 C-Reactive Protein 15.87 H Pharmacy Antibiotic Activity: C/S review and Reviewed, no change Comments: Continues on doxycycline 100mg q12h and vancomycin 1.25g q18h, day 3. Predicted AUC of 546 and trough of 16.7. Repeat trough level scheduled for 01/15 at 1100. Initial blood culture grew Enterococcus, repeat blood cultures showing no growth at 24 hours
--- NOTE | 2024-01-15 12:37 | W.PM.PROGNOT ---
Date of Service Date of service: 01/15/24 Time of Service: 12:37 Assessment and Plan Assessment and plan (1) Bacteremia due to Gram-positive bacteria: Start date: 01/13/24 Start time: 12:24 Status: Acute Assessment and plan: as above, cultures positive for Enterococcus. No vegetations or valvulopathy on his echo. Patient needs 14 days of treatment. I have weaned him down on his trazodone and will put him on Zyvox upon discharge for another 10 days. (2) Urinary tract infection: Status: Acute Assessment and plan: as above, s/p cystoscopy w/ right ureteral stone removal and stent placement after holium lithotripsy. Qualifiers: Urinary tract infection type: catheter-associated UTI Indwelling urinary catheter type: indwelling urethral catheter Encounter type: initial encounter Qualified Code(s): T83.511A - Infection and inflammatory reaction due to indwelling urethral catheter, initial encounter; N39.0 - Urinary tract infection, site not specified (3) Ureteral stone: Assessment and plan: s/p cystoscopy w/ lithotripsy and right ureteral stent; follow up w/ Dr. Molina as outpatient Subjective Subjective Interval history since last seen: Favio is feeling better. Eating ok. Pain is better. Moving bowels well. afebrile Exam Narrative Exam Narrative: alert and oriented x 3, no distress, talking w/ nursing Lungs: clear Heart: RRR Abdomen: soft, nontender, nondistended. SPC draining clear yellow urine. Objective Last Vital Signs Temp 35.5 C L 01/15/24 12:22 Pulse 78 01/15/24 12:22 Resp 15 01/15/24 12:22 BP 168/91 H 01/15/24 12:22 Pulse Ox 97 01/15/24 12:22 Laboratory Results - last 24 hr 01/11/24 01/11/24 01/11/24 08:20 08:20 08:20 WBC RBC Hgb Hct MCV MCH MCHC RDW Plt Count MPV Immature Gran % Neutrophils % Lymphocytes % Monocytes % Eosinophils % Basophils % Nucleated RBC % Absolute Neutrophils Absolute Lymphocytes Absolute Monocytes Absolute Eosinophils Absolute Basophils Sodium Potassium Chloride Carbon Dioxide Anion Gap BUN Creatinine Est GFR (CKD-EPI 2020) Glucose Calcium Total Bilirubin AST ALT Alkaline Phosphatase C-Reactive Protein Total Protein Albumin Stone Source Kidney Bladder Stone Comment See Comment See Comment Kidney Stone Analysis Not Applicable Vancomycin Trough Hep-Induced Plt Ab Ashley Heparin-PF4 Ab Inhibit Heparin-PF4 Ab Interp Heparin-PF4 Ab Comment Urine Legionella Ag 01/11/24 01/13/24 01/13/24 08:20 08:15 21:50 WBC RBC Hgb Hct MCV MCH MCHC RDW Plt Count MPV Immature Gran % Neutrophils % Lymphocytes % Monocytes % Eosinophils % Basophils % Nucleated RBC % Absolute Neutrophils Absolute Lymphocytes Absolute Monocytes Absolute Eosinophils Absolute Basophils Sodium Potassium Chloride Carbon Dioxide Anion Gap BUN Creatinine Est GFR (CKD-EPI 2020) Glucose Calcium Total Bilirubin AST ALT Alkaline Phosphatase C-Reactive Protein Total Protein Albumin Stone Source Stone Comment Kidney Stone Analysis Not Applicable Vancomycin Trough Hep-Induced Plt Ab Ashley <0.050 Heparin-PF4 Ab Inhibit Not Applicable Heparin-PF4 Ab Interp Negative Heparin-PF4 Ab Comment See Comment Urine Legionella Ag Negative 01/14/24 01/15/24 23:30 08:15 WBC 4.68 RBC 3.16 L Hgb 8.8 L Hct 28.1 L MCV 89 MCH 27.8 MCHC 31.3 L RDW 14.9 H Plt Count 103 L MPV 10.9 Immature Gran % 0.2 Neutrophils % 60.8 Lymphocytes % 21.8 Monocytes % 8.3 Eosinophils % 8.5 Basophils % 0.4 Nucleated RBC % 0.0 Absolute Neutrophils 2.84 Absolute Lymphocytes 1.02 L Absolute Monocytes 0.39 Absolute Eosinophils 0.40 Absolute Basophils 0.02 Sodium 144 Potassium 4.0 Chloride 110 H Carbon Dioxide 25.9 Anion Gap 8.1 BUN 28 H Creatinine 0.7 Est GFR (CKD-EPI 2020) 108.14 Glucose 81 Calcium 8.4 L Total Bilirubin 0.3 AST 13 L ALT 16 Alkaline Phosphatase 47 C-Reactive Protein 15.87 H Total Protein 5.9 L Albumin 2.1 L Stone Source Stone Comment Kidney Stone Analysis Vancomycin Trough Cancelled Hep-Induced Plt Ab Ashley Heparin-PF4 Ab Inhibit Heparin-PF4 Ab Interp Heparin-PF4 Ab Comment Urine Legionella Ag Time Spent with Patient Time Spent with Patient: 25-34 minutes Time was spent: preparing to see the patient(eg.review tests), ordering medications,tests, procedures, referring, communicating with other health physician locums urgent care, indepentently interpreting results, counseling the patient and care coordination
[2024-01-15 14:33] LABS: Streptococcus Pneumoniae Ag, U Negative (Negative)
[2024-01-15] MEDS: Lactobacillus Acidophilus CAP 1 CAP PO ×2 (14:46→20:15)
--- NOTE | 2024-01-15 17:00 | PDOC.CMPRO ---
Date of service: 01/15/24 Time of Service: 17:00 Care Management Progress Note Progress Note Text Progress Note Text: S/O: Favio was lying in bed receiving care from nis nurse and THERMODYNAMIC PHYSICIST when CM met with him. He engaged easily with CM, well known to him from previous admissions. Favio had a urological procedure on Thursday then became septic. Clinically he is improving. He is afebrile and his vital signs are stable. Favio shared that he anticipates being discharged back to his [facility] home tomorrow. He changed residences a few months ago and stated that he likes where he is and that things are going well. While CM was in the room, the THERMODYNAMIC PHYSICIST going off shift was instructing the oncoming THERMODYNAMIC PHYSICIST how to operate the very complicated electric bed Favio has. He became very upset, raised his voice and addressed the THERMODYNAMIC PHYSICIST in a rude manner, telling her that no one was allowed to touch the settings on the bed. She informed him that he did not need to speak that way and that he was being rude. His response was thats what everyone tells me. CM asked if Favio was still meeting with his therapist remotely and he confirmed that he is. A: 58 year old admitted to [facility] 01/11/24 for ureteral stone P: Favio will discharge to [facility] home provider (Jovanny You, ) with a resumption of VNA services (possible increase) when medically cleared by provider. He will follow up with his PCP, community providers and plan of care as instructed. Anticipate he will transport via his own W/C van with family. CM will follow and continue to support discharge planning concerns.
[2024-01-15] MEDS: VANCOMYCIN/WATER (PEG) 1.25 GM/250 ML BAG IV (17:58)
[2024-01-15] MEDS: Ketorolac 15 MG/ML VIAL IVP (20:11)
[2024-01-15] MEDS: QUEtiapine 100 MG TAB PO (21:26)
[2024-01-15] MEDS: traZODone 50 MG TAB 25 MG PO (21:26)
[2024-01-16] MEDS: LORazepam 1 MG TAB PO ×2 (00:50→08:26)
[2024-01-16] MEDS: DOXYCYCLINE 100 MG in Normal Saline 100 ML IVPB (01:53)
[2024-01-16 07:47] VITALS: PULSE 73; RESP 6; O2SAT 97
[2024-01-16] MEDS: Albuterol/Ipratropium 3 ML UPD VIAL UPD (07:47)
--- NOTE | 2024-01-16 08:08 | PDOC.HHF2F_ITS ---
Home Health Referral Home Health Orders Clinical synopsis of why skilled professionals are needed: Patient need home health including nursing to review and coordinate his med changes, monitor his recovery from sepsis, draw labs including repeat CBC and CRP in one week, wound care to his ischial skin ulcers, home P.T. to improve his strenght and ROM of his upper body. Medical diagnosis necessitation home health referral: Sepsis with Enterococcus bacteremia, DIC, anemia, thrombocytopenia, quadriplegia Registered Nurse: Check all that apply Instruct on new or changed medication(s)/assess compliance: Ordered Instruct on, and maintenance of, urinary device: Ordered Assess for exacerbation of medical condition, instruct patient/caregivers on signs and symptoms to report for early detection: Ordered Physical Therapist: Check all that apply Increase strength & endurance for safe mobility at home: Ordered Lodging Facilities Attendant: Assist with community resources: Ordered Home Bound Status Requires the aid of supportive device (check all that apply): Wheelchair Use of Special Transportation (Describe transportation and medical necessity): patient is quadriplegic w/ limited use of his upper extremities and bedbound requiring complete lift from staff for all care or transport Describe why leaving home would require a considerable and taxing effort: Side effects from pain medication (sedation/drowsiness), Requires frequent rest periods and Requires alternative accommodations: (he is complete bedbound, needs complete assistance w/ all daily cares including hygeine, and frequent turning, wound care and mobility) Encounter Date and Reason: I certify that a FTF encounter for this patient was performed on January 16, 2024 and that such encounter was related to the primary reason the patient requires home health services. The encounter was conducted in the following manner: * By me as the certifying physician, MATERIAL LISTER, PA or * By an inpatient physician, MATERIAL LISTER or PA during an inpatient stay who communicated findings to me, Certification And Authentication I certify that I composed the above information based on my clinical judgment relating to this patient's medical condition and, if applicable, clinical findings communicated to me by the NPP or inpatient physician who performed the FTF encounter. Name of Provider that will be monitoring home health services: Genevieve Baez
--- NOTE | 2024-01-16 08:19 | W.PM.DS.N ---
Date of service: 01/16/24 Time of Service: 10:11 DS: Diagnosis Discharge Diagnosis (1) Sepsis associated hypotension: Status: Acute Asessment and Plan: see hospital course and H&P for details (2) Enterococcus faecalis infection: Status: Acute (3) Bacteremia due to Gram-positive bacteria: Status: Resolved Asessment and Plan: Patient had Enterococcus faecalis in his urinary cultures prior to his cystoscopy but was premedicated w/ vancomycin, nevertheless he developed sepsis from Enterococcus and had bacteremia. He was treated w/ Vancomycin (and Zosyn until we determined that only Enterococcus was the offending organism causing his sepsis). Echocardiogram did not show any vegetations or valvulopathy and he had normal LV and RV function. Bacteremia cleared quickly and his hypotension post procedure resolved w/ iv fluids. He will be discharged on 10 days of Zyvox 600 mg bid in addition to the 5 days of Vancomycin he was treated with. (4) Urinary tract infection: Status: Acute Asessment and Plan: as above (5) Ureteral stone: Asessment and Plan: Cystoscopy, evacuation of bladder stone, remove right ureteral stent, right retrograde pyelogram, right flexible ureteroscopy with holmium laser lithotripsy of upper pole stones, extraction of stone fragments, insert right ureteral stent, change suprapubic tube. (6) Thrombocytopenia: Status: Chronic (7) Anemia: Status: Chronic (8) Quadriplegia: Status: Chronic (9) Neurogenic bladder: Discharge Plan Disposition Patient Disposition: Home W/Home Health Services Condition: Improving Discharge Details Reason For Visit: Sepsis Admit Date/Time: 01/12/24 09:28 Admit Provider: Boo Olson Attending Provider: Boo Olson Primary Care Provider: Genevieve Baez Hospital Course Hospital Course: Mr. Velasquez is a 58-year-old male quadriplegic with a history of chronic decubitus ulcers and nephrolithiasis. Patient underwent cystoscopy and evacuation of bladder stone as well as removal of her right ureteral stent, right retrograde pyelogram, right flexible ureteroscopy with holmium laser lithotripsy of right upper pole stones and extraction of stone fragments and insertion of a new right ureteral stent along with exchange of his suprapubic urinary catheter. This is performed by Dr. Ady Molina on 01/11/2024. This initially was planned as an outpatient procedure but patient developed hypotension afterwards and required admission to the hospital for sepsis. Preoperatively he was found to have Enterococcus in his urine and was prophylaxed with vancomycin prior to the procedure. Postprocedure he had hypotension that responded to IV fluids. He was continued on vancomycin and given a dose of gentamicin and then later was put on Zosyn. Dr. Molina consulted with the hospitalist service to comanage his medical conditions. I was consulted on 01/12/2024 put him on Zosyn along with vancomycin. Patient never required vasopressors and did not require transfer to the intensive care unit. Patient's condition improved Daily labs were monitored including BMP and CBC. Patient developed transient thrombocytopenia with his lowest platelet count on 01/13/2024 at 66,000 and climb 103,000 prior to discharge. Workup for DIC was obtained as well as evaluation for heparin-induced thrombocytopenia. Heparin PF4 antibody was negative. DIC panel included an elevated D-dimer of 1432 elevated fibrinogen of 444 and a pro time 11.7 INR 1.2 and a PTT of 31. LFTs were within normal limits. CRP was elevated at 15.87 and procalcitonin was elevated 0.3. Patient was found to be anemic hemoglobin on admission was 11 g but dropped as low as 8.9 g. He had no evidence of acute hematuria and no evidence of GI bleeding. It was felt that he had a low-grade DIC secondary to his sepsis. As part of his workup of his elevated D-dimer patient underwent a CT scan of his chest on 01/13/2024 that showed no pulmonary embolism but small bilateral pleural effusions along with bibasilar atelectasis. Venous duplex scan showed no DVT. Echocardiogram was performed looking for any vegetations as he did have a evidence of enterococcal bacteremia. Echocardiogram showed normal LV and RV size and function no valvulopathy and no valvular vegetations. LVEF was 55% with no regional wall motion abnormalities. As a said his urine culture prior to his procedure grew Enterococcus faecalis and Lisa albicans. His blood cultures from 01/12/2024 grew Enterococcus faecalis but subsequent blood cultures on 01/13/2024 showed no growth. Zosyn was discontinued on 01/14/2024 he was also treated with doxycycline out of abundance of concern for possible community-acquired pneumonia and workup for atypical organisms was performed including Legionella mycoplasma studies which came back negative. As a said subsequent CT scan of his chest did not show any pneumonia but showed atelectasis which was treated with incentive spirometry and Vibra-pep and aerosol treatments. Patient did transiently require supplemental oxygen on 01/12/2024 but was quickly weaned off any oxygen. At the time of discharge his oxygen saturation was 97 and 98% on room air. Patient was weaned off his trazodone in order to facilitate discharge treatment with Zyvox. Patient will be discharged on 60 mg twice a day of Zyvox for 10 days after which time he can resume his trazodone. Follow-up studies recommend include a repeat CBC and CRP in 1 week. Recommend follow-up UA in 1 week. Patient should follow-up with Dr. Molina within 2 weeks patient should see his own primary care provider in the next week. Home health services will be resumed and patient will return to his [facility] home provider Jovanny You. We will request VNA to resume services including home health nurse and MATERIAL STRESS TESTER to provide for his care including wound care to his chronic ischial skin ulcers. Home Meds and New Rx's Prescriptions: New linezolid [Zyvox] 600 mg tablet 600 mg PO Q12H 10 Days Qty: 20 0RF melatonin 10 mg capsule 10 mg PO HS PRNQty: 10 0RF Continued diclofenac sodium [Voltaren Arthritis Pain] 1 % gel 4 g topical QID PRN (Reason: muscle pain) Qty: 100 5RF Rx Instructions: apply to painful muscles naloxone [Narcan] 4 mg/actuation spray,non-aerosol 4 mg intranasal Q2M PRN (Reason: opioid overdose) Qty: 2 4RF Rx Instructions: spray 1 dose into ONE nostril; alternate nostrils w each dose until help arrives ascorbic acid (vitamin C) 250 mg tablet 250 mg PO BID Qty: 180 11RF quetiapine 100 mg tablet 100 mg PO QHS Qty: 90 4RF nystatin 100,000 unit/gram powder 1 applic topical BID Qty: 60 4RF divalproex [Depakote ER] 500 mg tablet extended release 24 hr 500 mg PO BID Qty: 60 8RF lorazepam [Ativan] 1 mg tablet 1 mg PO .COMPLEX MDD 5mg PRN (Reason: anxiety) Qty: 150 2RF Rx Instructions: 1 mg orally TID and 2 additional tabs PRN PRN; baclofen 20 mg tablet 20 mg PO TID docusate sodium [Col-Rite] 100 mg capsule 100 mg PO TID ipratropium-albuterol 0.5 mg-3 mg(2.5 mg base)/3 mL solution for nebulization 3 ml inhalation Q4H PRN Patient Comments: pt reports he does not have one Myrbetriq 25 mg tablet extended release 24 hr 25 mg PO DAILY multivitamin Tablet 1 tab PO DAILY Patient Comments: only taking one multivitamin pantoprazole [Protonix] 40 mg tablet,delayed release (DR/EC) 40 mg PO DAILY pregabalin [Lyrica] 25 mg capsule 25 mg PO TID sennosides [Senokot] 8.6 mg tablet 34.4 mg PO DAILY sildenafil [Viagra] 100 mg tablet 100 mg PO DAILY PRN (Reason: sexual activity) Rx Instructions: administer 30 minutes to 4 hours before activity. Call Favio for credit card number. He knows its self pay cholecalciferol (vitamin D3) [Vitamin D3] 25 mcg (1,000 unit) tablet 1,000 units PO DAILY Phlexy-Vits Powder In Packet 1 packet PO TID Qty: 90 0RF acetaminophen [Tylenol] 325 mg tablet 650 mg PO Q6H PRN PRN (Reason: fever or pain) Qty: 30 0RF Lactobacillus acidoph-L.bulgar [Floranex] 1 million cell tablet 1 tab PO TID Qty: 90 0RF Mag-Delay 64 mg tablet,delayed release (DR/EC) 128 mg PO BID Adults 50 Plus 0.4 mg-300 mcg- 250 mcg tablet 1 tab PO DAILY tamsulosin 0.4 mg capsule 0.4 mg PO DAILY Held trazodone 100 mg tablet 100 mg PO QHS Qty: 90 6RF Hold Instructions: Resume on 01/30/24. Discharge Instructions Instructions: Linezolid (By mouth) Additional Instructions: You are being prescribed Zyvox (Linezolid) to complete the treatment of your Enterococcal infection which had not only infected your urine but also the blood stream. This organism can cause infection of your heart valves but we treated you w/ intravenous antibiotics (Vancomycin) which has cleared the blood of the bacteria but it is important to complete a full 14 day course of treatment. Zyvox (Linezolid) is an effective oral (and also an IV) antibiotic that treats Enterococcus. However, you must remain off your Trazodone (Desyrel) for the duration of your antibiotic treatment because Zyvox and Trazodone can interact and cause a condition called serotonin syndrome characterized by fevers, rapid heart rate, confusion, profuse sweating. Zyvox should not cause this kind of reaction w/ your other medications. Stand Alone Forms: Nursing Discharge Form Referrals: Ady Molina MD [ [facility] STAFF PHYSICIAN] - (Message left with office for them to call you on Thursday, if you do not hear from them please call them to follow up to make an appointment for 2 weeks.) Genevieve Baez [Primary Care Provider] - (Message left with office for them to call you on Thursday to make a follow up appointment 1-2 weeks, please reach out to them if you do not hear from the office on Thursday. ) Activity:: Activity as Tolerated Equipment/Supplies:: No Equipment Needed Diet:: Normal Diet Discharge Orders Discharge Orders: Discharge Order (Routine); Ordered 01/16/24 Ordered By: Boo Olson Other Ambulatory Orders: Complete Blood Count w/Diff (Routine) Timeframe: 1 Week Facility: [facility] - Location: Laboratory Outpatient - [facility] Ordered By: Boo Olson C-Reactive Protein (Routine) Timeframe: 1 Week Facility: [facility] - Location: Laboratory Outpatient - [facility] Ordered By: Boo Olson DS: Summary Time Spent with Patient providing and/or coordinating discharge services: Greater than 30 minutes Specific discharge activities: Interview/exam of patient; review of discharge instructions, completion of prescriptions/discharge instructions; discussion w/ nursing and CM; documentation of hospital visit Status at Discharge Functional status at discharge: bed bound Overall status at discharge: patient is progressing back to baseline Mental Status: mental status grossly normal Speech and Movement: speech and movement normal Mood: congruent mood Affect: normal affect Quality:SDOH Health Related Social Needs: No Data to Display Exam Narrative Exam Narrative: Patient sitting up in bed, being fed by the MATERIAL STRESS TESTER He is very unhappy about my decreasing his Trazodone. He says that he did not sleep last night. I explained to him that we needed to do this on a temporary basis so that he can be prescribed the Zyvox to finish treatment of his Enterococcal infection. He indicated that we just confuse his medications. I try to explain to him that this is a temporary matter and he can take alternative sleep aids such as melatonin or that I could prescribe short term supply of Lunesta; he did not seem interested in this solution and said whatever It is important that he does not take his Trazodone while he is on the Zyvox Psych Mental Status: mental status grossly normal Speech and Movement: speech and movement normal Mood: congruent mood Affect: normal affect DS: Data Vitals/I&O Vitals and I&O: Vital Signs Temperature 36.4 C 01/15/24 22:55 Temperature Source Tympanic 01/15/24 22:55 Pulse 73 01/16/24 07:47 Pulse Rhythm Regular 01/15/24 20:20 Respiratory Rate 16 01/15/24 22:55 Respiratory Effort Normal 01/15/24 20:20 Respiratory Depth Normal 01/15/24 20:20 Respiratory Pattern Normal 01/15/24 20:20 Blood Pressure 156/93 H 01/15/24 22:55 Pulse Oximetry 97 01/16/24 07:47 Respiratory End-tidal CO2 37 01/11/24 09:56 Oxygen Delivery Method Room Air 01/16/24 07:47 Oxygen Flow Rate 0 01/16/24 07:47 Pain Level 6 01/15/24 23:00 Comment RN notified of BP 01/14/24 08:30 Intake & Output 01/15/24 01/15/24 01/16/24 11:59 23:59 11:59 Intake Total 760 / 1302.223 542.223 / 1302.223 100 / 100 Output Total 1150 / 1600 450 / 1600 350 / 350 Balance -390 / -297.777 92.223 / -297.777 -250 / -250 Intake: IV 360 / 682.223 322.223 / 682.223 100 / 100 Oral 400 / 620 220 / 620 Output: Urine 1150 / 1600 450 / 1600 350 / 350 Other: Urine Color Yellow Yellow Yellow Urine Appearance Clear Clear Cloudy Comment documented in urinary catheter flood of urine on bed due to catheter is kinked. Stool Size Moderate Small Stool Characteristics Formed Formed Brown Data Completed and Pending Labs on day of discharge: Labs from last 24 hours 01/16/24 01/15/24 01/13/24 11:00 08:15 21:50 WBC 4.68 RBC 3.16 L Hgb 8.8 L Hct 28.1 L MCV 89 MCH 27.8 MCHC 31.3 L RDW 14.9 H Plt Count 103 L MPV 10.9 Immature Gran % 0.2 Neutrophils % 60.8 Lymphocytes % 21.8 Monocytes % 8.3 Eosinophils % 8.5 Basophils % 0.4 Nucleated RBC % 0.0 Absolute Neutrophils 2.84 Absolute Lymphocytes 1.02 L Absolute Monocytes 0.39 Absolute Eosinophils 0.40 Absolute Basophils 0.02 Sodium 144 Potassium 4.0 Chloride 110 H Carbon Dioxide 25.9 Anion Gap 8.1 BUN 28 H Creatinine 0.7 Est GFR (CKD-EPI 2020) 108.14 Glucose 81 Calcium 8.4 L Total Bilirubin 0.3 AST 13 L ALT 16 Alkaline Phosphatase 47 C-Reactive Protein 15.87 H Total Protein 5.9 L Albumin 2.1 L Stone Source Stone Comment Kidney Stone Analysis Vancomycin Trough Pending Hep-Induced Plt Ab Ashley Heparin-PF4 Ab Inhibit Heparin-PF4 Ab Interp Heparin-PF4 Ab Comment Urine Legionella Ag Negative Ur Strep pneumoniae Ag 01/13/24 01/12/24 01/11/24 08:15 16:45 08:20 WBC RBC Hgb Hct MCV MCH MCHC RDW Plt Count MPV Immature Gran % Neutrophils % Lymphocytes % Monocytes % Eosinophils % Basophils % Nucleated RBC % Absolute Neutrophils Absolute Lymphocytes Absolute Monocytes Absolute Eosinophils Absolute Basophils Sodium Potassium Chloride Carbon Dioxide Anion Gap BUN Creatinine Est GFR (CKD-EPI 2020) Glucose Calcium Total Bilirubin AST ALT Alkaline Phosphatase C-Reactive Protein Total Protein Albumin Stone Source Stone Comment Kidney Stone Analysis Not Applicable Vancomycin Trough Hep-Induced Plt Ab Ashley <0.050 Heparin-PF4 Ab Inhibit Not Applicable Heparin-PF4 Ab Interp Negative Heparin-PF4 Ab Comment See Comment Urine Legionella Ag Ur Strep pneumoniae Ag Negative 01/11/24 01/11/24 01/11/24 08:20 08:20 08:20 WBC RBC Hgb Hct MCV MCH MCHC RDW Plt Count MPV Immature Gran % Neutrophils % Lymphocytes % Monocytes % Eosinophils % Basophils % Nucleated RBC % Absolute Neutrophils Absolute Lymphocytes Absolute Monocytes Absolute Eosinophils Absolute Basophils Sodium Potassium Chloride Carbon Dioxide Anion Gap BUN Creatinine Est GFR (CKD-EPI 2020) Glucose Calcium Total Bilirubin AST ALT Alkaline Phosphatase C-Reactive Protein Total Protein Albumin Stone Source Bladder Kidney Stone Comment See Comment See Comment Kidney Stone Analysis Not Applicable Vancomycin Trough Hep-Induced Plt Ab Ashley Heparin-PF4 Ab Inhibit Heparin-PF4 Ab Interp Heparin-PF4 Ab Comment Urine Legionella Ag Ur Strep pneumoniae Ag Preliminary micro results at discharge 01/12/24 12:18 Blood Culture - Preliminary Blood Enterococcus Faecalis 01/12/24 12:28 Blood Culture - Preliminary Blood NO GROWTH 72 HOURS 01/13/24 10:00 Blood Culture - Preliminary Blood NO GROWTH 48 HOURS 01/13/24 09:55 Blood Culture - Preliminary Blood NO GROWTH 48 HOURS PFSH All Active Problems (Updated 01/16/24 @ 08:30 by Boo Olson MD) Enterococcus faecalis infection (Acute) Thrombocytopenia (Chronic) Anemia (Chronic) Advance care planning (Acute) Erectile disorder (Acute) IV infiltrate (Acute) Right shoulder pain (Acute) Left lower lobe pneumonia (Acute) Sepsis associated hypotension (Acute) Abrasion of foot, right (Acute) Urinary tract infection (Acute) History of UTI (Acute) Palliative care patient (Acute) Neck pain (Acute) Decubitus skin ulcer (Acute) Constipation due to neurogenic bowel (Acute) Chronic recurrent multifocal osteomyelitis (Chronic) Acute osteomyelitis of sacrum (Chronic) Major depressive disorder (Chronic) Quadriplegia (Chronic) Medical History Confusion Ureteral stone High blood pressure determined by examination Acute on chronic anemia Atelectasis Bilateral pneumonia Urinary tract infection Insomnia Discharge planning issues DVT prophylaxis Anxiety disorder Neurogenic bladder Muscle spasm Bladder stones Bronchospasm Insomnia Weight gain DIAMOND (acute kidney injury) Low magnesium level Open wound of abdominal wall Encounter for wound care Visit for wound check Right arm pain Malnutrition following gastrointestinal surgery Large bowel obstruction Iron deficiency anemia Aspiration into airway Ileus Neurogenic bowel Physician orders for life-sustaining treatment (POLST) form indicates patient wish for [id number] status DNR (do not resuscitate) Decubitus ulcer of buttock, stage 4 H/O deep venous thrombosis DVT (deep venous thrombosis) Constipation Fall down embankment Hypotension Acute embolism and thrombosis of deep vein of right lower extremity Fusion of spine Dislocation of C6/C7 cervical vertebrae C. difficile colitis Surgical History History of infusaport central venous catheter insertion Suprapubic catheter S/P colostomy Social History Smoking/Tobacco Use Status: Never Smoking risk assessment performed?: Yes Alcohol Intake: current Alcohol Intake frequency: holidays/special occasions only Substance use type: does not use Housing: house Do you feel safe at home: Yes Do you feel safe in your relationship?: Yes Time Spent with Patient Time Spent with Patient: 45-69 minutes Time was spent: preparing to see the patient(eg.review tests), ordering medications,tests, procedures, referring, communicating with other health point of care specialist, indepentently interpreting results, counseling the patient and care coordination
[2024-01-16] MEDS: Acetaminophen 500 MG TAB 1000 MG PO (08:25)
[2024-01-16] MEDS: Baclofen 10 MG TAB 20 MG PO (08:25)
[2024-01-16] MEDS: Mirabegron 25 MG TABCR PO (08:25)
[2024-01-16] MEDS: Cholecalciferol (Vitamin D3) 1,000 UNIT TAB 1000 UNITS PO (08:25)
[2024-01-16] MEDS: Lactobacillus Acidophilus CAP 1 CAP PO (08:25)
[2024-01-16] MEDS: Multivitamin TAB 1 TAB PO (08:25)
[2024-01-16] MEDS: Ascorbic Acid 500 MG TAB 250 MG PO (08:25)
[2024-01-16] MEDS: Pantoprazole 40 MG TABCR PO (08:26)
[2024-01-16] MEDS: Magnesium Chloride 64 MG TABCR 128 MG PO (08:26)
[2024-01-16] MEDS: Protein Nutritional Supplement 16 GM 1 OUNCE PACKET PO (08:26)
[2024-01-16] MEDS: Divalproex Sodium 500 MG TAB.ER.24H PO (08:26)
[2024-01-16] MEDS: Tamsulosin 0.4 MG CAPCR PO (08:26)
[2024-01-16] MEDS: Senna TAB 4 TAB PO (08:26)
[2024-01-16] MEDS: Pregabalin 25 MG CAP PO (08:26)
[2024-01-16] MEDS: Docusate Sodium 100 MG CAP PO (08:26)
[2024-01-16] MEDS: Ketorolac 15 MG/ML VIAL IVP (08:27)
[2024-01-16] MEDS: Diclofenac 1% Gel 100 GM TUBE TP (08:28)
[2024-01-16 09:15] VITALS: BP 168/98; PULSE 72; RESP 16; TEMP 36.7; O2SAT 97
[2024-01-16] MEDS: Bacitracin 1 PACKET TP (10:53)
--- NOTE | 2024-01-16 12:18 | PDOC.CMDIS ---
Date of service: 01/16/24 Time of Service: 12:18 LACE Index Scoring Tool Questions: Length of Stay (in days): 4 - 6 Was the patient admitted via the E.D.?: Yes E.D. Visits: 4 Answers: Total Score: 11 Risk of Readmission: High Risk Care Management Discharge Plan Reason for Hospitalization: Sepsis Discharge Plan: Favio returned to the [facility] home where he resides with his caregiver, Jovanny, and a resumption of services. He was transported via private w/c van, by his family. He will follow up with his PCP and discharge plan of care. Patient/Family Education Needs: Review discharge instructions and limitations, discussion of self care needs including ask me three. Services Needed at Discharge: Home Health Care Services (resume care) SDOH Health Related Social Needs: No Data to Display
== END 2024-01-16 12:46 | disposition home health service (06) | DRG 659 ==
LOC: MS 10:37
PROVIDERS: Urology; Admitting Provider Internal Medicine; PCP Family Medicine; Visit Provider Internal Medicine
PROC: 0T768DZ Dilation of Right Ureter with Intraluminal Device, Via Natural or Artificial Opening Endoscopic (ICD-10-PCS; CPT 51705; principal; 2024-01-11 07:30)
DX: A41.81 Sepsis due to Enterococcus (principal); D65 Disseminated intravascular coagulation [defibrination syndrome]; G82.50 Quadriplegia, unspecified; N20.1 Calculus of ureter; T83.510A Infection and inflammatory reaction due to cystostomy catheter, initial encounter; N39.0 Urinary tract infection, site not specified; K59.2 Neurogenic bowel, not elsewhere classified; J98.11 Atelectasis; Z87.440 Personal history of urinary (tract) infections; M25.511 Pain in right shoulder; N31.9 Neuromuscular dysfunction of bladder, unspecified; K59.09 Other constipation; R09.02 Hypoxemia; G47.00 Insomnia, unspecified; E83.42 Hypomagnesemia; D50.9 Iron deficiency anemia, unspecified; T80.89XA Other complications following infusion, transfusion and therapeutic injection, initial encounter
CPT/HCPCS: 36410; 51705; 52356; 00123; 36415; 71275; 80053; 84145; 85384; 86022; 87040; 87077; 87449; 87637; 93308; 99231; 99232; 71045; 73030; 74420; 80202; 82365; 82728; 83540; 83550; 85025; 85379; 85610; 85730; 86140; 87186; 87899; 93005; 93010; 93306; 93970; 94640; 94667; 94668; 94760; 99223; 99239; G0378; J1100; J1170; J1580; J1885; J1941; J2001; J2405; J2543; J2704; J3370; J3372; J3490; J7620; Q9967

== ENCOUNTER 2024-01-22 16:05 | Outpatient (REF) | payer MEDICARE, MEDICAID, SELFPAY ==
[2024-01-22 16:34] LABS: Abs Immature Grans 0.03 10^3/uL (0.0-0.06); Absolute Basophil Count 0.04 10^3/uL (0.0-0.2); Absolute Eosinophil Count 0.25 10^3/uL (0.0-0.7); Absolute Monocyte Count 0.39 10^3/uL (0.1-0.8); Absolute Neutrophil Count 4.72 10^3/uL (1.2-6.7); Basophils % 0.6; Eosinophils % 3.6; HCT 35.2 % (40.0-50.0); HGB 10.9 g/dL (13.5-17.5); Immature Grans % 0.4; Lymphocytes % 21.6; MCH 28.1 pg (27.0-33.0); MCV 91 fL (80-95); MPV 9.7 fL (8.0-11.0); Monocytes % 5.6; Neutrophils % 68.2; Platelet Count 254 10^3/uL (130-400); RBC 3.88 10^6/uL (4.36-5.78); RDW 15.9 % (11.8-14.1); RDW-SD 51.6 fL; WBC 6.93 10^3/uL (4.4-10.8)
[2024-01-22 17:15] LABS: C-Reactive Protein 2.07 mg/dL (<or=0.5)
== END 2024-01-22 16:06 | disposition home or self-care (01) ==
LOC: LBN 16:05
PROVIDERS: Internal Medicine; PCP Family Medicine; Visit Provider Family Medicine
DX: R79.82 Elevated C-reactive protein (CRP) (principal); N39.0 Urinary tract infection, site not specified; R82.998 Other abnormal findings in urine; D64.9 Anemia, unspecified
CPT/HCPCS: 85025; 86140; 87086

== ENCOUNTER → 2024-01-26 08:30 | Outpatient (BNVA) | payer MEDICARE, MEDICAID, SELFPAY | PROVIDERS: PCP Family Medicine; Referring Provider Family Medicine; Visit Provider Urology | DX: N20.1 Calculus of ureter (principal) | CPT/HCPCS: 99214 ==

== ENCOUNTER 2024-02-24 18:20 | Outpatient (REF) | payer MEDICARE, MEDICAID, SELFPAY ==
[2024-02-24 18:07] LABS: Bilirubin Negative (Negative); Blood Large (Negative); Clarity Turbid (Clear); Glucose Negative (Negative); Ketones Negative (Negative); Leukocyte Esterase Moderate (Negative); Nitrite Positive (Negative); Specific Gravity 1.025 (1.005-1.025); Urobilinogen 0.2 mg/dL (Up to 0.2)
[2024-02-24 18:21] LABS: C & S Indicated? C&S Done As Ordered; WBC >50 HPF (0-5)
== END 2024-02-24 18:21 | disposition home or self-care (01) ==
LOC: LBN 18:20
PROVIDERS: PCP Family Medicine; Visit Provider Urology
DX: N39.0 Urinary tract infection, site not specified (principal); R82.89 Other abnormal findings on cytological and histological examination of urine
CPT/HCPCS: 87077; 81003; 81015; 87086; 87186

== ENCOUNTER 2024-03-02 16:42 | Outpatient (REF) | payer MEDICARE, MEDICAID, SELFPAY | END 2024-03-02 16:43 | disposition home or self-care (01) | LOC: NCHCN 16:42 | PROVIDERS: PCP Family Medicine; Visit Provider Family Medicine | DX: M46.28 Osteomyelitis of vertebra, sacral and sacrococcygeal region (principal) | CPT/HCPCS: 87077; 87070; 87186; 87205 ==

== ENCOUNTER 2024-03-11 15:23 | Outpatient (REF) | payer MEDICARE, MEDICAID, SELFPAY ==
[2024-03-11 16:10] LABS: HCT 38.5 % (40.0-50.0); HGB 12.2 g/dL (13.5-17.5); MCH 28.2 pg (27.0-33.0); MCHC 31.7 % (32.0-36.0); MCV 89 fL (80-95); Platelet Count 171 10^3/uL (130-400); RBC 4.33 10^6/uL (4.36-5.78); RDW 15.9 % (11.8-14.1); WBC 5.42 10^3/uL (4.4-10.8)
[2024-03-11 16:13] LABS: Iron 42 ug/dL (65-175); Total Iron Binding Capacity 215 ug/dL (250-450); Transferrin Sat 20 % (20-55)
[2024-03-11 16:23] LABS: C-Reactive Protein 1.27 mg/dL (<or=0.5)
== END 2024-03-11 15:24 | disposition home or self-care (01) ==
LOC: NCHCN 15:23
PROVIDERS: PCP Family Medicine; Visit Provider Family Medicine
DX: D64.9 Anemia, unspecified (principal)
CPT/HCPCS: 85027; 83540; 83550; 86140

== ENCOUNTER → 2024-03-31 09:47 | Outpatient (BNVA) | payer MEDICARE, MEDICAID, SELFPAY | PROVIDERS: PCP Family Medicine; Referring Provider Family Medicine; Visit Provider Urology | DX: N20.0 Calculus of kidney (principal) | CPT/HCPCS: 99442 ==

== ENCOUNTER 2024-04-06 17:44 | Outpatient (REF) | payer MEDICARE, MEDICAID, SELFPAY ==
[2024-04-06 17:04] LABS: Abs Immature Grans 0.01 10^3/uL (0.0-0.06); Absolute Basophil Count 0.03 10^3/uL (0.0-0.2); Absolute Eosinophil Count 0.16 10^3/uL (0.0-0.7); Absolute Lymphocyte Count 1.64 10^3/uL (1.2-3.4); Absolute Neutrophil Count 2.58 10^3/uL (1.2-6.7); Basophils % 0.6 %; Eosinophils % 3.4 %; HCT 36.9 % (40.0-50.0); Immature Grans % 0.2 %; Lymphocytes % 34.7 %; MCH 28.4 pg (27.0-33.0); MCHC 32.5 % (32.0-36.0); MCV 87 fL (80-95); MPV 11.6 fL (8.0-11.0); Monocytes % 6.4 %; Neutrophils % 54.7 %; Platelet Count 168 10^3/uL (130-400); RBC 4.23 10^6/uL (4.36-5.78); RDW 14.8 % (11.8-14.1); RDW-SD 47.5 fL; WBC 4.72 10^3/uL (4.4-10.8)
[2024-04-06 17:23] LABS: ALT 20 U/L (16-63); AST 11 U/L (15-37); Albumin 3.3 g/dL (3.4-5.0); Alkaline Phosphatase 56 U/L (46-116); Anion Gap 9.7 mmol/L (3-11); BUN 25 mg/dL (7-18); Bilirubin, Total 0.2 mg/dL (0.2-1.0); CO2 25.3 mmol/L (21.0-32.0); CREATININE 0.7 mg/dL (0.70-1.30); Calcium 9.2 mg/dL (8.5-10.1); Chloride 103 mmol/L (98-107); Estimated GFR 108.14 (mL/min/1.73m2); Glucose 98 mg/dL (74-106); Potassium 4.9 mmol/L (3.5-5.1); Sodium 138 mmol/L (136-145); Total Protein 6.9 g/dL (6.4-8.2)
[2024-04-06 17:49] LABS: Bilirubin Negative (Negative); Blood Trace-intact (Negative); Clarity Clear (Clear); Glucose Negative (Negative); Ketones Negative (Negative); Leukocyte Esterase Moderate (Negative); Nitrite Negative (Negative); Specific Gravity >= 1.030 (1.005-1.025); Urobilinogen 0.2 mg/dL (Up to 0.2); pH 5.5 (5-8)
[2024-04-06 18:00] LABS: Epithelial Cells Rare HPF (Negative); Other Cells Moderate Yeast (Negative); RBC 0-2 HPF (0-2); WBC 20-50 HPF (0-5)
[2024-04-06 18:01] LABS: Bacteria Rare HPF (Negative); C & S Indicated? C&S Done As Ordered; Casts Negative LPF (Negative); Crystals Negative HPF (Negative); Mucus Negative (Negative)
== END 2024-04-06 17:45 | disposition home or self-care (01) ==
LOC: NCHCN 17:44
PROVIDERS: PCP Family Medicine; Visit Provider Family Medicine
DX: D64.9 Anemia, unspecified (principal); N39.0 Urinary tract infection, site not specified; M46.28 Osteomyelitis of vertebra, sacral and sacrococcygeal region; B96.4 Proteus (mirabilis) (morganii) as the cause of diseases classified elsewhere; F32.1 Major depressive disorder, single episode, moderate; Z87.440 Personal history of urinary (tract) infections; N20.1 Calculus of ureter; R82.998 Other abnormal findings in urine
CPT/HCPCS: 80053; 81003; 81015; 85025; 87086

== ENCOUNTER 2024-04-07 09:19 | Observation (INO) | payer MEDICARE, MEDICAID, SELFPAY ==
[2024-04-07] VITALS (53 sets, daily range): BP systolic 78–129; BP diastolic 38–85; PULSE 55–96; RESP 9–20; TEMP 35.6–36.8; O2SAT 89–99; BMI 24.3
--- NOTE | 2024-04-07 06:46 | ANES.PREOP_ITS ---
General Info Date of Service Date Performed: 04/07/24 Height: 6 ft 2 in Weight: 85.729 kg Body Mass Index (BMI): 24.3 Surgical Procedure: Operation Date: 04/07/24 07:40 Proposed Procedure Side Surgeon p Cystoscopy/Laser/Retrograde/Ureteroscopy Right Ady Molina MD Meds Allergies and Home Medications Allergies Allergy/AdvReac Type Severity Reaction Status Date / Time No Known Allergies Allergy Verified 04/07/24 07:01 Home Medication Medication Instructions Recorded Lactobacillus acidoph-L.bulgaricus 1 tab PO TID #90 tabs 01/08/22 1 million cell tablet (Floranex) acetaminophen 325 mg tablet 650 mg (2 x 325 mg) PO Q6H PRN PRN 01/08/22 (Tylenol) fever or pain #30 tabs magnesium chloride 64 mg 128 mg PO BID 02/24/22 (magnesium chloride) tablet,delayed release (Mag-Delay) diclofenac sodium 1 % topical gel 4 g topical QID PRN muscle pain 02/27/23 (Voltaren Arthritis Pain) #100 grams cholecalciferol (vitamin D3) 25 1,000 units PO DAILY 07/24/23 mcg (1,000 unit) tablet (Vitamin D3) sildenafil 100 mg tablet (Viagra) 100 mg PO DAILY PRN sexual activity 07/24/23 nystatin 100,000 unit/gram topical 1 applic topical BID #60 grams 08/07/23 powder naloxone 4 mg/actuation nasal 4 mg intranasal Q2M PRN opioid 08/21/23 spray (Narcan) overdose #2 ea baclofen 20 mg tablet 20 mg PO TID 11/11/23 docusate sodium 100 mg capsule 100 mg PO TID 11/11/23 (Col-Rite) ipratropium 0.5 mg-albuterol 3 mg 3 ml inhalation Q4H PRN 11/11/23 (2.5 mg base)/3 mL nebulization soln mirabegron 25 mg tablet,extended 25 mg PO DAILY 11/11/23 release 24 hr (Myrbetriq) pantoprazole 40 mg tablet,delayed 40 mg PO DAILY 11/11/23 release (Protonix) pregabalin 25 mg capsule (Lyrica) 25 mg PO TID 11/11/23 sennosides 8.6 mg tablet (Senokot) 34.4 mg PO DAILY 11/11/23 wflnzvpq-ghh-rmfom acid 0.4 1 tab PO DAILY 11/12/23 mg-lycopene 300 mcg-lutein 250 mcg tablet (Adults 50 Plus) tamsulosin 0.4 mg capsule 0.4 mg PO DAILY 11/12/23 ascorbic acid (vitamin C) 250 mg 250 mg PO BID #180 tabs 11/26/23 tablet divalproex 500 mg tablet,extended 500 mg PO BID #60 tabs 12/10/23 release 24 hr (Depakote ER) melatonin 10 mg capsule 10 mg PO HS PRN #10 caps 01/16/24 lorazepam 1 mg tablet (Ativan) 1 mg PO .COMPLEX PRN anxiety #150 02/21/24 tabs cephalexin 500 mg capsule 500 mg PO TID antibiotic #21 caps 02/29/24 quetiapine 100 mg tablet 100 mg PO QHS #90 tabs 04/05/24 sulfamethoxazole 800 2 tab PO BID #120 tabs 04/05/24 mg-trimethoprim 160 mg tablet (Bactrim DS) trazodone 100 mg tablet 50 mg (1/2 x 100 mg) PO QHS #90 04/05/24 tabs cefadroxil 500 mg capsule 500 mg PO DAILY 04/07/24 Current Visit Medications: Current Medications Generic Name Dose Route Start Last Admin Trade Name Freq PRN Reason Stop Dose Admin Ringer's Solution 1,000 mls @ 80 mls/hr 04/07/24 06:00 IV 04/07/24 23:59 INFUSION ALDEN Ceftriaxone Sodium/Dextrose 1 gm in 50 mls @ 100 mls/hr 04/07/24 06:00 Rocephin IVPB 04/07/24 23:59 PREOP ALDEN IV Miscellaneous Supplies 1 each 04/07/24 06:00 Iv Access IV 04/07/24 23:59 DIRECTED ALDEN Sodium Chloride 0 ml 04/07/24 06:00 Normal Saline Flush 10 Ml Syr IV 04/07/24 23:59 PRN PRN Sodium Chloride 0 ml 04/07/24 06:00 Normal Saline 10 Ml Vial IJ 04/07/24 23:59 DIRECTED PRN Sterile Water 0 ml 04/07/24 06:00 Water,Injection,Sterile 10 Ml Vial IJ 04/07/24 23:59 DIRECTED PRN PFSH Active Problems Active Problems: Problem Status Onset Code Insomnia G47.00 Enterococcus faecalis infection A49.8 Thrombocytopenia D69.6 Anemia D64.9 Advance care planning Z71.89 Erectile disorder N52.9 Right shoulder pain M25.511 Abrasion of foot, right S90.811A Urinary tract infection N39.0 History of UTI Z87.440 Palliative care patient Z51.5 Neck pain M54.2 Decubitus skin ulcer L89.90 Constipation due to neurogenic bowel K59.00, K59.2 Chronic recurrent multifocal osteomyelitis 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 Acute osteomyelitis of sacrum M46.28 Major depressive disorder F32.9 Quadriplegia G82.50 Hx of caloric malnutrition Z86.39 Medical History Medical History Confusion Ureteral stone High blood pressure determined by examination Acute on chronic anemia Atelectasis Bilateral pneumonia Urinary tract infection Insomnia Discharge planning issues DVT prophylaxis Anxiety disorder Neurogenic bladder Muscle spasm Bladder stones Bronchospasm Insomnia Weight gain DIAMOND (acute kidney injury) Low magnesium level Open wound of abdominal wall Encounter for wound care Visit for wound check Right arm pain Malnutrition following gastrointestinal surgery Large bowel obstruction Iron deficiency anemia Aspiration into airway Ileus Neurogenic bowel Physician orders for life-sustaining treatment (POLST) form indicates patient wish for ch-yik-dvlwbanclmg status DNR (do not resuscitate) Decubitus ulcer of buttock, stage 4 H/O deep venous thrombosis DVT (deep venous thrombosis) Constipation Fall down embankment Hypotension Acute embolism and thrombosis of deep vein of right lower extremity Fusion of spine Dislocation of C6/C7 cervical vertebrae C. difficile colitis Medical History Comments:: Daily marijauna, smoking Surgical History Surgical History History of infusaport central venous catheter insertion Suprapubic catheter S/P colostomy Tobacco Smoking/Tobacco Use Status: Never Alcohol Alcohol Intake: current Alcohol intake frequency: holidays/special occasions only Substance Use Substance use: Occasionally Substance use type: other Details: CBD pen Vital Signs and Lab Results Lab Results Blood Type / Crossmatch: No Data to Display Complete Blood Count: White Blood Count 4.72 10^3/uL (4.4-10.8) 04/06/24 14:40 Red Blood Count 4.23 10^6/uL (4.36-5.78) L 04/06/24 14:40 Hemoglobin 12.0 g/dL (13.5-17.5) L 04/06/24 14:40 Hematocrit 36.9 % (40.0-50.0) L 04/06/24 14:40 Platelet Count 168 10^3/uL (130-400) 04/06/24 14:40 Complete Metabolic Panel: Sodium 138 mmol/L (136-145) 04/06/24 14:40 Potassium 4.9 mmol/L (3.5-5.1) 04/06/24 14:40 Chloride 103 mmol/L (98-107) 04/06/24 14:40 Carbon Dioxide 25.3 mmol/L (21.0-32.0) 04/06/24 14:40 BUN 25 mg/dL (7-18) H 04/06/24 14:40 Creatinine 0.7 mg/dL (0.70-1.30) 04/06/24 14:40 Est GFR (CKD-EPI 2020) 108.14 (mL/min/1.73m2) 04/06/24 14:40 Calcium 9.2 mg/dL (8.5-10.1) 04/06/24 14:40 Albumin 3.3 g/dL (3.4-5.0) L 04/06/24 14:40 Glucose 98 mg/dL (74-106) 04/06/24 14:40 C-Reactive Protein 1.27 mg/dL (<or=0.5) H 03/11/24 14:25 Liver Function Panel: Alanine Aminotransferase (ALT/SGPT) 20 U/L (16-63) 04/06/24 14: 40 Aspartate Amino Transf (AST/SGOT) 11 U/L (15-37) L 04/06/24 14: 40 Coagulation Panel: No Data to Display Cardiac Panel: No Data to Display Arterial Blood Gas: No Data to Display Venous Blood Gas: No Data to Display Pancreas Panel: No Data to Display Thyroid Panel: No Data to Display Infectious Disease: No Data to Display Blood Cultures: No Data to Display Toxicology Panel: No Data to Display Imaging and Studies Imaging and Studies Study information below may be from another EMR and interpreted by another provider. Please see original notes in EMR for more complete details. EKG Summary: 02/20: sinus rhythm. Echocardiogram Summary: 09/04/21: EF 57%, No hemodynamic valve concerns 03/18/2021 Conclusion Left Ventricle : The left ventricle is normal size. The overall left ventricular systolic function appears normal. There is normal left ventricular wall thickness. Regional wall motion is not well visualized but grossly normal. The left ventricular diastolic function is normal. Right Ventricle : Right ventricle is not well visualized. Right ventricular systolic function could not be assessed. Atria : The left atrium size is normal. The right atrium size is normal. Valves: There are no hemodynamically significant valvular lesions. There is no clear evidence of endocarditis in this technically limited study. Great Vessels : The aortic root is normal in size. The ascending aorta is mildly dilated. IVC is normal in size and collapses >50% with inspiration. Please see remainder of findings for further details. Anesthesia Assessment and Plan Anesthesia History Personal History: No History of Anesthesia Complications Family History: No Family History of Anesthesia Complications Exercise Tolerance Exercise Tolerance: Metabolic Equivalents<4 Cardiac & Pulmonary Exam Cardiac Exam: Normal S1/S2 Heart Sounds Pulmonary Exam: Clear Bilateral Breath Sounds Implantable Cardiac Device Does patient have a Pacemaker or an ICD?: No Airway Exam Known Difficult Airway: No Mallampati Class: 3 Mouth Opening: Normal (> 3cm) Thyromental Distance: Greater than 3 cm Neck Range of Motion: Limited ROM Neck Circumference: Normal Teeth Condition: Loose or Chipped Airway Comments: multiple missing teeth. ASA Classification ASA Score: ASA 3 Emergency Case?: No NPO Status NPO Status: NPO Clears >2 hours, Solids >8 hours Anesthesia Plan Resuscitation Status: Full Code Anesthesia Technique: General Anesthesia Airway Planned: Endotracheal Tube Monitors Used: Standard Monitors Preoperative Comments:: History of intraoperative Autonomic dysreflexia: plan nicardipine gtt in the room. Patient verbally agreed to the plan, refused to sign, asked for his mother to sign She signs for me. Per mother, Jennifer, does not have POA but did sign for patient. Preop RN Maggie SOCIAL SCIENTIST witnessed.
--- NOTE | 2024-04-07 07:06 | HPE_ITS ---
Date of service: 04/07/24 Time of Service: 07:06 Assessment and Plan Assessment and plan (1) Ureteral stone: (2) Neurogenic bladder: Assessment and plan: We will plan to do right-sided ureteroscopy to directly visualize the abnormality seen on CT scan. We will have our holmium laser available if need be. We will prophylax him with antibiotics based on his most recent positive cultures done at [facility] (resistant to Levaquin, Nitrofurantoin and Bactrim). We will keep him here in the hospital overnight for 24 hours of IV antibiotics before discharging him to home. History of Present Illness History of Present Illness Chief Complaint: Right kidney stone Narrative: This is a 58-year-old gentleman who has a history of a neurogenic bladder as a result of a spinal injury at C6-7. He has an indwelling suprapubic tube. He has had recurrent stones both in the kidneys and the bladder. He had a recent hospitalization for Proteus urosepsis episode. As part of his imaging, a CT scan was done. There was a linear density in the right kidney which could be a retained foreign body or a stone cast in the shape of his previous indwelling stent. He presents now for ureteroscopy and treatment of either his stone or retained foreign body. He does have a history of sepsis following surgical procedures, so we will plan on keeping him here in the hospital overnight with IV antibiotics. Review of Systems Narrative: No fevers or chills No vision change No diabetes or thyroid dysfunction No shortness of breath, cough or hemoptysis No chest pain or palpitations No nausea, vomiting, hepatitis, ulcers, jaundice Paraplegia. No seizures, strokes or peripheral neuropathy No bleeding disorders or anemia No gout PFSH All Active Problems Insomnia (Acute) Enterococcus faecalis infection (Acute) Thrombocytopenia (Chronic) Anemia (Chronic) Advance care planning (Acute) Erectile disorder (Acute) Right shoulder pain (Acute) Abrasion of foot, right (Acute) Urinary tract infection (Acute) History of UTI (Acute) Palliative care patient (Acute) Neck pain (Acute) Decubitus skin ulcer (Acute) Constipation due to neurogenic bowel (Acute) Chronic recurrent multifocal osteomyelitis (Chronic) Acute osteomyelitis of sacrum (Chronic) Major depressive disorder (Chronic) Quadriplegia (Chronic) Medical History Confusion Ureteral stone High blood pressure determined by examination Acute on chronic anemia Atelectasis Bilateral pneumonia Urinary tract infection Insomnia Discharge planning issues DVT prophylaxis Anxiety disorder Neurogenic bladder Muscle spasm Bladder stones Bronchospasm Insomnia Weight gain DIAMOND (acute kidney injury) Low magnesium level Open wound of abdominal wall Encounter for wound care Visit for wound check Right arm pain Malnutrition following gastrointestinal surgery Large bowel obstruction Iron deficiency anemia Aspiration into airway Ileus Neurogenic bowel Physician orders for life-sustaining treatment (POLST) form indicates patient wish for vx-lyn-mbhhgbjraqp status DNR (do not resuscitate) Decubitus ulcer of buttock, stage 4 H/O deep venous thrombosis DVT (deep venous thrombosis) Constipation Fall down embankment Hypotension Acute embolism and thrombosis of deep vein of right lower extremity Fusion of spine Dislocation of C6/C7 cervical vertebrae C. difficile colitis Surgical History History of infusaport central venous catheter insertion Suprapubic catheter S/P colostomy Social History Smoking/Tobacco Use Status: Never Smoking risk assessment performed?: Yes Alcohol Intake: current Alcohol Intake frequency: holidays/special occasions only Drug use: Occasionally Substance use type: other Details: CBD pen Housing: house Additional Social history: Lives with caregivers Annamarie Arauz & Jovanny mcclain [facility] Allergies and Home Medications Allergies Allergy/AdvReac Type Severity Reaction Status Date / Time No Known Allergies Allergy Verified 04/07/24 07:01 Home Medications Medication Instructions Recorded Confirmed Type Lactobacillus acidoph-L.bulgaricus 1 tab PO TID #90 tabs 01/08/22 04/07/24 Rx 1 million cell tablet (Floranex) acetaminophen 325 mg tablet 650 mg (2 x 325 mg) PO Q6H PRN PRN 01/08/22 04/07/24 Rx (Tylenol) fever or pain #30 tabs magnesium chloride 64 mg 128 mg PO BID 02/24/22 04/07/24 History (magnesium chloride) tablet,delayed release (Mag-Delay) diclofenac sodium 1 % topical gel 4 g topical QID PRN muscle pain 02/27/23 04/07/24 Rx (Voltaren Arthritis Pain) #100 grams cholecalciferol (vitamin D3) 25 1,000 units PO DAILY 07/24/23 04/07/24 History mcg (1,000 unit) tablet (Vitamin D3) sildenafil 100 mg tablet (Viagra) 100 mg PO DAILY PRN sexual activity 07/24/23 04/07/24 History nystatin 100,000 unit/gram topical 1 applic topical BID #60 grams 08/07/23 04/07/24 Rx powder naloxone 4 mg/actuation nasal 4 mg intranasal Q2M PRN opioid 08/21/23 04/07/24 Rx spray (Narcan) overdose #2 ea baclofen 20 mg tablet See Rx Instructions PO TID 11/11/23 04/07/24 History docusate sodium 100 mg capsule 100 mg PO TID 11/11/23 04/07/24 History (Col-Rite) ipratropium 0.5 mg-albuterol 3 mg 3 ml inhalation Q4H PRN 11/11/23 04/07/24 History (2.5 mg base)/3 mL nebulization soln mirabegron 25 mg tablet,extended 25 mg PO DAILY 11/11/23 04/07/24 History release 24 hr (Myrbetriq) pantoprazole 40 mg tablet,delayed 40 mg PO DAILY 11/11/23 04/07/24 History release (Protonix) pregabalin 25 mg capsule (Lyrica) 25 mg PO TID 11/11/23 04/07/24 History sennosides 8.6 mg tablet (Senokot) 34.4 mg PO BID 11/11/23 04/07/24 History sqoybrvy-ehq-hxlcs acid 0.4 1 tab PO DAILY 11/12/23 04/07/24 History mg-lycopene 300 mcg-lutein 250 mcg tablet (Adults 50 Plus) tamsulosin 0.4 mg capsule 0.4 mg PO DAILY 11/12/23 04/07/24 History ascorbic acid (vitamin C) 250 mg 250 mg PO BID #180 tabs 11/26/23 04/07/24 Rx tablet divalproex 500 mg tablet,extended 500 mg PO BID #60 tabs 12/10/23 04/07/24 Rx release 24 hr (Depakote ER) melatonin 10 mg capsule 10 mg PO HS PRN #10 caps 01/16/24 04/07/24 Rx lorazepam 1 mg tablet (Ativan) 1 mg PO .COMPLEX PRN anxiety #150 02/21/24 04/07/24 Rx tabs cephalexin 500 mg capsule 500 mg PO TID antibiotic #21 caps 02/29/24 04/07/24 Rx quetiapine 100 mg tablet 100 mg PO QHS #90 tabs 04/05/24 04/07/24 Rx sulfamethoxazole 800 2 tab PO BID #120 tabs 04/05/24 04/07/24 Rx mg-trimethoprim 160 mg tablet (Bactrim DS) trazodone 100 mg tablet 50 mg (1/2 x 100 mg) PO QHS #90 04/05/24 04/07/24 Rx tabs cefadroxil 500 mg capsule 500 mg PO DAILY 04/07/24 04/07/24 History Exam Narrative Exam Narrative: Quite sleepy - difficult to awaken Const General: cooperative and frail appearing Neck Neck: supple Resp Effort & Inspection: normal respiratory effort Auscultation: clear to auscultation bilaterally Cardio Rate: regular rate Rhythm: regular rhythm Other: suprapubic tube in place Neuro General: patient alert and patient awake Results Last Vital Signs Temp 36.6 C 04/07/24 06:35 Pulse 67 04/07/24 06:35 Resp 15 04/07/24 06:35 BP 89/63 L 04/07/24 06:35 Pulse Ox 93 04/07/24 06:35 Time Spent Time spent with Patient: <40 minutes Time was spent: other
[2024-04-07] MEDS: Normal Saline-STERILE FIELD 0.9% 10 ML SYR ×2 (08:00)
[2024-04-07] MEDS: Normal Saline Flush 10 ML SYR IV (08:00)
[2024-04-07] MEDS: Lactated Ringers 1,000 ML 80 ML IV (08:05)
[2024-04-07] MEDS: cefTRIAXone 1 GM/50 ML BAG IVPB (08:31)
[2024-04-07] MEDS: Omnipaque 300 MG/ML 50 ML BTL (09:00)
[2024-04-07] MEDS: Lidocaine 2% Jelly 11 ML SYR (09:00)
--- NOTE | 2024-04-07 09:15 | DI.RAD_ITS ---
Exam(s) XR RETROGRADE IN OR EXAM: XR RETROGRADE IN OR CLINICAL HISTORY: Right kidney stone. TECHNIQUE: 2D digital imaging was performed. COMPARISON: No exams were available for comparison FINDINGS: Fluoroscopy provided during retrograde urologic procedure. See procedure report for details. Total fluoroscopy time 13.2 seconds IMPRESSION: Radiation exposure index/cumulative dose:fletcher De La Torre= 2.6 mGy DATA REPOSITORY: RADIATION DOSE DELIVERED:
--- NOTE | 2024-04-07 09:20 | W.PM.OP ---
Date of service: 04/07/24 Time of Service: 09:20 Operative Note Operative Note DATE OF PROCEDURE: 04/07/24 PRE-OP DIAGNOSIS: right kidney stone POST-OP DIAGNOSIS: same retained foreign body PROCEDURE: Cystoscopy, right retrograde pyelogram, right flexible ureteroscopy with extraction of foreign body SURGEON: Ady Molina ANESTHESIA TYPE: Local By Surgeon and General LMA/ETT Refer to Anesthesia Record ESTIMATED BLOOD LOSS: 5 PATHOLOGY: none sent COMPLICATIONS: None Patient was transported to: PACU Patient's condition: stable Implants: none Indications: This is a 58-year-old gentleman who has a history of a neurogenic bladder due to a spinal injury. He has a chronic indwelling suprapubic catheter. He has had issues with kidney, ureteral and bladder stones as well as urosepsis. He recently had a hospitalization for a Proteus infection. As part of his evaluation, a CT demonstrated a foreign body within the right kidney. He has received antibiotics and he presents now for ureteroscopy and treatment of any stones/foreign bodies that remain in the right kidney. Findings: Small fragment of guidewire with adherent stone particles in upper pole calyx Procedure Description: The patient was given antibiotics and brought to the operating room on 04/07/2024. After successful induction of general anesthesia, he was placed in the dorsal lithotomy position. His genitalia was prepped and draped. Initially, his suprapubic catheter was clamped. 2% Xylocaine jelly was instilled into the urethra to act as a local anesthetic. A 22 Mongolian rigid cystoscope was passed through the urethra into the bladder. The bladder was inspected with a 30 degree lens. Both ureteral orifices were identified. There was quite a bit more edema around the right orifice compared to the left. The right orifice was cannulated with a 5 Mongolian access catheter. Once the catheter was placed, the suprapubic tube was unclamped. A retrograde pyelogram was obtained by injecting Omnipaque through the access catheter under fluoroscopic guidance. A short segment of the wire was identified in the upper pole calyx. I then passed a new guidewire through the lumen of the access catheter and removed the catheter. I passed a dual-lumen catheter and positioned a second wire up the ureter. We chose one of the wires as a working wire and the other as a safety wire. I then passed a ureteral access sheath over the working wire and removed the working wire. I passed a flexible ureteroscope up the access catheter and inspected the upper pole calyx. The short segment of wire was identified. There were a few small stones adherent to the wire. The wire was grasped and a 0 tip stone basket and removed. I then withdrew the safety wire down into the ureter and inspected each of the calyces with my flexible ureteroscope. I found no additional foreign body material within the kidney. There were few small stone fragments in the upper pole calyx, but these fragments were small enough that I did not believe they needed additional holmium laser treatment. The access catheter was withdrawn as I withdrew the flexible ureteroscope. No foreign body was seen within the ureter. All scopes and equipment were then removed. The patient tolerated the procedure well with no complications.
--- NOTE | 2024-04-07 10:23 | W.ANESPOSTOP ---
Postoperative Evaluation Date, Time and Location Date Performed: 04/07/24 Time Performed: 10:23 Patient Location: Day Surgery Unit Vital Signs Most Recent Imported Vital Signs: Most Recent Vital Signs Temp Pulse Resp BP Pulse Ox 36.5 C 60 11 L 78/59 L 91 L 04/07/24 10:18 04/07/24 10:18 04/07/24 10:18 04/07/24 10:18 04/07/24 10:18 Pain Score Most Recent Pain Score: Most Recent Pain Score Pain Level 0 04/07/24 10:18 Assessment Mental Status: Arousable with meaningful communication (Has been a little more sleepy this morning (preop), is arousable to voice and is appropriate. ) Airway and Respiratory Function: Patent airway with normal (patient baseline) respiratory exam Cardiovascular Function: Hemodynamically Stable (to baseline) and Receiving care as an inpatient Hydration Status: Adequately Hydrated Nausea & Vomiting: No Nausea or Vomiting Pain: Pt. Denies Any Pain Peripheral Nerve Block: Patient did not receive a nerve block
[2024-04-07] MEDS: Lactated Ringers 1,000 ML 100 ML IV (11:49)
[2024-04-07] MEDS: Lactobacillus Acidophilus CAP 1 CAP PO ×2 (14:06→19:58)
[2024-04-07] MEDS: ceFAZolin 1 GM/50 ML BAG IVPB ×2 (14:06→22:30)
[2024-04-07] MEDS: Normal Saline Flush 10 ML SYR IVP ×2 (14:06→20:05)
[2024-04-07] MEDS: Pregabalin 25 MG CAP PO ×2 (14:07→20:01)
[2024-04-07] MEDS: Baclofen 10 MG TAB 20 MG PO (14:07)
[2024-04-07] MEDS: LORazepam 1 MG TAB PO ×2 (14:07→20:03)
[2024-04-07] MEDS: Docusate Sodium 100 MG CAP PO ×2 (14:07→19:58)
[2024-04-07] MEDS: Baclofen 10 MG TAB 40 MG PO (14:58)
[2024-04-07] MEDS: Senna TAB 2 TAB PO (19:57)
[2024-04-07] MEDS: Baclofen 10 MG TAB 60 MG PO (19:59)
[2024-04-07] MEDS: QUEtiapine 100 MG TAB PO (20:01)
[2024-04-07] MEDS: traZODone 50 MG TAB PO (20:02)
[2024-04-07] MEDS: Divalproex Sodium 500 MG TAB.ER.24H PO (20:02)
[2024-04-07] MEDS: Magnesium Chloride 64 MG TABCR 128 MG PO (20:03)
[2024-04-07] MEDS: Ascorbic Acid 500 MG TAB 250 MG PO (20:04)
[2024-04-08] MEDS: Lactated Ringers 1,000 ML 100 ML IV (00:49)
[2024-04-08 04:27] VITALS: BP 90/61; PULSE 77; RESP 18; TEMP 36.5; O2SAT 94
[2024-04-08] MEDS: ceFAZolin 1 GM/50 ML BAG IVPB (06:06)
--- NOTE | 2024-04-08 07:17 | W.PM.DS.N ---
Date of service: 04/08/24 Time of Service: 07:17 DS: Diagnosis Discharge Diagnosis (1) Ureteral stone: (2) Neurogenic bladder: (3) Foreign body in kidney: Status: Acute Discharge Plan Disposition Patient Disposition: Home Condition: Stable Discharge Details Reason For Visit: foreign body in kidney Admit Date/Time: 04/07/24 09:19 Admit Provider: Ady Molina Attending Provider: Ady Molina Primary Care Provider: Genevieve Baez Hospital Course Hospital Course: The patient was admitted and brought to the operating room on 04/07/2024. From his previous imaging that was done down at [facility] [place], it was uncertain if there was a retained wire, a retained portion of stent or a stone cast in the shape of a stent remaining in the right kidney. At the time of ureteroscopy, we identified the distal and of an angled tipped flexible guidewire. The wire was extracted successfully using a stone basket. The patient remained in the hospital overnight for IV for antibiotics. He remained afebrile. He is being discharged to home on postoperative day #1. Home Meds and New Rx's Prescriptions: Continued diclofenac sodium [Voltaren Arthritis Pain] 1 % gel 4 g topical QID PRN (Reason: muscle pain) Qty: 100 5RF Rx Instructions: apply to painful muscles ascorbic acid (vitamin C) 250 mg tablet 250 mg PO BID Qty: 180 11RF divalproex [Depakote ER] 500 mg tablet extended release 24 hr 500 mg PO BID Qty: 60 8RF quetiapine 100 mg tablet 100 mg PO QHS Qty: 90 4RF trazodone 100 mg tablet 50 mg PO QHS Qty: 90 6RF Hold Instructions: Resume on 01/30/24. baclofen 20 mg tablet 60 mg PO TID docusate sodium [Col-Rite] 100 mg capsule 100 mg PO TID mirabegron [Myrbetriq] 25 mg tablet extended release 24 hr 25 mg PO DAILY pantoprazole [Protonix] 40 mg tablet,delayed release (DR/EC) 40 mg PO DAILY Patient Comments: not on list pregabalin [Lyrica] 25 mg capsule 25 mg PO TID sennosides [Senokot] 8.6 mg tablet 17.2 mg PO BID lorazepam [Ativan] 1 mg tablet 1 mg PO .COMPLEX MDD 5mg PRN (Reason: anxiety) Qty: 150 2RF Rx Instructions: 1 mg orally TID and 2 additional tabs PRN PRN; sildenafil [Viagra] 100 mg tablet 100 mg PO DAILY PRN (Reason: sexual activity) Rx Instructions: administer 30 minutes to 4 hours before activity. Call Favio for credit card number. He knows its self pay cholecalciferol (vitamin D3) [Vitamin D3] 25 mcg (1,000 unit) tablet 1,000 units PO DAILY melatonin 10 mg capsule 10 mg PO HS PRNQty: 10 0RF acetaminophen [Tylenol] 325 mg tablet 650 mg PO Q6H PRN PRN (Reason: fever or pain) Qty: 30 0RF Lactobacillus acidoph-L.bulgar [Floranex] 1 million cell tablet 1 tab PO TID Qty: 90 0RF magnesium chloride [Mag-Delay] 64 mg tablet,delayed release (DR/EC) 128 mg PO BID Adults 50 Plus 0.4 mg-300 mcg- 250 mcg tablet 1 tab PO DAILY tamsulosin 0.4 mg capsule 0.4 mg PO DAILY Discontinued naloxone [Narcan] 4 mg/actuation spray,non-aerosol 4 mg intranasal Q2M PRN (Reason: opioid overdose) Qty: 2 4RF Rx Instructions: spray 1 dose into ONE nostril; alternate nostrils w each dose until help arrives nystatin 100,000 unit/gram powder 1 applic topical BID Qty: 60 4RF sulfamethoxazole-trimethoprim [Bactrim DS] 800-160 mg tablet 2 tab PO BID Qty: 120 0RF Rx Instructions: rx by Dr Baez ipratropium-albuterol 0.5 mg-3 mg(2.5 mg base)/3 mL solution for nebulization 3 ml inhalation Q4H PRN Patient Comments: pt reports he does not have one cephalexin 500 mg capsule 500 mg PO TID Qty: 21 0RF cefadroxil 500 mg capsule 500 mg PO DAILY Patient Comments: TAKE 2 CAPSULES BY MOUTH TWICE DAILY FOR 14 DAYS THEN 1 CAPSULE TWICE DAILY UNTIL UROLOGY PROCEDURE Discharge Instructions Additional Instructions: Follow-up in 6 to 8 weeks renal ultrasound. Activity:: Activity as Tolerated Equipment/Supplies:: Suprapubic tube to gravit Diet:: As Tolerated Discharge Orders Discharge Orders: Discharge Order (Routine); Ordered 04/08/24 Ordered By: Ady Molina DS: Summary Time Spent with Patient providing and/or coordinating discharge services: Less than 30 minutes Status at Discharge Functional status at discharge: wheelchair bound Overall status at discharge: patient is back to baseline Mental Status: mental status grossly normal Speech and Movement: speech and movement normal Mood: congruent mood Affect: normal affect Quality:SDOH Health Related Social Needs: No Data to Display Exam Narrative Exam Narrative: On the morning of discharge, appear septic or toxic Vital signs are documented elsewhere His chest wall motion is normal. He is not short of breath at rest. His abdomen is soft. There is stool coming from the colostomy. His suprapubic tube is draining clear urine He is awake and alert Psych Mental Status: mental status grossly normal Speech and Movement: speech and movement normal Mood: congruent mood Affect: normal affect DS: Data Vitals/I&O Vitals and I&O: Vital Signs Temperature 36.5 C 04/08/24 04:27 Temperature Source Tympanic 04/08/24 04:27 Pulse 77 04/08/24 04:27 Pulse Rhythm Regular 04/07/24 20:36 Pulse 58 L 04/07/24 10:22 Respiratory Rate 18 04/08/24 04:27 Respiratory Effort Normal, Non-Labored 04/07/24 20:36 Respiratory Depth Normal 04/07/24 20:36 Respiratory Pattern Normal 04/07/24 20:36 Blood Pressure 90/61 L 04/08/24 04:27 Blood Pressure Mean 65 04/07/24 10:21 Pulse Oximetry 94 04/08/24 04:27 Respiratory End-tidal CO2 35 04/07/24 10:18 Oxygen Delivery Method Room Air 04/08/24 04:27 Oxygen Flow Rate 0 04/08/24 04:27 Pain Level 0 04/08/24 04:27 Comment MAP 71 04/08/24 04:27 Intake & Output 04/07/24 04/07/24 04/08/24 11:59 23:59 11:59 Intake Total 850 / 2370 1520 / 2370 621 / 621 Output Total 1000 / 1000 300 / 300 Balance 850 / 1370 520 / 1370 321 / 321 Weight 85.7 kg Intake: IV 850 / 2150 1300 / 2150 Oral 220 / 220 621 / 621 Output: Urine 1000 / 1000 300 / 300 Other: Urine Color Yellow Pale Yellow Urine Appearance Sediment Clear Clear Comment suprapubic pereyra emptied. Emesis Description None PFSH All Active Problems (Updated 04/08/24 @ 07:18 by Ady Molina MD) Foreign body in kidney (Acute) Insomnia (Acute) Enterococcus faecalis infection (Acute) Thrombocytopenia (Chronic) Anemia (Chronic) Advance care planning (Acute) Erectile disorder (Acute) Right shoulder pain (Acute) Abrasion of foot, right (Acute) Urinary tract infection (Acute) History of UTI (Acute) Palliative care patient (Acute) Neck pain (Acute) Decubitus skin ulcer (Acute) Constipation due to neurogenic bowel (Acute) Chronic recurrent multifocal osteomyelitis (Chronic) Acute osteomyelitis of sacrum (Chronic) Major depressive disorder (Chronic) Quadriplegia (Chronic) Medical History Confusion Ureteral stone High blood pressure determined by examination Acute on chronic anemia Atelectasis Bilateral pneumonia Urinary tract infection Insomnia Discharge planning issues DVT prophylaxis Anxiety disorder Neurogenic bladder Muscle spasm Bladder stones Bronchospasm Insomnia Weight gain DIAMOND (acute kidney injury) Low magnesium level Open wound of abdominal wall Encounter for wound care Visit for wound check Right arm pain Malnutrition following gastrointestinal surgery Large bowel obstruction Iron deficiency anemia Aspiration into airway Ileus Neurogenic bowel Physician orders for life-sustaining treatment (POLST) form indicates patient wish for eg-igf-irfczjlliqy status DNR (do not resuscitate) Decubitus ulcer of buttock, stage 4 H/O deep venous thrombosis DVT (deep venous thrombosis) Constipation Fall down embankment Hypotension Acute embolism and thrombosis of deep vein of right lower extremity Fusion of spine Dislocation of C6/C7 cervical vertebrae C. difficile colitis Surgical History History of infusaport central venous catheter insertion Suprapubic catheter S/P colostomy Social History Smoking/Tobacco Use Status: Never Smoking risk assessment performed?: Yes Alcohol Intake: current Alcohol Intake frequency: holidays/special occasions only Drug use: Occasionally Substance use type: other Details: CBD pen Housing: house Additional Social history: Lives with caregivers Annamarie Regla & Jovanny Schafer Time Spent with Patient Time Spent with Patient: <45 minutes Time was spent: other
[2024-04-08 07:27] VITALS: BP 94/70; PULSE 75; RESP 18; TEMP 36.5; O2SAT 95
[2024-04-08] MEDS: Ascorbic Acid 500 MG TAB 250 MG PO (08:10)
[2024-04-08] MEDS: Pregabalin 25 MG CAP PO (08:10)
[2024-04-08] MEDS: Magnesium Chloride 64 MG TABCR 128 MG PO (08:11)
[2024-04-08] MEDS: Baclofen 10 MG TAB 60 MG PO (08:11)
[2024-04-08] MEDS: Pantoprazole 40 MG TABCR PO (08:12)
[2024-04-08] MEDS: Mirabegron 25 MG TABCR PO (08:12)
[2024-04-08] MEDS: LORazepam 1 MG TAB PO (08:12)
[2024-04-08] MEDS: Lactobacillus Acidophilus CAP 1 CAP PO (08:13)
[2024-04-08] MEDS: Senna TAB 2 TAB PO (08:13)
[2024-04-08] MEDS: Multivitamin w/Minerals TAB 1 TAB PO (08:13)
[2024-04-08] MEDS: Cholecalciferol (Vitamin D3) 1,000 UNIT TAB 1000 UNITS PO (08:13)
[2024-04-08] MEDS: Docusate Sodium 100 MG CAP PO (08:13)
[2024-04-08] MEDS: Divalproex Sodium 500 MG TAB.ER.24H PO (08:13)
[2024-04-08] MEDS: Tamsulosin 0.4 MG CAPCR PO (08:14)
--- NOTE | 2024-04-08 15:25 | PDOC.CMIN ---
Date of service: 04/08/24 Time of Service: 15:25 Care Management Initial Assmt Initial Assessment Reason for Hospitalization: foreign body in kidney Functional Status/Living Situation Patient Presentation: Favio was sitting up in bed when CM met with him. He was in good spirits and engaged well with CM, well known to him from previous hospitalizations. Favio shared that he is staying in a new [facility] home in [place] and he likes it very much. He gets along well with the staff and likes his large, bright room. Favio was admitted overnight for a cysto and pyelogram with removal of a foreign body. He will be discharged home later today with a resumption of home health services. Town of Residence: [place] Resides with: Other ([facility] home with one other client and caregivers.) Significant Other/Family: Local Caregiver/Guardian: daughter Luz Velasquez, JUD Natural Supports: children, parents, friends Employment Status: Disabled Instrumental Activities of Daily Living (ADLs): Requires support (Favio is a quadroplegic) with Dishes/food prep, Carbon Setter, Groceries, Laundry and Transportation Activities/Hobbies/SocialSupport: TV, movies and music Medications Medication Management: No Issues/Barriers identified Physical Functioning/Mobility Assistive Device: total care Hospital bed, wheelchair, christa lift [employer] home Advance Directives Advance Directives: Do you have an Advance Directive: N 10/12/23 12:53 AD On File at [facility]: N 10/12/23 12:53 Date Asked 04/07/24 04/07/24 10:41 AD Date Reviewed COLST On File at [facility] Yes 10/12/23 12:53 COLST Date Scanned 10/14/22 10/12/23 12:53 Code Status DNR/DNI Insurance Coverage/Financial Issues Insurance: Medicare Medicaid ACO Member: No Care Team Visit Care Team Role Provider Type Genevieve Baez Primary Care Provider NON-[facility] STAFF PHYSICIAN Ady Molina MD Admit Provider [facility] STAFF PHYSICIAN Attending Provider Discharge Potential Discharge Needs: PCP F/U Appt and Surgical F/U Appt (urology) Anticipated Barriers to Discharge: None Identified Patient/Family Education Needs: Review discharge instructions, discuss Ask Me Three Transportation: [facility] (W/C van) [facility] Transportation: Wheel chair van Plan: Favio will be discharged home with a resumption of home health services. He will follow up with his community providers and plan of care and transport via [facility] W/C van coordinated by [facility] All Active Problems (Updated 04/08/24 @ 07:18 by Ady Molina MD) Foreign body in kidney (Acute) Insomnia (Acute) Enterococcus faecalis infection (Acute) Thrombocytopenia (Chronic) Anemia (Chronic) Advance care planning (Acute) Erectile disorder (Acute) Right shoulder pain (Acute) Abrasion of foot, right (Acute) Urinary tract infection (Acute) History of UTI (Acute) Palliative care patient (Acute) Neck pain (Acute) Decubitus skin ulcer (Acute) Constipation due to neurogenic bowel (Acute) Chronic recurrent multifocal osteomyelitis (Chronic) Acute osteomyelitis of sacrum (Chronic) Major depressive disorder (Chronic) Quadriplegia (Chronic) Medical History Confusion Ureteral stone High blood pressure determined by examination Acute on chronic anemia Atelectasis Bilateral pneumonia Urinary tract infection Insomnia Discharge planning issues DVT prophylaxis Anxiety disorder Neurogenic bladder Muscle spasm Bladder stones Bronchospasm Insomnia Weight gain DIAMOND (acute kidney injury) Low magnesium level Open wound of abdominal wall Encounter for wound care Visit for wound check Right arm pain Malnutrition following gastrointestinal surgery Large bowel obstruction Iron deficiency anemia Aspiration into airway Ileus Neurogenic bowel Physician orders for life-sustaining treatment (POLST) form indicates patient wish for [id number] status DNR (do not resuscitate) Decubitus ulcer of buttock, stage 4 H/O deep venous thrombosis DVT (deep venous thrombosis) Constipation Fall down embankment Hypotension Acute embolism and thrombosis of deep vein of right lower extremity Fusion of spine Dislocation of C6/C7 cervical vertebrae C. difficile colitis Surgical History History of infusaport central venous catheter insertion Suprapubic catheter S/P colostomy Social History Smoking/Tobacco Use Status: Never Smoking risk assessment performed?: Yes Alcohol Intake: current Alcohol Intake frequency: holidays/special occasions only Drug use: Occasionally Substance use type: other Details: CBD pen Housing: house Additional Social history: Lives with caregivers Annamarie Arauz & Jovanny Schafer [facility](Care Management) Screening Will the Patient Participate in the Screening?: Declined to provide
== END 2024-04-08 11:07 | disposition home or self-care (01) ==
LOC: MS 10:41
PROVIDERS: Admitting Provider Urology; PCP Family Medicine; Visit Provider Urology
PROC: (CPT 52352; principal; 2024-04-07 07:30)
DX: N20.0 Calculus of kidney (principal); N31.9 Neuromuscular dysfunction of bladder, unspecified; Z87.440 Personal history of urinary (tract) infections
CPT/HCPCS: 52352; 96361; 96365; 96366; 99222; 99238; 74420; G0378; J0690; J0696; J1100; J2001; J2371; J2405; J2704; J3490; Q9967

== ENCOUNTER 2024-07-11 21:03 | Outpatient (REF) | payer MEDICARE, MEDICAID, SELFPAY ==
[2024-07-11 16:18] LABS: Bilirubin Negative (Negative); Blood Trace-intact (Negative); Clarity Cloudy (Clear); Glucose Negative (Negative); Ketones Negative (Negative); Leukocyte Esterase Small (Negative); Nitrite Negative (Negative); Urobilinogen 0.2 mg/dL (Up to 0.2); pH 6.5 (5-8)
[2024-07-11 16:25] LABS: C & S Indicated? C&S Done As Ordered; WBC >50 HPF (0-5)
== END 2024-07-11 21:04 | disposition home or self-care (01) ==
LOC: LBN 21:03
PROVIDERS: PCP Family Medicine; Visit Provider Family Medicine
DX: A41.9 Sepsis, unspecified organism (principal); B96.5 Pseudomonas (aeruginosa) (mallei) (pseudomallei) as the cause of diseases classified elsewhere
CPT/HCPCS: 87077; 81003; 81015; 87086; 87186

== ENCOUNTER 2024-07-22 14:56 | Outpatient (REF) | payer MEDICARE, MEDICAID, SELFPAY ==
[2024-07-22 14:04] LABS: VALPROIC ACID 37.1 ug/mL
--- OUTSIDE RECORDS SUMMARY | 2024-07-22 14:58 | XMS_ITS | Continuity of Care Document ---
Author Organization [facility] Address [address] [place] [id number] Care Team Providers Care Shipfitter Name Role Phone Genevieve Baez Primary Care Physician Encounter [facility] [id number] Date(s): 07/05/24 - 07/05/[address] Encounter Diagnosis Laceration of foot without foreign body(Discharge Diagnosis) - 07/05/24 Discharge Disposition: Home or Self Care Attending Physician: Twin Chaves MD Admitting Physician: Twin Chaves MD Referring Physician: Genevieve Baez Allergies, Adverse Reactions, Alerts No Known Medication Allergies Assessment and Plan Future Scheduled Tests Radiology* XR Chest 1 View 06/26/24 Immunizations Given and Recorded Vaccine Date Status Refusal Reason tetanus/diphth/pertuss (Tdap) adult/adol 07/05/24 Given Medications acetaminophen 325 mg oral capsule 650 mg = 2 cap, Oral, every 6 hr, PRN as needed for fever, # 20 cap, 0 Refill(s) Start Date: 12/13/23 Status: Ordered cephalexin 500 mg oral capsule 500 mg = 1 cap, Oral, QID, X 5 days, # 20 cap, 0 Refill(s), 07/10/24 1:53:00 PM CDT, Pharmacy: [id number], 187.96, cm, 07/05/24 14:20:00 EDT, Height, 81.65, kg, 07/05/24 14:26:00 EDT, WeightDosing Start Date: 07/05/24 Stop Date: 07/10/24 Status: Ordered divalproex sodium 250 mg oral tablet, extended release 750 mg = 3 tab, Oral, BID, # 180 tab, 0 Refill(s), Pharmacy: [id number], 188, cm, 06/30/24 8:01:00 EDT, Height, 90.5, kg, 06/22/24 5:53:00 EDT, Weight Dosing Start Date: 06/30/24 Status: Ordered Doculase 100 mg oral capsule 100 mg = 1 cap, Oral, TID, PRN as needed for constipation, # 20 cap, 0 Refill(s) Start Date: 12/13/23 Status: Ordered Floranex oral tablet 1 tab, Oral, TID, 0 Refill(s) Start Date: 10/24/23 Status: Ordered LORazepam 0.5 mg oral tablet 0.5 mg = 1 tab, Oral, BID, 0 Refill(s) Start Date: 06/30/24 Status: Ordered LORazepam 1 mg oral tablet 1 mg = 1 tab, Oral, BID, PRN as needed for anxiety, 0 Refill(s) Start Date: 06/20/24 Status: Ordered melatonin 10 mg oral tablet 10 mg = 1 tab, Oral, every night at bedtime, PRN as needed for insomnia, # 200 tab, 0 Refill(s) Start Date: 06/20/24 Status: Ordered Multi Vitamin+ 1 tab, Oral, Daily, 0 Refill(s) Start Date: 10/24/23 Status: Ordered Myrbetriq 25 mg oral tablet, extended release 25 mg = 1 tab, Oral, Daily, do not crush or chew, # 30 tab, 0 Refill(s) Start Date: 10/24/23 Status: Ordered naloxone 4 mg/0.1 mL nasal spray 1 sprays, Nostril-Both, As Directed, PRN overdose, use one spray in one nostril. if an additional dose is needed, alternate nostril, # 2 EA, 0 Refill(s) Start Date: 06/20/24 Status: Ordered pregabalin 25 mg oral capsule 25 mg = 1 cap, Oral, TID, 0 Refill(s) Start Date: 12/13/23 Status: Ordered senna 17.2 mg =, Oral, Daily, 0 Refill(s) Start Date: 10/24/23 Status: Ordered tamsulosin 0.4 mg oral capsule 0.4 mg = 1 cap, Oral, every night at bedtime, 0 Refill(s) Start Date: 12/12/23 Status: Ordered traZODone 50 mg oral tablet 2 tabs, Oral, every night at bedtime, 0 Refill(s) Start Date: 12/13/23 Status: Ordered Vitamin C 250 mg =, Oral, BID, 0 Refill(s) Start Date: 10/24/23 Status: Ordered Vitamin D3 1000 intl units oral tablet 25 mcg = 1 tab, Oral, Daily, # 30 tab, 0 Refill(s) Start Date: 12/13/23 Status: Ordered Voltaren 1% topical gel 1 maria e, Topical, QID, PRN pain, # 100 g, 0 Refill(s) Start Date: 12/13/23 Status: Ordered ZyPREXA 5 mg oral tablet 5 mg = 1 tab, Oral, every night at bedtime, # 30 tab, 0 Refill(s), Pharmacy: [id number],188, cm, 06/30/24 8:01:00 EDT, Height, 90.5, kg, 06/22/24 5:53:00 EDT, Weight Dosing Start Date: 06/30/24 Status: Ordered Mental Status 07/05/24 Eye Opening Response [place] Spontaneous ly Best Verbal Response Joleen Oriented Best Motor Response [place] Obeys comman ds [place] Coma Score 15 Problem List Condition Confirmation Course Effective Dates Status Health St atus Informant Acute UTI (urinary tract infection) Confirmed Active Chronic incomplete paraplegia Confirmed Active Paraplegia Confirmed Active 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 Active Urinary tract infection Confirmed Active Results Radiology Reports * Exam Date Time Procedure Performing Provider Status 07/05/24 2:33 PM XR Foot Complete 3+ Views Right Shruti Richardson (Verified) Notes: (XR Foot Complete 3+ Views Right) Reason For Exam: foot trauma, paraplegia, split between 4th and 5th toe XR Foot Complete 3+ Views Right EXAMINATION: XR Foot Complete 3+ Views Right CLINICAL HISTORY: foot trauma, paraplegia, split between 4th and 5th toe TECHNIQUE: 3 COMPARISON: None FINDINGS: Severe bone mineralization of the entire foot and ankle, limits evaluation of the subtle fractures or erosion There appears to be defect in distal 5th metatarsal as well as the proximal 5th proximal phalange of indeterminate chronicity for favored to be chronic. Flexion deformities of toes, limits evaluation of phalanges. Diffuse soft tissue swelling of the foot. No soft tissue gas. IMPRESSION: 1. No acute osseous finding within limitation of advanced demineralization. 2. Truncated distal 5th metatarsal as well as the proximal portion of 5th proximal phalange of indeterminate chronicity however favored to be chronic. This could be sequela of prior infection, posttraumatic or postsurgical 3. Diffuse of tissue swelling. Thank you for letting us participate in the care of this patient. If you are a health care provider and have any questions regarding this report, please contact the number below. For patients who have questions please contact the health medicare specialist that requested your imaging first. Electronically signed by: Dann Estes MD, [facility] ([phone]), at 07/05/2024 2:48 PM Final Dictated by: Inocencio Yu Dictated DT/TM: 07/05/2024 2:53 pm Signed by: Aimee, Generated Signed (Electronic Signature): 07/05/2024 2:33 pm Transcribed by: TIMUR Vital Signs Most recent to oldest [Reference Range]: 1 Peripheral Pulse Rate [60-100 bpm] 87 bp m (07/05/24 2:20 PM) Respiratory Rate [12-24 br/min] 18 br/mi n (07/05/24 2:20 PM) Blood Pressure [90-140/60-90 mmHg] 102/6 4mmHg (07/05/24 2:20 PM) Weight Dosing 81.650 kg (07/05/24 2:20 PM) Body Mass Index 23.11 kg/m2 (07/05/24 2:20 PM) Height 187.96 cm (07/05/24 2:20 PM) Weight 81.65 kg (07/05/24 2:20 PM) Social History Social History Type Response Smoking Status Smoking tobacco use: Never tobacco user;Not obtained due to cognitive impairment entered on: 03/28/24 Sex Male Hospital Discharge Instructions Patient Education 07/05/2024 13:55:31 Laceration Care, Adult Laceration Care, Adult A laceration is a cut that may go through all layers of the skin and into the tissue that is right under the skin. Some lacerations heal on their own. Others need to be closed with stitches (sutures), sharla, skin adhesive strips, or skin glue. Proper care of a laceration reduces the risk for infection, helps the laceration heal better, and may prevent scarring. General tips ??? Keep the wound clean and dry. ??? Do not scratch or pick at the wound. ??? Wash your hands with soap and water for at least 20 seconds before and after touching your wound or changing your bandage (dressing). If soap and water are not available, use hand pulvi mixer operator. ??? Do not usedisinfectants or antiseptics, such as rubbing alcohol, to clean your wound unless told by your health care provider. ??? If you were given a dressing, you should change it at least once a day, or as told by your health care provider. You should also change it if it becomes wet or dirty. How to care for your laceration If sutures or sharla were used: ??? Keep the wound completely dry for the first 24 hours, or as told by your health care provider. After that time, you may shower or bathe. Do not soak your wound in water until after the sutures orstaples have been removed. ??? Clean the wound once each day, or as told by your health care provider. To do this: ??? Wash the wound with soap and water. ??? Rinse the wound with water to remove all soap. ??? Pat the wound dry with a clean towel. Do not rub the wound. ??? After cleaning the wound, apply a thin layer of antibiotic ointment, other topical ointments, or a non-adherent dressing as told by your health care provider. This will help prevent infection andkeep the dressing from sticking to the wound. ??? Have the sutures or sharla removed as told by your health care provider. Do not remove suturesor sharla yourself. If skin adhesive strips were used: ??? Do not get the skin adhesive strips wet. You may shower or bathe, but keep the wound dry. ??? If the wound gets wet, pat it dry with a clean towel. Do not rub the wound. ??? Skin adhesive strips fall off on their own. If adhesive strip edges start to loosen and curl up, you may trim the loose edges. Do not remove adhesive strips completely unless your health care provider tells you to do that. If skin glue was used: ??? You may shower or bathe, but try to keep the wound dry. Do not soak the wound in water. ??? After showering or bathing, pat the wound dry with a clean towel. Do not rub the wound. ??? Do not do any activities that will make you sweat a lot until the skin glue has fallen off. ??? Do not apply liquid, cream, or ointment medicine to the wound while the skin glue is in place. Doing this may loosen the film before the wound has healed. ??? If a dressing is placed over the wound, do not apply tape directly over the skin glue. Doing this may cause the glue to be pulled off before the wound has healed. ??? Do not pick at the glue. Skin glue usually remains in place for 5???10 days and then falls off the skin. Follow these instructions at home: Medicines ??? Take [id number] and prescription medicines only as told by your health care provider. ??? If you were prescribed an antibiotic medicine or ointment, take or apply it as told by your health care provider. Do not stop using it even if your condition improves. Managing pain and swelling ??? If directed, put ice on the injured area. To do this: ??? Put ice in a plastic bag. ??? Place a towel between your skin and the bag. ??? Leave the ice on for 20 minutes, 2???3 times a day. ??? Remove the ice if your skin turns bright red. This is very important. If you cannot feel pain, heat, or cold, you have a greater risk of damage to the area. ??? Raise (elevate) the injured area above the level of your heart while you are sitting or lying down for the first 24???48 hours after the laceration is repaired. General instructions ??? Avoid any activity that could cause your wound to reopen. ??? Check your wound every day for signs of infection. Watch for: ??? More redness, swelling, or pain. ??? Fluid or blood. ??? Warmth. ??? Pus or a bad smell. ??? Keep all follow-up visits. This is important. Contact a health care provider if: ??? You received a tetanus shot and you have swelling, severe pain, redness, or bleeding at the injection site. ??? Your closed wound breaks open. ??? You have any of these signs of infection: ??? More redness, swelling, or pain around your wound. ??? Fluid or blood coming from your wound. ??? Warmth coming from your wound. ??? Pus or a bad smell coming from your wound. ??? A fever. ??? You notice something coming out of the wound, such as wood or glass. ??? Your pain is not controlled with medicine. ??? You notice a change in the color of your skin near your wound. ??? You need to change the dressing often. ??? You develop a new rash. ??? You have numbness around the wound. Get help right away if: ??? You develop severe swelling around the wound. ??? Your pain suddenly increases and is severe. ??? You develop painful lumps near the wound or on skin anywhere else on your body. ??? You have a red streak going away from your wound. ??? The wound is on your hand or foot, and you cannot properly move a finger or toe. ??? The wound is on your hand or foot, and you notice that your fingers or toes look pale or bluish. Summary ??? A laceration is a cut that may go through all layers of the skin and into the tissue that is right under the skin. ??? Some lacerations heal on their own. Others need to be closed with stitches (sutures), sharla, skin adhesive strips, or skin glue. ??? Proper care of a laceration reduces the risk of infection, helps the laceration heal better, and may prevent scarring. This information is not intended to replace advice given to you by your health care provider. Make sure you discuss any questions you have with your health care provider. Document Revised: 12/26/2021 Document Reviewed: 12/26/2021 [employer] Patient Education ?? 2022 [employer] Follow Up Care 07/05/2024 14:06:43 With:Follow up in Emergency Department Address: When:1 to 2 weeks Comments:Keep area clean dry and covered. ??Change dressing once or twice a day.?? To transit dressing, apply mupirocin cream??then??apply some??Curlex such that??the toes are gently held together.??Give Keflex 500 mg 4 times a day for 5 days. ??First dose of Keflex given here in the ED so the next dose would be dinnertime tonight and then bedtime tonight and then 4 times a day starting tomorrow. ??Try toavoid??lateral stress, in other words stress of separation of the toes,??on the toes of the right foot??so that there is not??stress placed on the suture line.??Return immediately for signs of infection: Redness warmth swelling or increased pain. ??Otherwise return in??10 to 14 days for suture removal.?? 8 sutures were placed. Physician Emergency department Note * Twin Chaves MD: PERFORM Event Display: ED Note Physician Authored Date: [id number] NEWTON BARRIOS JR :1965 Age:59 years Sex:Male Visit Date:07/05/2024 Primary Care Physician: Genevieve Baez Basic Information Time Seen: Twin Chaves MD / 07/05/2024 14:09 Chief Complaint pt arrives from home via EMS due to RT toe laceration History Of Present Illness: This patient??comes in from home because he was wheeling his wheelchair outside to enjoy the nice laurel day but??evidently caught his right foot on the door frame??which??caused a split type laceration to his right foot??dorsally and between the second and third toe.?? For this reason he comes in.?? The patient is sleepy but??easily arousable and his phonation is normal and he is awake alert oriented??and in no distress and gives a negative review of systems. ??This is important because he was just admitted here for??pneumonia UTI and mild sepsis and discharged 5 days ago.?? The patient??is not able to feel pain in the extremity. ??He states that his fifth toe is usually very floppy as a??co nsequence of a previous infection??and indeed on exam his fifth toe??seems to just dangle from/without being tethered by joint.?? However, he has good??usual??resistance to lateral motion of the??second toe from the third toe. ??He states that his tetanus shot??has been more than 10 years ago.?? Hehas no allergies to antibiotics or any other medications either.?? He has no other areas of injury.??He did not fall out of his wheelchair.?? Although he is sleepy,??he also??is easy to wake up and speak to??and as above gives a negative review of systems??in terms of no headache no chest pain no shortness of breath no abdominal pain nausea vomiting Physical Exam Vitals & Measurements HR:??87??(Peripheral)?? RR:??18?? BP:??102/64?? SpO2:??97%?? HT:??187.96??cm?? WT:??81.65??kg?? BMI:??23.11?? O2 Therapy:??Room air?? Medical Decision Making: This patient is given??prophylactic antibiotics and mupirocin.?? He is given a tetanus booster. ??The wound is closed. ??Plain films obtained and by my reading??shows a lack of bone of the distal fifth metatarsal which is the likely??reason??for the untethered feeling of his fifth toe??which the patient states is as a result of a distant infection.?? However, there are no acute fractures of the metatarsals or phalanges??of the foot specifically the second and third toes or metatarsals.?? I closed the wound with 8 interrupted sutures. ??I am prophylaxing with mupirocin as well as Keflex for 5 days for 500 mg 4 times a day.?? I put in the discharge summaries return parameters regarding infection??as well as a note to try do??keep some??medial pressure on the foot or pressure keeping the toes together and not to spread the toes apart.?? Patient will return in 10 to 14 days for suture removal if he does not??return sooner because of possible infection. Procedure There is a skin split??of the dorsum of the foot and area between the second and third toes of the right foot.?? I numbed this up using 1% lidocaine and then I irrigated it copiously with 500 cc of sterile saline??and also rubbed it with sterile gauze. ??I investigated the wound all the way to the bottom and see no tendon tendon sheath joint bone or any other structure besides subcutaneous fat.??I closed the wound with 8 interrupted sutures with good apposition of wound edges and sutures throughout the entirety??of the wound from the dorsum of the foot??through to the??interdigital space No Qualifying Data Assessment/Plan 1.??Laceration of foot without foreign body??S91.319A ??Exploration,??careful cleansing??by irrigation,??wound closure,??tetanus booster,??prophylactic topical and systemic antibiotics, return parameters. Orders: cephalexin 500 mg oral capsule, 500 mg = 1 cap, Oral, QID, X 5 days, # 20 cap, 0 Refill(s), 07/10/24 14:53:00 EDT, Pharmacy: [id number], 187.96, cm, 07/05/24 14:20:00 EDT, Height, 81.65, kg, 07/05/24 14:26:00 EDT, Weight Dosing lidocaine 1% preservative-free injectable solution, 5 mL, Infiltration, Injection, Once, First Dose: 07/05/24 14:51:00 EDT, Stop Date: 07/05/24 14:51:00 EDT, Physician Stop, NOW, 07/05/24 14:51:00 EDT Discharge Patient, 07/05/24 14:52:00 EDT Patient Education Laceration Care, Adult Follow Up With When Contact Information Follow up in Emergency Department Within 1 to 2 weeks Additional Instructions: Keep area clean dry and covered. ??Change dressing once or twice a day.?? To transit dressing, apply mupirocin cream??then??apply some??Curlex such that??the toes are gently held together.? Give Keflex 500 mg 4 times a day for 5 days. ??First dose of Keflex given here in the ED so the next dose would be dinnertime tonight and then bedtime tonight and then 4 times a day starting tomorrow. ? Try to avoid??lateral stress, in other words stress of separation of the toes,??on the toes of the right foot??so that there is not??stress placed on the suture line.? Return immediately for signs of infection: Redness warmth swelling or increased pain. ??Otherwise return in??10 to 14 days for suture removal.?? 8 sutures were placed. Medication Reconciliation New Prescription cephalexin (cephalexin 500 mg oral capsule)1 Capsules Oral (given by mouth) 4 times a day for 5 Days. Refills: 0. ?? Unchanged acetaminophen (acetaminophen 325 mg oral capsule)2 Capsules Oral (given by mouth) every 6 hours as needed as needed for fever. ?? ascorbic acid (Vitamin C)250 Milligrams Oral (given by mouth) 2 times a day. ?? cholecalciferol (Vitamin D3 1000 intl units oral tablet)1 tab Oral (given by mouth) every day. ?? diclofenac topical (Voltaren 1% topical gel)1 Application Topical (on the skin) 4 times a day as needed pain. ?? divalproex sodium (divalproex sodium 250 mg oral tablet, extended release)3 tab Oral (given by mouth) 2 times a day. Refills: 0. ?? docusate (Doculase 100 mg oral capsule)1 Capsules Oral (given by mouth) 3 times a day as needed as needed for constipation. ?? lactobacillus acidophilus and bulgaricus (Floranex oral tablet)1 tab Oral (given by mouth) 3 times a day. ?? LORazepam (LORazepam 0.5 mg oral tablet)1 tab Oral (given by mouth) 2 times a day. ?? LORazepam (LORazepam 1 mg oral tablet)1 tab Oral (given by mouth) 2 times a day as needed as neededfor anxiety. ?? melatonin (melatonin 10 mg oral tablet)1 tab Oral (given by mouth) every night at bedtime as neededas needed for insomnia. ?? mirabegron (Myrbetriq 25 mg oral tablet, extended release)1 tab Oral (given by mouth) every day. donot crush or chew. ?? multivitamin (Multi Vitamin+)1 tab Oral (given by mouth) every day. ?? naloxone (naloxone 4 mg/0.1 mL nasal spray)1 Sprays Nasal (into the nose) - Both Sides As Directed as needed overdose. use one spray in one nostril. if an additional dose is needed, alternate nostril. ?? OLANZapine (ZyPREXA 5 mg oral tablet)1 tab Oral (given by mouth) every night at bedtime. Refills: 0. ?? pregabalin (pregabalin 25 mg oral capsule)1 Capsules Oral (given by mouth) 3 times a day. ?? senna17.2 Milligrams Oral (given by mouth) every day. ?? tamsulosin (tamsulosin 0.4 mg oral capsule)1 Capsules Oral (given by mouth) every night at bedtime. ?? traZODone (traZODone 50 mg oral tablet)2 tabs Oral (given by mouth) every night at bedtime. Problem List/Past Medical History Ongoing Acute UTI (urinary tract infection) Chronic incomplete paraplegia Chronic suprapubic catheter Decubitus ulcer of buttock Morbid obesity Paraplegia Urinary tract infection Historical No qualifying data Medication Administration Given cephalexin, 500 mg, Oral mupirocin 2% topical cream, 1 maria e, Topical tetanus/diphth/pertuss (Tdap) adult/adol 5 units-2.5 units-18.5 mcg/0.5 mL intramuscular suspension, 0.5 mL, Intramuscular Allergies No Known Medication Allergies Social History Electronic Cigarette/Vaping Electronic Cigarette Use: Unknown/not obtained. Tobacco Never tobacco user, Not obtained due to cognitive impairment Tobacco Use:. Diagnostic Results XR Foot Complete 3+ Views Right 07/05/2024 14:54 EDT XR Foot Complete 3+ Views Right ?? 07/05/24 14:33:33 IMPRESSION: 1. No acute osseous finding within limitation of advanced demineralization. 2. Truncated distal 5th metatarsal as well as the proximal portion of 5th proximal phalange of indeterminate chronicity however favored to be chronic. This could be sequela of prior infection, posttraumatic or postsurgical 3. Diffuse of tissue swelling. ? Thank you for letting us participate in the care of this patient. If you are a health care provider and have any questions regarding this report, please contact the number below. For patients who have questions please contact the health medicare specialist that requested your imaging first. ?? Twin Chaves MD Emergency department Discharge instructions * Twin Chaves MD: PERFORM Event Display: ED Discharge Information Authored Date: [id number] NEWTON BARRIOS JR :1965 Age:59 years Sex:Male Visit Date:07/05/2024 Primary Care Physician: Genevieve Baez Discharge Instructions We would like to thank you for allowing us to assist you with your healthcare needs. The following includes patient education materials and information regarding your injury/illness. Diagnosis from Today's Visit Laceration of foot without foreign body Discharge Vitals Heart Rate??(Peripheral) 87 Respiratory Rate?? 18 Blood Pressure?? 102/64?? SpO2?? 97% Height?? 74.00 in (187.96 cm) Weight?? 180.04 lb (81.65 kg) BMI?? 23.11 Allergies No Known Medication Allergies What to Do Next You Need to Schedule the Following Appointments Follow Up with??Follow up in Emergency Department When:??Within 1 to 2 weeks Why: Keep area clean dry and covered. ??Change dressing once or twice a day.?? To transit dressing, apply mupirocin cream??then??apply some??Curlex such that??the toes are gently held together.? Give Keflex 500 mg 4 times a day for 5 days. ??First dose of Keflex given here in the ED so the next dose would be dinnertime tonight and then bedtime tonight and then 4 times a day starting tomorrow. ? Try to avoid??lateral stress, in other words stress of separation of the toes,??on the toes of the right foot??so that there is not??stress placed on the suture line.? Return immediately for signs of infection: Redness warmth swelling or increased pain. ??Otherwise return in??10 to 14 days for suture removal.?? 8 sutures were placed. You were treated today on an emergency basis; it may be shin to contact your primary care provider to notify them of your visit today. You may have been referred to your regular doctor or a specialist, please follow up as instructed. If your condition worsens or you can't get in to see the doctor, contact the Emergency Department. Medications What How Much When Instructions Next Dose New cephalexin (cephalexin 500 mg oral capsule) 1 Capsules Oral (given by mouth) 4 times a day Duration: 5 Days Pickup at [id number] Unchanged acetaminophen (acetaminophen 325 mg oral capsule) 2 Capsules Oral (given by mouth) Every 6 hours as needed for as needed for fever Unchanged ascorbic acid (Vitamin C) 250 Milligrams Oral (given by mouth) 2 times a day Unchanged cholecalciferol (Vitamin D3 1000 intl units oral tablet) 1 tab Oral (given by mouth) Every day Unchanged diclofenac topical (Voltaren 1% topical gel) 1 Application Topical (on the skin) 4 times a day as needed for pain Unchanged divalproex sodium (divalproex sodium 250 mg oral tablet, extended release) 3 tab Oral (given by mouth) 2 times a day Unchanged docusate (Doculase 100 mg oral capsule) 1 Capsules Oral (given by mouth) 3 times a day as needed for as needed for constipation Unchanged lactobacillus acidophilus and bulgaricus (Floranex oral tablet) 1 tab Oral (given by mouth) 3 times a day Unchanged LORazepam (LORazepam 0.5 mg oral tablet) 1 tab Oral (given by mouth) 2 times a day Unchanged LORazepam (LORazepam 1 mg oral tablet) 1 tab Oral (given by mouth) 2 times a day as needed for as needed for anxiety Unchanged melatonin (melatonin 10 mg oral tablet) 1 tab Oral (given by mouth) Every night at bedtime as needed for as needed for insomnia Unchanged mirabegron (Myrbetriq 25 mg oral tablet, extended release) 1 tab Oral (given by mouth) Every day do not crush or chew ?? Unchanged multivitamin (Multi Vitamin+) 1 tab Oral (given by mouth) Every day Unchanged naloxone (naloxone 4 mg/ 0.1 mL nasal spray) 1 Sprays Nasal (into the nose) - Both Sides As Directed as needed for overdose use one spray in one nostril. if an additional dose is needed, alternate nostril ?? Unchanged OLANZapine (ZyPREXA 5 mg oral tablet) 1 tab Oral (given by mouth) Every night at bedtime Unchanged pregabalin (pregabalin 25 mg oral capsule) 1 Capsules Oral (given by mouth) 3 times a day Unchanged senna 17.2 Milligrams Oral (given by mouth) Every day Unchanged tamsulosin (tamsulosin 0.4 mg oral capsule) 1 Capsules Oral (given by mouth) Every night at bedtime Unchanged traZODone (traZODone 50 mg oral tablet) 2 tabs Oral (given by mouth) Every night at bedtime Pharmacy Information [facility] [id number]: [address] [place], [place] [id number] [phone] Education Materials Laceration Care, Adult A laceration is a cut that may go through all layers of the skin and into the tissue that is right under the skin. Some lacerations heal on their own. Others need to be closed with stitches (sutures), sharla, skin adhesive strips, or skin glue. Proper care of a laceration reduces the risk for infection, helps the laceration heal better, and may prevent scarring. General tips ? Keep the wound clean and dry. ? Do not scratch or pick at the wound. ? Wash your hands with soap and water for at least 20 seconds before and after touching your wound orchanging your bandage (dressing). If soap and water are not available, use hand pulvi mixer operator. ? Do not usedisinfectants or antiseptics, such as rubbing alcohol, to clean your wound unless told byyour health care provider. ? If you were given a dressing, you should change it at least once a day, or as told by your health care provider. You should also change it if it becomes wet or dirty. How to care for your laceration If sutures or sharla were used: ? Keep the wound completely dry for the first 24 hours, or as told by your health care provider. After that time, you may shower or bathe. Do not soak your wound in water until after the sutures or sharla have been removed. ? Clean the wound once each day, or as told by your health care provider. To do this: ? Wash the wound with soap and water. ? Rinse the wound with water to remove all soap. ? Pat the wound dry with a clean towel. Do not rub the wound. ? After cleaning the wound, apply a thin layer of antibiotic ointment, other topical ointments, or a non-adherent dressing as told by your health care provider. This will help prevent infection and keep the dressing from sticking to the wound. ? Have the sutures or sharla removed as told by your health care provider. Do not remove sutures or sharla yourself. If skin adhesive strips were used: ? Do not get the skin adhesive strips wet. You may shower or bathe, but keep the wound dry. ? If the wound gets wet, pat it dry with a clean towel. Do not rub the wound. ? Skin adhesive strips fall off on their own. If adhesive strip edges start to loosen and curl up, you may trim the loose edges. Do not remove adhesive strips completely unless your health care provider tells you to do that. If skin glue was used: ? You may shower or bathe, but try to keep the wound dry. Do not soak the wound in water. ? After showering or bathing, pat the wound dry with a clean towel. Do not rub the wound. ? Do not do any activities that will make you sweat a lot until the skin glue has fallen off. ? Do not apply liquid, cream, or ointment medicine to the wound while the skin glue is in place. Doing this may loosen the film before the wound has healed. ? If a dressing is placed over the wound, do not apply tape directly over the skin glue. Doing this may cause the glue to be pulled off before the wound has healed. ? Do not pick at the glue. Skin glue usually remains in place for 5???10 days and then falls off the skin. Follow these instructions at home: Medicines ? Take kgby-sfo-zhkzwou and prescription medicines only as told by your health care provider. ? If you were prescribed an antibiotic medicine or ointment, take or apply it as told by your health care provider. Do not stop using it even if your condition improves. Managing pain and swelling ? If directed, put ice on the injured area. To do this: ? Put ice in a plastic bag. ? Place a towel between your skin and the bag. ? Leave the ice on for 20 minutes, 2???3 times a day. ? Remove the ice if your skin turns bright red. This is very important. If you cannot feel pain, heat, or cold, you have a greater risk of damage to the area. ? Raise (elevate) the injured area above the level of your heart while you are sitting or lying down for the first 24???48 hours after the laceration is repaired. General instructions ? Avoid any activity that could cause your wound to reopen. ? Check your wound every day for signs of infection. Watch for: ? More redness, swelling, or pain. ? Fluid or blood. ? Warmth. ? Pus or a bad smell. ? Keep all follow-up visits. This is important. Contact a health care provider if: ? You received a tetanus shot and you have swelling, severe pain, redness, or bleeding at the injection site. ? Your closed wound breaks open. ? You have any of these signs of infection: ? More redness, swelling, or pain around your wound. ? Fluid or blood coming from your wound. ? Warmth coming from your wound. ? Pus or a bad smell coming from your wound. ? A fever. ? You notice something coming out of the wound, such as wood or glass. ? Your pain is not controlled with medicine. ? You notice a change in the color of your skin near your wound. ? You need to change the dressing often. ? You develop a new rash. ? You have numbness around the wound. Get help right away if: ? You develop severe swelling around the wound. ? Your pain suddenly increases and is severe. ? You develop painful lumps near the wound or on skin anywhere else on your body. ? You have a red streak going away from your wound. ? The wound is on your hand or foot, and you cannot properly move a finger or toe. ? The wound is on your hand or foot, and you notice that your fingers or toes look pale or bluish. Summary ? A laceration is a cut that may go through all layers of the skin and into the tissue that is right under the skin. ? Some lacerations heal on their own. Others need to be closed with stitches (sutures), sharla, skinadhesive strips, or skin glue. ? Proper care of a laceration reduces the risk of infection, helps the laceration heal better, and may prevent scarring. This information is not intended to replace advice given to you by your health care provider. Make sure you discuss any questions you have with your health care provider. Document Revised: 12/26/2021 Document Reviewed: 12/26/2021 [employer] Patient Education ?? 2022 [employer] Tests Performed Radiology XR Foot Complete 3+ Views Right 07/05/2024 14:54 EDT Patient/Client Services Specialist Signature Patient Name:NEWTON BARRIOS JR I have received this information and my questions have been answered. Patient/Client Services Specialist Name: Patient/Client Services Specialist Signature: Relationship to Patient: Witness Name/Signature: Date: Electronically Signed on 07/05/2024 14:55 EDT Twin Chaves MD Patient Care team information Care Team Personnel Name: Genevieve Baez Position: No Access Member Role: Primary Care Physician Address: Address: [address] [place] [phone]- Care Team Related Persons Name: ASTON MORA Name: GISSELLE BARRIOS
--- OUTSIDE RECORDS SUMMARY | 2024-07-22 14:59 | XMS_ITS | Encounter Summary ---
Author Organization [facility] Address [address] [place] [address] Care Team Providers Care Salvage Clerk Name Role Phone None, Provider Primary Care Provider Unavailabl e Reason for Visit * (Routine) - Receiving Office to Obtain Authorization Specialty Diagnoses / Procedures Referred By Ness palacio Referred To Contact Procedures MR OUTSIDE IMAGES MSK Unknown, Provider, Referral ID Status Reason Start Date Expiration Date Visits Requested Visits Authorized [id number] Receiving Office to Obtain Authorization 04/04/2021 1 1 Encounter Details Date Type Department Care Team (Latest Contact Info) Description 03/18/2021 - 03/18/2021 23:59 EDT Hospital Encounter [facility] [place] Discharge Disposition: Home or Self Care Social History Tobacco Use Types Packs/Day Years Used Date Smoking Tobacco: Never Assessed Interpersonal Safety Answer Date Record ed Physically Hurt Never 06/26/2020 Verbally Threaten Not on file 06/26/2020 Sex and Gender Information Value Date Recorded Sex Assigned at Not on file Gender Identity Not on file Sexual Orientation Not on file documented as of this encounter Discharge Disposition Disposition Code Departure Means Destination Home or Self Care documented in this encounter Plan of Treatment Not on file documented as of this encounter Procedures Procedure Name Priority Date/Time Associated Diagnosis Comments MR OUTSIDE IMAGES MSK Routine 04/04/2021 18:06 EDT documented in this encounter Results * MR OUTSIDE IMAGES MSK (04/04/2021 18:06 EDT) Narrative 04/04/2021 18:06 EDT This is a non-reportable exam. Provider Unknown MD WILLS OTHER IMAGING OR DERABLES documented in this encounter Visit Diagnoses Not on filedocumented in this encounter Care Teams Salvage Clerk Relationship Specialty Start Date End Date None, Provider PCP - General 07/15/16 documented as of this encounter
--- OUTSIDE RECORDS SUMMARY | 2024-07-22 14:59 | XMS_ITS | Encounter Summary ---
Author Organization [facility] Address [address] [place] [address] Care Team Providers Care Clinic Office Coordinator Name Role Phone None, Provider Primary Care Provider Unavailabl e Reason for Visit * (Routine) - Receiving Office to Obtain Authorization Specialty Diagnoses / Procedures Referred By Ness palacio Referred To Contact Procedures XR OUTSIDE IMAGES CHEST Unknown, Provider, Referral ID Status Reason Start Date Expiration Date Visits Requested Visits Authorized [id number] Receiving Office to Obtain Authorization 04/04/2021 1 1 Encounter Details Date Type Department Care Team (Latest Contact Info) Description 03/15/2021 - 03/15/2021 23:59 EDT Hospital Encounter [facility] [place] Discharge Disposition: Home or [...] Procedure Name Priority Date/Time Associated Diagnosis Comments XR OUTSIDE IMAGES CHEST Routine 04/04/2021 18:05 EDT documented in this encounter Results * XR OUTSIDE IMAGES CHEST (04/04/2021 18:05 EDT) Narrative 04/04/2021 18:05 EDT This is a non-reportable exam. Provider Unknown MD WILLS OTHER IMAGING OR DERABLES documented in this encounter Visit Diagnoses Not on filedocumented in this encounter Care Teams Clinic Office Coordinator Relationship Specialty Start Date End Date None, Provider PCP - General 07/15/16 documented as of this encounter
--- OUTSIDE RECORDS SUMMARY | 2024-07-22 14:59 | XMS_ITS | Encounter Summary ---
Author Organization [facility] Address [address] [place] [address] Care Team Providers Care Electrical Instrument Maker Name Role Phone None, Provider Primary Care Provider Unavailabl e Encounter Details Date Type Department Care Team (Late st Contact Info) Description 06/11/2020 Lab Requisition [facility] Pathology & Laboratory Medicine - [facility] [address] [place] [address] Rajinder Inman MD [address] [place] [phone] Encounter for screening for malignant neoplasm of colon; Personal history of colonic polyps; Noninfective gastroenteritis and colitis, unspecified Social History Tobacco Use Types Packs/Day Years Used Date Smoking Tobacco: Never Assessed Sex and Gender Information Value Date Recorded Sex Assigned at Not on file Gender Identity Not on file Sexual Orientation Not on file documented as of this encounter Plan of Treatment Not on file documented as of this encounter Procedures Procedure Name Priority Date/Time Associated Diagnosis Comments SURGICAL PATHOLOGY Today 06/08/2020 9: 30 EDT Encounter for screening for malignant neoplasm of colon Personal history of colonic polyps Noninfective gastroenteritis and colitis, unspecified documented in this encounter Results * SURGICAL PATHOLOGY (06/08/2020 9:30 EDT) Final Diagnosis A. COLON, RANDOM, BIOPSY: - Colonic mucosa with no significant diagnostic abnormality. B. COLON, DESCENDING, POLYP, BIOPSY: - Colonic mucosa with small benign lymphoid aggregate. - No definite polyp identified. - Deeper sections examined x3. C. RECTUM, POLYP, BIOPSY: -Hyperplastic polyp. 06/13/2020 9:40 T [facility] Attestation By the signature below, the attending physician certifies that they have 1) personally conducted a gross and/or microscopic examination of the described specimen(s), and/or personally interpreted the results of laboratory testing of the described specimen(s), and 2) personally rendered or confirmed the above diagnosis. 06/13/2020 9:40 [facility] at 0940 Clinical History Anal prolapse, polyp 06/13/2020 9:40 EDT [facility] Gross Description A. Received in formalin labelled with proper patient identification (initials R, L) and random colon Bx are 3 fragments of wood soft tissue (ranging from 0.1 cm to 0.7 cm in greatest dimension). The specimen is entirely submitted in A1. B. Received in formalin labelled with proper patient identification (initials R, L) and polyp descending colon is a single fragment of wood soft tissue (0.2 x 0.2 x 0.2 cm). The specimen is entirely submitted in B1. C. Received in formalin labelled with proper patient identification (initials R, L) and rectal polyp x2 are 3 fragments of wood-yellow soft tissue (each averaging 0.2 x 0.2 x 0.2 cm). The specimen is entirely submitted in C1. Renae Jayme 06/11/2020 16:15 06/13/2020 9:40 EDT [facility] Performing Lab [facility] 06/13/2020 9:40 EDT [facility] Scanned Images 06/13/2020 9:40 EDT [facility] Tissue SPECIMEN FROM RECTUM / Unknown 06/08/2020 9:30 EDT 06/11/2020 15:50 EDT Tissue specimen (specimen) DESCENDING COLON STRUCTURE / Unknown 06/08/2020 9:30 EDT 06/11/2020 15:50 EDT Tissue specimen (specimen) SPECIMEN FROM RECTUM / Unknown 06/08/2020 9:30 EDT 06/11/2020 15:50 EDT Rajinder Inman MD PATHOLOGY ORD ERABLES [facility] [address] [place] [address] documented in this encounter Visit Diagnoses Diagnosis Encounter for screening for malignant neoplasm of colon Special screening for malignant neoplasms, colon Personal history of colonic polyps Noninfective gastroenteritis and colitis, unspecified documented in this encounter Additional Health Concerns Infection Onset Date Last Indicated Resolved Time MDR-GNR Comment:IP Note: MDR-GNR positive Proteus in urine 02/26/23 A Ross 03/05/23 03/05/2023 03/05/2023 documented as of this encounter Care Teams Electrical Instrument Maker Relationship Specialty Start Date End Date None, Provider PCP - General 07/15/16 documented as of this encounter
--- OUTSIDE RECORDS SUMMARY | 2024-07-22 14:59 | XMS_ITS | Encounter Summary ---
Author Organization [facility] Address [address] [place] [address] Care Team Providers Care Shell Mold Bonder Name Role Phone None, Provider Primary Care Provider Unavailabl e Encounter Details Date Type Department Care Team (Late st Contact Info) Description 01/26/2021 Lab Requisition [facility] Pathology & Laboratory Medicine - [facility] [address] [place] [address] Outr Resulting Lab, Provider Social History Tobacco Use Types Packs/Day Years [...] Procedure Name Priority Date/Time Associated Diagnosis Comments DO NOT ORDER STANDALONE - ABDI COVID TESTING Today 01/26/2021 13:00 EDT COVID-19 TESTING Routine 01/26/2021 13:0 0 EDT documented in this encounter Results * DO NOT ORDER STANDALONE - ABDI COVID TESTING (01/26/2021 13:00 EDT) COVID-19 rt-PCR Result Not Detected Not Detected 01/28/2021 18:33 EDT [facility] Comment: This test has not been FDA cleared or approved. This test has been authorized by FDA under an EUA for use by authorized laboratories. ??This test has been authorized only for the detection of nucleic acid from SARS-CoV-2, not for any other viruses or pathogens. ??This test is only authorized for the duration of the declaration that circumstances exist justifying the authorization of emergency use of in vitro diagnostic tests for detection and/or diagnosis of COVID-19 under Section 564(b)(1) of the Act, 21 U.S.C. Section 360bbb-3(b)(1), unless the authorization is terminated or revoked sooner. ??Factsheets for healthcare providers: ??https://www.fda.gov/media/428630/download Factsheets for patients: https://www.fda.gov/media/838236/download Negative results do not preclude infection with SARS-CoV-2 virus, and should not be the sole basis of a patient management decision. Swab ENTIRE NASOPHARYNX / Unknown 01/26/2021 13:00 EDT 01/26/2021 21:24 EDT Provider Outr Resulting Lab MICROBIOLOGY - GENERAL ORDERABLES Performing Organization Address City/State/[facility] Co de Phone Number [facility] [address] [place] [address] * COVID-19 TESTING (01/26/2021 13:00 EDT) COVID-19 rt-PCR Result Not Detected Not Detected 01/28/2021 18:53 EDT [facility] Comment: This test has not been FDA cleared or approved. This test has been authorized by FDA under an EUA for use by authorized laboratories. ??This test has been authorized only for the detection of nucleic acid from SARS-CoV-2, not for any other viruses or pathogens. ??This test is only authorized for the duration of the declaration that circumstances exist justifying the authorization of emergency use of in vitro diagnostic tests for detection and/or diagnosis of COVID-19 under Section 564(b)(1) of the Act, 21 U.S.C. Section 360bbb-3(b)(1), unless the authorization is terminated or revoked sooner. ??Factsheets for healthcare providers: ??https://www.fda.gov/media/506258/download Factsheets for patients: https://www.fda.gov/media/217674/download Negative results do not preclude infection with SARS-CoV-2 virus, and should not be the sole basis of a patient management decision. Performing Lab [facility] 01/28/2021 18:53 EDT [facility] Swab 01/26/2021 13:0 0 EDT 01/26/2021 21:24 EDT Provider Outr Resulting Lab MICROBIOLOGY - GENERAL ORDERABLES [facility] [address] LABORATORY [address] [place] [address] documented in this encounter Visit Diagnoses Not on filedocumented in this encounter Additional Health Concerns Infection Onset Date Last Indicated Resolved Time MDR-GNR Comment:IP Note: MDR-GNR positive Proteus in urine 02/26/23 A Ross 03/05/23 03/05/2023 03/05/2023 documented as of this encounter Care Teams Shell Mold Bonder Relationship Specialty Start Date End Date None, Provider PCP - General 07/15/16 documented as of this encounter
--- OUTSIDE RECORDS SUMMARY | 2024-07-22 14:59 | XMS_ITS | Encounter Summary ---
Author Organization [facility] Address [address] [place] [address] Care Team Providers Care Screen Printing Paster Name Role Phone None, Provider Primary Care Provider Unavailabl e Encounter Details Date Type Department Care Team (Late st Contact Info) Description 03/30/2021 Lab Requisition [facility] Pathology & Laboratory Medicine - [facility] [address] [place], [place] [address] Outr Resulting Lab, Provider Social History Tobacco [...] Procedure Name Priority Date/Time Associated Diagnosis Comments PREALBUMIN Routine 03/30/2021 6:40 EDT documented in this encounter Results * (ABNORMAL) PREALBUMIN (03/30/2021 6:40 EDT) Prealbumin 17(L) 20 - 40 mg/dL 04/02/2021 9:43 EDT [facility] Blood VENOUS BLOOD / Unknown 03/30/2021 6:40 EDT 03/31/2021 15:53 EDT Provider Outr Resulting Lab CHEMISTRY & BLOOD GAS ORDERABLES [facility] [address] [place] [address] documented in this encounter Visit Diagnoses Not on filedocumented in this encounter Additional Health Concerns Infection Onset Date Last Indicated Resolved Time MDR-GNR Comment:IP Note: MDR-GNR positive Proteus in urine 02/26/23 A Ross 03/05/23 03/05/2023 03/05/2023 documented as of this encounter Care Teams Screen Printing Paster Relationship Specialty Start Date End Date None, Provider PCP - General 07/15/16 documented as of this encounter
--- OUTSIDE RECORDS SUMMARY | 2024-07-22 14:59 | XMS_ITS | Encounter Summary ---
Author Organization [facility] Address [address] [place] [address] Care Team Providers Care Mental Health Technician Name Role Phone None, Provider Primary Care Provider Unavailabl e Encounter Details Date Type Department Care Team (Late st Contact Info) Description 09/17/2023 Lab Requisition [facility] Pathology & Laboratory Medicine - [address] [address] Genevieve Davis, [facility] Urinary tract infection, site not specified Social History Tobacco Use Types Packs/Day Years Used Date Smoking Tobacco: Never Assessed Interpersonal Safety Answer Date Record ed Physically Hurt Never 04/04/2021 Verbally Threaten Not on file 04/04/2021 Sex and Gender Information Value Date Recorded Sex Assigned at Not on file Gender Identity Not on file Sexual Orientation Not on file documented as of this encounter Plan of Treatment Not on file documented as of this encounter Procedures Procedure Name Priority Date/Time Associated Diagnosis Comments SUSCEPTIBILITY Today 09/16/2023 12:00 EST Urinary tract infection, site not specified documented in this encounter Results * (ABNORMAL) SUSCEPTIBILITY (09/16/2023 12:00 EST) Organism ID Proteus mirabilis( A) VITEK SUSCEPTIBILITY 09/19/2023 16:22 EST [facility] Comment: Use of cefazolin is only indicated in cases of uncomplicated UTIs. Cefazolin susceptibility results can be used to predict susceptibility results for the following oral cephalosporins when used for therapy of uncomplicated UTIs due to E.coli, K.pneumoniae, and P.mirabilis: cefaclor, cefdinir, cefpodoxime, cefprozil, cefuroxime, cephalexin, loracarbef. Cefdinir, cefpodoxime, and cefuroxime may be tested individually because some isolates may be susceptibile to these agents while testing resistance to cefazolin. Please note that only cefpodoxime and cephalexin are on the [facility] inpatient formulary. ? Organism URINE / Unknown 09/16/2023 1 2:00 EST 09/17/2023 18:01 EST Narrative Organism Antibiotic Method Susceptibility Proteus mirabilis Ampicillin VITEK SUSCEPTIBILITY >=32 ug/mL: Resistant Proteus mirabilis Cefazolin VITEK SUSCEPTIBILITY 16 ug/mL: Susceptible Proteus mirabilis Cefepime VITEK SUSCEPTIBILITY <=1 ug/mL: Susceptible Proteus mirabilis Ceftriaxone VITEK SUSCEPTIBILITY <=1 ug/mL: Susceptible Proteus mirabilis Ciprofloxacin VITEK SUSCEPTIBILITY >=4 ug/mL: Resistant Proteus mirabilis Meropenem VITEK SUSCEPTIBILITY 1 ug/mL: Susceptible Proteus mirabilis Nitrofurantoin VITEK SUSCEPTIBILITY 128 ug/mL: Resistant Proteus mirabilis Piperacillin Tazobactam VITEK SUSCEP TIBILITY 8 ug/mL: Susceptible Proteus mirabilis Trimethoprim-Sulfame tho xazole VITEK SUSCEPTIBILITY >=320 ug/mL: Resistant Genevieve Davis [facility] MICROBIOLOGY - GEN ERAL ORDERABLES [facility] [address] [place] [address] documented in this encounter Visit Diagnoses Diagnosis Urinary tract infection, site not specified documented in this encounter Additional Health Concerns Infection Onset Date Last Indicated Resolved Time MDR-GNR Comment:IP Note: MDR-GNR positive Proteus in urine 02/26/23 A Ross 03/05/23 03/05/2023 03/05/2023 documented as of this encounter Care Teams Mental Health Technician Relationship Specialty Start Date End Date None, Provider PCP - General 07/15/16 documented as of this encounter
--- OUTSIDE RECORDS SUMMARY | 2024-07-22 14:59 | XMS_ITS | Encounter Summary ---
Author Organization [facility] Address [address] [place] [address] Care Team Providers Care Patent Paralegal Name Role Phone None, Provider Primary Care Provider Unavailabl e Encounter Details Date Type Department Care Team (Late st Contact Info) Description 01/14/2024 Lab Requisition [facility] Pathology & Laboratory Medicine - [facility] [address] [place] [address] Outr Resulting Lab, Provider Social History Tobacco [...] Procedure Name Priority Date/Time Associated Diagnosis Comments LEGIONELLA ANTIGEN DETECTION, URINE Routine 01/13/2024 21:50 EDT documented in this encounter Results * LEGIONELLA ANTIGEN DETECTION, URINE (01/13/2024 21:50 EDT) Legionella Antigen Detection Negative Negative 01/14/2024 20:29 EDT [facility] Urine URINE / Unknown 01/13/2024 2 1:50 EDT 01/14/2024 17:57 EDT Provider Outr Resulting Lab MICROBIOLOGY - GENERAL ORDERABLES [facility] [address] [place] [address] documented in this encounter Visit Diagnoses Not on filedocumented in this encounter Additional Health Concerns Infection Onset Date Last Indicated Resolved Time MDR-GNR Comment:IP Note: MDR-GNR positive Proteus in urine 02/26/23 A Ross 03/05/23 03/05/2023 03/05/2023 documented as of this encounter Care Teams Patent Paralegal Relationship Specialty Start Date End Date None, Provider PCP - General 07/15/16 documented as of this encounter
--- OUTSIDE RECORDS SUMMARY | 2024-07-22 14:59 | XMS_ITS | Encounter Summary ---
Author Organization [facility] Address [address] [place] [address] Care Team Providers Care Learning Center Coordinator Name Role Phone None, Provider Primary Care Provider Unavailabl e Reason for Visit * (Routine) - Receiving Office to Obtain Authorization Specialty Diagnoses / Procedures Referred By Ness palacio Referred To Contact Procedures XR OUTSIDE IMAGES BODY Unknown, Provider, Referral ID Status Reason Start Date Expiration Date Visits Requested Visits Authorized [id number] Receiving Office to Obtain Authorization 04/04/2021 1 1 Encounter Details Date Type Department Care Team (Latest Contact Info) Description 01/01/2021 Hospital Encounter [facility] Secondary Reads [place] Discharge Disposition: Home [...] Date/Time Associated Diagnosis Comments XR OUTSIDE IMAGES BODY Routine 04/04/2021 20:29 EDT documented in this encounter Results * XR OUTSIDE IMAGES BODY (04/04/2021 20:29 EDT) Narrative 04/04/2021 20:29 EDT This is a non-reportable exam. Provider Unknown MD WILLS OTHER IMAGING OR DERABLES documented in this encounter Visit Diagnoses Not on filedocumented in this encounter Care Teams Learning Center Coordinator Relationship Specialty Start Date End Date None, Provider PCP - General 07/15/16 documented as of this encounter
--- OUTSIDE RECORDS SUMMARY | 2024-07-22 14:59 | XMS_ITS | Encounter Summary ---
Author Organization [facility] Address [address] [place] [address] Care Team Providers Care Tobacco Wrapping Machine Tender Name Role Phone None, Provider Primary Care Provider Unavailabl e Encounter Details Date Type Department Care Team (Late st Contact Info) Description 04/26/2021 Lab Requisition [facility] Pathology & Laboratory Medicine - [address] [address] Outr Resulting Lab, Provider Social History Tobacco [...] Priority Date/Time Associated Diagnosis Comments PREALBUMIN Routine 04/26/2021 6:15 EDT documented in this encounter Results * PREALBUMIN (04/26/2021 6:15 EDT) Prealbumin 26 20 - 40 mg/dL 04/29/2021 9:37 EDT [facility] Blood VENOUS BLOOD / Unknown 04/26/2021 6:15 EDT 04/26/2021 16:32 EDT Provider Outr Resulting Lab CHEMISTRY & BLOOD GAS ORDERABLES [facility] [address] [place] [address] documented in this encounter Visit Diagnoses Not on filedocumented in this encounter Additional Health Concerns Infection Onset Date Last Indicated Resolved Time MDR-GNR Comment:IP Note: MDR-GNR positive Proteus in urine 02/26/23 A Ross 03/05/23 03/05/2023 03/05/2023 documented as of this encounter Care Teams Tobacco Wrapping Machine Tender Relationship Specialty Start Date End Date None, Provider PCP - General 07/15/16 documented as of this encounter
--- OUTSIDE RECORDS SUMMARY | 2024-07-22 14:59 | XMS_ITS | Encounter Summary ---
Author Organization [facility] Address [address] [place] [address] Care Team Providers Care Video Game Maker Name Role Phone None, Provider Primary Care Provider Unavailabl e Encounter Details Date Type Department Care Team (Late st Contact Info) Description 2022 Lab Requisition [facility] Pathology & Laboratory Medicine - [address] [address] Outr Resulting Lab, Provider Social History Tobacco [...] Procedure Name Priority Date/Time Associated Diagnosis Comments ZZCOVID-19 TEST [facility] PCR Today 2022 9:38 EDT COVID-19 TESTING Routine 2022 9:38 EDT documented in this encounter Results * COVID-19 TEST [facility] PCR (2022 9:38 EDT) Swab 2022 9:38 EDT 2022 21:36 EDT Provider Outr Resulting Lab MICROBIOLOGY - GENERAL ORDERABLES [facility] [address] [place] [address] * COVID-19 TESTING (2022 9:38 EDT) COVID-19 rt-PCR Result Negative Negative 2022 22:42 EDT [facility] Comment: This test has not been FDA cleared or approved. This test has been authorized by FDA under an EUA for use by authorized laboratories. This test has been authorized only for detection of nucleic acid from 2019-nCoV, not for any other viruses or pathogens. This test is only authorized for the duration of the declaration that circumstances exist justifying the authorization of emergency use of in vitro diagnostic tests for detection and/or diagnosis of 2019-nCoV under section 564(b)(1) of Act, 21 U.S.C ?? 360bbb-3(b) (1), unless the authorization is terminated or revoked sooner. Negative results do not preclude 2019-nCoV infection and should not be used as the sole basis for treatment or other patient management decisions. Negative results must be combined with clinical observations, patient history, and epidemiological information. Performed on the [employer] GeneXpert Instrument Performing Lab GeneXpert [facility] Lab 2022 22:42 EDT [facility] Swab 2022 9:38 EDT 2022 21:36 EDT Provider Outr Resulting Lab MICROBIOLOGY - GENERAL ORDERABLES [facility] [address] [place] [address] documented in this encounter Visit Diagnoses Not on filedocumented in this encounter Additional Health Concerns Infection Onset Date Last Indicated Resolved Time MDR-GNR Comment:IP Note: MDR-GNR positive Proteus in urine 02/26/23 A Ross 03/05/23 03/05/2023 03/05/2023 documented as of this encounter Care Teams Video Game Maker Relationship Specialty Start Date End Date None, Provider PCP - General 07/15/16 documented as of this encounter
--- OUTSIDE RECORDS SUMMARY | 2024-07-22 14:59 | XMS_ITS | Encounter Summary ---
Author Organization [facility] Address [address] [place] [address] Care Team Providers Care Learning Development Specialist Name Role Phone None, Provider Primary Care Provider Unavailabl e Encounter Details Date Type Department Care Team (Late st Contact Info) Description 05/28/2021 Lab Requisition [facility] Pathology & Laboratory Medicine - [address] [address] Outr Resulting Lab, Provider Social History Tobacco [...] Priority Date/Time Associated Diagnosis Comments PREALBUMIN Routine 05/28/2021 6:45 EDT documented in this encounter Results * (ABNORMAL) PREALBUMIN (05/28/2021 6:45 EDT) Prealbumin 17(L) 20 - 40 mg/dL 05/29/2021 9:03 EDT [facility] Blood VENOUS BLOOD / Unknown 05/28/2021 6:45 EDT 05/28/2021 15:33 EDT Provider Outr Resulting Lab CHEMISTRY & BLOOD GAS ORDERABLES [facility] [address] [place] [address] documented in this encounter Visit Diagnoses Not on filedocumented in this encounter Additional Health Concerns Infection Onset Date Last Indicated Resolved Time MDR-GNR Comment:IP Note: MDR-GNR positive Proteus in urine 02/26/23 A Ross 03/05/23 03/05/2023 03/05/2023 documented as of this encounter Care Teams Learning Development Specialist Relationship Specialty Start Date End Date None, Provider PCP - General 07/15/16 documented as of this encounter
--- OUTSIDE RECORDS SUMMARY | 2024-07-22 14:59 | XMS_ITS | Encounter Summary ---
Author Organization [facility] Address [address] [place] [address] Care Team Providers Care Final Rail Cutter Name Role Phone None, Provider Primary Care Provider Unavailabl e Encounter Details Date Type Department Care Team (Late st Contact Info) Description 06/19/2023 Lab Requisition [facility] Pathology & Laboratory Medicine - [address] [address] Genevieve Baez MD [address] [place] [phone] Social History Tobacco Use Types Packs/Day Years [...] Procedure Name Priority Date/Time Associated Diagnosis Comments YEAST IDENTIFICATION Today 06/15/2023 21:30 EDT documented in this encounter Results * (ABNORMAL) YEAST IDENTIFICATION (06/15/2023 21:30 EDT) Organism ID Lisa albicans(A) 06/22/2023 14:25 EDT [facility] Organism URINE / Unknown 06/15/2023 2 1:30 EDT 06/19/2023 17:43 EDT Narrative Organism Antibiotic Method Susceptibility Lisa albicans Fluconazole MICRO SUSCEPTIBILITY 0.5 ug/mL: Susceptible Genevieve Baez MD MICROBIOLOGY - GENER AL ORDERABLES [facility] [address] [place] [address] documented in this encounter Visit Diagnoses Not on filedocumented in this encounter Additional Health Concerns Infection Onset Date Last Indicated Resolved Time MDR-GNR Comment:IP Note: MDR-GNR positive Proteus in urine 02/26/23 A Ross 03/05/23 03/05/2023 03/05/2023 documented as of this encounter Care Teams Final Rail Cutter Relationship Specialty Start Date End Date None, Provider PCP - General 07/15/16 documented as of this encounter
--- OUTSIDE RECORDS SUMMARY | 2024-07-22 14:59 | XMS_ITS | Encounter Summary ---
Author Organization [facility] Address [address] [place] [address] Care Team Providers Care Manager Business Systems Name Role Phone None, Provider Primary Care Provider Unavailabl e Encounter Details Date Type Department Care Team (Late st Contact Info) Description 04/02/2022 Lab Requisition [facility] Pathology & Laboratory Medicine - [address] [address] Outr Resulting Lab, Provider Social History Tobacco [...] Comments ZZCOVID-19 TEST [facility] PCR Today 04/02/2022 11:30 EDT COVID-19 TESTING Routine 04/02/2022 11:3 0 EDT documented in this encounter Results * COVID-19 TEST [facility] PCR (04/02/2022 11:30 EDT) Swab 04/02/2022 11:3 0 EDT 04/02/2022 22:35 EDT Provider Outr Resulting Lab MICROBIOLOGY - GENERAL ORDERABLES [facility] [address] [place] [address] * COVID-19 TESTING (04/02/2022 11:30 EDT) COVID-19 rt-PCR Result Negative Negative 04/03/2022 11:07 EDT [facility] Comment: This test has not [...] clinical observations, patient history, and epidemiological information. Testing was performed using the taj SARS-CoV-2 assay ([employer] on the Taj 6800 System Performing Lab Taj 6800 [facility] Lab 04/03/2022 11:07 EDT [facility] Swab 04/02/2022 11:3 0 EDT 04/02/2022 22:35 EDT Provider Outr Resulting Lab MICROBIOLOGY - GENERAL ORDERABLES [facility] [address] [place] [address] documented in this encounter Visit Diagnoses Not on filedocumented in this encounter Additional Health Concerns Infection Onset Date Last Indicated Resolved Time MDR-GNR Comment:IP Note: MDR-GNR positive Proteus in urine 02/26/23 A Ross 03/05/23 03/05/2023 03/05/2023 documented as of this encounter Care Teams Manager Business Systems Relationship Specialty Start Date End Date None, Provider PCP - General 07/15/16 documented as of this encounter
--- OUTSIDE RECORDS SUMMARY | 2024-07-22 14:59 | XMS_ITS | Encounter Summary ---
Author Organization [facility] Address [address] [place] [address] Care Team Providers Care Emergency Services Dispatcher Name Role Phone None, Provider Primary Care Provider Unavailabl e Reason for Visit * (Routine) - Receiving Office to Obtain Authorization Specialty Diagnoses / Procedures Referred By Ness palacio Referred To Contact Procedures CT OUTSIDE IMAGES BODY Unknown, Provider, Referral ID Status Reason Start Date Expiration Date Visits Requested Visits Authorized [id number] Receiving Office to Obtain Authorization 04/08/2021 1 1 Encounter Details Date Type Department Care Team (Latest Contact Info) Description 03/30/2021 Hospital Encounter [facility] Secondary Reads [place] Discharge Disposition: Home or [...] Procedure Name Priority Date/Time Associated Diagnosis Comments CT OUTSIDE IMAGES BODY Routine 04/08/2021 21:58 EDT documented in this encounter Results * CT OUTSIDE IMAGES BODY (04/08/2021 21:58 EDT) Narrative 04/08/2021 21:58 EDT This is a non-reportable exam. Provider Unknown MD WILLS OTHER IMAGING OR DERABLES documented in this encounter Visit Diagnoses Not on filedocumented in this encounter Care Teams Emergency Services Dispatcher Relationship Specialty Start Date End Date None, Provider PCP - General 07/15/16 documented as of this encounter
--- OUTSIDE RECORDS SUMMARY | 2024-07-22 14:59 | XMS_ITS | Encounter Summary ---
Author Organization [facility] Address [address] [place] [address] Care Team Providers Care Head Insulation Board Saw Operator Name Role Phone None, Provider Primary Care Provider Unavailabl e Encounter Details Date Type Department Care Team (Late st Contact Info) Description 05/20/2023 Lab Requisition [facility] Pathology & Laboratory Medicine - [address] [address] Lucie Choudhury [address] [place] [address] [place] [id number] Urinary tract infection, site not specified Social [...] Priority Date/Time Associated Diagnosis Comments SUSCEPTIBILITY Today 05/17/2023 11:21 EDT Urinary tract infection, site not specified documented in this encounter Results * (ABNORMAL) SUSCEPTIBILITY (05/17/2023 11:21 EDT) Organism ID Proteus mirabilis( A) VITEK SUSCEPTIBILITY 05/28/2023 13:[address] [facility] Comment: Use of cefazolin is [...] only cefpodoxime and cephalexin are on the [facility] inpatient formulary. ? Organism (organism) URINE / Unknown 05/17/2023 11:21 EDT 05/20/2023 17:36 EDT Narrative Organism Antibiotic Method Susceptibility Proteus mirabilis Ampicillin VITEK SUSCEPTIBILITY >=32 ug/mL: Resistant Proteus mirabilis Cefazolin VITEK SUSCEPTIBILITY >=64 ug/mL: Resistant Proteus mirabilis Cefepime VITEK SUSCEPTIBILITY 4 ug/mL: Susceptible Dose Dependent Comment:This is an a ppended report. These results have been appended to a previously preliminary verified report. Proteus mirabilis Ceftriaxone VITEK SUSCEPTIBILITY <=1 ug/mL: Susceptible Proteus mirabilis Ciprofloxacin VITEK SUSCEPTIBILITY >=4 ug/mL: Resistant Proteus mirabilis Ertapenem VITEK SUSCEPTIBILITY Intermediate Comment:This is an a ppended report. These results have been appended to a previously preliminary verified report. Proteus mirabilis Meropenem VITEK SUSCEPTIBILITY 8 ug/mL: Resistant Comment:This is an a ppended report. These results have been appended to a previously preliminary verified report. Proteus mirabilis Nitrofurantoin VITEK SUSCEPTIBILITY 256 ug/mL: Resistant Proteus mirabilis Piperacillin Tazobactam VITEK SUSCEP TIBILITY 8 ug/mL: Susceptible Proteus mirabilis Trimethoprim-Sulfame tho xazole VITEK SUSCEPTIBILITY >=320 ug/mL: Resistant Lucie Choudhury MICROBIOLOGY - [facility] AL ORDERABLES [facility] [address] [place] [address] documented in this encounter Visit Diagnoses Diagnosis Urinary tract infection, site not specified documented in this encounter Additional Health Concerns Infection Onset Date Last Indicated Resolved Time MDR-GNR Comment:IP Note: MDR-GNR positive Proteus in urine 02/26/23 A Ross 03/05/23 03/05/2023 03/05/2023 documented as of this encounter Care Teams Head Insulation Board Saw Operator Relationship Specialty Start Date End Date None, Provider PCP - General 07/15/16 documented as of this encounter
--- OUTSIDE RECORDS SUMMARY | 2024-07-22 14:59 | XMS_ITS | Encounter Summary ---
Author Organization [facility] Address [address] [place] [address] Care Team Providers Care Seamless Tube Roller Name Role Phone None, Provider Primary Care Provider Unavailabl e Encounter Details Date Type Department Care Team (Late st Contact Info) Description 04/26/2022 Lab Requisition [facility] Pathology & Laboratory Medicine - [address] [address] Outr Resulting Lab, Provider Social History Tobacco [...] Comments ZZCOVID-19 TEST [facility] PCR Today 04/25/2022 10:20 EDT COVID-19 TESTING Routine 04/25/2022 10:2 0 EDT documented in this encounter Results * COVID-19 TEST [facility] PCR (04/25/2022 10:20 EDT) Swab 04/25/2022 10:2 0 EDT 04/26/2022 21:39 EDT Provider Outr Resulting Lab MICROBIOLOGY - GENERAL ORDERABLES [facility] [address] [place] [address] * COVID-19 TESTING (04/25/2022 10:20 EDT) COVID-19 rt-PCR Result Negative Negative 04/27/2022 10:54 EDT [facility] Comment: This test has not [...] performed using the taj SARS-CoV-2 assay ([employer] on the Taj 6800 System Performing Lab Taj 6800 [facility] Lab 04/27/2022 10:54 EDT [facility] Swab 04/25/2022 10:2 0 EDT 04/26/2022 21:39 EDT Provider Outr Resulting Lab MICROBIOLOGY - GENERAL ORDERABLES [facility] [address] [place] [address] documented in this encounter Visit Diagnoses Not on filedocumented in this encounter Additional Health Concerns Infection Onset Date Last Indicated Resolved Time MDR-GNR Comment:IP Note: MDR-GNR positive Proteus in urine 02/26/23 A Ross 03/05/23 03/05/2023 03/05/2023 documented as of this encounter Care Teams Seamless Tube Roller Relationship Specialty Start Date End Date None, Provider PCP - General 07/15/16 documented as of this encounter
--- OUTSIDE RECORDS SUMMARY | 2024-07-22 14:59 | XMS_ITS | Encounter Summary ---
Author Organization [facility] Address [address] [place] [address] Care Team Providers Care Cephalometric Technician Name Role Phone None, Provider Primary Care Provider Unavailabl e Reason for Visit * (Routine) - Receiving Office to Obtain Authorization Specialty Diagnoses / Procedures Referred By Ness palacio Referred To Contact Procedures XR OUTSIDE IMAGES CHEST Unknown, Provider, Referral ID Status Reason Start Date Expiration Date Visits Requested Visits Authorized [id number] Receiving Office to Obtain Authorization 04/04/2021 1 1 Encounter Details Date Type Department Care Team (Latest Contact Info) Description 03/23/2021 0:05 EDT - 03/23/2021 0:09 EDT Hospital Encounter [facility] Secondary Reads [place] Discharge Disposition: Home [...] Comments XR OUTSIDE IMAGES CHEST Routine 04/04/2021 18:24 EDT documented in this encounter Results * XR OUTSIDE IMAGES CHEST (04/04/2021 18:24 EDT) Narrative 04/04/2021 18:24 EDT This is a non-reportable exam. Provider Unknown MD WILLS OTHER IMAGING OR DERABLES documented in this encounter Visit Diagnoses Not on filedocumented in this encounter Care Teams Cephalometric Technician Relationship Specialty Start Date End Date None, Provider PCP - General 07/15/16 documented as of this encounter
--- OUTSIDE RECORDS SUMMARY | 2024-07-22 14:59 | XMS_ITS | Clinical Summary ---
Author Organization [facility] Address [address] [place] [address] Care Team Providers Care Jordan Man Name Role Phone None, Provider Primary Care Provider Unavailabl e Social History Tobacco Use Types Packs/Day Years Used Date Smoking Tobacco: Never Assessed Interpersonal Safety Answer Date Record ed Physically Hurt Never 04/04/2021 Verbally Threaten Not on file 04/04/2021 Sex and Gender Information Value Date Recorded Sex Assigned at Not on file Gender Identity Not on file Sexual Orientation Not on file Plan of Treatment Health Maintenance Due Date Last Done Comments Hepatitis C Screen 1965 Hepatitis B Vaccine (1 of 3 - 19+ 3-dose series) 04/12 COVID-19 Vaccine ( season) 2023 Additional Health Concerns Infection Onset Date Last Indicated MDR-GNR Comment:IP Note: MDR-GNR positive Proteus in urine 02/26/23 A Ross 03/05/23 03/05/2023 03/05/2023 Bruce Velasquez Personal/Family Self 1965 C/O [address] [place] [address] Bruce Velasquez Personal/Family Self 1965 C/O [address] [place] [id number] Bruce Velasquez Personal/Family Self 1965 C/O [address] [place] [id number] Bruce Velasquez Personal/Family Self 1965 C/O [address] [place] [id number] Bruce Velasquez Personal/Family Self 1965 C/O [address]INDER CARP[address]INO [address] [place] [id number] Bruce Velasquez Personal/Family Self 1965 C/O [address]ER [address] [place] [id number] Bruce Velasquez Personal/Family Self 1965 C/O [address]ER [address] [place] [id number] Care Teams Jordan Man Relationship Specialty Start Date End Date None, Provider PCP - General 07/15/16
--- OUTSIDE RECORDS SUMMARY | 2024-07-22 14:59 | XMS_ITS | Encounter Summary ---
Author Organization [facility] Address [address] [place] [address] Care Team Providers Care Senior Corporate Strategy Manager Name Role Phone None, Provider Primary Care Provider Unavailabl e Reason for Visit * (Routine) - Receiving Office to Obtain Authorization Specialty Diagnoses / Procedures Referred By Ness palacio Referred To Contact Procedures US OUTSIDE IMAGES BODY Unknown, Provider, Referral ID Status Reason Start Date Expiration Date Visits Requested Visits Authorized [id number] Receiving Office to Obtain Authorization 04/04/2021 1 1 Encounter Details Date Type Department Care Team (Latest Contact Info) Description 01/01/2021 Hospital Encounter [facility] Center Secondary Reads [place] Discharge Disposition: Home [...] Procedure Name Priority Date/Time Associated Diagnosis Comments US OUTSIDE IMAGES BODY Routine 04/04/2021 20:30 EDT documented in this encounter Results * US OUTSIDE IMAGES BODY (04/04/2021 20:30 EDT) Narrative 04/04/2021 20:30 EDT This is a non-reportable exam. Provider Unknown MD WILLS OTHER IMAGING OR DERABLES documented in this encounter Visit Diagnoses Not on filedocumented in this encounter Care Teams Senior Corporate Strategy Manager Relationship Specialty Start Date End Date None, Provider PCP - General 07/15/16 documented as of this encounter
--- OUTSIDE RECORDS SUMMARY | 2024-07-22 14:59 | XMS_ITS | Encounter Summary ---
Author Organization [facility] Address [address] [place] [address] Care Team Providers Care Content Designer Name Role Phone None, Provider Primary Care Provider Unavailabl e Encounter Details Date Type Department Care Team (Late st Contact Info) Description 02/26/2021 Lab Requisition [facility] Pathology & Laboratory Medicine - [address] [address] Wale Calderon MD Encounter for other general examination Social History Tobacco Use Types Packs/Day Years [...] Date/Time Associated Diagnosis Comments SURGICAL PATHOLOGY Today 02/25/2021 12 :45 EDT Encounter for other general examination documented in this encounter Results * SURGICAL PATHOLOGY (02/25/2021 12:45 EDT) Final Diagnosis A. SOFT TISSUE, LEFT ISCHIAL TUBEROSITY ULCER, EXCISION: - Fragments of necrotic soft tissue with abundant acute inflammation. B. SOFT TISSUE, RIGHT ISCHIAL TUBEROSITY ULCER, EXCISION: - Fragments of necrotic soft tissue with abundant acute inflammation. 03/01/2021 11:03 EDT [facility] Attestation There was significant resident/fellow involvement in the diagnostic evaluation of this case. By the signature below, the attending physician certifies that they have personally conducted a gross and/or microscopic examination of the described specimens and rendered or confirmed the above diagnosis. 03/01/2021 11:03 EDT [facility] at 1103 Clinical History Bilateral ischial tuberosity ulcers (decubitus ulcers) 03/01/2021 11:03 EDT [facility] Gross Description A. Received in formalin labelled with proper patient identification (initials R, L) and left ischial tuberosity ulcer are multiple irregular portions of ulcerated skin and subjacent tissue aggregating 5.8 x 5.0 x 2.9 cm. The skin surfaces are dusky brown maldonado, ulcerated. Areas of obvious unremarkable skin are not identified. Sections through the tissues show opaque maldonado-brown focally indurated and focally softened cut surfaces. Director Of Campus Recreation sections are submitted in A1-A2. B. Received in formalin labelled with proper patient identification (initials R, L) and right ischial tuberosity ulcer are multiple irregular portions of ulcerated skin and subjacent tissue aggregating 5.0 x 4.8 x 4.0 cm. The skin surfaces are dull wood maldonado to ulcerated brown green. Sections through the tissue is show opaque ground focally indurated, focally softened, hemorrhagic cut surfaces. Director Of Campus [employer] sections are submitted in B1-B2. KAN LINDQUIST(ASCP) 02/26/2021 10:29 03/01/2021 11:03 EDT [facility] Resident/Jcarlos w: Rajinder Verduzco DO 03/01/2021 11:03 EDT [facility] Performing Lab [facility] 03/01/2021 11:03 T [facility] Scanned Images 03/01/2021 11:03 T [facility] Tissue SOFT TISSUE / Unknown 02/25/2021 12:45 EDT 02/26/2021 8:44 EDT Tissue specimen (specimen) SOFT TISSUE / Unknown 02/25/2021 12:45 EDT 02/26/2021 8:44 EDT Wale Calderon MD PATHOLOGY ORDERABLES [facility] [address] [place] [address] documented in this encounter Visit Diagnoses Diagnosis Encounter for other general examination documented in this encounter Additional Health Concerns Infection Onset Date Last Indicated Resolved Time MDR-GNR Comment:IP Note: MDR-GNR positive Proteus in urine 02/26/23 A Ross 03/05/23 03/05/2023 03/05/2023 documented as of this encounter Care Teams Content Designer Relationship Specialty Start Date End Date None, Provider PCP - General 07/15/16 documented as of this encounter
--- OUTSIDE RECORDS SUMMARY | 2024-07-22 14:59 | XMS_ITS | Encounter Summary ---
Author Organization [facility] Address [address] [place] [address] Care Team Providers Care Field Crop I Farmworker Name Role Phone None, Provider Primary Care Provider Unavailabl e Encounter Details Date Type Department Care Team (Late st Contact Info) Description 07/31/2022 Lab Requisition [facility] Pathology & Laboratory Medicine - [address] [address] Outr Resulting Lab, Provider Social History Tobacco [...] Priority Date/Time Associated Diagnosis Comments PREALBUMIN Routine 07/30/2022 13:30 EDT documented in this encounter Results * PREALBUMIN (07/30/2022 13:30 EDT) Prealbumin 26 20 - 40 mg/dL 08/01/2022 10:16 EDT [facility] Blood VENOUS BLOOD / Unknown 07/30/2022 13:30 EDT 07/31/2022 18:17 EDT Provider Outr Resulting Lab CHEMISTRY & BLOOD GAS ORDERABLES [facility] [address] [place] [address] documented in this encounter Visit Diagnoses Not on filedocumented in this encounter Additional Health Concerns Infection Onset Date Last Indicated Resolved Time MDR-GNR Comment:IP Note: MDR-GNR positive Proteus in urine 02/26/23 A Ross 03/05/23 03/05/2023 03/05/2023 documented as of this encounter Care Teams Field Crop I Farmworker Relationship Specialty Start Date End Date None, Provider PCP - General 07/15/16 documented as of this encounter
--- OUTSIDE RECORDS SUMMARY | 2024-07-22 14:59 | XMS_ITS | Encounter Summary ---
Author Organization [facility] Address [address] [place] [address] Care Team Providers Care Configuration Analyst Name Role Phone None, Provider Primary Care Provider Unavailabl e Reason for Visit * (Routine) - Receiving Office to Obtain Authorization Specialty Diagnoses / Procedures Referred By Ness palacio Referred To Contact Procedures XR OUTSIDE IMAGES BODY Unknown, Provider, Referral ID Status Reason Start Date Expiration Date Visits Requested Visits Authorized [id number] Receiving Office to Obtain Authorization 04/04/2021 1 1 Encounter Details Date Type Department Care Team (Latest Contact Info) Description 03/30/2021 - 03/30/2021 23:59 EDT Hospital Encounter [facility] Secondary Reads [place] Discharge Disposition: [...] Comments XR OUTSIDE IMAGES BODY Routine 04/04/2021 18:48 EDT documented in this encounter Results * XR OUTSIDE IMAGES BODY (04/04/2021 18:48 EDT) Narrative 04/04/2021 18:48 EDT This is a non-reportable exam. Provider Unknown MD WILLS OTHER IMAGING OR DERABLES documented in this encounter Visit Diagnoses Not on filedocumented in this encounter Care Teams Configuration Analyst Relationship Specialty Start Date End Date None, Provider PCP - General 07/15/16 documented as of this encounter
--- OUTSIDE RECORDS SUMMARY | 2024-07-22 14:59 | XMS_ITS | Encounter Summary ---
Author Organization [facility] Address [address] [place] [address] Care Team Providers Care Ct Technologist Name Role Phone None, Provider Primary Care Provider Unavailabl e Encounter Details Date Type Department Care Team (Late st Contact Info) Description 07/03/2021 Lab Requisition [facility] Pathology & Laboratory Medicine - [address] [address] Outr Resulting Lab, Provider Social History Tobacco [...] Priority Date/Time Associated Diagnosis Comments PREALBUMIN Routine 07/03/2021 6:54 EDT documented in this encounter Results * PREALBUMIN (07/03/2021 6:54 EDT) Prealbumin 30 20 - 40 mg/dL 07/04/2021 8:37 EDT [facility] Blood VENOUS BLOOD / Unknown 07/03/2021 6:54 EDT 07/03/2021 16:47 EDT Provider Outr Resulting Lab CHEMISTRY & BLOOD GAS ORDERABLES [facility] [address] [place] [address] documented in this encounter Visit Diagnoses Not on filedocumented in this encounter Additional Health Concerns Infection Onset Date Last Indicated Resolved Time MDR-GNR Comment:IP Note: MDR-GNR positive Proteus in urine 02/26/23 A Ross 03/05/23 03/05/2023 03/05/2023 documented as of this encounter Care Teams Ct Technologist Relationship Specialty Start Date End Date None, Provider PCP - General 07/15/16 documented as of this encounter
--- OUTSIDE RECORDS SUMMARY | 2024-07-22 14:59 | XMS_ITS | Encounter Summary ---
Author Organization [facility] Address [address] [place] [address] Care Team Providers Care Client Services Analyst Name Role Phone None, Provider Primary Care Provider Unavailabl e Encounter Details Date Type Department Care Team (Late st Contact Info) Description 06/26/2023 Lab Requisition [facility] Pathology & Laboratory Medicine - [address] [address] Genevieve Baez MD [address] [place] [phone] Encounter for other general examination Social History [...] Procedure Name Priority Date/Time Associated Diagnosis Comments ORGANISM IDENTIFICATION AND SUSCEPTIBILITY Today 06/24/2023 10:50 EDT Encounter for other general examination documented in this encounter Results * (ABNORMAL) ORGANISM IDENTIFICATION AND SUSCEPTIBILITY (06/24/2023 10:50 EDT) Organism ID Proteus mirabilis(A ) 06/30/2023 8:24 EDT [facility] Comment: Use of [...] only cefpodoxime and cephalexin are on the [facility] inpatient formulary. ? Organism URINE SPECIMEN OBTAINED BY CLEAN CATCH PROCEDURE / Unknown 06/24/2023 10:50 EDT 06/26/2023 18:45 EDT Narrative Organism Antibiotic Method Susceptibility Proteus [...] xazole VITEK SUSCEPTIBILITY >=320 ug/mL: Resistant Genevieve Baez MD MICROBIOLOGY - GENER AL ORDERABLES [facility] [address] [place] [address] documented in this encounter Visit Diagnoses Diagnosis Encounter for other general examination documented in this encounter Additional Health Concerns Infection Onset Date Last Indicated Resolved Time MDR-GNR Comment:IP Note: MDR-GNR positive Proteus in urine 02/26/23 A Ross 03/05/23 03/05/2023 03/05/2023 documented as of this encounter Care Teams Client Services Analyst Relationship Specialty Start Date End Date None, Provider PCP - General 07/15/16 documented as of this encounter
--- OUTSIDE RECORDS SUMMARY | 2024-07-22 14:59 | XMS_ITS | Encounter Summary ---
Author Organization [facility] Address [address] [place] [address] Care Team Providers Care Medical Office Supervisor Name Role Phone None, Provider Primary Care Provider Unavailabl e Encounter Details Date Type Department Care Team (Late st Contact Info) Description 01/18/2021 Lab Requisition [facility] Pathology & Laboratory Medicine - [facility] [address] [place] [address] Outr Resulting Lab, Provider Social History Tobacco [...] ORDER STANDALONE - ABDI COVID TESTING Today 01/17/2021 15:45 EDT COVID-19 TESTING Routine 01/17/2021 15:4 5 EDT documented in this encounter Results * DO NOT ORDER STANDALONE - ABDI COVID TESTING (01/17/2021 15:45 EDT) COVID-19 rt-PCR Result Not Detected Not Detected 01/19/2021 15:22 EDT [facility] Comment: This test has not been [...] or revoked sooner. ??Factsheets for healthcare providers: ??https://www.fda.gov/media/172589/download Factsheets for patients: https://www.fda.gov/media/149761/download Negative results do not preclude infection with SARS-CoV-2 virus, and should not be the sole basis of a patient management decision. Swab ENTIRE NASOPHARYNX / Unknown 01/17/2021 15:45 EDT 01/18/2021 15:47 EDT Provider Outr Resulting Lab MICROBIOLOGY - GENERAL ORDERABLES Performing Organization Address City/State/[facility] Co de Phone Number [facility] [address] [place] [address] * COVID-19 TESTING (01/17/2021 15:45 EDT) COVID-19 rt-PCR Result Not Detected Not Detected 01/19/2021 15:32 EDT [facility] Comment: This test has not been [...] or revoked sooner. ??Factsheets for healthcare providers: ??https://www.fda.gov/media/890505/download Factsheets for patients: https://www.fda.gov/media/720319/download Negative results do not preclude infection with SARS-CoV-2 virus, and should not be the sole basis of a patient management decision. Performing Lab [facility] 01/19/2021 15:32 EDT [facility] Swab 01/17/2021 15:4 5 EDT 01/18/2021 15:47 EDT Provider Outr Resulting Lab MICROBIOLOGY - GENERAL ORDERABLES [facility] [address] LABORATORY [address] [place] [address] documented in this encounter Visit Diagnoses Not on filedocumented in this encounter Additional Health Concerns Infection Onset Date Last Indicated Resolved Time MDR-GNR Comment:IP Note: MDR-GNR positive Proteus in urine 02/26/23 A Ross 03/05/23 03/05/2023 03/05/2023 documented as of this encounter Care Teams Medical Office Supervisor Relationship Specialty Start Date End Date None, Provider PCP - General 07/15/16 documented as of this encounter
--- OUTSIDE RECORDS SUMMARY | 2024-07-22 14:59 | XMS_ITS | Encounter Summary ---
Author Organization [facility] Address [address] [place] [address] Care Team Providers Care Director Asset Name Role Phone None, Provider Primary Care Provider Unavailabl e Encounter Details Date Type Department Care Team (Late st Contact Info) Description 09/02/2023 Lab Requisition [facility] Pathology & Laboratory Medicine - [facility] [address] [place] [address] Nevaeh Ivey MD [address] [place] [phone] Urinary tract infection, site not specified Social [...] Priority Date/Time Associated Diagnosis Comments SUSCEPTIBILITY Today 09/01/2023 12:00 EDT Urinary tract infection, site not specified documented in this encounter Results * (ABNORMAL) SUSCEPTIBILITY (09/01/2023 12:00 EDT) Organism ID Proteus mirabilis( A) VITEK SUSCEPTIBILITY 09/04/2023 14:44 EDT [facility] Comment: Organism identification performed by client. Use of cefazolin is only indicated in [...] only cefpodoxime and cephalexin are on the [facility] inpatient formulary. ? Organism URINE / Unknown 09/01/2023 1 2:00 EDT 09/02/2023 18:08 EDT Narrative Organism Antibiotic Method Susceptibility Proteus [...] tho xazole VITEK SUSCEPTIBILITY >=320 ug/mL: Resistant Nevaeh Ivey MD MICROBIOLOGY - GENERAL ORDERABLES [facility] [address] [place] [address] documented in this encounter Visit Diagnoses Diagnosis Urinary tract infection, site not specified documented in this encounter Additional Health Concerns Infection Onset Date Last Indicated Resolved Time MDR-GNR Comment:IP Note: MDR-GNR positive Proteus in urine 02/26/23 A Ross 03/05/23 03/05/2023 03/05/2023 documented as of this encounter Care Teams Director Asset Relationship Specialty Start Date End Date None, Provider PCP - General 07/15/16 documented as of this encounter
--- OUTSIDE RECORDS SUMMARY | 2024-07-22 14:59 | XMS_ITS | Encounter Summary ---
Author Organization [facility] Address [address] [place] [address] Care Team Providers Care Senior Software Architect Name Role Phone None, Provider Primary Care Provider Unavailabl e Encounter Details Date Type Department Care Team (Late st Contact Info) Description 11/12/2021 Lab Requisition [facility] Pathology & Laboratory Medicine - [facility] [address] [place] [address] Efe Silva, KATERYNA [address] [place] [phone] Encounter for other general examination Social History [...] Date/Time Associated Diagnosis Comments SURGICAL PATHOLOGY Today 11/11/2021 12 :20 EST Encounter for other general examination documented in this encounter Results * SURGICAL PATHOLOGY (11/11/2021 12:20 EST) Note to Patient The following pathology results have been interpreted by your pathologist and may be available to you before your health provider has had the opportunity to review them. Please allow time for your provider to receive these results and explore management options, if applicable. 11/15/2021 11:12 [facility] Final Diagnosis A. TISSUE FROM RIGHT 5TH METATARSAL-PHALANG EAL JOINT, RESECTION: - Focal denudation of join cartilage with acute and chronic osteomyelitis. - Focal bony remodeling changes. B. RIGHT PROXIMAL PHALANX, BASE, RESECTION: - Benign articular cartilage-lined trabecular bone with focal features suggestive of chronic osteomyelitis (slide B2). 11/15/2021 11:12 [facility] Attestation There was significant resident/fellow involvement in the diagnostic evaluation of this case. By the signature below, the attending physician certifies that they have personally conducted a gross and/or microscopic examination of the described specimens and rendered or confirmed the above diagnosis. 11/15/2021 11:12 [facility] at 1112 Clinical History Neuropathic wound (R) fifth toe, probable osteomyelitis 11/15/2021 11:12 [facility] Gross Description A. Received in formalin labelled with proper patient identification (initials R, L) and R fifth MPJ is a segment of bone (1.2 cm in length by 2.2 cm in diameter). One surface is convex, consistent with the disarticulation site while the opposite surface is flattened, consistent with the resection margin. The resection margin is inked blue. The specimen is serially sectioned and entirely submitted in A1-A3, following acid decalcification. B. Received in formalin labelled with proper patient identification (initials R, L) and base, R proximal phalanx is a 0.7 cm in length by 1 1 cm in diameter portion of bone. One side of the bone is convex, grossly consistent with the disarticulation site, wall opposite side is slot grossly consistent with resection margin. The resection margin is inked. The specimen is serially sectioned and entirely submitted in B1-B2, following acid decalcification. KAN MICHAEL(ASCP) 11/12/2021 14:20 11/15/2021 11:12 [facility] Resident/Jcarlos w: Gloria Frias MD 11/15/2021 11:12 [facility] Performing Lab [facility] 11:12 [facility] Scanned Images 11/15/2021 11:12 EST [facility] Tissue SPECIMEN FROM BONE / Unknown 11/11/2021 12:20 EST 11/12/2021 10:24 EST Tissue specimen (specimen) BONE STRUCTURE / Unknown 11/11/2021 12:20 EST 11/12/2021 10:24 EST Efe Silva DPM PATHOLOGY ORDERA [facility] [address] [place] [address] documented in this encounter Visit Diagnoses Diagnosis Encounter for other general examination documented in this encounter Additional Health Concerns Infection Onset Date Last Indicated Resolved Time MDR-GNR Comment:IP Note: MDR-GNR positive Proteus in urine 02/26/23 A Ross 03/05/23 03/05/2023 03/05/2023 documented as of this encounter Care Teams Senior Software Architect Relationship Specialty Start Date End Date None, Provider PCP - General 07/15/16 documented as of this encounter
--- OUTSIDE RECORDS SUMMARY | 2024-07-22 14:59 | XMS_ITS | Encounter Summary ---
Author Organization [facility] Address [address] [place] [address] Care Team Providers Care Atomic Physics Professor Name Role Phone None, Provider Primary Care Provider Unavailabl e Reason for Visit * (Routine) - Receiving Office to Obtain Authorization Specialty Diagnoses / Procedures Referred By Ness palacio Referred To Contact Procedures XR OUTSIDE IMAGES BODY Unknown, Provider, Referral ID Status Reason Start Date Expiration Date Visits Requested Visits Authorized [id number] Receiving Office to Obtain Authorization 04/04/2021 1 1 Encounter Details Date Type Department Care Team (Latest Contact Info) Description 03/22/2021 - 03/22/2021 0:[address] [facility] Secondary Reads [place] Discharge Disposition: Home [...] Comments XR OUTSIDE IMAGES BODY Routine 04/04/2021 18:15 EDT documented in this encounter Results * XR OUTSIDE IMAGES BODY (04/04/2021 18:15 EDT) Narrative 04/04/2021 18:15 EDT This is a non-reportable exam. Provider Unknown MD WILLS OTHER IMAGING OR DERABLES documented in this encounter Visit Diagnoses Not on filedocumented in this encounter Care Teams Atomic Physics Professor Relationship Specialty Start Date End Date None, Provider PCP - General 07/15/16 documented as of this encounter
--- OUTSIDE RECORDS SUMMARY | 2024-07-22 14:59 | XMS_ITS | Referral Summary ---
Author Organization [facility] Address [address] [place] [address] Care Team Providers Care Plug Assembler Name Role Phone None, Provider Primary Care [...] Orientation Not on file Plan of Treatment Not on file Additional Health Concerns Infection Onset Date Last Indicated MDR-GNR Comment:IP Note: MDR-GNR positive Proteus in urine 02/26/23 A Ross 03/05/23 03/05/2023 03/05/2023 Care Teams Plug Assembler Relationship Specialty Start Date End Date None, Provider PCP - General 07/15/16
--- OUTSIDE RECORDS SUMMARY | 2024-07-22 14:59 | XMS_ITS | Encounter Summary ---
Author Organization [facility] Address [address] [place] [address] Care Team Providers Care Manager Audit Name Role Phone None, Provider Primary Care Provider Unavailabl e Encounter Details Date Type Department Care Team (Late st Contact Info) Description 03/12/2022 Lab Requisition [facility] Pathology & Laboratory Medicine - [address] [id number] Outr Resulting Lab, Provider Social History Tobacco [...] Comments ZZCOVID-19 TEST [facility] PCR Today 03/12/2022 13:47 EDT COVID-19 TESTING Routine 03/12/2022 13:4 7 EDT documented in this encounter Results * COVID-19 TEST [facility] PCR (03/12/2022 13:47 EDT) Swab 03/12/2022 13:4 7 EDT 03/12/2022 21:53 EDT Provider Outr Resulting Lab MICROBIOLOGY - GENERAL ORDERABLES [facility] [address] [place] [address] * COVID-19 TESTING (03/12/2022 13:47 EDT) COVID-19 rt-PCR Result Negative Negative 03/13/2022 0:53 EDT [facility] Comment: This test has [...] history, and epidemiological information. Performed on the Telnicher Fusion instrument Performing Lab Theodore [facility] 03/13/2022 0:53 EDT [facility] Swab 03/12/2022 13:4 7 EDT 03/12/2022 21:53 EDT Provider Outr Resulting Lab MICROBIOLOGY - GENERAL ORDERABLES [facility] [address] [place] [address] documented in this encounter Visit Diagnoses Not on filedocumented in this encounter Additional Health Concerns Infection Onset Date Last Indicated Resolved Time MDR-GNR Comment:IP Note: MDR-GNR positive Proteus in urine 02/26/23 A Ross 03/05/23 03/05/2023 03/05/2023 documented as of this encounter Care Teams Manager Audit Relationship Specialty Start Date End Date None, Provider PCP - General 07/15/16 documented as of this encounter
--- OUTSIDE RECORDS SUMMARY | 2024-07-22 14:59 | XMS_ITS | Continuity of Care Document ---
Author Organization [facility] Address [address] [place] [id number] Care Team Providers Care Registered Nurse Float Pool Name Role Phone Genevieve Baez Primary Care Physician Encounter [facility] [id number] Date(s): 06/20/24 - 06/30/[address] Encounter Diagnosis Chronic incomplete paraplegia(Discharge Diagnosis) - 06/20/24 Acute urinary tract infection(Discharge Diagnosis) - 06/20/24 Left lower lobe pneumonia(Discharge Diagnosis) - 06/23/24 Pressure ulcers of skin of multiple topographic sites(Discharge Diagnosis) - 06/20/24 Bacteremia of undetermined etiology(Discharge Diagnosis) - 06/21/24 Acute delirium(Discharge Diagnosis) - 06/20/24 Discharge Disposition: Home w/ Home Health Care Attending Physician: Thom Smallwood MD Admitting Physician: Thom Smallwood MD Referring Physician: Genevieve Baez Allergies, Adverse Reactions, Alerts No Known Medication Allergies Assessment and Plan Future Scheduled Tests Radiology* XR Chest 1 View 06/26/24 Functional Status 06/30/24 Current Home Treatments Wound group home Equipment Eating utensils leonor fied 06/30/24 Lunch Percent 50% 06/30/24 Personal Care Provided Gown change, Yudy care 06/30/24 Breakfast Percent 50% 06/29/24 Dinner Percent 75% 06/29/24 Activity Status ADL Reposition every 2 h ours, Sleeping 06/28/24 ADLs Complete assist Positioning/Pressure Reducing Devices Pi llow Orthopedic/Preventive Devices Horn boots 06/20/24 Living Situation Home with palliative care COVID-19 Screening None Family Member Travel History No recent t ravel Recent Travel History No recent travel 06/20/24 Living Environment No Living Environmen t Information Available Lives In Other: home with car egivers Lives With Caregiver Home Barriers None Medications acetaminophen 325 mg oral capsule 650 mg = 2 cap, Oral, every 6 hr, PRN as needed for fever, # 20 cap, 0 Refill(s) Start Date: 12/13/23 Status: Ordered divalproex sodium 250 mg oral tablet, extended release 750 mg = 3 tab, Oral, BID, # 180 tab, 0 Refill(s), Pharmacy: [id number], 188, cm, 06/30/24 8:01:00 EDT, [...] bedtime, # 30 tab, 0 Refill(s), Pharmacy: [facility] [id number], cm, 06/30/24 8:01:00 EDT, Height, 90.5, kg, 06/22/24 5:53:00 EDT, Weight Dosing Start Date: 06/30/24 Status: Ordered Mental Status 06/21/24 Eye Opening Response Joleen Spontaneous ly Best Verbal Response Neptune Confused Best Motor Response Neptune Obeys comman ds Joleen Coma Score 14 Problem List Condition Confirmation Course Effective Dates Status Health St atus Informant Acute UTI (urinary tract infection) Confirmed Active Chronic incomplete paraplegia Confirmed Active Paraplegia Confirmed Active 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 Active Urinary tract infection Confirmed Active Results Laboratory List Name Date Automated Diff 06/30/24 Basic Metabolic Panel (BMP) 06/30/24 CBC w/ Diff 06/30/24 Magnesium Level 06/30/24 Automated Diff 06/29/24 Basic Metabolic Panel (BMP) 06/29/24 CBC w/ Diff 06/29/24 Magnesium Level 06/29/24 Automated Diff 06/28/24 Basic Metabolic Panel (BMP) 06/28/24 CBC w/ Diff 06/28/24 Magnesium Level 06/28/24 Vancomycin Level Trough 06/27/24 Vancomycin Level Trough 06/26/24 Hepatic Function Panel (LFT) 06/26/24 Valproic Acid Level 06/26/24 Urinalysis With Micro if Indicated and C ulture if Indicated 06/25/24 Blood Culture [facility] 06/23/24 Urinalysis Microscopic 06/23/24 Urinalysis With Micro if Indicated and C ulture if Indicated 06/23/24 Urine Culture [facility] 06/23/24 Vancomycin Level 06/22/24 Blood Culture [facility] 06/21/24 SARS-CoV-2 (COVID-19)/Flu/RSV (GeneXpert ) 06/20/24 .Manual Differential (COTT) 06/20/24 Blood Culture [facility] 06/20/24 Comprehensive Metabolic Panel (CMP) 06/20 Lactic Acid Level 06/20/24 Troponin T Gen 5 06/20/24 Urinalysis With Micro if Indicated and C ulture if Indicated 06/20/24 Urinalysis Microscopic 06/20/24 Urine Culture [facility] 06/20/24 Most recent to oldest [Reference Range]: 1 2 3 WBC [4.80-10.80 x10^3/mcL] 9.74 x10^3/mcL (06/30/24 6:08 AM) 7.08 x10^3/mcL (06/29/24 6:35 AM) 7.53 x10^3/mcL (06/28/24 6:25 AM) RBC [4.20-5.90 x10^6/mcL] 3.49 x10^6/mcL *LOW* (06/30/24 6:08 AM) 3.33 x10^6/mcL *LOW* (06/29/24 6:35 AM) 3.50 x10^6/mcL *LOW* (06/28/24 6:25 AM) Segs Man [40-75 %] 82 % *HI* (06/20/24 7:52 AM) Lymph Man [20-45 %] 5 % *LOW* (06/20/24 7:52 AM) Neutro Auto [40.0-74.0 /100(WBCs)] 69.2 /100(WBCs) (06/30/24 6:08 AM) 61.4 /100(WBCs) (06/29/24 6:35 AM) 64.6 /100(WBCs) (06/28/24 6:25 AM) Lymph Auto [19.0-48.0 /100(WBCs)] 21.3 /100(WBCs) (06/30/24 6:08 AM) 26.8 /100(WBCs) (06/29/24 6:35 AM) 22.2 /100(WBCs) (06/28/24 6:25 AM) [place]in[place] Auto [3.0-10.0 /100(WBCs)] 6.7 /100(WBCs) (06/30/24 6:08 AM) 7.2 /100(WBCs) (06/29/24 6:35 AM) 8.5 /100(WBCs) (06/28/24 6:25 AM) Basophil Auto [0.00-2.00 /100(WBCs)] 0.50 /100(WBCs) (06/30/24 6:08 AM) 0.40 /100(WBCs) (06/29/24 6:35 AM) 0.40 /100(WBCs) (06/28/24 6:25 AM) Monocyte Man [2-10 %] 13 % *HI* (06/20/24 7:52 AM) Eos Man [1-6 %] 0 % *LOW* (06/20/24 7:52 AM) BUN [6.0-20.0 mg/dL] 11.7 mg/dL (06/30/24 6:08 AM) 5.5 mg/dL *LOW* (06/29/24 6:35 AM) 4.1 mg/dL *LOW* (06/28/24 6:25 AM) UA Color [Yellow] Yellow (06/25/24 5:22 PM) Yellow (06/23/24 7:55 AM) Dark Yellow *ABN* (06/20/24 7:36 AM) UA WBC 10-25 /HPF *ABN* (06/23/24 7:55 AM) >50 /HPF *ABN* (06/20/24 7:36 AM) Glucose Level [70-100 mg/dL] 77 mg/dL (06/30/24 6:08 AM) 80 mg/dL (06/29/24 6:35 AM) 99 mg/dL (06/28/24 6:25 AM) Potassium Level [3.5-5.0 mmol/L] 3.9 mmol/L (06/30/24 6:08 AM) 4.0 mmol/L (06/29/24 6:35 AM) 4.2 mmol/L (06/28/24 6:25 AM) Baso Absolute [0.00-0.20 x10^3/mcL] 0.05 x10^3/mcL (06/30/24 6:08 AM) 0.03 x10^3/mcL (06/29/24 6:35 AM) 0.03 x10^3/mcL (06/28/24 6:25 AM) Vanco Tr [5.0-10.0 mcg/mL] 11.1 mcg/mL *HI* (06/27/24 6:07 AM) 21.6 mcg/mL *HI* (06/26/24 4:20 PM) Valproic Acid Level [50-100 mcg/mL] 30 mcg/mL *LOW* (06/26/24 6:25 AM) MCV [80.0-97.0 fL] 90.3 fL (06/30/24 6:08 AM) 89.8 fL (06/29/24 6:35 AM) 88.0 fL (06/28/24 6:25 AM) UA Urobilinogen [0.2] 0.2 (06/25/24 5:22 PM) 0.2 (06/23/24 7:55 AM) 0.2 (06/20/24 7:36 AM) UA Bili [Negative] Negative (06/25/24 5:22 PM) Negative (06/23/24 7:55 AM) Negative (06/20/24 7:36 AM) UA Ketones [Negative] Trace *ABN* (06/25/24 5:22 PM) Negative (06/23/24 7:55 AM) Negative (06/20/24 7:36 AM) AST [10-50 unit/L] 14 unit/L (06/26/24 6:25 AM) 27 unit/L (06/20/24 7:52 AM) ALT [5-55 unit/L] <5 unit/L (06/26/24 6:25 AM) 19 unit/L (06/20/24 7:52 AM) MCHC [33.0-36.0 g/dL] 31.7 g/dL *LOW* (06/30/24 6:08 AM) 32.1 g/dL *LOW* (06/29/24 6:35 AM) 32.5 g/dL *LOW* (06/28/24 6:25 AM) Sodium Level [136-145 mmol/L] 142 mmol/L (06/30/24 6:08 AM) 141 mmol/L (06/29/24 6:35 AM) 142 mmol/L (06/28/24 6:25 AM) UA RBC 0-2 /HPF (06/23/24 7:55 AM) 25-50 /HPF (06/20/24 7:36 AM) UA Leuk Est [Negative] Negative (06/25/24 5:22 PM) 1+ *ABN* (06/23/24 7:55 AM) 3+ *ABN* (06/20/24 7:36 AM) Vancomycin Level Random [18.0-26.0 mcg/mL] 33.5 mcg/mL 1 *CRIT* (06/22/24 11:17 AM) Lymph Absolute [1.20-3.40 x10^3/mcL] 2.07 x10^3/mcL (06/30/24 6:08 AM) 1.90 x10^3/mcL (06/29/24 6:35 AM) 1.67 x10^3/mcL (06/28/24 6:25 AM) UA Nitrite [Negative] Negative (06/25/24 5:22 PM) Negative (06/23/24 7:55 AM) Negative (06/20/24 7:36 AM) UA Glucose [Negative] Negative (06/25/24 5:22 PM) Negative (06/23/24 7:55 AM) Negative (06/20/24 7:36 AM) Hct [40.0-50.0 %] 31.5 % *LOW* (06/30/24 6:08 AM) 29.9 % *LOW* (06/29/24 6:35 AM) 30.8 % *LOW* (06/28/24 6:25 AM) UA Bacteria [None Seen] Few (06/20/24 7:36 AM) Calcium Level [8.6-10.0 mg/dL] 9.1 mg/dL (06/30/24 6:08 AM) 8.9 mg/dL (06/29/24 6:35 AM) 9.1 mg/dL (06/28/24 6:25 AM) Seminole Absolute [0.11-0.70 x10^3/mcL] 0.65 x10^3/mcL (06/30/24 6:08 AM) 0.51 x10^3/mcL (06/29/24 6:35 AM) 0.64 x10^3/mcL (06/28/24 6:25 AM) Albumin Level [3.5-5.2 g/dL] 2.8 g/dL *LOW* (06/26/24 6:25 AM) 3.6 g/dL (06/20/24 7:52 AM) Protein Total [6.1-8.0 g/dL] 5.5 g/dL *LOW* (06/26/24 6:25 AM) 6.8 g/dL (06/20/24 7:52 AM) UA Protein [Negative] Negative (06/25/24 5:22 PM) Negative (06/23/24 7:55 AM) 2+ *ABN* (06/20/24 7:36 AM) MCH [27.5-32.1 pg] 28.7 pg (06/30/24 6:08 AM) 28.8 pg (06/29/24 6:35 AM) 28.6 pg (06/28/24 6:25 AM) Magnesium Level [1.60-2.60 mg/dL] 2.04 mg/dL (06/30/24 6:08 AM) 1.97 mg/dL (06/29/24 6:35 AM) 1.79 mg/dL (06/28/24 6:25 AM) Neutro Absolute [1.20-6.70 x10^3/mcL] 6.74 x10^3/mcL *HI* (06/30/24 6:08 AM) 4.34 x10^3/mcL (06/29/24 6:35 AM) 4.87 x10^3/mcL (06/28/24 6:25 AM) Bilirubin Total [<=1.20 mg/dL] <0.20 mg/dL (06/26/24 6:25 AM) 0.29 mg/dL (06/20/24 7:52 AM) Hgb [13.5-17.5 g/dL] 10.0 g/dL *LOW* (06/30/24 6:08 AM) 9.6 g/dL *LOW* (06/29/24 6:35 AM) 10.0 g/dL *LOW* (06/28/24 6:25 AM) Alk Phos [40-129 unit/L] 46 unit/L (06/26/24:25 AM) 54 unit/L (06/20/24 7:52 AM) UA Blood [Negative] Negative (06/25/24 5:22 PM) Trace *ABN* (06/23/24 7:55 AM) 3+ *ABN* (06/20/24 7:36 AM) MPV [6.0-10.0 fL] 9.8 fL (06/30/24 6:08 AM) 9.5 fL (06/29/24 6:35 AM) 9.6 fL (06/28/24 6:25 AM) UA Spec Grav [1.015] 1.010 *ABN* (06/25/24 5:22 PM) 1.015 (06/23/24 7:55 AM) 1.015 (06/20/24 7:36 AM) Bilirubin Direct [0.0-0.3 mg/dL] <0.2 mg/dL (06/26/24 6:25 AM) Platelets [150-400 x10^3/mcL] 348 x10^3/mcL (06/30/24 6:08 AM) 330 x10^3/mcL (06/29/24 6:35 AM) 338 x10^3/mcL (06/28/24 6:25 AM) CO2 [22-29 mmol/L] 29 mmol/L (06/30/24 6:08 AM) 27 mmol/L (06/29/24 6:35 AM) 28 mmol/L (06/28/24 6:25 AM) Eos Absolute [0.00-0.70 x10^3/mcL] 0.18 x10^3/mcL (06/30/24 6:08 AM) 0.23 x10^3/mcL (06/29/24 6:35 AM) 0.26 x10^3/mcL (06/28/24 6:25 AM) UA Squam Epithelial [0-2 /HPF] 0-2 /HPF (06/20/24 7:36 AM) UA pH [5.0] 6.0 *NA* (06/25/24 5:22 PM) 6.0 *NA* (06/23/24 7:55 AM) 6.5 *NA* (06/20/24 7:36 AM) eGFR Non-AA [>=60 mL/min/1.73 m2] 165 mL/min/1.73 m2 (06/30/24 6:08 AM) 182 mL/min/1.73 m2 (06/29/24 6:35 AM) 191 mL/min/1.73 m2 (06/28/24 6:25 AM) eGFR AA [>=60 mL/min/1.73 m2] 200 mL/min/1.73 m2 (06/30/24 6:08 AM) 220 mL/min/1.73 m2 (06/29/24 6:35 AM) 231 mL/min/1.73 m2 (06/28/24 6:25 AM) UA Appear [Clear] Clear (06/25/24 5:22 PM) Slightly Cloudy *ABN* (06/23/24 7:55 AM) Cloudy *ABN* (06/20/24 7:36 AM) Chloride Level [98-107 mmol/L] 104 mmol/L (06/30/24 6:08 AM) 106 mmol/L (06/29/24 6:35 AM) 107 mmol/L (06/28/24 6:25 AM) A/G Ratio 1.0 *NA* (06/26/24 6:25 AM) 1.1 *NA* (06/20/24 7:52 AM) BUN/Creat Ratio 22 ratio *NA* (06/30/24 6:08 AM) 11 ratio *NA* (06/29/24 6:35 AM) 9 ratio *NA* (06/28/24 6:25 AM) Imm Gran Absolute [0.00-0.04 x10^3/mcL] 0.05 x10^3/mcL *HI* (06/30/24 6:08 AM) 0.07 x10^3/mcL *HI* (06/29/24 6:35 AM) 0.06 x10^3/mcL *HI* (06/28/24 6:25 AM) Imm Gran Auto 0.5 /100(WBCs) *NA* (06/30/24 6:08 AM) 1.0 /100(WBCs) *NA* (06/29/24 6:35 AM) 0.8 /100(WBCs) *NA* (06/28/24 6:25 AM) UA Culture Ind? Not Indicated *NA* (06/25/24 5:22 PM) Indicated (06/23/24 7:55 AM) Indicated (06/20/24 7:36 AM) Creatinine Level [0.70-1.20 mg/dL] 0.52 mg/dL *LOW* (06/30/24 6:08 AM) 0.48 mg/dL *LOW* (06/29/24 6:35 AM) 0.46 mg/dL *LOW* (06/28/24 6:25 AM) Plt Estimation [Normal] Normal (06/20/24 7:52 AM) SARS-CoV-2 (COVID-19) PCR (Gxpert COVFLU [Negative] Negative (06/20/24 8:22 AM) RSV (Gxpert COVFLURSV) [Negative] Negative (06/20/24 8:22 AM) Flu A (Gxpert COVFLURSV) [Negative] Negative (06/20/24 8:22 AM) Flu B (Gxpert COVFLURSV) [Negative] Negative (06/20/24 8:22 AM) RDW-CV [11.6-14.8 %] 14.9 % *HI* (06/30/24 6:08 AM) 14.8 % (06/29/24 6:35 AM) 14.3 % (06/28/24 6:25 AM) Blood Culture [facility] 2 *NA*(06/23/24 10:50 AM) 3 *NA*(06/21/24 2:57 PM) 4 *ABN*(06/20/24 7:52 AM) Urine Culture [facility] 5 *NA*(06/23/24 7:55 AM) 6 *ABN*(06/20/24 7:36 AM) Blood Culture Prelim [facility] 7 *NA*(06/23/24 10:50 AM) 8 *NA*(06/21/24 2:57 PM) 9 *ABN*(06/20/24 7:52 AM) Urine Culture Prelim [facility] 10 *ABN*(06/20/24 7:36 AM) ANC [1.20-6.70 x10^3/mcL] 10.37 x10^3/mcL *HI* (06/20/24 7:52 AM) Trop T Gen 5 [<=22 ng/L] 64 ng/L 11 *CRIT* (06/20/24 7:48 AM) Anion Gap [5-15 mmol/L] 13 mmol/L (06/30/24 6:08 AM) 12 mmol/L (06/29/24 6:35 AM) 11 mmol/L (06/28/24 6:25 AM) Basophil Man 0 % *NA* (06/20/24 7:52 AM) Eos, Auto [1.0-7.0 /100(WBCs)] 1.8 /100(WBCs) (06/30/24 6:08 AM) 3.2 /100(WBCs) (06/29/24 6:35 AM) 3.5 /100(WBCs) (06/28/24 6:25 AM) Lactic Acid [0.5-2.2 mmol/L] 2.6 mmol/L *HI* (06/20/24 7:52 AM) UA Yeast [None Seen] Many *ABN* (06/23/24 7:55 AM) 1Result Comment: Critical value verified and results called to Tanmay May and read back at 1215_ by tech: _gar 2Result Comment: Test: Blood culture Specimen Source: Blood, Venous Specimen Type: Blood Specimen Date: 06/23/2024 10:50 AM Result Date: 06/28/2024 7:01 PM Result Status: Final result Resulting Lab: [facility] [address] CULTURE No growth at 120 hours Test performed at: [place] [address] 3Result Comment: Test: Blood culture Specimen Source: Blood, Venous Specimen Type: Blood Specimen Date: 06/21/2024 2:57 PM Result Date: 06/26/2024 11:01 PM Result Status: Final result Resulting Lab: [place] [address] CULTURE No growth at 120 hours Test performed at: [place] [address] 4Result Comment: Test: Blood culture Specimen Source: Blood, Venous Specimen Type: Blood Specimen Date: 06/20/2024 7:52 AM Result Date: 06/25/2024 8:11 AM Result Status: Final result Abnormal: Yes Resulting Lab: [place] [address] CULTURE Coagulase Negative Staphylococcus species (Abnormal) detected by PCR Interpretation of the importance of skin daphne such as Coag Negative Staph, Viridans Strep, Corynebacteria and other Gram Positive orgs from a single Blood Culture set requires clinical correlation. STAIN Aerobic Bottle: Gram positive cocci in clusters Test performed at: [place] [address] 5Result Comment: Test: Urine culture Specimen Source: Urine, Clean Catch Specimen Type: Urine Specimen Date: 06/23/2024 7:55 AM Result Date: 06/24/2024 1:07 PM Result Status: Final result Resulting Lab: [place] [id number] CULTURE 10,000-49,000 cfu/ml mixed mucosal daphne Test performed at: [place] [address] 6Result Comment: Test: Urine culture Specimen Source: Urine, Clean Catch Specimen Type: Urine Specimen Date: 06/20/2024 7:36 AM Result Date: 06/22/2024 7:50 AM Result Status: Final result Abnormal: Yes Resulting Lab: [facility] [address] CULTURE Greater than 100,000 cfu/ml Pseudomonas aeruginosa (Abnormal) SUSCEPTIBILITY Pseudomonas aeruginosa METHOD VITEK 2 METHOD AMIKACIN 2.0 ug/ml Susceptible CEFEPIME 2.0 ug/ml Susceptible CEFTAZIDIME 2.0 ug/ml Susceptible CIPROFLOXACIN 0.12 ug/ml Susceptible LEVOFLOXACIN 0.5 ug/ml Susceptible MEROPENEM <=0.25 ug/ml Susceptible PIPERACILLIN/TAZOBACTAM <=4.0 ug/ml Susceptible Test performed at: [place] [address] 7Result Comment: Test: Blood culture Specimen Source: Blood, Venous Specimen Type: Blood Specimen Date: 06/23/2024 10:50 AM Result Date: 06/27/2024 7:01 PM Result Status: Preliminary result Resulting Lab: [facility] [address] CULTURE No growth at 96 hours Test performed at: [place] [address] 8Result Comment: Test: Blood culture Specimen Source: Blood, Venous Specimen Type: Blood Specimen Date: 06/21/2024 2:57 PM Result Date: 06/25/2024 11:01 PM Result Status: Preliminary result Resulting Lab: [facility] [address] CULTURE No growth at 96 hours Test performed at: [place] [id number] 9Result Comment: Test: Blood culture Specimen Source: Blood, Venous Specimen Type: Blood Specimen Date: 06/20/2024 7:52 AM Result Date: 06/21/2024 7:58 AM Result Status: Preliminary result Abnormal: Yes Resulting Lab: [facility] [place] [address] CULTURE Coagulase Negative Staphylococcus species (Abnormal) detected by PCR Interpretation of the importance of skin daphne such as Coag Negative Staph, Viridans Strep, Corynebacteria and other Gram Positive orgs from a single Blood Culture set requires clinical correlation. STAIN Aerobic Bottle: Gram positive cocci in clusters Test performed at: [facility] [place] [address] 10Result Comment: Test: Urine culture Specimen Source: Urine, Clean Catch Specimen Type: Urine Specimen Date: 06/20/2024 7:36 AM Result Date: 06/21/2024 10:06 AM Result Status: Preliminary result Abnormal: Yes Resulting Lab: [facility] [place] [address] CULTURE Greater than 100,000 cfu/ml Pseudomonas aeruginosa (Abnormal) Test performed at: [facility] [place] [address] 11Result Comment: Critical value verified and results called to Stacie Reyes and read back at 0845 by tech: Radiology Reports * Exam Date Time Procedure Performing Provider Status 06/25/24 4:[address] Head w/ Contrast Ketty Gonzalez; Au th (Verified) Notes: (CT Head w/ Contrast) Reason For Exam: Hallucinosis CT Head w/ Contrast EXAMINATION: CT Head w/ Contrast CLINICAL HISTORY: Hallucinosis TECHNIQUE: CT head performed after the intravenous administration of 100cc of Omnipaque 350. COMPARISON: CT head without contrast 10/24/2023 FINDINGS: No confluent parenchymal or extra-axial hemorrhage. Evaluation for subarachnoid hemorrhage is limited due to contrast. There is no abnormal brain parenchymal enhancement. No midline shift, mass effect or hydrocephalus. Foramen magnum and basilar cisterns are patent. Pituitary gland is normal in size. Grossly normal intracranial vascular enhancement. There is mild parietal scalp soft tissue swelling eccentric to the left. There is a 1.7 x 0.7 cm left suboccipital lipoma without aggressive features. Orbits are normal. There is minimal right mastoid fluid and mild bilateral ethmoid mucosal thickening. IMPRESSION: No intracranial mass or mass effect. Thank you for letting us participate in the care of this patient. If you are a health care provider and have any questions regarding this report, please contact the number below. For patients who have questions please contact the health palliative care physician that requested your imaging first. Final Dictated by: Aimee, Generated Dictated DT/TM: 06/25/2024 4:56 pm Signed by: Inocencio Yu Signed (Electronic Signature): 06/25/2024 4:36 pm Transcribed by: GDU * Exam Date Time Procedure Performing Provider Status 06/23/24 7:44 AM XR Chest 1 View Denae Esquivel; Ofelia ( Verified) Notes: (XR Chest 1 View) Reason For Exam: AMS XR Chest 1 View EXAMINATION: XR Chest 1 View CLINICAL HISTORY: AMS TECHNIQUE: AP upright chest COMPARISON: June 20, 2024 FINDINGS: A left central venous access port remains in position with the tip at the cavoatrial junction. There is partial opacification of the left lower lobe. The visualized lungs are otherwise clear and well-expanded. Heart and pulmonary vasculature are normal. No acute osseous finding. IMPRESSION: Left lower lobe pneumonia versus atelectasis. Thank you for letting us participate in the care of this patient. If you are a health care provider and have any questions regarding this report, please contact the number below. For patients who have questions please contact the health palliative care physician that requested your imaging first. Final Dictated by: Aimee, Generated Dictated DT/TM: 06/23/2024 9:23 am Signed by: Inocencio Yu Signed (Electronic Signature): 06/23/2024 7:26 am Transcribed by: GDU * Exam Date Time Procedure Performing Provider Status 06/22/24 8:19 PM XR Shoulder Complete 2+ Views Left Silke Mcgee; Auth (Verified) Notes: (XR Shoulder Complete 2+ Views Left) Reason For Exam: shoulder pain XR Shoulder Complete 2+ Views Left EXAMINATION: XR Shoulder Complete 2+ Views Left CLINICAL HISTORY: shoulder pain TECHNIQUE: 3 views COMPARISON: Radiograph 11/15/2020. FINDINGS: No fracture or dislocation. Suboptimal Grashey view limits evaluation of the glenohumeral joint space. There is marginal osteophytes in inferior humeral head. Joint space narrowing of acromioclavicular joint. Unremarkable soft tissues The partially included lungs are clear. Left chest Mediport with tip terminating in the superior cavoatrial junction. Cervical spinal fusion hardware noted. IMPRESSION: 1. No acute osseous finding. 2. Osteoarthritis of glenohumeral and acromioclavicular joints. Thank you for letting us participate in the care of this patient. If you are a health care provider and have any questions regarding this report, please contact the number below. For patients who have questions please contact the health palliative care physician that requested your imaging first. Final Dictated by: Inocencio Yu Dictated DT/TM: 06/22/2024 10:49 pm Signed by: Inocencio Yu Signed (Electronic Signature): 06/22/2024 8:19 pm Transcribed by: GDU * Exam Date Time Procedure Performing Provider Status 06/20/24 9:[address] Abdomen and Pelvi s w/o Contrast Denae Esquivel; Auth (Verified) Notes: (CT Abdomen and Pelvis w/o Contrast) Reason For Exam: sepsis, kidney stones w/recent stent placement; uncertain if stent has been removed CT Abdomen and Pelvis w/o Contrast EXAMINATION: CT Abdomen and Pelvis w/o Contrast CLINICAL HISTORY: sepsis, kidney stones w/recent stent placement; uncertain if stent has been removed TECHNIQUE: Helical CT of the abdomen and pelvis without intravenous contrast. Oral contrast was not administered. Multiplanar reformatted images were generated. COMPARISON: CT abdomen pelvis 03/18/2024 FINDINGS: The absence of intravenous contrast limits the evaluation of solid viscera and vasculature. Evaluation limited by motion artifact. Lower chest: Motion artifact and subsegmental atelectasis in the lung bases. No airspace opacity to suggest pneumonia. No pleural effusions. Liver: Normal size and attenuation. Bile ducts: Nondilated. Gallbladder: Decompressed. No calcified gallstones. There is some fat stranding along the inferior margin of the liver abutting the gallbladder fossa likely tracking from the pararenal fascia. Pancreas: Normal attenuation. Spleen: Normal size. Adrenals: Normal. Right kidney/ureter: The right kidney is edematous and there is new moderate right hydronephrosis. There are multiple right-sided renal calculi, largest measuring 9 mm in the right upper pole. There is extensive perinephric and pararenal fascial edema. The right ureter is dilated along its entire course. No ureteral calculi. The tip of the suprapubic Beck catheter is positioned within the right UVJ orifice (axial series 3 image 141). Previously seen linear foreign body within the right renal collecting system is a longer present. Left kidney/ureter: Normal size. No hydronephrosis. There is mild perinephric fat stranding. No renal or ureteral calculi. Urinary Bladder: Suprapubic Beck catheter present within the decompressed bladder. The tip of the Beck catheters positioned within the right UVJ orifice. Small quantity of gas within the bladder lumen likely related to instrumentation. 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 Lymph Nodes: No lymphadenopathy. Bowel: Normal lower esophagus, stomach and duodenum. No air or fluid filled dilated loops of bowel to suggest obstruction. Moderate quantity of hyperdense stool within the sigmoid colon and Lassiter pouch. Moderate quantity of stool within the descending colon. Left lower quadrant colostomy. Normal terminal ileum. The appendix is partially visualized. There is fat stranding/edema tracking from the liver along the right pericolic gutter into the right lower quadrant abutting the appendix, which limits evaluation of the appendix. No bowel wall thickening. Peritoneum and retroperitoneum: Aforementioned right perinephric and pararenal fascial edema. There is edema along the inferior margin of the liver tracking inferiorly within the right paracolic gutter to the right lower quadrant. Small quantity of free fluid within the right paracolic gutter measuring simple fluid density (series 3 image 92). No loculated collection to suggest abscess. No free air. Abdominal wall: Left lower quadrant colostomy with no evidence of complication. Diastases the ventral abdominal wall fascia. Suprapubic Beck catheter entry site with no subcutaneous collection. There are bilateral posterior ischial decubitus ulcers with ulceration on the left extending to near the bone surface (series 3 image 154). Reproductive organs: Normal contours. Osseous structures: Multilevel disc and facet degenerative changes in the lumbar spine with straightening of lumbar lordosis. There is a background of diffuse osseous demineralization. Unchanged small lucent lesions within the bilateral iliac bones are unchanged compared to 03/18/2024. Unchanged patchy sclerosis within the posterior left ischial adjacent to the ulcer (axial series 3 image 154). IMPRESSION: 1. Suprapubic Beck catheter tip positioned in the right UVJ orifice with new moderate right hydronephrosis. 2. Right perinephric and periureteral edema. This can be related to obstruction versus urinary tract infection. Please correlate with urinalysis. 3. Nonobstructing right upper pole renal calculi measuring up to 9 mm. 4. Prior right upper pole linear foreign body is no longer present. 5. Posterior bilateral ischial decubitus ulcers. 6. Unchanged abnormal sclerosis within the posterior left ischial, concerning for either reactive osseous changes versus osteomyelitis. 7. Unchanged small lucent lesions within the iliac bones and diffuse osseous demineralization. Thank you for letting us participate in the care of this patient. If you are a health care provider and have any questions regarding this report, please contact the number below. For patients who have questions please contact the health palliative care physician that requested your imaging first. Electronically signed by: Rajinder Lam MD, [facility] ([phone]), at 06/20/2024 10:04 AM Final Dictated by: Inocencio Yu Dictated DT/TM: 06/20/2024 10:09 am Signed by: Inocencio Yu Signed (Electronic Signature): 06/20/2024 9:24 am Transcribed by: TIMUR * Exam Date Time Procedure Performing Provider Status 06/20/24 8:24 AM XR Chest 1 View Teresita Man; Aut h (Verified) Notes: (XR Chest 1 View) Reason For Exam: fever XR Chest 1 View EXAMINATION: XR Chest 1 View CLINICAL HISTORY: fever. (as entered by ordering provider in the order requisition) TECHNIQUE: Portable AP view of the chest COMPARISON: None FINDINGS: There is a left chest port with its tip projecting over expected location of the superior cavoatrial junction. There is partial visualization of upper thoracic spine fusion hardware. Normal cardiomediastinal and hilar silhouettes. No focal consolidation. No pleural effusion. No pneumothorax. IMPRESSION: No acute cardiopulmonary findings. Thank you for letting us participate in the care of this patient. If you are a health care provider and have any questions regarding this report, please contact the number below. For patients who have questions please contact the health palliative care physician that requested your imaging first. Electronically signed by: Eliane Stewart MD, [facility] ([phone]), at 06/20/2024 8:43 AM Final Dictated by: Aimee, Generated Dictated DT/TM: 06/20/2024 8:48 am Signed by: Aimee, Generated Signed (Electronic Signature): 06/20/2024 8:24 am Transcribed by: GDU Vital Signs Most recent to oldest [Reference Range]: 1 2 3 4 Temperature Axillary [35.2-36.7 Deg C] 36.9 Deg C *HI* (06/30/24 2:50 PM) 36.8 Deg C *HI* (06/30/24 9:13 AM) 37.0 Deg C *HI* (06/30/24 5:50 AM) Temperature Oral [35.8-37.3 Deg C] 37.2 Deg C (06/29/24 6:23 PM) 37.0 Deg C (06/29/24 11:28 AM) 36.9 Deg C (06/29/24 6:30 AM) Temperature Oral (DegF) [96.4-99.1 Deg F] 98.24 Deg F (06/26/24 6:00 PM) 98.24 Deg F (06/24/24 12:00 PM) 98.6 Deg F (06/23/24 6:18 PM) Temperature Temporal Artery [36-38 Deg C] 36.7 Deg C (06/27/24 9:03 AM) 36.9 Deg C (06/26/24 6:06 AM) 36.6 Deg C (06/25/24 5:53 PM) Temperature Temporal Artery (DegF) [97.3-100 Deg F] 97.88 Deg F (06/25/24 5:53 PM) 98.78 Deg F (06/25/24 12:00 PM) 98.6 Deg F (06/24/24 6:00 PM) Peripheral Pulse Rate [60-100 bpm] 94 bpm (06/30/24 2:50 PM) 95 bpm (06/30/24 9:13 AM) 77 bpm (06/30/24 5:50 AM) Heart Rate Monitored [60-100 bpm] 88 bpm (06/29/24 6:23 PM) 73 bpm (06/29/24 11:28 AM) 68 bpm (06/29/24 6:30 AM) Respiratory Rate [12-24 br/min] 19 br/min (06/30/24 2:50 PM) 19 br/min (06/30/24 9:13 AM) 20 br/min (06/30/24 5:50 AM) Blood Pressure [90-140/60-90 mmHg] 135/92mmHg (06/30/24 2:50 PM) 91/63mmHg (06/30/24 9:13 AM) 136/79mmHg (06/30/24 5:50 AM) Mean Arterial Pressure, Cuff 106 (06/30/24 2:50 PM) 72 (06/30/24 9:13 AM) 98 (06/30/24 5:50 AM) Blood Pressure Location Left arm (06/28/24 6:15 PM) Left arm (06/28/24 11:18 AM) Left arm (06/28/24 7:00 AM) Blood Pressure Method Automatic (06/28/24 6:15 PM) Automatic (06/28/24 11:18 AM) Automatic (06/28/24 7:00 AM) Mean Arterial Pressure Cuff 66 mmHg (06/21/24 5:52 AM) Weight Measured (lbs) 186.731 lb (06/30/24 5:50 AM) 189.156 lb (06/29/24 6:29 AM) Weight Dosing 90.500 kg (06/22/24 5:52 AM) Weight Estimated 100 kg (06/20/24 7:32 AM) BSA Measured 2.1 m2 (06/30/24 8:01 AM) 2.19 m2 (06/24/24 11:23 AM) 2.17 m2 (06/23/24 9:43 AM) Body Mass Index 23.96 kg/m2 (06/30/24 8:01 AM) 26.09 kg/m2 (06/24/24 11:23 AM) 25.61 kg/m2 (06/23/24 9:43 AM) Body Mass Index Estimated 31.92 kg/m2 (06/20/24 7:32 AM) Height/Length Estimated 177 cm (06/20/24 7:32 AM) Height 188 cm (06/30/24 8:01 AM) 188 cm (06/30/24 8:01 AM) 188 cm (06/30/24 8:01 AM) 188 cm (06/30/24 8:01 AM) Weight 84.7 kg (06/30/24 8:01 AM) 84.7 kg (06/30/24 8:01 AM) 84.7 kg (06/30/24 8:01 AM) 84.7 kg (06/30/24 8:01 AM) Social History Social History Type Response Smoking Status Smoking tobacco use: Never tobacco user;Not obtained due to cognitive impairment entered on: 03/28/24 Sex Male Hospital Discharge Instructions Patient Education 06/30/2024 12:54:21 Urinary Tract Infection, Adult Urinary Tract Infection, Adult A urinary tract infection (UTI) is an infection of any part of the urinary tract. The urinary tractincludes the kidneys, ureters, bladder, and urethra. These organs make, store, and get rid of urinein the body. An upper UTI affects the ureters and kidneys. A lower UTI affects the bladder and urethra. What are the causes? Most urinary tract infections are caused by bacteria in your genital area around your urethra, where urine leaves your body. These bacteria grow and cause inflammation of your urinary tract. What increases the risk? You are more likely to develop this condition if: ??? You have a urinary catheter that stays in place. ??? You are not able to control when you urinate or have a bowel movement (incontinence). ??? You are female and you: ??? Use a spermicide or diaphragm for control. ??? Have low estrogen levels. ??? Are . ??? You have certain genes that increase your risk. ??? You are sexually active. ??? You take antibiotic medicines. ??? You have a condition that causes your flow of urine to slow down, such as: ??? An enlarged prostate, if you are male. ??? Blockage in your urethra. ??? A kidney stone. ??? A nerve condition that affects your bladder control (neurogenic bladder). ??? Not getting enough to drink, or not urinating often. ??? You have certain medical conditions, such as: ??? Diabetes. ??? A weak disease-fighting system (immunesystem). ??? Sickle cell disease. ??? Gout. ??? Spinal cord injury. What are the signs or symptoms? Symptoms of this condition include: ??? Needing to urinate right away (urgency). ??? Frequent urination. This may include small amounts of urine each time you urinate. ??? Pain or burning with urination. ??? Blood in the urine. ??? Urine that smells bad or unusual. ??? Trouble urinating. ??? Cloudy urine. ??? Vaginal discharge, if you are female. ??? Pain in the abdomen or the lower back. You may also have: ??? Vomiting or a decreased appetite. ??? Confusion. ??? Irritability or tiredness. ??? A fever or chills. ??? Diarrhea. The first symptom in older adults may be confusion. In some cases, they may not have any symptoms until the infection has worsened. How is this diagnosed? This condition is diagnosed based on your medical history and a physical exam. You may also have other tests, including: ??? Urine tests. ??? Blood tests. ??? Tests for STIs (sexually transmitted infections). If you have had more than one UTI, a cystoscopy or imaging studies may be done to determine the cause of the infections. How is this treated? Treatment for this condition includes: ??? Antibiotic medicine. ??? Jrrm-nyy-kzickqt medicines to treat discomfort. ??? Drinking enough water to stay hydrated. If you have frequent infections or have other conditions such as a kidney stone, you may need to see a health care provider who specializes in the urinary tract (urologist). In rare cases, urinary tract infections can cause sepsis. Sepsis is a life- threatening condition that occurs when the body responds to an infection. Sepsis is treated in the hospital with IV antibiotics, fluids, and other medicines. Follow these instructions at home: Medicines ??? Take vnma-jsc-gqqmolh and prescription medicines only as told by your health care provider. ??? If you were prescribed an antibiotic medicine, take it as told by your health care provider. Donot stop using the antibiotic even if you start to feel better. General instructions ??? Make sure you: ??? Empty your bladder often and completely. Do not hold urine for long periods of time. ??? Empty your bladder after sex. ??? Wipe from front to back after urinating or having a bowel movement if you are female. Use each tissue only one time when you wipe. ??? Drink enough fluid to keep your urine pale yellow. ??? Keep all follow-up visits. This is important. Contact a health care provider if: ??? Your symptoms do not get better after 1???2 days. ??? Your symptoms go away and then return. Get help right away if: ??? You have severe pain in your back or your lower abdomen. ??? You have a fever or chills. ??? You have nausea or vomiting. Summary ??? A urinary tract infection (UTI) is an infection of any part of the urinary tract, which includes the kidneys, ureters, bladder, and urethra. ??? Most urinary tract infections are caused by bacteria in your genital area. ??? Treatment for this condition often includes antibiotic medicines. ??? If you were prescribed an antibiotic medicine, take it as told by your health care provider. Donot stop using the antibiotic even if you start to feel better. ??? Keep all follow-up visits. This is important. This information is not intended to replace advice given to you by your health care provider. Make sure you discuss any questions you have with your health care provider. Document Revised: 05/31/2021 Document Reviewed: 05/31/2021 [employer] Patient Education ?? 2022 [employer]. 06/30/2024 12:54:08 Community-Acquired Pneumonia, Adult Community-Acquired Pneumonia, Adult Pneumonia is a lung infection that causes inflammation and the buildup of mucus and fluids in the lungs. This may cause coughing and difficulty breathing. Community-acquired pneumonia is pneumonia that develops in people who are not, and have not recently been, in a hospital or other health care facility. Usually, pneumonia develops as a result of an illness that is caused by a virus, such as the commoncold and the flu (influenza). It can also be caused by bacteria or fungi. While the common cold andinfluenza can pass from person to person (are contagious), pneumonia itself is not considered contagious. What are the causes? This condition may be caused by: ??? Viruses. ??? Bacteria. ??? Fungi. What increases the risk? The following factors may make you more likely to develop this condition: ??? Being over age 65 or having certain medical conditions, such as: ??? A long-term (chronic) disease, such as: chronic obstructive pulmonary disease (COPD), asthma, heart failure, diabetes, or kidney disease. ??? A condition that increases the risk of breathing in (aspirating) mucus and other fluids from your mouth and nose. ??? A weakened body defense system (immune system). ??? Having had your spleen removed (splenectomy). The spleen is the organ that helps fight germs and infections. ??? Not cleaning your teeth and gums well (poor dental hygiene). ??? Using tobacco products. ??? Traveling to places where germs that cause pneumonia are present or being near certain animals or animal habitats that could have germs that cause pneumonia. What are the signs or symptoms? Symptoms of this condition include: ??? A dry cough or a wet (productive) cough. ??? A fever, sweating, or chills. ??? Chest pain, especially when breathing deeply or coughing. ??? Fast breathing, difficulty breathing, or shortness of breath. ??? Tiredness (fatigue) and muscle aches. How is this diagnosed? This condition may be diagnosed based on your medical history or a physical exam. You may also havetests, including: ??? Imaging, such as a chest X-ray or lung ultrasound. ??? Tests of: ??? The level of oxygen and other gases in your blood. ??? Mucus from your lungs (sputum). ??? Fluid around your lungs (pleural fluid). ??? Your urine. How is this treated? Treatment for this condition depends on many factors, such as the cause of your pneumonia, your medicines, and other medical conditions that you have. For most adults, pneumonia may be treated at home. In some cases, treatment must happen in a hospital and may include: ??? Medicines that are given by mouth (orally) or through an IV, including: ??? Antibiotic medicines, if bacteria caused the pneumonia. ??? Medicines that kill viruses (antiviral medicines), if a virus caused the pneumonia. ??? Oxygen therapy. Severe pneumonia, although rare, may require the following treatments: ??? Mechanical ventilation.This procedure uses a machine to help you breathe if you cannot breathe well on your own or maintain a safe level of blood oxygen. ??? Thoracentesis. This procedure removes any buildup of pleural fluid to help with breathing. Follow these instructions at home: Medicines ??? Take ezku-wmv-xaepuds and prescription medicines only as told by your health care provider. ??? Take cough medicine only if you have trouble sleeping. Cough medicine can prevent your body from removing mucus from your lungs. ??? If you were prescribed antibiotics, take them as told by your health care provider. Do not stoptaking the antibiotic even if you start to feel better. Lifestyle ??? Do not drink alcohol. ??? Do not use any products that contain nicotine or tobacco. These products include cigarettes, chewing tobacco, and vaping devices, such as e-cigarettes. If you need help quitting, ask your health care provider. ??? Eat a healthy diet. This includes plenty of vegetables, fruits, whole grains, low-fat dairy products, and lean protein. General instructions ??? Rest a lot and get at least 8 hours of sleep each night. ??? Sleep in a partly upright position at night. Place a few pillows under your head or sleep in a reclining chair. ??? Return to your normal activities as told by your health care provider. Ask your health care provider what activities are safe for you. ??? Drink enough fluid to keep your urine pale yellow. This helps to thin the mucus in your lungs. ??? If your throat is sore, gargle with a mixture of salt and water 3???4 times a day or as needed.To make salt water, completely dissolve ?1 tsp (3???6 g) of salt in 1 cup (237 mL) of warm water. ??? Keep all follow-up visits. How is this prevented? You can lower your risk of developing community-acquired pneumonia by: ??? Getting the pneumonia vaccine. There are different types and schedules of pneumonia vaccines. Ask your health care provider which option is best for you. Consider getting the pneumonia vaccine if: ??? You are older than 65 years of age. ??? You are 19???65 years of age and are receiving cancer treatment, have chronic lung disease, or have other medical conditions that affect your immune system. Ask your health care provider if this applies to you. ??? Getting your influenza vaccine every year. Ask your health care provider which type of vaccine is best for you. ??? Getting regular dental checkups. ??? Washing your hands often with soap and water for at least 20 seconds. If soap and water are notavailable, use hand port patrol officer. Contact a health care provider if: ??? You have a fever. ??? You have trouble sleeping because you cannot control your cough with cough medicine. Get help right away if: ??? Your shortness of breath becomes worse. ??? Your chest pain increases. ??? Your sickness becomes worse, especially if you are an older adult or have a weak immune system. ??? You cough up blood. These symptoms may be an emergency. Get help right away. Call 911. ??? Do not wait to see if the symptoms will go away. ??? Do not drive yourself to the hospital. Summary ??? Pneumonia is an infection of the lungs. ??? Community-acquired pneumonia develops in people who have not been in the hospital. It can be caused by bacteria, viruses, or fungi. ??? This condition may be treated with antibiotics or antiviral medicines. ??? Severe pneumonia may require a hospital stay and treatment to help with breathing. This information is not intended to replace advice given to you by your health care provider. Make sure you discuss any questions you have with your health care provider. Document Revised: 12/17/2022 Document Reviewed: 12/17/2022 [employer] Patient Education ?? 2022 [employer]. 06/30/2024 12:54:03 Delirium Delirium Delirium is a state of mental confusion. It comes on quickly and causes significant changes in a person's thinking and behavior. People with delirium usually have trouble paying attention to what is going on or knowing where they are. They may become very withdrawn or very emotional and unable to sit still. They may even see or feel things that are not there (hallucinations). Delirium is a sign of a serious underlying medical condition. What are the causes? Delirium occurs when something suddenly affects the signals that the brain sends out. Brain signalscan be affected by anything that puts severe stress on the body and brain and causes brain chemicals to be out of balance. The most common causes of delirium include: ??? Infections. These may be bacterial, viral, fungal, or protozoal. ??? Medicines. These include many xxyb-exd-iosqmqa and prescription medicines. ??? Recreational drugs. ??? Substance withdrawal. This occurs with sudden discontinuation of alcohol, certain medicines, orrecreational drugs. ??? Surgery and anesthesia. ??? Sudden vascular events, such as stroke and brain hemorrhage. ??? Other brain disorders, such as migraines, tumors, seizures, and physical head trauma. ??? Metabolic disorders, such as kidney or liver failure. ??? Low blood oxygen (anoxia). This may occur with lung disease, cardiac arrest, or carbon monoxidepoisoning. ??? Hormone imbalances (endocrinopathies), such as an overactive thyroid (hyperthyroidism) or underactive thyroid (hypothyroidism). ??? Vitamin deficiencies. What increases the risk? The following factors may make someone more likely to develop this condition: ??? Being a child. ??? Being an older person. ??? Living alone. ??? Having vision loss or hearing loss. ??? Having an existing brain disease, such as dementia. ??? Having long-lasting (chronic) medical conditions, such as heart disease. ??? Being hospitalized for long periods of time. What are the signs or symptoms? Delirium starts with a sudden change in a person's thinking or behavior. Symptoms include: ??? Not being able to stay awake (drowsiness) or pay attention. ??? Being confused about places, time, and people. ??? Forgetfulness. ??? Having extreme energy levels. These may be low or high. ??? Changes in sleep patterns. ??? Extreme mood swings, such as sudden anger or anxiety. ??? Focusing on things or ideas that are not important. ??? Rambling and senseless talking. ??? Difficulty speaking, understanding speech, or both. ??? Hallucinations. ??? Tremor or unsteady gait. Symptoms come and go throughout the day and are often worse at the end of the day. How is this diagnosed? People with delirium may not realize that they have the condition. Often, a family member or healthcare provider is the first person to notice the changes. This condition may be diagnosed based on aphysical exam, health history, and tests. ??? The health care provider will obtain a detailed history. This may include questions about: ??? Current symptoms. ??? Medical conditions that you have. ??? Medicines. ??? Drug use. ??? The health care provider will perform a mental status test by: ??? Asking questions to check for confusion. ??? Watching for abnormal behavior. ??? The health care provider may also order lab tests or additional studies to determine the cause of the delirium. How is this treated? Treatment of delirium depends on the cause and severity. Delirium usually goes away within days or weeks of treating the underlying cause. In the meantime, do not leave the person alone because he orshe may accidentally cause self-harm. This condition may be treated with supportive care, such as: ??? Increased light during the day and decreased light at night. ??? Low noise level. ??? Uninterrupted sleep. ??? A regular daily schedule. ??? Clocks and calendars to help with orientation. ??? Familiar objects, including the person's pictures and clothing. ??? Frequent visits from familiar family and friends. ??? A healthy diet. ??? Gentle exercise. In more severe cases of delirium, medicine may be prescribed to help the person keep calm and thinkmore clearly. Follow these instructions at home: ??? Continue supportive care as told by a health care provider. ??? Take bqgw-dos-hwmsuwp and prescription medicines only as told by your health care provider. ??? Ask a health care provider before using herbs or supplements. ??? Do not use alcohol or illegal drugs. ??? Keep all follow-up visits. This is important. Contact a health care provider if: ??? Symptoms do not get better or they become worse. ??? New symptoms of delirium develop. ??? Caring for the person at home does not seem safe. ??? Eating, drinking, or communicating stops. ??? There are side effects of medicines, such as changes in sleep patterns, dizziness, weight gain,restlessness, movement changes, or tremors. Get help right away if: ??? The person has thoughts of harming self or harming others. ??? There are serious side effects of medicine, such as: ??? Swelling of the face, lips, tongue, or throat. ??? Fever, confusion, muscle spasms, or seizures. If you ever feel like a loved one may hurt himself or herself or others, or shares thoughts about taking his or her own life, get help right away. You can go to your nearest emergency department or: ??? Call your local emergency services (911 in the [place] ??? Call a suicide crisis helpline, such as the National Suicide Prevention Lifeline at or 129 in the [place] This is open 24 hours a day in the [place] ??? Text the Crisis Text Line at 632213 (in the [place] Summary ??? Delirium is a state of mental confusion. It comes on quickly and causes significant changes in a person's thinking and behavior. ??? Delirium is a sign of a serious underlying medical condition. ??? Certain medical conditions or a long hospital stay may increase the risk of developing delirium. ??? Treatment of delirium involves treating the underlying cause and providing supportive treatments, such as a calm and familiar environment. This information is not intended to replace advice given to you by your health care provider. Make sure you discuss any questions you have with your health care provider. Document Revised: 05/14/2022 Document Reviewed: 01/25/2021 [employer] Patient Education ?? 2022 [employer] Follow Up Care 06/20/2024 07:31:17 With:Genevieve Baez Address: [address] [place] [id number]- When:07/14/2024 10:00:00 Comments:Appointment with Li Herrmann?? Discharge instructions * Natalie Alba: PERFORM Event Display: Discharge Instructions Authored Date: [id number] SOPHIE NEWTON :1965 Age:59 years Sex:Male Visit Date:06/20/2024 Primary [facility] Physician: [facility] Discharge Instructions We would like to thank you for allowing us to assist you with your healthcare needs. The following includes patient education materials and information regarding your injury/illness. Your Next Steps Instructions From Your Care Team Continue your medications as directed,??please review carefully as??there have been some changes. Continue??to encourage fluids to stay well-hydrated drinking at least 6 to 8 glasses of water daily??or more Follow-up with primary care provider Follow Up Appointments Follow Up with??Genevieve Baez When:??07/14/2024 11:00 AM EDT Why: Appointment with Li Herrmann?? Where: [address] [place] [id number] Future Orders XR Chest 1 View, 06/26/24, Routine, Reason: confusion, fevers - follow up pneumonia, Transport Mode: Portable The Following Treatments Have Been Arranged for You Current Home Treatments - Wound care Medications What How Much When Instructions Next Dose New OLANZapine (ZyPREXA 5 mg oral tablet) 1 tab Oral (given by mouth) Every night at bedtime Pickup at [id number] Changed LORazepam (LORazepam 0.5 mg oral tablet) 1 tab Oral (given by mouth) 2 times a day Changed LORazepam (LORazepam 1 mg oral tablet) 1 tab Oral (given by mouth) 2 times a day as needed for as needed for anxiety Changed divalproex sodium (divalproex sodium 250 mg oral tablet, extended release) 3 tab Oral (given by mouth) 2 times a day Pickup at [facility] Changed mirabegron (Myrbetriq 25 mg oral tablet, extended release) 1 tab Oral (given by mouth) Every day do not crush or chew ?? Unchanged acetaminophen (acetaminophen 325 mg oral capsule) [...] a day as needed for pain Unchanged docusate (Doculase 100 mg oral capsule) 1 Capsules Oral (given by mouth) 3 times a day as needed for as needed for constipation Unchanged lactobacillus acidophilus and bulgaricus (Floranex oral tablet) 1 tab Oral (given by mouth) 3 times a day Unchanged melatonin (melatonin 10 mg oral tablet) 1 tab Oral (given by mouth) Every night at bedtime as needed for as needed for insomnia Unchanged multivitamin (Multi Vitamin+) 1 tab Oral (given by mouth) Every day Unchanged naloxone (naloxone 4 mg/ 0.1 mL nasal spray) 1 Sprays Nasal (into the nose) - Both Sides As Directed as needed for overdose use one spray in one nostril. if an additional dose is needed, alternate nostril ?? Unchanged pregabalin (pregabalin 25 mg oral capsule) 1 Capsules Oral (given by mouth) 3 times a day Unchanged senna 17.2 Milligrams Oral (given by mouth) Every day Unchanged tamsulosin (tamsulosin 0.4 mg oral capsule) 1 Capsules Oral (given by mouth) Every night at bedtime Unchanged traZODone (traZODone 50 mg oral tablet) 2 tabs Oral (given by mouth) Every night at bedtime Pharmacy Information [id number]: [address] [place], [place] [id number] [phone] ?? What How Much When Comments Stop Taking albuterol (albuterol 0.63 mg/ 3 mL (0.021%) inhalation solution) 3 Milliliters Nebulized inhalation (inhale using nebulizer) Every 4 hours as needed for shortness of breath Stop Taking baclofen (baclofen 20 mg oral tablet) 1 tab Oral (given by mouth) 3 times a day Stop Taking ciprofloxacin (ciprofloxacin 500 mg oral tablet) Stop Taking magnesium chloride-calcium (as carbonate) (MagDelay) 2 tab Oral (given by mouth) 2 times a day Stop Taking methenamine (Hiprex 1 g oral tablet) 1 tab Oral (given by mouth) 3 times a day Stop Taking multivitamin with fluoride (Vitamin D with Fluoride 0.25 mg/ mL oral liquid) Stop Taking QUEtiapine 100 Milligrams Oral (given by mouth) Every night at bedtime Stop Taking zolpidem (zolpidem 10 mg oral tablet) Your Summary Your Care Team Admitting Physician - Thom Smallwood MD Attending Physician - Thom Smallwood MD Primary Care Physician - Genevieve Baez Referring Physician - Genevieve Baez Your Diagnosis Acute delirium Acute urinary tract infection Left lower lobe pneumonia Pressure ulcers of skin of multiple topographic sites Bacteremia of undetermined etiology Chronic incomplete paraplegia Problems Ongoing - Any problem that you are currently receiving treatment for. Acute UTI (urinary tract infection) Chronic incomplete paraplegia Chronic suprapubic catheter Decubitus ulcer of buttock Morbid obesity Paraplegia Urinary tract infection Tests Performed/Pending .Manual Differential (COTT) Automated Diff Blood Culture [facility] BMP CBC w/ Diff CBC w/ Manual Diff CMP Lactic Acid Level LFT Magnesium Level SARS-CoV-2 (COVID-19)/Flu/RSV (GeneXpert) Troponin T Gen 5 Urinalysis Microscopic Urinalysis With Micro if Indicated and Culture if Indicated Urine Culture [facility] Valproic Acid Level?-- Results Pending -- Vancomycin Level Vancomycin Level Trough CT Abdomen and Pelvis w/o Contrast CT Head w/ Contrast XR Chest 1 View XR Shoulder Complete 2+ Views Left Discharge Vitals Temperature??(Axillary) 98.2 ??F (36.8 ??C) Heart Rate??(Peripheral) 95 Respiratory Rate?? 19 Blood Pressure?? 91/63?? SpO2?? 90% Height?? 74.02 in (188 cm) Height?? 74.02 in (188 cm) Height?? 74.02 in (188 cm) Height?? 74.02 in (188 cm) Weight?? 186.76 lb (84.7 kg) Weight?? 186.76 lb (84.7 kg) Weight?? 186.76 lb (84.7 kg) Weight?? 186.76 lb (84.7 kg) BMI?? 23.96 Allergies No Known Medication Allergies Education Materials Urinary Tract Infection, Adult A urinary tract infection (UTI) is an infection of any part of the urinary tract. The urinary tractincludes the kidneys, ureters, bladder, and urethra. These organs make, store, and get rid of urinein the body. An upper UTI affects the ureters and kidneys. A lower UTI affects the bladder and urethra. What are the causes? Most urinary tract infections are caused by bacteria in your genital area around your urethra, where urine leaves your body. These bacteria grow and cause inflammation of your urinary tract. What increases the risk? You are more likely to develop this condition if: ? You have a urinary catheter that stays in place. ? You are not able to control when you urinate or have a bowel movement (incontinence). ? You are female and you: ? Use a spermicide or diaphragm for control. ? Have low estrogen levels. ? Are . ? You have certain genes that increase your risk. ? You are sexually active. ? You take antibiotic medicines. ? You have a condition that causes your flow of urine to slow down, such as: ? An enlarged prostate, if you are male. ? Blockage in your urethra. ? A kidney stone. ? A nerve condition that affects your bladder control (neurogenic bladder). ? Not getting enough to drink, or not urinating often. ? You have certain medical conditions, such as: ? Diabetes. ? A weak disease-fighting system (immunesystem). ? Sickle cell disease. ? Gout. ? Spinal cord injury. What are the signs or symptoms? Symptoms of this condition include: ? Needing to urinate right away (urgency). ? Frequent urination. This may include small amounts of urine each time you urinate. ? Pain or burning with urination. ? Blood in the urine. ? Urine that smells bad or unusual. ? Trouble urinating. ? Cloudy urine. ? Vaginal discharge, if you are female. ? Pain in the abdomen or the lower back. You may also have: ? Vomiting or a decreased appetite. ? Confusion. ? Irritability or tiredness. ? A fever or chills. ? Diarrhea. The first symptom in older adults may be confusion. In some cases, they may not have any symptoms until the infection has worsened. How is this diagnosed? This condition is diagnosed based on your medical history and a physical exam. You may also have other tests, including: ? Urine tests. ? Blood tests. ? Tests for STIs (sexually transmitted infections). If you have had more than one UTI, a cystoscopy or imaging studies may be done to determine the cause of the infections. How is this treated? Treatment for this condition includes: ? Antibiotic medicine. ? Crxq-yqt-afnzztf medicines to treat discomfort. ? Drinking enough water to stay hydrated. If you have frequent infections or have other conditions such as a kidney stone, you may need to see a health care provider who specializes in the urinary tract (urologist). In rare cases, urinary tract infections can cause sepsis. Sepsis is a life- threatening condition that occurs when the body responds to an infection. Sepsis is treated in the hospital with IV antibiotics, fluids, and other medicines. Follow these instructions at home: Medicines ? Take eklo-lyu-pnfrbtr and prescription medicines only as told by your health care provider. ? If you were prescribed an antibiotic medicine, take it as told by your health care provider. Do notstop using the antibiotic even if you start to feel better. General instructions ? Make sure you: ? Empty your bladder often and completely. Do not hold urine for long periods of time. ? Empty your bladder after sex. ? Wipe from front to back after urinating or having a bowel movement if you are female. Use each tissue only one time when you wipe. ? Drink enough fluid to keep your urine pale yellow. ? Keep all follow-up visits. This is important. Contact a health care provider if: ? Your symptoms do not get better after 1???2 days. ? Your symptoms go away and then return. Get help right away if: ? You have severe pain in your back or your lower abdomen. ? You have a fever or chills. ? You have nausea or vomiting. Summary ? A urinary tract infection (UTI) is an infection of any part of the urinary tract, which includes the kidneys, ureters, bladder, and urethra. ? Most urinary tract infections are caused by bacteria in your genital area. ? Treatment for this condition often includes antibiotic medicines. ? If you were prescribed an antibiotic medicine, take it as told by your health care provider. Do notstop using the antibiotic even if you start to feel better. ? Keep all follow-up visits. This is important. This information is not intended to replace advice given to you by your health care provider. Make sure you discuss any questions you have with your health care provider. Document Revised: 05/31/2021 Document Reviewed: 05/31/2021 [employer] Patient Education ?? 2022 [employer]. Community-Acquired Pneumonia, Adult Pneumonia is a lung infection that causes inflammation and the buildup of mucus and fluids in the lungs. This may cause coughing and difficulty breathing. Community-acquired pneumonia is pneumonia that develops in people who are not, and have not recently been, in a hospital or other health care facility. Usually, pneumonia develops as a result of an illness that is caused by a virus, such as the commoncold and the flu (influenza). It can also be caused by bacteria or fungi. While the common cold andinfluenza can pass from person to person (are contagious), pneumonia itself is not considered contagious. What are the causes? This condition may be caused by: ? Viruses. ? Bacteria. ? Fungi. What increases the risk? The following factors may make you more likely to develop this condition: ? Being over age 65 or having certain medical conditions, such as: ? A long-term (chronic) disease, such as: chronic obstructive pulmonary disease (COPD), asthma, heartfailure, diabetes, or kidney disease. ? A condition that increases the risk of breathing in (aspirating) mucus and other fluids from your mouth and nose. ? A weakened body defense system (immune system). ? Having had your spleen removed (splenectomy). The spleen is the organ that helps fight germs and infections. ? Not cleaning your teeth and gums well (poor dental hygiene). ? Using tobacco products. ? Traveling to places where germs that cause pneumonia are present or being near certain animals or animal habitats that could have germs that cause pneumonia. What are the signs or symptoms? Symptoms of this condition include: ? A dry cough or a wet (productive) cough. ? A fever, sweating, or chills. ? Chest pain, especially when breathing deeply or coughing. ? Fast breathing, difficulty breathing, or shortness of breath. ? Tiredness (fatigue) and muscle aches. How is this diagnosed? This condition may be diagnosed based on your medical history or a physical exam. You may also havetests, including: ? Imaging, such as a chest X-ray or lung ultrasound. ? Tests of: ? The level of oxygen and other gases in your blood. ? Mucus from your lungs (sputum). ? Fluid around your lungs (pleural fluid). ? Your urine. How is this treated? Treatment for this condition depends on many factors, such as the cause of your pneumonia, your medicines, and other medical conditions that you have. For most adults, pneumonia may be treated at home. In some cases, treatment must happen in a hospital and may include: ? Medicines that are given by mouth (orally) or through an IV, including: ? Antibiotic medicines, if bacteria caused the pneumonia. ? Medicines that kill viruses (antiviral medicines), if a virus caused the pneumonia. ? Oxygen therapy. Severe pneumonia, although rare, may require the following treatments: ? Mechanical ventilation.This procedure uses a machine to help you breathe if you cannot breathe wellon your own or maintain a safe level of blood oxygen. ? Thoracentesis. This procedure removes any buildup of pleural fluid to help with breathing. Follow these instructions at home: Medicines ? Take wdvp-pkm-kxbfcjg and prescription medicines only as told by your health care provider. ? Take cough medicine only if you have trouble sleeping. Cough medicine can prevent your body from removing mucus from your lungs. ? If you were prescribed antibiotics, take them as told by your health care provider. Do not stop taking the antibiotic even if you start to feel better. Lifestyle ? Do not drink alcohol. ? Do not use any products that contain nicotine or tobacco. These products include cigarettes, chewing tobacco, and vaping devices, such as e-cigarettes. If you need help quitting, ask your health careprovider. ? Eat a healthy diet. This includes plenty of vegetables, fruits, whole grains, low-fat dairy products, and lean protein. General instructions ? Rest a lot and get at least 8 hours of sleep each night. ? Sleep in a partly upright position at night. Place a few pillows under your head or sleep in a reclining chair. ? Return to your normal activities as told by your health care provider. Ask your health care provider what activities are safe for you. ? Drink enough fluid to keep your urine pale yellow. This helps to thin the mucus in your lungs. ? If your throat is sore, gargle with a mixture of salt and water 3???4 times a day or as needed. To make salt water, completely dissolve ?1 tsp (3???6 g) of salt in 1 cup (237 mL) of warm water. ? Keep all follow-up visits. How is this prevented? You can lower your risk of developing community-acquired pneumonia by: ? Getting the pneumonia vaccine. There are different types and schedules of pneumonia vaccines. Ask your health care provider which option is best for you. Consider getting the pneumonia vaccine if: ? You are older than 65 years of age. ? You are 19???65 years of age and are receiving cancer treatment, have chronic lung disease, or haveother medical conditions that affect your immune system. Ask your health care provider if this applies to you. ? Getting your influenza vaccine every year. Ask your health care provider which type of vaccine is best for you. ? Getting regular dental checkups. ? Washing your hands often with soap and water for at least 20 seconds. If soap and water are not available, use hand port patrol officer. Contact a health care provider if: ? You have a fever. ? You have trouble sleeping because you cannot control your cough with cough medicine. Get help right away if: ? Your shortness of breath becomes worse. ? Your chest pain increases. ? Your sickness becomes worse, especially if you are an older adult or have a weak immune system. ? You cough up blood. These symptoms may be an emergency. Get help right away. Call 911. ? Do not wait to see if the symptoms will go away. ? Do not drive yourself to the hospital. Summary ? Pneumonia is an infection of the lungs. ? Community-acquired pneumonia develops in people who have not been in the hospital. It can be causedby bacteria, viruses, or fungi. ? This condition may be treated with antibiotics or antiviral medicines. ? Severe pneumonia may require a hospital stay and treatment to help with breathing. This information is not intended to replace advice given to you by your health care provider. Make sure you discuss any questions you have with your health care provider. Document Revised: 12/17/2022 Document Reviewed: 12/17/2022 [employer] Patient Education ?? 2022 [employer] Delirium Delirium is a state of mental confusion. It comes on quickly and causes significant changes in a person's thinking and behavior. People with delirium usually have trouble paying attention to what is going on or knowing where they are. They may become very withdrawn or very emotional and unable to sit still. They may even see or feel things that are not there (hallucinations). Delirium is a sign of a serious underlying medical condition. What are the causes? Delirium occurs when something suddenly affects the signals that the brain sends out. Brain signalscan be affected by anything that puts severe stress on the body and brain and causes brain chemicals to be out of balance. The most common causes of delirium include: ? Infections. These may be bacterial, viral, fungal, or protozoal. ? Medicines. These include many hhet-dkd-yephwfp and prescription medicines. ? Recreational drugs. ? Substance withdrawal. This occurs with sudden discontinuation of alcohol, certain medicines, or recreational drugs. ? Surgery and anesthesia. ? Sudden vascular events, such as stroke and brain hemorrhage. ? Other brain disorders, such as migraines, tumors, seizures, and physical head trauma. ? Metabolic disorders, such as kidney or liver failure. ? Low blood oxygen (anoxia). This may occur with lung disease, cardiac arrest, or carbon monoxide poisoning. ? Hormone imbalances (endocrinopathies), such as an overactive thyroid (hyperthyroidism) or underactive thyroid (hypothyroidism). ? Vitamin deficiencies. What increases the risk? The following factors may make someone more likely to develop this condition: ? Being a child. ? Being an older person. ? Living alone. ? Having vision loss or hearing loss. ? Having an existing brain disease, such as dementia. ? Having long-lasting (chronic) medical conditions, such as heart disease. ? Being hospitalized for long periods of time. What are the signs or symptoms? Delirium starts with a sudden change in a person's thinking or behavior. Symptoms include: ? Not being able to stay awake (drowsiness) or pay attention. ? Being confused about places, time, and people. ? Forgetfulness. ? Having extreme energy levels. These may be low or high. ? Changes in sleep patterns. ? Extreme mood swings, such as sudden anger or anxiety. ? Focusing on things or ideas that are not important. ? Rambling and senseless talking. ? Difficulty speaking, understanding speech, or both. ? Hallucinations. ? Tremor or unsteady gait. Symptoms come and go throughout the day and are often worse at the end of the day. How is this diagnosed? People with delirium may not realize that they have the condition. Often, a family member or healthcare provider is the first person to notice the changes. This condition may be diagnosed based on aphysical exam, health history, and tests. ? The health care provider will obtain a detailed history. This may include questions about: ? Current symptoms. ? Medical conditions that you have. ? Medicines. ? Drug use. ? The health care provider will perform a mental status test by: ? Asking questions to check for confusion. ? Watching for abnormal behavior. ? The health care provider may also order lab tests or additional studies to determine the cause of the delirium. How is this treated? Treatment of delirium depends on the cause and severity. Delirium usually goes away within days or weeks of treating the underlying cause. In the meantime, do not leave the person alone because he orshe may accidentally cause self-harm. This condition may be treated with supportive care, such as: ? Increased light during the day and decreased light at night. ? Low noise level. ? Uninterrupted sleep. ? A regular daily schedule. ? Clocks and calendars to help with orientation. ? Familiar objects, including the person's pictures and clothing. ? Frequent visits from familiar family and friends. ? A healthy diet. ? Gentle exercise. In more severe cases of delirium, medicine may be prescribed to help the person keep calm and thinkmore clearly. Follow these instructions at home: ? Continue supportive care as told by a health care provider. ? Take ngay-fed-tbxepqm and prescription medicines only as told by your health care provider. ? Ask a health care provider before using herbs or supplements. ? Do not use alcohol or illegal drugs. ? Keep all follow-up visits. This is important. Contact a health care provider if: ? Symptoms do not get better or they become worse. ? New symptoms of delirium develop. ? Caring for the person at home does not seem safe. ? Eating, drinking, or communicating stops. ? There are side effects of medicines, such as changes in sleep patterns, dizziness, weight gain, restlessness, movement changes, or tremors. Get help right away if: ? The person has thoughts of harming self or harming others. ? There are serious side effects of medicine, such as: ? Swelling of the face, lips, tongue, or throat. ? Fever, confusion, muscle spasms, or seizures. If you ever feel like a loved one may hurt himself or herself or others, or shares thoughts about taking his or her own life, get help right away. You can go to your nearest emergency department or: ? Call your local emergency services (911 in the [place] ? Call a suicide crisis helpline, such as the National Suicide Prevention Lifeline at or 112 in the [place] This is open 24 hours a day in the [place] ? Text the Crisis Text Line at 219621 (in the [place] Summary ? Delirium is a state of mental confusion. It comes on quickly and causes significant changes in a person's thinking and behavior. ? Delirium is a sign of a serious underlying medical condition. ? Certain medical conditions or a long hospital stay may increase the risk of developing delirium. ? Treatment of delirium involves treating the underlying cause and providing supportive treatments, such as a calm and familiar environment. This information is not intended to replace advice given to you by your health care provider. Make sure you discuss any questions you have with your health care provider. Document Revised: 05/14/2022 Document Reviewed: 01/25/2021 [employer] Patient Education ?? 2022 [employer] Patient/Pool Hand Signature Patient Name:NEWTON BARRIOS JR I have received this information and my questions have been answered. Patient/Pool Hand Name: Patient/Pool Hand Signature: Relationship to Patient: Witness Name/Signature: Date: Electronically Signed on: 06/30/2024 14:04 EDT Signed by:RACHELLE Consult note * Massiel Miller PROFESSOR OF HISTORY: PERFORM Event Display: Consultation Note Generic Authored Date: [id number] NEWTON BARRIOS JR :1965 Age:59 years Sex:Male Visit Date:06/20/2024 Primary Care Physician: Genevieve Baez Chief Complaint Patient presents from a senior living with complaints of altered mental status and blood in urine, hasfrequent UTI's Reason for Consultation Consult requested by Dr. Smallwood in the setting of acute delirium.?? History of Present Illness Newton was admitted on 06/20/2024 with confusion, fever and chills, and blood in his urine.?? He was started on imipenem and vancomycin for urinary tract infection.?? Despite treatment of the UTI, Newton continues to have symptoms of delirium to include confusion, hallucinations,??paranoia and persecutory delusions.?His family reports that this happens??during hares episodes of acute georgina. ??He does not have a documented history of??a mood disorder. Physical Exam Vitals & Measurements T:??37.4?C ??(Axillary)?? TMIN:??36.7?C ??(Oral)?? TMAX:??37.4?C ??(Axillary)?? HR:??91??(Peripheral)?? RR:??19?? BP:??172/110?? SpO2:??98%?? WT:??91.1??kg?? Pain Score:??0?? O2 Therapy:??Room air?? Assessment/Plan 6.??Acute delirium??R41.0 Patient's delirium may be multifactorial.?? Causes include??residual delirium??from his urinary tract infection??drug-induced delirium??following antibiotic therapy.?? He is currently on Depakote 500mg BID.?? His VPA was drawn on 06/26/24 and his level is 30.?? The target??is 80-90.?? He is also prescribed Seroquel, risperidone, and trazodone for sleep.?My recommendations are as follows: ?? 1.?? Increase Depakote to 750 mg BID and recheck VPA in 5 days. 2.?? Discontinue risperidone and quetiapine.?? Start olanzapine 5 mg QD and titrate in 2.5 mg increments every 2 days until symptoms improve.?? Use olanzapine 2.5 mg BID PRN for agitation. 3.?? Increase trazodone to 200 mg QHS. ?? 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 Problem List/Past Medical History Ongoing Acute UTI (urinary tract infection) Chronic incomplete paraplegia Chronic suprapubic catheter Decubitus ulcer of buttock Morbid obesity Paraplegia Urinary tract infection Historical No qualifying data Medications Inpatient acetaminophen, 650 mg= 2 tab, Oral, every 4 hr, PRN Dextrose 5% with 0.45% NaCl and KCl 20 mEq/L 1,000 mL, 1000 mL, IV diclofenac 1% topical gel, 1 g= 1 maria e, Topical, QID, PRN divalproex sodium, 750 mg= 3 tab, Oral, BID docusate, 100 mg= 1 cap, Oral, TID, PRN enoxaparin, 40 mg= 0.4 mL, Subcutaneous, every 24 hr (angela) fluconazole, 200 mg= 2 tab, Oral, Daily Gemtesa, 75 mg= 1 tab, Oral, Daily imipenem-cilistatin IV lactobacillus acidophilus and bulgaricus oral tablet, 1 tab, Oral, With Meals LORazepam, 1 mg= 1 tab, Oral, TID LORazepam, 1 mg= 1 tab, Oral, every 4 hr, PRN Magnesium Chloride With Calcium, 64 mg= 1 tab, Oral, BID melatonin 3 mg oral tablet, 9 mg= 3 tab, Oral, every night at bedtime, PRN multivitamin adult, oral tablet, 1 tab, Oral, Daily pregabalin, 25 mg= 1 cap, Oral, TID senna, 17.2 mg= 2 tab, Oral, Daily tamsulosin, 0.4 mg= 1 cap, Oral, every night at bedtime traZODone, 200 mg= 4 tab, Oral, every night at bedtime vancomycin Vitamin C, 250 mg= 0.5 tab, Oral, BID Vitamin D3, 25 mcg= 1 tab, Oral, Daily ZyPREXA, 2.5 mg= 0.5 tab, Oral, BID, PRN ZyPREXA, 5 mg= 1 tab, Oral, every night at bedtime Home acetaminophen 325 mg oral capsule, 650 mg= 2 cap, Oral, every 6 hr, PRN divalproex sodium 500 mg oral tablet, extended release, 500 mg= 1 tab, Oral, BID Doculase 100 mg oral capsule, 100 mg= 1 cap, Oral, TID, PRN Floranex oral tablet, 1 tab, Oral, TID LORazepam 1 mg oral tablet, 1 mg= 1 tab, Oral, BID, PRN LORazepam 1 mg oral tablet, 1 mg= 1 tab, Oral, TID melatonin 10 mg oral tablet, 10 mg= 1 tab, Oral, every night at bedtime, PRN Multi Vitamin+, 1 tab, Oral, Daily Myrbetriq 25 mg oral tablet, extended release, 25 mg= 1 tab, Oral, Daily naloxone 4 mg/0.1 mL nasal spray, 1 sprays, Nostril-Both, As Directed, PRN pregabalin 25 mg oral capsule, 25 mg= 1 cap, Oral, TID QUEtiapine, 100 mg, Oral, every night at bedtime senna, 17.2 mg, Oral, Daily tamsulosin 0.4 mg oral capsule, 0.4 mg= 1 cap, Oral, every night at bedtime traZODone 50 mg oral tablet, 2 tabs, Oral, every night at bedtime Vitamin C, 250 mg, Oral, BID Vitamin D3 1000 intl units oral tablet, 25 mcg= 1 tab, Oral, Daily Voltaren 1% topical gel, 1 maria e, Topical, QID, PRN Allergies No Known Medication Allergies Social History Electronic Cigarette/Vaping Electronic Cigarette Use: Unknown/not obtained. Tobacco Never tobacco user, Not obtained due to cognitive impairment Tobacco Use:. Electronically Signed on 06/27/2024 11:48 EDT Massiel Miller PROFESSOR OF HISTORY supervisor fur floor worker Progress note * Rukhsana Bellamy: PERFORM Event Display: [employer] Consultant Progress Note Authored Date: [id number] MARIA E spoke with Favio about discharge, he reports feeling fine about going home, appears sleepy at time of visit but is oriented. MARIA E called also his dpoahc, Aston, and updated her on discharge plan and his home provider, Annamarie. All questions about the discharge were answered, ambulance ride was arranged for 3 to 330 p.m. with [facility] ambulance. Annamarie will garbage pick up man Favio's medications at the [facility]. Advised home providers that Favio will still need to rest and reviewed medication changes with Annamarie, advised her that it would all be in writing on the discharge summary sent home with Favio, she reports that she is unable to get him to agree to get out of bed most days a nd that he refuses offers of fans, refuses wedge for repositioning, she was in hopes that he may bemore cooperative with care following this stay. She also reports that at times the significant family dynamics are stressful for both the home providers and for Favio. distribution coordinator has scheduled follow up with PCP and that information is also on the discharge summary. Electronically Signed on 06/30/2024 12:23 EDT Rukhsana Bellamy * Rukhsana Bellamy: PERFORM Event Display: [employer] Consultant Progress Note Authored Date: [id number] MARIA E spoke with Jennfier, Favio's mom, in the room and with Aston, alternate dpoahc. Jennifer very upsetthat our facility has not called the home providers with updates and for medication lists, etc. MARIA E explained that we get med lists and most recent visit notes from the primary doctor. MARIA E has been speaking with Aston as she was primary contact at last admission, calls daily, is knowledgeable about Favio's needs and is responsive. Jennifer upset that nursing will not update all the people on the contact sheet, there are 6. MARIA E offered for any of the people listed to call MARIA E office and gave Jennifer direct line and then explained that nursing staff cannot update 6 people on every patient or they would not have time for nursing care. Per Aston, with Favio and Jennifer in the room, Gisselle who is listed as primary dpoahc is not knowledgeable about health care concerns, she assists with the financial part of things. MARIA E provided Katiana the names of the antibiotics Favio is on and passed onrequest that the provider go and discuss Favio's progress with them. Encouraged Jennifer to be patient and give the antibiotics time to work. MARIA E also called [facility] case management department and asked for their assistance in arranging an acute to acute transfer up to their hospital at Katiana's request. Messages left for Annette Russo and Prisca Lopez in the CM department at [facility]. Adding also home provider contact information: Annamarie Leroy: [phone] and Jovanny Russo: [phone] and home number for them both [phone]. Will put this on the physical chart as well. Electronically Signed on 06/24/2024 14:57 EDT Rukhsana Bellamy * Rukhsana Bellamy: PERFORM Event Display: [employer] Consultant Progress Note Authored Date: [id number] Per conversation with provider he is activating dpoahc due to patient confusion, dpoahc is Astonra Raos, she will be coming in and bringing us a copy of the document for our records. Electronically Signed on 06/24/2024 11:49 EDT Rukhsana Bellamy Physician Emergency department Note * Iain Reyes MD: PERFORM Event Display: ED Note Physician Authored Date: [id number] NEWTON BARRIOS JR :1965 Age:59 years Sex:Male Visit Date:06/20/2024 Primary Care Physician: Genevieve Baez Basic Information Time Seen: Iain Reyes MD / 06/20/2024 08:17 Chief Complaint Patient presents from a senior living with complaints of altered mental status and blood in urine, hasfrequent UTI's History Of Present Illness: 59-year-old male with a history of paraplegia??and chronic urinary tract infections??presents with altered mental status and fever. ??The patient was??transported by EMS from??the home in which he lives??with his caregivers this morning for??combativeness and??increasing confusion.?? He has a history of being hospitalized numerous times??for urinary tract infections causing similar??symptoms. ??He presents to the ED febrile to 103.5.?? His initial blood pressure was 102/60 but has since decreased to the 80s over 40s. ??His heart rates in the 90s. ??He knows his name??and is able to answer simple yes/no questions but cannot provide any detailed information and is intermittently confused and combative. Review of Systems: Review of systems is unobtainable due to the patient's altered mental status Physical Exam Vitals & Measurements T:??38.3?C ??(Oral)?? HR:??104??(Peripheral)?? RR:??13?? BP:??82/40?? SpO2:??98%?? HT:??177??cm?? WT:??100??kg??(Estimated)?? BMI:??31.92?? O2 Therapy:??Room air?? General: Awake and oriented to person H EENT: PERRL, EOMI, mucous membranes are dry Cardiovascular: Regular rate and rhythm Respiratory: Lungs are clear Abdomen: Soft nontender there is a suprapubic catheter in place Neurological: Normal range of motion of the upper extremities. ??The patient is paraplegic so??doesnot have use of his lower extremities Skin: Decubitus ulcers are present on the patient's??sacral and gluteal area. ??There is a large area of erythema extending from the mid back down to the upper posterior thighs. ??There is associatedsloughing skin and purulent type discharge. ??The area is warm and blanching to the touch??consistent with cellulitis Medical Decision Making: ?? Labs: Reviewed/see chart ?? Radiology: Reviewed/see chart ?? Old medical records: ??old medical records pertinent to the current visit have been reviewed ?? ED course: ?? Medical decision making:??59-year-old male presenting with sepsis. ??Sources would??be??his urinarytract as well as the cellulitis present??on his??back and gluteal region. ??Blood cultures have been obtained. ??Urine culture??is pending. ??The patient has been hydrated with 2 L of normal saline cu rrently??and will receive an additional liter.?? He has been given vancomycin and ceftriaxone??and imipenem has been??ordered to cover??Klebsiella and Pseudomonas that has been present in the patient's urine previously.?? I have spoken with the patient's daughter??and she confirms that he is a DNR/D NI??and??only wants limited interventions??to include IV fluids and antibiotics. ??He does not wantany heroic measures??or transfer to an outside facility for any additional??treatment. ??He does not want to be placed in the ICU.?? The patient's daughter??is??he is??DPOA and is comfortable with??this management. ??He will be admitted here to [facility] for continued care of spoken with who has accepted??the patient??to the inpatient service ?? Diagnosis:??1. ??Sepsis Procedure No Qualifying Data Assessment/Plan Ordered: .Troponin T Gen 5 Reflex 1 Hour, Blood, TS, Once, Lab Collect .Troponin T Gen 5 Reflex 3 Hour, Blood, TS, Once, Lab Collect Blood Culture [facility], Blood, Routine Collect, 06/20/24 7:49:00 EDT, Once, Nurse collect, Print Label,Arm, Right CT Abdomen and Pelvis w/o Contrast, 06/20/24 9:01:00 EDT, Stat, Reason: sepsis, kidney stones w/recent stent placement; uncertain if stent has been removed, Transport Mode: Stretcher Request for Admit, Inpatient With Telemetry, Med/Surg, Cl, Thom Stewart MD, 06/20/24 10:02:00 EDT, 06/20/24 10:02:00 EDT, 06/20/24 10:02:00 EDT Medication Reconciliation Unchanged acetaminophen (acetaminophen 325 mg oral capsule)2 Capsules Oral (given by mouth) every 6 hours as needed as needed for fever. ?? albuterol (albuterol 0.63 mg/3 mL (0.021%) inhalation solution)3 Milliliters Nebulized inhalation (inhale using nebulizer) every 4 hours as needed shortness of breath. ?? ascorbic acid (Vitamin C)250 Milligrams Oral (given by mouth) 2 times a day. ?? baclofen (baclofen 20 mg oral tablet)1 tab Oral (given by mouth) 3 times a day. ?? cholecalciferol (Vitamin D3 1000 intl units oral tablet)1 tab Oral (given by mouth) every day. ?? ciprofloxacin (ciprofloxacin 500 mg oral tablet) ?? diclofenac topical (Voltaren 1% topical gel)1 Application Topical (on the skin) 4 times a day as needed pain. ?? divalproex sodium (divalproex sodium 500 mg oral tablet, extended release)1 tab Oral (given by mouth) 2 times a day. ?? docusate (Doculase 100 mg oral capsule)1 Capsules Oral (given by mouth) 3 times a day as needed as needed for constipation. ?? fosfomycin (fosfomycin 3 g oral granule for reconstitution)1 Each Oral (given by mouth) every otherday for 6 Days. Refills: 0. ?? lactobacillus acidophilus and bulgaricus (Floranex oral tablet)1 tab Oral (given by mouth) 3 times a day. ?? lactobacillus acidophilus-lact rhamnosus (lactobacillus acidophilus- lactobacillus rhamnosus oral capsule)1 Capsules Oral (given by mouth) every day for 7 Days. contents of capsule can be sprinkled into cold food or beverages. Refills: 0. ?? LORazepam (LORazepam 1 mg oral tablet)1 tab Oral (given by mouth) 2 times a day as needed as neededfor anxiety. ?? LORazepam (LORazepam 1 mg oral tablet)1 tab Oral (given by mouth) 3 times a day. ?? magnesium chloride-calcium (as carbonate) (MagDelay)2 tab Oral (given by mouth) 2 times a day. ?? methenamine (Hiprex 1 g oral tablet)1 tab Oral (given by mouth) 3 times a day. ?? mirabegron (mirabegron 25 mg oral tablet, extended release)1 tab Oral (given by mouth) every day. do not crush or chew. ?? mirabegron (Myrbetriq 25 mg oral tablet, extended release)1 tab Oral (given by mouth) every day. donot crush or chew. ?? multivitamin (Multi Vitamin+)1 tab Oral (given by mouth) every day. ?? multivitamin with fluoride (Vitamin D with Fluoride 0.25 mg/mL oral liquid) ?? pregabalin (pregabalin 25 mg oral capsule)1 Capsules Oral (given by mouth) 3 times a day. ?? [id number] Milligrams Oral (given by mouth) every night at bedtime. ?? senna1 tab Oral (given by mouth) every day. ?? sulfamethoxazole-trimethoprim (Bactrim 400 mg-80 mg oral tablet)2 tab Oral (given by mouth) every 12 hours for 5 Days. Refills: 0. ?? tamsulosin (tamsulosin 0.4 mg oral capsule)1 Capsules Oral (given by mouth) every night at bedtime. ?? traZODone (traZODone 50 mg oral tablet)1 tab Oral (given by mouth) every night at bedtime. ?? zolpidem (zolpidem 10 mg oral tablet) Problem List/Past Medical History Ongoing Acute UTI (urinary tract infection) Chronic incomplete paraplegia Chronic suprapubic catheter Decubitus ulcer of buttock Paraplegia Urinary tract infection Historical No qualifying data Medication Administration Given acetaminophen, 1000 mg, IV Piggyback cefTRIAXone, 2000 mg, IV Piggyback sodium chloride 0.9% bolus, 1000 mL, Hydration Bolus sodium chloride 0.9% bolus, 1000 mL, Hydration Bolus vancomycin, IV Piggyback Allergies No Known Medication Allergies Social History Electronic Cigarette/Vaping Electronic Cigarette Use: Unknown/not obtained. Tobacco Never tobacco user, Not obtained due to cognitive impairment Tobacco Use:. Diagnostic Results XR Chest 1 View 06/20/2024 08:48 EDT XR Chest 1 View ?? 06/20/24 08:24:27 IMPRESSION: No acute cardiopulmonary findings. ?? Thank you for letting us participate in the care of this patient. If you are a health care provider and have any questions regarding this report, please contact the number below. For patients who have questions please contact the health palliative care physician that requested your imaging first. ?? Electronically signed by: ?? Signed By: DomainUser, Generated Lab Results CBC and Differential?? LATEST RESULTS?? HISTORICAL RESULTS?? WBC?? 06/20/24 07:52?? 12.65 ??High?? 03/28/24?? 6.59?? RBC?? 06/20/24 07:52?? 4.45?? 03/28/24?? 3.96 ??Low?? Hgb?? 06/20/24 07:52?? 12.7 ??Low?? 03/28/24?? 11.3 ??Low?? Hct?? 06/20/24 07:52?? 38.2 ??Low?? 03/28/24?? 35.5 ??Low?? MCV?? 06/20/24 07:52?? 85.8?? 03/28/24?? 89.6?? MCH?? 06/20/24 07:52?? 28.5?? 03/28/24?? 28.5?? MCHC?? 06/20/24 07:52?? 33.2?? 03/28/24?? 31.8 ??Low?? RDW-CV?? 06/20/24 07:52?? 14.8?? 03/28/24?? 15.4 ??High?? Platelets?? 06/20/24 07:52?? 161?? 03/28/24?? 215?? MPV?? 06/20/24 07:52?? 10.8 ??High?? 03/28/24?? 10.1 ??High?? Segs Man?? 06/20/24 07:52?? 82 ??High? Lymph Man?? 06/20/24 07:52?? 5 ??Low? Monocyte Man?? 06/20/24 07:52?? 13 ??High? Eos Man?? 06/20/24 07:52?? 0 ??Low? Basophil Man?? 06/20/24 07:52?? 0? ANC?? 06/20/24 07:52?? 10.37 ??High? Plt Estimation?? 06/20/24 07:52?? Normal? Routine Chemistry?? LATEST RESULTS?? HISTORICAL RESULTS?? Glucose Level?? 06/20/24 07:52?? 153 ??High?? 03/28/24?? 168 ??High?? BUN?? 06/20/24 07:52?? 16.4?? 03/28/24?? 25 ??High?? Creatinine Level?? 06/20/24 07:52?? 0.89?? 03/28/24?? 0.70?? eGFR AA?? 06/20/24 07:52?? 106?? 03/28/24?? 141?? eGFR Non-AA?? 06/20/24 07:52?? 88?? 03/28/24?? 117?? BUN/Creat Ratio?? 06/20/24 07:52?? 18?? 03/28/24?? 36?? Calcium Level?? 06/20/24 07:52?? 9.3?? 03/28/24?? 9.3?? CO2?? 06/20/24 07:52?? 22?? 03/28/24?? 30?? Chloride Level?? 06/20/24 07:52?? 102?? 03/28/24?? 108 ??High?? Sodium Level?? 06/20/24 07:52?? 139?? 03/28/24?? 145?? Potassium Level?? 06/20/24 07:52?? 4.3?? 03/28/24?? 3.8?? Anion Gap?? 06/20/24 07:52?? 19 ??High?? 03/28/24?? 11?? Alk Phos?? 06/20/24 07:52?? 54?? 03/28/24?? 56?? AST?? 06/20/24 07:52?? 27?? 03/28/24?? 6 ??Low?? ALT?? 06/20/24 07:52?? 19?? 03/28/24?? 15 ??Low?? Protein Total?? 06/20/24 07:52?? 6.8?? 03/28/24?? 7.0?? Albumin Level?? 06/20/24 07:52?? 3.6?? 03/28/24?? 2.9 ??Low?? Bilirubin Total?? 06/20/24 07:52?? 0.29?? 03/28/24?? 0.2?? A/G Ratio?? 06/20/24 07:52?? 1.1?? 03/28/24?? 0.7?? Lactic Acid?? 06/20/24 07:52?? 2.6 ??High?? 12/22/23?? 1.43? Cardiac Isoenzymes?? LATEST RESULTS?? Trop T Gen 5?? 06/20/24 07:48?? 64 ??Critical? UA Macroscopic?? LATEST RESULTS?? HISTORICAL RESULTS?? UA Color?? 06/20/24 07:36?? Dark Yellow Abnormal?? 12/22/23?? Yellow?? UA Appear?? 06/20/24 07:36?? Cloudy Abnormal?? 12/22/23?? Slightly Cloudy Abnormal?? UA pH?? 06/20/24 07:36?? 6.5?? 12/22/23?? 6.0?? UA Spec Grav?? 06/20/24 07:36?? 1.015?? 12/22/23?? 1.025?? UA Glucose?? 06/20/24 07:36?? Negative?? 12/22/23?? Negative?? UA Bili?? 06/20/24 07:36?? Negative?? 12/22/23?? Negative?? UA Ketones?? 06/20/24 07:36?? Negative?? 12/22/23?? Negative?? UA Blood?? 06/20/24 07:36?? 3+ Abnormal?? 12/22/23?? Trace Abnormal?? UA Protein?? 06/20/24 07:36?? 2+ Abnormal?? 12/22/23?? 1+ Abnormal?? UA Urobilinogen?? 06/20/24 07:36?? 0.2?? 12/22/23?? 0.2?? UA Nitrite?? 06/20/24 07:36?? Negative?? 12/22/23?? Positive Abnormal?? UA Leuk Est?? 06/20/24 07:36?? 3+ Abnormal?? 12/22/23?? 2+ Abnormal? UA Microscopic?? LATEST RESULTS?? HISTORICAL RESULTS?? UA WBC?? 06/20/24 07:36?? >50 Abnormal?? 12/22/23?? 10-25 Abnormal?? UA RBC?? 06/20/24 07:36?? 25-50?? 12/22/23?? 0-2?? UA Bacteria?? 06/20/24 07:36?? Few?? 12/22/23?? Few?? UA Squam Epithelial?? 06/20/24 07:36?? 0-2?? 12/12/23?? 0-2?? UA Culture Ind??? 06/20/24 07:36?? Indicated?? 12/22/23?? Indicated? Infectious Disease?? LATEST RESULTS?? HISTORICAL RESULTS?? Flu A (Gxpert COVFLURSV)?? 06/20/24 08:22?? Negative?? 12/22/23?? Negative?? Flu B (Gxpert COVFLURSV)?? 06/20/24 08:22?? Negative?? 12/22/23?? Negative?? RSV (Gxpert COVFLURSV)?? 06/20/24 08:22?? Negative?? 12/22/23?? Negative?? SARS-CoV-2 (COVID-19) PCR (Gxpert COVFLU?? 06/20/24 08:22?? Negative?? 12/22/23?? Negative? Electronically Signed on 06/20/2024 10:09 EDT Iain Reyes MD Progress note * Wendy Skinner PROFESSOR OF HISTORY: PERFORM Event Display: Progress Note - Physician Authored Date: [id number] NEWTON BARRIOS JR :1965 Age:59 years Sex:Male Visit Date:06/20/2024 Primary Care Physician: Genevieve aBez Slept well last night.?? No further confusion or delirium noted today.?? Has been taking naps but is arousable and is awake and for meals.?? Hemodynamically stable. ??No new complaints Review of Systems Constitutional:?No??fevers,?No??chills,?No??sweats Eye:?No??recent visual problems ENT:?No??ear pain,?No??nasal congestion,?No??sore throat Respiratory:?No??shortness of breath,?No??cough Cardiovascular:?No??Chest pain,?No??palpitations,?No??syncope Gastrointestinal:?No??nausea,?No??vomiting,?No??abd pain Genitourinary:?No??hematuria Brian/Lymph:?No??bruising tendency,?No??swollen lymph glands Endocrine:?No??excessive thirst,??No??excessive hunger Musculoskeletal:??No??back pain,??No??neck pain,??No??joint pain,??No??muscle pain,??No??decreased range of motion Integumentary:?No??rash,?No??pruritus,?No??abrasions Neurologic: Alert & oriented, no confusion?? Psychiatric:?No??anxiety,?No??depression, no hallucinations ?? Objective Vitals & Measurements T:??37.0?C ??(Oral)?? TMIN:??36.8?C ??(Oral)?? TMAX:??37.4?C ??(Oral)?? HR:??73??(Monitored)?? RR:??18?? BP:??137/69?? SpO2:??96%?? WT:??85.8??kg?? Pain Score:??0?? O2 Therapy:??Room air?? Physical Exam Elderly male chronically ill-appearing??in no acute distress head is atraumatic??eyes nonicteric noninjected oral mucosa??slightly dry, no exudate, neck is supple full range of motion?? abdomen soft??ostomy in place??draining.?? suprapubic catheter draining clear yellow urine,?? Bilateral lower extremity flaccid,bilateral upper extremities??full range of motion hands are contracted he is wearing??soft??mitts??to protect medical lines, Neurologic he is awaken to verbal stimuli, no??further confusion noted, oriented to person and situation.?? Psychiatric no behavioral disturbance?? Assessment/Plan 1.??Acute delirium??R41.0 ??resolved and slept well overnight continue current medication recommended by psychiatry consider reducing dose of night zyprexa to 2.5 if continues with daytime sleep 2.??Acute urinary tract infection??N39.0 ??resolved, urine on 06/25 with no growth or evidence of untreated infection 3.??Left lower lobe pneumonia??J18.9 ??resolved, no respiratory distress or oxygen needs, completed 9 day course of broad spectrum??antibiotics.?? 4.??Pressure ulcers of skin of multiple topographic sites??L89.90 ??continue skin care and reposition 5.??Bacteremia of undetermined etiology??R78.81 ??ruled out, blood cultures negative 6.??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 ??requires total care will discharge back to senior living in 1-2 days if remains medically stable.?? Electronically Signed on 06/29/2024 12:18 EDT Wendy Skinner PROFESSOR OF HISTORY * Wendy Skinner PROFESSOR OF HISTORY: PERFORM Event Display: Progress Note - Physician Authored Date: [id number] NEWTON BARRIOS JR :1965 Age:59 years Sex:Male Visit Date:06/20/2024 Primary Care Physician: Genevieve Baez Subjective still remains confused but with no behavioral issues.?? hemodynamically stable, no fever, no cough or sob, no chest pain. bowels and bladder functioning, incontinent large amounts of urine Review of Systems unable to obtained d/t ams, but no c/o Objective Vitals & Measurements T:??36.8?C ??(Oral)?? TMIN:??36.7?C ??(Oral)?? TMAX:??36.9?C ??(Oral)?? HR:??94??(Peripheral)?? RR:??20?? BP:??155/99?? SpO2:??98%?? Pain Score:??0?? O2 Therapy:??Room air?? Physical Exam Elderly male chronically ill-appearing??in no acute distress head is atraumatic??eyes nonicteric noninjected oral mucosa??slightly dry, no exudate, neck is supple full range of motion?? abdomen soft??ostomy in place??draining.? Bilateral lower extremity flaccid,bilateral upper extremities??full range of motion hands are contracted he is wearing??soft??mitts??to protect medical lines, Neurologic he is awake alert confused.?? Psychiatric no behavioral disturbance?? Assessment/Plan 1.??Acute delirium??R41.0 ??continue medication adjustments per psychiatric consultation no evidence of infectious component.?? head CT negative.?? taper lorazepam 2.??Acute urinary tract infection??N39.0 ??completed 9 days of antibiotics no evidence of untreated infection ?? 3.??Left lower lobe pneumonia??J18.9 ??respiratory status stable, treated with 9 days of antibiotics,?? continue to monitor 4.??Pressure ulcers of skin of multiple topographic sites??L89.90 ??wound care, respositioning 5.??Bacteremia of undetermined etiology??R78.81 6.??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 ??required total care Orders: LORazepam, 0.5 mg = 1 tab, Oral, Tab, BID, First Dose: 06/28/24 21:00:00 EDT, Routine, 06/28/24 11:31:00 EDT Dietary Supplements, 06/27/24 13:18:00 EDT, Ensure, ALL, Breakfast, vanilla Electronically Signed on 06/28/2024 11:34 EDT Wendy Skinner PROFESSOR OF HISTORY * Wendy Skinner PROFESSOR OF HISTORY: PERFORM Event Display: Progress Note - Physician Authored Date: [id number] NEWTON BARRIOS JR :1965 Age:59 years Sex:Male Visit Date:06/20/2024 Primary Care Physician: Sasha, Genevieve Subjective Patient continues to remain hemodynamically stable??and taking oral intake no behavioral disturbances but is not at baseline with acute confusion and delirium. Review of Systems 10 point review of systems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
--- OUTSIDE RECORDS SUMMARY | 2024-07-22 14:59 | XMS_ITS | Encounter Summary ---
Author Organization [facility] Address [address] [place] [address] Care Team Providers Care Public Health Epidemiologist Name Role Phone None, Provider Primary Care Provider Unavailabl e Reason for Visit * (Routine) - Receiving Office to Obtain Authorization Specialty Diagnoses / Procedures Referred By Ness palacio Referred To Contact Procedures XR OUTSIDE IMAGES CHEST Unknown, Provider, Referral ID Status Reason Start Date Expiration Date Visits Requested Visits Authorized [id number] Receiving Office to Obtain Authorization 04/04/2021 1 1 Encounter Details Date Type Department Care Team (Latest Contact Info) Description 03/23/2021 0:10 EDT - 03/23/2021 23:59 EDT Hospital Encounter [facility] Secondary Reads [place] Discharge Disposition: Home [...] Comments XR OUTSIDE IMAGES CHEST Routine 04/04/2021 18:44 EDT documented in this encounter Results * XR OUTSIDE IMAGES CHEST (04/04/2021 18:44 EDT) Narrative 04/04/2021 18:44 EDT This is a non-reportable exam. Provider Unknown MD WILLS OTHER IMAGING OR DERABLES documented in this encounter Visit Diagnoses Not on filedocumented in this encounter Care Teams Public Health Epidemiologist Relationship Specialty Start Date End Date None, Provider PCP - General 07/15/16 documented as of this encounter
--- OUTSIDE RECORDS SUMMARY | 2024-07-22 14:59 | XMS_ITS | Encounter Summary ---
Author Organization [facility] Address [address] [place] [address] Care Team Providers Care Tests Superintendent Name Role Phone None, Provider Primary Care Provider Unavailabl e Encounter Details Date Type Department Care Team (Late st Contact Info) Description 09/05/2021 Lab Requisition [facility] Pathology & Laboratory Medicine - Main [place] [address] [place] [address] Wendy Skinner, [place] [address] [place] [phone] Encounter for other general examination Social History [...] Date/Time Associated Diagnosis Comments YEAST IDENTIFICATION Today 09/01/2021 12:55 EDT Encounter for other general examination documented in this encounter Results * (ABNORMAL) YEAST IDENTIFICATION (09/01/2021 12:55 EDT) Organism ID Lisa parapsilosis (A) 09/09/2021 12:02 EST [facility] Organism (organism) VENOUS BLOOD / Unknown 09/01/2021 12:55 EDT 09/05/2021 21:21 EDT Narrative [facility] - 09/09/2021 12:02 EST 09/07/21 - susc for Fluconazole requested by Anita Bonilla from [facility] Organism Antibiotic Method Susceptibility Lisa parapsilosis Fluconazole MICRO SUSCEPTIBILITY 0.5 ug/mL: Susceptible Lisa parapsilosis Micafungin MICRO SUSCEPTIBILITY 4 ug/mL: Intermediate Wendy Skinner ROTARY MACHINE OPERATOR MICROBIOLOGY - GEN ERAL ORDERABLES [facility] [address] [place] [address] documented in this encounter Visit Diagnoses Diagnosis Encounter for other general examination documented in this encounter Additional Health Concerns Infection Onset Date Last Indicated Resolved Time MDR-GNR Comment:IP Note: MDR-GNR positive Proteus in urine 02/26/23 A Ross 03/05/23 03/05/2023 03/05/2023 documented as of this encounter Care Teams Tests Superintendent Relationship Specialty Start Date End Date None, Provider PCP - General 07/15/16 documented as of this encounter
--- OUTSIDE RECORDS SUMMARY | 2024-07-22 14:59 | XMS_ITS | Encounter Summary ---
Author Organization [facility] Address [address] [place] [address] Care Team Providers Care Hris Coordinator Name Role Phone None, Provider Primary Care Provider Unavailabl e Encounter Details Date Type Department Care Team (Late st Contact Info) Description 02/21/2021 Lab Requisition [facility] Pathology & Laboratory Medicine - [address] [address] Outr Resulting Lab, Provider Social History Tobacco [...] Procedure Name Priority Date/Time Associated Diagnosis Comments FECAL BACTERIAL PATHOGENS BY PCR Routine 02/20/2021 17:00 EDT documented in this encounter Results * FECAL BACTERIAL PATHOGENS BY PCR (02/20/2021 17:00 EDT) Salmonella PCR Negative Negative 02/21/2021 22:46 EDT [facility] Shigella/Enteroin vasive E. coli Negative Negative 02/21/2021 22:46 EDT [facility] HN LAB CAMPYLOBACTER PCR Negative Negative 02/21/2021 22:46 EDT [facility] Shiga Toxin PCR Negative Negative 22:46 EDT [facility] Feces SPECIMEN FROM RECTUM / Unknown 02/20/2021 17:00 EDT 02/21/2021 16:43 EDT Provider Outr Resulting Lab MICROBIOLOGY - GENERAL ORDERABLES [facility] [address] [place] [address] documented in this encounter Visit Diagnoses Not on filedocumented in this encounter Additional Health Concerns Infection Onset Date Last Indicated Resolved Time MDR-GNR Comment:IP Note: MDR-GNR positive Proteus in urine 02/26/23 A Ross 03/05/23 03/05/2023 03/05/2023 documented as of this encounter Care Teams Hris Coordinator Relationship Specialty Start Date End Date None, Provider PCP - General 07/15/16 documented as of this encounter
--- OUTSIDE RECORDS SUMMARY | 2024-07-22 14:59 | XMS_ITS | Encounter Summary ---
Author Organization [facility] Address [address] [place] [address] Care Team Providers Care Slate Trimmer Name Role Phone None, Provider Primary Care Provider Unavailabl e Reason for Visit * (Routine) - Receiving Office to Obtain Authorization Specialty Diagnoses / Procedures Referred By Ness palacio Referred To Contact Procedures XR OUTSIDE IMAGES CHEST Unknown, Provider, Referral ID Status Reason Start Date Expiration Date Visits Requested Visits Authorized [id number] Receiving Office to Obtain Authorization 04/04/2021 1 1 Encounter Details Date Type Department Care Team (Latest Contact Info) Description 03/22/2021 0:05 EDT - 03/22/2021 23:59 EDT Hospital Encounter [facility] Secondary Reads [place] Discharge Disposition: Home [...] Comments XR OUTSIDE IMAGES CHEST Routine 04/04/2021 18:16 EDT documented in this encounter Results * XR OUTSIDE IMAGES CHEST (04/04/2021 18:16 EDT) Narrative 04/04/2021 18:16 EDT This is a non-reportable exam. Provider Unknown MD WILLS OTHER IMAGING OR DERABLES documented in this encounter Visit Diagnoses Not on filedocumented in this encounter Care Teams Slate Trimmer Relationship Specialty Start Date End Date None, Provider PCP - General 07/15/16 documented as of this encounter
--- OUTSIDE RECORDS SUMMARY | 2024-07-22 14:59 | XMS_ITS | Encounter Summary ---
Author Organization [facility] Address [address] [place] [address] Care Team Providers Care Bus Washer Name Role Phone None, Provider Primary Care Provider Unavailabl e Encounter Details Date Type Department Care Team (Late st Contact Info) Description 04/07/2023 Lab Requisition [facility] Pathology & Laboratory Medicine - [facility] [address] [place] [address] Scarlett Zhu MD [address] [place] [phone] Urinary tract infection, site not specified Social [...] Priority Date/Time Associated Diagnosis Comments SUSCEPTIBILITY Today 04/05/2023 9:00 EDT Urinary tract infection, site not specified documented in this encounter Results * (ABNORMAL) SUSCEPTIBILITY (04/05/2023 9:00 EDT) Organism ID Proteus mirabilis( A) VITEK SUSCEPTIBILITY 04/10/2023 14:36 EDT [facility] Comment: Use of cefazolin is [...] only cefpodoxime and cephalexin are on the [facility] inpatient formulary. ? Organism (organism) URINE / Unknown 04/05/2023 9:00 EDT 04/07/2023 16:53 EDT Narrative Organism Antibiotic Method Susceptibility Proteus mirabilis Ampicillin VITEK SUSCEPTIBILITY >=32 ug/mL: Resistant Proteus mirabilis Cefazolin VITEK SUSCEPTIBILITY >=64 ug/mL: Resistant Proteus mirabilis Cefepime VITEK SUSCEPTIBILITY 4 ug/mL: Susceptible Dose Dependent Proteus mirabilis Ceftriaxone VITEK SUSCEPTIBILITY <=1 ug/mL: Susceptible Proteus mirabilis Ciprofloxacin VITEK SUSCEPTIBILITY >=4 ug/mL: Resistant Proteus mirabilis Ertapenem VITEK SUSCEPTIBILITY Susceptible Proteus mirabilis Meropenem VITEK SUSCEPTIBILITY 8 ug/mL: Resistant Proteus mirabilis Nitrofurantoin VITEK SUSCEPTIBILITY 256 ug/mL: Resistant Proteus mirabilis Piperacillin Tazobactam VITEK SUSCEP TIBILITY 8 ug/mL: Susceptible Proteus mirabilis Trimethoprim-Sulfame tho xazole VITEK SUSCEPTIBILITY >=320 ug/mL: Resistant Scarlett Zhu MD MICROBIOLOGY - [facility] ORDERABLES [facility] [address] [place] [address] documented in this encounter Visit Diagnoses Diagnosis Urinary tract infection, site not specified documented in this encounter Additional Health Concerns Infection Onset Date Last Indicated Resolved Time MDR-GNR Comment:IP Note: MDR-GNR positive Proteus in urine 02/26/23 A Ross 03/05/23 03/05/2023 03/05/2023 documented as of this encounter Care Teams Bus Washer Relationship Specialty Start Date End Date None, Provider PCP - General 07/15/16 documented as of this encounter
--- OUTSIDE RECORDS SUMMARY | 2024-07-22 14:59 | XMS_ITS | Encounter Summary ---
Author Organization [facility] Address [address] [place] [address] Care Team Providers Care Career Development Specialist Name Role Phone None, Provider Primary Care Provider Unavailabl e Encounter Details Date Type Department Care Team (Late st Contact Info) Description 05/12/2023 Lab Requisition [facility] Pathology & Laboratory Medicine - [facility] [address] [place] [address] Scarlett Zhu MD [address] [place] [phone] Social History Tobacco Use Types Packs/Day Years [...] Priority Date/Time Associated Diagnosis Comments SUSCEPTIBILITY Today 05/09/2023 18:34 EDT documented in this encounter Results * (ABNORMAL) SUSCEPTIBILITY (05/09/2023 18:34 EDT) Organism ID Proteus mirabilis( A) VITEK SUSCEPTIBILITY 05/15/2023 11:27 EDT [facility] Comment: Organism identification performed by [...] only cefpodoxime and cephalexin are on the [facility] inpatient formulary. ? Organism (organism) URINE / Unknown 05/09/2023 18:34 EDT 05/12/2023 22:29 EDT Narrative Organism Antibiotic Method Susceptibility Proteus mirabilis Ampicillin VITEK SUSCEPTIBILITY >=32 ug/mL: Resistant Proteus mirabilis Cefazolin VITEK SUSCEPTIBILITY >=64 ug/mL: Resistant Proteus mirabilis Cefepime VITEK SUSCEPTIBILITY 4 ug/mL: Susceptible Dose Dependent Proteus mirabilis Ceftriaxone VITEK SUSCEPTIBILITY <=1 ug/mL: Susceptible Proteus mirabilis Ciprofloxacin VITEK SUSCEPTIBILITY >=4 ug/mL: Resistant Proteus mirabilis Ertapenem VITEK SUSCEPTIBILITY 4 ug/mL: Resistant Proteus mirabilis Meropenem VITEK SUSCEPTIBILITY 8 ug/mL: Resistant Proteus mirabilis Nitrofurantoin VITEK SUSCEPTIBILITY 256 ug/mL: Resistant Proteus mirabilis Piperacillin Tazobactam VITEK SUSCEP TIBILITY 8 ug/mL: Susceptible Proteus mirabilis Trimethoprim-Sulfame tho xazole VITEK SUSCEPTIBILITY >=320 ug/mL: Resistant Scarlett Zhu MD MICROBIOLOGY - [facility] ORDERABLES [facility] [address] [place] [address] documented in this encounter Visit Diagnoses Not on filedocumented in this encounter Additional Health Concerns Infection Onset Date Last Indicated Resolved Time MDR-GNR Comment:IP Note: MDR-GNR positive Proteus in urine 02/26/23 A Ross 03/05/23 03/05/2023 03/05/2023 documented as of this encounter Care Teams Career Development Specialist Relationship Specialty Start Date End Date None, Provider PCP - General 07/15/16 documented as of this encounter
--- OUTSIDE RECORDS SUMMARY | 2024-07-22 14:59 | XMS_ITS | Encounter Summary ---
Author Organization [facility] Address [address] [place] [address] Care Team Providers Care Tie Inspector Name Role Phone None, Provider Primary Care Provider Unavailabl e Encounter Details Date Type Department Care Team (Late st Contact Info) Description 03/02/2023 Lab Requisition [facility] Pathology & Laboratory Medicine - [facility] [address] [place] [address] Scarlett Zhu MD [address] [place] [phone] Encounter for other general examination Social History [...] Diagnosis Comments ORGANISM IDENTIFICATION AND SUSCEPTIBILITY Today 02/26/2023 19:00 EDT Encounter for other general examination documented in this encounter Results * (ABNORMAL) ORGANISM IDENTIFICATION AND SUSCEPTIBILITY (02/26/2023 19:00 EDT) Organism ID Proteus mirabilis(A ) 03/05/2023 11:15 EDT [facility] Comment: Use of cefazolin [...] only cefpodoxime and cephalexin are on the [facility] inpatient formulary. ? Organism (organism) URINE SPECIMEN COLLECTION, CLEAN CATCH / Unknown 02/26/2023 19:00 EDT 03/02/2023 17:14 EDT Narrative Organism Antibiotic Method Susceptibility Proteus mirabilis Ampicillin VITEK SUSCEPTIBILITY >=32 ug/mL: Resistant Proteus mirabilis Cefazolin VITEK SUSCEPTIBILITY >=64 ug/mL: Resistant Proteus mirabilis Cefepime VITEK SUSCEPTIBILITY 4 ug/mL: Susceptible Dose Dependent Proteus mirabilis Ceftriaxone VITEK SUSCEPTIBILITY <=1 ug/mL: Susceptible Proteus mirabilis Ciprofloxacin VITEK SUSCEPTIBILITY >=4 ug/mL: Resistant Proteus mirabilis Ertapenem VITEK SUSCEPTIBILITY Intermediate Proteus mirabilis Meropenem VITEK SUSCEPTIBILITY >=8 ug/mL: Resistant Proteus mirabilis Nitrofurantoin VITEK SUSCEPTIBILITY 256 ug/mL: Resistant Proteus mirabilis Piperacillin Tazobactam VITEK SUSCEP TIBILITY 8 ug/mL: Susceptible Proteus mirabilis Trimethoprim-Sulfame tho xazole VITEK SUSCEPTIBILITY >=320 ug/mL: Resistant Scarlett Zhu MD MICROBIOLOGY - [facility] ORDERABLES [facility] [address] [place] [address] documented in this encounter Visit Diagnoses Diagnosis Encounter for other general examination documented in this encounter Additional Health Concerns Infection Onset Date Last Indicated Resolved Time MDR-GNR Comment:IP Note: MDR-GNR positive Proteus in urine 02/26/23 Femi Duncan 03/05/23 03/05/2023 03/05/2023 documented as of this encounter Care Teams Tie Inspector Relationship Specialty Start Date End Date None, Provider PCP - General 07/15/16 documented as of this encounter
--- OUTSIDE RECORDS SUMMARY | 2024-07-22 14:59 | XMS_ITS | Encounter Summary ---
Author Organization [facility] Address [address] [place] [address] Care Team Providers Care Machine Feed Operator Name Role Phone None, Provider Primary Care Provider Unavailabl e Encounter Details Date Type Department Care Team (Latest Contact Info) Description 04/02/2021 Lab Requisition [facility] Pathology & Laboratory Medicine - [address] [address] Wale Calderon MD Osteomyelitis of vertebra, sacral and sacrococcygeal region ([facility]) Social History Tobacco Use Types Packs/Day Years [...] Date/Time Associated Diagnosis Comments SURGICAL PATHOLOGY Today 03/31/2021 2: 44 EDT Osteomyelitis of vertebra, sacral and sacrococcygeal region ([facility]) documented in this encounter Results * SURGICAL PATHOLOGY (03/31/2021 2:44 EDT) Final Diagnosis A. DISTAL OSTOMY SITE, EXCISION: - Colon wall with regenerative and ulcerated mucosa and submucosal fibrosis. B. AFFERENT LOOP STAPLE LINE, EXCISION: - Invaginated colonic mucosa with reactive atypia, in a background of fibrosis, foreign body giant cell reaction, and chronic inflammation. See comment. 04/08/2021 18:18 EDT [facility] Diagnosis Comment The invaginated colonic mucosa with the associated morphologic findings is compatible with changes seen near staple line. 04/08/2021 18:18 [facility] Attestation By the signature below, the attending physician certifies that they have 1) personally conducted a gross and/or microscopic examination of the described specimen(s), and/or personally interpreted the results of laboratory testing of the described specimen(s), and 2) personally rendered or confirmed the above diagnosis. 04/08/2021 18:18 [facility] at 1818 Clinical History Large bowel obstruction 04/08/2021 18:18 [facility] Gross Description A. Received in formalin labelled with proper patient identification (initials R, L) and distal ostomy site is a segment of bowel ( 3.6 cm cm in length x 3.5 cm cm in diameter), received closed that has a staple line at one end and at the opposite end has a sutured lumen. serosa is wood to pale yellow in variegated. The mucosa adjacent to the skin is dark brown with various areas of ulceration. Opening the specimen reveals the remaining mucosa is pink-wood with the usual folds. Commercial Specialist sections are submitted in A1-A2. B. Received in formalin labelled with proper patient identification (initials R, L) and afferent loop staple line is a blunted portion of bowel (4.5 x 3.5 x 1.1 cm) with a minimal amount of attached adipose tissue. Within the central portion of the specimen is a staple line. No lesions or polyps are identified. Two branch sales and service representative sections are submitted in B1-B2. KAN GOODSON(ASCP) 04/03/2021 10:13 04/08/2021 18:18 [facility] Performing Lab [facility] 04/08/2021 18:18 [facility] Scanned Images 04/08/2021 18:18 [facility] Tissue OSTOMY IRRIGATION / Unknown 03/31/2021 2:44 EDT 04/02/2021 17:06 EDT Tissue specimen (specimen) OSTOMY IRRIGATION / Unknown 03/31/2021 4:02 EDT 04/02/2021 17:06 EDT Wale Calderon MD PATHOLOGY ORDERABLES [facility] [address] [place] [address] documented in this encounter Visit Diagnoses Diagnosis Osteomyelitis of vertebra, sacral and sacrococcygeal region ([facility]) documented in this encounter Additional Health Concerns Infection Onset Date Last Indicated Resolved Time MDR-GNR Comment:IP Note: MDR-GNR positive Proteus in urine 02/26/23 A Ross 03/05/23 03/05/2023 03/05/2023 documented as of this encounter Care Teams Machine Feed Operator Relationship Specialty Start Date End Date None, Provider PCP - General 07/15/16 documented as of this encounter
--- OUTSIDE RECORDS SUMMARY | 2024-07-22 14:59 | XMS_ITS | Encounter Summary ---
Author Organization [facility] Address [address] [place] [address] Care Team Providers Care Claim Service Representative Name Role Phone Unavailable Primary Care Provider Unavailabl e Encounter Details Date Type Department Care Team (Latest Contact Info) Description 07/10/2016 12:14 EDT - 07/10/2016 23:59 EDT Hospital Encounter [address] [address] Unknown, Provider, Discharge Disposition: Home or Self Care Social History Tobacco Use Types Packs/Day Years Used Date Smoking Tobacco: Never Assessed Sex and Gender Information Value Date Recorded Sex Assigned at Not on file Gender Identity Not on file Sexual Orientation Not on file documented as of this encounter Discharge Disposition Disposition Code Departure Means Destination Home or Self [facility] documented in this encounter Plan of Treatment Not on file documented as of this encounter Visit Diagnoses Not on filedocumented in this encounter
--- OUTSIDE RECORDS SUMMARY | 2024-07-22 14:59 | XMS_ITS | Encounter Summary ---
Author Organization [facility] Address [address] [place] [address] Care Team Providers Care Adolescent Coordinator Name Role Phone None, Provider Primary Care Provider Unavailabl e Encounter Details Date Type Department Care Team (Late st Contact Info) Description 02/27/2021 Lab Requisition [facility] Pathology & Laboratory Medicine - [facility] [address] [place], [place] [address] Outr Resulting Lab, Provider Social History Tobacco [...] Priority Date/Time Associated Diagnosis Comments PREALBUMIN Routine 02/27/2021 6:10 EDT documented in this encounter Results * (ABNORMAL) PREALBUMIN (02/27/2021 6:10 EDT) Prealbumin 18(L) 20 - 40 mg/dL 02/28/2021 8:45 EDT [facility] Blood VENOUS BLOOD / Unknown 02/27/2021 6:10 EDT 02/27/2021 15:47 EDT Provider Outr Resulting Lab CHEMISTRY & BLOOD GAS ORDERABLES [facility] [address] [place] [address] documented in this encounter Visit Diagnoses Not on filedocumented in this encounter Additional Health Concerns Infection Onset Date Last Indicated Resolved Time MDR-GNR Comment:IP Note: MDR-GNR positive Proteus in urine 02/26/23 A Ross 03/05/23 03/05/2023 03/05/2023 documented as of this encounter Care Teams Adolescent Coordinator Relationship Specialty Start Date End Date None, Provider PCP - General 07/15/16 documented as of this encounter
--- OUTSIDE RECORDS SUMMARY | 2024-07-22 14:59 | XMS_ITS | Encounter Summary ---
Author Organization [facility] Address [address] [place] [address] Care Team Providers Care Production Material Coordinator Name Role Phone None, Provider Primary Care Provider Unavailabl e Reason for Visit * (Routine) - Receiving Office to Obtain Authorization Specialty Diagnoses / Procedures Referred By Ness palacio Referred To Contact Procedures XR OUTSIDE IMAGES CHEST Unknown, Provider, Referral ID Status Reason Start Date Expiration Date Visits Requested Visits Authorized [id number] Receiving Office to Obtain Authorization 04/04/2021 1 1 Encounter Details Date Type Department Care Team (Latest Contact Info) Description 03/23/2021 - 03/23/2021 0:04 EDT Hospital Encounter [facility] Secondary Reads [place] Discharge Disposition: Home [...] Comments XR OUTSIDE IMAGES CHEST Routine 04/04/2021 18:23 EDT documented in this encounter Results * XR OUTSIDE IMAGES CHEST (04/04/2021 18:23 EDT) Narrative 04/04/2021 18:23 EDT This is a non-reportable exam. Provider Unknown MD WILLS OTHER IMAGING OR DERABLES documented in this encounter Visit Diagnoses Not on filedocumented in this encounter Care Teams Production Material Coordinator Relationship Specialty Start Date End Date None, Provider PCP - General 07/15/16 documented as of this encounter
--- OUTSIDE RECORDS SUMMARY | 2024-07-22 14:59 | XMS_ITS | Encounter Summary ---
Author Organization [facility] Address [address] [place] [address] Care Team Providers Care Or Assistant Name Role Phone None, Provider Primary Care Provider Unavailabl e Reason for Visit * (Routine) - Receiving Office to Obtain Authorization Specialty Diagnoses / Procedures Referred By Ness palacio Referred To Contact Procedures XR OUTSIDE IMAGES BODY Unknown, Provider, Referral ID Status Reason Start Date Expiration Date Visits Requested Visits Authorized [id number] Receiving Office to Obtain Authorization 04/04/2021 1 1 Encounter Details Date Type Department Care Team (Latest Contact Info) Description 12/31/2020 - 12/31/2020 23:59 EST Hospital Encounter [facility] Secondary Reads [place] Discharge Disposition: Home [...] Comments XR OUTSIDE IMAGES BODY Routine 04/04/2021 20:28 EDT documented in this encounter Results * XR OUTSIDE IMAGES BODY (04/04/2021 20:28 EDT) Narrative 04/04/2021 20:28 EDT This is a non-reportable exam. Provider Unknown MD WILLS OTHER IMAGING OR DERABLES documented in this encounter Visit Diagnoses Not on filedocumented in this encounter Care Teams Or Assistant Relationship Specialty Start Date End Date None, Provider PCP - General 07/15/16 documented as of this encounter
--- OUTSIDE RECORDS SUMMARY | 2024-07-22 15:00 | XMS_ITS | Encounter Summary ---
Author Organization [facility] [place] [address] Care Team Providers Care Broom Bundler Name Role Phone Genevieve Baez MD Primary Care Provider [phone] Encounter Details Date Type Department Care Team (Late st Contact Info) Description 07/05/2024 Interpretation Only [facility] [address] [place] [address] Twin Chaves MD [facility] [address] [place] [address] Social History Tobacco Use Types Packs/Day Years Used Date Smoking Tobacco: Never Smokeless Tobacco: Never Alcohol Use Standard Drinks/Week Comments Never 0 (1 standard drink = 0.6 oz pur e alcohol) [facility] Utilities Answer Date Recorded In the past 12 months has e electric, gas, oil, or water company threatened to shut off services in your home? No 03/18/2024 Hunger Vital Sign Answer Date Recorded Within the past 12 months, y ou worried that your food would run out before you got the money to buy more. Never true 03/18/20 24 Within the past 12 months, t he food you bought just didn't last and you didn't have money to get more. Never true 03/18/2024 PRAPARE - Transportation Answer Date Re corded In the past 12 months, has l ack of transportation kept you from medical appointments or from getting medications? No 03/02 In the past 12 months, has l ack of transportation kept you from meetings, work, or from getting things needed for daily living? No 03/18/2024 Housing Stability Vital Sign Answer Donell e Recorded In the last 12 months, was t here a time when you were not able to pay the mortgage or rent on time? No 03/18/2024 In the last 12 months, how many places have you lived? 1 03/18/2024 In the last 12 months, was t here a time when you did not have a steady place to sleep or slept in a [facility] (including now)? No 03/18/2024 IPV Inpatient Questions Answer Date Recorded Does Anyone Try to Keep You From Having Contact with Others or Doing Things Outside Your Home? no 03/16/2024 Feels Threatened by Someone no 03/02 Feels Unsafe at Home or Work/School no 03/16/2024 Physical Signs of Abuse Present no 03/16/2024 Sex and Gender Information Value Date Recorded Sex Assigned at Not on file Gender Identity Not on file Sexual Orientation Not on file documented as of this encounter Plan of Treatment Not on file documented as of this encounter Procedures Procedure Name Priority Date/Time Associated Diagnosis Comments XR FOOT MIN 3 VIEWS RIGHT STAT 07/05/2024 2:33 PM EDT documented in this encounter Results * XR Foot Min 3 views Right (Generic) (07/05/2024 2:33 PM EDT) PT CLASS E RAD ADMITDTTM [id number] RAD PT RAD INFO [id number]^Essie luciano^Twin RAD EXAM DESC [id number]^XR Foot Complete 3+ Views Right^[facility] WORKSTATION ID [id number] RAD Anatomical Region Laterality Modality Foot Right Radiographic Gricel ging 07/05/2024 2:33 PM EDT Impressions 07/05/2024 2:48 PM EDT 1. ??No acute osseous finding within limitation of advanced demineralization. 2. ??Truncated distal 5th metatarsal as well as the proximal portion of 5th proximal phalange of indeterminate chronicity however favored to be chronic. This could be sequela of prior infection, posttraumatic or postsurgical 3. ??Diffuse of tissue swelling. Thank you for letting us participate in the care of this patient. ??If you are a health care provider and have any questions regarding this report, please contact the number below. ??For patients who have questions please contact the health customer care specialist that requested your imaging first. ? Narrative 07/05/2024 2:48 PM EDT EXAMINATION: XR Foot Complete 3+ Views Right [...] deformities of toes, limits evaluation of phalanges. ??Diffuse soft tissue swelling of the foot. ??No soft tissue gas. 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 Flexion deformities of toes, limits evaluation of phalanges. Diffusesoft tissue swelling of the foot. No soft tissue gas. IMPRESSION 1. No acute osseous finding within limitation of advanceddemineralization. 2. Truncated distal 5th metatarsal as well as the proximal portion of5th proximal phalange of indeterminate chronicity however favored to bechronic. This could be sequela of prior infection, posttraumatic or postsurgical 3. Diffuse of tissue swelling. Thank you for letting us participate in the care of this patient. If youare a health care provider and have any questions regarding this report,please contact the number below. For patients who have questions please contactthe health customer care specialist that requested your imaging first. Twin Chaves MD IMG DX ORDERABLES documented in this encounter Visit Diagnoses Not on filedocumented in this encounter Care Teams Broom Bundler Relationship Specialty Start Date End Date Genevieve Baez MD [address] [place] [address] PCP - General Family Medicine 07/22/23 documented as of this encounter
--- OUTSIDE RECORDS SUMMARY | 2024-07-22 15:00 | XMS_ITS | Encounter Summary ---
Author Organization [facility] [place] [address] Care Team Providers Care Automation Technologist Name Role Phone Genevieve Baez MD Primary Care Provider [phone] Reason for Referral * Consultation (Urgent) - Closed Specialty Diagnoses / Procedures Referred By Contac t Referred To Contact Wound Care Diagnoses Unspecified open wound of abdominal wall, right upper quadrant without penetration into peritoneal cavity, subsequent encounter Genevieve Baez MD [address] [place] [address] [facility] [place] [address] Referral ID Status Reason Start Date Expiration Date V isits Requested Visits Authorized [id number] Closed Consult, Test & Treat PCP Updated and/or Approved 03/07/2024 03/07/2025 6 6 Encounter Details Date Type Department Care Team (Latest Contact Info) Description 03/07/2024 Transcribe Orders eDH Incoming Referrals [phone] Genevieve Baez MD [address] [place] [address] Unspecified open wound of abdominal wall, right upper quadrant without penetration into peritoneal cavity, subsequent encounter Social History Tobacco Use Types Packs/Day Years Used Date Smoking Tobacco: Never Smokeless Tobacco: Never Alcohol Use Standard Drinks/Week Comments Never 0 (1 standard drink = 0.6 oz pur e alcohol) [facility] Utilities Answer Date Recorded In the past 12 months has th e electric, gas, oil, or water company threatened to shut off services in your home? No 10/27/2023 Hunger Vital Sign Answer Date Recorded Within the past 12 months, y ou worried that your food would run out before you got the money to buy more. Never true 10/27/20 23 Within the past 12 months, t he food you bought just didn't last and you didn't have money to get more. Never true 10/27/2023 PRAPARE - Transportation Answer Date Re corded In the past 12 months, has l ack of transportation kept you from medical appointments or from getting medications? No 10/03 In the past 12 months, has l ack of transportation kept you from meetings, work, or from getting things needed for daily living? No 10/27/2023 Housing Stability Vital Sign Answer Donell e Recorded In the last 12 months, was t here a time when you were not able to pay the mortgage or rent on time? No 10/27/2023 In the last 12 months, how many places have you lived? 2 10/27/2023 In the last 12 months, was t here a time when you did not have a steady place to sleep or slept in a long-term (including now)? No 10/27/2023 DH IPV Inpatient Questions Answer Date Recorded Does Anyone Try to Keep You From Having Contact with Others or Doing Things Outside Your Home? no 10/28/2023 Feels Threatened by Someone no 10/03 Feels Unsafe at Home or Work/School no 10/28/2023 Physical Signs of Abuse Present no 10/28/2023 Sex and Gender Information Value Date Recorded Sex Assigned at Not on file Gender Identity Not on file Sexual Orientation Not on file documented as of this encounter Plan of Treatment Scheduled Referrals Name Type Priority Associated Diagnoses Orde r Schedule Referral to Wound Clinic Outpatient Referral Urgent Unspecified open wound of abdominal wall, right upper quadrant without penetration into peritoneal cavity, subsequent encounter Ordered: 03/07/2024 documented as of this encounter Visit Diagnoses Diagnosis Unspecified open wound of abdominal wall, right upper quadrant without penetration into peritoneal cavity, subsequent encounter documented in this encounter Care Teams Automation Technologist Relationship Specialty Start Date End Date Genevieve Baez MD [address] [place] [address] PCP - General Family Medicine 07/22/23 documented as of this encounter
--- OUTSIDE RECORDS SUMMARY | 2024-07-22 15:00 | XMS_ITS | Clinical Summary ---
Author Organization [facility] [place] [address] Care Team Providers Care Skate Maker Name Role Phone Genevieve Baez MD Primary Care Provider [phone] Allergies Active Allergy Reactions Criticality Noted Date Comments Hydromorphone Other (See Comments) 10/25/2023 Daughter states makes him irritable and has hallucinations Medications Medication Sig Dispensed Refills Start Date End Date Status docusate sodium (Colace) 100 mg Capsule Take 100 mg by mouth 3 times daily. 01/13/2021 Active acetaminophen (Tylenol) 500 mg Tablet Take 1,000 mg by mouth Every 8 hours as needed. 01/13/2021 Active L. acidophilus/L.bulga ricus (FLORANEX ORAL) Take 1 tablet by mouth 3 times daily. Active mirabegron ER (Myrbetriq) 25 mg ER 24 hr tablet Take 1 tablet by mouth daily. 11/09/2023 Active pregabalin (Lyrica) 25 mg capsule Take 1 capsule by mouth 3 times daily. 11/09/2023 Active tamsulosin (Flomax) 0.4 mg capsule Take 1 capsule by mouth daily. 90 tablet 3 11/09/2023 Active diclofenac (Voltaren) 1 % Gel Apply topically 4 times daily as needed. 100 g 3 11/09/2023 Active ketoconazole (Nizoral) 2 % Cream Apply topically daily. 30 g 11/09/2023 Active naloxone (Narcan) 1 mg/mL Syringe For opioid overdose,spray 1 mL in each nostril. Repeat after 3-5 minutes if no or minimal response. Call 911 before administration. 4 mL 11/09/2023 Active multivitamin (THERAGRAN) Tablet Take 1 tablet by mouth daily. Active traZODone (Desyrel) 100 mg tablet Take 100 mg by mouth nightly. Active ascorbic acid, Vitamin C, (Vitamin C) 250 mg tablet Take 250 mg by mouth 2 times daily. Active cholecalciferoL (Vitamin D3) 1,000 unit tablet Take 1 tablet by mouth daily. Active baclofen (Lioresal) 20 mg tablet Take 3 tablets by mouth 3 times daily. 03/21/2024 Active divalproex ER (Depakote ER) 500 mg ER 24 hr tablet Take 1 tablet by mouth 2 times daily. 03/21/2024 Active LORazepam (Ativan) 1 mg tablet Take 1 tablet by mouth 3 times daily. TID plus 2 additional tablets PRN MDD 5mg 03/21/2024 Active QUEtiapine (SEROquel) 25 mg tablet Take 12 tablets by mouth nightly. 03/21/2024 Active senna (Senokot) 8.6 mg tablet Take 2 tablets by mouth 2 times daily. 03/21/2024 Active cefaDROXiL (Duricef) 500 mg capsule Take TWO capsules by mouth twice daily for 14 days, THEN take ONE capsule twice daily until your urology procedure 84 capsule 03/21/2024 Active Active Problems Problem Noted Date Diagnosed Date Complicated UTI (urinary tract infection) 2023 Pressure injury of left ischium, stage 4 022 Impaired mobility 07/21/2022 Pressure injury of left buttock, stage 4 022 Chronic recurrent multifocal osteomyelitis 09/19 History of caloric malnutrition 09/19/2021 Neurogenic bladder 09/19/2021 Pressure injury of buttock, stage 4 09/19/2021 Quadriplegia 09/19/2021 S/P colostomy 09/19/2021 S/P C4-T2 PSIF for C6-7 bila teral facet dislocation 10/27/20 Dr. Tong 10/27/2020 Cervical spine fracture 10/26/2020 Superficial skin infection 01/16/2012 Resolved Problems Problem Noted Date Diagnosed Date Resolved Date Septic shock 10/25/2023 03/21/2024 Pressure ulcer of right foot, stage 3 09/19/2021 04/30/2022 Encounters Date Type Department Care Team Description 07/05/2024 Interpretation Only [address] [id number] Twin Chaves MD 06/25/2024 Interpretation Only [address] [id number] Thom Albrecht MD 06/23/2024 Interpretation Only [address] [phone] Thom Albrecht MD 06/22/2024 Interpretation Only [address] [phone] Thom Albrecht MD 06/20/2024 Interpretation Only [address] [phone] Iain Reyes MD 06/20/2024 Lab [place] [address] Iain Reyes MD 06/20/2024 Interpretation Only [address] [phone] Iain Reyes MD 06/01/2024 Transcribe Orders eD Incoming Referrals [phone] Genevieve Baez MD Osteomyelitis, unspecified site, unspecified type 04/26/2024 Transcribe Orders eD Incoming Referrals [phone] Scarlett Zhu MD Sleep apnea, unspecified type from Last 3 Months Social History Tobacco Use Types Packs/Day Years Used Date Smoking Tobacco: Never Smokeless Tobacco: Never Tobacco Cessation:Counseling Given: Not Answered Alcohol Use Standard Drinks/Week Comments Never 0 (1 standard drink = 0.6 oz pur e alcohol) [facility] Utilities Answer Date Recorded In the past [...] place to sleep or slept in a snf (including now)? No 03/18/2024 [facility] IPV Inpatient Questions Answer Date Recorded [...] on file Sexual Orientation Not on file Last Filed Vital Signs Vital Sign Reading Time Taken Comments Blood Pressure 107/66 03/21/2024 2:55 PM EDT Pulse 60 03/21/2024 7:48 AM EDT Temperature 36.2 ??C (97.2 ??F) 03/21/2024 2:55 PM ED T Respiratory Rate 16 03/21/2024 2:55 PM EDT Oxygen Saturation 94% 03/21/2024 2:55 PM EDT Inhaled Oxygen Concentration - - Weight 85.7 kg (189 lb) 03/16/2024 5:20 PM EDT Height 188 cm (6' 2) 03/16/2024 5:20 PM EDT Body Mass Index 24.27 03/16/2024 5:20 PM EDT Plan of Treatment Health Maintenance Due Date Last Done Comments CT Colonography 1967 Colonoscopy 1967 Colorectal Cancer Screening 1967 FIT DNA 1967 FIT 1967 Sigmoidoscopy (10 year) with FIT yearly 1967 Sigmoidoscopy 1967 HIV screen 1985 Hepatitis C Screening 1985 Lipid Screening 1985 Hepatitis B vaccine (0-59 yr s) (1) 1986 Tdap adult 1986 Tetanus vaccine 1986 Zoster vaccine (1 of 2) 2017 Covid-19 Vaccine ( - 2022-2 4 season) 2024 Influenza (Flu) vaccine (1 o f 1 - Influenza standard series) 07/03/2024 Diabetes Screening (HgbA1C o r Glucose) Discontinued 03/20/2024, 03/19/2024, 03/18/2024, Additional history exists Medical Devices Implanted Type Area Jewelsmith Device Identifier Shelf Expiration Date Model / Serial / Lot Kit Graft Bone Sponge 8cc Bmp Syringe Lrg Granules Infuse ([id number]) - [id number] Implanted:Qt y: 1 on 10/27/2020 by Robbin Tong MD at [facility] IMPLANTS Spine Cervical [employer] 07/03/2021 [id number] / / [id number] Screw Spinal 3.5x14mm Posterior Cervical Mltaxl Sld Ti ([id number]) (Autoreq) - [id number] Implanted:Qt y: 3 on 10/27/2020 by Robbin Tong MD at [facility] IMPLANTS Spine Cervical [employer] [id number] / / Graft Bone Filler 5ml Dbm Syringe Putty Progenix Plus ([id number]) (Autoreq) - [id number] Implanted:Qt y: 1 on 10/27/2020 by Robbin Tong MD at [facility] IMPLANTS Spine Cervical [employer] [id number] 09/28/2021 [id number] / [id number] / [id number] Graft Bone Filler [id number] Chips [facility] Preservon Readigraft ([id number]) (Autoreq) - [id number] Implanted:Qt y: 1 on 10/27/2020 by Robbin Tong MD at [facility] IMPLANTS Spine Cervical [facility] 07/05/2024 [id number] / / [id number] Screw Spinal 3.5x16mm Posterior Cervical Mltaxl Sld Ti ([id number]) (Autoreq) - [id number] Implanted:Qt y: 1 on 10/27/2020 by Robbin Tong MD at [facility] IMPLANTS Spine Cervical [employer] [id number] / / Jerrell Spinal 3.5-5.8j292l m [place] Cervical Tapered Ti ([id number]) (Autoreq) - [id number] Implanted:Qt y: 3 on 10/27/2020 by Robbin Tong MD at [facility] IMPLANTS Spine Cervical [employer] [id number] / / Screw Spinal 5.5x35mm Pedicle Mltaxl Alfred Cocr ([id number]) (Autoreq) - [id number] Implanted:Qt y: 1 on 10/27/2020 by Robbin Tong MD at [facility] IMPLANTS Spine Cervical [employer] [id number] / / Screw Spinal Set Pedicle 5.5/6.0mm Sld Ti ([id number]) (Autoreq) - [id number] Implanted:Qt y: 4 on 10/27/2020 by Robbin Tong MD at [facility] IMPLANTS Spine Cervical [employer] [id number] / / Screw Spinal Set Posterior Cervical Sld Standard Ti ([id number]) (Autoreq) - [id number] Implanted:Qt y: 4 on 10/27/2020 by Robbin Tong MD at [facility] IMPLANTS Spine Cervical [employer] [id number] / / Screw Spinal 5.5x25mm Pedicle Mltaxl Alfred Cocr ([id number]) (Autoreq) - [id number] Implanted:Qt y: 1 on 10/27/2020 by Robbin Tong MD at [facility] IMPLANTS Spine Cervical [employer] [id number] / / Screw Spinal 5.5x30mm Pedicle Mltaxl Alfred Cocr ([id number]) (Autoreq) - [id number] Implanted:Qt y: 2 on 10/27/2020 by Robbin Tong MD at [facility] IMPLANTS Spine Cervical [employer] [id number] / / Stent Ureteral [id number] Set Dbl Pgtl Tpr Tip Ptfe Hyconi ([id number]) - [id number] Implanted:Qt y: 1 on 10/25/2023 by Alfonso Brian MD at [facility] IMPLANTS Right: Ureter ZoomSafer [id number] 05/19/2026 [id number] / / [id number] Procedures Procedure Name Priority Date/Time Associated Diagnosis Comments XR FOOT MIN 3 VIEWS RIGHT STAT 07/05/2024 2:[address] HEAD W CONTRAST STAT 06/25/2024 4: 38 PM EDT BLOOD CULTURE Routine 06/23/2024 10:50 AM EDT URINE CULTURE Routine 06/23/2024 7:55 AM EDT XR CHEST ONE VIEW Routine 06/23/2024 7:4 4 AM EDT XR SHOULDER LEFT Routine 06/22/2024 8:19 PM EDT BLOOD CULTURE Routine 06/21/2024 2:[address] ABDOMEN AND PELVIS WO CONTRAST STAT 06/20/2024 9:24 AM EDT XR CHEST ONE VIEW STAT 06/20/2024 8:2 4 AM EDT BLOOD CULTURE Routine 06/20/2024 7:52 AM EDT URINE CULTURE Routine 06/20/2024 7:36 AM EDT BASIC METABOLIC PANEL Routine 03/20/2024 6:20 AM EDT from Last 3 Months or Most Recently Relevant to Health Maintenance Results * XR Foot Min 3 views Right (Generic) (07/05/2024 2:33 PM EDT) PT CLASS E RAD ADMITDTTM [id number] RAD PT RAD INFO [id number]^Haniss ankita^Twin RAD EXAM DESC XRFTMTVR^XR Foot Complete 3+ Views Right^RIS [facility] WORKSTATION ID [id number] [facility] Anatomical Region Laterality Modality Foot Right Radiographic [...] who have questions please contact the health home day care provider that requested your imaging first. ? Narrative [...] patients who have questions please contactthe health home day care provider that requested your imaging first. Twin Chaves MD IMG DX ORDERABLES * CT Head w Contrast (06/25/2024 4:38 PM EDT) PT CLASS I RAD ADMITDTTM [id number] [facility] PT [facility] INFO [id number]^Mcdoug all^Thom^Terry RAD EXAM DESC CTHDW^CT Head w/ Contrast^RIS [facility] WORKSTATION ID [id number] [facility] Anatomical Region Laterality Modality Head Computed Tomogra phy 06/25/2024 4:36 PM EDT Impressions 06/25/2024 4:50 PM EDT No intracranial mass or mass effect. Thank you for letting us participate in the care of this patient. ??If you are a health care provider and have any questions regarding this report, please contact the number below. ??For patients who have questions please contact the health home day care provider that requested your imaging first. ? Narrative 06/25/2024 4:50 PM EDT EXAMINATION: CT Head w/ Contrast CLINICAL HISTORY: [...] fluid and mild bilateral ethmoid mucosal thickening. Procedure Note Shilpa Cain MD - 06/25/2024 EXAMINATION: CT Head w/ Contrast CLINICAL HISTORY: Hallucinosis TECHNIQUE: CT head performed after the intravenous administration of 100cc ofOmnipaque 350. COMPARISON: CT head without contrast 10/24/2023 FINDINGS: No confluent parenchymal or extra-axial hemorrhage. Evaluation forsubarachnoid hemorrhage is limited due to contrast. There is no abnormal brain parenchymal enhancement. No midline shift,mass effect or hydrocephalus. Foramen magnum and basilar cisterns are patent. Pituitary gland is normal in size. Grossly normal intracranial vascular enhancement. There is mild parietal scalp soft tissue swelling eccentric to the left.There is a 1.7 x 0.7 cm left suboccipital lipoma without aggressive features. Orbits are normal. There is minimal right mastoid fluid and mild bilateral ethmoid mucosal thickening. IMPRESSION No intracranial mass or mass effect. Thank you for letting us participate in the care of this patient. If youare a health care provider and have any questions regarding this report,please contact the number below. For patients who have questions please contactthe health home day care provider that requested your imaging first. Thom Albrecht MD IMG CT ORDERABLES * Blood culture (06/23/2024 10:50 AM EDT) Only the most recent of3 resultswithin the time period is included. Blood Culture No growth at 120 hours 06/28/2024 7:01 PM EDT [facility] Blood VENOUS BLOOD SPECIMEN / Unknown 06/23/2024 10:50 AM EDT 06/23/2024 5:26 PM EDT Thom Albrecht MD MICROBIOLOGY - BLOOD ORDERABLES [facility] [place] [address] * Urine culture (06/23/2024 7:55 AM EDT) Only the most recent of2 resultswithin the time period is included. Urine Culture 10,000-49,0 00 cfu/ml mixed mucosal daphne 06/24/2024 1:07 PM EDT [facility] Urine URINE SPECIMEN OBTAINED BY CLEAN CATCH PROCEDURE / Unknown 06/23/2024 7:55 AM EDT 06/23/2024 5:26 PM EDT Thom Albrecht MD MICROBIOLOGY - GENER AL ORDERABLES [facility] [place] [place] [address] * XR Chest One View (06/23/2024 7:44 AM EDT) Only the most recent of2 resultswithin the time period is included. PT CLASS I RAD ADMITDTTM [id number] RAD PT RAD INFO [id number]^Mcdoug all^Thom^Terry RAD EXAM DESC XCXR1^XR Chest 1 View^RIS [facility] WORKSTATION ID [id number] [facility] Anatomical Region Laterality Modality Chest N/A Radiographic Gricel ging 06/23/2024 7:26 AM EDT Impressions 06/23/2024 9:18 AM EDT Left lower lobe pneumonia versus atelectasis. Thank you for letting us participate in the care of this patient. ??If you are a health care provider and have any questions regarding this report, please contact the number below. ??For patients who have questions please contact the health home day care provider that requested your imaging first. ? Narrative 06/23/2024 9:18 AM EDT EXAMINATION: XR Chest 1 View CLINICAL HISTORY: AMS TECHNIQUE: AP upright chest COMPARISON: June 20, 2024 FINDINGS: A left central venous access port remains in position with the tip at the cavoatrial junction. There is partial opacification of the left lower lobe. The visualized lungs are otherwise clear and well-expanded. Heart and pulmonary vasculature are normal. No acute osseous finding. Procedure Note Durga Parr MD - 06/23/2024 EXAMINATION: XR Chest 1 View CLINICAL HISTORY: AMS TECHNIQUE: AP upright chest COMPARISON: June 20, 2024 FINDINGS: A left central venous access port remains in position with the tip atthe cavoatrial junction. There is partial opacification of the left lower lobe. The visualizedlungs are otherwise clear and well-expanded. Heart and pulmonary vasculature arenormal. No acute osseous finding. IMPRESSION Left lower lobe pneumonia versus atelectasis. Thank you for letting us participate in the care of this patient. If youare a health care provider and have any questions regarding this report,please contact the number below. For patients who have questions please contactthe health home day care provider that requested your imaging first. Thom Albrecht MD IMG DX ORDERABLES * XR Shoulder Left (Generic) (06/22/2024 8:19 PM EDT) PT CLASS I RAD ADMITDTTM [id number] [facility] PT [facility] INFO [id number]^Mcdoug all^Thom^Terry RAD EXAM DESC XRSHDL^XR Shoulder Complete 2+ Views Left^RIS [facility] WORKSTATION ID [id number] [facility] Anatomical Region Laterality Modality Shoulder Left Radiographic Gricel ging 06/22/2024 8:19 PM EDT Impressions 06/22/2024 10:44 PM EDT 1. ??No acute osseous finding. 2. ??Osteoarthritis of glenohumeral and acromioclavicular joints. Thank you for letting us participate in the care of this patient. ??If you are a health care provider and have any questions regarding this report, please contact the number below. ??For patients who have questions please contact the health home day care provider that requested your imaging first. ? Narrative 06/22/2024 10:44 PM EDT EXAMINATION: XR Shoulder Complete 2+ Views Left CLINICAL HISTORY: shoulder pain TECHNIQUE: 3 views COMPARISON: Radiograph 11/15/2020. FINDINGS: No fracture or dislocation. ?? Suboptimal Grashey view limits evaluation of the glenohumeral joint space. There is marginal osteophytes in inferior humeral head. ??Joint space narrowing of acromioclavicular joint. Unremarkable soft tissues The partially included lungs are clear. ??Left chest Mediport with tip terminating in the superior cavoatrial junction. ??Cervical spinal fusion hardware noted. Procedure Note Dann Estes MD - 06/22/2024 EXAMINATION: XR Shoulder Complete 2+ Views Left CLINICAL HISTORY: shoulder pain TECHNIQUE: 3 views COMPARISON: Radiograph 11/15/2020. FINDINGS: No fracture or dislocation. Suboptimal Grashey view limits evaluation of the glenohumeral joint space. There is marginal osteophytes in inferior humeral head. Joint spacenarrowing of acromioclavicular joint. Unremarkable soft tissues The partially included lungs are clear. Left chest Mediport with tip terminating in the superior cavoatrial junction. Cervical spinal fusion hardware noted. IMPRESSION 1. No acute osseous finding. 2. Osteoarthritis of glenohumeral and acromioclavicular joints. Thank you for letting us participate in the care of this patient. If youare a health care provider and have any questions regarding this report,please contact the number below. For patients who have questions please contactthe health home day care provider that requested your imaging first. Thom Albrecht MD IMG DX ORDERABLES * CT Abdomen & Pelvis wo Contrast (06/20/2024 9:24 AM EDT) PT CLASS E RAD ADMITDTTM [id number] RAD PT RAD INFO [id number]^Findle y^Christopher^Carolyn d RAD EXAM DESC CTAPWO^CT Abdomen and Pelvis w/o Contrast^RIS [facility] WORKSTATION ID [id number] [facility] Anatomical Region Laterality Modality Abdomen, Pelvis Computed Tomogra phy 06/20/2024 9:24 AM EDT Impressions 06/20/2024 10:04 AM EDT 1. ??Suprapubic Beck catheter tip positioned in the right UVJ orifice with new moderate right hydronephrosis. 2. ??Right perinephric and periureteral edema. This can be related to obstruction versus urinary tract infection. Please correlate with urinalysis. 3. ??Nonobstructing right upper pole renal calculi measuring up to 9 mm. 4. ??Prior right upper pole linear foreign body is no longer present. 5. ??Posterior bilateral ischial decubitus ulcers. 6. ??Unchanged abnormal sclerosis within the posterior left ischial, concerning for either reactive osseous changes versus osteomyelitis. 7. ??Unchanged small lucent lesions within the iliac bones and diffuse osseous demineralization. Thank you for letting us participate in the care of this patient. ??If you are a health care provider and have any questions regarding this report, please contact the number below. ??For patients who have questions please contact the health home day care provider that requested your imaging first. ? Narrative 06/20/2024 10:04 AM EDT EXAMINATION: CT Abdomen and Pelvis w/o Contrast [...] the ulcer (axial series 3 image 154). Procedure Note Rajinder Lam MD - 06/20/2024 EXAMINATION: CT Abdomen and Pelvis w/o Contrast CLINICAL HISTORY: sepsis, kidney stones w/recent stent placement;uncertain if stent has been removed TECHNIQUE: Helical CT of the abdomen and pelvis without intravenouscontrast. Oral contrast was not administered. Multiplanar reformatted images were generated. COMPARISON: CT abdomen pelvis 03/18/2024 FINDINGS: The absence of intravenous contrast limits the evaluation of solid visceraand vasculature. Evaluation limited by motion artifact. Lower chest: Motion artifact and subsegmental atelectasis in the lungbases. No airspace opacity to suggest pneumonia. No pleural effusions. Liver: Normal size and attenuation. Bile ducts: Nondilated. Gallbladder: Decompressed. No calcified gallstones. There is some fatstranding along the inferior margin of the liver abutting the gallbladder fossalikely tracking from the pararenal fascia. Pancreas: Normal attenuation. Spleen: Normal size. Adrenals: Normal. Right kidney/ureter: The right kidney is edematous and there is newmoderate right hydronephrosis. There are multiple right-sided renal calculi,largest measuring 9 mm in the right upper pole. There is extensive perinephricand pararenal fascial edema. The right ureter is dilated along its entirecourse. No ureteral calculi. The tip of the suprapubic Beck catheter is positionedwithin the right UVJ orifice (axial series 3 image 141). Previously seen linearforeign body within the right renal collecting system is a longer present. Left kidney/ureter: Normal size. No hydronephrosis. There is mildperinephric fat stranding. No renal or ureteral calculi. Urinary Bladder: Suprapubic Beck catheter present within thedecompressed bladder. The tip of the Beck catheters positioned within the right UVJorifice. Small quantity of gas within the bladder lumen likely related to instrumentation. Vasculature: Atherosclerotic disease of the nonaneurysmal abdominalaorta. Lymph Nodes: No lymphadenopathy. Bowel: Normal lower esophagus, stomach and duodenum. No air or fluidfilled dilated loops of bowel to suggest obstruction. Moderate quantity ofhyperdense stool within the sigmoid colon and Lassiter pouch. Moderate quantity of stool within the descending colon. Left lowerquadrant colostomy. Normal terminal ileum. The appendix is partially visualized. There isfat stranding/edema tracking from the liver along the right pericolic gutterinto the right lower quadrant abutting the appendix, which limits evaluation ofthe appendix. No bowel wall thickening. Peritoneum and retroperitoneum: Aforementioned right perinephric andpararenal fascial edema. There is edema along the inferior margin of the livertracking inferiorly within the right paracolic gutter to the right lower quadrant.Small quantity of free fluid within the right paracolic gutter measuring simplefluid density (series 3 image 92). No loculated collection to suggest abscess.No free air. Abdominal wall: Left lower quadrant colostomy with no evidence ofcomplication. Diastases the ventral abdominal wall fascia. Suprapubic Beck catheterentry site with no subcutaneous collection. There are bilateral posteriorischial decubitus ulcers with ulceration on the left extending to near the bonesurface (series 3 image 154). Reproductive organs: Normal contours. Osseous structures: Multilevel disc and facet degenerative changes in thelumbar spine with straightening of lumbar lordosis. There is a background ofdiffuse osseous demineralization. Unchanged small lucent lesions within thebilateral iliac bones are unchanged compared to 03/18/2024. Unchanged patchysclerosis within the posterior left ischial adjacent to the ulcer (axial series 3image 154). IMPRESSION 1. Suprapubic Beck catheter tip positioned in the right UVJ orifice withnew moderate right hydronephrosis. 2. Right perinephric and periureteral edema. This can be related toobstruction versus urinary tract infection. Please correlate with urinalysis. 3. Nonobstructing right upper pole renal calculi measuring up to 9 mm. 4. Prior right upper pole linear foreign body is no longer present. 5. Posterior bilateral ischial decubitus ulcers. 6. Unchanged abnormal sclerosis within the posterior left ischial,concerning for either reactive osseous changes versus osteomyelitis. 7. Unchanged small lucent lesions within the iliac bones and diffuseosseous demineralization. Thank you for letting us participate in the care of this patient. If youare a health care provider and have any questions regarding this report,please contact the number below. For patients who have questions please contactthe health home day care provider that requested your imaging first. Iain Reyes MD IM CT ORDERABL ES * (ABNORMAL) Basic Metabolic Panel (non-fasting) (03/20/2024 6:20 AM EDT) Glucose 84 65 - 199 mg/dL [facility] Comment:Diabetes: >=200 mg/d L plus symptoms Blood Urea Nitrogen 14 10 - 20 mg/dL [facility] Creatinine 0.52(L) 0.80 - 1.50 mg/dL [facility] Sodium 143 135 - 145 mmol/L [facility] Potassium 3.6 3.5 - 5.0 mmol/L [facility] Comment: Please note: ??Patients with WBC >100,000 may have falsely elevated Potassium levels. ??For accurate Potassium quantification in these patients send serum separator tube (gold top) for subsequent determinations. ??Contact the Clinical Chemistry Laboratory if there are any questions. Chloride 107 98 - 107 mmol/L [facility] Carbon Dioxide 27 22 - 31 mmol/L [facility] Anion Gap 9 5 - 15 mmol/L [facility] Calcium 8.8 8.5 - 10.5 mg/dL [facility] Est Glomerular Filtration Rate 118 >=60 mL/min/1. 73 m?? [facility] Comment: This patient's estimated GFR was calculated using the 2020 CKD-EPI equation. The estimated GFR can vary from the measured GFR by up to 30% in the absence of rapidly changing kidney function. Assessment of the estimated GFR is not appropriate when creatinine concentrations are rapidly changing. For clinical situations in which a more precise estimate of GFR is necessary, consider alternative methods of GFR estimation such as a 24-hour urine creatinine clearance. Assignment of CKD stage 1-5 for patients with an eGFR near the transition point between stages may be based on clinical assessment of muscle mass and symptoms in addition to eGFR. 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 Ok for short term intubation. This is consistent with his prior admission here. Independent of Code Status d ecision, are there any PRE Arrest limitations (Intubation, Pressors, Cardioversion / Pacing, etc)? No Per policy, patient may rece hang all applicable life support PRE arrest: Acknowledged * Do NOT Attempt CPR - Inpatient Date Activated Date Inactivated Comments 10/29/2023 6:52 AM 11/09/2023 5:38 PM Question Answer Comments Code Status decision made by: Patient Content of discussion: when asked if francheska dyson wanted to have chest compressions he stated I am DNR, when intubation discussed, patient said if I need it - indicated he would be okay with short trial of intubation. Independent of Code Status d ecision, are there any PRE Arrest limitations (Intubation, Pressors, Cardioversion / Pacing, etc)? No Per policy, patient may rece hang all applicable life support PRE arrest: Acknowledged * Do NOT Attempt CPR - Inpatient Date Activated Date Inactivated Comments 10/28/2023 5:50 AM 10/29/2023 6:52 AM Question Answer Comments Code Status decision made by: Patient Content of discussion: when asked if francheska dyson wanted to have chest compressions, shocks, or intubation he responded hell no Independent of Code Status d ecision, are there any PRE Arrest limitations (Intubation, Pressors, Cardioversion / Pacing, etc)? Yes PRE Arrest Intubation Permitted? No * Do NOT Attempt CPR - Inpatient Date Activated Date Inactivated Comments 10/28/2023 5:44 AM 10/28/2023 5:50 AM Question Answer Comments Code Status decision made by: Patient Independent of Code Status d ecision, are there any PRE Arrest limitations (Intubation, Pressors, Cardioversion / Pacing, etc)? Yes PRE Arrest Intubation Permitted? No * Do NOT Attempt CPR - Inpatient Date Activated Date Inactivated Comments 10/28/2023 5:43 AM 10/28/2023 5:44 AM Question Answer Comments Code Status decision made by: Patient Content of discussion: Please see misaele ss note on 10/28 with content of discussion Independent of Code Status d ecision, are there any PRE Arrest limitations (Intubation, Pressors, Cardioversion / Pacing, etc)? Yes PRE Arrest Intubation Permitted? No Additional PRE Arrest treatm ents limitations: Do not intubate, even if for a short duration of time Healthcare Agents on File Name Relationship Healthcare Agent [facility] Communication Luz [facility] Care Agent Care Teams Skate Maker Relationship Specialty Start Date End Date Genevieve Baez MD [address] [place] [address] PCP - General Family Medicine 07/22/23
--- OUTSIDE RECORDS SUMMARY | 2024-07-22 15:00 | XMS_ITS | Encounter Summary ---
Author Organization [facility] [place] [address] Care Team Providers Care Tire Shop Manager Name Role Phone Genevieve Baez MD Primary Care Provider [phone] Encounter Details Date Type Department Care Team (Late st Contact Info) Description 06/25/2024 Interpretation Only [address] [phone] Thom Albrecht MD [address] [place] [id number] Social History Tobacco Use Types Packs/Day Years Used Date Smoking Tobacco: Never Smokeless Tobacco: Never Alcohol Use Standard Drinks/Week Comments Never 0 (1 standard drink = 0.6 oz pur e alcohol) [facility] Utilities Answer Date Recorded In the past 12 months has [employer] electric, gas, oil, or water company threatened [...] place to sleep or slept in a long term (including now)? No 03/18/2024 IPV Inpatient Questions [...] Name Priority Date/Time Associated Diagnosis Comments CT HEAD W CONTRAST STAT 06/25/2024 4: 38 PM EDT documented in this encounter Results * CT Head w Contrast (06/25/2024 4:38 PM EDT) PT CLASS I RAD ADMITDTTM [id number] RAD PT [facility] MD INFO [id number]^Mcdoug all^Thom^Terry RAD EXAM DESC CTHDW^CT Head w/ Contrast^RIS [facility] WORKSTATION ID [id number] [facility] Anatomical Region Laterality Modality Head Computed Tomogra phy 06/25/2024 4:36 PM EDT Impressions 06/25/2024 4:50 PM EDT No intracranial mass or mass effect. Thank you for letting us participate in the care of this patient. ??If you are a health care provider and have any questions regarding this report, please contact the number below. ??For patients who have questions please contact the health children's zoo caretaker that requested your imaging first. ? Electronically signed by: Shilpa Cain MD, [facility] ([phone]), at 06/25/2024 4:50 PM Narrative 06/25/2024 4:50 PM EDT EXAMINATION: CT [...] patients who have questions please contactthe health children's zoo caretaker that requested your imaging first. Electronically signed by: Shilpa Cain MD, [facility]([phone]), at 06/25/2024 4:50 PM Thom Albrecht MD IMG CT ORDERABLES documented in this encounter Visit Diagnoses Not on filedocumented in this encounter Care Teams Tire Shop Manager Relationship Specialty Start Date End Date Genevieve Baez MD [address] [place] [address] PCP - General Family Medicine 07/22/23 documented as of this encounter
--- OUTSIDE RECORDS SUMMARY | 2024-07-22 15:00 | XMS_ITS | Encounter Summary ---
Author Organization [facility] [place] [address] Care Team Providers Care Wood Filler Name Role Phone Genevieve Baez MD Primary Care Provider [phone] Encounter Details Date Type Department Care Team (Late st Contact Info) Description 12/31/2023 Interpretation Only [address] [id number] Genevieve Baez MD [address] [place] [address] Social History Tobacco Use Types Packs/Day Years Used Date Smoking Tobacco: Never Smokeless Tobacco: Never Alcohol Use Standard Drinks/Week Comments Never 0 (1 standard drink = 0.6 oz pur e alcohol) [facility] Utilities Answer Date Recorded In the past 12 months has [employer] electric, gas, oil, or water company threatened [...] place to sleep or slept in a senior care (including now)? No 10/27/2023 IPV Inpatient Questions Answer Date Recorded Does [...] Procedure Name Priority Date/Time Associated Diagnosis Comments MRI PELVIS SOFT TISSUE (GI FIELD CARE MANAGER) WWO CONTRAST Routine 12/31/2023 1:46 PM EST documented in this encounter Results * MRI Pelvis Soft Tissue (GI FIELD CARE MANAGER) wwo Contrast (12/31/2023 1:46 PM EST) PT CLASS O RAD ADMITDTTM [id number] RAD PT RAD INFO [id number]^Sasha^ Genevieve RAD EXAM DESC MRPELWW^MRI Pelvis w/ + w/o Contrast^RIS RAD Anatomical Region Laterality Modality Pelvis Magnetic Resonan ce 12/31/2023 11:5 5 AM EST Impressions 12/31/2023 4:58 PM EST 1. ??The MR correlate for the areas of focal lucency in the sacrum and pelvis on CT from 12/22/2023. Corresponding to islands of prominent fatty marrow. There are no bone marrow replacing lesions or abnormal enhancing bone marrow replacing lesions of the pelvis or sacrum. 2. ??Deep ulcer overlying the left ischium with a tiny subcentimeter focus of bone marrow signal alteration and mild enhancement suspicious for a tiny focus of osteomyelitis. 3. 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 Thank you for letting us participate in the care of this patient. ??If you are a health care provider and have any questions regarding this report, please contact the number below. ??For patients who have questions please contact the health rn homecare that requested your imaging first. ? Narrative 12/31/2023 4:58 PM EST EXAMINATION: MRI Pelvis w/ + w/o Contrast CLINICAL HISTORY: lytic lesions on ct scan of pelvis (as entered by ordering provider in the order requisition) TECHNIQUE: MR of the pelvis was performed with and without contrast. Postcontrast images were obtained after intravenous administration of 7.5 mL of Gadavist. Sequences include axial T1, axial T2 with fat saturation, axial vibe with fat saturation pre and postcontrast, coronal T2, coronal STIR, coronal vibe with fat saturation postcontrast, sagittal T1 and sagittal vibe with fat saturation postcontrast. COMPARISON: CT abdomen and pelvis 12/22/2023. FINDINGS: Problem specific findings: There are no bone marrow replacing lesions. At the site of previously seen lucency of the sacrum and pelvis, there are prominent islands of fatty marrow with signal that homogeneously suppresses on fat saturation and STIR sequences. There is no abnormal bone marrow enhancement. Other findings: There is a deep ulcer overlying the left ischium. No rim-enhancing fluid collection just abscess assess. There is a subcentimeter focus of T2 hyperintense mildly T1 hypointense signal alteration of the left ischium (series 601, image 37 and series 501, image 31), with mild associated bone marrow enhancement (series 1701, image 104), consistent with a tiny subcentimeter focus of osteomyelitis. No hip joint effusion bilaterally. No effusion of the bilateral sacroiliac joints. There is mild nonspecific presacral edema, without abnormal enhancement. There is edema of the iliacus muscles, gluteal muscles, and adductor muscles bilaterally. There is also intramuscular edema of the bilateral quadriceps muscles. There is associated mild fatty infiltration and atrophy of all of these muscles groups. There is no acute fracture. The origin of bilateral hamstrings tendons is intact. The bilateral insertional iliopsoas tendons are intact. The bilateral insertional gluteal tendons are intact. The origin of the rectus femoris and sartorius are intact. There is a suprapubic catheter in place with decompression of the urinary bladder. There is a left lower quadrant ostomy. There is a defect of the anterior abdominal wall with diastases of the rectus abdominis, similar when compared to CT from 12/22/2023. Procedure Note Eliane Stewart MD - 12/31/2023 EXAMINATION: MRI Pelvis w/ + w/o Contrast CLINICAL HISTORY: lytic lesions on ct scan of pelvis (as entered byordering provider in the order requisition) TECHNIQUE: MR of the pelvis was performed with and without contrast. Postcontrastimages were obtained after intravenous administration of 7.5 mL of Gadavist.Sequences include axial T1, axial T2 with fat saturation, axial vibe with fatsaturation pre and postcontrast, coronal T2, coronal STIR, coronal vibe with fatsaturation postcontrast, sagittal T1 and sagittal vibe with fat saturationpostcontrast. COMPARISON: CT abdomen and pelvis 12/22/2023. FINDINGS: Problem specific findings: There are no bone marrow replacing lesions. At the site of previouslyseen lucency of the sacrum and pelvis, there are prominent islands of fattymarrow with signal that homogeneously suppresses on fat saturation and STIRsequences. There is no abnormal bone marrow enhancement. Other findings: There is a deep ulcer overlying the left ischium. No rim-enhancing fluid collection just abscess assess. There is a subcentimeter focus of T2 hyperintense mildly T1 hypointense signal alteration of the left ischium(series 601, image 37 and series 501, image 31), with mild associated bonemarrow enhancement (series 1701, image 104), consistent with a tiny subcentimeterfocus of osteomyelitis. No hip joint effusion bilaterally. No effusion of the bilateralsacroiliac joints. There is mild nonspecific presacral edema, without abnormal enhancement. There is edema of the iliacus muscles, gluteal muscles, and adductormuscles bilaterally. There is also intramuscular edema of the bilateralquadriceps muscles. There is associated mild fatty infiltration and atrophy of all ofthese muscles groups. There is no acute fracture. The origin of bilateral hamstrings tendons is intact. The bilateralinsertional iliopsoas tendons are intact. The bilateral insertional gluteal tendonsare intact. The origin of the rectus femoris and sartorius are intact. There is a suprapubic catheter in place with decompression of theurinary bladder. There is a left lower quadrant ostomy. There is a defect of the anterior abdominal wall with diastases of therectus abdominis, similar when compared to CT from 12/22/2023. IMPRESSION 1. The MR correlate for the areas of focal lucency in the sacrum andpelvis on CT from 12/22/2023. Corresponding to islands of prominent fatty marrow.There are no bone marrow replacing lesions or abnormal enhancing bone marrowreplacing lesions of the pelvis or sacrum. 2. Deep ulcer overlying the left ischium with a tiny subcentimeter focusof bone marrow signal alteration and mild enhancement suspicious for a tinyfocus of osteomyelitis. 3. Diffuse intramuscular edema involving the bilateral gluteal muscles,iliacus muscles, adductor muscles, and quadriceps muscles with underlying muscleatrophy is consistent with subacute on chronic denervation injury versusmyositis. Thank you for letting us participate in the care of this patient. If youare a health care provider and have any questions regarding this report,please contact the number below. For patients who have questions please contactthe health rn homecare that requested your imaging first. Genevieve Baez MD IMG MRI ORDERABLES documented in this encounter Visit Diagnoses Not on filedocumented in this encounter Care Teams Wood Filler Relationship Specialty Start Date End Date Genevieve Baez MD [address] [place] [address] PCP - General Family Medicine 07/22/23 documented as of this encounter
--- OUTSIDE RECORDS SUMMARY | 2024-07-22 15:00 | XMS_ITS | Encounter Summary ---
Author Organization [facility] [place] [address] Care Team Providers Care Undercover Agent Name Role Phone Genevieve Baez MD Primary Care Provider [phone] Encounter Details Date Type Department Care Team (Latest Contact Info) Description 03/16/2024 Travel Social History Tobacco Use Types Packs/Day Years Used Date Smoking Tobacco: Never Smokeless Tobacco: Never Alcohol Use Standard Drinks/Week Comments Never 0 (1 standard drink = 0.6 oz pur e alcohol) [facility] Utilities Answer Date Recorded In the past 12 months has [employer], gas, oil, or water [employer] threatened to shut off services in your [...] place to sleep or slept in a halfway (including now)? No 10/27/2023 DH IPV Inpatient [...] Infection Onset Date Last Indicated Resolved Time Rule Out Respiratory 03/16/2024 03/16/2024 024 8:27 PM EDT Rule Out COVID-19 03/16/2024 03/16/2024 03/16/2024 8:27 PM EDT documented as of this encounter Care Teams Undercover Agent Relationship Specialty Start Date End Date Genevieve Baez MD [address] [place] [address] PCP - General Family Medicine 07/22/23 documented as of this encounter
--- OUTSIDE RECORDS SUMMARY | 2024-07-22 15:00 | XMS_ITS | Encounter Summary ---
Author Organization [facility] Address [facility] [place] [address] Care Team Providers Care Coffin Maker Name Role Phone Genevieve Baez MD Primary Care Provider [phone] Reason for Referral * Consultation (Routine) - Canceled Specialty Diagnoses / Procedures Referred By Ness t Referred To Contact Urology Diagnoses Quadriplegia, unspecified Erectile dysfunction, unspecified erectile dysfunction type INTERESTED IN SEEING DR GELLER FOR CONSIDERATION OF PENILE PROSTHESIS Scarlett Zhu MD [address] [place] [address] [address] [facility] [address] [place] [address] Ion Geller MD [facility] [place] [address] Referral ID Status Reason Start Date Expiration Date Visits Requested Visits Authorized [id number] Canceled Consult, Test & Treat PCP Updated and/or Approved 01/20/2024 01/19/2025 6 6 Encounter Details Date Type Department Care Team (Late st Contact Info) Description 01/20/2024 Transcribe Orders eDH Incoming Referrals [phone] Scarlett Zhu MD [address] [address] [place] [address] Quadriplegia, unspecified; Erectile dysfunction, unspecified erectile dysfunction type Social History Tobacco Use Types Packs/Day Years Used Date Smoking Tobacco: Never Smokeless Tobacco: Never Alcohol Use Standard Drinks/Week Comments Never 0 (1 standard drink = 0.6 oz pur e alcohol) [facility] Utilities Answer Date Recorded In [...] place to sleep or slept in a correction (including now)? No 10/27/2023 DH IPV Inpatient [...] Associated Diagnoses Orde r Schedule Referral to Urology Outpatient Referral Routine Quadriplegia, unspecified Erectile dysfunction, unspecified erectile dysfunction type Ordered: 01/20/2024 documented as of this encounter Visit Diagnoses Diagnosis Quadriplegia, unspecified Erectile dysfunction, unspecified erectile dysfunction type documented in this encounter Care Teams Coffin Maker Relationship Specialty Start Date End Date Genevieve Baez MD [address] [place] [address] PCP - General Family Medicine 07/22/23 documented as of this encounter
--- OUTSIDE RECORDS SUMMARY | 2024-07-22 15:00 | XMS_ITS | Encounter Summary ---
Author Organization [facility] [place] [address] Care Team Providers Care Senior Buyer Planner Name Role Phone Genevieve Baez MD Primary Care Provider [phone] Encounter Details Date Type Department Care Team (Late st Contact Info) Description 06/20/2024 Interpretation Only [address] [id number] Iain Reyes MD [address] [place], [place] [id number] Social History Tobacco Use Types Packs/Day Years Used Date Smoking Tobacco: Never Smokeless Tobacco: Never Alcohol Use Standard Drinks/Week Comments Never 0 (1 standard drink = 0.6 oz pur e alcohol) [facility] Utilities Answer Date Recorded In the past 12 months has [employer] electric, gas, oil, or water company threatened [...] place to sleep or slept in a detention (including now)? No 03/18/2024 IPV Inpatient Questions [...] Name Priority Date/Time Associated Diagnosis Comments CT ABDOMEN AND PELVIS WO CONTRAST STAT 06/20/2024 9:24 AM EDT documented in this encounter Results * CT Abdomen & Pelvis wo Contrast (06/20/2024 9:24 AM EDT) PT CLASS E RAD ADMITDTTM [id number] RAD PT [facility] MD INFO [id number]^Findle y^Christopher^Carolyn d RAD EXAM DESC CTAPWO^CT Abdomen and Pelvis w/o Contrast^RIS [facility] WORKSTATION ID [id number] [facility] Anatomical Region Laterality Modality Abdomen, Pelvis Computed [...] who have questions please contact the health day care teacher that requested your imaging first. ? Narrative [...] patients who have questions please contactthe health day care teacher that requested your imaging first. Iain Reyes MD IMG CT ORDERABL ES documented in this encounter Visit Diagnoses Not on filedocumented in this encounter Care Teams Senior Buyer Planner Relationship Specialty Start Date End Date Genevieve Baez MD [address] [place] [address] PCP - General Family Medicine 07/22/23 documented as of this encounter
--- OUTSIDE RECORDS SUMMARY | 2024-07-22 15:00 | XMS_ITS | Encounter Summary ---
[place] [address] Care Team Providers Care Mercury Recoverer Name Role Phone Genevieve Baez MD Primary Care Provider [phone] Reason for Referral * Consultation (Urgent) - Authorized Specialty Diagnoses / Procedures Referred By Contac t Referred To Contact Infectious Diseases Diagnoses Pressure injury of skin of buttock, unspecified injury stage, unspecified laterality Osteomyelitis, unspecified Genevieve Baez MD [address] [place] [address] [facility] Infectious Dis [address] [place] [phone] Referral ID Status Reason Start Date Expiration Date Visits Requested Visits Authorized [id number] Authorized Consult, Test & Treat PCP Updated and/or Approved 02/29/2024 02/28/2025 6 6 Encounter Details Date Type Department Care Team (Latest Contact Info) Description 02/29/2024 Transcribe Orders eDH Incoming Referrals [phone] Genevieve Baez MD [address] [place] [address] Pressure injury of skin of buttock, unspecified injury stage, unspecified laterality Social History Tobacco Use Types Packs/Day Years Used Date Smoking Tobacco: Never Smokeless Tobacco: Never Alcohol Use Standard Drinks/Week Comments Never 0 (1 standard drink = 0.6 oz pur e alcohol) [facility] Utilities Answer Date Recorded In the [...] place to sleep or slept in a mcc (including now)? No 10/27/2023 DH IPV Inpatient [...] Scheduled Referrals Name Type Priority Associated Diagnoses Order Schedule Referral to Infectious Disease and [facility] Outpatient Referral Urgent Pressure injury of skin of buttock, unspecified injury stage, unspecified laterality Ordered: 02/29/2024 documented as of this encounter Visit Diagnoses Diagnosis Pressure injury of skin of buttock, unspecified injury stage, unspecified laterality documented in this encounter Care Teams Mercury Recoverer Relationship Specialty Start Date End Date Genevieve Baez MD [address] [place] [address] PCP - General Family Medicine 07/22/23 documented as of this encounter
--- OUTSIDE RECORDS SUMMARY | 2024-07-22 15:00 | XMS_ITS | Encounter Summary ---
Author Organization [facility] [place] [address] Care Team Providers Care Rn Mental Health Name Role Phone Genevieve Baez MD Primary Care Provider [phone] Encounter Details Date Type Department Care Team (Late st Contact Info) Description 06/22/2024 Interpretation Only [address] [address] Thom Albrecht MD [address] [place] [id number] Social History Tobacco Use Types Packs/Day Years Used Date Smoking Tobacco: Never Smokeless Tobacco: Never Alcohol Use Standard Drinks/Week Comments Never 0 (1 standard drink = 0.6 oz pur e alcohol) [facility] Utilities Answer Date Recorded In the past 12 months has [employer] electric, gas, oil, or water company threatened [...] in a senior care (including now)? No 03/18/2024 IPV Inpatient Questions [...] Name Priority Date/Time Associated Diagnosis Comments XR SHOULDER LEFT Routine 06/22/2024 8:19 PM EDT documented in this encounter Results * XR Shoulder Left (Generic) (06/22/2024 8:19 PM EDT) PT CLASS I RAD ADMITDTTM [id number] RAD PT RAD MD INFO [id number]^Mcdoug all^Thom^Terry RAD EXAM DESC XRSHDL^XR Shoulder Complete 2+ Views Left^RIS [facility] WORKSTATION ID [id number] RAD Anatomical Region Laterality Modality Shoulder Left Radiographic [...] who have questions please contact the health care manager cna that requested your imaging first. ? Narrative [...] patients who have questions please contactthe health care manager cna that requested your imaging first. Thom Albrecht MD IMG DX ORDERABLES documented in this encounter Visit Diagnoses Not on filedocumented in this encounter Care Teams Rn Mental Health Relationship Specialty Start Date End Date Genevieve Baez MD [address] [place] [address] PCP - General Family Medicine 07/22/23 documented as of this encounter
--- OUTSIDE RECORDS SUMMARY | 2024-07-22 15:00 | XMS_ITS | Encounter Summary ---
Author Organization [facility] [place] [address] Care Team Providers Care Beverage Distiller Name Role Phone Genevieve Baez MD Primary Care Provider Reason for Referral * Consultation (Routine) - Authorized Specialty Diagnoses / Procedures Referred By Contac t Referred To Contact Sleep Center Diagnoses Sleep apnea, unspecified type Scarlett Zhu MD [address] [place] [address] [facility] [address] [place] [address] Referral ID Status Reason Start Date Expiration Date Visits Requested Visits Authorized [id number] Authorized Consult, Test & Treat PCP Updated and/or Approved 2024 10/12/2024 6 6 Encounter Details Date Type Department Care Team (Late st Contact Info) Description 04/26/2024 Transcribe Orders eDH Incoming Referrals [phone] Scarlett Zhu MD [address] [place] [address] Sleep apnea, unspecified type Social History Tobacco Use Types Packs/Day Years Used Date Smoking Tobacco: Never Smokeless Tobacco: Never Alcohol Use Standard Drinks/Week Comments Never 0 (1 standard drink = 0.6 oz pur e alcohol) [facility] Utilities Answer Date Recorded In the past [...] slept in a halfway (including now)? No 03/18/2024 DH IPV Inpatient [...] Associated Diagnoses Orde r Schedule Referral to [facility] Center Outpatient Referral Routine Sleep apnea, unspecified type Ordered: 04/26/2024 documented as of this encounter Visit Diagnoses Diagnosis Sleep apnea, unspecified type documented in this encounter Care Teams Beverage Distiller Relationship Specialty Start Date End Date Genevieve Baez MD [address] [place] [address] PCP - General Family Medicine 07/22/23 documented as of this encounter
--- OUTSIDE RECORDS SUMMARY | 2024-07-22 15:00 | XMS_ITS | Encounter Summary ---
Author Organization [facility] Address [facility] [place] [address] Care Team Providers Care Exchange Architect Name Role Phone Genevieve Baez MD Primary Care Provider [phone] Encounter Details Date Type Department Care Team (Late st Contact Info) Description 03/25/2024 [place] [phone] Brenda Hartman MD [facility] [place] [address] Social History Tobacco Use Types Packs/Day Years Used Date Smoking Tobacco: Never Smokeless Tobacco: Never Alcohol Use Standard Drinks/Week Comments Never 0 (1 standard drink = 0.6 oz pur e alcohol) [facility] Utilities Answer Date Recorded In the past 12 months has [employer] electric, gas, oil, or water company threatened [...] place to sleep or slept in a fdc (including now)? No 03/18/2024 DH IPV Inpatient [...] on file documented as of this encounter Miscellaneous Notes * Telephone Encounter - Brenda Hartman MD - 03/25/2024 2:47 PM EDT Spoke with Dr. Molina (pt's Urologist in [facility]). Discussed patients recent presentation, possible retained right upper pole retained fragment of stent vs cast of stent. Dr. Molina will plan to see patient and perform ureteroscopy just as patient completes his 2 week course of Cefadroxil on 04/04/24. documented in this encounter Plan of Treatment Not on file documented as of this encounter Visit Diagnoses Not on filedocumented in this encounter Care Teams Exchange Architect Relationship Specialty Start Date End Date Genevieve Baez MD [address] [place] [address] PCP - General Family Medicine 07/22/23 documented as of this encounter
--- OUTSIDE RECORDS SUMMARY | 2024-07-22 15:00 | XMS_ITS | Encounter Summary ---
Author Organization [facility] [place] [address] Care Team Providers Care Emc Storage Architect Name Role Phone Genevieve Baez MD Primary Care Provider [phone] Encounter Details Date Type Department Care Team (Late st Contact Info) Description 03/28/2024 Interpretation Only [address] [address] Iain Reyes MD [address] [place], [place] [id number] Social History Tobacco Use Types Packs/Day Years Used Date Smoking Tobacco: Never Smokeless Tobacco: Never Alcohol Use Standard Drinks/Week Comments Never 0 (1 standard drink = 0.6 oz pur e alcohol) [facility] Utilities Answer Date Recorded In the [...] place to sleep or slept in a assisted (including now)? No 03/18/2024 IPV Inpatient Questions [...] Name Priority Date/Time Associated Diagnosis Comments XR CHEST ONE VIEW STAT 03/28/2024 2:3 1 PM EDT documented in this encounter Results * XR Chest One View (03/28/2024 2:31 PM EDT) PT CLASS E RAD ADMITDTTM [id number] RAD PT RAD MD INFO [id number]^Findle y^Christopher^Carolyn d RAD EXAM DESC XCXR1^XR Chest 1 View^RIS [facility] WORKSTATION ID [id number] [facility] Anatomical Region Laterality Modality Chest N/A Radiographic Gricel ging 03/28/2024 2:31 PM EDT Impressions 03/28/2024 2:36 PM EDT Clear lungs. Thank you for letting us participate in the care of this patient. ??If you are a health care provider and have any questions regarding this report, please contact the number below. ??For patients who have questions please contact the health day care center director that requested your imaging first. ? Electronically signed by: Howard Tamez [facility] ([phone]), at 03/28/2024 2:36 PM Narrative 03/28/2024 2:36 PM EDT EXAMINATION: XR Chest 1 View CLINICAL HISTORY: chills FINDINGS: Single AP view of the chest was obtained and compared to prior examination of 03/16/2024. The lungs are clear. There is no evidence of pleural effusions or pneumothorax. Cardiomediastinal silhouette is unremarkable. Left-sided Hjbwgb-z-Jczm, unchanged. Procedure Note Howard Tamez MD - 03/28/2024 EXAMINATION: XR Chest 1 View CLINICAL HISTORY: chills FINDINGS: Single AP view of the chest was obtained and compared to prior examination of 03/16/2024. The lungs are clear. There is no evidence ofpleural effusions or pneumothorax. Cardiomediastinal silhouette is unremarkable. Left-sided Yculxz-f-Tidq, unchanged. IMPRESSION Clear lungs. Thank you for letting us participate in the care of this patient. If youare a health care provider and have any questions regarding this report,please contact the number below. For patients who have questions please contactthe health day care center director that requested your imaging first. Electronically signed by: Howard Tamez [facility]([phone]), at 03/28/2024 2:36 PM Iain Reyes MD IMG DX ORDERABL ES documented in this encounter Visit Diagnoses Not on filedocumented in this encounter Care Teams Emc Storage Architect Relationship Specialty Start Date End Date Genevieve Baez MD [address] [place] [address] PCP - General Family Medicine 07/22/23 documented as of this encounter
--- OUTSIDE RECORDS SUMMARY | 2024-07-22 15:00 | XMS_ITS | Encounter Summary ---
Author Organization [facility] [place] [address] Care Team Providers Care Lever Operator Name Role Phone Genevieve Baez MD Primary Care Provider [phone] Encounter Details Date Type Department Care Team (Late st Contact Info) Description 06/23/2024 Interpretation Only [address] [address] Thom Albrecht MD [address] [place] [id number] Social History Tobacco Use Types Packs/Day Years Used Date Smoking Tobacco: Never Smokeless Tobacco: Never Alcohol Use Standard Drinks/Week Comments Never 0 (1 standard drink = 0.6 oz pur e alcohol) [facility] Utilities Answer Date Recorded In the past 12 months has [employer] electric, gas, oil, or water company threatened [...] place to sleep or slept in a fpc (including now)? No 03/18/2024 IPV Inpatient Questions [...] Associated Diagnosis Comments XR CHEST ONE VIEW Routine 06/23/2024 7:4 4 AM EDT documented in this encounter Results * XR Chest One View (06/23/2024 7:44 AM EDT) PT CLASS I RAD ADMITDTTM [id number] RAD PT RAD INFO [id number]^Mcdoug all^Thom^Terry RAD EXAM DESC XCXR1^XR Chest 1 View^RIS RAD WORKSTATION ID [id number] [facility] Anatomical Region Laterality Modality Chest N/A Radiographic [...] who have questions please contact the health pet care technician that requested your imaging first. ? Electronically signed by: Durga Parr MD, [facility] ([phone]), at 06/23/2024 9:18 AM Narrative 06/23/2024 9:18 AM EDT EXAMINATION: XR [...] patients who have questions please contactthe health pet care technician that requested your imaging first. Electronically signed by: Durga Parr MD, [facility]([phone]), at 06/23/2024 9:18 AM Thom C Trena MD IMG DX ORDERABLES documented in this encounter Visit Diagnoses Not on filedocumented in this encounter Care Teams Lever Operator Relationship Specialty Start Date End Date Genevieve Baez MD [address] [place] [address] PCP - General Family Medicine 07/22/23 documented as of this encounter
--- OUTSIDE RECORDS SUMMARY | 2024-07-22 15:00 | XMS_ITS | Encounter Summary ---
[place] [address] Care Team Providers Care Regulatory Scientist Name Role Phone Genevieve Baez MD Primary Care Provider [phone] Reason for Referral * Home Health Care (Routine) - Authorized Specialty Diagnoses / Procedures Referred By Ness palacio Referred To Contact Diagnoses Complicated UTI (urinary tract infection) [place] [address] Referral ID Status Reason Start Date Expiration Date Visits Requested Visits Authorized [id number] Authorized Consult, Test & Treat 03/21/2024 09/17/2024 999 999 Reason for Visit * Reason Comments Fever * Auth/Cert (Routine) Specialty Diagnoses / Procedures Referred By Ness palacio Referred To Contact Diagnoses Complicated UTI (urinary tract infection) [place] [address] [facility] Referral ID Status Reason Start Date Expiration Date Visits Re quested Visits Authorized [id number] 1 1 Encounter Details Date Type Department Care Team (Latest Contact Info) Description 03/16/2024 5:10 PM EDT - 03/21/2024 5:30 PM EDT Hospital Encounter Surgical Unit Level 4 [place] [address] Dedra Ibarra MD [facility] [place] [address] [place] [address] [place] [address] [place] [address] [place] [address] Urinary tract infection associated with catheterization of urinary tract, unspecified indwelling urinary catheter type, initial encounter; Complicated UTI (urinary tract infection) Discharge Disposition: Home with VNA Social History Tobacco Use Types Packs/Day Years Used Date Smoking Tobacco: Never Smokeless Tobacco: Never Alcohol Use Standard Drinks/Week Comments Never 0 (1 standard drink = 0.6 oz pur e alcohol) [facility] Utilities Answer Date Recorded In the past 12 months has [employer], gas, oil, or water [facility] threatened to shut off services in your [...] place to sleep or slept in a residential (including now)? No 03/18/2024 DH IPV Inpatient [...] on file documented as of this encounter Last Filed Vital Signs Vital Sign Reading [...] Mass Index 24.27 03/16/2024 5:20 PM EDT documented in this encounter Discharge Summaries * Eusebio Loomis MD - 03/19/2024 1:14 PM EDT Hospital Medicine - Discharge Summary Patient Name: Bruce Velasquez Jr. Patient Age: 58 y.o. Birthdate: 1965 Admit date: 03/16/2024 Discharge date and time: 03/21/2024 Attending Physician: Eusebio Loomis MD Follow-up Recommendations for Providers: #Sethi Med Changes: start cefadroxil 1000 mg twice daily for 14 days followed by cefadroxil 500 mg twice daily until ureteroscopy *PENDING LABS: none Discharge Diagnoses (Hospital Problems) and Secondary Diagnoses (Chronic Problems): Active Hospital Problems Diagnosis Complicated UTI (urinary tract infection) Quadriplegia Neurogenic bladder Resolved Hospital Problems No resolved problems to display. Operations/Major Procedures: History of Presentation: The patient is a 58 y.o. male w/ history of quadriplegia s/p fall from roof 10/26/2020 with s/p C4-T2 spinal fusion for C6-7 bilateral facet dislocation, neurogenic bladder/bowel with suprapubic tubeand cystostomy, colostomy, stage-4 left-sided ischial pressure ulcer followed by wound care, hx of chronic recurrent multifocal osteomyelitis. He has recent admission during 10/25/2023- 11/10/2023 for pseudomonas bacteremia/ sepsis from complicated UTI (Ucx grew multiple organisms)/ UPJ obstruction (s/p Rt ureteral stent and bladder stones removed) and hypoxic respiratory failure 2/2 aspiration pneumonia/ mucus plug s/p bronchoscopy. Per his daughter, the patient was admitted at [facility] for pneumonia couple months ago, was also treated for URI, sepsis. He has UTIs multiple times and has been on abx for chronic osteomyelitis. Per [facility] hx, he was placed on multiple antibiotics since December. Recently, was treated for UTI with bactrim. He has 2 real time operator caregivers and home health nurse visiting 3 times a week, caring for h is wound and suprapubic catheter. Unclear when his suprapubic catheter has last changed. His decubital ulcer in Lt buttock seems to be healing. His baseline is oriented x 3, conversant. Earlier today his visiting nurse noted he had temperature of 102.8 F. He reports he had some shortness of breath and cough off and on. Denies chest pain, nausea, vomiting, abdominal pain, diarrhea. ED course - HDS, febrile to 101 F. Awake, required repeated prompting to answer questions which is not at his baseline, per his daughter he has changed mental status quite often when he has infection. His decubital ulcer in Lt buttock was with clean packing strip, no surrounding erythema or active drainage. UA with wbc > 100, negative nitrite. Normal Cr, no leukocytosis, VBG showed no CO2 retention. Lactate 1.0 The patient was given zosyn and vancomycin, IVF bolus 2500 cc. Hospital Course: # Concern for complicated UTI, early sepsis # Quadriplegia, neurogenic bladder with suprapubic catheter - s/p Zosyn and Vancomycin, -> Ancef 03/18 on sensitivities resulted revealing proteus. Blood culture remained NG but given fever on IV Zosyn and h/o complicated infections CT A/P w/o was done and revealed retained foreign body or wire fragment within the right collecting system & R perinephric stranding c/f pyelonephritis (see full report below). Urology consult opted for 2 week antibioticcourse and outpt staged ureteroscopy with suppressive antibiotics in the interim. His SPT was exchanged on 03/20/24. # Toxic metabolic encephalopathy: Resolved on HD1 pointing to likely infectious transport driver of encephalopathy on presentation. # Decubital ulcer Lt buttock, hx of chronic osteomyelitis Wound care consult on HD1 w/o c/f active decubital SSTI or osteomyelitis. Important Studies and Lab Data: Recent Labs 03/20/2461903/19/24 03403/18/24 0603/16/24 2024 WBC 4.7 4.5 5.1 8.8 HGB 10.5* 10.3* 10.0* 10.2* PLATELET 155 133* 122* 117* Recent Labs 03/20/24 0603/19/24 0345 03/18/24 0603/16/24 1743 NA 143 144 143 138 K 3.6 3.5 3.4* 4.4 CL 107 107 107 103 CO2 27 27 25 25 BUN 14 14 13 22* CREATININE 0.52* 0.52* 0.59* 0.64* GLUCOSE 84 86 82 107 Recent Labs 03/20/24 0603/19/24 0345 03/18/24 0600 03/16/24 1743 CALCIUM 8.8 9.0 8.7 9.5 MAGNESIUM -- -- -- 0.78 No results for input(s): AST, ALT, ALKPHOS, BILITOT, BILIDIR in the last 168 hours. Recent Labs 03/16/24 1743 INR 1.2 Recent Labs 10/25/23 0758 HA1C 4.8 Microbiology: Microbiology Results (Last 30 days) Procedure Component Value Units Date/Time Urine culture [[id number]] (Abnormal) (Susceptibility) Collected: 03/16/242117 Lab Status: Final result Specimen: Indwelling Catheter Urine Updated: 03/18/24 0804 Urine Culture 10,000-49,000 cfu/ml Proteus mirabilis Susceptibility Proteus mirabilis VITEK 2 METHOD Amikacin Sensitive Ampicillin + Sulbactam Sensitive Aztreonam Sensitive Cefazolin Sensitive Cefepime Sensitive Ceftazidime Sensitive Ceftriaxone Sensitive Ertapenem Sensitive Gentamicin Sensitive Levofloxacin Resistant [1] Meropenem Sensitive Nitrofurantoin Resistant Piperacillin/Tazobactam Sensitive Tetracycline Resistant Tobramycin Sensitive Trimethoprim/Sulfa Resistant [1] Levofloxacin and Ciprofloxacin may not adequately treat infections in critically ill patients even when isolates test susceptible in the laboratory. Contact Infectious Disease before using in critically ill patients. Respiratory Panel PCR [[id number]] Collected: 03/16/24 1826 Lab Status: Final result Specimen: Nasopharyngeal Swab Updated: 03/16/242026 Resp Panel Source SIDE DOOR WORKER Swab Resp Panel PCR Negative Comment: Respiratory Panels are performed on the Innob[employer], using multiplexed PCR nucleic acid detection. Negative results do not preclude respiratory infection and should not be used as the sole basis for diagnosis, treatment or other management decisions. Adenovirus Not Detected Coronavirus HKU1 Not Detected Coronavirus NL63 Not Detected Coronavirus 229E Not Detected Coronavirus OC43 Not Detected SARS-CoV-2 Not Detected Comment: Testing for SARS-CoV-2 (Severe acute respiratory syndrome coronavirus 2) to aid in the diagnosis of COVID-19 is performed using the [employer] Respiratory Panel 2.1 (Pond5) as authorized by the FDA issued Emergency Use Authorization (EUA). This panel also tests for multiple other viral and bacterial pathogens. This assay is intended for In-vitro Diagnostic (IVD) use with nasopharyngeal swabs in viral transport media. The assay is performed based on the instructions for use and additional guidance provided by the FDA. Testing is performed in laboratories within the [facility], each of which is certified under the Clinical Laboratory Improvement Amendments of 1988 (CLIA), 42 U.S.C. section 263a, to perform high-complexity tests. Assay performance has been verified according to clinical laboratory regulatory requirements. The test result for SARS-CoV-2 provided above should be interpreted in combination with the clinical observation, patient history and epidemiological information. For testing of asymptomatic individuals, assay performance characteristics and clinical utility have not been evaluated. A result of Not Detected indicates that the viral RNA target is not present but does not preclude SARS-CoV-2 infection. False negative results may occur if a specimen is improperly collected, transported or handled; if amplification inhibitors are present; or if inadequate numbers of viral particles are present in the specimen. When a diagnostic test is negative, the possibility of a false negative result should be considered in the context of a patient's recent exposures and the presence of clinical signs and symptoms consistent with COVID-19. A result of Detected suggests a current or recent infection. Positive and negative predictive values for this test are dependent on disease prevalence. A result of Invalid indicates the inability to conclusively determine the presence or absence of SARS-CoV-2 RNA in the sample which can be due to a variety of factors. Collection of a new sample for repeat testing is recommended in the case of an invalid result. CDC COVID-19 criteria for testing on human specimens and clinical management guidance information are available at the CDC Coronavirus Disease 2019 (COVID-19) webpage under Information for Healthcare Professionals (https://www.cdc.gov/coronavirus/2019-ncov/hcp/index.html). Additional information about this and other EUA tests can be found in provider and patient fact sheets at the following FDA website: https://www.fda.gov/medical-devices/zgdtxcoybtn-lbibowv-2640-vofbt-22-fpvtnazae- cvj-qvvvjswksgkmld-pihvrej-devices/gwwcf-wqsrqkekxls-xynw Human Metapneumovirus Not Detected Human Rhino/Enterovirus Not Detected Influenza A Not Detected Influenza B Not Detected Parainfluenza 1 Not Detected Parainfluenza 2 Not Detected Parainfluenza 3 Not Detected Parainfluenza 4 Not Detected Respiratory Syncytial Virus Not Detected Chlamydophila pneumoniae Not Detected Mycoplasma pneumoniae Not Detected Blood culture [[id number]] Collected: 03/16/24 1825 Lab Status: Preliminary result Specimen: Blood Updated: 03/20/24 2301 Blood Culture No growth at 4 days. Blood culture [[id number]] Collected: 03/16/24 1743 Lab Status: Preliminary result Specimen: Blood Updated: 03/20/24 2301 Blood Culture No growth at 4 days. Pertinent radiology/diagnostic studies: Results for orders placed or performed during the hospital encounter of 03/16/24 XR Chest One View (Exam End: 03/16/2024 5:59 PM) Result Value WORKSTATION ID [id number] Impression No evidence of pneumonia or other acute cardiopulmonary process. Thank you for letting us participate in the care of this patient. If you are a health care provider and have any questions regarding this report, please contact the number below. For patients who have questions please contact the health respiratory care assistant that requested your imaging first. Abdomen & Pelvis wo Contrast (Exam End: 03/18/2024 5:39 PM) Result Value WORKSTATION ID [id number] Impression 1. Unexpected finding concerning for retained foreign body or wire fragment within the right collecting system. 2. Increased number of nonobstructing right nephrolithiasis. 3. Increased conspicuity of right perinephric stranding. Pyelonephritis not excluded. Correlation to urinalysis recommended. 4. Nonobstructing dependent cholelithiasis. 5. Stable morphology of descending colostomy and oversewn long segment rectosigmoid stump that remains distended with fecal material. 6. Phlegmon versus soft tissue scarring at site of right ischial decubitus ulcer. Thank you for letting us participate in the care of this patient. If you are a health care provider and have any questions regarding this report, please contact the number below. For patients who have questions please contact the health respiratory care assistant that requested your imaging first. Vital Signs at Discharge: BP: (!) 162/98, Heart Rate: 60, Temp: 36.5 ??C (97.7 ??F), Resp: 18, BMI (Calculated): 24.26 Height: 188 cm (6' 2) (03/16/24 1720) Weight: 85.7 kg (189 lb) (03/16/24 1720) Discharge to: home Discharge Medications: Your Medications New Medications Dose Details cefaDROXiL 500 mg capsule Commonly known as: Duricef Take TWO capsules by mouth twice daily for 14 days, THEN take ONE capsule twice daily until your urology procedure Quantity: 84 capsule Refills: 0 Continued medications with new dosing Dose Details diclofenac 1 % Gel Commonly known as: Voltaren Apply topically 4 times daily as needed. What changed: Another medication with the same name was removed. Continue taking this medication, and follow the directions you see here. Quantity: 100 g Refills: 3 senna 8.6 mg tablet Commonly known as: Senokot Take 2 tablets by mouth 2 times daily. What changed: how much to take Another medication with the same name was removed. Continue taking this medication, and follow the directions you see here. 2 tablet Refills: 0 Continued medications, unchanged Dose Details acetaminophen 500 mg tablet Commonly known as: Tylenol Take 1,000 mg by mouth Every 8 hours as needed. 1,000 mg Refills: 0 ascorbic acid (Vitamin C) 250 mg tablet Commonly known as: Vitamin C Take 250 mg by mouth 2 times daily. 250 mg Refills: 0 baclofen 20 mg tablet Commonly known as: Lioresal Take 3 tablets by mouth 3 times daily. 60 mg Refills: 0 cholecalciferoL 1,000 unit tablet Commonly known as: Vitamin D3 Take 1 tablet by mouth daily. 1 tablet Refills: 0 divalproex ER 500 mg ER 24 hr tablet Commonly known as: Depakote ER Take 1 tablet by mouth 2 times daily. 500 mg Refills: 0 docusate sodium 100 mg capsule Commonly known as: Colace Take 100 mg by mouth 3 times daily. 100 mg Refills: 0 FLORANEX ORAL Take 1 tablet by mouth 3 times daily. 1 tablet Refills: 0 ketoconazole 2 % Cream Commonly known as: Nizoral Apply topically daily. Quantity: 30 g Refills: 0 LORazepam 1 mg tablet Commonly known as: Ativan Take 1 tablet by mouth 3 times daily. TID plus 2 additional tablets PRN MDD 5mg 1 mg Refills: 0 mirabegron ER 25 mg ER 24 hr tablet Commonly known as: Myrbetriq Take 1 tablet by mouth daily. 25 mg Refills: 0 multivitamin Tablet Commonly known as: THERAGRAN Take 1 tablet by mouth daily. 1 tablet Refills: 0 naloxone 1 mg/mL Syringe Commonly known as: Narcan For opioid overdose,spray 1 mL in each nostril. Repeat after 3-5 minutes if no or minimal response.Call 911 before administration. Quantity: 4 mL Refills: 0 pregabalin 25 mg capsule Commonly known as: Lyrica Take 1 capsule by mouth 3 times daily. 25 mg Refills: 0 QUEtiapine 25 mg tablet Commonly known as: SEROquel Take 12 tablets by mouth nightly. 300 mg Refills: 0 tamsulosin 0.4 mg capsule Commonly known as: Flomax Take 1 capsule by mouth daily. 0.4 mg Quantity: 90 tablet Refills: 3 traZODone 100 mg tablet Commonly known as: Desyrel Take 100 mg by mouth nightly. 100 mg Refills: 0 STOPPED Medications albuteroL 90 mcg/actuation inhaler (HFA) apixaban 5 mg tablet Commonly known as: Eliquis busPIRone 10 mg tablet Commonly known as: Buspar doxycycline 100 mg tablet Commonly known as: Lymepak lactulose 10 gram/15 mL Solution Commonly known as: Chronulac melatonin 10 mg tablet midodrine 2.5 mg tablet Commonly known as: Proamatine mirtazapine 45 mg tablet Commonly known as: Remeron phenyleph-min oil-petrolatum 0.25-14-74.9 % Ointment sulfamethoxazole-trimethoprim DS 800-160 mg tablet Commonly known as: Bactrim DS zolpidem 10 mg tablet Commonly known as: Ambien Updated Allergies/ADRs: Allergies Allergen Reactions Hydromorphone Other (See Comments) Daughter states makes him irritable and has hallucinations Patient Instructions Instruction after leaving the hospital Why you were hospitalized: You came into the hospital for fevers and were found to have a urinary infection. We treated you with antibiotics with resolution of your fevers. We performed a CT of your abdomen that showed a possible foreign body in your right kidney. Please continue full dose antibiotics for 14 days, then take half-dose suppressive antibiotics until urology is able to investigate the foreign body in your kidney. Urology will give you a call to discuss scheduling this procedure. Call your doctor or seek medical attention if you develop the following: Call your doctor or seek medical attention if you experience any alarming symptoms. This may include, but is not limited to, fever, chest pain, severe shortness of breath, nausea with vomiting, persistent decrease in your urinary output, severe pain, or any other concerning symptoms. Changes in Your Medications: New Medications: cefadroxil 1000 mg twice daily for 14 days followed by 500 mg twice daily until your urology procedure Medication dose changes: none Stop these medications: none Follow-Up Appointments Date and Time Provider and Specialty Location See below Genevieve Baez MD , PCP [address] / [place], [place] [address] Your Inpatient Doctor(s[place] [facility] Eusebio Loomis MD Your Primary Care Provider: Genevieve Baez MD [address] [facility] [address] For questions regarding this document or issues relating to this hospitalization on the Medical Service, please contact your inpatient physician through the [facility] Corporate Safety Coordinator . Issues afterhours and on weekends will be handled by the Hospitalist staff on-call. The Section of Hospital Medicine hopes you have a safe and stress free transition out of the hospital. As an additional safeguard to help this transition happen seamlessly we have created a tool to help us stay in communication in case there are any questions or concerns after your discharge. If you are not being discharged to another care setting, where they will take over your medical care, please anticipate a brief questionnaire from our Section that will help us ensure you do not have any issues with your discharge and are as safe and healthy as possible. This questionnaire will be sent out after your discharge, and will be delivered via text primarily but also email if texting is not possible. If there do happen to be any issues or concerns once you leave [facility], we apologize for any undue stress this may cause. Please do not hesitate to call your PCP office or seek further medical assistance if there are any [facility]. This questionnaire is not meant to provide immediate access to a physician, but has been created to help us ease the transition out of the hospital. Someone from our Section will reach out after the questionnaire is completed if you have raised any concerns, or have requested a callback, to help ensure your concerns are addressed and a plan is made to keep you safe and healthy. Thankyou in advance for your time completing this questionnaire. Future Appointments and Orders Future Orders Complete By Expires Referral to [facility] [[id number] Custom] As directed Process Instructions: If no progress note charted, please enter Clinical details in comments. Scheduling Instructions: Comments: Please evaluate Bruce Velasquez Jr. for admission to [facility]. [place] [facility] [address] (home) Date of : 1965 Inpatient DOCUMENTATION FOR VNA SERVICES (INCLUDING THOSE PATIENTS WITH MEDICARE COVERAGE REQUIRING HOME VNA SERVICES AND/OR HOSPICE SERVICES) [facility] [address] [facility] Cell: Telephone Information: Freezer Machine Operator's Name: self In discussion with the attending physician, it is certified that this patient is under their care and that they, or a Nurse Practitioner, Clinical Nurse specialist or Physician Target Aircraft Technician who is working directly with them, had a face to face encounter that meets the physician face to face encounter requirements with this patient on 03/21/24 The encounter with the patient was in whole, or in part, for the following medical condition, whichis the primary reason for home health care services: urinary infection In discussion with the provider, it is certified that, based on their findings, the following services are medically necessary for home health services. To provide the following care/treatments with the clinical findings supporting the need for services as follows: HOME CARE ORDERS: RN ORDERS: Assess vital signs, cardiopulmonary status, nutrition, hydration, elimination -Additional Orders: Monitor medication effectiveness and management, Reinforce education regarding health issues, and Assess wound or incision PT ORDERS: Continue rehab for endurance, gait stability and strength with mobility and transfers. Home safety evaluation. Home exercise program if appropriate. OT ORDERS: Assess and continue rehab for managing ADLs. Home Health Aide: Assist with personal care activities, ie. dressing/bathing HOME HEALTH CARE AGENCY: [facility] [address] [address] START OF CARE: within 24-48 hours of discharge In discussion with the attending physician, it is certified that the clinical findings support thatthis patient is homebound because absences from home require considerable and taxing effort due to:Unable to ambulate community surfaces or distances unassisted due to pain, lower extermity weaknessor decreased balance and risk for falls. Please note that any additional orders needs or changes will need to be obtained from this patient's PCP: Genevieve Baez MD [address] / [place], [place] [address] . All VNA agencies which cover the area of patient's residence have been reviewed, either verbally or in writing, and patient/family have chosen the home health care agency noted. Questions: Disciplines Requested: Home Health Aide Occupational Therapy Physical Therapy Nursing For questions regarding this document or issues relating to this hospitalization on the Medical Service, please contact your inpatient physician through the [facility] Corporate Safety Coordinator . Issues afterhours and on weekends will be handled by the Hospitalist staff on-call. Signed: Eusebio Loomis MD documented in this encounter Discharge Instructions * Discharge Instructions* Lucie Aguirre CMA - 03/21/2024 10:02 AM EDT YOU ARE SCHEDULED FOR FOLLOW UP APPOINTMENT AT HOME, WITH YOUR PRIMARY CARE PROVIDER, ON 04/13/2024 AT 11:00AM * Patient Instructions* Eusebio Loomis MD - 03/17/2024 8:11 AM EDT Instruction after leaving the hospital Why you were hospitalized: You came into the hospital for fevers and were found to have a urinary infection. We treated you with antibiotics with resolution of your fevers. We performed a CT of your abdomen that showed a possible foreign body in your right kidney. Please continue full dose antibiotics for 14 days, then take half-dose suppressive antibiotics until urology is able to investigate the foreign body in your kidney. Urology will give you a call to discuss scheduling this procedure. Call your doctor or seek medical attention if you develop the following: Call your doctor or seek medical attention if you experience any alarming symptoms. This may include, but is not limited to, fever, chest pain, severe shortness of breath, nausea with vomiting, persistent decrease in your urinary output, severe pain, or any other concerning symptoms. Changes in Your Medications: New Medications: cefadroxil 1000 mg twice daily for 14 days followed by 500 mg twice daily until your urology procedure Medication dose changes: none Stop these medications: none Follow-Up Appointments Date and Time Provider and Specialty Location See below Genevieve Baez MD , PCP [address] / [place], [place] [address] Your Inpatient Doctor(s) at [facility] Eusebio Loomis MD Your Primary Care Provider: Genevieve [facility]aez MD [address] [facility] [address] For questions regarding this document or issues relating to this hospitalization on the Medical Service, please contact your inpatient physician through the [facility] Corporate Safety Coordinator . Issues afterhours and on weekends will be handled by the Hospitalist staff on-call. The Section of Hospital Medicine hopes you have a safe and stress free transition out of the hospital. As an additional safeguard to help this transition happen seamlessly we have created a tool to help us stay in communication in case there are any questions or concerns after your discharge. If you are not being discharged to another care setting, where they will take over your medical care, please anticipate a brief questionnaire from our Section that will help us ensure you do not have any issues with your discharge and are as safe and healthy as possible. This questionnaire will be sent out after your discharge, and will be delivered via text primarily but also email if texting is not possible. If there do happen to be any issues or concerns once you leave [facility], we apologize for any undue stress this may cause. Please do not hesitate to call your PCP office or seek further medical assistance if there are any immediate concerns aboutyour health. This questionnaire is not meant to provide immediate access to a physician, but has been created to help us ease the transition out of the hospital. Someone from our Section will reach out after the questionnaire is completed if you have raised any concerns, or have requested a callback, to help ensure your concerns are addressed and a plan is made to keep you safe and healthy. Thankyou in advance for your time completing this questionnaire. documented in this encounter Medications at Time of Discharge Medication Sig Dispensed Refills Start Date End Date baclofen (Lioresal) 20 mg tablet Take 3 tablets by mouth 3 times daily. 03/21/2024 divalproex ER (Depakote ER) 500 mg ER 24 hr tablet Take 1 tablet by mouth 2 times daily. 03/21/2024 LORazepam (Ativan) 1 mg tablet Take 1 tablet by mouth 3 times daily. TID plus 2 additional tablets PRN MDD 5mg 03/21/2024 QUEtiapine (SEROquel) 25 mg tablet Take 12 tablets by mouth nightly. 03/21/2024 senna (Senokot) 8.6 mg tablet Take 2 tablets by mouth 2 times daily. 03/21/2024 cefaDROXiL (Duricef) 500 mg capsule Take TWO capsules by mouth twice daily for 14 days, THEN take ONE capsule twice daily until your urology procedure 84 capsule 03/21/2024 multivitamin (THERAGRAN) Tablet Take 1 tablet by mouth daily. traZODone (Desyrel) 100 mg tablet Take 100 mg by mouth nightly. ascorbic acid, Vitamin C, (Vitamin C) 250 mg tablet Take 250 mg by mouth 2 times daily. cholecalciferoL (Vitamin D3) 1,000 unit tablet Take 1 tablet by mouth daily. mirabegron ER (Myrbetriq) 25 mg ER 24 hr tablet Take 1 tablet by mouth daily. 11/09/2023 pregabalin (Lyrica) 25 mg capsule Take 1 capsule by mouth 3 times daily. 11/09/2023 tamsulosin (Flomax) 0.4 mg capsule Take 1 capsule by mouth daily. 90 tablet 3 11/09/2023 diclofenac (Voltaren) 1 % Gel Apply topically 4 times daily as needed. 100 g 3 11/09/2023 ketoconazole (Nizoral) 2 % Cream Apply topically daily. 30 g 11/09/2023 naloxone (Narcan) 1 mg/mL Syringe For opioid overdose,spray 1 mL in each nostril. Repeat after 3-5 minutes if no or minimal response. Call 911 before administration. 4 mL 11/09/2023 docusate sodium (Colace) 100 mg Capsule Take 100 mg by mouth 3 times daily. 01/13/2021 acetaminophen (Tylenol) 500 mg Tablet Take 1,000 mg by mouth Every 8 hours as needed. 01/13/2021 L. acidophilus/L.bulgaric us (FLORANEX ORAL) Take 1 tablet by mouth 3 times daily. documented as of this encounter Progress Notes * Florentin Dhaliwal, SWETHA - 03/21/2024 5:28 PM EDT Patient discharged to home by BLS transport. [employer] de-accessed, site benign. My assessment remains unchanged from my previous assessment. RN Discussed pain management with patient, pain tolerable.Patient has all belongings and supplies needed. Patient received After Visit Summary and prescriptions. These were reviewed, patient verbalizes understanding of AVS. All questions answered. Patient encouraged to call with questions or concerns. Pt expressed thanks for care received by this marine underwriter and [facility] staff during hospitalization. * Eusebio Loomis MD - 03/21/2024 11:42 AM EDT Hospital Medicine - Attending Day of Discharge Documentation Discharge diagnosis Active Hospital Problems Diagnosis Complicated UTI (urinary tract infection) Quadriplegia Neurogenic bladder Resolved Hospital Problems No resolved problems to display. Secondary Issues Active Non-Hospital Problems Diagnosis Pressure injury of left ischium, stage 4 Impaired mobility Pressure injury of left buttock, stage 4 Chronic recurrent multifocal osteomyelitis History of caloric malnutrition Pressure injury of buttock, stage 4 S/P colostomy S/P C4-T2 PSIF for C6-7 bilateral facet dislocation 10/27/20 Dr. Tong Cervical spine fracture Superficial skin infection I have personally seen and examined the patient and they are ready for discharge. I spent >30 minutes (Day of Discharge Code 11387) involved in the final examination of the patient, discussion of the hospital stay, instructions for continuing care to all relevant caregivers, and preparation of discharge records, prescriptions and referral forms. Plans Discharge to home Follow-up scheduled with PCP, to be scheduled with urology Please see the Discharge Summary for complete details of any medication changes and additional plans. * Noni Ernandez - 03/21/2024 10:53 AM EDT [facility] ambulance arranged for 1600 transport. * Danielle Jaime RN - 03/21/2024 10:13 AM EDT Physician Certification Statement for Non-Emergency Ambulance Services Section I - General Information Bruce Velasquez Jr. 1965 Medicare Number: [id number] Transport Date: 03/21/2024 (PCS is valid for round trips on this date and for all repetitive trips in the 60-day range as note/d below.) Origin: [address] [address] Destination: [address] [place] [id number] Is the patient's stay covered under Medicare Part A (PPS/DRG)?: Yes Closest appropriate facility? Yes Transfer Type: N/A Section II - Medical Necessity Questionnaire Ambulance Transportation is medically necessary only if other means of transport are contraindicated or would be potentially harmful to the patient. To meet this requirement, the patient must be either bed confined or suffer from a condition such that transport by means other than ambulance is contraindicated by the patient's condition. The following questions must be answered by the medical professional signing below for this form to be valid: 1) Describe the MEDICAL CONDITION (physical and/or mental) of this patient AT THE TIME OF AMBULANCETRANSPORT that requires the patient to be transported in an ambulance and why transport by other means is contraindicated by the patient's condition: paraplegic 2) Is the patient bed confined as defined below? Yes To be bed confined the patient must satisfy all three of the following conditions: - unable to get up from bed without assistance AND unable to ambulate AND unable to sit in a chair or wheelchair. 3) Can this patient safely be transported by car or wheelchair van (i.e. seated during transport, without medical insurance collector or monitoring?): No 4) In addition to complete questions 1-3 above, please select any of the following conditions that apply: *Note: supporting documentation for any boxes checked must be maintained in the patient's medical records guest attendant required Unable to tolerate seated position for time needed to transport Section III - Signature of Physician or Healthcare Professional I certify that the above information is true and correct based on my evaluation of this patient, and represent that the patient requires transport by ambulance and that other forms of transport are contraindicated. I understand that this information will be used by the Centers of Medicare and Medicaid Services ([facility]) to support the determination of medical necessity for ambulance services, and I represent that I have personal knowledge of the patient's condition at the time of transport. Danielle Jaime RN 03/21/24 Form was electronically signed and dated by the patient's Physician or Healthcare Professional *Form must be signed only by patient's attending physician for scheduled, repetitive transports. For non-repetitive, unscheduled ambulance transports, when unable to obtain the signature of the attending physician, this form was signed by Registered Nurse * Cara Anthony RN - 03/21/2024 4:37 AM EDT OUTCOME EVALUATION NOTE: OUTCOME SUMMARY: Patient AOx4, hypertensive at start of shift (MD Aware), otherwise VSS on RA. Denies nausea/vomiting, CP, SOB, pain, and numbness/tingling. Dressing to sacrum CDI. Patient voiding via suprapubic, LBMvia ostomy 03/20. Patient refusing all repositioning at this time. Patient resting in between care. PLAN MOVING FORWARD: Q2 Turns, Wound Care, Monitor I/Os, D/C Planning INDIVIDUALIZED FALL PREVENTION INTERVENTIONS: Patient is currently a HIGH risk to Fall. Patient educated on bed/chair alarm, demonstrates proper use of call marshall and verbalizes understanding of fall preventions implemented. Patient-specific fall risk factors per assessment: [current deficits]: Quad, IV Sites, Supra, Hospital Environment Assistance [level of assistance required for transfers and ambulation]: 2A + LIFT Supervision [direct monitoring required during toileting and ADLs]: Eyes on, Hands on, Lift Device Surveillance [continuous indirect monitoring]: Masimo, Bed Alarm, Purposeful Rounding, Nurse Knowledge Exchange Cara Anthony RN * Killian Luis MD - 03/20/2024 7:37 AM EDT Images from the original note were not included. Hospital Medicine Attending Daily Progress Note Admit Date: 03/16/2024 ( Hospital Day 3 days ) Active Hospital Problems Diagnosis Complicated UTI (urinary tract infection) Resolved Hospital Problems No resolved problems to display. ASSESSMENT/PLAN: Favio is a 58 y.o. male w/ history of quadriplegia s/p fall from roof 10/26/2020 with s/p C4-T2 spinal fusion for C6-7 bilateral facet dislocation, neurogenic bladder/bowel with chronic suprapubic catheter, colostomy, stage-4 left-sided ischial pressure ulcer followed by wound care, hx of chronic recurrent multifocal osteomyelitis, hx of recurrent UTIs with recent admission for pseudomonas bacteremia in October 2023, 03/20/2024: Remains stable. Switched to PO abx yesterday, tolerating well and afebrile. Urology recommends abx for 2 weeks and definitive management with ureteroscopy as an outpatient. We are trying to locate a suprapubic catheter of the correct size to exchange for his. I think Favio is appropriatefor discharge, but will need to coordinate transportation back to his facility, which is more likely to happen on Thursday. # Concern for complicated UTI with Proteus, early sepsis # Quadriplegia, neurogenic bladder with suprapubic catheter # Nephrolithiasis # Possible retained ureteral stent - s/p Zosyn and Vancomycin, -> Ancef 03/18 --> cefadroxil 03/19 - Will need catheter exchange prior to d/c - Plan 2 weeks abx after discharge and ureteroscopy to remove possible retained foreign body # Toxic metabolic encephalopathy: Resolved - due to infection as above, no other metabolic or toxic drivers on review of chart # Decubital ulcer Lt buttock, hx of chronic osteomyelitis - wound care consult appreciated, see note 03/18 # Home meds - divalproex ED 500 mg po daily - mirabegron ED 25 mg po daily - pregrabalin 25 mg po tid - tamsulosin 0.4 mg po daily - zolpidem 10 mg po hs prn - lorazepam 1 mg tid prn - Seroquel 25 mg po hs prn - Resumed his scheduled baclofen 20 mg TID now that confusion has resolved Diet Regular diet Discharge planning Likely to facility on 03/21 PT/OT/Speech Pt at reported functional baseline. Lines/Access PIV Beck catheter SPC DVT/GI Prophylaxis Lovenox Vital/lab/FS frequency Vitals Q6H while awake, Labs Qdaily Code status Do NOT Attempt CPR - Inpatient Family Caceres updated 03/18 in person PCP Genevieve Baez MD [phone] Attestation IPI Certification I certify that I am a [facility]-H credentialed attending provider with admitting privileges and that the patient meets or has met medical necessity to require an inpatient IPI level of care meeting a minimumof two midnights or is on the [facility] inpatient only procedure list (status C) due to: complicated UTI Team (25/05 Coverage) 2800 Killian Luis MD 03/20/2024 Subjective/24hr events: - Pt seen and examined at bedside - Doing well, knows why he is admitted. - Tolerating diet. - Denies any complaints ROS: Patient denies fevers, chills, nausea/vomiting, diarrhea/constipation, sob/cp Vitals: Last value Range last 24 hrs Temperature Temp: 36.8 ??C (98.2 ??F) Temp: [36.4 ??C (97.5 ??F)-37.5 ??C (99.5 ??F)] Heart Rate Heart Rate: 74 Heart Rate: -- Blood Pressure BP: (!) 162/94 BP: (92-164)/(55-95) Respiratory Rate Resp: 16 Resp: [16-19] SpO2 SpO2: 97 % SpO2: [94 %-97 %] Intake/Output Summary (Last 24 hours) at 03/20/2024 0738 Last data filed at 03/20/2024 0620 Gross per 24 hour Intake 400 ml Output 1900 ml Net -1500 ml EXAM GEN: Lying in bed comfortably, NAD, on RA, breathing comfortably, speaking in full sentences HEENT: Anicteric, no conjunctival pallor, EOMI CVS: regular rhythm, normal rate, S1+S2+no added sounds CHEST: CTABL, no added sounds ABD: Soft, ND/NT, BS+hang NEURO: AAO*3, at functional baseline, quadriplegic using R hand to interact with phone/ipad. EXT: trace pretibial edema b/l Lines/Tubes: ostomy, SPC and PIV LABS: Reviewed in eDH. Remarkable for the following: Recent Labs 03/20/24 0620 03/19/24 0345 03/18/24 0600 WBC 4.7 4.5 5.1 HGB 10.5* 10.3* 10.0* HCT 32.1* 31.8* 31.5* PLATELET 155 133* 122* Recent Labs 03/20/24 0620 03/19/24 0345 03/18/24 0600 NA 143 144 143 K 3.6 3.5 3.4* CL 107 107 107 CO2 27 27 25 BUN 14 14 13 CREATININE 0.52* 0.52* 0.59* GLUCOSE 84 86 82 CALCIUM 8.8 9.0 8.7 No results for input(s): AST, ALT, ALKPHOS, BILITOT, BILIDIR in the last 72 hours. MICRO: Recent Labs 03/16/24 2118 URINECULTURE 10,000-49,000 cfu/ml Proteus mirabilis* Recent Labs 03/16/24 1743 03/16/24 1825 BLOODCX No growth at 3 days. No growth at 3 days. Microbiology Results (Last 30 days) Procedure Component Value Units Date/Time Urine culture [[id number]] (Abnormal) (Susceptibility) Collected: 03/16/242117 Lab Status: Final result Specimen: Indwelling Catheter Urine Updated: 03/18/24 0804 Urine Culture 10,000-49,000 cfu/ml Proteus mirabilis Susceptibility Proteus mirabilis VITEK 2 METHOD Amikacin Sensitive Ampicillin + Sulbactam Sensitive Aztreonam Sensitive Cefazolin Sensitive Cefepime Sensitive Ceftazidime Sensitive Ceftriaxone Sensitive Ertapenem Sensitive Gentamicin Sensitive Levofloxacin Resistant [1] Meropenem Sensitive Nitrofurantoin Resistant Piperacillin/Tazobactam Sensitive Tetracycline Resistant Tobramycin Sensitive Trimethoprim/Sulfa Resistant [1] Levofloxacin and Ciprofloxacin may not adequately treat infections in critically ill patients even when isolates test susceptible in the laboratory. Contact Infectious Disease before using in critically ill patients. 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 Negative results do not preclude respiratory infection and should not be used as the sole basis for diagnosis, treatment or other management decisions. Adenovirus Not Detected Coronavirus HKU1 Not Detected Coronavirus NL63 Not Detected Coronavirus 229E Not Detected Coronavirus OC43 Not Detected SARS-CoV-2 Not Detected Comment: Testing for SARS-CoV-2 (Severe acute respiratory syndrome coronavirus 2) to aid in the diagnosis of COVID-19 is performed using the Bio[employer] Respiratory Panel 2.1 (Pond5) as authorized by the FDA issued Emergency Use Authorization (EUA). This panel also tests for multiple other viral and bacterial pathogens. This assay is intended for In-vitro Diagnostic (IVD) use with nasopharyngeal swabs in viral transport media. The assay is performed based on the instructions for use and additional guidance provided by the FDA. Testing is performed in laboratories within the [facility], each of which is certified under the Clinical Laboratory Improvement Amendments of 1988 (CLIA), 42 U.S.C. section 263a, to perform high-complexity tests. Assay performance has been verified according to clinical laboratory regulatory requirements. The test result for SARS-CoV-2 provided above should be interpreted in combination with the clinical observation, patient history and epidemiological information. For testing of asymptomatic individuals, assay performance characteristics and clinical utility have not been evaluated. A result of Not Detected indicates that the viral RNA target is not present but does not preclude SARS-CoV-2 infection. False negative results may occur if a specimen is improperly collected, transported or handled; if amplification inhibitors are present; or if inadequate numbers of viral particles are present in the specimen. When a diagnostic test is negative, the possibility of a false negative result should be considered in the context of a patient's recent exposures and the presence of clinical signs and symptoms consistent with COVID-19. A result of Detected suggests a current or recent infection. Positive and negative predictive values for this test are dependent on disease prevalence. A result of Invalid indicates the inability to conclusively determine the presence or absence of SARS-CoV-2 RNA in the sample which can be due to a variety of factors. Collection of a new sample for repeat testing is recommended in the case of an invalid result. CDC COVID-19 criteria for testing on human specimens and clinical management guidance information are available at the CDC Coronavirus Disease 2019 (COVID-19) webpage under Information for Healthcare Professionals (https://www.cdc.gov/coronavirus/2019-ncov/hcp/index.html). Additional information about this and other EUA tests can be found in provider and patient fact sheets at the following FDA website: https://www.fda.gov/medical-devices/njvzaefzcjf-ywlrrkv-3078-nyfxk-01-yojntmrhu- bev-suguljrgolenkd-wtaipui-devices/inibd-jvzwlvrktqm-jutx Human Metapneumovirus Not Detected Human Rhino/Enterovirus Not Detected Influenza A Not Detected Influenza B Not Detected Parainfluenza 1 Not Detected Parainfluenza 2 Not Detected Parainfluenza 3 Not Detected Parainfluenza 4 Not Detected Respiratory Syncytial Virus Not Detected Chlamydophila pneumoniae Not Detected Mycoplasma pneumoniae Not Detected Blood culture [[id number]] Collected: 03/16/24 1825 Lab Status: Preliminary result Specimen: Blood Updated: 03/19/24 230 Blood Culture No growth at 3 days. Blood culture [[id number]] Collected: 03/16/24 1743 Lab Status: Preliminary result Specimen: Blood Updated: 03/19/24 2301 Blood Culture No growth at 3 days. STUDIES: Results for orders placed or performed during the hospital encounter of 03/16/24 XR Chest One View (Exam End: 03/16/2024 5:59 PM) Result Value WORKSTATION ID [id number] Impression No evidence of pneumonia or other acute cardiopulmonary process. Thank you for letting us participate in the care of this patient. If you are a health care provider and have any questions regarding this report, please contact the number below. For patients who have questions please contact the health respiratory care assistant that requested your imaging first. Abdomen & Pelvis wo Contrast (Exam End: 03/18/2024 5:39 PM) Result Value WORKSTATION ID [id number] Impression 1. Unexpected finding concerning for retained foreign body or wire fragment within the right collecting system. 2. Increased number of nonobstructing right nephrolithiasis. 3. Increased conspicuity of right perinephric stranding. Pyelonephritis not excluded. Correlation to urinalysis recommended. 4. Nonobstructing dependent cholelithiasis. 5. Stable morphology of descending colostomy and oversewn long segment rectosigmoid stump that remains distended with fecal material. 6. Phlegmon versus soft tissue scarring at site of right ischial decubitus ulcer. Thank you for letting us participate in the care of this patient. If you are a health care provider and have any questions regarding this report, please contact the number below. For patients who have questions please contact the health respiratory care assistant that requested your imaging first. Medications: Scheduled Meds: cefaDROXiL 500 mg Oral BID LORazepam 1 mg Oral TID mirabegron ER 25 mg Oral Daily pregabalin 25 mg Oral TID senna 8.6 mg Oral BID tamsulosin 0.4 mg Oral Daily sodium chloride 0.9 % (flush) 5 mL Intravenous BID enoxaparin 40 mg Subcutaneous Nightly senna-docusate 2 tablet Oral BID baclofen 20 mg Oral TID acetaminophen 975 mg Oral Q8H divalproex ER 500 mg Oral BID pantoprazole EC 40 mg Oral Daily QUEtiapine 50 mg Oral Nightly Continuous Infusions: PRN Meds:.zolpidem, LORazepam, QUEtiapine, sodium chloride 0.9 % (flush), lidocaine, melatonin, acetaminophen, ondansetron ODT OR ondansetron * Cara Anthony RN - 03/19/2024 7:02 PM EDT OUTCOME EVALUATION NOTE: OUTCOME SUMMARY: Patient AOx4, VSS on RA. Denies nausea/vomiting, CP, SOB, and numbness/tingling. Pain controlled w/scheduled and PRN medications, see DEC. Dressing to sacrum CDI. Patient voiding to supra. LBM 03/19,minimal output via ostomy, mostly flatus. Patient refusing turns intermittently at this time. Patient resting in between care. PLAN MOVING FORWARD: Q2 Turns, Wound Care, Monitor I/Os, Monitor Labs, D/C Planning INDIVIDUALIZED FALL PREVENTION INTERVENTIONS: Patient is currently a HIGH risk to Fall. Patient educated on bed/chair alarm, demonstrates proper use of call marshall and verbalizes understanding of fall preventions implemented. Patient-specific fall risk factors per assessment: [current deficits]: Quad, IV Sites, Supra, Hospital Environment Assistance [level of assistance required for transfers and ambulation]: 2a + LIFT Supervision [direct monitoring required during toileting and ADLs]: Eyes on, Hands on, Lift Device Surveillance [continuous indirect monitoring]: Masimo, Bed Alarm, Purposeful Rounding, Nurse Knowledge Exchange Cara Anthony RN * Killian Luis MD - 03/19/2024 8:03 AM EDT Images from the original note were not included. Hospital Medicine Attending Daily Progress Note Admit Date: 03/16/2024 ( Hospital Day 2 days ) Active Hospital Problems Diagnosis Complicated UTI (urinary tract infection) Resolved Hospital Problems No resolved problems to display. ASSESSMENT/PLAN: Favio is a 58 y.o. male w/ history of quadriplegia s/p fall from roof 10/26/2020 with s/p C4-T2 spinal fusion for C6-7 bilateral facet dislocation, neurogenic bladder/bowel with chronic suprapubic catheter, colostomy, stage-4 left-sided ischial pressure ulcer followed by wound care, hx of chronic recurrent multifocal osteomyelitis, hx of recurrent UTIs with recent admission for pseudomonas bacteremia in October 2023, 03/19/2024: Patient stable, appears well clinically and is afebrile after de- escalation to cefazolinyesterday. CT A/P yesterday to evaluate stone burden unexpectedly showing possible retained foreignbody in his right collecting system. I spoke with Urology who feels it could also potentially be a calcified cast, but either way would represent a nidus for infection. They are recommending 2 weeks of abx followed by urgent ureteroscopy in outpatient setting (either at [facility] [place] with local urologist[place] Will de-escalate further to cefadroxil today and monitor overnight. He still needs his SPT replaced. # Concern for complicated UTI, early sepsis # Quadriplegia, neurogenic bladder with suprapubic catheter - s/p Zosyn and Vancomycin, -> Ancef 03/18 --> cefadroxil 03/19 - f/u blood culture - Urine culture as below - F/u CT A/P as stone w/u and ? Need for source control given fever last night - Will need catheter exchange prior to d/c after several days of IV antibiotics # Toxic metabolic encephalopathy: Resolved - due to infection as above, no other metabolic or toxic drivers on review of chart # Decubital ulcer Lt buttock, hx of chronic osteomyelitis - wound care consult appreciated, see note 03/18 # Home meds - divalproex ED 500 mg po daily - mirabegron ED 25 mg po daily - pregrabalin 25 mg po tid - tamsulosin 0.4 mg po daily - zolpidem 10 mg po hs prn - lorazepam 1 mg tid prn - Seroquel 25 mg po hs prn - Resumed his scheduled baclofen 20 mg TID now that confusion has resolved Diet Regular diet Discharge planning TBD pending transition to po antibiotics, likely 24-48 hours PT/OT/Speech Pt at reported functional baseline. Lines/Access PIV Beck catheter SPC DVT/GI Prophylaxis Lovenox Vital/lab/FS frequency Vitals Q6H while awake, Labs Qdaily Code status Do NOT Attempt CPR - Inpatient Family Nicki updated 03/18 in person PCP Genevieve Baez MD [phone] Attestation IPI Certification I certify that I am a D-H credentialed attending provider with admitting privileges and that the patient meets or has met medical necessity to require an inpatient IPI level of care meeting a minimumof two midnights or is on the [facility] inpatient only procedure list (status C) due to: complicated UTI Team (25/05 Coverage) 2800 Killian Luis MD 03/19/2024 Subjective/24hr events: - Pt seen and examined at bedside - Doing well, knows why he is admitted. - Tolerating diet. - Denies any complaints ROS: Patient denies fevers, chills, nausea/vomiting, diarrhea/constipation, sob/cp Vitals: Last value Range last 24 hrs Temperature Temp: 37.5 ??C (99.5 ??F) Temp: [37.1 ??C (98.8 ??F)-37.5 ??C (99.5 ??F)] Heart Rate Heart Rate: 74 Heart Rate: -- Blood Pressure BP: (!) 148/92 BP: (94-165)/(65-96) Respiratory Rate Resp: 19 Resp: [18-20] SpO2 SpO2: 95 % SpO2: [93 %-97 %] Intake/Output Summary (Last 24 hours) at 03/19/2024 0803 Last data filed at 03/19/2024 0348 Gross per 24 hour Intake 800 ml Output 1650 ml Net -850 ml EXAM GEN: Lying in bed comfortably, NAD, on RA, breathing comfortably, speaking in full sentences HEENT: Anicteric, no conjunctival pallor, EOMI CVS: regular rhythm, normal rate, S1+S2+no added sounds CHEST: CTABL, no added sounds ABD: Soft, ND/NT, BS+hang NEURO: AAO*3, at functional baseline, quadriplegic using R hand to interact with phone/ipad. EXT: trace pretibial edema b/l Lines/Tubes: ostomy, SPC and PIV LABS: Reviewed in eDH. Remarkable for the following: Recent Labs 03/19/2434403/18/24 0603/16/242023 WBC 4.5 5.1 8.8 HGB 10.3* 10.0* 10.2* HCT 31.8* 31.5* 31.4* PLATELET 133* 122* 117* Recent Labs 03/19/2434403/18/24 0603/16/24 1743 NA 144 143 138 K 3.5 3.4* 4.4 CL 107 107 103 CO2 27 25 25 BUN 14 13 22* CREATININE 0.52* 0.59* 0.64* GLUCOSE 86 82 107 CALCIUM 9.0 8.7 9.5 MAGNESIUM -- -- 0.78 No results for input(s): AST, ALT, ALKPHOS, BILITOT, BILIDIR in the last 72 hours. MICRO: Recent Labs 03/16/242117 URINECULTURE 10,000-49,000 cfu/ml Proteus mirabilis* Recent Labs 03/16/24 17403/16/24 1825 BLOODCX No growth at 2 days. No growth at 2 days. Microbiology Results (Last 30 days) Procedure Component Value Units Date/Time Urine culture [[id number]] (Abnormal) (Susceptibility) Collected: 03/16/242117 Lab Status: Final result Specimen: Indwelling Catheter Urine Updated: 03/18/24803 Urine Culture 10,000-49,000 cfu/ml Proteus mirabilis Susceptibility Proteus mirabilis VITEK 2 METHOD Amikacin Sensitive Ampicillin + Sulbactam Sensitive Aztreonam Sensitive Cefazolin Sensitive Cefepime Sensitive Ceftazidime Sensitive Ceftriaxone Sensitive Ertapenem Sensitive Gentamicin Sensitive Levofloxacin Resistant [1] Meropenem Sensitive Nitrofurantoin Resistant Piperacillin/Tazobactam Sensitive Tetracycline Resistant Tobramycin Sensitive Trimethoprim/Sulfa Resistant [1] Levofloxacin and Ciprofloxacin may not adequately treat infections in critically ill patients even when isolates test susceptible in the laboratory. Contact Infectious Disease before using in critically ill patients. Respiratory Panel PCR [[id number]] Collected: 03/16/24 1826 Lab Status: Final result Specimen: Nasopharyngeal Swab Updated: 03/16/242026 Resp Panel Source SIDE DOOR WORKER Swab Resp Panel PCR Negative Comment: Respiratory Panels are performed on the Innobits, using multiplexed PCR nucleic acid detection. Negative results do not preclude respiratory infection and should not be used as the sole basis for diagnosis, treatment or other management decisions. Adenovirus Not Detected Coronavirus HKU1 Not Detected Coronavirus NL63 Not Detected Coronavirus 229E Not Detected Coronavirus OC43 Not Detected SARS-CoV-2 Not Detected Comment: Testing for SARS-CoV-2 (Severe acute respiratory syndrome coronavirus 2) to aid in the diagnosis of COVID-19 is performed using the [place] Respiratory Panel 2.1 (Pond5) as authorized by the FDA issued Emergency Use Authorization (EUA). This panel also tests for multiple other viral and bacterial pathogens. This assay is intended for In-vitro Diagnostic (IVD) use with nasopharyngeal swabs in viral transport media. The assay is performed based on the instructions for use and additional guidance provided by the FDA. Testing is performed in laboratories within the [facility], each of which is certified under the Clinical Laboratory Improvement Amendments of 1988 (CLIA), 42 U.S.C. section 263a, to perform high-complexity tests. Assay performance has been verified according to clinical laboratory regulatory requirements. The test result for SARS-CoV-2 provided above should be interpreted in combination with the clinical observation, patient history and epidemiological information. For testing of asymptomatic individuals, assay performance characteristics and clinical utility have not been evaluated. A result of Not Detected indicates that the viral RNA target is not present but does not preclude SARS-CoV-2 infection. False negative results may occur if a specimen is improperly collected, transported or handled; if amplification inhibitors are present; or if inadequate numbers of viral particles are present in the specimen. When a diagnostic test is negative, the possibility of a false negative result should be considered in the context of a patient's recent exposures and the presence of clinical signs and symptoms consistent with COVID-19. A result of Detected suggests a current or recent infection. Positive and negative predictive values for this test are dependent on disease prevalence. A result of Invalid indicates the inability to conclusively determine the presence or absence of SARS-CoV-2 RNA in the sample which can be due to a variety of factors. Collection of a new sample for repeat testing is recommended in the case of an invalid result. CDC COVID-19 criteria for testing on human specimens and clinical management guidance information are available at the CDC Coronavirus Disease 2019 (COVID-19) webpage under Information for Healthcare Professionals (https://www.cdc.gov/coronavirus/2019-ncov/hcp/index.html). Additional information about this and other EUA tests can be found in provider and patient fact sheets at the following FDA website: https://www.fda.gov/medical-devices/vbwahfzsckl-vppiuwv-3643-qioel-84-xnifynomx- vcs-uvlxifothvnbkq-obwwlgu-devices/wcjow-uvqhtruwjht-zqjx Human Metapneumovirus Not Detected Human Rhino/Enterovirus Not Detected Influenza A Not Detected Influenza B Not Detected Parainfluenza 1 Not Detected Parainfluenza 2 Not Detected Parainfluenza 3 Not Detected Parainfluenza 4 Not Detected Respiratory Syncytial Virus Not Detected Chlamydophila pneumoniae Not Detected Mycoplasma pneumoniae Not Detected Blood culture [[id number]] Collected: 03/16/24 1825 Lab Status: Preliminary result Specimen: Blood Updated: 03/18/24 2302 Blood Culture No growth at 2 days. Blood culture [[id number]] Collected: 03/16/24 1743 Lab Status: Preliminary result Specimen: Blood Updated: 03/18/24 2302 Blood Culture No growth at 2 days. STUDIES: Results for orders placed or performed during the hospital encounter of 03/16/24 XR Chest One View (Exam End: 03/16/2024 5:59 PM) Result Value WORKSTATION ID [id number] Impression No evidence of pneumonia or other acute cardiopulmonary process. Thank you for letting us participate in the care of this patient. If you are a health care provider and have any questions regarding this report, please contact the number below. For patients who have questions please contact the health respiratory care assistant that requested your imaging first. Medications: Scheduled Meds: LORazepam 1 mg Oral TID ceFAZolin 1 g Intravenous Q8H mirabegron ER 25 mg Oral Daily pregabalin 25 mg Oral TID senna 8.6 mg Oral BID tamsulosin 0.4 mg Oral Daily sodium chloride 0.9 % (flush) 5 mL Intravenous BID enoxaparin 40 mg Subcutaneous Nightly senna-docusate 2 tablet Oral BID baclofen 20 mg Oral TID acetaminophen 975 mg Oral Q8H divalproex ER 500 mg Oral BID pantoprazole EC 40 mg Oral Daily QUEtiapine 50 mg Oral Nightly Continuous Infusions: PRN Meds:.zolpidem, LORazepam, QUEtiapine, sodium chloride 0.9 % (flush), lidocaine, melatonin, acetaminophen, ondansetron ODT OR ondansetron * Zena Arrieta RN - 03/18/2024 7:51 PM EDT OUTCOME EVALUATION NOTE: OUTCOME SUMMARY: Pt A&Ox4, VSS on RA. Quadriplegic, 1:1 feed with meals, assisted with ADLs. Pt anxious and tearful at times, verbal reassurance provided. Pt seen by diamond assorter. DO Gamboa request to exchange suprapubic cath, pt has 20Fr cath in place, unit only stocks 14Fr, 20Fr ordered from Stores, awaiting for correct size catheter to be delivered for suprapubic cath exchange. Pt off unit for CT. IV abx continued. Family at bedside visiting, supportive of patient. Call marshall within reach, bed alarm set. PLAN MOVING FORWARD: IV abx Pain control Mobilize D/c planning INDIVIDUALIZED FALL PREVENTION: Patient is currently a high risk to fall. Patient educated on bed/chair alarm, demonstrates proper use of call marshall and verbalizes understanding of fall preventions implemented. Patient-specific fall risk factors per assessment: [current deficits]: Quadriplegic, Pain, Medications, Hospital Environment. Assistance [level of assistance required for transfers and ambulation]: 2p assist with turns and repositioning Supervision [direct monitoring required during toileting and ADLs]: Eyes on per unit protocol when OOB/with ADL's Surveillance [continuous indirect monitoring]: Bed alarm, Masimo, Purposeful Rounding, Nurse Knowledge Exchange * Evgeny Gamboa, DO - 03/18/2024 6:04 PM EDT Images from the original note were not included. Hospital Medicine Attending Daily Progress Note Admit Date: 03/16/2024 ( Hospital Day 1 day ) Active Hospital Problems Diagnosis Complicated UTI (urinary tract infection) Resolved Hospital Problems No resolved problems to display. ASSESSMENT/PLAN: Favio is a 58 y.o. male w/ history of quadriplegia s/p fall from roof 10/26/2020 with s/p C4-T2 spinal fusion for C6-7 bilateral facet dislocation, neurogenic bladder/bowel with chronic suprapubic catheter, colostomy, stage-4 left-sided ischial pressure ulcer followed by wound care, hx of chronic recurrent multifocal osteomyelitis, hx of recurrent UTIs with recent admission for pseudomonas bacteremia in October 2023, Presented with fever, altered metal status. Febrile in the ED, otherwise HDS. UA with pyuria, concern for complicated UTI as culprit for presentation. On Zosyn monotherapy, prior sensitivities reviewed (see below) and has grown proteus remotely that was resistant. Proteus this go was more sensitiveand given return to cognitive baseline, down trending WBC count narrowed to Ancef but given fever last night and pending CT scan will hold on po transition for now. CT scan to r/o stone given stone forming organism and h/o nephrolithiasis. Will need SPC swap prior to d/c. Decubital ulcer in Lt buttock was packed with clean strip, no evidence of SSTI or osteo on wound care eval 03/18. Mild drainagefrom abdominal midline wound per WC eval so will need to keep tracking this. Family updated at bedside 03/18, anticipate MR for return to facility in 24-48 hours. # Concern for complicated UTI, early sepsis # Quadriplegia, neurogenic bladder with suprapubic catheter - s/p Zosyn and Vancomycin, -> Ancef 03/18 - f/u blood culture - Urine culture as below - F/u CT A/P as stone w/u and ? Need for source control given fever last night - Will need catheter exchange prior to d/c after several days of IV antibiotics # Toxic metabolic encephalopathy: Resolved - due to infection as above, no other metabolic or toxic drivers on review of chart # Decubital ulcer Lt buttock, hx of chronic osteomyelitis - wound care consult appreciated, see note 03/18 # Home meds - divalproex ED 500 mg po daily - mirabegron ED 25 mg po daily - pregrabalin 25 mg po tid - tamsulosin 0.4 mg po daily - zolpidem 10 mg po hs prn - lorazepam 1 mg tid prn - Seroquel 25 mg po hs prn - Resumed his scheduled baclofen 20 mg TID now that confusion has resolved Diet Regular diet Discharge planning TBD pending transition to po antibiotics, likely 24-48 hours PT/OT/Speech Pt at reported functional baseline. Lines/Access PIV Beck catheter SPC DVT/GI Prophylaxis Lovenox Vital/lab/FS frequency Vitals Q6H while awake, Labs Qdaily Code status Do NOT Attempt CPR - Inpatient Family Nicki updated 03/18 in person PCP Genevieve Baez MD [phone] Attestation IPI Certification I certify that I am a D-H credentialed attending provider with admitting privileges and that the patient meets or has met medical necessity to require an inpatient IPI level of care meeting a minimumof two midnights or is on the [facility] inpatient only procedure list (status C) due to: complicated UTI Team (25/05 Coverage) [id number] Evgeny Gamboa DO 03/18/2024 Subjective/24hr events: - Zosyn continued yesterday, family updated and medications rec'd per their assistance. - Pt seen and examined at bedside - Doing well, knows why he is admitted. - Tolerating diet. - Denies pain but does note increasing emotional lability and wondering if he is on his usual home medications. ROS: Patient denies fevers, chills, nausea/vomiting, diarrhea/constipation, sob/cp Vitals: Last value Range last 24 hrs Temperature Temp: 37.1 ??C (98.8 ??F) Temp: [37 ??C (98.6 ??F)-38 ??C (100.4 ??F)] Heart Rate Heart Rate: 74 Heart Rate: -- Blood Pressure BP: (!) 161/96 BP: (121-165)/(78-96) Respiratory Rate Resp: 20 Resp: [18-20] SpO2 SpO2: 97 % SpO2: [95 %-97 %] Intake/Output Summary (Last 24 hours) at 03/18/2024 1804 Last data filed at 03/18/2024 1727 Gross per 24 hour Intake 770 ml Output 2375 ml Net -1605 ml EXAM GEN: Lying in bed comfortably, NAD, on RA, breathing comfortably, speaking in full sentences HEENT: Anicteric, no conjunctival pallor, EOMI CVS: regular rhythm, normal rate, S1+S2+no added sounds CHEST: CTABL, no added sounds ABD: Soft, ND/NT, BS+hang NEURO: AAO*3, at functional baseline, quadriplegic using R hand to interact with phone/ipad. EXT: trace pretibial edema b/l Lines/Tubes: ostomy, SPC and PIV LABS: Reviewed in eDH. Remarkable for the following: Recent Labs 03/18/24 0603/16/242023 WBC 5.1 8.8 HGB 10.0* 10.2* HCT 31.5* 31.4* PLATELET 122* 117* Recent Labs 03/18/24 0603/16/24 1743 NA 143 138 K 3.4* 4.4 CL 107 103 CO2 25 25 BUN 13 22* CREATININE 0.59* 0.64* GLUCOSE 82 107 CALCIUM 8.7 9.5 MAGNESIUM -- 0.78 No results for input(s): AST, ALT, ALKPHOS, BILITOT, BILIDIR in the last 72 hours. MICRO: Recent Labs 03/16/242117 URINECULTURE 10,000-49,000 cfu/ml Proteus mirabilis* Recent Labs 03/16/24 1743 03/16/241824 BLOODCX No growth at 1 day. No growth at 1 day. Microbiology Results (Last 30 days) Procedure Component Value Units Date/Time Urine culture [[id number]] (Abnormal) (Susceptibility) Collected: 03/16/242117 Lab Status: Final result Specimen: Indwelling Catheter Urine Updated: 03/18/24803 Urine Culture 10,000-49,000 cfu/ml Proteus mirabilis Susceptibility Proteus mirabilis VITEK 2 METHOD Amikacin Sensitive Ampicillin + Sulbactam Sensitive Aztreonam Sensitive Cefazolin Sensitive Cefepime Sensitive Ceftazidime Sensitive Ceftriaxone Sensitive Ertapenem Sensitive Gentamicin Sensitive Levofloxacin Resistant [1] Meropenem Sensitive Nitrofurantoin Resistant Piperacillin/Tazobactam Sensitive Tetracycline Resistant Tobramycin Sensitive Trimethoprim/Sulfa Resistant [1] Levofloxacin and Ciprofloxacin may not adequately treat infections in critically ill patients even when isolates test susceptible in the laboratory. Contact Infectious Disease before using in critically ill patients. Respiratory Panel PCR [[id number]] Collected: 03/16/241825 Lab Status: Final result Specimen: Nasopharyngeal Swab Updated: 03/16/242026 Resp Panel Source SIDE DOOR WORKER Swab Resp Panel PCR Negative Comment: Respiratory Panels are performed on the Innobits, using multiplexed PCR nucleic acid detection. Negative results do not preclude respiratory infection and should not be used as the sole basis for diagnosis, treatment or other management decisions. Adenovirus Not Detected Coronavirus HKU1 Not Detected Coronavirus NL63 Not Detected Coronavirus 229E Not Detected Coronavirus OC43 Not Detected SARS-CoV-2 Not Detected Comment: Testing for SARS-CoV-2 (Severe acute respiratory syndrome coronavirus 2) to aid in the diagnosis of COVID-19 is performed using the [employer] Respiratory Panel 2.1 (Pond5) as authorized by the FDA issued Emergency Use Authorization (EUA). This panel also tests for multiple other viral and bacterial pathogens. This assay is intended for In-vitro Diagnostic (IVD) use with nasopharyngeal swabs in viral transport media. The assay is performed based on the instructions for use and additional guidance provided by the FDA. Testing is performed in laboratories within the [facility], each of which is certified under the Clinical Laboratory Improvement Amendments of 1988 (CLIA), 42 U.S.C. section 263a, to perform high-complexity tests. Assay performance has been verified according to clinical laboratory regulatory requirements. The test result for SARS-CoV-2 provided above should be interpreted in combination with the clinical observation, patient history and epidemiological information. For testing of asymptomatic individuals, assay performance characteristics and clinical utility have not been evaluated. A result of Not Detected indicates that the viral RNA target is not present but does not preclude SARS-CoV-2 infection. False negative results may occur if a specimen is improperly collected, transported or handled; if amplification inhibitors are present; or if inadequate numbers of viral particles are present in the specimen. When a diagnostic test is negative, the possibility of a false negative result should be considered in the context of a patient's recent exposures and the presence of clinical signs and symptoms consistent with COVID-19. A result of Detected suggests a current or recent infection. Positive and negative predictive values for this test are dependent on disease prevalence. A result of Invalid indicates the inability to conclusively determine the presence or absence of SARS-CoV-2 RNA in the sample which can be due to a variety of factors. Collection of a new sample for repeat testing is recommended in the case of an invalid result. CDC COVID-19 criteria for testing on human specimens and clinical management guidance information are available at the CDC Coronavirus Disease 2019 (COVID-19) webpage under Information for Healthcare Professionals (https://www.cdc.gov/coronavirus/2019-ncov/hcp/index.html). Additional information about this and other EUA tests can be found in provider and patient fact sheets at the following FDA website: https://www.fda.gov/medical-devices/mlftentxipr-dtdcgct-7591-ftcom-65-jtcvgrdvq- zhl-wgdwwpeydfovjb-zdiikgh-devices/gwihp-rfjyycdtkan-murk Human Metapneumovirus Not Detected Human Rhino/Enterovirus Not Detected Influenza A Not Detected Influenza B Not Detected Parainfluenza 1 Not Detected Parainfluenza 2 Not Detected Parainfluenza 3 Not Detected Parainfluenza 4 Not Detected Respiratory Syncytial Virus Not Detected Chlamydophila pneumoniae Not Detected Mycoplasma pneumoniae Not Detected Blood culture [[id number]] Collected: 03/16/24 1825 Lab Status: Preliminary result Specimen: Blood Updated: 03/17/24 230 Blood Culture No growth at 1 day. Blood culture [[id number]] Collected: 03/16/24 1743 Lab Status: Preliminary result Specimen: Blood Updated: 03/17/24 230 Blood Culture No growth at 1 day. STUDIES: Results for orders placed or performed during the hospital encounter of 03/16/24 XR Chest One View (Exam End: 03/16/2024 5:59 PM) Result Value WORKSTATION ID [id number] Impression No evidence of pneumonia or other acute cardiopulmonary process. Thank you for letting us participate in the care of this patient. If you are a health care provider and have any questions regarding this report, please contact the number below. For patients who have questions please contact the health respiratory care assistant that requested your imaging first. Medications: Scheduled Meds: LORazepam 1 mg Oral TID cefaDROXiL 500 mg Oral BID mirabegron ER 25 mg Oral Daily pregabalin 25 mg Oral TID senna 8.6 mg Oral BID tamsulosin 0.4 mg Oral Daily sodium chloride 0.9 % (flush) 5 mL Intravenous BID enoxaparin 40 mg Subcutaneous Nightly senna-docusate 2 tablet Oral BID baclofen 20 mg Oral TID acetaminophen 975 mg Oral Q8H divalproex ER 500 mg Oral BID pantoprazole EC 40 mg Oral Daily QUEtiapine 50 mg Oral Nightly Continuous Infusions: PRN Meds:.zolpidem, LORazepam, QUEtiapine, sodium chloride 0.9 % (flush), lidocaine, melatonin, acetaminophen, ondansetron ODT OR ondansetron * Hunter Du RN - 03/17/2024 4:42 PM EDT Images from the original note were not included. Called to Assess MD JEAN. Able to obtained blood returned and flushing well. * Meron Cardona RN - 03/17/2024 4:13 PM EDT Favio arrived to 437 via bed from ED. Report from SWETHA Bansal. [place] initiated, VSS. Belongings accounted for in admission tab. Avatar updated per current drains/devices. Patient declining to turn for skin assessment at this time, will attempt again later. Did request a shower while he is here, since at home he's only able to sponge bath. See flowsheets for assessment. Bed alarm on. 1800: patient asking for different bed. Slid to [facility] bed. Patient allowed for skin assessment after this. See flowsheets. Mepilexes in place to sacrum and L ischial PI. Agreeable to repositioning at this time, patient requested wedges so TAP system now in place however patient does not want upper body wedge, only wants lower wedge. Educated on importance of both wedges being used to eliminate the pressure on buttox and patient stated I'll take my chances. * Beckie Boone RN - 03/17/2024 3:30 PM EDT tool and die machinist consult note - Ostomy team consulted re: current ostomy, needs supplies. Pt is s/p end colostomy in January of 2021 at [facility] 12/04 to chronic constipation r/t quadriplegia stemming from an accident in October of 2020. We last saw pt in our clinic in June of 2022. I was able to touch base with pt's RN in the ED re: tubing over supplies. Was informed that pt was being transferred to [facility] shortly to room 437-A. I will plan to tube ostomy supplies over to that floor later today for pt's use during his inpt stay. Ostomy team will sign off at this time. CHRYSTAL Dukes, RN, CWOCN 03/17/2024 Enterostomal Therapy Team Pager #[phone] * Evgeny Gamboa, - 03/17/2024 8:27 AM EDT Images from the original note were not included. Hospital Medicine Attending Daily Progress Note Admit Date: 03/16/2024 ( Hospital Day 0 days ) Active Hospital Problems Diagnosis Complicated UTI (urinary tract infection) Resolved Hospital Problems No resolved problems to display. ASSESSMENT/PLAN: Favio is a 58 y.o. male w/ history of quadriplegia s/p fall from roof 10/26/2020 with s/p C4-T2 spinal fusion for C6-7 bilateral facet dislocation, neurogenic bladder/bowel with chronic suprapubic catheter, colostomy, stage-4 left-sided ischial pressure ulcer followed by wound care, hx of chronic recurrent multifocal osteomyelitis, hx of recurrent UTIs with recent admission for pseudomonas bacteremia in October 2023, Presented with fever, altered metal status. Febrile in the ED, otherwise HDS. UA with pyuria, concern for complicated UTI as culprit for presentation. On Zosyn monotherapy, prior sensitivities reviewed (see below) and has grown proteus remotely that was resistant. Given overall clinical improvementthus far will hold current therapy and monitor culture growth to further narrow. Decubital ulcer inLt buttock was packed with clean strip, no evidence of cellulitis, appreciate wound care consultation. Family updated on phone and sending along updated Rx list. # Concern for complicated UTI, early sepsis # Quadriplegia, neurogenic bladder with suprapubic catheter - s/p Zosyn and Vancomycin, will continue Zosyn - f/u blood and urine culture # Toxic metabolic encephalopathy: Resolved - due to infection as above # Decubital ulcer Lt buttock, hx of chronic osteomyelitis - wound care consult - could consider MRI to f/u on chronic osteomyelitis (CRP 191.7, normal sed rate) # Home meds - divalproex ED 500 mg po daily - mirabegron ED 25 mg po daily - pregrabalin 25 mg po tid - tamsulosin 0.4 mg po daily - zolpidem 10 mg po hs prn - lorazepam 1 mg tid prn - Seroquel 25 mg po hs prn - can resume his scheduled baclofen 20 mg TID now that confusion has resolved Diet Regular diet Discharge planning TBD pending transition to po antibiotics PT/OT/Speech Pt at reported functional baseline. Lines/Access PIV Beck catheter SPC DVT/GI Prophylaxis Lovenox Vital/lab/FS frequency Vitals Q6H while awake, Labs Qdaily Code status Do NOT Attempt CPR - Inpatient Family Caceres updated 03/17, sending updated med list to myself to review PCP Genevieve Baez MD [phone] Attestation IPI Certification I certify that I am a D-H credentialed attending provider with admitting privileges and that the patient meets or has met medical necessity to require an inpatient IPI level of care meeting a minimumof two midnights or is on the [facility] inpatient only procedure list (status C) due to: complicated UTI Team (25/05 Coverage) [id number] Evgeny Gamboa, DO 03/17/2024 Subjective/24hr events: - Admitted last night, Zosyn and vancomycin continued - Pt seen and examined at bedside - Doing well, knows why he is admitted and willing to stay for treatment as long as [place] on the - Tolerating diet. ROS: Patient denies fevers, chills, nausea/vomiting, diarrhea/constipation, sob/cp Vitals: Last value Range last 24 hrs Temperature Temp: 36.4 ??C (97.5 ??F) Temp: [36.4 ??C (97.5 ??F)-38.3 ??C (101 ??F)] Heart Rate Heart Rate: 77 Heart Rate: [68-87] Blood Pressure BP: 119/75 BP: (97-128)/(58-75) Respiratory Rate Resp: 18 Resp: [14-28] SpO2 SpO2: 97 % SpO2: [88 %-97 %] No intake or output data in the 24 hours ending 03/17/24 0827 EXAM GEN: Lying in bed comfortably, NAD, on RA, breathing comfortably, speaking in full sentences HEENT: Anicteric, no conjunctival pallor, EOMI CVS: regular rhythm, normal rate, S1+S2+no added sounds CHEST: CTABL, no added sounds ABD: Soft, ND/NT, BS+hang NEURO: AAO*3, no focal deficits. PSYCH: Normal mood and affect EXT: No edema, rigidity, tremors Lines/Tubes: PEG tube, SPC and PIV LABS: Reviewed in eDH. Remarkable for the following: Recent Labs 03/16/242023 WBC 8.8 HGB 10.2* HCT 31.4* PLATELET 117* Recent Labs 03/16/24 1743 NA 138 K 4.4 CL 103 CO2 25 BUN 22* CREATININE 0.64* GLUCOSE 107 CALCIUM 9.5 MAGNESIUM 0.78 No results for input(s): AST, ALT, ALKPHOS, BILITOT, BILIDIR in the last 72 hours. MICRO: No results for input(s): URINECULTURE in the last 720 hours. No results for input(s): BLOODCX in the last 720 hours. Microbiology Results (Last 30 days) Procedure Component Value Units Date/Time Respiratory Panel PCR [[id number]] Collected: 03/16/24 182 Lab Status: Final result Specimen: Nasopharyngeal Swab Updated: 03/16/242026 Resp Panel Source SIDE DOOR WORKER Swab Resp Panel PCR Negative Comment: Respiratory Panels are performed on the Innob[employer], using multiplexed PCR nucleic acid detection. Negative results do not preclude respiratory infection and should not be used as the sole basis for diagnosis, treatment or other management decisions. Adenovirus Not Detected Coronavirus HKU1 Not Detected Coronavirus NL63 Not Detected Coronavirus 229E Not Detected Coronavirus OC43 Not Detected SARS-CoV-2 Not Detected Comment: Testing for SARS-CoV-2 (Severe acute respiratory syndrome coronavirus 2) to aid in the diagnosis of COVID-19 is performed using the BioFire Respiratory Panel 2.1 (Pond5) as authorized by the FDA issued Emergency Use Authorization (EUA). This panel also tests for multiple other viral and bacterial pathogens. This assay is intended for In-vitro Diagnostic (IVD) use with nasopharyngeal swabs in viral transport media. The assay is performed based on the instructions for use and additional guidance provided by the FDA. Testing is performed in laboratories within the [facility], each of which is certified under the Clinical Laboratory Improvement Amendments of 1988 (CLIA), 42 U.S.C. section 263a, to perform high-complexity tests. Assay performance has been verified according to clinical laboratory regulatory requirements. The test result for SARS-CoV-2 provided above should be interpreted in combination with the clinical observation, patient history and epidemiological information. For testing of asymptomatic individuals, assay performance characteristics and clinical utility have not been evaluated. A result of Not Detected indicates that the viral RNA target is not present but does not preclude SARS-CoV-2 infection. False negative results may occur if a specimen is improperly collected, transported or handled; if amplification inhibitors are present; or if inadequate numbers of viral particles are present in the specimen. When a diagnostic test is negative, the possibility of a false negative result should be considered in the context of a patient's recent exposures and the presence of clinical signs and symptoms consistent with COVID-19. A result of Detected suggests a current or recent infection. Positive and negative predictive values for this test are dependent on disease prevalence. A result of Invalid indicates the inability to conclusively determine the presence or absence of SARS-CoV-2 RNA in the sample which can be due to a variety of factors. Collection of a new sample for repeat testing is recommended in the case of an invalid result. CDC COVID-19 criteria for testing on human specimens and clinical management guidance information are available at the CDC Coronavirus Disease 2019 (COVID-19) webpage under Information for Healthcare Professionals (https://www.cdc.gov/coronavirus/2019-ncov/hcp/index.html). Additional information about this and other EUA tests can be found in provider and patient fact sheets at the following FDA website: https://www.fda.gov/medical-devices/gwadsifillv-smebmin-1050-oheio-49-ezjwdugxy- zwm-ionqguqbqtcpoe-jrrkdwn-devices/ltlmh-tpzkthfywyd-tfzc Human Metapneumovirus Not Detected Human Rhino/Enterovirus Not Detected Influenza A Not Detected Influenza B Not Detected Parainfluenza 1 Not Detected Parainfluenza 2 Not Detected Parainfluenza 3 Not Detected Parainfluenza 4 Not Detected Respiratory Syncytial Virus Not Detected Chlamydophila pneumoniae Not Detected Mycoplasma pneumoniae Not Detected STUDIES: Results for orders placed or performed during the hospital encounter of 03/16/24 XR Chest One View (Exam End: 03/16/2024 5:59 PM) Result Value WORKSTATION ID [id number] Impression No evidence of pneumonia or other acute cardiopulmonary process. Thank you for letting us participate in the care of this patient. If you are a health care provider and have any questions regarding this report, please contact the number below. For patients who have questions please contact the health respiratory care assistant that requested your imaging first. Medications: Scheduled Meds: divalproex ER 500 mg Oral Daily mirabegron ER 25 mg Oral Daily pregabalin 25 mg Oral TID senna 8.6 mg Oral BID tamsulosin 0.4 mg Oral Daily sodium chloride 0.9 % (flush) 5 mL Intravenous BID enoxaparin 40 mg Subcutaneous Nightly senna-docusate 2 tablet Oral BID piperacillin-tazobactam 3.375 g Intravenous Q8H vancomycin 1.25 g Intravenous Q12H acetaminophen 1,000 mg Intravenous Q8H ALDEN Continuous Infusions: PRN Meds:.zolpidem, LORazepam, QUEtiapine, sodium chloride 0.9 % (flush), lidocaine, melatonin, acetaminophen, ondansetron ODT OR ondansetron, vancomycin documented in this encounter H&P Notes * Edwina Barclay MD - 03/16/2024 10:45 PM EDT Inpatient Hospital Medicine - Admission Note Problem List: There are no hospital problems to display for this patient. Active Non-Hospital Problems Diagnosis Septic shock Pressure injury of left ischium, stage 4 Impaired mobility Pressure injury of left buttock, stage 4 Chronic recurrent multifocal osteomyelitis History of caloric malnutrition Neurogenic bladder Pressure injury of buttock, stage 4 Quadriplegia S/P colostomy S/P C4-T2 PSIF for C6-7 bilateral facet dislocation 10/27/20 Dr. Tong Cervical spine fracture Superficial skin infection ID: 58 y.o. Male [place] [facility] [place] Hx obtained from chart review, ED notes, pt's daughter (Luz Velasquez) via phone. History of Present Illness: HPI The patient is a 58 y.o. male w/ history of quadriplegia s/p fall from roof 10/26/2020 with s/p C4-T2 spinal fusion for C6-7 bilateral facet dislocation, neurogenic bladder/bowel with suprapubic tubeand cystostomy, colostomy, stage-4 left-sided ischial pressure ulcer followed by wound care, hx of chronic recurrent multifocal osteomyelitis. He has recent admission during 10/25/2023- 11/10/2023 for pseudomonas bacteremia/ sepsis from complicated UTI (Ucx grew multiple organisms)/ UPJ obstruction (s/p Rt ureteral stent and bladder stones removed) and hypoxic respiratory failure 2/2 aspiration pneumonia/ mucus plug s/p bronchoscopy. Per his daughter, the patient was admitted at [facility] for pneumonia couple months ago, was also treated for URI, sepsis. He has UTIs multiple times and has been on abx for chronic osteomyelitis. Per meddispense hx, he was placed on multiple antibiotics since December. Recently, was treated for UTI with bactrim. He has 2 real time operator caregivers and home health nurse visiting 3 times a week, caring for his wound and suprapubic catheter. Unclear when his suprapubic catheter has last changed. His decubital ulcer in Lt buttock seems to be healing. His baseline is oriented x 3, conversant. Earlier today his visiting nurse noted he had temperature of 102.8 F. He reports he had some shortness of breath and cough off and on. Denies chest pain, nausea, vomiting, abdominal pain, diarrhea. ED course - HDS, febrile to 101 F. Awake, required repeated prompting to answer questions which is not at his baseline, per his daughter he has changed mental status quite often when he has infection. His decubital ulcer in Lt buttock was with clean packing strip, no surrounding erythema or active drainage. UA with wbc > 100, negative nitrite. Normal Cr, no leukocytosis, VBG showed no CO2 retention. Lactate 1.0 The patient was given zosyn and vancomycin, IVF bolus 2500 cc. Patient Vitals for the past 24 hrs: Temp Pulse Resp BP SpO2 O2 Device 03/16/24 1720 (!) 38.3 ??C (101 ??F) 87 14 101/64 96 % RA 03/16/24 1745 -- 83 -- 106/64 -- -- 03/16/24 1815 -- 83 19 125/71 -- -- 03/16/24 1900 -- 85 25 116/70 93 % -- 03/16/24 1930 -- 82 28 100/59 (!) 88 % -- 03/16/241999 -- 83 25 122/72 94 % -- 03/16/242029 -- 77 26 119/68 93 % -- 03/16/242044 -- 78 28 116/67 93 % -- 03/16/24 2100 36.9 ??C (98.5 ??F) -- -- -- -- -- 03/16/242129 -- 71 14 101/59 94 % -- Review of Systems: Review of Systems Constitutional: Positive for fever. Respiratory: Positive for cough and shortness of breath. Cardiovascular: Negative for chest pain. Gastrointestinal: Negative for abdominal pain, constipation, diarrhea, nausea and vomiting. Musculoskeletal: Positive for gait problem. Skin: Positive for wound (pressure ulcer in lt buttock). Psychiatric/Behavioral: Positive for confusion. Past Medical and Surgical History: No past medical history on file. Past Surgical History: Procedure Laterality Date PRO ALLOGRAFT FOR SPINE SURGERY ONLY MORSELIZED N/A 10/27/2020 ALLOGRAFT FOR SPINE SURGERY ONLY; MORSELIZED (WRVU *) performed by Robbin Tong MD at [facility] PRO APPLY/REMOVE CRANIAL FIX DEV N/A 10/27/2020 PLACEMENT-CRANIAL TONGS (INCLUDING REMOVAL) (WRVU 4) performed by Robbin Tong MD at [facility] PRO ARTHRODESIS POSTERIOR/PSTLAT TECH 1 INTERSPACE LUMBAR, EA ADD'L INTERSPACE N/A 10/27/2020 ARTHRODESIS, POSTERIOR VERTEBRAL EA.ADD. SEGMENT (WRVU 6.43) performed by Robbin oTng MD at [facility] OR PRO ARTHRODESIS, POST/POSTEROLAT TQ, SNGLE INTERSPACE; CERVICAL BELOW C2 SEGMNT Midline 10/27/2020 @ARTHRODESIS, POSTERIOR CERVICAL SPINE (WRVU 17.4) performed by Robbin Tong MD at [facility] OR PRO AUTOGRAFT SPINE SURGERY LOCAL FROM SAME INCISION N/A 10/27/2020 AUTOGRAFT FOR SPINE SURGERY ONLY, SAME INCISION (WRVU *) performed by Robbin Tong MD at [facility] OR PRO CHANGE OF BLADDER TUBE, SIMPLE N/A 10/25/2023 CYSTOSTOMY TUBE, CHANGE (WRVU 0.9) performed by Alfonso Brian MD at [facility] OR PRO CYSTOSCOPY, INSERT URETERAL STENT Right 10/25/2023 CYSTO, STENT PLACEMENT (WRVU 2.82) performed by Alfonso Brian MD at [facility] OR PRO CYSTOSCOPY, REMV CALCULUS, SIMPLE N/A 10/25/2023 CYSTO, REMOVAL OF STENT, FOREIGN BODY OR CALCULUS, SIMPLE (WRVU 2.81) performed by Alfonso Brian MD at [facility] OR PRO OPEN POST TREAT CERV VERT FX, 1 LVL N/A 10/27/2020 @OPEN TREATMENT &/OR REDUCTION VERTEBRAL FX., CERVICAL (WRVU 20.84) performed by Rosa Tong MD at [facility] OR PRO PLACE PERCUT GASTROSTOMY TUBE N/A 11/05/2020 ENDOSCOPY W DIRECTED PLACEMENT PERCUTANEOUS GASTROSTOMY TUBE-PEG (WRVU 3.66) performed by Yoel Medellin MD at [facility] OR PRO POSTERIOR SEGMENTAL INSTRUMENTATION 3-6 VRT SEG N/A 10/27/2020 POST SPINAL INSTRUMENTATION, 3-6 VERTEBRA, NON SEGMENTAL (WRVU 12.56) performed by Robbin Tong MD at [facility] OR Prior To Admission Medications: (Not in a hospital admission) No current facility-administered medications on file prior to encounter. Current Outpatient Medications on File Prior to Encounter Medication Sig Dispense Refill baclofen (Lioresal) 20 mg tablet Take 1 tablet by mouth 3 times daily. divalproex ER (Depakote ER) 500 mg ER 24 hr tablet Take 1 tablet by mouth daily. mirabegron ER (Myrbetriq) 25 mg ER 24 hr tablet Take 1 tablet by mouth daily. pregabalin (Lyrica) 25 mg capsule Take 1 capsule by mouth 3 times daily. tamsulosin (Flomax) 0.4 mg capsule Take 1 capsule by mouth daily. 90 tablet 3 diclofenac (Voltaren) 1 % Gel Apply topically 4 times daily as needed. 100 g 3 ketoconazole (Nizoral) 2 % Cream Apply topically daily. 30 g 0 LORazepam (Ativan) 1 mg tablet Take 1 tablet by mouth 3 times daily as needed for Anxiety. 90 tablet 0 naloxone (Narcan) 1 mg/mL Syringe For opioid overdose,spray 1 mL in each nostril. Repeat after 3-5 minutes if no or minimal response. Call 911 before administration. 4 mL 0 QUEtiapine (SEROquel) 25 mg tablet Take 1 tablet by mouth nightly as needed. 30 tablet 0 senna (Senokot) 8.6 mg tablet Take 1 tablet by mouth 2 times daily. 60 tablet 0 zolpidem (Ambien) 10 mg tablet Take 1 tablet by mouth nightly as needed for Sleep. 30 tablet 0 lactulose (Chronulac) 10 gram/15 mL Solution Take 30 mLs by mouth Daily. melatonin 10 mg Tablet Take 10 mg by mouth Daily. mirtazapine (REMERON) 45 mg Tablet Take 45 mg by mouth Daily. apixaban (Eliquis) 5 mg Tablet Take 5 mg by mouth Twice daily. busPIRone (Buspar) 10 mg Tablet TAKE TWO TABLETS BY MOUTH THREE TIMES A DAY senna (Senokot) 8.6 mg Tablet Take 2 tablets by mouth Twice daily. docusate sodium (Colace) 100 mg Capsule Take 100 mg by mouth Twice daily. phenyleph-min oil-petrolatum 0.25-14-74.9 % Ointment Place 1 Application rectally Every 6 hours as needed. diclofenac (VOLTAREN) 1 % Gel Apply 4 g topically 4 times daily as needed. acetaminophen (Tylenol) 500 mg Tablet Take 1,000 mg by mouth Every 8 hours as needed. albuteroL 90 mcg/actuation HFA Aerosol Inhaler Inhale 2 puffs into the lungs Every 4 hours as needed. midodrine (Proamatine) 2.5 mg Tablet Take 2.5 mg by mouth 3 times daily. L. acidophilus/L.bulgaricus (FLORANEX ORAL) Take 1 tablet by mouth 3 times daily. doxycycline (VIBRA-TABS) 100 mg Tablet Take 1 tablet by mouth 2 times daily. (Patient not taking: Reported on 08/04/2022) 14 tablet 0 Allergies: Allergies Allergen Reactions Hydromorphone Other (See Comments) Daughter states makes him irritable and has hallucinations Family History: No family history on file. Social History and Habits: Social History Socioeconomic History Marital status: Single Spouse name: Not on file Number of children: Not on file Years of education: Not on file Highest education level: Not on file Occupational History Not on file Tobacco Use Smoking status: Never Smokeless tobacco: Never Vaping Use Vaping Use: Never used Substance and Sexual Activity Alcohol use: Never Drug use: Never Frequency: 21.0 times per week Types: Marijuana Sexual activity: Not Currently Other Topics Concern Do You live alone? Yes Tobacco in Home No Social History Narrative Merged History Encounter Social Determinants of Health Financial Resource Strain: Not on file Food Insecurity: No Food Insecurity (10/27/2023) Hunger Vital Sign Worried About Running Out of Food in the Last Year: Never true Ran Out of Food in the Last Year: Never true Transportation Needs: No Transportation Needs (10/27/2023) PRAPARE - Transportation Lack of Transportation (Medical): No Lack of Transportation (Non-Medical): No Physical Activity: Not on file Intimate Partner Violence: Not At Risk (03/16/2024) DH IPV Inpatient Questions Prevent Contact with Others: no Feels Threatened by Someone: no Feels Unsafe at Home: no Physical Signs of Abuse Present: no Housing Stability: Low Risk (10/27/2023) Housing Stability Vital Sign Unable to Pay for Housing in the Last Year: No Number of Places Lived in the Last Year: 2 Unstable Housing in the Last Year: No Immunizations: There is no immunization history on file for this patient. Physical Exam: Last Set of Vitals and range of vitals over past 24 hours: Last value Range last 24 hrs Temperature Temp: 36.9 ??C (98.5 ??F) Temp: [36.9 ??C (98.5 ??F)-38.3 ??C (101 ??F)] Heart Rate Heart Rate: 71 Heart Rate: [71-87] Blood Pressure BP: 101/59 BP: (100-125)/(59-72) Respiratory Rate Resp: 14 Resp: [14-28] SpO2 SpO2: 94 % SpO2: [88 %-96 %] Body mass index is 24.27 kg/m??. Physical Exam Constitutional: Appearance: He is ill-appearing. He is not toxic-appearing. HENT: Mouth/Throat: Mouth: Mucous membranes are dry. Eyes: Extraocular Movements: Extraocular movements intact. Cardiovascular: Rate and Rhythm: Normal rate and regular rhythm. Pulses: Normal pulses. Heart sounds: No murmur heard. Pulmonary: Effort: Pulmonary effort is normal. No respiratory distress. Breath sounds: No wheezing, rhonchi or rales. Abdominal: General: Abdomen is flat. There is no distension. Palpations: Abdomen is soft. Tenderness: There is no abdominal tenderness. There is no guarding or rebound. Comments: Colostomy bag in place Genitourinary: Comments: Suprapubic catheter in place Musculoskeletal: Cervical back: No rigidity. Right lower leg: No edema. Left lower leg: No edema. Skin: General: Skin is warm and dry. Capillary Refill: Capillary refill takes less than 2 seconds. Coloration: Skin is not jaundiced or pale. Neurological: Mental Status: He is disoriented. Cranial Nerves: No cranial nerve deficit. Comments: Oriented to place (hospital). Able to follow basic commands, moves both arm equally (gr4-5/5). Laboratory (Last 24 Hours): Recent Results (from the past 24 hour(s)) Basic Metabolic Panel (non-fasting) Result Value Ref Range Glucose Lvl 107 65 - 199 mg/dL BUN 22 (H) 10 - 20 mg/dL Creatinine 0.64 (L) 0.80 - 1.50 mg/dL Sodium 138 135 - 145 mmol/L Potassium 4.4 3.5 - 5.0 mmol/L Chloride 103 98 - 107 mmol/L CO2 25 22 - 31 mmol/L Anion Gap 10 5 - 15 mmol/L Calcium 9.5 8.5 - 10.5 mg/dL Estimated GFR 111 >=60 mL/min/1.73 m?? Magnesium Result Value Ref Range Magnesium 0.78 0.69 - 1.07 mmol/L Prothrombin Time Result Value Ref Range PT 13.6 (H) 9.4 - 12.5 sec INR 1.2 APTT Result Value Ref Range PTT 30 25 - 37 sec CRP, acute inflammation Result Value Ref Range CRP 191.7 (H) <=4.9 mg/L Respiratory Panel PCR Specimen: Nasopharyngeal Swab Result Value Ref Range Resp Panel Source SIDE DOOR WORKER Swab Resp Panel PCR Negative Negative Adenovirus Not Detected Not Detected Coronavirus HKU1 Not Detected Not Detected Coronavirus NL63 Not Detected Not Detected Coronavirus 229E Not Detected Not Detected Coronavirus OC43 Not Detected Not Detected SARS-CoV-2 Not Detected Not Detected Human Metapneumovirus Not Detected Not Detected Human Rhino/Enterovirus Not Detected Not Detected Influenza A Not Detected Not Detected Influenza B Not Detected Not Detected Parainfluenza 1 Not Detected Not Detected Parainfluenza 2 Not Detected Not Detected Parainfluenza 3 Not Detected Not Detected Parainfluenza 4 Not Detected Not Detected Respiratory Syncytial Virus Not Detected Not Detected Chlamydophila pneumoniae Not Detected Not Detected Mycoplasma pneumoniae Not Detected Not Detected BLOOD GAS 2 VENOUS Result Value Ref Range pH Drake 7.40 7.32 - 7.42 pCO2 Drake 41 41 - 51 mmHg pO2 Drake 38 25 - 40 mmHg HCO3 Drake 25.2 mmol/L BE Drake 0.5 mmol/L Hgb Blood Gas 11.1 (L) 13.7 - 16.5 g/dL O2HB Drake 70.8 % COHB Drake 1.0 % METHB Drake 0.7 <=1.5 % Na Whole Blood 138 135 - 145 mmol/L K Whole Blood 3.8 3.5 - 5.0 mmol/L ICa Whole Blood 1.18 1.15 - 1.33 mmol/L CL Whole Blood 104 98 - 107 mmol/L Gluc Whole Bld 97 65 - 199 mg/dL Lactate WB 1.0 0.5 - 2.2 mmol/L BGas Source Venous Hemogram Result Value Ref Range WBC 8.8 4.0 - 9.5 x10(3)/mcL RBC 3.56 (L) 4.58 - 5.54 x10(6)/mcL Hemoglobin 10.2 (L) 13.7 - 16.5 g/dL Hematocrit 31.4 (L) 40.5 - 48.5 % MCV 88.2 82.9 - 93.1 fL MCH 28.7 27.5 - 32.1 pg MCHC 32.5 32.0 - 35.7 g/dL Platelets 117 (L) 145 - 357 x10(3)/mcL RDWSD 51.6 (H) 36.0 - 45.0 fL RDWCV 15.9 (H) 11.4 - 13.8 % MPV 11.4 7.6 - 12.9 fL nRBC % Auto 0.0 % nRBC Abs Auto 0.000 0.000 - 0.000 x10(3)/mcL Differential, Automated Result Value Ref Range Neutrophils % 72.0 % Neutr Abs (ANC) 6.31 (H) 1.70 - 6.10 x10(3)/mcL Lymphocytes % 17.4 % Lymphocytes Abs 1.5 0.9 - 3.2 x10(3)/mcL Monocytes % 9.7 % Monocyte Abs 0.8 0.3 - 0.9 x10(3)/mcL Eosinophils % 0.2 % Eosinophils Abs 0.0 0.0 - 0.4 x10(3)/mcL Basophils % 0.2 % Basophils Abs 0.0 0.0 - 0.1 x10(3)/mcL Immature Gran % 0.50 % Viry Gran Abs 0.04 0.00 - 0.04 x10(3)/mcL Sedimentation rate Result Value Ref Range Sed Rate 35 2 - 37 mm/hr Urinalysis with reflex Culture Specimen: Indwelling Catheter Urine Result Value Ref Range Glucose UA Negative Negative mg/dL Protein UA Negative Negative mg/dL Bilirubin UA Negative Negative mg/dL Urobilinogen UA Normal Normal mg/dL pH UA 6.5 5.0 - 8.0 Blood UA Small (A) Negative mg/dL Ketones UA Negative Negative mg/dL Nitrite UA Negative Negative Leukocytes UA Large (A) Negative mcL Appearance UA Cloudy (A) Clear Spec [place] UA 1.006 1.005 - 1.030 Color UA Yellow Yellow Culture Reflexed Yes Urinalysis Microscopic Exam Result Value Ref Range RBC UA 1 0 - 3 /HPF WBC UA >100 (H) 0 - 3 /HPF WBCs Clumping Occasional (A) None /HPF Bacteria UA Few (A) None /HPF Squam Epith UA 2 <=4 /HPF Microbiology: Blood Cultures: taken Urine Cultures: taken Radiology: CXR - IMPRESSION No evidence of pneumonia or other acute cardiopulmonary process. Other Studies: EKG - rate 83, QTC 415 Normal sinus rhythm Incomplete right bundle branch block Borderline ECG When compared with ECG of 06-NOV-2020 13:04, Incomplete right bundle branch block is now Present Echocardiogram - EF 66% 10/2023 Assessment: The patient is a 58 y.o. male w/ history of quadriplegia s/p fall from roof 10/26/2020 with s/p C4-T2 spinal fusion for C6-7 bilateral facet dislocation, neurogenic bladder/bowel with chronic suprapubic catheter, colostomy, stage-4 left-sided ischial pressure ulcer followed by wound care, hx of chronic recurrent multifocal osteomyelitis, hx of frequent UTI with pseudomonas bacteremia in October,Urine culture grew polymicrobial. Presented with fever, altered metal status. Febrile in the ED, otherwise HDS. UA with wbc > 100, concern for complicated UTI. Pt received vanco and zosyn. Will continue zosyn for now. Decubital ulcer in Lt buttock was packed with clean strip, no evidence of cellulitis. Obtain wound care consult. If urine culture does not show evidence or infection could consider MRI to investigate further on his osteomyelitis given markedly elevated crp. # Concern for complicated UTI, early sepsis # Quadriplegia, neurogenic bladder with suprapubic catheter - s/p Zosyn and Vancomycin, will continue Zosyn for now - f/u blood and urine culture # Toxic metabolic encephalopathy - due to infection as above - reevaluated this morning 0600, mentation appears back to his baseline and he has capacity. He wanted to be discharged home this morning as he did not want to miss his important appointment on 03/21 in [place] (related to procedure for his arms), but agreed to discuss with his daughter. # Decubital ulcer Lt buttock, hx of chronic osteomyelitis - wound care consult - could consider MRI to f/u on chronic osteomyelitis (CRP 191.7, normal sed rate) # Home meds - divalproex ED 500 mg po daily - mirabegron ED 25 mg po daily - pregrabalin 25 mg po tid - tamsulosin 0.4 mg po daily - zolpidem 10 mg po hs prn - lorazepam 1 mg tid prn - Seroquel 25 mg po hs prn - hold his scheduled baclofen and divalproex for now due to decreased mentation Plan: Admit to Hospital Medicine Physical Therapy referral DVT Prophylaxis - Lovenox If currently a smoker - advised about smoking cessation and will provide smoking cessation materialand support. Pneumovax and Influenza Immunizations given as needed. Discussed Advanced Directives and Code Status. The patient wishesto be DNR/DNI. Pre arrest - ok with short term intubation. This has been confirmed with the patient and his daughter (Luz Velasquez). A copy of this document will be sent to the patient's Primary Care Physician and/or Referring Physician. Edwina Barclay MD 03/16/2024 documented in this encounter ED Notes * Nimisha De La O RN - 03/17/2024 9:48 AM EDT Patient does not know what medications he takes. Some medications awaiting verification due to dosage questions. Pharmacy will be doing medication reconciliation and contacting caregivers. * Nimisha De La O RN - 03/17/2024 7:57 AM EDT Patient states that he is changing his mind about staying. He is willing to be admitted, however heis concerned about making an appointment to see a neurosurgeon in [place] on 03/22. Will notify care team. * Denae Bonlila RN - 03/17/2024 6:06 AM EDT Pt requesting to speak with provider, admitting provider at bedside. * Neelam Stewart RN - 03/17/2024 6:06 AM EDT Provided patient with a bedside table, helped him set up his phone and tablet, and brought him [place] and a warm blanket. * Denae Bonilla RN - 03/17/2024 5:27 AM EDT Pt requesting to leave AMA at this time stating he feels better and does not want to be admitted. Admitting team aware. * Denae Bonilla RN - 03/17/2024 4:39 AM EDT Pt yelling out. RN in to see pt. Pt requesting an update. Pt notified he is admitted to the hospital. Pt stating I will not be admitted. I am going home. Pt requesting to speak with a doctor. Admitting team paged. * Marlys Bolivar RN - 03/16/2024 9:38 PM EDT Transferred pt from stretcher to hospital bed for comfort. Mepilex in place on coccyx for blanchable redness. Off loading pillow placed, pt turned to the left side. Home heel padded boots in place. Catheter emptied for 1200cc of yellow urine. VSS, VAD, respirations even and unlabored. Bed locked in lowest position, side rails raised x2, call marshall in reach. * Marlys Bolivar RN - 03/16/2024 8:18 PM EDT Update given to iNcki Gonzalez. Per Nicki pt is not as usually drowsy, pt frequently gets pneumonia and UTI's. * Shirley Servin MD - 03/16/2024 5:13 PM EDT ED Resident Note HPI: Bruce Velasquez Jr. is a 58 y.o. male with history of quadriplegia and recurrent UTI with chronic indwelling suprapubic catheter who presents to the Emergency Department for evaluation of fevers. Patient has a visiting nurse who noted today that the patient had an axillary temperature of 102.8 F at home. Patient endorses some general malaise and a recent cough, but denies any complaints of pain orany other recent illness. He was recently treated with a course of Bactrim for his recurrent UTI, last dose was yesterday; he is unsure if he has had any urinary changes since the antibiotics were completed. Per report given by nurse to EMS, patient has unstageable ulcer to the left buttock. Per chart review, patient has a history of multifocal osteomyelitis. There are no other complaints at thistime. ROS as per HPI Vitals: ED Triage Vitals BP: n/a Pulse: n/a Resp: n/a Temp: n/a Temp src: n/a SpO2: n/a O2 Device: n/a O2 Flow Rate (L/min): n/a Physical Exam Vitals and nursing note reviewed. Constitutional: Appearance: He is ill-appearing. HENT: Head: Normocephalic and atraumatic. Cardiovascular: Rate and Rhythm: Normal rate and regular rhythm. Pulses: Normal pulses. Pulmonary: Effort: Pulmonary effort is normal. No respiratory distress. Breath sounds: Normal breath sounds. No wheezing, rhonchi or rales. Abdominal: General: There is no distension. Palpations: Abdomen is soft. Tenderness: There is no abdominal tenderness. Comments: Suprapubic catheter. Colostomy with small amount of stool in bag. Skin: Comments: Pressure ulcer to left buttock with clean packing strip in place, no surrounding erythema, no active drainage. Neurological: GCS: GCS eye subscore is 3. GCS verbal subscore is 4. GCS motor subscore is 6. Comments: Awake, laying with eyes closed. Requires repeated prompting to answer questions. Answers questions appropriately, but answers date incorrectly, knows he is in the hospital but unsure which one. Baseline quadriplegia with upper and lower extremity contractures, some willful movement of bilateral upper extremities. ED Course: I have reviewed labs and imaging, images and available reports, and they are significant for: ED Course as of 03/17/24 1515 ThuMarch 16, 2024 1823 XR Chest One View IMPRESSION No evidence of pneumonia or other acute cardiopulmonary process. 2123 WBC: 8.8 2123 Hemoglobin(!): 10.2 2123 Platelets(!): 117 2150 CRP(!): 191.7 2212 Leukocytes UA(!): Large 2212 WBC UA(!): >100 2212 WBCs Clumping(!): Occasional 2212 Bacteria UA(!): Few Kathy March 17, 2024 1515 KF to AB: quadriplegia, UTI, admitted to medicine XR Chest One View Final Result No evidence of pneumonia or other acute cardiopulmonary process. Thank you for letting us participate in the care of this patient. If you are a health care provider and have any questions regarding this report, please contact the number below. For patients who have questions please contact the health respiratory care assistant that requested your imaging first. Fluid bolus for Sepsis; Patient BMI is 24.3 kg/m2, (less than or equal to 30 kg/m2) so dosing based on ACTUAL body weight. Current Body Weight of 85.73 kg x 30 mL/kg/dose = 2,572 mL, rounded to 2,500 mL for target resuscitation volume. IV Fluid Orders Start Dose/Rate Route Frequency Stop 03/16/24 1758 sodium chloride 0.9% infusion (BMI & [place] BW Available for Patient) See Hyperspace for full Linked Orders Report. 500 mL over 15 Minutes Intravenous ONCE 03/16/24 1856 03/16/24 1743 sodium chloride 0.9% infusion (BMI & [place] BW Available for Patient) See Hyperspace for full Linked Orders Report. 1,000 mL over 15 Minutes Intravenous ONCE 03/16/24 1840 03/16/24 1728 sodium chloride 0.9% infusion (BMI & [place] BW Available for Patient) See Hyperspace for full Linked Orders Report. 1,000 mL over 15 Minutes Intravenous ONCE 03/16/24 1803 Procedures Assessment and Plan: 58 y.o. male with hx quadriplegia and osteomyelitis, recurrent UTI with suprapubic catheter in place presenting from home for malaise, fevers to 102.8 F axillary, cough. On arrival, patient is febrile but with otherwise normal vital signs. Lungs clear, abdomen non-tender. Left buttock ulcer packed without active drainage or surrounding erythema. Somnolent, not at baseline per caregiver report. Given overall presentation and concern for infection, covered for sepsis w fluids, vanc/Zosyn, cultures pending. UA c/w UTI. CXR is negative for pneumonia. Has chronic sacral wound, packed, no active drainage or erythema in ED. Given history of osteomyelitis could consider MRI of pelvis in am. Patientto be admitted to hospital medicine for sepsis due to UTI, caregiver aware of plan and agreeable. The visit findings, diagnosis, and care plan were discussed with the patient. Shirley Servin MD Resident 03/16/24 2213 Associated attestation - Dedra Ibarra MD - 03/17/2024 2:25 PM EDT ED ATTENDING ATTESTATION NOTE The patient was seen in conjunction with the resident physician. I have independently performed thekey portions of the history and physical exam. I have reviewed the diagnostic studies including labs, imaging studies and EKGs. I have discussed the details of the case with the resident and agree with the assessment and plan as described in the resident note unless noted below or in my separate note. documented in this encounter Miscellaneous Notes * Care Management Discharge - Danielle Jaime RN - 03/21/2024 10:45 AM EDT CARE MANAGEMENT FINAL DISCHARGE NOTE Chart reviewed, care reviewed with primary team and at interdisciplinary rounds. Patient is medically ready for discharge to home with resumption of services with [facility]. Needs for Transition of Care: Plan for discharge is: Home w/ Services Outpatient Agency/Support Group Needs: Homecare agency Home Health Services: Registered Nurse, Home Health Aide, Physical Therapy, Occupational Therapy Agency Referrals & Follow-up Care: Contact information for follow-up [facility] [address] [facility] [address] Transportation: ambulance Ambulance Finance Conversation Completed: 03/21/2024 Spoke to: Patient Verbalized Understanding: Yes Wheelchair van/Ambulance? Yes Ambulance transportation is medically necessary at discharge related to paraplegic . I have discussed Medicare/Private Insurance reimbursement guidelines for ambulance transport. I have also discussed need to accept the closest facility able to meet clinical care needs of patient. Patient verbalize understanding of their potential financial obligation and agree with ambulance transport. Functional status prior to admission: Completely Dependent Home Environment: Others in the home: child(hortensia), adult, pet(s) (caregivers). Current Living Arrangements: home/apartment/condo. Accessibility Concerns:ramp to enter. Current Functional Ability: Completely Dependent DME used at home: wheelchair - power, lift device DME Needed at Discharge: Patient is insured through: Primary Insurance: MEDICARE Payor: MEDICARE / Plan: MEDICARE PART A & B / Product Type: *No Product type* / Secondary Insurance: MEDICAID [place] Prescription Coverage: Yes This plan was formulated with input from patient and team. All are in agreement with plan. Danielle Jaime [facility] [phone] * Plan of Care - Luz Chang RN - 03/20/2024 12:19 PM EDT OUTCOME EVALUATION NOTE: OUTCOME SUMMARY: Pt denies CP or SOB with VSS on RA. Suprapubic replaced. Pt para at baseline, q2 turns maintained or refusal charted, see flowsheets. Pt total care. PLAN MOVING FORWARD: Dressing change due 03/21 Q2 turns or document refusal Exchange suprapubic cath INDIVIDUALIZED FALL PREVENTION INTERVENTIONS: Patient-specific fall risk factors per assessment: [current deficits]: para at baseline Assistance [level of assistance required for transfers and ambulation]: 2A with lift Supervision [direct monitoring required during toileting and ADLs]: hands on total care Surveillance [continuous indirect monitoring]: masimo and hourly rounding Patient-specific fall prevention interventions for sensory deficits provided, if applicable: [X] No CARE PLAN GOAL OUTCOME EVALUATION: * Consult Note - Brenda Hartman MD - 03/20/2024 7:15 AM EDT [facility] Department of Urologic Surgery Inpatient Consult Note Consultation Requested by: Killian Luis MD History of Present Illness: We are seeing Bruce Velasquez Jr. today at the request of Dr. Killian Luis MD for evaluation and advice about ?retained collecting sytem foreign body. Bruce Velasquez Jr. is a 58 y.o. male with pmhx of quadriplegia s/p fall from roof 10/26/2020, neurogenic bladder and bowel managed with chronic suprapubic tube and colostomy, stage-4 left-sided ischial pressure ulcer followed by wound care, hx of chronic recurrent multifocal osteomyelitis, nephrolithiasis and recurrent UTIs. He had recent admission during 10/25/2023-11/10/2023 for pseudomonas bacteremia/ sepsis from complicated UTI (Ucx grew multiple organisms) and obstructing right proximal ureteral stone (sp ureteral stent). Unable to obtain substantial history from patient who states I dont know or I think so to all my questions, he is clearly frustrated. In review of his chart, he was admitted at [facility] for pneumonia couple months ago, was also treated for URI, sepsis. He has had multiple UTIs since admission in October 2023. He is on antibiotics for chronic osteomyelitis. He has 2 real time operator caregivers and home health nurse visiting 3 times a week, caring for his wound and suprapubic catheter. Unclear when his suprapubic catheter has last changed. He presented on 03/16/24 with fever of 102.8 and altered mental status. U/A concerning for infectionwhich ultimately grew Proteus being covered with Ancef (narrowed from zosyn/vanc). WBC never elevated, creatinine normal and at baseline. AMS has improved. CT imaging obtained yesterday to define recurrent stone burden with unexpected finding for which weare consulted: Unexpected finding concerning for retained foreign body or wire fragment within the right collecting system. Increased number of nonobstructing right nephrolithiasis. He sees local Urologist Dr. Molina who the patient tells me he thinks did ureteroscopy and laser lithotripsy on right sided stone at some point between and October 2023 but unable to narrow this window. Interval Events: JAYLON Proteus UTI (abx: Zosyn/van --> ancef 03/18 --> cefadroxil 03/19) PAST MEDICAL HISTORY: No past medical history on file. PAST SURGICAL HISTORY: Past Surgical History: Procedure Laterality Date PRO ALLOGRAFT FOR SPINE SURGERY ONLY MORSELIZED N/A 10/27/2020 ALLOGRAFT FOR SPINE SURGERY ONLY; MORSELIZED (WRVU *) performed by Robbin Tong MD at [facility] MA[facility] OR PRO APPLY/REMOVE CRANIAL FIX DEV N/A 10/27/2020 PLACEMENT-CRANIAL TONGS (INCLUDING REMOVAL) (WRVU 4) performed by Robbin Tong MD at [facility] [place] PRO ARTHRODESIS POSTERIOR/PSTLAT TECH 1 INTERSPACE LUMBAR, EA ADD'L INTERSPACE N/A 10/27/2020 ARTHRODESIS, POSTERIOR VERTEBRAL EA.ADD. SEGMENT (WRVU 6.43) performed by Robbin Tong MD at [facility] OR PRO ARTHRODESIS, POST/POSTEROLAT TQ, SNGLE INTERSPACE; CERVICAL BELOW C2 SEGMNT Midline 10/27/2020 @ARTHRODESIS, POSTERIOR CERVICAL SPINE (WRVU 17.4) performed by Robbin Tong MD at [facility] MA[facility] OR PRO AUTOGRAFT SPINE SURGERY LOCAL FROM SAME INCISION N/A 10/27/2020 AUTOGRAFT FOR SPINE SURGERY ONLY, SAME INCISION (WRVU *) performed by Robbin Tong MD at [facility] OR PRO CHANGE OF BLADDER TUBE, SIMPLE N/A 10/25/2023 CYSTOSTOMY TUBE, CHANGE (WRVU 0.9) performed by Alfonso Brian MD at [facility] OR PRO CYSTOSCOPY, INSERT URETERAL STENT Right 10/25/2023 CYSTO, STENT PLACEMENT (WRVU 2.82) performed by Alfonso Brian MD at [facility] MA[facility] OR PRO CYSTOSCOPY, REMV CALCULUS, SIMPLE N/A 10/25/2023 CYSTO, REMOVAL OF STENT, FOREIGN BODY OR CALCULUS, SIMPLE (WRVU 2.81) performed by Alfonso Brian MD at [facility] MA[facility] OR PRO OPEN POST TREAT CERV VERT FX, 1 LVL N/A 10/27/2020 @OPEN TREATMENT &/OR REDUCTION VERTEBRAL FX., CERVICAL (WRVU 20.84) performed by Rosa Tong MD at [facility] MA[facility] OR PRO PLACE PERCUT GASTROSTOMY TUBE N/A 11/05/2020 ENDOSCOPY W DIRECTED PLACEMENT PERCUTANEOUS GASTROSTOMY TUBE-PEG (WRVU 3.66) performed by Yoel Medellin MD at [facility] MA[facility] OR PRO POSTERIOR SEGMENTAL INSTRUMENTATION 3-6 VRT SEG N/A 10/27/2020 POST SPINAL INSTRUMENTATION, 3-6 VERTEBRA, NON SEGMENTAL (WRVU 12.56) performed by Robbin Tong MD at [facility] MA[facility] OR MEDICATIONS: No current facility-administered medications on file prior to encounter. Current Outpatient Medications on File Prior to Encounter Medication Sig Dispense Refill multivitamin (THERAGRAN) Tablet Take 1 tablet by mouth daily. sulfamethoxazole-trimethoprim DS (Bactrim DS) 800-160 mg tablet Take 1 tablet by mouth 2 times daily. 30 days traZODone (Desyrel) 100 mg tablet Take 100 mg by mouth nightly. ascorbic acid, Vitamin C, (Vitamin C) 250 mg tablet Take 250 mg by mouth 2 times daily. cholecalciferoL (Vitamin D3) 1,000 unit tablet Take 1 tablet by mouth daily. baclofen (Lioresal) 20 mg tablet Take 1 tablet by mouth 3 times daily. (Patient taking differently:Take 60 mg by mouth 3 times daily.) divalproex ER (Depakote ER) 500 mg ER 24 hr tablet Take 1 tablet by mouth daily. (Patient taking differently: Take 500 mg by mouth 2 times daily.) mirabegron ER (Myrbetriq) 25 mg ER 24 hr tablet Take 1 tablet by mouth daily. pregabalin (Lyrica) 25 mg capsule Take 1 capsule by mouth 3 times daily. tamsulosin (Flomax) 0.4 mg capsule Take 1 capsule by mouth daily. 90 tablet 3 diclofenac (Voltaren) 1 % Gel Apply topically 4 times daily as needed. 100 g 3 ketoconazole (Nizoral) 2 % Cream Apply topically daily. 30 g 0 LORazepam (Ativan) 1 mg tablet Take 1 tablet by mouth 3 times daily as needed for Anxiety. (Patienttaking differently: Take 1 mg by mouth 3 times daily. TID plus 2 additional tablets PRN MDD 5mg) 90tablet 0 QUEtiapine (SEROquel) 25 mg tablet Take 1 tablet by mouth nightly as needed. (Patient taking differently: Take 300 mg by mouth nightly.) 30 tablet 0 senna (Senokot) 8.6 mg tablet Take 1 tablet by mouth 2 times daily. (Patient taking differently: Take 2 tablets by mouth 2 times daily.) 60 tablet 0 docusate sodium (Colace) 100 mg Capsule Take 100 mg by mouth 3 times daily. acetaminophen (Tylenol) 500 mg Tablet Take 1,000 mg by mouth Every 8 hours as needed. L. acidophilus/L.bulgaricus (FLORANEX ORAL) Take 1 tablet by mouth 3 times daily. naloxone (Narcan) 1 mg/mL Syringe For opioid overdose,spray 1 mL in each nostril. Repeat after 3-5 minutes if no or minimal response. Call 911 before administration. (Patient not taking: Reported on 03/17/2024) 4 mL 0 zolpidem (Ambien) 10 mg tablet Take 1 tablet by mouth nightly as needed for Sleep. (Patient not taking: Reported on 03/17/2024) 30 tablet 0 doxycycline (VIBRA-TABS) 100 mg Tablet Take 1 tablet by mouth 2 times daily. (Patient not taking: Reported on 08/04/2022) 14 tablet 0 ALLERGIES: Allergies Allergen Reactions Hydromorphone Other (See Comments) Daughter states makes him irritable and has hallucinations Family History: Noncontributory SOCIAL HISTORY: Social History Tobacco Use Smoking status: Never Smokeless tobacco: Never Vaping Use Vaping status: Never Used Substance Use Topics Alcohol use: Never Drug use: Never Frequency: 21.0 times per week Types: Marijuana Review of Systems: As above. Otherwise, negative. Physical Exam: Temp: [36.4 ??C (97.5 ??F)-37.5 ??C (99.5 ??F)] Heart Rate: -- Resp: [16-19] BP: (92-164)/(55-95) SpO2: [94 %-97 %] Heart Rate from SpO2: [69 bpm-84 bpm] Gen: NAD, nontoxic CV: regular rate Pulm: Non labored breathing on RA Abd: soft, NTND, no guarding. No CVA TTP. SPT in place draining yellow urine. Colostomy bag with dark output in bag. Ext: WWP Data independently reviewed: Recent Results (from the past 24 hour(s)) Basic Metabolic Panel (non-fasting) Result Value Ref Range Glucose Lvl 84 65 - 199 mg/dL BUN 14 10 - 20 mg/dL Creatinine 0.52 (L) 0.80 - 1.50 mg/dL Sodium 143 135 - 145 mmol/L Potassium 3.6 3.5 - 5.0 mmol/L Chloride 107 98 - 107 mmol/L CO2 27 22 - 31 mmol/L Anion Gap 9 5 - 15 mmol/L Calcium 8.8 8.5 - 10.5 mg/dL Estimated GFR 118 >=60 mL/min/1.73 m?? Hemogram Result Value Ref Range WBC 4.7 4.0 - 9.5 x10(3)/mcL RBC 3.65 (L) 4.58 - 5.54 x10(6)/mcL Hemoglobin 10.5 (L) 13.7 - 16.5 g/dL Hematocrit 32.1 (L) 40.5 - 48.5 % MCV 87.9 82.9 - 93.1 fL MCH 28.8 27.5 - 32.1 pg MCHC 32.7 32.0 - 35.7 g/dL Platelets 155 145 - 357 x10(3)/mcL RDWSD 48.8 (H) 36.0 - 45.0 fL RDWCV 15.0 (H) 11.4 - 13.8 % MPV 10.3 7.6 - 12.9 fL nRBC % Auto 0.0 % nRBC Abs Auto 0.000 0.000 - 0.000 x10(3)/mcL Differential, Automated Result Value Ref Range Neutrophils % 53.2 % Neutr Abs (ANC) 2.48 1.70 - 6.10 x10(3)/mcL Lymphocytes % 31.9 % Lymphocytes Abs 1.5 0.9 - 3.2 x10(3)/mcL Monocytes % 9.0 % Monocyte Abs 0.4 0.3 - 0.9 x10(3)/mcL Eosinophils % 5.1 % Eosinophils Abs 0.2 0.0 - 0.4 x10(3)/mcL Basophils % 0.6 % Basophils Abs 0.0 0.0 - 0.1 x10(3)/mcL Immature Gran % 0.20 % Viry Gran Abs 0.01 0.00 - 0.04 x10(3)/mcL Microbiology: Last 5 urine cultures: Lab Results Component Value Date URINECULTURE 10,000-49,000 cfu/ml Proteus mirabilis (A) 03/16/2024 URINECULTURE (A) 12/22/2023 50,000-99,000 cfu/ml mixed mucosal daphne Note: Culture shows multiple bacterial species suggesting mucosal contamination. URINECULTURE (A) 12/13/2023 50,000-99,000 cfu/ml mixed Gram Negative organisms Note: Culture shows multiple bacterial species suggesting mucosal contamination. URINECULTURE (A) 12/01/2023 Greater than 100,000 cfu/ml Pseudomonas aeruginosa Greater than 100,000 cfu/ml Klebsiella pneumoniae URINECULTURE (A) 11/24/2023 Greater than 100,000 cfu/ml Klebsiella pneumoniae Greater than 100,000 cfu/ml Pseudomonas aeruginosa Ucx 03/16/24: Urine Culture 10,000-49,000 cfu/ml Proteus mirabilis Abnormal Organism Proteus mirabilis Abnormal Resulting Agency [facility] Lab Susceptibility Proteus mirabilis VITEK 2 METHOD Amikacin Sensitive Ampicillin + Sulbactam Sensitive Aztreonam Sensitive Cefazolin Sensitive Cefepime Sensitive Ceftazidime Sensitive Ceftriaxone Sensitive Ertapenem Sensitive Gentamicin Sensitive Levofloxacin Resistant 1 Meropenem Sensitive Nitrofurantoin Resistant Piperacillin/Tazobactam Sensitive Tetracycline Resistant Tobramycin Sensitive Trimethoprim/Sulfa Resistant Bcx 03/16/24: NG x 2 days Imaging: I have personally reviewed the following imaging studies: CT a/p wo contrast 03/18/24: IMPRESSION 1. Unexpected finding concerning for retained foreign body or wire fragment within the right collecting system. 2. Increased number of nonobstructing right nephrolithiasis. 3. Increased conspicuity of right perinephric stranding. Pyelonephritis not excluded. Correlation to urinalysis recommended. 4. Nonobstructing dependent cholelithiasis. 5. Stable morphology of descending colostomy and oversewn long segment rectosigmoid stump that remains distended with fecal material. 6. Phlegmon versus soft tissue scarring at site of right ischial decubitus ulcer. Impression: 58y M w/ traumatic quadriplegia, neurogenic bladder managed with chronic suprapubic tube, recurrentnephrolithiasis and UTIs now presenting with sepsis from Proteus urinary tract infection currently on ancef. He is afebrile, hemodynamically stable and is clinically improving. In review of the imaging it is unclear if this is retained portion of prior stent in right upper pole versus calcified cast from prior stent. Regardless this is a potential nidus of his Rui and will require ureteroscopic extraction after appropriate 2 week treatment of active infection. We will work to arrange outpatient ureteroscopy , likely staged procedure with us versus his local urologist Dr. Molina in the next several weeks after 2 week antibiotic course. We would recommend continuation of suppressive antibiotic once 2 week antibiotic course is completed in order to ensure treatment of bacteriuria in setting of planned ureteroscopy. Recommendation: - ensure SPT is changed [id number], nursing staff to change if due for routine exchange - agree with sensitivity directed antibiotic treatment for Proteus UTI, recommend 2 week course - suppressive antibiotics to follow 2 week active antibiotic course - we will work to arrange outpatient [place]ter[place] [facility] Dr. Molina pending case discussion with Dr. Molina and Dr. Perez). Thank you for this interesting consult and allowing us to participate in the care of this patient. XX Consult service will continue to follow patient. Recommendations are above, please page if further consultation required. Brenda Hartman MD PGY-4 03/20/2024 Urology Consult [phone] Associated attestation - Lauri Saenz MD - 03/28/2024 6:40 PM EDT Attending Addendum I have seen the patient and reviewed the history and examination. I agree with the details as written. The assessment and plan were formulated in discussion with me and I agree with them as documented. I would add the following: Impression: 58y M w/ traumatic quadriplegia, neurogenic bladder managed with chronic suprapubic tube, recurrentnephrolithiasis and UTIs now presenting with sepsis from Proteus urinary tract infection currently on ancef. He is afebrile, hemodynamically stable and is clinically improving. In review of the imaging it is unclear if this is retained portion of prior stent in right upper pole versus calcified cast from prior stent. Regardless this is a potential nidus of his Rui and will require ureteroscopic extraction after appropriate 2 week treatment of active infection. We will work to arrange outpatient ureteroscopy , likely staged procedure with us versus his local urologist Dr. Molina in the next several weeks after 2 week antibiotic course. We would recommend continuation of suppressive antibiotic once 2 week antibiotic course is completed in order to ensure treatment of bacteriuria in setting of planned ureteroscopy. Recommendation: - ensure SPT is changed [id number], nursing staff to change if due for routine exchange - agree with sensitivity directed antibiotic treatment for Proteus UTI, recommend 2 week course - suppressive antibiotics to follow 2 week active antibiotic course - we will work to arrange outpatient ureteroscopy [place] [facility] Dr. Molina pending case discussion with Dr. Molina and Dr. Perez). Lauri Saenz * Plan of Care - Zonia Tao RN - 03/20/2024 2:09 AM EDT OUTCOME EVALUATION NOTE: OUTCOME SUMMARY:AOX4,debnies pain,v/s stable.tooked all his p[o meds w/o problem,CHG done,partial bath,suprapubic cath care done.reposition and turned pt.Mepilex to sacrum dry and intact.Placed wedgeto turn. Pt wearing soft bootie on both legs.Pt gets mad when awaken due to necessity to turn pt.doesn't want to be disturb when asleep. Refused to be turn most of the nite despite explanation.Continue to monitor pt and provide comfort.Slept well this nite till morning.Stable the whole shift. Colostomy leaked. Colostomy changed dom=ne. Stoma look healthy red and moist,surrounding skin normal..drsg to wound to lt lower quadrant beside the colostomy bag changed and cleaned. PLAN MOVING FORWARD:fall precaution,mobility,skin integrity maintenance,abx administration. INDIVIDUALIZED FALL PREVENTION INTERVENTIONS: Patient-specific fall risk factors per assessment: [current deficits]: quadriplegic, Assistance [level of assistance required for transfers and ambulation]: total care,assist x 2 Supervision [direct monitoring required during toileting and ADLs]: frequent rounding,call light Surveillance [continuous indirect monitoring]: masimo,bed alarm Patient-specific fall prevention interventions for sensory deficits provided, if applicable: [X] N/A * Consult Note - Brenda Hartman MD - 03/19/2024 11:25 AM EDT [facility] Department of Urologic Surgery Inpatient Consult Note Consultation Requested by: Killian Luis MD History of Present Illness: We are seeing Bruce Velasquez Jr. today at the request of Dr. Killian Luis MD for evaluation and advice about ?retained collecting sytem foreign body. Bruce Velasquez Jr. is a 58 y.o. male with pmhx of quadriplegia s/p fall from roof 10/26/2020, neurogenic bladder and bowel managed with chronic suprapubic tube and colostomy, stage-4 left-sided ischial pressure ulcer followed by wound care, hx of chronic recurrent multifocal osteomyelitis, nephrolithiasis and recurrent UTIs. He had recent admission during 10/25/2023-11/10/2023 for pseudomonas bacteremia/ sepsis from complicated UTI (Ucx grew multiple organisms) and obstructing right proximal ureteral stone (sp ureteral stent). Unable to obtain substantial history from patient who states I dont know or I think so to all my questions, he is clearly frustrated. In review of his chart, he was admitted at [facility] for pneumonia couple months ago, was also treated for URI, sepsis. He has had multiple UTIs since admission in October 2023. He is on antibiotics for chronic osteomyelitis. He has 2 real time operator caregivers and home health nurse visiting 3 times a week, caring for his wound and suprapubic catheter. Unclear when his suprapubic catheter has last changed. He presented on 03/16/24 with fever of 102.8 and altered mental status. U/A concerning for infectionwhich ultimately grew Proteus being covered with Ancef (narrowed from zosyn/vanc). WBC never elevated, creatinine normal and at baseline. AMS has improved. CT imaging obtained yesterday to define recurrent stone burden with unexpected finding for which weare consulted: Unexpected finding concerning for retained foreign body or wire fragment within the right collecting system. Increased number of nonobstructing right nephrolithiasis. He sees local Urologist Dr. Molina who the patient tells me he thinks did ureteroscopy and laser lithotripsy on right sided stone at some point between now and October 2023 but unable to narrow this window. PAST MEDICAL HISTORY: No past medical history on file. PAST SURGICAL HISTORY: Past Surgical History: Procedure Laterality Date PRO ALLOGRAFT FOR SPINE SURGERY ONLY MORSELIZED N/A 10/27/2020 ALLOGRAFT FOR SPINE SURGERY ONLY; MORSELIZED (WRVU *) performed by Robbin Tong MD at [facility] OR PRO APPLY/REMOVE CRANIAL FIX DEV N/A 10/27/2020 PLACEMENT-CRANIAL TONGS (INCLUDING REMOVAL) (WRVU 4) performed by Robbin Tong MD at [facility] PRO ARTHRODESIS POSTERIOR/PSTLAT TECH 1 INTERSPACE LUMBAR, EA ADD'L INTERSPACE N/A 10/27/2020 ARTHRODESIS, POSTERIOR VERTEBRAL EA.ADD. SEGMENT (WRVU 6.43) performed by Robbin Tong MD at [facility] OR PRO ARTHRODESIS, POST/POSTEROLAT TQ, SNGLE INTERSPACE; CERVICAL BELOW C2 SEGMNT Midline 10/27/2020 @ARTHRODESIS, POSTERIOR CERVICAL SPINE (WRVU 17.4) performed by Robbin Tong MD at [facility] OR PRO AUTOGRAFT SPINE SURGERY LOCAL FROM SAME INCISION N/A 10/27/2020 AUTOGRAFT FOR SPINE SURGERY ONLY, SAME INCISION (WRVU *) performed by Robbin Tong MD at [facility] OR PRO CHANGE OF BLADDER TUBE, SIMPLE N/A 10/25/2023 CYSTOSTOMY TUBE, CHANGE (WRVU 0.9) performed by Alfonso Brian MD at [facility] OR PRO CYSTOSCOPY, INSERT URETERAL STENT Right 10/25/2023 CYSTO, STENT PLACEMENT (WRVU 2.82) performed by Alfonso Brian MD at [facility] OR PRO CYSTOSCOPY, REMV CALCULUS, SIMPLE N/A 10/25/2023 CYSTO, REMOVAL OF STENT, FOREIGN BODY OR CALCULUS, SIMPLE (WRVU 2.81) performed by Alfonso Brian MD at [facility] OR PRO OPEN POST TREAT CERV VERT FX, 1 LVL N/A 10/27/2020 @OPEN TREATMENT &/OR REDUCTION VERTEBRAL FX., CERVICAL (WRVU 20.84) performed by Rosa Tong MD at [facility] OR PRO PLACE PERCUT GASTROSTOMY TUBE N/A 11/05/2020 ENDOSCOPY W DIRECTED PLACEMENT PERCUTANEOUS GASTROSTOMY TUBE-PEG (WRVU 3.66) performed by Yoel Medellin MD at [facility] OR PRO POSTERIOR SEGMENTAL INSTRUMENTATION 3-6 VRT SEG N/A 10/27/2020 POST SPINAL INSTRUMENTATION, 3-6 VERTEBRA, NON SEGMENTAL (WRVU 12.56) performed by Robbin Tong MD at [facility] OR MEDICATIONS: No current facility-administered medications on file prior to encounter. Current Outpatient Medications on File Prior to Encounter Medication Sig Dispense Refill multivitamin (THERAGRAN) Tablet Take 1 tablet by mouth daily. sulfamethoxazole-trimethoprim DS (Bactrim DS) 800-160 mg tablet Take 1 tablet by mouth 2 times daily. 30 days traZODone (Desyrel) 100 mg tablet Take 100 mg by mouth nightly. ascorbic acid, Vitamin C, (Vitamin C) 250 mg tablet Take 250 mg by mouth 2 times daily. cholecalciferoL (Vitamin D3) 1,000 unit tablet Take 1 tablet by mouth daily. baclofen (Lioresal) 20 mg tablet Take 1 tablet by mouth 3 times daily. (Patient taking differently:Take 60 mg by mouth 3 times daily.) divalproex ER (Depakote ER) 500 mg ER 24 hr tablet Take 1 tablet by mouth daily. (Patient taking differently: Take 500 mg by mouth 2 times daily.) mirabegron ER (Myrbetriq) 25 mg ER 24 hr tablet Take 1 tablet by mouth daily. pregabalin (Lyrica) 25 mg capsule Take 1 capsule by mouth 3 times daily. tamsulosin (Flomax) 0.4 mg capsule Take 1 capsule by mouth daily. 90 tablet 3 diclofenac (Voltaren) 1 % Gel Apply topically 4 times daily as needed. 100 g 3 ketoconazole (Nizoral) 2 % Cream Apply topically daily. 30 g 0 LORazepam (Ativan) 1 mg tablet Take 1 tablet by mouth 3 times daily as needed for Anxiety. (Patienttaking differently: Take 1 mg by mouth 3 times daily. TID plus 2 additional tablets PRN MDD 5mg) 90tablet 0 QUEtiapine (SEROquel) 25 mg tablet Take 1 tablet by mouth nightly as needed. (Patient taking differently: Take 300 mg by mouth nightly.) 30 tablet 0 senna (Senokot) 8.6 mg tablet Take 1 tablet by mouth 2 times daily. (Patient taking differently: Take 2 tablets by mouth 2 times daily.) 60 tablet 0 docusate sodium (Colace) 100 mg Capsule Take 100 mg by mouth 3 times daily. acetaminophen (Tylenol) 500 mg Tablet Take 1,000 mg by mouth Every 8 hours as needed. L. acidophilus/L.bulgaricus (FLORANEX ORAL) Take 1 tablet by mouth 3 times daily. naloxone (Narcan) 1 mg/mL Syringe For opioid overdose,spray 1 mL in each nostril. Repeat after 3-5 minutes if no or minimal response. Call 911 before administration. (Patient not taking: Reported on 03/17/2024) 4 mL 0 zolpidem (Ambien) 10 mg tablet Take 1 tablet by mouth nightly as needed for Sleep. (Patient not taking: Reported on 03/17/2024) 30 tablet 0 doxycycline (VIBRA-TABS) 100 mg Tablet Take 1 tablet by mouth 2 times daily. (Patient not taking: Reported on 08/04/2022) 14 tablet 0 ALLERGIES: Allergies Allergen Reactions Hydromorphone Other (See Comments) Daughter states makes him irritable and has hallucinations Family History: Noncontributory SOCIAL HISTORY: Social History Tobacco Use Smoking status: Never Smokeless tobacco: Never Vaping Use Vaping Use: Never used Substance Use Topics Alcohol use: Never Drug use: Never Frequency: 21.0 times per week Types: Marijuana Review of Systems: As above. Otherwise, negative. Physical Exam: Temp: [37.1 ??C (98.8 ??F)-37.5 ??C (99.5 ??F)] Heart Rate: -- Resp: [18-20] BP: (94-165)/(65-96) SpO2: [93 %-97 %] Heart Rate from SpO2: [66 bpm-81 bpm] Gen: NAD, nontoxic CV: regular rate Pulm: Non labored breathing on RA Abd: soft, NTND, no guarding. No CVA TTP. SPT in place draining yellow urine. Colostomy bag with dark output in bag. Ext: WWP Data independently reviewed: Recent Results (from the past 24 hour(s)) Basic Metabolic Panel (non-fasting) Result Value Ref Range Glucose Lvl 86 65 - 199 mg/dL BUN 14 10 - 20 mg/dL Creatinine 0.52 (L) 0.80 - 1.50 mg/dL Sodium 144 135 - 145 mmol/L Potassium 3.5 3.5 - 5.0 mmol/L Chloride 107 98 - 107 mmol/L CO2 27 22 - 31 mmol/L Anion Gap 10 5 - 15 mmol/L Calcium 9.0 8.5 - 10.5 mg/dL Estimated GFR 118 >=60 mL/min/1.73 m?? Hemogram Result Value Ref Range WBC 4.5 4.0 - 9.5 x10(3)/mcL RBC 3.61 (L) 4.58 - 5.54 x10(6)/mcL Hemoglobin 10.3 (L) 13.7 - 16.5 g/dL Hematocrit 31.8 (L) 40.5 - 48.5 % MCV 88.1 82.9 - 93.1 fL MCH 28.5 27.5 - 32.1 pg MCHC 32.4 32.0 - 35.7 g/dL Platelets 133 (L) 145 - 357 x10(3)/mcL RDWSD 49.8 (H) 36.0 - 45.0 fL RDWCV 15.4 (H) 11.4 - 13.8 % MPV 11.0 7.6 - 12.9 fL nRBC % Auto 0.0 % nRBC Abs Auto 0.000 0.000 - 0.000 x10(3)/mcL Differential, Automated Result Value Ref Range Neutrophils % 55.9 % Neutr Abs (ANC) 2.52 1.70 - 6.10 x10(3)/mcL Lymphocytes % 27.1 % Lymphocytes Abs 1.2 0.9 - 3.2 x10(3)/mcL Monocytes % 11.5 % Monocyte Abs 0.5 0.3 - 0.9 x10(3)/mcL Eosinophils % 4.9 % Eosinophils Abs 0.2 0.0 - 0.4 x10(3)/mcL Basophils % 0.4 % Basophils Abs 0.0 0.0 - 0.1 x10(3)/mcL Immature Gran % 0.20 % Viry Gran Abs 0.01 0.00 - 0.04 x10(3)/mcL Microbiology: Last 5 urine cultures: Lab Results Component Value Date URINECULTURE 10,000-49,000 cfu/ml Proteus mirabilis (A) 03/16/2024 URINECULTURE (A) 12/22/2023 50,000-99,000 cfu/ml mixed mucosal daphne Note: Culture shows multiple bacterial species suggesting mucosal contamination. URINECULTURE (A) 12/13/2023 50,000-99,000 cfu/ml mixed Gram Negative organisms Note: Culture shows multiple bacterial species suggesting mucosal contamination. URINECULTURE (A) 12/01/2023 Greater than 100,000 cfu/ml Pseudomonas aeruginosa Greater than 100,000 cfu/ml Klebsiella pneumoniae URINECULTURE (A) 11/24/2023 Greater than 100,000 cfu/ml Klebsiella pneumoniae Greater than 100,000 cfu/ml Pseudomonas aeruginosa Ucx 03/16/24: Urine Culture 10,000-49,000 cfu/ml Proteus mirabilis Abnormal Organism Proteus mirabilis Abnormal Resulting Agency [facility] Lab Susceptibility Proteus mirabilis VITEK 2 METHOD Amikacin Sensitive Ampicillin + Sulbactam Sensitive Aztreonam Sensitive Cefazolin Sensitive Cefepime Sensitive Ceftazidime Sensitive Ceftriaxone Sensitive Ertapenem Sensitive Gentamicin Sensitive Levofloxacin Resistant 1 Meropenem Sensitive Nitrofurantoin Resistant Piperacillin/Tazobactam Sensitive Tetracycline Resistant Tobramycin Sensitive Trimethoprim/Sulfa Resistant Bcx 03/16/24: NG x 2 days Imaging: I have personally reviewed the following imaging studies: CT a/p wo contrast 03/18/24: IMPRESSION 1. Unexpected finding concerning for retained foreign body or wire fragment within the right collecting system. 2. Increased number of nonobstructing right nephrolithiasis. 3. Increased conspicuity of right perinephric stranding. Pyelonephritis not excluded. Correlation to urinalysis recommended. 4. Nonobstructing dependent cholelithiasis. 5. Stable morphology of descending colostomy and oversewn long segment rectosigmoid stump that remains distended with fecal material. 6. Phlegmon versus soft tissue scarring at site of right ischial decubitus ulcer. Impression: 58y M w/ traumatic quadriplegia, neurogenic bladder managed with chronic suprapubic tube, recurrentnephrolithiasis and UTIs now presenting with sepsis from Proteus urinary tract infection currently on ancef. He is afebrile, hemodynamically stable and is clinically improving. In review of the imaging it is unclear if this is retained portion of prior stent in right upper pole versus calcified cast from prior stent. Regardless this is a potential nidus of his Rui and will require ureteroscopic extraction after appropriate 2 week treatment of active infection. We will work to arrange outpatient ureteroscopy , likely staged procedure with us versus his local urologist Dr. Molina in the next several weeks after 2 week antibiotic course. We would recommend continuation of suppressive antibiotic once 2 week antibiotic course is completed in order to ensure treatment of bacteriuria in setting of planned ureteroscopy. Recommendation: - No acute indication for Urologic intervention - ensure SPT is changed [id number], nursing staff to change if due for routine exchange - agree with sensitivity directed antibiotic treatment for Proteus UTI, recommend 2 week course - suppressive antibiotics to follow 2 week active antibiotic course - we will work to arrange outpatient [place]teroscopy [place] [facility] with Dr. Molina pending case discussion with Dr. Molina and Dr. Perez). Thank you for this interesting consult and allowing us to participate in the care of this patient. XX Consult service will continue to follow patient. Recommendations are above, please page if further consultation required. Brenda Hartman MD PGY-4 03/19/2024 Urology Consult [phone] Associated attestation - Lauri Saenz MD - 03/19/2024 2:13 PM EDT Attending Addendum I have seen the patient and reviewed the history and examination. I agree with the details as written. The assessment and plan were formulated in discussion with me and I agree with them as documented. I would add the following: Likely retained portion of stent Not causing obstruction Possible nidus for UTI's Recommend complete antibiotics We will coordinate with Dr Molina or Dr Perez to coordinate definitive management Ureteroscopy in 1-2 weeks after current pyelonephritis treated. Lauri Saenz * Plan of Care - Zonia Tao RN - 03/19/2024 1:21 AM EDT OUTCOME EVALUATION NOTE: OUTCOME SUMMARY:AOX4,resting in bed,watching his ipad and talking to his .denies pain. Repositioned pt.Turned q 2 and prn . Able to sleep well.iv abx administered staffing account manager as scheduled and pt got mad that he was awaken and that blood being drawn at this time.explained to pt but stated pt frustrated despite explanation that meds has to be given in time.Refuses to be turned at that time. Pt went back to sleep. Afebrlle the whole shift. PLAN MOVING FORWARD:fall precaution,mobility,skin integrity maintenance,abx administration. INDIVIDUALIZED FALL PREVENTION INTERVENTIONS: Patient-specific fall risk factors per assessment: [current deficits]: quadreplegic, Assistance [level of assistance required for transfers and ambulation]: total care,assist x 2 Supervision [direct monitoring required during toileting and ADLs]: frequent rounding,call light Surveillance [continuous indirect monitoring]: masimo,bed alarm Patient-specific fall prevention interventions for sensory deficits provided, if applicable: [X] N/A * Consult Note - Angelia Basilio RN - 03/18/2024 1:38 PM EDT Images from the original note were not included. Certified Wound Care Nurse Note Situation: Asked to see Bruce Velasquez Jr. by Meron POSADA for ongoing L ischial PI Background: eD-H notes reviewed for history, admitting diagnosis and active problem list. Per MD note Favio is a 58 y.o. male w/ history of quadriplegia s/p fall from roof 10/26/2020 with s/p C4-T2 spinal fusion for C6-7 bilateral facet dislocation, neurogenic bladder/bowel with chronic suprapubic catheter, colostomy, stage-4 left-sided ischial pressure ulcer followed by wound care, hx of chronic r ecurrent multifocal osteomyelitis, hx of recurrent UTIs with recent admission for pseudomonas bacteremia in October 2023, Presented with fever, altered metal status. Febrile in the ED, otherwise HDS. UA with pyuria, concern for complicated UTI as culprit for presentation. On Zosyn monotherapy, prior sensitivities reviewed (see below) and has grown proteus remotely that was resistant. Given overall clinical improvementthus far will hold current therapy and monitor culture growth to further narrow. Decubital ulcer inLt buttock was packed with clean strip, no evidence of cellulitis, appreciate wound care consultation. Family updated on phone and sending along updated Rx list. Wound Assessment and Care Provided: Patient seen in room 437. Permission to see patient. Patient was turned to the right side with assistance. Mepilex to left ischium was removed. Cleansed with wound cleanser. Small amount of yellow serosanguinous drainage. Does not probe. Small amount of undermining from 12-3. Deepest at 2:00 is 0.5cm. [place] hypergranular tissue to the wound bed. Promogran Yolanda placed in the wound bed and coveredwith mepilex border. Scarring to right ischium and sacral area. Patient was then turned comfortablyto the left side. Left Ischium: Abdominal wound: Mepilex and Aquacel Ag removed. Cleansed with wound cleanser. Moderate amounts of yellow drainage. Granulation tissue present. Aquacel Ag applied to wound bed and covered with mepilex border sacrum. Michael Score: 15 Last Pressure Ulcer Prevention assessment: Shift Pressure Injury Prevention Occiput: No Injury Thoracic Spine: No Injury Sacral: Redness, Blanchable Ischial - left: Existing Injury prior to this admission Ischial - right: No Injury Heel - left: No Injury Heel - right: No Injury Elbow - left: No Injury Elbow - right: No Injury Device Sites: IV sites, O2 sat monitor, Prevalon Boots Other Sites: portacath Existing Wounds: Wound 03/18/24 1329 midline lower quadrant (Active) Wound WDL WDL 03/18/24 1329 Dressing Appearance moist drainage;intact 03/18/24 1329 Base moist;pink 03/18/24 132 Wound Length (cm) 4 cm 03/18/24 1329 Wound Width (cm) 3.5 cm 03/18/24 1329 Wound Surface Area (cm^2) 14 cm^2 03/18/24 1329 Drainage Characteristics/Odor serosanguineous;yellow 03/18/24 132 Drainage Amount moderate 03/18/24 1329 Wound Cleaning cleansed with;wound cleanser 03/18/24 1329 Wound Interventions Dressing changed 03/18/24 1329 Dressing dressing removed;dressing applied;foam;hydrofiber 03/18/24 132 Wound Image 03/18/24 1329 Pressure Injury 03/17/24 1610 ischial tuberosity (Active) Dressing Appearance dry;intact;moist drainage 03/18/24 1330 Pressure Injury Appearance pink;moist;slough 03/18/24 1330 Wound Length (cm) 1 cm 03/18/24 1330 Wound Width (cm) 1.6 cm 03/18/24 1330 Wound Depth (cm) 0.5 cm 03/18/24 1330 Wound Surface Area (cm^2) 1.6 cm^2 03/18/24 1330 Wound Volume (cm^3) 0.8 cm^3 03/18/24 1330 Stage Stage 4 03/18/24 1330 Drainage Characteristics/Odor yellow 03/18/24 1330 Drainage Amount small 03/18/24 1330 Wound Cleaning cleansed with;wound cleanser 03/18/24 1330 Wound Interventions Dressing changed 03/18/24 1330 Dressing dressing removed;dressing applied;foam;collagen dressing 03/18/24 133 Wound Image 03/18/24 1330 Nutritional Status Wt Readings from Last 1 Encounters: 03/16/24 85.7 kg (189 lb) Body mass index is 24.27 kg/m??. Labs Lab Results Component Value Date ALBUMIN 3.2 10/25/2023 ALBUMIN 2.8 (L) 11/01/2020 ALBUMIN 3.5 10/27/2020 CRP 191.7 (H) 03/16/2024 CRP 13.9 (H) 08/04/2022 HA1C 4.8 10/25/2023 WBC 5.1 03/18/2024 WBC 8.8 03/16/2024 WBC 7.4 11/09/2023 HGB 10.0 (L) 03/18/2024 HGB 10.2 (L) 03/16/2024 HGB 8.9 (L) 11/09/2023 HCT 31.5 (L) 03/18/2024 HCT 31.4 (L) 03/16/2024 HCT 26.5 (L) 11/09/2023 PLATELET 122 (L) 03/18/2024 PLATELET 117 (L) 03/16/2024 PLATELET 430 (H) 11/09/2023 INR 1.2 03/16/2024 INR 1.0 10/26/2020 PT 13.6 (H) 03/16/2024 PT 11.1 10/26/2020 Nutritional Intake Nutrition Diet/Nutrition Received: regular Diet/Feeding Assistance: assisted with feeding Diet/Feeding Tolerance: good Intake (%): 100% Current bed: [facility] Assessment: 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 No signs clear signs of infection. [place] hypergranular tissue to base. Scarring to periwound. Due to chronicity Promogran used to maintain a physiologically moist microenvironment conducive to granulation and decrease of proteases causing a prolonged inflammatory phase of healing. Patient with a chronic abdominal wound from an abdominal surgery. Moderate amounts of drainage. Granulation tissue to wound bed. Aquacel applied to the wound bed for drainage management. Wound Treatment Recommendations: Left Ischium: Promogran Yolanda: Nursing to change dressing every 3 days and as needed for drainage. 1. Cleanse the area with saline or wound cleanser and gauze. 2. Place Promogran (or promogran yolanda) to fit the wound bed. If the wound bed is dry moisten the Promogran with a few drops of saline. 3. Cover with mepilex border dressing. Abdominal Midline: Aquacel Ag and Mepilex border dressing Nursing to change dressing every 1 to 3 days and as needed for dressing with 50% or greater strike though drainage. 1. Cleanse the wound with dermal wound cleanser or normal saline. 2. Cut the Aquacel Ag to fit the wound and lightly fill the wound cavity, leaving a tail for removal. 3. Cover with Mepilex border dressing. (AquacelAg 1cm ribbon PS# [id number]) (AquacelAg 2cm ribbon PS# [id number]) Pressure Injury Prevention: Sensory: Inspect feet, ankles and bony prominences every shift for pressure ulcer development. Inspect tube sites daily; reposition/secure to avoid pressure. Moisture: Follow a bowel and bladder schedule for incontinence patients and document. Cleanse skin gently after each incontinence episode with Shield Barrier Wipes. Apply Hydraguard Skin Cream to perineal area bid and prn. Apply Z-Guard Skin Protectant Paste to denuded perineal skin bid and prn. Consider use of a fecal incontinence containment device. Assess skin for fungal infections, notify provider. Apply Remedy Antifungal Clear Ointment to affected skin. Apply 2% Antifungal Powder (Miconazole) to affected skin and dust off excess. Use disposable air pads with low air loss or fluidized air surfaces to maintain dry skin and prevent fungal infections. Avoid adult diapers except when patient is out of bed to ambulate or in a chair. Place InterDry Ag in a single layer into skin folds, making sure that 2 inches of the fabric extends out beyond the skin fold to the air. Activity: Implement reminder system for repositioning every two hours while in bed Limit time OOB to the chair to 2 hour intervals. Use a Lee Silber chair cushion beneath patient at all times while in the chair. Reinforce teaching to shift weight every 15 minutes while in the chair. This can be done by shifting weight side to side to off load pressure to ischial tuberosities If existing sacral pressure injury, while in the chair, place a pillow at the lumbar spine to offload pressure to the wound Nutrition: Evaluate nutrition/hydration status. Encourage patient to eat or drink nutritional supplements as ordered. Assist with snacks and meals as appropriate. Obtain a Nutrition consult. Mobility: Turn and reposition every 2 hours and document in ED-H. Place a pillow above and below sacral area to off load pressure to the sacrum Offload pressure from heels by placing pillows lengthwise beneath legs while in bed. Offload pressure from heels by adjusting length of foot of bed. VersaCare AIR bed/Centrella Use a disposable chux and a single fitted sheet beneath patient Turn and reposition every two hours. Position hips at triangle icon on the inside of the bed rail. Retract foot of bed to 1-2 inches from the feet to allow for decreased heel pressure. If patient unable to reposition feet independently, elevate patients legs by placing 1-2 pillows lengthwise beneath their legs allowing the heels float over the surface of the bed. Friction and Shear: Reposition avoiding shear forces, utilizing maxislide, trendelenberg and max inflate (boost) feature on beds to assist with repositioning. Position hips at triangle icon on bed. Use skin prep on heels and elbows bid. Keep HOB less than or equal to 30 degrees. Use Nourishing Skin Cream after baths for extra dry skin. Follow up: Wound Care will follow peripherally as an inpatient (will not see weekly) please notify Wound Care if there are issues with the plan of care. Discussed plan with: /ARYAN/PA: Evgeny Gamboa RN: Li Please contact Angelia Basilio RN on pager secure chat or the wound care team at [phone] or pager [phone] with skin and wound care concerns or questions. Electronically Signed By: Angelia Basilio RN * Initial Assessments - Usha Hutchinson RN - 03/18/2024 11:11 AM EDT Office of Care Management Initial Assessment Usha Hutchinson RN reviewed record and discussed patient with Care Team. Source of Information: Team, bedside nurse, medical record, and Chart Review Admitted From: Home Reason for Hospitalization: I have a UTI Last COVID test: Lab Results Component Value Date [id number] Not Detected 11/19/2020 Past medical History: No past medical history on file. Hospitalizations Within the Past 30 Days: no previous admission in last 30 days Current Decision-Making Capacity: Self Advance Care Planning: Do NOT Attempt CPR - Inpatient Received -Advanced Directive: Yes, on file Who is your DPOA-HC?: Child Current Coping/Education/Information Needs: able to make needs known Current Functional Ability: Completely Dependent Functional Status Prior to Admission: Completely Dependent Prior ADLs & IADLs: Assistance Needed with ADLs & IADLs Cooking / Eating: Family / Friends Provide Meals Cleaning: Family / Friends do Cleaning Laundry: Has Assistance Pet Care: Family / Friends Manage Driving: Uses Senior / Medicaid Rides Groceries: Family / Friends Provide Groceries Medication Management: Family / Friend / Caregiver Assists with Medications (who) Bathing: Needs Assistance with Bathing Dressing: Needs Assistance with Dressing Home Environment: Others in the home: child(hortensia), adult, pet(s) (caregivers). Current Living Arrangements: home/apartment/condo. Accessibility Concerns:ramp to enter. In the last 12 months, was there a time when you were not able to pay the mortgage or rent on time?: No In the last 12 months, how many places have you lived?: 1 In the last 12 months, was there a time when you did not have a steady place to sleep or slept in ashelter (including now)?: No In the past 12 months has the electric, gas, oil, or water company threatened to shut off services in your home?: No Within the past 12 months, you worried that your food would run out before you got the money to buymore.: Never true Within the past 12 months, the food you bought just didn't last and you didn't have money to get more.: Never true Resource / Environmental Concerns: Resource/Environmental Concerns: none In the past 12 months, has lack of transportation kept you from medical appointments or from getting medications?: No In the past 12 months, has lack of transportation kept you from meetings, work, or from getting things needed for daily living?: No Current DME: wheelchair - power, lift device Home Address listed as: [address] [place] [id number] Social & Family Supports: All names listed below confirmed with patient as current and correct Extended Emergency Contact Information Primary Emergency Contact: Luz Velasquez Mobile Relation: Child Secondary Emergency Contact: Nicki Shaikh Mobile Relation: Other Mother: Jennifer Velasquez Current Care Provided by: homecare agency, other (see comments) (caregivers) Provides Primary Care For: no one, unable/limited ability to care for self Caregiver if needed: other (see comments), homecare agency (caregivers) Quality of Family relationships: involved, helpful, supportive Community Resources being provided currently: homecare agency Behavioral Health History: deperession and anxiety Substance Use/Abuse listed: Social History Tobacco Use Smoking Status Never Smokeless Tobacco Never 0 No problems reported 1-2 Low level 3-5 Moderate level 6-8 Substantial level 9- 10 Severe level 0 to 7 points: Low risk 8 to 15 points: Medium risk 16 to 19 points: High risk 20 to 40 points: Addiction likely Other Pertinent/Service Specific Information: n/a Health/Prescription Coverage: Primary Insurance: MEDICARE Payor: MEDICARE / Plan: MEDICARE PART A & B / Product Type: *No Product type* / Secondary Insurance: MEDICAID OR ; Prescription Coverage: Yes Preferred Pharmacy: [id number] - [place], [place] - [address] [facility] [address] [facility] [address] [facility] [place], [place] - [address] [address] [place], [place] - [facility] [facility] [address] Status: Patient is a : No Primary Care Provider listed: Genevieve Baez MD [phone] Patient/Caregiver Goals of Treatment: return home Potential Needs for Transition of Care: home health care Agency Referrals: I have met with the patient to: discuss discharge planning needs. provide the [facility] Office of Care Management letter from the [employer] pertaining to rehab referrals. provide a letter describing our affiliations within the [facility] and educate about their right to choose where referrals are sent. provide a list of Home Health Agencies / Durable Medical Equipment vendors which serve their preferred geographic area. provided patient with [facility] Star Quality Rating handout. They have requested referrals to: [facility] [address] [place] [address] Note routed to a Block Tester who will communicate referrals to facilities and provide any required information. Transportation: no concerns Transportation Anticipated: ambulance Concerns to be Addressed: no discharge needs identified Assessment: Patient is admitted to medicine service for fevers. Plan: Referral for resumption of VNA services A member of the Care Management team will continue to monitor progress, follow for continuity of care and assist with transition of care planning. Usha Hutchinson RN, BSN, BILL[employer] Ac[employer] Administrator Pager [phone] * Consult Note - Ondina Cruz RN - 03/18/2024 10:49 AM EDT Images from the original note were not included. Routine vascular access rounding. Dressing c/d/I, power port. Lumen infusing. Dressing change due 03/24. * Plan of Care - Zonia Tao RN - 03/18/2024 6:57 AM EDT OUTCOME EVALUATION NOTE: OUTCOME SUMMARY:a o x 4,no sensation ,no movement to both lower extremeties.wearing soft boots .turn q 2 and prn .denies cp or sob,watching movies on his cellphone and pad.portacath intact and flushing well with good blood return.suprapubic with clear to cloudy good amount of urine.sleep on an off with no complaints.low grade fever .tylenol administered as scheduled. Stable the whole nite.continue to monitor. PLAN MOVING FORWARD:fall precaution,mobility,skin integrity maintenance,abx administration. 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 1965 Allergies Allergen Reactions Hydromorphone Other (See Comments) Daughter states makes him irritable and has hallucinations Person Interviewed: [facility] med list Quality of Interview/accuracy of medication list: good Sources used to compile medication list: [x] Epic medication list [] SureScripts/Dispense Report [] PCP/Specialist list [x] Retail pharmacy [] Patient list [] MAR [] Other Changes made to home medication list: Additions: Vitamin C Vitamin D Multivitamin Bactrim DS BID x 30 days (unclear when patient started taking) Trazodone 100mg HS Deletions: Buspirone Doxycycline Lactulose Melatonin Midodrine Mirtazapine Naloxone Zolpidem Changes: Baclofen: dose increased to 60mg TID Divalproex: dose increased to 500mg BID Docusate: dose increased to TID Lorazepam: dose increased to 1mg TID plus 2 additional tabs PRN (MDD 5mg) Quetiapine: dose increased to 300mg HS Senna: dose increased to 2 tabs BID Additional Notes: I called patient's daughter and TONY Escobar multiple times and left a message but was unable to reach her. I also was unable to reach Nicki at number listed in chart. I called patient's [facility] who faxed me a list of his recently filled medications and updated med list accordingly. Recommended changes: None The home medication list is now updated to the best of my knowledge and is ready to be reconciled by the provider. Please contact the TelePharmacy Medication Reconciliation Pharmacist at for any questions. Irena Ferrell RPH * ED Triage - Killian Christine RN - 03/16/2024 5:24 PM EDT HPI (Adult) Stated Reason for Visit: Pt arrives from home via EMS with c/o fever at 0200 and chronic UTI. EMS called by [facility]. Also has Decubitus ulcer to left buttocks. TMax 102.8 at home. Pt A/Ox4, GCS 15. Pt denies pain, states earlier I wasnt feeling good. but unable to articulate his exact symptoms. History Obtained From: patient, EMS Precipitating Event(s): none * ED Triage - Lucie Johnson RN - 03/16/2024 1:32 PM EDT Triage nurse Thi called from [facility] to inform us that this pt is coming from home via private car. Pt has been on antibiotics(Bactrum) for 2 weeks and is now endorsing chills, SOB, Low 02. He was recently hospitalized. P thas hx of suprapubic cath, quadplegic and followed by ID/Wound clinic. Any questions call [place] at [phone]. documented in this encounter Plan of Treatment Scheduled Referrals Name Type Priority Associated Diagnoses Orde r Schedule Referral to Home Health Outpatient Referral Routine Complicated UTI (urinary tract infection) Ordered: 03/21/2024 documented as of this encounter Procedures Procedure Name Priority Date/Time Associated Diagnosis Comments HEMOGRAM Routine 03/20/2024 6:20 AM EDT DIFFERENTIAL, AUTOMATED Routine 03/20/20 6:20 AM EDT CBC (WITH DIFF) Routine 03/20/2024 6:20 AM EDT BASIC METABOLIC PANEL Routine 03/20/2024 6:20 AM EDT HEMOGRAM Routine 03/19/2024 3:45 AM EDT DIFFERENTIAL, AUTOMATED Routine 03/19/20 24 3:45 AM EDT CBC (WITH DIFF) Routine 03/19/2024 3:45 AM EDT BASIC METABOLIC PANEL Routine 03/19/2024 3:[address] ABDOMEN AND PELVIS WO CONTRAST Routine 03/18/2024 5:39 PM EDT VANCOMYCIN LEVEL, RANDOM Routine 03/18/2024 6:00 AM EDT HEMOGRAM Routine 03/18/2024 6:00 AM EDT DIFFERENTIAL, AUTOMATED Routine 03/18/20 24 6:00 AM EDT CBC (WITH DIFF) Routine 03/18/2024 6:00 AM EDT BASIC METABOLIC PANEL Routine 03/18/2024 6:00 AM EDT URINALYSIS MICROSCOPIC EXAM STAT 03/16/2024 9:18 PM EDT URINALYSIS WITH REFLEX CULTURE STAT 03/16/2024 9:18 PM EDT URINE CULTURE STAT 03/16/2024 9:18 PM EDT HEMOGRAM STAT 03/16/2024 8:24 PM EDT DIFFERENTIAL, AUTOMATED STAT 03/16/20 8:24 PM EDT SEDIMENTATION RATE STAT 03/16/2024 8: 24 PM EDT CBC (WITH DIFF) STAT 03/16/2024 8:24 PM EDT BLOOD GAS VENOUS POC Routine 03/16/2024 6:31 PM EDT RESPIRATORY PANEL PCR STAT 03/16/2024 6:26 PM EDT BLOOD CULTURE STAT 03/16/2024 6:25 PM EDT XR CHEST ONE VIEW STAT 03/16/2024 5:5 9 PM EDT EKG 12-LEAD STAT 03/16/2024 5:49 PM EDT LYME CONFIRMATION BY WOO Routine 03/16/2024 5:43 PM EDT ACUTE TICK BORNE INFECTION PANEL STAT 03/16/2024 5:43 PM EDT CRP, ACUTE INFLAMMATION STAT 03/16/20 5:43 PM EDT LYME IGG & IGM ANTIBODY Routine 03/16/20 5:43 PM EDT BLOOD CULTURE STAT 03/16/2024 5:43 PM EDT HC PARTIAL THROMBOPLASTIN TIME STAT 03/16/2024 5:43 PM EDT PROTHROMBIN TIME STAT 03/16/2024 5:43 PM EDT MAGNESIUM STAT 03/16/2024 5:43 PM EDT BASIC METABOLIC PANEL STAT 03/16/2024 5:43 PM EDT documented in this encounter Results * Differential, Automated (03/20/2024 6:20 AM EDT) Neutrophil % 53.2 % [facility] Neutrophil Absolute 2.48 1.70 - 6.10 x10(3)/[facility] Lymph % 31.9 % [facility] Lymphocytes Abs 1.5 0.9 - 3.2 x10(3)/[facility] Monocyte % 9.0 % [facility] Monocyte Abs 0.4 0.3 - 0.9 x10(3)/[facility] Eos % 5.1 % [facility] Eosinophils Abs 0.2 0.0 - 0.4 x10(3)/[facility] Basophil % 0.6 % [facility] Baso Absolute 0.0 0.0 - 0.1 x10(3)/[facility] Immature Gran % 0.20 % [facility] Comment: Immature granulocytes(IG's)percentage and absolute count will include metamyelocytes, myelocytes, and promyelocytes. Blood smears from CBCs yielding IG's will be scanned manually for concordance. If this scan disagrees with the automated IG or if promyelocytes are noted, a manual differential will be performed. Immature Gran Absolute 0.01 0.00 - 0.04 x10(3)/[facility] Blood 03/20/2024 6:20 AM EDT 03/20/2024 6:30 AM EDT Narrative Resulting Agency Comment Spec In Lab Edwina Barclay MD HEMATOLOG Y ORDERABLES [facility] [place] [id number] * (ABNORMAL) Hemogram (03/20/2024 6:20 AM EDT) Pathologist [facility] White Blood Cell 4.7 4.0 - 9.5 x10(3)/ L [facility] Red Blood Cell 3.65(L) 4.58 - 5.54 x10(6)/ L [facility] Hemoglobin 10.5(L) 13.7 - 16.5 g/dL [facility] Hematocrit 32.1(L) 40.5 - 48.5 % [facility] Mean Cell Volume 87.9 82.9 - 93.1 fL [facility] Mean Cell Hemoglobin 28.8 27.5 - 32.1 pg [facility] Mean Cell Hemoglobin Concentration 32.7 32.0 - 35.7 g/dL [facility] Platelet 155 145 - 357 x10(3)/[facility] RDW Standard Deviation 48.8(H) 36.0 - 45.0 [facility] RDW coefficient of variation 15.0(H) 11.4 - 13.8 % [facility] Mean Platelet Volume 10.3 7.6 - 12.9 fL [facility] NRBC% auto 0.0 % [facility] NRBC Absolute 0.000 0.000 - 0.000 x10(3)/[facility] Blood 03/20/2024 6:20 AM EDT 03/20/2024 6:30 AM EDT Narrative Resulting Agency Comment Spec In Lab Edwina Barclay MD HEMATOLOG Y ORDERABLES [facility] [place] [address] * (ABNORMAL) Basic Metabolic Panel (non-fasting) (03/20/2024 6:20 AM EDT) [facility] Glucose 84 65 - 199 mg/dL [facility] Comment:Diabetes: >=200 mg/d L plus symptoms Blood Urea Nitrogen 14 10 - 20 mg/dL [facility] Creatinine 0.52(L) 0.80 - 1.50 mg/dL [facility] Sodium 143 135 - 145 mmol/L [facility] Potassium 3.6 3.5 - 5.0 mmol/L [facility] Comment: Please note: ??Patients with WBC >100,000 may have falsely elevated Potassium levels. ??For accurate Potassium quantification in these patients send serum separator tube (gold top) for subsequent determinations. ??Contact the Clinical Chemistry Laboratory if there are any questions. Chloride 107 98 - 107 mmol/L [facility] Carbon Dioxide 27 22 - 31 mmol/L [facility] Anion Gap 9 5 - 15 mmol/L [facility] Calcium 8.8 8.5 - 10.5 mg/dL [facility] Est Glomerular Filtration Rate 118 >=60 mL/min/1. 73 m?? [facility] Comment: This patient's estimated GFR [...] Lab Edwina Barclay MD CHEMISTRY ORDERABLES [facility] [place] [address] * Differential, Automated (03/19/2024 3:45 AM EDT) [facility] Neutrophil % 55.9 % [facility] Neutrophil Absolute 2.52 1.70 - 6.10 x10(3)/[facility] Lymph % 27.1 % [facility] Lymphocytes Abs 1.2 0.9 - 3.2 x10(3)/[facility] Monocyte % 11.5 % [facility] Monocyte Abs 0.5 0.3 - 0.9 x10(3)/[facility] Eos % 4.9 % [facility] Eosinophils Abs 0.2 0.0 - 0.4 x10(3)/[facility] Basophil % 0.4 % [facility] Baso Absolute 0.0 0.0 - 0.1 x10(3)/[facility] Immature Gran % 0.20 % [facility] Comment: Immature granulocytes(IG's)percentage and absolute count will include metamyelocytes, myelocytes, and promyelocytes. Blood smears from CBCs yielding IG's will be scanned manually for concordance. If this scan disagrees with the automated IG or if promyelocytes are noted, a manual differential will be performed. Immature Gran Absolute 0.01 0.00 - 0.04 x10(3)/[facility] Blood 03/19/2024 3:45 AM EDT 03/19/2024 3:52 AM EDT Narrative Resulting Agency Comment Spec In Lab Edwina Barclay MD HEMATOLOG Y ORDERABLES [facility] [place] [address] * (ABNORMAL) Hemogram (03/19/2024 3:45 AM EDT) [facility] White Blood Cell 4.5 4.0 - 9.5 x10(3)/mc L [facility] Red Blood Cell 3.61(L) 4.58 - 5.54 x10(6)/mc L [facility] Hemoglobin 10.3(L) 13.7 - 16.5 g/dL [facility] Hematocrit 31.8(L) 40.5 - 48.5 % [facility] Mean Cell Volume 88.1 82.9 - 93.1 fL [facility] Mean Cell Hemoglobin 28.5 27.5 - 32.1 pg [facility] Mean Cell Hemoglobin Concentration 32.4 32.0 - 35.7 g/dL [facility] Platelet 133(L) 145 - 357 x10(3)/mc L [facility] RDW Standard Deviation 49.8(H) 36.0 - 45.0 [facility] RDW coefficient of variation 15.4(H) 11.4 - 13.8 % [facility] Mean Platelet Volume 11.0 7.6 - 12.9 fL [facility] NRBC% auto 0.0 % [facility] NRBC Absolute 0.000 0.000 - 0.000 x10(3)/mc L [facility] Blood 03/19/2024 3:45 AM EDT 03/19/2024 3:52 AM EDT Narrative Resulting Agency Comment Spec In Lab Edwina Barclay MD HEMATOLOG Y ORDERABLES Performing Organization Address City/State/[facility] Co de Phone Number [facility] [place] [address] * (ABNORMAL) Basic Metabolic Panel (non-fasting) (03/19/2024 3:45 AM EDT) Glucose 86 65 - 199 mg/dL [facility] Comment:Diabetes: >=200 mg/d L plus symptoms Blood Urea Nitrogen 14 10 - 20 mg/dL [facility] Creatinine 0.52(L) 0.80 - 1.50 mg/dL [facility] Sodium 144 135 - 145 mmol/L [facility] Potassium 3.5 3.5 - 5.0 mmol/L [facility] Comment: Please note: ??Patients with WBC >100,000 may have falsely elevated Potassium levels. ??For accurate Potassium quantification in these patients send serum separator tube (gold top) for subsequent determinations. ??Contact the Clinical Chemistry Laboratory if there are any questions. Chloride 107 98 - 107 mmol/L [facility] Carbon Dioxide 27 22 - 31 mmol/L [facility] Anion Gap 10 5 - 15 mmol/L [facility] Calcium 9.0 8.5 - 10.5 mg/dL [facility] Est Glomerular Filtration Rate 118 >=60 mL/min/1. 73 m?? [facility] Comment: This patient's estimated GFR [...] and symptoms in addition to eGFR. Blood 03/19/2024 3:45 AM EDT 03/19/2024 3:52 AM EDT Narrative Resulting Agency Comment Spec In Lab Edwina Barclay MD CHEMISTRY ORDERABLES [facility] [place] [address] * (ABNORMAL) CT Abdomen & Pelvis wo Contrast (03/18/2024 5:39 PM EDT) WORKSTATION ID [id number] RAD Anatomical Region Laterality Modality Abdomen, Pelvis Computed Tomogra phy Impressions 03/19/2024 9:21 AM EDT 1. ??Unexpected finding concerning for retained foreign body or wire fragment within the right collecting system. 2. ??Increased number of nonobstructing right nephrolithiasis. 3. ??Increased conspicuity of right perinephric stranding. Pyelonephritis not excluded. Correlation to urinalysis recommended. 4. ??Nonobstructing dependent cholelithiasis. 5. ??Stable morphology of descending colostomy and oversewn long segment rectosigmoid stump that remains distended with fecal material. 6. ??Phlegmon versus soft tissue scarring at site of right ischial decubitus ulcer. Thank you for letting us participate in the care of this patient. ??If you are a health care provider and have any questions regarding this report, please contact the number below. ??For patients who have questions please contact the health respiratory care assistant that requested your imaging first. ? Narrative 03/19/2024 9:21 AM EDT EXAMINATION: CT ABDOMEN AND PELVIS WO CONTRAST CLINICAL HISTORY: proteus in the urine, prior h/o stones. reassess current stone burden TECHNIQUE: Helical CT of the abdomen and pelvis without intravenous contrast. Oral contrast was not administered. Multiplanar reformatted images were generated. COMPARISON: December 22, 2023 FINDINGS: The absence of intravenous contrast limits the evaluation of solid viscera and vasculature. Lower chest: Bibasilar airless lung Liver: Normal contour and attenuation. Bile ducts: Nondilated. Gallbladder: Dependent nonobstructing cholelithiasis Pancreas: Normal contour without ductal dilatation. Spleen: Stable mild splenomegaly Adrenals: Normal contours Right kidney/ureter: Right internal double-J ureteral stent withdrawn. 3 cm linear radiopaque body within the central right collecting system. Increased number of right nonobstructing nephrolithiasis. Mild increase in right perinephric stranding. No calcification projected over the expected course of the right ureter. Left kidney/ureter: No collecting system dilation or calculi. Urinary Bladder: Suprapubic catheter present. Bladder is decompressed. Vasculature: No abdominal aortic aneurysm. Lymph Nodes: Subcentimeter retroperitoneal lymphadenopathy Bowel: Undigested tablet within the nonthickened nondilated colon. Stomach is partially distended with ingested material. Normal caliber small bowel. Descending colostomy. Stable morphology to the oversewn long rectosigmoid stump that remains distended with fecal material. Peritoneum and retroperitoneum: No free fluid or loculated fluid collection. No pneumoperitoneum. No mesenteric inflammation. Abdominal wall: Midline scarring. Left stoma. Mild body wall edema. Soft tissue thickening without fluid collection overlying the right ischial tuberosity. Reproductive organs: Normal contours. Osseous structures: Stable right ischial calcification that extends into the soft tissues at the right hip joint. Stable mixed cortical lucency and sclerosis at bilateral ischial tuberosities. Stable right hip joint effusion. Stable lucency at S3. Stable lucencies in the iliac wings bilaterally with stable right posterior iliac cortical erosion. At MRI of December 2023 these were shown to reflect islands of prominent fatty marrow. Resulting Agency Comment Unexpected Finding Evgeny E Galbayron DO IMG CT ORDERABLES * Differential, Automated (03/18/2024 6:00 AM EDT) Neutrophil % 59.0 % [facility] Neutrophil Absolute 2.99 1.70 - 6.10 x10(3)/[facility] Lymph % 22.3 % [facility] Lymphocytes Abs 1.1 0.9 - 3.2 x10(3)/[facility] Monocyte % 14.2 % [facility] Monocyte Abs 0.7 0.3 - 0.9 x10(3)/[facility] Eos % 3.7 % [facility] Eosinophils Abs 0.2 0.0 - 0.4 x10(3)/[facility] Basophil % 0.6 % [facility] Baso Absolute 0.0 0.0 - 0.1 x10(3)/[facility] Immature Gran % 0.20 % [facility] Comment: Immature granulocytes(IG's)percentage and absolute count will include metamyelocytes, myelocytes, and promyelocytes. Blood smears from CBCs yielding IG's will be scanned manually for concordance. If this scan disagrees with the automated IG or if promyelocytes are noted, a manual differential will be performed. Immature Gran Absolute 0.01 0.00 - 0.04 x10(3)/[facility] Blood 03/18/2024 6:00 AM EDT 03/18/2024 6:20 AM EDT Narrative Resulting Agency Comment Spec In Lab Edwina Barclay MD HEMATOLOG Y ORDERABLES [facility] [place] [address] * (ABNORMAL) Hemogram (03/18/2024 6:00 AM EDT) White Blood Cell 5.1 4.0 - 9.5 x10(3)/ L [facility] Red Blood Cell 3.57(L) 4.58 - 5.54 x10(6)/mc L [facility] Hemoglobin 10.0(L) 13.7 - 16.5 g/dL [facility] Hematocrit 31.5(L) 40.5 - 48.5 % [facility] Mean Cell Volume 88.2 82.9 - 93.1 fL [facility] Mean Cell Hemoglobin 28.0 27.5 - 32.1 pg [facility] Mean Cell Hemoglobin Concentration 31.7(L) 32.0 - 35.7 g/dL [facility] Platelet 122(L) 145 - 357 x10(3)/mc L [facility] RDW Standard Deviation 49.8(H) 36.0 - 45.0 fL [facility] RDW coefficient of variation 15.3(H) 11.4 - 13.8 % [facility] Mean Platelet Volume 11.1 7.6 - 12.9 fL [facility] NRBC% auto 0.0 % [facility] NRBC Absolute 0.000 0.000 - 0.000 x10(3)/mc L [facility] Blood 03/18/2024 6:00 AM EDT 03/18/2024 6:20 AM EDT Narrative Resulting Agency Comment Spec In Lab Edwina Barclay MD HEMATOLOG Y ORDERABLES Performing Organization Address City/[facility]/ZIP Co de Phone Number [facility] [place] [address] * Vancomycin Level, Random (03/18/2024 6:00 AM EDT) Pathologist [facility] Vancomycin, Random 6.5 mg/L [facility] Comment: This level is for determination of the patient's vancomycin pkqh-pibqm-ovk-curve (AUC) value. Contact the inpatient pharmacy for interpretation. Blood 03/18/2024 6:00 AM EDT 03/18/2024 6:20 AM EDT Edwina Barclay MD CHEMISTRY ORDERABLES Performing Organization Address [facility] Co de Phone Number [facility] [place] [address] * (ABNORMAL) Basic Metabolic Panel (non-fasting) (03/18/2024 6:00 AM EDT) Glucose 82 65 - 199 mg/dL [facility] Comment:Diabetes: >=200 mg/d L plus symptoms Blood Urea Nitrogen 13 10 - 20 mg/dL [facility] Creatinine 0.59(L) 0.80 - 1.50 mg/dL [facility] Sodium 143 135 - 145 mmol/L [facility] Potassium 3.4(L) 3.5 - 5.0 mmol/L [facility] Comment: Please note: ??Patients with WBC >100,000 may have falsely elevated Potassium levels. ??For accurate Potassium quantification in these patients send serum separator tube (gold top) for subsequent determinations. ??Contact the Clinical Chemistry Laboratory if there are any questions. Chloride 107 98 - 107 mmol/L [facility] Carbon Dioxide 25 22 - 31 mmol/L [facility] Anion Gap 11 5 - 15 mmol/L [facility] Calcium 8.7 8.5 - 10.5 mg/dL [facility] Est Glomerular Filtration Rate 114 >=60 mL/min/1. 73 m?? [facility] Comment: This patient's estimated GFR [...] and symptoms in addition to eGFR. Blood 03/18/2024 6:00 AM EDT 03/18/2024 6:20 AM EDT Narrative Resulting Agency Comment Spec In Lab Edwina Barclay MD CHEMISTRY ORDERABLES Performing Organization Address City/State/[facility] Co de Phone Number [facility] [place] [address] * (ABNORMAL) Urine culture (03/16/2024 9:18 PM EDT) Urine Culture 10,000-49,0 00 cfu/ml Proteus mirabilis(A ) [facility] Organism Proteus mirabilis(A ) [facility] Indwelling Catheter Urine 03/16/2024 9:18 PM EDT 03/16/2024 11:58 PM EDT Narrative Resulting Agency Comment Spec In Lab Organism Antibiotic Method Susceptibility Proteus mirabilis Amikacin VITEK 2 METHOD Sensitive Proteus mirabilis Ampicillin + Sulbactam VITEK 2 METHO D Sensitive Proteus mirabilis Aztreonam VITEK 2 METHOD Sensitive Proteus mirabilis Cefazolin VITEK 2 METHOD Sensitive Proteus mirabilis Cefepime VITEK 2 METHOD <=1: Sensitive Proteus mirabilis Ceftazidime VITEK 2 METHOD <=1: Sensitive Proteus mirabilis Ceftriaxone VITEK 2 METHOD Sensitive Proteus mirabilis Ertapenem VITEK 2 METHOD Sensitive Proteus mirabilis Gentamicin VITEK 2 METHOD Sensitive Proteus mirabilis Levofloxacin VITEK 2 METHOD Resistant Comment: Levofloxacin and Ciprofloxacin may not adequately treat infections in critically ill patients even when isolates test susceptible in the laboratory. Contact Infectious Disease before using in critically ill patients. Proteus mirabilis Meropenem VITEK 2 METHOD 0.5: Sensitive Proteus mirabilis Nitrofurantoin VITEK 2 METHOD Resistant Proteus mirabilis Piperacillin/Tazobactam VITEK 2 METH OD <=4: Sensitive Proteus mirabilis Tetracycline VITEK 2 METHOD Resistant Proteus mirabilis Tobramycin VITEK 2 METHOD Sensitive Proteus mirabilis Trimethoprim/Sulfa VITEK 2 METHOD Resistant Shirley Servin MD MICROBIOLOGY - GENER AL ORDERABLES [facility] [place] [address] * (ABNORMAL) Urinalysis Microscopic Exam (03/16/2024 9:18 PM EDT) RBC, Urine 1 0 - 3 /HPF [facility] WBC, Urine >100(H) 0 - 3 /HPF [facility] WBC Clumps, Urine Occasiona l(A) None /HPF [facility] Comment: Interpret results with caution, microscopic results are from suboptimal specimen volume Bacteria, Urine Few(A) None /HPF [facility] Squamous Epithelial Cells Raw Data, Urine 2 <=4 /HPF [facility] Indwelling Catheter Urine 03/16/2024 9:18 PM EDT 03/16/2024 9:34 PM EDT Narrative Resulting Agency Comment Spec In Lab Shirley Servin MD URINE ORDERABLES Performing Organization Address City/[facility]/ZIP Co de Phone Number [facility] [place] [address] * (ABNORMAL) Urinalysis with reflex Culture (03/16/2024 9:18 PM EDT) Glucose, Urine Dipstick Negative Negative mg/dL [facility] Protein, Urine Dipstick Negative Negative mg/dL [facility] Bilirubin, Urine Dipstick Negative Negative mg/dL [facility] Comment: Clinical correlation required for positive Urine Bilirubin results as false positive may occur with some drugs and drug related products. If a false positive is suspected a serum total bilirubin should be considered if clinically indicated. Urobilinogen, Urine Dipstick Normal Normal mg/dL [facility] pH, Urn (dipstick) 6.5 5.0 - 8.0 [facility] Blood, Urine Dipstick Small(A) Negative mg/dL [facility] Ketone, Urine Dipstick Negative Negative mg/dL [facility] Nitrite, Urine Dipstick Negative Negative [facility] Leukocytes, Urine Dipstick Large(A) Negative [facility] Appearance, Urine Dipstick Cloudy(A) Clear [facility] Specific [place] Urine Automated 1.006 1.005 - 1.030 [facility] Color, Urine Dipstick Yellow Yellow [facility] Reflex to Culture Yes [facility] Indwelling Catheter Urine 03/16/2024 9:18 PM EDT 03/16/2024 9:34 PM EDT Narrative Resulting Agency Comment Spec In Lab Jorge A Decker DO URINE ORDERABLES Performing Organization Address City/[facility]/ZIP Co de Phone Number [facility] [place] [address] * Sedimentation rate (03/16/2024 8:24 PM EDT) Pathologist [facility] Sedimentation Rate Automated 35 2 - 37 mm/hr [facility] Comment: Effective October 12, 2019 new capillary photometric technology has resulted in a change in reference ranges. It is recommended that each ESR result be reviewed with its own age appropriate reference range. Blood Venous Draw / Unknown 03/16/2024 8:24 PM EDT 03/16/2024 8:32 PM EDT Narrative Resulting Agency Comment Spec In Lab Shirley Servin MD HEMATOLOGY ORDERABLE S [facility] [place] [address] * (ABNORMAL) Differential, Automated (03/16/2024 8:24 PM EDT) [facility] Neutrophil % 72.0 % [facility] Neutrophil Absolute 6.31(H) 1.70 - 6.10 x10(3)/mc L [facility] Lymph % 17.4 % [facility] Lymphocytes Abs 1.5 0.9 - 3.2 x10(3)/mc L [facility] Monocyte % 9.7 % [facility] Monocyte Abs 0.8 0.3 - 0.9 x10(3)/mc L [facility] Eos % 0.2 % [facility] Eosinophils Abs 0.0 0.0 - 0.4 x10(3)/mc L [facility] Basophil % 0.2 % [facility] Baso Absolute 0.0 0.0 - 0.1 x10(3)/mc L [facility] Immature Gran % 0.50 % [facility] Comment: Immature granulocytes(IG's)percentage and absolute count will include metamyelocytes, myelocytes, and promyelocytes. Blood smears from CBCs yielding IG's will be scanned manually for concordance. If this scan disagrees with the automated IG or if promyelocytes are noted, a manual differential will be performed. Immature Gran Absolute 0.04 0.00 - 0.04 x10(3)/ L [facility] Blood 03/16/2024 8:24 PM EDT 03/16/2024 8:32 PM EDT Narrative Resulting Agency Comment Spec In Lab Dedra Ibarra MD HEMATOLOGY ORDERABL ES [facility] [place] [address] * (ABNORMAL) Hemogram (03/16/2024 8:24 PM EDT) White Blood Cell 8.8 4.0 - 9.5 x10(3)/[facility]ORAT[facility] Red Blood Cell 3.56(L) 4.58 - 5.54 x10(6)/[facility] Hemoglobin 10.2(L) 13.7 - 16.5 g/dL [facility] Hematocrit 31.4(L) 40.5 - 48.5 % [facility] Mean Cell Volume 88.2 82.9 - 93.1 fL [facility] Mean Cell Hemoglobin 28.7 27.5 - 32.1 pg [facility] Mean Cell Hemoglobin Concentration 32.5 32.0 - 35.7 g/dL [facility] Platelet 117(L) 145 - 357 x10(3)/[facility]ATORY RDW Standard Deviation 51.6(H) 36.0 - 45.0 [facility]ORY RDW coefficient of variation 15.9(H) 11.4 - 13.8 % [facility] Mean Platelet Volume 11.4 7.6 - 12.9 fL [facility] NRBC% auto 0.0 % [facility] NRBC Absolute 0.000 0.000 - 0.000 x10(3)/ L [facility] Blood 03/16/2024 8:24 PM EDT 03/16/2024 8:32 PM EDT Narrative Resulting Agency Comment Spec In Lab Dedra Ibarra MD HEMATOLOGY ORDERABL ES [facility] [place] [address] * (ABNORMAL) BLOOD GAS 2 VENOUS (03/16/2024 6:31 PM EDT) pH, Venous 7.40 7.32 - 7.42 [facility] PCO2, Venous 41 41 - 51 mmHg [facility] PO2, Venous 38 25 - 40 mmHg [facility] Bicarbonate, Venous 25.2 mmol/L [facility] Base Excess, Venous 0.5 mmol/L [facility] Hgb Blood Gas 11.1(L) 13.7 - 16.5 g/dL [facility] Oxyhemoglobin, Venous 70.8 % [facility] Carboxyhemoglob in, Venous 1.0 % [facility] Comment: Nonsmokers: 0.5-1.5% COHB Smokers: Variable, but usually less than 10% Toxic: 20-30% COHB Lethal: Greater than 60% COHB Methemoglobin, Venous 0.7 <=1.5 % [facility] Na Whole Blood 138 135 - 145 mmol/L [facility] K Whole Blood 3.8 3.5 - 5.0 mmol/L [facility] Comment: Please note: Patients with WBC >100,000 may have falsely elevated Potassium levels. Contact the Clinical Chemistry Laboratory if there are any questions. ICa Whole Blood 1.18 1.15 - 1.33 mmol/L [facility] Comment: Note: ??Total bilirubin higher than 20 mg/dL may lead to falsely low ionized calcium. CL Whole Blood 104 98 - 107 mmol/L [facility] Gluc Whole Bld 97 65 - 199 mg/dL [facility] Comment:Diabetes: >=200 mg/d L plus symptoms Lactate WB 1.0 0.5 - 2.2 mmol/L [facility] Blood Gas Source Venous [facility] Blood 03/16/2024 6:31 PM EDT 03/16/2024 6:31 PM EDT Dedra Ibarra MD POINT OF CARE TEST ORDERABLES [facility] [place] [address] * Respiratory Panel PCR (03/16/2024 6:26 PM EDT) Respiratory Panel Source [employer] [facility] Respiratory Panel PCR Negative Negative [facility] Comment: Respiratory Panels are performed on the [employer], using multiplexed PCR nucleic acid detection. ??Negative results do not preclude respiratory infection and should not be used as the sole basis for diagnosis, treatment or other management decisions. Adenovirus Not Detected Not Detected [facility] Coronavirus HKU1 Not Detected Not Detected [facility] Coronavirus NL63 Not Detected Not Detected [facility] Coronavirus 229E Not Detected Not Detected [facility] Coronavirus OC43 Not Detected Not Detected [facility] SARS-CoV-2 Not Detected Not Detected [facility] Comment: Testing for SARS-CoV-2 (Severe acute respiratory syndrome coronavirus 2) to aid in the diagnosis of COVID-19 is performed using the [employer] Respiratory Panel 2.1 (Pond[employer]) as authorized by the FDA issued Emergency Use Authorization (EUA). This panel also tests for multiple other viral and bacterial pathogens. This assay is intended for In-vitro Diagnostic (IVD) use with nasopharyngeal swabs in viral transport media. The assay is performed based on the instructions for use and additional guidance provided by the FDA. Testing is performed in laboratories within the [facility], each of which is certified under the Clinical Laboratory Improvement Amendments of 1988 (CLIA), 42 U.S.C. section 263a, to perform high-complexity tests. Assay performance has been verified according to clinical laboratory regulatory requirements. The test result for SARS-CoV-2 provided above should be interpreted in combination with the clinical observation, patient history and epidemiological information. For testing of asymptomatic individuals, assay performance characteristics and clinical utility have not been evaluated. ??A result of Not Detected indicates that the viral RNA target is not present but does not preclude SARS-CoV-2 infection. False negative results may occur if a specimen is improperly collected, transported or handled; if amplification inhibitors are present; or if inadequate numbers of viral particles are present in the specimen. When a diagnostic test is negative, the possibility of a false negative result should be considered in the context of a patient's recent exposures and the presence of clinical signs and symptoms consistent with COVID-19. A result of Detected suggests a current or recent infection. Positive and negative predictive values for this test are dependent on disease prevalence. A result of Invalid indicates the inability to conclusively determine the presence or absence of SARS-CoV-2 RNA in the sample which can be due to a variety of factors. ??Collection of a new sample for repeat testing is recommended in the case of an invalid result. CDC COVID-19 criteria for testing on human specimens and clinical management guidance information are available at the CDC Coronavirus Disease 2019 (COVID-19) webpage under Information for Healthcare Professionals (https://www.cdc.gov/coronavirus/2019-ncov/hcp/index.html). Additional information about this and other EUA tests can be found in provider and patient fact sheets at the following FDA website: https://www.fda.gov/medical-devices/pzqdxxofhdq-xxqhdoh-2079-ztxwy-69-kggsurptb- use-a gabacsgtlqsul-fcxyfjo-umpquet/mmjjw-wlnonarjfoy-gpmb Human Metapneumovirus Not Detected Not Detected [facility] Human Rhinovirus/Enterov irus Not Detected Not Detected [facility] Influenza A Not Detected Not Detected [facility] Influenza B Not Detected Not Detected [facility] Parainfluenza 1 Not Detected Not Detected [facility] Parainfluenza 2 Not Detected Not Detected [facility] Parainfluenza 3 Not Detected Not Detected [facility] Parainfluenza 4 Not Detected Not Detected [facility] Respiratory Syncytial Virus Not Detected Not Detected [facility] Chlamydophila pneumoniae Not Detected Not Detected [facility] Mycoplasma pneumoniae Not Detected Not Detected [facility] Nasopharyngeal Swab 03/16/20 6:26 PM EDT 03/16/2024 6:54 PM EDT Narrative Resulting Agency Comment Spec In Lab Jorge A Decker DO MICROBIOLOGY - GENER AL ORDERABLES Performing Organization Address [facility] Co de Phone Number [facility] [place] [address] * Blood culture (03/16/2024 6:25 PM EDT) Blood Culture No growth at 5 days. [facility] Blood 03/16/2024 6:25 PM EDT 03/16/2024 6:54 PM EDT Comment:port Narrative Resulting Agency Comment Spec In Lab Jorge A Jeronimo MICROBIOLOGY - BLOOD ORDERABLES Performing Organization Address [facility] de Phone Number [facility] [place] [address] * XR Chest One View (03/16/2024 5:59 PM EDT) WORKSTATION ID [id number] DH RAD Anatomical Region Laterality Modality Chest N/A Digital Radiogra phy Impressions 03/16/2024 6:17 PM EDT No evidence of pneumonia or other acute cardiopulmonary process. Thank you for letting us participate in the care of this patient. ??If you are a health care provider and have any questions regarding this report, please contact the number below. ??For patients who have questions please contact the health respiratory care assistant that requested your imaging first. ? Narrative 03/16/2024 6:17 PM EDT EXAMINATION: XR CHEST ONE VIEW CLINICAL HISTORY: fever, shortness of breath TECHNIQUE: 1 view of the chest COMPARISON: 12/22/2023, 12/12/2023 FINDINGS: Left-sided medication port, tubing continuous, tip at the superior cavoatrial junction unchanged. Lungs are well-expanded. Left lower lobe atelectasis/collapse seen on the previous 2 series is not appreciable on today's exam. No airspace consolidation. No pleural effusion or pneumothorax. Cardiac and mediastinal contours normal. No central vascular congestion or interstitial edema. Partially visualized cervical and thoracic fusion hardware grossly intact and unchanged from prior. No acute bone abnormality. Procedure Note Jose Joaquin MD - 03/16/2024 EXAMINATION: XR CHEST ONE VIEW CLINICAL HISTORY: fever, shortness of breath TECHNIQUE: 1 view of the chest COMPARISON: 12/22/2023, 12/12/2023 FINDINGS: Left-sided medication port, tubing continuous, tip at the superiorcavoatrial junction unchanged. Lungs are well-expanded. Left lower lobe atelectasis/collapse seen onthe previous 2 series is not appreciable on today's exam. No airspaceconsolidation. No pleural effusion or pneumothorax. Cardiac and mediastinal contours normal. No central vascular congestionor interstitial edema. Partially visualized cervical and thoracic fusion hardware grossly intactand unchanged from prior. No acute bone abnormality. IMPRESSION No evidence of pneumonia or other acute cardiopulmonary process. Thank you for letting us participate in the care of this patient. If youare a health care provider and have any questions regarding this report,please contact the number below. For patients who have questions please contactthe health respiratory care assistant that requested your imaging first. Jorge A Decker DO IMG DX ORDERABLES * EKG 12 Lead (03/16/2024 5:49 PM EDT) Ventricular rate 83 BPM MUSE SYSTEM Atrial Rate 83 BPM MUSE SYSTEM P-R Interval 154 ms MUSE SYSTEM QRS Duration 110 ms MUSE SYSTEM Q-T Interval 354 ms MUSE SYSTEM QTC Calculated (Bezet) 415 ms MUSE SYSTEM Calculated P [place] 58 degrees MUSE SYSTEM Calculated R [place] -12 degrees MUSE SYSTEM Calculated T [place] 51 degrees MUSE SYSTEM INTERPRETATION Normal sinus rhythm Incomplete right bundle branch block Borderline ECG When compared with ECG of 06-NOV-2020 13:04, Incomplete right bundle branch block is now Present Confirmed by Salome Nunez ([id number]) on 03/19/2024 9:43:25 AM MUSE SYSTEM 03/16/2024 5:49 PM EDT 03/19/2024 9:43 AM EDT Jorge A Decker DO ECG ORDERABLES MUSE SYSTEM * Lyme Confirmation by WOO (03/16/2024 5:43 PM EDT) Lyme IgG WOO Negative Negative [facility] Lyme IgM WOO Negative Negative [facility] Lyme Conf Interp Serologic response to B. burgdorferi not detected [facility] Comment: Please note that as of 03/10/2023 that this testing is performed by the [facility] at [facility] This change in testing location is associated with a change in testing methodology. Blood 03/16/2024 5:43 PM EDT 03/17/2024 7:33 AM EDT Narrative Resulting Agency Comment Spec In Lab Shirley Servin MD IMMUNOLOGY ORDERABLE S [facility] [place] [address] * (ABNORMAL) CRP, acute inflammation (03/16/2024 5:43 PM EDT) C-Reactive Protein 191.7(H) <=4.9 mg/L [facility] Blood Venous Draw / Unknown 03/16/2024 5:43 PM EDT 03/16/2024 6:38 PM EDT Narrative Resulting Agency Comment Spec In Lab Shirley Servin MD CHEMISTRY ORDERABLES Performing Organization Address [facility] Co de Phone Number [facility] [place] [address] * APTT (03/16/2024 5:43 PM EDT) Partial Thromboplastin Time 30 25 - 37 sec [facility] Comment: The PTT is NOT appropriate for heparin monitoring. Use the Anti-Xa level for heparin monitoring (HEP UFH) or LMWH monitoring (HEP LMW). A PTT less than 37 seconds generally indicates adequate hemostasis. Blood 03/16/2024 5:43 PM EDT 03/16/2024 6:35 PM EDT Narrative Resulting Agency Comment Spec In Lab Jorge A Decker DO HEMATOLOGY ORDERABLE S Performing Organization Address [facility] Co de Phone Number [facility] [place] [address] * (ABNORMAL) Prothrombin Time (03/16/2024 5:43 PM EDT) Prothrombin Time 13.6(H) 9.4 - 12.5 sec [facility] International Normalization Ratio 1.2 [facility] Comment: An INR <2.0 indicates adequate procoagulant activity for hemostasis in most patients without underlying bleeding disorders, though the INR may not adequately reflect hemostatic capacity in patients with liver disease and synthetic impairment. The recommended target INR range for therapeutic anticoagulation is 2.0 ? 3.0 for most applications, though lower and higher ranges may be appropriate depending on clinical circumstances. Blood 03/16/2024 5:43 PM EDT 03/16/2024 6:35 PM EDT Narrative Resulting Agency Comment Spec In Lab Jorge A Decker DO HEMATOLOGY ORDERABLE S Performing Organization Address City/[facility]/ZIP Co de Phone Number [facility] [place] [address] * (ABNORMAL) Lyme IgG & IgM Antibody (03/16/2024 5:43 PM EDT) Pathologist [facility] Lyme Antibody Presumptive Pos(A) Negative [facility] Lyme Ab Comment Possible Lyme infection. Confirmation to follow. [facility] Comment: Please note that as of 03/10/2023 that this testing is performed by the [facility] Laboratory at [facility]. This change in testing location is associated with a change in testing methodology. Blood 03/16/2024 5:43 PM EDT 03/17/2024 7:33 AM EDT Narrative Resulting Agency Comment Spec In Lab Jorge A Decker DO IMMUNOLOGY ORDERABLE S Performing Organization Address City/[facility]/ZIP Co de Phone Number [facility] [place] [address] * Acute Tick Borne Infection Panel (03/16/2024 5:43 PM EDT) [facility] Anaplasma phagocytophilum PCR Not Detected Not Detected [facility] Comment: INTERPRETATION: A positive result indicates DNA was detected from Anaplasma phagocytophilum. A negative result indicates the absence of any detectable DNA from Anaplasma phagocytophilum. METHODS: This test was performed using multiplex real-time PCR to interrogate DNA isolated from whole blood for the groEL gene found in Anaplasma phagocytophilum. The sensitivity of the assay is approximately 10 genome equivalents per PCR reaction. LIMITATIONS AND DISCLAIMERS: Although unlikely, rare variants (known or unknown), have the potential to interfere with the performance of this test, producing false negative or false positive results. Additionally, it is possible that this test may provide positive results for species closely related to the ones tested for in this assay. When results are not consistent with other clinical observations or test results, additional testing should be considered. This test detects DNA sequences and cannot discriminate between live and organisms. This test was developed and its performance characteristics determined by the [facility] [employer] [facility] at [facility]. It has not been cleared or approved by the FDA. The laboratory is regulated under CLIA as qualified to perform high-complexity testing. This test is used for clinical purposes. It should not be regarded as investigational or for research. Ehrlichia chaffeensis PCR Not Detected Not Detected [facility] Comment: INTERPRETATION: A positive result indicates DNA was detected from Ehrlichia chaffeensis. A negative result indicates the absence of any detectable DNA from Ehrlichia chaffeensis. METHODS: This test was performed using multiplex real-time PCR to interrogate DNA isolated from whole blood for the 16S rRNA gene found in Ehrlichia chaffeensis. The sensitivity of the assay is approximately 10 genome equivalents per PCR reaction. LIMITATIONS AND DISCLAIMERS: Although unlikely, rare variants (known or unknown), have the potential to interfere with the performance of this test, producing false negative or false positive results. Additionally, it is possible that this test may provide positive results for species closely related to the ones tested for in this assay. When results are not consistent with other clinical observations or test results, additional testing should be considered. This test detects DNA sequences and cannot discriminate between live and organisms. This test was developed and its performance characteristics determined by the [employer] [facility] at [facility]. It has not been cleared or approved by the FDA. The laboratory is regulated under CLIA as qualified to perform high-complexity testing. This test is used for clinical purposes. It should not be regarded as investigational or for research. Babesia microti PCR Not Detected Not Detected [facility] Comment: INTERPRETATION: A positive result indicates DNA was detected from Babesia microti. A negative result indicates the absence of any detectable DNA from Babesia microti. METHODS: This test was performed using multiplex real-time PCR to interrogate DNA isolated from whole blood for the 18S rRNA gene found in Babesia microti. The sensitivity of the assay is approximately 10 genome equivalents per PCR reaction. LIMITATIONS AND DISCLAIMERS: Although unlikely, rare variants (known or unknown), have the potential to interfere with the performance of this test, producing false negative or false positive results. Additionally, it is possible that this test may provide positive results for species closely related to the ones tested for in this assay. When results are not consistent with other clinical observations or test results, additional testing should be considered. This test detects DNA sequences and cannot discriminate between live and organisms. This test was developed and its performance characteristics determined by the [facility] at [facility]. It has not been cleared or approved by the FDA. The laboratory is regulated under CLIA as qualified to perform high-complexity testing. This test is used for clinical purposes. It should not be regarded as investigational or for research. Borrelia miyamotoi PCR Not Detected Not Detected [facility] Comment: INTERPRETATION: A positive result indicates DNA was detected from Borrelia miyamotoi. A negative result indicates the absence of any detectable DNA from Borrelia miyamotoi. METHODS: This test was performed using multiplex real-time PCR to interrogate DNA isolated from whole blood for the flaB gene found in Borrelia miyamotoi. The sensitivity of the assay is approximately 10 genome equivalents per PCR reaction. LIMITATIONS AND DISCLAIMERS: Although unlikely, rare variants (known or unknown), have the potential to interfere with the performance of this test, producing false negative or false positive results. Additionally, it is possible that this test may provide positive results for species closely related to the ones tested for in this assay. When results are not consistent with other clinical observations or test results, additional testing should be considered. This test detects DNA sequences and cannot discriminate between live and organisms. This test was developed and its performance characteristics determined by the [employer] [facility] at [facility]. It has not been cleared or approved by the FDA. The laboratory is regulated under CLIA as qualified to perform high-complexity testing. This test is used for clinical purposes. It should not be regarded as investigational or for research. Blood 03/16/2024 5:43 PM EDT 03/17/2024 8:07 AM EDT Narrative Resulting Agency Comment Spec In Lab Jorge A Decker DO MOLECULAR ORDERABLES [facility] [place] [address] * Magnesium (03/16/2024 5:43 PM EDT) Magnesium 0.78 0.69 - 1.07 mmol/L [facility] Blood 03/16/2024 5:43 PM EDT 03/16/2024 6:35 PM EDT Narrative Resulting Agency Comment Spec In Lab Jorge A Decker DO CHEMISTRY ORDERABLES Performing Organization Address City/[facility]/ZIP Co de Phone Number [facility] [place] [address] * Blood culture (03/16/2024 5:43 PM EDT) Blood Culture No growth at 5 days. [facility] Blood 03/16/2024 5:43 PM EDT 03/16/2024 6:53 PM EDT Comment:L wrist Narrative Resulting Agency Comment Spec In Lab Jorge A Decker DO MICROBIOLOGY - BLOOD ORDERABLES Performing Organization Address [facility] Co de Phone Number [facility] [place] [address] * (ABNORMAL) Basic Metabolic Panel (non-fasting) (03/16/2024 5:43 PM EDT) Glucose 107 65 - 199 mg/dL [facility] Comment:Diabetes: >=200 mg/d L plus symptoms Blood Urea Nitrogen 22(H) 10 - 20 mg/dL [facility] Creatinine 0.64(L) 0.80 - 1.50 mg/dL [facility] Sodium 138 135 - 145 mmol/L [facility] Potassium 4.4 3.5 - 5.0 mmol/L [facility] Comment: Please note: ??Patients with WBC >100,000 may have falsely elevated Potassium levels. ??For accurate Potassium quantification in these patients send serum separator tube (gold top) for subsequent determinations. ??Contact the Clinical Chemistry Laboratory if there are any questions. Chloride 103 98 - 107 mmol/L [facility] Carbon Dioxide 25 22 - 31 mmol/L [facility] Anion Gap 10 5 - 15 mmol/L [facility] Calcium 9.5 8.5 - 10.5 mg/dL [facility] Est Glomerular Filtration Rate 111 >=60 mL/min/1. 73 m?? [facility] Comment: This patient's estimated GFR [...] and symptoms in addition to eGFR. Blood 03/16/2024 5:43 PM EDT 03/16/2024 6:35 PM EDT Narrative Resulting Agency Comment Spec In Lab Jorge A Decker DO CHEMISTRY ORDERABLES [facility] [place] [address] documented in this encounter Visit Diagnoses Diagnosis Complicated UTI (urinary tract infection)- Primary Urinary tract infection, site not specified Urinary tract infection associated with catheterization of urinary tract, unspecified indwelling urinary catheter type, initial encounter Complicated UTI (urinary tract infection) Urinary tract infection, site not specified Quadriplegia Quadriplegia, unspecified Neurogenic bladder Neurogenic bladder, NOS documented in this encounter Admitting Diagnoses Diagnosis Complicated UTI (urinary tract infection) Urinary tract infection, site not specified documented in this encounter Administered Medications Inactive Administered Medications - up to 3 most recent administrations Medication Order MAR Action Action Date Dose Rate Site acetaminophen (Ofirmev) (1,000 mg/100 mL) infusion 1,000 mg 1,000 mg, Intravenous, at 400 mL/hr, Administer over 15 Minutes, EVERY 8 HOURS SCHEDULED, 3 doses, First dose (after last modification) on Thu03/16/24 at 1859, Last dose on Kathy 03/17/24 at 1400, Maximum dose of acetaminophen is 4,000 mg from all sources in 24 hours. When ordered for pain, acetaminophen should be given even when other ordered pain medications are indicated., Routine, Is ketorolac (Toradol) IV contraindicated? Yes, Can this patient tolerate oral medications or suppositories? No Given 03/17/2024 6:14 AM EDT 1,000 mg 400 mL/hr Given 03/16/2024 7:09 PM EDT 1,000 mg 400 mL/hr acetaminophen (Tylenol) tablet 975 mg 975 mg, Oral, EVERY 8 HOURS, First dose on Kathy 03/17/24 at 1512, Until Discontinued, Maximum dose of acetaminophen is 4,000 mg from all sources in 24 hours. When ordered for pain, acetaminophen should be given even when other ordered pain medications are indicated., Routine Given 03/20/2024 6:19 PM EDT 975 mg Given 03/20/2024 11:28 AM EDT 975 mg Given 03/19/2024 8:40 PM EDT 975 mg baclofen (Lioresal) tablet 20 mg 20 mg, Oral, 3 TIMES DAILY, First dose on Kathy 03/17/24 at 1500, Until Discontinued, Routine Given 03/21/2024 2:55 PM EDT 20 mg Given 03/21/2024 8:28 AM EDT 20 mg Given 03/20/2024 8:41 PM EDT 20 mg cefaDROXiL (Duricef) capsule 500 mg 500 mg, Oral, 2 TIMES DAILY, First dose on [facility] 03/19/24 at 1445, Until Discontinued, Routine, Indication for (Active or Suspected): Urinary Tract/Pyelonephritis Given 03/21/2024 8:28 AM EDT 500 mg Given 03/20/2024 8:40 PM EDT 500 mg Given 03/20/2024 8:44 AM EDT 500 mg ceFAZolin (Ancef) 1 g vial attached to sodium chloride 0.9% 50 mL Mini-Bag Plus 1 g, Intravenous, EVERY 8 HOURS, First dose on Thu03/18/24 at 1900, Until Discontinued, Administer over 30 Minutes, Indication for (Active or Suspected): Urinary Tract/Pyelonephritis New Bag 03/19/2024 11:44 AM EDT 1 g 100 mL/hr New Bag 03/19/2024 3:38 AM EDT 1 g 100 mL/hr New Bag 03/18/2024 6:38 PM EDT 1 g 100 mL/hr divalproex ER (Depakote ER) tablet 500 mg 500 mg, Oral, 2 TIMES DAILY, First dose (after last modification) on Kathy 03/17/24 at 2100, Until Discontinued, DO NOT SPLIT, CRUSH OR OPEN, Routine Given 03/21/2024 8:28 AM EDT 500 mg Given 03/20/2024 8:41 PM EDT 500 mg Given 03/20/2024 8:43 AM EDT 500 mg enoxaparin (Lovenox) (40 mg/0.4 mL) subcutaneous injection 40 mg 40 mg, Subcutaneous, NIGHTLY, First dose on Thu03/17/24 at 2100, Until Discontinued, Routine Given 03/20/2024 8:40 PM EDT 40 mg Given 03/19/2024 8:41 PM EDT 40 mg Given 03/18/2024 8:13 PM EDT 40 mg heparin (pf) (porcine) (100 units/mL) flush 5 mL syringe 500 Units 500 Units (5 mL), Intravenous, DAILY PRN, 1 dose, Starting on Thu03/21/24 at 1058, Until Thu03/21/24 at 1930, Line Care, Terminal Flush for de-accessing of Implantable Port, Routine LORazepam (Ativan) tablet 1 mg 1 mg, Oral, 3 TIMES DAILY PRN, Starting on Thu03/17/24 at 0700, Until Thu03/21/24 at 1930, Anxiety, Routine Given 03/20/2024 10:28 PM EDT 1 mg Given 03/19/2024 11:15 PM EDT 1 mg LORazepam (Ativan) tablet 1 mg 1 mg, Oral, 3 TIMES DAILY, First dose on Thu03/18/24 at 1645, Until Discontinued, Routine Given 03/21/2024 2:55 PM EDT 1 mg Given 03/21/2024 8:28 AM EDT 1 mg Given 03/20/2024 8:41 PM EDT 1 mg melatonin tablet 6 mg 6 mg, Oral, NIGHTLY PRN, Starting on Thu03/17/24 at 0700, Until Thu03/21/24 at 1930, Sleep, Sleep, Use first line, Routine Given 03/20/2024 10:28 PM EDT 6 mg Given 03/19/2024 11:14 PM EDT 6 mg mirabegron ER (Myrbetriq) tablet 25 mg 25 mg, Oral, DAILY, First dose on Thu03/17/24 at 0900, Until Discontinued, Do not crush, Routine, This product is restricted for continuation of outpatient regimen only. Is this a home medication? Yes Given 03/21/2024 8:28 AM EDT 25 mg Given 03/20/2024 8:43 AM EDT 25 mg Given 03/19/2024 9:23 AM EDT 25 mg ondansetron (pf) (Zofran) (2 mg/mL) injection 4 mg 4 mg, Intravenous, EVERY 8 HOURS PRN, Starting on Kathy 03/17/24 at 0700, Until 03/21/24 at 1930, Nausea, 4 mg,Oral,EVERY 8 HOURS PRN, Nausea,Vomiting If multiple antiemetics are ordered, use ondansetron first. May repeat times one in 30 minutes if ineffective. ondansetron ODT (Zofran-ODT) disintegrating tablet 4 mg 4 mg, Oral, EVERY 8 HOURS PRN, Starting on Kathy 03/17/24 at 0700, Until 03/21/24 at 1930, Nausea, If multiple antiemetics are ordered, use ondansetron first. PO Preferred. If patient unable to take PO, may give IV if ordered. May repeat times one in 45 minutes if ineffective. , Routine pantoprazole EC (Protonix) tablet 40 mg 40 mg, Oral, DAILY, First dose on Thu03/18/24 at 0900, Until Discontinued, DO NOT CRUSH OR OPEN, Routine Given 03/21/2024 8:28 AM EDT 40 mg Given 03/20/2024 8:43 AM EDT 40 mg Given 03/19/2024 9:23 AM EDT 40 mg piperacillin-tazobactam (Zosyn) 3.375 g vial attach to sodium chloride 0.9% 50 mL Mini-Bag Plus 3.375 g, Intravenous, EVERY 8 HOURS, First dose (after last modification) on Kathy 03/17/24 at 1000, Until Discontinued, Administer over 4 Hours, Warning Vesicant/Irritant Medication Do not administer or Y-site with lactated ringers., Indication for (Active or Suspected): Urinary Tract/Pyelonephritis New Bag 03/18/2024 10:13 AM EDT 3.375 g 12.5 mL/h r New Bag 03/18/2024 1:11 AM EDT 3.375 g 12.5 mL/hr New Bag 03/17/2024 6:22 PM EDT 3.375 g 12.5 mL/hr piperacillin-tazobactam (Zosyn) 4.5 g vial attach to sodium chloride 0.9% 100 mL Mini-Bag Plus 4.5 g, Intravenous, ONCE, 1 dose, On Thu03/16/24 at 1728, Administer over 0.5 Hours, Warning Vesicant/Irritant Medication Do not administer or Y-site with lactated ringers., Indication for (Active or Suspected): Bacteremia/Sepsis New Bag 03/16/2024 6:41 PM EDT 4.5 g 200 mL/hr pregabalin (Lyrica) capsule 25 mg 25 mg, Oral, 3 TIMES DAILY, First dose on Thu03/17/24 at 0900, Until Discontinued, Routine Given 03/21/2024 2:55 PM EDT 25 mg Given 03/21/2024 8:28 AM EDT 25 mg Given 03/20/2024 8:41 PM EDT 25 mg QUEtiapine (SEROquel) tablet 25 mg 25 mg, Oral, NIGHTLY PRN, Starting on Thu03/17/24 at 0700, Until Thu03/21/24 at 1930, Agitation, Routine Given 03/20/2024 10:28 PM EDT 25 mg QUEtiapine (SEROquel) tablet 50 mg 50 mg, Oral, NIGHTLY, First dose on Thu03/17/24 at 2100, Until Discontinued, Routine Given 03/20/2024 8:41 PM EDT 50 mg Given 03/19/2024 8:41 PM EDT 50 mg Given 03/18/2024 8:12 PM EDT 50 mg senna (Senokot) tablet 8.6 mg 8.6 mg, Oral, 2 TIMES DAILY, First dose on Thu03/17/24 at 0900, Until Discontinued, Routine Given 03/21/2024 8:28 AM EDT 8.6 mg Given 03/20/2024 8:43 AM EDT 8.6 mg Given 03/19/2024 8:40 PM EDT 8.6 mg senna-docusate (Pericolace) 8.6-50 mg per tablet 2 tablet 2 tablet, Oral, 2 TIMES DAILY, First dose on Thu03/17/24 at 0900, Until Discontinued, Hold for loose stool. , Routine Given 03/21/2024 8:28 AM EDT 2 tablets Given 03/20/2024 8:43 AM EDT 2 tablets Given 03/19/2024 8:41 PM EDT 2 tablets sodium chloride 0.9 % (flush) (BD PosiFlush Normal Saline 0.9) flush 5 mL 5 mL, Intravenous, 2 TIMES DAILY, First dose on Thu03/17/24 at 0900, Until Discontinued, Routine Given 03/21/2024 8:28 AM EDT 5 mLs Given 03/20/2024 9:00 PM EDT 5 mLs Given 03/20/2024 8:44 AM EDT 5 mLs sodium chloride 0.9% infusion 1,000 mL, Intravenous, ONCE, 1 dose, On Thu03/16/24 at 1728, IV Fluid bolus for Sepsis; Patient BMI is 24.3 kg/m2, (less than or equal to 30 kg/m2) so dosing based on ACTUAL body weight. Current Body Weight of 85.73 kg x 30 mL/kg/dose = 2,572 mL, rounded to 2,500 mL for target resuscitation volume. New Bag 03/16/2024 5:48 PM EDT 1,000 mLs sodium chloride 0.9% infusion 1,000 mL, Intravenous, ONCE, 1 dose, On Thu03/16/24 at 1743, See first of linked orders for information on IV Fluid Bolus Dosing New Bag 03/16/2024 6:25 PM EDT 1,000 mLs sodium chloride 0.9% infusion 500 mL, Intravenous, ONCE, 1 dose, On Thu03/16/24 at 1758, See first of linked orders for information on IV Fluid Bolus Dosing New Bag 03/16/2024 6:41 PM EDT 500 mLs tamsulosin (Flomax) capsule 0.4 mg 0.4 mg, Oral, DAILY, First dose on Thu03/17/24 at 0900, Until Discontinued, DO NOT CRUSH OR CHEW, Routine Given 03/21/2024 8:28 AM EDT 0.4 mg Given 03/20/2024 8:43 AM EDT 0.4 mg Given 03/19/2024 9:23 AM EDT 0.4 mg vancomycin (Vancocin) 1.25 gram in sodium chloride 0.9% 250 mL infusion 1.25 g, Intravenous, at 200 mL/hr, EVERY 12 HOURS, First dose on Kathy 03/17/24 at 0710, Until Discontinued, Maximum infusion rate is 1 gram/hour. If flushing of the face, neck, upper body, arms, and/or back occurs decrease infusion rate by 50% to reduce the severity of symptoms. This medication may have an associated drug lab level. Please see MAR for scheduled level. Warning Vesicant/Irritant Medication , Routine, Indication for (Active or Suspected): Urinary Tract/Pyelonephritis New Bag 03/17/2024 8:04 AM EDT 1.25 g 200 mL/hr vancomycin (Vancocin) 2 gram in sodium chloride 0.9% 500 mL infusion 2,000 mg, Intravenous, at 250 mL/hr, ONCE, 1 dose, On Thu03/16/24 at 1728, Maximum infusion rate is 1 gram/hour. If flushing of the face, neck, upper body, arms, and/or back occurs decrease infusion rate by 50% to reduce the severity of symptoms. This medication may have an associated drug lab level. Please see MAR for scheduled level. Warning Vesicant/Irritant Medication , STAT, Indication for (Active or Suspected): Bacteremia/Sepsis New Bag 03/16/2024 7:09 PM EDT 2,000 mg 2 50 mL/hr documented in this encounter Active and Recently Administered Medications Times are shown in EDT. Scheduled Medication Order 03/19/2024 03/20/2024 03/21/2024 acetaminophen (Tylenol) tablet 975 mg 975 mg, Oral, EVERY 8 HOURS, First dose on Kathy 03/17/24 at 1512, Until Discontinued, Maximum dose of acetaminophen is 4,000 mg from all sources in 24 hours. When ordered for pain, acetaminophen should be given even when other ordered pain medications are indicated., Routine 020 (Not Given - Provider: Zonia Tao RN - Reason: Patient/family refused - Comment: asleep)921 (Given - Provider: Cara Anthony RN)2039 (Given - Provider: Zonia Tao RN) 0200 (Not Given - Provider: Zonia Tao RN - Reason: Patient/family refused)1128 (Given - Provider: Luz Chang RN)1819 (Given - Provider: Luz Chang RN) 0200 (Not Given - Provider: Cara Anthony RN - Reason: Patient/family refused)1000 (Not Given - Provider: Florentin Dhaliwal, SWETHA - Reason: Patient/family refused) baclofen (Lioresal) tablet 20 mg 20 mg, Oral, 3 TIMES DAILY, First dose on Kathy 03/17/24 at 1500, Until Discontinued, Routine 0923 (Given - Provider: Cara Anthony RN)1516 (Given - Provider: Cara Anthony RN)2040 (Given - Provider: Zonia Tao RN) 0842 (Given - Provider: Luz Chang RN)1601 (Given - Provider: Luz Chang, SWETHA)2041 (Given - Provider: Cara Anthony RN) 0828 (Given - Provider: Florentin Dhaliwal RN)1455 (Given - Provider: Florentin Dhaliwal RN) cefaDROXiL (Duricef) capsule 500 mg 500 mg, Oral, 2 TIMES DAILY, First dose on Thu03/19/24 at 1445, Until Discontinued, Routine, Indication for (Active or Suspected): Urinary Tract/Pyelonephritis 1516 (Given - Provider: Cara Anthony RN)2043 (Given - Provider: Zonia Tao RN) 0844 (Given - Provider: Luz Chang RN)2040 (Given - Provider: Cara Anthony RN) 0828 (Given - Provider: Florentin Dhaliwal RN) ceFAZolin (Ancef) 1 g vial attached to sodium chloride 0.9% 50 mL Mini-Bag Plus (CANCELED) 1 g, Intravenous, EVERY 8 HOURS, First dose on Thu03/18/24 at 1900, Until Discontinued, Administer over 30 Minutes, Indication for (Active or Suspected): Urinary Tract/Pyelonephritis 0338 (New Bag - Provider: Zonia Tao RN)0408 (Stopped - Provider: Zonia Tao RN)1144 (New Bag - Provider: Cara Anthony RN)1214 (Stopped - Provider: Cara Anthony RN) divalproex ER (Depakote ER) tablet 500 mg 500 mg, Oral, 2 TIMES DAILY, First dose (after last modification) on Thu03/17/24 at 2100, Until Discontinued, DO NOT SPLIT, CRUSH OR OPEN, Routine 09 (Given - Provider: Cara Anthony RN)2039 (Given - Provider: Zonia Tao RN) 0843 (Given - Provider: Luz Chang RN)2040 (Given - Provider: Cara Anthony RN) 08 (Given - Provider: Florentin Dhaliwal RN) enoxaparin (Lovenox) (40 mg/0.4 mL) subcutaneous injection 40 mg 40 mg, Subcutaneous, NIGHTLY, First dose on Thu03/17/24 at 2100, Until Discontinued, Routine 2040 (Given - Provider: Zonia Tao RN) 2039 (Given - Provider: Cara Anthony RN) LORazepam (Ativan) tablet 1 mg 1 mg, Oral, 3 TIMES DAILY, First dose on Thu03/18/24 at 1645, Until Discontinued, Routine 09 (Given - Provider: Cara Anthony RN)1517 (Given - Provider: Cara Anthony RN)204 (Given - Provider: Zonia Tao RN) 0842 (Given - Provider: Luz Chang, SWETHA)1602 (Given - Provider: Luz Chang RN)2040 (Given - Provider: Cara Anthony RN) 0828 (Given - Provider: Florentin Dhaliwal RN)1455 (Given - Provider: Florentin Dhaliwal RN) mirabegron ER (Myrbetriq) tablet 25 mg 25 mg, Oral, DAILY, First dose on Thu03/17/24 at 0900, Until Discontinued, Do not crush, Routine, This product is restricted for continuation of outpatient regimen only. Is this a home medication? Yes 09 (Given - Provider: Cara Anthony RN) 0843 (Given - Provider: Luz Chang RN) 0828 (Given - Provider: Florentin Dhaliwal RN) pantoprazole EC (Protonix) tablet 40 mg 40 mg, Oral, DAILY, First dose on Thu03/18/24 at 0900, Until Discontinued, DO NOT CRUSH OR OPEN, Routine 922 (Given - Provider: Cara Anthony RN) 0843 (Given - Provider: Luz Chang, SWETHA) 0828 (Given - Provider: Florentin Dhaliwal RN) pregabalin (Lyrica) capsule 25 mg 25 mg, Oral, 3 TIMES DAILY, First dose on Thu03/17/24 at 0900, Until Discontinued, Routine 09 (Given - Provider: Cara Anthony RN)1516 (Given - Provider: Cara Anthony RN)204 (Given - Provider: Zonia Tao RN) 0842 (Given - Provider: Luz Chang, SWETHA)1602 (Given - Provider: Luz Chang, SWETHA)204 (Given - Provider: Cara Anthony RN) 0828 (Given - Provider: Florentin Dhaliwal RN)1455 (Given - Provider: Florentin Dhaliwal RN) QUEtiapine (SEROquel) tablet 50 mg 50 mg, Oral, NIGHTLY, First dose on Thu03/17/24 at 2100, Until Discontinued, Routine 2040 (Given - Provider: Zonia Tao RN) 2040 (Given - Provider: Cara Anthony, SWETHA) senna (Senokot) tablet 8.6 mg 8.6 mg, Oral, 2 TIMES DAILY, First dose on Thu03/17/24 at 0900, Until Discontinued, Routine 921 (Given - Provider: Cara Anthony RN)204 (Given - Provider: Zonia Tao RN) 0843 (Given - Provider: Luz Chang, SWETHA)2100 (Not Given - Provider: Cara Anthony RN - Reason: Patient/family refused) 08 (Given - Provider: Florentin Dhaliwal RN) senna-docusate (Pericolace) 8.6-50 mg per tablet 2 tablet 2 tablet, Oral, 2 TIMES DAILY, First dose on Thu03/17/24 at 0900, Until Discontinued, Hold for loose stool. , Routine 921 (Given - Provider: Cara Anthony, SWETHA)2040 (Given - Provider: Zonia Tao RN) 08 (Given - Provider: Luz Chang, SWETHA)2099 (Not Given - Provider: Cara Anthony RN - Reason: Patient/family refused) 08 (Given - Provider: Florentin Dhaliwal, SWETHA) sodium chloride 0.9 % (flush) (BD PosiFlush Normal Saline 0.9) flush 5 mL 5 mL, Intravenous, 2 TIMES DAILY, First dose on Thu03/17/24 at 0900, Until Discontinued, Routine 927 (Given - Provider: Cara Anthony, SWETHA)2041 (Given - Provider: Zonia Tao RN) 08 (Given - Provider: Luz Chang, SWETHA)2099 (Given - Provider: Cara Anthony RN) 08 (Given - Provider: Florentin Dhaliwal RN) tamsulosin (Flomax) capsule 0.4 mg 0.4 mg, Oral, DAILY, First dose on Thu03/17/24 at 0900, Until Discontinued, DO NOT CRUSH OR CHEW, Routine 922 (Given - Provider: Cara Anthony RN) 08 (Given - Provider: Luz Chang, SWETHA) 08 (Given - Provider: Florentin Dhaliwal RN) PRN Medication Order 03/19/2024 03/20/2024 03/21/2024 acetaminophen (Tylenol) tablet 650 mg 650 mg, Oral, EVERY 6 HOURS PRN, Starting on Thu03/17/24 at 0700, Until Thu03/21/24 at 1930, Pain, Fever, Administer for pain or temperature greater than or equal to 38.2 degrees Celsius. Maximum daily dose of acetaminophen from all sources not to exceed 4,000 mg. When ordered for pain, acetaminophen should be given even when other ordered pain medications are indicated., Routine heparin (pf) (porcine) (100 units/mL) flush 5 mL syringe 500 Units 500 Units (5 mL), Intravenous, DAILY PRN, 1 dose, Starting on Thu03/21/24 at 1058, Until Thu03/21/24 at 1930, Line Care, Terminal Flush for de-accessing of Implantable Port, Routine lidocaine (Xylocaine) 1% (10 mg/mL) injection 3 mg 3 mg (0.3 mL), Subcutaneous, ONCE PRN, 1 dose, Starting on Kathy 03/17/24 at 0700, Until Thu03/21/24 at 1930, for discomfort with PIV insertion, Routine LORazepam (Ativan) tablet 1 mg 1 mg, Oral, 3 TIMES DAILY PRN, Starting on Kathy 03/17/24 at 0700, Until Thu03/21/24 at 1930, Anxiety, Routine 2314 (Given - Provider: Zonia Tao, RN) 2227 (Given - Provider: Cara Anthony, SWETHA) melatonin tablet 6 mg 6 mg, Oral, NIGHTLY PRN, Starting on Kathy 03/17/24 at 0700, Until Thu03/21/24 at 1930, Sleep, Sleep, Use first line, Routine 2313 (Given - Provider: Zonia Tao RN) 2227 (Given - Provider: Cara Anthony, RN) ondansetron (pf) (Zofran) (2 mg/mL) injection 4 mg(Linked Group 1) 4 mg, Intravenous, EVERY 8 HOURS PRN, Starting on Kathy 03/17/24 at 0700, Until Thu03/21/24 at 1930, Nausea, 4 mg,Oral,EVERY 8 HOURS PRN, Nausea,Vomiting If multiple antiemetics are ordered, use ondansetron first. May repeat times one in 30 minutes if ineffective. ondansetron ODT (Zofran-ODT) disintegrating tablet 4 mg(Linked Group 1) 4 mg, Oral, EVERY 8 HOURS PRN, Starting on Kathy 03/17/24 at 0700, Until Thu03/21/24 at 1930, Nausea, If multiple antiemetics are ordered, use ondansetron first. PO Preferred. If patient unable to take PO, may give IV if ordered. May repeat times one in 45 minutes if ineffective. , Routine QUEtiapine (SEROquel) tablet 25 mg 25 mg, Oral, NIGHTLY PRN, Starting on Kathy 03/17/24 at 0700, Until Thu03/21/24 at 1930, Agitation, Routine 2227 (Given - Provider: Cara Anthony, SWETHA) sodium chloride 0.9 % (flush) (BD PosiFlush Normal Saline 0.9) flush 5-20 mL 5-20 mL, Intravenous, EVERY 1 MIN PRN, Starting on Kathy 03/17/24 at 0700, Until 03/21/24 at 1930, flush, Flush pertains to all indwelling lines. Flush per protocol found in the job aid using the link provided on this medication record., Routine zolpidem (Ambien) tablet 10 mg 10 mg, Oral, NIGHTLY PRN, Starting on Kathy 03/17/24 at 0700, Until 03/21/24 at 1930, Sleep, Use if no relief 30 min after melatonin, Routine Linked Groups Order Group 1: ondansetron ODT (Zofran-ODT) disintegrating tablet 4 mgJump to med 4 mg, Oral, EVERY 8 HOURS PRN, Starting on Kathy 03/17/24 at 0700, Until 03/21/24 at 1930, Nausea, If multiple antiemetics are ordered, use ondansetron first. PO Preferred. If patient unable to take PO, may give IV if ordered. May repeat times one in 45 minutes if ineffective. , Routine Or ondansetron (pf) (Zofran) (2 mg/mL) injection 4 mgJump to med 4 mg, Intravenous, EVERY 8 HOURS PRN, Starting on Kathy 03/17/24 at 0700, Until 03/21/24 at 1930, Nausea, 4 mg,Oral,EVERY 8 HOURS PRN, Nausea,Vomiting If multiple antiemetics are ordered, use ondansetron first. May repeat times one in 30 minutes if ineffective. documented in this encounter Additional Health Concerns Infection Onset Date Last Indicated Resolved Time Rule Out Respiratory 03/16/2024 03/16/2024 024 8:27 PM EDT Rule Out COVID-19 03/16/2024 03/16/2024 03/16/2024 8:27 PM EDT documented as of this encounter Care Teams Regulatory Scientist Relationship Specialty Start Date End Date Genevieve Baez MD [address] [place] [address] PCP - General Family Medicine 07/22/23 documented as of this encounter
--- OUTSIDE RECORDS SUMMARY | 2024-07-22 15:00 | XMS_ITS | Encounter Summary ---
Author Organization [facility] Address [address] [place] [address] Care Team Providers Care Cooler Worker Name Role Phone Unknown, Provider Primary Care Provider Encounter Details Date Type Department Care Team ([facility] st Contact Info) Description 07/10/2016 Results Only [facility] [phone] Kiel Murillo MD [address] [place] [address] Social History Tobacco Use Types Packs/Day Years Used Date Smoking Tobacco: Never Assessed Sex and Gender Information Value Date Recorded Sex Assigned at Not on file Gender Identity Not on file Sexual Orientation Not on file documented as of this encounter Plan of Treatment Not on file documented as of this encounter Procedures Procedure Name Priority Date/Time Associated Diagnosis Comments SURGICAL PATHOLOGY Routine 07/10/2016 9:20 EDT documented in this encounter Results * SURGICAL PATHOLOGY (07/10/2016 9:20 EDT) Pathology Report: SURGICAL PATHOLOGY REPORT Reports generated via electronic interface contain original data; however they are lacking the format of the original report. Caution should be taken when reading/interpret ing unformatted reports. Name: ? NEWTON BARRIOS ? Accession #: ? [id number] ? : ? 1965 (Age: 51) ??M ? Collect Date: ? 07/10/2016 ? Location: ? [facility] ? Receive Date: ? 07/11/2016 ? Provider: ROX MURILLO MD Copy to: ? Final Pathologic Diagnosis: A. ??DUODENUM, 2ND PORTION, BIOPSY: - Duodenal mucosa with no specific pathologic features. B. ??STOMACH, ANTRUM AND BODY, BIOPSY: - Gastric mucosa with no specific pathologic features. C. ??SMALL BOWEL, TERMINAL ILEUM, BIOPSY: - Small bowel mucosa with no specific pathologic features. D. ??COLON, ASCENDING, BIOPSY: - Colonic mucosa with no specific pathologic features. E. ??ILEOCECAL VALVE, POLYP, BIOPSY: - Fragments of tubular adenoma. F. ??COLON, DESCENDING, BIOPSY: - Colonic mucosa with no specific pathologic features. G. ??COLON, SIGMOID, POLYP, BIOPSY: - Hyperplastic polyp. H. ??RECTUM, BIOPSY: - Rectal mucosa with no specific pathologic features. ?? Document reviewed and electronically signed by: CELI SPAULDING MD Report ??Date: 07/14/2016 14:18 By the signature above, the attending physician certifies that he/she has personally conducted a gross and/or microscopic examination of the described specimens and rendered or confirmed the above diagnosis. Specimen(s) Received: A. ??2nd portion biopsy B. ??Antrum and body biopsy C. ??Terminal ileum biopsy D. ??Ascending colon biopsy E. ??Ileocecal valve polyp F. ??Descending colon biopsy G. ??Sigmoid colon polyp H. ??Rectal biopsy Clinical History: Altered bowels; dyspepsia; clinical diagnosis code: R10.13, R19.4 Gross Description: A. ?Received in formalin labelled with proper patient identification (initials R, L) and 2nd portion biopsy is a single fragment of wood-pink tissue (0.3 x 0.3 x 0.2 cm). The specimen is submitted entirely in A1. B. ?Received in formalin labelled with proper patient identification (initials R, L) and antrum and body biopsy are two fragments of wood-pink tissue (each 0.4 x 0.2 x 0.2 cm). The specimens are submitted entirely in B1. C. ?Received in formalin labelled with proper patient identification (initials R, L) and terminal ileum biopsy are two fragments of wood-pink tissue measuring 0.2 cm and 0.4 cm in greatest dimension. The specimens are submitted entirely in C1. D. ?Received in formalin labelled with proper patient identification (initials R, L) and ascending colon biopsy is a single fragment of wood-pink tissue (0.3 x 0.3 x 0.2 cm). The specimen is submitted entirely in D1. E. ?Received in formalin labelled with proper patient identification (initials R, L) and ileocecal valve polyp are two fragments of wood-pink tissue measuring 0.2 cm and 0.3 cm in greatest dimension. The specimens are submitted entirely in E1. F. ?Received in formalin labelled with proper patient identification (initials R, L) and descending colon biopsy are three fragments of wood-pink tissue ranging from 0.2-0.3 cm in greatest dimension. The specimens are submitted entirely in F1. G. ?Received in formalin labelled with proper patient identification (initials R, L) and sigmoid colon polyp are two fragments of wood-pink tissue (each 0.3 x 0.2 x 0.2 cm). The specimens are submitted entirely in G1. H. ?Received in formalin labelled with proper patient identification (initials R, L) and rectal biopsy is a single fragment of wood-pink tissue (0.3 x 0.3 x 0.2 cm). The specimen is submitted entirely in H1. KAN Olmstead (ASCP) 07/11/2016 10:24 AM End of Report [facility] 07/10/2016 9:20 EDT 07/11/2016 9:20 EDT Kiel Murillo MD PATHOLOGY ORDERABLES [facility] [address] [place] [address] documented in this encounter Visit Diagnoses Not on filedocumented in this encounter Care Teams Cooler Worker Relationship Specialty Start Date End Date Unknown, Provider, PCP - General 07/11/16 07/14/16 documented as of this encounter
--- OUTSIDE RECORDS SUMMARY | 2024-07-22 15:00 | XMS_ITS | Encounter Summary ---
Author Organization [facility] [place] [address] Care Team Providers Care District Administrative Assistant Name Role Phone Genevieve Baez MD Primary Care Provider [phone] Encounter Details Date Type Department Care Team (Late st Contact Info) Description 06/20/2024 Interpretation Only [address] [id number] Iain Reyes MD [address] [place], [place] [id number] Social History Tobacco Use Types Packs/Day Years Used Date Smoking Tobacco: Never Smokeless Tobacco: Never Alcohol Use Standard Drinks/Week Comments Never 0 (1 standard drink = 0.6 oz pur e alcohol) [facility] Utilities Answer Date Recorded In the past 12 months has [employer] electric, gas, oil, or water company threatened [...] Diagnosis Comments XR CHEST ONE VIEW STAT 06/20/2024 8:2 4 AM EDT documented in this encounter Results * XR Chest One View (06/20/2024 8:24 AM EDT) PT CLASS E RAD ADMITDTTM [id number] RAD PT RAD MD INFO [id number]^Findle y^Christopher^Carolyn d RAD EXAM DESC XCXR1^XR Chest 1 View^RIS [facility] WORKSTATION ID [id number] [facility] Anatomical Region Laterality Modality Chest N/A Radiographic Gricel ging 06/20/2024 8:24 AM EDT Impressions 06/20/2024 8:43 AM EDT No acute cardiopulmonary findings. Thank you for letting us participate in the care of this patient. ??If you are a health care provider and have any questions regarding this report, please contact the number below. ??For patients who have questions please contact the health animal care giver that requested your imaging first. ? Electronically signed by: Eliane Stewart MD[facility] ([phone]), at 06/20/2024 8:43 AM Narrative 06/20/2024 8:43 AM EDT EXAMINATION: XR Chest 1 View CLINICAL HISTORY: fever. (as entered by ordering provider in the order requisition) TECHNIQUE: Portable AP view of the chest COMPARISON: None FINDINGS: There is a left chest port with its tip projecting over expected location of the superior cavoatrial junction. ??There is partial visualization of upper thoracic spine fusion hardware. Normal cardiomediastinal and hilar silhouettes. No focal consolidation. No pleural effusion. No pneumothorax. Procedure Note Eliane Stewart MD - 06/20/2024 EXAMINATION: XR Chest 1 View CLINICAL HISTORY: fever. (as entered by ordering provider in the order requisition) TECHNIQUE: Portable AP view of the chest COMPARISON: None FINDINGS: There is a left chest port with its tip projecting over expected locationof the superior cavoatrial junction. There is partial visualization of upperthoracic spine fusion hardware. Normal cardiomediastinal and hilar silhouettes. No focal consolidation.No pleural effusion. No pneumothorax. IMPRESSION No acute cardiopulmonary findings. Thank you for letting us participate in the care of this patient. If youare a health care provider and have any questions regarding this report,please contact the number below. For patients who have questions please contactthe health animal care giver that requested your imaging first. Electronically signed by: Eliane Stewart MD[facility]([phone]), at 06/20/2024 8:43 AM Iain Reyes MD IMG DX ORDERABL ES documented in this encounter Visit Diagnoses Not on filedocumented in this encounter Care Teams District Administrative Assistant Relationship Specialty Start Date End Date Genevieve Baez MD [address] [place] [address] PCP - General Family Medicine 07/22/23 documented as of this encounter
--- OUTSIDE RECORDS SUMMARY | 2024-07-22 15:00 | XMS_ITS | Encounter Summary ---
[place] [address] Care Team Providers Care Edger Technician Name Role Phone Genevieve Baez MD Primary Care Provider [phone] Reason for Referral * Consultation (Urgent) - Authorized Specialty Diagnoses / Procedures Referred By Contac t Referred To Contact Infectious Diseases Diagnoses Osteomyelitis, unspecified site, unspecified type Genevieve Baez MD [address] [place] [address] [facility] [address] [place] [id number] Referral ID Status Reason Start Date Expiration Date Visits Requested Visits Authorized [id number] Authorized Consult, Test & Treat PCP Updated and/or Approved 02/29/2024 08/30/2024 6 6 Encounter Details Date Type Department Care Team (Latest Contact Info) Description 06/01/2024 Transcribe Orders eDH Incoming Referrals [phone] Genevieve Baez MD [address] [place] [address] Osteomyelitis, unspecified site, unspecified type Social History Tobacco Use Types Packs/Day Years Used Date Smoking Tobacco: Never Smokeless Tobacco: Never Alcohol Use Standard Drinks/Week Comments Never 0 (1 standard drink = 0.6 oz pur e alcohol) [facility] Utilities Answer Date Recorded In the [...] slept in a correction (including now)? No 03/18/2024 IPV Inpatient Questions [...] Disease and International Health Outpatient Referral Urgent Osteomyelitis, unspecified site, unspecified type Ordered: 06/01/2024 documented as of this encounter Visit Diagnoses Diagnosis Osteomyelitis, unspecified site, unspecified type documented in this encounter Care Teams Edger Technician Relationship Specialty Start Date End Date Genevieve Baez MD [address] [place] [address] PCP - General Family Medicine 07/22/23 documented as of this encounter
--- OUTSIDE RECORDS SUMMARY | 2024-07-22 15:00 | XMS_ITS | Encounter Summary ---
Author Organization Formerly [facility] [place] [address] Care Team Providers Care Hand Tool Lapper Name Role Phone Genevieve Baez MD Primary Care Provider [phone] Encounter Details Date Type Department Care Team (Late st Contact Info) Description 06/20/2024 [place] [id number] Iain Reyes MD [address] [place], [place] [id number] Social History Tobacco Use Types Packs/Day Years Used Date Smoking Tobacco: Never Smokeless Tobacco: Never Alcohol Use Standard Drinks/Week Comments Never 0 (1 standard drink = 0.6 oz pur e alcohol) [facility] Utilities Answer Date Recorded In the past 12 months has [employer] electric, gas, oil, or water company threatened [...] place to sleep or slept in a care home (including now)? No 03/18/2024 DH IPV Inpatient [...] Procedure Name Priority Date/Time Associated Diagnosis Comments BLOOD CULTURE Routine 06/23/2024 10:50 AM EDT URINE CULTURE Routine 06/23/2024 7:55 AM EDT BLOOD CULTURE Routine 06/21/2024 2:57 PM EDT BLOOD CULTURE Routine 06/20/2024 7:52 AM EDT URINE CULTURE Routine 06/20/2024 7:36 AM EDT documented in this encounter Results * Blood culture (06/23/2024 10:50 AM EDT) Blood Culture No growth at 120 hours 06/28/2024 7:01 PM EDT [facility] Blood VENOUS BLOOD SPECIMEN / Unknown 06/23/2024 10:50 AM EDT 06/23/2024 5:26 PM EDT Thom Albrecht MD MICROBIOLOGY - BLOOD ORDERABLES Performing Organization Address [facility] Co de Phone Number [facility] [place] [address] * Urine culture (06/23/2024 7:55 AM EDT) Urine Culture 10,000-49,0 00 cfu/ml mixed mucosal daphne 06/24/2024 1:07 PM EDT [facility] Urine URINE SPECIMEN OBTAINED BY CLEAN CATCH PROCEDURE / Unknown 06/23/2024 7:55 AM EDT 06/23/2024 5:26 PM EDT Thom Albrecht MD MICROBIOLOGY - GENER AL ORDERABLES Performing Organization Address [facility] Co de Phone Number [facility] [place] [address] * Blood culture (06/21/2024 2:57 PM EDT) Blood Culture No growth at 120 hours 06/26/2024 11:01 PM EDT [facility] Blood VENOUS BLOOD SPECIMEN / Unknown 06/21/2024 2:57 PM EDT 06/21/2024 10:07 PM EDT Thom Albrecht MD MICROBIOLOGY - BLOOD ORDERABLES Performing Organization Address [facility] Co de Phone Number [facility] [place] [address] * (ABNORMAL) Blood culture (06/20/2024 7:52 AM EDT) Blood Culture Coagulase Negative Staphylococcus species(A) 06/25/2024 8:11 AM EDT [facility] Comment: detected by PCR Interpretation of the importance of skin daphne such as Coag Negative Staph, Viridans Strep, Corynebacteria and other Gram Positive orgs from a single Blood Culture set requires clinical correlation. Gram Stain Aerobic Bottle: Gram positive cocci in clusters(A) 06/25/2024 8:11 AM EDT [facility] Blood VENOUS BLOOD SPECIMEN / Unknown 06/20/2024 7:52 AM EDT 06/20/2024 10:02 AM EDT Iain Reyes MD MICROBIOLOGY - BLOOD ORDERABLES Performing Organization Address [facility] Co de Phone Number [facility] [place] [address] * (ABNORMAL) Urine culture (06/20/2024 7:36 AM EDT) Urine Culture Greater than 100,000 cfu/ml Pseudomonas aeruginosa(A) VITEK 2 METHOD 06/22/2024 7:50 AM EDT [facility] Urine URINE SPECIMEN OBTAINED BY CLEAN CATCH PROCEDURE / Unknown 06/20/2024 7:36 AM EDT 06/21/2024 8:13 AM EDT Narrative Organism Antibiotic Method Susceptibility Pseudomonas aeruginosa Amikacin VITEK 2 METHOD 2.0 ug/ml: Susceptible Pseudomonas aeruginosa Cefepime VITEK 2 METHOD 2.0 ug/ml: Susceptible Pseudomonas aeruginosa Ceftazidime VITEK 2 METHOD 2.0 ug/ml: Susceptible Pseudomonas aeruginosa Ciprofloxacin VITEK 2 METHOD 0.12 ug/ml: Susceptible Pseudomonas aeruginosa Levofloxacin VITEK 2 METHOD 0.5 ug/ml: Susceptible Pseudomonas aeruginosa Meropenem VITEK 2 METHOD <=0.25 ug/ml: Susceptible Pseudomonas aeruginosa Piperacillin/Tazobactam VITEK 2 METHOD <=4.0 ug/ml: Susceptible Chris Goldsmith MD MICROBIOLOGY - GENER AL ORDERABLES Performing Organization Address [facility] Co de Phone Number [facility] [place] [address] documented in this encounter Visit Diagnoses Not on filedocumented in this encounter Care Teams Hand Tool Lapper Relationship Specialty Start Date End Date Genevieve Baez MD [address] [place] [address] PCP - General Family Medicine 07/22/23 documented as of this encounter
--- OUTSIDE RECORDS SUMMARY | 2024-07-22 15:01 | XMS_ITS | Encounter Summary ---
Author Organization [facility] [place] [address] Care Team Providers Care Tire Fabric Inspector Name Role Phone Genevieve Baez MD Primary Care Provider [phone] Encounter Details Date Type Department Care Team (Late st Contact Info) Description 11/24/2023 9:08 PM EST - 11/24/2023 11:59 PM [facility] Hospital Encounter [facility] Lab [address] [place] [address] Shoaib Barr MD [address] [place] [address] Discharge Disposition: Home Social History Tobacco Use Types Packs/Day Years Used Date Smoking Tobacco: Never Smokeless Tobacco: Never Alcohol Use Standard Drinks/Week Comments Never 0 (1 standard drink = 0.6 oz pur e alcohol) [facility] Utilities Answer Date Recorded In the [...] on file documented as of this encounter Medications at Time of Discharge Medication Sig Dispensed Refills Start Date End Date mirabegron ER (Myrbetriq) 25 mg ER 24 [...] Every 8 hours as needed. 01/13/2021 L. acidophilus/L.bulgari cus (FLORANEX ORAL) Take 1 tablet by mouth 3 times daily. baclofen (Lioresal) 20 mg tablet Take 1 tablet by mouth 3 times daily. 11/09/2023 03/21/2024 divalproex ER (Depakote ER) 500 mg ER 24 hr tablet Take 1 tablet by mouth daily. 11/09/2023 03/21/2024 LORazepam (Ativan) 1 mg tablet Take 1 tablet by mouth 3 times daily as needed for Anxiety. 90 tablet 11/09/2023 03/21/2024 QUEtiapine (SEROquel) 25 mg tablet Take 1 tablet by mouth nightly as needed. 30 tablet 11/09/2023 03/21/2024 senna (Senokot) 8.6 mg tablet Take 1 tablet by mouth 2 times daily. 60 tablet 11/09/2023 03/21/2024 zolpidem (Ambien) 10 mg tablet Take 1 tablet by mouth nightly as needed for Sleep. 30 tablet 11/09/2023 03/21/2024 lactulose (Chronulac) 10 gram/15 mL Solution Take 30 mLs by mouth Daily. 01/14/2021 03/17/2024 melatonin 10 mg Tablet Take 10 mg by mouth Daily. 01/13/2021 03/17/2024 mirtazapine (REMERON) 45 mg Tablet Take 45 mg by mouth Daily. 01/13/2021 03/17/2024 apixaban (Eliquis) 5 mg Tablet Take 5 mg by mouth Twice daily. 01/07/2021 03/17/2024 busPIRone (Buspar) 10 mg Tablet TAKE TWO TABLETS BY MOUTH THREE TIMES A DAY 01/24/2021 03/17/2024 senna (Senokot) 8.6 mg Tablet Take 2 tablets by mouth Twice daily. 01/14/2021 03/17/2024 phenyleph-min oil-petrolatum 0.25-14-74.9 % Ointment Place 1 Application rectally Every 6 hours as needed. 01/13/2021 03/17/2024 diclofenac (VOLTAREN) 1 % Gel Apply 4 g topically 4 times daily as needed. 01/13/2021 albuteroL 90 mcg/actuation HFA Aerosol Inhaler Inhale 2 puffs into the lungs Every 4 hours as needed. 01/13/2021 03/17/2024 midodrine (Proamatine) 2.5 mg Tablet Take 2.5 mg by mouth 3 times daily. 03/17/2024 doxycycline (VIBRA-TABS) 100 mg Tablet Take 1 tablet by mouth 2 times daily. 14 tablet 11/20/2020 03/21/2024 documented as of this encounter Plan of Treatment Not on file documented as of this encounter Procedures Procedure Name Priority Date/Time Associated Diagnosis Comments BLOOD CULTURE Routine 11/24/2023 9:33 PM EST BLOOD CULTURE Routine 11/24/2023 8:48 PM EST URINE CULTURE Routine 11/24/2023 8:30 PM EST documented in this encounter Results * Blood culture (11/24/2023 9:33 PM EST) Blood Culture No growth at 5 days. [facility] Blood TOPOGRAPHY UNKNOWN / Unknown 11/24/2023 9:33 PM EST 11/25/2023 4:51 PM EST Narrative Resulting Agency Comment Spec In Lab Shoaib Barr MD MICROBIOLOGY - BLOOD ORDERABLES Performing Organization Address City/State/[facility] Co de Phone Number [facility] [place] [address] * Blood culture (11/24/2023 8:48 PM EST) Blood Culture No growth at 5 days. [facility] Blood TOPOGRAPHY UNKNOWN / Unknown 11/24/2023 8:48 PM EST 11/25/2023 4:50 PM EST Narrative Resulting Agency Comment Spec In Lab Shoaib Barr MD MICROBIOLOGY - BLOOD ORDERABLES [facility] [place] [address] * (ABNORMAL) Urine culture (11/24/2023 8:30 PM EST) Urine Culture Greater than 100,000 cfu/ml Klebsiella pneumoniae Greater than 100,000 cfu/ml Pseudomonas aeruginosa (A) [facility] Organism Klebsiella pneumoniae(A) [facility] Organism Pseudomonas aeruginosa(A) [facility] Urine 11/24/2023 8:30 PM EST 11/25/2023 5:06 PM EST Narrative Resulting Agency Comment Spec In Lab Organism Antibiotic Method Susceptibility Klebsiella pneumoniae Amikacin VITEK 2 METHOD Sensitive Klebsiella pneumoniae Ampicillin + Sulbactam VITEK 2 M ETHOD Sensitive Klebsiella pneumoniae Aztreonam VITEK 2 METHOD Sensitive Klebsiella pneumoniae Cefazolin VITEK 2 METHOD Sensitive Klebsiella pneumoniae Cefepime VITEK 2 METHOD <=1: Sensitive Klebsiella pneumoniae Ceftazidime VITEK 2 METHOD <=1: Sensitive Klebsiella pneumoniae Ceftriaxone VITEK 2 METHOD Sensitive Klebsiella pneumoniae Ertapenem VITEK 2 METHOD Sensitive Klebsiella pneumoniae Gentamicin VITEK 2 METHOD Sensitive Klebsiella pneumoniae Levofloxacin VITEK 2 METHOD Sensitive Comment: Levofloxacin and Ciprofloxacin may not adequately treat infections in critically ill patients even when isolates test susceptible in the laboratory. Contact Infectious Disease before using in critically ill patients. Klebsiella pneumoniae Meropenem VITEK 2 METHOD <=0.25: Sensitive Klebsiella pneumoniae Nitrofurantoin VITEK 2 METHOD Intermediate Klebsiella pneumoniae Piperacillin/Tazobactam VITEK 2 METHOD <=4: Sensitive Klebsiella pneumoniae Tetracycline VITEK 2 METHOD Sensitive Klebsiella pneumoniae Tobramycin VITEK 2 METHOD Sensitive Klebsiella pneumoniae Trimethoprim/Sulfa VITEK 2 METHO D Sensitive Pseudomonas aeruginosa Amikacin MICROSCAN METHOD Sensitive Pseudomonas aeruginosa Aztreonam MICROSCAN METHOD Sensitive Pseudomonas aeruginosa Cefepime MICROSCAN METHOD <=2: Sensitive Pseudomonas aeruginosa Ceftazidime MICROSCAN METHOD <=2: Sensitive Pseudomonas aeruginosa Ciprofloxacin MICROSCAN METHOD Sensitive Pseudomonas aeruginosa Levofloxacin MICROSCAN METHOD Sensitive Comment: Levofloxacin and Ciprofloxacin may not adequately treat infections in critically ill patients even when isolates test susceptible in the laboratory. Contact Infectious Disease before using in critically ill patients. Pseudomonas aeruginosa Meropenem MICROSCAN METHOD <=1: Sensitive Pseudomonas aeruginosa Piperacillin/Tazobactam MICROSC AN METHOD <=8: Sensitive Pseudomonas aeruginosa Tobramycin MICROSCAN METHOD Sensitive Shoaib Barr MD MICROBIOLOGY - GENER AL ORDERABLES [facility] [place] [address] documented in this encounter Visit Diagnoses Not on filedocumented in this encounter Care Teams Tire Fabric Inspector Relationship Specialty Start Date End Date Genevieve Baez MD [address] [place] [address] PCP - General Family Medicine 07/22/23 documented as of this encounter
--- OUTSIDE RECORDS SUMMARY | 2024-07-22 15:01 | XMS_ITS | Encounter Summary ---
Author Organization [facility] [place] [address] Care Team Providers Care Platinumsmith Name Role Phone Genevieve Baez MD Primary Care Provider [phone] Encounter Details Date Type Department Care Team (Late st Contact Info) Description 12/22/2023 Interpretation Only [facility] [address] [place] [address] Shoaib Barr MD [address] [place] [address] Social History Tobacco Use Types Packs/Day Years Used Date Smoking Tobacco: Never Smokeless Tobacco: Never Alcohol Use Standard Drinks/Week Comments Never 0 (1 standard drink = 0.6 oz pur e alcohol) [facility] Utilities Answer Date Recorded In the past 12 months has [employer] electric, gas, oil, or water company threatened [...] place to sleep or slept in a nursing home (including now)? No 10/27/2023 IPV Inpatient Questions [...] Associated Diagnosis Comments CT ABDOMEN AND PELVIS W CONTRAST STAT 12/22/2023 12:21 PM EST documented in this encounter Results * (ABNORMAL) CT Abdomen & Pelvis w Contrast (12/22/2023 12:21 PM EST) PT CLASS E RAD ADMITDTTM [id number] RAD PT RAD MD INFO [id number]^Potter^ Shoaib RAD EXAM DESC CTAPW^CT Abdomen and Pelvis w/ Contrast^RIS RAD Anatomical Region Laterality Modality Abdomen, Pelvis Computed Tomogra phy 12/22/2023 12:2 1 PM EST Impressions 12/22/2023 1:08 PM EST 1. ??No bowel obstruction. Moderate colonic stool burden. 2. ??Increased conspicuity of lytic lesions in the sacrum and pelvis. Differential includes multiple myeloma. Recommend further evaluation with nonemergent outpatient MRI of the pelvis with and without contrast. Unexpected finding. 3. ??Unchanged position of right ureteral stent. No hydronephrosis. 4. ??New mild splenomegaly. 5. ??Similar appearance of left gluteal decubitus ulcer with similar chronic sclerosis of the adjacent ischium. Thank you for letting us participate in the care of this patient. ??If you are a health care provider and have any questions regarding this report, please contact the number below. ??For patients who have questions please contact the health hospice care consultant that requested your imaging first. ? 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 Oral contrast was administered. COMPARISON: CT abdomen pelvis 11/24/2023 FINDINGS: Images are degraded by respiratory motion artifact and arms down positioning resulting in streak artifact. Lower chest: Coronary artery calcifications. Normal heart size. Partially visualized catheter in the SVC. Left lower lobe atelectasis consolidation, similar. Liver: Normal morphology. Mild ill-defined hypoattenuation within the left lobe of the liver, favored to represent artifact. No suspicious lesions. Bile ducts: Nondilated. Gallbladder: Respiratory motion artifact decreases sensitivity for cholecystitis and gallstones, no gallbladder dilation. Pancreas: Grossly normal although the pancreatic tail is partially obscured by respiratory motion artifact. Spleen: Mild splenomegaly to 13.7 cm Adrenals: Normal. Kidneys: Symmetric enhancement. No collecting system dilation. Status post right ureteral stent in unchanged position with proximal pigtail in the upper pole collecting system. Redemonstrated nonobstructing intrarenal calculi. Urinary Bladder: Status post suprapubic catheter with air in the bladder. Decompressed bladder with decreased mild diffuse wall thickening, likely related to known neurogenic bladder. Vasculature: No abdominal aortic aneurysm. Lymph Nodes: No enlarged lymph nodes. Bowel: Status post left lower quadrant and descending colostomy, similar appearance compared to 11/24/2023. Small bowel loop within the pelvis that is top normal in caliber and gradually tapers proximally and distally without abrupt transition point. No bowel obstruction. Normal appendix. Moderate colonic stool burden. Peritoneum and retroperitoneum: No free fluid. No pneumoperitoneum. No loculated fluid collection or mesenteric inflammation. Abdominal wall: Chest port within the left chest wall. Diffuse muscular atrophy. Reproductive organs: Normal. Osseous structures: Increased conspicuity of lucent lesion of the S3 vertebral body. Increased conspicuity of ill-defined lucent lesions of the bilateral pelvis, one of which erodes the cortex (series 2 image 112). 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 Similar appearance of left posterior gluteal decubitus ulcer with similar sclerosis of the adjacent ischium. No definite cortical destruction or cortical erosions. Partial ankylosis of the right sacroiliac joint. Resulting Agency Comment Unexpected Finding Shoaib Barr MD IMG CT ORDERABLES documented in this encounter Visit Diagnoses Not on filedocumented in this encounter Care Teams Platinumsmith Relationship Specialty Start Date End Date Genevieve Baez MD [address] [place] [address] PCP - General Family Medicine 07/22/23 documented as of this encounter
--- OUTSIDE RECORDS SUMMARY | 2024-07-22 15:01 | XMS_ITS | Encounter Summary ---
Author Organization [place] [address] Care Team Providers Care Banbury Mixer Operator Name Role Phone Genevieve Baez MD Primary Care Provider [phone] Encounter Details Date Type Department Care Team (Late st Contact Info) Description 12/22/2023 10:29 AM EST - 12/22/2023 11:59 PM [facility] Hospital Encounter [facility] Lab [address] [place] [address] Shoaib Barr MD [address] [place] [address] Discharge Disposition: Home Social History Tobacco Use Types Packs/Day Years Used Date Smoking Tobacco: Never Smokeless Tobacco: Never Alcohol Use Standard Drinks/Week Comments Never 0 (1 standard drink = 0.6 oz pur e alcohol) [facility] Utilities Answer Date Recorded In [...] a nursing home (including now)? No 10/27/2023 DH IPV Inpatient [...] Date/Time Associated Diagnosis Comments BLOOD CULTURE Routine 12/22/2023 9:56 AM EST BLOOD CULTURE Routine 12/22/2023 9:25 AM EST URINE CULTURE Routine 12/22/2023 9:25 AM EST documented in this encounter Results * Blood culture (12/22/2023 9:56 AM EST) Blood Culture No growth at 5 days. [facility] Blood 12/22/2023 9:56 AM EST 12/22/2023 6:02 PM EST Narrative Resulting Agency Comment Spec In Lab Shoaib Barr MD MICROBIOLOGY - BLOOD ORDERABLES [facility] [place] [address] * (ABNORMAL) Urine culture (12/22/2023 9:25 AM EST) Urine Culture 50,000-99,000 cfu/ml mixed mucosal daphne Note: Culture shows multiple bacterial species suggesting mucosal contamination. (A) [facility] Urine 12/22/2023 9:25 AM EST 12/22/2023 5:58 PM EST Narrative Resulting Agency Comment Spec In Lab Shoaib Barr MD MICROBIOLOGY - GENER AL ORDERABLES Performing Organization Address City/[facility]/ZIP Co de Phone Number [facility] [address] * Blood culture (12/22/2023 9:25 AM EST) Blood Culture No growth at 5 days. [facility] Blood 12/22/2023 9:25 AM EST 12/22/2023 6:01 PM EST Narrative Resulting Agency Comment Spec In Lab Shoaib Barr MD MICROBIOLOGY - BLOOD ORDERABLES Performing Organization Address [facility] Co de Phone Number [facility] [place] [address] documented in this encounter Visit Diagnoses Not on filedocumented in this encounter Care Teams Banbury Mixer Operator Relationship Specialty Start Date End Date Genevieve Baez MD [address] [place] [address] PCP - General Family Medicine 07/22/23 documented as of this encounter
--- OUTSIDE RECORDS SUMMARY | 2024-07-22 15:01 | XMS_ITS | Encounter Summary ---
Author Organization [facility] [address] Care Team Providers Care Booking Clerk Name Role Phone Genevieve Baez MD Primary Care Provider [phone] Encounter Details Date Type Department Care Team (Late st Contact Info) Description 12/01/2023 9:48 PM EST - 12/01/2023 11:59 PM [facility] Hospital Encounter [facility] Lab [address] [place] [address] Shoaib Barr MD [address] [place] [address] Discharge Disposition: Home Social History Tobacco Use Types Packs/Day Years Used Date Smoking Tobacco: Never Smokeless Tobacco: Never Alcohol Use Standard Drinks/Week Comments Never 0 (1 standard drink = 0.6 oz pur e alcohol) [facility] Utilities Answer Date Recorded In [...] slept in a assisted (including now)? No 10/27/2023 DH IPV Inpatient [...] Procedure Name Priority Date/Time Associated Diagnosis Comments URINE CULTURE Routine 12/01/2023 9:01 PM EST documented in this encounter Results * (ABNORMAL) Urine culture (12/01/2023 9:01 PM EST) Urine Culture Greater than 100,000 cfu/ml Pseudomonas aeruginosa Greater than 100,000 cfu/ml Klebsiella pneumoniae (A) [facility] Organism Pseudomonas aeruginosa(A) [facility] Organism Klebsiella pneumoniae(A) [facility] Urine 12/01/2023 9:01 PM EST 12/02/2023 5:49 PM EST Narrative Resulting Agency Comment Spec In Lab Organism Antibiotic Method Susceptibility Pseudomonas aeruginosa Amikacin MICROSCAN METHOD Sensitive Pseudomonas [...] Sensitive Pseudomonas aeruginosa Tobramycin MICROSCAN METHOD Sensitive Klebsiella pneumoniae Amikacin VITEK 2 METHOD Sensitive [...] Sensitive Klebsiella pneumoniae Nitrofurantoin VITEK 2 METHOD Sensitive Klebsiella pneumoniae Piperacillin/Tazobactam VITEK 2 METHOD <=4: Sensitive Klebsiella pneumoniae Tetracycline VITEK 2 METHOD Sensitive Klebsiella pneumoniae Tobramycin VITEK 2 METHOD Sensitive Klebsiella pneumoniae Trimethoprim/Sulfa VITEK 2 METHO D Sensitive Shoaib Barr MD MICROBIOLOGY - [place] [address] documented in this encounter Visit Diagnoses Not on filedocumented in this encounter Care Teams Booking Clerk Relationship Specialty Start Date End Date Genevieve Baez MD [address] [place] [address] PCP - General Family Medicine 07/22/23 documented as of this encounter
--- OUTSIDE RECORDS SUMMARY | 2024-07-22 15:01 | XMS_ITS | Encounter Summary ---
Author Organization [facility] Address [facility] [place] [address] Care Team Providers Care Restaurant Hospitality Manager Name Role Phone Genevieve Baez MD Primary Care Provider [phone] Reason for Visit * Reason Comments Medication Refill Encounter Details Date Type Department Care Team (Late st Contact Info) Description 11/23/2023 Refill [place] [address] Jameel Joyce MD [facility] [place] [address] Social History Tobacco Use Types Packs/Day Years Used Date Smoking Tobacco: Never Smokeless Tobacco: Never Alcohol Use Standard Drinks/Week Comments Never 0 (1 standard drink = 0.6 oz pur e alcohol) [facility] Utilities Answer Date Recorded In the past 12 months has [employer] electric, gas, oil, or water company threatened [...] a senior care (including now)? No 10/27/2023 DH IPV Inpatient [...] on filedocumented in this encounter Care Teams Restaurant Hospitality Manager Relationship Specialty Start Date End Date Genevieve Baez MD [address] [place] [address] PCP - General Family Medicine 07/22/23 documented as of this encounter
--- OUTSIDE RECORDS SUMMARY | 2024-07-22 15:01 | XMS_ITS | Encounter Summary ---
Author Organization [facility] [place] [address] Care Team Providers Care Canvas Baster Jumpbasting Name Role Phone Genevieve Baez MD Primary Care Provider [phone] Encounter Details Date Type Department Care Team (Late st Contact Info) Description 11/24/2023 Interpretation Only [facility] [address] [place] [address] Shoaib Barr MD [address] [place] [address] Social History Tobacco Use Types Packs/Day Years Used Date Smoking Tobacco: Never Smokeless Tobacco: Never Alcohol Use Standard Drinks/Week Comments Never 0 (1 standard drink = 0.6 oz pur e alcohol) [facility] Utilities Answer Date Recorded In the past 12 months has [employer] electric, gas, oil, or water company threatened [...] place to sleep or slept in a custodial (including now)? No 10/27/2023 IPV Inpatient Questions [...] CT ABDOMEN AND PELVIS W CONTRAST STAT 11/24/2023 10:35 PM EST documented in this encounter Results * CT Abdomen & Pelvis w Contrast (11/24/2023 10:35 PM EST) PT CLASS E RAD ADMITDTTM [id number] RAD PT RAD INFO [id number]^Potter^ Shoaib RAD EXAM DESC CTAPW^CT Abdomen and Pelvis w/ Contrast^RIS RAD Anatomical Region Laterality Modality Abdomen, Pelvis Computed Tomogra phy 11/24/2023 8:53 PM EST Impressions 11/25/2023 2:06 AM EST 1. ??No acute abdominal or pelvic process. 2. ??Right double-J ureteral stent in expected position. Nonobstructing right lower pole renal calculi. 3. ??Left gluteal sacral decubitus ulcer with associated ischial tuberosity sclerosis, unchanged. I have personally reviewed the image(s) and the resident's interpretation and agree with the findings, Rayna Flores MD at 11/25/2023 2:06 AM Thank you for letting us participate in the care of this patient. ??If you are a health care provider and have any questions regarding this report, please contact the number below. ??For patients who have questions please contact the health career development specialist that requested your imaging first. ? Electronically signed by: Rayna Flores MD, [facility] ([phone]), at 11/25/2023 2:06 AM Narrative 11/25/2023 2:06 AM EST EXAMINATION: CT Abdomen and Pelvis w/ Contrast CLINICAL HISTORY: Abd pain TECHNIQUE: Helical CT of the abdomen and pelvis following the intravenous administration of 100 mL of Omnipaque 350. COMPARISON: CT abdomen pelvis 10/28/2023, 10/24/2023 Chest radiograph, November 24, 2023 FINDINGS: Lower chest: Partially imaged linear right basilar and partial left lower lobe atelectasis, noted on prior chest radiographs in grossly unchanged from comparison CT. Bibasilar atelectasis present on comparison studies. Liver: Normal. Bile ducts: Not dilated. Gallbladder: Decompressed with punctate calcified gallstones. No pericholecystic inflammation. Pancreas: Normal. No duct dilation. Spleen: Normal. Adrenals: Normal. Kidneys: Symmetric enhancement. Right double-J ureteral stent with proximal end coiled in the right upper pole and distal end coiled within the urinary bladder. Several sub-5 mm nonobstructing right lower pole calculi. No right hydronephrosis or hydroureter. No left renal calculi, hydronephrosis or hydroureter. Urinary Bladder: Decompressed with circumferential wall thickening and the suprapubic catheter and distal and of the right ureteral stent in place.. Vasculature: No aneurysm. Major veins are patent.. Lymph Nodes: No enlarged lymph nodes. Bowel: Mild gastric distention with a small amount of layering fluid and food material. Small bowel bowel is decompressed and grossly normal. Moderate stool within normal large bowel. Peritoneum: No free air. No free or loculated fluid collection. Abdominal wall: Rectus abdominis diastases. Midline suprapubic catheter tract is intact without adjacent inflammation or collection. Reproductive organs: Normal. Osseous structures and soft tissues: Straightening of the normal lumbar lordosis. Mid to lower lumbar degenerative change and bilateral facet arthropathy. Degenerative changes of the bilateral sacroiliac and bilateral hip joints are noted. Similar appearance of left buttock decubitus ulceration extending deep to the left ischial tuberosity, with associated sclerosis, chronic and unchanged. Procedure Note Rayna Flores MD - 11/25/2023 EXAMINATION: CT Abdomen and Pelvis w/ Contrast CLINICAL HISTORY: Abd pain TECHNIQUE: Helical CT of the abdomen and pelvis following theintravenous administration of 100 mL of Omnipaque 350. COMPARISON: CT abdomen pelvis 10/28/2023, 10/24/2023 Chest radiograph, November 24, 2023 FINDINGS: Lower chest: Partially imaged linear right basilar and partial left lowerlobe atelectasis, noted on prior chest radiographs in grossly unchanged from comparison CT. Bibasilar atelectasis present on comparison studies. Liver: Normal. Bile ducts: Not dilated. Gallbladder: Decompressed with punctate calcified gallstones. Nopericholecystic inflammation. Pancreas: Normal. No duct dilation. Spleen: Normal. Adrenals: Normal. Kidneys: Symmetric enhancement. Right double-J ureteral stent withproximal end coiled in the right upper pole and distal end coiled within the urinarybladder. Several sub-5 mm nonobstructing right lower pole calculi. No right hydronephrosis or hydroureter. No left renal calculi, hydronephrosis or hydroureter. Urinary Bladder: Decompressed with circumferential wall thickening andthe suprapubic catheter and distal and of the right ureteral stent inplace.. Vasculature: No aneurysm. Major veins are patent.. Lymph Nodes: No enlarged lymph nodes. Bowel: Mild gastric distention with a small amount of layering fluid andfood material. Small bowel bowel is decompressed and grossly normal. Moderatestool within normal large bowel. Peritoneum: No free air. No free or loculated fluid collection. Abdominal wall: Rectus abdominis diastases. Midline suprapubic cathetertract is intact without adjacent inflammation or collection. Reproductive organs: Normal. Osseous structures and soft tissues: Straightening of the normal lumbar lordosis. Mid to lower lumbar degenerative change and bilateral facet arthropathy. Degenerative changes of the bilateral sacroiliac andbilateral hip joints are noted. Similar appearance of left buttock decubitusulceration extending deep to the left ischial tuberosity, with associatedsclerosis, chronic and unchanged. IMPRESSION 1. No acute abdominal or pelvic process. 2. Right double-J ureteral stent in expected position. Nonobstructingright lower pole renal calculi. 3. Left gluteal sacral decubitus ulcer with associated ischialtuberosity sclerosis, unchanged. I have personally reviewed the image(s) and the resident's interpretationand agree with the findings, Rayna Flores MD at 11/25/2023 2:06 AM Thank you for letting us participate in the care of this patient. If youare a health care provider and have any questions regarding this report,please contact the number below. For patients who have questions please contactthe health career development specialist that requested your imaging first. Electronically signed by: Rayna Flores MD, [facility]([phone]), at 11/25/2023 2:06 AM Shoaib Barr MD IMG CT ORDERABLES documented in this encounter Visit Diagnoses Not on filedocumented in this encounter Care Teams Canvas Baster Jumpbasting Relationship Specialty Start Date End Date Genevieve Baez MD [address] [place] [address] PCP - General Family Medicine 07/22/23 documented as of this encounter
--- OUTSIDE RECORDS SUMMARY | 2024-07-22 15:01 | XMS_ITS | Encounter Summary ---
Author Organization [facility] [place] [address] Care Team Providers Care Concrete Pump Operator Helper Name Role Phone Genevieve Baez MD Primary Care Provider [phone] Encounter Details Date Type Department Care Team (Late st Contact Info) Description 12/22/[address] [facility] [address] [place] [address] Shoaib Barr MD [address] [place] [address] Social History Tobacco Use Types Packs/Day Years Used Date Smoking Tobacco: Never Smokeless Tobacco: Never Alcohol Use Standard Drinks/Week Comments Never 0 (1 standard drink = 0.6 oz pur e alcohol) [facility] Utilities Answer Date Recorded In the past 12 months has [employer] electric, gas, oil, or water company threatened [...] slept in a snf (including now)? No 10/27/2023 IPV Inpatient Questions [...] Diagnosis Comments XR CHEST ONE VIEW STAT 12/22/2023 9:3 0 AM EST documented in this encounter Results * XR Chest One View (12/22/2023 9:30 AM EST) PT CLASS E RAD ADMITDTTM [id number] RAD PT RAD INFO [id number]^Potter^ Shoaib RAD EXAM DESC XCXR1^XR Chest 1 View^RIS RAD Anatomical Region Laterality Modality Chest N/A Radiographic Gricel ging 12/22/2023 9:22 AM EST Impressions 12/22/2023 10:54 AM EST Persistent at least partial left lower lobe collapse I have personally reviewed the image(s) and the resident's interpretation and agree with the findings, Rajinder Eric MD at 12/22/2023 10:54 AM Thank you for letting us participate in the care of this patient. ??If you are a health care provider and have any questions regarding this report, please contact the number below. ??For patients who have questions please contact the health care rep that requested your imaging first. ? Narrative 12/22/2023 10:54 AM EST EXAMINATION: XR Chest 1 View CLINICAL HISTORY: Shortness of breath TECHNIQUE: AP view of the chest. COMPARISON: None FINDINGS: Left chest wall port with tip at the lower SVC. The patient's hand projects over the right lung base. There is persistent at least partial left lower lobe collapse No pneumothorax. No pleural effusion. The cardiomediastinal contours are stable. Partially visualized cervical fusion hardware. Procedure Note Rajinder Eric MD - 12/22/2023 EXAMINATION: XR Chest 1 View CLINICAL HISTORY: Shortness of breath TECHNIQUE: AP view of the chest. COMPARISON: None FINDINGS: Left chest wall port with tip at the lower SVC. The patient's hand projects over the right lung base. There is persistentat least partial left lower lobe collapse No pneumothorax. No pleuraleffusion. The cardiomediastinal contours are stable. Partially visualized cervical fusion hardware. IMPRESSION Persistent at least partial left lower lobe collapse I have personally reviewed the image(s) and the resident's interpretationand agree with the findings, Rajinder Eric MD at 12/22/2023 10:54 AM Thank you for letting us participate in the care of this patient. If youare a health care provider and have any questions regarding this report,please contact the number below. For patients who have questions please contactthe health care rep that requested your imaging first. Shoaib Barr MD IMG DX ORDERABLES documented in this encounter Visit Diagnoses Not on filedocumented in this encounter Care Teams Concrete Pump Operator Helper Relationship Specialty Start Date End Date Genevieve Baez MD [address] [place] [address] PCP - General Family Medicine 07/22/23 documented as of this encounter
--- OUTSIDE RECORDS SUMMARY | 2024-07-22 15:01 | XMS_ITS | Encounter Summary ---
Author Organization [facility] [place] [address] Care Team Providers Care Rehabilitator Name Role Phone Genevieve Baez MD Primary Care Provider [phone] Encounter Details Date Type Department Care Team (Late st Contact Info) Description 12/12/2023 Interpretation Only [address] [address] Vish Leija Jr., MD [address] [place], [place] [address] Social History Tobacco Use Types Packs/Day Years Used Date Smoking Tobacco: Never Smokeless Tobacco: Never Alcohol Use Standard Drinks/Week Comments Never 0 (1 standard drink = 0.6 oz pur e alcohol) [facility] Utilities Answer Date Recorded In the past 12 months has [employer] electric, gas, oil, or water company threatened [...] slept in a fpc (including now)? No 10/27/2023 IPV Inpatient Questions [...] Diagnosis Comments XR CHEST ONE VIEW STAT 12/12/2023 4:5 6 PM EST documented in this encounter Results * XR Chest One View (12/12/2023 4:56 PM EST) PT CLASS E RAD ADMITDTTM [id number] RAD PT RAD INFO [id number]^Leija^G erald^J RAD EXAM DESC XCXR1^XR Chest 1 View^RIS RAD Anatomical Region Laterality Modality Chest N/A Radiographic Gricel ging 12/12/2023 4:56 PM EST Impressions 12/12/2023 5:06 PM EST Left lower lobe atelectasis and trace left pleural effusion. Thank you for letting us participate in the care of this patient. ??If you are a health care provider and have any questions regarding this report, please contact the number below. ??For patients who have questions please contact the health adult day care worker that requested your imaging first. ? Narrative 12/12/2023 5:06 PM EST EXAMINATION: XR Chest 1 View CLINICAL HISTORY: Fever TECHNIQUE: Supine chest x-ray COMPARISON: November 24, 2023 FINDINGS: Left subclavian MediPort catheter intact with tip position at the superior vena cava. Incompletely imaged cervical thoracic fusion hardware. Trace left pleural effusion and left lower lobe atelectasis. No consolidation. No pneumothorax. Visualized cardiac increased hilar contours are within normal limits. No displaced rib fracture. No subphrenic free air. Procedure Note Iram Brooke MD - 12/12/2023 EXAMINATION: XR Chest 1 View CLINICAL HISTORY: Fever TECHNIQUE: Supine chest x-ray COMPARISON: November 24, 2023 FINDINGS: Left subclavian MediPort catheter intact with tip position at the superiorvena cava. Incompletely imaged cervical thoracic fusion hardware. Trace leftpleural effusion and left lower lobe atelectasis. No consolidation. Nopneumothorax. Visualized cardiac increased hilar contours are within normal limits. No displaced rib fracture. No subphrenic free air. IMPRESSION Left lower lobe atelectasis and trace left pleural effusion. Thank you for letting us participate in the care of this patient. If youare a health care provider and have any questions regarding this report,please contact the number below. For patients who have questions please contactthe health adult day care worker that requested your imaging first. Vish Leija Jr., MD IMG DX ORDERABLES documented in this encounter Visit Diagnoses Not on filedocumented in this encounter Care Teams Rehabilitator Relationship Specialty Start Date End Date Genevieve Baez MD [address] [place] [address] PCP - General Family Medicine 07/22/23 documented as of this encounter
--- OUTSIDE RECORDS SUMMARY | 2024-07-22 15:01 | XMS_ITS | Encounter Summary ---
Author Organization [facility] [place] [address] Care Team Providers Care Control Tower Radio Operator Name Role Phone Genevieve Baez MD Primary Care Provider [phone] Encounter Details Date Type Department Care Team (Late st Contact Info) Description 11/24/2023 Interpretation Only [facility] [address] [place] [address] Shoaib Barr MD [address] [place] [address] Social History Tobacco Use Types Packs/Day Years Used Date Smoking Tobacco: Never Smokeless Tobacco: Never Alcohol Use Standard Drinks/Week Comments Never 0 (1 standard drink = 0.6 oz pur e alcohol) [facility] Utilities Answer Date Recorded In the past 12 months has [employer] electric, gas, oil, or water company threatened [...] to sleep or slept in a senior living (including now)? No 10/27/2023 IPV Inpatient Questions [...] Diagnosis Comments XR CHEST ONE VIEW STAT 11/24/2023 11: 00 PM EST documented in this encounter Results * XR Chest One View (11/24/2023 11:00 PM EST) PT CLASS E RAD ADMITDTTM [id number] RAD PT RAD INFO [id number]^Potter^ Shoaib RAD EXAM DESC XCXR1^XR Chest 1 View^RIS RAD Anatomical Region Laterality Modality Chest N/A Radiographic Gricel ging 11/24/2023 11:0 0 PM EST Impressions 11/24/2023 11:07 PM EST * ??Improved but not resolved right lower lung hazy opacities, likely treated pneumonia. * ??Left basilar linear opacity, likely atelectasis. Thank you for letting us participate in the care of this patient. ??If you are a health care provider and have any questions regarding this report, please contact the number below. ??For patients who have questions please contact the health cardiac care unit nurse that requested your imaging first. ? Electronically signed by: Caleb Branch MD, [facility] ([phone]), at 11/24/2023 11:07 PM Narrative 11/24/2023 11:07 PM EST EXAMINATION: XR Chest 1 View CLINICAL HISTORY: sob TECHNIQUE: Single frontal view of the chest. 2 images. COMPARISON: Chest x-ray 11/04/2023. FINDINGS: Partially visualized cervical spine fusion hardware. Left chest port catheter terminates in the SVC. Trachea, mainstem bronchi, cardiomediastinal silhouette, idania, and pulmonary vascular markings are within normal limits. Improved but not resolved right lower lung hazy opacities. Left basilar linear opacity, likely atelectasis. No pleural effusion or pneumothorax. Normal upper abdomen. Procedure Note Krishan Branch MD - 11/24/2023 EXAMINATION: XR Chest 1 View CLINICAL HISTORY: sob TECHNIQUE: Single frontal view of the chest. 2 images. COMPARISON: Chest x-ray 11/04/2023. FINDINGS: Partially visualized cervical spine fusion hardware. Left chest portcatheter terminates in the SVC. Trachea, mainstem bronchi, cardiomediastinalsilhouette, idania, and pulmonary vascular markings are within normal limits. Improvedbut not resolved right lower lung hazy opacities. Left basilar linear opacity,likely atelectasis. No pleural effusion or pneumothorax. Normal upper abdomen. IMPRESSION * Improved but not resolved right lower lung hazy opacities, likelytreated pneumonia. * Left basilar linear opacity, likely atelectasis. Thank you for letting us participate in the care of this patient. If youare a health care provider and have any questions regarding this report,please contact the number below. For patients who have questions please contactthe health cardiac care unit nurse that requested your imaging first. Shoaib Barr MD IMG DX ORDERABLES documented in this encounter Visit Diagnoses Not on filedocumented in this encounter Care Teams Control Tower Radio Operator Relationship Specialty Start Date End Date Genevieve Baez MD [address] [place] [address] PCP - General Family Medicine 07/22/23 documented as of this encounter
--- OUTSIDE RECORDS SUMMARY | 2024-07-22 15:01 | XMS_ITS | Encounter Summary ---
Author Organization [facility] [place] [address] Care Team Providers Care Trolley Car Mechanic Name Role Phone Genevieve Baez MD Primary Care Provider Encounter Details Date Type Department Care Team (Late st Contact Info) Description 11/24/2023 Interpretation Only [facility] [address] [place] [address] Shoaib Barr MD [address] [place] [address] Social History Tobacco Use Types Packs/Day Years Used Date Smoking Tobacco: Never Smokeless Tobacco: Never Alcohol Use Standard Drinks/Week Comments Never 0 (1 standard drink = 0.6 oz pur e alcohol) [facility] Utilities Answer Date Recorded In the past 12 months has [employer] electric, gas, oil, or water company threatened [...] place to sleep or slept in a longterm (including now)? No 10/27/2023 DH IPV Inpatient [...] on filedocumented in this encounter Care Teams Trolley Car Mechanic Relationship Specialty Start Date End Date Genevieve Baez MD [address] [place] [address] PCP - General Family Medicine 07/22/23 documented as of this encounter
--- OUTSIDE RECORDS SUMMARY | 2024-07-22 15:01 | XMS_ITS | Encounter Summary ---
Author Organization [facility] [place] [address] Care Team Providers Care Assistant District Attorney Name Role Phone Genevieve Baez MD Primary Care Provider [phone] Encounter Details Date Type Department Care Team (Late st Contact Info) Description 12/12/2023 5:22 PM EST - 12/12/2023 11:59 PM [facility] Hospital Encounter [facility] [address] [place] [address] Vish Leija Jr., MD [address] [place] [address] Thom Albrecht MD [address] [place] [address] Discharge Disposition: Home Social History Tobacco Use Types Packs/Day Years Used Date Smoking Tobacco: Never Smokeless Tobacco: Never Alcohol Use Standard Drinks/Week Comments Never 0 (1 standard drink = 0.6 oz pur e alcohol) [facility] Utilities Answer Date Recorded In the past 12 months has [email or web address] electric, gas, oil, or water company threatened [...] place to sleep or slept in a fci (including now)? No 10/27/2023 DH IPV Inpatient [...] Date/Time Associated Diagnosis Comments URINE CULTURE Routine 12/13/2023 5:15 AM EST BLOOD CULTURE Routine 12/12/2023 4:46 PM EST BLOOD CULTURE Routine 12/12/2023 4:46 PM EST documented in this encounter Results * (ABNORMAL) Urine culture (12/13/2023 5:15 AM EST) Urine Culture 50,000-99,000 cfu/ml mixed Gram Negative organisms Note: Culture shows multiple bacterial species suggesting mucosal contamination. (A) [facility] Urine 12/13/2023 5:15 AM EST 12/13/2023 12:21 PM EST Narrative Resulting Agency Comment Spec In Lab Thom Albrecht MD MICROBIOLOGY - GENER AL ORDERABLES [facility] [place] [address] * Blood culture (12/12/2023 4:46 PM EST) Blood Culture No growth at 5 days. [facility] Blood 12/12/2023 4:46 PM EST 12/13/2023 1:49 PM EST Comment:R Hand #2 Narrative Resulting Agency Comment Spec In Lab Vish Leija Jr., MD MICROBIOLOGY - BL OOD ORDERABLES Performing Organization Address [facility] [place] [address] * Blood culture (12/12/2023 4:46 PM EST) Blood Culture No growth at 5 days. [facility] Blood 12/12/2023 4:46 PM EST 12/13/2023 1:51 PM EST Comment:L AC #1 Narrative Resulting Agency Comment Spec In Lab Vish Leija Jr., MD MICROBIOLOGY - BL OOD ORDERABLES Performing Organization Address [facility] [place] [address] documented in this encounter Visit Diagnoses Not on filedocumented in this encounter Care Teams Assistant District Attorney Relationship Specialty Start Date End Date Genevieve Baez MD [address] [place] [address] PCP - General Family Medicine 07/22/23 documented as of this encounter
--- OUTSIDE RECORDS SUMMARY | 2024-07-22 15:02 | XMS_ITS | Encounter Summary ---
Author Organization [facility] Address [facility] [place] [address] Care Team Providers Care Oil Expeller Operator Name Role Phone Genevieve Baez MD Primary Care Provider [phone] Reason for Visit * Auth/Cert (Routine) Specialty Diagnoses / Procedures Referred By Contac t Referred To Contact Diagnoses Septic shock Sepsis/Obstructive stone Procedures Emergency IPI Yoel Sethi Jr., MD [facility] [place] [address] [facility] Referral ID Status Reason Start Date Expiration Date Visits Re quested Visits Authorized [id number] 1 1 Encounter Details Date Type Department Care Team (Late st Contact Info) Description 10/25/2023 10:44 AM EST - 10/25/2023 11:59 PM EST Hospital Encounter [facility] [address] [place] [id number] Shoaib Barr MD [address] [place] [address] Discharge Disposition: Home Social History Tobacco Use [...] Every 8 hours as needed. 01/13/2021 L. acidophilus/L.bulgar icus (FLORANEX ORAL) Take 1 tablet by mouth [...] needed for Sleep. 30 tablet 11/09/2023 03/21/2024 piperacillin-tazobac bermeo (Zosyn) 3.375 gram injection solution Inject 4.5 g into the vein 3 times daily for 8 days. Extended infusion over 4 hours 48 each 11/01/2023 11/09/2023 piperacillin-tazobac bermeo (Zosyn) 3.375 gram injection solution Inject 3.375 g into the vein 3 times daily for 8 days. 24 each 10/31/2023 11/01/2023 sodium chloride 0.9 %, flush, (BD PosiFlush Normal Saline 0.9) Syringe Inject 10 mLs into the vein as needed (For Line Patency - See Instructions). FLUSH PROTOCOL WITH MEDICATIONS ([facility]): Before med infusion: flush with NS 10 mL. After med infusion: flush with NS 10 mL then heparin (100 units/mL) 3 mL. Access port with non-coring needle weekly and PRN. // WITH BLOOD WITHDRAWAL: Before blood draw: flush with NS 10 mL. After blood draw: flush with NS 20 mL and then heparin (100 units/mL) 3 mL. // FLUSH WITHOUT MED (EACH LUMEN): Every month & PRN: flush with NS 10 mL and then heparin (100 units/mL) 5 mL. 100 each 10/31/2023 11/09/2023 heparin, poricine (PF) (100 unit/mL) syringe 3-5 mLs by Intercatheter route as needed (For Line Patency - See Instructions). FLUSH PROTOCOL WITH MEDICATIONS ([facility]): Before med infusion: flush with NS 10 mL. After med infusion: flush with NS 10 mL then heparin (100 units/mL) 3 mL. Access port with non-coring needle weekly and PRN. // WITH BLOOD WITHDRAWAL: Before blood draw: flush with NS 10 mL. After blood draw: flush with NS 20 mL and then heparin (100 units/mL) 3 mL. // FLUSH WITHOUT MED (EACH LUMEN): Every month & PRN: flush with NS 10 mL and then heparin (100 units/mL) 5 mL. 100 each 10/31/2023 11/09/2023 alteplase (Cathflo) 2 mg Recon Soln Instill reconstituted alteplase (Cathflo) 2 mg per instillation (based on volume of lumen). May repeat x1 per occlusion 1 each 10/31/2023 11/09/2023 lactulose (Chronulac) 10 gram/15 mL Solution Take [...] BY MOUTH THREE TIMES A DAY 01/24/2021 03/17/20 senna (Senokot) 8.6 mg Tablet Take 2 [...] Date/Time Associated Diagnosis Comments BLOOD CULTURE Routine 10/24/2023 8:57 PM EST URINE CULTURE Routine 10/24/2023 8:57 PM EST documented in this encounter Results * (ABNORMAL) Blood culture (10/24/2023 8:57 PM EST) Blood Culture Pseudomonas aeruginosa detected by PCR Isolate saved. If future testing is required, contact the Microbiology Wave Soldering Machine Operator. (A) [facility] Gram Stain Aerobic Growth detected in aerobic bottle. Gram Negative Rods seen Results called to and read back by Jose (Femi) [facility] Organism Pseudomonas aeruginosa(A) [facility] Organism Gram Negative Rods(A) [facility] Blood 10/24/2023 8:57 PM EST 10/25/2023 12:36 PM EST Narrative Resulting Agency Comment Spec [...] METHOD Sensitive Shoaib Barr MD MICROBIOLOGY - BLOOD ORDERABLES [facility] [place] [place] [address] * (ABNORMAL) Urine culture (10/24/2023 8:57 PM EST) Urine Culture Greater than 100,000 cfu/ml Proteus mirabilis Greater than 100,000 cfu/ml Pseudomonas aeruginosa (A) [facility] Organism Proteus mirabilis(A) [facility] Organism Pseudomonas aeruginosa(A) [facility] Urine 10/24/2023 8:57 PM EST 10/25/2023 12:38 PM EST Narrative Resulting Agency Comment Spec In Lab Organism Antibiotic Method Susceptibility Proteus mirabilis Amikacin VITEK 2 METHOD Sensitive Proteus mirabilis Ampicillin + Sulbactam VITEK 2 METHO D Resistant Proteus mirabilis Aztreonam VITEK 2 METHOD Sensitive Proteus mirabilis Cefazolin VITEK 2 METHOD Sensitive Proteus mirabilis Cefepime VITEK 2 METHOD <=1: Sensitive Proteus mirabilis Ceftazidime VITEK 2 METHOD <=1: Sensitive Proteus mirabilis Ceftriaxone VITEK 2 METHOD Sensitive Proteus mirabilis Gentamicin VITEK 2 METHOD Sensitive Proteus mirabilis Levofloxacin VITEK 2 METHOD Resistant Comment: Levofloxacin and Ciprofloxacin may not adequately treat infections in critically ill patients even when isolates test susceptible in the laboratory. Contact Infectious Disease before using in critically ill patients. Proteus mirabilis Meropenem VITEK 2 METHOD 1: Sensitive Proteus mirabilis Nitrofurantoin VITEK 2 METHOD Resistant Proteus mirabilis Piperacillin/Tazobactam VITEK 2 METH OD 8: Sensitive Proteus mirabilis Tetracycline VITEK 2 METHOD Resistant Proteus mirabilis Tobramycin VITEK 2 METHOD Sensitive Proteus mirabilis Trimethoprim/Sulfa VITEK 2 METHOD Resistant Pseudomonas aeruginosa Amikacin MICROSCAN METHOD Sensitive Pseudomonas aeruginosa Aztreonam MICROSCAN METHOD Sensitive Pseudomonas aeruginosa Cefepime MICROSCAN METHOD <=2: Sensitive Pseudomonas aeruginosa Ceftazidime MICROSCAN METHOD <=2: Sensitive Pseudomonas aeruginosa Ciprofloxacin MICROSCAN METHOD Resistant Pseudomonas aeruginosa Levofloxacin MICROSCAN METHOD Resistant Comment: Levofloxacin and Ciprofloxacin may not adequately treat infections in critically ill patients even when isolates test susceptible in the laboratory. Contact Infectious Disease before using in critically ill patients. Pseudomonas aeruginosa Meropenem MICROSCAN METHOD <=1: Sensitive Pseudomonas aeruginosa Piperacillin/Tazobactam MICROSC AN METHOD <=8: Sensitive Pseudomonas aeruginosa Tobramycin MICROSCAN METHOD Sensitive Shoaib Barr MD MICROBIOLOGY - [facility] AL ORDERABLES Performing Organization Address City/State/[facility] [place] [address] documented in this encounter Visit Diagnoses Not on filedocumented in this encounter Care Teams Oil Expeller Operator Relationship Specialty Start Date End Date Genevieve Baez MD [address] [place] [address] PCP - General Family Medicine 07/22/23 documented as of this encounter
--- OUTSIDE RECORDS SUMMARY | 2024-07-22 15:02 | XMS_ITS | Encounter Summary ---
Author Organization Replaced By [facility] Address [facility] [place] [address] Care Team Providers Care Industrial Plant Custodian Name Role Phone Genevieve Baez MD Primary Care Provider [phone] Encounter Details Date Type Department Care Team (Late st Contact Info) Description 11/06/2023 [place] [id number] Jordana Canchola MD [facility] [place] [address] Social History Tobacco Use Types Packs/Day Years Used Date Smoking Tobacco: Never Smokeless Tobacco: Never Alcohol Use Standard Drinks/Week Comments Never 0 (1 standard drink = 0.6 oz pur e alcohol) [facility] Utilities Answer Date Recorded In the past 12 months has [employer] electric, gas, oil, or water company threatened [...] on file documented as of this encounter Progress Notes * Jordana Canchola MD - 11/06/2023 8:44 PM EST Patient s/p stent placement on 10/25/23. Requested Urology secretary receptionist to make appointment with Dr. Perez on 11/16/23 to discuss treatment of large burden stone. documented in this encounter Plan of Treatment Not on file documented as of this encounter Visit Diagnoses Not on filedocumented in this encounter Care Teams Industrial Plant Custodian Relationship Specialty Start Date End Date Genevieve Baez MD [address] [place] [address] PCP - General Family Medicine 07/22/23 documented as of this encounter
--- OUTSIDE RECORDS SUMMARY | 2024-07-22 15:02 | XMS_ITS | Encounter Summary ---
[place] [address] Care Team Providers Care Lead Relay Tester Name Role Phone Genevieve Baez MD Primary Care Provider [phone] Reason for Visit * Auth/Cert (Routine) Specialty Diagnoses / Procedures Referred By Contac t Referred To Contact Diagnoses Septic shock Sepsis/Obstructive stone Procedures Emergency IPI Yoel Sethi Jr., MD [facility] [place] [address] [facility] Referral ID Status Reason Start Date Expiration Date Visits Re quested Visits Authorized [id number] 1 1 Encounter Details Date Type Department Care Team (Late st Contact Info) Description 10/25/2023 8:08 AM EST Anesthesia [place] [phone] Jude Tang MD Sohnen, Samantha, MD [facility] [place] [address] Anesthesia Record Procedure Summary Procedure Name Responsible Anesthesiologist Anesthesia Start Time Anesthesia Stop Time CYSTO, STENT PLACEMENT (WRVU 2.82) (Right: Ureter) Jude Tang MD 10/25/23 0808 10/25/23 1000 Events Date Time Event Comment 10/25/2023 0808 AN Verify 0808 Start 0808 An Start Data 0817 An Induction 0820 An Intubation 0830 Anesthesia Ready 0843 Procedure Start 0910 Procedure Stop 0917 Quick Note Waiting on ICU bed 0948 Extubation/LMA Out 1000 an stop data 1000 Recovery or ICU Handoff Irma ent care was transferred to the destination unit staff after review of the patient's medical history, current anesthetic/surgical status and plan, according to the Provider Handoff Checklist. 1000 Stop 1045 Meds Name Total Midazolam 2 mg fentaNYL 100 mcg Propofol 100 mg Rocuronium 70 mg NORepinephrine (Levophed) (16 mcg/mL) in dextrose 5% 250 mL infusion 339 mcg ceFEPime (Maxipime) 2g vial attach to sodium chloride 0.9% 100 mL Mini-Bag Plus 2 g 2 g ketamine 10 mg/mL 30 mg vasopressin 0.2 units/mL INF 1.72 Units heparin 5000 units SQ 5,000 Units dexmedeTOMIDine 16 mcg ondansetron 4 mg sugammadex 200 mg lactated ringers 1,000 mL * Agents Name O2 * Blood No blood administrations on file. Lines, Drains, and Airways Type Details Placement Removal Enterostomy Tube 11/05/20; 0204; PEG (percutaneous endoscopic gastrostomy); LUQ (left upper quadrant); feeding; 20 Surinamese ; 03/17/24; 1606 (not present upon assessment) 11/05/20 0204 by Anita Onofre RN 03/17/24 1606 by Meron Cardona RN Urethral Catheter 11/18/20; 1020; Acut e urinary retention or obstruction; indwelling single lumen catheter; 14; inserted at this facility; 1; none; drainage bag to dependent drainage; LDA not present upon assessment; 03/17/24; 1606 11/18/20 1020 by Deysi Austin RN 03/17/24 1606 by Meron Cardona RN PIV 10/25/23; 20 gauge; metacarpal vein (top of hand), left; Anatomical Landmarks; no longer indicated, removed per policy/procedure, site care per policy/procedure, catheter/device intact; 11/09/23; 1403 10/25/23 0000 by Tari Sherman RN 11/09/23 1403 by Trish Mueller LNA Urethral Catheter 10/25/23; Urologic surgery; indwelling double lumen catheter; 20; inserted at this facility; 10; drainage bag; 10/26/23; 0909 10/25/23 0000 by Cami Alvarado RN 10/26/23 0909 by Gustavo Gilbert RN Suprapubic Catheter 10/25/23; 20; insert ed at this facility; 10; drainage bag; 11/09/23; 1507 10/25/23 0000 by Cami Alvarado RN 11/09/23 1507 by Margarita Loomis RN PIV 10/25/23; 0600; [id number] catheter system; 18 gauge; median cubital vein (antecubital fossa), right; Anatomical Landmarks; no longer indicated, removed per policy/procedure, catheter/device intact; 10/31/23; 0935 10/25/23 0600 by Tari Sherman RN 10/31/23 0935 by Vanesa Rojas RN ETT Mask Ventilation: Adjunct (2); ETT Type: Cuffed, Oral; ETT Size: 8 mm; Gordillo Blade: 3; Attempts: 1; Laryngoscopy Grade: 1; Secured at Teeth: 24 cm; Inserted by: md елена; Removal Date: 10/25/23; Removal Time: 94410/25/23 08 by Jude Tang MD 10/25/23 0945 by Gustavo Gilbert RN Arterial Line 10/25/23; 0824; radi al artery, left; 20 gauge; Guidewire, Ultrasound Guidance; Yes - US guidance used but Image NOT saved; continuous blood pressure monitoring, frequent blood gas measurement; Sterile Prep, Sterile Gloves; 10/25/23; 1015 10/25/23 0824 by Jude Tang MD 10/25/23 1015 by Gustavo Gilbert RN documented in this encounter Social History Tobacco Use Types Packs/Day Years Used Date Smoking Tobacco: Never Assessed Sex and Gender Information Value Date Recorded Sex Assigned at Not on file Gender Identity Not on file Sexual Orientation Not on file documented as of this encounter OR Notes * Anesthesia Postprocedure Evaluation - Jude Tang MD - 10/25/2023 10:44 AM EST Department of Anesthesiology Post-procedure Note Patient: Nighat Velasquez Procedure Summary Date: 10/25/23 Room / Location: [facility] OR [address] [place] [address] MAIN OR Anesthesia Start: 08 Anesthesia Stop: 1000 Procedures: CYSTO, STENT PLACEMENT (WRVU 2.82) (Right: Ureter) CYSTOSTOMY TUBE, CHANGE (WRVU 0.9) (Bladder) CYSTO, REMOVAL OF STENT, FOREIGN BODY OR CALCULUS, SIMPLE (WRVU 2.81) (Bladder) Diagnosis: (septic stone) Surgeons: Alfonso Brian MD Responsible Provider: Jude Tang MD Anesthesia Type: general ASA Status: 4 - Emergent All Anesthesia Providers: Anesthesiologist: Jude Tang MD Vitals Value Taken Time BP 125/67 10/25/23 1030 Temp 37 ??C (98.6 ??F) 10/25/23 0953 Pulse 82 10/25/23 1043 Resp 13 10/25/23 1043 SpO2 95 % 10/25/23 1043 Pain Level Vitals shown include unfiled device data. Patient Location: ICU Level of Consciousness: Disoriented or Confused Pain Management: Satisfactory Analgesia PONV: None Cardiovascular Status: Hemodynamically Stable Respiratory Status: At Baseline Postoperative Fluid Status: Possible Anesthetic Complications: NONE apparent at time of evaluation Final Primary Anesthesia Type: General (The anesthetic type performed was the same as planned.) Comments: * Anesthesia Preprocedure Evaluation - Jude Tang MD - 10/25/2023 8:00 AM EST Pre-Anesthesia Evaluation for: Nighat Velasquez a 58 y.o. male. Procedure(s): CYSTO, STENT PLACEMENT (WRVU 2.82) Patient Active Problem List Diagnosis Date Noted ??? *Septic shock 10/25/2023 No past medical history on file. No past surgical history on file. Social History Tobacco Use ??? Smoking status: Not on file ??? Smokeless tobacco: Not on file Substance Use Topics ??? Alcohol use: Not on file Social History Substance and Sexual Activity Drug Use Not on file Not on File Medications: MAR and/or home medications have been reviewed. Physical Exam: Preprocedure Vitals Current as of 10/25/23 0800 BP: 133/92 Pulse: 92 Resp: 12 SpO2: 94 Temp: 37.4 ??C (99.4 ??F) Height: 188 cm (6' 2) (10/25/23) Weight: 81.7 kg (180 lb 0.1 oz) (10/25/23) BMI: 23.11 IBW: 82.2 kg (181 lb 4.8 oz) Last edited 10/25/23 0715 by TM Currently displaying vitals information from multiple entries within 180 minutes of most recent vitals. Airway Assessment: Mallampati: (Unable to Assess) TM distance: >3 FB Neck ROM: full Cardiovascular Assessment: Rhythm: regular Rate: normal system normal Pulmonary Assessment: (+) rales Dental Assessment: Misc Assessment: Last Filed Perioperative Cognitive Screening None Anesthesia Plan: ASA 4 emergent general, 58yo patient with TBI and quadrapelegia, septic with infected renal stone, 15 of levo, aggitated, confused, unable to contact DPOA. GA ETT Art line possible central line Informed Consent: Anesthesia Screening documented in this encounter Plan of Treatment Not on file documented as of this encounter Visit Diagnoses Not on filedocumented in this encounter Administered Medications Inactive Administered Medications - up to 3 most recent administrations Medication Order MAR Action Action Date Dose Rate Site ceFEPime (Maxipime) 2g vial attach to sodium chloride 0.9% 100 mL Mini-Bag Plus 2 g 2 g, Intravenous, EVERY 8 HOURS, First dose on 10/25/23 at 0700, Until Discontinued, Administer over 3 Hours, Indication for (Active or Suspected): Bacteremia/Sepsis New Bag 10/26/2023 6:53 AM EST 2 g 33.3 mL/hr New Bag 10/25/2023 10:50 PM EST 2 g 33.3 mL/hr New Bag 10/25/2023 3:18 PM EST 2 g 33.3 mL/hr dexmedeTOMIDine (Precedex) (4 mcg/mL) bolus injection (Anesthsia) Intravenous, PRN, Starting on 10/25/23 at 0851, Until 10/25/23 at 1030, Anesthesia Intra-op, Routine Given 10/25/2023 9:13 AM EST 4 mcg Given 10/25/2023 8:54 AM EST 4 mcg Given 10/25/2023 8:51 AM EST 8 mcg fentaNYL (pf) (50 mcg/mL) multi-dose injection Intravenous, PRN, Starting on 10/25/23 at 0815, Until 10/25/23 at 1030, Anesthesia Intra-op, Routine Given 10/25/2023 8:51 AM EST 25 mcg Given 10/25/2023 8:46 AM EST 50 mcg Given 10/25/2023 8:15 AM EST 25 mcg heparin (pf) (porcine) (5,000 unit/mL) multidose injection Subcutaneous, PRN, Starting on 10/25/23 at 0849, Until 10/25/23 at 1030, Anesthesia Intra-op, Routine Given 10/25/2023 8:49 AM EST 5,000 Uni ts ketamine (Ketalar) (10 mg/mL) IV bolus injection (Anesthesia) Intravenous, PRN, Starting on 10/25/23 at 0813, Until 10/25/23 at 1030, Anesthesia Intra-op Given 10/25/2023 8:17 AM EST 10 mg Given 10/25/2023 8:15 AM EST 10 mg Given 10/25/2023 8:13 AM EST 10 mg lactated ringers infusion Intravenous, CONTINUOUS PRN, Starting on 10/25/23 at 0808, Until 10/25/23 at 1030, Anesthesia Intra-op New Bag 10/25/2023 8:08 AM EST midazolam (pf) (Versed) (1 mg/mL) multi-dose injection Intravenous, PRN, Starting on 10/25/23 at 0815, Until 10/25/23 at 1030, Anesthesia Intra-op, Routine Given 10/25/2023 8:15 AM EST 2 mg NORepinephrine (Levophed) (16 mcg/mL) in dextrose 5% 250 mL infusion 0-100 mcg/min (0-375 mL/hr), Intravenous, CONTINUOUS, Starting on 10/25/23 at 0557, Until 10/26/23 at 1104, Titrate to keep MAP greater than 65 mmHg. Start at 7 mcg/min. Increase/decrease by 2 mcg/min every 3 minutes until goal reached. Do not exceed 200 mcg/min. Warning Vesicant/Irritant Medication, Routine Rate/Dose Verify 10/26/2023 2:00 AM EST 1 mcg/min 3.8 mL/hr Rate/Dose Verify 10/26/2023 12:00 AM EST 1 mcg/min 3.8 mL /hr Restarted 10/25/2023 11:02 PM EST 1 mcg/min 3.8 mL/hr ondansetron (pf) (Zofran) (2 mg/mL) injection Intravenous, PRN, Starting on 10/25/23 at 0854, Until 10/25/23 at 1030, Anesthesia Intra-op, Routine Given 10/25/2023 8:54 AM EST 4 mg propofoL (Diprivan) 10 mg/mL bolus injection (Anesthesia) Intravenous, PRN, Starting on 10/25/23 at 0817, Until 10/25/23 at 1030, Anesthesia Intra-op Given 10/25/2023 8:18 AM EST 50 mg Given 10/25/2023 8:17 AM EST 50 mg rocuronium (Zemuron) (10 mg/mL) multi-dose injection Intravenous, PRN, Starting on 10/25/23 at 0819, Until 10/25/23 at 1030, Anesthesia Intra-op, Routine Given 10/25/2023 8:19 AM EST 70 mg sugammadex (Bridion) 100 mg/mL injection Intravenous, PRN, Starting on 10/25/23 at 0913, Until 10/25/23 at 1030, Anesthesia Intra-op, Routine Given 10/25/2023 9:16 AM EST 100 mg Given 10/25/2023 9:13 AM EST 100 mg vasopressin (VASOSTRICT) 0.2 units/mL IV infusion (Anesthesia) Intravenous, CONTINUOUS PRN, Starting on 10/25/23 at 0832, Until 10/25/23 at 1030 Restarted 10/25/2023 8:59 AM EST 0.04 Units/min 12 mL/hr New Bag 10/25/2023 8:32 AM EST 0.04 Units/min 12 mL/hr documented in this encounter Care Teams Lead Relay Tester Relationship Specialty Start Date End Date Genevieve Baez MD [address] [place] [address] PCP - General Family Medicine 07/22/23 documented as of this encounter
--- OUTSIDE RECORDS SUMMARY | 2024-07-22 15:02 | XMS_ITS | Encounter Summary ---
[place] [address] Care Team Providers Care Welder Repair Name Role Phone Genevieve Baez MD Primary Care Provider [phone] Reason for Referral * Home Health Care (Routine) - Closed Specialty Diagnoses / Procedures Referred By Ness palacio Referred To Contact Diagnoses Quadriplegia [place] [address] Referral ID Status Reason Start Date Expiration Date V isits Requested Visits Authorized [id number] Closed Consult, Test & Treat 11/10/2023 05/08/2024 999 999 Reason for Visit * Auth/Cert (Routine) Specialty Diagnoses / Procedures Referred By Ness t Referred To Contact Diagnoses Septic shock Sepsis/Obstructive stone Procedures Emergency IPI Yoel Sethi Jr., [place] [address] [facility] Referral ID Status Reason Start Date Expiration Date Visits Re quested Visits Authorized [id number] 1 1 Encounter Details Date Type Department Care Team (Late st Contact Info) Description 10/25/2023 5:47 AM EST - 11/09/2023 3:00 PM EST Hospital Encounter Neurosciences and ENT Unit Level 5 [place] [address] Cheyanne Lemon MD [facility] [place] [address] Yoel Sethi Jr., MD [facility] [place]UL[place] [place] [address] Dedra Arrington DO [facility] [place] [address] Selma Brian MD [facility] [place] [address] Yessi Lopes MD [facility] [place] [address] Maritza [place] [address] Septic shock; Sepsis, due to unspecified organism, unspecified whether acute organ dysfunction present; Ureteral stone; Pyelonephritis, acute; Oxygen desaturation; Bacteremia; Quadriplegia Discharge Disposition: Home with VNA Social History Tobacco Use Types Packs/Day Years Used Date Smoking Tobacco: Never Smokeless Tobacco: Never Tobacco Cessation:Counseling Given: Not Answered Alcohol Use Standard Drinks/Week Comments Never 0 (1 standard drink = 0.6 oz pur e alcohol) [facility] Utilities Answer Date Recorded In the past 12 months has e [employer], gas, oil, or water [employer] threatened to shut off services in your [...] Sign Reading Time Taken Comments Blood Pressure 147/90 11/09/2023 7:27 AM EST Pulse 83 11/08/2023 11:30 PM EST Temperature 37.5 ??C (99.5 ??F) 11/09/2023 7:27 AM ES T Respiratory Rate 17 11/08/2023 11:3 0 PM EST Oxygen Saturation 95% 11/09/2023 7:27 AM EST Inhaled Oxygen Concentration - - Weight 83.8 kg (184 lb 11.9 oz) 11/06/2023 1:00 AM EST Height 188 cm (6' 2) 10/25/2023 6:13 AM EST Body Mass Index 23.72 10/25/2023 6:13 AM EST documented in this encounter Discharge Summaries * Jameel Joyce MD - 11/09/2023 3:00 PM EST Discharge Summary Patient Name: Nighat Barrios Patient Age: 58 y.o. Language: [place] Islander Race: White Ethnicity: Not nor Admit date: 10/25/2023 Discharge date and time: 11/10/2023 Attending Physician: No att. providers found Discharge Physician: No att. providers found ID: Nighat Barrios is a 58 y.o. male w/ history of quadriplegia s/p fall from roof 10/26/2020, neurogenic bladder/bowel with SP tube and cystostomy, stage-4 left- sided ischial pressure ulcer followed by wound care, who presented with sepsis secondary to pseudomonas bacteremia and hypoxic respiratory failure. Follow-up Recommendations for Providers: Follow Up Pulmonary Toilet. We continued to recommend VPEP cough assist hypertonic saline nebulizerand pulmonary toilet per pulmonology recommendations. The risks of forgoing this therapy have been explained to the patient including increased oxygen needs, pneumonia/infection, and potentially . At discharge patient deferred initiation of this to the outpatient setting and would prefer to return home earlier rather than wait in hospital for these resources to be set up at home. -Ensure pulmonology / RT follow up for connection with these resources Ensure follow up with wound care. Patient presented with small decubitus ulcer which improved with routine wound care this admission. Patient was recommended to follow in wound care clinic and to conitnue scheduled turns and routine wound care at home. Medication Reconciliation. Patient discharged on home medication regimen with addition of flomax and without any other changes. He completed his IV antibiotic course this admission for pseudomonas bacteremia and was NOT discharged on home OPAT. He had NO seizure acivity this admission and home anti-epileptics were NOT adjusted. Ensure medication reconciliation and prescriptions upon discharge are accurate. Pending Studies and Lab Data: none No current labs Discharge Diagnoses (Hospital Problems) and Secondary Diagnoses (Chronic Problems): Active Hospital Problems Diagnosis Septic shock Resolved Hospital Problems No resolved problems to display. There are no active non-hospital problems to display for this patient. History of Presentation (per 10/25/2023 Admission H&P): Urology HPI Nighat Barrios is a 58 y.o. male with history of paraplegia, indwelling beck, nephrolithiasis, now presenting with right urolithiasis. New found agitation prompted ED visit and further workup was obtained as described below. He is notinteractive and answers only some questions; per report he is baseline agitated. He was febrile at the OSH ED and arrived to on 5 of levo which was subsequently increased to double digits. Labs: WBC 17.5, Cr 1.19 UA: nitrite/leuk +, >[address] A/P: significant for proximal right stone, ~7mm on the right with hydro . On exam, patient is toxic. Abdominal exam with right flank tenderness, no suprapubic tenderness. heis passing urine through SP catheter. No other related history. He received cefepime, vanc, metro and 4L fluids prior to arrival. SICU HPI Nighat Barrios is a 58 y.o. male with PMH of quadriplegia s/p fall from roof 10/26/2020, neurogenic bladder/bowel with SP tube and cystostomy, stage-4 left- sided ischial pressure ulcer followed by wound care, who now presents as an upgrade to the SICU for acute hypoxic respiratory failure. Mr Ron Disla was initially admitted to the SICU on 10/25/23 post-operatively after cystoscopy with stent placement and stone removal for obstructing R- urolithiasis given concern for sepsis in the setting of ongoing pressor requirement which quickly resolved and he was ultimately downgraded to the floor on 10/26/23. The patient had increasing oxygen requirement overnight 10/27-10/28 requiring escalation of supplemental O2 from room air to HFNC at 30 LPM 60% oxygen. Patient remained hemodynamically stable and CXRrevealed LLL probable atelectatic change with mild elevation of LEFT hemidiaphragm but without evidence of pneumothorax, effusion, or infectious consolidation. Lactate WNL at 0.8, VBG 7.37/44/v/24.8,bedside POCUS showing many B-lines concerning for pulmonary edema. The patient is also noted to have been having persistent secretions since the time of his admission for which he has been receiving NAC nebulizers and cough assist from RT which the patient endorses has been helpful. The patient was given 40 mg IV lasix and transferred to the care of the SICU team. Hospital Course: Nighat Barrios was admitted to the Hospital Medicine Service on 10/25/2023. The following issues wereaddressed and he was discharged on 11/10/2023. #Hypoxic episodes #Mucus Plugging #Aspiration Pneumonia Patient's hypoxemia this admission thought to be secondary to atelectasis, mucus plugging, inadequate pulmonary toilet (frequently refusing RT session) with possible component of aspiration pneumonia. Treated with IV ABX (Zosyn), RT pulmonary toilet, and supplemental O2 DID NOT require bronchoscopy. POD3 10/28: Increased O2 requirements today. CXR shows concerns for fluid overload. Patient upgraded back to ICU for diuresis. CT/PE & CT abd/pelvis w/ contrast ordered to evaluate for renal abscesses given continued fevers. CT/PE negative for PE however did reveal occlusive mucous plugging found in LLL bronchus with near total post-obstructive LLL collapse. Mucus plugging is cause for hypoxia. CT abd/pelvis also obtained which did not reveal any renal abscesses. POD4 10/29: Aggressive pulm toileting successfully weaned pt to RA. Level of care downgraded to Floor status. Febrile in AM. On Zosyn. POD8 11/02:Required HFNC 35-40L/min. Pulmonary consult. POD11 11/05: Room air trial for ~6 hours. Required 2-6L O2 overnight. Pulmonology deemed safe for discharge if able to stay on room air. Per ID, Zosyn infusions will be completed 11/08 POD12 11/06: Added on to OR schedule for Bronchoscopy. NPO. Transferred care to Medicine service. Weaned to room air and bronchoscopy deferred POD13 1: Evaluatoin overnight for home O2, did not desaturate overnight. On RA and bronchoscopy cancelled no longer indicated for mucus plugging #Complicated UTI (Polymicrobial UTI secondary to UPJ obstruction s/p ureteral stent on right side) #Pseudomonas bacteremia secondary to obstructing ureteral stone #PsA bacteremia #Sepsis POD0 10/25: Underwent right ureteral stent placement and several small bladder stones removed, transferred to ICU afterwards POD1 10/26: Weaned off pressors in the AM, WBC 36.2 -> 19.8, Cr 1.04 -> 0.87. Zosyn started POD2 10/27: WBC continues to downtrend, continues to have intermittent fevers. POD5 10/30: Intermittently Febrile. On Zosyn. No Leukocytosis. POD10 11/04: Hypotensive overnight, responded well to 1L bolus x2. Continues on Zosyn. Troponins, EKGnot suggestive of ACS. Medicine consulted overnight. Zosyn 10/25/23 - 11/08/23 #Decubitus Ulcer #Chronic Wound (healing) Patient presented with small decubitus ulcer which improved with routine wound care this admission.Patient was recommended to follow in wound care clinic and to conitnue scheduled turns and routine wound care at home. Procedures: Operations: Procedure(s): CYSTO, STENT PLACEMENT (WRVU 2.82) CYSTOSTOMY TUBE, CHANGE (WRVU 0.9) CYSTO, REMOVAL OF STENT, FOREIGN BODY OR CALCULUS, SIMPLE (WRVU 2.81) On exam, patient is toxic. Abdominal exam with right flank tenderness, no suprapubic tenderness. heis passing urine through SP catheter. No other related history. He received cefepime, vanc, metro and 4L fluids prior to arrival. Procedure Description: The patient was identified in the pre-operative holding area. Consent was not able to be obtained due to his DPOA not being able to be contacted as well as the urgent need for decompression. The correct side of the procedure was marked. The patient was taken to the operating room and placed supine on the operating table. General anesthesia was induced. The patient was then moved to the lithotomy position and prepped and draped in the usual sterile fashion. A timeout was performed involving all members of the OR team confirming the patient's identity and planned procedure. Preoperative antibiotics were administered. The existing SPT was capped. A 22 Fr rigid cystoscope was inserted into the bladder. Cystoscopy notable for an edematous bladder/catheter changes as well as 2 bladder stones. A guide wire was passed into the right ureteral orifice without difficulty and visualized on fluoroscopy to be within the renal pelvis. A Pollack catheter was inserted over the guide wire, minimal contrast was gently instilled, and the renal pelvis was visualized on fluoroscopy to be without filling defects. Upper tract urine was then gently aspirated; purulent urine was collected and sent for culture. The Pollack catheter was then removed and a 7Fr Vr double-J stent was passed over the wire. The proximal coil was visualized on fluoroscopy to be within the renal pelvis, and the distal coil was seenwith direct visualization in the bladder. Purulent urine continued to efflux from the stent. Our attention was then turned to the bladder stones; the smaller stone was extracted whole via the scope. The larger stone could not be crushed/extracted whole; this was not addressed further given his septic condition. The existing SPT was then removed after its balloon was deflated. A 20Fr beck was inserted into the tract and the balloon filled under direct vision. The cystoscope was then removed. A 20Fr urethral catheter was then inserted into the penis with urine return and its balloon was inflated. The patient tolerated the procedure with eventual transition to single pressor requirement and transferred to the ICU for further care. Dr. Brian, the attending surgeon, was present for the entire procedure. Important Studies and Lab Data: DISCHARGE BASIC LABS: -- -- -- -- -- -- 8.6 -- H/H -- -- -- -- -- -- 0.73 -- -- -- 3.1 -- --N (--B) / --L / --M / --E / --B No results for input(s): HA1C in the last 168 hours. Recent Labs 11/05/23 0417 TSH 2.87 No results for input(s): HDL, LDLCHOL, CHOLHDL, TRIG, CHLPL in the last 168 hours. Microbiology: Blood Culture 10/24/23 Specimen Information: Blood 0 Result Notes Component 2 wk ago Blood Culture Abnormal Pseudomonas aeruginosa detected by PCR Isolate saved. If future testing is required, contact the Microbiology Line Maintenance Technician. Gram Stain Aerobic Abnormal Growth detected in aerobic bottle. Gram Negative Rods seen Results called to and read back by Jose Organism Pseudomonas aeruginosa Abnormal Organism Gram Negative Rods Abnormal Resulting Agency [facility] Lab Susceptibility Pseudomonas aeruginosa MICROSCAN METHOD Amikacin Sensitive Aztreonam Sensitive Cefepime Sensitive Ceftazidime Sensitive Ciprofloxacin Sensitive Levofloxacin Sensitive 1 Meropenem Sensitive Piperacillin/Tazobactam Sensitive Tobramycin Sensitive Discharge Conditions/Prognosis: Upon discharge the pt is hemodynamically stable, afebrile, paraplegic requiring regional cra care; NOT requiring supplemental oxygen, holding down food/drink, and pain controlled with stable oral regimen. Vital Signs: Last value Range last 24 hrs Temperature Temp: 37.5 ??C (99.5 ??F) Temp: -- Heart Rate Heart Rate: 83 Heart Rate: -- Blood Pressure BP: 147/90 BP: -- Respiratory Rate Resp: 17 Resp: -- SpO2 SpO2: 95 % SpO2: -- Discharge to: home with VNA and private regional cra care services Discharge Medications: Your Medications New Medications Dose Details tamsulosin 0.4 mg capsule Commonly known as: Flomax Take 1 capsule by mouth daily. 0.4 mg Quantity: 90 tablet Refills: 3 Continued medications, unchanged Dose Details baclofen 20 mg tablet Commonly known as: Lioresal Take 1 tablet by mouth 3 times daily. 20 mg Refills: 0 diclofenac 1 % Gel Commonly known as: Voltaren Apply topically 4 times daily as needed. Quantity: 100 g Refills: 3 divalproex ER 500 mg ER 24 hr tablet Commonly known as: Depakote ER Take 1 tablet by mouth daily. 500 mg Refills: 0 ketoconazole 2 % Cream Commonly known as: Nizoral Apply topically daily. Quantity: 30 g Refills: 0 LORazepam 1 mg tablet Commonly known as: Ativan Take 1 tablet by mouth 3 times daily as needed for Anxiety. 1 mg Quantity: 90 tablet Refills: 0 mirabegron ER 25 mg ER 24 hr tablet Commonly known as: Myrbetriq Take 1 tablet by mouth daily. 25 mg Refills: 0 naloxone 1 mg/mL Syringe Commonly [...] mg tablet Commonly known as: SEROquel Take 1 tablet by mouth nightly as needed. 25 mg Quantity: 30 tablet Refills: 0 senna 8.6 mg tablet Commonly known as: Senokot Take 1 tablet by mouth 2 times daily. 1 tablet Quantity: 60 tablet Refills: 0 zolpidem 10 mg tablet Commonly known as: Ambien Take 1 tablet by mouth nightly as needed for Sleep. 10 mg Quantity: 30 tablet Refills: 0 Updated Allergies/ADRs: Allergies Allergen Reactions Hydromorphone Other (See Comments) Daughter states makes him irritable and has hallucinations Instructions Given to Patient at Discharge: Patient Instructions Patient Instructions on Discharge to Home Why you were hospitalized - Urinary tract infection with sepsis. You had urology surgery to remove a large obstructing kidney stone and a suprapubic cathter was placed to bypass this obstruction. Call your doctor or seek medical attention if you develop the following - chest pain, shortness of breath, passing out, feeling dizzy upon standing, passing out, diarrhea, constipation lasting longerthan 2 days, fevers (temperature over 100.3), chills, abdominal pain, vomiting, difficulty or discomfort when urinating, bloody or black bowel movements, or any other acute or concerning symptom. Activity level - as previous Diet - as previous Shower/Bath - as previous Wound Care - for left ischial wound Promogran Yolanda: Nursing to change dressing every 3 days and as needed for drainage. 1. Cleanse the area with saline or wound cleanser and gauze. 2. Place Promogran (or promogran yolanda) to fit the wound bed. If the wound bed is dry moisten the Promogran with a few drops of saline. 3. Cover with mepilex border dressing. Home Oxygen Therapy - n/a Medication Changes - New Medications: - Flomax 0.4mg (one pill). ONCE DAILY. this is to decrease pain from urinary tract stone formation. Stop these Medications: - n/a Medications with new dose: - n/a Follow-up Appointments No future appointments. - We are calling to schedule wound care and primary care follow up for you. Please call these clinics to confirm or reschedule your appointments. - the urology doctors will call you to schedule an appointment for additional procedures, if you don't receive a call from them by the end of next week please call [phone] and ask about the status of your appointment/procedures. Your Inpatient Medical Team at [facility] Name(s) of your inpatient provider(s): Maritza Hampton MD For questions regarding issues relating to your hospitalization on the Hospital Medicine Service, please contact your inpatient physician through the [facility] Hand Umbrella Tipper [phone]. Issues after hours and on weekends will be handled by the Hospitalist staff on-call. Your Primary Care Provider No primary care provider on file. None The Department of Hospital Medicine hopes you have a safe and stress free transition out of the hospital. As an additional safeguard to help this transition happen seamlessly we have created a tool to help us stay in communication in case there are any questions or concerns after your discharge. Ifyou are not being discharged to another care setting, where they will take over your medical care, please anticipate a brief questionnaire from our Department that will help us ensure you do not haveany issues with your discharge and are as safe and healthy as possible. This questionnaire will be sent out after your discharge, and will be delivered via text primarily but also email if texting is not possible. If there do happen to be any issues or concerns once you leave [facility], we apologize for any undue stress this may cause. Please do not hesitate to call your PCP office or seek further medical assistance if there are any immediate concerns aboutyour health. This questionnaire is not meant to provide immediate access to a physician, but has been created to help us ease the transition out of the hospital. Someone from our department will reach out after the questionnaire is completed if you have raised any concerns, or have requested a callback, to help ensure your concerns are addressed and a plan is made to keep you safe and healthy. Thank you in advance for your time completing this questionnaire. General Instructions None Future Appointments and Orders Future Appointments and Orders Future Appointments Provider Department Dept Phone 11/16/2023 10:00 AM Rob Preez Jr., MD Urology at [facility]B [phone] 11/18/2023 1:00 PM Fifi Weeks APRN Wound Care at [facility] at: [facility] 4M [phone] Future Orders Complete By Expires Referral to Home Health [REF34 Custom] As directed Process Instructions: If no progress note charted, please enter Clinical details in comments. Scheduling Instructions: Comments: Please evaluate Nighat Barrios for admission to Home Health. [address] [facility] [address] (home) Date of : 1965 Inpatient DOCUMENTATION FOR VNA SERVICES (INCLUDING THOSE PATIENTS WITH MEDICARE COVERAGE REQUIRING HOME VNA SERVICES AND/OR HOSPICE SERVICES) PATIENT'S LOCATION: [address] [facility] [address] (home) Cell: No relevant phone numbers on file. Jumpb[employer] Armhole Baster's Name: Self In discussion with the attending physician, it is certified that this patient is under their care and that they, or a Nurse Practitioner, Clinical Nurse specialist or Physician Scanner Supervisor who is working directly with them, had a face to face encounter that meets the physician face to face encounter requirements with this patient on 11/09/23 The encounter with the patient was in whole, or in part, for the following medical condition, whichis the primary reason for home health care services: Quadriplegia In discussion with the provider, it is certified that, based on their findings, the following services are medically necessary for home health services. To provide the following care/treatments with the clinical findings supporting the need for services as follows: HOME CARE ORDERS: RN ORDERS: Assess vital signs, cardiopulmonary status, nutrition, hydration, elimination -Additional Orders: Monitor medication effectiveness and management and Reinforce education regarding health issues PT ORDERS: Continue rehab for endurance, gait stability and strength with mobility and transfers. Home safety evaluation. Home exercise program if appropriate. OT ORDERS: Assess and continue rehab for managing ADLs. Home Health Aide: Assist with personal care activities, ie. dressing/bathing HOME HEALTH CARE AGENCY: [facility] [address] [address] START OF CARE: within 24-48 hours of discharge or first start of care Questions: Disciplines Requested: Nursing Physical Therapy Occupational Therapy Home Health Aide Provider Contact Information: None None Phone: None Fax: None Discharge References/Attachments: Discharge References/Attachments Turning a Patient: General Info (Sol[place] Islander) documented in this encounter Discharge Instructions * Patient Instructions* Jameel Joyce MD - 11/06/2023 2:58 PM EST Patient Instructions on Discharge to Home Why you were hospitalized - Urinary tract infection with sepsis. You had urology surgery to remove a large obstructing kidney stone and a suprapubic cathter was placed to bypass this obstruction. Call your doctor or seek medical attention if you develop the following - chest pain, shortness of breath, passing out, feeling dizzy upon standing, passing out, diarrhea, constipation lasting longerthan 2 days, fevers (temperature over 100.3), chills, abdominal pain, vomiting, difficulty or discomfort when urinating, bloody or black bowel movements, or any other acute or concerning symptom. Activity level - as previous Diet - as previous Shower/Bath - as previous Wound Care - for left ischial wound Promogran Yolanda: Nursing to change dressing every 3 days and as needed for drainage. 1. Cleanse the area with saline or wound cleanser and gauze. 2. Place Promogran (or promogran yolanda) to fit the wound bed. If the wound bed is dry moisten the Promogran with a few drops of saline. 3. Cover with mepilex border dressing. Home Oxygen Therapy - n/a Medication Changes - New Medications: - Flomax 0.4mg (one pill). ONCE DAILY. this is to decrease pain from urinary tract stone formation. Stop these Medications: - n/a Medications with new dose: - n/a Follow-up Appointments No future appointments. - We are calling to schedule wound care and primary care follow up for you. Please call these clinics to confirm or reschedule your appointments. - the urology doctors will call you to schedule an appointment for additional procedures, if you don't receive a call from them by the end of next week please call [phone] and ask about the status of your appointment/procedures. Your Inpatient Medical Team at [facility] Name(s) of your inpatient provider(s): Maritza Hampton MD For questions regarding issues relating to your hospitalization on the Hospital Medicine Service, please contact your inpatient physician through the [facility] Hand [employer] [phone]. Issues after hours and on weekends will be handled by the Hospitalist staff on-call. Your Primary Care Provider No primary care provider on file. None The Department of Hospital Medicine hopes you have a safe and stress free transition out of the hospital. As an additional safeguard to help this transition happen seamlessly we have created a tool to help us stay in communication in case there are any questions or concerns after your discharge. Ifyou are not being discharged to another care setting, where they will take over your medical care, please anticipate a brief questionnaire from our Department that will help us ensure you do not haveany issues with your discharge and are as safe and healthy as possible. This questionnaire will be sent out after your discharge, and will be delivered via text primarily but also email if texting is not possible. If there do happen to be any issues or concerns once you leave [facility], we apologize for any undue stress this may cause. Please do not hesitate to call your PCP office or seek further medical assistance if there are any immediate concerns aboutyour health. This questionnaire is not meant to provide immediate access to a physician, but has been created to help us ease the transition out of the hospital. Someone from our department will reach out after the questionnaire is completed if you have raised any concerns, or have requested a callback, to help ensure your concerns are addressed and a plan is made to keep you safe and healthy. Thank you in advance for your time completing this questionnaire. * Attachments The following attachments cannot be sent through Care Everywhere. * Turning a Patient: General Info ([place] Islander) documented in this encounter Medications at Time [...] 11/20/2020 03/21/2024 documented as of this encounter Progress Notes * Maritza Hampton MD - 11/09/2023 3:00 PM EST Hospital Medicine - Attending Day of Discharge Documentation Discharge diagnosis Active Hospital Problems Diagnosis Septic shock Resolved Hospital Problems No resolved problems to display. Secondary Issues There are no active non-hospital problems to display for this patient. I have personally seen and examined the patient and they are ready for discharge. I spent >30 minutes (Day of Discharge Code 22595) involved in the final examination of the patient, discussion of the hospital stay, instructions for continuing care to all relevant caregivers, and preparation of discharge records, prescriptions and referral forms. Plans Discharge to home Please see the Discharge Summary for complete details of any medication changes and additional plans. * Joseluis Barr - 11/09/2023 11:15 AM EST Office of Care Management(OCM)/Department Chairperson(RS) Patient Name: Nighat Barrios : 1965 Patient to discharge home with services. [facility] arranged for a BLS transport at 1400. Ambulance will need: Medicare ambulance form completed and signed (MD or Asp Developer) Copy of patient demographics [place] or [place] Out of Hospital DNR/DNI order, if active Plan: Department Chairperson will be available to the patient and Asp Developer for further assistance. Patient to discharge [place]: [address] [facility] [id number] Joseluis Barr Department Chairperson * Lauren Carias, RN - 11/09/2023 10:49 AM EST Physician Certification Statement for Non-Emergency Ambulance Services Section I - General Information Nighat Barrios 1965 Transport Date: 11/09/2023 (PCS is valid for round trips on this date and for all repetitive trips in the 60-day range as noted below.) Origin: [facility] Destination: [address] [place] [id number] Is the patient's stay covered under Medicare Part A (PPS/DRG)?: No Closest appropriate facility? Yes discharge to home Transfer Type: N/A Section II - Medical [...] means is contraindicated by the patient's condition: 58 y.o. male with history of paraplegia, indwelling beck, nephrolithiasis, 2) Is the patient bed confined as defined below? No To be bed confined the patient must satisfy all three of the following conditions: - unable to get up from bed without assistance AND unable to ambulate AND unable to sit in a chair or wheelchair. 3) Can this patient safely be transported by car or wheelchair van (i.e. seated during transport, without medical record librarian or monitoring?): No 4) In addition to complete questions 1-3 above, please select any of the following conditions that apply: *Note: supporting documentation for any boxes checked must be maintained in the patient's medical records bank vault attendant required Unable to tolerate seated position for time needed to transport Unable to sit in a chair or wheelchair due to decubitus ulcers or other wounds Other moderate or severe pain Section III - Signature of Physician or Healthcare Professional I certify that the above information is true and correct based on my evaluation of this patient, and represent that the patient requires transport by ambulance and that other forms of transport are contraindicated. I understand that this information will be used by the Centers of Medicare and Medicaid Services ([facility]) to support the determination of medical necessity for ambulance services, and I represent that I have personal knowledge of the patient's condition at the time of transport. Lauren Carias RN 11/09/23 Form was electronically signed and dated by the patient's Physician or Healthcare Professional *Form must be signed only by patient's attending physician for scheduled, repetitive transports. For non-repetitive, unscheduled ambulance transports, when unable to obtain the signature of the attending physician, this form was signed by Registered Nurse * Jorge A Malave MD - 11/09/2023 9:00 AM EST Images from the original note were not included. Urology Consult Note Patient: Nighat Barrios : 1965 Room: [address] [place] [address]- Admit date: 10/25/2023 Attending: Maritza Hampton MD ID: Nighat Barrios is a 58 y.o. male with a history of paraplegia with indwelling SPT, prior nephrolithiasis with reported LL treatment 15 Days Post-Op s/p ureteral stent and bladder stone removal for urosepsis. Subjective/24hr Events: - On room air - Afebrile - No home O2 needs per pulmonary testing - Cr 1.69 (1.64) Current Medications: sodium chloride Nebulization BID pantoprazole EC 40 mg Oral Daily ipratropium-albuteroL 3 mL Nebulization Q4H melatonin 6 mg Oral Nightly divalproex ER 500 mg Oral Daily multivitamin with minerals 1 tablet Oral Daily tamsulosin 0.4 mg Oral Daily sodium chloride 0.9 % (flush) 5 mL Intravenous BID heparin (porcine) 5,000 Units Subcutaneous Q8H ALDEN baclofen 20 mg Oral TID mirabegron ER 25 mg Oral Daily pregabalin 25 mg Oral TID traZODone 50 mg Oral Nightly docusate sodium 100 mg Oral TID senna 34.4 mg Oral Nightly Objective: Last value Range last 24hrs Temperature Temp: 37.5 ??C (99.5 ??F) Temp: [36.5 ??C (97.7 ??F)-37.6 ??C (99.7 ??F)] Heart Rate Heart Rate: 83 Heart Rate: [71-83] Blood Pressure BP: 147/90 BP: (92-147)/(62-90) Respiratory Rate Resp: 17 Resp: [17-18] SpO2 SpO2: 95 % SpO2: [93 %-96 %] Intake/Output Summary (Last 24 hours) at 11/09/2023 0900 Last data filed at 11/09/2023 0400 Gross per 24 hour Intake 655 ml Output 2100 ml Net -1445 ml Physical Exam: Gen: NAD CV: regular rate Pulm: No stridor or audible wheeze, breathing comfortably on RA Abd: ND : SPT with CYU Ext: well perfused Labs: Recent Labs 11/09/23 0150 11/08/23 1620 11/07/23 0633 WBC 7.4 7.1 6.1 HGB 8.9* 9.3* 8.8* HCT 26.5* 28.9* 26.6* PLATELET 430* 439* 433* Recent Labs 11/09/23 0150 11/08/23 1620 11/07/23 0633 NA 144 144 143 K 3.4* 3.9 3.6 CL 110* 109* 108* CO2 24 25 25 BUN 11 9* 7* CREATININE 0.70* 0.70* 0.57* GLUCOSE 117 92 89 CALCIUM 8.6 8.7 9.0 MAGNESIUM 0.73 0.71 0.75 PHOS 3.1 3.0 3.3 No results found for: SPGRAVITYUA, PHUADIP, PROTEINUADIP, GLUCOSEU, KETONESUA, UROBILIUADIP, BLOODUADIP, NITRATEUA, LEUKOESTERUA, WBCUA, BILIRUBINUA Imaging: SCAN DOC: TELEMETRY STRIPS Ordered by an unspecified provider. - CT abdomen pelvis 10/28/23: IMPRESSION 1. Interval placement of a right-sided double-J stent within the ureter, expected appearance. 2. Right-sided nephrolithiasis with no hydronephrosis. 3. 2 small wedge-shaped regions of hypoattenuation within the right renal parenchyma are in retrospect visible on the previous CT, though highly obscured by motion artifact on that exam. This may represent focal nephronia with pyelonephritis. There is no intrarenal or pararenal abscess. 4. Bladder is decompressed which limits evaluation. However, there is probably a degree of circumferential wall thickening, most pronounced at the left lateral margin. Consider cystitis. - CT PE 10/28/23: IMPRESSION 1. No pulmonary thromboembolism 2. Occlusive mucous plugging in the left lower lobe bronchus with near total postobstructive left lower lobe collapse Chest x ray 11/04/22 IMPRESSION 1. Findings consistent with persistent left lower lobe atelectasis/collapse. 2. Similar patchy/hazy opacity in the central right lower lobe, atelectasis versus pneumonia or aspiration. 3. Possible trace/small pleural effusions. Micro: Microbiology Results (Last 30 days) Procedure Component Value Units Date/Time Blood culture [[id number]] Collected: 11/01/23 1430 Lab Status: Final result Specimen: Blood from Foot, Left Updated: 11/06/23 2302 Blood Culture No growth at 5 days. Blood culture [[id number]] Collected: 11/01/23 1420 Lab Status: Final result Specimen: Blood from Foot, Right Updated: 11/06/23 2302 Blood Culture No growth at 5 days. Blood culture [[id number]] Collected: 10/30/23 1300 Lab Status: Final result Specimen: Blood from Hand, Right Updated: 11/04/23 1501 Blood Culture No growth at 5 days. Blood culture [[id number]] (Abnormal) Collected: 10/30/23 1255 Lab Status: Final result Specimen: Blood from Foot, Left Updated: 11/04/23 0751 Blood Culture -- Coagulase negative Staphylococcus species isolated : two morphologies Interpretation of the importance of skin daphne such as Coagulase Negative Staph, Viridans Strep, Corynebacteria and other Gram Positive organisms from a single Blood Culture set requires clinical correlation. Gram Stain Anaerobic -- Growth detected in anaerobic bottle. Gram Positive Cocci in clusters seen Gram Stain Aerobic -- Growth detected in aerobic bottle. Gram Positive Cocci in clusters seen MRSA PCR Screen ([facility]/CGP/APD/NLH) [[id number]] Collected: 10/29/23 0648 Lab Status: Final result Specimen: Nasopharyngeal Swab Updated: 10/29/23 1320 MRSA Result Negative MRSA Interp -- Methicillin-resistant Staphylococcus aureus (MRSA) is NOT DETECTED The MRSA target DNA sequences (mec and SCC) were not detected within the acceptable ranges using the Xpert MRSA NxG on the GeneXpert Dx System ([employer]). This suggests the absence of MRSA in the patient specimen submitted for testing. This test is cleared by the U.S. Food and Drug Administration for clinical use and its performance characteristics have been verified by the [facility] at [facility]. This result does not rule out the presence of any other organisms. Rare false negative results may occur if MRSA is present at low concentrations with much higher concentrations of other organisms including MRSE or S. aureus with an empty SCC cassette. Comment: [VERIFIED DATE]10.29.23 Verified By:Katherine Early (Electronic Signature) Blood culture [[id number]] Collected: 10/28/23 0922 Lab Status: Final result Specimen: Blood from Foot, Left Updated: 11/02/23 1502 Blood Culture No growth at 5 days. Blood culture [[id number]] Collected: 10/28/23 0910 Lab Status: Final result Specimen: Blood from Hand, Right Updated: 11/02/23 1502 Blood Culture No growth at 5 days. Blood culture [[id number]] Collected: 10/25/23 1050 Lab Status: Final result Specimen: Blood Updated: 10/30/23 1501 Blood Culture No growth at 5 days. Blood culture [[id number]] Collected: 10/25/23 1040 Lab Status: Final result Specimen: Blood Updated: 10/30/23 1501 Blood Culture No growth at 5 days. Urine culture Cystoscopic Urine [[id number]] (Abnormal) (Susceptibility) Collected: 10/25/23 0913 Lab Status: Final result Specimen: Cystoscopic Urine Updated: 10/28/23 0748 Urine Culture -- Greater than 50,000 cfu/mL Pseudomonas aeruginosa Greater than 50,000 cfu/mL Enterococcus faecalis Susceptibility Pseudomonas aeruginosa MICROSCAN METHOD Amikacin Sensitive Aztreonam Sensitive Cefepime Sensitive Ceftazidime Sensitive Ciprofloxacin Sensitive Levofloxacin Sensitive [1] Meropenem Sensitive Piperacillin/Tazobactam Sensitive Tobramycin Sensitive [1] Levofloxacin and Ciprofloxacin may not adequately treat infections in critically ill patients even when isolates test susceptible in the laboratory. Contact Infectious Disease before using in critically ill patients. Susceptibility Enterococcus faecalis VITEK 2 METHOD Ampicillin Sensitive Ciprofloxacin Resistant Levofloxacin Resistant Nitrofurantoin Sensitive Penicillin Sensitive Vancomycin Sensitive Urine culture [[id number]] (Abnormal) (Susceptibility) Collected: 10/24/232056 Lab Status: Final result Specimen: Urine Updated: 10/28/23803 Urine Culture -- Greater than 100,000 cfu/ml Proteus mirabilis Greater than 100,000 cfu/ml Pseudomonas aeruginosa Susceptibility Proteus mirabilis VITEK 2 METHOD Amikacin Sensitive Ampicillin + Sulbactam Resistant Aztreonam Sensitive Cefazolin Sensitive Cefepime Sensitive Ceftazidime Sensitive Ceftriaxone Sensitive Gentamicin Sensitive Levofloxacin Resistant [1] Meropenem Sensitive Nitrofurantoin Resistant Piperacillin/Tazobactam Sensitive Tetracycline Resistant Tobramycin Sensitive Trimethoprim/Sulfa Resistant [1] Levofloxacin and Ciprofloxacin may not adequately treat infections in critically ill patients even when isolates test susceptible in the laboratory. Contact Infectious Disease before using in critically ill patients. Susceptibility Pseudomonas aeruginosa MICROSCAN METHOD Amikacin Sensitive Aztreonam Sensitive Cefepime Sensitive Ceftazidime Sensitive Ciprofloxacin Resistant Levofloxacin Resistant [1] Meropenem Sensitive Piperacillin/Tazobactam Sensitive Tobramycin Sensitive [1] Levofloxacin and Ciprofloxacin may not adequately treat infections in critically ill patients even when isolates test susceptible in the laboratory. Contact Infectious Disease before using in critically ill patients. Blood culture [[id number]] (Abnormal) (Susceptibility) Collected: 10/24/232056 Lab Status: Final result Specimen: Blood Updated: 10/31/2334 Blood Culture -- Pseudomonas aeruginosa detected by PCR Isolate saved. If future testing is required, contact the Microbiology Line Maintenance Technician. Gram Stain Aerobic -- Growth detected in aerobic bottle. Gram Negative Rods seen Results called to and read back by Jose Dean Pseudomonas aeruginosa MICROSCAN METHOD Amikacin Sensitive Aztreonam Sensitive Cefepime Sensitive Ceftazidime Sensitive Ciprofloxacin Sensitive Levofloxacin Sensitive [1] Meropenem Sensitive Piperacillin/Tazobactam Sensitive Tobramycin Sensitive [1] Levofloxacin and Ciprofloxacin may not adequately treat infections in critically ill patients even when isolates test susceptible in the laboratory. Contact Infectious Disease before using in critically ill patients. A/P: Nighat Barrios is a 58 y.o. male now 15 Days Post-Op s/p right ureteral stent and bladder stone removal on 10/25 d/t pseudomonas bacteriemia, UTI. Overnight 10/28, patient had increased oxygen requirements from RA. CT/PE negative for PE however did reveal occlusive mucous plugging found in LLL bronchus with near total post-obstructive LLL collapse. CT abd/pelvis also obtained which did not reveal any renal abscesses. Ucx Pseudomonas/Enterococcus/Proteus, Bcx pseudomonas. Surveillance Bcx x 7 NGTD, Bcx 10/30 w/ coagneg staph. ID curbsided 10/28: plan for Zosyn w/ end date 11/09. Patient continues to recover well and is currently on room air. He has f/u requested with Dr. Perez on 11/16 to discuss PCNL. Plan discussed with Dr. Lopes, Urology attending. Jorge A Malave MD 11/09/2023 [id number] * Augusto Hall MD - 11/08/2023 12:48 PM EST MEDICINE PAGER [phone] - [facility] Daily Progress Note Page [phone] to reach a provider 25/05 Admit Date: 10/25/2023 Encounter Date: November 08, 2023 Anticipated Discharge Date: 11/09/2023 Hospital Day: 14 ID: Nighat Barrios is a 58 y.o. 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 24 Hour Events/Subjective: Overnight: -O2 Study NOT qualifying for home oxygen -Pulmonology deferring bronchoscopy: no longer indicated -Patient continues to refuse pulmonary toilet, VPEP cough assist and hypertonic NS nebs. Subjective: Frustrated by prolonged NPO overnight and in morning of 11/07, expresses desire to leave hospital and return home. Denies Headache, Chest pain, Nausea/Emesis, Constipation, Diarrhea. Review of systems otherwise negative. Objective: Last value Range last 24 hrs Temp: 37.5 ??C (99.5 ??F) Temp: [36.9 ??C (98.4 ??F)-38 ??C (100.4 ??F)] Heart Rate: 71 Heart Rate from SpO2: 71 bpm Heart Rate: [71-85] BP: (!) 152/98 BP: (130-153)/(83-98) Resp: 16 Resp: [16-17] SpO2: 96 % SpO2: [92 %-97 %] Height: 188 cm (6' 2) Weight: 83.8 kg (184 lb 11.9 oz) BMI (Calculated): 23.11 BMI Classification: Normal Weight Intake/Output Summary (Last 24 hours) at 11/08/2023 1248 Last data filed at 11/08/2023 1219 Gross per 24 hour Intake 405 ml Output 2400 ml Net -1995 ml Patient Vitals for the past 72 hrs: Weight 11/06/23 0100 83.8 kg (184 lb 11.9 oz) EXAM: Gen: Supine in bed, NAD HEENT: Anicteric. Non-injected. Oropharynx nonerythematous. No exudates. Uvula midline and palate rises symmetrically. CV: RRR. Normal S1 and S2. No M/R/G. Pulm: impaired air entry b/l lower lobes.. Abd: suprapubic tube in place. normoactive bowel sounds. Soft, nondistended, nontender. Ext: 2-3+ pitting edema. 0/5 strength b/l LE. Erogonomic boots in place. . Neuro: quadriplegia with arm movement (stable). alert and appropriate. Psych: cooperative, pleasant by end of discussion -- -- -- -- -- -- -- -- H/H -- -- -- -- -- -- -- -- -- -- -- -- --N (--B) / --L / --M / --E / --B No results found for this visit on 10/25/23 (from the past 24 hour(s)). CONSULTANTS: IP CONSULT TO PHARMACY IP CONSULT TO PHYSICAL THERAPY IP CONSULT TO OCCUPATIONAL THERAPY IP CONSULT TO SPEECH THERAPY IP CONSULT TO CARE MANAGEMENT IP CONSULT TO RESPIRATORY CARE IP CONSULT TO INFECTIOUS DISEASES IP CONSULT TO PULMONOLOGY IP CONSULT TO MEDICINE IP CONSULT TO UROLOGY Assessment: Nighat Barrios is a 58 y.o. male with relevant PMH of paraplegia with indwelling SPT, prior nephrolithiasis with reported LL treatment 10 Days Post-Op s/p ureteral stent and bladder stone removal for urosepsis. 11/08/2023 Nighat Barrios is a 58 y.o. male now Post-Op s/p right ureteral stent and bladder stone removal on 10/25 d/t pseudomonas bacteriemia, UTI. Patient has cleared his cultures and continues on Zosyn with active OPAT orders with end of treatment on 11/08/23. He has good urine output and stable vital signs other than hypoxemia. Patient's underlying hypoexemia likely secondary to mucus plugging vs obstructiv e apnea. After overnight monitoring patient does not qualify for home O2 and pulmonology are deferring bronchoscopy. We continue to recommend VPEP cough assist hypertonic saline nebulizer and pulmonary toilet per pulmonology recommendations. The risks of forgoing this therapy have been explained tothe patient including increased oxygen needs, pneumonia/infection, and potentially . At this time patient has deferred initiation of this to the outpatient setting and would prefer to return home earlier rather than wait in hospital for these resources to be set up at home. Patient is now medically ready for discharge pending ride. Patient will require ambulance for transportation. Will likely be discharged tomorrow 11/09, and will require OPAT until end of day on 11/08/23.. Plan: NEURO: Continuing home medications: baclofen, divalproex, pregabalin, trazodone, hydroxyzine prn, lorazepam prn; tylenol and oxycodone prn for pain CV: #Hypotension Episodic hypotension in setting of mild hypovolemia and autonomic dysfunction. -No acute intervention at this time PULM: Pulmonary medicine was originally consulted on 11/02/2023 in regards to possible bronchoscopy given mucus obstruction. The patient remains weak given his baseline paraplegia, ongoing illness, prolongedhospitalization. His weak cough is currently managed with Cough Assist/vibration, nebulized hypertonic saline. He is doing well on room air. Pulmonology consulted, appreciate recs: -Bronchoscopy no longer indicated given adequate saturation on RA overnight and this AM -If maintaining saturations on room air then Safe to discharge from respiratory perspective GI: #GERD -c/w home PPI : #Nephrolithiasis s/p surgical removal 10/25/23 -home mirabegron, chronic sPT FEN: carb control diet - Push PO fluids, 5 cups/day ENDO: #Hyperglycemia -SSI HEME: #PPX -SQH ID: #Aspiration Pneumonia #PsA bacteremia #Complicated UTI (Polymicrobial UTI secondary to UPJ obstruction s/p ureteral stent on right side) Fevers has resolved now and O2 requirements has improved. He is clinically stable and exam is non focal. He has a remaining retained stone which urology is planning to PCNL in about a month Antimicrobials: Zosyn 10/26-11/08/23 Cefepime 10/24-10/25 - Cultures: - Ucx 10/25 & 10/24 with pseudomonas, proteus, and enterococcus - final - Bcx 10/24 with Pseudomonas - final - Bcx (2) 10/25 - NGTD - Bcx (2) 10/28 - NGTD - Bcx (2) 10/30 - NGTD & coag neg staph - OPAT order in place Diet: Regular diet Last BM documented: 11/07/23 DVT Prophylaxis: Heparin SCD Daily Checklist: Last Family Communication: 11/08/2023 Discharge Location: AM-PAC Basic Mobility Raw Score: 6 PT: Anticipated Discharge Disposition (PT): home with home health Anticipated Equipment Needs at Discharge (PT): (patient needs new wheelchair batteries) OT: Anticipated Discharge Disposition (OT): home with home health (& caregivers) Code status Do NOT Attempt CPR - Inpatient PCP No primary care provider on file. None Active Hospital Problems Diagnosis Septic shock Resolved Hospital Problems No resolved problems to display. Associated attestation - Maritza Hampton MD - 11/08/2023 4:53 PM EST Attending Attestation and Certification Please see Augusto Hall MD's note for details of the patient history of presentation and data.I have discussed, reviewed and agree with the documented History, Physical findings, Assessment andPlan of care. I have examined the patient myself and personally reviewed all studies. In addition, I certify thatI am a [facility] credentialed attending provider with admitting privileges and that the patient meets or has met medical necessity to require an inpatient IPI level of care meeting a minimum of two midnights or is on the [facility] inpatient only procedure list (status C) due to: acute respiratory compromise and/or hypoxia requiring assessment every 4 hours and the ability to respond immediately to the patient's need and complicated UTI Complicated urinary tract infection appears stable and under control on current antibiotic regimen,with course of antibiotics due to complete on 11/09. He has persistent LLL collapse presumed due to mucous plugging, given resolution of hypoxemia pulmonary not opting for bronchoscopy. They do recommend aggressive home pulmonary toilet. Per report Mr. Barrios has not been compliant with the recommended toilet regimen during this admission and he is not willing to continue this regimen at home. Dr. Joyce explained the risks of discharge without these measures and Nighat expressed understanding.Per report, prior treating teams were attempting to arrange for nocturnal oxygen for discharge. After formal testing he does not qualify for nocturnal oxygen (he had ~4 min 30 seconds of SaO2 <89%). Urology follow-up appointment pending as indicated by urology notes. * Nannette Estevez - 11/08/2023 12:16 PM EST Nutrition Services Note - Low Nutrition Acuity Nighat Barrios is a 58 y.o. male Reason for intervention: follow up Nutrition Plan: Continue diet order: Regular diet Encourage good PO Lasix on 10/28, Tori Barrett noted Wounds noted - encourage protein intake Continue snack BID Feeding assistance noted Monitor weight Patient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 the abx at home, and they are in discussion with OPAT team about abx administration. Plan discussed with Dr. Lopes, Urology attending. KAN Ornelas 11/06/2023 [id number] * Vanesa Cantu RCP - 11/06/2023 10:44 AM EST Respiratory Care Airway Clearance Note Bronchodilator: Duoneb Hypertonic Saline: 7% Hypertonic Saline Mucolytic: None Airway Clearance Therapy: Cough Assist: 2 sets of 5 cycles. Insp: +35 Exp: -35 RR: 18 SpO2: 95 Lung Sounds: Clear and Diminished Secretions: None noted. . Assessment: patient semi compliant with treatment. Room air during day tolerated seems to need 6 L for sleeping. Plan: Overnight oximetry Respiratory Care Pager #[phone] * Lucie Saul RT - 11/05/2023 8:38 PM EST Pt received scheduled nebs for 1999. He refused any type of airway clearance. Bed percussor and aerobika offered. Pt rude to staff verbally. Will continue to offer nebs and pulmonary toileting. * Rosmery Daly MD - 11/05/2023 6:55 PM EST INFECTIOUS DISEASE FOLLOW-UP NOTE Active ID Issue(s): PsA bacteremia Complicated UTI (Polymicrobial UTI secondary to UPJ obstruction s/p ureteral stent on right side) LLL opacification (unclear if new process) Interval Updates: Had episode of hypotension overnight that responded with fluids, evaluated by medicine Fever improved O2 requirement has improved, was in room air this AM. Subjective: No complaints except the nebulizer treatment. Playing games in iPad Antimicrobials: Zosyn 10/26- Cefepime 10/24-10/25 Medications: Medications reviewed. Vitals: Last value Range last 24 hrs Temperature Temp: 37.1 ??C (98.8 ??F) Temp: [36.5 ??C (97.7 ??F)-37.2 ??C (99 ??F)] Heart Rate Heart Rate: 93 Heart Rate: [73-96] Blood Pressure BP: 155/88 BP: (76-164)/(43-109) Respiratory Rate Resp: 20 Resp: [16-20] SpO2 SpO2: 94 % SpO2: [91 %-100 %] Physical Exam: General: In no acute distress, resting in bed comfortably, pleasant HEENT: No scleral icterus, moist mucous membranes, no oropharyngeal lesions Neck: Supple, trachea midline Pulmonary: (+) chest port c/d/I; Clear to auscultation bilaterally, no wheezes or crackles CV: Regular rate and rhythm Abdomen: Soft, non-distended, non-tender to palpation in all quadrants; (+) LLQ colostomy Extremities: No peripheral edema Skin: No rashes or lesions noted on visible skin Laboratory: Recent Labs 11/05/2341611/04/23 1830 11/04/23 0155 WBC 8.6 10.4* 9.7* HGB 8.6* 8.8* 8.7* HCT 25.7* 26.7* 26.3* PLATELET 429* 393* 363* Recent Labs 11/05/2341611/04/23 1830 11/04/23 0155 NA 141 142 143 K 3.5 3.9 3.7 CL 105 107 107 CO2 27 23 26 BUN 8* 8* 8* CREATININE 0.57* 0.59* 0.60* No results for input(s): AST, ALT, ALKPHOS, BILITOT, BILIDIR in the last 168 hours. Microbiology: 10/24-urine culture-Proteus mirabilis, Pseudomonas 10/24-blood culture-Pseudomonas aeruginosa 10/25-urine culture-Enterococcus faecalis 10/25-blood culture-NGTD 10/28-blood culture-NGTD Radiology/Studies/Procedures: Imaging reviewed. No new imaging Impression: Nighat Barrios is a 58 y.o. male with a history of paraplegia (secondary to cervical spine injury s/pmechanical fall off of roof on 10/2020), diverting colostomy, chronic decubitus ulcer, chronic suprapubic tube, nephrolithiasis, recent UTI was transferred from [facility] for currently being managed for septic shock secondary with Pseudomonas bacteremia sedcondary to complicated UTI with right ureteral obstruction and hydronephrosis s/p right ureteral stenting with 1 renal stone removed. He was improving with Zosyn, but developed new hypoxia with chest imaging showing left lower lobe opacities. He was initially on high flow at 40 LPM but now comfortable on NC. It was felt this might be secondary to mucous plugging. Pulmo has no plans of doing bronchoscopy at this time. Fevers has resolved now and O2 requirements has improved. He is clinically stable and exam is non focal. He has a remaining retained stone which urology is planning to PCNL in about a month. Ideally,it would be beneficial if this can be done sooner if the retained stone is infected. However we do not feel it it prudent to continue a longer course of antibiotics more than 2 weeks due to potentialtoxicities and possibility of developing resistant organisms. We recommend total 2 weeks of Zosyn. OPAT intake is in. Follow up with urology. Recommendations: Continue Zosyn IV until 11/09/23. OPAT intake is in. Follow up with Urology. Patient discussed with ID attending Dr. Daly. Recommendations discussed with primary team. The Infectious Disease consult service will continue to follow the patient. Do not hesitate to pageID Green team with any further questions or concerns. X ID will sign off. Please contact us if further consultation required. Lauri Franks MD Infectious Diseases Fellow Pager #: [phone] 11/05/2023 6:55 PM ID ATTENDING I have reviewed the chart as well as the documentation as written by Dr. Franks. The assessment and plan were formulated in discussion with me and I agree with them as documented. I would add/modify: Clinically stable, afebrile. Duration of therapy is always difficult I/s/o retained stone which could harbor bacteria. However our understanding is that this will not be removed for likely another month, and with that duration of time, the potential benefits of broad-spectrum antimicrobial therapy begin to be outweighed by risks. As such, though would recognize he is at risk for return of infection, would stop after 2 weeks. Rosmery Daly MD Infectious Diseases * Lauri Franks MD - 11/05/2023 4:06 PM EST DH OPAT INTAKE: Diagnosis: Bacteremia and Genitourinary infection, Antibiotic Type: IV, Organism(s): Pseudomonas species and Enterococcus species, Antibiotic(s) being taken: Piperacillin-tazobactam (4.5g IV every 8 hours) With a start date of 10/25/2023, and anticipated end date of 11/09/2023. Desired timing of end of therapy appointment: No appointment needed Other speciality appointments to coordinate with: No Dialysis patient?: No Imaging needed?: No * Rosmery Daly MD - 11/05/2023 3:38 PM EST Note entered in error * Vanesa Cantu, [facility] - 11/05/2023 9:47 AM EST Respiratory Care Airway Clearance Note Bronchodilator: Duoneb Hypertonic Saline: 7% Hypertonic Saline Mucolytic: Mucomyst (n-Acetylcysteine) Discontinued Airway Clearance Therapy: Cough Assist: 2 sets of 5 cycles. Insp: +35 Exp: -35 RR: 16 SpO2: 95 Lung Sounds: Diminished and Coarse Secretions: Small Thick White. Assessment: Needs a lot of encouragement. Does not like nebulizers, especially the Mucomyst. Was compliant today with treatments but a lot of commentary on How as respiratory therapists we don't careabout him because we make him do his treatments. Plan: Continue to encourage patient to perform airway clearance techniques and accept nebulizers. Respiratory Care Pager #[phone] * Lobo Childs MD - 11/05/2023 8:28 AM EST Images from the original note were not included. INPATIENT PULMONOLOGY FOLLOW-UP NOTE SECTION OF PULMONARY/CRITICAL CARE MEDICINE Patient Name: Nighat Barrios : 1965 Medical Record: [id number] Date of Service: 11/05/2023 Hospital Day # Hospital Day: 12 Subjective: - He feels that the nebulizer treatments make it hard for him to eat his lunch which made him upset. When we were in the room he was on room air for 2 hours with good oxygen saturation. He was askingfor a bronchoscopy but we discussed with him that it's unnecessary because he's doing fine on room air. Therefore the risk of the bronchoscopy aren't worth the benefit which would be minimal. Review of Systems: Pertinent findings from 12 point ROS listed above in subjective. Objective: Physical Exam: BP 139/78 (BP Location (NBP): Right arm, Patient Position: Lying) Pulse 83 Temp 37 ??C (98.6 ??F) (Oral) Resp 16 Ht 188 cm (6' 2) Wt 85.4 kg (188 lb 4.7 oz) SpO2 96% BMI 24.18 kg/m?? Temp (24hrs), Av ??C (98.6 ??F), Min:36.8 ??C (98.2 ??F), Max:37.2 ??C (99 ??F) Intake/Output Summary (Last 24 hours) at 11/05/2023827 Last data filed at 11/05/2023 0800 Gross per 24 hour Intake 3327 ml Output 1390 ml Net 1937 ml General: This is a 58 y.o. male, NAD Cardiovascular: RRR Respiratory: Coarse breath sounds bilaterally Musculoskeletal: Normal bulk and tone Extremities: no LE edema noted, no clubbing Integument: No rash. Neurologic: Alert and oriented, moves all extremities appropriately, no obvious focal deficits Psychologic: Normal mood and affect. Medications: Scheduled Meds: sodium chloride Nebulization BID piperacillin-tazobactam 4.5 g Intravenous Q8H pantoprazole EC 40 mg Oral Daily ipratropium-albuteroL 3 mL Nebulization Q4H acetylcysteine 600 mg Inhalation Q4H melatonin 6 mg Oral Nightly divalproex ER 500 mg Oral Daily multivitamin with minerals 1 tablet Oral Daily tamsulosin 0.4 mg Oral Daily sodium chloride 0.9 % (flush) 5 mL Intravenous BID heparin (porcine) 5,000 Units Subcutaneous Q8H ALDEN baclofen 20 mg Oral TID mirabegron ER 25 mg Oral Daily pregabalin 25 mg Oral TID traZODone 50 mg Oral Nightly docusate sodium 100 mg Oral TID senna 34.4 mg Oral Nightly Continuous Infusions: PRN Meds: iohexoL, ipratropium-albuteroL, LORazepam, guaiFENesin, acetaminophen, sodium chloride 0.9 % (flush), lidocaine, sodium chloride 0.9 % (flush), hydrOXYzine, sodium chloride 0.9 % (flush) Diagnostics: WBC: 10 H.7 Assessment: Nighat Barrios is a 58 y.o. male notable PMH paraplegia was admitted on 10/25/2023 with sepsis in thesetting of nephrolithiasis (pseudomonas/enterococcus). Overall he has improved hemodynamically, buthaving ongoing intermittent supplemental oxygen requirement on HFNC over the weekend. On the morning of 11/03/2023 he was having excellent oxygen saturation on room air. Pulmonary medicine was originall y consulted on 11/02/2023 in regards to possible bronchoscopy given mucus obstruction. The patient remains weak given his baseline paraplegia, ongoing illness, prolonged hospitalization. His weak coughis currently managed with Cough Assist/vibration, nebulized hypertonic saline. He is doing well on room air. Bronchoscopy is still not indicated. He is safe for discharge from a respiratory standpoint assuming he remains on room air. - Continue room air and current airway clearance plan. - Safe to discharge from respiratory perspective assuming he remains on room air. - Please discontinue mucomyst. Thank you for this consult, we will sign off at this time. Lobo Childs MD Fellow Pulmonary & Critical Care Medicine [facility] Associated attestation - Makenzie Dominguez MD - 11/05/2023 3:36 PM EST I have seen and examined the patient, and Dr. Childs and I have formulated an assessment and plan together. I have reviewed and agree with the note by Dr. Childs. Briefly, 58 yo man with paraplegia since a fall from a roof in 2019, with diverting colostomy, suprapubic catheter, chronic decubitus ulcer, admitted 10/25 to urology with pseudomonas urosepsis/obstructing right nephrolithiasis, s/p stenting. He has weak cough and since 10/28 has had radiographic evidence of mucus airway obstruction/LLL collapse, with intermittent high O2 needs. He continued to have significant oxygen requirements over the last couple of days despite aggressive attempts at airway clearance (partially reflecting refusal to participate). I had tentatively scheduled him for bronchoscopy tomorrow morning, but he appears to have mobilized his secretions today to the extent that he is on room air. If he continues to do well today will cancel bronchoscopy and sign off. As an outpatient, it is important that he have continued aggressive airway clearance. He should have home cough assist machine and suction, as well as VPEP and hypertonic saline nebulizers. Makenzie Dominguez MD Staff Physician Pulmonary and Critical Care Medicine 3:32 PM 11/05/2023 * Monty Sequeira PA - 11/05/2023 7:31 AM EST Images from the original note were not included. Urology Progress Note Patient: Nighat Barrios : 1965 Room: [address] Admit date: 10/25/2023 Attending: Yessi Lopes MD ID: Nighat Barrios is a 58 y.o. male with a history of paraplegia with indwelling SPT, prior nephrolithiasis with reported LL treatment 11 Days Post-Op s/p ureteral stent and bladder stone removal for urosepsis. Subjective/24hr Events: - On LFNC 6L O2 - Afebrile, hypotensive overnight to 60s/50s - 1L bolus x2 - Troponins 60->72->69->63 - CXR w/ atelectasis - Code status: DNR, patient agreeable to short term intubation - RA trial 11/04, desat to <90% - WBC wnl - Cr wnl - Endorsed overnight headache, vision fuzzy, shortness of breath Current Medications: sodium chloride Nebulization BID piperacillin-tazobactam 4.5 g Intravenous Q8H pantoprazole EC 40 mg Oral Daily ipratropium-albuteroL 3 mL Nebulization Q4H acetylcysteine 600 mg Inhalation Q4H melatonin 6 mg Oral Nightly divalproex ER 500 mg Oral Daily multivitamin with minerals 1 tablet Oral Daily tamsulosin 0.4 mg Oral Daily sodium chloride 0.9 % (flush) 5 mL Intravenous BID heparin (porcine) 5,000 Units Subcutaneous Q8H ALDEN baclofen 20 mg Oral TID mirabegron ER 25 mg Oral Daily pregabalin 25 mg Oral TID traZODone 50 mg Oral Nightly docusate sodium 100 mg Oral TID senna 34.4 mg Oral Nightly Objective: Last value Range last 24hrs Temperature Temp: 37.2 ??C (99 ??F) Temp: [36.5 ??C (97.7 ??F)-37.2 ??C (99 ??F)] Heart Rate Heart Rate: 96 Heart Rate: [73-96] Blood Pressure BP: 107/63 BP: (66-164)/(28-109) Respiratory Rate Resp: 18 Resp: [16-18] SpO2 SpO2: 94 % SpO2: [80 %-100 %] Intake/Output Summary (Last 24 hours) at 11/05/2023 0731 Last data filed at 11/05/2023 0630 Gross per 24 hour Intake 2977 ml Output 1365 ml Net 1612 ml Physical Exam: Gen: NAD CV: regular rate Pulm: No stridor or audible wheeze, breathing 6L LFNC Abd: ND : SPT with CYU Ext: well perfused Labs: Recent Labs 11/05/23 0417 11/04/23 1830 11/04/23 0155 WBC 8.6 10.4* 9.7* HGB 8.6* 8.8* 8.7* HCT 25.7* 26.7* 26.3* PLATELET 429* 393* 363* Recent Labs 11/05/23 0417 11/04/23 1830 11/04/23 0155 NA 141 142 143 K 3.5 3.9 3.7 CL 105 107 107 CO2 BUN 8* 8* 8* CREATININE 0.57* 0.59* 0.60* GLUCOSE 126 108 98 CALCIUM 8.6 8.7 8.7 MAGNESIUM 0.90 0.76 0.78 PHOS 2.9 2.6 2.9 No results found for: SPGRAVITYUA, PHUADIP, PROTEINUADIP, GLUCOSEU, KETONESUA, UROBILIUADIP, BLOODUADIP, NITRATEUA, LEUKOESTERUA, WBCUA, BILIRUBINUA Imaging: SCAN DOC: TELEMETRY STRIPS Ordered by an unspecified provider. - CT abdomen pelvis 10/28/23: IMPRESSION 1. Interval placement of a right-sided double-J stent within the ureter, expected appearance. 2. Right-sided nephrolithiasis with no hydronephrosis. 3. 2 small wedge-shaped regions of hypoattenuation within the right renal parenchyma are in retrospect visible on the previous CT, though highly obscured by motion artifact on that exam. This may represent focal nephronia with pyelonephritis. There is no intrarenal or pararenal abscess. 4. Bladder is decompressed which limits evaluation. However, there is probably a degree of circumferential wall thickening, most pronounced at the left lateral margin. Consider cystitis. - CT PE 10/28/23: IMPRESSION 1. No pulmonary thromboembolism 2. Occlusive mucous plugging in the left lower lobe bronchus with near total postobstructive left lower lobe collapse Chest x ray 11/04/22 IMPRESSION 1. Findings consistent with persistent left lower lobe atelectasis/collapse. 2. Similar patchy/hazy opacity in the central right lower lobe, atelectasis versus pneumonia or aspiration. 3. Possible trace/small pleural effusions. Micro: Microbiology Results (Last 30 days) Procedure Component Value Units Date/Time Blood culture [[id number]] Collected: 11/01/23 1430 Lab Status: Preliminary result Specimen: Blood from Foot, Left Updated: 11/04/23 2301 Blood Culture No growth at 3 days. Blood culture [[id number]] Collected: 11/01/23 1420 Lab Status: Preliminary result Specimen: Blood from Foot, Right Updated: 11/04/23 2301 Blood Culture No growth at 3 days. Blood culture [[id number]] Collected: 10/30/23 1300 Lab Status: Final result Specimen: Blood from Hand, Right Updated: 11/04/23 1501 Blood Culture No growth at 5 days. Blood culture [[id number]] (Abnormal) Collected: 10/30/23 1255 Lab Status: Final result Specimen: Blood from Foot, Left Updated: 11/04/23 0751 Blood Culture -- Coagulase negative Staphylococcus species isolated : two morphologies Interpretation of the importance of skin daphne such as Coagulase Negative Staph, Viridans Strep, Corynebacteria and other Gram Positive organisms from a single Blood Culture set requires clinical correlation. Gram Stain Anaerobic -- Growth detected in anaerobic bottle. Gram Positive Cocci in clusters seen Gram Stain Aerobic -- Growth detected in aerobic bottle. Gram Positive Cocci in clusters seen MRSA PCR Screen ([facility]/CGP/APD/NL) [[id number]] Collected: 10/29/23 0648 Lab Status: Final result Specimen: Nasopharyngeal Swab Updated: 10/29/23 1320 MRSA Result Negative MRSA Interp -- Methicillin-resistant Staphylococcus aureus (MRSA) is NOT DETECTED The MRSA target DNA sequences (mec and SCC) were not detected within the acceptable ranges using the Xpert MRSA NxG on the GeneXpert Dx System ([employer]). This suggests the absence of MRSA in the patient specimen submitted for testing. This test is cleared by the U.S. Food and Drug Administration for clinical use and its performance characteristics have been verified by the [facility] at [facility]. This result does not rule out the presence of any other organisms. Rare false negative results may occur if MRSA is present at low concentrations with much higher concentrations of other organisms including MRSE or S. aureus with an empty SCC cassette. Comment: [VERIFIED DATE]10.29.23 Verified By:Katherine Early (Electronic Signature) Blood culture [[id number]] Collected: 10/28/23 0922 Lab Status: Final result Specimen: Blood from Foot, Left Updated: 11/02/23 1502 Blood Culture No growth at 5 days. Blood culture [[id number]] Collected: 10/28/23 0910 Lab Status: Final result Specimen: Blood from Hand, Right Updated: 11/02/23 1502 Blood Culture No growth at 5 days. Blood culture [[id number]] Collected: 10/25/23 1050 Lab Status: Final result Specimen: Blood Updated: 10/30/23 1501 Blood Culture No growth at 5 days. Blood culture [[id number]] Collected: 10/25/23 1040 Lab Status: Final result Specimen: Blood Updated: 10/30/23 1501 Blood Culture No growth at 5 days. Urine culture Cystoscopic Urine [[id number]] (Abnormal) (Susceptibility) Collected: 10/25/23 0913 Lab Status: Final result Specimen: Cystoscopic Urine Updated: 10/28/23 0748 Urine Culture -- Greater than 50,000 cfu/mL Pseudomonas aeruginosa Greater than 50,000 cfu/mL Enterococcus faecalis Susceptibility Pseudomonas aeruginosa MICROSCAN METHOD Amikacin Sensitive Aztreonam Sensitive Cefepime Sensitive Ceftazidime Sensitive Ciprofloxacin Sensitive Levofloxacin Sensitive [1] Meropenem Sensitive Piperacillin/Tazobactam Sensitive Tobramycin Sensitive [1] Levofloxacin and Ciprofloxacin may not adequately treat infections in critically ill patients even when isolates test susceptible in the laboratory. Contact Infectious Disease before using in critically ill patients. Susceptibility Enterococcus faecalis VITEK 2 METHOD Ampicillin Sensitive Ciprofloxacin Resistant Levofloxacin Resistant Nitrofurantoin Sensitive Penicillin Sensitive Vancomycin Sensitive Urine culture [[id number]] (Abnormal) (Susceptibility) Collected: 10/24/232056 Lab Status: Final result Specimen: Urine Updated: 10/28/23 0804 Urine Culture -- Greater than 100,000 cfu/ml Proteus mirabilis Greater than 100,000 cfu/ml Pseudomonas aeruginosa Susceptibility Proteus mirabilis VITEK 2 METHOD Amikacin Sensitive Ampicillin + Sulbactam Resistant Aztreonam Sensitive Cefazolin Sensitive Cefepime Sensitive Ceftazidime Sensitive Ceftriaxone Sensitive Gentamicin Sensitive Levofloxacin Resistant [1] Meropenem Sensitive Nitrofurantoin Resistant Piperacillin/Tazobactam Sensitive Tetracycline Resistant Tobramycin Sensitive Trimethoprim/Sulfa Resistant [1] Levofloxacin and Ciprofloxacin may not adequately treat infections in critically ill patients even when isolates test susceptible in the laboratory. Contact Infectious Disease before using in critically ill patients. Susceptibility Pseudomonas aeruginosa MICROSCAN METHOD Amikacin Sensitive Aztreonam Sensitive Cefepime Sensitive Ceftazidime Sensitive Ciprofloxacin Resistant Levofloxacin Resistant [1] Meropenem Sensitive Piperacillin/Tazobactam Sensitive Tobramycin Sensitive [1] Levofloxacin and Ciprofloxacin may not adequately treat infections in critically ill patients even when isolates test susceptible in the laboratory. Contact Infectious Disease before using in critically ill patients. Blood culture [[id number]] (Abnormal) (Susceptibility) Collected: 10/24/232056 Lab Status: Final result Specimen: Blood Updated: 10/31/23 5167 Blood Culture -- Pseudomonas aeruginosa detected by PCR Isolate saved. If future testing is required, contact the Microbiology Line Maintenance Technician. Gram Stain Aerobic -- Growth detected in aerobic bottle. Gram Negative Rods seen Results called to and read back by Jose Dean Pseudomonas aeruginosa MICROSCAN METHOD Amikacin Sensitive Aztreonam Sensitive Cefepime Sensitive Ceftazidime Sensitive Ciprofloxacin Sensitive Levofloxacin Sensitive [1] Meropenem Sensitive Piperacillin/Tazobactam Sensitive Tobramycin Sensitive [1] Levofloxacin and Ciprofloxacin may not adequately treat infections in critically ill patients even when isolates test susceptible in the laboratory. Contact Infectious Disease before using in critically ill patients. A/P: Nighat Barrios is a 58 y.o. male now 11 Days Post-Op s/p right ureteral stent and bladder stone removal on 10/25 d/t pseudomonas bacteriemia, UTI. Overnight 10/28, patient had increased oxygen requirements from RA. CT/PE negative for PE however did reveal occlusive mucous plugging found in LLL bronchus with near total post-obstructive LLL collapse. CT abd/pelvis also obtained which did not reveal any renal abscesses. Ucx Pseudomonas/Enterococcus/Proteus, Bcx pseudomonas. Surveillance Bcx x 7 NGTD, Bcx 10/30 w/ coagneg staph. ID curbsided 10/28: OPAT at discharge with limited PO abx options - in progress. He is off pressors and WBC is within normal limits. Zosyn per ID. Off Vanc now as MRSA nares negative. Care management engaged for safe discharge planning in regards to his living situation at the [facility], relationship with his care takers, and assistance getting his motorized wheelchair in working condition. Unfortunately insurance will not cover replacement batteries. We are coordinating care givers coming to hospital so they can see how abx pump work on day of discharge. He will need FU URS/cystolitholapaxy for right 7mm UPJ stone, possibly right renal stones, residualbladder stones, which he is aware of. He will likely follow-up with his primary urologist for this.Called Dr. Molina's office and spoke w/ rehabilitation aide/scheduler 10/30. Awaiting call back from their office. On 10/31 pt again required HFNC. CXR similar LLL collapse. RT continuing multimodal therapies. Consulted ICU team to discuss if he is a candidate for bronchoscopy - can be considered, however recommended we reach out to interventional pulmonology - consulted with initial recs for hypertonic saline n ebs (7%, can decrease to 3% if not tolerated), continue percussion. Will follow up final recommendations. We attempted transfer to a medical service on 11/03, 11/04, 11/05 but medicine is not accepting transfersat this time. Spoke w/ attending Dr. Andres Covington. Plan to push PO fluids today and consider a bolus this afternoon if behind goal of 5 cups/day. Dr. Covington is reaching out to Pulm to clarify what trajectory they expect from this recurrent mucus plugging and new O2 requirement. Last night, pt was hypotensive to 60s/50s. EKG, trops did not suggest ACS. BP improved after 1L bolus x2. CXR similar to prior w/ atelectasis. Medicine consulted, appreciate recs. They suggest most likely cause is hypovolemia. Of note, patient was made DNR/DNI however patient is agreeable with intubation for a short amount of time. NEURO: home baclofen, divalproex, pregabalin, trazodone, hydroxyzine prn, lorazepam prn; tylenol and oxycodone prn for pain CV: Hypotension resolving - s/p 1L bolus x2 -Medicine consult -Trops peaked at 72, downtrending PULM: Encourage cough, deep breathing, percussive therapy with RT. HFNC PRN, wean as able - Duoneb - Mucomyst - Hypertonic saline nebs - awaiting ICU recs GI: home PPI : home mirabegron, chronic sPT FEN: carb control diet - Push PO fluids, 5 cups/day ENDO: SSI HEME: SQH ID: on Zosyn (10/26 - ) -Increased dosage to 4.5g 11/01/23 per ID - Cultures: - Ucx 10/25 & 10/24 with pseudomonas, proteus, and enterococcus - final - Bcx 10/24 with Pseudomonas - final - Bcx (2) 10/25 - NGTD - Bcx (2) 10/28 - NGTD - Bcx (2) 10/30 - NGTD & coag neg staph - OPAT order placed 10/31 PPX: home PPI, SQH, SCDs DISPO: Floor CODE: DNR/DNI however okay with intubation for short period of time Care givers would be the ones administering the abx at home, and they are in discussion with OPAT team about abx administration. Plan discussed with Dr. Lopes, Urology attending. 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 Appetite is good. Antimicrobials: Zosyn 10/26- Cefepime 10/24-10/25 Medications: Medications reviewed. Vitals: Last value Range last 24 hrs Temperature Temp: 37 ??C (98.6 ??F) Temp: [36.5 ??C (97.7 ??F)-37.8 ??C (100 ??F)] Heart Rate Heart Rate: 96 Heart Rate: -- Blood Pressure BP: 100/65 BP: (66-162)/(28-97) Respiratory Rate Resp: 18 Resp: [16-18] SpO2 SpO2: 98 % SpO2: [80 %-100 %] Physical Exam: General: In no acute distress, resting in bed comfortably, pleasant HEENT: No scleral icterus, moist mucous membranes, no oropharyngeal lesions Neck: Supple, trachea midline Pulmonary: (+) chest port c/d/I; Clear to auscultation bilaterally, no wheezes or crackles CV: Regular rate and rhythm Abdomen: Soft, non-distended, non-tender to palpation in all quadrants; (+) LLQ colostomy Extremities: No peripheral edema Skin: No rashes or lesions noted on visible skin Laboratory: Recent Labs 11/04/230 11/04/23 0155 11/03/23 0115 WBC 10.4* 9.7* 10.0* HGB 8.8* 8.7* 8.7* HCT 26.7* 26.3* 27.0* PLATELET 393* 363* 331 Recent Labs 11/04/23 18311/04/23 0155 11/03/23 0115 NA 142 143 140 K 3.9 3.7 3.8 CL 107 107 104 CO2 23 26 26 BUN 8* 8* 6* CREATININE 0.59* 0.60* 0.59* No results for input(s): AST, ALT, ALKPHOS, BILITOT, BILIDIR in the last 168 hours. Microbiology: 10/24-urine culture-Proteus mirabilis, Pseudomonas 10/24-blood culture-Pseudomonas aeruginosa 10/25-urine culture-Enterococcus faecalis 10/25-blood culture-NGTD 10/28-blood culture-NGTD Radiology/Studies/Procedures: Imaging reviewed. 11/04 CXR IMPRESSION 1. Findings consistent with persistent left lower lobe atelectasis/collapse. 2. Similar patchy/hazy opacity in the central right lower lobe, atelectasis versus pneumonia or aspiration. 3. Possible trace/small pleural effusions Impression: Nighat Barrios is a 58 y.o. male with a history of paraplegia (secondary to cervical spine injury s/pmechanical fall off of roof on 10/2020), diverting colostomy, chronic decubitus ulcer, chronic suprapubic tube, nephrolithiasis, recent UTI was transferred from [facility] for currently being managed for septic shock secondary with Pseudomonas bacteremia sedcondary to complicated UTI with right ureteral obstruction and hydronephrosis s/p right ureteral stenting with 1 renal stone removed. He was improving with Zosyn, but developed new hypoxia with chest imaging showing left lower lobe opacities. He was initially on high flow at 40 LPM but now comfortable on NC. It was felt this might be secondary to mucous plugging. Pulmo has no plans of doing bronchoscopy at this time. Etiology of low grade temperature remains unclear as he does not have any localizing symptom. His O2 requirements is improving as well. No new culture data. It is possible that atelectasis may be contributing to fever. Drug fever is on the differential albeit there is no eosinophilia.. We recommendno change in antimicrobials. CTM. Recommendations: Continue Zosyn IV 4.5g every 8 hours. Monitor fever curve closely, if persistent or worsening may need to do more work up. Follow cultures. Duration depends on clinical course. Patient discussed with ID attending Dr. Daly. Recommendations discussed with primary team. The Infectious Disease consult service will continue to follow the patient. Do not hesitate to pageID Green team with any further questions or concerns. ID will sign off. Please contact us if further consultation required. Lauri Franks MD Infectious Diseases Fellow Pager #: [phone] 11/04/2023 7:41 PM ID ATTENDING I have reviewed the chart as well as the documentation as written by Dr. Franks. I did not re-examine the patient today. The assessment and plan were formulated in discussion with me and I agree with them as documented. I would add/modify: Source of low-grade fevers unclear. Downtrending. We've considered a retained source such as infected port but this would be rare with gram negatives, and would expect to see recurrent bacteremia, which we have not. Wonder about possible non-infectious cause of the elevated temps as above. Rosmery Daly MD Infectious Diseases * Jose Machado MD - 11/04/2023 6:09 PM EST Overnight Events 180: Received a page from the bedside nurse that Mr. Barrios developed hypotension with BP 70s/40s. Hewas having vision changes with blurriness and areas of black. I evaluated him at bedside. He was pale and diaphoretic. He was complaining of dizziness, lightheadedness, difficulty seeing. An EKG, labs, and chest x-ray were obtained. EKG with no acute changes. Chest x-ray consistent with atelectasis. CBC stable, VBG WNL. Lactate 1.4, troponin 60. Patient was given 1 L LR with improvement in SBP [id number]. Patient's dizziness and vision symptoms improved. Senior was notified and evaluated patient at bedside as well. 2201: Notified the patient continues to have labile SBP. Blood pressure cuff was interrogated and appears to be partly the source. SBP 90s and the patient was endorsing mild dizziness. Ordered 1L LR again and will continue to monitor for acute changes. 0: Repeat troponin 72. Very low suspicion for ACS. Will trend q6h until negative. Next draw 5AM. Jose Machado MD 11/04/2023 * Brook Martell RCP - 11/04/2023 5:24 PM EST Respiratory Care Airway Clearance Note Bronchodilator: Duoneb Hypertonic Saline: 7% Hypertonic Saline Mucolytic: Mucomyst (n-Acetylcysteine) Airway Clearance Therapy: During turns, laying flat pt has a productive cough. Patient declining at this time. RR: 12 SpO2: 96 Lung Sounds: Diminished Secretions: RAFIQ. Assessment: Pt received on NC 4L. Duoneb administered this am, all other inhaled medications refused by patient. ACT refused as well. Pt has a productive weak cough during turns while laying flat. Plan: Continue to wean fiO2 as tolerated and encourage ACT with inhaled medications as tolerated. Respiratory Care Pager #[phone] * Daxa Escobar OT - 11/04/2023 12:32 PM EST Occupational Therapy Note Document Type: contact Total Minutes, Occupational Therapy: 0 (11:04-11:17 talking with Pt.) Reason: 11/04/23 1104 Evaluation & Treatment Document Type contact Total Minutes, Occupational Therapy 0 (11:04-11:17 talking with Pt.) Comment, Session Not Performed Pt with flat affect, and short with therapist. Pt not interested in doing anything. Pt playing games on his IPAD using his universal cuff, and stylus. Pt states he has been being fed. Discussed what we could provide him here. Pt not interested. If you don't got the right equipment, I am not interested. Pt not interested in getting OOB, that chair wasn't good (re: the BRODA chair). Told Pt therapy would continue to check on him while in house. Pager: [phone] DAXA ESCOBAR OT 11/04/2023 Occupational Therapy Rehabilitation Department * Monty Sequeira PA - 11/04/2023 7:35 AM EST Images from the original note were not included. Urology Progress Note Patient: Nighat Barrios : 1965 Room: [address] Admit date: 10/25/2023 Attending: Yessi Lopes MD ID: Nighat Barrios is a 58 y.o. male with a history of paraplegia with indwelling SPT, prior nephrolithiasis with reported LL treatment 10 Days Post-Op s/p ureteral stent and bladder stone removal for urosepsis. Subjective/24hr Events: - On LFNC 4L O2 - Afebrile - Code status: DNR, patient agreeable to short term intubation - Satting well on short trials of RA per pulm - WBC wnl - Cr wnl - Pt frustrated with wake ups Current Medications: sodium chloride Nebulization BID piperacillin-tazobactam 4.5 g Intravenous Q8H pantoprazole EC 40 mg Oral Daily ipratropium-albuteroL 3 mL Nebulization Q4H acetylcysteine 600 mg Inhalation Q4H melatonin 6 mg Oral Nightly divalproex ER 500 mg Oral Daily multivitamin with minerals 1 tablet Oral Daily tamsulosin 0.4 mg Oral Daily sodium chloride 0.9 % (flush) 5 mL Intravenous BID heparin (porcine) 5,000 Units Subcutaneous Q8H [place] baclofen 20 mg Oral TID mirabegron ER 25 mg Oral Daily pregabalin 25 mg Oral TID traZODone 50 mg Oral Nightly docusate sodium 100 mg Oral TID senna 34.4 mg Oral Nightly Objective: Last value Range last 24hrs Temperature Temp: 36.7 ??C (98.1 ??F) Temp: [36.7 ??C (98.1 ??F)-37.8 ??C (100 ??F)] Heart Rate Heart Rate: 96 Heart Rate: -- Blood Pressure BP: 111/70 BP: (108-162)/(70-97) Respiratory Rate Resp: 18 Resp: [18] SpO2 SpO2: 97 % SpO2: [91 %-100 %] Intake/Output Summary (Last 24 hours) at 11/04/2023 0743 Last data filed at 11/04/2023 0414 Gross per 24 hour Intake 1908 ml Output 2250 ml Net -342 ml Physical Exam: Gen: NAD, sleeping CV: regular rate Pulm: No stridor or audible wheeze, breathing 4L LFNC Abd: ND : SPT with CYU Ext: well perfused Labs: Recent Labs 11/04/23 0155 11/03/23 0115 11/02/23 004 WBC 9.7* 10.0* 10.2* HGB 8.7* 8.7* 8.8* HCT 26.3* 27.0* 26.6* PLATELET 363* 331 316 Recent Labs 11/04/23 0155 11/03/23 0115 11/02/23 004 NA 143 140 139 K 3.7 3.8 3.9 CL 107 104 103 CO2 26 26 27 BUN 8* 6* 7* CREATININE 0.60* 0.59* 0.67* GLUCOSE 98 105 146 CALCIUM 8.7 8.7 8.2* MAGNESIUM 0.78 0.85 0.88 PHOS 2.9 2.9 2.4* No results found for: SPGRAVITYUA, PHUADIP, PROTEINUADIP, GLUCOSEU, KETONESUA, UROBILIUADIP, BLOODUADIP, NITRATEUA, LEUKOESTERUA, WBCUA, BILIRUBINUA Imaging: XR Chest One View Narrative: EXAMINATION: XR CHEST ONE VIEW CLINICAL HISTORY: hypotensive w/ increased Fi02 TECHNIQUE: 1 view of the chest COMPARISON: 10/31/2023 FINDINGS: The LEFT lower lobe continues to be opacified as on multiple prior studies. There is likely additional small LEFT pleural effusion. The remainder lungs are clear. No pneumothorax or pulmonary edema. Left-sided indwelling catheter has its tip in the superior vena cava. Heart size is normal Impression: LEFT lower lobe opacification due to some combination of consolidation, atelectasis and/or pleural effusion Thank you for letting us participate in the care of this patient. If you are a health care provider and have any questions regarding this report, please contact the number below. For patients who have questions please contact the health career law clerk that requested your imaging first. Electronically signed by: Didi Hernandes MD, [facility] ([phone]), at 11/01/2023 2:05 PM - CT abdomen pelvis 10/28/23: IMPRESSION 1. Interval placement of a right-sided double-J stent within the ureter, expected appearance. 2. Right-sided nephrolithiasis with no hydronephrosis. 3. 2 small wedge-shaped regions of hypoattenuation within the right renal parenchyma are in retrospect visible on the previous CT, though highly obscured by motion artifact on that exam. This may represent focal nephronia with pyelonephritis. There is no intrarenal or pararenal abscess. 4. Bladder is decompressed which limits evaluation. However, there is probably a degree of circumferential wall thickening, most pronounced at the left lateral margin. Consider cystitis. - CT PE 10/28/23: IMPRESSION 1. No pulmonary thromboembolism 2. Occlusive mucous plugging in the left lower lobe bronchus with near total postobstructive left lower lobe collapse Micro: Microbiology Results (Last 30 days) Procedure Component Value Units Date/Time Blood culture [[id number]] Collected: 11/01/23 1430 Lab Status: Preliminary result Specimen: Blood from Foot, Left Updated: 11/03/23 2301 Blood Culture No growth at 2 days. Blood culture [[id number]] Collected: 11/01/23 1420 Lab Status: Preliminary result Specimen: Blood from Foot, Right Updated: 11/03/23 2301 Blood Culture No growth at 2 days. Blood culture [[id number]] Collected: 10/30/23 1300 Lab Status: Preliminary result Specimen: Blood from Hand, Right Updated: 11/03/23 1502 Blood Culture No growth at 4 days. Blood culture [[id number]] (Abnormal) Collected: 10/30/23 1255 Lab Status: Preliminary result Specimen: Blood from Foot, Left Updated: 11/02/23 0825 Blood Culture -- Coagulase negative Staphylococcus species isolated : two morphologies Interpretation of the importance of skin daphne such as Coagulase Negative Staph, Viridans Strep, Corynebacteria and other Gram Positive organisms from a single Blood Culture set requires clinical correlation. Gram Stain Anaerobic -- Growth detected in anaerobic bottle. Gram Positive Cocci in clusters seen Gram Stain Aerobic -- Growth detected in aerobic bottle. Gram Positive Cocci in clusters seen MRSA PCR Screen ([facility]/CGP/APD/NLH) [[id number]] Collected: 10/29/23 0648 Lab Status: Final result Specimen: Nasopharyngeal Swab Updated: 10/29/23 1320 MRSA Result Negative MRSA Interp -- Methicillin-resistant Staphylococcus aureus (MRSA) is NOT DETECTED The MRSA target DNA sequences (mec and SCC) were not detected within the acceptable ranges using the Xpert MRSA NxG on the GeneXpert Dx System ([employer]). This suggests the absence of MRSA in the patient specimen submitted for testing. This test is cleared by the U.S. Food and Drug Administration for clinical use and its performance characteristics have been verified by the [facility] at [facility]. This result does not rule out the presence of any other organisms. Rare false negative results may occur if MRSA is present at low concentrations with much higher concentrations of other organisms including MRSE or S. aureus with an empty SCC cassette. Comment: [VERIFIED DATE]10.29.23 Verified By:Katherine Early (Electronic Signature) Blood culture [[id number]] Collected: 10/28/23 0922 Lab Status: Final result Specimen: Blood from Foot, Left Updated: 11/02/23 1502 Blood Culture No growth at 5 days. Blood culture [[id number]] Collected: 10/28/23 0910 Lab Status: Final result Specimen: Blood from Hand, Right Updated: 11/02/23 1502 Blood Culture No growth at 5 days. Blood culture [[id number]] Collected: 10/25/23 1050 Lab Status: Final result Specimen: Blood Updated: 10/30/23 1501 Blood Culture No growth at 5 days. Blood culture [[id number]] Collected: 10/25/23 1040 Lab Status: Final result Specimen: Blood Updated: 10/30/23 1501 Blood Culture No growth at 5 days. Urine culture Cystoscopic Urine [[id number]] (Abnormal) (Susceptibility) Collected: 10/25/23 0913 Lab Status: Final result Specimen: Cystoscopic Urine Updated: 10/28/23 0748 Urine Culture -- Greater than 50,000 cfu/mL Pseudomonas aeruginosa Greater than 50,000 cfu/mL Enterococcus faecalis Susceptibility Pseudomonas aeruginosa MICROSCAN METHOD Amikacin Sensitive Aztreonam Sensitive Cefepime Sensitive Ceftazidime Sensitive Ciprofloxacin Sensitive Levofloxacin Sensitive [1] Meropenem Sensitive Piperacillin/Tazobactam Sensitive Tobramycin Sensitive [1] Levofloxacin and Ciprofloxacin may not adequately treat infections in critically ill patients even when isolates test susceptible in the laboratory. Contact Infectious Disease before using in critically ill patients. Susceptibility Enterococcus faecalis VITEK 2 METHOD Ampicillin Sensitive Ciprofloxacin Resistant Levofloxacin Resistant Nitrofurantoin Sensitive Penicillin Sensitive Vancomycin Sensitive Urine culture [[id number]] (Abnormal) (Susceptibility) Collected: 10/24/232056 Lab Status: Final result Specimen: Urine Updated: 10/28/23 0804 Urine Culture -- Greater than 100,000 cfu/ml Proteus mirabilis Greater than 100,000 cfu/ml Pseudomonas aeruginosa Susceptibility Proteus mirabilis VITEK 2 METHOD Amikacin Sensitive Ampicillin + Sulbactam Resistant Aztreonam Sensitive Cefazolin Sensitive Cefepime Sensitive Ceftazidime Sensitive Ceftriaxone Sensitive Gentamicin Sensitive Levofloxacin Resistant [1] Meropenem Sensitive Nitrofurantoin Resistant Piperacillin/Tazobactam Sensitive Tetracycline Resistant Tobramycin Sensitive Trimethoprim/Sulfa Resistant [1] Levofloxacin and Ciprofloxacin may not adequately treat infections in critically ill patients even when isolates test susceptible in the laboratory. Contact Infectious Disease before using in critically ill patients. Susceptibility Pseudomonas aeruginosa MICROSCAN METHOD Amikacin Sensitive Aztreonam Sensitive Cefepime Sensitive Ceftazidime Sensitive Ciprofloxacin Resistant Levofloxacin Resistant [1] Meropenem Sensitive Piperacillin/Tazobactam Sensitive Tobramycin Sensitive [1] Levofloxacin and Ciprofloxacin may not adequately treat infections in critically ill patients even when isolates test susceptible in the laboratory. Contact Infectious Disease before using in critically ill patients. Blood culture [[id number]] (Abnormal) (Susceptibility) Collected: 10/24/232056 Lab Status: Final result Specimen: Blood Updated: 10/31/23 0734 Blood Culture -- Pseudomonas aeruginosa detected by PCR Isolate saved. If future testing is required, contact the Microbiology Line Maintenance Technician. Gram Stain Aerobic -- Growth detected in aerobic bottle. Gram Negative Rods seen Results called to and read back by Jose Dean Pseudomonas aeruginosa MICROSCAN METHOD Amikacin Sensitive Aztreonam Sensitive Cefepime Sensitive Ceftazidime Sensitive Ciprofloxacin Sensitive Levofloxacin Sensitive [1] Meropenem Sensitive Piperacillin/Tazobactam Sensitive Tobramycin Sensitive [1] Levofloxacin and Ciprofloxacin may not adequately treat infections in critically ill patients even when isolates test susceptible in the laboratory. Contact Infectious Disease before using in critically ill patients. A/P: Nighat Barrios is a 58 y.o. male now 10 Days Post-Op s/p right ureteral stent and bladder stone removal on 10/25 d/t pseudomonas bacteriemia, UTI. Overnight 10/28, patient had increased oxygen requirements from RA. CXR 10/28 showed concerns for fluid overload. He was upgraded to ICU for diuresis. CT/PE was obtained which was negative for PE however did reveal occlusive mucous plugging found inLLL bronchus with near total post-obstructive LLL collapse. CT abd/pelvis also obtained which did not reveal any renal abscesses. Ucx Pseudomonas/Enterococcus/Proteus, Bcx pseudomonas. Surveillance Bcx x 7 NGTD, Bcx 10/30 w/ coagneg staph. ID curbsided 10/28: OPAT at discharge with limited PO abx options - in progress. He is off pressors and WBC is within normal limits. Zosyn per ID. Off Vanc now as MRSA nares negative. Care management engaged for safe discharge planning in regards to his living situation at the [facility], relationship with his care takers, and assistance getting his motorized wheelchair in working condition. Unfortunately insurance will not cover replacement batteries. plans to coordinate where care givers can come in to hospitalTues (11/03) so they can see how abx pump work. Staff who work closely with abx pump won't be in until 11/03. Will reach out to caregivers today to see if they have been in contact w/ OPAT. ID reaching out to OPAT team about 4 hour home abx infusions. He will need FU URS/cystolitholapaxy for right 7mm UPJ stone, possibly right renal stones, residualbladder stones, which he is aware of. He will likely follow-up with his primary urologist for this.Called Dr. Molina's office and spoke w/ rehabilitation aide/scheduler 10/30. Awaiting call back from their office. On 10/31 pt again required HFNC. CXR similar LLL collapse. RT continuing percussive therapy. Consulted ICU team to discuss if he is a candidate for bronchoscopy - can be considered, however recommended we reach out to interventional pulmonology - consulted with initial recs for hypertonic saline nebs (7%, can decrease to 3% if not tolerated), continue percussion. Will follow up final recommendations. We attempted transfer to a medical service on 11/03 and 11/04, but their service is full. Spoke w/ attending Dr. Andres Covington. Of note, patient was made DNR/DNI however patient is agreeable with intubation for a short amount of time. NEURO: home baclofen, divalproex, pregabalin, trazodone, hydropxyzine prn, lorazepam prn; tylenol and oxycodone prn for pain CV: HDS PULM: Encourage cough, deep breathing, percussive therapy with RT. HFNC PRN, wean as able - Duoneb - Mucomyst - Hypertonic saline nebs - awaiting ICU recs GI: home PPI : home mirabegron, chronic sPT FEN: carb control diet ENDO: SSI HEME: SQH ID: on Zosyn (10/26 - ) -Increased dosage to 4.5g 11/01/23 per ID - Cultures: - Ucx 10/25 & 10/24 with pseudomonas, proteus, and enterococcus - final - Bcx 10/24 with Pseudomonas - final - Bcx (2) 10/25 - NGTD - Bcx (2) 10/28 - NGTD - Bcx (2) 10/30 - NGTD & coag neg staph - OPAT order placed 10/31 PPX: home PPI, SQH, SCDs DISPO: Floor CODE: DNR/DNI however okay with intubation for short period of time Care givers would be the ones administering the abx at home, and they are in discussion with OPAT team about abx administration. Plan discussed with Dr. Lopes, Urology attending. KAN Ornelas 11/04/2023 [id number] * Lauri Jovel RCP - 11/04/2023 3:30 AM EST Nighat Barrios is a 58 y.o. male notable PMH paraplegia was admitted on 10/25/2023 with sepsis in thesetting of nephrolithiasis (pseudomonas/enterococcus). Pt agreed to 1 neb at 1999. I tried to mix 2 meds in 1 neb and his reply was I give you an inch,you take a yard. He received Duoneb only and wished to be left to sleep for the night. He has been asked to perform treatments that will benefit his condition and the rationale behind them has been described. Pt refused therapy for the night I just want sleep. Lauri Jovel RN MENTAL HEALTH * Deisy Herrmann RCP - 11/03/2023 5:13 PM EST 11/03/23 1400 Oxygen Therapy O2 Device NC O2 Flow Rate (L/min) 6 L/min SpO2 96 % Resp 18 Pt received on 6L NC. Was given all AW clearance meds with resistance from the patient every time. Will continue to educate patient on importance of AW clearance and monitor closely. 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 Vitals: Last value Range last 24 hrs Temperature Temp: 36.7 ??C (98.1 ??F) Temp: [36.7 ??C (98.1 ??F)-38 ??C (100.4 ??F)] Heart Rate Heart Rate: 96 Heart Rate: -- Blood Pressure BP: 108/73 BP: (99-138)/(65-87) Respiratory Rate Resp: 18 Resp: [18-20] SpO2 SpO2: 96 % SpO2: [94 %-98 %] Physical Exam: General: In no acute distress, resting in bed comfortably, pleasant HEENT: No scleral icterus, moist mucous membranes, no oropharyngeal lesions Neck: Supple, trachea midline Pulmonary: (+) chest port c/d/I; Clear to auscultation bilaterally, no wheezes or crackles CV: Regular rate and rhythm Abdomen: Soft, non-distended, non-tender to palpation in all quadrants; (+) LLQ colostomy Extremities: No peripheral edema Skin: No rashes or lesions noted on visible skin Laboratory: Recent Labs 11/03/23 0115 11/02/23 0045 11/01/23 1420 WBC 10.0* 10.2* 9.6* HGB 8.7* 8.8* 9.5* HCT 27.0* 26.6* 28.8* PLATELET 331 316 281 Recent Labs 11/03/23 0115 11/02/23 0045 11/01/23 1420 NA 140 139 138 K 3.8 3.9 4.1 CL 104 103 103 CO2 26 27 27 BUN 6* 7* 8* CREATININE 0.59* 0.67* 0.62* No results for input(s): AST, ALT, ALKPHOS, BILITOT, BILIDIR in the last 168 hours. Microbiology: 10/24-urine culture-Proteus mirabilis, Pseudomonas 10/24-blood culture-Pseudomonas aeruginosa 10/25-urine culture-Enterococcus faecalis 10/25-blood culture-NGTD 10/28-blood culture-NGTD Radiology/Studies/Procedures: Imaging reviewed. 11/01 CXR: IMPRESSION LEFT lower lobe opacification due to some combination of consolidation, atelectasis and/or pleural effusion Impression: Nighat Barrios is a 58 y.o. male with a history of paraplegia (secondary to cervical spine injury s/pmechanical fall off of roof on 10/2020), diverting colostomy, Chronic decubitus ulcer, chronic suprapubic tube, nephrolithiasis, recent UTI was transferred from [facility] for currently being managed for septic shock secondary with Pseudomonas bacteremia sedcondary to complicated UTI with right ureteral obstruction and hydronephrosis s/p right ureteral stenting with 1 renal stone removed. He was improving with Zosyn, but developed new hypoxia with chest imaging showing left lower lobe opacities. He was initially on high flow at 40 LPM but now comfortable on NC. It was felt this might be secondary to mucous plugging. Pulmo has no plans of doing bronchoscopy at this time. He remains to have low grade fevers of 100.4F from 11/02. He does not have any localizing symptoms at this time. We recommendno change in antimicrobials as we do not have any new culture data. If he continues to develop fevers in the coming days, it might be worth investigating his pulmonary process. Will follow with you. Recommendations: Continue Zosyn IV 4.5g every 8 hours. Monitor fever curve closely, if persistent, may need to do more work up. Follow cultures. Duration depends on clinical course. Patient discussed with ID attending Dr. Daly. Recommendations discussed with primary team. X The Infectious Disease consult service will continue to follow the patient. Do not hesitate to page ID Green team with any further questions or concerns. ID will sign off. Please contact us if further consultation required. Lauri Franks MD Infectious Diseases Fellow Pager #: [phone] 11/03/2023 6:06 PM ID ATTENDING I have reviewed the chart as well as the documentation as written by Dr. Franks. I did not re-examine the patient today. The assessment and plan were formulated in discussion with me and I agree with them as documented. Rosmery Daly MD Infectious Diseases * Lobo Childs MD - 11/03/2023 8:15 AM EST Images from the original note were not included. INPATIENT PULMONOLOGY FOLLOW-UP NOTE SECTION OF PULMONARY/CRITICAL CARE MEDICINE Patient Name: Nighat Barrios : 1965 Medical Record: [id number] Date of Service: 11/03/2023 Hospital Day # Hospital Day: 10 Subjective: - Feels fine, breathing better. - Secretion management at home is primarily just spitting. Has not used a VPEP before. - He would really like to go home. - Trialed on room air good oxygen saturation of 96%. Review of Systems: Pertinent findings from 12 point ROS listed above in subjective. Objective: Physical Exam: BP 123/82 (BP Location (NBP): Left arm, Patient Position: Lying) Pulse 96 Temp 37.3 ??C (99.1 ??F) (Oral) Resp 18 Ht 188 cm (6' 2) Wt 85.4 kg (188 lb 4.7 oz) SpO2 97% BMI 24.18 kg/m?? Temp (24hrs), Av.4 ??C (99.3 ??F), Min:36.9 ??C (98.4 ??F), Max:38 ??C (100.4 ??F) Intake/Output Summary (Last 24 hours) at 11/03/2023 0815 Last data filed at 11/03/2023 0756 Gross per 24 hour Intake 804 ml Output 1775 ml Net -971 ml General: This is a 58 y.o. male, NAD Cardiovascular: RRR Respiratory: Coarse breath sounds bilaterally Musculoskeletal: Normal bulk and tone Extremities: no LE edema noted, no clubbing Integument: No rash. Neurologic: Alert and oriented, moves all extremities appropriately, no obvious focal deficits Psychologic: Normal mood and affect. Medications: Scheduled Meds: sodium chloride Nebulization BID piperacillin-tazobactam 4.5 g Intravenous Q8H pantoprazole EC 40 mg Oral Daily ipratropium-albuteroL 3 mL Nebulization Q4H acetylcysteine 600 mg Inhalation Q4H melatonin 6 mg Oral Nightly divalproex ER 500 mg Oral Daily multivitamin with minerals 1 tablet Oral Daily tamsulosin 0.4 mg Oral Daily sodium chloride 0.9 % (flush) 5 mL Intravenous BID heparin (porcine) 5,000 Units Subcutaneous Q8H ALDEN baclofen 20 mg Oral TID mirabegron ER 25 mg Oral Daily pregabalin 25 mg Oral TID traZODone 50 mg Oral Nightly docusate sodium 100 mg Oral TID senna 34.4 mg Oral Nightly Continuous Infusions: PRN Meds: sodium chloride, iohexoL, ipratropium-albuteroL, LORazepam, guaiFENesin, potassium chloride ER OR potassium chloride ER, acetaminophen, sodium chloride 0.9 % (flush), lidocaine, sodium chloride 0.9 % (flush), hydrOXYzine, magnesium sulfate OR magnesium sulfate, sodium chloride 0.9% (flush) Diagnostics: WBC: 10 H.7 Assessment: Nighat Barrios is a 58 y.o. male notable PMH paraplegia was admitted on 10/25/2023 with sepsis in thesetting of nephrolithiasis (pseudomonas/enterococcus). Overall he has improved hemodynamically, buthaving ongoing intermittent supplemental oxygen requirement on HFNC over the weekend. On the morning of 11/03/2023 he was having excellent oxygen saturation on room air. Pulmonary medicine was originall y consulted on 11/02/2023 in regards to possible bronchoscopy given mucus obstruction. The patient remains weak given his baseline paraplegia, ongoing illness, prolonged hospitalization. His weak coughis currently managed with Cough Assist/vibration, nebulized hypertonic saline. We currently do not believe that bronchoscopy would change his overall care and elect for a more conservative option. Thankfully, the patient has successfully transitioned to room air (based on short trial). We recommendcontinuing his current care with the goal of titrating off supplemental oxygen since it's the primary barrier to discharge. - Bronchoscopy currently not indicated. - Trial on room air Thank you for this consult, we will continue to follow along with you. Lobo Childs MD Fellow Pulmonary & Critical Care Medicine [facility] Associated attestation - Makenzie Dominguez MD - 11/03/2023 2:04 PM EST I have seen and examined the patient, and Dr. Childs and I have formulated an assessment and plan together. I have reviewed and agree with the note by Dr. Childs. Briefly, 58 yo man with paraplegia since a fall from a roof in 2019, with diverting colostomy, suprapubic catheter, chronic decubitus ulcer, admitted 10/25 to urology with pseudomonas urosepsis/obstructing right nephrolithiasis, s/p stenting. He has weak cough and since 10/28 has had radiographic evidence of mucus airway obstruction/LLL collapse, with intermittent high O2 needs. He appears to be improving with aggressive pulmonary toilet (today I removed his O2 for several minutes and he remained at 95% on RA). Agree with continued aggressive pulmonary toilet with hypertonic saline nebulizersand cough assist with vibration. Suggest adding percussive treatment (I have taken the liberty of placing this order). Makenzie Dominguez MD Staff Physician Pulmonary and Critical Care Medicine 1:59 PM 11/03/2023 * Iain Egan MD - 11/03/2023 7:15 AM EST Images from the original note were not included. Urology Progress Note Patient: Nighat Barrios : 1965 Room: [address] Admit date: 10/25/2023 Attending: Yessi Lopes MD ID: Nighat Barrios is a 58 y.o. male with a history of paraplegia with indwelling SPT, prior nephrolithiasis with reported LL treatment 10 Days Post-Op s/p ureteral stent and bladder stone removal for urosepsis. Subjective/24hr Events: - On HFNC for desat to 80s - titrating between 35-45L 40-100% FiO2 - Code status: DNR, patient agreeable to short term intubation - Pt benefiting from percussive therapy per RT, however refusing some interventions. Discussed again with the patient today that in order to be safely discharged, his oxygenation needs to improve andthat RT therapies will get him closer to that goal. Discussed possibility of interventions for mucous plugging with the patient, said he would be open to this discussion. - WBC wnl - Cr wnl - Pt frustrated with wake ups Current Medications: sodium chloride Nebulization BID piperacillin-tazobactam 4.5 g Intravenous Q8H pantoprazole EC 40 mg Oral Daily ipratropium-albuteroL 3 mL Nebulization Q4H acetylcysteine 600 mg Inhalation Q4H melatonin 6 mg Oral Nightly divalproex ER 500 mg Oral Daily multivitamin with minerals 1 tablet Oral Daily tamsulosin 0.4 mg Oral Daily sodium chloride 0.9 % (flush) 5 mL Intravenous BID heparin (porcine) 5,000 Units Subcutaneous Q8H ALDEN baclofen 20 mg Oral TID mirabegron ER 25 mg Oral Daily pregabalin 25 mg Oral TID traZODone 50 mg Oral Nightly docusate sodium 100 mg Oral TID senna 34.4 mg Oral Nightly Objective: Last value Range last 24hrs Temperature Temp: 36.7 ??C (98.1 ??F) Temp: [36.7 ??C (98.1 ??F)-37.8 ??C (100 ??F)] Heart Rate Heart Rate: 96 Heart Rate: -- Blood Pressure BP: 111/70 BP: (108-162)/(70-97) Respiratory Rate Resp: 18 Resp: [18] SpO2 SpO2: 97 % SpO2: [91 %-100 %] Intake/Output Summary (Last 24 hours) at 11/04/2023 0715 Last data filed at 11/04/2023 0414 Gross per 24 hour Intake 1908 ml Output 2250 ml Net -342 ml Physical Exam: Gen: NAD, awake/alert CV: regular rate Pulm: No stridor or audible wheeze, breathing 35L HFNC 40% FiO2 Abd: soft, ND : SPT with CYU Ext: well perfused Labs: Recent Labs 11/04/23 0155 11/03/23 0115 11/02/23 0045 WBC 9.7* 10.0* 10.2* HGB 8.7* 8.7* 8.8* HCT 26.3* 27.0* 26.6* PLATELET 363* 331 316 Recent Labs 11/04/23 0155 11/03/23 0115 11/02/23 0045 NA 143 140 139 K 3.7 3.8 3.9 CL 107 104 103 CO2 26 26 27 BUN 8* 6* 7* CREATININE 0.60* 0.59* 0.67* GLUCOSE 98 105 146 CALCIUM 8.7 8.7 8.2* MAGNESIUM 0.78 0.85 0.88 PHOS 2.9 2.9 2.4* No results found for: SPGRAVITYUA, PHUADIP, PROTEINUADIP, GLUCOSEU, KETONESUA, UROBILIUADIP, BLOODUADIP, NITRATEUA, LEUKOESTERUA, WBCUA, BILIRUBINUA Imaging: XR Chest One View Narrative: EXAMINATION: XR CHEST ONE VIEW CLINICAL HISTORY: hypotensive w/ increased Fi02 TECHNIQUE: 1 view of the chest COMPARISON: 10/31/2023 FINDINGS: The LEFT lower lobe continues to be opacified as on multiple prior studies. There is likely additional small LEFT pleural effusion. The remainder lungs are clear. No pneumothorax or pulmonary edema. Left-sided indwelling catheter has its tip in the superior vena cava. Heart size is normal Impression: LEFT lower lobe opacification due to some combination of consolidation, atelectasis and/or pleural effusion Thank you for letting us participate in the care of this patient. If you are a health care provider and have any questions regarding this report, please contact the number below. For patients who have questions please contact the health career law clerk that requested your imaging first. Electronically signed by: Didi Hernandes MD, [facility] ([phone]), at 11/01/2023 2:05 PM - CT abdomen pelvis 10/28/23: IMPRESSION 1. Interval placement of a right-sided double-J stent within the ureter, expected appearance. 2. Right-sided nephrolithiasis with no hydronephrosis. 3. 2 small wedge-shaped regions of hypoattenuation within the right renal parenchyma are in retrospect visible on the previous CT, though highly obscured by motion artifact on that exam. This may represent focal nephronia with pyelonephritis. There is no intrarenal or pararenal abscess. 4. Bladder is decompressed which limits evaluation. However, there is probably a degree of circumferential wall thickening, most pronounced at the left lateral margin. Consider cystitis. - CT PE 10/28/23: IMPRESSION 1. No pulmonary thromboembolism 2. Occlusive mucous plugging in the left lower lobe bronchus with near total postobstructive left lower lobe collapse Micro: Microbiology Results (Last 30 days) Procedure Component Value Units Date/Time Blood culture [[id number]] Collected: 11/01/23 1430 Lab Status: Preliminary result Specimen: Blood from Foot, Left Updated: 11/03/23 2301 Blood Culture No growth at 2 days. Blood culture [[id number]] Collected: 11/01/23 1420 Lab Status: Preliminary result Specimen: Blood from Foot, Right Updated: 11/03/23 2301 Blood Culture No growth at 2 days. Blood culture [[id number]] Collected: 10/30/23 1300 Lab Status: Preliminary result Specimen: Blood from Hand, Right Updated: 11/03/23 1502 Blood Culture No growth at 4 days. Blood culture [[id number]] (Abnormal) Collected: 10/30/23 1255 Lab Status: Preliminary result Specimen: Blood from Foot, Left Updated: 11/02/23 0825 Blood Culture -- Coagulase negative Staphylococcus species isolated : two morphologies Interpretation of the importance of skin daphne such as Coagulase Negative Staph, Viridans Strep, Corynebacteria and other Gram Positive organisms from a single Blood Culture set requires clinical correlation. Gram Stain Anaerobic -- Growth detected in anaerobic bottle. Gram Positive Cocci in clusters seen Gram Stain Aerobic -- Growth detected in aerobic bottle. Gram Positive Cocci in clusters seen MRSA PCR Screen ([facility]/CGP/APD/NLH) [[id number]] Collected: 10/29/23 0648 Lab Status: Final result Specimen: Nasopharyngeal Swab Updated: 10/29/23 1320 MRSA Result Negative MRSA Interp -- Methicillin-resistant Staphylococcus aureus (MRSA) is NOT DETECTED The MRSA target DNA sequences (mec and SCC) were not detected within the acceptable ranges using the Xpert MRSA NxG on the GeneXpert Dx System ([employer]). This suggests the absence of MRSA in the patient specimen submitted for testing. This test is cleared by the U.S. Food and Drug Administration for clinical use and its performance characteristics have been verified by the [facility] at [facility]. This result does not rule out the presence of any other organisms. Rare false negative results may occur if MRSA is present at low concentrations with much higher concentrations of other organisms including MRSE or S. aureus with an empty SCC cassette. Comment: [VERIFIED DATE]10.29.23 Verified By:Katherine Early (Electronic Signature) Blood culture [[id number]] Collected: 10/28/23 0922 Lab Status: Final result Specimen: Blood from Foot, Left Updated: 11/02/23 1502 Blood Culture No growth at 5 days. Blood culture [[id number]] Collected: 10/28/23 0910 Lab Status: Final result Specimen: Blood from Hand, Right Updated: 11/02/23 1502 Blood Culture No growth at 5 days. Blood culture [[id number]] Collected: 10/25/23 1050 Lab Status: Final result Specimen: Blood Updated: 10/30/23 1501 Blood Culture No growth at 5 days. Blood culture [[id number]] Collected: 10/25/23 1040 Lab Status: Final result Specimen: Blood Updated: 10/30/23 1501 Blood Culture No growth at 5 days. Urine culture Cystoscopic Urine [[id number]] (Abnormal) (Susceptibility) Collected: 10/25/23 0913 Lab Status: Final result Specimen: Cystoscopic Urine Updated: 10/28/23 0748 Urine Culture -- Greater than 50,000 cfu/mL Pseudomonas aeruginosa Greater than 50,000 cfu/mL Enterococcus faecalis Susceptibility Pseudomonas aeruginosa MICROSCAN METHOD Amikacin Sensitive Aztreonam Sensitive Cefepime Sensitive Ceftazidime Sensitive Ciprofloxacin Sensitive Levofloxacin Sensitive [1] Meropenem Sensitive Piperacillin/Tazobactam Sensitive Tobramycin Sensitive [1] Levofloxacin and Ciprofloxacin may not adequately treat infections in critically ill patients even when isolates test susceptible in the laboratory. Contact Infectious Disease before using in critically ill patients. Susceptibility Enterococcus faecalis VITEK 2 METHOD Ampicillin Sensitive Ciprofloxacin Resistant Levofloxacin Resistant Nitrofurantoin Sensitive Penicillin Sensitive Vancomycin Sensitive Urine culture [[id number]] (Abnormal) (Susceptibility) Collected: 10/24/232056 Lab Status: Final result Specimen: Urine Updated: 10/28/23 0804 Urine Culture -- Greater than 100,000 cfu/ml Proteus mirabilis Greater than 100,000 cfu/ml Pseudomonas aeruginosa Susceptibility Proteus mirabilis VITEK 2 METHOD Amikacin Sensitive Ampicillin + Sulbactam Resistant Aztreonam Sensitive Cefazolin Sensitive Cefepime Sensitive Ceftazidime Sensitive Ceftriaxone Sensitive Gentamicin Sensitive Levofloxacin Resistant [1] Meropenem Sensitive Nitrofurantoin Resistant Piperacillin/Tazobactam Sensitive Tetracycline Resistant Tobramycin Sensitive Trimethoprim/Sulfa Resistant [1] Levofloxacin and Ciprofloxacin may not adequately treat infections in critically ill patients even when isolates test susceptible in the laboratory. Contact Infectious Disease before using in critically ill patients. Susceptibility Pseudomonas aeruginosa MICROSCAN METHOD Amikacin Sensitive Aztreonam Sensitive Cefepime Sensitive Ceftazidime Sensitive Ciprofloxacin Resistant Levofloxacin Resistant [1] Meropenem Sensitive Piperacillin/Tazobactam Sensitive Tobramycin Sensitive [1] Levofloxacin and Ciprofloxacin may not adequately treat infections in critically ill patients even when isolates test susceptible in the laboratory. Contact Infectious Disease before using in critically ill patients. Blood culture [[id number]] (Abnormal) (Susceptibility) Collected: 10/24/232056 Lab Status: Final result Specimen: Blood Updated: 10/31/23733 Blood Culture -- Pseudomonas aeruginosa detected by PCR Isolate saved. If future testing is required, contact the Microbiology Line Maintenance Technician. Gram Stain Aerobic -- Growth detected in aerobic bottle. Gram Negative Rods seen Results called to and read back by Jose Dean Pseudomonas aeruginosa MICROSCAN METHOD Amikacin Sensitive Aztreonam Sensitive Cefepime Sensitive Ceftazidime Sensitive Ciprofloxacin Sensitive Levofloxacin Sensitive [1] Meropenem Sensitive Piperacillin/Tazobactam Sensitive Tobramycin Sensitive [1] Levofloxacin and Ciprofloxacin may not adequately treat infections in critically ill patients even when isolates test susceptible in the laboratory. Contact Infectious Disease before using in critically ill patients. A/P: Nighat Barrios is a 58 y.o. male now 10 Days Post-Op s/p right ureteral stent and bladder stone removal on 10/25 d/t pseudomonas bacteriemia, UTI. Overnight 10/28, patient had increased oxygen requirements from RA. CXR 10/28 showed concerns for fluid overload. He was upgraded to ICU for diuresis. CT/PE was obtained yesterday which was negative for PE however did reveal occlusive mucous plugging found in LLL bronchus with near total post-obstructive LLL collapse. CT abd/pelvis also obtained which did not reveal any renal abscesses. Ucx Pseudomonas/Enterococcus/Proteus, Bcx pseudomonas. Surveillance Bcx x 4 NGTD. ID curbsided 10/28: OPAT at discharge with limited PO abx options - in progress. He is off pressors and WBC is withinnormal limits. Zosyn per ID. Off Vanc now as MRSA nares negative. Care management engaged for safe discharge planning in regards to his living situation at the [facility], relationship with his care takers, and assistance getting his motorized wheelchair in working condition. CM plans to coordinate where care givers can come in to hospitalTues (11/03) so they can see how abx pump work. Staff who work closely with abx pump won't be in until 11/03. ID reaching out to OPAT team about 4 hour home abx infusions. He will need FU URS/cystolitholapaxy for right 7mm UPJ stone, possibly right renal stones, residualbladder stones, which he is aware of. He will likely follow-up with his primary urologist for this.Called Dr. Molina's office and spoke w/ rehabilitation aide/scheduler 10/30. Awaiting call back 11/03. On 10/31 pt again required HFNC. CXR similar LLL collapse. RT continuing percussive therapy. Consulted ICU team to discuss if he is a candidate for bronchoscopy - can be considered, however recommended we reach out to interventional pulmonology - consulted with initial recs for hypertonic saline nebs (7%, can decrease to 3% if not tolerated), continue percussion. Will follow up final recommendations. We will attempt transfer to a medical service today. Of note, patient was made DNR/DNI however patient is agreeable with intubation for a short amount of time. NEURO: home baclofen, divalproex, pregabalin, trazodone, hydropxyzine prn, lorazepam prn; tylenol and oxycodone prn for pain CV: HDS PULM: Encourage cough, deep breathing, percussive therapy with RT. HFNC PRN, wean as able - Duoneb - Mucomyst - Hypertonic saline nebs - awaiting ICU recs GI: home PPI : home mirabegron, chronic sPT FEN: carb control diet ENDO: SSI HEME: SQH ID: on Zosyn (10/26 - ) -Increased dosage to 4.5g 11/01/23 per ID - Cultures: - Ucx 10/25 & 10/24 with pseudomonas, proteus, and enterococcus - final - Bcx 10/24 with Pseudomonas - final - Bcx (2) 10/25 - NGTD - Bcx (2) 10/28 - NGTD - Bcx (2) 10/30 - NGTD & coag neg staph - OPAT order placed 10/31 PPX: home PPI, SQH, SCDs DISPO: Floor CODE: DNR/DNI however okay with intubation for short period of time -- Likely discharge the earliest next Friday 11/03 after caregivers come in to learn how abx pump works. Care givers would be the ones administering the abx at home. Plan discussed with Dr. Lopes, Urology attending. Iain Egan MD 11/04/2023 [id number] * Maritza Tiwari RRT - 11/02/2023 9:11 PM EST Respiratory Therapy Heated Humidified High Flow INDICATIONS: Heat/Humidification HIGH FLOW SETTINGS: Interface: High flow nasal cannula Flow: 40 L/min FiO2: 40 % VITAL SIGNS: HR: 96 RR: 20 SpO2: 95 % CURRENT MEDICATIONS: Nebulized Medications: 3% Hypertonic Saline,n Acetylcystine and Duo Neb Q 4 hours BREATH SOUNDS: coarse Last Chest X-ray: Impression LEFT lower lobe opacification due to some combination of consolidation, atelectasis and/or pleural effusion Electronically signed by: Didi Hernandes MD, [facility] ([phone]), at 11/01/2023 2:05 PM ASSESSMENT: Patient received on above noted settings. Tolerated well overnight without event. Small thick white secretions orally suctioned after LANEY with oscillations, tolerated well and effective with mouthseal (patient does not like masks) PLAN: Will continue to monitor and support MARITZA TIWARI RRT * Amelia Caputo RT - 11/02/2023 4:51 PM EST Respiratory Therapy Heated Humidified High Flow INDICATIONS: Heat/Humidification HIGH FLOW SETTINGS: Interface: (S) High flow mask (complaining of raw nose, requesting mask) Flow: (S) 40 L/min FiO2: (S) 45 % VITAL SIGNS: HR: 96 RR: 18 SpO2: 92 % SKIN ASSESSMENT: NIV Skin Assessment WDL: WDL Except Bridge of Nose Skin Assessment: No Injury Cheeks Skin Assessment: Erythema Forehead Skin Assessment: No Injury Mepilex Applied: (gauze placaed) Nares Assessment WDL: (appear OK but complaing of feeling dry/raw) BREATH SOUNDS/Secretions: small white thick ASSESSMENT: Received patient on HFNC 45lpm 50% sating 96% RR ~24 Given scheudled nebs. No complaints of dyspnea. Cough weak & congested, trouble clearing. Small thick white secretions orally suctioned after LANEY with oscillations, tolerated well and effective with mouthseal (patient does not like masks) ~1500 sustained desat to mid 80s titrated to 45%, given scheduled nebs and performed LANEY PLAN: SpO2 goal >92% Encourage deep breath and cough Up to chair if able Inhaled medications: duoneb Q4, mucomyst Q4, 7% BID Aggressive pulmonary toilet, LANEY TID and as needed * Abdifatah Briseno - 11/02/2023 4:10 PM EST Nutrition Services Note - Low Nutrition Acuity Nighat Barrios is a 58 y.o. male Reason for intervention: hospital day 9 Nutrition Plan: Continue diet order Encourage good PO Linda Valerio noted Previous Lasix noted Added snack 2x/d Feeding assistance noted Monitor weight Patient scheduled for a hospital length of stay nutrition evaluation. Automation And Controls Supervisor met with pt at bedside. He reports that his appetite is okay and that he eats as much of his meals as he can but sometimesis too fatigued to finish d/t difficulty breathing. Automation And Controls Supervisor discussed ways to manage fatigue while eating such as selecting softer/liquid foods. Pt agreeable to diced pears and yogurt for snacks. Per documentation patient has variable PO intakes recorded at mostly 50-100% (one 0%, one <10%) over the past 5 days. According to dining services software they have ordered an average ~1242kcals/day within the same duration. Pt reports a UBW of ~180-185lbs. Weight loss observed per flowsheets, not clinically significant atthis time. Please update and trend wts to allow for ongoing assessment of weight changes. Clinical Nutrition to monitor and follow. Active Orders Diet Regular diet Frequency: Effective Now Number of Occurrences: Until Specified Admit Weight: 81.65 kg Estimated body mass index is 24.18 kg/m?? as calculated from the following: Height as of this encounter: 188 cm (6' 2). Weight as of this encounter: 85.4 kg (188 lb 4.7 oz). Wt Readings from Last 5 Encounters: 10/30/23 85.4 kg (188 lb 4.7 oz) Weight loss: not clinically significant Appetite: Variable (primarily 50-100%) Food allergies:no known food allergies Chewing/Swallowing difficulty: patient reports some difficulty with chewing r/t fatigue with difficulty breathing but tolerating current diet Nausea/Vomiting: no nausea and no vomiting Last Bowel Movement: 11/01/23 Patient education / questions: all nutrition related questions answered at this time Abdifatah Briseno, Shopper * Adam Rapp MD - 11/02/2023 9:06 AM EST Images from the original note were not included. Urology Progress Note Patient: Nighat Barrios : 1965 Room: [address] Admit date: 10/25/2023 Attending: Yessi Lopes MD ID: Nighat Barrios is a 58 y.o. male with a history of paraplegia with indwelling SPT, prior nephrolithiasis with reported LL treatment 8 Days Post-Op s/p ureteral stent and bladder stone removal for urosepsis. Subjective/24hr Events: - On HFNC for desat to 80s - titrating between 35-45L 40-100% FiO2 - Chest x ray w/ similar LLL atelectasis - Code status: DNR, patient agreeable to short term intubation - Pt benefiting from percussive therapy per RT, however refusing some interventions. Discussed again with the patient today that in order to be safely discharged, his oxygenation needs to improve andthat RT therapies will get him closer to that goal. Discussed possibility of interventions for mucous plugging with the patient, said he would be open to this discussion. - Single elevated temp overnight (100.6), per report improved with removal of blankets - WBC wnl - Cr wnl Current Medications: sodium phosphate 15 mmol Intravenous Once piperacillin-tazobactam 4.5 g Intravenous Q8H pantoprazole EC 40 mg Oral Daily ipratropium-albuteroL 3 mL Nebulization Q4H acetylcysteine 600 mg Inhalation Q4H melatonin 6 mg Oral Nightly divalproex ER 500 mg Oral Daily multivitamin with minerals 1 tablet Oral Daily tamsulosin 0.4 mg Oral Daily sodium chloride 0.9 % (flush) 5 mL Intravenous BID heparin (porcine) 5,000 Units Subcutaneous Q8H ALDEN baclofen 20 mg Oral TID mirabegron ER 25 mg Oral Daily pregabalin 25 mg Oral TID traZODone 50 mg Oral Nightly docusate sodium 100 mg Oral TID senna 34.4 mg Oral Nightly Objective: Last value Range last 24hrs Temperature Temp: 36.9 ??C (98.4 ??F) Temp: [36.9 ??C (98.4 ??F)-38.1 ??C (100.6 ??F)] Heart Rate Heart Rate: 96 Heart Rate: -- Blood Pressure BP: 104/61 BP: (75-166)/(43-114) Respiratory Rate Resp: 24 Resp: [20-24] SpO2 SpO2: 96 % SpO2: [82 %-98 %] Intake/Output Summary (Last 24 hours) at 11/02/2023 0906 Last data filed at 11/02/2023 0800 Gross per 24 hour Intake 1855 ml Output 1925 ml Net -70 ml Physical Exam: Gen: NAD, awake/alert CV: regular rate Pulm: No stridor or audible wheeze, breathing 35L HFNC 40% FiO2 Abd: soft, ND : SPT with CYU Ext: well perfused Labs: Recent Labs 11/02/23 0045 11/01/23 1420 11/01/23 0028 WBC 10.2* 9.6* 8.2 HGB 8.8* 9.5* 9.2* HCT 26.6* 28.8* 28.0* PLATELET 316 281 267 Recent Labs 11/02/23 0045 11/01/23 1420 11/01/23 0028 NA 139 138 143 K 3.9 4.1 4.5 CL 103 103 107 CO2 27 27 30 BUN 7* 8* 9* CREATININE 0.67* 0.62* 0.67* GLUCOSE 146 107 105 CALCIUM 8.2* 8.1* 8.2* MAGNESIUM 0.88 0.75 0.86 PHOS 2.4* 2.7 3.6 No results found for: SPGRAVITYUA, PHUADIP, PROTEINUADIP, GLUCOSEU, KETONESUA, UROBILIUADIP, BLOODUADIP, NITRATEUA, LEUKOESTERUA, WBCUA, BILIRUBINUA Imaging: XR Chest One View Narrative: EXAMINATION: XR CHEST ONE VIEW CLINICAL HISTORY: hypotensive w/ increased Fi02 TECHNIQUE: 1 view of the chest COMPARISON: 10/31/2023 FINDINGS: The LEFT lower lobe continues to be opacified as on multiple prior studies. There is likely additional small LEFT pleural effusion. The remainder lungs are clear. No pneumothorax or pulmonary edema. Left-sided indwelling catheter has its tip in the superior vena cava. Heart size is normal Impression: LEFT lower lobe opacification due to some combination of consolidation, atelectasis and/or pleural effusion Thank you for letting us participate in the care of this patient. If you are a health care provider and have any questions regarding this report, please contact the number below. For patients who have questions please contact the health career law clerk that requested your imaging first. Electronically signed by: Didi Hernandes MD, [facility] ([phone]), at 11/01/2023 2:05 PM - CT abdomen pelvis 10/28/23: IMPRESSION 1. Interval placement of a right-sided double-J stent within the ureter, expected appearance. 2. Right-sided nephrolithiasis with no hydronephrosis. 3. 2 small wedge-shaped regions of hypoattenuation within the right renal parenchyma are in retrospect visible on the previous CT, though highly obscured by motion artifact on that exam. This may represent focal nephronia with pyelonephritis. There is no intrarenal or pararenal abscess. 4. Bladder is decompressed which limits evaluation. However, there is probably a degree of circumferential wall thickening, most pronounced at the left lateral margin. Consider cystitis. - CT PE 10/28/23: IMPRESSION 1. No pulmonary thromboembolism 2. Occlusive mucous plugging in the left lower lobe bronchus with near total postobstructive left lower lobe collapse Micro: Microbiology Results (Last 30 days) Procedure Component Value Units Date/Time Blood culture [[id number]] Collected: 10/30/23 1300 Lab Status: Preliminary result Specimen: Blood from Hand, Right Updated: 11/01/23 1502 Blood Culture No growth at 2 days. Blood culture [[id number]] (Abnormal) Collected: 10/30/23 1255 Lab Status: Preliminary result Specimen: Blood from Foot, Left Updated: 11/02/23 0825 Blood Culture -- Coagulase negative Staphylococcus species isolated : two morphologies Interpretation of the importance of skin daphne such as Coagulase Negative Staph, Viridans Strep, Corynebacteria and other Gram Positive organisms from a single Blood Culture set requires clinical correlation. Gram Stain Anaerobic -- Growth detected in anaerobic bottle. Gram Positive Cocci in clusters seen Gram Stain Aerobic -- Growth detected in aerobic bottle. Gram Positive Cocci in clusters seen MRSA PCR Screen ([facility]/CGP/APD/NL) [[id number]] Collected: 10/29/23 0648 Lab Status: Final result Specimen: Nasopharyngeal Swab Updated: 10/29/23 1320 MRSA Result Negative MRSA Interp -- Methicillin-resistant Staphylococcus aureus (MRSA) is NOT DETECTED The MRSA target DNA sequences (mec and SCC) were not detected within the acceptable ranges using the Xpert MRSA NxG on the GeneXpert Dx System ([employer]). This suggests the absence of MRSA in the patient specimen submitted for testing. This test is cleared by the U.S. Food and Drug Administration for clinical use and its performance characteristics have been verified by the [facility] at [facility]. This result does not rule out the presence of any other organisms. Rare false negative results may occur if MRSA is present at low concentrations with much higher concentrations of other organisms including MRSE or S. aureus with an empty SCC cassette. Comment: [VERIFIED DATE]10.29.23 Verified By:Katherine Early (Electronic Signature) Blood culture [[id number]] Collected: 10/28/23 0922 Lab Status: Preliminary result Specimen: Blood from Foot, Left Updated: 11/01/23 1501 Blood Culture No growth at 4 days. Blood culture [[id number]] Collected: 10/28/23 0910 Lab Status: Preliminary result Specimen: Blood from Hand, Right Updated: 11/01/23 1501 Blood Culture No growth at 4 days. Blood culture [[id number]] Collected: 10/25/23 1050 Lab Status: Final result Specimen: Blood Updated: 10/30/23 1501 Blood Culture No growth at 5 days. Blood culture [[id number]] Collected: 10/25/23 1040 Lab Status: Final result Specimen: Blood Updated: 10/30/23 1501 Blood Culture No growth at 5 days. Urine culture Cystoscopic Urine [[id number]] (Abnormal) (Susceptibility) Collected: 10/25/23 0913 Lab Status: Final result Specimen: Cystoscopic Urine Updated: 10/28/23 0748 Urine Culture -- Greater than 50,000 cfu/mL Pseudomonas aeruginosa Greater than 50,000 cfu/mL Enterococcus faecalis Susceptibility Pseudomonas aeruginosa MICROSCAN METHOD Amikacin Sensitive Aztreonam Sensitive Cefepime Sensitive Ceftazidime Sensitive Ciprofloxacin Sensitive Levofloxacin Sensitive [1] Meropenem Sensitive Piperacillin/Tazobactam Sensitive Tobramycin Sensitive [1] Levofloxacin and Ciprofloxacin may not adequately treat infections in critically ill patients even when isolates test susceptible in the laboratory. Contact Infectious Disease before using in critically ill patients. Susceptibility Enterococcus faecalis VITEK 2 METHOD Ampicillin Sensitive Ciprofloxacin Resistant Levofloxacin Resistant Nitrofurantoin Sensitive Penicillin Sensitive Vancomycin Sensitive Urine culture [[id number]] (Abnormal) (Susceptibility) Collected: 10/24/232056 Lab Status: Final result Specimen: Urine Updated: 10/28/23 0804 Urine Culture -- Greater than 100,000 cfu/ml Proteus mirabilis Greater than 100,000 cfu/ml Pseudomonas aeruginosa Susceptibility Proteus mirabilis VITEK 2 METHOD Amikacin Sensitive Ampicillin + Sulbactam Resistant Aztreonam Sensitive Cefazolin Sensitive Cefepime Sensitive Ceftazidime Sensitive Ceftriaxone Sensitive Gentamicin Sensitive Levofloxacin Resistant [1] Meropenem Sensitive Nitrofurantoin Resistant Piperacillin/Tazobactam Sensitive Tetracycline Resistant Tobramycin Sensitive Trimethoprim/Sulfa Resistant [1] Levofloxacin and Ciprofloxacin may not adequately treat infections in critically ill patients even when isolates test susceptible in the laboratory. Contact Infectious Disease before using in critically ill patients. Susceptibility Pseudomonas aeruginosa MICROSCAN METHOD Amikacin Sensitive Aztreonam Sensitive Cefepime Sensitive Ceftazidime Sensitive Ciprofloxacin Resistant Levofloxacin Resistant [1] Meropenem Sensitive Piperacillin/Tazobactam Sensitive Tobramycin Sensitive [1] Levofloxacin and Ciprofloxacin may not adequately treat infections in critically ill patients even when isolates test susceptible in the laboratory. Contact Infectious Disease before using in critically ill patients. Blood culture [[id number]] (Abnormal) (Susceptibility) Collected: 10/24/232056 Lab Status: Final result Specimen: Blood Updated: 10/31/23 0742 Blood Culture -- Pseudomonas aeruginosa detected by PCR Isolate saved. If future testing is required, contact the Microbiology Line Maintenance Technician. Gram Stain Aerobic -- Growth detected in aerobic bottle. Gram Negative Rods seen Results called to and read back by Jose Dean Pseudomonas aeruginosa MICROSCAN METHOD Amikacin Sensitive Aztreonam Sensitive Cefepime Sensitive Ceftazidime Sensitive Ciprofloxacin Sensitive Levofloxacin Sensitive [1] Meropenem Sensitive Piperacillin/Tazobactam Sensitive Tobramycin Sensitive [1] Levofloxacin and Ciprofloxacin may not adequately treat infections in critically ill patients even when isolates test susceptible in the laboratory. Contact Infectious Disease before using in critically ill patients. A/P: Nighat Barrios is a 58 y.o. male now 8 Days Post-Op s/p right ureteral stent and bladder stone removal on 10/25 d/t pseudomonas bacteriemia, UTI. Overnight 10/28, patient had increased oxygen requirements from RA. CXR 10/28 showed concerns for fluid overload. He was upgraded to ICU for diuresis.CT/PE was obtained yesterday which was negative for PE however did reveal occlusive mucous pluggingfound in LLL bronchus with near total post-obstructive LLL collapse. CT abd/pelvis also obtained which did not reveal any renal abscesses. Ucx Pseudomonas/Enterococcus/Proteus, Bcx pseudomonas. Surveillance Bcx x 4 NGTD. ID curbsided 10/28: OPAT at discharge with limited PO abx options - in progress. He is off pressors and WBC is withinnormal limits. Zosyn per ID. Off Vanc now as MRSA nares negative. Care management engaged for safe discharge planning in regards to his living situation at [facility], relationship with his care takers, and assistance getting his motorized wheelchair in working condition. plans to coordinate where care givers can come in to hospitalTues (11/03) so they can see how abx pump work. Staff who work closely with abx pump won't be in until 11/03. ID reaching out to OPAT team about 4 hour home abx infusions. He will need FU URS/cystolitholapaxy for right 7mm UPJ stone, possibly right renal stones, residualbladder stones, which he is aware of. He will likely follow-up with his primary urologist for this.Called Dr. Molina's office and spoke w/ rehabilitation aide/scheduler 10/30. Awaiting call back 11/03. On 10/31 pt again required HFNC. CXR similar LLL collapse. RT continuing percussive therapy. Consulted ICU team to discuss if he is a candidate for bronchoscopy - can be considered, however recommended we reach out to interventional pulmonology - consulted with initial recs for hypertonic saline nebs (7%, can decrease to 3% if not tolerated), continue percussion. Will follow up final recommendations. Of note, patient was made DNR/DNI however patient is agreeable with intubation for a short amount of time. NEURO: home baclofen, divalproex, pregabalin, trazodone, hydropxyzine prn, lorazepam prn; tylenol and oxycodone prn for pain CV: HDS PULM: Encourage cough, deep breathing, percussive therapy with RT. HFNC PRN, wean as able - Duoneb - Mucomyst - Hypertonic saline nebs - awaiting ICU recs GI: home PPI : home mirabegron, chronic sPT FEN: carb control diet ENDO: SSI HEME: SQH ID: on Zosyn (10/26 - ) -Increased dosage to 4.5g 11/01/23 per ID - Cultures: - Ucx 10/25 & 10/24 with pseudomonas, proteus, and enterococcus - final - Bcx 10/24 with Pseudomonas - final - Bcx (2) 10/25 - NGTD - Bcx (2) 10/28 - NGTD - Bcx (2) 10/30 - NGTD & coag neg staph - OPAT order placed 10/31 PPX: home PPI, SQH, SCDs DISPO: Floor CODE: DNR/DNI however okay with intubation for short period of time -- Likely discharge the earliest next Friday 11/03 after caregivers come in to learn how abx pump works. Care givers would be the ones administering the abx at home. Plan discussed with Dr. Lopes, Urology attending. Adam Rapp MD 11/02/2023 [id number] * Maritza Tiwari RRT - 11/01/2023 9:00 PM EST Respiratory Therapy Heated Humidified High Flow INDICATIONS: High O2 requirement HIGH FLOW SETTINGS: Interface: High flow nasal cannula Flow: 40 L/min FiO2: 40 % VITAL SIGNS: HR: 96 RR: 20 SpO2: 96 % CURRENT MEDICATIONS: Nebulized Medications: 3% Hypertonic Saline, n Acetylcystine and Duo Neb Q 4 hours BREATH SOUNDS: coarse Last Chest X-ray: Impression LEFT lower lobe opacification due to some combination of consolidation, atelectasis and/or pleural effusion Electronically signed by: Didi Hernandes MD, [facility] ([phone]), at 11/01/2023 2:05 PM ASSESSMENT: Patient received on above noted settings. RN weaned to 4 lpm NC was tolerating well. 05:35 Patient had desaturation episode placed back on HFNC at 100% and 45 lpm CCS notified. Patienttook nebulizer's again at 05:35 but refused cough assist CCS aware. PLAN: Will continue to monitor and support MARITZA TIWARI RRT * Rosmery Daly MD - 11/01/2023 5:35 PM EST ID Progress Note CC: Pseudomonas BSI, urosepsis (Urine culture also with Proteus and enterococcus) 24h: New O2 requirement, high flow 40L, undergoing eval. Remains afebrile. Subj: wants to go home. Feels no different. PE Vitals: 11/01/23 1343 11/01/23 1400 11/01/23 1600 11/01/23 1616 BP: 96/85 (!) 163/102 (!) 163/103 BP Location (NBP): Left arm Left arm Patient Position: Lying Lying Pulse: Resp: 20 Temp: 37 ??C (98.6 ??F) 37 ??C (98.6 ??F) TempSrc: Oral Oral SpO2: 93% 94% 98% 95% Weight: Height: GEN: NAD IMAGING CXR 11/01 IMPRESSION LEFT lower lobe opacification due to some combination of consolidation, atelectasis and/or pleural effusion (seen previously) A/P 58yo man with paraplegia (secondary to cervical spine injury s/p mechanical fall off of roof on 10/2020), diverting colostomy, Chronic decubitus ulcer, chronic suprapubic tube, nephrolithiasis currently being managed for septic shock secondary to polymicrobial UTI with right ureteral obstruction and hydronephrosis s/p right ureteral stenting with 1 renal stone removed, Pseudomonas bacteremia. Fevers resolved. From standpoint of UTI and bacteremia, could set a course. However, has decompensated from respiratory standpoint in last 24hr, unclear next steps, team considering bronchoscopy. Previously had what was considered likely mucus plugging causing LLL collapse/opacification and resolved quickly in terms of hypoxia, now w/LLL findings again on CXR, unclear if new process. -If bronch performed please send BAL for bacterial cultures -Continue pip-tazo. As discussed this AM please increase to 4.5g IV q8h -Would not expand antibiotics for ?PNA at this time -Working on setting up OPAT, likely plan for 2 weeks, possible extension depending on plan for retained stone Rosmery Daly MD ID * Gio, Aguila Lopez RCP - 11/01/2023 5:26 PM EST Respiratory Therapy Heated Humidified High Flow INDICATIONS: High O2 requirement HIGH FLOW SETTINGS: Interface: High flow nasal cannula Flow: 40 L/min FiO2: 40 % VITAL SIGNS: HR: 96 RR: 20 SpO2: 95 % SKIN ASSESSMENT: CURRENT MEDICATIONS: , Nebulized Medications: n Acetylcystine, Albuterol & Ipratroprium BREATH SOUNDS: course/ dim Last Chest X-ray: Results for orders placed during the hospital encounter of 10/25/23 XR Chest One View Narrative EXAMINATION: XR CHEST ONE VIEW CLINICAL HISTORY: hypotensive w/ increased Fi02 TECHNIQUE: 1 view of the chest COMPARISON: 10/31/2023 FINDINGS: The LEFT lower lobe continues to be opacified as on multiple prior studies. There is likely additional small LEFT pleural effusion. The remainder lungs are clear. No pneumothorax or pulmonary edema. Left-sided indwelling catheter has its tip in the superior vena cava. Heart size is normal Impression LEFT lower lobe opacification due to some combination of consolidation, atelectasis and/or pleural effusion Thank you for letting us participate in the care of this patient. If you are a health care provider and have any questions regarding this report, please contact the number below. For patients who have questions please contact the health career law clerk that requested your imaging first. Electronically signed by: Didi Hrenandes MD, [facility] ([phone]), at 11/01/2023 2:05 PM ASSESSMENT: Pt very course, unable to mobilize secretions PLAN: Aggressive pulm toilet CA/Percussor BLB Aguila Powers RCP * Krystal Ortiz MD - 11/01/2023 2:05 PM EST Brief interval progress note Paged to patient bedside for hypotension to 80s/44 with accounts of seeing stars as well as increase in FiO2 from 30-50. When I arrived he was actively receiving a nebulizer treatment. My initial differential included PTX given increase in oxygenation and hypotension laboratory but sent him to the allergy. As such I ordered a stat chest x-ray which did not show any evidence of PTX and improved aeration of the left lower lung. As such I wanted my to referential to includes septic shock possibly due to incomplete coverage with Zosyn, hypokalemia given that he is -5 L this admission as well as some cardiogenic component. As such plan to obtain CBC, BMP, mag, Phos, troponins and blood cultures as well as obtain an EKG to ensure no CO. Additionally given that his TTE earlier this admission showed normal EF, we will plan to bolus 1L LR. Following completion of the bolus his pressures improved to 115/64. Will continue to closely monitor and follow-up labs. Krystal Ortiz MD * Monty Sequeira PA - 11/01/2023 9:59 AM EST Images from the original note were not included. Urology Progress Note Patient: Nighat Barrios : 1965 Room: [place] [address] Admit date: 10/25/2023 Attending: Yessi Lopes MD ID: Nighat Barrios is a 58 y.o. male with a history of paraplegia with indwelling SPT, prior nephrolithiasis with reported LL treatment 7 Days Post-Op s/p ureteral stent and bladder stone removal for urosepsis Subjective/24hr Events: - Back on 35L HFNC - Chest x ray w/ similar LLL collapse - Code status updated to DNR/DNI however patient agreeable to short term intubation - Afebrile - WBC wnl - Cr wnl Current Medications: piperacillin-tazobactam 4.5 g Intravenous Q8H pantoprazole EC 40 mg Oral Daily ipratropium-albuteroL 3 mL Nebulization Q4H acetylcysteine 600 mg Inhalation Q4H melatonin 6 mg Oral Nightly divalproex ER 500 mg Oral Daily multivitamin with minerals 1 tablet Oral Daily tamsulosin 0.4 mg Oral Daily sodium chloride 0.9 % (flush) 5 mL Intravenous BID heparin (porcine) 5,000 Units Subcutaneous Q8H ALDEN baclofen 20 mg Oral TID mirabegron ER 25 mg Oral Daily pregabalin 25 mg Oral TID traZODone 50 mg Oral Nightly docusate sodium 100 mg Oral TID senna 34.4 mg Oral Nightly Objective: Last value Range last 24hrs Temperature Temp: 37.2 ??C (99 ??F) Temp: [36.7 ??C (98.1 ??F)-37.2 ??C (99 ??F)] Heart Rate Heart Rate: 96 Heart Rate: -- Blood Pressure BP: 144/88 BP: (104-170)/(62-121) Respiratory Rate Resp: 20 Resp: [18-28] SpO2 SpO2: 97 % SpO2: [72 %-99 %] Intake/Output Summary (Last 24 hours) at 11/01/2023 0959 Last data filed at 11/01/2023 0900 Gross per 24 hour Intake 1085.9 ml Output 2150 ml Net -1064.1 ml Physical Exam: Gen: NAD, awake/alert CV: regular rate Pulm: No stridor or audible wheeze, breathing 35L HFNC Abd: soft, ND : SPT with CYU Ext: well perfused Labs: Recent Labs 11/01/23 0028 10/30/23 0007 WBC 8.2 7.5 HGB 9.2* 9.4* HCT 28.0* 28.1* PLATELET 267 188 Recent Labs 11/01/23 0028 10/31/23 0005 10/30/23 0007 NA 143 -- 141 K 4.5 -- 4.0 CL 107 -- 104 CO2 30 -- 28 BUN 9* -- 8* CREATININE 0.67* -- 0.74* GLUCOSE 105 -- 117 CALCIUM 8.2* -- 7.9* MAGNESIUM 0.86 0.77 0.86 PHOS 3.6 3.3 1.9* No results found for: SPGRAVITYUA, PHUADIP, PROTEINUADIP, GLUCOSEU, KETONESUA, UROBILIUADIP, BLOODUADIP, NITRATEUA, LEUKOESTERUA, WBCUA, BILIRUBINUA Imaging: XR Chest One View Narrative: EXAMINATION: XR CHEST ONE VIEW CLINICAL HISTORY: desaturations TECHNIQUE: 1 view of the chest COMPARISON: CT 10/28/2023, plain radiographs 10/29/2023 FINDINGS: Left lower lobe collapse similar to previous imaging. Remainder of the left lung and the right lung are well-inflated. No new airspace process. Access medication port in the chest. No change in appropriate catheter position. Cardiac and mediastinal contours are normal. No central pulmonary vascular congestion. Partially visualized cervical fusion hardware grossly normal. No acute bone abnormality. Impression: Left lower lobe collapse similar to previous imaging. No acute cardiopulmonary process. Thank you for letting us participate in the care of this patient. If you are a health care provider and have any questions regarding this report, please contact the number below. For patients who have questions please contact the health career law clerk that requested your imaging first. Electronically signed by: Jose Joaquin MD, [facility] ([phone]), at 10/31/2023 8:38 PM - CT abdomen pelvis 10/28/23: IMPRESSION 1. Interval placement of a right-sided double-J stent within the ureter, expected appearance. 2. Right-sided nephrolithiasis with no hydronephrosis. 3. 2 small wedge-shaped regions of hypoattenuation within the right renal parenchyma are in retrospect visible on the previous CT, though highly obscured by motion artifact on that exam. This may represent focal nephronia with pyelonephritis. There is no intrarenal or pararenal abscess. 4. Bladder is decompressed which limits evaluation. However, there is probably a degree of circumferential wall thickening, most pronounced at the left lateral margin. Consider cystitis. - CT PE 10/28/23: IMPRESSION 1. No pulmonary thromboembolism 2. Occlusive mucous plugging in the left lower lobe bronchus with near total postobstructive left lower lobe collapse Micro: Microbiology Results (Last 30 days) Procedure Component Value Units Date/Time Blood culture [[id number]] Collected: 10/30/23 1300 Lab Status: Preliminary result Specimen: Blood from Hand, Right Updated: 10/31/23 1501 Blood Culture No growth at 1 day. Blood culture [[id number]] (Abnormal) Collected: 10/30/23 1255 Lab Status: Preliminary result Specimen: Blood from Foot, Left Updated: 10/31/23 2335 Blood Culture -- Coagulase negative Staphylococcus species detected by PCR Interpretation of the importance of skin daphne such as Coagulase Negative Staph, Viridans Strep, Corynebacteria and other Gram Positive organisms from a single Blood Culture set requires clinical correlation. Gram Stain Anaerobic -- Growth detected in anaerobic bottle. Gram Positive Cocci in clusters seen Gram Stain Aerobic -- Growth detected in aerobic bottle. Gram Positive Cocci in clusters seen MRSA PCR Screen ([facility]/CGP/APD/NL) [[id number]] Collected: 10/29/23 0648 Lab Status: Final result Specimen: Nasopharyngeal Swab Updated: 10/29/23 1320 MRSA Result Negative MRSA Interp -- Methicillin-resistant Staphylococcus aureus (MRSA) is NOT DETECTED The MRSA target DNA sequences (mec and SCC) were not detected within the acceptable ranges using the Xpert MRSA NxG on the GeneXpert Dx System ([employer]). This suggests the absence of MRSA in the patient specimen submitted for testing. This test is cleared by the U.S. Food and Drug Administration for clinical use and its performance characteristics have been verified by the [facility] [employer] [facility] [employer] [facility] at [facility]. This result does not rule out the presence of any other organisms. Rare false negative results may occur if MRSA is present at low concentrations with much higher concentrations of other organisms including MRSE or S. aureus with an empty SCC cassette. Comment: [VERIFIED DATE]10.29.23 Verified By:Katherine Early (Electronic Signature) Blood culture [[id number]] Collected: 10/28/23 0922 Lab Status: Preliminary result Specimen: Blood from Foot, Left Updated: 10/31/23 1501 Blood Culture No growth at 3 days. Blood culture [[id number]] Collected: 10/28/23 0910 Lab Status: Preliminary result Specimen: Blood from Hand, Right Updated: 10/31/23 1501 Blood Culture No growth at 3 days. Blood culture [[id number]] Collected: 10/25/23 1050 Lab Status: Final result Specimen: Blood Updated: 10/30/23 1501 Blood Culture No growth at 5 days. Blood culture [[id number]] Collected: 10/25/23 1040 Lab Status: Final result Specimen: Blood Updated: 10/30/23 1501 Blood Culture No growth at 5 days. Urine culture Cystoscopic Urine [[id number]] (Abnormal) (Susceptibility) Collected: 10/25/23 0913 Lab Status: Final result Specimen: Cystoscopic Urine Updated: 10/28/23 0748 Urine Culture -- Greater than 50,000 cfu/mL Pseudomonas aeruginosa Greater than 50,000 cfu/mL Enterococcus faecalis Susceptibility Pseudomonas aeruginosa MICROSCAN METHOD Amikacin Sensitive Aztreonam Sensitive Cefepime Sensitive Ceftazidime Sensitive Ciprofloxacin Sensitive Levofloxacin Sensitive [1] Meropenem Sensitive Piperacillin/Tazobactam Sensitive Tobramycin Sensitive [1] Levofloxacin and Ciprofloxacin may not adequately treat infections in critically ill patients even when isolates test susceptible in the laboratory. Contact Infectious Disease before using in critically ill patients. Susceptibility Enterococcus faecalis VITEK 2 METHOD Ampicillin Sensitive Ciprofloxacin Resistant Levofloxacin Resistant Nitrofurantoin Sensitive Penicillin Sensitive Vancomycin Sensitive Urine culture [[id number]] (Abnormal) (Susceptibility) Collected: 10/24/232056 Lab Status: Final result Specimen: Urine Updated: 10/28/23 0804 Urine Culture -- Greater than 100,000 cfu/ml Proteus mirabilis Greater than 100,000 cfu/ml Pseudomonas aeruginosa Susceptibility Proteus mirabilis VITEK 2 METHOD Amikacin Sensitive Ampicillin + Sulbactam Resistant Aztreonam Sensitive Cefazolin Sensitive Cefepime Sensitive Ceftazidime Sensitive Ceftriaxone Sensitive Gentamicin Sensitive Levofloxacin Resistant [1] Meropenem Sensitive Nitrofurantoin Resistant Piperacillin/Tazobactam Sensitive Tetracycline Resistant Tobramycin Sensitive Trimethoprim/Sulfa Resistant [1] Levofloxacin and Ciprofloxacin may not adequately treat infections in critically ill patients even when isolates test susceptible in the laboratory. Contact Infectious Disease before using in critically ill patients. Susceptibility Pseudomonas aeruginosa MICROSCAN METHOD Amikacin Sensitive Aztreonam Sensitive Cefepime Sensitive Ceftazidime Sensitive Ciprofloxacin Resistant Levofloxacin Resistant [1] Meropenem Sensitive Piperacillin/Tazobactam Sensitive Tobramycin Sensitive [1] Levofloxacin and Ciprofloxacin may not adequately treat infections in critically ill patients even when isolates test susceptible in the laboratory. Contact Infectious Disease before using in critically ill patients. Blood culture [[id number]] (Abnormal) (Susceptibility) Collected: 10/24/232056 Lab Status: Final result Specimen: Blood Updated: 10/31/23 3295 Blood Culture -- Pseudomonas aeruginosa detected by PCR Isolate saved. If future testing is required, contact the Microbiology Line Maintenance Technician. Gram Stain Aerobic -- Growth detected in aerobic bottle. Gram Negative Rods seen Results called to and read back by Jose Dean Pseudomonas aeruginosa MICROSCAN METHOD Amikacin Sensitive Aztreonam Sensitive Cefepime Sensitive Ceftazidime Sensitive Ciprofloxacin Sensitive Levofloxacin Sensitive [1] Meropenem Sensitive Piperacillin/Tazobactam Sensitive Tobramycin Sensitive [1] Levofloxacin and Ciprofloxacin may not adequately treat infections in critically ill patients even when isolates test susceptible in the laboratory. Contact Infectious Disease before using in critically ill patients. A/P: Nighat Barrios is a 58 y.o. male now 7 Days Post-Op s/p right ureteral stent and bladder stone removal on 10/25 d/t pseudomonas bacteriemia, UTI. Overnight 10/28, patient had increased oxygen requirements from RA. CXR 10/28 showed concerns for fluid overload. He was upgraded to ICU for diuresis.CT/PE was obtained yesterday which was negative for PE however did reveal occlusive mucous pluggingfound in LLL bronchus with near total post-obstructive LLL collapse. CT abd/pelvis also obtained which did not reveal any renal abscesses. Ucx with Pseudomonas/Enterococcus/Proteus (final reports back), Bcx with pseudomonas. Since then new bcx x 4 NGTD. ID curbsided 10/28 who recommend OPAT at discharge with limited PO abx options. Willset up OPAT today. He is off pressor support and WBC is within normal limits. Continues to have intermittent fevers. We will continue Zosyn for now. Off Vanc now as MRSA nares negative. ID rec repeatblood cx yesterday. Cipro and Augmentin were added 10/30 however ID asked to stop these abxs and start Zosyn again. OPAT ordered. Care management engaged for safe discharge planning in regards to his living situation at the [facility], relationship with his care takers, and assistance getting his motorized wheelchair in working condition. CM plans to coordinate where care givers can come in to hospitalTues (11/03) so they can see how abx pump work. Staff who work closely with abx pump won't be in until 11/03. ID reaching out to OPAT team about 4 hour home abx infusions. He will need FU URS/cystolitholapaxy for right 7mm UPJ stone, possibly right renal stones, residualbladder stones, which he is aware of. He will likely follow-up with his primary urologist for this.Called Dr. Molina's office and spoke w/ rehabilitation aide/scheduler 10/30. Awaiting call back 11/03. On 10/31 pt again required HFNC. CXR similar LLL collapse. Called ICU team to discuss if he is a candidate for bronchoscopy at this time, appreciate recs. A few days prior, LLL mucus plug resolved w/pulm toileting in the ICU. Of note, patient was made DNR/DNI however patient is agreeable with intubation for a short amount of time. NEURO: home baclofen, divalproex, pregabalin, trazodone, hydropxyzine prn, lorazepam prn; tylenol and oxycodone prn for pain CV: HDS PULM: Encourage cough, deep breathing -Duoneb - Mucomyst - awaiting ICU recs GI: home PPI : home mirabegron, chronic sPT FEN: carb control diet ENDO: SSI HEME: SQH ID: on Zosyn (10/26 - ) -Increased dosage to 4.5g today per ID - Cultures: - Ucx 10/25 & 10/24 with pseudomonas, proteus, and enterococcus - final - Bcx 10/24 with Pseudomonas - final - Bcx (2) 10/25 - NGTD - Bcx (2) 10/28 - NGTD - Bcx (2) 10/30 - NGTD & coag neg staph - OPAT order placed 10/31 PPX: home PPI, SQH, SCDs DISPO: Floor CODE: DNR/DNI however okay with intubation for short period of time -- Likely discharge the earliest next Friday 11/03 after caregivers come in to learn how abx pump works. Care givers would be the ones administering the abx at home. Plan discussed with Dr. Lopes, Urology attending. KAN Ornelas 11/01/2023 [id number] * Maritza Tiwari, RN MENTAL HEALTH - 10/31/2023 9:15 PM EST Respiratory Therapy Heated Humidified High Flow INDICATIONS: High O2 requirement and Heat/Humidification HIGH FLOW SETTINGS: Interface: High flow nasal cannula Flow: 40 L/min FiO2: (S) 50 % VITAL SIGNS: HR: 96 RR: 20 SpO2: 97 % SKIN ASSESSMENT: WDL CURRENT MEDICATIONS: Nebulized Medications: n Acetylcystine and Duo Neb Q 4 hours BREATH SOUNDS: coarse Last Chest X-ray: FINDINGS: Left lower lobe collapse similar to previous imaging. Remainder of the left lung and the right lung are well-inflated. No new airspace process. Access medication port in the chest. No change in appropriate catheter position. Cardiac and mediastinal contours are normal. No central pulmonary vascular congestion. Partially visualized cervical fusion hardware grossly normal. No acute bone abnormality. Impression Left lower lobe collapse similar to previous imaging. No acute cardiopulmonary process. Electronically signed by: Jose Joaquin MD, [facility] ([phone]), at 10/31/2023 8:38 PM ASSESSMENT: 18:58 Patient had desaturation to 85% sustained on 6 lpm NC. 19:10 Placed on HFNC at 60% and 40 lpm. RN and CCS aware. Patient compliant with nebulizer treatments but refused cough assist tonight. 2000 FIO2 weaned to 50% tolerated well. 00:45 FIO2 weaned 40% and 35 lpm PLAN: Continue HFNC for humidity and increased oxygen requirements. Will wean FIO2 as tolerated. MARITZA TIWARI, RN MENTAL HEALTH * Lauri Jovel RCP - 10/31/2023 7:31 PM EST Nighat Barrios is a 58 y.o. male with a history of paraplegia with indwelling SPT, prior nephrolithiasis with reported LL treatment 4 Days Post-Op s/p ureteral stent and bladder stone removal for urosepsis. Pt saturations falling below 80%. Pt has weak cough. Pt was offered options for O2 therapy after describing in detail the possibilities if his hypoxia goes untreated. He was amicable to HFNC at this time. This will be good as we can provide nebulizer therapy also through the device less invasively. He is refusing CPT, Cough assist agreed to be turned on his opposite side. Lauri Jovel RN MENTAL HEALTH * Vanesa Rojas RN - 10/31/2023 6:19 PM EST @1806 pt desat to 70s with good pleth, O2 applied and quickly uptitrated to 6L nC. Pt had just received nebulizer tx by RT. Pt agitated and refusing help, refusing to deep breathe, refusing to be touched and refusing NRB to be applied. After 11 minutes pt satting low 90s on 6L NC. Pt became tearfulthat he will never get out of here. Lung sounds similar to initial morning assessment. Team pagedwith concern for O2 need. No pain reported. MD to beside. * Ester Edwards PA - 10/31/2023 12:01 PM EST Images from the original note were not included. Urology Progress Note Patient: Nighat Barrios : 1965 Room: [address] Admit date: 10/25/2023 Attending: Yessi Lopes MD ID: Nighat Barrios is a 58 y.o. male with a history of paraplegia with indwelling SPT, prior nephrolithiasis with reported LL treatment 6 Days Post-Op s/p ureteral stent and bladder stone removal for urosepsis Subjective/24hr Events: - on 1L NC, he is refusing to us ICS - Floor status - Code status updated to DNR/DNI however patient now agreeable to short term intubation - Afebrile since yesterday AM - WBC wnl - Cr wnl - Abx switched to Augmentin and Cipro yesterday however these were dc'ed and Zosyn added back per ID Current Medications: piperacillin-tazobactam 3.375 g Intravenous Q8H pantoprazole EC 40 mg Oral Daily ipratropium-albuteroL 3 mL Nebulization Q4H acetylcysteine 600 mg Inhalation Q4H melatonin 6 mg Oral Nightly divalproex ER 500 mg Oral Daily multivitamin with minerals 1 tablet Oral Daily tamsulosin 0.4 mg Oral Daily sodium chloride 0.9 % (flush) 5 mL Intravenous BID heparin (porcine) 5,000 Units Subcutaneous Q8H [place] baclofen 20 mg Oral TID mirabegron ER 25 mg Oral Daily pregabalin 25 mg Oral TID traZODone 50 mg Oral Nightly docusate sodium 100 mg Oral TID senna 34.4 mg Oral Nightly Objective: Last value Range last 24hrs Temperature Temp: 36.9 ??C (98.4 ??F) Temp: [36.8 ??C (98.2 ??F)-37.6 ??C (99.7 ??F)] Heart Rate Heart Rate: 96 Heart Rate: [96-98] Blood Pressure BP: 116/77 BP: (99-154)/(57-107) Respiratory Rate Resp: 18 Resp: [18-22] SpO2 SpO2: 96 % SpO2: [85 %-97 %] Intake/Output Summary (Last 24 hours) at 10/31/2023 1201 Last data filed at 10/31/2023 1100 Gross per 24 hour Intake 1881 ml Output 2550 ml Net -669 ml Physical Exam: Gen: NAD, awake/alert CV: regular rate Pulm: No stridor or audible wheeze, breathing comfortably 1 L NC Abd: soft, ND : SPT with CYU Ext: warm, well perfused Labs: Recent Labs 10/30/23 0007 10/29/23 0028 WBC 7.5 7.4 HGB 9.4* 9.4* HCT 28.1* 28.2* PLATELET 188 150 Recent Labs 10/31/23 0005 10/30/23 0007 10/29/23 0028 NA -- 141 141 K -- 4.0 3.8 CL -- 104 104 CO2 -- BUN -- 8* 10 CREATININE -- 0.74* 0.76* GLUCOSE -- 117 130 CALCIUM -- 7.9* 8.2* MAGNESIUM 0.77 0.86 0.60* PHOS 3.3 1.9* 2.3* No results found for: SPGRAVITYUA, PHUADIP, PROTEINUADIP, GLUCOSEU, KETONESUA, UROBILIUADIP, BLOODUADIP, NITRATEUA, LEUKOESTERUA, WBCUA, BILIRUBINUA Imaging: SCAN DOC: TELEMETRY STRIPS Ordered by an unspecified provider. XR Chest One View Narrative: EXAMINATION: XR CHEST ONE VIEW CLINICAL HISTORY: surveil LLL mucus plus TECHNIQUE: 1 view of the chest . 2 images COMPARISON: Chest radiograph and CT 10/28/2023. FINDINGS: Examination is limited by the right upper extremity obscuring part of the [id number]. Left chest wall subcutaneous port with tip at the superior cavoatrial junction. Similar-appearing left basilar opacity. No pneumothorax. No pleural effusion. Unchanged cardiomediastinal contours. Partially visualized cervical fusion hardware. Impression: Similar appearing left basilar opacity. Preliminary report signed by: Michael Freeman MD at 10/29/2023 6:59 AM I have personally reviewed the image(s) and the resident's interpretation and agree with the findings, Caleb Branch MD at 10/29/2023 7:15 AM Thank you for letting us participate in the care of this patient. If you are a health care provider and have any questions regarding this report, please contact the number below. For patients who have questions please contact the health career law clerk that requested your imaging first. Electronically signed by: Caleb Branch MD, [facility] ([phone]), at 10/29/2023 7:15 AM - CT abdomen pelvis 10/28/23: IMPRESSION 1. Interval placement of a right-sided double-J stent within the ureter, expected appearance. 2. Right-sided nephrolithiasis with no hydronephrosis. 3. 2 small wedge-shaped regions of hypoattenuation within the right renal parenchyma are in retrospect visible on the previous CT, though highly obscured by motion artifact on that exam. This may represent focal nephronia with pyelonephritis. There is no intrarenal or pararenal abscess. 4. Bladder is decompressed which limits evaluation. However, there is probably a degree of circumferential wall thickening, most pronounced at the left lateral margin. Consider cystitis. - CT PE 10/28/23: IMPRESSION 1. No pulmonary thromboembolism 2. Occlusive mucous plugging in the left lower lobe bronchus with near total postobstructive left lower lobe collapse Micro: Microbiology Results (Last 30 days) Procedure Component Value Units Date/Time Blood culture [[id number]] (Abnormal) Collected: 10/30/23 1255 Lab Status: Preliminary result Specimen: Blood from Foot, Left Updated: 10/31/23 0757 Blood Culture -- Coagulase negative Staphylococcus species detected by PCR Interpretation of the importance of skin daphne such as Coagulase Negative Staph, Viridans Strep, Corynebacteria and other Gram Positive organisms from a single Blood Culture set requires clinical correlation. Gram Stain Aerobic -- Growth detected in aerobic bottle. Gram Positive Cocci in clusters seen MRSA PCR Screen ([facility]/CGP/APD/NLH) [[id number]] Collected: 10/29/23 0666 Lab Status: Final result Specimen: Nasopharyngeal Swab Updated: 10/29/23 1320 MRSA Result Negative MRSA Interp -- Methicillin-resistant Staphylococcus aureus (MRSA) is NOT DETECTED The MRSA target DNA sequences (mec and SCC) were not detected within the acceptable ranges using the Xpert MRSA NxG on the GeneXpert Dx System ([employer]). This suggests the absence of MRSA in the patient specimen submitted for testing. This test is cleared by the U.S. Food and Drug Administration for clinical use and its performance characteristics have been verified by the [facility] [employer] [facility] [employer] [facility] at [facility]. This result does not rule out the presence of any other organisms. Rare false negative results may occur if MRSA is present at low concentrations with much higher concentrations of other organisms including MRSE or S. aureus with an empty SCC cassette. Comment: [VERIFIED DATE]10.29.23 Verified By:Katherine Early (Electronic Signature) Blood culture [[id number]] Collected: 10/28/23 0922 Lab Status: Preliminary result Specimen: Blood from Foot, Left Updated: 10/30/23 1501 Blood Culture No growth at 2 days. Blood culture [[id number]] Collected: 10/28/23 0910 Lab Status: Preliminary result Specimen: Blood from Hand, Right Updated: 10/30/23 1501 Blood Culture No growth at 2 days. Blood culture [[id number]] Collected: 10/25/23 1050 Lab Status: Final result Specimen: Blood Updated: 10/30/23 1501 Blood Culture No growth at 5 days. Blood culture [[id number]] Collected: 10/25/23 1040 Lab Status: Final result Specimen: Blood Updated: 10/30/23 1501 Blood Culture No growth at 5 days. Urine culture Cystoscopic Urine [[id number]] (Abnormal) (Susceptibility) Collected: 10/25/23 0913 Lab Status: Final result Specimen: Cystoscopic Urine Updated: 10/28/23 0748 Urine Culture -- Greater than 50,000 cfu/mL Pseudomonas aeruginosa Greater than 50,000 cfu/mL Enterococcus faecalis Susceptibility Pseudomonas aeruginosa MICROSCAN METHOD Amikacin Sensitive Aztreonam Sensitive Cefepime Sensitive Ceftazidime Sensitive Ciprofloxacin Sensitive Levofloxacin Sensitive [1] Meropenem Sensitive Piperacillin/Tazobactam Sensitive Tobramycin Sensitive [1] Levofloxacin and Ciprofloxacin may not adequately treat infections in critically ill patients even when isolates test susceptible in the laboratory. Contact Infectious Disease before using in critically ill patients. Susceptibility Enterococcus faecalis VITEK 2 METHOD Ampicillin Sensitive Ciprofloxacin Resistant Levofloxacin Resistant Nitrofurantoin Sensitive Penicillin Sensitive Vancomycin Sensitive Urine culture [[id number]] (Abnormal) (Susceptibility) Collected: 10/24/232056 Lab Status: Final result Specimen: Urine Updated: 10/28/23 0804 Urine Culture -- Greater than 100,000 cfu/ml Proteus mirabilis Greater than 100,000 cfu/ml Pseudomonas aeruginosa Susceptibility Proteus mirabilis VITEK 2 METHOD Amikacin Sensitive Ampicillin + Sulbactam Resistant Aztreonam Sensitive Cefazolin Sensitive Cefepime Sensitive Ceftazidime Sensitive Ceftriaxone Sensitive Gentamicin Sensitive Levofloxacin Resistant [1] Meropenem Sensitive Nitrofurantoin Resistant Piperacillin/Tazobactam Sensitive Tetracycline Resistant Tobramycin Sensitive Trimethoprim/Sulfa Resistant [1] Levofloxacin and Ciprofloxacin may not adequately treat infections in critically ill patients even when isolates test susceptible in the laboratory. Contact Infectious Disease before using in critically ill patients. Susceptibility Pseudomonas aeruginosa MICROSCAN METHOD Amikacin Sensitive Aztreonam Sensitive Cefepime Sensitive Ceftazidime Sensitive Ciprofloxacin Resistant Levofloxacin Resistant [1] Meropenem Sensitive Piperacillin/Tazobactam Sensitive Tobramycin Sensitive [1] Levofloxacin and Ciprofloxacin may not adequately treat infections in critically ill patients even when isolates test susceptible in the laboratory. Contact Infectious Disease before using in critically ill patients. Blood culture [[id number]] (Abnormal) (Susceptibility) Collected: 10/24/232056 Lab Status: Final result Specimen: Blood Updated: 10/31/23733 Blood Culture -- Pseudomonas aeruginosa detected by PCR Isolate saved. If future testing is required, contact the Microbiology Line Maintenance Technician. Gram Stain Aerobic -- Growth detected in aerobic bottle. Gram Negative Rods seen Results called to and read back by Jose Dean Pseudomonas aeruginosa MICROSCAN METHOD Amikacin Sensitive Aztreonam Sensitive Cefepime Sensitive Ceftazidime Sensitive Ciprofloxacin Sensitive Levofloxacin Sensitive [1] Meropenem Sensitive Piperacillin/Tazobactam Sensitive Tobramycin Sensitive [1] Levofloxacin and Ciprofloxacin may not adequately treat infections in critically ill patients even when isolates test susceptible in the laboratory. Contact Infectious Disease before using in critically ill patients. A/P: Nighat Barrios is a 58 y.o. male now 6 Days Post-Op s/p right ureteral stent and bladder stone removal on 10/25 d/t pseudomonas bacteriemia, UTI. Overnight 10/28, patient had increased oxygen requirements from RA. CXR 10/28 showed concerns for fluid overload. He was upgraded to ICU for diuresis.CT/PE was obtained yesterday which was negative for PE however did reveal occlusive mucous pluggingfound in LLL bronchus with near total post-obstructive LLL collapse. CT abd/pelvis also obtained which did not reveal any renal abscesses. Ucx with Pseudomonas/Enterococcus/Proteus (final reports back), Bcx with pseudomonas. Since then new bcx x 4 NGTD. ID curbsided 10/28 who recommend OPAT at discharge with limited PO abx options. Willset up OPAT today. He is off pressor support and WBC is within normal limits. Continues to have intermittent fevers. We will continue Zosyn for now. Off Vanc now as MRSA nares negative. ID rec repeatblood cx yesterday. Cipro and Augmentin were added yesterday however ID asked to stop these abxs and start Zosyn again. OPAT ordered today. Care management engaged for safe discharge planning in regards to his living situation at the [facility], relationship with his care takers, and assistance getting his motorized wheelchair in working condition. CM plans to coordinate where care givers can come in to hospitalTues (11/03) so they can see how abx pump work. Staff who work closely with abx pump won't be in until 11/03 He will need FU URS/cystolitholapaxy for right 7mm UPJ stone, possibly right renal stones, residualbladder stones, which he is aware of. He will likely follow-up with his primary urologist for this.Called Dr. Molina's office and spoke w/ rehabilitation aide/scheduler 10/30 however did not receive call back. Of note, patient was made DNR/DNI however patient is agreeable with intubation for a short amount of time. NEURO: home baclofen, divalproex, pregabalin, trazodone, hydropxyzine prn, lorazepam prn; tylenol and oxycodone prn for pain CV: HDS PULM: Encourage cough, deep breathing -Duoneb GI: home PPI : home mirabegron, chronic sPT FEN: carb control diet ENDO: SSI HEME: SQH ID: on Zosyn (10/26 - ) - Cultures: - Ucx 10/25 & 10/24 with pseudomonas, proteus, and enterococcus - final - Bcx 10/24 with Pseudomonas - final - Bcx (2) 10/25 - NGTD - Bcx (2) 10/28 - NGTD - Bcx (2) 10/30 - NGTD & coag neg staph - OPAT order placed 10/31 PPX: home PPI, SQH, SCDs DISPO: Floor CODE: DNR/DNI however okay with intubation for short period of time -- Likely discharge the earliest next Friday 11/03 after caregivers come in to learn how abx pump works. Care givers would be the ones administering the abx at home. Plan discussed with Dr. Lopes, Urology attending. KAN Monaco 10/31/2023 [id number] * Rosmery Daly MD - 10/31/2023 11:37 AM EST ID Progress Note Chart reviewed. Now afebrile >24hr. WBC normalized. Blood culture from 10/30 1 bottles with CoNS. Hemodynamically stable. However, patient's pip-tazo was stopped and he has been started on amoxicillin- clavulanate and ciprofloxacin. On review of culture data, his blood Pseudomonas isolate is indeed susceptible to quinolones, but 1of his urine isolates, presumed source of infection, is not, and therefore I do not think that ciprofloxacin is the safest choice. We can see heterogenous resistance and our GENA's in the micro lab are not updated for fluoroquinolones. Suspect CoNS in blood culture from 10/30 is a contaminant and not true infection. Recs: -Restart pip-tazo 3.375g IV q8h -Stop ciprofloxacin and amox-clav -We plan at least a 14 day duration from 10/25. Given he has a retained stone, we may extend this depending on the plan for removal, which is pending per Urology. -Will place an OPAT order in prep for team's anticipated discharge on 11/01, as long as remains afebrile until then -Port already in place, therefore do not need PICC Rosmery Daly MD ID I spent a total of 25 minutes on the date of service on the chart review, clinical decision making,documentation, and coordination of care. * Lauri Jovel RCP - 10/31/2023 6:30 AM EST Nighat Barrios is a 58 y.o. male with a history of paraplegia with indwelling SPT, prior nephrolithiasis with reported LL treatment 4 Days Post-Op s/p ureteral stent and bladder stone removal for urosepsis Re: Providers wishes for Resp medication and aggressive pulm toilet. The pt was being seen for nebulizer therapy 10/30-10/31. The pt was offered low flow o2 via HFNC through the night in an effort to get him to take his nebulizer medication as simply a conduit and less obtrusive than a mask or holding a neb while he sleeps as he refuses to wear a mask. He declined this offering and was allowed to sleep as he wished, receiving only his 8pm medications. Lauri Jovel RN MENTAL HEALTH. * Rosmery Daly MD - 10/30/2023 5:50 PM EST INFECTIOUS DISEASE PROGRESS NOTE Reason for Consult: Polymicrobial UTI secondary to UPJ obstruction s/p ureteral stent on right side Pseudomonas bacteremia Subjective: Patient continues to have febrile episodes. Denies any pain anywhere. Physical Exam: Last value Range last 24 hrs Temperature Temp: 37.6 ??C (99.7 ??F) Temp: [36.9 ??C (98.5 ??F)-38.4 ??C (101.1 ??F)] Heart Rate Heart Rate: 96 Heart Rate: [75-102] Blood Pressure BP: 99/57 BP: (93-157)/(52-89) Respiratory Rate Resp: 22 Resp: [-] SpO2 SpO2: (!) 85 % SpO2: [85 %-99 %] General: no acute distress, wheelchair-bound Head: normocephalic, atraumatic EENT: No conjunctival petechiae Neck: No LAD Cardiovascular: Tachycardia, soft systolic murmur in mitral area, chest port (no tenderness to palpation-placed 3 years before ) pulmonary: Diminished breath sounds bilaterally Abdomen: Soft, suprapubic catheter in place with dried blood around it, no abdominal tenderness, left-sided colostomy in place Skin: No rash on visible skin Neuro: A&O, paraplegic Psych: Euthymic, pleasant I have reviewed the pertinent laboratory, microbiology, and diagnostic/radiology/procedure results: Recent Labs 10/30/23 0007 10/29/23 0028 10/28/23 0012 WBC 7.5 7.4 8.4 HGB 9.4* 9.4* 9.7* HCT 28.1* 28.2* 28.8* PLATELET 188 150 149 Recent Labs 10/30/23 0007 10/29/23 0028 10/28/23 0012 NA 141 141 142 K 4.0 3.8 3.7 CL 104 104 108* CO2 BUN 8* 10 13 CREATININE 0.74* 0.76* 0.82 Recent Labs 10/25/23 1050 AST 40* ALT 27 ALKPHOS 54 BILITOT 0.3 No results found for: CRP No results found for: SEDRATE No results found for: SPGRAVITYUA, PHUADIP, PROTEINUADIP, GLUCOSEU, KETONESUA, UROBILIUADIP, BLOODUADIP, NITRATEUA, LEUKOESTERUA, WBCUA, RBCUA, BILIRUBINUA Microbiology: 10/24-urine culture-Proteus mirabilis, Pseudomonas 10/24-blood culture-Pseudomonas aeruginosa 10/25-urine culture-Enterococcus faecalis 10/25-blood culture-NGTD 10/28-blood culture-NGTD Antimicrobials: 10/24 to 10/25-cefepime 10/26 to present Zosyn 10/28 to 10/29 vancomycin Imaging/diagnostics: Reviewed Impression: Nighat Barrios is a 58 y.o. male with a history of paraplegia (secondary to cervical spine injury s/pmechanical fall off of roof on 10/2020), diverting colostomy, Chronic decubitus ulcer, chronic suprapubic tube, nephrolithiasis, recent UTI was transferred from [facility] for currently being managed for septic shock secondary to polymicrobial UTI with right ureteral obstruction and hydronephrosis s/pright ureteral stenting with 1 renal stone removed, Pseudomonas bacteremia. For his gram-negative bacteremia secondary to source patient will need 2 weeks of IV antibiotic therapy-Zosyn based on his culture data. Overall he has been hemodynamically stable, leukocytosis resolved. But he continues to have febrile episodes of unclear etiology. No further evidence of bacteremia, chest port site does not appear to be infected. Unclear if it is secondary to the retained infected stone? At this point would recommend to repeat blood cultures and follow-up. RECOMMENDATIONS: -Monitor fever curve- -continue Zosyn for now. -Please repeat blood cultures today -Will likely need at least 2 weeks of IV antibiotics -Would likely need the other renal stone removed at the earliest if continues to remain febrile/bacteremic -Rest of the plan per primary team Patient discussed with ID attending Dr. Daly. Thank you for the consult. ID consult service will continue to follow. Please page ID Green team (pager [phone]) with questions or concerns. Marcus Thomas MD Fellow, Infectious Disease Pager: [phone] Epic Chat 10/30/2023 ID ATTENDING I have reviewed the chart as well as the documentation as written by Dr. Thomas. I did not re-examine today. The assessment and plan were formulated in discussion with me and I agree with them as documented. I would add/modify: Unclear why he remains febrile. Retained stone possibly continues to seed urine but should be covered well with the antibiotics. He does not seem to have other clear signs/symptoms of infection. For now continue to monitor. If this continues would need to consider possibly repeat imaging and/or non-infectious sources of fever (eg drug fever, clots, etc.) Rosmery Daly MD Infectious Diseases * Monty Sequeira PA - 10/30/2023 12:19 PM EST Images from the original note were not included. Urology Progress Note Patient: Nighat Barrios : 1965 Room: [place] [id number]- Admit date: 10/25/2023 Attending: Yessi Lopes MD ID: Nighat Barrios is a 58 y.o. male with a history of paraplegia with indwelling SPT, prior nephrolithiasis with reported LL treatment 5 Days Post-Op s/p ureteral stent and bladder stone removal for urosepsis Subjective/24hr Events: - Weaned to RA after pulm toileting - Transferred from ICU to floor - Code status updated to DNR/DNI however patient now agreeable to short term intubation - Intermittently febrile tmax 101.1F - WBC wnl - Cr wnl - No new complaints Current Medications: pantoprazole EC 40 mg Oral Daily ipratropium-albuteroL 3 mL Nebulization Q4H acetylcysteine 600 mg Inhalation Q4H piperacillin-tazobactam 4.5 g Intravenous Q8H melatonin 6 mg Oral Nightly divalproex ER 500 mg Oral Daily multivitamin with minerals 1 tablet Oral Daily tamsulosin 0.4 mg Oral Daily sodium chloride 0.9 % (flush) 5 mL Intravenous BID heparin (porcine) 5,000 Units Subcutaneous Q8H [place] baclofen 20 mg Oral TID mirabegron ER 25 mg Oral Daily pregabalin 25 mg Oral TID traZODone 50 mg Oral Nightly docusate sodium 100 mg Oral TID senna 34.4 mg Oral Nightly Objective: Last value Range last 24hrs Temperature Temp: 37.2 ??C (99 ??F) Temp: [36.9 ??C (98.5 ??F)-38.4 ??C (101.1 ??F)] Heart Rate Heart Rate: 94 Heart Rate: [75-110] Blood Pressure BP: 140/72 BP: (93-157)/(52-89) Respiratory Rate Resp: 15 Resp: [10-29] SpO2 SpO2: 93 % SpO2: [89 %-99 %] Intake/Output Summary (Last 24 hours) at 10/30/2023 1219 Last data filed at 10/30/2023 1200 Gross per 24 hour Intake 710.3 ml Output 3535 ml Net -2824.7 ml Physical Exam: Gen: NAD, awake/alert CV: regular rate Pulm: No stridor or audible wheeze, breathing comfortably on RA Abd: soft, ND : SPT with CYU Ext: warm, well perfused Labs: Recent Labs 10/30/23 0007 10/29/23 0028 10/28/23 0012 WBC 7.5 7.4 8.4 HGB 9.4* 9.4* 9.7* HCT 28.1* 28.2* 28.8* PLATELET 188 150 149 Recent Labs 10/30/23 0007 10/29/23 0028 10/28/23 0012 NA 141 141 142 K 4.0 3.8 3.7 CL 104 104 108* CO2 28 27 24 BUN 8* 10 13 CREATININE 0.74* 0.76* 0.82 GLUCOSE 117 130 94 CALCIUM 7.9* 8.2* 8.2* MAGNESIUM 0.86 0.60* -- PHOS 1.9* 2.3* -- No results found for: SPGRAVITYUA, PHUADIP, PROTEINUADIP, GLUCOSEU, KETONESUA, UROBILIUADIP, BLOODUADIP, NITRATEUA, LEUKOESTERUA, WBCUA, BILIRUBINUA Imaging: SCAN DOC: TELEMETRY STRIPS Ordered by an unspecified provider. XR Chest One View Narrative: EXAMINATION: XR CHEST ONE VIEW CLINICAL HISTORY: surveil LLL mucus plus TECHNIQUE: 1 view of the chest . 2 images COMPARISON: Chest radiograph and CT 10/28/2023. FINDINGS: Examination is limited by the right upper extremity obscuring part of the [id number]. Left chest wall subcutaneous port with tip at the superior cavoatrial junction. Similar-appearing left basilar opacity. No pneumothorax. No pleural effusion. Unchanged cardiomediastinal contours. Partially visualized cervical fusion hardware. Impression: Similar appearing left basilar opacity. Preliminary report signed by: Michael Freeman MD at 10/29/2023 6:59 AM I have personally reviewed the image(s) and the resident's interpretation and agree with the findings, Caleb Branch MD at 10/29/2023 7:15 AM Thank you for letting us participate in the care of this patient. If you are a health care provider and have any questions regarding this report, please contact the number below. For patients who have questions please contact the health career law clerk that requested your imaging first. Electronically signed by: Caleb Branch MD, [facility] ([phone]), at 10/29/2023 7:15 AM - CT abdomen pelvis 10/28/23: IMPRESSION 1. Interval placement of a right-sided double-J stent within the ureter, expected appearance. 2. Right-sided nephrolithiasis with no hydronephrosis. 3. 2 small wedge-shaped regions of hypoattenuation within the right renal parenchyma are in retrospect visible on the previous CT, though highly obscured by motion artifact on that exam. This may represent focal nephronia with pyelonephritis. There is no intrarenal or pararenal abscess. 4. Bladder is decompressed which limits evaluation. However, there is probably a degree of circumferential wall thickening, most pronounced at the left lateral margin. Consider cystitis. - CT PE 10/28/23: IMPRESSION 1. No pulmonary thromboembolism 2. Occlusive mucous plugging in the left lower lobe bronchus with near total postobstructive left lower lobe collapse Micro: Microbiology Results (Last 30 days) Procedure Component Value Units Date/Time MRSA PCR Screen ([facility]/CGP/APD/NLH) [[id number]] Collected: 10/29/23 0648 Lab Status: Final result Specimen: Nasopharyngeal Swab Updated: 10/29/23 1320 MRSA Result Negative MRSA Interp -- Methicillin-resistant Staphylococcus aureus (MRSA) is NOT DETECTED The MRSA target DNA sequences (mec and SCC) were not detected within the acceptable ranges using the Xpert MRSA NxG on the GeneXpert Dx System ([employer]). This suggests the absence of MRSA in the patient specimen submitted for testing. This test is cleared by the U.S. Food and Drug Administration for clinical use and its performance characteristics have been verified by the [facility] at [facility]. This result does not rule out the presence of any other organisms. Rare false negative results may occur if MRSA is present at low concentrations with much higher concentrations of other organisms including MRSE or S. aureus with an empty SCC cassette. Comment: [VERIFIED DATE]10.29.23 Verified By:Katherine Early (Electronic Signature) Blood culture [[id number]] Collected: 10/28/23 0922 Lab Status: Preliminary result Specimen: Blood from Foot, Left Updated: 10/29/23 1501 Blood Culture No growth at 1 day. Blood culture [[id number]] Collected: 10/28/23 0910 Lab Status: Preliminary result Specimen: Blood from Hand, Right Updated: 10/29/23 1501 Blood Culture No growth at 1 day. Blood culture [[id number]] Collected: 10/25/23 1050 Lab Status: Preliminary result Specimen: Blood Updated: 10/29/23 1501 Blood Culture No growth at 4 days. Blood culture [[id number]] Collected: 10/25/23 1040 Lab Status: Preliminary result Specimen: Blood Updated: 10/29/23 1501 Blood Culture No growth at 4 days. Urine culture Cystoscopic Urine [[id number]] (Abnormal) (Susceptibility) Collected: 10/25/2313 Lab Status: Final result Specimen: Cystoscopic Urine Updated: 10/28/23 0748 Urine Culture -- Greater than 50,000 cfu/mL Pseudomonas aeruginosa Greater than 50,000 cfu/mL Enterococcus faecalis Susceptibility Pseudomonas aeruginosa MICROSCAN METHOD Amikacin Sensitive Aztreonam Sensitive Cefepime Sensitive Ceftazidime Sensitive Ciprofloxacin Sensitive Levofloxacin Sensitive [1] Meropenem Sensitive Piperacillin/Tazobactam Sensitive Tobramycin Sensitive [1] Levofloxacin and Ciprofloxacin may not adequately treat infections in critically ill patients even when isolates test susceptible in the laboratory. Contact Infectious Disease before using in critically ill patients. Susceptibility Enterococcus faecalis VITEK 2 METHOD Ampicillin Sensitive Ciprofloxacin Resistant Levofloxacin Resistant Nitrofurantoin Sensitive Penicillin Sensitive Vancomycin Sensitive Urine culture [[id number]] (Abnormal) (Susceptibility) Collected: 10/24/232056 Lab Status: Final result Specimen: Urine Updated: 10/28/2304 Urine Culture -- Greater than 100,000 cfu/ml Proteus mirabilis Greater than 100,000 cfu/ml Pseudomonas aeruginosa Susceptibility Proteus mirabilis VITEK 2 METHOD Amikacin Sensitive Ampicillin + Sulbactam Resistant Aztreonam Sensitive Cefazolin Sensitive Cefepime Sensitive Ceftazidime Sensitive Ceftriaxone Sensitive Gentamicin Sensitive Levofloxacin Resistant [1] Meropenem Sensitive Nitrofurantoin Resistant Piperacillin/Tazobactam Sensitive Tetracycline Resistant Tobramycin Sensitive Trimethoprim/Sulfa Resistant [1] Levofloxacin and Ciprofloxacin may not adequately treat infections in critically ill patients even when isolates test susceptible in the laboratory. Contact Infectious Disease before using in critically ill patients. Susceptibility Pseudomonas aeruginosa MICROSCAN METHOD Amikacin Sensitive Aztreonam Sensitive Cefepime Sensitive Ceftazidime Sensitive Ciprofloxacin Resistant Levofloxacin Resistant [1] Meropenem Sensitive Piperacillin/Tazobactam Sensitive Tobramycin Sensitive [1] Levofloxacin and Ciprofloxacin may not adequately treat infections in critically ill patients even when isolates test susceptible in the laboratory. Contact Infectious Disease before using in critically ill patients. Blood culture [[id number]] (Abnormal) (Susceptibility) Collected: 10/24/232056 Lab Status: Preliminary result Specimen: Blood Updated: 10/28/23 0806 Blood Culture -- Pseudomonas aeruginosa detected by PCR Isolate saved. If future testing is required, contact the Microbiology Line Maintenance Technician. Gram Stain Aerobic -- Growth detected in aerobic bottle. Gram Negative Rods seen Results called to and read back by Jose Dean Pseudomonas aeruginosa MICROSCAN METHOD Amikacin Sensitive Aztreonam Sensitive Cefepime Sensitive Ceftazidime Sensitive Ciprofloxacin Sensitive Levofloxacin Sensitive [1] Meropenem Sensitive Piperacillin/Tazobactam Sensitive Tobramycin Sensitive [1] Levofloxacin and Ciprofloxacin may not adequately treat infections in critically ill patients even when isolates test susceptible in the laboratory. Contact Infectious Disease before using in critically ill patients. A/P: Nighat Barrios is a 58 y.o. male now 5 Days Post-Op s/p right ureteral stent and bladder stone removal on 10/25 d/t pseudomonas bacteriemia, UTI. Overnight 10/28, patient had increased oxygen requirements from RA. CXR 10/28 showed concerns for fluid overload. He was upgraded to ICU for diuresis.CT/PE was obtained yesterday which was negative for PE however did reveal occlusive mucous pluggingfound in LLL bronchus with near total post-obstructive LLL collapse. CT abd/pelvis also obtained which did not reveal any renal abscesses. Ucx with Pseudomonas/Enterococcus/Proteus (final reports back), Bcx with pseudomonas. Since then new bcx x 4 NGTD. ID curbsided 10/28 who recommend OPAT at discharge with limited PO abx options. Willset up OPAT today. He is off pressor support and WBC is within normal limits. Continues to have intermittent fevers. We will continue Zosyn for now. Off Vanc now as MRSA nares negative. ID rec repeatblood cx today. Care management engaged for safe discharge planning in regards to his living situation at the [facility], relationship with his care takers, and assistance getting his motorized wheelchair in working condition. He will need FU URS/cystolitholapaxy for right 7mm UPJ stone, possibly right renal stones, residualbladder stones, which he is aware of. He will likely follow-up with his primary urologist for this.Called Dr. Molina's office and spoke w/ rehabilitation aide/scheduler 10/30. Awaiting call back. Of note, patient was made DNR/DNI however patient is agreeable with intubation for a short amount of time. NEURO: home baclofen, divalproex, pregabalin, trazodone, hydropxyzine prn, lorazepam prn; tylenol and oxycodone prn for pain CV: HDS PULM: Encourage cough, deep breathing -Duoneb GI: home PPI : home mirabegron, chronic sPT FEN: carb control diet ENDO: SSI HEME: SQH ID: on Zosyn (10/26 - ) - Cultures: - Ucx 10/25 & 10/24 - final report back - Bcx 10/24 with Pseudomonas - pre-ley - Bcx (2) 10/25 - NGTD - Bcx (2) 10/28 - NGTD - Bcx (2) 10/30 - pending PPX: home PPI, SQH, SCDs DISPO: Floor CODE: DNR/DNI however okay with intubation for short period of time Plan discussed with Dr. Lopes, Urology attending. KAN Ornelas 10/30/2023 [id number] * Lauri Jovel, STAFF THERAPIST - 10/30/2023 12:13 AM ESTSummary: Pt refusing resp therapies 7P-7A Nighat Barrios is a 58 y.o. male with a history of paraplegia with indwelling SPT, prior nephrolithiasis with reported LL treatment 4 Days Post-Op s/p ureteral stent and bladder stone removal for urosepsis Re: Providers wishes for Resp medication and aggressive pulm toilet. During my first encounter with Bruce after describing the therapies of Dilator and Mucolytics and that (I was going to give him a couple medications aimed at maintaining lung function and thinning secretions) I was met with c/o my belly doesn't feel good, why do I need a mask, I have a temp of 103 degrees and I don't feel well. I explained the benefits and said I would return later to try again and the pt thanked me and said ok. Attempt 2: Unfortunately, I had to wake the pt who explained he hasn't slept in a couple days and wanted to sleep, when I described the benefits of the medication and the rationale he exclaimed, Im not going to argue with you. I stated I was only trying to provide therapy in line with medical direction and goals of care (not in those words), but that its his decision. I explained I was trying to help him avoid problems in the future and I exited the room. I marked the 3rd rounds as on hold barring some acute need for an intervention I will respect thewishes of the pt this night. 0510 - Decided he wanted to do the treatments and tolerated them well. Possible plan to consider if pt agrees: Use of low flow heated humidified cannula. It can be low flow at 21% however it would provide a conduit for therapies (nebulizers specifically) that would not require a change in interfaces. Lauri Jovel RN MENTAL HEALTH * Vanesa Rojas RN - 10/29/2023 4:15 PM EST OUTCOME EVALUATION NOTE: OUTCOME SUMMARY: A+Ox4, unchanged neuro exam. Tachycardic, 90-110. Weaned from HFNC to RA this morning. Up to chair for about 1.5 hours, upon returning to bed new non- blanchable redness noted on R ischium. Mepilex placed, park interpreter messaged via secure chat, new wound consult placed, and MD made aware. Pt refused upon returning to bed to be turned left or right. Upon reassessment, pt asked to wait to be turnedfor his meeting with his psychiatrist. No pain reported. MRSA negative. Blood sugars d/c. Safety maintained. PLAN MOVING FORWARD: Q2 turns Maintain safety Downgrade INDIVIDUALIZED FALL PREVENTION INTERVENTIONS: Patient-specific fall risk factors per assessment: weakness, quadriplegia, lines/drains Assistance: Mechanical Lift w/ Q2hr turns Supervision: Hands on Surveillance: Bed locked in low position, call marshall within reach, purposeful hourly rounding, clutter free environment, bed/chair alarm on CPG GOAL OUTCOME EVALUATION: Continue care plan as documented. * Bella Lemon MD - 10/29/2023 11:16 AM EST STAFF PROGRESS NOTE Critical Care Medicine Author: BELLA LEMON MD Patient seen and examined on critical care rounds. Problem List: Acute hypoxic respirator failure Urosepsis Pseudomonas bacteremia Quadriplegic 24 Hour Events: Poor sleep Able to wean FiO2 support with aggressive pulmonary toilet Physical Exam Last value Range last 24 hrs Temperature Temp: 36.9 ??C (98.4 ??F) Temp: [36.9 ??C (98.4 ??F)-39 ??C (102.2 ??F)] Heart Rate Heart Rate: (!) 105 Heart Rate: [74-110] Blood Pressure BP: 130/74 BP: (101-158)/(70-90) Respiratory Rate Resp: 18 Resp: [9-25] SpO2 SpO2: 94 % SpO2: [87 %-99 %] Gen: Alert and oriented, no distress HEENT: HFNC in place CV: rrr on my exam RESP: coarse airway sounds right, improved on the left ABD: Soft, non distended, ostomy with output EXT: no edema, warm Neuro: Quadriplegic at baseline, mental status okay Labs: CMP Recent Labs 10/29/23 0028 10/28/23 0604 10/28/23 0436 10/28/23 0012 10/27/23 0037 10/26/23 0059 10/25/23 1050 10/25/23 0758 NA 141 -- -- 142 141 139 139 136 K 3.8 -- -- 3.7 3.6 3.9 3.7 4.0 CL 104 -- -- 108* 110* 109* 106 105 BUN 10 -- -- 13 19 23* 26* 26* CREATININE 0.76* -- -- 0.82 0.87 0.87 1.04 1.11 CO2 27 -- -- 24 21* 20* 21* 14* GLUCOSE 130 -- -- 94 83 100 91 101 ANIONGAP 10 -- -- 10 10 10 12 17* CALCIUM 8.2* -- -- 8.2* 8.1* 8.0* 8.1* 8.5 MAGNESIUM 0.60* -- -- -- 0.91 0.97 0.57* 0.55* PHOS 2.3* -- -- -- 2.4* 2.3* 2.8 3.0 PROT -- -- -- -- -- -- 5.4* -- ALBUMIN -- -- -- -- -- -- 3.2 -- AST -- -- -- -- -- -- 40* -- ALT -- -- -- -- -- -- 27 -- ALKPHOS -- -- -- -- -- -- 54 -- BILITOT -- -- -- -- -- -- 0.3 -- ESTGFR 105 -- -- 103 101 101 84 78 LACTATEVEN -- 1.0 0.8 -- -- -- 1.6 -- LFT No results for input(s): CHLPL, TRIG, HDL, LDLCHOL, CHOLHDL in the last 168 hours. CBC Recent Labs 10/29/23 0028 10/28/23 0012 10/27/23 0037 10/26/23 0059 10/25/23 1050 10/25/23 0758 WBC 7.4 8.4 15.3* 19.8* 36.2* 28.4* RBC 3.18* 3.24* 3.26* 3.39* 2.91* 3.76* HGB 9.4* 9.7* 9.8* 10.2* 8.8* 11.2* HCT 28.2* 28.8* 28.8* 29.8* 25.6* 32.9* MCV 88.7 88.9 88.3 87.9 88.0 87.5 MCH 29.6 29.9 30.1 30.1 30.2 29.8 MCHC 33.3 33.7 34.0 34.2 34.4 34.0 MPV 10.3 11.1 10.7 10.8 11.1 11.3 INR No results for input(s): PT, PTT, INR in the last 168 hours. ASSESSMENT, MANAGEMENT, and DECISION MAKIN58 year old gentleman with quadriplegia and chronic sptube who was admitted on 10/25 for urosepsis and Pseudomonal bacteremia who had been recovering well and nearing discharge when he was noted to be hypoxic. He was escalated to high flow nasal cannulaand ultimately transferred to the ICU for further management. He was given IV lasix due to findingson bedside echo suggesting pulmonary edema however CXR less convincing. No PE seen on CT and showing improvement with aggressive pulmonary toilet. Neuro: no acute pain. Continue home baclofen, divalproex, pregabalin and trazadone. Interacting andappears intact. Cardiac: heart rate and blood pressure remain good Resp: weaning FiO2 and moving towards nasal cannula. Will need to continue aggressive pulmonary toilet to prevent worsening. Now shares that he would consider a short course of intubation but better today. GI: continue diet and bowel regimen. : UOP and renal function good. CT scan yesterday with no unaddressed urologic acute issues. FEN: no issues Heme: hgb stable, no issues ID: Remains on Zosyn for pseudomonas bacteremia and will discuss plan with Urology team as he will likely need at discharge given his sensitivity profile. Acute respiratory failure most likely due tomucous plugging but given fever he may have developed an obstructive pneumonia, zosyn should cover this as well and would plan on a seven day course since no culture data available. Vancomycin started yesterday due to concern for pneumonia, will do a MRSA swab and if negative stop vancomycin. Endo: no issues Prophylaxis: sq heparin and home PPI Lines: mediport Dispo: ICU, likely transfer out later today or tomorrow. IS PATIENT CRITICALLY ILL ? Is there a high potential of sudden, clinically significant, or life threatening deterioration? No Is there a need for direct personal assessment and management to treat/prevent multiple vital organfailure/deterioration? No BELLA LEMON MD * Ester Edwards PA - 10/29/2023 7:35 AM EST Images from the original note were not included. Urology Progress Note Patient: Nighat Barrios : 1965 Room: [address] Admit date: 10/25/2023 Attending: Selma Brian MD ID: Nighat Barrios is a 58 y.o. male with a history of paraplegia with indwelling SPT, prior nephrolithiasis with reported LL treatment 4 Days Post-Op s/p ureteral stent and bladder stone removal for urosepsis Subjective/24hr Events: - CT/PE neg for PE however occlusive mucous plugging found in LLL bronchus with near total post-obstructive LLL collapse, CT abd/pelvis did not reveal any renal abscesses - Code status updated to DNR/DNI however patient now agreeable to intubation for a short amount of time - Ucx 10/25 & 10/24 final report back - WBC wnl - Intermittently febrile yesterday, last fever (102.2F) @ 0200 this morning - Cr wnl - Currently on 30L/min of 21% high flow nasal cannula - Interactive today, no new complaints Current Medications: pantoprazole EC 40 mg Oral Daily ipratropium-albuteroL 3 mL Nebulization Q4H acetylcysteine 600 mg Inhalation Q4H piperacillin-tazobactam 4.5 g Intravenous Q8H vancomycin 1 g Intravenous Q12H melatonin 6 mg Oral Nightly divalproex ER 500 mg Oral Daily multivitamin with minerals 1 tablet Oral Daily tamsulosin 0.4 mg Oral Daily sodium chloride 0.9 % (flush) 5 mL Intravenous BID heparin (porcine) 5,000 Units Subcutaneous Q8H ALDEN baclofen 20 mg Oral TID mirabegron ER 25 mg Oral Daily pregabalin 25 mg Oral TID traZODone 50 mg Oral Nightly docusate sodium 100 mg Oral TID senna 34.4 mg Oral Nightly Objective: Last value Range last 24hrs Temperature Temp: 37.4 ??C (99.3 ??F) Temp: [37.2 ??C (99 ??F)-39.5 ??C (103.1 ??F)] Heart Rate Heart Rate: 94 Heart Rate: [74-103] Blood Pressure BP: 137/86 BP: (126-158)/(73-90) Respiratory Rate Resp: 13 Resp: [9-25] SpO2 SpO2: 94 % SpO2: [87 %-99 %] Intake/Output Summary (Last 24 hours) at 10/29/2023 0811 Last data filed at 10/29/2023 0800 Gross per 24 hour Intake 4348 ml Output 3430 ml Net 918 ml Physical Exam: Gen: NAD, awake/alert CV: regular rate Pulm: nasal canula in place Abd: soft, ND : SPT with CYU Ext: warm, well perfused Labs: Recent Labs 10/29/23 0028 10/28/23 0012 10/27/23 0037 WBC 7.4 8.4 15.3* HGB 9.4* 9.7* 9.8* HCT 28.2* 28.8* 28.8* PLATELET 150 149 160 Recent Labs 10/29/23 0028 10/28/23 0012 10/27/23 0037 NA 141 142 141 K 3.8 3.7 3.6 CL 104 108* 110* CO2 27 24 21* BUN 10 13 19 CREATININE 0.76* 0.82 0.87 GLUCOSE 130 94 83 CALCIUM 8.2* 8.2* 8.1* MAGNESIUM -- -- 0.91 PHOS -- -- 2.4* No results found for: SPGRAVITYUA, PHUADIP, PROTEINUADIP, GLUCOSEU, KETONESUA, UROBILIUADIP, BLOODUADIP, NITRATEUA, LEUKOESTERUA, WBCUA, BILIRUBINUA Imaging: XR Chest One View Narrative: EXAMINATION: XR CHEST ONE VIEW CLINICAL HISTORY: surveil LLL mucus plus TECHNIQUE: 1 view of the chest . 2 images COMPARISON: Chest radiograph and CT 10/28/2023. FINDINGS: Examination is limited by the right upper extremity obscuring part of the [id number]. Left chest wall subcutaneous port with tip at the superior cavoatrial junction. Similar-appearing left basilar opacity. No pneumothorax. No pleural effusion. Unchanged cardiomediastinal contours. Partially visualized cervical fusion hardware. Impression: Similar appearing left basilar opacity. Preliminary report signed by: Michael Freeman MD at 10/29/2023 6:59 AM I have personally reviewed the image(s) and the resident's interpretation and agree with the findings, Caleb Branch MD at 10/29/2023 7:15 AM Thank you for letting us participate in the care of this patient. If you are a health care provider and have any questions regarding this report, please contact the number below. For patients who have questions please contact the health career law clerk that requested your imaging first. Electronically signed by: Caleb Branch MD, [facility] ([phone]), at 10/29/2023 7:15 AM - CT abdomen pelvis 10/28/23: IMPRESSION 1. Interval placement of a right-sided double-J stent within the ureter, expected appearance. 2. Right-sided nephrolithiasis with no hydronephrosis. 3. 2 small wedge-shaped regions of hypoattenuation within the right renal parenchyma are in retrospect visible on the previous CT, though highly obscured by motion artifact on that exam. This may represent focal nephronia with pyelonephritis. There is no intrarenal or pararenal abscess. 4. Bladder is decompressed which limits evaluation. However, there is probably a degree of circumferential wall thickening, most pronounced at the left lateral margin. Consider cystitis. - CT PE 10/28/23: IMPRESSION 1. No pulmonary thromboembolism 2. Occlusive mucous plugging in the left lower lobe bronchus with near total postobstructive left lower lobe collapse Micro: Microbiology Results (Last 30 days) Procedure Component Value Units Date/Time Blood culture [[id number]] Collected: 10/25/23 1050 Lab Status: Preliminary result Specimen: Blood Updated: 10/28/23 1502 Blood Culture No growth at 3 days. Blood culture [[id number]] Collected: 10/25/23 1040 Lab Status: Preliminary result Specimen: Blood Updated: 10/28/23 1502 Blood Culture No growth at 3 days. Urine culture Cystoscopic Urine [[id number]] (Abnormal) (Susceptibility) Collected: 10/25/23 0913 Lab Status: Final result Specimen: Cystoscopic Urine Updated: 10/28/23 0748 Urine Culture -- Greater than 50,000 cfu/mL Pseudomonas aeruginosa Greater than 50,000 cfu/mL Enterococcus faecalis Susceptibility Pseudomonas aeruginosa MICROSCAN METHOD Amikacin Sensitive Aztreonam Sensitive Cefepime Sensitive Ceftazidime Sensitive Ciprofloxacin Sensitive Levofloxacin Sensitive [1] Meropenem Sensitive Piperacillin/Tazobactam Sensitive Tobramycin Sensitive [1] Levofloxacin and Ciprofloxacin may not adequately treat infections in critically ill patients even when isolates test susceptible in the laboratory. Contact Infectious Disease before using in critically ill patients. Susceptibility Enterococcus faecalis VITEK 2 METHOD Ampicillin Sensitive Ciprofloxacin Resistant Levofloxacin Resistant Nitrofurantoin Sensitive Penicillin Sensitive Vancomycin Sensitive Urine culture [[id number]] (Abnormal) (Susceptibility) Collected: 10/24/232056 Lab Status: Final result Specimen: Urine Updated: 10/28/23 0804 Urine Culture -- Greater than 100,000 cfu/ml Proteus mirabilis Greater than 100,000 cfu/ml Pseudomonas aeruginosa Susceptibility Proteus mirabilis VITEK 2 METHOD Amikacin Sensitive Ampicillin + Sulbactam Resistant Aztreonam Sensitive Cefazolin Sensitive Cefepime Sensitive Ceftazidime Sensitive Ceftriaxone Sensitive Gentamicin Sensitive Levofloxacin Resistant [1] Meropenem Sensitive Nitrofurantoin Resistant Piperacillin/Tazobactam Sensitive Tetracycline Resistant Tobramycin Sensitive Trimethoprim/Sulfa Resistant [1] Levofloxacin and Ciprofloxacin may not adequately treat infections in critically ill patients even when isolates test susceptible in the laboratory. Contact Infectious Disease before using in critically ill patients. Susceptibility Pseudomonas aeruginosa MICROSCAN METHOD Amikacin Sensitive Aztreonam Sensitive Cefepime Sensitive Ceftazidime Sensitive Ciprofloxacin Resistant Levofloxacin Resistant [1] Meropenem Sensitive Piperacillin/Tazobactam Sensitive Tobramycin Sensitive [1] Levofloxacin and Ciprofloxacin may not adequately treat infections in critically ill patients even when isolates test susceptible in the laboratory. Contact Infectious Disease before using in critically ill patients. Blood culture [[id number]] (Abnormal) (Susceptibility) Collected: 10/24/232056 Lab Status: Preliminary result Specimen: Blood Updated: 10/28/23805 Blood Culture -- Pseudomonas aeruginosa detected by PCR Isolate saved. If future testing is required, contact the Microbiology Line Maintenance Technician. Gram Stain Aerobic -- Growth detected in aerobic bottle. Gram Negative Rods seen Results called to and read back by Jose Dean Pseudomonas aeruginosa MICROSCAN METHOD Amikacin Sensitive Aztreonam Sensitive Cefepime Sensitive Ceftazidime Sensitive Ciprofloxacin Sensitive Levofloxacin Sensitive [1] Meropenem Sensitive Piperacillin/Tazobactam Sensitive Tobramycin Sensitive [1] Levofloxacin and Ciprofloxacin may not adequately treat infections in critically ill patients even when isolates test susceptible in the laboratory. Contact Infectious Disease before using in critically ill patients. A/P: Nighat Barrios is a 58 y.o. male now 4 Days Post-Op s/p right ureteral stent and bladder stone removal on 10/25 d/t pseudomonas bacteriemia, progressing as expected. However overnight 10/28, patient had increased oxygen requirements from RA. He is currently on 30L/min of 21% high flow nasal cannula which has improved from yesterday. CXR 10/28 showed concerns for fluid overload. He was upgradedto ICU for diuresis. CT/PE was obtained yesterday which was negative for PE however did reveal occlusive mucous plugging found in LLL bronchus with near total post-obstructive LLL collapse. CT abd/pelvis also obtained which did not reveal any renal abscesses. Ucx with Pseudomonas/Enterococcus/Proteus (final reports back), Bcx with pseudomonas. Since then new bcx x 4 NGTD. ID curbsided 10/28 who recommend OPAT at discharge with limited PO abx options. Willset up OPAT today. He is off pressor support and WBC is now back within normal limits. Continues tohave intermittent fevers. We will continue Zosyn for now. Care management engaged for safe discharge planning in regards to his living situation at the [facility], relationship with his care takers, and assistance getting his motorized wheelchair in working condition. He will need FU URS/cystolitholapaxy for right 7mm UPJ stone, possibly right renal stones, residualbladder stones, which he is aware of. He will likely follow-up with his primary urologist for this.Plan to reach to urologist when patient is out of ICU. Of note, patient was made DNR/DNI yesterday however today patient is agreeable with intubation for a short amount of time. NEURO: home baclofen, divalproex, pregabalin, trazodone, hydropxyzine prn, lorazepam prn; tylenol and oxycodone prn for pain CV: HDS PULM: KAYLA GI: home PPI : home mirabegron, chornic sPT FEN: carb control diet ENDO: SSI HEME: SQH ID: on Zosyn (10/26 - ) - Cultures: - Ucx 10/25 & 10/24 - final report back - Bcx 10/24 with Pseudomonas - pre-ley - Bcx (2) 10/25 - NGTD - Bcx (2) 10/28 - pending PPX: home PPI, SQH, SCDs DISPO: Floor CODE: DNR/DNI however okay with intubation for short period of time Plan discussed with Dr. Lopes, Urology attending. KAN Monaco 10/29/2023 [id number] * Marley Madrigal MD - 10/29/2023 6:46 AM EST Brief Advance Care Planning update. Patient made DNR/DNI last night in the setting of worsening hypoxia and transfer to the ICU. He adamantly refused intubation even temporarily at that time per ICU and primary teams. This morning, respiratory status somewhat improved. Revisited code status in the setting of potential need for toilet bronchoscopy; patient confirmed that he would like to be DNR but is okay with short-term intubation. When asked about maximum duration of intubation he would tolerate, he did not have a fixed length of time. Dr. Malave of the Urology team independently confirmed this change in code status with the patient shortly thereafter and orders have been updated. Marley Madrigal MD * Ten Valentino - 10/29/2023 1:33 AM EST Respiratory Therapy Heated Humidified High Flow INDICATIONS: High O2 requirement HIGH FLOW SETTINGS: Interface: High flow nasal cannula Flow: 30 L/min FiO2: 21 % VITAL SIGNS: HR: 92 RR: 19 SpO2: 92 % SKIN ASSESSMENT: WDL CURRENT MEDICATIONS: , Nebulized Medications: n Acetylcystine BREATH SOUNDS: diminished Last Chest X-ray: Results for orders placed during the hospital encounter of 10/25/23 XR Chest One View Narrative EXAMINATION: XR CHEST ONE VIEW CLINICAL HISTORY: increase in O2 requirement TECHNIQUE: 1 view of the chest portable semiupright rotated COMPARISON: CT chest 10/24/2023 Impression FINDINGS/IMPRESSION:: Redemonstrated LLL probable atelectatic change with mild elevation of LEFT hemidiaphragm. No pneumothorax, pleural effusion, or confluent airspace opacity otherwise seen. Cardiomediastinal contours appear within normal limits for age. Accessed LEFT chest wall Mediport, catheter tip projects over the lower SVC. Thank you for letting us participate in the care of this patient. If you are a health care provider and have any questions regarding this report, please contact the number below. For patients who have questions please contact the health career law clerk that requested your imaging first. Electronically signed by: Allen García MD[facility] ([phone]), at 10/28/2023 3:39 AM ASSESSMENT: received patient on high flow PLAN: wean when able Ten Vera Mouser * Ashley Butts RCP - 10/28/2023 3:56 PM EST Respiratory Care High Flow Therapy Indication: High FiO2 Requirement Settings: O2 Device: High flow nasal cannula O2 Flow Rate (L/min): 30 L/min FiO2 (%): 30 % Vitals: Resp: 22 SpO2: 96 % Admitted on: 10/25/2023 LOS: 3 days IBW:82.2 kg CODE STATUS: DNR/DNI HPI: Nighat Barrios is a 58 y.o. male with PMH of quadriplegia s/p fall from roof 10/26/2020, neurogenic bladder/bowel with SP tube and cystostomy, stage-4 [facility]- [facility] who now presents as an upgrade to the SICU for acute hypoxic respiratory failure. Skin Integrity: WDL Lung Sounds: Diminished Assessment Pt remains on HFNC weaned today from 60% FIO2 to 30% FIO2 tolerating well and maintain SPO2 mid 90's CT scan was negative Pulmonary embolism but did show mucus Plugging and atelectasis in Left lower lobe Airway clearance performed today via cough assist with much encouragement pt is a quadriplegic and his cough remains very weak Pt also reviving mucomyst in aids to break down the secretions and make them easier to Mobilize Plan: Cont to wean FIO2 as tolerated, Cont ACT via cough assist and inhaled mucolytic * Kota Street, PLUG SAW OPERATOR - 10/28/2023 2:38 PM EST Speech Therapy Note Patient Profile: Nighat Barrios is a 58 y.o. male admitted on 10/25/2023 w/ past medical history quadriplegia s/p fall 10/26/2020, neurogenic bladder/bowel with SP tube and cystostomy who presented to [facility] last night with new agitation, found to have infected obstructing R urolithiasis and transferred for urgent urologic intervention. PLUG SAW OPERATOR consulted for clinical swallow evaluation. Interval History: Increased O2 needs today that is likely related to volume overload. Subjective: Pt reports no difficulty swallowing. Nursing assisting patient with lunch during this visit. Objective: Pt seen for dysphagia management and demonstrated the following: Pain: No report of pain. Respiratory Status: HFNC, 30 L/min, 40% FiO2 Current Diet: Carb Control diet 60/60/75 CHO counting level 2 Feeding / Oral Care Status: Patient is dependent Cognitive-Linguistic Status: affect appropriate to mood Command Following: Follows multi-step commands Positioning: HOB at 50 degrees Oral / Laryngeal Mechanism Clinical Assessment: Articulation is clear. Vocal quality is clear. Bolus Presentation(s): Thin liquid via straw Regular solid Oral Preparatory Phase: mastication of solids is timely and effective. Normal draw on straw. Bolus formulation and oral transit are also timely and effective. Negative oral stasis. Negative labial loss. Pharyngeal Phase: Initiation appears timely. No cough or change in vocal quality following swallows. Cough was noted x1 at a random moment but did not appear related to swallow. Pt denies sensation of pharyngeal stasis. Unable to voluntarily retch bolus material back to oropharynx for visualization. Esophageal Phase: No symptoms of dysphagia. Education: Discussed plan of care. Pt in agreement. Assessment: Pt was seen today for a follow-up PLUG SAW OPERATOR visit. Pt is tolerating a regular diet and thin liquids. No overt signs of aspiration. Pt denies difficulty swallowing. No further need for speech intervention at this time. Will sign off. Reconsult if needed. Pt will benefit from continued therapeutic interventions to achieve therapy goals. Diagnosis: functionally appearing oropharyngeal swallow. Recommendations: Diet: Regular solids Thin liquids PO medications: whole with sip of liquid Aspiration Precautions: Upright position during meals and for at least 30 mins following Slow rate; swallow between bites Excellent oral care. Speech Therapy Goals: - goals met. Pt will tolerate least restrictive diet without evidence of dysphagia / aspiration. Pt / caregiver will be independent with aspiration precautions, diet modifications, and safe swallowing strategies. Plan: Therapy Frequency (PLUG SAW OPERATOR Eval): other (see comments) (D/c from speech intervention.) Patient / family are in agreement with treatment plan. Total Minutes (Speech Language Pathology): 10 Thank you for this consult with this patient. Please feel free to page me with any questions or concerns. Kota Street MS, CCC-PLUG SAW OPERATOR Pager: [phone] Speech-Language Pathology Inpatient Rehabilitation Department * Ester Edwards, PA - 10/28/2023 7:46 AM EST Images from the original note were not included. Urology Progress Note Patient: Nighat Barrios : 1965 Room: [address] Admit date: 10/25/2023 Attending: Selma Brian MD ID: Nighat Barrios is a 58 y.o. male with a history of paraplegia with indwelling SPT, prior nephrolithiasis with reported LL treatment 3 Days Post-Op s/p ureteral stent and bladder stone removal for urosepsis Subjective/24hr Events: - Upgraded to ICU for hypoxia (currently on 35L/min of 50% high flow NC, fluid overload suspected - Code status updated to DNR/DNI per patient - Ucx 10/25 & 10/24 final report back - Downtrending WBC - Febrile this AM (102.7 F) - Cr wnl - Interactive today, no new complaints, denies CP or SOB Current Medications: ipratropium-albuteroL 3 mL Nebulization Q4H acetylcysteine 600 mg Inhalation Q4H piperacillin-tazobactam 4.5 g Intravenous Q8H melatonin 6 mg Oral Nightly divalproex ER 500 mg Oral Daily multivitamin with minerals 1 tablet Oral Daily tamsulosin 0.4 mg Oral Daily pantoprazole 40 mg Intravenous Daily sodium chloride 0.9 % (flush) 5 mL Intravenous BID heparin (porcine) 5,000 Units Subcutaneous Q8H ALDEN baclofen 20 mg Oral TID mirabegron ER 25 mg Oral Daily pregabalin 25 mg Oral TID traZODone 50 mg Oral Nightly docusate sodium 100 mg Oral TID senna 34.4 mg Oral Nightly Objective: Last value Range last 24hrs Temperature Temp: (!) 39.5 ??C (103.1 ??F) Temp: [36.7 ??C (98.1 ??F)-39.5 ??C (103.1 ??F)] Heart Rate Heart Rate: 91 Heart Rate: [80-92] Blood Pressure BP: 160/81 BP: (114-165)/(74-93) Respiratory Rate Resp: 21 Resp: [16-23] SpO2 SpO2: 92 % SpO2: [81 %-97 %] Intake/Output Summary (Last 24 hours) at 10/28/2023 0829 Last data filed at 10/28/2023 0732 Gross per 24 hour Intake 1254 ml Output 5225 ml Net -3971 ml Physical Exam: Gen: NAD, awake/alert CV: regular rate Pulm: nasal canula in place Abd: soft, ND : SPT with CYU Ext: warm, well perfused Labs: Recent Labs 10/28/23 0012 10/27/23 0037 10/26/23 0059 WBC 8.4 15.3* 19.8* HGB 9.7* 9.8* 10.2* HCT 28.8* 28.8* 29.8* PLATELET 149 160 163 Recent Labs 10/28/23 0012 10/27/23 0037 10/26/23 0059 10/25/23 1050 NA 142 141 139 139 K 3.7 3.6 3.9 3.7 CL 108* 110* 109* 106 CO2 24 21* 20* 21* BUN 13 19 23* 26* CREATININE 0.82 0.87 0.87 1.04 GLUCOSE 94 83 100 91 CALCIUM 8.2* 8.1* 8.0* 8.1* MAGNESIUM -- 0.91 0.97 0.57* PHOS -- 2.4* 2.3* 2.8 No results found for: SPGRAVITYUA, PHUADIP, PROTEINUADIP, GLUCOSEU, KETONESUA, UROBILIUADIP, BLOODUADIP, NITRATEUA, LEUKOESTERUA, WBCUA, BILIRUBINUA Imaging: XR Chest One View Narrative: EXAMINATION: XR CHEST ONE VIEW CLINICAL HISTORY: increase in O2 requirement TECHNIQUE: 1 view of the chest portable semiupright rotated COMPARISON: CT chest 10/24/2023 Impression: FINDINGS/IMPRESSION:: Redemonstrated LLL probable atelectatic change with mild elevation of LEFT hemidiaphragm. No pneumothorax, pleural effusion, or confluent airspace opacity otherwise seen. Cardiomediastinal contours appear within normal limits for age. Accessed LEFT chest wall Mediport, catheter tip projects over the lower SVC. Thank you for letting us participate in the care of this patient. If you are a health care provider and have any questions regarding this report, please contact the number below. For patients who have questions please contact the health career law clerk that requested your imaging first. Electronically signed by: Allen García MD, [facility] ([phone]), at 10/28/2023 3:39 AM Micro: Microbiology Results (Last 30 days) Procedure Component Value Units Date/Time Blood culture [[id number]] Collected: 10/25/23 1050 Lab Status: Preliminary result Specimen: Blood Updated: 10/27/23 1501 Blood Culture No growth at 2 days. Blood culture [[id number]] Collected: 10/25/23 1040 Lab Status: Preliminary result Specimen: Blood Updated: 10/27/23 1501 Blood Culture No growth at 2 days. Urine culture Cystoscopic Urine [[id number]] (Abnormal) (Susceptibility) Collected: 10/25/23 0913 Lab Status: Final result Specimen: Cystoscopic Urine Updated: 10/28/23 0748 Urine Culture -- Greater than 50,000 cfu/mL Pseudomonas aeruginosa Greater than 50,000 cfu/mL Enterococcus faecalis Susceptibility Pseudomonas aeruginosa MICROSCAN METHOD Amikacin Sensitive Aztreonam Sensitive Cefepime Sensitive Ceftazidime Sensitive Ciprofloxacin Sensitive Levofloxacin Sensitive [1] Meropenem Sensitive Piperacillin/Tazobactam Sensitive Tobramycin Sensitive [1] Levofloxacin and Ciprofloxacin may not adequately treat infections in critically ill patients even when isolates test susceptible in the laboratory. Contact Infectious Disease before using in critically ill patients. Susceptibility Enterococcus faecalis VITEK 2 METHOD Ampicillin Sensitive Ciprofloxacin Resistant Levofloxacin Resistant Nitrofurantoin Sensitive Penicillin Sensitive Vancomycin Sensitive Urine culture [[id number]] (Abnormal) (Susceptibility) Collected: 10/24/232056 Lab Status: Final result Specimen: Urine Updated: 10/28/23 0804 Urine Culture -- Greater than 100,000 cfu/ml Proteus mirabilis Greater than 100,000 cfu/ml Pseudomonas aeruginosa Susceptibility Proteus mirabilis VITEK 2 METHOD Amikacin Sensitive Ampicillin + Sulbactam Resistant Aztreonam Sensitive Cefazolin Sensitive Cefepime Sensitive Ceftazidime Sensitive Ceftriaxone Sensitive Gentamicin Sensitive Levofloxacin Resistant [1] Meropenem Sensitive Nitrofurantoin Resistant Piperacillin/Tazobactam Sensitive Tetracycline Resistant Tobramycin Sensitive Trimethoprim/Sulfa Resistant [1] Levofloxacin and Ciprofloxacin may not adequately treat infections in critically ill patients even when isolates test susceptible in the laboratory. Contact Infectious Disease before using in critically ill patients. Susceptibility Pseudomonas aeruginosa MICROSCAN METHOD Amikacin Sensitive Aztreonam Sensitive Cefepime Sensitive Ceftazidime Sensitive Ciprofloxacin Resistant Levofloxacin Resistant [1] Meropenem Sensitive Piperacillin/Tazobactam Sensitive Tobramycin Sensitive [1] Levofloxacin and Ciprofloxacin may not adequately treat infections in critically ill patients even when isolates test susceptible in the laboratory. Contact Infectious Disease before using in critically ill patients. Blood culture [[id number]] (Abnormal) (Susceptibility) Collected: 10/24/232056 Lab Status: Preliminary result Specimen: Blood Updated: 10/28/23805 Blood Culture -- Pseudomonas aeruginosa detected by PCR Isolate saved. If future testing is required, contact the Microbiology Line Maintenance Technician. Gram Stain Aerobic -- Growth detected in aerobic bottle. Gram Negative Rods seen Results called to and read back by Jose Dean Pseudomonas aeruginosa MICROSCAN METHOD Amikacin Sensitive Aztreonam Sensitive Cefepime Sensitive Ceftazidime Sensitive Ciprofloxacin Sensitive Levofloxacin Sensitive [1] Meropenem Sensitive Piperacillin/Tazobactam Sensitive Tobramycin Sensitive [1] Levofloxacin and Ciprofloxacin may not adequately treat infections in critically ill patients even when isolates test susceptible in the laboratory. Contact Infectious Disease before using in critically ill patients. A/P: Nighat Barrios is a 58 y.o. male now 3 Days Post-Op s/p right ureteral stent and bladder stone removal on 10/25 d/t pseudomonas bacteriemia, progressing as expected. However overnight, patient hadincreased oxygen requirements from RA yesterday. He is currently on 35L/min of 50% high flow nasal cannula. CXR obtained which shows concerns for fluid overload. Critical care fellow was notified andhe was upgraded to ICU for diuresis. CT/PE also being considered for new hypoxia. Patient updated his code status to DNR/DNI. Ucx with Pseudomonas/Enterococcus/Proteus, Bcx with pseudomonas. Waiting for all final reports to return from urine cultures then will curbside ID about abx duration. He is off pressor support and WBC curve is downtrending. Continues to have intermittent fevers. We will continue Zosyn for now and narrow antibiotics coverage as appropriate. Care management engaged for safe discharge planning in regards to his living situation at the [facility], relationship with his care takers, and assistance getting his motorized wheelchair in working condition. He will need FU URS/cystolitholapaxy for right 7mm UPJ stone, possibly right renal stones, residualbladder stones, which he is aware of. He will likely follow-up with his primary urologist for this. NEURO: home baclofen, divalproex, pregabalin, trazodone, hydropxyzine prn, lorazepam prn; tylenol and oxycodone prn for pain CV: HDS PULM: KAYLA GI: home PPI : home mirabegron, chornic sPT FEN: carb control diet ENDO: SSI HEME: SQH ID: on Zosyn (10/26 - ) - Cultures: - Ucx 10/25 & 10/24 - final report back - Bcx 10/24 with Pseudomonas - still pending - Bcx (2) 10/25 - NGTD PPX: home PPI, SQH, SCDs DISPO: Floor CODE: DNR/DNI KAN [place] 10/28/2023 [id number] * Jorge A Malave MD - 10/28/2023 5:43 AM EST Brief urology note: Notified by commander internal affairs early this morning the patient had increased oxygen requirements from room air yesterday evening to now 40 L/min of 60% high flow nasal cannula. I evaluated patient at bedside. Patient is comfortably laying in bed watching movie on his iPad. He denies any shortness of breath throughout this episode. He also denies any chest pain. Critical care fellow was notified and evaluated.Bedside ultrasound showed significant B-lines with concern for volume overload and likely fluid shifting in the setting of recent septic shock with subsequent resuscitation. EKG showing NSR. Patient is currently full code in our system. Patient is stating his wishes for being DNR/DNI. We had a lengthy discussion about his wishes surrounding this. He shows good insight and capacity regarding his medical decisions at this time. He states that he currently has DNR/DNI paperwork at [facility], however he did not have any of this in our system. He states his understanding that with his rapid increase in oxygen requirement in the last couple hours, the need for intubation within the near future is certainly a real possibility and he understands that if he chooses to be DNI and his respiratory function continues to decline there is a very real possibility . He states his understanding of this and says I would not want a breathing tube in even for a day or two, I have lived a long life. After discussion with ICU fellow, patient will be upgraded to ICU with plan for diuresis for likelyfluid shifts. If this does not improve his respiratory status then we will pursue CTPE to evaluate for other etiologies of hypoxia. Patient made DNR/DNI per his wishes. Dr. Lopes called and updatedon change in patient status. * LenkarTen - 10/28/2023 5:02 AM EST RT Airway Clearance Note Mode of Airway Clearance Therapy: Cough Assist $ Cough Assist Initial Tx: Yes Indication: Decreased ability to cough Patient Interface: mask Auto/Manual Control: automatic Inhale Time (sec): 2.5 Exhale Time (sec): 2.5 Pause (sec): 3 Inspiratory Pressure: 40 Expiratory Pressure: -40 Sets: 3 Cycles: 5 Tolerated Procedure: good Inhaled Medications Given: Nebulized Medications: Albuterol & Ipratroprium and Other: Mucomyst 20% Last Chest X-ray: Results for orders placed during the hospital encounter of 10/25/23 XR Chest One View Narrative EXAMINATION: XR CHEST ONE VIEW CLINICAL HISTORY: increase in O2 requirement TECHNIQUE: 1 view of the chest portable semiupright rotated COMPARISON: CT chest 10/24/2023 Impression FINDINGS/IMPRESSION:: Redemonstrated LLL probable atelectatic change with mild elevation of LEFT hemidiaphragm. No pneumothorax, pleural effusion, or confluent airspace opacity otherwise seen. Cardiomediastinal contours appear within normal limits for age. Accessed LEFT chest wall Mediport, catheter tip projects over the lower SVC. Thank you for letting us participate in the care of this patient. If you are a health care provider and have any questions regarding this report, please contact the number below. For patients who have questions please contact the health career law clerk that requested your imaging first. Electronically signed by: Allen García MD, [facility] ([phone]), at 10/28/2023 3:39 AM Assessment: received patient on NC at 2 lpm had to increase to 6 lpm started high flow 40/60% started Duo and mucomyst the started cough assist to help with cough Plan: wean high flow wean able may have to go to BIPAP if needed do duo neb Q4 mucomyst BID cough assist PRN Ten Vear Mouser * Justus Gramajo MD - 10/28/2023 3:15 AM EST Brief Progress Note: At approximately 0300, I was asked to evaluate the patient for increasing need in oxygenation. The patient reported to be on room air at baseline and had increased to 3L of NC for an O2 sat of 85%. He has no history of COPD. He reported no shortness of breath but stated that he was intermittently coughing with some phlegm throughout the night. To further evaluate this new increase in oxygenation,a CXR was ordered for possible aspiration pneumonia. Also, the patient was initiated on duoneb and expectorant in efforts to thin the phlegm that the patient has. At ~0400, the patient O2 requirement continued to increase. The patient remained without shortness of breath or chest pain, otherwise felt at baseline. At this point, I consulted respiratory therapy to assist with further management and added mucomyst to further break up secretions. Approximately 02 19, the patient O2 current continued to increase and was further was then placed on high flow nasal cannula and increased to 60% for proximally 1 hour. Respiratory was involved and administering Mucomyst which improved his saturations from 90 to 94%. During this, the patient statedthat he did not not want chest compressions or intubation (DNR/DNI) as he was currently full code. This change in CODE STATUS was discussed with my senior who stated that it there should be no change. Further testing recommended by my senior included an my senior involves obtaining an echo and a ICU consult for potential upgrade. Justus Gramajo MD * Maria G Adler, OT - 10/27/2023 1:40 PM EST Occupational Therapy Evaluation Patient Profile: Nighat Barrios (Bruce Barrios , chart marked for merge) is a 58 y.o. male with a history of C6 quadriplegia (October 2020) with indwelling SPT, prior nephrolithiasis with reported LL treatment, 1 Day Post-Op s/p ureteral stent and bladder stone removal for urosepsis Social History: Pt lives in a private residence/half-way type setting with two caregivers that provide 24/7 supervision/assist to patient and one other person. Home Set-up: One level accessible home PLOF: Pt is dependent for bathing, grooming, self-feeding, functional mobility, bed mobility, and positioning. Pt spends most of his time in a hospital bed at home due to power w/c not working properly (battery issue). Pt uses a universal cuff and stylus in his R UE to access ipad and cellphone. Pthas a baby monitor in his bedroom at home that his caregivers can hear him through. DME: dot lift, power wheelchair, hospital bed, universal cuff Precautions/Special Considerations: at risk to fall, C6 quadraplegia, L ischial pressure injury, suprapubic catheter, colostomy, high risk for skin breakdown, bilateral LE edema - recommend use of ANKITA compression stockings, baseline anxiety / fear of falling, carb control diet Objective: Seen today for OT evaluation. Vital Signs: HR: 82 bpm SpO2: 97% on RA BP: 164/88 (110), 177/99 (122) Pain: no c/o pain Skin: L ischial pressure injury, bloodied finger nails (stated he chews them when he is anxious) Cognitive Status/Behavior: Behavior / Mood: alert and cooperative Orientation: person, place, time, and date Follows commands: 1 step, 2 step, and 100% of the time Attention: [facility] Safety awareness: [facility] RASS: 0 Does best with preparation/plan d/t anxiety Vision & Perception: WNL/WFL Communication & Hearing: [facility] Musculoskeletal: H/o right nerve transfers for arm function 03/14/2022 ROM: limitations in L shoulder, bilateral PIP & DIP's, bilateral ankles and knee's Sensation: absent sensation from nipple line down through toes with exception of ability to feel touch/pressure on bottom of R foot, decreased sensation in hands/fingers UE Right Left Strength Strength Shoulder Flex 4/5 4/5 Abd 4/5 4/5 Elbow Flex 5/5 4/5 Ext 2+/5 2/5 Wrist Flex 3+/5 2/5 Ext 3+/5 2+/5 Hand Finger Flex 0/5 0/5 Finger Ext 0/5 0/5 * Able to abduct and flex R thumb slightly * Slight flexion in R MCP's Activities of Daily Living: Self-feeding: dependent, will trial extended straw cup Grooming: dependent Dressing: dependent Bathing: dependent Toileting: dependent Functional Mobility: Achieved bed chair position using bed features Dependent rolling L<>R with maximal A x 2 Mechanically lifted bed to BRODA chair (with gaymar air cushion) Balance: Static seated balance: poor, dependent Dynamic seated balance: poor, dependent Pt left in BRODA tilt in space chair with all needs met, RN instructed in weight shifting by PT staff, quad call marshall within reach, chair/bed alarm activated and family at the bedside following visit. Education: Patient has been educated on role of occupational therapy and rehabilitation, safety during transfers, positioning, increased participation in upright activity / sitting upright in BRODA or bed-chair position to increase activity tolerance, plan of care, and discharge planning. Patient ve rbalized/demonstrated understanding. Pt unable to verbalize/demonstrate understanding d/t cognitivestatus. Patient status, treatment, and activity/mobility recommendations discussed with nursing. Assessment: Pt has been seen for occupational therapy evaluation. Nighat Barrios presents with the following performance skill deficits and client factors: increased pain, decreased activity tolerance,decreased flexibility/ROM, decreased strength, decreased sitting/standing balance, hemodynamic instability, body habitus, sensory deficits, communication deficits, decreased motor control, decreased postural control, deconditioning, precautions/bracing, compromised mobility status, coping, and skinintegrity. These performance deficits have led to activity limitations and participation restrictions in the following areas of occupation: dressing, bathing, grooming, toileting, self- feeding, transfers/mobility, rest/sleep, home management, work, leisure, driving, community mobility, communication, and social participation. Pt is motivated though anxious and benefits from explanation and preparation prior to any movement. Pt tolerated BRODA chair well with vital signs stable. Pt's power wheelchair has not been working properly so he has been in bed for several weeks. Pt may benefit from [employer] team to assist with anxiety (pt chewed off all of his fingernails a couple nights ago d/t being so anxious). Pt would also benefit from referral to assist with power wheelchair/battery situation (pt stated he has a CM in the community). Pt will benefit from being mechanically lifted to BRODA chair daily to increase activity tolerance and promote upright activity. Anticipate d/c back to half-way/private living situation with caregiver support once medically ready for discharge. Pt would benefit from further inpatient OT interventions to address performance deficits and maximize participation, independence and safety with activities of daily living. Equipment Issued: none Equipment needs at discharge: pt has necessary equipment, although power w/c is currently not working d/t battery issues, will need assist with getting this fixed Anticipated Discharge Disposition (OT): home with home health (& caregivers) Discharge recommendation is based on the patient's current physical impairments, prior functional status, potential to return to prior level of function, patient motivation, reported home support, potential for functional gains, current level of endurance, reported home environment and anticipated trajectory of progress and may change based on patient progress during this hospitalization. Broda Chair Considerations: There are tilt and recline features located on the push bar on the back of the chair (these areeasier to use once patient in chair) Patient's in this chair are typically at high risk for skin breakdown Patient's should be tilted and/or reclined to achieve change in position/pressure every 20 minutes when in chair Change in position is defined as at least a 45 degree angle change, sustained for at least 2 minutes Patient's should not be left in Broda chair longer than 2 hours A cushion is recommended (at least Radha unless issued a specialized cushion from rehab department) EPM Level 2: Bed-Chair position, Mechanically lift to chair, Participate in self care, mechanical lift to BRODA chair Goals: To be achieved by 11/16/22 Patient will verbalize and demonstrate understanding of positioning and weight shifting while upright in bed-chair or BRODA chair (45 degree angle change for at least two minutes) Patient will consistently be oriented x 4 and CAM (-) Patient will independently drink from a cup in supported sitting with universal cuff, extended straw, and adaptive cup as needed 4. Patient will tolerate mechanical lift bed to BRODA chair with vital signs stable 5. Patient will initiate OOB activity daily following visual cue/aid as needed 6. Patient will complete daily B UE ROM & strengthening exercises independently 7. Patient will incorporate preferred coping strategies into daily routine without verbal cues to initiate OT: Therapy Frequency (OT): 1-3 times/wk Planned OT interventions: Role of occupational therapy/rehabilitation, Transfers, Assistive device/technique, Adaptive equipment training, ADL, Exercise, Breathing exercises, Positioning, Safety, Precautions/Protocol, Brace Management, Car Transfers, Functional Mobility, Activity pacing/Energy conse rvation, Home Program, Home Management, Balance, Recommendations, Family training, and Discharge planning. 2017 OT Evaluation Code Rationale: Diagnosis & Pertinent Co-Morbidities affecting Plan of Care: see PMHx Occupational Profile & Client History: Brief Expanded Extensive x Assessment of Occupational Performance: 1-3 performance deficits 3-5 performance deficits 5 + performance deficits x Clinical Decision Making: Low Moderate High x Clinical decision making of high complexity using standardized patient assessment instrument and measurable assessment of functional outcome. 75 minutes; evaluation Pager: [phone] Maria G Adler OT 10/27/2023 * Bianca Morris, PT - 10/27/2023 11:30 AM EST Physical Therapy Evaluation Patient profile: Nighat Barrios is a 58 y.o. right-handed male with h/o C6 quadriplegia since October 2020 and with a suprapubic catheter and prior nephrolithiasis admitted on 10/25/[address] Selma Brian MD for urosepsis. He is s/p ureteral stent and bladder stone removal 10/25. Of note, on e large stone was not amenable to extraction and will likely require URS/bladder staone removal should he have ongoing septic physiology. Patient with the following active problems: No past medical history on file. Past Surgical History: Procedure Laterality Date PRO CHANGE OF BLADDER TUBE, SIMPLE N/A 10/25/2023 CYSTOSTOMY TUBE, CHANGE (WRVU 0.9) performed by Selma Brian MD at [facility] OR PRO CYSTOSCOPY, INSERT URETERAL STENT Right 10/25/2023 CYSTO, STENT PLACEMENT (WRVU 2.82) performed by Selma Brian MD at [facility] OR PRO CYSTOSCOPY, REMV CALCULUS, SIMPLE N/A 10/25/2023 CYSTO, REMOVAL OF STENT, FOREIGN BODY OR CALCULUS, SIMPLE (WRVU 2.81) performed by Selma Brian MD at [facility] OR There are no active non-hospital problems to display for this patient. Social History: lives in [place], [place] in a group/private home setting; he has 2 caregivers M-F and another caregiver on weekends; they also care for another individual who has MS; patient stated he hasnot been up in his wheelchair in several weeks/couple months due to needing new batteries for his power wheelchair; sees a psychiatrist via telehealth for his anxiety Home set-up: single level, wheelchair accessible Baseline Mobility/ADL's: dependent Dot lift to power wheelchair; dependent for ADL's including eating; used universal cuff on R to hold a stylus with which he can use his phone and iPad Equipment at home: power wheelchair with R-hand joystick control; needs new batteries Fall history: power wheelchair, Dot lift, hospital bed, universal cuff, baby monitor Precautions/Special Considerations: fall risk; C6 quadriplegia with risk for autonomic dysreflexia;ostomy and suprapubic catheter; baseline anxiety; high risk for skin breakdown and currently has L ischial pressure injury: assure ischial pressure relief techniques are performed every 20 minutes for 2 minutes Lines: colostomy, suprapubic catheter, CVC/implanted port L upper chest, PIV's Activity Orders: as tolerated Diet: carb control Mobility and Positioning Recommendations: EPM Level 2: Bed-Chair position, Mechanically lift to chair, Participate in self care *Lift to Broda chair via full-body sling; Gaymar cushion in chair *Assure ischial pressure relief every 20 minutes for 2 minutes; must tilt at least 45 degrees for full pressure relief *ANKITA stockings when LE's are dependent in chair *soft protective boots on when in bed or chair *uses universal cuff with stylus on R for use of call marshall, iPad, iPhone Subjective: ???I'm afraid of falling.?? - stated when initially reluctant to attempt upright in bed/chair and in Broda chair Objective: Pt seen for evaluation today. Pain: none Vital Signs: At Rest With Activity SpO2 (RA) 96% 96% BP (MAP) 164/88 (110) mmHg 159/84 mmHg HR 81 bpm 93 bpm Mental Status: alert, oriented to person, place, and time; following commands; subjectively anxious; cooperative and willing to get up to Broda chair after functionality was demonstrated Vision: WFL with his glasses Skin: L ischial pressure injury; scar on L knee from prior injury during spastic period; fingernails bloodied and some missing completely from patient chewing at them when nervous; R 5th toenail bloodied and loose; pedal/lower leg edema Musculoskeletal: ROM: L>R finger flexion contractures, L shoulder flexion 110, hip flexion at least 90, knee flexion at least 90, plantarflexion contractures Strength/motor control: C6 quadriplegia with stronger R UE than L UE; shoulder flexion 4 R and 2- L, shoulder abduction 4 R and 2- L, shoulder ER and IR 3+ R; elbow flexion 5 R and 4 L, elbow extension 2+ R and 2- L, wrist extension 3+, wrist flexion 3+ R and 0 L; patient reports having had a nervetransfer surgery to R UE that allowed for improved distal UE/finger use and he is able to flex/extend fingers 1-3 slightly; LE's 0/5; noted to have abdominal/torso spasms intermittently when he was resisting UE's for motor assessment Sensation: absent light touch below nipple line with exception of some light touch and pressure appreciation in plantar aspect of R foot Bed Mobility: Supine to Sit: used bed/chair progression to assess tolerance to upright sitting since he has been fairly sedentary at home for past several weeks Sit to Supine: used bed options Rolling: dependent R and L for placement of lift pad Transfers: Bed to Chair: overhead lift with full-body sling to Broda chair; positioned in slight trendelenburgtilt with trunk slightly reclined for patient comfort Comment: donned knee-high ANKITA stockings when up in chair; instructed RN in use of tilt and recline features Balance: Sitting Static: unsupported sit not assessed; maintaining midline in supported sit in bed/chair Sitting Dynamic: n/a Education: Patient has been educated on Transfers, Positioning, Role of therapy, Discharge planning, and use of Broda chair and verbalizes understanding. Patient status, treatment, and mobility recommendations discussed with nursing. Instructed in [place] features to allow for [id number] and recline for ischial pressure relief every hour for 2 minutes at a minimum and optimally every 20-30 minutes. Assessment: Nighat Barrios was seen today for physical therapy evaluation. Patient with baseline C6 quadriplegia admitted with urosepsis now s/p ureteral stent and bladder stone removal presents with impairments in the following: ROM, strength, functional mobility, and balance, He has been mainly bedbound for the past several weeks whereas normally he was being Dot lifted to his power wheelchairand able to use public transportation. The batteries for his power wheelchair need to be replaced and he does not have the money to purchase them. He is using his R UE with universal cuff/stylus on his hand to utilize his iPad and iPhone and was able to activate the easy-touch call system provided.He tolerated an overhead lift to the Broda chair and upright sitting with slight trendelenburg tiltfor comfort. He will need diligent pressure relief techniques performed as he already has a L ischial pressure injury and has just healed from a R ischial pressure injury. He will need Social Work/financial support in order to purchase new batteries for his wheelchair. Since he has been fairly immobile for the past several weeks, he will benefit from home PT and OT to optimize his ROM, strength and participation with ADL's. Inpatient Physical Therapy Plan: 1-3 times/wk for ROM, upright positioning, strengthening, and patient education. Discharge Recommendations: Based on current findings- home with home health and his caregivers Consult Recommendations: BIT for anxiety management as needed Equipment needs: (patient needs new wheelchair batteries) Goals: To be achieved by 11/06/23: Pt. to demonstrate knowledge of safety limitations and precautions and will appropriately request assistance for functional activities and to mobilize. Pt. to demonstrate understanding of appropriate ROM and strengthening exercises. Pt. to tolerate sitting in Broda chair for 2 hours with appropriate pressure relief techniques performed by nursing staff. Family or caregiver to demonstrate understanding of therapeutic interventions to support the care of the patient. Pt will tolerate progression of upright sitting in Broda chair with stable vital signs. Patient/family understand and agree with plan as stated above. PT Evaluation Code Rationale: Diagnosis & Pertinent Co-Morbidities, personal factors, and present illness affecting Plan of Care: (see above); Additional personal factors or co- morbidities that impact plan: Total # of Factors: 0 1-2 3+ x Examination of body system impairments, functional limitations and behaviors, and/or participation restrictions. Addressing 1-2 elements Addressing 3 + elements Addressing 4 + elements x Clinical presentation: See assessment above. Stable/Uncomplicated Evolving/Fluctuating Symptoms Unstable/Unpredictable x Clinical decision making of moderate complexity based on pt's functional performance as outlined inthis evaluation. Time IN / OUT: 10:05-11:30 Total Time: 85 minutes BIANCA MORRIS PT Pager: [phone] Physical Therapy Inpatient Rehabilitation Department * Jordana Canchola MD - 10/27/2023 8:45 AM EST Images from the original note were not included. Urology Progress Note Patient: Nighat Barrios : 1965 Room: [address] Admit date: 10/25/2023 Attending: Selma Brian MD ID: Nighat Barrios is a 58 y.o. male with a history of paraplegia with indwelling SPT, prior nephrolithiasis with reported LL treatment 2 Days Post-Op s/p ureteral stent and bladder stone removal for urosepsis Subjective/24hr Events: - No pressor requirement - Ucx - Downtrending WBC - Febrile this AM but downtrending fever curve - Cr wnk - Interactive today, no new complaints Current Medications: piperacillin-tazobactam 3.375 g Intravenous Q8H divalproex ER 500 mg Oral Daily multivitamin with minerals 1 tablet Oral Daily tamsulosin 0.4 mg Oral Daily insulin lispro 1-6 Units Subcutaneous Q4H [facility] pantoprazole 40 mg Intravenous Daily sodium chloride 0.9 % (flush) 5 mL Intravenous BID heparin (porcine) 5,000 Units Subcutaneous Q8H [facility] baclofen 20 mg Oral TID mirabegron ER 25 mg Oral Daily pregabalin 25 mg Oral TID traZODone 50 mg Oral Nightly docusate sodium 100 mg Oral TID senna 34.4 mg Oral Nightly Objective: Last value Range last 24hrs Temperature Temp: (!) 38.5 ??C (101.3 ??F) Temp: [37.2 ??C (99 ??F)-39.9 ??C (103.8 ??F)] Heart Rate Heart Rate: 87 Heart Rate: [80-88] Blood Pressure BP: 124/75 BP: (116-130)/(65-75) Respiratory Rate Resp: 22 Resp: [20-24] SpO2 SpO2: 91 % SpO2: [91 %-97 %] Intake/Output Summary (Last 24 hours) at 10/27/2023 0845 Last data filed at 10/27/2023 0832 Gross per 24 hour Intake 4049 ml Output 2825 ml Net 1224 ml Physical Exam: Gen: NAD, awake/alert CV: regular rate Pulm: nonlabored breathing on room air Abd: soft,ND : SPT with CYU Ext: warm, well perfused Labs: Recent Labs 10/27/23 0037 10/26/23 0059 10/25/23 1050 WBC 15.3* 19.8* 36.2* HGB 9.8* 10.2* 8.8* HCT 28.8* 29.8* 25.6* PLATELET 160 163 227 Recent Labs 10/27/23 0037 10/26/23 0059 10/25/23 1050 NA 141 139 139 K 3.6 3.9 3.7 CL 110* 109* 106 CO2 21* 20* 21* BUN 19 * 26* CREATININE 0.87 0.87 1.04 GLUCOSE 83 100 91 CALCIUM 8.1* 8.0* 8.1* MAGNESIUM 0.91 0.97 0.57* PHOS 2.4* 2.3* 2.8 No results found for: SPGRAVITYUA, PHUADIP, PROTEINUADIP, GLUCOSEU, KETONESUA, UROBILIUADIP, BLOODUADIP, NITRATEUA, LEUKOESTERUA, WBCUA, BILIRUBINUA Imaging: SCAN DOC: TELEMETRY STRIPS Ordered by an unspecified provider. SCAN DOC: TELEMETRY STRIPS Ordered by an unspecified provider. Micro: Microbiology Results (Last 30 days) Procedure Component Value Units Date/Time Blood culture [[id number]] Collected: 10/25/23 1050 Lab Status: Preliminary result Specimen: Blood Updated: 10/26/23 1501 Blood Culture No growth at 1 day. Blood culture [[id number]] Collected: 10/25/23 1040 Lab Status: Preliminary result Specimen: Blood Updated: 10/26/23 1501 Blood Culture No growth at 1 day. Urine culture Cystoscopic Urine [[id number]] (Abnormal) Collected: 10/25/23 0913 Lab Status: Preliminary result Specimen: Cystoscopic Urine Updated: 10/26/23 1048 Urine Culture -- Greater than 50,000 cfu/mL Pseudomonas aeruginosa Greater than 50,000 cfu/mL Enterococcus faecalis Urine culture [[id number]] Collected: 10/24/232056 Lab Status: Preliminary result Specimen: Urine Updated: 10/26/23 1046 Urine Culture Culture in progress Blood culture [[id number]] (Abnormal) Collected: 10/24/232056 Lab Status: Preliminary result Specimen: Blood Updated: 10/26/23 1227 Blood Culture Pseudomonas aeruginosa detected by PCR Gram Stain Aerobic -- Growth detected in aerobic bottle. Gram Negative Rods seen Results called to and read back by Jose A/P: Nighat Barrios is a 58 y.o. male now 2 Days Post-Op s/p right ureteral stent and bladder stone removal 2/2 to pseudomonas bacteriemia, progressing as expected. Ucx with pseudomonas/Enterococcus, Bcx with pseudomonas. Final sensitivity pending. He is off pressor with down trending fever and WBC curve. We will continue Zosyn for now and narrow antibiotics coverage as appropriate. Care management engaged for safe discharge planning in regards to his living situation at the [facility], relationship with his care takers, and assistance getting his motorized wheelchair in working condition. He will need FU URS/cystolitholapaxy for right 7mm UPJ stone, possibly right renal stones, residualbladder stones, which he is aware of. NEURO: home baclofen, divalproex, pregabalin, trazodone, hydropxyzine prn, lorazepam prn; tylenol and oxycodone prn for pain CV: HDS PULM: KAYLA GI: home PPI : home mirabegron, chornic sPT FEN: carb control diet ENDO: SSI HEME: SQH ID: final sens pening, Zosyn (10/26 - ) PPX: home PPI, SQH, SCDs DISPO: Floor CODE: Full Jordana Canchola MD 10/27/2023 [id number] * Zabrina Disla, PLUG SAW OPERATOR - 10/26/2023 9:49 AM EST Speech Therapy Bedside Swallow Evaluation Patient Profile: Nighat Barrios is a 58 y.o. male admitted on 10/25/2023 w/ past medical history quadriplegia s/p fall 10/26/2020, neurogenic bladder/bowel with SP tube and cystostomy who presented to [facility] last night with new agitation, found to have infected obstructing R urolithiasis and transferred for urgent urologic intervention. PLUG SAW OPERATOR consulted for clinical swallow evaluation. Prior Level of Swallow Function: Patient seen by PLUG SAW OPERATOR team during admission in 2019, ultimately d/c from service on regular diet consistency. Pt reports consuming regular diet consistency since that time. Subjective: RN reports there was some concern for coughing with liquids immediately post-operatively, however pt has been steadily improving since that time. Pt endorses hunger, and is alert and conversant during today's assessment. Objective: Pt seen for evaluation today. Pain: no acute discomfort Respiratory Status: Room air Vision: aided with glasses Hearing: WFL Current Diet: NPO pending PLUG SAW OPERATOR; has consumed PO medications well per RN Feeding Status: Pt is dependent given quadriplegia Dependent for Oral Care? yes Cognitive-Linguistic Status: Fully Conscious: Awake, alert, oriented x3, comprehends spoken or written words, follows commands Follows Commands: Follows single step commands Positioning: HOB at 50 degrees Oral / Laryngeal Mechanism Clinical Assessment: Lingual: adequate ROM, strength Labial / Buccal: adequate closure, symmetric appearance Velar: elevates at midline Sensation: appears adequate to light touch Vocal fold function and airway protection: phonates well Speech Intelligibility: clear for conversation length utterances Mucosa: adequate Dentition: present and adequate Bolus Presentation(s) Thin liquid via straw, sequential sips Puree Regular solid Oral Preparatory Phase Mastication: adequate Oral Transit: intact Bolus Cohesion: intact for all consistencies trialed Labial Seal / Loss: negative for loss Oral Stasis: negative Pharyngeal Phase Laryngeal Elevation: present Vocal quality change: negative Cough / throat clear: negative Pt. complaint of food getting stuck: negative Fatigue across trials: no Respiratory rate and respiratory swallow pattern: coordinated Esophageal Phase Appears to be WFL, No overt clinical s/s of esophageal phase dysphagia noted during this evaluation. Education: Patient educated on results and recommendations, and verbalized understanding. Patient status, treatment and swallow recommendations were discussed with nursing. Assessment: Patient presents with functional appearing oropharyngeal swallow, and is appropriate toresume his baseline regular diet consistency. Given his quadriplegia, he will require feeding assistance at meal times. He is already set up with his phone and tablet, and verbally communicates well.PLUG SAW OPERATOR will follow for diet tolerance. Diagnosis: functional appearing oropharyngeal swallow Recommendations: Diet: Regular solids, Thin liquids PO medications: whole with sip of liquid Aspiration precautions: Upright position during meals and for at least 30 mins following Pt will require feeding assistance at meal times Excellent oral care Pt will benefit from continued PLUG SAW OPERATOR services while hospitalized and Do not anticipate need from PLUG SAW OPERATOR services in discharge location. Speech Therapy Goals: (To be met by discharge) Pt will tolerate least restrictive diet without evidence of dysphagia / aspiration. Pt / caregiver will be independent with aspiration precautions, diet modifications, and safe swallowing strategies. Plan: Therapy Frequency (PLUG SAW OPERATOR Eval): 1-3 times/wk Pt./family are in agreement with treatment plan. Total Minutes (Speech Language Pathology): 24 Thank you for this consult with this patient. Please feel free to page me with any questions or concerns. Zabrina Disla MS, [facility]-PLUG SAW OPERATOR Inpatient Speech Pathologist Pager #[phone] * Lucas Ley MD - 10/26/2023 9:04 AM EST Urology Progress Note Patient: Nighat Barrios : 1965 Room: [facility] Admit date: 10/25/2023 Attending: Dedra Arrington, DO ID: Nighat Barrios is a 58 y.o. male with a history of paraplegia with indwelling SPT, prior nephrolithiasis with reported LL treatment 1 Day Post-Op s/p ureteral stent and bladder stone removal for urosepsis Subjective/24hr Events: - Weaned off pressors this AM - Cultures here pending - WBC 19.8/36.2 - Cr 0.87/1.04 - Much more interactive today, no new complaints Current Medications: ceFEPime 2 g Intravenous Q8H insulin lispro 1-6 Units Subcutaneous Q4H [facility] pantoprazole 40 mg Intravenous Daily sodium chloride 0.9 % (flush) 5 mL Intravenous BID heparin (porcine) 5,000 Units Subcutaneous Q8H [facility] baclofen 20 mg Oral TID mirabegron ER 25 mg Oral Daily pregabalin 25 mg Oral TID traZODone 50 mg Oral Nightly docusate sodium 100 mg Oral TID senna 34.4 mg Oral Nightly valproate sodium 250 mg Intravenous Q6H [facility] acetaminophen 1,000 mg Intravenous Q8H [facility] Objective: Last value Range last 24hrs Temperature Temp: 37.3 ??C (99.1 ??F) Temp: [37 ??C (98.6 ??F)-38.6 ??C (101.5 ??F)] Heart Rate Heart Rate: 85 Heart Rate: [78-99] Blood Pressure BP: 111/63 BP: (86-142)/(53-109) Respiratory Rate Resp: 18 Resp: [15-25] SpO2 SpO2: 96 % SpO2: [93 %-99 %] Intake/Output Summary (Last 24 hours) at 10/26/2023 0904 Last data filed at 10/26/2023 0600 Gross per 24 hour Intake 3447.71 ml Output 2310 ml Net 1137.71 ml Physical Exam: Gen: NAD, awake/alert CV: regular rate Pulm: nonlabored breathing on room air Abd: soft,ND : Beck /SPT with CYU Ext: warm, well perfused Labs: Recent Labs 10/26/23 0059 10/25/23 1050 10/25/23 0758 WBC 19.8* 36.2* 28.4* HGB 10.2* 8.8* 11.2* HCT 29.8* 25.6* 32.9* PLATELET 163 227 168 Recent Labs 10/26/23 0059 10/25/23 1050 10/25/23 0758 NA 139 139 136 K 3.9 3.7 4.0 CL 109* 106 105 CO2 20* 21* 14* BUN 23* 26* 26* CREATININE 0.87 1.04 1.11 GLUCOSE 100 91 101 CALCIUM 8.0* 8.1* 8.5 MAGNESIUM 0.97 0.57* 0.55* PHOS 2.3* 2.8 3.0 No results found for: SPGRAVITYUA, PHUADIP, PROTEINUADIP, GLUCOSEU, KETONESUA, UROBILIUADIP, BLOODUADIP, NITRATEUA, LEUKOESTERUA, WBCUA, BILIRUBINUA Imaging: SCAN DOC: TELEMETRY STRIPS Ordered by an unspecified provider. SCAN DOC: TELEMETRY STRIPS Ordered by an unspecified provider. Micro: Ucx/Bcx pending A/P: Nighat Barrios is a 58 y.o. male now 1 Day Post-Op s/p right ureteral stent and bladder stone removal for urosepsis progressing as expected. His cultures are still pending; we will need to follow up on the OSH cultures for final antibiosis planning. His WBC/Cr and pressor requirements have all improved/weaned off and he is much improved clinically. He will need FU URS/cystolitholapaxy, which he is aware of. - Ok for urethral catheter removal - he has a chronic indwelling SPT - Abx, culture directed when possible - Likely downgrade in status if continued stability Lucas Ley MD 10/26/2023 [id number] Associated attestation - Selma Brian MD - 10/26/2023 12:43 PM EST Attending Attestation and Certification Please see Lucas Ley MD's note for details of the patient history of presentation and data.I have discussed, reviewed and agree with the documented History, Physical findings, Assessment andPlan of care. I have examined the patient myself and personally reviewed all studies. In addition, I certify thatI am a [facility] credentialed attending provider with admitting privileges and that the patient meets or has met medical necessity to require an inpatient IPI level of care meeting a minimum of two midnights or is on the [facility] inpatient only procedure list (status C) due to: acute injury, physiologic or anatomic insult requiring close monitoring; IV fluid resuscitaiton and/or IV medication; lab/imaging evaluation and has potential for urgent operative intervention. Of note, patient was found to have missing fingernails in the OR. I inquired about his living situation today. He states he is living with Jovanny and Annamarie. He also stated that he has not been able toget around recently and get to medical appointments, because the battery from his wheelchair is drained. Will plan to have social work see him tomorrow to evaluate his needs and social circumstances to assure he can be discharged to an appropriate and safe environment. * Selma Brian MD - 10/25/2023 6:44 AM EST Urology attending brief note: 58 y.o. male brought from [facility] with presumed urosepsis from obstructing RIGHT ureteral stone. Arrived on levophed, obtunded. Unable to provide consent himself. We attempted to contact his DPOA (daughter) but are unable to reach her. Given this is a life-threatening situation requiring urgent decompression of the RIGHT kidney, we will proceed to the operating room for this life-saving intervention without a written or phone consent. This was discussed with the risk management manager accounting consultant who stated this was the best process. Selma Brian MD, MS 10/25/2023 6:46 AM Urologic Oncology [facility], [place], [place] clay pigeon setter (Urology) and of [facility], [facility] documented in this encounter H&P Notes * Jameel Joyce MD - 11/06/2023 10:27 AM EST Images from the original note were not included. [facility] Medicine (#[id number]) History and Physical Patient info: Name: Nighat Barrios : 1965 PCP: No primary care provider on file. PCP phone number: None Date of Admission: 10/25/2023 ( Hospital Day 12 days ) Responsible Attending:Yessi Lopes MD ID: Nighat Barrios is a 58 y.o. 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 HPI: Patient presenting as transfer to hospital medicine service following management of sepsis secondary to pseudomonas bacteremia in setting of pyelonephritis and with and acute hypoxemic respiratory failure secondary to fluid overload further complicated my mucus plugging. At time of evaluation patient had tolerated room air on 11/05/23 with desaturations requiring re-initiation of oxygen supplementat ion LFNC @4L overnight and had been weaned off O2 again the morning of 11/06/23. Patient is saturating well on room air with no acute complaints, inquiring about plan for timing of bronchoscopy and concerned about NPO status with dry mouth and hunger. Denies Headache, Chest pain, Nausea/Emesis, Constipation, Diarrhea. Review of systems otherwise negative. From Critical Care H&P 10/28/23 Nighat Barrios is a 58 y.o. male with PMH of quadriplegia s/p fall from roof 10/26/2020, neurogenic bladder/bowel with SP tube and cystostomy, stage-4 left- sided ischial pressure ulcer followed by wound care, who now presents as an upgrade to the SICU for acute hypoxic respiratory failure. Mr Ron Disla was initially admitted to the SICU on 10/25/23 post-operatively after cystoscopy with stent placement and stone removal for obstructing R- urolithiasis given concern for sepsis in the setting of ongoing pressor requirement which quickly resolved and he was ultimately downgraded to the floor on 10/26/23. The patient had increasing oxygen requirement overnight 10/27-10/28 requiring escalation of supplemental O2 from room air to HFNC at 30 LPM 60% oxygen. Patient remained hemodynamically stable and CXRrevealed LLL probable atelectatic change with mild elevation of LEFT hemidiaphragm but without evidence of pneumothorax, effusion, or infectious consolidation. Lactate WNL at 0.8, VBG 7.37/44/v/24.8,bedside POCUS showing many B-lines concerning for pulmonary edema. The patient is also noted to have been having persistent secretions since the time of his admission for which he has been receiving NAC nebulizers and cough assist from RT which the patient endorses has been helpful. The patient was given 40 mg IV lasix and transferred to the care of the SICU team. Active Hospital Problems Diagnosis Septic shock Resolved Hospital Problems No resolved problems to display. There are no active non-hospital problems to display for this patient. No past medical history on file. Past Surgical History: Procedure Laterality Date PRO CHANGE OF BLADDER TUBE, SIMPLE N/A 10/25/2023 CYSTOSTOMY TUBE, CHANGE (WRVU 0.9) performed by Selma Brian MD at [facility] MA[facility] OR PRO CYSTOSCOPY, INSERT URETERAL STENT Right 10/25/2023 CYSTO, STENT PLACEMENT (WRVU 2.82) performed by Selma Brian MD at [facility] MA[facility] OR PRO CYSTOSCOPY, REMV CALCULUS, SIMPLE N/A 10/25/2023 CYSTO, REMOVAL OF STENT, FOREIGN BODY OR CALCULUS, SIMPLE (WRVU 2.81) performed by Selma Brian MD at [facility] OR No family history on file. Social History Socioeconomic History Marital status: Spouse name: Not on file Number of children: Not on file Years of education: Not on file Highest education level: Not on file Occupational History Not on file Tobacco Use Smoking status: Never Smokeless tobacco: Never Substance and Sexual Activity Alcohol use: Never Drug use: Never Sexual activity: Not Currently Other Topics Concern Not on file Social History Narrative Not on file Social Determinants of Health Financial Resource Strain: [...] Not on file Intimate Partner Violence: Not on file Housing Stability: Low Risk (10/27/2023) Housing Stability Vital Sign Unable to Pay for Housing in the Last Year: No Number of Places Lived in the Last Year: 2 Unstable Housing in the Last Year: No No medications prior to admission. Allergies Allergen Reactions Hydromorphone Other (See Comments) Daughter states makes him irritable and has hallucinations Objective: Vitals Last value Range last 24 hrs Temperature Temp: 37.2 ??C (99 ??F) Temp: [36.5 ??C (97.7 ??F)-37.2 ??C (99 ??F)] Heart Rate Heart Rate: 81 Heart Rate: [71-93] Blood Pressure BP: 160/87 BP: (84-160)/(54-98) Art Line BP BP (Arterial Line): -- MAP (NBP): [65 mmHg-117 mmHg] Respiratory Rate Resp: 20 Resp: [18-20] SpO2 SpO2: (!) 83 % SpO2: [80 %-99 %] Oxygen Delivery Oxygen Therapy O2 Device: Nasal cannula HFNC Size: Medium O2 Flow Rate (L/min): 4 L/min FiO2 (%): 40 % Reason for Oxygen: New documented hypoxia Intake/Output Summary (Last 24 hours) at 11/06/2023 1027 Last data filed at 11/06/2023 0350 Gross per 24 hour Intake 2088 ml Output 2700 ml Net -612 ml Patient Vitals for the past 168 hrs: Weight 11/06/23 0100 83.8 kg (184 lb 11.9 oz) Admit wt: 81.65 kg Physical Exam: Gen: Supine in bed, NAD HEENT: Anicteric. Non-injected. Oropharynx nonerythematous. No exudates. Uvula midline and palate rises symmetrically. CV: RRR. Normal S1 and S2. No M/R/G. Pulm: impaired air entry b/l lower lobes.. Abd: suprapubic tube in place. normoactive bowel sounds. Soft, nondistended, nontender. Ext: 2-3+ pitting edema. 0/5 strength b/l LE. Erogonomic boots in place. . Neuro: quadriplegia with arm movement (stable). alert and appropriate. Psych: cooperative, pleasant Lines/Tubes/Drains Implanted Port 10/25/23 1524 (Active) Port Accessed Date 11/02/23 11/02/23 1239 Port Accessed Time 1239 11/02/23 1239 Access Needle 20 gauge;3/4 in length 11/02/23 1239 Pain Prevention intradermal injection 10/25/23 1500 Indication/Daily Review of Necessity Inadequate peripheral IV access (see comment) 11/05/231999 Site Preparation/Maintenance dressing: dry and intact 11/06/23599 Dressing change due 11/09/23 11/02/23 1239 Needleless Connector change due 11/08/23 11/05/23 0000 Phlebitis 0-->no symptoms 11/06/23599 Infiltration 0-->no symptoms 11/06/23599 Site Signs/Symptoms no redness;no swelling;no warmth;no pain;no streak formation;no palpable cord;no drainage 11/06/23599 Number of days: 11 PIV 10/25/23 20 gauge metacarpal vein (top of hand), left (Active) Indication/Daily Review of Necessity fluid therapy intermittent;medication therapy intermittent 11/05/231999 Site Preparation/Maintenance dressing: dry and intact 11/06/23599 Securement catheter stabilization device, secured with 11/05/231999 Patency/Maintenance flushed without difficulty;blood return, unable to obtain;alcohol impregnated cap applied 11/05/231999 Dressing change due 11/01/23 11/02/23 0741 Phlebitis 0-->no symptoms 11/06/23599 Infiltration 0-->no symptoms 11/06/23599 Site Signs/Symptoms no redness;no swelling;no warmth;no pain;no streak formation;no palpable cord;no drainage 11/06/23599 Number of days: 12 Suprapubic Catheter 10/25/23 20 10 (Active) Clamp Status unclamped 11/05/23799 Dressing no dressing 11/05/23799 Characteristics scabbed 11/05/23 08 Site Care cleansed with chlorhexidine 11/05/23799 Tolerance no signs/symptoms of discomfort 01/04/24 0800 Urine Characteristics yellow 01/04/24 0800 Irrigation/Flush (mL) 0 (mL) 11/04/23 0814 Urine Output (mL) 75 11/06/23 0350 Net Suprapubic Output (mL) 175 11/04/23 0814 Number of days: 12 Colostomy 10/25/23 1220 (Active) Stoma Appearance bois forte appearance;round;pink 11/05/232215 Peristomal Skin intact 11/05/232215 Appliance 1-piece;changed;per protocol/policy 11/05/232215 Accessories/Skin Care wafer barrier over peristomal skin;skin barrier powder;cleansed with water 11/05/232215 Stoma Function stool;flatus 11/05/232215 Tolerance no signs/symptoms of discomfort 11/05/232215 Irrigation/Flush (mL) 0 (mL) 11/05/23 1600 Stool Output (mL) 350 11/05/232215 Net Colostomy Output (mL) 0 11/05/23 1600 Number of days: 11 Medications: piperacillin-tazobactam 4.5 g Intravenous Q8H ### sodium chloride Nebulization BID ### pantoprazole EC 40 mg Oral Daily ### ipratropium-albuteroL 3 mL Nebulization Q4H ### melatonin 6 mg Oral Nightly ### divalproex ER 500 mg Oral Daily ### multivitamin with minerals 1 tablet Oral Daily ### tamsulosin 0.4 mg Oral Daily ### sodium chloride 0.9 % (flush) 5 mL Intravenous BID ### heparin (porcine) 5,000 Units Subcutaneous Q8H [facility] ### baclofen 20 mg Oral TID ### mirabegron ER 25 mg Oral Daily ### pregabalin 25 mg Oral TID ### traZODone 50 mg Oral Nightly ### docusate sodium 100 mg Oral TID ### senna 34.4 mg Oral Nightly ### ondansetron, iohexoL, ipratropium-albuteroL, LORazepam, guaiFENesin, acetaminophen, sodium chloride0.9 % (flush), lidocaine, sodium chloride 0.9 % (flush), hydrOXYzine, sodium chloride 0.9 % (flush) Labs: CBC: Recent Labs 11/06/23 0100 11/05/2341611/04/23 1830 WBC 8.0 8.6 10.4* HGB 8.2* 8.6* 8.8* HCT 24.1* 25.7* 26.7* PLATELET 408* 429* 393* NEUTROABS 6.21* 6.39* 8.48* Chemistry: Recent Labs 11/06/23 01011/05/2341611/04/23 1830 NA 143 141 142 K 3.6 3.5 3.9 CL 106 105 107 CO2 BUN 6* 8* 8* CREATININE 0.63* 0.57* 0.59* GLUCOSE 132 126 108 ANIONGAP 10 9 12 Recent Labs 11/06/239911/05/2341611/04/23 1830 CALCIUM 8.8 8.6 8.7 MAGNESIUM 0.81 0.90 0.76 PHOS 3.6 2.9 2.6 LFT's: Recent Labs 10/25/23 1050 BILITOT 0.3 ALBUMIN 3.2 ALKPHOS 54 ALT 27 AST 40* Coags: No results for input(s): PT, INR, PTT, FIBRINOGEN, DDIMER in the last 168 hours. Invalid input(s): THROMBIN TIME Cardiac enzymes: No results for input(s): TROPONINT, CK, PROBNP in the last 7068 hours. Endocrine: Recent Labs 11/05/23416 TSH 2.87 Recent Labs 10/25/23 0758 HA1C 4.8 Heme: No results for input(s): LDH, HAPTOGLOBIN, URICACID in the last 168 hours. ABG: ABG (Arterial Blood Gas) No results found for: PHART, PO2ART, [id number], [id number] Microbiology: Pertinent radiology/diagnostic studies: Specimen Information: Foot, Left; Blood Specimen Comment: #1 Component Value Blood Culture Abnormal Coagulase negative Staphylococcus species isolated : two morphologies Interpretation of the importance of skin daphne such as Coagulase Negative Staph, Viridans Strep, Corynebacteria and other Gram Positive organisms from a single Blood Culture set requires clinical correlation. Gram Stain Anaerobic Abnormal Growth detected in anaerobic bottle. Gram Positive Cocci in clusters seen Gram Stain Aerobic Abnormal Growth detected in aerobic bottle. Gram Positive Cocci in clusters seen ASSESSMENT/PLAN: Nighat Barrios is a 58 y.o. male with relevant PMH of paraplegia with indwelling SPT, prior nephrolithiasis with reported LL treatment 10 Days Post-Op s/p ureteral stent and bladder stone removal for urosepsis. Nighat Barrios is a 58 y.o. male now Post-Op s/p right ureteral stent and bladder stone removal on 10/25 d/t pseudomonas bacteriemia, UTI. Patient has cleared his cultures and continues on Zosyn with active OPAT orders. He has good urine output and stable vital signs other than hypoxemia. Patient's underlying hypoexemia likely secondary to mucus plugging vs obstructive apnea as desaturations are mostly observed overnight. We are planning for add-on case for bronchoscopy on 11/06 or 11/07/23. Per pulmonology, IF patient does not receive bronchoscopy and remains on room air overnight he may dischargewithout this intervention. Either way, WILMER expected 11/07/23 with OPAT. Care management engaged for safe discharge planning in regards to his living situation at the [facility], relationship with his care takers, and assistance getting his motorized wheelchair in working condition. Unfortunately insurance will not cover replacement batteries. We are coordinating care givers coming to hospital so they can see how abx pump work on day of discharge. NEURO: Continuing home medications: baclofen, divalproex, pregabalin, trazodone, hydroxyzine prn, lorazepam prn; tylenol and oxycodone prn for pain CV: #Hypotension Episodic hypotension in setting of mild hypovolemia and autonomic dysfunction. -No acute intervention at this time PULM: Pulmonary medicine was originally consulted on 11/02/2023 in regards to possible bronchoscopy given mucus obstruction. The patient remains weak given his baseline paraplegia, ongoing illness, prolongedhospitalization. His weak cough is currently managed with Cough Assist/vibration, nebulized hypertonic saline. He is doing well on room air. Bronchoscopy is indicated for intermittent desaturations. -Bronchoscopy add-on case 11/06/23 -If maintaining saturations on room air thensSafe to discharge from respiratory perspective Encourage cough, deep breathing, percussive therapy with RT. HFNC PRN, wean as able - Duoneb - Mucomyst - Hypertonic saline nebs - awaiting ICU recs GI: #GERD -c/w home PPI : #Nephrolithiasis s/p surgical removal 10/25/23 -home mirabegron, chronic sPT FEN: carb control diet - Push PO fluids, 5 cups/day ENDO: #Hyperglycemia -SSI HEME: #PPX -SQH ID: #Aspiration Pneumonia #PsA bacteremia #Complicated UTI (Polymicrobial UTI secondary to UPJ obstruction s/p ureteral stent on right side) Fevers has resolved now and O2 requirements has improved. He is clinically stable and exam is non focal. He has a remaining retained stone which urology is planning to PCNL in about a month Antimicrobials: Zosyn 10/26-11/09/23 Cefepime 10/24-10/25 - Cultures: - Ucx 10/25 & 10/24 with pseudomonas, proteus, and enterococcus - final - Bcx 10/24 with Pseudomonas - final - Bcx (2) 10/25 - NGTD - Bcx (2) 10/28 - NGTD - Bcx (2) 10/30 - NGTD & coag neg staph - OPAT order in place PPX: home PPI, SQH, SCDs Jameel Joyce MD Internal Medicine, PGY - 2 [facility] Medicine #[id number] 11/06/2023 Associated attestation - Maritza Hampton MD - 11/06/2023 7:03 PM EST Attending Attestation and Certification Please see Jameel Joyce MD's note for details of the patient history of presentation and data. I have discussed, reviewed and agree with the documented History, Physical findings, Assessment and Plan of care. I have examined the patient myself and personally reviewed all studies. In addition, I certify thatI am a [facility] credentialed attending provider with admitting privileges and that the patient meets or has met medical necessity to require an inpatient IPI level of care meeting a minimum of two midnights or is on the [facility] inpatient only procedure list (status C) due to: acute respiratory compromise and/or hypoxia requiring assessment every 4 hours and the ability to respond immediately to the patient's need and sepsis due to complicated urinary tract infection Complicated urinary tract infection appears stable and under control on current antibiotic regimen,with course of antibiotics due to complete on 11/09. OPAT arranged if he can discharged prior to 11/09 and teaching with home caregivers is complete. He is at risk for recrudescence of infection as he has retained urinary stone(s), although urology plans for outpatient follow-up for definitive stone removal and likely stent exchange at some point in the next month (as an outpatient). He has persistent LLL collapse presumed due to mucous plugging, pulmonology weighing whether bronchoscopy is indicated to improve lung aeration. We continue to struggle to get Nighat to engage with aggressive pulmonary toilet. If he is not compliant with these therapies (cough assist, suctioning, VPEP, hypertonicsaline) in-hospital we will not arrange for discharge. Per report, prior treating teams were attempting to arrange for nocturnal oxygen for discharge. We have been told he will need overnight oximetry to qualify. Attempting to arrange for this tonight but it does not sound like we'll have final results until Thursday morning, as such this may be a barrier to discharge. * Bella Lemon MD - 10/28/2023 5:02 AM EST Images from the original note were not included. Critical Care - Admission Note History of Present Illness: Nighat Barrios is a 58 y.o. male with PMH of quadriplegia s/p fall from roof 10/26/2020, neurogenic bladder/bowel with SP tube and cystostomy, stage-4 left- sided ischial pressure ulcer followed by wound care, who now presents as an upgrade to the SICU for acute hypoxic respiratory failure. Mr Ron Disla was initially admitted to the SICU on 10/25/23 post-operatively after cystoscopy with stent placement and stone removal for obstructing R- urolithiasis given concern for sepsis in the setting of ongoing pressor requirement which quickly resolved and he was ultimately downgraded to the floor on 10/26/23. The patient had increasing oxygen requirement overnight 10/27-10/28 requiring escalation of supplemental O2 from room air to HFNC at 30 LPM 60% oxygen. Patient remained hemodynamically stable and CXRrevealed LLL probable atelectatic change with mild elevation of LEFT hemidiaphragm but without evidence of pneumothorax, effusion, or infectious consolidation. Lactate WNL at 0.8, VBG 7.37/44/v/24.8,bedside POCUS showing many B-lines concerning for pulmonary edema. The patient is also noted to have been having persistent secretions since the time of his admission for which he has been receiving NAC nebulizers and cough assist from RT which the patient endorses has been helpful. The patient was given 40 mg IV lasix and transferred to the care of the SICU team. Review of Systems: Per HPI Past Medical Surgery: No past medical history on file. Past Surgical History: Past Surgical History: Procedure Laterality Date PRO CHANGE OF BLADDER TUBE, SIMPLE N/A 10/25/2023 CYSTOSTOMY TUBE, CHANGE (WRVU 0.9) performed by Selma Brian MD at [facility] MAIN OR PRO CYSTOSCOPY, INSERT URETERAL STENT Right 10/25/2023 CYSTO, STENT PLACEMENT (WRVU 2.82) performed by Selma Brian MD at [facility] MAIN OR PRO CYSTOSCOPY, REMV CALCULUS, SIMPLE N/A 10/25/2023 CYSTO, REMOVAL OF STENT, FOREIGN BODY OR CALCULUS, SIMPLE (WRVU 2.81) performed by Selma Brian MD at [facility] MAIN OR Prior To Admission Medications: No medications prior to admission. Current Medications: ipratropium-albuteroL (Duoneb) 0.5 mg-3 mg(2.5 mg base)/3 mL nebulizer solution 3 mL guaiFENesin (Robitussin) (20 mg/mL) oral liquid 200 mg acetylcysteine (Mucomyst) 200 mg/mL (20 %) inhalation Solution 600 mg melatonin tablet 6 mg ondansetron ODT (Zofran-ODT) disintegrating tablet 4 mg piperacillin-tazobactam (Zosyn) 3.375 g vial attach to sodium chloride 0.9% 50 mL Mini-Bag Plus potassium chloride ER (Klor-Con M) crystal tablet 40 mEq OR potassium chloride ER (Klor-Con M) crystal tablet 20 mEq divalproex ER (Depakote ER) tablet 500 mg multivitamin with minerals (Thera M) tablet 1 tablet LORazepam (Ativan) tablet 0.5 mg tamsulosin (Flomax) capsule 0.4 mg oxyCODONE (Roxicodone) tablet 5 mg acetaminophen (Tylenol) tablet 650 mg pantoprazole (Protonix) injection 40 mg sodium chloride 0.9 % (flush) (BD PosiFlush Normal Saline 0.9) flush 5 mL sodium chloride 0.9 % (flush) (BD PosiFlush Normal Saline 0.9) flush 5-20 mL lidocaine (Xylocaine) 1% (10 mg/mL) injection 3 mg sodium chloride 0.9% infusion sodium chloride 0.9% infusion heparin (porcine) (5,000 units/1 mL) subcutaneous injection 5,000 Units baclofen (Lioresal) tablet 20 mg mirabegron ER (Myrbetriq) tablet 25 mg pregabalin (Lyrica) capsule 25 mg traZODone (Desyrel) tablet 50 mg docusate sodium (Colace) capsule 100 mg senna (Senokot) tablet 34.4 mg sodium chloride 0.9 % (flush) (BD PosiFlush Normal Saline 0.9) flush 10 mL hydrOXYzine (Atarax) tablet 25 mg magnesium sulfate 2 g in sterile water 50 mL infusion OR magnesium sulfate 2 g in sterile water50 mL infusion sodium chloride 0.9 % (flush) (BD PosiFlush Normal Saline 0.9) flush 10 mL Allergies: Allergies Allergen Reactions Hydromorphone Other (See Comments) Daughter states makes him irritable and has hallucinations Family History: No family history on file. Social History and Habits: Social History Socioeconomic History Marital status: Not on file Spouse name: Not on file Number of children: Not on file Years of education: Not on file Highest education level: Not on file Occupational History Not on file Tobacco Use Smoking status: Not on file Smokeless tobacco: Not on file Substance and Sexual Activity Alcohol use: Not on file Drug use: Not on file Sexual activity: Not on file Other Topics Concern Not on file Social History Narrative Not on file Social Determinants of Health Financial Resource Strain: [...] Not on file Intimate Partner Violence: Not on file Housing Stability: Low Risk (10/27/2023) Housing Stability Vital Sign Unable to Pay for Housing in the Last Year: No Number of Places Lived in the Last Year: 2 Unstable Housing in the Last Year: No Physical Exam: Last Set of Vitals and range of vitals over past 24 hours: Last value Range last 24 hrs Temperature Temp: 37 ??C (98.6 ??F) Temp: [36.7 ??C (98.1 ??F)-38.4 ??C (101.1 ??F)] Heart Rate Heart Rate: 92 Heart Rate: [80-92] Blood Pressure BP: (!) 160/91 BP: (114-165)/(74-93) Respiratory Rate Resp: 16 Resp: [16-23] SpO2 SpO2: 93 % SpO2: [81 %-97 %] Gen: Alert and oriented, NAD HEENT: Sclera non-icteric, PERRL, HFNC in place CV: RRR, no m/r/g RESP: CTAB, no wheezing ABD: Soft, normoactive bowel sounds EXT: WWP, palpable pulses bilaterally Neuro: Quadriplegic at baseline, cranial nerves grossly intact Laboratory (Last 24 Hours): Recent Results (from the past 24 hour(s)) POCT Glucose Result Value Ref Range POC Glucose 104 65 - 199 mg/dL POCT Glucose Result Value Ref Range POC Glucose 92 65 - 199 mg/dL Basic Metabolic Panel (non-fasting) Result Value Ref Range Glucose Lvl 94 65 - 199 mg/dL BUN 13 10 - 20 mg/dL Creatinine 0.82 0.80 - 1.50 mg/dL Sodium 142 135 - 145 mmol/L Potassium 3.7 3.5 - 5.0 mmol/L Chloride 108 (H) 98 - 107 mmol/L CO2 24 22 - 31 mmol/L Anion Gap 10 5 - 15 mmol/L Calcium 8.2 (L) 8.5 - 10.5 mg/dL Estimated GFR 103 >=60 mL/min/1.73 m?? Hemogram Result Value Ref Range WBC 8.4 4.0 - 9.5 x10(3)/mcL RBC 3.24 (L) 4.58 - 5.54 x10(6)/mcL Hemoglobin 9.7 (L) 13.7 - 16.5 g/dL Hematocrit 28.8 (L) 40.5 - 48.5 % MCV 88.9 82.9 - 93.1 fL MCH 29.9 27.5 - 32.1 pg MCHC 33.7 32.0 - 35.7 g/dL Platelets 149 145 - 357 x10(3)/mcL RDWSD 46.2 (H) 36.0 - 45.0 fL RDWCV 14.2 (H) 11.4 - 13.8 % MPV 11.1 7.6 - 12.9 fL nRBC % Auto 0.0 % nRBC Abs Auto 0.000 0.000 - 0.000 x10(3)/mcL Differential, Automated Result Value Ref Range Neutrophils % 78.7 % Neutr Abs (ANC) 6.64 (H) 1.70 - 6.10 x10(3)/mcL Lymphocytes % 12.7 % Lymphocytes Abs 1.1 0.9 - 3.2 x10(3)/mcL Monocytes % 6.6 % Monocyte Abs 0.6 0.3 - 0.9 x10(3)/mcL Eosinophils % 0.9 % Eosinophils Abs 0.1 0.0 - 0.4 x10(3)/mcL Basophils % 0.4 % Basophils Abs 0.0 0.0 - 0.1 x10(3)/mcL Immature Gran % 0.70 % Viry Gran Abs 0.06 (H) 0.00 - 0.04 x10(3)/mcL BLOOD GAS 2 VENOUS Result Value Ref Range pH Drake 7.37 7.32 - 7.42 pCO2 Drake 44 41 - 51 mmHg pO2 Drake 34 25 - 40 mmHg HCO3 Drake 24.8 mmol/L BE Drake -0.5 mmol/L Hgb Blood Gas 11.0 (L) 13.7 - 16.5 g/dL O2HB Drake 66.4 % COHB Drake 0.3 % METHB Drake 0.4 <=1.5 % Na Whole Blood 139 135 - 145 mmol/L K Whole Blood 3.4 (L) 3.5 - 5.0 mmol/L ICa Whole Blood 1.13 (L) 1.15 - 1.33 mmol/L CL Whole Blood 104 98 - 107 mmol/L Gluc Whole Bld 120 65 - 199 mg/dL Lactate WB 0.8 0.5 - 2.2 mmol/L FIO2 Drake 60 % BGas Source Venous Microbiology: Microbiology Results (last 7 days) Procedure Component Value - Date/Time Blood culture [[id number]] Collected: 10/25/23 1050 Lab Status: Preliminary result Specimen: Blood Updated: 10/27/23 1501 Blood Culture No growth at 2 days. Blood culture [[id number]] Collected: 10/25/23 1040 Lab Status: Preliminary result Specimen: Blood Updated: 10/27/23 1501 Blood Culture No growth at 2 days. Urine culture Cystoscopic Urine [[id number]] (Abnormal) (Susceptibility) Collected: 10/25/23 0913 Lab Status: Preliminary result Specimen: Cystoscopic Urine Updated: 10/27/23 0909 Urine Culture -- Greater than 50,000 cfu/mL Pseudomonas aeruginosa Greater than 50,000 cfu/mL Enterococcus faecalis Susceptibility testing in progress Organism Pseudomonas aeruginosa Enterococcus faecalis Susceptibility Pseudomonas aeruginosa MICROSCAN METHOD Amikacin Sensitive Aztreonam Sensitive Cefepime Sensitive Ceftazidime Sensitive Ciprofloxacin Sensitive Levofloxacin Sensitive [1] Meropenem Sensitive Piperacillin/Tazobactam Sensitive Tobramycin Sensitive [1] Levofloxacin and Ciprofloxacin may not adequately treat infections in critically ill patients even when isolates test susceptible in the laboratory. Contact Infectious Disease before using in critically ill patients. Radiology: Results for orders placed or performed during the hospital encounter of 10/25/23 XR Chest One View (Exam End: 10/28/2023 3:32 AM) Impression FINDINGS/IMPRESSION:: Redemonstrated LLL probable atelectatic change with mild elevation of LEFT hemidiaphragm. No pneumothorax, pleural effusion, or confluent airspace opacity otherwise seen. Cardiomediastinal contours appear within normal limits for age. Accessed LEFT chest wall Mediport, catheter tip projects over the lower SVC. Thank you for letting us participate in the care of this patient. If you are a health care provider and have any questions regarding this report, please contact the number below. For patients who have questions please contact the health career law clerk that requested your imaging first. Electronically signed by: Allen García MD, [facility] ([phone]), at 10/28/2023 3:39 AM Assessment/Plan: Nighat Barrios is a 58 y.o. male with PMH of quadriplegia s/p fall from roof 10/26/2020, neurogenic bladder/bowel with SP tube and cystostomy, stage-4 left- sided ischial pressure ulcer followed by wound care, who now presents as an upgrade to the SICU for acute hypoxic respiratory failure. Neuro: - Continue home baclofen, continue valproate, continue lyrica CV: - SBP goal: < 160, MAP goal > 65 - No requirement for vasopressor at this time Pulm: - Continue on HFNC, currently on 30LPM/60% FiO2 - ABG pending - CXR revealing for possible atelectasis but without other acute cardiopulmonary process - Continue on NAC nebulizer treatments and encourage cough assist with RT - Bedside ultrasound revealing for B-lines on lung window FEN/GI: - Continue home pantoprazole 40 mg daily - Bowel orders: docusate 100 mg TID - Carb Control 60/60/75 counting level 2 : - Suprapubic catheter - Start 40 mg lasix - Monitor UOP Endo: - KAYLA ID: - History of recurrent UTI, has chronic SP tube - Cultures: Pseudomonas, Enterococcus - afebrile, WBC WNL 8.4 most recently down from 15.3 - Antibiotics: Zosyn MSK: - KAYLA Heme: - KAYLA PPx: - DVT: SQH 5,000 units TID L/T/D: - 2x PIV - Mediport in L-chest - Suprapubic catheter Disp: admit to ICU, Critical Care Red 1 Eusebio Hernandes MD 10/28/2023 I have seen the patient in person and reviewed the resident's above history and I agree with the details as written. The assessment and plan were formulated in discussion with me and I agree with them as documented. Pertinent History: 58 year old gentleman with quadriplegia and chronic sp tube who was admitted on 10/25 for urosepsis and Pseudomonal bacteremia who had been recovering well and nearing discharge when he was noted to be hypoxic. He was escalated to high flow nasal cannula and ultimately transferred to the ICU for further management. He was given IV lasix due to findings on bedside echo suggesting pulmonary edema however CXR less convincing. Pertinent Exam: On my exam he is sitting up in bed in no distress eating breakfast. Denies any problems or sob. On auscultation he has coarse airway sounds L>R. Major issues addressed: Neuro: not in pain and mental status appears okay, although he does not appear to fully appreciate his hypoxia and is asking when he will be discharged. Tylenol for pain control and fever management. CV: Heart rate and blood pressure good but will monitor closely as his hypoxia may be a sign of developing sepsis. Echo today to look for evdience of worsening EF which could result in pulmonary edema or right heart strain. Resp: CXR with left lower lobe atelectasis but does not seem large enough to account for his acute hypoxic respiratory failure. That said, pulmonary edema also not obvious on CXR and although good uop response to lasix there has been no improvement in his oxygen support. Given the acute onset of his hypoxia either a mucous plug or PE seem most likely. He has been receiving some chest PT from bed percussion as well as hypertonic nebs with some clearance of sputum. Will continue with aggressive pulmonary toilet. CT scan to look for PE ordered. GI: Continue diet as he is refusing intubation therefore no reason to keep npo with his hypoxia, aspiration currently not a concern. Having ostomy output, continue bowel regimen. : uop adequate but infectious process remains a possibility therefore Urology has asked for CT abdomen and pelvis to assess for an abscess. Heme: no issues ID: Had been on Zosyn but the dose was increased today. Given the potential for pneumonia causing his fever and hypoxia Vancomycin started. Dispo: Continues to desire DNR/DNI. ICU for pulmonary toilet and management of his acute hypoxia. * Dedra Arrington DO - 10/25/2023 10:26 AM EST Critical Care - Admission Note History of Present Illness: Nighat Barrios is a 58 y.o. male History obtained from chart review & discussion with patient family : 58 yom w/ hx quadriplegias/p fall from roof 10/26/2020, neurogenic bladder/bowel with SP tube and cystostomy who presented to [facility] last night with new agitation, found to have infected obstructing R urolithiasis and transferred for urgent urologic intervention. He is admitted to the ICU s/p cysto with stent placement and stone removal. Notably, there was one large stone which was not amenable to extraction and will likely require URS/bladder stone removal should he have ongoing septic physiology. Review of Systems: Unable to obtain d/t patient sedation post anesthesia. Past Medical Surgery: No past medical history on file. Past and Surgical History: No past surgical history on file. Prior To Admission Medications: No medications prior to admission. Current Medications: NORepinephrine (Levophed) (16 mcg/mL) in dextrose 5% 250 mL infusion acetaminophen (Ofirmev) (1,000 mg/100 mL) infusion 1,000 mg ceFEPime (Maxipime) 2g vial attach to sodium chloride 0.9% 100 mL Mini-Bag Plus 2 g vancomycin (Vancocin) 1 gram in sodium chloride 0.9% 250 mL infusion vancomycin- intermittent dosing per levels glucose (Glutose) 40% oral geL OR dextrose 10% infusion OR glucagon (Glucagen) (1 mg/mL) injection solution 1 mg POCT Fingerstick Glucose AND insulin lispro (HumaLOG;Admelog) (100 unit/mL) subcutaneous injection vial 1-6 Units pantoprazole (Protonix) injection 40 mg sodium chloride 0.9 % (flush) (BD PosiFlush Normal Saline 0.9) flush 5 mL sodium chloride 0.9 % (flush) (BD PosiFlush Normal Saline 0.9) flush 5-20 mL lidocaine (Xylocaine) 1% (10 mg/mL) injection 3 mg sodium chloride 0.9% infusion sodium chloride 0.9% infusion heparin (porcine) (5,000 units/1 mL) subcutaneous injection 5,000 Units midazolam (pf) (Versed) (1 mg/mL) multi-dose injection fentaNYL (pf) (50 mcg/mL) multi-dose injection ketamine (Ketalar) (10 mg/mL) IV bolus injection (Anesthesia) propofoL (Diprivan) 10 mg/mL bolus injection (Anesthesia) rocuronium (Zemuron) (10 mg/mL) multi-dose injection vasopressin (VASOSTRICT) 0.2 units/mL IV infusion (Anesthesia) lactated ringers infusion heparin (pf) (porcine) (5,000 unit/mL) multidose injection dexmedeTOMIDine (Precedex) (4 mcg/mL) bolus injection (Anesthsia) ondansetron (pf) (Zofran) (2 mg/mL) injection sugammadex (Bridion) 100 mg/mL injection Allergies: Not on File Family History: No family history on file. Social History and Habits: Social History Socioeconomic History Marital status: Not on file Spouse name: Not on file Number of children: Not on file Years of education: Not on file Highest education level: Not on file Occupational History Not on file Tobacco Use Smoking status: Not on file Smokeless tobacco: Not on file Substance and Sexual Activity Alcohol use: Not on file Drug use: Not on file Sexual activity: Not on file Other Topics Concern Not on file Social History Narrative Not on file Social Determinants of Health Financial Resource Strain: Not on file Food Insecurity: Not on file Transportation Needs: Not on file Physical Activity: Not on file Intimate Partner Violence: Not on file Housing Stability: Not on file Physical Exam: Last Set of Vitals and range of vitals over past 24 hours: Last value Range last 24 hrs Temperature Temp: 37 ??C (98.6 ??F) Temp: [37 ??C (98.6 ??F)-37.4 ??C (99.4 ??F)] Heart Rate Heart Rate: 94 Heart Rate: [85-108] Blood Pressure BP: (!) 77/57 BP: (77-159)/(44-92) Respiratory Rate Resp: 14 Resp: [12-26] SpO2 SpO2: 99 % SpO2: [94 %-99 %] No intake or output data in the 24 hours ending 10/25/23 1026 Gen: awake, alert, confused HEENT: Sclera non-icteric, PERRL CV: RRR, no m/r/g RESP: Coarse BS bilaterally ABD: Soft, nontender, SP tube, ostomy bag to LLQ EXT: WWP, palpable pulses bilaterally Neuro: confused, BLE plegic, moves both uppers with strong wrist flexion but 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 male with pmh of paraplegia with chronic indwelling beck who is admittedto SICU s/p emergent cystoscopy/stone removal for septic shock in the setting of infected obstructing urolithiasis. He arrives to us sleepy but rousable, hypotension requiring low dose norepinephrine, without oxygenrequirement. We will continue resuscitation, monitor for evidence of ongoing sepsis with the retained bladder stones, and continue broad spectrum antibiotics. 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 s/p fall off of roof 10/26/2020, agitated at OSH and in ED today Pain control: acetaminophen, can start oxycodone if needed for pain; avoid dilaudid per family due to prior hx of agitation with its administration Sedation: on home seroquel, can give additional prn if agitation becomes an issue Patient at risk for delirium: Non-pharmacologic reorientation, day/night separation, vision/hearingaids Home meds: continue baclofen, continue valproate (check LFTs today), continue lyrica, hold seroquel(per Nicki, has nightmares) Sleep: Start trazodone Anxiety: prn lorazepam (home), add hydroxyzine CV: hypotension, distributive in the setting of septic shock Vasopressors: levophed SBP goal: <160, MAP goal > 65 EKG Arterial line removed shortly after arrival 2/2 pt agitation Trial bolus of 500ml LR, check lactate now Pulm: Extubated post op to RA FEN/GI: Can continue home protonix Bowel orders likely with neurogenic bowel , has significant dilation on XR, CTM NPO give meds : chronic UTI, neurogenic bladder with indwelling beck / SP tube beck, monitor UOP with target, will remove beck when okay per urology Endo: ISS A1C pending ID: reported hx of recurrent UTI, has SP tube Cultures:pending Antibiotics: Received Vanc/Cefipime/Flagyl pre-op, okay for Cefipime mono therapy per urologyelizabeth with culture date Heme: Normocytic anemia, unclear chronicity, no significant operative blood loss CBC QD PPx: DVT: SCD's, heparin GI: protonix HOB >30' Peridex mouth care L/T/D:PIV bilaterally, beck, SP, colostomy Disp: admit to ICU, Critical Care Red 2 IS PATIENT CRITICALLY ILL ? Is there a high potential of sudden, clinically significant, or life threatening deterioration? Yes Is there a need for direct personal assessment and management to treat/prevent multiple vital organfailure/deterioration? Yes If this patient is not critically ill, the reason for continued hospitalization is . PATIENT IS CRITICALLY ILL WITH THESE DIAGNOSES BEING MANAGED BY [facility] TEAM: Renal Disease/Failure Acute Sepsis Severe w/ organ failure & septic shock I personally performed 45 minutes of aggregate critical care time exclusive of procedures and teaching. This includes time spent during direct patient evaluation and reassessment, interpreting diagnostic tests, directing life and/or organ supporting interventions and documentation on the unit. Dedra Arrington DO 10/25/2023 * Lucas Ley MD - 10/25/2023 5:37 AM EST Images from the original note were not included. UROLOGY INPATIENT CONSULT NOTE CONSULT REQUESTED BY Cheyanne Lemon MD STEPHANIE Barrios is a 58 y.o. male with history of paraplegia, indwelling beck, nephrolithiasis, now presenting with right urolithiasis. New found agitation prompted ED visit and further workup was obtained as described below. He is notinteractive and answers only some questions; per report he is baseline agitated. He was febrile at the OSH ED and arrived to on 5 of levo which was subsequently increased to double digits. Labs: WBC 17.5, Cr 1.19 UA: nitrite/leuk +, >[address] A/P: significant for proximal right stone, ~7mm on the right with hydro . On exam, patient is toxic. Abdominal exam with right flank tenderness, no suprapubic tenderness. heis passing urine through SP catheter. No other related history. He received cefepime, vanc, metro and 4L fluids prior to arrival. MEDICAL HISTORY No past medical history on file. SURGICAL HISTORY No past surgical history on file. MEDICATIONS No current facility-administered medications on file prior to encounter. No current outpatient medications on file prior to encounter. SOCIAL HISTORY Social History Socioeconomic History Marital status: Not on file Spouse name: Not on file Number of children: Not on file Years of education: Not on file Highest education level: Not on file Occupational History Not on file Tobacco Use Smoking status: Not on file Smokeless tobacco: Not on file Substance and Sexual Activity Alcohol use: Not on file Drug use: Not on file Sexual activity: Not on file Other Topics Concern Not on file Social History Narrative Not on file Social Determinants of Health Financial Resource Strain: Not on file Food Insecurity: Not on file Transportation Needs: Not on file Physical Activity: Not on file Intimate Partner Violence: Not on file Housing Stability: Not on file No data to display PHYSICAL EXAM Current 24 Hours Temp: 37.4 ??C (99.4 ??F) Temp: [37.4 ??C (99.4 ??F)] Heart Rate: (!) 108 Heart Rate: [85-108] BP: 125/87 (levo @7.5mcg/hr) BP: (77-156)/(44-88) Resp: 20 Resp: [20] SpO2: 95 % SpO2: [95 %-96 %] No intake/output data recorded. GEN: Resting comfortably in bed, conversant, NAD. HEENT: NCAT. CHEST: CTAB. CV: RRR, normal S1 S2 sounds. ABD: Soft, NTND, BS present. : Right CVA tenderness, no suprapubic tenderness. SPT in place EXTR: Moving spontaneously. 2+ pulses bilaterally. No edema. SKIN: Warm and dry. NEURO: Alert and follows commands. No results for input(s): WBC, HGB, HCT, PLATELET in the last 168 hours. No results for input(s): NA, K, CL, CO2, BUN, CREATININE, GLUCOSE, CALCIUM, MAGNESIUM, PHOS in the last 168 hours. No results for input(s): PT, PTT, INR in the last 168 hours. No results for input(s): BILITOT, BILIDIR, AST, ALT, ALKPHOS, AMYLASE, LIPASE in the last 168 hours. IMAGING MICRO STUDIES No results found for: SPGRAVITYUA, PHUADIP, PROTEINUADIP, GLUCOSEU, KETONESUA, UROBILIUADIP, BLOODUADIP, NITRATEUA, LEUKOESTERUA, WBCUA, BILIRUBINUA No results for input(s): URINECULTURE in the last 720 hours. No results for input(s): BLOODCX in the last 720 hours. IMPRESSION / RECOMMENDATIONS 58 y.o. male with history of paraplegia 2/2 accident, indwelling suprapubic tube, now presenting with symptomatic right proximal 7 mm urolithiasis. Patient is notably septic upon arrival with increased pressor requirements to double digits of levophed in the ED. Broad spectrum antibiotics to be redosed here. Due to the severity of this and his inconsentable nature, his daughter Luz Barrios was attempted to be reached multiple times without successful contact. Given his septic picture and the urgent need for decompression to prevent further progression of his current life threatening event, we are proceeding without obtained informed consent for cystoscopy and RIGHT ureteral stent. Critical care to be updated per ED for likely ICU admission. - booked for OR, B case - NPO, abx - pain control, antiemetics - likely ICU disposition post OR Lucas Ley MD 10/25/2023 Urology Consult [phone] Associated attestation - Selma Brian MD - 10/25/2023 1:12 PM EST I have personally seen and evaluated the patient and I agree with the history, exam, assessment andplan as documented. 58 y.o. male with paraplegia 2/2 spinal cord injury presenting to [facility] ER last night with presumed urosepsis. He has a neurogenic bladder that is being managed with indwelling suprapubic cathter. CT scan with obstructing RIGHT ureteral stone and hydro. I discussed the patient's care with the referring ER MD at 10:30pm last night and accepted the patient for urgent transfer. He arrived at [facility] around 6am this morning. I personally reviewed and reviewed with the patient his most recent CT a/p which shows RIGHT hydro and obstructing proximal RIGHT ureteral stone. As per above, this is a life-threatening situation, requiring urgent decompression of the right collecting system. Patient is not oriented and not able to consent himself. DPNOLA (daughter) could not be reached via multiple attempts using available phone number between 6am and 8am. Thus, will proceed without written or phone consent. SELMA BRIAN MD 10/25/2023 documented in this encounter ED Notes * Norma Gardner, RN - 10/25/2023 9:20 AM EST Pt's mother Jennifer Barrios [phone] called for update, received, aware pt to OR at 0800. This technical report writer called OR and gave Jennifer's number for update. * Norma Gardner RN - 10/25/2023 7:59 AM EST Pt to OR transported per Anesthesia, Levophed increased. * Norma Gardner RN - 10/25/2023 7:29 AM EST Guzman Kaba BEADING MACHINE OPERATOR MICU at bedside, VS reviewed, MAP trending, decreased Levophed as per orders. Pt stating name and place, does not know date/time. Plan for inpatient admission and OR. * Norma Gardner RN - 10/25/2023 7:[address] Brian and Dr Ley Urology at pt's bedside, plan for OR. * Cheyanne Lemon MD - 10/25/2023 6:34 AM EST ED Attending Brief Note The patient was seen in conjunction with the resident physician. I have independently performed thekey portions of the history and physical exam. I have reviewed the diagnostic studies including labs, imaging studies and EKGs. I have discussed the details of the case with the resident. Brief Summary: 58 y.o. male with a history of a TBI and quadriplegia who comes to the emergency department from [facility] with an infected renal stone. He is septic and on 15 of Levophed. He received Flagyl,cefepime and vancomycin at 715 last night approximately 12 hours ago at [facility]. He is notable to give any history. He was quite agitated at [facility] and was given Haldol and Ativan. He was calm for the [facility] transport crew. He had 4 L of IV fluids in addition to his antibiotics. Urology was at the bedside in the ED and plans to take him to the OR as a be case to decompress hiskidney. We have not been able to reach his DURABLE POWER OF HUB LEAD so urology is reaching out to risk-management as to how to proceed. I will order a repeat dose of vancomycin and cefepime and we will continue to monitor and resuscitate while we await the OR. We will also contact critical care for admission after he is taken to the OR. Did this case involve critical care? Yes CRITICAL CARE DOCUMENTATION: Is there a high potential of sudden, clinically significant, or life threatening deterioration? Yes Are there life and/or organ supporting interventions that require frequent personal assessment and manipulation or support to treat/prevent vital organ failure/deterioration? yes I personally performed 40 minutes of aggregate critical care time exclusive of procedures and teaching during this emergency department visit. This includes time spent during direct patient evaluation and reassessment, interpreting diagnostic tests, directing life and/or organ supporting interventions, and documentation. Cheyanne Lemon MD 10/25/23 0636 * All Fischer MD - 10/25/2023 6:18 AM EST ED Resident Note HPI: Nighat Barrios is a 58 y.o. male with prior TBI, paraplegic with suprapubic catheter who presents to the Emergency Department urosepsis and obstructing renal stone. Patient lives in a half-way and was noted to be acting differently today with more agitation than his normal baseline which is alert an d oriented and conversant. He was seen at [facility] and found to have an obstructing renal stone with urosepsis. He received vancomycin, cefepime, Flagyl,, 1 mg lorazepam, 4 L of crystalloid and was maintained on approximately 5 ??g per minute of norepinephrine. Report from [facility] patient wascalm and would arouse to stimulus but was not agitated for them during transport. ROS as per HPI Vitals: ED Triage Vitals [10/25/23 0555] BP: (!) 77/44 Heart Rate: 85 Resp: 20 Temp: 37.4 ??C (99.4 ??F) Temp src: Axillary SpO2: 96 % O2 Device: RA O2 Flow Rate (L/min): n/a Physical Exam Vitals and nursing note reviewed. Constitutional: Appearance: He is well-developed. He is ill-appearing. HENT: Head: Normocephalic and atraumatic. Nose: Nose normal. Mouth/Throat: Mouth: Mucous membranes are dry. Eyes: Conjunctiva/sclera: Conjunctivae normal. Pupils: Pupils are equal, round, and reactive to light. Cardiovascular: Rate and Rhythm: Regular rhythm. Tachycardia present. Pulses: Normal pulses. Heart sounds: Normal heart sounds. Pulmonary: Effort: Pulmonary effort is normal. No respiratory distress. Breath sounds: Normal breath sounds. Abdominal: General: Abdomen is flat. There is no distension. Comments: Suprapubic catheter in place. Left ostomy is full. Mild abdominal distension. Musculoskeletal: Cervical back: Neck supple. Skin: General: Skin is warm and dry. Capillary Refill: Capillary refill takes less than 2 seconds. Neurological: Mental Status: He is alert. He is disoriented. Cranial Nerves: No cranial nerve deficit. ED Course: I have reviewed labs and imaging, images and available reports, and they are significant for: No orders to display Procedures Assessment and Plan: 58 y.o. male with urosepsis. On arrival, patient is on 5 ??g per minute of norepinephrine resting comfortably with maps around 60. Norepinephrine was increased to an patient has already received antibiotics and 4 L of IV crystalloid resuscitation. Should his blood pressure continue to decline will i ncrease norepinephrine and add vasopressin as I suspect he is had adequate fluid resuscitation at this time. He has some reported underlying intellectual disability but his arousal and will respond to basic questioning. Bedside ultrasound shows hyper dynamic EF with normal RV to LV ratio, no pericardial effusion. will re-dose vancomycin and cefepime here. Discussed with urology and their planning to take him for stenting as a be case today. Given his sepsis with shock we have engaged the critical care team and he will be admitted to the medical ICU after decompression. We have tried to contact patient's daughter for procedural consent but multiple times to call have been unsuccessful. We will continue to try patient needs emergent operative intervention. The visit findings, diagnosis, and care plan were discussed with the patient. All Fischer MD Resident 10/25/23 9733 Associated attestation - Cheyanne Lemon MD - 10/25/2023 9:26 AM EST ED ATTENDING ATTESTATION NOTE The patient was [...] noted below or in my separate note. * Katia Fatima RN - 10/25/2023 5:00 AM EST Sending Facility: [facility] Reason for Transfer: Urosepsis infected kidney stone Report:58yo male paraplegic with chronic uti x2 weeks. Presented with increasing agitation. Ativan 1mg and Haldol 10mg with no effect. Pt CT scanned found 7mm obstructing stone in right ureteral junction with fluid in retro renal area ? Ureteral rupture. Pt febrile with pressures 80s/40s. Pt given Cefepime 2gms, Vanc 1.5gm, Flagyl 500mg and Toradol 15mg. Levo at 2.5mg with increase in BP to 102/59. Pt has beck with 300ml damaso urine output, colostomy, J-tube. Pt has existing chronic decubitus ulcer on left buttock. Pt received 3L LR and 1L NS. Vital Signs: 0430 Pulse: 96 B/P: 102/59 (73) Resp: SPO2: 98 O2 LPM: blow by Temp: 38.4 Transporting Service: [facility] Time of Departure:0450 ETA: 0545 documented in this encounter Miscellaneous Notes * Plan of Care - Margraita Loomis RN - 11/09/2023 3:09 PM EST Nighat Barrios discharged to Home by ambulance with Patient. All belongings sent with patient. ALBERTO removed, incision , skin free from pressure ulcers. Discharge instructions, medications, and follow-upappointments reviewed, education provided, all questions answered. Patient instructed to call with concerns. * Plan of Care - Margarita Loomis RN - 11/09/2023 1:22 PM EST Discharging at 2pm. * Care Management Discharge - Lauren Carias RN - 11/09/2023 11:13 AM EST CARE MANAGEMENT FINAL DISCHARGE NOTE Chart reviewed, care reviewed with primary team and at interdisciplinary rounds. Patient is medically ready for discharge to home with home services. [place] aware of discharge today with no IV ABX (IV ABX completed) Jovanny aware of patient discharge today, he is waiting, ramp cleared. Jovanny stated that he is already working with another CM with his wheelchair battery. He is also awareof patient coming home with script Ambulance transport Needs for Transition of Care: Plan for discharge is: Home w/ Services Outpatient Agency/Support Group Needs: Homecare agency Resp Needs: Home O2 Company: [employer] Location: Referred to [facility] Coordination, Referred to Home Health Agency Home Health Services: Registered Nurse, Physical Therapy, Occupational Therapy, Home Health Aide Agency Referrals & Follow-up Care: Contact information for follow-up Home Health & Hospice, [place] [address] Transportation: ambulance Wheelchair van/Ambulance? Ambulance Aware of financial cost Functional status prior to admission: Completely Dependent Home Environment: Others in the home: other (see comments) (Patient lives with his 2 care givers Annamarie and Jovanny. They have another client that lives with them as well. There are 2 cats and 2 dogs in the home). Current Living Arrangements: half-way. Accessibility Concerns:Ramp to enter the home with 1st floor living. Current Functional Ability: Completely Dependent DME used at home: wheelchair - power, lift device DME Needed at Discharge: n/a Patient is insured through: Primary Insurance: [place] Payor: [place] / Plan: [place] / Product Type: *No Product type* / Secondary Insurance: N/A Prescription Coverage: Yes This plan was formulated with input from patient, and team. All are in agreement with plan. CHRYSTAL Guzmán, RN, CM * Care Management - Lauren Carias RN - 11/09/2023 10:27 AM EST OFFICE OF CARE MANAGEMENT PROGRESS NOTE LOS: Hospital Day 15 days Chart reviewed, care reviewed with primary team and at interdisciplinary rounds. Patient continues to meet inpatient level of care related to medically ready today. IV ABX completed. Per MD discontinue OPAT/[facility], no need for IV ABX. Ambulance transport at 2pm. Has home O2 Referral to home health. Decision Maker: Self Functional status prior to admission: Completely Dependent Home Environment: Others in the home: other (see comments) (Patient lives with his 2 care givers Annamarie and Jovanny. They have another client that lives with them as well. There are 2 cats and 2 dogs in the home). Current Living Arrangements: half-way. Accessibility Concerns: Ramp to enter the home with 1st floor living. Current Functional Ability: Completely Dependent DME used at home: wheelchair - power, lift device DME Needed at Discharge: No Patient is insured through: Primary Insurance: [place] Pay[place]: [place] / Plan: [place] / Product Type: *No Product type* / Secondary Insurance: N/A Last Physical Therapy Recommendation: home with home health with (patient needs new wheelchair batteries) Last Occupational Therapy Recommendation: home with home health (& caregivers) with Plan for discharge is: Home w/ Services Outpatient Agency/Support Group Needs: Homecare agency Resp Needs: Home O2 Company: [employer] Location: Referred to [facility] Coordination, Referred to Home Health Agency Home Health Services: Registered Nurse, Physical Therapy, Occupational Therapy, Home Health Aide Agency [facility] [place] [address] PHONE: [phone] FAX: [phone] Transportation: ambulance Barriers to discharge: Discharge planning Plan going forward: Patient is discharging today, via ambulance. left Luz voicemail. Called to Care Management will continue to follow and assist with discharge planning and coordination of care asindicated. Anticipated Date of Discharge: 11/09/2023 CHRYSTAL Guzmán, RN, CM * Plan of Care - Lauri Camarillo RN - 11/08/2023 2:28 AM EST OUTCOME EVALUATION NOTE: OUTCOME SUMMARY: Patient remains on IV antibiotics post cath placement. Suprapubic catheter is working as intended without issues. Patient continues on nebulizer treatments with good effect. No significant events noted on telemetry and remains in NSR. Patient otherwise stable and VS within acceptable limits. PLAN MOVING FORWARD: Patient likely to discharge today when transportation available. INDIVIDUALIZED FALL PREVENTION INTERVENTIONS: Patient-specific fall risk factors per assessment: [current deficits]: Quadraplegia. Assistance [level of assistance required for transfers and ambulation]: Max assist. Supervision [direct monitoring required during toileting and ADLs]: Patient requires assistance with all ADLs. Surveillance [continuous indirect monitoring]: Purposeful rounding and continuous pulse oximetry (Masimo), remote cardiac monitoring. Patient-specific fall prevention interventions for sensory deficits provided, if applicable: [X] N/A CARE PLAN GOAL OUTCOME EVALUATION: * Plan of Care - Margarita Loomis RN - 11/07/2023 6:15 PM EST OUTCOME EVALUATION NOTE: OUTCOME SUMMARY: Patient was upset when I originally came in today. However, after discussing the present situation,patient was more understanding of the processes and was more cooperative. He is set to discharge tomorrow. PLAN MOVING FORWARD: Continue to monitor. INDIVIDUALIZED FALL PREVENTION INTERVENTIONS: call light in reach, bed in low position Patient-specific fall risk factors per assessment: none due to bedridden with paraplegia Assistance: times one assist to eat and hygiene, times 2 assist to move around Supervision: Independent Surveillance: Bed locked in low position, call marshall within reach, purposeful hourly rounding, clutter free environment Patient-specific fall prevention interventions for sensory deficits provided: yes CPG GOAL OUTCOME EVALUATION: Continue care plan as documented. * Plan of Care - Luz Walker RN - 11/07/2023 5:56 AM EST OUTCOME EVALUATION NOTE: OUTCOME SUMMARY: Pt A&Ox4 HTN 171/98 no symptoms other vss on ra. Paraplegic, q2 turns encouraged pt refused intermittently and implanted port in place. Suprapubic catheter remains in place. Ostomy appliance drained. Beck catheter care, CHG this shift. O2 sat study this shift, per RT pt desat for full 5 minutes before put on O2. Pt did not desat below 88% on RA for full 5minutes. Neb treatments as scheduled. Pt refusing incentive spirometer. PLAN MOVING FORWARD: q4 vs Neb treatments q2 turns Dc planning 11/07? NPO for possible bronch 11/07? INDIVIDUALIZED FALL PREVENTION INTERVENTIONS: Patient-specific fall risk factors per assessment: [current deficits]: Impaired mobility/ IV/Port/ catheter/ monitor Assistance [level of assistance required for transfers and ambulation]: 2xHands on assist in bed Supervision [direct monitoring required during toileting and ADLs]: 1-2xHands on assist in bed Surveillance [continuous indirect monitoring]: Rm near rn station/ Frequent rounding/ bed alarm Patient-specific fall prevention interventions for sensory deficits provided, if applicable: [X] Yes * Plan of Care - Luz Walker RN - 11/06/2023 8:09 PM EST Nighat Barrios arrived to 526 @2000 from icu. Oriented to room, call marshall within reach, educated on importance of using prior to getting OOB, AVSS, belongings updated in eDH, bed locked in low position, purposeful hourly rounding, bed/chair alarm on. * Care Management - Stayc Alexis RN - 11/06/2023 11:38 AM EST OFFICE OF CARE MANAGEMENT PROGRESS NOTE LOS: Hospital Day 12 days Chart reviewed, care reviewed with primary team and at interdisciplinary rounds. Patient continues to meet inpatient level of care related to: Patient was noted with increased oxygen needs over night. Decision Maker: Self Functional status prior to admission: Completely Dependent Home Environment: Others in the home: other (see comments) (Patient lives with his 2 care givers Annamarie and Jovanny. They have another client that lives with them as well. There are 2 cats and 2 dogs in the home). Current Living Arrangements: half-way. Accessibility Concerns: Ramp to enter the home with 1st floor living. Current Functional Ability: Completely Dependent DME used at home: wheelchair - power, lift device DME Needed at Discharge: No Patient is insured through: Primary Insurance: [place] Payor: [place] / Plan: [place] / Product Type: *No Product type* / Secondary Insurance: N/A Last Physical Therapy Recommendation: home with home health with (patient needs new wheelchair batteries) Last Occupational Therapy Recommendation: home with home health (& caregivers) with Plan for discharge is: Home w/ Services Outpatient Agency/Support Group Needs: Homecare agency Outpatient IV Medications - IV Access: PICC Location: Referred to [facility] Coordination, Referred to Home Health Agency Details: Home Home Health Services: Registered Nurse, Physical Therapy, Occupational Therapy, Home Health Aide Agency Referrals: [address] or [facility] [address] [facility] [address] PHONE: [phone] FAX: [phone] [facility] (Resp Supplies) Transportation: ambulance Barriers to discharge: Discharge planning *Home IV antibiotic therapy teach and supply delivery scheduled for Friday 11/03 Plan going forward: Patient is a potential discharge this weekend. He will need an ambulance ride home, [place] is coming to do the teach today, referral placed to [facility] for potential oxygen needs. Care Management will continue to follow and assist with discharge planning and coordinationof care as indicated. Anticipated Date of Discharge: 11/07/2023 Stacy JARRELL, RN CM Phone: [phone] Pager: [phone] * Care Management - Stacy Alexis RN - 11/06/2023 8:31 AM EST The Patient has been provided a list of Home Health Agencies/DME vendors which serve their preferred geographic area. A letter describing our affiliations was reviewed with them and they were educated about their right to choose where referrals are placed. Provided patient with [facility] Star Quality Rating for Home care hand out. Patient requests referral to : [facility] (Resp Supplies) Expected date of discharge: 11/06/2023. Referral routed to the Department Chairperson for matching with agency/vendor and to provide any required information. Stacy JARRELL RN CM Phone: [phone] Pager: [phone] * Plan of Care - Sal Yanes RN - 11/06/2023 6:31 AM EST OUTCOME EVALUATION NOTE: OUTCOME SUMMARY: For neuro exam see neuro flowsheet. Pt had one hypertensive pt was asymptomatic BP returned to normal limits without intervention. Patient was placed back on NC d/t desats and titrated up to 6L/NC. Suprapubic catheter remains in place. Ostomy appliance changed. PLAN MOVING FORWARD: QShift Neuro Maintain SBP>90/ MAP>65 Maintain SpO2>92% Continue to Encourage Side to Side turns Continue to Encourage/ Educate the importance of Pulmonary Hygiene Q4H I&O INDIVIDUALIZED FALL PREVENTION INTERVENTIONS: Patient-specific fall risk factors per assessment: [current deficits]: Impaired mobility/ IV/Port/ catheter/ monitor Assistance [level of assistance required for transfers and ambulation]: 2xHands on assist in bed Supervision [direct monitoring required during toileting and ADLs]: 1-2xHands on assist in bed Surveillance [continuous indirect monitoring]: ECG/ Pulse ox/ Rm near rn station/ Frequent rounding/ bed alarm Patient-specific fall prevention interventions for sensory deficits provided, if applicable: [X] Yes CPG GOAL OUTCOME EVALUATION: Problem: Fall Injury Risk Goal: Absence of Fall and Fall-Related Injury Outcome: Ongoing (Interventions Implemented as Appropriate) Problem: Adjustment to Illness (Sepsis/Septic Shock) Goal: Optimal Coping Outcome: Ongoing (Interventions Implemented as Appropriate) Problem: Bleeding (Sepsis/Septic Shock) Goal: Absence of Bleeding Outcome: Ongoing (Interventions Implemented as Appropriate) Problem: Glycemic Control Impaired (Sepsis/Septic Shock) Goal: Blood Glucose Level Within Desired Range Outcome: Ongoing (Interventions Implemented as Appropriate) Problem: Infection Progression (Sepsis) Goal: Absence of Infection Signs and Symptoms Outcome: Ongoing (Interventions Implemented as Appropriate) Problem: Anxiety Goal: Anxiety Reduction or Resolution Outcome: Ongoing (Interventions Implemented as Appropriate) Problem: Adult Inpatient Plan of Care Goal: Plan of Care Review Outcome: Ongoing (Interventions Implemented as Appropriate) Goal: Patient-Specific Goal (Individualized) Outcome: Ongoing (Interventions Implemented as Appropriate) Goal: Absence of Hospital-Acquired Illness or Injury Outcome: Ongoing (Interventions Implemented as Appropriate) Goal: Optimal Comfort and Wellbeing Outcome: Ongoing (Interventions Implemented as Appropriate) Problem: Infection Goal: Absence of Infection Signs and Symptoms Outcome: Ongoing (Interventions Implemented as Appropriate) Problem: Bleeding (Surgery Nonspecified) Goal: Absence of Bleeding Outcome: Ongoing (Interventions Implemented as Appropriate) Problem: Infection (Surgery Nonspecified) Goal: Absence of Infection Signs and Symptoms Outcome: Ongoing (Interventions Implemented as Appropriate) Problem: Impaired Wound Healing Goal: Optimal Wound Healing Outcome: Ongoing (Interventions Implemented as Appropriate) * Plan of Care - All Hernandez RN - 11/05/2023 6:10 PM EST OUTCOME EVALUATION NOTE: OUTCOME SUMMARY: Pt transitioned to RA. Good PO fluid intake. AUOP. No acute events. PLAN MOVING FORWARD: D/C tomorrow? INDIVIDUALIZED FALL PREVENTION INTERVENTIONS: Patient-specific fall risk factors per assessment: [current deficits]: Lines & drains, Assistance [level of assistance required for transfers and ambulation]: 2 assist Supervision [direct monitoring required during toileting and ADLs]: Hourly rounds Surveillance [continuous indirect monitoring]: [facility], hourly nurse rounding, alarms on audible, pt room near nurses station, frequent visual checks, ambu bag set up, on and in room Patient-specific fall prevention interventions for sensory deficits provided, if applicable: Yes CPG GOAL OUTCOME EVALUATION: Problem: Fall Injury Risk Goal: Absence of Fall and Fall-Related Injury Outcome: Ongoing (Interventions Implemented as Appropriate) Problem: Adjustment to Illness (Sepsis/Septic Shock) Goal: Optimal Coping Outcome: Ongoing (Interventions Implemented as Appropriate) Problem: Bleeding (Sepsis/Septic Shock) Goal: Absence of Bleeding Outcome: Ongoing (Interventions Implemented as Appropriate) Problem: Glycemic Control Impaired (Sepsis/Septic Shock) Goal: Blood Glucose Level Within Desired Range Outcome: Ongoing (Interventions Implemented as Appropriate) Problem: Infection Progression (Sepsis) Goal: Absence of Infection Signs and Symptoms Outcome: Ongoing (Interventions Implemented as Appropriate) Problem: Anxiety Goal: Anxiety Reduction or Resolution Outcome: Ongoing (Interventions Implemented as Appropriate) Problem: Adult Inpatient Plan of Care Goal: Plan of Care Review Outcome: Ongoing (Interventions Implemented as Appropriate) Goal: Patient-Specific Goal (Individualized) Outcome: Ongoing (Interventions Implemented as Appropriate) Goal: Absence of Hospital-Acquired Illness or Injury Outcome: Ongoing (Interventions Implemented as Appropriate) Goal: Optimal Comfort and Wellbeing Outcome: Ongoing (Interventions Implemented as Appropriate) Problem: Infection Goal: Absence of Infection Signs and Symptoms Outcome: Ongoing (Interventions Implemented as Appropriate) Problem: Bleeding (Surgery Nonspecified) Goal: Absence of Bleeding Outcome: Ongoing (Interventions Implemented as Appropriate) Problem: Infection (Surgery Nonspecified) Goal: Absence of Infection Signs and Symptoms Outcome: Ongoing (Interventions Implemented as Appropriate) Problem: Impaired Wound Healing Goal: Optimal Wound Healing Outcome: Ongoing (Interventions Implemented as Appropriate) * Consult Note - Elvi Irby RN - 11/05/2023 3:07 PM EST Images from the original note were not included. Certified Wound Care Nurse Note Situation: Asked to see Nighat Barrios by Vanesa Rojas RN for R ischium appers to have new stage1 injury. Background: eD-H notes reviewed for history, admitting diagnosis and active problem list. Per MD note History of Present Illness: Nighat Barrios is a 58 y.o. male with PMH of quadriplegia s/p fall from roof 10/26/2020, neurogenic bladder/bowel with SP tube and cystostomy, stage-4 left- sided ischial pressure ulcer followed by wound care, who now presents as an upgrade to the SICU for acute hypoxic respiratory failure. Wound Assessment and Care Provided: Patient seen this afternoon in IC10-A in bed, reason for visit explained to patient, permission received to assess skin. Patient was assisted to turn to the right side with help of RN. Mepilex Borders peeled back from the bilateral ischia and the sacrum. Scarringnoted on the sacrum and right ischium. Mepilex Borders placed back down. Right Ischium: Left ischium: Sacrum: Michael Score: 12 Last Pressure Ulcer Prevention assessment: Shift Pressure Injury Prevention Occiput: No Injury Thoracic Spine: No Injury Sacral: Redness, Blanchable Ischial - left: Existing Injury prior to this admission Ischial - right: Existing Injury Heel - left: Redness, Blanchable Heel - right: Redness, Blanchable Elbow - left: No Injury Elbow - right: No Injury Device Sites: BP Cuff, ECG Leads, O2 sat monitor, IV sites Other Sites: IDB, OStomy, SP cath Nutritional Status Wt Readings from Last 1 Encounters: 10/30/23 85.4 kg (188 lb 4.7 oz) Body mass index is 24.18 kg/m??. Labs Lab Results Component Value Date ALBUMIN 3.2 10/25/2023 HA1C 4.8 10/25/2023 WBC 8.6 11/05/2023 WBC 10.4 (H) 11/04/2023 WBC 9.7 (H) 11/04/2023 HGB 8.6 (L) 11/05/2023 HGB 8.8 (L) 11/04/2023 HGB 8.7 (L) 11/04/2023 HCT 25.7 (L) 11/05/2023 HCT 26.7 (L) 11/04/2023 HCT 26.3 (L) 11/04/2023 PLATELET 429 (H) 11/05/2023 PLATELET 393 (H) 11/04/2023 PLATELET 363 (H) 11/04/2023 Nutritional Intake Nutrition Diet/Nutrition Received: regular Diet/Feeding Assistance: assisted with feeding Diet/Feeding Tolerance: good Intake (%): 25% Nutrition Risk Screen: no indicators present Nutrition Interventions Fluid/Electrolyte Management: fluids provided Current bed: Progressa Assessment: Patient with a chronic stage 4 pressure injury to the left ischium and scar formation on the sacrumand right ischium. Patient being followed by outside wound clinic. Wound bed with pale pink hypergranulation tissue. Scar formation to periwound. Promogran was applied to this chronic wound due to chronicity Promogran used to maintain a physiologically moist microenvironment conducive to granulation and decrease of proteases causing a prolonged inflammatory phase of healing. Wound Treatment Recommendations: Promogran Yolanda: Nursing to change dressing every 3 days and as needed for drainage. 1. Cleanse the area with saline or wound cleanser and gauze. 2. Place Promogran (or promogran yolanda) to fit the wound bed. If the wound bed is dry moisten the Promogran with a few drops of saline. 3. Cover with mepilex border dressing. Pressure Injury Prevention: Sensory: Inspect feet, ankles [...] chair to 2 hour intervals. Use a Digital Lab chair cushion beneath patient at all times [...] by adjusting length of foot of bed. Total Care Connect Bed/Progressa Use a single flat sheet and a single air chux beneath patient. Use the max inflate and [place] feature to pull patient up in bed. Please turn and reposition at least every two hours. Use the turn assist feature to turn from side to side, and then place pillows lengthwise beneath patient to maintain a 30 degree side lying position. Please use the chair feature whenever possible rather than total lifting patient OOB. Friction and Shear: Reposition avoiding shear forces, utilizing maxislide, trendelenberg and max inflate (boost) feature on beds to assist with repositioning. Position hips at triangle icon on bed. Use skin prep on heels and elbows bid. Keep HOB less than or equal to 30 degrees. Use Nourishing Skin Cream after baths for extra dry skin. Follow hospital standard for pressure injury prevention and skin care. Refer to adult/pediatric pressure injury prevention job aid in the clinical policy library. Follow up: Wound Care will follow peripherally as an inpatient (will not see weekly) please notify Wound Care if there are issues with the plan of care. Follow up on discharge with Wound Clinic. Discussed plan with: RN: Durga - nitish RN Please contact ELVI IRBY RN on pager [phone] or the wound care team at [phone] or pager [phone] with skin and wound care concerns or questions. * Consult Note - Logan Escamilla MD - 11/05/2023 10:45 AM EST Internal Medicine Inpatient Consult Note Reason for Consult: Nighat Barrios is a 58 y.o. male who we are seeing today at the request of Yessi Lopes MD for evaluation of hypotension. HPI: Nighat Barrios is a 58 y.o. male with relevant PMH of paraplegia with indwelling SPT, prior nephrolithiasis with reported LL treatment 10 Days Post-Op s/p ureteral stent and bladder stone removal for urosepsis. Interval Events: - hypotensive overnight, responded to 2L IVF, lactate, lytes, Cr normal - placed on telemetry - orthostatics recommended - remains on Zosyn for urosepsis, WCC 10>8.6 s/p IVF, ID following, febrile episodes resolved since 11/02 but high temps intermittently - plan to push PO fluids today and if not then will consider bolus of IVF - This AM, pt says that he is frustrated with amount and frequency of inhalers needed. He says his breathing is not much worse than his baseline on 6L NC currently. He endorses some clear sputum production, but not significantly more than his baseline. PMHx: No past medical history on file. SurgHx: Past Surgical History: Procedure Laterality Date PRO CHANGE OF BLADDER TUBE, SIMPLE N/A 10/25/2023 CYSTOSTOMY TUBE, CHANGE (WRVU 0.9) performed by Selma Brian MD at [facility] MA[facility] OR PRO CYSTOSCOPY, INSERT URETERAL STENT Right 10/25/2023 CYSTO, STENT PLACEMENT (WRVU 2.82) performed by Selma Brian MD at [facility] MA[facility] OR PRO CYSTOSCOPY, REMV CALCULUS, SIMPLE N/A 10/25/2023 CYSTO, REMOVAL OF STENT, FOREIGN BODY OR CALCULUS, SIMPLE (WRVU 2.81) performed by Selma Brian MD at [facility] MA[facility] OR Vitals: Last value 24hr range T 37 ??C (98.6 ??F) Temp: [36.8 ??C (98.2 ??F)-37.2 ??C (99 ??F)] HR 83 Heart Rate: [73-96] BP 139/78 BP: (66-164)/(28-109) RR 16 Resp: [16-18] SpO2 96 % SpO2: [80 %-100 %] Physical Exam: General: NAD. HEENT: white sclera, CN 2-12 intact, EOMI intact CV: nl S1S2, RRR Resp: b/l rhonchi, No increased work of breathing on 6L NC. Abdomen, soft, NT, ND, + BS Extremities: 2+ pitting edema b/l, radial pulses intact b/l Skin: warm and dr Neuro: Moving upper extremities without issue. Labs: Last 3 Lytes Recent Labs 11/05/23 0417 11/04/23 1830 11/04/23 0155 NA 141 142 143 K 3.5 3.9 3.7 CL 105 107 107 CO2 27 23 26 BUN 8* 8* 8* CREATININE 0.57* 0.59* 0.60* Last 3 LFTs Recent Labs 10/25/23 1050 AST 40* ALT 27 ALKPHOS 54 BILITOT 0.3 Last CRP, SEDRATENo results for input(s): CRP, SEDRATE in the last 7068 hours. Last CBC Lab Results Component Value Date WBC 8.6 11/05/2023 RBC 2.78 (L) 11/05/2023 HGB 8.6 (L) 11/05/2023 HCT 25.7 (L) 11/05/2023 MCV 92.4 11/05/2023 MCH 30.9 11/05/2023 MCHC 33.5 11/05/2023 PLATELET 429 (H) 11/05/2023 RDWCV 13.8 11/05/2023 Studies: CXR with atelectasis b/l Lactate 1.4 He is currently on zoysn. Urine pansenstive pseudomonas + e fecalis Blood coag negative staph LVEF 65%, no valvular dx. ECHO sinus with ic RBBB Assessment: Nighat Barrios is a 58 y.o. male with relevant PMH of paraplegia with indwelling SPT, prior nephrolithiasis with reported LL treatment 10 Days Post-Op s/p ureteral stent and bladder stone removal for urosepsis. We are called today for evaluation as urology team has requested medicine transfer multiple days rachel row, and today request further evaluation and he had an episode of transient hypotension down to the systolics of the 60s that was fluid responsive. Lactate ordered at that time was 1.4, he has stable renal function.Reassuring normal ECHO, and urine cx that show appropriate Abx coverage. Reassuringly, his blood pressure improved overnight and he remains hemodynamically stable followinga 2 L IV fluid bolus overnight, which makes hypotension secondary to hypovolemia most likely etiology. Further evidence of this is that he is 4.6 L net negative since admission. He appears edematous on exam of his lower extremities, but his lack of JVD elevation, normal TTE, and lack of crackles onexam make me think volume overload is not contributing to his hypoxia. This could be dependent edema related to his paraplegia. For now, we are going to recommend increase p.o. intake with close monitoring of his I's and O's going forward to see if additional fluid boluses needed. ID is following for his prior urosepsis, but he has not fevered in a few days and does not appear septic on my exam. With his normal lactate and lack of fever, I think Zosyn is providing adequate coverage. Febrile episodes could be related to atelectasis. In regards to his mucous plugging and atelectasis, he has notbeen taking his DuoNebs, N-acetylcysteine, hypertonic saline as prescribed. Percussion vibration therapy ordered 3 times daily, but patient says he has only been using once per day. Robitussin not given in about a week. Looking at his chest x-ray, it appears relatively unchanged from prior. Since he does not seem motivated to try noninvasive therapy at this time, I will reach out to pulmonology to see if they want to consider bronchoscopy or if other less invasive measures could be offered thathe would agree to. Also, troponin elevation overnight without ACS findings on EKG and lack of cardiac symptoms reassuring. No need to further trend troponin. Recommendations: -Encourage increased PO intake, may require additional 500cc LR bolus if hypotensive going forward -Discussed with Pulmonology, they will talk to him today and place recs about ongoing conservative treatment vs bronchoscopy. -Encouraged RT therapies and inhaler treatment with patient, if he continues to refuse conservativetreatment would reach out to pulmonology -Zosyn per ID Patient will be discussed with Dr. Osman Patton. x Consult service will continue to follow patient. Recommendations are above, please page if further consultation required. Logan Escamilla MD Internal Medicine, PGY3 Pager: [phone] Associated attestation - Osman Patton MD - 11/05/2023 1:39 PM EST Attending Staff Consult Documentation Please see Dr. Escamilla note for details of the patient history of presentation and data. I have discussed, reviewed and agree with the documented history with ROS, social and family history, medication list, physical findings, labs/studies, Assessment and Plan of care. I have examined the patient myself and reviewed all labs and studies personally. Seem in afternoon while receiving a breathing treatment, otherwise had been weaned back to RA this morning with good saturations. He reports no symptoms with overnight hypotension which was fluid-responsive. Agree with encouragement of hydration, bolus IVF if necessary. He does not seem particularly engaged with bronchial hygiene measures but will defer to Pulm on whether inpatient vs. outpatient bronchoscopy is warranted. Osman Patton MD [facility] Medicine 11/05/2023 * Plan of Care - Sal Yanes RN - 11/05/2023 1:11 AM EST OUTCOME EVALUATION NOTE: OUTCOME SUMMARY: For neuro exam see neuro flowsheet. Patient received a 1L Lr bolus over 3hrs d/t Hypotension. Patient started shift on 6L/NC attempted to titrated down but d/t Spo2 and Shortness of breath O2 was titrated back up to 6L/NC. Pt refused 2000 Mucomyst provided education as to importance of nebulizer treatment. Additional educated pt the purpose of the Insentive spirometer pt declined. Pt placed back on tele per orders. 2G/IV Mg given one time. PLAN MOVING FORWARD: QShift Neuro Maintain SBP>90/ MAP>65 Maintain SpO2>92% Continue to Encourage Side to Side turns Continue to Encourage/ Educate the importance of Pulmonary Hygiene Q4H I&O INDIVIDUALIZED FALL PREVENTION INTERVENTIONS: Patient-specific fall risk factors per assessment: [current deficits]: Impaired mobility/ IV/Port/ catheter/ monitor Assistance [level of assistance required for transfers and ambulation]: 2xHands on assist in bed Supervision [direct monitoring required during toileting and ADLs]: 1-2xHands on assist in bed Surveillance [continuous indirect monitoring]: ECG/ Pulse ox/ Rm near rn station/ Frequent rounding/ bed alarm Patient-specific fall prevention interventions for sensory deficits provided, if applicable: [X] Yes CPG GOAL OUTCOME EVALUATION: Problem: Fall Injury Risk Goal: Absence of Fall and Fall-Related Injury 11/05/2023109 by Sal Yanes RN Outcome: Ongoing (Interventions Implemented as Appropriate) Problem: Adjustment to Illness (Sepsis/Septic Shock) Goal: Optimal Coping 11/05/2023109 by Sal Yanes RN Outcome: Ongoing (Interventions Implemented as Appropriate) Problem: Bleeding (Sepsis/Septic Shock) Goal: Absence of Bleeding 11/05/2023109 by Sal Yanes RN Outcome: Ongoing (Interventions Implemented as Appropriate) Problem: Glycemic Control Impaired (Sepsis/Septic Shock) Goal: Blood Glucose Level Within Desired Range 11/05/2023109 by Sal Yanes RN Outcome: Ongoing (Interventions Implemented as Appropriate) Problem: Infection Progression (Sepsis) Goal: Absence of Infection Signs and Symptoms 11/05/2023109 by Sal Yanes RN Outcome: Ongoing (Interventions Implemented as Appropriate) Problem: Anxiety Goal: Anxiety Reduction or Resolution 11/05/2023109 by Sal Yanes RN Outcome: Ongoing (Interventions Implemented as Appropriate) Problem: Adult Inpatient Plan of Care Goal: Plan of Care Review 11/05/2023109 by Sal Yanes RN Outcome: Ongoing (Interventions Implemented as Appropriate) Goal: Patient-Specific Goal (Individualized) 11/05/2023109 by Sal Yanes RN Outcome: Ongoing (Interventions Implemented as Appropriate) Goal: Absence of Hospital-Acquired Illness or Injury 11/05/2023109 by Sal Yanes RN Outcome: Ongoing (Interventions Implemented as Appropriate) Goal: Optimal Comfort and Wellbeing 11/05/2023109 by Sal Yanes RN Outcome: Ongoing (Interventions Implemented as Appropriate) Problem: Infection Goal: Absence of Infection Signs and Symptoms 11/05/2023109 by Sal Yanes RN Outcome: Ongoing (Interventions Implemented as Appropriate) Problem: Bleeding (Surgery Nonspecified) Goal: Absence of Bleeding 11/05/2023109 by Sal Yanes RN Outcome: Ongoing (Interventions Implemented as Appropriate) Problem: Infection (Surgery Nonspecified) Goal: Absence of Infection Signs and Symptoms 11/05/2023109 by Sal Yanes RN Outcome: Ongoing (Interventions Implemented as Appropriate) Problem: Impaired Wound Healing Goal: Optimal Wound Healing Outcome: Ongoing (Interventions Implemented as Appropriate) * Consult Note - Keny Singh MD - 11/04/2023 7:38 PM EST Internal Medicine Inpatient Consult Note Reason for Consult: Nighat Barrios is a 58 y.o. male who we are seeing today at the request of Yessi Lopes MD for evaluation of hypotension. HPI: Nighat Barrios is a 58 y.o. male with relevant PMH of paraplegia with indwelling SPT, prior nephrolithiasis with reported LL treatment 10 Days Post-Op s/p ureteral stent and bladder stone removal for urosepsis. We are called today for evaluation as urology team has requested medicine transfer multiple days rachel row, and today request further evaluation and he had an episode of transient hypotension down to the systolics of the 60s that was fluid responsive. Lactate ordered at that time was 1.4, he has stable renal function. He denies any history of seizures, denies confusion postictal. Denies any chest pain or discomfort.States he felt like he had blurry vision transiently and then passed out, quickly woke and was backat his baseline. He is not on tele at this time. He denies any fever chills changes to his resp status. PMHx: No past medical history on file. SurgHx: Past Surgical History: Procedure Laterality Date PRO CHANGE OF BLADDER TUBE, SIMPLE N/A 10/25/2023 CYSTOSTOMY TUBE, CHANGE (WRVU 0.9) performed by Selma Brian MD at [facility] OR PRO CYSTOSCOPY, INSERT URETERAL STENT Right 10/25/2023 CYSTO, STENT PLACEMENT (WRVU 2.82) performed by Selma Brian MD at [facility] OR PRO CYSTOSCOPY, REMV CALCULUS, SIMPLE N/A 10/25/2023 CYSTO, REMOVAL OF STENT, FOREIGN BODY OR CALCULUS, SIMPLE (WRVU 2.81) performed by Selma Brian MD at [facility] OR FamHx: SocHx: Tob: EtOH: Illicits: Vitals: Last value 24hr range T 37 ??C (98.6 ??F) Temp: [36.5 ??C (97.7 ??F)-37.8 ??C (100 ??F)] HR 96 Heart Rate: -- BP 100/65 BP: (66-162)/(28-97) RR 18 Resp: [16-18] SpO2 98 % SpO2: [80 %-100 %] Physical Exam: General: This is a 58 y/o M, well appearing, napping on arrival quick to wake up HEENT: white sclera, CN 2-12 intact, EOMI intact CV: nl S1S2, RRR Resp: b/l rhonchi, No increased work of breathing, not taking deep insp 6L NC -> dropped to 2L on my assessment Abdomen, soft, NT, ND, + BS Extremities: 2+ pitting edema b/l, radial pulses intact b/l Skin: warm and dr Neuro: did not assess Labs: Last 3 Lytes Recent Labs 11/04/23 1830 11/04/23 0155 11/03/23 0115 NA 142 143 140 K 3.9 3.7 3.8 CL 107 107 104 CO2 23 26 26 BUN 8* 8* 6* CREATININE 0.59* 0.60* 0.59* Last 3 LFTs Recent Labs 10/25/23 1050 AST 40* ALT 27 ALKPHOS 54 BILITOT 0.3 Last CRP, SEDRATENo results for input(s): CRP, SEDRATE in the last 7068 hours. Last CBC Lab Results Component Value Date WBC 10.4 (H) 11/04/2023 RBC 2.93 (L) 11/04/2023 HGB 8.8 (L) 11/04/2023 HCT 26.7 (L) 11/04/2023 MCV 91.1 11/04/2023 MCH 30.0 11/04/2023 MCHC 33.0 11/04/2023 PLATELET 393 (H) 11/04/2023 RDWCV 13.6 11/04/2023 Studies: CXR with atelectasis b/l Lactate 1.4 He is currently on zoysn. Urine pansenstive pseudomonas + e fecalis Blood coag negative staph LVEF 65%, no valvular dx. ECHO sinus with ic RBBB Assessment: Nighat Barrios is a 58 y.o. male with relevant PMH of paraplegia with indwelling SPT, prior nephrolithiasis with reported LL treatment 10 Days Post-Op s/p ureteral stent and bladder stone removal for urosepsis. We are called today for evaluation as urology team has requested medicine transfer multiple days rachel row, and today request further evaluation and he had an episode of transient hypotension down to the systolics of the 60s that was fluid responsive. Lactate ordered at that time was 1.4, he has stable renal function. Reassuring normal ECHO, and urine cx that show appropriate Abx coverage. DDX: seizure, arrhythmia, valve dx, hypovolemia Does not sound c/w a seizure given lack of post ictal state + hypotension. ECHO without valvular dxdone recently, no hx of arrhythmia but not on tele at time, would place back on tele. Hypovolemia is most likely given fluid responsiveness. Please check orthostatics. In terms of other issues. Do not suspect sepsis given his clinical appearance, normal lactate, lack of tachycardia, fevers, if other VS changes would reevaluate. WBC is trending upwards would continue to trend. Otherwise for CXR with atelectasis b/l, would recommended continued pulmonary toilet, PT, and incentive spirometry. Pulm is following and I agree with their previous input. He does have 2+ REY, but lungs more c/w atelectasis, and normal echo 1 week prior. Would argue he is more dry at this time, and avoid diuresis if anything err on the side of giving fluid. Recommendations: -Place patient on telemetry -reasonable to check trops -check orthostatics, give IVF if he has + orthostatics -abx per primary team/ID -low threshold for reassessment if vital sign changes -incentive spirometer, lung PT per pulm. -reassess need for baclofen and ativan. Discussed with overnight team Patient will be discussed with Dr. Lang x Consult service will continue to follow patient. Recommendations are above, please page if further consultation required. Keny Singh MD Internal Medicine, PGY3 Pager: [phone] Associated attestation - Srinivasan Lang MD - 11/05/2023 1:50 AM EST Attending Attestation and Certification Please see Keny Singh MD's note for details of the patient history of presentation and data. I have discussed, reviewed and agree with the documented History, Physical findings, Assessment and Plan of care. I have examined the patient myself and personally reviewed all studies. The patient was seen in IC-10 room in presence of patient's RN. His MAP was 69 mmHg when I saw him and he denied any headache, lightheadedness, chest or abdominal pain. * Plan of Care - Bella Gunter RN - 11/04/2023 6:35 PM EST OUTCOME EVALUATION NOTE: OUTCOME SUMMARY: AAOx4. 6L/NC. No TELE. Pt placed on RA at 13:30, 14:30 per provider request, O2 dropped to low 90's-80's. Pt further reported SOB. Placed back on 4L NC, provider aware. 17:40 pt reported GUEVARA, increased work of breathing, anxiety. PRN tylenol and ativan given. Suctioning and nebulizer given by RT. Ptplaced on 6L NC. MD notified, at bedside. Pt reports feeling better after medications, however repeat BP's w/ MAPS in 50's, SBP 70's. Labs drawn, ECG done, 1L LR given per MD request at bedside. Eating 100% of meals. Bowel movement x1 per rectum. Ostomy draining w/o complications. Denies pain. PLAN MOVING FORWARD: Q shift neuro Lift OOB CARE PLAN GOAL OUTCOME EVALUATION: Problem: Fall Injury Risk Goal: Absence of Fall and Fall-Related Injury Outcome: Ongoing (Interventions Implemented as Appropriate) Problem: Adjustment to Illness (Sepsis/Septic Shock) Goal: Optimal Coping Outcome: Ongoing (Interventions Implemented as Appropriate) Problem: Bleeding (Sepsis/Septic Shock) Goal: Absence of Bleeding Outcome: Ongoing (Interventions Implemented as Appropriate) Problem: Glycemic Control Impaired (Sepsis/Septic Shock) Goal: Blood Glucose Level Within Desired Range Outcome: Ongoing (Interventions Implemented as Appropriate) Problem: Infection Progression (Sepsis) Goal: Absence of Infection Signs and Symptoms Outcome: Ongoing (Interventions Implemented as Appropriate) Problem: Anxiety Goal: Anxiety Reduction or Resolution Outcome: Ongoing (Interventions Implemented as Appropriate) Problem: Adult Inpatient Plan of Care Goal: Plan of Care Review Outcome: Ongoing (Interventions Implemented as Appropriate) Goal: Patient-Specific Goal (Individualized) Outcome: Ongoing (Interventions Implemented as Appropriate) Goal: Absence of Hospital-Acquired Illness or Injury Outcome: Ongoing (Interventions Implemented as Appropriate) Goal: Optimal Comfort and Wellbeing Outcome: Ongoing (Interventions Implemented as Appropriate) Problem: Infection Goal: Absence of Infection Signs and Symptoms Outcome: Ongoing (Interventions Implemented as Appropriate) Problem: Bleeding (Surgery Nonspecified) Goal: Absence of Bleeding Outcome: Ongoing (Interventions Implemented as Appropriate) Problem: Infection (Surgery Nonspecified) Goal: Absence of Infection Signs and Symptoms Outcome: Ongoing (Interventions Implemented as Appropriate) * Plan of Care - Bella Gunter RN - 11/03/2023 6:10 PM EST OUTCOME EVALUATION NOTE: OUTCOME SUMMARY: AAOx4, no TELE, on 6L/ NC. Pt declined turns at 10:00. Declined bath at 12:00 One bowel movement per rectum. Ostomy draining w/o complications. Denies pain. PLAN MOVING FORWARD: Q shift neuro Lift OOB Map >65/ SBP <160 CARE PLAN GOAL OUTCOME EVALUATION: Problem: Fall Injury Risk Goal: Absence of Fall and Fall-Related Injury Outcome: Ongoing (Interventions Implemented as Appropriate) Problem: Adjustment to Illness (Sepsis/Septic Shock) Goal: Optimal Coping Outcome: Ongoing (Interventions Implemented as Appropriate) Problem: Bleeding (Sepsis/Septic Shock) Goal: Absence of Bleeding Outcome: Ongoing (Interventions Implemented as Appropriate) Problem: Glycemic Control Impaired (Sepsis/Septic Shock) Goal: Blood Glucose Level Within Desired Range Outcome: Ongoing (Interventions Implemented as Appropriate) Problem: Infection Progression (Sepsis) Goal: Absence of Infection Signs and Symptoms Outcome: Ongoing (Interventions Implemented as Appropriate) Problem: Anxiety Goal: Anxiety Reduction or Resolution Outcome: Ongoing (Interventions Implemented as Appropriate) Problem: Adult Inpatient Plan of Care Goal: Plan of Care Review Outcome: Ongoing (Interventions Implemented as Appropriate) Goal: Patient-Specific Goal (Individualized) Outcome: Ongoing (Interventions Implemented as Appropriate) Goal: Absence of Hospital-Acquired Illness or Injury Outcome: Ongoing (Interventions Implemented as Appropriate) Goal: Optimal Comfort and Wellbeing Outcome: Ongoing (Interventions Implemented as Appropriate) Goal: Readiness for Transition of Care Outcome: Ongoing (Interventions Implemented as Appropriate) * Care Management - Stacy Alexis RN - 11/03/2023 1:20 PM EST OFFICE OF CARE MANAGEMENT PROGRESS NOTE LOS: Hospital Day 9 days Chart reviewed, care reviewed with primary team and at interdisciplinary rounds. Patient continues to meet inpatient level of care related to: Patient continues to have increased oxygen needs. Requiring 6L and at times needing to go back on high flow. Abx plan in place at this time Decision Maker: Self Functional status prior to admission: Completely Dependent Home Environment: Others in the home: other (see comments) (Patient lives with his 2 care givers Annamarie and Jovanny. They have another client that lives with them as well. There are 2 cats and 2 dogs in the home). Current Living Arrangements: half-way. Accessibility Concerns: Ramp to enter the home with 1st floor living. Current Functional Ability: Completely Dependent DME used at home: wheelchair - power, lift device DME Needed at Discharge: No Patient is insured through: Primary Insurance: [place] Payor: [place] / Plan: [place] / Product Type: *No Product type* / Secondary Insurance: N/A Last Physical Therapy Recommendation: home with home health with (patient needs new wheelchair batteries) Last Occupational Therapy Recommendation: home with home health (& caregivers) with Plan for discharge is: Home w/ Services Outpatient Agency/Support Group Needs: Homecare agency Outpatient IV Medications - IV Access: PICC Location: Referred to [facility] Coordination, Referred to Home Health Agency Details: Home Home Health Services: Registered Nurse, Physical Therapy, Occupational Therapy, Home Health Aide Agency Referrals: [address] or [facility] [place] [address] PHONE: [phone] FAX: [phone] Transportation: ambulance Barriers to discharge: Discharge planning *Home IV antibiotic therapy teach and supply delivery scheduled for Friday 11/03 Plan going forward: when able patient will discharge home with his caregivers, [facility] for IV abx, [facility]. Care Management will continue to follow and assist with discharge planning and coordination of care as indicated. Anticipated Date of Discharge: 11/10/2023 Stacy JARRELL, RN Phone: [phone] Pager: [phone] * Plan of Care - Michael Segovia RN - 11/03/2023 6:31 AM EST Problem: Adult Inpatient Plan of Care Goal: Optimal Comfort and Wellbeing Outcome: Ongoing (Interventions Implemented as Appropriate) Goal: Readiness for Transition of Care Outcome: Ongoing (Interventions Implemented as Appropriate) OUTCOME EVALUATION NOTE: OUTCOME SUMMARY: Pt alert and oriented x4 follows commands. On HFNC 40/40 and 6L NC overnight. No desats. PLAN MOVING FORWARD: Goals of care * Plan of Care - Lawrence Juares RN - 11/02/2023 5:40 PM EST OUTCOME EVALUATION NOTE: OUTCOME SUMMARY: Neuro check unchanged, BP WDL. Patient remained on HFNC for majority of shift until he was demanding it be removed due to discomfort. RN explained the necessity to keep HF on due to his desaturations. After a prolonged discussion between RN and patient, the patient agreed to try HF mask which he had previously been refusing. Team made aware and RN requested that they meet with patient tomorrow todiscuss the plan and patient's goals of care. Continues to have adequate UOP via suprapubic catheter. Had one BM via rectum and only passed flatus through his ostomy. PLAN MOVING FORWARD: HFNC/HF mask Q shift neuro Goals of care/plan meeting 1/2? * Consult Note - Jeronimo Lin MD - 11/02/2023 12:59 PM EST Images from the original note were not included. INITIAL PULMONOLOGY CONSULTATION NOTE SECTION OF PULMONARY/CRITICAL CARE MEDICINE Reason for Consultation: hypoxemia, mucus plugging, LLL collapse History of present illness: Mr. Barrios is a 58-year-old gentleman with history of paraplegia, baseline immobility with recent wheelchair dysfunction admitted to urology for nephrolithiasis, stenting, bladder stone infection. Pulmonary is consulted for worsening hypoxemia in the setting of left lower lobe mucous plugging and collapse on CT scan. Mr. Barrios is upset with the duration of his hospitalization to this point, he is frustrated by his inability to discharge home. He has had fluctuating oxygen requirements most recently up to 100% on high flow nasal cannula briefly this morning now weaned down to 30% high flow nasal cannula. He he wasyesterday on regular nasal cannula approximately 4 L most of the day. He denies prior respiratory issues, he is a former smoker quit 20 years ago. Has never had a diagnosis of asthma or COPD and does not use any inhalers at home. He denies any shortness of breath at baseline. He does not feel that he has trouble raising his sputum generally at home. Review of Systems: A 12 point ROS was negative aside from as listed in the HPI. Past Medical/Surgical History: Paraplegia Nephrolithiasis Septic shock resolved Outpatient medications: Inpatient medications: Acetylcysteine every 4 hours nebulizers Baclofen Depakote Docusate DuoNebs every 4 hours Zosyn since 10/26, 2 days of cefepime prior to that Lyrica Senna Allergies: Allergies Allergen Reactions Hydromorphone Other (See Comments) Daughter states makes him irritable and has hallucinations Objective: Last value Range last 24 hrs Temperature Temp: 36.9 ??C (98.4 ??F) Temp: [36.9 ??C (98.4 ??F)-38.1 ??C (100.6 ??F)] Heart Rate Heart Rate: 96 Heart Rate: -- Blood Pressure BP: 132/81 BP: (75-163)/(43-114) Respiratory Rate Resp: 18 Resp: [18-24] SpO2 SpO2: 94 % SpO2: [82 %-98 %] Admit Weight 81.65 kg General: Laying in bed, irritable, no distress Pulmonary/Chest: Diffuse coarse rhonchi, ineffectual cough Cardiovascular: Regular, no murmurs Abdomen: Soft, nontender Labs: Notable for WBC 10.2 Hemoglobin 8.8 Platelets 316 BMP within normal limits Blood cultures no growth to date except for 1 coag negative staph on 10/30, repeat cultures negative Urine culture with Pseudomonas aeruginosa and Enterococcus faecalis Diagnostics: CT chest 10/28: Left lower lobe mucous plugging and partial collapse lung parenchyma otherwise unremarkable Chest x-ray 11/01 with persistent left lower lobe opacity Assessment: 58-year-old gentleman with history of paraplegia admitted to the hospital with sepsis in the setting of nephrolithiasis, resolving except now with persistent and increasing oxygen requirement. While I was in the room with him his oxygen saturation fluctuated between 87% and 96%, when asked him to cough he clearly had underlying mucus burden which she was unable to clear. I think the most likely explanation for his hypoxemia is intermittent fluctuating mucous obstruction the worst of which is evidenced in his left lower lobe obstruction seen on the CT scan. While we could certainly do bronchoscopy in the absence of any mass or other cause of this, it is unlikely to be a long-term solution. He is somewhat frustrated by the hospital course and has been intermittently willing to participate in airway clearance. I did discuss with RT who has been doing CoughAssist with vibration with him. He has also started on hypertonic saline today and is getting DuoNebs. I explained to Mr. Barrios the reasons for the interventions and the reasons why the bronchoscopy is unlikely to be a panacea. He remains somewhat frustrated. Will require ongoing discussions to align him with the plans of care. Any increased activity that he is able to do with PT will likely to be helpful as well, getting him upright in bed and in a position where he can be more effectual with his cough. I do not have any reason to suspect a mass or foreign body as a nidus for his mucous obstruction inthe left lower lobe as he presented on room air and without any complaints from a respiratory standpoint. Recommendations: As above Pulmonary will continue to follow, thank you for this consult This case and above stated plan discussed with the primary team. Jeronimo Lin MD, PhD Pulmonary/Critical Care Staff Physician Pager: [phone] * Plan of Care - Michael Segovia RN - 11/02/2023 5:46 AM EST Problem: Adult Inpatient Plan of Care Goal: Optimal Comfort and Wellbeing Outcome: Ongoing (Interventions Implemented as Appropriate) OUTCOME EVALUATION NOTE: OUTCOME SUMMARY: Pt A/O x4 and following commands. Lowers flaccid with LLE tingling. No tele ordered, radial pulse regular. Hypotensive at points when sleeping, rise in BP when awake. At 0500 reported difficulty breathing, placed on HFNC 40L 100%, MD paged. 2 bowel movements per rectum, md aware. Able to wean back to HFNC 45 L 50%. Denies pain, PRN ativan and tylenol given. 15 mmol sodium phos given. PLAN MOVING FORWARD: MAP >65 * Plan of Care - Lawrence Juares, SWETHA - 11/01/2023 5:16 PM EST OUTCOME EVALUATION NOTE: OUTCOME SUMMARY: Patient A/Ox4. Neuro exam unchanged. Patient had increasing FiO2 need, hypotension and was seeing stars in afternoon. Team notified and patient was given 1L bolus of LR, EKG taken, labs and blood cultures sent. Issues resolved after bolus and FiO2 increase. SBP goal changed to <180. RT performed percussion to loosen secretions. Patient had brown stooling event via rectum. Colostomy remains WDL. Voiding adequately via suprapubic catheter. PLAN MOVING FORWARD: SBP <180 Neuro q shift Caregiver d/c teaching Friday 11/03? * Plan of Care - Chrissy Genao RN - 11/01/2023 6:24 AM EST OUTCOME EVALUATION NOTE: OUTCOME SUMMARY: Patient continues on HFNC, oxygen weaned as tolerated. Weak but productive cough, lung sounds coarse. Afebrile. AUOP via SP cath. Flatus from ostomy, moderate loose brown bowel movement from anus. PRN Ativan x1, tylenol x1 per patient request. Pressure injury dressings C/D/I. Abx administered. Safety maintained. PLAN MOVING FORWARD: Pulmonary toilet Anxiety mangement IV abx AM labs MAP >65, SBP 90-160 Neuro q shift Pressure injury wound care Activity/OOB via lift INDIVIDUALIZED FALL PREVENTION INTERVENTIONS: Patient-specific fall risk factors per assessment: [current deficits]: ICU environment, medications, lines/drains Assistance [level of assistance required for transfers and ambulation]: Assist x2 Supervision [direct monitoring required during toileting and ADLs]: Assist x2 Surveillance [continuous indirect monitoring]: ICU monitoring CPG GOAL OUTCOME EVALUATION: Problem: Fall Injury Risk Goal: Absence of Fall and Fall-Related Injury 11/01/2023540 by Chrissy Genao RN Outcome: Ongoing (Interventions Implemented as Appropriate) Problem: Adjustment to Illness (Sepsis/Septic Shock) Goal: Optimal Coping 11/01/2023540 by Chrissy Genao RN Outcome: Ongoing (Interventions Implemented as Appropriate) Problem: Bleeding (Sepsis/Septic Shock) Goal: Absence of Bleeding 11/01/2023540 by Chrissy Genao RN Outcome: Ongoing (Interventions Implemented as Appropriate) Problem: Glycemic Control Impaired (Sepsis/Septic Shock) Goal: Blood Glucose Level Within Desired Range 11/01/2023540 by Chrissy Genao RN Outcome: Ongoing (Interventions Implemented as Appropriate) Problem: Infection Progression (Sepsis) Goal: Absence of Infection Signs and Symptoms 11/01/2023540 by Chrissy Genao RN Outcome: Ongoing (Interventions Implemented as Appropriate) Problem: Nutrition Impaired (Sepsis/Septic Shock) Goal: Optimal Nutrition Intake 11/01/2023540 by Chrissy Genao RN Outcome: Ongoing (Interventions Implemented as Appropriate) Problem: Pain Acute Goal: Acceptable Pain Control and Functional Ability 11/01/2023540 by Chrissy Genao RN Outcome: Ongoing (Interventions Implemented as Appropriate) Problem: Anxiety Goal: Anxiety Reduction or Resolution 11/01/2023540 by Chrissy Genao RN Outcome: Ongoing (Interventions Implemented as Appropriate) Problem: Adult Inpatient Plan of Care Goal: Plan of Care Review 11/01/2023540 by Chrissy Genao RN Outcome: Ongoing (Interventions Implemented as Appropriate) Goal: Patient-Specific Goal (Individualized) 11/01/2023540 by Chrissy Genao RN Outcome: Ongoing (Interventions Implemented as Appropriate) Goal: Absence of Hospital-Acquired Illness or Injury 11/01/2023 05 by Chrissy Genao RN Outcome: Ongoing (Interventions Implemented as Appropriate) Goal: Optimal Comfort and Wellbeing 11/01/2023540 by Chrissy Genao RN Outcome: Ongoing (Interventions Implemented as Appropriate) Goal: Readiness for Transition of Care 11/01/2023 05 by Chrissy Genao RN Outcome: Ongoing (Interventions Implemented as Appropriate) Problem: Infection Goal: Absence of Infection Signs and Symptoms 11/01/2023540 by Chrissy Genao RN Outcome: Ongoing (Interventions Implemented as Appropriate) Problem: Bleeding (Surgery Nonspecified) Goal: Absence of Bleeding 11/01/2023540 by Chrissy Genao RN Outcome: Ongoing (Interventions Implemented as Appropriate) Problem: Bowel Motility Impaired (Surgery Nonspecified) Goal: Effective Bowel Elimination 11/01/2023540 by Chrissy Genao RN Outcome: Ongoing (Interventions Implemented as Appropriate) Problem: Infection (Surgery Nonspecified) Goal: Absence of Infection Signs and Symptoms 11/01/2023540 by Chrissy Genao RN Outcome: Ongoing (Interventions Implemented as Appropriate) Problem: Ongoing Anesthesia Effects (Surgery Nonspecified) Goal: Anesthesia/Sedation Recovery 11/01/2023540 by Chrissy Genao RN Outcome: Ongoing (Interventions Implemented as Appropriate) Problem: Pain (Surgery Nonspecified) Goal: Acceptable Pain Control 11/01/2023540 by Chrissy Genao RN Outcome: Ongoing (Interventions Implemented as Appropriate) Problem: Postoperative Nausea and Vomiting (Surgery Nonspecified) Goal: Nausea and Vomiting Relief 11/01/2023540 by Chrissy Genao RN Outcome: Ongoing (Interventions Implemented as Appropriate) Problem: Postoperative Urinary Retention (Surgery Nonspecified) Goal: Effective Urinary Elimination 11/01/2023540 by Chrissy Genao RN Outcome: Ongoing (Interventions Implemented as Appropriate) * Care Management - Felipe Valdez RN - 10/31/2023 12:06 PM ESTSummary: Planning for discharge home Friday 11/03 on home IV antibiotic therapy OFFICE OF CARE MANAGEMENT PROGRESS NOTE LOS: Hospital Day 6 days Chart reviewed, care reviewed with primary team. Patient continues to meet inpatient level of care related to: awaiting home IV antibiotic therapy coordination. Decision Maker: Self Functional status prior to admission: Completely Dependent Home Environment: Others in the home: other (see comments) (Patient lives with his 2 care givers Annamarie and Jovanny. They have another client that lives with them as well. There are 2 cats and 2 dogs in the home). Current Living Arrangements: half-way. Accessibility Concerns: Ramp to enter the home with 1st floor living. Current Functional Ability: Completely Dependent, Assistive Person and Equipment DME used at home: wheelchair - power, lift device DME Needed at Discharge: No Patient is insured through: Primary Insurance: [place] Pay[place] / Plan: [place] / Product Type: *No Product type* / Secondary Insurance: N/A Last Physical Therapy Recommendation: home with home health with (patient needs new wheelchair batteries) Last Occupational Therapy Recommendation: home with home health (& caregivers) Plan for discharge is: Home w/ Services Outpatient Agency/Support Group Needs: Homecare agency Outpatient IV Medications - IV Access: PICC Location: Referred to [facility] Coordination, Referred to Home Health Agency Details: Home Home Health Services: Registered Nurse, Physical Therapy, Occupational Therapy, Home Health Aide Agency Referrals: [address] or [facility] [address] [facility] [address] PHONE: [phone] FAX: [phone] Transportation: ambulance Barriers to discharge: Discharge planning *Home IV antibiotic therapy teach and supply delivery scheduled for Friday 11/03 Plan going forward: Coordinate home IV antibiotic needs. Care Management will continue to follow and assist with discharge planning and coordination of care as indicated. Anticipated Date of Discharge: 11/03/2023 * Plan of Care - Chrissy Genao RN - 10/31/2023 6:41 AM EST OUTCOME EVALUATION NOTE: OUTCOME SUMMARY: Patient requiring 2LNC overnight to maintain oxygen sats >92%. Productive cough. Afebrile. AUOP via SP cath. Minimal output from ostomy. PRN Ativan x2, tylenol x1 per patient request. Pressure injury dressings C/D/I. Abx administered. Mag replaced. Safety maintained. PLAN MOVING FORWARD: Pulmonary toilet Anxiety mangement PO abx AM labs MAP >65/SBP 90-160 Neuro q shift Pressure injury wound care Activity/OOB via lift INDIVIDUALIZED FALL PREVENTION INTERVENTIONS: Patient-specific fall risk factors per assessment: [current deficits]: ICU environment, medications, lines/drains Assistance [level of assistance required for transfers and ambulation]: Assist x2 Supervision [direct monitoring required during toileting and ADLs]: Assist x2 Surveillance [continuous indirect monitoring]: Pulse Oximetry CPG GOAL OUTCOME EVALUATION: Problem: Fall Injury Risk Goal: Absence of Fall and Fall-Related Injury Outcome: Ongoing (Interventions Implemented as Appropriate) Problem: Adjustment to Illness (Sepsis/Septic Shock) Goal: Optimal Coping Outcome: Ongoing (Interventions Implemented as Appropriate) Problem: Bleeding (Sepsis/Septic Shock) Goal: Absence of Bleeding Outcome: Ongoing (Interventions Implemented as Appropriate) Problem: Glycemic Control Impaired (Sepsis/Septic Shock) Goal: Blood Glucose Level Within Desired Range Outcome: Ongoing (Interventions Implemented as Appropriate) Problem: Infection Progression (Sepsis) Goal: Absence of Infection Signs and Symptoms Outcome: Ongoing (Interventions Implemented as Appropriate) Problem: Nutrition Impaired (Sepsis/Septic Shock) Goal: Optimal Nutrition Intake Outcome: Ongoing (Interventions Implemented as Appropriate) Problem: Pain Acute Goal: Acceptable Pain Control and Functional Ability Outcome: Ongoing (Interventions Implemented as Appropriate) Problem: Anxiety Goal: Anxiety Reduction or Resolution Outcome: Ongoing (Interventions Implemented as Appropriate) Problem: Adult Inpatient Plan of Care Goal: Plan of Care Review Outcome: Ongoing (Interventions Implemented as Appropriate) Goal: Patient-Specific Goal (Individualized) Outcome: Ongoing (Interventions Implemented as Appropriate) Goal: Absence of Hospital-Acquired Illness or Injury Outcome: Ongoing (Interventions Implemented as Appropriate) Goal: Optimal Comfort and Wellbeing Outcome: Ongoing (Interventions Implemented as Appropriate) Goal: Readiness for Transition of Care Outcome: Ongoing (Interventions Implemented as Appropriate) Problem: Infection Goal: Absence of Infection Signs and Symptoms Outcome: Ongoing (Interventions Implemented as Appropriate) Problem: Bleeding (Surgery Nonspecified) Goal: Absence of Bleeding Outcome: Ongoing (Interventions Implemented as Appropriate) Problem: Bowel Motility Impaired (Surgery Nonspecified) Goal: Effective Bowel Elimination Outcome: Ongoing (Interventions Implemented as Appropriate) Problem: Infection (Surgery Nonspecified) Goal: Absence of Infection Signs and Symptoms Outcome: Ongoing (Interventions Implemented as Appropriate) Problem: Ongoing Anesthesia Effects (Surgery Nonspecified) Goal: Anesthesia/Sedation Recovery Outcome: Ongoing (Interventions Implemented as Appropriate) Problem: Pain (Surgery Nonspecified) Goal: Acceptable Pain Control Outcome: Ongoing (Interventions Implemented as Appropriate) Problem: Postoperative Nausea and Vomiting (Surgery Nonspecified) Goal: Nausea and Vomiting Relief Outcome: Ongoing (Interventions Implemented as Appropriate) Problem: Postoperative Urinary Retention (Surgery Nonspecified) Goal: Effective Urinary Elimination Outcome: Ongoing (Interventions Implemented as Appropriate) * Plan of Care - Denae Winston RN - 10/30/2023 6:55 PM EST OUTCOME EVALUATION NOTE: OUTCOME SUMMARY: Pt alert and oriented, Follows commands, move BUE, flaccid BLE. Ativan requested at 0830, 1430, [id number]. He reports having better sleep at night if his scheduled and PRN medication medications are given. VSS, 0800 Tmax 38.4, temp taken again 0840 at 36.7. Blood cultures drawn. Lung sounds are coarse. Pt has a congested and productive cough. He was educated on the importance of his scheduled breat madalyn treatments. Late afternoon he needed 1-2L nasal canula with rest. At 1830 he no longer needed O2. He has a regular diet, 1 assist with feeding. Suprabupic cath in place with adequate output. Colostomy produced light brown liquid stool and gas. CHG bath given, wound dressings changed. PLAN MOVING FORWARD: AM labs Qshift neuro Pain/anxiety control Sleep at night Q2 turns Iv ABX CPG GOAL OUTCOME EVALUATION: Problem: Fall Injury Risk Goal: Absence of Fall and Fall-Related Injury Outcome: Ongoing (Interventions Implemented as Appropriate) Problem: Adjustment to Illness (Sepsis/Septic Shock) Goal: Optimal Coping Outcome: Ongoing (Interventions Implemented as Appropriate) Problem: Bleeding (Sepsis/Septic Shock) Goal: Absence of Bleeding Outcome: Ongoing (Interventions Implemented as Appropriate) Problem: Glycemic Control Impaired (Sepsis/Septic Shock) Goal: Blood Glucose Level Within Desired Range Outcome: Ongoing (Interventions Implemented as Appropriate) Problem: Infection Progression (Sepsis) Goal: Absence of Infection Signs and Symptoms Outcome: Ongoing (Interventions Implemented as Appropriate) Problem: Nutrition Impaired (Sepsis/Septic Shock) Goal: Optimal Nutrition Intake Outcome: Ongoing (Interventions Implemented as Appropriate) Problem: Pain Acute Goal: Acceptable Pain Control and Functional Ability Outcome: Ongoing (Interventions Implemented as Appropriate) Problem: Anxiety Goal: Anxiety Reduction or Resolution Outcome: Ongoing (Interventions Implemented as Appropriate) Problem: Adult Inpatient Plan of Care Goal: Plan of Care Review Outcome: Ongoing (Interventions Implemented as Appropriate) Goal: Patient-Specific Goal (Individualized) Outcome: Ongoing (Interventions Implemented as Appropriate) Goal: Absence of Hospital-Acquired Illness or Injury Outcome: Ongoing (Interventions Implemented as Appropriate) Goal: Optimal Comfort and Wellbeing Outcome: Ongoing (Interventions Implemented as Appropriate) Goal: Readiness for Transition of Care Outcome: Ongoing (Interventions Implemented as Appropriate) Problem: Infection Goal: Absence of Infection Signs and Symptoms Outcome: Ongoing (Interventions Implemented as Appropriate) Problem: Bleeding (Surgery Nonspecified) Goal: Absence of Bleeding Outcome: Ongoing (Interventions Implemented as Appropriate) Problem: Bowel Motility Impaired (Surgery Nonspecified) Goal: Effective Bowel Elimination Outcome: Ongoing (Interventions Implemented as Appropriate) Problem: Infection (Surgery Nonspecified) Goal: Absence of Infection Signs and Symptoms Outcome: Ongoing (Interventions Implemented as Appropriate) Problem: Ongoing Anesthesia Effects (Surgery Nonspecified) Goal: Anesthesia/Sedation Recovery Outcome: Ongoing (Interventions Implemented as Appropriate) Problem: Pain (Surgery Nonspecified) Goal: Acceptable Pain Control Outcome: Ongoing (Interventions Implemented as Appropriate) Problem: Postoperative Nausea and Vomiting (Surgery Nonspecified) Goal: Nausea and Vomiting Relief Outcome: Ongoing (Interventions Implemented as Appropriate) Problem: Postoperative Urinary Retention (Surgery Nonspecified) Goal: Effective Urinary Elimination Outcome: Ongoing (Interventions Implemented as Appropriate) * Care Management - Stacy Alexis RN - 10/30/2023 12:57 PM EST The Patient has been provided a list of Home Health Agencies/DME vendors which serve their preferred geographic area. A letter describing our affiliations was reviewed with them and they were educated about their right to choose where referrals are placed. Provided patient with [facility] Star Quality Rating for Home care hand out. Patient requests referral to : [place], [place] [address] or Expected date of discharge: 11/01/2023. Referral routed to the Department Chairperson for matching with agency/vendor and to provide any required information. Stacy JARRELL RN Phone: [phone] Pager: [phone] * Plan of Care - Saad Foy RN - 10/30/2023 6:26 AM EST OUTCOME EVALUATION NOTE: OUTCOME SUMMARY: Pt neuro remains A & Ox4. Follows on BUE, flaccid on BLE. x1 Ativan for anxiety. Reported had alonger sleep last night w sched & PRN meds.. 1-2L NC while sleeping, otherwise tolerating RA while awake. NSR. Tmax 38.2C - Tylenol given w +effect. Maintaining MAP >65 wo intervention. Regular diet. Total feed - 1p assist. Neurogenic bowel/bladder - LLQ Colostomy has stool/gas. SPC has yellow aUOP. PLAN MOVING FORWARD: AM Labs Qshift Neuro MAP >65/SBP <160 Pain control Delirium prevention/day night cycle Q2 Turns IV Abx INDIVIDUALIZED FALL PREVENTION INTERVENTIONS: Patient-specific fall risk factors per assessment: [current deficits]: General weakness, ICU environment, pain, medications. Assistance [level of assistance required for transfers and ambulation]: 2A Supervision [direct monitoring required during toileting and ADLs]: RN/RICHELLE Surveillance [continuous indirect monitoring]: [employer], ICU monitoring, NKE, safety checks, purposeful rounding Patient-specific fall prevention interventions for sensory deficits provided, if applicable: [X] Yes CC, RN Problem: Fall Injury Risk Goal: Absence of Fall and Fall-Related Injury Outcome: Ongoing (Interventions Implemented as Appropriate) Problem: Adjustment to Illness (Sepsis/Septic Shock) Goal: Optimal Coping Outcome: Ongoing (Interventions Implemented as Appropriate) Problem: Bleeding (Sepsis/Septic Shock) Goal: Absence of Bleeding Outcome: Ongoing (Interventions Implemented as Appropriate) Problem: Glycemic Control Impaired (Sepsis/Septic Shock) Goal: Blood Glucose Level Within Desired Range Outcome: Ongoing (Interventions Implemented as Appropriate) Problem: Infection Progression (Sepsis) Goal: Absence of Infection Signs and Symptoms Outcome: Ongoing (Interventions Implemented as Appropriate) Problem: Nutrition Impaired (Sepsis/Septic Shock) Goal: Optimal Nutrition Intake Outcome: Ongoing (Interventions Implemented as Appropriate) Problem: Pain Acute Goal: Acceptable Pain Control and Functional Ability Outcome: Ongoing (Interventions Implemented as Appropriate) Problem: Anxiety Goal: Anxiety Reduction or Resolution Outcome: Ongoing (Interventions Implemented as Appropriate) Problem: Adult Inpatient Plan of Care Goal: Plan of Care Review Outcome: Ongoing (Interventions Implemented as Appropriate) Goal: Patient-Specific Goal (Individualized) Outcome: Ongoing (Interventions Implemented as Appropriate) Goal: Absence of Hospital-Acquired Illness or Injury Outcome: Ongoing (Interventions Implemented as Appropriate) Goal: Optimal Comfort and Wellbeing Outcome: Ongoing (Interventions Implemented as Appropriate) Goal: Readiness for Transition of Care Outcome: Ongoing (Interventions Implemented as Appropriate) Problem: Infection Goal: Absence of Infection Signs and Symptoms Outcome: Ongoing (Interventions Implemented as Appropriate) Problem: Bleeding (Surgery Nonspecified) Goal: Absence of Bleeding Outcome: Ongoing (Interventions Implemented as Appropriate) Problem: Bowel Motility Impaired (Surgery Nonspecified) Goal: Effective Bowel Elimination Outcome: Ongoing (Interventions Implemented as Appropriate) Problem: Infection (Surgery Nonspecified) Goal: Absence of Infection Signs and Symptoms Outcome: Ongoing (Interventions Implemented as Appropriate) Problem: Ongoing Anesthesia Effects (Surgery Nonspecified) Goal: Anesthesia/Sedation Recovery Outcome: Ongoing (Interventions Implemented as Appropriate) Problem: Postoperative Nausea and Vomiting (Surgery Nonspecified) Goal: Nausea and Vomiting Relief Outcome: Ongoing (Interventions Implemented as Appropriate) Problem: Postoperative Urinary Retention (Surgery Nonspecified) Goal: Effective Urinary Elimination Outcome: Ongoing (Interventions Implemented as Appropriate) * Care Management - Stacy Alexis RN - 10/29/2023 1:57 PM EST OFFICE OF CARE MANAGEMENT PROGRESS NOTE LOS: Hospital Day 4 days Chart reviewed, care reviewed with primary team and at interdisciplinary rounds. Patient continues to meet inpatient level of care related to: Patient was upgraded to ICU level of care yesterday, team was able to wean patients FiO2 support over the night. Decision Maker: Self Functional status prior to admission: Completely Dependent Home Environment: Others in the home: other (see comments) (Patient lives with his 2 care givers Annamarie and Jovanny. They have another client that lives with them as well. There are 2 cats and 2 dogs in the home). Current Living Arrangements: half-way. Accessibility Concerns: Ramp to enter the home with 1st floor living. Current Functional Ability: Completely Dependent DME used at home: wheelchair - power, lift device DME Needed at Discharge: No Patient is insured through: Primary Insurance: [place] Pay[place] / Plan[place] / Product Type: *No Product type* / Secondary Insurance: N/A Last Physical Therapy Recommendation: home with home health with (patient needs new wheelchair batteries) Last Occupational Therapy Recommendation: home with home health (& caregivers) with Plan for discharge is: Home w/ Services Outpatient Agency/Support Group Needs: Homecare agency Home Health Services: Registered Nurse, Physical Therapy, Occupational Therapy, Home Health Aide Agency Referrals: Not Applicable Transportation: ambulance Barriers to discharge: Denies needs/concerns at this time, ICU Needs ICU Needs: ICU specific devices / therapies Plan going forward: Patient will need aggressive pulmonary toilet and will need to wean oxygen requirements. Care Management will continue to follow and assist with discharge planning and coordination of care as indicated. Anticipated Date of Discharge: 11/05/2023 Stacy JARRELL RN Phone: [phone] Pager: [phone] * Consult Note - Rosmery Daly MD - 10/29/2023 8:46 AM EST INFECTIOUS DISEASE CONSULTATION NOTE Reason for Consult: OPAT Consulting Service: ICU Consulting Attending: Selma Brian MD Admission Date: 10/25/2023 History of Present Illness: Pt is a 58 y.o. male with a history of paraplegia (secondary to cervical spine injury s/p mechanical fall off of roof on 10/2020), diverting colostomy?, Chronic decubitus ulcer, chronic suprapubic tube, nephrolithiasis, recent UTI was transferred from [facility] secondary to infected kidney stone. Per chart review, patient presented with increasing agitation. Workup with CT showed 7 mm obstructing stone in right ureteral junction with fluid in right renal area/hydronephrosis and concerns of ureteral rupture. Upon presentation patient was febrile, hypotensive and in septic shock. Initial workup showed WBC 17.5, creatinine 1.1, UA positive for UTI. Given that he was toxic appearing, he was taken to the OR emergently for decompression for right ureteral stent and cystoscopy on 10/25. IntraOp findings showed edematous bladder, placement of right ureteral stent with purulent upper tract urine sent for culture, 2 bladder stones-smaller 1 extracted via scope and larger 1 not ranjit nable for extraction and left and given clinical condition. Beck catheter placed for maximum decompression. Postop he was transferred to ICU. Eventually patient was weaned off of pressors in the next 24 hours and his mentation improved. His leukocytosis was improving. Urethral catheter was removed as he had chronic indwelling suprapubic catheter. He then started spiking fevers on 10/26. On 10/21 7 AM went into acute hypoxic respiratory failure requiring HFNC. Workup was concerning for ARDS. Around the s ranjit time his urine cultures from admission grew Proteus mirabilis, Pseudomonas aeruginosa and Enterococcus faecalis, blood cultures growing Pseudomonas aeruginosa. He was on cefepime for initial 48 hours and then changed to Zosyn since then, vancomycin was added yesterday. Patient states that he had suprapubic catheter put in 2 years before. Has had recurrent UTIs for which she has been on multiple antibiotics previously. Not on any suppressive antibiotics. No recent hospitalization. He does not remember if he had fever or abdominal pain/flank pain before admission. Review of Systems: Pertinent positives and negatives noted in HPI. 14 point ROS otherwise negative except noted in HPI. Past Medical History: No past medical history on file. Past Surgical History: Past Surgical History: Procedure Laterality Date PRO CHANGE OF BLADDER TUBE, SIMPLE N/A 10/25/2023 CYSTOSTOMY TUBE, CHANGE (WRVU 0.9) performed by Selma Brian MD at [facility] MA[facility] OR PRO CYSTOSCOPY, INSERT URETERAL STENT Right 10/25/2023 CYSTO, STENT PLACEMENT (WRVU 2.82) performed by Selma Brian MD at [facility] MA[facility] OR PRO CYSTOSCOPY, REMV CALCULUS, SIMPLE N/A 10/25/2023 CYSTO, REMOVAL OF STENT, FOREIGN BODY OR CALCULUS, SIMPLE (WRVU 2.81) performed by Selma Brian MD at [facility] MA[facility] OR Medications: Scheduled Meds: pantoprazole EC 40 mg Oral Daily ipratropium-albuteroL 3 mL Nebulization Q4H acetylcysteine 600 mg Inhalation Q4H piperacillin-tazobactam 4.5 g Intravenous Q8H vancomycin 1 g Intravenous Q12H melatonin 6 mg Oral Nightly divalproex ER 500 mg Oral Daily multivitamin with minerals 1 tablet Oral Daily tamsulosin 0.4 mg Oral Daily sodium chloride 0.9 % (flush) 5 mL Intravenous BID heparin (porcine) 5,000 Units Subcutaneous Q8H [place] baclofen 20 mg Oral TID mirabegron ER 25 mg Oral Daily pregabalin 25 mg Oral TID traZODone 50 mg Oral Nightly docusate sodium 100 mg Oral TID senna 34.4 mg Oral Nightly Continuous Infusions: sodium chloride 0.9% sodium chloride 0.9% PRN Meds:.guaiFENesin, vancomycin, potassium chloride ER OR potassium chloride ER, LORazepam, acetaminophen, sodium chloride 0.9 % (flush), lidocaine, sodium chloride 0.9%, sodium chloride 0.9%, sodium chloride 0.9 % (flush), hydrOXYzine, magnesium sulfate OR magnesium sulfate, sodium chloride 0.9 % (flush) Allergies/Adverse drug reactions: Allergies Allergen Reactions Hydromorphone Other (See Comments) Daughter states makes him irritable and has hallucinations Family History: Family History No data available Physical Exam: Last value Range last 24 hrs Temperature Temp: 37.4 ??C (99.3 ??F) Temp: [37.2 ??C (99 ??F)-39 ??C (102.2 ??F)] Heart Rate Heart Rate: 94 Heart Rate: [74-103] Blood Pressure BP: 137/86 BP: (126-158)/(73-90) Respiratory Rate Resp: 24 Resp: [9-25] SpO2 SpO2: 99 % SpO2: [87 %-99 %] General: no acute distress, wheelchair-bound Head: normocephalic, atraumatic EENT: No conjunctival petechiae Neck: No LAD Cardiovascular: Tachycardia, soft systolic murmur in mitral area, chest port (no tenderness to palpation-placed 3 years before ) pulmonary: Diminished breath sounds bilaterally Abdomen: Soft, suprapubic catheter in place with dried blood around it, no abdominal tenderness, left-sided colostomy in place Skin: No rash on visible skin Neuro: A&O, paraplegic Psych: Euthymic, pleasant I have reviewed the pertinent laboratory, microbiology, and diagnostic/radiology/procedure results: Recent Labs 10/29/238 10/28/23 0012 10/27/23 0037 WBC 7.4 8.4 15.3* HGB 9.4* 9.7* 9.8* HCT 28.2* 28.8* 28.8* PLATELET 150 149 160 Recent Labs 10/29/23 0028 10/28/23 0012 10/27/23 0037 NA 141 142 141 K 3.8 3.7 3.6 CL 104 108* 110* CO2 27 24 21* BUN 10 13 19 CREATININE 0.76* 0.82 0.87 Recent Labs 10/25/23 1050 AST 40* ALT 27 ALKPHOS 54 BILITOT 0.3 No results found for: CRP No results found for: SEDRATE No results found for: SPGRAVITYUA, PHUADIP, PROTEINUADIP, GLUCOSEU, KETONESUA, UROBILIUADIP, BLOODUADIP, NITRATEUA, LEUKOESTERUA, WBCUA, RBCUA, BILIRUBINUA Microbiology: 10/24-urine culture-Proteus mirabilis, Pseudomonas 10/24-blood culture-Pseudomonas aeruginosa 10/25-urine culture-Enterococcus faecalis 10/25-blood culture-NGTD 10/28-blood culture-NGTD Antimicrobials: 10/24 to 10/25-cefepime 10/26 to present Zosyn 10/28 to present vancomycin Imaging/diagnostics: Reviewed Impression: Nighat Barrios is a 58 y.o. male with a history of paraplegia (secondary to cervical spine injury s/pmechanical fall off of roof on 10/2020), diverting colostomy, Chronic decubitus ulcer, chronic suprapubic tube, nephrolithiasis, recent UTI was transferred from [facility] for currently being managed for septic shock secondary to polymicrobial UTI with right ureteral obstruction and hydronephrosis s/pright ureteral stenting with 1 renal stone removed, Pseudomonas bacteremia. At present patient is afebrile, hemodynamically stable. Off of pressors. Labs show downtrending leukocytosis. Based on his culture data, would prefer to continue on Zosyn for now. Except his fever curve everything else points towards clinical improvement. Hence would like to monitor him for [id number] hours on Zosyn. He will likely need 2 weeks of IV antibiotic therapy. If MRSA nasal swab is negative, discontinue vancomycin. Source of infection is . He still has 1 large renal stone in place which is likely infected, unclear when that would be removed. If patient continues to have fever spikes, he will likely need to have the other stone removed at the earliest and also evaluate chest portwhich at this point is less likely to be infected given the quick clearance of bacteremia RECOMMENDATIONS: -Monitor fever curve- -continue Zosyn for now. Please discontinue vancomycin if MRSA nares is negative -Will likely need 2 weeks of IV antibiotics -Would likely need the other renal stone removed at the earliest -Rest of the plan per primary team Patient discussed with ID attending Dr. Daly. Thank you for the consult. ID consult service will continue to follow. Please page ID Dougie team (pager [phone]) with questions or concerns. Marcus Thomas MD Fellow, Infectious Disease Pager: [phone] Epic Chat 10/29/2023 ID ATTENDING I have seen the patient, reviewed the chart as well as the documentation as written by Dr. Thomas. The assessment and plan were formulated in discussion with me and I agree with them as documented.I would add/modify: Unclear why he has ongoing fevers. Had a respiratory decompensation but seemed to be c/w mucus plugging and patient is now asymptomatic and on RA, so pneumonia is unlikely. Retained source in the urinary tract is possible explanation. Would monitor for now on this regimen. No oral option available so will ultimately need home IV therapy when ready for discharge, if prior to end of anticipated therapy. Rosmery Daly MD Infectious Diseases * Plan of Care - Saad Foy RN - 10/29/2023 3:46 AM EST OUTCOME EVALUATION NOTE: OUTCOME SUMMARY: Pt neuro remains A & Ox4. Follows on BUE, flaccid on BLE (no sensation). x1 Ativan for anxiety at midnight thinking about procedure in AM. Emotional support provided. See RT note for HFNC settings. NSR. Tmax 39C. Icepack/Tylenol given w +effect. Maintaining MAP >65 wo intervention. NPO, give. Total feed - 1p assist. Neurogenic bowel/bladder - LLQ Colostomy has stool/gas. SPC has yellow aUOP. PLAN MOVING FORWARD: AM Labs Qshift Neuro MAP >65/SBP <160 Pain control Delirium prevention/day night cycle Wean HFNC Q2 Turns INDIVIDUALIZED FALL PREVENTION INTERVENTIONS: Patient-specific fall risk factors per assessment: [current deficits]: General weakness, ICU environment, pain, medications. Assistance [level of assistance required for transfers and ambulation]: 2A Supervision [direct monitoring required during toileting and ADLs]: RN/MACHINIST FIRST CLASS Surveillance [continuous indirect monitoring]: [employer], ICU monitoring, NKE, safety checks, purposeful rounding Patient-specific fall prevention interventions for sensory deficits provided, if applicable: [X] Yes CC, RN Problem: Fall Injury Risk Goal: Absence of Fall and Fall-Related Injury Outcome: Ongoing (Interventions Implemented as Appropriate) Problem: Adjustment to Illness (Sepsis/Septic Shock) Goal: Optimal Coping Outcome: Ongoing (Interventions Implemented as Appropriate) Problem: Bleeding (Sepsis/Septic Shock) Goal: Absence of Bleeding Outcome: Ongoing (Interventions Implemented as Appropriate) Problem: Glycemic Control Impaired (Sepsis/Septic Shock) Goal: Blood Glucose Level Within Desired Range Outcome: Ongoing (Interventions Implemented as Appropriate) Problem: Infection Progression (Sepsis) Goal: Absence of Infection Signs and Symptoms Outcome: Ongoing (Interventions Implemented as Appropriate) Problem: Nutrition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 well breakfast and lunch but feeling nauseated at dinner. Paged team withno response. Ended up giving him his ativan as he was also feeling anxious. Educated to call if emelyn doesn't go away. Problem: Adjustment to Illness (Sepsis/Septic Shock) Goal: Optimal Coping Outcome: Ongoing (Interventions Implemented as Appropriate) Problem: Nutrition Impaired (Sepsis/Septic Shock) Goal: Optimal Nutrition Intake Outcome: Ongoing (Interventions Implemented as Appropriate) Problem: Anxiety Goal: Anxiety Reduction or Resolution Outcome: Ongoing (Interventions Implemented as Appropriate) * Plan of Care - Tony Fenton RN - 10/27/2023 6:10 AM EST OUTCOME EVALUATION NOTE: OUTCOME SUMMARY: AOx4, Follows BUE, Paraplegia BLE, PERRLA, NSR, Normotensive, Room air Maintained side to side turns for DTI prevention Tmax 39.9, team notified, Acetaminophen ordered, ice-packs placed, fever reduced to 37.8 Regular diet Anxiety at baseline, PRN Ativan given x1 No pain reported throughout evening PLAN MOVING FORWARD: PT/OT Continue treatment for urosepsis Side to Side turns Pain and anxiety control Discharge when appropriate CARE PLAN GOAL OUTCOME EVALUATION: Problem: Fall Injury Risk Goal: Absence of Fall and Fall-Related Injury Outcome: Ongoing (Interventions Implemented as Appropriate) Problem: Adjustment to Illness (Sepsis/Septic Shock) Goal: Optimal Coping Outcome: Ongoing (Interventions Implemented as Appropriate) Problem: Bleeding (Sepsis/Septic Shock) Goal: Absence of Bleeding Outcome: Ongoing (Interventions Implemented as Appropriate) Problem: Glycemic Control Impaired (Sepsis/Septic Shock) Goal: Blood Glucose Level Within Desired Range Outcome: Ongoing (Interventions Implemented as Appropriate) Problem: Infection Progression (Sepsis) Goal: Absence of Infection Signs and Symptoms Outcome: Ongoing (Interventions Implemented as Appropriate) Problem: Nutrition Impaired (Sepsis/Septic Shock) Goal: Optimal Nutrition Intake Outcome: Ongoing (Interventions Implemented as Appropriate) Problem: Pain Acute Goal: Acceptable Pain Control and Functional Ability Outcome: Ongoing (Interventions Implemented as Appropriate) Problem: Anxiety Goal: Anxiety Reduction or Resolution Outcome: Ongoing (Interventions Implemented as Appropriate) Problem: Adult Inpatient Plan of Care Goal: Plan of Care Review Outcome: Ongoing (Interventions Implemented as Appropriate) Goal: Patient-Specific Goal (Individualized) Outcome: Ongoing (Interventions Implemented as Appropriate) Goal: Absence of Hospital-Acquired Illness or Injury Outcome: Ongoing (Interventions Implemented as Appropriate) Goal: Optimal Comfort and Wellbeing Outcome: Ongoing (Interventions Implemented as Appropriate) Goal: Readiness for Transition of Care Outcome: Ongoing (Interventions Implemented as Appropriate) Problem: Infection Goal: Absence of Infection Signs and Symptoms Outcome: Ongoing (Interventions Implemented as Appropriate) Problem: Bleeding (Surgery Nonspecified) Goal: Absence of Bleeding Outcome: Ongoing (Interventions Implemented as Appropriate) Problem: Bowel Motility Impaired (Surgery Nonspecified) Goal: Effective Bowel Elimination Outcome: Ongoing (Interventions Implemented as Appropriate) Problem: Infection (Surgery Nonspecified) Goal: Absence of Infection Signs and Symptoms Outcome: Ongoing (Interventions Implemented as Appropriate) Problem: Ongoing Anesthesia Effects (Surgery Nonspecified) Goal: Anesthesia/Sedation Recovery Outcome: Ongoing (Interventions Implemented as Appropriate) Problem: Pain (Surgery Nonspecified) Goal: Acceptable Pain Control Outcome: Ongoing (Interventions Implemented as Appropriate) Problem: Postoperative Nausea and Vomiting (Surgery Nonspecified) Goal: Nausea and Vomiting Relief Outcome: Ongoing (Interventions Implemented as Appropriate) Problem: Postoperative Urinary Retention (Surgery Nonspecified) Goal: Effective Urinary Elimination Outcome: Ongoing (Interventions Implemented as Appropriate) * Plan of Care - Tony Fenton RN - 10/26/2023 5:07 AM EST OUTCOME EVALUATION NOTE: OUTCOME SUMMARY: AOx4, Follows BUE, Paraplegia BLE, PERRLA, NSR, Normotensive, Room air Maintained side to side turns for DTI prevention Bedside swallow performed for liquids, passed Anxiety at baseline, PRN Ativan given x1 Stiffness/Pain in neck reported at 9/10 relieved by PRN Fentanyl, see MAR 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 Continue treatment for urosepsis RTOR for stone removal Side to Side turns Pain and anxiety control INDIVIDUALIZED FALL PREVENTION INTERVENTIONS: Patient-specific fall risk factors per assessment: [current deficits]: AMS, Quadriplegia, Lines, Drains, Impaired mobility Assistance [level of assistance required for transfers and ambulation]: Full assist for all transfers/ambulation Supervision [direct monitoring required during toileting and ADLs]: Full assist Surveillance [continuous indirect monitoring]: ICU monitoring CARE PLAN GOAL OUTCOME EVALUATION: Problem: Fall Injury Risk Goal: Absence of Fall and Fall-Related Injury Outcome: Ongoing (Interventions Implemented as Appropriate) Problem: Adjustment to Illness (Sepsis/Septic Shock) Goal: Optimal Coping Outcome: Ongoing (Interventions Implemented as Appropriate) Problem: Bleeding (Sepsis/Septic Shock) Goal: Absence of Bleeding Outcome: Ongoing (Interventions Implemented as Appropriate) Problem: Glycemic Control Impaired (Sepsis/Septic Shock) Goal: Blood Glucose Level Within Desired Range Outcome: Ongoing (Interventions Implemented as Appropriate) Problem: Infection Progression (Sepsis) Goal: Absence of Infection Signs and Symptoms Outcome: Ongoing (Interventions Implemented as Appropriate) Problem: Nutrition Impaired (Sepsis/Septic Shock) Goal: Optimal Nutrition Intake Outcome: Ongoing (Interventions Implemented as Appropriate) Problem: Pain Acute Goal: Acceptable Pain Control and Functional Ability Outcome: Ongoing (Interventions Implemented as Appropriate) Problem: Anxiety Goal: Anxiety Reduction or Resolution Outcome: Ongoing (Interventions Implemented as Appropriate) Problem: Adult Inpatient Plan of Care Goal: Plan of Care Review Outcome: Ongoing (Interventions Implemented as Appropriate) Goal: Patient-Specific Goal (Individualized) Outcome: Ongoing (Interventions Implemented as Appropriate) Goal: Absence of Hospital-Acquired Illness or Injury Outcome: Ongoing (Interventions Implemented as Appropriate) Goal: Optimal Comfort and Wellbeing Outcome: Ongoing (Interventions Implemented as Appropriate) Goal: Readiness for Transition of Care Outcome: Ongoing (Interventions Implemented as Appropriate) Problem: Infection Goal: Absence of Infection Signs and Symptoms Outcome: Ongoing (Interventions Implemented as Appropriate) Problem: Bleeding (Surgery Nonspecified) Goal: Absence of Bleeding Outcome: Ongoing (Interventions Implemented as Appropriate) Problem: Bowel Motility Impaired (Surgery Nonspecified) Goal: Effective Bowel Elimination Outcome: Ongoing (Interventions Implemented as Appropriate) Problem: Infection (Surgery Nonspecified) Goal: Absence of Infection Signs and Symptoms Outcome: Ongoing (Interventions Implemented as Appropriate) Problem: Ongoing Anesthesia Effects (Surgery Nonspecified) Goal: Anesthesia/Sedation Recovery Outcome: Ongoing (Interventions Implemented as Appropriate) Problem: Pain (Surgery Nonspecified) Goal: Acceptable Pain Control Outcome: Ongoing (Interventions Implemented as Appropriate) Problem: Postoperative Nausea and Vomiting (Surgery Nonspecified) Goal: Nausea and Vomiting Relief Outcome: Ongoing (Interventions Implemented as Appropriate) Problem: Postoperative Urinary Retention (Surgery Nonspecified) Goal: Effective Urinary Elimination Outcome: Ongoing (Interventions Implemented as Appropriate) * Op Note - Lucas Ley MD - 10/25/2023 8:[address] [facility] Operative Note Patient Name: Nighat Barrios : [id number] MR#: [id number] Case Date: 10/25/2023 Surgeon: Surgeon(s) and Role: * Selma Brian MD - Primary * Lucas Ley MD - Resident - Assisting Preoperative diagnosis: septic stone Postoperative diagnosis: septic stone Procedure(s) (LRB): CYSTO, STENT PLACEMENT (WRVU 2.82) (Right) CYSTOSTOMY TUBE, CHANGE (WRVU 0.9) (N/A) CYSTO, REMOVAL OF STENT, FOREIGN BODY OR CALCULUS, SIMPLE (WRVU 2.81) (N/A) Findings: edematous bladder, R 7Fr Vr ureteral stent with purulent upper tract urine sent for culture. 2 bladder stones, smaller stone extracted via scope, larger one not amenable for extraction and left alone given clinical condition. 20Fr SPT/20Fr urethral catheter [10cc in each]. ICU disposition - Beck catheter placed for maximum decompression, likely short course - URS/bladder stone removal to be requested pending clinical course - ICU disposition Anesthesia: General Estimated Blood Loss: Specimens removed during surgery: upper tract renal pelvis culture, right Drains: 20Fr urethral, 20Fr SP catheter Surgical Closure: na Disposition: extubated in the OR and taken directly to the ICU in a stable, but guarded condition. Condition: doing well with some problems : vasopressor requirements, uroseptic (Please see the Surgical Encounter Summary for any Implant and Specimen details pertinent to this patient.) HPI/Surgical Indications: Nighat Barrios is a 58 y.o. male with history of paraplegia, indwelling beck, nephrolithiasis, now presenting with right urolithiasis. New found agitation prompted ED visit and further workup was obtained as described below. He is notinteractive and answers only some questions; per report he is baseline agitated. He was febrile at the OSH ED and arrived to on 5 of levo which was subsequently increased to double digits. Labs: WBC 17.5, Cr 1.19 UA: nitrite/leuk +, >[address] A/P: significant for proximal right stone, ~7mm on the right with hydro . On exam, patient is toxic. Abdominal exam with right flank tenderness, no suprapubic tenderness. heis passing urine through SP catheter. No other related history. He received cefepime, vanc, metro and 4L fluids prior to arrival. Procedure Description: The patient was identified in the pre-operative holding area. Consent was not able to be obtained due to his DPOA not being able to be contacted as well as the urgent need for decompression. The correct side of the procedure was marked. The patient was taken to the operating room and placed supine on the operating table. General anesthesia was induced. The patient was then moved to the lithotomy position and prepped and draped in the usual sterile fashion. A timeout was performed involving all members of the OR team confirming the patient's identity and planned procedure. Preoperative antibiotics were administered. The existing SPT was capped. A 22 Fr rigid cystoscope was inserted into the bladder. Cystoscopy notable for an edematous bladder/catheter changes as well as 2 bladder stones. A guide wire was passed into the right ureteral orifice without difficulty and visualized on fluoroscopy to be within the renal pelvis. A Pollack catheter was inserted over the guide wire, minimal contrast was gently instilled, and the renal pelvis was visualized on fluoroscopy to be without filling defects. Upper tract urine was then gently aspirated; purulent urine was collected and sent for culture. The Pollack catheter was then removed and a 7Fr Vr double-J stent was passed over the wire. The proximal coil was visualized on fluoroscopy to be within the renal pelvis, and the distal coil was seenwith direct visualization in the bladder. Purulent urine continued to efflux from the stent. Our attention was then turned to the bladder stones; the smaller stone was extracted whole via the scope. The larger stone could not be crushed/extracted whole; this was not addressed further given his septic condition. The existing SPT was then removed after its balloon was deflated. A 20Fr beck was inserted into the tract and the balloon filled under direct vision. The cystoscope was then removed. A 20Fr urethral catheter was then inserted into the penis with urine return and its balloon was inflated. The patient tolerated the procedure with eventual transition to single pressor requirement and transferred to the ICU for further care. Dr. Brian, the attending surgeon, was present for the entire procedure. Associated attestation - Selma Brian MD - 10/25/2023 9:42 AM EST Attestation: Case Date: 10/25/2023 Attending: I, Dr. Brian, was present and scrubbed for the entire procedure. SELMA BRIAN MD 10/25/2023 * ED Triage - Tari Sherman RN - 10/25/2023 6:04 AM EST Transfer from OSH for high lever of care of sepsis related to obstructing renal calculi Pt arrives via [facility] somnolent with 5mcg of levo infusing. Pt hypotensive on arrival. Levo titratedup to 10mcg/min by [facility] while [facility] Levo was being set up. HPI (Adult) Stated Reason for Visit: sepsis History Obtained From: EMS Precipitating Event(s): none documented in this encounter Plan of Treatment Pending Results Name Type Priority Associated Diagnoses Date /Time ABORH Recheck Status Blood Bank STAT 10/03 8:43 AM EST Scheduled Referrals Name Type Priority Associated Diagnoses Orde r Schedule Referral to Home Health Outpatient Referral Routine Quadriplegia Ordered: 11/10/2023 documented as of this encounter Procedures Procedure Name Priority Date/Time Associated Diagnosis Comments HEMOGRAM Routine 11/09/2023 1:50 AM EST DIFFERENTIAL, AUTOMATED Routine 11/09/2023 1:50 AM EST CBC (WITH DIFF) Routine 11/09/2023 1:50 AM EST PHOSPHORUS Routine 11/09/2023 1:50 AM EST MAGNESIUM Routine 11/09/2023 1:50 AM EST BASIC METABOLIC PANEL Routine 11/09/2023 1:50 AM EST HEMOGRAM Routine 11/08/2023 4:20 PM EST DIFFERENTIAL, AUTOMATED Routine 11/08/2023 4:20 PM EST CBC (WITH DIFF) Routine 11/08/2023 4:20 PM EST PHOSPHORUS Routine 11/08/2023 4:20 PM EST MAGNESIUM Routine 11/08/2023 4:20 PM EST BASIC METABOLIC PANEL Routine 11/08/2023 4:20 PM EST HEMOGRAM Routine 11/07/2023 6:33 AM EST DIFFERENTIAL, AUTOMATED Routine 11/07/2023 6:33 AM EST CBC (WITH DIFF) Routine 11/07/2023 6:33 AM EST PHOSPHORUS Routine 11/07/2023 6:33 AM EST MAGNESIUM Routine 11/07/2023 6:33 AM EST BASIC METABOLIC PANEL Routine 11/07/2023 6:33 AM EST HEMOGRAM Routine 11/06/2023 1:00 AM EST DIFFERENTIAL, AUTOMATED Routine 11/06/2023 1:00 AM EST CBC (WITH DIFF) Routine 11/06/2023 1:00 AM EST PHOSPHORUS Routine 11/06/2023 1:00 AM EST MAGNESIUM Routine 11/06/2023 1:00 AM EST BASIC METABOLIC PANEL Routine 11/06/2023 1:00 AM EST TROPONIN - SERIES STAT 11/05/2023 7:4 0 AM EST TROPONIN - SERIES Routine 11/05/2023 4:1 7 AM EST TSH CASCADE Routine 11/05/2023 4:17 AM EST HEMOGRAM Routine 11/05/2023 4:17 AM EST DIFFERENTIAL, AUTOMATED Routine 11/05/2023 4:17 AM EST CBC (WITH DIFF) Routine 11/05/2023 4:17 AM EST PHOSPHORUS Routine 11/05/2023 4:17 AM EST MAGNESIUM Routine 11/05/2023 4:17 AM EST BASIC METABOLIC PANEL Routine 11/05/2023 4:17 AM EST TROPONIN - SERIES STAT 11/04/2023 11: 50 PM EST XR CHEST ONE VIEW STAT 11/04/2023 6:5 5 PM EST BLOOD GAS VENOUS POC Routine 11/04/2023 6:42 PM EST TROPONIN - SERIES STAT 11/04/2023 6:3 0 PM EST HEMOGRAM STAT 11/04/2023 6:30 PM EST DIFFERENTIAL, AUTOMATED STAT 11/04/2023 6:30 PM EST LACTATE, WHOLE BLOOD STAT 11/04/2023 6:30 PM EST CBC (WITH DIFF) STAT 11/04/2023 6:30 PM EST PHOSPHORUS STAT 11/04/2023 6:30 PM EST MAGNESIUM STAT 11/04/2023 6:30 PM EST BASIC METABOLIC PANEL STAT 11/04/2023 6:30 PM EST EKG 12-LEAD STAT 11/04/2023 6:20 PM EST Septic shock HEMOGRAM Routine 11/04/2023 1:55 AM EST DIFFERENTIAL, AUTOMATED Routine 11/04/2023 1:55 AM EST CBC (WITH DIFF) Routine 11/04/2023 1:55 AM EST PHOSPHORUS Routine 11/04/2023 1:55 AM EST MAGNESIUM Routine 11/04/2023 1:55 AM EST BASIC METABOLIC PANEL Routine 11/04/2023 1:55 AM EST HEMOGRAM Routine 11/03/2023 1:15 AM EST DIFFERENTIAL, AUTOMATED Routine 11/03/2023 1:15 AM EST CBC (WITH DIFF) Routine 11/03/2023 1:15 AM EST PHOSPHORUS Routine 11/03/2023 1:15 AM EST MAGNESIUM Routine 11/03/2023 1:15 AM EST BASIC METABOLIC PANEL Routine 11/03/2023 1:15 AM EST HEMOGRAM Routine 11/02/2023 12:45 AM EST DIFFERENTIAL, AUTOMATED Routine 11/02/2023 12:45 AM EST CBC (WITH DIFF) Routine 11/02/2023 12:45 AM EST PHOSPHORUS Routine 11/02/2023 12:45 AM EST MAGNESIUM Routine 11/02/2023 12:45 AM EST BASIC METABOLIC PANEL Routine 11/02/2023 12:45 AM EST POCT GLUCOSE Routine 11/01/2023 7:51 PM EST TROPONIN - SERIES STAT 11/01/2023 4:0 9 PM EST LACTATE, WHOLE BLOOD Routine 11/01/2023 4:09 PM EST BLOOD CULTURE STAT 11/01/2023 2:30 PM EST TROPONIN - SERIES STAT 11/01/2023 2:2 0 PM EST HEMOGRAM STAT 11/01/2023 2:20 PM EST DIFFERENTIAL, AUTOMATED STAT 11/01/2023 2:20 PM EST BLOOD CULTURE STAT 11/01/2023 2:20 PM EST CBC (WITH DIFF) STAT 11/01/2023 2:20 PM EST PHOSPHORUS STAT 11/01/2023 2:20 PM EST MAGNESIUM STAT 11/01/2023 2:20 PM EST BASIC METABOLIC PANEL STAT 11/01/2023 2:20 PM EST XR CHEST ONE VIEW STAT 11/01/2023 1:5 5 PM EST EKG 12-LEAD Routine 11/01/2023 1:44 PM EST Septic shock HEMOGRAM Routine 11/01/2023 12:28 AM EST DIFFERENTIAL, AUTOMATED Routine 11/01/2023 12:28 AM EST CBC (WITH DIFF) Routine 11/01/2023 12:28 AM EST PHOSPHORUS Routine 11/01/2023 12:28 AM EST MAGNESIUM Routine 11/01/2023 12:28 AM EST BASIC METABOLIC PANEL Routine 11/01/2023 12:28 AM EST XR CHEST ONE VIEW STAT 10/31/2023 8:1 2 PM EST PHOSPHORUS Routine 10/31/2023 12:05 AM EST MAGNESIUM Routine 10/31/2023 12:05 AM EST BLOOD CULTURE STAT 10/30/2023 1:00 PM EST BLOOD CULTURE STAT 10/30/2023 12:55 PM EST VALPROIC ACID LEVEL, TOTAL STAT 10/30/2023 10:05 AM EST HEMOGRAM STAT 10/30/2023 12:07 AM EST DIFFERENTIAL, AUTOMATED STAT 10/30/2023 12:07 AM EST CBC (WITH DIFF) STAT 10/30/2023 12:07 AM EST PHOSPHORUS Routine 10/30/2023 12:07 AM EST MAGNESIUM Routine 10/30/2023 12:07 AM EST BASIC METABOLIC PANEL STAT 10/30/2023 12:07 AM EST MRSA PCR SCREEN STAT 10/29/2023 6:48 AM EST XR CHEST ONE VIEW STAT 10/29/2023 6:2 0 AM EST HEMOGRAM STAT 10/29/2023 12:28 AM EST DIFFERENTIAL, AUTOMATED STAT 10/29/2023 12:28 AM EST CBC (WITH DIFF) STAT 10/29/2023 12:28 AM EST PHOSPHORUS STAT 10/29/2023 12:28 AM EST MAGNESIUM STAT 10/29/2023 12:28 AM EST BASIC METABOLIC PANEL STAT 10/29/2023 12:28 AM EST ECHO COMPLETE W CONTRAST Routine 10/28/2023 3:48 PM EST Oxygen desaturation CT CHEST PULMONARY EMBOLISM W CONTRAST STAT 10/28/2023 12:[address] ABDOMEN AND PELVIS W CONTRAST Routine 10/28/2023 12:53 PM EST BLOOD CULTURE STAT 10/28/2023 9:22 AM EST BLOOD CULTURE STAT 10/28/2023 9:10 AM EST BLOOD GAS ARTERIAL POC Routine 10/28/2023 6:04 AM EST AIRWAY CLEARANCE PER RT PROTOCOL Routine 10/28/2023 5:45 AM EST BLOOD GAS VENOUS POC Routine 10/28/2023 4:36 AM EST EKG 12-LEAD STAT 10/28/2023 4:01 AM EST Oxygen desaturation XR CHEST ONE VIEW STAT 10/28/2023 3:3 2 AM EST HEMOGRAM STAT 10/28/2023 12:12 AM EST DIFFERENTIAL, AUTOMATED STAT 10/28/2023 12:12 AM EST CBC (WITH DIFF) STAT 10/28/2023 12:12 AM EST BASIC METABOLIC PANEL STAT 10/28/2023 12:12 AM EST POCT GLUCOSE Routine 10/27/2023 12:38 PM EST POCT GLUCOSE Routine 10/27/2023 8:01 AM EST POCT GLUCOSE Routine 10/27/2023 3:51 AM EST POCT GLUCOSE Routine 10/27/2023 12:44 AM EST HEMOGRAM STAT 10/27/2023 12:37 AM EST DIFFERENTIAL, AUTOMATED STAT 10/27/2023 12:37 AM EST CBC (WITH DIFF) STAT 10/27/2023 12:37 AM EST PHOSPHORUS STAT 10/27/2023 12:37 AM EST MAGNESIUM STAT 10/27/2023 12:37 AM EST BASIC METABOLIC PANEL STAT 10/27/2023 12:37 AM EST POCT GLUCOSE Routine 10/26/2023 7:31 PM EST POCT GLUCOSE Routine 10/26/2023 4:57 PM EST POCT GLUCOSE Routine 10/26/2023 4:04 PM EST POCT GLUCOSE Routine 10/26/2023 12:10 PM EST POCT GLUCOSE Routine 10/26/2023 7:27 AM EST POCT GLUCOSE Routine 10/26/2023 4:36 AM EST POCT GLUCOSE Routine 10/26/2023 12:59 AM EST HEMOGRAM STAT 10/26/2023 12:59 AM EST DIFFERENTIAL, AUTOMATED STAT 10/26/2023 12:59 AM EST CBC (WITH DIFF) STAT 10/26/2023 12:59 AM EST PHOSPHORUS STAT 10/26/2023 12:59 AM EST MAGNESIUM STAT 10/26/2023 12:59 AM EST BASIC METABOLIC PANEL STAT 10/26/2023 12:59 AM EST POCT GLUCOSE Routine 10/25/2023 8:57 PM EST POCT GLUCOSE Routine 10/25/2023 3:26 PM EST EKG 12-LEAD STAT 10/25/2023 11:39 AM EST Septic shock POCT GLUCOSE Routine 10/25/2023 11:06 AM EST HEMOGRAM STAT 10/25/2023 10:50 AM EST DIFFERENTIAL, AUTOMATED STAT 10/25/2023 10:50 AM EST LACTATE, WHOLE BLOOD STAT 10/25/2023 10:50 AM EST BLOOD CULTURE STAT 10/25/2023 10:50 AM EST CBC (WITH DIFF) STAT 10/25/2023 10:50 AM EST PHOSPHORUS STAT 10/25/2023 10:50 AM EST MAGNESIUM STAT 10/25/2023 10:50 AM EST COMPREHENSIVE METABOLIC PANEL STAT 10/25/2023 10:50 AM EST BLOOD CULTURE STAT 10/25/2023 10:40 AM EST POCT GLUCOSE Routine 10/25/2023 9:55 AM EST XR FLUORO NO RAD <1HR - OR USE Routine 10/25/2023 9:38 AM EST CYSTO, REMOVAL\STENT\FOREIGN BODY\CALCULUS\SIMPLE Routine 10/25/2023 9:15 AM EST CYSTOSTOMY TUBE, CHANGE Routine 10/25/2023 9:14 AM EST URINE CULTURE STAT 10/25/2023 9:13 AM EST ABORH RECHECK STATUS STAT 10/25/2023 8:43 AM EST TYPE AND SCREEN ([facility]/LAURIE) STAT 10/25/2023 8:43 AM EST Cystoscopy, Remv Calculus, Simple (30997) 10/25/2023 8:01 AM EST septic stone Change Of Bladder Tube, Simple ([id number]) 10/25/2023 8:01 AM EST septic stone Cystoscopy, Insert Ureteral Stent ([id number]) 10/25/2023 8:01 AM EST septic stone SCAN, PERIPHERAL BLOOD STAT 10/25/2023 7:58 AM EST HEMOGRAM STAT 10/25/2023 7:58 AM EST DIFFERENTIAL, AUTOMATED STAT 10/25/2023 7:58 AM EST CBC (WITH DIFF) STAT 10/25/2023 7:58 AM EST PHOSPHORUS STAT 10/25/2023 7:58 AM EST MAGNESIUM STAT 10/25/2023 7:58 AM EST HEMOGLOBIN A1C STAT 10/25/2023 7:58 AM EST BASIC METABOLIC PANEL STAT 10/25/2023 7:58 AM EST CYSTO, STENT PLACEMENT Routine 10/25/2023 7:14 AM EST documented in this encounter Results * Differential, Automated (11/09/2023 1:50 AM EST) Neutrophil % 69.3 % [facility] Neutrophil Absolute 5.11 1.70 - 6.10 x10(3)/[facility] Lymph % 20.4 % [facility] Lymphocytes Abs 1.5 0.9 - 3.2 x10(3)/[facility] Monocyte % 7.0 % [facility] Monocyte Abs 0.5 0.3 - 0.9 x10(3)/[facility] Eos % 2.3 % [facility] Eosinophils Abs 0.2 0.0 - 0.4 x10(3)/[facility] Basophil % 0.5 % [facility] Baso Absolute 0.0 0.0 - 0.1 x10(3)/[facility] Immature Gran % 0.50 % [facility] Comment: Immature granulocytes(IG's)percentage and absolute count will include metamyelocytes, myelocytes, and promyelocytes. Blood smears from CBCs yielding IG's will be scanned manually for concordance. If this scan disagrees with the automated IG or if promyelocytes are noted, a manual differential will be performed. Immature Gran Absolute 0.04 0.00 - 0.04 x10(3)/mcL [facility] Blood 11/09/2023 1:50 AM EST 11/09/2023 2:00 AM EST Narrative Resulting Agency Comment Spec In Lab Monty OMER HEMATOLOGY ORDERABLE S [facility] [place] [address] * (ABNORMAL) Hemogram (11/09/2023 1:50 AM EST) White Blood Cell 7.4 4.0 - 9.5 x10(3)/mc L [facility] Red Blood Cell 2.88(L) 4.58 - 5.54 x10(6)/mc L [facility] Hemoglobin 8.9(L) 13.7 - 16.5 g/dL [facility] Hematocrit 26.5(L) 40.5 - 48.5 % [facility] Mean Cell Volume 92.0 82.9 - 93.1 fL [facility] Mean Cell Hemoglobin 30.9 27.5 - 32.1 pg [facility] Mean Cell Hemoglobin Concentration 33.6 32.0 - 35.7 g/dL [facility] Platelet 430(H) 145 - 357 x10(3)/mc L [facility] RDW Standard Deviation 46.1(H) 36.0 - 45.0 fL [facility] RDW coefficient of variation 14.3(H) 11.4 - 13.8 % [facility] Mean Platelet Volume 10.0 7.6 - 12.9 fL [facility] NRBC% auto 0.0 % [facility] NRBC Absolute 0.000 0.000 - 0.000 x10(3)/mc L [facility] Blood 11/09/2023 1:50 AM EST 11/09/2023 2:00 AM EST Narrative Resulting Agency Comment Spec In Lab Monty OMER HEMATOLOGY ORDERABLE S Performing Organization Address [facility]/ZIP Co de Phone Number [facility] [place] [address] * (ABNORMAL) Basic Metabolic Panel (non-fasting) (11/09/2023 1:50 AM EST) Glucose 117 65 - 199 mg/dL [facility] Comment:Diabetes: >=200 mg/d L plus symptoms Blood Urea Nitrogen 11 10 - 20 mg/dL [facility] Creatinine 0.70(L) 0.80 - 1.50 mg/dL [facility] Sodium 144 135 - 145 mmol/L [facility] Potassium 3.4(L) 3.5 - 5.0 mmol/L [facility] Comment: Please note: ??Patients with WBC >100,000 may have falsely elevated Potassium levels. ??For accurate Potassium quantification in these patients send serum separator tube (gold top) for subsequent determinations. ??Contact the Clinical Chemistry Laboratory if there are any questions. Chloride 110(H) 98 - 107 mmol/L [facility] Carbon Dioxide 24 22 - 31 mmol/L [facility] Anion Gap 10 5 - 15 mmol/L [facility] Calcium 8.6 8.5 - 10.5 mg/dL [facility] Est Glomerular Filtration Rate 108 >=60 mL/min/1. 73 m?? [facility] Comment: This patient's estimated GFR was [...] and symptoms in addition to eGFR. Blood 11/09/2023 1:50 AM EST 11/09/2023 2:00 AM EST Narrative Resulting Agency Comment Spec In Lab Selma Brian MD CHEMISTRY ORDERABL ES Performing Organization Address City/[facility]/ZIP Co de Phone Number [facility] [place] [address] * Phosphorus (11/09/2023 1:50 AM EST) Pathologist [facility] Phosphorus 3.1 2.5 - 4.5 mg/dL [facility] Blood 11/09/2023 1:50 AM EST 11/09/2023 2:00 AM EST Narrative Resulting Agency Comment Spec In Lab eSlma Brian MD CHEMISTRY ORDERABL ES Performing Organization Address [facility] Co de Phone Number [facility] [place] [address] * Magnesium (11/09/2023 1:50 AM EST) [facility] Magnesium 0.73 0.69 - 1.07 mmol/L [facility] Blood 11/09/2023 1:50 AM EST 11/09/2023 2:00 AM EST Narrative Resulting Agency Comment Spec In Lab Selma Brian MD CHEMISTRY ORDERABL ES Performing Organization Address [facility] de Phone Number [facility] [place] [address] * Differential, Automated (11/08/2023 4:20 PM EST) [facility] Neutrophil % 67.6 % [facility] Neutrophil Absolute 4.79 1.70 - 6.10 x10(3)/[facility] Lymph % 19.4 % [facility] Lymphocytes Abs 1.4 0.9 - 3.2 x10(3)/[facility] Monocyte % 9.3 % [facility] Monocyte Abs 0.7 0.3 - 0.9 x10(3)/[facility] Eos % 2.7 % [facility] Eosinophils Abs 0.2 0.0 - 0.4 x10(3)/[facility] Basophil % 0.6 % [facility] Baso Absolute 0.0 0.0 - 0.1 x10(3)/[facility] Immature Gran % 0.40 % [facility] Comment: Immature granulocytes(IG's)percentage and absolute count will include metamyelocytes, myelocytes, and promyelocytes. Blood smears from CBCs yielding IG's will be scanned manually for concordance. If this scan disagrees with the automated IG or if promyelocytes are noted, a manual differential will be performed. Immature Gran Absolute 0.03 0.00 - 0.04 x10(3)/mcL [facility] Blood 11/08/2023 4:20 PM EST 11/08/2023 4:25 PM EST Narrative Resulting Agency Comment Spec In Lab Monty OMER HEMATOLOGY ORDERABLE S [facility] [place] [address] * (ABNORMAL) Hemogram (11/08/2023 4:20 PM EST) White Blood Cell 7.1 4.0 - 9.5 x10(3)/mc L [facility] Red Blood Cell 3.19(L) 4.58 - 5.54 x10(6)/mc L [facility] Hemoglobin 9.3(L) 13.7 - 16.5 g/dL [facility] Hematocrit 28.9(L) 40.5 - 48.5 % [facility] Mean Cell Volume 90.6 82.9 - 93.1 fL [facility] Mean Cell Hemoglobin 29.2 27.5 - 32.1 pg [facility] Mean Cell Hemoglobin Concentration 32.2 32.0 - 35.7 g/dL [facility] Platelet 439(H) 145 - 357 x10(3)/mc L [facility] RDW Standard Deviation 45.9(H) 36.0 - 45.0 fL [facility] RDW coefficient of variation 14.1(H) 11.4 - 13.8 % [facility] Mean Platelet Volume 9.7 7.6 - 12.9 fL [facility] NRBC% auto 0.0 % [facility] NRBC Absolute 0.000 0.000 - 0.000 x10(3)/mc L [facility] Blood 11/08/2023 4:20 PM EST 11/08/2023 4:25 PM EST Narrative Resulting Agency Comment Spec In Lab Monty OMER HEMATOLOGY ORDERABLE S [facility] [place] [address] * (ABNORMAL) Basic Metabolic Panel (non-fasting) (11/08/2023 4:20 PM EST) Glucose 92 65 - 199 mg/dL [facility] Comment:Diabetes: >=200 mg/d L plus symptoms Blood Urea Nitrogen 9(L) 10 - 20 mg/dL [facility] Creatinine 0.70(L) 0.80 - 1.50 mg/dL [facility] Sodium 144 135 - 145 mmol/L [facility] Potassium 3.9 3.5 - 5.0 mmol/L [facility] Comment: Please note: ??Patients with WBC >100,000 may have falsely elevated Potassium levels. ??For accurate Potassium quantification in these patients send serum separator tube (gold top) for subsequent determinations. ??Contact the Clinical Chemistry Laboratory if there are any questions. Chloride 109(H) 98 - 107 mmol/L [facility] Carbon Dioxide 25 22 - 31 mmol/L [facility] Anion Gap 10 5 - 15 mmol/L [facility] Calcium 8.7 8.5 - 10.5 mg/dL [facility] Est Glomerular Filtration Rate 108 >=60 mL/min/1. 73 m?? [facility] Comment: This patient's estimated GFR was [...] and symptoms in addition to eGFR. Blood 11/08/2023 4:20 PM EST 11/08/2023 4:25 PM EST Narrative Resulting Agency Comment Spec In Lab Selma Brian MD CHEMISTRY ORDERABL ES Performing Organization Address [facility] Co de Phone Number [facility] [place] [address] * Phosphorus (11/08/2023 4:20 PM EST) Phosphorus 3.0 2.5 - 4.5 mg/dL [facility] Blood 11/08/2023 4:20 PM EST 11/08/2023 4:25 PM EST Narrative Resulting Agency Comment Spec In Lab Selma Brian MD CHEMISTRY ORDERABL ES Performing Organization Address [facility] Co de Phone Number [facility] [place] [address] * Magnesium (11/08/2023 4:20 PM EST) Magnesium 0.71 0.69 - 1.07 mmol/L [facility] Blood 11/08/2023 4:20 PM EST 11/08/2023 4:25 PM EST Narrative Resulting Agency Comment Spec In Lab Selma Brian MD CHEMISTRY ORDERABL ES Performing Organization Address [facility] Phone Number [facility] [place] [address] * (ABNORMAL) Differential, Automated (11/07/2023 6:33 AM EST) Neutrophil % 70.2 % [facility] Neutrophil Absolute 4.31 1.70 - 6.10 x10(3)/mc L [facility] Lymph % 18.2 % [facility] [place] Lymphocytes Abs 1.1 0.9 - 3.2 x10(3)/mc L [facility] Monocyte % 7.5 % [facility] Monocyte Abs 0.5 0.3 - 0.9 x10(3)/mc L [facility] Eos % 2.8 % [facility] Eosinophils Abs 0.2 0.0 - 0.4 x10(3)/mc L [facility] Basophil % 0.5 % [facility] Baso Absolute 0.0 0.0 - 0.1 x10(3)/mc L [facility] Immature Gran % 0.80 % [facility] Comment: Immature granulocytes(IG's)percentage and absolute count will include metamyelocytes, myelocytes, and promyelocytes. Blood smears from CBCs yielding IG's will be scanned manually for concordance. If this scan disagrees with the automated IG or if promyelocytes are noted, a manual differential will be performed. Immature Gran Absolute 0.05(H) 0.00 - 0.04 x10(3)/mc L [facility] Blood 11/07/2023 6:33 AM EST 11/07/2023 6:50 AM EST Narrative Resulting Agency Comment Spec In Lab Monty OMER HEMATOLOGY ORDERABLE S Performing Organization Address City/State/[facility] Co de Phone Number [facility] [place] [address] * (ABNORMAL) Hemogram (11/07/2023 6:33 AM EST) White Blood Cell 6.1 4.0 - 9.5 x10(3)/mc L [facility] Red Blood Cell 2.80(L) 4.58 - 5.54 x10(6)/mc L [facility] Hemoglobin 8.8(L) 13.7 - 16.5 g/dL [facility] Hematocrit 26.6(L) 40.5 - 48.5 % [facility] Mean Cell Volume 95.0(H) 82.9 - 93.1 fL [facility] Mean Cell Hemoglobin 31.4 27.5 - 32.1 pg [facility] Mean Cell Hemoglobin Concentration 33.1 32.0 - 35.7 g/dL [facility] Platelet 433(H) 145 - 357 x10(3)/mc L [facility] RDW Standard Deviation 46.6(H) 36.0 - 45.0 fL [facility] RDW coefficient of variation 13.9(H) 11.4 - 13.8 % [facility] Mean Platelet Volume 9.8 7.6 - 12.9 fL [facility] NRBC% auto 0.0 % [facility] NRBC Absolute 0.000 0.000 - 0.000 x10(3)/mc L [facility] Blood 11/07/2023 6:33 AM EST 11/07/2023 6:50 AM EST Narrative Resulting Agency Comment Spec In Lab Monty OMER HEMATOLOGY ORDERABLE S [facility] [place] [address] * (ABNORMAL) Basic Metabolic Panel (non-fasting) (11/07/2023 6:33 AM EST) Glucose 89 65 - 199 mg/dL [facility] Comment:Diabetes: >=200 mg/d L plus symptoms Blood Urea Nitrogen 7(L) 10 - 20 mg/dL [facility] Creatinine 0.57(L) 0.80 - 1.50 mg/dL [facility] Sodium 143 135 - 145 mmol/L [facility] Potassium 3.6 3.5 - 5.0 mmol/L [facility] Comment: Please note: ??Patients with WBC >100,000 may have falsely elevated Potassium levels. ??For accurate Potassium quantification in these patients send serum separator tube (gold top) for subsequent determinations. ??Contact the Clinical Chemistry Laboratory if there are any questions. Chloride 108(H) 98 - 107 mmol/L [facility] Carbon Dioxide 25 22 - 31 mmol/L [facility] Anion Gap 10 5 - 15 mmol/L [facility] Calcium 9.0 8.5 - 10.5 mg/dL [facility] Est Glomerular Filtration Rate 115 >=60 mL/min/1. 73 m?? [facility] Comment: This patient's estimated GFR was [...] and symptoms in addition to eGFR. Blood 11/07/2023 6:33 AM EST 11/07/2023 6:50 AM EST Narrative Resulting Agency Comment Spec In Lab Selma Brian MD CHEMISTRY ORDERABL ES Performing Organization Address [facility] Phone Number [facility] [place] [address] * Phosphorus (11/07/2023 6:33 AM EST) Phosphorus 3.3 2.5 - 4.5 mg/dL [facility] Blood 11/07/2023 6:33 AM EST 11/07/2023 6:50 AM EST Narrative Resulting Agency Comment Spec In Lab Selma Brian MD CHEMISTRY ORDERABL ES Performing Organization Address [facility] Phone Number [facility] [place] [address] * Magnesium (11/07/2023 6:33 AM EST) Magnesium 0.75 0.69 - 1.07 mmol/L [facility] Blood 11/07/2023 6:33 AM EST 11/07/2023 6:50 AM EST Narrative Resulting Agency Comment Spec In Lab Selma Brian MD CHEMISTRY ORDERABL ES Performing Organization Address [facility] Phone Number [facility] [place] [address] * (ABNORMAL) Differential, Automated (11/06/2023 1:00 AM EST) Neutrophil % 77.6 % [facility] Neutrophil Absolute 6.21(H) 1.70 - 6.10 x10(3)/mc L [facility] Lymph % 13.9 % [facility] [place] [facility] Lymphocytes Abs 1.1 0.9 - 3.2 x10(3)/mc L [facility] Monocyte % 6.6 % [facility] Monocyte Abs 0.5 0.3 - 0.9 x10(3)/mc L [facility] Eos % 1.2 % [facility] Eosinophils Abs 0.1 0.0 - 0.4 x10(3)/mc L [facility] Basophil % 0.2 % [facility] Baso Absolute 0.0 0.0 - 0.1 x10(3)/mc L [facility] Immature Gran % 0.50 % [facility] Comment: Immature granulocytes(IG's)percentage and absolute count will include metamyelocytes, myelocytes, and promyelocytes. Blood smears from CBCs yielding IG's will be scanned manually for concordance. If this scan disagrees with the automated IG or if promyelocytes are noted, a manual differential will be performed. Immature Gran Absolute 0.04 0.00 - 0.04 x10(3)/ L [facility] Blood 11/06/2023 1:00 AM EST 11/06/2023 1:20 AM EST Narrative Resulting Agency Comment Spec In Lab Monty OMER HEMATOLOGY ORDERABLE S Performing Organization Address City/State/[facility] Co de Phone Number [facility] [place] [address] * (ABNORMAL) Hemogram (11/06/2023 1:00 AM EST) White Blood Cell 8.0 4.0 - 9.5 x10(3)/mc L [facility] Red Blood Cell 2.56(L) 4.58 - 5.54 x10(6)/mc L [facility] Hemoglobin 8.2(L) 13.7 - 16.5 g/dL [facility] Hematocrit 24.1(L) 40.5 - 48.5 % [facility] Mean Cell Volume 94.1(H) 82.9 - 93.1 fL [facility] Mean Cell Hemoglobin 32.0 27.5 - 32.1 pg [facility] Mean Cell Hemoglobin Concentration 34.0 32.0 - 35.7 g/dL [facility] Platelet 408(H) 145 - 357 x10(3)/mc L [facility] RDW Standard Deviation 45.9(H) 36.0 - 45.0 fL [facility] RDW coefficient of variation 14.0(H) 11.4 - 13.8 % [facility] Mean Platelet Volume 10.0 7.6 - 12.9 fL [facility] NRBC% auto 0.0 % [facility] NRBC Absolute 0.000 0.000 - 0.000 x10(3)/mc L [facility] Blood 11/06/2023 1:00 AM EST 11/06/2023 1:20 AM EST Narrative Resulting Agency Comment Spec In Lab Monty OMER HEMATOLOGY ORDERABLE S [facility] [place] [address] * (ABNORMAL) Basic Metabolic Panel (non-fasting) (11/06/2023 1:00 AM EST) Glucose 132 65 - 199 mg/dL [facility] Comment: Result rechecked - HT Diabetes: >=200 mg/dL plus symptoms Blood Urea Nitrogen 6(L) 10 - 20 mg/dL [facility] Comment:Result rechecked - H T Creatinine 0.63(L) 0.80 - 1.50 mg/dL [facility] Comment:Result rechecked - H T Sodium 143 135 - 145 mmol/L [facility] Comment:Result rechecked - H T Potassium 3.6 3.5 - 5.0 mmol/L [facility] Comment: Result rechecked - HT Please note: ??Patients with WBC >100,000 may have falsely elevated Potassium levels. ??For accurate Potassium quantification in these patients send serum separator tube (gold top) for subsequent determinations. ??Contact the Clinical Chemistry Laboratory if there are any questions. Chloride 106 98 - 107 mmol/L [facility] Comment:Result rechecked - H T Carbon Dioxide 27 22 - 31 mmol/L [facility] Comment:Result rechecked - H T Anion Gap 10 5 - 15 mmol/L [facility] Calcium 8.8 8.5 - 10.5 mg/dL [facility] Comment:Result rechecked - H T Est Glomerular Filtration Rate 112 >=60 mL/min/1. 73 m?? [facility] Comment: This patient's estimated GFR [...] and symptoms in addition to eGFR. Blood 11/06/2023 1:00 AM EST 11/06/2023 1:20 AM EST Narrative Resulting Agency Comment Spec In Lab Selma Brian MD CHEMISTRY ORDERABL ES Performing Organization Address [facility] Co de Phone Number [facility] [place] [address] * Phosphorus (11/06/2023 1:00 AM EST) Phosphorus 3.6 2.5 - 4.5 mg/dL [facility] Comment:Result rechecked - H T Blood 11/06/2023 1:00 AM EST 11/06/2023 1:20 AM EST Narrative Resulting Agency Comment Spec In Lab Selma Brian MD CHEMISTRY ORDERABL ES Performing Organization Address [facility] Co de Phone Number [facility] [place] [address] * Magnesium (11/06/2023 1:00 AM EST) Magnesium 0.81 0.69 - 1.07 mmol/L [facility] Comment:Result rechecked - H T Blood 11/06/2023 1:00 AM EST 11/06/2023 1:20 AM EST Narrative Resulting Agency Comment Spec In Lab Selma Brian MD CHEMISTRY ORDERABL ES Performing Organization Address [facility] Co de Phone Number [facility] [place] [address] * (ABNORMAL) Troponin (11/05/2023 7:40 AM EST) Troponin-T, High Sensitivity 63(H) <=22 ng/L [facility] Comment: This patient's troponin T concentration was determined using the [employer]eline 5th Generation troponin T assay. The 99th percentile for Troponin T for this test is 14 ng/L for females, and 22 ng/L for males. According to the fourth universal definition of myocardial infarction, the term acute myocardial infarction should be used when there is acute myocardial injury with clinical evidence of acute myocardial ischemia and with detection of a rise and/or fall of cardiac troponin values with at least one value above the 99th percentile and at least one of the following: - Symptoms of myocardial ischemia; - New ischemic ECG changes; - Development of pathological Q waves; - Imaging evidence of new loss of viable myocardium or new regional wall motion abnormality in a pattern consistent with an ischemic etiology; - Identification of a coronary thrombus by angiography or autopsy (not for type 2 or 3 MIs) Serial measurement of troponin and the change in troponin concentration over time (delta) is crucial for the diagnosis of acute myocardial infarction. Guidance on the interpretation of the new 5th Generation Troponin T values and the delta troponin value can be found in the [facility] Test Catalog Troponin - [facility] Test Catalog Reference: Fourth Gary Definition of Myocardial Infarction. Journal of the [employer] 2018;72:1927-1919 Blood 11/05/2023 7:40 AM EST 11/05/2023 7:45 AM EST Narrative Resulting Agency Comment Spec In Lab Yessi Lopes MD CHEMISTRY ORDER LORNA [facility] [place] [address] * (ABNORMAL) Differential, Automated (11/05/2023 4:17 AM EST) Neutrophil % 74.6 % [facility] Neutrophil Absolute 6.39(H) 1.70 - 6.10 x10(3)/mc L [facility] Lymph % 14.7 % [facility] Lymphocytes Abs 1.3 0.9 - 3.2 x10(3)/mc L [facility] Monocyte % 6.8 % [facility] Monocyte Abs 0.6 0.3 - 0.9 x10(3)/mc L [facility] Eos % 2.7 % [facility] Eosinophils Abs 0.2 0.0 - 0.4 x10(3)/mc L [facility] Basophil % 0.4 % [facility] Baso Absolute 0.0 0.0 - 0.1 x10(3)/mc L [facility] Immature Gran % 0.80 % [facility] Comment: Immature granulocytes(IG's)percentage and absolute count will include metamyelocytes, myelocytes, and promyelocytes. Blood smears from CBCs yielding IG's will be scanned manually for concordance. If this scan disagrees with the automated IG or if promyelocytes are noted, a manual differential will be performed. Immature Gran Absolute 0.07(H) 0.00 - 0.04 x10(3)/ L [facility] Blood 11/05/2023 4:17 AM EST 11/05/2023 4:38 AM EST Narrative Resulting Agency Comment Spec In Lab Monty OMER HEMATOLOGY ORDERABLE S [facility] [place] [address] * (ABNORMAL) Hemogram (11/05/2023 4:17 AM EST) White Blood Cell 8.6 4.0 - 9.5 x10(3)/mc L [facility] Red Blood Cell 2.78(L) 4.58 - 5.54 x10(6)/ L [facility] Hemoglobin 8.6(L) 13.7 - 16.5 g/dL [facility] Hematocrit 25.7(L) 40.5 - 48.5 % [facility] Mean Cell Volume 92.4 82.9 - 93.1 fL [facility] Mean Cell Hemoglobin 30.9 27.5 - 32.1 pg [facility] Mean Cell Hemoglobin Concentration 33.5 32.0 - 35.7 g/dL [facility] Platelet 429(H) 145 - 357 x10(3)/mc L [facility] RDW Standard Deviation 45.7(H) 36.0 - 45.0 fL [facility] RDW coefficient of variation 13.8 11.4 - 13.8 % [facility] Mean Platelet Volume 10.3 7.6 - 12.9 fL [facility] NRBC% auto 0.0 % [facility] NRBC Absolute 0.000 0.000 - 0.000 x10(3)/mc L [facility] Blood 11/05/2023 4:17 AM EST 11/05/2023 4:38 AM EST Narrative Resulting Agency Comment Spec In Lab Monty OMER HEMATOLOGY ORDERABLE S [facility] [place] [address] * (ABNORMAL) Troponin (11/05/2023 4:17 AM EST) Troponin-T, High Sensitivity 69(H) <=22 ng/L [facility] Comment: This patient's troponin T concentration was determined using the Joseline 5th Generation troponin T assay. The 99th percentile for Troponin T for this test is 14 ng/L for females, and 22 ng/L for males. According to the fourth universal definition of myocardial infarction, the term acute myocardial infarction should be used when there is acute myocardial injury with clinical evidence of acute myocardial ischemia and with detection of a rise and/or fall of cardiac troponin values with at least one value above the 99th percentile and at least one of the following: - Symptoms of myocardial ischemia; - New ischemic ECG changes; - Development of pathological Q waves; - Imaging evidence of new loss of viable myocardium or new regional wall motion abnormality in a pattern consistent with an ischemic etiology; - Identification of a coronary thrombus by angiography or autopsy (not for type 2 or 3 MIs) Serial measurement of troponin and the change in troponin concentration over time (delta) is crucial for the diagnosis of acute myocardial infarction. Guidance on the interpretation of the new 5th Generation Troponin T values and the delta troponin value can be found in the [facility] Test Catalog Troponin - [facility] Test Catalog Reference: Fourth Gary Definition of Myocardial Infarction. Journal of the [employer] 2018;72:2780-2326 Blood 11/05/2023 4:17 AM EST 11/05/2023 4:38 AM EST Narrative Resulting Agency Comment Spec In Lab Yessi Lopes MD CHEMISTRY ORDER LORNA [facility] [place] [address] * (ABNORMAL) Basic Metabolic Panel (non-fasting) (11/05/2023 4:17 AM EST) Glucose 126 65 - 199 mg/dL [facility] Comment:Diabetes: >=200 mg/d L plus symptoms Blood Urea Nitrogen 8(L) 10 - 20 mg/dL [facility] Creatinine 0.57(L) 0.80 - 1.50 mg/dL [facility] Sodium 141 135 - 145 mmol/L [facility] Potassium 3.5 3.5 - 5.0 mmol/L [facility] Comment: Please note: ??Patients with WBC >100,000 may have falsely elevated Potassium levels. ??For accurate Potassium quantification in these patients send serum separator tube (gold top) for subsequent determinations. ??Contact the Clinical Chemistry Laboratory if there are any questions. Chloride 105 98 - 107 mmol/L [facility] Carbon Dioxide 27 22 - 31 mmol/L [facility] Anion Gap 9 5 - 15 mmol/L [facility] Calcium 8.6 8.5 - 10.5 mg/dL [facility] Est Glomerular Filtration Rate 115 >=60 mL/min/1. 73 m?? [facility] Comment: This patient's estimated GFR was [...] and symptoms in addition to eGFR. Blood 11/05/2023 4:17 AM EST 11/05/2023 4:38 AM EST Narrative Resulting Agency Comment Spec In Lab Selma Brian MD CHEMISTRY ORDERABL ES Performing Organization Address [facility] Co de Phone Number [facility] [place] [address] * Phosphorus (11/05/2023 4:17 AM EST) Phosphorus 2.9 2.5 - 4.5 mg/dL [facility] Blood 11/05/2023 4:17 AM EST 11/05/2023 4:38 AM EST Narrative Resulting Agency Comment Spec In Lab Selma Brian MD CHEMISTRY ORDERABL ES Performing Organization Address [facility] Co de Phone Number [facility] [place] [address] * Magnesium (11/05/2023 4:17 AM EST) Magnesium 0.90 0.69 - 1.07 mmol/L [facility] Blood 11/05/2023 4:17 AM EST 11/05/2023 4:38 AM EST Narrative Resulting Agency Comment Spec In Lab Selma Brian MD CHEMISTRY ORDERABL ES Performing Organization Address [facility] de Phone Number [facility] [place] [address] * TSH Rydal (11/05/2023 4:17 AM EST) Thyroid Stimulating Hormone 2.87 0.27 - 4.20 mcIU/mL [facility] Comment: Reference Interval (mcIU/mL): Females: ??First Trimester: 0.23-3.88 ??Second Trimester: 0.22-3.90 ??Third Trimester: 0.44-4.66 Blood 11/05/2023 4:17 AM EST 11/05/2023 4:38 AM EST Narrative Resulting Agency Comment Spec In Lab Yessi Lopes MD CHEMISTRY ORDER LORNA Performing Organization Address City/[facility] Co de Phone Number [facility] [place] [address] * (ABNORMAL) Troponin (11/04/2023 11:50 PM EST) Troponin-T, High Sensitivity 72(H) <=22 ng/L [facility] Comment: This patient's troponin T concentration was determined using the Joseline 5th Generation troponin T assay. The 99th percentile for Troponin T for this test is 14 ng/L for females, and 22 ng/L for males. According to the fourth universal definition of myocardial infarction, the term acute myocardial infarction should be used when there is acute myocardial injury with clinical evidence of acute myocardial ischemia and with detection of a rise and/or fall of cardiac troponin values with at least one value above the 99th percentile and at least one of the following: - Symptoms of myocardial ischemia; - New ischemic ECG changes; - Development of pathological Q waves; - Imaging evidence of new loss of viable myocardium or new regional wall motion abnormality in a pattern consistent with an ischemic etiology; - Identification of a coronary thrombus by angiography or autopsy (not for type 2 or 3 MIs) Serial measurement of troponin and the change in troponin concentration over time (delta) is crucial for the diagnosis of acute myocardial infarction. Guidance on the interpretation of the new 5th Generation Troponin T values and the delta troponin value can be found in the [facility] Test Catalog Troponin - [facility] Test Catalog Reference: Fourth Gary Definition of Myocardial Infarction. Journal of the [employer] 2018;72:4552-6215 Blood 11/04/2023 11:5 0 PM EST 11/04/2023 11:54 PM EST Narrative Resulting Agency Comment Spec In Lab Yessi Lopes MD CHEMISTRY ORDER LORNA [facility] [place] [address] * XR Chest One View (11/04/2023 6:55 PM EST) Anatomical Region Laterality Modality Chest N/A Digital Radiogra phy Impressions 11/04/2023 7:14 PM EST 1. ??Findings consistent with persistent left lower lobe atelectasis/collapse. 2. ??Similar patchy/hazy opacity in the central right lower lobe, atelectasis versus pneumonia or aspiration. 3. ??Possible trace/small pleural effusions. Thank you for letting us participate in the care of this patient. ??If you are a health care provider and have any questions regarding this report, please contact the number below. ??For patients who have questions please contact the health career law clerk that requested your imaging first. ? Electronically signed by: Yoel Galaviz MD, [facility] ??([phone]), at 11/04/2023 7:14 PM Narrative 11/04/2023 7:14 PM EST EXAMINATION: XR CHEST ONE VIEW CLINICAL HISTORY: Acute respiratory decompensation TECHNIQUE: 1 view of the chest COMPARISON: Chest x-ray 11/01/2023 FINDINGS: Left chest port tip terminates in the lower SVC. Persistent dense airspace opacity in the retrocardiac left lung base which likely represents atelectasis/lower lobe collapse. Similar hazy opacity in the central right lower lung. No new focal airspace opacity. Indistinct left costophrenic sulci, possibly small/trace effusions. No pneumothorax. Normal cardiomediastinal silhouette. No evidence of pulmonary edema. Cervicothoracic fusion hardware. No acute osseous abnormality. Procedure Note Yoel Galavzi MD - 11/04/2023 EXAMINATION: XR CHEST ONE VIEW CLINICAL HISTORY: Acute respiratory decompensation TECHNIQUE: 1 view of the chest COMPARISON: Chest x-ray 11/01/2023 FINDINGS: Left chest port tip terminates in the lower SVC. Persistent denseairspace opacity in the retrocardiac left lung base which likely represents atelectasis/lower lobe collapse. Similar hazy opacity in the central rightlower lung. No new focal airspace opacity. Indistinct left costophrenic sulci, possibly small/trace effusions. No pneumothorax. Normalcardiomediastinal silhouette. No evidence of pulmonary edema. Cervicothoracic fusionhardware. No acute osseous abnormality. IMPRESSION 1. Findings consistent with persistent left lower lobeatelectasis/collapse. 2. Similar patchy/hazy opacity in the central right lower lobe,atelectasis versus pneumonia or aspiration. 3. Possible trace/small pleural effusions. Thank you for letting us participate in the care of this patient. If youare a health care provider and have any questions regarding this report,please contact the number below. For patients who have questions please contactthe health career law clerk that requested your imaging first. Electronically signed by: Yoel Galaviz MD, [facility]([phone]), at 11/04/2023 7:14 PM Yessi Lopes MD IMG DX ORDERABL ES * (ABNORMAL) BLOOD GAS 2 VENOUS (11/04/2023 6:42 PM EST) pH, Venous 7.42 7.32 - 7.42 [facility] PCO2, Venous 40(L) 41 - 51 mmHg [facility] PO2, Venous 61(H) 25 - 40 mmHg [facility] Bicarbonate, Venous 25.7 mmol/L [facility] Base Excess, Venous 1.3 mmol/L [facility] Hgb Blood Gas 10.1(L) 13.7 - 16.5 g/dL [facility] Oxyhemoglobin, Venous 90.4 % [facility] Carboxyhemoglob in, Venous 0.2 % [facility] Comment: Nonsmokers: 0.5-1.5% COHB Smokers: Variable, but usually less than 10% Toxic: 20-30% COHB Lethal: Greater than 60% COHB Methemoglobin, Venous 0.4 <=1.5 % [facility] Na Whole Blood 138 135 - 145 mmol/L [facility] K Whole Blood 3.6 3.5 - 5.0 mmol/L [facility] Comment: Please note: Patients with WBC >100,000 may have falsely elevated Potassium levels. Contact the Clinical Chemistry Laboratory if there are any questions. ICa Whole Blood 1.20 1.15 - 1.33 mmol/L [facility] Comment: Note: ??Total bilirubin higher than 20 mg/dL may lead to falsely low ionized calcium. CL Whole Blood 105 98 - 107 mmol/L [facility] Gluc Whole Bld 116 65 - 199 mg/dL [facility] Comment:Diabetes: >=200 mg/d L plus symptoms Lactate WB 1.3 0.5 - 2.2 mmol/L [facility] Flow, Drake 6.0 LPM [facility] Blood Gas Source Venous [facility] Blood 11/04/2023 6:42 PM EST 11/04/2023 6:42 PM EST Yessi Lopes MD POINT OF CARE T EST ORDERABLES [facility] [place] [address] * (ABNORMAL) Troponin (11/04/2023 6:30 PM EST) Troponin-T, High Sensitivity 60(H) <=22 ng/L [facility] Comment: This patient's troponin T concentration was determined using the Joseline 5th Generation troponin T assay. The 99th percentile for Troponin T for this test is 14 ng/L for females, and 22 ng/L for males. According to the fourth universal definition of myocardial infarction, the term acute myocardial infarction should be used when there is acute myocardial injury with clinical evidence of acute myocardial ischemia and with detection of a rise and/or fall of cardiac troponin values with at least one value above the 99th percentile and at least one of the following: - Symptoms of myocardial ischemia; - New ischemic ECG changes; - Development of pathological Q waves; - Imaging evidence of new loss of viable myocardium or new regional wall motion abnormality in a pattern consistent with an ischemic etiology; - Identification of a coronary thrombus by angiography or autopsy (not for type 2 or 3 MIs) Serial measurement of troponin and the change in troponin concentration over time (delta) is crucial for the diagnosis of acute myocardial infarction. Guidance on the interpretation of the new 5th Generation Troponin T values and the delta troponin value can be found in the [facility] Test Catalog Troponin - [facility] Test Catalog Reference: Fourth Gary Definition of Myocardial Infarction. Journal of the [employer] 2018;72:[id number] Blood 11/04/2023 6:30 PM EST 11/04/2023 7:06 PM EST Narrative Resulting Agency Comment Spec In Lab Yessi Lopes MD CHEMISTRY ORDER LORNA Performing Organization Address City/[facility]/[place] [address] * (ABNORMAL) Differential, Automated (11/04/2023 6:30 PM EST) Neutrophil % 81.4 % [facility] Neutrophil Absolute 8.48(H) 1.70 - 6.10 x10(3)/mc L [facility] Lymph % 11.0 % [facility] Lymphocytes Abs 1.1 0.9 - 3.2 x10(3)/mc L [facility] Monocyte % 5.1 % [facility] Monocyte Abs 0.5 0.3 - 0.9 x10(3)/mc L [facility] Eos % 2.0 % [facility] Eosinophils Abs 0.2 0.0 - 0.4 x10(3)/mc L [facility] Basophil % 0.2 % [facility] Baso Absolute 0.0 0.0 - 0.1 x10(3)/mc L [facility] Immature Gran % 0.30 % [facility] Comment: Immature granulocytes(IG's)percentage and absolute count will include metamyelocytes, myelocytes, and promyelocytes. Blood smears from CBCs yielding IG's will be scanned manually for concordance. If this scan disagrees with the automated IG or if promyelocytes are noted, a manual differential will be performed. Immature Gran Absolute 0.03 0.00 - 0.04 x10(3)/mc L [facility] Blood 11/04/2023 6:30 PM EST 11/04/2023 6:36 PM EST Narrative Resulting Agency Comment Spec In Lab Jose Machado MD HEMATOLOGY ORDER LORNA Performing Organization Address City/[facility]/ZIP Co de Phone Number [facility] [place] [address] * (ABNORMAL) Hemogram (11/04/2023 6:30 PM EST) White Blood Cell 10.4(H) 4.0 - 9.5 x10(3)/mc L [facility] Red Blood Cell 2.93(L) 4.58 - 5.54 x10(6)/mc L [facility] Hemoglobin 8.8(L) 13.7 - 16.5 g/dL [facility] Hematocrit 26.7(L) 40.5 - 48.5 % [facility] Mean Cell Volume 91.1 82.9 - 93.1 fL [facility] Mean Cell Hemoglobin 30.0 27.5 - 32.1 pg [facility] Mean Cell Hemoglobin Concentration 33.0 32.0 - 35.7 g/dL [facility] Platelet 393(H) 145 - 357 x10(3)/mc L [facility] RDW Standard Deviation 44.7 36.0 - 45.0 fL [facility] RDW coefficient of variation 13.6 11.4 - 13.8 % [facility] Mean Platelet Volume 10.0 7.6 - 12.9 fL [facility] NRBC% auto 0.0 % [facility] NRBC Absolute 0.000 0.000 - 0.000 x10(3)/mc L [facility] Blood 11/04/2023 6:30 PM EST 11/04/2023 6:36 PM EST Narrative Resulting Agency Comment Spec In Lab Jose Machado MD HEMATOLOGY ORDER LORNA [facility] [place] [address] * Lactate, whole blood, send to lab ([facility]) (11/04/2023 6:30 PM EST) Lactate WB 1.4 0.5 - 2.2 mmol/L [facility] Blood 11/04/2023 6:30 PM EST 11/04/2023 6:36 PM EST Narrative Resulting Agency Comment Spec In Lab Yessi Lopes MD CHEMISTRY ORDER LORNA [facility] [place] [address] * Phosphorus (11/04/2023 6:30 PM EST) Phosphorus 2.6 2.5 - 4.5 mg/dL [facility] Blood 11/04/2023 6:30 PM EST 11/04/2023 6:36 PM EST Narrative Resulting Agency Comment Spec In Lab Yessi Lopes MD CHEMISTRY ORDER LORNA Performing Organization Address City/[facility]/ZIP Co de Phone Number [facility] [place] [address] * Magnesium (11/04/2023 6:30 PM EST) Magnesium 0.76 0.69 - 1.07 mmol/L [facility] Blood 11/04/2023 6:30 PM EST 11/04/2023 6:36 PM EST Narrative Resulting Agency Comment Spec In Lab Yessi Lopes MD CHEMISTRY ORDER LORNA Performing Organization Address [facility] Co de Phone Number [facility] [place] [address] * (ABNORMAL) Basic Metabolic Panel (non-fasting) (11/04/2023 6:30 PM EST) Glucose 108 65 - 199 mg/dL [facility] Comment:Diabetes: >=200 mg/d L plus symptoms Blood Urea Nitrogen 8(L) 10 - 20 mg/dL [facility] Creatinine 0.59(L) 0.80 - 1.50 mg/dL [facility] Sodium 142 135 - 145 mmol/L [facility] Potassium 3.9 3.5 - 5.0 mmol/L [facility] Comment: Please note: ??Patients with WBC >100,000 may have falsely elevated Potassium levels. ??For accurate Potassium quantification in these patients send serum separator tube (gold top) for subsequent determinations. ??Contact the Clinical Chemistry Laboratory if there are any questions. Chloride 107 98 - 107 mmol/L [facility] Carbon Dioxide 23 22 - 31 mmol/L [facility] Anion Gap 12 5 - 15 mmol/L [facility] Calcium 8.7 8.5 - 10.5 mg/dL [facility] Est Glomerular Filtration Rate 114 >=60 mL/min/1. 73 m?? [facility] Comment: This patient's estimated GFR was [...] and symptoms in addition to eGFR. Blood 11/04/2023 6:30 PM EST 11/04/2023 6:36 PM EST Narrative Resulting Agency Comment Spec In Lab Yessi Lopes MD CHEMISTRY ORDER LORNA [facility] [place] [address] * EKG 12 Lead (11/04/2023 6:20 PM EST) Ventricular rate 77 BPM MUSE SYSTEM Atrial Rate 77 BPM MUSE SYSTEM P-R Interval 148 ms MUSE SYSTEM QRS Duration 94 ms MUSE SYSTEM Q-T Interval 418 ms MUSE SYSTEM QTC Calculated (Bezet) 473 ms MUSE SYSTEM Calculated P [place] 79 degrees MUSE SYSTEM Calculated R [place] 23 degrees MUSE SYSTEM Calculated T [place] 71 degrees MUSE SYSTEM INTERPRETATION Normal sinus rhythm Incomplete right bundle branch block Borderline ECG When compared with ECG of 01-NOV-2023 13:44, Non-specific change in ST segment in Anterior leads Nonspecific T wave abnormality no longer evident in Anterior leads Confirmed by MD Yumiko, Jeff Hopkins ([id number]) on 11/06/2023 3:01:32 PM MUSE SYSTEM 11/04/2023 6:20 PM EST 11/06/2023 3:01 PM EST Yessi Lopes MD ECG ORDERABLES M[facility] SYSTEM * (ABNORMAL) Differential, Automated (11/04/2023 1:55 AM EST) Neutrophil % 73.5 % [facility] Neutrophil Absolute 7.14(H) 1.70 - 6.10 x10(3)/mc L [facility] Lymph % 16.8 % [facility] Lymphocytes Abs 1.6 0.9 - 3.2 x10(3)/mc L [facility] Monocyte % 6.8 % [facility] Monocyte Abs 0.7 0.3 - 0.9 x10(3)/[facility] Eos % 2.0 % [facility] Eosinophils Abs 0.2 0.0 - 0.4 x10(3)/[facility] Basophil % 0.1 % [facility] Baso Absolute 0.0 0.0 - 0.1 x10(3)/ L [facility] Immature Gran % 0.80 % [facility] Comment: Immature granulocytes(IG's)percentage and absolute count will include metamyelocytes, myelocytes, and promyelocytes. Blood smears from CBCs yielding IG's will be scanned manually for concordance. If this scan disagrees with the automated IG or if promyelocytes are noted, a manual differential will be performed. Immature Gran Absolute 0.08(H) 0.00 - 0.04 x10(3)/ L [facility] Blood 11/04/2023 1:55 AM EST 11/04/2023 2:01 AM EST Narrative Resulting Agency Comment Spec In Lab Monty OMER HEMATOLOGY ORDERABLE S [facility] [place] [address] * (ABNORMAL) Hemogram (11/04/2023 1:55 AM EST) White Blood Cell 9.7(H) 4.0 - 9.5 x10(3)/ L [facility] Red Blood Cell 2.91(L) 4.58 - 5.54 x10(6)/mc L [facility] Hemoglobin 8.7(L) 13.7 - 16.5 g/dL [facility] Hematocrit 26.3(L) 40.5 - 48.5 % [facility] Mean Cell Volume 90.4 82.9 - 93.1 fL [facility] Mean Cell Hemoglobin 29.9 27.5 - 32.1 pg [facility] Mean Cell Hemoglobin Concentration 33.1 32.0 - 35.7 g/dL [facility] Platelet 363(H) 145 - 357 x10(3)/mc L [facility] RDW Standard Deviation 45.6(H) 36.0 - 45.0 fL [facility] RDW coefficient of variation 13.8 11.4 - 13.8 % [facility] Mean Platelet Volume 9.9 7.6 - 12.9 fL [facility] NRBC% auto 0.0 % [facility] NRBC Absolute 0.000 0.000 - 0.000 x10(3)/mc L [facility] Blood 11/04/2023 1:55 AM EST 11/04/2023 2:01 AM EST Narrative Resulting Agency Comment Spec In Lab Monty OMER HEMATOLOGY ORDERABLE S [facility] [place] [address] * (ABNORMAL) Basic Metabolic Panel (non-fasting) (11/04/2023 1:55 AM EST) Glucose 98 65 - 199 mg/dL [facility] Comment:Diabetes: >=200 mg/d L plus symptoms Blood Urea Nitrogen 8(L) 10 - 20 mg/dL [facility] Creatinine 0.60(L) 0.80 - 1.50 mg/dL [facility] Sodium 143 135 - 145 mmol/L [facility] Potassium 3.7 3.5 - 5.0 mmol/L [facility] Comment: Please note: ??Patients with WBC >100,000 may have falsely elevated Potassium levels. ??For accurate Potassium quantification in these patients send serum separator tube (gold top) for subsequent determinations. ??Contact the Clinical Chemistry Laboratory if there are any questions. Chloride 107 98 - 107 mmol/L [facility] Carbon Dioxide 26 22 - 31 mmol/L [facility] Anion Gap 10 5 - 15 mmol/L [facility] Calcium 8.7 8.5 - 10.5 mg/dL [facility] Est Glomerular Filtration Rate 113 >=60 mL/min/1. 73 m?? [facility] Comment: This patient's estimated GFR was [...] and symptoms in addition to eGFR. Blood 11/04/2023 1:55 AM EST 11/04/2023 2:01 AM EST Narrative Resulting Agency Comment Spec In Lab Selma Brian MD CHEMISTRY ORDERABL ES Performing Organization Address City/[facility] Co de Phone Number [facility] [place] [address] * Phosphorus (11/04/2023 1:55 AM EST) Phosphorus 2.9 2.5 - 4.5 mg/dL [facility] Blood 11/04/2023 1:55 AM EST 11/04/2023 2:01 AM EST Narrative Resulting Agency Comment Spec In Lab Selma Brian MD CHEMISTRY ORDERABL ES Performing Organization Address City/[facility] Co de Phone Number [facility] [place] [address] * Magnesium (11/04/2023 1:55 AM EST) Magnesium 0.78 0.69 - 1.07 mmol/L [facility] Blood 11/04/2023 1:55 AM EST 11/04/2023 2:01 AM EST Narrative Resulting Agency Comment Spec In Lab Selma Brian MD CHEMISTRY ORDERABL ES Performing Organization Address City/[facility]/ZIP Co de Phone Number [facility] [place] [address] * (ABNORMAL) Differential, Automated (11/03/2023 1:15 AM EST) Neutrophil % 75.0 % [facility] Neutrophil Absolute 7.54(H) 1.70 - 6.10 x10(3)/mc L [facility] Lymph % 15.7 % [facility] Lymphocytes Abs 1.6 0.9 - 3.2 x10(3)/mc L [facility] Monocyte % 6.5 % [facility] Monocyte Abs 0.6 0.3 - 0.9 x10(3)/mc L [facility] Eos % 1.9 % [facility] Eosinophils Abs 0.2 0.0 - 0.4 x10(3)/mc L [facility] Basophil % 0.2 % [facility] Baso Absolute 0.0 0.0 - 0.1 x10(3)/mc L [facility] Immature Gran % 0.70 % [facility] Comment: Immature granulocytes(IG's)percentage and absolute count will include metamyelocytes, myelocytes, and promyelocytes. Blood smears from CBCs yielding IG's will be scanned manually for concordance. If this scan disagrees with the automated IG or if promyelocytes are noted, a manual differential will be performed. Immature Gran Absolute 0.07(H) 0.00 - 0.04 x10(3)/mc L [facility] Blood 11/03/2023 1:15 AM EST 11/03/2023 1:25 AM EST Narrative Resulting Agency Comment Spec In Lab Monty OMER HEMATOLOGY ORDERABLE S Performing Organization Address City/[facility]/ZIP Co de Phone Number [facility] [place] [address] * (ABNORMAL) Hemogram (11/03/2023 1:15 AM EST) White Blood Cell 10.0(H) 4.0 - 9.5 x10(3)/mc L [facility] Red Blood Cell 3.01(L) 4.58 - 5.54 x10(6)/mc L [facility] Hemoglobin 8.7(L) 13.7 - 16.5 g/dL [facility] Hematocrit 27.0(L) 40.5 - 48.5 % [facility] Mean Cell Volume 89.7 82.9 - 93.1 fL [facility] Mean Cell Hemoglobin 28.9 27.5 - 32.1 pg [facility] Mean Cell Hemoglobin Concentration 32.2 32.0 - 35.7 g/dL [facility] Platelet 331 145 - 357 x10(3)/mc L [facility] RDW Standard Deviation 45.6(H) 36.0 - 45.0 fL [facility] RDW coefficient of variation 13.9(H) 11.4 - 13.8 % [facility] Mean Platelet Volume 9.6 7.6 - 12.9 fL [facility] NRBC% auto 0.0 % [facility] NRBC Absolute 0.000 0.000 - 0.000 x10(3)/ L [facility] Blood 11/03/2023 1:15 AM EST 11/03/2023 1:25 AM EST Narrative Resulting Agency Comment Spec In Lab Monty OMER HEMATOLOGY ORDERABLE S Performing Organization Address City/State/[facility] Co de Phone Number [facility] [place] [address] * (ABNORMAL) Basic Metabolic Panel (non-fasting) (11/03/2023 1:15 AM EST) Glucose 105 65 - 199 mg/dL [facility] Comment:Diabetes: >=200 mg/d L plus symptoms Blood Urea Nitrogen 6(L) 10 - 20 mg/dL [facility] Creatinine 0.59(L) 0.80 - 1.50 mg/dL [facility] Sodium 140 135 - 145 mmol/L [facility] Potassium 3.8 3.5 - 5.0 mmol/L [facility] Comment: Please note: ??Patients with WBC >100,000 may have falsely elevated Potassium levels. ??For accurate Potassium quantification in these patients send serum separator tube (gold top) for subsequent determinations. ??Contact the Clinical Chemistry Laboratory if there are any questions. Chloride 104 98 - 107 mmol/L [facility] Carbon Dioxide 26 22 - 31 mmol/L [facility] Anion Gap 10 5 - 15 mmol/L [facility] Calcium 8.7 8.5 - 10.5 mg/dL [facility] Est Glomerular Filtration Rate 114 >=60 mL/min/1. 73 m?? [facility] Comment: This patient's estimated GFR was [...] and symptoms in addition to eGFR. Blood 11/03/2023 1:15 AM EST 11/03/2023 1:25 AM EST Narrative Resulting Agency Comment Spec In Lab Selma Brian MD CHEMISTRY ORDERABL ES Performing Organization Address [facility] Co de Phone Number [facility] [place] [address] * Phosphorus (11/03/2023 1:15 AM EST) Phosphorus 2.9 2.5 - 4.5 mg/dL [facility] Blood 11/03/2023 1:15 AM EST 11/03/2023 1:25 AM EST Narrative Resulting Agency Comment Spec In Lab Selma Brian MD CHEMISTRY ORDERABL ES Performing Organization Address City/[facility]/ZIP Co de Phone Number [facility] [place] [address] * Magnesium (11/03/2023 1:15 AM EST) Magnesium 0.85 0.69 - 1.07 mmol/L [facility] Blood 11/03/2023 1:15 AM EST 11/03/2023 1:25 AM EST Narrative Resulting Agency Comment Spec In Lab Selma Brian MD CHEMISTRY ORDERABL ES [facility] [place] [address] * (ABNORMAL) Differential, Automated (11/02/2023 12:45 AM EST) Neutrophil % 79.7 % [facility] Neutrophil Absolute 8.12(H) 1.70 - 6.10 x10(3)/mc L [facility] Lymph % 12.6 % [facility] Lymphocytes Abs 1.3 0.9 - 3.2 x10(3)/mc L [facility] Monocyte % 5.8 % [facility] Monocyte Abs 0.6 0.3 - 0.9 x10(3)/mc L [facility] Eos % 1.1 % [facility] Eosinophils Abs 0.1 0.0 - 0.4 x10(3)/mc L [facility] Basophil % 0.2 % [facility] Baso Absolute 0.0 0.0 - 0.1 x10(3)/mc L [facility] Immature Gran % 0.60 % [facility] Comment: Immature granulocytes(IG's)percentage and absolute count will include metamyelocytes, myelocytes, and promyelocytes. Blood smears from CBCs yielding IG's will be scanned manually for concordance. If this scan disagrees with the automated IG or if promyelocytes are noted, a manual differential will be performed. Immature Gran Absolute 0.06(H) 0.00 - 0.04 x10(3)/mc L [facility] Blood 11/02/2023 12:4 5 AM EST 11/02/2023 12:50 AM EST Narrative Resulting Agency Comment Spec In Lab Monty OMER HEMATOLOGY ORDERABLE S [facility] [place] [address] * (ABNORMAL) Hemogram (11/02/2023 12:45 AM EST) White Blood Cell 10.2(H) 4.0 - 9.5 x10(3)/mc L [facility] Red Blood Cell 2.96(L) 4.58 - 5.54 x10(6)/mc L [facility] Hemoglobin 8.8(L) 13.7 - 16.5 g/dL [facility] Hematocrit 26.6(L) 40.5 - 48.5 % [facility] Mean Cell Volume 89.9 82.9 - 93.1 fL [facility] Mean Cell Hemoglobin 29.7 27.5 - 32.1 pg [facility] Mean Cell Hemoglobin Concentration 33.1 32.0 - 35.7 g/dL [facility] Platelet 316 145 - 357 x10(3)/mc L [facility] RDW Standard Deviation 46.0(H) 36.0 - 45.0 fL [facility] RDW coefficient of variation 13.9(H) 11.4 - 13.8 % [facility] Mean Platelet Volume 9.9 7.6 - 12.9 fL [facility] NRBC% auto 0.0 % [facility] NRBC Absolute 0.000 0.000 - 0.000 x10(3)/mc L [facility] Blood 11/02/2023 12:4 5 AM EST 11/02/2023 12:50 AM EST Narrative Resulting Agency Comment Spec In Lab Monty OMER HEMATOLOGY ORDERABLE S [facility] [place] [address] * (ABNORMAL) Basic Metabolic Panel (non-fasting) (11/02/2023 12:45 AM EST) Glucose 146 65 - 199 mg/dL [facility] Comment:Diabetes: >=200 mg/d L plus symptoms Blood Urea Nitrogen 7(L) 10 - 20 mg/dL [facility] Creatinine 0.67(L) 0.80 - 1.50 mg/dL [facility] Sodium 139 135 - 145 mmol/L [facility] Potassium 3.9 3.5 - 5.0 mmol/L [facility] Comment: Please note: ??Patients with WBC >100,000 may have falsely elevated Potassium levels. ??For accurate Potassium quantification in these patients send serum separator tube (gold top) for subsequent determinations. ??Contact the Clinical Chemistry Laboratory if there are any questions. Chloride 103 98 - 107 mmol/L [facility] Carbon Dioxide 27 22 - 31 mmol/L [facility] Anion Gap 9 5 - 15 mmol/L [facility] Calcium 8.2(L) 8.5 - 10.5 mg/dL [facility] Est Glomerular Filtration Rate 110 >=60 mL/min/1. 73 m?? [facility] Comment: This patient's estimated GFR was [...] and symptoms in addition to eGFR. Blood 11/02/2023 12:4 5 AM EST 11/02/2023 12:50 AM EST Narrative Resulting Agency Comment Spec In Lab Selma Brian MD CHEMISTRY ORDERABL ES Performing Organization Address City/[facility] Co de Phone Number [facility] [place] [address] * (ABNORMAL) Phosphorus (11/02/2023 12:45 AM EST) Phosphorus 2.4(L) 2.5 - 4.5 mg/dL [facility] Blood 11/02/2023 12:4 5 AM EST 11/02/2023 12:50 AM EST Narrative Resulting Agency Comment Spec In Lab Selma Brian MD CHEMISTRY ORDERABL ES Performing Organization Address [facility] Co de Phone Number [facility] [place] [address] * Magnesium (11/02/2023 12:45 AM EST) Pathologist [facility] Magnesium 0.88 0.69 - 1.07 mmol/L [facility] Blood 11/02/2023 12:4 5 AM EST 11/02/2023 12:50 AM EST Narrative Resulting Agency Comment Spec In Lab Selma Brian MD CHEMISTRY ORDERABL ES Performing Organization Address [facility] de Phone Number [facility] [place] [address] * POCT Glucose (11/01/2023 7:51 PM EST) [facility] Glucose, POC 129 65 - 199 mg/dL [facility] Comment: Supplemental ranges: <140 mg/dL before meals <180 mg/dL all other times of the day Blood 11/01/2023 7:51 PM EST 11/01/2023 7:51 PM EST Yessi Lopes MD POINT OF CARE T EST ORDERABLES Performing Organization Address [facility] de Phone Number [facility] [place] [address] * Lactate, whole blood, send to lab ([facility]) (11/01/2023 4:09 PM EST) [facility] Lactate WB 0.8 0.5 - 2.2 mmol/L [facility] Blood 11/01/2023 4:09 PM EST 11/01/2023 4:15 PM EST Narrative Resulting Agency Comment Spec In Lab Yessi Lopes MD CHEMISTRY ORDER LORNA Performing Organization Address [facility] Co de Phone Number [facility] [place] [address] * (ABNORMAL) Troponin (11/01/2023 4:09 PM EST) [facility] Troponin-T, High Sensitivity 60(H) <=22 ng/L [facility] Comment: This patient's troponin T concentration was determined using the Joseline 5th Generation troponin T assay. The 99th percentile for Troponin T for this test is 14 ng/L for females, and 22 ng/L for males. According to the fourth universal definition of myocardial infarction, the term acute myocardial infarction should be used when there is acute myocardial injury with clinical evidence of acute myocardial ischemia and with detection of a rise and/or fall of cardiac troponin values with at least one value above the 99th percentile and at least one of the following: - Symptoms of myocardial ischemia; - New ischemic ECG changes; - Development of pathological Q waves; - Imaging evidence of new loss of viable myocardium or new regional wall motion abnormality in a pattern consistent with an ischemic etiology; - Identification of a coronary thrombus by angiography or autopsy (not for type 2 or 3 MIs) Serial measurement of troponin and the change in troponin concentration over time (delta) is crucial for the diagnosis of acute myocardial infarction. Guidance on the interpretation of the new 5th Generation Troponin T values and the delta troponin value can be found in the [facility] Test Catalog Troponin - [facility] Test Catalog Reference: Fourth Gary Definition of Myocardial Infarction. Journal of the [employer] 2018;72:6186-6812 Blood 11/01/2023 4:09 PM EST 11/01/2023 4:16 PM EST Narrative Resulting Agency Comment Spec In Lab Yessi Lopes MD CHEMISTRY ORDER LORNA Performing Organization Address [facility] Co de Phone Number [facility] [place] [address] * Blood culture (11/01/2023 2:30 PM EST) Blood Culture No growth at 5 days. [facility] Blood STRUCTURE OF LEFT FOOT / Unknown 11/01/2023 2:30 PM EST 11/01/2023 3:03 PM EST Comment:#2 Narrative Resulting Agency Comment Spec In Lab Yessi Lopes MD MICROBIOLOGY - BLOOD ORDERABLES Performing Organization Address [facility] Co de Phone Number [facility] [place] [address] * (ABNORMAL) Differential, Automated (11/01/2023 2:20 PM EST) Pathologist [facility] Neutrophil % 77.2 % [facility] Neutrophil Absolute 7.42(H) 1.70 - 6.10 x10(3)/mc L [facility] Lymph % 14.2 % [facility] Lymphocytes Abs 1.4 0.9 - 3.2 x10(3)/ L [facility] Monocyte % 5.7 % [facility] Monocyte Abs 0.6 0.3 - 0.9 x10(3)/mc L [facility] Eos % 2.2 % [facility] Eosinophils Abs 0.2 0.0 - 0.4 x10(3)/[facility] Basophil % 0.2 % [facility] Baso Absolute 0.0 0.0 - 0.1 x10(3)/ L [facility] Immature Gran % 0.50 % [facility] Comment: Immature granulocytes(IG's)percentage and absolute count will include metamyelocytes, myelocytes, and promyelocytes. Blood smears from CBCs yielding IG's will be scanned manually for concordance. If this scan disagrees with the automated IG or if promyelocytes are noted, a manual differential will be performed. Immature Gran Absolute 0.05(H) 0.00 - 0.04 x10(3)/ L [facility] Blood 11/01/2023 2:20 PM EST 11/01/2023 2:30 PM EST Narrative Resulting Agency Comment Spec In Lab Krystal Ortiz MD HEMATOLOGY ORDERAB LES [facility] [place] [address] * (ABNORMAL) Hemogram (11/01/2023 2:20 PM EST) Pathologist [facility] White Blood Cell 9.6(H) 4.0 - 9.5 x10(3)/ L [facility] Red Blood Cell 3.22(L) 4.58 - 5.54 x10(6)/mc L [facility] Hemoglobin 9.5(L) 13.7 - 16.5 g/dL [facility] Hematocrit 28.8(L) 40.5 - 48.5 % [facility] Mean Cell Volume 89.4 82.9 - 93.1 fL [facility] Mean Cell Hemoglobin 29.5 27.5 - 32.1 pg [facility] Mean Cell Hemoglobin Concentration 33.0 32.0 - 35.7 g/dL [facility] Platelet 281 145 - 357 x10(3)/mc L [facility] RDW Standard Deviation 45.7(H) 36.0 - 45.0 fL [facility] RDW coefficient of variation 14.0(H) 11.4 - 13.8 % [facility] Mean Platelet Volume 9.9 7.6 - 12.9 fL [facility] NRBC% auto 0.0 % [facility] NRBC Absolute 0.000 0.000 - 0.000 x10(3)/ L [facility] Blood 11/01/2023 2:20 PM EST 11/01/2023 2:30 PM EST Narrative Resulting Agency Comment Spec In Lab Krystal Ortiz MD HEMATOLOGY ORDERAB LES Performing Organization Address [facility] Co de Phone Number [facility] [place] [address] * Blood culture (11/01/2023 2:20 PM EST) Blood Culture No growth at 5 days. [facility] Blood STRUCTURE OF RIGHT FOOT / Unknown 11/01/2023 2:20 PM EST 11/01/2023 3:03 PM EST Comment:#1 Narrative Resulting Agency Comment Spec In Lab Yessi Lopes MD MICROBIOLOGY - BLOOD ORDERABLES Performing Organization Address [facility] Co de Phone Number [facility] [place] [address] * (ABNORMAL) Troponin (11/01/2023 2:20 PM EST) Troponin-T, High Sensitivity 67(H) <=22 ng/L [facility] Comment: This patient's troponin T concentration was determined using the Joseline 5th Generation troponin T assay. The 99th percentile for Troponin T for this test is 14 ng/L for females, and 22 ng/L for males. According to the fourth universal definition of myocardial infarction, the term acute myocardial infarction should be used when there is acute myocardial injury with clinical evidence of acute myocardial ischemia and with detection of a rise and/or fall of cardiac troponin values with at least one value above the 99th percentile and at least one of the following: - Symptoms of myocardial ischemia; - New ischemic ECG changes; - Development of pathological Q waves; - Imaging evidence of new loss of viable myocardium or new regional wall motion abnormality in a pattern consistent with an ischemic etiology; - Identification of a coronary thrombus by angiography or autopsy (not for type 2 or 3 MIs) Serial measurement of troponin and the change in troponin concentration over time (delta) is crucial for the diagnosis of acute myocardial infarction. Guidance on the interpretation of the new 5th Generation Troponin T values and the delta troponin value can be found in the [facility] Test Catalog Troponin - [facility] Test Catalog Reference: Fourth Gary Definition of Myocardial Infarction. Journal of the [employer] 2018;72:0001-7817 Blood 11/01/2023 2:20 PM EST 11/01/2023 2:30 PM EST Narrative Resulting Agency Comment Spec In Lab Yessi Lopes MD CHEMISTRY ORDER LORNA [facility] [place] [address] * Phosphorus (11/01/2023 2:20 PM EST) Phosphorus 2.7 2.5 - 4.5 mg/dL [facility] Blood 11/01/2023 2:20 PM EST 11/01/2023 2:30 PM EST Narrative Resulting Agency Comment Spec In Lab Yessi Lopes MD CHEMISTRY ORDER LORNA [facility] [place] [address] * Magnesium (11/01/2023 2:20 PM EST) Magnesium 0.75 0.69 - 1.07 mmol/L [facility] Blood 11/01/2023 2:20 PM EST 11/01/2023 2:30 PM EST Narrative Resulting Agency Comment Spec In Lab Yessi Lopes MD CHEMISTRY ORDER LORNA [facility] [place] [address] * (ABNORMAL) Basic Metabolic Panel (non-fasting) (11/01/2023 2:20 PM EST) Glucose 107 65 - 199 mg/dL [facility] Comment:Diabetes: >=200 mg/d L plus symptoms Blood Urea Nitrogen 8(L) 10 - 20 mg/dL [facility] Creatinine 0.62(L) 0.80 - 1.50 mg/dL [facility] Sodium 138 135 - 145 mmol/L [facility] Potassium 4.1 3.5 - 5.0 mmol/L [facility] Comment: Please note: ??Patients with WBC >100,000 may have falsely elevated Potassium levels. ??For accurate Potassium quantification in these patients send serum separator tube (gold top) for subsequent determinations. ??Contact the Clinical Chemistry Laboratory if there are any questions. Chloride 103 98 - 107 mmol/L [facility] Carbon Dioxide 27 22 - 31 mmol/L [facility] Anion Gap 8 5 - 15 mmol/L [facility] Calcium 8.1(L) 8.5 - 10.5 mg/dL [facility] Est Glomerular Filtration Rate 112 >=60 mL/min/1. 73 m?? [facility] Comment: This patient's estimated GFR was [...] and symptoms in addition to eGFR. Blood 11/01/2023 2:20 PM EST 11/01/2023 2:30 PM EST Narrative Resulting Agency Comment Spec In Lab Yessi Lopes MD CHEMISTRY ORDER LORNA [facility] [place] [address] * XR Chest One View (11/01/2023 1:55 PM EST) Anatomical Region Laterality Modality Chest N/A Digital Radiogra phy Impressions 11/01/2023 2:05 PM EST LEFT lower lobe opacification due to some combination of consolidation, atelectasis and/or pleural effusion Thank you for letting us participate in the care of this patient. ??If you are a health care provider and have any questions regarding this report, please contact the number below. ??For patients who have questions please contact the health career law clerk that requested your imaging first. ? Electronically signed by: Didi Hernandes MD, [facility] ([phone]), at 11/01/2023 2:05 PM Narrative 11/01/2023 2:05 PM EST EXAMINATION: XR CHEST ONE VIEW CLINICAL HISTORY: hypotensive w/ increased Fi02 TECHNIQUE: 1 view of the chest COMPARISON: 10/31/2023 FINDINGS: The LEFT lower lobe continues to be opacified as on multiple prior studies. There is likely additional small LEFT pleural effusion. The remainder lungs are clear. No pneumothorax or pulmonary edema. Left-sided indwelling catheter has its tip in the superior vena cava. Heart size is normal Procedure Note Didi Hernandes MD - 11/01/2023 EXAMINATION: XR CHEST ONE VIEW CLINICAL HISTORY: hypotensive w/ increased Fi02 TECHNIQUE: 1 view of the chest COMPARISON: 10/31/2023 FINDINGS: The LEFT lower lobe continues to be opacified as on multiple priorstudies. There is likely additional small LEFT pleural effusion. The remainderlungs are clear. No pneumothorax or pulmonary edema. Left-sided indwelling catheterhas its tip in the superior vena cava. Heart size is normal IMPRESSION LEFT lower lobe opacification due to some combination of consolidation, atelectasis and/or pleural effusion Thank you for letting us participate in the care of this patient. If youare a health care provider and have any questions regarding this report,please contact the number below. For patients who have questions please contactthe health career law clerk that requested your imaging first. Electronically signed by: Didi Hernandes MD, [facility]([phone]), at 11/01/2023 2:05 PM Yessi Lopes MD IMG DX ORDERABL ES * EKG 12 Lead (11/01/2023 1:44 PM EST) Pathologist [facility] Ventricular rate 91 BPM MUSE SYSTEM Atrial Rate 91 BPM MUSE SYSTEM P-R Interval 144 ms MUSE SYSTEM QRS Duration 92 ms MUSE SYSTEM Q-T Interval 374 ms MUSE SYSTEM QTC Calculated (Bezet) 460 ms MUSE SYSTEM Calculated P Fertile 72 degrees MUSE SYSTEM Calculated R Fertile -30 degrees MUSE SYSTEM Calculated T Fertile 71 degrees MUSE SYSTEM INTERPRETATION Normal sinus rhythm Possible Left atrial enlargement Left axis deviation Incomplete right bundle branch block Nonspecific T wave abnormality Prolonged QT Abnormal ECG When compared with ECG of 28-OCT-2023 04:01, Incomplete right bundle branch block is now Present Confirmed by MD HASEEB, FAHAD ([id number]) on 11/02/2023 12:02:36 PM MUSE SYSTEM 11/01/2023 1:44 PM EST 11/02/2023 12:02 PM EST Yessi Lopes MD ECG ORDERABLES MUSE SYSTEM * (ABNORMAL) Differential, Automated (11/01/2023 12:28 AM EST) Pathologist [facility] Neutrophil % 71.2 % [facility] Neutrophil Absolute 5.85 1.70 - 6.10 x10(3)/mc L [facility] Lymph % 17.9 % [facility] Lymphocytes Abs 1.5 0.9 - 3.2 x10(3)/ L [facility] Monocyte % 7.1 % [facility] Monocyte Abs 0.6 0.3 - 0.9 x10(3)/[facility] Eos % 2.9 % [facility] Eosinophils Abs 0.2 0.0 - 0.4 x10(3)/ L [facility] Basophil % 0.2 % [facility] Baso Absolute 0.0 0.0 - 0.1 x10(3)/[facility] Immature Gran % 0.70 % [facility] Comment: Immature granulocytes(IG's)percentage and absolute count will include metamyelocytes, myelocytes, and promyelocytes. Blood smears from CBCs yielding IG's will be scanned manually for concordance. If this scan disagrees with the automated IG or if promyelocytes are noted, a manual differential will be performed. Immature Gran Absolute 0.06(H) 0.00 - 0.04 x10(3)/ L [facility] Blood 11/01/2023 12:2 8 AM EST 11/01/2023 12:44 AM EST Narrative Resulting Agency Comment Spec In Lab Monty OMER HEMATOLOGY ORDERABLE S Performing Organization Address City/State/[facility] Co de Phone Number [facility] [place] [address] * (ABNORMAL) Hemogram (11/01/2023 12:28 AM EST) White Blood Cell 8.2 4.0 - 9.5 x10(3)/ L [facility] Red Blood Cell 3.10(L) 4.58 - 5.54 x10(6)/mc L [facility] Hemoglobin 9.2(L) 13.7 - 16.5 g/dL [facility] Hematocrit 28.0(L) 40.5 - 48.5 % [facility] Mean Cell Volume 90.3 82.9 - 93.1 fL [facility] Mean Cell Hemoglobin 29.7 27.5 - 32.1 pg [facility] Mean Cell Hemoglobin Concentration 32.9 32.0 - 35.7 g/dL [facility] Platelet 267 145 - 357 x10(3)/mc L [facility] RDW Standard Deviation 47.4(H) 36.0 - 45.0 fL [facility] RDW coefficient of variation 14.3(H) 11.4 - 13.8 % [facility] Mean Platelet Volume 9.8 7.6 - 12.9 fL [facility] NRBC% auto 0.0 % [facility] NRBC Absolute 0.000 0.000 - 0.000 x10(3)/mc L [facility] Blood 11/01/2023 12:2 8 AM EST 11/01/2023 12:44 AM EST Narrative Resulting Agency Comment Spec In Lab Monty OMER HEMATOLOGY ORDERABLE S Performing Organization Address City/State/[facility] Co de Phone Number [facility] [place] [address] * (ABNORMAL) Basic Metabolic Panel (non-fasting) (11/01/2023 12:28 AM EST) Glucose 105 65 - 199 mg/dL [facility] Comment:Diabetes: >=200 mg/d L plus symptoms Blood Urea Nitrogen 9(L) 10 - 20 mg/dL [facility] Creatinine 0.67(L) 0.80 - 1.50 mg/dL [facility] Sodium 143 135 - 145 mmol/L [facility] Potassium 4.5 3.5 - 5.0 mmol/L [facility] Comment: Please note: ??Patients with WBC >100,000 may have falsely elevated Potassium levels. ??For accurate Potassium quantification in these patients send serum separator tube (gold top) for subsequent determinations. ??Contact the Clinical Chemistry Laboratory if there are any questions. Chloride 107 98 - 107 mmol/L [facility] Carbon Dioxide 30 22 - 31 mmol/L [facility] Anion Gap 6 5 - 15 mmol/L [facility] Calcium 8.2(L) 8.5 - 10.5 mg/dL [facility] Est Glomerular Filtration Rate 110 >=60 mL/min/1. 73 m?? [facility] Comment: This patient's estimated GFR was [...] and symptoms in addition to eGFR. Blood 11/01/2023 12:2 8 AM EST 11/01/2023 12:44 AM EST Narrative Resulting Agency Comment Spec In Lab Selma Brian MD CHEMISTRY ORDERABL ES Performing Organization Address [facility] de Phone Number [facility] [place] [address] * Phosphorus (11/01/2023 12:28 AM EST) Phosphorus 3.6 2.5 - 4.5 mg/dL [facility] Blood 11/01/2023 12:2 8 AM EST 11/01/2023 12:44 AM EST Narrative Resulting Agency Comment Spec In Lab Selma Brian MD CHEMISTRY ORDERABL ES Performing Organization Address City/[facility] Co de Phone Number [facility] [place] [address] * Magnesium (11/01/2023 12:28 AM EST) Magnesium 0.86 0.69 - 1.07 mmol/L [facility] Blood 11/01/2023 12:2 8 AM EST 11/01/2023 12:44 AM EST Narrative Resulting Agency Comment Spec In Lab Selma Brian MD CHEMISTRY ORDERABL ES Performing Organization Address City/[facility] [place] [address] * XR Chest One View (10/31/2023 8:12 PM EST) Anatomical Region Laterality Modality Chest N/A Digital Radiogra phy Impressions 10/31/2023 8:38 PM EST Left lower lobe collapse similar to previous imaging. No acute cardiopulmonary process. Thank you for letting us participate in the care of this patient. ??If you are a health care provider and have any questions regarding this report, please contact the number below. ??For patients who have questions please contact the health career law clerk that requested your imaging first. ? Narrative 10/31/2023 8:38 PM EST EXAMINATION: XR CHEST ONE VIEW CLINICAL HISTORY: desaturations TECHNIQUE: 1 view of the chest COMPARISON: CT 10/28/2023, plain radiographs 10/29/2023 FINDINGS: Left lower lobe collapse similar to previous imaging. Remainder of the left lung and the right lung are well-inflated. No new airspace process. Access medication port in the chest. No change in appropriate catheter position. Cardiac and mediastinal contours are normal. No central pulmonary vascular congestion. Partially visualized cervical fusion hardware grossly normal. No acute bone abnormality. Procedure Note Jose Joaquin MD - 10/31/2023 EXAMINATION: XR CHEST ONE VIEW CLINICAL HISTORY: desaturations TECHNIQUE: 1 view of the chest COMPARISON: CT 10/28/2023, plain radiographs 10/29/2023 FINDINGS: Left lower lobe collapse similar to previous imaging. Remainder of theleft lung and the right lung are well-inflated. No new airspace process. Access medication port in the chest. No change in appropriate catheterposition. Cardiac and mediastinal contours are normal. No central pulmonaryvascular congestion. Partially visualized cervical fusion hardware grossly normal. No acutebone abnormality. IMPRESSION Left lower lobe collapse similar to previous imaging. No acutecardiopulmonary process. Thank you for letting us participate in the care of this patient. If youare a health care provider and have any questions regarding this report,please contact the number below. For patients who have questions please contactthe health career law clerk that requested your imaging first. Yessi Lopes MD IMG DX ORDERABL ES * Phosphorus (10/31/2023 12:05 AM EST) Pathologist [facility] Phosphorus 3.3 2.5 - 4.5 mg/dL [facility] Blood 10/31/2023 12:0 5 AM EST 10/31/2023 12:23 AM EST Narrative Resulting Agency Comment Spec In Lab Selma Brian MD CHEMISTRY ORDERABL ES Performing Organization Address [facility] Co de Phone Number [facility] [place] [address] * Magnesium (10/31/2023 12:05 AM EST) Magnesium 0.77 0.69 - 1.07 mmol/L [facility] Blood 10/31/2023 12:0 5 AM EST 10/31/2023 12:23 AM EST Narrative Resulting Agency Comment Spec In Lab Selma Brian MD CHEMISTRY ORDERABL ES Performing Organization Address [facility]/ZIP Co de Phone Number [facility] [place] [address] * Blood culture (10/30/2023 1:00 PM EST) Blood Culture No growth at 5 days. [facility] Blood STRUCTURE OF RIGHT HAND / Unknown 10/30/2023 1:00 PM EST 10/30/2023 1:31 PM EST Comment:#2 Narrative Resulting Agency Comment Spec In Lab Yessi Lopes MD MICROBIOLOGY - BLOOD ORDERABLES Performing Organization Address [facility] [place] [address] * (ABNORMAL) Blood culture (10/30/2023 12:55 PM EST) Blood Culture Coagulase negative Staphylococcus species isolated : two morphologies Interpretation of the importance of skin daphne such as Coagulase Negative Staph, Viridans Strep, Corynebacteria and other Gram Positive organisms from a single Blood Culture set requires clinical correlation. (A) [facility] Gram Stain Anaerobic Growth detected in anaerobic bottle. Gram Positive Cocci in clusters seen (A) [facility] Gram Stain Aerobic Growth detected in aerobic bottle. Gram Positive Cocci in clusters seen (A) [facility] Organism Coagulase negative Staphylococcus species(A) [facility] Organism Gram Positive Cocci in clusters(A) [facility] Blood STRUCTURE OF LEFT FOOT / Unknown 10/30/2023 12:55 PM EST 10/30/2023 1:31 PM EST Comment:#1 Narrative Resulting Agency Comment Spec In Lab Yessi Lopes MD MICROBIOLOGY - BLOOD ORDERABLES Performing Organization Address [facility] Co de Phone Number [facility] [place] [address] * Valproic Acid Level, Total (10/30/2023 10:05 AM EST) Valproic Acid 19 mg/L [facility] Comment: Therapeutic Range: Anticonvulsant Therapy: ??50-100 mg/L Manic Episodes Associated with Bipolar Disorder: ??50-125 mg/L Blood 10/30/2023 10:0 5 AM EST 10/30/2023 10:21 AM EST Narrative Resulting Agency Comment Spec In Lab Eliane Mcallister BEADING MACHINE OPERATOR CHEMISTRY ORDERABL ES Performing Organization Address [facility] [place] [address] * (ABNORMAL) Differential, Automated (10/30/2023 12:07 AM EST) Neutrophil % 67.0 % [facility] Neutrophil Absolute 5.04 1.70 - 6.10 x10(3)/mc L [facility] Lymph % 18.2 % [facility] Lymphocytes Abs 1.4 0.9 - 3.2 x10(3)/ L [facility] Monocyte % 12.9 % [facility] Monocyte Abs 1.0(H) 0.3 - 0.9 x10(3)/mc L [facility] Eos % 0.8 % [facility] Eosinophils Abs 0.1 0.0 - 0.4 x10(3)/ L [facility] Basophil % 0.4 % [facility] Baso Absolute 0.0 0.0 - 0.1 x10(3)/ L [facility] Immature Gran % 0.70 % [facility] Comment: Immature granulocytes(IG's)percentage and absolute count will include metamyelocytes, myelocytes, and promyelocytes. Blood smears from CBCs yielding IG's will be scanned manually for concordance. If this scan disagrees with the automated IG or if promyelocytes are noted, a manual differential will be performed. Immature Gran Absolute 0.05(H) 0.00 - 0.04 x10(3)/ L [facility] Blood 10/30/2023 12:0 7 AM EST 10/30/2023 12:15 AM EST Narrative Resulting Agency Comment Spec In Lab Jeronimo Robins MD HEMATOLOGY ORDERABLE S [facility] [place] [address] * (ABNORMAL) Hemogram (10/30/2023 12:07 AM EST) White Blood Cell 7.5 4.0 - 9.5 x10(3)/mc L [facility] Red Blood Cell 3.17(L) 4.58 - 5.54 x10(6)/mc L [facility] Hemoglobin 9.4(L) 13.7 - 16.5 g/dL [facility] Hematocrit 28.1(L) 40.5 - 48.5 % [facility] Mean Cell Volume 88.6 82.9 - 93.1 fL [facility] Mean Cell Hemoglobin 29.7 27.5 - 32.1 pg [facility] Mean Cell Hemoglobin Concentration 33.5 32.0 - 35.7 g/dL [facility] Platelet 188 145 - 357 x10(3)/mc L [facility] RDW Standard Deviation 46.1(H) 36.0 - 45.0 fL [facility] RDW coefficient of variation 14.2(H) 11.4 - 13.8 % [facility] Mean Platelet Volume 10.1 7.6 - 12.9 fL [facility] NRBC% auto 0.0 % [facility] NRBC Absolute 0.000 0.000 - 0.000 x10(3)/mc L [facility] Blood 10/30/2023 12:0 7 AM EST 10/30/2023 12:15 AM EST Narrative Resulting Agency Comment Spec In Lab Jeronimo Robins MD HEMATOLOGY ORDERABLE S Performing Organization Address City/State/[facility] Co de Phone Number [facility] [place] [address] * (ABNORMAL) Basic Metabolic Panel (non-fasting) (10/30/2023 12:07 AM EST) Glucose 117 65 - 199 mg/dL [facility] Comment:Diabetes: >=200 mg/d L plus symptoms Blood Urea Nitrogen 8(L) 10 - 20 mg/dL [facility] Creatinine 0.74(L) 0.80 - 1.50 mg/dL [facility] Sodium 141 135 - 145 mmol/L [facility] Potassium 4.0 3.5 - 5.0 mmol/L [facility] Comment: Please note: ??Patients with WBC >100,000 may have falsely elevated Potassium levels. ??For accurate Potassium quantification in these patients send serum separator tube (gold top) for subsequent determinations. ??Contact the Clinical Chemistry Laboratory if there are any questions. Chloride 104 98 - 107 mmol/L [facility] Carbon Dioxide 28 22 - 31 mmol/L [facility] Anion Gap 9 5 - 15 mmol/L [facility] Calcium 7.9(L) 8.5 - 10.5 mg/dL [facility] Est Glomerular Filtration Rate 106 >=60 mL/min/1. 73 m?? [facility] Comment: This patient's estimated GFR was [...] and symptoms in addition to eGFR. Blood 10/30/2023 12:0 7 AM EST 10/30/2023 12:16 AM EST Narrative Resulting Agency Comment Spec In Lab Selma Brian MD CHEMISTRY ORDERABL ES Performing Organization Address [facility] Co de Phone Number [facility] [place] [address] * (ABNORMAL) Phosphorus (10/30/2023 12:07 AM EST) Phosphorus 1.9(L) 2.5 - 4.5 mg/dL [facility] Blood 10/30/2023 12:0 7 AM EST 10/30/2023 12:16 AM EST Narrative Resulting Agency Comment Spec In Lab Selma Brian MD CHEMISTRY ORDERABL ES Performing Organization Address City/[facility]/ZIP Co de Phone Number [facility] [place] [address] * Magnesium (10/30/2023 12:07 AM EST) Magnesium 0.86 0.69 - 1.07 mmol/L [facility] Blood 10/30/2023 12:0 7 AM EST 10/30/2023 12:16 AM EST Narrative Resulting Agency Comment Spec In Lab Selma Brian MD CHEMISTRY ORDERABL ES Performing Organization Address [facility] [place] [address] * MRSA PCR Screen ([facility]/CGP/APD/NLH) (10/29/2023 6:48 AM EST) MRSA PCR Negative Negative [facility] MRSA (Interp) Methicillin-resist ant Staphylococcus aureus (MRSA) is NOT DETECTED The MRSA target DNA sequences (mec and SCC) were not detected within the acceptable ranges using the Xpert MRSA NxG on the GeneXpert Dx System ([employer]). This suggests the absence of MRSA in the patient specimen submitted for testing. This test is cleared by the U.S. Food and Drug Administration for clinical use and its performance characteristics have been verified by the [facility] at [facility]. This result does not rule out the presence of any other organisms. Rare false negative results may occur if MRSA is present at low concentrations with much higher concentrations of other organisms including MRSE or S. aureus with an empty SCC cassette. [facility] Comment: [VERIFIED DATE]10.29.23 Verified By:Katherine Early (Electronic Signature) Nasopharyngeal Swab 10/29/20 6:48 AM EST 10/29/2023 8:32 AM EST Comment:Specimen Type->Nasop haryngeal Swab Narrative Resulting Agency Comment Spec In Lab Selma Brian MD MOLECULAR ORDERABL ES Performing Organization Address [facility] [place] [address] * XR Chest One View (10/29/2023 6:20 AM EST) Anatomical Region Laterality Modality Chest N/A Digital Radiogra phy Impressions 10/29/2023 7:15 AM EST Similar appearing left basilar opacity. Preliminary report signed by: Michael Freeman MD at 10/29/2023 6:59 AM I have personally reviewed the image(s) and the resident's interpretation and agree with the findings, Caleb Branch MD at 10/29/2023 7:15 AM Thank you for letting us participate in the care of this patient. ??If you are a health care provider and have any questions regarding this report, please contact the number below. ??For patients who have questions please contact the health career law clerk that requested your imaging first. ? Electronically signed by: Caleb Branch MD, [facility] ([phone]), at 10/29/2023 7:15 AM Narrative 10/29/2023 7:15 AM EST EXAMINATION: XR CHEST ONE VIEW CLINICAL HISTORY: surveil LLL mucus plus TECHNIQUE: 1 view of the chest . 2 images COMPARISON: Chest radiograph and CT 10/28/2023. FINDINGS: Examination is limited by the right upper extremity obscuring part of the [id number]. Left chest wall subcutaneous port with tip at the superior cavoatrial junction. Similar-appearing left basilar opacity. No pneumothorax. No pleural effusion. Unchanged cardiomediastinal contours. Partially visualized cervical fusion hardware. Procedure Note Krishan rBanch MD - 10/29/2023 EXAMINATION: XR CHEST ONE VIEW CLINICAL HISTORY: surveil LLL mucus plus TECHNIQUE: 1 view of the chest . 2 images COMPARISON: Chest radiograph and CT 10/28/2023. FINDINGS: Examination is limited by the right upper extremity obscuring part ofthe [id number]. Left chest wall subcutaneous port with tip at the superior cavoatrialjunction. Similar-appearing left basilar opacity. No pneumothorax. No pleuraleffusion. Unchanged cardiomediastinal contours. Partially visualized cervicalfusion hardware. IMPRESSION Similar appearing left basilar opacity. Preliminary report signed by: Michael Freeman MD at 10/29/2023 6:59 AM I have personally reviewed the image(s) and the resident's interpretationand agree with the findings, Caleb Branch MD at 10/29/2023 7:15 AM Thank you for letting us participate in the care of this patient. If youare a health care provider and have any questions regarding this report,please contact the number below. For patients who have questions please contactthe health career law clerk that requested your imaging first. Selma Brian MD IMG DX ORDERABLES * (ABNORMAL) Phosphorus (10/29/2023 12:28 AM EST) [facility] Phosphorus 2.3(L) 2.5 - 4.5 mg/dL [facility] Blood Venous Draw / Unknown 10/29/2023 12:28 AM EST 10/29/2023 12:35 AM EST Narrative Resulting Agency Comment Spec In Lab Marley Madrigal MD CHEMISTRY ORDERA BLES Performing Organization Address City/[facility]/ZIP Co de Phone Number [facility] [place] [address] * (ABNORMAL) Magnesium (10/29/2023 12:28 AM EST) [facility] Magnesium 0.60(L) 0.69 - 1.07 mmol/L [facility] Blood Venous Draw / Unknown 10/29/2023 12:28 AM EST 10/29/2023 12:35 AM EST Narrative Resulting Agency Comment Spec In Lab Marley Madrigal MD CHEMISTRY ORDERA BLES Performing Organization Address City/[facility]/[place] [address] * (ABNORMAL) Differential, Automated (10/29/2023 12:28 AM EST) Neutrophil % 73.2 % [facility] Neutrophil Absolute 5.40 1.70 - 6.10 x10(3)/mc L [facility] Lymph % 13.3 % [facility] Lymphocytes Abs 1.0 0.9 - 3.2 x10(3)/ L [facility] Monocyte % 11.8 % [facility] Monocyte Abs 0.9 0.3 - 0.9 x10(3)/[facility] Eos % 0.5 % [facility] Eosinophils Abs 0.0 0.0 - 0.4 x10(3)/[facility] Basophil % 0.3 % [facility] Baso Absolute 0.0 0.0 - 0.1 x10(3)/[facility] Immature Gran % 0.90 % [facility] Comment: Immature granulocytes(IG's)percentage and absolute count will include metamyelocytes, myelocytes, and promyelocytes. Blood smears from CBCs yielding IG's will be scanned manually for concordance. If this scan disagrees with the automated IG or if promyelocytes are noted, a manual differential will be performed. Immature Gran Absolute 0.07(H) 0.00 - 0.04 x10(3)/ L [facility] Blood 10/29/2023 12:2 8 AM EST 10/29/2023 12:35 AM EST Narrative Resulting Agency Comment Spec In Lab Jeronimo Robins MD HEMATOLOGY ORDERABLE S [facility] [place] [address] * (ABNORMAL) Hemogram (10/29/2023 12:28 AM EST) White Blood Cell 7.4 4.0 - 9.5 x10(3)/ L [facility] Red Blood Cell 3.18(L) 4.58 - 5.54 x10(6)/[facility] Hemoglobin 9.4(L) 13.7 - 16.5 g/dL [facility] Hematocrit 28.2(L) 40.5 - 48.5 % [facility] Mean Cell Volume 88.7 82.9 - 93.1 fL [facility] Mean Cell Hemoglobin 29.6 27.5 - 32.1 pg [facility] Mean Cell Hemoglobin Concentration 33.3 32.0 - 35.7 g/dL [facility] Platelet 150 145 - 357 x10(3)/mc L [facility] RDW Standard Deviation 45.4(H) 36.0 - 45.0 fL [facility] RDW coefficient of variation 13.9(H) 11.4 - 13.8 % [facility] Mean Platelet Volume 10.3 7.6 - 12.9 fL [facility] NRBC% auto 0.0 % [facility] NRBC Absolute 0.000 0.000 - 0.000 x10(3)/mc L [facility] Blood 10/29/2023 12:2 8 AM EST 10/29/2023 12:35 AM EST Narrative Resulting Agency Comment Spec In Lab Jeronimo Robins MD HEMATOLOGY ORDERABLE S Performing Organization Address City/State/[facility] Co de Phone Number [facility] [place] [address] * (ABNORMAL) Basic Metabolic Panel (non-fasting) (10/29/2023 12:28 AM EST) Glucose 130 65 - 199 mg/dL [facility] Comment:Diabetes: >=200 mg/d L plus symptoms Blood Urea Nitrogen 10 10 - 20 mg/dL [facility] Creatinine 0.76(L) 0.80 - 1.50 mg/dL [facility] Sodium 141 135 - 145 mmol/L [facility] Potassium 3.8 3.5 - 5.0 mmol/L [facility] Comment: Please note: ??Patients with WBC >100,000 may have falsely elevated Potassium levels. ??For accurate Potassium quantification in these patients send serum separator tube (gold top) for subsequent determinations. ??Contact the Clinical Chemistry Laboratory if there are any questions. Chloride 104 98 - 107 mmol/L [facility] Carbon Dioxide 27 22 - 31 mmol/L [facility] Anion Gap 10 5 - 15 mmol/L [facility] Calcium 8.2(L) 8.5 - 10.5 mg/dL [facility] Est Glomerular Filtration Rate 105 >=60 mL/min/1. 73 m?? [facility] Comment: This patient's estimated GFR [...] and symptoms in addition to eGFR. Blood 10/29/2023 12:2 8 AM EST 10/29/2023 12:35 AM EST Narrative Resulting Agency Comment Spec In Lab Selma Brian MD CHEMISTRY ORDERABL ES [facility] [place] [address] * ECHO COMPLETE W CONTRAST (10/28/2023 3:48 PM EST) EF 66 [facility] Anatomical Region Laterality Modality Cardiac Other 10/28/2023 2:09 PM EST Narrative 10/28/2023 4:37 PM EST [address] [place] [address] ? Echocardiogram Report Name: NIGHAT BARRIOS ? Study Date: 10/28/2023 02:09 PM ? Patient Location: [facility] IC10 A : 1965 ? Height: 188 cm ? Account: [id number] Age: 58 yrs ? Weight: 82 kg Gender: Male ?BSA: 2.1 m2 Ordering Physician: SELMA BRIAN Referring Physician: SAL BARR Performed By: SHYLA Sherman Reason For Study: Oxygen desaturation Interpreting Fellow: Antonette Hernandez. Exam Location: [facility]. Interpretation Summary Mild left ventricular chamber dilatation. Mildly increased thickness of the basal septum without LVOT obstruction. The LVEF is 66% by Matthew's without segmental wall motion abnormalities. Normal right ventricular size and systolic function. No hemodynamically significant valve disease. No prior study for comparison. Procedure Complete-[id number]. Image enhancement Definity was used for left ventricular opacification. Suboptimal quality. There is normal sinus rhythm. Left Ventricle Left ventricle is mildly dilated. Mildly increased thickness of the basal septum with no obstruction to LV outflow. There is no ventricular septal defect. Left ventricular systolic function is normal. The left ventricular ejection fraction is 66% by Matthew's biplane. There are no segmental wall motion abnormalities. Right Ventricle The right ventricle is of normal size. Right ventricular systolic function is normal. Left Atrium The left atrium is probably normal. The interatrial septum is not well visualized. Right Atrium The right atrium is normal. Aortic Valve The aortic valve is tricuspid. The aortic valve is mildly thickened. There is no aortic stenosis. There is no aortic regurgitation. Mitral Valve The mitral valve is structurally normal. There is no mitral stenosis. There is no mitral regurgitation. Tricuspid Valve The tricuspid valve is structurally normal. There is no tricuspid stenosis. There is trace tricuspid regurgitation. Pulmonic Valve The pulmonic valve appears to be structurally normal. There is no valvular pulmonic stenosis. There is no pulmonic valve regurgitation. Great Arteries The diameter at the level of the sinuses of Valsalva is 3.7 cm. The maximum diameter of the proximal ascending aorta is 3.6 cm. No abnormalities of the pulmonary artery are identified. Venous Inferior vena cava is normal in size. Inferior vena cava collapse greater than 50% with respiration. Pericardium/Pleural There is no pericardial effusion. Hemodynamics Pulmonary artery hypertension could not be assessed due to inadequate tricuspid regurgitation jet. The estimated right atrial pressure is 3mmHg. Left ventricular diastolic function is normal. Left ventricular filling pressure is normal. Ejection Fraction ?2D Measurements ? Volumes EF(MOD-bp): 66.4 % ?IVSd: 1.2 cm ? EDV(MOD- bp) Indexed: ?LVIDd: 4.5 cm ?LVPWd: 0.87 cm ? 80.5 ml/m2 ?LV mass(C)d: 159.7 grams ? ESV(MOD- bp) Indexed: ? 27.1 ml/m2 ?LV mass(C)dI: 76.7 grams/m2 ?SV(LVOT): 58.1 ml ?Ao root diam: 3.7 cm ?Ao root diam index: 1.8 ?SI(LVOT): 27.9 ml/m2 ?asc Aorta Diam: 3.6 cm ?LVOT diam: 1.9 cm ?TAPSE_phl: 2.1 cm Doppler LV V1 VTI: 21.4 cm MV E max hernan: 80.4 cm/sec MV A max hernan: 67.5 cm/sec MV E/A: 1.2 MV dec time: 0.10 sec Lat Peak E' Hernan: 20.3 cm/sec E/ e' (lat): 4.0 Med Peak E' Hernan: 17.7 cm/sec E/e' (med): 4.5 E/e' Average: 4.2 I ?WMSI = 1.00 ? % Normal = 100 ?Segments ??Size X - Cannot ?2 - ?4 - ?1-2 ? small Interpret ?1 - Normal ?? Hypokinetic 3 - Akinetic Dyskinetic ?? 3-5 ? moderate 5 - ? 6-14 ?large Aneurysmal ?15-16 ?? diffuse Procedure Note Lobo Jones MD - 10/28/2023 [address] [place] [address] Echocardiogram Report Name: NIGHAT BARRIOS Study Date: 302:09 PM Patient Location: [place] [address] A : 1965 Height: 188 cm Account: [id number] Age: 58 yrs Weight: 82 kg Gender: Male BSA: 2.1 m2 Ordering Physician: SELMA BRIAN Referring Physician: SAL BARR Performed By: SHYLA Sherman Reason For Study: Oxygen desaturation Interpreting Fellow: Antonette Hernandez. Exam Location: [facility]. Interpretation Summary Mild left ventricular chamber dilatation. Mildly increased thickness ofthe basal septum without LVOT obstruction. The LVEF is 66% by Matthew's withoutsegmental wall motion abnormalities. Normal right ventricular size and systolic function. No hemodynamically significant valve disease. No prior study for comparison. Procedure Complete-[id number]. Image enhancement Definity was used for left ventricular opacification. Suboptimal quality. There is normal sinus rhythm. Left Ventricle Left ventricle is mildly dilated. Mildly increased thickness of the basalseptum with no obstruction to LV outflow. There is no ventricular septal defect.Left ventricular systolic function is normal. The left ventricular ejectionfraction is 66% by Matthew's biplane. There are no segmental wall motionabnormalities. Right Ventricle The right ventricle is of normal size. Right ventricular systolic functionis normal. Left Atrium The left atrium is probably normal. The interatrial septum is not wellvisualized. Right Atrium The right atrium is normal. Aortic Valve The aortic valve is tricuspid. The aortic valve is mildly thickened. Thereis no aortic stenosis. There is no aortic regurgitation. Mitral Valve The mitral valve is structurally normal. There is no mitral stenosis.There is no mitral regurgitation. Tricuspid Valve The tricuspid valve is structurally normal. There is no tricuspidstenosis. There is trace tricuspid regurgitation. Pulmonic Valve The pulmonic valve appears to be structurally normal. There is novalvular pulmonic stenosis. There is no pulmonic valve regurgitation. Great Arteries The diameter at the level of the sinuses of Valsalva is 3.7 cm. Themaximum diameter of the proximal ascending aorta is 3.6 cm. No abnormalities ofthe pulmonary artery are identified. Venous Inferior vena cava is normal in size. Inferior vena cava collapse greaterthan 50% with respiration. Pericardium/Pleural There is no pericardial effusion. Hemodynamics Pulmonary artery hypertension could not be assessed due to inadequatetricuspid regurgitation jet. The estimated right atrial pressure is 3mmHg. Leftventricular diastolic function is normal. Left ventricular filling pressure isnormal. Ejection Fraction 2D Measurements Volumes EF(MOD-bp): 66.4 % IVSd: 1.2 cm EDV(MOD-bp)Indexed: LVIDd: 4.5 cm LVPWd: 0.87 cm 80.5 ml/m2 LV mass(C)d: 159.7 grams ESV(MOD-bp)Indexed: 27.1 ml/m2 LV mass(C)dI: 76.7 grams/m2 SV(LVOT): 58.1ml Ao root diam: 3.7 cm Ao root diam index: 1.8 SI(LVOT): 27.9ml/m2 asc Aorta Diam: 3.6 cm LVOT diam: 1.9 cm TAPSE_phl: 2.1 cm Doppler LV V1 VTI: 21.4 cm MV E max hernan: 80.4 cm/sec MV A max hernan: 67.5 cm/sec MV E/A: 1.2 MV dec time: 0.10 sec Lat Peak E' Hernan: 20.3 cm/sec E/ e' (lat): 4.0 Med Peak E' Hernan: 17.7 cm/sec E/e' (med): 4.5 E/e' Average: 4.2 I WMSI = 1.00 % Normal = 100 SegmentsSize X - Cannot 2 - 4 - 1-2small Interpret 1 - Normal Hypokinetic 3 - Akinetic Dyskinetic 3-5moderate 5 - 6-14large Aneurysmal 15-16diffuse Selma Brian MD ECHO ORDERABLES * CT Abdomen & Pelvis w Contrast (10/28/2023 12:53 PM EST) Anatomical Region Laterality Modality Abdomen, Pelvis Computed Tomogra phy Impressions 10/28/2023 2:59 PM EST 1. Interval placement of a right-sided double-J stent within the ureter, expected appearance. 2. Right-sided nephrolithiasis with no hydronephrosis. 3. 2 small wedge-shaped regions of hypoattenuation within the right renal parenchyma are in retrospect visible on the previous CT, though highly obscured by motion artifact on that exam. This may represent focal nephronia with pyelonephritis. There is no intrarenal or pararenal abscess. 4. Bladder is decompressed which limits evaluation. However, there is probably a degree of circumferential wall thickening, most pronounced at the left lateral margin. Consider cystitis. Thank you for letting us participate in the care of this patient. ??If you are a health care provider and have any questions regarding this report, please contact the number below. ??For patients who have questions please contact the health career law clerk that requested your imaging first. ? Electronically signed by: Jose Joaquin MD, [facility] ([phone]), at 10/28/2023 2:59 PM Narrative 10/28/2023 2:59 PM EST EXAMINATION: CT ABDOMEN AND PELVIS W CONTRAST CLINICAL HISTORY: Sepsis - Include more detail below; urosepsis with recurrent fever on antibioitcs, please eval for intra abdominal pathology or renal abscess TECHNIQUE: Helical CT of the abdomen and pelvis following the intravenous administration of contrast. 94 mL Omnipaque 350. Oral contrast was not administered. COMPARISON: CT PE, 10/28/2023. Abdominal CT 10/24/2023 FINDINGS: Lower chest: Left lower lobe collapse as seen on the previous CT PE, mucus plugging. Trace bilateral pleural effusions. Liver: Mild periportal edema. No focal hepatic lesion. Liver is normal in size. Bile ducts: Nondilated. Gallbladder: No calcified gallstones. Normal caliber wall. No pericholecystic fluid. Pancreas: Normal attenuation without ductal dilatation. Spleen: Normal. Adrenals: Normal. Kidneys: Right kidney: Interval placement of right-sided double-J stent with stent ends coiled appropriately at the bladder and right renal pelvis. Nonobstructing stones again seen in the lower pole of the right kidney. Right-sided UVJ stone again seen, adjacent to the passing catheter. Right collecting system caliber is normal, no hydronephrosis. Wedge shaped area of hypoattenuation in the lower pole similar to the previous examination, visible in retrospect though significantly obscured by motion artifact on the previous exam. Subcentimeter additional wedge-shaped region of low attenuation is present in the interpolar region laterally. Left kidney: No collecting system dilation. No stone. Normal corticomedullary differentiation, symmetric nephrograms with the comparison right. Urinary Bladder: Indwelling Beck catheter and right-sided double-J stent and. Small amount of free air. The bladder is decompressed, some probable wall thickening is present along the left lateral margin. No bladder or urethral stone. Vasculature: Normal caliber of the aorta, IVC and portal vein Lymph Nodes: No mesenteric, retroperitoneal or pelvic lymphadenopathy Bowel: There is a moderate to large amount of densely inspissated stool within the colon just proximal to the left lower quadrant colostomy. Decompressed rectosigmoid. Normal caliber of the small bowel. Remaining: Normal. Normal caliber of the small bowel. Peritoneum and retroperitoneum: No free fluid or loculated fluid collection. No pneumoperitoneum. No mesenteric inflammation. Abdominal wall: Bilateral flank edema. No focal fluid collection. Osseous structures: Degenerative changes of the lumbosacral spine. No acute or aggressive bone lesion. Procedure Note Jose Joaquin MD - 10/28/2023 EXAMINATION: CT ABDOMEN AND PELVIS W CONTRAST CLINICAL HISTORY: Sepsis - Include more detail below; urosepsis withrecurrent fever on antibioitcs, please eval for intra abdominal pathology or renalabscess TECHNIQUE: Helical CT of the abdomen and pelvis following theintravenous administration of contrast. 94 mL Omnipaque 350. Oral contrast was not administered. COMPARISON: CT PE, 10/28/2023. Abdominal CT 10/24/2023 FINDINGS: Lower chest: Left lower lobe collapse as seen on the previous CT PE,mucus plugging. Trace bilateral pleural effusions. Liver: Mild periportal edema. No focal hepatic lesion. Liver is normal insize. Bile ducts: Nondilated. Gallbladder: No calcified gallstones. Normal caliber wall. Nopericholecystic fluid. Pancreas: Normal attenuation without ductal dilatation. Spleen: Normal. Adrenals: Normal. Kidneys: Right kidney: Interval placement of right-sided double-J stentwith stent ends coiled appropriately at the bladder and right renal pelvis. Nonobstructing stones again seen in the lower pole of the right kidney. Right-sided UVJ stone again seen, adjacent to the passing catheter.Right collecting system caliber is normal, no hydronephrosis. Wedge shaped areaof hypoattenuation in the lower pole similar to the previous examination,visible in retrospect though significantly obscured by motion artifact on theprevious exam. Subcentimeter additional wedge-shaped region of low attenuation ispresent in the interpolar region laterally. Left kidney: No collecting system dilation. No stone. Normalcorticomedullary differentiation, symmetric nephrograms with the comparison right. Urinary Bladder: Indwelling Beck catheter and right-sided double-J stentand. Small amount of free air. The bladder is decompressed, some probablewall thickening is present along the left lateral margin. No bladder orurethral stone. Vasculature: Normal caliber of the aorta, IVC and portal vein Lymph Nodes: No mesenteric, retroperitoneal or pelvic lymphadenopathy Bowel: There is a moderate to large amount of densely inspissated stoolwithin the colon just proximal to the left lower quadrant colostomy.Decompressed rectosigmoid. Normal caliber of the small bowel. Remaining: Normal.Normal caliber of the small bowel. Peritoneum and retroperitoneum: No free fluid or loculated fluidcollection. No pneumoperitoneum. No mesenteric inflammation. Abdominal wall: Bilateral flank edema. No focal fluid collection. Osseous structures: Degenerative changes of the lumbosacral spine. Noacute or aggressive bone lesion. IMPRESSION 1. Interval placement of a right-sided double-J stent within the ureter, expected appearance. 2. Right-sided nephrolithiasis with no hydronephrosis. 3. 2 small wedge-shaped regions of hypoattenuation within the rightrenal parenchyma are in retrospect visible on the previous CT, though highlyobscured by motion artifact on that exam. This may represent focal nephronia with pyelonephritis. There is no intrarenal or pararenal abscess. 4. Bladder is decompressed which limits evaluation. However, there isprobably a degree of circumferential wall thickening, most pronounced at the leftlateral margin. Consider cystitis. Thank you for letting us participate in the care of this patient. If youare a health care provider and have any questions regarding this report,please contact the number below. For patients who have questions please contactthe health career law clerk that requested your imaging first. Electronically signed by: Jose Joaquin MD, [facility]([phone]), at 10/28/2023 2:59 PM Yessi Lopes MD IMG CT ORDERABL ES * CT Angiogram Chest for Pulmonary Embolus w Contrast (10/28/2023 12:53 PM EST) Anatomical Region Laterality Modality Chest Computed Tomogra phy Impressions 10/28/2023 1:21 PM EST 1. ??No pulmonary thromboembolism 2. ??Occlusive mucous plugging in the left lower lobe bronchus with near total postobstructive left lower lobe collapse Thank you for letting us participate in the care of this patient. ??If you are a health care provider and have any questions regarding this report, please contact the number below. ??For patients who have questions please contact the health career law clerk that requested your imaging first. ? Electronically signed by: Rajinder Eric MD, [facility] ??([phone]), at 10/28/2023 1:21 PM Narrative 10/28/2023 1:21 PM EST EXAMINATION: CTA CHEST PULMONARY EMBOLISM W CONTRAST CLINICAL HISTORY: Pulmonary embolism (PE) suspected, unknown D-dimer Sudden new oxygen requirement, quadriplegic TECHNIQUE: A volumetric acquisition of the chest was obtained after the intravenous administration of contrast, Administered 94.0 ml of OMNIPAQUE 350.00 mg/ml. Thin-section reconstructions as well as coronal and sagittal MIP reformatted images were generated to aid in evaluation. COMPARISON: 10/24/2023 FINDINGS: Support devices: Left chest port catheter terminates in superior vena cava CTA: The contrast bolus is satisfactory although the study is degraded by mild-moderate respiratory motion artifact. There is no filling defect in pulmonary artery or its branches. Lungs/airways/pleura: Layering secretions in the trachea extending into the mainstem bronchi and lower lobe bronchi and segmental/subsegmental bronchi. There is occlusive mucous plugging in the left lower lobe bronchus and segmental bronchi with near total collapse of the left lower lobe. Trace right greater than left pleural effusions Mediastinum/lymph nodes: No thoracic lymphadenopathy. Cardiovascular: The heart is normal in size. There are coronary artery calcifications. There is no pericardial effusion. The aorta is normal in caliber. Upper abdomen: Please see separately dictated report for CT scans of the abdomen and pelvis performed on the same day Bones and soft tissues: Posterior fusion hardware in the upper thoracic spine. The soft tissues are unremarkable. Procedure Note Rajinder Eric MD - 10/28/2023 EXAMINATION: CTA CHEST PULMONARY EMBOLISM W CONTRAST CLINICAL HISTORY: Pulmonary embolism (PE) suspected, unknown D-dimer Sudden new oxygen requirement, quadriplegic TECHNIQUE: A volumetric acquisition of the chest was obtained after the intravenous administration of contrast, Administered 94.0 ml of VABLQKUEQ073.00 mg/ml. Thin-section reconstructions as well as coronal and sagittal MIP reformatted images were generated to aid in evaluation. COMPARISON: 10/24/2023 FINDINGS: Support devices: Left chest port catheter terminates in superior venacava CTA: The contrast bolus is satisfactory although the study is degradedby mild-moderate respiratory motion artifact. There is no filling defect in pulmonary artery or its branches. Lungs/airways/pleura: Layering secretions in the trachea extending intothe mainstem bronchi and lower lobe bronchi and segmental/subsegmentalbronchi. There is occlusive mucous plugging in the left lower lobe bronchus andsegmental bronchi with near total collapse of the left lower lobe. Trace rightgreater than left pleural effusions Mediastinum/lymph nodes: No thoracic lymphadenopathy. Cardiovascular: The heart is normal in size. There are coronary artery calcifications. There is no pericardial effusion. The aorta is normal in caliber. Upper abdomen: Please see separately dictated report for CT scans of theabdomen and pelvis performed on the same day Bones and soft tissues: Posterior fusion hardware in the upper thoracicspine. The soft tissues are unremarkable. IMPRESSION 1. No pulmonary thromboembolism 2. Occlusive mucous plugging in the left lower lobe bronchus with neartotal postobstructive left lower lobe collapse Thank you for letting us participate in the care of this patient. If youare a health care provider and have any questions regarding this report,please contact the number below. For patients who have questions please contactthe health career law clerk that requested your imaging first. Electronically signed by: Rajinder Eric MD, [facility]([phone]), at 10/28/2023 1:21 PM Selma Brian MD IMG CT ORDERABLES * Blood culture (10/28/2023 9:22 AM EST) Blood Culture No growth at 5 days. [facility] Blood STRUCTURE OF LEFT FOOT / Unknown 10/28/2023 9:22 AM EST 10/28/2023 9:54 AM EST Comment:#2 Narrative Resulting Agency Comment Spec In Lab Selma Brian MD MICROBIOLOGY - BLO OD ORDERABLES Performing Organization Address City/[facility]/ZIP Co de Phone Number [facility] [place] [address] * Blood culture (10/28/2023 9:10 AM EST) Blood Culture No growth at 5 days. [facility] Blood STRUCTURE OF RIGHT HAND / Unknown 10/28/2023 9:10 AM EST 10/28/2023 9:55 AM EST Comment:#1 Narrative Resulting Agency Comment Spec In Lab Selma Brian MD MICROBIOLOGY - BLO OD ORDERABLES Performing Organization Address [facility] Co de Phone Number [facility] [place] [address] * (ABNORMAL) BLOOD GAS 2 ARTERIAL (10/28/2023 6:04 AM EST) pH, Arterial 7.40 7.35 - 7.45 [facility] PCO2, Arterial 41 35 - 45 mmHg [facility] PO2, Arterial 64(L) 85 - 104 mmHg [facility] Bicarbonate, Arterial 24.9 20.0 - 26.0 mmol/L [facility] Base Excess, Arterial 0.1 -3.0 - 3.0 mmol/L [facility] Hgb Blood Gas 12.9(L) 13.7 - 16.5 g/dL [facility] Oxyhemoglobin, Arterial 92.1(L) 94.0 - 97.0 % [facility] Carboxyhemoglob in, Arterial 0.3 % [facility] Comment: Nonsmokers: 0.5-1.5% COHB Smokers: Variable, but usually less than 10% Toxic: 20-30% COHB Lethal: Greater than 60% COHB Methemoglobin, Arterial 0.3 <=1.5 % [facility] Na Whole Blood 139 135 - 145 mmol/L [facility] K Whole Blood 3.5 3.5 - 5.0 mmol/L [facility] Comment: Please note: Patients with WBC >100,000 may have falsely elevated Potassium levels. Contact the Clinical Chemistry Laboratory if there are any questions. ICa Whole Blood 1.12(L) 1.15 - 1.33 mmol/L [facility] Comment: Note: ??Total bilirubin higher than 20 mg/dL may lead to falsely low ionized calcium. CL Whole Blood 104 98 - 107 mmol/L [facility] Gluc Whole Bld 129 65 - 199 mg/dL [facility] Comment:Diabetes: >=200 mg/d L plus symptoms. Lactate WB 1.0 0.5 - 2.2 mmol/L [facility] FIO2 Art 60 % [facility] PF Ratio Art 107 [facility] Blood 10/28/2023 6:04 AM EST 10/28/2023 6:04 AM EST Selma Brian MD POINT OF CARE TEST ORDERABLES Performing Organization Address City/State/[facility] Co de Phone Number [facility] [place] [address] * (ABNORMAL) BLOOD GAS 2 VENOUS (10/28/2023 4:36 AM EST) pH, Venous 7.37 7.32 - 7.42 [facility] PCO2, Venous 44 41 - 51 mmHg [facility] PO2, Venous 34 25 - 40 mmHg [facility] Bicarbonate, Venous 24.8 mmol/L [facility] Base Excess, Venous -0.5 mmol/L [facility] Hgb Blood Gas 11.0(L) 13.7 - 16.5 g/dL [facility] Oxyhemoglobin, Venous 66.4 % [facility] Carboxyhemoglob in, Venous 0.3 % [facility] Comment: Nonsmokers: 0.5-1.5% COHB Smokers: Variable, but usually less than 10% Toxic: 20-30% COHB Lethal: Greater than 60% COHB Methemoglobin, Venous 0.4 <=1.5 % [facility] Na Whole Blood 139 135 - 145 mmol/L [facility] K Whole Blood 3.4(L) 3.5 - 5.0 mmol/L [facility] Comment: Please note: Patients with WBC >100,000 may have falsely elevated Potassium levels. Contact the Clinical Chemistry Laboratory if there are any questions. ICa Whole Blood 1.13(L) 1.15 - 1.33 mmol/L [facility] Comment: Note: ??Total bilirubin higher than 20 mg/dL may lead to falsely low ionized calcium. CL Whole Blood 104 98 - 107 mmol/L [facility] Gluc Whole Bld 120 65 - 199 mg/dL [facility] Comment:Diabetes: >=200 mg/d L plus symptoms Lactate WB 0.8 0.5 - 2.2 mmol/L [facility] Fraction of Inspired Oxygen, Venous 60 % [facility] Blood Gas Source Venous [facility] Blood 10/28/2023 4:36 AM EST 10/28/2023 4:36 AM EST Selma Brian MD POINT OF CARE TEST ORDERABLES Performing Organization Address City/[facility]/ZIP Co de Phone Number [facility] [place] [address] * EKG 12 Lead (10/28/2023 4:01 AM EST) Ventricular rate 94 BPM MUSE SYSTEM Atrial Rate 94 BPM MUSE SYSTEM P-R Interval 150 ms MUSE SYSTEM QRS Duration 106 ms MUSE SYSTEM Q-T Interval 354 ms MUSE SYSTEM QTC Calculated (Bezet) 442 ms MUSE SYSTEM Calculated P [place] 70 degrees MUSE SYSTEM Calculated R [place] 4 degrees MUSE SYSTEM Calculated T [place] 66 degrees MUSE SYSTEM INTERPRETATION Normal sinus rhythm Normal ECG When compared with ECG of 25-OCT-2023 11:39, Incomplete right bundle branch block is no longer Present Confirmed by MD Alesha, Rajinder Hartmann ([id number]) on 10/31/2023 10:47:00 AM MUSE SYSTEM 10/28/2023 4:01 AM EST 10/31/2023 10:47 AM EST Selma Brian MD ECG ORDERABLES Performing Organization Address City/[facility]/ZIP Co de Phone Number MUSE SYSTEM * XR Chest One View (10/28/2023 3:32 AM EST) Anatomical Region Laterality Modality Chest N/A Digital Radiogra phy Impressions 10/28/2023 3:39 AM EST FINDINGS/IMPRESSION:: Redemonstrated LLL probable atelectatic change with mild elevation of LEFT hemidiaphragm. No pneumothorax, pleural effusion, or confluent airspace opacity otherwise seen. Cardiomediastinal contours appear within normal limits for age. Accessed LEFT chest wall Mediport, catheter tip projects over the lower SVC. Thank you for letting us participate in the care of this patient. ??If you are a health care provider and have any questions regarding this report, please contact the number below. ??For patients who have questions please contact the health career law clerk that requested your imaging first. ? Electronically signed by: Allen García MD, [facility] ([phone]), at 10/28/2023 3:39 AM Narrative 10/28/2023 3:39 AM EST EXAMINATION: XR CHEST ONE VIEW CLINICAL HISTORY: increase in O2 requirement TECHNIQUE: 1 view of the chest portable semiupright rotated COMPARISON: CT chest 10/24/2023 Procedure Note Allen García MD - 10/28/2023 EXAMINATION: XR CHEST ONE VIEW CLINICAL HISTORY: increase in O2 requirement TECHNIQUE: 1 view of the chest portable semiupright rotated COMPARISON: CT chest 10/24/2023 IMPRESSION FINDINGS/IMPRESSION:: Redemonstrated LLL probable atelectatic change with mild elevation ofLEFT hemidiaphragm. No pneumothorax, pleural effusion, or confluent airspaceopacity otherwise seen. Cardiomediastinal contours appear within normal limits forage. Accessed LEFT chest wall Mediport, catheter tip projects over the lowerSVC. Thank you for letting us participate in the care of this patient. If youare a health care provider and have any questions regarding this report,please contact the number below. For patients who have questions please contactthe health career law clerk that requested your imaging first. Electronically signed by: Allen García MD, [facility]([phone]), at 10/28/2023 3:39 AM Selma Brian MD IMG DX ORDERABLES * (ABNORMAL) Differential, Automated (10/28/2023 12:12 AM EST) Neutrophil % 78.7 % [facility] Neutrophil Absolute 6.64(H) 1.70 - 6.10 x10(3)/mc L [facility] Lymph % 12.7 % [facility] Lymphocytes Abs 1.1 0.9 - 3.2 x10(3)/mc L [facility] Monocyte % 6.6 % [facility] Monocyte Abs 0.6 0.3 - 0.9 x10(3)/ L [facility] Eos % 0.9 % [facility] Eosinophils Abs 0.1 0.0 - 0.4 x10(3)/ L [facility] Basophil % 0.4 % [facility] Baso Absolute 0.0 0.0 - 0.1 x10(3)/mc L [facility] Immature Gran % 0.70 % [facility] Comment: Immature granulocytes(IG's)percentage and absolute count will include metamyelocytes, myelocytes, and promyelocytes. Blood smears from CBCs yielding IG's will be scanned manually for concordance. If this scan disagrees with the automated IG or if promyelocytes are noted, a manual differential will be performed. Immature Gran Absolute 0.06(H) 0.00 - 0.04 x10(3)/mc L [facility] Blood 10/28/2023 12:1 2 AM EST 10/28/2023 12:19 AM EST Narrative Resulting Agency Comment Spec In Lab Amelia Ngo MD HEMATOLOGY ORDERABLE S [facility] [place] [address] * (ABNORMAL) Hemogram (10/28/2023 12:12 AM EST) White Blood Cell 8.4 4.0 - 9.5 x10(3)/mc L [facility] Red Blood Cell 3.24(L) 4.58 - 5.54 x10(6)/mc L [facility] Hemoglobin 9.7(L) 13.7 - 16.5 g/dL [facility] Hematocrit 28.8(L) 40.5 - 48.5 % [facility] Mean Cell Volume 88.9 82.9 - 93.1 fL [facility] Mean Cell Hemoglobin 29.9 27.5 - 32.1 pg [facility] Mean Cell Hemoglobin Concentration 33.7 32.0 - 35.7 g/dL [facility] Platelet 149 145 - 357 x10(3)/mc L [facility] RDW Standard Deviation 46.2(H) 36.0 - 45.0 fL [facility] RDW coefficient of variation 14.2(H) 11.4 - 13.8 % [facility] Mean Platelet Volume 11.1 7.6 - 12.9 fL [facility] NRBC% auto 0.0 % [facility] NRBC Absolute 0.000 0.000 - 0.000 x10(3)/ L [facility] Blood 10/28/2023 12:1 2 AM EST 10/28/2023 12:19 AM EST Narrative Resulting Agency Comment Spec In Lab Amelia Ngo MD HEMATOLOGY ORDERABLE S Performing Organization Address City/State/[facility] Co de Phone Number [facility] [place] [address] * (ABNORMAL) Basic Metabolic Panel (non-fasting) (10/28/2023 12:12 AM EST) Glucose 94 65 - 199 mg/dL [facility] Comment:Diabetes: >=200 mg/d L plus symptoms Blood Urea Nitrogen 13 10 - 20 mg/dL [facility] Creatinine 0.82 0.80 - 1.50 mg/dL [facility] Sodium 142 135 - 145 mmol/L [facility] Potassium 3.7 3.5 - 5.0 mmol/L [facility] Comment: Please note: ??Patients with WBC >100,000 may have falsely elevated Potassium levels. ??For accurate Potassium quantification in these patients send serum separator tube (gold top) for subsequent determinations. ??Contact the Clinical Chemistry Laboratory if there are any questions. Chloride 108(H) 98 - 107 mmol/L [facility] Carbon Dioxide 24 22 - 31 mmol/L [facility] Anion Gap 10 5 - 15 mmol/L [facility] Calcium 8.2(L) 8.5 - 10.5 mg/dL [facility] Est Glomerular Filtration Rate 103 >=60 mL/min/1. 73 m?? [facility] Comment: This patient's estimated GFR was [...] and symptoms in addition to eGFR. Blood 10/28/2023 12:1 2 AM EST 10/28/2023 12:19 AM EST Narrative Resulting Agency Comment Spec In Lab Selma Brian MD CHEMISTRY ORDERABL ES [facility] [place] [address] * POCT Glucose (10/27/2023 12:38 PM EST) Glucose, POC 92 65 - 199 mg/dL [facility] Comment: Supplemental ranges: <140 mg/dL before meals <180 mg/dL all other times of the day Blood 10/27/2023 12:3 8 PM EST 10/27/2023 12:38 PM EST Selma Brian MD POINT OF CARE TEST ORDERABLES [facility] [place] [address] * POCT Glucose (10/27/2023 8:01 AM EST) Glucose, POC 104 65 - 199 mg/dL [facility] Comment: Supplemental ranges: <140 mg/dL before meals <180 mg/dL all other times of the day Blood 10/27/2023 8:01 AM EST 10/27/2023 8:01 AM EST Selma Brian MD POINT OF CARE TEST ORDERABLES Performing Organization Address [facility] Co de Phone Number [facility] [place] [address] * POCT Glucose (10/27/2023 3:51 AM EST) Glucose, POC 86 65 - 199 mg/dL [facility] Comment: Supplemental ranges: <140 mg/dL before meals <180 mg/dL all other times of the day Blood 10/27/2023 3:51 AM EST 10/27/2023 3:51 AM EST Selma Brian MD POINT OF CARE TEST ORDERABLES Performing Organization Address [facility] de Phone Number [facility] [place] [address] * POCT Glucose (10/27/2023 12:44 AM EST) Glucose, POC 86 65 - 199 mg/dL [facility] Comment: Supplemental ranges: <140 mg/dL before meals <180 mg/dL all other times of the day Blood 10/27/2023 12:4 4 AM EST 10/27/2023 12:44 AM EST Selma Brian MD POINT OF CARE TEST ORDERABLES Performing Organization Address [facility] de Phone Number [facility] [place] [address] * (ABNORMAL) Differential, Automated (10/27/2023 12:37 AM EST) Neutrophil % 83.0 % [facility] Neutrophil Absolute 12.68(H) 1.70 - 6.10 x10(3)/mc L [facility] Lymph % 9.6 % [facility] Lymphocytes Abs 1.5 0.9 - 3.2 x10(3)/mc L [facility] Monocyte % 4.8 % [facility] Monocyte Abs 0.7 0.3 - 0.9 x10(3)/[facility] Eos % 1.6 % [facility] Eosinophils Abs 0.2 0.0 - 0.4 x10(3)/[facility] Basophil % 0.2 % [facility] Baso Absolute 0.0 0.0 - 0.1 x10(3)/[facility] Immature Gran % 0.80 % [facility] Comment: Immature granulocytes(IG's)percentage and absolute count will include metamyelocytes, myelocytes, and promyelocytes. Blood smears from CBCs yielding IG's will be scanned manually for concordance. If this scan disagrees with the automated IG or if promyelocytes are noted, a manual differential will be performed. Immature Gran Absolute 0.12(H) 0.00 - 0.04 x10(3)/[facility] Blood 10/27/2023 12:3 7 AM EST 10/27/2023 12:49 AM EST Narrative Resulting Agency Comment Spec In Lab Amelia Ngo MD HEMATOLOGY ORDERABLE S Performing Organization Address City/State/[facility] Co de Phone Number [facility] [place] [address] * (ABNORMAL) Hemogram (10/27/2023 12:37 AM EST) White Blood Cell 15.3(H) 4.0 - 9.5 x10(3)/[facility] Red Blood Cell 3.26(L) 4.58 - 5.54 x10(6)/[facility] Hemoglobin 9.8(L) 13.7 - 16.5 g/dL [facility] Hematocrit 28.8(L) 40.5 - 48.5 % [facility] Mean Cell Volume 88.3 82.9 - 93.1 fL [facility] Mean Cell Hemoglobin 30.1 27.5 - 32.1 pg [facility] Mean Cell Hemoglobin Concentration 34.0 32.0 - 35.7 g/dL [facility] Platelet 160 145 - 357 x10(3)/mc L [facility] RDW Standard Deviation 47.3(H) 36.0 - 45.0 fL [facility] RDW coefficient of variation 14.4(H) 11.4 - 13.8 % [facility] Mean Platelet Volume 10.7 7.6 - 12.9 fL [facility] NRBC% auto 0.0 % [facility] NRBC Absolute 0.000 0.000 - 0.000 x10(3)/mc L [facility] Blood 10/27/2023 12:3 7 AM EST 10/27/2023 12:49 AM EST Narrative Resulting Agency Comment Spec In Lab Amelia Ngo MD HEMATOLOGY ORDERABLE S Performing Organization Address City/[facility]/ZIP Co de Phone Number [facility] [place] [address] * (ABNORMAL) Phosphorus (10/27/2023 12:37 AM EST) Phosphorus 2.4(L) 2.5 - 4.5 mg/dL [facility] Blood 10/27/2023 12:3 7 AM EST 10/27/2023 12:49 AM EST Narrative Resulting Agency Comment Spec In Lab Yoel Sethi Jr., MD CHEMISTRY ORDERA BLES Performing Organization Address City/[facility] Co de Phone Number [facility] [place] [address] * Magnesium (10/27/2023 12:37 AM EST) Magnesium 0.91 0.69 - 1.07 mmol/L [facility] Blood 10/27/2023 12:3 7 AM EST 10/27/2023 12:49 AM EST Narrative Resulting Agency Comment Spec In Lab Yoel Sethi Jr., MD CHEMISTRY ORDERA BLES Performing Organization Address City/[facility]/ZIP Co de Phone Number [facility] [place] [address] * (ABNORMAL) Basic Metabolic Panel (non-fasting) (10/27/2023 12:37 AM EST) Glucose 83 65 - 199 mg/dL [facility] Comment:Diabetes: >=200 mg/d L plus symptoms Blood Urea Nitrogen 19 10 - 20 mg/dL [facility] Creatinine 0.87 0.80 - 1.50 mg/dL [facility] Sodium 141 135 - 145 mmol/L [facility] Potassium 3.6 3.5 - 5.0 mmol/L [facility] Comment: Please note: ??Patients with WBC >100,000 may have falsely elevated Potassium levels. ??For accurate Potassium quantification in these patients send serum separator tube (gold top) for subsequent determinations. ??Contact the Clinical Chemistry Laboratory if there are any questions. Chloride 110(H) 98 - 107 mmol/L [facility] Carbon Dioxide 21(L) 22 - 31 mmol/L [facility] Anion Gap 10 5 - 15 mmol/L [facility] Calcium 8.1(L) 8.5 - 10.5 mg/dL [facility] Est Glomerular Filtration Rate 101 >=60 mL/min/1. 73 m?? [facility] Comment: This patient's estimated GFR was [...] and symptoms in addition to eGFR. Blood 10/27/2023 12:3 7 AM EST 10/27/2023 12:49 AM EST Narrative Resulting Agency Comment Spec In Lab Selma Brian MD CHEMISTRY ORDERABL ES [facility] [place] [address] * POCT Glucose (10/26/2023 7:31 PM EST) Glucose, POC 111 65 - 199 mg/dL [facility] Comment: Supplemental ranges: <140 mg/dL before meals <180 mg/dL all other times of the day Blood 10/26/2023 7:31 PM EST 10/26/2023 7:31 PM EST Selma Brian MD POINT OF CARE TEST ORDERABLES Performing Organization Address City/[facility]/ZIP Co de Phone Number [facility] [place] [address] * POCT Glucose (10/26/2023 4:57 PM EST) Glucose, POC 89 65 - 199 mg/dL [facility] Comment: Supplemental ranges: <140 mg/dL before meals <180 mg/dL all other times of the day Blood 10/26/2023 4:57 PM EST 10/26/2023 4:57 PM EST Selma Brian MD POINT OF CARE TEST ORDERABLES Performing Organization Address City/[facility]/ZIP Co de Phone Number [facility] [place] [address] * POCT Glucose (10/26/2023 4:04 PM EST) Glucose, POC 77 65 - 199 mg/dL [facility] Comment: Supplemental ranges: <140 mg/dL before meals <180 mg/dL all other times of the day Blood 10/26/2023 4:04 PM EST 10/26/2023 4:04 PM EST Selma Brian MD POINT OF CARE TEST ORDERABLES Performing Organization Address City/[facility] Co de Phone Number [facility] [place] [address] * POCT Glucose (10/26/2023 12:10 PM EST) Glucose, POC 77 65 - 199 mg/dL [facility] Comment: Supplemental ranges: <140 mg/dL before meals <180 mg/dL all other times of the day Blood 10/26/2023 12:1 0 PM EST 10/26/2023 12:10 PM EST Selma Brian MD POINT OF CARE TEST ORDERABLES Performing Organization Address City/[facility]/ZIP Co de Phone Number [facility] [place] [address] * POCT Glucose (10/26/2023 7:27 AM EST) Glucose, POC 85 65 - 199 mg/dL [facility] Comment: Supplemental ranges: <140 mg/dL before meals <180 mg/dL all other times of the day Blood 10/26/2023 7:27 AM EST 10/26/2023 7:27 AM EST Dedra Arrington DO POINT OF CA RE TEST ORDERABLES Performing Organization Address [facility] Co de Phone Number [facility] [place] [address] * POCT Glucose (10/26/2023 4:36 AM EST) Glucose, POC 84 65 - 199 mg/dL [facility] Comment: Supplemental ranges: <140 mg/dL before meals <180 mg/dL all other times of the day Blood 10/26/2023 4:36 AM EST 10/26/2023 4:36 AM EST Dedra Arrington DO POINT OF CA RE TEST ORDERABLES Performing Organization Address City/[facility] Co de Phone Number [facility] [place] [address] * (ABNORMAL) Differential, Automated (10/26/2023 12:59 AM EST) Neutrophil % 88.5 % [facility] Neutrophil Absolute 17.54(H) 1.70 - 6.10 x10(3)/mc L [facility] Lymph % 4.1 % [facility] Lymphocytes Abs 0.8(L) 0.9 - 3.2 x10(3)/mc L [facility] Monocyte % 5.6 % [facility] Monocyte Abs 1.1(H) 0.3 - 0.9 x10(3)/mc L [facility] Eos % 0.2 % [facility] Eosinophils Abs 0.0 0.0 - 0.4 x10(3)/mc L [facility] Basophil % 0.2 % [facility] Baso Absolute 0.0 0.0 - 0.1 x10(3)/mc L [facility] Immature Gran % 1.40 % [facility] Comment: Immature granulocytes(IG's)percentage and absolute count will include metamyelocytes, myelocytes, and promyelocytes. Blood smears from CBCs yielding IG's will be scanned manually for concordance. If this scan disagrees with the automated IG or if promyelocytes are noted, a manual differential will be performed. Immature Gran Absolute 0.28(H) 0.00 - 0.04 x10(3)/ L [facility] Blood 10/26/2023 12:5 9 AM EST 10/26/2023 1:13 AM EST Narrative Resulting Agency Comment Spec In Lab Amelia Ngo MD HEMATOLOGY ORDERABLE S [facility] [place] [address] * (ABNORMAL) Hemogram (10/26/2023 12:59 AM EST) White Blood Cell 19.8(H) 4.0 - 9.5 x10(3)/ L [facility] Red Blood Cell 3.39(L) 4.58 - 5.54 x10(6)/ L [facility] Hemoglobin 10.2(L) 13.7 - 16.5 g/dL [facility] Hematocrit 29.8(L) 40.5 - 48.5 % [facility] Mean Cell Volume 87.9 82.9 - 93.1 fL [facility] Mean Cell Hemoglobin 30.1 27.5 - 32.1 pg [facility] Mean Cell Hemoglobin Concentration 34.2 32.0 - 35.7 g/dL [facility] Platelet 163 145 - 357 x10(3)/ L [facility] RDW Standard Deviation 46.2(H) 36.0 - 45.0 fL [facility] RDW coefficient of variation 14.3(H) 11.4 - 13.8 % [facility] Mean Platelet Volume 10.8 7.6 - 12.9 fL [facility] NRBC% auto 0.0 % [facility] NRBC Absolute 0.000 0.000 - 0.000 x10(3)/mc L [facility] Blood 10/26/2023 12:5 9 AM EST 10/26/2023 1:13 AM EST Narrative Resulting Agency Comment Spec In Lab Amelia Ngo MD HEMATOLOGY ORDERABLE S Performing Organization Address [facility] Co de Phone Number [facility] [place] [address] * POCT Glucose (10/26/2023 12:59 AM EST) Glucose, POC 105 65 - 199 mg/dL [facility] Comment: Supplemental ranges: <140 mg/dL before meals <180 mg/dL all other times of the day Blood 10/26/2023 12:5 9 AM EST 10/26/2023 12:59 AM EST Dedra Arrington DO POINT OF CA RE TEST ORDERABLES Performing Organization Address [facility] Co de Phone Number [facility] [place] [address] * (ABNORMAL) Phosphorus (10/26/2023 12:59 AM EST) Phosphorus 2.3(L) 2.5 - 4.5 mg/dL [facility] Blood 10/26/2023 12:5 9 AM EST 10/26/2023 1:13 AM EST Narrative Resulting Agency Comment Spec In Lab Yoel Sethi Jr., MD CHEMISTRY ORDERA BLES Performing Organization Address [facility] Co de Phone Number [facility] [place] [address] * Magnesium (10/26/2023 12:59 AM EST) Magnesium 0.97 0.69 - 1.07 mmol/L [facility] Comment:result rechecked-[id number] Blood 10/26/2023 12:5 9 AM EST 10/26/2023 1:13 AM EST Narrative Resulting Agency Comment Spec In Lab Yoel Sethi Jr., MD CHEMISTRY ORDERA BLES [facility] [place] [address] * (ABNORMAL) Basic Metabolic Panel (non-fasting) (10/26/2023 12:59 AM EST) Glucose 100 65 - 199 mg/dL [facility] Comment:Diabetes: >=200 mg/d L plus symptoms Blood Urea Nitrogen 23(H) 10 - 20 mg/dL [facility] Creatinine 0.87 0.80 - 1.50 mg/dL [facility] Sodium 139 135 - 145 mmol/L [facility] Potassium 3.9 3.5 - 5.0 mmol/L [facility] Comment: Please note: ??Patients with WBC >100,000 may have falsely elevated Potassium levels. ??For accurate Potassium quantification in these patients send serum separator tube (gold top) for subsequent determinations. ??Contact the Clinical Chemistry Laboratory if there are any questions. Chloride 109(H) 98 - 107 mmol/L [facility] Carbon Dioxide 20(L) 22 - 31 mmol/L [facility] Anion Gap 10 5 - 15 mmol/L [facility] Calcium 8.0(L) 8.5 - 10.5 mg/dL [facility] Est Glomerular Filtration Rate 101 >=60 mL/min/1. 73 m?? [facility] Comment: This patient's estimated GFR was [...] and symptoms in addition to eGFR. Blood 10/26/2023 12:5 9 AM EST 10/26/2023 1:13 AM EST Narrative Resulting Agency Comment Spec In Lab Selma Brian MD CHEMISTRY ORDERABL ES Performing Organization Address [facility] Co de Phone Number [facility] [place] [address] * POCT Glucose (10/25/2023 8:57 PM EST) Glucose, POC 85 65 - 199 mg/dL [facility] Comment: Supplemental ranges: <140 mg/dL before meals <180 mg/dL all other times of the day Blood 10/25/2023 8:57 PM EST 10/25/2023 8:57 PM EST Dedra Kahn Atchialejandro DO POINT OF CA RE TEST ORDERABLES Performing Organization Address [facility] Co de Phone Number [facility] [place] [address] * POCT Glucose (10/25/2023 3:26 PM EST) Glucose, POC 97 65 - 199 mg/dL [facility] Comment: Supplemental ranges: <140 mg/dL before meals <180 mg/dL all other times of the day Blood 10/25/2023 3:26 PM EST 10/25/2023 3:26 PM EST Dedra Kahn Atchinsgi DO POINT OF CA RE TEST ORDERABLES Performing Organization Address [facility] Co de Phone Number [facility] [place] [address] * EKG 12 Lead (10/25/2023 11:39 AM EST) Ventricular rate 78 BPM MUSE SYSTEM Atrial Rate 78 BPM MUSE SYSTEM P-R Interval 132 ms MUSE SYSTEM QRS Duration 110 ms MUSE SYSTEM Q-T Interval 392 ms MUSE SYSTEM QTC Calculated (Bezet) 446 ms MUSE SYSTEM Calculated P [place] 66 degrees MUSE SYSTEM Calculated R [place] 3 degrees MUSE SYSTEM Calculated T [place] 65 degrees MUSE SYSTEM INTERPRETATION Normal sinus rhythm Incomplete right bundle branch block Nonspecific T wave abnormality Abnormal ECG No previous ECGs available Confirmed by MD Powers David ([id number]) on 10/26/2023 7:18:06 PM MUSE SYSTEM 10/25/2023 11:3 9 AM EST 10/26/2023 7:18 PM EST Yoel Sethi Jr., MD ECG ORDERABLES MUSE SYSTEM * POCT Glucose (10/25/2023 11:06 AM EST) Glucose, POC 96 65 - 199 mg/dL [facility] Comment: Supplemental ranges: <140 mg/dL before meals <180 mg/dL all other times of the day Blood 10/25/2023 11:0 6 AM EST 10/25/2023 11:06 AM EST Dedra Arrington DO POINT OF CA RE TEST ORDERABLES Performing Organization Address [facility] Co de Phone Number [facility] [place] [address] * Phosphorus (10/25/2023 10:50 AM EST) Phosphorus 2.8 2.5 - 4.5 mg/dL [facility] Blood Venous Draw / Unknown 10/25/2023 10:50 AM EST 10/25/2023 11:07 AM EST Narrative Resulting Agency Comment Spec In Lab Amelia Ngo MD CHEMISTRY ORDERABLES Performing Organization Address [facility] Co de Phone Number [facility] [place] [address] * (ABNORMAL) Magnesium (10/25/2023 10:50 AM EST) Magnesium 0.57(L) 0.69 - 1.07 mmol/L [facility] Blood Venous Draw / Unknown 10/25/2023 10:50 AM EST 10/25/2023 11:07 AM EST Narrative Resulting Agency Comment Spec In Lab Amelia Ngo MD [place] [address] * (ABNORMAL) Differential, Automated (10/25/2023 10:50 AM EST) Neutrophil % 83.2 % [facility] Neutrophil Absolute 30.11(H) 1.70 - 6.10 x10(3)/mc L [facility] Lymph % 5.5 % [facility] Lymphocytes Abs 2.0 0.9 - 3.2 x10(3)/mc L [facility] Monocyte % 6.5 % [facility] Monocyte Abs 2.3(H) 0.3 - 0.9 x10(3)/mc L [facility] Eos % 0.0 % [facility] Eosinophils Abs 0.0 0.0 - 0.4 x10(3)/mc L [facility] Basophil % 0.4 % [facility] Baso Absolute 0.1 0.0 - 0.1 x10(3)/mc L [facility] Immature Gran % 4.40 % [facility] Comment: Immature granulocytes(IG's)percentage and absolute count will include metamyelocytes, myelocytes, and promyelocytes. Blood smears from CBCs yielding IG's will be scanned manually for concordance. If this scan disagrees with the automated IG or if promyelocytes are noted, a manual differential will be performed. Immature Gran Absolute 1.58(H) 0.00 - 0.04 x10(3)/mc L [facility] Blood 10/25/2023 10:5 0 AM EST 10/25/2023 11:07 AM EST Narrative Resulting Agency Comment Spec In Lab Amelia Ngo MD [place] [address] * (ABNORMAL) Hemogram (10/25/2023 10:50 AM EST) White Blood Cell 36.2(Crit ical) 4.0 - 9.5 x10(3)/mc L [facility] Comment: This result has been called to DEE MCLEAN by Alberta Shankar on 10 25 2023 at 1136, and has been read back. Red Blood Cell 2.91(L) 4.58 - 5.54 x10(6)/mc L [facility] Hemoglobin 8.8(L) 13.7 - 16.5 g/dL [facility] Comment: This result has been called to DEE MCLEAN by Alberta Shankar on 10 25 2023 at 1136, and has been read back. Hematocrit 25.6(L) 40.5 - 48.5 % [facility] Mean Cell Volume 88.0 82.9 - 93.1 fL [facility] Mean Cell Hemoglobin 30.2 27.5 - 32.1 pg [facility] Mean Cell Hemoglobin Concentration 34.4 32.0 - 35.7 g/dL [facility] Platelet 227 145 - 357 x10(3)/mc L [facility] RDW Standard Deviation 45.5(H) 36.0 - 45.0 fL [facility] RDW coefficient of variation 14.1(H) 11.4 - 13.8 % [facility] Mean Platelet Volume 11.1 7.6 - 12.9 fL [facility] NRBC% auto 0.0 % [facility] NRBC Absolute 0.000 0.000 - 0.000 x10(3)/mc L [facility] Blood 10/25/2023 10:5 0 AM EST 10/25/2023 11:07 AM EST Narrative Resulting Agency Comment Spec In Lab Amelia Ngo MD HEMATOLOGY ORDERABLE S [facility] [place] [address] * (ABNORMAL) Comprehensive metabolic panel (non-fasting) (10/25/2023 10:50 AM EST) Glucose 91 65 - 199 mg/dL [facility] Comment:Diabetes: >=200 mg/d L plus symptoms Blood Urea Nitrogen 26(H) 10 - 20 mg/dL [facility] Creatinine 1.04 0.80 - 1.50 mg/dL [facility] Sodium 139 135 - 145 mmol/L [facility] Potassium 3.7 3.5 - 5.0 mmol/L [facility] Comment: Please note: ??Patients with WBC >100,000 may have falsely elevated Potassium levels. ??For accurate Potassium quantification in these patients send serum separator tube (gold top) for subsequent determinations. ??Contact the Clinical Chemistry Laboratory if there are any questions. Chloride 106 98 - 107 mmol/L [facility] Carbon Dioxide 21(L) 22 - 31 mmol/L [facility] Anion Gap 12 5 - 15 mmol/L [facility] Calcium 8.1(L) 8.5 - 10.5 mg/dL [facility] Protein, Total 5.4(L) 6.1 - 8.0 g/dL [facility] Albumin 3.2 3.2 - 5.2 g/dL [facility] Aspartate Aminotransferase 40(H) 0 - 39 unit/L [facility] Alanine Aminotransferase 27 0 - 55 unit/L [facility] Alkaline Phosphatase 54 40 - 130 unit/L [facility] Bilirubin, Total 0.3 0.2 - 1.3 mg/dL [facility] Est Glomerular Filtration Rate 84 >=60 mL/min/1. 73 m?? [facility] Comment: This patient's estimated GFR was [...] and symptoms in addition to eGFR. Blood 10/25/2023 10:5 0 AM EST 10/25/2023 11:07 AM EST Narrative Resulting Agency Comment Spec In Lab Yoel Sethi Jr., MD CHEMISTRY KAUSHIKA MARYAM [facility] [place] [address] * Lactate, whole blood, send to lab ([facility]/CG) (10/25/2023 10:50 AM EST) Lactate WB 1.6 0.5 - 2.2 mmol/L [facility] Blood 10/25/2023 10:5 0 AM EST 10/25/2023 11:06 AM EST Narrative Resulting Agency Comment Spec In Lab Yoel Sethi Jr., MD CHEMISTRY ORDERA BLES Performing Organization Address City/[facility] Co de Phone Number [facility] [place] [address] * Blood culture (10/25/2023 10:50 AM EST) Blood Culture No growth at 5 days. [facility] Blood 10/25/2023 10:5 0 AM EST 10/25/2023 11:40 AM EST Comment:R wrist Narrative Resulting Agency Comment Spec In Lab Yoel Sethi Jr., MD MICROBIOLOGY - B LOOD ORDERABLES Performing Organization Address City/[facility] Co de Phone Number [facility] [place] [address] * Blood culture (10/25/2023 10:40 AM EST) Blood Culture No growth at 5 days. [facility] Blood 10/25/2023 10:4 0 AM EST 10/25/2023 11:40 AM EST Comment:RH Narrative Resulting Agency Comment Spec In Lab Yoel Sethi Jr., MD MICROBIOLOGY - B LOOD ORDERABLES Performing Organization Address City/[facility] Co de Phone Number [facility] [place] [address] * POCT Glucose (10/25/2023 9:55 AM EST) Glucose, POC 100 65 - 199 mg/dL [facility] Comment: Supplemental ranges: <140 mg/dL before meals <180 mg/dL all other times of the day Blood 10/25/2023 9:55 AM EST 10/25/2023 9:55 AM EST Yoel Sethi Jr., MD POINT OF CARE TE ST ORDERABLES [facility] [address] [id number] * XR Fluoro No Rad <1Hr - OR Use (10/25/2023 9:38 AM EST) Narrative Dicom, Auditing User - 10/25/2023 9:38 AM EST This exam is auto-finalizing. No interpretation was done. Selma Brian MD IMG FLUORO ORDERAB LES * (ABNORMAL) Urine culture Cystoscopic Urine (10/25/2023 9:13 AM EST) Urine Culture Greater than 50,000 cfu/mL Pseudomonas aeruginosa Greater than 50,000 cfu/mL Enterococcus faecalis (A) [facility] Organism Pseudomonas aeruginosa(A) [facility] Organism Enterococcus faecalis(A) [facility] Cystoscopic Urine 10/25/2023 9:13 AM EST 10/25/2023 10:12 AM EST Comment:R renal pelvis Narrative Resulting Agency Comment Spec In Lab [...] Sensitive Pseudomonas aeruginosa Tobramycin MICROSCAN METHOD Sensitive Enterococcus faecalis Ampicillin VITEK 2 METHOD Sensitive Enterococcus faecalis Ciprofloxacin VITEK 2 METHOD Resistant Enterococcus faecalis Levofloxacin VITEK 2 METHOD Resistant Enterococcus faecalis Nitrofurantoin VITEK 2 METHOD Sensitive Enterococcus faecalis Penicillin VITEK 2 METHOD Sensitive Enterococcus faecalis Vancomycin VITEK 2 METHOD Sensitive Selma Brian MD MICROBIOLOGY - GEN ERAL ORDERABLES [facility] [place] [address] * Type and screen ([facility]/CGP/LAURIE) (10/25/2023 8:43 AM EST) ABORH Type AB POSITIVE [facility] Patient BB History Not Found [facility] Expires at 1340 on: 10-28-2023 [facility] Ab Screen Interp Negative [facility] Blood 10/25/2023 8:43 AM EST 10/25/2023 8:43 AM EST Narrative [facility] - 10/25/2023 8:43 AM EST This Type and Screen result is only valid at the [facility] Resulting Agency Comment Spec In Lab Cheyanne Lemon MD BLOOD BANK LAB AMANDA DIXON Performing Organization Address City/[facility]/ZIP Co de Phone Number [facility] [place] [address] * Hemoglobin A1c (10/25/2023 7:58 AM EST) Hemoglobin A1c 4.8 4.3 - 5.6 % [facility] Comment: Reference Range: 4.3 - 5.6% 5.7 - 6.4% - Increased Risk of Developing Diabetes Mellitus >= 6.5% - Consistent with diagnosis of Diabetes Mellitus In the absence of hyperglycemia (i.e. plasma glucose > 200 mg/dL) or classic symptoms of hyperglycemia a repeat measurement of HbA1c should be performed on a separate sample to confirm the diagnosis. Diagnosis and Classification of Diabetes Mellitus, Diabetes Care 2013; 36: Suppl. 1, M18-33 Estimated Average Glucose 92 mg/dL [facility] Comment: Note: The eAG calculation has not been proven valid for women, individuals below 18 years old or above 70 years old, or individuals with hemoglobinopathies. Estimated average glucose (eAG) is calculated from the equation described in: Sal PARISH, Jorge J, Eddie R, et al. ??Translating the A1C assay into estimated average glucose values. ??Diabetes Care 2008:31(8):6484-3859. Additional resources are available on the ADA website (diabetes.org). Blood Venous Draw / Unknown 10/25/2023 7:58 AM EST 10/25/2023 10:54 AM EST Narrative Resulting Agency Comment Spec In Lab Nallely E Caille BEADING MACHINE OPERATOR CHEMISTRY ORDERA BLES Performing Organization Address City/[facility]/ZIP Co de Phone Number [facility] [place] [address] * Phosphorus (10/25/2023 7:58 AM EST) Pathologist [facility] Phosphorus 3.0 2.5 - 4.5 mg/dL [facility] Blood Venous Draw / Unknown 10/25/2023 7:58 AM EST 10/25/2023 8:13 AM EST Narrative Resulting Agency Comment Spec In Lab Nallely E Caille BEADING MACHINE OPERATOR CHEMISTRY ORDERA BLES Performing Organization Address City/[facility]/ZIP Co de Phone Number [facility] [place] [address] * (ABNORMAL) Magnesium (10/25/2023 7:58 AM EST) Pathologist [facility] Magnesium 0.55(L) 0.69 - 1.07 mmol/L [facility] Blood Venous Draw / Unknown 10/25/2023 7:58 AM EST 10/25/2023 8:13 AM EST Narrative Resulting Agency Comment Spec In Lab Nallely E Caille BEADING MACHINE OPERATOR CHEMISTRY ORDERA BLES Performing Organization Address City/[facility] Co de Phone Number [facility] [place] [address] * Scan, Peripheral Blood (10/25/2023 7:58 AM EST) Plat estimate Normal [facility] RBC Morphology Abnormal [facility] Ovalocytes 1-5 /HPF [facility] [place] Cells 1-5 /HPF [facility] Vacuolated Neut Present [facility] Blood 10/25/2023 7:58 AM EST 10/25/2023 8:11 AM EST Narrative Resulting Agency Comment Spec In Lab Cheyanne Lemon MD HEMATOLOGY ORDERABL ES Performing Organization Address City/[facility]/ZIP Co de Phone Number [facility] [place] [address] * (ABNORMAL) Differential, Automated (10/25/2023 7:58 AM EST) Neutrophil % 83.8 % [facility] Neutrophil Absolute 23.81(H) 1.70 - 6.10 x10(3)/mc L [facility] Lymph % 3.8 % [facility] Lymphocytes Abs 1.1 0.9 - 3.2 x10(3)/mc L [facility] Monocyte % 6.7 % [facility] Monocyte Abs 1.9(H) 0.3 - 0.9 x10(3)/mc L [facility] Eos % 0.1 % [facility] Eosinophils Abs 0.0 0.0 - 0.4 x10(3)/mc L [facility] Basophil % 0.2 % [facility] Baso Absolute 0.1 0.0 - 0.1 x10(3)/mc L [facility] Immature Gran % 5.40 % [facility] Comment: Immature granulocytes(IG's)percentage and absolute count will include metamyelocytes, myelocytes, and promyelocytes. Blood smears from CBCs yielding IG's will be scanned manually for concordance. If this scan disagrees with the automated IG or if promyelocytes are noted, a manual differential will be performed. Immature Gran Absolute 1.54(H) 0.00 - 0.04 x10(3)/mc L [facility] Blood 10/25/2023 7:58 AM EST 10/25/2023 8:11 AM EST Narrative Resulting Agency Comment Spec In Lab Cheyanne Lemon MD HEMATOLOGY ORDERABL ES Performing Organization Address City/[facility]/ZIP Co de Phone Number [facility] [place] [address] * (ABNORMAL) Hemogram (10/25/2023 7:58 AM EST) White Blood Cell 28.4(H) 4.0 - 9.5 x10(3)/mc L [facility] Red Blood Cell 3.76(L) 4.58 - 5.54 x10(6)/mc L [facility] Hemoglobin 11.2(L) 13.7 - 16.5 g/dL [facility] Hematocrit 32.9(L) 40.5 - 48.5 % [facility] Mean Cell Volume 87.5 82.9 - 93.1 fL [facility] Mean Cell Hemoglobin 29.8 27.5 - 32.1 pg [facility] Mean Cell Hemoglobin Concentration 34.0 32.0 - 35.7 g/dL [facility] Platelet 168 145 - 357 x10(3)/mc L [facility] RDW Standard Deviation 44.8 36.0 - 45.0 fL [facility] RDW coefficient of variation 14.0(H) 11.4 - 13.8 % [facility] Mean Platelet Volume 11.3 7.6 - 12.9 fL [facility] NRBC% auto 0.0 % [facility] NRBC Absolute 0.000 0.000 - 0.000 x10(3)/ L [facility] Blood 10/25/2023 7:58 AM EST 10/25/2023 8:11 AM EST Narrative Resulting Agency Comment Spec In Lab Cheyanne Lemon MD HEMATOLOGY ORDERABL ES Performing Organization Address City/State/[facility] Co de Phone Number [facility] [place] [address] * (ABNORMAL) Basic Metabolic Panel (non-fasting) (10/25/2023 7:58 AM EST) Glucose 101 65 - 199 mg/dL [facility] Comment:Diabetes: >=200 mg/d L plus symptoms Blood Urea Nitrogen 26(H) 10 - 20 mg/dL [facility] Creatinine 1.11 0.80 - 1.50 mg/dL [facility] Sodium 136 135 - 145 mmol/L [facility] Potassium 4.0 3.5 - 5.0 mmol/L [facility] Comment: Please note: ??Patients with WBC >100,000 may have falsely elevated Potassium levels. ??For accurate Potassium quantification in these patients send serum separator tube (gold top) for subsequent determinations. ??Contact the Clinical Chemistry Laboratory if there are any questions. Chloride 105 98 - 107 mmol/L [facility] Carbon Dioxide 14(L) 22 - 31 mmol/L [facility] Anion Gap 17(H) 5 - 15 mmol/L [facility] Calcium 8.5 8.5 - 10.5 mg/dL [facility] Est Glomerular Filtration Rate 78 >=60 mL/min/1. 73 m?? [facility] Comment: This patient's estimated GFR was [...] and symptoms in addition to eGFR. Blood 10/25/2023 7:58 AM EST 10/25/2023 8:11 AM EST Narrative Resulting Agency Comment Spec In Lab Cheyanne Lemon MD CHEMISTRY ORDERABLE S Performing Organization Address City/State/[facility] Co de Phone Number [facility] [place] [address] documented in this encounter Visit Diagnoses Diagnosis Septic shock- Primary Septic shock Sepsis, due to unspecified organism, unspecified whether acute organ dysfunction present Ureteral stone Calculus of ureter Pyelonephritis, acute Acute pyelonephritis without lesion of renal medullary necrosis Oxygen desaturation Hypoxemia Bacteremia Quadriplegia Quadriplegia, unspecified documented in this encounter Admitting Diagnoses Diagnosis Septic shock documented in this encounter Administered Medications Inactive Administered Medications - up to 3 most recent administrations Medication Order MAR Action Action Date Dose Rate Site acetaminophen (Ofirmev) (1,000 mg/100 mL) infusion 1,000 mg 1,000 mg, Intravenous, at 400 mL/hr, Administer over 15 Minutes, EVERY 8 HOURS SCHEDULED, 3 doses, First dose on 10/25/23 at 0616, Last dose on 10/25/23 at 2200, Maximum dose of acetaminophen is 4,000 mg from all sources in 24 hours. When ordered for pain, acetaminophen should be given even when other ordered pain medications are indicated., STAT, Is ketorolac (Toradol) IV contraindicated? Yes, Can this patient tolerate oral medications or suppositories? No Given 10/25/2023 10:17 PM EST 1,000 mg 400 mL/hr Given 10/25/2023 1:58 PM EST 1,000 mg 400 mL/hr Given 10/25/2023 6:20 AM EST 1,000 mg 400 mL/hr acetaminophen (Ofirmev) (1,000 mg/100 mL) infusion 1,000 mg 1,000 mg, Intravenous, at 400 mL/hr, Administer over 15 Minutes, EVERY 8 HOURS SCHEDULED, 3 doses, First dose (after last reorder) on Thu10/26/23 at 0600, Last dose on Thu10/26/23 at 2200, Maximum dose of acetaminophen is 4,000 mg from all sources in 24 hours. When ordered for pain, acetaminophen should be given even when other ordered pain medications are indicated., STAT, Is ketorolac (Toradol) IV contraindicated? Yes, Can this patient tolerate oral medications or suppositories? No Given 10/26/2023 6:53 AM EST 1,000 mg 400 mL/hr acetaminophen (Tylenol) tablet 650 mg 650 mg, Oral, EVERY 8 HOURS PRN, Starting on Thu10/26/23 at 2007, Until Thu11/09/23 at 1733, Pain, Fever, Maximum dose of acetaminophen is 4,000 mg from all sources in 24 hours. When ordered for pain, acetaminophen should be given even when other ordered pain medications are indicated., Routine Given 11/08/2023 6:34 AM EST 650 mg Given 11/06/2023 3:44 PM EST 650 mg Given 11/05/2023 2:44 PM EST 650 mg acetylcysteine (Mucomyst) 200 mg/mL (20 %) inhalation Solution 600 mg 600 mg, Inhalation, 2 TIMES DAILY, First dose on Thu10/28/23 at 0500, Until Discontinued, Notify Respiratory Care for Medication Administration For 300 mg doses: remove 1.5 mL of acetylcysteine and mix with 1.5 mL sterile water for injection and administer via inhalation route per order. For 600 mg doses: remove 3 mL of acetylcysteine and mix with 3 mL sterile water for injection and administer via inhalation route per order., Routine Given 10/28/2023 4:28 AM EST 600 mg acetylcysteine (Mucomyst) 200 mg/mL (20 %) inhalation Solution 600 mg 600 mg, Inhalation, EVERY 4 HOURS, First dose (after last modification) on Thu10/28/23 at 0830, Until Discontinued, Notify Respiratory Care for Medication Administration For 300 mg doses: remove 1.5 mL of acetylcysteine and mix with 1.5 mL sterile water for injection and administer via inhalation route per order. For 600 mg doses: remove 3 mL of acetylcysteine and mix with 3 mL sterile water for injection and administer via inhalation route per order., Routine Given 11/05/2023 8:04 AM EST 600 mg Given 11/04/2023 5:38 PM EST 600 mg Given 11/03/2023 3:45 PM EST 600 mg albumin (human) 5% 250 mL intravenous solution 12.5 g, Intravenous, EVERY 30 MIN, 1 dose, First dose on Thu10/25/23 at 1845, 1 bottle (unit) = 12.5 grams / 250 mL (Total Dose = 12.5 grams = 1 bottle), Routine New Bag 10/25/2023 5:58 PM EST 12.5 g amoxicillin-clavulanate (Augmentin) 875-125 mg per tablet 1 tablet 1 tablet, Oral, 2 TIMES DAILY, First dose on Thu10/30/23 at 2300, Until Discontinued, Routine, Indication for (Active or Suspected): Urinary Tract/Pyelonephritis Given 10/31/2023 9:26 AM EST 1 tablet Given 10/30/2023 10:44 PM EST 1 tablet baclofen (Lioresal) tablet 20 mg 20 mg, Oral, 3 TIMES DAILY, First dose on Thu10/25/23 at 1130, Until Discontinued, Routine Given 11/09/2023 2:3 5 PM EST 20 mg Given 11/09/2023 9:35 AM EST 20 mg Given 11/08/2023 9:06 PM EST 20 mg ceFEPime (Maxipime) 2g vial attach to sodium chloride 0.9% 100 mL Mini-Bag Plus 2 g 2 g, Intravenous, EVERY 8 HOURS, First dose on 10/25/23 at 0700, Until Discontinued, Administer over 3 Hours, Indication for (Active or Suspected): Bacteremia/Sepsis New Bag 10/26/2023 6:53 AM EST 2 g 3 3.3 mL/hr New Bag 10/25/2023 10:50 PM EST 2 g 33.3 mL/hr New Bag 10/25/2023 3:18 PM EST 2 g 33.3 mL/hr ciprofloxacin (Cipro) tablet 750 mg 750 mg, Oral, 2 TIMES DAILY, First dose on Thu10/30/23 at 2300, Until Discontinued, Routine, Indication for (Active or Suspected): Urinary Tract/Pyelonephritis Given 10/31/2023 6:22 AM EST 750 mg Given 10/30/2023 10:44 PM EST 750 mg divalproex ER (Depakote ER) tablet 500 mg 500 mg, Oral, DAILY, First dose on Thu10/26/23 at 1200, Until Discontinued, DO NOT SPLIT, CRUSH OR OPEN, Routine Given 11/09/2023 9:35 AM EST 500 mg Given 11/08/2023 12:20 PM EST 500 mg Given 11/07/2023 9:21 AM EST 500 mg docusate sodium (Colace) capsule 100 mg 100 mg, Oral, 3 TIMES DAILY, First dose on Thu10/25/23 at 1245, Until Discontinued, Routine Given 11/09/2023 12:00 PM EST 100 mg Given 11/08/2023 4:25 PM EST 100 mg Given 11/08/2023 12:20 PM EST 100 mg fentaNYL (PF) (50 mcg/mL) injection 25 mcg 25 mcg, Intravenous, EVERY 1 HOUR PRN, Starting on 10/25/23 at 1144, Until Thu10/25/23 at 2214, Pain, Moderate to severe pain 5-10/10, Routine Given 10/25/2023 8:53 PM EST 25 mcg fentaNYL (PF) (50 mcg/mL) injection 25-50 mcg 25-50 mcg, Intravenous, EVERY 1 HOUR PRN, Starting on 10/25/23 at 2213, Until Thu10/26/23 at 1104, Pain, For pain 4-7 give 25, if not improved in 15 minutes give another 25. For pain 8-10 give 50, , Routine Given 10/26/2023 4:27 AM EST 50 mcg Given 10/25/2023 10:18 PM EST 50 mcg fentaNYL (PF) (Sublimaze) 50 mcg/mL injection 1 dose, Starting on Thu10/25/23 at 2216, Until Thu10/25/23 at 2218, Tony Fenton: cabinet override furosemide (Lasix) (10 mg/mL) injection 40 mg 40 mg, Intravenous, ONCE, 1 dose, On Thu10/28/23 at 0630 Given 10/28/2023 5:51 AM EST 40 mg furosemide (Lasix) 10 mg/mL injection 1 dose, Starting on Thu10/28/23 at 0547, Until Thu10/28/23 at 0551, Gogo Galindo V.: cabinet override guaiFENesin (Robitussin) (20 mg/mL) oral liquid 200 mg 200 mg, Oral, EVERY 4 HOURS PRN, Starting on Thu10/28/23 at 0320, Until Thu11/09/23 at 1733, Cough, Maximum daily dose is 2400 mg, Routine Given 10/28/2023 3:31 AM EST 200 mg heparin (porcine) (5,000 units/1 mL) subcutaneous injection 5,000 Units 5,000 Units, Subcutaneous, EVERY 8 HOURS SCHEDULED, First dose on Thu10/25/23 at 1400, Until Discontinued, Routine Given 11/09/2023 2:35 PM EST 5,000 Unit s Given 11/08/2023 9:06 PM EST 5,000 Units Given 11/08/2023 4:25 PM EST 5,000 Units hydrOXYzine (Atarax) tablet 25 mg 25 mg, Oral, 3 TIMES DAILY PRN, Starting on Thu10/25/23 at 1152, Until Thu11/09/23 at 1733, Itching, Routine Given 11/08/2023 12:18 PM EST 25 mg Given 10/29/2023 8:17 PM EST 25 mg Given 10/29/2023 12:47 AM EST 25 mg iohexoL (Omnipaque) (350 mg/mL) solution 0-200 mL 0-200 mL, Intravenous, ONCE PRN, 1 dose, Starting on Thu10/30/23 at 0946, Until Thu11/09/23 at 1733, Per Protocol, Warning Vesicant/Irritant Medication , Radiology Contrast, Routine iohexoL (Omnipaque) (350 mg/mL) solution 0-200 mL 0-200 mL, Intravenous, ONCE PRN, 1 dose, Starting on Thu10/28/23 at 1253, Until Thu10/28/23 at 1253, Per Protocol, Warning Vesicant/Irritant Medication , Radiology Contrast, Routine Given 10/28/2023 12:53 PM EST 94 mLs ipratropium-albuteroL (Duoneb) 0.5 mg-3 mg(2.5 mg base)/3 mL nebulizer solution 3 mL 3 mL, Nebulization, EVERY 4 HOURS, First dose on Thu10/28/23 at 0400, Until Discontinued, Routine Given 11/09/2023 9:35 AM EST 3 mLs Given 11/08/2023 7:54 PM EST 3 mLs Given 11/08/2023 4:25 PM EST 3 mLs ipratropium-albuteroL (Duoneb) 0.5 mg-3 mg(2.5 mg base)/3 mL nebulizer solution 3 mL 3 mL, Nebulization, EVERY 4 HOURS PRN, Starting on Kathy 10/29/23 at 1119, Until 11/09/23 at 1733, Wheezing, for breakthrough SOB not adequately treated by scheduled duonebs, Routine Given 11/08/2023 12:18 PM EST 3 mLs Given 11/05/2023 5:14 AM EST 3 mLs Given 11/02/2023 5:37 AM EST 3 mLs lactated Ringers 1,000 mL IV bolus Intravenous, ONCE, 1 dose, On Thu11/01/23 at 1445 New Bag 11/01/2023 1:58 PM EST lactated Ringers 1,000 mL IV bolus at 500 mL/hr, Intravenous, ONCE, 1 dose, On Thu11/04/23 at 1900 New Bag 11/04/2023 6:48 PM EST 5 00 mL/hr lactated Ringers 1,000 mL IV bolus at 333.3 mL/hr, Intravenous, ONCE, 1 dose, On Thu11/04/23 at 2200 New Bag 11/04/2023 9:28 PM EST 333.3 mL/hr lactated Ringers 500 mL IV bolus Intravenous, ONCE, 1 dose, On Thu10/25/23 at 1215 New Bag 10/25/2023 11:31 AM EST 500 mL/hr lactated Ringers 500 mL IV bolus Intravenous, ONCE, 1 dose, On Thu10/25/23 at 1415 New Bag 10/25/2023 1:20 PM EST lactated Ringers 500 mL IV bolus Intravenous, ONCE, 1 dose, On Thu10/25/23 at 1600 New Bag 10/25/2023 3:18 PM EST LORazepam (Ativan) tablet 0.5 mg 0.5 mg, Oral, EVERY 8 HOURS PRN, Starting on 10/26/23 at 1115, Until Kathy 10/29/23 at 1352, Anxiety, Routine Given 10/29/2023 9:28 AM EST 0.5 mg Given 10/29/2023 12:41 AM EST 0.5 mg Given 10/28/2023 3:09 PM EST 0.5 mg LORazepam (Ativan) tablet 0.5 mg 0.5 mg, Oral, 3 TIMES DAILY PRN, Starting on Kathy 10/29/23 at 1430, Until Thu11/09/23 at 1733, Anxiety, Routine Given 11/09/2023 9:35 AM EST 0.5 mg Given 11/08/2023 9:05 PM EST 0.5 mg Given 11/07/2023 8:58 PM EST 0.5 mg LORazepam (Ativan) tablet 1 mg 1 mg, Oral, EVERY 6 HOURS PRN, Starting on Thu10/25/23 at 1037, Until Thu10/26/23 at 1112, Anxiety, Routine Given 10/26/2023 4:26 AM EST 1 mg magnesium sulfate 2 g in sterile water 50 mL infusion 2 g, Intravenous, EVERY 2 HOURS PRN, Starting on Thu10/25/23 at 1154, Until Thu11/04/23 at 2220, Administer over 120 Minutes, Hypomagnesemia, Administer one 2 g IV bag, over 120 minutes for serum magnesium of 0.65 - 0.79 mMol/L. New Bag 10/31/2023 2:16 AM EST 2 g 25 mL/hr magnesium sulfate 2 g in sterile water 50 mL infusion 2 g, Intravenous, EVERY 2 HOURS PRN, Starting on Thu10/25/23 at 1154, Until Thu11/04/23 at 2220, Administer over 120 Minutes, Hypomagnesemia, Administer two 2 g IV bag, each over 120 minutes for serum magnesium of 0.5 - 0.64 mMol/L. New Bag 10/29/2023 3:19 PM EST 2 g 25 mL/hr New Bag 10/29/2023 9:43 AM EST 2 g 25 mL/hr Rate/Dose Verify 10/25/2023 8:00 PM EST 25 mL/h r magnesium sulfate 2 g in sterile water 50 mL infusion 2 g, Intravenous, ONCE, 1 dose, On Thu11/01/23 at 1445, Administer over 120 Minutes New Bag 11/01/2023 2:45 PM EST 2 g 25 mL/hr magnesium sulfate 2 g in sterile water 50 mL infusion 2 g, Intravenous, ONCE, 1 dose, On Thu11/04/23 at 2315, Administer over 120 Minutes New Bag 11/04/2023 11:51 PM EST 2 g 25 mL/hr melatonin tablet 6 mg 6 mg, Oral, NIGHTLY, First dose on Thu10/27/23 at 2100, Until Discontinued, Routine Given 11/08/2023 9:05 PM EST 6 mg Given 11/07/2023 8:59 PM EST 6 mg Given 11/06/2023 8:53 PM EST 6 mg mirabegron ER (Myrbetriq) tablet 25 mg 25 mg, Oral, DAILY, First dose on Thu10/25/23 at 1200, Until Discontinued, Do not crush, Routine, This product is restricted for continuation of outpatient regimen only. Is this a home medication? Yes Given 11/09/2023 9:35 AM EST 25 mg Given 11/08/2023 12:18 PM EST 25 mg Given 11/07/2023 9:21 AM EST 25 mg multivitamin with minerals (Thera M) tablet 1 tablet 1 tablet, Oral, DAILY, First dose on Thu10/26/23 at 1200, Until Discontinued, Routine Given 11/09/2023 9:35 AM EST 1 tablet Given 11/08/2023 12:18 PM EST 1 tablet Given 11/07/2023 9:15 AM EST 1 tablet NORepinephrine (Levophed) (16 mcg/mL) in dextrose 5% 250 mL infusion 0-100 mcg/min (0-375 mL/hr), Intravenous, CONTINUOUS, Starting on Thu10/25/23 at 0557, Until Thu10/26/23 at 1104, Titrate to keep MAP greater than 65 mmHg. Start at 7 mcg/min. Increase/decrease by 2 mcg/min every 3 minutes until goal reached. Do not exceed 200 mcg/min. Warning Vesicant/Irritant Medication, Routine Rate/Dose Verify 10/26/2023 2:00 AM EST 1 mcg/min 3.8 mL/hr Rate/Dose Verify 10/26/2023 12:00 AM EST 1 mcg/min 3.8 mL /hr Restarted 10/25/2023 11:02 PM EST 1 mcg/min 3.8 mL/hr NORepinephrine (Levophed) 4 mg/250 mL (16 mcg/mL) infusion 1 dose, Starting on Thu10/25/23 at 0554, Until Thu10/25/23 at 0559, Tari Sherman: cabinet override ondansetron (pf) (Zofran) (2 mg/mL) injection 4 mg 4 mg, Intravenous, EVERY 8 HOURS PRN, Starting on Kathy 11/05/23 at 1720, Until Thu11/09/23 at 1733, Nausea Given 11/05/2023 5:25 PM EST 4 mg ondansetron (Zofran) 4 mg/2 mL injection 1 dose, Starting on Thu11/05/23 at 1721, Until Kathy 11/05/23 at 1725, All Hernandez: cabinet override ondansetron ODT (Zofran-ODT) disintegrating tablet 4 mg 4 mg, Oral, EVERY 8 HOURS PRN, Starting on Thu10/27/23 at 2010, Until Kathy 10/29/23 at 0609, Nausea, Routine Given 10/27/2023 8:54 PM EST 4 mg pantoprazole (Protonix) injection 40 mg 40 mg, Intravenous, DAILY, First dose on Thu10/25/23 at 1100, Until Discontinued, Reconstitute with 10 mL of normal saline to a concentration of 4 mg/mL and inject slowly over 2 minutes. Given 10/28/2023 8:45 AM EST 40 mg Given 10/27/2023 8:54 AM EST 40 mg Given 10/26/2023 8:17 AM EST 40 mg pantoprazole EC (Protonix) tablet 40 mg 40 mg, Oral, DAILY, First dose on [place] 10/29/23 at 0900, Until Discontinued, DO NOT CRUSH OR OPEN, Routine Given 11/09/2023 9:35 AM EST 40 mg Given 11/08/2023 12:18 PM EST 40 mg Given 11/07/2023 9:15 AM EST 40 mg perflutren lipid microspheres (Definity) injection 0.5 mL 0.5 mL, Intravenous, ONCE PRN, 1 dose, Starting on Thu10/28/23 at 1548, Until Thu10/28/23 at 1430, Other, for enhancement of sub-optimal echo images, Echo Lab (Intra-Procedure), Routine Given 10/28/2023 2:30 PM EST 0.3 mLs piperacillin-tazobactam (Zosyn) 3.375 g vial attach to sodium chloride 0.9% 50 mL Mini-Bag Plus 3.375 g, Intravenous, EVERY 8 HOURS, 30 doses, First dose on Thu10/26/23 at 1200, Last dose on Kathy 11/05/23 at 0400, Administer over 4 Hours, Warning Vesicant/Irritant Medication Do not administer or Y-site with lactated ringers., Indication for (Active or Suspected): Urinary Tract/Pyelonephritis / E. faecalis + Pseudomonas aeruginosa New Bag 10/28/2023 3:31 AM EST 3.375 g 12.5 mL/hr New Bag 10/27/2023 8:09 PM EST 3.375 g 12.5 mL/hr New Bag 10/27/2023 12:51 PM EST 3.375 g 12.5 mL/hr piperacillin-tazobactam (Zosyn) 3.375 g vial attach to sodium chloride 0.9% 50 mL Mini-Bag Plus 3.375 g, Intravenous, EVERY 8 HOURS, First dose on 10/31/23 at 1230, Until Discontinued, Administer over 4 Hours, Warning Vesicant/Irritant Medication Do not administer or Y-site with lactated ringers., Indication for (Active or Suspected): Bacteremia/Sepsis New Bag 11/01/2023 4:23 AM EST 3.375 g 1 2.5 mL/hr New Bag 10/31/2023 8:14 PM EST 3.375 g 12.5 mL/hr New Bag 10/31/2023 1:00 PM EST 3.375 g 12.5 mL/hr piperacillin-tazobactam (Zosyn) 4.5 g vial attach to sodium chloride 0.9% 100 mL Mini-Bag Plus 4.5 g, Intravenous, EVERY 8 HOURS, 25 doses, First dose (after last modification) on Thu10/28/23 at 0800, Last dose on Thu11/05/23 at 0800, Administer over 4 Hours, Warning Vesicant/Irritant Medication Do not administer or Y-site with lactated ringers., Indication for (Active or Suspected): Urinary Tract/Pyelonephritis / E. faecalis + Pseudomonas aeruginosa New Bag 10/30/2023 4:22 PM EST 4.5 g 25 mL/hr New Bag 10/30/2023 8:44 AM EST 4.5 g 25 mL/hr New Bag 10/29/2023 11:10 PM EST 4.5 g 25 mL/hr piperacillin-tazobactam (Zosyn) 4.5 g vial attach to sodium chloride 0.9% 100 mL Mini-Bag Plus 4.5 g, Intravenous, EVERY 8 HOURS, First dose (after last modification) on Thu11/01/23 at 1230, Until Discontinued, Administer over 4 Hours, Warning Vesicant/Irritant Medication Do not administer or Y-site with lactated ringers., Indication for (Active or Suspected): Bacteremia/Sepsis New Bag 11/05/2023 12:50 PM EST 4.5 g 25 mL/hr New Bag 11/05/2023 4:17 AM EST 4.5 g 25 mL/hr New Bag 11/04/2023 7:49 PM EST 4.5 g 25 mL/hr piperacillin-tazobactam (Zosyn) 4.5 g vial attach to sodium chloride 0.9% 100 mL Mini-Bag Plus 4.5 g, Intravenous, EVERY 8 HOURS, 10 doses, First dose (after last modification) on Thu11/05/23 at 2000, Last dose on Thu11/08/23 at 2000, Administer over 4 Hours, Warning Vesicant/Irritant Medication Do not administer or Y-site with lactated ringers., Indication for (Active or Suspected): Bacteremia/Sepsis New Bag 11/08/2023 7:55 PM EST 4.5 g 25 mL/hr New Bag 11/08/2023 12:20 PM EST 4.5 g 25 mL/hr New Bag 11/08/2023 3:41 AM EST 4.5 g 25 mL/hr potassium chloride ER (Klor-Con M) crystal tablet 40 mEq 40 mEq, Oral, EVERY 4 HOURS PRN, Starting on Thu10/26/23 at 1105, Until Thu11/04/23 at 2220, hypokalemia, Administer for serum potassium (mMol/L) of 3.6 - 3.8 potassium chloride ER particle/crystal tablets (Klor-Con M) may be broken in half and each half swallowed separately. Tablets can be dissolved in ~4 ounces of water; allow ~2 minutes to dissolve, stir well and drink immediately. Do not crush, chew, or suck on tablet., Routine Given 10/29/2023 6:24 AM EST 40 mEq Given 10/28/2023 3:21 PM EST 40 mEq potassium chloride ER (Klor-Con M) crystal tablet 40 mEq 40 mEq, Oral, ONCE, 1 dose, On Thu11/09/23 at 0715, May dissolve if unable to swallow ER tablet. potassium chloride ER particle/crystal tablets (Klor-Con M) may be broken in half and each half swallowed separately. Tablets can be dissolved in ~4 ounces of water; allow ~2 minutes to dissolve, stir well and drink immediately. Do not crush, chew, or suck on tablet., Routine Given 11/09/2023 6:25 AM EST 40 mEq potassium phosphate 10 mMol in sodium chloride 0.9% 100 mL infusion 10 mmol, Intravenous, EVERY 4 HOURS, 2 doses, First dose on Thu10/30/23 at 0315, Last dose on Thu10/30/23 at 0715, Administer over 4 Hours, Administer one 10 mmol bag, over 4 hours for serum phosphate 2-2.4 mg/dL. New Bag 10/30/2023 6:47 AM EST 10 mmol 25 mL/hr New Bag 10/30/2023 2:41 AM EST 10 mmol 25 mL/hr potassium, sodium phosphates (Neutra-Phos) 280-160-250 mg oral packet 1.5 g 1.5 g, Oral, 3 TIMES DAILY, 3 doses, First dose on Thu10/30/23 at 1500, Last dose on Thu10/31/23 at 0900, Reconstitute each packet in 75 mL of water. Give with full glass of water (240 mL)., Routine Given 10/31/2023 9:23 AM EST 1.5 g Given 10/30/2023 8:20 PM EST 1.5 g Given 10/30/2023 2:34 PM EST 1.5 g potassium, sodium phosphates (Neutra-Phos) 280-160-250 mg oral packet 3 g 3 g, Per NG tube, EVERY 4 HOURS, 2 doses, First dose (after last modification) on Thu10/26/23 at 0300, Last dose on Thu10/26/23 at 0700, Take with full glass of water, Routine Given 10/26/2023 6:53 AM EST 3 g Given 10/26/2023 2:18 AM EST 3 g pregabalin (Lyrica) capsule 25 mg 25 mg, Oral, 3 TIMES DAILY, First dose on 10/25/23 at 1130, Until Discontinued, Routine Given 11/09/2023 2:3 5 PM EST 25 mg Given 11/09/2023 9:35 AM EST 25 mg Given 11/08/2023 9:06 PM EST 25 mg senna (Senokot) tablet 34.4 mg 34.4 mg, Oral, NIGHTLY, First dose on 10/25/23 at 2100, Until Discontinued, Routine Given 11/08/2023 9:05 PM EST 34.4 mg Given 11/07/2023 9:01 PM EST 34.4 mg Given 11/06/2023 8:53 PM EST 34.4 mg sodium chloride (NebuSal) 3 % nebulizer solution 15 mL 15 mL, Nebulization, EVERY 4 HOURS PRN, Starting on 11/01/23 at 1522, Until Thu11/03/23 at 1038, Cough, Routine Given 11/02/2023 5:38 AM EST 15 mLs Given 11/01/2023 7:30 PM EST 4 mLs Given 11/01/2023 3:48 PM EST 15 mLs sodium chloride (Pulmosal) 7 % nebulizer solution Nebulization, 2 TIMES DAILY, First dose on Thu11/02/23 at 1015, Until Discontinued Given 11/09/2023 9:35 AM EST 4 mLs Given 11/08/2023 7:54 PM EST 4 mLs Given 11/08/2023 12:22 PM EST 4 mLs sodium chloride 0.9 % (flush) (BD PosiFlush Normal Saline 0.9) flush 10 mL 10 mL, Intravenous, DAILY PRN, Starting on Thu10/25/23 at 1528, Until Thu11/09/23 at 1733, For use when accessing Implantable Port, Routine sodium chloride 0.9 % (flush) (BD PosiFlush Normal Saline 0.9) flush 5 mL 5 mL, Intravenous, 2 TIMES DAILY, First dose on Thu10/25/23 at 1100, Until Discontinued, Routine Given 11/09/2023 9:36 AM EST 5 mLs Given 11/08/2023 9:06 PM EST 5 mLs Given 11/08/2023 12:19 PM EST 5 mLs sodium phosphate 15 mMol in sodium chloride 0.9% 150 mL infusion 15 mmol, Intravenous, ONCE, 1 dose, On Thu11/02/23 at 0645, Administer over 4 Hours, Administer over 4-6 hours New Bag 11/02/2023 6:47 AM EST 15 mmol 37.5 mL/hr tamsulosin (Flomax) capsule 0.4 mg 0.4 mg, Oral, DAILY, First dose on Thu10/26/23 at 1215, Until Discontinued, DO NOT CRUSH OR CHEW, Routine Given 11/09/2023 9:35 AM EST 0.4 mg Given 11/08/2023 12:18 PM EST 0.4 mg Given 11/07/2023 9:16 AM EST 0.4 mg traZODone (Desyrel) tablet 50 mg 50 mg, Oral, NIGHTLY, First dose on Thu10/25/23 at 2100, Until Discontinued, Routine Given 11/08/2023 9:0 6 PM EST 50 mg Given 11/07/2023 9:00 PM EST 50 mg Given 11/06/2023 8:53 PM EST 50 mg valproate (Depacon) 250 mg in sodium chloride 0.9% 52.5 mL infusion 250 mg, Intravenous, EVERY 6 HOURS SCHEDULED, First dose on Thu10/25/23 at 2030, Until Discontinued, Administer over 60 Minutes New Bag 10/26/2023 9:42 AM EST 250 mg 52.5 mL/hr New Bag 10/26/2023 1:00 AM EST 250 mg 52.5 mL/hr New 10/25/2023 8:54 PM EST 250 mg 52.5 mL/hr vancomycin (Vancocin) 1 gram in sodium chloride 0.9% 250 mL infusion 1 g, Intravenous, at 250 mL/hr, EVERY 12 HOURS, First dose on Thu10/28/23 at 2100, Until Discontinued, Maximum infusion rate is 1 gram/hour. If flushing of the face, neck, upper body, arms, and/or back occurs decrease infusion rate by 50% to reduce the severity of symptoms. This medication may have an associated drug lab level. Please see MAR for scheduled level. Warning Vesicant/Irritant Medication , Routine, Indication for (Active or Suspected): Other (See comment) 10/29/2023 9:31 AM EST 1 g 250 mL/hr New 10/28/2023 8:25 PM EST 1 g 250 mL/hr vancomycin (Vancocin) 2 gram in sodium chloride 0.9% 500 mL infusion 2 g, Intravenous, at 250 mL/hr, ONCE, 1 dose, On Thu10/28/23 at 0930, Maximum infusion rate is 1 gram/hour. If flushing of the face, neck, upper body, arms, and/or back occurs decrease infusion rate by 50% to reduce the severity of symptoms. This medication may have an associated drug lab level. Please see MAR for scheduled level. Warning Vesicant/Irritant Medication , Routine, Indication for (Active or Suspected): Other (See comment) 10/28/2023 8:52 AM EST 2 g 250 mL/hr documented in this encounter Active and Recently Administered Medications Times are shown in EST. Scheduled Medication Order 11/07/2023 11/08/2023 11/09/2023 baclofen (Lioresal) tablet 20 mg 20 mg, Oral, 3 TIMES DAILY, First dose on Thu10/25/23 at 1130, Until Discontinued, Routine 0915 (Given - Provider: Margarita Loomis RN)1539 (Given - Provider: Presley Moe LPN)2100 (Given - Provider: All Quintero, RN) 1219 (Given - Provider: Margarita Loomis RN)1625 (Given - Provider: Margarita Loomis RN)2106 (Given - Provider: Lauri Camarillo RN) 0935 (Given - Provider: Margarita Loomis RN)1435 (Given - Provider: Twin Galindo, SWETHA) divalproex ER (Depakote ER) tablet 500 mg 500 mg, Oral, DAILY, First dose on Thu10/26/23 at 1200, Until Discontinued, DO NOT SPLIT, CRUSH OR OPEN, Routine 0921 (Given - Provider: Margarita Loomis RN) 1220 (Given - Provider: Margarita Loomis RN) 0935 (Given - Provider: Margarita Loomis RN) docusate sodium (Colace) capsule 100 mg 100 mg, Oral, 3 TIMES DAILY, First dose on Thu10/25/23 at 1245, Until Discontinued, Routine 0537 (Given - Provider: Luz Walker RN)1223 (Given - Provider: Margarita Loomis RN)1539 (Given - Provider: Presley Moe LPN) 0600 (Not Given - Provider: Lauri Camarillo RN - Reason: Patient/family refused)1220 (Given - Provider: Margarita Loomis RN)1625 (Given - Provider: Margarita Loomis RN) 0600 (Not Given - Provider: aLuri Camarillo RN - Reason: Patient/family refused)1200 (Given - Provider: Margarita Loomis RN) heparin (porcine) (5,000 units/1 mL) subcutaneous injection 5,000 Units 5,000 Units, Subcutaneous, EVERY 8 HOURS SCHEDULED, First dose on Thu10/25/23 at 1400, Until Discontinued, Routine 0537 (Given - Provider: Luz Walker RN)1539 (Given - Provider: Presley Moe LPN)2117 (Given - Provider: All Quintero, SWETHA) 0600 (Not Given - Provider: Lauri Camarillo RN - Reason: Patient/family refused)1625 (Given - Provider: Margarita Loomis RN)2106 (Given - Provider: Lauri Camarillo RN) 0600 (Not Given - Provider: Lauri Camarillo RN - Reason: Patient/family refused)1435 (Given - Provider: Twin Galindo RN) ipratropium-albuteroL (Duoneb) 0.5 mg-3 mg(2.5 mg base)/3 mL nebulizer solution 3 mL 3 mL, Nebulization, EVERY 4 HOURS, First dose on Thu10/28/23 at 0400, Until Discontinued, Routine 0304 (Given - Provider: Luz Walker RN)0916 (Given - Provider: Margarita Loomis RN)1222 (Given - Provider: Margarita Loomis RN)1600 (Not Given - Provider: Margarita Loomis RN - Reason: Patient/family refused)210 (Given - Provider: All Quintero RN) 0000 (Not Given - Provider: Lauri Camarillo RN - Reason: Patient/family refused)0400 (Not Given - Provider: Lauri Camarillo RN - Reason: Patient/family refused)1200 (Not Given - Provider: Margarita Loomis RN - Reason: See comment - Comment: last one given late)1221 (Given - Provider: Margarita Loomis RN)1625 (Given - Provider: Margarita Loomis RN)1954 (Given - Provider: Lauri Camarillo RN) 0000 (Not Given - Provider: Lauri Camarillo RN - Reason: Patient/family refused)0400 (Not Given - Provider: Lauri Camarillo RN - Reason: Patient/family refused)0935 (Given - Provider: Margarita Loomis RN)1200 (Not Given - Provider: Margarita Loomis RN - Reason: Patient/family refused) melatonin tablet 6 mg 6 mg, Oral, NIGHTLY, First dose on Thu10/27/23 at 2100, Until Discontinued, Routine 2058 (Given - Provider: All Quintero, SWETHA) 210 (Given - Provider: Lauri Camarillo RN) mirabegron ER (Myrbetriq) tablet 25 mg 25 mg, Oral, DAILY, First dose on Thu10/25/23 at 1200, Until Discontinued, Do not crush, Routine, This product is restricted for continuation of outpatient regimen only. Is this a home medication? Yes 0921 (Given - Provider: Margarita Loomis RN) 1218 (Given - Provider: Margarita Loomis RN) 0935 (Given - Provider: Margarita Loomis RN) multivitamin with minerals (Thera M) tablet 1 tablet 1 tablet, Oral, DAILY, First dose on 10/26/23 at 1200, Until Discontinued, Routine 0915 (Given - Provider: Margarita Loomis RN) 1218 (Given - Provider: Margarita Loomis RN) 0935 (Given - Provider: Margarita Loomis RN) pantoprazole EC (Protonix) tablet 40 mg 40 mg, Oral, DAILY, First dose on Kathy 10/29/23 at 0900, Until Discontinued, DO NOT CRUSH OR OPEN, Routine 0915 (Given - Provider: Margarita Loomis RN) 1218 (Given - Provider: Margarita Loomis RN) 0935 (Given - Provider: Margarita Loomis RN) piperacillin-tazobactam (Zosyn) 4.5 g vial attach to sodium chloride 0.9% 100 mL Mini-Bag Plus (COMPLETED) 4.5 g, Intravenous, EVERY 8 HOURS, 10 doses, First dose (after last modification) on Kathy 11/05/23 at 1999, Last dose on [place] 11/08/23 at 1999, Administer over 4 Hours, Warning Vesicant/Irritant Medication Do not administer or Y-site with lactated ringers., Indication for (Active or Suspected): Bacteremia/Sepsis 0052 (Stopped - Provider: Luz Walker RN)0304 (New Bag - Provider: Luz Walker RN)0704 (Stopped - Provider: Margarita Loomis RN)1222 (New Bag - Provider: Margarita Loomis RN)1622 (Stopped - Provider: Margarita Loomis RN)2110 (New Bag - Provider: All Quintero RN) 0110 (Stopped - Provider: Lauri Camarillo RN)0341 (New Bag - Provider: Lauri Camarillo RN)0741 (Stopped - Provider: Margarita S Loomis, RN)1220 (New Bag - Provider: Margarita Loomis RN)1620 (Stopped - Provider: Margarita Loomis RN)195 (New Bag - Provider: Lauri Camarillo RN)2355 (Stopped - Provider: Lauri Camarillo RN) potassium chloride ER (Klor-Con M) crystal tablet 40 mEq (COMPLETED) 40 mEq, Oral, ONCE, 1 dose, On Thu11/09/23 at 0715, May dissolve if unable to swallow ER tablet. potassium chloride ER particle/crystal tablets (Klor-Con M) may be broken in half and each half swallowed separately. Tablets can be dissolved in ~4 ounces of water; allow ~2 minutes to dissolve, stir well and drink immediately. Do not crush, chew, or suck on tablet., Routine 0625 (Given - Provider: Lauri Camarillo RN) pregabalin (Lyrica) capsule 25 mg 25 mg, Oral, 3 TIMES DAILY, First dose on 10/25/23 at 1130, Until Discontinued, Routine 0915 (Given - Provider: Margarita Loomis RN)1539 (Given - Provider: Presley Moe LPN)2100 (Given - Provider: All Quintero RN) 1218 (Given - Provider: Margarita Loomis RN)1625 (Given - Provider: Margarita Loomis RN)210 (Given - Provider: Lauri Camarillo RN) 0935 (Given - Provider: Margarita Loomis RN)1435 (Given - Provider: Twin Galindo RN) senna (Senokot) tablet 34.4 mg 34.4 mg, Oral, NIGHTLY, First dose on 10/25/23 at 2100, Until Discontinued, Routine 2100 (Given - Provider: All Quintero RN) 210 (Given - Provider: Lauri Camarillo RN) sodium chloride (Pulmosal) 7 % nebulizer solution Nebulization, 2 TIMES DAILY, First dose on Thu11/02/23 at 1015, Until Discontinued 0916 (Given - Provider: Margarita Loomis RN)210 (Given - Provider: All Quintero RN) 1222 (Given - Provider: Margarita Loomis RN)195 (Given - Provider: Lauri Camarillo RN) 0935 (Given - Provider: Margarita Loomis RN) sodium chloride 0.9 % (flush) (BD PosiFlush Normal Saline 0.9) flush 5 mL 5 mL, Intravenous, 2 TIMES DAILY, First dose on 10/25/23 at 1100, Until Discontinued, Routine 0916 (Given - Provider: Margarita Loomis RN)2100 (Not Given - Provider: All Quintero RN - Reason: See comment - Comment: infusing) 1219 (Given - Provider: Margarita Loomis RN)210 (Given - Provider: Lauri Camarillo RN) 0936 (Given - Provider: Margarita Loomis RN) tamsulosin (Flomax) capsule 0.4 mg 0.4 mg, Oral, DAILY, First dose on Thu10/26/23 at 1215, Until Discontinued, DO NOT CRUSH OR CHEW, Routine 0916 (Given - Provider: Margarita Loomis RN) 1218 (Given - Provider: Margarita Loomis RN) 0935 (Given - Provider: Margarita Loomis RN) traZODone (Desyrel) tablet 50 mg 50 mg, Oral, NIGHTLY, First dose on 10/25/23 at 2100, Until Discontinued, Routine 2100 (Given - Provider: All Quintero RN) 2105 (Given - Provider: Lauri Camarillo RN) PRN Medication Order 11/07/2023 11/08/2023 11/09/2023 acetaminophen (Tylenol) tablet 650 mg 650 mg, Oral, EVERY 8 HOURS PRN, Starting on Thu10/26/23 at 2007, Until Thu11/09/23 at 1733, Pain, Fever, Maximum dose of acetaminophen is 4,000 mg from all sources in 24 hours. When ordered for pain, acetaminophen should be given even when other ordered pain medications are indicated., Routine 0634 (Given - Provider: Lauri Camarillo RN) guaiFENesin (Robitussin) (20 mg/mL) oral liquid 200 mg 200 mg, Oral, EVERY 4 HOURS PRN, Starting on Thu10/28/23 at 0320, Until Thu11/09/23 at 1733, Cough, Maximum daily dose is 2400 mg, Routine hydrOXYzine (Atarax) tablet 25 mg 25 mg, Oral, 3 TIMES DAILY PRN, Starting on Thu10/25/23 at 1152, Until Thu11/09/23 at 1733, Itching, Routine 1218 (Given - Provider: Margarita Loomis, SWETHA) iohexoL (Omnipaque) (350 mg/mL) solution 0-200 mL 0-200 mL, Intravenous, ONCE PRN, 1 dose, Starting on Thu10/30/23 at 0946, Until Thu11/09/23 at 1733, Per Protocol, Warning Vesicant/Irritant Medication , Radiology Contrast, Routine ipratropium-albuteroL (Duoneb) 0.5 mg-3 mg(2.5 mg base)/3 mL nebulizer solution 3 mL 3 mL, Nebulization, EVERY 4 HOURS PRN, Starting on Thu10/29/23 at 1119, Until Thu11/09/23 at 1733, Wheezing, for breakthrough SOB not adequately treated by scheduled duonebs, Routine 1218 (Given - Provider: Margarita Loomis RN) lidocaine (Xylocaine) 1% (10 mg/mL) injection 3 mg 3 mg (0.3 mL), Subcutaneous, ONCE PRN, 1 dose, Starting on Thu10/25/23 at 1003, Until Thu11/09/23 at 1733, for discomfort with PIV insertion, Routine LORazepam (Ativan) tablet 0.5 mg 0.5 mg, Oral, 3 TIMES DAILY PRN, Starting on Thu10/29/23 at 1430, Until Thu11/09/23 at 1733, Anxiety, Routine 1538 (Given - Provider: Presley Moe LPN)2057 (Given - Provider: All Quintero, SWETHA) 210 (Given - Provider: Lauri Camarillo RN) 0935 (Given - Provider: Margarita Loomis, SWETHA) ondansetron (pf) (Zofran) (2 mg/mL) injection 4 mg 4 mg, Intravenous, EVERY 8 HOURS PRN, Starting on Thu11/05/23 at 1720, Until Thu11/09/23 at 1733, Nausea sodium chloride 0.9 % (flush) (BD PosiFlush Normal Saline 0.9) flush 10 mL 10 mL, Intravenous, DAILY PRN, Starting on Thu23 at 1528, Until 11/09/23 at 1733, For use when accessing Implantable Port, Routine sodium chloride 0.9 % (flush) (BD PosiFlush Normal Saline 0.9) flush 5-20 mL 5-20 mL, Intravenous, EVERY 1 MIN PRN, Starting on 10/25/23 at 1003, Until 11/09/23 at 1733, flush, Flush pertains to all indwelling lines. Flush per protocol found in the job aid using the link provided on this medication record., Routine documented in this encounter Care Teams Welder Repair Relationship Specialty Start Date End Date Genevieve Baez MD [address] [place] [address] PCP - General Family Medicine 07/22/23 documented as of this encounter
--- OUTSIDE RECORDS SUMMARY | 2024-07-22 15:04 | XMS_ITS | Encounter Summary ---
[place] [address] Care Team Providers Care Slip Cover Seamstress Name Role Phone Iain Olson MD Primary Care Provid er Encounter Details Date Type Department Care Team (Late st Contact Info) Description 01/14/2022 Telephone [place] [id number] Angie Peña Social History Tobacco Use Types Packs/Day Years Used Date Smoking Tobacco: Former Smokeless Tobacco: Never Alcohol Use Standard Drinks/Week Comments Yes 21 (1 standard drink = 0.6 oz pu re alcohol) Sex and Gender Information Value Date Recorded Sex Assigned at Not on file Gender Identity Not on file Sexual Orientation Not on file documented as of this encounter Plan of Treatment Not on file documented as of this encounter Visit Diagnoses Not on filedocumented in this encounter Care Teams Slip Cover Seamstress Relationship Specialty Start Date End Date Iain Olson MD [address] [place] [address] PCP - [facility] Medicine 09/04/21 02/18/22 documented as of this encounter
--- OUTSIDE RECORDS SUMMARY | 2024-07-22 15:04 | XMS_ITS | Encounter Summary ---
[place] [address] Care Team Providers Care Mapping Editor Name Role Phone Lauri Dallas MD Primary Care Provider [phone] Encounter Details Date Type Department Care Team (Late st Contact Info) Description 04/30/2022 1:45 PM EDT Office [place] [id number] Malgorzata Whitfield APRN [facility] [place] [address] S/P C4-T2 PSIF for C6-7 bilateral facet dislocation 10/27/20 Dr. Tong; Pressure injury of left buttock, stage 4; Quadriplegia Social History Tobacco Use Types Packs/Day Years [...] Sign Reading Time Taken Comments Blood Pressure 157/103 04/30/2022 2:10 PM EDT Pulse 69 04/30/2022 2:10 PM EDT Temperature 35.8 ??C (96.5 ??F) 04/30/2022 2:10 PM ED T Respiratory Rate 16 04/30/2022 2:10 PM EDT Oxygen Saturation 99% 04/30/2022 2:10 PM EDT Inhaled Oxygen Concentration - - Weight - - Height - - Body Mass Index - - documented in this encounter Patient Instructions * Patient Instructions* Malgorzata Whitfield APRN - 04/30/2022 2:54 PM EDT New wound treatment plan Left ischial ulcer -Change dressing every 2 days or sooner for 50% or greater strike through drainage. Remove old dressing. Cleanse wound with wound cleanser or normal saline and gauze. Apply skin prep to periwound skin (skin around the wound). Apply Promogran Rosa directly into wound bed. May moisten with a few drops of normal saline to activate if the wound is not draining. Cover wound bed with an Optilock dressing and secure with tape Monitor for signs of infection which may include: Fever Sweats Chills Nausea, Vomiting or Diarrhea Unexplained increase in Blood Glucose levels At or around the wound site: Increased pain Swelling or edema Redness Warmth Purulent drainage (thick yellow/green drainage) Malodor Contact the [facility] with any above symptoms Thursday- Thursday 8:00AM-4:30PM ([phone]). If weekends / holidays / evenings, please report to the Emergency Department. Will reorder the James Protein powder in a drink of your choice - including the powerade. Protein powder into foods you are already eating Find equivalent to a candy bar which has some nutritional content such as protein bar documented in this encounter Progress Notes * Malgorzata Whitfield APRN - 04/30/2022 1:45 PM EDT Images from the original note were not included. [facility] Progress Note Chief Complaint: Bruce Velasquez Jr. is a 56 y.o. male is being seen in follow up of pressure ulcer to left ischium with concerns regarding increased drainage. HPI: Bruce Velasquez Jr. is a 56 y.o. male with a hx significant for quadriplegia after accident in October, with s/p C4-T2 spinal fusion for C6-7 bilateral facet dislocation, stage 4 pressure ulcer, DVT, s/p colostomy and HTN. He was hospitalized from 07/06/21-08/02/21 at [facility] with chronic recurrent multifocal osteomyelitis for which he has been treated multipl e times with ciprofloxacin, vancomycin and zosyn. He was discharged home for two weeks of oral augmentin and bactrim to complete a four-week course. Readmitted to [facility] on 09/01/21and discharged home December 2021. Patient is now at home with home health care. December 2020-Pressure mapped at [facility] in [place]. Gel cushion in wheelchair Home Health Agency: [facility] Pertinent labs/tests: No recent labwork or imaging in [facility] MRI done at [facility] of left ischial area on 03/07/22 ROS: Negative for constitutional symptoms Appetite: fair, has nepali for breakfast, couple of candy bars during the day and then a good supper Pain: no, paraplegic FBS: na PE: Vital Signs:BP (!) 157/103 (BP Location (NBP): Left arm, Patient Position: Sitting, BP Cuff Sizes: Adult (25-34 cm)) Pulse 69 Temp 35.8 ??C (96.5 ??F) (Temporal) Resp 16 SpO2 99% Pleasant, 57 y.o., in NAD. Arrives accompanied by Cary, home care provider Mobility: dependent, motorized chair Edema: no Wound Location 04/30/22 03/10/22 10/17/21 Measurements 09/19/21 Wound bed Exudate Yudy wound skin Left ischium 3 x 1.3 x 0.7 cm UM 1 cm @ 12 0.5 cm @ 3 0.5 cm @ 6 0.3 cm @ 9 3.0cm L x 1.7cm W x 0.6cm D UM @ 12- 1.0CM @ 3- 0.5CM @ 6- 0 @ 9-1.0CM No palpable bone 2 x 1.2 x 0.5cm 1.2 x 4 x 0.8 cm Full thickness 90% pink, moist with granulation 10% epithelial along edges with epibole Moderate serous [place], no increased warmth The following photo was taken: Left ischium today 04/30/22 Left ischium at last visit, 03/10/22 Treatment: Cleansed wound with normal saline and gauze. Wound cleansed with VASHE wound cleanser Removed devitalized tissue, slough with curette down to and including subcutaneous tissue < 20 sq cm. Bleeding: small Dsg: applied Promogran rosa, secondary dressing of optilock and tape Assessment/Plan: Bruce Velasquez Jr. is a 57 y.o. 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 No signs of infection. There is rolling of the wound edge along the medial border with some hypergranulation tissue along the edge. There is no palpable bone in the wound bed at this time. Discussed continuing with the use of the promogran rosa with change of the secondary dressing chetan optilock due to concern of increased drainage. Discussed with patient the importance of increasing his protein intake and the nutrient deficiencies with his current dietary intake. Recommended useof protein drinks if he is not interested in eating, they stated that an order for James was placedat his visit in March but they had not received it (no call had been received by the clinic regardingthis). They are currently using the [facility] out of the [facility],phone number is . Will follow up on the order for these supplements. Discussed with patient that there is discoloration in the center of the wound bed indicating increased pressure in that area, he states that he spends most of his time lying on his back in his bed, that he has an alternating air mattress. Reviewed the need to off load even with an alternating air mattress, suggested lying on his sides or placing a pillow under his thigh to off load the ischium. Call placed to [facility], they stated that this product was not covered by his insurance and had been discussed in length with his home care provider, Cary Follow up: monthly at patient request Wound care instructions: New wound treatment plan Left ischial ulcer -Change dressing every 2 days or sooner for 50% or greater strike through drainage. 1. Remove old dressing. 2. Cleanse wound with wound cleanser or normal saline and gauze. 3. Apply skin prep to periwound skin (skin around the wound). 4. Apply Promogran Rosa directly into wound bed. May moisten with a few drops of normal saline toactivate if the wound is not draining. 5. Cover wound bed with an Optilock dressing and secure with tape Monitor for signs of infection which may include: Fever Sweats Chills Nausea, Vomiting or Diarrhea Unexplained increase in Blood Glucose levels At or around the wound site: Increased pain Swelling or edema Redness Warmth Purulent drainage (thick yellow/green drainage) Malodor [facility] with any above symptoms Thursday- Thursday 8:00AM-4:30PM ([phone]). If weekends / holidays / evenings, please report to the Emergency Department. Will reorder the James Protein powder in a drink of your choice - including the powerade. Protein powder into foods you are already eating Find equivalent to a candy bar which has some nutritional content such as protein bar documented in this encounter Plan of Treatment Not on file documented as of this encounter Visit Diagnoses Diagnosis S/P C4-T2 PSIF for C6-7 bilateral facet dislocation 10/27/20 Dr. Tong Arthrodesis status Pressure injury of left buttock, stage 4 Quadriplegia Quadriplegia, unspecified documented in this encounter Care Teams Mapping Editor Relationship Specialty Start Date End Date Lauri Dallas MD PCP - General Family Medicine 02/19/22 07/21/23 documented as of this encounter
--- OUTSIDE RECORDS SUMMARY | 2024-07-22 15:04 | XMS_ITS | Encounter Summary ---
[place] [address] Care Team Providers Care Supervisor Meter [employer] Name Role Phone Genevieve Baez MD Primary Care Provider Encounter Details Date Type Department Care Team (Late st Contact Info) Description 10/24/2023 Interpretation Only [facility] [address] [place] [address] Shoaib Barr MD [address] [place] [address] Social History Tobacco Use Types Packs/Day Years Used Date Smoking Tobacco: Never Assessed Sex and Gender Information Value Date Recorded Sex Assigned at Not on file Gender Identity Not on file Sexual Orientation Not on file documented as of this encounter Plan of Treatment Not on file documented as of this encounter Procedures Procedure Name Priority Date/Time Associated Diagnosis Comments CT CHEST W CONTRAST STAT 10/24/2023 8 :44 PM EST documented in this encounter Results * CT Chest w Contrast (10/24/2023 8:44 PM EST) PT CLASS E DH RAD ADMITDTTM [id number] DH RAD PT RAD INFO [id number]^Cortney^ Shoaib RAD EXAM DESC CTCHW^CT Chest w/ Contrast^RIS RAD Anatomical Region Laterality Modality Chest Computed Tomogra phy 10/24/2023 8:44 PM EST Impressions 10/24/2023 9:02 PM EST Mild limitation by motion artifact. No acute finding. Thank you for letting us participate in the care of this patient. ??If you are a health care provider and have any questions regarding this report, please contact the number below. ??For patients who have questions please contact the health pet care associate that requested your imaging first. ? Narrative 10/24/2023 9:02 PM EST EXAMINATION: CT Chest w/ Contrast CLINICAL HISTORY: sepsis, ams, unknown source TECHNIQUE: Helical CT of the chest after the intravenous administration of 99cc of Omnipaque 350. Thin-section reconstructions as well as coronal and sagittal reformatted images were generated. COMPARISON: None FINDINGS: Motion artifact limits evaluation. Minimal left lower lobe atelectasis. Lung parenchyma is otherwise normal. Airways are normal. No pleural collection. Chest wall is unremarkable. Review of bone windows is unremarkable. Procedure Note Zay Tapia MD - 10/24/2023 EXAMINATION: CT Chest w/ Contrast CLINICAL HISTORY: sepsis, ams, unknown source TECHNIQUE: Helical CT of the chest after the intravenous administration of99cc of Omnipaque 350. Thin-section reconstructions as well as coronal andsagittal reformatted images were generated. COMPARISON: None FINDINGS: Motion artifact limits evaluation. Minimal left lower lobe atelectasis. Lung parenchyma is otherwisenormal. Airways are normal. No pleural collection. Chest wall is unremarkable. Review of bone windows is unremarkable. IMPRESSION Mild limitation by motion artifact. No acute finding. Thank you for letting us participate in the care of this patient. If youare a health care provider and have any questions regarding this report,please contact the number below. For patients who have questions please contactthe health pet care associate that requested your imaging first. Shoaib Barr MD IMG CT ORDERABLES documented in this encounter Visit Diagnoses Not on filedocumented in this encounter Care Teams Supervisor Meter Repair Shop Relationship Specialty Start Date End Date Genevieve Baez MD [address] [place] [address] PCP - General Family Medicine 07/22/23 documented as of this encounter
--- OUTSIDE RECORDS SUMMARY | 2024-07-22 15:04 | XMS_ITS | Encounter Summary ---
[place] [address] Care Team Providers Care Forensic Technician Name Role Phone Genevieve Baez MD Primary Care Provider [phone] Encounter Details Date Type Department Care Team (Late st Contact Info) Description 10/24/2023 Interpretation Only [facility] [address] [place] [address] Shoaib Barr MD [address] [place] [address] Social History Tobacco Use Types [...] Priority Date/Time Associated Diagnosis Comments CT HEAD WO CONTRAST (GENERIC) STAT 10/24/2023 7:18 PM EST documented in this encounter Results * CT Head wo Contrast (Generic) (10/24/2023 7:18 PM EST) PT CLASS E DH RAD ADMITDTTM [id number] DH RAD PT RAD INFO [id number]^Cortney^ Shoaib RAD EXAM DESC CTHEAD^CT Head w/o Contrast^RIS RAD Anatomical Region Laterality Modality Head Computed Tomogra phy 10/24/2023 7:18 PM EST Impressions 10/24/2023 8:53 PM EST No acute hemorrhage or mass effect. Thank you for letting us participate in the care of this patient. ??If you are a health care provider and have any questions regarding this report, please contact the number below. ??For patients who have questions please contact the health senior caregiver that requested your imaging first. ? Narrative 10/24/2023 8:53 PM EST EXAMINATION: CT Head w/o Contrast CLINICAL HISTORY: AMS TECHNIQUE: CT head performed without intravenous contrast administration. COMPARISON: None FINDINGS: No acute hemorrhage, mass, mass effect. Parenchymal attenuation is normal. Ventricles and extra axial spaces are normal. The calvarium and extracalvarial soft tissues are unremarkable. Procedure Note Zay Tapia MD - 10/24/2023 EXAMINATION: CT Head w/o Contrast CLINICAL HISTORY: AMS TECHNIQUE: CT head performed without intravenous contrast administration. COMPARISON: None FINDINGS: No acute hemorrhage, mass, mass effect. Parenchymal attenuation isnormal. Ventricles and extra axial spaces are normal. The calvarium and extracalvarial soft tissues are unremarkable. IMPRESSION No acute hemorrhage or mass effect. Thank you for letting us participate in the care of this patient. If youare a health care provider and have any questions regarding this report,please contact the number below. For patients who have questions please contactthe health senior caregiver that requested your imaging first. Shoaib Barr MD IMG CT ORDERABLES documented in this encounter Visit Diagnoses Not on filedocumented in this encounter Care Teams Forensic Technician Relationship Specialty Start Date End Date Genevieve Baez MD [address] [place] [address] PCP - General Family Medicine 07/22/23 documented as of this encounter
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
--- OUTSIDE RECORDS SUMMARY | 2024-07-22 15:04 | XMS_ITS | Encounter Summary ---
[place] [address] Care Team Providers Care Silver Brazer Name Role Phone Iain Olson MD Primary Care Provid er Encounter Details Date Type Department Care Team (Late st Contact Info) Description 01/08/2022 Telephone [place] [id number] Amelia Rm LPN Social History Tobacco Use Types Packs/Day Years [...] encounter Miscellaneous Notes * Telephone Encounter - Amelia Rm LPN - 01/08/2022 9:02 AM EST Left message on voicemail asking patient if he would like to schedule follow up with the [facility]. Lastappointment was in Oct with request to follow up monthly. Amelia Rm LPN documented in this encounter Plan of Treatment Not on file documented as of this encounter Visit Diagnoses Not on filedocumented in this encounter Care Teams Silver Brazer Relationship Specialty Start Date End Date Iain Olson MD [address] [place] [address] PCP - [facility] 09/04/21 02/18/22 documented as of this encounter
--- OUTSIDE RECORDS SUMMARY | 2024-07-22 15:04 | XMS_ITS | Encounter Summary ---
[place] [address] Care Team Providers Care Dynamic Etching Processor Name Role Phone Lauri Dallas MD Primary Care Provider [phone] Reason for Visit * Reason Comments Wound Check Encounter Details Date Type Department Care Team (Late st Contact Info) Description 08/04/2022 9:00 AM EDT [place] [address] Nasra Peña RN Pressure injury of left buttock, stage 4 Social History Tobacco Use Types Packs/Day Years [...] Sign Reading Time Taken Comments Blood Pressure 136/79 08/04/2022 9:21 AM EDT Pulse 62 08/04/2022 9:21 AM EDT Temperature 36.4 ??C (97.5 ??F) 08/04/2022 9:21 AM ED T Respiratory Rate - - Oxygen Saturation 98% 08/04/2022 9:21 AM EDT Inhaled Oxygen Concentration - - Weight - - Height - - Body Mass Index - - documented in this encounter Progress Notes * Nasra Peña RN - 08/04/2022 9:00 AM EDT Images from the original note were not included. [facility] Progress Note Chief Complaint: ??Bruce Velasquez Jr.??is a 56 y.o.??male??is being seen in follow up of pressure injury to??left??ischium with concerns regarding increased drainage. ?? HPI: Bruce Velasquez Jr. is a 56 y.o. male with a hx significant for quadriplegia??after accident 2019 with??s/p C4-T2 spinal fusion for C6-7 bilateral facet dislocation, stage 4 pressureulcer, DVT, s/p colostomy and HTN. ??He was hospitalized from 07/06/21-08/02/21 at [facility] with chronic recurrent multifocal osteomyelitis for which he has been treated multiple times with ciprofloxacin, vancomycin and zosyn. ??He was discharged home for two weeks of oral augmentin and bactrim to complete a four- week course. Readmitted to [facility] on 09[facility]01[facility]21anddischarged home December 2021. Patient is now at home with home health care. December 2020-Pressure mapped at [facility] in [place]. Gel cushion surface in wheelchair Diagnostics: No recent labwork or imaging in [facility] (reports some labs done at [facility] beginning of July 2022) MRI done at [facility] of left ischial area on 03/07/22 Type of Wound: Pressure injury Home Health Agency: Yes [facility] Subjective: Patient denies fever, chills, sweats. Denies nausea, vomiting, loose bowels. Last FSBS: N/A Appetite is good Taking protein supplements: No Activity/Mobility: Chairfast Objective: Vitals: BP 136/79 (BP Location (NBP): Left arm, Patient Position: Sitting, BP Cuff Sizes: Adult (25-34 cm)) Pulse 62 Temp 36.4 ??C (97.5 ??F) (Temporal) SpO2 98% ?? Wound Location 08/04/22 07/21/22 07/18/22 Wound bed Exudate Yudy wound skin Left ischium 1.8 cm x 2.0 cm x 0.8 cm UM: 0.5 cm @ 12 2.4 cm x 1.8 cm x 1.8 cm UM: 12-1 to 1.0 cm 2.5 cm x 1.0 cm x 2.0 cm Full thickness 90% pink, moist with granulation 10% epithelial along edges with epibole. Thin layer of tissue covering bone. Moderate to heavy serous with odor prior to cleansing and greentinge [place], no increased warmth ?? Maceration noted to wound borderd ?? PHOTO Treatment: Analgesia: none administered prior to debridement [] Order entered and documented on DEC Conservative Sharp Debridement: removing devitalized tissue using a curette removing less than 20 cm sq down to and including subcutaneous tissue to reveal healthier tissue. Bleeding: yes. Scant amount controlled with saline rinse and gauze Wound cleansed with normal saline. Wound irrigated with #18 gauge angio with 30 cc saline Wound soaked with Vashe wound cleanser for 7 minutes post debridement. Dressings/wraps applied: 1 piece of Aquacel Ag was removed from the wound bed. Applied stoma powderto periwound skin and crusted with skin prep. Inserted one piece of Aquacel AG (2 cm) ribbon into the wound bed. Covered with a sacral Mepilex border dressing. Pain Reassessment post treatment (0-10): 0 Assessment: Bruce Velasquez Jr. is a 57 y.o. male with Pressure ulcer of the left ischium. There areno signs or symptoms of local or systemic infection noted on examination today. The periwound skin continues to have some signs of pressure present, but it has improved. The wound measurements have decreased significantly since his last visit. There is still moderate to heavy green- tinged drainage with a mild odor. There is varying odor noted (the dressing was last changed on Thursday). We will continue with the application of Aquacel AG ribbon to the wound bed to wick moisture away from the wound and for its absorptive and antimicrobial properties. This was then covered by a Mepilex sacral border dressing for exudate management. The patient has VNA services and a caregiver who assists him with dressing changes. He was pressure mapped on 07/18/22 (see Dennis Trinidad's note for details). We discussed the importance of increasing protein intake and offloading to facilitate wound healing. He has not heard from the company in regards to the new bed. The patient was seen in coordination with Dr. Good (plastics) to evaluate wound. Dr. Good ordered lab work, which the patient will get done today. The patient will follow up here at the [facility] in [address] Good follow-up. The patient verbalized understanding and agreement with the plan of care. Wound(s) currently stalled Barriers to healing: Comorbidities Plan: -Continue wound care. -Consider updated imaging. -Patient to get updated lab work today. -Consultation with Dr. Good on 07/21/22. Plan to evaluate and order a new mattress (alternating air fluidized), pending insurance coverage -patient needs to contact [facility] for wheelchair modifications as the back rest seems to be tilted to the left and the head rest is not in alignment -PT/OT to evaluate for group 2 mattress/adjustable bed (PCP to write order) Group 1 Mattress overlay or mattress ([id number], [id number], [id number]) is covered in the patient meets: A) Criterion 1 or, B) Criteria 2 or 3 and at least one of criteria 4-7 1. Completely immobile -i.e., patient cannot make changes in body position without assistance 2. Limited mobility -i.e patient can not independently make changes in body position significant enough to alleviate pressure. 3. Any stage pressure ulcer on the trunk or pelvis 4. Impaired nutritional status 5. Fecal or urinary status 6. Altered sensory perception 7. Compromised circulatory status. A group 2 support surface is covered if the beneficiary meets at least on eof the following three Criteria (1, 2, 3 ): 1. The beneficiary mcdaniel multiple stage II pressure ulcers located on the trunk or pelvis which havefailed to improve over the past month, during which time the beneficiary has been on a comprehensive ulcer treatment program including each of the following: a. Use of an appropriate group 1 support surface, and b. Regular assessment by a nurse, physician, or other licensed healthcare practitioner, and c. Appropriate turing and positioning and, d. Appropriate wound care, and e. Appropriate management of moisture/incontinence, and f. Nutritional assessment and intervention consistent with the overall plan of care 2. The beneficiary has large or multiple stage III or IV pressure ulcer(s) on the trunk or pelvis. 3. The beneficiary a had a myocutaneous flap or skin graft for a pressure ulcer on the trunk or pelvis within the past 60 days, and has been on a group 2 or 3 support surface immediately prior to discharge from a hospital or nursing facility within the past 30 days Follow up: Return to Wound Healing Center in approximately 1-2 weeks Post Visit Instructions (Home Health Agency and/or patient): Left Ischial Wound Change dressing every 2-3 days or sooner for 50% or greater strike through drainage. 7. Remove old dressing. 1 piece(s) of Aquacel AG ribbon was inserted into the wound bed today. 8. Cleanse wound with wound cleanser or normal saline and gauze. 9. Apply skin prep to periwound skin (skin around the wound). 10. Insert a piece of Aquacel Ag ribbon (2 cm) loosely into wound bed, leaving a 2 cm tail for easyremoval. 11. Cover wound bed with a Mepilex border dressing OR Mepilex non-bordered foam and secure with Medipore tape OR Mepore dressing or Alldress dressing OR similar. 12. Secure edges of dressing with skin prep. Monitor for signs of infection which may include: Fever Sweats Chills Nausea, Vomiting or Diarrhea Unexplained increase in Blood Glucose levels At or around the wound site: Increased pain Swelling or edema Redness Warmth Purulent drainage (thick yellow/green drainage) [place] Contact the [facility] with any above symptoms Thursday- Thursday 8:00AM-4:30PM ([phone]). If weekends / holidays / evenings, please report to the Emergency Department. High Protein foods: try to eat 5-6 servings of these per day Beef, chicken, fish Beans, Lentils, peanut butter Colombian and regular yogurt Cheese, eggs Boost, Ensure shakes Protein powder in a smoothie of your choice Support surfaces alone do not prevent or heal pressure ulcers. Avoid alkaline soaps so pH and normal daphne of skin remain intact Do not use friction when washing Apply moisturizer or emollient frequently to prevent dry skin Get adequate fluid intake to prevent dehydration Use moisture barrier ointments as needed to protect skin form chemical irritants such as stool Do no massage areas of redness Transfer with lift sheets, christa to avoid shear Reposition hourly to every 2 hours Limit head of bed elevation to 30 degrees When up in chair should shift weight every 5-20 minutes, and should be limited to 1-2 hours or lessat a time. If you have an open wound, should limit to 3 times per day. Inspection of cushion/mattress topper frequently Check on, around, and under support and cover, seams, zippers Check for reduced mattress height Reduced thickness, moisture or soiling Altered integrity Degradation of internal components lifespan per cotton wringer Plan to evaluate and order a new mattress (alternating air fluidized), pending insurance coverage -patient needs to contact [facility] for wheelchair modifications as the back rest seems to be tilted to the left and the head rest is not in alignment -PT/OT to evaluate for group 2 mattress/adjustable bed (PCP to write order) Group 1 Mattress overlay or mattress ([id number], [id number], A4640) is covered in the patient meets: A) Criterion 1 or, B) Criteria 2 or 3 and at least one of criteria 4-7 13. Completely immobile -i.e., patient cannot make changes in body position without assistance 14. Limited mobility -i.e patient can not independently make changes in body position significant enough to alleviate pressure. 15. Any stage pressure ulcer on the trunk or pelvis 16. Impaired nutritional status 17. Fecal or urinary status 18. Altered sensory perception 7. Compromised circulatory status. A group 2 support surface is covered if the beneficiary meets at least on eof the following three Criteria (1, 2, 3 ): 2. The beneficiary mcdaniel multiple stage II pressure ulcers located on the trunk or pelvis which havefailed to improve over the past month, during which time the beneficiary has been on a comprehensive ulcer treatment program including each of the following: a. Use of an appropriate group 1 support surface, and b. Regular assessment by a nurse, physician, or other licensed healthcare practitioner, and c. Appropriate turing and positioning and, d. Appropriate wound care, and e. Appropriate management of moisture/incontinence, and f. Nutritional assessment and intervention consistent with the overall plan of care 2. The beneficiary has large or multiple stage III or IV pressure ulcer(s) on the trunk or pelvis. 3. The beneficiary a had a myocutaneous flap or skin graft for a pressure ulcer on the trunk or pelvis within the past 60 days, and has been on a group 2 or 3 support surface immediately prior to discharge from a hospital or nursing facility within the past 30 days Supplies to be ordered: documented in this encounter Plan of Treatment Not on file documented as of this encounter Visit Diagnoses Diagnosis Pressure injury of left buttock, stage 4 documented in this encounter Care Teams Dynamic Etching Processor Relationship Specialty Start Date End Date Lauri Dallas MD PCP - General Family Medicine 02/19/22 07/21/23 documented as of this encounter
--- OUTSIDE RECORDS SUMMARY | 2024-07-22 15:04 | XMS_ITS | Encounter Summary ---
[place] [address] Care Team Providers Care Sugar Mixer Name Role Phone Lauri Dallas MD Primary Care Provider [phone] Encounter Details Date Type Department Care Team (Late st Contact Info) Description 08/04/2022 Telephone [place] [address] Amelia Rm LPN Social History Tobacco Use [...] Telephone Encounter - Amelia Rm LPN - 08/04/2022 2:18 PM EDT Phone call to PCP office. Left message for call back on Kristen's voicemail Looking for the results of CBC, ESR, CRP and nutritional markers thatJC asked his PCP to order about 2-3 weeks ago. Awaiting call back Amelia Rm LPN documented in this encounter Plan of Treatment Not on file documented as of this encounter Visit Diagnoses Not on filedocumented in this encounter Care Teams Sugar Mixer Relationship Specialty Start Date End Date Lauri Dallas MD PCP - General Family Medicine 02/19/22 07/21/23 documented as of this encounter
--- OUTSIDE RECORDS SUMMARY | 2024-07-22 15:04 | XMS_ITS | Encounter Summary ---
[place] [address] Care Team Providers Care Internet Ecommerce Specialist Name Role Phone Genevieve Baez MD Primary Care Provider [phone] Encounter Details Date Type Department Care Team (Late st Contact Info) Description 10/24/2023 Interpretation Only [facility] [address] [place] [address] Shoaib Barr MD [address] [place] [address] Social History Tobacco Use Types [...] CT ABDOMEN AND PELVIS W CONTRAST STAT 10/24/2023 8:43 PM EST documented in this encounter Results * CT Abdomen & Pelvis w Contrast (10/24/2023 8:43 PM EST) PT CLASS E DH RAD ADMITDTTM [id number] RAD PT RAD INFO [id number]^[place]^ Shoaib RAD EXAM DESC CTAPW^CT Abdomen and Pelvis w/ Contrast^RIS RAD Anatomical Region Laterality Modality Abdomen, Pelvis Computed Tomogra phy 10/24/2023 8:43 PM EST Impressions 10/24/2023 9:09 PM EST Significantly limited evaluation. Probable stone obstructing the right proximal renal collecting system. Associated fluid may be related to calyceal rupture. Thank you for letting us participate in the care of this patient. ??If you are a health care provider and have any questions regarding this report, please contact the number below. ??For patients who have questions please contact the health nanny caregiver that requested your imaging first. ? Narrative 10/24/2023 9:09 PM EST EXAMINATION: CT Abdomen and Pelvis w/ Contrast CLINICAL HISTORY: Abd pain TECHNIQUE: Helical CT of the abdomen and pelvis following the intravenous administration of 99 mL of Omnipaque 350 COMPARISON: None FINDINGS: Substantial motion artifact limiting evaluation. 2 small stones with the larger measuring approximately 7 mm projecting in at the right ureteropelvic junction. Nonobstructive right midpole and upper pole renal stones. Left kidney is grossly unremarkable. Anterior bladder catheter noted. Asymmetric right-sided perinephric fluid and fluid along the right paracolic and periureteral region. The liver, spleen, adrenal glands, pancreas are grossly unremarkable. Bowel is nondilated. Moderate amount of stool projecting throughout the colon. Review of bone windows is grossly unremarkable. Procedure Note Zay Tapia MD - 10/24/2023 EXAMINATION: CT Abdomen and Pelvis w/ Contrast CLINICAL HISTORY: Abd pain TECHNIQUE: Helical CT of the abdomen and pelvis following theintravenous administration of 99 mL of Omnipaque 350 COMPARISON: None FINDINGS: Substantial motion artifact limiting evaluation. 2 small stones with the larger measuring approximately 7 mm projecting inat the right ureteropelvic junction. Nonobstructive right midpole and upper polerenal stones. Left kidney is grossly unremarkable. Anterior bladder catheternoted. Asymmetric right-sided perinephric fluid and fluid along the rightparacolic and periureteral region. The liver, spleen, adrenal glands, pancreas are grossly unremarkable. Bowel is nondilated. Moderate amount of stool projecting throughout thecolon. Review of bone windows is grossly unremarkable. IMPRESSION Significantly limited evaluation. Probable stone obstructing the rightproximal renal collecting system. Associated fluid may be related to calycealrupture. Thank you for letting us participate in the care of this patient. If youare a health care provider and have any questions regarding this report,please contact the number below. For patients who have questions please contactthe health nanny caregiver that requested your imaging first. Shoaib Barr MD IMG CT ORDERABLES documented in this encounter Visit Diagnoses Not on filedocumented in this encounter Care Teams Internet Ecommerce Specialist Relationship Specialty Start Date End Date Genevieve Baez MD [address] [place] [address] PCP - General Family Medicine 07/22/23 documented as of this encounter
--- OUTSIDE RECORDS SUMMARY | 2024-07-22 15:04 | XMS_ITS | Encounter Summary ---
[place] [address] Care Team Providers Care Chute Man Name Role Phone Lauri Dallas MD Primary Care Provider [phone] Encounter Details Date Type Department Care Team (Late st Contact Info) Description 07/01/2022 Telephone [place] [address] Amelia Rm LPN Social History [...] Telephone Encounter - Amelia Rm LPN - 07/01/2022 1:46 PM EDT Late entry from 06/30/22: Patient and s/o Cary called to discuss wound care appointments and difficulty with transportation.Cary states they are working on finding transportation for Bruce but is having a hard time. While on the phone with Cary and Cary Barrera states she has concerns about the ostomy that was done at [facility]. On Thursday patient did not have any output in the ostomy bag. Patient had a similar episode last week and had admission to [facility] on 06/26 until Wednesday 06/27. With testing showing no concerns with the colostomy. Patient arrives at his appointment today with a full bag of stool. He has no pain or discomfort. Ostomy team paged and ostomy nurse came to bedside to help with changing the bag. Phone call place to request records. Amelia Rm LPN documented in this encounter Plan of Treatment Not on file documented as of this encounter Visit Diagnoses Not on filedocumented in this encounter Care Teams Chute Man Relationship Specialty Start Date End Date Lauri Dallas MD PCP - General Family Medicine 02/19/22 07/21/23 documented as of this encounter
--- OUTSIDE RECORDS SUMMARY | 2024-07-22 15:04 | XMS_ITS | Encounter Summary ---
[place] [address] Care Team Providers Care Electronic Scale Subassembler Name Role Phone Lauri Dallas MD Primary Care Provider [phone] Encounter Details Date Type Department Care Team (Late st Contact Info) Description 07/18/2022 2:00 PM EDT Office [place] [address] Jeff Trinidad, OT [facility] [place] [address] S/P C4-T2 PSIF for C6-7 bilateral facet dislocation 10/27/20 Dr. Tong; Pressure injury of left buttock, stage 4 [...] as of this encounter Miscellaneous Notes * Initial Evaluation - Jeff Trinidad, OT - 07/18/2022 2:00 PM EDT Images from the original note were not included. WOUND CARE POSITIONING/PRESSURE MAPPING EVALUATION CERTIFICATION PERIOD: One Time Visit REFERRAL SOURCE: Lauri Dallas DIAGNOSIS: 1. S/P C4-T2 PSIF for C6-7 bilateral facet dislocation 10/27/20 Dr. Tong 2. Pressure injury of left buttock, stage 4 DATE OF INJURY: 2019 MD FOLLOW UP: Thursday with Dr. Good in wound care clinic DATE OF EXAM: 07/18/2022 TOTAL TREATMENT TIME: 30 minutes TIMED CODE TREATMENT TIME: Wheelchair Management (52581) 30 min Objective: Bruce Velasquez Jr. is a male of 57 y.o. who presents today with a diagnosis of quadraplegia and left ischial sore. He was fitted for a group 3 power wheelchair with power tilt, recline, and legs and a axium gel cushion. He then was transitioned to SNF care and due to insurance regulations could not acquire his chair. He developed this wound while in SNF due to being in bed. Patient wasseen by Dr. Dallas and referred to occupational/physical therapy for pressure mapping as part of thecomprehensive wound care clinic. Bruce Velasquez Jr. arrives today alone Pressure mapping images In his present axium gel cushion ASSESSMENT: Favio presents today with fair mapping in his present axium cushion. He has appropriatepressure distribution and the area of his left ischium where his wound is has minimal pressure withmild pressure about his right ischium. His right trochanter has the most pressure but there is no skin issues present. This right ischial pressure is located right on the edge of the well of his cushion and can be variable based on mild positional changes in his chair. He knows to keep an eye on this area as he increases seating time. If issues with skin arise at his trochanters in the futures heideally would attend a seating clinic to do some custom modifications to his cushion. We also attempted adjustments to his headrest for which he does not have enough length of linkage to reach his head appropriately. He plans to contact [facility] to have this modified so that hehas head support. Plan: There is no further indication for OT services at this time. He will contact [facility] to have his headrest adjusted documented in this encounter Plan of Treatment Not on file documented as of this encounter Visit Diagnoses Diagnosis S/P C4-T2 PSIF for C6-7 bilateral facet dislocation 10/27/20 Dr. Tong Arthrodesis status Pressure injury of left buttock, stage 4 documented in this encounter Care Teams Electronic Scale Subassembler Relationship Specialty Start Date End Date Lauri Dallas MD PCP - General Family Medicine 02/19/22 07/21/23 documented as of this encounter
--- OUTSIDE RECORDS SUMMARY | 2024-07-22 15:04 | XMS_ITS | Encounter Summary ---
[place] [address] Care Team Providers Care Needle Molder Name Role Phone Genevieve Baez MD Primary Care Provider [phone] Encounter Details Date Type Department Care Team (Late st Contact Info) Description 08/10/2023 Telephone [place] [address] Unknown None Social History Tobacco Use Types Packs/Day Years [...] encounter Miscellaneous Notes * Telephone Encounter - Thom Wheeler - 08/10/2023 8:49 AM EDT Clinic Coverage - Reason for Call: Provider call PCP: Genevieve Baez MD / Treating provider: Unknown Name of caller (if different from provider): Laura [facility] Name of Provider: Genevieve Baez MD Name of Facility they ar calling from: [facility] Reason for call: Laura called in, stated that the patient had contacted them and informed them thathe has not been able to schedule an appointment as of yet. Laura stated that the patient is currently having trouble with his electric wheelchair, and was hoping for a telehealth appointment. Call Back Number: [phone] Ext. [phone] Best time to call: any Route Per Clinic Coverage Page documented in this encounter Plan of Treatment Not on file documented as of this encounter Visit Diagnoses Not on filedocumented in this encounter Care Teams Needle Molder Relationship Specialty Start Date End Date Genevieve Baez MD [address] [place] [address] PCP - General Family Medicine 07/22/23 documented as of this encounter
--- OUTSIDE RECORDS SUMMARY | 2024-07-22 15:04 | XMS_ITS | Encounter Summary ---
Author Organization [facility] [place] [address] Care Team Providers Care International Travel Consultant Name Role Phone Lauri Dallas MD Primary Care Provider Reason for Referral * Consultation (Urgent) - Closed Specialty Diagnoses / Procedures Referred By Contac t Referred To Contact Wound Care Diagnoses Pressure injury of skin of buttock, unspecified injury stage, unspecified laterality Lauri Dallas MD [address] [place] [address] [place] [address] [facility] [place] [address] Referral ID Status Reason Start Date Expiration Date V isits Requested Visits Authorized [id number] Closed Consult, Test & Treat PCP Updated and/or Approved 02/19/2022 02/19/2023 6 6 Encounter Details Date Type Department Care Team (Late st Contact Info) Description 02/19/2022 Transcribe Orders eDH Incoming Referrals [phone] Lauri Dallas MD [address] [place] [address] [place] [address] Pressure injury of skin of buttock, unspecified [...] Schedule Referral to Wound Clinic Outpatient Referral Routine Pressure injury of skin of buttock, unspecified injury stage, unspecified laterality Ordered: 02/19/2022 documented as of this encounter Visit Diagnoses Diagnosis Pressure injury of skin of buttock, unspecified injury stage, unspecified laterality documented in this encounter Care Teams International Travel Consultant Relationship Specialty Start Date End Date Lauri Dallas MD PCP - General Family Medicine 02/19/22 07/21/23 documented as of this encounter
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
--- OUTSIDE RECORDS SUMMARY | 2024-07-22 15:04 | XMS_ITS | Encounter Summary ---
[place] [address] Care Team Providers Care Feller Machine Operator Name Role Phone Lauri Dallas MD Primary Care Provider Reason for Referral * Consultation (LUIS) - Closed Specialty Diagnoses / Procedures Referred By Contac t Referred To Contact Infectious Diseases Diagnoses Osteomyelitis, unspecified site, unspecified type Pressure injury of skin of buttock, unspecified injury stage, unspecified laterality Osteomyelitis, unspecified site, unspecified type Pressure injury of skin of buttock, unspecified injury stage, unspecified laterality Lauri Dallas MD [address] [place] [address] [place] [address] [facility] Infectious Dis [address] [place] [id number] Referral ID Status Reason Start Date Expiration Date V isits Requested Visits Authorized [id number] Closed Consult, Test & Treat PCP Updated and/or Approved 03/14/2022 03/14/2023 6 6 Encounter Details Date Type Department Care Team (Late st Contact Info) Description 03/14/2022 Transcribe Orders eDH Incoming Referrals [phone] Lauri Dallas MD [facility] [place] [address] Osteomyelitis, unspecified site, unspecified type; Pressure injury of skin of buttock, unspecified [...] Infectious Disease and International Health Outpatient Referral Routine Osteomyelitis, unspecified site, unspecified type Pressure injury of skin of buttock, unspecified injury stage, unspecified laterality Ordered: 03/14/2022 documented as of this encounter Visit Diagnoses Diagnosis Osteomyelitis, unspecified site, unspecified type Pressure injury of skin of buttock, unspecified injury stage, unspecified laterality documented in this encounter Care Teams Feller Machine Operator Relationship Specialty Start Date End Date Lauri Dallas MD PCP - General Family Medicine 02/19/22 07/21/23 documented as of this encounter
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
--- OUTSIDE RECORDS SUMMARY | 2024-07-22 15:04 | XMS_ITS | Encounter Summary ---
[place] [address] Care Team Providers Care Child Nutrition Director Name Role Phone Genevieve Baez MD Primary Care Provider [phone] Encounter Details Date Type Department Care Team (Latest Contact Info) Description 10/25/2023 4:46 AM EST - 10/25/2023 5:46 AM EST Hospital En[place] [address] Alfonso Brian MD [facility] [address] Discharge Disposition: Home Social History Tobacco Use [...] - See Instructions). FLUSH PROTOCOL WITH MEDICATIONS ([facility]): Before med infusion: flush with NS 10 [...] - See Instructions). FLUSH PROTOCOL WITH MEDICATIONS ([facility]): Before med infusion: flush with NS 10 [...] on filedocumented in this encounter Care Teams Child Nutrition Director Relationship Specialty Start Date End Date Genevieve Baez MD [address] [place] [address] PCP - General Family Medicine 07/22/23 documented as of this encounter
--- OUTSIDE RECORDS SUMMARY | 2024-07-22 15:04 | XMS_ITS | Encounter Summary ---
[place] [address] Care Team Providers Care Convertible Power Shovel Operator Name Role Phone Iain Olson MD Primary Care Provid er Encounter Details Date Type Department Care Team (Late st Contact Info) Description 09/04/2021 Telephone [place] [phone] Mely Rocha Social History Tobacco Use Types Packs/Day Years [...] on filedocumented in this encounter Care Teams Convertible Power Shovel Operator Relationship Specialty Start Date End Date Iain Olson MD [address] [place] [address] PCP - General [facility] Medicine 09/04/21 02/18/22 documented as of this encounter
--- OUTSIDE RECORDS SUMMARY | 2024-07-22 15:04 | XMS_ITS | Encounter Summary ---
[place] [address] Care Team Providers Care Armature Winder Name Role Phone Lauri Dallas MD Primary Care Provider [phone] Encounter Details Date Type Department Care Team (Late st Contact Info) Description 04/21/2022 Telephone [place] [address] Amelia Rm LPN Social History [...] Telephone Encounter - Amelia Rm LPN - 04/21/2022 11:41 AM EDT Trish from [facility] called. Sacral wound is draining more and they would like to use optiforam with the mepilex sacral dressing. Follow up appointment made for patient on April 30 at 1:45. MARY KAY Cohen Nancy A, APRN sent to Amelia Rm LPN Hi Amelia Optifoam is a foam dressing, ??it should not be used with a the sacral border dressing which is also a foam dressing. Do they have Aquacel extra? That can be used with the sacral border dressing and absorb drainage. Thanks, [place] ?? Phone call placed to Radha at [facility]. Left voicemail on provider line Amelia Rm LPN documented in this encounter Plan of Treatment Not on file documented as of this encounter Visit Diagnoses Not on filedocumented in this encounter Care Teams Armature Winder Relationship Specialty Start Date End Date Lauri Dallas MD PCP - General Family Medicine 02/19/22 07/21/23 documented as of this encounter
--- OUTSIDE RECORDS SUMMARY | 2024-07-22 15:04 | XMS_ITS | Encounter Summary ---
[place] [address] Care Team Providers Care Rewinder Name Role Phone Lauri Dallas MD Primary Care Provider Encounter Details Date Type Department Care Team (Late st Contact Info) Description 07/21/2022 9:00 AM EDT Office [place] [id number] Lucie Reilly RN Pressure injury of left ischium, stage 4; S/P C4-T2 PSIF for C6-7 bilateral facet dislocation 10/27/20 Dr. Tong; Quadriplegia; Chronic recurrent multifocal osteomyelitis; Impaired mobility Social History Tobacco Use Types Packs/Day Years [...] Sign Reading Time Taken Comments Blood Pressure 102/66 07/21/2022 9:58 AM EDT Pulse 63 07/21/2022 9:58 AM EDT Temperature 36.3 ??C (97.3 ??F) 07/21/2022 9:58 AM ED T Respiratory Rate - - Oxygen Saturation 94% 07/21/2022 9:58 AM EDT Inhaled Oxygen Concentration - - Weight - - Height - - Body Mass Index - - documented in this encounter Progress Notes * Lucie Reilly RN - 07/21/2022 9:00 AM EDT Images from the original [...] HTN. ??He was hospitalized from 07/06/21-08/02/21 at [facility] with chronic recurrent multifocal osteomyelitis for which he has been treated multiple times with ciprofloxacin, vancomycin and zosyn. ??He was discharged home for two weeks of oral augmentin and bactrim to complete a four- week course. Readmitted to [facility] on 09[facility]01[facility]21anddischarged home December 2021. Patient is now at home with home health care. December 2020-Pressure mapped at [facility] in [place]. Gel cushion surface in wheelchair Diagnostics: No recent labwork or imaging in eDH (reports some labs done at [facility] beginning of July 2022) MRI done at [facility] of left ischial area on 03/07/22 Type of Wound: Pressure injury Home Health Agency: [facility] Subjective: Patient denies fever, chills, sweats. Denies nausea, vomiting, loose bowels. Last FSBS: N/A Appetite is good Taking protein supplements: No Activity/Mobility: Chairfast Objective: Vitals: BP 102/66 (BP Location (NBP): Left arm, Patient Position: Sitting, BP Cuff Sizes: Large Adult (32-43 cm)) Pulse 63 Temp 36.3 ??C (97.3 ??F) (Tympanic) SpO2 94% ?? Wound Location 07/21/22 07/18/22 07/01/22 Wound bed Exudate Yudy wound skin Left ischium 2.4 cm x 1.8 cm x 1.8 cm UM: 12-1 to 1.0 cm 2.5 cm x 1.0 cm x 2.0 cm 2.5 cm x 1.5 cm x 1.2 cm ?? UM: 12-1 to 1.8 cm ?? 0.8 cm @ 3 0.5 cm @ 9 Full thickness 90% pink, moist with granulation 10% epithelial along edges with epibole. Thin layer of tissue covering bone. Moderate serous [place], no increased warmth ?? Maceration noted to wound borderd ?? PHOTO Treatment: Analgesia: none administered prior to debridement [] Order entered and documented on MAR Conservative Sharp Debridement: removing devitalized tissue using a curette removing less than 20 cm sq down to and including subcutaneous tissue to reveal healthier tissue. Bleeding: yes. Scant amount controlled with saline rinse and gauze Wound cleansed with normal saline. Wound irrigated with #18 gauge angio with 30 cc saline Wound soaked with Vashe wound cleanser for 7 minutes post debridement. Silver nitrate to epibole TAC 0.1% to thick,dense hypertrophic tissue and erythematous plaques Dressings/wraps applied: 1 piece of Aquacel Ag was removed from the wound bed. Applied stoma powderto periwound skin and crusted with skin prep. Inserted one piece of Aquacel AG (2 cm) ribbon into the wound bed. Covered with a sacral Mepilex border dressing. Pain Reassessment post treatment (0-10): 0 Assessment: Bruce Velasquez JrAshly is a 57 y.o. male with Pressure ulcer of the left ischium. There areno signs or symptoms of local or systemic infection noted on examination today. The periwound skin continues to have some signs of pressure present. There is still moderate to heavy non-purulent, serous drainage. There is varying odor noted (the dressing was last changed 3 days ago). He reports he is only getting in his chair to come to appointments and has an alternating air mattress at home (plan to discuss with PCP need for new mattress as patient reports his is older with areas in disrepair. Plan to continue with the application of Aquacel AG [...] intake and offloading to facilitate wound healing. The patient was seen in coordination with Dr. Good (plastics) to evaluate stalled wound. The patient will follow up here at the [facility] in [address] Good follow-up. The patient verbalized understanding and agreement with the plan of care. Wound(s) currently stalled Barriers to healing: Comorbidities Plan: -Continue wound care. -Consider updated imaging. -Plan to order updated labs (CBC, ESR, CRP, Nutritional markers) -Consultation with Dr. Good on 07/21/22. Plan to evaluate and order a new mattress (alternating air fluidized), pending insurance coverage -patient needs to contact National seating and mobility for wheelchair modifications as the back rest seems to be tilted to the left and the head rest is not in alignment -PT/OT to evaluate for group 2 mattress/adjustable bed (PCP to write order) Group 1 Mattress overlay or mattress ([id number], [id number], [id number]) is covered in the patient meets: [...] with any above symptoms Thursday- Thursday 8:00AM-4:30PM ([phone]). If weekends / holidays / evenings, please report to the Emergency Department. 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 Tong Arthrodesis status Quadriplegia Quadriplegia, unspecified Chronic recurrent multifocal osteomyelitis Impaired mobility Other ill-defined conditions documented in this encounter Care Teams Rewinder Relationship Specialty Start Date End Date Lauri Dallas MD PCP - General Family Medicine 02/19/22 07/21/23 documented as of this encounter
--- OUTSIDE RECORDS SUMMARY | 2024-07-22 15:04 | XMS_ITS | Encounter Summary ---
[place] [address] Care Team Providers Care Denitrator Operator Name Role Phone Lauri Dallas MD Primary Care Provider [phone] Encounter Details Date Type Department Care Team (Late st Contact Info) Description 07/01/2022 1:45 PM EDT Office [place] [phone] Lucie Reilly RN S/P C4-T2 PSIF for C6-7 bilateral facet dislocation 10/27/20 Dr. Tong; Chronic recurrent multifocal osteomyelitis; S/P colostomy; Pressure injury of left buttock, stage 4; [...] Sign Reading Time Taken Comments Blood Pressure 167/98 07/01/2022 1:59 PM EDT Pulse 61 07/01/2022 1:59 PM EDT Temperature 36.8 ??C (98.2 ??F) 07/01/2022 1:59 PM ED T Respiratory Rate 20 07/01/2022 1:59 PM EDT Oxygen Saturation 100% 07/01/2022 1:59 PM EDT Inhaled Oxygen Concentration - - Weight - - Height - - Body Mass Index - - documented in this encounter Patient Instructions * Patient Instructions* Lucie Reilly RN - 07/01/2022 1:45 PM EDT Wound care instructions: Left ischial ulcer -Change dressing every other day or sooner for 50% or greater strike through drainage. Remove old dressing. Cleanse wound with wound cleanser or normal saline and gauze. VASHE wound cleanser (may irrigate with product- do not rinse) Apply skin prep to periwound skin Gently insert (do not over pack) Antimicrobial Kerlix and cover with a small sacral border May apply Hydroguard silicone cream to intact periwound skin (outside of sacral border) Ostomy nurse in to evaluate this patient and changed the bag. Stoma looked healthy. Plan to obtain imaging and labs from [facility] Change position every 1-2 hours While in motorized chair shift weight from side to side to offload every 30-45 minutes. Monitor for signs of infection which may include: Fever Sweats Chills Nausea, Vomiting or Diarrhea Unexplained increase in Blood Glucose levels At or around the wound site: Increased pain Swelling or edema Redness Warmth Purulent drainage (thick yellow/green drainage) Malodor [facility] with any above symptoms Thursday- Thursday 8:00AM-4:30PM ([phone]). If weekends / holidays / evenings, please report to the Emergency Department. Protein powder in a drink of your choice - including the powerade. Protein powder into foods you are already eating Find equivalent to a candy bar which has some nutritional content such as protein bar Offload you backside at least every 2 hours despite fluidized air mattress Shift positions in your wheelchair at least every 30 mintes documented in this encounter Progress Notes * Lucie Reilly RN - 07/01/2022 1:45 PM EDT Images from the original [...] HTN. He was hospitalized from 07/06/21-08/02/21 at [facility] with chronic recurrent multifocal osteomyelitis for which he has been treated multipl e times with ciprofloxacin, vancomycin and zosyn. He was discharged home for two weeks of oral augmentin and bactrim to complete a four-week course. Readmitted to [facility] on 09/01/21and discharged home December 2021. Patient is now at home with home health care. December 2020-Pressure mapped at [facility] in [place]. Gel cushion in wheelchair Home Health Agency: [facility] Pertinent labs/tests: No recent labwork or imaging in e[facility] MRI done at [facility] of left ischial area on 03/07/22 ROS: Negative for constitutional symptoms Appetite: fair, has macanese for breakfast, couple of candy bars during the day and then a good supper Pain: no, paraplegic FBS: na PE: Vital Signs:BP (!) 167/98 (BP Location (NBP): Right arm, Patient Position: Sitting, BP Cuff Sizes: Adult (25-34 cm)) Pulse 61 Temp 36.8 ??C (98.2 ??F) (Oral) Resp 20 SpO2 100% Pleasant, 57 y.o., in NAD. Arrives unaccompanied today-ride waiting outside Mobility: dependent, motorized chair Edema: no Wound Location 07/01/22 812/22 Wound bed Exudate Yudy wound skin Left ischium 2.5 cm x 1.5 cm x 1.2 cm UM: 12-1 to 1.8 cm 0.8 cm @ 3 0.5 cm @ 9 2.8 cm x 1.5 cm x 1.5 cm UM: 1.8 cm @12 0.5 cm @ 9 The rest circumferential to 0.5 cm Full thickness 90% pink, moist with granulation 10% epithelial along edges with epibole Moderate serous [place], no increased warmth Maceration noted to wound borderd The following photo was taken: 07/01/22 Treatment: Cleansed wound with normal saline and gauze. Wound irrigated with #18 Gauge catheter with 30 cc of VASHE wound cleanser Removed devitalized tissue, slough with curette down to and including subcutaneous tissue < 20 sq cm. Bleeding: small Silver nitrate applied to epibole, polypoid tissue Dsg: Applied stoma powder to periwound skin and crusted with skin prep Gently applied Antimicrobial Kerlix into wound bed (primary dressing) and covered with a small sacral border Assessment/Plan: Bruce Velasquez Jr. is a 57 y.o. male with a very complicated medical history. In October 2020 he had a fall (?intoxication) with subsequent quadriplegia resulting in a prolonged hospitalization here at [facility] until the beginning of November. His course has been complicated by chronicsacral wounds with soft tissue infection(s) and osteo, neurogenic bladder requiring a suprapubic catheter c/b recurrent urinary tract infections, and chronic constipation requiring ostomy. He was hospitalized from 07/06/21-08/02/21 at [facility] with chronic recurrent multifocal osteomyelitis for which he has been treated multiple times with ciprofloxacin, vancomycin and zosyn. He was discharged home for two weeks of oral augmentin and bactrim to complete a four-week course. Readmitted to [facility] on 09/01/21and discharged home December 2021. He is currently off allantibiotics. There are no current signs of local or systemic infection. 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 There is rolling of the wound edge along the medial border with some hypergranulation-polyp like tissue along the edge with maceration noted to the wound borders. Silver nitrate was applied to this area. There is no palpable bone in the wound bed at this time. Patient reports stable moderate serous drainage without purulence or odor. He reports the dressing gets changed every other day. No reported fever, chills. 02/24/22 MRI Pelvis W/Wo contrast at [facility]. Per report, it showed a pressure ulcer over the Left Ischial Tuberosity. No focal fluid collection to suggest abscess. Interval interval in marrow edema to the left ischial tuberosity. No definite cortical disruption.This may be reactive related to the adjacent ulcer but early osteo cannot be excluded. No current labs on file. He reports a history of DVT and remains on Eliquis. Dressing continued with antimicrobial Kerlix (primary dressing) gently inserted into wound bed for antimicrobial properties and absorption followed by a small sacral border. Hydroguard silicone creamwas applied to the periwound skin to provide additional protection from friction and shear. Discussed with patient the importance of increasing his protein intake and the nutrient deficiencies with his current dietary intake. Recommended use of protein drinks. He reports he is getting some protein in his diet but not as recommended for wound healing. Patient is a non- cigarette smoker but does have medical card for marijuana and smokes this substance on a daily basis. Discussed with patient that there is still some discoloration in the center of the wound bed (improving)and the periwound skin has signs of pressure related changes in that area, he states that he spends most of his time lying on his back in his bed. He reports that he has an alternating air mattress. Reviewed the need to off load even with an alternating air mattress, suggested lying on his sides or placing a pillow under his thigh to off load the ischium. He has a motorized wheelchair but reports that it has been about 1 year since his cushion was pressure mapped. Last [facility] ID follow-up was09/2001. Plan to arrange for updated pressure mapping with Dennis Trinidad OT (07/18) and schedule an evaluation with plastic surgeon Dr. Rodrigo Good (07/21/22 to discuss potential surgical closure options once adequately offloaded and adequate nutritional parameters are met. Of note, He was admitted overnight at [facility] 06/26-06/27 for reports of stool coming from anus and not from colostomy. He reports he had labwork, imaging and surgical consult. Records to be obtained. Ostomy nurse paged to collaborate with this visit. Stoma red, moist and looks healthy. Liquid to semi-formed brown stool noted in bag. No visible stool in rectal area. No bleeding noted. Plan: Recommend if no recent CBC, ESR, CRP, pre-albumin and albumin (can be ordered by PCP and performed locally)-not sure what labs done by [facility] providers Plan to schedule updated Pressure mapping Surgical evaluation with Dr. Rodrigo Good (plastics) Follow up: 2-3 weeks Wound care instructions: New wound treatment plan Left ischial ulcer -Change dressing every other day or sooner for 50% or greater strike through drainage. 1. Remove old dressing. 2. Cleanse wound with wound cleanser or normal saline and gauze. VASHE wound cleanser (may irrigatewith product- do not rinse) 3. Apply skin prep to periwound skin 4. Gently insert (do not over pack) Antimicrobial Kerlix and cover with a small sacral border 5. May apply Hydroguard silicone cream to intact periwound skin (outside of sacral border) Monitor for signs of infection which may include: Fever Sweats Chills Nausea, Vomiting or Diarrhea Unexplained increase in Blood Glucose levels At or around the wound site: Increased pain Swelling or edema Redness Warmth Purulent drainage (thick yellow/green drainage) Malodor Contact [facility] with any above symptoms Thursday- Thursday 8:00AM-4:30PM ([phone]). If weekends / holidays / evenings, please report to the Emergency Department. Protein powder in a drink of your choice - including the powerade. Protein powder into foods you are already eating Find equivalent to a candy bar which has some nutritional content such as protein bar Offload you backside at least every 2 hours despite fluidized air mattress Shift positions in your wheelchair at least every 30 mintes documented in this encounter Plan of Treatment Not on file documented as of this encounter Visit Diagnoses Diagnosis S/P C4-T2 PSIF for C6-7 bilateral facet dislocation 10/27/20 Dr. Tong Arthrodesis status Chronic recurrent multifocal osteomyelitis S/P colostomy Colostomy status Pressure injury of left buttock, stage 4 Quadriplegia Quadriplegia, unspecified documented in this encounter Care Teams Denitrator Operator Relationship Specialty Start Date End Date Lauri Dallas MD PCP - General Family Medicine 02/19/22 07/21/23 documented as of this encounter
--- OUTSIDE RECORDS SUMMARY | 2024-07-22 15:04 | XMS_ITS | Encounter Summary ---
Author Organization [facility] [place] [address] Care Team Providers Care Fountain Pen Turner Name Role Phone Genevieve Baez MD Primary Care Provider Reason for Visit * Consultation (Routine) - Closed Specialty Diagnoses / Procedures Referred By Contac t Referred To Contact Infectious Diseases Diagnoses Osteomyelitis, unspecified site, unspecified type Genevieve Baez MD [address] [place] [address] [facility] [address] [place] [phone] Referral ID Status Reason Start Date Expiration Date V isits Requested Visits Authorized [id number] Closed Consult, Test & Treat PCP Updated and/or Approved 07/22/2023 07/21/2024 12 12 Encounter Details Date Type Department Care Team (Latest Contact Info) Description 08/18/2023 2:20 PM EDT TH Visit (TeleHealth) [place] [address] Rayna Kendrick MD [facility] [place] [address] DH PATIENT NOT SEEN Social History Tobacco Use Types Packs/Day Years Used Date Smoking Tobacco: Former Smokeless Tobacco: Never Alcohol Use Standard Drinks/Week Comments Yes 21 (1 standard drink = 0.6 oz pu re alcohol) Sex and Gender Information Value Date Recorded Sex Assigned at Not on file Gender Identity Not on file Sexual Orientation Not on file documented as of this encounter Progress Notes * aRyna Kendrick MD - 08/18/2023 2:20 PM EDT Patient no showed for this visit. documented in this encounter Plan of Treatment Scheduled Referrals Name Type Priority Associated Diagnoses Order Schedule Referral to Infectious Disease and [facility] Outpatient Referral Routine Osteomyelitis, unspecified site, unspecified type Ordered: 07/22/2023 documented as of this encounter Visit Diagnoses Diagnosis DH PATIENT NOT SEEN documented in this encounter Care Teams Fountain Pen Turner Relationship Specialty Start Date End Date Genevieve Baez MD [address] [place] [address] PCP - General Family Medicine 07/22/23 documented as of this encounter
--- OUTSIDE RECORDS SUMMARY | 2024-07-22 15:04 | XMS_ITS | Encounter Summary ---
[place] [address] Care Team Providers Care Tree Pruner Name Role Phone Iain Olson MD Primary Care Provid er Reason for Referral * Diagnostic Test (Routine) - Closed Specialty Diagnoses / Procedures Referred By Ness palacio Referred To Contact Cardiology Diagnoses Positive blood culture Procedures Mobile Nery Wendy Skinner APRN [facility] [address] [place] [phone] [facility] [place] [address] Referral ID Status Reason Start Date Expiration Date V isits Requested Visits Authorized [id number] Closed Specialty Service Requested 09/04/2021 09/04/2022 1 1 Reason for Visit * Diagnostic Test (Routine) - Closed Specialty Diagnoses / Procedures Referred By Ness palacio Referred To Contact Cardiology Diagnoses Positive blood culture Procedures Mobile Rormix Wendy Skinner APRN [facility] [address] [place] [address] [facility] [place] [address] Referral ID Status Reason Start Date Expiration Date V isits Requested Visits Authorized [id number] Closed Specialty Service Requested 09/04/2021 09/04/2022 1 1 Encounter Details Date Type Department Care Team (Latest Contact Info) Description 09/04/2021 2:05 PM EDT - 09/04/2021 11:59 PM EDT Hospital Encounter Mobile [place] [address] Wendy Skinner APRN [facility] [address] [place], [place] [id number] Positive blood culture Discharge Disposition: Home Social History Tobacco Use [...] Sig Dispensed Refills Start Date End Date docusate sodium (Colace) 100 mg Capsule Take 100 mg by mouth 3 times daily. 01/13/2021 acetaminophen (Tylenol) 500 mg Tablet Take 1,000 mg by mouth Every 8 hours as needed. 01/13/2021 L. acidophilus/L.bulgari cus (FLORANEX ORAL) Take 1 tablet by mouth 3 times daily. lactulose (Chronulac) 10 gram/15 mL Solution Take [...] Procedure Name Priority Date/Time Associated Diagnosis Comments ECHO COMPLETE Routine 09/04/2021 2:28 PM EDT Positive blood culture documented in this encounter Results * ECHO COMPLETE (09/04/2021 2:28 PM EDT) EF 57 HEARTLAB SYSTEM Anatomical Region Laterality Modality Other 09/04/2021 Narrative 09/04/2021 3:07 PM EDT Procedure: ?Transthoracic Echocardiogram Patient: ?Ron Ramirez ? (Age): 1965(56y) Med Rec#: ? [id number] ?Sex: ?M ? Site Loc: ? [facility] ??Ht / Wt: ??187.96(cm)/90.7 Pt. Loc: ?Echo Lab ?BSA: ?2.17 Study Date: ?? 09/04/2021 ?Pt. Type: Inpatient Tape: ? Referring: Wendy Skinner Reading: Hakeem Alvarez ([id number]) Shirt Sewer: JESSICA Diagnosis: *Bacteremia (R78.81) BP: ? 109/69 SUMMARY: 1. The left ventricular chamber size is normal. There is normal global left ventricular systolic function with an EF of 57% and no wall motion abnormalities. 2. The right ventricle is probably normal in size. Right ventricular global systolic function is probably normal. 3. The cardiac valves appear structurally and functionally normal with no vegetations seen. 4. There is no pericardial effusion. Findings ? : Study Quality: ? Technically limited Left Ventricle: ? The left ventricular chamber size is normal. ?Left ventricular wall thickness is normal. ?No ventricular septal defect is visualized. ?There is normal global left ventricular systolic function. ?The quantitative left ventricular ejection fraction by biplane Matthew's method is 57%. ?There are no left ventricular segmental wall motion abnormalities. Left Atrium: ? The left atrium is normal in size. ?No atrial septal defect is visualized. Right Ventricle: ? The right ventricle is probably normal in size. ?Right ventricular global systolic function is probably normal. Right Atrium: ? The right atrium is normal in size. Aortic Valve: ? The aortic valve is not well visualized. ?The aortic valve is tricuspid.(seen from subcostal window) ?There is no evidence of aortic valve stenosis. ?There is no evidence of aortic regurgitation. Mitral Valve: ? The mitral valve leaflets appear normal. ?There is no evidence of mitral stenosis. ?There is trace mitral regurgitation present. Tricuspid Valve: ? The tricuspid valve leaflets are morphologically normal. ?There is no tricuspid valve stenosis. ?There is trace tricuspid regurgitation present. Pulmonic Valve: ? The pulmonic valve appears normal. ?There is no pulmonic stenosis present. ?There is no evidence of pulmonic regurgitation. Pericardium: ? There is no pericardial effusion. Aorta: ? The aortic root is normal in size. ?The ascending aorta was not well visualized. ?The aortic arch was not well visualized. Venous: ? The inferior vena cava appears normal in size. ?There is a greater than 50% respiratory change in the inferior vena cava dimension. Misc: ? The cardiac valves appear structurally and functionally normal. ?Two-dimensional echo, spectral Doppler and color Doppler performed. Chambers 2D ?Value ?Units (Range) ? IVSd (2D) ? 0.88 ? cm ? LVPWd (2D) ?0.89 ? cm ? IVS:LVPW ratio (2D) 0.99 ? ratio ? LVIDd (2D) ?4.79 ? cm ? LVIDs (2D) ?3.31 ? cm ? LV FS (2D) ?31.01 ?% ? EF Olga Lidia (2D) ?? 58.61 ?% ? Volumes/Mass ?Value ?Units (Range) ? LV ESV SP 4CH (MOD) 45.86 ?ml ? LV ESV SP 2CH (MOD) 43.68 ?ml ? LV EDV BP ? 107.38 ? ml ? LV ESV BP ? 49.13 ?ml ? BP EF (MOD) ? 54.24 ?% ? Diastolic/Systolic Function ?Value ?Units (Range) ? MV E-wave Vmax ?0.77 ? m/sec ? MV deceleration fstj685.65 ? msec ? MV A-wave Vmax ?0.77 ? m/sec ? MV E:A ratio ?0.99 ? ratio ? LV septal e' Vmax ?? 0.12 ? m/sec ? LV lateral e' Vmax ??0.13 ? m/sec ? LV E:e' septal ratio6.63 ? ratio ? LV E:e' lateral rati5.84 ? ratio ? Aortic Valve ?Value ?Units (Range) ? AV Vmax ? 1.55 ? m/sec ? AV VTI ?23.01 ?cm ? AV peak gradient ?9.59 ? mmHg ? AV mean gradient ?5.39 ? mmHg ? LVOT diameter ? 2.24 ? cm ? LVOT Vmax ? 1.42 ? m/sec ? LVOT VTI ?20.93 ?cm ? CO LVOT ? 8.08 ? l/min ? YADY (continuity Vmax3.63 ? cm2 ? YADY (continuity Vmax1.67 ? cm2/m2 ? YADY (continuity VTI)1.66 ? cm2/m2 ? Mitral Valve ?Value ?Units (Range) ? MV VTI ?26.16 ?cm ? MV PHT ?97.34 ?msec ? MVA (PHT) ? 2.26 ? cm2 ? Pulmonic Valve/Qp:Qs ?Value ?Units (Range) ? PV Vmax ? 1.19 ? m/sec ? PV VTI ?23.05 ?cm ? PV peak gradient ?5.69 ? mmHg ? PV mean gradient ?4.47 ? mmHg ? RVOT Vmax ? 0.8 ?m/sec ? RVOT VTI ?15.01 ?cm ? RVOT peak gradient ??2.57 ? mmHg ? PV acceleration time99.45 ?msec ? PV ejection time ?219.63 ? msec ? PV AT:ET ?0.45 ? ratio ? This report has been electronically signed by: Hakeem Alvarez M.D. ? 09/04/2021 15:06:23 Images reviewed and interpretation verified [facility] Procedure Note Hakeem Alvarez MD - 09/04/2021 Procedure: Transthoracic Echocardiogram Patient: Ron BURROUGHS(Age): 1965(56y) Med Rec#: [id number] Sex: M Site Loc: [facility] Ht / Wt: 187.96(cm)/90.7 Pt. Loc: Echo Lab BSA: 2.17 Study Date: 09/04/2021 Pt. Type: Inpatient Tape: Referring: Wendy Skinner Reading: AntonioHakeem ([id number]) Shirt Sewer: JESSICA Diagnosis: *Bacteremia (R78.81) BP: 109/69 SUMMARY: 1. The left ventricular chamber size is normal. There is normal global left ventricular systolic function with an EF of 57% and no wall motion abnormalities. 2. The right ventricle is probably normal in size. Right ventricular global systolic function is probably normal. 3. The cardiac valves appear structurally and functionally normal with no vegetations seen. 4. There is no pericardial effusion. Findings : Study Quality: Technically limited Left Ventricle: The left ventricular chamber size is normal. Left ventricular wall thickness is normal. No ventricular septal defect is visualized. There is normal global left ventricular systolic function. The quantitative left ventricular ejection fraction by biplane Matthew's method is 57%. There are no left ventricular segmental wall motion abnormalities. Left Atrium: The left atrium is normal in size. No atrial septal defect is visualized. Right Ventricle: The right ventricle is probably normal in size. Right ventricular global systolic function is probably normal. Right Atrium: The right atrium is normal in size. Aortic Valve: The aortic valve is not well visualized. The aortic valve is tricuspid.(seen from subcostal window) There is no evidence of aortic valve stenosis. There is no evidence of aortic regurgitation. Mitral Valve: The mitral valve leaflets appear normal. There is no evidence of mitral stenosis. There is trace mitral regurgitation present. Tricuspid Valve: The tricuspid valve leaflets are morphologically normal. There is no tricuspid valve stenosis. There is trace tricuspid regurgitation present. Pulmonic Valve: The pulmonic valve appears normal. There is no pulmonic stenosis present. There is no evidence of pulmonic regurgitation. Pericardium: There is no pericardial effusion. Aorta: The aortic root is normal in size. The ascending aorta was not well visualized. The aortic arch was not well visualized. Venous: The inferior vena cava appears normal in size. There is a greater than 50% respiratory change in the inferior vena cava dimension. Misc: The cardiac valves appear structurally and functionally normal. Two-dimensional echo, spectral Doppler and color Doppler performed. Chambers 2D Value Units (Range) IVSd (2D) 0.88 cm LVPWd (2D) 0.89 cm IVS:LVPW ratio (2D) 0.99 ratio LVIDd (2D) 4.79 cm LVIDs (2D) 3.31 cm LV FS (2D) 31.01 % EF Teichholz (2D) 58.61 % Volumes/Mass Value Units (Range) LV ESV SP 4CH (MOD) 45.86 ml LV ESV SP 2CH (MOD) 43.68 ml LV EDV BP 107.38 ml LV ESV BP 49.13 ml BP EF (MOD) 54.24 % Diastolic/Systolic Function Value Units (Range) MV E-wave Vmax 0.77 m/sec MV deceleration fwgv171.65 msec MV A-wave Vmax 0.77 m/sec MV E:A ratio 0.99 ratio LV septal e' Vmax 0.12 m/sec LV lateral e' Vmax 0.13 m/sec LV E:e' septal ratio6.63 ratio LV E:e' lateral rati5.84 ratio Aortic Valve Value Units (Range) AV Vmax 1.55 m/sec AV VTI 23.01 cm AV peak gradient 9.59 mmHg AV mean gradient 5.39 mmHg LVOT diameter 2.24 cm LVOT Vmax 1.42 m/sec LVOT VTI 20.93 cm CO LVOT 8.08 l/min YADY (continuity Vmax3.63 cm2 YADY (continuity Vmax1.67 cm2/m2 YADY (continuity VTI)1.66 cm2/m2 Mitral Valve Value Units (Range) MV VTI 26.16 cm MV PHT 97.34 msec MVA (PHT) 2.26 cm2 Pulmonic Valve/Qp:Qs Value Units (Range) PV Vmax 1.19 m/sec PV VTI 23.05 cm PV peak gradient 5.69 mmHg PV mean gradient 4.47 mmHg RVOT Vmax 0.8 m/sec RVOT VTI 15.01 cm RVOT peak gradient 2.57 mmHg PV acceleration time99.45 msec PV ejection time 219.63 msec PV AT:ET 0.45 ratio This report has been electronically signed by: Ruth Alvarez M.D. 09/04/2021 15:06:23 Images reviewed and interpretation verified [facility] Wendy Skinner PRICK STITCHER ECHO ORDERABLES documented in this encounter Visit Diagnoses Diagnosis Positive blood culture Bacteremia documented in this encounter Care Teams Tree Pruner Relationship Specialty Start Date End Date Iain Olson MD [address] [place] [address] PCP - [facility] 09/04/21 02/18/22 documented as of this encounter
--- OUTSIDE RECORDS SUMMARY | 2024-07-22 15:04 | XMS_ITS | Encounter Summary ---
[place] [address] Care Team Providers Care Box Hinge And Lock Attacher Name Role Phone Iain Olson MD Primary Care Provid er Encounter Details Date Type Department Care Team (Latest Contact Info) Description 10/17/2021 11:15 AM EST Office Visit [place] [address] [place] [address] Pressure ulcer of right foot, stage 3; Pressure injury of buttock, stage 4, unspecified laterality; Chronic recurrent multifocal osteomyelitis Social History Tobacco Use Types Packs/Day Years [...] Sign Reading Time Taken Comments Blood Pressure 130/72 10/17/2021 11:24 AM EST Pulse 70 10/17/2021 11:24 AM EST Temperature 36.5 ??C (97.7 ??F) 10/17/2021 11:[address] Respiratory Rate 16 10/17/2021 11:24 AM EST Oxygen Saturation 98% 10/17/2021 11:24 AM EST Inhaled Oxygen Concentration - - Weight - - Height - - Body Mass Index - - documented in this encounter Patient Instructions * Patient Instructions* Ana Rojas APRN - 10/17/2021 11:15 AM EST Ischial and right heel ulcer - Change dressing every 2 days or sooner for 50% or greater strike through drainage. ?? 1. Remove old dressing. One piece was inserted into each wound bed today. 2. Cleanse wound with wound cleanser or normal saline and gauze. 3. Insert a piece of Aquacel Ag ribbon loosely into wound bed, leaving a 2 cm tail for easy removal. 4. Cover wound bed with a Mepilex border dressing OR similar. 5. Secure edges of dressing with skin prep. ?? Right heel - Change dressing every 3 days or sooner for 50% or greater strike through drainage. ?? 6. Remove old dressing. 7. Cleanse wound with wound cleanser or normal saline and gauze. 8. Apply skin prep to periwound skin. 9. Cover wound bed with a Mepilex heel border dressing OR similar. 10. Secure edges of dressing with skin prep. ?? Place both feet into z flex off loading boots, ensure that the heels are in the heel space ?? Reposition patient from side to back to side every two hours while in bed Patient should reposition in wheelchair at least every 30 minutes ?? Monitor for signs of infection which may include: Fever Sweats Chills Nausea, Vomiting or Diarrhea Unexplained increase in Blood Glucose levels ?? At or around the wound site: Increased pain Swelling or edema Redness Warmth ?? Purulent drainage (thick yellow/green drainage) Malodor ?? Contact the [facility] with any above symptoms Thursday- Thursday 8:00AM-4:30PM ([phone]). If weekends / holidays / evenings, please report to the Emergency Department. ?? documented in this encounter Progress Notes * Ana Rojas, REPORTING PROCESS CONSULTANT - 10/17/2021 11:15 AM EST Images from the original note were not included. [facility] Follow up Note Reason for Visit: Bruce Velasquez Jr. is a 56 y.o. male is being seen in follow up of pressure ulcers to his bilateral ischium and sacrum. HPI: Bruce Velasquez Jr. is a 56 y.o. male, referred by Lauri Dallas MD, with a hx significant for quadriplegia after accident in October, with s/p C4-T2 spinal fusion for C6-7 bilateral facet dislocation, stage 4 pressure ulcer, DVT, s/p colostomy and HTN. He was hospitalized from 07/06/21-08/02/21 at [facility] with chronic recurrent multifocal osteomyelitis for which he has been treated multiple times with ciprofloxacin, vancomycin and zosyn. He was discharged home on two weeks of oral augmentin and bactrim to complete a four-week course. He was seen in followup by his PCP on 08/09/21. He was discharged home and returned to [facility] on 09/01 where he isstill inpatient, he hopes to be discharged to [...] bilateral facet dislocation 10/27/20 Dr. Tong Z98.1 ??? Chronic recurrent multifocal osteomyelitis M86.30 ??? History of caloric malnutrition Z86.39 ??? Neurogenic bladder N31.9 ??? Pressure injury of buttock, stage 4 L89.304 ??? Quadriplegia G82.50 ??? S/P colostomy Z93.3 ??? Pressure ulcer of right foot, stage 3 L89.893 Social History Socioeconomic History ??? Marital status: [...] Pain: no, insensate FBS today na PE: Vitals: BP 130/72 (BP Location (NBP): Right arm, Patient Position: Sitting, BP Cuff Sizes: Adult (25-34 cm)) Pulse 70 Temp 36.5 ??C (97.7 ??F) (Tympanic) Resp 16 SpO2 98% General: pleasant, 56 y.o. male in NAD; arrives on stretcher Mobility: dependent, chritsa lift Edema: no Odor: no Wound Location 10/17/21 Measurements 09/19/21 Wound bed Exudate Yudy wound skin Right lateral foot 0.4 x 0.5 x < 0.1cm 1.2 X 1.3 X 0.5 CM 80 % pink, moist; 20% slough Serous, moderate deep pink, no increased warmth Right ischium 2.0 x 1.8 x <1.8 cm 2.2 x 2 x 1.8 cm 100% red, moist Serous, moderate [place], no increased warmth Left ischium 2 x 1.2 x 0.5cm 1.2 x 4 x 0.8 cm 100% red, moist Serous, moderate [place], no increased warmth PHOTOS taken today: Right lateral foot Right ischium Left ischium Sacrum Wound treatment: Cleansed wound with NS / Wound cleansed with VASHE wound cleanser Conservative sharp debridement of necrotic, devitalized tissue on all wound beds with a curette down to and including subcutaneous tissue <20 sq cm. Bleeding easily resolved with normal saline Patient tolerated treatment well. Dressing: Bilateral ischial ulcers: Aquacel Ag ribbon-one strip placed in each [...] which was pressure mapped for him at [facility] during his initial rehab stay after his accident. He is able to reposition the chair so that he does not remain in one position while seated. He has been wearing the z flex boots bilaterally in the wheelchair and in bed. Reviewed the importance of consuming protein to facilitate wound healing. Will continue treatment with Aquacel Ag ribbon for antimicrobial component and exudate management with Mepilex border dressings for the bilateral ischial ulcers. Sacral and heel Mepilex border dressings for protection and prevention of pressure injuries on the sacrum and right heel. Patient continues to be a resident of [facility] but isstill trying to find a place to live . Verbal and written wound care instructions were provided. The patient will call with any questions or concerns. Wound care supplies ordered-none in a skilled facility Follow up: Monthly; sooner with concerns Wound care Instructions: Bilateral ischial ulcers - Change dressing every 2 days or sooner for 50% or greater strike throughdrainage. 1. Remove old dressing. One piece was inserted into each wound bed today. 2. Cleanse wound with wound cleanser or normal saline and gauze. 3. Insert a piece of Aquacel Ag ribbon loosely into wound bed, leaving a 2 cm tail for easy removal. 4. Cover wound bed with a Mepilex border dressing OR similar. 5. Secure edges of dressing with skin prep. Sacrum- Change dressing every 2-3 days or sooner for 50% or greater strike through drainage. 6. Remove old dressing. 7. Cleanse wound with wound cleanser or normal saline and gauze. 8. Apply skin prep to periwound skin. 9. Cover pressure area with a Mepilex Sacral border dressing OR similar. 10. Secure edges of dressing with skin prep. Right heel - Change dressing every 3 days or sooner for 50% or greater strike through drainage. 11. Remove old dressing. 12. Cleanse wound with wound cleanser or normal saline and gauze. 13. Apply skin prep to periwound skin. 14. Cover wound bed with a Mepilex heel border dressing OR similar. 15. Secure edges of dressing with skin prep. [...] with any above symptoms Thursday- Thursday 8:00AM-4:30PM ([phone]). If weekends / holidays / evenings, please report to the Emergency Department. Cc: Iain Olson MD [address] [place] [address] PCP: Iain Olson MD documented in this encounter Plan of Treatment Not on file documented as of this encounter Visit Diagnoses Diagnosis Pressure ulcer of right foot, stage 3 Pressure injury of buttock, stage 4, unspecified laterality Chronic recurrent multifocal osteomyelitis documented in this encounter Care Teams Box Hinge And Lock Attacher Relationship Specialty Start Date End Date Iain Olson MD [address] [place] [address] PCP - [facility] 09/04/21 02/18/22 documented as of this encounter
--- OUTSIDE RECORDS SUMMARY | 2024-07-22 15:04 | XMS_ITS | Encounter Summary ---
[place] [address] Care Team Providers Care Reliner Name Role Phone Genevieve Baez MD Primary Care Provider [phone] Encounter Details Date Type Department Care Team (Late st Contact Info) Description 10/24/2023 Interpretation Only [facility] [address] [place] [address] Shoaib Barr MD [address] [place] [address] Social History Tobacco Use [...] Name Priority Date/Time Associated Diagnosis Comments CT UPPER EXTREMITY W CONTRAST LEFT STAT 10/24/2023 8:45 PM EST documented in this encounter Results * CT Upper Extremity w Contrast Left (10/24/2023 8:45 PM EST) PT CLASS E DH RAD ADMITDTTM [id number] RAD PT RAD INFO [id number]^Cortney^ Shoaib RAD EXAM DESC CTUPXWL^CT Upper Extremity w/ Contrast Left^RIS RAD Anatomical Region Laterality Modality Shoulder, Arm, Elbow, Forearm, Wrist, Hand Left Computed Tomography 10/24/2023 8:45 PM EST Impressions 10/24/2023 9:40 PM EST Grossly unremarkable limited/motion-degraded examination. Thank you for letting us participate in the care of this patient. ??If you are a health care provider and have any questions regarding this report, please contact the number below. ??For patients who have questions please contact the health lpn care manager that requested your imaging first. ? Electronically signed by: Allen García MD, [facility] ([phone]), at 10/24/2023 9:40 PM Narrative 10/24/2023 9:40 PM EST EXAMINATION: CT Upper Extremity w/ Contrast Left CLINICAL HISTORY: swelling, sepsis TECHNIQUE: CT LEFT shoulder with intravenous contrast COMMENTS: Please note, this examination was ordered, performed, and interpreted in a STAT/emergency setting. COMPARISON: None FINDINGS: Patient motion artifact degrades image quality of portions of the examination rendering suboptimal assessment; within these confines: Please note coronal and sagittal reconstructions in soft tissue windows not provided. Soft tissues appear grossly unremarkable. Motion degraded osseous structures precluding accurate assessment. Degenerative changes of the acromioclavicular and glenohumeral joint. Partially imaged dependent atelectatic changes within the included LEFT lung. Procedure Note Allen García MD - 10/24/2023 EXAMINATION: CT Upper Extremity w/ Contrast Left CLINICAL HISTORY: swelling, sepsis TECHNIQUE: CT LEFT shoulder with intravenous contrast COMMENTS: Please note, this examination was ordered, performed, andinterpreted in a STAT/emergency setting. COMPARISON: None FINDINGS: Patient motion artifact degrades image quality of portions of theexamination rendering suboptimal assessment; within these confines: Please note coronal and sagittal reconstructions in soft tissue windowsnot provided. Soft tissues appear grossly unremarkable. Motion degradedosseous structures precluding accurate assessment. Degenerative changes of the acromioclavicular and glenohumeral joint. Partially imaged dependentatelectatic changes within the included LEFT lung. IMPRESSION Grossly unremarkable limited/motion-degraded examination. Thank you for letting us participate in the care of this patient. If youare a health care provider and have any questions regarding this report,please contact the number below. For patients who have questions please contactthe health lpn care manager that requested your imaging first. Electronically signed by: Allen García MD, [facility]([phone]), at 10/24/2023 9:40 PM Shoaib Barr MD IMG CT ORDERABLES documented in this encounter Visit Diagnoses Not on filedocumented in this encounter Care Teams Reliner Relationship Specialty Start Date End Date Genevieve Baez MD [address] [place] [address] PCP - General Family Medicine 07/22/23 documented as of this encounter
--- OUTSIDE RECORDS SUMMARY | 2024-07-22 15:04 | XMS_ITS | Encounter Summary ---
Author Organization Replaced By [facility] [place] [address] Care Team Providers Care Viscosity Inspector Name Role Phone Lauri Dallas MD Primary Care Provider [phone] Encounter Details Date Type Department Care Team (Latest Contact Info) Description 07/21/2022 9:00 AM EDT Office [place] [address] Rodrigo Lopez MD [facility] [place] [address] S/P C4-T2 PSIF for C6-7 bilateral facet dislocation 10/27/20 Dr. Tong; Chronic recurrent multifocal osteomyelitis Social History Tobacco [...] as of this encounter Progress Notes * Rodrigo Lopez MD - 07/21/2022 9:00 AM EDT Plastic Surgery Consultation Note: CWC Rodrigo Lopez MD. PCP: Lauri Dallas MD CC: left ischial pressure ulcer HPI: Bruce Velasquez Jr. is a 57 y.o. male here in consultation at the request of Lauri Dallas MD. Patient reports that he initially fell down an embankment. He notes that he had pressure mapping on 07/18/22. His wound drains frequently. He reports that he changes his position every little while. He notes that his bed is likely too short for him. Pertinent history: hx significant for quadriplegia??after accident in October, with??s/p C4- T2 spinal fusion for C6-7 bilateral facet dislocation, stage 4 pressure ulcer, DVT, s/p colostomy and HTN. ??He was hospitalized from 07/06/21-08/02/21 at [facility] with chronic recurrent multifocal osteomyelitis for which he has been treated multiple times with ciprofloxacin, vancomycin and zosyn. ??He was discharged home for two weeks of oral augmentin and bactrim to complete a four-week course. Readmitted to [facility] on 09/01/21and discharged home December 2021. Patient is now at home with home health care. December [facility] [place]. Gel cushion in wheelchair. No past medical history on file. Past Surgical History: Procedure Laterality Date ??? PRO ALLOGRAFT FOR SPINE SURGERY ONLY MORSELIZED N/A 10/27/2020 ALLOGRAFT FOR SPINE SURGERY ONLY; MORSELIZED (WRVU *) performed by Robbin Tong MD at [facility] MAIN OR ??? PRO APPLY/REMOVE CRANIAL FIX DEV N/A 10/27/2020 PLACEMENT-CRANIAL TONGS (INCLUDING REMOVAL) (WRVU 4) performed by Robbin Tong MD at [facility] ??? PRO ARTHRODESIS POSTERIOR/PSTLAT TECH 1 INTERSPACE LUMBAR, EA ADD'L INTERSPACE N/A 10/27/2020 ARTHRODESIS, POSTERIOR VERTEBRAL EA.ADD. SEGMENT (WRVU 6.43) performed by Robbin Tong MD at [facility] MAIN OR ??? PRO ARTHRODESIS, POST/POSTEROLAT TQ, SNGLE INTERSPACE; CERVICAL BELOW C2 SEGMNT Midline 10/27/2020 @ARTHRODESIS, POSTERIOR CERVICAL SPINE (WRVU 17.4) performed by Robbin Tong MD at [facility] MAIN OR ??? PRO AUTOGRAFT SPINE SURGERY LOCAL FROM SAME INCISION N/A 10/27/2020 AUTOGRAFT FOR SPINE SURGERY ONLY, SAME INCISION (WRVU *) performed by Robbin Tong MD at [facility] MAIN OR ??? PRO OPEN POST TREAT CERV VERT FX, 1 LVL N/A 10/27/2020 @OPEN TREATMENT &/OR REDUCTION VERTEBRAL FX., CERVICAL (WRVU 20.84) performed by Rosa Tong MD at [facility] MAIN OR ??? PRO PLACE PERCUT GASTROSTOMY TUBE N/A 11/05/2020 ENDOSCOPY W DIRECTED PLACEMENT PERCUTANEOUS GASTROSTOMY TUBE-PEG (WRVU 3.66) performed by Yoel Medellin MD at [facility] MAIN OR ??? PRO POSTERIOR SEGMENTAL INSTRUMENTATION 3-6 VRT SEG N/A 10/27/2020 POST SPINAL INSTRUMENTATION, 3-6 VERTEBRA, NON SEGMENTAL (WRVU 12.56) performed by Robbin Tong MD at [facility] MAIN OR Social History Socioeconomic History ??? Marital status: [...] Social History Narrative ??? Not on file Social Determinants of Health Financial Resource Strain: Not on file Food Insecurity: Not on file Transportation Needs: Not on file Physical Activity: Not on file Housing Stability: Not on file No Known Allergies Current Outpatient Medications on File Prior to Visit Medication Sig Dispense Refill ??? lactulose (Chronulac) 10 gram/15 mL Solution Take 30 mLs by mouth Daily. ??? melatonin 10 mg Tablet Take 10 mg by mouth Daily. ??? mirtazapine (REMERON) 45 mg Tablet Take 45 mg by mouth Daily. ??? apixaban (Eliquis) 5 mg Tablet Take 5 mg by mouth Twice daily. ??? busPIRone (Buspar) 10 mg Tablet TAKE TWO TABLETS BY MOUTH THREE TIMES A DAY ??? senna (Senokot) 8.6 mg Tablet Take 2 tablets by mouth Twice daily. ??? docusate sodium (Colace) 100 mg Capsule Take 100 mg by mouth Twice daily. ??? phenyleph-min oil-petrolatum 0.25-14-74.9 % Ointment Place 1 Application rectally Every 6 hoursas needed. ??? diclofenac (VOLTAREN) 1 % Gel Apply 4 g topically 4 times daily as needed. ??? acetaminophen (Tylenol) 500 mg Tablet Take 1,000 mg by mouth Every 8 hours as needed. ??? albuteroL 90 mcg/actuation HFA Aerosol Inhaler Inhale 2 puffs into the lungs Every 4 hours as needed. ??? midodrine (Proamatine) 2.5 mg Tablet Take 2.5 mg by mouth 3 times daily. ??? L. acidophilus/L.bulgaricus (FLORANEX ORAL) Take 1 tablet by mouth 3 times daily. ??? doxycycline (VIBRA-TABS) 100 mg Tablet Take 1 tablet by mouth 2 times daily. 14 tablet 0 No current facility-administered medications on file prior to visit. ROS: HEENT, GI, /Renal, Psych, Card, Pulm, Endo, Heme, Immun, Neuro: negative Examination: Constitutional: No acute distress No palpable bone Appears to be non-changing wound Some signs of pressure Odorous Impression: Bruce Velasquez Jr. 57 y.o. male patient with left ischial pressure ulcer. We discussed that his MRI shows edema but no abscess and is not definitive for osteomyelitis. I explained my concerns with the signs of pressure that he has. We need to figure out where and when he is developing pressure to try to prevent any wounds. I think his wound has a chance of healing without an operation. I explained that his wound will not heal if he is putting pressure on his wound. I recommend that we work on figuring out a better bed situation. Plan: 1. Continue wound care with [facility]. 2. Obtain recent labs from [facility]. 3. Follow up with for coordinated appointment with myself and Wound Clinic. 4. Continue to off load. 5. High protein diet. I, Stacie Alonzo, am acting as scribe for Dr. Lopez. All work documented was performed by Dr. Lopez. I performed the services which were documented by the scribe, and I agree with the accuracy of the documentation in this encounter. RODRIGO LOPEZ MD documented in this encounter Plan of Treatment Not on file documented as of this encounter Visit Diagnoses Diagnosis S/P C4-T2 PSIF for C6-7 bilateral facet dislocation 10/27/20 Dr. Tong Arthrodesis status Chronic recurrent multifocal osteomyelitis documented in this encounter Care Teams Viscosity Inspector Relationship Specialty Start Date End Date Lauri Dallas MD PCP - General Family Medicine 02/19/22 07/21/23 documented as of this encounter
--- OUTSIDE RECORDS SUMMARY | 2024-07-22 15:04 | XMS_ITS | Encounter Summary ---
[place] [address] Care Team Providers Care Jumbo Operator Name Role Phone Lauri Dallas MD Primary Care Provider [phone] Encounter Details Date Type Department Care Team (Late st Contact Info) Description 05/20/2022 Telephone [place] [address] Marjan Browning, RN Social History Tobacco Use Types Packs/Day Years [...] encounter Miscellaneous Notes * Telephone Encounter - Marjan Browning RN - 05/20/2022 1:44 PM EDTSummarluis carlos: call [facility] called to state that Favio Velasquez would like to start taking the James protein shakes that were discussed at his 04/30/22 visit with Malgorzata Whitfield APRN. They would like for the prescription to be sent to the [place] [facility] out of the [facility], phone number is . Routed to provider documented in this encounter Plan of Treatment Not on file documented as of this encounter Visit Diagnoses Not on filedocumented in this encounter Care Teams Jumbo Operator Relationship Specialty Start Date End Date Lauri Dallas MD PCP - General Family Medicine 02/19/22 07/21/23 documented as of this encounter
--- OUTSIDE RECORDS SUMMARY | 2024-07-22 15:04 | XMS_ITS | Encounter Summary ---
Author Organization [place] [address] Care Team Providers Care Tower Equipment Repairer Name Role Phone Lauri Dallas MD Primary Care Provider Encounter Details Date Type Department Care Team (Late st Contact Info) Description 08/04/2022 9:15 AM EDT Office [place] [address] Rodrigo Lopez MD [facility] [place] [address] Pressure injury of left buttock, stage 4 [...] Progress Notes * Rodrigo Lopez MD - 08/04/2022 9:15 AM EDT Plastic Surgery Follow Up Note: CWC Provider: Rodrigo Lopez MD. PCP: Lauri Dallas MD CC: left ischial pressure ulcer HPI: Bruce Velasquez Jr. is a 57 y.o. male here in follow up. The patient reports that he's doing ok. He shares that the bed people have not yet come down. He has been off-loading to his bed and been staying away from his chair. The wound measurements have gone down. He has home health changing his wounds. He has had some trouble with his urinary catheter and has had home health managing. Examination: Constitutional: No acute distress No palpable bone The wound has improved overall. No palpable bone ?? Wound Location 08/04/22 07/21/22 07/18/22 Wound bed Exudate Yudy wound skin Left ischium 1.8 cm x 2.0 cm x 0.8 cm ?? UM: 0.5 cm @ 12 2.4 cm x 1.8 cm x 1.8 cm ?? UM: 12-1 to 1.0 cm 2.5 cm x 1.0 cm x 2.0 cm Full thickness 90% pink, moist with granulation 10% epithelial along edges with epibole. ?? Thin layer of tissue covering bone. Moderate to heavy serous with odor prior to cleansing and greentinge Burchinal, no increased warmth ?? Maceration noted to wound borderd ? PHOTO ? Impression: Bruce Velasquez Jr. 57 y.o. male patient with left ischial pressure ulcer. He has had dramatic reduction in the size. There is no erythema he still has some evidence of pressure in the periwound skin but it is improved since his last visit. Patient notes he has been offloading regularly.He has not been able to get the bed at home fixed yet but he is actively engaged with the service to do so. Given his improvement in the size of the wound there is no evidence of infection I recommended he continue to offload. His last prealbumin was in the mid 20s which is excellent. He has had norecent labs from an inflammatory marker standpoint that I can find in the system and he is unsure if he is had those done. I ordered those today. We will ask him to follow-up in a couple weeks given that he has had some significant drainage. We will reassess how he is doing we will continue with silver dressing. Plan: Follow up in two weeks with Dr. Lopez coordinate with wound clinic Referral for labs Silver dressing Continue to off load. High protein diet. I, Arlet Doscinski, have performed the documentation for this encounter in the presence of and acting as a scribe for RODRIGO LOPEZ MD. I performed the services which were documented by the scribe, and I agree with the accuracy of the documentation in this encounter. RODRIGO LOPEZ MD documented in this encounter Plan of Treatment Not on file documented as of this encounter Procedures Procedure Name Priority Date/Time Associated Diagnosis Comments HC C-REACTIVE PROTEIN Routine 08/04/2022 10:51 AM EDT Pressure injury of left buttock, stage 4 HC ESR-SEDIMENTATION RATE, BLOOD Routine 08/04/2022 10:51 AM EDT Pressure injury of left buttock, stage 4 documented in this encounter Results * Sedimentation rate (08/04/2022 10:51 AM EDT) Sedimentation Rate Automated 34 2 - 37 mm/hr [facility] Comment: Effective October 12, 2019 new capillary photometric technology has resulted in a change in reference ranges. It is recommended that each ESR result be reviewed with its own age appropriate reference range. Blood 08/04/2022 10:5 1 AM EDT 08/04/2022 11:25 AM EDT Narrative Resulting Agency Comment Spec In Lab Rodrigo Lopez MD HEMATOLOGY ORDERABLE S [facility] [place] [address] * (ABNORMAL) CRP, acute inflammation (08/04/2022 10:51 AM EDT) C-Reactive Protein 13.9(H) <=4.9 mg/L [facility] Blood 08/04/2022 10:5 1 AM EDT 08/04/2022 11:25 AM EDT Narrative Resulting Agency Comment Spec In Lab Rodrigo Lopez MD CHEMISTRY ORDERABLES [facility] [place] [address] documented in this encounter Visit Diagnoses Diagnosis Pressure injury of left buttock, stage 4 documented in this encounter Care Teams Tower Equipment Repairer Relationship Specialty Start Date End Date Lauri Dallas MD PCP - General Family Medicine 02/19/22 07/21/23 documented as of this encounter
--- OUTSIDE RECORDS SUMMARY | 2024-07-22 15:04 | XMS_ITS | Encounter Summary ---
[place] [address] Care Team Providers Care Cost Consultant Name Role Phone Lauri Dallas MD Primary Care Provider [phone] Encounter Details Date Type Department Care Team (Late st Contact Info) Description 03/20/2022 [place] [address] Marjan Browning, RN Social History [...] Telephone Encounter - Marjan Browning RN - 03/20/2022 2:13 PM EDTSummary: [facility] call Minna, a nurse from [facility] called today regarding Femi Velasquez. She stated that he has new thick green creamy drainage and has a mild odor to his wound. She is questioning whether or not he may be colonized with Pseudomonas. Femi Velasquez does not have a fever, no NVD, no chills, no increase in edema, no erythema or warmth.Minna stated that Femi's wound is doing well and the wound bed has 100% granulation tissue. Geri recently had surgery on his arm and has had many appointments and has been more active than usual lately. Minan also stated that femi's PCP recently mecca his CRP and that value was elevated although she didn't have that number readily accessible to her. She is inquiring about possibly getting an order for acetic acid. Minna's number is [phone] Routing to provider for guidance and to weigh in on the request for an order for the acetic acid. 03/20/2022 1548 PM Per provider: Based on description of green drainage I would say yes it is possible. If no systemic symptoms, I would cleans wound with Vashe if available. Wound care Instructions: [facility] Left ischium ulcer ??- Change dressing every 2 days or sooner for 50% or greater strike through drainage. ??1. Remove old dressing. . 2. Cleanse wound with wound cleanser or normal saline and gauze. ??If Vashe available (soak piece of gauze in Vashe solution and set on wound bed for 7-10 minutes). 3. Insert Promogran into wound bed, followed by Hydrofera blue ready foam/or packing strip. 4. Cover wound bed with a Mepilex border dressing OR similar if not using Hydrofera blue foam. 5. Secure edges of dressing with skin prep. ??Continue z flex off loading boots, ensure that the heels are in the heel space ??He knows to reposition in motorized wheelchair.Patient should reposition in wheelchair at least every 30 minutes 03/20/2022 Called and spoke with Minna and provided her with the providers new instructions. Provider does not wish to order acetic acid, but did change to some products that cover pseudomonas. Minna the [facility]NA nurse verbally read back the instructions and had no questions of me. Informed Minna that if the patient exhibits systemic signs or symptoms of infection that she needs to call us back as we may need to see the patient or order additional imaging or labs. She verbally expressed understanding. ?? documented in this encounter Plan of Treatment Not on file documented as of this encounter Visit Diagnoses Not on filedocumented in this encounter Care Teams Cost Consultant Relationship Specialty Start Date End Date Lauri Dallas MD PCP - General Family Medicine 02/19/22 07/21/23 documented as of this encounter
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
--- OUTSIDE RECORDS SUMMARY | 2024-07-22 15:04 | XMS_ITS | Encounter Summary ---
[place] [address] Care Team Providers Care Drafter Geophysical Name Role Phone Lauri Dallas MD Primary Care Provider [phone] Encounter Details Date Type Department Care Team (Late st Contact Info) Description 07/18/2022 1:45 PM EDT Office [place] [id number] Nasra Peña RN Pressure injury of left ischium, stage 4 Social History Tobacco Use Types [...] Sign Reading Time Taken Comments Blood Pressure 143/93 07/18/2022 1:44 PM EDT Pulse 59 07/18/2022 1:44 PM EDT Temperature 36.1 ??C (97 ??F) 07/18/2022 1:44 PM EDT Respiratory Rate 18 07/18/2022 1:44 PM EDT Oxygen Saturation 99% 07/18/2022 1:44 PM EDT Inhaled Oxygen Concentration - - Weight - - Height - - Body Mass Index - - documented in this encounter Patient Instructions * Patient Instructions* Nasra Peña RN - 07/18/2022 1:45 PM EDT Left Ischial Wound Change dressing every 2-3 days or sooner for 50% or greater strike through drainage. Remove old dressing. 1 piece(s) of Aquacel AG ribbon was inserted into the wound bed today. Cleanse wound with wound cleanser or normal saline and gauze. Apply skin prep to periwound skin (skin around the wound). Insert a piece of Aquacel Ag ribbon (2 cm) loosely into wound bed, leaving a 2 cm tail for easy removal. Cover wound bed with a Mepilex border dressing OR Mepilex non-bordered foam and secure with Medipore tape OR Mepore dressing or Alldress dressing OR similar. Secure edges of dressing with skin prep. Monitor for signs of infection which may include: Fever Sweats Chills Nausea, Vomiting or Diarrhea Unexplained increase in Blood Glucose levels At or around the wound site: Increased pain Swelling or edema Redness Warmth Purulent drainage (thick yellow/green drainage) Malodor [facility] with any above symptoms Thursday- Thursday 8:00AM-4:30PM ([phone]). If weekends / holidays / evenings, please report to the Emergency Department. High Protein foods: try to eat 5-6 servings of these per day Beef, chicken, fish Beans, Lentils, peanut butter Albanian and regular yogurt Cheese, eggs Boost, Ensure [...] cover, seams, zippers Check for reduced mattress pilar Reduced thickness, moisture or soiling Altered integrity Degradation of internal components lifespan per appraisal coordinator documented in this encounter Progress Notes * Nasra Peña RN - 07/18/2022 1:45 PM EDT Images from the original [...] HTN. ??He was hospitalized from 07/06/21-08/02/21 at [facility] with chronic recurrent multifocal osteomyelitis for which he has been treated multiple times with ciprofloxacin, vancomycin and zosyn. ??He was discharged home for two weeks of oral augmentin and bactrim to complete a four- week course. [facility]discharged home December 2021. Patient is now at home with home health care. December 2020-Pressure mapped at [facility] in [place]. Gel cushion in wheelchair Diagnostics: No recent labwork or imaging in eDH MRI done at [facility] of left ischial area on 03/07/22 Type of Wound: Pressure injury Home Health Agency: Yes [facility] Subjective: Patient denies fever, chills, sweats. Denies nausea, vomiting, loose bowels. Last FSBS: N/A Appetite is good Taking protein supplements: No Activity/Mobility: Chairfast Objective: Vitals: Blood pressure (!) 143/93, pulse 59, temperature 36.1 ??C (97 ??F), temperature source Temporal, resp. rate 18, SpO2 99 %. ?? Wound Location 07/18/22 07/01/22 Wound bed Exudate Yudy wound skin Left ischium 2.5 cm x 1.0 cm x 2.0 cm 2.5 cm x 1.5 cm x 1.2 cm ?? UM: 12-1 to 1.8 cm ?? 0.8 cm @ 3 0.5 cm @ 9 Full thickness 90% pink, moist with granulation 10% epithelial along edges with epibole. Thin layer of tissue covering bone. Moderate serous Severn, no increased warmth ?? Maceration noted to wound borderd ? PHOTO Treatment: Analgesia: none administered prior to debridement [] Order entered and documented on DEC Conservative Sharp Debridement: removing devitalized tissue using a curette removing less than 20 cm sq down to and including subcutaneous tissue to reveal healthier tissue. Bleeding: No Wound cleansed with normal saline. Wound soaked with Vashe wound cleanser for 7 minutes post debridement. Dressings/wraps applied: 1 piece of antimicrobial Kerlix was removed from the wound bed. Applied stoma powder to periwound skin and crusted with skin prep. Inserted one piece of Aquacel AG ribbon into the wound bed. Covered with a sacral Mepilex border dressing. Pain Reassessment post treatment (0-10): 0 Assessment: Bruce Velasquez Jr. is a 57 y.o. male with Pressure ulcer of the left ischium. There areno signs or symptoms of infection noted on examination today. The periwound skin continues to have some signs of pressure present. He reports he is only getting in his chair to come to appointments and has an alternating air mattress at home. We will initiate the application of Aquacel AG ribbon to the wound bed to wick moisture away from the wound and for its absorptive and antimicrobial properties. This was then covered by a Mepilex border dressing for exudate management. The patient has VNA services and a caregiver who assists him with dressing changes. He was pressure mapped today (see Dennis Trinidad's note for details). We discussed the importance of increasing protein intake and offloading to facilitate wound healing. The patient will follow up here at the [facility] on Thursday and will be seen by Dr. Good to discuss any surgical options. The patient verbalized understanding and agreementwith the plan of care. Wound(s) currently stalled Barriers to healing: Comorbidities Plan: -Continue wound care. -Consider updated imaging. -Consider updated lab work. -Consultation with Dr. Good on 07/21/22. Follow up: Return to Wound Healing Center in approximately 1 week. Post Visit Instructions (Home Health Agency and/or patient): Left Ischial Wound Change dressing every 2-3 days or sooner for 50% or greater strike through drainage. 1. Remove old dressing. 1 piece(s) of Aquacel AG ribbon was inserted into the wound bed today. 2. Cleanse wound with wound cleanser or normal saline and gauze. 3. Apply skin prep to periwound skin (skin around the wound). 4. Insert a piece of Aquacel Ag ribbon (2 cm) loosely into wound bed, leaving a 2 cm tail for easy removal. 5. Cover wound bed with a Mepilex border dressing OR Mepilex non-bordered foam and secure with Medipore tape OR Mepore dressing or Alldress dressing OR similar. 6. Secure edges of dressing with skin prep. Monitor for signs of infection which may include: Fever Sweats Chills Nausea, Vomiting or Diarrhea Unexplained increase in Blood Glucose levels At or around the wound site: Increased pain Swelling or edema Redness Warmth Purulent drainage (thick yellow/green drainage) Malodor [facility] with any above symptoms Thursday- Thursday 8:00AM-4:30PM ([phone]). If weekends / holidays / evenings, please report to the Emergency Department. High Protein foods: try to eat 5-6 servings of these per day Beef, chicken, fish Beans, Lentils, peanut butter Albanian and regular yogurt Cheese, eggs Boost, Ensure [...] integrity Degradation of internal components lifespan per appraisal coordinator Supplies to be ordered: documented in this encounter Plan of Treatment Not on file documented as of this encounter Visit Diagnoses Diagnosis Pressure injury of left ischium, stage 4 documented in this encounter Care Teams Drafter Geophysical Relationship Specialty Start Date End Date Lauri Dallas MD PCP - General Family Medicine 02/19/22 07/21/23 documented as of this encounter
--- OUTSIDE RECORDS SUMMARY | 2024-07-22 15:04 | XMS_ITS | Encounter Summary ---
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 GeneXpert Dx System (crowdSPRING). This suggests the absence of MRSA in [...] Verified By:Katherine Early (Electronic Signature) Blood culture [[id number]] Collected: 10/28/23 0922 Lab Status: Final result Specimen: Blood from Foot, Left Updated: 11/02/23 1502 Blood Culture No growth at 5 days. Blood culture [[id number]] Collected: 10/28/23 0910 Lab Status: Final result Specimen: Blood from Hand, Right Updated: 11/02/23 1502 Blood Culture No growth at 5 days. Blood culture [[id number]] Collected: 10/25/23 1050 Lab Status: Final result Specimen: Blood Updated: 10/30/23 1501 Blood Culture No growth at 5 days. Blood culture [[id number]] Collected: 10/25/23 1040 Lab Status: Final result Specimen: Blood Updated: 10/30/23 1501 Blood Culture No growth at 5 days. Urine culture Cystoscopic Urine [[id number]] (Abnormal) (Susceptibility) Collected: 10/25/23 0913 Lab Status: [...] Sensitive Penicillin Sensitive Vancomycin Sensitive Urine culture [[id number]] (Abnormal) (Susceptibility) Collected: 10/24/232056 Lab Status: Final [...] using in critically ill patients. Blood culture [[id number]] (Abnormal) (Susceptibility) Collected: 10/24/232056 Lab Status: Final result Specimen: Blood Updated: 10/31/23733 Blood Culture -- Pseudomonas aeruginosa detected by PCR Isolate saved. If future testing is required, contact the Microbiology Survey [facility]. Gram Stain Aerobic -- Growth detected in [...] Bcx x 7 NGTD, Bcx 10/30 w/ miriam parada. ID curbsided 10/28: OPAT at discharge with limited PO abx options - in progress. He is off pressors and WBC is within normal limits. Zosyn per ID. Off Vanc now as MRSA nares negative. Care management engaged for safe discharge planning in regards to his living situation at the family care facility, relationship with his care takers, and assistance getting his motorized wheelchair in working condition. Unfortunately insurance will not cover replacement batteries. CM plans to coordinate where care givers [...] this.Called Dr. Molina's office and spoke w/ sales team recruiter 10/30. Awaiting call back from their office. [...] night I just want sleep. Lauri Jovel ONCOLOGY SOCIAL WORK * Deisy Herrmann RCP - 11/03/2023 5:13 [...] tube, nephrolithiasis, [place] [facility] [place] [...] Franks MD Infectious Diseases Fellow Pager #: [phone] 11/03/2023 6:06 PM ID ATTENDING I have [...] Name: Nighat Barrios : 1965 Medical Record: [id number] Date of Service: 11/03/2023 Hospital Day # [...] Pulmonary & Critical Care Medicine [facility] Associated attestation - Makenzie Dominguez MD - [...] Note Patient: Nighat Barrios : 1965 Room: [address] Admit date: 10/25/2023 Attending: Yessi Lopes [...] 26.6* PLATELET 363* 331 316 Recent Labs 11/04/2315411/03/235 11/02/23 004 NA 143 140 139 K [...] have questions please contact the health home care associate that requested your imaging first. Electronically signed by: Didi Hernandes MD, [facility] ([phone]), at 11/01/2023 2:05 PM - CT abdomen [...] Procedure Component Value Units Date/Time Blood culture [[id number]] Collected: 11/01/23 1430 Lab Status: Preliminary result Specimen: Blood from Foot, Left Updated: 11/03/23 2301 Blood Culture No growth at 2 days. Blood culture [[id number]] Collected: 11/01/23 1420 Lab Status: Preliminary result Specimen: Blood from Foot, Right Updated: 11/03/23 2301 Blood Culture No growth at 2 days. Blood culture [[id number]] Collected: 10/30/23 1300 Lab Status: Preliminary result Specimen: Blood from Hand, Right Updated: 11/03/23 1502 Blood Culture No growth at 4 days. Blood culture [[id number]] (Abnormal) Collected: 10/30/23 1255 Lab Status: Preliminary [...] Cocci in clusters seen MRSA PCR Screen ([facility]/CGP/APD/NLH) [[id number]] Collected: 10/29/23 0648 Lab Status: Final result Specimen: Nasopharyngeal Swab Updated: 10/29/23 1320 MRSA Result Negative MRSA Interp -- Methicillin-resistant Staphylococcus aureus (MRSA) is NOT DETECTED The MRSA target DNA sequences (mec and SCC) were not detected within the acceptable ranges using the Xpert MRSA NxG on the GeneXpert Dx System (crowdSPRING). This suggests the absence of MRSA in [...] Verified By:Katherine Early (Electronic Signature) Blood culture [[id number]] Collected: 10/28/23 0922 Lab Status: Final result Specimen: Blood from Foot, Left Updated: 11/02/23 1502 Blood Culture No growth at 5 days. Blood culture [[id number]] Collected: 10/28/23 0910 Lab Status: Final result Specimen: Blood from Hand, Right Updated: 11/02/23 1502 Blood Culture No growth at 5 days. Blood culture [[id number]] Collected: 10/25/23 1050 Lab Status: Final result Specimen: Blood Updated: 10/30/23 1501 Blood Culture No growth at 5 days. Blood culture [[id number]] Collected: 10/25/23 1040 Lab Status: Final result Specimen: Blood Updated: 10/30/23 1501 Blood Culture No growth at 5 days. Urine culture Cystoscopic Urine [[id number]] (Abnormal) (Susceptibility) Collected: 10/25/23 0913 Lab Status: [...] Sensitive Penicillin Sensitive Vancomycin Sensitive Urine culture [[id number]] (Abnormal) (Susceptibility) Collected: 10/24/232056 Lab Status: Final [...] using in critically ill patients. Blood culture [[id number]] (Abnormal) (Susceptibility) Collected: 10/24/232056 Lab Status: Final result Specimen: Blood Updated: 10/31/23 0734 Blood Culture -- Pseudomonas aeruginosa detected by PCR Isolate saved. If future testing is required, contact the Microbiology Survey [facility]. Gram Stain Aerobic -- Growth detected in [...] to his living situation [facility], relationship with his care takers, and [...] this.Called Dr. Molina's office and spoke w/ sales team recruiter 10/30. Awaiting call back 11/03. On 10/31 [...] Iain Egan MD 11/04/2023 [id number] * Maritza Tiwari, ONCOLOGY SOCIAL WORK - 11/02/2023 9:11 PM EST Respiratory Therapy [...] effusion Electronically signed by: Didi Hernandes MD, [facility] ([phone]), at 11/01/2023 2:05 PM ASSESSMENT: Patient received on above noted settings. Tolerated well overnight without event. Small thick white secretions orally suctioned after LANEY with oscillations, tolerated well and effective with mouthseal (patient does not like masks) PLAN: Will continue to monitor and support MARITZA TIWARI, ONCOLOGY SOCIAL WORK * Amelia Caputo, RT - 11/02/2023 4:51 PM EST Respiratory [...] a hospital length of stay nutrition evaluation. Ocean Fishing Guide met with pt at bedside. He reports that his appetite is okay and that he eats as much of his meals as he can but sometimesis too fatigued to finish d/t difficulty breathing. Ocean Fishing Guide discussed ways to manage fatigue while eating [...] questions answered at this time Abdifatah Briseno, Project Manager/Design Manager * Adam Rapp MD - 11/02/2023 9:06 AM EST Images from the original note were not included. Urology Progress Note Patient: Nighat Barrios : 1965 Room: [address] Admit date: 10/25/2023 Attending: Yessi Lopes [...] 28.0* PLATELET 316 281 267 Recent Labs 11/02/234411/01/23 1420 11/01/23 0028 NA 139 138 143 [...] have questions please contact the health home care associate that requested your imaging first. - CT abdomen pelvis 10/28/23: IMPRESSION 1. [...] Procedure Component Value Units Date/Time Blood culture [[id number]] Collected: 10/30/23 1300 Lab Status: Preliminary result Specimen: Blood from Hand, Right Updated: 11/01/23 1502 Blood Culture No growth at 2 days. Blood culture [[id number]] (Abnormal) Collected: 10/30/23 1255 Lab Status: Preliminary [...] Cocci in clusters seen MRSA PCR Screen ([facility]/CGP/APD/NLH) [[id number]] Collected: 10/29/23 0648 Lab Status: Final result Specimen: Nasopharyngeal Swab Updated: 10/29/23 1320 MRSA Result Negative MRSA Interp -- Methicillin-resistant Staphylococcus aureus (MRSA) is NOT DETECTED The MRSA target DNA sequences (mec and SCC) were not detected within the acceptable ranges using the Xpert MRSA NxG on the GeneXHart InterCivic Dx System (crowdSPRING). This suggests the absence of MRSA in the patient specimen submitted for testing. This test is cleared by the U.S. Food and Drug Administration for clinical use and its performance characteristics have been verified by the [facility] [employer] and [facility] at [facility]. This result does not rule out the presence of any other organisms. Rare false negative results may occur if MRSA is present at low concentrations with much higher concentrations of other organisms including MRSE or S. aureus with an empty SCC cassette. Comment: [VERIFIED DATE]10.29.23 Verified By:Katherine Early (Electronic Signature) Blood culture [[id number]] Collected: 10/28/23 0922 Lab Status: Preliminary result Specimen: Blood from Foot, Left Updated: 11/01/23 1501 Blood Culture No growth at 4 days. Blood culture [[id number]] Collected: 10/28/23 0910 Lab Status: Preliminary result Specimen: Blood from Hand, Right Updated: 11/01/23 1501 Blood Culture No growth at 4 days. Blood culture [[id number]] Collected: 10/25/23 1050 Lab Status: Final result Specimen: Blood Updated: 10/30/23 1501 Blood Culture No growth at 5 days. Blood culture [[id number]] Collected: 10/25/23 1040 Lab Status: Final result Specimen: Blood Updated: 10/30/23 1501 Blood Culture No growth at 5 days. Urine culture Cystoscopic Urine [[id number]] (Abnormal) (Susceptibility) Collected: 10/25/23 0913 Lab Status: [...] Sensitive Penicillin Sensitive Vancomycin Sensitive Urine culture [[id number]] (Abnormal) (Susceptibility) Collected: 10/24/232056 Lab Status: Final [...] using in critically ill patients. Blood culture [[id number]] (Abnormal) (Susceptibility) Collected: 10/24/232056 Lab Status: Final result Specimen: Blood Updated: 10/31/23 0734 Blood Culture -- Pseudomonas aeruginosa detected by PCR Isolate saved. If future testing is required, contact the Microbiology Survey [facility]. Gram Stain Aerobic -- Growth detected in [...] to his living situation [facility] the [facility], relationship with his care takers, and [...] this.Called Dr. Molina's office and spoke w/ sales team recruiter 10/30. Awaiting call back 11/03. On 10/31 [...] Adam Rapp MD 11/02/2023 [id number] * Maritza Tiwari, ONCOLOGY SOCIAL WORK - 11/01/2023 9:00 PM EST Respiratory Therapy [...] effusion Electronically signed by: Didi Hernandes MD, [facility] ([phone]), at 11/01/2023 2:05 PM ASSESSMENT: Patient received on above noted settings. RN weaned to 4 lpm NC was tolerating well. 05:35 Patient had desaturation episode placed back on HFNC at 100% and 45 lpm CCS notified. Patienttook nebulizer's again at 05:35 but refused cough assist CCS aware. PLAN: Will continue to monitor and support MARITZA TIWARI, ONCOLOGY SOCIAL WORK * Rosmery Daly MD - 11/01/2023 5:35 [...] retained stone Rosmery Daly MD ID * Aguila Powers RCP - 11/01/2023 5:26 PM EST Respiratory [...] have questions please contact the health home care associate that requested your imaging first. SSMENT: Pt very course, unable to mobilize secretions [...] as obtain an EKG to ensure no NV. Additionally given that his TTE earlier this [...] Note Patient: Nighat Barrios : 1965 Room: [address] Admit date: 10/25/2023 Attending: Yessi Lopes [...] BID heparin (porcine) 5,000 Units Subcutaneous Q8H [facility] baclofen 20 mg Oral TID mirabegron ER [...] have questions please contact the health home care associate that requested your imaging first. Electronically signed by: Jose Joaquin MD, [facility] ([phone]), at 10/31/2023 8:38 PM - CT abdomen [...] Procedure Component Value Units Date/Time Blood culture [[id number]] Collected: 10/30/23 1300 Lab Status: Preliminary result Specimen: Blood from Hand, Right Updated: 10/31/23 1501 Blood Culture No growth at 1 day. Blood culture [[id number]] (Abnormal) Collected: 10/30/23 1255 Lab Status: Preliminary [...] Cocci in clusters seen MRSA PCR Screen ([facility]/CGP/APD/NLH) [[id number]] Collected: 10/29/23 0648 Lab Status: Final result Specimen: Nasopharyngeal Swab Updated: 10/29/23 1320 MRSA Result Negative MRSA Interp -- Methicillin-resistant Staphylococcus aureus (MRSA) is NOT DETECTED The MRSA target DNA sequences (mec and SCC) were not detected within the acceptable ranges using the Xpert MRSA NxG on the GeneXpert Dx System (crowdSPRING). This suggests the absence of MRSA in [...] Verified By:Katherine Early (Electronic Signature) Blood culture [[id number]] Collected: 10/28/23 0922 Lab Status: Preliminary result Specimen: Blood from Foot, Left Updated: 10/31/23 1501 Blood Culture No growth at 3 days. Blood culture [[id number]] Collected: 10/28/23 0910 Lab Status: Preliminary result Specimen: Blood from Hand, Right Updated: 10/31/23 1501 Blood Culture No growth at 3 days. Blood culture [[id number]] Collected: 10/25/23 1050 Lab Status: Final result Specimen: Blood Updated: 10/30/23 1501 Blood Culture No growth at 5 days. Blood culture [[id number]] Collected: 10/25/23 1040 Lab Status: Final result Specimen: Blood Updated: 10/30/23 1501 Blood Culture No growth at 5 days. Urine culture Cystoscopic Urine [[id number]] (Abnormal) (Susceptibility) Collected: 10/25/23 0913 Lab Status: [...] Sensitive Penicillin Sensitive Vancomycin Sensitive Urine culture [[id number]] (Abnormal) (Susceptibility) Collected: 10/24/232056 Lab Status: Final [...] using in critically ill patients. Blood culture [[id number]] (Abnormal) (Susceptibility) Collected: 10/24/232056 Lab Status: Final result Specimen: Blood Updated: 10/31/23 0734 Blood Culture -- Pseudomonas aeruginosa detected by PCR Isolate saved. If future testing is required, contact the Microbiology Survey [facility]. Gram Stain Aerobic -- Growth detected in [...] to his living situation [facility], relationship with his care takers, and [...] this.Called Dr. Molina's office and spoke w/ sales team recruiter 10/30. Awaiting call back 11/03. On 10/31 [...] KAN Ornelas 11/01/2023 [id number] * Maritza Tiwari, ONCOLOGY SOCIAL WORK - 10/31/2023 9:15 PM EST Respiratory Therapy [...] process. Electronically signed by: Jose Joaquin MD, [facility] ([phone]), at 10/31/2023 8:38 PM ASSESSMENT: 18:58 Patient [...] requirements. Will wean FIO2 as tolerated. MARITZA TIWARI RRT * Lauri Jovel RCP - 10/31/2023 7:31 [...] turned on his opposite side. Lauri Jovel ONCOLOGY SOCIAL WORK * Vanesa Rojas RN - 10/31/2023 6:19 [...] pain reported. MD to beside. * Ester Edawrds PA - 10/31/2023 12:01 PM EST Images from the original note were not included. Urology Progress Note Patient: Nighat Barrios : 1965 Room: [address] Admit date: 10/25/2023 Attending: Yessi Lopes [...] 3.8 CL -- 104 104 CO2 -- 28 27 BUN -- 8* 10 CREATININE -- 0.74* [...] right upper extremity obscuring part of the ypkkk-[id number]-[id number]. Left chest wall subcutaneous port with tip [...] have questions please contact the health home care associate that requested your imaging first. Electronically signed by: Caleb Branch MD, [facility] ([phone]), at 10/29/2023 7:15 AM - CT abdomen [...] Procedure Component Value Units Date/Time Blood culture [[id number]] (Abnormal) Collected: 10/30/23 1255 Lab Status: Preliminary [...] Cocci in clusters seen MRSA PCR Screen ([facility]/CGP/APD/NLH) [[id number]] Collected: 10/29/23 0648 Lab Status: Final result Specimen: Nasopharyngeal Swab Updated: 10/29/23 1320 MRSA Result Negative MRSA Interp -- Methicillin-resistant Staphylococcus aureus (MRSA) is NOT DETECTED The MRSA target DNA sequences (mec and SCC) were not detected within the acceptable ranges using the Xpert MRSA NxG on the GeneXpert Dx System (crowdSPRING). This suggests the absence of MRSA in [...] Verified By:Katherine Early (Electronic Signature) Blood culture [[id number]] Collected: 10/28/23 0922 Lab Status: Preliminary result Specimen: Blood from Foot, Left Updated: 10/30/23 1501 Blood Culture No growth at 2 days. Blood culture [[id number]] Collected: 10/28/23 0910 Lab Status: Preliminary result Specimen: Blood from Hand, Right Updated: 10/30/23 1501 Blood Culture No growth at 2 days. Blood culture [[id number]] Collected: 10/25/23 1050 Lab Status: Final result Specimen: Blood Updated: 10/30/23 1501 Blood Culture No growth at 5 days. Blood culture [[id number]] Collected: 10/25/23 1040 Lab Status: Final result Specimen: Blood Updated: 10/30/23 1501 Blood Culture No growth at 5 days. Urine culture Cystoscopic Urine [[id number]] (Abnormal) (Susceptibility) Collected: 10/25/23912 Lab Status: Final result Specimen: Cystoscopic Urine Updated: 10/28/2348 Urine Culture -- Greater than 50,000 cfu/mL [...] Sensitive Penicillin Sensitive Vancomycin Sensitive Urine culture [[id number]] (Abnormal) (Susceptibility) Collected: 10/24/232056 Lab Status: Final [...] using in critically ill patients. Blood culture [[id number]] (Abnormal) (Susceptibility) Collected: 10/24/232056 Lab Status: Final result Specimen: Blood Updated: 10/31/2334 Blood Culture -- Pseudomonas aeruginosa detected by PCR Isolate saved. If future testing is required, contact the Microbiology Survey [facility]. Gram Stain Aerobic -- Growth detected in [...] to his living situation [facility] the [facility], relationship with his care takers, and [...] this.Called Dr. Molina's office and spoke w/ sales team recruiter 10/30 however did not receive call back. [...] >24hr. WBC normalized. Blood culture from 10/30 11/05 bottles with CoNS. Hemodynamically stable. However, patient's [...] receiving only his 8pm medications. Lauri Jovel ONCOLOGY SOCIAL WORK. * Rosmery Daly MD - 10/30/2023 5:50 [...] BP: (93-157)/(52-89) Respiratory Rate Resp: 22 Resp: [12-29] SpO2 SpO2: (!) 85 % SpO2: [85 [...] tube, nephrolithiasis, [place] [facility] [place] shock [...] follow. Please page ID Dougie team (pager [phone]) with questions or concerns. Marcus Thomas MD Fellow, Infectious Disease Pager: [phone] Epic Chat 10/30/2023 ID ATTENDING I have [...] Note Patient: Nighat Barrios : 1965 Room: [address] Admit date: 10/25/2023 Attending: Yessi Lopes [...] Ext: warm, well perfused Labs: Recent Labs 10/30/23610/29/238 10/28/23 001 WBC 7.5 7.4 8.4 HGB 9.4* 9.4* 9.7* HCT 28.1* 28.2* 28.8* PLATELET 188 150 149 Recent Labs 10/30/23610/29/238 10/28/23 0012 NA 141 141 142 K [...] right upper extremity obscuring part of the [id number]-mu-[id number]. Left chest wall subcutaneous port with tip [...] have questions please contact the health home care associate that requested your imaging first. Electronically signed by: Caleb Branch MD, [facility] ([phone]), at 10/29/2023 7:15 AM - CT abdomen [...] Component Value Units Date/Time MRSA PCR Screen ([facility]/CGP/APD/NL) [[id number]] Collected: 10/29/23 0648 Lab Status: Final result Specimen: Nasopharyngeal Swab Updated: 10/29/23 1320 MRSA Result Negative MRSA Interp -- Methicillin-resistant Staphylococcus aureus (MRSA) is NOT DETECTED The MRSA target DNA sequences (mec and SCC) were not detected within the acceptable ranges using the Xpert MRSA NxG on the GeneXpert Dx System (crowdSPRING). This suggests the absence of MRSA in [...] Verified By:Katherine Early (Electronic Signature) Blood culture [[id number]] Collected: 10/28/23 0922 Lab Status: Preliminary result Specimen: Blood from Foot, Left Updated: 10/29/23 1501 Blood Culture No growth at 1 day. Blood culture [[id number]] Collected: 10/28/23 0910 Lab Status: Preliminary result Specimen: Blood from Hand, Right Updated: 10/29/23 1501 Blood Culture No growth at 1 day. Blood culture [[id number]] Collected: 10/25/23 1050 Lab Status: Preliminary result Specimen: Blood Updated: 10/29/23 1501 Blood Culture No growth at 4 days. Blood culture [[id number]] Collected: 10/25/23 1040 Lab Status: Preliminary result Specimen: Blood Updated: 10/29/23 1501 Blood Culture No growth at 4 days. Urine culture Cystoscopic Urine [[id number]] (Abnormal) (Susceptibility) Collected: 10/25/23 0913 Lab Status: [...] Sensitive Penicillin Sensitive Vancomycin Sensitive Urine culture [[id number]] (Abnormal) (Susceptibility) Collected: 10/24/232056 Lab Status: Final [...] using in critically ill patients. Blood culture [[id number]] (Abnormal) (Susceptibility) Collected: 10/24/232056 Lab Status: Preliminary result Specimen: Blood Updated: 10/28/23805 Blood Culture -- Pseudomonas aeruginosa detected by PCR Isolate saved. If future testing is required, contact the Microbiology Survey [facility]. Gram Stain Aerobic -- Growth detected in [...] to his living situation at the [facility], relationship with his care takers, and assistance getting his motorized wheelchair in working condition. He will need FU URS/cystolitholapaxy for right 7mm UPJ stone, possibly right renal stones, residualbladder stones, which he is aware of. He will likely follow-up with his primary urologist for this.Called Dr. Molina's office and spoke w/ sales team recruiter 10/30. Awaiting call back. Of note, patient [...] Lopes, Urology attending. KAN Ornelas 10/30/2023 [id number] Lauri Callahan RCP - 10/30/2023 12:13 AM ESTSummary: Pt refusing [...] require a change in interfaces. Lauri Jovel ONCOLOGY SOCIAL WORK Vanesa Garcia RN - 10/29/2023 4:15 PM EST OUTCOME EVALUATION NOTE: OUTCOME SUMMARY: A+Ox4, unchanged neuro exam. Tachycardic, 90-110. Weaned from HFNC to RA this morning. Up to chair for about 1.5 hours, upon returning to bed new non- blanchable redness noted on R ischium. Mepilex placed, docent coordinator messaged via secure chat, new wound consult [...] Note Patient: Nighat Barrios : 1965 Room: [address] Admit date: 10/25/2023 Attending: Selma Brian [...] right upper extremity obscuring part of the [id number]-[id number]. Left chest wall subcutaneous port with tip [...] have questions please contact the health home care associate that requested your imaging first. Electronically signed by: Caleb Branch MD, [facility] ([phone]), at 10/29/2023 7:15 AM - CT abdomen [...] Procedure Component Value Units Date/Time Blood culture [[id number]] Collected: 10/25/23 1050 Lab Status: Preliminary result Specimen: Blood Updated: 10/28/23 1502 Blood Culture No growth at 3 days. Blood culture [[id number]] Collected: 10/25/23 1040 Lab Status: Preliminary result Specimen: Blood Updated: 10/28/23 1502 Blood Culture No growth at 3 days. Urine culture Cystoscopic Urine [[id number]] (Abnormal) (Susceptibility) Collected: 10/25/23 0913 Lab Status: [...] Sensitive Penicillin Sensitive Vancomycin Sensitive Urine culture [[id number]] (Abnormal) (Susceptibility) Collected: 10/24/232056 Lab Status: Final [...] using in critically ill patients. Blood culture [[id number]] (Abnormal) (Susceptibility) Collected: 10/24/232056 Lab Status: Preliminary result Specimen: Blood Updated: 10/28/23 0806 Blood Culture -- Pseudomonas aeruginosa detected by PCR Isolate saved. If future testing is required, contact the Microbiology Survey Rodman. Gram Stain Aerobic -- Growth detected in [...] to [facility], relationship with his care takers, and [...] have questions please contact the health home care associate that requested your imaging first. 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 male admitted on 10/25/2023 w/ past medical history quadriplegia s/p fall 10/26/2020, neurogenic bladder/bowel with SP tube and cystostomy who presented to [facility] last night with new agitation, found to have infected obstructing R urolithiasis and transferred for urgent urologic intervention. [employer] [facility] consulted for clinical swallow evaluation. Interval History: [...] Pt was seen today for a follow-up [employer] [facility] visit. Pt is tolerating a regular diet [...] and safe swallowing strategies. Plan: Therapy Frequency ([employer] [facility] Eval): other (see comments) (D/c from speech intervention.) Patient / family are in agreement with treatment plan. Total Minutes (Speech Language Pathology): 10 Thank you for this consult with this patient. Please feel free to page me with any questions or concerns. Kota Street MS, [facility] Pager: [phone] Speech-Language Pathology Inpatient Rehabilitation Department * Ester Edwards PA - 10/28/2023 7:46 AM EST Images from the original note were not included. Urology Progress Note Patient: Nighat Barrios : 1965 Room: [address] Admit date: 10/25/2023 Attending: Selma Brian [...] have questions please contact the health home care associate that requested your imaging first. Electronically signed by: Allen García MD, [facility] ([phone]), at 10/28/2023 3:39 AM Micro: Microbiology Results (Last 30 days) Procedure Component Value Units Date/Time Blood culture [[id number]] Collected: 10/25/23 1050 Lab Status: Preliminary result Specimen: Blood Updated: 10/27/23 1501 Blood Culture No growth at 2 days. Blood culture [[id number]] Collected: 10/25/23 1040 Lab Status: Preliminary result Specimen: Blood Updated: 10/27/23 1501 Blood Culture No growth at 2 days. Urine culture Cystoscopic Urine [[id number]] (Abnormal) (Susceptibility) Collected: 10/25/2313 Lab Status: Final [...] Sensitive Penicillin Sensitive Vancomycin Sensitive Urine culture [[id number]] (Abnormal) (Susceptibility) Collected: 10/24/232056 Lab Status: Final [...] using in critically ill patients. Blood culture [[id number]] (Abnormal) (Susceptibility) Collected: 10/24/232056 Lab Status: Preliminary result Specimen: Blood Updated: 10/28/23805 Blood Culture -- Pseudomonas aeruginosa detected by PCR Isolate saved. If future testing is required, contact the Microbiology Survey [facility]. Gram Stain Aerobic -- Growth detected in [...] to his [facility], relationship with his care takers, and [...] ) - Cultures: - Ucx 10/25 & 12/23 - final report back - Bcx 10/24 with Pseudomonas - still pending - Bcx (2) 10/25 - NGTD PPX: home PPI, SQH, SCDs DISPO: Floor CODE: DNR/DNI KAN [place] 10/28/2023 [id number] * Jorge A Malave MD - 10/28/2023 5:43 AM EST Brief urology note: Notified by international coordinator early this morning the patient had increased [...] that he currently has DNR/DNI paperwork at [facility], however he did not have any of [...] and updatedon change in patient status. * Ten Valentino - 10/28/2023 5:02 AM EST RT Airway [...] have questions please contact the health home care associate that requested your imaging first. Electronically signed by: Allen García MD, [facility] ([phone]), at 10/28/2023 3:39 AM Assessment: received patient on NC at 2 lpm had to increase to 6 lpm started high flow 40/60% started Duo and mucomyst the started cough assist to help with cough Plan: wean high flow wean able may have to go to [facility] if needed do duo neb Q4 mucomyst BID cough assist PRN Ten Valentino * Justus Gramajo MD - 10/28/2023 3:15 [...] Social History: Pt lives in a private residence/nursing home type setting with two caregivers that provide [...] step, and 100% of the time Attention: [facility] Safety awareness: [facility] RASS: 0 Does best with preparation/plan d/t anxiety Vision & Perception: WNL/WFL Communication & Hearing: [facility] Musculoskeletal: H/o right nerve transfers for arm [...] for several weeks. Pt may benefit from [employer] team to assist with anxiety (pt chewed [...] promote upright activity. Anticipate d/c back to nursing home/private living situation with caregiver support once medically [...] hours A cushion is recommended (at least Gaymar unless issued a specialized cushion from rehab [...] of functional outcome. 75 minutes; evaluation Pager: [phone] Maria G Adler OT 10/27/2023 * Bianca [...] 0.9) performed by Selma Brian MD at [facility] OR PRO CYSTOSCOPY, INSERT URETERAL STENT Right 10/25/2023 CYSTO, STENT PLACEMENT (WRVU 2.82) performed by Selma Brian MD at [facility] OR PRO CYSTOSCOPY, REMV CALCULUS, SIMPLE N/A 10/25/2023 CYSTO, REMOVAL OF STENT, FOREIGN BODY OR CALCULUS, SIMPLE (WRVU 2.81) performed by Selma Brian MD at [facility] OR There are no active non-hospital problems to display for this patient. Social History: lives in [place], [place] in a group/private home setting; he [...] Instructed in Brodachair features to allow for lzwi-md-wqyrr and recline for ischial pressure relief every hour for 2 minutes at a minimum and optimally every 20-30 minutes. Assessment: Nighat Roy was seen today for physical therapy evaluation. [...] OUT: 10:05-11:30 Total Time: 85 minutes BIANCA MORRIS, PT Pager: [phone] Physical Therapy Inpatient Rehabilitation Department * Jordana Canchola MD - 10/27/2023 8:45 AM EST Images from the original note were not included. Urology Progress Note Patient: Nighat Barrios : 1965 Room: [address] Admit date: 10/25/2023 Attending: Selma Brian [...] Daily insulin lispro 1-6 Units Subcutaneous Q4H ALDEN [...] 106 CO2 21* 20* 21* BUN 19 23* 26* CREATININE 0.87 0.87 1.04 GLUCOSE 83 [...] Procedure Component Value Units Date/Time Blood culture [[id number]] Collected: 10/25/23 1050 Lab Status: Preliminary result Specimen: Blood Updated: 10/26/23 1501 Blood Culture No growth at 1 day. Blood culture [[id number]] Collected: 10/25/23 1040 Lab Status: Preliminary result Specimen: Blood Updated: 10/26/23 1501 Blood Culture No growth at 1 day. Urine culture Cystoscopic Urine [[id number]] (Abnormal) Collected: 10/25/23 0913 Lab Status: Preliminary result Specimen: Cystoscopic Urine Updated: 10/26/23 1048 Urine Culture -- Greater than 50,000 cfu/mL Pseudomonas aeruginosa Greater than 50,000 cfu/mL Enterococcus faecalis Urine culture [[id number]] Collected: 10/24/232056 Lab Status: Preliminary result Specimen: Urine Updated: 10/26/23 1046 Urine Culture Culture in progress Blood culture [[id number]] (Abnormal) Collected: 10/24/232056 Lab Status: Preliminary result Specimen: Blood Updated: 10/26/23 1227 Blood Culture Pseudomonas aeruginosa detected by PCR Gram Stain Aerobic -- Growth detected in aerobic bottle. Gram Negative Rods seen Results called to and read back by Jose A/P: Nighat Barrios is a 58 y.o. male now 2 Days Post-Op s/p right ureteral stent and bladder stone removal 12/04 to pseudomonas bacteriemia, progressing as expected. Ucx with pseudomonas/Enterococcus, Bcx with pseudomonas. Final sensitivity pending. He is off pressor with down trending fever and WBC curve. We will continue Zosyn for now and narrow antibiotics coverage as appropriate. Care management engaged for safe discharge planning in regards to [facility], relationship with his care takers, and [...] Canchola MD 10/27/2023 [id number] * Zabrina Disla, [employer] [facility] - 10/26/2023 9:49 AM EST Speech Therapy Bedside Swallow Evaluation Patient Profile: Nighat Barrios is a 58 y.o. male admitted on 10/25/2023 w/ past medical history quadriplegia s/p fall 10/26/2020, neurogenic bladder/bowel with SP tube and cystostomy who presented to [facility] last night with new agitation, found to have infected obstructing R urolithiasis and transferred for urgent urologic intervention. [employer] [employer] [facility] consulted for clinical swallow evaluation. Prior Level of Swallow Function: Patient seen by [facility] [facility] [employer] [facility] team during admission in 2019, ultimately d/c [...] glasses Hearing: WFL Current Diet: NPO pending [employer] [employer] [facility]; has consumed PO medications well per RN [...] his phone and tablet, and verbally communicates well.[employer] [facility] will follow for diet tolerance. Diagnosis: functional appearing oropharyngeal swallow Recommendations: Diet: Regular solids, Thin liquids PO medications: whole with sip of liquid Aspiration precautions: Upright position during meals and for at least 30 mins following Pt will require feeding assistance at meal times Excellent oral care Pt will benefit from continued [employer] [employer] [facility] services while hospitalized and Do not anticipate need from [employer] [facility] services in discharge location. Speech Therapy Goals: (To be met by discharge) Pt will tolerate least restrictive diet without evidence of dysphagia / aspiration. Pt / caregiver will be independent with aspiration precautions, diet modifications, and safe swallowing strategies. Plan: Therapy Frequency ([employer] [facility] Eval): 1-3 times/wk Pt./family are in agreement with treatment plan. Total Minutes (Speech Language Pathology): 24 Thank you for this consult with this patient. Please feel free to page me with any questions or concerns. Zabrina Disla MS, [facility] Inpatient Speech Pathologist Pager #[phone] * Lucas Ley MD - 10/26/2023 9:04 AM EST Urology Progress Note Patient: Nighat Barrios : 1965 Room: [place] [address]- Admit date: 10/25/2023 Attending: Dedra Arrington, ID: Nighat Barrios is a 58 y.o. [...] brief note: 58 y.o. male brought from [facility] with presumed urosepsis from obstructing RIGHT ureteral [...] consent. This was discussed with the risk control manager svp marketing & communications at [employer] who stated this was the best process. Selma Brian MD, MS 10/25/2023 6:46 AM Urologic Oncology [facility], [place], [place] telephone operator chief (Urology) and of [facility], [facility] [employer] [facility] at [facility] documented in this encounter H&P Notes * Jameel Joyce MD - 11/06/2023 10:27 AM EST Images from the original note were not included. [facility] Medicine (#[id number]) History and Physical Patient info: Name: Nighat [...] 0.9) performed by Selma Brian MD at [facility] OR PRO CYSTOSCOPY, INSERT URETERAL STENT Right 10/25/2023 CYSTO, STENT PLACEMENT (WRVU 2.82) performed by Selma Brian MD at [facility] OR PRO CYSTOSCOPY, REMV CALCULUS, SIMPLE N/A 10/25/2023 CYSTO, REMOVAL OF STENT, FOREIGN BODY OR CALCULUS, SIMPLE (WRVU 2.81) performed by Selma rBian MD at [facility] OR No family history on [...] 11/05/231999 Site Preparation/Maintenance dressing: dry and intact 11/06/23 06 Dressing change due 11/09/23 11/02/23 1239 Needleless Connector change due 11/08/23 11/05/23 0000 Phlebitis 0-->no symptoms 11/06/23 06 Infiltration 0-->no symptoms 11/06/23 06 Site Signs/Symptoms no redness;no swelling;no warmth;no pain;no streak formation;no palpable cord;no drainage 11/06/23 0600 Number of days: 11 PIV 10/25/23 20 [...] 11/05/23799 Dressing no dressing 11/05/23799 Characteristics scabbed 11/05/23799 Site Care cleansed with chlorhexidine 11/05/23 08 Tolerance no signs/symptoms of discomfort 11/05/23 08 Urine Characteristics yellow 11/05/23799 Irrigation/Flush (mL) 0 (mL) 11/04/23 0814 Urine Output (mL) 75 11/06/23 0350 Net Suprapubic Output (mL) 175 11/04/23 0814 Number of days: 12 Colostomy 10/25/23 1220 (Active) Stoma Appearance [place] appearance;round;pink 11/05/232215 Peristomal Skin intact 11/05/232215 Appliance [...] (porcine) 5,000 Units Subcutaneous Q8H [facility] ### baclofen 20 mg Oral TID ### [...] 108 ANIONGAP 10 9 12 Recent Labs 11/06/23 0100 11/05/23 04111/04/23 1830 CALCIUM 8.8 8.6 8.7 MAGNESIUM 0.81 [...] the last 7068 hours. Endocrine: Recent Labs 11/05/23 0417 TSH 2.87 Recent Labs 10/25/23 0758 HA1C 4.8 Heme: No results for input(s): LDH, HAPTOGLOBIN, URICACID in the last 168 hours. ABG: ABG (Arterial Blood Gas) No results found for: PHART, PO2ART, THG2SBP, APP7EHB Microbiology: Pertinent radiology/diagnostic studies: Specimen Information: Foot, [...] to [facility], relationship with his care takers, and [...] Joyce MD Internal Medicine, PGY - 2 [facility] Medicine #[id number] 11/06/2023 Associated attestation - Maritza Hampton MD [...] of two midnights or is on the [facility] inpatient only procedure list (status C) [...] 0.9) performed by Selma Brian MD at [facility] OR PRO CYSTOSCOPY, INSERT URETERAL STENT Right 10/25/2023 CYSTO, STENT PLACEMENT (WRVU 2.82) performed by Selma Brian MD at [facility] OR PRO CYSTOSCOPY, REMV CALCULUS, SIMPLE N/A 10/25/2023 CYSTO, REMOVAL OF STENT, FOREIGN BODY OR CALCULUS, SIMPLE (WRVU 2.81) performed by Selma Brian MD at [facility] OR Prior To Admission Medications: [...] 2 VENOUS Result Value Ref Range pH Darke 7.37 7.32 - 7.42 pCO2 Drake 44 [...] Procedure Component Value - Date/Time Blood culture [[id number]] Collected: 10/25/23 1050 Lab Status: Preliminary result Specimen: Blood Updated: 10/27/23 1501 Blood Culture No growth at 2 days. Blood culture [[id number]] Collected: 10/25/23 1040 Lab Status: Preliminary result Specimen: Blood Updated: 10/27/23 1501 Blood Culture No growth at 2 days. Urine culture Cystoscopic Urine [[id number]] (Abnormal) (Susceptibility) Collected: 10/25/23 0913 Lab Status: [...] have questions please contact the health home care associate that requested your imaging first. 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 He has a neurogenic bladder that is being managed with indwelling suprapubic cathter. CT scan with obstructing RIGHT ureteral stone and hydro. I discussed the patient's care with the referring ER MD at 10:30pm last night and accepted the patient for urgent transfer. He arrived at [facility] around 6am this morning. I personally reviewed and reviewed with the patient his most recent CT a/p which shows RIGHT hydro and obstructing proximal RIGHT ureteral stone. As per above, this is a life-threatening situation, requiring urgent decompression of the right collecting system. Patient is not oriented and not able to consent himself. DPOA (daughter) could not be reached via multiple attempts using available phone number between 6am and 8am. Thus, will proceed without written or phone consent. SELMA BRIAN MD 10/25/2023 documented in this encounter ED Notes * Norma Gardner RN - 10/25/2023 9:20 AM EST Pt's mother Jennifer Barrios [phone] called for update, received, aware pt to OR at 0800. This copywriter called OR and gave Jennifer's number for update. * Norma Gardner RN - 10/25/2023 7:59 AM EST Pt to OR transported per Anesthesia, Levophed increased. * Norma Gardner RN - 10/25/2023 7:29 AM EST Guzman Kaba SEPARATIONS SCIENTIST MICU at bedside, VS reviewed, MAP trending, [...] who comes to the emergency department from [facility] with an infected renal stone. He is septic and on 15 of Levophed. He received Flagyl,cefepime and vancomycin at 715 last night approximately 12 hours ago at [facility]. He is notable to give any history. He was quite agitated [place] [facility] and was given Haldol and Ativan. He was calm for the [facility] transport crew. He had 4 L of IV fluids in addition to his antibiotics. Urology was at the bedside in the ED and plans to take him to the OR as a be case to decompress hiskidney. We have not been able to reach his DURABLE POWER OF REQUIREMENTS ENGINEER so urology is reaching out to risk-management [...] obstructing renal stone. Patient lives in a nursing home and was noted to be acting differently today with more agitation than his normal baseline which is alert an d oriented and conversant. He was seen at [facility] and found to have an obstructing renal stone with urosepsis. He received vancomycin, cefepime, Flagyl,, 1 mg lorazepam, 4 L of crystalloid and was maintained on approximately 5 ??g per minute of norepinephrine. Report from [facility] patient wascalm and would arouse to stimulus [...] the patient. All Fischer MD Resident 10/25/23 0758 Associated attestation - Cheyanne Lemon MD - [...] - 10/25/2023 5:00 AM EST Sending Facility: [facility] Reason for Transfer: Urosepsis infected kidney stone [...] LPM: blow by Temp: 38.4 Transporting Service: [facility] Time of Departure:0450 ETA: 0545 documented in this encounter Miscellaneous Notes * Plan of Care - Margarita Loomis RN - 11/09/2023 3:09 PM EST [...] for discharge to home with home services. Mary Ellen aware of discharge today with no IV [...] Homecare agency Resp Needs: Home O2 Company: [employer] [employer] Location: Referred to [facility] Coordination, Referred to Home Health Agency Home Health Services: Registered Nurse, Physical Therapy, Occupational Therapy, Home Health Aide Agency Referrals & Follow-up Care: Contact information for follow-up Home Health & Hospice, [place] [address] Transportation: ambulance Wheelchair van/Ambulance? Ambulance Aware of financial cost Functional status prior to admission: Completely Dependent Home Environment: Others in the home: other (see comments) (Patient lives with his 2 care givers Annamarie and Jovanny. They have another client that lives with them as well. There are 2 cats and 2 dogs in the home). Current Living Arrangements: nursing home. Accessibility Concerns:Ramp to enter the home with [...] dogs in the home). Current Living Arrangements: nursing home. Accessibility Concerns: Ramp to enter the home [...] Homecare agency Resp Needs: Home O2 Company: [employer] Location: Referred to [facility] Coordination, Referred to Home Health Agency Home Health Services: Registered Nurse, Physical Therapy, Occupational Therapy, Home Health Aide Agency Referrals: [facility] [place] [address] PHONE: [phone] FAX: [phone] Transportation: ambulance Barriers to discharge: Discharge planning [...] OUTCOME EVALUATION: * Plan of Care - Mragarita Loomis RN - 11/07/2023 6:15 PM EST [...] bed/chair alarm on. * Care Management - Stacy Alexis RN - 11/06/2023 11:38 AM EST [...] dogs in the home). Current Living Arrangements: nursing home. Accessibility Concerns: Ramp to enter the home [...] - IV Access: PICC Location: Referred to [facility] Coordination, Referred to Home Health Agency Details: Home Home Health Services: Registered Nurse, Physical Therapy, Occupational Therapy, Home Health Aide Agency Referrals: [facility] [address] [place] [address] [facility] or [facility] [address] [place] [address] PHONE: [phone] FAX: [phone] [facility] (Resp Supplies) Transportation: ambulance Barriers to discharge: Discharge planning *Home IV antibiotic therapy teach and supply delivery scheduled for Friday 11/03 Plan going forward: Patient is a potential discharge this . He will need an ambulance ride home, [facility] is coming to do the teach today, referral placed to [facility] for potential oxygen needs. Care Management will continue to follow and assist with discharge planning and coordinationof care as indicated. Anticipated Date of Discharge: 11/07/2023 Stacy JARRELL RN Phone: [phone] Pager: [phone] * Care Management - Stacy Alexis RN - 11/06/2023 8:31 AM EST The Patient has been provided a list of Home Health Agencies/DME vendors which serve their preferred geographic area. A letter describing our affiliations was reviewed with them and they were educated about their right to choose where referrals are placed. Provided patient with CMS Star Quality Rating for Home care hand out. Patient requests referral to : [facility] (Resp Supplies) Expected date of discharge: 11/06/2023. Referral routed to the [employer] Founder for matching with agency/vendor and to provide any required information. Stacy JARRELL RN Phone: [phone] Pager: [phone] * Plan of Care - Sal Yanes [...] Asked to see Nighat Barrios by Vanesa oRjas RN for R ischium appers to have [...] chair to 2 hour intervals. Use a SplitSecnd chair cushion beneath patient at all times [...] Clinic. Discussed plan with: RN: Durga - covering RN Please contact ELVI IRBY RN on pager [phone] or the wound care team at [phone] or pager [phone] with skin and wound care concerns or [...] 0.9) performed by Selma Brian MD at [facility] OR PRO CYSTOSCOPY, INSERT URETERAL STENT Right 10/25/2023 CYSTO, STENT PLACEMENT (WRVU 2.82) performed by Selma Brian MD at [facility] OR PRO CYSTOSCOPY, REMV CALCULUS, SIMPLE N/A 10/25/2023 CYSTO, REMOVAL OF STENT, FOREIGN BODY OR CALCULUS, SIMPLE (WRVU 2.81) performed by Selma Brian MD at [facility] OR Vitals: Last value 24hr [...] Logan Escamilla MD Internal Medicine, PGY3 Pager: [phone] Associated attestation - Osman Patton MD - [...] outpatient bronchoscopy is warranted. Osman Patton MD Hospital Medicine 11/05/2023 * Plan of Care - [...] 0.9) performed by Selma Brian MD at [facility] OR PRO CYSTOSCOPY, INSERT URETERAL STENT Right 10/25/2023 CYSTO, STENT PLACEMENT (WRVU 2.82) performed by Selma Brian MD at [facility] OR PRO CYSTOSCOPY, REMV CALCULUS, SIMPLE N/A 10/25/2023 CYSTO, REMOVAL OF STENT, FOREIGN BODY OR CALCULUS, SIMPLE (WRVU 2.81) performed by Selma Brian MD at [facility] OR FamHx: SocHx: Tob: EtOH: Illicits: Vitals: [...] radial pulses intact b/l Skin: warm and Neuro: did not assess Labs: Last 3 [...] Keny Singh MD Internal Medicine, PGY3 Pager: [phone] Associated attestation - Srinivasan Lang MD - [...] pain. * Plan of Care - Bella Gunter, RN - 11/04/2023 6:35 PM EST OUTCOME [...] dogs in the home). Current Living Arrangements: nursing home. Accessibility Concerns: Ramp to enter the home [...] - IV Access: PICC Location: Referred to [place] Coordination, Referred to Home Health Agency Details: Home Home Health Services: Registered Nurse, Physical Therapy, Occupational Therapy, Home Health Aide Agency Referrals: [place] [address] [address] [facility] or [facility] [place] [address] PHONE: [phone] FAX: [phone] Transportation: ambulance Barriers to discharge: Discharge planning *Home IV antibiotic therapy teach and supply delivery scheduled for Friday 11/03 Plan going forward: when able patient will discharge home with his caregivers, [facility] Care Management will continue to follow and assist with discharge planning and coordination of care as indicated. Anticipated Date of Discharge: 11/10/2023 Stacy JARRELL RN Phone: [phone] Pager: [phone] * Plan of Care - Michael Segovia [...] Q shift neuro Goals of care/plan meeting 11/03? * Consult Note - Jeronimo Lin MD [...] 2 days of cefepime prior to that Lycynthiaa Senna Allergies: Allergies Allergen Reactions Hydromorphone Other [...] MD, PhD Pulmonary/Critical Care Staff Physician Pager: [phone] * Plan of Care - Michael Segovia [...] difficulty breathing, placed on HFNC 40L 100%, paged. 2 bowel movements per rectum, md aware. Able to wean back to HFNC 45 L 50%. Denies pain, PRN ativan and tylenol given. 15 mmol sodium phos given. PLAN MOVING FORWARD: MAP >65 * Plan of Care - Lawrence Juares RN - 11/01/2023 5:16 PM EST OUTCOME EVALUATION [...] Goal: Absence of Hospital-Acquired Illness or Injury 11/01/2023540 by Chrissy Genao RN Outcome: Ongoing (Interventions Implemented as Appropriate) Goal: Optimal Comfort and Wellbeing 11/01/2023540 by Chrissy Genao RN Outcome: Ongoing (Interventions Implemented as Appropriate) Goal: Readiness for Transition of Care 11/01/2023540 by Chrissy Genao RN Outcome: Ongoing [...] Goal: Absence of Infection Signs and Symptoms 11/01/2023 05 by Chrisys Genao RN Outcome: Ongoing (Interventions Implemented as [...] dogs in the home). Current Living Arrangements: nursing home. Accessibility Concerns: Ramp to enter the home [...] - IV Access: PICC Location: Referred to [facility] Coordination, Referred to Home Health Agency Details: Home Home Health Services: Registered Nurse, Physical Therapy, Occupational Therapy, Home Health Aide Agency Referrals: [facility] [address] [place] [address] [facility] or [facility] [address] [facility] [address] PHONE: [phone] FAX: [phone] Transportation: ambulance Barriers to discharge: Discharge planning [...] flaccid BLE. Ativan requested at 0830, 1430, [id number]. He reports having better sleep at night [...] as Appropriate) * Care Management - Stacy lAexis RN - 10/30/2023 12:57 PM EST The Patient has been provided a list of Home Health Agencies/DME vendors which serve their preferred geographic area. A letter describing our affiliations was reviewed with them and they were educated about their right to choose where referrals are placed. Provided patient with [facility] Star Quality Rating for Home care hand out. Patient requests referral to : [address] or Expected date of discharge: 11/01/2023. Referral routed to the [employer] F[employer] for matching with agency/vendor and to provide any required information. Stacy JARRELL RN Phone: [phone] Pager: [phone] * Plan of Care - Saad Foy [...] [direct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 Narrative Resulting Agency Comment Spec In Lab Yessi Lopes MD CHEMISTRY ORDER LORNA [facility] [place] [address] * (ABNORMAL) Basic Metabolic Panel (non-fasting) (11/05/2023 4:17 AM EST) Glucose 126 65 - 199 mg/dL [facility] Comment:Diabetes: >=200 mg/d L plus symptoms Blood Urea Nitrogen 8(L) 10 - 20 mg/dL [facility] Creatinine 0.57(L) 0.80 - 1.50 mg/dL [facility] Sodium 141 135 - 145 mmol/L [facility] Potassium 3.5 3.5 - 5.0 mmol/L [facility] Comment: Please note: ??Patients with WBC >100,000 may have falsely elevated Potassium levels. ??For accurate Potassium quantification in these patients send serum separator tube (gold top) for subsequent determinations. ??Contact the Clinical Chemistry Laboratory if there are any questions. Chloride 105 98 - 107 mmol/L [facility] Carbon Dioxide 27 22 - 31 mmol/L [facility] Anion Gap 9 5 - 15 mmol/L [facility] Calcium 8.6 8.5 - 10.5 mg/dL [facility] Est Glomerular Filtration Rate 115 >=60 mL/min/1. 73 m?? [facility] Comment: This patient's estimated GFR was [...] MD CHEMISTRY ORDERABL ES Performing Organization Address City/[facility] Co de Phone Number [facility] [place] [address] * Phosphorus (11/05/2023 4:17 AM EST) Phosphorus 2.9 2.5 - 4.5 mg/dL [facility] Blood 11/05/2023 4:17 AM EST 11/05/2023 4:38 AM EST Narrative Resulting Agency Comment Spec In Lab Selma Brian MD CHEMISTRY ORDERABL ES Performing Organization Address City/[facility]/ZIP Co de Phone Number [facility] [place] [address] * Magnesium (11/05/2023 4:17 AM EST) Magnesium 0.90 0.69 - 1.07 mmol/L [facility] Blood 11/05/2023 4:17 AM EST 11/05/2023 4:38 AM EST Narrative Resulting Agency Comment Spec In Lab Selma Brian MD CHEMISTRY ORDERABL ES Performing Organization Address City/[facility]/ZIP Co de Phone Number [facility] [place] [address] * TSH [place] (11/05/2023 4:17 AM EST) Thyroid Stimulating Hormone 2.87 0.27 - 4.20 mcIU/mL [facility] Comment: Reference Interval (mcIU/mL): Females: ??First Trimester: 0.23-3.88 ??Second Trimester: 0.22-3.90 ??Third Trimester: 0.44-4.66 Blood 11/05/2023 4:17 AM EST 11/05/2023 4:38 AM EST Narrative Resulting Agency Comment Spec In Lab Yessi Lopes MD CHEMISTRY ORDER LORNA Performing Organization Address [facility] Co de Phone Number [facility] [place] [address] * (ABNORMAL) Troponin (11/04/2023 11:50 PM EST) Troponin-T, High Sensitivity 72(H) <=22 ng/L [facility] Comment: This patient's troponin T concentration [...] can be found in the [facility] Test Catalog Troponin - [facility] Test Catalog Reference: Fourth [place] Definition of Myocardial Infarction. Journal of the [employer] 2018;72:[id number] Blood 11/04/2023 11:5 0 PM EST 11/04/2023 11:54 PM EST Narrative Resulting Agency Comment Spec In Lab Yessi Lopes MD CHEMISTRY ORDER LORNA [facility] [place] [address] * XR Chest One View (11/04/2023 6:55 [...] have questions please contact the health home care associate that requested your imaging first. ? Narrative 11/04/2023 7:14 PM EST EXAMINATION: XR [...] No acute osseous abnormality. Procedure Note Yoel Galaviz MD - 11/04/2023 EXAMINATION: XR CHEST ONE [...] who have questions please contactthe health home care associate that requested your imaging first. Electronically signed by: Yoel Galaviz MD, [facility]([phone]), at 11/04/2023 7:14 PM Yessi Lopes MD IMG DX ORDERABL ES * (ABNORMAL) BLOOD GAS 2 VENOUS (11/04/2023 6:42 PM EST) pH, Venous 7.42 7.32 - 7.42 [facility] PCO2, Venous 40(L) 41 - 51 mmHg [facility] PO2, Venous 61(H) 25 - 40 mmHg [facility] Bicarbonate, Venous 25.7 mmol/L [facility] Base Excess, Venous 1.3 mmol/L [facility] Hgb Blood Gas 10.1(L) 13.7 - 16.5 g/dL [facility] Oxyhemoglobin, Venous 90.4 % [facility] Carboxyhemoglob in, Venous 0.2 % [facility] Comment: Nonsmokers: 0.5-1.5% COHB Smokers: Variable, but usually less than 10% Toxic: 20-30% COHB Lethal: Greater than 60% COHB Methemoglobin, Venous 0.4 <=1.5 % [facility] Na Whole Blood 138 135 - 145 mmol/L [facility] K Whole Blood 3.6 3.5 - 5.0 mmol/L [facility] Comment: Please note: Patients with WBC >100,000 may have falsely elevated Potassium levels. Contact the Clinical Chemistry Laboratory if there are any questions. ICa Whole Blood 1.20 1.15 - 1.33 mmol/L [facility] Comment: Note: ??Total bilirubin higher than 20 mg/dL may lead to falsely low ionized calcium. CL Whole Blood 105 98 - 107 mmol/L [facility] Gluc Whole Bld 116 65 - 199 mg/dL [facility] Comment:Diabetes: >=200 mg/d L plus symptoms Lactate WB 1.3 0.5 - 2.2 mmol/L [facility] Flow, Drake 6.0 LPM [facility] Blood Gas Source Venous [facility] Blood 11/04/2023 6:42 PM EST 11/04/2023 6:42 PM EST Yessi Lopes MD POINT OF CARE T EST ORDERABLES [facility] [place] [address] * (ABNORMAL) Troponin (11/04/2023 6:30 PM EST) Troponin-T, High Sensitivity 60(H) <=22 ng/L [facility] Comment: This patient's troponin T concentration [...] can be found in the [facility] Test Catalog Troponin - [facility] Test Catalog Reference: Fourth [place] Definition of Myocardial Infarction. Journal of the [employer] [employer] 2018;72:[id number] Blood 11/04/2023 6:30 PM EST 11/04/2023 7:06 PM EST Narrative Resulting Agency Comment Spec In Lab Yessi oLpes MD CHEMISTRY ORDER LORNA [facility] [place] [address] * (ABNORMAL) Differential, Automated (11/04/2023 6:30 PM EST) Neutrophil % 81.4 % [facility] Neutrophil Absolute 8.48(H) 1.70 - 6.10 x10(3)/mc L [facility] Lymph % 11.0 % [facility] Lymphocytes Abs 1.1 0.9 - 3.2 x10(3)/mc L [facility] Monocyte % 5.1 % [facility] Monocyte Abs 0.5 0.3 - 0.9 x10(3)/mc L [facility] Eos % 2.0 % [facility] Eosinophils Abs 0.2 0.0 - 0.4 x10(3)/mc L [facility] Basophil % 0.2 % [facility] Baso Absolute 0.0 0.0 - 0.1 x10(3)/mc L [facility] Immature Gran % 0.30 % [facility] Comment: Immature granulocytes(IG's)percentage and absolute count will include metamyelocytes, myelocytes, and promyelocytes. Blood smears from CBCs yielding IG's will be scanned manually for concordance. If this scan disagrees with the automated IG or if promyelocytes are noted, a manual differential will be performed. Immature Gran Absolute 0.03 0.00 - 0.04 x10(3)/ L [facility] Blood 11/04/2023 6:30 PM EST 11/04/2023 6:36 PM EST Narrative Resulting Agency Comment Spec In Lab Jose Machado MD HEMATOLOGY ORDER LORNA Performing Organization Address City/State/[facility] Co de Phone Number [facility] [place] [address] * (ABNORMAL) Hemogram (11/04/2023 6:30 PM EST) White Blood Cell 10.4(H) 4.0 - 9.5 x10(3)/[facility] Red Blood Cell 2.93(L) 4.58 - 5.54 x10(6)/[facility] Hemoglobin 8.8(L) 13.7 - 16.5 g/dL [facility] Hematocrit 26.7(L) 40.5 - 48.5 % [facility] Mean Cell Volume 91.1 82.9 - 93.1 fL [facility] Mean Cell Hemoglobin 30.0 27.5 - 32.1 pg [facility] Mean Cell Hemoglobin Concentration 33.0 32.0 - 35.7 g/dL [facility] Platelet 393(H) 145 - 357 x10(3)/[facility] RDW Standard Deviation 44.7 36.0 - 45.0 fL [facility] RDW coefficient of variation 13.6 11.4 - 13.8 % [facility] Mean Platelet Volume 10.0 7.6 - 12.9 fL [facility] NRBC% auto 0.0 % [facility] NRBC Absolute 0.000 0.000 - 0.000 x10(3)/mc L [facility] Blood 11/04/2023 6:30 PM EST 11/04/2023 6:36 PM EST Narrative Resulting Agency Comment Spec In Lab Jose Machado MD HEMATOLOGY ORDER LORNA [facility] [place] [address] * Lactate, whole blood, send to lab ([facility]) (11/04/2023 6:30 PM EST) Lactate WB 1.4 0.5 - 2.2 mmol/L [facility] Blood 11/04/2023 6:30 PM EST 11/04/2023 6:36 PM EST Narrative Resulting Agency Comment Spec In Lab Yessi Lopes MD CHEMISTRY ORDER LORNA [facility] [place] [address] * Phosphorus (11/04/2023 6:30 PM EST) Phosphorus 2.6 2.5 - 4.5 mg/dL [facility] Blood 11/04/2023 6:30 PM EST 11/04/2023 6:36 PM EST Narrative Resulting Agency Comment Spec In Lab Yessi Lopes MD CHEMISTRY ORDER LORNA [facility] [place] [address] * Magnesium (11/04/2023 6:30 PM EST) Magnesium 0.76 0.69 - 1.07 mmol/L [facility] Blood 11/04/2023 6:30 PM EST 11/04/2023 6:36 PM EST Narrative Resulting Agency Comment Spec In Lab Yessi Lopes MD CHEMISTRY ORDER LORNA [facility] [place] [address] * (ABNORMAL) Basic Metabolic Panel (non-fasting) (11/04/2023 6:30 PM EST) Glucose 108 65 - 199 mg/dL [facility] Comment:Diabetes: >=200 mg/d L plus symptoms Blood Urea Nitrogen 8(L) 10 - 20 mg/dL [facility] Creatinine 0.59(L) 0.80 - 1.50 mg/dL [facility] Sodium 142 135 - 145 mmol/L [facility] Potassium 3.9 3.5 - 5.0 mmol/L [facility] Comment: Please note: ??Patients with WBC >100,000 may have falsely elevated Potassium levels. ??For accurate Potassium quantification in these patients send serum separator tube (gold top) for subsequent determinations. ??Contact the Clinical Chemistry Laboratory if there are any questions. Chloride 107 98 - 107 mmol/L [facility] Carbon Dioxide 23 22 - 31 mmol/L [facility] Anion Gap 12 5 - 15 mmol/L [facility] Calcium 8.7 8.5 - 10.5 mg/dL [facility] Est Glomerular Filtration Rate 114 >=60 mL/min/1. 73 m?? [facility] Comment: This patient's estimated GFR was [...] MD CHEMISTRY ORDER LORNA Performing Organization Address City/[facility]/ZIP Co de Phone Number [facility] [place] [address] * EKG 12 Lead (11/04/2023 6:20 PM EST) Ventricular rate 77 BPM MUSE SYSTEM Atrial Rate 77 BPM MUSE SYSTEM P-R Interval 148 ms MUSE SYSTEM QRS Duration 94 ms MUSE SYSTEM Q-T Interval 418 ms MUSE SYSTEM QTC Calculated (Bezet) 473 ms MUSE SYSTEM Calculated P [place] 79 degrees MUSE SYSTEM Calculated R [place] 23 degrees MUSE SYSTEM Calculated T [place] 71 degrees MUSE SYSTEM INTERPRETATION Normal sinus rhythm Incomplete right bundle branch block Borderline ECG When compared with ECG of 01-NOV-2023 13:44, Non-specific change in ST segment in Anterior leads Nonspecific T wave abnormality no longer evident in Anterior leads Confirmed by MD Yumiko, Jeff Hopkins ([id number]) on 11/06/2023 3:01:32 PM MUSE SYSTEM 11/04/2023 6:20 PM EST 11/06/2023 3:01 PM EST Yessi Lopes MD ECG ORDERABLES Performing Organization Address City/[facility]/ZIP Co de Phone Number MUSE SYSTEM * (ABNORMAL) Differential, Automated (11/04/2023 1:55 AM EST) Pathologist [facility] Neutrophil % 73.5 % [facility] Neutrophil Absolute 7.14(H) 1.70 - 6.10 x10(3)/mc L [facility] Lymph % 16.8 % [facility] [facility] Lymphocytes Abs 1.6 0.9 - 3.2 x10(3)/mc L [facility] Monocyte % 6.8 % [facility] Monocyte Abs 0.7 0.3 - 0.9 x10(3)/mc L [facility] Eos % 2.0 % [facility] Eosinophils Abs 0.2 0.0 - 0.4 x10(3)/mc L [facility] Basophil % 0.1 % [facility] Baso Absolute 0.0 0.0 - 0.1 x10(3)/mc L [facility] Immature Gran % 0.80 % [facility] Comment: Immature granulocytes(IG's)percentage and absolute count will include metamyelocytes, myelocytes, and promyelocytes. Blood smears from CBCs yielding IG's will be scanned manually for concordance. If this scan disagrees with the automated IG or if promyelocytes are noted, a manual differential will be performed. Immature Gran Absolute 0.08(H) 0.00 - 0.04 x10(3)/mc L [facility] Blood 11/04/2023 1:55 AM EST 11/04/2023 2:01 AM EST Narrative Resulting Agency Comment Spec In Lab Monty OMER HEMATOLOGY ORDERABLE S [facility] [place] [address] * (ABNORMAL) Hemogram (11/04/2023 1:55 AM EST) White Blood Cell 9.7(H) 4.0 - 9.5 x10(3)/mc L [facility] Red Blood Cell 2.91(L) 4.58 - 5.54 x10(6)/mc L [facility] Hemoglobin 8.7(L) 13.7 - 16.5 g/dL [facility] Hematocrit 26.3(L) 40.5 - 48.5 % [facility] Mean Cell Volume 90.4 82.9 - 93.1 fL [facility] Mean Cell Hemoglobin 29.9 27.5 - 32.1 pg [facility] Mean Cell Hemoglobin Concentration 33.1 32.0 - 35.7 g/dL [facility] Platelet 363(H) 145 - 357 x10(3)/mc L [facility] RDW Standard Deviation 45.6(H) 36.0 - 45.0 fL [facility] RDW coefficient of variation 13.8 11.4 - 13.8 % [facility] Mean Platelet Volume 9.9 7.6 - 12.9 fL [facility] NRBC% auto 0.0 % [facility] NRBC Absolute 0.000 0.000 - 0.000 x10(3)/mc L [facility] Blood 11/04/2023 1:55 AM EST 11/04/2023 2:01 AM EST Narrative Resulting Agency Comment Spec In Lab Monty OMER HEMATOLOGY ORDERABLE S [facility] [place] [address] * (ABNORMAL) Basic Metabolic Panel (non-fasting) (11/04/2023 1:55 AM EST) Glucose 98 65 - 199 mg/dL [facility] Comment:Diabetes: >=200 mg/d L plus symptoms Blood Urea Nitrogen 8(L) 10 - 20 mg/dL [facility] Creatinine 0.60(L) 0.80 - 1.50 mg/dL [facility] Sodium 143 135 - 145 mmol/L [facility] Potassium 3.7 3.5 - 5.0 mmol/L [facility] Comment: Please note: ??Patients with WBC >100,000 may have falsely elevated Potassium levels. ??For accurate Potassium quantification in these patients send serum separator tube (gold top) for subsequent determinations. ??Contact the Clinical Chemistry Laboratory if there are any questions. Chloride 107 98 - 107 mmol/L [facility] Carbon Dioxide 26 22 - 31 mmol/L [facility] Anion Gap 10 5 - 15 mmol/L [facility] Calcium 8.7 8.5 - 10.5 mg/dL [facility] Est Glomerular Filtration Rate 113 >=60 mL/min/1. 73 m?? [facility] Comment: This patient's estimated GFR was [...] MD CHEMISTRY ORDERABL ES Performing Organization Address [facility] Co de Phone Number [facility] [place] [address] * Phosphorus (11/04/2023 1:55 AM EST) Pathologist [facility] Phosphorus 2.9 2.5 - 4.5 mg/dL [facility] Blood 11/04/2023 1:55 AM EST 11/04/2023 2:01 AM EST Narrative Resulting Agency Comment Spec In Lab Selma Brian MD CHEMISTRY ORDERABL ES Performing Organization Address [facility] Co de Phone Number [facility] [place] [address] * Magnesium (11/04/2023 1:55 AM EST) Pathologist [facility] Magnesium 0.78 0.69 - 1.07 mmol/L [facility] Blood 11/04/2023 1:55 AM EST 11/04/2023 2:01 AM EST Narrative Resulting Agency Comment Spec In Lab Selma Brian MD CHEMISTRY ORDERABL ES Performing Organization Address [facility] de Phone Number [facility] [place] [address] * (ABNORMAL) Differential, Automated (11/03/2023 1:15 AM EST) Pathologist [facility] Neutrophil % 75.0 % [facility] Neutrophil Absolute 7.54(H) 1.70 - 6.10 x10(3)/mc L [facility] Lymph % 15.7 % [facility] Lymphocytes Abs 1.6 0.9 - 3.2 x10(3)/mc L [facility] Monocyte % 6.5 % [facility] Monocyte Abs 0.6 0.3 - 0.9 x10(3)/mc L [facility] Eos % 1.9 % [facility] Eosinophils Abs 0.2 0.0 - 0.4 x10(3)/mc L [facility] Basophil % 0.2 % [facility] Baso Absolute 0.0 0.0 - 0.1 x10(3)/mc L [facility] Immature Gran % 0.70 % [facility] Comment: Immature granulocytes(IG's)percentage and absolute count will include metamyelocytes, myelocytes, and promyelocytes. Blood smears from CBCs yielding IG's will be scanned manually for concordance. If this scan disagrees with the automated IG or if promyelocytes are noted, a manual differential will be performed. Immature Gran Absolute 0.07(H) 0.00 - 0.04 x10(3)/mc L [facility] Blood 11/03/2023 1:15 AM EST 11/03/2023 1:25 AM EST Narrative Resulting Agency Comment Spec In Lab Monty OMER HEMATOLOGY ORDERABLE S Performing Organization Address City/State/[facility] Co de Phone Number [facility] [place] [address] * (ABNORMAL) Hemogram (11/03/2023 1:15 AM EST) White Blood Cell 10.0(H) 4.0 - 9.5 x10(3)/mc L [facility] Red Blood Cell 3.01(L) 4.58 - 5.54 x10(6)/mc L [facility] Hemoglobin 8.7(L) 13.7 - 16.5 g/dL [facility] Hematocrit 27.0(L) 40.5 - 48.5 % [facility] Mean Cell Volume 89.7 82.9 - 93.1 fL [facility] Mean Cell Hemoglobin 28.9 27.5 - 32.1 pg [facility] Mean Cell Hemoglobin Concentration 32.2 32.0 - 35.7 g/dL [facility] Platelet 331 145 - 357 x10(3)/mc L [facility] RDW Standard Deviation 45.6(H) 36.0 - 45.0 fL [facility] RDW coefficient of variation 13.9(H) 11.4 - 13.8 % [facility] Mean Platelet Volume 9.6 7.6 - 12.9 fL [facility] NRBC% auto 0.0 % [facility] NRBC Absolute 0.000 0.000 - 0.000 x10(3)/mc L [facility] Blood 11/03/2023 1:15 AM EST 11/03/2023 1:25 AM EST Narrative Resulting Agency Comment Spec In Lab Monty OMER HEMATOLOGY ORDERABLE S [facility] [place] [address] * (ABNORMAL) Basic Metabolic Panel (non-fasting) (11/03/2023 1:15 AM EST) Glucose 105 65 - 199 mg/dL [facility] Comment:Diabetes: >=200 mg/d L plus symptoms Blood Urea Nitrogen 6(L) 10 - 20 mg/dL [facility] Creatinine 0.59(L) 0.80 - 1.50 mg/dL [facility] Sodium 140 135 - 145 mmol/L [facility] Potassium 3.8 3.5 - 5.0 mmol/L [facility] Comment: Please note: ??Patients with WBC >100,000 may have falsely elevated Potassium levels. ??For accurate Potassium quantification in these patients send serum separator tube (gold top) for subsequent determinations. ??Contact the Clinical Chemistry Laboratory if there are any questions. Chloride 104 98 - 107 mmol/L [facility] Carbon Dioxide 26 22 - 31 mmol/L [facility] Anion Gap 10 5 - 15 mmol/L [facility] Calcium 8.7 8.5 - 10.5 mg/dL [facility] Est Glomerular Filtration Rate 114 >=60 mL/min/1. 73 m?? [facility] Comment: This patient's estimated GFR was [...] MD CHEMISTRY ORDERABL ES Performing Organization Address [facility] de Phone Number [facility] [place] [address] * Phosphorus (11/03/2023 1:15 AM EST) Phosphorus 2.9 2.5 - 4.5 mg/dL [facility] Blood 11/03/2023 1:15 AM EST 11/03/2023 1:25 AM EST Narrative Resulting Agency Comment Spec In Lab Selma Brian MD CHEMISTRY ORDERABL ES Performing Organization Address [facility] Phone Number [facility] [place] [address] * Magnesium (11/03/2023 1:15 AM EST) Pathologist [facility] Magnesium 0.85 0.69 - 1.07 mmol/L [facility] Blood 11/03/2023 1:15 AM EST 11/03/2023 1:25 AM EST Narrative Resulting Agency Comment Spec In Lab Selma Brian MD CHEMISTRY ORDERABL ES Performing Organization Address [facility] Phone Number [facility] [place] [address] * (ABNORMAL) Differential, Automated (11/02/2023 12:45 AM EST) Neutrophil % 79.7 % [facility] Neutrophil Absolute 8.12(H) 1.70 - 6.10 x10(3)/mc L [facility] Lymph % 12.6 % [facility] Lymphocytes Abs 1.3 0.9 - 3.2 x10(3)/mc L [facility] Monocyte % 5.8 % [facility] Monocyte Abs 0.6 0.3 - 0.9 x10(3)/mc L [facility] Eos % 1.1 % [facility] Eosinophils Abs 0.1 0.0 - 0.4 x10(3)/mc L [facility] Basophil % 0.2 % [facility] Baso Absolute 0.0 0.0 - 0.1 x10(3)/mc L [facility] Immature Gran % 0.60 % [facility] Comment: Immature granulocytes(IG's)percentage and absolute count will include metamyelocytes, myelocytes, and promyelocytes. Blood smears from CBCs yielding IG's will be scanned manually for concordance. If this scan disagrees with the automated IG or if promyelocytes are noted, a manual differential will be performed. Immature Gran Absolute 0.06(H) 0.00 - 0.04 x10(3)/ L [facility] Blood 11/02/2023 12:4 5 AM EST 11/02/2023 12:50 AM EST Narrative Resulting Agency Comment Spec In Lab Monty OMER HEMATOLOGY ORDERABLE S Performing Organization Address City/State/[facility] Co de Phone Number [facility] [place] [address] * (ABNORMAL) Hemogram (11/02/2023 12:45 AM EST) White Blood Cell 10.2(H) 4.0 - 9.5 x10(3)/mc L [facility] Red Blood Cell 2.96(L) 4.58 - 5.54 x10(6)/mc L [facility] Hemoglobin 8.8(L) 13.7 - 16.5 g/dL [facility] Hematocrit 26.6(L) 40.5 - 48.5 % [facility] Mean Cell Volume 89.9 82.9 - 93.1 fL [facility] Mean Cell Hemoglobin 29.7 27.5 - 32.1 pg [facility] Mean Cell Hemoglobin Concentration 33.1 32.0 - 35.7 g/dL [facility] Platelet 316 145 - 357 x10(3)/mc L [facility] RDW Standard Deviation 46.0(H) 36.0 - 45.0 fL [facility] RDW coefficient of variation 13.9(H) 11.4 - 13.8 % [facility] Mean Platelet Volume 9.9 7.6 - 12.9 fL [facility] NRBC% auto 0.0 % [facility] NRBC Absolute 0.000 0.000 - 0.000 x10(3)/mc L [facility] Blood 11/02/2023 12:4 5 AM EST 11/02/2023 12:50 AM EST Narrative Resulting Agency Comment Spec In Lab Monty OMER HEMATOLOGY ORDERABLE S [facility] [place] [address] * (ABNORMAL) Basic Metabolic Panel (non-fasting) (11/02/2023 12:45 AM EST) Glucose 146 65 - 199 mg/dL [facility] Comment:Diabetes: >=200 mg/d L plus symptoms Blood Urea Nitrogen 7(L) 10 - 20 mg/dL [facility] Creatinine 0.67(L) 0.80 - 1.50 mg/dL [facility] Sodium 139 135 - 145 mmol/L [facility] Potassium 3.9 3.5 - 5.0 mmol/L [facility] Comment: Please note: ??Patients with WBC >100,000 may have falsely elevated Potassium levels. ??For accurate Potassium quantification in these patients send serum separator tube (gold top) for subsequent determinations. ??Contact the Clinical Chemistry Laboratory if there are any questions. Chloride 103 98 - 107 mmol/L [facility] Carbon Dioxide 27 22 - 31 mmol/L [facility] Anion Gap 9 5 - 15 mmol/L [facility] Calcium 8.2(L) 8.5 - 10.5 mg/dL [facility] Est Glomerular Filtration Rate 110 >=60 mL/min/1. 73 m?? [facility] Comment: This patient's estimated GFR was [...] MD CHEMISTRY ORDERABL ES Performing Organization Address [facility] Co de Phone Number [facility] [place] [address] * (ABNORMAL) Phosphorus (11/02/2023 12:45 AM EST) Phosphorus 2.4(L) 2.5 - 4.5 mg/dL [facility] Blood 11/02/2023 12:4 5 AM EST 11/02/2023 12:50 AM EST Narrative Resulting Agency Comment Spec In Lab Selma Brian MD CHEMISTRY ORDERABL ES Performing Organization Address [facility] Co de Phone Number [facility] [place] [address] * Magnesium (11/02/2023 12:45 AM EST) Magnesium 0.88 0.69 - 1.07 mmol/L [facility] Blood 11/02/2023 12:4 5 AM EST 11/02/2023 12:50 AM EST Narrative Resulting Agency Comment Spec In Lab Selma Brian MD CHEMISTRY ORDERABL ES Performing Organization Address [facility] de Phone Number [facility] [place] [address] * POCT Glucose (11/01/2023 7:51 PM EST) Glucose, POC 129 65 - 199 mg/dL [facility] Comment: Supplemental ranges: <140 mg/dL before meals <180 mg/dL all other times of the day Blood 11/01/2023 7:51 PM EST 11/01/2023 7:51 PM EST Yessi Lopes MD POINT OF CARE T EST ORDERABLES Performing Organization Address City/[facility]/ZIP Co de Phone Number [facility] [place] [address] * Lactate, whole blood, send to lab ([facility]) (11/01/2023 4:09 PM EST) Lactate WB 0.8 0.5 - 2.2 mmol/L [facility] Blood 11/01/2023 4:09 PM EST 11/01/2023 4:15 PM EST Narrative Resulting Agency Comment Spec In Lab Yessi Lopes MD CHEMISTRY ORDER LRONA Performing Organization Address City/[facility]/ZIP Co de Phone Number [facility] [place] [address] * (ABNORMAL) Troponin (11/01/2023 4:09 PM EST) Troponin-T, High Sensitivity 60(H) <=22 ng/L [facility] Comment: This patient's troponin T concentration [...] can be found in the [facility] Test Catalog Troponin - [facility] Test Catalog Reference: Fourth [employer] Definition of Myocardial Infarction. Journal of the [employer] 2018;72:4348-9224 Blood 11/01/2023 4:09 PM EST 11/01/2023 4:16 PM EST Narrative Resulting Agency Comment Spec In Lab Yessi Lopes MD CHEMISTRY ORDER LORNA Performing Organization Address City/[facility]/[place] [address] * Blood culture (11/01/2023 2:30 PM EST) Blood Culture No growth at 5 days. [facility] Blood STRUCTURE OF LEFT FOOT / Unknown 11/01/2023 2:30 PM EST 11/01/2023 3:03 PM EST Comment:#2 Narrative Resulting Agency Comment Spec In Lab Yessi Lopes MD MICROBIOLOGY - BLOOD ORDERABLES Performing Organization Address [facility] [place] [address] * (ABNORMAL) Differential, Automated (11/01/2023 2:20 PM EST) Neutrophil % 77.2 % [facility] Neutrophil Absolute 7.42(H) 1.70 - 6.10 x10(3)/mc L [facility] Lymph % 14.2 % [facility] Lymphocytes Abs 1.4 0.9 - 3.2 x10(3)/mc L [facility] Monocyte % 5.7 % [facility] Monocyte Abs 0.6 0.3 - 0.9 x10(3)/mc L [facility] Eos % 2.2 % [facility] Eosinophils Abs 0.2 0.0 - 0.4 x10(3)/mc L [facility] Basophil % 0.2 % [facility] Baso Absolute 0.0 0.0 - 0.1 x10(3)/mc L [facility] Immature Gran % 0.50 % [facility] Comment: Immature granulocytes(IG's)percentage and absolute count will include metamyelocytes, myelocytes, and promyelocytes. Blood smears from CBCs yielding IG's will be scanned manually for concordance. If this scan disagrees with the automated IG or if promyelocytes are noted, a manual differential will be performed. Immature Gran Absolute 0.05(H) 0.00 - 0.04 x10(3)/mc L [facility] Blood 11/01/2023 2:20 PM EST 11/01/2023 2:30 PM EST Narrative Resulting Agency Comment Spec In Lab Krystal Ortiz MD HEMATOLOGY ORDERAB LES [facility] [place] [address] * (ABNORMAL) Hemogram (11/01/2023 2:20 PM EST) White Blood Cell 9.6(H) 4.0 - 9.5 x10(3)/ L [facility] Red Blood Cell 3.22(L) 4.58 - 5.54 x10(6)/ L [facility] Hemoglobin 9.5(L) 13.7 - 16.5 g/dL [facility] Hematocrit 28.8(L) 40.5 - 48.5 % [facility] Mean Cell Volume 89.4 82.9 - 93.1 fL [facility] Mean Cell Hemoglobin 29.5 27.5 - 32.1 pg [facility] Mean Cell Hemoglobin Concentration 33.0 32.0 - 35.7 g/dL [facility] Platelet 281 145 - 357 x10(3)/mc L [facility] RDW Standard Deviation 45.7(H) 36.0 - 45.0 fL [facility] RDW coefficient of variation 14.0(H) 11.4 - 13.8 % [facility] Mean Platelet Volume 9.9 7.6 - 12.9 fL [facility] NRBC% auto 0.0 % [facility] NRBC Absolute 0.000 0.000 - 0.000 x10(3)/ L [facility] Blood 11/01/2023 2:20 PM EST 11/01/2023 2:30 PM EST Narrative Resulting Agency Comment Spec In Lab Krystal Ortiz MD HEMATOLOGY ORDERAB LES Performing Organization Address City/[facility]/ZIP Co de Phone Number [facility] [place] [address] * Blood culture (11/01/2023 2:20 PM EST) Blood Culture No growth at 5 days. [facility] Blood STRUCTURE OF RIGHT FOOT / Unknown 11/01/2023 2:20 PM EST 11/01/2023 3:03 PM EST Comment:#1 Narrative Resulting Agency Comment Spec In Lab Yessi Lopes MD MICROBIOLOGY - BLOOD ORDERABLES Performing Organization Address [facility] Co de Phone Number [facility] [place] [address] * (ABNORMAL) Troponin (11/01/2023 2:20 PM EST) Troponin-T, High Sensitivity 67(H) <=22 ng/L [facility] Comment: This patient's troponin T concentration [...] can be found in the [facility] Test Catalog Troponin - [facility] Test Catalog Reference: Fourth [employer] Definition of Myocardial Infarction. Journal of the [employer] 2018;72:9381-2779 Blood 11/01/2023 2:20 PM EST 11/01/2023 2:30 PM EST Narrative Resulting Agency Comment Spec In Lab Yessi Lopes MD CHEMISTRY ORDER LORNA [facility] [place] [address] * Phosphorus (11/01/2023 2:20 PM EST) Phosphorus 2.7 2.5 - 4.5 mg/dL [facility] Blood 11/01/2023 2:20 PM EST 11/01/2023 2:30 PM EST Narrative Resulting Agency Comment Spec In Lab Yessi Lopes MD CHEMISTRY ORDER LORNA Performing Organization Address City/[facility] Co de Phone Number [facility] [place] [address] * Magnesium (11/01/2023 2:20 PM EST) Magnesium 0.75 0.69 - 1.07 mmol/L [facility] Blood 11/01/2023 2:20 PM EST 11/01/2023 2:30 PM EST Narrative Resulting Agency Comment Spec In Lab Yessi Lopes MD CHEMISTRY ORDER LORNA Performing Organization Address City/[facility] Co de Phone Number [facility] [place] [address] * (ABNORMAL) Basic Metabolic Panel (non-fasting) (11/01/2023 2:20 PM EST) Glucose 107 65 - 199 mg/dL [facility] Comment:Diabetes: >=200 mg/d L plus symptoms Blood Urea Nitrogen 8(L) 10 - 20 mg/dL [facility] Creatinine 0.62(L) 0.80 - 1.50 mg/dL [facility] Sodium 138 135 - 145 mmol/L [facility] Potassium 4.1 3.5 - 5.0 mmol/L [facility] Comment: Please note: ??Patients with WBC >100,000 may have falsely elevated Potassium levels. ??For accurate Potassium quantification in these patients send serum separator tube (gold top) for subsequent determinations. ??Contact the Clinical Chemistry Laboratory if there are any questions. Chloride 103 98 - 107 mmol/L [facility] Carbon Dioxide 27 22 - 31 mmol/L [facility] Anion Gap 8 5 - 15 mmol/L [facility] Calcium 8.1(L) 8.5 - 10.5 mg/dL [facility] Est Glomerular Filtration Rate 112 >=60 mL/min/1. 73 m?? [facility] Comment: This patient's estimated GFR was [...] Lab Yessi Lopes MD CHEMISTRY ORDER [facility] [place] [address] * XR Chest One View (11/01/2023 1:55 [...] have questions please contact the health home care associate that requested your imaging first. ? Electronically signed by: Didi Hernandes MD, [facility] ([phone]), at 11/01/2023 2:05 PM Narrative 11/01/2023 2:05 [...] who have questions please contactthe health home care associate that requested your imaging first. Electronically signed by: Didi Hernandes MD, [facility]([phone]), at 11/01/2023 2:05 PM Yessi Lopes MD IMG DX ORDERABL ES * EKG 12 Lead (11/01/2023 1:44 PM EST) Ventricular rate 91 BPM MUSE SYSTEM Atrial Rate 91 BPM MUSE SYSTEM P-R Interval 144 ms MUSE SYSTEM QRS Duration 92 ms MUSE SYSTEM Q-T Interval 374 ms MUSE SYSTEM QTC Calculated (Bezet) 460 ms MUSE SYSTEM Calculated P [place] 72 degrees MUSE SYSTEM Calculated R [place] -30 degrees MUSE SYSTEM Calculated T [place] 71 degrees MUSE SYSTEM INTERPRETATION Normal sinus [...] (ABNORMAL) Differential, Automated (11/01/2023 12:28 AM EST) Neutrophil % 71.2 % [facility] Neutrophil Absolute 5.85 1.70 - 6.10 x10(3)/mc L [facility] Lymph % 17.9 % [facility] Lymphocytes Abs 1.5 0.9 - 3.2 x10(3)/mc L [facility] Monocyte % 7.1 % [facility] Monocyte Abs 0.6 0.3 - 0.9 x10(3)/mc L [facility] Eos % 2.9 % [facility] Eosinophils Abs 0.2 0.0 - 0.4 x10(3)/mc L [facility] Basophil % 0.2 % [facility] Baso Absolute 0.0 0.0 - 0.1 x10(3)/mc L [facility] Immature Gran % 0.70 % [facility] Comment: Immature granulocytes(IG's)percentage and absolute count will include metamyelocytes, myelocytes, and promyelocytes. Blood smears from CBCs yielding IG's will be scanned manually for concordance. If this scan disagrees with the automated IG or if promyelocytes are noted, a manual differential will be performed. Immature Gran Absolute 0.06(H) 0.00 - 0.04 x10(3)/mc L [facility] Blood 11/01/2023 12:2 8 AM EST 11/01/2023 12:44 AM EST Narrative Resulting Agency Comment Spec In Lab Monty OMER HEMATOLOGY ORDERABLE S Performing Organization Address City/[facility] Co de Phone Number [facility] [place] [address] * (ABNORMAL) Hemogram (11/01/2023 12:28 AM EST) White Blood Cell 8.2 4.0 - 9.5 x10(3)/mc L [facility] Red Blood Cell 3.10(L) 4.58 - 5.54 x10(6)/mc L [facility] Hemoglobin 9.2(L) 13.7 - 16.5 g/dL [facility] Hematocrit 28.0(L) 40.5 - 48.5 % [facility] Mean Cell Volume 90.3 82.9 - 93.1 fL [facility] Mean Cell Hemoglobin 29.7 27.5 - 32.1 pg [facility] Mean Cell Hemoglobin Concentration 32.9 32.0 - 35.7 g/dL [facility] Platelet 267 145 - 357 x10(3)/mc L [facility] RDW Standard Deviation 47.4(H) 36.0 - 45.0 fL [facility] RDW coefficient of variation 14.3(H) 11.4 - 13.8 % [facility] Mean Platelet Volume 9.8 7.6 - 12.9 fL [facility] NRBC% auto 0.0 % [facility] NRBC Absolute 0.000 0.000 - 0.000 x10(3)/mc L [facility] Blood 11/01/2023 12:2 8 AM EST 11/01/2023 12:44 AM EST Narrative Resulting Agency Comment Spec In Lab Monty OMER HEMATOLOGY ORDERABLE S Performing Organization Address City/[facility] Co de Phone Number [facility] [place] [address] * (ABNORMAL) Basic Metabolic Panel (non-fasting) (11/01/2023 12:28 AM EST) Glucose 105 65 - 199 mg/dL [facility] Comment:Diabetes: >=200 mg/d L plus symptoms Blood Urea Nitrogen 9(L) 10 - 20 mg/dL [facility] Creatinine 0.67(L) 0.80 - 1.50 mg/dL [facility] Sodium 143 135 - 145 mmol/L [facility] Potassium 4.5 3.5 - 5.0 mmol/L [facility] Comment: Please note: ??Patients with WBC >100,000 may have falsely elevated Potassium levels. ??For accurate Potassium quantification in these patients send serum separator tube (gold top) for subsequent determinations. ??Contact the Clinical Chemistry Laboratory if there are any questions. Chloride 107 98 - 107 mmol/L [facility] Carbon Dioxide 30 22 - 31 mmol/L [facility] Anion Gap 6 5 - 15 mmol/L [facility] Calcium 8.2(L) 8.5 - 10.5 mg/dL [facility] Est Glomerular Filtration Rate 110 >=60 mL/min/1. 73 m?? [facility] Comment: This patient's estimated GFR was [...] Lab Selma Brian MD CHEMISTRY ORDERABL ES [facility] [place] [address] * Phosphorus (11/01/2023 12:28 AM EST) Phosphorus 3.6 2.5 - 4.5 mg/dL [facility] Blood 11/01/2023 12:2 8 AM EST 11/01/2023 12:44 AM EST Narrative Resulting Agency Comment Spec In Lab Selma Brian MD CHEMISTRY ORDERABL ES Performing Organization Address [facility] [place] [address] * Magnesium (11/01/2023 12:28 AM EST) Magnesium 0.86 0.69 - 1.07 mmol/L [facility] Blood 11/01/2023 12:2 8 AM EST 11/01/2023 12:44 AM EST Narrative Resulting Agency Comment Spec In Lab Selma Brian MD CHEMISTRY ORDERABL ES Performing Organization Address [facility] de Phone Number [facility] [place] [address] * XR Chest One View (10/31/2023 8:12 [...] have questions please contact the health home care associate that requested your imaging first. ? Electronically signed by: Jose Joaquin MD, [facility] ([phone]), at 10/31/2023 8:38 PM Narrative 10/31/2023 8:38 PM EST EXAMINATION: XR [...] who have questions please contactthe health home care associate that requested your imaging first. Electronically signed by: Jose Joaquin MD, [facility]([phone]), at 10/31/2023 8:38 PM Yessi Lopes MD IMG DX ORDERABL ES * Phosphorus (10/31/2023 12:05 AM EST) Phosphorus 3.3 2.5 - 4.5 mg/dL [facility] Blood 10/31/2023 12:0 5 AM EST 10/31/2023 12:23 AM EST Narrative Resulting Agency Comment Spec In Lab Selma Brian MD CHEMISTRY ORDERABL ES Performing Organization Address [facility] Co de Phone Number [facility] [place] [address] * Magnesium (10/31/2023 12:05 AM EST) Magnesium 0.77 0.69 - 1.07 mmol/L [facility] Blood 10/31/2023 12:0 5 AM EST 10/31/2023 12:23 AM EST Narrative Resulting Agency Comment Spec In Lab Selma Brian MD CHEMISTRY ORDERABL ES Performing Organization Address [facility] Co de Phone Number [facility] [place] [address] * Blood culture (10/30/2023 1:00 PM EST) Blood Culture No growth at 5 days. [facility] Blood STRUCTURE OF RIGHT HAND / Unknown 10/30/2023 1:00 PM EST 10/30/2023 1:31 PM EST Comment:#2 Narrative Resulting Agency Comment Spec In Lab Yessi Lopes MD MICROBIOLOGY - BLOOD ORDERABLES Performing Organization Address [facility] Co de Phone Number [facility] [place] [address] * (ABNORMAL) Blood culture (10/30/2023 12:55 PM EST) Blood Culture Coagulase negative Staphylococcus species isolated : two morphologies Interpretation of the importance of skin daphne such as Coagulase Negative Staph, Viridans Strep, Corynebacteria and other Gram Positive organisms from a single Blood Culture set requires clinical correlation. (A) [facility] Gram Stain Anaerobic Growth detected in anaerobic bottle. Gram Positive Cocci in clusters seen (A) [facility] Gram Stain Aerobic Growth detected in aerobic bottle. Gram Positive Cocci in clusters seen (A) [facility] Organism Coagulase negative Staphylococcus species(A) [facility] Organism Gram Positive Cocci in clusters(A) [facility] Blood STRUCTURE OF LEFT FOOT / Unknown 10/30/2023 12:55 PM EST 10/30/2023 1:31 PM EST Comment:#1 Narrative Resulting Agency Comment Spec In Lab Yessi Lopes MD MICROBIOLOGY - BLOOD ORDERABLES Performing Organization Address [facility] [place] [address] * Valproic Acid Level, Total (10/30/2023 10:05 AM EST) Valproic Acid 19 mg/L [facility] Comment: Therapeutic Range: Anticonvulsant Therapy: ??50-100 mg/L Manic Episodes Associated with Bipolar Disorder: ??50-125 mg/L Blood 10/30/2023 10:0 5 AM EST 10/30/2023 10:21 AM EST Narrative Resulting Agency Comment Spec In Lab Eliane Mcallister APRN CHEMISTRY ORDERABL ES Performing Organization Address [facility] [place] [address] * (ABNORMAL) Differential, Automated (10/30/2023 12:07 AM EST) Neutrophil % 67.0 % [facility] Neutrophil Absolute 5.04 1.70 - 6.10 x10(3)/mc L [facility] Lymph % 18.2 % [facility] Lymphocytes Abs 1.4 0.9 - 3.2 x10(3)/mc L [facility] Monocyte % 12.9 % [facility] Monocyte Abs 1.0(H) 0.3 - 0.9 x10(3)/mc L [facility] Eos % 0.8 % [facility] Eosinophils Abs 0.1 0.0 - 0.4 x10(3)/mc L [facility] Basophil % 0.4 % [facility] Baso Absolute 0.0 0.0 - 0.1 x10(3)/mc L [facility] Immature Gran % 0.70 % [facility] Comment: Immature granulocytes(IG's)percentage and absolute count will include metamyelocytes, myelocytes, and promyelocytes. Blood smears from CBCs yielding IG's will be scanned manually for concordance. If this scan disagrees with the automated IG or if promyelocytes are noted, a manual differential will be performed. Immature Gran Absolute 0.05(H) 0.00 - 0.04 x10(3)/mc L [facility] Blood 10/30/2023 12:0 7 AM EST 10/30/2023 12:15 AM EST Narrative Resulting Agency Comment Spec In Lab Jeronimo Robins MD HEMATOLOGY ORDERABLE S [facility] [place] [address] * (ABNORMAL) Hemogram (10/30/2023 12:07 AM EST) White Blood Cell 7.5 4.0 - 9.5 x10(3)/mc L [facility] Red Blood Cell 3.17(L) 4.58 - 5.54 x10(6)/mc L [facility] Hemoglobin 9.4(L) 13.7 - 16.5 g/dL [facility] Hematocrit 28.1(L) 40.5 - 48.5 % [facility] Mean Cell Volume 88.6 82.9 - 93.1 fL [facility] Mean Cell Hemoglobin 29.7 27.5 - 32.1 pg [facility] Mean Cell Hemoglobin Concentration 33.5 32.0 - 35.7 g/dL [facility] Platelet 188 145 - 357 x10(3)/mc L [facility] RDW Standard Deviation 46.1(H) 36.0 - 45.0 fL [facility] RDW coefficient of variation 14.2(H) 11.4 - 13.8 % [facility] Mean Platelet Volume 10.1 7.6 - 12.9 fL [facility] NRBC% auto 0.0 % [facility] NRBC Absolute 0.000 0.000 - 0.000 x10(3)/mc L [facility] Blood 10/30/2023 12:0 7 AM EST 10/30/2023 12:15 AM EST Narrative Resulting Agency Comment Spec In Lab Jeronimo Robins MD HEMATOLOGY ORDERABLE S Performing Organization Address City/State/[facility] Co de Phone Number [facility] [place] [address] * (ABNORMAL) Basic Metabolic Panel (non-fasting) (10/30/2023 12:07 AM EST) Glucose 117 65 - 199 mg/dL [facility] Comment:Diabetes: >=200 mg/d L plus symptoms Blood Urea Nitrogen 8(L) 10 - 20 mg/dL [facility] Creatinine 0.74(L) 0.80 - 1.50 mg/dL [facility] Sodium 141 135 - 145 mmol/L [facility] Potassium 4.0 3.5 - 5.0 mmol/L [facility] Comment: Please note: ??Patients with WBC >100,000 may have falsely elevated Potassium levels. ??For accurate Potassium quantification in these patients send serum separator tube (gold top) for subsequent determinations. ??Contact the Clinical Chemistry Laboratory if there are any questions. Chloride 104 98 - 107 mmol/L [facility] Carbon Dioxide 28 22 - 31 mmol/L [facility] Anion Gap 9 5 - 15 mmol/L [facility] Calcium 7.9(L) 8.5 - 10.5 mg/dL [facility] Est Glomerular Filtration Rate 106 >=60 mL/min/1. 73 m?? [facility] Comment: This patient's estimated GFR was [...] MD CHEMISTRY ORDERABL ES Performing Organization Address City/[facility] Co de Phone Number [facility] [place] [address] * (ABNORMAL) Phosphorus (10/30/2023 12:07 AM EST) Phosphorus 1.9(L) 2.5 - 4.5 mg/dL [facility] Blood 10/30/2023 12:0 7 AM EST 10/30/2023 12:16 AM EST Narrative Resulting Agency Comment Spec In Lab Selma Brian MD CHEMISTRY ORDERABL ES Performing Organization Address [facility] Co de Phone Number [facility] [place] [address] * Magnesium (10/30/2023 12:07 AM EST) Magnesium 0.86 0.69 - 1.07 mmol/L [facility] Blood 10/30/2023 12:0 7 AM EST 10/30/2023 12:16 AM EST Narrative Resulting Agency Comment Spec In Lab Selma Brian MD CHEMISTRY ORDERABL ES Performing Organization Address [facility] de Phone Number [facility] [place] [address] * MRSA PCR Screen ([facility]/CGP/APD/NLH) (10/29/2023 6:48 AM EST) MRSA PCR Negative Negative [facility] MRSA (Interp) Methicillin-resist ant Staphylococcus aureus (MRSA) is NOT DETECTED The MRSA target DNA sequences (mec and SCC) were not detected within the acceptable ranges using the Xpert MRSA NxG on the GeneXpert Dx System (crowdSPRING). This suggests the absence of MRSA in the patient specimen submitted for testing. This test is cleared by the U.S. Food and Drug Administration for clinical use and its performance characteristics have been verified by the [facility] at [facility]. This result does not rule out the presence of any other organisms. Rare false negative results may occur if MRSA is present at low concentrations with much higher concentrations of other organisms including MRSE or S. aureus with an empty SCC cassette. [facility] Comment: [VERIFIED DATE]10.29.23 Verified By:Katherine Early (Electronic Signature) Nasopharyngeal Swab 10/29/20 6:48 AM EST 10/29/2023 8:32 AM EST Comment:Specimen Type->Nasop haryngeal Swab Narrative Resulting Agency Comment Spec In Lab Selma Brian MD MOLECULAR ORDERABL ES [facility] [place] [address] * XR Chest One View (10/29/2023 6:20 [...] have questions please contact the health home care associate that requested your imaging first. ? Narrative 10/29/2023 7:15 AM EST EXAMINATION: XR CHEST ONE VIEW CLINICAL HISTORY: surveil LLL mucus plus TECHNIQUE: 1 view of the chest . 2 images COMPARISON: Chest radiograph and CT 10/28/2023. FINDINGS: Examination is limited by the right upper extremity obscuring part of the [id number]. Left chest wall subcutaneous port with tip at the superior cavoatrial junction. Similar-appearing left basilar opacity. No pneumothorax. No pleural effusion. Unchanged cardiomediastinal contours. Partially visualized cervical fusion hardware. Procedure Note rKishan Branch MD - 10/29/2023 EXAMINATION: XR CHEST ONE VIEW CLINICAL HISTORY: surveil LLL mucus plus TECHNIQUE: 1 view of the chest . 2 images COMPARISON: Chest radiograph and CT 10/28/2023. FINDINGS: Examination is limited by the right upper extremity obscuring part ofthe [id number]. Left chest wall subcutaneous port with tip [...] who have questions please contactthe health home care associate that requested your imaging first. Selma Brian MD IMG DX ORDERABLES * (ABNORMAL) Phosphorus (10/29/2023 12:28 AM EST) Phosphorus 2.3(L) 2.5 - 4.5 mg/dL [facility] Blood Venous Draw / Unknown 10/29/2023 12:28 AM EST 10/29/2023 12:35 AM EST Narrative Resulting Agency Comment Spec In Lab Marley Madrigal MD CHEMISTRY ORDERA BLES Performing Organization Address City/[facility]/ZIP Co de Phone Number [facility] [place] [address] * (ABNORMAL) Magnesium (10/29/2023 12:28 AM EST) Pathologist [facility] Magnesium 0.60(L) 0.69 - 1.07 mmol/L [facility] Blood Venous Draw / Unknown 10/29/2023 12:28 AM EST 10/29/2023 12:35 AM EST Narrative Resulting Agency Comment Spec In Lab Marley Madrigal MD CHEMISTRY ORDERA BLES Performing Organization Address [facility] Co de Phone Number [facility] [place] [address] * (ABNORMAL) Differential, Automated (10/29/2023 12:28 AM EST) Pathologist [facility] Neutrophil % 73.2 % [facility] Neutrophil Absolute 5.40 1.70 - 6.10 x10(3)/mc L [facility] Lymph % 13.3 % [facility] Lymphocytes Abs 1.0 0.9 - 3.2 x10(3)/mc L [facility] Monocyte % 11.8 % [facility] Monocyte Abs 0.9 0.3 - 0.9 x10(3)/mc L [facility] Eos % 0.5 % [facility] Eosinophils Abs 0.0 0.0 - 0.4 x10(3)/mc L [facility] Basophil % 0.3 % [facility] Baso Absolute 0.0 0.0 - 0.1 x10(3)/mc L [facility] Immature Gran % 0.90 % [facility] Comment: Immature granulocytes(IG's)percentage and absolute count will include metamyelocytes, myelocytes, and promyelocytes. Blood smears from CBCs yielding IG's will be scanned manually for concordance. If this scan disagrees with the automated IG or if promyelocytes are noted, a manual differential will be performed. Immature Gran Absolute 0.07(H) 0.00 - 0.04 x10(3)/mc L [facility] Blood 10/29/2023 12:2 8 AM EST 10/29/2023 12:35 AM EST Narrative Resulting Agency Comment Spec In Lab Jeronimo Robins MD HEMATOLOGY ORDERABLE S Performing Organization Address City/[facility]/ZIP Co de Phone Number [facility] [place] [address] * (ABNORMAL) Hemogram (10/29/2023 12:28 AM EST) White Blood Cell 7.4 4.0 - 9.5 x10(3)/mc L [facility] Red Blood Cell 3.18(L) 4.58 - 5.54 x10(6)/mc L [facility] Hemoglobin 9.4(L) 13.7 - 16.5 g/dL [facility] Hematocrit 28.2(L) 40.5 - 48.5 % [facility] Mean Cell Volume 88.7 82.9 - 93.1 fL [facility] Mean Cell Hemoglobin 29.6 27.5 - 32.1 pg [facility] Mean Cell Hemoglobin Concentration 33.3 32.0 - 35.7 g/dL [facility] Platelet 150 145 - 357 x10(3)/mc L [facility] RDW Standard Deviation 45.4(H) 36.0 - 45.0 fL [facility] RDW coefficient of variation 13.9(H) 11.4 - 13.8 % [facility] Mean Platelet Volume 10.3 7.6 - 12.9 fL [facility] NRBC% auto 0.0 % [facility] NRBC Absolute 0.000 0.000 - 0.000 x10(3)/mc L [facility] Blood 10/29/2023 12:2 8 AM EST 10/29/2023 12:35 AM EST Narrative Resulting Agency Comment Spec In Lab Jeronimo Robins MD HEMATOLOGY ORDERABLE S Performing Organization Address City/[facility] Co de Phone Number [facility] [place] [address] * (ABNORMAL) Basic Metabolic Panel (non-fasting) (10/29/2023 12:28 AM EST) Glucose 130 65 - 199 mg/dL [facility] Comment:Diabetes: >=200 mg/d L plus symptoms Blood Urea Nitrogen 10 10 - 20 mg/dL [facility] Creatinine 0.76(L) 0.80 - 1.50 mg/dL [facility] Sodium 141 135 - 145 mmol/L [facility] Potassium 3.8 3.5 - 5.0 mmol/L [facility] Comment: Please note: ??Patients with WBC >100,000 may have falsely elevated Potassium levels. ??For accurate Potassium quantification in these patients send serum separator tube (gold top) for subsequent determinations. ??Contact the Clinical Chemistry Laboratory if there are any questions. Chloride 104 98 - 107 mmol/L [facility] Carbon Dioxide 27 22 - 31 mmol/L [facility] Anion Gap 10 5 - 15 mmol/L [facility] Calcium 8.2(L) 8.5 - 10.5 mg/dL [facility] Est Glomerular Filtration Rate 105 >=60 mL/min/1. 73 m?? [facility] Comment: This patient's estimated GFR was [...] Lab Selma Brian MD CHEMISTRY ORDERABL ES [facility] [place] [address] * ECHO COMPLETE W CONTRAST (10/28/2023 3:48 PM EST) EF 66 HEARTLAB SYSTEM Anatomical Region Laterality Modality Cardiac Other 10/28/2023 2:09 PM EST Narrative 10/28/2023 4:37 PM EST [address] [place] [address] ? Echocardiogram Report Name: NIGHAT BARRIOS ? Study Date: 10/28/2023 02:09 PM ? Patient Location: ICUS IC10 A : 1965 ? Height: 188 cm ? Account: [id number] Age: 58 yrs ? Weight: 82 kg [...] disease. No prior study for comparison. Procedure Complete-87517. Image enhancement Definity was used for left [...] Note Lobo Jones MD - 10/28/2023 [address] [place] [address] Echocardiogram Report Name: NIGHAT BARRIOS Study Date: 302:09 PM Patient Location: [address] : 1965 Height: 188 cm Account: [id number] Age: 58 yrs Weight: 82 kg Gender: [...] disease. No prior study for comparison. Procedure Complete-[id number]. Image enhancement Definity was used for left [...] have questions please contact the health home care associate that requested your imaging first. ? Electronically signed by: Jose Joaquin MD, [facility] ([phone]), at 10/28/2023 2:59 PM Narrative 10/28/2023 2:59 [...] who have questions please contactthe health home care associate that requested your imaging first. Electronically signed by: Jose Joaquin MD, [facility]([phone]), at 10/28/2023 2:59 PM Yessi Lopes MD [...] have questions please contact the health home care associate that requested your imaging first. ? Electronically signed by: Rajinder Eric MD, [facility] ??([phone]), at 10/28/2023 1:21 PM Narrative 10/28/2023 1:21 [...] administration of contrast, Administered 94.0 ml of [id number] mg/ml. Thin-section reconstructions as well as coronal [...] who have questions please contactthe health home care associate that requested your imaging first. Electronically signed by: Rajinder Eric MD, [facility]([phone]), at 10/28/2023 1:21 PM Selma Brian MD IMG CT ORDERABLES * Blood culture (10/28/2023 9:22 AM EST) Blood Culture No growth at 5 days. [facility] Blood STRUCTURE OF LEFT FOOT / Unknown 10/28/2023 9:22 AM EST 10/28/2023 9:54 AM EST Comment:#2 Narrative Resulting Agency Comment Spec In Lab Selma Brian MD MICROBIOLOGY - BLO OD ORDERABLES Performing Organization Address [facility] Co de Phone Number [facility] [place] [address] * Blood culture (10/28/2023 9:10 AM EST) Blood Culture No growth at 5 days. [facility] Blood STRUCTURE OF RIGHT HAND / Unknown 10/28/2023 9:10 AM EST 10/28/2023 9:55 AM EST Comment:#1 Narrative Resulting Agency Comment Spec In Lab Selma Brian MD MICROBIOLOGY - BLO OD ORDERABLES Performing Organization Address [facility] Co de Phone Number [facility] [place] [address] * (ABNORMAL) BLOOD GAS 2 ARTERIAL (10/28/2023 6:04 AM EST) pH, Arterial 7.40 7.35 - 7.45 [facility] PCO2, Arterial 41 35 - 45 mmHg [facility] PO2, Arterial 64(L) 85 - 104 mmHg [facility] Bicarbonate, Arterial 24.9 20.0 - 26.0 mmol/L [facility] Base Excess, Arterial 0.1 -3.0 - 3.0 mmol/L [facility] Hgb Blood Gas 12.9(L) 13.7 - 16.5 g/dL [facility] Oxyhemoglobin, Arterial 92.1(L) 94.0 - 97.0 % [facility] Carboxyhemoglob in, Arterial 0.3 % [facility] Comment: Nonsmokers: 0.5-1.5% COHB Smokers: Variable, but usually less than 10% Toxic: 20-30% COHB Lethal: Greater than 60% COHB Methemoglobin, Arterial 0.3 <=1.5 % [facility] Na Whole Blood 139 135 - 145 mmol/L [facility] K Whole Blood 3.5 3.5 - 5.0 mmol/L [facility] Comment: Please note: Patients with WBC >100,000 may have falsely elevated Potassium levels. Contact the Clinical Chemistry Laboratory if there are any questions. ICa Whole Blood 1.12(L) 1.15 - 1.33 mmol/L [facility] Comment: Note: ??Total bilirubin higher than 20 mg/dL may lead to falsely low ionized calcium. CL Whole Blood 104 98 - 107 mmol/L [facility] Gluc Whole Bld 129 65 - 199 mg/dL [facility] Comment:Diabetes: >=200 mg/d L plus symptoms. Lactate WB 1.0 0.5 - 2.2 mmol/L [facility] FIO2 Art 60 % [facility] PF Ratio Art 107 [facility] Blood 10/28/2023 6:04 AM EST 10/28/2023 6:04 AM EST Selma Brian MD POINT OF CARE TEST ORDERABLES [facility] [place] [address] * (ABNORMAL) BLOOD GAS 2 VENOUS (10/28/2023 4:36 AM EST) pH, Venous 7.37 7.32 - 7.42 [facility] PCO2, Venous 44 41 - 51 mmHg [facility] PO2, Venous 34 25 - 40 mmHg [facility] Bicarbonate, Venous 24.8 mmol/L [facility] Base Excess, Venous -0.5 mmol/L [facility] Hgb Blood Gas 11.0(L) 13.7 - 16.5 g/dL [facility] Oxyhemoglobin, Venous 66.4 % [facility] Carboxyhemoglob in, Venous 0.3 % [facility] Comment: Nonsmokers: 0.5-1.5% COHB Smokers: Variable, but usually less than 10% Toxic: 20-30% COHB Lethal: Greater than 60% COHB Methemoglobin, Venous 0.4 <=1.5 % [facility] Na Whole Blood 139 135 - 145 mmol/L [facility] K Whole Blood 3.4(L) 3.5 - 5.0 mmol/L [facility] Comment: Please note: Patients with WBC >100,000 may have falsely elevated Potassium levels. Contact the Clinical Chemistry Laboratory if there are any questions. ICa Whole Blood 1.13(L) 1.15 - 1.33 mmol/L [facility] Comment: Note: ??Total bilirubin higher than 20 mg/dL may lead to falsely low ionized calcium. CL Whole Blood 104 98 - 107 mmol/L [facility] Gluc Whole Bld 120 65 - 199 mg/dL [facility] Comment:Diabetes: >=200 mg/d L plus symptoms Lactate WB 0.8 0.5 - 2.2 mmol/L [facility] Fraction of Inspired Oxygen, Venous 60 % [facility] Blood Gas Source Venous [facility] Blood 10/28/2023 4:36 AM EST 10/28/2023 4:36 AM EST Selma Brian MD POINT OF CARE TEST ORDERABLES [facility] [place] [address] * EKG 12 Lead (10/28/2023 4:01 AM EST) Ventricular rate 94 BPM MUSE SYSTEM Atrial Rate 94 BPM MUSE SYSTEM P-R Interval 150 ms MUSE SYSTEM QRS Duration 106 ms MUSE SYSTEM Q-T Interval 354 ms MUSE SYSTEM QTC Calculated (Bezet) 442 ms MUSE SYSTEM Calculated P [place] 70 degrees MUSE SYSTEM Calculated R [place] 4 degrees MUSE SYSTEM Calculated T [place] 66 degrees MUSE SYSTEM INTERPRETATION Normal sinus rhythm Normal ECG When compared with ECG of 25-OCT-2023 11:39, Incomplete right bundle branch block is no longer Present Confirmed by MD Alesha, Rajinder Hartmann ([id number]) on 10/31/2023 10:47:00 AM MUSE SYSTEM 10/28/2023 4:01 AM EST 10/31/2023 10:47 AM EST Selma Brian MD ECG ORDERABLES MUSE SYSTEM * XR Chest One View [...] have questions please contact the health home care associate that requested your imaging first. ? Electronically signed by: Allen García MD, [facility] ([phone]), at 10/28/2023 3:39 AM Narrative 10/28/2023 3:39 [...] who have questions please contactthe health home care associate that requested your imaging first. Selma Brian MD IMG DX ORDERABLES * (ABNORMAL) Differential, Automated (10/28/2023 12:12 AM EST) Neutrophil % 78.7 % [facility] Neutrophil Absolute 6.64(H) 1.70 - 6.10 x10(3)/mc L [facility] Lymph % 12.7 % [facility] Lymphocytes Abs 1.1 0.9 - 3.2 x10(3)/mc L [facility] Monocyte % 6.6 % [facility] Monocyte Abs 0.6 0.3 - 0.9 x10(3)/mc L [facility] Eos % 0.9 % [facility] Eosinophils Abs 0.1 0.0 - 0.4 x10(3)/mc L [facility] Basophil % 0.4 % [facility] Baso Absolute 0.0 0.0 - 0.1 x10(3)/mc L [facility] Immature Gran % 0.70 % [facility] Comment: Immature granulocytes(IG's)percentage and absolute count will include metamyelocytes, myelocytes, and promyelocytes. Blood smears from CBCs yielding IG's will be scanned manually for concordance. If this scan disagrees with the automated IG or if promyelocytes are noted, a manual differential will be performed. Immature Gran Absolute 0.06(H) 0.00 - 0.04 x10(3)/mc L [facility] Blood 10/28/2023 12:1 2 AM EST 10/28/2023 12:19 AM EST Narrative Resulting Agency Comment Spec In Lab Amelia Ngo MD HEMATOLOGY ORDERABLE S [facility] [place] [address] * (ABNORMAL) Hemogram (10/28/2023 12:12 AM EST) White Blood Cell 8.4 4.0 - 9.5 x10(3)/mc L [facility] Red Blood Cell 3.24(L) 4.58 - 5.54 x10(6)/mc L [facility] Hemoglobin 9.7(L) 13.7 - 16.5 g/dL [facility] Hematocrit 28.8(L) 40.5 - 48.5 % [facility] Mean Cell Volume 88.9 82.9 - 93.1 fL [facility] Mean Cell Hemoglobin 29.9 27.5 - 32.1 pg [facility] Mean Cell Hemoglobin Concentration 33.7 32.0 - 35.7 g/dL [facility] Platelet 149 145 - 357 x10(3)/mc L [facility] RDW Standard Deviation 46.2(H) 36.0 - 45.0 fL [facility] RDW coefficient of variation 14.2(H) 11.4 - 13.8 % [facility] Mean Platelet Volume 11.1 7.6 - 12.9 fL [facility] NRBC% auto 0.0 % [facility] NRBC Absolute 0.000 0.000 - 0.000 x10(3)/mc L [facility] Blood 10/28/2023 12:1 2 AM EST 10/28/2023 12:19 AM EST Narrative Resulting Agency Comment Spec In Lab Amelia gNo MD HEMATOLOGY ORDERABLE S [facility] [place] [address] * (ABNORMAL) Basic Metabolic Panel (non-fasting) (10/28/2023 12:12 AM EST) Glucose 94 65 - 199 mg/dL [facility] Comment:Diabetes: >=200 mg/d L plus symptoms Blood Urea Nitrogen 13 10 - 20 mg/dL [facility] Creatinine 0.82 0.80 - 1.50 mg/dL [facility] Sodium 142 135 - 145 mmol/L [facility] Potassium 3.7 3.5 - 5.0 mmol/L [facility] Comment: Please note: ??Patients with WBC >100,000 may have falsely elevated Potassium levels. ??For accurate Potassium quantification in these patients send serum separator tube (gold top) for subsequent determinations. ??Contact the Clinical Chemistry Laboratory if there are any questions. Chloride 108(H) 98 - 107 mmol/L [facility] Carbon Dioxide 24 22 - 31 mmol/L [facility] Anion Gap 10 5 - 15 mmol/L [facility] Calcium 8.2(L) 8.5 - 10.5 mg/dL [facility] Est Glomerular Filtration Rate 103 >=60 mL/min/1. 73 m?? [facility] Comment: This patient's estimated GFR was [...] MD CHEMISTRY ORDERABL ES Performing Organization Address City/[facility]/ZIP Co de Phone Number [facility] [place] [address] * POCT Glucose (10/27/2023 12:38 PM EST) Glucose, POC 92 65 - 199 mg/dL [facility] Comment: Supplemental ranges: <140 mg/dL before meals <180 mg/dL all other times of the day Blood 10/27/2023 12:3 8 PM EST 10/27/2023 12:38 PM EST Selma Brian MD POINT OF CARE TEST ORDERABLES Performing Organization Address [facility] Co de Phone Number [facility] [place] [address] * POCT Glucose (10/27/2023 8:01 AM EST) Glucose, POC 104 65 - 199 mg/dL [facility] Comment: Supplemental ranges: <140 mg/dL before meals <180 mg/dL all other times of the day Blood 10/27/2023 8:01 AM EST 10/27/2023 8:01 AM EST Selma Brian MD POINT OF CARE TEST ORDERABLES Performing Organization Address [facility] Co de Phone Number [facility] [place] [address] * POCT Glucose (10/27/2023 3:51 AM EST) Glucose, POC 86 65 - 199 mg/dL [facility] Comment: Supplemental ranges: <140 mg/dL before meals <180 mg/dL all other times of the day Blood 10/27/2023 3:51 AM EST 10/27/2023 3:51 AM EST Selma Brian MD POINT OF CARE TEST ORDERABLES [facility] [place] [address] * POCT Glucose (10/27/2023 12:44 AM EST) Glucose, POC 86 65 - 199 mg/dL [facility] Comment: Supplemental ranges: <140 mg/dL before meals <180 mg/dL all other times of the day Blood 10/27/2023 12:4 4 AM EST 10/27/2023 12:44 AM EST Selma Brian MD POINT OF CARE TEST ORDERABLES [facility] [place] [address] * (ABNORMAL) Differential, Automated (10/27/2023 12:37 AM EST) Pathologist [facility] Neutrophil % 83.0 % [facility] Neutrophil Absolute 12.68(H) 1.70 - 6.10 x10(3)/mc L [facility] Lymph % 9.6 % [facility] Lymphocytes Abs 1.5 0.9 - 3.2 x10(3)/mc L [facility] Monocyte % 4.8 % [facility] Monocyte Abs 0.7 0.3 - 0.9 x10(3)/mc L [facility] Eos % 1.6 % [facility] Eosinophils Abs 0.2 0.0 - 0.4 x10(3)/mc L [facility] Basophil % 0.2 % [facility] Baso Absolute 0.0 0.0 - 0.1 x10(3)/mc L [facility] Immature Gran % 0.80 % [facility] Comment: Immature granulocytes(IG's)percentage and absolute count will include metamyelocytes, myelocytes, and promyelocytes. Blood smears from CBCs yielding IG's will be scanned manually for concordance. If this scan disagrees with the automated IG or if promyelocytes are noted, a manual differential will be performed. Immature Gran Absolute 0.12(H) 0.00 - 0.04 x10(3)/mc L [facility] Blood 10/27/2023 12:3 7 AM EST 10/27/2023 12:49 AM EST Narrative Resulting Agency Comment Spec In Lab mAelia Ngo MD HEMATOLOGY ORDERABLE S [facility] [place] [address] * (ABNORMAL) Hemogram (10/27/2023 12:37 AM EST) White Blood Cell 15.3(H) 4.0 - 9.5 x10(3)/ L [facility] Red Blood Cell 3.26(L) 4.58 - 5.54 x10(6)/mc L [facility] Hemoglobin 9.8(L) 13.7 - 16.5 g/dL [facility] Hematocrit 28.8(L) 40.5 - 48.5 % [facility] Mean Cell Volume 88.3 82.9 - 93.1 fL [facility] Mean Cell Hemoglobin 30.1 27.5 - 32.1 pg [facility] Mean Cell Hemoglobin Concentration 34.0 32.0 - 35.7 g/dL [facility] Platelet 160 145 - 357 x10(3)/mc L [facility] RDW Standard Deviation 47.3(H) 36.0 - 45.0 fL [facility] RDW coefficient of variation 14.4(H) 11.4 - 13.8 % [facility] Mean Platelet Volume 10.7 7.6 - 12.9 fL [facility] NRBC% auto 0.0 % [facility] NRBC Absolute 0.000 0.000 - 0.000 x10(3)/ L [facility] Blood 10/27/2023 12:3 7 AM EST 10/27/2023 12:49 AM EST Narrative Resulting Agency Comment Spec In Lab Amelia Ngo MD HEMATOLOGY ORDERABLE S Performing Organization Address City/[facility]/ZIP Co de Phone Number [facility] [place] [address] * (ABNORMAL) Phosphorus (10/27/2023 12:37 AM EST) Phosphorus 2.4(L) 2.5 - 4.5 mg/dL [facility] Blood 10/27/2023 12:3 7 AM EST 10/27/2023 12:49 AM EST Narrative Resulting Agency Comment Spec In Lab Yoel Sethi Jr., MD CHEMISTRY SAMUEL FRANCISCO Performing Organization Address [facility] Co de Phone Number [facility] [place] [address] * Magnesium (10/27/2023 12:37 AM EST) Magnesium 0.91 0.69 - 1.07 mmol/L [facility] Blood 10/27/2023 12:3 7 AM EST 10/27/2023 12:49 AM EST Narrative Resulting Agency Comment Spec In Lab Yoel Sethi Jr., MD CHEMISTRY SAMUEL FRANCISCO Performing Organization Address [facility] de Phone Number [facility] [place] [address] * (ABNORMAL) Basic Metabolic Panel (non-fasting) (10/27/2023 12:37 AM EST) Glucose 83 65 - 199 mg/dL [facility] Comment:Diabetes: >=200 mg/d L plus symptoms Blood Urea Nitrogen 19 10 - 20 mg/dL [facility] Creatinine 0.87 0.80 - 1.50 mg/dL [facility] Sodium 141 135 - 145 mmol/L [facility] Potassium 3.6 3.5 - 5.0 mmol/L [facility] Comment: Please note: ??Patients with WBC >100,000 may have falsely elevated Potassium levels. ??For accurate Potassium quantification in these patients send serum separator tube (gold top) for subsequent determinations. ??Contact the Clinical Chemistry Laboratory if there are any questions. Chloride 110(H) 98 - 107 mmol/L [facility] Carbon Dioxide 21(L) 22 - 31 mmol/L [facility] Anion Gap 10 5 - 15 mmol/L [facility] Calcium 8.1(L) 8.5 - 10.5 mg/dL [facility] Est Glomerular Filtration Rate 101 >=60 mL/min/1. 73 m?? [facility] Comment: This patient's estimated [...] MD CHEMISTRY ORDERABL ES Performing Organization Address [facility] Co de Phone Number [facility] [place] [address] * POCT Glucose (10/26/2023 7:31 PM EST) Glucose, POC 111 65 - 199 mg/dL [facility] Comment: Supplemental ranges: <140 mg/dL before meals <180 mg/dL all other times of the day Blood 10/26/2023 7:31 PM EST 10/26/2023 7:31 PM EST Selma Brian MD POINT OF CARE TEST ORDERABLES Performing Organization Address [facility] Co de Phone Number [facility] [place] [address] * POCT Glucose (10/26/2023 4:57 PM EST) Glucose, POC 89 65 - 199 mg/dL [facility] Comment: Supplemental ranges: <140 mg/dL before meals <180 mg/dL all other times of the day Blood 10/26/2023 4:57 PM EST 10/26/2023 4:57 PM EST Selma Brian MD POINT OF CARE TEST ORDERABLES Performing Organization Address [facility] Co de Phone Number [facility] [place] [address] * POCT Glucose (10/26/2023 4:04 PM EST) Glucose, POC 77 65 - 199 mg/dL [facility] Comment: Supplemental ranges: <140 mg/dL before meals <180 mg/dL all other times of the day Blood 10/26/2023 4:04 PM EST 10/26/2023 4:04 PM EST Selma Brian MD POINT OF CARE TEST ORDERABLES [facility] [place] [address] * POCT Glucose (10/26/2023 12:10 PM EST) Glucose, POC 77 65 - 199 mg/dL [facility] Comment: Supplemental ranges: <140 mg/dL before meals <180 mg/dL all other times of the day Blood 10/26/2023 12:1 0 PM EST 10/26/2023 12:10 PM EST Selma Brian MD POINT OF CARE TEST ORDERABLES [facility] [place] [address] * POCT Glucose (10/26/2023 7:27 AM EST) Glucose, POC 85 65 - 199 mg/dL [facility] Comment: Supplemental ranges: <140 mg/dL before meals <180 mg/dL all other times of the day Blood 10/26/2023 7:27 AM EST 10/26/2023 7:27 AM EST Dedra Arrington DO POINT OF CA RE TEST ORDERABLES [facility] [place] [address] * POCT Glucose (10/26/2023 4:36 AM EST) Glucose, POC 84 65 - 199 mg/dL [facility] Comment: Supplemental ranges: <140 mg/dL before meals <180 mg/dL all other times of the day Blood 10/26/2023 4:36 AM EST 10/26/2023 4:36 AM EST Dedra Rayna Arrington DO POINT OF CA RE TEST ORDERABLES Performing Organization Address City/State/[facility] Co de Phone Number [facility] [place] [address] * (ABNORMAL) Differential, Automated (10/26/2023 12:59 AM EST) Neutrophil % 88.5 % [facility] Neutrophil Absolute 17.54(H) 1.70 - 6.10 x10(3)/mc L [facility] Lymph % 4.1 % [facility] Lymphocytes Abs 0.8(L) 0.9 - 3.2 x10(3)/mc L [facility] Monocyte % 5.6 % [facility] Monocyte Abs 1.1(H) 0.3 - 0.9 x10(3)/mc L [facility] Eos % 0.2 % [facility] Eosinophils Abs 0.0 0.0 - 0.4 x10(3)/mc L [facility] Basophil % 0.2 % [facility] Baso Absolute 0.0 0.0 - 0.1 x10(3)/mc L [facility] Immature Gran % 1.40 % [facility] Comment: Immature granulocytes(IG's)percentage and absolute count will include metamyelocytes, myelocytes, and promyelocytes. Blood smears from CBCs yielding IG's will be scanned manually for concordance. If this scan disagrees with the automated IG or if promyelocytes are noted, a manual differential will be performed. Immature Gran Absolute 0.28(H) 0.00 - 0.04 x10(3)/mc L [facility] Blood 10/26/2023 12:5 9 AM EST 10/26/2023 1:13 AM EST Narrative Resulting Agency Comment Spec In Lab Amelia Ngo MD HEMATOLOGY ORDERABLE S [facility] [place] [address] * (ABNORMAL) Hemogram (10/26/2023 12:59 AM EST) White Blood Cell 19.8(H) 4.0 - 9.5 x10(3)/mc L [facility] Red Blood Cell 3.39(L) 4.58 - 5.54 x10(6)/mc L [facility] Hemoglobin 10.2(L) 13.7 - 16.5 g/dL [facility] Hematocrit 29.8(L) 40.5 - 48.5 % [facility] Mean Cell Volume 87.9 82.9 - 93.1 fL [facility] Mean Cell Hemoglobin 30.1 27.5 - 32.1 pg [facility] Mean Cell Hemoglobin Concentration 34.2 32.0 - 35.7 g/dL [facility] Platelet 163 145 - 357 x10(3)/mc L [facility] RDW Standard Deviation 46.2(H) 36.0 - 45.0 fL [facility] RDW coefficient of variation 14.3(H) 11.4 - 13.8 % [facility] Mean Platelet Volume 10.8 7.6 - 12.9 fL [facility] NRBC% auto 0.0 % [facility] NRBC Absolute 0.000 0.000 - 0.000 x10(3)/ L [facility] Blood 10/26/2023 12:5 9 AM EST 10/26/2023 1:13 AM EST Narrative Resulting Agency Comment Spec In Lab Amelia Ngo MD HEMATOLOGY ORDERABLE S [facility] [place] [address] * POCT Glucose (10/26/2023 12:59 AM EST) Glucose, POC 105 65 - 199 mg/dL [facility] Comment: Supplemental ranges: <140 mg/dL before meals <180 mg/dL all other times of the day Blood 10/26/2023 12:5 9 AM EST 10/26/2023 12:59 AM EST Dedra Arrington DO POINT OF CA RE TEST ORDERABLES Performing Organization Address [facility] Co de Phone Number [facility] [place] [address] * (ABNORMAL) Phosphorus (10/26/2023 12:59 AM EST) Phosphorus 2.3(L) 2.5 - 4.5 mg/dL [facility] Blood 10/26/2023 12:5 9 AM EST 10/26/2023 1:13 AM EST Narrative Resulting Agency Comment Spec In Lab Yoel Sethi Jr., MD CHEMISTRY ORDERA BLES Performing Organization Address [facility] Co de Phone Number [facility] [place] [address] * Magnesium (10/26/2023 12:59 AM EST) Magnesium 0.97 0.69 - 1.07 mmol/L [facility] Comment:result rechecked-JSJ Blood 10/26/2023 12:5 9 AM EST 10/26/2023 1:13 AM EST Narrative Resulting Agency Comment Spec In Lab Yoel Sethi Jr., MD CHEMISTRY ORDERA BLES Performing Organization Address [facility] [place] [facility] Co de Phone Number [facility] [place] [address] * (ABNORMAL) Basic Metabolic Panel (non-fasting) (10/26/2023 12:59 AM EST) Glucose 100 65 - 199 mg/dL [facility] Comment:Diabetes: >=200 mg/d L plus symptoms Blood Urea Nitrogen 23(H) 10 - 20 mg/dL [facility] Creatinine 0.87 0.80 - 1.50 mg/dL [facility] Sodium 139 135 - 145 mmol/L [facility] Potassium 3.9 3.5 - 5.0 mmol/L [facility] Comment: Please note: ??Patients with WBC >100,000 may have falsely elevated Potassium levels. ??For accurate Potassium quantification in these patients send serum separator tube (gold top) for subsequent determinations. ??Contact the Clinical Chemistry Laboratory if there are any questions. Chloride 109(H) 98 - 107 mmol/L [facility] Carbon Dioxide 20(L) 22 - 31 mmol/L [facility] Anion Gap 10 5 - 15 mmol/L [facility] Calcium 8.0(L) 8.5 - 10.5 mg/dL [facility] Est Glomerular Filtration Rate 101 >=60 mL/min/1. 73 m?? [facility] Comment: This patient's estimated GFR was [...] MD CHEMISTRY ORDERABL ES Performing Organization Address City/[facility]/ZIP Co de Phone Number [facility] [place] [address] * POCT Glucose (10/25/2023 8:57 PM EST) Glucose, POC 85 65 - 199 mg/dL [facility] Comment: Supplemental ranges: <140 mg/dL before meals <180 mg/dL all other times of the day Blood 10/25/2023 8:57 PM EST 10/25/2023 8:57 PM EST Dedra Arrington DO POINT OF CA RE TEST ORDERABLES [facility] [place] [address] * POCT Glucose (10/25/2023 3:26 PM EST) Glucose, POC 97 65 - 199 mg/dL [facility] Comment: Supplemental ranges: <140 mg/dL before meals <180 mg/dL all other times of the day Blood 10/25/2023 3:26 PM EST 10/25/2023 3:26 PM EST Dedra Arrington DO POINT OF CA RE TEST ORDERABLES Performing Organization Address [facility] Co de Phone Number [facility] [place] [address] * EKG 12 Lead (10/25/2023 11:39 AM EST) Ventricular rate 78 BPM MUSE SYSTEM Atrial Rate 78 BPM MUSE SYSTEM P-R Interval 132 ms MUSE SYSTEM QRS Duration 110 ms MUSE SYSTEM Q-T Interval 392 ms MUSE SYSTEM QTC Calculated (Bezet) 446 ms MUSE SYSTEM Calculated P [place] 66 degrees MUSE SYSTEM Calculated R [place] 3 degrees MUSE SYSTEM Calculated T [place] 65 degrees MUSE SYSTEM INTERPRETATION Normal sinus rhythm Incomplete right bundle branch block Nonspecific T wave abnormality Abnormal ECG No previous ECGs available Confirmed by MD Gio, Maritza ([id number]) on 10/26/2023 7:18:06 PM MUSE SYSTEM 10/25/2023 11:3 9 AM EST 10/26/2023 7:18 PM EST Yoel Sethi Jr., MD ECG ORDERABLES Performing Organization Address City/[facility] Co de Phone Number MUSE SYSTEM * POCT Glucose (10/25/2023 11:06 AM EST) Glucose, POC 96 65 - 199 mg/dL [facility] Comment: Supplemental ranges: <140 mg/dL before meals <180 mg/dL all other times of the day Blood 10/25/2023 11:0 6 AM EST 10/25/2023 11:06 AM EST Dedra Arrington DO POINT OF CA RE TEST ORDERABLES Performing Organization Address City/State/[facility] Co de Phone Number [facility] [place] [address] * Phosphorus (10/25/2023 10:50 AM EST) Pathologist [facility] Phosphorus 2.8 2.5 - 4.5 mg/dL [facility] Blood Venous Draw / Unknown 10/25/2023 10:50 AM EST 10/25/2023 11:07 AM EST Narrative Resulting Agency Comment Spec In Lab Amelia Ngo MD CHEMISTRY ORDERABLES Performing Organization Address [facility] [place] [facility] de Phone Number [facility] [place] [address] * (ABNORMAL) Magnesium (10/25/2023 10:50 AM EST) [facility] Magnesium 0.57(L) 0.69 - 1.07 mmol/L [facility] Blood Venous Draw / Unknown 10/25/2023 10:50 AM EST 10/25/2023 11:07 AM EST Narrative Resulting Agency Comment Spec In Lab Amelia Ngo MD CHEMISTRY ORDERABLES Performing Organization Address [facility] [place] [facility] de Phone Number [facility] [place] [address] * (ABNORMAL) Differential, Automated (10/25/2023 10:50 AM EST) [facility] Neutrophil % 83.2 % [facility] Neutrophil Absolute 30.11(H) 1.70 - 6.10 x10(3)/mc L [facility] Lymph % 5.5 % [facility] Lymphocytes Abs 2.0 0.9 - 3.2 x10(3)/mc L [facility] Monocyte % 6.5 % [facility] Monocyte Abs 2.3(H) 0.3 - 0.9 x10(3)/mc L [facility] Eos % 0.0 % [facility] Eosinophils Abs 0.0 0.0 - 0.4 x10(3)/mc L [facility] Basophil % 0.4 % [facility] Baso Absolute 0.1 0.0 - 0.1 x10(3)/mc L [facility] Immature Gran % 4.40 % [facility] Comment: Immature granulocytes(IG's)percentage and absolute count will include metamyelocytes, myelocytes, and promyelocytes. Blood smears from CBCs yielding IG's will be scanned manually for concordance. If this scan disagrees with the automated IG or if promyelocytes are noted, a manual differential will be performed. Immature Gran Absolute 1.58(H) 0.00 - 0.04 x10(3)/mc L [facility] Blood 10/25/2023 10:5 0 AM EST 10/25/2023 11:07 AM EST Narrative Resulting Agency Comment Spec In Lab Amelia Ngo MD HEMATOLOGY ORDERABLE S [facility] [place] [address] * (ABNORMAL) Hemogram (10/25/2023 10:50 AM EST) White Blood Cell 36.2(Crit ical) 4.0 - 9.5 x10(3)/mc L [facility] Comment: This result has been called to DEE MCLEAN by Alberta Shankar on 10 25 2023 at 1136, and has been read back. Red Blood Cell 2.91(L) 4.58 - 5.54 x10(6)/mc L [facility] Hemoglobin 8.8(L) 13.7 - 16.5 g/dL [facility] Comment: This result has been called to DEE MCLEAN by Alberta Shankar on 10 25 2023 at 1136, and has been read back. Hematocrit 25.6(L) 40.5 - 48.5 % [facility] Mean Cell Volume 88.0 82.9 - 93.1 fL [facility] Mean Cell Hemoglobin 30.2 27.5 - 32.1 pg [facility] Mean Cell Hemoglobin Concentration 34.4 32.0 - 35.7 g/dL [facility] Platelet 227 145 - 357 x10(3)/mc L [facility] RDW Standard Deviation 45.5(H) 36.0 - 45.0 fL [facility] RDW coefficient of variation 14.1(H) 11.4 - 13.8 % [facility] Mean Platelet Volume 11.1 7.6 - 12.9 fL [facility] NRBC% auto 0.0 % [facility] NRBC Absolute 0.000 0.000 - 0.000 x10(3)/mc L [facility] Blood 10/25/2023 10:5 0 AM EST 10/25/2023 11:07 AM EST Narrative Resulting Agency Comment Spec In Lab Amelia Ngo MD HEMATOLOGY ORDERABLE S [facility] [place] [address] * (ABNORMAL) Comprehensive metabolic panel (non-fasting) (10/25/2023 10:50 AM EST) Glucose 91 65 - 199 mg/dL [facility] Comment:Diabetes: >=200 mg/d L plus symptoms Blood Urea Nitrogen 26(H) 10 - 20 mg/dL [facility] Creatinine 1.04 0.80 - 1.50 mg/dL [facility] Sodium 139 135 - 145 mmol/L [facility] Potassium 3.7 3.5 - 5.0 mmol/L [facility] Comment: Please note: ??Patients with WBC >100,000 may have falsely elevated Potassium levels. ??For accurate Potassium quantification in these patients send serum separator tube (gold top) for subsequent determinations. ??Contact the Clinical Chemistry Laboratory if there are any questions. Chloride 106 98 - 107 mmol/L [facility] Carbon Dioxide 21(L) 22 - 31 mmol/L [facility] Anion Gap 12 5 - 15 mmol/L [facility] Calcium 8.1(L) 8.5 - 10.5 mg/dL [facility] Protein, Total 5.4(L) 6.1 - 8.0 g/dL [facility] Albumin 3.2 3.2 - 5.2 g/dL [facility] Aspartate Aminotransferase 40(H) 0 - 39 unit/L [facility] Alanine Aminotransferase 27 0 - 55 unit/L [facility] Alkaline Phosphatase 54 40 - 130 unit/L [facility] Bilirubin, Total 0.3 0.2 - 1.3 mg/dL [facility] Est Glomerular Filtration Rate 84 >=60 mL/min/1. 73 m?? [facility] Comment: This patient's estimated GFR was [...] MD CHEMISTRY ORDERA BLES Performing Organization Address City/[facility]/ZIP Co de Phone Number [facility] [place] [address] * Lactate, whole blood, send to lab ([facility]) (10/25/2023 10:50 AM EST) Lactate WB 1.6 0.5 - 2.2 mmol/L [facility] Blood 10/25/2023 10:5 0 AM EST 10/25/2023 11:06 AM EST Narrative Resulting Agency Comment Spec In Lab Yoel Sethi Jr., MD CHEMISTRY ORDERA BLERad [facility] [place] [address] * Blood culture (10/25/2023 10:50 AM EST) Blood Culture No growth at 5 days. [facility] Blood 10/25/2023 10:5 0 AM EST 10/25/2023 11:40 AM EST Comment:R wrist Narrative Resulting Agency Comment Spec In Lab Yoel Sethi Jr., MD MICROBIOLOGY - B LOOD ORDERABLES Performing Organization Address [facility] [place] [facility] Co de Phone Number [facility] [place] [address] * Blood culture (10/25/2023 10:40 AM EST) Blood Culture No growth at 5 days. [facility] Blood 10/25/2023 10:4 0 AM EST 10/25/2023 11:40 AM EST Comment:RH Narrative Resulting Agency Comment Spec In Lab Yoel Sethi Jr., MD MICROBIOLOGY - B LOOD ORDERABLES Performing Organization Address [facility] de Phone Number [facility] [place] [address] * POCT Glucose (10/25/2023 9:55 AM EST) Glucose, POC 100 65 - 199 mg/dL [facility] Comment: Supplemental ranges: <140 mg/dL before meals <180 mg/dL all other times of the day Blood 10/25/2023 9:55 AM EST 10/25/2023 9:55 AM EST Yoel Sethi Jr., MD POINT OF CARE TE ST ORDERABLES Performing Organization Address [facility] [place] [facility] Co de Phone Number [facility] [place] [address] * XR Fluoro No Rad <1Hr - OR Use (10/25/2023 9:38 AM EST) Narrative Dicom, Auditing User - 10/25/2023 9:38 AM EST This exam is auto-finalizing. No interpretation was done. Selma Brian MD IMG FLUORO ORDERAB LES * (ABNORMAL) Urine culture Cystoscopic Urine (10/25/2023 9:13 AM EST) Urine Culture Greater than 50,000 cfu/mL Pseudomonas aeruginosa Greater than 50,000 cfu/mL Enterococcus faecalis (A) [facility] Organism Pseudomonas aeruginosa(A) [facility] Organism Enterococcus faecalis(A) [facility] Cystoscopic Urine 10/25/2023 9:13 AM EST [...] Brian MD MICROBIOLOGY - GEN ERAL ORDERABLES [facility] [place] [address] * Type and screen ([facility]/LAURIE) (10/25/2023 8:43 AM EST) ABORH Type AB POSITIVE [facility] Patient BB History Not Found [facility] Expires at [id number] on: 10-28-2023 [facility] Ab Screen Interp Negative [facility] Blood 10/25/2023 8:43 AM EST 10/25/2023 8:43 AM EST Narrative [facility] - 10/25/2023 8:43 AM EST This Type and Screen result is only valid at the [facility] Resulting Agency Comment Spec In Lab Cheyanne Lemon MD BLOOD BANK LAB ORDAnu DIXON [facility] [place] [address] * Hemoglobin A1c (10/25/2023 7:58 AM EST) Hemoglobin A1c 4.8 4.3 - 5.6 % [facility] Comment: Reference Range: 4.3 - 5.6% [...] Mellitus, Diabetes Care 2013; 36: Suppl. 1, E81-08 Estimated Average Glucose 92 mg/dL [facility] Comment: Note: The eAG calculation has not been proven valid for women, individuals below 18 years old or above 70 years old, or individuals with hemoglobinopathies. Estimated average glucose (eAG) is calculated from the equation described in: Sal DM, Jorge J, Eddie R, et al. ??Translating the A1C assay into estimated average glucose values. ??Diabetes Care 2008:31(8):2654-1929. Additional resources are available on the ADA website (diabetes.org). Blood Venous Draw / Unknown 10/25/2023 7:58 AM EST 10/25/2023 10:54 AM EST Narrative Resulting Agency Comment Spec In Lab Nallely E Caille SEPARATIONS SCIENTIST CHEMISTRY ORDERA BLES Performing Organization Address City/[facility] Co de Phone Number [facility] [place] [address] * Phosphorus (10/25/2023 7:58 AM EST) Phosphorus 3.0 2.5 - 4.5 mg/dL [facility] Blood Venous Draw / Unknown 10/25/2023 7:58 AM EST 10/25/2023 8:13 AM EST Narrative Resulting Agency Comment Spec In Lab Nallely E Caille SEPARATIONS SCIENTIST CHEMISTRY ORDERA BLES Performing Organization Address [facility] [place] [facility] Co de Phone Number [facility] [place] [address] * (ABNORMAL) Magnesium (10/25/2023 7:58 AM EST) [facility] Magnesium 0.55(L) 0.69 - 1.07 mmol/L [facility] Blood Venous Draw / Unknown 10/25/2023 7:58 AM EST 10/25/2023 8:13 AM EST Narrative Resulting Agency Comment Spec In Lab Nallely Coles APRN CHEMISTRY ORDERA BLES Performing Organization Address City/[facility] Co de Phone Number [facility] [place] [address] * Scan, Peripheral Blood (10/25/2023 7:58 AM EST) [facility] Plat estimate Normal [facility] RBC Morphology Abnormal [facility] Ovalocytes 1-5 /HPF [facility] Dean Cells 1-5 /HPF [facility] Vacuolated Neut Present [facility] Blood 10/25/2023 7:58 AM EST 10/25/2023 8:11 AM EST Narrative Resulting Agency Comment Spec In Lab Cheyanne Lemon MD HEMATOLOGY ORDERABL ES Performing Organization Address [facility] [place] [facility] Co de Phone Number [facility] [place] [address] * (ABNORMAL) Differential, Automated (10/25/2023 7:58 AM EST) [facility] Neutrophil % 83.8 % [facility] Neutrophil Absolute 23.81(H) 1.70 - 6.10 x10(3)/mc L [facility] Lymph % 3.8 % [facility] Lymphocytes Abs 1.1 0.9 - 3.2 x10(3)/mc L [facility] Monocyte % 6.7 % [facility] Monocyte Abs 1.9(H) 0.3 - 0.9 x10(3)/mc L [facility] Eos % 0.1 % [facility] Eosinophils Abs 0.0 0.0 - 0.4 x10(3)/mc L [facility] Basophil % 0.2 % [facility] Baso Absolute 0.1 0.0 - 0.1 x10(3)/mc L [facility] Immature Gran % 5.40 % [facility] Comment: Immature granulocytes(IG's)percentage and absolute count will include metamyelocytes, myelocytes, and promyelocytes. Blood smears from CBCs yielding IG's will be scanned manually for concordance. If this scan disagrees with the automated IG or if promyelocytes are noted, a manual differential will be performed. Immature Gran Absolute 1.54(H) 0.00 - 0.04 x10(3)/mc L [facility] Blood 10/25/2023 7:58 AM EST 10/25/2023 8:11 AM EST Narrative Resulting Agency Comment Spec In Lab Cheyanne Lemon MD HEMATOLOGY ORDERABL ES Performing Organization Address City/State/[facility] Co de Phone Number [facility] [place] [address] * (ABNORMAL) Hemogram (10/25/2023 7:58 AM EST) White Blood Cell 28.4(H) 4.0 - 9.5 x10(3)/mc L [facility] Red Blood Cell 3.76(L) 4.58 - 5.54 x10(6)/ L [facility] Hemoglobin 11.2(L) 13.7 - 16.5 g/dL [facility] Hematocrit 32.9(L) 40.5 - 48.5 % [facility] Mean Cell Volume 87.5 82.9 - 93.1 fL [facility] Mean Cell Hemoglobin 29.8 27.5 - 32.1 pg [facility] Mean Cell Hemoglobin Concentration 34.0 32.0 - 35.7 g/dL [facility] Platelet 168 145 - 357 x10(3)/mc L [facility] RDW Standard Deviation 44.8 36.0 - 45.0 fL [facility] RDW coefficient of variation 14.0(H) 11.4 - 13.8 % [facility] Mean Platelet Volume 11.3 7.6 - 12.9 fL [facility] NRBC% auto 0.0 % [facility] NRBC Absolute 0.000 0.000 - 0.000 x10(3)/mc L [facility] Blood 10/25/2023 7:58 AM EST 10/25/2023 8:11 AM EST Narrative Resulting Agency Comment Spec In Lab Cheyanne Lemon MD HEMATOLOGY ORDERABL ES [facility] [place] [address] * (ABNORMAL) Basic Metabolic Panel (non-fasting) (10/25/2023 7:58 AM EST) Glucose 101 65 - 199 mg/dL [facility] Comment:Diabetes: >=200 mg/d L plus symptoms Blood Urea Nitrogen 26(H) 10 - 20 mg/dL [facility] Creatinine 1.11 0.80 - 1.50 mg/dL [facility] Sodium 136 135 - 145 mmol/L [facility] Potassium 4.0 3.5 - 5.0 mmol/L [facility] Comment: Please note: ??Patients with WBC >100,000 may have falsely elevated Potassium levels. ??For accurate Potassium quantification in these patients send serum separator tube (gold top) for subsequent determinations. ??Contact the Clinical Chemistry Laboratory if there are any questions. Chloride 105 98 - 107 mmol/L [facility] Carbon Dioxide 14(L) 22 - 31 mmol/L [facility] Anion Gap 17(H) 5 - 15 mmol/L [facility] Calcium 8.5 8.5 - 10.5 mg/dL [facility] Est Glomerular Filtration Rate 78 >=60 mL/min/1. 73 m?? [facility] Comment: This patient's estimated GFR was [...] Lab Cheyanne Lemon MD CHEMISTRY ORDERABLE S [facility] [address] [place] [address] documented in this encounter Visit Diagnoses Not on filedocumented in this encounter Admitting Diagnoses Diagnosis Septic shock documented in this encounter Administered Medications Inactive Administered Medications - up to 3 most recent administrations Medication Order MAR Action Action Date Dose Rate Site acetaminophen (Tylenol) tablet 650 mg 650 mg, [...] Given 11/05/2023 2:44 PM EST 650 mg baclofen (Lioresal) tablet 20 mg 20 mg, Oral, 3 TIMES DAILY, First dose on 10/25/23 at 1130, Until Discontinued, Routine Given 11/09/2023 2:3 5 PM EST 20 mg Given 11/09/2023 9:35 AM EST 20 mg Given 11/08/2023 9:06 PM EST 20 mg divalproex ER (Depakote ER) tablet 500 [...] TIMES DAILY, First dose on 10/25/23 at 1245, Until Discontinued, Routine Given 11/09/2023 12:00 PM EST 100 mg Given 11/08/2023 4:25 PM EST 100 mg Given 11/08/2023 12:20 PM EST 100 mg guaiFENesin (Robitussin) (20 mg/mL) oral liquid 200 [...] 12:47 AM EST 25 mg iohexoL (Omnipaque) (300 mg/mL) solution PRN, Starting on Thu10/25/23 at 0854, Until Thu10/25/23 at 1008, Intra-Operative (Intra-Procedure), Routine Given 10/25/2023 8:54 AM EST 50 mLs 19- Surgical Site iohexoL (Omnipaque) (350 mg/mL) solution 0-200 mL [...] Given 11/02/2023 5:37 AM EST 3 mLs LORazepam (Ativan) tablet 0.5 mg 0.5 mg, Oral, 3 TIMES DAILY PRN, Starting on Thu10/29/23 at 1430, Until Thu11/09/23 at 1733, Anxiety, Routine Given 11/09/2023 9:35 AM EST 0.5 mg Given 11/08/2023 9:05 PM EST 0.5 mg Given 11/07/2023 8:58 PM EST 0.5 mg melatonin tablet 6 mg 6 mg, [...] Given 11/07/2023 9:15 AM EST 1 tablet ondansetron (pf) (Zofran) (2 mg/mL) injection 4 mg 4 mg, Intravenous, EVERY 8 HOURS PRN, Starting on Thu11/05/23 at 1720, Until Thu11/09/23 at 1733, Nausea Given 11/05/2023 5:25 PM EST 4 mg pantoprazole EC (Protonix) tablet 40 mg 40 mg, Oral, DAILY, First dose on [facility] 10/29/23 at 0900, Until Discontinued, DO NOT CRUSH OR OPEN, Routine Given 11/09/2023 9:35 AM EST 40 mg Given 11/08/2023 12:18 PM EST 40 mg Given 11/07/2023 9:15 AM EST 40 mg pregabalin (Lyrica) capsule 25 mg 25 mg, Oral, 3 TIMES DAILY, First dose on [place] 10/25/23 at 1130, Until Discontinued, Routine Given 11/09/2023 2:3 5 PM EST 25 mg Given 11/09/2023 9:35 AM EST 25 mg Given 11/08/2023 9:06 PM EST 25 mg senna (Senokot) tablet 34.4 mg 34.4 mg, Oral, NIGHTLY, First dose on [place] 10/25/23 at 2100, Until Discontinued, Routine Given 11/08/2023 9:05 PM EST 34.4 mg Given 11/07/2023 9:01 PM EST 34.4 mg Given 11/06/2023 8:53 PM EST 34.4 mg sodium chloride (Pulmosal) 7 % nebulizer solution Nebulization, 2 TIMES DAILY, First dose on Thu11/02/23 at 1015, Until Discontinued Given 11/09/2023 9:35 AM EST 4 mLs Given 11/08/2023 7:54 PM EST 4 mLs Given 11/08/2023 12:22 PM EST 4 mLs sodium chloride 0.9 % (flush) (BD PosiFlush Normal Saline 0.9) flush 10 mL 10 mL, Intravenous, DAILY PRN, Starting on 10/25/23 at 1528, Until Thu11/09/23 at 1733, For use when accessing Implantable Port, Routine sodium chloride 0.9 % (flush) (BD PosiFlush Normal Saline 0.9) flush 5 mL 5 mL, Intravenous, 2 TIMES DAILY, First dose on 10/25/23 at 1100, Until Discontinued, Routine Given 11/09/2023 9:36 AM EST 5 mLs Given 11/08/2023 9:06 PM EST 5 mLs Given 11/08/2023 12:19 PM EST 5 mLs tamsulosin (Flomax) capsule 0.4 mg 0.4 mg, Oral, DAILY, First dose on 10/26/23 at 1215, Until Discontinued, DO NOT CRUSH [...] Given 11/06/2023 8:53 PM EST 50 mg documented in this encounter Active and Recently Administered Medications Times are shown in EST. Scheduled Medication Order 11/07/2023 11/08/2023 11/09/2023 baclofen (Lioresal) tablet 20 mg 20 mg, Oral, 3 TIMES DAILY, First dose on 10/25/23 at 1130, Until Discontinued, Routine 0915 (Given - Provider: Margarita Loomis RN)1539 (Given - Provider: Presley Moe LPN)2100 (Given - Provider: All Quintero RN) 1219 (Given - Provider: Margarita Loomis RN)1625 (Given - Provider: Margarita Loomis RN)2106 (Given - Provider: Lauri Camarillo RN) 0935 (Given - Provider: Margarita Loomis RN)1435 (Given - Provider: Twin Galindo RN) divalproex ER (Depakote ER) tablet 500 [...] Loomis RN) 0600 (Not Given - Provider: Lauri Camarillo RN - Reason: Patient/family refused)1200 (Given - Provider: Margarita Loomis RN) heparin (porcine) (5,000 units/1 mL) subcutaneous injection 5,000 Units 5,000 Units, Subcutaneous, EVERY 8 HOURS SCHEDULED, First dose on Thu10/25/23 at 1400, Until Discontinued, Routine 0537 (Given - Provider: Luz Walker RN)1539 (Given - Provider: Presley Moe LPN)2117 (Given - Provider: All Quintero RN) 0600 (Not Given - Provider: Lauri Camarillo RN - Reason: Patient/family refused)1625 (Given - Provider: Margarita Loomis RN)2106 (Given - Provider: Lauri Camarillo RN) 0600 (Not Given - Provider: Lauri Camarillo RN - Reason: Patient/family refused)1435 (Given - Provider: Twin Galindo, SWETHA) ipratropium-albuteroL (Duoneb) 0.5 mg-3 mg(2.5 mg base)/3 mL nebulizer solution 3 mL 3 mL, Nebulization, EVERY 4 HOURS, First dose on Thu10/28/23 at 0400, Until Discontinued, Routine 0304 (Given - Provider: Luz Walker RN)0916 (Given - Provider: Margarita Loomis RN)1222 (Given - Provider: Margarita Loomis RN)1600 (Not Given - Provider: Margarita Loomis RN - Reason: Patient/family refused)2101 (Given - Provider: All Quintero RN) 0000 [...] Discontinued, Routine 2058 (Given - Provider: All Quintero RN) 210 [...] on Thu10/26/23 at 1200, Until Discontinued, Routine 0915 (Given [...] (after last modification) on Kathy 11/05/23 at 2000, Last dose on 11/08/23 at 1999, Administer over 4 Hours, [...] Lauri Camarillo RN)0741 (Stopped - Provider: Margarita Loomis RN)1220 (New Bag - Provider: Margarita Loomis RN)1620 (Stopped - Provider: Margarita Loomis RN)1955 (New Bag - Provider: Lauri Camarillo RN)2355 (Stopped - Provider: Lauri Camarillo RN) potassium chloride ER (Klor-Con M) crystal tablet 40 mEq (COMPLETED) 40 mEq, Oral, ONCE, 1 dose, On 11/09/23 at 0715, May dissolve if unable to [...] RN) 1218 (Given - Provider: Margarita Loomis RN)162 (Given - Provider: Margarita Loomis RN)210 (Given - Provider: Lauri Camarillo RN) 0935 (Given - Provider: Margarita Loomis RN)143 (Given - Provider: Twin Galindo RN) senna (Senokot) tablet 34.4 mg 34.4 mg, Oral, NIGHTLY, First dose on 10/25/23 at 2100, Until Discontinued, Routine 2100 (Given - Provider: All Quintero RN) 2104 (Given - Provider: Lauri Camarillo RN) sodium chloride (Pulmosal) 7 % nebulizer solution Nebulization, 2 TIMES DAILY, First dose on Thu11/02/23 at 1015, Until Discontinued 915 (Given - Provider: Margarita Loomis RN)210 (Given - Provider: All Quintero RN) 1222 (Given - Provider: Margarita Loomis RN)195 (Given - Provider: Lauri Camarillo RN) 0935 (Given - Provider: Margarita Loomis RN) sodium chloride 0.9 % (flush) (BD PosiFlush Normal Saline 0.9) flush 5 mL 5 mL, Intravenous, 2 TIMES DAILY, First dose on 10/25/23 at 1100, Until Discontinued, Routine 09 (Given - Provider: Margarita Loomis RN)2100 (Not [...] CHEW, Routine 0916 (Given - Provider: Margarita Loomis, RN) 1218 (Given - Provider: Margarita Loomis, RN) 0935 (Given - Provider: Margarita Loomis, SWETHA) traZODone (Desyrel) tablet 50 mg 50 mg, Oral, NIGHTLY, First dose on 10/25/23 at 2100, Until Discontinued, Routine 2100 (Given - Provider: All Quintero RN) 210 (Given - Provider: Lauri Camarillo, SWETHA) PRN Medication Order 11/07/2023 11/08/2023 11/09/2023 acetaminophen [...] indicated., Routine 0634 (Given - Provider: Lauri Camarillo, SWETHA) guaiFENesin (Robitussin) (20 mg/mL) oral liquid 200 [...] Starting on Kathy 10/29/23 at 1119, Until Thu11/09/23 at 1733, Wheezing, for breakthrough SOB not adequately treated by scheduled duonebs, Routine 1218 (Given - Provider: Margarita Loomis, RN) lidocaine (Xylocaine) 1% (10 mg/mL) injection 3 mg 3 mg (0.3 mL), Subcutaneous, ONCE PRN, 1 dose, Starting on 10/25/23 at 1003, Until Thu11/09/23 at 1733, for discomfort with PIV insertion, Routine LORazepam (Ativan) tablet 0.5 mg 0.5 mg, Oral, 3 TIMES DAILY PRN, Starting on Kathy 10/29/23 at 1430, Until Thu11/09/23 at 1733, Anxiety, Routine 1538 (Given - Provider: Presley Moe LPN)2058 (Given - Provider: All Quintero RN) 2105 (Given - Provider: Lauri Camarillo RN) 0935 [...] PRN, Starting on 10/25/23 at 1003, Until Thu11/09/23 at 1733, flush, Flush pertains to all indwelling lines. Flush per protocol found in the job aid using the link provided on this medication record., Routine documented in this encounter Care Teams Sky Diver Relationship Specialty Start Date End Date Genevieve Baez MD [address] [place] [id number] PCP - General Family Medicine 07/22/23 documented as of this encounter
--- OUTSIDE RECORDS SUMMARY | 2024-07-22 15:04 | XMS_ITS | Encounter Summary ---
[place] [address] Care Team Providers Care Parts Cleaner Name Role Phone Genevieve Baez MD Primary Care Provider [phone] Reason for Referral * Consultation (Routine) - Closed Specialty Diagnoses / Procedures Referred By Contac t Referred To Contact Infectious Diseases Diagnoses Osteomyelitis, unspecified site, unspecified type Genevieve Baez MD [address] [place] [address] [facility] [address] [place] [phone] Referral ID Status Reason Start Date Expiration Date V isits Requested Visits Authorized [id number] Closed Consult, Test & Treat PCP Updated and/or Approved 07/22/2023 07/21/2024 12 12 Encounter Details Date Type Department Care Team (Latest Contact Info) Description 07/22/2023 Transcribe Orders eDH Incoming Referrals [phone] Genevieve Baez MD [address] [place] [address] Osteomyelitis, unspecified site, unspecified type [...] Order Schedule Referral to Infectious Disease and [facility] Outpatient Referral Routine Osteomyelitis, unspecified site, unspecified type Ordered: 07/22/2023 documented as of this encounter Visit Diagnoses Diagnosis Osteomyelitis, unspecified site, unspecified type documented in this encounter Care Teams Parts Cleaner Relationship Specialty Start Date End Date Genevieve Baez MD [address] [place] [id number] PCP - General Family Medicine 07/22/23 documented as of this encounter
--- OUTSIDE RECORDS SUMMARY | 2024-07-22 15:04 | XMS_ITS | Encounter Summary ---
[place] [address] Care Team Providers Care Ladler Name Role Phone Lauri Dallas MD Primary Care Provider [phone] Encounter Details Date Type Department Care Team (Late st Contact Info) Description 06/13/2022 1:00 PM EDT [place] [phone] Lucie Reilly RN S/P C4-T2 PSIF for C6-7 bilateral facet dislocation 10/27/20 Dr. Tong; Quadriplegia; Pressure injury of left buttock, stage 4; Chronic recurrent multifocal osteomyelitis Social History Tobacco [...] Sign Reading Time Taken Comments Blood Pressure 107/71 06/13/2022 2:05 PM EDT Pulse 64 06/13/2022 2:05 PM EDT Temperature 36.2 ??C (97.1 ??F) 06/13/2022 2:05 PM ED T Respiratory Rate 16 06/13/2022 2:05 PM EDT Oxygen Saturation 99% 06/13/2022 2:05 PM EDT Inhaled Oxygen Concentration - - Weight - - Height - - Body Mass Index - - documented in this encounter Patient Instructions * Patient Instructions* Lucie Reilly RN - 06/13/2022 1:00 PM EDT Left Ischium: Change dressing every other day or sooner for 50% or greater strike through drainage. Remove old dressing. Cleanse wound with wound cleanser or normal saline and gauze. Apply VASHE soaked gauze for 7 minutes and do not rinse Apply skin prep to periwound skin (skin around the wound). Gently tuck antimicrobial Kerlix into the wound, leaving a 2 tail for easy retrieval Cover wound bed with a Mepilex sacral border dressing. Secure edges of dressing with skin prep. Needs pressure mapping with Dennis Trinidad OT Plan to discuss follow-up with a plastic surgeon (Dr. Good) Monitor for signs of infection which may include: Fever Sweats Chills Nausea, Vomiting or Diarrhea Unexplained increase in Blood Glucose levels At or around the wound site: Increased pain Swelling or edema Redness Warmth Purulent drainage (thick yellow/green drainage) Malodor Contact the [facility] with any above symptoms Thursday- Thursday 8:00AM-4:30PM ([phone]). If weekends / holidays / evenings, please report to the Emergency Department. High Protein foods: try to eat 5-6 servings of these per day Beef, chicken, fish Beans, Lentils, peanut butter Namibian and regular yogurt Cheese, eggs Boost, Ensure shakes Protein powder in a smoothie of your choice documented in this encounter Progress Notes * Lucie Reilly RN - 06/13/2022 1:00 PM EDT Images from the original note were not included. [facility] Progress Note Chief Complaint: [...] HTN. He was hospitalized from 07/06/21-08/02/[address] [facility] with chronic recurrent multifocal osteomyelitis for which he has been treated multipl e times with ciprofloxacin, vancomycin and zosyn. He was discharged home for two weeks of oral augmentin and bactrim to complete a four-week course. Readmitted to [facility] on 09/01/21and discharged home December 2021. Patient is now at home with home health care. December 2020-Pressure mapped at [facility] in [place]. Gel cushion in wheelchair Home Health Agency: [facility] Pertinent labs/tests: No recent labwork or imaging in eDH MRI done at [facility] of left ischial area on 03/07/22 ROS: Negative for constitutional symptoms Appetite: fair, has georgian for breakfast, couple of candy bars during the day and then a good supper Pain: no, paraplegic FBS: na PE: Vital Signs:BP 107/71 (BP Location (NBP): Right arm, Patient Position: Sitting, BP Cuff Sizes: Large Adult (32-43 cm)) Pulse 64 Temp 36.2 ??C (97.1 ??F) (Tympanic) Resp 16 SpO2 99% Pleasant, 57 y.o., in NAD. Arrives accompanied by Cary (Mother of his children) Mobility: dependent, motorized chair Edema: no Wound Location 8112/2404/30/22 03/10/22 10/17/21 Measurements 09/19/21 Wound bed Exudate Yudy wound skin Left ischium 2.8 cm x 1.5 cm x 1.5 cm UM: 1.8 cm @12 0.5 cm @ 9 The rest circumferentual to 0.5 cm 3 x 1.3 x 0.7 cm UM [...] epithelial along edges with epibole Moderate serous Lehr, no increased warmth Maceration noted to wound borderd The following photo was taken: Left Ischium 06/13/22 04/30/22 Treatment: Cleansed wound with normal saline and gauze. Wound cleansed with VASHE wound cleanser Removed devitalized tissue, slough with curette down to and including subcutaneous tissue < 20 sq cm. Bleeding: small Silver nitrate applied to epibole Dsg: Applied stoma powder to periwound skin and crusted with skin prep Gently applied Antimicrobial Kerlix into wound bed (primary dressing) and covered with a small sacral border Assessment/Plan: Bruce Velasquez Jr. is a 57 y.o. male with a very complicated medical history. In October 2020 he had a fall (?intoxication) with subsequent paraplegia resulting in a prolonged hospitalization here at [facility] until the beginning of November. His course has been complicated by chronic sacral wounds with infection and ?osteo, neurogenic bladder requiring a suprapubic catheter c/b recurrent urinary tract infections, and chronic constipation requiring ostomy. He was hospitalized from 07/06/21-08/02/[address] [facility] with chronic recurrent multifocal osteomyelitis for which he has been treated multiple times with ciprofloxacin, vancomycin and zosyn. He was dis charged home for two weeks of oral augmentin and bactrim to complete a four-week course. Readmittedto [facility] on 09/01/21and discharged home December 2021. He is currently off all antibiotics. There are no current signs of local or systemic infection. 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 There is rolling of the wound edge along the medial border with some hypergranulation tissue along the edge with maceration noted to the wound borders. Silver nitrate was applied to this area. There is no palpable bone in the wound bed at this time. Patient reports he has been having increased serous drainage without purulence or odor that goes through the Optilock. He reports the dressing gets changed every other day. No reported fever, chills. 02/24/22 MRI Pelvis W/Wo contrast at [facility]. Per report, it showed a pressure ulcer over the Left Ischial Tuberosity. No focal fluid collection to suggest abscess. Interval interval in marrow edema to the left ischial tuberosity. No definite cortical disruption.This may be reactive related to the adjacent ulcer but early osteo cannot be excluded. No current labs on file. He reports a history of DVT and remains on Eliquis. Dressing changed today to antimicrobial Kerlix (primary dressing) gently inserted into wound bed for antimicrobial properties and absorption followed by a small sacral border. Hydroguard silicone cream was applied to the periwound skin to provide additional protection from friction and shear. Discussed with patient the importance of increasing his protein intake and the nutrient deficiencies with his current dietary intake. Recommended use of protein drinks if he is not interested in eating, they stated that an order for James was placed at his visit in March but they had not received it (no call had been received by the clinic regarding this). They are currently using the [facility] out of the [facility] and [place], phone number is . Per the pharmacy,[place] supplemental drinks. He reports he is getting some protein in his diet but not as recommended for wound healing. Patient is a non- cigarette smoker but does have medical card for marijuana and smokes this substance on a daily basis. Discussed with patient that there is discoloration in the center of the wound bed and the periwoundskin has signs of pressure related changes in that area, he states that he spends most of his time lying on his back in his bed. He reports that he has an alternating air mattress. Reviewed the need to off load even with an alternating air mattress, suggested lying on his sides or placing a pillow u nder his thigh to off load the ischium. He has a motorized wheelchair but reports that it has been about 1 year since his cushion was pressure mapped. Last [facility] follow-up was 09/2001. Plan to arrange for updated pressure mapping with Dennis Trinidad OT and schedule an evaluation with plastic surgeon Dr. Rodrigo Good for surgical closure options once adequately offloaded and adequate nutritional parameters are met. Plan: Recommend if no recent CBC, ESR, CRP, pre-albumin and albumin (can be ordered by PCP and performed locally) Plan to schedule updated Pressure mapping Surgical [...] with any above symptoms Thursday- Thursday 8:00AM-4:30PM ([phone]). If weekends / holidays / evenings, please [...] Dr. Tong Arthrodesis status Quadriplegia Quadriplegia, unspecified Pressure injury of left buttock, stage 4 Chronic recurrent multifocal osteomyelitis documented in this encounter Care Teams Ladler Relationship Specialty Start Date End Date Lauri Dallas MD PCP - General Family Medicine 02/19/22 07/21/23 documented as of this encounter
--- OUTSIDE RECORDS SUMMARY | 2024-07-22 15:05 | XMS_ITS | Encounter Summary ---
Author Organization [facility] [place] [address] Care Team Providers Care Renal Case Manager Name Role Phone Rayna Pino APRN Primary Care Provider Encounter Details Date Type Department Care Team (Late st Contact Info) Description 12/25/2020 Ancillary Procedure Radiology Library at [facility] [place] [phone] Rayna Pino APRN [address] [place] [address] [place] [address] Social History Tobacco Use Types Packs/Day Years [...] Procedure Name Priority Date/Time Associated Diagnosis Comments FILM LIBRARY STORAGE ONLY DX SPINE Routine 12/25/2020 12:00 AM EST documented in this encounter Results * Film Library- Storage Only DX Spine (12/25/2020 12:00 AM EST) Narrative RANJIT RAD - 12/29/2020 1:52 AM EST This exam is auto-finalizing. It's purpose is for storage only. Rayna Pino APRN Fawn FILM LIBRARY ORD ERABLES DEENA [place], [place] documented in this encounter Visit Diagnoses Not on filedocumented in this encounter Care Teams Renal Case Manager Relationship Specialty Start Date End Date Rayna Pino APRN [address] [place] [address] PCP - General Family Medicine 07/01/18 08/21/21 documented as of this encounter
--- OUTSIDE RECORDS SUMMARY | 2024-07-22 15:05 | XMS_ITS | Encounter Summary ---
Author Organization [facility] [place] [address] Care Team Providers Care Armored Machine Operator Name Role Phone Rayna Pino APRN Primary Care Provider Reason for Visit * - Closed Specialty Diagnoses / Procedures Referred By Contmadan t Referred To Contact Procedures Film Library- Storage Only DX Abdomen Rayna Pino APRN [address] [place] [address] Referral ID Status Reason Start Date Expiration Date Visits Re quested Visits Authorized [id number] Closed 04/05/2021 04/05/2022 1 1 Encounter Details Date Type Department Care Team (Late st Contact Info) Description 03/30/2021 12:05 AM EDT Ancillary Procedure Radiology Library at [facility] [place] [phone] Rayna Pino APRN [address] [place] [address] Social History Tobacco Use Types Packs/Day Years [...] Diagnosis Comments FILM LIBRARY STORAGE ONLY DX ABDOMEN Routine 03/30/2021 12:05 AM EDT documented in this encounter Results * Film Library- Storage Only DX Abdomen (03/30/2021 12:05 AM EDT) Narrative DEENA - 04/05/2021 9:50 AM EDT This exam is auto-finalizing. It's purpose is for storage only. Rayna Pino APRN Fawn FILM LIBRARY ORD ERABLES [place], [place] documented in this encounter Visit Diagnoses Not on filedocumented in this encounter Care Teams Armored Machine Operator Relationship Specialty Start Date End Date Rayna Pino APRN [address] [place] [address] PCP - General Family Medicine 07/01/18 08/21/21 documented as of this encounter
--- OUTSIDE RECORDS SUMMARY | 2024-07-22 15:05 | XMS_ITS | Encounter Summary ---
[place] [address] Care Team Providers Care Offset Duplicating Machine Operator Name Role Phone Rayna Pino APRN Primary Care Provider [phone] Encounter Details Date Type Department Care Team (Late st Contact Info) Description 01/04/2021 Telephone [facility] [place] [address] Naresh Berg, RN Social History Tobacco Use Types Packs/Day [...] encounter Miscellaneous Notes * Telephone Encounter - Naresh Berg RN - 01/04/2021 3:57 PM EST Cervical spine xrays received from [facility] were reviewed by Dr. Tong, he reports that xrays look good and patient may come out of cervical collar. A call was placed to Dr. Sascha Isbell at [facility], he was informed of the above. Dr. Isbell also with updates, he reports that patient developed right leg swelling and has a DVT from the femoralvein down leg, they will be starting Lovenox bridging to Coumadin, he wants Dr. Tong to be awareand questions if he has any concerns about the anticoagulation. Dr. Tong updated, he has no concerns with anticoagulation at this point following surgery. Dr. Isbell was informed. Per Dr. Isbell, patient will likely be discharged from [facility] in the upcoming week, he will movingto a intermediate facility in [place], where exactly has not been established. He will have their pet caretaker reach out to us with where he will be going and then we can plan follow up with Dr. Tong when appropriate. Above was reviewed with Dr. Tong, he would like to see the patient back in Clinic towards the end of December. A call was placed to patient's daughter, Luz, regarding an appointment. She as not available and a message was left requesting a return call. 01/15/2021 received update from [facility] Photo Lab Specialist (Ruby Baldwin), patient will be discharged today or tomorrow to rehab in [place], [place], contact info; [place]i at [facility] [place] at P: [phone]. F: [phone]. Will reach out to Noni to plan f/u with Dr. Tong towards end of December. 1Contacted [facility], spoke with Annamarie, patient is arriving there today. Annamarie was connected with schedulers to book follow up appointment with Dr. Tong with xray prior, patient is scheduled for 01/30/2021. documented in this encounter Plan of Treatment Not on file documented as of this encounter Visit Diagnoses Not on filedocumented in this encounter Care Teams Offset Duplicating Machine Operator Relationship Specialty Start Date End Date Rayna Pino, [place] [address] [place] [address] PCP - General Family Medicine 07/01/18 08/21/21 documented as of this encounter
--- OUTSIDE RECORDS SUMMARY | 2024-07-22 15:05 | XMS_ITS | Encounter Summary ---
Author Organization [facility] [place] [address] Care Team Providers Care Color Mixer Name Role Phone Rayna Pino APRN Primary Care Provider [phone] Reason for Visit * - Closed Specialty Diagnoses / Procedures Referred By Ness palacio Referred To Contact Procedures Film Library- Storage Only CT Abdomen & Pelvis Rayna Pino APRN [address] [place] [address] Referral ID Status Reason Start Date Expiration Date Visits Re quested Visits Authorized [id number] Closed 04/05/2021 04/05/2022 1 1 Encounter Details Date Type Department Care Team (Late st Contact Info) Description 03/30/2021 Ancillary Procedure Radiology Library [place] [address] Rayna Pino APRN [address] [place] [address] Social History Tobacco Use Types Packs/Day [...] Associated Diagnosis Comments FILM LIBRARY STORAGE ONLY CT ABDOMEN AND PELVIS Routine 03/30/2021 12:00 AM EDT documented in this encounter Results * Film Library- Storage Only CT Abdomen & Pelvis (03/30/2021 12:00 AM EDT) Narrative DEENA - 04/05/2021 9:49 AM EDT This exam is auto-finalizing. It's purpose is for storage only. Rayna Pino APRN Fawn FILM LIBRARY ORD ERABLES [place], [place] documented in this encounter Visit Diagnoses Not on filedocumented in this encounter Care Teams Color Mixer Relationship Specialty Start Date End Date Rayna Pino APRN [address] [place] [address] PCP - General Family Medicine 07/01/18 08/21/21 documented as of this encounter
--- OUTSIDE RECORDS SUMMARY | 2024-07-22 15:05 | XMS_ITS | Encounter Summary ---
[place] [address] Care Team Providers Care Fundraiser Name Role Phone Rayna Pino APRN Primary Care Provider [phone] Reason for Visit * Reason Onset Date Comments Other 11/26/2020 Encounter Details Date Type Department Care Team (Late st Contact Info) Description 11/26/2020 Telephone [facility] [place] [phone] Naresh Berg RN Other Social History Tobacco Use Types Packs/Day Years [...] Telephone Encounter - Naresh Berg RN - 11/27/2020 10:43 AM EST Received call from patient's daughter, Luz, reporting that her father is at [facility] and is expected to be there through December, he will not be able to make the 12/19/2020 f/u with xray prior scheduled with Dr. Tong. Dr. Sascha Isbell is his doctor at [facility]. Reviewed above with Dr. Tong, contacted Dr. Isbell at [phone], discussed obtaining cervical spine xray, AP, lateral, swimmers view to include down to T2 around 12/19/2020 there and forwarding images up for Dr. Tong to review and then can plan further f/u once patient is discharged from [facility]. Dr. Isbell will obtain xrays and reach out to nursing off once done to forward them for review. Patient daughter was contacted and a message was left informing her of the above. documented in this encounter Plan of Treatment Not on file documented as of this encounter Visit Diagnoses Not on filedocumented in this encounter Care Teams Fundraiser Relationship Specialty Start Date End Date Rayna Pino, ADDICTIONS RECOVERY SPECIALIST [address] [place] [address] PCP - General Family Medicine 07/01/18 08/21/21 documented as of this encounter
--- OUTSIDE RECORDS SUMMARY | 2024-07-22 15:05 | XMS_ITS | Encounter Summary ---
Author Organization [facility] [place] [address] Care Team Providers Care Academic Intern Name Role Phone Rayna Pino APRN Primary Care Provider Reason for Visit * - Closed Specialty Diagnoses / Procedures Referred By Ness palacio Referred To Contact Procedures Film Library- Storage Only Ultrasound Study Rayna Pino APRN [address] [place] [address] Referral ID Status Reason Start Date Expiration Date Visits Re quested Visits Authorized [id number] Closed 04/05/2021 04/05/2022 1 1 Encounter Details Date Type Department Care Team (Late st Contact Info) Description 04/03/2021 12:05 AM EDT Ancillary Procedure Radiology Library [place] [phone] Rayna Pino APRN [address] [place] [address] Social History Tobacco Use Types Packs/Day [...] Associated Diagnosis Comments FILM LIBRARY STORAGE ONLY ULTRASOUND STUDY Routine 04/03/2021 12:05 AM EDT documented in this encounter Results * Film Library- Storage Only Ultrasound Study (04/03/2021 12:05 AM EDT) Narrative DEENA - 04/05/2021 9:52 AM EDT This exam is auto-finalizing. It's purpose is for storage only. Rayna Pino APRN [place] FILM LIBRARY ORD ERABLES [place], [place] documented in this encounter Visit Diagnoses Not on filedocumented in this encounter Care Teams Academic Intern Relationship Specialty Start Date End Date Rayna Pino APRN [address] [place] [address] PCP - General Family Medicine 07/01/18 08/21/21 documented as of this encounter
--- OUTSIDE RECORDS SUMMARY | 2024-07-22 15:05 | XMS_ITS | Encounter Summary ---
Author Organization [facility] Address [facility] [place] [address] Care Team Providers Care Pipe Installer Name Role Phone Rayna Pino APRN Primary Care Provider Reason for Visit * - Closed Specialty Diagnoses / Procedures Referred By Contmadan t Referred To Contact Procedures Film Library- Storage Only DX Abdomen Rayna Pino APRN [address] [place] [address] Referral ID Status Reason Start Date Expiration Date Visits Re quested Visits Authorized [id number] Closed 04/05/2021 04/05/2022 1 1 Encounter Details Date Type Department Care Team (Late st Contact Info) Description 04/03/2021 Ancillary Procedure Radiology Library [facility] [place] [address] Rayna Pino APRN [address] [place] [address] Social History Tobacco Use Types Packs/Day [...] FILM LIBRARY STORAGE ONLY DX ABDOMEN Routine 04/03/2021 12:00 AM EDT documented in this encounter Results * Film Library- Storage Only DX Abdomen (04/03/2021 12:00 AM EDT) Narrative RANJIT SHAFFER - 04/05/2021 9:52 AM EDT This exam is auto-finalizing. It's purpose is for storage only. Rayna Pino APRN [facility] FILM LIBRARY ORD ERABLES Performing Organization Address City/State/[facility] Co de Phone Number [place], [place] documented in this encounter Visit Diagnoses Not on filedocumented in this encounter Care Teams Pipe Installer Relationship Specialty Start Date End Date Rayna Pino APRN [address] [place] [address] PCP - General Family Medicine 07/01/18 08/21/21 documented as of this encounter
--- OUTSIDE RECORDS SUMMARY | 2024-07-22 15:05 | XMS_ITS | Encounter Summary ---
Author Organization [facility] Address [facility] [place] [address] Care Team Providers Care Evp Of Products & Co Founder Name Role Phone Rayna Pino APRN Primary Care Provider [phone] Encounter Details Date Type Department Care Team (Late st Contact Info) Description 04/03/2021 Telephone [place] [phone] Iain Stewart MD [facility] [place] [address] Social History Tobacco Use Types Packs/Day Years [...] encounter Miscellaneous Notes * Telephone Encounter - Iain Stewart - 04/03/2021 1:59 PM EDT Transfer Center Call: I received a call from Dr Pedersen at [facility]. Briefly, this is a 55 year old male paraplegic who was admitted with neurogenic bowel and pressure ulcers, stool in the wounds. He underwent a diversion colostomy and continues to have no stool output. He has not had any stool passage for about a week. He has been tried on colase, Reglan, frequent turns, etc without much improvement. He had been on opioids for abdominal pain and was tried on 3-4 days of relistor without improvement. He initially had an NG tube in but was improving so this was removed. KUB with dilated loops of large and small bowel. Nausea and emesis. Currently on PPN. Electrolytes normal, no obstruction, KUB without free air. Last dose of dilaudid last night. A/P: likely ileus in the setting of neurogenic bowel post diversion colostomy. Recommend: --encourage movement, frequent turns in bed --correct any underlying electrolyte abnormalities (ie calcium, magnesium, potassium) --can consider trial of pyridostigmine Start with 10 mg BID (then can titrate up to 30 mg TID if noeffect) --Continue colase --Tap water enemas Q24 hours --Serial abdominal exams --Limit opioid and other bowel slowing medications This is not an official consult, as my recommendations are limited by my inability to interview andexamine the patient as well as personally review the medical record, imaging, and laboratory findings. Iain Stewart M.D. Fellow in Gastroenterology and Hepatology [facility] Pager #[phone] 04/03/2021 documented in this encounter Plan of Treatment Not on file documented as of this encounter Visit Diagnoses Not on filedocumented in this encounter Care Teams Evp [employer] Products [employer] Co Founder Relationship Specialty Start Date End Date Rayna Pino, [place] [address] [place] [address] PCP - General Family Medicine 07/01/18 08/21/21 documented as of this encounter
--- OUTSIDE RECORDS SUMMARY | 2024-07-22 15:05 | XMS_ITS | Encounter Summary ---
Author Organization [facility] Address [facility] [place] [address] Care Team Providers Care Insurance Clerk Name Role Phone Rayna Pino APRN Primary Care Provider [phone] Reason for Visit * Consultation (Routine) - Closed Specialty Diagnoses / Procedures Referred By Ness t Referred To Contact Orthopaedics Diagnoses Bone lesion NON-SPECIFIC LYTIC LESIONS OF ILIAC BONES Mikayla Loomis MD [facility] [place] [address] Thom Cuevas MD [facility] DR [place] [address] Referral ID Status Reason Start Date Expiration Date V isits Requested Visits Authorized [id number] Closed Consult, Test & Treat 11/15/2020 11/15/2021 1 1 Encounter Details Date Type Department Care Team (Late st Contact Info) Description 02/19/2021 11:10 AM EDT TH Visit (TeleHealth) [place] [address] Thom Cuevas MD [facility] [place] [address] Bone lesion Social History Tobacco Use Types Packs/Day Years Used Date Smoking Tobacco: Former Smokeless Tobacco: Never Alcohol Use Standard Drinks/Week Comments Yes 21 (1 standard drink = 0.6 oz pu re alcohol) Sex and Gender Information Value Date Recorded Sex Assigned at Not on file Gender Identity Not on file Sexual Orientation Not on file documented as of this encounter Progress Notes * Thom Cuevas MD - 02/19/2021 11:10 AM EDT Orthopaedic Oncology Attending Outpatient Note [facility] [place], [place] [address] FAX: [facility] Newsletter Chief Complaint: Follow-up for bony changes on pelvis History of Present Illness: I spoke with Mr. Velasquez briefly today on the phone. He is still in inpatient rehabilitation. He is unsure when he may be discharged. Imaging: No new imaging Decision-Making and Plan: I have been asked to consult for Mr. Velasquez based upon some bony changes that were noticed in his pelvis. I continue to recommend a CT scan when possible. At this point, he is still in inpatient rehabilitation, and a CT may not be possible in the near future. I am happy to review CT scan when it is available. I answered all his questions to the best my ability, he demonstrated good comprehension of the answers, he will call with questions, concerns, or if he experiences any new symptoms or findings. Patient verbally consents to this telephone visit and understands that this visit may be billed, similar to a clinic office visit. I provided care to the patient today via telephone call. The total time associated with this visit was 15 minutes. Please copy this note to: Rayna Pino APRN [facility] [place] [address] Mikayla Loomis MD [facility] [place] [address] documented in this encounter Plan of Treatment Scheduled Referrals Name Type Priority Associated Diagnoses Order Schedule Referral to Orthopaedics Outpatient Referral Routine Bone lesion Ordered: 11/15/2020 documented as of this encounter Visit Diagnoses Diagnosis Bone lesion Disorder of bone and cartilage, unspecified documented in this encounter Care Teams Insurance Clerk Relationship Specialty Start Date End Date Rayna Pino, LAUNDRY WASHER [address] [facility] [place] [address] PCP - General Family Medicine 07/01/18 08/21/21 documented as of this encounter
--- OUTSIDE RECORDS SUMMARY | 2024-07-22 15:05 | XMS_ITS | Encounter Summary ---
Author Organization [facility] Address [facility] [place] [address] Care Team Providers Care Technology Training Associate Name Role Phone Rayna Pino APRN Primary Care Provider [phone] Encounter Details Date Type Department Care Team (Latest Contact Info) Description 01/30/2021 9:26 AM EDT - 01/30/2021 11:59 PM EDT Hospital Encounter XRay at [address] [place] [address] Robbin Tong MD [facility] [place] [address] S/P C4-T2 PSIF for C6-7 bilateral facet dislocation 10/27/20 Dr. Tong Discharge Disposition: Home Social History Tobacco Use [...] 1 tablet by mouth 3 times daily. tiZANidine (Zanaflex) 4 mg Tablet Take 4 mg by mouth Daily. 01/14/2021 03/01/2021 lactulose (Chronulac) 10 gram/15 mL Solution Take [...] Name Priority Date/Time Associated Diagnosis Comments XR CERVICAL SPINE 2 OR 3 VIEWS Routine 01/30/2021 9:49 AM EDT S/P C4-T2 PSIF for C6-7 bilateral facet dislocation 10/27/20 Dr. Tong documented in this encounter Results * XR Cervical Spine 2 or 3 Views (01/30/2021 9:49 AM EDT) Anatomical Region Laterality Modality C-spine N/A Digital Radiogra phy Impressions 01/30/2021 10:06 AM EDT Unchanged appearance of posterior fusion C4-T2, appropriate alignment of the vertebral bodies. No evidence of hardware failure. Thank you for letting us participate in the care of this patient. ??If you are a health care provider and have any questions regarding this report, please contact the number below. ??For our patients who have questions regarding this report, please first contact your doctor prior to speaking to our radiologists. ? Narrative 01/30/2021 10:06 AM EDT EXAMINATION: XR CERVICAL SPINE 2 OR 3 VIEWS CLINICAL HISTORY: S/P C4-T2 PSIF AP, lateral, swimmers view please to include down to T2 TECHNIQUE: 3 views of the cervical spine COMPARISON: 11/09/2020 FINDINGS: As before, patient is status post operative reduction of C6-7 anterior dislocation, with C4-T2 posterior fusion hardware. Hardware is unchanged, no lucency surrounding the retention screws. There is appropriate alignment of the cervical spine, unchanged from prior. Disc space narrowing at L3-4, prominent anterior marginal osteophytes. Prevertebral soft tissues are normal in thickness and contour. Lung apices are clear. No acute abnormality. Procedure Note Jose Joaquin MD - 03/31/2021 EXAMINATION: XR CERVICAL SPINE 2 OR 3 VIEWS CLINICAL HISTORY: S/P C4-T2 PSIF AP, lateral, swimmers view please to include down to T2 TECHNIQUE: 3 views of the cervical spine COMPARISON: 11/09/2020 FINDINGS: As before, patient is status post operative reduction of C6-7 anterior dislocation, with C4-T2 posterior fusion hardware. Hardware is unchanged,no lucency surrounding the retention screws. There is appropriate alignmentof the cervical spine, unchanged from prior. Disc space narrowing at L3-4,prominent anterior marginal osteophytes. Prevertebral soft tissues are normal in thickness and contour. Lung apices are clear. No acute abnormality. IMPRESSION Unchanged appearance of posterior fusion C4-T2, appropriate alignment ofthe vertebral bodies. No evidence of hardware failure. Thank you for letting us participate in the care of this patient. If youare a health care provider and have any questions regarding this report,please contact the number below. For our patients who have questions regardingthis report, please first contact your doctor prior to speaking to ourradiologists. Robbin Tong MD IMG DX ORDERABLES documented in this encounter Visit Diagnoses Diagnosis S/P C4-T2 PSIF for C6-7 bilateral facet dislocation 10/27/20 Dr. Tong Arthrodesis status documented in this encounter Care Teams Technology Training Associate Relationship Specialty Start Date End Date Rayna Pino, ANIMAL HUSBANDRY PROFESSOR [address] [place] [address] PCP - General Family Medicine 07/01/18 08/21/21 documented as of this encounter
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
--- OUTSIDE RECORDS SUMMARY | 2024-07-22 15:05 | XMS_ITS | Encounter Summary ---
Author Organization [facility] Address [facility] [place] [address] Care Team Providers Care Supervisor Instrument Maintenance Name Role Phone Rayna Pino APRN Primary Care Provider Reason for Visit * - Closed Specialty Diagnoses / Procedures Referred By Contmadan t Referred To Contact Procedures Film Library- Storage Only DX Abdomen Rayna Pino APRN [address] [place] [address] Referral ID Status Reason Start Date Expiration Date Visits Re quested Visits Authorized [id number] Closed 04/05/2021 04/05/2022 1 1 Encounter Details Date Type Department Care Team (Late st Contact Info) Description 04/02/2021 Ancillary Procedure Radiology Library at [place] [id number] Rayna Pino APRN [address] [place] [address] Social History Tobacco Use Types Packs/Day [...] FILM LIBRARY STORAGE ONLY DX ABDOMEN Routine 04/02/2021 12:00 AM EDT documented in this encounter Results * Film Library- Storage Only DX Abdomen (04/02/2021 12:00 AM EDT) Narrative RANJIT SHAFFER - 04/05/2021 9:51 AM EDT This exam is auto-finalizing. It's purpose is for storage only. Rayna Pino APRN [facility] FILM LIBRARY ORD ERABLES Performing Organization Address City/State/[facility] Co de Phone Number [place], [place] documented in this encounter Visit Diagnoses Not on filedocumented in this encounter Care Teams Supervisor Instrument Maintenance Relationship Specialty Start Date End Date Rayna Pino APRN [address] [place] [address] PCP - General Family Medicine 07/01/18 08/21/21 documented as of this encounter
--- OUTSIDE RECORDS SUMMARY | 2024-07-22 15:07 | XMS_ITS | Encounter Summary ---
[place] [address] Care Team Providers Care Metal Temperer Name Role Phone Rayna Pino APRN Primary Care Provider [phone] Reason for Visit * Auth/Cert Specialty Diagnoses / Procedures Referred By Contac t Referred To Contact Diagnoses Cervical spine fracture Hypothermia, initial encounter Alcoholic intoxication without complication Closed displaced fracture of sixth cervical vertebra, unspecified fracture morphology, initial encounter Trauma Alert Procedures EMERGENCY IPI Referral ID Status Reason Start Date Expiration Date Visits Re quested Visits Authorized [id number] 1 1 Encounter Details Date Type Department Care Team (Late st Contact Info) Description 11/05/2020 12:40 PM EST Anesthesia Event [place] [address] Eduardo Swan MD [facility] [place] [address] Piero Horton CRNA [facility] [place] [address] Anesthesia Record Procedure Summary Procedure Name Responsible Anesthesiologist Anesthesia Start Time Anesthesia Stop Time ENDOSCOPY W DIRECTED PLACEMENT PERCUTANEOUS GASTROSTOMY TUBE-PEG (WRVU 3.56) (Abdomen) Eduardo Swan MD 11/05/20 1240 11/05/20 1330 Events Date Time Event Comment 11/05/2020 1208 1236 An Start Data 1240 AN Verify 1240 Start 1250 An Induction 1250 An Intubation 1256 Anesthesia Ready 1321 Extubation/LMA Out 1328 an stop data 1330 Recovery or ICU Handoff Irma ent care was transferred to the destination unit staff after review of the patient's medical history, current anesthetic/surgical status and plan, according to the Provider Handoff Checklist. 1330 Stop Meds Name Total fentaNYL 100 mcg Propofol 200 mg Rocuronium 60 mg Ondansetron 4 mg Neostigmine 4 mg Glycopyrrolate 0.8 mg Lactated Ringers 0 mL * Agents Name O2 Air N2O Sevoflurane (et) * Blood No blood administrations on file. Lines, Drains, and Airways Type Details Placement Removal Urethral Catheter 10/26/20; Physician order, Need for intraoperative urine output monitoring; Immobility without alternative; indwelling catheter with core temperature probe; present on admission to this facility; 11/18/20; 1010 10/26/20 0000 by Iain Awan RN 11/18/20 1010 by All Nath LNA Incision 10/27/20; cervical spine; 06/30/22 (LDA cleanup utility RA#[id number]); 1715 (LDA cleanup utility RA#[id number]) 10/27/20 0000 by Cami Alvarado RN 06/30/22 1715 by Tony Junior (RETIRED) Peripheral IV Line - Single Lumen 10/29/20; 0500; cephalic vein (lateral side of arm), left; [id number] catheter system; 20 gauge; LP; tolerated well; 0; 08/07/21 (LDA Cleanup utility RA#[id number]); 1650 (LDA Cleanup utility RA#[id number]) 10/29/20 0500 by Karen Driver RN 08/07/21 1650 by Steve Campos (RETIRED) PICC Line - Double Lumen 11/03/20; 1219; basilic vein (medial side of arm), right; pressure injectable catheter ([id number]); 5 Fr; 37 cm; placement verified by x-ray; [id number]; distraction, intradermal injection; 37 cm recovered; 11/16/20; 1555 11/03/20 1219 by Angely Alonzo RN 11/16/20 1555 by Justus Ballard RN Enterostomy Tube 11/05/20; 0204; PEG (percutaneous endoscopic gastrostomy); LUQ (left upper quadrant); feeding; 20 Armenian ; 03/17/24; 1606 (not present upon assessment) 11/05/20 0204 by Anita Onofre RN 03/17/24 1606 by Meron Cardona RN ETT Mask Ventilation: Ea sy (1); ETT Type: Cuffed, Oral; ETT Size: 7.5 mm; Indirect: Video; Notes: Asleep, Pre-O2; Attempts: 1; Laryngoscopy Grade: 1; ETT Placement Verified By: Auscultation, Capnometry, Visual; Secured at Teeth: 22 cm; Inserted by: francheska horton; Removal Date: 11/05/20; Removal Time: 1321 11/05/20 1250 by Piero Horton CRNA 11/05/20 1321 by Piero Horton CRNA documented in this encounter Social History Tobacco Use Types Packs/Day Years Used Date Smoking Tobacco: Former Smokeless Tobacco: Never Alcohol Use Standard Drinks/Week Comments Yes (1 standard drink = 0.6 oz pu re alcohol) Sex and Gender Information Value Date Recorded Sex Assigned at Not on file Gender Identity Not on file Sexual Orientation Not on file documented as of this encounter OR Notes * Anesthesia Postprocedure Evaluation - Eduardo Swan MD - 11/05/2020 2:38 PM EST Department of Anesthesiology Post-procedure Note Patient: Bruce Velasquez Jr. Procedure Summary Date: 11/05/20 Room / Location: [address] MAIN OR Anesthesia Start: 1240 Anesthesia Stop: 1330 Procedure: ENDOSCOPY W DIRECTED PLACEMENT PERCUTANEOUS GASTROSTOMY TUBE-PEG (WRVU 3.66) (N/A Abdomen) Diagnosis: (dysphagia) Surgeon: Yoel Medellin MD Responsible Provider: Eduardo Swan MD Anesthesia Type: general ASA Status: 3 All Anesthesia Providers: Anesthesiologist: Eduardo Swan MD [employer]: Piero Horton CRNA Vitals Value Taken Time BP 119/63 11/05/20 1415 Temp 36.8 ??C (98.2 ??F) 11/05/20 1400 Pulse 54 11/05/20 1415 Resp 20 11/05/20 1415 SpO2 94 % 11/05/20 1420 Pain Level 3 11/05/20 1400 Vitals shown include unvalidated device data. Patient Location: PACU/[facility] Level of Consciousness: Awake and Alert Pain Management: Satisfactory Analgesia PONV: None Cardiovascular Status: At Baseline Respiratory Status: At Baseline Postoperative Fluid Status: Intravascular EUvolemia Possible Anesthetic Complications: NONE apparent at time of evaluation Final Primary Anesthesia Type: General (The anesthetic type performed was the same as planned.) Comments: * Anesthesia Preprocedure Evaluation - Eduardo Swan MD - 11/05/2020 11:45 AM EST Pre-Anesthesia Evaluation for: Bruce Velasquez . a 55 y.o. male. Procedure(s): ENDOSCOPY W DIRECTED PLACEMENT PERCUTANEOUS GASTROSTOMY TUBE-PEG (WRVU 3.66) Patient Active Problem List Diagnosis ??? S/P C4-T2 PSIF for C6-7 bilateral facet dislocation 10/27/20 Dr. Tong ??? Cervical spine fracture ??? Superficial skin infection History reviewed. No pertinent past medical history. Past Surgical History: Procedure Laterality Date ??? PRO ALLOGRAFT FOR SPINE SURGERY ONLY MORSELIZED N/A 10/27/2020 ALLOGRAFT FOR SPINE SURGERY ONLY; MORSELIZED (WRVU *) performed by Robbin Tong MD at [facility] MAIN OR ??? PRO APPLY/REMOVE CRANIAL FIX DEV N/A 10/27/2020 PLACEMENT-CRANIAL TONGS (INCLUDING REMOVAL) (WRVU 4) performed by Robbin Tong MD at [facility] JOSIANE ??? PRO AUTOGRAFT SPINE SURGERY LOCAL FROM SAME INCISION N/A 10/27/2020 AUTOGRAFT FOR SPINE SURGERY ONLY, SAME INCISION (WRVU *) performed by Robbin Tong MD at [facility] MAIN OR ??? PRO CERV FUSN, BELOW C2, POST TECH Midline 10/27/2020 @ARTHRODESIS, POSTERIOR CERVICAL SPINE (WRVU 17.4) performed by Robbin Tong MD at [facility] MAIN OR ??? PRO OPEN POST TREAT CERV VERT FX, 1 LVL N/A 10/27/2020 @OPEN TREATMENT &/OR REDUCTION VERTEBRAL FX., CERVICAL (WRVU 20.84) performed by Rosa Tong MD at [facility] MAIN OR ??? PRO POSTERIOR SEGMENTAL INSTRUMENTATION 3-6 VRT SEG N/A 10/27/2020 POST SPINAL INSTRUMENTATION, 3-6 VERTEBRA, NON SEGMENTAL (WRVU 12.56) performed by Robbin Tong MD at [facility] MAIN OR ??? PRO SPINE FUSN, POST TECH, EA ADDNL SGMT N/A 10/27/2020 ARTHRODESIS, POSTERIOR VERTEBRAL EA.ADD. SEGMENT (WRVU 6.43) performed by Robbin Tong MD at [facility] MAIN OR Social History Tobacco Use ??? Smoking status: Former Smoker ??? Smokeless tobacco: Never Used Substance Use Topics ??? Alcohol use: Yes Alcohol/week: 21.0 standard drinks Types: 21 Cans of beer per week Social History Substance and Sexual Activity Drug Use Yes ??? Frequency: 21.0 times per week ??? Types: Marijuana No Known Allergies Medications: MAR and/or home medications have been reviewed. Physical Exam: Patient Vitals for the past 24 hrs: Temp Heart Rate From SP02 Resp BP SpO2 O2 Flow Rate (L/min) O2 Device 11/04/20 1209 36.8 ??C (98.2 ??F) 63 bpm 22 146/77 98 % -- RA 11/04/20 1625 36.8 ??C (98.2 ??F) 63 bpm 18 105/67 96 % -- -- 11/04/20 2030 36.7 ??C (98.1 ??F) 63 bpm 15 145/77 96 % -- RA 11/04/20 2335 37.1 ??C (98.7 ??F) 67 bpm 18 143/79 95 % -- RA 11/05/20 0350 36.9 ??C (98.4 ??F) 65 bpm 18 155/61 95 % -- RA 11/05/20 0734 36.6 ??C (97.9 ??F) 66 bpm 19 141/78 95 % -- RA 11/05/20 1126 36.6 ??C (97.9 ??F) 69 bpm 18 (!) 157/94 97 % 3 L/min Nasal cup Body mass index is 28.35 kg/m??. Height: 188 cm (6' 2.02) Weight: 100.2 kg (220 lb 14.4 oz) Airway Assessment: Mallampati: (Unable to Assess) Cardiovascular Assessment: Rate: normal Pulmonary Assessment: unlabored breathing Dental Assessment: Misc Assessment: Anesthesia Plan: ASA 3 general, with a(n) intravenous induction Very [id number] 55-y male with a history of Alcohol abuse and cannabis dependence. Recently sustained C6-C7 anterolisthesis associated with spinal canal stenosis with regional ligamentous injury now s/p posterior cervical fusion C4-T2. Persistent neurologic deficit. For that procedure VLS grade 1 view on 10/27/20 Dyspagia requiring PEG tube Denies cardiac or pulmonary symptoms or issues Remains on spine precautions - discussed with his spine surgeon (Alycia). Neutral or extension should be well tolerated, but should avoid flexion during laryngoscopy Region - Other Informed Consent: Anesthetic plan and risks discussed with patient. Plan discussed with [employer]. PAT Clinic Note documented in this encounter Plan of Treatment Not on file documented as of this encounter Visit Diagnoses Not on filedocumented in this encounter Administered Medications Inactive Administered Medications - up to 3 most recent administrations Medication Order MAR Action Action Date Dose Rate Site fentaNYL (pf) (50 mcg/mL) multi-dose injection PRN, Starting on Thu11/05/20 at 1242, Until Thu11/05/20 at 1340, Anesthesia Intra-op, Routine Given 11/05/2020 1:09 PM EST 50 mcg Given 11/05/2020 12:42 PM EST 50 mcg glycopyrrolate (Robinul) (0.2 mg/mL) multi-dose injection PRN, Starting on Thu11/05/20 at 1315, Until Thu11/05/20 at 1340, Anesthesia Intra-op, Routine Given 11/05/2020 1:15 PM EST 0.8 mg lactated ringers infusion CONTINUOUS PRN, Starting on Thu11/05/20 at 1240, Until Thu11/05/20 at 1340, Anesthesia Intra-op New Bag 11/05/2020 12:40 PM EST neostigmine (Bloxiver) (1 mg/mL) injection PRN, Starting on Thu11/05/20 at 1315, Until Thu11/05/20 at 1340, Anesthesia Intra-op, Routine Given 11/05/2020 1:15 PM EST 4 mg ondansetron (pf) (Zofran) (2 mg/mL) injection PRN, Starting on Thu11/05/20 at 1319, Until Thu11/05/20 at 1340, Anesthesia Intra-op, Routine Given 11/05/2020 1:19 PM EST 4 mg propofoL (Diprivan) 10 mg/mL bolus injection (Anesthesia) PRN, Starting on Thu11/05/20 at 1250, Until Thu11/05/20 at 1340, Anesthesia Intra-op Given 11/05/2020 12:50 PM EST 200 mg rocuronium (Zemuron) (10 mg/mL) multi-dose injection PRN, Starting on Thu11/05/20 at 1250, Until Thu11/05/20 at 1340, Anesthesia Intra-op, Routine Given 11/05/2020 12:50 PM EST 60 mg documented in this encounter Care Teams Metal Temperer Relationship Specialty Start Date End Date Rayna Pino, AHLEIGH [address] [facility] [facility] [place] [address] PCP - General Family Medicine 07/01/18 08/21/21 documented as of this encounter
--- OUTSIDE RECORDS SUMMARY | 2024-07-22 15:07 | XMS_ITS | Encounter Summary ---
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 Alcoholics Anonymous (AA) [place]: , www.nhaa.net Narcotics Anonymous (NA) [place]: , www.gsana.org Online AA and NA Meetings AA, NA, Refuge Recovery, SMART Recovery Www.Complix AA Video Meetings www.aa-intergroup.org/directory_audio-video.php AA Text Chat Meetings Www.aa.intergroup.org/directory.php NA Video Meetings www.virtual-na.org/meetings NA Text Chat Meetings Www.neveraloneclub.org SMART Recovery Meetings via Zoom 5:00-6:00pm, free and open to all To join Zoom meetin. Visit [email or web address] 2. Click on calendar on top of toolbar 3. Find the correct meeting date and time 4. Click the zoom link and enter password provided Your care was managed by the Trauma and Acute Care Surgery Team at [place]. If you have any questions or concerns, please feel free to contact us. Provider Contact Information: General Surgery Clinic: Nurses line for questions: [facility] (after business hours): CC: Rayna Hoover APRN [facility] Lety Ballard APRN Signed: Mikayla Loomis MD Department of Surgery 11/20/2020 Trauma pager [phone] documented in this encounter Discharge Instructions * Discharge Instructions* Anais Fry, [facility] - 10/30/2020 3:38 PM EST Substance Use Resources (if interested) [facility] in your area: [facility] Website: http://www.[facility].org 24-Hour Emergency: ([facility]) [address] [place], [place] Private practice drug and alcohol counselors who take your insurance: Tadeo Constantino [facility] [address] [place], [place] [id number] Nyasia Mcgee [facility], [facility] [address] [place] [address] Lauri Obregon [facility] [address] [place] [address] Feng Goode, [facility] [address] [place] [address] Peer Support Groups Alcoholics Anonymous (AA) [place]: , www.nhaa.net Narcotics Anonymous (NA) [place]: , www.gsana.org Online AA and NA Meetings AA, NA, Refuge Recovery, SMART Recovery Www.Complix AA Video Meetings www.aa-intergroup.org/directory_audio-video.php AA Text Chat Meetings Www.aa.intergroup.org/directory.php NA Video Meetings www.virtual-na.org/meetings NA Text Chat Meetings Www.neveraloneclub.org SMART Recovery Meetings via Zoom 5:00-6:00pm, free and open to all To join Zoom meetin. Visit [email or web address] 2. Click on calendar on top of toolbar 3. Find the correct meeting date and time 4. Click the zoom link and enter password provided * Patient Instructions* Mikayla Loomis MD - 10/27/2020 1:26 PM EST Discharge Instructions You were found to have the following injuries and will require follow care as outlined below: Injury Intervention Follow-up Spine: C6-C7 Anterolisthesis and bilateral locked facets dislocation with multiple ligamentous injuries - Orthospine: - s/p open reduction of C6-C7 b/l facet dislocation, C4- T2 posterior instrumented fusion on 10/27/2020 ?? - C- collar at all times Activity as tolerated with c-collar, no BTL >10lbs. ?? [facility] removed 11/16 over incision with steri strips applied Steri-strips over incision for 14 days, can be removed if they do not fall off after 2 weeks from placement ?? Ortho follow up scheduled 12/19/2020 ?? Trauma WEIGHT LOSS COUNSELOR ?? As a result of your CT scans, you were found to have the following incidental findings, please discuss with your primary care provider at you next visit: - Nonspecific small lytic foci within the iliac bones. A referral to [facility] Orthopaedics has been made - you will receive a call to schedule an appointment if appropriate CALL YOUR PHYSICIAN IF: 1. You have a fever greater than 101F 2. You have diarrhea or vomiting for >24 hours, or stop having bowel movements and passing flatus 3. You have worsening pain, not controlled with your pain medication. 4. You develop redness, swelling, or new drainage from your wounds Follow up: Future Appointments Date Time Provider Department Center 12/10/2020 2:30 PM Lety Ballard APRN [facility] SURG [facility] 12/19/2020 12:45 PM [facility] DX ROOM 1 MH Xray [facility] Rad 12/19/2020 1:40 PM Robbin Tong MD [facility] Pain Sp [facility] Non-steroidal anti-inflammatories (NSAIDS) such as aspirin, Aleve and ibuprofen (Advil, Motrin) aremedications that reduce pain and inflammation. To reduce your chance of side effects, it is recommended that you use Tylenol as needed for pain and then NSAIDs and use narcotics as the last resort. Alternative means of pain relief such as rest and relaxation, positioning, as well as decreasing stimulants such as coffee, tea, soft drinks, and nicotine may also help to alleviate pain. If you continue to experience significant pain 4-5 days after your discharge, it may be necessary to be re-evaluated by your physician. Activities: - Increase your activity slowly. If it hurts don't do it, but try again the following day. - You may tire easily, so frequent naps may be necessary.. - Talk with your doctor about when you can return to work or school. - You may take a shower Diet: Eat a well-balanced diet. Fresh fruits, vegetables and fiber-containing foods are recommended. Thiswill assist in wound healing. Wound Care: - You can shower per usual routine - Do not submerge wounds under water (avoid spas, pools and bathtubs) until fully healed. - Do not use creams, oils, or ointments on the wound. - See follow-up appointments for removal of sutures/sharla. Comfort: - Some soreness can be expected. - Take your pain medication as needed and prescribed. - Taper use of pain medication as pain lessens. Follow up appointments: 1. You will have follow-up appointments at [facility] as indicated in the ???Future Appointments and Orders?? section of your discharge summary. If X-rays or CT scans have been ordered for you prior to this appointment you will need to report to the Radiology department, desk 3T, 1 hour prior to your clinic appointment time. 2. If you do not have a scheduled follow-up appointment listed at the time of discharge, you will be notified of your scheduled appointment on the next business day. Please call [phone] if you do not hear from us by that time, as your timely follow-up is very important to us. Your care was managed by the Trauma and Acute Care Surgery Team at [place]. If you have any questions or concerns, please feel free to contact us. Provider Contact Information: General Surgery: [facility] (after business hours): Primary Care Physician: RAYNA HOOVER Orthopaedic Spine Surgery Discharge Instructions Activity: 1. Wear your cervical collar at all times 2. We recommend taking several walks every day and gradually increasing your distance and duration over the next 2-4 weeks. Diet: 1. Eat your normal diet, with adequate amounts of protein and fiber. 2. Narcotic medicationscan cause constipation, so increase your intake of fluids and fiber if you are taking them. 3. You should also take an znac-gls-hcbyvlf stool softener or laxative, such as Yudy-colace or Miralax, to facilitate a bowel movement. Drivin. You are not allowed to drive if you are still requiring narcotic pain medication to manage your discomfort. 2. Since you are being sent home in a Cervical Collar, do not drive until you have been cleared by your physician at your follow-up appointment. Call the Spine Center or your Primary Care Physician if you have questions or concerns. Medication: 1. You are being discharged on a narcotic pain medication. Common side effects of this medication include drowsiness, nausea, and constipation. You should only take the smallest amount of pain medication that adequately controls your pain. 2. You may take Tylenol (acetaminophen) around the clock as directed on the package to help reduce the amount of narcotic medication you need. Do not take more than 3,000mg of acetaminophen in a 24 hour period. 3. You have had a spinal fusion surgery. DO NOT take any nonsteroidal anti- inflammatory medication (NSAID) such as Aleve, Ibuprofen, Motrin, Naprosyn, or Advil. [place] J Collar Instructions: 1. You are being sent home with a hard cervical collar. It must be worn at all times, including showers and while sleeping. 2. If you are required to wear the collar at all times, you may shower as usual with the collar in place. After showering your collar will need to be removed to dry your skin, check your skin integrity, and change the pads. To remove collar: sit upright, keep your head and neck steady in a neutral position (looking straight ahead). Your head should be maintained in a neutral position until the collar is back in position. After showers you should take care to remove any residual soap from your neck and to replace the wet pads with a clean, dry pair. You will be sent home from the hospital withextra pads and instructions on how to change them. 3. Do not put powder or lotion underneath the pads. 4. You should inspect your skin daily for redness or irritation caused by the collar. If you noticeirritation or you see areas where the hard plastic from the collar is pressing against the skin, please call the Spine Center Nursing Line at the number below. 5. Wash the extra pads with mild soap, rinse well, and allow to air dry. Wound Care/Shower/Bath: 1. You have sharla that need to be removed 2-3 weeks after your surgery (between 11/10 and 11/17). This can be done by your local primary care provider, [facility] Nurse (if ordered), or by a nurse at the [facility] Spine Center. Please call the Spine Center to obtain help with, or to confirm these arrangements. The sharla are covered by a silver Mepilex dressing. 2. This dressing should stay in place until 7 days after your surgery. After 7 days, on 11/03, you may remove the dressing and leave the incision uncovered as long as there is no continued drainage. Ifthere is drainage, you should replace the dressing with a clean, dry gauze held in place with tape.If you replace the dressing, you will need to cover the dressing/incision with a waterproof dressing prior to showering. Any bandage over the incision should be dry at all times and should be replaced if wet. If the incision continues to drain after the initial surgical dressing is removed, please call the Spine Center at the number below. 3. For the first 7 days after surgery, shower with the same silver Mepilex dressing covering your incision to keep it dry. Do not allow the shower to spray directly on your dressing. After showering check dressing to make sure it remains dry and intact. After 7 days, once the dressing has been removed, you may allow water to run over the incision when you shower but do not scrub the surrounding skin. Gently pat dry with a clean, dry towel after showering. 4. Do not soak the incision underwater (i.e. lakes, pools, hot tubs, bath tubs, etc.) for at least 4 weeks until the incision has completely healed. PLEASE CALL US AT [phone] TO SPEAK WITH A SPINE CENTER NURSE IF YOU EXPERIENCE THE FOLLOWING: ?? Fevers greater than 101.5 degrees Fahrenheit ?? Chills or night sweats ?? Nausea or vomiting ?? Wound Redness or drainage after the initial surgical dressing is removed ?? New numbness or tingling in your hands or feet ?? Incontinence of bowel or bladder ?? Any questions or concerns Important Phone Numbers: Clinical issues, nurse questions, medication renewals: [phone] Tong: [phone] Evenings after 5pm and weekends you may contact the Orthopaedic resident health safety and environment manager: [phone], askthe pipeline dispatch operator to page the Orthopaedic resident Follow Up Appointments: 1. You will have follow-up appointments at [facility] as indicated in the ???Future Appointments and Orders?? section of your discharge summary. If X-rays have been ordered for you prior to this appointment you will need to report to the Radiology department, desk 3T, 1 hour prior to your spine center appointment. 2. If you do not have a scheduled follow-up appointment listed at the time of discharge, you will be notified of your scheduled appointment on the next business day. Please call [phone] if you do not hear from us by that time, as your timely follow-up is very important to us. Future Appointments Date Time Provider Department Center 12/19/2020 12:45 PM [facility] DX ROOM 1 Xray [facility] Rad 12/19/2020 1:40 PM Robbin Tong MD [facility] Pain Sp [facility] documented in this encounter Medications at Time of Discharge Medication Sig Dispensed Refills Start Date End Date doxycycline (VIBRA-TABS) 100 mg Tablet Take 1 tablet by mouth 2 times daily. 14 tablet 11/20/2020 03/21/2024 documented as of this encounter Progress Notes * Eliane Lynch RN - 11/20/2020 10:17 AM EST Patient discharge to rehab. IV removed, site benign. My assessment remains unchanged from my previous assessment. Patient denies chest pain and shortness of breath. RN Discussed pain management with patient, pain tolerable. Patient medicated prior to discharge. Patient has all belongings. Patient received After Visit Summary. These were reviewed. All questions answered. Patient was encouraged to call with questions or concerns. Discharge packet and prescriptions given to ambulance service. Patient discharged to rehab facility via ambulance. Report called to rehab facility. * Steve Beck RN - 11/20/2020 6:50 AM EST Patient Guidelines for Self-Care after PICC (Peripherally Inserted Central Catheter) Removal Your PICC was removed on 11-20 at 0700am. An antibiotic ointment was applied to the insertion site (where the PICC went into your skin). ____X__Bacitracin ointment was used. (a clear ointment). The nurse applied gauze and a transparent ( see-through) dressing over the insertion site. To help your PICC insertion site heal: *Avoid heavy lifting (for example, no more than a gallon of milk) or vigorous activities for 24 hours * Keep the dressing over the insertion site dry for 24 hours * You can remove the dressing after 24 hours. Call your doctor after your PICC has been removed if you experience any of the following: * Fever (temperature over 100.1F) * Chills * Drainage from the insertion site ( including bleeding). Remember the Betadine antibiotic ointment, if used, was to protect your skin when the PICC was removed, can look like blood! *Redness, warmth, pain, swelling, or a pink/red streak going up your arm *A knot at the insertion site or anywhere in the arm *If bleeding should occur, hold firm pressure for 3-5 minutes. Do not remove the dressing that the nurse put on when the PICC was removed.. If needed, apply another dressing over the first dressing. If bleeding does not stop, call or seek medical attention. * Trish Putnam RN - 11/19/2020 3:32 PM EST Office of Care Management/Thermostat Mechanic Patient Name: Bruce Velasquez Jr. : 1965 Patient has been offered an acute re[facility] Thursday, [facility]/20. [facility] arranged for a 9am transport. Ambulance will need: Medicare ambulance form completed and signed (MD or Machine Adjuster Leader Case Trim RN/BAR HOST) Copy of patient demographics [place] [facility] Hospital DNR/DNI order, if active No MD to MD report necessary Please call Nursing Report to [phone], ask for nutrition counselor. Info to accompany patient: Copies of Medication Administration Records and IV sheets for past 10 days. Plan: Thermostat Mechanic will be available to the patient and Machine Adjuster Leader Case Trim-RN and/or Social Workerfor further assistance. Patient will be discharged to: [facility] TRISH PUTNAM RN, Thermostat Mechanic Saritha Mata RN - 11/19/2020 3:18 PM EST RN-FILM READER, Office of Care Management Saritha Louie RN,BSN, ACM Pager # [phone] e-DH reviewed. Patient discussed daily in interdisciplinary rounds. [facility] has offered patient a bed for tomorrow. Patient has accepted bed and is excited about opportunity for rehab. Daughter Luz aware of plan for discharge tomorrow. I handed off the clothing he wants to send home and the belongings he had requested family drop offfor rehab including IPAD - patient requested the IPAD be placed on his bedside table. Discharge packet and radiology disc at bedside. Nursing and trauma service aware that facility requested 9 am discharge from [facility]. BAR HOST/Machine Adjuster Leader Case Trim remains available as needed for coordination of care and discharge planning. * Mikayla Loomis MD - 11/19/2020 2:56 PM EST TACS DISCHARGE FOLLOW-UP REQUEST IID/MECHANISM OF INJURY: Bruce Velasquez Jr. is a 55 y.o. male s/p found down with the following injuries: INJURIES BOX: Injury Intervention Follow-up Spine: C6-C7 Anterolisthesis and bilateral locked facets dislocation with multiple ligamentous injuries - Orthospine: - s/p open reduction of C6-C7 b/l facet dislocation, C4- T2 posterior instrumented fusion on 10/27/2020 ?? - C- collar at all times Activity as tolerated with c-collar, no BTL >10lbs. ?? [facility] removed 11/16 over incision with steri strips applied Steri-strips over incision for 14 days, can be removed if they do not fall off after 2 weeks from placement ?? Ortho follow up scheduled 12/19/2020 Trauma WEIGHT LOSS COUNSELOR ? OR CASE INFORMATION: 11/05/2020 Procedure(s): ENDOSCOPY W DIRECTED PLACEMENT PERCUTANEOUS GASTROSTOMY TUBE-PEG (WRVU 3.66) FOLLOW-UP NEEDED: Specify Trauma WEIGHT LOSS COUNSELOR or Attending and time frame (please indicate reason if attending provider): Trauma WEIGHT LOSS COUNSELOR, coordinate with other appts Imaging and Referral orders entered: Yes Radiology Safety questions done for MRI/CT? N/A Patient over age 65? Make sure to drop Cyndy dot if answer yes ON DISCHARGE SUMMARY/AVS. No New or current ostomy? Ostomy nurse shared visit No Mobility concerns: Chairfast, SCI Wound vac (requires 60min clinic visit) N/A On vent? If Yes - Needs to have someone from facility and supplies. No On Dialysis: No INCIDENTAL FINDINGS Incidental Findings (yes/no): Yes OPIOID CONSENT/NARCOTIC AGREEMENTS Current Month Narcotic Consent? No No Isolation D/c to: rehab If Rehab - Rehab Name: [facility] PCP Name: HALEIGH Jimenes MD 11/19/2020 * Dorian Canseco MSW - 11/19/2020 2:18 PM EST BAR HOST has been in contact with pt's dtr/HCPOA Luz Mongey regarding her efforts to have financial POA completed during pts current hospitalization. Roller Printer reiterated that could not notarize this document due to liability purposes. This is a position that OCM is upholding with all pts at this time. Luz provided junior technical writer with pts Distributed Energy Systems Consultant information: Jessica Linares ([phone]) for junior technical writer to provide the above update. Per Jessica, she is unable to notarize the document herself as she is [place] Notary and unable to perform notarial acts in [place]. She will be providing a list of crm marketing analyst's in [place] to Luz to aide her in the finalizing of F-DPOA document. * Thom Lemon MD - 11/19/2020 1:14 PM EST Trauma Daily Progress Note ID/Mechanism of injury:55 y.o. Male admitted on 10/26/2020 following being found down for the management of Spinal injuries (Please see below box for a complete summary of injuries) 24 Hour Events: No acute events overnight Subjective: Tolerating cyclic tube feeds, no nausea/vomiting Did not sleep well, states trazodone not helpful. Napping during the day, trouble sleeping at night. Current Medications: ??? senna 34.4 mg Oral Daily ??? miconazole Topical (Top) BID ??? protein powder 2 Scoop Per G Tube TID ??? lactobacillus with pectin 1 capsule Oral Daily ??? acetaminophen 975 mg Per G Tube Q6H ALDEN ??? docusate sodium 100 mg Per G Tube BID ??? sodium chloride 15 mL Nebulization BID ??? bisacodyL 10 mg Rectal Daily ??? lidocaine 3 patch Transdermal Q24H And ??? lidocaine 3 patch Transdermal Q24H ??? heparin (porcine) 5,000 Units Subcutaneous Q8H ALDEN ??? sodium chloride 0.9 % (flush) 5 mL Intravenous BID Vital Signs: VITALS (24hr Range): Temp Temp: [36.4 ??C (97.5 ??F)-37.3 ??C (99.1 ??F)] , HR Heart Rate: --, BP BP: (119-135)/(71-79) , RR Resp: [16-24] , SpO2 SpO2: [89 %-98 %] Body mass index is 24.11 kg/m??. I/O: Intake/Output Summary (Last 24 hours) at 11/19/2020 1314 Last data filed at 11/19/2020 0953 Gross per 24 hour Intake 1179 ml Output 1125 ml Net 54 ml Physical Exam: GENERAL: Awake in no acute distress, sitting with HOB elevated in hospital bed. SKIN: Warm and dry. Scattered xerosis. HEENT: SAGE bilaterally. NECK: C-Collar in place. CHEST/PULMONARY: No evidence of increased work of breathing or respiratory distress. Anterior and lateral lung sounds are clear to auscultation. CARDIAC: S1 and S2 heard clearly. Regular rhythm, normal rate. No murmurs, rubs, or gallops. Extremities are warm and well-perfused. GASTROINTESTINAL: Soft, distended, non-tender. PEG in good position, 4cm at bumper, gauze padding removed. EXTREMITIES: Pt able to flex and extend elbows bilaterally. He has a strong shrug bilaterally. 1/5 blood collector strengthbilaterally. His left hand and shoulder tenderness are improved today. He has no sensation beneath the nipple line except small patch on dorsum of right foot. Unable to voluntarily move bilateral lower extremities. NEURO: Alert and oriented. Motor/sensory changes as above Labs: Recent Labs 11/17/20 0011 WBC 6.3 HGB 10.9* HCT 33.2* PLATELET 223 Recent Labs 11/17/20 0011 NA 137 K 4.0 CL 103 CO2 23 BUN 31* CREATININE 0.92 GLUCOSE 121 CALCIUM 9.3 MAGNESIUM 0.77 PHOS 4.0 Microbiology: Covid neg Blood cultures x2 11/01 with coag negative staph on 11/07, likely contaminant New Imaging: N/A Procedures: 10/27/2020: 1. Posterior cervical instrumentation C4-T2. 2. Posterior cervical athrodesis C4-T2 3. Open treatment fracture dislocation C6-7 Posterior approach. 4. Application of allograft and BMP-2. 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 He sustained C6-C7 anterolisthesis associated with spinal canal stenosis with regional ligamentous injury now s/p posterior cervical fusion C4-T2. PEG placed 11/05/2020. Tolerating tube feeds and regular diet. Cycling tube feeds (total goal volume)overnight without issue. Continuing with neurogenic bowel regimen, tolerating well. Episode of left hand pain and shoulder pain resolved and XRs obtained with no evidence of fracture, may have been due to neuropathy related to his injuries. Planning for discharge to [facility] tomorrow Plan: Traumatic Injuries: Injury Intervention Follow-up Spine: C6-C7 Anterolisthesis and bilateral locked facets dislocation with multiple ligamentous injuries - Orthospine: - s/p open reduction of C6-C7 b/l facet dislocation, C4- T2 posterior instrumented fusion on 10/27/2020 ?? - C- collar at all times Activity as tolerated with c-collar, no BTL >10lbs. ?? [facility] removed 11/16 over incision with steri strips applied Steri-strips over incision for 14 days, can be removed if they do not fall off after 2 weeks from placement ? Acute in hospital issues: Acute pain - Tylenol 975mg every 6 hours per G tube DC'ed oxycodone 11/16 due to lack of use Tizanidine 4mg every 8 hours PRN - Lidoderm patches x3 Bowel Regimen - Neurogenic bowel regimen Having regular bowel movements with neurogenic regimen Insomnia - Melatonin 6mg QHS Dysphagia, Protein Calorie Malnutrition - PEG, TF (resumed) - ELASTIC YARN TWISTER 11/14 ok for thin liquids, regular diet, poor PO intake thus far Continue tube feeds Neurogenic Bladder Beck catheter replaced 11/18/2020 Resolved in hospital issues: N/A Chronic health conditions: N/A Fluids/Electrolytes: tolerating PO Diet: regular/thin liquids, TF Activity status: Activity As Tolerated Spine status: Orthopedics Pulmonary toilet: Encourage frequent mobilization, IS use, titrate O2 >90 DVT PPX: SCDs, SQ Heparin q8hrs GI PPX: PPI Lines/Tubes/Drains: Kiran GARCÍA 10/26 for neurogenic bladder, PEG Consults (Please see consumer services consultant notes): PT/OT, Ortho, Psych, ELASTIC YARN TWISTER, ORTHO Dispo: IPR,CRC working on dispo plan Status: Floor Incidental Findings: - Nonspecific small lytic foci within the iliac bones. [x] Incidental Findings Form Completed by Mikayla Loomis MD 11/15/2020.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 History: transferred to [facility], now with TPN Social History: Living Environment: pt lives alone in a mobile home. [address] [facility], all needs on one floor. 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 Pt. Requires mechanical lift for OOB transfer - full body sling recommended - Broda tilt in space chair vs reclining wheelchair with gaymar cushion. Teds should be on. ?? Sling colors utilized - (head to toe) Gr, Gr, Bl, R, R ?? Bed chair position of bed if unable to lift ?? Please don multipodus boot alternating LE Q2 hours Subjective: You can take that recliner chair, it was not good. This is much better [Broda] and how much is a wheelchair? I want a nice one Objective: Patient seen for physical therapy and demonstrated the following: Pain: not much at rest. Increasing pain to post cervical spine/occiput with upright OOB to Broda chair Vital Signs: Pt with nasal cup on chin due to incr secretions, maintained spO2 92-97% BP 163/113 mmHg at rest ?? Patient received positioned partially sidelying R side. ?? Patient highly motivated, agreeable and eager to participate in PT ?? Bilateral ANKITA stockings on LEs (size large, regular length) ?? Max assistx1 for rolling R and L to place overhead sling for lift ?? Mechanical lift bed > Broda tilt in space chair, with dependent assist using full body sling ?? Sat in Broda chair x20 minutes for ADLs, positioning, self care (see OT note for details) ?? Mechanical lift chair > bed dependently via full body sling ?? Rolled bilaterally x2 with max assistance to doff full body sling ?? PROM provided to LEs in supine - Hip flex, hip IR/ER, hip ABD/ADD, knee flex/ext, DF/PF bilateral LEs x8 minutes ?? Pt left partial L sidelying with wedges in place and Christiano boot applied to LLE. Pillow under RLEto keep heel elevated/offweighted. Pillows under UEs under elbows for pressure and function. Bed alarm on. ?? RN updated on clinical status/response to PT Education: Pt educated on ANKITA stockings, upright tolerance, Broda Chair, need for offloading-repositioning, PROM, progression of mobility, seated balance, bed mobility, spine precautions, collar care, and DC planning with fair understanding/demonstration. Assessment: Bruce Velasquez Jr. was seen today for physical therapy treatment session for continuation of POC. Pt continues to present as highly motivated and eager to participate. Pt demonstrates appropriate coping with current medical/function status. Incr timing and planning needed today, due to r espiratory needs and incr secretions. Pt lifted overhead to Broda [id number] chair - tolerated well and with improved supports compared to standard recliner chair. PROM performed to LEs with good tolerance. Continue to recommend ongoing intensive multidisciplinary therapies in an acute rehab setting when medically appropriate. Pt will benefit from ongoing therapeutic interventions to achieve therapy goals. Discharge Recommendations: Based on the current findings, Anticipated Discharge Disposition: inpatient acute rehabilitation(SCI rehab) when medically ready for hospital discharge. Consult Recommendations: Social work consult Equipment Needs: TBD in rehab setting Transportation Recommendations: Ambulance Physical Therapy Goals: Goals ongoing as of 11/05/20 unless otherwise noted To be achieved by 11/21/2020: ?? 1. Pt. to demonstrate knowledge of safety limitations and precautions and will appropriately request assistance for functional activities and to mobilize. 2. Pt. to demonstrate understanding of appropriate HEP. 3. Pt. to perform bed mobility with mod A and 2 persons. 4. Pt. to perform slideboard transfers with mod A using a slideboard. 5. Pt will maintain midline static sitting with min support x 5 mins 6. Pt to propel wheelchair x 15 ft. using B UE with min A and verbal cues for navigation/technique. 7. Family or caregiver to demonstrate understanding of therapeutic interventions to support the care of the patient. 8. Pt will tolerate progression towards upright with stable vital signs. Plan: Therapy Frequency: 3-5 times/wk for as outlined in initial evaluation. Patient agrees with plan as stated. Time IN / OUT: 7913-1318 Total Evaluation Minutes, Physical Therapy: 51(x3 TEF) Liliane Barber PT Pager: [phone] Physical Therapy Inpatient Rehabilitation Department * Radha Bolden MD - 11/05/2020 10:49 AM EST Trauma Daily Progress Note ID/Mechanism of injury:55 y.o. Male admitted on 10/26/2020 following being found down for the management of Spinal injuries (Please see below box for a complete summary of injuries) 24 Hour Events: - Passing flatus, abdominal distention improved - C-diff negative - Remains on TPN, planning PEG for today - Afebrile, HDN Current Medications: ??? piperacillin-tazobactam 3.375 g Intravenous Medical Office Asst to OR ??? [DEC Hold] acetaminophen 650 mg Rectal Q6H ALDEN ??? [MAR Hold] bisacodyL 10 mg Rectal Daily ??? [MAR Hold] folic acid 1 mg Intravenous Daily ??? [MAR Hold] thiamine 100 mg Intravenous Daily ??? [MAR Hold] lidocaine 3 patch Transdermal Q24H And ??? [MAR Hold] lidocaine 3 patch Transdermal Q24H ??? [MAR Hold] heparin (porcine) 5,000 Units Subcutaneous Q8H ALDEN ??? sodium chloride 0.9 % (flush) 5 mL Intravenous BID Vital Signs: VITALS (24hr Range): Temp Temp: [36.6 ??C (97.9 ??F)-37.1 ??C (98.7 ??F)] , HR Heart Rate: --, BP BP: (105-157)/(61-94) , RR Resp: [15-19] , SpO2 SpO2: [95 %-97 %] Body mass index is 28.35 kg/m??. I/O: Intake/Output Summary (Last 24 hours) at 11/05/2020 1313 Last data filed at 11/05/2020 1309 Gross per 24 hour Intake 1837 ml Output 1751 ml Net 86 ml Physical Exam: GENERAL: Awake, appears in no acute distress SKIN: Warm and dry. HEENT: SAGE bilaterally. EOMs intact. Moist mucous membranes. NECK: C-Collar in place. CHEST/PULMONARY: No evidence of increased work of breathing or respiratory distress. Lungs clear toauscultation bilaterally. CARDIAC: S1 and S2 heard clearly. Regular rhythm, normal rate. GASTROINTESTINAL: slightly firm, distended, non-tender. Normoactive bowel sounds present. EXTREMITIES: pt is able to flex and extend BUE R>L, shrug 5/5, no grasp motor function, no sensation below c6 distribution NEURO: Alert and oriented to person, place, and time. No sensation below C6. Labs: Recent Labs 11/05/20 0412 11/04/20 0230 11/03/20 0315 WBC 9.6* 7.1 6.9 HGB 10.5* 10.2* 11.1* HCT 30.9* 30.5* 32.1* PLATELET 262 234 205 Recent Labs 11/05/20 0412 11/04/20 0230 11/03/20 0315 NA 134* 137 137 K 4.3 4.0 4.1 CL 102 104 103 CO2 23 25 22 BUN 18 20 22* CREATININE 0.75* 0.72* 0.76* GLUCOSE 102 137 85 CALCIUM 8.2* 8.1* 8.2* MAGNESIUM 0.76 0.78 0.82 PHOS 3.1 2.7 3.1 Microbiology: Covid neg Blood cultures x2 11/01 without growth New Imaging: None Procedures: None. Problem List: - Acute pain - Paraplegia, Complete, C8 and below - Alcohol dependence - HTN - dysphagia Assessment: 55Yo Male with a history of Alcohol abuse and cannabis dependence presented as a traumaalert after being found down due to unclear circumstances. He sustained C6-C7 anterolisthesis associated with spinal canal stenosis with regional ligamentous injury now s/p posterior cervical fusion C4-T2. PEG today for retirement nutrition. TF recs placed by nutrition on 11/03. Abdomen softer today with reported large amounts of flatus. Will continue neurogenic bowel regimen. Plan: Traumatic Injuries: Injury Intervention Follow-up Spine: C6-C7 Anterolisthesis and bilateral locked facets dislocation with multiple ligamentous injuries - Orthospine: - s/p open reduction of C6-C7 b/l facet dislocation, C4- T2 posterior instrumented fusion ?? - Maintain MAP>80 for 72 hours [done] - Monitor Drain output [removed] - Withhold chemical DVT ppx, 72 hours post op (initiated 10/30) - C- collar at all times - Spine precautions at all times while intubated. - Ancef ?? Ortho Clinic - Remove sharla 2-3 weeks post op. ? Acute in hospital issues: Acute pain - tylenol DC scehd - 3 lidoderm patches - IV dilaudid PRN, will transition to oxycodone when able to give meds through PEG Bowel Regimen - NBOs, holding due to diarrhea LBM: 11/04 Insomnia - Melatonin 6mg qHS Dysphagia - PPN, PEG 11/05 then Tube feed diet Resolved in hospital issues: Chronic health conditions: Fluids/Electrolytes: MIVF Diet: NPO diet (Hold Meds) TPN Adult Activity status: Activity As Tolerated Spine status: Orthopedics Pulmonary toilet: Encourage frequent mobilization, IS use, titrate O2 >90 DVT PPX: SCDs, SQ Heparin q8hrs GI PPX: PPI Lines/Tubes/Drains: Kiran GARCÍA 10/26 Consults (Please see consumer services consultant notes): PT/OT, Ortho, Psych, ELASTIC YARN TWISTER, ORTHO Dispo: TBD,CRC working on dispo plan Status: Floor Incidental Findings: - Nonspecific small lytic foci within the iliac bones. [] Incidental Findings Form Completed Robyn Baker, SECURITY SYSTEMS SALES REPRESENTATIVE 11/05/2020 Trauma pager [phone] Attending Addendum I have seen and examined the patient, I have reviewed the vitals, labs and pertinent imaging. I have discussed the documentation above and agree, with the following comments: Abdomen distended but reportedly better than yesterday. +flatus reported. He is upset about not eating, I discussed the reasons for this based upon his swallow study, and our feeling that he requiresenteral access at this time - hope to move forward with PEG today. On RA but feeling that he is having difficulty with getting his secretions mobilized - CXR with some patchy change but with no leukocytosis, fever or O2 requirement would defer any abx at this point. He does need ongoing aggressive pulmonary toilet to aid with secretion mobilization. Radha Bolden MD [phone] * Jeronimo Lawson, OT - 11/05/2020 10:10 AM EST Occupational Therapy Treatment Note Treatment Number OT: 5 Patient Dx: Bruce Velasquez Jr.??is a 55 y.o.?male??found down on 10/26 and taken to [facility] where he was hypotensive and bradycardic. Trauma workup revealed a C6/7 jumped facet injury. ??He was transferred to for further management??and is s/p open reduction C6-7 bilateral facet dislocation, C4-T2 PSIF??10/27.? Social History: Patient lives??alone in a 1st floor apartment with 2 steps to enter.?? DME:??none Baseline ADL/Mobility:??fully independent, works FT for a [employer].?? Precautions/Special Considerations:??TPN, NPO diet, high risk for skin breakdown, SBP >90, MAP >65,??no bending/lifting/twisting??>10lbs, c collar at all times, beck, high risk for autonomic dysreflexia (unique Shankar and abd binder for upright activity) Interval History: - Passing flatus, abdominal distention improved - C-diff negative - Remains on TPN, planning PEG for today - Afebrile, HDN S: How long do pt's with my injuries stay in the hospital? O: Patient seen for skilled OT treatment, and demonstrated the following: Self-care: ?? Mod A to brush teeth sitting up right in Broda chair, pt managing yankour independently; mod A to maintain grasp w/ built up handle on toothbrush and for control ?? Pt demonstrated understanding of tenodesis blood collector during use of yankour independently w/ built up handle seated in Broda chair and semi-supine in bed ?? Pt Katharine to wipe face, Katharine provided for control of UE wiping across mouth following brushing teeth Functional Mobility: ?? MaxA for rolling L/R for placement/removal of sling ?? Bed>chair: mechanical lift: depenendent into Broda chair ?? Pt tolerated sitting in Broda chair for ~ 20 minutes as pt participated in brushing teeth, wiping face ?? Chair>bed: mechanical lift: dependent ?? Rolled bilaterally x2 with max assistance to doff full body sling Cognition: ?? Behavior / Mood: alert and cooperative ?? Alert and oriented to: person, place, time and situation ?? Follows commands: 1 step and 100% of the time ?? Attention: WFL ?? Safety awareness: decreased insight into deficits ?? Endurance:fair Vitals: nasal cup on chin, spO2 92-97% HR: 62-70's BP 163/113 at rest ?? Strength/ROM: ?? Strength largely unchanged RUE, LUE continues with poor control ?? Stretch provided to B hands ?? UE Right Left Strength Strength Shoulder ? Flex 5/5 5/5 Abd 5/5 5/5 Elbow ? Flex 4/5 4-/5 Ext 2+/5 2/5 Wrist ? Flex 2/5 2/5 Ext 3/5 2+/5 Hand ? Finger Flex 0/5 0/5 Finger Ext 0/5 0/5 ?? Pain: 4/10 posterior neck pain Education: Pt/family/caregiver education ongoing regarding: Role of occupational therapy/rehabilitation, Transfers, ADL, Positioning, Safety, Precautions/Protocol, Functional Mobility, Balance, Recommendations and Discharge planning. Staff Communication: Patient status, treatment, and mobility recommendations discussed with nursing/other staff. ASSESSMENT: Pt seen by OT for progression of independence performing functional mobility and self-care. Pt introduced and tolerated mechanical lift from bed to Broda chair, pt reported feeling much more supported and stable in the Broda chair>standard hospital recliner. As pt sitting up in Brodachair he participated in grooming task w/ ModA-Katharine for blood collector and motor control of his RUE. Pt would continue to benefit from an acute inpatient rehab stay to continue his progress. Pt will benefit from ongoing therapeutic interventions to achieve pt's and therapy goals Anticipated Discharge Disposition: inpatient acute rehabilitation Equipment Recommendations: TBD Daily schedule / Staff Recommendations: ?? Utilize upright chair position using bed features or transfer to recliner chair as appropriate with mechanical lift ?? Provide assist for ADL ?? Enforce turning schedule Occupational Therapy Goals: To be achieved by??11/16/20 Pt will feed self 75% of meal mod I Pt will perform grooming routine in supported sitting position with??min A. Pt will roll side<>side in bed w/??mod?A to assist in toileting routine. Pt will tolerate sitting upright w/ feet on floor w/??mod A??to maintain midline position during BUE activity. Pt will??transfer??supine HOB 60 deg??to??sit EOB w/ mod??A. Pt will actively participate in AAROM/AROM BUE exercise to promote strengthening for ADL tasks. Pt will tolerate??UE??splinting w/out skin breakdown and w/ no further loss PROM. Pt will demo use at least one stress/anxiety management technique w/??min??cues/assist. Therapy Frequency: 2-4 times/wk Total Evaluation Minutes, Occupational Therapy: 50(sc x 3) Pager: [phone] Jeronimo Lawson OT Occupational Therapy Rehabilitation Department * Lawrence Juares RN - 11/04/2020 5:41 PM EST OUTCOME EVALUATION NOTE: OUTCOME SUMMARY: Patient progressing towards d/c goals appropriately at this time. Patient's pain adequately controlled with scheduled and PRN medications, see MAR for medications given. VSS. Dressings CDI. Patient stated he could feel touch on the dorsal and lateral aspect of his foot. Q2 turns maintained. Floor staff got patient to chair using lift, began to slip after sitting up and stated increased pain to back and neck, patient was reclined and moved back to bed relieving pain. C-Diff test resulted negative, team aware and precautions d/c'd. R PIV site below PICC line removed in AM. Will continue to monitor and help patient reach d/c goals. PLAN MOVING FORWARD: Pain control OOB Q2 turns maintained TPN ELASTIC YARN TWISTER follow-up 11/05/20 D/C planning INDIVIDUALIZED FALL PREVENTION: Patient is currently a high risk to Fall. Patient educated on bed/chair alarm, demonstrates proper use of call marshall and verbalizes understanding of fall preventions implemented. Patient-specific fall risk factors per assessment: [current deficits]: Paraplegia, Generalized weakness, Pain, Medications, Hospital Environment, Impaired Mobility, Recent Surgery Assistance [level of assistance required for transfers and ambulation]: Mechanical lift Supervision [direct monitoring required during toileting and ADLs]: Hands on with ADL's Surveillance [continuous indirect monitoring]: Masimo, Purposeful Rounding, Nurse Knowledge Exchange at Bedside, Bed Alarm Set * Robyn Baker APRN - 11/04/2020 12:42 PM EST Trauma Daily Progress Note ID/Mechanism of injury:55 y.o. Male admitted on 10/26/2020 following being found down for the management of Spinal injuries (Please see below box for a complete summary of injuries) 24 Hour Events: - PPN started - Amenable to PEG for ongoing nutrition while rehabbing swallow - Painless abdominal distention persists - Afebrile, HDN Current Medications: ??? acetaminophen 650 mg Rectal Q6H ALDEN ??? fat emulsion 500 mL Intravenous Change bag every evening ??? bisacodyL 10 mg Rectal Daily ??? folic acid 1 mg Intravenous Daily ??? thiamine 100 mg Intravenous Daily ??? lidocaine 3 patch Transdermal Q24H And ??? lidocaine 3 patch Transdermal Q24H ??? heparin (porcine) 5,000 Units Subcutaneous Q8H ALDEN ??? sodium chloride 0.9 % (flush) 5 mL Intravenous BID Vital Signs: VITALS (24hr Range): Temp Temp: [36.4 ??C (97.5 ??F)-37 ??C (98.6 ??F)] , HR Heart Rate: --, BP BP: (122-169)/(71-93) , RR Resp: [12-24] , SpO2 SpO2: [94 %-100 %] Body mass index is 28.35 kg/m??. I/O: Intake/Output Summary (Last 24 hours) at 11/04/2020 1242 Last data filed at 11/04/2020 1000 Gross per 24 hour Intake 3279 ml Output 1300 ml Net 1979 ml Physical Exam: GENERAL: Awake, appears in no acute distress SKIN: Warm and dry. HEENT: SAGE bilaterally. EOMs intact. Moist mucous membranes. NECK: C-Collar in place. CHEST/PULMONARY: No evidence of increased work of breathing or respiratory distress. Lungs clear toauscultation bilaterally. CARDIAC: S1 and S2 heard clearly. Regular rhythm, normal rate. GASTROINTESTINAL: slightly firm, distended, non-tender. Normoactive bowel sounds present. EXTREMITIES: pt is able to flex and extend BUE R>L, shrug 5/5, no grasp motor function, no sensation below c6 distribution NEURO: Alert and oriented to person, place, and time. No sensation below C6. Labs: Recent Labs 11/04/20 0230 11/03/20 0315 11/02/20 0352 WBC 7.1 6.9 7.0 HGB 10.2* 11.1* 10.3* HCT 30.5* 32.1* 30.4* PLATELET 234 205 188 Recent Labs 11/04/20 0230 11/03/20 0315 11/02/20 0352 NA 137 137 136 K 4.0 4.1 4.4 CL 104 103 103 CO2 25 22 21* BUN 20 22* 24* CREATININE 0.72* 0.76* 0.83 GLUCOSE 137 85 89 CALCIUM 8.1* 8.2* 8.2* MAGNESIUM 0.78 0.82 0.82 PHOS 2.7 3.1 4.0 Microbiology: Covid neg Blood cultures x2 11/01 without growth New Imaging: KUB 11/03/20 FINDINGS: Interval removal of a an enteric feeding tube. Gaseous distention of the stomach, multiple loops of small and large bowel. Contrast opacifies the cecum and the appendix. Air and enteric contrast project in the rectum. No large volume free intraperitoneal air detected. The lung bases are clear. ?? IMPRESSION Diffuse gaseous distention of the stomach, small and large bowel. Procedures: None. Problem List: - Acute pain - Paraplegia, Complete, C8 and below - Alcohol dependence - HTN - dysphagia Assessment: 55Yo Male with a history of Alcohol abuse and cannabis dependence presented as a traumaalert after being found down due to unclear circumstances. He sustained C6-C7 anterolisthesis associated with spinal canal stenosis with regional ligamentous injury now s/p posterior cervical fusion C4-T2. PPN started for nutrition, will consider PEG this week. KUB yesterday for distention with liquid BMs. KUB showed diffuse gaseous dilation; this could possible be related to a neurogenic bowel. Tylenol DC is ordered TID, this may provide enough digital stimulation that it would initiate evacuation of the air. Slightly more soft this morning, will continue to follow. Stool is unable to be collected for c-diff as it is too watery, los suspicion for c-diff given no leukocytosis and the described appearance of the stool is no consistent. Plan: Traumatic Injuries: Injury Intervention Follow-up Spine: C6-C7 Anterolisthesis and bilateral locked facets dislocation with multiple ligamentous injuries - Orthospine: - s/p open reduction of C6-C7 b/l facet dislocation, C4- T2 posterior instrumented fusion ?? - Maintain MAP>80 for 72 hours [done] - Monitor Drain output [removed] - Withhold chemical DVT ppx, 72 hours post op (initiated 10/30) - C- collar at all times - Spine precautions at all times while intubated. - Ancef ?? [facility] - Remove sharla 2-3 weeks post op. ? Acute in hospital issues: Acute pain - tylenol DC scehd - 3 lidoderm patches - IV dilaudid PRN Bowel Regimen - NBOs, holding due to diarrhea - C-diff precautions LBM: 1/3 Insomnia - Melatonin 6mg qHS Resolved in hospital issues: Chronic health conditions: Fluids/Electrolytes: MIVF Diet: NPO diet (Hold Meds) Activity status: Activity As Tolerated Spine status: Orthopedics c collar at all times, does not need to be full log roll, may sit up Pulmonary toilet: Encourage frequent mobilization, IS use, titrate O2 >90 DVT PPX: SCDs, SQ Heparin q8hrs GI PPX: PPI Lines/Tubes/Drains: PIV, urethral catheter 10/26 Consults (Please see consumer services consultant notes): PT/OT, Ortho, Psych, ELASTIC YARN TWISTER, ORTHO Dispo: TBD,CRC working on dispo plan Status: Floor Incidental Findings: - Nonspecific small lytic foci within the iliac bones. [] Incidental Findings Form Completed Robyn Bkaer, SECURITY SYSTEMS SALES REPRESENTATIVE 11/04/2020 Trauma pager [phone] * RingleSammyJazlyn Herrera, PT - 11/03/2020 4:36 PM EST Physical Therapy Note Treatment Number PT: 4 Patient profile: Bruce Velasquez Jr.??is a 55 y.o.?male??found down on 10/26 and taken to [facility] where he was hypotensive and bradycardic. Trauma workup revealed a C6/7 jumped facet injury. ??He was transferred to for further management??and is s/p open reduction C6-7 bilateral facet dislocation, C4-T2 PSIF??10/27.? Interval History: transferred to [facility] Social History: Living Environment: pt lives alone in a mobile home. [address] [facility], all needs on one floor. 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 Pt. Requires mechanical lift for OOB transfer - full body sling recommended - recommend lift to recliner wc for 60 min or less given pt can not weight on his own-gaymar cushion. Teds should be on. ?? Bed chair position of bed if unable to lift ?? Please encourage up to chair for meal times as able. ?? Please don multipodus boot alternating LE Q2 hours Weekend Plan: PT to follow up x1 over long weekend for progression of mobility as able/appropriate.Patient to continue mobilizing with nursing staff, per above recommendations, over weekend Subjective: Thank you for helping me ladies. I was nervous but it was not too bad. I think I feltit, the pressure, when you stretched my R ankle. Objective: Patient seen for physical therapy and demonstrated the following: Pain: very little pain just laying here. 1st time sitting up c/o moderate pain, relived by reclining back for a period time. 2nd time sat up longer before pain started back up in the cspine. Vital Signs: At Rest With Activity SpO2 (ra) 92-94% >93% BP (MAP) -mmHg 127/68 sitting nearly upright in the chair HR 70-80 bpm 90s bpm ?? Patient received positioned partially sidelying R side. Placed supine for PROM to BLEs, in supine, prolonged to gastrocs. Mild increased tone B hips. ?? Patient seen in collaboration with OT and ELASTIC YARN TWISTER for upright tolerance and feeding/oral care ?? Patient agreeable and motivated to participate in treatment ?? Bilateral ANKITA stockings on LEs (size large, regular length) ?? Max assist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 sodium chloride 0.9 % (flush) flush 5 mL ??? sodium chloride 0.9 % (flush) flush 5-20 mL ??? lidocaine (Xylocaine) 1% (10 mg/mL) injection 3 mg ??? naloxone (Narcan) (0.4 mg/mL) injection 0.2 mg ??? lactated ringers infusion ??? polyethylene glycoL (Miralax) packet 17 g ??? senna-docusate (Pericolace) 8.6-50 mg per tablet 2 tablet ??? bisacodyL (Dulcolax) suppository 10 mg ??? famotidine (Pepcid) tablet 20 mg OR famotidine (Pepcid) (10 mg/mL) injection 20 mg ??? tranexamic acid (Cyklokapron) 1,000 mg in sodium chloride 0.9% 110 mL infusion ??? PHENobarbitaL (Luminal) (130 mg/mL) injection 148.2 mg ??? dexmedetomidine (Precedex) (4 mcg/mL) in sodium chloride 0.9% 100 mL infusion ??? HYDROmorphone (Dilaudid) 0.5 mg/0.5 mL injection 0.2 mg OR HYDROmorphone (Dilaudid) 0.5 mg/0.5 mL injection 0.4 mg OR HYDROmorphone (Dilaudid) (1 mg/mL) injection syringe 0.6 mg ??? acetaminophen (Tylenol) tablet 1,000 mg ? ? PHENYLephrine (JOSE DE JESUS-SYNEPHRINE) 20 mg in sodium chloride 250 mL (standard ADULT & Pedi greater than 20kg) infusion ??? lactated Ringers 100 mL/hr at 10/29/20 0400 ??? tranexamic acid (Cyklokapron) (10 mg/mL) in sodium chloride 0.9% 100 mL continuous IntraOp infusion Stopped (10/27/20 1000) ??? dexmedetomidine 0.6 mcg/kg/hr (10/29/20 0400) ??? PHENYLephrine 10 mcg/min (10/28/20 2347) Intake/Output Summary (Last 24 hours) at 10/29/2020 0616 Last data filed at 10/29/2020 0400 Gross per 24 hour Intake 3258 ml Output 1125 ml Net 2133 ml Body mass index is 27.44 kg/m??. Drain output: 0cc Exam: General: awake, alert, oriented Neck: Hard cervical orthosis in place. No evidence of hematoma, dressing c/d/i CV: RRR felt peripherally Motor: Segment Muscle Action L R C5 Deltoid Shoulder Abd 5 5 C5 Biceps Elbow flexion 5 5 C6 ECRL, ECRB Wrist extension 3 3 C7 Triceps Elbow extension 2 3 C8 Hand Grasp 0 0 T1 Hand intrinsics Finger abd/adduction 0 0 L2 Iliopsoas Hip flexion 0 0 L3 Quadriceps Knee extension 0 0 L4,5 Hamstring Knee Flexion 0 0 L4 Tibialis anterior Dorsiflexion 0 0 L5 Extensor hallucis Great toe extension 0 0 S1 Gastrocnemius, FHL Plantar flexion 0 0 Sensory: Sensation (light touch) (0=absent, 1-impaired, 2=normal: Segment location Left Right C4 top of AC joint 2 2 C5 lat side antecub fossa 2 2 C6 dorsal thumb 1 1 C7 dorsal middle finger 0 0 C8 dorsal small finger 0 0 T1 med side antecub fossa 0 0 T2 apex axilla 0 0 T3 3rd IS (intercostal space) 0 0 T4 nipple line 0 0 T5 5th IS 0 0 T6 6th [...] MT 2 2 S1 lat heal 2 2 S2 Popliteal fossa 2 2 Last 3 wbc, hgb, hct plt Recent Labs 10/29/20 0050 10/28/20 0140 10/27/20 1325 WBC 7.5 7.6 9.0 HGB 11.2* 11.3* 11.7* HCT 32.9* 33.8* 35.4* PLATELET 146 136* 169 Last 3 Lytes Recent Labs 10/29/20 0050 10/28/20 0140 10/27/20 1725 10/27/20 1325 NA 136 138 -- 137 K 4.2 4.6 4.8 5.3* CL 105 108* -- 108* CO2 25 24 -- 21* BUN 15 14 -- 13 CREATININE 0.93 0.90 -- 1.08 Last Ca, Mg, Phos Recent Labs 10/29/20 0050 CALCIUM 7.8* PHOS 1.6* MAGNESIUM 0.75 Last 3 Coags Recent Labs 10/26/20 2310 PT 11.1 INR 1.0 PTT 22* IMAGING: Post operative XR of the cervical spine show C6-7 reduced and hardware at C4, C5, T1, and T2. No complications noted. ASSESSMENT / PLAN: Bruce Velasquez Jr. is a 55 y.o. male 2 Days Post-Op, s/p open reduction C6-7 bilateral facet dislocation, C4-T2 posterior instrumented fusion. Currently in SICU with MAPs above 80 without pressor support. Extubated yesterday. Today he is awake and alert, oriented. He is on phenobarbitol due to significant alcohol use. Plan for MAPs above 80 for 72hrs (until 10/30 at noon). Drains to stay until this afternoon or tomorrow morning. Okay to sit up, does not need to be full log roll now that he is not sedated. Activity: as tolerated no BTL>10lbs, c collar at all times DVT prophylaxis: hold 72 hours post operatively Closure: [place] (out 2-3 weeks (11/10-11/17) Dressing: mepilex 7 days Drain: 1 NIYAH 10 holes out when <30cc /8hr Antibiotics: ancef Dispo: pending ICU course Ten Leija MD 10/29/2020 Future Appointments Date Time Provider Department Center 10/30/2020 8:00 AM Mar Peña MD [facility] [place] [facility] [place] * Massiel Kiran RCP - 10/28/2020 1:28 PM EST Assessment / Events / Plan of the Day: Pt received on mechanical ventilation and in the following settings: PSV 5/5 25%. Pt is in C-Spine precautions. Pre-extubation assessment complete: Positive cuff leak test. 1410: Pt extubated with HOB at 30 degrees due to recent spinal surgery. Post-extubation assessment complete. No stridor noted, pt is able to phonate and has good cough. Bilateral BS are present and diminished/clear. He is awake and alert. Pt moved to 2LNC post extubationand continues to sat 96-98%. Will wean to RA as tolerated and continue to monitor. 1520: Pt now on RA and sat maintained 97-98%. Massiel Kiran RCP * Norberto Gonzalez MD - 10/28/2020 10:00 AM EST TRAUMA & ACUTE SURGICAL CARE SERVICE TERTIARY SURVEY ID/MECHANISM OF INJURY: Bruce Velasquez Jr. is a 55 y.o. Male was found down for an unknown period of time HISTORY OF PRESENT ILLNESS: Bruce Velasquez Jr. is a 55 y.o. male presents to [facility] [place] as [place] trauma alert [place] side of [place] for an unknown period of time. He was obtunded, laying in running water, hypothermic, arousable when EMS arrived. He was taken to [facility] where he was alcocer scanned and an unstable cervical spine injury was noted. Levophed was started for hypotension and was transferred to [facility] [place] for a higher level of care. PMHx: HTN Alcohol Abuse CDiff PSHx: Unable to obtain HOME MEDICATIONS: Medications Prior to Admission Medication Sig Dispense Refill Last Dose ??? doxycycline (VIBRA-TABS) 100 mg tablet Take 1 tablet by mouth 2 times daily. 14 tablet 0 CURRENT MEDICATIONS: ??? sodium chloride 0.9 % (flush) flush 5 mL ??? sodium chloride 0.9 % (flush) flush 5-20 mL ??? lidocaine (Xylocaine) 1% (10 mg/mL) injection 3 mg ??? naloxone (Narcan) (0.4 mg/mL) injection 0.2 mg ??? lactated ringers infusion ??? [MAR Hold] polyethylene glycoL (Miralax) packet 17 g ??? [MAR Hold] senna-docusate (Pericolace) 8.6-50 mg per tablet 2 tablet ??? [MAR Hold] bisacodyL (Dulcolax) suppository 10 mg ??? [MAR Hold] famotidine (Pepcid) tablet 20 mg OR [MAR Hold] famotidine (Pepcid) (10 mg/mL) injection 20 mg ??? [MAR Hold] acetaminophen (Tylenol) tablet 650 mg ??? tranexamic acid (Cyklokapron) 1,000 mg in sodium chloride 0.9% 110 mL infusion ? ? [MAR Hold] PHENYLephrine (JOSE DE JESUS-SYNEPHRINE) 20 mg in sodium chloride 250 mL (standard ADULT &Pedi greater than 20kg) infusion ??? propofoL (Diprivan) 10 mg/mL bolus injection (Anesthesia) ??? rocuronium (Zemuron) (10 mg/mL) multi-dose injection ??? lidocaine (pf) (Xylocaine) (20 mg/mL) 2% injection syringe ??? PHENYLephrine in NS (PF) (JOSE DE JESUS-SYNEPHRINE) 0.8 mg/10 mL (80 mcg/mL) multi- dose injection Syrg ??? ePHEDrine (pf) (5 mg/mL) multi-dose injection ??? propofoL (Diprivan) infusion ??? lactated ringers infusion ??? lactated ringers infusion ??? ondansetron (pf) (Zofran) (2 mg/mL) injection ??? dexamethasone (Decadron) injection ? ? PHENYLephrine (JOSE DE JESUS-SYNEPHRINE) 20 mg in sodium chloride 250 mL (standard ADULT & Pedi greater than 20kg) infusion ??? ceFAZolin (Ancef) 1 g in dextrose 5% 50 mL infusion ??? fentaNYL (pf) (50 mcg/mL) multi-dose injection ??? tranexamic acid (Cyklokapron) (100 mg/mL) IV bolus ??? tranexamic acid (Cyklokapron) (100 mg/mL) infusion sodium chloride 0.9 % (flush), lidocaine, naloxone, [MAR Hold] polyethylene glycoL, [MAR Hold] bisacodyL, [MAR Hold] acetaminophen ALLERGIES: Unable to obtain FAMILY HISTORY: Unable to obtain SOCIAL HISTORY: Alcohol: 2-3 beers daily Tobacco: denies tobacco use Drug: daily marijuana use Social History Socioeconomic History ??? Marital status: Single Spouse name: Not on file ??? Number of children: Not on file ??? Years of education: Not on file ??? Highest education level: Not on file Occupational History ??? Not on file Social Needs ??? Financial resource strain: Not on file ??? Food insecurity Worry: Not on file Inability: Not on file ??? Transportation needs Medical: Not on file Non-medical: Not on file Tobacco Use ??? Smoking status: Former Smoker ??? Smokeless tobacco: Never Used Substance and Sexual Activity ??? Alcohol use: Yes Alcohol/week: 21.0 standard drinks Types: 21 Cans of beer per week ??? Drug use: Yes Frequency: 21.0 times per week Types: Marijuana ??? Sexual activity: Not on file Lifestyle ??? Physical activity Days per week: Not on file Minutes per session: Not on file ??? Stress: Not on file Relationships ??? Social connections Talks on phone: Not on file Gets together: Not on file Attends advent service: Not on file Active member of club or organization: Not on file Attends meetings of clubs or organizations: Not on file Relationship status: Not on file ??? Intimate partner violence Fear of current or ex partner: Not on file Emotionally abused: Not on file Physically abused: Not on file Forced sexual activity: Not on file Other Topics Concern ??? Do You live alone? Yes ??? Tobacco in Home No Social History Narrative ??? Not on file REVIEW OF SYSTEMS: complete 10 system ROS performed, positive as above and otherwise negative. PHYSICAL EXAM: VITALS: Last value Range last 24 hrs Temperature Temp: 36.5 ??C (97.7 ??F) Temp: [34.5 ??C (94.1 ??F)-36.6 ??C (97.9 ??F)] Heart Rate Heart Rate: 62 Heart Rate: [60-89] Blood Pressure BP: 109/61 BP: (93-168)/(43-140) Respiratory Rate Resp: 18 Resp: [12-25] SpO2 SpO2: 94 % SpO2: [90 %-100 %] I/O last 3 completed shifts: In: 10 [I.V.:10] Out: 1075 [Urine:1075] GENERAL: Intubated, sedated, responding to command HEAD: Normocephalic, without obvious abnormality, atraumatic FACE: Pupils: equal, round, reactive to light, no periorbital ecchymoses; Tympanic Membranes: clear to visualization; Midface: no swelling, no contusions, no lacerations and no abrasions over entire face Oropharynx: intubated, non bloody NECK: Trachea midline, cervical orthosis in place LUNG:mechanical breath sounds, equal bilateral air entry CARDIAC: RRR per monitor ABDOMEN/GI: soft, no grimacing to palpation, non distended PELVIS: stable to AP and/or lateral compression RECTAL: Sphincter tone exam deferred EXTREMITIES: responds to command in the upper extemities, no joint swelling or deformity noted. SPINE: C-spine in collar, rest of exam deferred SKIN: no lacerations, abrasions or contusions on complete skin exam NEURO: Mental Status: sedated Cranial Nerves: Unable to fully examine Motor: 5/5 RUE, 2/5 LUE, no motor function in the BLE Sensory: no sensory function in BLE, normal sensation in BUE LABORATORY: Recent Labs 10/26/20 2310 WBC 13.4* HGB 12.4* HCT 36.7* PLATELET 188 PT 11.1 INR 1.0 PTT 22* Recent Labs 10/26/20 2310 NA 138 K 4.1 CL 104 CO2 20* BUN 15 CREATININE 1.43 GLUCOSE 133 CALCIUM 8.4* RADIOLOGY: XR Cervical spine - Patient is status post C4-T2 posterior bryon and bilateral transpedicular screws fixation with normal alignment of the cervical spine. Expected post operative appearance of the soft tissues. MRI C Spine: Severely limited study due to patient motion. Persistent grade 3 anterolisthesis of C6 on C7 secondary to bilateral locked facets resulting in severe canal narrowing and cord compression with associated hemorrhagic cord contusion/edema, disc rupture, and trans-ligamentous injuries at this level. Additional injuries involving the nuchal ligament, supraspinous ligament, and probable dorsal interosseous ligaments at the upper cervical levels as well as paraspinal muscle Edema. CTA Angio neck: 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 No acute intracranial hemorrhage or depressed calvarial fracture identified. Unremarkable CTA neck. CT Head and Spine: 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 No acute intracranial hemorrhage or depressed calvarial fracture identified. Unremarkable CTA neck. CT C/A/P: CHEST: Lungs/Pleura: Hypoventilatory dependent changes. Mediastinum/Idania: Unremarkable. Cardiovascular: Coronary artery calcifications are present. ?? ABDOMEN/PELVIS: Liver: Nonspecific small coarse calcification along the RIGHT lateral edge. Gallbladder: Unremarkable. Spleen: Unremarkable. Pancreas: Unremarkable. Adrenal Glands: Unremarkable. ?? RIGHT Kidney: Unremarkable. LEFT Kidney: Unremarkable. Urinary Bladder: Unremarkable. ?? GI: The stomach is distended and fluid-filled. There are multiple loops of nondilated small bowel containing fluid with a few scattered air fluid levels. Mesentery/Peritoneum: Unremarkable. Lymphatic System: Unremarkable. Vasculature: Unremarkable. ?? Nonspinal Osseous Structures: No acute abnormality identified. Nonspecific small lytic foci within the iliac bones. ?? Thoracic spine: No acute fracture or traumatic malalignment appreciated. ?? Lumbar spine: No acute fracture or traumatic malalignment appreciated. Degenerative changes/spondylosis, most prominent at the lower levels. Incidental Radiographic Findings: Nonspecific small lytic foci within the iliac bones. ASSESSMENT/SUMMARY OF INJURIES: 55 y.o. male with a history of alcohol and cannabis dependence presented as a trauma alert after being found down with unclear circumstances. He sustained C6- C7 anterolisthesis associated with spinalcanal stenosis with regional ligamentous injury New Injuries identified on Tertiary Survey: 1. No new injuries Catalogue of Injuries: Injury Intervention Follow-up Spine: C6-C7 Anterolisthesis and bilateral locked facets dislocation with multiple ligamentous injuries - Orthospine: - s/p open reduction of C6-C7 b/l facet dislocation, C4- T2 posterior instrumented fusion - Maintain MAP>80 for 72 hours - Monitor Drain output - Withhold chemical DVT ppx, 72 hours post op - C- collar at all times - Spine precautions at all times while intubated. - Ancef - Remove sharla 2-3 weeks post op. - F/u TBD Plan: Remains hemodynamically stable, requiring up to10 jose de jesus to maintain MAP>80, able to respond to command this AM in the bilateral upper extremity RUE>LUE, and none in the lower extremities. Phenobarb protocol given alcohol abuse history. Wean to extubate when able. Neuro: -Continue Q1h neuro-checks - Alcohol withdrawal- phenobarb protocol - on precedex for sedation - Analgesia per ICU Spine/Activity: -C-spine: per Ortho-spine. C- collar at all times. -T/L spine: No injuries noted. -activity: log roll while intubated. CV: -HDS - Maintain MAP>80 - Pulm: -minimal vent settings, passed SBT, wean to extubate when appropriate. GI: -Diet: NPO - NGT in place -daily miralax, BID pericolace -Stress ulcer prophylaxis: PPI /FEN: -mIVFs: LR - Replete electrolytes PRN MSK: -ICU mobility protocol ID: -no active issues. -Ancef for prophylaxis. Heme: -Hgb 11.3, stable. -DVT prophylaxis: SCDs. Withhold chemical DVT ppx. -duplex: surveillance BLE Endo: -no active issues. - Goal BG<180 Lines: -2x PIV -A- line - Beck - NIYAH drain - ETT/GT Consults: -Orthopedics- Spine -PTOT Dispo: -ICU status Code Status: Attempt Cardiopulmonary Resuscitation - Inpatient Norberto Gonzalez MD Pager [phone] 10/27/2020 * Maritza Kauffman MD - 10/28/2020 8:03 AM EST Critical Care Attending Daily Progress Note This patient was seen and examined on daily ICU rounds. Presentation: 55 yo male found down on 10/26 and taken to [facility] where he was hypotensive and bradycardic and C6/7 jumped facets found. He was transferred to for further management. Injuries: C6/7 jumped facets PMH: C diff 2011 HTN ETOH Procedures: 10/27/20 Open reduction C6-7 bilateral facet dislocation, C4-T2 PSIF 24 Hour Events: No events Back on jose de jesus at 5 this am Assessment, Management, and Decision Making Pt seen and examined with the critical care team with my full assessment and plan by systems as follows: Neuro: q1h neuro checks, intermittent prn dilaudid, started on phenobarb protocol given ETOH history, precedex for sedation Spine: 10/27 C5-T2 PSIF, continue c collar, HOB to 30 deg [place] CV: MAP > 80, currently on 5 mcg Jose De Jesus, PULM: was doing well on RA prior to the OR, continue PSV and intuabtion for 24 hours given concern for swelling PSV 5/5/25% GI: NPO currently in anticipation of extubation later today, OGT to suction : lytes ok HEME: daily cbc ID: periop antibiotics with ancef ENDO: no issues T/L/D: PIV, A line, will place central line if remains on pressor after changing from propofol to fentanyl MSK: PT/OT when able Prophylaxis: DVT SCDs, holding chemoprophylaxis for 72 h, GI pepcid, VAP bundle DISPO: SICU FULL CODE Physical Exam Last value Range last 24hrs Temperature Temp: 36.5 ??C (97.7 ??F) Temp: [36.2 ??C (97.2 ??F)-37.6 ??C (99.7 ??F)] Heart Rate Heart Rate: (!) 48 Heart Rate: [48-76] Blood Pressure BP: 114/70 BP: -- Respiratory Rate Resp: 14 Resp: [10-19] SpO2 SpO2: 99 % SpO2: [97 %-100 %] BMI Body mass index is 26.26 kg/m??. 10/27 0701 - 10/28 0700 In: 6049.3 [I.V.:5969.3] Out: 3735 [Urine:2465] General: intubated and sedated, awakens and responds to commands Lungs: clear Heart: reg Abdomen: soft Extremities: RUE 5/5, LUE 2-3/5, insensate below the nipple line prior to the OR Neuro: RUE 5/5, LUE 2-3/5, insensate below the nipple line prior to the OR Recent Labs 10/28/20 0140 10/27/20 1325 10/26/20 2310 WBC 7.6 9.0 13.4* HGB 11.3* 11.7* 12.4* HCT 33.8* 35.4* 36.7* PLATELET 136* 169 188 PT -- -- 11.1 INR -- -- 1.0 PTT -- -- 22* Recent Labs 10/28/20 0140 10/27/20 1725 10/27/20 1325 10/26/20 2310 NA 138 -- 137 138 K 4.6 4.8 5.3* 4.1 CL 108* -- 108* 104 CO2 24 -- 21* 20* BUN 14 -- 13 15 CREATININE 0.90 -- 1.08 1.43 GLUCOSE 137 -- 117 133 CALCIUM 7.7* -- 7.6* 8.4* MAGNESIUM 0.88 0.91 0.61* -- PHOS 3.1 -- 3.6 -- Recent Labs 10/27/20 1129 10/27/20 1027 10/27/20 0928 10/27/20 0025 PHART 7.31* 7.32* 7.29* 7.33* PO2ART 153* 131* 171* 75* [id number] 41 38 40 39 BEART -6.2* -6.6* -7.5* -6.0* Is this patient critically ill? Is there a high potential of sudden, clinically significant, or life threatening deterioration? Yes Is there a need for direct personal assessment and management to treat/prevent multiple vital organfailure/deterioration? Yes Patient is critically ill with these diagnoses being managed by the Critical Care Team: Hypotension Arterial Intubated for airway protection secondary to cervical spine fracture dislocation and operative fixation Shock Other Neurogenic I personally performed 31 minutes of aggregate critical care time exclusive of procedures and teaching, between the hours of 0700 and 1700 on the date of this note. This includes time spent during direct patient evaluation and reassessment, interpreting diagnostic tests, directing life and/or organ supporting interventions and documentation on the unit. Nik Kauffman MD * Lawrence Lay MD - 10/28/2020 5:55 AM EST ORTHOPAEDIC SPINE SURGERY INPATIENT NOTE Patient Name: Bruce Velasquez Jr. Age: 55 y.o. Surgery/Issue: 1. Open reduction C6-7 bilateral facet dislocation 2. C4-T2 posterior instrumented fusion Attending: Robbin Tong MD Date of surgery: 10/27/2020 Pre-op Symptoms: Numbness C7 distal and no motor C7 distal Pre-op symptoms currently present: Unable to assess due to sedation, but has slight blood collector strength which is more than preop. SUBJECTIVE / INTERVAL HISTORY: Intubated and sedated. He does respond during my visit Following commands Drain 80cc over 9 hours FOCUSED REVIEW OF SYSTEMS: unable to assess. Active Hospital Problems Diagnosis ??? S/P C4-T2 PSIF for C6-7 bilateral facet dislocation 10/27/20 Dr. Tong ??? Cervical spine fracture Resolved Hospital Problems No resolved problems to display. Active Non-Hospital Problems Diagnosis ??? Superficial skin infection MEDICATIONS: ??? magnesium sulfate 2 g in sterile water 50 mL infusion ??? chlorhexidine (PERIDEX) 0.12 % oral solution 15 mL ??? sodium chloride 0.9 % (flush) flush 5 mL ??? sodium chloride 0.9 % (flush) flush 5-20 mL ??? lidocaine (Xylocaine) 1% (10 mg/mL) injection 3 mg ??? naloxone (Narcan) (0.4 mg/mL) injection 0.2 mg ??? lactated ringers infusion ??? polyethylene glycoL (Miralax) packet 17 g ??? senna-docusate (Pericolace) 8.6-50 mg per tablet 2 tablet ??? bisacodyL (Dulcolax) suppository 10 mg ??? famotidine (Pepcid) tablet 20 mg OR famotidine (Pepcid) (10 mg/mL) injection 20 mg ??? tranexamic acid (Cyklokapron) 1,000 mg in sodium chloride 0.9% 110 mL infusion ??? PHENobarbitaL (Luminal) tablet 40.5 mg FOLLOWED BY [START ON 10/29/2020] PHENobarbitaL (Luminal) tablet 16.2 mg FOLLOWED BY [START ON 10/30/2020] PHENobarbitaL (Luminal) tablet 8.1 mg ??? PHENobarbitaL (Luminal) (130 mg/mL) injection 148.2 mg ??? dexmedetomidine (Precedex) (4 mcg/mL) in sodium chloride 0.9% 100 mL infusion ??? HYDROmorphone (Dilaudid) 0.5 mg/0.5 mL injection 0.2 mg OR HYDROmorphone (Dilaudid) 0.5 mg/0.5 mL injection 0.4 mg OR HYDROmorphone (Dilaudid) (1 mg/mL) injection syringe 0.6 mg ??? propofoL (Diprivan) infusion ??? acetaminophen (Tylenol) tablet 1,000 mg ? ? PHENYLephrine (JOSE DE JESUS-SYNEPHRINE) 20 mg in sodium chloride 250 mL (standard ADULT & Pedi greater than 20kg) infusion ??? lactated Ringers 100 mL/hr at 10/28/20 0400 ??? tranexamic acid (Cyklokapron) (10 mg/mL) in sodium chloride 0.9% 100 mL continuous IntraOp infusion Stopped (10/27/20 1000) ??? dexmedetomidine 0.6 mcg/kg/hr (10/28/20 0547) ??? propofoL Stopped (10/27/20 1713) ??? PHENYLephrine Stopped (10/27/20 1800) OBJECTIVE: @VITALSRANGE@ Intake/Output Summary (Last 24 hours) at 10/28/2020 0555 Last data filed at 10/28/2020 0400 Gross per 24 hour Intake 5995.3 ml Output 3800 ml Net 2195.3 ml Body mass index is 26.26 kg/m??. Drain output: 50mL Exam: General: Intubated, sedated Neck: Hard cervical orthosis in place. No evidence of hematoma, dressing c/d/i CV: RRR felt peripherally Resp: Pressure support ventilation Sensory and motor not assess due to patient condition. However patient responds and with work to squeeze hand, there is slight blood collector strength Last 3 wbc, hgb, hct plt Recent Labs 10/28/20 0140 10/27/20 1325 10/26/20 2310 WBC 7.6 9.0 13.4* HGB 11.3* 11.7* 12.4* HCT 33.8* 35.4* 36.7* PLATELET 136* 169 188 Last 3 Lytes Recent Labs 10/28/20 0140 10/27/20 1725 10/27/20 1325 10/26/20 2310 NA 138 -- 137 138 K 4.6 4.8 5.3* 4.1 CL 108* -- 108* 104 CO2 24 -- 21* 20* BUN 14 -- 13 15 CREATININE 0.90 -- 1.08 1.43 Last Ca, Mg, Phos Recent Labs 10/28/20 0140 CALCIUM 7.7* PHOS 3.1 MAGNESIUM 0.88 Last 3 Coags Recent Labs 10/26/20 2310 PT 11.1 INR 1.0 PTT 22* IMAGING: Post operative XR of the cervical spine show C6-7 reduced and hardware at C4, C5, T1, and T2. No complications noted. ASSESSMENT / PLAN: Bruce Velasquez Jr. is a 55 y.o. male 1 Day Post-Op, s/p open reduction C6-7 bilateral facet dislocation, C4-T2 posterior instrumented fusion. Currently intubated and sedated in SICU with MAPs above 80 without pressor support. Plan for MAPs above 80 for 72hrs (until 10/30 at noon). Drains to stay in Otherwise, care per ICU. Activity: as tolerated no BTL>10lbs, c collar at all times (after he is extubated). Full spine precautions while intubated DVT prophylaxis: hold 72 hours post operatively Closure: [place] (out 2-3 weeks (11/10-11/17) Dressing: mepilex 7 days Drain: 1 NIYAH 10 holes out when <30cc /8hr Antibiotics: ancef Dispo: pending ICU course Lawrence Lay MD 10/28/2020 Future Appointments Date Time Provider Department Center 10/30/2020 8:00 AM Mar Peña MD [facility] [place] [place] * Maritza Tiwari RRT - 10/27/2020 8:05 PM EST AMV Protocol: Yes SBT Protocol: Yes SBT: Passed Vent Settings: Ventilator Mode: PS/CPAP PEEP Set: 5 FiO2: 30 % PSV: 5 Ventilator Measurements: Resp: 13 Vt Spontaneous: 678 Ve: 8.8 SpO2: 98 % EtCO2: 36 mmHg Airway: 8.0 @ 24 cm at the Teeth. Skin Integrity: WDL ?? Breath Sounds: Diminished and clear Secretions: Small thin white Assessment / Events / Plan of the Day: Patient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 patient;nursing;physician;physical therapy;occupational therapy (Psych) * Plan of Care - Silvia Morgan RN - 11/06/2020 1:44 PM EST Problem: Patient Care Overview Goal: Plan of Care Review Outcome: Ongoing (Interventions Implemented as Appropriate) 10/29/20 1944 11/06/20 0740 Coping/Psychosocial Plan Of Care Reviewed With -- patient Plan of Care Review Progress progress toward functional goals is gradual -- OUTCOME EVALUATION NOTE: OUTCOME SUMMARY: Favio was in good spirits this morning, asking RN if he was doing all he could to go to rehab, participating in care. Late morning he was nauseated, this was shortly after increasing his TF to 20/hr,at the increase he has <15mL residual that was refed. paged and taurus administered x2. Pt feels slightly better. Pt was able to get lots of secretions up with turns (RN and TUBING MILL SETTER did extra with n chalino to help) - he stated he would work with RT this afternoon if they're available and he isn't too nauseated. He refused chair this am because he was sleepy and happy he slept last night. Refused PT this afternoon d/t nausea. aware of ongoing nausea, better after second zofran. Will continue to monitor. Pt's daughter emailed Maxime [employer]OST BRANNONOA paperwork, RN messaged him to see if he received it. PLAN MOVING FORWARD: Monitor nausea, restart TF when able. DC planning in progres for rehab. Continue to encourage cough. * Plan of Care - Meron Joiner RN - 11/06/2020 2:53 AM EST OUTCOME EVALUATION NOTE: ?? OUTCOME SUMMARY: ?? Patient progressing towards d/c goals appropriately at this time. Pt able to rest between care overnight. Patient A&O x 4 neuro checks unchanged, lungs coarse and dim on RA, heart rate regular. Last BM was on 11/04. Beck in place draining CYU. Dressings noted to be clean dry and intact. Patientspain adequately controlled, see MAR for medications given. Continues to have cough, self suctioningusing Yankauer. TPN infusing per orders. Abd binder remains on for comfort. PEG in place, plan for TF to start later today. [place] collar on and aligned, collar care completed this AM. Will continueto monitor and help patient reach d/c goals. ? PLAN MOVING FORWARD: ?? q2 turns Nutrition Start TF 11/06 Pain control Mobilize D/c planning ?? INDIVIDUALIZED FALL PREVENTION: Patient is currently a high risk to Fall. Patient educated on bed/chair alarm, demonstrates proper use of call marshall and verbalizes understanding of fall preventions implemented. Patient-specific fall risk factors per assessment: [current deficits]: Paraplegia, IV Sites, Pain, Medications, Hospital Environment. ?? Assistance [level of assistance required for transfers and ambulation]: 2 assist, lift ?? Supervision [direct monitoring required during toileting and ADLs]: Hands on assistance with ADL's ?? Surveillance [continuous indirect monitoring]: Bed alarm, Masimo, Purposeful Rounding, Bedside Report ?? Patient-specific fall prevention interventions for sensory deficits provided, if applicable: [X] N/A ? CPG GOAL OUTCOME EVALUATION: * Op Note - Norberto Gonzalez MD - 11/05/2020 1:32 PM EST Name: Bruce Velasquez Jr. : 1965 Date of surgery: 11/05/2020 Surgeon: Adrienne Medellin MD assistant professor of nursing: MD Norberto Manzanares MD Preoperative dx: Severe protein calorie malnutrition and need for intermediate manager enteral feeding access due to inability to take PO Postoperative dx: Same Procedure: Percutaneous endoscopic gastrostomy (PEG) placement Indication: This is an 55 y.o. year old male who is requiring persistent and prolonged enteral nutrition support. After discussion with the patient given his baseline dysphagia and inability to tolerate oral diet with high spinal cord injury, it was decided to proceed with PEG. Findings: - Procedure was performed in the Operating room - Flexible esophagogastroduodenoscope was utilized for direct internal procedural guidance and visualization - Safety steps of transillumination, one to one digital ballottement, air aspiration during introducer needle passage, and perpendicular introducer needle pathway were all followed - EnzySurge commercial 20 Fr PEG kit was utilized - Tube measurement at the skin level was 2.5 cm, 4cm at the bumper - EBL: nil - wound class: 2 (clean/contaminated) Anesthesia: Local + IV sedation Specimen removed: none Operative narrative: Patient was positioned and secured. Mechanical and pharmacologic DVT prophylaxis was utilized. An appropriate level of IV sedation was achieved and then maintained throughout the procedure. EGD scopewas introduced per os. The esophagus was successfully intubated under direct vision. The scope was advanced to the stomach without detailed examination of the pharynx, larynx and associated structures, and esophagus. The esophagus and stomach were grossly normal. Translumination was performed and clearly visualized through the anterior abdominal wall in the LUQ. One to one digital ballottement atthis site was clearly visualized endoscopically. Skin was prepped using Chloroprep prep stick. Local was instilled subcutaneously at the planned site of insertion. Introducer needle with plastic sheath was inserted percutaneously and visualized endoscopically. Needle was kept perpendicular to skin during passage. Syringe was used during passage to maintain suction to confirm that no air was aspirated until intra-gastric entry was seen endoscopically. Snare had been passed through the working channel on the endoscopic and was now used to grasp the introducer sheath. Needle was withdrawn and guideline advanced through the sheath into the stomach. Snare was then released and used to grasp the wire. Scope and snared wire were then carefully withdrawn per os. PEG tube was secured to wire. Snare was then used to secure the endoscope to the PEG bumper. Wire was then carefully drawn back, pulling the PEG and endoscope per os into the stomach and dilating out through the stomach and anterior abdominal wall until the PEG internal bumper was snug. Snare was released and proper placement and hemostasis confirmed endoscopically. Tube measurement at the skin level was noted as documented above.Outer bumper and tube accessories were then installed and tube cut to length. Patient tolerated theentire procedure without difficulty. No hypotension or hypoxia were encountered. Norberto Gonzalez MD 11/05/2020 1:34 PM Attestation: Case Date: 11/05/2020 Dr. Medellin was present throughout the entire procedure. Norberto Gonzalez MD 11/05/2020 Associated attestation - Adrienne Medellin MD - 11/05/2020 2:07 PM EST I was the attending physician supervising the resident in the above care and I was present with theresident for the entire procedure. Adrienne Medellin MD 11/05/2020 2:07 PM * Plan of Care - Meron Joiner RN - 11/05/2020 2:56 AM EST OUTCOME EVALUATION NOTE: OUTCOME SUMMARY: Patient progressing towards d/c goals appropriately at this time. Patient A&O x 4 neuro checks unchanged, lungs coarse and dim on RA, heart rate regular. Pt frustrated this evening, states he hasn't slept well in a long time. Last BM was on 11/04. Beck in place draining CYU. Dressings noted to be clean dry and intact. Patients pain adequately controlled, see MAR for medications given. Continues to have cough, self suctioning using Yankauer. Pt assisted with coughing up secretions by laying him on his side and burping him per his request. TPN infusing per orders. Abd binder remains on forcomfort. [place] collar on and aligned, collar care completed this AM. Will continue to monitor andhelp patient reach d/c goals. PLAN MOVING FORWARD: ELASTIC YARN TWISTER follow up 11/05 q2 turns Nutrition Pain control Mobilize D/c planning INDIVIDUALIZED FALL PREVENTION: Patient is currently a high risk to Fall. Patient educated on bed/chair alarm, demonstrates proper use of call marshall and verbalizes understanding of fall preventions implemented. Patient-specific fall risk factors per assessment: [current deficits]: Paraplegia, IV Sites, Pain, Medications, Hospital Environment. Assistance [level of assistance required for transfers and ambulation]: 2 assist, lift Supervision [direct monitoring required during toileting and ADLs]: Hands on assistance with ADL's Surveillance [continuous indirect monitoring]: Bed alarm, Masimo, Purposeful Rounding, Bedside Report Patient-specific fall prevention interventions for sensory deficits provided, if applicable: [X] N/A CPG GOAL OUTCOME EVALUATION: * Plan of Care - Eliane Machado RN - 11/04/2020 5:27 AM EST OUTCOME EVALUATION NOTE: OUTCOME SUMMARY: Patient A&Ox4. Patient's pain adequately controlled with scheduled and PRN medication (see MAR). Patient turned Q2. [place] aligned, collar care completed at 0500. Ag+ mepilex changed with collarcare. Pt had multiple BMs overnight, c- diff sample collected. Beck catheter patent draining adequate amounts CYU. Soap and H2O precautions maintained. Abdominal binder remains in place for comfort. Pt tolerating TPN. VSS. Will continue to monitor and help patient reach d/c goals. ?? PLAN MOVING FORWARD: ?? Pain control Mobilize Nutrition D/c planning ?? INDIVIDUALIZED FALL PREVENTION: Patient is currently a high risk to Fall. Patient educated on bed/chair alarm, demonstrates proper use of call marshall and verbalizes understanding of fall preventions implemented. Patient-specific fall risk factors per assessment: [current deficits]: Paraplegia, Pain, Medications, Hospital Environment. ?? Assistance [level of assistance required for transfers and ambulation]: Q2 turns ?? Supervision [direct monitoring required during toileting and ADLs]: Total care with ADL's ?? Surveillance [continuous indirect monitoring]: Bed alarm, Masimo, Purposeful Rounding, Nurse Knowledge Exchange ?? Patient-specific fall prevention interventions for sensory deficits provided, if applicable: n/a ?? CPG GOAL OUTCOME EVALUATION: * Plan of Care - Lori Beltrán RN - 11/03/2020 5:12 PM EST OUTCOME EVALUATION NOTE: OUTCOME SUMMARY: Patient A&O, elevated BPs throughout shift but asymptomatic. C/o feeling hot this AM only, diaphoretic for brief time but afebrile. IVF begun, PICC placed and TPN ordered to begin this evening. ST worked with patient but still does not have diet order at this time. Collar care completed at 13:00, posterior silver mepilex loose with dried drainage but intact. Tachypnea with some abdominal breathing noted, junky cough but has a hard time coughing deeply on own. Self- suctioning secretions withYankauer. LS dim throughout, encouraging IS. Abdominal xray showed possible stool build up, loose stools may be d/t blockage, new bowel regimen ordered. Unable to obtain c-diff sample d/t liquid stool. Slight rash to buttocks, zguard applied with turns and incontinence care. Beck patent. Worked with PT/OT and sat in chair for an hour and completed ADLs. C/o pain, given PRNs, see MAR. PLAN MOVING FORWARD: Pain control Advance mobility as able TPN Continue progress with ST Encourage pulm toileting Discharge planning INDIVIDUALIZED FALL PREVENTION INTERVENTIONS: Patient-specific fall risk factors per assessment: [current deficits]: Unable to move legs, arms weak, hospital environment, incontinence, lines and tubes, pain and narcotics Assistance [level of assistance required for transfers and ambulation]: Lift, Q2h turn Supervision [direct monitoring required during toileting and ADLs]: Total care Surveillance [continuous indirect monitoring]: Masimo, bed alarm, purposeful rounding Patient-specific fall prevention interventions for sensory deficits provided, if applicable: [X] Yes CPG GOAL OUTCOME EVALUATION: * Plan of Care - Angely Oneil RN - 11/03/2020 12:15 PM EST Problem: Health Knowledge, Opportunity to Enhance (Adult,NICU,,Obstetrics,Pediatric) Goal: Knowledgeable about Health Subject/Topic Patient will demonstrate the desired outcomes by discharge/transition of care. Outcome: Outcome (s) achieved Date Met: 11/03/20 11/03/20 1215 Health Knowledge, Opportunity to Enhance (Adult,NICU,[place],Obstetrics,Pediatric) Knowledgeable about Health Subject/Topic achieves outcome Peripherally Inserted Central Catheter (PICC) Teaching Sheet Peripherally inserted central catheters ([id number]) (PICC) are used when you need IV (intravenous) medicines and fluids. A catheter is a small flexible plastic tube. The catheter is put in througha vein under your skin. A vein is a tube inside your body that carries blood from the body to the heart. The catheter is usually put into a vein on the inside of your upper arm. Then it is threaded up this vein and ends in the blood vessel near your heart. The PICC catheter may be used for taking blood for laboratory tests. You may also get IV fluids andmedicines quickly and easily. Having the catheter may keep your arm from being stuck many times with a needle. The catheter will have 1-3 small tails (tubes) coming from your arm where the catheter was put in. Why do I need a PICC line or midline catheter? PICC lines are used for retirement treatments. PICC lines may be used for up to a year. They areoften put in to give you IV medicines at home. You may need a PICC catheter because caregivers cannot use smaller veins in your body. Smaller veins may be damaged, or they may have poor blood flow. ??? Catheters are also used in case of emergency when you would need medicines or fluids very quickly. ??? The following are medicines and treatments you may get when you have a PICC line. ? Antibiotics. These are medicines to prevent infection. ? Frequent blood sample collection. ? IV medicines that would make your smaller veins sore or damaged. ? Receiving IV fluids for a long period of time. ? Pain medicine. ? Total Parenteral Nutrition: This is also called TPN. TPN is a special liquid food that goes directly into your veins. ? Blood ? Chemotherapy (Medicine for cancer) What are the benefits of having a PICC line put in? Having a PICC line may keep your arm from being stuck many times with a needle to draw blood orstart an IV (intravenous catheter) . ??? Through a PICC catheter, you may have blood taken for tests. You may also get IV fluids and medicines quickly and easily. ??? Small veins can be damaged or irritated by certain drugs or nutritional solutions. A PICC line helps to decrease vein irritation from antibiotics, IV pain drugs, or IV cancer drugs. ??? A PICC line can be left in place when you go home. If you go home with a PICC line in place, home care can be set up via the nurse Machine Adjuster Leader Case Trim to help you. What are possible complications of having a PICC line put in? Some possible complications are: ??? bruising, swelling, or infection in the arm with the PICC line ??? mal-positioned catheter (catheter tip in wrong place) ??? occlusion (blocked catheter) ??? mechanical phlebitis (vein irritation) and thrombosis (clot) Your doctor is the person you should talk to if you have questions about what would happen if you do not choose to have a PICC line put in. Your doctor can talk to you about other choices you may have. What should I expect when it is put in? A written consent that gives your ok to have it put in needs to be signed after you understand thatyou are going to have a PICC put in, and all your questions about the procedure have been answered to your satisfaction. This is a safety feature that the hospital practices before doing procedures. An experienced nurse who has been through special training and education will be putting this catheter in. The procedure is done in a specially equipped room in Interventional Radiology on the third floor. The PICC nurse will first talk to you about any questions that you may have. The PICC nurse will explain to you what is going to be done before starting. Once you arrive in the procedure room in Interventional Radiology, the PICC nurse will then set up for the procedure. She will unwrap the sterile kit and open the needed supplies. A gown and mask andgloves will be worn while putting it in. An ultrasound machine will be used to help guide the catheter in the right place. This machine uses a handle with sound waves to find the vein. The area on your arm where the catheter will be put in is then numbed with a medicine put under your skin with a tiny needle. The nurse will then put in the catheter using fluoroscopy (a type of x-ray) as a guide. Once the catheter is in your vein, it will be threaded up your arm to the area beforeyour heart. While it is being threaded, you may be asked to turn your head. When the catheter is in, the nurse will place a small dressing on the site along with a little olsen which will help keep the catheter in place. After the procedure is done, a radiologist (doctor in x-ray department) will look at your x-ray to make sure that the end of the catheter is in proper position to give your fluids and/or medications. What should I expect in the care of my PICC? A dressing that is specially made to prevent infections will be put on. After this, the dressing will only be changed once a week unless it needs it sooner. If you go home with the catheter in, you may take a shower as long as you keep the site dry. You can do this by wearing a specially fitted PICC protector that will be provided to you before dischargefrom the hospital. The dressing at the site must be kept clean and dry. It is important that you watch for signs of infection at the site. Your healthcare provider should be notified if these occur: ??? Redness ??? Swelling ??? Pus ??? Pain at the site Other reasons to notify your healthcare provider are: ??? Catheter becomes partially or totally removed ??? Unable to infuse medication/fluid ??? Unable to draw back blood from the catheter. This may be an early sign that a clot is forming on the end of the catheter. If this occurs, a medicine called Cathflo may be used to dissolve this clot. Ask the PICC nurse or your doctor, any questions you may have so you feel secure in consenting to having a PICC line. References: Vascular Access Device Selection, Insertion, and Management, [employer] 08/06. A Review of the Efficacy, Safety, Use, and Administration of Cathflo, [employer] 2005 * Plan of Care - Eliane Machado RN - 11/03/2020 4:52 AM EST OUTCOME EVALUATION NOTE: OUTCOME SUMMARY: Patient A&Ox4. Patient's pain adequately controlled with scheduled and PRN medication (see MAR). Patient turned Q2. [place] aligned, collar care completed at 0330. Pt had x1 BM overnight. Beck catheter patent draining adequate amounts CYU. Soap and H2O precautions maintained for c-diff r/o. Abdominal binder remains in place for comfort. VSS. Will continue to monitor and help patient reach d/c goals. PLAN MOVING FORWARD: Pain control Mobilize Nutrition D/c planning INDIVIDUALIZED FALL PREVENTION: Patient is currently a high risk to Fall. Patient educated on bed/chair alarm, demonstrates proper use of call marshall and verbalizes understanding of fall preventions implemented. Patient-specific fall risk factors per assessment: [current deficits]: Paraplegia, Pain, Medications, Hospital Environment. Assistance [level of assistance required for transfers and ambulation]: Q2 turns Supervision [direct monitoring required during toileting and ADLs]: Total care with ADL's Surveillance [continuous indirect monitoring]: Bed alarm, Masimo, Purposeful Rounding, Nurse Knowledge Exchange Patient-specific fall prevention interventions for sensory deficits provided, if applicable: n/a CPG GOAL OUTCOME EVALUATION: * Plan of Care - Jonel Grissom RN - 11/02/2020 6:53 PM EST ?? OUTCOME EVALUATION NOTE: ?? OUTCOME SUMMARY: ?? Pt A&OX4. VSS on RA. No c/o chest pain or SOB. Beck in place. Pain adequately controlled (see MAR). Neuro checks unchanged. Pt self suctioning. Collar remains in place, care completed. Multiple BMs this shift, pt placed on soap and water precautions per protocol for r/o c-diff. Q2 turns maintained. Abd binder in place for comfort. covering pager [phone] paged requesting plan for nutrition and maintenance fluids, no interventions at this time. Pt able to talk w/ ben today. Bed alarm set. Will cont to monitor. ?? PLAN MOVING FORWARD: ?? Pain management Nutrition Mobility Dc planning ?? INDIVIDUALIZED FALL PREVENTION INTERVENTIONS: ?? Patient-specific fall risk factors per assessment: [current deficits]: Hospital environment, generalized weakness, impaired mobility, lines/drains, pain, pain meds ?? Assistance [level of assistance required for transfers and ambulation]: Not OOB ?? Supervision [direct monitoring required during toileting and ADLs]: Hands on ?? Surveillance [continuous indirect monitoring]: Masimo, NKE, hourly rounding, bed alarm, call marshall within reach ?? Patient-specific fall prevention interventions for sensory deficits provided, if applicable: [X] N/A ?? * Plan of Care - Giles Jean RN - 11/02/2020 2:04 AM EST Problem: Patient Care Overview Goal: Plan of Care Review Outcome: Ongoing (Interventions Implemented as Appropriate) 10/29/20194311/01/202132 Coping/Psychosocial Plan Of Care Reviewed With -- patient Plan of Care Review Progress progress toward functional goals is gradual -- Goal: Individualization & Mutuality Outcome: Ongoing (Interventions Implemented as Appropriate) 10/28/202232 Mutuality/Individual Preferences What Anxieties, Fears or Concerns Do You Have About Your Health or Care? how I'm going to be able to care for myself What Questions Do You Have About Your Health or Care? Am i going to recover use of my legs/ full use of my arms What Information Would Help Us Give You More Personalized Care? none Goal: Fall Prevention-Safe Patient Handling Outcome: Ongoing (Interventions Implemented as Appropriate) 11/01/20202211/01/20213211/02/20 0148 Daily Care Interventions Self-Care Promotion -- -- independence encouraged;BADL personal routines maintained Abdi Fall Risk History of Falling -- 25 -- Secondary Diagnosis -- 15 -- Ambulatory Aids -- 0 -- Intravenous Therapy/Heparin/Saline Lock -- 20 -- Gait/Transferring -- 20 -- Mental Status -- 0 -- Score -- 80 -- OTHER Abdi Fall Risk -- High -- Restraint Interventions Safety Promotion/Fall Prevention -- activity supervised;fall prevention program maintained;muscle strengthening facilitated;nonskid shoes/slippers when out of bed;safety round/check completed -- Positioning Body Position side-lying, right -- -- Activity Activity Type -- bedrest -- Activity Assistance Provided -- assistance, 2 people -- Assistive Device Utilized -- none -- Goal: Infection Control Outcome: Ongoing (Interventions Implemented as Appropriate) 11/01/202132 Safety Interventions Isolation Precautions standard precautions maintained Infection Prevention environmental surveillance performed;personal protective equipment utilized;single patient room provided;rest/sleep promoted Coping Strategies Supportive Measures active listening utilized;counseling provided;goal setting facilitated;decision-making supported;relaxation techniques promoted;self-care encouraged;self-reflection promoted;self-responsibility promoted;verbalization of feelings encouraged Goal: Discharge Needs Assessment Outcome: Ongoing (Interventions Implemented as Appropriate) 11/02/20147 Discharge Needs Assessment Concerns To Be Addressed denies needs/concerns at this time Goal: Interdisciplinary Rounds/Family Conf Outcome: Ongoing (Interventions Implemented as Appropriate) 11/02/20147 Interdisciplinary Rounds/Family Conf Participants patient;nursing;physician;physical therapy;occupational therapy (Psych) OUTCOME EVALUATION NOTE: OUTCOME SUMMARY: Patient progressing towards d/c goals appropriately at this time. Patient's pain adequately controlled with scheduled pain medications and PRN, see MAR for medications given. Collar care completed [id number], observable redness, no breakdown, tolerating well. Beck in place draining CYU; Last BM 11/01/2020. Dobhoff removed during day shift, patient remains NPO, most medications unable to be administered due to inaccurate route, team aware, see MAR. Patient resting between care. Will continue to monitor and help patient reach d/c goals. PLAN MOVING FORWARD: Pain control Mobilize Collar Care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 BLOOD GAS VENOUS POC Routine 10/27/2020 12:14 AM EST URINALYSIS MICROSCOPIC EXAM STAT 10/26/2020 11:59 PM EST RAPID DRUG SCREEN, URINE STAT 10/26/2020 11:59 PM EST RAPID DRUG SCREEN W/O CONFIRMATION, URINE STAT 10/26/2020 11:59 PM EST URINALYSIS WITH REFLEX CULTURE STAT 10/26/2020 11:[address] CAROTIDS W CONTRAST STAT 0 11:46 PM EST REQUEST FOR 2ND READ CT HEAD AND SPINE STAT 10/26/2020 11:34 PM EST REQUEST FOR 2ND READ CT CHEST ABDOMEN PELVIS STAT 10/26/2020 11:33 PM EST L-LACTATE2 WHOLE BLOOD Routine 0 11:31 PM EST ABORH RECHECK STATUS STAT 10/26/2020 11:10 PM EST HEMOGRAM STAT 10/26/2020 11:10 PM EST DIFFERENTIAL, AUTOMATED STAT 10/26/20 20 11:10 PM EST GOLD TUBE HOLD STAT 10/26/2020 11:10 PM EST ABO/RH TYPING STAT 10/26/2020 11:10 PM EST HC PARTIAL THROMBOPLASTIN TIME STAT 10/26/2020 11:10 PM EST HC PROTHROMBIN TIME STAT 10/26/2020 1 1:10 PM EST HC CBC,PLT & AUTO DIFF STAT 0 11:10 PM EST ANTIBODY SCREEN STAT 10/26/2020 11:10 PM EST HC ABO-MICROTITER STAT 10/26/2020 11: 10 PM EST HC ALCOHOL, BLOOD STAT 10/26/2020 11: 10 PM EST BASIC METABOLIC PANEL STAT 10/26/2020 11:10 PM EST RAPID COVID-19 PCR ([facility]) STAT 10/26/2020 10:58 PM EST FILM LIBRARY STORAGE ONLY CT HEAD AND SPINE STAT 10/26/2020 9:51 PM EST FILM LIBRARY STORAGE ONLY CT CHEST ABDOMEN PELVIS STAT 10/26/2020 9:49 PM EST documented in this encounter Results * Differential, Automated (11/20/2020 12:40 AM EST) Neutrophil % 62.7 % [facility] Neutrophil Absolute 4.15 1.70 - 6.10 x10(3)/[facility] Lymph % 27.8 % [facility] Lymphocytes Abs 1.8 0.9 - 3.2 x10(3)/[facility] Monocyte % 6.5 % [facility] [place]ocyte Abs 0.4 0.3 - 0.9 x10(3)/[facility] Eos % 2.0 % [facility] Eosinophils Abs 0.1 0.0 - 0.4 x10(3)/[facility] Basophil % 0.5 % [facility] [place] Baso Absolute 0.0 0.0 - 0.1 x10(3)/[facility] Immature Gran % 0.50 % [facility] Comment: Immature granulocytes(IG's)percentage and absolute count will include metamyelocytes, myelocytes, and promyelocytes. Blood smears from CBCs yielding IG's will be scanned manually for concordance. If this scan disagrees with the automated IG or if promyelocytes are noted, a manual differential will be performed. Immature Gran Absolute 0.03 0.00 - 0.04 x10(3)/[facility] Blood specimen (specimen) 11/20/2020 12:40 AM EST 11/20/2020 12:46 AM EST Narrative Resulting Agency Comment Spec In Lab Mikayla Loomis MD HEMATOLOGY ORDERABLE S [facility] [place] [address] * (ABNORMAL) Hemogram (11/20/2020 12:40 AM EST) White Blood Cell 6.6 4.0 - 9.5 x10(3)/[facility] Red Blood Cell 3.82(L) 4.58 - 5.54 x10(6)/[facility] Hemoglobin 11.6(L) 13.7 - 16.5 gm/dL [facility] Hematocrit 35.5(L) 40.5 - 48.5 % [facility] Mean Cell Volume 92.9 82.9 - 93.1 fL [facility] Mean Cell Hemoglobin 30.4 27.5 - 32.1 pg [facility] Mean Cell Hemoglobin Concentration 32.7 32.0 - 35.7 gm/dL [facility] Platelet 211 145 - 357 x10(3)/[facility] RDW Standard Deviation 43.8 36.0 - 45.0 [facility] RDW coefficient of variation 13.0 11.4 - 13.8 % [facility] Mean Platelet Volume 11.4 7.6 - 12.9 [facility] NRBC% auto 0.0 % [facility] NRBC Absolute 0.000 0.000 - 0.000 x10(3)/[facility] Blood specimen (specimen) 11/20/2020 12:40 AM EST 11/20/2020 12:46 AM EST Narrative Resulting Agency Comment Spec In Lab Mikayla Loomis MD HEMATOLOGY ORDERABLE S [facility] [place] [address] * (ABNORMAL) Basic Metabolic Panel (non-fasting) (11/20/2020 12:40 AM EST) Glucose 98 65 - 199 mg/dL [facility] Comment:Diabetes: >=200 mg/d L plus symptoms Blood Urea Nitrogen 28(H) 10 - 20 mg/dL [facility] Creatinine 0.92 0.80 - 1.50 mg/dL [facility] Sodium 136 135 - 145 mmol/L [facility] Potassium 4.2 3.5 - 5.0 mmol/L [facility] Comment: Please note: ??Patients with WBC >100,000 may have falsely elevated Potassium levels. ??For accurate Potassium quantification in these patients send serum separator tube (gold top) for subsequent determinations. ??Contact the Clinical Chemistry Laboratory if there are any questions. Chloride 102 98 - 107 mmol/L [facility] Carbon Dioxide 24 22 - 31 mmol/L [facility] Anion Gap 10 5 - 15 mmol/L [facility] Calcium 9.1 8.5 - 10.5 mg/dL [facility] Est Glomerular Filtration Rate 95 >=60 mL/min/1. 73 m?? [facility] Comment: This patient? s estimated glomerular filtration rate (eGFR) is between 95 mL/min/1.73 m2 (patients with less muscle mass per kg body weight) and 110 mL/min/1.73 m2 (patients with more muscle mass per kg body weight) as determined by the CKD-EPI equation. Assessment of eGFR is not appropriate when creatinine concentrations are rapidly changing. For clinical decisions where creatinine clearance will affect therapy, a 24-hour urine creatinine clearance may be advised. Assignment of CKD stage 1 ? 5 for patients with an eGFR near the transition point between stages may be based on clinical assessment of muscle mass and symptoms in addition to eGFR. Blood specimen (specimen) 11/20/2020 12:40 AM EST 11/20/2020 12:46 AM EST Narrative Resulting Agency Comment Spec In Lab Adrienne Medellin MD CHEMISTRY ORDERABLES [facility] [place] [address] * COVID-19 PCR (11/19/2020 11:06 AM EST) SARS-CoV-2 RNA (Rapid) Not Detected Not Detected [facility] Comment: This result should be interpreted in combination with the clinical observations, patient history and epidemiological information. For testing of asymptomatic individuals, assay performance characteristics and clinical utility have not been evaluated. Testing for SARS-CoV-2 (Severe acute respiratory syndrome coronavirus 2, formerly known as 2019 novel coronavirus or 2019-nCoV) to aid in the diagnosis of COVID-19 is performed using the Simplexa COVID-19 Direct Assay by Dash as authorized by the FDA issued Emergency Use Authorization (EUA). This assay is intended for In-vitro Diagnostic (IVD) use with nasopharyngeal swabs collected from individuals meeting the CDC criteria for testing. The assay is performed based on the instructions for use and additional guidance provided by the FDA. Testing is performed in the Microbiology Laboratory within the Department of Pathology and Laboratory Medicine at [facility], certified under the Clinical Laboratory Improvement Amendments of 1988 (CLIA), 42 U.S.C. section 263a, to perform high complexity tests. Assay performance has been verified according to clinical laboratory regulatory requirements. Test results are provided above. A result of Not Detected indicates that the viral RNA target is not present but does not preclude SARS-CoV-2 infection. False negative results may occur if a specimen is improperly collected, transported or handled; if amplification inhibitors are present; or if inadequate numbers of viral particles are present in the specimen. A result of Detected suggests a current or recent infection and the patient is presumed to be infected. Positive and negative predictive values for this test are highly dependent on disease prevalence. A result of Invalid indicates the inability to conclusively determine the presence or absence of SARS-CoV-2 RNA in the sample which can be due to a variety of factors. Recollection is recommended in the case of an invalid result. CDC COVID-19 criteria for testing on human specimens and clinical management guidance information are available at the CDC Coronavirus Disease 2019 (COVID-19) webpage under Information for Healthcare Professionals (https://www.cdc.gov/coronavirus/2019-ncov/hcp/index.html). Additional information about this and other EUA tests can be found in provider and patient fact sheets at the following FDA website: https://www.fda.gov/medical-devices/vxrnrhlhxrv-nscplby-2982-epzah-19-clmfwybob- use-a fdxhtrezdibex-gvzvbnc-rswzaap/svgck-rcnxwdaweir-oxow SARS-CoV-2 Source [employer] [facility] Nasopharyngeal swab (specimen) 11/19/2020 11:06 AM EST 11/19/2020 11:38 AM EST Comment:Symptoms->Surveillan ce Narrative Resulting Agency Comment Spec In Lab Thom Lemon MD MICROBIOLOGY - GENER AL ORDERABLES [facility] [place] [address] * Differential, Automated (11/17/2020 12:11 AM EST) Neutrophil % 67.1 % [facility] Neutrophil Absolute 4.24 1.70 - 6.10 x10(3)/[facility] Lymph % 20.5 % [facility] Lymphocytes Abs 1.3 0.9 - 3.2 x10(3)/[facility] Monocyte % 8.8 % [facility] Monocyte Abs 0.6 0.3 - 0.9 x10(3)/[facility] Eos % 2.7 % [facility] Eosinophils Abs 0.2 0.0 - 0.4 x10(3)/[facility] Basophil % 0.3 % [facility] Baso Absolute 0.0 0.0 - 0.1 x10(3)/[facility] Immature Gran % 0.60 % [facility] Comment: Immature granulocytes(IG's)percentage and absolute count will include metamyelocytes, myelocytes, and promyelocytes. Blood smears from CBCs yielding IG's will be scanned manually for concordance. If this scan disagrees with the automated IG or if promyelocytes are noted, a manual differential will be performed. Immature Gran Absolute 0.04 0.00 - 0.04 x10(3)/[facility] Blood specimen (specimen) 11/17/2020 12:11 AM EST 11/17/2020 12:38 AM EST Narrative Resulting Agency Comment Spec In Lab Norberto Gonzalez MD HEMATOLOGY ORDERABLE S [facility] [place] [address] * (ABNORMAL) Hemogram (11/17/2020 12:11 AM EST) [facility] White Blood Cell 6.3 4.0 - 9.5 x10(3)/mc L [facility] Red Blood Cell 3.59(L) 4.58 - 5.54 x10(6)/mc L [facility] Hemoglobin 10.9(L) 13.7 - 16.5 gm/dL [facility] Hematocrit 33.2(L) 40.5 - 48.5 % [facility] Mean Cell Volume 92.5 82.9 - 93.1 fL [facility] Mean Cell Hemoglobin 30.4 27.5 - 32.1 pg [facility] Mean Cell Hemoglobin Concentration 32.8 32.0 - 35.7 gm/dL [facility] Platelet 223 145 - 357 x10(3)/mc L [facility] RDW Standard Deviation 42.6 36.0 - 45.0 [facility] RDW coefficient of variation 12.8 11.4 - 13.8 % [facility] Mean Platelet Volume 11.1 7.6 - 12.9 fL [facility] NRBC% auto 0.0 % [facility] NRBC Absolute 0.000 0.000 - 0.000 x10(3)/mc L [facility] Blood specimen (specimen) 11/17/2020 12:11 AM EST 11/17/2020 12:38 AM EST Narrative Resulting Agency Comment Spec In Lab Norberto Gonzalez MD HEMATOLOGY ORDERABLE S [facility] [place] [address] * Phosphorus (11/17/2020 12:11 AM EST) Phosphorus 4.0 2.5 - 4.5 mg/dL [facility] Blood specimen (specimen) 11/17/2020 12:11 AM EST 11/17/2020 12:38 AM EST Narrative Resulting Agency Comment Spec In Lab Radha Bolden MD CHEMISTRY ORDERABLES Performing Organization Address [facility] Co de Phone Number [facility] [address] * Magnesium (11/17/2020 12:11 AM EST) Pathologist [facility] Magnesium 0.77 0.69 - 1.07 mmol/L [facility] Blood specimen (specimen) 11/17/2020 12:11 AM EST 11/17/2020 12:38 AM EST Narrative Resulting Agency Comment Spec In Lab Radha Bolden MD CHEMISTRY ORDERABLES Performing Organization Address [facility] Co de Phone Number [facility] [place] [address] * (ABNORMAL) Basic Metabolic Panel (non-fasting) (11/17/2020 12:11 AM EST) Pathologist [facility] Glucose 121 65 - 199 mg/dL [facility] Comment:Diabetes: >=200 mg/d L plus symptoms Blood Urea Nitrogen 31(H) 10 - 20 mg/dL [facility] Creatinine 0.92 0.80 - 1.50 mg/dL [facility] Sodium 137 135 - 145 mmol/L [facility] Potassium 4.0 3.5 - 5.0 mmol/L [facility] Comment: Please note: ??Patients with WBC >100,000 may have falsely elevated Potassium levels. ??For accurate Potassium quantification in these patients send serum separator tube (gold top) for subsequent determinations. ??Contact the Clinical Chemistry Laboratory if there are any questions. Chloride 103 98 - 107 mmol/L [facility] Carbon Dioxide 23 22 - 31 mmol/L [facility] Anion Gap 11 5 - 15 mmol/L [facility] Calcium 9.3 8.5 - 10.5 mg/dL [facility] Est Glomerular Filtration Rate 95 >=60 mL/min/1. 73 m?? [facility] Comment: This patient? s estimated glomerular filtration rate (eGFR) is between 95 mL/min/1.73 m2 (patients with less muscle mass per kg body weight) and 110 mL/min/1.73 m2 (patients with more muscle mass per kg body weight) as determined by the CKD-EPI equation. Assessment of eGFR is not appropriate when creatinine concentrations are rapidly changing. For clinical decisions where creatinine clearance will affect therapy, a 24-hour urine creatinine clearance may be advised. Assignment of CKD stage 1 ? 5 for patients with an eGFR near the transition point between stages may be based on clinical assessment of muscle mass and symptoms in addition to eGFR. Blood specimen (specimen) 11/17/2020 12:11 AM EST 11/17/2020 12:38 AM EST Narrative Resulting Agency Comment Spec In Lab Radha Bolden MD CHEMISTRY ORDERABLES [facility] [place] [address] * XR PICC Placement Over 5 Years with Imaging Guidance (IV Team) (11/16/2020 3:48 PM EST) Anatomical Region Laterality Modality N/A Radio Fluoroscop y Impressions 11/16/2020 4:20 PM EST right PICC, with the catheter tip projected at the region of SVC. Thank you for letting us participate in the care of this patient. For questions regarding this report, please contact the number below. ? Narrative 11/16/2020 4:20 PM EST EXAMINATION: XR PICC PLACEMENT OVER 5 YEARS WITH IMAGING GUIDANCE (IV TEAM) CLINICAL HISTORY: Confirmation of PICC line placement; Poor vascular access TECHNIQUE: C-arm placement of PICC. Limited view of the line tip only. COMPARISON: Chest from 11/02/2020 FINDINGS: Intraprocedural frontal radiograph of the mediastinum demonstrates a right PICC, with the catheter tip projected at the region of SVC. Procedure Note Natalie Ann MD - 11/16/2020 EXAMINATION: XR PICC PLACEMENT OVER 5 YEARS WITH IMAGING GUIDANCE (IVTEAM) CLINICAL HISTORY: Confirmation of PICC line placement; Poor vascularaccess TECHNIQUE: C-arm placement of PICC. Limited view of the line tip only. COMPARISON: Chest from 11/02/2020 FINDINGS: Intraprocedural frontal radiograph of the mediastinumdemonstrates a right PICC, with the catheter tip projected at the region of SVC. IMPRESSION right PICC, with the catheter tip projected at the region of SVC. Thank you for letting us participate in the care of this patient. Forquestions regarding this report, please contact the number below. Adrienne Medellin MD IMG FLUORO ORDERABLE S * PICC Line Rewire Is PICC procedure required PRIOR to patients discharge? No (11/16/2020 3:27 PM EST) Narrative Justus Ballard, RN - 11/16/2020 3:27 PM EST Justus Ballard, RN ? 11/16/2020 ??3:54 PM PICC/Midline Insertion Procedure Note Indications: Medication Administration This insertion was not to replace a malfunctioning catheter. This insertion was not due to a suspected line-associated infection. Location of Procedure: X-Ray Room 11 Risks and Benefits: The risks and benefits of this procedure were reviewed and informed consent was obtained obtained. Time Out: Prior to the start of the procedure, the patient's identity, intended procedure, site/side, correct patient positioning and presence of the site jeffrey was confirmed as applicable. The medical history and chart were reviewed to rule out potential contraindications to the planned procedure. Hand Hygiene: The agriculture scientist did perform hand hygiene prior to line insertion. Catheter type: PICC Lot number: [id number] Procedure Technique: Skin was prepped with chlorhexidine. Skin preparation agent was completely dry at the time of first skin puncture. The following barrier precaution methods were used:large sterile drape, maske/eye shield, large sterile gown, sterile gloves and cap. 3 ml of 1% Lidocaine was used for skin wheal. Ultrasound was used for guidance. ??Radiographic contrast agent was not injected for vein identification. Procedure Details: Order received for catheter placement. A 4 Fr. single lumen Bard Power catheter was placed into the right basilic vein over a 0.018 inch guidewire using modified seldinger technique and fluoroscopy. Arm circumference was 32 cm at 2 cm above the insertion site. Final catheter length (with trimming): 37 cm Internal: 37 cm External: 0 cm Tip in SVC per MD Ann. The line was not placed over a guidewire. Post Procedure: Diagnosis: Blood return noted on aspiration of line after placement confirmed. 5 mls of normal saline infused free flowing to gravity via PICC after insertion. Sterile dressing applied: CHG Impregnated Tegaderm. Findings: The patient did tolerate the procedure well. No Complications. Procedure Comments: picc rewired from 2 down to 1 Justus Ballard RN 11/16/2020 Adrienne Medellin MD PROCEDURE/MINOR SURG ICAL ORDERABLES * (ABNORMAL) Differential, Automated (11/16/2020 12:31 AM EST) Neutrophil % 64.5 % [facility] Neutrophil Absolute 4.80 1.70 - 6.10 x10(3)/mc L [facility] Lymph % 23.5 % [facility] Lymphocytes Abs 1.8 0.9 - 3.2 x10(3)/mc L [facility] Monocyte % 7.9 % [facility] Monocyte Abs 0.6 0.3 - 0.9 x10(3)/[facility] Eos % 2.7 % [facility] Eosinophils Abs 0.2 0.0 - 0.4 x10(3)/[facility] Basophil % 0.5 % [facility] Baso Absolute 0.0 0.0 - 0.1 x10(3)/[facility] Immature Gran % 0.90 % [facility] Comment: Immature granulocytes(IG's)percentage and absolute count will include metamyelocytes, myelocytes, and promyelocytes. Blood smears from CBCs yielding IG's will be scanned manually for concordance. If this scan disagrees with the automated IG or if promyelocytes are noted, a manual differential will be performed. Immature Gran Absolute 0.07(H) 0.00 - 0.04 x10(3)/[facility] Blood specimen (specimen) 11/16/2020 12:31 AM EST 11/16/2020 12:38 AM EST Narrative Resulting Agency Comment Spec In Lab Norberto Gonzalez MD HEMATOLOGY ORDERABLE S Performing Organization Address City/State/[facility] Co de Phone Number [facility] [address] * (ABNORMAL) Hemogram (11/16/2020 12:31 AM EST) White Blood Cell 7.4 4.0 - 9.5 x10(3)/[facility] Red Blood Cell 3.59(L) 4.58 - 5.54 x10(6)/[facility] Hemoglobin 10.9(L) 13.7 - 16.5 gm/dL [facility] Hematocrit 32.7(L) 40.5 - 48.5 % [facility] Mean Cell Volume 91.1 82.9 - 93.1 fL [facility] Mean Cell Hemoglobin 30.4 27.5 - 32.1 pg [facility] Mean Cell Hemoglobin Concentration 33.3 32.0 - 35.7 gm/dL [facility] Platelet 254 145 - 357 x10(3)/mc L [facility] RDW Standard Deviation 41.8 36.0 - 45.0 fL [facility] RDW coefficient of variation 12.7 11.4 - 13.8 % [facility] Mean Platelet Volume 11.0 7.6 - 12.9 fL [facility] NRBC% auto 0.0 % [facility] NRBC Absolute 0.000 0.000 - 0.000 x10(3)/mc L [facility] Blood specimen (specimen) 11/16/2020 12:31 AM EST 11/16/2020 12:38 AM EST Narrative Resulting Agency Comment Spec In Lab Norberto Gonzalez MD HEMATOLOGY ORDERABLE S [facility] [place] [address] * Phosphorus (11/16/2020 12:31 AM EST) Phosphorus 4.4 2.5 - 4.5 mg/dL [facility] Blood specimen (specimen) 11/16/2020 12:31 AM EST 11/16/2020 12:38 AM EST Narrative Resulting Agency Comment Spec In Lab Radha Bolden MD CHEMISTRY ORDERABLES [facility] [place] [address] * Magnesium (11/16/2020 12:31 AM EST) Magnesium 0.78 0.69 - 1.07 mmol/L [facility] Blood specimen (specimen) 11/16/2020 12:31 AM EST 11/16/2020 12:38 AM EST Narrative Resulting Agency Comment Spec In Lab Radha Bolden MD CHEMISTRY ORDERABLES [facility] [place] [address] * (ABNORMAL) Basic Metabolic Panel (non-fasting) (11/16/2020 12:31 AM EST) Glucose 116 65 - 199 mg/dL [facility] Comment:Diabetes: >=200 mg/d L plus symptoms Blood Urea Nitrogen 30(H) 10 - 20 mg/dL [facility] Creatinine 0.99 0.80 - 1.50 mg/dL [facility] Sodium 136 135 - 145 mmol/L [facility] Potassium 4.1 3.5 - 5.0 mmol/L [facility] Comment: Please note: ??Patients with WBC >100,000 may have falsely elevated Potassium levels. ??For accurate Potassium quantification in these patients send serum separator tube (gold top) for subsequent determinations. ??Contact the Clinical Chemistry Laboratory if there are any questions. Chloride 104 98 - 107 mmol/L [facility] Carbon Dioxide 22 22 - 31 mmol/L [facility] Anion Gap 10 5 - 15 mmol/L [facility] Calcium 9.3 8.5 - 10.5 mg/dL [facility] Est Glomerular Filtration Rate 87 >=60 mL/min/1. 73 m?? [facility] Comment: This patient? s estimated glomerular filtration rate (eGFR) is between 87 mL/min/1.73 m2 (patients with less muscle mass per kg body weight) and 100 mL/min/1.73 m2 (patients with more muscle mass per kg body weight) as determined by the CKD-EPI equation. Assessment of eGFR is not appropriate when creatinine concentrations are rapidly changing. For clinical decisions where creatinine clearance will affect therapy, a 24-hour urine creatinine clearance may be advised. Assignment of CKD stage 1 ? 5 for patients with an eGFR near the transition point between stages may be based on clinical assessment of muscle mass and symptoms in addition to eGFR. Blood specimen (specimen) 11/16/2020 12:31 AM EST 11/16/2020 12:38 AM EST Narrative Resulting Agency Comment Spec In Lab Radha Bolden MD CHEMISTRY ORDERABLES [facility] [place] [address] * XR Shoulder Left (Generic) (11/15/2020 7:01 PM EST) Anatomical Region Laterality Modality Shoulder Left Digital Radiogra phy Impressions 11/15/2020 7:36 PM EST 1. ??Osteoarthropathy the glenohumeral and acromioclavicular joints. 2. ??No appreciable fracture. 3. ??Rotator cuff calcific tendinopathy. Thank you for letting us participate in the care of this patient. For questions regarding this report, please contact the number below. ? Electronically signed by: Eliane Stewart MD, [facility] ([phone]), at 11/15/2020 7:36 PM Narrative 11/15/2020 7:36 PM EST EXAMINATION: XR SHOULDER LEFT (GENERIC) CLINICAL HISTORY: tender to palpation AC joint (as entered by ordering provider in the order requisition) TECHNIQUE: AP, Grashey, scapular Y, and axillary views of the left shoulder. COMPARISON: CT chest, abdomen, pelvis 10/26/2020. FINDINGS: Glenohumeral joint space is preserved. There is marginal osteophyte formation at the inferior margin of the humeral head. There is subchondral sclerosis of the glenoid. Small marginal osteophytes of the acromioclavicular joint. No acute fracture. Normal alignment of the acromioclavicular and glenohumeral joints. Partial visualization of spinal fusion hardware with skin sharla at the cervical thoracic junction. A focus of calcific density projecting adjacent to the greater tuberosity, best seen on the axillary view, consistent with rotator cuff calcific tendinopathy. Procedure Note Eliane Stewart MD - 11/15/2020 EXAMINATION: XR SHOULDER LEFT (GENERIC) CLINICAL HISTORY: tender to palpation AC joint (as entered by orderingprovider in the order requisition) TECHNIQUE: AP, Grashey, scapular Y, and axillary views of the left shoulder. COMPARISON: CT chest, abdomen, pelvis 10/26/2020. FINDINGS: Glenohumeral joint space is preserved. There is marginal osteophyteformation at the inferior margin of the humeral head. There is subchondral sclerosis ofthe glenoid. Small marginal osteophytes of the acromioclavicular joint. Noacute fracture. Normal alignment of the acromioclavicular and glenohumeraljoints. Partial visualization of spinal fusion hardware with skin sharla at the cervical thoracic junction. A focus of calcific density projectingadjacent to the greater tuberosity, best seen on the axillary view, consistent withrotator cuff calcific tendinopathy. IMPRESSION 1. Osteoarthropathy the glenohumeral and acromioclavicular joints. 2. No appreciable fracture. 3. Rotator cuff calcific tendinopathy. Thank you for letting us participate in the care of this patient. Forquestions regarding this report, please contact the number below. Adrienne Medellin MD IMG DX ORDERABLES * XR Fingers Min 2 views Left (Generic) (11/15/2020 2:58 PM EST) Anatomical Region Laterality Modality Hand Left Digital Radiogra phy Impressions 11/15/2020 3:57 PM EST 1. ??No fracture or dislocation. 2. ??Osteoarthropathy of the basal joint and wrist. I have personally reviewed the image(s) and the resident's interpretation and agree with the findings, Crys Joaquin MD at 11/15/2020 3:57 PM Thank you for letting us participate in the care of this patient. For questions regarding this report, please contact the number below. ? Electronically signed by: Crys Joaquin MD, [facility] ([phone]), at 11/15/2020 3:57 PM Narrative 11/15/2020 3:57 PM EST EXAMINATION: XR FINGERS MIN 2 VIEWS LEFT (GENERIC) CLINICAL HISTORY: s/p trauma - SCI, new left 1st metacarpal point tenderness and pain, please eval for bony pathology TECHNIQUE: 3 views LEFT finger COMPARISON: Left wrist radiographs 11/15/2020. FINDINGS: No fracture or dislocation. Osteoarthropathy changes are again seen at the first carpometacarpal joint, STT joint, and radiocarpal joint. A well-corticated osseous fragment adjacent to the base of the first proximal phalanx is likely the sequela of prior injury. Procedure Note Crys Joaquin MD - 11/15/2020 EXAMINATION: XR FINGERS MIN 2 VIEWS LEFT (GENERIC) CLINICAL HISTORY: s/p trauma - SCI, new left 1st metacarpal pointtenderness and pain, please eval for bony pathology TECHNIQUE: 3 views LEFT finger COMPARISON: Left wrist radiographs 11/15/2020. FINDINGS: No fracture or dislocation. Osteoarthropathy changes are again seen at thefirst carpometacarpal joint, STT joint, and radiocarpal joint. Awell-corticated osseous fragment adjacent to the base of the first proximal phalanx islikely the sequela of prior injury. IMPRESSION 1. No fracture or dislocation. 2. 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 I have personally reviewed the image(s) and the resident's interpretationand agree with the findings, Crys Joaquin MD at 11/15/2020 3:57 PM Thank you for letting us participate in the care of this patient. Forquestions regarding this report, please contact the number below. Adrienne Medellin MD IMG DX ORDERABLES * XR Wrist 3 Views Left (11/15/2020 2:58 PM EST) Anatomical Region Laterality Modality Left Digital Radiogra phy Impressions 11/15/2020 3:08 PM EST No acute osseous pathology. Osteoarthritis of the wrist. Thank you for letting us participate in the care of this patient. For questions regarding this report, please contact the number below. ? Narrative 11/15/2020 3:08 PM EST EXAMINATION: XR WRIST 3 VIEWS LEFT CLINICAL HISTORY: s/p trauma - SCI, new left thumb and wrist pain with point tenderness please eval for bony pathology TECHNIQUE: PA, oblique and lateral of the left wrist COMPARISON: None FINDINGS: No fracture or dislocation is seen. Osteoarthritis of the left wrist is present. There is mild narrowing of the medial aspect of the radiocarpal articulation, the triscaphe joint and the first carpal metacarpal joint. Small osteophytes are present at the first carpal metacarpal joint. Procedure Note Tre Mendez MD - 11/15/2020 EXAMINATION: XR WRIST 3 VIEWS LEFT CLINICAL HISTORY: s/p trauma - SCI, new left thumb and wrist pain withpoint tenderness please eval for bony pathology TECHNIQUE: PA, oblique and lateral of the left wrist COMPARISON: None FINDINGS: No fracture or dislocation is seen. Osteoarthritis of the left wrist is present. There is mild narrowing ofthe medial aspect of the radiocarpal articulation, the triscaphe joint and thefirst carpal metacarpal joint. Small osteophytes are present at the firstcarpal metacarpal joint. IMPRESSION No acute osseous pathology. Osteoarthritis of the wrist. Thank you for letting us participate in the care of this patient. Forquestions regarding this report, please contact the number below. Adrienne Medellin MD IMG DX ORDERABLES * (ABNORMAL) Differential, Automated (11/15/2020 2:18 AM EST) Neutrophil % 62.5 % [facility] Neutrophil Absolute 4.66 1.70 - 6.10 x10(3)/mc L [facility] Lymph % 25.2 % [facility] Lymphocytes Abs 1.9 0.9 - 3.2 x10(3)/mc L [facility] Monocyte % 8.6 % [facility] Monocyte Abs 0.6 0.3 - 0.9 x10(3)/mc L [facility] Eos % 2.1 % [facility] Eosinophils Abs 0.2 0.0 - 0.4 x10(3)/mc L [facility] Basophil % 0.7 % [facility] Baso Absolute 0.0 0.0 - 0.1 x10(3)/mc L [facility] Immature Gran % 0.90 % [facility] Comment: Immature granulocytes(IG's)percentage and absolute count will include metamyelocytes, myelocytes, and promyelocytes. Blood smears from CBCs yielding IG's will be scanned manually for concordance. If this scan disagrees with the automated IG or if promyelocytes are noted, a manual differential will be performed. Immature Gran Absolute 0.07(H) 0.00 - 0.04 x10(3)/mc L [facility] Blood specimen (specimen) 11/15/2020 2:18 AM EST 11/15/2020 2:30 AM EST Narrative Resulting Agency Comment Spec In Lab Norberto Gonzalez MD HEMATOLOGY ORDERABLE S [facility] [place] [address] * (ABNORMAL) Hemogram (11/15/2020 2:18 AM EST) White Blood Cell 7.5 4.0 - 9.5 x10(3)/mc L [facility] Red Blood Cell 3.63(L) 4.58 - 5.54 x10(6)/mc L [facility] Hemoglobin 10.9(L) 13.7 - 16.5 gm/dL [facility] Hematocrit 33.8(L) 40.5 - 48.5 % [facility] Mean Cell Volume 93.1 82.9 - 93.1 fL [facility] Mean Cell Hemoglobin 30.0 27.5 - 32.1 pg [facility] Mean Cell Hemoglobin Concentration 32.2 32.0 - 35.7 gm/dL [facility] Platelet 261 145 - 357 x10(3)/mc L [facility] RDW Standard Deviation 43.1 36.0 - 45.0 fL [facility] RDW coefficient of variation 12.7 11.4 - 13.8 % [facility] Mean Platelet Volume 10.5 7.6 - 12.9 fL [facility] NRBC% auto 0.0 % [facility] NRBC Absolute 0.000 0.000 - 0.000 x10(3)/mc L [facility] Blood specimen (specimen) 11/15/2020 2:18 AM EST 11/15/2020 2:30 AM EST Narrative Resulting Agency Comment Spec In Lab Norberto Gonzalez MD HEMATOLOGY ORDERABLE S Performing Organization Address [facility] Co de Phone Number [facility] [place] [address] * Phosphorus (11/15/2020 2:18 AM EST) Phosphorus 4.0 2.5 - 4.5 mg/dL [facility] Blood specimen (specimen) 11/15/2020 2:18 AM EST 11/15/2020 2:30 AM EST Narrative Resulting Agency Comment Spec In Lab Radha Bolden MD CHEMISTRY ORDERABLES Performing Organization Address [facility] de Phone Number [facility] [place] [address] * Magnesium (11/15/2020 2:18 AM EST) Magnesium 0.77 0.69 - 1.07 mmol/L [facility] Blood specimen (specimen) 11/15/2020 2:18 AM EST 11/15/2020 2:30 AM EST Narrative Resulting Agency Comment Spec In Lab Radha Bolden MD CHEMISTRY ORDERABLES Performing Organization Address [facility] Co de Phone Number [facility] [address] * (ABNORMAL) Basic Metabolic Panel (non-fasting) (11/15/2020 2:18 AM EST) Glucose 112 65 - 199 mg/dL [facility] Comment:Diabetes: >=200 mg/d L plus symptoms Blood Urea Nitrogen 34(H) 10 - 20 mg/dL [facility] Creatinine 0.90 0.80 - 1.50 mg/dL [facility] Sodium 138 135 - 145 mmol/L [facility] Potassium 4.1 3.5 - 5.0 mmol/L [facility] Comment: Please note: ??Patients with WBC >100,000 may have falsely elevated Potassium levels. ??For accurate Potassium quantification in these patients send serum separator tube (gold top) for subsequent determinations. ??Contact the Clinical Chemistry Laboratory if there are any questions. Chloride 106 98 - 107 mmol/L [facility] Carbon Dioxide 20(L) 22 - 31 mmol/L [facility] Anion Gap 12 5 - 15 mmol/L [facility] Calcium 9.3 8.5 - 10.5 mg/dL [facility] Est Glomerular Filtration Rate 97 >=60 mL/min/1. 73 m?? [facility] Comment: This patient? s estimated glomerular filtration rate (eGFR) is between 97 mL/min/1.73 m2 (patients with less muscle mass per kg body weight) and 113 mL/min/1.73 m2 (patients with more muscle mass per kg body weight) as determined by the CKD-EPI equation. Assessment of eGFR is not appropriate when creatinine concentrations are rapidly changing. For clinical decisions where creatinine clearance will affect therapy, a 24-hour urine creatinine clearance may be advised. Assignment of CKD stage 1 ? 5 for patients with an eGFR near the transition point between stages may be based on clinical assessment of muscle mass and symptoms in addition to eGFR. Blood specimen (specimen) 11/15/2020 2:18 AM EST 11/15/2020 2:30 AM EST Narrative Resulting Agency Comment Spec In Lab Radha Bolden MD CHEMISTRY ORDERABLES [facility] [place] [address] * (ABNORMAL) Differential, Automated (11/14/2020 1:12 AM EST) Neutrophil % 70.5 % [facility] Neutrophil Absolute 5.25 1.70 - 6.10 x10(3)/mc L [facility] Lymph % 18.8 % [facility] Lymphocytes Abs 1.4 0.9 - 3.2 x10(3)/ L [facility] Monocyte % 6.8 % [facility] Monocyte Abs 0.5 0.3 - 0.9 x10(3)/ L [facility] Eos % 2.7 % [facility] Eosinophils Abs 0.2 0.0 - 0.4 x10(3)/[facility] Basophil % 0.4 % [facility] Baso Absolute 0.0 0.0 - 0.1 x10(3)/[facility] Immature Gran % 0.80 % [facility] Comment: Immature granulocytes(IG's)percentage and absolute count will include metamyelocytes, myelocytes, and promyelocytes. Blood smears from CBCs yielding IG's will be scanned manually for concordance. If this scan disagrees with the automated IG or if promyelocytes are noted, a manual differential will be performed. Immature Gran Absolute 0.06(H) 0.00 - 0.04 x10(3)/[facility] Blood specimen (specimen) 11/14/2020 1:12 AM EST 11/14/2020 1:31 AM EST Narrative Resulting Agency Comment Spec In Lab Norberto Gonzalez MD HEMATOLOGY ORDERABLE S Performing Organization Address City/State/[facility] Co de Phone Number [facility] [place] [address] * (ABNORMAL) Hemogram (11/14/2020 1:12 AM EST) White Blood Cell 7.4 4.0 - 9.5 x10(3)/[facility] Red Blood Cell 3.39(L) 4.58 - 5.54 x10(6)/ L [facility] Hemoglobin 10.4(L) 13.7 - 16.5 gm/dL [facility] Hematocrit 31.6(L) 40.5 - 48.5 % [facility] Mean Cell Volume 93.2(H) 82.9 - 93.1 fL [facility] Mean Cell Hemoglobin 30.7 27.5 - 32.1 pg [facility] Mean Cell Hemoglobin Concentration 32.9 32.0 - 35.7 gm/dL [facility] Platelet 314 145 - 357 x10(3)/mc L [facility] RDW Standard Deviation 42.7 36.0 - 45.0 [facility] RDW coefficient of variation 12.5 11.4 - 13.8 % [facility] Mean Platelet Volume 10.7 7.6 - 12.9 [facility] NRBC% auto 0.0 % [facility] NRBC Absolute 0.000 0.000 - 0.000 x10(3)/mc L [facility] Blood specimen (specimen) 11/14/2020 1:12 AM EST 11/14/2020 1:31 AM EST Narrative Resulting Agency Comment Spec In Lab Norberto Gonzalez MD HEMATOLOGY ORDERABLE S Performing Organization Address City/[facility]/ZIP Co de Phone Number [facility] [place] [address] * Phosphorus (11/14/2020 1:12 AM EST) Phosphorus 4.1 2.5 - 4.5 mg/dL [facility] Blood specimen (specimen) 11/14/2020 1:12 AM EST 11/14/2020 1:31 AM EST Narrative Resulting Agency Comment Spec In Lab Radha Bolden MD CHEMISTRY ORDERABLES Performing Organization Address City/[facility] Co de Phone Number [facility] [place] [address] * Magnesium (11/14/2020 1:12 AM EST) Magnesium 0.77 0.69 - 1.07 mmol/L [facility] Blood specimen (specimen) 11/14/2020 1:12 AM EST 11/14/2020 1:31 AM EST Narrative Resulting Agency Comment Spec In Lab Radha Bolden MD CHEMISTRY ORDERABLES [facility] [place] [address] * (ABNORMAL) Basic Metabolic Panel (non-fasting) (11/14/2020 1:12 AM EST) Glucose 118 65 - 199 mg/dL [facility] Comment:Diabetes: >=200 mg/d L plus symptoms Blood Urea Nitrogen 38(H) 10 - 20 mg/dL [facility] Creatinine 0.85 0.80 - 1.50 mg/dL [facility] Sodium 138 135 - 145 mmol/L [facility] Potassium 4.1 3.5 - 5.0 mmol/L [facility] Comment: Please note: ??Patients with WBC >100,000 may have falsely elevated Potassium levels. ??For accurate Potassium quantification in these patients send serum separator tube (gold top) for subsequent determinations. ??Contact the Clinical Chemistry Laboratory if there are any questions. Chloride 109(H) 98 - 107 mmol/L [facility] Carbon Dioxide 19(L) 22 - 31 mmol/L [facility] Anion Gap 10 5 - 15 mmol/L [facility] Calcium 9.1 8.5 - 10.5 mg/dL [facility] Est Glomerular Filtration Rate 99 >=60 mL/min/1. 73 m?? [facility] Comment: This patient? s estimated glomerular filtration rate (eGFR) is between 99 mL/min/1.73 m2 (patients with less muscle mass per kg body weight) and 115 mL/min/1.73 m2 (patients with more muscle mass per kg body weight) as determined by the CKD-EPI equation. Assessment of eGFR is not appropriate when creatinine concentrations are rapidly changing. For clinical decisions where creatinine clearance will affect therapy, a 24-hour urine creatinine clearance may be advised. Assignment of CKD stage 1 ? 5 for patients with an eGFR near the transition point between stages may be based on clinical assessment of muscle mass and symptoms in addition to eGFR. Blood specimen (specimen) 11/14/2020 1:12 AM EST 11/14/2020 1:31 AM EST Narrative Resulting Agency Comment Spec In Lab Radha Bolden MD CHEMISTRY ORDERABLES [facility] [place] [address] * (ABNORMAL) Differential, Automated (11/13/2020 3:58 AM EST) Neutrophil % 72.9 % [facility] Neutrophil Absolute 6.82(H) 1.70 - 6.10 x10(3)/mc L [facility] Lymph % 16.4 % [facility] Lymphocytes Abs 1.5 0.9 - 3.2 x10(3)/mc L [facility] Monocyte % 6.8 % [facility] Monocyte Abs 0.6 0.3 - 0.9 x10(3)/mc L [facility] Eos % 2.4 % [facility] Eosinophils Abs 0.2 0.0 - 0.4 x10(3)/mc L [facility] Basophil % 0.5 % [facility] Baso Absolute 0.0 0.0 - 0.1 x10(3)/mc L [facility] Immature Gran % 1.00 % [facility] Comment: Immature granulocytes(IG's)percentage and absolute count will include metamyelocytes, myelocytes, and promyelocytes. Blood smears from CBCs yielding IG's will be scanned manually for concordance. If this scan disagrees with the automated IG or if promyelocytes are noted, a manual differential will be performed. Immature Gran Absolute 0.09(H) 0.00 - 0.04 x10(3)/mc L [facility] Blood specimen (specimen) 11/13/2020 3:58 AM EST 11/13/2020 4:12 AM EST Narrative Resulting Agency Comment Spec In Lab Norberto Gonzalez MD HEMATOLOGY ORDERABLE S [facility] [place] [address] * (ABNORMAL) Hemogram (11/13/2020 3:58 AM EST) White Blood Cell 9.4 4.0 - 9.5 x10(3)/[facility] Red Blood Cell 3.41(L) 4.58 - 5.54 x10(6)/[facility] Hemoglobin 10.4(L) 13.7 - 16.5 gm/dL [facility] Hematocrit 31.7(L) 40.5 - 48.5 % [facility] Mean Cell Volume 93.0 82.9 - 93.1 fL [facility] Mean Cell Hemoglobin 30.5 27.5 - 32.1 pg [facility] Mean Cell Hemoglobin Concentration 32.8 32.0 - 35.7 gm/dL [facility] Platelet 330 145 - 357 x10(3)/[facility] RDW Standard Deviation 41.9 36.0 - 45.0 [facility] RDW coefficient of variation 12.3 11.4 - 13.8 % [facility] Mean Platelet Volume 10.5 7.6 - 12.9 fL [facility] NRBC% auto 0.0 % [facility] NRBC Absolute 0.000 0.000 - 0.000 x10(3)/[facility] Blood specimen (specimen) 11/13/2020 3:58 AM EST 11/13/2020 4:12 AM EST Narrative Resulting Agency Comment Spec In Lab Norberto Gonzalez MD HEMATOLOGY ORDERABLE S Performing Organization Address City/[facility]/ZIP Co de Phone Number [facility] [place] [address] * Phosphorus (11/13/2020 3:58 AM EST) Pathologist [facility] Phosphorus 3.5 2.5 - 4.5 mg/dL [facility] Blood specimen (specimen) 11/13/2020 3:58 AM EST 11/13/2020 4:12 AM EST Narrative Resulting Agency Comment Spec In Lab Radha Bolden MD CHEMISTRY ORDERABLES Performing Organization Address [facility]/ZIP Co de Phone Number [facility] [place] [address] * Magnesium (11/13/2020 3:58 AM EST) [facility] Magnesium 0.76 0.69 - 1.07 mmol/L [facility] Blood specimen (specimen) 11/13/2020 3:58 AM EST 11/13/2020 4:12 AM EST Narrative Resulting Agency Comment Spec In Lab Radha Bolden MD CHEMISTRY ORDERABLES Performing Organization Address City/[facility]/ZIP Co de Phone Number [facility] [place] [place] [address] * (ABNORMAL) Basic Metabolic Panel (non-fasting) (11/13/2020 3:58 AM EST) Pathologist [facility] Glucose 109 65 - 199 mg/dL [facility] Comment:Diabetes: >=200 mg/d L plus symptoms Blood Urea Nitrogen 41(H) 10 - 20 mg/dL [facility] Creatinine 0.77(L) 0.80 - 1.50 mg/dL [facility] Sodium 139 135 - 145 mmol/L [facility] Potassium 4.2 3.5 - 5.0 mmol/L [facility] Comment: Please note: ??Patients with WBC >100,000 may have falsely elevated Potassium levels. ??For accurate Potassium quantification in these patients send serum separator tube (gold top) for subsequent determinations. ??Contact the Clinical Chemistry Laboratory if there are any questions. Chloride 110(H) 98 - 107 mmol/L [facility] Carbon Dioxide 20(L) 22 - 31 mmol/L [facility] Anion Gap 9 5 - 15 mmol/L [facility] Calcium 8.9 8.5 - 10.5 mg/dL [facility] Est Glomerular Filtration Rate 104 >=60 mL/min/1. 73 m?? [facility] Comment: This patient? s estimated glomerular filtration rate (eGFR) is between 104 mL/min/1.73 m2 (patients with less muscle mass per kg body weight) and 120 mL/min/1.73 m2 (patients with more muscle mass per kg body weight) as determined by the CKD-EPI equation. Assessment of eGFR is not appropriate when creatinine concentrations are rapidly changing. For clinical decisions where creatinine clearance will affect therapy, a 24-hour urine creatinine clearance may be advised. Assignment of CKD stage 1 ? 5 for patients with an eGFR near the transition point between stages may be based on clinical assessment of muscle mass and symptoms in addition to eGFR. Blood specimen (specimen) 11/13/2020 3:58 AM EST 11/13/2020 4:12 AM EST Narrative Resulting Agency Comment Spec In Lab Radha Bolden MD CHEMISTRY ORDERABLES [facility] [place] [address] * (ABNORMAL) Differential, Automated (11/12/2020 2:40 AM EST) Neutrophil % 66.6 % [facility] Neutrophil Absolute 5.38 1.70 - 6.10 x10(3)/mc L [facility] Lymph % 21.8 % [facility] Lymphocytes Abs 1.8 0.9 - 3.2 x10(3)/mc L [facility] Monocyte % 6.9 % [facility] Monocyte Abs 0.6 0.3 - 0.9 x10(3)/[facility] Eos % 3.2 % [facility] Eosinophils Abs 0.3 0.0 - 0.4 x10(3)/[facility] Basophil % 0.6 % [facility] Baso Absolute 0.0 0.0 - 0.1 x10(3)/[facility] Immature Gran % 0.90 % [facility] Comment: Immature granulocytes(IG's)percentage and absolute count will include metamyelocytes, myelocytes, and promyelocytes. Blood smears from CBCs yielding IG's will be scanned manually for concordance. If this scan disagrees with the automated IG or if promyelocytes are noted, a manual differential will be performed. Immature Gran Absolute 0.07(H) 0.00 - 0.04 x10(3)/[facility] Blood specimen (specimen) 11/12/2020 2:40 AM EST 11/12/2020 2:47 AM EST Narrative Resulting Agency Comment Spec In Lab Norberto Gonzalez MD HEMATOLOGY ORDERABLE S [facility] [place] [address] * (ABNORMAL) Hemogram (11/12/2020 2:40 AM EST) White Blood Cell 8.1 4.0 - 9.5 x10(3)/[facility] Red Blood Cell 3.39(L) 4.58 - 5.54 x10(6)/[facility] Hemoglobin 10.4(L) 13.7 - 16.5 gm/dL [facility] Hematocrit 31.5(L) 40.5 - 48.5 % [facility] Mean Cell Volume 92.9 82.9 - 93.1 fL [facility] Mean Cell Hemoglobin 30.7 27.5 - 32.1 pg [facility] Mean Cell Hemoglobin Concentration 33.0 32.0 - 35.7 gm/dL [facility] Platelet 326 145 - 357 x10(3)/mc L [facility] RDW Standard Deviation 42.4 36.0 - 45.0 fL [facility] RDW coefficient of variation 12.4 11.4 - 13.8 % [facility] Mean Platelet Volume 10.5 7.6 - 12.9 fL [facility] NRBC% auto 0.0 % [facility] NRBC Absolute 0.000 0.000 - 0.000 x10(3)/mc L [facility] Blood specimen (specimen) 11/12/2020 2:40 AM EST 11/12/2020 2:47 AM EST Narrative Resulting Agency Comment Spec In Lab Norberto Gonzalez MD HEMATOLOGY ORDERABLE S Performing Organization Address City/[facility]/ZIP Co de Phone Number [facility] [address] * Phosphorus (11/12/2020 2:40 AM EST) Phosphorus 4.0 2.5 - 4.5 mg/dL [facility] Blood specimen (specimen) 11/12/2020 2:40 AM EST 11/12/2020 2:47 AM EST Narrative Resulting Agency Comment Spec In Lab Radha Bolden MD CHEMISTRY ORDERABLES Performing Organization Address City/[facility]/ZIP Co de Phone Number [facility] [place] [address] * Magnesium (11/12/2020 2:40 AM EST) Magnesium 0.81 0.69 - 1.07 mmol/L [facility] Blood specimen (specimen) 11/12/2020 2:40 AM EST 11/12/2020 2:47 AM EST Narrative Resulting Agency Comment Spec In Lab Radha Bolden MD CHEMISTRY ORDERABLES [facility] [place] [address] * (ABNORMAL) Basic Metabolic Panel (non-fasting) (11/12/2020 2:40 AM EST) Glucose 97 65 - 199 mg/dL [facility] Comment:Diabetes: >=200 mg/d L plus symptoms Blood Urea Nitrogen 38(H) 10 - 20 mg/dL [facility] Creatinine 0.81 0.80 - 1.50 mg/dL [facility] Sodium 139 135 - 145 mmol/L [facility] Potassium 4.4 3.5 - 5.0 mmol/L [facility] Comment: Please note: ??Patients with WBC >100,000 may have falsely elevated Potassium levels. ??For accurate Potassium quantification in these patients send serum separator tube (gold top) for subsequent determinations. ??Contact the Clinical Chemistry Laboratory if there are any questions. Chloride 108(H) 98 - 107 mmol/L [facility] Carbon Dioxide 21(L) 22 - 31 mmol/L [facility] Anion Gap 10 5 - 15 mmol/L [facility] Calcium 8.9 8.5 - 10.5 mg/dL [facility] Est Glomerular Filtration Rate 101 >=60 mL/min/1. 73 m?? [facility] Comment: This patient? s estimated glomerular filtration rate (eGFR) is between 101 mL/min/1.73 m2 (patients with less muscle mass per kg body weight) and 118 mL/min/1.73 m2 (patients with more muscle mass per kg body weight) as determined by the CKD-EPI equation. Assessment of eGFR is not appropriate when creatinine concentrations are rapidly changing. For clinical decisions where creatinine clearance will affect therapy, a 24-hour urine creatinine clearance may be advised. Assignment of CKD stage 1 ? 5 for patients with an eGFR near the transition point between stages may be based on clinical assessment of muscle mass and symptoms in addition to eGFR. Blood specimen (specimen) 11/12/2020 2:40 AM EST 11/12/2020 2:47 AM EST Narrative Resulting Agency Comment Spec In Lab Radha Bolden MD CHEMISTRY ORDERABLES [facility] [place] [address] * (ABNORMAL) Differential, Automated (11/11/2020 4:15 AM EST) Neutrophil % 68.2 % [facility] Neutrophil Absolute 5.80 1.70 - 6.10 x10(3)/[facility] Lymph % 18.1 % [facility] Lymphocytes Abs 1.5 0.9 - 3.2 x10(3)/[facility] Monocyte % 8.4 % [facility] Monocyte Abs 0.7 0.3 - 0.9 x10(3)/[facility] Eos % 3.8 % [facility] Eosinophils Abs 0.3 0.0 - 0.4 x10(3)/[facility] Basophil % 0.6 % [facility] Baso Absolute 0.0 0.0 - 0.1 x10(3)/[facility] Immature Gran % 0.90 % [facility] Comment: Immature granulocytes(IG's)percentage and absolute count will include metamyelocytes, myelocytes, and promyelocytes. Blood smears from CBCs yielding IG's will be scanned manually for concordance. If this scan disagrees with the automated IG or if promyelocytes are noted, a manual differential will be performed. Immature Gran Absolute 0.08(H) 0.00 - 0.04 x10(3)/ L [facility] Blood specimen (specimen) 11/11/2020 4:15 AM EST 11/11/2020 4:37 AM EST Narrative Resulting Agency Comment Spec In Lab Norberto Gonzalez MD HEMATOLOGY ORDERABLE S [facility] [place] [address] * (ABNORMAL) Hemogram (11/11/2020 4:15 AM EST) White Blood Cell 8.5 4.0 - 9.5 x10(3)/mc L [facility] Red Blood Cell 3.34(L) 4.58 - 5.54 x10(6)/mc L [facility] Hemoglobin 10.2(L) 13.7 - 16.5 gm/dL [facility] Hematocrit 31.3(L) 40.5 - 48.5 % [facility] Mean Cell Volume 93.7(H) 82.9 - 93.1 fL [facility] Mean Cell Hemoglobin 30.5 27.5 - 32.1 pg [facility] Mean Cell Hemoglobin Concentration 32.6 32.0 - 35.7 gm/dL [facility] Platelet 329 145 - 357 x10(3)/mc L [facility] RDW Standard Deviation 42.5 36.0 - 45.0 [facility] RDW coefficient of variation 12.4 11.4 - 13.8 % [facility] Mean Platelet Volume 10.3 7.6 - 12.9 fL [facility] NRBC% auto 0.0 % [facility] NRBC Absolute 0.000 0.000 - 0.000 x10(3)/mc L [facility] Blood specimen (specimen) 11/11/2020 4:15 AM EST 11/11/2020 4:37 AM EST Narrative Resulting Agency Comment Spec In Lab Norberto Gonzalez MD HEMATOLOGY ORDERABLE S [facility] [place] [address] * Phosphorus (11/11/2020 4:15 AM EST) Phosphorus 4.4 2.5 - 4.5 mg/dL [facility] Blood specimen (specimen) 11/11/2020 4:15 AM EST 11/11/2020 4:37 AM EST Narrative Resulting Agency Comment Spec In Lab Radha Bolden MD CHEMISTRY ORDERABLES Performing Organization Address [facility] Co de Phone Number [facility] [place] [address] * Magnesium (11/11/2020 4:15 AM EST) Pathologist [facility] Magnesium 0.82 0.69 - 1.07 mmol/L [facility] Blood specimen (specimen) 11/11/2020 4:15 AM EST 11/11/2020 4:37 AM EST Narrative Resulting Agency Comment Spec In Lab Radha Bolden MD CHEMISTRY ORDERABLES Performing Organization Address [facility] Co de Phone Number [facility] [address] * (ABNORMAL) Basic Metabolic Panel (non-fasting) (11/11/2020 4:15 AM EST) Pathologist [facility] Glucose 96 65 - 199 mg/dL [facility] Comment:Diabetes: >=200 mg/d L plus symptoms Blood Urea Nitrogen 38(H) 10 - 20 mg/dL [facility] Creatinine 0.79(L) 0.80 - 1.50 mg/dL [facility] Sodium 138 135 - 145 mmol/L [facility] Potassium 4.5 3.5 - 5.0 mmol/L [facility] Comment: Please note: ??Patients with WBC >100,000 may have falsely elevated Potassium levels. ??For accurate Potassium quantification in these patients send serum separator tube (gold top) for subsequent determinations. ??Contact the Clinical Chemistry Laboratory if there are any questions. Chloride 107 98 - 107 mmol/L [facility] Carbon Dioxide 21(L) 22 - 31 mmol/L [facility] Anion Gap 10 5 - 15 mmol/L [facility] Calcium 8.8 8.5 - 10.5 mg/dL [facility] Est Glomerular Filtration Rate 103 >=60 mL/min/1. 73 m?? [facility] Comment: This patient? s estimated glomerular filtration rate (eGFR) is between 103 mL/min/1.73 m2 (patients with less muscle mass per kg body weight) and 119 mL/min/1.73 m2 (patients with more muscle mass per kg body weight) as determined by the CKD-EPI equation. Assessment of eGFR is not appropriate when creatinine concentrations are rapidly changing. For clinical decisions where creatinine clearance will affect therapy, a 24-hour urine creatinine clearance may be advised. Assignment of CKD stage 1 ? 5 for patients with an eGFR near the transition point between stages may be based on clinical assessment of muscle mass and symptoms in addition to eGFR. Blood specimen (specimen) 11/11/2020 4:15 AM EST 11/11/2020 4:37 AM EST Narrative Resulting Agency Comment Spec In Lab Radha Bolden MD CHEMISTRY ORDERABLES Performing Organization Address City/State/[facility] Co de Phone Number [facility] [address] * (ABNORMAL) Differential, Automated (11/10/2020 1:00 AM EST) Neutrophil % 65.3 % [facility] Neutrophil Absolute 4.43 1.70 - 6.10 x10(3)/mc L [facility] Lymph % 17.6 % [facility] Lymphocytes Abs 1.2 0.9 - 3.2 x10(3)/mc L [facility] Monocyte % 10.2 % [facility] Monocyte Abs 0.7 0.3 - 0.9 x10(3)/mc L [facility] Eos % 5.0 % [facility] Eosinophils Abs 0.3 0.0 - 0.4 x10(3)/[facility] Basophil % 0.6 % [facility] Baso Absolute 0.0 0.0 - 0.1 x10(3)/[facility] Immature Gran % 1.30 % [facility] Comment: Immature granulocytes(IG's)percentage and absolute count will include metamyelocytes, myelocytes, and promyelocytes. Blood smears from CBCs yielding IG's will be scanned manually for concordance. If this scan disagrees with the automated IG or if promyelocytes are noted, a manual differential will be performed. Immature Gran Absolute 0.09(H) 0.00 - 0.04 x10(3)/[facility] Blood specimen (specimen) 11/10/2020 1:00 AM EST 11/10/2020 1:32 AM EST Narrative Resulting Agency Comment Spec In Lab Norberto Gonzalez MD HEMATOLOGY ORDERABLE S Performing Organization Address City/State/[facility] Co de Phone Number [facility] [place] [phone] * (ABNORMAL) Hemogram (11/10/2020 1:00 AM EST) White Blood Cell 6.8 4.0 - 9.5 x10(3)/[facility] Red Blood Cell 3.38(L) 4.58 - 5.54 x10(6)/[facility] Hemoglobin 10.2(L) 13.7 - 16.5 gm/dL [facility] Hematocrit 31.5(L) 40.5 - 48.5 % [facility] Mean Cell Volume 93.2(H) 82.9 - 93.1 fL [facility] Mean Cell Hemoglobin 30.2 27.5 - 32.1 pg [facility] Mean Cell Hemoglobin Concentration 32.4 32.0 - 35.7 gm/dL [facility] Platelet 358(H) 145 - 357 x10(3)/[facility] RDW Standard Deviation 42.3 36.0 - 45.0 [facility] RDW coefficient of variation 12.3 11.4 - 13.8 % [facility] Mean Platelet Volume 10.6 7.6 - 12.9 [facility] NRBC% auto 0.0 % [facility] NRBC Absolute 0.000 0.000 - 0.000 x10(3)/mc L [facility] Blood specimen (specimen) 11/10/2020 1:00 AM EST 11/10/2020 1:32 AM EST Narrative Resulting Agency Comment Spec In Lab Norberto Gonzalez MD HEMATOLOGY ORDERABLE S Performing Organization Address City/[facility] [facility]/ZIP Co de Phone Number [facility] [place] [place] [address] * Phosphorus (11/10/2020 1:00 AM EST) Phosphorus 3.2 2.5 - 4.5 mg/dL [facility] Blood specimen (specimen) 11/10/2020 1:00 AM EST 11/10/2020 1:32 AM EST Narrative Resulting Agency Comment Spec In Lab Radha Bolden MD CHEMISTRY ORDERABLES Performing Organization Address City/[facility] Co de Phone Number [facility] [place] [address] * Magnesium (11/10/2020 1:00 AM EST) Magnesium 0.87 0.69 - 1.07 mmol/L [facility] Blood specimen (specimen) 11/10/2020 1:00 AM EST 11/10/2020 1:32 AM EST Narrative Resulting Agency Comment Spec In Lab Radha Bolden MD CHEMISTRY ORDERABLES Performing Organization Address City/[facility]/ZIP Co de Phone Number [facility] [place] [address] * (ABNORMAL) Basic Metabolic Panel (non-fasting) (11/10/2020 1:00 AM EST) Glucose 105 65 - 199 mg/dL [facility] Comment:Diabetes: >=200 mg/d L plus symptoms Blood Urea Nitrogen 36(H) 10 - 20 mg/dL [facility] Creatinine 0.91 0.80 - 1.50 mg/dL [facility] Sodium 137 135 - 145 mmol/L [facility] Potassium 4.6 3.5 - 5.0 mmol/L [facility] Comment: Please note: ??Patients with WBC >100,000 may have falsely elevated Potassium levels. ??For accurate Potassium quantification in these patients send serum separator tube (gold top) for subsequent determinations. ??Contact the Clinical Chemistry Laboratory if there are any questions. Chloride 103 98 - 107 mmol/L [facility] Carbon Dioxide 23 22 - 31 mmol/L [facility] Anion Gap 11 5 - 15 mmol/L [facility] Calcium 8.9 8.5 - 10.5 mg/dL [facility] Est Glomerular Filtration Rate 96 >=60 mL/min/1. 73 m?? [facility] Comment: This patient? s estimated glomerular filtration rate (eGFR) is between 96 mL/min/1.73 m2 (patients with less muscle mass per kg body weight) and 111 mL/min/1.73 m2 (patients with more muscle mass per kg body weight) as determined by the CKD-EPI equation. Assessment of eGFR is not appropriate when creatinine concentrations are rapidly changing. For clinical decisions where creatinine clearance will affect therapy, a 24-hour urine creatinine clearance may be advised. Assignment of CKD stage 1 ? 5 for patients with an eGFR near the transition point between stages may be based on clinical assessment of muscle mass and symptoms in addition to eGFR. Blood specimen (specimen) 11/10/2020 1:00 AM EST 11/10/2020 1:32 AM EST Narrative Resulting Agency Comment Spec In Lab Radha Bolden MD CHEMISTRY ORDERABLES [facility] [place] [place] [address] * XR Cervical Spine 2 or 3 Views (11/09/2020 3:11 PM EST) Anatomical Region Laterality Modality C-spine N/A Digital Radiogra phy Impressions 11/09/2020 3:29 PM EST Postoperative, hardware reduced C6-7 facet dislocation without radiographic finding of complication. Thank you for letting us participate in the care of this patient. For questions regarding this report, please contact the number below. ? Narrative 11/09/2020 3:29 PM EST EXAMINATION: XR CERVICAL SPINE 2 OR 3 VIEWS CLINICAL HISTORY: s/p C4-T2 PSIF, assess maintenance of reductio and hardware positioning TECHNIQUE: 2 views of the cervical spine, sitting in support collar COMPARISON: Radiographs and MRI October 27, 2020; CT October 26, 2020 FINDINGS: -Instrumented posterior cervicothoracic fusion C4-T2 with apophyseal screws and bridging rods is present. Hardware is intact without adjacent lucency, change in position or spine malalignment. -Right upper extremity PICC line has tip in distal superior vena cava. -Skin sharla remain in the posterior neck. No spondylolisthesis. Multilevel cervical spondylosis and facet arthropathy are unchanged. Lung apices are clear. Survey of skull base and prevertebral soft tissue is clear. Procedure Note Crys Joaquin MD - 11/09/2020 EXAMINATION: XR CERVICAL SPINE 2 OR 3 VIEWS CLINICAL HISTORY: s/p C4-T2 PSIF, assess maintenance of reductio andhardware positioning TECHNIQUE: 2 views of the cervical spine, sitting in support collar COMPARISON: Radiographs and MRI October 27, 2020; CT October 26, 2020 FINDINGS: -Instrumented posterior cervicothoracic fusion C4-T2 with apophysealscrews and bridging rods is present. Hardware is intact without adjacent lucency,change in position or spine malalignment. -Right upper extremity PICC line has tip in distal superior vena cava. -Skin sharla remain in the posterior neck. No spondylolisthesis. Multilevel cervical spondylosis and facetarthropathy are unchanged. Lung apices are clear. Survey of skull base and prevertebral soft tissueis clear. IMPRESSION Postoperative, hardware reduced C6-7 facet dislocation withoutradiographic finding of complication. Thank you for letting us participate in the care of this patient. Forquestions regarding this report, please contact the number below. Radha Bolden MD IMG DX ORDERABLES * (ABNORMAL) Differential, Automated (11/09/2020 2:25 AM EST) Neutrophil % 66.7 % [facility] Neutrophil Absolute 4.46 1.70 - 6.10 x10(3)/mc L [facility] Lymph % 15.2 % [facility] Lymphocytes Abs 1.0 0.9 - 3.2 x10(3)/mc L [facility] Monocyte % 11.8 % [facility] Monocyte Abs 0.8 0.3 - 0.9 x10(3)/mc L [facility] Eos % 4.8 % [facility] Eosinophils Abs 0.3 0.0 - 0.4 x10(3)/mc L [facility] Basophil % 0.6 % [facility] Baso Absolute 0.0 0.0 - 0.1 x10(3)/mc L [facility] Immature Gran % 0.90 % [facility] Comment: Immature granulocytes(IG's)percentage and absolute count will include metamyelocytes, myelocytes, and promyelocytes. Blood smears from CBCs yielding IG's will be scanned manually for concordance. If this scan disagrees with the automated IG or if promyelocytes are noted, a manual differential will be performed. Immature Gran Absolute 0.06(H) 0.00 - 0.04 x10(3)/mc L [facility] Blood specimen (specimen) 11/09/2020 2:25 AM EST 11/09/2020 2:45 AM EST Narrative Resulting Agency Comment Spec In Lab Norberto Gonzalez MD HEMATOLOGY ORDERABLE S [facility] [place] [address] * (ABNORMAL) Hemogram (11/09/2020 2:25 AM EST) White Blood Cell 6.7 4.0 - 9.5 x10(3)/mc L [facility] Red Blood Cell 3.27(L) 4.58 - 5.54 x10(6)/mc L [facility] Hemoglobin 9.8(L) 13.7 - 16.5 gm/dL [facility] Hematocrit 30.7(L) 40.5 - 48.5 % [facility] Mean Cell Volume 93.9(H) 82.9 - 93.1 fL [facility] Mean Cell Hemoglobin 30.0 27.5 - 32.1 pg [facility] Mean Cell Hemoglobin Concentration 31.9(L) 32.0 - 35.7 gm/dL [facility] Platelet 322 145 - 357 x10(3)/mc L [facility] RDW Standard Deviation 42.5 36.0 - 45.0 [facility] RDW coefficient of variation 12.4 11.4 - 13.8 % [facility] Mean Platelet Volume 10.5 7.6 - 12.9 [facility] NRBC% auto 0.0 % [facility] NRBC Absolute 0.000 0.000 - 0.000 x10(3)/mc L [facility] Blood specimen (specimen) 11/09/2020 2:25 AM EST 11/09/2020 2:45 AM EST Narrative Resulting Agency Comment Spec In Lab Norberto Gonzalez MD HEMATOLOGY ORDERABLE S Performing Organization Address City/[facility]/ZIP Co de Phone Number [facility] [address] * Phosphorus (11/09/2020 2:25 AM EST) Phosphorus 4.0 2.5 - 4.5 mg/dL [facility] Blood specimen (specimen) 11/09/2020 2:25 AM EST 11/09/2020 2:45 AM EST Narrative Resulting Agency Comment Spec In Lab Radha Bolden MD CHEMISTRY ORDERABLES Performing Organization Address [facility] Co de Phone Number [facility] [address] * Magnesium (11/09/2020 2:25 AM EST) Magnesium 0.93 0.69 - 1.07 mmol/L [facility] Blood specimen (specimen) 11/09/2020 2:25 AM EST 11/09/2020 2:45 AM EST Narrative Resulting Agency Comment Spec In Lab Radha Bolden MD CHEMISTRY ORDERABLES Performing Organization Address [facility] Co de Phone Number [facility] [place] [address] * (ABNORMAL) Basic Metabolic Panel (non-fasting) (11/09/2020 2:25 AM EST) Glucose 121 65 - 199 mg/dL [facility] Comment:Diabetes: >=200 mg/d L plus symptoms Blood Urea Nitrogen 33(H) 10 - 20 mg/dL [facility] Creatinine 0.79(L) 0.80 - 1.50 mg/dL [facility] Sodium 135 135 - 145 mmol/L [facility] Potassium 4.7 3.5 - 5.0 mmol/L [facility] Comment: Please note: ??Patients with WBC >100,000 may have falsely elevated Potassium levels. ??For accurate Potassium quantification in these patients send serum separator tube (gold top) for subsequent determinations. ??Contact the Clinical Chemistry Laboratory if there are any questions. Chloride 102 98 - 107 mmol/L [facility] Carbon Dioxide 23 22 - 31 mmol/L [facility] Anion Gap 10 5 - 15 mmol/L [facility] Calcium 8.7 8.5 - 10.5 mg/dL [facility] Est Glomerular Filtration Rate 103 >=60 mL/min/1. 73 m?? [facility] Comment: This patient? s estimated glomerular filtration rate (eGFR) is between 103 mL/min/1.73 m2 (patients with less muscle mass per kg body weight) and 119 mL/min/1.73 m2 (patients with more muscle mass per kg body weight) as determined by the CKD-EPI equation. Assessment of eGFR is not appropriate when creatinine concentrations are rapidly changing. For clinical decisions where creatinine clearance will affect therapy, a 24-hour urine creatinine clearance may be advised. Assignment of CKD stage 1 ? 5 for patients with an eGFR near the transition point between stages may be based on clinical assessment of muscle mass and symptoms in addition to eGFR. Blood specimen (specimen) 11/09/2020 2:25 AM EST 11/09/2020 2:45 AM EST Narrative Resulting Agency Comment Spec In Lab Radha Bolden MD CHEMISTRY ORDERABLES [facility] [place] [address] * CT Abdomen & Pelvis w Contrast (11/08/2020 10:42 AM EST) Anatomical Region Laterality Modality Abdomen, Pelvis Computed Tomogra phy Impressions 11/08/2020 11:04 AM EST 1. ??No signs of small bowel obstruction with the small bowel decompressed. There is a mild to moderate distention of the colon with gas, fluid, and stool which could represent ileus/early [place]. 2. ??There is a trace amount of intraperitoneal free air which is nonspecific and but presumably related to the recent gastrostomy tube placement. Alternatively, less likely, hollow viscus perforation may be considered. 3. ??New gastrostomy tube is appropriately positioned. 4. ??New atelectasis. Thank you for letting us participate in the care of this patient. For questions regarding this report, please contact the number below. ? Electronically signed by: Blayne Ferrara MD, [facility] ([phone]), at 11/08/2020 11:04 AM Narrative 11/08/2020 11:04 AM EST EXAMINATION: CT ABDOMEN AND PELVIS W CONTRAST CLINICAL HISTORY: Nausea/vomiting, SCI s/p spinal fixation, prolonged ileus, high PEG tube output, IV CONTRAST ONLY PLEASE TECHNIQUE: Helical CT of the abdomen and pelvis was performed following the intravenous administration of contrast. 115 mL of Omnipaque 350 IV administered. Oral contrast was administered. COMPARISON: CT chest abdomen pelvis on 10/26/2020 FINDINGS: Lower chest: There is new bilateral dependent atelectasis (LEFT larger than RIGHT). No pneumothorax or pleural effusion is present. Liver: Normal size and attenuation without lesions. Bile ducts: Nondilated. Gallbladder: No calcified gallstones. Normal caliber wall. Pancreas: Normal attenuation without ductal dilatation. Spleen: Normal. Adrenals: Normal. Kidneys: Normal. Urinary Bladder: A Beck catheter is present within the decompressed bladder lumen. Vasculature: No aneurysm. Lymph Nodes: No enlarged lymph nodes. Bowel: There is been interval placement of a gastrostomy tube which is appropriately positioned with the retention button within the gastric lumen. No fluid collections are present along the tract. The stomach is decompressed. No dilated small bowel is present. A moderate amount of fluid and gas and stool is present in the ascending and transverse colon. Contrast gas is also present within the descending and sigmoid colon with contrast in the rectum. Maximum colon diameter is 7 cm in the cecum and transverse colon. No transition point is seen. No pneumatosis is present. Contrast fills the nondilated appendix. Peritoneum and mesentery: No intraperitoneal free fluid is present. There is a trace amount of intraperitoneal free air. Abdominal wall: Normal. Reproductive organs: Normal. Osseous structures: No suspicious osseous lesions are seen. Degenerative changes are present in the lumbar spine greatest at L5-S1 with loss of intervertebral disc height and anterior and posterior disc osteophyte complexes. Procedure Note Blayne Ferrara MD - 11/08/2020 EXAMINATION: CT ABDOMEN AND PELVIS W CONTRAST CLINICAL HISTORY: Nausea/vomiting, SCI s/p spinal fixation, prolongedileus, high PEG tube output, IV CONTRAST ONLY PLEASE TECHNIQUE: Helical CT of the abdomen and pelvis was performed followingthe intravenous administration of contrast. 115 mL of Omnipaque 350 IVadministered. Oral contrast was administered. COMPARISON: CT chest abdomen pelvis on 10/26/2020 FINDINGS: Lower chest: There is new bilateral dependent atelectasis (LEFT largerthan RIGHT). No pneumothorax or pleural effusion is present. Liver: Normal size and attenuation without lesions. Bile ducts: Nondilated. Gallbladder: No calcified gallstones. Normal caliber wall. Pancreas: Normal attenuation without ductal dilatation. Spleen: Normal. Adrenals: Normal. Kidneys: Normal. Urinary Bladder: A Beck catheter is present within the decompressedbladder lumen. Vasculature: No aneurysm. Lymph Nodes: No enlarged lymph nodes. Bowel: There is been interval placement of a gastrostomy tube which is appropriately positioned with the retention button within the gastriclumen. No fluid collections are present along the tract. The stomach isdecompressed. No dilated small bowel is present. A moderate amount of fluid and gas andstool is present in the ascending and transverse colon. Contrast gas is alsopresent within the descending and sigmoid colon with contrast in the rectum.Maximum colon diameter is 7 cm in the cecum and transverse colon. No transitionpoint is seen. No pneumatosis is present. Contrast fills the nondilated appendix. Peritoneum and mesentery: No intraperitoneal free fluid is present. Thereis a trace amount of intraperitoneal free air. Abdominal wall: Normal. Reproductive organs: Normal. Osseous structures: No suspicious osseous lesions are seen. Degenerativechanges are present in the lumbar spine greatest at L5-S1 with loss ofintervertebral disc height and anterior and posterior disc osteophyte complexes. IMPRESSION 1. No signs of small bowel obstruction with the small bowel decompressed.There is a mild to moderate distention of the colon with gas, fluid, and stoolwhich could represent ileus/early [place]. 2. There is a trace amount of intraperitoneal free air which isnonspecific and but presumably related to the recent gastrostomy tube placement.Alternatively, less likely, hollow viscus perforation may be considered. 3. New gastrostomy tube is appropriately positioned. 4. New atelectasis. Thank you for letting us participate in the care of this patient. Forquestions regarding this report, please contact the number below. Electronically signed by: Blayne Ferrara MD, [facility]([phone]), at 11/08/2020 11:04 AM Radha Bolden MD IMG CT ORDERABLES * (ABNORMAL) Differential, Automated (11/08/2020 1:35 AM EST) Neutrophil % 75.7 % [facility] Neutrophil Absolute 6.99(H) 1.70 - 6.10 x10(3)/mc L [facility] Lymph % 11.9 % [facility] Lymphocytes Abs 1.1 0.9 - 3.2 x10(3)/mc L [facility] Monocyte % 9.3 % [facility] Monocyte Abs 0.9 0.3 - 0.9 x10(3)/mc L [facility] Eos % 2.2 % [facility] Eosinophils Abs 0.2 0.0 - 0.4 x10(3)/mc L [facility] Basophil % 0.3 % [facility] Baso Absolute 0.0 0.0 - 0.1 x10(3)/[facility] Immature Gran % 0.60 % [facility] Comment: Immature granulocytes(IG's)percentage and absolute count will include metamyelocytes, myelocytes, and promyelocytes. Blood smears from CBCs yielding IG's will be scanned manually for concordance. If this scan disagrees with the automated IG or if promyelocytes are noted, a manual differential will be performed. Immature Gran Absolute 0.06(H) 0.00 - 0.04 x10(3)/[facility] Blood specimen (specimen) 11/08/2020 1:35 AM EST 11/08/2020 1:56 AM EST Narrative Resulting Agency Comment Spec In Lab Norberto Gonzalez MD HEMATOLOGY ORDERABLE S [facility] [place] [address] * (ABNORMAL) Hemogram (11/08/2020 1:35 AM EST) White Blood Cell 9.2 4.0 - 9.5 x10(3)/[facility] Red Blood Cell 3.24(L) 4.58 - 5.54 x10(6)/[facility] Hemoglobin 9.9(L) 13.7 - 16.5 gm/dL [facility] Hematocrit 29.8(L) 40.5 - 48.5 % [facility] Mean Cell Volume 92.0 82.9 - 93.1 fL [facility] Mean Cell Hemoglobin 30.6 27.5 - 32.1 pg [facility] Mean Cell Hemoglobin Concentration 33.2 32.0 - 35.7 gm/dL [facility] Platelet 310 145 - 357 x10(3)/[facility] RDW Standard Deviation 41.0 36.0 - 45.0 fL [facility] RDW coefficient of variation 12.1 11.4 - 13.8 % [facility] Mean Platelet Volume 10.6 7.6 - 12.9 fL [facility] NRBC% auto 0.0 % [facility] NRBC Absolute 0.000 0.000 - 0.000 x10(3)/mc L [facility] Blood specimen (specimen) 11/08/2020 1:35 AM EST 11/08/2020 1:56 AM EST Narrative Resulting Agency Comment Spec In Lab Norberto Gonzalez MD HEMATOLOGY ORDERABLE S Performing Organization Address City/[facility]/ZIP Co de Phone Number [facility] [address] * (ABNORMAL) Phosphorus (11/08/2020 1:35 AM EST) Phosphorus 4.8(H) 2.5 - 4.5 mg/dL [facility] Blood specimen (specimen) 11/08/2020 1:35 AM EST 11/08/2020 1:55 AM EST Narrative Resulting Agency Comment Spec In Lab Radha Bolden MD CHEMISTRY ORDERABLES Performing Organization Address [facility] Co de Phone Number [facility] [address] * Magnesium (11/08/2020 1:35 AM EST) Magnesium 0.94 0.69 - 1.07 mmol/L [facility] Blood specimen (specimen) 11/08/2020 1:35 AM EST 11/08/2020 1:55 AM EST Narrative Resulting Agency Comment Spec In Lab Radha Bolden MD CHEMISTRY ORDERABLES Performing Organization Address [facility] Co de Phone Number [facility] [address] * (ABNORMAL) Basic Metabolic Panel (non-fasting) (11/08/2020 1:35 AM EST) Glucose 123 65 - 199 mg/dL [facility] Comment:Diabetes: >=200 mg/d L plus symptoms Blood Urea Nitrogen 30(H) 10 - 20 mg/dL [facility] Creatinine 0.83 0.80 - 1.50 mg/dL [facility] Sodium 136 135 - 145 mmol/L [facility] Potassium 4.7 3.5 - 5.0 mmol/L [facility] Comment: Please note: ??Patients with WBC >100,000 may have falsely elevated Potassium levels. ??For accurate Potassium quantification in these patients send serum separator tube (gold top) for subsequent determinations. ??Contact the Clinical Chemistry Laboratory if there are any questions. Chloride 99 98 - 107 mmol/L [facility] Carbon Dioxide 27 22 - 31 mmol/L [facility] Anion Gap 10 5 - 15 mmol/L [facility] Calcium 8.6 8.5 - 10.5 mg/dL [facility] Est Glomerular Filtration Rate 100 >=60 mL/min/1. 73 m?? [facility] Comment: This patient? s estimated glomerular filtration rate (eGFR) is between 100 mL/min/1.73 m2 (patients with less muscle mass per kg body weight) and 116 mL/min/1.73 m2 (patients with more muscle mass per kg body weight) as determined by the CKD-EPI equation. Assessment of eGFR is not appropriate when creatinine concentrations are rapidly changing. For clinical decisions where creatinine clearance will affect therapy, a 24-hour urine creatinine clearance may be advised. Assignment of CKD stage 1 ? 5 for patients with an eGFR near the transition point between stages may be based on clinical assessment of muscle mass and symptoms in addition to eGFR. Blood specimen (specimen) 11/08/2020 1:35 AM EST 11/08/2020 1:55 AM EST Narrative Resulting Agency Comment Spec In Lab Radha Bolden MD CHEMISTRY ORDERABLES [facility] [place] [address] * XR Abdomen 1 view (Generic) (11/07/2020 11:31 AM EST) Anatomical Region Laterality Modality Abdomen N/A Digital Radiogra phy Impressions 11/07/2020 11:41 AM EST Bowel gas pattern is within normal limits. No evidence of obstruction. Thank you for letting us participate in the care of this patient. For questions regarding this report, please contact the number below. ? Narrative 11/07/2020 11:41 AM EST EXAMINATION: XR ABDOMEN 1 VIEW (GENERIC) CLINICAL HISTORY: nausea TECHNIQUE: Supine abdomen COMPARISON: 11/03/2020 FINDINGS: Balloon retention gastrostomy tube projects over the expected location of the mid stomach, which is decompressed. There is an even distribution of air throughout small and large bowel without dilated loops. There is less gaseous distention than on prior. Small volume retained oral contrast material noted throughout the appendix and colon. No secondary signs of free air on this supine radiograph. No pneumatosis or portal venous gas. Visualized lung bases are clear. No focal osseous abnormality. Procedure Note Usha Liriano MD - 11/07/2020 EXAMINATION: XR ABDOMEN 1 VIEW (GENERIC) CLINICAL HISTORY: nausea TECHNIQUE: Supine abdomen COMPARISON: 11/03/2020 FINDINGS: Balloon retention gastrostomy tube projects over the expected location ofthe mid stomach, which is decompressed. There is an even distribution of air throughout small and large bowel without dilated loops. There is lessgaseous distention than on prior. Small volume retained oral contrast materialnoted throughout the appendix and colon. No secondary signs of free air on this supine radiograph. No pneumatosisor portal venous gas. Visualized lung bases are clear. No focal osseous abnormality. IMPRESSION Bowel gas pattern is within normal limits. No evidence of obstruction. Thank you for letting us participate in the care of this patient. Forquestions regarding this report, please contact the number below. Radha Bolden MD IMG DX ORDERABLES * EKG 12 Lead (11/06/2020 1:04 PM EST) Pathologist [facility] Ventricular rate 64 BPM MUSE SYSTEM Atrial Rate 64 BPM MUSE SYSTEM P-R Interval 138 ms MUSE SYSTEM QRS Duration 98 ms MUSE SYSTEM Q-T Interval 398 ms MUSE SYSTEM QTC Calculated (Bezet) 410 ms MUSE SYSTEM Calculated P Lund 71 degrees MUSE SYSTEM Calculated R Lund 64 degrees MUSE SYSTEM Calculated T Lund 19 degrees MUSE SYSTEM INTERPRETATION Normal sinus rhythm Normal ECG No previous ECGs available Confirmed by Monica Staley ([id number]) on 11/06/2020 1:52:38 PM MUSE SYSTEM 11/06/2020 1:04 PM EST 11/06/2020 1:52 PM EST Radha Bolden MD ECG ORDERABLES MUSE SYSTEM * (ABNORMAL) Differential, Automated (11/06/2020 4:40 AM EST) Pathologist [facility] Neutrophil % 77.4 % [facility] Neutrophil Absolute 8.71(H) 1.70 - 6.10 x10(3)/mc L [facility] Lymph % 11.8 % [facility] Lymphocytes Abs 1.3 0.9 - 3.2 x10(3)/mc L [facility] Monocyte % 8.8 % [facility] Monocyte Abs 1.0(H) 0.3 - 0.9 x10(3)/[facility] Eos % 1.3 % [facility] Eosinophils Abs 0.2 0.0 - 0.4 x10(3)/[facility] Basophil % 0.3 % [facility] Baso Absolute 0.0 0.0 - 0.1 x10(3)/[facility] Immature Gran % 0.40 % [facility] Comment: Immature granulocytes(IG's)percentage and absolute count will include metamyelocytes, myelocytes, and promyelocytes. Blood smears from CBCs yielding IG's will be scanned manually for concordance. If this scan disagrees with the automated IG or if promyelocytes are noted, a manual differential will be performed. Immature Gran Absolute 0.05(H) 0.00 - 0.04 x10(3)/[facility] Blood specimen (specimen) 11/06/2020 4:40 AM EST 11/06/2020 4:45 AM EST Narrative Resulting Agency Comment Spec In Lab Norberto Gonzalez MD HEMATOLOGY ORDERABLE S [facility] [place] [address] * (ABNORMAL) Hemogram (11/06/2020 4:40 AM EST) White Blood Cell 11.3(H) 4.0 - 9.5 x10(3)/[facility] Red Blood Cell 3.25(L) 4.58 - 5.54 x10(6)/[facility] Hemoglobin 10.0(L) 13.7 - 16.5 gm/dL [facility] Hematocrit 30.2(L) 40.5 - 48.5 % [facility] Mean Cell Volume 92.9 82.9 - 93.1 fL [facility] Mean Cell Hemoglobin 30.8 27.5 - 32.1 pg [facility] Mean Cell Hemoglobin Concentration 33.1 32.0 - 35.7 gm/dL [facility] Platelet 255 145 - 357 x10(3)/mc L [facility] RDW Standard Deviation 41.5 36.0 - 45.0 [facility] RDW coefficient of variation 12.1 11.4 - 13.8 % [facility] Mean Platelet Volume 10.5 7.6 - 12.9 [facility] NRBC% auto 0.0 % [facility] NRBC Absolute 0.000 0.000 - 0.000 x10(3)/mc L [facility] Blood specimen (specimen) 11/06/2020 4:40 AM EST 11/06/2020 4:45 AM EST Narrative Resulting Agency Comment Spec In Lab Norberto Gonzalez MD HEMATOLOGY ORDERABLE S Performing Organization Address City/[facility]/ZIP Co de Phone Number [facility] [place] [address] * Phosphorus (11/06/2020 4:40 AM EST) Phosphorus 3.9 2.5 - 4.5 mg/dL [facility] Blood specimen (specimen) 11/06/2020 4:40 AM EST 11/06/2020 4:45 AM EST Narrative Resulting Agency Comment Spec In Lab Radha Bolden MD CHEMISTRY ORDERABLES Performing Organization Address City/[facility]/ZIP Co de Phone Number [facility] [place] [address] * Magnesium (11/06/2020 4:40 AM EST) Magnesium 0.86 0.69 - 1.07 mmol/L [facility] Blood specimen (specimen) 11/06/2020 4:40 AM EST 11/06/2020 4:45 AM EST Narrative Resulting Agency Comment Spec In Lab Radha Bolden MD CHEMISTRY ORDERABLES [facility] [place] [address] * (ABNORMAL) Basic Metabolic Panel (non-fasting) (11/06/2020 4:40 AM EST) Glucose 106 65 - 199 mg/dL [facility] Comment:Diabetes: >=200 mg/d L plus symptoms Blood Urea Nitrogen 25(H) 10 - 20 mg/dL [facility] Creatinine 0.75(L) 0.80 - 1.50 mg/dL [facility] Sodium 134(L) 135 - 145 mmol/L [facility] Potassium 4.6 3.5 - 5.0 mmol/L [facility] Comment: Please note: ??Patients with WBC >100,000 may have falsely elevated Potassium levels. ??For accurate Potassium quantification in these patients send serum separator tube (gold top) for subsequent determinations. ??Contact the Clinical Chemistry Laboratory if there are any questions. Chloride 101 98 - 107 mmol/L [facility] Carbon Dioxide 25 22 - 31 mmol/L [facility] Anion Gap 8 5 - 15 mmol/L [facility] Calcium 8.2(L) 8.5 - 10.5 mg/dL [facility] Est Glomerular Filtration Rate 105 >=60 mL/min/1. 73 m?? [facility] Comment: This patient? s estimated glomerular filtration rate (eGFR) is between 105 mL/min/1.73 m2 (patients with less muscle mass per kg body weight) and 121 mL/min/1.73 m2 (patients with more muscle mass per kg body weight) as determined by the CKD-EPI equation. Assessment of eGFR is not appropriate when creatinine concentrations are rapidly changing. For clinical decisions where creatinine clearance will affect therapy, a 24-hour urine creatinine clearance may be advised. Assignment of CKD stage 1 ? 5 for patients with an eGFR near the transition point between stages may be based on clinical assessment of muscle mass and symptoms in addition to eGFR. Blood specimen (specimen) 11/06/2020 4:40 AM EST 11/06/2020 4:45 AM EST Narrative Resulting Agency Comment Spec In Lab Radha Bolden MD CHEMISTRY ORDERABLES [facility] [place] [address] * XR Chest One View (11/05/2020 11:54 AM EST) Anatomical Region Laterality Modality Chest N/A Digital Radiogra phy Impressions 11/05/2020 11:58 AM EST Lower lungs airways wall thickening and patchy retrocardiac opacity on the left may reflect aspiration. Thank you for letting us participate in the care of this patient. For questions regarding this report, please contact the number below. ? Narrative 11/05/2020 11:58 AM EST EXAMINATION: XR CHEST ONE VIEW CLINICAL HISTORY: Respiratory distress, spinal cord injury. Please eval for pulmonary process TECHNIQUE: Portable AP chest radiograph on ??11/05/2020 at 1142 hours. COMPARISON: 11/02/2020. FINDINGS: Right upper extremity PICC tip position compatible with upper SVC. Airways wall thickening in lower lungs, with patchy opacity at the medial left lung base/retrocardiac region. No pleural effusion or pneumothorax is seen. Cardiomediastinal silhouette and pulmonary vessel markings are within normal limits. No interval osseous findings. Procedure Note Lili Burgos MD - 11/05/2020 EXAMINATION: XR CHEST ONE VIEW CLINICAL HISTORY: Respiratory distress, spinal cord injury. Please evalfor pulmonary process TECHNIQUE: Portable AP chest radiograph on 11/05/2020 at 1142 hours. COMPARISON: 11/02/2020. FINDINGS: Right upper extremity PICC tip position compatible with upperSVC. Airways wall thickening in lower lungs, with patchy opacity at the medialleft lung base/retrocardiac region. No pleural effusion or pneumothorax isseen. Cardiomediastinal silhouette and pulmonary vessel markings are withinnormal limits. No interval osseous findings. IMPRESSION Lower lungs airways wall thickening and patchy retrocardiac opacity on the left may reflect aspiration. Thank you for letting us participate in the care of this patient. Forquestions regarding this report, please contact the number below. Robyn Baker [employer]PRESENT[employer]IVE IMG DX ORDERABLES * (ABNORMAL) Differential, Automated (11/05/2020 4:12 AM EST) Neutrophil % 72.8 % [facility] Neutrophil Absolute 6.97(H) 1.70 - 6.10 x10(3)/mc L [facility] Lymph % 14.7 % [facility] Lymphocytes Abs 1.4 0.9 - 3.2 x10(3)/mc L [facility] Monocyte % 9.8 % [facility] Monocyte Abs 0.9 0.3 - 0.9 x10(3)/mc L [facility] Eos % 1.9 % [facility] Eosinophils Abs 0.2 0.0 - 0.4 x10(3)/mc L [facility] Basophil % 0.2 % [facility] Baso Absolute 0.0 0.0 - 0.1 x10(3)/mc L [facility] Immature Gran % 0.60 % [facility] Comment: Immature granulocytes(IG's)percentage and absolute count will include metamyelocytes, myelocytes, and promyelocytes. Blood smears from CBCs yielding IG's will be scanned manually for concordance. If this scan disagrees with the automated IG or if promyelocytes are noted, a manual differential will be performed. Immature Gran Absolute 0.06(H) 0.00 - 0.04 x10(3)/mc L [facility] Blood specimen (specimen) 11/05/2020 4:12 AM EST 11/05/2020 4:18 AM EST Narrative Resulting Agency Comment Spec In Lab Noble Rodriguez MD HEMATOLOGY ORDERABLE S [facility] [place] [address] * (ABNORMAL) Hemogram (11/05/2020 4:12 AM EST) White Blood Cell 9.6(H) 4.0 - 9.5 x10(3)/mc L [facility] Red Blood Cell 3.41(L) 4.58 - 5.54 x10(6)/mc L [facility] Hemoglobin 10.5(L) 13.7 - 16.5 gm/dL [facility] Hematocrit 30.9(L) 40.5 - 48.5 % [facility] Mean Cell Volume 90.6 82.9 - 93.1 fL [facility] Mean Cell Hemoglobin 30.8 27.5 - 32.1 pg [facility] Mean Cell Hemoglobin Concentration 34.0 32.0 - 35.7 gm/dL [facility] Platelet 262 145 - 357 x10(3)/mc L [facility] RDW Standard Deviation 40.6 36.0 - 45.0 fL [facility] RDW coefficient of variation 12.4 11.4 - 13.8 % [facility] Mean Platelet Volume 10.5 7.6 - 12.9 fL [facility] NRBC% auto 0.0 % [facility] NRBC Absolute 0.000 0.000 - 0.000 x10(3)/mc L [facility] Blood specimen (specimen) 11/05/2020 4:12 AM EST 11/05/2020 4:18 AM EST Narrative Resulting Agency Comment Spec In Lab Noble Rodriguez MD HEMATOLOGY ORDERABLE S Performing Organization Address [facility] Co de Phone Number [facility] [address] * Phosphorus (11/05/2020 4:12 AM EST) Phosphorus 3.1 2.5 - 4.5 mg/dL [facility] Blood specimen (specimen) 11/05/2020 4:12 AM EST 11/05/2020 4:18 AM EST Narrative Resulting Agency Comment Spec In Lab Radha Bolden MD CHEMISTRY ORDERABLES Performing Organization Address [facility] de Phone Number [facility] [address] * Magnesium (11/05/2020 4:12 AM EST) Magnesium 0.76 0.69 - 1.07 mmol/L [facility] Blood specimen (specimen) 11/05/2020 4:12 AM EST 11/05/2020 4:18 AM EST Narrative Resulting Agency Comment Spec In Lab Radha Bolden MD CHEMISTRY ORDERABLES Performing Organization Address [facility] Co de Phone Number [facility] [place] [address] * (ABNORMAL) Basic Metabolic Panel (non-fasting) (11/05/2020 4:12 AM EST) Glucose 102 65 - 199 mg/dL [facility] Comment:Diabetes: >=200 mg/d L plus symptoms Blood Urea Nitrogen 18 10 - 20 mg/dL [facility] Creatinine 0.75(L) 0.80 - 1.50 mg/dL [facility] Sodium 134(L) 135 - 145 mmol/L [facility] Potassium 4.3 3.5 - 5.0 mmol/L [facility] Comment: Please note: ??Patients with WBC >100,000 may have falsely elevated Potassium levels. ??For accurate Potassium quantification in these patients send serum separator tube (gold top) for subsequent determinations. ??Contact the Clinical Chemistry Laboratory if there are any questions. Chloride 102 98 - 107 mmol/L [facility] Carbon Dioxide 23 22 - 31 mmol/L [facility] Anion Gap 9 5 - 15 mmol/L [facility] Calcium 8.2(L) 8.5 - 10.5 mg/dL [facility] Est Glomerular Filtration Rate 105 >=60 mL/min/1. 73 m?? [facility] Comment: This patient? s estimated glomerular filtration rate (eGFR) is between 105 mL/min/1.73 m2 (patients with less muscle mass per kg body weight) and 121 mL/min/1.73 m2 (patients with more muscle mass per kg body weight) as determined by the CKD-EPI equation. Assessment of eGFR is not appropriate when creatinine concentrations are rapidly changing. For clinical decisions where creatinine clearance will affect therapy, a 24-hour urine creatinine clearance may be advised. Assignment of CKD stage 1 ? 5 for patients with an eGFR near the transition point between stages may be based on clinical assessment of muscle mass and symptoms in addition to eGFR. Blood specimen (specimen) 11/05/2020 4:12 AM EST 11/05/2020 4:18 AM EST Narrative Resulting Agency Comment Spec In Lab Radha Bolden MD CHEMISTRY ORDERABLES [facility] [address] * SCAN DOC: IMPLANTABLE DEVICES (11/05/2020 12:00 AM EST) Narrative 11/05/2020 12:00 AM EST Ordered by an unspecified provider. Scanning Provider MEDIA MGR SCAN EXT O RDR/RSLT * Differential, Automated (11/04/2020 2:30 AM EST) Pathologist [facility] Neutrophil % 72.7 % [facility] Neutrophil Absolute 5.18 1.70 - 6.10 x10(3)/[facility] Lymph % 13.0 % [facility] Lymphocytes Abs 0.9 0.9 - 3.2 x10(3)/[facility] Monocyte % 10.2 % [facility] Monocyte Abs 0.7 0.3 - 0.9 x10(3)/[facility] Eos % 3.4 % [facility] Eosinophils Abs 0.2 0.0 - 0.4 x10(3)/[facility] Basophil % 0.3 % [facility] Baso Absolute 0.0 0.0 - 0.1 x10(3)/[facility] Immature Gran % 0.40 % [facility] Comment: Immature granulocytes(IG's)percentage and absolute count will include metamyelocytes, myelocytes, and promyelocytes. Blood smears from CBCs yielding IG's will be scanned manually for concordance. If this scan disagrees with the automated IG or if promyelocytes are noted, a manual differential will be performed. Immature Gran Absolute 0.03 0.00 - 0.04 x10(3)/[facility] Blood specimen (specimen) 11/04/2020 2:30 AM EST 11/04/2020 2:37 AM EST Narrative Resulting Agency Comment Spec In Lab Noble Rodriguez MD HEMATOLOGY ORDERABLE S [facility] [place] [address] * (ABNORMAL) Hemogram (11/04/2020 2:30 AM EST) Pathologist [facility] White Blood Cell 7.1 4.0 - 9.5 x10(3)/mc L [facility] Red Blood Cell 3.37(L) 4.58 - 5.54 x10(6)/[facility] Hemoglobin 10.2(L) 13.7 - 16.5 gm/dL [facility] Hematocrit 30.5(L) 40.5 - 48.5 % [facility] Mean Cell Volume 90.5 82.9 - 93.1 fL [facility] Mean Cell Hemoglobin 30.3 27.5 - 32.1 pg [facility] Mean Cell Hemoglobin Concentration 33.4 32.0 - 35.7 gm/dL [facility] Platelet 234 145 - 357 x10(3)/[facility] RDW Standard Deviation 40.3 36.0 - 45.0 [facility] RDW coefficient of variation 12.1 11.4 - 13.8 % [facility] Mean Platelet Volume 10.6 7.6 - 12.9 [facility] NRBC% auto 0.0 % [facility] NRBC Absolute 0.000 0.000 - 0.000 x10(3)/[facility] Blood specimen (specimen) 11/04/2020 2:30 AM EST 11/04/2020 2:37 AM EST Narrative Resulting Agency Comment Spec In Lab Noble Rodriguez MD HEMATOLOGY ORDERABLE S Performing Organization Address City/State/[facility] Co de Phone Number [facility] [place] [address] * Phosphorus (11/04/2020 2:30 AM EST) Phosphorus 2.7 2.5 - 4.5 mg/dL [facility] Blood specimen (specimen) 11/04/2020 2:30 AM EST 11/04/2020 2:37 AM EST Narrative Resulting Agency Comment Spec In Lab Radha Boledn MD CHEMISTRY ORDERABLES [facility] [place] [address] * Magnesium (11/04/2020 2:30 AM EST) Magnesium 0.78 0.69 - 1.07 mmol/L [facility] Blood specimen (specimen) 11/04/2020 2:30 AM EST 11/04/2020 2:37 AM EST Narrative Resulting Agency Comment Spec In Lab Radha Bolden MD CHEMISTRY ORDERABLES Performing Organization Address [facility] Co de Phone Number [facility] [place] [address] * (ABNORMAL) Basic Metabolic Panel (non-fasting) (11/04/2020 2:30 AM EST) Pathologist [facility] Glucose 137 65 - 199 mg/dL [facility] Comment:Diabetes: >=200 mg/d L plus symptoms Blood Urea Nitrogen 20 10 - 20 mg/dL [facility] Creatinine 0.72(L) 0.80 - 1.50 mg/dL [facility] Sodium 137 135 - 145 mmol/L [facility] Potassium 4.0 3.5 - 5.0 mmol/L [facility] Comment: Please note: ??Patients with WBC >100,000 may have falsely elevated Potassium levels. ??For accurate Potassium quantification in these patients send serum separator tube (gold top) for subsequent determinations. ??Contact the Clinical Chemistry Laboratory if there are any questions. Chloride 104 98 - 107 mmol/L [facility] Carbon Dioxide 25 22 - 31 mmol/L [facility] Anion Gap 8 5 - 15 mmol/L [facility] Calcium 8.1(L) 8.5 - 10.5 mg/dL [facility] Est Glomerular Filtration Rate 107 >=60 mL/min/1. 73 m?? [facility] Comment: This patient? s estimated glomerular filtration rate (eGFR) is between 107 mL/min/1.73 m2 (patients with less muscle mass per kg body weight) and 123 mL/min/1.73 m2 (patients with more muscle mass per kg body weight) as determined by the CKD-EPI equation. Assessment of eGFR is not appropriate when creatinine concentrations are rapidly changing. For clinical decisions where creatinine clearance will affect therapy, a 24-hour urine creatinine clearance may be advised. Assignment of CKD stage 1 ? 5 for patients with an eGFR near the transition point between stages may be based on clinical assessment of muscle mass and symptoms in addition to eGFR. Blood specimen (specimen) 11/04/2020 2:30 AM EST 11/04/2020 2:37 AM EST Narrative Resulting Agency Comment Spec In Lab Radha Bolden MD CHEMISTRY ORDERABLES Performing Organization Address [facility] Co de Phone Number [facility] [place] [address] * C. Difficile Screen (11/04/2020 12:42 AM EST) C Diff Interp Negative Negative [facility] Comment: Ag/Tox Neg C. diff?? Negative Clostridium difficile is not present in the specimen. If patient is having diarrhea suspected to be from an infectious cause, then Soap & Water Contact Precautions are still required. Stool specimen (specimen) 11/04/2020 12:42 AM EST 11/04/2020 1:27 AM EST Narrative Resulting Agency Comment Spec In Lab Gaurav Shoemaker MD MICROBIOLOGY - GENER AL ORDERABLES Performing Organization Address [facility] Co de Phone Number [facility] [place] [address] * XR Abdomen 1 view (Generic) (11/03/2020 12:37 PM EST) Anatomical Region Laterality Modality Abdomen N/A Digital Radiogra phy Impressions 11/03/2020 1:08 PM EST Diffuse gaseous distention of the stomach, small and large bowel. Thank you for letting us participate in the care of this patient. For questions regarding this report, please contact the number below. ? Narrative 11/03/2020 1:08 PM EST EXAMINATION: XR ABDOMEN 1 VIEW (GENERIC) CLINICAL HISTORY: abdominal distention, neurogenic bowel TECHNIQUE: Supine views of the abdomen and pelvis COMPARISON: November 01, 2020 FINDINGS: Interval removal of a an enteric feeding tube. Gaseous distention of the stomach, multiple loops of small and large bowel. Contrast opacifies the cecum and the appendix. Air and enteric contrast project in the rectum. No large volume free intraperitoneal air detected. The lung bases are clear. Procedure Note Rohit Ross MD - 11/03/2020 EXAMINATION: XR ABDOMEN 1 VIEW (GENERIC) CLINICAL HISTORY: abdominal distention, neurogenic bowel TECHNIQUE: Supine views of the abdomen and pelvis COMPARISON: November 01, 2020 FINDINGS: Interval removal of a an enteric feeding tube. Gaseous distention of the stomach, multiple loops of small and large bowel. Contrast opacifies thececum and the appendix. Air and enteric contrast project in the rectum. Nolarge volume free intraperitoneal air detected. The lung bases are clear. IMPRESSION Diffuse gaseous distention of the stomach, small and large bowel. Thank you for letting us participate in the care of this patient. Forquestions regarding this report, please contact the number below. Robyn Baker SECURITY SYSTEMS SALES REPRESENTATIVE IMG DX ORDERABLES * Place PICC Line: Contact Vascular Access Page [phone] Extremity to exclude: No restrictions; Is PICC procedure required PRIOR to patients discharge? Yes (11/03/2020 12:16 PM EST) Narrative Angely Oneil RN - 11/03/2020 12:16 PM EST Angely Oneil RN ? 11/03/2020 12:19 PM PICC/Midline Insertion Procedure Note Indications: TPN This insertion was not to replace a malfunctioning catheter. This insertion was not due to a suspected line-associated infection. Location of Procedure: X-Ray Room 11 Risks and Benefits: The risks and benefits of this procedure were reviewed and informed consent was obtained obtained. Time Out: Prior to the start of the procedure, the patient's identity, intended procedure, site/side, correct patient positioning and presence of the site jeffrey was confirmed as applicable. The medical history and chart were reviewed to rule out potential contraindications to the planned procedure. Hand Hygiene: The agriculture scientist did perform hand hygiene prior to line insertion. Catheter type: PICC Lot number: [id number] Procedure Technique: Skin was prepped with chlorhexidine. Skin preparation agent was completely dry at the time of first skin puncture. The following barrier precaution methods were used:large sterile drape, maske/eye shield, large sterile gown, sterile gloves and cap. 3 ml of 1% Lidocaine was used for skin wheal. Ultrasound was used for guidance. ??Radiographic contrast agent was not injected for vein identification. Procedure Details: Order received for catheter placement. A 5 Fr. double lumen Bard Power catheter was placed into the right basilic vein over a 0.018 inch guidewire using modified seldinger technique and fluoroscopy. Arm circumference was 35 cm at 2 cm above the insertion site. Final catheter length (with trimming): 37 cm Internal: 37 cm External: 0 cm Tip in SVC per Vladimir The line was not placed over a guidewire. Post Procedure: Diagnosis: CDIFF Blood return noted on aspiration of line after placement confirmed. 5 mls of normal saline infused free flowing to gravity via PICC after insertion. Sterile dressing applied: Biopatch and Sorbaview. Findings: The patient did tolerate the procedure well. No Complications. Procedure Comments: ANGELY ONEIL RN 11/03/2020 Robyn Baker APRN PROCEDURE/MINOR FINCH RGICAL ORDERABLES * XR PICC Placement Over 5 Years with Imaging Guidance (IV Team) (11/03/2020 11:53 AM EST) Anatomical Region Laterality Modality N/A Radio Fluoroscop y Impressions 11/03/2020 12:18 PM EST FINDINGS/IMPRESSION: Intraprocedural coned down frontal supine radiograph of the mediastinum demonstrates a right-sided PICC line, with the catheter tip projected over the lower SVC. Preliminary report signed by: Jeffrey Gilbert at 11/03/2020 12:05 PM I have personally reviewed the image(s) and the resident's interpretation and agree with the findings, Nallely Donato MD at 11/03/2020 12:18 PM Thank you for letting us participate in the care of this patient. For questions regarding this report, please contact the number below. ? Electronically signed by: Nallely Donato MD, [facility] ([phone]), at 11/03/2020 12:18 PM Narrative 11/03/2020 12:18 PM EST EXAMINATION: XR PICC PLACEMENT OVER 5 YEARS WITH IMAGING GUIDANCE (IV TEAM) CLINICAL HISTORY: Confirmation of PICC line placement TECHNIQUE: C-arm placement of PICC line. Limited view of the line tip only. COMPARISON: Portable AP chest radiograph 11/02/2020 Procedure Note Nallely Donato MD - 11/03/2020 EXAMINATION: XR PICC PLACEMENT OVER 5 YEARS WITH IMAGING GUIDANCE (IVTEAM) CLINICAL HISTORY: Confirmation of PICC line placement TECHNIQUE: C-arm placement of PICC line. Limited view of the line tiponly. COMPARISON: Portable AP chest radiograph 11/02/2020 IMPRESSION FINDINGS/IMPRESSION: Intraprocedural coned down frontal supine radiographof the mediastinum demonstrates a right-sided PICC line, with the catheter tip projected over the lower SVC. Preliminary report signed by: Jeffrey Gilbert at 11/03/2020 12:05 PM I have personally reviewed the image(s) and the resident's interpretationand agree with the findings, Nallely Donato MD at 11/03/2020 12:18 PM Thank you for letting us participate in the care of this patient. Forquestions regarding this report, please contact the number below. Electronically signed by: Nallely Donato MD, [facility]([phone]), at 11/03/2020 12:18 PM Robyn Ashley Baker [employer]S SALES REPRESENTATIVE IMG FLUORO ORDERAB LES * Differential, Automated (11/03/2020 3:15 AM EST) Neutrophil % 70.1 % [facility] Neutrophil Absolute 4.87 1.70 - 6.10 x10(3)/[facility] Lymph % 14.6 % [facility] Lymphocytes Abs 1.0 0.9 - 3.2 x10(3)/[facility] Monocyte % 10.5 % [facility] Monocyte Abs 0.7 0.3 - 0.9 x10(3)/[facility] Eos % 3.9 % [facility] Eosinophils Abs 0.3 0.0 - 0.4 x10(3)/[facility] Basophil % 0.3 % [facility] Baso Absolute 0.0 0.0 - 0.1 x10(3)/[facility] Immature Gran % 0.60 % [facility] Comment: Immature granulocytes(IG's)percentage and absolute count will include metamyelocytes, myelocytes, and promyelocytes. Blood smears from CBCs yielding IG's will be scanned manually for concordance. If this scan disagrees with the automated IG or if promyelocytes are noted, a manual differential will be performed. Immature Gran Absolute 0.04 0.00 - 0.04 x10(3)/[facility] Blood specimen (specimen) 11/03/2020 3:15 AM EST 11/03/2020 3:20 AM EST Narrative Resulting Agency Comment Spec In Lab Noble Rodriguez MD HEMATOLOGY ORDERABLE S [facility] [place] [address] * (ABNORMAL) Hemogram (11/03/2020 3:15 AM EST) White Blood Cell 6.9 4.0 - 9.5 x10(3)/mc L [facility] Red Blood Cell 3.61(L) 4.58 - 5.54 x10(6)/mc L [facility] Hemoglobin 11.1(L) 13.7 - 16.5 gm/dL [facility] Hematocrit 32.1(L) 40.5 - 48.5 % [facility] Mean Cell Volume 88.9 82.9 - 93.1 fL [facility] Mean Cell Hemoglobin 30.7 27.5 - 32.1 pg [facility] Mean Cell Hemoglobin Concentration 34.6 32.0 - 35.7 gm/dL [facility] Platelet 205 145 - 357 x10(3)/mc L [facility] RDW Standard Deviation 39.2 36.0 - 45.0 [facility] RDW coefficient of variation 12.0 11.4 - 13.8 % [facility] Mean Platelet Volume 10.6 7.6 - 12.9 fL [facility] NRBC% auto 0.0 % [facility] NRBC Absolute 0.000 0.000 - 0.000 x10(3)/mc L [facility] Blood specimen (specimen) 11/03/2020 3:15 AM EST 11/03/2020 3:20 AM EST Narrative Resulting Agency Comment Spec In Lab Noble Rodriguez MD HEMATOLOGY ORDERABLE S Performing Organization Address City/[facility]/ZIP Co de Phone Number [facility] [place] [address] * Phosphorus (11/03/2020 3:15 AM EST) [facility] Phosphorus 3.1 2.5 - 4.5 mg/dL [facility] Blood specimen (specimen) 11/03/2020 3:15 AM EST 11/03/2020 3:20 AM EST Narrative Resulting Agency Comment Spec In Lab Radha Bolden MD CHEMISTRY ORDERABLES Performing Organization Address [facility] Co de Phone Number [facility] [place] [address] * Magnesium (11/03/2020 3:15 AM EST) [facility] Magnesium 0.82 0.69 - 1.07 mmol/L [facility] Blood specimen (specimen) 11/03/2020 3:15 AM EST 11/03/2020 3:20 AM EST Narrative Resulting Agency Comment Spec In Lab Radha Bolden MD CHEMISTRY ORDERABLES Performing Organization Address [facility] Co de Phone Number [facility] [place] [address] * (ABNORMAL) Basic Metabolic Panel (non-fasting) (11/03/2020 3:15 AM EST) [facility] Glucose 85 65 - 199 mg/dL [facility] Comment:Diabetes: >=200 mg/d L plus symptoms Blood Urea Nitrogen 22(H) 10 - 20 mg/dL [facility] Creatinine 0.76(L) 0.80 - 1.50 mg/dL [facility] Sodium 137 135 - 145 mmol/L [facility] Potassium 4.1 3.5 - 5.0 mmol/L [facility] Comment: Please note: ??Patients with WBC >100,000 may have falsely elevated Potassium levels. ??For accurate Potassium quantification in these patients send serum separator tube (gold top) for subsequent determinations. ??Contact the Clinical Chemistry Laboratory if there are any questions. Chloride 103 98 - 107 mmol/L [facility] Carbon Dioxide 22 22 - 31 mmol/L [facility] Anion Gap 12 5 - 15 mmol/L [facility] Calcium 8.2(L) 8.5 - 10.5 mg/dL [facility] Est Glomerular Filtration Rate 104 >=60 mL/min/1. 73 m?? [facility] Comment: This patient? s estimated glomerular filtration rate (eGFR) is between 104 mL/min/1.73 m2 (patients with less muscle mass per kg body weight) and 121 mL/min/1.73 m2 (patients with more muscle mass per kg body weight) as determined by the CKD-EPI equation. Assessment of eGFR is not appropriate when creatinine concentrations are rapidly changing. For clinical decisions where creatinine clearance will affect therapy, a 24-hour urine creatinine clearance may be advised. Assignment of CKD stage 1 ? 5 for patients with an eGFR near the transition point between stages may be based on clinical assessment of muscle mass and symptoms in addition to eGFR. Blood specimen (specimen) 11/03/2020 3:15 AM EST 11/03/2020 3:20 AM EST Narrative Resulting Agency Comment Spec In Lab Radha Bolden MD CHEMISTRY ORDERABLES [facility] [place] [address] * XR Chest One View (11/02/2020 6:10 PM EST) Anatomical Region Laterality Modality Chest N/A Digital Radiogra phy Impressions 11/02/2020 6:40 PM EST No acute cardiopulmonary abnormality. Thank you for letting us participate in the care of this patient. For questions regarding this report, please contact the number below. ? Electronically signed by: Caleb Branch MD, [facility] ([phone]), at 11/02/2020 6:40 PM Narrative 11/02/2020 6:40 PM EST EXAMINATION: XR CHEST ONE VIEW CLINICAL HISTORY: fever, shortness of breath TECHNIQUE: 1 view of the chest COMPARISON: Chest x-ray 11/01/2020 and 10/30/2020 FINDINGS: Partially visualized cervical fusion hardware. Skin sharla project over the midline neck/superior mediastinum. No focal consolidation, pleural effusion or pneumothorax. Unchanged cardiomediastinal silhouette and osseous structures. Unremarkable upper abdomen. Procedure Note Krishan Branch MD - 11/02/2020 EXAMINATION: XR CHEST ONE VIEW CLINICAL HISTORY: fever, shortness of breath TECHNIQUE: 1 view of the chest COMPARISON: Chest x-ray 11/01/2020 and 10/30/2020 FINDINGS: Partially visualized cervical fusion hardware. Skin sharla project overthe midline neck/superior mediastinum. No focal consolidation, pleuraleffusion or pneumothorax. Unchanged cardiomediastinal silhouette and osseousstructures. Unremarkable upper abdomen. IMPRESSION No acute cardiopulmonary abnormality. Thank you for letting us participate in the care of this patient. Forquestions regarding this report, please contact the number below. Gaurav Shoemaker MD IMG DX ORDERABLES * (ABNORMAL) Differential, Automated (11/02/2020 3:52 AM EST) Neutrophil % 63.2 % [facility] Neutrophil Absolute 4.39 1.70 - 6.10 x10(3)/mc L [facility] Lymph % 19.4 % [facility] Lymphocytes Abs 1.4 0.9 - 3.2 x10(3)/[facility] Monocyte % 13.9 % [facility] Monocyte Abs 1.0(H) 0.3 - 0.9 x10(3)/[facility] Eos % 2.7 % [facility] Eosinophils Abs 0.2 0.0 - 0.4 x10(3)/[facility] Basophil % 0.4 % [facility] Baso Absolute 0.0 0.0 - 0.1 x10(3)/[facility] Immature Gran % 0.40 % [facility] Comment: Immature granulocytes(IG's)percentage and absolute count will include metamyelocytes, myelocytes, and promyelocytes. Blood smears from CBCs yielding IG's will be scanned manually for concordance. If this scan disagrees with the automated IG or if promyelocytes are noted, a manual differential will be performed. Immature Gran Absolute 0.03 0.00 - 0.04 x10(3)/[facility] Blood specimen (specimen) 11/02/2020 3:52 AM EST 11/02/2020 4:01 AM EST Narrative Resulting Agency Comment Spec In Lab Noble Rodriguez MD HEMATOLOGY ORDERABLE S Performing Organization Address City/State/[facility] Co de Phone Number [facility] [place] [address] * (ABNORMAL) Hemogram (11/02/2020 3:52 AM EST) White Blood Cell 7.0 4.0 - 9.5 x10(3)/[facility] Red Blood Cell 3.39(L) 4.58 - 5.54 x10(6)/[facility] Hemoglobin 10.3(L) 13.7 - 16.5 gm/dL [facility] Hematocrit 30.4(L) 40.5 - 48.5 % [facility] Mean Cell Volume 89.7 82.9 - 93.1 fL [facility] Mean Cell Hemoglobin 30.4 27.5 - 32.1 pg [facility] Mean Cell Hemoglobin Concentration 33.9 32.0 - 35.7 gm/dL [facility] Platelet 188 145 - 357 x10(3)/mc L [facility] RDW Standard Deviation 39.9 36.0 - 45.0 fL [facility] RDW coefficient of variation 12.2 11.4 - 13.8 % [facility] Mean Platelet Volume 10.6 7.6 - 12.9 fL [facility] NRBC% auto 0.0 % [facility] NRBC Absolute 0.000 0.000 - 0.000 x10(3)/mc L [facility] Blood specimen (specimen) 11/02/2020 3:52 AM EST 11/02/2020 4:01 AM EST Narrative Resulting Agency Comment Spec In Lab Noble Rodriguez MD [place] [address] * Phosphorus (11/02/2020 3:52 AM EST) Phosphorus 4.0 2.5 - 4.5 mg/dL [facility] Blood specimen (specimen) 11/02/2020 3:52 AM EST 11/02/2020 4:01 AM EST Narrative Resulting Agency Comment Spec In Lab Radha Bolden MD CHEMISTRY ORDERABLES [facility] [place] [address] * Magnesium (11/02/2020 3:52 AM EST) Magnesium 0.82 0.69 - 1.07 mmol/L [facility] Blood specimen (specimen) 11/02/2020 3:52 AM EST 11/02/2020 4:01 AM EST Narrative Resulting Agency Comment Spec In Lab Radha Bolden MD CHEMISTRY ORDERABLES [facility] [address] * (ABNORMAL) Basic Metabolic Panel (non-fasting) (11/02/2020 3:52 AM EST) Glucose 89 65 - 199 mg/dL [facility] Comment:Diabetes: >=200 mg/d L plus symptoms Blood Urea Nitrogen 24(H) 10 - 20 mg/dL [facility] Creatinine 0.83 0.80 - 1.50 mg/dL [facility] Sodium 136 135 - 145 mmol/L [facility] Potassium 4.4 3.5 - 5.0 mmol/L [facility] Comment: Please note: ??Patients with WBC >100,000 may have falsely elevated Potassium levels. ??For accurate Potassium quantification in these patients send serum separator tube (gold top) for subsequent determinations. ??Contact the Clinical Chemistry Laboratory if there are any questions. Chloride 103 98 - 107 mmol/L [facility] Carbon Dioxide 21(L) 22 - 31 mmol/L [facility] Anion Gap 12 5 - 15 mmol/L [facility] Calcium 8.2(L) 8.5 - 10.5 mg/dL [facility] Est Glomerular Filtration Rate 100 >=60 mL/min/1. 73 m?? [facility] Comment: This patient? s estimated glomerular filtration rate (eGFR) is between 100 mL/min/1.73 m2 (patients with less muscle mass per kg body weight) and 116 mL/min/1.73 m2 (patients with more muscle mass per kg body weight) as determined by the CKD-EPI equation. Assessment of eGFR is not appropriate when creatinine concentrations are rapidly changing. For clinical decisions where creatinine clearance will affect therapy, a 24-hour urine creatinine clearance may be advised. Assignment of CKD stage 1 ? 5 for patients with an eGFR near the transition point between stages may be based on clinical assessment of muscle mass and symptoms in addition to eGFR. Blood specimen (specimen) 11/02/2020 3:52 AM EST 11/02/2020 4:01 AM EST Narrative Resulting Agency Comment Spec In Lab Radha Bolden MD CHEMISTRY ORDERABLES [facility] [place] [address] * XR Abdomen 1 view (Generic) (11/01/2020 3:59 PM EST) Anatomical Region Laterality Modality Abdomen N/A Digital Radiogra phy Impressions 11/01/2020 4:03 PM EST Dobbhoff catheter, as above. Thank you for letting us participate in the care of this patient. For questions regarding this report, please contact the number below. ? Narrative 11/01/2020 4:03 PM EST EXAMINATION: XR ABDOMEN 1 VIEW (GENERIC) CLINICAL HISTORY: s/p Dobbhoff placement to verify position 55-year-old male TECHNIQUE: AP portable frontal view of the abdomen/lower chest. COMPARISON: Abdominal views 10/27/2020. CT chest abdomen pelvis of 10/26/2020. FINDINGS: Dobbhoff type catheter tube with wire in place extends below the hemidiaphragms, crosses midline from left to right with tip overlying the expected location of distal stomach/proximal duodenum. Mild atelectatic changes of the lung bases. Residual contrast within colonic loops. Procedure Note Killian Bob MD - 11/01/2020 EXAMINATION: XR ABDOMEN 1 VIEW (GENERIC) CLINICAL HISTORY: s/p Dobbhoff placement to verify position 55-year-old male TECHNIQUE: AP portable frontal view of the abdomen/lower chest. COMPARISON: Abdominal views 10/27/2020. CT chest abdomen pelvis of 10/26/2020. FINDINGS: Dobbhoff type catheter tube with wire in place extends below thehemidiaphragms, crosses midline from left to right with tip overlying the expectedlocation of distal stomach/proximal duodenum. Mild atelectatic changes of the lung bases. Residual contrast withincolonic loops. IMPRESSION Dobbhoff catheter, as above. Thank you for letting us participate in the care of this patient. Forquestions regarding this report, please contact the number below. Gaurav Shoemaker MD IMG DX ORDERABLES * XR Chest One View (11/01/2020 3:59 PM EST) Anatomical Region Laterality Modality Chest N/A Digital Radiogra phy Impressions 11/01/2020 4:19 PM EST Left retrocardiac opacity may represent atelectasis versus aspiration pneumonitis. I have personally reviewed the image(s) and the resident's interpretation and agree with the findings, Lili Burgos MD at 11/01/2020 4:19 PM Thank you for letting us participate in the care of this patient. For questions regarding this report, please contact the number below. ? Narrative 11/01/2020 4:19 PM EST EXAMINATION: XR CHEST ONE VIEW CLINICAL HISTORY: febrile, tachycardic, TECHNIQUE: 1 view of the chest COMPARISON: Chest radiograph 10/30/2020 FINDINGS: Enteric tube seen along the course of the esophagus with distal tip outside the [id number] beyond the GE junction. Partially visualized cervical fusion hardware and skin sharla. Left retrocardiac opacity partially obscures the medial left hemidiaphragm, with slight left hemidiaphragm elevation. Linear atelectasis in the left midlung. No pleural effusion or pneumothorax. The cardiomediastinal silhouette and pulmonary vascular markings are within normal limits. No acute osseous abnormality. Contrast is seen in visualized bowel loops related to previous day barium swallow. Procedure Note Lili Burgos MD - 11/01/2020 EXAMINATION: XR CHEST ONE VIEW CLINICAL HISTORY: febrile, tachycardic, TECHNIQUE: 1 view of the chest COMPARISON: Chest radiograph 10/30/2020 FINDINGS: Enteric tube seen along the course of the esophagus with distal tipoutside the [id number] beyond the GE junction. Partially visualized cervicalfusion hardware and skin sharla. Left retrocardiac opacity partially obscures the medial lefthemidiaphragm, with slight left hemidiaphragm elevation. Linear atelectasis in the leftmidlung. No pleural effusion or pneumothorax. The cardiomediastinal silhouette andpulmonary vascular markings are within normal limits. No acute osseousabnormality. Contrast is seen in visualized bowel loops related to previous daybarium swallow. IMPRESSION Left retrocardiac opacity may represent atelectasis versus aspiration pneumonitis. I have personally reviewed the image(s) and the resident's interpretationand agree with the findings, Lili Burgos MD at 11/01/2020 4:19 PM Thank you for letting us participate in the care of this patient. Forquestions regarding this report, please contact the number below. Gaurav Shoemaker MD IMG DX ORDERABLES * (ABNORMAL) Urinalysis Microscopic Exam (11/01/2020 10:30 AM EST) RBC, Urine 12(H) 0 - 3 /HPF [facility] WBC, Urine 4(H) 0 - 3 /HPF [facility] Bacteria, Urine Few(A) None /HPF [facility] Transitional Epithelial Cells, Urine <1 <=1 /HPF [facility] Uric Acid Crystal, Urine Occasiona l(A) None /HPF [facility] Urine specimen obtained via indwelling urinary catheter (specimen) 11/01/2020 10:30 AM EST 11/01/2020 10:39 AM EST Narrative Resulting Agency Comment Spec In Lab Bhumi Corley MD URINE ORDERABLES [facility] [place] [address] * (ABNORMAL) Urinalysis with reflex Culture (11/01/2020 10:30 AM EST) Glucose, Urine Dipstick Negative Negative mg/dL [facility] Protein, Urine Dipstick 30(A) Negative mg/dL [facility] Bilirubin, Urine Dipstick Negative Negative mg/dL [facility] Comment: Clinical correlation required for positive Urine Bilirubin results as false positive may occur with some drugs and drug related products. If a false positive is suspected a serum total bilirubin should be considered if clinically indicated. Urobilinogen, Urine Dipstick Normal Normal mg/dL [facility] pH, Urn (dipstick) 6.0 5.0 - 8.0 [facility] Blood, Urine Dipstick Moderate(A) Negative mg/dL [facility] Ketone, Urine Dipstick 15(A) Negative mg/dL [facility] Nitrite, Urine Dipstick Negative Negative [facility] Leukocytes, Urine Dipstick Negative Negative [facility] Appearance, Urine Dipstick Clear Clear [facility] Specific [place] Urine Automated >=1.030(A) 1.006 - 1.030 [facility] Color, Urine Dipstick Yellow Yellow [facility] Reflex to Culture No [facility] Urine specimen obtained via indwelling urinary catheter (specimen) 11/01/2020 10:30 AM EST 11/01/2020 10:39 AM EST Narrative Resulting Agency Comment Spec In Lab Gaurav Shoemaker MD URINE ORDERABLES Performing Organization Address [facility] de Phone Number [facility] [place] [address] * Blood culture (11/01/2020 5:56 AM EST) Blood Culture No growth at 5 days. [facility] Blood specimen (specimen) 11/01/2020 5:56 AM EST 11/01/2020 7:38 AM EST Narrative Resulting Agency Comment Spec In Lab Gaurav Shoemaker MD MICROBIOLOGY - BLOOD ORDERABLES Performing Organization Address [facility] de Phone Number [facility] [place] [address] * (ABNORMAL) Comprehensive metabolic panel (non-fasting) (11/01/2020 5:47 AM EST) Glucose Not Perf 65 - 199 [facility] Comment: Duplicate order Diabetes: >=200 mg/dL plus symptoms Blood Urea Nitrogen Not Perf 10 - 20 [facility] Comment:Duplicate order Creatinine Not Perf 0.80 - 1.50 [facility] Comment:Duplicate order Sodium Not Perf 135 - 145 [facility] Comment:Duplicate order Potassium Not Perf 3.5 - 5.0 [facility] Comment: Duplicate order Please note: ??Patients with WBC >100,000 may have falsely elevated Potassium levels. ??For accurate Potassium quantification in these patients send serum separator tube (gold top) for subsequent determinations. ??Contact the Clinical Chemistry Laboratory if there are any questions. Chloride Not Perf 98 - 107 [facility] Comment:Duplicate order Carbon Dioxide Not Perf 22 - 31 [facility] Comment:Duplicate order Anion Gap Not Calculated 5 - 15 mmol/L [facility] Comment:Duplicate order Calcium Not Perf 8.5 - 10.5 [facility] Comment:Duplicate order Protein, Total 5.6(L) 6.1 - 8.0 gm/dL [facility] Albumin 2.8(L) 3.2 - 5.2 gm/dL [facility] Aspartate Aminotransferase 36 0 - 39 unit/L [facility] Alanine Aminotransferase 32 0 - 55 unit/L [facility] Alkaline Phosphatase 58 40 - 130 unit/L [facility] Bilirubin, Total 0.4 0.2 - 1.3 mg/dL [facility] Est Glomerular Filtration Rate Not Calculated >=60 [facility] Comment:Duplicate order Blood specimen (specimen) 11/01/2020 5:47 AM EST 11/01/2020 6:06 AM EST Narrative Resulting Agency Comment Spec In Lab Gaurav Shoemaker MD CHEMISTRY ORDERABLES [facility] [place] [address] * Differential, Automated (11/01/2020 5:47 AM EST) Neutrophil % 67.7 % [facility] Neutrophil Absolute 4.41 1.70 - 6.10 x10(3)/[facility] Lymph % 19.1 % [facility] Lymphocytes Abs 1.2 0.9 - 3.2 x10(3)/[facility] Monocyte % 12.6 % [facility] Monocyte Abs 0.8 0.3 - 0.9 x10(3)/[facility] Eos % 0.2 % [facility] Eosinophils Abs 0.0 0.0 - 0.4 x10(3)/[facility] Basophil % 0.2 % [facility] Baso Absolute 0.0 0.0 - 0.1 x10(3)/[facility] Immature Gran % 0.20 % [facility] Comment: Immature granulocytes(IG's)percentage and absolute count will include metamyelocytes, myelocytes, and promyelocytes. Blood smears from CBCs yielding IG's will be scanned manually for concordance. If this scan disagrees with the automated IG or if promyelocytes are noted, a manual differential will be performed. Immature Gran Absolute 0.01 0.00 - 0.04 x10(3)/[facility] Blood specimen (specimen) 11/01/2020 5:47 AM EST 11/01/2020 6:04 AM EST Narrative Resulting Agency Comment Spec In Lab Bhumi Corley MD HEMATOLOGY ORDERABLE S Performing Organization Address City/State/[facility] Co de Phone Number [facility] [place] [address] * (ABNORMAL) Hemogram (11/01/2020 5:47 AM EST) White Blood Cell 6.5 4.0 - 9.5 x10(3)/mc L [facility] Red Blood Cell 3.43(L) 4.58 - 5.54 x10(6)/ L [facility] Hemoglobin 10.6(L) 13.7 - 16.5 gm/dL [facility] Hematocrit 30.9(L) 40.5 - 48.5 % [facility] Mean Cell Volume 90.1 82.9 - 93.1 fL [facility] Mean Cell Hemoglobin 30.9 27.5 - 32.1 pg [facility] Mean Cell Hemoglobin Concentration 34.3 32.0 - 35.7 gm/dL [facility] Platelet 185 145 - 357 x10(3)/ L [facility] RDW Standard Deviation 39.7 36.0 - 45.0 fL [facility] RDW coefficient of variation 12.2 11.4 - 13.8 % [facility] Mean Platelet Volume 10.9 7.6 - 12.9 fL [facility] NRBC% auto 0.0 % [facility] NRBC Absolute 0.000 0.000 - 0.000 x10(3)/mc L [facility] Blood specimen (specimen) 11/01/2020 5:47 AM EST 11/01/2020 6:04 AM EST Narrative Resulting Agency Comment Spec In Lab Bhumi Corley MD HEMATOLOGY ORDERABLE S [facility] [place] [address] * (ABNORMAL) Basic Metabolic Panel (non-fasting) (11/01/2020 5:47 AM EST) Glucose 92 65 - 199 mg/dL [facility] Comment:Diabetes: >=200 mg/d L plus symptoms Blood Urea Nitrogen 19 10 - 20 mg/dL [facility] Creatinine 1.13 0.80 - 1.50 mg/dL [facility] Sodium 132(L) 135 - 145 mmol/L [facility] Potassium 3.7 3.5 - 5.0 mmol/L [facility] Comment: Please note: ??Patients with WBC >100,000 may have falsely elevated Potassium levels. ??For accurate Potassium quantification in these patients send serum separator tube (gold top) for subsequent determinations. ??Contact the Clinical Chemistry Laboratory if there are any questions. Chloride 101 98 - 107 mmol/L [facility] Carbon Dioxide 21(L) 22 - 31 mmol/L [facility] Anion Gap 10 5 - 15 mmol/L [facility] Calcium 8.0(L) 8.5 - 10.5 mg/dL [facility] Est Glomerular Filtration Rate 74 >=60 mL/min/1. 73 m?? [facility] Comment: This patient? s estimated glomerular filtration rate (eGFR) is between 74 mL/min/1.73 m2 (patients with less muscle mass per kg body weight) and 86 mL/min/1.73 m2 (patients with more muscle mass per kg body weight) as determined by the CKD-EPI equation. Assessment of eGFR is not appropriate when creatinine concentrations are rapidly changing. For clinical decisions where creatinine clearance will affect therapy, a 24-hour urine creatinine clearance may be advised. Assignment of CKD stage 1 ? 5 for patients with an eGFR near the transition point between stages may be based on clinical assessment of muscle mass and symptoms in addition to eGFR. Blood specimen (specimen) 11/01/2020 5:47 AM EST 11/01/2020 6:04 AM EST Narrative Resulting Agency Comment Spec In Lab Gaurav Shoemaker MD CHEMISTRY ORDERABLES Performing Organization Address [facility] Co de Phone Number [facility] [place] [address] * (ABNORMAL) Blood culture (11/01/2020 5:47 AM EST) Blood Culture Coagulase negative Staphylococcus species detected by PCR Interpretation of the importance of skin daphne such as Coagulase Negative Staph, Viridans Strep, Corynebacteria and other Gram Positive organisms from a single Blood Culture set requires clinical correlation. (A) [facility] Gram Stain Aerobic Growth detected in aerobic bottle. Gram Positive Cocci in clusters seen (A) [facility] Organism Coagulase negative Staphylococcus species(A) [facility] Organism Gram Positive Cocci in clusters(A) [facility] Blood specimen (specimen) STRUCTURE OF RIGHT HAND / Unknown 11/01/2020 5:47 AM EST 11/01/2020 7:40 AM EST Narrative Resulting Agency Comment Spec In Lab Gaurav Shoemaker MD MICROBIOLOGY - BLOOD ORDERABLES Performing Organization Address [facility] Co de Phone Number [facility] [place] [address] * POCT Glucose (11/01/2020 5:23 AM EST) Glucose, POC 105 65 - 199 mg/dL [facility] Comment: Supplemental ranges: <140 mg/dL before meals <180 mg/dL all other times of the day Blood specimen (specimen) 11/01/2020 5:23 AM EST 11/01/2020 5:23 AM EST Gaurav Shoemaker MD POINT OF CARE TEST O RDERABLES Performing Organization Address City/[facility]/ZIP Co de Phone Number [facility] [place] [address] * Phosphorus (11/01/2020 3:55 AM EST) Phosphorus 2.9 2.5 - 4.5 mg/dL [facility] Blood specimen (specimen) 11/01/2020 3:55 AM EST 11/01/2020 4:23 AM EST Narrative Resulting Agency Comment Spec In Lab Radha Bolden MD CHEMISTRY ORDERABLES Performing Organization Address [facility]/ZIP Co de Phone Number [facility] [place] [address] * Magnesium (11/01/2020 3:55 AM EST) Magnesium 0.79 0.69 - 1.07 mmol/L [facility] Blood specimen (specimen) 11/01/2020 3:55 AM EST 11/01/2020 4:23 AM EST Narrative Resulting Agency Comment Spec In Lab Radha Bolden MD CHEMISTRY ORDERABLES Performing Organization Address [facility] Co de Phone Number [facility] [place] [address] * XR Fluoro Barium Swallow (Video Swallow Pharynx) (10/31/2020 3:34 PM EST) Anatomical Region Laterality Modality N/A Radio Fluoroscop y Impressions 10/31/2020 4:12 PM EST Abnormal modified barium swallow as above. Please see speech pathology report for further discussion. Thank you for letting us participate in the care of this patient. For questions regarding this report, please contact the number below. ? Electronically signed by: Lawrence Molina MD, [facility] ([phone]), at 10/31/2020 4:12 PM Narrative 10/31/2020 4:12 PM EST EXAMINATION: XR FLUORO BARIUM SWALLOW (VIDEO SWALLOW PHARYNX) CLINICAL HISTORY: Dysphagia from C6-7 dislocation TECHNIQUE: The examination was performed in conjunction with speech pathology. ??Varying consistencies of barium were administered under lateral fluoroscopic observation. Fluoro time: 2.2 minutes COMPARISON: None FINDINGS: The oral phase of swallowing is normal. There is normal elevation of the larynx and normal epiglottic inversion with swallowing. Trigger with thin is is post piriform sinuses. With larger volumes of thin as through a straw, there is penetration of the contrast that prematurely spilled to the piriform sinuses. Trigger just post vallecula with honey consistency. Soft solid trigger was post piriform sinuses. [place] trigger is post piriform sinuses. With nectar through a straw, the patient took in volume faster than the pharynx cleared with laryngeal penetration but no aspiration. No aspiration occurred with any consistency. Procedure Note Lawrence Molina MD - 10/31/2020 EXAMINATION: XR FLUORO BARIUM SWALLOW (VIDEO SWALLOW PHARYNX) CLINICAL HISTORY: Dysphagia from C6-7 dislocation TECHNIQUE: The examination was performed in conjunction with speech pathology.Varying consistencies of barium were administered under lateral fluoroscopic observation. Fluoro time: 2.2 minutes COMPARISON: None FINDINGS: The oral phase of swallowing is normal. There is normal elevation of the larynx and normal epiglottic inversionwith swallowing. Trigger with thin is is post piriform sinuses. With larger volumes of thinas through a straw, there is penetration of the contrast that prematurelyspilled to the piriform sinuses. Trigger just post vallecula with honey consistency. Soft solid trigger was post piriform sinuses. [place] trigger is post piriform sinuses. With nectar through a straw, the patient took in volume faster than thepharynx cleared with laryngeal penetration but no aspiration. No aspiration occurred with any consistency. IMPRESSION Abnormal modified barium swallow as above. Please see speech pathology report for further discussion. Thank you for letting us participate in the care of this patient. Forquestions regarding this report, please contact the number below. Electronically signed by: Lawrence Molina MD, [facility]([phone]), at 10/31/2020 4:12 PM Gaurav Shoemaker MD IMG FLUORO ORDERABLE S * Differential, Automated (10/31/2020 12:42 AM EST) Neutrophil % 68.8 % [facility] Neutrophil Absolute 5.30 1.70 - 6.10 x10(3)/[facility] Lymph % 18.7 % [facility] Lymphocytes Abs 1.4 0.9 - 3.2 x10(3)/[facility] Monocyte % 9.9 % [facility] Monocyte Abs 0.8 0.3 - 0.9 x10(3)/[facility] Eos % 2.0 % [facility] Eosinophils Abs 0.2 0.0 - 0.4 x10(3)/[facility] Basophil % 0.3 % [facility] Baso Absolute 0.0 0.0 - 0.1 x10(3)/[facility] Immature Gran % 0.30 % [facility] Comment: Immature granulocytes(IG's)percentage and absolute count will include metamyelocytes, myelocytes, and promyelocytes. Blood smears from CBCs yielding IG's will be scanned manually for concordance. If this scan disagrees with the automated IG or if promyelocytes are noted, a manual differential will be performed. Immature Gran Absolute 0.02 0.00 - 0.04 x10(3)/mcL [facility] Blood specimen (specimen) 10/31/2020 12:42 AM EST 10/31/2020 1:02 AM EST Narrative Resulting Agency Comment Spec In Lab Alex Oropeza MD HEMATOLOGY ORDERABLE S [facility] [place] [place] [address] * (ABNORMAL) Hemogram (10/31/2020 12:42 AM EST) White Blood Cell 7.7 4.0 - 9.5 x10(3)/[facility] Red Blood Cell 3.00(L) 4.58 - 5.54 x10(6)/[facility] Hemoglobin 9.4(L) 13.7 - 16.5 gm/dL [facility] Hematocrit 27.0(L) 40.5 - 48.5 % [facility] Mean Cell Volume 90.0 82.9 - 93.1 [facility] Mean Cell Hemoglobin 31.3 27.5 - 32.1 pg [facility] Mean Cell Hemoglobin Concentration 34.8 32.0 - 35.7 gm/dL [facility] Platelet 138(L) 145 - 357 x10(3)/[facility] RDW Standard Deviation 39.6 36.0 - 45.0 [facility] RDW coefficient of variation 12.1 11.4 - 13.8 % [facility] Mean Platelet Volume 11.7 7.6 - 12.9 [facility] NRBC% auto 0.0 % [facility] NRBC Absolute 0.000 0.000 - 0.000 x10(3)/[facility] Blood specimen (specimen) 10/31/2020 12:42 AM EST 10/31/2020 1:02 AM EST Narrative Resulting Agency Comment Spec In Lab Alex Oropeza MD HEMATOLOGY ORDERABLE S [facility] [address] * (ABNORMAL) Basic Metabolic Panel (non-fasting) (10/31/2020 12:42 AM EST) Glucose 97 65 - 199 mg/dL [facility] Comment:Diabetes: >=200 mg/d L plus symptoms Blood Urea Nitrogen 15 10 - 20 mg/dL [facility] Creatinine 0.78(L) 0.80 - 1.50 mg/dL [facility] Sodium 135 135 - 145 mmol/L [facility] Potassium 3.8 3.5 - 5.0 mmol/L [facility] Comment: Please note: ??Patients with WBC >100,000 may have falsely elevated Potassium levels. ??For accurate Potassium quantification in these patients send serum separator tube (gold top) for subsequent determinations. ??Contact the Clinical Chemistry Laboratory if there are any questions. Chloride 105 98 - 107 mmol/L [facility] Carbon Dioxide 24 22 - 31 mmol/L [facility] Anion Gap 6 5 - 15 mmol/L [facility] Calcium 7.5(L) 8.5 - 10.5 mg/dL [facility] Est Glomerular Filtration Rate 103 >=60 mL/min/1. 73 m?? [facility] Comment: This patient? s estimated glomerular filtration rate (eGFR) is between 103 mL/min/1.73 m2 (patients with less muscle mass per kg body weight) and 119 mL/min/1.73 m2 (patients with more muscle mass per kg body weight) as determined by the CKD-EPI equation. Assessment of eGFR is not appropriate when creatinine concentrations are rapidly changing. For clinical decisions where creatinine clearance will affect therapy, a 24-hour urine creatinine clearance may be advised. Assignment of CKD stage 1 ? 5 for patients with an eGFR near the transition point between stages may be based on clinical assessment of muscle mass and symptoms in addition to eGFR. Blood specimen (specimen) 10/31/2020 12:42 AM EST 10/31/2020 1:02 AM EST Narrative Resulting Agency Comment Spec In Lab Radha Bolden MD CHEMISTRY ORDERABLES Performing Organization Address [facility] de Phone Number [facility] [place] [address] * (ABNORMAL) Phosphorus (10/31/2020 12:42 AM EST) Phosphorus 2.2(L) 2.5 - 4.5 mg/dL [facility] Blood specimen (specimen) 10/31/2020 12:42 AM EST 10/31/2020 1:02 AM EST Narrative Resulting Agency Comment Spec In Lab Radha Bolden MD CHEMISTRY ORDERABLES Performing Organization Address [facility] de Phone Number [facility] [place] [address] * Magnesium (10/31/2020 12:42 AM EST) Magnesium 0.72 0.69 - 1.07 mmol/L [facility] Blood specimen (specimen) 10/31/2020 12:42 AM EST 10/31/2020 1:02 AM EST Narrative Resulting Agency Comment Spec In Lab Radha Bolden MD CHEMISTRY ORDERABLES Performing Organization Address [facility] de Phone Number [facility] [place] [address] * POCT Glucose (10/30/2020 7:40 PM EST) Glucose, POC 95 65 - 199 mg/dL [facility] Comment: Supplemental ranges: <140 mg/dL before meals <180 mg/dL all other times of the day Blood specimen (specimen) 10/30/2020 7:40 PM EST 10/30/2020 7:40 PM EST Gaurav Shoemaker MD POINT OF CARE TEST O RDERABLES Performing Organization Address [facility] Co de Phone Number [facility] [address] * Electrolytes panel (10/30/2020 6:15 PM EST) Sodium 135 135 - 145 mmol/L [facility] Potassium 4.1 3.5 - 5.0 mmol/L [facility] Comment: Please note: ??Patients with WBC >100,000 may have falsely elevated Potassium levels. ??For accurate Potassium quantification in these patients send serum separator tube (gold top) for subsequent determinations. ??Contact the Clinical Chemistry Laboratory if there are any questions. Chloride 104 98 - 107 mmol/L [facility] Carbon Dioxide 24 22 - 31 mmol/L [facility] Anion Gap 7 5 - 15 mmol/L [facility] Blood specimen (specimen) 10/30/2020 6:15 PM EST 10/30/2020 6:24 PM EST Narrative Resulting Agency Comment Spec In Lab Gaurav Shoemaker MD CHEMISTRY ORDERABLES Performing Organization Address [facility] Co de Phone Number [facility] [place] [address] * Osmolality (10/30/2020 4:55 PM EST) Osmolality 281 275 - 295 mOsm/kg [facility] Blood specimen (specimen) 10/30/2020 4:55 PM EST 10/30/2020 5:32 PM EST Narrative Resulting Agency Comment Spec In Lab Gaurav Shoemaker MD CHEMISTRY ORDERABLES Performing Organization Address [facility] Co de Phone Number [facility] [place] [address] * Osmolality, urine, random (10/30/2020 4:36 PM EST) Osmolality, Urine 991 50 - 1,200 mOsm/kg [facility] Urine specimen (specimen) 10/30/2020 4:36 PM EST 10/30/2020 5:49 PM EST Narrative Resulting Agency Comment Spec In Lab Gaurav Shoemaker MD URINE ORDERABLES Performing Organization Address [facility] Co de Phone Number [facility] [place] [address] * Electrolytes, urine, random (10/30/2020 4:36 PM EST) Sodium, Urine 60 mmol/L [facility] Potassium, Urine 43 mmol/L [facility] Chloride, Urine 48 mmol/L [facility] Urine specimen (specimen) 10/30/2020 4:36 PM EST 10/30/2020 5:49 PM EST Narrative Resulting Agency Comment Spec In Lab Gaurav Shoemaker MD URINE ORDERABLES Performing Organization Address [facility] de Phone Number [facility] [place] [address] * XR Chest One View (10/30/2020 4:35 PM EST) Anatomical Region Laterality Modality Chest N/A Digital Radiogra phy Impressions 10/30/2020 5:22 PM EST 1. ??No acute cardiopulmonary process. 2. ??Interval resolution of pulmonary vascular congestion. 3. ??No pleural effusions. Thank you for letting us participate in the care of this patient. For questions regarding this report, please contact the number below. ? Electronically signed by: Rajinder Lam MD, [facility] ([phone]), at 10/30/2020 5:22 PM Narrative 10/30/2020 5:22 PM EST EXAMINATION: XR CHEST ONE VIEW CLINICAL HISTORY: dysphagia TECHNIQUE: 1 view of the chest COMPARISON: Chest radiograph 10/29/2020 FINDINGS: Partially visualized lower cervical/upper thoracic fusion hardware. Surgical skin sharla project over the lower cervical/upper thoracic spine. Interval removal of enteric tube. No focal consolidation. The pulmonary vascular markings are normal, consistent with interval resolution of congestion. No pneumothorax. No pleural effusions. Normal size of the cardiomediastinal silhouette and bilateral idania. No acute osseous findings. Procedure Note Rajinder Lam MD - 10/30/2020 EXAMINATION: XR CHEST ONE VIEW CLINICAL HISTORY: dysphagia TECHNIQUE: 1 view of the chest COMPARISON: Chest radiograph 10/29/2020 FINDINGS: Partially visualized lower cervical/upper thoracic fusion hardware.Surgical skin sharla project over the lower cervical/upper thoracic spine. Interval removal of enteric tube. No focal consolidation. The pulmonary vascular markings are normal,consistent with interval resolution of congestion. No pneumothorax. No pleuraleffusions. Normal size of the cardiomediastinal silhouette and bilateral idania. Noacute osseous findings. IMPRESSION 1. No acute cardiopulmonary process. 2. Interval resolution of pulmonary vascular congestion. 3. No pleural effusions. Thank you for letting us participate in the care of this patient. Forquestions regarding this report, please contact the number below. Gaurav Shoemaker MD IMG DX ORDERABLES * (ABNORMAL) BLOOD GAS 2 ARTERIAL (10/30/2020 3:19 PM EST) pH, Arterial 7.43 7.35 - 7.45 [facility] PCO2, Arterial 36 35 - 45 mmHg [facility] PO2, Arterial 64(L) 85 - 104 mmHg [facility] Bicarbonate, Arterial 23.4 20.0 - 26.0 mmol/L [facility] Base Excess, Arterial -0.8 -3.0 - 3.0 mmol/L [facility] Hgb Blood Gas 10.8(L) 13.7 - 16.5 gm/dL [facility] Oxyhemoglobin, Arterial 91.0(L) 94.0 - 97.0 % [facility] Carboxyhemoglob in, Arterial 0.3 % [facility] Comment: Nonsmokers: 0.5-1.5% COHB Smokers: Variable, but usually less than 10% Toxic: 20-30% COHB Lethal: Greater than 60% COHB Methemoglobin, Arterial 0.6 <=1.5 % [facility] Na Whole Blood 132(L) 135 - 145 mmol/L [facility] K Whole Blood 3.5 3.5 - 5.0 mmol/L [facility] Comment: Please note: Patients with WBC >100,000 may have falsely elevated Potassium levels. Contact the Clinical Chemistry Laboratory if there are any questions. ICa Whole Blood 1.11(L) 1.15 - 1.33 mmol/L [facility] Comment: Note: ??Total bilirubin higher than 20 mg/dL may lead to falsely low ionized calcium. CL Whole Blood 103 98 - 107 mmol/L [facility] Gluc Whole Bld 121 65 - 199 mg/dL [facility] Comment:Diabetes: >=200 mg/d L plus symptoms. Lactate WB 0.8 0.5 - 2.2 mmol/L [facility] FIO2 Art 21 % [facility] PF Ratio Art 305 [facility] Blood specimen (specimen) 10/30/2020 3:19 PM EST 10/30/2020 3:19 PM EST Gaurav Shoemaker MD POINT OF CARE TEST O RDERABLES [facility] [place] [address] * (ABNORMAL) CK (10/30/2020 1:15 PM EST) Creatine Kinase 333(H) 0 - 200 unit/L [facility] Blood specimen (specimen) 10/30/2020 1:15 PM EST 10/30/2020 1:28 PM EST Narrative Resulting Agency Comment Spec In Lab Gaurav Shoemaker MD CHEMISTRY ORDERABLES [facility] [place] [address] * (ABNORMAL) Basic Metabolic Panel (non-fasting) (10/30/2020 1:15 PM EST) Glucose 118 65 - 199 mg/dL [facility] Comment:Diabetes: >=200 mg/d L plus symptoms Blood Urea Nitrogen 17 10 - 20 mg/dL [facility] Creatinine 0.81 0.80 - 1.50 mg/dL [facility] Sodium 133(L) 135 - 145 mmol/L [facility] Potassium 3.7 3.5 - 5.0 mmol/L [facility] Comment: Please note: ??Patients with WBC >100,000 may have falsely elevated Potassium levels. ??For accurate Potassium quantification in these patients send serum separator tube (gold top) for subsequent determinations. ??Contact the Clinical Chemistry Laboratory if there are any questions. Chloride 103 98 - 107 mmol/L [facility] Carbon Dioxide 24 22 - 31 mmol/L [facility] Anion Gap 6 5 - 15 mmol/L [facility] Calcium 7.0(L) 8.5 - 10.5 mg/dL [facility] Est Glomerular Filtration Rate 101 >=60 mL/min/1. 73 m?? [facility] Comment: This patient? s estimated glomerular filtration rate (eGFR) is between 101 mL/min/1.73 m2 (patients with less muscle mass per kg body weight) and 118 mL/min/1.73 m2 (patients with more muscle mass per kg body weight) as determined by the CKD-EPI equation. Assessment of eGFR is not appropriate when creatinine concentrations are rapidly changing. For clinical decisions where creatinine clearance will affect therapy, a 24-hour urine creatinine clearance may be advised. Assignment of CKD stage 1 ? 5 for patients with an eGFR near the transition point between stages may be based on clinical assessment of muscle mass and symptoms in addition to eGFR. Blood specimen (specimen) 10/30/2020 1:15 PM EST 10/30/2020 1:28 PM EST Narrative Resulting Agency Comment Spec In Lab Gaurav Shoemaker MD CHEMISTRY ORDERABLES [facility] [place] [address] * (ABNORMAL) Differential, Automated (10/30/2020 1:05 AM EST) Neutrophil % 74.4 % [facility] Neutrophil Absolute 7.02(H) 1.70 - 6.10 x10(3)/mc L [facility] Lymph % 13.4 % [facility] Lymphocytes Abs 1.3 0.9 - 3.2 x10(3)/mc L [facility] Monocyte % 11.5 % [facility] Monocyte Abs 1.1(H) 0.3 - 0.9 x10(3)/mc L [facility] Eos % 0.2 % [facility] Eosinophils Abs 0.0 0.0 - 0.4 x10(3)/ L [facility] Basophil % 0.2 % [facility] Baso Absolute 0.0 0.0 - 0.1 x10(3)/mc L [facility] Immature Gran % 0.30 % [facility] Comment: Immature granulocytes(IG's)percentage and absolute count will include metamyelocytes, myelocytes, and promyelocytes. Blood smears from CBCs yielding IG's will be scanned manually for concordance. If this scan disagrees with the automated IG or if promyelocytes are noted, a manual differential will be performed. Immature Gran Absolute 0.03 0.00 - 0.04 x10(3)/mc L [facility] Blood specimen (specimen) 10/30/2020 1:05 AM EST 10/30/2020 1:24 AM EST Narrative Resulting Agency Comment Spec In Lab Alex Oropeza MD HEMATOLOGY ORDERABLE S Performing Organization Address City/[facility]/ZIP Co de Phone Number [facility] [place] [address] * (ABNORMAL) Hemogram (10/30/2020 1:05 AM EST) White Blood Cell 9.4 4.0 - 9.5 x10(3)/mc L [facility] Red Blood Cell 3.38(L) 4.58 - 5.54 x10(6)/mc L [facility] Hemoglobin 10.3(L) 13.7 - 16.5 gm/dL [facility] Hematocrit 30.2(L) 40.5 - 48.5 % [facility] Mean Cell Volume 89.3 82.9 - 93.1 [facility] Mean Cell Hemoglobin 30.5 27.5 - 32.1 pg [facility] Mean Cell Hemoglobin Concentration 34.1 32.0 - 35.7 gm/dL [facility] Platelet 159 145 - 357 x10(3)/mc L [facility] RDW Standard Deviation 39.8 36.0 - 45.0 [facility] RDW coefficient of variation 12.2 11.4 - 13.8 % [facility] Mean Platelet Volume 11.6 7.6 - 12.9 [facility] NRBC% auto 0.0 % [facility] NRBC Absolute 0.000 0.000 - 0.000 x10(3)/ L [facility] Blood specimen (specimen) 10/30/2020 1:05 AM EST 10/30/2020 1:24 AM EST Narrative Resulting Agency Comment Spec In Lab Alex Oropeza MD HEMATOLOGY ORDERABLE S [facility] [place] [address] * (ABNORMAL) Basic Metabolic Panel (non-fasting) (10/30/2020 1:05 AM EST) Glucose 108 65 - 199 mg/dL [facility] Comment:Diabetes: >=200 mg/d L plus symptoms Blood Urea Nitrogen 15 10 - 20 mg/dL [facility] Creatinine 0.87 0.80 - 1.50 mg/dL [facility] Sodium 136 135 - 145 mmol/L [facility] Potassium 3.7 3.5 - 5.0 mmol/L [facility] Comment: Please note: ??Patients with WBC >100,000 may have falsely elevated Potassium levels. ??For accurate Potassium quantification in these patients send serum separator tube (gold top) for subsequent determinations. ??Contact the Clinical Chemistry Laboratory if there are any questions. Chloride 105 98 - 107 mmol/L [facility] Carbon Dioxide 24 22 - 31 mmol/L [facility] Anion Gap 7 5 - 15 mmol/L [facility] Calcium 7.5(L) 8.5 - 10.5 mg/dL [facility] Est Glomerular Filtration Rate 99 >=60 mL/min/1. 73 m?? [facility] Comment: This patient? s estimated glomerular filtration rate (eGFR) is between 99 mL/min/1.73 m2 (patients with less muscle mass per kg body weight) and 114 mL/min/1.73 m2 (patients with more muscle mass per kg body weight) as determined by the CKD-EPI equation. Assessment of eGFR is not appropriate when creatinine concentrations are rapidly changing. For clinical decisions where creatinine clearance will affect therapy, a 24-hour urine creatinine clearance may be advised. Assignment of CKD stage 1 ? 5 for patients with an eGFR near the transition point between stages may be based on clinical assessment of muscle mass and symptoms in addition to eGFR. Blood specimen (specimen) 10/30/2020 1:05 AM EST 10/30/2020 1:24 AM EST Narrative Resulting Agency Comment Spec In Lab Radha Bolden MD CHEMISTRY ORDERABLES Performing Organization Address City/[facility]/ZIP Co de Phone Number [facility] [place] [address] * (ABNORMAL) Phosphorus (10/30/2020 1:05 AM EST) Phosphorus 1.8(L) 2.5 - 4.5 mg/dL [facility] Blood specimen (specimen) 10/30/2020 1:05 AM EST 10/30/2020 1:24 AM EST Narrative Resulting Agency Comment Spec In Lab Radha Bolden MD CHEMISTRY ORDERABLES Performing Organization Address [facility] Co de Phone Number [facility] [place] [address] * Magnesium (10/30/2020 1:05 AM EST) Magnesium 0.77 0.69 - 1.07 mmol/L [facility] Blood specimen (specimen) 10/30/2020 1:05 AM EST 10/30/2020 1:24 AM EST Narrative Resulting Agency Comment Spec In Lab Radha Bolden MD CHEMISTRY ORDERABLES Performing Organization Address [facility]/ZIP Co de Phone Number [facility] [place] [address] * (ABNORMAL) Phosphorus (10/29/2020 12:18 PM EST) Phosphorus 1.9(L) 2.5 - 4.5 mg/dL [facility] Blood specimen (specimen) 10/29/2020 12:18 PM EST 10/29/2020 12:36 PM EST Narrative Resulting Agency Comment Spec In Lab Adrienne Medellin MD CHEMISTRY ORDERABLES Performing Organization Address City/[facility]/ZIP Co de Phone Number [facility] [place] [address] * (ABNORMAL) Urinalysis Microscopic Exam (10/29/2020 12:03 PM EST) RBC, Urine 3 0 - 3 /HPF [facility] WBC, Urine 6(H) 0 - 3 /HPF [facility] Bacteria, Urine Rare(A) None /HPF [facility] Squamous Epithelial Cells Raw Data, Urine 4 <=4 /HPF [facility] Renal Epithelial Cells, Urine 1(H) <=0 /HPF [facility] Comment: Interpret results with caution, microscopic results are from suboptimal specimen volume Hyaline Casts, Urine 4(H) 0 - 2 /LPF [facility] Urine specimen obtained via indwelling urinary catheter (specimen) 10/29/2020 12:03 PM EST 10/29/2020 12:37 PM EST Narrative Resulting Agency Comment Spec In Lab Neida Omalley MD URINE ORDERABLES Performing Organization Address City/State/[facility] Co de Phone Number [facility] [place] [address] * (ABNORMAL) Urinalysis with reflex Culture (10/29/2020 12:03 PM EST) Glucose, Urine Dipstick Negative Negative mg/dL [facility] Protein, Urine Dipstick Trace(A) Negative mg/dL [facility] Bilirubin, Urine Dipstick Negative Negative mg/dL [facility] Comment: Clinical correlation required for positive Urine Bilirubin results as false positive may occur with some drugs and drug related products. If a false positive is suspected a serum total bilirubin should be considered if clinically indicated. Urobilinogen, Urine Dipstick Normal Normal mg/dL [facility] pH, Urn (dipstick) 6.0 5.0 - 8.0 [facility] Blood, Urine Dipstick Trace(A) Negative mg/dL [facility] Ketone, Urine Dipstick 40(A) Negative mg/dL [facility] Nitrite, Urine Dipstick Negative Negative [facility] Leukocytes, Urine Dipstick Negative Negative [facility] Appearance, Urine Dipstick Clear Clear [facility] Specific [place] Urine Automated >=1.030(A) 1.006 - 1.030 [facility] Color, Urine Dipstick Yellow Yellow [facility] Reflex to Culture No [facility] Urine specimen obtained via indwelling urinary catheter (specimen) 10/29/2020 12:03 PM EST 10/29/2020 12:37 PM EST Narrative Resulting Agency Comment Spec In Lab Adrienne Medellin MD URINE ORDERABLES Performing Organization Address [facility] Co de Phone Number [facility] [place] [address] * Blood culture (10/29/2020 6:10 AM EST) Blood Culture No growth at 5 days. [facility] Blood specimen (specimen) STRUCTURE OF RIGHT HAND / Unknown 10/29/2020 6:10 AM EST 10/29/2020 6:38 AM EST Narrative Resulting Agency Comment Spec In Lab Adrienne Medellin MD MICROBIOLOGY - BLOOD ORDERABLES Performing Organization Address [facility] Co de Phone Number [facility] [place] [address] * Blood culture (10/29/2020 6:10 AM EST) Blood Culture No growth at 5 days. [facility] Blood specimen (specimen) STRUCTURE OF LEFT UPPER LIMB / Unknown 10/29/2020 6:10 AM EST 10/29/2020 6:39 AM EST Narrative Resulting Agency Comment Spec In Lab Adrienne Medellin MD MICROBIOLOGY - BLOOD ORDERABLES Performing Organization Address [facility] Co de Phone Number [facility] [place] [address] * XR Chest One View (10/29/2020 6:07 AM EST) Anatomical Region Laterality Modality Chest N/A Digital Radiogra phy Impressions 10/29/2020 6:35 AM EST FINDINGS/IMPRESSION: Pulmonary vascular congestion and mild interstitial edema. Suspect new pleural effusions as well as LEFT lower lung atelectasis/opacities. Cardiomediastinal contours difficult to assess given patient rotation although do not appear to be overtly enlarged. Tube along the expected course of the esophagus courses off the [id number]-[id number]-vjoi inferiorly over the abdomen. Thank you for letting us participate in the care of this patient. For questions regarding this report, please contact the number below. ? Electronically signed by: Allen García MD, [facility] ([phone]), at 10/29/2020 6:35 AM Narrative 10/29/2020 6:35 AM EST EXAMINATION: XR CHEST ONE VIEW CLINICAL HISTORY: assess for PNA 2/2 potential aspiration TECHNIQUE: 1 view of the chest COMPARISON: 10/27/2020 Procedure Note Allen García MD - 10/29/2020 EXAMINATION: XR CHEST ONE VIEW CLINICAL HISTORY: assess for PNA 2/2 potential aspiration TECHNIQUE: 1 view of the chest COMPARISON: 10/27/2020 IMPRESSION FINDINGS/IMPRESSION: Pulmonary vascular congestion and mild interstitial edema. Suspect newpleural effusions as well as LEFT lower lung atelectasis/opacities.Cardiomediastinal contours difficult to assess given patient rotation although do not appearto be overtly enlarged. Tube along the expected course of the esophagus coursesoff the txyvi-[id number]-gels inferiorly over the abdomen. Thank you for letting us participate in the care of this patient. Forquestions regarding this report, please contact the number below. Adrienne Medellin MD IMG DX ORDERABLES * Differential, Automated (10/29/2020 12:50 AM EST) [facility] Neutrophil % 79.9 % [facility] Neutrophil Absolute 5.96 1.70 - 6.10 x10(3)/[facility] Lymph % 11.6 % [facility] Lymphocytes Abs 0.9 0.9 - 3.2 x10(3)/[facility] Monocyte % 8.0 % [facility] Monocyte Abs 0.6 0.3 - 0.9 x10(3)/[facility] Eos % 0.0 % [facility] Eosinophils Abs 0.0 0.0 - 0.4 x10(3)/[facility] Basophil % 0.1 % [facility] Baso Absolute 0.0 0.0 - 0.1 x10(3)/[facility] Immature Gran % 0.40 % [facility] Comment: Immature granulocytes(IG's)percentage and absolute count will include metamyelocytes, myelocytes, and promyelocytes. Blood smears from CBCs yielding IG's will be scanned manually for concordance. If this scan disagrees with the automated IG or if promyelocytes are noted, a manual differential will be performed. Immature Gran Absolute 0.03 0.00 - 0.04 x10(3)/[facility] Blood specimen (specimen) 10/29/2020 12:50 AM EST 10/29/2020 1:03 AM EST Narrative Resulting Agency Comment Spec In Lab Alex Oropeza MD HEMATOLOGY ORDERABLE S [facility] [place] [address] * (ABNORMAL) Hemogram (10/29/2020 12:50 AM EST) [facility] White Blood Cell 7.5 4.0 - 9.5 x10(3)/[facility] Red Blood Cell 3.64(L) 4.58 - 5.54 x10(6)/[facility] Hemoglobin 11.2(L) 13.7 - 16.5 gm/dL [facility] Hematocrit 32.9(L) 40.5 - 48.5 % [facility] Mean Cell Volume 90.4 82.9 - 93.1 [facility] Mean Cell Hemoglobin 30.8 27.5 - 32.1 pg [facility] Mean Cell Hemoglobin Concentration 34.0 32.0 - 35.7 gm/dL [facility] Platelet 146 145 - 357 x10(3)/[facility] RDW Standard Deviation 40.3 36.0 - 45.0 [facility] RDW coefficient of variation 12.2 11.4 - 13.8 % [facility] Mean Platelet Volume 11.4 7.6 - 12.9 [facility] NRBC% auto 0.0 % [facility] NRBC Absolute 0.000 0.000 - 0.000 x10(3)/[facility] Blood specimen (specimen) 10/29/2020 12:50 AM EST 10/29/2020 1:03 AM EST Narrative Resulting Agency Comment Spec In Lab Alex Oropeza MD HEMATOLOGY ORDERABLE S [facility] [address] * (ABNORMAL) Basic Metabolic Panel (non-fasting) (10/29/2020 12:50 AM EST) [facility] Glucose 96 65 - 199 mg/dL [facility] Comment:Diabetes: >=200 mg/d L plus symptoms Blood Urea Nitrogen 15 10 - 20 mg/dL [facility] Creatinine 0.93 0.80 - 1.50 mg/dL [facility] Sodium 136 135 - 145 mmol/L [facility] Potassium 4.2 3.5 - 5.0 mmol/L [facility] Comment: Please note: ??Patients with WBC >100,000 may have falsely elevated Potassium levels. ??For accurate Potassium quantification in these patients send serum separator tube (gold top) for subsequent determinations. ??Contact the Clinical Chemistry Laboratory if there are any questions. Chloride 105 98 - 107 mmol/L [facility] Carbon Dioxide 25 22 - 31 mmol/L [facility] Anion Gap 6 5 - 15 mmol/L [facility] Calcium 7.8(L) 8.5 - 10.5 mg/dL [facility] Est Glomerular Filtration Rate 93 >=60 mL/min/1. 73 m?? [facility] Comment: This patient? s estimated glomerular filtration rate (eGFR) is between 93 mL/min/1.73 m2 (patients with less muscle mass per kg body weight) and 108 mL/min/1.73 m2 (patients with more muscle mass per kg body weight) as determined by the CKD-EPI equation. Assessment of eGFR is not appropriate when creatinine concentrations are rapidly changing. For clinical decisions where creatinine clearance will affect therapy, a 24-hour urine creatinine clearance may be advised. Assignment of CKD stage 1 ? 5 for patients with an eGFR near the transition point between stages may be based on clinical assessment of muscle mass and symptoms in addition to eGFR. Blood specimen (specimen) 10/29/2020 12:50 AM EST 10/29/2020 1:03 AM EST Narrative Resulting Agency Comment Spec In Lab Radha Bolden MD CHEMISTRY ORDERABLES [facility] [place] [address] * (ABNORMAL) Phosphorus (10/29/2020 12:50 AM EST) Phosphorus 1.6(L) 2.5 - 4.5 mg/dL [facility] Blood specimen (specimen) 10/29/2020 12:50 AM EST 10/29/2020 1:03 AM EST Narrative Resulting Agency Comment Spec In Lab Radha Bolden MD CHEMISTRY ORDERABLES Performing Organization Address City/[facility] Co de Phone Number [facility] [place] [address] * Magnesium (10/29/2020 12:50 AM EST) Pathologist [facility] Magnesium 0.75 0.69 - 1.07 mmol/L [facility] Blood specimen (specimen) 10/29/2020 12:50 AM EST 10/29/2020 1:03 AM EST Narrative Resulting Agency Comment Spec In Lab Radha Bolden MD CHEMISTRY ORDERABLES Performing Organization Address [facility] de Phone Number [facility] [place] [address] * Differential, Automated (10/28/2020 1:40 AM EST) Pathologist [facility] Neutrophil % 78.6 % [facility] Neutrophil Absolute 5.94 1.70 - 6.10 x10(3)/[facility] LABORATORY Lymph % 12.6 % [facility] Lymphocytes Abs 1.0 0.9 - 3.2 x10(3)/[facility] LABORATORY Monocyte % 8.5 % [facility] Monocyte Abs 0.6 0.3 - 0.9 x10(3)/[facility] LABORATORY Eos % 0.0 % [facility] Eosinophils Abs 0.0 0.0 - 0.4 x10(3)/[facility] LABORATORY Basophil % 0.0 % [facility] Baso Absolute 0.0 0.0 - 0.1 x10(3)/[facility] LABORATORY Immature Gran % 0.30 % [facility] Comment: Immature granulocytes(IG's)percentage and absolute count will include metamyelocytes, myelocytes, and promyelocytes. Blood smears from CBCs yielding IG's will be scanned manually for concordance. If this scan disagrees with the automated IG or if promyelocytes are noted, a manual differential will be performed. Immature Gran Absolute 0.02 0.00 - 0.04 x10(3)/[facility] LABORATORY Blood specimen (specimen) 10/28/2020 1:40 AM EST 10/28/2020 1:46 AM EST Narrative Resulting Agency Comment Spec In Lab Alex Oropeza MD HEMATOLOGY ORDERABLE S [facility] [place] [address] * (ABNORMAL) Hemogram (10/28/2020 1:40 AM EST) White Blood Cell 7.6 4.0 - 9.5 x10(3)/[facility] LABORATORY Red Blood Cell 3.71(L) 4.58 - 5.54 x10(6)/[facility] LABORATORY Hemoglobin 11.3(L) 13.7 - 16.5 gm/dL [facility] Hematocrit 33.8(L) 40.5 - 48.5 % [facility] Mean Cell Volume 91.1 82.9 - 93.1 [facility] LABORATORY Mean Cell Hemoglobin 30.5 27.5 - 32.1 pg [facility] Mean Cell Hemoglobin Concentration 33.4 32.0 - 35.7 gm/dL [facility] Platelet 136(L) 145 - 357 x10(3)/[facility] LABORATORY RDW Standard Deviation 41.5 36.0 - 45.0 [facility] LAB[facility]ATORY RDW coefficient of variation 12.5 11.4 - 13.8 % [facility] Mean Platelet Volume 11.3 7.6 - 12.9 [facility] LAB[facility]ATORY NRBC% auto 0.0 % [facility] NRBC Absolute 0.000 0.000 - 0.000 x10(3)/mc L [facility] Blood specimen (specimen) 10/28/2020 1:40 AM EST 10/28/2020 1:46 AM EST Narrative Resulting Agency Comment Spec In Lab Alex Oropeza MD HEMATOLOGY ORDERABLE S Performing Organization Address [facility] Co de Phone Number [facility] [place] [address] * Phosphorus (10/28/2020 1:40 AM EST) Phosphorus 3.1 2.5 - 4.5 mg/dL [facility] Blood specimen (specimen) 10/28/2020 1:40 AM EST 10/28/2020 1:46 AM EST Narrative Resulting Agency Comment Spec In Lab Radha Bolden MD CHEMISTRY ORDERABLES Performing Organization Address [facility] Phone Number [facility] [place] [address] * Magnesium (10/28/2020 1:40 AM EST) Magnesium 0.88 0.69 - 1.07 mmol/L [facility] Blood specimen (specimen) 10/28/2020 1:40 AM EST 10/28/2020 1:46 AM EST Narrative Resulting Agency Comment Spec In Lab Radha Bolden MD CHEMISTRY ORDERABLES Performing Organization Address [facility] de Phone Number [facility] [place] [address] * (ABNORMAL) Basic Metabolic Panel (non-fasting) (10/28/2020 1:40 AM EST) Glucose 137 65 - 199 mg/dL [facility] Comment:Diabetes: >=200 mg/d L plus symptoms Blood Urea Nitrogen 14 10 - 20 mg/dL [facility] Creatinine 0.90 0.80 - 1.50 mg/dL [facility] Sodium 138 135 - 145 mmol/L [facility] Potassium 4.6 3.5 - 5.0 mmol/L [facility] Comment: Please note: ??Patients with WBC >100,000 may have falsely elevated Potassium levels. ??For accurate Potassium quantification in these patients send serum separator tube (gold top) for subsequent determinations. ??Contact the Clinical Chemistry Laboratory if there are any questions. Chloride 108(H) 98 - 107 mmol/L [facility] Carbon Dioxide 24 22 - 31 mmol/L [facility] Anion Gap 6 5 - 15 mmol/L [facility] Calcium 7.7(L) 8.5 - 10.5 mg/dL [facility] Est Glomerular Filtration Rate 97 >=60 mL/min/1. 73 m?? [facility] Comment: This patient? s estimated glomerular filtration rate (eGFR) is between 97 mL/min/1.73 m2 (patients with less muscle mass per kg body weight) and 113 mL/min/1.73 m2 (patients with more muscle mass per kg body weight) as determined by the CKD-EPI equation. Assessment of eGFR is not appropriate when creatinine concentrations are rapidly changing. For clinical decisions where creatinine clearance will affect therapy, a 24-hour urine creatinine clearance may be advised. Assignment of CKD stage 1 ? 5 for patients with an eGFR near the transition point between stages may be based on clinical assessment of muscle mass and symptoms in addition to eGFR. Blood specimen (specimen) 10/28/2020 1:40 AM EST 10/28/2020 1:46 AM EST Narrative Resulting Agency Comment Spec In Lab Radha Bolden MD CHEMISTRY ORDERABLES [facility] [place] [address] * XR Cervical Spine 2 or 3 Views (10/27/2020 11:42 PM EST) Anatomical Region Laterality Modality C-spine N/A Digital Radiogra phy Impressions 10/28/2020 3:05 AM EST FINDINGS/IMPRESSION: Patient is status post C4-T2 posterior bryon and ??bilateral transpedicular screws fixation with normal alignment of the cervical spine. Expected post operative appearance of the soft tissues. Visualized upper lung kothari are unremarkable. Thank you for letting us participate in the care of this patient. For questions regarding this report, please contact the number below. ? Narrative 10/28/2020 3:05 AM EST EXAMINATION: XR CERVICAL SPINE 2 OR 3 VIEWS CLINICAL HISTORY: S/P C5-T2 PSIF AP and lateral please TECHNIQUE: 3 views of the cervical spine COMPARISON: MRI C-spine dated 10/27/2020 Procedure Note Tim Anthony MD - 10/28/2020 EXAMINATION: XR CERVICAL SPINE 2 OR 3 VIEWS CLINICAL HISTORY: S/P C5-T2 PSIF AP and lateral please TECHNIQUE: 3 views of the cervical spine COMPARISON: MRI C-spine dated 10/27/2020 IMPRESSION FINDINGS/IMPRESSION: Patient is status post C4-T2 posterior bryon andbilateral transpedicular screws fixation with normal alignment of the cervicalspine. Expected post operative appearance of the soft tissues. Visualized upper lung kothari are unremarkable. Thank you for letting us participate in the care of this patient. Forquestions regarding this report, please contact the number below. Adrienne Medellin MD IM DX ORDERABLES * (ABNORMAL) Hepatic Function Panel (10/27/2020 5:25 PM EST) Protein, Total 5.4(L) 6.1 - 8.0 gm/dL [facility] Albumin 3.5 3.2 - 5.2 gm/dL [facility] Aspartate Aminotransferase 80(H) 0 - 39 unit/L [facility] Alanine Aminotransferase 32 0 - 55 unit/L [facility] Alkaline Phosphatase 60 40 - 130 unit/L [facility] Bilirubin, Total 0.5 0.2 - 1.3 mg/dL [facility] Bilirubin, Direct 0.1 0.0 - 0.3 mg/dL [facility] Blood specimen (specimen) Venous Draw / Unknown 10/27/2020 5:25 PM EST 10/27/2020 6:19 PM EST Narrative Resulting Agency Comment Spec In Lab Neida Omalley MD CHEMISTRY ORDERABLES Performing Organization Address [facility] Co de Phone Number [facility] [place] [address] * Potassium (10/27/2020 5:25 PM EST) Potassium 4.8 3.5 - 5.0 mmol/L [facility] Comment: Please note: ??Patients with WBC >100,000 may have falsely elevated Potassium levels. ??For accurate Potassium quantification in these patients send serum separator tube (gold top) for subsequent determinations. ??Contact the Clinical Chemistry Laboratory if there are any questions. Blood specimen (specimen) 10/27/2020 5:25 PM EST 10/27/2020 6:15 PM EST Narrative Resulting Agency Comment Spec In Lab Adrienne Medellin MD CHEMISTRY ORDERABLES Performing Organization Address City/[facility] Co de Phone Number [facility] [address] * Magnesium (10/27/2020 5:25 PM EST) Magnesium 0.91 0.69 - 1.07 mmol/L [facility] Blood specimen (specimen) 10/27/2020 5:25 PM EST 10/27/2020 6:15 PM EST Narrative Resulting Agency Comment Spec In Lab Adrienne Medellin MD CHEMISTRY ORDERABLES [facility] [place] [address] * XR Chest One View (10/27/2020 2:29 PM EST) Anatomical Region Laterality Modality Chest N/A Digital Radiogra phy Impressions 10/27/2020 2:43 PM EST Endotracheal tube is in a satisfactory position. Thank you for letting us participate in the care of this patient. For questions regarding this report, please contact the number below. ? Narrative 10/27/2020 2:43 PM EST EXAMINATION: XR CHEST ONE VIEW CLINICAL HISTORY: Verify ETT placement TECHNIQUE: AP view of the chest COMPARISON: CT scan October 26, 2020 FINDINGS: An endotracheal tube is present with its distal tip approximately 6.5 cm above the luis miguel. The lungs are clear. The heart size is normal and mediastinum has normal contour. Both costophrenic angles are sharp. No pneumothorax is seen. The inferior aspect of a cervical fixation device can be seen. Surgical sharla are present. There is also a drain projecting over the base of the neck. Procedure Note Tre Mendez MD - 10/27/2020 EXAMINATION: XR CHEST ONE VIEW CLINICAL HISTORY: Verify ETT placement TECHNIQUE: AP view of the chest COMPARISON: CT scan October 26, 2020 FINDINGS: An endotracheal tube is present with its distal tip approximately 6.5 cmabove the luis miguel. The lungs are clear. The heart size is normal and mediastinum has normal contour. Both costophrenic angles are sharp. No pneumothorax is seen. The inferior aspect of a cervical fixation device can be seen. Surgicalstaples are present. There is also a drain projecting over the base of the neck. IMPRESSION Endotracheal tube is in a satisfactory position. Thank you for letting us participate in the care of this patient. Forquestions regarding this report, please contact the number below. Adrienne Medellin MD IMG DX ORDERABLES * XR Abdomen 1 view (Generic) (10/27/2020 2:29 PM EST) Anatomical Region Laterality Modality Abdomen N/A Digital Radiogra phy Impressions 10/28/2020 7:32 AM EST FINDINGS/IMPRESSION: NG tube side-port and tip project over the stomach. Air scattered throughout the included upper GI tract. Thank you for letting us participate in the care of this patient. For questions regarding this report, please contact the number below. ? Electronically signed by: Allen García MD, [facility] ([phone]), at 10/28/2020 7:32 AM Narrative 10/28/2020 7:32 AM EST EXAMINATION: XR ABDOMEN 1 VIEW (GENERIC) CLINICAL HISTORY: NG tube placement TECHNIQUE: Targeted single supine portable frontal radiograph centered over the upper abdomen dedicated for evaluation of transesophageal enteric tube positioning, and otherwise nondiagnostic. COMPARISON: None Procedure Note Allen García MD - 10/28/2020 EXAMINATION: XR ABDOMEN 1 VIEW (GENERIC) CLINICAL HISTORY: NG tube placement TECHNIQUE: Targeted single supine portable frontal radiograph centeredover the upper abdomen dedicated for evaluation of transesophageal enteric tube positioning, and otherwise nondiagnostic. COMPARISON: None IMPRESSION FINDINGS/IMPRESSION: NG tube side-port and tip project over the stomach. Air scattered throughout the included upper GI tract. Thank you for letting us participate in the care of this patient. Forquestions regarding this report, please contact the number below. Adrienne Medellin MD IMG DX ORDERABLES * (ABNORMAL) Differential, Automated (10/27/2020 1:25 PM EST) Neutrophil % 92.4 % [facility] Neutrophil Absolute 8.31(H) 1.70 - 6.10 x10(3)/mc L [facility] Lymph % 5.3 % [facility] Lymphocytes Abs 0.5(L) 0.9 - 3.2 x10(3)/mc L [facility] Monocyte % 2.0 % [facility] Monocyte Abs 0.2(L) 0.3 - 0.9 x10(3)/mc L [facility] Eos % 0.0 % [facility] Eosinophils Abs 0.0 0.0 - 0.4 x10(3)/ L [facility] Basophil % 0.1 % [facility] Baso Absolute 0.0 0.0 - 0.1 x10(3)/mc L [facility] Immature Gran % 0.20 % [facility] Comment: Immature granulocytes(IG's)percentage and absolute count will include metamyelocytes, myelocytes, and promyelocytes. Blood smears from CBCs yielding IG's will be scanned manually for concordance. If this scan disagrees with the automated IG or if promyelocytes are noted, a manual differential will be performed. Immature Gran Absolute 0.02 0.00 - 0.04 x10(3)/[facility] LABORATORY Blood specimen (specimen) 10/27/2020 1:25 PM EST 10/27/2020 1:29 PM EST Narrative Resulting Agency Comment Spec In Lab Tyesha Lopez MD HEMATOLOGY ORDERABL ES [facility] [place] [address] * (ABNORMAL) Hemogram (10/27/2020 1:25 PM EST) White Blood Cell 9.0 4.0 - 9.5 x10(3)/[facility] LABORAT[facility] Red Blood Cell 3.84(L) 4.58 - 5.54 x10(6)/[facility]ORY Hemoglobin 11.7(L) 13.7 - 16.5 gm/dL [facility] Hematocrit 35.4(L) 40.5 - 48.5 % [facility] Mean Cell Volume 92.2 82.9 - 93.1 fL [facility] Mean Cell Hemoglobin 30.5 27.5 - 32.1 pg [facility] Mean Cell Hemoglobin Concentration 33.1 32.0 - 35.7 gm/dL [facility] Platelet 169 145 - 357 x10(3)/[facility] LABORATORY RDW Standard Deviation 42.6 36.0 - 45.0 [facility] LABORATORY RDW coefficient of variation 12.6 11.4 - 13.8 % [facility] Mean Platelet Volume 10.9 7.6 - 12.9 [facility]ORY NRBC% auto 0.0 % [facility] NRBC Absolute 0.000 0.000 - 0.000 x10(3)/[facility] Blood specimen (specimen) 10/27/2020 1:25 PM EST 10/27/2020 1:29 PM EST Narrative Resulting Agency Comment Spec In Lab Tyesha Lopez MD HEMATOLOGY ORDERABL ES Performing Organization Address [facility] Co de Phone Number [facility] [place] [address] * Phosphorus (10/27/2020 1:25 PM EST) [facility] Phosphorus 3.6 2.5 - 4.5 mg/dL [facility] Blood specimen (specimen) 10/27/2020 1:25 PM EST 10/27/2020 1:29 PM EST Narrative Resulting Agency Comment Spec In Lab Adrienne Medellin MD CHEMISTRY ORDERABLES Performing Organization Address [facility] Phone Number [facility] [place] [address] * (ABNORMAL) Magnesium (10/27/2020 1:25 PM EST) [facility] Magnesium 0.61(L) 0.69 - 1.07 mmol/L [facility] Blood specimen (specimen) 10/27/2020 1:25 PM EST 10/27/2020 1:29 PM EST Narrative Resulting Agency Comment Spec In Lab Adrienne Medellin MD CHEMISTRY ORDERABLES Performing Organization Address [facility] Co de Phone Number [facility] [place] [address] * (ABNORMAL) Basic Metabolic Panel (non-fasting) (10/27/2020 1:25 PM EST) [facility] Glucose 117 65 - 199 mg/dL [facility] Comment:Diabetes: >=200 mg/d L plus symptoms Blood Urea Nitrogen 13 10 - 20 mg/dL [facility] Creatinine 1.08 0.80 - 1.50 mg/dL [facility] Sodium 137 135 - 145 mmol/L [facility] Potassium 5.3(H) 3.5 - 5.0 mmol/L [facility] Comment: result rechecked-ga Please note: ??Patients with WBC >100,000 may have falsely elevated Potassium levels. ??For accurate Potassium quantification in these patients send serum separator tube (gold top) for subsequent determinations. ??Contact the Clinical Chemistry Laboratory if there are any questions. Chloride 108(H) 98 - 107 mmol/L [facility] Carbon Dioxide 21(L) 22 - 31 mmol/L [facility] Anion Gap 8 5 - 15 mmol/L [facility] Calcium 7.6(L) 8.5 - 10.5 mg/dL [facility] Est Glomerular Filtration Rate 78 >=60 mL/min/1. 73 m?? [facility] Comment: This patient? s estimated glomerular filtration rate (eGFR) is between 78 mL/min/1.73 m2 (patients with less muscle mass per kg body weight) and 90 mL/min/1.73 m2 (patients with more muscle mass per kg body weight) as determined by the CKD-EPI equation. Assessment of eGFR is not appropriate when creatinine concentrations are rapidly changing. For clinical decisions where creatinine clearance will affect therapy, a 24-hour urine creatinine clearance may be advised. Assignment of CKD stage 1 ? 5 for patients with an eGFR near the transition point between stages may be based on clinical assessment of muscle mass and symptoms in addition to eGFR. Blood specimen (specimen) 10/27/2020 1:25 PM EST 10/27/2020 1:29 PM EST Narrative Resulting Agency Comment Spec In Lab Adrienne Medellin MD CHEMISTRY ORDERABLES Performing Organization Address City/State/[facility] Co de Phone Number [facility] [place] [address] * XR O-Arm No Rad <1Hr - OR Use (10/27/2020 12:00 PM EST) Anatomical Region Laterality Modality N/A Radio Fluoroscop y Impressions 10/27/2020 12:52 PM EST Dose report for intraoperative imaging. Thank you for letting us participate in the care of this patient. For questions regarding this report, please contact the number below. ? Narrative 10/27/2020 12:52 PM EST EXAMINATION: XR O-ARM NO RAD - OR USE CLINICAL HISTORY: C6-7 facet dislocation TECHNIQUE: Series: The submitted images consist of in-progress intraoperative CT fluoroscopic O-arm images of the cervical thoracic spine for fusion of facet dislocation injury. Total fluoroscopy dose: 3.77 seconds, 70.32 DAP (Rcm2) Total 3-D dose 96.28 DLP (Rcm) Procedure Note Delfina Badillo MD - 10/27/2020 EXAMINATION: XR O-ARM NO RAD - OR USE CLINICAL HISTORY: C6-7 facet dislocation TECHNIQUE: Series: The submitted images consist of in-progress intraoperative CT fluoroscopic O-arm images of the cervical thoracic spine for fusion offacet dislocation injury. Total fluoroscopy dose: 3.77 seconds, 70.32 DAP (Rcm2) Total 3-D dose 96.28 DLP (Rcm) IMPRESSION Dose report for intraoperative imaging. Thank you for letting us participate in the care of this patient. Forquestions regarding this report, please contact the number below. Adrienne Medellin MD IMG FLUORO ORDERABLE S * (ABNORMAL) BLOOD GAS 2 ARTERIAL (10/27/2020 11:29 AM EST) pH, Arterial 7.31(L) 7.35 - 7.45 [facility] PCO2, Arterial 41 35 - 45 mmHg [facility] PO2, Arterial 153(H) 85 - 104 mmHg [facility] Bicarbonate, Arterial 20.4 20.0 - 26.0 mmol/L [facility] Base Excess, Arterial -6.2(L) -3.0 - 3.0 mmol/L [facility] Hgb Blood Gas 13.0(L) 13.7 - 16.5 gm/dL [facility] Oxyhemoglobin, Arterial 97.6(H) 94.0 - 97.0 % [facility] Carboxyhemoglob in, Arterial 0.9 % [facility] Comment: Nonsmokers: 0.5-1.5% COHB Smokers: Variable, but usually less than 10% Toxic: 20-30% COHB Lethal: Greater than 60% COHB Methemoglobin, Arterial 0.3 <=1.5 % [facility] Na Whole Blood 133(L) 135 - 145 mmol/L [facility] K Whole Blood 5.1(H) 3.5 - 5.0 mmol/L [facility] Comment: Please note: Patients with WBC >100,000 may have falsely elevated Potassium levels. Contact the Clinical Chemistry Laboratory if there are any questions. ICa Whole Blood 1.09(L) 1.15 - 1.33 mmol/L [facility] Comment: Note: ??Total bilirubin higher than 20 mg/dL may lead to falsely low ionized calcium. CL Whole Blood 110(H) 98 - 107 mmol/L [facility] Gluc Whole Bld 105 65 - 199 mg/dL [facility] Comment:Diabetes: >=200 mg/d L plus symptoms. Lactate WB 1.4 0.5 - 2.2 mmol/L [facility] FIO2 Art 42 % [facility] PF Ratio Art 364 [facility] Temp Art 35.9 Celsius [facility] Blood specimen (specimen) 10/27/2020 11:29 AM EST 10/27/2020 11:29 AM EST Adrienne Medellin MD POINT OF CARE TEST O RDERABLES [facility] [place] [address] * (ABNORMAL) BLOOD GAS 2 ARTERIAL (10/27/2020 10:27 AM EST) pH, Arterial 7.32(L) 7.35 - 7.45 [facility] PCO2, Arterial 38 35 - 45 mmHg [facility] PO2, Arterial 131(H) 85 - 104 mmHg [facility] Bicarbonate, Arterial 19.8(L) 20.0 - 26.0 mmol/L [facility] Base Excess, Arterial -6.6(L) -3.0 - 3.0 mmol/L [facility] Hgb Blood Gas 13.0(L) 13.7 - 16.5 gm/dL [facility] Oxyhemoglobin, Arterial 97.5(H) 94.0 - 97.0 % [facility] Carboxyhemoglob in, Arterial 0.8 % [facility] Comment: Nonsmokers: 0.5-1.5% COHB Smokers: Variable, but usually less than 10% Toxic: 20-30% COHB Lethal: Greater than 60% COHB Methemoglobin, Arterial 0.3 <=1.5 % [facility] Na Whole Blood 134(L) 135 - 145 mmol/L [facility] K Whole Blood 4.6 3.5 - 5.0 mmol/L [facility] Comment: Please note: Patients with WBC >100,000 may have falsely elevated Potassium levels. Contact the Clinical Chemistry Laboratory if there are any questions. ICa Whole Blood 1.11(L) 1.15 - 1.33 mmol/L [facility] Comment: Note: ??Total bilirubin higher than 20 mg/dL may lead to falsely low ionized calcium. CL Whole Blood 110(H) 98 - 107 mmol/L [facility] Gluc Whole Bld 101 65 - 199 mg/dL [facility] Comment:Diabetes: >=200 mg/d L plus symptoms. Lactate WB 1.5 0.5 - 2.2 mmol/L [facility] FIO2 Art 42 % [facility] PF Ratio Art 312 [facility] Temp Art 35.1 Celsius [facility] Blood specimen (specimen) 10/27/2020 10:27 AM EST 10/27/2020 10:27 AM EST Adrienne Medellin MD POINT OF CARE TEST O VISHAL [facility] [place] [address] * (ABNORMAL) BLOOD GAS 2 ARTERIAL (10/27/2020 9:28 AM EST) pH, Arterial 7.29(Crit ical) 7.35 - 7.45 [facility] Comment: Noted by instrument lens generator. Critical notified to Dr. Mariana Rojas by instrument lens generator immediately following run time. PCO2, Arterial 40 35 - 45 mmHg [facility] PO2, Arterial 171(H) 85 - 104 mmHg [facility] Bicarbonate, Arterial 19.6(L) 20.0 - 26.0 mmol/L [facility] Base Excess, Arterial -7.5(L) -3.0 - 3.0 mmol/L [facility] Hgb Blood Gas 13.5(L) 13.7 - 16.5 gm/dL [facility] Oxyhemoglobin, Arterial 98.0(H) 94.0 - 97.0 % [facility] Carboxyhemoglob in, Arterial 0.8 % [facility] Comment: Nonsmokers: 0.5-1.5% COHB Smokers: Variable, but usually less than 10% Toxic: 20-30% COHB Lethal: Greater than 60% COHB Methemoglobin, Arterial 0.3 <=1.5 % [facility] Na Whole Blood 135 135 - 145 mmol/L [facility] K Whole Blood 4.3 3.5 - 5.0 mmol/L [facility] Comment: Please note: Patients with WBC >100,000 may have falsely elevated Potassium levels. Contact the Clinical Chemistry Laboratory if there are any questions. ICa Whole Blood 1.15 1.15 - 1.33 mmol/L [facility] Comment: Note: ??Total bilirubin higher than 20 mg/dL may lead to falsely low ionized calcium. CL Whole Blood 108(H) 98 - 107 mmol/L [facility] Gluc Whole Bld 103 65 - 199 mg/dL [facility] Comment:Diabetes: >=200 mg/d L plus symptoms. Lactate WB 2.2 0.5 - 2.2 mmol/L [facility] FIO2 Art 43 % [facility] PF Ratio Art 398 [facility] Temp Art 34.7 Celsius [facility] Blood specimen (specimen) 10/27/2020 9:28 AM EST 10/27/2020 9:28 AM EST Adrienne Medellin MD POINT OF CARE TEST O VISHAL Performing Organization Address [facility] Co de Phone Number [facility] [place] [address] * POCT Glucose (10/27/2020 6:19 AM EST) Glucose, POC 101 65 - 199 mg/dL [facility] Comment: Supplemental ranges: <140 mg/dL before meals <180 mg/dL all other times of the day Blood specimen (specimen) 10/27/2020 6:19 AM EST 10/27/2020 6:19 AM EST Adrienne Medellin MD POINT OF CARE TEST O VISHAL Performing Organization Address [facility] Co de Phone Number [facility] [place] [address] * MRI Cervical Spine wo Contrast (Generic) (10/27/2020 6:05 AM EST) Anatomical Region Laterality Modality C-spine Magnetic Resonan ce Impressions 10/27/2020 7:01 AM EST Severely limited study due to patient motion. Persistent grade 3 anterolisthesis of C6 on C7 secondary to bilateral locked facets resulting in severe canal narrowing and cord compression with associated hemorrhagic cord contusion/edema, disc rupture, and trans-ligamentous injuries at this level. Additional injuries involving the nuchal ligament, supraspinous ligament, and probable dorsal interosseous ligaments at the upper cervical levels as well as paraspinal muscle edema. I have personally reviewed the image(s) and the resident's interpretation and agree with the findings, Allen García MD at 10/27/2020 7:01 AM Thank you for letting us participate in the care of this patient. For questions regarding this report, please contact the number below. ? Electronically signed by: Allen García MD, [facility] ([phone]), at 10/27/2020 7:01 AM Narrative 10/27/2020 7:01 AM EST EXAMINATION: MRI CERVICAL SPINE WO CONTRAST (GENERIC) CLINICAL HISTORY: Dislocation, cervical. Assess for ligamentous injury TECHNIQUE: MRI of the cervical spine performed without intravenous contrast administration. COMPARISON: CTA neck and CT C-spine 10/26/2020, CT spine radiographs 10/27/2020 FINDINGS: Patient motion artifact degrades image quality of portions of the examination rendering suboptimal assessment; within these confines: Redemonstrated grade 3 anterolisthesis of C6 over C7 with bilateral C6-C7 locked facets and facet capsular rupture. C6-C7 disc rupture with disc material protruded anteriorly and uncovered posteriorly. Severe spinal canal narrowing and cord compression with cord edema spanning the length of the level of C6 and C7; mild internal heterogeneity may represent hemorrhagic cord contusion. ALL, PLL, and ligamentum flavum are disrupted at this level, as well as the interspinous ligament (also probably injured at the upper levels as well as the posterior atlantooccipital and atlantoaxial membranes). Diffuse edema within the nuchal ligament compatible with injury. Probable strain of the supraspinous ligament. Prevertebral hematoma spanning C7-T1. Diffuse paraspinal muscle edema/injury. Multilevel spondylosis which cannot be accurately characterized given excessive motion artifact. Procedure Note Allen García MD - 10/27/2020 EXAMINATION: MRI CERVICAL SPINE WO CONTRAST (GENERIC) CLINICAL HISTORY: Dislocation, cervical. Assess for ligamentous injury TECHNIQUE: MRI of the cervical spine performed without intravenous contrastadministration. COMPARISON: CTA neck and CT C-spine 10/26/2020, CT spine radiographs 10/27/2020 FINDINGS: Patient motion artifact degrades image quality of portions of theexamination rendering suboptimal assessment; within these confines: Redemonstrated grade 3 anterolisthesis of C6 over C7 with bilateral C6-B9ypbrgn facets and facet capsular rupture. C6-C7 disc rupture with disc material protruded anteriorly and uncovered posteriorly. Severe spinal canalnarrowing and cord compression with cord edema spanning the length of the level ofC6 and C7; mild internal heterogeneity may represent hemorrhagic cord contusion.ALL, PLL, and ligamentum flavum are disrupted at this level, as well as the interspinous ligament (also probably injured at the upper levels as wellas the posterior atlantooccipital and atlantoaxial membranes). Diffuse edemawithin the nuchal ligament compatible with injury. Probable strain of thesupraspinous ligament. Prevertebral hematoma spanning C7-T1. Diffuse paraspinalmuscle edema/injury. Multilevel spondylosis which cannot be accuratelycharacterized given excessive motion artifact. IMPRESSION Severely limited study due to patient motion. Persistent grade 3anterolisthesis of C6 on C7 secondary to bilateral locked facets resulting in severecanal narrowing and cord compression with associated hemorrhagic cordcontusion/edema, disc rupture, and trans-ligamentous injuries at this level. Additionalinjuries involving the nuchal ligament, supraspinous ligament, and probabledorsal interosseous ligaments at the upper cervical levels as well as paraspinalmuscle edema. I have personally reviewed the image(s) and the resident's interpretationand agree with the findings, Allen García MD at 10/27/2020 7:01 AM Thank you for letting us participate in the care of this patient. Forquestions regarding this report, please contact the number below. Alexandr Ramirez MD IMG MRI ORDERABLES * XR Cervical Spine 1 View (10/27/2020 4:59 AM EST) Anatomical Region Laterality Modality C-spine N/A Digital Radiogra phy Impressions 10/27/2020 5:17 AM EST FINDINGS/IMPRESSION: Redemonstrated grade 3 anterolisthesis of C6 over C7 with bilateral locked facets. Sequential radiographs with progressive increased traction demonstrate mild progressively increased widening at C6-C7 intervertebral space (up to slightly greater than expected anatomical distance) without resultant reduction of the locked facets or listhesis. Final image with 0 pounds traction demonstrates slightly decreased intervertebral space compared to the weighted traction images. Thank you for letting us participate in the care of this patient. For questions regarding this report, please contact the number below. ? Electronically signed by: Allen García MD, [facility] ([phone]), at 10/27/2020 5:17 AM Narrative 10/27/2020 5:17 AM EST EXAMINATION: XR CERVICAL SPINE 1 VIEW, XR CERVICAL SPINE 1 VIEW, XR CERVICAL SPINE 1 VIEW, XR CERVICAL SPINE 1 VIEW, XR CERVICAL SPINE 1 VIEW, XR CERVICAL SPINE 1 VIEW, XR CERVICAL SPINE 1 VIEW, XR CERVICAL SPINE 1 VIEW, XR CERVICAL SPINE 1 VIEW, XR CERVICAL SPINE 1 VIEW, XR CERVICAL SPINE 1 VIEW, XR CERVICAL SPINE 1 VIEW, XR CERVICAL SPINE 1 VIEW CLINICAL HISTORY: jumed facets; attempt at reductino COMPARISON: CT cervical spine 10/26/2020 TECHNIQUE: Sequential lateral radiographs of the cervical spine, with progressively increasing traction in 10 pound increments starting from 10 pounds to 80 pounds then 4 radiographs with 90 pounds and final radiograph with 0 pounds Procedure Note Allen García MD - 10/27/2020 EXAMINATION: XR CERVICAL SPINE 1 VIEW, XR CERVICAL SPINE 1 VIEW, XRCERVICAL SPINE 1 VIEW, XR CERVICAL SPINE 1 VIEW, XR CERVICAL SPINE 1 VIEW, XRCERVICAL SPINE 1 VIEW, XR CERVICAL SPINE 1 VIEW, XR CERVICAL SPINE 1 VIEW, XRCERVICAL SPINE 1 VIEW, XR CERVICAL SPINE 1 VIEW, XR CERVICAL SPINE 1 VIEW, XRCERVICAL SPINE 1 VIEW, XR CERVICAL SPINE 1 VIEW CLINICAL HISTORY: jumed facets; attempt at reductino COMPARISON: CT cervical spine 10/26/2020 TECHNIQUE: Sequential lateral radiographs of the cervical spine, with progressively increasing traction in 10 pound increments starting from 10pounds to 80 pounds then 4 radiographs with 90 pounds and final radiograph with0 pounds IMPRESSION FINDINGS/IMPRESSION: Redemonstrated grade 3 anterolisthesis of C6 over C7 with bilaterallocked facets. Sequential radiographs with progressive increased tractiondemonstrate mild progressively increased widening at C6-C7 intervertebral space (upto slightly greater than expected anatomical distance) without resultantreduction of the locked facets or listhesis. Final image with 0 pounds traction demonstrates slightly decreased intervertebral space compared to theweighted traction images. Thank you for letting us participate in the care of this patient. Forquestions regarding this report, please contact the number below. Alexandr Ramirez MD IMG DX ORDERABLES * XR Cervical Spine 1 View (10/27/2020 4:59 AM EST) Anatomical Region Laterality Modality C-spine N/A Digital Radiogra phy Impressions 10/27/2020 5:17 AM EST FINDINGS/IMPRESSION: Redemonstrated grade 3 anterolisthesis of C6 over C7 with bilateral locked facets. Sequential radiographs with progressive increased traction demonstrate mild progressively increased widening at C6-C7 intervertebral space (up to slightly greater than expected anatomical distance) without resultant reduction of the locked facets or listhesis. Final image with 0 pounds traction demonstrates slightly decreased intervertebral space compared to the weighted traction images. Thank you for letting us participate in the care of this patient. For questions regarding this report, please contact the number below. ? Electronically signed by: Allen García MD, [facility] ([phone]), at 10/27/2020 5:17 AM Narrative 10/27/2020 5:17 AM EST EXAMINATION: XR CERVICAL SPINE 1 VIEW, XR CERVICAL SPINE 1 VIEW, XR CERVICAL SPINE 1 VIEW, XR CERVICAL SPINE 1 VIEW, XR CERVICAL SPINE 1 VIEW, XR CERVICAL SPINE 1 VIEW, XR CERVICAL SPINE 1 VIEW, XR CERVICAL SPINE 1 VIEW, XR CERVICAL SPINE 1 VIEW, XR CERVICAL SPINE 1 VIEW, XR CERVICAL SPINE 1 VIEW, XR CERVICAL SPINE 1 VIEW, XR CERVICAL SPINE 1 VIEW CLINICAL HISTORY: jumed facets; attempt at reductino COMPARISON: CT cervical spine 10/26/2020 TECHNIQUE: Sequential lateral radiographs of the cervical spine, with progressively increasing traction in 10 pound increments starting from 10 pounds to 80 pounds then 4 radiographs with 90 pounds and final radiograph with 0 pounds Procedure Note Allen García MD - 10/27/2020 EXAMINATION: XR CERVICAL SPINE 1 VIEW, XR CERVICAL SPINE 1 VIEW, XRCERVICAL SPINE 1 VIEW, XR CERVICAL SPINE 1 VIEW, XR CERVICAL SPINE 1 VIEW, XRCERVICAL SPINE 1 VIEW, XR CERVICAL SPINE 1 VIEW, XR CERVICAL SPINE 1 VIEW, XRCERVICAL SPINE 1 VIEW, XR CERVICAL SPINE 1 VIEW, XR CERVICAL SPINE 1 VIEW, XRCERVICAL SPINE 1 VIEW, XR CERVICAL SPINE 1 VIEW CLINICAL HISTORY: jumed facets; attempt at reductino COMPARISON: CT cervical spine 10/26/2020 TECHNIQUE: Sequential lateral radiographs of the cervical spine, with progressively increasing traction in 10 pound increments starting from 10pounds to 80 pounds then 4 radiographs with 90 pounds and final radiograph with0 pounds IMPRESSION FINDINGS/IMPRESSION: Redemonstrated grade 3 anterolisthesis of C6 over C7 with bilaterallocked facets. Sequential radiographs with progressive increased tractiondemonstrate mild progressively increased widening at C6-C7 intervertebral space (upto slightly greater than expected anatomical distance) without resultantreduction of the locked facets or listhesis. Final image with 0 pounds traction demonstrates slightly decreased intervertebral space compared to theweighted traction images. Thank you for letting us participate in the care of this patient. Forquestions regarding this report, please contact the number below. Alexandr Ramirez MD IMG DX ORDERABLES * XR Cervical Spine 1 View (10/27/2020 4:59 AM EST) Anatomical Region Laterality Modality C-spine N/A Digital Radiogra phy Impressions 10/27/2020 5:17 AM EST FINDINGS/IMPRESSION: Redemonstrated grade 3 anterolisthesis of C6 over C7 with bilateral locked facets. Sequential radiographs with progressive increased traction demonstrate mild progressively increased widening at C6-C7 intervertebral space (up to slightly greater than expected anatomical distance) without resultant reduction of the locked facets or listhesis. Final image with 0 pounds traction demonstrates slightly decreased intervertebral space compared to the weighted traction images. Thank you for letting us participate in the care of this patient. For questions regarding this report, please contact the number below. ? Electronically signed by: Allen García MD, [facility] ([phone]), at 10/27/2020 5:17 AM Narrative 10/27/2020 5:17 AM EST EXAMINATION: XR CERVICAL SPINE 1 VIEW, XR CERVICAL SPINE 1 VIEW, XR CERVICAL SPINE 1 VIEW, XR CERVICAL SPINE 1 VIEW, XR CERVICAL SPINE 1 VIEW, XR CERVICAL SPINE 1 VIEW, XR CERVICAL SPINE 1 VIEW, XR CERVICAL SPINE 1 VIEW, XR CERVICAL SPINE 1 VIEW, XR CERVICAL SPINE 1 VIEW, XR CERVICAL SPINE 1 VIEW, XR CERVICAL SPINE 1 VIEW, XR CERVICAL SPINE 1 VIEW CLINICAL HISTORY: jumed facets; attempt at reductino COMPARISON: CT cervical spine 10/26/2020 TECHNIQUE: Sequential lateral radiographs of the cervical spine, with progressively increasing traction in 10 pound increments starting from 10 pounds to 80 pounds then 4 radiographs with 90 pounds and final radiograph with 0 pounds Procedure Note Allen García MD - 10/27/2020 EXAMINATION: XR CERVICAL SPINE 1 VIEW, XR CERVICAL SPINE 1 VIEW, XRCERVICAL SPINE 1 VIEW, XR CERVICAL SPINE 1 VIEW, XR CERVICAL SPINE 1 VIEW, XRCERVICAL SPINE 1 VIEW, XR CERVICAL SPINE 1 VIEW, XR CERVICAL SPINE 1 VIEW, XRCERVICAL SPINE 1 VIEW, XR CERVICAL SPINE 1 VIEW, XR CERVICAL SPINE 1 VIEW, XRCERVICAL SPINE 1 VIEW, XR CERVICAL SPINE 1 VIEW CLINICAL HISTORY: jumed facets; attempt at reductino COMPARISON: CT cervical spine 10/26/2020 TECHNIQUE: Sequential lateral radiographs of the cervical spine, with progressively increasing traction in 10 pound increments starting from 10pounds to 80 pounds then 4 radiographs with 90 pounds and final radiograph with0 pounds IMPRESSION FINDINGS/IMPRESSION: Redemonstrated grade 3 anterolisthesis of C6 over C7 with bilaterallocked facets. Sequential radiographs with progressive increased tractiondemonstrate mild progressively increased widening at C6-C7 intervertebral space (upto slightly greater than expected anatomical distance) without resultantreduction of the locked facets or listhesis. Final image with 0 pounds traction demonstrates slightly decreased intervertebral space compared to theweighted traction images. Thank you for letting us participate in the care of this patient. Forquestions regarding this report, please contact the number below. Alexandr Ramirez MD IMG DX ORDERABLES * XR Cervical Spine 1 View (10/27/2020 4:59 AM EST) Anatomical Region Laterality Modality C-spine N/A Digital Radiogra phy Impressions 10/27/2020 5:17 AM EST FINDINGS/IMPRESSION: Redemonstrated grade 3 anterolisthesis of C6 over C7 with bilateral locked facets. Sequential radiographs with progressive increased traction demonstrate mild progressively increased widening at C6-C7 intervertebral space (up to slightly greater than expected anatomical distance) without resultant reduction of the locked facets or listhesis. Final image with 0 pounds traction demonstrates slightly decreased intervertebral space compared to the weighted traction images. Thank you for letting us participate in the care of this patient. For questions regarding this report, please contact the number below. ? Electronically signed by: Allen García MD, [facility] ([phone]), at 10/27/2020 5:17 AM Narrative 10/27/2020 5:17 AM EST EXAMINATION: XR CERVICAL SPINE 1 VIEW, XR CERVICAL SPINE 1 VIEW, XR CERVICAL SPINE 1 VIEW, XR CERVICAL SPINE 1 VIEW, XR CERVICAL SPINE 1 VIEW, XR CERVICAL SPINE 1 VIEW, XR CERVICAL SPINE 1 VIEW, XR CERVICAL SPINE 1 VIEW, XR CERVICAL SPINE 1 VIEW, XR CERVICAL SPINE 1 VIEW, XR CERVICAL SPINE 1 VIEW, XR CERVICAL SPINE 1 VIEW, XR CERVICAL SPINE 1 VIEW CLINICAL HISTORY: jumed facets; attempt at reductino COMPARISON: CT cervical spine 10/26/2020 TECHNIQUE: Sequential lateral radiographs of the cervical spine, with progressively increasing traction in 10 pound increments starting from 10 pounds to 80 pounds then 4 radiographs with 90 pounds and final radiograph with 0 pounds Procedure Note Allen García MD - 10/27/2020 EXAMINATION: XR CERVICAL SPINE 1 VIEW, XR CERVICAL SPINE 1 VIEW, XRCERVICAL SPINE 1 VIEW, XR CERVICAL SPINE 1 VIEW, XR CERVICAL SPINE 1 VIEW, XRCERVICAL SPINE 1 VIEW, XR CERVICAL SPINE 1 VIEW, XR CERVICAL SPINE 1 VIEW, XRCERVICAL SPINE 1 VIEW, XR CERVICAL SPINE 1 VIEW, XR CERVICAL SPINE 1 VIEW, XRCERVICAL SPINE 1 VIEW, XR CERVICAL SPINE 1 VIEW CLINICAL HISTORY: jumed facets; attempt at reductino COMPARISON: CT cervical spine 10/26/2020 TECHNIQUE: Sequential lateral radiographs of the cervical spine, with progressively increasing traction in 10 pound increments starting from 10pounds to 80 pounds then 4 radiographs with 90 pounds and final radiograph with0 pounds IMPRESSION FINDINGS/IMPRESSION: Redemonstrated grade 3 anterolisthesis of C6 over C7 with bilaterallocked facets. Sequential radiographs with progressive increased tractiondemonstrate mild progressively increased widening at C6-C7 intervertebral space (upto slightly greater than expected anatomical distance) without resultantreduction of the locked facets or listhesis. Final image with 0 pounds traction demonstrates slightly decreased intervertebral space compared to theweighted traction images. Thank you for letting us participate in the care of this patient. Forquestions regarding this report, please contact the number below. Alexandr Ramirez MD IMG DX ORDERABLES * XR Cervical Spine 1 View (10/27/2020 4:59 AM EST) Anatomical Region Laterality Modality C-spine N/A Digital Radiogra phy Impressions 10/27/2020 5:17 AM EST FINDINGS/IMPRESSION: Redemonstrated grade 3 anterolisthesis of C6 over C7 with bilateral locked facets. Sequential radiographs with progressive increased traction demonstrate mild progressively increased widening at C6-C7 intervertebral space (up to slightly greater than expected anatomical distance) without resultant reduction of the locked facets or listhesis. Final image with 0 pounds traction demonstrates slightly decreased intervertebral space compared to the weighted traction images. Thank you for letting us participate in the care of this patient. For questions regarding this report, please contact the number below. ? Electronically signed by: Allen García MD, [facility] ([phone]), at 10/27/2020 5:17 AM Narrative 10/27/2020 5:17 AM EST EXAMINATION: XR CERVICAL SPINE 1 VIEW, XR CERVICAL SPINE 1 VIEW, XR CERVICAL SPINE 1 VIEW, XR CERVICAL SPINE 1 VIEW, XR CERVICAL SPINE 1 VIEW, XR CERVICAL SPINE 1 VIEW, XR CERVICAL SPINE 1 VIEW, XR CERVICAL SPINE 1 VIEW, XR CERVICAL SPINE 1 VIEW, XR CERVICAL SPINE 1 VIEW, XR CERVICAL SPINE 1 VIEW, XR CERVICAL SPINE 1 VIEW, XR CERVICAL SPINE 1 VIEW CLINICAL HISTORY: jumed facets; attempt at reductino COMPARISON: CT cervical spine 10/26/2020 TECHNIQUE: Sequential lateral radiographs of the cervical spine, with progressively increasing traction in 10 pound increments starting from 10 pounds to 80 pounds then 4 radiographs with 90 pounds and final radiograph with 0 pounds Procedure Note Allen García MD - 10/27/2020 EXAMINATION: XR CERVICAL SPINE 1 VIEW, XR CERVICAL SPINE 1 VIEW, XRCERVICAL SPINE 1 VIEW, XR CERVICAL SPINE 1 VIEW, XR CERVICAL SPINE 1 VIEW, XRCERVICAL SPINE 1 VIEW, XR CERVICAL SPINE 1 VIEW, XR CERVICAL SPINE 1 VIEW, XRCERVICAL SPINE 1 VIEW, XR CERVICAL SPINE 1 VIEW, XR CERVICAL SPINE 1 VIEW, XRCERVICAL SPINE 1 VIEW, XR CERVICAL SPINE 1 VIEW CLINICAL HISTORY: jumed facets; attempt at reductino COMPARISON: CT cervical spine 10/26/2020 TECHNIQUE: Sequential lateral radiographs of the cervical spine, with progressively increasing traction in 10 pound increments starting from 10pounds to 80 pounds then 4 radiographs with 90 pounds and final radiograph with0 pounds IMPRESSION FINDINGS/IMPRESSION: Redemonstrated grade 3 anterolisthesis of C6 over C7 with bilaterallocked facets. Sequential radiographs with progressive increased tractiondemonstrate mild progressively increased widening at C6-C7 intervertebral space (upto slightly greater than expected anatomical distance) without resultantreduction of the locked facets or listhesis. Final image with 0 pounds traction demonstrates slightly decreased intervertebral space compared to theweighted traction images. Thank you for letting us participate in the care of this patient. Forquestions regarding this report, please contact the number below. Alexandr Ramirez MD IMG DX ORDERABLES * XR Cervical Spine 1 View (10/27/2020 4:59 AM EST) Anatomical Region Laterality Modality C-spine N/A Digital Radiogra phy Impressions 10/27/2020 5:17 AM EST FINDINGS/IMPRESSION: Redemonstrated grade 3 anterolisthesis of C6 over C7 with bilateral locked facets. Sequential radiographs with progressive increased traction demonstrate mild progressively increased widening at C6-C7 intervertebral space (up to slightly greater than expected anatomical distance) without resultant reduction of the locked facets or listhesis. Final image with 0 pounds traction demonstrates slightly decreased intervertebral space compared to the weighted traction images. Thank you for letting us participate in the care of this patient. For questions regarding this report, please contact the number below. ? Electronically signed by: Allen García MD, [facility] ([phone]), at 10/27/2020 5:17 AM Narrative 10/27/2020 5:17 AM EST EXAMINATION: XR CERVICAL SPINE 1 VIEW, XR CERVICAL SPINE 1 VIEW, XR CERVICAL SPINE 1 VIEW, XR CERVICAL SPINE 1 VIEW, XR CERVICAL SPINE 1 VIEW, XR CERVICAL SPINE 1 VIEW, XR CERVICAL SPINE 1 VIEW, XR CERVICAL SPINE 1 VIEW, XR CERVICAL SPINE 1 VIEW, XR CERVICAL SPINE 1 VIEW, XR CERVICAL SPINE 1 VIEW, XR CERVICAL SPINE 1 VIEW, XR CERVICAL SPINE 1 VIEW CLINICAL HISTORY: jumed facets; attempt at reductino COMPARISON: CT cervical spine 10/26/2020 TECHNIQUE: Sequential lateral radiographs of the cervical spine, with progressively increasing traction in 10 pound increments starting from 10 pounds to 80 pounds then 4 radiographs with 90 pounds and final radiograph with 0 pounds Procedure Note Allen García MD - 10/27/2020 EXAMINATION: XR CERVICAL SPINE 1 VIEW, XR CERVICAL SPINE 1 VIEW, XRCERVICAL SPINE 1 VIEW, XR CERVICAL SPINE 1 VIEW, XR CERVICAL SPINE 1 VIEW, XRCERVICAL SPINE 1 VIEW, XR CERVICAL SPINE 1 VIEW, XR CERVICAL SPINE 1 VIEW, XRCERVICAL SPINE 1 VIEW, XR CERVICAL SPINE 1 VIEW, XR CERVICAL SPINE 1 VIEW, XRCERVICAL SPINE 1 VIEW, XR CERVICAL SPINE 1 VIEW CLINICAL HISTORY: jumed facets; attempt at reductino COMPARISON: CT cervical spine 10/26/2020 TECHNIQUE: Sequential lateral radiographs of the cervical spine, with progressively increasing traction in 10 pound increments starting from 10pounds to 80 pounds then 4 radiographs with 90 pounds and final radiograph with0 pounds IMPRESSION FINDINGS/IMPRESSION: Redemonstrated grade 3 anterolisthesis of C6 over C7 with bilaterallocked facets. Sequential radiographs with progressive increased tractiondemonstrate mild progressively increased widening at C6-C7 intervertebral space (upto slightly greater than expected anatomical distance) without resultantreduction of the locked facets or listhesis. Final image with 0 pounds traction demonstrates slightly decreased intervertebral space compared to theweighted traction images. Thank you for letting us participate in the care of this patient. Forquestions regarding this report, please contact the number below. Alexandr Ramirez MD IMG DX ORDERABLES * XR Cervical Spine 1 View (10/27/2020 4:59 AM EST) Anatomical Region Laterality Modality C-spine N/A Digital Radiogra phy Impressions 10/27/2020 5:17 AM EST FINDINGS/IMPRESSION: Redemonstrated grade 3 anterolisthesis of C6 over C7 with bilateral locked facets. Sequential radiographs with progressive increased traction demonstrate mild progressively increased widening at C6-C7 intervertebral space (up to slightly greater than expected anatomical distance) without resultant reduction of the locked facets or listhesis. Final image with 0 pounds traction demonstrates slightly decreased intervertebral space compared to the weighted traction images. Thank you for letting us participate in the care of this patient. For questions regarding this report, please contact the number below. ? Electronically signed by: Allen García MD, [facility] ([phone]), at 10/27/2020 5:17 AM Narrative 10/27/2020 5:17 AM EST EXAMINATION: XR CERVICAL SPINE 1 VIEW, XR CERVICAL SPINE 1 VIEW, XR CERVICAL SPINE 1 VIEW, XR CERVICAL SPINE 1 VIEW, XR CERVICAL SPINE 1 VIEW, XR CERVICAL SPINE 1 VIEW, XR CERVICAL SPINE 1 VIEW, XR CERVICAL SPINE 1 VIEW, XR CERVICAL SPINE 1 VIEW, XR CERVICAL SPINE 1 VIEW, XR CERVICAL SPINE 1 VIEW, XR CERVICAL SPINE 1 VIEW, XR CERVICAL SPINE 1 VIEW CLINICAL HISTORY: jumed facets; attempt at reductino COMPARISON: CT cervical spine 10/26/2020 TECHNIQUE: Sequential lateral radiographs of the cervical spine, with progressively increasing traction in 10 pound increments starting from 10 pounds to 80 pounds then 4 radiographs with 90 pounds and final radiograph with 0 pounds Procedure Note Allen García MD - 10/27/2020 EXAMINATION: XR CERVICAL SPINE 1 VIEW, XR CERVICAL SPINE 1 VIEW, XRCERVICAL SPINE 1 VIEW, XR CERVICAL SPINE 1 VIEW, XR CERVICAL SPINE 1 VIEW, XRCERVICAL SPINE 1 VIEW, XR CERVICAL SPINE 1 VIEW, XR CERVICAL SPINE 1 VIEW, XRCERVICAL SPINE 1 VIEW, XR CERVICAL SPINE 1 VIEW, XR CERVICAL SPINE 1 VIEW, XRCERVICAL SPINE 1 VIEW, XR CERVICAL SPINE 1 VIEW CLINICAL HISTORY: jumed facets; attempt at reductino COMPARISON: CT cervical spine 10/26/2020 TECHNIQUE: Sequential lateral radiographs of the cervical spine, with progressively increasing traction in 10 pound increments starting from 10pounds to 80 pounds then 4 radiographs with 90 pounds and final radiograph with0 pounds IMPRESSION FINDINGS/IMPRESSION: Redemonstrated grade 3 anterolisthesis of C6 over C7 with bilaterallocked facets. Sequential radiographs with progressive increased tractiondemonstrate mild progressively increased widening at C6-C7 intervertebral space (upto slightly greater than expected anatomical distance) without resultantreduction of the locked facets or listhesis. Final image with 0 pounds traction demonstrates slightly decreased intervertebral space compared to theweighted traction images. Thank you for letting us participate in the care of this patient. Forquestions regarding this report, please contact the number below. Alexandr Ramirez MD IMG DX ORDERABLES * XR Cervical Spine 1 View (10/27/2020 4:59 AM EST) Anatomical Region Laterality Modality C-spine N/A Digital Radiogra phy Impressions 10/27/2020 5:17 AM EST FINDINGS/IMPRESSION: Redemonstrated grade 3 anterolisthesis of C6 over C7 with bilateral locked facets. Sequential radiographs with progressive increased traction demonstrate mild progressively increased widening at C6-C7 intervertebral space (up to slightly greater than expected anatomical distance) without resultant reduction of the locked facets or listhesis. Final image with 0 pounds traction demonstrates slightly decreased intervertebral space compared to the weighted traction images. Thank you for letting us participate in the care of this patient. For questions regarding this report, please contact the number below. ? Electronically signed by: Allen García MD, [facility] ([phone]), at 10/27/2020 5:17 AM Narrative 10/27/2020 5:17 AM EST EXAMINATION: XR CERVICAL SPINE 1 VIEW, XR CERVICAL SPINE 1 VIEW, XR CERVICAL SPINE 1 VIEW, XR CERVICAL SPINE 1 VIEW, XR CERVICAL SPINE 1 VIEW, XR CERVICAL SPINE 1 VIEW, XR CERVICAL SPINE 1 VIEW, XR CERVICAL SPINE 1 VIEW, XR CERVICAL SPINE 1 VIEW, XR CERVICAL SPINE 1 VIEW, XR CERVICAL SPINE 1 VIEW, XR CERVICAL SPINE 1 VIEW, XR CERVICAL SPINE 1 VIEW CLINICAL HISTORY: jumed facets; attempt at reductino COMPARISON: CT cervical spine 10/26/2020 TECHNIQUE: Sequential lateral radiographs of the cervical spine, with progressively increasing traction in 10 pound increments starting from 10 pounds to 80 pounds then 4 radiographs with 90 pounds and final radiograph with 0 pounds Procedure Note Allen García MD - 10/27/2020 EXAMINATION: XR CERVICAL SPINE 1 VIEW, XR CERVICAL SPINE 1 VIEW, XRCERVICAL SPINE 1 VIEW, XR CERVICAL SPINE 1 VIEW, XR CERVICAL SPINE 1 VIEW, XRCERVICAL SPINE 1 VIEW, XR CERVICAL SPINE 1 VIEW, XR CERVICAL SPINE 1 VIEW, XRCERVICAL SPINE 1 VIEW, XR CERVICAL SPINE 1 VIEW, XR CERVICAL SPINE 1 VIEW, XRCERVICAL SPINE 1 VIEW, XR CERVICAL SPINE 1 VIEW CLINICAL HISTORY: jumed facets; attempt at reductino COMPARISON: CT cervical spine 10/26/2020 TECHNIQUE: Sequential lateral radiographs of the cervical spine, with progressively increasing traction in 10 pound increments starting from 10pounds to 80 pounds then 4 radiographs with 90 pounds and final radiograph with0 pounds IMPRESSION FINDINGS/IMPRESSION: Redemonstrated grade 3 anterolisthesis of C6 over C7 with bilaterallocked facets. Sequential radiographs with progressive increased tractiondemonstrate mild progressively increased widening at C6-C7 intervertebral space (upto slightly greater than expected anatomical distance) without resultantreduction of the locked facets or listhesis. Final image with 0 pounds traction demonstrates slightly decreased intervertebral space compared to theweighted traction images. Thank you for letting us participate in the care of this patient. Forquestions regarding this report, please contact the number below. Alexandr Ramirez MD IMG DX ORDERABLES * XR Cervical Spine 1 View (10/27/2020 4:59 AM EST) Anatomical Region Laterality Modality C-spine N/A Digital Radiogra phy Impressions 10/27/2020 5:17 AM EST FINDINGS/IMPRESSION: Redemonstrated grade 3 anterolisthesis of C6 over C7 with bilateral locked facets. Sequential radiographs with progressive increased traction demonstrate mild progressively increased widening at C6-C7 intervertebral space (up to slightly greater than expected anatomical distance) without resultant reduction of the locked facets or listhesis. Final image with 0 pounds traction demonstrates slightly decreased intervertebral space compared to the weighted traction images. Thank you for letting us participate in the care of this patient. For questions regarding this report, please contact the number below. ? Electronically signed by: Allen García MD, [facility] ([phone]), at 10/27/2020 5:17 AM Narrative 10/27/2020 5:17 AM EST EXAMINATION: XR CERVICAL SPINE 1 VIEW, XR CERVICAL SPINE 1 VIEW, XR CERVICAL SPINE 1 VIEW, XR CERVICAL SPINE 1 VIEW, XR CERVICAL SPINE 1 VIEW, XR CERVICAL SPINE 1 VIEW, XR CERVICAL SPINE 1 VIEW, XR CERVICAL SPINE 1 VIEW, XR CERVICAL SPINE 1 VIEW, XR CERVICAL SPINE 1 VIEW, XR CERVICAL SPINE 1 VIEW, XR CERVICAL SPINE 1 VIEW, XR CERVICAL SPINE 1 VIEW CLINICAL HISTORY: jumed facets; attempt at reductino COMPARISON: CT cervical spine 10/26/2020 TECHNIQUE: Sequential lateral radiographs of the cervical spine, with progressively increasing traction in 10 pound increments starting from 10 pounds to 80 pounds then 4 radiographs with 90 pounds and final radiograph with 0 pounds Procedure Note Allen García MD - 10/27/2020 EXAMINATION: XR CERVICAL SPINE 1 VIEW, XR CERVICAL SPINE 1 VIEW, XRCERVICAL SPINE 1 VIEW, XR CERVICAL SPINE 1 VIEW, XR CERVICAL SPINE 1 VIEW, XRCERVICAL SPINE 1 VIEW, XR CERVICAL SPINE 1 VIEW, XR CERVICAL SPINE 1 VIEW, XRCERVICAL SPINE 1 VIEW, XR CERVICAL SPINE 1 VIEW, XR CERVICAL SPINE 1 VIEW, XRCERVICAL SPINE 1 VIEW, XR CERVICAL SPINE 1 VIEW CLINICAL HISTORY: jumed facets; attempt at reductino COMPARISON: CT cervical spine 10/26/2020 TECHNIQUE: Sequential lateral radiographs of the cervical spine, with progressively increasing traction in 10 pound increments starting from 10pounds to 80 pounds then 4 radiographs with 90 pounds and final radiograph with0 pounds IMPRESSION FINDINGS/IMPRESSION: Redemonstrated grade 3 anterolisthesis of C6 over C7 with bilaterallocked facets. Sequential radiographs with progressive increased tractiondemonstrate mild progressively increased widening at C6-C7 intervertebral space (upto slightly greater than expected anatomical distance) without resultantreduction of the locked facets or listhesis. Final image with 0 pounds traction demonstrates slightly decreased intervertebral space compared to theweighted traction images. Thank you for letting us participate in the care of this patient. Forquestions regarding this report, please contact the number below. Alexandr Ramirez MD IMG DX ORDERABLES * XR Cervical Spine 1 View (10/27/2020 4:59 AM EST) Anatomical Region Laterality Modality C-spine N/A Digital Radiogra phy Impressions 10/27/2020 5:17 AM EST FINDINGS/IMPRESSION: Redemonstrated grade 3 anterolisthesis of C6 over C7 with bilateral locked facets. Sequential radiographs with progressive increased traction demonstrate mild progressively increased widening at C6-C7 intervertebral space (up to slightly greater than expected anatomical distance) without resultant reduction of the locked facets or listhesis. Final image with 0 pounds traction demonstrates slightly decreased intervertebral space compared to the weighted traction images. Thank you for letting us participate in the care of this patient. For questions regarding this report, please contact the number below. ? Electronically signed by: Allen García MD, [facility] ([phone]), at 10/27/2020 5:17 AM Narrative 10/27/2020 5:17 AM EST EXAMINATION: XR CERVICAL SPINE 1 VIEW, XR CERVICAL SPINE 1 VIEW, XR CERVICAL SPINE 1 VIEW, XR CERVICAL SPINE 1 VIEW, XR CERVICAL SPINE 1 VIEW, XR CERVICAL SPINE 1 VIEW, XR CERVICAL SPINE 1 VIEW, XR CERVICAL SPINE 1 VIEW, XR CERVICAL SPINE 1 VIEW, XR CERVICAL SPINE 1 VIEW, XR CERVICAL SPINE 1 VIEW, XR CERVICAL SPINE 1 VIEW, XR CERVICAL SPINE 1 VIEW CLINICAL HISTORY: jumed facets; attempt at reductino COMPARISON: CT cervical spine 10/26/2020 TECHNIQUE: Sequential lateral radiographs of the cervical spine, with progressively increasing traction in 10 pound increments starting from 10 pounds to 80 pounds then 4 radiographs with 90 pounds and final radiograph with 0 pounds Procedure Note Allen García MD - 10/27/2020 EXAMINATION: XR CERVICAL SPINE 1 VIEW, XR CERVICAL SPINE 1 VIEW, XRCERVICAL SPINE 1 VIEW, XR CERVICAL SPINE 1 VIEW, XR CERVICAL SPINE 1 VIEW, XRCERVICAL SPINE 1 VIEW, XR CERVICAL SPINE 1 VIEW, XR CERVICAL SPINE 1 VIEW, XRCERVICAL SPINE 1 VIEW, XR CERVICAL SPINE 1 VIEW, XR CERVICAL SPINE 1 VIEW, XRCERVICAL SPINE 1 VIEW, XR CERVICAL SPINE 1 VIEW CLINICAL HISTORY: jumed facets; attempt at reductino COMPARISON: CT cervical spine 10/26/2020 TECHNIQUE: Sequential lateral radiographs of the cervical spine, with progressively increasing traction in 10 pound increments starting from 10pounds to 80 pounds then 4 radiographs with 90 pounds and final radiograph with0 pounds IMPRESSION FINDINGS/IMPRESSION: Redemonstrated grade 3 anterolisthesis of C6 over C7 with bilaterallocked facets. Sequential radiographs with progressive increased tractiondemonstrate mild progressively increased widening at C6-C7 intervertebral space (upto slightly greater than expected anatomical distance) without resultantreduction of the locked facets or listhesis. Final image with 0 pounds traction demonstrates slightly decreased intervertebral space compared to theweighted traction images. Thank you for letting us participate in the care of this patient. Forquestions regarding this report, please contact the number below. Alexandr Ramirez MD IMG DX ORDERABLES * XR Cervical Spine 1 View (10/27/2020 4:59 AM EST) Anatomical Region Laterality Modality C-spine N/A Digital Radiogra phy Impressions 10/27/2020 5:17 AM EST FINDINGS/IMPRESSION: Redemonstrated grade 3 anterolisthesis of C6 over C7 with bilateral locked facets. Sequential radiographs with progressive increased traction demonstrate mild progressively increased widening at C6-C7 intervertebral space (up to slightly greater than expected anatomical distance) without resultant reduction of the locked facets or listhesis. Final image with 0 pounds traction demonstrates slightly decreased intervertebral space compared to the weighted traction images. Thank you for letting us participate in the care of this patient. For questions regarding this report, please contact the number below. ? Electronically signed by: Allen García MD, [facility] ([phone]), at 10/27/2020 5:17 AM Narrative 10/27/2020 5:17 AM EST EXAMINATION: XR CERVICAL SPINE 1 VIEW, XR CERVICAL SPINE 1 VIEW, XR CERVICAL SPINE 1 VIEW, XR CERVICAL SPINE 1 VIEW, XR CERVICAL SPINE 1 VIEW, XR CERVICAL SPINE 1 VIEW, XR CERVICAL SPINE 1 VIEW, XR CERVICAL SPINE 1 VIEW, XR CERVICAL SPINE 1 VIEW, XR CERVICAL SPINE 1 VIEW, XR CERVICAL SPINE 1 VIEW, XR CERVICAL SPINE 1 VIEW, XR CERVICAL SPINE 1 VIEW CLINICAL HISTORY: jumed facets; attempt at reductino COMPARISON: CT cervical spine 10/26/2020 TECHNIQUE: Sequential lateral radiographs of the cervical spine, with progressively increasing traction in 10 pound increments starting from 10 pounds to 80 pounds then 4 radiographs with 90 pounds and final radiograph with 0 pounds Procedure Note Allen García MD - 10/27/2020 EXAMINATION: XR CERVICAL SPINE 1 VIEW, XR CERVICAL SPINE 1 VIEW, XRCERVICAL SPINE 1 VIEW, XR CERVICAL SPINE 1 VIEW, XR CERVICAL SPINE 1 VIEW, XRCERVICAL SPINE 1 VIEW, XR CERVICAL SPINE 1 VIEW, XR CERVICAL SPINE 1 VIEW, XRCERVICAL SPINE 1 VIEW, XR CERVICAL SPINE 1 VIEW, XR CERVICAL SPINE 1 VIEW, XRCERVICAL SPINE 1 VIEW, XR CERVICAL SPINE 1 VIEW CLINICAL HISTORY: jumed facets; attempt at reductino COMPARISON: CT cervical spine 10/26/2020 TECHNIQUE: Sequential lateral radiographs of the cervical spine, with progressively increasing traction in 10 pound increments starting from 10pounds to 80 pounds then 4 radiographs with 90 pounds and final radiograph with0 pounds IMPRESSION FINDINGS/IMPRESSION: Redemonstrated grade 3 anterolisthesis of C6 over C7 with bilaterallocked facets. Sequential radiographs with progressive increased tractiondemonstrate mild progressively increased widening at C6-C7 intervertebral space (upto slightly greater than expected anatomical distance) without resultantreduction of the locked facets or listhesis. Final image with 0 pounds traction demonstrates slightly decreased intervertebral space compared to theweighted traction images. Thank you for letting us participate in the care of this patient. Forquestions regarding this report, please contact the number below. Sergio Dhaliwal MD IMG DX ORDERABLES * XR Cervical Spine 1 View (10/27/2020 4:59 AM EST) Anatomical Region Laterality Modality C-spine N/A Digital Radiogra phy Impressions 10/27/2020 5:17 AM EST FINDINGS/IMPRESSION: Redemonstrated grade 3 anterolisthesis of C6 over C7 with bilateral locked facets. Sequential radiographs with progressive increased traction demonstrate mild progressively increased widening at C6-C7 intervertebral space (up to slightly greater than expected anatomical distance) without resultant reduction of the locked facets or listhesis. Final image with 0 pounds traction demonstrates slightly decreased intervertebral space compared to the weighted traction images. Thank you for letting us participate in the care of this patient. For questions regarding this report, please contact the number below. ? Electronically signed by: Allen García MD, [facility] ([phone]), at 10/27/2020 5:17 AM Narrative 10/27/2020 5:17 AM EST EXAMINATION: XR CERVICAL SPINE 1 VIEW, XR CERVICAL SPINE 1 VIEW, XR CERVICAL SPINE 1 VIEW, XR CERVICAL SPINE 1 VIEW, XR CERVICAL SPINE 1 VIEW, XR CERVICAL SPINE 1 VIEW, XR CERVICAL SPINE 1 VIEW, XR CERVICAL SPINE 1 VIEW, XR CERVICAL SPINE 1 VIEW, XR CERVICAL SPINE 1 VIEW, XR CERVICAL SPINE 1 VIEW, XR CERVICAL SPINE 1 VIEW, XR CERVICAL SPINE 1 VIEW CLINICAL HISTORY: jumed facets; attempt at reductino COMPARISON: CT cervical spine 10/26/2020 TECHNIQUE: Sequential lateral radiographs of the cervical spine, with progressively increasing traction in 10 pound increments starting from 10 pounds to 80 pounds then 4 radiographs with 90 pounds and final radiograph with 0 pounds Procedure Note Allen García MD - 10/27/2020 EXAMINATION: XR CERVICAL SPINE 1 VIEW, XR CERVICAL SPINE 1 VIEW, XRCERVICAL SPINE 1 VIEW, XR CERVICAL SPINE 1 VIEW, XR CERVICAL SPINE 1 VIEW, XRCERVICAL SPINE 1 VIEW, XR CERVICAL SPINE 1 VIEW, XR CERVICAL SPINE 1 VIEW, XRCERVICAL SPINE 1 VIEW, XR CERVICAL SPINE 1 VIEW, XR CERVICAL SPINE 1 VIEW, XRCERVICAL SPINE 1 VIEW, XR CERVICAL SPINE 1 VIEW CLINICAL HISTORY: jumed facets; attempt at reductino COMPARISON: CT cervical spine 10/26/2020 TECHNIQUE: Sequential lateral radiographs of the cervical spine, with progressively increasing traction in 10 pound increments starting from 10pounds to 80 pounds then 4 radiographs with 90 pounds and final radiograph with0 pounds IMPRESSION FINDINGS/IMPRESSION: Redemonstrated grade 3 anterolisthesis of C6 over C7 with bilaterallocked facets. Sequential radiographs with progressive increased tractiondemonstrate mild progressively increased widening at C6-C7 intervertebral space (upto slightly greater than expected anatomical distance) without resultantreduction of the locked facets or listhesis. Final image with 0 pounds traction demonstrates slightly decreased intervertebral space compared to theweighted traction images. Thank you for letting us participate in the care of this patient. Forquestions regarding this report, please contact the number below. Sergio Dhaliwal MD IMG DX ORDERABLES * XR Cervical Spine 1 View (10/27/2020 4:59 AM EST) Anatomical Region Laterality Modality C-spine N/A Digital Radiogra phy Impressions 10/27/2020 5:17 AM EST FINDINGS/IMPRESSION: Redemonstrated grade 3 anterolisthesis of C6 over C7 with bilateral locked facets. Sequential radiographs with progressive increased traction demonstrate mild progressively increased widening at C6-C7 intervertebral space (up to slightly greater than expected anatomical distance) without resultant reduction of the locked facets or listhesis. Final image with 0 pounds traction demonstrates slightly decreased intervertebral space compared to the weighted traction images. Thank you for letting us participate in the care of this patient. For questions regarding this report, please contact the number below. ? Electronically signed by: Allen García MD, [facility] ([phone]), at 10/27/2020 5:17 AM Narrative 10/27/2020 5:17 AM EST EXAMINATION: XR CERVICAL SPINE 1 VIEW, XR CERVICAL SPINE 1 VIEW, XR CERVICAL SPINE 1 VIEW, XR CERVICAL SPINE 1 VIEW, XR CERVICAL SPINE 1 VIEW, XR CERVICAL SPINE 1 VIEW, XR CERVICAL SPINE 1 VIEW, XR CERVICAL SPINE 1 VIEW, XR CERVICAL SPINE 1 VIEW, XR CERVICAL SPINE 1 VIEW, XR CERVICAL SPINE 1 VIEW, XR CERVICAL SPINE 1 VIEW, XR CERVICAL SPINE 1 VIEW CLINICAL HISTORY: jumed facets; attempt at reductino COMPARISON: CT cervical spine 10/26/2020 TECHNIQUE: Sequential lateral radiographs of the cervical spine, with progressively increasing traction in 10 pound increments starting from 10 pounds to 80 pounds then 4 radiographs with 90 pounds and final radiograph with 0 pounds Procedure Note Allen García MD - 10/27/2020 EXAMINATION: XR CERVICAL SPINE 1 VIEW, XR CERVICAL SPINE 1 VIEW, XRCERVICAL SPINE 1 VIEW, XR CERVICAL SPINE 1 VIEW, XR CERVICAL SPINE 1 VIEW, XRCERVICAL SPINE 1 VIEW, XR CERVICAL SPINE 1 VIEW, XR CERVICAL SPINE 1 VIEW, XRCERVICAL SPINE 1 VIEW, XR CERVICAL SPINE 1 VIEW, XR CERVICAL SPINE 1 VIEW, XRCERVICAL SPINE 1 VIEW, XR CERVICAL SPINE 1 VIEW CLINICAL HISTORY: jumed facets; attempt at reductino COMPARISON: CT cervical spine 10/26/2020 TECHNIQUE: Sequential lateral radiographs of the cervical spine, with progressively increasing traction in 10 pound increments starting from 10pounds to 80 pounds then 4 radiographs with 90 pounds and final radiograph with0 pounds IMPRESSION FINDINGS/IMPRESSION: Redemonstrated grade 3 anterolisthesis of C6 over C7 with bilaterallocked facets. Sequential radiographs with progressive increased tractiondemonstrate mild progressively increased widening at C6-C7 intervertebral space (upto slightly greater than expected anatomical distance) without resultantreduction of the locked facets or listhesis. Final image with 0 pounds traction demonstrates slightly decreased intervertebral space compared to theweighted traction images. Thank you for letting us participate in the care of this patient. Forquestions regarding this report, please contact the number below. Sergio Dhaliwal MD IMG DX ORDERABLES * (ABNORMAL) BLOOD GAS 2 ARTERIAL (10/27/2020 12:25 AM EST) pH, Arterial 7.33(L) 7.35 - 7.45 [facility] PCO2, Arterial 39 35 - 45 mmHg [facility] PO2, Arterial 75(L) 85 - 104 mmHg [facility] Bicarbonate, Arterial 19.9(L) 20.0 - 26.0 mmol/L [facility] Base Excess, Arterial -6.0(L) -3.0 - 3.0 mmol/L [facility] Hgb Blood Gas 13.7 13.7 - 16.5 gm/dL [facility] Oxyhemoglobin, Arterial 92.4(L) 94.0 - 97.0 % [facility] Carboxyhemoglob in, Arterial 0.4 % [facility] Comment: Nonsmokers: 0.5-1.5% COHB Smokers: Variable, but usually less than 10% Toxic: 20-30% COHB Lethal: Greater than 60% COHB Methemoglobin, Arterial 0.3 <=1.5 % [facility] Na Whole Blood 135 135 - 145 mmol/L [facility] K Whole Blood 3.9 3.5 - 5.0 mmol/L [facility] Comment: Please note: Patients with WBC >100,000 may have falsely elevated Potassium levels. Contact the Clinical Chemistry Laboratory if there are any questions. ICa Whole Blood 1.19 1.15 - 1.33 mmol/L [facility] Comment: Note: ??Total bilirubin higher than 20 mg/dL may lead to falsely low ionized calcium. CL Whole Blood 104 98 - 107 mmol/L [facility] Gluc Whole Bld 116 65 - 199 mg/dL [facility] Comment:Diabetes: >=200 mg/d L plus symptoms. Lactate WB 2.4(H) 0.5 - 2.2 mmol/L [facility] Blood specimen (specimen) 10/27/2020 12:25 AM EST 10/27/2020 12:25 AM EST Alexandr Ramirez MD POINT OF CARE TEST O RDERABLES [facility] [place] [address] * (ABNORMAL) BLOOD GAS 2 VENOUS (10/27/2020 12:14 AM EST) pH, Venous 7.31(L) 7.32 - 7.42 [facility] PCO2, Venous 40(L) 41 - 51 mmHg [facility] PO2, Venous 65(H) 25 - 40 mmHg [facility] Bicarbonate, Venous 19.3 mmol/L [facility] Base Excess, Venous -7.0 mmol/L [facility] Hgb Blood Gas 13.2(L) 13.7 - 16.5 gm/dL [facility] Oxyhemoglobin, Venous 88.7 % [facility] Carboxyhemoglob in, Venous 0.7 % [facility] Comment: Nonsmokers: 0.5-1.5% COHB Smokers: Variable, but usually less than 10% Toxic: 20-30% COHB Lethal: Greater than 60% COHB Methemoglobin, Venous 0.4 <=1.5 % [facility] Na Whole Blood 136 135 - 145 mmol/L [facility] K Whole Blood 3.9 3.5 - 5.0 mmol/L [facility] Comment: Please note: Patients with WBC >100,000 may have falsely elevated Potassium levels. Contact the Clinical Chemistry Laboratory if there are any questions. ICa Whole Blood 1.15 1.15 - 1.33 mmol/L [facility] Comment: Note: ??Total bilirubin higher than 20 mg/dL may lead to falsely low ionized calcium. CL Whole Blood 106 98 - 107 mmol/L [facility] Gluc Whole Bld 109 65 - 199 mg/dL [facility] Comment:Diabetes: >=200 mg/d L plus symptoms Lactate WB 2.5(H) 0.5 - 2.2 mmol/L [facility] Blood Gas Source Venous [facility] Blood specimen (specimen) 10/27/2020 12:14 AM EST 10/27/2020 12:14 AM EST Alexandr Ramirez MD POINT OF CARE TEST O RDERABLES [facility] [place] [address] * Urinalysis Microscopic Exam (10/26/2020 11:59 PM EST) RBC, Urine 2 0 - 3 /HPF [facility] WBC, Urine 1 0 - 3 /HPF [facility] Squamous Epithelial Cells Raw Data, Urine 2 <=4 /HPF [facility] Hyaline Casts, Urine 1 0 - 2 /LPF [facility] First stream urine specimen (specimen) 10/26/2020 11:59 PM EST 10/27/2020 12:26 AM EST Narrative Resulting Agency Comment Spec In Lab Adrienne Medellin MD URINE ORDERABLES [facility] [place] [address] * (ABNORMAL) Rapid Drug Screen w/o Confirmation, Urine (10/26/2020 11:59 PM EST) Barbiturates Screen, Urine None Detected None Detected [facility] Comment: The barbiturate screen detects barbiturates at concentrations >200 ng/mL. Note: Not all barbiturates cross-react equally with antibody used in this screen. A ? Presumptive Positive? result indicates that the screening result was positive but has not yet been confirmed by a highly-specific method. As with any screen, occasional false positive results from cross-reacting substances may occur. Not for Medico-Legal Purposes. Benzodiazepines Screen, Urine None Detected None Detected [facility] Comment: The benzodiazepines screen detects benzodiazepines at concentrations >100 ng/mL. Not all benzodiazepines cross-react equally with antibody used in this screen. Due to the low dosage of clonazepam, false negatives may be obtained due to low concentration of clonazepam metabolites. A ? Presumptive Positive? result indicates that the screening result was positive but has not yet been confirmed by a highly-specific method. As with any screen, occasional false positive results from cross-reacting substances may occur. Not for Medico-Legal Purposes. Cocaine Screen, Urine None Detected None Detected [facility] Comment: The cocaine metabolites screen detects benzoylecgonine (Cocaine Metabolite) at concentrations >150 ng/mL. A ? Presumptive Positive? result indicates that the screening result was positive but has not yet been confirmed by a highly-specific method. As with any screen, occasional false positive results from cross-reacting substances may occur. Not for Medico-Legal Purposes. Methadone Metabolites Screen, Urine None Detected None Detected [facility] Comment: The methadone metabolite screen detects EDDP (major methadone metabolite) at concentrations >100 ng/mL. A ? Presumptive Positive? result indicates that the screening result was positive but has not yet been confirmed by a highly-specific method. As with any screen, occasional false positive results from cross-reacting substances may occur. Not for Medico-Legal Purposes. Opiate Screen, Urine None Detected None Detected [facility] Comment: The opiates screen detects opiates at concentrations >300 ng/mL. Please note that oxycodone, oxymorphone, fentanyl, tramadol, and other synthetic opioids are not detected by the opiate screen. A ? Presumptive Positive? result indicates that the screening result was positive but has not yet been confirmed by a highly-specific method. As with any screen, occasional false positive results from cross-reacting substances may occur. Not for Medico-Legal Purposes. Cannabinoid Screen, Urine Presumptive Pos(A) None Detected [facility] Comment: The marijuana metabolites screen detects the THC metabolite (61-gmz-4-carboxy-delta 9-THC) at concentrations >20 ng/mL. A ? Presumptive Positive? result indicates that the screening result was positive but has not yet been confirmed by a highly-specific method. As with any screen, occasional false positive results from cross-reacting substances may occur. Not for Medico-Legal Purposes. Oxycodone Screen, Urine None Detected None Detected [facility] Comment: The oxycodone screen detects oxycodone and oxymorphone at concentrations >100 ng/mL. A ? Presumptive Positive? result indicates that the screening result was positive but has not yet been confirmed by a highly-specific method. As with any screen, occasional false positive results from cross-reacting substances may occur. Not for Medico-Legal Purposes. Buprenorphine Screen, Urine None Detected None Detected [facility] Comment: The buprenorphine screen detects buprenorphine at concentrations >5 ng/mL. A ? Presumptive Positive? result indicates that the screening result was positive but has not yet been confirmed by a highly-specific method. As with any screen, occasional false positive results from cross-reacting substances may occur. Not for Medico-Legal Purposes. Fentanyl Screen, Urine None Detected None Detected [facility] Comment: The fentanyl screen detects fentanyl at concentrations >2 ng/mL. A ? Presumptive Positive? result indicates that the screening result was positive but has not yet been confirmed by a highly-specific method. As with any screen, occasional false positive results from cross-reacting substances may occur. Not for Medico-Legal Purposes. Tricyclics Screen, Urine None Detected None Detected [facility] Comment: The tricyclics screen detects tricyclic antidepressants at concentrations >150 ng/mL. Not all tricyclics cross-react equally with the antibody used in this screen. A ? Presumptive Positive? result indicates that the screening result was positive but has not yet been confirmed by a highly-specific method. As with any screen, occasional false positive results from cross-reacting substances may occur. Not for Medico-Legal Purposes. Ethanol Screen, Urine Positive(A) None Detected [facility] Comment:This urine ethanol a ssay detects ethanol at concentrations >/= 100 mg/L. Amphetamines Screen, Urine None Detected None Detected [facility] Comment: The amphetamine screen detects d-amphetamine and d-methamphetamine at concentrations >300 ng/mL. A ? Presumptive Positive? result indicates that the screening result was positive but has not yet been confirmed by a highly-specific method. As with any screen, occasional false positive results from cross-reacting substances may occur. Not for Medico-Legal Purposes. Adulterants Screen, Urine None Detected None Detected [facility] Comment: No adulteration or dilution of this urine sample was detected. All urine samples submitted for urine drugs of abuse analysis are tested for creatinine concentration, pH, and for the presence of oxidants, nitrites, and chromate. Urine specimen (specimen) 10/26/2020 11:59 PM EST 10/27/2020 12:26 AM EST Narrative Resulting Agency Comment Spec In Lab Adrienne Medellin MD CHEMISTRY ORDERABLES [facility] [place] [address] * (ABNORMAL) Urinalysis with reflex Culture (10/26/2020 11:59 PM EST) Glucose, Urine Dipstick Negative Negative mg/dL [facility] Protein, Urine Dipstick Trace(A) Negative mg/dL [facility] Bilirubin, Urine Dipstick Negative Negative mg/dL [facility] Comment: Clinical correlation required for positive Urine Bilirubin results as false positive may occur with some drugs and drug related products. If a false positive is suspected a serum total bilirubin should be considered if clinically indicated. Urobilinogen, Urine Dipstick Normal Normal mg/dL [facility] pH, Urn (dipstick) 5.5 5.0 - 8.0 [facility] Blood, Urine Dipstick Large(A) Negative mg/dL [facility] Ketone, Urine Dipstick Negative Negative mg/dL [facility] Nitrite, Urine Dipstick Negative Negative [facility] Leukocytes, Urine Dipstick Negative Negative [facility] Appearance, Urine Dipstick Clear Clear [facility] Specific [place] Urine Automated >=1.030(A) 1.006 - 1.030 [facility] Color, Urine Dipstick Yellow Yellow [facility] Reflex to Culture No [facility] First stream urine specimen (specimen) 10/26/2020 11:59 PM EST 10/27/2020 12:26 AM EST Narrative Resulting Agency Comment Spec In Lab Luann Hartley MD URINE ORDERABLES Performing Organization Address City/State/[facility] Co de Phone Number [facility] [place] [address] * Rapid Drug Screen, Urine (LALITA Request) (10/26/2020 11:59 PM EST) LALITA Conf Requested No [facility] Comment: Collection date/time has been modified to: 23:59:00. ??Previous collection date/time: 23:19:00. Corrected from No [NA] on 10/27/20 0:26:49 EST by Maria E Moses Requested See Comment [facility] Comment: Refer to Rapid Drug Screen w/o Confirmation, Urine for results. Collection date/time has been modified to: 23:59:00. ??Previous collection date/time: 23:19:00. Corrected from See Comment [NA] on 10/27/20 0:26:49 EST by Maria E Moses Urine specimen (specimen) 10/26/2020 11:59 PM EST 10/27/2020 12:26 AM EST Narrative Resulting Agency Comment Spec In Lab Luann Hartley MD URINE ORDERABLES Performing Organization Address City/State/[facility] Co de Phone Number [facility] [place] [address] * CT Angiogram Carotids (10/26/2020 11:46 PM EST) Anatomical Region Laterality Modality Neck, Head Computed Tomogra phy Impressions 10/27/2020 12:38 AM EST 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 No acute intracranial hemorrhage or depressed calvarial fracture identified. Unremarkable CTA neck. Thank you for letting us participate in the care of this patient. For questions regarding this report, please contact the number below. ? Narrative 10/27/2020 12:38 AM EST EXAMINATION: REQUEST FOR 2ND READ CT HEAD AND SPINE, CT ANGIOGRAM CAROTIDS CLINICAL HISTORY: trauma found down; What Modality is the exam? CT Scan; Body Part (please add comments as necessary): Head and C spine; Sending Institution [facility]; Date of exam 20201026; I believe a reinterpretation of this exam may alter care of Patient. Yes FALL, PARALYISIS TECHNIQUE: * ??Reinterpretation request for outside noncontrast CT head and cervical spine. * ??CT angiography neck; 65 cc Omnipaque 350 intravenously administered. MIP reconstructions submitted. Please note, curved reformats of the carotid/vertebral arteries are not provided precluding accurate assessment and diminishing sensitivity for potential pathology detection. COMPARISON: None FINDINGS: HEAD: Welch-white interfaces appear relatively well differentiated. No acute intracranial hemorrhage identified. No significant mass effect appreciated. Included paranasal sinuses demonstrate scattered mucosal thickening. Included mastoid air cells appear well-aerated. Calvarium appears intact. Debris/cerumen within the RIGHT external auditory canal. CERVICAL SPINE: Grade 3 anterolisthesis of C6 over C7 with uncovering of disc space posteriorly and bilateral C6-C7 locked facets; associated spinal canal and probably cord deformity and regional ligamentous injuries as well as disc injury. Regional prevertebral soft tissue swelling at this level. Probable tiny fractures at the uppermost tips of the C7 superior facets. Indurative changes within the dorsal soft tissues. Multilevel degenerative changes/spondylosis. CTA NECK: Assessment is partially limited due to some motion artifact as well as streak artifact from dental amalgam. Patent aortic arch branch vessel origins, with common origin of the innominate and LEFT common carotid arteries. Atheromatous changes about the carotid bifurcation/bulb. Patent cervical carotid and vertebral arteries. Procedure Note Allen García MD - 10/27/2020 EXAMINATION: REQUEST FOR 2ND READ CT HEAD AND SPINE, CT ANGIOGRAMCAROTIDS CLINICAL HISTORY: trauma found down; What Modality is the exam? CT Scan;Body Part (please add comments as necessary): [facility] Date of exam 20201026; I believe a reinterpretation of this exam mayalter care of Patient. Yes FALL, PARALYISIS TECHNIQUE: * Reinterpretation request for outside noncontrast CT head and cervicalspine. * CT angiography neck; 65 cc Omnipaque 350 intravenously administered.MIP reconstructions submitted. Please note, curved reformats of the carotid/vertebral arteries are not provided precluding accurate assessmentand diminishing sensitivity for potential pathology detection. COMPARISON: None FINDINGS: HEAD: Welch-white interfaces appear relatively well differentiated. No acute intracranial hemorrhage identified. No significant mass effect appreciated. Included paranasal sinuses demonstrate scattered mucosal thickening. Included mastoid air cells appear well-aerated. Calvarium appears intact. Debris/cerumen within the RIGHT external auditory canal. CERVICAL SPINE: Grade 3 anterolisthesis of C6 over C7 with uncovering of disc spaceposteriorly and bilateral C6-C7 locked facets; associated spinal canal and probablycord deformity and regional ligamentous injuries as well as disc injury.Regional prevertebral soft tissue swelling at this level. Probable tiny fracturesat the uppermost tips of the C7 superior facets. Indurative changes within thedorsal soft tissues. Multilevel degenerative changes/spondylosis. CTA NECK: Assessment is partially limited due to some motion artifact as well asstreak artifact from dental amalgam. Patent aortic arch branch vessel origins,with common origin of the innominate and LEFT common carotid arteries.Atheromatous changes about the carotid bifurcation/bulb. Patent cervical carotid and vertebral arteries. IMPRESSION Grade 3 anterolisthesis of C6 over C7 with bilateral C6-C7 locked facetsand associated spinal canal deformity/narrowing as well as likely cord,ligamentous, and disc injury; regional prevertebral soft tissue swelling at this levelmildly narrows the airway. No acute intracranial hemorrhage or depressed calvarial fractureidentified. Unremarkable CTA neck. Thank you for letting us participate in the care of this patient. Forquestions regarding this report, please contact the number below. Luann Hartley MD IM CT ORDERABLES * Request For 2nd Read CT Head And Spine (10/26/2020 11:34 PM EST) Anatomical Region Laterality Modality Head, C-spine, T-spine, L-spine SO Impressions 10/27/2020 12:38 AM EST 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 No acute intracranial hemorrhage or depressed calvarial fracture identified. Unremarkable CTA neck. Thank you for letting us participate in the care of this patient. For questions regarding this report, please contact the number below. ? Electronically signed by: Allen García MD, [facility] ([phone]), at 10/27/2020 12:38 AM Narrative 10/27/2020 12:38 AM EST EXAMINATION: REQUEST FOR 2ND READ CT HEAD AND SPINE, CT ANGIOGRAM CAROTIDS CLINICAL HISTORY: trauma found down; What Modality is the exam? CT Scan; Body Part (please add comments as necessary): Head and C spine; Sending Institution [facility]; Date of exam 20201026; I believe a reinterpretation of this exam may alter care of Patient. Yes FALL, PARALYISIS TECHNIQUE: * ??Reinterpretation request for outside noncontrast CT head and cervical spine. * ??CT angiography neck; 65 cc Omnipaque 350 intravenously administered. MIP reconstructions submitted. Please note, curved reformats of the carotid/vertebral arteries are not provided precluding accurate assessment and diminishing sensitivity for potential pathology detection. COMPARISON: None FINDINGS: HEAD: Welch-white interfaces appear relatively well differentiated. No acute intracranial hemorrhage identified. No significant mass effect appreciated. Included paranasal sinuses demonstrate scattered mucosal thickening. Included mastoid air cells appear well-aerated. Calvarium appears intact. Debris/cerumen within the RIGHT external auditory canal. CERVICAL SPINE: Grade 3 anterolisthesis of C6 over C7 with uncovering of disc space posteriorly and bilateral C6-C7 locked facets; associated spinal canal and probably cord deformity and regional ligamentous injuries as well as disc injury. Regional prevertebral soft tissue swelling at this level. Probable tiny fractures at the uppermost tips of the C7 superior facets. Indurative changes within the dorsal soft tissues. Multilevel degenerative changes/spondylosis. CTA NECK: Assessment is partially limited due to some motion artifact as well as streak artifact from dental amalgam. Patent aortic arch branch vessel origins, with common origin of the innominate and LEFT common carotid arteries. Atheromatous changes about the carotid bifurcation/bulb. Patent cervical carotid and vertebral arteries. Procedure Note Allen García MD - 10/27/2020 EXAMINATION: REQUEST FOR 2ND READ CT HEAD AND SPINE, CT ANGIOGRAMCAROTIDS CLINICAL HISTORY: trauma found down; What Modality is the exam? CT Scan;Body Part (please add comments as necessary): Head and C spine; [facility]; Date of exam 20201026; I believe a reinterpretation of this exam mayalter care of Patient. Yes FALL, PARALYISIS TECHNIQUE: * Reinterpretation request for outside noncontrast CT head and cervicalspine. * CT angiography neck; 65 cc Omnipaque 350 intravenously administered.MIP reconstructions submitted. Please note, curved reformats of the carotid/vertebral arteries are not provided precluding accurate assessmentand diminishing sensitivity for potential pathology detection. COMPARISON: None FINDINGS: HEAD: Welch-white interfaces appear relatively well differentiated. No acute intracranial hemorrhage identified. No significant mass effect appreciated. Included paranasal sinuses demonstrate scattered mucosal thickening. Included mastoid air cells appear well-aerated. Calvarium appears intact. Debris/cerumen within the RIGHT external auditory canal. CERVICAL SPINE: Grade 3 anterolisthesis of C6 over C7 with uncovering of disc spaceposteriorly and bilateral C6-C7 locked facets; associated spinal canal and probablycord deformity and regional ligamentous injuries as well as disc injury.Regional prevertebral soft tissue swelling at this level. Probable tiny fracturesat the uppermost tips of the C7 superior facets. Indurative changes within thedorsal soft tissues. Multilevel degenerative changes/spondylosis. CTA NECK: Assessment is partially limited due to some motion artifact as well asstreak artifact from dental amalgam. Patent aortic arch branch vessel origins,with common origin of the innominate and LEFT common carotid arteries.Atheromatous changes about the carotid bifurcation/bulb. Patent cervical carotid and vertebral arteries. IMPRESSION Grade 3 anterolisthesis of C6 over C7 with bilateral C6-C7 locked facetsand associated spinal canal deformity/narrowing as well as likely cord,ligamentous, and disc injury; regional prevertebral soft tissue swelling at this levelmildly narrows the airway. No acute intracranial hemorrhage or depressed calvarial fractureidentified. Unremarkable CTA neck. Thank you for letting us participate in the care of this patient. Forquestions regarding this report, please contact the number below. Luann Hartley MD IMG OUTSIDE INTERPRE TATION ORDERABLES * Request For 2nd Read CT Chest Abdomen Pelvis (10/26/2020 11:33 PM EST) Anatomical Region Laterality Modality Chest, Abdomen, Pelvis SO Impressions 10/27/2020 2:07 AM EST No acute injury identified. Nonspecific small lytic foci within the iliac bones. Preliminary report signed by: Jeffrey Gilbert at 10/27/2020 1:33 AM I have personally reviewed the image(s) and the resident's interpretation and agree with the findings, Allen García MD at 10/27/2020 2:07 AM Thank you for letting us participate in the care of this patient. For questions regarding this report, please contact the number below. ? Electronically signed by: Allen García MD, [facility] ([phone]), at 10/27/2020 2:07 AM Narrative 10/27/2020 2:07 AM EST EXAMINATION: REQUEST FOR 2ND READ CT CHEST ABDOMEN PELVIS INSTITUTION WHERE STUDY PERFORMED: [facility] DATE AND TIME OF STUDY: 10/26/2020 20:52 CLINICAL HISTORY: trauma found down; What Modality is the exam? CT Scan; Body Part (please add comments as necessary): Chest abdomen pelvis; Sending Institution [facility]; Date of exam 20201026; I believe a reinterpretation of this exam may alter care of Patient. Yes TECHNIQUE: Reinterpretation request for outside: * ??CT chest/abdomen/pelvis with intravenous contrast. Absence of enteric contrast renders suboptimal assessment of bowel lumen and surrounding soft tissue structures/viscera. * ??CT thoracic spine reconstructions. * ??CT lumbar spine reconstructions. COMPARISON: None FINDINGS: Streak artifact from patient's arms at the sides as well as patient motion artifact degrades image quality rendering suboptimal assessment; within these confines: CHEST: Lungs/Pleura: Hypoventilatory dependent changes. Mediastinum/Idania: Unremarkable. Cardiovascular: Coronary artery calcifications are present. ABDOMEN/PELVIS: Liver: Nonspecific small coarse calcification along the RIGHT lateral edge. Gallbladder: Unremarkable. Spleen: Unremarkable. Pancreas: Unremarkable. Adrenal Glands: Unremarkable. RIGHT Kidney: Unremarkable. LEFT Kidney: Unremarkable. Urinary Bladder: Unremarkable. GI: The stomach is distended and fluid-filled. There are multiple loops of nondilated small bowel containing fluid with a few scattered air fluid levels. Mesentery/Peritoneum: Unremarkable. Lymphatic System: Unremarkable. Vasculature: Unremarkable. Nonspinal Osseous Structures: No acute abnormality identified. Nonspecific small lytic foci within the iliac bones. Thoracic spine: No acute fracture or traumatic malalignment appreciated. Lumbar spine: No acute fracture or traumatic malalignment appreciated. Degenerative changes/spondylosis, most prominent at the lower levels. Procedure Note Allen García MD - 10/27/2020 EXAMINATION: REQUEST FOR 2ND READ CT CHEST ABDOMEN PELVIS INSTITUTION WHERE STUDY PERFORMED: [facility] DATE AND TIME OF STUDY: 10/26/2020 20:52 CLINICAL HISTORY: trauma found down; What Modality is the exam? CT Scan;Body Part (please add comments as necessary): Chest abdomen pelvis; Sending Institution [facility]; Date of exam 20201026; I believe a reinterpretation ofthis exam may alter care of Patient. Yes TECHNIQUE: Reinterpretation request for outside: * CT chest/abdomen/pelvis with intravenous contrast. Absence of enteric contrast renders suboptimal assessment of bowel lumen and surroundingsoft tissue structures/viscera. * CT thoracic spine reconstructions. * CT lumbar spine reconstructions. COMPARISON: None FINDINGS: Streak artifact from patient's arms at the sides as well as patientmotion artifact degrades image quality rendering suboptimal assessment; withinthese confines: CHEST: Lungs/Pleura: Hypoventilatory dependent changes. Mediastinum/Idania: Unremarkable. Cardiovascular: Coronary artery calcifications are present. ABDOMEN/PELVIS: Liver: Nonspecific small coarse calcification along the RIGHT lateraledge. Gallbladder: Unremarkable. Spleen: Unremarkable. Pancreas: Unremarkable. Adrenal Glands: Unremarkable. RIGHT Kidney: Unremarkable. LEFT Kidney: Unremarkable. Urinary Bladder: Unremarkable. GI: The stomach is distended and fluid-filled. There are multiple loopsof nondilated small bowel containing fluid with a few scattered air fluidlevels. Mesentery/Peritoneum: Unremarkable. Lymphatic System: Unremarkable. Vasculature: Unremarkable. Nonspinal Osseous Structures: No acute abnormality identified. Nonspecificsmall lytic foci within the iliac bones. Thoracic spine: No acute fracture or traumatic malalignment appreciated. Lumbar spine: No acute fracture or traumatic malalignment appreciated. Degenerative changes/spondylosis, most prominent at the lower levels. IMPRESSION No acute injury identified. Nonspecific small lytic foci within the iliac bones. Preliminary report signed by: Jeffrey Gilbert at 10/27/2020 1:33 AM I have personally reviewed the image(s) and the resident's interpretationand agree with the findings, Allen García MD at 10/27/2020 2:07 AM Thank you for letting us participate in the care of this patient. Forquestions regarding this report, please contact the number below. Authorizing Provider Result Danette Hartley MD IMG OUTSIDE INTERPRE TATION ORDERABLES * (ABNORMAL) L-Lactate2 Whole Blood (10/26/2020 11:31 PM EST) [facility] Lactate WB 2.7(H) 0.5 - 2.2 mmol/L [facility] Blood specimen (specimen) 10/26/2020 11:31 PM EST 10/26/2020 11:31 PM EST Narrative Authorizing Provider Result Danette Hartley MD CHEMISTRY ORDERABLES [facility] [place] [place] [address] * ABORH Recheck Status (10/26/2020 11:10 PM EST) ABORH Recheck Order Order Placed [facility] ABORH Type Recheck Not Performed [facility] Blood specimen (specimen) 10/26/2020 11:10 PM EST 10/26/2020 11:28 PM EST Narrative Resulting Agency Comment Spec In Lab Adrienne Medellin MD BLOOD BANK LAB ORDER LORNA Performing Organization Address City/[facility]/ZIP Co de Phone Number [facility] [place] [address] * Gold Tube HOLD (10/26/2020 11:10 PM EST) Gold Hold Sample in lab. [facility] Blood specimen (specimen) Venous Draw / Unknown 10/26/2020 11:10 PM EST 10/26/2020 11:34 PM EST Adrienne Medellin MD CHEMISTRY ORDERABLES Performing Organization Address City/[facility]/ZIP Co de Phone Number [facility] [place] [address] * Antibody screen (10/26/2020 11:10 PM EST) Ab Screen Interp Negative [facility] Expires at [id number] on: 10/29/2020 [facility] Blood specimen (specimen) 10/26/2020 11:10 PM EST 10/26/2020 11:28 PM EST Narrative Resulting Agency Comment Spec In Lab Adrienne Medellin MD BLOOD BANK LAB ORDER LORNA Performing Organization Address City/[facility]/ZIP Co de Phone Number [facility] [place] [address] * ABO/Rh Typing (10/26/2020 11:10 PM EST) ABORH Type AB Pos [facility] Blood specimen (specimen) 10/26/2020 11:10 PM EST 10/26/2020 11:28 PM EST Narrative Resulting Agency Comment Spec In Lab Adrienne Medellin MD BLOOD BANK LAB ORDER LORNA Performing Organization Address City/[facility]/[place] [address] * (ABNORMAL) Differential, Automated (10/26/2020 11:10 PM EST) Neutrophil % 85.4 % [facility] Neutrophil Absolute 11.41(H) 1.70 - 6.10 x10(3)/mc L [facility] Lymph % 9.3 % [facility] Lymphocytes Abs 1.2 0.9 - 3.2 x10(3)/ L [facility] Monocyte % 4.3 % [facility] Monocyte Abs 0.6 0.3 - 0.9 x10(3)/ L [facility] Eos % 0.3 % [facility] Eosinophils Abs 0.0 0.0 - 0.4 x10(3)/ L [facility] Basophil % 0.2 % [facility] Baso Absolute 0.0 0.0 - 0.1 x10(3)/ L [facility] Immature Gran % 0.50 % [facility] Comment: Immature granulocytes(IG's)percentage and absolute count will include metamyelocytes, myelocytes, and promyelocytes. Blood smears from CBCs yielding IG's will be scanned manually for concordance. If this scan disagrees with the automated IG or if promyelocytes are noted, a manual differential will be performed. Immature Gran Absolute 0.07(H) 0.00 - 0.04 x10(3)/ L [facility] Blood specimen (specimen) 10/26/2020 11:10 PM EST 10/26/2020 11:31 PM EST Narrative Resulting Agency Comment Spec In Lab Adrienne Medellin MD HEMATOLOGY ORDERABLE S Performing Organization Address City/[facility]/ZIP Co de Phone Number [facility] [place] [address] * (ABNORMAL) Hemogram (10/26/2020 11:10 PM EST) White Blood Cell 13.4(H) 4.0 - 9.5 x10(3)/[facility] Red Blood Cell 4.08(L) 4.58 - 5.54 x10(6)/[facility] Hemoglobin 12.4(L) 13.7 - 16.5 gm/dL [facility] Hematocrit 36.7(L) 40.5 - 48.5 % [facility] Mean Cell Volume 90.0 82.9 - 93.1 fL [facility] Mean Cell Hemoglobin 30.4 27.5 - 32.1 pg [facility] Mean Cell Hemoglobin Concentration 33.8 32.0 - 35.7 gm/dL [facility] Platelet 188 145 - 357 x10(3)/[facility] RDW Standard Deviation 41.0 36.0 - 45.0 [facility] RDW coefficient of variation 12.4 11.4 - 13.8 % [facility] Mean Platelet Volume 10.9 7.6 - 12.9 [facility] NRBC% auto 0.0 % [facility] NRBC Absolute 0.000 0.000 - 0.000 x10(3)/[facility] Blood specimen (specimen) 10/26/2020 11:10 PM EST 10/26/2020 11:31 PM EST Narrative Resulting Agency Comment Spec In Lab Adrienne Medellin MD HEMATOLOGY ORDERABLE S [facility] [place] [address] * (ABNORMAL) Ethanol Level (10/26/2020 11:10 PM EST) Pathologist [facility] Ethanol 1,893(H) <=99 mg/L [facility] Comment: Greater than 800 mg/L (0.08%) should be considered intoxicated. 3400 to 4500 mg/L (0.34 - 0.45%) is considered severe intoxication. Greater than 5500 mg/L (0.55%) is usually fatal. Blood specimen (specimen) 10/26/2020 11:10 PM EST 10/26/2020 11:31 PM EST Narrative Resulting Agency Comment Spec In Lab Luann Hartley MD CHEMISTRY ORDERABLES Performing Organization Address [facility] de Phone Number [facility] [place] [address] * (ABNORMAL) APTT (10/26/2020 11:10 PM EST) Partial Thromboplastin Time 22(L) 25 - 37 sec [facility] Comment: Decreased clotting times may be caused by improper phlebotomy technique. The PTT is NOT appropriate for heparin monitoring. Use the Anti-Xa level for heparin monitoring (HEP UFH) or LMWH monitoring (HEP LMW). A PTT less than 37 seconds generally indicates adequate hemostasis. Blood specimen (specimen) 10/26/2020 11:10 PM EST 10/26/2020 11:31 PM EST Narrative Resulting Agency Comment Spec In Lab Authorizing Provider Result Danette Hartley MD HEMATOLOGY ORDERABLE S Performing Organization Address [facility] de Phone Number [facility] [place] [address] * Prothrombin Time (10/26/2020 11:10 PM EST) Prothrombin Time 11.1 9.4 - 12.5 sec [facility] International Normalization Ratio 1.0 [facility] Comment: An INR <2.0 indicates adequate procoagulant activity for hemostasis in most patients without underlying bleeding disorders, though the INR may not adequately reflect hemostatic capacity in patients with liver disease and synthetic impairment. The recommended target INR range for therapeutic anticoagulation is 2.0 ? 3.0 for most applications, though lower and higher ranges may be appropriate depending on clinical circumstances. Blood specimen (specimen) 10/26/2020 11:10 PM EST 10/26/2020 11:31 PM EST Narrative Resulting Agency Comment Spec In Lab Luann Hartley MD HEMATOLOGY ORDERABLE S [facility] [place] [address] * (ABNORMAL) Basic Metabolic Panel (non-fasting) (10/26/2020 11:10 PM EST) Glucose 133 65 - 199 mg/dL [facility] Comment:Diabetes: >=200 mg/d L plus symptoms Blood Urea Nitrogen 15 10 - 20 mg/dL [facility] Creatinine 1.43 0.80 - 1.50 mg/dL [facility] Sodium 138 135 - 145 mmol/L [facility] Potassium 4.1 3.5 - 5.0 mmol/L [facility] Comment: Please note: ??Patients with WBC >100,000 may have falsely elevated Potassium levels. ??For accurate Potassium quantification in these patients send serum separator tube (gold top) for subsequent determinations. ??Contact the Clinical Chemistry Laboratory if there are any questions. Chloride 104 98 - 107 mmol/L [facility] Carbon Dioxide 20(L) 22 - 31 mmol/L [facility] Anion Gap 14 5 - 15 mmol/L [facility] Calcium 8.4(L) 8.5 - 10.5 mg/dL [facility] Est Glomerular Filtration Rate 56(L) >=60 mL/min/1. 73 m?? [facility] Comment: This patient? s estimated glomerular filtration rate (eGFR) is between 56 mL/min/1.73 m2 (patients with less muscle mass per kg body weight) and 64 mL/min/1.73 m2 (patients with more muscle mass per kg body weight) as determined by the CKD-EPI equation. Assessment of eGFR is not appropriate when creatinine concentrations are rapidly changing. For clinical decisions where creatinine clearance will affect therapy, a 24-hour urine creatinine clearance may be advised. Assignment of CKD stage 1 ? 5 for patients with an eGFR near the transition point between stages may be based on clinical assessment of muscle mass and symptoms in addition to eGFR. Blood specimen (specimen) 10/26/2020 11:10 PM EST 10/26/2020 11:31 PM EST Narrative Resulting Agency Comment Spec In Lab Luann Hartley MD CHEMISTRY ORDERABLES [facility] [place] [address] * COVID-19 PCR (10/26/2020 10:58 PM EST) SARS-CoV-2 RNA (Rapid) Not Detected Not Detected [facility] Comment: This result should be interpreted in combination with the clinical observations, patient history and epidemiological information. For testing of asymptomatic individuals, assay performance characteristics and clinical utility have not been evaluated. Testing for SARS-CoV-2 (Severe acute respiratory syndrome coronavirus 2, formerly known as 2019 novel coronavirus or 2019-nCoV) to aid in the diagnosis of COVID-19 is performed using the Simplexa COVID-19 Direct Assay by Dash as authorized by the FDA issued Emergency Use Authorization (EUA). This assay is intended for In-vitro Diagnostic (IVD) use with nasopharyngeal swabs collected from individuals meeting the CDC criteria for testing. The assay is performed based on the instructions for use and additional guidance provided by the FDA. Testing is performed in the Microbiology Laboratory within the Department of Pathology and Laboratory Medicine at [facility], certified under the Clinical Laboratory Improvement Amendments of 1988 (CLIA), 42 U.S.C. section 263a, to perform high complexity tests. Assay performance has been verified according to clinical laboratory regulatory requirements. Test results are provided above. A result of Not Detected indicates that the viral RNA target is not present but does not preclude SARS-CoV-2 infection. False negative results may occur if a specimen is improperly collected, transported or handled; if amplification inhibitors are present; or if inadequate numbers of viral particles are present in the specimen. A result of Detected suggests a current or recent infection and the patient is presumed to be infected. Positive and negative predictive values for this test are highly dependent on disease prevalence. A result of Invalid indicates the inability to conclusively determine the presence or absence of SARS-CoV-2 RNA in the sample which can be due to a variety of factors. Recollection is recommended in the case of an invalid result. CDC COVID-19 criteria for testing on human specimens and clinical management guidance information are available at the CDC Coronavirus Disease 2019 (COVID-19) webpage under Information for Healthcare Professionals (https://www.cdc.gov/coronavirus/2019-ncov/hcp/index.html). Additional information about this and other EUA tests can be found in provider and patient fact sheets at the following FDA website: https://www.fda.gov/medical-devices/ymlncpkewyx-rjawwpc-3101-lcwtl-14-uoinikdtw- use-a jjbcubqjxmont-ghzltwy-upsemym/cdzjv-ztdscpwfvle-ttvx SARS-CoV-2 Source [employer] Swab [facility] Nasopharyngeal swab (specimen) 10/26/2020 10:58 PM EST 10/26/2020 11:34 PM EST Comment:Symptoms->Surveillan ce Narrative Resulting Agency Comment Spec In Lab Luann Hartley MD MICROBIOLOGY - GENER AL ORDERABLES Performing Organization Address [facility] Co de Phone Number [facility] [place] [address] * Film Library- Storage Only CT Head And Spine (10/26/2020 9:51 PM EST) Narrative [facility] 10/26/2020 9:51 PM EST This exam is auto-finalizing. It's purpose is for storage only. Rayna Hoover APRN [facility] FILM LIBRARY ORD ERABLES Performing Organization Address [facility] Co de Phone Number [place], [place] * Film Library- Storage Only CT Chest Abdomen Pelvis (10/26/2020 9:49 PM EST) Narrative [facility] 10/26/2020 9:49 PM EST This exam is auto-finalizing. It's purpose is for storage only. Rayna Hoover APRN [facility] FILM LIBRARY ORD ERABLES Performing Organization Address City/[facility] Co de Phone Number [place], [place] documented in this encounter Visit Diagnoses Diagnosis S/P C4-T2 PSIF for C6-7 bilateral facet dislocation 10/27/20 Dr. Tong- Primary Arthrodesis status Closed displaced fracture of sixth cervical vertebra, unspecified fracture morphology, initial encounter Alcoholic intoxication without complication Hypothermia, initial encounter At risk for prolonged QT interval syndrome Bone lesion Disorder of bone and cartilage, unspecified Cervical spine fracture Closed fracture of cervical vertebra, unspecified level without mention of spinal cord injury documented in this encounter Admitting Diagnoses Diagnosis Cervical spine fracture Closed fracture of cervical vertebra, unspecified level without mention of spinal cord injury documented in this encounter Administered Medications Inactive Administered Medications - up to 3 most recent administrations Medication Order MAR Action Action Date Dose Rate Site acetaminophen (Ofirmev) (1000 mg/100 mL) infusion 1,000 mg 1,000 mg, Intravenous, at 400 mL/hr, Administer over 15 Minutes, EVERY 6 HOURS SCHEDULED, 4 doses, First dose on Thu10/31/20 at 1915, Last dose on Kathy 11/01/20 at 1500, Maximum dose of acetaminophen is 4000 mg from all sources in 24 hours. When ordered for pain, acetaminophen should be given even when other ordered pain medications are indicated. , Routine, Is ketorolac (Toradol) IV contraindicated? Yes / SCI, Can this patient tolerate oral medications or suppositories? No / strict NPO per [employer] Given 11/01/2020 2:08 PM EST 1,000 mg 400 mL/hr Given 11/01/2020 9:18 AM EST 1,000 mg 400 mL/hr Given 11/01/2020 2:14 AM EST 1,000 mg 400 mL/hr acetaminophen (Ofirmev) (1000 mg/100 mL) infusion 1,000 mg 1,000 mg, Intravenous, at 400 mL/hr, Administer over 15 Minutes, EVERY 6 HOURS SCHEDULED, 4 doses, First dose (after last reorder) on Kathy 11/01/20 at 2200, Last dose on Thu11/02/20 at 1500, Maximum dose of acetaminophen is 4000 mg from all sources in 24 hours. When ordered for pain, acetaminophen should be given even when other ordered pain medications are indicated. , Routine, Is ketorolac (Toradol) IV contraindicated? Yes / SCI, Can this patient tolerate oral medications or suppositories? No / strict NPO per [employer] Given 11/02/2020 2:07 PM EST 1,000 mg 400 mL/hr Given 11/02/2020 9:31 AM EST 1,000 mg 400 mL/hr Given 11/02/2020 2:49 AM EST 1,000 mg 400 mL/hr acetaminophen (Ofirmev) (1000 mg/100 mL) infusion 1,000 mg 1,000 mg, Intravenous, at 400 mL/hr, Administer over 15 Minutes, EVERY 8 HOURS SCHEDULED, 5 doses, First dose on Thu11/07/20 at 0130, Last dose on Kathy 11/08/20 at 0600, Maximum dose of acetaminophen is 4000 mg from all sources in 24 hours. When ordered for pain, acetaminophen should be given even when other ordered pain medications are indicated. , Routine, Is ketorolac (Toradol) IV contraindicated? No, Can this patient tolerate oral medications or suppositories? No Given 11/08/2020 9:30 AM EST 1,000 mg 400 mL/hr Given 11/08/2020 12:57 AM EST 1,000 mg 400 mL/hr Given 11/07/2020 2:01 PM EST 1,000 mg 400 mL/hr acetaminophen (Tylenol) (32.02 mg/mL) oral liquid 975 mg 975 mg, Per G Tube, EVERY 6 HOURS SCHEDULED, First dose on Kathy 11/08/20 at 1200, Until Discontinued, Maximum dose of acetaminophen is 4000 mg from all sources in 24 hours. When ordered for pain, acetaminophen should be given even when other ordered pain medications are indicated. , Routine Given 11/20/2020 5:17 AM EST 975 mg Given 11/20/2020 12:33 AM EST 975 mg Given 11/19/2020 5:47 PM EST 975 mg acetaminophen (Tylenol) suppository 650 mg 650 mg, Rectal, EVERY 6 HOURS SCHEDULED, First dose on 11/03/20 at 1200, Until Discontinued, Maximum dose of acetaminophen is 4000 mg from all sources in 24 hours. When ordered for pain, acetaminophen should be given even when other ordered pain medications are indicated. , Routine Given 11/05/2020 5:46 AM EST 650 mg Given 11/05/2020 12:03 AM EST 650 mg Given 11/04/2020 6:24 PM EST 650 mg acetaminophen (Tylenol) tablet 1,000 mg 1,000 mg, Oral, EVERY 8 HOURS SCHEDULED, First dose (after last modification) on 10/27/20 at 2200, Until Discontinued, Maximum dose of acetaminophen is 4000 mg from all sources in 24 hours. When ordered for pain, acetaminophen should be given even when other ordered pain medications are indicated., Routine Given 10/31/2020 1:28 PM EST 1,000 mg Given 10/31/2020 5:41 AM EST 1,000 mg Given 10/30/2020 10:29 PM EST 1,000 mg acetaminophen (Tylenol) tablet 650 mg 650 mg, Oral, EVERY 6 HOURS SCHEDULED, First dose (after last modification) on 10/27/20 at 1415, Until Discontinued, Maximum dose of acetaminophen is 4000 mg from all sources in 24 hours. When ordered for pain, acetaminophen should be given even when other ordered pain medications are indicated., Routine Given 10/27/2020 5:07 PM EST 650 mg acetaminophen (Tylenol) tablet 975 mg 975 mg, Per G Tube, EVERY 6 HOURS SCHEDULED, First dose on Thu11/05/20 at 1800, Until Discontinued, Maximum dose of acetaminophen is 4000 mg from all sources in 24 hours. When ordered for pain, acetaminophen should be given even when other ordered pain medications are indicated. , Routine Given 11/06/2020 11:30 AM EST 975 mg Given 11/06/2020 6:25 AM EST 975 mg Given 11/06/2020 1:38 AM EST 975 mg albumin (human) 5% 250 mL intravenous solution 12.5 g, Intravenous, EVERY 30 MIN, 1 dose, First dose on Thu10/30/20 at 1700, 1 bottle (unit) = 12.5 grams / 250 mL (Total Dose = 12.5 grams = 1 bottle), Routine New Bag 10/30/2020 4:39 PM EST 12.5 g albuteroL (PROVENTIL) nebulizer solution 2.5 mg 2.5 mg, Nebulization, EVERY 4 HOURS PRN, Starting on Thu11/05/20 at 0943, Until Thu11/20/20 at 1230, Wheezing, Routine Given 11/05/2020 9:50 AM EST 2.5 mg amino acid 4.25% in dextrose 5% with electrolytes (Peripheral TPN) (Clinimix E 4.25/5) infusion 1000 mL Intravenous, at 84 mL/hr, CONTINUOUS, Starting on 1/2/21 at 1800, Until 11/05/20 at 1759, Peripheral TPN with Electrolytes. For 2-in-1 TPN (no lipid): Attach 0.2 micron filter set to primary set prior to infusion. For 2-in-1 TPNs with Y-sited lipids: Attach 1.2 micron filter set below Y-site. For 3-in-1 TPN (Lipid in TPN bag): Attach 1.2 micron filter set to primary set prior to infusion. Warning Vesicant/Irritant Medication New Bag 11/05/2020 4:28 AM EST 84 mL/hr New Bag 11/04/2020 5:23 PM EST 84 mL/hr New Bag 11/04/2020 5:01 AM EST 84 mL/hr amino acid 4.25% in dextrose 5% with electrolytes (Peripheral TPN) (Clinimix E 4.25/5) infusion 1000 mL Intravenous, at 100 mL/hr, CONTINUOUS, Starting on Thu11/07/20 at 0815, Until Thu11/07/20 at 1814, Give PPN via PICC line. Peripheral TPN with Electrolytes . For 2-in-1 TPN (no lipid): Attach 0.2 micron filter set to primary set prior to infusion. For 2-in-1 TPNs with Y-sited lipids: Attach 1.2 micron filter set below Y-site. For 3-in-1 TPN (Lipid in TPN bag): Attach 1.2 micron filter set to primary set prior to infusion. Warning Vesicant/Irritant Medication New Bag 11/07/2020 12:55 PM EST 100 mL/hr barium sulfate (E-Z Disk) tablet 700 mg 700 mg, Oral, ONCE, 1 dose, On Thu10/31/20 at 1630, Routine Given 10/31/2020 3:33 PM EST 700 mg barium sulfate (Varibar Honey) 40% (w/v) oral liquid 10 mL 10 mL, Oral, ONCE, 1 dose, On Thu10/31/20 at 1530, Routine Given 10/31/2020 3:33 PM EST 10 mLs barium sulfate (Varibar [place]) 40% (w/v) oral liquid 40 mL 40 mL, Oral, ONCE, 1 dose, On Thu10/31/20 at 1530, Routine Given 10/31/2020 3:34 PM EST 40 mLs barium sulfate (VARIBAR P[place]DING) oral paste 10 mL 10 mL, Oral, ONCE, 1 dose, On Thu10/31/20 at 1515, Routine Given 10/31/2020 3:34 PM EST 10 mLs barium sulfate (Varibar Thin Liquid) oral powder 40 mL 40 mL, Oral, ONCE, 1 dose, On Thu10/31/20 at 1530, Routine Given 10/31/2020 3:34 PM EST 40 mLs bisacodyL (Dulcolax) suppository 10 mg 10 mg, Rectal, DAILY, First dose on 10/28/20 at 1200, Until Discontinued, Perform digital stimulation 30 minutes after administration., Routine Given 10/29/2020 9:30 AM EST 10 mg Given 10/28/2020 12:19 PM EST 10 mg bisacodyL (Dulcolax) suppository 10 mg 10 mg, Rectal, DAILY, First dose on 11/03/20 at 1345, Until Discontinued, Perform digital stimulation 30 minutes after administration., Routine Given 11/19/2020 11:31 AM EST 10 mg Given 11/18/2020 8:42 AM EST 10 mg Given 11/17/2020 9:41 AM EST 10 mg ceFAZolin (Ancef) 2 g in dextrose 5% 100 mL infusion 2 g, Intravenous, EVERY 8 HOURS, 3 doses, First dose (after last modification) on 10/28/20 at 0800, Last dose on 10/29/20 at 0000, Administer over 30 Minutes, Indication for (Active or Suspected): Prophylaxis Given 10/28/2020 11:04 PM EST 2 g 200 mL/hr Given 10/28/2020 3:24 PM EST 2 g 200 mL/hr Given 10/28/2020 8:09 AM EST 2 g 200 mL/hr chlorhexidine (PERIDEX) 0.12 % oral solution 15 mL 15 mL, Oral, 2 TIMES DAILY, First dose on 10/28/20 at 0900, Until Discontinued, Swab oral cavity. Ventilator-associated pneumonia prophylaxis, Routine Given 10/28/2020 8:09 AM EST 15 mLs dexmedetomidine (Precedex) (4 mcg/mL) in sodium chloride 0.9% 100 mL infusion 0-1.7 mcg/kg/hr ? 92.8 kg (0-39.44 mL/hr, rounded to 0-39.4 mL/hr), Intravenous, CONTINUOUS, Starting on 10/27/20 at 1415, Until Tu10/30/20 at 0800, Titrate to sedation level of RASS Goal (-)1 to 0 . Start at 0.4 mcg/kg/hr, adjust by 0.4 mcg/kg/hr every 15 minutes. Once stable, reassess patient every 30 minutes. Rate not to exceed 1.7 mcg/kg/hr. Change rate only after assessing and documenting RASS. Reassess sedation scores within 30 minutes after every rate change. If under sedated, increase rate by 0.4 mcg/kg/hr. If over sedated, hold sedative until target RASS (-)1 to 0 achieved and then restart at 50% of previous rate. Call housekeeping cleaner if goal not achieved at maximum rate. If SAT is ordered and if patient meets criteria for Spontaneous Awakening Trial, titrate per protocol., Routine, Please indicate the name & specialty of the Attending Provider who authorized the use of this medication: Emanuel Kauffman, critical care attending Rate/Dose Verify 10/29/2020 4:00 AM EST 0.6 mcg/kg/hr 13.9 mL/hr Rate/Dose Verify 10/29/2020 2:00 AM EST 0.6 mcg/kg/hr 13.9 mL/hr New Bag 10/29/2020 1:51 AM EST 0.6 mcg/kg/hr 13.9 mL/hr dextrose 5% and sodium chloride 0.45% with potassium chloride 10 mEq infusion 100 mL/hr, Intravenous, CONTINUOUS, Starting on 11/03/20 at 0930, Until Thu11/04/20 at 0812, Warning Vesicant/Irritant Medication New Bag 11/04/2020 5:53 AM EST 100 mL/hr 100 mL/hr New Bag 11/03/2020 7:59 PM EST 100 mL/hr 100 mL/hr New Bag 11/03/2020 9:33 AM EST 100 mL/hr 100 mL/hr diphenhydrAMINE (Benadryl) (50 mg/mL) injection 25 mg 25 mg, Intravenous, EVERY 6 HOURS PRN, Starting on Thu10/31/20 at 2256, Until Thu11/05/20 at 1614, Sleep, Routine Given 10/31/2020 11:18 PM EST 25 mg docusate sodium (Colace) (10 mg/mL) oral liquid 100 mg 100 mg, Per G Tube, 2 TIMES DAILY, First dose on Thu11/07/20 at 1400, Until Discontinued, Routine Given 11/20/2020 8:09 AM EST 100 mg Given 11/19/2020 9:19 PM EST 100 mg Given 11/19/2020 9:59 AM EST 100 mg docusate sodium (Colace) capsule 100 mg 100 mg, Oral, 3 TIMES DAILY, First dose on 10/28/20 at 1200, Until Discontinued, Routine Given 10/29/2020 5:05 AM EST 100 mg Given 10/28/2020 12:19 PM EST 100 mg famotidine (Pepcid) (10 mg/mL) injection 20 mg 20 mg, Intravenous, 2 TIMES DAILY, First dose on 10/27/20 at 0900, Until Discontinued, Routine Given 10/29/2020 9:30 AM EST 20 mg famotidine (Pepcid) tablet 20 mg 20 mg, Oral, 2 TIMES DAILY, First dose on 10/27/20 at 0900, Until Discontinued, If unable to take PO, may give IV, Routine Given 10/28/2020 8:17 PM EST 20 m g Given 10/28/2020 8:09 AM EST 20 mg Given 10/27/2020 8:27 PM EST 20 mg fat emulsion 20% infusion 500 mL, Intravenous, at 8.3 mL/hr, CHANGE BAG EVERY EVENING, 2 doses, First dose on Thu11/03/20 at 1800, Last dose on Thu11/04/20 at 1800, fat emulsion 20% to be Y-sited into BASE solution, Routine New Bag 11/04/2020 5:24 PM EST 500 mLs 8.3 mL/hr New Bag 11/03/2020 5:57 PM EST 500 mLs 8.3 mL/hr fentaNYL (PF) (50 mcg/mL) injection 50 mcg 50 mcg, Intravenous, PER TRAUMA ANALGESIC PROTOCOL, Starting on Thu10/26/20 at 2257, Until 10/27/20 at 0617, Pain, Every 5-15 minutes PRN, STAT Given 10/27/2020 5:40 AM EST 50 mcg Given 10/27/2020 4:08 AM EST 50 mcg Given 10/27/2020 12:05 AM EST 50 mcg fentaNYL (PF) (50 mcg/mL) injection 50 mcg 50 mcg, Intravenous, ONCE, 1 dose, On 10/27/20 at 0447, If medication ordered subcutaneously, do not administer more than 2 mL as a single injection., STAT Given 10/27/2020 4:47 AM EST 50 mc g folic acid (Folvite) tablet 1,000 mcg 1,000 mcg (1 mg), Oral, DAILY, First dose on Thu10/28/20 at 1145, Until Discontinued, Routine Given 10/31/2020 9:12 AM EST 1,000 mcg Given 10/30/2020 8:56 AM EST 1,000 mcg Given 10/28/2020 12:20 PM EST 1,000 mcg folic acid (Folvite) tablet 1,000 mcg 1,000 mcg (1 mg), Per G Tube, DAILY, First dose on Thu11/06/20 at 0900, Until Discontinued, Routine Given 11/06/2020 8:44 AM EST 1,000 mcg folic acid (Vitamin B9) (5 mg/mL) injection 1 mg 1 mg, Intravenous, DAILY, First dose on Thu11/02/20 at 0900, Until Discontinued, Routine Given 11/05/2020 9:51 AM EST 1 mg Given 11/04/2020 9:32 AM EST 1 mg Given 11/03/2020 9:12 AM EST 1 mg heparin (porcine) (5,000 units/1 mL) subcutaneous injection 5,000 Units 5,000 Units, Subcutaneous, EVERY 8 HOURS SCHEDULED, First dose (after last modification) on Thu10/30/20 at 1700, Until Discontinued, Routine Given 11/20/2020 5:18 AM EST 5,000 Units Given 11/19/2020 9:19 PM EST 5,000 Units Given 11/19/2020 2:35 PM EST 5,000 Units HYDROmorphone (Dilaudid) (1 mg/mL) injection syringe 0.6 mg 0.6 mg, Intravenous, EVERY 4 HOURS PRN, Starting on 10/27/20 at 1319, Until Thu10/31/20 at 1625, Pain, severe pain (7-10), May give an additional 0.2 mg in 30 minutes once if pain not relieved., Routine Given 10/30/2020 6:21 PM EST 0.6 mg Given 10/30/2020 2:35 PM EST 0.6 mg HYDROmorphone (Dilaudid) (2 mg/mL) multi-dose injection solution 0.2-0.4 mg 0.2-0.4 mg, Intravenous, EVERY 5 MIN PRN, Starting on 11/05/20 at 1315, Until 11/05/20 at 1424, Pain, Give 0.2 mg every 5 minutes PRN for mild to moderate pain (1-5) Give 0.4 mg every 5 minutes PRN for moderate to severe pain (6-10). Hold for respiratory rate less than 10 per minute. Maximum dose 4 mg over one hour. If multiple pain medications are ordered, start with hydromorphone or morphine and use fentanyl for breakthrough pain., PACU Recovery, Routine Given 11/05/2020 1:45 PM EST 0.2 mg Given 11/05/2020 1:33 PM EST 0.2 mg HYDROmorphone (Dilaudid) 0.5 mg/0.5 mL injection 0.2 mg 0.2 mg, Intravenous, EVERY 4 HOURS PRN, Starting on 10/27/20 at 1319, Until 10/31/20 at 1828, Pain, mild pain (1-3), May give an additional 0.2 mg in 30 minutes once if pain not relieved., Routine Given 10/31/2020 9:10 AM EST 0.2 mg Given 10/29/2020 5:27 PM EST 0.2 mg HYDROmorphone (Dilaudid) 0.5 mg/0.5 mL injection 0.2 mg 0.2 mg, Intravenous, EVERY 2 HOURS PRN, Starting on 10/31/20 at 1830, Until 11/05/20 at 1614, Pain, mild pain (1-3), May give an additional 0.2 mg in 30 minutes once if pain not relieved., Routine Given 11/05/2020 11:42 AM EST 0.2 mg Given 11/05/2020 6:06 AM EST 0.2 mg Given 11/05/2020 12:11 AM EST 0.2 mg HYDROmorphone (Dilaudid) 0.5 mg/0.5 mL injection 0.4 mg 0.4 mg, Intravenous, EVERY 4 HOURS PRN, Starting on 10/27/20 at 1319, Until 10/31/20 at 1828, Pain, moderate pain (4-6), May give an additional 0.2 mg in 30 minutes once if pain not relieved., Routine Given 10/31/2020 3:50 AM EST 0.4 mg Given 10/30/2020 10:29 PM EST 0.4 mg Given 10/30/2020 10:07 AM EST 0.4 mg HYDROmorphone (Dilaudid) 0.5 mg/0.5 mL injection 0.4 mg 0.4 mg, Intravenous, EVERY 2 HOURS PRN, Starting on 10/31/20 at 1830, Until Thu11/04/20 at 1249, Pain, moderate pain (4-6), May give an additional 0.2 mg in 30 minutes once if pain not relieved., Routine Given 11/02/2020 2:30 PM EST 0.4 mg Given 11/02/2020 3:49 AM EST 0.4 mg Given 11/01/2020 9:33 PM EST 0.4 mg iohexoL (Omnipaque) (350 mg/mL) injection solution 0-200 mL 0-200 mL, Intravenous, ONCE PRN, 1 dose, Starting on Kathy 11/08/20 at 1042, Until Kathy 11/08/20 at 1042, Per Protocol, Warning Vesicant/Irritant Medication , Radiology Contrast, Routine Given 11/08/2020 10:42 AM EST 115 mLs iohexoL (Omnipaque) (350 mg/mL) injection solution 65 mL 65 mL, Intravenous, ONCE PRN, 1 dose, Starting on Thu10/26/20 at 2346, Until Thu10/26/20 at 2347, Per Protocol, Warning Vesicant/Irritant Medication , Routine Given 10/26/2020 11:47 PM EST 65 mLs ipratropium-albuteroL (DUONEB) 0.5 mg-3 mg(2.5 mg base)/3 mL nebulizer solution 3 mL 3 mL, Nebulization, EVERY 4 HOURS WHILE AWAKE, First dose on Thu11/06/20 at 1400, Until Discontinued, Routine Given 11/11/2020 10:16 AM EST 3 mLs Given 11/11/2020 6:15 AM EST 3 mLs Given 11/10/2020 9:46 PM EST 3 mLs ipratropium-albuteroL (DUONEB) 0.5 mg-3 mg(2.5 mg base)/3 mL nebulizer solution 3 mL 3 mL, Nebulization, DAILY PRN, Starting on Thu11/11/20 at 1345, Until Thu11/20/20 at 1230, Wheezing, Routine lactated Ringers 1,000 mL IV bolus at 2,000 mL/hr, Intravenous, ONCE, 1 dose, On Thu10/27/20 at 0058 10/27/2020 12:30 AM EST 2000 mL/hr lactated Ringers 500 mL IV bolus Intravenous, ONCE, 1 dose, On Thu10/29/20 at 2015 [facility] 10/29/2020 8:23 PM EST lactated Ringers 500 mL IV bolus Intravenous, ONCE, 1 dose, On Thu10/30/20 at 0900 [facility] 10/30/2020 8:07 AM EST lactated Ringers 500 mL IV bolus Intravenous, ONCE, 1 dose, On Thu10/30/20 at 1115 [facility] 10/30/2020 10:31 AM EST lactated Ringers 500 mL IV bolus Intravenous, ONCE, 1 dose, On Thu10/30/20 at 1145 [facility] 10/30/2020 11:01 AM EST lactated ringers infusion 1,000 mL, at 100 mL/hr, Intravenous, CONTINUOUS, Starting on Thu10/27/20 at 0715, Until Thu10/29/20 at 0912, Recovery (Rec[facility]-Hospital Unit) Rate/Dose Verify 10/29/2020 4:00 AM EST 10 0 mL/hr 10/29/2020 2:35 AM EST 1,000 mLs 100 mL/hr Rate/Dose Verify 10/29/2020 2:00 AM EST 100 mL/ hr lactated ringers infusion 100 mL/hr, Intravenous, CONTINUOUS, Starting on Thu10/30/20 at 0900, Until Thu10/30/20 at 2303 Rate/Dose Change 10/30/2020 10:58 AM EST 100 mL/hr 100 mL/hr [facility] 10/30/2020 8:10 AM EST 75 mL/hr 75 mL/hr lactobacillus with pectin capsule 1 capsule 1 capsule, Oral, DAILY, First dose on Thu11/12/20 at 1515, Until Discontinued, Break capsule and administer contents via G tube with water or add to meals/thickened liquids, Routine Given 11/20/2020 8:09 AM EST 1 capsule Given 11/19/2020 9:59 AM EST 1 capsule Given 11/18/2020 8:45 AM EST 1 capsule lidocaine (LIDODERM) 5 % patch 3 patch 3 patch, Transdermal, EVERY 24 HOURS, First dose on Thu10/30/20 at 1030, Until Discontinued, Apply patch(es) for 12 hours, and then remove for 12 hours., Routine Patch Applied 11/19/2020 9:58 AM EST 3 patches 09- Arm Upper (Left) Patch Applied 11/18/2020 10:37 AM EST 3 patches 03- Shoulder (Left) Patch Applied 11/17/2020 10:00 AM EST 3 patches 03- Shoulder (Left) lidocaine (LIDODERM) patch REMOVAL Transdermal, EVERY 24 HOURS, First dose on Thu10/30/20 at 2145, Until Discontinued, Remove lidocaine 5 %(700 mg/patch) patch lidocaine (XYLOCAINE) 2 % jelly Starting on Thu11/01/20 at 1453, 1 dose, Until Thu11/01/20 at 1520, Mar Stanton ([facility]): cabinet override lidocaine (XYLOCAINE) 2 % jelly Topical (Top), EVERY 4 HOURS PRN, Pain, Starting on Thu11/01/20 at 1455, Until Thu11/20/20 at 1230 Given 11/01/2020 3:20 PM EST 20-Other (document i n comment section) LORazepam (Ativan) (2 mg/mL) injection 2 mg 2 mg, Intravenous, ONCE, 1 dose, On 10/27/20 at 0745, Routine Given 10/27/2020 6:59 AM EST 2 mg LORazepam (Ativan) 2 mg/mL injection 1 dose, Starting on Thu10/27/20 at 0154, Until Thu10/27/20 at 0155, YUMIKO Zaragoza: cabinet override Given 10/27/2020 1:55 AM EST 1 mg LORazepam (Ativan) 2 mg/mL injection 1 dose, Starting on 10/27/20 at 0400, Until 10/27/20 at 0359, YUMIKO Zaragoza: cabinet override Given 10/27/2020 3:59 AM EST 0.5 mg Given 10/27/2020 3:43 AM EST 0.5 mg magnesium sulfate 2 g in sterile water 50 mL infusion 2 g, Intravenous, ONCE, 1 dose, On 10/27/20 at 1530, Administer over 120 Minutes New Bag 10/27/2020 2:56 PM EST 2 g 25 mL/hr magnesium sulfate 2 g in sterile water 50 mL infusion 2 g, Intravenous, ONCE, 1 dose, On 10/28/20 at 0400, Administer over 120 Minutes New Bag 10/28/2020 5:23 AM EST 2 g 25 mL/hr magnesium sulfate 2 g in sterile water 50 mL infusion 2 g, Intravenous, ONCE, 1 dose, On 10/29/20 at 0245, Administer over 120 Minutes New Bag 10/29/2020 1:53 AM EST 2 g 25 mL/hr magnesium sulfate 2 g in sterile water 50 mL infusion 2 g, Intravenous, ONCE, 1 dose, On Kathy 11/15/20 at 0715, Administer over 120 Minutes New Bag 11/15/2020 6:59 AM EST 2 g 25 mL/hr melatonin tablet 3 mg 3 mg, Oral, ONCE, 1 dose, On 11/11/20 at 0015, Routine Given 11/10/2020 11:31 PM EST 3 mg melatonin tablet 6 mg 6 mg, Oral, NIGHTLY, First dose (after last modification) on Thu10/30/20 at 0200, Until Discontinued, Routine Given 10/30/2020 8:12 PM EST 6 mg Given 10/30/2020 1:07 AM EST 6 mg melatonin tablet 6 mg 6 mg, Per G Tube, NIGHTLY, First dose on 11/05/20 at 2100, Until Discontinued, Routine Given 11/10/2020 9:46 PM EST 6 mg Given 11/09/2020 9:11 PM EST 6 mg Given 11/08/2020 10:16 PM EST 6 mg melatonin tablet 6 mg 6 mg, Per G Tube, NIGHTLY PRN, Starting on 11/10/20 at 2330, Until Thu11/20/20 at 1230, insomnia, Routine Given 11/19/2020 10:36 PM EST 6 mg Given 11/17/2020 11:43 PM EST 6 mg Given 11/16/2020 8:59 PM EST 6 mg miconazole (MICOTIN) 2 % powder Topical (Top), 2 TIMES DAILY, First dose on Thu11/15/20 at 2100, Until Discontinued, Feet, hands Given 11/20/2020 8:09 AM EST Given 11/19/2020 9:20 PM EST Given 11/19/2020 10:00 AM EST multivitamin with minerals (THERA-M) tablet 1 tablet 1 tablet, Oral, DAILY, First dose on Thu10/28/20 at 1145, Until Discontinued, Routine Given 10/31/2020 9:01 AM EST 1 tablet Given 10/30/2020 8:56 AM EST 1 tablet Given 10/28/2020 12:19 PM EST 1 tablet ondansetron (pf) (Zofran) (2 mg/mL) injection 4 mg 4 mg, Intravenous, EVERY 8 HOURS PRN, Starting on Thu11/06/20 at 1156, Until Thu11/20/20 at 1230, Nausea Given 11/06/2020 12:12 PM EST 4 mg ondansetron (pf) (Zofran) (2 mg/mL) injection 4 mg 4 mg, Intravenous, ONCE, 1 dose, On Thu11/06/20 at 1345 Given 11/06/2020 1:12 PM EST 4 mg oxyCODONE (Roxicodone) (1 mg/mL) oral liquid 5 mg 5 mg, Per G Tube, EVERY 4 HOURS PRN, Starting on Thu11/06/20 at 1256, Until Thu11/16/20 at 1241, Pain, Routine Given 11/13/2020 1:42 PM EST 5 mg Given 11/09/2020 3:07 PM EST 5 mg Given 11/09/2020 8:49 AM EST 5 mg oxyCODONE (Roxicodone) tablet 10-15 mg 10-15 mg, Oral, EVERY 4 HOURS PRN, Starting on Thu10/30/20 at 1020, Until Thu10/31/20 at 1625, Pain, severe pain (7-10), Initial dose 10mg. If pain control not adequate in 60 minutes, give additional 5mg, Routine Given 10/31/2020 12:09 PM EST 15 mg Given 10/31/2020 12:57 AM EST 10 mg Given 10/30/2020 8:43 PM EST 10 mg oxyCODONE (Roxicodone) tablet 5 mg 5 mg, Per G Tube, EVERY 4 HOURS PRN, Starting on 11/05/20 at 1611, Until Tu11/06/20 at 1256, Pain, Routine Given 11/06/2020 1:57 AM EST 5 mg oxyCODONE (Roxicodone) tablet 5-10 mg 5-10 mg, Oral, EVERY 4 HOURS PRN, Starting on 10/30/20 at 1020, Until Kathy 11/01/20 at 1223, Pain, moderate pain (4-6), Initial dose 5mg. If pain control not adequate in 60 minutes, give additional 5mg, Routine Given 10/31/2020 4:45 PM EST 10 mg Given 10/31/2020 5:50 AM EST 5 mg Given 10/30/2020 2:41 PM EST 10 mg pantoprazole (Protonix) injection 40 mg 40 mg, Intravenous, ONCE, 1 dose, On 11/04/20 at 2130 Given 11/04/2020 9:24 PM EST 40 mg PHENobarbitaL (Luminal) (130 mg/mL) injection 148.2 mg 148.2 mg (rounded from 147.96 mg = 1.8 mg/kg/dose ? 82.2 kg [place] weight), Intravenous, at 13.7 mL/hr, Administer over 5 Minutes, EVERY 3 HOURS, 2 doses, First dose on 10/27/20 at 1615, Last dose on 10/27/20 at 1915, Administer as slow IV Push at at rate no more than 50 mg/minute. Hold for RASS Less than -1: Not fully alert, but has sustained (more than 10 seconds) awakening, with eye contact, to voice. Hold for HR Less than 60 bpm. Hold for SBP Less than 90 mmHg., Routine Given 10/27/2020 8:27 PM EST 148.2 mg 13. 7 mL/hr Given 10/27/2020 5:07 PM EST 148.2 mg 13.7 mL/hr PHENobarbitaL (Luminal) (130 mg/mL) injection 197.6 mg 197.6 mg (rounded from 197.28 mg = 2.4 mg/kg/dose ? 82.2 kg [place] weight), Intravenous, at 18.2 mL/hr, Administer over 5 Minutes, ONCE, 1 dose, On 10/27/20 at 1315, Administer as slow IV Push at at rate no more than 50 mg/minute. Hold for RASS Less than -1: Not fully alert, but has sustained (more than 10 seconds) awakening, with eye contact, to voice. Hold for HR Less than 60 bpm. Hold for SBP Less than 90 mmHg., Routine Given 10/27/2020 1:54 PM EST 197.6 mg 18.2 mL/hr PHENobarbitaL (Luminal) tablet 16.2 mg 16.2 mg (rounded from 19.728 mg = 0.24 mg/kg/dose ? 82.2 kg [place] weight), Per G Tube, 2 TIMES DAILY, 2 doses, First dose (after last modification) on 10/29/20 at 0900, Last dose on Thu10/29/20 at 2100, Hold for RASS Less than -1: Not fully alert,but has sustained (more than 10 seconds) awakening, with eye contact, to voice. While intubated hold for RASS of -4. Hold for HR Less than 60 bpm. Hold for SBP Less than 90 mmHg., Routine Given 10/29/2020 8:23 PM EST 16.2 mg Given 10/29/2020 11:38 AM EST 16.2 mg PHENobarbitaL (Luminal) tablet 40.5 mg 40.5 mg (rounded from 39.456 mg = 0.48 mg/kg/dose ? 82.2 kg [place] weight), Oral, 2 TIMES DAILY, 2 doses, First dose on 10/28/20 at 0900, Last dose on 10/28/20 at 2100, Hold for RASS Less than -1: Not fully alert,but has sustained (more than 10 seconds) awakening, with eye contact, to voice. While Intubated hold for RASS of -4. Hold for HR Less than 60 bpm. Hold for SBP Less than 90 mmHg., Routine Given 10/28/2020 8:06 AM EST 40.5 mg PHENobarbitaL (Luminal) tablet 40.5 mg 40.5 mg (rounded from 39.456 mg = 0.48 mg/kg/dose ? 82.2 kg [place] weight), Per G Tube, 2 TIMES DAILY, 1 dose, First dose (after last modification) on Thu10/28/20 at 2100, Hold for RASS Less than -1: Not fully alert,but has sustained (more than 10 seconds) awakening, with eye contact, to voice. While Intubated hold for RASS of -4. Hold for HR Less than 60 bpm. Hold for SBP Less than 90 mmHg., Routine Given 10/28/2020 8:16 PM EST 40.5 mg PHENobarbitaL (Luminal) tablet 8.1 mg 8.1 mg (rounded from 9.864 mg = 0.12 mg/kg/dose ? 82.2 kg [place] weight), Per G Tube, 2 TIMES DAILY, 2 doses, First dose (after last modification) on Thu10/30/20 at 0900, Last dose on Thu10/30/20 at 2100, Hold for RASS Less than -1: Not fully alert,but has sustained (more than 10 seconds) awakening, with eye contact, to voice. While Intubated hold for RASS of -4. Hold for HR Less than 60 bpm. Hold for SBP Less than 90 mmHg., Routine Given 10/30/2020 8:12 PM EST 8.1 mg Given 10/30/2020 8:55 AM EST 8.1 mg PHENYLephrine (JOSE DE JESUS-SYNEPHRINE) 20 mg in sodium chloride 250 mL (standard ADULT & Pedi greater than 20kg) infusion 0-180 mcg/min (0-135 mL/hr), Intravenous, CONTINUOUS, Starting on Thu10/26/20 at 2320, Until Thu10/30/20 at 0800, Titrate to maintain mean arterial pressure (MAP) greater than 80 mmHg. Start at 50 mcg/min and adjust dose by 25 mcg/min every 10 minutes. Do not exceed 180 mcg/min. Warning Vesicant/Irritant Medication Rate/Dose Change 10/29/2020 10:05 PM EST 25 mcg/min 18.8 mL/hr New Bag 10/29/2020 7:07 PM EST 50 mcg/min 37.5 mL/hr Rate/Dose Change 10/29/2020 6:42 PM EST 25 mcg/min 18.8 mL /hr PHENYLephrine (JOSE DE JESUS-SYNEPHRINE) 20 mg in sodium chloride 250 mL (standard ADULT & Pedi greater than 20kg) infusion 0-180 mcg/min (0-135 mL/hr), Intravenous, CONTINUOUS, Starting on Thu10/30/20 at 1145, Until Thu10/31/20 at 1400, Titrate to maintain mean arterial pressure (MAP) greater than 65 mmHg. Start at 50 mcg/min and adjust dose by 25 mcg/min every 10 minutes. Do not exceed 180 mcg/min. Warning Vesicant/Irritant Medication Rate/Dose Change 10/30/2020 10:50 AM EST 30 mcg/min 22.5 mL/hr New Bag 10/30/2020 10:30 AM EST 20 mcg/min 15 mL/hr piperacillin-tazobactam (Zosyn) 3.375 g vial attach to sodium chloride 0.9% 50 mL Mini-Bag Plus 3.375 g, Intravenous, [employer]ALL [employer] TO O.R., 1 dose, On Thu11/05/20 at 1230, Administer over 4 Hours, Warning Vesicant/Irritant Medication Do not administer or Y-site with lactated ringers., Indication for (Active or Suspected): Prophylaxis New Bag 11/05/2020 12:21 PM EST 3.375 g 12. 5 mL/hr potassium phosphate (monobasic) (K-Phos) tablet 500 mg 500 mg, Oral, 4 TIMES DAILY, 4 doses, First dose on Thu10/29/20 at 1415, Last dose on Thu10/30/20 at 0900, Dissolve tablets in 6-8 oz of water; for best results, soak tablets in water for 2-5 minutes, then stir and give to patient., Routine Given 10/29/2020 8:22 PM EST 500 mg Given 10/29/2020 6:46 PM EST 500 mg Given 10/29/2020 2:23 PM EST 500 mg potassium phosphate (monobasic) (K-Phos) tablet 500 mg 500 mg, Oral, 4 TIMES DAILY WITH MEALS & NIGHTLY, First dose on Thu10/30/20 at 0900, Until Discontinued, Dissolve tablets in 6-8 oz of water; for best results, soak tablets in water for 2-5 minutes, then stir and give to patient., Routine Given 10/31/2020 4:45 PM EST 500 mg Given 10/31/2020 12:19 PM EST 500 mg Given 10/31/2020 9:01 AM EST 500 mg potassium phosphate (monobasic) (K-Phos) tablet 500 mg 500 mg, Per NG tube, 4 TIMES DAILY WITH MEALS & NIGHTLY, First dose (after last modification) on Kathy 11/01/20 at 1700, Until Discontinued, Dissolve tablets in 6-8 oz of water; for best results, soak tablets in water for 2-5 minutes, then stir and give to patient., Routine Given 11/01/2020 6:17 PM EST 500 mg potassium phosphate 15 mMol in sodium chloride 0.9% 250 mL 15 mmol, Intravenous, ONCE, 1 dose, On 10/29/20 at 0245, Administer over 4 Hours, Administer over 4-6 hours New Bag 10/29/2020 5:01 AM EST 15 mmol potassium phosphate 15 mMol in sodium chloride 0.9% 250 mL 15 mmol, Intravenous, ONCE, 1 dose, On 10/30/20 at 0430, Administer over 4 Hours, Administer over 4-6 hours New Bag 10/30/2020 4:16 AM EST 15 mmol propofoL (Diprivan) 10 mg/mL infusion 1 dose, Starting on 10/27/20 at 1310, Until 10/27/20 at 1320, DENISE DOMINGUEZ.: cabinet override propofoL (Diprivan) infusion 0-50 mcg/kg/min ? 92.8 kg (0-27.84 mL/hr, rounded to 0-27.8 mL/hr), Intravenous, CONTINUOUS, Starting on 10/27/20 at 1415, Until 10/28/20 at 1933, Titrate to sedation level of RASS Goal (-)1 to 0 . Start at 20 mcg/kg/min, adjust rate by 10 mcg/kg/min every 3 minutes. Once stable, reassess patient every 30 minutes. Rate not to exceed 50 mcg/kg/minute. Change rate only after assessing and documenting RASS. Reassess sedation scores within 30 minutes after every rate change. If under sedated, increase rate by 10 mcg/kg/min. If over sedated, hold sedative until target RASS (-)1 to 0 achieved and then restart at 50% of previous rate. Call housekeeping cleaner if goal not achieved at maximum rate. If SAT is ordered and if patient meets criteria for Spontaneous Awakening Trial, titrate per protocol., Routine Rate/Dose Change 10/27/2020 4:00 PM EST 20 mcg/kg/min 11.1 mL/hr Rate/Dose Change 10/27/2020 3:00 PM EST 30 mcg/kg/min 16.7 mL/hr Rate/Dose Change 10/27/2020 2:00 PM EST 40 mcg/kg/min 22.3 mL/hr protein powder 2 Scoop, Per NG tube, 2 TIMES DAILY, First dose on Kathy 11/01/20 at 1200, Until Discontinued, Routine Given 11/01/2020 6:00 PM EST 2 Scoops protein powder 4 Scoop, Per G Tube, 3 TIMES DAILY, First dose on Thu11/06/20 at 0900, Until Discontinued, Routine Given 11/06/2020 9:00 AM EST 4 Scoops protein powder 2 Scoop, Per G Tube, 3 TIMES DAILY, First dose on Thu11/14/20 at 1500, Until Discontinued, Routine Given 11/20/2020 9:00 AM EST 2 Scoops Given 11/19/2020 9:00 PM EST 2 Scoops Given 11/19/2020 3:00 PM EST 2 Scoops senna (Senokot) tablet 34.4 mg 34.4 mg, Oral, NIGHTLY, First dose on 10/28/20 at 2100, Until Discontinued, Routine Given 10/28/2020 8:29 PM EST 34.4 mg senna (Senokot) tablet 34.4 mg 34.4 mg, Oral, DAILY, First dose on 11/17/20 at 0900, Until Discontinued, Routine Given 11/20/2020 8:09 AM EST 34.4 mg Given 11/19/2020 9:58 AM EST 34.4 mg Given 11/18/2020 8:45 AM EST 34.4 mg senna-docusate (Pericolace) 8.6-50 mg per tablet 2 tablet 2 tablet, Oral, 2 TIMES DAILY, First dose on 10/27/20 at 0900, Until Discontinued, Routine Given 10/28/2020 8:17 PM EST 2 tablets Given 10/28/2020 8:08 AM EST 2 tablets Given 10/27/2020 8:27 PM EST 2 tablets sennosides (Senokot) (1.76 mg/mL) oral liquid 8.8 mg 8.8 mg, Per G Tube, ONCE, 1 dose, On Thu11/07/20 at 1400, Routine Given 11/07/2020 2:02 PM EST 8.8 mg sodium chloride 0.9 % (flush) flush 5 mL 5 mL, Intravenous, 2 TIMES DAILY, First dose on Thu10/27/20 at 0900, Until Discontinued, Recovery (Recovery-Hospital Unit), Routine Given 11/20/2020 8:16 AM EST 5 mLs Given 11/19/2020 9:20 PM EST 5 mLs Given 11/19/2020 9:59 AM EST 5 mLs sodium chloride 3 % nebulizer solution 15 mL 15 mL, Nebulization, 2 TIMES DAILY, First dose on Thu11/06/20 at 1215, Until Discontinued, Routine Given 11/20/2020 8:08 AM EST 15 mLs Given 11/19/2020 9:19 PM EST 15 mLs Given 11/17/2020 9:42 AM EST 15 mLs thiamine (Vitamin B-1) (100 mg/mL) injection 100 mg 100 mg, Intravenous, DAILY, First dose on Thu11/02/20 at 0900, Until Discontinued, Doses of 100 mg are to be administered as IV push over 5 minutes. Doses of 200 mg or more should be mixed in 50 mL 0.9% Sodium Chloride and infused over 30 minutes. Given 11/05/2020 9:51 AM EST 100 mg Given 11/04/2020 9:32 AM EST 100 mg Given 11/03/2020 9:11 AM EST 100 mg thiamine (Vitamin B1) tablet 100 mg 100 mg, Oral, DAILY, First dose on Thu10/28/20 at 1145, Until Discontinued, Routine Given 10/31/2020 9:0 1 AM EST 100 mg Given 10/30/2020 8:56 AM EST 100 mg Given 10/28/2020 12:20 PM EST 100 mg thiamine (Vitamin B1) tablet 100 mg 100 mg, Per G Tube, DAILY, First dose on Thu11/06/20 at 0900, Until Discontinued, Routine Given 11/06/2020 8:[address] 100 mg tiZANidine (Zanaflex) tablet 4 mg 4 mg, Oral, 3 TIMES DAILY PRN, Starting on Thu11/16/20 at 1241, Until Thu11/20/20 at 1230, Muscle spasms, Routine Given 11/19/2020 5:48 PM EST 4 mg Given 11/19/2020 12:10 AM EST 4 mg Given 11/17/2020 11:44 PM EST 4 mg TPN Adult Central, Intravenous, at 100 mL/hr, CONTINUOUS, Starting on Thu11/05/20 at 1800, Until Thu11/06/20 at 1759, Administer over 24 Hours New Bag 11/05/2020 5:36 PM EST 100 mL /hr TPN Adult Central, Intravenous, at 100 mL/hr, CONTINUOUS, Starting on Thu11/07/20 at 1800, Until Thu11/08/20 at 1015, Administer over 24 Hours New Bag 11/07/2020 6:04 PM EST 100 mL /hr TPN Adult Central, Intravenous, at 100 mL/hr, CONTINUOUS, Starting on Thu11/08/20 at 1800, Until Thu11/09/20 at 1759, Administer over 24 Hours New Bag 11/08/2020 6:10 PM EST 100 mL /hr TPN Adult Central, Intravenous, at 100 mL/hr, CONTINUOUS, Starting on Thu11/09/20 at 1800, Until Thu11/12/20 at 1759, Administer over 24 Hours New Bag 11/11/2020 6:40 PM EST 100 mL /hr New Bag 11/10/2020 6:42 PM EST 100 mL/hr New Bag 11/09/2020 6:21 PM EST 100 mL/hr TPN Adult Central, Intravenous, at 140 mL/hr, CYCLIC, Starting on Thu11/12/20 at 1800, Until Thu11/13/20 at 1052, Administer over 12 Hours New Bag 11/12/2020 6:13 PM EST 140 mL /hr TPN Adult Central, Intravenous, at 100 mL/hr, CYCLIC, Starting on Thu11/13/20 at 1800, Until Thu11/14/20 at 0938, Administer over 12 Hours New Bag 11/13/2020 6:34 PM EST 100 mL /hr traZODone (Desyrel) tablet 50 mg 50 mg, Oral, NIGHTLY PRN, Starting on 11/18/20 at 0724, Until Thu11/20/20 at 1230, Sleep, Routine Given 11/19/2020 10:36 PM EST 50 mg Given 11/18/2020 9:24 PM EST 50 mg tube feeding diet 1,512 mL, Per NG tube, at 63 mL/hr, CONTINUOUS, Starting on Thu11/01/20 at 1200, Until Thu11/01/20 at 1934, Administer flushes and check residuals per policy, Which tube feed product? Nutren 1.5, Initial Rate: (mL/hr): 20, Advance by: (mL): 20, Advance every: Q4H, Goal final rate: (mL/hr): 75 New Bag 11/01/2020 6:00 PM EST 1,512 mLs 63 mL/h r tube feeding diet 1,512 mL, Per G Tube, CONTINUOUS, Starting on Thu11/06/20 at 0630, Until Thu11/07/20 at 1306, Administer flushes and check residuals per policy, Which tube feed product? Nutren 1.5, Initial Rate: (mL/hr): 10, Advance by: (mL): 10, Advance every: Q4H, Goal final rate: (mL/hr): 63 New Bag 11/06/2020 10:28 AM EST 1,512 mLs 20 mL/hr New Bag 11/06/2020 6:30 AM EST 1,512 mLs tube feeding diet 1,080 mL, Per G Tube, at 45 mL/hr, CONTINUOUS, Starting on Thu11/14/20 at 1200, Until Thu11/18/20 at 1314, Administer flushes and check residuals per policy, Which tube feed product? Nutren 2.0, Initial Rate: (mL/hr): 20, Advance by: (mL): 20, Advance every: Q4H, Goal final rate: (mL/hr): 45 Rate/Dose Verify 11/16/2020 7:00 PM EST 45 mL/hr Rate/Dose Verify 11/15/2020 9:00 PM EST 45 mL/h r New Bag 11/15/2020 5:13 PM EST 1,080 mLs 45 mL/hr tube feeding diet 1,080 mL, Per G Tube, at 45 mL/hr, CYCLIC, Starting on Thu11/18/20 at 1800, Until Thu11/19/20 at 0559, Administer flushes and check residuals per policy, Which tube feed product? Nutren 2.0, Initial Rate: (mL/hr): 20, Advance by: (mL): 20, Goal final rate: (mL/hr): 90 New Bag 11/18/2020 6:18 PM EST 1,080 mL s 45 mL/hr tube feeding diet 1,080 mL, Per G Tube, at 45 mL/hr, CYCLIC, Starting on 11/19/20 at 1900, Until Tu11/20/20 at 0659, Administer flushes and check residuals per policy, Which tube feed product? Nutren 2.0, Initial Rate: (mL/hr): 20, Advance by: (mL): 20, Goal final rate: (mL/hr): 90 New Bag 11/20/2020 6:00 AM EST 1,080 mL s 45 mL/hr New Bag 11/19/2020 6:10 PM EST 1,080 mLs 45 mL/hr documented in this encounter Active and Recently Administered Medications Times are shown in EST. Scheduled Medication Order 11/18/2020 11/19/2020 11/20/2020 acetaminophen (Tylenol) (32.02 mg/mL) oral liquid 975 mg 975 mg, Per G Tube, EVERY 6 HOURS SCHEDULED, First dose on Kathy 11/08/20 at 1200, Until Discontinued, Maximum dose of acetaminophen is 4000 mg from all sources in 24 hours. When ordered for pain, acetaminophen should be given even when other ordered pain medications are indicated. , Routine 0615 (Given - Provider: Ten Dove RN)1146 (Given - Provider: Keisha Trevino)1814 (Given - Provider: Deysi Austin RN) 0004 (Given - Provider: Amelia Mora RN)0604 (Given - Provider: Amelia Mora, SWETHA)1135 (Given - Provider: Yola Estrada, SWETHA)1747 (Given - Provider: Mike Lorenzo, SWETHA) 0033 (Given - Provider: Natalie Bailey, SWETHA)0517 (Given - Provider: Natalie Bailey, SWETHA) bisacodyL (Dulcolax) suppository 10 mg 10 mg, Rectal, DAILY, First dose on 11/03/20 at 1345, Until Discontinued, Perform digital stimulation 30 minutes after administration., Routine 0842 (Given - Provider: Deysi Austin, SWETHA) 1131 (Given - Provider: Yola Estrada, SWETHA) 0900 (Due) docusate sodium (Colace) (10 mg/mL) oral liquid 100 mg 100 mg, Per G Tube, 2 TIMES DAILY, First dose on Thu11/07/20 at 1400, Until Discontinued, Routine 0845 (Given - Provider: Deysi Austin RN)2124 (Given - Provider: Deysi Austin RN) 0959 (Given - Provider: Mike Lorenzo, SWETHA)211 (Given - Provider: Ten Dove RN) 0809 (Given - Provider: Eliane Lynch, SWETHA) heparin (porcine) (5,000 units/1 mL) subcutaneous injection 5,000 Units 5,000 Units, Subcutaneous, EVERY 8 HOURS SCHEDULED, First dose (after last modification) on Thu10/30/20 at 1700, Until Discontinued, Routine 0615 (Given - Provider: Ten Dove RN)1427 (Given - Provider: Tuyet Oliveira, SWETHA)213 (Given - Provider: Deysi Austin RN) 0604 (Given - Provider: Amelia Mora, SWETHA)143 (Given - Provider: Mike Lorenzo, SWETHA)2118 (Given - Provider: Ten Dove RN) 0518 (Given - Provider: Natalie Bailey, SWETHA) lactobacillus with pectin capsule 1 capsule 1 capsule, Oral, DAILY, First dose on Thu11/12/20 at 1515, Until Discontinued, Break capsule and administer contents via G tube with water or add to meals/thickened liquids, Routine 0845 (Given - Provider: Deysi Austin RN) 0959 (Given - Provider: Mike Lorenzo, SWETHA) 0809 (Given - Provider: Eliane Lynch, SWETHA) lidocaine (LIDODERM) 5 % patch 3 patch(Linked Group 1) 3 patch, Transdermal, EVERY 24 HOURS, First dose on Thu10/30/20 at 1030, Until Discontinued, Apply patch(es) for 12 hours, and then remove for 12 hours., Routine 1037 (Patch Applied - Provider: Deysi Austin RN) 0958 (Patch Applied - Provider: Mike Lorenzo RN) lidocaine (LIDODERM) patch REMOVAL(Linked Group 1) Transdermal, EVERY 24 HOURS, First dose on Thu10/30/20 at 2145, Until Discontinued, Remove lidocaine 5 %(700 mg/patch) patch 2144 (Patch Removed - Provider: Deysi Austin RN) 2144 (Patch Removed - Provider: Ten Dove RN) miconazole (MICOTIN) 2 % powder Topical (Top), 2 TIMES DAILY, First dose on Kathy 11/15/20 at 2100, Until Discontinued, Feet, hands 0845 (Given - Provider: Deysi Austin RN)2130 (Given - Provider: Deysi Austin RN) 1000 (Given - Provider: Mike Lorenzo RN)2120 (Given - Provider: Ten Dove, SWETHA) 0809 (Given - Provider: Eliane Lynch RN) protein powder 2 Scoop, Per G Tube, 3 TIMES DAILY, First dose on Thu11/14/20 at 1500, Until Discontinued, Routine 0853 (Given - Provider: Deysi Austin RN)1517 (Given - Provider: Deysi Austin RN)2130 (Given - Provider: Deysi Austin RN) 0900 (Given - Provider: Mike Lorenzo RN)1500 (Given - Provider: Mike Lorenzo RN)2100 (Given - Provider: Ten Dove, SWETHA) 0900 (Given - Provider: Eliane Lynch, SWETHA) senna (Senokot) tablet 34.4 mg 34.4 mg, Oral, DAILY, First dose on 11/17/20 at 0900, Until Discontinued, Routine 0845 (Given - Provider: Deysi Austin RN) 0958 (Given - Provider: Mike Lorenzo RN) 0809 (Given - Provider: Eliane Lynch RN) sodium chloride 0.9 % (flush) flush 5 mL 5 mL, Intravenous, 2 TIMES DAILY, First dose on 10/27/20 at 0900, Until Discontinued, Recovery (Recovery-Hospital Unit), Routine 0840 (Given - Provider: Deysi Austin RN)212 (Given - Provider: Deysi Austin RN) 0959 (Given - Provider: Mike Lorenzo RN)2120 (Given - Provider: Ten Dove RN) 0816 (Given - Provider: Eliane Lynch, SWETHA) sodium chloride 3 % nebulizer solution 15 mL 15 mL, Nebulization, 2 TIMES DAILY, First dose on Thu11/06/20 at 1215, Until Discontinued, Routine 0841 (Not Given - Provider: Deysi Austin RN - Reason: Patient/family refused)2100 (Not Given - Provider: Deysi Austin RN - Reason: Patient/family refused) 0959 (Not Given - Provider: Mike Lorenzo RN - Reason: Patient/family refused)211 (Given - Provider: Ten Dove, SWETHA) 0808 (Given - Provider: Eliane Lynch RN) Continuous Medication Order 11/18/2020 11/19/2020 11/20/2020 tube feeding diet () 1,080 mL, Per G Tube, at 45 mL/hr, CYCLIC, Starting on Thu11/18/20 at 1800, Until Thu11/19/20 at 0559, Administer flushes and check residuals per policy, Which tube feed product? Nutren 2.0, Initial Rate: (mL/hr): 20, Advance by: (mL): 20, Goal final rate: (mL/hr): 90 1818 (New Bag - Provider: Deysi Austin RN) 0604 (Stopped - Provider: Amelia Mora RN) tube feeding diet 1,080 mL, Per G Tube, at 45 mL/hr, CYCLIC, Starting on Thu11/19/20 at 1900, Until Thu11/20/20 at 0659, Administer flushes and check residuals per policy, Which tube feed product? Nutren 2.0, Initial Rate: (mL/hr): 20, Advance by: (mL): 20, Goal final rate: (mL/hr): 90 1810 (New Bag - Provider: Mike Lorenzo RN) 0600 (New Bag - Provider: Natalie Bailey RN) PRN Medication Order 11/18/2020 11/19/2020 11/20/2020 albuteroL (PROVENTIL) nebulizer solution 2.5 mg 2.5 mg, Nebulization, EVERY 4 HOURS PRN, Starting on 11/05/20 at 0943, Until Thu11/20/20 at 1230, Wheezing, Routine ipratropium-albuteroL (DUONEB) 0.5 mg-3 mg(2.5 mg base)/3 mL nebulizer solution 3 mL 3 mL, Nebulization, DAILY PRN, Starting on 11/11/20 at 1345, Until Thu11/20/20 at 1230, Wheezing, Routine lidocaine (Xylocaine) 1% (10 mg/mL) injection 3 mg 3 mg (0.3 mL), Subcutaneous, ONCE PRN, 1 dose, Starting on 10/27/20 at 0617, Until Thu11/20/20 at 1230, for discomfort with PIV insertion, Recovery (Recovery-Hospital Unit), Routine lidocaine (XYLOCAINE) 2 % jelly Topical (Top), EVERY 4 HOURS PRN, Pain, Starting on Kathy 11/01/20 at 1455, Until Thu11/20/20 at 1230 melatonin tablet 6 mg 6 mg, Per G Tube, NIGHTLY PRN, Starting on 11/10/20 at 2330, Until Thu11/20/20 at 1230, insomnia, Routine 2236 (Given - Provider: Natalie Bailey RN) naloxone (Narcan) (0.4 mg/mL) injection 0.2 mg 0.2 mg, Intravenous, EVERY 1 MIN PRN, Starting on 10/27/20 at 0617, Until Thu11/20/20 at 1230, Opioid Reversal, If respiratory rate less than 6 OR the patient is unable to arouse OR SpO2 is declining, Give for respiratory rate of less than or equal to 6 and patient is heavily sedated or unarousable. May repeat every 60 seconds to increase respiratory rate. DO NOT exceed 2 mg total dose., Recovery (Recovery-Hospital Unit), Routine ondansetron (pf) (Zofran) (2 mg/mL) injection 4 mg 4 mg, Intravenous, EVERY 8 HOURS PRN, Starting on Thu11/06/20 at 1156, Until Thu11/20/20 at 1230, Nausea sodium chloride 0.9 % (flush) flush 5-20 mL 5-20 mL, Intravenous, EVERY 1 MIN PRN, Starting on 10/27/20 at 0617, Until Thu11/20/20 at 1230, flush, Flush pertains to all indwelling lines. Flush per protocol found in the job aid using the link provided on this medication record., Recovery (Recovery-Hospital Unit), Routine tiZANidine (Zanaflex) tablet 4 mg 4 mg, Oral, 3 TIMES DAILY PRN, Starting on 11/16/20 at 1241, Until Thu11/20/20 at 1230, Muscle spasms, Routine 0010 (Given - Provider: Amelia Mora, RN)1748 (Given - Provider: Mike Lorenzo, SWETHA) traZODone (Desyrel) tablet 50 mg 50 mg, Oral, NIGHTLY PRN, Starting on 11/18/20 at 0724, Until Thu11/20/20 at 1230, Sleep, Routine 2123 (Given - Provider: Deysi Austin, SWETHA) 223 (Given - Provider: Natalie Bailey RN) Linked Groups Order Group 1: lidocaine (LIDODERM) 5 % patch 3 patchJump to med 3 patch, Transdermal, EVERY 24 HOURS, First dose on Thu10/30/20 at 1030, Until Discontinued, Apply patch(es) for 12 hours, and then remove for 12 hours., Routine And lidocaine (LIDODERM) patch REMOVALJump to med Transdermal, EVERY 24 HOURS, First dose on Thu10/30/20 at 2145, Until Discontinued, Remove lidocaine 5 %(700 mg/patch) patch documented in this encounter Additional Health Concerns Infection Onset Date Last Indicated Resolved Time Rule Out C. difficile 11/02/2020 11/04/20202020 3:56 PM EST documented as of this encounter Care Teams Nursing Teacher Relationship Specialty Start Date End Date Rayna Hoover, [address] [place] [address] PCP - General Family Medicine 07/01/18 08/21/21 documented as of this encounter
--- OUTSIDE RECORDS SUMMARY | 2024-07-22 15:09 | XMS_ITS | Encounter Summary ---
Author Organization [facility] [place] [address] Care Team Providers Care Cognos Architect Name Role Phone Rayna Pino APRN Primary Care Provider [phone] Reason for Visit * Auth/Cert Specialty Diagnoses / Procedures Referred By Contac t Referred To Contact Diagnoses Cervical spine fracture Hypothermia, initial encounter Alcoholic intoxication without complication Closed displaced fracture of sixth cervical vertebra, unspecified fracture morphology, initial encounter Trauma Alert Procedures EMERGENCY IPI Referral ID Status Reason Start Date Expiration Date Visits Re quested Visits Authorized [id number] 1 1 Encounter Details Date Type Department Care Team (Late st Contact Info) Description 10/27/2020 8:08 AM EST Anesthesia Event [place] [address] Mariana Rojas MD [facility] [place] [address] Piero Ospina MD [facility] [place] [address] Anesthesia Record Procedure Summary Procedure Name Responsible Anesthesiologist Anesthesia Start Time Anesthesia Stop Time @ARTHRODESIS, POSTERIOR CERVICAL SPINE (WRVU 17.4) (Midline: Spine Cervical) Mariana Rojas MD 10/27/20 0808 10/27/20 1308 Events Date Time Event Comment 10/27/2020 0808 AN Verify 0808 Start 0808 An Start Data 0811 An Induction 0815 An Intubation 0825 Quick Note pins 0841 Anesthesia Ready 0911 Procedure Start 0928 ABG Data Arterial Blood Gas result: pH 7.260 pCO2 44.7 pO2 182.6 %O2 Sat 100% FiO2 43% HCO3 19.6 BE -7.5 Hb 13.5 K 4.27 Glucose 103 Lactate 2.22 1027 ABG Data Arterial Blood Gas result: pH 7.298 pCO2 41.4 pO2 142.5 %O2 Sat 100% FiO2 42% HCO3 19.8 BE -6.6 Hb 13 K 4.60 Glucose 101 Lactate 1.52 1129 ABG Data Arterial Blood Gas result: pH 7.293 pCO2 43 pO2 159.5 %O2 Sat 100% FiO2 42% HCO3 -20.4 BE -6.2 Hb 13 K 5.06 Glucose 105 Lactate 1.42 1259 an stop data 1300 an stop data 1308 Recovery or ICU Handoff Irma ent care was transferred to the destination unit staff after review of the patient's medical history, current anesthetic/surgical status and plan, according to the Provider Handoff Checklist. 1308 Stop 1312 Meds Name Total fentaNYL 100 mcg IV Lidocaine 100 mg Propofol 200 mg Rocuronium 250 mg PHENYLephrine 960 mcg ePHEDrine 10 mg Ondansetron 8 mg Dexamethasone 8 mg Propofol INF 715.49 mg PHENYLephrine INF 13,300 mcg ceFAZolin 4 g Tranexamic Acid 1,390 mg Tranexamic Acid INF 295.41 mg HYDROmorphone 2 mg Lactated Ringers 1,400 mL Lactated Ringers 2,300 mL * Agents Name O2 Air N2O Sevoflurane (et) * Blood No blood administrations on file. Lines, Drains, and Airways Type Details Placement Removal (RETIRED) Peripheral IV Line - Single Lumen 10/26/20; cephalic vein (lateral side of arm), right; 18 gauge; osh; removed per patient, catheter/device intact; 10/29/20; 0500 10/26/20 0000 by Iain Awan RN 10/29/20 0500 by Karen Driver RN (RETIRED) Peripheral IV Line - Single Lumen 10/26/20; cephalic vein (lateral side of arm), left; 18 gauge; osh; removed per patient, catheter/device intact; 10/29/20; 0500 10/26/20 0000 by Iain Awan, RN 10/29/20 0500 by Karen Driver RN Urethral Catheter 10/26/20; Physician order, Need for intraoperative urine output monitoring; Immobility without alternative; indwelling catheter with core temperature probe; present on admission to this facility; 11/18/20; 1010 10/26/20 0000 by Iain Awan, RN 11/18/20 1010 by All Nath LNA Incision 10/27/20; cervical s pine; 06/30/22 (LDA cleanup utility RA#[id number]); 1715 (LDA cleanup utility RA#[id number]) 10/27/20 0000 by Cami Alvarado RN 06/30/22 1715 by Tony Junior Drain/Device Site 10/27/20; Right; posterior; cervical spine; autotransfusion system; Surgeon; LDA not present upon assessment; 10/30/20; 0700 10/27/20 0000 by Cami Alvarado RN 10/30/20 0700 by Carroll Stuart RN ETT Mask Ventilation: Ad junct (2); ETT Size: 8 mm; Indirect: Video; Notes: Asleep, Pre-O2, Stylette; Attempts: 1; Laryngoscopy Grade: 1; ETT Placement Verified By: Auscultation, Capnometry, Visual; Secured at Teeth: 23 cm; Inserted by: Luz Razo CRNA; Removal Date: 10/28/20; Removal Time: 1410 10/27/20 0815 by Luz Razo CRNA 10/28/20 1410 by Massiel Kiran RCP Arterial Line 10/27/20; 0828; radi al artery, left; 20 gauge; Luz Razo CRNA; Sterile Prep, Sterile Gloves; no longer indicated; 10/31/20; 1226 10/27/20 0828 by Luz Razo CRNA 10/31/20 1226 by Angie Lambert RN documented in this encounter Social History [...] OR Notes * Anesthesia Postprocedure Evaluation - Mariana Rojas MD - 10/27/2020 1:12 PM EST Department of Anesthesiology Post-procedure Note Patient: Bruce Velasquez Jr. Procedure Summary Date: 10/27/20 Room / Location: [facility] OR [address] [place] [address] MAIN OR Anesthesia Start: 807 Anesthesia Stop: 1307 Procedures: @ARTHRODESIS, POSTERIOR CERVICAL SPINE (WRVU 17.4) (Midline Spine Cervical) ARTHRODESIS, POSTERIOR VERTEBRAL EA.ADD. SEGMENT (WRVU 6.43) (N/A ) POST SPINAL INSTRUMENTATION, 3-6 VERTEBRA, NON SEGMENTAL (WRVU 12.56) (N/A Spine Lumbar) AUTOGRAFT FOR SPINE SURGERY ONLY, SAME INCISION (WRVU *) (N/A ) ALLOGRAFT FOR SPINE SURGERY ONLY; MORSELIZED (WRVU *) (N/A ) PLACEMENT-CRANIAL TONGS (INCLUDING REMOVAL) (WRVU 4) (N/A Head) @OPEN TREATMENT &/OR REDUCTION VERTEBRAL FX., CERVICAL (WRVU 20.84) (N/A Spine Cervical) MODIFIER,POSTERIOR CERVICAL INFINITY OCCIPITAL MEDTRONIC (N/A ) Diagnosis: (C6-7 facet dislocation) Surgeon: Robbin Tong MD Responsible Provider: Mariana Rojas MD Anesthesia Type: general ASA Status: 3 All Anesthesia Providers: Anesthesiologist: Mariana Rojas MD RESEARCH & ANALYTICS MANAGER: Luz Razo CRNA Vitals Value Taken Time BP Temp Pulse Resp SpO2 Pain Level Patient Location: ICU Level of Consciousness: Sedated (Pharmacologic/Intentional) Pain Management: Satisfactory Analgesia PONV: None Cardiovascular Status: Hemodynamically Stable Respiratory Status: Stable Respiratory Status and Intubated/Ventilated Postoperative Fluid Status: Intravascular EUvolemia Possible Anesthetic Complications: NONE apparent at time of evaluation Final Primary Anesthesia Type: General (The anesthetic type performed was the same as planned.) Comments: Mariana Rojas MD * Anesthesia Preprocedure Evaluation - Mariana Rojas MD - 10/27/2020 1:11 PM EST Pre-Anesthesia Evaluation for: Bruce Velasquez Jr. a 55 y.o. male. Procedure(s): @ARTHRODESIS, POSTERIOR CERVICAL SPINE (WRVU 17.4) ARTHRODESIS, POSTERIOR VERTEBRAL EA.ADD. SEGMENT (WRVU 6.43) POST SPINAL INSTRUMENTATION, 3-6 VERTEBRA, NON SEGMENTAL (WRVU 12.56) AUTOGRAFT FOR SPINE SURGERY ONLY, SAME INCISION (WRVU *) ALLOGRAFT FOR SPINE SURGERY ONLY; MORSELIZED (WRVU *) PLACEMENT-CRANIAL TONGS (INCLUDING REMOVAL) (WRVU 4) @OPEN TREATMENT &/OR REDUCTION VERTEBRAL FX., CERVICAL (WRVU 20.84) MODIFIER,POSTERIOR CERVICAL INFINITY OCCIPITAL MEDTRONIC Patient Active Problem List Diagnosis ??? Cervical spine fracture ??? Superficial skin infection History reviewed. No pertinent past medical history. History reviewed. No pertinent surgical history. Social History Tobacco Use ??? Smoking status: [...] From SP02 Pulse Resp BP SpO2 O2 Flow Rate (L/min) O2 Device 10/26/20 2300 -- -- 60 -- 107/58 93 % -- RA 10/26/20 2317 (!) 34.5 ??C (94.1 ??F) 67 bpm 70 25 117/85 96 % -- RA 10/26/20 2324 (!) 34.5 ??C (94.1 ??F) 68 bpm 68 21 -- 92 % -- -- 10/26/20 2345 -- -- -- -- (!) 165/95 -- -- -- 10/26/20 2351 (!) 34.7 ??C (94.5 ??F) 71 bpm -- -- -- 98 % -- -- 10/27/20 0000 (!) 34.7 ??C (94.5 ??F) 63 bpm -- -- (!) 168/140 97 % -- -- 10/27/20 0010 (!) 34.8 ??C (94.6 ??F) 68 bpm 67 22 93/43 94 % -- -- 10/27/20 0015 -- 67 bpm 67 19 98/72 93 % -- -- 10/27/20 0016 (!) 34.6 ??C (94.3 ??F) 71 bpm 71 18 107/69 94 % -- -- 10/27/20 0028 35.1 ??C (95.2 ??F) 69 bpm 69 14 -- 90 % -- RA 10/27/20 0030 35.1 ??C (95.2 ??F) 65 bpm 66 15 113/56 95 % 2 L/min NC 10/27/20 0045 35.3 ??C (95.5 ??F) 68 bpm 68 15 116/67 98 % -- -- 10/27/20 0100 35.5 ??C (95.9 ??F) 67 bpm 69 19 118/68 98 % -- -- 10/27/20 0115 35.7 ??C (96.3 ??F) 71 bpm 71 15 113/63 97 % -- -- 10/27/20 0139 36.1 ??C (97 ??F) 79 bpm 77 22 127/68 98 % -- -- 10/27/20 0200 36.4 ??C (97.5 ??F) 71 bpm 70 16 127/74 99 % -- -- 10/27/20 0215 36.5 ??C (97.7 ??F) 72 bpm 72 15 116/72 99 % -- -- 10/27/20 0230 36.5 ??C (97.7 ??F) 76 bpm 67 18 125/73 98 % -- -- 10/27/20 0245 36.5 ??C (97.7 ??F) 69 bpm 69 16 111/70 100 % -- -- 10/27/20 0300 36.5 ??C (97.7 ??F) 72 bpm 70 18 100/84 100 % -- -- 10/27/20 0315 36.6 ??C (97.9 ??F) 65 bpm 65 19 124/83 99 % -- -- 10/27/20 0330 36.6 ??C (97.9 ??F) 68 bpm 68 16 120/79 100 % -- -- 10/27/20 0345 36.5 ??C (97.7 ??F) 81 bpm 82 14 125/86 98 % -- RA 10/27/20 0400 36.4 ??C (97.5 ??F) 75 bpm 76 12 -- 98 % -- -- 10/27/20 0415 36.3 ??C (97.3 ??F) 78 bpm 78 15 (!) 146/97 96 % -- -- 10/27/20 0430 36.2 ??C (97.2 ??F) 83 bpm 85 21 141/90 97 % -- -- 10/27/20 0500 35.8 ??C (96.4 ??F) 90 bpm 89 16 121/69 94 % -- -- 10/27/20 0540 -- 73 bpm -- 18 132/65 96 % -- RA 10/27/20 0609 36.5 ??C (97.7 ??F) 70 bpm 70 -- 111/64 94 % -- RA 10/27/20 0615 -- 69 bpm 68 -- 106/64 94 % -- RA 10/27/20 0630 -- 62 bpm 62 -- 109/61 94 % -- RA 10/27/20 0700 -- 65 bpm 65 -- 114/70 96 % -- RA 10/27/20 0800 36.4 ??C (97.5 ??F) 67 bpm 66 19 -- 98 % -- RA Body mass index is 26.26 kg/m??. Height: 188 cm (6' 2.02) Weight: 92.8 kg (204 lb 9.4 oz) Airway Assessment: Mallampati: IV Cardiovascular Assessment: Rhythm: regular Pulmonary Assessment: unlabored breathing Dental Assessment: Misc Assessment: Anesthesia Plan: ASA 3 general, with a(n) intravenous induction 55 yo malse s/o fall presents for repair cervical spine. In C-collar Plan GETA with standard ASA monitors and adequate IV access, arterial line, prone with pins Region - Other Informed Consent: Plan discussed with resident, attending and RESEARCH & ANALYTICS MANAGER. PAT Clinic Note documented in this encounter Plan of Treatment Not on file documented as of this encounter Visit Diagnoses Not on filedocumented in this encounter Administered Medications Inactive Administered Medications - up to 3 most recent administrations Medication Order MAR Action Action Date Dose Rate Site ceFAZolin (Ancef) 1 g in dextrose 5% 50 mL infusion PRN, Starting on 10/27/20 at 0841, Until 10/27/20 at 1310, Administer over 30 Minutes, Anesthesia Intra-op Given 10/27/2020 12:33 PM EST 2 g Given 10/27/2020 8:41 AM EST 2 g dexamethasone (Decadron) injection PRN, Starting on 10/27/20 at 0841, Until 10/27/20 at 1310, Anesthesia Intra-op, Routine Given 10/27/2020 8:41 AM EST 8 mg ePHEDrine (pf) (5 mg/mL) multi-dose injection PRN, Starting on 10/27/20 at 0833, Until 10/27/20 at 1310, Anesthesia Intra-op, Routine Given 10/27/2020 8:33 AM EST 10 mg fentaNYL (pf) (50 mcg/mL) multi-dose injection PRN, Starting on 10/27/20 at 0912, Until 10/27/20 at 1310, Anesthesia Intra-op, Routine Given 10/27/2020 9:48 AM EST 50 mcg Given 10/27/2020 9:12 AM EST 50 mcg HYDROmorphone (Dilaudid) (2 mg/mL) multi-dose injection solution PRN, Starting on 10/27/20 at 1138, Until 10/27/20 at 1310, Anesthesia Intra-op, Routine Given 10/27/2020 12:16 PM EST 1 mg Given 10/27/2020 12:12 PM EST 0.6 mg Given 10/27/2020 11:38 AM EST 0.4 mg lactated ringers infusion CONTINUOUS PRN, Starting on 10/27/20 at 0808, Until 10/27/20 at 1310, Anesthesia Intra-op New Bag 10/27/2020 9:52 AM EST New Bag 10/27/2020 8:08 AM EST lactated ringers infusion CONTINUOUS PRN, Starting on 10/27/20 at 0835, Until 10/27/20 at 1310, Anesthesia Intra-op New Bag 10/27/2020 11:24 AM EST New Bag 10/27/2020 10:21 AM EST New Bag 10/27/2020 8:35 AM EST lidocaine (pf) (Xylocaine) (20 mg/mL) 2% injection syringe PRN, Starting on 10/27/20 at 0812, Until 10/27/20 at 1310, Anesthesia Intra-op, Routine Given 10/27/2020 8:12 AM EST 100 mg ondansetron (pf) (Zofran) (2 mg/mL) injection PRN, Starting on 10/27/20 at 0841, Until 10/27/20 at 1310, Anesthesia Intra-op, Routine Given 10/27/2020 12:04 PM EST 4 mg Given 10/27/2020 8:41 AM EST 4 mg PHENYLephrine (BIRD-SYNEPHRINE) 20 mg in sodium chloride 250 mL (standard ADULT & Pedi greater than 20kg) infusion CONTINUOUS PRN, Starting on 10/27/20 at 0834, Until 10/27/20 at 1310, Anesthesia Intra-op, Routine Restarted 10/27/2020 12:19 PM EST 60 mcg/min 45 mL/hr Rate/Dose Change 10/27/2020 12:11 PM EST 30 mcg/min 22.5 m L/hr Rate/Dose Change 10/27/2020 11:02 AM EST 60 mcg/min 45 mL/ hr PHENYLephrine in NS (PF) (BIRD-SYNEPHRINE) 0.8 mg/10 mL (80 mcg/mL) multi-dose injection Syrg PRN, Starting on 10/27/20 at 0821, Until 10/27/20 at 1310, Anesthesia Intra-op, Routine Given 10/27/2020 11:29 AM EST 80 mcg Given 10/27/2020 10:07 AM EST 80 mcg Given 10/27/2020 8:33 AM EST 160 mcg propofoL (Diprivan) 10 mg/mL bolus injection (Anesthesia) PRN, Starting on 10/27/20 at 0812, Until 10/27/20 at 1310, Anesthesia Intra-op Given 10/27/2020 8:12 AM EST 200 mg propofoL (Diprivan) infusion CONTINUOUS PRN, Starting on 10/27/20 at 0839, Until 10/27/20 at 1310, Anesthesia Intra-op, Routine Restarted 10/27/2020 12:13 PM EST 30 mcg/kg/min 16.7 mL/hr New Bag 10/27/2020 8:39 AM EST 30 mcg/kg/min 16.7 mL/hr rocuronium (Zemuron) (10 mg/mL) multi-dose injection PRN, Starting on 10/27/20 at 0812, Until 10/27/20 at 1310, Anesthesia Intra-op, Routine Given 10/27/2020 11:36 AM EST 30 mg Given 10/27/2020 11:05 AM EST 20 mg Given 10/27/2020 10:24 AM EST 30 mg tranexamic acid (Cyklokapron) (100 mg/mL) infusion Administer over 8 Hours, CONTINUOUS PRN, Starting on 10/27/20 at 0934, Until 10/27/20 at 1310, Anesthesia Intra-op, Routine New Bag 10/27/2020 9:34 AM EST 1 mg/kg/hr 0.9 mL/hr tranexamic acid (Cyklokapron) (100 mg/mL) IV bolus Administer over 8 Hours, PRN, Starting on 10/27/20 at 0915, Until 10/27/20 at 1310, Anesthesia Intra-op, Routine Given 10/27/2020 9:15 AM EST 1,390 mg documented in this encounter Care Teams Cognos Architect Relationship Specialty Start Date End Date Rayna Pino, CHILD WELFARE SOCIAL WORKER [address] [place] [address] PCP - General Family Medicine 07/01/18 08/21/21 documented as of this encounter
--- OUTSIDE RECORDS SUMMARY | 2024-07-22 15:09 | XMS_ITS | Encounter Summary ---
Author Organization [facility] Address [facility] [place] [address] Care Team Providers Care Electrical Estimator Name Role Phone Rayna Pino APRN Primary Care Provider [phone] Encounter Details Date Type Department Care Team (Late st Contact Info) Description 10/31/2020 Orders [place] [id number] Ten Leija MD [facility] [place] [address] S/P C4-T2 PSIF for C6-7 bilateral facet [...] on file documented as of this encounter Results * XR Cervical Spine [...] abnormality. Procedure Note Jose Joaquin MD - 01/30/2021 EXAMINATION: XR CERVICAL SPINE 2 OR 3 [...] your doctor prior to speaking to [facility]. Electronically signed by: Jose Joaquin [facility], [facility] [place] ([phone]), at 01/30/2021 10:06 AM Robbin Tong MD IMG DX ORDERABLES documented in this encounter Visit Diagnoses Diagnosis S/P C4-T2 PSIF for C6-7 bilateral facet dislocation 10/27/20 Dr. Tong Arthrodesis status S/P C4-T2 PSIF for C6-7 bilateral facet dislocation 10/27/20 Dr. Tong Arthrodesis status documented in this encounter Care Teams Electrical Estimator Relationship Specialty Start Date End Date Rayna Pino, [place] [address] [place] [address] PCP - General Family Medicine 07/01/18 08/21/21 documented as of this encounter
--- OUTSIDE RECORDS SUMMARY | 2024-07-22 15:09 | XMS_ITS | Encounter Summary ---
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 4.58 - 5.54 x10(6)/mc L [facility] Hemoglobin 11.6(L) 13.7 - 16.5 gm/dL [...] CENTER LABORATORY Platelet 211 145 - 357 x10(3)/mc L [facility] RDW Standard Deviation 43.8 36.0 - 45.0 fL [facility] RDW coefficient of variation 13.0 11.4 - 13.8 % [facility] Mean Platelet Volume 11.4 7.6 - 12.9 fL [facility] NRBC% auto 0.0 % [facility] NRBC Absolute 0.000 0.000 - 0.000 x10(3)/mc L [facility] Blood specimen (specimen) 11/20/2020 12:40 AM EST 11/20/2020 12:46 AM EST Narrative Resulting Agency Comment Spec In Lab Mikayla Loomis MD HEMATOLOGY ORDERABLE S Performing Organization Address City/State/[facility] Co de Phone Number [facility] [place] [address] * (ABNORMAL) Basic Metabolic Panel (non-fasting) (11/20/2020 [...] Resulting Agency Comment Spec In Lab Yoel Medellin MD CHEMISTRY ORDERABLES [facility] [place] [id number] * COVID-19 PCR (11/19/2020 11:06 AM EST) [...] using the Simplexa COVID-19 Direct Assay by [employer] as authorized by the FDA issued Emergency [...] Department of Pathology and Laboratory Medicine at [facility], certified under the Clinical Laboratory Improvement [...] fact sheets at the following FDA website: https://www.fda.gov/medical-devices/wuldkjfgmgq-uuhdifc-2554-gcrvy-83-aphgwswia- use-a jmnpiogpurmgs-otbeebm-gudchvs/hqavr-wcavinedchf-utuo SARS-CoV-2 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 [facility] Nasopharyngeal swab (specimen) 11/19/2020 11:06 AM EST 11/19/2020 11:38 AM EST Comment:Symptoms->Surveillan ce Narrative Resulting Agency Comment Spec In Lab Thom Lemon MD MICROBIOLOGY - GENER AL ORDERABLES [facility] [place] [address] * Differential, Automated (11/17/2020 12:11 AM EST) Neutrophil % 67.1 % [facility] Neutrophil Absolute 4.24 1.70 - 6.10 x10(3)/[facility] Lymph % 20.5 % [facility] Lymphocytes Abs 1.3 0.9 - 3.2 x10(3)/[facility] Monocyte % 8.8 % [facility] Monocyte Abs 0.6 0.3 - 0.9 x10(3)/[facility] Eos % 2.7 % [facility] Eosinophils Abs 0.2 0.0 - 0.4 x10(3)/[facility] Basophil % 0.3 % [facility] Baso Absolute 0.0 0.0 - 0.1 x10(3)/[facility] Immature Gran % 0.60 % [facility] Comment: Immature granulocytes(IG's)percentage and absolute count will include metamyelocytes, myelocytes, and promyelocytes. Blood smears from CBCs yielding IG's will be scanned manually for concordance. If this scan disagrees with the automated IG or if promyelocytes are noted, a manual differential will be performed. Immature Gran Absolute 0.04 0.00 - 0.04 x10(3)/[facility] Blood specimen (specimen) 11/17/2020 12:11 AM EST 11/17/2020 12:38 AM EST Narrative Resulting Agency Comment Spec In Lab Norberto Gonzalez MD HEMATOLOGY ORDERABLE S [facility] [place] [address] * (ABNORMAL) Hemogram (11/17/2020 12:11 AM EST) White Blood Cell 6.3 4.0 - 9.5 [...] Mean Cell Volume 92.5 82.9 - 93.1 [facility] Mean Cell Hemoglobin 30.4 27.5 - 32.1 pg [facility] Mean Cell Hemoglobin Concentration 32.8 32.0 - 35.7 gm/dL [facility] Platelet 223 145 - 357 x10(3)/mc L [facility] RDW Standard Deviation 42.6 36.0 - 45.0 [facility] RDW coefficient of variation 12.8 11.4 - 13.8 % [facility] Mean Platelet Volume 11.1 7.6 - 12.9 [facility] NRBC% auto 0.0 % [facility] NRBC Absolute 0.000 0.000 - 0.000 x10(3)/mc L [facility] Blood specimen (specimen) 11/17/2020 12:11 AM EST 11/17/2020 12:38 AM EST Narrative Resulting Agency Comment Spec In Lab Norberto Gonzalez MD HEMATOLOGY ORDERABLE S Performing Organization Address City/[facility]/ZIP Co de Phone Number [facility] [place] [address] * Phosphorus (11/17/2020 12:11 AM EST) Phosphorus 4.0 2.5 - 4.5 mg/dL [facility] Blood specimen (specimen) 11/17/2020 12:11 AM EST 11/17/2020 12:38 AM EST Narrative Resulting Agency Comment Spec In Lab Radha Bolden MD CHEMISTRY ORDERABLES Performing Organization Address City/[facility]/ZIP Co de Phone Number [facility] [place] [address] * Magnesium (11/17/2020 12:11 AM EST) Magnesium 0.77 0.69 - 1.07 mmol/L [facility] Blood specimen (specimen) 11/17/2020 12:11 AM EST 11/17/2020 12:38 AM EST Narrative Resulting Agency Comment Spec In Lab Radha Bolden MD CHEMISTRY ORDERABLES [facility] [place] [address] * (ABNORMAL) Basic Metabolic Panel (non-fasting) (11/17/2020 12:11 AM EST) Glucose 121 65 - 199 [...] [facility] [place] [address] * XR PICC Placement Over 5 Years [...] the number below. ? Electronically signed by: Natalie Ann MD, [facility] ([phone]), at 11/16/2020 4:20 PM Narrative 11/16/2020 4:20 PM EST EXAMINATION: XR [...] contact the number below. Electronically signed by: Natalie Ann MD, [facility]([phone]), at 11/16/2020 4:20 PM Yoel Medellin MD IMG FLUORO ORDERABLE S * PICC Line Rewire Is PICC procedure required PRIOR to patients discharge? No (11/16/2020 3:27 PM EST) Narrative Justus Ballard, SWETHA - 11/16/2020 3:27 PM EST Justus Ballard, SWETHA ? 11/16/2020 ??3:54 PM PICC/Midline Insertion Procedure [...] to the planned procedure. Hand Hygiene: The telemarketer did perform hand hygiene prior to line insertion. Catheter type: PICC Lot number: [id number] Procedure Technique: Skin was prepped with chlorhexidine. [...] down to 1 Justus Ballard RN 11/16/2020 Yoel Medellin MD PROCEDURE/MINOR SURG ICAL ORDERABLES * (ABNORMAL) Differential, Automated (11/16/2020 12:31 AM EST) Neutrophil % 64.5 % [facility] Neutrophil Absolute 4.80 1.70 - 6.10 x10(3)/mc L [facility] Lymph % 23.5 % [facility] Lymphocytes Abs 1.8 0.9 - 3.2 x10(3)/mc L [facility] Monocyte % 7.9 % [facility] Monocyte Abs 0.6 0.3 - 0.9 x10(3)/mc L [facility] Eos % 2.7 % [facility] Eosinophils Abs 0.2 0.0 - 0.4 x10(3)/mc L [facility] Basophil % 0.5 % [facility] Baso Absolute 0.0 0.0 - [...] MD HEMATOLOGY ORDERABLE S Performing Organization Address City/State/[facility] Co de Phone Number [facility] [place] [address] * (ABNORMAL) Hemogram (11/16/2020 12:31 AM EST) White Blood Cell 7.4 4.0 - 9.5 x10(3)/mc L [facility] NRBC% auto 0.0 % [facility] NRBC Absolute 0.000 0.000 - 0.000 x10(3)/mc L [facility] Blood specimen (specimen) 11/16/2020 12:31 AM EST 11/16/2020 12:38 AM EST Narrative Resulting Agency Comment Spec In Lab Norberto Gonzalez MD HEMATOLOGY ORDERABLE S Performing Organization Address City/[facility]/ZIP Co de Phone Number [facility] [place] [address] * Phosphorus (11/16/2020 12:31 AM EST) Phosphorus 4.4 2.5 - 4.5 mg/dL [facility] Blood specimen (specimen) 11/16/2020 12:31 AM EST 11/16/2020 12:38 AM EST Narrative Resulting Agency Comment Spec In Lab Radha Bolden MD CHEMISTRY ORDERABLES Performing Organization Address [facility] Co de Phone Number [facility] [place] [address] * Magnesium (11/16/2020 12:31 AM EST) Magnesium 0.78 0.69 - 1.07 mmol/L [facility] Blood specimen (specimen) 11/16/2020 12:31 AM EST 11/16/2020 12:38 AM EST Narrative Resulting Agency Comment Spec In Lab Rdaha Bolden MD CHEMISTRY ORDERABLES Performing Organization Address [facility] Co de Phone Number [facility] [place] [address] * (ABNORMAL) Basic Metabolic Panel (non-fasting) (11/16/2020 [...] [facility] [place] [address] * XR Shoulder Left (Generic) (11/15/2020 7:01 [...] ? Electronically signed by: Eliane Stewart MD, [facility] ([phone]), at 11/15/2020 7:36 PM Narrative 11/15/2020 7:36 [...] contact the number below. Electronically signed by: Eliane Stewart MD, [facility]([phone]), at 11/15/2020 7:36 PM Yoel Medellin MD IMG DX ORDERABLES * XR [...] ? Electronically signed by: Crys Joaquin MD, [facility] ([phone]), at 11/15/2020 3:57 PM Narrative 11/15/2020 3:57 [...] contact the number below. Electronically signed by: Crys Joaquin MD, [facility]([phone]), at 11/15/2020 3:57 PM Yoel Medellin MD IMG DX ORDERABLES * XR Wrist 3 Views Left (11/15/2020 2:58 PM EST) Anatomical Region Laterality Modality Left Digital Radiogra phy Impressions 11/15/2020 3:08 PM EST No acute osseous pathology. Osteoarthritis of the wrist. Thank you for letting us participate in the care of this patient. For questions regarding this report, please contact the number below. ? Electronically signed by: Tre Mendez MD, [facility] ([phone]), at 11/15/2020 3:08 PM Narrative 11/15/2020 3:08 PM EST EXAMINATION: XR [...] the first carpal metacarpal joint. Procedure Note Ter Mendez MD - 11/15/2020 EXAMINATION: XR WRIST [...] contact the number below. Electronically signed by: Tre Mendez MD, [facility]([phone]), at 11/15/2020 3:08 PM Yoel Medellin MD IMG DX ORDERABLES * (ABNORMAL) Differential, Automated (11/15/2020 2:18 AM EST) Neutrophil % 62.5 % [facility] Neutrophil Absolute 4.66 1.70 - 6.10 x10(3)/ L [facility] Lymph % 25.2 % [facility] Lymphocytes Abs 1.9 0.9 - 3.2 x10(3)/ L [facility] Monocyte % 8.6 % [facility] Monocyte Abs 0.6 0.3 - 0.9 x10(3)/ L [facility] Eos % 2.1 % [facility] Eosinophils Abs 0.2 0.0 - 0.4 x10(3)/[facility] Basophil % 0.7 % [facility] Baso Absolute 0.0 0.0 - [...] [facility] [place] [address] * (ABNORMAL) Hemogram (11/15/2020 2:18 AM EST) Pathologist [facility] White Blood Cell 7.5 4.0 - 9.5 [...] RDW Standard Deviation 43.1 36.0 - 45.0 [facility] RDW coefficient of variation 12.7 11.4 - 13.8 % [facility] Mean Platelet Volume 10.5 7.6 - 12.9 fL [facility] NRBC% auto 0.0 % [facility] NRBC Absolute 0.000 0.000 - 0.000 x10(3)/ L [facility] Blood specimen (specimen) 11/15/2020 2:18 AM EST 11/15/2020 2:30 AM EST Narrative Resulting Agency Comment Spec In Lab Norberto Gonzalez MD HEMATOLOGY ORDERABLE S [facility] [place] [address] * Phosphorus (11/15/2020 2:18 AM EST) Pathologist [facility] Phosphorus 4.0 2.5 - 4.5 mg/dL [facility] Blood specimen (specimen) 11/15/2020 2:18 AM EST 11/15/2020 2:30 AM EST Narrative Resulting Agency Comment Spec In Lab Radha Bolden MD CHEMISTRY ORDERABLES Performing Organization Address [facility] Co de Phone Number [facility] [place] [address] * Magnesium (11/15/2020 2:18 AM EST) Magnesium 0.77 0.69 - 1.07 mmol/L [facility] Blood specimen (specimen) 11/15/2020 2:18 AM EST 11/15/2020 2:30 AM EST Narrative Resulting Agency Comment Spec In Lab Radha Bolden MD CHEMISTRY ORDERABLES Performing Organization Address [facility] Co de Phone Number [facility] [place] [address] * (ABNORMAL) Basic Metabolic Panel (non-fasting) (11/15/2020 [...] [facility] [place] [address] * (ABNORMAL) Differential, Automated (11/14/2020 1:12 AM EST) Neutrophil % 70.5 % [facility] Neutrophil Absolute 5.25 1.70 - 6.10 x10(3)/mc L [facility] Lymph % 18.8 % [facility] Lymphocytes Abs 1.4 0.9 - 3.2 x10(3)/mc L [facility] Monocyte % 6.8 % [facility] Monocyte Abs 0.5 0.3 - 0.9 x10(3)/mc L [facility] Eos % 2.7 % [facility] Eosinophils Abs 0.2 0.0 - 0.4 x10(3)/mc L [facility] Basophil % 0.4 % [facility] Baso Absolute 0.0 0.0 - 0.1 x10(3)/ L [facility] Immature Gran % 0.80 % [facility] [...] Absolute 0.06(H) 0.00 - 0.04 x10(3)/ L [facility] Blood specimen (specimen) 11/14/2020 1:12 AM EST 11/14/2020 1:31 AM EST Narrative Resulting Agency Comment Spec In Lab Norberto Gonzalez MD HEMATOLOGY ORDERABLE S Performing Organization Address City/State/[facility] Co de Phone Number [facility] [place] [address] * (ABNORMAL) Hemogram (11/14/2020 1:12 AM EST) White Blood Cell 7.4 4.0 - 9.5 x10(3)/ L [facility] Red Blood Cell 3.39(L) 4.58 [...] CENTER LABORATORY Platelet 314 145 - 357 x10(3)/ L [facility] RDW Standard Deviation 42.7 36.0 - 45.0 fL [facility] RDW coefficient of variation 12.5 11.4 - 13.8 % [facility] Mean Platelet Volume 10.7 7.6 - 12.9 fL [facility] NRBC% auto 0.0 % [facility] NRBC Absolute 0.000 0.000 - 0.000 x10(3)/mc L [facility] Blood specimen (specimen) 11/14/2020 1:12 AM EST 11/14/2020 1:31 AM EST Narrative Resulting Agency Comment Spec In Lab Norberto Gonzalez MD HEMATOLOGY ORDERABLE S Performing Organization Address City/[facility]/ZIP Co de Phone Number [facility] [place] [address] * Phosphorus (11/14/2020 1:12 AM EST) Phosphorus 4.1 2.5 - 4.5 mg/dL [facility] Blood specimen (specimen) 11/14/2020 1:12 AM EST 11/14/2020 1:31 AM EST Narrative Resulting Agency Comment Spec In Lab Radha Bolden MD CHEMISTRY ORDERABLES Performing Organization Address City/[facility]/ZIP Co de Phone Number [facility] [place] [address] * Magnesium (11/14/2020 1:12 AM EST) Magnesium 0.77 0.69 - 1.07 mmol/L [facility] Blood specimen (specimen) 11/14/2020 1:12 AM EST 11/14/2020 1:31 AM EST Narrative Resulting Agency Comment Spec In Lab Radha Bolden MD CHEMISTRY ORDERABLES Performing Organization Address [facility] [facility] Co de Phone Number [facility] [place] [address] * (ABNORMAL) Basic Metabolic Panel (non-fasting) (11/14/2020 [...] [facility] [place] [address] * (ABNORMAL) Differential, Automated (11/13/2020 3:58 AM EST) Pathologist [facility] [place] Neutrophil % 72.9 % [facility] Neutrophil Absolute 6.82(H) 1.70 - 6.10 x10(3)/mc L [facility] Lymph % 16.4 % [facility] Lymphocytes Abs 1.5 0.9 - 3.2 x10(3)/mc L [facility] Monocyte % 6.8 % [facility] Monocyte Abs 0.6 0.3 - 0.9 x10(3)/ L [facility] Eos % 2.4 % [facility] Eosinophils Abs 0.2 0.0 - 0.4 x10(3)/[facility] Basophil % 0.5 % [facility] Baso Absolute 0.0 0.0 - [...] [facility] [place] [address] * (ABNORMAL) Hemogram (11/13/2020 3:58 AM EST) White Blood Cell 9.4 4.0 - 9.5 x10(3)/ L [facility] Red Blood Cell 3.41(L) 4.58 - 5.54 x10(6)/ L [facility] Platelet 330 145 - 357 x10(3)/[facility] RDW Standard Deviation 41.9 36.0 - 45.0 [facility] RDW coefficient of variation 12.3 11.4 - 13.8 % [facility] Mean Platelet Volume 10.5 7.6 - 12.9 fL [facility] NRBC% auto 0.0 % [facility] NRBC Absolute 0.000 0.000 - 0.000 x10(3)/[facility] Blood specimen (specimen) 11/13/2020 3:58 AM EST 11/13/2020 4:12 AM EST Narrative Resulting Agency Comment Spec In Lab Norberto Gonzalez MD HEMATOLOGY ORDERABLE S [facility] [place] [address] * Phosphorus (11/13/2020 3:58 AM EST) Phosphorus 3.5 2.5 - 4.5 mg/dL [facility] Blood specimen (specimen) 11/13/2020 3:58 AM EST 11/13/2020 4:12 AM EST Narrative Resulting Agency Comment Spec In Lab Radha Bolden MD CHEMISTRY ORDERABLES Performing Organization Address City/[facility]/ZIP Co de Phone Number [facility] [place] [address] * Magnesium (11/13/2020 3:58 AM EST) Pathologist [facility] [place] Magnesium 0.76 0.69 - 1.07 mmol/L [facility] Blood specimen (specimen) 11/13/2020 3:58 AM EST 11/13/2020 4:12 AM EST Narrative Resulting Agency Comment Spec In Lab Radha Bolden MD CHEMISTRY ORDERABLES Performing Organization Address [facility] Co de Phone Number [facility] [place] [address] * (ABNORMAL) Basic Metabolic Panel (non-fasting) (11/13/2020 3:58 AM EST) [facility] Glucose 109 65 - 199 mg/dL WH[facility] [...] [facility] [place] [address] * (ABNORMAL) Differential, Automated (11/12/2020 2:40 AM EST) Neutrophil % 66.6 % [facility] Neutrophil Absolute 5.38 1.70 - 6.10 x10(3)/mc L [facility] Lymph % 21.8 % [facility] Lymphocytes Abs 1.8 0.9 - 3.2 x10(3)/mc L [facility] Monocyte % 6.9 % [facility] Monocyte Abs 0.6 0.3 - 0.9 x10(3)/mc L [facility] Eos % 3.2 % [facility] Eosinophils Abs 0.3 0.0 - 0.4 x10(3)/mc L [facility] Basophil % 0.6 % [facility] Baso Absolute 0.0 0.0 - [...] [facility] [place] [address] * (ABNORMAL) Hemogram (11/12/2020 2:40 AM EST) White Blood Cell 8.1 4.0 - 9.5 x10(3)/mc L [facility] Red Blood Cell 3.39(L) 4.58 - 5.54 x10(6)/mc L [facility] [...] RDW Standard Deviation 42.4 36.0 - 45.0 [facility] RDW coefficient of variation 12.4 11.4 - 13.8 % [facility] Mean Platelet Volume 10.5 7.6 - 12.9 fL [facility] NRBC% auto 0.0 % [facility] NRBC Absolute 0.000 0.000 - 0.000 x10(3)/mc L [facility] Blood specimen (specimen) 11/12/2020 2:40 AM EST 11/12/2020 2:47 AM EST Narrative Resulting Agency Comment Spec In Lab Norberto Gonzalez MD HEMATOLOGY ORDERABLE S Performing Organization Address City/[facility]/ZIP Co de Phone Number [facility] [place] [address] * Phosphorus (11/12/2020 2:40 AM EST) Phosphorus 4.0 2.5 - 4.5 mg/dL [facility] Blood specimen (specimen) 11/12/2020 2:40 AM EST 11/12/2020 2:47 AM EST Narrative Resulting Agency Comment Spec In Lab Radha Bolden MD CHEMISTRY ORDERABLES Performing Organization Address [facility] Co de Phone Number [facility] [place] [address] * Magnesium (11/12/2020 2:40 AM EST) Magnesium 0.81 0.69 - 1.07 mmol/L [facility] Blood specimen (specimen) 11/12/2020 2:40 AM EST 11/12/2020 2:47 AM EST Narrative Resulting Agency Comment Spec In Lab Radha Bolden MD CHEMISTRY ORDERABLES Performing Organization Address [facility] Co de Phone Number [facility] [place] [address] * (ABNORMAL) Basic Metabolic Panel (non-fasting) (11/12/2020 [...] [facility] [place] [address] * (ABNORMAL) Differential, Automated (11/11/2020 4:15 AM EST) Neutrophil % 68.2 % [facility] Neutrophil Absolute 5.80 1.70 - 6.10 x10(3)/[facility] Lymph % 18.1 % [facility] Lymphocytes Abs 1.5 0.9 - 3.2 x10(3)/[facility] Monocyte % 8.4 % [facility] Monocyte Abs 0.7 0.3 - 0.9 x10(3)/[facility] Eos % 3.8 % [facility] Eosinophils Abs 0.3 0.0 - 0.4 x10(3)/[facility] Basophil % 0.6 % [facility] Baso Absolute 0.0 0.0 - 0.1 x10(3)/[facility] Immature Gran % 0.90 % [facility] Comment: Immature granulocytes(IG's)percentage and absolute count will include metamyelocytes, myelocytes, and promyelocytes. Blood smears from CBCs yielding IG's will be scanned manually for concordance. If this scan disagrees with the automated IG or if promyelocytes are noted, a manual differential will be performed. Immature Gran Absolute 0.08(H) 0.00 - 0.04 x10(3)/[facility] Blood specimen (specimen) 11/11/2020 4:15 AM EST 11/11/2020 4:37 AM EST Narrative Resulting Agency Comment Spec In Lab Norberto Gonzalez MD HEMATOLOGY ORDERABLE S [facility] [place] [address] * (ABNORMAL) Hemogram (11/11/2020 4:15 AM EST) White Blood Cell 8.5 4.0 - 9.5 x10(3)/[facility] Red Blood Cell 3.34(L) 4.58 - [...] RDW Standard Deviation 42.5 36.0 - 45.0 [facility] RDW coefficient of variation 12.4 11.4 - 13.8 % [facility] Mean Platelet Volume 10.3 7.6 - 12.9 [facility] NRBC% auto 0.0 % [facility] NRBC Absolute 0.000 0.000 - 0.000 x10(3)/mc L [facility] Blood specimen (specimen) 11/11/2020 4:15 AM EST 11/11/2020 4:37 AM EST Narrative Resulting Agency Comment Spec In Lab Norberto Gonzalez MD HEMATOLOGY ORDERABLE S Performing Organization Address City/[facility]/ZIP Co de Phone Number [facility] [place] [address] * Phosphorus (11/11/2020 4:15 AM EST) Phosphorus 4.4 2.5 - 4.5 mg/dL [facility] Blood specimen (specimen) 11/11/2020 4:15 AM EST 11/11/2020 4:37 AM EST Narrative Resulting Agency Comment Spec In Lab Radha Bolden MD CHEMISTRY ORDERABLES Performing Organization Address City/[facility]/ZIP Co de Phone Number [facility] [place] [address] * Magnesium (11/11/2020 4:15 AM EST) Magnesium 0.82 0.69 - 1.07 mmol/L [facility] Blood specimen (specimen) 11/11/2020 4:15 AM EST 11/11/2020 4:37 AM EST Narrative Resulting Agency Comment Spec In Lab Radha Bolden MD CHEMISTRY ORDERABLES [facility] [place] [address] * (ABNORMAL) Basic Metabolic Panel (non-fasting) (11/11/2020 4:15 AM EST) Glucose 96 65 - 199 mg/dL WHITE [...] [facility] [place] [address] * (ABNORMAL) Differential, Automated (11/10/2020 1:00 AM EST) Neutrophil % 65.3 % [facility] Neutrophil Absolute 4.43 1.70 - 6.10 x10(3)/mc L [facility] Lymph % 17.6 % [facility] Lymphocytes Abs 1.2 0.9 - 3.2 x10(3)/mc L [facility] Monocyte % 10.2 % [facility] Monocyte Abs 0.7 0.3 - 0.9 x10(3)/mc L [facility] Eos % 5.0 % [facility] Eosinophils Abs 0.3 0.0 - 0.4 x10(3)/mc L [facility] Basophil % 0.6 % [facility] Baso Absolute 0.0 0.0 - 0.1 x10(3)/mc L [facility] Immature Gran % 1.30 % [facility] Comment: Immature granulocytes(IG's)percentage and absolute count will include metamyelocytes, myelocytes, and promyelocytes. Blood smears from CBCs yielding IG's will be scanned manually for concordance. If this scan disagrees with the automated IG or if promyelocytes are noted, a manual differential will be performed. Immature Gran Absolute 0.09(H) 0.00 - 0.04 x10(3)/ L [facility] Blood specimen (specimen) 11/10/2020 1:00 AM EST 11/10/2020 1:32 AM EST Narrative Resulting Agency Comment Spec In Lab Norberto Gonzalez MD HEMATOLOGY ORDERABLE S [facility] [place] [address] * (ABNORMAL) Hemogram (11/10/2020 1:00 AM EST) White Blood Cell 6.8 4.0 - 9.5 x10(3)/ L [facility] Red Blood Cell 3.38(L) 4.58 - 5.54 x10(6)/[facility] Hemoglobin 10.2(L) 13.7 - 16.5 gm/dL [...] CENTER LABORATORY Platelet 358(H) 145 - 357 x10(3)/ L [facility] RDW Standard Deviation 42.3 36.0 - 45.0 [facility] RDW coefficient of variation 12.3 11.4 - 13.8 % [facility] Mean Platelet Volume 10.6 7.6 - 12.9 [facility] NRBC% auto 0.0 % [facility] NRBC Absolute 0.000 0.000 - 0.000 x10(3)/ L [facility] Blood specimen (specimen) 11/10/2020 1:00 AM EST 11/10/2020 1:32 AM EST Narrative Resulting Agency Comment Spec In Lab Norberto Gonzalez MD HEMATOLOGY ORDERABLE S Performing Organization Address [facility] Co de Phone Number [facility] [place] [address] * Phosphorus (11/10/2020 1:00 AM EST) Phosphorus 3.2 2.5 - 4.5 mg/dL [facility] Blood specimen (specimen) 11/10/2020 1:00 AM EST 11/10/2020 1:32 AM EST Narrative Resulting Agency Comment Spec In Lab Radha Bolden MD CHEMISTRY ORDERABLES Performing Organization Address [facility] Phone Number [facility] [place] [address] * Magnesium (11/10/2020 1:00 AM EST) Magnesium 0.87 0.69 - 1.07 mmol/L [facility] Blood specimen (specimen) 11/10/2020 1:00 AM EST 11/10/2020 1:32 AM EST Narrative Resulting Agency Comment Spec In Lab Radha Bolden MD CHEMISTRY ORDERABLES Performing Organization Address [facility] Co de Phone Number [facility] [place] [address] * (ABNORMAL) Basic Metabolic Panel (non-fasting) (11/10/2020 [...] [facility] [place] [address] * XR Cervical Spine 2 or 3 [...] ? Electronically signed by: Crys Joaquin MD, [facility] ([phone]), at 11/09/2020 3:29 PM Narrative 11/09/2020 3:29 PM EST EXAMINATION: XR [...] contact the number below. Electronically signed by: Crys Joaquin MD, [facility]([phone]), at 11/09/2020 3:29 PM Radha Bolden MD IMG DX ORDERABLES * (ABNORMAL) Differential, Automated (11/09/2020 2:25 AM EST) Neutrophil % 66.7 % [facility] Neutrophil Absolute 4.46 1.70 - 6.10 x10(3)/mc L [facility] Lymph % 15.2 % [facility] Lymphocytes Abs 1.0 0.9 - 3.2 x10(3)/ L [facility] Monocyte % 11.8 % [facility] Monocyte Abs 0.8 0.3 - 0.9 x10(3)/mc L [facility] Eos % 4.8 % [facility] Eosinophils Abs 0.3 0.0 - 0.4 x10(3)/ L [facility] Basophil % 0.6 % [facility] Baso Absolute 0.0 0.0 - [...] [facility] [place] [address] * (ABNORMAL) Hemogram (11/09/2020 2:25 AM EST) [...] Mean Cell Volume 93.9(H) 82.9 - 93.1 [facility] Mean Cell Hemoglobin 30.0 27.5 - 32.1 pg [facility] Mean Cell Hemoglobin Concentration 31.9(L) 32.0 - 35.7 gm/dL [facility] Platelet 322 145 - 357 x10(3)/mc L [facility] RDW Standard Deviation 42.5 36.0 - 45.0 [facility] RDW coefficient of variation 12.4 11.4 - 13.8 % [facility] Mean Platelet Volume 10.5 7.6 - 12.9 [facility] NRBC% auto 0.0 % [facility] NRBC Absolute 0.000 0.000 - 0.000 x10(3)/[facility] Blood specimen (specimen) 11/09/2020 2:25 AM EST 11/09/2020 2:45 AM EST Narrative Resulting Agency Comment Spec In Lab Norberto Gonzalze MD HEMATOLOGY ORDERABLE S [facility] [place] [address] * Phosphorus (11/09/2020 2:25 AM EST) Phosphorus 4.0 2.5 - 4.5 mg/dL [facility] Blood specimen (specimen) 11/09/2020 2:25 AM EST 11/09/2020 2:45 AM EST Narrative Resulting Agency Comment Spec In Lab Radha Bolden MD CHEMISTRY ORDERABLES Performing Organization Address [facility] Co de Phone Number [facility] [place] [address] * Magnesium (11/09/2020 2:25 AM EST) Pathologist [facility] [place] Magnesium 0.93 0.69 - 1.07 mmol/L [facility] Blood specimen (specimen) 11/09/2020 2:25 AM EST 11/09/2020 2:45 AM EST Narrative Resulting Agency Comment Spec In Lab Radha Bolden MD CHEMISTRY ORDERABLES Performing Organization Address [facility] de Phone Number [facility] [place] [address] * (ABNORMAL) Basic Metabolic Panel (non-fasting) (11/09/2020 2:25 AM EST) Pathologist [facility] [place] Glucose 121 65 - 199 mg/dL WHITE [...] [facility] [place] [address] * CT Abdomen & Pelvis w Contrast (11/08/2020 10:42 AM EST) Anatomical Region Laterality Modality Abdomen, Pelvis Computed Tomogra phy Impressions 11/08/2020 11:04 AM EST 1. ??No signs of small bowel obstruction with the small bowel decompressed. There is a mild to moderate distention of the colon with gas, fluid, and stool which could represent ileus/early Cyrus. 2. ??There is a trace amount of [...] ? Electronically signed by: Blayne Ferrara MD, [facility] ([phone]), at 11/08/2020 11:04 AM Narrative 11/08/2020 11:04 [...] gas, fluid, and stoolwhich could represent ileus/early Nikole. 2. There is [...] below. Electronically signed by: Blayne Ferrara MD, [facility]([phone]), at 11/08/2020 11:04 AM Radha Bolden MD IMG CT ORDERABLES * (ABNORMAL) Differential, Automated (11/08/2020 1:35 AM EST) Neutrophil % 75.7 % [facility] Neutrophil Absolute 6.99(H) 1.70 - 6.10 x10(3)/mc L [facility] Lymph % 11.9 % [facility] Lymphocytes Abs 1.1 0.9 - 3.2 x10(3)/mc L [facility] Monocyte % 9.3 % [facility] Monocyte Abs 0.9 0.3 - 0.9 x10(3)/mc L [facility] Eos % 2.2 % [facility] Eosinophils Abs 0.2 0.0 - 0.4 x10(3)/mc L [facility] Basophil % 0.3 % [facility] Baso Absolute 0.0 0.0 - [...] MD HEMATOLOGY ORDERABLE S Performing Organization Address City/State/[facility] Co de Phone Number [facility] [place] [address] * (ABNORMAL) Hemogram (11/08/2020 1:35 AM EST) White Blood Cell 9.2 4.0 - 9.5 x10(3)/ L [facility] Red Blood Cell 3.24(L) 4.58 - 5.54 x10(6)/[facility] Hemoglobin 9.9(L) 13.7 - 16.5 gm/dL [facility] Hematocrit 29.8(L) 40.5 - 48.5 % [facility] Mean Cell Volume 92.0 82.9 - 93.1 [facility] Mean Cell Hemoglobin 30.6 27.5 - 32.1 pg [facility] Mean Cell Hemoglobin Concentration 33.2 32.0 - 35.7 gm/dL [facility] Platelet 310 145 - 357 x10(3)/[facility] RDW Standard Deviation 41.0 36.0 - 45.0 [facility] RDW coefficient of variation 12.1 11.4 - 13.8 % [facility] Mean Platelet Volume 10.6 7.6 - 12.9 [facility] NRBC% auto 0.0 % [facility] NRBC Absolute 0.000 0.000 - 0.000 x10(3)/ L [facility] Blood specimen (specimen) 11/08/2020 1:35 AM EST 11/08/2020 1:56 AM EST Narrative Resulting Agency Comment Spec In Lab Norberto Gonzalez MD HEMATOLOGY ORDERABLE S Performing Organization Address [facility] Co de Phone Number [facility] [place] [address] * (ABNORMAL) Phosphorus (11/08/2020 1:35 AM EST) Phosphorus 4.8(H) 2.5 - 4.5 mg/dL [facility] Blood specimen (specimen) 11/08/2020 1:35 AM EST 11/08/2020 1:55 AM EST Narrative Resulting Agency Comment Spec In Lab Radha Bolden MD CHEMISTRY ORDERABLES Performing Organization Address [facility] Co de Phone Number [facility] [place] [address] * Magnesium (11/08/2020 1:35 AM EST) Magnesium 0.94 0.69 - 1.07 mmol/L [facility] Blood specimen (specimen) 11/08/2020 1:35 AM EST 11/08/2020 1:55 AM EST Narrative Resulting Agency Comment Spec In Lab Radha Bolden MD CHEMISTRY ORDERABLES Performing Organization Address [facility] Co de Phone Number [facility] [place] [address] * (ABNORMAL) Basic Metabolic Panel (non-fasting) (11/08/2020 [...] [facility] [place] [address] * XR Abdomen 1 view (Generic) (11/07/2020 11:31 AM EST) Anatomical Region Laterality Modality Abdomen N/A Digital Radiogra phy Impressions 11/07/2020 11:41 AM EST Bowel gas pattern is within normal limits. No evidence of obstruction. Thank you for letting us participate in the care of this patient. For questions regarding this report, please contact the number below. ? Electronically signed by: Usha Liriano MD, [facility] ([phone]), at 11/07/2020 11:41 AM Narrative 11/07/2020 11:41 AM EST EXAMINATION: XR [...] contact the number below. Electronically signed by: Usha Liriano MD, [facility]([phone]), at 11/07/2020 11:41 AM Radha Bolden MD IMG DX ORDERABLES * EKG 12 Lead (11/06/2020 1:04 PM EST) Ventricular rate 64 BPM MUSE SYSTEM Atrial Rate 64 BPM MUSE SYSTEM P-R Interval 138 ms MUSE SYSTEM QRS Duration 98 ms MUSE SYSTEM Q-T Interval 398 ms MUSE SYSTEM QTC Calculated (Bezet) 410 ms MUSE SYSTEM Calculated P [place] 71 degrees MUSE SYSTEM Calculated R [place] 64 degrees MUSE SYSTEM Calculated T [place] 19 degrees MUSE SYSTEM INTERPRETATION Normal sinus rhythm Normal ECG No previous ECGs available Confirmed by Monica Staley ([id number]) on 11/06/2020 1:52:38 PM MUSE SYSTEM 11/06/2020 1:04 PM EST 11/06/2020 1:52 PM EST Radha Bolden MD ECG ORDERABLES MUSE SYSTEM * (ABNORMAL) Differential, Automated (11/06/2020 4:40 AM EST) Neutrophil % 77.4 % [facility] Neutrophil Absolute 8.71(H) 1.70 - 6.10 x10(3)/mc L [facility] Lymph % 11.8 % [facility] Lymphocytes Abs 1.3 0.9 - 3.2 x10(3)/mc L [facility] Monocyte % 8.8 % [facility] Monocyte Abs 1.0(H) 0.3 - 0.9 x10(3)/mc L [facility] Eos % 1.3 % [facility] Eosinophils Abs 0.2 0.0 - 0.4 x10(3)/mc L [facility] Basophil % 0.3 % [facility] Baso Absolute 0.0 0.0 - 0.1 x10(3)/mc L [facility] Immature Gran % 0.40 % WHITE [...] Absolute 0.05(H) 0.00 - 0.04 x10(3)/mc L [facility] Blood specimen (specimen) 11/06/2020 4:40 AM EST 11/06/2020 4:45 AM EST Narrative Resulting Agency Comment Spec In Lab Norberto Gonzalez MD HEMATOLOGY ORDERABLE S [facility] [place] [address] * (ABNORMAL) Hemogram (11/06/2020 4:40 AM EST) White Blood Cell 11.3(H) 4.0 - 9.5 x10(3)/mc L [facility] Red Blood Cell 3.25(L) 4.58 - 5.54 x10(6)/mc L [facility] Hemoglobin 10.0(L) 13.7 - 16.5 gm/dL [...] RDW Standard Deviation 41.5 36.0 - 45.0 fL [facility] RDW coefficient of variation 12.1 11.4 - 13.8 % [facility] Mean Platelet Volume 10.5 7.6 - 12.9 fL [facility] [facility] NRBC% auto 0.0 % [facility] NRBC Absolute 0.000 0.000 - 0.000 x10(3)/mc L [facility] Blood specimen (specimen) 11/06/2020 4:40 AM EST 11/06/2020 4:45 AM EST Narrative Resulting Agency Comment Spec In Lab Norberto Gonzalez MD HEMATOLOGY ORDERABLE S Performing Organization Address [facility]/ZIP Co de Phone Number [facility] [place] [address] * Phosphorus (11/06/2020 4:40 AM EST) Phosphorus 3.9 2.5 - 4.5 mg/dL [facility] Blood specimen (specimen) 11/06/2020 4:40 AM EST 11/06/2020 4:45 AM EST Narrative Resulting Agency Comment Spec In Lab Radha Bolden MD CHEMISTRY ORDERABLES Performing Organization Address [facility] Co de Phone Number [facility] [place] [address] * Magnesium (11/06/2020 4:40 AM EST) Magnesium 0.86 0.69 - 1.07 mmol/L [facility] Blood specimen (specimen) 11/06/2020 4:40 AM EST 11/06/2020 4:45 AM EST Narrative Resulting Agency Comment Spec In Lab Radha Bolden MD CHEMISTRY ORDERABLES Performing Organization Address [facility] Co de Phone Number [facility] [place] [address] * (ABNORMAL) Basic Metabolic Panel (non-fasting) (11/06/2020 [...] [facility] [place] [address] * XR Chest One View (11/05/2020 11:54 [...] the number below. ? Electronically signed by: Lili Burgos MD, [facility] ([phone]), at 11/05/2020 11:58 AM Narrative 11/05/2020 11:58 AM EST EXAMINATION: XR [...] contact the number below. Electronically signed by: Lili Burgos MD, [facility]([phone]), at 11/05/2020 11:58 AM Robyn J Olivia INTERNAL COMBUSTION ENGINE INSPECTOR IMG DX ORDERABLES * (ABNORMAL) Differential, Automated (11/05/2020 4:12 AM EST) Neutrophil % 72.8 % [facility] Neutrophil Absolute 6.97(H) 1.70 - 6.10 x10(3)/[facility] Lymph % 14.7 % [facility] Lymphocytes Abs 1.4 0.9 - 3.2 x10(3)/[facility] Monocyte % 9.8 % [facility] Monocyte Abs 0.9 0.3 - 0.9 x10(3)/[facility] Eos % 1.9 % [facility] Eosinophils Abs 0.2 0.0 - 0.4 x10(3)/[facility] Basophil % 0.2 % [facility] Baso Absolute 0.0 0.0 - 0.1 x10(3)/[facility] Immature Gran % 0.60 % WHITE [...] Absolute 0.06(H) 0.00 - 0.04 x10(3)/ L [facility] Blood specimen (specimen) 11/05/2020 4:12 AM EST 11/05/2020 4:18 AM EST Narrative Resulting Agency Comment Spec In Lab Noble P Rodriguez MD HEMATOLOGY ORDERABLE S [facility] [place] [address] * (ABNORMAL) Hemogram (11/05/2020 4:12 AM EST) [...] RDW Standard Deviation 40.6 36.0 - 45.0 [facility] RDW coefficient of variation 12.4 11.4 - 13.8 % [facility] Mean Platelet Volume 10.5 7.6 - 12.9 fL [facility] NRBC% auto 0.0 % [facility] NRBC Absolute 0.000 0.000 - 0.000 x10(3)/mc L [facility] Blood specimen (specimen) 11/05/2020 4:12 AM EST 11/05/2020 4:18 AM EST Narrative Resulting Agency Comment Spec In Lab Noble Rodriguez MD HEMATOLOGY ORDERABLE S [facility] [place] [address] * Phosphorus (11/05/2020 4:12 AM EST) Phosphorus 3.1 2.5 - 4.5 mg/dL [facility] Blood specimen (specimen) 11/05/2020 4:12 AM EST 11/05/2020 4:18 AM EST Narrative Resulting Agency Comment Spec In Lab Radha Bolden MD CHEMISTRY ORDERABLES Performing Organization Address [facility] Co de Phone Number [facility] [place] [address] * Magnesium (11/05/2020 4:12 AM EST) Pathologist [facility] [place] Magnesium 0.76 0.69 - 1.07 mmol/L [facility] Blood specimen (specimen) 11/05/2020 4:12 AM EST 11/05/2020 4:18 AM EST Narrative Resulting Agency Comment Spec In Lab Radha Bolden MD CHEMISTRY ORDERABLES Performing Organization Address [facility] Co de Phone Number [facility] [place] [address] * (ABNORMAL) Basic Metabolic Panel (non-fasting) (11/05/2020 4:12 AM EST) Pathologist [facility] [place] Glucose 102 65 - 199 mg/dL WH[facility] [...] [facility] [place] [address] * SCAN DOC: IMPLANTABLE DEVICES (11/05/2020 12:00 AM EST) Narrative 11/05/2020 12:00 AM EST Ordered by an unspecified provider. Scanning Provider MEDIA MGR SCAN EXT O RDR/RSLT * Differential, Automated (11/04/2020 2:30 AM EST) Neutrophil % 72.7 % [facility] Neutrophil Absolute 5.18 1.70 - 6.10 x10(3)/[facility] Lymph % 13.0 % [facility] Lymphocytes Abs 0.9 0.9 - 3.2 x10(3)/[facility] Monocyte % 10.2 % [facility] Monocyte Abs 0.7 0.3 - 0.9 x10(3)/[facility] Eos % 3.4 % [facility] Eosinophils Abs 0.2 0.0 - 0.4 x10(3)/[facility] Basophil % 0.3 % [facility] Baso Absolute 0.0 0.0 - 0.1 x10(3)/[facility] Immature Gran % 0.40 % [facility] Comment: Immature granulocytes(IG's)percentage and absolute count will include metamyelocytes, myelocytes, and promyelocytes. Blood smears from CBCs yielding IG's will be scanned manually for concordance. If this scan disagrees with the automated IG or if promyelocytes are noted, a manual differential will be performed. Immature Gran Absolute 0.03 0.00 - 0.04 x10(3)/[facility] Blood specimen (specimen) 11/04/2020 2:30 AM EST 11/04/2020 2:37 AM EST Narrative Resulting Agency Comment Spec In Lab Noble Rodriguez MD HEMATOLOGY ORDERABLE S Performing Organization Address City/State/[facility] Co de Phone Number [facility] [place] [address] * (ABNORMAL) Hemogram (11/04/2020 2:30 AM EST) White Blood Cell 7.1 4.0 - 9.5 x10(3)/mc L [facility] Red Blood Cell 3.37(L) 4.58 - 5.54 x10(6)/mc L [facility] [...] [facility] Platelet 234 145 - 357 x10(3)/mc L [facility] RDW Standard Deviation 40.3 36.0 - 45.0 fL [facility] RDW coefficient of variation 12.1 11.4 - 13.8 % [facility] Mean Platelet Volume 10.6 7.6 - 12.9 fL [facility] NRBC% auto 0.0 % [facility] NRBC Absolute 0.000 0.000 - 0.000 x10(3)/mc L [facility] Blood specimen (specimen) 11/04/2020 2:30 AM EST 11/04/2020 2:37 AM EST Narrative Resulting Agency Comment Spec In Lab Noble Rodriguez MD HEMATOLOGY ORDERABLE S Performing Organization Address City/[facility]/ZIP Co de Phone Number [facility] [place] [address] * Phosphorus (11/04/2020 2:30 AM EST) Phosphorus 2.7 2.5 - 4.5 mg/dL [facility] Blood specimen (specimen) 11/04/2020 2:30 AM EST 11/04/2020 2:37 AM EST Narrative Resulting Agency Comment Spec In Lab Radha Bolden MD CHEMISTRY ORDERABLES Performing Organization Address City/[facility] Co de Phone Number [facility] [place] [address] * Magnesium (11/04/2020 2:30 AM EST) Magnesium 0.78 0.69 - 1.07 mmol/L [facility] Blood specimen (specimen) 11/04/2020 2:30 AM EST 11/04/2020 2:37 AM EST Narrative Resulting Agency Comment Spec In Lab Radha Bolden MD CHEMISTRY ORDERABLES [facility] [place] [address] * (ABNORMAL) Basic Metabolic Panel (non-fasting) (11/04/2020 2:30 AM EST) Glucose 137 65 - 199 [...] Bolden MD CHEMISTRY ORDERABLES Performing Organization Address [facility] de Phone Number [facility] [place] [address] * C. Difficile Screen (11/04/2020 12:42 AM EST) C Diff Interp Negative Negative [facility] Comment: Ag/Tox Neg C. diff?? Negative [...] - GENER AL ORDERABLES Performing Organization Address [facility] de Phone Number [facility] [place] [address] * XR Abdomen 1 view (Generic) (11/03/2020 12:37 PM EST) Anatomical Region Laterality Modality Abdomen N/A Digital Radiogra phy Impressions 11/03/2020 1:08 PM EST Diffuse gaseous distention of the stomach, small and large bowel. Thank you for letting us participate in the care of this patient. For questions regarding this report, please contact the number below. ? Electronically signed by: Rohit Ross MD, [facility] ([phone]), at 11/03/2020 1:08 PM Narrative 11/03/2020 1:08 PM EST EXAMINATION: XR [...] contact the number below. Electronically signed by: Rohit Ross MD, [facility]([phone]), at 11/03/2020 1:08 PM Robyn Baker INTERNAL COMBUSTION ENGINE INSPECTOR IMG DX ORDERABLES * Place PICC Line: Contact Vascular Access Page [phone] Extremity to exclude: No restrictions; Is PICC [...] to the planned procedure. Hand Hygiene: The telemarketer did perform hand hygiene prior to line insertion. Catheter type: PICC Lot number: [id number] Procedure Technique: Skin was prepped with chlorhexidine. [...] Procedure Comments: ANGELY ONEIL RN 11/03/2020 Robyn Baekr APRN PROCEDURE/MINOR FINCH RGICAL ORDERABLES * XR [...] ? Electronically signed by: Nallely Donato MD, [facility] ([phone]), at 11/03/2020 12:18 PM Narrative 11/03/2020 12:18 [...] below. Electronically signed by: Nallely Donato MD, [facility]([phone]), at 11/03/2020 12:18 PM Robyn Baker INTERNAL COMBUSTION ENGINE INSPECTOR IMG FLUORO ORDERAB LES * Differential, Automated (11/03/2020 3:15 AM EST) [facility] Neutrophil % 70.1 % [facility] Neutrophil Absolute 4.87 1.70 - 6.10 x10(3)/[facility] Lymph % 14.6 % [facility] Lymphocytes Abs 1.0 0.9 - 3.2 x10(3)/[facility] Monocyte % 10.5 % [facility] Monocyte Abs 0.7 0.3 - 0.9 x10(3)/[facility] Eos % 3.9 % [facility] Eosinophils Abs 0.3 0.0 - 0.4 x10(3)/[facility] Basophil % 0.3 % [facility] Baso Absolute 0.0 0.0 - 0.1 x10(3)/[facility] Immature Gran % 0.60 % [facility] Comment: Immature granulocytes(IG's)percentage and absolute count will include metamyelocytes, myelocytes, and promyelocytes. Blood smears from CBCs yielding IG's will be scanned manually for concordance. If this scan disagrees with the automated IG or if promyelocytes are noted, a manual differential will be performed. Immature Gran Absolute 0.04 0.00 - 0.04 x10(3)/[facility] Blood specimen (specimen) 11/03/2020 3:15 AM EST 11/03/2020 3:20 AM EST Narrative Resulting Agency Comment Spec In Lab Noble Rodriguez MD HEMATOLOGY ORDERABLE S [facility] [place] [address] * (ABNORMAL) Hemogram (11/03/2020 3:15 AM EST) [facility] White Blood Cell 6.9 4.0 - 9.5 x10(3)/ L [facility] Platelet 205 145 - 357 x10(3)/[facility] RDW Standard Deviation 39.2 36.0 - 45.0 fL [facility] RDW coefficient of variation 12.0 11.4 - 13.8 % [facility] Mean Platelet Volume 10.6 7.6 - 12.9 fL [facility] NRBC% auto 0.0 % [facility] NRBC Absolute 0.000 0.000 - 0.000 x10(3)/[facility] Blood specimen (specimen) 11/03/2020 3:15 AM EST 11/03/2020 3:20 AM EST Narrative Resulting Agency Comment Spec In Lab Noble Rodriguez MD HEMATOLOGY ORDERABLE S [facility] [place] [address] * Phosphorus (11/03/2020 3:15 AM EST) Phosphorus 3.1 2.5 - 4.5 mg/dL [facility] Blood specimen (specimen) 11/03/2020 3:15 AM EST 11/03/2020 3:20 AM EST Narrative Resulting Agency Comment Spec In Lab Radha Bolden MD CHEMISTRY ORDERABLES Performing Organization Address City/[facility]/ZIP Co de Phone Number [facility] [place] [address] * Magnesium (11/03/2020 3:15 AM EST) Pathologist [facility] [place] Magnesium 0.82 0.69 - 1.07 mmol/L [facility] Blood specimen (specimen) 11/03/2020 3:15 AM EST 11/03/2020 3:20 AM EST Narrative Resulting Agency Comment Spec In Lab Radha Bolden MD CHEMISTRY ORDERABLES Performing Organization Address [facility] Co de Phone Number [facility] [place] [address] * (ABNORMAL) Basic Metabolic Panel (non-fasting) (11/03/2020 3:15 AM EST) [facility] Glucose 85 65 - 199 mg/dL WH[facility] [...] [facility] [place] [address] * XR Chest One View (11/02/2020 6:10 PM EST) Anatomical Region Laterality Modality Chest N/A Digital Radiogra phy Impressions 11/02/2020 6:40 PM EST No acute cardiopulmonary abnormality. Thank you for letting us participate in the care of this patient. For questions regarding this report, please contact the number below. ? Electronically signed by: Caleb Branch MD, [facility] ([phone]), at 11/02/2020 6:40 PM Narrative 11/02/2020 6:40 [...] contact the number below. Electronically signed by: Caleb Branch MD, [facility]([phone]), at 11/02/2020 6:40 PM Gaurav Shoemaker MD IMG DX ORDERABLES * (ABNORMAL) Differential, Automated (11/02/2020 3:52 AM EST) Neutrophil % 63.2 % [facility] Neutrophil Absolute 4.39 1.70 - 6.10 x10(3)/mc L [facility] Lymph % 19.4 % [facility] Lymphocytes Abs 1.4 0.9 - 3.2 x10(3)/mc L [facility] Monocyte % 13.9 % [facility] Monocyte Abs 1.0(H) 0.3 - 0.9 x10(3)/mc L [facility] Eos % 2.7 % [facility] Eosinophils Abs 0.2 0.0 - 0.4 x10(3)/mc L [facility] Basophil % 0.4 % [facility] Baso Absolute 0.0 0.0 - 0.1 x10(3)/ L [facility] Immature Gran % 0.40 % [facility] Comment: Immature granulocytes(IG's)percentage and absolute count will include metamyelocytes, myelocytes, and promyelocytes. Blood smears from CBCs yielding IG's will be scanned manually for concordance. If this scan disagrees with the automated IG or if promyelocytes are noted, a manual differential will be performed. Immature Gran Absolute 0.03 0.00 - 0.04 x10(3)/[facility] Blood specimen (specimen) 11/02/2020 3:52 AM EST 11/02/2020 4:01 AM EST Narrative Resulting Agency Comment Spec In Lab Noble Rodriguez MD HEMATOLOGY ORDERABLE S [facility] [place] [address] * (ABNORMAL) Hemogram (11/02/2020 3:52 AM EST) White Blood Cell 7.0 4.0 - 9.5 x10(3)/[facility] Red Blood Cell 3.39(L) 4.58 - [...] CENTER LABORATORY Platelet 188 145 - 357 x10(3)/ L [facility] RDW Standard Deviation 39.9 36.0 - 45.0 fL [facility] RDW coefficient of variation 12.2 11.4 - 13.8 % [facility] Mean Platelet Volume 10.6 7.6 - 12.9 fL [facility] NRBC% auto 0.0 % [facility] NRBC Absolute 0.000 0.000 - 0.000 x10(3)/mc L [facility] Blood specimen (specimen) 11/02/2020 3:52 AM EST 11/02/2020 4:01 AM EST Narrative Resulting Agency Comment Spec In Lab Noble Rodriguez MD HEMATOLOGY ORDERABLE S Performing Organization Address City/[facility]/ZIP Co de Phone Number [facility] [place] [address] * Phosphorus (11/02/2020 3:52 AM EST) Phosphorus 4.0 2.5 - 4.5 mg/dL [facility] Blood specimen (specimen) 11/02/2020 3:52 AM EST 11/02/2020 4:01 AM EST Narrative Resulting Agency Comment Spec In Lab Radha Bolden MD CHEMISTRY ORDERABLES Performing Organization Address [facility] Co de Phone Number [facility] [place] [address] * Magnesium (11/02/2020 3:52 AM EST) Magnesium 0.82 0.69 - 1.07 mmol/L [facility] Blood specimen (specimen) 11/02/2020 3:52 AM EST 11/02/2020 4:01 AM EST Narrative Resulting Agency Comment Spec In Lab Radha Bolden MD CHEMISTRY ORDERABLES Performing Organization Address [facility] Co de Phone Number [facility] [place] [address] * (ABNORMAL) Basic Metabolic Panel (non-fasting) (11/02/2020 [...] [facility] [place] [address] * XR Abdomen 1 view (Generic) (11/01/2020 3:59 PM EST) Anatomical Region Laterality Modality Abdomen N/A Digital Radiogra phy Impressions 11/01/2020 4:03 PM EST Dobbhoff catheter, as above. Thank you for letting us participate in the care of this patient. For questions regarding this report, please contact the number below. ? Electronically signed by: Killian Bob MD, [facility] ([phone]), at 11/01/2020 4:03 PM Narrative 11/01/2020 4:03 PM EST EXAMINATION: XR [...] contact the number below. Electronically signed by: Killian Bob MD, [facility]([phone]), at 11/01/2020 4:03 PM Gaurav Shoemaker MD IMG DX ORDERABLES * [...] the number below. ? Electronically signed by: Lili Burgos MD, [facility] ([phone]), at 11/01/2020 4:19 PM Narrative 11/01/2020 4:19 PM EST EXAMINATION: XR CHEST ONE VIEW CLINICAL HISTORY: febrile, tachycardic, TECHNIQUE: 1 view of the chest COMPARISON: Chest radiograph 10/30/2020 FINDINGS: Enteric tube seen along the course of the esophagus with distal tip outside the [id number] beyond the GE junction. Partially visualized cervical [...] of the esophagus with distal tipoutside the [id number] beyond the GE junction. Partially visualized cervicalfusion [...] contact the number below. Electronically signed by: Lili Burgos MD, [facility]([phone]), at 11/01/2020 4:19 PM Gaurav Shoemaker MD IMG DX ORDERABLES * [...] [facility] [place] [address] * (ABNORMAL) Urinalysis with reflex Culture (11/01/2020 [...] CENTER LABORATORY Leukocytes, Urine Dipstick Negative Negative [facility] Appearance, Urine Dipstick Clear Clear [facility] Specific Foster Urine Automated >=1.030(A) 1.006 - 1.030 WHITE [...] Shoemaker MD URINE ORDERABLES Performing Organization Address City/[facility]/ZIP Co de Phone Number [facility] [place] [address] * Blood culture (11/01/2020 5:56 AM EST) Blood Culture No growth at 5 days. [facility] Blood specimen (specimen) 11/01/2020 5:56 AM EST 11/01/2020 7:38 AM EST Narrative Resulting Agency Comment Spec In Lab Gaurav Shoemaker MD MICROBIOLOGY - BLOOD ORDERABLES Performing Organization Address [facility] Co de Phone Number [facility] [place] [address] * (ABNORMAL) Comprehensive metabolic panel (non-fasting) (11/01/2020 [...] [facility] [place] [address] * Differential, Automated (11/01/2020 5:47 AM EST) Neutrophil % 67.7 % [facility] Neutrophil Absolute 4.41 1.70 - 6.10 x10(3)/[facility] LABORATORY Lymph % 19.1 % [facility] Lymphocytes Abs 1.2 0.9 - 3.2 x10(3)/[facility]OR[facility]ORY Monocyte % 12.6 % [facility] Monocyte Abs 0.8 0.3 - 0.9 x10(3)/[facility] Eos % 0.2 % [facility] Eosinophils Abs 0.0 0.0 - 0.4 x10(3)/[facility] Basophil % 0.2 % [facility] Baso Absolute 0.0 0.0 - 0.1 x10(3)/[facility] LABORAT[facility] Immature Gran % 0.20 % [facility] Comment: Immature granulocytes(IG's)percentage and absolute count will include metamyelocytes, myelocytes, and promyelocytes. Blood smears from CBCs yielding IG's will be scanned manually for concordance. If this scan disagrees with the automated IG or if promyelocytes are noted, a manual differential will be performed. Immature Gran Absolute 0.01 0.00 - 0.04 x10(3)/mcL [facility] Blood specimen (specimen) 11/01/2020 5:47 AM EST 11/01/2020 6:04 AM EST Narrative Resulting Agency Comment Spec In Lab Bhumi Corley MD HEMATOLOGY ORDERABLE S Performing Organization Address City/State/[facility] Co de Phone Number [facility] [place] [address] * (ABNORMAL) Hemogram (11/01/2020 5:47 AM EST) White Blood Cell 6.5 4.0 - 9.5 x10(3)/[facility] Red Blood Cell 3.43(L) 4.58 - 5.54 x10(6)/[facility] Hemoglobin 10.6(L) 13.7 - 16.5 gm/dL [...] CENTER LABORATORY Platelet 185 145 - 357 x10(3)/[facility] RDW Standard Deviation 39.7 36.0 - 45.0 [facility] RDW coefficient of variation 12.2 11.4 - 13.8 % [facility] Mean Platelet Volume 10.9 7.6 - 12.9 [facility] NRBC% auto 0.0 % [facility] NRBC Absolute 0.000 0.000 - 0.000 x10(3)/[facility] Blood specimen (specimen) 11/01/2020 5:47 AM EST 11/01/2020 6:04 AM EST Narrative Resulting Agency Comment Spec In Lab Bhumi Corley MD HEMATOLOGY ORDERABLE S [facility] [place] [address] * (ABNORMAL) Basic Metabolic Panel (non-fasting) (11/01/2020 [...] Shoemaker MD CHEMISTRY ORDERABLES Performing Organization Address [facility] Phone Number [facility] [place] [address] * (ABNORMAL) Blood culture (11/01/2020 5:47 AM [...] MICROBIOLOGY - BLOOD ORDERABLES Performing Organization Address [facility] Phone Number [facility] [place] [address] * POCT Glucose (11/01/2020 5:23 AM EST) Glucose, POC 105 65 - 199 mg/dL [facility] Comment: Supplemental ranges: <140 mg/dL before meals <180 mg/dL all other times of the day Blood specimen (specimen) 11/01/2020 5:23 AM EST 11/01/2020 5:23 AM EST Gaurav Shoemaker MD POINT OF CARE TEST O RDERABLES Performing Organization Address [facility]/ZIP Co de Phone Number [facility] [place] [address] * Phosphorus (11/01/2020 3:55 AM EST) Phosphorus 2.9 2.5 - 4.5 mg/dL [facility] Blood specimen (specimen) 11/01/2020 3:55 AM EST 11/01/2020 4:23 AM EST Narrative Resulting Agency Comment Spec In Lab Radha Bolden MD CHEMISTRY ORDERABLES Performing Organization Address [facility] de Phone Number [facility] [place] [address] * Magnesium (11/01/2020 3:55 AM EST) Magnesium 0.79 0.69 - 1.07 mmol/L [facility] Blood specimen (specimen) 11/01/2020 3:55 AM EST 11/01/2020 4:23 AM EST Narrative Resulting Agency Comment Spec In Lab Radha Bolden MD CHEMISTRY ORDERABLES Performing Organization Address [facility] de Phone Number [facility] [place] [address] * XR Fluoro Barium Swallow (Video Swallow [...] ? Electronically signed by: Lawrence Molina MD, [facility] ([phone]), at 10/31/2020 4:12 PM Narrative 10/31/2020 4:12 [...] Soft solid trigger was post piriform sinuses. [place] trigger is post piriform sinuses. With nectar [...] Soft solid trigger was post piriform sinuses. [place] trigger is post piriform sinuses. With nectar [...] the number below. Gaurav Shoemaker MD IMG FLUORO ORDERABLE S * Differential, Automated (10/31/2020 12:42 AM EST) Neutrophil % 68.8 % [facility] Neutrophil Absolute 5.30 1.70 - 6.10 x10(3)/[facility] Lymph % 18.7 % [facility] Lymphocytes Abs 1.4 0.9 - 3.2 x10(3)/[facility] Monocyte % 9.9 % [facility] Monocyte Abs 0.8 0.3 - 0.9 x10(3)/[facility] Eos % 2.0 % [facility] Eosinophils Abs 0.2 0.0 - 0.4 x10(3)/[facility] Basophil % 0.3 % [facility] Baso Absolute 0.0 0.0 - 0.1 x10(3)/[facility] Immature Gran % 0.30 % [facility] Comment: Immature granulocytes(IG's)percentage and absolute count will include metamyelocytes, myelocytes, and promyelocytes. Blood smears from CBCs yielding IG's will be scanned manually for concordance. If this scan disagrees with the automated IG or if promyelocytes are noted, a manual differential will be performed. Immature Gran Absolute 0.02 0.00 - 0.04 x10(3)/[facility] Blood specimen (specimen) 10/31/2020 12:42 AM EST 10/31/2020 1:02 AM EST Narrative Resulting Agency Comment Spec In Lab Alex Oropeza MD HEMATOLOGY ORDERABLE S [facility] [place] [address] * (ABNORMAL) Hemogram (10/31/2020 12:42 AM EST) White Blood Cell 7.7 4.0 - 9.5 x10(3)/mc L [facility] Red Blood Cell 3.00(L) 4.58 - 5.54 x10(6)/mc L [facility] Hemoglobin 9.4(L) 13.7 - 16.5 gm/dL [facility] Hematocrit 27.0(L) 40.5 - 48.5 % [facility] Mean Cell Volume 90.0 82.9 - 93.1 fL [facility] Mean Cell Hemoglobin 31.3 27.5 - 32.1 pg [facility] Mean Cell Hemoglobin Concentration 34.8 32.0 - 35.7 gm/dL [facility] Platelet 138(L) 145 - 357 x10(3)/[facility] RDW Standard Deviation 39.6 36.0 - 45.0 [facility] RDW coefficient of variation 12.1 11.4 - 13.8 % [facility] Mean Platelet Volume 11.7 7.6 - 12.9 fL [facility] NRBC% auto 0.0 % [facility] NRBC Absolute 0.000 0.000 - 0.000 x10(3)/ L [facility] Blood specimen (specimen) 10/31/2020 12:42 AM EST 10/31/2020 1:02 AM EST Narrative Resulting Agency Comment Spec In Lab Alex Oropeza MD HEMATOLOGY ORDERABLE S [facility] [place] [address] * (ABNORMAL) Basic Metabolic Panel (non-fasting) (10/31/2020 12:42 AM EST) Pathologist [facility] [place] Glucose 97 65 - 199 mg/dL WHITE [...] [facility] [place] [address] * (ABNORMAL) Phosphorus (10/31/2020 12:42 AM EST) Phosphorus 2.2(L) 2.5 - 4.5 mg/dL [facility] Blood specimen (specimen) 10/31/2020 12:42 AM EST 10/31/2020 1:02 AM EST Narrative Resulting Agency Comment Spec In Lab Radha Bolden MD CHEMISTRY ORDERABLES Performing Organization Address [facility] Phone Number [facility] [place] [address] * Magnesium (10/31/2020 12:42 AM EST) Magnesium 0.72 0.69 - 1.07 mmol/L [facility] Blood specimen (specimen) 10/31/2020 12:42 AM EST 10/31/2020 1:02 AM EST Narrative Resulting Agency Comment Spec In Lab Radha Bolden MD CHEMISTRY ORDERABLES Performing Organization Address [facility] Phone Number [facility] [place] [address] * POCT Glucose (10/30/2020 7:40 PM EST) Pathologist [facility] [place] Glucose, POC 95 65 - 199 mg/dL [facility] Comment: Supplemental ranges: <140 mg/dL before meals <180 mg/dL all other times of the day Blood specimen (specimen) 10/30/2020 7:40 PM EST 10/30/2020 7:40 PM EST Gaurav Shoemaker MD POINT OF CARE TEST O RDERABLES Performing Organization Address [facility] Phone Number [facility] [place] [address] * Electrolytes panel (10/30/2020 6:15 PM EST) [...] Shoemaker MD CHEMISTRY ORDERABLES Performing Organization Address City/[facility]/ZIP Co de Phone Number [facility] [place] [address] * Osmolality (10/30/2020 4:55 PM EST) Osmolality 281 275 - 295 mOsm/kg [facility] Blood specimen (specimen) 10/30/2020 4:55 PM EST 10/30/2020 5:32 PM EST Narrative Resulting Agency Comment Spec In Lab Gaurav Shoemaker MD CHEMISTRY ORDERABLES Performing Organization Address [facility] Co de Phone Number [facility] [place] [address] * Osmolality, urine, random (10/30/2020 4:36 PM EST) Osmolality, Urine 991 50 - 1,200 mOsm/kg [facility] Urine specimen (specimen) 10/30/2020 4:36 PM EST 10/30/2020 5:49 PM EST Narrative Resulting Agency Comment Spec In Lab Gaurav Shoemaker MD URINE ORDERABLES Performing Organization Address [facility] Co de Phone Number [facility] [place] [address] * Electrolytes, urine, random (10/30/2020 4:36 PM EST) Sodium, Urine 60 mmol/L [facility] Potassium, Urine 43 mmol/L [facility] Chloride, Urine 48 mmol/L [facility] Urine specimen (specimen) 10/30/2020 4:36 PM EST 10/30/2020 5:49 PM EST Narrative Resulting Agency Comment Spec In Lab Gaurav Shoemaker MD URINE ORDERABLES Performing Organization Address City/State/[facility] Co de Phone Number [facility] [place] [address] * XR Chest One View (10/30/2020 4:35 [...] ? Electronically signed by: Rajinder Lam MD, [facility] ([phone]), at 10/30/2020 5:22 PM Narrative 10/30/2020 5:22 [...] contact the number below. Electronically signed by: Rajinder Lam MD, [facility]([phone]), at 10/30/2020 5:22 PM Gaurav Shoemaker MD IMG DX ORDERABLES * [...] [facility]ICAL [facility]ENTER [facility] FIO2 Art 21 % [facility] PF Ratio Art 305 [facility] Blood specimen (specimen) 10/30/2020 3:19 PM EST 10/30/2020 3:19 PM EST Gaurav Shoemaker MD POINT OF CARE TEST O RDERABLES Performing Organization Address [facility] Co de Phone Number [facility] [place] [address] * (ABNORMAL) CK (10/30/2020 1:15 PM EST) Creatine Kinase 333(H) 0 - 200 unit/L [facility] Blood specimen (specimen) 10/30/2020 1:15 PM EST 10/30/2020 1:28 PM EST Narrative Resulting Agency Comment Spec In Lab Gaurav Shoemaker MD CHEMISTRY ORDERABLES Performing Organization Address [facility] Co de Phone Number [facility] [place] [address] * (ABNORMAL) Basic Metabolic Panel (non-fasting) (10/30/2020 [...] [facility] [place] [address] * (ABNORMAL) Differential, Automated (10/30/2020 1:05 AM EST) Pathologist [facility] [place] Neutrophil % 74.4 % [facility] Neutrophil Absolute 7.02(H) 1.70 - 6.10 x10(3)/[facility] Lymph % 13.4 % [facility] Lymphocytes Abs 1.3 0.9 - 3.2 x10(3)/[facility] Monocyte % 11.5 % [facility] Monocyte Abs 1.1(H) 0.3 - 0.9 x10(3)/[facility] Eos % 0.2 % [facility] Eosinophils Abs 0.0 0.0 - 0.4 x10(3)/[facility] Basophil % 0.2 % [facility] Baso Absolute 0.0 0.0 - 0.1 x10(3)/[facility] Immature Gran % 0.30 % [facility] Comment: Immature granulocytes(IG's)percentage and absolute count will include metamyelocytes, myelocytes, and promyelocytes. Blood smears from CBCs yielding IG's will be scanned manually for concordance. If this scan disagrees with the automated IG or if promyelocytes are noted, a manual differential will be performed. Immature Gran Absolute 0.03 0.00 - 0.04 x10(3)/[facility] Blood specimen (specimen) 10/30/2020 1:05 AM EST 10/30/2020 1:24 AM EST Narrative Resulting Agency Comment Spec In Lab Alex Oropeza MD HEMATOLOGY ORDERABLE S [facility] [place] [address] * (ABNORMAL) Hemogram (10/30/2020 1:05 AM EST) [facility] White Blood Cell 9.4 4.0 - 9.5 x10(3)/[facility] Red Blood Cell 3.38(L) 4.58 - 5.54 x10(6)/[facility] Hemoglobin 10.3(L) 13.7 - 16.5 gm/dL [facility] Hematocrit 30.2(L) 40.5 - 48.5 % [facility] Mean Cell Volume 89.3 82.9 - 93.1 [facility] Mean Cell Hemoglobin 30.5 27.5 - 32.1 pg [facility] Mean Cell Hemoglobin Concentration 34.1 32.0 - 35.7 gm/dL [facility] Platelet 159 145 - 357 x10(3)/[facility] RDW Standard Deviation 39.8 36.0 - 45.0 [facility] RDW coefficient of variation 12.2 11.4 - 13.8 % [facility] Mean Platelet Volume 11.6 7.6 - 12.9 [facility] NRBC% auto 0.0 % [facility] NRBC Absolute 0.000 0.000 - 0.000 x10(3)/[facility] Blood specimen (specimen) 10/30/2020 1:05 AM EST 10/30/2020 1:24 AM EST Narrative Resulting Agency Comment Spec In Lab Alex Oropeza MD HEMATOLOGY ORDERABLE S [facility] [place] [address] * (ABNORMAL) Basic Metabolic Panel (non-fasting) (10/30/2020 [...] [facility] [place] [address] * (ABNORMAL) Phosphorus (10/30/2020 1:05 AM EST) Phosphorus 1.8(L) 2.5 - 4.5 mg/dL [facility] Blood specimen (specimen) 10/30/2020 1:05 AM EST 10/30/2020 1:24 AM EST Narrative Resulting Agency Comment Spec In Lab Radha Bolden MD CHEMISTRY ORDERABLES Performing Organization Address [facility]/ZIP Co de Phone Number [facility] [place] [address] * Magnesium (10/30/2020 1:05 AM EST) Magnesium 0.77 0.69 - 1.07 mmol/L [facility] Blood specimen (specimen) 10/30/2020 1:05 AM EST 10/30/2020 1:24 AM EST Narrative Resulting Agency Comment Spec In Lab Radha Bolden MD CHEMISTRY ORDERABLES Performing Organization Address [facility] Co de Phone Number [facility] [place] [address] * (ABNORMAL) Phosphorus (10/29/2020 12:18 PM EST) Phosphorus 1.9(L) 2.5 - 4.5 mg/dL [facility] Blood specimen (specimen) 10/29/2020 12:18 PM EST 10/29/2020 12:36 PM EST Narrative Resulting Agency Comment Spec In Lab Yoel Medellin MD CHEMISTRY ORDERABLES Performing Organization Address [facility] Co de Phone Number [facility] [place] [address] * (ABNORMAL) Urinalysis Microscopic Exam (10/29/2020 12:03 PM EST) RBC, Urine 3 0 - 3 /HPF [facility] WBC, Urine 6(H) 0 - 3 /HPF [facility] Bacteria, Urine Rare(A) None /HPF [facility] Squamous Epithelial Cells Raw Data, Urine 4 <=4 /HPF [facility] Renal Epithelial Cells, Urine 1(H) [...] In Lab Neida Omalley MD URINE ORDERABLES [facility] [place] [address] * (ABNORMAL) Urinalysis with reflex Culture (10/29/2020 [...] CENTER LABORATORY Leukocytes, Urine Dipstick Negative Negative [facility] Appearance, Urine Dipstick Clear Clear [facility] Specific Foster Urine Automated >=1.030(A) 1.006 - 1.030 [facility] Color, Urine Dipstick Yellow Yellow [facility] Reflex to Culture No [facility] Urine specimen obtained via indwelling urinary catheter (specimen) 10/29/2020 12:03 PM EST 10/29/2020 12:37 PM EST Narrative Resulting Agency Comment Spec In Lab Yoel Medellin MD URINE ORDERABLES Performing Organization Address City/[facility]/[place] [address] * Blood culture (10/29/2020 6:10 AM EST) Blood Culture No growth at 5 days. [facility] Blood specimen (specimen) STRUCTURE OF RIGHT HAND / Unknown 10/29/2020 6:10 AM EST 10/29/2020 6:38 AM EST Narrative Resulting Agency Comment Spec In Lab Yoel Medellin MD MICROBIOLOGY - BLOOD ORDERABLES Performing Organization Address [facility] [place] [address] * Blood culture (10/29/2020 6:10 AM EST) Blood Culture No growth at 5 days. [facility] Blood specimen (specimen) STRUCTURE OF LEFT UPPER LIMB / Unknown 10/29/2020 6:10 AM EST 10/29/2020 6:39 AM EST Narrative Resulting Agency Comment Spec In Lab Yoel Medellin MD MICROBIOLOGY - BLOOD ORDERABLES Performing Organization Address [facility] [place] [address] * XR Chest One View (10/29/2020 6:07 [...] course of the esophagus courses off the [id number] inferiorly over the abdomen. Thank you for letting us participate in the care of this patient. For questions regarding this report, please contact the number below. ? Electronically signed by: Allen García MD, [facility] ([phone]), at 10/29/2020 6:35 AM Narrative 10/29/2020 6:35 [...] expected course of the esophagus coursesoff the [id number]-[id number] inferiorly over the abdomen. Thank you for letting us participate in the care of this patient. Forquestions regarding this report, please contact the number below. Electronically signed by: Allen García MD, [facility]([phone]), at 10/29/2020 6:35 AM Yoel Medellin MD IMG DX ORDERABLES * Differential, Automated (10/29/2020 12:50 AM EST) Neutrophil % 79.9 % [facility] Neutrophil Absolute 5.96 1.70 - 6.10 x10(3)/[facility] Lymph % 11.6 % [facility] Lymphocytes Abs 0.9 0.9 - 3.2 x10(3)/[facility] Monocyte % 8.0 % [facility] Monocyte Abs 0.6 0.3 - 0.9 x10(3)/[facility] Eos % 0.0 % [facility] Eosinophils Abs 0.0 0.0 - 0.4 x10(3)/[facility] Basophil % 0.1 % [facility] Baso Absolute 0.0 0.0 - 0.1 x10(3)/[facility] Immature Gran % 0.40 % [facility] Comment: Immature granulocytes(IG's)percentage and absolute count will include metamyelocytes, myelocytes, and promyelocytes. Blood smears from CBCs yielding IG's will be scanned manually for concordance. If this scan disagrees with the automated IG or if promyelocytes are noted, a manual differential will be performed. Immature Gran Absolute 0.03 0.00 - 0.04 x10(3)/[facility] Blood specimen (specimen) 10/29/2020 12:50 AM EST 10/29/2020 1:03 AM EST Narrative Resulting Agency Comment Spec In Lab Alex Oropeza MD HEMATOLOGY ORDERABLE S Performing Organization Address City/State/[facility] Co de Phone Number [facility] [place] [address] * (ABNORMAL) Hemogram (10/29/2020 12:50 AM EST) White Blood Cell 7.5 4.0 - 9.5 x10(3)/mc L [facility] Red Blood Cell 3.64(L) 4.58 - 5.54 x10(6)/mc L [facility] Hemoglobin 11.2(L) 13.7 - 16.5 gm/dL [facility] Hematocrit 32.9(L) 40.5 - 48.5 % [facility] Mean Cell Volume 90.4 82.9 - 93.1 fL [facility] Mean Cell Hemoglobin 30.8 27.5 - 32.1 pg [facility] Mean Cell Hemoglobin Concentration 34.0 32.0 - 35.7 gm/dL [facility] Platelet 146 145 - 357 x10(3)/mc L [facility] RDW Standard Deviation 40.3 36.0 - 45.0 fL [facility] RDW coefficient of variation 12.2 11.4 - 13.8 % [facility] Mean Platelet Volume 11.4 7.6 - 12.9 fL [facility] NRBC% auto 0.0 % [facility] NRBC Absolute 0.000 0.000 - 0.000 x10(3)/mc L [facility] Blood specimen (specimen) 10/29/2020 12:50 AM EST 10/29/2020 1:03 AM EST Narrative Resulting Agency Comment Spec In Lab Alex Oropeza MD HEMATOLOGY ORDERABLE S [facility] [place] [address] * (ABNORMAL) Basic Metabolic Panel (non-fasting) (10/29/2020 12:50 AM EST) Glucose 96 65 - 199 mg/dL WHITE [...] Bolden MD CHEMISTRY ORDERABLES Performing Organization Address City/[facility]/ZIP Co de Phone Number [facility] [place] [address] * (ABNORMAL) Phosphorus (10/29/2020 12:50 AM EST) Phosphorus 1.6(L) 2.5 - 4.5 mg/dL [facility] Blood specimen (specimen) 10/29/2020 12:50 AM EST 10/29/2020 1:03 AM EST Narrative Resulting Agency Comment Spec In Lab Radha Bolden MD CHEMISTRY ORDERABLES [facility] [place] [address] * Magnesium (10/29/2020 12:50 AM EST) Magnesium 0.75 0.69 - 1.07 mmol/L [facility] Blood specimen (specimen) 10/29/2020 12:50 AM EST 10/29/2020 1:03 AM EST Narrative Resulting Agency Comment Spec In Lab Radha Bolden MD CHEMISTRY ORDERABLES Performing Organization Address City/[facility]/ZIP Co de Phone Number [facility] [place] [address] * Differential, Automated (10/28/2020 1:40 AM EST) Neutrophil % 78.6 % [facility] Neutrophil Absolute 5.94 1.70 - 6.10 x10(3)/[facility] Lymph % 12.6 % [facility] Lymphocytes Abs 1.0 0.9 - 3.2 x10(3)/[facility] Monocyte % 8.5 % [facility] Monocyte Abs 0.6 0.3 - 0.9 x10(3)/[facility] Eos % 0.0 % [facility] Eosinophils Abs 0.0 0.0 - 0.4 x10(3)/[facility] Basophil % 0.0 % [facility] Baso Absolute 0.0 0.0 - 0.1 x10(3)/[facility] Immature Gran % 0.30 % [facility] Comment: Immature granulocytes(IG's)percentage and absolute count will include metamyelocytes, myelocytes, and promyelocytes. Blood smears from CBCs yielding IG's will be scanned manually for concordance. If this scan disagrees with the automated IG or if promyelocytes are noted, a manual differential will be performed. Immature Gran Absolute 0.02 0.00 - 0.04 x10(3)/[facility] Blood specimen (specimen) 10/28/2020 1:40 AM EST 10/28/2020 1:46 AM EST Narrative Resulting Agency Comment Spec In Lab Alex Oropeza MD HEMATOLOGY ORDERABLE S [facility] [place] [address] * (ABNORMAL) Hemogram (10/28/2020 1:40 AM EST) Pathologist [facility] [place] White Blood Cell 7.6 4.0 - 9.5 x10(3)/mc L [facility] Red Blood Cell 3.71(L) 4.58 - 5.54 x10(6)/mc L [facility] Hemoglobin 11.3(L) 13.7 - 16.5 gm/dL [...] CENTER LABORATORY Platelet 136(L) 145 - 357 x10(3)/mc L [facility] RDW Standard Deviation 41.5 36.0 - 45.0 [facility] RDW coefficient of variation 12.5 11.4 - 13.8 % [facility] Mean Platelet Volume 11.3 7.6 - 12.9 fL [facility] NRBC% auto 0.0 % [facility] NRBC Absolute 0.000 0.000 - 0.000 x10(3)/ L [facility] Blood specimen (specimen) 10/28/2020 1:40 AM EST 10/28/2020 1:46 AM EST Narrative Resulting Agency Comment Spec In Lab Alex Oropeza MD HEMATOLOGY ORDERABLE S [facility] [place] [address] * Phosphorus (10/28/2020 1:40 AM EST) Pathologist [facility] [place] Phosphorus 3.1 2.5 - 4.5 mg/dL [facility] Blood specimen (specimen) 10/28/2020 1:40 AM EST 10/28/2020 1:46 AM EST Narrative Resulting Agency Comment Spec In Lab Radha Bolden MD CHEMISTRY ORDERABLES Performing Organization Address [facility] de Phone Number [facility] [place] [address] * Magnesium (10/28/2020 1:40 AM EST) Magnesium 0.88 0.69 - 1.07 mmol/L [facility] Blood specimen (specimen) 10/28/2020 1:40 AM EST 10/28/2020 1:46 AM EST Narrative Resulting Agency Comment Spec In Lab Radha Bolden MD CHEMISTRY ORDERABLES Performing Organization Address [facility] de Phone Number [facility] [place] [phone] * (ABNORMAL) Basic Metabolic Panel (non-fasting) (10/28/2020 [...] [facility] [place] [address] * XR Cervical Spine 2 or 3 [...] the number below. ? Electronically signed by: Tim Anthony MD, [facility] ([phone]), at 10/28/2020 3:05 AM Narrative 10/28/2020 3:05 AM EST EXAMINATION: XR [...] contact the number below. Electronically signed by: Tim Anthony MD, [facility]([phone]), at 10/28/2020 3:05 AM Yoel Medellin MD IMG DX ORDERABLES * (ABNORMAL) Hepatic Function Panel [...] Omalley MD CHEMISTRY ORDERABLES Performing Organization Address City/[facility]/ZIP Co de Phone Number [facility] [place] [address] * Potassium (10/27/2020 5:25 PM EST) Potassium [...] Resulting Agency Comment Spec In Lab Yoel Medellin MD CHEMISTRY ORDERABLES Performing Organization Address City/[facility]/ZIP Co de Phone Number [facility] [place] [address] * Magnesium (10/27/2020 5:25 PM EST) Magnesium 0.91 0.69 - 1.07 mmol/L [facility] Blood specimen (specimen) 10/27/2020 5:25 PM EST 10/27/2020 6:15 PM EST Narrative Resulting Agency Comment Spec In Lab Yoel Medellin MD CHEMISTRY ORDERABLES Performing Organization Address City/[facility]/ZIP Co de Phone Number [facility] [place] [address] * XR Chest One View (10/27/2020 2:29 PM EST) Anatomical Region Laterality Modality Chest N/A Digital Radiogra phy Impressions 10/27/2020 2:43 PM EST Endotracheal tube is in a satisfactory position. Thank you for letting us participate in the care of this patient. For questions regarding this report, please contact the number below. ? Electronically signed by: Tre Mendez MD, [facility] ([phone]), at 10/27/2020 2:43 PM Narrative 10/27/2020 2:43 PM EST EXAMINATION: XR [...] this report, please contact the number below. Yoel Medellin MD IMG DX ORDERABLES * XR [...] ? Electronically signed by: Allen García MD, [facility] ([phone]), at 10/28/2020 7:32 AM Narrative 10/28/2020 7:32 [...] this report, please contact the number below. Yoel Medellin MD IMG DX ORDERABLES * (ABNORMAL) Differential, Automated (10/27/2020 1:25 PM EST) Pathologist [facility] [place] Neutrophil % 92.4 % [facility] Neutrophil Absolute 8.31(H) 1.70 - 6.10 x10(3)/[facility] Lymph % 5.3 % [facility] Lymphocytes Abs 0.5(L) 0.9 - 3.2 x10(3)/[facility] Monocyte % 2.0 % [facility] Monocyte Abs 0.2(L) 0.3 - 0.9 x10(3)/[facility] Eos % 0.0 % [facility] Eosinophils Abs 0.0 0.0 - 0.4 x10(3)/[facility] Basophil % 0.1 % [facility] Baso Absolute 0.0 0.0 - 0.1 x10(3)/[facility] Immature Gran % 0.20 % [facility] Comment: Immature granulocytes(IG's)percentage and absolute count will include metamyelocytes, myelocytes, and promyelocytes. Blood smears from CBCs yielding IG's will be scanned manually for concordance. If this scan disagrees with the automated IG or if promyelocytes are noted, a manual differential will be performed. Immature Gran Absolute 0.02 0.00 - 0.04 x10(3)/ L [facility] Blood specimen (specimen) 10/27/2020 1:25 PM EST 10/27/2020 1:29 PM EST Narrative Resulting Agency Comment Spec In Lab Tyesha Lopez MD HEMATOLOGY ORDERABL ES [facility] [place] [address] * (ABNORMAL) Hemogram (10/27/2020 1:25 PM EST) White Blood Cell 9.0 4.0 - 9.5 x10(3)/[facility] Red Blood Cell 3.84(L) 4.58 - 5.54 x10(6)/[facility] Hemoglobin 11.7(L) 13.7 - 16.5 gm/dL [...] CENTER LABORATORY Platelet 169 145 - 357 x10(3)/[facility] RDW Standard Deviation 42.6 36.0 - 45.0 [facility] RDW coefficient of variation 12.6 11.4 - 13.8 % [facility] Mean Platelet Volume 10.9 7.6 - 12.9 fL [facility] NRBC% auto 0.0 % [facility] NRBC Absolute 0.000 0.000 - 0.000 x10(3)/[facility] Blood specimen (specimen) 10/27/2020 1:25 PM EST 10/27/2020 1:29 PM EST Narrative Resulting Agency Comment Spec In Lab Tyesha Lopez MD HEMATOLOGY ORDERABL ES [facility] [place] [address] * Phosphorus (10/27/2020 1:25 PM EST) Phosphorus 3.6 2.5 - 4.5 mg/dL [facility] Blood specimen (specimen) 10/27/2020 1:25 PM EST 10/27/2020 1:29 PM EST Narrative Resulting Agency Comment Spec In Lab Yoel Medellin MD CHEMISTRY ORDERABLES Performing Organization Address City/[facility]/ZIP Co de Phone Number [facility] [place] [address] * (ABNORMAL) Magnesium (10/27/2020 1:25 PM EST) Pathologist [facility] [place] Magnesium 0.61(L) 0.69 - 1.07 mmol/L [facility] Blood specimen (specimen) 10/27/2020 1:25 PM EST 10/27/2020 1:29 PM EST Narrative Resulting Agency Comment Spec In Lab Yoel Medellin MD CHEMISTRY ORDERABLES Performing Organization Address [facility] Co de Phone Number [facility] [place] [address] * (ABNORMAL) Basic Metabolic Panel (non-fasting) (10/27/2020 1:25 PM EST) Pathologist [facility] Glucose 117 65 - 199 mg/dL WHITE [...] Resulting Agency Comment Spec In Lab Yoel Medellin MD CHEMISTRY ORDERABLES [facility] [place] [address] * XR O-Arm No Rad <1Hr - OR Use (10/27/2020 12:00 PM EST) Anatomical Region Laterality Modality N/A Radio Fluoroscop y Impressions 10/27/2020 12:52 PM EST Dose report for intraoperative imaging. Thank you for letting us participate in the care of this patient. For questions regarding this report, please contact the number below. ? Electronically signed by: Delfina Badillo [facility] ([phone]), at 10/27/2020 12:52 PM Narrative 10/27/2020 12:52 PM EST EXAMINATION: XR [...] contact the number below. Electronically signed by: Delfina Badillo [facility]([phone]), at 10/27/2020 12:52 PM Yoel Medellin MD IMG FLUORO ORDERABLE S * [...] [facility]ICAL [facility] FIO2 Art 42 % [facility] PF Ratio Art 364 [facility] Temp Art 35.9 Celsius [facility] Blood specimen (specimen) 10/27/2020 11:29 AM EST 10/27/2020 11:29 AM EST Yoel Medellin MD POINT OF CARE TEST O RDERABLES [facility] [place] [address] * (ABNORMAL) BLOOD GAS 2 ARTERIAL (10/27/2020 [...] MEDICAL CENTER [facility] FIO2 Art 42 % [facility] PF Ratio Art 312 [facility] Temp Art 35.1 Celsius [facility] Blood specimen (specimen) 10/27/2020 10:27 AM EST 10/27/2020 10:27 AM EST Yoel Medellin MD POINT OF CARE TEST O RDERABLES [facility] [place] [id number] * (ABNORMAL) BLOOD GAS 2 ARTERIAL (10/27/2020 9:28 AM EST) pH, Arterial 7.29(Crit ical) 7.35 - 7.45 [facility] Comment: Noted by gyroscopic instrument mechanic. Critical notified to Dr. Mariana Rojas by gyroscopic instrument mechanic immediately following run time. PCO2, Arterial 40 [...] MEDICAL CENTER [facility] FIO2 Art 43 % [facility] PF Ratio Art 398 [facility] Temp Art 34.7 Celsius [facility] Blood specimen (specimen) 10/27/2020 9:28 AM EST 10/27/2020 9:28 AM EST Yoel Medellin MD POINT OF CARE TEST O RDERAMARYAM Performing Organization Address [facility] de Phone Number [facility] [place] [address] * POCT Glucose (10/27/2020 6:19 AM EST) Glucose, POC 101 65 - 199 mg/dL [facility] Comment: Supplemental ranges: <140 mg/dL before meals <180 mg/dL all other times of the day Blood specimen (specimen) 10/27/2020 6:19 AM EST 10/27/2020 6:19 AM EST Yoel Medellin MD POINT OF CARE TEST O VISHAL Performing Organization Address [facility] de Phone Number [facility] [place] [address] * MRI Cervical Spine wo Contrast (Generic) [...] ? Electronically signed by: Allen García MD, [facility] ([phone]), at 10/27/2020 7:01 AM Narrative 10/27/2020 7:01 [...] anterolisthesis of C6 over C7 with bilateral [id number] facets and facet capsular rupture. C6-C7 disc [...] below. Electronically signed by: Allen García MD, [facility]([phone]), at 10/27/2020 7:01 AM Ovi Ramirez MD IMG MRI ORDERABLES * XR [...] ? Electronically signed by: Allen García MD, [facility] ([phone]), at 10/27/2020 5:17 AM Narrative 10/27/2020 5:17 [...] below. Electronically signed by: Allen García MD, [facility]([phone]), at 10/27/2020 5:17 AM Ovi Ramirez MD IMG DX ORDERABLES * XR [...] ? Electronically signed by: Allen García MD, [facility] ([phone]), at 10/27/2020 5:17 AM Narrative 10/27/2020 5:17 [...] below. Electronically signed by: Allen García MD, [facility]([phone]), at 10/27/2020 5:17 AM Ovi Ramirez MD IMG DX ORDERABLES * XR [...] ? Electronically signed by: Allen García MD, [facility] ([phone]), at 10/27/2020 5:17 AM Narrative 10/27/2020 5:17 [...] below. Electronically signed by: Allen García MD, [facility]([phone]), at 10/27/2020 5:17 AM Ovi Ramirez MD IMG DX ORDERABLES * XR [...] ? Electronically signed by: Allen García MD, [facility] ([phone]), at 10/27/2020 5:17 AM Narrative 10/27/2020 5:17 [...] below. Electronically signed by: Allen García MD, [facility]([phone]), at 10/27/2020 5:17 AM Ovi Ramirez MD IMG DX ORDERABLES * XR [...] ? Electronically signed by: Allen García MD, [facility] ([phone]), at 10/27/2020 5:17 AM Narrative 10/27/2020 5:17 [...] below. Electronically signed by: Allen García MD, [facility]([phone]), at 10/27/2020 5:17 AM Ovi Ramirez MD IMG DX ORDERABLES * XR [...] ? Electronically signed by: Allen García MD, [facility] ([phone]), at 10/27/2020 5:17 AM Narrative 10/27/2020 5:17 [...] below. Electronically signed by: Allen García MD, [facility]([phone]), at 10/27/2020 5:17 AM vOi Ramirez MD IMG DX ORDERABLES * XR [...] ? Electronically signed by: Allen García MD, [facility] ([phone]), at 10/27/2020 5:17 AM Narrative 10/27/2020 5:17 [...] below. Electronically signed by: Allen García MD, [facility]([phone]), at 10/27/2020 5:17 AM Ovi Ramirez MD IMG DX ORDERABLES * XR [...] ? Electronically signed by: Allen García MD, [facility] ([phone]), at 10/27/2020 5:17 AM Narrative 10/27/2020 5:17 [...] below. Electronically signed by: Allen García MD, [facility]([phone]), at 10/27/2020 5:17 AM Ovi Ramirez MD IMG DX ORDERABLES * XR [...] ? Electronically signed by: Allen García MD, [facility] ([phone]), at 10/27/2020 5:17 AM Narrative 10/27/2020 5:17 [...] below. Electronically signed by: Allen García MD, [facility]([phone]), at 10/27/2020 5:17 AM Ovi Ramirez MD IMG DX ORDERABLES * XR [...] ? Electronically signed by: Allen García MD, [facility] ([phone]), at 10/27/2020 5:17 AM Narrative 10/27/2020 5:17 [...] below. Electronically signed by: Allen García MD, [facility]([phone]), at 10/27/2020 5:17 AM Ovi Ramirez MD IMG DX ORDERABLES * XR [...] ? Electronically signed by: Allen García MD, [facility] ([phone]), at 10/27/2020 5:17 AM Narrative 10/27/2020 5:17 [...] below. Electronically signed by: Allen García MD, [facility]([phone]), at 10/27/2020 5:17 AM Sergio Dhaliwal MD IMG DX ORDERABLES * [...] ? Electronically signed by: Allen García MD, [facility] ([phone]), at 10/27/2020 5:17 AM Narrative 10/27/2020 5:17 [...] below. Electronically signed by: Allen García MD, [facility]([phone]), at 10/27/2020 5:17 AM Sergio Dhaliwal MD IMG DX ORDERABLES * [...] ? Electronically signed by: Allen García MD, [facility] ([phone]), at 10/27/2020 5:17 AM Narrative 10/27/2020 5:17 [...] below. Electronically signed by: Allen García MD, [facility]([phone]), at 10/27/2020 5:17 AM Sergio Dhaliwal MD IMG DX ORDERABLES * [...] 12:25 AM EST 10/27/2020 12:25 AM EST Ovi Ramirez MD POINT OF CARE TEST O RDERABLES [facility] [place] [address] * (ABNORMAL) BLOOD GAS 2 VENOUS (10/27/2020 [...] 12:14 AM EST 10/27/2020 12:14 AM EST Ovi Ramirez MD POINT OF CARE TEST O RDERABLES Performing Organization Address [facility] Co de Phone Number [facility] [place] [address] * Urinalysis Microscopic Exam (10/26/2020 11:59 PM EST) Pathologist [facility] [place] RBC, Urine 2 0 - 3 /HPF [facility] WBC, Urine 1 0 - 3 /HPF [facility] Squamous Epithelial Cells Raw Data, Urine 2 <=4 /HPF [facility] Hyaline Casts, Urine 1 0 - 2 /LPF [facility] First stream urine specimen (specimen) 10/26/2020 11:59 PM EST 10/27/2020 12:26 AM EST Narrative Resulting Agency Comment Spec In Lab Yoel Medellin MD URINE ORDERABLES Performing Organization Address [facility] Co de Phone Number [facility] [place] [address] * (ABNORMAL) Rapid Drug Screen w/o Confirmation, [...] marijuana metabolites screen detects the THC metabolite (65-gdu-9-carboxy-delta 9-THC) at concentrations >20 ng/mL. A ? [...] Resulting Agency Comment Spec In Lab Yoel Medellin MD CHEMISTRY ORDERABLES [facility] [place] [id number] * (ABNORMAL) Urinalysis with reflex Culture (10/26/2020 [...] CENTER LABORATORY Leukocytes, Urine Dipstick Negative Negative [facility] Appearance, Urine Dipstick Clear Clear [facility] Specific Foster Urine Automated >=1.030(A) 1.006 - 1.030 [facility] [...] Hartley MD URINE ORDERABLES Performing Organization Address [facility]/ZIP Co de Phone Number [facility] [place] [address] * Rapid Drug Screen, Urine (LALITA Request) (10/26/2020 11:59 PM EST) LALITA Conf Requested No [facility] Comment: Collection date/time has been modified to: 23:59:00. ??Previous collection date/time: 23:19:00. Corrected from No [NA] on 10/27/20 0:26:49 EST by Maria E Moses LALITA Requested See Comment [facility] Hartley MD URINE ORDERABLES Performing Organization Address City/[facility]/ZIP Co de Phone Number [facility] [place] [address] * CT Angiogram Carotids (10/26/2020 11:46 PM [...] ? Electronically signed by: Allen García MD, [facility] ([phone]), at 10/27/2020 12:38 AM Narrative 10/27/2020 12:38 AM EST EXAMINATION: REQUEST FOR 2ND READ CT HEAD AND SPINE, CT ANGIOGRAM CAROTIDS CLINICAL HISTORY: trauma found down; What Modality is the exam? CT Scan; Body Part (please add comments as necessary): Head and C spine; Sending Institution [facility]; Date of exam 20201026; I [...] comments as necessary): Head and C spine; [facility]; Date of exam 20201026; I believe a [...] contact the number below. Luann Hartley MD IMFawn CT ORDERABLES * Request For 2nd Read [...] necessary): Head and C spine; Sending Institution [facility]; Date of exam 20201026; I [...] comments as necessary): [facility] C [facility] 20[facility]; I believe a [...] iliac bones. Preliminary report signed by: Jeffrey Vladimir at 10/27/2020 1:33 AM I have personally reviewed the image(s) and the resident's interpretation and agree with the findings, Allen García MD at 10/27/2020 2:07 AM Thank you for letting us participate in the care of this patient. For questions regarding this report, please contact the number below. ? Electronically signed by: Allen García MD, [facility] ([phone]), at 10/27/2020 2:07 AM Narrative 10/27/2020 2:07 AM EST EXAMINATION: REQUEST FOR 2ND READ CT CHEST ABDOMEN PELVIS INSTITUTION WHERE STUDY PERFORMED: [facility] DATE AND TIME OF STUDY: 10/26/2020 20:52 CLINICAL HISTORY: trauma found down; What Modality is the exam? CT Scan; Body Part (please add comments as necessary): Chest abdomen pelvis; Sending Institution [facility]; Date of exam 20201026; I [...] CHEST ABDOMEN PELVIS INSTITUTION WHERE STUDY PERFORMED: [facility] DATE AND TIME OF STUDY: 10/26/2020 20:52 CLINICAL HISTORY: trauma found down; What Modality is the exam? CT Scan;Body Part (please add comments as necessary): Chest abdomen pelvis; Sending Institution [facility]; Date of exam 20201026; I [...] below. Electronically signed by: Allen García MD, [facility]([phone]), at 10/27/2020 2:07 AM Luann Hartley MD IMG OUTSIDE INTERPRE TATION ORDERABLES * (ABNORMAL) L-Lactate2 Whole Blood (10/26/2020 11:31 PM EST) Lactate WB 2.7(H) 0.5 - 2.2 mmol/L [facility] Blood specimen (specimen) 10/26/2020 11:31 PM EST 10/26/2020 11:31 PM EST Luann Hartley MD CHEMISTRY ORDERABLES Performing Organization Address City/[facility]/ZIP Co de Phone Number [facility] [place] [address] * ABORH Recheck Status (10/26/2020 11:10 PM EST) ABORH Recheck Order Order Placed [facility] ABORH Type Recheck Not Performed [facility] Blood specimen (specimen) 10/26/2020 11:10 PM EST 10/26/2020 11:28 PM EST Narrative Resulting Agency Comment Spec In Lab Yoel Medellin MD BLOOD BANK LAB ORDER LORNA [facility] [place] [address] * Gold Tube HOLD (10/26/2020 11:10 PM EST) Pathologist [facility] Gold Hold Sample in lab. [facility] Blood specimen (specimen) Venous Draw / Unknown 10/26/2020 11:10 PM EST 10/26/2020 11:34 PM EST Yoel Medellin MD CHEMISTRY ORDERABLES [facility] [place] [address] * Antibody screen (10/26/2020 11:10 PM EST) [facility] Ab Screen Interp Negative [facility] Expires at [id number] on: 10/29/2020 [facility] Blood specimen (specimen) 10/26/2020 11:10 PM EST 10/26/2020 11:28 PM EST Narrative Resulting Agency Comment Spec In Lab Yoel Medellin MD BLOOD BANK LAB ORDER LORNA Performing Organization Address City/[facility]/ZIP Co de Phone Number [facility] [place] [address] * ABO/Rh Typing (10/26/2020 11:10 PM EST) Pathologist [facility] ABORH Type AB Pos [facility] Blood specimen (specimen) 10/26/2020 11:10 PM EST 10/26/2020 11:28 PM EST Narrative Resulting Agency Comment Spec In Lab Yoel Medellin MD BLOOD BANK LAB ORDER LORNA Performing Organization Address City/[facility]/ZIP Co de Phone Number [facility] [place] [address] * (ABNORMAL) Differential, Automated (10/26/2020 11:10 PM EST) Neutrophil % 85.4 % [facility] Neutrophil Absolute 11.41(H) 1.70 - 6.10 x10(3)/mc L [facility] Lymph % 9.3 % [facility] Lymphocytes Abs 1.2 0.9 - 3.2 x10(3)/ L [facility] Monocyte % 4.3 % [facility] Monocyte Abs 0.6 0.3 - 0.9 x10(3)/ L [facility] Eos % 0.3 % [facility] Eosinophils Abs 0.0 0.0 - 0.4 x10(3)/[facility] Basophil % 0.2 % [facility] Baso Absolute 0.0 0.0 - 0.1 x10(3)/[facility] Immature Gran % 0.50 % [facility] Comment: Immature granulocytes(IG's)percentage and absolute count will include metamyelocytes, myelocytes, and promyelocytes. Blood smears from CBCs yielding IG's will be scanned manually for concordance. If this scan disagrees with the automated IG or if promyelocytes are noted, a manual differential will be performed. Immature Gran Absolute 0.07(H) 0.00 - 0.04 x10(3)/[facility] Blood specimen (specimen) 10/26/2020 11:10 PM EST 10/26/2020 11:31 PM EST Narrative Resulting Agency Comment Spec In Lab Yoel Medellin MD HEMATOLOGY ORDERABLE S Performing Organization Address City/State/[facility] Co de Phone Number [facility] [place] [address] * (ABNORMAL) Hemogram (10/26/2020 11:10 PM EST) White Blood Cell 13.4(H) 4.0 - 9.5 x10(3)/[facility] Red Blood Cell 4.08(L) 4.58 - 5.54 x10(6)/[facility] Hemoglobin 12.4(L) 13.7 - 16.5 gm/dL [...] [facility] R[facility] Standard Deviation 41.0 36.0 - 45.0 [facility] RDW coefficient of variation 12.4 11.4 - 13.8 % [facility] Mean Platelet Volume 10.9 7.6 - 12.9 [facility] NRBC% auto 0.0 % [facility] NRBC Absolute 0.000 0.000 - 0.000 x10(3)/mc L [facility] Blood specimen (specimen) 10/26/2020 11:10 PM EST 10/26/2020 11:31 PM EST Narrative Resulting Agency Comment Spec In Lab Yoel Medellin MD HEMATOLOGY ORDERABLE S Performing Organization Address City/[facility] Co de Phone Number [facility] [place] [address] * (ABNORMAL) Ethanol Level (10/26/2020 11:10 PM EST) Ethanol 1,893(H) <=99 mg/L [facility] Comment: Greater than 800 mg/L (0.08%) should be considered intoxicated. 3400 to 4500 mg/L (0.34 - 0.45%) is considered severe intoxication. Greater than 5500 mg/L (0.55%) is usually fatal. Blood specimen (specimen) 10/26/2020 11:10 PM EST 10/26/2020 11:31 PM EST Narrative Resulting Agency Comment Spec In Lab Luann Hartley MD CHEMISTRY ORDERABLES [facility] [place] [address] * (ABNORMAL) APTT (10/26/2020 11:10 PM EST) [...] Lab Luann Hartley MD HEMATOLOGY ORDERABLE S Performing Organization Address [facility] Co de Phone Number [facility] [place] [address] * Prothrombin Time (10/26/2020 11:10 PM EST) [...] Lab Luann Hartley MD HEMATOLOGY ORDERABLE S Performing Organization Address [facility] Co de Phone Number [facility] [place] [address] * (ABNORMAL) Basic Metabolic Panel (non-fasting) (10/26/2020 [...] [facility] [place] [place] [address] * COVID-19 PCR (10/26/2020 10:58 PM EST) [...] using the Simplexa COVID-19 Direct Assay by [employer] as authorized by the FDA issued Emergency [...] Department of Pathology and Laboratory Medicine at [facility], certified under the Clinical Laboratory Improvement [...] fact sheets at the following FDA website: https://www.fda.gov/medical-devices/jlpfbloqibo-kgbhffk-8103-cudmg-31-znqmejguz- use-a nimcweguieloo-wylxebz-ghvwptu/gcqor-phffjjmpuez-crmx SARS-CoV-2 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 Swab [facility] Nasopharyngeal swab (specimen) 10/26/2020 10:58 PM EST 10/26/2020 11:34 PM EST Comment:Symptoms->Surveillan ce Narrative Resulting Agency Comment Spec In Lab Luann Hartley MD MICROBIOLOGY - GENER AL ORDERABLES Performing Organization Address [facility] Co de Phone Number [facility] [place] [address] * Film Library- Storage Only CT Head And Spine (10/26/2020 9:51 PM EST) Narrative [facility] 10/26/2020 9:51 PM EST This exam is auto-finalizing. It's purpose is for storage only. Rayna Hoover APRN [facility] FILM LIBRARY ORD ERABLES Performing Organization Address [facility] de Phone Number [place], [place] * Film Library- Storage Only CT Chest Abdomen Pelvis (10/26/2020 9:49 PM EST) Narrative [facility] 10/26/2020 9:49 PM EST This exam is auto-finalizing. It's purpose is for storage only. Rayna Hoover APRN [facility] FILM LIBRARY ORD ERABLES Performing Organization Address [facility] de Phone Number [place], [place] documented in this encounter Visit Diagnoses Not on filedocumented in this encounter Admitting Diagnoses Diagnosis Cervical spine fracture Closed fracture of cervical vertebra, unspecified level without mention of spinal cord injury documented in this encounter Administered Medications Inactive Administered Medications - up to 3 most recent administrations Medication Order MAR Action Action Date Dose Rate Site acetaminophen (Tylenol) (32.02 mg/mL) oral liquid 975 [...] Given 11/19/2020 5:47 PM EST 975 mg albuteroL (PROVENTIL) nebulizer solution 2.5 mg 2.5 mg, Nebulization, EVERY 4 HOURS PRN, Starting on Thu11/05/20 at 0943, Until Thu11/20/20 at 1230, Wheezing, Routine Given 11/05/2020 9:50 AM EST 2.5 mg bisacodyL (Dulcolax) suppository 10 mg 10 mg, Rectal, DAILY, First dose on Thu11/03/20 at 1345, Until Discontinued, Perform digital stimulation 30 minutes after administration., Routine Given 11/19/2020 11:31 AM EST 10 mg Given 11/18/2020 8:42 AM EST 10 mg Given 11/17/2020 9:41 AM EST 10 mg docusate sodium (Colace) (10 mg/mL) oral liquid 100 mg 100 mg, Per G Tube, 2 TIMES DAILY, First dose on Thu11/07/20 at 1400, Until Discontinued, Routine Given 11/20/2020 8:09 AM EST 100 mg Given 11/19/2020 9:19 PM EST 100 mg Given 11/19/2020 9:59 AM EST 100 mg heparin (porcine) (5,000 units/1 mL) subcutaneous injection 5,000 Units 5,000 Units, Subcutaneous, EVERY 8 HOURS SCHEDULED, First dose (after last modification) on Thu10/30/20 at 1700, Until Discontinued, Routine Given 11/20/2020 5:18 AM EST 5,000 Units Given 11/19/2020 9:19 PM EST 5,000 Units Given 11/19/2020 2:35 PM EST 5,000 Units ipratropium-albuteroL (DUONEB) 0.5 mg-3 mg(2.5 mg base)/3 mL nebulizer solution 3 mL 3 mL, Nebulization, DAILY PRN, Starting on Thu11/11/20 at 1345, Until Thu11/20/20 at 1230, Wheezing, Routine lactobacillus with pectin capsule 1 capsule 1 [...] Remove lidocaine 5 %(700 mg/patch) patch lidocaine (Xylocaine) 1% (10 mg/mL) injection ONCE PRN, Starting on Thu11/05/20 at 1304, Until Thu11/20/20 at 1230, Intra-Operative (Intra-Procedure), Routine Given 11/05/2020 1:04 PM EST 4 mLs 19- Surgical Site lidocaine (XYLOCAINE) 2 % jelly Topical (Top), EVERY 4 HOURS PRN, Pain, Starting on Thu11/01/20 at 1455, Until Thu11/20/20 at 1230 Given 11/01/2020 3:20 PM EST 20-Other (document i n comment section) melatonin tablet 6 mg 6 mg, Per [...] PM EST Given 11/19/2020 10:00 AM EST ondansetron (pf) (Zofran) (2 mg/mL) injection 4 mg 4 mg, Intravenous, EVERY 8 HOURS PRN, Starting on Thu11/06/20 at 1156, Until Thu11/20/20 at 1230, Nausea Given 11/06/2020 12:12 PM EST 4 mg protein powder 2 Scoop, Per G Tube, 3 TIMES DAILY, First dose on Thu11/14/20 at 1500, Until Discontinued, Routine Given 11/20/2020 9:00 AM EST 2 Scoops Given 11/19/2020 9:00 PM EST 2 Scoops Given 11/19/2020 3:00 PM EST 2 Scoops senna (Senokot) tablet 34.4 mg 34.4 mg, Oral, DAILY, First dose on Thu11/17/20 at 0900, Until Discontinued, Routine Given 11/20/2020 8:09 AM EST 34.4 mg Given 11/19/2020 9:58 AM EST 34.4 mg Given 11/18/2020 8:45 AM EST 34.4 mg sodium chloride 0.9 % (flush) flush [...] Given 11/17/2020 9:42 AM EST 15 mLs tiZANidine (Zanaflex) tablet 4 mg 4 mg, Oral, 3 TIMES DAILY PRN, Starting on Thu11/16/20 at 1241, Until Thu11/20/20 at 1230, Muscle spasms, Routine Given 11/19/2020 5:48 PM EST 4 mg Given 11/19/2020 12:10 AM EST 4 mg Given 11/17/2020 11:44 PM EST 4 mg traZODone (Desyrel) tablet 50 mg 50 mg, Oral, NIGHTLY PRN, Starting on 11/18/20 at 0724, Until Tu11/20/20 at 1230, Sleep, Routine Given 11/19/2020 10:36 PM EST 50 mg Given 11/18/2020 9:24 PM EST 50 mg documented in this [...] Provider: Keisha Trevino)1814 (Given - Provider: Deysi Austin, SWETHA) 0004 (Given - Provider: Amelia Mora, SWETHA)0604 (Given - Provider: Amelia Mora, SWETHA)1135 (Given - Provider: Yola Estrada, SWETHA)1747 (Given - Provider: Mike Lorenzo RN) 0033 (Given - Provider: Natalie Bailey, SWETHA)0517 (Given - Provider: Natalie Bailey RN) bisacodyL (Dulcolax) suppository 10 mg 10 mg, Rectal, DAILY, First dose on 11/03/20 at 1345, Until Discontinued, Perform digital stimulation 30 minutes after administration., Routine 0842 (Given - Provider: Deysi Austin RN) 1131 (Given - Provider: Yola Estrada, SWETHA) 0900 (Due) docusate sodium (Colace) (10 mg/mL) oral liquid 100 mg 100 mg, Per G Tube, 2 TIMES DAILY, First dose on Thu11/07/20 at 1400, Until Discontinued, Routine 0845 (Given - Provider: Deysi Austin, SWETHA)2124 (Given - Provider: Deysi Austin RN) 0959 (Given - Provider: Mike Lorenzo, SWETHA)211 (Given - Provider: Ten Dove RN) 0809 (Given - Provider: Eliane Lynch RN) heparin (porcine) (5,000 units/1 mL) subcutaneous injection 5,000 Units 5,000 Units, Subcutaneous, EVERY 8 HOURS SCHEDULED, First dose (after last modification) on Thu10/30/20 at 1700, Until Discontinued, Routine 0615 (Given - Provider: Ten Dove RN)1427 (Given - Provider: Tuyet Oliveira, SWETHA)2129 (Given - Provider: Deysi Austin RN) 0604 (Given - Provider: Amelia Mora RN)143 (Given - Provider: Mike Lorenzo, SWETHA)2118 (Given - Provider: Ten Dove RN) 0518 (Given - Provider: Natalie Bailey RN) lactobacillus with pectin capsule 1 capsule 1 capsule, Oral, DAILY, First dose on Thu11/12/20 at 1515, Until Discontinued, Break capsule and administer contents via G tube with water or add to meals/thickened liquids, Routine 0845 (Given - Provider: Deysi Austin RN) 0959 (Given - Provider: Mike Lorenzo RN) 0809 (Given - Provider: Eliane Lynch RN) lidocaine (LIDODERM) 5 % patch 3 patch(Linked [...] RN)2120 (Given - Provider: Ten Dove RN) 0809 (Given - Provider: Eliane Lynch RN) protein powder 2 Scoop, Per G Tube, 3 TIMES DAILY, First dose on Thu11/14/20 at 1500, Until Discontinued, Routine 0853 (Given - Provider: Deysi Austin RN)1517 (Given - Provider: Deysi Austin RN)2130 (Given - Provider: Deysi Austin RN) 0900 (Given - Provider: Mike Lorenzo RN)1500 (Given - Provider: Mike Lorenzo RN)2100 (Given - Provider: Ten Dove RN) 0900 (Given - Provider: Eliane Lynch RN) senna (Senokot) tablet 34.4 mg 34.4 [...] Routine 0840 (Given - Provider: Deysi Austin RN)2128 (Given - Provider: Deysi Austin RN) 0959 (Given - Provider: Mike Lorenzo RN)212 (Given - Provider: Ten Dove RN) 0816 (Given - Provider: Eliane Lynch RN) sodium chloride 3 % nebulizer solution 15 mL 15 mL, Nebulization, 2 TIMES DAILY, First dose on Thu11/06/20 at 1215, Until Discontinued, Routine 0841 (Not Given - Provider: Deysi Austin RN - Reason: Patient/family refused)2100 (Not Given - Provider: Deysi Austin RN - Reason: Patient/family refused) 0959 (Not Given - Provider: Mike Lorenzo RN - Reason: Patient/family refused)2119 (Given - Provider: Ten Dove, SWETHA) 0808 (Given - Provider: Eliane Lynch RN) Continuous Medication Order 11/18/2020 11/19/2020 11/20/2020 tube feeding diet () 1,080 mL, Per G Tube, at 45 mL/hr, CYCLIC, Starting on 11/18/20 at 1800, Until Thu11/19/20 at 0559, Administer [...] 90 1810 (New Bag - Provider: Mike Lorenzo, SWETHA) 0600 (New Bag - Provider: Natalie Bailey [...] 50 mg, Oral, NIGHTLY PRN, Starting on Thu11/18/20 at 0724, Until Thu11/20/20 at 1230, Sleep, Routine 2123 (Given - Provider: Deysi Austin, SWETHA) 223 (Given - Provider: Natalie Bailey, SWETHA) Linked Groups Order Group 1: lidocaine (LIDODERM) [...] documented as of this encounter Care Teams Merchandise Appraiser Relationship Specialty Start Date End Date Rayna Hoover APRN [address] [place] [address] PCP - General Family Medicine 07/01/18 08/21/21 documented as of this encounter
--- OUTSIDE RECORDS SUMMARY | 2024-07-22 15:11 | XMS_ITS | Encounter Summary ---
Author Organization [facility] [place] [address] Care Team Providers Care Air Shovel Operator Name Role Phone Rayna Pino APRN Primary Care Provider [phone] Encounter Details Date Type Department Care Team (Late st Contact Info) Description 10/26/2020 11:40 PM EST Ancillary Procedure Radiology Library at [facility] [place] [phone] Social History Tobacco Use Types Packs/Day Years [...] Procedure Name Priority Date/Time Associated Diagnosis Comments REQUEST FOR 2ND READ CT HEAD AND SPINE STAT 10/26/2020 11:34 PM EST documented in this encounter Results * CT Angiogram Carotids (10/26/2020 11:46 PM [...] necessary): Head and C spine; Sending Institution [facility]; Date of exam 20201026; I believe a [...] comments as necessary): [facility]; Date of exam 20201026; I believe a [...] this report, please contact the number below. Josué Andrews MD IMG CT ORDERABLES * Request For 2nd Read [...] necessary): Head and C spine; Sending Institution [facility]; Date of exam 20201026; I believe a [...] comments as necessary): [facility]; [facility] of exam 20201026; I believe a [...] this report, please contact the number below. Josué Andrews MD IMG OUTSIDE INTERPRE TATION ORDERABLES documented in this encounter Visit Diagnoses Not on filedocumented in this encounter Additional Health Concerns Infection Onset Date Last Indicated Resolved Time Rule Out C. difficile 11/02/2020 11/04/20202020 3:56 PM EST documented as of this encounter Care Teams Air Shovel Operator Relationship Specialty Start Date End Date Rayna Pino, [place] [address] [place] [address] PCP - General Family Medicine 07/01/18 08/21/21 documented as of this encounter
--- OUTSIDE RECORDS SUMMARY | 2024-07-22 15:11 | XMS_ITS | Encounter Summary ---
Author Organization [facility] [place] [address] Care Team Providers Care Sinter Machine Operator Name Role Phone Rayna Pino APRN Primary Care Provider [phone] Encounter Details Date Type Department Care Team (Late st Contact Info) Description 10/26/2020 9:55 PM EST Ancillary Procedure Radiology Library at [facility] [place] [id number] Social History Tobacco Use Types Packs/Day Years [...] Diagnosis Comments FILM LIBRARY STORAGE ONLY CT HEAD AND SPINE STAT 10/26/2020 9:51 PM EST documented in this encounter Results * Film Library- Storage Only CT Head And Spine (10/26/2020 9:51 PM EST) Narrative [facility] - 10/26/2020 9:51 PM EST This exam is auto-finalizing. It's purpose is for storage only. Rayna Pino APRN [facility] FILM LIBRARY ORD ERABLES [place], [place] documented in this encounter Visit Diagnoses Not on filedocumented in this encounter Care Teams Sinter Machine Operator Relationship Specialty Start Date End Date Rayna Pino APRN [address] [place] [address] PCP - General Family Medicine 07/01/18 08/21/21 documented as of this encounter
--- OUTSIDE RECORDS SUMMARY | 2024-07-22 15:11 | XMS_ITS | Encounter Summary ---
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 OPERATOR, ORTHO Dispo: IPR,CRC working on dispo plan Status: Floor Incidental Findings: - Nonspecific small lytic foci within the iliac bones. [x] Incidental Findings Form Completed by Mikayla Loomis MD 11/15/2020. KAN Nichole 11/16/2020 Trauma pager [phone] Associated attestation - Adrienne Medellin MD - [...] wbc, hgb, hct plt Recent Labs 11/16/20 0031 11/15/208 11/14/20 0112 [...] posterior instrumented fusion. Progressing well post operatively. [place] removed today and steri- strips placed. Orthopaedic [...] Time Provider Department Center 12/19/2020 12:45 PM [facility] DX ROOM 1 MH Xray [facility] Rad 12/19/2020 1:40 PM Robbin Tong MD [facility] Pain Sp [facility] * Mariajose Thomas RCP - 11/15/2020 1:05 [...] person, place, and time. Labs: Recent Labs 11/15/2021711/14/20 0112 11/13/20 0358 WBC 7.5 7.4 9.4 HGB [...] - PEG, TF (to be resumed) - PELLETIZER OPERATOR 11/14 ok for thin liquids, regular diet [...] for neurogenic bladder, PEG Consults (Please see senior professional services consultant notes): PT/OT, Ortho, Psych, PELLETIZER OPERATOR, ORTHO Dispo: IPR,CRC working on dispo plan Status: Floor Incidental Findings: - Nonspecific small lytic foci within the iliac bones. [] Incidental Findings Form Completed Mikayla Loomis MD 11/15/2020 Trauma pager [phone] Associated attestation - Adrienne Medellin MD - [...] A+Ox4. PERRLA. BUE strengths 3/5. 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 Pt reports feeling staff touching [...] complaints about thickening agents for safe swallowing. PELLETIZER OPERATOR to work with the patient today and [...] - PEG, TF (to be resumed) - PELLETIZER OPERATOR 11/14 ok for thin liquids, regular diet [...] for neurogenic bladder, PEG Consults (Please see senior professional services consultant notes): PT/OT, Ortho, Psych, PELLETIZER OPERATOR, ORTHO Dispo: IPR,CRC working on dispo plan Status: Floor Incidental Findings: - Nonspecific small lytic foci within the iliac bones. [] Incidental Findings Form Completed Deisy Diamond, H[place]IGH 11/14/2020 Trauma pager [phone] Associated attestation - Adrienne Medellin MD - [...] Samuel Hernandez - 11/14/2020 2:59 PM EST Wallpaper Consultant Encounter Note Patient Name: Bruce Velasquez Jr. : [id number] MR#: [id number] Admit Date: 10/26/2020 10:56 PM Hospital Day 19 days Narrative: Visited to introduce and assess acceptance of Wallpaper Consultant services. Pt was not available and I will visit an other time. Assessment: Intervention and Outcome: Follow-up: Time in Direct Care: Samuel Hernandez 11/14/2020 * Zabrina Disla SLP - 11/14/2020 10:48 AM EST Speech Therapy Note Patient Profile: Bruce Velasquez Jr.??is a 55 y.o.??male??found down on 10/26 and taken to [facility] where he was hypotensive and bradycardic. Trauma workup revealed a C6/7 jumped facet injury. ??He was transferred to for further management??and is s/p open reduction C6-7 bilateral facet dislocation, C4-T2 PSIF??10/27.??PELLETIZER OPERATOR following for dysphagia management.?? Interval History: Pt [...] Pt was seen today for a follow-up PELLETIZER OPERATOR visit. Pt demonstrates an interval improvement inswallow [...] Speech Language Pathology: 20 Zabrina Disla MS, CCC-PELLETIZER OPERATOR Inpatient Speech Pathologist Pager #[phone] * Radha Florez, RD - 11/14/2020 10:12 [...] No Injury Device Sites: O2 sat monitor, [place] J/cervical collar, AFO/Christiano boots, IV sites Other Sites: (PEG) Relevant medications: liquid tylenol q6h, dulcolax, colace, lactobacillus Last Bowel Movement: 11/13/20(Pt reports PT cleaned him up) Admit Weight: 92.8 kg Estimated body mass index is 28.35 kg/m?? as calculated from the following: Height as of this encounter: 188 cm (6' 2.02). Weight as of this encounter: 100.2 kg (220 lb 14.4 oz). [place] Body Weight: 86.3 kg Usual Body Weight: n/a Wt Readings from Last 10 Encounters: 10/31/20 100.2 kg (220 lb 14.4 oz) 01/16/12 90.7 kg (200 lb) Assessment: Estimated needs: Calories: 4546-7926 kcal (20-25 kcal/kg) Protein: 129 grams (1.5g/kg IBW) Nutrition Focused Physical Exam (NFPE): Not performed Nutrition intake and intake history/Interview: Team would like to restart tube feeds at lowest continuous rate as patient is not taking in adequate PO intake and TPN is a barrier to discharge. Protein-calorie Malnutrition: Not identified (Cornelius, MASOUD J Parenteral Enteral Nutr. 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 Pt taken to inpatient rehab gym [...] plan as stated. Time IN / OUT: 3942-5833 Total Evaluation Minutes, Physical Therapy: 63(x4 TEF) Liliane Barber PT Pager: [phone] Physical Therapy Inpatient Rehabilitation Department * Rosalba Neumann RN - 11/14/2020 3:23 AM EST OUTCOME EVALUATION NOTE: OUTCOME SUMMARY: Pt A&O, neuro unchanged. VSS on RA. [place] J collar in place, care completed. 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, complete, C8 and below Rapid Covid19 PCR resulted @ 22:58 hours on 10/26/2020; not detected ([facility]) Patient plan of care discussed in multidisciplinary [...] as possible Discharge planning to date: OCM MOTOR HOTEL MANAGER involved with assisting patient's daughter with insurance coverage; disability; coping/emotional support Rehab referrals placed and currently under review Current Referral in place: [facility] (11/12/2020); [facility] admissions team with clinical questions snap chatted [...] Liliane Barber, PT - 11/13/2020 12:39 PM Ijeoma DUMONT Rec: inpt SCI rehab, acute rehab Physical Therapy Note Treatment Number PT: 9 Patient profile: Bruce Velasquez Jr.??is a 55 y.o.?male??found down on 10/26 and taken to [facility] where he was hypotensive and [...] without AD, 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 Time IN / OUT: 0613-7101 Total Evaluation Minutes, Physical Therapy: 77(x5 TEF) Liliane Barber PT Pager: [phone] Physical Therapy Inpatient Rehabilitation Department * Jeronimo Lawson, OT - 11/13/2020 11:20 AM EST Occupational Therapy Treatment Note Treatment Number OT: 8 Patient Dx: Bruce Velasquez Jr.??is a 55 y.o.?male??found down on 10/26 and taken to [facility] where he was hypotensive and bradycardic. Trauma workup revealed a C6/7 jumped facet injury. ??He was transferred to for further management??and is s/p open reduction C6-7 bilateral facet dislocation, C4-T2 PSIF??10/27. Social History: Patient lives??alone in a 1st floor apartment with 2 steps to enter.?? DME:??none Baseline ADL/Mobility:??fully independent, works FT for a [employer].?? Precautions/Special Considerations: fall risk; high risk for skin breakdown; [place] at all times; can maintain own [...] ~ 45 degrees, pt initially participating w/ POARCH assist w/ RUE, elbow supported on pillows; however, following cursory shave, pt requested TotalA for thoroughness ?? Pt TotalA for doff/don of cervical collar seated in w/c ?? Pt MaxA for doff/don of hospital gown and sponge bath of neck/facial area following shaving ?? Pt left using [employer] head phones to control phone and call [...] don in AM prior to transfer to [facility] Occupational Therapy Goals: To be achieved [...] Minutes, Occupational Therapy: 72(sc x 5) Pager: [phone] Jeronimo Lawson OT Occupational Therapy Rehabilitation Department [...] in 1200 ml. . Discussed with Trauma (0023). TPN Medication Recent History (Show up to 3 orders; newest on the left. Changes between the two most recent orders are indicated.) Start date and time 11/13/2020 1800 11/12/2020 1800 11/09/2020 1800 TPN Adult [[id number]] TPN Adult [[id number]] TPN Adult [[id number]] Order Status Active Discontinued Last Admin New Bag at 11/12/2020 1813 by Lina Bridges RN New Bag at 11/11/2020 1840 by Angelia Ward RN Additives trace elements Zn-Cu-Mn-Se 1 mL 1 mL 1 mL folic acid 1,000 mcg 1,000 mcg 1,000 mcg ascorbic acid (vitamin C) 100 mg 100 mg 100 mg Vit O6-Y3-L6-B5-B6 (B Complex) 1 mL 1 mL 1 [...] encounter: 100.2 kg (220 lb 14.4 oz). [place] Body Weight: 86.3 kg Usual Body Weight: Wt Readings from Last 10 Encounters: 10/31/20 100.2 kg (220 lb 14.4 oz) 01/16/12 90.7 kg (200 lb) Assessment: Estimated needs: Calories: 7684-6484 kcal (20-25 kcal/kg) Protein: 200 grams (2g/kg ) Nutrition Focused Physical Exam (NFPE): Not performed Nutrition intake and intake history/Interview: n/a Protein-calorie Malnutrition: Not identified (MASOUD Shields J Parenteral Enteral Nutr. 2012 March; 36(3): 273-83) Nutrition to continue to follow up while inpatient [address]AMES [address] Pager #: [phone] * Carin Armstrong MOTOR HOTEL MANAGER - 11/13/2020 9:58 AM EST Met with the patient to complete a disability form sent by his daughter. 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 Labs: Recent Labs 11/13/20 0358 11/12/20 0240 11/11/20 0415 WBC 9.4 8.1 8.5 HGB 10.4* 10.4* 10.2* HCT 31.7* 31.5* 31.3* PLATELET 330 326 329 Recent Labs 11/13/208 11/12/20 0240 11/11/20 0415 NA 139 139 138 [...] Will discuss safety of advancing diet with PELLETIZER OPERATOR today. Plan: Traumatic Injuries: Injury Intervention Follow-up [...] qHS Dysphagia - PEG, TF (held) - PELLETIZER OPERATOR 11/08: dysphagia soft, nectar thick liquids Resolved in hospital issues: Chronic health conditions: Fluids/Electrolytes: tolerating PO Diet: per PELLETIZER OPERATOR Activity status: Activity As Tolerated Spine status: Orthopedics Pulmonary toilet: Encourage frequent mobilization, IS use, titrate O2 >90 DVT PPX: SCDs, SQ Heparin q8hrs GI PPX: PPI Lines/Tubes/Drains: PIV, Beck 10/26 for neurogenic bladder, PEG Consults (Please see senior professional services consultant notes): PT/OT, Ortho, Psych, PELLETIZER OPERATOR, ORTHO Dispo: IPR,CRC working on dispo plan Status: Floor Incidental Findings: - Nonspecific small lytic foci within the iliac bones. 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 Time IN / OUT: 2619-2416 Total Evaluation Minutes, Physical Therapy: 48(x3 TEF) Liliane Barber PT Pager: [phone] Physical Therapy Inpatient Rehabilitation Department * Saritha Louie RN - 11/12/2020 4:05 PM EST RN-FRENCH TUTOR, Office of Care Management Saritha Louie RN,BSN, ACM Pager # [phone] e-DH reviewed. Patient discussed daily in interdisciplinary rounds. Patient worked with rehab today with family on the phone. Patient has discussed rehab with his boss and Has requested to expand referral to: [place] [address] nurse specialist notified. Patient has wireless headset and phone but does need some assist with technology. MOTOR HOTEL MANAGER/Bowl Topper remains available as needed for coordination of [...] Device Sites: O2 sat monitor, IV sites, kiran, SCD's/[place] J/cervical collar Other Sites: PEG Relevant medications: dulcolax, liquid tylenol Last Bowel Movement: 11/11/20 Admit Weight: 92.8 kg Estimated body mass index is 28.35 kg/m?? as calculated from the following: Height as of this encounter: 188 cm (6' 2.02). Weight as of this encounter: 100.2 kg (220 lb 14.4 oz). [place] Body Weight: 86.3 kg Usual Body Weight: n/a Wt Readings from Last 10 Encounters: 10/31/20 100.2 kg (220 lb 14.4 oz) 01/16/12 90.7 kg (200 lb) Assessment: Estimated needs: Calories: 0661-4379 kcal (20-25 kcal/kg) Protein: 129 grams (1.5g/kg [...] while inpatient RADHA FLOREZ RD Pager #: [phone] * Jeronimo Lawson, ERNESTO - 11/12/2020 2:24 PM EST Occupational Therapy Treatment Note Treatment Number OT: 7 Patient Dx: Bruce Velasquez .??is a 55 y.o.?male??found down on 10/26 and taken to [facility] where he was hypotensive and bradycardic. Trauma workup revealed a C6/7 jumped facet injury. ??He was transferred to for further management??and is s/p open reduction C6-7 bilateral facet dislocation, C4-T2 PSIF??10/27.? Social History: Patient lives??alone in a 1st floor apartment with 2 steps to enter.?? DME:??none Baseline ADL/Mobility:??fully independent, works FT for a [employer].?? Precautions/Special Considerations: fall risk; high risk for skin breakdown; [place] at all times; can maintain own [...] to release item and use functional tenodesis donor center technician in RUE w/ assist from his LUE [...] ?? Pt demonstrating increased understanding of tenodesis donor center technician in RUE as pt able to drop and package pick up ?? UE Right Left Strength Strength Shoulder [...] RUE as pt able to release and package pick up built up ADL tool w/ assist from [...] Minutes, Occupational Therapy: 45(sc x 3) Pager: [phone] Jeronimo Lawson OT Occupational Therapy Rehabilitation Department [...] and time. Labs: Recent Labs 11/12/20 0240 11/11/205 11/10/20 0100 WBC 8.1 8.5 6.8 HGB [...] speak with daughter today at 1:30pm via [email or web address] per social work. Plan: Traumatic Injuries: Injury [...] qHS Dysphagia - PEG, TF (held) - PELLETIZER OPERATOR 11/08: dysphagia soft, nectar thick liquids Resolved in hospital issues: Chronic health conditions: Fluids/Electrolytes: tolerating PO Diet: per PELLETIZER OPERATOR Activity status: Activity As Tolerated Spine status: Orthopedics Pulmonary toilet: Encourage frequent mobilization, IS use, titrate O2 >90 DVT PPX: SCDs, SQ Heparin q8hrs GI PPX: PPI Lines/Tubes/Drains: PIV, Beck 10/26 neurogenic bladder, PEG Consults (Please see senior professional services consultant notes): PT/OT, Ortho, Psych, PELLETIZER OPERATOR, ORTHO Dispo: IPR,CRC working on dispo plan Status: Floor Incidental Findings: - Nonspecific small lytic foci within the iliac bones. [] Incidental Findings Form Completed Mikayla Loomis MD 11/12/2020 Trauma pager [phone] Associated attestation - Adrienne Medellin MD - [...] Diet:Dysphagia soft Nutrition Recommendations: Cyclic hypo-caloric TPN [id number] calories from 200 g protein and 100 g CHO in 1680 ml. Decreased magnesium by 8 mEq to 10 mEq.. Discussed with Trauma ([id number]). TPN Medication Recent History (Show up to 3 orders; newest on the left. Changes between the two most recent orders are indicated.) Start date and time 11/12/2020 1800 11/09/2020 1800 11/08/2020 1800 TPN Adult [[id number]] TPN Adult [[id number]] TPN Adult [[id number]] Order Status Active Active Last Admin New Bag at 11/11/2020 1840 by Angelia Ward RN New Bag at 11/08/2020 1810 by Roselia Paez RN Additives trace elements Zn-Cu-Mn-Se 1 mL 1 mL 1 mL folic acid 1,000 mcg 1,000 mcg 1,000 mcg ascorbic acid (vitamin C) 100 mg 100 mg 100 mg Vit T8-K4-U5-B5-B6 (B Complex) 1 mL 1 mL 1 [...] O2 sat monitor, IV sites, beck, SCD's/venodynes, [place] J/cervical collar Other Sites: PEG Relevant medications: folic acid, colace, MVI w minerals, Kphos, senna, thiamine Last Bowel Movement: 11/11/20 Admit Weight: 92.8 kg Estimated body mass index is 28.35 kg/m?? as calculated from the following: Height as of this encounter: 188 cm (6' 2.02). Weight as of this encounter: 100.2 kg (220 lb 14.4 oz). [place] Body Weight: 86.3 kg Usual Body Weight: Wt Readings from Last 10 Encounters: 10/31/20 100.2 kg (220 lb 14.4 oz) 01/16/12 90.7 kg (200 lb) Assessment: Estimated needs: Calories: 1086-7084 kcal (20-25 kcal/kg) Protein: 200 grams (2g/kg ) Nutrition Focused Physical Exam (NFPE): Not performed Nutrition intake and intake history/Interview: n/a Protein-calorie Malnutrition: Not identified (Cornelius, MASOUD J Parenteral Enteral Nutr. 2011; 36(3): 273-83) Nutrition to continue to follow up while inpatient RADAMES [address] RD Pager #: [phone] Iram Betancourt RN - 11/11/2020 3:58 PM EST OUTCOME [...] sensory deficits provided, if applicable: [X] N/A Radha Concepcion MD - 11/11/2020 2:08 PM EST Trauma Daily Progress Note ID/Mechanism of injury:55 y.o. Male admitted on 10/26/2020 following being found down for the management of Spinal injuries (Please see below box for a complete summary of injuries) 24 Hour Events: - diet upgraded to dysphagia soft with nectar thick per PELLETIZER OPERATOR - duonebs changed to PRN Subjective: Reports [...] time. Labs: Recent Labs 11/11/20 0415 11/10/20 0100 11/09/20 0225 WBC 8.5 6.8 6.7 HGB 10.2* 10.2* 9.8* HCT 31.3* 31.5* 30.7* PLATELET 329 358* 322 Recent Labs 11/11/20 0415 11/10/20 0100 11/09/20 0225 NA 138 137 135 K 4.5 4.6 [...] qHS Dysphagia - PEG, TF (held) - PELLETIZER OPERATOR 11/08: dysphagia soft, nectar thick liquids Resolved in hospital issues: Chronic health conditions: Fluids/Electrolytes: tolerating PO Diet: per PELLETIZER OPERATOR Activity status: Activity As Tolerated Spine status: Orthopedics Pulmonary toilet: Encourage frequent mobilization, IS use, titrate O2 >90 DVT PPX: SCDs, SQ Heparin q8hrs GI PPX: PPI Lines/Tubes/Drains: PIV, Beck 10/26 neurogenic bladder, PEG Consults (Please see senior professional services consultant notes): PT/OT, Ortho, Psych, PELLETIZER OPERATOR, ORTHO Dispo: IPR,CRC working on dispo plan Status: Floor Incidental Findings: - Nonspecific small lytic foci within the iliac bones. [] Incidental Findings Form Completed KAN Maldonado 11/11/2020 Trauma pager [phone] Attending Addendum I have seen and examined [...] Radha Bolden MD [phone] * Temo Ani NeumannMSW - 11/11/2020 1:55 PM EST MOTOR HOTEL MANAGER assisting with facetime this afternoon with daughter at 3:30 Thursday MOTOR HOTEL MANAGER please assist pt with facetime call at 1:30. See notes Office of Care Management Float/Weekend Mitochondrial Disorders Counselor LORENA Vieira Pager [phone] * Guzman Johnpedro Kahn OCEAN CLAM BOAT CAPTAIN - 11/11/2020 8:17 AM EST Respiratory Therapy NIV Note NIV Settings: RA NIV Measurements: Resp: 16 SpO2: 97 % Laboratory: Lab Results Component Value Date/Time PHART 7.43 10/30/2020 03:19 PM [id number] 36 10/30/2020 03:19 PM PO2ART 64 (L) 10/30/2020 03:19 PM [id number] 23.4 10/30/2020 03:19 PM BEART -0.8 10/30/2020 [...] below. Electronically signed by: Lili Burgos MD, [facility] ([phone]), at 11/05/2020 11:58 AM Current Medications: Skin [...] remains unchanged with sensory and motor losses. [place];J on and aligned, collar care completed 0430. Sharla to posterior neck are WDL. Patient's PEG [...] therapy Armando Solis RCP * Zabrina Disla, PELLETIZER OPERATOR - 11/10/2020 5:13 PM EST Speech Therapy Note Patient Profile: Bruce Velasquez .??is a 55 y.o.??male??found down on 10/26 and taken to [facility] where he was hypotensive and bradycardic. Trauma workup revealed a C6/7 jumped facet injury. ??He was transferred to for further management??and is s/p open reduction C6-7 bilateral facet dislocation, C4-T2 PSIF??10/27.??PELLETIZER OPERATOR following for dysphagia management.?? Interval History: Pt advanced onto clear liquid diet this AM by team. Subjective: Pt seen briefly as MOTOR HOTEL MANAGER attempting to set up iPad for Zoom [...] otherwise unchanged. Bolus Presentation(s): ?? Deferred given MOTOR HOTEL MANAGER visit Education: Reviewed that current diet restriction is due to concern for ileus rather than dysphagia. Assessment: Pt was seen today for a follow-up PELLETIZER OPERATOR visit. Clarified with pt that some of current diet restrictions are a result of concern for resolving ileus. PELLETIZER OPERATOR will f/u next week as diet is further liberalized by team. Will plan to see pt on . Please do not advance solids past dysphagia soft, or liquids past nectar thick until swallow reassessment occurs. Diagnosis: mild oropharyngeal dysphagia Recommendations: Diet: Dysphagia soft, [place] thick liquids PO medications: IV or other [...] Speech Language Pathology: 8 Zabrina Disla MS, [facility]-PELLETIZER OPERATOR Inpatient Speech Pathologist Pager #[phone] * Ani Plascencia MSW - 11/10/2020 2:14 PM EST MOTOR HOTEL MANAGER met with pts daughter and pts mother in lobby today. They brought the following for pt: -Ipad plus bench technician -Blue tooth head phone plus bench technician -Two hats -Pts personal phone pls 2 phone chargers -Stylus pen so pt can hold and type -Photo collage -Phone bench technician tower -Numerous devices to hold in hand to work it out Over the next few hours: MOTOR HOTEL MANAGER cleaned belongings, moved around belongings in room so they could be easier to get for pt, put sponge around stylus pen for pt to grab, put hat on pt as he was cold, requested pt get face shaved as it is uncomfortable and tested new technology out. MOTOR HOTEL MANAGER assisted pt and daughter with a zoom call but it was later determined that facetime may be easier. Pt gets easily frustrated but it helps to remind him that it will work out/we will fix it. Plan: -Please continue to update daughter frequently as this has been an issue in the past (best time between 11-) -Pt will need brief assistance in starting a phone call/charging phone etc but everything is set upfrom there -Tentative PT/OT for 1:30 Thursday. Daughter will face time in to watch and learn his baseline. Daughter very tech thiago Office of Care Management Float/Weekend Mitochondrial Disorders Counselor LORENA Vieira Pager [phone] * Aamir John OCEAN CLAM BOAT CAPTAIN - 11/10/2020 10:07 AM EST Respiratory Therapy NIV Note NIV Settings: RA NIV Measurements: Resp: 18 SpO2: 96 % Laboratory: Lab Results Component Value Date/Time PHART 7.43 10/30/2020 03:19 PM [id number] 36 10/30/2020 03:19 PM PO2ART 64 (L) 10/30/2020 03:19 PM [id number] 23.4 10/30/2020 03:19 PM BEART -0.8 10/30/2020 [...] below. Electronically signed by: Lili Burgos MD, [facility] ([phone]), at 11/05/2020 11:58 AM Current Medications: Skin [...] Intake/Output Summary (Last 24 hours) at 11/10/2020 0941 Last data filed at 11/10/2020 0823 Gross [...] place, and time. Labs: Recent Labs 11/10/209911/09/2022411/08/20 013 WBC 6.8 6.7 9.2 HGB 10.2* 9.8* 9.9* HCT 31.5* 30.7* 29.8* PLATELET 358* 322 310 Recent Labs 11/10/209911/09/2022411/08/20 013 NA 137 135 136 K 4.6 4.7 [...] qHS Dysphagia - PEG, TF (held) - PELLETIZER OPERATOR 11/08: dysphagia soft, nectar thick liquids (once [...] 10/26 neurogenic bladder, PEG Consults (Please see senior professional services consultant notes): PT/OT, Ortho, Psych, PELLETIZER OPERATOR, ORTHO Dispo: IPR,CRC working on dispo plan Status: Floor Incidental Findings: - Nonspecific small lytic foci within the iliac bones. [] Incidental Findings Form Completed KAN Maldonado 11/10/2020 Trauma pager [phone] Attending Addendum I have seen and examined [...] Louie RN - 11/09/2020 5:28 PM EST RN-FRENCH TUTOR, Office of Care Management Saritha Louie RN,BSN, ACM Pager # [phone] e-DH reviewed. Patient discussed daily in interdisciplinary [...] help him. Luz has previously worked as SECURITIES TRADER and willing to learn his care. Ultimately [...] are and the discharge planning process at [facility]. ?? I reviewed the criteria for acute level of rehab with the patient.. ?? The patient/daughter have been provided a list of facilities within their preferred geographic area.. ?? The patient has requested referrals to: 1. [facility] Acute Rehabilitation and Sub-Acute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 Comment Spec In Lab Norberto Gonzalez MD HEMATOLOGY ORDERABLE S Performing Organization Address City/[facility]/ZIP Co de Phone Number [facility] [place] [address] * Phosphorus (11/15/2020 2:18 AM EST) Phosphorus 4.0 2.5 - 4.5 mg/dL [facility] Blood specimen (specimen) 11/15/2020 2:18 AM EST 11/15/2020 2:30 AM EST Narrative Resulting Agency Comment Spec In Lab Radha Bolden MD CHEMISTRY ORDERABLES Performing Organization Address City/[facility]/ZIP Co de Phone Number [facility] [place] [address] * Magnesium (11/15/2020 2:18 AM EST) Magnesium 0.77 0.69 - 1.07 mmol/L [facility] Blood specimen (specimen) 11/15/2020 2:18 AM EST 11/15/2020 2:30 AM EST Narrative Resulting Agency Comment Spec In Lab Radha Bolden MD CHEMISTRY ORDERABLES Performing Organization Address City/[facility]/ZIP Co de Phone Number [facility] [place] [address] * (ABNORMAL) Basic Metabolic Panel (non-fasting) (11/15/2020 2:18 AM EST) Glucose 112 65 - 199 mg/dL [facility] Comment:Diabetes: >=200 mg/d L plus symptoms Blood Urea Nitrogen 34(H) 10 - 20 mg/dL [facility] Creatinine 0.90 0.80 - 1.50 mg/dL [facility] Sodium 138 135 - 145 mmol/L [facility] Potassium 4.1 3.5 - 5.0 mmol/L [facility] Comment: Please note: ??Patients with WBC >100,000 may have falsely elevated Potassium levels. ??For accurate Potassium quantification in these patients send serum separator tube (gold top) for subsequent determinations. ??Contact the Clinical Chemistry Laboratory if there are any questions. Chloride 106 98 - 107 mmol/L [facility] Carbon Dioxide 20(L) 22 - 31 mmol/L [facility] Anion Gap 12 5 - 15 mmol/L [facility] Calcium 9.3 8.5 - 10.5 mg/dL [facility] Est Glomerular Filtration Rate 97 >=60 mL/min/1. 73 m?? [facility] Comment: This patient? s estimated glomerular [...] In Lab Radha Bolden MD CHEMISTRY ORDERABLES [facility] [place] [address] * (ABNORMAL) Differential, Automated (11/14/2020 1:12 AM EST) Neutrophil % 70.5 % [facility] Neutrophil Absolute 5.25 1.70 - 6.10 x10(3)/[facility] Lymph % 18.8 % [facility] Lymphocytes Abs 1.4 0.9 - 3.2 x10(3)/[facility] Monocyte % 6.8 % [facility] Monocyte Abs 0.5 0.3 - 0.9 x10(3)/[facility] Eos % 2.7 % [facility] Eosinophils Abs 0.2 0.0 - 0.4 x10(3)/[facility] Basophil % 0.4 % [facility] Baso Absolute 0.0 0.0 - 0.1 x10(3)/[facility] Immature Gran % 0.80 % [facility] Comment: Immature granulocytes(IG's)percentage and absolute count will include metamyelocytes, myelocytes, and promyelocytes. Blood smears from CBCs yielding IG's will be scanned manually for concordance. If this scan disagrees with the automated IG or if promyelocytes are noted, a manual differential will be performed. Immature Gran Absolute 0.06(H) 0.00 - 0.04 x10(3)/[facility] Blood specimen (specimen) 11/14/2020 1:12 AM EST 11/14/2020 1:31 AM EST Narrative Resulting Agency Comment Spec In Lab Norberto Gonzalez MD HEMATOLOGY ORDERABLE S [facility] [place] [address] * (ABNORMAL) Hemogram (11/14/2020 1:12 AM EST) Pathologist [facility] White Blood Cell 7.4 4.0 - 9.5 x10(3)/[facility] Red Blood Cell 3.39(L) 4.58 - 5.54 x10(6)/[facility] Hemoglobin 10.4(L) 13.7 - 16.5 gm/dL [facility] Hematocrit 31.6(L) 40.5 - 48.5 % [facility] Mean Cell Volume 93.2(H) 82.9 - 93.1 fL [facility] Mean Cell Hemoglobin 30.7 27.5 - 32.1 pg [facility] Mean Cell Hemoglobin Concentration 32.9 32.0 - 35.7 gm/dL [facility] Platelet 314 145 - 357 x10(3)/[facility] RDW Standard Deviation 42.7 36.0 - 45.0 [facility] RDW coefficient of variation 12.5 11.4 - 13.8 % [facility] Mean Platelet Volume 10.7 7.6 - 12.9 [facility] NRBC% auto 0.0 % [facility] NRBC Absolute 0.000 0.000 - 0.000 x10(3)/[facility] Blood specimen (specimen) 11/14/2020 1:12 AM EST 11/14/2020 1:31 AM EST Narrative Resulting Agency Comment Spec In Lab Norberto Gonzalez MD HEMATOLOGY ORDERABLE S [facility] [place] [address] * Phosphorus (11/14/2020 1:12 AM EST) Phosphorus 4.1 2.5 - 4.5 mg/dL [facility] Blood specimen (specimen) 11/14/2020 1:12 AM EST 11/14/2020 1:31 AM EST Narrative Resulting Agency Comment Spec In Lab Radha Bolden MD CHEMISTRY ORDERABLES Performing Organization Address City/[facility]/ZIP Co de Phone Number [facility] [place] [address] * Magnesium (11/14/2020 1:12 AM EST) Pathologist [facility] Magnesium 0.77 0.69 - 1.07 mmol/L [facility] Blood specimen (specimen) 11/14/2020 1:12 AM EST 11/14/2020 1:31 AM EST Narrative Resulting Agency Comment Spec In Lab Radha Bolden MD CHEMISTRY ORDERABLES Performing Organization Address [facility] Co de Phone Number [facility] [place] [address] * (ABNORMAL) Basic Metabolic Panel (non-fasting) (11/14/2020 1:12 AM EST) Pathologist [facility] Glucose 118 65 - 199 mg/dL [facility] Comment:Diabetes: >=200 mg/d L plus symptoms Blood Urea Nitrogen 38(H) 10 - 20 mg/dL [facility] Creatinine 0.85 0.80 - 1.50 mg/dL [facility] Sodium 138 135 - 145 mmol/L [facility] Potassium 4.1 3.5 - 5.0 mmol/L [facility] Comment: Please note: ??Patients with WBC >100,000 may have falsely elevated Potassium levels. ??For accurate Potassium quantification in these patients send serum separator tube (gold top) for subsequent determinations. ??Contact the Clinical Chemistry Laboratory if there are any questions. Chloride 109(H) 98 - 107 mmol/L [facility] Carbon Dioxide 19(L) 22 - 31 mmol/L [facility] Anion Gap 10 5 - 15 mmol/L [facility] Calcium 9.1 8.5 - 10.5 mg/dL [facility] Est Glomerular Filtration Rate 99 >=60 mL/min/1. 73 m?? [facility] Comment: This patient? s estimated glomerular [...] In Lab Radha Bolden MD CHEMISTRY ORDERABLES [facility] [place] [address] * (ABNORMAL) Differential, Automated (11/13/2020 3:58 AM EST) Neutrophil % 72.9 % [facility] Neutrophil Absolute 6.82(H) 1.70 - 6.10 x10(3)/mc L [facility] Lymph % 16.4 % [facility] Lymphocytes Abs 1.5 0.9 - 3.2 x10(3)/mc L [facility] Monocyte % 6.8 % [facility] Monocyte Abs 0.6 0.3 - 0.9 x10(3)/mc L [facility] Eos % 2.4 % [facility] Eosinophils Abs 0.2 0.0 - 0.4 x10(3)/mc L [facility] Basophil % 0.5 % [facility] Baso Absolute 0.0 0.0 - 0.1 x10(3)/mc L [facility] Immature Gran % 1.00 % [facility] Comment: Immature granulocytes(IG's)percentage and absolute count will include metamyelocytes, myelocytes, and promyelocytes. Blood smears from CBCs yielding IG's will be scanned manually for concordance. If this scan disagrees with the automated IG or if promyelocytes are noted, a manual differential will be performed. Immature Gran Absolute 0.09(H) 0.00 - 0.04 x10(3)/mc L [facility] Blood specimen (specimen) 11/13/2020 3:58 AM EST 11/13/2020 4:12 AM EST Narrative Resulting Agency Comment Spec In Lab Norberto Gonzalez MD HEMATOLOGY ORDERABLE S [facility] [place] [address] * (ABNORMAL) Hemogram (11/13/2020 3:58 AM EST) White Blood Cell 9.4 4.0 - 9.5 x10(3)/mc L [facility] Red Blood Cell 3.41(L) 4.58 - 5.54 x10(6)/mc L [facility] Hemoglobin 10.4(L) 13.7 - 16.5 gm/dL [facility] Hematocrit 31.7(L) 40.5 - 48.5 % [facility] Mean Cell Volume 93.0 82.9 - 93.1 fL [facility] Mean Cell Hemoglobin 30.5 27.5 - 32.1 pg [facility] Mean Cell Hemoglobin Concentration 32.8 32.0 - 35.7 gm/dL [facility] Platelet 330 145 - 357 x10(3)/mc L [facility] RDW Standard Deviation 41.9 36.0 - 45.0 fL [facility] RDW coefficient of variation 12.3 11.4 - 13.8 % [facility] Mean Platelet Volume 10.5 7.6 - 12.9 fL [facility] NRBC% auto 0.0 % [facility] NRBC Absolute 0.000 0.000 - 0.000 x10(3)/mc L [facility] Blood specimen (specimen) 11/13/2020 3:58 AM EST 11/13/2020 4:12 AM EST Narrative Resulting Agency Comment Spec In Lab Norberto Gonzalez MD HEMATOLOGY ORDERABLE S Performing Organization Address [facility]/ZIP Co de Phone Number [facility] [place] [address] * Phosphorus (11/13/2020 3:58 AM EST) Phosphorus 3.5 2.5 - 4.5 mg/dL [facility] Blood specimen (specimen) 11/13/2020 3:58 AM EST 11/13/2020 4:12 AM EST Narrative Resulting Agency Comment Spec In Lab Radha Bolden MD CHEMISTRY ORDERABLES Performing Organization Address [facility] Co de Phone Number [facility] [place] [address] * Magnesium (11/13/2020 3:58 AM EST) Magnesium 0.76 0.69 - 1.07 mmol/L [facility] Blood specimen (specimen) 11/13/2020 3:58 AM EST 11/13/2020 4:12 AM EST Narrative Resulting Agency Comment Spec In Lab Radha Bolden MD CHEMISTRY ORDERABLES Performing Organization Address [facility] [facility] Co de Phone Number [facility] [place] [address] * (ABNORMAL) Basic Metabolic Panel (non-fasting) (11/13/2020 3:58 AM EST) Glucose 109 65 - 199 mg/dL [facility] Comment:Diabetes: >=200 mg/d L plus symptoms Blood Urea Nitrogen 41(H) 10 - 20 mg/dL [facility] Creatinine 0.77(L) 0.80 - 1.50 mg/dL [facility] Sodium 139 135 - 145 mmol/L [facility] Potassium 4.2 3.5 - 5.0 mmol/L [facility] Comment: Please note: ??Patients with WBC >100,000 may have falsely elevated Potassium levels. ??For accurate Potassium quantification in these patients send serum separator tube (gold top) for subsequent determinations. ??Contact the Clinical Chemistry Laboratory if there are any questions. Chloride 110(H) 98 - 107 mmol/L [facility] Carbon Dioxide 20(L) 22 - 31 mmol/L [facility] Anion Gap 9 5 - 15 mmol/L [facility] Calcium 8.9 8.5 - 10.5 mg/dL [facility] Est Glomerular Filtration Rate 104 >=60 mL/min/1. 73 m?? [facility] Comment: This patient? s estimated glomerular [...] In Lab Radha Bolden MD CHEMISTRY ORDERABLES [facility] [place] [address] * (ABNORMAL) Differential, Automated (11/12/2020 2:40 AM EST) Neutrophil % 66.6 % [facility] Neutrophil Absolute 5.38 1.70 - 6.10 x10(3)/ L [facility] Lymph % 21.8 % [facility] Lymphocytes Abs 1.8 0.9 - 3.2 x10(3)/[facility] Monocyte % 6.9 % [facility] Monocyte Abs 0.6 0.3 - 0.9 x10(3)/[facility] Eos % 3.2 % [facility] Eosinophils Abs 0.3 0.0 - 0.4 x10(3)/[facility] Basophil % 0.6 % [facility] Baso Absolute 0.0 0.0 - 0.1 x10(3)/[facility] Immature Gran % 0.90 % [facility] Comment: Immature granulocytes(IG's)percentage and absolute count will include metamyelocytes, myelocytes, and promyelocytes. Blood smears from CBCs yielding IG's will be scanned manually for concordance. If this scan disagrees with the automated IG or if promyelocytes are noted, a manual differential will be performed. Immature Gran Absolute 0.07(H) 0.00 - 0.04 x10(3)/[facility] Blood specimen (specimen) 11/12/2020 2:40 AM EST 11/12/2020 2:47 AM EST Narrative Resulting Agency Comment Spec In Lab Norberto Gonzalez MD HEMATOLOGY ORDERABLE S [facility] [place] [address] * (ABNORMAL) Hemogram (11/12/2020 2:40 AM EST) White Blood Cell 8.1 4.0 - 9.5 x10(3)/[facility] Red Blood Cell 3.39(L) 4.58 - 5.54 x10(6)/[facility] Hemoglobin 10.4(L) 13.7 - 16.5 gm/dL [facility] Hematocrit 31.5(L) 40.5 - 48.5 % [facility] Mean Cell Volume 92.9 82.9 - 93.1 fL [facility] Mean Cell Hemoglobin 30.7 27.5 - 32.1 pg [facility] Mean Cell Hemoglobin Concentration 33.0 32.0 - 35.7 gm/dL [facility] Platelet 326 145 - 357 x10(3)/mc L [facility] RDW Standard Deviation 42.4 36.0 - 45.0 [facility] RDW coefficient of variation 12.4 11.4 - 13.8 % [facility] Mean Platelet Volume 10.5 7.6 - 12.9 [facility] NRBC% auto 0.0 % [facility] NRBC Absolute 0.000 0.000 - 0.000 x10(3)/mc L [facility] Blood specimen (specimen) 11/12/2020 2:40 AM EST 11/12/2020 2:47 AM EST Narrative Resulting Agency Comment Spec In Lab Norberto Gonzalez MD HEMATOLOGY ORDERABLE S Performing Organization Address City/[facility] Co de Phone Number [facility] [place] [address] * Phosphorus (11/12/2020 2:40 AM EST) Phosphorus 4.0 2.5 - 4.5 mg/dL [facility] Blood specimen (specimen) 11/12/2020 2:40 AM EST 11/12/2020 2:47 AM EST Narrative Resulting Agency Comment Spec In Lab Radha Bolden MD CHEMISTRY ORDERABLES Performing Organization Address City/[facility]/ZIP Co de Phone Number [facility] [place] [address] * Magnesium (11/12/2020 2:40 AM EST) Magnesium 0.81 0.69 - 1.07 mmol/L [facility] Blood specimen (specimen) 11/12/2020 2:40 AM EST 11/12/2020 2:47 AM EST Narrative Resulting Agency Comment Spec In Lab Radha Bolden MD CHEMISTRY ORDERABLES [facility] [place] [address] * (ABNORMAL) Basic Metabolic Panel (non-fasting) (11/12/2020 2:40 AM EST) Glucose 97 65 - 199 mg/dL [facility] Comment:Diabetes: >=200 mg/d L plus symptoms Blood Urea Nitrogen 38(H) 10 - 20 mg/dL [facility] Creatinine 0.81 0.80 - 1.50 mg/dL [facility] Sodium 139 135 - 145 mmol/L [facility] Potassium 4.4 3.5 - 5.0 mmol/L [facility] Comment: Please note: ??Patients with WBC >100,000 may have falsely elevated Potassium levels. ??For accurate Potassium quantification in these patients send serum separator tube (gold top) for subsequent determinations. ??Contact the Clinical Chemistry Laboratory if there are any questions. Chloride 108(H) 98 - 107 mmol/L [facility] Carbon Dioxide 21(L) 22 - 31 mmol/L [facility] Anion Gap 10 5 - 15 mmol/L [facility] Calcium 8.9 8.5 - 10.5 mg/dL [facility] Est Glomerular Filtration Rate 101 >=60 mL/min/1. 73 m?? [facility] Comment: This patient? s estimated glomerular [...] In Lab Radha Bolden MD CHEMISTRY ORDERABLES [facility] [place] [address] * (ABNORMAL) Differential, Automated (11/11/2020 4:15 AM EST) Neutrophil % 68.2 % [facility] Neutrophil Absolute 5.80 1.70 - 6.10 x10(3)/mc L [facility] Lymph % 18.1 % [facility] Lymphocytes Abs 1.5 0.9 - 3.2 x10(3)/mc L [facility] Monocyte % 8.4 % [facility] Monocyte Abs 0.7 0.3 - 0.9 x10(3)/mc L [facility] Eos % 3.8 % [facility] Eosinophils Abs 0.3 0.0 - 0.4 x10(3)/mc L [facility] Basophil % 0.6 % [facility] Baso Absolute 0.0 0.0 - 0.1 x10(3)/mc L [facility] Immature Gran % 0.90 % [facility] Comment: Immature granulocytes(IG's)percentage and absolute count will include metamyelocytes, myelocytes, and promyelocytes. Blood smears from CBCs yielding IG's will be scanned manually for concordance. If this scan disagrees with the automated IG or if promyelocytes are noted, a manual differential will be performed. Immature Gran Absolute 0.08(H) 0.00 - 0.04 x10(3)/mc L [facility] Blood specimen (specimen) 11/11/2020 4:15 AM EST 11/11/2020 4:37 AM EST Narrative Resulting Agency Comment Spec In Lab Norberto Gonzalez MD HEMATOLOGY ORDERABLE S [facility] [place] [address] * (ABNORMAL) Hemogram (11/11/2020 4:15 AM EST) White Blood Cell 8.5 4.0 - 9.5 x10(3)/ L [facility] Red Blood Cell 3.34(L) 4.58 - 5.54 x10(6)/[facility] Hemoglobin 10.2(L) 13.7 - 16.5 gm/dL [facility] Hematocrit 31.3(L) 40.5 - 48.5 % [facility] Mean Cell Volume 93.7(H) 82.9 - 93.1 [facility] Mean Cell Hemoglobin 30.5 27.5 - 32.1 pg [facility] Mean Cell Hemoglobin Concentration 32.6 32.0 - 35.7 gm/dL [facility] Platelet 329 145 - 357 x10(3)/ L [facility] RDW Standard Deviation 42.5 36.0 - 45.0 [facility] RDW coefficient of variation 12.4 11.4 - 13.8 % [facility] Mean Platelet Volume 10.3 7.6 - 12.9 [facility] NRBC% auto 0.0 % [facility] NRBC Absolute 0.000 0.000 - 0.000 x10(3)/ L [facility] Blood specimen (specimen) 11/11/2020 4:15 AM EST 11/11/2020 4:37 AM EST Narrative Resulting Agency Comment Spec In Lab Norberto Gonzalez MD HEMATOLOGY ORDERABLE S Performing Organization Address City/[facility]/ZIP Co de Phone Number [facility] [place] [address] * Phosphorus (11/11/2020 4:15 AM EST) Phosphorus 4.4 2.5 - 4.5 mg/dL [facility] Blood specimen (specimen) 11/11/2020 4:15 AM EST 11/11/2020 4:37 AM EST Narrative Resulting Agency Comment Spec In Lab Radha Bolden MD CHEMISTRY ORDERABLES Performing Organization Address [facility] Co de Phone Number [facility] [place] [address] * Magnesium (11/11/2020 4:15 AM EST) Magnesium 0.82 0.69 - 1.07 mmol/L [facility] Blood specimen (specimen) 11/11/2020 4:15 AM EST 11/11/2020 4:37 AM EST Narrative Resulting Agency Comment Spec In Lab Radha Bolden MD CHEMISTRY ORDERABLES Performing Organization Address [facility]/ZIP Co de Phone Number [facility] [place] [address] * (ABNORMAL) Basic Metabolic Panel (non-fasting) (11/11/2020 4:15 AM EST) Glucose 96 65 - 199 mg/dL [facility] Comment:Diabetes: >=200 mg/d L plus symptoms Blood Urea Nitrogen 38(H) 10 - 20 mg/dL [facility] Creatinine 0.79(L) 0.80 - 1.50 mg/dL [facility] Sodium 138 135 - 145 mmol/L [facility] Potassium 4.5 3.5 - 5.0 mmol/L [facility] Comment: Please note: ??Patients with WBC >100,000 may have falsely elevated Potassium levels. ??For accurate Potassium quantification in these patients send serum separator tube (gold top) for subsequent determinations. ??Contact the Clinical Chemistry Laboratory if there are any questions. Chloride 107 98 - 107 mmol/L [facility] Carbon Dioxide 21(L) 22 - 31 mmol/L [facility] Anion Gap 10 5 - 15 mmol/L [facility] Calcium 8.8 8.5 - 10.5 mg/dL [facility] Est Glomerular Filtration Rate 103 >=60 mL/min/1. 73 m?? [facility] Comment: This patient? s estimated glomerular [...] In Lab Radha Bolden MD CHEMISTRY ORDERABLES [facility] [place] [address] * (ABNORMAL) Differential, Automated (11/10/2020 1:00 AM EST) Neutrophil % 65.3 % [facility] Neutrophil Absolute 4.43 1.70 - 6.10 x10(3)/mc L [facility] Lymph % 17.6 % [facility] Lymphocytes Abs 1.2 0.9 - 3.2 x10(3)/mc L [facility] Monocyte % 10.2 % [facility] Monocyte Abs 0.7 0.3 - 0.9 x10(3)/[facility] Eos % 5.0 % [facility] Eosinophils Abs 0.3 0.0 - 0.4 x10(3)/[facility] Basophil % 0.6 % [facility] Baso Absolute 0.0 0.0 - 0.1 x10(3)/[facility] Immature Gran % 1.30 % [facility] Comment: Immature granulocytes(IG's)percentage and absolute count will include metamyelocytes, myelocytes, and promyelocytes. Blood smears from CBCs yielding IG's will be scanned manually for concordance. If this scan disagrees with the automated IG or if promyelocytes are noted, a manual differential will be performed. Immature Gran Absolute 0.09(H) 0.00 - 0.04 x10(3)/[facility] Blood specimen (specimen) 11/10/2020 1:00 AM EST 11/10/2020 1:32 AM EST Narrative Resulting Agency Comment Spec In Lab Norberto Gonzalez MD HEMATOLOGY ORDERABLE S [facility] [place] [address] * (ABNORMAL) Hemogram (11/10/2020 1:00 AM EST) White Blood Cell 6.8 4.0 - 9.5 x10(3)/[facility] Red Blood Cell 3.38(L) 4.58 - 5.54 x10(6)/[facility] Hemoglobin 10.2(L) 13.7 - 16.5 gm/dL [facility] Hematocrit 31.5(L) 40.5 - 48.5 % [facility] Mean Cell Volume 93.2(H) 82.9 - 93.1 fL [facility] Mean Cell Hemoglobin 30.2 27.5 - 32.1 pg [facility] Mean Cell Hemoglobin Concentration 32.4 32.0 - 35.7 gm/dL [facility] Platelet 358(H) 145 - 357 x10(3)/mc L [facility] RDW Standard Deviation 42.3 36.0 - 45.0 [facility] RDW coefficient of variation 12.3 11.4 - 13.8 % [facility] Mean Platelet Volume 10.6 7.6 - 12.9 [facility] NRBC% auto 0.0 % [facility] NRBC Absolute 0.000 0.000 - 0.000 x10(3)/mc L [facility] Blood specimen (specimen) 11/10/2020 1:00 AM EST 11/10/2020 1:32 AM EST Narrative Resulting Agency Comment Spec In Lab Norberto Gonzalez MD HEMATOLOGY ORDERABLE S [facility] [place] [address] * Phosphorus (11/10/2020 1:00 AM EST) Phosphorus 3.2 2.5 - 4.5 mg/dL [facility] Blood specimen (specimen) 11/10/2020 1:00 AM EST 11/10/2020 1:32 AM EST Narrative Resulting Agency Comment Spec In Lab Radha Bolden MD CHEMISTRY ORDERABLES [facility] [place] [address] * Magnesium (11/10/2020 1:00 AM EST) Magnesium 0.87 0.69 - 1.07 mmol/L [facility] Blood specimen (specimen) 11/10/2020 1:00 AM EST 11/10/2020 1:32 AM EST Narrative Resulting Agency Comment Spec In Lab Radha Bolden MD CHEMISTRY ORDERABLES [facility] [place] [address] * (ABNORMAL) Basic Metabolic Panel (non-fasting) (11/10/2020 1:00 AM EST) Glucose 105 65 - 199 mg/dL [facility] Comment:Diabetes: >=200 mg/d L plus symptoms Blood Urea Nitrogen 36(H) 10 - 20 mg/dL [facility] Creatinine 0.91 0.80 - 1.50 mg/dL [facility] Sodium 137 135 - 145 mmol/L [facility] Potassium 4.6 3.5 - 5.0 mmol/L [facility] Comment: Please note: ??Patients with WBC >100,000 may have falsely elevated Potassium levels. ??For accurate Potassium quantification in these patients send serum separator tube (gold top) for subsequent determinations. ??Contact the Clinical Chemistry Laboratory if there are any questions. Chloride 103 98 - 107 mmol/L [facility] Carbon Dioxide 23 22 - 31 mmol/L [facility] Anion Gap 11 5 - 15 mmol/L [facility] Calcium 8.9 8.5 - 10.5 mg/dL [facility] Est Glomerular Filtration Rate 96 >=60 mL/min/1. 73 m?? [facility] Comment: This patient? s estimated glomerular [...] In Lab Radha Bolden MD CHEMISTRY ORDERABLES [facility] [place] [address] * XR Cervical Spine 2 or 3 [...] ? Electronically signed by: Crys Joaquin MD, [facility] ([phone]), at 11/09/2020 3:29 PM Narrative 11/09/2020 3:29 [...] 2:25 AM EST) Neutrophil % 66.7 % [facility] Neutrophil Absolute 4.46 1.70 - 6.10 x10(3)/mc L [facility] Lymph % 15.2 % [facility] Lymphocytes Abs 1.0 0.9 - 3.2 x10(3)/mc L [facility] Monocyte % 11.8 % [facility] Monocyte Abs 0.8 0.3 - 0.9 x10(3)/mc L [facility] Eos % 4.8 % [facility] Eosinophils Abs 0.3 0.0 - 0.4 x10(3)/[facility] Basophil % 0.6 % [facility] Baso Absolute 0.0 0.0 - 0.1 x10(3)/[facility] Immature Gran % 0.90 % [facility] Comment: Immature granulocytes(IG's)percentage and absolute count will include metamyelocytes, myelocytes, and promyelocytes. Blood smears from CBCs yielding IG's will be scanned manually for concordance. If this scan disagrees with the automated IG or if promyelocytes are noted, a manual differential will be performed. Immature Gran Absolute 0.06(H) 0.00 - 0.04 x10(3)/[facility] Blood specimen (specimen) 11/09/2020 2:25 AM EST 11/09/2020 2:45 AM EST Narrative Resulting Agency Comment Spec In Lab Norberto Gonzalez MD HEMATOLOGY ORDERABLE S [facility] [place] [address] * (ABNORMAL) Hemogram (11/09/2020 2:25 AM EST) White Blood Cell 6.7 4.0 - 9.5 x10(3)/[facility] Red Blood Cell 3.27(L) 4.58 - 5.54 x10(6)/[facility] Hemoglobin 9.8(L) 13.7 - 16.5 gm/dL [facility] Hematocrit 30.7(L) 40.5 - 48.5 % [facility] Mean Cell Volume 93.9(H) 82.9 - 93.1 fL [facility] Mean Cell Hemoglobin 30.0 27.5 - 32.1 pg [facility] Mean Cell Hemoglobin Concentration 31.9(L) 32.0 - 35.7 gm/dL [facility] Platelet 322 145 - 357 x10(3)/mc L [facility] RDW Standard Deviation 42.5 36.0 - 45.0 fL [facility] RDW coefficient of variation 12.4 11.4 - 13.8 % [facility] Mean Platelet Volume 10.5 7.6 - 12.9 fL [facility] NRBC% auto 0.0 % [facility] NRBC Absolute 0.000 0.000 - 0.000 x10(3)/mc L [facility] Blood specimen (specimen) 11/09/2020 2:25 AM EST 11/09/2020 2:45 AM EST Narrative Resulting Agency Comment Spec In Lab Norberto Gonzalez MD HEMATOLOGY ORDERABLE S Performing Organization Address [facility] [place] [address] * Phosphorus (11/09/2020 2:25 AM EST) Phosphorus 4.0 2.5 - 4.5 mg/dL [facility] Blood specimen (specimen) 11/09/2020 2:25 AM EST 11/09/2020 2:45 AM EST Narrative Resulting Agency Comment Spec In Lab Radha Bolden MD CHEMISTRY ORDERABLES Performing Organization Address [facility] Co de Phone Number [facility] [place] [address] * Magnesium (11/09/2020 2:25 AM EST) Magnesium 0.93 0.69 - 1.07 mmol/L [facility] Blood specimen (specimen) 11/09/2020 2:25 AM EST 11/09/2020 2:45 AM EST Narrative Resulting Agency Comment Spec In Lab Radha Bolden MD CHEMISTRY ORDERABLES Performing Organization Address [facility] Co de Phone Number [facility] [place] [address] * (ABNORMAL) Basic Metabolic Panel (non-fasting) (11/09/2020 2:25 AM EST) Glucose 121 65 - 199 mg/dL [facility] Comment:Diabetes: >=200 mg/d L plus symptoms Blood Urea Nitrogen 33(H) 10 - 20 mg/dL [facility] Creatinine 0.79(L) 0.80 - 1.50 mg/dL [facility] Sodium 135 135 - 145 mmol/L [facility] Potassium 4.7 3.5 - 5.0 mmol/L [facility] Comment: Please note: ??Patients with WBC >100,000 may have falsely elevated Potassium levels. ??For accurate Potassium quantification in these patients send serum separator tube (gold top) for subsequent determinations. ??Contact the Clinical Chemistry Laboratory if there are any questions. Chloride 102 98 - 107 mmol/L [facility] Carbon Dioxide 23 22 - 31 mmol/L [facility] Anion Gap 10 5 - 15 mmol/L [facility] Calcium 8.7 8.5 - 10.5 mg/dL [facility] Est Glomerular Filtration Rate 103 >=60 mL/min/1. 73 m?? [facility] Comment: This patient? s estimated glomerular [...] In Lab Radha Bolden MD CHEMISTRY ORDERABLES [facility] [place] [address] * CT Abdomen & Pelvis w Contrast (11/08/2020 10:42 AM EST) Anatomical Region Laterality Modality Abdomen, Pelvis Computed Tomogra phy Impressions 11/08/2020 11:04 AM EST 1. ??No signs of small bowel obstruction with the small bowel decompressed. There is a mild to moderate distention of the colon with gas, fluid, and stool which could represent ileus/early Nikole. 2. ??There is a trace amount of [...] please contact the number below. ? Narrative 11/08/2020 11:04 AM EST EXAMINATION: CT [...] below. Electronically signed by: Blayne Ferrara MD, [facility]([phone]), at 11/08/2020 11:04 AM Radha Bolden MD IMG CT ORDERABLES * (ABNORMAL) Differential, Automated (11/08/2020 1:35 AM EST) Neutrophil % 75.7 % [facility] Neutrophil Absolute 6.99(H) 1.70 - 6.10 x10(3)/mc L [facility] Lymph % 11.9 % [facility] Lymphocytes Abs 1.1 0.9 - 3.2 x10(3)/mc L [facility] Monocyte % 9.3 % [facility] Monocyte Abs 0.9 0.3 - 0.9 x10(3)/[facility] Eos % 2.2 % [facility] Eosinophils Abs 0.2 0.0 - 0.4 x10(3)/[facility] Basophil % 0.3 % [facility] Baso Absolute 0.0 0.0 - 0.1 x10(3)/[facility] LABORATORY Immature Gran % 0.60 % [facility]OR[facility]ORY Comment: Immature granulocytes(IG's)percentage and absolute count will include metamyelocytes, myelocytes, and promyelocytes. Blood smears from CBCs yielding IG's will be scanned manually for concordance. If this scan disagrees with the automated IG or if promyelocytes are noted, a manual differential will be performed. Immature Gran Absolute 0.06(H) 0.00 - 0.04 x10(3)/[facility] LABORATORY Blood specimen (specimen) 11/08/2020 1:35 AM EST 11/08/2020 1:56 AM EST Narrative Resulting Agency Comment Spec In Lab Norberto Gonzalez MD HEMATOLOGY ORDERABLE S Performing Organization Address City/State/[facility] Co de Phone Number [facility] [place] [address] * (ABNORMAL) Hemogram (11/08/2020 1:35 AM EST) White Blood Cell 9.2 4.0 - 9.5 x10(3)/[facility] LABORATORY Red Blood Cell 3.24(L) 4.58 - 5.54 x10(6)/[facility] LABORATORY Hemoglobin 9.9(L) 13.7 - 16.5 gm/dL [facility] LABORATORY Hematocrit 29.8(L) 40.5 - 48.5 % [facility] Mean Cell Volume 92.0 82.9 - 93.1 fL [facility] Mean Cell Hemoglobin 30.6 27.5 - 32.1 pg [facility] Mean Cell Hemoglobin Concentration 33.2 32.0 - 35.7 gm/dL [facility] Platelet 310 145 - 357 x10(3)/mc L [facility] RDW Standard Deviation 41.0 36.0 - 45.0 fL [facility] RDW coefficient of variation 12.1 11.4 - 13.8 % [facility] Mean Platelet Volume 10.6 7.6 - 12.9 fL [facility] LAB[facility]ORY NRBC% auto 0.0 % [facility] LABORATORY NRBC Absolute 0.000 0.000 - 0.000 x10(3)/mc L [facility] LABOR[facility]ORY Blood specimen (specimen) 11/08/2020 1:35 AM EST 11/08/2020 1:56 AM EST Narrative Resulting Agency Comment Spec In Lab Norberto Gonzalez MD HEMATOLOGY ORDERABLE S [facility] [place] [address] * (ABNORMAL) Phosphorus (11/08/2020 1:35 AM EST) Phosphorus 4.8(H) 2.5 - 4.5 mg/dL [facility] LABOR[facility]ORY Blood specimen (specimen) 11/08/2020 1:35 AM EST 11/08/2020 1:55 AM EST Narrative Resulting Agency Comment Spec In Lab Radha Bolden MD CHEMISTRY ORDERABLES [facility] [place] [address] * Magnesium (11/08/2020 1:35 AM EST) Magnesium 0.94 0.69 - 1.07 mmol/L [facility] LABOR[facility]ORY Blood specimen (specimen) 11/08/2020 1:35 AM EST 11/08/2020 1:55 AM EST Narrative Resulting Agency Comment Spec In Lab Radha Bolden MD CHEMISTRY ORDERABLES [facility] [place] [address] * (ABNORMAL) Basic Metabolic Panel (non-fasting) (11/08/2020 1:35 AM EST) Glucose 123 65 - 199 mg/dL [facility] Comment:Diabetes: >=200 mg/d L plus symptoms Blood Urea Nitrogen 30(H) 10 - 20 mg/dL [facility] Creatinine 0.83 0.80 - 1.50 mg/dL [facility] Sodium 136 135 - 145 mmol/L [facility] Potassium 4.7 3.5 - 5.0 mmol/L [facility] Comment: Please note: ??Patients with WBC >100,000 may have falsely elevated Potassium levels. ??For accurate Potassium quantification in these patients send serum separator tube (gold top) for subsequent determinations. ??Contact the Clinical Chemistry Laboratory if there are any questions. Chloride 99 98 - 107 mmol/L [facility]ORY Carbon Dioxide 27 22 - 31 mmol/L [facility] Anion Gap 10 5 - 15 mmol/L [facility] Calcium 8.6 8.5 - 10.5 mg/dL [facility] Est Glomerular Filtration Rate 100 >=60 mL/min/1. 73 m?? [facility] Comment: This patient? s estimated glomerular [...] In Lab Radha Bolden MD CHEMISTRY ORDERABLES [facility] [place] [address] * XR Abdomen 1 view (Generic) (11/07/2020 [...] ? Electronically signed by: Usha Liriano MD, [facility] ([phone]), at 11/07/2020 11:41 AM Narrative 11/07/2020 11:41 [...] below. Electronically signed by: Usha Liriano MD, [facility]([phone]), at 11/07/2020 11:41 AM Radha Bolden MD IMG DX ORDERABLES * EKG 12 Lead (11/06/2020 1:04 PM EST) Ventricular rate 64 BPM MUSE SYSTEM Atrial Rate 64 BPM MUSE SYSTEM P-R Interval 138 ms MUSE SYSTEM QRS Duration 98 ms MUSE SYSTEM Q-T Interval 398 ms MUSE SYSTEM QTC Calculated (Bezet) 410 ms MUSE SYSTEM Calculated P Jewett 71 degrees MUSE SYSTEM Calculated R Jewett 64 degrees MUSE SYSTEM Calculated T Jewett 19 degrees MUSE SYSTEM INTERPRETATION Normal sinus rhythm Normal ECG No previous ECGs available Confirmed by Monica Staley ([id number]) on 11/06/2020 1:52:38 PM MUSE SYSTEM 11/06/2020 1:04 PM EST 11/06/2020 1:52 PM EST Radha Bolden MD ECG ORDERABLES MUSE SYSTEM * (ABNORMAL) Differential, Automated (11/06/2020 4:40 AM EST) Pathologist [facility] Neutrophil % 77.4 % [facility] LABORATORY Neutrophil Absolute 8.71(H) 1.70 - 6.10 x10(3)/ L [facility] LABORATORY Lymph % 11.8 % [facility] Lymphocytes Abs 1.3 0.9 - 3.2 x10(3)/ L [facility] LABOR[facility]ORY Monocyte % 8.8 % [facility] LABOR[facility] Monocyte Abs 1.0(H) 0.3 - 0.9 x10(3)/[facility] LABORATORY Eos % 1.3 % [facility] LABORATORY Eosinophils Abs 0.2 0.0 - 0.4 x10(3)/[facility] LABORATORY Basophil % 0.3 % [facility] LABORAT[facility] Baso Absolute 0.0 0.0 - 0.1 x10(3)/[facility] LABORATORY Immature Gran % 0.40 % [facility]ORY Comment: Immature granulocytes(IG's)percentage and absolute count will include metamyelocytes, myelocytes, and promyelocytes. Blood smears from CBCs yielding IG's will be scanned manually for concordance. If this scan disagrees with the automated IG or if promyelocytes are noted, a manual differential will be performed. Immature Gran Absolute 0.05(H) 0.00 - 0.04 x10(3)/[facility] LABORATORY Blood specimen (specimen) 11/06/2020 4:40 AM EST 11/06/2020 4:45 AM EST Narrative Resulting Agency Comment Spec In Lab Norberto Gonzalez MD HEMATOLOGY ORDERABLE S [facility] [place] [address] * (ABNORMAL) Hemogram (11/06/2020 4:40 AM EST) White Blood Cell 11.3(H) 4.0 - 9.5 x10(3)/[facility] LABORATORY Red Blood Cell 3.25(L) 4.58 - 5.54 x10(6)/[facility] LABORATORY Hemoglobin 10.0(L) 13.7 - 16.5 gm/dL [facility] LABORATORY Hematocrit 30.2(L) 40.5 - 48.5 % [facility] Mean Cell Volume 92.9 82.9 - 93.1 fL [facility] Mean Cell Hemoglobin 30.8 27.5 - 32.1 pg [facility] Mean Cell Hemoglobin Concentration 33.1 32.0 - 35.7 gm/dL [facility]OR[facility] Platelet 255 145 - 357 x10(3)/mc L [facility]OR[facility] RDW Standard Deviation 41.5 36.0 - 45.0 fL [facility] RDW coefficient of variation 12.1 11.4 - 13.8 % [facility] LABOR[facility] Mean Platelet Volume 10.5 7.6 - 12.9 [facility] LABORATORY NRBC% auto 0.0 % [facility]ORAT[facility] NRBC Absolute 0.000 0.000 - 0.000 x10(3)/mc L [facility] LABORATORY Blood specimen (specimen) 11/06/2020 4:40 AM EST 11/06/2020 4:45 AM EST Narrative Resulting Agency Comment Spec In Lab Norberto Gonzalez MD HEMATOLOGY ORDERABLE S Performing Organization Address City/[facility]/ZIP Co de Phone Number [facility] [place] [address] * Phosphorus (11/06/2020 4:40 AM EST) Phosphorus 3.9 2.5 - 4.5 mg/dL [facility] Blood specimen (specimen) 11/06/2020 4:40 AM EST 11/06/2020 4:45 AM EST Narrative Resulting Agency Comment Spec In Lab Radha Bolden MD CHEMISTRY ORDERABLES Performing Organization Address City/[facility]/ZIP Co de Phone Number [facility] [place] [address] * Magnesium (11/06/2020 4:40 AM EST) Magnesium 0.86 0.69 - 1.07 mmol/L [facility] Blood specimen (specimen) 11/06/2020 4:40 AM EST 11/06/2020 4:45 AM EST Narrative Resulting Agency Comment Spec In Lab Radha Bolden MD CHEMISTRY ORDERABLES [facility] [place] [address] * (ABNORMAL) Basic Metabolic Panel (non-fasting) (11/06/2020 4:40 AM EST) Glucose 106 65 - 199 mg/dL [facility] Comment:Diabetes: >=200 mg/d L plus symptoms Blood Urea Nitrogen 25(H) 10 - 20 mg/dL [facility] Creatinine 0.75(L) 0.80 - 1.50 mg/dL [facility] Sodium 134(L) 135 - 145 mmol/L [facility] Potassium 4.6 3.5 - 5.0 mmol/L [facility] Comment: Please note: ??Patients with WBC >100,000 may have falsely elevated Potassium levels. ??For accurate Potassium quantification in these patients send serum separator tube (gold top) for subsequent determinations. ??Contact the Clinical Chemistry Laboratory if there are any questions. Chloride 101 98 - 107 mmol/L [facility] Carbon Dioxide 25 22 - 31 mmol/L [facility] Anion Gap 8 5 - 15 mmol/L [facility] Calcium 8.2(L) 8.5 - 10.5 mg/dL [facility] Est Glomerular Filtration Rate 105 >=60 mL/min/1. 73 m?? [facility] Comment: This patient? s estimated glomerular [...] In Lab Radha Bolden MD CHEMISTRY ORDERABLES [facility] [place] [address] * XR Chest One View (11/05/2020 11:54 [...] please contact the number below. Robyn Baker APRN IMG DX ORDERABLES * (ABNORMAL) Differential, Automated (11/05/2020 4:12 AM EST) Neutrophil % 72.8 % [facility] Neutrophil Absolute 6.97(H) 1.70 - 6.10 x10(3)/mc L [facility] Lymph % 14.7 % [facility] Lymphocytes Abs 1.4 0.9 - 3.2 x10(3)/mc L [facility] Monocyte % 9.8 % [facility] Monocyte Abs 0.9 0.3 - 0.9 x10(3)/mc L [facility] Eos % 1.9 % [facility] Eosinophils Abs 0.2 0.0 - 0.4 x10(3)/mc L [facility] Basophil % 0.2 % [facility] Baso Absolute 0.0 0.0 - 0.1 x10(3)/mc L [facility]ORY Immature Gran % 0.60 % [facility] Comment: Immature granulocytes(IG's)percentage and absolute count will include metamyelocytes, myelocytes, and promyelocytes. Blood smears from CBCs yielding IG's will be scanned manually for concordance. If this scan disagrees with the automated IG or if promyelocytes are noted, a manual differential will be performed. Immature Gran Absolute 0.06(H) 0.00 - 0.04 x10(3)/mc L [facility] Blood specimen (specimen) 11/05/2020 4:12 AM EST 11/05/2020 4:18 AM EST Narrative Resulting Agency Comment Spec In Lab Noble Rodriguez MD HEMATOLOGY ORDERABLE S Performing Organization Address City/State/[facility] Co de Phone Number [facility] [place] [address] * (ABNORMAL) Hemogram (11/05/2020 4:12 AM EST) White Blood Cell 9.6(H) 4.0 - 9.5 x10(3)/mc L [facility] Red Blood Cell 3.41(L) 4.58 - 5.54 x10(6)/mc L [facility] Hemoglobin 10.5(L) 13.7 - 16.5 gm/dL [facility] Hematocrit 30.9(L) 40.5 - 48.5 % [facility] Mean Cell Volume 90.6 82.9 - 93.1 fL [facility] Mean Cell Hemoglobin 30.8 27.5 - 32.1 pg [facility] Mean Cell Hemoglobin Concentration 34.0 32.0 - 35.7 gm/dL [facility] Platelet 262 145 - 357 x10(3)/mc L [facility] RDW Standard Deviation 40.6 36.0 - 45.0 fL [facility] RDW coefficient of variation 12.4 11.4 - 13.8 % [facility] Mean Platelet Volume 10.5 7.6 - 12.9 fL [facility] NRBC% auto 0.0 % [facility] NRBC Absolute 0.000 0.000 - 0.000 x10(3)/mc L [facility] Blood specimen (specimen) 11/05/2020 4:12 AM EST 11/05/2020 4:18 AM EST Narrative Resulting Agency Comment Spec In Lab Noble Rodriguez MD HEMATOLOGY ORDERABLE S Performing Organization Address City/[facility]/ZIP Co de Phone Number [facility] [place] [address] * Phosphorus (11/05/2020 4:12 AM EST) Phosphorus 3.1 2.5 - 4.5 mg/dL [facility] Blood specimen (specimen) 11/05/2020 4:12 AM EST 11/05/2020 4:18 AM EST Narrative Resulting Agency Comment Spec In Lab Radha Bolden MD CHEMISTRY ORDERABLES Performing Organization Address City/[facility] Co de Phone Number [facility] [place] [address] * Magnesium (11/05/2020 4:12 AM EST) Magnesium 0.76 0.69 - 1.07 mmol/L [facility] Blood specimen (specimen) 11/05/2020 4:12 AM EST 11/05/2020 4:18 AM EST Narrative Resulting Agency Comment Spec In Lab Radha Bolden MD CHEMISTRY ORDERABLES Performing Organization Address City/[facility]/ZIP Co de Phone Number [facility] [place] [address] * (ABNORMAL) Basic Metabolic Panel (non-fasting) (11/05/2020 4:12 AM EST) Glucose 102 65 - 199 mg/dL [facility] Comment:Diabetes: >=200 mg/d L plus symptoms Blood Urea Nitrogen 18 10 - 20 mg/dL [facility] Creatinine 0.75(L) 0.80 - 1.50 mg/dL [facility] Sodium 134(L) 135 - 145 mmol/L [facility] Potassium 4.3 3.5 - 5.0 mmol/L [facility] Comment: Please note: ??Patients with WBC >100,000 may have falsely elevated Potassium levels. ??For accurate Potassium quantification in these patients send serum separator tube (gold top) for subsequent determinations. ??Contact the Clinical Chemistry Laboratory if there are any questions. Chloride 102 98 - 107 mmol/L [facility] Carbon Dioxide 23 22 - 31 mmol/L [facility] Anion Gap 9 5 - 15 mmol/L [facility] Calcium 8.2(L) 8.5 - 10.5 mg/dL [facility] Est Glomerular Filtration Rate 105 >=60 mL/min/1. 73 m?? [facility] Comment: This patient? s estimated glomerular [...] In Lab Radha Bolden MD CHEMISTRY ORDERABLES [facility] [place] [address] * SCAN DOC: IMPLANTABLE DEVICES (11/05/2020 12:00 AM EST) Narrative 11/05/2020 12:00 AM EST Ordered by an unspecified provider. Scanning Provider MEDIA MGR SCAN EXT O RDR/RSLT * Differential, Automated (11/04/2020 2:30 AM EST) Neutrophil % 72.7 % [facility] Neutrophil Absolute 5.18 1.70 - 6.10 x10(3)/[facility] LABORATORY Lymph % 13.0 % [facility] Lymphocytes Abs 0.9 0.9 - 3.2 x10(3)/[facility] LABORATORY Monocyte % 10.2 % [facility] Monocyte Abs 0.7 0.3 - 0.9 x10(3)/[facility] LABORATORY Eos % 3.4 % [facility] Eosinophils Abs 0.2 0.0 - 0.4 x10(3)/[facility] LABORATORY Basophil % 0.3 % [facility] Baso Absolute 0.0 0.0 - 0.1 x10(3)/[facility] LABORATORY Immature Gran % 0.40 % [facility] Comment: Immature granulocytes(IG's)percentage and absolute count will include metamyelocytes, myelocytes, and promyelocytes. Blood smears from CBCs yielding IG's will be scanned manually for concordance. If this scan disagrees with the automated IG or if promyelocytes are noted, a manual differential will be performed. Immature Gran Absolute 0.03 0.00 - 0.04 x10(3)/[facility] LABORATORY Blood specimen (specimen) 11/04/2020 2:30 AM EST 11/04/2020 2:37 AM EST Narrative Resulting Agency Comment Spec In Lab Noble Rodriguez MD HEMATOLOGY ORDERABLE S [facility] [place] [address] * (ABNORMAL) Hemogram (11/04/2020 2:30 AM EST) [facility] White Blood Cell 7.1 4.0 - 9.5 x10(3)/ L [facility] Red Blood Cell 3.37(L) 4.58 - 5.54 x10(6)/ L [facility] Hemoglobin 10.2(L) 13.7 - 16.5 gm/dL [facility] Hematocrit 30.5(L) 40.5 - 48.5 % [facility] Mean Cell Volume 90.5 82.9 - 93.1 fL [facility] Mean Cell Hemoglobin 30.3 27.5 - 32.1 pg [facility] Mean Cell Hemoglobin Concentration 33.4 32.0 - 35.7 gm/dL [facility] Platelet 234 145 - 357 x10(3)/[facility] LABORATORY RDW Standard Deviation 40.3 36.0 - 45.0 [facility] LABORATORY RDW coefficient of variation 12.1 11.4 - 13.8 % [facility] Mean Platelet Volume 10.6 7.6 - 12.9 fL [facility] NRBC% auto 0.0 % [facility] NRBC Absolute 0.000 0.000 - 0.000 x10(3)/[facility] LABORATORY Blood specimen (specimen) 11/04/2020 2:30 AM EST 11/04/2020 2:37 AM EST Narrative Resulting Agency Comment Spec In Lab Noble Rodriguez MD HEMATOLOGY ORDERABLE S [facility] [place] [address] * Phosphorus (11/04/2020 2:30 AM EST) Pathologist [facility] Phosphorus 2.7 2.5 - 4.5 mg/dL [facility] Blood specimen (specimen) 11/04/2020 2:30 AM EST 11/04/2020 2:37 AM EST Narrative Resulting Agency Comment Spec In Lab Radha Bolden MD CHEMISTRY ORDERABLES Performing Organization Address [facility] Co de Phone Number [facility] [place] [address] * Magnesium (11/04/2020 2:30 AM EST) Pathologist [facility] Magnesium 0.78 0.69 - 1.07 mmol/L [facility] Blood specimen (specimen) 11/04/2020 2:30 AM EST 11/04/2020 2:37 AM EST Narrative Resulting Agency Comment Spec In Lab Radha Bolden MD CHEMISTRY ORDERABLES Performing Organization Address [facility] Co de Phone Number [facility] [place] [address] * (ABNORMAL) Basic Metabolic Panel (non-fasting) (11/04/2020 2:30 AM EST) Pathologist [facility] Glucose 137 65 - 199 mg/dL [facility] Comment:Diabetes: >=200 mg/d L plus symptoms Blood Urea Nitrogen 20 10 - 20 mg/dL [facility] Creatinine 0.72(L) 0.80 - 1.50 mg/dL [facility] Sodium 137 135 - 145 mmol/L [facility] Potassium 4.0 3.5 - 5.0 mmol/L [facility] Comment: Please note: ??Patients with WBC >100,000 may have falsely elevated Potassium levels. ??For accurate Potassium quantification in these patients send serum separator tube (gold top) for subsequent determinations. ??Contact the Clinical Chemistry Laboratory if there are any questions. Chloride 104 98 - 107 mmol/L [facility] Carbon Dioxide 25 22 - 31 mmol/L [facility] Anion Gap 8 5 - 15 mmol/L [facility] Calcium 8.1(L) 8.5 - 10.5 mg/dL [facility] Est Glomerular Filtration Rate 107 >=60 mL/min/1. 73 m?? [facility] Comment: This patient? s estimated glomerular [...] Bolden MD CHEMISTRY ORDERABLES Performing Organization Address City/[facility]/ZIP Co de Phone Number [facility] [place] [address] * C. Difficile Screen (11/04/2020 12:42 AM EST) C Diff Interp Negative Negative [facility] Comment: Ag/Tox Neg C. diff?? [...] - GENER AL ORDERABLES Performing Organization Address City/[facility]/ZIP Co de Phone Number [facility] [place] [address] * XR Abdomen 1 view (Generic) (11/03/2020 12:37 PM EST) Anatomical Region Laterality Modality Abdomen N/A Digital Radiogra phy Impressions 11/03/2020 1:08 PM EST Diffuse gaseous distention of the stomach, small and large bowel. Thank you for letting us participate in the care of this patient. For questions regarding this report, please contact the number below. ? Electronically signed by: Rohit Ross MD, [facility] ([phone]), at 11/03/2020 1:08 PM Narrative 11/03/2020 1:08 [...] please contact the number below. Robyn Baker DRESSMAKER HELPER IMG DX ORDERABLES * Place PICC Line: Contact Vascular Access Page [phone] Extremity to exclude: No restrictions; Is PICC [...] to the planned procedure. Hand Hygiene: The project management consultant did perform hand hygiene prior to line insertion. Catheter type: PICC Lot number: [id number] Procedure Technique: Skin was prepped with chlorhexidine. [...] ? Electronically signed by: Nallely Donato MD, [facility] ([phone]), at 11/03/2020 12:18 PM Narrative 11/03/2020 12:18 [...] below. Electronically signed by: Nallely Donato MD, [facility]([phone]), at 11/03/2020 12:18 PM Robyn Baker DRESSMAKER HELPER IMG FLUORO ORDERAB LES * Differential, Automated (11/03/2020 3:15 AM EST) Neutrophil % 70.1 % [facility] Neutrophil Absolute 4.87 1.70 - 6.10 x10(3)/[facility] LABORATORY Lymph % 14.6 % [facility] Lymphocytes Abs 1.0 0.9 - 3.2 x10(3)/[facility] LABORATORY Monocyte % 10.5 % [facility] Monocyte Abs 0.7 0.3 - 0.9 x10(3)/[facility] LABORATORY Eos % 3.9 % [facility] Eosinophils Abs 0.3 0.0 - 0.4 x10(3)/[facility] LABORATORY Basophil % 0.3 % [facility] Baso Absolute 0.0 0.0 - 0.1 x10(3)/[facility] Immature Gran % 0.60 % [facility] Comment: Immature granulocytes(IG's)percentage and absolute count will include metamyelocytes, myelocytes, and promyelocytes. Blood smears from CBCs yielding IG's will be scanned manually for concordance. If this scan disagrees with the automated IG or if promyelocytes are noted, a manual differential will be performed. Immature Gran Absolute 0.04 0.00 - 0.04 x10(3)/mcL [facility] Blood specimen (specimen) 11/03/2020 3:15 AM EST 11/03/2020 3:20 AM EST Narrative Resulting Agency Comment Spec In Lab Noble Rodriguez MD HEMATOLOGY ORDERABLE S [facility] [place] [address] * (ABNORMAL) Hemogram (11/03/2020 3:15 AM EST) White Blood Cell 6.9 4.0 - 9.5 x10(3)/mc L [facility] Red Blood Cell 3.61(L) 4.58 - 5.54 x10(6)/mc L [facility] Hemoglobin 11.1(L) 13.7 - 16.5 gm/dL [facility] Hematocrit 32.1(L) 40.5 - 48.5 % [facility] Mean Cell Volume 88.9 82.9 - 93.1 fL [facility] Mean Cell Hemoglobin 30.7 27.5 - 32.1 pg [facility] Mean Cell Hemoglobin Concentration 34.6 32.0 - 35.7 gm/dL [facility] Platelet 205 145 - 357 x10(3)/mc L [facility] RDW Standard Deviation 39.2 36.0 - 45.0 fL [facility] RDW coefficient of variation 12.0 11.4 - 13.8 % [facility] Mean Platelet Volume 10.6 7.6 - 12.9 fL [facility] NRBC% auto 0.0 % [facility] NRBC Absolute 0.000 0.000 - 0.000 x10(3)/mc L [facility] Blood specimen (specimen) 11/03/2020 3:15 AM EST 11/03/2020 3:20 AM EST Narrative Resulting Agency Comment Spec In Lab Noble Rodriguez MD HEMATOLOGY ORDERABLE S Performing Organization Address [facility]/ZIP Co de Phone Number [facility] [place] [address] * Phosphorus (11/03/2020 3:15 AM EST) Phosphorus 3.1 2.5 - 4.5 mg/dL [facility] Blood specimen (specimen) 11/03/2020 3:15 AM EST 11/03/2020 3:20 AM EST Narrative Resulting Agency Comment Spec In Lab Radha Bolden MD CHEMISTRY ORDERABLES Performing Organization Address [facility] Co de Phone Number [facility] [place] [address] * Magnesium (11/03/2020 3:15 AM EST) Magnesium 0.82 0.69 - 1.07 mmol/L [facility] Blood specimen (specimen) 11/03/2020 3:15 AM EST 11/03/2020 3:20 AM EST Narrative Resulting Agency Comment Spec In Lab Radha Bolden MD CHEMISTRY ORDERABLES Performing Organization Address [facility] Co de Phone Number [facility] [place] [address] * (ABNORMAL) Basic Metabolic Panel (non-fasting) (11/03/2020 3:15 AM EST) Glucose 85 65 - 199 mg/dL [facility] Comment:Diabetes: >=200 mg/d L plus symptoms Blood Urea Nitrogen 22(H) 10 - 20 mg/dL [facility] Creatinine 0.76(L) 0.80 - 1.50 mg/dL [facility] Sodium 137 135 - 145 mmol/L [facility] Potassium 4.1 3.5 - 5.0 mmol/L [facility] Comment: Please note: ??Patients with WBC >100,000 may have falsely elevated Potassium levels. ??For accurate Potassium quantification in these patients send serum separator tube (gold top) for subsequent determinations. ??Contact the Clinical Chemistry Laboratory if there are any questions. Chloride 103 98 - 107 mmol/L [facility] Carbon Dioxide 22 22 - 31 mmol/L [facility] Anion Gap 12 5 - 15 mmol/L [facility] Calcium 8.2(L) 8.5 - 10.5 mg/dL [facility] Est Glomerular Filtration Rate 104 >=60 mL/min/1. 73 m?? [facility] Comment: This patient? s estimated glomerular [...] In Lab Radha Bolden MD CHEMISTRY ORDERABLES [facility] [place] [address] * XR Chest One View (11/02/2020 6:10 PM EST) Anatomical Region Laterality Modality Chest N/A Digital Radiogra phy Impressions 11/02/2020 6:40 PM EST No acute cardiopulmonary abnormality. Thank you for letting us participate in the care of this patient. For questions regarding this report, please contact the number below. ? Electronically signed by: Caleb Branch MD, [facility] ([phone]), at 11/02/2020 6:40 PM Narrative 11/02/2020 6:40 [...] below. Electronically signed by: Caleb Branch MD, [facility]([phone]), at 11/02/2020 6:40 PM Gaurav Shoemaker MD IMG DX ORDERABLES * (ABNORMAL) Differential, Automated (11/02/2020 3:52 AM EST) Neutrophil % 63.2 % [facility] Neutrophil Absolute 4.39 1.70 - 6.10 x10(3)/[facility] Lymph % 19.4 % [facility] Lymphocytes Abs 1.4 0.9 - 3.2 x10(3)/[facility] Monocyte % 13.9 % [facility] Monocyte Abs 1.0(H) 0.3 - 0.9 x10(3)/[facility] Eos % 2.7 % [facility] Eosinophils Abs 0.2 0.0 - 0.4 x10(3)/[facility] Basophil % 0.4 % [facility] Baso Absolute 0.0 0.0 - 0.1 x10(3)/[facility] Immature Gran % 0.40 % [facility] Comment: Immature granulocytes(IG's)percentage and absolute count will include metamyelocytes, myelocytes, and promyelocytes. Blood smears from CBCs yielding IG's will be scanned manually for concordance. If this scan disagrees with the automated IG or if promyelocytes are noted, a manual differential will be performed. Immature Gran Absolute 0.03 0.00 - 0.04 x10(3)/[facility] Blood specimen (specimen) 11/02/2020 3:52 AM EST 11/02/2020 4:01 AM EST Narrative Resulting Agency Comment Spec In Lab Noble Rodriguez MD HEMATOLOGY ORDERABLE S [facility] [place] [address] * (ABNORMAL) Hemogram (11/02/2020 3:52 AM EST) White Blood Cell 7.0 4.0 - 9.5 x10(3)/[facility] Red Blood Cell 3.39(L) 4.58 - 5.54 x10(6)/mc L [facility] Hemoglobin 10.3(L) 13.7 - 16.5 gm/dL [facility] Hematocrit 30.4(L) 40.5 - 48.5 % [facility] Mean Cell Volume 89.7 82.9 - 93.1 fL [facility] Mean Cell Hemoglobin 30.4 27.5 - 32.1 pg [facility] Mean Cell Hemoglobin Concentration 33.9 32.0 - 35.7 gm/dL [facility] Platelet 188 145 - 357 x10(3)/mc L [facility] RDW Standard Deviation 39.9 36.0 - 45.0 [facility] RDW coefficient of variation 12.2 11.4 - 13.8 % [facility] Mean Platelet Volume 10.6 7.6 - 12.9 fL [facility] NRBC% auto 0.0 % [facility] NRBC Absolute 0.000 0.000 - 0.000 x10(3)/mc L [facility] Blood specimen (specimen) 11/02/2020 3:52 AM EST 11/02/2020 4:01 AM EST Narrative Resulting Agency Comment Spec In Lab Noble Rodriguez MD HEMATOLOGY ORDERABLE S Performing Organization Address City/[facility]/ZIP Co de Phone Number [facility] [place] [address] * Phosphorus (11/02/2020 3:52 AM EST) Phosphorus 4.0 2.5 - 4.5 mg/dL [facility] Blood specimen (specimen) 11/02/2020 3:52 AM EST 11/02/2020 4:01 AM EST Narrative Resulting Agency Comment Spec In Lab Radha Bolden MD CHEMISTRY ORDERABLES Performing Organization Address City/[facility]/ZIP Co de Phone Number [facility] [place] [address] * Magnesium (11/02/2020 3:52 AM EST) Magnesium 0.82 0.69 - 1.07 mmol/L [facility] Blood specimen (specimen) 11/02/2020 3:52 AM EST 11/02/2020 4:01 AM EST Narrative Resulting Agency Comment Spec In Lab Radha Bolden MD CHEMISTRY ORDERABLES [facility] [place] [address] * (ABNORMAL) Basic Metabolic Panel (non-fasting) (11/02/2020 3:52 AM EST) Glucose 89 65 - 199 mg/dL [facility] Comment:Diabetes: >=200 mg/d L plus symptoms Blood Urea Nitrogen 24(H) 10 - 20 mg/dL [facility] Creatinine 0.83 0.80 - 1.50 mg/dL [facility] Sodium 136 135 - 145 mmol/L [facility] Potassium 4.4 3.5 - 5.0 mmol/L [facility] Comment: Please note: ??Patients with WBC >100,000 may have falsely elevated Potassium levels. ??For accurate Potassium quantification in these patients send serum separator tube (gold top) for subsequent determinations. ??Contact the Clinical Chemistry Laboratory if there are any questions. Chloride 103 98 - 107 mmol/L [facility] Carbon Dioxide 21(L) 22 - 31 mmol/L [facility] Anion Gap 12 5 - 15 mmol/L [facility] Calcium 8.2(L) 8.5 - 10.5 mg/dL [facility] Est Glomerular Filtration Rate 100 >=60 mL/min/1. 73 m?? [facility] Comment: This patient? s estimated glomerular [...] In Lab Radha Bolden MD CHEMISTRY ORDERABLES [facility] [place] [address] * XR Abdomen 1 view (Generic) (11/01/2020 [...] below. Electronically signed by: Killian Bob MD, [facility]([phone]), at 11/01/2020 4:03 PM Gaurav Shoemaker MD [...] ? Electronically signed by: Lili Burgos MD, [facility] ([phone]), at 11/01/2020 4:19 PM Narrative 11/01/2020 4:19 PM EST EXAMINATION: XR CHEST ONE VIEW CLINICAL HISTORY: febrile, tachycardic, TECHNIQUE: 1 view of the chest COMPARISON: Chest radiograph 10/30/2020 FINDINGS: Enteric tube seen along the course of the esophagus with distal tip outside the [id number] beyond the GE junction. Partially visualized cervical [...] of the esophagus with distal tipoutside the [id number] beyond the GE junction. Partially visualized cervicalfusion [...] RBC, Urine 12(H) 0 - 3 /HPF [facility] WBC, Urine 4(H) 0 - 3 /HPF [facility] Bacteria, Urine Few(A) None /HPF [facility] Transitional Epithelial Cells, Urine <1 <=1 /HPF [facility] Uric Acid Crystal, Urine Occasiona l(A) None /HPF [facility] Urine specimen obtained via indwelling urinary catheter (specimen) 11/01/2020 10:30 AM EST 11/01/2020 10:39 AM EST Narrative Resulting Agency Comment Spec In Lab Bhumi Corley MD URINE ORDERABLES [facility] [place] [address] * (ABNORMAL) Urinalysis with reflex Culture (11/01/2020 10:30 AM EST) Glucose, Urine Dipstick Negative Negative mg/dL [facility] Protein, Urine Dipstick 30(A) Negative mg/dL [facility] Bilirubin, Urine Dipstick Negative Negative mg/dL [facility] Comment: Clinical correlation required for positive Urine Bilirubin results as false positive may occur with some drugs and drug related products. If a false positive is suspected a serum total bilirubin should be considered if clinically indicated. Urobilinogen, Urine Dipstick Normal Normal mg/dL [facility] pH, Urn (dipstick) 6.0 5.0 - 8.0 [facility] Blood, Urine Dipstick Moderate(A) Negative mg/dL [facility] Ketone, Urine Dipstick 15(A) Negative mg/dL [facility] Nitrite, Urine Dipstick Negative Negative [facility] Leukocytes, Urine Dipstick Negative Negative [facility] Appearance, Urine Dipstick Clear Clear [facility] Specific [place] Urine Automated >=1.030(A) 1.006 - 1.030 [facility] Color, Urine Dipstick Yellow Yellow [facility] Reflex to Culture No [facility] Urine specimen obtained via indwelling urinary catheter (specimen) 11/01/2020 10:30 AM EST 11/01/2020 10:39 AM EST Narrative Resulting Agency Comment Spec In Lab Gaurav Shoemaker MD URINE ORDERABLES Performing Organization Address [facility] de Phone Number [facility] [place] [address] * Blood culture (11/01/2020 5:56 AM EST) Blood Culture No growth at 5 days. [facility] Blood specimen (specimen) 11/01/2020 5:56 AM EST 11/01/2020 7:38 AM EST Narrative Resulting Agency Comment Spec In Lab Gaurav Shoemaker MD MICROBIOLOGY - BLOOD ORDERABLES Performing Organization Address [facility] de Phone Number [facility] [place] [address] * (ABNORMAL) Comprehensive metabolic panel (non-fasting) (11/01/2020 5:47 AM EST) Glucose Not Perf 65 - 199 [facility] Comment: Duplicate order Diabetes: >=200 mg/dL plus symptoms Blood Urea Nitrogen Not Perf 10 - 20 [facility] Comment:Duplicate order Creatinine Not Perf 0.80 - 1.50 [facility] Comment:Duplicate order Sodium Not Perf 135 - 145 [facility] Comment:Duplicate order Potassium Not Perf 3.5 - 5.0 [facility] Comment: Duplicate order Please note: ??Patients with WBC >100,000 may have falsely elevated Potassium levels. ??For accurate Potassium quantification in these patients send serum separator tube (gold top) for subsequent determinations. ??Contact the Clinical Chemistry Laboratory if there are any questions. Chloride Not Perf 98 - 107 [facility] Comment:Duplicate order Carbon Dioxide Not Perf 22 - 31 [facility] Comment:Duplicate order Anion Gap Not Calculated 5 - 15 mmol/L [facility] Comment:Duplicate order Calcium Not Perf 8.5 - 10.5 [facility] Comment:Duplicate order Protein, Total 5.6(L) 6.1 - 8.0 gm/dL [facility] Albumin 2.8(L) 3.2 - 5.2 gm/dL [facility] Aspartate Aminotransferase 36 0 - 39 unit/L [facility] Alanine Aminotransferase 32 0 - 55 unit/L [facility] Alkaline Phosphatase 58 40 - 130 unit/L [facility] Bilirubin, Total 0.4 0.2 - 1.3 mg/dL [facility] Est Glomerular Filtration Rate Not Calculated >=60 [facility] Comment:Duplicate order Blood specimen (specimen) 11/01/2020 5:47 AM EST 11/01/2020 6:06 AM EST Narrative Resulting Agency Comment Spec In Lab Gaurav Shoemaker MD CHEMISTRY ORDERABLES [facility] [place] [address] * Differential, Automated (11/01/2020 5:47 AM EST) Neutrophil % 67.7 % [facility] Neutrophil Absolute 4.41 1.70 - 6.10 x10(3)/mcL [facility] Lymph % 19.1 % [facility] Lymphocytes Abs 1.2 0.9 - 3.2 x10(3)/[facility] Monocyte % 12.6 % [facility] Monocyte Abs 0.8 0.3 - 0.9 x10(3)/[facility] Eos % 0.2 % [facility] Eosinophils Abs 0.0 0.0 - 0.4 x10(3)/[facility] Basophil % 0.2 % [facility] Baso Absolute 0.0 0.0 - 0.1 x10(3)/[facility] Immature Gran % 0.20 % [facility] Comment: Immature granulocytes(IG's)percentage and absolute count will include metamyelocytes, myelocytes, and promyelocytes. Blood smears from CBCs yielding IG's will be scanned manually for concordance. If this scan disagrees with the automated IG or if promyelocytes are noted, a manual differential will be performed. Immature Gran Absolute 0.01 0.00 - 0.04 x10(3)/[facility] Blood specimen (specimen) 11/01/2020 5:47 AM EST 11/01/2020 6:04 AM EST Narrative Resulting Agency Comment Spec In Lab Bhumi Corley MD HEMATOLOGY ORDERABLE S [facility] [place] [address] * (ABNORMAL) Hemogram (11/01/2020 5:47 AM EST) White Blood Cell 6.5 4.0 - 9.5 x10(3)/mc L [facility] Red Blood Cell 3.43(L) 4.58 - 5.54 x10(6)/mc L [facility] Hemoglobin 10.6(L) 13.7 - 16.5 gm/dL [facility] Hematocrit 30.9(L) 40.5 - 48.5 % [facility] Mean Cell Volume 90.1 82.9 - 93.1 fL [facility] Mean Cell Hemoglobin 30.9 27.5 - 32.1 pg [facility] Mean Cell Hemoglobin Concentration 34.3 32.0 - 35.7 gm/dL [facility] Platelet 185 145 - 357 x10(3)/mc L [facility] RDW Standard Deviation 39.7 36.0 - 45.0 [facility] RDW coefficient of variation 12.2 11.4 - 13.8 % [facility] Mean Platelet Volume 10.9 7.6 - 12.9 [facility] NRBC% auto 0.0 % [facility] NRBC Absolute 0.000 0.000 - 0.000 x10(3)/mc L [facility] Blood specimen (specimen) 11/01/2020 5:47 AM EST 11/01/2020 6:04 AM EST Narrative Resulting Agency Comment Spec In Lab Bhumi Corley MD HEMATOLOGY ORDERABLE S [facility] [place] [address] * (ABNORMAL) Basic Metabolic Panel (non-fasting) (11/01/2020 5:47 AM EST) Glucose 92 65 - 199 mg/dL [facility] Comment:Diabetes: >=200 mg/d L plus symptoms Blood Urea Nitrogen 19 10 - 20 mg/dL [facility] Creatinine 1.13 0.80 - 1.50 mg/dL [facility] Sodium 132(L) 135 - 145 mmol/L [facility] Potassium 3.7 3.5 - 5.0 mmol/L [facility] Comment: Please note: ??Patients with WBC >100,000 may have falsely elevated Potassium levels. ??For accurate Potassium quantification in these patients send serum separator tube (gold top) for subsequent determinations. ??Contact the Clinical Chemistry Laboratory if there are any questions. Chloride 101 98 - 107 mmol/L [facility] Carbon Dioxide 21(L) 22 - 31 mmol/L [facility] Anion Gap 10 5 - 15 mmol/L [facility] Calcium 8.0(L) 8.5 - 10.5 mg/dL [facility] Est Glomerular Filtration Rate 74 >=60 mL/min/1. 73 m?? [facility] Comment: This patient? s estimated glomerular [...] In Lab Gaurav Shoemaker MD CHEMISTRY ORDERABLES [facility] [place] [address] * (ABNORMAL) Blood culture (11/01/2020 5:47 AM EST) Blood Culture Coagulase negative Staphylococcus species detected by PCR Interpretation of the importance of skin daphne such as Coagulase Negative Staph, Viridans Strep, Corynebacteria and other Gram Positive organisms from a single Blood Culture set requires clinical correlation. (A) [facility] Gram Stain Aerobic Growth detected in aerobic bottle. Gram Positive Cocci in clusters seen (A) [facility] Organism Coagulase negative Staphylococcus species(A) [facility] Organism Gram Positive Cocci in clusters(A) [facility] Blood specimen (specimen) STRUCTURE OF RIGHT HAND / Unknown 11/01/2020 5:47 AM EST 11/01/2020 7:40 AM EST Narrative Resulting Agency Comment Spec In Lab Gaurav Shoemaker MD MICROBIOLOGY - BLOOD ORDERABLES Performing Organization Address [facility] Phone Number [facility] [place] [address] * POCT Glucose (11/01/2020 5:23 AM EST) Glucose, POC 105 65 - 199 mg/dL [facility] Comment: Supplemental ranges: <140 mg/dL before meals <180 mg/dL all other times of the day Blood specimen (specimen) 11/01/2020 5:23 AM EST 11/01/2020 5:23 AM EST Gaurav Shoemaker MD POINT OF CARE TEST O RDERABLES Performing Organization Address [facility] Phone Number [facility] [place] [address] * Phosphorus (11/01/2020 3:55 AM EST) Phosphorus 2.9 2.5 - 4.5 mg/dL [facility] Blood specimen (specimen) 11/01/2020 3:55 AM EST 11/01/2020 4:23 AM EST Narrative Resulting Agency Comment Spec In Lab Radha Bolden MD CHEMISTRY ORDERABLES Performing Organization Address [facility] de Phone Number [facility] [place] [address] * Magnesium (11/01/2020 3:55 AM EST) Magnesium 0.79 0.69 - 1.07 mmol/L [facility] Blood specimen (specimen) 11/01/2020 3:55 AM EST 11/01/2020 4:23 AM EST Narrative Resulting Agency Comment Spec In Lab Radha Bolden MD CHEMISTRY ORDERABLES Performing Organization Address [facility] Phone Number [facility] [place] [address] * XR Fluoro Barium Swallow (Video Swallow [...] ? Electronically signed by: Lawrence Molina MD, [facility] ([phone]), at 10/31/2020 4:12 PM Narrative 10/31/2020 4:12 [...] Soft solid trigger was post piriform sinuses. [place] trigger is post piriform sinuses. With nectar [...] Soft solid trigger was post piriform sinuses. [place] trigger is post piriform sinuses. With nectar [...] below. Electronically signed by: Lawrence Molina MD, [facility]([phone]), at 10/31/2020 4:12 PM Gaurav Shoemaker MD IMG FLUORO ORDERABLE S * Differential, Automated (10/31/2020 12:42 AM EST) Neutrophil % 68.8 % [facility] Neutrophil Absolute 5.30 1.70 - 6.10 x10(3)/[facility] Lymph % 18.7 % [facility] Lymphocytes Abs 1.4 0.9 - 3.2 x10(3)/[facility] Monocyte % 9.9 % [facility] Monocyte Abs 0.8 0.3 - 0.9 x10(3)/[facility] Eos % 2.0 % [facility] Eosinophils Abs 0.2 0.0 - 0.4 x10(3)/[facility] Basophil % 0.3 % [facility] Baso Absolute 0.0 0.0 - 0.1 x10(3)/[facility] Immature Gran % 0.30 % [facility] Comment: Immature granulocytes(IG's)percentage and absolute count will include metamyelocytes, myelocytes, and promyelocytes. Blood smears from CBCs yielding IG's will be scanned manually for concordance. If this scan disagrees with the automated IG or if promyelocytes are noted, a manual differential will be performed. Immature Gran Absolute 0.02 0.00 - 0.04 x10(3)/mcL [facility] Blood specimen (specimen) 10/31/2020 12:42 AM EST 10/31/2020 1:02 AM EST Narrative Resulting Agency Comment Spec In Lab Alex Oropeza MD HEMATOLOGY ORDERABLE S [facility] [place] [address] * (ABNORMAL) Hemogram (10/31/2020 12:42 AM EST) White Blood Cell 7.7 4.0 - 9.5 x10(3)/mc L [facility] Red Blood Cell 3.00(L) 4.58 - 5.54 x10(6)/mc L [facility] Hemoglobin 9.4(L) 13.7 - 16.5 gm/dL [facility] Hematocrit 27.0(L) 40.5 - 48.5 % [facility] Mean Cell Volume 90.0 82.9 - 93.1 fL [facility] Mean Cell Hemoglobin 31.3 27.5 - 32.1 pg [facility] Mean Cell Hemoglobin Concentration 34.8 32.0 - 35.7 gm/dL [facility] Platelet 138(L) 145 - 357 x10(3)/mc L [facility] RDW Standard Deviation 39.6 36.0 - 45.0 fL [facility] RDW coefficient of variation 12.1 11.4 - 13.8 % [facility] Mean Platelet Volume 11.7 7.6 - 12.9 fL [facility] NRBC% auto 0.0 % [facility] NRBC Absolute 0.000 0.000 - 0.000 x10(3)/mc L [facility] Blood specimen (specimen) 10/31/2020 12:42 AM EST 10/31/2020 1:02 AM EST Narrative Resulting Agency Comment Spec In Lab Alex Oropeza MD HEMATOLOGY ORDERABLE S [facility] [place] [address] * (ABNORMAL) Basic Metabolic Panel (non-fasting) (10/31/2020 12:42 AM EST) Glucose 97 65 - 199 mg/dL [facility] Comment:Diabetes: >=200 mg/d L plus symptoms Blood Urea Nitrogen 15 10 - 20 mg/dL [facility] Creatinine 0.78(L) 0.80 - 1.50 mg/dL [facility] Sodium 135 135 - 145 mmol/L [facility] Potassium 3.8 3.5 - 5.0 mmol/L [facility] Comment: Please note: ??Patients with WBC >100,000 may have falsely elevated Potassium levels. ??For accurate Potassium quantification in these patients send serum separator tube (gold top) for subsequent determinations. ??Contact the Clinical Chemistry Laboratory if there are any questions. Chloride 105 98 - 107 mmol/L [facility] Carbon Dioxide 24 22 - 31 mmol/L [facility] Anion Gap 6 5 - 15 mmol/L [facility] Calcium 7.5(L) 8.5 - 10.5 mg/dL [facility] Est Glomerular Filtration Rate 103 >=60 mL/min/1. 73 m?? [facility] Comment: This patient? s estimated glomerular [...] Bolden MD CHEMISTRY ORDERABLES Performing Organization Address City/[facility] Co de Phone Number [facility] [place] [address] * (ABNORMAL) Phosphorus (10/31/2020 12:42 AM EST) Phosphorus 2.2(L) 2.5 - 4.5 mg/dL [facility] Blood specimen (specimen) 10/31/2020 12:42 AM EST 10/31/2020 1:02 AM EST Narrative Resulting Agency Comment Spec In Lab Radha Bolden MD CHEMISTRY ORDERABLES Performing Organization Address [facility] Co de Phone Number [facility] [place] [address] * Magnesium (10/31/2020 12:42 AM EST) Magnesium 0.72 0.69 - 1.07 mmol/L [facility] Blood specimen (specimen) 10/31/2020 12:42 AM EST 10/31/2020 1:02 AM EST Narrative Resulting Agency Comment Spec In Lab Radha Bolden MD CHEMISTRY ORDERABLES Performing Organization Address [facility] Co de Phone Number [facility] [place] [address] * POCT Glucose (10/30/2020 7:40 PM EST) Glucose, POC 95 65 - 199 mg/dL [facility] Comment: Supplemental ranges: <140 mg/dL before meals <180 mg/dL all other times of the day Blood specimen (specimen) 10/30/2020 7:40 PM EST 10/30/2020 7:40 PM EST Gaurav Shoemaker MD POINT OF CARE TEST O RDERABLES Performing Organization Address [facility] de Phone Number [facility] [place] [address] * Electrolytes panel (10/30/2020 6:15 PM EST) Sodium 135 135 - 145 mmol/L [facility] Potassium 4.1 3.5 - 5.0 mmol/L [facility] Comment: Please note: ??Patients with WBC >100,000 may have falsely elevated Potassium levels. ??For accurate Potassium quantification in these patients send serum separator tube (gold top) for subsequent determinations. ??Contact the Clinical Chemistry Laboratory if there are any questions. Chloride 104 98 - 107 mmol/L [facility] Carbon Dioxide 24 22 - 31 mmol/L [facility] Anion Gap 7 5 - 15 mmol/L [facility] Blood specimen (specimen) 10/30/2020 6:15 PM EST 10/30/2020 6:24 PM EST Narrative Resulting Agency Comment Spec In Lab Gaurav Shoemaker MD CHEMISTRY ORDERABLES Performing Organization Address [facility] de Phone Number [facility] [place] [address] * Osmolality (10/30/2020 4:55 PM EST) Osmolality 281 275 - 295 mOsm/kg [facility] Blood specimen (specimen) 10/30/2020 4:55 PM EST 10/30/2020 5:32 PM EST Narrative Resulting Agency Comment Spec In Lab Gaurav Shoemaker MD CHEMISTRY ORDERABLES Performing Organization Address [facility] Co de Phone Number [facility] [place] [address] * Osmolality, urine, random (10/30/2020 4:36 PM EST) Osmolality, Urine 991 50 - 1,200 mOsm/kg [facility] Urine specimen (specimen) 10/30/2020 4:36 PM EST 10/30/2020 5:49 PM EST Narrative Resulting Agency Comment Spec In Lab Gaurav Shoemaker MD URINE ORDERABLES Performing Organization Address [facility] de Phone Number [facility] [place] [address] * Electrolytes, urine, random (10/30/2020 4:36 PM EST) Sodium, Urine 60 mmol/L [facility] Potassium, Urine 43 mmol/L [facility] Chloride, Urine 48 mmol/L [facility] Urine specimen (specimen) 10/30/2020 4:36 PM EST 10/30/2020 5:49 PM EST Narrative Resulting Agency Comment Spec In Lab Gaurav Shoemaker MD URINE ORDERABLES Performing Organization Address [facility] de Phone Number [facility] [place] [address] * XR Chest One View (10/30/2020 4:35 [...] ? Electronically signed by: Rajinder Lam MD, [facility] ([phone]), at 10/30/2020 5:22 PM Narrative 10/30/2020 5:22 [...] below. Electronically signed by: Rajinder Lam MD, [facility]([phone]), at 10/30/2020 5:22 PM Gaurav Shoemaker MD IMG DX ORDERABLES * (ABNORMAL) BLOOD GAS 2 ARTERIAL (10/30/2020 3:19 PM EST) pH, Arterial 7.43 7.35 - 7.45 [facility] PCO2, Arterial 36 35 - 45 mmHg [facility] PO2, Arterial 64(L) 85 - 104 mmHg [facility] Bicarbonate, Arterial 23.4 20.0 - 26.0 mmol/L [facility] Base Excess, Arterial -0.8 -3.0 - 3.0 mmol/L [facility] Hgb Blood Gas 10.8(L) 13.7 - 16.5 gm/dL [facility] Oxyhemoglobin, Arterial 91.0(L) 94.0 - 97.0 % [facility] Carboxyhemoglob in, Arterial 0.3 % [facility] Comment: Nonsmokers: 0.5-1.5% COHB Smokers: Variable, but usually less than 10% Toxic: 20-30% COHB Lethal: Greater than 60% COHB Methemoglobin, Arterial 0.6 <=1.5 % [facility] Na Whole Blood 132(L) 135 - 145 mmol/L [facility] K Whole Blood 3.5 3.5 - 5.0 mmol/L [facility] Comment: Please note: Patients with WBC >100,000 may have falsely elevated Potassium levels. Contact the Clinical Chemistry Laboratory if there are any questions. ICa Whole Blood 1.11(L) 1.15 - 1.33 mmol/L [facility] Comment: Note: ??Total bilirubin higher than 20 mg/dL may lead to falsely low ionized calcium. CL Whole Blood 103 98 - 107 mmol/L [facility] Gluc Whole Bld 121 65 - 199 mg/dL [facility] Comment:Diabetes: >=200 mg/d L plus symptoms. Lactate WB 0.8 0.5 - 2.2 mmol/L [facility] FIO2 Art 21 % [facility] PF Ratio Art 305 [facility] Blood specimen (specimen) 10/30/2020 3:19 PM EST 10/30/2020 3:19 PM EST Gaurav Shoemaker MD POINT OF CARE TEST O RDERABLES Performing Organization Address City/[facility]/ZIP Co de Phone Number [facility] [place] [address] * (ABNORMAL) CK (10/30/2020 1:15 PM EST) Creatine Kinase 333(H) 0 - 200 unit/L [facility] Blood specimen (specimen) 10/30/2020 1:15 PM EST 10/30/2020 1:28 PM EST Narrative Resulting Agency Comment Spec In Lab Gaurav Shoemaker MD CHEMISTRY ORDERABLES Performing Organization Address [facility] Co de Phone Number [facility] [place] [address] * (ABNORMAL) Basic Metabolic Panel (non-fasting) (10/30/2020 1:15 PM EST) Glucose 118 65 - 199 mg/dL [facility] Comment:Diabetes: >=200 mg/d L plus symptoms Blood Urea Nitrogen 17 10 - 20 mg/dL [facility] Creatinine 0.81 0.80 - 1.50 mg/dL [facility] Sodium 133(L) 135 - 145 mmol/L [facility] Potassium 3.7 3.5 - 5.0 mmol/L [facility] Comment: Please note: ??Patients with WBC >100,000 may have falsely elevated Potassium levels. ??For accurate Potassium quantification in these patients send serum separator tube (gold top) for subsequent determinations. ??Contact the Clinical Chemistry Laboratory if there are any questions. Chloride 103 98 - 107 mmol/L [facility] Carbon Dioxide 24 22 - 31 mmol/L [facility] Anion Gap 6 5 - 15 mmol/L [facility] Calcium 7.0(L) 8.5 - 10.5 mg/dL [facility] Est Glomerular Filtration Rate 101 >=60 mL/min/1. 73 m?? [facility] Comment: This patient? s estimated glomerular [...] In Lab Gaurav Shoemaker MD CHEMISTRY ORDERABLES [facility] [place] [address] * (ABNORMAL) Differential, Automated (10/30/2020 1:05 AM EST) Neutrophil % 74.4 % [facility] Neutrophil Absolute 7.02(H) 1.70 - 6.10 x10(3)/mc L [facility] Lymph % 13.4 % [facility] Lymphocytes Abs 1.3 0.9 - 3.2 x10(3)/mc L [facility] Monocyte % 11.5 % [facility] Monocyte Abs 1.1(H) 0.3 - 0.9 x10(3)/mc L [facility] Eos % 0.2 % [facility] Eosinophils Abs 0.0 0.0 - 0.4 x10(3)/mc L [facility] Basophil % 0.2 % [facility] Baso Absolute 0.0 0.0 - 0.1 x10(3)/mc L [facility] Immature Gran % 0.30 % [facility] Comment: Immature granulocytes(IG's)percentage and absolute count will include metamyelocytes, myelocytes, and promyelocytes. Blood smears from CBCs yielding IG's will be scanned manually for concordance. If this scan disagrees with the automated IG or if promyelocytes are noted, a manual differential will be performed. Immature Gran Absolute 0.03 0.00 - 0.04 x10(3)/mc L [facility] Blood specimen (specimen) 10/30/2020 1:05 AM EST 10/30/2020 1:24 AM EST Narrative Resulting Agency Comment Spec In Lab Alex Oropeza MD HEMATOLOGY ORDERABLE S [facility] [place] [address] * (ABNORMAL) Hemogram (10/30/2020 1:05 AM EST) White Blood Cell 9.4 4.0 - 9.5 x10(3)/mc L [facility] Red Blood Cell 3.38(L) 4.58 - 5.54 x10(6)/mc L [facility] Hemoglobin 10.3(L) 13.7 - 16.5 gm/dL [facility] Hematocrit 30.2(L) 40.5 - 48.5 % [facility] Mean Cell Volume 89.3 82.9 - 93.1 fL [facility] Mean Cell Hemoglobin 30.5 27.5 - 32.1 pg [facility] Mean Cell Hemoglobin Concentration 34.1 32.0 - 35.7 gm/dL [facility] Platelet 159 145 - 357 x10(3)/mc L [facility] RDW Standard Deviation 39.8 36.0 - 45.0 [facility] RDW coefficient of variation 12.2 11.4 - 13.8 % [facility] Mean Platelet Volume 11.6 7.6 - 12.9 fL [facility] NRBC% auto 0.0 % [facility] NRBC Absolute 0.000 0.000 - 0.000 x10(3)/mc L [facility] Blood specimen (specimen) 10/30/2020 1:05 AM EST 10/30/2020 1:24 AM EST Narrative Resulting Agency Comment Spec In Lab Alex Oropeza MD HEMATOLOGY ORDERABLE S [facility] [place] [address] * (ABNORMAL) Basic Metabolic Panel (non-fasting) (10/30/2020 1:05 AM EST) Glucose 108 65 - 199 mg/dL [facility] Comment:Diabetes: >=200 mg/d L plus symptoms Blood Urea Nitrogen 15 10 - 20 mg/dL [facility] Creatinine 0.87 0.80 - 1.50 mg/dL [facility] Sodium 136 135 - 145 mmol/L [facility] Potassium 3.7 3.5 - 5.0 mmol/L [facility] Comment: Please note: ??Patients with WBC >100,000 may have falsely elevated Potassium levels. ??For accurate Potassium quantification in these patients send serum separator tube (gold top) for subsequent determinations. ??Contact the Clinical Chemistry Laboratory if there are any questions. Chloride 105 98 - 107 mmol/L [facility] Carbon Dioxide 24 22 - 31 mmol/L [facility] Anion Gap 7 5 - 15 mmol/L [facility] Calcium 7.5(L) 8.5 - 10.5 mg/dL [facility] Est Glomerular Filtration Rate 99 >=60 mL/min/1. 73 m?? [facility] Comment: This patient? s estimated glomerular [...] Bolden MD CHEMISTRY ORDERABLES Performing Organization Address [facility] Co de Phone Number [facility] [place] [address] * (ABNORMAL) Phosphorus (10/30/2020 1:05 AM EST) Phosphorus 1.8(L) 2.5 - 4.5 mg/dL [facility] Blood specimen (specimen) 10/30/2020 1:05 AM EST 10/30/2020 1:24 AM EST Narrative Resulting Agency Comment Spec In Lab Radha Bolden MD CHEMISTRY ORDERABLES Performing Organization Address [facility] de Phone Number [facility] [place] [address] * Magnesium (10/30/2020 1:05 AM EST) Magnesium 0.77 0.69 - 1.07 mmol/L [facility] Blood specimen (specimen) 10/30/2020 1:05 AM EST 10/30/2020 1:24 AM EST Narrative Resulting Agency Comment Spec In Lab Radha Bolden MD CHEMISTRY ORDERABLES Performing Organization Address [facility] de Phone Number [facility] [place] [address] * (ABNORMAL) Phosphorus (10/29/2020 12:18 PM EST) Phosphorus 1.9(L) 2.5 - 4.5 mg/dL [facility] Blood specimen (specimen) 10/29/2020 12:18 PM EST 10/29/2020 12:36 PM EST Narrative Resulting Agency Comment Spec In Lab Adrienne Medellin MD CHEMISTRY ORDERABLES Performing Organization Address [facility]/ZIP Co de Phone Number [facility] [place] [address] * (ABNORMAL) Urinalysis Microscopic Exam (10/29/2020 12:03 PM EST) RBC, Urine 3 0 - 3 /HPF [facility] WBC, Urine 6(H) 0 - 3 /HPF [facility] Bacteria, Urine Rare(A) None /HPF [facility] Squamous Epithelial Cells Raw Data, Urine 4 <=4 /HPF [facility] Renal Epithelial Cells, Urine 1(H) <=0 /HPF [facility] Comment: Interpret results with caution, microscopic results are from suboptimal specimen volume Hyaline Casts, Urine 4(H) 0 - 2 /LPF [facility] Urine specimen obtained via indwelling urinary catheter (specimen) 10/29/2020 12:03 PM EST 10/29/2020 12:37 PM EST Narrative Resulting Agency Comment Spec In Lab Neida Omalley MD URINE ORDERABLES Performing Organization Address [facility] Co de Phone Number [facility] [place] [address] * (ABNORMAL) Urinalysis with reflex Culture (10/29/2020 12:03 PM EST) Glucose, Urine Dipstick Negative Negative mg/dL [facility] Protein, Urine Dipstick Trace(A) Negative mg/dL [facility] Bilirubin, Urine Dipstick Negative Negative mg/dL [facility] Comment: Clinical correlation required for positive Urine Bilirubin results as false positive may occur with some drugs and drug related products. If a false positive is suspected a serum total bilirubin should be considered if clinically indicated. Urobilinogen, Urine Dipstick Normal Normal mg/dL [facility] pH, Urn (dipstick) 6.0 5.0 - 8.0 [facility] Blood, Urine Dipstick Trace(A) Negative mg/dL [facility] Ketone, Urine Dipstick 40(A) Negative mg/dL [facility] Nitrite, Urine Dipstick Negative Negative [facility] Leukocytes, Urine Dipstick Negative Negative [facility] Appearance, Urine Dipstick Clear Clear [facility] Specific [place] Urine Automated >=1.030(A) 1.006 - 1.030 [facility] Color, Urine Dipstick Yellow Yellow [facility] Reflex to Culture No [facility] Urine specimen obtained via indwelling urinary catheter (specimen) 10/29/2020 12:03 PM EST 10/29/2020 12:37 PM EST Narrative Resulting Agency Comment Spec In Lab Adrienne Medellin MD URINE ORDERABLES Performing Organization Address [facility] Co de Phone Number [facility] [place] [address] * Blood culture (10/29/2020 6:10 AM EST) Blood Culture No growth at 5 days. [facility] Blood specimen (specimen) STRUCTURE OF RIGHT HAND / Unknown 10/29/2020 6:10 AM EST 10/29/2020 6:38 AM EST Narrative Resulting Agency Comment Spec In Lab Adrienne Medellin MD MICROBIOLOGY - BLOOD ORDERABLES Performing Organization Address City/[facility] Co de Phone Number [facility] [place] [address] * Blood culture (10/29/2020 6:10 AM EST) Blood Culture No growth at 5 days. [facility] Blood specimen (specimen) STRUCTURE OF LEFT UPPER LIMB / Unknown 10/29/2020 6:10 AM EST 10/29/2020 6:39 AM EST Narrative Resulting Agency Comment Spec In Lab Adrienne Medellin MD MICROBIOLOGY - BLOOD ORDERABLES [facility] [place] [address] * XR Chest One View (10/29/2020 6:07 [...] course of the esophagus courses off the [id number] inferiorly over the abdomen. Thank you for letting us participate in the care of this patient. For questions regarding this report, please contact the number below. ? Electronically signed by: Allen García MD, [facility] ([phone]), at 10/29/2020 6:35 AM Narrative 10/29/2020 6:35 [...] expected course of the esophagus coursesoff the [id number] inferiorly over the abdomen. Thank you for letting us participate in the care of this patient. Forquestions regarding this report, please contact the number below. Electronically signed by: Allen García MD, [facility]([phone]), at 10/29/2020 6:35 AM Adrienne Medellin MD IMG DX ORDERABLES * Differential, Automated (10/29/2020 12:50 AM EST) Neutrophil % 79.9 % [facility] Neutrophil Absolute 5.96 1.70 - 6.10 x10(3)/[facility] Lymph % 11.6 % [facility] Lymphocytes Abs 0.9 0.9 - 3.2 x10(3)/[facility] Monocyte % 8.0 % [facility] Monocyte Abs 0.6 0.3 - 0.9 x10(3)/[facility] Eos % 0.0 % [facility] Eosinophils Abs 0.0 0.0 - 0.4 x10(3)/[facility] Basophil % 0.1 % [facility] Baso Absolute 0.0 0.0 - 0.1 x10(3)/[facility] Immature Gran % 0.40 % [facility] Comment: Immature granulocytes(IG's)percentage and absolute count will include metamyelocytes, myelocytes, and promyelocytes. Blood smears from CBCs yielding IG's will be scanned manually for concordance. If this scan disagrees with the automated IG or if promyelocytes are noted, a manual differential will be performed. Immature Gran Absolute 0.03 0.00 - 0.04 x10(3)/[facility] Blood specimen (specimen) 10/29/2020 12:50 AM EST 10/29/2020 1:03 AM EST Narrative Resulting Agency Comment Spec In Lab Alex Oropeza MD HEMATOLOGY ORDERABLE S Performing Organization Address City/[facility]/ZIP Co de Phone Number [facility] [place] [address] * (ABNORMAL) Hemogram (10/29/2020 12:50 AM EST) White Blood Cell 7.5 4.0 - 9.5 x10(3)/mc L [facility] Red Blood Cell 3.64(L) 4.58 - 5.54 x10(6)/mc L [facility] Hemoglobin 11.2(L) 13.7 - 16.5 gm/dL [facility] Hematocrit 32.9(L) 40.5 - 48.5 % [facility] Mean Cell Volume 90.4 82.9 - 93.1 fL [facility] Mean Cell Hemoglobin 30.8 27.5 - 32.1 pg [facility] Mean Cell Hemoglobin Concentration 34.0 32.0 - 35.7 gm/dL [facility] Platelet 146 145 - 357 x10(3)/mc L [facility] RDW Standard Deviation 40.3 36.0 - 45.0 [facility] RDW coefficient of variation 12.2 11.4 - 13.8 % [facility] Mean Platelet Volume 11.4 7.6 - 12.9 fL [facility] NRBC% auto 0.0 % [facility] NRBC Absolute 0.000 0.000 - 0.000 x10(3)/mc L [facility] Blood specimen (specimen) 10/29/2020 12:50 AM EST 10/29/2020 1:03 AM EST Narrative Resulting Agency Comment Spec In Lab Alex Oropeza MD HEMATOLOGY ORDERABLE S Performing Organization Address City/[facility]/ZIP Co de Phone Number [facility] [place] [address] * (ABNORMAL) Basic Metabolic Panel (non-fasting) (10/29/2020 12:50 AM EST) Glucose 96 65 - 199 mg/dL [facility] Comment:Diabetes: >=200 mg/d L plus symptoms Blood Urea Nitrogen 15 10 - 20 mg/dL [facility] Creatinine 0.93 0.80 - 1.50 mg/dL [facility] Sodium 136 135 - 145 mmol/L [facility] Potassium 4.2 3.5 - 5.0 mmol/L [facility] Comment: Please note: ??Patients with WBC >100,000 may have falsely elevated Potassium levels. ??For accurate Potassium quantification in these patients send serum separator tube (gold top) for subsequent determinations. ??Contact the Clinical Chemistry Laboratory if there are any questions. Chloride 105 98 - 107 mmol/L [facility] Carbon Dioxide 25 22 - 31 mmol/L [facility] Anion Gap 6 5 - 15 mmol/L [facility] Calcium 7.8(L) 8.5 - 10.5 mg/dL [facility] Est Glomerular Filtration Rate 93 >=60 mL/min/1. 73 m?? [facility] Comment: This patient? s estimated glomerular [...] In Lab Radha Bolden MD CHEMISTRY ORDERABLES [facility] [place] [address] * (ABNORMAL) Phosphorus (10/29/2020 12:50 AM EST) [facility] Phosphorus 1.6(L) 2.5 - 4.5 mg/dL [facility] Blood specimen (specimen) 10/29/2020 12:50 AM EST 10/29/2020 1:03 AM EST Narrative Resulting Agency Comment Spec In Lab Radha Bolden MD CHEMISTRY ORDERABLES Performing Organization Address City/[facility]/ZIP Co de Phone Number [facility] [place] [address] * Magnesium (10/29/2020 12:50 AM EST) [facility] Magnesium 0.75 0.69 - 1.07 mmol/L [facility] Blood specimen (specimen) 10/29/2020 12:50 AM EST 10/29/2020 1:03 AM EST Narrative Resulting Agency Comment Spec In Lab Radha Bolden MD CHEMISTRY ORDERABLES Performing Organization Address City/[facility]/ZIP Co de Phone Number [facility] [place] [address] * Differential, Automated (10/28/2020 1:40 AM EST) [facility] Neutrophil % 78.6 % [facility] Neutrophil Absolute 5.94 1.70 - 6.10 x10(3)/[facility] Lymph % 12.6 % [facility] Lymphocytes Abs 1.0 0.9 - 3.2 x10(3)/[facility] Monocyte % 8.5 % [facility] Monocyte Abs 0.6 0.3 - 0.9 x10(3)/[facility] Eos % 0.0 % [facility] Eosinophils Abs 0.0 0.0 - 0.4 x10(3)/[facility] Basophil % 0.0 % [facility] Baso Absolute 0.0 0.0 - 0.1 x10(3)/[facility] Immature Gran % 0.30 % [facility] Comment: Immature granulocytes(IG's)percentage and absolute count will include metamyelocytes, myelocytes, and promyelocytes. Blood smears from CBCs yielding IG's will be scanned manually for concordance. If this scan disagrees with the automated IG or if promyelocytes are noted, a manual differential will be performed. Immature Gran Absolute 0.02 0.00 - 0.04 x10(3)/[facility] Blood specimen (specimen) 10/28/2020 1:40 AM EST 10/28/2020 1:46 AM EST Narrative Resulting Agency Comment Spec In Lab Alex Oropeza MD HEMATOLOGY ORDERABLE S [facility] [place] [address] * (ABNORMAL) Hemogram (10/28/2020 1:40 AM EST) White Blood Cell 7.6 4.0 - 9.5 x10(3)/mc L [facility] Red Blood Cell 3.71(L) 4.58 - 5.54 x10(6)/mc L [facility] Hemoglobin 11.3(L) 13.7 - 16.5 gm/dL [facility] Hematocrit 33.8(L) 40.5 - 48.5 % [facility] Mean Cell Volume 91.1 82.9 - 93.1 fL [facility] Mean Cell Hemoglobin 30.5 27.5 - 32.1 pg [facility] Mean Cell Hemoglobin Concentration 33.4 32.0 - 35.7 gm/dL [facility] Platelet 136(L) 145 - 357 x10(3)/ L [facility] RDW Standard Deviation 41.5 36.0 - 45.0 fL [facility] RDW coefficient of variation 12.5 11.4 - 13.8 % [facility] Mean Platelet Volume 11.3 7.6 - 12.9 fL [facility] NRBC% auto 0.0 % [facility] NRBC Absolute 0.000 0.000 - 0.000 x10(3)/mc L [facility] Blood specimen (specimen) 10/28/2020 1:40 AM EST 10/28/2020 1:46 AM EST Narrative Resulting Agency Comment Spec In Lab Alex Oropeza MD HEMATOLOGY ORDERABLE S Performing Organization Address City/[facility] Co de Phone Number [facility] [place] [address] * Phosphorus (10/28/2020 1:40 AM EST) Phosphorus 3.1 2.5 - 4.5 mg/dL [facility] Blood specimen (specimen) 10/28/2020 1:40 AM EST 10/28/2020 1:46 AM EST Narrative Resulting Agency Comment Spec In Lab Radha Bolden MD CHEMISTRY ORDERABLES Performing Organization Address [facility] Co de Phone Number [facility] [place] [address] * Magnesium (10/28/2020 1:40 AM EST) Magnesium 0.88 0.69 - 1.07 mmol/L [facility] Blood specimen (specimen) 10/28/2020 1:40 AM EST 10/28/2020 1:46 AM EST Narrative Resulting Agency Comment Spec In Lab Radha Bolden MD CHEMISTRY ORDERABLES Performing Organization Address [facility] Co de Phone Number [facility] [place] [address] * (ABNORMAL) Basic Metabolic Panel (non-fasting) (10/28/2020 1:40 AM EST) Glucose 137 65 - 199 mg/dL [facility] Comment:Diabetes: >=200 mg/d L plus symptoms Blood Urea Nitrogen 14 10 - 20 mg/dL [facility] Creatinine 0.90 0.80 - 1.50 mg/dL [facility] Sodium 138 135 - 145 mmol/L [facility] Potassium 4.6 3.5 - 5.0 mmol/L [facility] Comment: Please note: ??Patients with WBC >100,000 may have falsely elevated Potassium levels. ??For accurate Potassium quantification in these patients send serum separator tube (gold top) for subsequent determinations. ??Contact the Clinical Chemistry Laboratory if there are any questions. Chloride 108(H) 98 - 107 mmol/L [facility] Carbon Dioxide 24 22 - 31 mmol/L [facility] Anion Gap 6 5 - 15 mmol/L [facility] Calcium 7.7(L) 8.5 - 10.5 mg/dL [facility] Est Glomerular Filtration Rate 97 >=60 mL/min/1. 73 m?? [facility] Comment: This patient? s estimated glomerular [...] In Lab Radha Bolden MD CHEMISTRY ORDERABLES [facility] [place] [address] * XR Cervical Spine 2 or 3 [...] ? Electronically signed by: Tim Anthony MD, [facility] ([phone]), at 10/28/2020 3:05 AM Narrative 10/28/2020 3:05 [...] Hepatic Function Panel (10/27/2020 5:25 PM EST) [facility] Protein, Total 5.4(L) 6.1 - 8.0 gm/dL [facility] Albumin 3.5 3.2 - 5.2 gm/dL [facility] Aspartate Aminotransferase 80(H) 0 - 39 unit/L [facility] Alanine Aminotransferase 32 0 - 55 unit/L [facility] Alkaline Phosphatase 60 40 - 130 unit/L [facility] Bilirubin, Total 0.5 0.2 - 1.3 mg/dL [facility] Bilirubin, Direct 0.1 0.0 - 0.3 mg/dL [facility] Blood specimen (specimen) Venous Draw / Unknown 10/27/2020 5:25 PM EST 10/27/2020 6:19 PM EST Narrative Resulting Agency Comment Spec In Lab Neida Omalley MD CHEMISTRY ORDERABLES Performing Organization Address City/[facility] Co de Phone Number [facility] [place] [address] * Potassium (10/27/2020 5:25 PM EST) [facility] Potassium 4.8 3.5 - 5.0 mmol/L [facility] Comment: Please note: ??Patients with [...] Medellin MD CHEMISTRY ORDERABLES Performing Organization Address City/[facility]/ZIP Co de Phone Number [facility] [place] [address] * Magnesium (10/27/2020 5:25 PM EST) Magnesium 0.91 0.69 - 1.07 mmol/L [facility] Blood specimen (specimen) 10/27/2020 5:25 PM EST 10/27/2020 6:15 PM EST Narrative Resulting Agency Comment Spec In Lab Adrienne Medellin MD CHEMISTRY ORDERABLES [facility] [place] [address] * XR Chest One View (10/27/2020 2:29 [...] ? Electronically signed by: Allen García MD, [facility] ([phone]), at 10/28/2020 7:32 AM Narrative 10/28/2020 7:32 [...] below. Electronically signed by: Allen García MD, [facility]([phone]), at 10/28/2020 7:32 AM Adrienne Medellin MD IMG DX ORDERABLES * (ABNORMAL) Differential, Automated (10/27/2020 1:25 PM EST) Neutrophil % 92.4 % [facility] Neutrophil Absolute 8.31(H) 1.70 - 6.10 x10(3)/mc L [facility] Lymph % 5.3 % [facility] Lymphocytes Abs 0.5(L) 0.9 - 3.2 x10(3)/mc L [facility] Monocyte % 2.0 % [facility] Monocyte Abs 0.2(L) 0.3 - 0.9 x10(3)/mc L [facility] Eos % 0.0 % [facility] Eosinophils Abs 0.0 0.0 - 0.4 x10(3)/mc L [facility] Basophil % 0.1 % [facility] Baso Absolute 0.0 0.0 - 0.1 x10(3)/mc L [facility] Immature Gran % 0.20 % [facility] Comment: Immature granulocytes(IG's)percentage and absolute count will include metamyelocytes, myelocytes, and promyelocytes. Blood smears from CBCs yielding IG's will be scanned manually for concordance. If this scan disagrees with the automated IG or if promyelocytes are noted, a manual differential will be performed. Immature Gran Absolute 0.02 0.00 - 0.04 x10(3)/mc L [facility] Blood specimen (specimen) 10/27/2020 1:25 PM EST 10/27/2020 1:29 PM EST Narrative Resulting Agency Comment Spec In Lab Tyesha Lopez MD HEMATOLOGY ORDERABL ES [facility] [place] [address] * (ABNORMAL) Hemogram (10/27/2020 1:25 PM EST) White Blood Cell 9.0 4.0 - 9.5 x10(3)/ L [facility] Red Blood Cell 3.84(L) 4.58 - 5.54 x10(6)/mc L [facility] Hemoglobin 11.7(L) 13.7 - 16.5 gm/dL [facility] Hematocrit 35.4(L) 40.5 - 48.5 % [facility] Mean Cell Volume 92.2 82.9 - 93.1 fL [facility] Mean Cell Hemoglobin 30.5 27.5 - 32.1 pg [facility] Mean Cell Hemoglobin Concentration 33.1 32.0 - 35.7 gm/dL [facility] Platelet 169 145 - 357 x10(3)/mc L [facility] RDW Standard Deviation 42.6 36.0 - 45.0 fL [facility] RDW coefficient of variation 12.6 11.4 - 13.8 % [facility] Mean Platelet Volume 10.9 7.6 - 12.9 fL [facility] NRBC% auto 0.0 % [facility] NRBC Absolute 0.000 0.000 - 0.000 x10(3)/mc L [facility] Blood specimen (specimen) 10/27/2020 1:25 PM EST 10/27/2020 1:29 PM EST Narrative Resulting Agency Comment Spec In Lab Tyesha Lopez MD HEMATOLOGY ORDERABL ES Performing Organization Address [facility] Co de Phone Number [facility] [place] [address] * Phosphorus (10/27/2020 1:25 PM EST) Phosphorus 3.6 2.5 - 4.5 mg/dL [facility] Blood specimen (specimen) 10/27/2020 1:25 PM EST 10/27/2020 1:29 PM EST Narrative Resulting Agency Comment Spec In Lab Adrienne Medellin MD CHEMISTRY ORDERABLES Performing Organization Address [facility] Co de Phone Number [facility] [place] [address] * (ABNORMAL) Magnesium (10/27/2020 1:25 PM EST) Magnesium 0.61(L) 0.69 - 1.07 mmol/L [facility] Blood specimen (specimen) 10/27/2020 1:25 PM EST 10/27/2020 1:29 PM EST Narrative Resulting Agency Comment Spec In Lab Adrienne Medellin MD CHEMISTRY ORDERABLES Performing Organization Address [facility] Co de Phone Number [facility] [place] [address] * (ABNORMAL) Basic Metabolic Panel (non-fasting) (10/27/2020 1:25 PM EST) Glucose 117 65 - 199 mg/dL [facility] Comment:Diabetes: >=200 mg/d L plus symptoms Blood Urea Nitrogen 13 10 - 20 mg/dL [facility] Creatinine 1.08 0.80 - 1.50 mg/dL [facility] Sodium 137 135 - 145 mmol/L [facility] Potassium 5.3(H) 3.5 - 5.0 mmol/L [facility] Comment: result rechecked-co Please note: ??Patients with WBC >100,000 may have falsely elevated Potassium levels. ??For accurate Potassium quantification in these patients send serum separator tube (gold top) for subsequent determinations. ??Contact the Clinical Chemistry Laboratory if there are any questions. Chloride 108(H) 98 - 107 mmol/L [facility] Carbon Dioxide 21(L) 22 - 31 mmol/L [facility] Anion Gap 8 5 - 15 mmol/L [facility] Calcium 7.6(L) 8.5 - 10.5 mg/dL [facility] Est Glomerular Filtration Rate 78 >=60 mL/min/1. 73 m?? [facility] Comment: This patient? s estimated glomerular [...] In Lab Adrienne Medellin MD CHEMISTRY ORDERABLES [facility] [place] [address] * XR O-Arm No Rad <1Hr - OR Use (10/27/2020 12:00 PM EST) Anatomical Region Laterality Modality N/A Radio Fluoroscop y Impressions 10/27/2020 12:52 PM EST Dose report for intraoperative imaging. Thank you for letting us participate in the care of this patient. For questions regarding this report, please contact the number below. ? Electronically signed by: Delfina Badillo [facility] ([phone]), at 10/27/2020 12:52 PM Narrative 10/27/2020 12:52 [...] contact the number below. Electronically signed by: RANJIT Salas [facility]([phone]), at 10/27/2020 12:52 PM Adrienne Medellin MD IMG FLUORO ORDERABLE S * (ABNORMAL) BLOOD GAS 2 ARTERIAL (10/27/2020 11:29 AM EST) pH, Arterial 7.31(L) 7.35 - 7.45 [facility] PCO2, Arterial 41 35 - 45 mmHg [facility] PO2, Arterial 153(H) 85 - 104 mmHg [facility] Bicarbonate, Arterial 20.4 20.0 - 26.0 mmol/L [facility] Base Excess, Arterial -6.2(L) -3.0 - 3.0 mmol/L [facility] Hgb Blood Gas 13.0(L) 13.7 - 16.5 gm/dL [facility] Oxyhemoglobin, Arterial 97.6(H) 94.0 - 97.0 % [facility] Carboxyhemoglob in, Arterial 0.9 % [facility] Comment: Nonsmokers: 0.5-1.5% COHB Smokers: Variable, but usually less than 10% Toxic: 20-30% COHB Lethal: Greater than 60% COHB Methemoglobin, Arterial 0.3 <=1.5 % [facility] Na Whole Blood 133(L) 135 - 145 mmol/L [facility] K Whole Blood 5.1(H) 3.5 - 5.0 mmol/L [facility] Comment: Please note: Patients with WBC >100,000 may have falsely elevated Potassium levels. Contact the Clinical Chemistry Laboratory if there are any questions. ICa Whole Blood 1.09(L) 1.15 - 1.33 mmol/L [facility] Comment: Note: ??Total bilirubin higher than 20 mg/dL may lead to falsely low ionized calcium. CL Whole Blood 110(H) 98 - 107 mmol/L [facility] Gluc Whole Bld 105 65 - 199 mg/dL [facility] Comment:Diabetes: >=200 mg/d L plus symptoms. Lactate WB 1.4 0.5 - 2.2 mmol/L [facility] FIO2 Art 42 % [facility] PF Ratio Art 364 [facility] Temp Art 35.9 Celsius [facility] Blood specimen (specimen) 10/27/2020 11:29 AM EST 10/27/2020 11:29 AM EST Adrienne Medellin MD POINT OF CARE TEST O RDERABLES [facility] [place] [address] * (ABNORMAL) BLOOD GAS 2 ARTERIAL (10/27/2020 10:27 AM EST) pH, Arterial 7.32(L) 7.35 - 7.45 [facility] PCO2, Arterial 38 35 - 45 mmHg [facility] PO2, Arterial 131(H) 85 - 104 mmHg [facility] Bicarbonate, Arterial 19.8(L) 20.0 - 26.0 mmol/L [facility] Base Excess, Arterial -6.6(L) -3.0 - 3.0 mmol/L [facility] Hgb Blood Gas 13.0(L) 13.7 - 16.5 gm/dL [facility] Oxyhemoglobin, Arterial 97.5(H) 94.0 - 97.0 % [facility] Carboxyhemoglob in, Arterial 0.8 % [facility] Comment: Nonsmokers: 0.5-1.5% COHB Smokers: Variable, but usually less than 10% Toxic: 20-30% COHB Lethal: Greater than 60% COHB Methemoglobin, Arterial 0.3 <=1.5 % [facility] Na Whole Blood 134(L) 135 - 145 mmol/L [facility] K Whole Blood 4.6 3.5 - 5.0 mmol/L [facility] Comment: Please note: Patients with WBC >100,000 may have falsely elevated Potassium levels. Contact the Clinical Chemistry Laboratory if there are any questions. ICa Whole Blood 1.11(L) 1.15 - 1.33 mmol/L [facility] Comment: Note: ??Total bilirubin higher than 20 mg/dL may lead to falsely low ionized calcium. CL Whole Blood 110(H) 98 - 107 mmol/L [facility] Gluc Whole Bld 101 65 - 199 mg/dL [facility] Comment:Diabetes: >=200 mg/d L plus symptoms. Lactate WB 1.5 0.5 - 2.2 mmol/L [facility] FIO2 Art 42 % [facility] PF Ratio Art 312 [facility] Temp Art 35.1 Celsius [facility] Blood specimen (specimen) 10/27/2020 10:27 AM EST 10/27/2020 10:27 AM EST Adrienne Medellin MD POINT OF CARE TEST O RDERABLES [facility] [place] [address] * (ABNORMAL) BLOOD GAS 2 ARTERIAL (10/27/2020 9:28 AM EST) pH, Arterial 7.29(Crit ical) 7.35 - 7.45 [facility] Comment: Noted by surveyor instrument assistant. Critical notified to Dr. Mariana Rojas by surveyor instrument assistant immediately following run time. PCO2, Arterial 40 35 - 45 mmHg [facility] PO2, Arterial 171(H) 85 - 104 mmHg [facility] Bicarbonate, Arterial 19.6(L) 20.0 - 26.0 mmol/L [facility] Base Excess, Arterial -7.5(L) -3.0 - 3.0 mmol/L [facility] Hgb Blood Gas 13.5(L) 13.7 - 16.5 gm/dL [facility] Oxyhemoglobin, Arterial 98.0(H) 94.0 - 97.0 % [facility] Carboxyhemoglob in, Arterial 0.8 % [facility] Comment: Nonsmokers: 0.5-1.5% COHB Smokers: Variable, but usually less than 10% Toxic: 20-30% COHB Lethal: Greater than 60% COHB Methemoglobin, Arterial 0.3 <=1.5 % [facility] Na Whole Blood 135 135 - 145 mmol/L [facility] K Whole Blood 4.3 3.5 - 5.0 mmol/L [facility] Comment: Please note: Patients with WBC >100,000 may have falsely elevated Potassium levels. Contact the Clinical Chemistry Laboratory if there are any questions. ICa Whole Blood 1.15 1.15 - 1.33 mmol/L [facility] Comment: Note: ??Total bilirubin higher than 20 mg/dL may lead to falsely low ionized calcium. CL Whole Blood 108(H) 98 - 107 mmol/L [facility] Gluc Whole Bld 103 65 - 199 mg/dL [facility] Comment:Diabetes: >=200 mg/d L plus symptoms. Lactate WB 2.2 0.5 - 2.2 mmol/L [facility] FIO2 Art 43 % [facility] PF Ratio Art 398 [facility] Temp Art 34.7 Celsius [facility] Blood specimen (specimen) 10/27/2020 9:28 AM EST 10/27/2020 9:28 AM EST Adrienne Medellin MD POINT OF CARE TEST O VISHAL Performing Organization Address [facility] Co de Phone Number [facility] [place] [address] * POCT Glucose (10/27/2020 6:19 AM EST) Glucose, POC 101 65 - 199 mg/dL [facility] Comment: Supplemental ranges: <140 mg/dL before meals <180 mg/dL all other times of the day Blood specimen (specimen) 10/27/2020 6:19 AM EST 10/27/2020 6:19 AM EST Adrienne Medellin MD POINT OF CARE TEST O VISHAL Performing Organization Address City/[facility]/ZIP Co de Phone Number [facility] [place] [address] * MRI Cervical Spine wo Contrast (Generic) [...] ? 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 C6-C7 disc [...] below. Electronically signed by: Allen García MD, [facility]([phone]), at 10/27/2020 7:01 AM Ovi Ramirez MD [...] ? Electronically signed by: Allen García MD, [facility] ([phone]), at 10/27/2020 5:17 AM Narrative 10/27/2020 5:17 [...] below. Electronically signed by: Allen García MD, [facility]([phone]), at 10/27/2020 5:17 AM Ovi Ramirez MD [...] ? Electronically signed by: Allen García MD, [facility] ([phone]), at 10/27/2020 5:17 AM Narrative 10/27/2020 5:17 [...] below. Electronically signed by: Allen García MD, [facility]([phone]), at 10/27/2020 5:17 AM Ovi Ramirez MD [...] ? Electronically signed by: Allen García MD, [facility] ([phone]), at 10/27/2020 5:17 AM Narrative 10/27/2020 5:17 [...] below. Electronically signed by: Allen García MD, [facility]([phone]), at 10/27/2020 5:17 AM Ovi Ramirez MD [...] ? Electronically signed by: Allen García MD, [facility] ([phone]), at 10/27/2020 5:17 AM Narrative 10/27/2020 5:17 [...] below. Electronically signed by: Allen García MD, [facility]([phone]), at 10/27/2020 5:17 AM Ovi Ramirez MD [...] ? Electronically signed by: Allen García MD, [facility] ([phone]), at 10/27/2020 5:17 AM Narrative 10/27/2020 5:17 [...] below. Electronically signed by: Allen García MD, [facility]([phone]), at 10/27/2020 5:17 AM Ovi Ramirez MD [...] ? Electronically signed by: Allen García MD, [facility] ([phone]), at 10/27/2020 5:17 AM Narrative 10/27/2020 5:17 [...] below. Electronically signed by: Allen García MD, [facility]([phone]), at 10/27/2020 5:17 AM Ovi Ramirez MD [...] ? Electronically signed by: Allen García MD, [facility] ([phone]), at 10/27/2020 5:17 AM Narrative 10/27/2020 5:17 [...] below. Electronically signed by: Allen García MD, [facility]([phone]), at 10/27/2020 5:17 AM Ovi Ramirez MD [...] ? Electronically signed by: Allen García MD, [facility] ([phone]), at 10/27/2020 5:17 AM Narrative 10/27/2020 5:17 [...] below. Electronically signed by: Allen García MD, [facility]([phone]), at 10/27/2020 5:17 AM Ovi Ramirez MD [...] ? Electronically signed by: Allen García MD, [facility] ([phone]), at 10/27/2020 5:17 AM Narrative 10/27/2020 5:17 [...] below. Electronically signed by: Allen García MD, [facility]([phone]), at 10/27/2020 5:17 AM Ovi Ramirez MD [...] ? Electronically signed by: Allen García MD, [facility] ([phone]), at 10/27/2020 5:17 AM Narrative 10/27/2020 5:17 [...] below. Electronically signed by: Allen García MD, [facility]([phone]), at 10/27/2020 5:17 AM Ovi Ramirez MD [...] ? Electronically signed by: Allen García MD, [facility] ([phone]), at 10/27/2020 5:17 AM Narrative 10/27/2020 5:17 [...] below. Electronically signed by: Allen García MD, [facility]([phone]), at 10/27/2020 5:17 AM Sergio Dhaliwal MD [...] ? Electronically signed by: Allen García MD, [facility] ([phone]), at 10/27/2020 5:17 AM Narrative 10/27/2020 5:17 [...] below. Electronically signed by: Allen García MD, [facility]([phone]), at 10/27/2020 5:17 AM Sergio Dhaliwal MD [...] ? Electronically signed by: Allen García MD, [facility] ([phone]), at 10/27/2020 5:17 AM Narrative 10/27/2020 5:17 [...] below. Electronically signed by: Allen García MD, [facility]([phone]), at 10/27/2020 5:17 AM Sergio Dhaliwal MD IMG DX ORDERABLES * (ABNORMAL) BLOOD GAS 2 ARTERIAL (10/27/2020 12:25 AM EST) pH, Arterial 7.33(L) 7.35 - 7.45 [facility] PCO2, Arterial 39 35 - 45 mmHg [facility] PO2, Arterial 75(L) 85 - 104 mmHg [facility] Bicarbonate, Arterial 19.9(L) 20.0 - 26.0 mmol/L [facility] Base Excess, Arterial -6.0(L) -3.0 - 3.0 mmol/L [facility] Hgb Blood Gas 13.7 13.7 - 16.5 gm/dL [facility] Oxyhemoglobin, Arterial 92.4(L) 94.0 - 97.0 % [facility] Carboxyhemoglob in, Arterial 0.4 % [facility] Comment: Nonsmokers: 0.5-1.5% COHB Smokers: Variable, but usually less than 10% Toxic: 20-30% COHB Lethal: Greater than 60% COHB Methemoglobin, Arterial 0.3 <=1.5 % [facility] Na Whole Blood 135 135 - 145 mmol/L [facility] K Whole Blood 3.9 3.5 - 5.0 mmol/L [facility] Comment: Please note: Patients with WBC >100,000 may have falsely elevated Potassium levels. Contact the Clinical Chemistry Laboratory if there are any questions. ICa Whole Blood 1.19 1.15 - 1.33 mmol/L [facility] Comment: Note: ??Total bilirubin higher than 20 mg/dL may lead to falsely low ionized calcium. CL Whole Blood 104 98 - 107 mmol/L [facility] Gluc Whole Bld 116 65 - 199 mg/dL [facility] Comment:Diabetes: >=200 mg/d L plus symptoms. Lactate WB 2.4(H) 0.5 - 2.2 mmol/L [facility] Blood specimen (specimen) 10/27/2020 12:25 AM EST 10/27/2020 12:25 AM EST Ovi Ramirez MD POINT OF CARE TEST O RDERABLES [facility] [place] [address] * (ABNORMAL) BLOOD GAS 2 VENOUS (10/27/2020 12:14 AM EST) pH, Venous 7.31(L) 7.32 - 7.42 [facility] PCO2, Venous 40(L) 41 - 51 mmHg [facility] PO2, Venous 65(H) 25 - 40 mmHg [facility] Bicarbonate, Venous 19.3 mmol/L [facility] Base Excess, Venous -7.0 mmol/L [facility] Hgb Blood Gas 13.2(L) 13.7 - 16.5 gm/dL [facility] Oxyhemoglobin, Venous 88.7 % [facility] Carboxyhemoglob in, Venous 0.7 % [facility] Comment: Nonsmokers: 0.5-1.5% COHB Smokers: Variable, but usually less than 10% Toxic: 20-30% COHB Lethal: Greater than 60% COHB Methemoglobin, Venous 0.4 <=1.5 % [facility] Na Whole Blood 136 135 - 145 mmol/L [facility] K Whole Blood 3.9 3.5 - 5.0 mmol/L [facility] Comment: Please note: Patients with WBC >100,000 may have falsely elevated Potassium levels. Contact the Clinical Chemistry Laboratory if there are any questions. ICa Whole Blood 1.15 1.15 - 1.33 mmol/L [facility] Comment: Note: ??Total bilirubin higher than 20 mg/dL may lead to falsely low ionized calcium. CL Whole Blood 106 98 - 107 mmol/L [facility] Gluc Whole Bld 109 65 - 199 mg/dL [facility] Comment:Diabetes: >=200 mg/d L plus symptoms Lactate WB 2.5(H) 0.5 - 2.2 mmol/L [facility] Blood Gas Source Venous [facility] Blood specimen (specimen) 10/27/2020 12:14 AM EST 10/27/2020 12:14 AM EST Ovi Ramirez MD POINT OF CARE TEST O RDERABLES [facility] [place] [address] * Urinalysis Microscopic Exam (10/26/2020 11:59 PM EST) RBC, Urine 2 0 - 3 /HPF [facility] WBC, Urine 1 0 - 3 /HPF [facility] Squamous Epithelial Cells Raw Data, Urine 2 <=4 /HPF [facility] Hyaline Casts, Urine 1 0 - 2 /LPF [facility] First stream urine specimen (specimen) 10/26/2020 11:59 PM EST 10/27/2020 12:26 AM EST Narrative Resulting Agency Comment Spec In Lab Adrienne Medellin MD URINE ORDERABLES [facility] [place] [address] * (ABNORMAL) Rapid Drug Screen w/o Confirmation, Urine (10/26/2020 11:59 PM EST) Barbiturates Screen, Urine None Detected None Detected [facility] Comment: The barbiturate screen detects barbiturates [...] Benzodiazepines Screen, Urine None Detected None Detected [facility] Comment: The benzodiazepines screen detects benzodiazepines [...] Cocaine Screen, Urine None Detected None Detected [facility] Comment: The cocaine metabolites screen detects benzoylecgonine (Cocaine Metabolite) at concentrations >150 ng/mL. A ? Presumptive Positive? result indicates that the screening result was positive but has not yet been confirmed by a highly-specific method. As with any screen, occasional false positive results from cross-reacting substances may occur. Not for Medico-Legal Purposes. Methadone Metabolites Screen, Urine None Detected None Detected [facility] Comment: The methadone metabolite screen detects EDDP (major methadone metabolite) at concentrations >100 ng/mL. A ? Presumptive Positive? result indicates that the screening result was positive but has not yet been confirmed by a highly-specific method. As with any screen, occasional false positive results from cross-reacting substances may occur. Not for Medico-Legal Purposes. Opiate Screen, Urine None Detected None Detected [facility] Comment: The opiates screen detects opiates [...] Cannabinoid Screen, Urine Presumptive Pos(A) None Detected [facility] Comment: The marijuana metabolites screen detects the THC metabolite (20-uls-1-carboxy-delta 9-THC) at concentrations >20 ng/mL. A ? Presumptive Positive? result indicates that the screening result was positive but has not yet been confirmed by a highly-specific method. As with any screen, occasional false positive results from cross-reacting substances may occur. Not for Medico-Legal Purposes. Oxycodone Screen, Urine None Detected None Detected [facility] Comment: The oxycodone screen detects oxycodone and oxymorphone at concentrations >100 ng/mL. A ? Presumptive Positive? result indicates that the screening result was positive but has not yet been confirmed by a highly-specific method. As with any screen, occasional false positive results from cross-reacting substances may occur. Not for Medico-Legal Purposes. Buprenorphine Screen, Urine None Detected None Detected [facility] Comment: The buprenorphine screen detects buprenorphine at concentrations >5 ng/mL. A ? Presumptive Positive? result indicates that the screening result was positive but has not yet been confirmed by a highly-specific method. As with any screen, occasional false positive results from cross-reacting substances may occur. Not for Medico-Legal Purposes. Fentanyl Screen, Urine None Detected None Detected [facility] Comment: The fentanyl screen detects fentanyl at concentrations >2 ng/mL. A ? Presumptive Positive? result indicates that the screening result was positive but has not yet been confirmed by a highly-specific method. As with any screen, occasional false positive results from cross-reacting substances may occur. Not for Medico-Legal Purposes. Tricyclics Screen, Urine None Detected None Detected [facility] Comment: The tricyclics screen detects tricyclic [...] Purposes. Ethanol Screen, Urine Positive(A) None Detected [facility] Comment:This urine ethanol a ssay detects ethanol at concentrations >/= 100 mg/L. Amphetamines Screen, Urine None Detected None Detected [facility] Comment: The amphetamine screen detects d-amphetamine and d-methamphetamine at concentrations >300 ng/mL. A ? Presumptive Positive? result indicates that the screening result was positive but has not yet been confirmed by a highly-specific method. As with any screen, occasional false positive results from cross-reacting substances may occur. Not for Medico-Legal Purposes. Adulterants Screen, Urine None Detected None Detected [facility] Comment: No adulteration or dilution of this urine sample was detected. All urine samples submitted for urine drugs of abuse analysis are tested for creatinine concentration, pH, and for the presence of oxidants, nitrites, and chromate. Urine specimen (specimen) 10/26/2020 11:59 PM EST 10/27/2020 12:26 AM EST Narrative Resulting Agency Comment Spec In Lab Adrienne Medellin MD CHEMISTRY ORDERABLES [facility] [place] [address] * (ABNORMAL) Urinalysis with reflex Culture (10/26/2020 11:59 PM EST) Glucose, Urine Dipstick Negative Negative mg/dL [facility] Protein, Urine Dipstick Trace(A) Negative mg/dL [facility] Bilirubin, Urine Dipstick Negative Negative mg/dL [facility] Comment: Clinical correlation required for positive Urine Bilirubin results as false positive may occur with some drugs and drug related products. If a false positive is suspected a serum total bilirubin should be considered if clinically indicated. Urobilinogen, Urine Dipstick Normal Normal mg/dL [facility] pH, Urn (dipstick) 5.5 5.0 - 8.0 [facility] Blood, Urine Dipstick Large(A) Negative mg/dL [facility] Ketone, Urine Dipstick Negative Negative mg/dL [facility] Nitrite, Urine Dipstick Negative Negative [facility] Leukocytes, Urine Dipstick Negative Negative [facility] Appearance, Urine Dipstick Clear Clear [facility] Specific [place] Urine Automated >=1.030(A) 1.006 - 1.030 [facility] Color, Urine Dipstick Yellow Yellow [facility] Reflex to Culture No [facility] First stream urine specimen (specimen) 10/26/2020 11:59 PM EST 10/27/2020 12:26 AM EST Narrative Resulting Agency Comment Spec In Lab Luann Hartley MD URINE ORDERABLES [facility] [place] [address] * Rapid Drug Screen, Urine (LALITA Request) (10/26/2020 11:59 PM EST) LALITA Conf Requested No [facility] Comment: Collection date/time has been modified to: 23:59:00. ??Previous collection date/time: 23:19:00. Corrected from No [NA] on 10/27/20 0:26:49 EST by Maria E Moses LALITA Requested See Comment [facility] Comment: Refer to Rapid Drug Screen w/o Confirmation, Urine for results. Collection date/time has been modified to: 23:59:00. ??Previous collection date/time: 23:19:00. Corrected from See Comment [NA] on 10/27/20 0:26:49 EST by Maria E Moses Urine specimen (specimen) 10/26/2020 11:59 PM EST 10/27/2020 12:26 AM EST Narrative Resulting Agency Comment Spec In Lab Luann Hartley MD URINE ORDERABLES [facility] [place] [address] * CT Angiogram Carotids (10/26/2020 11:46 PM [...] ? Electronically signed by: Allen García MD, [facility] ([phone]), at 10/27/2020 12:38 AM Narrative 10/27/2020 12:38 AM EST EXAMINATION: REQUEST FOR 2ND READ CT HEAD AND SPINE, CT ANGIOGRAM CAROTIDS CLINICAL HISTORY: trauma found down; What Modality is the exam? CT Scan; Body Part (please add comments as necessary): Head and C spine; Sending Institution [facility]; Date of exam 20201026; I [...] comments as necessary): [facility]; I believe a [...] the number below. ? Electronically signed by: Aleln García MD, [facility] ([phone]), at 10/27/2020 12:38 AM Narrative 10/27/2020 12:38 AM EST EXAMINATION: REQUEST FOR 2ND READ CT HEAD AND SPINE, CT ANGIOGRAM CAROTIDS CLINICAL HISTORY: trauma found down; What Modality is the exam? CT Scan; Body Part (please add comments as necessary): Head and C spine; Sending Institution [facility]; Date of exam 20201026; I [...] comments as necessary): Head and C spine; [facility]; Date of exam 20201026; I believe a [...] below. Electronically signed by: Allen García MD, [facility]([phone]), at 10/27/2020 12:38 AM Luann Hartley MD IMG OUTSIDE INTERPRE [...] ? Electronically signed by: Allen García MD, [facility] ([phone]), at 10/27/2020 2:07 AM Narrative 10/27/2020 2:07 AM EST EXAMINATION: REQUEST FOR 2ND READ CT CHEST ABDOMEN PELVIS INSTITUTION WHERE STUDY PERFORMED: [facility] DATE AND TIME OF STUDY: 10/26/2020 20:52 CLINICAL HISTORY: trauma found down; What Modality is the exam? CT Scan; Body Part (please add comments as necessary): Chest abdomen pelvis; Sending Institution [facility]; Date of exam 20201026; I [...] CHEST ABDOMEN PELVIS INSTITUTION WHERE STUDY PERFORMED: [facility] DATE AND TIME OF STUDY: 10/26/2020 20:52 CLINICAL HISTORY: trauma found down; What Modality is the exam? CT Scan;Body Part (please add comments as necessary): Chest abdomen pelvis; Sending Institution [facility]; Date of exam 20201026; I [...] Lactate WB 2.7(H) 0.5 - 2.2 mmol/L [facility] Blood specimen (specimen) 10/26/2020 11:31 PM EST 10/26/2020 11:31 PM EST Luann Hartley MD CHEMISTRY ORDERABLES [facility] [place] [address] * ABORH Recheck Status (10/26/2020 11:10 PM EST) ABORH Recheck Order Order Placed [facility] ABORH Type Recheck Not Performed [facility] Blood specimen (specimen) 10/26/2020 11:10 PM EST 10/26/2020 11:28 PM EST Narrative Resulting Agency Comment Spec In Lab Adrienne Medellin MD BLOOD BANK LAB ORDER LORNA Performing Organization Address City/[facility]/ZIP Co de Phone Number [facility] [place] [address] * Gold Tube HOLD (10/26/2020 11:10 PM EST) Gold Hold Sample in lab. [facility] Blood specimen (specimen) Venous Draw / Unknown 10/26/2020 11:10 PM EST 10/26/2020 11:34 PM EST Adrienne Medellin MD CHEMISTRY ORDERABLES Performing Organization Address City/[facility]/ZIP Co de Phone Number [facility] [place] [address] * Antibody screen (10/26/2020 11:10 PM EST) Ab Screen Interp Negative [facility] Expires at [id number] on: 10/29/2020 [facility] Blood specimen (specimen) 10/26/2020 11:10 PM EST 10/26/2020 11:28 PM EST Narrative Resulting Agency Comment Spec In Lab Adrienne Medellin MD BLOOD BANK LAB ORDER LORNA [facility] [place] [address] * ABO/Rh Typing (10/26/2020 11:10 PM EST) ABORH Type AB Pos [facility] Blood specimen (specimen) 10/26/2020 11:10 PM EST 10/26/2020 11:28 PM EST Narrative Resulting Agency Comment Spec In Lab Adrienne Medellin MD BLOOD BANK LAB ORDER LORNA [facility] [place] [address] * (ABNORMAL) Differential, Automated (10/26/2020 11:10 PM EST) Neutrophil % 85.4 % [facility] Neutrophil Absolute 11.41(H) 1.70 - 6.10 x10(3)/mc L [facility] Lymph % 9.3 % [facility] Lymphocytes Abs 1.2 0.9 - 3.2 x10(3)/mc L [facility] Monocyte % 4.3 % [facility] Monocyte Abs 0.6 0.3 - 0.9 x10(3)/mc L [facility] Eos % 0.3 % [facility] Eosinophils Abs 0.0 0.0 - 0.4 x10(3)/mc L [facility] Basophil % 0.2 % [facility] Baso Absolute 0.0 0.0 - 0.1 x10(3)/mc L [facility] Immature Gran % 0.50 % [facility] Comment: Immature granulocytes(IG's)percentage and absolute count will include metamyelocytes, myelocytes, and promyelocytes. Blood smears from CBCs yielding IG's will be scanned manually for concordance. If this scan disagrees with the automated IG or if promyelocytes are noted, a manual differential will be performed. Immature Gran Absolute 0.07(H) 0.00 - 0.04 x10(3)/mc L [facility] Blood specimen (specimen) 10/26/2020 11:10 PM EST 10/26/2020 11:31 PM EST Narrative Resulting Agency Comment Spec In Lab Adrienne Medellin MD HEMATOLOGY ORDERABLE S Performing Organization Address City/State/[facility] Co de Phone Number [facility] [place] [address] * (ABNORMAL) Hemogram (10/26/2020 11:10 PM EST) White Blood Cell 13.4(H) 4.0 - 9.5 x10(3)/mc L [facility] Red Blood Cell 4.08(L) 4.58 - 5.54 x10(6)/mc L [facility] Hemoglobin 12.4(L) 13.7 - 16.5 gm/dL [facility] Hematocrit 36.7(L) 40.5 - 48.5 % [facility] Mean Cell Volume 90.0 82.9 - 93.1 fL [facility] Mean Cell Hemoglobin 30.4 27.5 - 32.1 pg [facility] Mean Cell Hemoglobin Concentration 33.8 32.0 - 35.7 gm/dL [facility] Platelet 188 145 - 357 x10(3)/mc L [facility] RDW Standard Deviation 41.0 36.0 - 45.0 [facility] RDW coefficient of variation 12.4 11.4 - 13.8 % [facility] Mean Platelet Volume 10.9 7.6 - 12.9 fL [facility] NRBC% auto 0.0 % [facility] NRBC Absolute 0.000 0.000 - 0.000 x10(3)/mc L [facility] Blood specimen (specimen) 10/26/2020 11:10 PM EST 10/26/2020 11:31 PM EST Narrative Resulting Agency Comment Spec In Lab Adrienne Medellin MD HEMATOLOGY ORDERABLE S [facility] [place] [address] * (ABNORMAL) Ethanol Level (10/26/2020 11:10 PM [...] Hartley MD CHEMISTRY ORDERABLES Performing Organization Address [facility] de Phone Number [facility] [place] [address] * (ABNORMAL) APTT (10/26/2020 11:10 PM EST) Partial Thromboplastin Time 22(L) 25 - 37 sec [facility] Comment: Decreased clotting times may be [...] MD HEMATOLOGY ORDERABLE S Performing Organization Address [facility] Co de Phone Number [facility] [place] [address] * Prothrombin Time (10/26/2020 11:10 PM EST) Prothrombin Time 11.1 9.4 - 12.5 sec [facility] International Normalization Ratio 1.0 [facility] Comment: An INR <2.0 indicates [...] Lab Luann Hartley MD HEMATOLOGY ORDERABLE S [facility] [place] [address] * (ABNORMAL) Basic Metabolic Panel (non-fasting) (10/26/2020 11:10 PM EST) Glucose 133 65 - 199 mg/dL [facility] Comment:Diabetes: >=200 mg/d L plus symptoms Blood Urea Nitrogen 15 10 - 20 mg/dL [facility] Creatinine 1.43 0.80 - 1.50 mg/dL [facility] Sodium 138 135 - 145 mmol/L [facility] Potassium 4.1 3.5 - 5.0 mmol/L [facility] Comment: Please note: ??Patients with WBC >100,000 may have falsely elevated Potassium levels. ??For accurate Potassium quantification in these patients send serum separator tube (gold top) for subsequent determinations. ??Contact the Clinical Chemistry Laboratory if there are any questions. Chloride 104 98 - 107 mmol/L [facility] Carbon Dioxide 20(L) 22 - 31 mmol/L [facility] Anion Gap 14 5 - 15 mmol/L [facility] Calcium 8.4(L) 8.5 - 10.5 mg/dL [facility] Est Glomerular Filtration Rate 56(L) >=60 mL/min/1. 73 m?? [facility] Comment: This patient? s estimated glomerular [...] In Lab Luann Hartley MD CHEMISTRY ORDERABLES [facility] [place] [address] * COVID-19 PCR (10/26/2020 10:58 PM EST) SARS-CoV-2 RNA (Rapid) Not Detected Not Detected [facility] Comment: This result should be interpreted [...] using the Simplexa COVID-19 Direct Assay by Scribe Software as authorized by the FDA issued Emergency [...] Department of Pathology and Laboratory Medicine at [facility], certified under the Clinical Laboratory Improvement Amendments [...] fact sheets at the following FDA website: https://www.fda.gov/medical-devices/fypyishaupn-bcnijdq-2421-hdwhg-29-imellelmp- use-a uyvkzyxonspan-fhwafek-sygsuno/stspz-sqftscbupom-awoj SARS-CoV-2 Source QUALITY CONTROL SPECIALIST Swab [facility] Nasopharyngeal swab (specimen) 10/26/2020 10:58 PM EST 10/26/2020 11:34 PM EST Comment:Symptoms->Surveillan ce Narrative Resulting Agency Comment Spec In Lab Luann Hartley MD MICROBIOLOGY - GENER AL ORDERABLES Performing Organization Address [facility] Co de Phone Number [facility] [place] [address] * Film Library- Storage Only CT Head And Spine (10/26/2020 9:51 PM EST) Narrative [facility] - 10/26/2020 9:51 PM EST This exam is auto-finalizing. It's purpose is for storage only. Rayna Hoover APRN IMG FILM LIBRARY ORD ERABLES Performing Organization Address City/[facility] Co de Phone Number [place], [place] * Film Library- Storage Only CT Chest Abdomen Pelvis (10/26/2020 9:49 PM EST) Narrative [facility] - 10/26/2020 9:49 PM EST This exam is auto-finalizing. It's purpose is for storage only. Rayna Hoover [place] IMG FILM LIBRARY ORD ERABLES [place] documented in this encounter Visit Diagnoses Not [...] PRN, Starting on 11/05/20 at 0943, Until Tu11/20/20 at 1230, Wheezing, Routine Given 11/05/2020 9:50 AM EST 2.5 mg bacitracin-polymyxin b (POLYSPORIN) ointment ONCE PRN, Starting on 10/27/20 at 1204, Until 10/27/20 at 1300, Intra-Operative (Intra-Procedure) Given 10/27/2020 12:04 PM EST 1 Tube bisacodyL (Dulcolax) suppository 10 mg 10 mg, Rectal, DAILY, First dose on 11/03/20 at 1345, Until Discontinued, Perform digital stimulation 30 minutes after administration., Routine Given 11/19/2020 11:31 AM EST 10 mg Given 11/18/2020 8:42 AM EST 10 mg Given 11/17/2020 9:41 AM EST 10 mg BUpivacaine (pf) (Marcaine) (2.5 mg/mL) 0.25% injection ONCE PRN, Starting on 10/27/20 at 1256, Until 10/27/20 at 1300, Intra-Operative (Intra-Procedure), Routine Given 10/27/2020 12:56 PM EST 15 mLs 19- Surgical Site docusate sodium (Colace) (10 mg/mL) oral liquid 100 mg 100 mg, Per G Tube, 2 TIMES DAILY, First dose on Thu11/07/20 at 1400, Until Discontinued, Routine Given 11/20/2020 8:09 AM EST 100 mg Given 11/19/2020 9:19 PM EST 100 mg Given 11/19/2020 9:59 AM EST 100 mg gelatin adsorbable 100 (GELFOAM) sponge ONCE PRN, Starting on 10/27/20 at 1205, Until 10/27/20 at 1300, Intra-Operative (Intra-Procedure), Routine Given 10/27/2020 12:05 PM EST 1 each 19- Surgical Site heparin (porcine) (5,000 units/1 mL) subcutaneous injection [...] mg/patch) patch lidocaine (XYLOCAINE) 2 % jelly Topical (Top), EVERY 4 HOURS PRN, Pain, Starting on Thu11/01/20 at 1455, Until Thu11/20/20 at 1230 Given 11/01/2020 3:20 PM EST 20-Other (document i n comment section) melatonin tablet 6 mg 6 mg, Per G Tube, NIGHTLY PRN, Starting on Thu11/10/20 at 2330, Until Thu11/20/20 at 1230, insomnia, [...] Given 11/17/2020 9:42 AM EST 15 mLs thrombin (Bovine) (THROMBINAR) kit ONCE PRN, Starting on Thu10/27/20 at 1205, Until Thu10/27/20 at 1300, Intra-Operative (Intra-Procedure) Given 10/27/2020 12:05 PM EST 20,000 Units 19- Surgical Site tiZANidine (Zanaflex) tablet 4 mg 4 mg, [...] Given 11/18/2020 9:24 PM EST 50 mg vancomycin (Vancocin) injection ONCE PRN, Starting on 10/27/20 at 1205, Until 10/27/20 at 1300, Intra-Operative (Intra-Procedure), Routine Given 10/27/2020 12:05 PM EST 1 g 19- Surgical Site documented in this encounter Active and Recently [...] RN) 0959 (Given - Provider: Mike Lorenzo, SWETHA)2119 (Given - Provider: Ten Dove, RN) 0809 (Given - Provider: Eliane Lynch, SWETHA) heparin (porcine) (5,000 units/1 mL) subcutaneous injection 5,000 Units 5,000 Units, Subcutaneous, EVERY 8 HOURS SCHEDULED, First dose (after last modification) on Thu10/30/20 at 1700, Until Discontinued, Routine 0615 (Given - Provider: Ten Dove RN)1427 (Given - Provider: Tuyet Oliveira, SWETHA)2130 (Given - Provider: Deysi Austin, SWETHA) 0604 (Given - Provider: Amelia Mora, SWETHA)1435 (Given - Provider: Mike Lorenzo, SWETHA)2118 (Given - Provider: Ten Dove, SWETHA) 0518 (Given - Provider: Natalie Bailey RN) lactobacillus with pectin capsule 1 capsule 1 capsule, Oral, DAILY, First dose on Thu11/12/20 at 1515, Until Discontinued, Break capsule and administer contents via G tube with water or add to meals/thickened liquids, Routine 0845 (Given - Provider: Deysi Austin RN) 0959 (Given - Provider: Mike Lorenzo, SWETHA) 0809 (Given - Provider: Eliane Lynch [...] Thu11/15/20 at 2100, Until Discontinued, Feet, hands 0845 (Given - Provider: Deysi Austin RN)0 (Given - Provider: Deysi Austin RN) 1000 (Given - Provider: Mike Lorenzo RN)212 (Given - Provider: Ten Dove RN) 0809 (Given - Provider: Eliane Lynch, SWETHA) protein powder 2 Scoop, Per G Tube, [...] on Thu11/17/20 at 0900, Until Discontinued, Routine 0845 (Given - Provider: Deysi Austin RN) 0958 (Given - Provider: Mike Lorenzo, SWETHA) 0809 (Given - Provider: Eliane Lynch RN) sodium chloride 0.9 % (flush) flush 5 mL 5 mL, Intravenous, 2 TIMES DAILY, First dose on 10/27/20 at 0900, Until Discontinued, Recovery (Recovery-Hospital Unit), Routine 0840 (Given - Provider: Deysi Austin RN)2128 (Given - Provider: Deysi Austin RN) 0959 (Given - Provider: Mike Lorenzo, SWETHA)212 (Given - Provider: Ten Dove, SWETHA) 0816 (Given - Provider: Eliane Lynch RN) sodium chloride 3 % nebulizer solution 15 mL 15 mL, Nebulization, 2 TIMES DAILY, First dose on Thu11/06/20 at 1215, Until Discontinued, Routine 0841 (Not Given - Provider: Deysi Austin RN - Reason: Patient/family refused)2100 (Not Given - Provider: Deysi Austin RN - Reason: Patient/family refused) 0959 (Not Given - Provider: Mike Lorenzo, RN - Reason: Patient/family refused)2119 (Given - [...] 90 1818 (New Bag - Provider: Deysi Austin, RN) 0604 (Stopped - Provider: Amelia Mora RN) tube feeding diet 1,080 mL, Per G Tube, at 45 mL/hr, CYCLIC, Starting on Thu11/19/20 at 1900, Until Thu11/20/20 at 0659, Administer flushes and check residuals per policy, Which tube feed product? Nutren 2.0, Initial Rate: (mL/hr): 20, Advance by: (mL): 20, Goal final rate: (mL/hr): 90 1810 (New Bag - Provider: Mike Lorenzo, RN) 0600 (New Bag - Provider: Natalie [...] Routine 2123 (Given - Provider: Deysi Austin, RN) 223 (Given - Provider: Natalie Bailey RN) [...] documented as of this encounter Care Teams Grizzlyman Relationship Specialty Start Date End Date Rayna Hoover, [place] [address] [place] [address] PCP - General Family Medicine 07/01/18 08/21/21 documented as of this encounter
--- OUTSIDE RECORDS SUMMARY | 2024-07-22 15:11 | XMS_ITS | Encounter Summary ---
Author Organization Formerly [facility] [place] [address] Care Team Providers Care Windows Support Engineer Name Role Phone Rayna Pino APRN Primary Care Provider [phone] Encounter Details Date Type Department Care Team (Late st Contact Info) Description 10/26/2020 9:50 PM EST Ancillary Procedure Radiology Library at [facility] [place] [phone] Social History Tobacco Use Types Packs/Day Years [...] Diagnosis Comments FILM LIBRARY STORAGE ONLY CT CHEST ABDOMEN PELVIS STAT 10/26/2020 9:49 PM EST documented in this encounter Results * Film Library- Storage Only CT Chest Abdomen Pelvis (10/26/2020 9:49 PM EST) Narrative [facility] - 10/26/2020 9:49 PM EST This exam is auto-finalizing. It's purpose is for storage only. Rayna Pino APRN [facility] FILM LIBRARY ORD ERABLES [place], [place] documented in this encounter Visit Diagnoses Not on filedocumented in this encounter Care Teams Windows Support Engineer Relationship Specialty Start Date End Date Rayna Pino APRN [address] [facility] [place] [address] PCP - General Family Medicine 07/01/18 08/21/21 documented as of this encounter
--- OUTSIDE RECORDS SUMMARY | 2024-07-22 15:11 | XMS_ITS | Encounter Summary ---
Author Organization Formerly [facility] [place] [address] Care Team Providers Care Passenger Solicitor Name Role Phone Rayna Pino APRN Primary Care Provider Encounter Details Date Type Department Care Team (Late st Contact Info) Description 10/26/2020 11:35 PM EST Ancillary Procedure Radiology Library at [facility] [place] [phone] Social History Tobacco Use Types Packs/Day Years [...] Diagnosis Comments REQUEST FOR 2ND READ CT CHEST ABDOMEN PELVIS STAT 10/26/2020 11:33 PM EST documented in this encounter Results * Request For 2nd Read CT Chest [...] contact the number below. ? Narrative 10/27/2020 2:07 AM EST EXAMINATION: REQUEST FOR 2ND READ CT CHEST ABDOMEN PELVIS INSTITUTION WHERE STUDY PERFORMED: [facility] DATE AND TIME OF STUDY: 10/26/2020 20:52 CLINICAL HISTORY: trauma found down; What Modality is the exam? CT Scan; Body Part (please add comments as necessary): Chest abdomen pelvis; Sending Institution [facility]; Date of exam 20201026; I believe a [...] these confines: CHEST: Lungs/Pleura: Hypoventilatory dependent changes. Mediastinum/Parvin: Unremarkable. Cardiovascular: Coronary artery calcifications are present. [...] as necessary): Chest abdomen pelvis; Sending Institution [facility]; Date of exam 20201026; I believe a [...] withinthese confines: CHEST: Lungs/Pleura: Hypoventilatory dependent changes. Mediastinum/Parvin: Unremarkable. Cardiovascular: Coronary artery calcifications are present. [...] documented as of this encounter Care Teams Passenger Solicitor Relationship Specialty Start Date End Date Rayna Pino, [place] [address] [place] [address] PCP - General Family Medicine 07/01/18 08/21/21 documented as of this encounter
--- OUTSIDE RECORDS SUMMARY | 2024-07-22 15:11 | XMS_ITS | Encounter Summary ---
[place] [address] Care Team Providers Care Caddy Name Role Phone Danielle Lieberman APRN Primary Care Provider [phone] Reason for Visit * Reason Comments Establish Care Encounter Details Date Type Department Care Team (Late st Contact Info) Description 01/16/2012 11:00 AM EDT Office Visit [place] [address] Jose M Figueroa MD [facility] [place] [address] Cellulitis (Primary Dx) Discharge Disposition: Home Social History Tobacco Use Types Packs/Day Years Used Date Smoking Tobacco: Former Sex and Gender Information Value Date Recorded Sex Assigned at Not on file Gender Identity Not on file Sexual Orientation Not on file documented as of this encounter Last Filed Vital Signs Vital Sign Reading Time Taken Comments Blood Pressure 133/87 01/16/2012 11:26 AM EDT Pulse 55 01/16/2012 11:26 AM EDT Temperature 36.6 ??C (97.8 ??F) 01/16/2012 11:26 AM E DT Respiratory Rate - - Oxygen Saturation 100% 01/16/2012 11:26 AM EDT Inhaled Oxygen Concentration - - Weight 90.7 kg (200 lb) 01/16/2012 11:26 AM EDT Height 188 cm (6' 2) 01/16/2012 11:26 AM EDT Body Mass Index 25.68 01/16/2012 11:26 AM EDT documented in this encounter Progress Notes * Adam Flores MD - 01/26/2012 3:05 PM EDT Attending Addendum: I have seen and examined the patient, reviewed the data and agree with the note by Dr. Figueroa. He does not fit the bill for chronic suppressive antibiotics, had given him significant amount of information regarding prevention which he will attempt. He will get back in touch with us should there be further recurrences. * Jose M Figueroa MD - 01/16/2012 11:46 AM EDT Subjective: 4 days ago started having hot, red, painful LLE. Swelling. Reports large left inguinal lymph node. Started having N/V 2 days ago - nothing since then, still feeling a little queasy. + Sweats and chills - occurred last night, never checked temperature. Not currently having F/C. Had Doxycycline left over from prior infection and started taking 2 days ago - unsure dose, but taking twice a day. Redness has decreased since he started taking the doxycycline. Pain worse with activity, swelling stayingsteady. Patient reports this occurs in exact same place 3-4 times a year for the last 2 years. Denies trauma prior to this episode. Last episode was October. Has had MRI of that spot this past fall 2010. ROS: + fatigued and run down + short of breath every now and then with activity Denies CP/pressure + abd bloating, denies carmen abd pain Reports diarrhea for a long time, but only having 1 BM a day, occasionally jelly like BM's + dizzy occasionally SHx: Quit tobacco 2 years ago, previously smoked for 20 years <1 ppd clears power lines PE: Gen: NAD Resp: trace scattered crackles CV: RRR, s1/s2, no m/r/g Abd: soft, ND, NT, NABS Ext: swelling around left lower anterior tibia with resolving erythema, mildly tender, + athletes foot on left Assessment: 46 yo male with h/o recurrent LLE cellulitis who presents with recurrent episode. He already started treatment with doxycycline, which he had left-over at home, and the infection appears to be responding. Past infections in this area make patient at higher risk for future infections, and athlete's foot also puts patient at higher risk. We spent a while discussing strategies for prevention, including keeping feet dry, changing socks, treating athletes foot, using compression stockings, spraying insider of boots with antifungal sprays etc. Recommendations: - Doxycycline 100 mg po BID for ~ 10 days - Treat athlete's foot with OTC antifungal cream/powder BID - Discussed prevention strategies for athlete's foot as noted above - f/u with ID PRN Subjective: Patient ID: HPI Review of Systems Objective: Physical Exam Assessment and Plan: No problem-specific visit notes found for this encounter. documented in this encounter Plan of Treatment Not on file documented as of this encounter Visit Diagnoses Diagnosis Cellulitis- Primary Cellulitis and abscess of unspecified site documented in this encounter Care Teams Caddy Relationship Specialty Start Date End Date Danielle Lieberman APRN PCP - General 09/24/10 12/28/16 documented as of this encounter
== END 2024-07-22 14:57 | disposition home or self-care (01) ==
LOC: NCHCN 14:56
PROVIDERS: PCP Family Medicine; Visit Provider Family Medicine
DX: Z51.81 Encounter for therapeutic drug level monitoring (principal)
CPT/HCPCS: 80164

== ENCOUNTER → 2024-08-17 08:19 | Outpatient (BNVA) | payer MEDICARE, MEDICAID, SELFPAY | PROVIDERS: PCP Family Medicine; Visit Provider Nurse Practitioner Gerontology ==

== ENCOUNTER → 2024-08-29 13:12 | Outpatient (BNVA) | payer MEDICARE, MEDICAID, SELFPAY | PROVIDERS: PCP Family Medicine; Referring Provider Family Medicine; Visit Provider Nurse Practitioner Gerontology | DX: N21.0 Calculus in bladder (principal); N31.9 Neuromuscular dysfunction of bladder, unspecified; Z87.440 Personal history of urinary (tract) infections | CPT/HCPCS: 99442 ==

== ENCOUNTER 2024-11-04 00:09 | Outpatient (CLI) | payer MEDICARE, MEDICAID, SELFPAY ==
--- OUTSIDE RECORDS SUMMARY | 2024-11-04 00:20 | XMS_ITS | Continuity of Care Document ---
Author Organization [facility] Address [address] [place] [id number] Care Team Providers Care Cloth Calender Name Role Phone Genevieve Baez Primary Care Physician [phone] Encounter [facility] [id number] Date(s): 09/19/24 - 09/19/24 [place] [id number] Discharge Disposition: Home or Self Care Attending Physician: Genevieve Baez Admitting Physician: Genevieve Baez Referring Physician: Genevieve Baez Allergies, Adverse Reactions, Alerts No Known Medication Allergies Assessment and Plan Diagnostic Tests Pending * Urine Culture [facility] 09/19/24 Future Scheduled Tests Radiology* XR Chest 1 [...] BID, # 180 tab, 0 Refill(s), Pharmacy: [facility] [id number], 188, cm, 06/30/24 8:01:00 [...] bedtime, # 30 tab, 0 Refill(s), Pharmacy: [facility] [id number],188, cm, 06/30/24 8:01:00 EDT, Height, 90.5, kg, 06/22/24 5:53:00 EDT, Weight Dosing Start Date: 06/30/24 Status: Ordered Problem List Condition Confirmation Course Effective Dates Status Health St atus Informant Acute UTI (urinary tract infection) Confirmed Active Chronic incomplete paraplegia Confirmed Active Paraplegia Confirmed Active 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 Active Urinary tract infection Confirmed Active Results Laboratory List Name Date Urinalysis Microscopic 09/19/24 Urinalysis with Microscopic if Indicated 09/19/24 Most recent to oldest [Reference Range]: 1 UA Color [Yellow] Yellow (09/19/24 1:00 PM) UA WBC >50 /HPF *ABN* (09/19/24 1:00 PM) UA Urobilinogen [0.2] 0.2 (09/19/24 1:00 PM) UA Bili [Negative] Negative (09/19/24 1:00 PM) UA Ketones [Negative] Negative (09/19/24 1:00 PM) UA RBC 5-10 /HPF (09/19/24 1:00 PM) UA Leuk Est [Negative] 3+ *ABN* (09/19/24 1:00 PM) UA Nitrite [Negative] Negative (09/19/24 1:00 PM) UA Glucose [Negative] Negative (09/19/24 1:00 PM) UA Bacteria [None Seen] Moderate *ABN* (09/19/24 1:00 PM) UA Protein [Negative] 2+ *ABN* (09/19/24 1:00 PM) UA Blood [Negative] 2+ *ABN* (09/19/24 1:00 PM) UA Spec Grav [1.015] 1.020 (09/19/24 1:00 PM) UA pH [5.0] 7.0 *NA* (09/19/24 1:00 PM) UA Appear [Clear] Cloudy *ABN* (09/19/24 1:00 PM) Social History Social History Type Response Smoking Status Smoking tobacco use: Never tobacco user;Not obtained due to cognitive impairment entered on: 03/28/24 Sex Male Patient Care team information Care Team Personnel Name: Genevieve Baez Position: No Access Member Role: Primary Care Physician Address: Address: [address] [place] [address] [place] Care Team Related Persons Name: ASTON MORA Name: GISSELLE BARRIOS
--- OUTSIDE RECORDS SUMMARY | 2024-11-04 00:21 | XMS_ITS | Encounter Summary ---
Author Organization [facility] Address [address] [place] [address] Care Team Providers Care Supply Chain Assistant Name Role Phone None, Provider Primary Care Provider Unavailabl e Encounter Details Date Type Department Care Team (Late st Contact Info) Description 02/21/2021 Lab Requisition [facility] Pathology & Laboratory Medicine - [address] [address] Outr Resulting Lab, Provider Social History Tobacco Use Types Packs/Day Years Used Date Smoking Tobacco: Never Assessed Interpersonal Safety Answer Date Record ed Physically Hurt Never 06/26/2020 Verbally Threaten Not on file 06/26/2020 Sex and Gender Information Value Date Recorded Sex Assigned at Not on file Legal Sex Male 9:17 EDT Gender Identity Not on file Sexual Orientation [...] Salmonella PCR Negative Negative 02/21/2021 22:46 EDT [facility] Shigella/Enteroin vasive E. coli Negative Negative 02/21/2021 22:46 EDT [facility] HN LAB CAMPYLOBACTER PCR Negative Negative 02/21/2021 22:46 EDT [facility] Shiga Toxin PCR Negative Negative 22:46 EDT [facility] Feces SPECIMEN FROM RECTUM / Unknown 02/20/2021 17:00 EDT 02/21/2021 16:43 EDT us Provider Outr Resulting Lab MICROBIOLOGY - GENER AL ORDERABLES Final Result Performing Organization Address City/State/[facility] Co de Phone Number [facility] [address] [place] [address] documented in this encounter Visit Diagnoses Not on filedocumented in this encounter Additional Health Concerns Infection Onset Date Last Indicated Resolved Time MDR-GNR Comment:IP Note: MDR-GNR positive Proteus in urine 02/26/23 A Ross 03/05/23 03/05/2023 03/05/2023 documented as of this encounter Care Teams Supply Chain Assistant Relationship Specialty Start Date End Date None, Provider PCP - General 07/15/16 documented as of this encounter
--- OUTSIDE RECORDS SUMMARY | 2024-11-04 00:21 | XMS_ITS | Encounter Summary ---
Author Organization [facility] Address [address] [place] [address] Care Team Providers Care Edge Sawyer Name Role Phone None, Provider Primary Care Provider Unavailabl e Reason for Visit * (Routine) - Receiving Office to Obtain Authorization Specialty Diagnoses / Procedures Referred By Ness palacio Referred To Contact Procedures XR OUTSIDE IMAGES BODY Unknown, Provider, MD Referral ID Status Reason Start Date Expiration Date Visits Requested Visits Authorized [id number] Receiving Office to Obtain Authorization 04/04/2021 1 1 Encounter Details Date Type Department Care Team (Latest Contact Info) Description 01/01/[address] [facility] Secondary Reads [...] 20:29 EDT This is a non-reportable exam. us Provider Unknown MD IMG OTHER IMAGING ORDERABLES Final Result documented in this encounter Visit Diagnoses Not on filedocumented in this encounter Care Teams Edge Sawyer Relationship Specialty Start Date End Date None, Provider PCP - General 07/15/16 documented as of this encounter
--- OUTSIDE RECORDS SUMMARY | 2024-11-04 00:21 | XMS_ITS | Encounter Summary ---
Author Organization [facility] Address [address] [place] [address] Care Team Providers Care Implementation Technician Name Role Phone None, Provider Primary Care Provider Unavailabl e Encounter Details Date Type Department Care Team (Late st Contact Info) Description 07/03/2021 Lab Requisition [facility] Pathology & Laboratory Medicine - [facility] [address] [place] [address] Outr Resulting Lab, Provider Social History Tobacco [...] 20 - 40 mg/dL 07/04/2021 8:37 EDT [facility] Blood VENOUS BLOOD / Unknown 07/03/2021 6:54 EDT 07/03/2021 16:47 EDT us Provider Outr Resulting Lab CHEMISTRY & BLOOD GA S ORDERABLES Final Result [facility] [address] [place] [address] documented in this encounter Visit Diagnoses Not on filedocumented in this encounter Additional Health Concerns Infection Onset Date Last Indicated Resolved Time MDR-GNR Comment:IP Note: MDR-GNR positive Proteus in urine 02/26/23 A Ross 03/05/23 03/05/2023 03/05/2023 documented as of this encounter Care Teams Implementation Technician Relationship Specialty Start Date End Date None, Provider PCP - General 07/15/16 documented as of this encounter
--- OUTSIDE RECORDS SUMMARY | 2024-11-04 00:21 | XMS_ITS | Encounter Summary ---
Author Organization [facility] Address [address] [place] [address] Care Team Providers Care Insurance Sales Executive Name Role Phone None, Provider Primary Care Provider Unavailabl e Encounter Details Date Type Department Care Team (Latest Contact Info) Description 04/02/2021 Lab Requisition [facility] Pathology & Laboratory Medicine - [facility] [address] [place] [address] Wale Calderon MD Osteomyelitis of vertebra, sacral and sacrococcygeal region ([facility]) Social History Tobacco Use Types Packs/Day Years [...] Osteomyelitis of vertebra, sacral and sacrococcygeal region ([facility]) documented in this encounter Results * SURGICAL PATHOLOGY (03/31/2021 2:44 EDT) Final Diagnosis A. DISTAL OSTOMY SITE, EXCISION: - Colon wall with regenerative and ulcerated mucosa and submucosal fibrosis. B. AFFERENT LOOP STAPLE LINE, EXCISION: - Invaginated colonic mucosa with reactive atypia, in a background of fibrosis, foreign body giant cell reaction, and chronic inflammation. See comment. 04/08/2021 18:18 [facility] Diagnosis Comment The invaginated colonic mucosa with the associated morphologic findings is compatible with changes seen near staple line. 04/08/2021 18:18 [facility] Attestation By the signature below, the attending physician certifies that they have 1) personally conducted a gross and/or microscopic examination of the described specimen(s), and/or personally interpreted the results of laboratory testing of the described specimen(s), and 2) personally rendered or confirmed the above diagnosis. 04/08/2021 18:18 [facility] at 1818 Clinical History Large bowel obstruction 04/08/2021 18:18 [facility] Gross Description A. [...] mucosa is pink-wood with the usual folds. Stranner sections are submitted in A1-A2. B. Received in formalin labelled with proper patient identification (initials R, L) and afferent loop staple line is a blunted portion of bowel (4.5 x 3.5 x 1.1 cm) with a minimal amount of attached adipose tissue. Within the central portion of the specimen is a staple line. No lesions or polyps are identified. Two district sales representative sections are submitted in B1-B2. KAN GOODSON(ASCP) 04/03/2021 10:13 04/08/2021 18:18 [facility] Performing Lab [facility] 04/08/2021 18:18 [facility] Scanned Images 04/08/2021 18:18 [facility] Tissue OSTOMY IRRIGATION / Unknown 03/31/2021 2:44 EDT 04/02/2021 17:06 EDT Tissue specimen (specimen) OSTOMY IRRIGATION / Unknown 03/31/2021 4:02 EDT 04/02/2021 17:06 EDT us Wale Calderon MD PATHOLOGY ORDERABLES Final Resul t [facility] [address] [place] [address] documented in this encounter Visit Diagnoses Diagnosis Osteomyelitis of vertebra, sacral and sacrococcygeal region ([facility]) documented in this encounter Additional Health Concerns Infection Onset Date Last Indicated Resolved Time MDR-GNR Comment:IP Note: MDR-GNR positive Proteus in urine 02/26/23 A Ross 03/05/23 03/05/2023 03/05/2023 documented as of this encounter Care Teams Insurance Sales Executive Relationship Specialty Start Date End Date None, Provider PCP - General 07/15/16 documented as of this encounter
--- OUTSIDE RECORDS SUMMARY | 2024-11-04 00:21 | XMS_ITS | Encounter Summary ---
Author Organization [facility] Address [address] [place] [address] Care Team Providers Care Cement Mason Name Role Phone None, Provider Primary Care Provider Unavailabl e Encounter Details Date Type Department Care Team (Late st Contact Info) Description 01/18/2021 Lab Requisition [facility] Pathology & Laboratory Medicine - [facility] [address] [place] [address] Outr Resulting Lab, Provider Social History Tobacco [...] Not Detected Not Detected 01/19/2021 15:22 EDT [facility] Comment: This test has not [...] or revoked sooner. ??Factsheets for healthcare providers: ??https://www.fda.gov/media/392203/download Factsheets for patients: https://www.fda.gov/media/315590/download Negative results do not preclude infection with SARS-CoV-2 virus, and should not be the sole basis of a patient management decision. Swab ENTIRE NASOPHARYNX / Unknown 01/17/2021 15:45 EDT 01/18/2021 15:47 EDT us Provider Outr Resulting Lab MICROBIOLOGY - GENER AL ORDERABLES Final Result Performing Organization Address City/State/[facility] Co de Phone Number [facility] [address] [place], [place] [address] * COVID-19 TESTING (01/17/2021 15:45 EDT) COVID-19 rt-PCR Result Not Detected Not Detected 01/19/2021 15:32 EDT [facility] Comment: This test has not [...] or revoked sooner. ??Factsheets for healthcare providers: ??https://www.fda.gov/media/097402/download Factsheets for patients: https://www.fda.gov/media/074706/download Negative results do not preclude infection with SARS-CoV-2 virus, and should not be the sole basis of a patient management decision. Performing Lab [facility] 01/19/2021 15:32 EDT [facility] Swab 01/17/2021 15:4 5 EDT 01/18/2021 15:47 EDT us Provider Outr Resulting Lab MICROBIOLOGY - GENER AL ORDERABLES Final Result [facility] [address] LABORATORY [address] [place] [address] documented in this encounter Visit Diagnoses Not on filedocumented in this encounter Additional Health Concerns Infection Onset Date Last Indicated Resolved Time MDR-GNR Comment:IP Note: MDR-GNR positive Proteus in urine 02/26/23 A Ross 03/05/23 03/05/2023 03/05/2023 documented as of this encounter Care Teams Cement Mason Relationship Specialty Start Date End Date None, Provider PCP - General 07/15/16 documented as of this encounter
--- OUTSIDE RECORDS SUMMARY | 2024-11-04 00:21 | XMS_ITS | Encounter Summary ---
Author Organization [facility] Address [address] [place] [address] Care Team Providers Care Linux Developer Name Role Phone None, Provider Primary Care Provider Unavailabl e Reason for Visit * (Routine) - Receiving Office to Obtain Authorization Specialty Diagnoses / Procedures Referred By Ness t Referred To Contact Procedures XR OUTSIDE IMAGES BODY Unknown, Provider, MD Referral ID Status Reason Start Date Expiration Date Visits Requested Visits Authorized [id number] Receiving Office to Obtain Authorization 04/04/2021 1 1 Encounter Details Date Type Department Care Team (Latest Contact Info) Description 12/31/2020 - 12/31/2020 23:59 EST Hospital Encounter [facility] Secondary Reads [place] Discharge Disposition: [...] 20:28 EDT This is a non-reportable exam. us Provider Unknown IMFawn OTHER IMAGING ORDERABLES Final Result documented in this encounter Visit Diagnoses Not on filedocumented in this encounter Care Teams Linux Developer Relationship Specialty Start Date End Date None, Provider PCP - General 07/15/16 documented as of this encounter
--- OUTSIDE RECORDS SUMMARY | 2024-11-04 00:21 | XMS_ITS | Encounter Summary ---
Author Organization [facility] Address [address] [place] [address] Care Team Providers Care Aircraft Sales Representative Name Role Phone None, Provider Primary Care Provider Unavailabl e Encounter Details Date Type Department Care Team (Late st Contact Info) Description 11/12/2021 Lab Requisition [facility] Pathology & Laboratory Medicine - [facility] [address] [place] [address] Efe Silva DPM [address] [place] [phone] Encounter for other general examination Social [...] explore management options, if applicable. 11/15/2021 11:12 [facility] Final Diagnosis A. TISSUE FROM RIGHT 5TH METATARSAL-PHALANG EAL JOINT, RESECTION: - Focal denudation of join cartilage with acute and chronic osteomyelitis. - Focal bony remodeling changes. B. RIGHT PROXIMAL PHALANX, BASE, RESECTION: - Benign articular cartilage-lined trabecular bone with focal features suggestive of chronic osteomyelitis (slide B2). 11/15/2021 11:12 [facility] Attestation There was significant resident/fellow involvement in the diagnostic evaluation of this case. By the signature below, the attending physician certifies that they have personally conducted a gross and/or microscopic examination of the described specimens and rendered or confirmed the above diagnosis. 11/15/2021 11:12 [facility] at 1112 Clinical History Neuropathic wound (R) fifth toe, probable osteomyelitis 11/15/2021 11:12 [facility] Gross Description A. [...] decalcification. KAN MICHAEL(ASCP) 11/12/2021 14:20 11/15/2021 11:12 [facility] Resident/Jcarlos w: Gloria Frias MD 11/15/2021 11:12 [facility] Performing Lab [facility] 11:12 EST [facility] Scanned Images 11/15/2021 11:12 EST [facility] Tissue SPECIMEN FROM BONE / Unknown 11/11/2021 12:20 EST 11/12/2021 10:24 EST Tissue specimen (specimen) BONE STRUCTURE / Unknown 11/11/2021 12:20 EST 11/12/2021 10:24 EST Efe Silva DPM PATHOLOGY ORDERABLES Fin al Result [facility] [address] [place] [address] documented in this encounter Visit Diagnoses Diagnosis Encounter for other general examination documented in this encounter Additional Health Concerns Infection Onset Date Last Indicated Resolved Time MDR-GNR Comment:IP Note: MDR-GNR positive Proteus in urine 02/26/23 A Ross 03/05/23 03/05/2023 03/05/2023 documented as of this encounter Care Teams Aircraft Sales Representative Relationship Specialty Start Date End Date None, Provider PCP - General 07/15/16 documented as of this encounter
--- OUTSIDE RECORDS SUMMARY | 2024-11-04 00:21 | XMS_ITS | Encounter Summary ---
Author Organization [facility] Address [address] [place] [address] Care Team Providers Care Flight Communications Operator Name Role Phone None, Provider Primary Care Provider Unavailabl e Encounter Details Date Type Department Care Team (Late st Contact Info) Description 02/26/2021 Lab Requisition [place] Pathology & Laboratory Medicine - [address] [address] Wale Calderon MD Encounter for other general [...] with abundant acute inflammation. 03/01/2021 11:03 EDT [facility] Attestation There was significant resident/fellow involvement in the diagnostic evaluation of this case. By the signature below, the attending physician certifies that they have personally conducted a gross and/or microscopic examination of the described specimens and rendered or confirmed the above diagnosis. 03/01/2021 11:03 [facility] at 1103 Clinical History Bilateral ischial tuberosity ulcers (decubitus ulcers) 03/01/2021 11:03 EDT [facility] Gross Description A. [...] focally indurated and focally softened cut surfaces. Shop Coordinator sections are submitted in A1-A2. B. Received [...] focally indurated, focally softened, hemorrhagic cut surfaces. Shop Coordinator sections are submitted in B1-B2. KAN LINDQUIST([facility]) 02/26/2021 10:29 03/01/2021 11:03 EDT [facility] Resident/Jcarlos w: Rajinder Verduzco DO 03/01/2021 11:03 T [facility] Performing Lab [facility] 03/01/2021 11:03 T [facility] Scanned Images 03/01/2021 11:03 T [facility] Tissue SOFT TISSUE / Unknown 02/25/2021 12:45 EDT 02/26/2021 8:44 EDT Tissue specimen (specimen) SOFT TISSUE / Unknown 02/25/2021 12:45 EDT 02/26/2021 8:44 EDT us Wale Calderon MD PATHOLOGY ORDERABLES Final Resul t [facility] [address] [place] [address] documented in this encounter Visit Diagnoses Diagnosis Encounter for other general examination documented in this encounter Additional Health Concerns Infection Onset Date Last Indicated Resolved Time MDR-GNR Comment:IP Note: MDR-GNR positive Proteus in urine 02/26/23 A Ross 03/05/23 03/05/2023 03/05/2023 documented as of this encounter Care Teams Flight Communications Operator Relationship Specialty Start Date End Date None, Provider PCP - General 07/15/16 documented as of this encounter
--- OUTSIDE RECORDS SUMMARY | 2024-11-04 00:21 | XMS_ITS | Encounter Summary ---
Author Organization [facility] Address [address] [place] [address] Care Team Providers Care Underwriting Manager Name Role Phone None, Provider Primary Care Provider Unavailabl e Encounter Details Date Type Department Care Team (Late st Contact Info) Description 01/14/[address] [facility] Pathology & Laboratory Medicine - [facility] [address] [place] [address] Outr Resulting Lab, Provider Social History Tobacco [...] Antigen Detection Negative Negative 01/14/2024 20:29 EDT [facility] Urine URINE / Unknown 01/13/2024 2 1:50 EDT 01/14/2024 17:57 EDT us Provider Outr Resulting Lab MICROBIOLOGY - GENER AL ORDERABLES Final Result [facility] [address] [place] [address] documented in this encounter Visit Diagnoses Not on filedocumented in this encounter Additional Health Concerns Infection Onset Date Last Indicated Resolved Time MDR-GNR Comment:IP Note: MDR-GNR positive Proteus in urine 02/26/23 A Ross 03/05/23 03/05/2023 03/05/2023 documented as of this encounter Care Teams Underwriting Manager Relationship Specialty Start Date End Date None, Provider PCP - General 07/15/16 documented as of this encounter
--- OUTSIDE RECORDS SUMMARY | 2024-11-04 00:21 | XMS_ITS | Encounter Summary ---
Author Organization [facility] Address [address] [place] [address] Care Team Providers Care Hospital Fellow Name Role Phone None, Provider Primary Care Provider Unavailabl e Reason for Visit * (Routine) - Receiving Office to Obtain Authorization Specialty Diagnoses / Procedures Referred By Ness t Referred To Contact Procedures XR OUTSIDE IMAGES BODY Unknown, Provider, MD Referral ID Status Reason Start Date Expiration Date Visits Requested Visits Authorized [id number] Receiving Office to Obtain Authorization 04/04/2021 1 1 Encounter Details Date Type Department Care Team (Latest Contact Info) Description 03/22/2021 - 03/22/2021 0:04 EDT Hospital Encounter [facility] Secondary Reads [place] Discharge Disposition: Home or [...] 18:15 EDT This is a non-reportable exam. us Provider Unknown IMFawn OTHER IMAGING ORDERABLES Final Result documented in this encounter Visit Diagnoses Not on filedocumented in this encounter Care Teams Hospital Fellow Relationship Specialty Start Date End Date None, Provider PCP - General 07/15/16 documented as of this encounter
--- OUTSIDE RECORDS SUMMARY | 2024-11-04 00:21 | XMS_ITS | Encounter Summary ---
Author Organization [facility] Address [address] [place] [address] Care Team Providers Care Pilot Teacher Name Role Phone None, Provider Primary Care Provider Unavailabl e Reason for Visit * (Routine) - Receiving Office to Obtain Authorization Specialty Diagnoses / Procedures Referred By Ness palacio Referred To Contact Procedures XR OUTSIDE IMAGES CHEST Unknown, Provider, MD Referral ID Status Reason Start Date Expiration Date Visits Requested Visits Authorized [id number] Receiving Office to Obtain Authorization 04/04/2021 1 1 Encounter Details Date Type Department Care Team (Latest Contact Info) Description 03/23/2021 0:10 EDT - 03/23/2021 23:59 EDT Hospital Encounter [facility] Secondary Reads [place] Discharge [...] 18:44 EDT This is a non-reportable exam. us Provider Unknown IMFawn OTHER IMAGING ORDERABLES Final Result documented in this encounter Visit Diagnoses Not on filedocumented in this encounter Care Teams Pilot Teacher Relationship Specialty Start Date End Date None, Provider PCP - General 07/15/16 documented as of this encounter
--- OUTSIDE RECORDS SUMMARY | 2024-11-04 00:21 | XMS_ITS | Encounter Summary ---
Author Organization [facility] Address [address] [place] [address] Care Team Providers Care Hospitalist Nocturnist Physician Name Role Phone None, Provider Primary Care Provider Unavailabl e Encounter Details Date Type Department Care Team (Late st Contact Info) Description 06/11/2020 Lab Requisition [facility] Pathology & Laboratory Medicine - [facility] [address] [place] [address] Rajinder Inman MD [address] [place] [phone] Encounter for screening for malignant neoplasm of [...] POLYP, BIOPSY: -Hyperplastic polyp. 06/13/2020 9:40 T [facility] Attestation By the signature below, the attending physician certifies that they have 1) personally conducted a gross and/or microscopic examination of the described specimen(s), and/or personally interpreted the results of laboratory testing of the described specimen(s), and 2) personally rendered or confirmed the above diagnosis. 06/13/2020 9:40 [facility] at 0940 Clinical History Anal prolapse, polyp 06/13/2020 9:40 [facility] Gross Description [...] specimen is entirely submitted in C1. Renae Henaouc 06/11/2020 16:15 06/13/2020 9:40 EDT [facility] Performing Lab [facility] 06/13/2020 9:40 T [facility] Scanned Images 06/13/2020 9:40 [facility] Tissue SPECIMEN FROM RECTUM / Unknown 06/08/2020 9:30 EDT 06/11/2020 15:50 EDT Tissue specimen (specimen) DESCENDING COLON STRUCTURE / Unknown 06/08/2020 9:30 EDT 06/11/2020 15:50 EDT Tissue specimen (specimen) SPECIMEN FROM RECTUM / Unknown 06/08/2020 9:30 EDT 06/11/2020 15:50 EDT Rajinder Inman MD PATHOLOGY ORDERABLES Final Result [facility] [address] [place] [address] documented in this encounter Visit Diagnoses Diagnosis [...] documented as of this encounter Care Teams Hospitalist Nocturnist Physician Relationship Specialty Start Date End Date None, Provider PCP - General 07/15/16 documented as of this encounter
--- OUTSIDE RECORDS SUMMARY | 2024-11-04 00:21 | XMS_ITS | Encounter Summary ---
Author Organization [facility] Address [address] [place] [address] Care Team Providers Care Gray Tender Name Role Phone None, Provider Primary Care Provider Unavailabl e Encounter Details Date Type Department Care Team (Late st Contact Info) Description 03/30/2021 Lab Requisition [facility] Pathology & Laboratory Medicine - [facility] [address] [place] [address] Outr Resulting Lab, Provider Social History Tobacco [...] 20 - 40 mg/dL 04/02/2021 9:43 EDT [facility] Blood VENOUS BLOOD / Unknown 03/30/2021 6:40 EDT 03/31/2021 15:53 EDT us Provider Outr Resulting Lab CHEMISTRY & BLOOD GA S ORDERABLES Final Result [facility] [address] [place] [address] documented in this encounter Visit Diagnoses Not on filedocumented in this encounter Additional Health Concerns Infection Onset Date Last Indicated Resolved Time MDR-GNR Comment:IP Note: MDR-GNR positive Proteus in urine 02/26/23 A Ross 03/05/23 03/05/2023 03/05/2023 documented as of this encounter Care Teams Gray Tender Relationship Specialty Start Date End Date None, Provider PCP - General 07/15/16 documented as of this encounter
--- OUTSIDE RECORDS SUMMARY | 2024-11-04 00:21 | XMS_ITS | Encounter Summary ---
Author Organization [facility] Address [address] [place] [address] Care Team Providers Care Shaper Hand Name Role Phone None, Provider Primary Care Provider Unavailabl e Encounter Details Date Type Department Care Team (Late st Contact Info) Description 05/28/[address] [facility] Pathology & Laboratory Medicine - [facility] [address] [place] [address] Outr Resulting Lab, Provider Social History Tobacco [...] 20 - 40 mg/dL 05/29/2021 9:03 EDT [facility] Blood VENOUS BLOOD / Unknown 05/28/2021 6:45 EDT 05/28/2021 15:33 EDT us Provider Outr Resulting Lab CHEMISTRY & BLOOD GA S ORDERABLES Final Result [facility] [address] [place] [address] documented in this encounter Visit Diagnoses Not on filedocumented in this encounter Additional Health Concerns Infection Onset Date Last Indicated Resolved Time MDR-GNR Comment:IP Note: MDR-GNR positive Proteus in urine 02/26/23 A Ross 03/05/23 03/05/2023 03/05/2023 documented as of this encounter Care Teams Shaper Hand Relationship Specialty Start Date End Date None, Provider PCP - General 07/15/16 documented as of this encounter
--- OUTSIDE RECORDS SUMMARY | 2024-11-04 00:21 | XMS_ITS | Referral Summary ---
Author Organization [facility] Address [address] [place] [address] Care Team Providers Care City Solicitor Name Role Phone None, Provider Primary Care [...] urine 02/26/23 A Ross 03/05/23 03/05/2023 03/05/2023 Insurance ANTHEM Care Teams City Solicitor Relationship Specialty Start Date End Date None, Provider PCP - General 07/15/16
--- OUTSIDE RECORDS SUMMARY | 2024-11-04 00:21 | XMS_ITS | Encounter Summary ---
Author Organization [facility] Address [address] [place] [address] Care Team Providers Care Instructional Technology Facilitator Name Role Phone Unknown, Provider MD Primary Care Provider Unava ilable Encounter Details Date Type Department Care Team (Late st Contact Info) Description 07/10/2016 Results Only [facility]- [facility] [phone] Kiel Murillo MD [address] [facility] [address] [place] [address] Social History Tobacco Use Types [...] ? NEWTON BARRIOS ? Accession #: ? [id number] ? : ? 1965 (Age: 51) ??M [...] (ASCP) 07/11/2016 10:24 AM End of Report [facility] 07/10/2016 9:20 EDT 07/11/2016 9:20 EDT us Kiel Murillo MD PATHOLOGY ORDERABLES Final Resul t [facility] [address] [place] [address] documented in this encounter Visit Diagnoses Not on filedocumented in this encounter Care Teams Instructional Technology Facilitator Relationship Specialty Start Date End Date Unknown, Provider, PCP - General 07/11/16 07/14/16 documented as of this encounter
--- OUTSIDE RECORDS SUMMARY | 2024-11-04 00:21 | XMS_ITS | Encounter Summary ---
Author Organization [facility] Address [address] [place] [address] Care Team Providers Care Supply Chain Technician Name Role Phone None, Provider Primary Care Provider Unavailabl e Reason for Visit * (Routine) - Receiving Office to Obtain Authorization Specialty Diagnoses / Procedures Referred By Ness palacio Referred To Contact Procedures US OUTSIDE IMAGES BODY Unknown, Provider, MD Referral ID Status Reason Start Date Expiration Date Visits Requested Visits Authorized [id number] Receiving Office to Obtain Authorization 04/04/2021 1 1 Encounter Details Date Type Department Care Team (Latest Contact Info) Description 01/01/2021 Hospital [facility] Secondary Reads [place] Discharge Disposition: Home [...] 20:30 EDT This is a non-reportable exam. us Provider Unknown MD IMG OTHER IMAGING ORDERABLES Final Result documented in this encounter Visit Diagnoses Not on filedocumented in this encounter Care Teams Supply Chain Technician Relationship Specialty Start Date End Date None, Provider PCP - General 07/15/16 documented as of this encounter
--- OUTSIDE RECORDS SUMMARY | 2024-11-04 00:21 | XMS_ITS | Encounter Summary ---
Author Organization [facility] Address [address] [place] [address] Care Team Providers Care Word Processor Technician Name Role Phone None, Provider Primary Care Provider Unavailabl e Encounter Details Date Type Department Care Team (Late st Contact Info) Description 04/02/2022 Lab Requisition [facility] Pathology & Laboratory Medicine - [facility] [address] [place] [address] Outr Resulting Lab, Provider Social History Tobacco [...] 04/02/2022 11:3 0 EDT 04/02/2022 22:35 EDT us Provider Outr Resulting Lab MICROBIOLOGY - GENER AL ORDERABLES Final Result Performing Organization Address City/State/[facility] Co de Phone Number [facility] [address] [place] [address] * COVID-19 TESTING (04/02/2022 11:30 EDT) COVID-19 rt-PCR Result Negative Negative 04/03/2022 11:07 EDT [facility] Comment: This test has [...] performed using the taj SARS-CoV-2 assay ([employer] on the Taj 6800 System Performing Lab Taj [address] [facility] Lab 04/03/2022 11:07 EDT [facility] Swab 04/02/2022 11:3 0 EDT 04/02/2022 22:35 EDT us Provider Outr Resulting Lab MICROBIOLOGY - GENER AL ORDERABLES Final Result Performing Organization Address [facility] Co de Phone Number [facility] [address] [place] [address] documented in this encounter Visit Diagnoses Not on filedocumented in this encounter Additional Health Concerns Infection Onset Date Last Indicated Resolved Time MDR-GNR Comment:IP Note: MDR-GNR positive Proteus in urine 02/26/23 A Ross 03/05/23 03/05/2023 03/05/2023 documented as of this encounter Care Teams Word Processor Technician Relationship Specialty Start Date End Date None, Provider PCP - General 07/15/16 documented as of this encounter
--- OUTSIDE RECORDS SUMMARY | 2024-11-04 00:21 | XMS_ITS | Encounter Summary ---
Author Organization [facility] Address [address] [place] [address] Care Team Providers Care Laundry Folder Name Role Phone None, Provider Primary Care Provider Unavailabl e Encounter Details Date Type Department Care Team (Late st Contact Info) Description 04/26/2022 Lab Requisition [facility] Pathology & Laboratory Medicine - [facility] [address] [place] [address] Outr Resulting Lab, Provider Social History Tobacco [...] 04/25/2022 10:2 0 EDT 04/26/2022 21:39 EDT us Provider Outr Resulting Lab MICROBIOLOGY - GENER AL ORDERABLES Final Result Performing Organization Address City/State/[facility] Co de Phone Number [facility] [address] [place] [address] * COVID-19 TESTING (04/25/2022 10:20 EDT) COVID-19 rt-PCR Result Negative Negative 04/27/2022 10:54 EDT [facility] Comment: This test has not [...] performed using the taj SARS-CoV-2 assay ([employer] on the Taj 6800 System Performing Lab Taj [address] [facility] Lab 04/27/2022 10:54 EDT [facility] Swab 04/25/2022 10:2 0 EDT 04/26/2022 21:39 EDT us Provider Outr Resulting Lab MICROBIOLOGY - GENER AL ORDERABLES Final Result Performing Organization Address [facility] Co de Phone Number [facility] [address] [place] [address] documented in this encounter Visit Diagnoses Not on filedocumented in this encounter Additional Health Concerns Infection Onset Date Last Indicated Resolved Time MDR-GNR Comment:IP Note: MDR-GNR positive Proteus in urine 02/26/23 A Ross 03/05/23 03/05/2023 03/05/2023 documented as of this encounter Care Teams Laundry Folder Relationship Specialty Start Date End Date None, Provider PCP - General 07/15/16 documented as of this encounter
--- OUTSIDE RECORDS SUMMARY | 2024-11-04 00:21 | XMS_ITS | Encounter Summary ---
Author Organization [facility] Address [address] [place] [address] Care Team Providers Care Cloud Systems Administrator Name Role Phone None, Provider Primary Care Provider Unavailabl e Reason for Visit * (Routine) - Receiving Office to Obtain Authorization Specialty Diagnoses / Procedures Referred By Ness palacio Referred To Contact Procedures XR OUTSIDE IMAGES CHEST Unknown, Provider, MD Referral ID Status Reason Start Date Expiration Date Visits Requested Visits Authorized [id number] Receiving Office to Obtain Authorization 04/04/2021 1 1 Encounter Details Date Type Department Care Team (Latest Contact Info) Description 03/23/2021 - 03/23/2021 0:04 EDT Hospital Encounter [facility] Secondary Reads [place] Discharge Disposition: [...] 18:23 EDT This is a non-reportable exam. us Provider Unknown IMFawn OTHER IMAGING ORDERABLES Final Result documented in this encounter Visit Diagnoses Not on filedocumented in this encounter Care Teams Cloud Systems Administrator Relationship Specialty Start Date End Date None, Provider PCP - General 07/15/16 documented as of this encounter
--- OUTSIDE RECORDS SUMMARY | 2024-11-04 00:21 | XMS_ITS | Encounter Summary ---
Author Organization [facility] Address [address] [place] [address] Care Team Providers Care Mechanical Field Engineer Name Role Phone None, Provider Primary Care Provider Unavailabl e Encounter Details Date Type Department Care Team (Late st Contact Info) Description 06/19/2023 Lab Requisition [facility] Pathology & Laboratory Medicine - [address] [address] Genevieve Baez MD [address] [place] [phone] Social History Tobacco Use Types Packs/Day [...] Organism ID Lisa albicans(A) 06/22/2023 14:25 EDT [facility] Organism URINE / Unknown 06/15/2023 2 1:30 EDT 06/19/2023 17:43 EDT Narrative Organism Antibiotic Method Susceptibility Lisa albicans Fluconazole MICRO SUSCEPTIBILITY 0.5 ug/mL: Susceptible us Genevieve Baez MD MICROBIOLOGY - GENERAL ORDERAB LES Final Result [facility] [address] [place] [address] documented in this encounter Visit Diagnoses Not on filedocumented in this encounter Additional Health Concerns Infection Onset Date Last Indicated Resolved Time MDR-GNR Comment:IP Note: MDR-GNR positive Proteus in urine 02/26/23 A Ross 03/05/23 03/05/2023 03/05/2023 documented as of this encounter Care Teams Mechanical Field Engineer Relationship Specialty Start Date End Date None, Provider PCP - General 07/15/16 documented as of this encounter
--- OUTSIDE RECORDS SUMMARY | 2024-11-04 00:21 | XMS_ITS | Encounter Summary ---
Author Organization [facility] Address [address] [place] [address] Care Team Providers Care Wire Hanger Name Role Phone None, Provider Primary Care Provider Unavailabl e Reason for Visit * (Routine) - Receiving Office to Obtain Authorization Specialty Diagnoses / Procedures Referred By Ness palacio Referred To Contact Procedures XR OUTSIDE IMAGES CHEST Unknown, Provider, MD Referral ID Status Reason Start Date Expiration Date Visits Requested Visits Authorized [id number] Receiving Office to Obtain Authorization 04/04/2021 1 1 Encounter Details Date Type Department Care Team (Latest Contact Info) Description 03/23/2021 0:05 EDT - 03/23/2021 0:[address] [facility] Secondary Reads [place] Discharge Disposition: Home [...] 18:24 EDT This is a non-reportable exam. us Provider Unknown IMFawn OTHER IMAGING ORDERABLES Final Result documented in this encounter Visit Diagnoses Not on filedocumented in this encounter Care Teams Wire Hanger Relationship Specialty Start Date End Date None, Provider PCP - General 07/15/16 documented as of this encounter
--- OUTSIDE RECORDS SUMMARY | 2024-11-04 00:21 | XMS_ITS | Encounter Summary ---
Author Organization [facility] Address [address] [place] [address] Care Team Providers Care Forest Nursery Worker Name Role Phone None, Provider Primary Care Provider Unavailabl e Encounter Details Date Type Department Care Team (Late st Contact Info) Description 05/12/2023 Lab Requisition [facility] Pathology & Laboratory Medicine - [address] [address] Scarlett Zhu MD [address] [place] [phone] Social History Tobacco Use Types Packs/Day Years [...] mirabilis( A) VITEK SUSCEPTIBILITY 05/15/2023 11:27 EDT [facility] Comment: Organism identification performed [...] only cefpodoxime and cephalexin are on the [facility] inpatient formulary. ? Organism (organism) [...] tho xazole VITEK SUSCEPTIBILITY >=320 ug/mL: Resistant us Scarlett Zhu MD MICROBIOLOGY - GENERAL AMANDA DIXON Final Result [facility] [address] [place] [address] documented in this encounter Visit Diagnoses Not on filedocumented in this encounter Additional Health Concerns Infection Onset Date Last Indicated Resolved Time MDR-GNR Comment:IP Note: MDR-GNR positive Proteus in urine 02/26/23 A Ross 03/05/23 03/05/2023 03/05/2023 documented as of this encounter Care Teams Forest Nursery Worker Relationship Specialty Start Date End Date None, Provider PCP - General 07/15/16 documented as of this encounter
--- OUTSIDE RECORDS SUMMARY | 2024-11-04 00:21 | XMS_ITS | Encounter Summary ---
Author Organization [facility] Address [address] [place] [address] Care Team Providers Care Transportation Clerk Name Role Phone None, Provider Primary Care Provider Unavailabl e Reason for Visit * (Routine) - Receiving Office to Obtain Authorization Specialty Diagnoses / Procedures Referred By Ness palacio Referred To Contact Procedures XR OUTSIDE IMAGES CHEST Unknown, Provider, MD Referral ID Status Reason Start Date Expiration Date Visits Requested Visits Authorized [id number] Receiving Office to Obtain Authorization 04/04/2021 1 1 Encounter Details Date Type Department Care Team (Latest Contact Info) Description 03/22/2021 0:05 EDT - 03/22/2021 23:59 EDT Hospital Encounter [facility] Secondary Reads [place] Discharge [...] 18:16 EDT This is a non-reportable exam. us Provider Unknown IMFawn OTHER IMAGING ORDERABLES Final Result documented in this encounter Visit Diagnoses Not on filedocumented in this encounter Care Teams Transportation Clerk Relationship Specialty Start Date End Date None, Provider PCP - General 07/15/16 documented as of this encounter
--- OUTSIDE RECORDS SUMMARY | 2024-11-04 00:21 | XMS_ITS | Encounter Summary ---
Author Organization [facility] Address [address] [place] [address] Care Team Providers Care Credentialing Manager Name Role Phone None, Provider Primary Care Provider Unavailabl e Encounter Details Date Type Department Care Team (Late st Contact Info) Description 09/05/2021 Lab Requisition [facility] Pathology & Laboratory Medicine - [facility] [place] [address] [place] [address] Wendy Skinner, [address] [address] [place] [phone] Encounter for other general examination Social History [...] ID Lisa parapsilosis (A) 09/09/2021 12:02 EST [facility] Organism (organism) VENOUS BLOOD / Unknown 09/01/2021 12:55 EDT 09/05/2021 21:21 EDT Narrative [facility] - 09/09/2021 12:02 EST 09/07/21 - susc for Fluconazole requested by Anita Bonilla from [facility] Organism Antibiotic Method Susceptibility Lisa parapsilosis Fluconazole MICRO SUSCEPTIBILITY 0.5 ug/mL: Susceptible Lisa parapsilosis Micafungin MICRO SUSCEPTIBILITY 4 ug/mL: Intermediate us Wendy Skinner PERCUSSION INSTRUMENT TUNER MICROBIOLOGY - GENERAL ORD ERABLES Final Result [facility] [address] [place] [address] documented in this encounter Visit Diagnoses Diagnosis Encounter for other general examination documented in this encounter Additional Health Concerns Infection Onset Date Last Indicated Resolved Time MDR-GNR Comment:IP Note: MDR-GNR positive Proteus in urine 02/26/23 A Ross 03/05/23 03/05/2023 03/05/2023 documented as of this encounter Care Teams Credentialing Manager Relationship Specialty Start Date End Date None, Provider PCP - General 07/15/16 documented as of this encounter
--- OUTSIDE RECORDS SUMMARY | 2024-11-04 00:21 | XMS_ITS | Encounter Summary ---
Author Organization [facility] Address [address] [place] [address] Care Team Providers Care Special Agent In Charge Name Role Phone None, Provider Primary Care Provider Unavailabl e Reason for Visit * (Routine) - Receiving Office to Obtain Authorization Specialty Diagnoses / Procedures Referred By Ness palacio Referred To Contact Procedures MR OUTSIDE IMAGES MSK Unknown, Provider, MD Referral ID Status Reason Start Date Expiration Date Visits Requested Visits Authorized [id number] Receiving Office to Obtain Authorization 04/04/2021 1 1 Encounter Details Date Type Department Care Team (Latest Contact Info) Description 03/18/2021 - 03/18/2021 23:59 EDT Hospital Encounter [facility] Secondary Reads [place] Discharge Disposition: Home [...] 18:06 EDT This is a non-reportable exam. us Provider Unknown MD IMG OTHER IMAGING ORDERABLES Final Result documented in this encounter Visit Diagnoses Not on filedocumented in this encounter Care Teams Special Agent In Charge Relationship Specialty Start Date End Date None, Provider PCP - General 07/15/16 documented as of this encounter
--- OUTSIDE RECORDS SUMMARY | 2024-11-04 00:21 | XMS_ITS | Encounter Summary ---
Author Organization [facility] Address [address] [place] [address] Care Team Providers Care Cart Driver Name Role Phone None, Provider Primary Care Provider Unavailabl e Encounter Details Date Type Department Care Team (Late st Contact Info) Description 07/31/2022 Lab Requisition [facility] Pathology & Laboratory Medicine - [facility] [address] [place] [address] Outr Resulting Lab, Provider Social History Tobacco [...] 20 - 40 mg/dL 08/01/2022 10:16 EDT [facility] Blood VENOUS BLOOD / Unknown 07/30/2022 13:30 EDT 07/31/2022 18:17 EDT us Provider Outr Resulting Lab CHEMISTRY & BLOOD GA S ORDERABLES Final Result [facility] [address] [place] [address] documented in this encounter Visit Diagnoses Not on filedocumented in this encounter Additional Health Concerns Infection Onset Date Last Indicated Resolved Time MDR-GNR Comment:IP Note: MDR-GNR positive Proteus in urine 02/26/23 A Ross 03/05/23 03/05/2023 03/05/2023 documented as of this encounter Care Teams Cart Driver Relationship Specialty Start Date End Date None, Provider PCP - General 07/15/16 documented as of this encounter
--- OUTSIDE RECORDS SUMMARY | 2024-11-04 00:21 | XMS_ITS | Encounter Summary ---
Author Organization [facility] Address [address] [place] [address] Care Team Providers Care Batch Or Continuous Still Operator Name Role Phone None, Provider Primary Care Provider Unavailabl e Encounter Details Date Type Department Care Team (Late st Contact Info) Description 04/26/2021 Lab Requisition [facility] Pathology & Laboratory Medicine - [facility] [address] [place] [address] Outr Resulting Lab, Provider Social History Tobacco [...] 20 - 40 mg/dL 04/29/2021 9:37 EDT [facility] Blood VENOUS BLOOD / Unknown 04/26/2021 6:15 EDT 04/26/2021 16:32 EDT us Provider Outr Resulting Lab CHEMISTRY & BLOOD GA S ORDERABLES Final Result [facility] [address] [place] [address] documented in this encounter Visit Diagnoses Not on filedocumented in this encounter Additional Health Concerns Infection Onset Date Last Indicated Resolved Time MDR-GNR Comment:IP Note: MDR-GNR positive Proteus in urine 02/26/23 A Ross 03/05/23 03/05/2023 03/05/2023 documented as of this encounter Care Teams Batch Or Continuous Still Operator Relationship Specialty Start Date End Date None, Provider PCP - General 07/15/16 documented as of this encounter
--- OUTSIDE RECORDS SUMMARY | 2024-11-04 00:21 | XMS_ITS | Encounter Summary ---
Author Organization [facility] Address [address] [place] [address] Care Team Providers Care Warehouse Shipper Name Role Phone None, Provider Primary Care Provider Unavailabl e Encounter Details Date Type Department Care Team (Late st Contact Info) Description 02/27/2021 Lab Requisition [facility] Pathology & Laboratory Medicine - [facility] [address] [place] [address] Outr Resulting Lab, Provider Social History Tobacco [...] 20 - 40 mg/dL 02/28/2021 8:45 EDT [facility] Blood VENOUS BLOOD / Unknown 02/27/2021 6:10 EDT 02/27/2021 15:47 EDT us Provider Outr Resulting Lab CHEMISTRY & BLOOD GA S ORDERABLES Final Result [facility] [address] [place] [address] documented in this encounter Visit Diagnoses Not on filedocumented in this encounter Additional Health Concerns Infection Onset Date Last Indicated Resolved Time MDR-GNR Comment:IP Note: MDR-GNR positive Proteus in urine 02/26/23 A Ross 03/05/23 03/05/2023 03/05/2023 documented as of this encounter Care Teams Warehouse Shipper Relationship Specialty Start Date End Date None, Provider PCP - General 07/15/16 documented as of this encounter
--- OUTSIDE RECORDS SUMMARY | 2024-11-04 00:21 | XMS_ITS | Encounter Summary ---
Author Organization [facility] Address [address] [place] [address] Care Team Providers Care Hydro Pneumatic Tester Name Role Phone None, Provider Primary Care Provider Unavailabl e Encounter Details Date Type Department Care Team (Late st Contact Info) Description 2022 Lab Requisition [facility] Pathology & Laboratory Medicine - [facility] [address] [place] [address] Outr Resulting Lab, Provider Social History Tobacco [...] Swab 2022 9:38 EDT 2022 21:36 EDT us Provider Outr Resulting Lab MICROBIOLOGY - GENER AL ORDERABLES Final Result [facility] [address] [place] [address] * COVID-19 TESTING (2022 9:38 EDT) COVID-19 rt-PCR Result Negative Negative 2022 22:42 EDT [facility] Comment: This test [...] history, and epidemiological information. Performed on the [employer] GeneXpert Instrument Performing Lab GeneXpert [facility] Lab 2022 22:42 EDT [facility] Swab 2022 9:38 EDT 2022 21:36 EDT us Provider Outr Resulting Lab MICROBIOLOGY - GENER AL ORDERABLES Final Result Performing Organization Address [facility] Co de Phone Number [facility] [address] [place] [address] documented in this encounter Visit Diagnoses Not on filedocumented in this encounter Additional Health Concerns Infection Onset Date Last Indicated Resolved Time MDR-GNR Comment:IP Note: MDR-GNR positive Proteus in urine 02/26/23 A Ross 03/05/23 03/05/2023 03/05/2023 documented as of this encounter Care Teams Hydro Pneumatic Tester Relationship Specialty Start Date End Date None, Provider PCP - General 07/15/16 documented as of this encounter
--- OUTSIDE RECORDS SUMMARY | 2024-11-04 00:21 | XMS_ITS | Encounter Summary ---
Author Organization [facility] Address [address] [place] [address] Care Team Providers Care Fiberglass Autobody Repairer Name Role Phone None, Provider Primary Care Provider Unavailabl e Encounter Details Date Type Department Care Team (Late st Contact Info) Description 03/02/2023 Lab Requisition [facility] Pathology & Laboratory Medicine - [address] [address] Scarlett Zhu MD [address] [place] [phone] Encounter for other general examination Social History [...] ID Proteus mirabilis(A ) 03/05/2023 11:15 EDT [facility] Comment: Use of cefazolin [...] only cefpodoxime and cephalexin are on the [facility] inpatient formulary. ? Organism (organism) URINE SPECIMEN [...] MICROBIOLOGY - GENERAL AMANDA DIXON Final Result [facility] [address] [place] [address] documented in this encounter Visit Diagnoses Diagnosis Encounter for other general examination documented in this encounter Additional Health Concerns Infection Onset Date Last Indicated Resolved Time MDR-GNR Comment:IP Note: MDR-GNR positive Proteus in urine 02/26/23 A Ross 5/02/2203/05/2023 03/05/2023 documented as of this encounter Care Teams Fiberglass Autobody Repairer Relationship Specialty Start Date End Date None, Provider PCP - General 07/15/16 documented as of this encounter
--- OUTSIDE RECORDS SUMMARY | 2024-11-04 00:21 | XMS_ITS | Encounter Summary ---
Author Organization [facility] Address [address] [place] [address] Care Team Providers Care Cattle Shipper Name Role Phone None, Provider Primary Care Provider Unavailabl e Reason for Visit * (Routine) - Receiving Office to Obtain Authorization Specialty Diagnoses / Procedures Referred By Ness palacio Referred To Contact Procedures CT OUTSIDE IMAGES BODY Unknown, Provider, MD Referral ID Status Reason Start Date Expiration Date Visits Requested Visits Authorized [id number] Receiving Office to Obtain Authorization 04/08/2021 1 1 Encounter Details Date Type Department Care Team (Latest Contact Info) Description 03/30/2021 Hospital Encounter [facility] Secondary Reads [place] Discharge Disposition: Home [...] 21:58 EDT This is a non-reportable exam. us Provider Unknown MD IMG OTHER IMAGING ORDERABLES Final Result documented in this encounter Visit Diagnoses Not on filedocumented in this encounter Care Teams Cattle Shipper Relationship Specialty Start Date End Date None, Provider PCP - General 07/15/16 documented as of this encounter
--- OUTSIDE RECORDS SUMMARY | 2024-11-04 00:21 | XMS_ITS | Encounter Summary ---
Author Organization [facility] Address [address] [place] [address] Care Team Providers Care Industrial Relations Counselor Name Role Phone None, Provider Primary Care Provider Unavailabl e Encounter Details Date Type Department Care Team (Late st Contact Info) Description 04/07/2023 Lab Requisition [facility] Pathology & Laboratory Medicine - [facility] [address] [place] [address] Scarlett Zhu MD [address] [place] [id number] Urinary tract infection, site not specified Social [...] mirabilis( A) VITEK SUSCEPTIBILITY 04/10/2023 14:36 EDT [facility] Comment: Use of cefazolin [...] cefpodoxime and cephalexin are on the [facility] inpatient formulary. ? Organism (organism) URINE [...] MICROBIOLOGY - GENERAL AMANDA DIXON Final Result [facility] [address] [place] [address] documented in this encounter Visit Diagnoses Diagnosis Urinary tract infection, site not specified documented in this encounter Additional Health Concerns Infection Onset Date Last Indicated Resolved Time MDR-GNR Comment:IP Note: MDR-GNR positive Proteus in urine 02/26/23 A Ross 03/05/23 03/05/2023 03/05/2023 documented as of this encounter Care Teams Industrial Relations Counselor Relationship Specialty Start Date End Date None, Provider PCP - General 07/15/16 documented as of this encounter
--- OUTSIDE RECORDS SUMMARY | 2024-11-04 00:21 | XMS_ITS | Encounter Summary ---
Author Organization [facility] Address [address] [place] [address] Care Team Providers Care Skate Boarder Name Role Phone Unavailable Primary Care Provider Unavailabl e Encounter Details Date Type Department Care Team (Latest Contact Info) Description 07/10/2016 12:14 EDT - 07/10/2016 23:59 EDT Hospital Encounter [address] [address] Unknown, Provider, Discharge Disposition: Home or Self [...] Code Departure Means Destination Home or Self Jail documented in this encounter Plan of Treatment Not on file documented as of this encounter Visit Diagnoses Not on filedocumented in this encounter
--- OUTSIDE RECORDS SUMMARY | 2024-11-04 00:21 | XMS_ITS | Encounter Summary ---
Author Organization [facility] Address [address] [place] [address] Care Team Providers Care Vest Tailor Name Role Phone None, Provider Primary Care Provider Unavailabl e Encounter Details Date Type Department Care Team (Late st Contact Info) Description 03/12/2022 Lab Requisition [facility] Pathology & Laboratory Medicine - [facility] [address] [place] [address] Outr Resulting Lab, Provider Social History Tobacco [...] 03/12/2022 13:4 7 EDT 03/12/2022 21:53 EDT us Provider Outr Resulting Lab MICROBIOLOGY - GENER AL ORDERABLES Final Result Performing Organization Address City/State/[facility] de Phone Number [facility] [address] [place] [address] * COVID-19 TESTING (03/12/2022 13:47 EDT) COVID-19 rt-PCR Result Negative Negative 03/13/2022 0:53 EDT [facility] Comment: This test has [...] history, and epidemiological information. Performed on the [employer] instrument Performing Lab [place] [facility] Lab 03/13/2022 0:53 EDT [facility] Swab 03/12/2022 13:4 7 EDT 03/12/2022 21:53 EDT us Provider Outr Resulting Lab MICROBIOLOGY - GENER AL ORDERABLES Final Result Performing Organization Address [facility] Co de Phone Number [facility] [address] [place] [address] documented in this encounter Visit Diagnoses Not on filedocumented in this encounter Additional Health Concerns Infection Onset Date Last Indicated Resolved Time MDR-GNR Comment:IP Note: MDR-GNR positive Proteus in urine 02/26/23 A Ross 03/05/23 03/05/2023 03/05/2023 documented as of this encounter Care Teams Vest Tailor Relationship Specialty Start Date End Date None, Provider PCP - General 07/15/16 documented as of this encounter
--- OUTSIDE RECORDS SUMMARY | 2024-11-04 00:21 | XMS_ITS | Encounter Summary ---
Author Organization [facility] Address [address] [place] [address] Care Team Providers Care Panel Machine Tender Name Role Phone None, Provider Primary Care Provider Unavailabl e Reason for Visit * (Routine) - Receiving Office to Obtain Authorization Specialty Diagnoses / Procedures Referred By Ness palacio Referred To Contact Procedures XR OUTSIDE IMAGES CHEST Unknown, Provider, MD Referral ID Status Reason Start Date Expiration Date Visits Requested Visits Authorized [id number] Receiving Office to Obtain Authorization 04/04/2021 1 1 Encounter Details Date Type Department Care Team (Latest Contact Info) Description 03/15/2021 - 03/15/2021 23:59 EDT Hospital Encounter [facility] Secondary Reads [place] Discharge Disposition: Home [...] 18:05 EDT This is a non-reportable exam. us Provider Unknown IMFawn OTHER IMAGING ORDERABLES Final Result documented in this encounter Visit Diagnoses Not on filedocumented in this encounter Care Teams Panel Machine Tender Relationship Specialty Start Date End Date None, Provider PCP - General 07/15/16 documented as of this encounter
--- OUTSIDE RECORDS SUMMARY | 2024-11-04 00:21 | XMS_ITS | Encounter Summary ---
Author Organization [facility] Address [address] [place] [address] Care Team Providers Care Analytical Engineer Name Role Phone None, Provider Primary Care Provider Unavailabl e Encounter Details Date Type Department Care Team (Late st Contact Info) Description 06/26/2023 Lab Requisition [facility] Pathology & Laboratory Medicine - [address] [address] Genevieve Baez MD [address] [place] [phone] Encounter for other general examination Social [...] ID Proteus mirabilis(A ) 06/30/2023 8:24 EDT [facility] Comment: Use of cefazolin [...] only cefpodoxime and cephalexin are on the [facility] inpatient formulary. ? Organism URINE SPECIMEN OBTAINED [...] xazole VITEK SUSCEPTIBILITY >=320 ug/mL: Resistant us Genevieve Baez MD MICROBIOLOGY - GENERAL ORDERAB LES Final Result [facility] [address] [place] [address] documented in this encounter Visit Diagnoses Diagnosis Encounter for other general examination documented in this encounter Additional Health Concerns Infection Onset Date Last Indicated Resolved Time MDR-GNR Comment:IP Note: MDR-GNR positive Proteus in urine 02/26/23 A Ross 03/05/23 03/05/2023 03/05/2023 documented as of this encounter Care Teams Analytical Engineer Relationship Specialty Start Date End Date None, Provider PCP - General 07/15/16 documented as of this encounter
--- OUTSIDE RECORDS SUMMARY | 2024-11-04 00:21 | XMS_ITS | Encounter Summary ---
Author Organization [facility] Address [address] [place] [address] Care Team Providers Care Videogame Tester Name Role Phone None, Provider Primary Care Provider Unavailabl e Reason for Visit * (Routine) - Receiving Office to Obtain Authorization Specialty Diagnoses / Procedures Referred By Ness t Referred To Contact Procedures XR OUTSIDE IMAGES BODY Unknown, Provider, MD Referral ID Status Reason Start Date Expiration Date Visits Requested Visits Authorized [id number] Receiving Office to Obtain Authorization 04/04/2021 1 1 Encounter Details Date Type Department Care Team (Latest Contact Info) Description 03/30/2021 - 03/30/2021 23:59 EDT Hospital Encounter [facility] Secondary Reads [place] Discharge Disposition: Home [...] 18:48 EDT This is a non-reportable exam. us Provider Unknown IMFawn OTHER IMAGING ORDERABLES Final Result documented in this encounter Visit Diagnoses Not on filedocumented in this encounter Care Teams Videogame Tester Relationship Specialty Start Date End Date None, Provider PCP - General 07/15/16 documented as of this encounter
--- OUTSIDE RECORDS SUMMARY | 2024-11-04 00:21 | XMS_ITS | Encounter Summary ---
Author Organization [facility] Address [address] [place] [address] Care Team Providers Care Fiber Analyst Name Role Phone None, Provider Primary Care Provider Unavailabl e Encounter Details Date Type Department Care Team (Late st Contact Info) Description 05/20/2023 Lab Requisition [facility] Pathology & Laboratory Medicine - [address] [address] Lucie Choudhury [address] [place] [address] [place] [phone] Urinary tract infection, site not specified Social [...] mirabilis( A) VITEK SUSCEPTIBILITY 05/28/2023 13:37 EDT [facility] Comment: Use of cefazolin [...] only cefpodoxime and cephalexin are on the [facility] inpatient formulary. ? Organism (organism) URINE [...] xazole VITEK SUSCEPTIBILITY >=320 ug/mL: Resistant us Lucie Choudhury MICROBIOLOGY - GENERAL ORDERABLE S Final Result [facility] [address] [place] [address] documented in this encounter Visit Diagnoses Diagnosis Urinary tract infection, site not specified documented in this encounter Additional Health Concerns Infection Onset Date Last Indicated Resolved Time MDR-GNR Comment:IP Note: MDR-GNR positive Proteus in urine 02/26/23 A Ross 03/05/23 03/05/2023 03/05/2023 documented as of this encounter Care Teams Fiber Analyst Relationship Specialty Start Date End Date None, Provider PCP - General 07/15/16 documented as of this encounter
--- OUTSIDE RECORDS SUMMARY | 2024-11-04 00:21 | XMS_ITS | Encounter Summary ---
Author Organization [facility] Address [address] [place] [address] Care Team Providers Care Plastic Worker Name Role Phone None, Provider Primary Care Provider Unavailabl e Encounter Details Date Type Department Care Team (Late st Contact Info) Description 01/26/2021 Lab Requisition [facility] Pathology & Laboratory Medicine - [facility] [address] [place] [address] Outr Resulting Lab, Provider Social History Tobacco [...] Not Detected Not Detected 01/28/2021 18:[address] [facility] Comment: This test has not [...] or revoked sooner. ??Factsheets for healthcare providers: ??https://www.fda.gov/media/587222/download Factsheets for patients: https://www.fda.gov/media/734064/download Negative results do not preclude infection with SARS-CoV-2 virus, and should not be the sole basis of a patient management decision. Swab ENTIRE NASOPHARYNX / Unknown 01/26/2021 13:00 EDT 01/26/2021 21:24 EDT us Provider Outr Resulting Lab MICROBIOLOGY - GENER AL ORDERABLES Final Result Performing Organization Address City/State/[facility] Co de Phone Number [facility] [address] [place], [place] [address] * COVID-19 TESTING (01/26/2021 13:00 EDT) COVID-19 rt-PCR Result Not Detected Not Detected 01/28/2021 18:[address] [facility] Comment: This test has not [...] or revoked sooner. ??Factsheets for healthcare providers: ??https://www.fda.gov/media/592343/download Factsheets for patients: https://www.fda.gov/media/909556/download Negative results do not preclude infection with SARS-CoV-2 virus, and should not be the sole basis of a patient management decision. Performing Lab [facility] 01/28/2021 18:53 EDT [facility] Swab 01/26/2021 13:0 0 EDT 01/26/2021 21:24 EDT us Provider Outr Resulting Lab MICROBIOLOGY - GENER AL ORDERABLES Final Result [facility] [address] LABORATORY [address] [place] [address] documented in this encounter Visit Diagnoses Not on filedocumented in this encounter Additional Health Concerns Infection Onset Date Last Indicated Resolved Time MDR-GNR Comment:IP Note: MDR-GNR positive Proteus in urine 02/26/23 A Ross 03/05/23 03/05/2023 03/05/2023 documented as of this encounter Care Teams Plastic Worker Relationship Specialty Start Date End Date None, Provider PCP - General 07/15/16 documented as of this encounter
--- OUTSIDE RECORDS SUMMARY | 2024-11-04 00:21 | XMS_ITS | Encounter Summary ---
Author Organization [facility] Address [address] [place] [address] Care Team Providers Care Distributor Advertising Material Name Role Phone None, Provider Primary Care Provider Unavailabl e Encounter Details Date Type Department Care Team (Late st Contact Info) Description 09/17/2023 Lab Requisition [facility] Pathology & Laboratory Medicine - [address] [address] Genevieve Davis, KURT Urinary tract infection, site not specified Social [...] mirabilis( A) VITEK SUSCEPTIBILITY 09/19/2023 16:22 EST [facility] Comment: Use of [...] cefpodoxime and cephalexin are on the [facility] inpatient formulary. ? Organism URINE / [...] VITEK SUSCEPTIBILITY >=320 ug/mL: Resistant Genevieve Davis [facility] MICROBIOLOGY - GENERAL ORD ERABLES Final Result [facility] [address] [place] [address] documented in this encounter Visit Diagnoses Diagnosis Urinary tract infection, site not specified documented in this encounter Additional Health Concerns Infection Onset Date Last Indicated Resolved Time MDR-GNR Comment:IP Note: MDR-GNR positive Proteus in urine 02/26/23 A Ross 03/05/23 03/05/2023 03/05/2023 documented as of this encounter Care Teams Distributor Advertising Material Relationship Specialty Start Date End Date None, Provider PCP - General 07/15/16 documented as of this encounter
--- OUTSIDE RECORDS SUMMARY | 2024-11-04 00:21 | XMS_ITS | Encounter Summary ---
Author Organization [facility] Address [address] [place] [address] Care Team Providers Care Circuit Board Assembler Name Role Phone None, Provider Primary Care Provider Unavailabl e Encounter Details Date Type Department Care Team (Late st Contact Info) Description 09/02/2023 Lab Requisition [facility] Pathology & Laboratory Medicine - [facility] [address] [place] [address] Nevaeh Ivey MD [address] [place] [phone] Urinary tract infection, site not specified Social [...] mirabilis( A) VITEK SUSCEPTIBILITY 09/04/2023 14:44 EDT [facility] Comment: Organism identification performed [...] only cefpodoxime and cephalexin are on the [facility] inpatient formulary. ? Organism URINE / [...] ug/mL: Resistant Nevaeh Ivey MD MICROBIOLOGY - [facility] AL ORDERABLES Final Result [facility] [address] [place] [address] documented in this encounter Visit Diagnoses Diagnosis Urinary tract infection, site not specified documented in this encounter Additional Health Concerns Infection Onset Date Last Indicated Resolved Time MDR-GNR Comment:IP Note: MDR-GNR positive Proteus in urine 02/26/23 Femi Ross 03/05/23 03/05/2023 03/05/2023 documented as of this encounter Care Teams Circuit Board Assembler Relationship Specialty Start Date End Date None, Provider PCP - General 07/15/16 documented as of this encounter
--- OUTSIDE RECORDS SUMMARY | 2024-11-04 00:21 | XMS_ITS | Clinical Summary ---
Author Organization [facility] Address [address] [place] [address] Care Team Providers Care Escrow Processor Name Role Phone None, Provider Primary Care [...] 3-dose series) 04/12 COVID-19 Vaccine ( season) 2024 Additional Health Concerns Infection Onset Date Last Indicated MDR-GNR Comment:IP Note: MDR-GNR positive Proteus in urine 02/26/23 A Ross 03/05/23 03/05/2023 03/05/2023 Insurance ANTHEM Care Teams Escrow Processor Relationship Specialty Start Date End Date None, Provider PCP - General 07/15/16
--- OUTSIDE RECORDS SUMMARY | 2024-11-04 00:22 | XMS_ITS | Encounter Summary ---
Author Organization [place] [address] Care Team Providers Care Chemical Engineering Technologist Name Role Phone Genevieve Baez MD Primary Care Provider [phone] Encounter Details Date Type Department Care Team (Late st Contact Info) Description 06/25/2024 Interpretation Only [address] [phone] Thom Albrecht MD [address] [place] [id number] Social History Tobacco Use Types Packs/Day Years Used Date Smoking Tobacco: Never Smokeless Tobacco: Never Alcohol Use Standard Drinks/Week Comments Never 0 (1 standard drink = 0.6 oz pur e alcohol) [facility] Utilities Answer Date Recorded In the past 12 months has [employer] electric, gas, oil, or water company threatened [...] place to sleep or slept in a penitentiary (including now)? No 03/18/2024 IPV Inpatient Questions [...] PM EDT) PT CLASS I RAD ADMITDTTM [id number] RAD PT [facility] MD INFO [id number]^Mcdoug all^Thom^Terry RAD EXAM DESC CTHDW^CT Head w/ Contrast^RIS [facility] WORKSTATION ID [id number] [facility] Anatomical Region Laterality Modality Head Computed [...] who have questions please contact the health direct care worker that requested your imaging first. ? Electronically signed by: Shilpa Cain MD, [facility] ([phone]), at 06/25/2024 4:50 PM Narrative 06/25/2024 4:50 [...] patients who have questions please contactthe health direct care worker that requested your imaging first. Electronically signed by: Shilpa Cain MD, [facility]([phone]), at 06/25/2024 4:50 PM Thom Albrecht MD IMG CT ORDERABLES documented in this encounter Visit Diagnoses Not on filedocumented in this encounter Care Teams Chemical Engineering Technologist Relationship Specialty Start Date End Date Genevieve Baez MD [address] [place] [address] PCP - General Family Medicine 07/22/23 documented as of this encounter
--- OUTSIDE RECORDS SUMMARY | 2024-11-04 00:22 | XMS_ITS | Encounter Summary ---
[place] [address] Care Team Providers Care Mall Manager Name Role Phone Genevieve Baez MD Primary Care Provider [phone] Reason for Referral * Home Health Care (Routine) - Closed Specialty Diagnoses / Procedures Referred By Ness palacio Referred To Contact Diagnoses Complicated UTI (urinary tract infection) [place] [address] Referral ID Status Reason Start Date Expiration Date V isits Requested Visits Authorized [id number] Closed Consult, Test & Treat 03/21/2024 09/17/2024 999 999 Reason for Visit * Reason Comments Fever * Auth/Cert (Routine) Specialty Diagnoses / Procedures Referred By Ness palacio Referred To Contact Diagnoses Complicated UTI (urinary tract infection) [place] [address] [facility] Referral ID Status Reason Start Date Expiration Date Visits Re quested Visits Authorized [id number] 1 1 Encounter Details Date Type Department Care Team (Latest Contact Info) Description 03/16/2024 5:10 PM EDT - 03/21/2024 5:30 PM EDT Hospital Encounter Surgical Unit Level [address] [place] [address] Dedra Ibarra MD [facility] [place] [address] [place] [address] [place] [address] [place] [address] [place] [address] Urinary tract infection associated with catheterization of urinary tract, unspecified indwelling urinary catheter type, initial encounter; Complicated UTI (urinary tract infection) Discharge Disposition: Home with VNA Social History Tobacco Use Types Packs/Day Years Used Date Smoking Tobacco: Never Smokeless Tobacco: Never Alcohol Use Standard Drinks/Week Comments Never 0 (1 standard drink = 0.6 oz pur e alcohol) [facility] Utilities Answer Date Recorded In the past 12 months has [employer], gas, oil, or water [employer] threatened to shut off services in your [...] place to sleep or slept in a chcf (including now)? No 03/18/2024 DH IPV Inpatient [...] his daughter, the patient was admitted at [facility] for pneumonia couple months ago, was also treated for URI, sepsis. He has UTIs multiple times and has been on abx for chronic osteomyelitis. Per meddispense hx, he was placed on multiple antibiotics since December. Recently, was treated for UTI with bactrim. 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 # Decubital ulcer Lt buttock, hx of chronic osteomyelitis Wound care consult on HD1 w/o c/f active decubital SSTI or osteomyelitis. Important Studies and Lab Data: Recent Labs 03/20/24 0603/19/24 03403/18/24 0603/16/24 2024 WBC 4.7 4.5 5.1 [...] 84 86 82 107 Recent Labs 03/20/24 0624 0345 03/18/24 0600 03/16/24 1743 CALCIUM 8.8 9.0 8.7 9.5 MAGNESIUM -- -- -- 0.78 No results for input(s): AST, ALT, ALKPHOS, BILITOT, BILIDIR in the last 168 hours. Recent Labs 03/16/24 1743 INR 1.2 Recent Labs 10/25/23 0758 HA1C 4.8 Microbiology: Microbiology Results (Last 30 days) Procedure Component Value Units Date/Time Urine culture [[id number]] (Abnormal) (Susceptibility) Collected: 03/16/242117 Lab Status: Final result Specimen: Indwelling Catheter Urine Updated: 03/18/24 08 Urine Culture 10,000-49,000 cfu/ml Proteus mirabilis Susceptibility [...] in critically ill patients. Respiratory Panel PCR [[id number]] Collected: 03/16/24 1826 Lab Status: Final result Specimen: Nasopharyngeal Swab Updated: 03/16/242026 Resp Panel Source REAL ESTATE MARKETING COORDINATOR Swab Resp Panel PCR Negative Comment: Respiratory Panels are performed on the MOG, using multiplexed PCR nucleic acid detection. Negative [...] diagnosis of COVID-19 is performed using the [employer] Respiratory Panel 2.1 (True Fit) as authorized by the FDA issued Emergency Use Authorization (EUA). This panel also tests for multiple other viral and bacterial pathogens. This assay is intended for In-vitro Diagnostic (IVD) use with nasopharyngeal swabs in viral transport media. The assay is performed based on the instructions for use and additional guidance provided by the FDA. Testing is performed in laboratories within the [facility], each of which is certified under the [...] fact sheets at the following FDA website: https://www.fda.gov/medical-devices/ceomlydpwfy-icadife-0333-bkowx-54-iwewljirj- yml-ueuvoepieqahhq-lepzrmw-devices/gwnoo-ckgnmtilvmp-thkm Human Metapneumovirus Not Detected Human Rhino/Enterovirus Not Detected Influenza A Not Detected Influenza B Not Detected Parainfluenza 1 Not Detected Parainfluenza 2 Not Detected Parainfluenza 3 Not Detected Parainfluenza 4 Not Detected Respiratory Syncytial Virus Not Detected Chlamydophila pneumoniae Not Detected Mycoplasma pneumoniae Not Detected Blood culture [[id number]] Collected: 03/16/24 1825 Lab Status: Preliminary result Specimen: Blood Updated: 03/20/24 2301 Blood Culture No growth at 4 days. Blood culture [[id number]] Collected: 03/16/24 1743 Lab Status: Preliminary result Specimen: Blood Updated: 03/20/24 2301 Blood Culture No growth at 4 days. Pertinent radiology/diagnostic studies: Results for orders placed or performed during the hospital encounter of 03/16/24 XR Chest One View (Exam End: 03/16/2024 5:59 PM) Result Value WORKSTATION ID [id number] Impression No evidence of pneumonia or other acute cardiopulmonary process. Thank you for letting us participate in the care of this patient. If you are a health care provider and have any questions regarding this report, please contact the number below. For patients who have questions please contact the health emergency care tech that requested your imaging first. Abdomen & Pelvis wo Contrast (Exam End: 03/18/2024 5:39 PM) Result Value WORKSTATION ID [id number] Impression 1. Unexpected finding concerning for retained [...] who have questions please contact the health emergency care tech that requested your imaging first. Vital Signs [...] MD , PCP [address] / [facility] [address] Your Inpatient Doctor(s) at [facility]: Eusebio Loomis MD Your Primary Care Provider: Genevieve Baez MD [address] / [facility] [address] For questions regarding this document or issues relating to this hospitalization on the Medical Service, please contact your inpatient physician through the [facility] Senior Supplier Quality Engineer . Issues afterhours and on weekends will [...] any issues or concerns once you leave [facility], we apologize for any undue stress [...] Future Orders Complete By Expires Referral to [facility] [REF34 Custom] As directed Process Instructions: If no progress note charted, please enter Clinical details in comments. Scheduling Instructions: Comments: Please evaluate Bruce Velasquez Jr. [facility] [address] ([facility] Date of : 1965 Inpatient DOCUMENTATION FOR VNA SERVICES (INCLUDING THOSE PATIENTS WITH MEDICARE COVERAGE REQUIRING HOME VNA SERVICES AND/OR HOSPICE SERVICES) PATIENT'S LOCATION: [facility] [address] (home) Cell: Telephone Information: Sports Intern's Name: self In discussion with the attending physician, it is certified that this patient is under their care and that they, or a Nurse Practitioner, Clinical Nurse specialist or Physician Head Of Talent Management who is working directly with them, had [...] activities, ie. dressing/bathing HOME HEALTH CARE AGENCY: [facility] [address] [address] START OF CARE: within 24-48 hours of [...] Genevieve Baez MD [address] / [facility] [address] . All VNA agencies which cover the area of patient's residence have been reviewed, either verbally or in writing, and patient/family have chosen the home health care agency noted. Questions: Disciplines Requested: Home Health Aide Occupational Therapy Physical Therapy Nursing For questions regarding this document or issues relating to this hospitalization on the Medical Service, please contact your inpatient physician through the [facility] Senior Supplier Quality Engineer . Issues afterhours and on weekends will [...] MD , PCP [address] / [facility] [address] Your Inpatient Doctor(s) at [facility]: Eusebio Loomis MD Your Primary Care Provider: Genevieve Baez MD [address] / [facility] [address] For questions regarding this document or issues relating to this hospitalization on the Medical Service, please contact your inpatient physician through the [facility] Senior Supplier Quality Engineer . Issues afterhours and on weekends will [...] any issues or concerns once you leave [facility], we apologize for any undue stress [...] Sig Dispensed Refills Start Date End Date multivitamin (THERAGRAN) Tablet Take 1 tablet by [...] Cream Apply topically daily. 30 g 11/09/2023 docusate sodium (Colace) 100 mg Capsule Take 100 mg by mouth 3 times daily. 01/13/2021 acetaminophen (Tylenol) 500 mg Tablet Take 1,000 mg by mouth Every 8 hours as needed. 01/13/2021 L. acidophilus/L.bulgaric us (FLORANEX ORAL) Take 1 tablet by mouth 3 times daily. baclofen (Lioresal) 20 mg tablet Take 3 [...] until your urology procedure 84 capsule 03/21/2024 naloxone (Narcan) 1 mg/mL Syringe For opioid overdose,spray 1 mL in each nostril. Repeat after 3-5 minutes if no or minimal response. Call 911 before administration. 4 mL 11/09/2023 documented as of this encounter Progress Notes * Florentin Dhaliwal, RN - 03/21/2024 5:28 PM EDT Patient discharged to home by BLS transport. Med Dormify de-accessed, site benign. My assessment remains unchanged from my previous assessment. RN Discussed pain management with patient, pain tolerable.Patient has all belongings and supplies needed. Patient received After Visit Summary and prescriptions. These were reviewed, patient verbalizes understanding of AVS. All questions answered. Patient encouraged to call with questions or concerns. Pt expressed thanks for care received by this data analyst report writer and [facility] staff during hospitalization. * Eusebio Loomis MD [...] spent >30 minutes (Day of Discharge Code 90246) involved in the final examination of the [...] Noni Ernandez - 03/21/2024 10:53 AM EDT [facility] ambulance arranged for 1600 transport. * Danielle Jaime RN - 03/21/2024 10:13 AM EDT Physician Certification Statement for Non-Emergency Ambulance Services Section I - General Information Bruce Velasquez Jr. 1965 Medicare Number: [id number] Transport Date: 03/21/2024 (PCS is valid for round trips on this date and for all repetitive trips in the 60-day range as note/d below.) Origin: [address] [address] Destination: [address] [place] [address] Is the patient's stay covered under Medicare [...] wheelchair van (i.e. seated during transport, without certified medical coding specialist or monitoring?): No 4) In addition to complete questions 1-3 above, please select any of the following conditions that apply: *Note: supporting documentation for any boxes checked must be maintained in the patient's medical records card table attendant required Unable to tolerate seated position [...] the Centers of Medicare and Medicaid Services ([facility]) to support the determination of medical [...] 03/18 in person PCP Genevieve Baez MD [phone] Attestation IPI Certification I certify that I am a D-H credentialed attending provider with admitting privileges and that the patient meets or has met medical necessity to require an inpatient IPI level of care meeting a minimumof two midnights or is on the [facility] [...] Procedure Component Value Units Date/Time Urine culture [[id number]] (Abnormal) (Susceptibility) Collected: 03/16/242117 Lab Status: Final [...] in critically ill patients. Respiratory Panel PCR [[id number]] Collected: 03/16/241825 Lab Status: Final result Specimen: Nasopharyngeal Swab Updated: 03/16/242026 Resp Panel Source REAL ESTATE MARKETING COORDINATOR Swab Resp Panel PCR Negative Comment: Respiratory Panels are performed on the MOG, using multiplexed PCR nucleic acid detection. Negative [...] performed using the [employer] Respiratory Panel 2.1 (True Fit) as authorized by the FDA issued Emergency Use Authorization (EUA). This panel also tests for multiple other viral and bacterial pathogens. This assay is intended for In-vitro Diagnostic (IVD) use with nasopharyngeal swabs in viral transport media. The assay is performed based on the instructions for use and additional guidance provided by the FDA. Testing is performed in laboratories within the [facility], each of which is [...] fact sheets at the following FDA website: https://www.fda.gov/medical-devices/puzvuwjuxfz-mdekuce-8898-otaxf-75-kjcyyhtgt- pwh-nzepahqnseyiqm-lmuxctu-devices/riqvp-quaycduryte-fwhu Human Metapneumovirus Not Detected Human Rhino/Enterovirus Not Detected Influenza A Not Detected Influenza B Not Detected Parainfluenza 1 Not Detected Parainfluenza 2 Not Detected Parainfluenza 3 Not Detected Parainfluenza 4 Not Detected Respiratory Syncytial Virus Not Detected Chlamydophila pneumoniae Not Detected Mycoplasma pneumoniae Not Detected Blood culture [[id number]] Collected: 03/16/24 1825 Lab Status: Preliminary result Specimen: Blood Updated: 03/19/24 2301 Blood Culture No growth at 3 days. Blood culture [[id number]] Collected: 03/16/24 1743 Lab Status: Preliminary result Specimen: Blood Updated: 03/19/24 2301 Blood Culture No growth at 3 days. STUDIES: Results for orders placed or performed during the hospital encounter of 03/16/24 XR Chest One View (Exam End: 03/16/2024 5:59 PM) Result Value WORKSTATION ID [id number] Impression No evidence of pneumonia or other acute cardiopulmonary process. Thank you for letting us participate in the care of this patient. If you are a health care provider and have any questions regarding this report, please contact the number below. For patients who have questions please contact the health emergency care tech that requested your imaging first. Abdomen & Pelvis wo Contrast (Exam End: 03/18/2024 5:39 PM) Result Value WORKSTATION ID [id number] Impression 1. Unexpected finding concerning for retained [...] who have questions please contact the health emergency care tech that requested your imaging first. Medications: Scheduled [...] urgent ureteroscopy in outpatient setting (either at [facility] or with local urologist). Will de-escalate further [...] 03/18 in person PCP Genevieve Baez MD [phone] Attestation IPI Certification I certify that I am a D-H credentialed attending provider with admitting privileges and that the patient meets or has met medical necessity to require an inpatient IPI level of care meeting a minimumof two midnights or is on the [facility] [...] 31.4* PLATELET 133* 122* 117* Recent Labs 03/19/2434403/18/2459903/16/24 1743 NA 144 143 138 K 3.5 3.4* 4.4 CL 107 107 103 CO2 27 25 25 BUN 14 13 22* CREATININE 0.52* 0.59* 0.64* GLUCOSE 86 82 107 CALCIUM 9.0 8.7 9.5 MAGNESIUM -- -- 0.78 No results for input(s): AST, ALT, ALKPHOS, BILITOT, BILIDIR in the last 72 hours. MICRO: Recent Labs 03/16/242117 URINECULTURE 10,000-49,000 cfu/ml Proteus mirabilis* Recent Labs 03/16/24174203/16/24 1825 BLOODCX No growth at 2 days. No growth at 2 days. Microbiology Results (Last 30 days) Procedure Component Value Units Date/Time Urine culture [[id number]] (Abnormal) (Susceptibility) Collected: 03/16/242117 Lab Status: Final [...] in critically ill patients. Respiratory Panel PCR [[id number]] Collected: 03/16/24 1826 Lab Status: Final result Specimen: Nasopharyngeal Swab Updated: 03/16/242026 Resp Panel Source REAL ESTATE MARKETING COORDINATOR Swab Resp Panel PCR Negative Comment: Respiratory Panels are performed on the MOG, using multiplexed PCR nucleic acid detection. Negative [...] diagnosis of COVID-19 is performed using the [employer] Respiratory Panel 2.1 (True Fit) as authorized by the FDA issued Emergency Use Authorization (EUA). This panel also tests for multiple other viral and bacterial pathogens. This assay is intended for In-vitro Diagnostic (IVD) use with nasopharyngeal swabs in viral transport media. The assay is performed based on the instructions for use and additional guidance provided by the FDA. Testing is performed in laboratories within the [facility], each of which is certified under the [...] fact sheets at the following FDA website: https://www.fda.gov/medical-devices/eyvwlklivlw-wykaogj-8243-xiuwb-17-ohjdfmbga- dkh-aekdsummufqfxe-sbqjvem-devices/cfedw-gydtsybdgtm-wifv Human Metapneumovirus Not Detected Human Rhino/Enterovirus Not Detected Influenza A Not Detected Influenza B Not Detected Parainfluenza 1 Not Detected Parainfluenza 2 Not Detected Parainfluenza 3 Not Detected Parainfluenza 4 Not Detected Respiratory Syncytial Virus Not Detected Chlamydophila pneumoniae Not Detected Mycoplasma pneumoniae Not Detected Blood culture [[id number]] Collected: 03/16/24 1825 Lab Status: Preliminary result Specimen: Blood Updated: 03/18/24 2302 Blood Culture No growth at 2 days. Blood culture [[id number]] Collected: 03/16/24 1743 Lab Status: Preliminary result Specimen: Blood Updated: 03/18/24 2302 Blood Culture No growth at 2 days. STUDIES: Results for orders placed or performed during the hospital encounter of 03/16/24 XR Chest One View (Exam End: 03/16/2024 5:59 PM) Result Value WORKSTATION ID [id number] Impression No evidence of pneumonia or other acute cardiopulmonary process. Thank you for letting us participate in the care of this patient. If you are a health care provider and have any questions regarding this report, please contact the number below. For patients who have questions please contact the health emergency care tech that requested your imaging first. Medications: Scheduled [...] times, verbal reassurance provided. Pt seen by composite boat builder. DO Gamboa request to exchange suprapubic cath, [...] 03/18 in person PCP Genevieve Baez MD [phone] Attestation IPI Certification I certify that I am a D-H credentialed attending provider with admitting privileges and that the patient meets or has met medical necessity to require an inpatient IPI level of care meeting a minimumof two midnights or is on the [facility] inpatient only procedure list (status C) due to: complicated UTI Team (25/05 Coverage) 0820 Evgeny Gamboa DO 03/18/2024 Subjective/24hr events: - [...] Procedure Component Value Units Date/Time Urine culture [[id number]] (Abnormal) (Susceptibility) Collected: 03/16/242117 Lab Status: Final [...] in critically ill patients. Respiratory Panel PCR [[id number]] Collected: 03/16/241825 Lab Status: Final result Specimen: Nasopharyngeal Swab Updated: 03/16/242026 Resp Panel Source REAL ESTATE MARKETING COORDINATOR Swab Resp Panel PCR Negative Comment: Respiratory Panels are performed on the MOG, using multiplexed PCR nucleic acid detection. Negative [...] performed using the [employer] Respiratory Panel 2.1 (True Fit) as authorized by the FDA issued Emergency Use Authorization (EUA). This panel also tests for multiple other viral and bacterial pathogens. This assay is intended for In-vitro Diagnostic (IVD) use with nasopharyngeal swabs in viral transport media. The assay is performed based on the instructions for use and additional guidance provided by the FDA. Testing is performed in laboratories within the [facility], each of which is certified under the [...] fact sheets at the following FDA website: https://www.fda.gov/medical-devices/yxwuoutddhd-amexlpb-2779-nafjk-12-bwnqgyavy- jbr-snumhcbqowyiir-kkocrgb-devices/xfvjp-calofbcdaoa-mkoy Human Metapneumovirus Not Detected Human Rhino/Enterovirus Not Detected Influenza A Not Detected Influenza B Not Detected Parainfluenza 1 Not Detected Parainfluenza 2 Not Detected Parainfluenza 3 Not Detected Parainfluenza 4 Not Detected Respiratory Syncytial Virus Not Detected Chlamydophila pneumoniae Not Detected Mycoplasma pneumoniae Not Detected Blood culture [[id number]] Collected: 03/16/24 1825 Lab Status: Preliminary result Specimen: Blood Updated: 03/17/24 230 Blood Culture No growth at 1 day. Blood culture [[id number]] Collected: 03/16/24 1743 Lab Status: Preliminary result Specimen: Blood Updated: 03/17/24 230 Blood Culture No growth at 1 day. STUDIES: Results for orders placed or performed during the hospital encounter of 03/16/24 XR Chest One View (Exam End: 03/16/2024 5:59 PM) Result Value WORKSTATION ID [id number] Impression No evidence of pneumonia or other acute cardiopulmonary process. Thank you for letting us participate in the care of this patient. If you are a health care provider and have any questions regarding this report, please contact the number below. For patients who have questions please contact the health emergency care tech that requested your imaging first. Medications: Scheduled [...] patient asking for different bed. Slid to [facility] bed. Patient allowed for skin assessment [...] Boone RN - 03/17/2024 3:30 PM EDT music video producer consult note - Ostomy team consulted re: current ostomy, needs supplies. 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 We last saw pt in our clinic in June of 2022. I was able to touch base with pt's RN in the ED re: tubing over supplies. Was informed that pt was being transferred to [facility] shortly to room 437-A. I will plan to tube ostomy supplies over to that floor later today for pt's use during his inpt stay. Ostomy team will sign off at this time. CHRYSTAL Dukes, RN, CWOCN 03/17/2024 Enterostomal Therapy Team Pager #[phone] * Evgeny Gamboa DO - 03/17/2024 8:27 AM EDT Images from [...] myself to review PCP Genevieve Baez MD [phone] Attestation IPI Certification I certify that I am a D-H credentialed attending provider with admitting privileges and that the patient meets or has met medical necessity to require an inpatient IPI level of care meeting a minimumof two midnights or is on the [facility] inpatient only procedure list (status C) due to: complicated UTI Team (25/05 Coverage) 2800 Evgeny Gamboa, DO 03/17/2024 Subjective/24hr events: - Admitted last night, Zosyn and vancomycin continued - Pt seen and examined at bedside - Doing well, knows why he is admitted and willing to stay for treatment as long as he can [place] in [place] with his specialist on the 21st - Tolerating diet. ROS: Patient denies fevers, [...] output data in the 24 hours ending 03/17/24826 EXAM GEN: Lying in bed comfortably, NAD, [...] Component Value Units Date/Time Respiratory Panel PCR [[id number]] Collected: 03/16/24 182 Lab Status: Final result Specimen: Nasopharyngeal Swab Updated: 03/16/242026 Resp Panel Source REAL ESTATE MARKETING COORDINATOR Swab Resp Panel PCR Negative Comment: Respiratory Panels are performed on the MOG, using multiplexed PCR nucleic acid detection. Negative [...] performed using the [employer] Respiratory Panel 2.1 (True Fit) as authorized by the FDA issued Emergency Use Authorization (EUA). This panel also tests for multiple other viral and bacterial pathogens. This assay is intended for In-vitro Diagnostic (IVD) use with nasopharyngeal swabs in viral transport media. The assay is performed based on the instructions for use and additional guidance provided by the FDA. Testing is performed in laboratories within the [facility], each of which is certified under the [...] fact sheets at the following FDA website: https://www.fda.gov/medical-devices/idhtlnsjyvj-ryohwhu-8270-dyadv-13-mnfsftnpc- qwm-bnlwkmlrnxiaec-kjckzdc-devices/lmsza-mcfkxdifzpo-ldak Human Metapneumovirus Not Detected Human Rhino/Enterovirus Not [...] 03/16/2024 5:59 PM) Result Value WORKSTATION ID [id number] Impression No evidence of pneumonia or other acute cardiopulmonary process. Thank you for letting us participate in the care of this patient. If you are a health care provider and have any questions regarding this report, please contact the number below. For patients who have questions please contact the health emergency care tech that requested your imaging first. Medications: Scheduled [...] infection ID: [id number] y.o. Male [facility] [place] [facility] with fevers Hx obtained from chart review, [...] his daughter, the patient was admitted at [facility] for pneumonia couple months ago, was also treated for URI, sepsis. He has UTIs multiple times and has been on abx for chronic osteomyelitis. Per meddispense hx, he was placed on multiple antibiotics since December. Recently, was treated for UTI with bactrim. 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 SEGMENT (WRVU 6.43) performed by Robbin Tong MD at [facility] MAIN OR PRO ARTHRODESIS, POST/POSTEROLAT TQ, SNGLE INTERSPACE; CERVICAL BELOW C2 SEGMNT Midline 10/27/2020 @ARTHRODESIS, POSTERIOR CERVICAL SPINE (WRVU 17.4) performed by Robbin Tong MD at [facility] MAIN OR PRO AUTOGRAFT SPINE SURGERY LOCAL FROM SAME INCISION N/A 10/27/2020 AUTOGRAFT FOR SPINE SURGERY ONLY, SAME INCISION (WRVU *) performed by Robbin Tong MD at [facility] MAIN OR PRO CHANGE OF BLADDER TUBE, SIMPLE N/A 10/25/2023 CYSTOSTOMY TUBE, CHANGE (WRVU 0.9) performed by Alfonso Brian MD at [facility] OR PRO CYSTOSCOPY, INSERT URETERAL STENT Right 10/25/2023 CYSTO, STENT PLACEMENT (WRVU 2.82) performed by Alfonso Brian MD at [facility] OR PRO CYSTOSCOPY, REMV CALCULUS, SIMPLE N/A 10/25/2023 CYSTO, REMOVAL OF STENT, FOREIGN BODY OR CALCULUS, SIMPLE (WRVU 2.81) performed by Alfonso Brian MD at [facility] MAIN OR PRO OPEN POST TREAT CERV VERT FX, 1 LVL N/A 10/27/2020 @OPEN TREATMENT &/OR REDUCTION VERTEBRAL FX., CERVICAL (WRVU 20.84) performed by Rosa Tong MD at [facility] MAIN OR PRO PLACE PERCUT GASTROSTOMY TUBE N/A 11/05/2020 ENDOSCOPY W DIRECTED PLACEMENT PERCUTANEOUS GASTROSTOMY TUBE-PEG (WRVU 3.66) performed by Yoel Medellin MD at [facility] MAIN OR PRO POSTERIOR SEGMENTAL INSTRUMENTATION 3-6 VRT SEG N/A 10/27/2020 POST SPINAL INSTRUMENTATION, 3-6 VERTEBRA, NON SEGMENTAL (WRVU 12.56) performed by Robbin Tong MD at [facility] MAIN OR Prior To Admission Medications: (Not [...] Result Value Ref Range Resp Panel Source REAL ESTATE MARKETING COORDINATOR Swab Resp Panel PCR Negative Negative Adenovirus [...] mcL Appearance UA Cloudy (A) Clear Spec [place] UA 1.006 1.005 - 1.030 Color UA [...] miss his important appointment on 03/21 in [place] (related to procedure for his arms), but [...] documented in this encounter ED Notes * Nimisah De La O RN - 03/17/2024 9:48 [...] an appointment to see a neurosurgeon in [place] on 03/22. Will notify care team. * Denae Bonilla RN - 03/17/2024 6:06 AM EDT Pt [...] 03/16/2024 8:18 PM EDT Update given to Nicki Gonzalez. Per Nicki pt is not as [...] who have questions please contact the health emergency care tech that requested your imaging first. Fluid bolus [...] 1758 sodium chloride 0.9% infusion (BMI & Kinsman BW Available for Patient) See Hyperspace for full Linked Orders Report. 500 mL over 15 Minutes Intravenous ONCE 03/16/24 1856 03/16/24 1743 sodium chloride 0.9% infusion (BMI & Kinsman BW Available for Patient) See Hyperspace for full Linked Orders Report. 1,000 mL over 15 Minutes Intravenous ONCE 03/16/24 1840 03/16/24 1728 sodium chloride 0.9% infusion (BMI & Kinsman BW Available for Patient) See Hyperspace for [...] the patient. Shirley Servin MD Resident 03/16/24 2217 Associated attestation - Dedra Ibarra MD - [...] to home with resumption of services with [facility]. Needs for Transition of Care: Plan for discharge is: Home w/ Services Outpatient Agency/Support Group Needs: Homecare agency Home Health Services: Registered Nurse, Home Health Aide, Physical Therapy, Occupational Therapy Agency Referrals & Follow-up Care: Contact information for follow-up [facility] [address] [facility] [address] Transportation: ambulance Ambulance Finance Conversation Completed: 03/21/2024 [...] are in agreement with plan. Danielle Jaime [facility] [phone] * Plan of Care - Luz Chang [...] Hartman MD - 03/20/2024 7:[address] [facility] Department of Urologic Surgery Inpatient Consult [...] of his chart, he was admitted at [facility] for pneumonia couple months ago, was also treated for URI, sepsis. He has had multiple UTIs since admission in October 2023. He is on antibiotics for chronic osteomyelitis. 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 SEGMENT (WRVU 6.43) performed by Robbin Tong MD at [facility] MAIN OR PRO ARTHRODESIS, POST/POSTEROLAT TQ, SNGLE INTERSPACE; CERVICAL BELOW C2 SEGMNT Midline 10/27/2020 @ARTHRODESIS, POSTERIOR CERVICAL SPINE (WRVU 17.4) performed by Robbin Tong MD at [facility] MAIN OR PRO AUTOGRAFT SPINE SURGERY LOCAL FROM SAME INCISION N/A 10/27/2020 AUTOGRAFT FOR SPINE SURGERY ONLY, SAME INCISION (WRVU *) performed by Robbin Tong MD at [facility] MAIN OR PRO CHANGE OF BLADDER TUBE, SIMPLE N/A 10/25/2023 CYSTOSTOMY TUBE, CHANGE (WRVU 0.9) performed by Alfonso Brian MD at [facility] MAIN OR PRO CYSTOSCOPY, INSERT URETERAL STENT Right 10/25/2023 CYSTO, STENT PLACEMENT (WRVU 2.82) performed by Alfonso Brian MD at [facility] MAIN OR PRO CYSTOSCOPY, REMV CALCULUS, SIMPLE N/A 10/25/2023 CYSTO, REMOVAL OF STENT, FOREIGN BODY OR CALCULUS, SIMPLE (WRVU 2.81) performed by Alfonso Brian MD at [facility] MAIN OR PRO OPEN POST TREAT CERV VERT FX, 1 LVL N/A 10/27/2020 @OPEN TREATMENT &/OR REDUCTION VERTEBRAL FX., CERVICAL (WRVU 20.84) performed by Rosa Tong MD at [facility] MAIN OR PRO PLACE PERCUT GASTROSTOMY TUBE N/A 11/05/2020 ENDOSCOPY W DIRECTED PLACEMENT PERCUTANEOUS GASTROSTOMY TUBE-PEG (WRVU 3.66) performed by Yoel Medellin MD at [facility] MAIN OR PRO POSTERIOR SEGMENTAL INSTRUMENTATION 3-6 VRT SEG N/A 10/27/2020 POST SPINAL INSTRUMENTATION, 3-6 VERTEBRA, NON SEGMENTAL (WRVU 12.56) performed by Robbin Tong MD at [facility] MAIN OR MEDICATIONS: No current facility-administered medications [...] Abnormal Organism Proteus mirabilis Abnormal Resulting Agency [facility] Lab Susceptibility Proteus mirabilis VITEK 2 METHOD [...] ureteroscopy. Recommendation: - ensure SPT is changed [id number], nursing staff to change if due for routine exchange - agree with sensitivity directed antibiotic treatment for Proteus UTI, recommend 2 week course - suppressive antibiotics to follow 2 week active antibiotic course - we will work to arrange outpatient ureteroscopy (at [facility] [place] with Dr. Molina pending case discussion [...] ureteroscopy. Recommendation: - ensure SPT is changed [id number], nursing staff to change if due for routine exchange - agree with sensitivity directed antibiotic treatment for Proteus UTI, recommend 2 week course - suppressive antibiotics to follow 2 week active antibiotic course - we will work to arrange outpatient ureteroscopy (at [facility] versus with Dr. Molina pending case discussion [...] Hartman MD - 03/19/2024 11:[address] [facility] Department of Urologic Surgery Inpatient Consult [...] of his chart, he was admitted at [facility] for pneumonia couple months ago, was also treated for URI, sepsis. He has had multiple UTIs since admission in October 2023. He is on antibiotics for chronic osteomyelitis. 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 SEGMENT (WRVU 6.43) performed by Robbin Tong MD at [facility] MAIN OR PRO ARTHRODESIS, POST/POSTEROLAT TQ, SNGLE INTERSPACE; CERVICAL BELOW C2 SEGMNT Midline 10/27/2020 @ARTHRODESIS, POSTERIOR CERVICAL SPINE (WRVU 17.4) performed by Robbin Tong MD at [facility] MAIN OR PRO AUTOGRAFT SPINE SURGERY LOCAL FROM SAME INCISION N/A 10/27/2020 AUTOGRAFT FOR SPINE SURGERY ONLY, SAME INCISION (WRVU *) performed by Robbin Tong MD at [facility] MAIN OR PRO CHANGE OF BLADDER TUBE, SIMPLE N/A 10/25/2023 CYSTOSTOMY TUBE, CHANGE (WRVU 0.9) performed by Alfonso Brian MD at [facility] MAIN OR PRO CYSTOSCOPY, INSERT URETERAL STENT Right 10/25/2023 CYSTO, STENT PLACEMENT (WRVU 2.82) performed by Alfonso Brian MD at [facility] MAIN OR PRO CYSTOSCOPY, REMV CALCULUS, SIMPLE N/A 10/25/2023 CYSTO, REMOVAL OF STENT, FOREIGN BODY OR CALCULUS, SIMPLE (WRVU 2.81) performed by Alfonso Brian MD at [facility] MAIN OR PRO OPEN POST TREAT CERV VERT FX, 1 LVL N/A 10/27/2020 @OPEN TREATMENT &/OR REDUCTION VERTEBRAL FX., CERVICAL (WRVU 20.84) performed by Rosa Tong MD at [facility] MAIN OR PRO PLACE PERCUT GASTROSTOMY TUBE N/A 11/05/2020 ENDOSCOPY W DIRECTED PLACEMENT PERCUTANEOUS GASTROSTOMY TUBE-PEG (WRVU 3.66) performed by Yoel Medellin MD at [facility] MAIN OR PRO POSTERIOR SEGMENTAL INSTRUMENTATION 3-6 VRT SEG N/A 10/27/2020 POST SPINAL INSTRUMENTATION, 3-6 VERTEBRA, NON SEGMENTAL (WRVU 12.56) performed by Robbin Tong MD at [facility] MAIN OR MEDICATIONS: No current facility-administered medications [...] Abnormal Organism Proteus mirabilis Abnormal Resulting Agency [facility] Lab Susceptibility Proteus mirabilis VITEK 2 METHOD [...] Urologic intervention - ensure SPT is changed [id number], nursing staff to change if due for routine exchange - agree with sensitivity directed antibiotic treatment for Proteus UTI, recommend 2 week course - suppressive antibiotics to follow 2 week active antibiotic course - we will work to arrange outpatient ureteroscopy (at [facility] [place] with Dr. Molina pending case discussion [...] . 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 Deepest at 2:[address] [place] hypergranular tissue to the wound bed. Promogran [...] moist drainage;intact 03/18/24 1329 Base moist;pink 03/18/24 1329 Wound Length (cm) 4 cm 03/18/24 1329 Wound Width (cm) 3.5 cm 03/18/24 1329 Wound Surface Area (cm^2) 14 cm^2 03/18/24 1329 Drainage Characteristics/Odor serosanguineous;yellow 03/18/24 1329 Drainage Amount moderate 03/18/24 1329 Wound Cleaning cleansed with;wound cleanser 03/18/24 1329 Wound Interventions Dressing changed 03/18/24 1329 Dressing dressing removed;dressing applied;foam;hydrofiber 03/18/24 1329 Wound Image 03/18/24 1329 Pressure Injury 03/17/24 [...] Tolerance: good Intake (%): 100% Current bed: [facility] Assessment: 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 No signs clear signs of infection. [place] hypergranular tissue to base. Scarring to periwound. [...] Mepilex border dressing. (AquacelAg 1cm ribbon PS# [id number]) (AquacelAg 2cm ribbon PS# [id number]) Pressure Injury Prevention: Sensory: Inspect feet, ankles [...] chair to 2 hour intervals. Use a [employer] chair cushion beneath patient at all times [...] chat or the wound care team at [phone] or pager [phone] with skin and wound care concerns or [...] COVID test: Lab Results Component Value Date [id number] Not Detected 11/19/2020 Past medical History: No [...] power, lift device Home Address listed as: [address] [place] [id number] Social & Family Supports: All names listed below confirmed with patient as current and correct Extended Emergency Contact Information Primary Emergency Contact: Cayetano Velasquezn Mobile Relation: Child Secondary Emergency Contact: Nicki [...] *No Product type* / Secondary Insurance: [place]ICAID [place] ; Prescription Coverage: Yes Preferred Pharmacy: [id number] - [place], [place] - [address] [facility] [address] [facility] [address] [facility] [place], [place] - [address] [address] [place], [place] [address] [facility] [address] [address] [place] Status: Patient is a : No Primary Care Provider listed: Genevieve Baez MD [phone] Patient/Caregiver Goals of Treatment: return home Potential Needs for Transition of Care: home health care Agency Referrals: I have met with the patient to: discuss discharge planning needs. provide the [facility], Office of Care Management letter from the Saturation Equipment Operator pertaining to rehab referrals. provide a letter describing our affiliations within the [facility] and educate about their right to choose where referrals are sent. provide a list of Home Health Agencies / Durable Medical Equipment vendors which serve their preferred geographic area. provided patient with [facility] Star Quality Rating handout. They have requested referrals to: [facility] [address] [place] [address] Note routed to a Stock Replenisher who will communicate referrals to facilities and [...] care planning. Usha Hutchinson RN, BSN, BILLY Hammer Smith Pager [phone] * Consult Note - Ondina Cruz RN [...] [X] N/A * Consult Note - Irena Ferrell, [facility] - 03/17/2024 2:22 PM EDT TelePharmacy Home Medication List Update for Medication Reconciliation 03/17/24 2:22 PM Bruce Velasquez Jr. 1965 Allergies Allergen Reactions Hydromorphone Other (See Comments) Daughter states makes him irritable and has hallucinations Person Interviewed: [place] [facility] med list Quality of Interview/accuracy of [...] number listed in chart. I called patient's [place] pharmacy who faxed me a list of [...] PM EDT Triage nurse Thi called from [facility] to inform us that this pt is coming from home via private car. Pt has been on antibiotics(Bactrum) for 2 weeks and is now endorsing chills, SOB, Low 02. He was recently hospitalized. P thas hx of suprapubic cath, quadplegic and followed by ID/Wound clinic. Any questions call [place] at [phone]. documented in this encounter Plan of Treatment [...] 6:20 AM EDT) Neutrophil % 53.2 % [facility] Neutrophil Absolute 2.48 1.70 - 6.10 x10(3)/[facility] Lymph % 31.9 % [facility] Lymphocytes Abs 1.5 0.9 - 3.2 x10(3)/[facility]OR[facility] Monocyte % 9.0 % [facility] Monocyte Abs 0.4 0.3 - 0.9 x10(3)/[facility]ORAT[facility] Eos % 5.1 % [facility] Eosinophils Abs 0.2 0.0 - 0.4 x10(3)/[facility]ORATORY Basophil % 0.6 % [facility] Baso Absolute 0.0 0.0 - 0.1 x10(3)/[facility] LABORATORY Immature Gran % 0.20 % [facility] Comment: Immature granulocytes(IG's)percentage and absolute count will include metamyelocytes, myelocytes, and promyelocytes. Blood smears from CBCs yielding IG's will be scanned manually for concordance. If this scan disagrees with the automated IG or if promyelocytes are noted, a manual differential will be performed. Immature Gran Absolute 0.01 0.00 - 0.04 x10(3)/[facility]ORATORY Blood 03/20/2024 6:20 AM EDT 03/20/2024 6:30 AM EDT Narrative Resulting Agency Comment Spec In Lab Edwina Barclay MD HEMATOLOG Y ORDERABLES [facility] [place] [address] * (ABNORMAL) Hemogram (03/20/2024 6:20 AM EDT) [facility] White Blood Cell 4.7 4.0 - 9.5 x10(3)/[facility]ORATORY Red Blood Cell 3.65(L) 4.58 - 5.54 x10(6)/[facility] Hemoglobin 10.5(L) 13.7 - 16.5 g/dL [facility] Hematocrit 32.1(L) 40.5 - 48.5 % [facility] Mean Cell Volume 87.9 82.9 - 93.1 fL [facility] Mean Cell Hemoglobin 28.8 27.5 - 32.1 pg [facility] Mean Cell Hemoglobin Concentration 32.7 32.0 - 35.7 g/dL [facility] Platelet 155 145 - 357 x10(3)/[facility]OR[facility] RDW Standard Deviation 48.8(H) 36.0 - 45.0 [facility] LABORATORY RDW coefficient of variation 15.0(H) 11.4 - 13.8 % [facility] Mean Platelet Volume 10.3 7.6 - 12.9 [facility] LABORATORY NRBC% auto 0.0 % [facility] NRBC Absolute 0.000 0.000 - 0.000 x10(3)/[facility] Blood 03/20/2024 6:20 AM EDT 03/20/2024 6:30 AM EDT Narrative Resulting Agency Comment Spec In Lab Edwina Barclay MD HEMATOLOG Y ORDERABLES [facility] [place] [address] * (ABNORMAL) Basic Metabolic Panel (non-fasting) (03/20/2024 6:20 AM EDT) Glucose 84 65 - 199 mg/dL [facility] Comment:Diabetes: >=200 mg/d L plus symptoms Blood Urea Nitrogen 14 10 - 20 mg/dL [facility] Creatinine 0.52(L) 0.80 - 1.50 mg/dL [facility] Sodium 143 135 - 145 mmol/L [facility] Potassium 3.6 3.5 - 5.0 mmol/L [facility] Comment: Please note: ??Patients with WBC >100,000 may have falsely elevated Potassium levels. ??For accurate Potassium quantification in these patients send serum separator tube (gold top) for subsequent determinations. ??Contact the Clinical Chemistry Laboratory if there are any questions. Chloride 107 98 - 107 mmol/L [facility] Carbon Dioxide 27 22 - 31 mmol/L [facility] Anion Gap 9 5 - 15 mmol/L [facility] Calcium 8.8 8.5 - 10.5 mg/dL [facility] Est Glomerular Filtration Rate 118 >=60 mL/min/1. 73 m?? [facility] Comment: This patient's estimated GFR [...] In Lab Edwina Barclay MD CHEMISTRY ORDERABLES [facility] [place] [address] * Differential, Automated (03/19/2024 3:45 AM EDT) Pathologist [facility] Neutrophil % 55.9 % [facility] Neutrophil Absolute 2.52 1.70 - 6.10 x10(3)/[facility] LABORATORY Lymph % 27.1 % [facility] Lymphocytes Abs 1.2 0.9 - 3.2 x10(3)/[facility] LABORATORY Monocyte % 11.5 % [facility] Monocyte Abs 0.5 0.3 - 0.9 x10(3)/[facility]ORAT[facility] Eos % 4.9 % [facility] Eosinophils Abs 0.2 0.0 - 0.4 x10(3)/[facility]ORATORY Basophil % 0.4 % [facility] Baso Absolute 0.0 0.0 - 0.1 x10(3)/[facility] Immature Gran % 0.20 % [facility] Comment: Immature granulocytes(IG's)percentage and absolute count will include metamyelocytes, myelocytes, and promyelocytes. Blood smears from CBCs yielding IG's will be scanned manually for concordance. If this scan disagrees with the automated IG or if promyelocytes are noted, a manual differential will be performed. Immature Gran Absolute 0.01 0.00 - 0.04 x10(3)/[facility] Blood 03/19/2024 3:45 AM EDT 03/19/2024 3:52 AM EDT Narrative Resulting Agency Comment Spec In Lab Edwina Barclay MD HEMATOLOG Y ORDERABLES [facility] [place] [address] * (ABNORMAL) Hemogram (03/19/2024 3:45 AM EDT) [facility] White Blood Cell 4.5 4.0 - 9.5 x10(3)/ L [facility] Red Blood Cell 3.61(L) 4.58 - 5.54 x10(6)/mc L [facility] Hemoglobin 10.3(L) 13.7 - 16.5 g/dL [facility] Hematocrit 31.8(L) 40.5 - 48.5 % [facility] Mean Cell Volume 88.1 82.9 - 93.1 fL [facility] Mean Cell Hemoglobin 28.5 27.5 - 32.1 pg [facility] Mean Cell Hemoglobin Concentration 32.4 32.0 - 35.7 g/dL [facility] Platelet 133(L) 145 - 357 x10(3)/mc L [facility] RDW Standard Deviation 49.8(H) 36.0 - 45.0 [facility] RDW coefficient of variation 15.4(H) 11.4 - 13.8 % [facility] Mean Platelet Volume 11.0 7.6 - 12.9 [facility]ORY NRBC% auto 0.0 % [facility] NRBC Absolute 0.000 0.000 - 0.000 x10(3)/mc L [facility] Blood 03/19/2024 3:45 AM EDT 03/19/2024 3:52 AM EDT Narrative Resulting Agency Comment Spec In Lab Edwina Barclay MD HEMATOLOG Y ORDERABLES Performing Organization Address City/State/[facility] Co de Phone Number [facility] [place] [address] * (ABNORMAL) Basic Metabolic Panel (non-fasting) (03/19/2024 3:45 AM EDT) Glucose 86 65 - 199 mg/dL [facility] Comment:Diabetes: >=200 mg/d L plus symptoms Blood Urea Nitrogen 14 10 - 20 mg/dL [facility] Creatinine 0.52(L) 0.80 - 1.50 mg/dL [facility] Sodium 144 135 - 145 mmol/L [facility] Potassium 3.5 3.5 - 5.0 mmol/L [facility] Comment: Please note: ??Patients with WBC >100,000 may have falsely elevated Potassium levels. ??For accurate Potassium quantification in these patients send serum separator tube (gold top) for subsequent determinations. ??Contact the Clinical Chemistry Laboratory if there are any questions. Chloride 107 98 - 107 mmol/L [facility] Carbon Dioxide 27 22 - 31 mmol/L [facility] Anion Gap 10 5 - 15 mmol/L [facility] Calcium 9.0 8.5 - 10.5 mg/dL [facility] Est Glomerular Filtration Rate 118 >=60 mL/min/1. 73 m?? [facility] Comment: This patient's estimated GFR [...] In Lab Edwina Barclay MD CHEMISTRY ORDERABLES [facility] [place] [address] * (ABNORMAL) CT Abdomen & Pelvis wo Contrast (03/18/2024 5:39 PM EDT) WORKSTATION ID [id number] RAD Anatomical Region Laterality Modality Abdomen, Pelvis [...] who have questions please contact the health emergency care tech that requested your imaging first. ? Narrative [...] marrow. Resulting Agency Comment Unexpected Finding Evgeny Anu Gamboa DO IMG CT ORDERABLES * Differential, Automated (03/18/2024 6:00 AM EDT) Neutrophil % 59.0 % [facility] Neutrophil Absolute 2.99 1.70 - 6.10 x10(3)/[facility] Lymph % 22.3 % [facility] Lymphocytes Abs 1.1 0.9 - 3.2 x10(3)/[facility] LABORATORY Monocyte % 14.2 % [facility] Monocyte Abs 0.7 0.3 - 0.9 x10(3)/[facility]OR[facility]ORY Eos % 3.7 % [facility] Eosinophils Abs 0.2 0.0 - 0.4 x10(3)/[facility] LABORATORY Basophil % 0.6 % [facility] Baso Absolute 0.0 0.0 - 0.1 x10(3)/[facility] LABORATORY Immature Gran % 0.20 % [facility] Comment: Immature granulocytes(IG's)percentage and absolute count will include metamyelocytes, myelocytes, and promyelocytes. Blood smears from CBCs yielding IG's will be scanned manually for concordance. If this scan disagrees with the automated IG or if promyelocytes are noted, a manual differential will be performed. Immature Gran Absolute 0.01 0.00 - 0.04 x10(3)/[facility] LABORATORY Blood 03/18/2024 6:00 AM EDT 03/18/2024 6:20 AM EDT Narrative Resulting Agency Comment Spec In Lab Edwina Barclay MD HEMATOLOG Y ORDERABLES [facility] [place] [address] * (ABNORMAL) Hemogram (03/18/2024 6:00 AM EDT) White Blood Cell 5.1 4.0 - 9.5 x10(3)/[facility] Red Blood Cell 3.57(L) 4.58 - 5.54 x10(6)/mc L [facility] Hemoglobin 10.0(L) 13.7 - 16.5 g/dL [facility] Hematocrit 31.5(L) 40.5 - 48.5 % [facility] Mean Cell Volume 88.2 82.9 - 93.1 fL [facility] Mean Cell Hemoglobin 28.0 27.5 - 32.1 pg [facility] Mean Cell Hemoglobin Concentration 31.7(L) 32.0 - 35.7 g/dL [facility] Platelet 122(L) 145 - 357 x10(3)/mc L [facility] RDW Standard Deviation 49.8(H) 36.0 - 45.0 fL [facility] RDW coefficient of variation 15.3(H) 11.4 - 13.8 % [facility] Mean Platelet Volume 11.1 7.6 - 12.9 fL [facility] NRBC% auto 0.0 % [facility] NRBC Absolute 0.000 0.000 - 0.000 x10(3)/mc L [facility] Blood 03/18/2024 6:00 AM EDT 03/18/2024 6:20 AM EDT Narrative Resulting Agency Comment Spec In Lab Ediwna Barclay MD HEMATOLOG Y ORDERABLES Performing Organization Address City/[facility]/ZIP Co de Phone Number [facility] [place] [address] * Vancomycin Level, Random (03/18/2024 6:00 AM EDT) Vancomycin, Random 6.5 mg/L [facility] Comment: This level is for determination of the patient's vancomycin lmcn-tupoq-feh-curve (AUC) value. Contact the inpatient pharmacy for interpretation. Blood 03/18/2024 6:00 AM EDT 03/18/2024 6:20 AM EDT Edwina Barclay MD CHEMISTRY ORDERABLES Performing Organization Address [facility] Co de Phone Number [facility] [place] [address] * (ABNORMAL) Basic Metabolic Panel (non-fasting) (03/18/2024 6:00 AM EDT) Glucose 82 65 - 199 mg/dL [facility] Comment:Diabetes: >=200 mg/d L plus symptoms Blood Urea Nitrogen 13 10 - 20 mg/dL [facility] Creatinine 0.59(L) 0.80 - 1.50 mg/dL [facility] Sodium 143 135 - 145 mmol/L [facility] Potassium 3.4(L) 3.5 - 5.0 mmol/L [facility] Comment: Please note: ??Patients with WBC >100,000 may have falsely elevated Potassium levels. ??For accurate Potassium quantification in these patients send serum separator tube (gold top) for subsequent determinations. ??Contact the Clinical Chemistry Laboratory if there are any questions. Chloride 107 98 - 107 mmol/L [facility] Carbon Dioxide 25 22 - 31 mmol/L [facility] Anion Gap 11 5 - 15 mmol/L [facility] Calcium 8.7 8.5 - 10.5 mg/dL [facility] Est Glomerular Filtration Rate 114 >=60 mL/min/1. 73 m?? [facility] Comment: This patient's estimated GFR [...] Barclay MD CHEMISTRY ORDERABLES Performing Organization Address City/State/[facility] Co de Phone Number [facility] [place] [address] * (ABNORMAL) Urine culture (03/16/2024 9:18 PM EDT) Urine Culture 10,000-49,0 00 cfu/ml Proteus mirabilis(A ) [facility] Organism Proteus mirabilis(A ) [facility] Indwelling Catheter Urine 03/16/2024 [...] Servin MD MICROBIOLOGY - GENER AL ORDERABLES [facility] [place] [address] * (ABNORMAL) Urinalysis Microscopic Exam (03/16/2024 9:18 PM EDT) RBC, Urine 1 0 - 3 /HPF [facility] WBC, Urine >100(H) 0 - 3 /HPF [facility] WBC Clumps, Urine Occasiona l(A) None /HPF [facility] Comment: Interpret results with caution, microscopic results are from suboptimal specimen volume Bacteria, Urine Few(A) None /HPF [facility] Squamous Epithelial Cells Raw Data, Urine 2 <=4 /HPF [facility] Indwelling Catheter Urine 03/16/2024 9:18 PM EDT 03/16/2024 9:34 PM EDT Narrative Resulting Agency Comment Spec In Lab Shirley Servin MD URINE ORDERABLES Performing Organization Address City/[facility]/ZIP Co de Phone Number [facility] [place] [address] * (ABNORMAL) Urinalysis with reflex Culture (03/16/2024 9:18 PM EDT) Glucose, Urine Dipstick Negative Negative mg/dL [facility] Protein, Urine Dipstick Negative Negative mg/dL [facility] Bilirubin, Urine Dipstick Negative Negative mg/dL [facility] Comment: Clinical correlation required for positive Urine Bilirubin results as false positive may occur with some drugs and drug related products. If a false positive is suspected a serum total bilirubin should be considered if clinically indicated. Urobilinogen, Urine Dipstick Normal Normal mg/dL [facility] pH, Urn (dipstick) 6.5 5.0 - 8.0 [facility] Blood, Urine Dipstick Small(A) Negative mg/dL [facility] Ketone, Urine Dipstick Negative Negative mg/dL [facility] Nitrite, Urine Dipstick Negative Negative [facility] Leukocytes, Urine Dipstick Large(A) Negative [facility] Appearance, Urine Dipstick Cloudy(A) Clear [facility] Specific [place] Urine Automated 1.006 1.005 - 1.030 [facility] Color, Urine Dipstick Yellow Yellow [facility] Reflex to Culture Yes [facility] Indwelling Catheter Urine 03/16/2024 9:18 PM EDT 03/16/2024 9:34 PM EDT Narrative Resulting Agency Comment Spec In Lab Jorge A Decker DO URINE ORDERABLES Performing Organization Address City/[facility]/ZIP Co de Phone Number [facility] [place] [address] * Sedimentation rate (03/16/2024 8:24 PM EDT) Sedimentation Rate Automated 35 2 - 37 mm/hr [facility] Comment: Effective October 12, 2019 new capillary photometric technology has resulted in a change in reference ranges. It is recommended that each ESR result be reviewed with its own age appropriate reference range. Blood Venous Draw / Unknown 03/16/2024 8:24 PM EDT 03/16/2024 8:32 PM EDT Narrative Resulting Agency Comment Spec In Lab Shirley Servin MD HEMATOLOGY ORDERABLE S [facility] [place] [address] * (ABNORMAL) Differential, Automated (03/16/2024 8:24 PM EDT) Pathologist [facility] Neutrophil % 72.0 % [facility] Neutrophil Absolute 6.31(H) 1.70 - 6.10 x10(3)/mc L [facility] Lymph % 17.4 % [facility] Lymphocytes Abs 1.5 0.9 - 3.2 x10(3)/ L [facility] Monocyte % 9.7 % [facility] Monocyte Abs 0.8 0.3 - 0.9 x10(3)/ L [facility] Eos % 0.2 % [facility] Eosinophils Abs 0.0 0.0 - 0.4 x10(3)/mc L [facility] Basophil % 0.2 % [facility] Baso Absolute 0.0 0.0 - 0.1 x10(3)/mc L [facility] Immature Gran % 0.50 % [facility] Comment: Immature granulocytes(IG's)percentage and absolute count will include metamyelocytes, myelocytes, and promyelocytes. Blood smears from CBCs yielding IG's will be scanned manually for concordance. If this scan disagrees with the automated IG or if promyelocytes are noted, a manual differential will be performed. Immature Gran Absolute 0.04 0.00 - 0.04 x10(3)/ L [facility] Blood 03/16/2024 8:24 PM EDT 03/16/2024 8:32 PM EDT Narrative Resulting Agency Comment Spec In Lab Dedra Ibarra MD HEMATOLOGY ORDERABL ES [facility] [place] [address] * (ABNORMAL) Hemogram (03/16/2024 8:24 PM EDT) White Blood Cell 8.8 4.0 - 9.5 x10(3)/ L [facility] Red Blood Cell 3.56(L) 4.58 - 5.54 x10(6)/[facility] Hemoglobin 10.2(L) 13.7 - 16.5 g/dL [facility] Hematocrit 31.4(L) 40.5 - 48.5 % [facility] Mean Cell Volume 88.2 82.9 - 93.1 fL [facility] Mean Cell Hemoglobin 28.7 27.5 - 32.1 pg [facility] Mean Cell Hemoglobin Concentration 32.5 32.0 - 35.7 g/dL [facility] Platelet 117(L) 145 - 357 x10(3)/[facility] RDW Standard Deviation 51.6(H) 36.0 - 45.0 fL [facility] RDW coefficient of variation 15.9(H) 11.4 - 13.8 % [facility] Mean Platelet Volume 11.4 7.6 - 12.9 fL [facility] NRBC% auto 0.0 % [facility] NRBC Absolute 0.000 0.000 - 0.000 x10(3)/ L [facility] Blood 03/16/2024 8:24 PM EDT 03/16/2024 8:32 PM EDT Narrative Resulting Agency Comment Spec In Lab Dedra Ibarra MD HEMATOLOGY ORDERABL ES [facility] [place] [address] * (ABNORMAL) BLOOD GAS 2 VENOUS (03/16/2024 6:31 PM EDT) pH, Venous 7.40 7.32 - 7.42 [facility] PCO2, Venous 41 41 - 51 mmHg [facility] PO2, Venous 38 25 - 40 mmHg [facility] Bicarbonate, Venous 25.2 mmol/L [facility] Base Excess, Venous 0.5 mmol/L [facility] Hgb Blood Gas 11.1(L) 13.7 - 16.5 g/dL [facility] Oxyhemoglobin, Venous 70.8 % [facility] Carboxyhemoglob in, Venous 1.0 % [facility] Comment: Nonsmokers: 0.5-1.5% COHB Smokers: Variable, but usually less than 10% Toxic: 20-30% COHB Lethal: Greater than 60% COHB Methemoglobin, Venous 0.7 <=1.5 % [facility] Na Whole Blood 138 135 - 145 mmol/L [facility] K Whole Blood 3.8 3.5 - 5.0 mmol/L [facility] Comment: Please note: Patients with WBC >100,000 may have falsely elevated Potassium levels. Contact the Clinical Chemistry Laboratory if there are any questions. ICa Whole Blood 1.18 1.15 - 1.33 mmol/L [facility] Comment: Note: ??Total bilirubin higher than 20 mg/dL may lead to falsely low ionized calcium. CL Whole Blood 104 98 - 107 mmol/L [facility] Gluc Whole Bld 97 65 - 199 mg/dL [facility] Comment:Diabetes: >=200 mg/d L plus symptoms Lactate WB 1.0 0.5 - 2.2 mmol/L [facility] Blood Gas Source Venous [facility] Blood 03/16/2024 6:31 PM EDT 03/16/2024 6:31 PM EDT Dedra Ibarra MD POINT OF CARE TEST ORDERABLES [facility] [place] [address] * Respiratory Panel PCR (03/16/2024 6:26 PM EDT) Respiratory Panel Source [employer] Swab [facility] Respiratory Panel PCR Negative Negative [facility] Comment: Respiratory Panels are performed on the MOG, using multiplexed PCR nucleic acid detection. ??Negative results do not preclude respiratory infection and should not be used as the sole basis for diagnosis, treatment or other management decisions. Adenovirus Not Detected Not Detected [facility] Coronavirus HKU1 Not Detected Not Detected [facility] Coronavirus NL63 Not Detected Not Detected [facility] Coronavirus 229E Not Detected Not Detected [facility] Coronavirus OC43 Not Detected Not Detected [facility] SARS-CoV-2 Not Detected Not Detected [facility] Comment: Testing for SARS-CoV-2 (Severe acute respiratory syndrome coronavirus 2) to aid in the diagnosis of COVID-19 is performed using the [employer] Respiratory Panel 2.1 (True Fit) as authorized by the FDA issued Emergency Use Authorization (EUA). This panel also tests for multiple other viral and bacterial pathogens. This assay is intended for In-vitro Diagnostic (IVD) use with nasopharyngeal swabs in viral transport media. The assay is performed based on the instructions for use and additional guidance provided by the FDA. Testing is performed in laboratories within the [facility], each of which is certified under the [...] fact sheets at the following FDA website: https://www.fda.gov/medical-devices/flktqimdegy-dgkkslc-8689-kgyut-71-uuwphnjip- use-a hxzcnrqhtjyum-ldujswu-gwubzct/dmokf-vnlusnxleie-gezz Human Metapneumovirus Not Detected Not Detected [facility] Human Rhinovirus/Enterov irus Not Detected Not Detected [facility] Influenza A Not Detected Not Detected [facility] Influenza B Not Detected Not Detected [facility] Parainfluenza 1 Not Detected Not Detected [facility] Parainfluenza 2 Not Detected Not Detected [facility] Parainfluenza 3 Not Detected Not Detected [facility] Parainfluenza 4 Not Detected Not Detected [facility] Respiratory Syncytial Virus Not Detected Not Detected [facility] Chlamydophila pneumoniae Not Detected Not Detected [facility] Mycoplasma pneumoniae Not Detected Not Detected [facility] Nasopharyngeal Swab 03/16/20 6:26 PM EDT 03/16/2024 6:54 PM EDT Narrative Resulting Agency Comment Spec In Lab Jorge Azoe Decker DO MICROBIOLOGY - GENER AL ORDERABLES Performing Organization Address [facility] Co de Phone Number [facility] [place] [address] * Blood culture (03/16/2024 6:25 PM EDT) Blood Culture No growth at 5 days. [facility] Blood 03/16/2024 6:25 PM EDT 03/16/2024 6:54 PM EDT Comment:port Narrative Resulting Agency Comment Spec In Lab Jorge Azoe Decker MICROBIOLOGY - BLOOD ORDERABLES Performing Organization Address [facility] de Phone Number [facility] [place] [phone] * XR Chest One View (03/16/2024 5:59 PM EDT) Pathologist [employer] WORKSTATION ID [id number] DH RAD Anatomical Region Laterality Modality Chest [...] who have questions please contact the health emergency care tech that requested your imaging first. ? Narrative [...] patients who have questions please contactthe health emergency care tech that requested your imaging first. Jorge A Decker DO IMG DX ORDERABLES * EKG 12 Lead (03/16/2024 5:49 PM EDT) Ventricular rate 83 BPM MUSE SYSTEM Atrial Rate 83 BPM MUSE SYSTEM P-R Interval 154 ms MUSE SYSTEM QRS Duration 110 ms MUSE SYSTEM Q-T Interval 354 ms MUSE SYSTEM QTC Calculated (Bezet) 415 ms MUSE SYSTEM Calculated P [place] 58 degrees MUSE SYSTEM Calculated R [place] -12 degrees MUSE SYSTEM Calculated T [place] 51 degrees MUSE SYSTEM INTERPRETATION Normal sinus rhythm Incomplete right bundle branch block Borderline ECG When compared with ECG of 06-NOV-2020 13:04, Incomplete right bundle branch block is now Present Confirmed by Salome Nunez ([id number]) on 03/19/2024 9:43:25 AM MUSE SYSTEM 03/16/2024 5:49 PM EDT 03/19/2024 9:43 AM EDT Jorge A Decker DO ECG ORDERABLES Performing Organization Address City/[facility]/ZIP Co de Phone Number MUSE SYSTEM * Lyme Confirmation by WOO (03/16/2024 5:43 PM EDT) Pathologist [facility] Lyme IgG WOO Negative Negative [facility] Lyme IgM WOO Negative Negative [facility] Lyme Conf Interp Serologic response to B. burgdorferi not detected [facility] Comment: Please note that as of 03/10/2023 that this testing is performed by the [facility] at [facility] This change in testing location is associated with a change in testing methodology. Blood 03/16/2024 5:43 PM EDT 03/17/2024 7:33 AM EDT Narrative Resulting Agency Comment Spec In Lab Shirley Servin MD IMMUNOLOGY ORDERABLE S [facility] [place] [address] * (ABNORMAL) CRP, acute inflammation (03/16/2024 5:43 PM EDT) C-Reactive Protein 191.7(H) <=4.9 mg/L [facility] Blood Venous Draw / Unknown 03/16/2024 5:43 PM EDT 03/16/2024 6:38 PM EDT Narrative Resulting Agency Comment Spec In Lab Shirley Servin MD CHEMISTRY ORDERABLES Performing Organization Address [facility] Co de Phone Number [facility] [place] [address] * APTT (03/16/2024 5:43 PM EDT) Partial Thromboplastin Time 30 25 - 37 sec [facility] Comment: The PTT is NOT appropriate for heparin monitoring. Use the Anti-Xa level for heparin monitoring (HEP UFH) or LMWH monitoring (HEP LMW). A PTT less than 37 seconds generally indicates adequate hemostasis. Blood 03/16/2024 5:43 PM EDT 03/16/2024 6:35 PM EDT Narrative Resulting Agency Comment Spec In Lab Jorge A Decker DO HEMATOLOGY ORDERABLE S Performing Organization Address [facility] Co de Phone Number [facility] [place] [address] * (ABNORMAL) Prothrombin Time (03/16/2024 5:43 PM EDT) Prothrombin Time 13.6(H) 9.4 - 12.5 sec [facility] International Normalization Ratio 1.2 [facility] Comment: An INR <2.0 indicates [...] Jorge A Decker DO HEMATOLOGY ORDERABLE S [facility] [place] [address] * (ABNORMAL) Lyme IgG & IgM Antibody (03/16/2024 5:43 PM EDT) Pathologist [facility] Lyme Antibody Presumptive Pos(A) Negative [facility] Lyme Ab Comment Possible Lyme infection. Confirmation to follow. [facility] Comment: Please note that as of 03/10/2023 that this testing is performed by the [facility] Laboratory at [facility] This change in testing location is associated with a change in testing methodology. Blood 03/16/2024 5:43 PM EDT 03/17/2024 7:33 AM EDT Narrative Resulting Agency Comment Spec In Lab Jorge A Decker DO IMMUNOLOGY ORDERABLE S Performing Organization Address City/[facility]/ZIP Co de Phone Number [facility] [place] [address] * Acute Tick Borne Infection Panel (03/16/2024 5:43 PM EDT) [facility] Anaplasma phagocytophilum PCR Not Detected Not Detected [facility] Comment: INTERPRETATION: A positive result [...] its performance characteristics determined by the Clinical [employer] (CG[employer]) Laboratory at [facility]. It has not been cleared or approved by the FDA. The laboratory is regulated under CLIA as qualified to perform high-complexity testing. This test is used for clinical purposes. It should not be regarded as investigational or for research. Ehrlichia chaffeensis PCR Not Detected Not Detected [facility] Comment: INTERPRETATION: A positive result [...] and its performance characteristics determined by the [employer] [facility] [employer] [facility] Laboratory at [facility]. It has not been cleared or approved by the FDA. The laboratory is regulated under CLIA as qualified to perform high-complexity testing. This test is used for clinical purposes. It should not be regarded as investigational or for research. Babesia microti PCR Not Detected Not Detected [facility] Comment: INTERPRETATION: A positive result [...] [employer] [facility] [employer] (CGAT) Laboratory at [facility]. It has not been cleared or approved by the FDA. The laboratory is regulated under CLIA as qualified to perform high-complexity testing. This test is used for clinical purposes. It should not be regarded as investigational or for research. Borrelia miyamotoi PCR Not Detected Not Detected [facility] Comment: INTERPRETATION: A positive result [...] and its performance characteristics determined by the [employer] (CGAT) Laboratory at [facility]. It has not been cleared or approved by the FDA. The laboratory is regulated under CLIA as qualified to perform high-complexity testing. This test is used for clinical purposes. It should not be regarded as investigational or for research. Blood 03/16/2024 5:43 PM EDT 03/17/2024 8:07 AM EDT Narrative Resulting Agency Comment Spec In Lab Jorge A Decker DO MOLECULAR ORDERABLES [facility] [place] [address] * Magnesium (03/16/2024 5:43 PM EDT) Magnesium 0.78 0.69 - 1.07 mmol/L [facility] Blood 03/16/2024 5:43 PM EDT 03/16/2024 6:35 PM EDT Narrative Resulting Agency Comment Spec In Lab Jorge A Decker DO CHEMISTRY ORDERABLES Performing Organization Address City/[facility]/ZIP Co de Phone Number [facility] [place] [address] * Blood culture (03/16/2024 5:43 PM EDT) Blood Culture No growth at 5 days. [facility] Blood 03/16/2024 5:43 PM EDT 03/16/2024 6:53 PM EDT Comment:L wrist Narrative Resulting Agency Comment Spec In Lab Jorge A Decker DO MICROBIOLOGY - BLOOD ORDERABLES Performing Organization Address [facility] Co de Phone Number [facility] [place] [address] * (ABNORMAL) Basic Metabolic Panel (non-fasting) (03/16/2024 5:43 PM EDT) Pathologist [facility] Glucose 107 65 - 199 mg/dL [facility] Comment:Diabetes: >=200 mg/d L plus symptoms Blood Urea Nitrogen 22(H) 10 - 20 mg/dL [facility] Creatinine 0.64(L) 0.80 - 1.50 mg/dL [facility] Sodium 138 135 - 145 mmol/L [facility] Potassium 4.4 3.5 - 5.0 mmol/L [facility] Comment: Please note: ??Patients with WBC >100,000 may have falsely elevated Potassium levels. ??For accurate Potassium quantification in these patients send serum separator tube (gold top) for subsequent determinations. ??Contact the Clinical Chemistry Laboratory if there are any questions. Chloride 103 98 - 107 mmol/L [facility] Carbon Dioxide 25 22 - 31 mmol/L [facility] Anion Gap 10 5 - 15 mmol/L [facility] Calcium 9.5 8.5 - 10.5 mg/dL [facility] Est Glomerular Filtration Rate 111 >=60 mL/min/1. 73 m?? [facility] Comment: This patient's estimated GFR [...] Lab Jorge A Decker DO CHEMISTRY ORDERABLES [facility] [place] [address] documented in this encounter Visit Diagnoses Diagnosis [...] Oral, 2 TIMES DAILY, First dose on [facility] 03/19/24 at 1445, Until Discontinued, Routine, Indication [...] HOURS, First dose (after last modification) on Thu03/17/24 at 1000, Until Discontinued, Administer over 4 [...] DAILY, First dose on Kathy 03/17/24 at 0900, Until Discontinued, Routine Given 03/21/2024 [...] Patient/family refused)1000 (Not Given - Provider: Florentin Dhaliwal RN - Reason: Patient/family refused) baclofen (Lioresal) tablet 20 mg 20 mg, Oral, 3 TIMES DAILY, First dose on Kathy 03/17/24 at 1500, Until Discontinued, Routine 0923 (Given - Provider: Cara Anthony RN)1516 (Given - Provider: Cara Anthony RN)2040 (Given - Provider: Zonia Tao RN) 0842 (Given - Provider: Luz Chang RN)1601 (Given - Provider: Luz Chang RN)2041 (Given - Provider: Cara Anthony RN) 0828 [...] Provider: Cara Anthony RN)1517 (Given - Provider: Caar Anthony RN)204 (Given - Provider: Zonia Tao [...] Discontinued, Routine 09 (Given - Provider: Cara Anthony, SWETHA)1516 (Given - Provider: Cara Anthony RN)204 (Given [...] Discontinued, Hold for loose stool. , Routine 09 (Given - Provider: Cara Anthony, SWETHA)2040 (Given - Provider: Zonia Tao, RN) 08 (Given - Provider: Luz Chang, RN)2099 (Not Given - Provider: Cara Anthony RN - Reason: Patient/family refused) 08 (Given - Provider: Florentin Dhaliwal, SWETHA) sodium chloride 0.9 % (flush) (BD PosiFlush Normal Saline 0.9) flush 5 mL 5 mL, Intravenous, 2 TIMES DAILY, First dose on Kathy 03/17/24 at 0900, Until Discontinued, Routine 927 (Given - Provider: Cara Anthony, SWETHA)2041 (Given - Provider: Zonia Tao RN) 08 (Given - Provider: Luz Chang, SWETHA)2099 (Given - Provider: Cara Anthony, SWETHA) 08 (Given - Provider: Florentin Dhaliwal, SWETHA) tamsulosin (Flomax) capsule 0.4 mg 0.4 mg, [...] 0700, Until Thu03/21/24 at 1930, Anxiety, Routine 231 (Given - Provider: Zonia Tao, RN) 2227 (Given - Provider: Cara Anthony, SWETHA) melatonin tablet 6 mg 6 mg, Oral, NIGHTLY PRN, Starting on Kathy 03/17/24 at 0700, Until Thu03/21/24 at 1930, Sleep, Sleep, Use first line, Routine 2313 (Given - Provider: Zonia Tao RN) 2227 (Given - Provider: Cara Anthony, SWETHA) ondansetron (pf) (Zofran) (2 mg/mL) injection [...] 1930, Agitation, Routine 2227 (Given - Provider: CaraJoanne Anthony RN) sodium chloride 0.9 % (flush) (BD [...] documented as of this encounter Care Teams Mall Manager Relationship Specialty Start Date End Date Genevieve Baez MD [address] [place] [address] PCP - General Family Medicine 07/22/23 documented as of this encounter
--- OUTSIDE RECORDS SUMMARY | 2024-11-04 00:22 | XMS_ITS | Encounter Summary ---
Author Organization [facility] [place] [address] Care Team Providers Care Flight/Transport Nurse Name Role Phone Genevieve Baez MD Primary Care Provider [phone] Encounter Details Date Type Department Care Team (Latest Contact Info) Description 03/16/2024 Travel Social History Tobacco Use Types Packs/Day Years Used Date Smoking Tobacco: Never Smokeless Tobacco: Never Alcohol Use Standard Drinks/Week Comments Never 0 (1 standard drink = 0.6 oz pur e alcohol) [facility] Utilities Answer Date Recorded In the past 12 months has [employer], gas, oil, or water [employer] threatened to shut off services in your [...] slept in a fdc (including now)? No 10/27/2023 DH IPV Inpatient [...] documented as of this encounter Care Teams Flight/Transport Nurse Relationship Specialty Start Date End Date Genevieve Baez MD [address] [place] [address] PCP - General Family Medicine 07/22/23 documented as of this encounter
--- OUTSIDE RECORDS SUMMARY | 2024-11-04 00:22 | XMS_ITS | Encounter Summary ---
Author Organization [facility] [place] [address] Care Team Providers Care Trading Manager Name Role Phone Genevieve Baez MD Primary Care Provider [phone] Reason for Referral * Consultation (Urgent) - Closed Specialty Diagnoses / Procedures Referred By Contac t Referred To Contact Wound Care Diagnoses Unspecified open wound of abdominal wall, right upper quadrant without penetration into peritoneal cavity, subsequent encounter Genevieve Baez MD [address] [place] [address] [facility] [place] [address] Referral ID Status Reason Start Date Expiration Date V isits Requested Visits Authorized [id number] Closed Consult, Test & Treat PCP Updated and/or Approved 03/07/2024 03/07/2025 6 6 Encounter Details Date Type Department Care Team (Latest Contact Info) Description 03/07/2024 Transcribe Orders eDH Incoming Referrals [phone] eGnevieve Baez MD [address] [place] [address] Unspecified open wound of abdominal wall, right upper quadrant without penetration into peritoneal cavity, subsequent encounter Social History Tobacco Use Types Packs/Day Years Used Date Smoking Tobacco: Never Smokeless Tobacco: Never Alcohol Use Standard Drinks/Week Comments Never 0 (1 standard drink = 0.6 oz pur e alcohol) [facility] Utilities Answer Date Recorded In the [...] place to sleep or slept in a group home (including now)? No 10/27/2023 DH IPV [...] encounter documented in this encounter Care Teams Trading Manager Relationship Specialty Start Date End Date Genevieve Baez MD [address] [place] [address] PCP - General Family Medicine 07/22/23 documented as of this encounter
--- OUTSIDE RECORDS SUMMARY | 2024-11-04 00:22 | XMS_ITS | Clinical Summary ---
Author Organization [facility] [address] Care Team Providers Care Taxicab Dispatcher Name Role Phone Genevieve Baez MD Primary Care Provider [phone] Allergies Active Allergy Reactions Criticality Noted Date [...] Encounters Date Type Department Care Team Description 10/31/2024 Refill [place] [address] Jameel Joyce MD 10/27/2024 Ref[place] [address] Jameel Joyce MD 09/19/2024 [place] [phone] Genevieve Baez MD Personal history of urinary (tract) infections from Last 3 Months Social History Tobacco Use Types Packs/Day Years Used Date Smoking Tobacco: Never Smokeless Tobacco: Never Tobacco Cessation:Counseling Given: Not Answered Alcohol Use Standard Drinks/Week Comments Never 0 (1 standard drink = 0.6 oz pur e alcohol) [facility] Utilities Answer Date Recorded In the [...] in a nursing home (including now)? No 03/18/2024 DH IPV [...] B vaccine (0-59 yr s) (1) 1986 Tetanus/Diphtheria/Pertussis Vaccines (1 - Tdap) 1986 Zoster vaccine (1 of 2) 2017 Covid-19 Vaccine ( - 2023-2 5 season) 2024 Influenza (Flu) vaccine (1 o f 1 - Influenza standard series) 07/03/2024 Diabetes Screening (HgbA1C o r Glucose) Discontinued 03/20/2024, 03/19/2024, 03/18/2024, Additional history exists Medical Devices Implanted Type Area Project Controls Scheduler Device Identifier Shelf Expiration Date Model / Serial / Lot Kit Graft Bone Sponge 8cc Bmp Syringe Lrg Granules Infuse ([id number]) - [id number] Implanted:Qt y: 1 on 10/27/2020 by Robbin Tong MD at [facility] IMPLANTS Spine Cervical [employer] 07/03/2021 [id number] / / [id number] Screw Spinal 3.5x14mm Posterior Cervical Mltaxl Sld Ti ([id number]) (Autoreq) - [id number] Implanted:Qt y: 3 on 10/27/2020 by Robbin Tong MD at [facility] IMPLANTS Spine Cervical [employer] [id number] / / Graft Bone Filler 5ml Dbm Syringe Putty Progenix Plus ([id number]) (Autoreq) - [id number] Implanted:Qt y: 1 on 10/27/2020 by Robbin Tong MD at [facility] IMPLANTS Spine Cervical [employer] [id number] 09/28/2021 [id number] / [id number] / [id number] Graft Bone Filler [id number] Chips Canc Preservon Readigraft ([id number]) (Autoreq) - [id number] Implanted:Qt y: 1 on 10/27/2020 by Robbin Tong MD at [facility] IMPLANTS Spine Cervical [facility] 07/05/2024 [id number] / / [id number] Screw Spinal 3.5x16mm Posterior Cervical Mltaxl Sld Ti ([id number]) (Autoreq) - [id number] Implanted:Qt y: 1 on 10/27/2020 by Robbin Tong MD at [facility] IMPLANTS Spine Cervical [employer] [id number] / / Jerrell Spinal 3.5-5.5k015r m [place] Cervical Tapered Ti ([id number]) (Autoreq) - [id number] Implanted:Qt y: 3 on 10/27/2020 by Robbin Tong MD at [facility] IMPLANTS Spine Cervical [employer] [id number] / / Screw Spinal 5.5x35mm Pedicle Mltaxl Alfred Cocr ([id number]) (Autoreq) - [id number] Implanted:Qt y: 1 on 10/27/2020 by Robbin Tong MD at [facility] IMPLANTS Spine Cervical [employer] [id number] / / Screw Spinal Set Pedicle 5.5/6.0mm Sld Ti ([id number]) (Autoreq) - [id number] Implanted:Qt y: 4 on 10/27/2020 by Robbin Tong MD at [facility] IMPLANTS Spine Cervical [employer] [id number] / / Screw Spinal Set Posterior Cervical Sld Standard Ti ([id number]) (Autoreq) - [id number] Implanted:Qt y: 4 on 10/27/2020 by Robbin Tong MD at [facility] IMPLANTS Spine Cervical [employer] [id number] / / Screw Spinal 5.5x25mm Pedicle Mltaxl Alfred Cocr ([id number]) (Autoreq) - [id number] Implanted:Qt y: 1 on 10/27/2020 by Robbin Tong MD at [facility] IMPLANTS Spine Cervical [employer] [id number] / / Screw Spinal 5.5x30mm Pedicle Mltaxl Alfred Cocr ([id number]) (Autoreq) - [id number] Implanted:Qt y: 2 on 10/27/2020 by Robbin Tong MD at [facility] IMPLANTS Spine Cervical [employer] [id number] / / Stent Ureteral [id number] Set Dbl Pgtl Tpr Tip Ptfe [place] ([id number]) - [id number] Implanted:Qt y: 1 on 10/25/2023 by Alfonso Brian MD at [facility] IMPLANTS Right: Ureter AbilTo - [employer] [id number] 05/19/2026 [id number] / / [id number] Procedures Procedure Name Priority Date/Time Associated Diagnosis Comments URINE CULTURE Routine 09/19/2024 1:00 PM EST Personal history of urinary (tract) infections BASIC METABOLIC PANEL Routine 03/20/2024 6:20 AM EDT from Last 3 Months or Most Recently Relevant to Health Maintenance Results * (ABNORMAL) Urine culture (09/19/2024 1:00 PM EST) Urine Culture Greater than 100,000 cfu/ml Pseudomonas aeruginosa(A) VITEK 2 METHOD 09/23/2024 7:24 AM [facility] Urine Culture 10,000-49,000 cfu/ml Staphylococcus aureus(A) VITEK 2 METHOD 09/23/2024 7:24 AM [facility] Urine URINE SPECIMEN OBTAINED BY CLEAN CATCH PROCEDURE / Unknown Non Blood Collection / Unknown 09/19/2024 1:00 PM EST 09/19/2024 10:37 PM EST Narrative Organism Antibiotic Method Susceptibility Pseudomonas aeruginosa Amikacin VITEK 2 METHOD <=1.0 ug/ml: Susceptible Pseudomonas aeruginosa Cefepime VITEK 2 METHOD 0.5 ug/ml: Susceptible Pseudomonas aeruginosa Ceftazidime VITEK 2 METHOD 4.0 ug/ml: Susceptible Pseudomonas aeruginosa Ciprofloxacin VITEK 2 METHOD <=0.06 ug/ml: Susceptible Pseudomonas aeruginosa Levofloxacin VITEK 2 METHOD <=0.12 ug/ml: Susceptible Pseudomonas aeruginosa Meropenem VITEK 2 METHOD <=0.25 ug/ml: Susceptible Pseudomonas aeruginosa Piperacillin/Tazobactam VITEK 2 METHOD <=4.0 ug/ml: Susceptible Pseudomonas aeruginosa Tobramycin VITEK 2 METHOD <=1.0 ug/ml: Susceptible Staphylococcus aureus Ciprofloxacin VITEK 2 METHOD <=0.5 ug/ml: Susceptible Staphylococcus aureus Gentamicin VITEK 2 METHOD <=0.5 ug/ml: Susceptible Comment:Gentamicin i s not appropriate for monotherapy for gram-positive infections. Staphylococcus aureus Nitrofurantoin VITEK 2 METHOD <=16.0 ug/ml: Susceptible Staphylococcus aureus Oxacillin VITEK 2 METHOD 0.5 ug/ml: Susceptible Comment:Oxacillin (m ethicillin) susceptibility is a surrogate for the oral and parenteral cephalosporins, beta-lactam combination agents (amoxicillin-clavulanate, ampicillin-sulbactam and piperacillin-tazobactam) and carbapenem agents. It is NOT a surrogate for penicillin, ampicillin or piperacillin susceptibility. Staphylococcus aureus Trimethoprim/Sulfa VITEK 2 METHO D <=10.0 ug/ml: Susceptible Staphylococcus aureus Tetracycline VITEK 2 METHOD <=1.0 ug/ml: Susceptible Comment:Based on tet racycline susceptibility, this organism is considered susceptible to doxycycline. Staphylococcus aureus Vancomycin VITEK 2 METHOD 1.0 ug/ml: Susceptible Genevieve Baez MD MICROBIOLOGY - GENER AL ORDERABLES [facility] [place] [address] * (ABNORMAL) Basic Metabolic Panel (non-fasting) (03/20/2024 6:20 AM EDT) Glucose 84 65 - 199 mg/dL [facility] Comment:Diabetes: >=200 mg/d L plus symptoms Blood Urea Nitrogen 14 10 - 20 mg/dL [facility] Creatinine 0.52(L) 0.80 - 1.50 mg/dL [facility] Sodium 143 135 - 145 mmol/L [facility] Potassium 3.6 3.5 - 5.0 mmol/L [facility] Comment: Please note: ??Patients with WBC >100,000 may have falsely elevated Potassium levels. ??For accurate Potassium quantification in these patients send serum separator tube (gold top) for subsequent determinations. ??Contact the Clinical Chemistry Laboratory if there are any questions. Chloride 107 98 - 107 mmol/L [facility] Carbon Dioxide 27 22 - 31 mmol/L [facility] Anion Gap 9 5 - 15 mmol/L [facility] Calcium 8.8 8.5 - 10.5 mg/dL [facility] Est Glomerular Filtration Rate 118 >=60 mL/min/1. 73 m?? [facility] Comment: This patient's estimated GFR [...] In Lab Edwina Barclay MD CHEMISTRY ORDERABLES [facility] [place] [address] from Last 3 Months or Most Recently Relevant to Health Maintenance Advance Directives Documents on File Type Date Recorded Patient Media Services Specialist Expl anation DNR/Out of hospital 04/26/2024 3:43 PM [place] DNR Advance Directives and Livin g Will 11/01/2020 2:29 PM 11/01/2020 * Do [...] by: Patient Content of discussion: Please see lucita llanos note on 10/28 with content of discussion Independent of Code Status d ecision, are there any PRE Arrest limitations (Intubation, Pressors, Cardioversion / Pacing, etc)? Yes PRE Arrest Intubation Permitted? No Additional PRE Arrest treatm ents limitations: Do not intubate, even if for a short duration of time Healthcare Agents on File Name Relationship Healthcare Agent Jamaalnj uma Communication Luz Ron Child Health Care Agent Care Teams Taxicab Dispatcher Relationship Specialty Start Date End Date Genevieve Baez MD [address] [place] [address] PCP - General Family Medicine 07/22/23
--- OUTSIDE RECORDS SUMMARY | 2024-11-04 00:22 | XMS_ITS | Encounter Summary ---
Author Organization [facility] [place] [address] Care Team Providers Care Electrician Bus Name Role Phone Genevieve Baez MD Primary Care Provider Encounter Details Date Type Department Care Team (Late st Contact Info) Description 09/19/2024 [place] [phone] Genevieve Baez MD [address] [place], [place] [id number] Personal history of urinary (tract) infections Social History Tobacco Use Types Packs/Day Years Used Date Smoking Tobacco: Never Smokeless Tobacco: Never Alcohol Use Standard Drinks/Week Comments Never 0 (1 standard drink = 0.6 oz pur e alcohol) [facility] Utilities Answer Date Recorded In the past 12 months has [employer] electric, gas, oil, or water company threatened [...] EST Personal history of urinary (tract) infections documented in this encounter Results * (ABNORMAL) Urine culture (09/19/2024 1:00 PM EST) Urine Culture Greater than 100,000 cfu/ml Pseudomonas aeruginosa(A) VITEK 2 METHOD 09/23/2024 7:[address] [facility] Urine Culture 10,000-49,000 cfu/ml Staphylococcus aureus(A) VITEK 2 METHOD 09/23/2024 7:24 AM [facility] Urine URINE SPECIMEN OBTAINED BY [...] ug/ml: Susceptible Genevieve Baez MD MICROBIOLOGY - [facility] [place] [address] documented in this encounter Visit Diagnoses Diagnosis Personal history of urinary (tract) infections documented in this encounter Care Teams Electrician Bus Relationship Specialty Start Date End Date Genevieve Baez MD [address] [place] [id number] PCP - General Family Medicine 07/22/23 documented as of this encounter
--- OUTSIDE RECORDS SUMMARY | 2024-11-04 00:22 | XMS_ITS | Encounter Summary ---
Author Organization [facility] [place] [address] Care Team Providers Care Field Superintendent Name Role Phone Genevieve Baez MD Primary Care Provider [phone] Encounter Details Date Type Department Care Team (Late st Contact Info) Description 06/22/2024 Interpretation Only [address] [address] Thom Albrecht MD [address] [place] [id number] Social History Tobacco Use Types Packs/Day Years Used Date Smoking Tobacco: Never Smokeless Tobacco: Never Alcohol Use Standard Drinks/Week Comments Never 0 (1 standard drink = 0.6 oz pur e alcohol) [facility] Utilities Answer Date Recorded In the past 12 months has [employer] electric, gas, oil, or water company threatened [...] place to sleep or slept in a skilled nursing (including now)? No 03/18/2024 IPV Inpatient Questions [...] PM EDT) PT CLASS I RAD ADMITDTTM [id number] RAD PT RAD MD INFO [id number]^Mcdoug all^Thom^Terry RAD EXAM DESC XRSHDL^XR Shoulder Complete 2+ Views Left^[facility] WORKSTATION ID [id number] RAD Anatomical Region Laterality Modality Shoulder Left [...] who have questions please contact the health health care recruiter that requested your imaging first. ? Narrative [...] patients who have questions please contactthe health health care recruiter that requested your imaging first. Thom Albrecht MD IMG DX ORDERABLES documented in this encounter Visit Diagnoses Not on filedocumented in this encounter Care Teams Field Superintendent Relationship Specialty Start Date End Date Genevieve Baez MD [address] [place] [address] PCP - General Family Medicine 07/22/23 documented as of this encounter
--- OUTSIDE RECORDS SUMMARY | 2024-11-04 00:22 | XMS_ITS | Encounter Summary ---
[place] [address] Care Team Providers Care Squirrel Worker Name Role Phone Genevieve Baez MD Primary Care Provider [phone] Reason for Referral * Consultation (Urgent) - Closed Specialty Diagnoses / Procedures Referred By Contac t Referred To Contact Infectious Diseases Diagnoses Osteomyelitis, unspecified site, unspecified type Genevieve Baez MD [address] [place] [address] [facility] Infectious Dis [address] [place] [phone] Referral ID Status Reason Start Date Expiration Date V isits Requested Visits Authorized [id number] Closed Consult, Test & Treat PCP Updated and/or Approved 02/29/2024 08/30/2024 6 6 Encounter Details Date Type Department Care Team (Latest Contact Info) Description 06/01/2024 Transcribe Orders eDH Incoming Referrals [phone] Genevieve Baez MD [address] [place] [address] Osteomyelitis, unspecified site, unspecified type Social History Tobacco Use Types Packs/Day Years Used Date Smoking Tobacco: Never Smokeless Tobacco: Never Alcohol Use Standard Drinks/Week Comments Never 0 (1 standard drink = 0.6 oz pur e alcohol) [facility] Utilities Answer Date Recorded In the [...] slept in a custodial (including now)? No 03/18/2024 IPV Inpatient Questions [...] type documented in this encounter Care Teams Squirrel Worker Relationship Specialty Start Date End Date Genevieve Baez MD [address] [place] [address] PCP - General Family Medicine 07/22/23 documented as of this encounter
--- OUTSIDE RECORDS SUMMARY | 2024-11-04 00:22 | XMS_ITS | Encounter Summary ---
Author Organization [facility] [place] [address] Care Team Providers Care Customer Service And Sales Consultant Name Role Phone Genevieve Baez MD Primary Care Provider [phone] Reason for Visit * Reason Comments Medication Refill Encounter Details Date Type Department Care Team (Late st Contact Info) Description 10/31/2024 [place] [address] Jameel Joyce MD [facility] [place] [address] Social History Tobacco Use Types Packs/Day Years Used Date Smoking Tobacco: Never Smokeless Tobacco: Never Alcohol Use Standard Drinks/Week Comments Never 0 (1 standard drink = 0.6 oz pur e alcohol) [facility] Utilities Answer Date Recorded In the [...] slept in a longterm (including now)? No 03/18/2024 DH IPV Inpatient [...] on filedocumented in this encounter Care Teams Customer Service And Sales Consultant Relationship Specialty Start Date End Date Genevieve Baez MD [address] [place] [address] PCP - General Family Medicine 07/22/23 documented as of this encounter
--- OUTSIDE RECORDS SUMMARY | 2024-11-04 00:22 | XMS_ITS | Encounter Summary ---
Author Organization [facility] [place] [address] Care Team Providers Care Tile Edger Name Role Phone Genevieve Baez MD Primary Care Provider [phone] Encounter Details Date Type Department Care Team (Late st Contact Info) Description 03/28/2024 Interpretation Only [address] [address] Iain Reyes MD [address] [place], [place] [id number] Social History Tobacco Use Types Packs/Day Years Used Date Smoking Tobacco: Never Smokeless Tobacco: Never Alcohol Use Standard Drinks/Week Comments Never 0 (1 standard drink = 0.6 oz pur e alcohol) [facility] Utilities Answer Date Recorded In the [...] PM EDT) PT CLASS E RAD ADMITDTTM [id number] RAD PT RAD MD INFO [id number]^Findle y^Christopher^Carolyn d RAD EXAM DESC XCXR1^XR Chest 1 View^[facility] WORKSTATION ID [id number] [facility] Anatomical Region Laterality Modality Chest N/A Radiographic Gricel ging 03/28/2024 2:31 PM EDT Impressions 03/28/2024 2:36 PM EDT Clear lungs. Thank you for letting us participate in the care of this patient. ??If you are a health care provider and have any questions regarding this report, please contact the number below. ??For patients who have questions please contact the health housekeeper child care that requested your imaging first. ? Narrative 03/28/2024 2:36 PM EDT EXAMINATION: XR Chest 1 View CLINICAL HISTORY: chills FINDINGS: Single AP view of the chest was obtained and compared to prior examination of 03/16/2024. The lungs are clear. There is no evidence of pleural effusions or pneumothorax. Cardiomediastinal silhouette is unremarkable. Left-sided Kacpwg-[id number], unchanged. Procedure Note Howard Tamez MD - 03/28/2024 EXAMINATION: XR Chest 1 View CLINICAL HISTORY: chills FINDINGS: Single AP view of the chest was obtained and compared to prior examination of 03/16/2024. The lungs are clear. There is no evidence ofpleural effusions or pneumothorax. Cardiomediastinal silhouette is unremarkable. Left-sided Bpnvwt-[id number], unchanged. IMPRESSION Clear lungs. Thank you for letting us participate in the care of this patient. If youare a health care provider and have any questions regarding this report,please contact the number below. For patients who have questions please contactthe health housekeeper child care that requested your imaging first. Iain Reyes MD IMG DX ORDERABL ES documented in this encounter Visit Diagnoses Not on filedocumented in this encounter Care Teams Tile Edger Relationship Specialty Start Date End Date Genevieve Baez MD [address] [place] [address] PCP - General Family Medicine 07/22/23 documented as of this encounter
--- OUTSIDE RECORDS SUMMARY | 2024-11-04 00:22 | XMS_ITS | Encounter Summary ---
Author Organization [facility] Address [facility] [place] [address] Care Team Providers Care Track Vehicle Repairer Name Role Phone Genevieve Baez MD Primary Care Provider [phone] Encounter Details Date Type Department Care Team (Late st Contact Info) Description 03/25/2024 [place] [id number] Brenda Hartman MD [facility] [place] [address] Social History Tobacco Use Types Packs/Day Years Used Date Smoking Tobacco: Never Smokeless Tobacco: Never Alcohol Use Standard Drinks/Week Comments Never 0 (1 standard drink = 0.6 oz pur e alcohol) [facility] Utilities Answer Date Recorded In the past 12 months has [email or web address] electric, gas, oil, or water company threatened [...] a long term (including now)? No 03/18/2024 DH IPV Inpatient [...] Spoke with Dr. Molina (pt's Urologist in [facility]). Discussed patients recent presentation, possible retained right [...] on filedocumented in this encounter Care Teams Track Vehicle Repairer Relationship Specialty Start Date End Date Genevieve Baez MD [address] [place] [address] PCP - General Family Medicine 07/22/23 documented as of this encounter
--- OUTSIDE RECORDS SUMMARY | 2024-11-04 00:22 | XMS_ITS | Encounter Summary ---
Author Organization [facility] [address] Care Team Providers Care Boilermaker Name Role Phone Genevieve Baez MD Primary Care Provider [phone] Encounter Details Date Type Department Care Team (Late st Contact Info) Description 07/05/2024 Interpretation Only [facility] [address] [place] [address] Twin Chaves MD [address] [place] [address] Social History Tobacco Use Types Packs/Day Years Used Date Smoking Tobacco: Never Smokeless Tobacco: Never Alcohol Use Standard Drinks/Week Comments Never 0 (1 standard drink = 0.6 oz pur e alcohol) [facility] Utilities Answer Date Recorded In [...] slept in a mcc (including now)? No 03/18/2024 IPV Inpatient Questions [...] PM EDT) PT CLASS E RAD ADMITDTTM [id number] RAD PT RAD INFO [id number]^Essie luciano^Twin RAD EXAM DESC XRFTMTVR^XR Foot Complete 3+ Views Right^RIS [facility] WORKSTATION ID [id number] RAD Anatomical Region Laterality Modality Foot Right [...] who have questions please contact the health nursing care attendant that requested your imaging first. ? Electronically signed by: Dann Estes MD, [facility] ([phone]), at 07/05/2024 2:48 PM Narrative 07/05/2024 2:48 PM EDT EXAMINATION: XR [...] patients who have questions please contactthe health nursing care attendant that requested your imaging first. Twin Chaves MD IMG DX ORDERABLES documented in this encounter Visit Diagnoses Not on filedocumented in this encounter Care Teams Boilermaker Relationship Specialty Start Date End Date Genevieve Baez MD [address] [place] [address] PCP - General Family Medicine 07/22/23 documented as of this encounter
--- OUTSIDE RECORDS SUMMARY | 2024-11-04 00:22 | XMS_ITS | Encounter Summary ---
Author Organization [facility] [place] [address] Care Team Providers Care Manufacturing Engineering Technologist Name Role Phone Genevieve Baez MD Primary Care Provider [phone] Encounter Details Date Type Department Care Team (Late st Contact Info) Description 06/20/2024 Interpretation Only [address] [address] Iain Reyes MD [address] [place], [place] [id number] Social History Tobacco Use Types Packs/Day Years Used Date Smoking Tobacco: Never Smokeless Tobacco: Never Alcohol Use Standard Drinks/Week Comments Never 0 (1 standard drink = 0.6 oz pur e alcohol) [facility] Utilities Answer Date Recorded In the [...] in a snf (including now)? No 03/18/2024 IPV Inpatient Questions [...] AM EDT) PT CLASS E RAD ADMITDTTM [id number] RAD PT [facility] MD INFO [id number]^Findle y^Christopher^Carolyn d RAD EXAM DESC CTAPWO^CT Abdomen and Pelvis w/o Contrast^RIS [facility] WORKSTATION ID [id number] [facility] Anatomical Region Laterality Modality Abdomen, Pelvis Computed [...] who have questions please contact the health foster care therapist that requested your imaging first. ? Electronically signed by: Rajinder Lam MD, [facility] ([phone]), at 06/20/2024 10:04 AM Narrative 06/20/2024 10:04 AM EDT EXAMINATION: CT [...] patients who have questions please contactthe health foster care therapist that requested your imaging first. Electronically signed by: Rajinder Lam MD, [facility]([phone]), at 06/20/2024 10:04 AM Iain Reyes MD IMG CT ORDERABL ES documented in this encounter Visit Diagnoses Not on filedocumented in this encounter Care Teams Manufacturing Engineering Technologist Relationship Specialty Start Date End Date Genevieve Baez MD [address] [place] [address] PCP - General Family Medicine 07/22/23 documented as of this encounter
--- OUTSIDE RECORDS SUMMARY | 2024-11-04 00:22 | XMS_ITS | Encounter Summary ---
Author Organization [facility] [place] [address] Care Team Providers Care Birth Certificate Clerk Name Role Phone Genevieve Baez MD Primary Care Provider [phone] Encounter Details Date Type Department Care Team (Late st Contact Info) Description 06/20/2024 Interpretation Only [address] [address] Iain Reyes MD [address] [place], [place] [address] Social History Tobacco Use Types Packs/Day Years Used Date Smoking Tobacco: Never Smokeless Tobacco: Never Alcohol Use Standard Drinks/Week Comments Never 0 (1 standard drink = 0.6 oz pur e alcohol) [facility] Utilities Answer Date Recorded In the past [...] place to sleep or slept in a alf (including now)? No 03/18/2024 IPV Inpatient Questions [...] AM EDT) PT CLASS E RAD ADMITDTTM [id number] RAD PT RAD MD INFO [id number]^Findle y^Christopher^Carolyn d RAD EXAM DESC XCXR1^XR Chest 1 View^RIS [facility] WORKSTATION ID [id number] [facility] Anatomical Region Laterality Modality Chest N/A [...] have questions please contact the health care tech that requested your imaging first. ? Electronically signed [facility]: [facility] ([phone]), at 06/20/2024 8:43 AM Narrative 06/20/2024 8:43 [...] who have questions please contactthe health care tech that requested your imaging first. Electronically signed by: Eliane Stewart [facility]([phone]), at 06/20/2024 8:43 AM Iain Reyes MD IMG DX ORDERABL ES documented in this encounter Visit Diagnoses Not on filedocumented in this encounter Care Teams Birth Certificate Clerk Relationship Specialty Start Date End Date Genevieve Baez MD [address] [place] [address] PCP - General Family Medicine 07/22/23 documented as of this encounter
--- OUTSIDE RECORDS SUMMARY | 2024-11-04 00:22 | XMS_ITS | Encounter Summary ---
Author Organization [facility] [place] [address] Care Team Providers Care Tick Sewer Name Role Phone Genevieve Baez MD Primary Care Provider [phone] Encounter Details Date Type Department Care Team (Late st Contact Info) Description 06/23/2024 Interpretation Only [address] [address] Thom Albrecht MD [address] [place] [address] Social History Tobacco Use Types Packs/Day Years Used Date Smoking Tobacco: Never Smokeless Tobacco: Never Alcohol Use Standard Drinks/Week Comments Never 0 (1 standard drink = 0.6 oz pur e alcohol) [facility] Utilities Answer Date Recorded In the past 12 months has [employer] electric, gas, oil, or water company threatened [...] in a fdc (including now)? No 03/18/2024 IPV Inpatient Questions [...] AM EDT) PT CLASS I RAD ADMITDTTM [id number] RAD PT RAD INFO [id number]^Mcdoug all^Thom^Terry RAD EXAM DESC XCXR1^XR Chest 1 View^RIS RAD WORKSTATION ID [id number] [facility] Anatomical Region Laterality Modality Chest N/A [...] who have questions please contact the health mall plant caretaker that requested your imaging first. ? Narrative [...] patients who have questions please contactthe health mall plant caretaker that requested your imaging first. Thom C Trena MD IMG DX ORDERABLES documented in this encounter Visit Diagnoses Not on filedocumented in this encounter Care Teams Tick Sewer Relationship Specialty Start Date End Date Genevieve Baez MD [address] [place] [address] PCP - General Family Medicine 07/22/23 documented as of this encounter
--- OUTSIDE RECORDS SUMMARY | 2024-11-04 00:22 | XMS_ITS | Encounter Summary ---
Author Organization [facility] [place] [address] Care Team Providers Care Composite Worker Name Role Phone Genevieve Baez MD Primary Care Provider [phone] Encounter Details Date Type Department Care Team (Late st Contact Info) Description 06/20/2024 Lab [place] [id number] Iain Reyes MD [address] [place] [address] Social History Tobacco Use Types Packs/Day Years Used Date Smoking Tobacco: Never Smokeless Tobacco: Never Alcohol Use Standard Drinks/Week Comments Never 0 (1 standard drink = 0.6 oz pur e alcohol) [facility] Utilities Answer Date Recorded In the past 12 months has [employer] electric, gas, oil, or water company threatened [...] at 120 hours 06/28/2024 7:01 PM EDT [facility] Blood VENOUS BLOOD SPECIMEN / Unknown 06/23/2024 10:50 AM EDT 06/23/2024 5:26 PM EDT Thom Albrecht MD MICROBIOLOGY - BLOOD ORDERABLES Performing Organization Address [facility] Co de Phone Number [facility] [place] [address] * Urine culture (06/23/2024 7:55 AM EDT) Urine Culture 10,000-49,0 00 cfu/ml mixed mucosal dapnhe 06/24/2024 1:07 PM EDT [facility] Urine URINE SPECIMEN OBTAINED BY CLEAN CATCH PROCEDURE / Unknown 06/23/2024 7:55 AM EDT 06/23/2024 5:26 PM EDT Thom Albrecht MD MICROBIOLOGY - GENER AL ORDERABLES Performing Organization Address [facility] Co de Phone Number [facility] [place] [address] * Blood culture (06/21/2024 2:57 PM EDT) Blood Culture No growth at 120 hours 06/26/2024 11:01 PM EDT [facility] Blood VENOUS BLOOD SPECIMEN / Unknown 06/21/2024 2:57 PM EDT 06/21/2024 10:07 PM EDT Thom Albrecht MD MICROBIOLOGY - BLOOD ORDERABLES Performing Organization Address [facility] Co de Phone Number [facility] [place] [address] * (ABNORMAL) Blood culture (06/20/2024 7:52 AM EDT) Blood Culture Coagulase Negative Staphylococcus species(A) 06/25/2024 8:11 AM EDT [facility] Comment: detected by PCR Interpretation of the importance of skin daphne such as Coag Negative Staph, Viridans Strep, Corynebacteria and other Gram Positive orgs from a single Blood Culture set requires clinical correlation. Gram Stain Aerobic Bottle: Gram positive cocci in clusters(A) 06/25/2024 8:11 AM EDT [facility] Blood VENOUS BLOOD SPECIMEN / Unknown 06/20/2024 7:52 AM EDT 06/20/2024 10:02 AM EDT Iain Reyes MD MICROBIOLOGY - BLOOD ORDERABLES Performing Organization Address [facility] Co de Phone Number [facility] [place] [address] * (ABNORMAL) Urine culture (06/20/2024 7:36 AM EDT) Urine Culture Greater than 100,000 cfu/ml Pseudomonas aeruginosa(A) VITEK 2 METHOD 06/22/2024 7:50 AM EDT [facility] Urine URINE SPECIMEN OBTAINED [...] - GENER AL ORDERABLES Performing Organization Address [facility] Co de Phone Number [facility] [place] [address] documented in this encounter Visit Diagnoses Not on filedocumented in this encounter Care Teams Composite Worker Relationship Specialty Start Date End Date Genevieve Baez MD [address] [place] [address] PCP - General Family Medicine 07/22/23 documented as of this encounter
--- OUTSIDE RECORDS SUMMARY | 2024-11-04 00:22 | XMS_ITS | Encounter Summary ---
Author Organization [facility] Address [facility] [place] [address] Care Team Providers Care Global Clinical Leader Name Role Phone Genevieve Baez MD Primary Care Provider [phone] Reason for Visit * Reason Comments Medication Refill Encounter Details Date Type Department Care Team (Late st Contact Info) Description 10/27/2024 [place] [address] Jameel Joyce MD [facility] [place] [address] Social History Tobacco Use Types Packs/Day Years [...] slept in a fci (including now)? No 03/18/2024 DH IPV Inpatient [...] on filedocumented in this encounter Care Teams Global Clinical Leader Relationship Specialty Start Date End Date Genevieve Baez MD [address] [place] [address] PCP - General Family Medicine 07/22/23 documented as of this encounter
--- OUTSIDE RECORDS SUMMARY | 2024-11-04 00:22 | XMS_ITS | Encounter Summary ---
Author Organization [facility] [place] [address] Care Team Providers Care Hospital Aide Name Role Phone Genevieve Baez MD Primary Care Provider [phone] Reason for Referral * Consultation (Routine) - Closed Specialty Diagnoses / Procedures Referred By Contmadan t Referred To Contact Sleep Center Diagnoses Sleep apnea, unspecified type Scarlett Zhu MD [address] [place] [address] [facility] [address] [place] [address] Referral ID Status Reason Start Date Expiration Date V isits Requested Visits Authorized [id number] Closed Consult, Test & Treat PCP Updated and/or Approved 2024 10/12/2024 6 6 Encounter Details Date Type Department Care Team (Late st Contact Info) Description 04/26/2024 Transcribe Orders eDH Incoming Referrals [phone] Scarlett Zhu MD [address] [place] [address] Sleep apnea, unspecified type Social History Tobacco Use Types Packs/Day Years Used Date Smoking Tobacco: Never Smokeless Tobacco: Never Alcohol Use Standard Drinks/Week Comments Never 0 (1 standard drink = 0.6 oz pur e alcohol) [facility] Utilities Answer Date Recorded In [...] in a longterm (including now)? No 03/18/2024 IPV Inpatient Questions [...] type documented in this encounter Care Teams Hospital Aide Relationship Specialty Start Date End Date Genevieve Baez MD [address] [place] [address] PCP - General Family Medicine 07/22/23 documented as of this encounter
--- OUTSIDE RECORDS SUMMARY | 2024-11-04 00:23 | XMS_ITS | Encounter Summary ---
Author Organization [facility] [place] [address] Care Team Providers Care In Home Sales Representative Name Role Phone Genevieve Baez MD Primary Care Provider [phone] Encounter Details Date Type Department Care Team (Late st Contact Info) Description 11/24/2023 Interpretation Only [facility] [address] [place] [address] Shoaib Barr MD [address] [place] [address] Social History Tobacco Use Types Packs/Day Years Used Date Smoking Tobacco: Never Smokeless Tobacco: Never Alcohol Use Standard Drinks/Week Comments Never 0 (1 standard drink = 0.6 oz pur e alcohol) [facility] Utilities Answer Date Recorded In the past 12 months has [employer] electric, gas, oil, or water company threatened [...] in a mcc (including now)? No 10/27/2023 IPV Inpatient Questions [...] PM EST) PT CLASS E RAD ADMITDTTM [id number] RAD PT RAD INFO [id number]^Potter^ Shoaib RAD EXAM DESC CTAPW^CT Abdomen and [...] who have questions please contact the health managed care director that requested your imaging first. ? Electronically signed by: Rayna Flores MD, [facility] ([phone]), at 11/25/2023 2:06 AM Narrative 11/25/2023 2:06 [...] patients who have questions please contactthe health managed care director that requested your imaging first. Electronically signed by: Rayna Flores MD, [facility]([phone]), at 11/25/2023 2:06 AM Shoaib Barr MD IMG CT ORDERABLES documented in this encounter Visit Diagnoses Not on filedocumented in this encounter Care Teams In Home Sales Representative Relationship Specialty Start Date End Date Genevieve Baez MD [address] [place] [address] PCP - General Family Medicine 07/22/23 documented as of this encounter
--- OUTSIDE RECORDS SUMMARY | 2024-11-04 00:23 | XMS_ITS | Encounter Summary ---
Author Organization [facility] [place] [address] Care Team Providers Care Tender Coordinator Name Role Phone Genevieve Baez MD Primary Care Provider [phone] Encounter Details Date Type Department Care Team (Late st Contact Info) Description 12/12/2023 Interpretation Only [address] [address] Vish Leija Jr., MD [address] [place], [place] [address] Social History Tobacco Use Types Packs/Day Years Used Date Smoking Tobacco: Never Smokeless Tobacco: Never Alcohol Use Standard Drinks/Week Comments Never 0 (1 standard drink = 0.6 oz pur e alcohol) [facility] Utilities Answer Date Recorded In the past 12 months has [employer] electric, gas, oil, or water company threatened [...] in a fci (including now)? No 10/27/2023 IPV Inpatient Questions [...] PM EST) PT CLASS E RAD ADMITDTTM [id number] RAD PT RAD INFO [id number]^Leija^G erald^J RAD EXAM DESC XCXR1^XR Chest 1 [...] questions please contact the health health care coordinator that requested your imaging first. ? Electronically signed by: Iram Brooke MD, [facility] ([phone]), at 12/12/2023 5:06 PM Narrative 12/12/2023 5:06 PM EST EXAMINATION: XR [...] have questions please contactthe health health care coordinator that requested your imaging first. Electronically signed by: Iram Brooke MD, [facility]([phone]), at 12/12/2023 5:06 PM Vish Leija Jr., MD IMG DX ORDERABLES documented in this encounter Visit Diagnoses Not on filedocumented in this encounter Care Teams Tender Coordinator Relationship Specialty Start Date End Date Genevieve Baez MD [address] [place] [address] PCP - General Family Medicine 07/22/23 documented as of this encounter
--- OUTSIDE RECORDS SUMMARY | 2024-11-04 00:23 | XMS_ITS | Encounter Summary ---
Author Organization [facility] [place] [address] Care Team Providers Care It Programmer Name Role Phone Genevieve Baez MD Primary Care Provider [phone] Encounter Details Date Type Department Care Team (Late st Contact Info) Description 12/01/2023 9:48 PM EST - 12/01/2023 11:59 PM [facility] Hospital Encounter [facility] [address] [place] [address] Shoaib Barr MD [address] [place] [address] Discharge Disposition: Home Social History Tobacco Use Types Packs/Day Years Used Date Smoking Tobacco: Never Smokeless Tobacco: Never Alcohol Use Standard Drinks/Week Comments Never 0 (1 standard drink = 0.6 oz pur e alcohol) [facility] Utilities Answer Date Recorded In [...] Call 911 before administration. 4 mL 11/09/2023 baclofen (Lioresal) 20 mg tablet Take 1 [...] Greater than 100,000 cfu/ml Klebsiella pneumoniae (A) [facility] Organism Pseudomonas aeruginosa(A) [facility] Organism Klebsiella pneumoniae(A) [facility] Urine 12/01/2023 9:01 PM EST 12/02/2023 [...] Barr MD MICROBIOLOGY - [place] [address] documented in this encounter Visit Diagnoses Not on filedocumented in this encounter Care Teams It Programmer Relationship Specialty Start Date End Date Genevieve Baez MD [address] [place] [address] PCP - General Family Medicine 07/22/23 documented as of this encounter
--- OUTSIDE RECORDS SUMMARY | 2024-11-04 00:23 | XMS_ITS | Encounter Summary ---
Author Organization [facility] [place] [address] Care Team Providers Care Motel Front Desk Attendant Name Role Phone Genevieve Baez MD Primary Care Provider [phone] Encounter Details Date Type Department Care Team (Late st Contact Info) Description 12/31/2023 Interpretation Only [address] [address] Genevieve Baez MD [address] [place] [address] Social History Tobacco Use Types Packs/Day Years Used Date Smoking Tobacco: Never Smokeless Tobacco: Never Alcohol Use Standard Drinks/Week Comments Never 0 (1 standard drink = 0.6 oz pur e alcohol) [facility] Utilities Answer Date Recorded In the past 12 months has [employer] electric, gas, oil, or water company threatened [...] Diagnosis Comments MRI PELVIS SOFT TISSUE (GI EXECUTIVE COMPENSATION ANALYST) WWO CONTRAST Routine 12/31/2023 1:46 PM EST documented in this encounter Results * MRI Pelvis Soft Tissue (GI EXECUTIVE COMPENSATION ANALYST) wwo Contrast (12/31/2023 1:46 PM EST) PT CLASS O RAD ADMITDTTM [id number] RAD PT RAD INFO [id number]^Sasha^ Genevieve RAD EXAM DESC MRPELWW^MRI Pelvis w/ [...] have questions please contact the health rn intensive care unit that requested your imaging first. ? Narrative [...] who have questions please contactthe health rn intensive care unit that requested your imaging first. Genevieve Baez MD IMG MRI ORDERABLES documented in this encounter Visit Diagnoses Not on filedocumented in this encounter Care Teams Motel Front Desk Attendant Relationship Specialty Start Date End Date Genevieve Baez MD [address] [place] [address] PCP - General Family Medicine 07/22/23 documented as of this encounter
--- OUTSIDE RECORDS SUMMARY | 2024-11-04 00:23 | XMS_ITS | Encounter Summary ---
Author Organization [facility] [address] Care Team Providers Care Staff Appraiser Name Role Phone Genevieve Baez MD Primary Care Provider [phone] Encounter Details Date Type Department Care Team (Late st Contact Info) Description 12/12/2023 5:22 PM EST - 12/12/2023 11:59 PM [facility] Hospital Encounter [facility] Lab [address] [place] [address] Vish Leija Jr., MD [address] [place] [address] Thom Albrecht MD [address] [place] [address] Discharge Disposition: Home Social History Tobacco Use Types Packs/Day Years Used Date Smoking Tobacco: Never Smokeless Tobacco: Never Alcohol Use Standard Drinks/Week Comments Never 0 (1 standard drink = 0.6 oz pur e alcohol) [facility] Utilities Answer Date Recorded In the past 12 months has [employer] electric, gas, oil, or water company threatened [...] slept in a chcf (including now)? No 10/27/2023 DH IPV Inpatient [...] multiple bacterial species suggesting mucosal contamination. (A) [facility] Urine 12/13/2023 5:15 AM EST 12/13/2023 12:21 PM EST Narrative Resulting Agency Comment Spec In Lab Thom Albrecht MD MICROBIOLOGY - GENER AL ORDERABLES [facility] [place] [address] * Blood culture (12/12/2023 4:46 PM EST) Blood Culture No growth at 5 days. [facility] Blood 12/12/2023 4:46 PM EST 12/13/2023 1:49 PM EST Comment:R Hand #2 Narrative Resulting Agency Comment Spec In Lab Vish Leija Jr., MD MICROBIOLOGY - BL OOD ORDERABLES Performing Organization Address City/[facility] [place] [place] [address] * Blood culture (12/12/2023 4:46 PM EST) Blood Culture No growth at 5 days. [facility] Blood 12/12/2023 4:46 PM EST 12/13/2023 1:51 PM EST Comment:L AC #1 Narrative Resulting Agency Comment Spec In Lab Vish Leija Jr., MD MICROBIOLOGY - BL OOD ORDERABLES Performing Organization Address [facility] [place] [place] [address] documented in this encounter Visit Diagnoses Not on filedocumented in this encounter Care Teams Staff Appraiser Relationship Specialty Start Date End Date Genevieve Baez MD [address] [place] [address] PCP - General Family Medicine 07/22/23 documented as of this encounter
--- OUTSIDE RECORDS SUMMARY | 2024-11-04 00:23 | XMS_ITS | Encounter Summary ---
Author Organization [facility] [place] [address] Care Team Providers Care Harness Mender Name Role Phone Genevieve Baez MD Primary Care Provider [phone] Encounter Details Date Type Department Care Team (Late st Contact Info) Description 12/22/2023 10:29 AM EST - 12/22/2023 11:[address] [facility] Hospital Encounter [facility] Lab [address] [place] [address] Shoaib Barr MD [address] [place] [address] Discharge Disposition: Home Social History Tobacco Use Types Packs/Day Years Used Date Smoking Tobacco: Never Smokeless Tobacco: Never Alcohol Use Standard Drinks/Week Comments Never 0 (1 standard drink = 0.6 oz pur e alcohol) [facility] Utilities Answer Date Recorded In the [...] Blood Culture No growth at 5 days. [facility] Blood 12/22/2023 9:56 AM EST 12/22/2023 6:02 PM EST Narrative Resulting Agency Comment Spec In Lab Shoaib Barr MD MICROBIOLOGY - BLOOD ORDERABLES [facility] [place] [address] * (ABNORMAL) Urine culture (12/22/2023 9:25 AM EST) Urine Culture 50,000-99,000 cfu/ml mixed mucosal [place] Note: Culture shows multiple bacterial species suggesting mucosal contamination. (A) [facility] Urine 12/22/2023 9:25 AM EST 12/22/2023 5:58 PM EST Narrative Resulting Agency Comment Spec In Lab Shoaib Barr MD MICROBIOLOGY - GENER AL ORDERABLES Performing Organization Address City/[facility]/ZIP Co de Phone Number [facility] [place] [address] * Blood culture (12/22/2023 9:25 AM EST) Blood Culture No growth at 5 days. [facility] Blood 12/22/2023 9:25 AM EST 12/22/2023 6:01 PM EST Narrative Resulting Agency Comment Spec In Lab Shoaib Barr MD MICROBIOLOGY - BLOOD ORDERABLES Performing Organization Address [facility] Co de Phone Number [facility] [place] [address] documented in this encounter Visit Diagnoses Not on filedocumented in this encounter Care Teams Harness Mender Relationship Specialty Start Date End Date Genevieve Baez MD [address] [place] [address] PCP - General Family Medicine 07/22/23 documented as of this encounter
--- OUTSIDE RECORDS SUMMARY | 2024-11-04 00:23 | XMS_ITS | Encounter Summary ---
Author Organization [facility] Address [facility] [place] [address] Care Team Providers Care Home Care Rn Name Role Phone Genevieve Baez MD Primary Care Provider [phone] Reason for Referral * Consultation (Routine) - Canceled Specialty Diagnoses / Procedures Referred By Ness t Referred To Contact Urology Diagnoses Quadriplegia, unspecified Erectile dysfunction, unspecified erectile dysfunction type INTERESTED IN SEEING DR GELLER FOR CONSIDERATION OF PENILE PROSTHESIS Scarlett Zhu MD [address] [place] [address] [address] [facility] [address] [place] [address] [facility] [place] [address] Referral ID Status Reason Start Date Expiration Date Visits Requested Visits Authorized [id number] Canceled Consult, Test & Treat PCP Updated and/or Approved 01/20/2024 01/19/2025 6 6 Encounter Details Date Type Department Care Team (Late st Contact Info) Description 01/20/2024 Transcribe Orders eDH Incoming Referrals [phone] Scarlett Zhu MD [address] [place] [address] Quadriplegia, unspecified; Erectile dysfunction, unspecified erectile dysfunction type Social History Tobacco Use Types Packs/Day Years Used Date Smoking Tobacco: Never Smokeless Tobacco: Never Alcohol Use Standard Drinks/Week Comments Never 0 (1 standard drink = 0.6 oz pur e alcohol) [facility] Utilities Answer Date Recorded In the past [...] place to sleep or slept in a usp (including now)? No 10/27/2023 DH IPV Inpatient [...] type documented in this encounter Care Teams Home Care Rn Relationship Specialty Start Date End Date Genevieve Baez MD [address] [place] [address] PCP - General Family Medicine 07/22/23 documented as of this encounter
--- OUTSIDE RECORDS SUMMARY | 2024-11-04 00:23 | XMS_ITS | Encounter Summary ---
[place] [address] Care Team Providers Care Materials Development Engineer Name Role Phone Genevieve Baez MD Primary Care Provider [phone] Reason for Referral * Consultation (Urgent) - Authorized Specialty Diagnoses / Procedures Referred By Contac t Referred To Contact Infectious Diseases Diagnoses Pressure injury of skin of buttock, unspecified injury stage, unspecified laterality Osteomyelitis, unspecified Genevieve Baez MD [address] [place] [address] [facility] Infectious Dis [address] [place] [id number] Referral ID Status Reason Start Date Expiration Date Visits Requested Visits Authorized [id number] Authorized Consult, Test & Treat PCP Updated and/or Approved 02/29/2024 02/28/2025 6 6 Encounter Details Date Type Department Care Team (Latest Contact Info) Description 02/29/2024 Transcribe Orders eDH Incoming Referrals [phone] Genevieve Baez MD [address] [place] [address] Pressure injury of skin of buttock, unspecified injury stage, unspecified laterality Social History Tobacco Use Types Packs/Day Years Used Date Smoking Tobacco: Never Smokeless Tobacco: Never Alcohol Use Standard Drinks/Week Comments Never 0 (1 standard drink = 0.6 oz pur e alcohol) [facility] Utilities Answer Date Recorded In the past [...] in a snf (including now)? No 10/27/2023 DH IPV Inpatient [...] laterality documented in this encounter Care Teams Materials Development Engineer Relationship Specialty Start Date End Date Genevieve Baez MD [address] [place] [address] PCP - General Family Medicine 07/22/23 documented as of this encounter
--- OUTSIDE RECORDS SUMMARY | 2024-11-04 00:23 | XMS_ITS | Encounter Summary ---
Author Organization [facility] [place] [address] Care Team Providers Care Communications Designer Name Role Phone Genevieve Baez MD Primary Care Provider [phone] Encounter Details Date Type Department Care Team (Late st Contact Info) Description 11/24/2023 9:08 PM EST - 11/24/2023 11:59 PM [facility] Hospital Encounter [facility] Lab [address] [place] [address] Shoaib Barr MD [address] [place] [address] Discharge Disposition: Home Social History Tobacco Use Types Packs/Day Years Used Date Smoking Tobacco: Never Smokeless Tobacco: Never Alcohol Use Standard Drinks/Week Comments Never 0 (1 standard drink = 0.6 oz pur e alcohol) [facility] Utilities Answer Date Recorded In [...] Blood Culture No growth at 5 days. [facility] Blood TOPOGRAPHY UNKNOWN / Unknown 11/24/2023 9:33 PM EST 11/25/2023 4:51 PM EST Narrative Resulting Agency Comment Spec In Lab Shoaib Barr MD MICROBIOLOGY - BLOOD ORDERABLES Performing Organization Address City/State/[facility] Co de Phone Number [facility] [place] [address] * Blood culture (11/24/2023 8:48 PM EST) Blood Culture No growth at 5 days. [facility] Blood TOPOGRAPHY UNKNOWN / Unknown 11/24/2023 8:48 PM EST 11/25/2023 4:50 PM EST Narrative Resulting Agency Comment Spec In Lab Shoaib Barr MD MICROBIOLOGY - BLOOD ORDERABLES [facility] [place] [address] * (ABNORMAL) Urine culture (11/24/2023 8:30 PM EST) Urine Culture Greater than 100,000 cfu/ml Klebsiella pneumoniae Greater than 100,000 cfu/ml Pseudomonas aeruginosa (A) [facility] Organism Klebsiella pneumoniae(A) [facility] Organism Pseudomonas aeruginosa(A) [facility] Urine 11/24/2023 8:30 PM EST 11/25/2023 [...] Barr MD MICROBIOLOGY - GENER AL ORDERABLES [facility] [place] [address] documented in this encounter Visit Diagnoses Not on filedocumented in this encounter Care Teams Communications Designer Relationship Specialty Start Date End Date Genevieve Baez MD [address] [place] [address] PCP - General Family Medicine 07/22/23 documented as of this encounter
--- OUTSIDE RECORDS SUMMARY | 2024-11-04 00:23 | XMS_ITS | Encounter Summary ---
Author Organization [facility] [place] [address] Care Team Providers Care Brand Protection Manager Name Role Phone Genevieve Baez MD Primary Care Provider [phone] Encounter Details Date Type Department Care Team (Late st Contact Info) Description 11/24/2023 Interpretation Only [facility] [address] [place] [address] Shoaib Barr MD [address] [place] [address] Social History Tobacco Use Types Packs/Day Years Used Date Smoking Tobacco: Never Smokeless Tobacco: Never Alcohol Use Standard Drinks/Week Comments Never 0 (1 standard drink = 0.6 oz pur e alcohol) [facility] Utilities Answer Date Recorded In the past 12 months has [employer] electric, gas, oil, or water company threatened [...] slept in a detention (including now)? No 10/27/2023 DH IPV Inpatient [...] on filedocumented in this encounter Care Teams Brand Protection Manager Relationship Specialty Start Date End Date Genevieve Baez MD [address] [place] [address] PCP - General Family Medicine 07/22/23 documented as of this encounter
--- OUTSIDE RECORDS SUMMARY | 2024-11-04 00:23 | XMS_ITS | Encounter Summary ---
Author Organization [facility] [place] [address] Care Team Providers Care Executive Recruiter Name Role Phone Genevieve Baez MD Primary Care Provider [phone] Encounter Details Date Type Department Care Team (Late st Contact Info) Description 12/22/2023 Interpretation Only [facility] [address] [place] [address] Shoaib Barr MD [address] [place] [address] Social History Tobacco Use Types Packs/Day Years Used Date Smoking Tobacco: Never Smokeless Tobacco: Never Alcohol Use Standard Drinks/Week Comments Never 0 (1 standard drink = 0.6 oz pur e alcohol) [facility] Utilities Answer Date Recorded In the past 12 months has [employer] electric, gas, oil, or water company threatened [...] in a care home (including now)? No 10/27/2023 IPV Inpatient [...] PM EST) PT CLASS E RAD ADMITDTTM [id number] RAD PT RAD MD INFO [id number]^Potter^ Shoaib RAD EXAM DESC CTAPW^CT Abdomen and [...] caregiver that requested your imaging first. ? Electronically signed by: Laila Estes MD, [facility] ([phone]), at 12/22/2023 1:08 PM Narrative 12/22/2023 1:08 PM EST EXAMINATION: CT [...] on filedocumented in this encounter Care Teams Executive Recruiter Relationship Specialty Start Date End Date Genevieve Baez MD [address] [place] [address] PCP - General Family Medicine 07/22/23 documented as of this encounter
--- OUTSIDE RECORDS SUMMARY | 2024-11-04 00:23 | XMS_ITS | Encounter Summary ---
Author Organization [facility] [place] [address] Care Team Providers Care Meat Boner Name Role Phone Genevieve Baez MD Primary Care Provider [phone] Encounter Details Date Type Department Care Team (Late st Contact Info) Description 12/22/2023 Interpretation Only [facility] [address] [place] [address] Shoaib Barr MD [address] [place] [address] Social History Tobacco Use Types Packs/Day Years Used Date Smoking Tobacco: Never Smokeless Tobacco: Never Alcohol Use Standard Drinks/Week Comments Never 0 (1 standard drink = 0.6 oz pur e alcohol) [facility] Utilities Answer Date Recorded In the past 12 months has [employer] electric, gas, oil, or water company threatened [...] in a long-term (including now)? No 10/27/2023 IPV Inpatient Questions [...] AM EST) PT CLASS E RAD ADMITDTTM [id number] RAD PT RAD INFO [id number]^Potter^ Shoaib RAD EXAM DESC XCXR1^XR Chest 1 [...] have questions please contact the health care specialist that requested your imaging first. [...] who have questions please contactthe health care specialist that requested your imaging first. Shoaib Barr MD IMG DX ORDERABLES documented in this encounter Visit Diagnoses Not on filedocumented in this encounter Care Teams Meat Boner Relationship Specialty Start Date End Date Genevieve Baez MD [address] [place] [address] PCP - General Family Medicine 07/22/23 documented as of this encounter
--- OUTSIDE RECORDS SUMMARY | 2024-11-04 00:23 | XMS_ITS | Encounter Summary ---
Author Organization [facility] Address [facility] [place] [address] Care Team Providers Care Business Manager Name Role Phone Genevieve Baez MD Primary Care Provider [phone] Reason for Visit * Reason Comments Medication Refill Encounter Details Date Type Department Care Team (Late st Contact Info) Description 11/23/2023 Refill [place] [address] Jameel Joyce MD [facility] [place] [address] Social History Tobacco Use Types Packs/Day Years Used Date Smoking Tobacco: Never Smokeless Tobacco: Never Alcohol Use Standard Drinks/Week Comments Never 0 (1 standard drink = 0.6 oz pur e alcohol) [facility] Utilities Answer Date Recorded In [...] in a long term (including now)? No 10/27/2023 DH IPV Inpatient [...] on filedocumented in this encounter Care Teams Business Manager Relationship Specialty Start Date End Date Genevieve Baez MD [address] [place] [address] PCP - General Family Medicine 07/22/23 documented as of this encounter
--- OUTSIDE RECORDS SUMMARY | 2024-11-04 00:23 | XMS_ITS | Encounter Summary ---
Author Organization [facility] [place] [address] Care Team Providers Care Capsule Filler Name Role Phone Genevieve Baez MD Primary Care Provider [phone] Encounter Details Date Type Department Care Team (Late st Contact Info) Description 11/24/2023 Interpretation Only [facility] [address] [place] [address] Shoaib Barr MD [address] [place] [address] Social History Tobacco Use Types Packs/Day Years Used Date Smoking Tobacco: Never Smokeless Tobacco: Never Alcohol Use Standard Drinks/Week Comments Never 0 (1 standard drink = 0.6 oz pur e alcohol) [facility] Utilities Answer Date Recorded In the past 12 months has [email or web address] electric, gas, oil, or water company threatened [...] in a assisted (including now)? No 10/27/2023 IPV Inpatient Questions [...] PM EST) PT CLASS E RAD ADMITDTTM [id number] RAD PT RAD INFO [id number]^Potter^ Shoaib RAD EXAM DESC XCXR1^XR Chest 1 [...] who have questions please contact the health primary care physician that requested your imaging first. ? Electronically signed by: Caleb Branch MD, [facility] ([phone]), at 11/24/2023 11:07 PM Narrative 11/24/2023 11:07 [...] patients who have questions please contactthe health primary care physician that requested your imaging first. Shoaib Barr MD IMG DX ORDERABLES documented in this encounter Visit Diagnoses Not on filedocumented in this encounter Care Teams Capsule Filler Relationship Specialty Start Date End Date Genevieve Baez MD [address] [place] [address] PCP - General Family Medicine 07/22/23 documented as of this encounter
--- OUTSIDE RECORDS SUMMARY | 2024-11-04 00:24 | XMS_ITS | Encounter Summary ---
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 living situation [facility], relationship with his care takers, and assistance [...] this.Called Dr. Molina's office and spoke w/ client care specialist 10/30. Awaiting call back from their office. [...] night I just want sleep. Lauri Jovel CUSTOMER DATA TECHNICIAN * Deisy Herrmann RCP - 11/03/2023 5:13 [...] tube, nephrolithiasis, recent UTI was transferred [facility] for currently being managed for septic shock [...] Franks MD Infectious Diseases Fellow Pager #: [phone] 11/03/2023 6:06 PM ID ATTENDING I have [...] Name: Nighat Barrios : 1965 Medical Record: [id number] Date of Service: 11/03/2023 Hospital Day # [...] MD Fellow Pulmonary & Critical Care Medicine [facility] Associated attestation - Makenzie Dominguez MD - [...] Note Patient: Nighat Barrios : 1965 Room: [address] Admit date: 10/25/2023 Attending: Yessi Lopes [...] who have questions please contact the health nurse healthcare manager that requested your imaging first. - CT [...] Procedure Component Value Units Date/Time Blood culture [[id number]] Collected: 11/01/23 1430 Lab Status: Preliminary result Specimen: Blood from Foot, Left Updated: 11/03/23 2301 Blood Culture No growth at 2 days. Blood culture [[id number]] Collected: 11/01/23 1420 Lab Status: Preliminary result Specimen: Blood from Foot, Right Updated: 11/03/23 2301 Blood Culture No growth at 2 days. Blood culture [[id number]] Collected: 10/30/23 1300 Lab Status: Preliminary result Specimen: Blood from Hand, Right Updated: 11/03/23 1502 Blood Culture No growth at 4 days. Blood culture [[id number]] (Abnormal) Collected: 10/30/23 1255 Lab Status: Preliminary [...] Cocci in clusters seen MRSA PCR Screen [place] [place] [[id number]] Collected: 10/29/23 0648 Lab Status: Final result Specimen: Nasopharyngeal Swab Updated: 10/29/23 1320 MRSA Result Negative MRSA Interp -- Methicillin-resistant Staphylococcus aureus (MRSA) is NOT DETECTED The MRSA target DNA sequences (mec and SCC) were not detected within the acceptable ranges using the Xpert MRSA NxG on the GeneXpert Dx System ([employer]). This suggests the absence of MRSA in the patient specimen submitted for testing. This test is cleared by the U.S. Food and Drug Administration for clinical use and its performance characteristics have been verified by the [facility] at [facility]. This result does not rule out the presence of any other organisms. Rare false negative results may occur if MRSA is present at low concentrations with much higher concentrations of other organisms including MRSE or S. aureus with an empty SCC cassette. Comment: [VERIFIED DATE]10.29.23 Verified By:Katherine Early (Electronic Signature) Blood culture [[id number]] Collected: 10/28/23 0922 Lab Status: Final result Specimen: Blood from Foot, Left Updated: 11/02/23 1502 Blood Culture No growth at 5 days. Blood culture [[id number]] Collected: 10/28/23 0910 Lab Status: Final result Specimen: Blood from Hand, Right Updated: 11/02/23 1502 Blood Culture No growth at 5 days. Blood culture [[id number]] Collected: 10/25/23 1050 Lab Status: Final result Specimen: Blood Updated: 10/30/23 1501 Blood Culture No growth at 5 days. Blood culture [[id number]] Collected: 10/25/23 1040 Lab Status: Final result Specimen: Blood Updated: 10/30/23 1501 Blood Culture No growth at 5 days. Urine culture Cystoscopic Urine [[id number]] (Abnormal) (Susceptibility) Collected: 10/25/23 0913 Lab Status: [...] Sensitive Penicillin Sensitive Vancomycin Sensitive Urine culture [[id number]] (Abnormal) (Susceptibility) Collected: 10/24/232056 Lab Status: Final [...] using in critically ill patients. Blood culture [[id number]] (Abnormal) (Susceptibility) Collected: 10/24/232056 Lab Status: Final result Specimen: Blood Updated: 10/31/23733 Blood Culture -- Pseudomonas aeruginosa detected by PCR Isolate saved. If future testing is required, contact the Microbiology Medical Doctor Md/Medical Director. Gram Stain Aerobic -- Growth detected in [...] regards to his living situation at the [facility], relationship with his care takers, and assistance [...] this.Called Dr. Molina's office and spoke w/ client care specialist 10/30. Awaiting call back 11/03. On 10/31 [...] combination of consolidation, atelectasis and/or pleural effusion SSMENT: Patient received on above noted settings. Tolerated [...] a hospital length of stay nutrition evaluation. Adoption Coordinator met with pt at bedside. He reports that his appetite is okay and that he eats as much of his meals as he can but sometimesis too fatigued to finish d/t difficulty breathing. Adoption Coordinator discussed ways to manage fatigue while eating [...] questions answered at this time Abdifatah Briseno, Sign Hanger * Adam Rpap MD - 11/02/2023 9:06 AM EST Images from the original note were not included. Urology Progress Note Patient: Nighat Barrios : 1965 Room: [address] Admit date: 10/25/2023 Attending: Yessi Lopes [...] who have questions please contact the health nurse healthcare manager that requested your imaging first. - CT [...] Procedure Component Value Units Date/Time Blood culture [[id number]] Collected: 10/30/23 1300 Lab Status: Preliminary result Specimen: Blood from Hand, Right Updated: 11/01/23 1502 Blood Culture No growth at 2 days. Blood culture [[id number]] (Abnormal) Collected: 10/30/23 1255 Lab Status: Preliminary [...] Cocci in clusters seen MRSA PCR Screen ([facility] [place] [[id number]] Collected: 10/29/23 0648 Lab Status: Final result Specimen: Nasopharyngeal Swab Updated: 10/29/23 1320 MRSA Result Negative MRSA Interp -- Methicillin-resistant Staphylococcus aureus (MRSA) is NOT DETECTED The MRSA target DNA sequences (mec and SCC) were not detected within the acceptable ranges using the Xpert MRSA NxG on the GeneXpert Dx System ([employer]). This suggests the absence of MRSA in the patient specimen submitted for testing. This test is cleared by the U.S. Food and Drug Administration for clinical use and its performance characteristics have been verified by the [facility] at [facility]. This result does not rule out the presence of any other organisms. Rare false negative results may occur if MRSA is present at low concentrations with much higher concentrations of other organisms including MRSE or S. aureus with an empty SCC cassette. Comment: [VERIFIED DATE]10.29.23 Verified By:Katherine Early (Electronic Signature) Blood culture [[id number]] Collected: 10/28/23 0922 Lab Status: Preliminary result Specimen: Blood from Foot, Left Updated: 11/01/23 1501 Blood Culture No growth at 4 days. Blood culture [[id number]] Collected: 10/28/23 0910 Lab Status: Preliminary result Specimen: Blood from Hand, Right Updated: 11/01/23 1501 Blood Culture No growth at 4 days. Blood culture [[id number]] Collected: 10/25/23 1050 Lab Status: Final result Specimen: Blood Updated: 10/30/23 1501 Blood Culture No growth at 5 days. Blood culture [[id number]] Collected: 10/25/23 1040 Lab Status: Final result Specimen: Blood Updated: 10/30/23 1501 Blood Culture No growth at 5 days. Urine culture Cystoscopic Urine [[id number]] (Abnormal) (Susceptibility) Collected: 10/25/23 0913 Lab Status: [...] Sensitive Penicillin Sensitive Vancomycin Sensitive Urine culture [[id number]] (Abnormal) (Susceptibility) Collected: 10/24/232056 Lab Status: Final [...] using in critically ill patients. Blood culture [[id number]] (Abnormal) (Susceptibility) Collected: 10/24/232056 Lab Status: Final result Specimen: Blood Updated: 10/31/23 0742 Blood Culture -- Pseudomonas aeruginosa detected by PCR Isolate saved. If future testing is required, contact the Microbiology Medical Doctor Md/Medical Director. Gram Stain Aerobic -- Growth detected in [...] regards to his living situation at the [facility], relationship with his care takers, and assistance [...] this.Called Dr. Molina's office and spoke w/ client care specialist 10/30. Awaiting call back 11/03. On 10/31 [...] combination of consolidation, atelectasis and/or pleural effusion SSMENT: Patient received on above noted settings. RN [...] who have questions please contact the health nurse healthcare manager that requested your imaging first. SSMENT: Pt [...] as obtain an EKG to ensure no MD. Additionally given that his TTE earlier this [...] Note Patient: Nighat Barrios : 1965 Room: [place] [address] Admit date: 10/25/2023 Attending: Yessi Lopes MD [...] who have questions please contact the health nurse healthcare manager that requested your imaging first. - CT [...] Procedure Component Value Units Date/Time Blood culture [[id number]] Collected: 10/30/23 1300 Lab Status: Preliminary result Specimen: Blood from Hand, Right Updated: 10/31/23 1501 Blood Culture No growth at 1 day. Blood culture [[id number]] (Abnormal) Collected: 10/30/23 1255 Lab Status: Preliminary [...] Cocci in clusters seen MRSA PCR Screen ([facility] [place] [[id number]] Collected: 10/29/23 0648 Lab Status: Final result Specimen: Nasopharyngeal Swab Updated: 10/29/23 1320 MRSA Result Negative MRSA Interp -- Methicillin-resistant Staphylococcus aureus (MRSA) is NOT DETECTED The MRSA target DNA sequences (mec and SCC) were not detected within the acceptable ranges using the Xpert MRSA NxG on the GeneXpert Dx System ([employer]). This suggests the absence of MRSA in the patient specimen submitted for testing. This test is cleared by the U.S. Food and Drug Administration for clinical use and its performance characteristics have been verified by the Clinical [employer] [facility] at [facility]. This result does not rule out the presence of any other organisms. Rare false negative results may occur if MRSA is present at low concentrations with much higher concentrations of other organisms including MRSE or S. aureus with an empty SCC cassette. Comment: [VERIFIED DATE]10.29.23 Verified By:Katherine Early (Electronic Signature) Blood culture [[id number]] Collected: 10/28/23 0922 Lab Status: Preliminary result Specimen: Blood from Foot, Left Updated: 10/31/23 1501 Blood Culture No growth at 3 days. Blood culture [[id number]] Collected: 10/28/23 0910 Lab Status: Preliminary result Specimen: Blood from Hand, Right Updated: 10/31/23 1501 Blood Culture No growth at 3 days. Blood culture [[id number]] Collected: 10/25/23 1050 Lab Status: Final result Specimen: Blood Updated: 10/30/23 1501 Blood Culture No growth at 5 days. Blood culture [[id number]] Collected: 10/25/23 1040 Lab Status: Final result Specimen: Blood Updated: 10/30/23 1501 Blood Culture No growth at 5 days. Urine culture Cystoscopic Urine [[id number]] (Abnormal) (Susceptibility) Collected: 10/25/23 0913 Lab Status: [...] Sensitive Penicillin Sensitive Vancomycin Sensitive Urine culture [[id number]] (Abnormal) (Susceptibility) Collected: 10/24/232056 Lab Status: Final [...] using in critically ill patients. Blood culture [[id number]] (Abnormal) (Susceptibility) Collected: 10/24/232056 Lab Status: Final result Specimen: Blood Updated: 10/31/23 0846 Blood Culture -- Pseudomonas aeruginosa detected by PCR Isolate saved. If future testing is required, contact the Microbiology Medical Doctor Md/Medical Director. Gram Stain Aerobic -- Growth detected in [...] regards to his living situation at the [facility], relationship with his care takers, and assistance [...] this.Called Dr. Molina's office and spoke w/ client care specialist 10/30. Awaiting call back 11/03. On 10/31 [...] KAN Ornelas 11/01/2023 [id number] * Maritza Tiwari, CUSTOMER DATA TECHNICIAN - 10/31/2023 9:15 PM EST Respiratory Therapy [...] to previous imaging. No acute cardiopulmonary process. SSMENT: 18:58 Patient had desaturation to 85% sustained [...] Will wean FIO2 as tolerated. MARITZA TIWARI, CUSTOMER DATA TECHNICIAN * Lauri Jovel RCP - 10/31/2023 7:31 [...] turned on his opposite side. Lauri Jovel CUSTOMER DATA TECHNICIAN * Vanesa Rojas RN - 10/31/2023 6:19 [...] Note Patient: Nighat Barrios : 1965 Room: [address] Admit date: 10/25/2023 Attending: Yessi Lopes [...] right upper extremity obscuring part of the oebax-lm-cspj. Left chest wall subcutaneous port with tip [...] who have questions please contact the health nurse healthcare manager that requested your imaging first. - CT [...] Procedure Component Value Units Date/Time Blood culture [[id number]] (Abnormal) Collected: 10/30/23 1255 Lab Status: Preliminary [...] Cocci in clusters seen MRSA PCR Screen ([facility] [place] [[id number]] Collected: 10/29/23 0676 Lab Status: Final result Specimen: Nasopharyngeal Swab Updated: 10/29/23 1320 MRSA Result Negative MRSA Interp -- Methicillin-resistant Staphylococcus aureus (MRSA) is NOT DETECTED The MRSA target DNA sequences (mec and SCC) were not detected within the acceptable ranges using the Xpert MRSA NxG on the GeneXpert Dx System ([employer]). This suggests the absence of MRSA in the patient specimen submitted for testing. This test is cleared by the U.S. Food and Drug Administration for clinical use and its performance characteristics have been verified by the Clinical [facility] [facility] [employer] [facility] at [facility]. This result does not rule out the presence of any other organisms. Rare false negative results may occur if MRSA is present at low concentrations with much higher concentrations of other organisms including MRSE or S. aureus with an empty SCC cassette. Comment: [VERIFIED DATE]10.29.23 Verified By:Katherine Early (Electronic Signature) Blood culture [[id number]] Collected: 10/28/23 0922 Lab Status: Preliminary result Specimen: Blood from Foot, Left Updated: 10/30/23 1501 Blood Culture No growth at 2 days. Blood culture [[id number]] Collected: 10/28/23 0910 Lab Status: Preliminary result Specimen: Blood from Hand, Right Updated: 10/30/23 1501 Blood Culture No growth at 2 days. Blood culture [[id number]] Collected: 10/25/23 1050 Lab Status: Final result Specimen: Blood Updated: 10/30/23 1501 Blood Culture No growth at 5 days. Blood culture [[id number]] Collected: 10/25/23 1040 Lab Status: Final result Specimen: Blood Updated: 10/30/23 1501 Blood Culture No growth at 5 days. Urine culture Cystoscopic Urine [[id number]] (Abnormal) (Susceptibility) Collected: 10/25/23 0913 Lab Status: [...] Sensitive Penicillin Sensitive Vancomycin Sensitive Urine culture [[id number]] (Abnormal) (Susceptibility) Collected: 10/24/232056 Lab Status: Final [...] using in critically ill patients. Blood culture [[id number]] (Abnormal) (Susceptibility) Collected: 10/24/232056 Lab Status: Final result Specimen: Blood Updated: 10/31/23733 Blood Culture -- Pseudomonas aeruginosa detected by PCR Isolate saved. If future testing is required, contact the Microbiology Medical Doctor Md/Medical Director. Gram Stain Aerobic -- Growth detected in [...] regards to his living situation at the [facility], relationship with his care takers, and assistance [...] this.Called Dr. Molina's office and spoke w/ client care specialist 10/30 however did not receive call back. [...] receiving only his 8pm medications. Lauri Jovel CUSTOMER DATA TECHNICIAN. * Rosmery Daly MD - 10/30/2023 5:50 [...] tube, nephrolithiasis, recent UTI was transferred from [facility] for currently being managed for septic shock [...] follow. Please page ID Green team (pager [phone]) with questions or concerns. Marcus Thomas MD Fellow, Infectious Disease Pager: [phone] Epic Chat 10/30/2023 ID ATTENDING I have [...] Note Patient: Nighat Barrios : 1965 Room: [place] [address]- Admit date: 10/25/2023 Attending: Yessi Lopes MD [...] right upper extremity obscuring part of the fvchk-co-kfio. Left chest wall subcutaneous port with tip [...] who have questions please contact the health nurse healthcare manager that requested your imaging first. - CT [...] Component Value Units Date/Time MRSA PCR Screen ([facility] [place] [[id number]] Collected: 10/29/23 0648 Lab Status: Final result Specimen: Nasopharyngeal Swab Updated: 10/29/23 1320 MRSA Result Negative MRSA Interp -- Methicillin-resistant Staphylococcus aureus (MRSA) is NOT DETECTED The MRSA target DNA sequences (mec and SCC) were not detected within the acceptable ranges using the Xpert MRSA NxG on the GeneXpert Dx System ([employer]). This suggests the absence of MRSA in the patient specimen submitted for testing. This test is cleared by the U.S. Food and Drug Administration for clinical use and its performance characteristics have been verified by the [facility] at [facility]. This result does not rule out the presence of any other organisms. Rare false negative results may occur if MRSA is present at low concentrations with much higher concentrations of other organisms including MRSE or S. aureus with an empty SCC cassette. Comment: [VERIFIED DATE]10.29.23 Verified By:Katherine Early (Electronic Signature) Blood culture [[id number]] Collected: 10/28/23 0922 Lab Status: Preliminary result Specimen: Blood from Foot, Left Updated: 10/29/23 1501 Blood Culture No growth at 1 day. Blood culture [[id number]] Collected: 10/28/23 0910 Lab Status: Preliminary result Specimen: Blood from Hand, Right Updated: 10/29/23 1501 Blood Culture No growth at 1 day. Blood culture [[id number]] Collected: 10/25/23 1050 Lab Status: Preliminary result Specimen: Blood Updated: 10/29/23 1501 Blood Culture No growth at 4 days. Blood culture [[id number]] Collected: 10/25/23 1040 Lab Status: Preliminary result Specimen: Blood Updated: 10/29/23 1501 Blood Culture No growth at 4 days. Urine culture Cystoscopic Urine [[id number]] (Abnormal) (Susceptibility) Collected: 10/25/2313 Lab Status: Final [...] Sensitive Penicillin Sensitive Vancomycin Sensitive Urine culture [[id number]] (Abnormal) (Susceptibility) Collected: 10/24/232056 Lab Status: Final [...] using in critically ill patients. Blood culture [[id number]] (Abnormal) (Susceptibility) Collected: 10/24/232056 Lab Status: Preliminary result Specimen: Blood Updated: 10/28/23 0806 Blood Culture -- Pseudomonas aeruginosa detected by PCR Isolate saved. If future testing is required, contact the Microbiology Medical Doctor Md/Medical Director. Gram Stain Aerobic -- Growth detected in [...] regards to his living situation at the [facility], relationship with his care takers, and assistance getting his motorized wheelchair in working condition. He will need FU URS/cystolitholapaxy for right 7mm UPJ stone, possibly right renal stones, residualbladder stones, which he is aware of. He will likely follow-up with his primary urologist for this.Called Dr. Molina's office and spoke w/ client care specialist 10/30. Awaiting call back. Of note, patient [...] KAN Ornelas 10/30/2023 [id number] * Lauri Jovel, COMMERCIAL SERVICE TECHNICIAN - 10/30/2023 12:13 AM ESTSummary: Pt refusing [...] require a change in interfaces. Lauri Jovel CUSTOMER DATA TECHNICIAN * Vanesa Rojas RN - 10/29/2023 4:15 PM EST OUTCOME EVALUATION NOTE: OUTCOME SUMMARY: A+Ox4, unchanged neuro exam. Tachycardic, 90-110. Weaned from HFNC to RA this morning. Up to chair for about 1.5 hours, upon returning to bed new non- blanchable redness noted on R ischium. Mepilex placed, fiberglass roving winder messaged via secure chat, new wound consult [...] Note Patient: Nighat Barrios : 1965 Room: [address] Admit date: 10/25/2023 Attending: Selma Brian [...] right upper extremity obscuring part of the bslpl-ej-dvis. Left chest wall subcutaneous port with tip at the superior cavoatrial junction. Similar-appearing left basilar opacity. No pneumothorax. No pleural effusion. Unchanged cardiomediastinal contours. Partially visualized cervical fusion hardware. Impression: Similar appearing left basilar opacity. Preliminary report signed by: Michael Freeamn MD at 10/29/2023 6:59 AM I have [...] who have questions please contact the health nurse healthcare manager that requested your imaging first. - CT [...] Procedure Component Value Units Date/Time Blood culture [[id number]] Collected: 10/25/23 1050 Lab Status: Preliminary result Specimen: Blood Updated: 10/28/23 1502 Blood Culture No growth at 3 days. Blood culture [[id number]] Collected: 10/25/23 1040 Lab Status: Preliminary result Specimen: Blood Updated: 10/28/23 1502 Blood Culture No growth at 3 days. Urine culture Cystoscopic Urine [[id number]] (Abnormal) (Susceptibility) Collected: 10/25/23 0913 Lab Status: [...] Sensitive Penicillin Sensitive Vancomycin Sensitive Urine culture [[id number]] (Abnormal) (Susceptibility) Collected: 10/24/232056 Lab Status: Final [...] using in critically ill patients. Blood culture [[id number]] (Abnormal) (Susceptibility) Collected: 10/24/232056 Lab Status: Preliminary result Specimen: Blood Updated: 10/28/23805 Blood Culture -- Pseudomonas aeruginosa detected by PCR Isolate saved. If future testing is required, contact the Microbiology Medical Doctor Md/Medical Director. Gram Stain Aerobic -- Growth detected in [...] regards to his living situation at the [facility], relationship with his care takers, and assistance [...] who have questions please contact the health nurse healthcare manager that requested your imaging first. SSMENT: received patient on high flow PLAN: wean [...] stage-4 [facility] [...] assist and inhaled mucolytic * Kota Street, MANAGER ECONOMIC - 10/28/2023 2:38 PM EST Speech Therapy Note Patient Profile: Nighat Barrios is a 58 y.o. male admitted on 10/25/2023 w/ past medical history quadriplegia s/p fall 10/26/2020, neurogenic bladder/bowel with SP tube and cystostomy who presented to [facility] last night with new agitation, found to have infected obstructing R urolithiasis and transferred for urgent urologic intervention. MANAGER ECONOMIC consulted for clinical swallow evaluation. Interval History: [...] Pt was seen today for a follow-up MANAGER ECONOMIC visit. Pt is tolerating a regular diet [...] and safe swallowing strategies. Plan: Therapy Frequency (MANAGER ECONOMIC Eval): other (see comments) (D/c from speech intervention.) Patient / family are in agreement with treatment plan. Total Minutes (Speech Language Pathology): 10 Thank you for this consult with this patient. Please feel free to page me with any questions or concerns. Kota Street MS, CCC-MANAGER ECONOMIC Pager: [phone] Speech-Language Pathology Inpatient Rehabilitation Department * Ester Edwards, PA - 10/28/2023 7:46 AM EST Images from the original note were not included. Urology Progress Note Patient: Nighat Barrios : 1965 Room: [address] Admit date: 10/25/2023 Attending: Selma Brian [...] who have questions please contact the health nurse healthcare manager that requested your imaging first. Micro: Microbiology Results (Last 30 days) Procedure Component Value Units Date/Time Blood culture [[id number]] Collected: 10/25/23 1050 Lab Status: Preliminary result Specimen: Blood Updated: 10/27/23 1501 Blood Culture No growth at 2 days. Blood culture [[id number]] Collected: 10/25/23 1040 Lab Status: Preliminary result Specimen: Blood Updated: 10/27/23 1501 Blood Culture No growth at 2 days. Urine culture Cystoscopic Urine [[id number]] (Abnormal) (Susceptibility) Collected: 10/25/23 0913 Lab Status: [...] Sensitive Penicillin Sensitive Vancomycin Sensitive Urine culture [[id number]] (Abnormal) (Susceptibility) Collected: 10/24/232056 Lab Status: Final [...] using in critically ill patients. Blood culture [[id number]] (Abnormal) (Susceptibility) Collected: 10/24/232056 Lab Status: Preliminary result Specimen: Blood Updated: 10/28/23805 Blood Culture -- Pseudomonas aeruginosa detected by PCR Isolate saved. If future testing is required, contact the Microbiology Medical Doctor Md/Medical Director. Gram Stain Aerobic -- Growth detected in [...] regards to [facility], relationship with his care takers, and assistance [...] AM EST Brief urology note: Notified by software intern early this morning the patient had increased [...] that he currently has DNR/DNI paperwork at [facility], however he did not have any [...] who have questions please contact the health nurse healthcare manager that requested your imaging first. Assessment: received patient on NC at 2 lpm had to increase to 6 lpm started high flow 40/60% started Duo and mucomyst the started cough assist to help with cough Plan: wean high flow wean able may have to go to BIPAP if needed do duo neb Q4 mucomyst BID cough assist PRN Ten Vera Mouser * Justus Gramajo MD - 10/28/2023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 ORDERABLE S Performing Organization Address [facility]/ZIP Co de Phone Number [facility] [place] [address] * (ABNORMAL) Basic Metabolic Panel (non-fasting) (11/09/2023 1:50 AM EST) Glucose 117 65 - 199 mg/dL [facility] Comment:Diabetes: >=200 mg/d L plus symptoms Blood Urea Nitrogen 11 10 - 20 mg/dL [facility] Creatinine 0.70(L) 0.80 - 1.50 mg/dL [facility] Sodium 144 135 - 145 mmol/L [facility] Potassium 3.4(L) 3.5 - 5.0 mmol/L [facility] Comment: Please note: ??Patients with WBC >100,000 may have falsely elevated Potassium levels. ??For accurate Potassium quantification in these patients send serum separator tube (gold top) for subsequent determinations. ??Contact the Clinical Chemistry Laboratory if there are any questions. Chloride 110(H) 98 - 107 mmol/L [facility] Carbon Dioxide 24 22 - 31 mmol/L [facility] Anion Gap 10 5 - 15 mmol/L [facility] Calcium 8.6 8.5 - 10.5 mg/dL [facility] Est Glomerular Filtration Rate 108 >=60 mL/min/1. 73 m?? [facility] Comment: This patient's estimated GFR [...] MD CHEMISTRY ORDERABL ES Performing Organization Address City/[facility]/ZIP Co de Phone Number [facility] [place] [address] * Phosphorus (11/09/2023 1:50 AM EST) Pathologist [facility] Phosphorus 3.1 2.5 - 4.5 mg/dL [facility] Blood 11/09/2023 1:50 AM EST 11/09/2023 2:00 AM EST Narrative Resulting Agency Comment Spec In Lab Selma Brian MD CHEMISTRY ORDERABL ES Performing Organization Address [facility] Co de Phone Number [facility] [place] [address] * Magnesium (11/09/2023 1:50 AM EST) [facility] Magnesium 0.73 0.69 - 1.07 mmol/L [facility] Blood 11/09/2023 1:50 AM EST 11/09/2023 2:00 AM EST Narrative Resulting Agency Comment Spec In Lab Selma Brian MD CHEMISTRY ORDERABL ES Performing Organization Address [facility] de Phone Number [facility] [place] [address] * Differential, Automated (11/08/2023 4:20 PM EST) [facility] Neutrophil % 67.6 % [facility] Neutrophil Absolute 4.79 1.70 - 6.10 x10(3)/[facility] Lymph % 19.4 % [facility] Lymphocytes Abs 1.4 0.9 - 3.2 x10(3)/[facility] Monocyte % 9.3 % [facility] Monocyte Abs 0.7 0.3 - 0.9 x10(3)/[facility] Eos % 2.7 % [facility] Eosinophils Abs 0.2 0.0 - 0.4 x10(3)/[facility] Basophil % 0.6 % [facility] Baso Absolute 0.0 0.0 - 0.1 x10(3)/[facility] Immature Gran % 0.40 % [facility] Comment: Immature granulocytes(IG's)percentage and absolute count will include metamyelocytes, myelocytes, and promyelocytes. Blood smears from CBCs yielding IG's will be scanned manually for concordance. If this scan disagrees with the automated IG or if promyelocytes are noted, a manual differential will be performed. Immature Gran Absolute 0.03 0.00 - 0.04 x10(3)/mcL [facility] Blood 11/08/2023 4:20 PM EST 11/08/2023 4:25 PM EST Narrative Resulting Agency Comment Spec In Lab Monty OMER HEMATOLOGY ORDERABLE S [facility] [place] [address] * (ABNORMAL) Hemogram (11/08/2023 4:20 PM EST) White Blood Cell 7.1 4.0 - 9.5 x10(3)/mc L [facility] Red Blood Cell 3.19(L) 4.58 - 5.54 x10(6)/mc L [facility] Hemoglobin 9.3(L) 13.7 - 16.5 g/dL [facility] Hematocrit 28.9(L) 40.5 - 48.5 % [facility] Mean Cell Volume 90.6 82.9 - 93.1 fL [facility] Mean Cell Hemoglobin 29.2 27.5 - 32.1 pg [facility] Mean Cell Hemoglobin Concentration 32.2 32.0 - 35.7 g/dL [facility] Platelet 439(H) 145 - 357 x10(3)/mc L [facility] RDW Standard Deviation 45.9(H) 36.0 - 45.0 fL [facility] RDW coefficient of variation 14.1(H) 11.4 - 13.8 % [facility] Mean Platelet Volume 9.7 7.6 - 12.9 fL [facility] NRBC% auto 0.0 % [facility] NRBC Absolute 0.000 0.000 - 0.000 x10(3)/mc L [facility] Blood 11/08/2023 4:20 PM EST 11/08/2023 4:25 PM EST Narrative Resulting Agency Comment Spec In Lab Monty OMER HEMATOLOGY ORDERABLE S [facility] [place] [address] * (ABNORMAL) Basic Metabolic Panel (non-fasting) (11/08/2023 4:20 PM EST) Glucose 92 65 - 199 mg/dL [facility] Comment:Diabetes: >=200 mg/d L plus symptoms Blood Urea Nitrogen 9(L) 10 - 20 mg/dL [facility] Creatinine 0.70(L) 0.80 - 1.50 mg/dL [facility] Sodium 144 135 - 145 mmol/L [facility] Potassium 3.9 3.5 - 5.0 mmol/L [facility] Comment: Please note: ??Patients with WBC >100,000 may have falsely elevated Potassium levels. ??For accurate Potassium quantification in these patients send serum separator tube (gold top) for subsequent determinations. ??Contact the Clinical Chemistry Laboratory if there are any questions. Chloride 109(H) 98 - 107 mmol/L [facility] Carbon Dioxide 25 22 - 31 mmol/L [facility] Anion Gap 10 5 - 15 mmol/L [facility] Calcium 8.7 8.5 - 10.5 mg/dL [facility] Est Glomerular Filtration Rate 108 >=60 mL/min/1. 73 m?? [facility] Comment: This patient's estimated GFR [...] MD CHEMISTRY ORDERABL ES Performing Organization Address [facility] Co de Phone Number [facility] [place] [address] * Phosphorus (11/08/2023 4:20 PM EST) Phosphorus 3.0 2.5 - 4.5 mg/dL [facility] Blood 11/08/2023 4:20 PM EST 11/08/2023 4:25 PM EST Narrative Resulting Agency Comment Spec In Lab Selma Brian MD CHEMISTRY ORDERABL ES Performing Organization Address [facility] Co de Phone Number [facility] [place] [address] * Magnesium (11/08/2023 4:20 PM EST) Magnesium 0.71 0.69 - 1.07 mmol/L [facility] Blood 11/08/2023 4:20 PM EST 11/08/2023 4:25 PM EST Narrative Resulting Agency Comment Spec In Lab Selma Brian MD CHEMISTRY ORDERABL ES Performing Organization Address [facility] Phone Number [facility] [place] [address] * (ABNORMAL) Differential, Automated (11/07/2023 6:33 AM EST) Neutrophil % 70.2 % [facility] Neutrophil Absolute 4.31 1.70 - 6.10 x10(3)/mc L [facility] Lymph % 18.2 % [facility] Lymphocytes Abs 1.1 0.9 - 3.2 x10(3)/mc L [facility] Monocyte % 7.5 % [facility] Monocyte Abs 0.5 0.3 - 0.9 x10(3)/mc L [facility] Eos % 2.8 % [facility] Eosinophils Abs 0.2 0.0 - 0.4 x10(3)/mc L [facility] Basophil % 0.5 % [facility] Baso Absolute 0.0 0.0 - 0.1 x10(3)/mc L [facility] Immature Gran % 0.80 % [facility] Comment: Immature granulocytes(IG's)percentage and absolute count will include metamyelocytes, myelocytes, and promyelocytes. Blood smears from CBCs yielding IG's will be scanned manually for concordance. If this scan disagrees with the automated IG or if promyelocytes are noted, a manual differential will be performed. Immature Gran Absolute 0.05(H) 0.00 - 0.04 x10(3)/mc L [facility] Blood 11/07/2023 6:33 AM EST 11/07/2023 6:50 AM EST Narrative Resulting Agency Comment Spec In Lab Monty OMER HEMATOLOGY ORDERABLE S Performing Organization Address City/State/[facility] Co de Phone Number [facility] [place] [address] * (ABNORMAL) Hemogram (11/07/2023 6:33 AM EST) White Blood Cell 6.1 4.0 - 9.5 x10(3)/mc L [facility] Red Blood Cell 2.80(L) 4.58 - 5.54 x10(6)/mc L [facility] Hemoglobin 8.8(L) 13.7 - 16.5 g/dL [facility] Hematocrit 26.6(L) 40.5 - 48.5 % [facility] Mean Cell Volume 95.0(H) 82.9 - 93.1 fL [facility] Mean Cell Hemoglobin 31.4 27.5 - 32.1 pg [facility] Mean Cell Hemoglobin Concentration 33.1 32.0 - 35.7 g/dL [facility] Platelet 433(H) 145 - 357 x10(3)/mc L [facility] RDW Standard Deviation 46.6(H) 36.0 - 45.0 fL [facility] RDW coefficient of variation 13.9(H) 11.4 - 13.8 % [facility] Mean Platelet Volume 9.8 7.6 - 12.9 fL [facility] NRBC% auto 0.0 % [facility] NRBC Absolute 0.000 0.000 - 0.000 x10(3)/mc L [facility] Blood 11/07/2023 6:33 AM EST 11/07/2023 6:50 AM EST Narrative Resulting Agency Comment Spec In Lab Monty OMER HEMATOLOGY ORDERABLE S [facility] [place] [address] * (ABNORMAL) Basic Metabolic Panel (non-fasting) (11/07/2023 6:33 AM EST) Glucose 89 65 - 199 mg/dL [facility] Comment:Diabetes: >=200 mg/d L plus symptoms Blood Urea Nitrogen 7(L) 10 - 20 mg/dL [facility] Creatinine 0.57(L) 0.80 - 1.50 mg/dL [facility] Sodium 143 135 - 145 mmol/L [facility] Potassium 3.6 3.5 - 5.0 mmol/L [facility] Comment: Please note: ??Patients with WBC >100,000 may have falsely elevated Potassium levels. ??For accurate Potassium quantification in these patients send serum separator tube (gold top) for subsequent determinations. ??Contact the Clinical Chemistry Laboratory if there are any questions. Chloride 108(H) 98 - 107 mmol/L [facility] Carbon Dioxide 25 22 - 31 mmol/L [facility] Anion Gap 10 5 - 15 mmol/L [facility] Calcium 9.0 8.5 - 10.5 mg/dL [facility] Est Glomerular Filtration Rate 115 >=60 mL/min/1. 73 m?? [facility] Comment: This patient's estimated GFR [...] MD CHEMISTRY ORDERABL ES Performing Organization Address [facility] Phone Number [facility] [place] [address] * Phosphorus (11/07/2023 6:33 AM EST) Phosphorus 3.3 2.5 - 4.5 mg/dL [facility] Blood 11/07/2023 6:33 AM EST 11/07/2023 6:50 AM EST Narrative Resulting Agency Comment Spec In Lab Selma Brian MD CHEMISTRY ORDERABL ES Performing Organization Address [facility] Phone Number [facility] [place] [address] * Magnesium (11/07/2023 6:33 AM EST) Magnesium 0.75 0.69 - 1.07 mmol/L [facility] Blood 11/07/2023 6:33 AM EST 11/07/2023 6:50 AM EST Narrative Resulting Agency Comment Spec In Lab Selma Brian MD CHEMISTRY ORDERABL ES Performing Organization Address [facility] Phone Number [facility] [place] [address] * (ABNORMAL) Differential, Automated (11/06/2023 1:00 AM EST) Neutrophil % 77.6 % [facility] Neutrophil Absolute 6.21(H) 1.70 - 6.10 x10(3)/mc L [facility] Lymph % 13.9 % [facility] Lymphocytes Abs 1.1 0.9 - 3.2 x10(3)/mc L [facility] Monocyte % 6.6 % [facility] Monocyte Abs 0.5 0.3 - 0.9 x10(3)/mc L [facility] Eos % 1.2 % [facility] Eosinophils Abs 0.1 0.0 - 0.4 x10(3)/mc L [facility] Basophil % 0.2 % [facility] Baso Absolute 0.0 0.0 - 0.1 x10(3)/mc L [facility] Immature Gran % 0.50 % [facility] Comment: Immature granulocytes(IG's)percentage and absolute count will include metamyelocytes, myelocytes, and promyelocytes. Blood smears from CBCs yielding IG's will be scanned manually for concordance. If this scan disagrees with the automated IG or if promyelocytes are noted, a manual differential will be performed. Immature Gran Absolute 0.04 0.00 - 0.04 x10(3)/ L [facility] Blood 11/06/2023 1:00 AM EST 11/06/2023 1:20 AM EST Narrative Resulting Agency Comment Spec In Lab Monty OMER HEMATOLOGY ORDERABLE S Performing Organization Address City/State/[facility] Co de Phone Number [facility] [place] [address] * (ABNORMAL) Hemogram (11/06/2023 1:00 AM EST) White Blood Cell 8.0 4.0 - 9.5 x10(3)/mc L [facility] Red Blood Cell 2.56(L) 4.58 - 5.54 x10(6)/mc L [facility] Hemoglobin 8.2(L) 13.7 - 16.5 g/dL [facility] Hematocrit 24.1(L) 40.5 - 48.5 % [facility] Mean Cell Volume 94.1(H) 82.9 - 93.1 fL [facility] Mean Cell Hemoglobin 32.0 27.5 - 32.1 pg [facility] Mean Cell Hemoglobin Concentration 34.0 32.0 - 35.7 g/dL [facility] Platelet 408(H) 145 - 357 x10(3)/mc L [facility] RDW Standard Deviation 45.9(H) 36.0 - 45.0 fL [facility] RDW coefficient of variation 14.0(H) 11.4 - 13.8 % [facility] Mean Platelet Volume 10.0 7.6 - 12.9 fL [facility] NRBC% auto 0.0 % [facility] NRBC Absolute 0.000 0.000 - 0.000 x10(3)/mc L [facility] Blood 11/06/2023 1:00 AM EST 11/06/2023 1:20 AM EST Narrative Resulting Agency Comment Spec In Lab Monty OMER HEMATOLOGY ORDERABLE S [facility] [place] [address] * (ABNORMAL) Basic Metabolic Panel (non-fasting) (11/06/2023 1:00 AM EST) Glucose 132 65 - 199 mg/dL [facility] Comment: Result rechecked - HT Diabetes: >=200 mg/dL plus symptoms Blood Urea Nitrogen 6(L) 10 - 20 mg/dL [facility] Comment:Result rechecked - H T Creatinine 0.63(L) 0.80 - 1.50 mg/dL [facility] Comment:Result rechecked - H T Sodium 143 135 - 145 mmol/L [facility] Comment:Result rechecked - H T Potassium 3.6 3.5 - 5.0 mmol/L [facility] Comment: Result rechecked - HT Please note: ??Patients with WBC >100,000 may have falsely elevated Potassium levels. ??For accurate Potassium quantification in these patients send serum separator tube (gold top) for subsequent determinations. ??Contact the Clinical Chemistry Laboratory if there are any questions. Chloride 106 98 - 107 mmol/L [facility] Comment:Result rechecked - H T Carbon Dioxide 27 22 - 31 mmol/L [facility] Comment:Result rechecked - H T Anion Gap 10 5 - 15 mmol/L [facility] Calcium 8.8 8.5 - 10.5 mg/dL [facility] Comment:Result rechecked - H T Est Glomerular Filtration Rate 112 >=60 mL/min/1. 73 m?? [facility] Comment: This patient's estimated GFR [...] MD CHEMISTRY ORDERABL ES Performing Organization Address [facility] Co de Phone Number [facility] [place] [address] * Phosphorus (11/06/2023 1:00 AM EST) Phosphorus 3.6 2.5 - 4.5 mg/dL [facility] Comment:Result rechecked - H T Blood 11/06/2023 1:00 AM EST 11/06/2023 1:20 AM EST Narrative Resulting Agency Comment Spec In Lab Selma Brian MD CHEMISTRY ORDERABL ES Performing Organization Address [facility] Co de Phone Number [facility] [place] [address] * Magnesium (11/06/2023 1:00 AM EST) Magnesium 0.81 0.69 - 1.07 mmol/L [facility] Comment:Result rechecked - H T Blood 11/06/2023 1:00 AM EST 11/06/2023 1:20 AM EST Narrative Resulting Agency Comment Spec In Lab Selma Brian MD CHEMISTRY ORDERABL ES Performing Organization Address [facility] Co de Phone Number [facility] [place] [address] * (ABNORMAL) Troponin (11/05/2023 7:40 AM EST) Troponin-T, High Sensitivity 63(H) <=22 ng/L [facility] Comment: This patient's troponin T concentration [...] troponin value can be found in the [facility] Laboratory Test Catalog Troponin - [facility] Laboratory Test Catalog Reference: Fourth Uneeda Definition of Myocardial Infarction. Journal of the [place] [employer] 2018;72:5299-9880 Blood 11/05/2023 7:40 AM EST 11/05/2023 7:45 AM EST Narrative Resulting Agency Comment Spec In Lab Yessi Lopes MD CHEMISTRY ORDER LORNA [facility] [place] [address] * (ABNORMAL) Differential, Automated (11/05/2023 4:17 AM EST) Neutrophil % 74.6 % [facility] Neutrophil Absolute 6.39(H) 1.70 - 6.10 x10(3)/mc L [facility] Lymph % 14.7 % [facility] Lymphocytes Abs 1.3 0.9 - 3.2 x10(3)/mc L [facility] Monocyte % 6.8 % [facility] Monocyte Abs 0.6 0.3 - 0.9 x10(3)/mc L [facility] Eos % 2.7 % [facility] Eosinophils Abs 0.2 0.0 - 0.4 x10(3)/mc L [facility] Basophil % 0.4 % [facility] Baso Absolute 0.0 0.0 - 0.1 x10(3)/mc L [facility] Immature Gran % 0.80 % [facility] Comment: Immature granulocytes(IG's)percentage and absolute count will include metamyelocytes, myelocytes, and promyelocytes. Blood smears from CBCs yielding IG's will be scanned manually for concordance. If this scan disagrees with the automated IG or if promyelocytes are noted, a manual differential will be performed. Immature Gran Absolute 0.07(H) 0.00 - 0.04 x10(3)/ L [facility] Blood 11/05/2023 4:17 AM EST 11/05/2023 4:38 AM EST Narrative Resulting Agency Comment Spec In Lab Monty OMER HEMATOLOGY ORDERABLE S [facility] [place] [address] * (ABNORMAL) Hemogram (11/05/2023 4:17 AM EST) White Blood Cell 8.6 4.0 - 9.5 x10(3)/mc L [facility] Red Blood Cell 2.78(L) 4.58 - 5.54 x10(6)/ L [facility] Hemoglobin 8.6(L) 13.7 - 16.5 g/dL [facility] Hematocrit 25.7(L) 40.5 - 48.5 % [facility] Mean Cell Volume 92.4 82.9 - 93.1 fL [facility] Mean Cell Hemoglobin 30.9 27.5 - 32.1 pg [facility] Mean Cell Hemoglobin Concentration 33.5 32.0 - 35.7 g/dL [facility] Platelet 429(H) 145 - 357 x10(3)/mc L [facility] RDW Standard Deviation 45.7(H) 36.0 - 45.0 fL [facility] RDW coefficient of variation 13.8 11.4 - 13.8 % [facility] Mean Platelet Volume 10.3 7.6 - 12.9 fL [facility] NRBC% auto 0.0 % [facility] NRBC Absolute 0.000 0.000 - 0.000 x10(3)/mc L [facility] Blood 11/05/2023 4:17 AM EST 11/05/2023 4:38 AM EST Narrative Resulting Agency Comment Spec In Lab Monty OMER HEMATOLOGY ORDERABLE S [facility] [place] [address] * (ABNORMAL) Troponin (11/05/2023 4:17 AM EST) Troponin-T, High Sensitivity 69(H) <=22 ng/L [facility] Comment: This patient's troponin T concentration [...] troponin value can be found in the [facility] Laboratory Test Catalog Troponin - [facility] Laboratory Test Catalog Reference: Fourth Uneeda Definition of Myocardial Infarction. Journal of the [place] [employer] 2018;72:9385-7978 Blood 11/05/2023 4:17 AM EST 11/05/2023 4:38 AM EST Narrative Resulting Agency Comment Spec In Lab Yessi Lopes MD CHEMISTRY ORDER LORNA [facility] [place] [address] * (ABNORMAL) Basic Metabolic Panel (non-fasting) (11/05/2023 4:17 AM EST) Glucose 126 65 - 199 mg/dL [facility] Comment:Diabetes: >=200 mg/d L plus symptoms Blood Urea Nitrogen 8(L) 10 - 20 mg/dL [facility] Creatinine 0.57(L) 0.80 - 1.50 mg/dL [facility] Sodium 141 135 - 145 mmol/L [facility] Potassium 3.5 3.5 - 5.0 mmol/L [facility] Comment: Please note: ??Patients with WBC >100,000 may have falsely elevated Potassium levels. ??For accurate Potassium quantification in these patients send serum separator tube (gold top) for subsequent determinations. ??Contact the Clinical Chemistry Laboratory if there are any questions. Chloride 105 98 - 107 mmol/L [facility] Carbon Dioxide 27 22 - 31 mmol/L [facility] Anion Gap 9 5 - 15 mmol/L [facility] Calcium 8.6 8.5 - 10.5 mg/dL [facility] Est Glomerular Filtration Rate 115 >=60 mL/min/1. 73 m?? [facility] Comment: This patient's estimated GFR [...] MD CHEMISTRY ORDERABL ES Performing Organization Address [facility] Co de Phone Number [facility] [place] [address] * Phosphorus (11/05/2023 4:17 AM EST) Phosphorus 2.9 2.5 - 4.5 mg/dL [facility] Blood 11/05/2023 4:17 AM EST 11/05/2023 4:38 AM EST Narrative Resulting Agency Comment Spec In Lab Selma Brian MD CHEMISTRY ORDERABL ES Performing Organization Address [facility] Co de Phone Number [facility] [place] [address] * Magnesium (11/05/2023 4:17 AM EST) Magnesium 0.90 0.69 - 1.07 mmol/L [facility] Blood 11/05/2023 4:17 AM EST 11/05/2023 4:38 AM EST Narrative Resulting Agency Comment Spec In Lab Selma Brian MD CHEMISTRY ORDERABL ES Performing Organization Address [facility] de Phone Number [facility] [place] [address] * TSH [place] (11/05/2023 4:17 AM EST) Thyroid Stimulating Hormone 2.87 0.27 - 4.20 mcIU/mL [facility] Comment: Reference Interval (mcIU/mL): Females: ??First Trimester: 0.23-3.88 ??Second Trimester: 0.22-3.90 ??Third Trimester: 0.44-4.66 Blood 11/05/2023 4:17 AM EST 11/05/2023 4:38 AM EST Narrative Resulting Agency Comment Spec In Lab Yessi Lopes MD CHEMISTRY ORDER LORNA Performing Organization Address City/[facility] Co de Phone Number [facility] [place] [address] * (ABNORMAL) Troponin (11/04/2023 11:50 PM EST) Troponin-T, High Sensitivity 72(H) <=22 ng/L [facility] Comment: This patient's troponin T concentration [...] troponin value can be found in the [facility] Laboratory Test Catalog Troponin - [facility] Laboratory Test Catalog Reference: Fourth Uneeda Definition of Myocardial Infarction. Journal of the [place] [employer] 2018;72:6398-2749 Blood 11/04/2023 11:5 0 PM EST 11/04/2023 11:54 PM EST Narrative Resulting Agency Comment Spec In Lab Yessi Lopes MD CHEMISTRY ORDER LORNA [facility] [place] [address] * XR Chest One View (11/04/2023 6:55 [...] who have questions please contact the health nurse healthcare manager that requested your imaging first. ? Narrative [...] patients who have questions please contactthe health nurse healthcare manager that requested your imaging first. Yessi Lopes MD IMG DX ORDERABL ES * (ABNORMAL) BLOOD GAS 2 VENOUS (11/04/2023 6:42 PM EST) pH, Venous 7.42 7.32 - 7.42 [facility] PCO2, Venous 40(L) 41 - 51 mmHg [facility] PO2, Venous 61(H) 25 - 40 mmHg [facility] Bicarbonate, Venous 25.7 mmol/L [facility] Base Excess, Venous 1.3 mmol/L [facility] Hgb Blood Gas 10.1(L) 13.7 - 16.5 g/dL [facility] Oxyhemoglobin, Venous 90.4 % [facility] Carboxyhemoglob in, Venous 0.2 % [facility] Comment: Nonsmokers: 0.5-1.5% COHB Smokers: Variable, but usually less than 10% Toxic: 20-30% COHB Lethal: Greater than 60% COHB Methemoglobin, Venous 0.4 <=1.5 % [facility] Na Whole Blood 138 135 - 145 mmol/L [facility] K Whole Blood 3.6 3.5 - 5.0 mmol/L [facility] Comment: Please note: Patients with WBC >100,000 may have falsely elevated Potassium levels. Contact the Clinical Chemistry Laboratory if there are any questions. ICa Whole Blood 1.20 1.15 - 1.33 mmol/L [facility] Comment: Note: ??Total bilirubin higher than 20 mg/dL may lead to falsely low ionized calcium. CL Whole Blood 105 98 - 107 mmol/L [facility] Gluc Whole Bld 116 65 - 199 mg/dL [facility] Comment:Diabetes: >=200 mg/d L plus symptoms Lactate WB 1.3 0.5 - 2.2 mmol/L [facility] Flow, Drake 6.0 LPM [facility] Blood Gas Source Venous [facility] Blood 11/04/2023 6:42 PM EST 11/04/2023 6:42 PM EST Yessi Lopes MD POINT OF CARE T EST ORDERABLES [facility] [place] [address] * (ABNORMAL) Troponin (11/04/2023 6:30 PM EST) Troponin-T, High Sensitivity 60(H) <=22 ng/L [facility] Comment: This patient's troponin T concentration [...] troponin value can be found in the [facility] Laboratory Test Catalog Troponin - [facility] Test Catalog Reference: Fourth Uneeda Definition of Myocardial Infarction. Journal of the [place] [employer] 2018;72:[id number] Blood 11/04/2023 6:30 PM EST 11/04/2023 7:06 PM EST Narrative Resulting Agency Comment Spec In Lab Yessi Lopes MD CHEMISTRY ORDER LORNA Performing Organization Address City/[facility]/Z[place] [address] * (ABNORMAL) Differential, Automated (11/04/2023 6:30 PM EST) Neutrophil % 81.4 % [facility] Neutrophil Absolute 8.48(H) 1.70 - 6.10 x10(3)/mc L [facility] Lymph % 11.0 % [facility] Lymphocytes Abs 1.1 0.9 - 3.2 x10(3)/mc L [facility] Monocyte % 5.1 % [facility] Monocyte Abs 0.5 0.3 - 0.9 x10(3)/mc L [facility] Eos % 2.0 % [facility] Eosinophils Abs 0.2 0.0 - 0.4 x10(3)/mc L [facility] Basophil % 0.2 % [facility] Baso Absolute 0.0 0.0 - 0.1 x10(3)/mc L [facility] Immature Gran % 0.30 % [facility] Comment: Immature granulocytes(IG's)percentage and absolute count will include metamyelocytes, myelocytes, and promyelocytes. Blood smears from CBCs yielding IG's will be scanned manually for concordance. If this scan disagrees with the automated IG or if promyelocytes are noted, a manual differential will be performed. Immature Gran Absolute 0.03 0.00 - 0.04 x10(3)/mc L [facility] Blood 11/04/2023 6:30 PM EST 11/04/2023 6:36 PM EST Narrative Resulting Agency Comment Spec In Lab Jose Machado MD HEMATOLOGY ORDER LORNA Performing Organization Address City/[facility]/ZIP Co de Phone Number [facility] [place] [address] * (ABNORMAL) Hemogram (11/04/2023 6:30 PM EST) White Blood Cell 10.4(H) 4.0 - 9.5 x10(3)/mc L [facility] Red Blood Cell 2.93(L) 4.58 - 5.54 x10(6)/mc L [facility] Hemoglobin 8.8(L) 13.7 - 16.5 g/dL [facility] Hematocrit 26.7(L) 40.5 - 48.5 % [facility] Mean Cell Volume 91.1 82.9 - 93.1 fL [facility] Mean Cell Hemoglobin 30.0 27.5 - 32.1 pg [facility] Mean Cell Hemoglobin Concentration 33.0 32.0 - 35.7 g/dL [facility] Platelet 393(H) 145 - 357 x10(3)/mc L [facility] RDW Standard Deviation 44.7 36.0 - 45.0 fL [facility] RDW coefficient of variation 13.6 11.4 - 13.8 % [facility] Mean Platelet Volume 10.0 7.6 - 12.9 fL [facility] NRBC% auto 0.0 % [facility] NRBC Absolute 0.000 0.000 - 0.000 x10(3)/mc L [facility] Blood 11/04/2023 6:30 PM EST 11/04/2023 6:36 PM EST Narrative Resulting Agency Comment Spec In Lab Jose Machado MD HEMATOLOGY ORDER LORNA [facility] [place] [address] * Lactate, whole blood, [place] [place] [place] (11/04/2023 6:30 PM EST) Lactate WB 1.4 0.5 - 2.2 mmol/L [facility] Blood 11/04/2023 6:30 PM EST 11/04/2023 6:36 PM EST Narrative Resulting Agency Comment Spec In Lab Yessi Lopes MD CHEMISTRY ORDER LORNA [facility] [place] [address] * Phosphorus (11/04/2023 6:30 PM EST) Phosphorus 2.6 2.5 - 4.5 mg/dL [facility] Blood 11/04/2023 6:30 PM EST 11/04/2023 6:36 PM EST Narrative Resulting Agency Comment Spec In Lab Yessi Lopes MD CHEMISTRY ORDER LORNA Performing Organization Address City/[facility]/ZIP Co de Phone Number [facility] [place] [address] * Magnesium (11/04/2023 6:30 PM EST) Magnesium 0.76 0.69 - 1.07 mmol/L [facility] Blood 11/04/2023 6:30 PM EST 11/04/2023 6:36 PM EST Narrative Resulting Agency Comment Spec In Lab Yessi Lopes MD CHEMISTRY ORDER LORNA Performing Organization Address [facility] Co de Phone Number [facility] [place] [address] * (ABNORMAL) Basic Metabolic Panel (non-fasting) (11/04/2023 6:30 PM EST) Glucose 108 65 - 199 mg/dL [facility] Comment:Diabetes: >=200 mg/d L plus symptoms Blood Urea Nitrogen 8(L) 10 - 20 mg/dL [facility] Creatinine 0.59(L) 0.80 - 1.50 mg/dL [facility] Sodium 142 135 - 145 mmol/L [facility] Potassium 3.9 3.5 - 5.0 mmol/L [facility] Comment: Please note: ??Patients with WBC >100,000 may have falsely elevated Potassium levels. ??For accurate Potassium quantification in these patients send serum separator tube (gold top) for subsequent determinations. ??Contact the Clinical Chemistry Laboratory if there are any questions. Chloride 107 98 - 107 mmol/L [facility] Carbon Dioxide 23 22 - 31 mmol/L [facility] Anion Gap 12 5 - 15 mmol/L [facility] Calcium 8.7 8.5 - 10.5 mg/dL [facility] Est Glomerular Filtration Rate 114 >=60 mL/min/1. 73 m?? [facility] Comment: This patient's estimated GFR [...] Lab Yessi Lopes MD CHEMISTRY ORDER LORNA [facility] [place] [address] * EKG 12 Lead (11/04/2023 6:20 PM EST) Ventricular rate 77 BPM MUSE SYSTEM Atrial Rate 77 BPM MUSE SYSTEM P-R Interval 148 ms MUSE SYSTEM QRS Duration 94 ms MUSE SYSTEM Q-T Interval 418 ms MUSE SYSTEM QTC Calculated (Bezet) 473 ms MUSE SYSTEM Calculated P [place] 79 degrees MUSE SYSTEM Calculated R [place] 23 degrees MUSE SYSTEM Calculated T [place] 71 degrees MUSE SYSTEM INTERPRETATION Normal sinus rhythm Incomplete right bundle branch block Borderline ECG When compared with ECG of 01-NOV-2023 13:44, Non-specific change in ST segment in Anterior leads Nonspecific T wave abnormality no longer evident in Anterior leads Confirmed by MD Yumiko, Jeff Hopkins ([id number]) on 11/06/2023 3:01:32 PM MUSE SYSTEM 11/04/2023 6:20 PM EST 11/06/2023 3:01 PM EST Yessi Lopes MD ECG ORDERABLES [facility] SYSTEM * (ABNORMAL) Differential, Automated (11/04/2023 1:55 AM EST) Neutrophil % 73.5 % [facility] Neutrophil Absolute 7.14(H) 1.70 - 6.10 x10(3)/mc L [facility] Lymph % 16.8 % [facility] Lymphocytes Abs 1.6 0.9 - 3.2 x10(3)/mc L [facility] Monocyte % 6.8 % [facility] Monocyte Abs 0.7 0.3 - 0.9 x10(3)/[facility] Eos % 2.0 % [facility] Eosinophils Abs 0.2 0.0 - 0.4 x10(3)/[facility] Basophil % 0.1 % [facility] Baso Absolute 0.0 0.0 - 0.1 x10(3)/ L [facility] Immature Gran % 0.80 % [facility] Comment: Immature granulocytes(IG's)percentage and absolute count will include metamyelocytes, myelocytes, and promyelocytes. Blood smears from CBCs yielding IG's will be scanned manually for concordance. If this scan disagrees with the automated IG or if promyelocytes are noted, a manual differential will be performed. Immature Gran Absolute 0.08(H) 0.00 - 0.04 x10(3)/ L [facility] Blood 11/04/2023 1:55 AM EST 11/04/2023 2:01 AM EST Narrative Resulting Agency Comment Spec In Lab Monty OMER HEMATOLOGY ORDERABLE S [facility] [place] [address] * (ABNORMAL) Hemogram (11/04/2023 1:55 AM EST) White Blood Cell 9.7(H) 4.0 - 9.5 x10(3)/ L [facility] Red Blood Cell 2.91(L) 4.58 - 5.54 x10(6)/mc L [facility] Hemoglobin 8.7(L) 13.7 - 16.5 g/dL [facility] Hematocrit 26.3(L) 40.5 - 48.5 % [facility] Mean Cell Volume 90.4 82.9 - 93.1 fL [facility] Mean Cell Hemoglobin 29.9 27.5 - 32.1 pg [facility] Mean Cell Hemoglobin Concentration 33.1 32.0 - 35.7 g/dL [facility] Platelet 363(H) 145 - 357 x10(3)/mc L [facility] RDW Standard Deviation 45.6(H) 36.0 - 45.0 fL [facility] RDW coefficient of variation 13.8 11.4 - 13.8 % [facility] Mean Platelet Volume 9.9 7.6 - 12.9 fL [facility] NRBC% auto 0.0 % [facility] NRBC Absolute 0.000 0.000 - 0.000 x10(3)/mc L [facility] Blood 11/04/2023 1:55 AM EST 11/04/2023 2:01 AM EST Narrative Resulting Agency Comment Spec In Lab Monty OMER HEMATOLOGY ORDERABLE S [facility] [place] [address] * (ABNORMAL) Basic Metabolic Panel (non-fasting) (11/04/2023 1:55 AM EST) Glucose 98 65 - 199 mg/dL [facility] Comment:Diabetes: >=200 mg/d L plus symptoms Blood Urea Nitrogen 8(L) 10 - 20 mg/dL [facility] Creatinine 0.60(L) 0.80 - 1.50 mg/dL [facility] Sodium 143 135 - 145 mmol/L [facility] Potassium 3.7 3.5 - 5.0 mmol/L [facility] Comment: Please note: ??Patients with WBC >100,000 may have falsely elevated Potassium levels. ??For accurate Potassium quantification in these patients send serum separator tube (gold top) for subsequent determinations. ??Contact the Clinical Chemistry Laboratory if there are any questions. Chloride 107 98 - 107 mmol/L [facility] Carbon Dioxide 26 22 - 31 mmol/L [facility] Anion Gap 10 5 - 15 mmol/L [facility] Calcium 8.7 8.5 - 10.5 mg/dL [facility] Est Glomerular Filtration Rate 113 >=60 mL/min/1. 73 m?? [facility] Comment: This patient's estimated GFR [...] Narrative Resulting Agency Comment Spec In Lab Semla Brian MD CHEMISTRY ORDERABL ES Performing Organization Address City/[facility] Co de Phone Number [facility] [place] [address] * Phosphorus (11/04/2023 1:55 AM EST) Phosphorus 2.9 2.5 - 4.5 mg/dL [facility] Blood 11/04/2023 1:55 AM EST 11/04/2023 2:01 AM EST Narrative Resulting Agency Comment Spec In Lab Selma Brian MD CHEMISTRY ORDERABL ES Performing Organization Address City/[facility] Co de Phone Number [facility] [place] [address] * Magnesium (11/04/2023 1:55 AM EST) Magnesium 0.78 0.69 - 1.07 mmol/L [facility] Blood 11/04/2023 1:55 AM EST 11/04/2023 2:01 AM EST Narrative Resulting Agency Comment Spec In Lab Selma Brian MD CHEMISTRY ORDERABL ES Performing Organization Address City/[facility]/ZIP Co de Phone Number [facility] [place] [address] * (ABNORMAL) Differential, Automated (11/03/2023 1:15 AM EST) Neutrophil % 75.0 % [facility] Neutrophil Absolute 7.54(H) 1.70 - 6.10 x10(3)/mc L [facility] Lymph % 15.7 % [facility] Lymphocytes Abs 1.6 0.9 - 3.2 x10(3)/mc L [facility] Monocyte % 6.5 % [facility] Monocyte Abs 0.6 0.3 - 0.9 x10(3)/mc L [facility] Eos % 1.9 % [facility] Eosinophils Abs 0.2 0.0 - 0.4 x10(3)/mc L [facility] Basophil % 0.2 % [facility] Baso Absolute 0.0 0.0 - 0.1 x10(3)/mc L [facility] Immature Gran % 0.70 % [facility] Comment: Immature granulocytes(IG's)percentage and absolute count will include metamyelocytes, myelocytes, and promyelocytes. Blood smears from CBCs yielding IG's will be scanned manually for concordance. If this scan disagrees with the automated IG or if promyelocytes are noted, a manual differential will be performed. Immature Gran Absolute 0.07(H) 0.00 - 0.04 x10(3)/mc L [facility] Blood 11/03/2023 1:15 AM EST 11/03/2023 1:25 AM EST Narrative Resulting Agency Comment Spec In Lab Monty OMER HEMATOLOGY ORDERABLE S Performing Organization Address City/[facility]/ZIP Co de Phone Number [facility] [place] [address] * (ABNORMAL) Hemogram (11/03/2023 1:15 AM EST) White Blood Cell 10.0(H) 4.0 - 9.5 x10(3)/mc L [facility] Red Blood Cell 3.01(L) 4.58 - 5.54 x10(6)/mc L [facility] Hemoglobin 8.7(L) 13.7 - 16.5 g/dL [facility] Hematocrit 27.0(L) 40.5 - 48.5 % [facility] Mean Cell Volume 89.7 82.9 - 93.1 fL [facility] Mean Cell Hemoglobin 28.9 27.5 - 32.1 pg [facility] Mean Cell Hemoglobin Concentration 32.2 32.0 - 35.7 g/dL [facility] Platelet 331 145 - 357 x10(3)/mc L [facility] RDW Standard Deviation 45.6(H) 36.0 - 45.0 fL [facility] RDW coefficient of variation 13.9(H) 11.4 - 13.8 % [facility] Mean Platelet Volume 9.6 7.6 - 12.9 fL [facility] NRBC% auto 0.0 % [facility] NRBC Absolute 0.000 0.000 - 0.000 x10(3)/ L [facility] Blood 11/03/2023 1:15 AM EST 11/03/2023 1:25 AM EST Narrative Resulting Agency Comment Spec In Lab Mnoty OMER HEMATOLOGY ORDERABLE S Performing Organization Address City/State/[facility] Co de Phone Number [facility] [place] [address] * (ABNORMAL) Basic Metabolic Panel (non-fasting) (11/03/2023 1:15 AM EST) Glucose 105 65 - 199 mg/dL [facility] Comment:Diabetes: >=200 mg/d L plus symptoms Blood Urea Nitrogen 6(L) 10 - 20 mg/dL [facility] Creatinine 0.59(L) 0.80 - 1.50 mg/dL [facility] Sodium 140 135 - 145 mmol/L [facility] Potassium 3.8 3.5 - 5.0 mmol/L [facility] Comment: Please note: ??Patients with WBC >100,000 may have falsely elevated Potassium levels. ??For accurate Potassium quantification in these patients send serum separator tube (gold top) for subsequent determinations. ??Contact the Clinical Chemistry Laboratory if there are any questions. Chloride 104 98 - 107 mmol/L [facility] Carbon Dioxide 26 22 - 31 mmol/L [facility] Anion Gap 10 5 - 15 mmol/L [facility] Calcium 8.7 8.5 - 10.5 mg/dL [facility] Est Glomerular Filtration Rate 114 >=60 mL/min/1. 73 m?? [facility] Comment: This patient's estimated GFR [...] MD CHEMISTRY ORDERABL ES Performing Organization Address [facility] Co de Phone Number [facility] [place] [address] * Phosphorus (11/03/2023 1:15 AM EST) Phosphorus 2.9 2.5 - 4.5 mg/dL [facility] Blood 11/03/2023 1:15 AM EST 11/03/2023 1:25 AM EST Narrative Resulting Agency Comment Spec In Lab Selma Brian MD CHEMISTRY ORDERABL ES Performing Organization Address City/[facility]/ZIP Co de Phone Number [facility] [place] [address] * Magnesium (11/03/2023 1:15 AM EST) Magnesium 0.85 0.69 - 1.07 mmol/L [facility] Blood 11/03/2023 1:15 AM EST 11/03/2023 1:25 AM EST Narrative Resulting Agency Comment Spec In Lab Selma Brian MD CHEMISTRY ORDERABL ES [facility] [place] [address] * (ABNORMAL) Differential, Automated (11/02/2023 12:45 AM EST) Neutrophil % 79.7 % [facility] Neutrophil Absolute 8.12(H) 1.70 - 6.10 x10(3)/mc L [facility] Lymph % 12.6 % [facility] Lymphocytes Abs 1.3 0.9 - 3.2 x10(3)/mc L [facility] Monocyte % 5.8 % [facility] Monocyte Abs 0.6 0.3 - 0.9 x10(3)/mc L [facility] Eos % 1.1 % [facility] Eosinophils Abs 0.1 0.0 - 0.4 x10(3)/mc L [facility] Basophil % 0.2 % [facility] Baso Absolute 0.0 0.0 - 0.1 x10(3)/mc L [facility] Immature Gran % 0.60 % [facility] Comment: Immature granulocytes(IG's)percentage and absolute count will include metamyelocytes, myelocytes, and promyelocytes. Blood smears from CBCs yielding IG's will be scanned manually for concordance. If this scan disagrees with the automated IG or if promyelocytes are noted, a manual differential will be performed. Immature Gran Absolute 0.06(H) 0.00 - 0.04 x10(3)/mc L [facility] Blood 11/02/2023 12:4 5 AM EST 11/02/2023 12:50 AM EST Narrative Resulting Agency Comment Spec In Lab Monty OMER HEMATOLOGY ORDERABLE S [facility] [place] [address] * (ABNORMAL) Hemogram (11/02/2023 12:45 AM EST) White Blood Cell 10.2(H) 4.0 - 9.5 x10(3)/mc L [facility] Red Blood Cell 2.96(L) 4.58 - 5.54 x10(6)/mc L [facility] Hemoglobin 8.8(L) 13.7 - 16.5 g/dL [facility] Hematocrit 26.6(L) 40.5 - 48.5 % [facility] Mean Cell Volume 89.9 82.9 - 93.1 fL [facility] Mean Cell Hemoglobin 29.7 27.5 - 32.1 pg [facility] Mean Cell Hemoglobin Concentration 33.1 32.0 - 35.7 g/dL [facility] Platelet 316 145 - 357 x10(3)/mc L [facility] RDW Standard Deviation 46.0(H) 36.0 - 45.0 fL [facility] RDW coefficient of variation 13.9(H) 11.4 - 13.8 % [facility] Mean Platelet Volume 9.9 7.6 - 12.9 fL [facility] NRBC% auto 0.0 % [facility] NRBC Absolute 0.000 0.000 - 0.000 x10(3)/mc L [facility] Blood 11/02/2023 12:4 5 AM EST 11/02/2023 12:50 AM EST Narrative Resulting Agency Comment Spec In Lab Monty OMER HEMATOLOGY ORDERABLE S [facility] [place] [address] * (ABNORMAL) Basic Metabolic Panel (non-fasting) (11/02/2023 12:45 AM EST) Glucose 146 65 - 199 mg/dL [facility] Comment:Diabetes: >=200 mg/d L plus symptoms Blood Urea Nitrogen 7(L) 10 - 20 mg/dL [facility] Creatinine 0.67(L) 0.80 - 1.50 mg/dL [facility] Sodium 139 135 - 145 mmol/L [facility] Potassium 3.9 3.5 - 5.0 mmol/L [facility] Comment: Please note: ??Patients with WBC >100,000 may have falsely elevated Potassium levels. ??For accurate Potassium quantification in these patients send serum separator tube (gold top) for subsequent determinations. ??Contact the Clinical Chemistry Laboratory if there are any questions. Chloride 103 98 - 107 mmol/L [facility] Carbon Dioxide 27 22 - 31 mmol/L [facility] Anion Gap 9 5 - 15 mmol/L [facility] Calcium 8.2(L) 8.5 - 10.5 mg/dL [facility] Est Glomerular Filtration Rate 110 >=60 mL/min/1. 73 m?? [facility] Comment: This patient's estimated GFR [...] MD CHEMISTRY ORDERABL ES Performing Organization Address City/[facility] Co de Phone Number [facility] [place] [address] * (ABNORMAL) Phosphorus (11/02/2023 12:45 AM EST) Phosphorus 2.4(L) 2.5 - 4.5 mg/dL [facility] Blood 11/02/2023 12:4 5 AM EST 11/02/2023 12:50 AM EST Narrative Resulting Agency Comment Spec In Lab Selma Brian MD CHEMISTRY ORDERABL ES Performing Organization Address [facility] Co de Phone Number [facility] [place] [address] * Magnesium (11/02/2023 12:45 AM EST) Pathologist [facility] Magnesium 0.88 0.69 - 1.07 mmol/L [facility] Blood 11/02/2023 12:4 5 AM EST 11/02/2023 12:50 AM EST Narrative Resulting Agency Comment Spec In Lab Selma Brian MD CHEMISTRY ORDERABL ES Performing Organization Address [facility] de Phone Number [facility] [place] [address] * POCT Glucose (11/01/2023 7:51 PM EST) [facility] Glucose, POC 129 65 - 199 mg/dL [facility] Comment: Supplemental ranges: <140 mg/dL before meals <180 mg/dL all other times of the day Blood 11/01/2023 7:51 PM EST 11/01/2023 7:51 PM EST Yessi Lopes MD POINT OF CARE T EST ORDERABLES Performing Organization Address [facility] de Phone Number [facility] [place] [address] * Lactate, whole blood, [place] [place] (11/01/2023 4:09 PM EST) [facility] Lactate WB 0.8 0.5 - 2.2 mmol/L [facility] Blood 11/01/2023 4:09 PM EST 11/01/2023 4:15 PM EST Narrative Resulting Agency Comment Spec In Lab Yessi Lopes MD CHEMISTRY ORDER LORNA Performing Organization Address [facility] Co de Phone Number [facility] [place] [address] * (ABNORMAL) Troponin (11/01/2023 4:09 PM EST) [facility] Troponin-T, High Sensitivity 60(H) <=22 ng/L [facility] Comment: This patient's troponin T concentration [...] troponin value can be found in the [facility] Laboratory Test Catalog Troponin - [facility] Laboratory Test Catalog Reference: Fourth Uneeda Definition of Myocardial Infarction. Journal of the [place] [employer] 2018;72:3917-5682 Blood 11/01/2023 4:09 PM EST 11/01/2023 4:16 PM EST Narrative Resulting Agency Comment Spec In Lab Yessi Lopes MD CHEMISTRY ORDER LORNA Performing Organization Address [facility] Co de Phone Number [facility] [place] [address] * Blood culture (11/01/2023 2:30 PM EST) Blood Culture No growth at 5 days. [facility] Blood STRUCTURE OF LEFT FOOT / Unknown 11/01/2023 2:30 PM EST 11/01/2023 3:03 PM EST Comment:#2 Narrative Resulting Agency Comment Spec In Lab Yessi Lopes MD MICROBIOLOGY - BLOOD ORDERABLES Performing Organization Address [facility] Co de Phone Number [facility] [place] [address] * (ABNORMAL) Differential, Automated (11/01/2023 2:20 PM EST) Pathologist [facility] Neutrophil % 77.2 % [facility] Neutrophil Absolute 7.42(H) 1.70 - 6.10 x10(3)/mc L [facility] Lymph % 14.2 % [facility] Lymphocytes Abs 1.4 0.9 - 3.2 x10(3)/ L [facility] Monocyte % 5.7 % [facility] Monocyte Abs 0.6 0.3 - 0.9 x10(3)/mc L [facility] Eos % 2.2 % [facility] Eosinophils Abs 0.2 0.0 - 0.4 x10(3)/[facility] Basophil % 0.2 % [facility] Baso Absolute 0.0 0.0 - 0.1 x10(3)/ L [facility] Immature Gran % 0.50 % [facility] Comment: Immature granulocytes(IG's)percentage and absolute count will include metamyelocytes, myelocytes, and promyelocytes. Blood smears from CBCs yielding IG's will be scanned manually for concordance. If this scan disagrees with the automated IG or if promyelocytes are noted, a manual differential will be performed. Immature Gran Absolute 0.05(H) 0.00 - 0.04 x10(3)/ L [facility] Blood 11/01/2023 2:20 PM EST 11/01/2023 2:30 PM EST Narrative Resulting Agency Comment Spec In Lab Krystal Ortiz MD HEMATOLOGY ORDERAB LES [facility] [place] [address] * (ABNORMAL) Hemogram (11/01/2023 2:20 PM EST) Pathologist [facility] White Blood Cell 9.6(H) 4.0 - 9.5 x10(3)/ L [facility] Red Blood Cell 3.22(L) 4.58 - 5.54 x10(6)/mc L [facility] Hemoglobin 9.5(L) 13.7 - 16.5 g/dL [facility] Hematocrit 28.8(L) 40.5 - 48.5 % [facility] Mean Cell Volume 89.4 82.9 - 93.1 fL [facility] Mean Cell Hemoglobin 29.5 27.5 - 32.1 pg [facility] Mean Cell Hemoglobin Concentration 33.0 32.0 - 35.7 g/dL [facility] Platelet 281 145 - 357 x10(3)/mc L [facility] RDW Standard Deviation 45.7(H) 36.0 - 45.0 fL [facility] RDW coefficient of variation 14.0(H) 11.4 - 13.8 % [facility] Mean Platelet Volume 9.9 7.6 - 12.9 fL [facility] NRBC% auto 0.0 % [facility] NRBC Absolute 0.000 0.000 - 0.000 x10(3)/ L [facility] Blood 11/01/2023 2:20 PM EST 11/01/2023 2:30 PM EST Narrative Resulting Agency Comment Spec In Lab Krystal Ortiz MD HEMATOLOGY ORDERAB LES Performing Organization Address [facility] Co de Phone Number [facility] [place] [address] * Blood culture (11/01/2023 2:20 PM EST) Blood Culture No growth at 5 days. [facility] Blood STRUCTURE OF RIGHT FOOT / Unknown 11/01/2023 2:20 PM EST 11/01/2023 3:03 PM EST Comment:#1 Narrative Resulting Agency Comment Spec In Lab Yessi Lopes MD MICROBIOLOGY - BLOOD ORDERABLES Performing Organization Address [facility] Co de Phone Number [facility] [place] [address] * (ABNORMAL) Troponin (11/01/2023 2:20 PM EST) Troponin-T, High Sensitivity 67(H) <=22 ng/L [facility] Comment: This patient's troponin T concentration [...] troponin value can be found in the [facility] Laboratory Test Catalog Troponin - [facility] Laboratory Test Catalog Reference: Fourth Uneeda Definition of Myocardial Infarction. Journal of the [place] [employer] 2018;72:0741-8076 Blood 11/01/2023 2:20 PM EST 11/01/2023 2:30 PM EST Narrative Resulting Agency Comment Spec In Lab Yessi Lopes MD CHEMISTRY ORDER LORNA [facility] [place] [address] * Phosphorus (11/01/2023 2:20 PM EST) Phosphorus 2.7 2.5 - 4.5 mg/dL [facility] Blood 11/01/2023 2:20 PM EST 11/01/2023 2:30 PM EST Narrative Resulting Agency Comment Spec In Lab Yessi Lopes MD CHEMISTRY ORDER LORNA [facility] [place] [address] * Magnesium (11/01/2023 2:20 PM EST) Magnesium 0.75 0.69 - 1.07 mmol/L [facility] Blood 11/01/2023 2:20 PM EST 11/01/2023 2:30 PM EST Narrative Resulting Agency Comment Spec In Lab Yessi Lopes MD CHEMISTRY ORDER LORNA [facility] [place] [address] * (ABNORMAL) Basic Metabolic Panel (non-fasting) (11/01/2023 2:20 PM EST) Glucose 107 65 - 199 mg/dL [facility] Comment:Diabetes: >=200 mg/d L plus symptoms Blood Urea Nitrogen 8(L) 10 - 20 mg/dL [facility] Creatinine 0.62(L) 0.80 - 1.50 mg/dL [facility] Sodium 138 135 - 145 mmol/L [facility] Potassium 4.1 3.5 - 5.0 mmol/L [facility] Comment: Please note: ??Patients with WBC >100,000 may have falsely elevated Potassium levels. ??For accurate Potassium quantification in these patients send serum separator tube (gold top) for subsequent determinations. ??Contact the Clinical Chemistry Laboratory if there are any questions. Chloride 103 98 - 107 mmol/L [facility] Carbon Dioxide 27 22 - 31 mmol/L [facility] Anion Gap 8 5 - 15 mmol/L [facility] Calcium 8.1(L) 8.5 - 10.5 mg/dL [facility] Est Glomerular Filtration Rate 112 >=60 mL/min/1. 73 m?? [facility] Comment: This patient's estimated GFR [...] Lab Yessi Lopes MD CHEMISTRY ORDER LORNA [facility] [place] [address] * XR Chest One View (11/01/2023 1:55 [...] who have questions please contact the health nurse healthcare manager that requested your imaging first. ? Narrative 11/01/2023 2:05 PM EST EXAMINATION: XR [...] patients who have questions please contactthe health nurse healthcare manager that requested your imaging first. Yessi Lopes MD IMG DX ORDERABL ES * EKG 12 Lead (11/01/2023 1:44 PM EST) Pathologist [facility] Ventricular rate 91 BPM MUSE SYSTEM Atrial Rate 91 BPM MUSE SYSTEM P-R Interval 144 ms MUSE SYSTEM QRS Duration 92 ms MUSE SYSTEM Q-T Interval 374 ms MUSE SYSTEM QTC Calculated (Bezet) 460 ms MUSE SYSTEM Calculated P [place] 72 degrees MUSE SYSTEM Calculated R [place] -30 degrees MUSE SYSTEM Calculated T [place] 71 degrees MUSE SYSTEM INTERPRETATION Normal sinus [...] Differential, Automated (11/01/2023 12:28 AM EST) Pathologist [facility] Neutrophil % 71.2 % [facility] Neutrophil Absolute 5.85 1.70 - 6.10 x10(3)/mc L [facility] Lymph % 17.9 % [facility] Lymphocytes Abs 1.5 0.9 - 3.2 x10(3)/ L [facility] Monocyte % 7.1 % [facility] Monocyte Abs 0.6 0.3 - 0.9 x10(3)/[facility] Eos % 2.9 % [facility] Eosinophils Abs 0.2 0.0 - 0.4 x10(3)/ L [facility] Basophil % 0.2 % [facility] Baso Absolute 0.0 0.0 - 0.1 x10(3)/[facility] Immature Gran % 0.70 % [facility] Comment: Immature granulocytes(IG's)percentage and absolute count will include metamyelocytes, myelocytes, and promyelocytes. Blood smears from CBCs yielding IG's will be scanned manually for concordance. If this scan disagrees with the automated IG or if promyelocytes are noted, a manual differential will be performed. Immature Gran Absolute 0.06(H) 0.00 - 0.04 x10(3)/ L [facility] Blood 11/01/2023 12:2 8 AM EST 11/01/2023 12:44 AM EST Narrative Resulting Agency Comment Spec In Lab Monty OMER HEMATOLOGY ORDERABLE S Performing Organization Address City/State/[facility] Co de Phone Number [facility] [place] [address] * (ABNORMAL) Hemogram (11/01/2023 12:28 AM EST) White Blood Cell 8.2 4.0 - 9.5 x10(3)/ L [facility] Red Blood Cell 3.10(L) 4.58 - 5.54 x10(6)/mc L [facility] Hemoglobin 9.2(L) 13.7 - 16.5 g/dL [facility] Hematocrit 28.0(L) 40.5 - 48.5 % [facility] Mean Cell Volume 90.3 82.9 - 93.1 fL [facility] Mean Cell Hemoglobin 29.7 27.5 - 32.1 pg [facility] Mean Cell Hemoglobin Concentration 32.9 32.0 - 35.7 g/dL [facility] Platelet 267 145 - 357 x10(3)/mc L [facility] RDW Standard Deviation 47.4(H) 36.0 - 45.0 fL [facility] RDW coefficient of variation 14.3(H) 11.4 - 13.8 % [facility] Mean Platelet Volume 9.8 7.6 - 12.9 fL [facility] NRBC% auto 0.0 % [facility] NRBC Absolute 0.000 0.000 - 0.000 x10(3)/mc L [facility] Blood 11/01/2023 12:2 8 AM EST 11/01/2023 12:44 AM EST Narrative Resulting Agency Comment Spec In Lab Monty OMER HEMATOLOGY ORDERABLE S Performing Organization Address City/State/[facility] Co de Phone Number [facility] [place] [address] * (ABNORMAL) Basic Metabolic Panel (non-fasting) (11/01/2023 12:28 AM EST) Glucose 105 65 - 199 mg/dL [facility] Comment:Diabetes: >=200 mg/d L plus symptoms Blood Urea Nitrogen 9(L) 10 - 20 mg/dL [facility] Creatinine 0.67(L) 0.80 - 1.50 mg/dL [facility] Sodium 143 135 - 145 mmol/L [facility] Potassium 4.5 3.5 - 5.0 mmol/L [facility] Comment: Please note: ??Patients with WBC >100,000 may have falsely elevated Potassium levels. ??For accurate Potassium quantification in these patients send serum separator tube (gold top) for subsequent determinations. ??Contact the Clinical Chemistry Laboratory if there are any questions. Chloride 107 98 - 107 mmol/L [facility] Carbon Dioxide 30 22 - 31 mmol/L [facility] Anion Gap 6 5 - 15 mmol/L [facility] Calcium 8.2(L) 8.5 - 10.5 mg/dL [facility] Est Glomerular Filtration Rate 110 >=60 mL/min/1. 73 m?? [facility] Comment: This patient's estimated GFR [...] MD CHEMISTRY ORDERABL ES Performing Organization Address [facility] de Phone Number [facility] [place] [address] * Phosphorus (11/01/2023 12:28 AM EST) Phosphorus 3.6 2.5 - 4.5 mg/dL [facility] Blood 11/01/2023 12:2 8 AM EST 11/01/2023 12:44 AM EST Narrative Resulting Agency Comment Spec In Lab Selma Brian MD CHEMISTRY ORDERABL ES Performing Organization Address City/[facility] Co de Phone Number [facility] [place] [address] * Magnesium (11/01/2023 12:28 AM EST) Magnesium 0.86 0.69 - 1.07 mmol/L [facility] Blood 11/01/2023 12:2 8 AM EST 11/01/2023 12:44 AM EST Narrative Resulting Agency Comment Spec In Lab Selma Brian MD CHEMISTRY ORDERABL ES Performing Organization Address City/[facility] [place] [address] * XR Chest One View (10/31/2023 8:12 [...] who have questions please contact the health nurse healthcare manager that requested your imaging first. ? Narrative [...] patients who have questions please contactthe health nurse healthcare manager that requested your imaging first. Yessi Lopes MD IMG DX ORDERABL ES * Phosphorus (10/31/2023 12:05 AM EST) Pathologist [facility] Phosphorus 3.3 2.5 - 4.5 mg/dL [facility] Blood 10/31/2023 12:0 5 AM EST 10/31/2023 12:23 AM EST Narrative Resulting Agency Comment Spec In Lab Selma Brian MD CHEMISTRY ORDERABL ES Performing Organization Address [facility] Co de Phone Number [facility] [place] [address] * Magnesium (10/31/2023 12:05 AM EST) Magnesium 0.77 0.69 - 1.07 mmol/L [facility] Blood 10/31/2023 12:0 5 AM EST 10/31/2023 12:23 AM EST Narrative Resulting Agency Comment Spec In Lab Selma Brian MD CHEMISTRY ORDERABL ES Performing Organization Address [facility]/ZIP Co de Phone Number [facility] [place] [address] * Blood culture (10/30/2023 1:00 PM EST) Blood Culture No growth at 5 days. [facility] Blood STRUCTURE OF RIGHT HAND / Unknown 10/30/2023 1:00 PM EST 10/30/2023 1:31 PM EST Comment:#2 Narrative Resulting Agency Comment Spec In Lab Yessi Lopes MD MICROBIOLOGY - BLOOD ORDERABLES Performing Organization Address [facility] [place] [address] * (ABNORMAL) Blood culture (10/30/2023 12:55 PM EST) Blood Culture Coagulase negative Staphylococcus species isolated : two morphologies Interpretation of the importance of skin daphne such as Coagulase Negative Staph, Viridans Strep, Corynebacteria and other Gram Positive organisms from a single Blood Culture set requires clinical correlation. (A) [facility] Gram Stain Anaerobic Growth detected in anaerobic bottle. Gram Positive Cocci in clusters seen (A) [facility] Gram Stain Aerobic Growth detected in aerobic bottle. Gram Positive Cocci in clusters seen (A) [facility] Organism Coagulase negative Staphylococcus species(A) [facility] Organism Gram Positive Cocci in clusters(A) [facility] Blood STRUCTURE OF LEFT FOOT / Unknown 10/30/2023 12:55 PM EST 10/30/2023 1:31 PM EST Comment:#1 Narrative Resulting Agency Comment Spec In Lab Yessi Lopes MD MICROBIOLOGY - BLOOD ORDERABLES Performing Organization Address [facility] Co de Phone Number [facility] [place] [address] * Valproic Acid Level, Total (10/30/2023 10:05 AM EST) Valproic Acid 19 mg/L [facility] Comment: Therapeutic Range: Anticonvulsant Therapy: ??50-100 mg/L Manic Episodes Associated with Bipolar Disorder: ??50-125 mg/L Blood 10/30/2023 10:0 5 AM EST 10/30/2023 10:21 AM EST Narrative Resulting Agency Comment Spec In Lab Eliane Mcallister [employer] CHEMISTRY ORDERABL ES Performing Organization Address [facility] [place] [address] * (ABNORMAL) Differential, Automated (10/30/2023 12:07 AM EST) Neutrophil % 67.0 % [facility] Neutrophil Absolute 5.04 1.70 - 6.10 x10(3)/mc L [facility] Lymph % 18.2 % [facility] Lymphocytes Abs 1.4 0.9 - 3.2 x10(3)/ L [facility] Monocyte % 12.9 % [facility] Monocyte Abs 1.0(H) 0.3 - 0.9 x10(3)/mc L [facility] Eos % 0.8 % [facility] Eosinophils Abs 0.1 0.0 - 0.4 x10(3)/ L [facility] Basophil % 0.4 % [facility] Baso Absolute 0.0 0.0 - 0.1 x10(3)/ L [facility] Immature Gran % 0.70 % [facility] Comment: Immature granulocytes(IG's)percentage and absolute count will include metamyelocytes, myelocytes, and promyelocytes. Blood smears from CBCs yielding IG's will be scanned manually for concordance. If this scan disagrees with the automated IG or if promyelocytes are noted, a manual differential will be performed. Immature Gran Absolute 0.05(H) 0.00 - 0.04 x10(3)/ L [facility] Blood 10/30/2023 12:0 7 AM EST 10/30/2023 12:15 AM EST Narrative Resulting Agency Comment Spec In Lab Jeronimo Robins MD HEMATOLOGY ORDERABLE S [facility] [place] [address] * (ABNORMAL) Hemogram (10/30/2023 12:07 AM EST) White Blood Cell 7.5 4.0 - 9.5 x10(3)/mc L [facility] Red Blood Cell 3.17(L) 4.58 - 5.54 x10(6)/mc L [facility] Hemoglobin 9.4(L) 13.7 - 16.5 g/dL [facility] Hematocrit 28.1(L) 40.5 - 48.5 % [facility] Mean Cell Volume 88.6 82.9 - 93.1 fL [facility] Mean Cell Hemoglobin 29.7 27.5 - 32.1 pg [facility] Mean Cell Hemoglobin Concentration 33.5 32.0 - 35.7 g/dL [facility] Platelet 188 145 - 357 x10(3)/mc L [facility] RDW Standard Deviation 46.1(H) 36.0 - 45.0 fL [facility] RDW coefficient of variation 14.2(H) 11.4 - 13.8 % [facility] Mean Platelet Volume 10.1 7.6 - 12.9 fL [facility] NRBC% auto 0.0 % [facility] NRBC Absolute 0.000 0.000 - 0.000 x10(3)/mc L [facility] Blood 10/30/2023 12:0 7 AM EST 10/30/2023 12:15 AM EST Narrative Resulting Agency Comment Spec In Lab Jeronimo Robins MD HEMATOLOGY ORDERABLE S Performing Organization Address City/State/[facility] Co de Phone Number [facility] [place] [address] * (ABNORMAL) Basic Metabolic Panel (non-fasting) (10/30/2023 12:07 AM EST) Glucose 117 65 - 199 mg/dL [facility] Comment:Diabetes: >=200 mg/d L plus symptoms Blood Urea Nitrogen 8(L) 10 - 20 mg/dL [facility] Creatinine 0.74(L) 0.80 - 1.50 mg/dL [facility] Sodium 141 135 - 145 mmol/L [facility] Potassium 4.0 3.5 - 5.0 mmol/L [facility] Comment: Please note: ??Patients with WBC >100,000 may have falsely elevated Potassium levels. ??For accurate Potassium quantification in these patients send serum separator tube (gold top) for subsequent determinations. ??Contact the Clinical Chemistry Laboratory if there are any questions. Chloride 104 98 - 107 mmol/L [facility] Carbon Dioxide 28 22 - 31 mmol/L [facility] Anion Gap 9 5 - 15 mmol/L [facility] Calcium 7.9(L) 8.5 - 10.5 mg/dL [facility] Est Glomerular Filtration Rate 106 >=60 mL/min/1. 73 m?? [facility] Comment: This patient's estimated GFR [...] MD CHEMISTRY ORDERABL ES Performing Organization Address [facility] Co de Phone Number [facility] [place] [address] * (ABNORMAL) Phosphorus (10/30/2023 12:07 AM EST) Phosphorus 1.9(L) 2.5 - 4.5 mg/dL [facility] Blood 10/30/2023 12:0 7 AM EST 10/30/2023 12:16 AM EST Narrative Resulting Agency Comment Spec In Lab Selma Brian MD CHEMISTRY ORDERABL ES Performing Organization Address City/[facility]/ZIP Co de Phone Number [facility] [place] [address] * Magnesium (10/30/2023 12:07 AM EST) Magnesium 0.86 0.69 - 1.07 mmol/L [facility] Blood 10/30/2023 12:0 7 AM EST 10/30/2023 12:16 AM EST Narrative Resulting Agency Comment Spec In Lab Selma Brian MD CHEMISTRY ORDERABL ES Performing Organization Address [facility] [place] [address] * [place] PCR [place] [place] (10/29/2023 6:48 AM EST) MRSA PCR Negative Negative [facility] MRSA (Interp) Methicillin-resist ant Staphylococcus aureus (MRSA) is NOT DETECTED The MRSA target DNA sequences (mec and SCC) were not detected within the acceptable ranges using the Xpert MRSA NxG on the GeneXpert Dx System ([employer]). This suggests the absence of MRSA in the patient specimen submitted for testing. This test is cleared by the U.S. Food and Drug Administration for clinical use and its performance characteristics have been verified by the [facility] at [facility]. This result does not rule out the presence of any other organisms. Rare false negative results may occur if MRSA is present at low concentrations with much higher concentrations of other organisms including MRSE or S. aureus with an empty SCC cassette. [facility] Comment: [VERIFIED DATE]10.29.23 Verified By:Katherine Early (Electronic Signature) Nasopharyngeal Swab 10/29/20 6:48 AM EST 10/29/2023 8:32 AM EST Comment:Specimen Type->Nasop haryngeal Swab Narrative Resulting Agency Comment Spec In Lab Selma Brian MD MOLECULAR ORDERABL ES Performing Organization Address [facility] [place] [address] * XR Chest One View (10/29/2023 6:20 [...] who have questions please contact the health nurse healthcare manager that requested your imaging first. ? Narrative 10/29/2023 7:15 AM EST EXAMINATION: XR CHEST ONE VIEW CLINICAL HISTORY: surveil LLL mucus plus TECHNIQUE: 1 view of the chest . 2 images COMPARISON: Chest radiograph and CT 10/28/2023. FINDINGS: Examination is limited by the right upper extremity obscuring part of the [id number]-lvug. Left chest wall subcutaneous port with tip at the superior cavoatrial junction. Similar-appearing left basilar opacity. No pneumothorax. No pleural effusion. Unchanged cardiomediastinal contours. Partially visualized cervical fusion hardware. Procedure Note Krishan Branch MD - 10/29/2023 EXAMINATION: XR CHEST ONE VIEW CLINICAL HISTORY: surveil LLL mucus plus TECHNIQUE: 1 view of the chest . 2 images COMPARISON: Chest radiograph and CT 10/28/2023. FINDINGS: Examination is limited by the right upper extremity obscuring part ofthe hosmg-[id number]. Left chest wall subcutaneous port with tip [...] patients who have questions please contactthe health nurse healthcare manager that requested your imaging first. Selma Brian MD IMG DX ORDERABLES * (ABNORMAL) Phosphorus (10/29/2023 12:28 AM EST) [facility] Phosphorus 2.3(L) 2.5 - 4.5 mg/dL [facility] Blood Venous Draw / Unknown 10/29/2023 12:28 AM EST 10/29/2023 12:35 AM EST Narrative Resulting Agency Comment Spec In Lab Marley Madrigal MD CHEMISTRY ORDERA BLES Performing Organization Address City/[facility]/ZIP Co de Phone Number [facility] [place] [address] * (ABNORMAL) Magnesium (10/29/2023 12:28 AM EST) [facility] Magnesium 0.60(L) 0.69 - 1.07 mmol/L [facility] Blood Venous Draw / Unknown 10/29/2023 12:28 AM EST 10/29/2023 12:35 AM EST Narrative Resulting Agency Comment Spec In Lab Marley Madrigal MD CHEMISTRY ORDERA BLES Performing Organization Address City/[facility]/[place]IP [place] [address] * (ABNORMAL) Differential, Automated (10/29/2023 12:28 AM EST) Neutrophil % 73.2 % [facility] Neutrophil Absolute 5.40 1.70 - 6.10 x10(3)/mc L [facility] Lymph % 13.3 % [facility] Lymphocytes Abs 1.0 0.9 - 3.2 x10(3)/ L [facility] Monocyte % 11.8 % [facility] Monocyte Abs 0.9 0.3 - 0.9 x10(3)/[facility] Eos % 0.5 % [facility] Eosinophils Abs 0.0 0.0 - 0.4 x10(3)/[facility] Basophil % 0.3 % [facility] Baso Absolute 0.0 0.0 - 0.1 x10(3)/[facility] Immature Gran % 0.90 % [facility] Comment: Immature granulocytes(IG's)percentage and absolute count will include metamyelocytes, myelocytes, and promyelocytes. Blood smears from CBCs yielding IG's will be scanned manually for concordance. If this scan disagrees with the automated IG or if promyelocytes are noted, a manual differential will be performed. Immature Gran Absolute 0.07(H) 0.00 - 0.04 x10(3)/ L [facility] Blood 10/29/2023 12:2 8 AM EST 10/29/2023 12:35 AM EST Narrative Resulting Agency Comment Spec In Lab Jeronimo Robins MD HEMATOLOGY ORDERABLE S [facility] [place] [address] * (ABNORMAL) Hemogram (10/29/2023 12:28 AM EST) White Blood Cell 7.4 4.0 - 9.5 x10(3)/ L [facility] Red Blood Cell 3.18(L) 4.58 - 5.54 x10(6)/[facility] Hemoglobin 9.4(L) 13.7 - 16.5 g/dL [facility] Hematocrit 28.2(L) 40.5 - 48.5 % [facility] Mean Cell Volume 88.7 82.9 - 93.1 fL [facility] Mean Cell Hemoglobin 29.6 27.5 - 32.1 pg [facility] Mean Cell Hemoglobin Concentration 33.3 32.0 - 35.7 g/dL [facility] Platelet 150 145 - 357 x10(3)/mc L [facility] RDW Standard Deviation 45.4(H) 36.0 - 45.0 fL [facility] RDW coefficient of variation 13.9(H) 11.4 - 13.8 % [facility] Mean Platelet Volume 10.3 7.6 - 12.9 fL [facility] NRBC% auto 0.0 % [facility] NRBC Absolute 0.000 0.000 - 0.000 x10(3)/mc L [facility] Blood 10/29/2023 12:2 8 AM EST 10/29/2023 12:35 AM EST Narrative Resulting Agency Comment Spec In Lab Jeronimo Robins MD HEMATOLOGY ORDERABLE S Performing Organization Address City/State/[facility] Co de Phone Number [facility] [place] [address] * (ABNORMAL) Basic Metabolic Panel (non-fasting) (10/29/2023 12:28 AM EST) Glucose 130 65 - 199 mg/dL [facility] Comment:Diabetes: >=200 mg/d L plus symptoms Blood Urea Nitrogen 10 10 - 20 mg/dL [facility] Creatinine 0.76(L) 0.80 - 1.50 mg/dL [facility] Sodium 141 135 - 145 mmol/L [facility] Potassium 3.8 3.5 - 5.0 mmol/L [facility] Comment: Please note: ??Patients with WBC >100,000 may have falsely elevated Potassium levels. ??For accurate Potassium quantification in these patients send serum separator tube (gold top) for subsequent determinations. ??Contact the Clinical Chemistry Laboratory if there are any questions. Chloride 104 98 - 107 mmol/L [facility] Carbon Dioxide 27 22 - 31 mmol/L [facility] Anion Gap 10 5 - 15 mmol/L [facility] Calcium 8.2(L) 8.5 - 10.5 mg/dL [facility] Est Glomerular Filtration Rate 105 [...] Lab Selma Brian MD CHEMISTRY ORDERABL ES [facility] [place] [place] [address] * ECHO COMPLETE W CONTRAST (10/28/2023 3:48 PM EST) EF 66 [facility] Anatomical Region Laterality Modality Cardiac Other 10/28/2023 2:09 PM EST Narrative 10/28/2023 4:37 PM EST 1 [place] [address] ? Echocardiogram Report Name: NIGHAT BARRIOS ? Study Date: 10/28/2023 02:09 PM ? Patient Location: [facility] IC10 A : 1965 ? Height: 188 cm ? Account: [id number] Age: 58 yrs ? Weight: 82 kg Gender: Male ?BSA: 2.1 m2 Ordering Physician: SELMA BRIAN Referring Physician: SAL BARR Performed By: SHYLA Sherman Reason For Study: Oxygen desaturation Interpreting Fellow: Antonette Hernandez. Exam Location: [facility]. Interpretation Summary Mild left ventricular chamber dilatation. Mildly increased thickness of the basal septum without LVOT obstruction. The LVEF is 66% by Matthew's without segmental wall motion abnormalities. Normal right ventricular size and systolic function. No hemodynamically significant valve disease. No prior study for comparison. Procedure Complete-[id number]. Image enhancement Definity was used for left [...] Note Lobo Jones MD - 10/28/2023 1 [place] [address] Echocardiogram Report Name: NIGHAT BARRIOS Study Date: 302:09 PM Patient Location: [place] [address] A : 1965 Height: 188 cm Account: [id number] Age: 58 yrs Weight: 82 kg Gender: Male BSA: 2.1 m2 Ordering Physician: SELMA BRIAN Referring Physician: SAL BARR Performed By: SHYLA Sherman Reason For Study: Oxygen desaturation Interpreting Fellow: Antonette Hernandez. Exam Location: [facility]. Interpretation Summary Mild left ventricular chamber dilatation. Mildly increased thickness ofthe basal septum without LVOT obstruction. The LVEF is 66% by Matthew's withoutsegmental wall motion abnormalities. Normal right ventricular size and systolic function. No hemodynamically significant valve disease. No prior study for comparison. Procedure Complete-[id number]. Image enhancement Definity was used for left [...] who have questions please contact the health nurse healthcare manager that requested your imaging first. ? Narrative 10/28/2023 2:59 PM EST EXAMINATION: CT [...] patients who have questions please contactthe health nurse healthcare manager that requested your imaging first. Yessi Lopes MD IMG CT ORDERABL ES [...] who have questions please contact the health nurse healthcare manager that requested your imaging first. ? Narrative 10/28/2023 1:21 PM EST EXAMINATION: CTA [...] administration of contrast, Administered 94.0 ml of USKRZHLDS630.00 mg/ml. Thin-section reconstructions as well as coronal [...] patients who have questions please contactthe health nurse healthcare manager that requested your imaging first. Selma Brian MD IMG CT ORDERABLES * Blood culture (10/28/2023 9:22 AM EST) Blood Culture No growth at 5 days. [facility] Blood STRUCTURE OF LEFT FOOT / Unknown 10/28/2023 9:22 AM EST 10/28/2023 9:54 AM EST Comment:#2 Narrative Resulting Agency Comment Spec In Lab Selma Brian MD MICROBIOLOGY - BLO OD ORDERABLES Performing Organization Address City/[facility]/ZIP Co de Phone Number [facility] [place] [address] * Blood culture (10/28/2023 9:10 AM EST) Blood Culture No growth at 5 days. [facility] Blood STRUCTURE OF RIGHT HAND / Unknown 10/28/2023 9:10 AM EST 10/28/2023 9:55 AM EST Comment:#1 Narrative Resulting Agency Comment Spec In Lab Selma Brian MD MICROBIOLOGY - BLO OD ORDERABLES Performing Organization Address [facility] Co de Phone Number [facility] [place] [address] * (ABNORMAL) BLOOD GAS 2 ARTERIAL (10/28/2023 6:04 AM EST) pH, Arterial 7.40 7.35 - 7.45 [facility] PCO2, Arterial 41 35 - 45 mmHg [facility] PO2, Arterial 64(L) 85 - 104 mmHg [facility] Bicarbonate, Arterial 24.9 20.0 - 26.0 mmol/L [facility] Base Excess, Arterial 0.1 -3.0 - 3.0 mmol/L [facility] Hgb Blood Gas 12.9(L) 13.7 - 16.5 g/dL [facility] Oxyhemoglobin, Arterial 92.1(L) 94.0 - 97.0 % [facility] Carboxyhemoglob in, Arterial 0.3 % [facility] Comment: Nonsmokers: 0.5-1.5% COHB Smokers: Variable, but usually less than 10% Toxic: 20-30% COHB Lethal: Greater than 60% COHB Methemoglobin, Arterial 0.3 <=1.5 % [facility] Na Whole Blood 139 135 - 145 mmol/L [facility] K Whole Blood 3.5 3.5 - 5.0 mmol/L [facility] Comment: Please note: Patients with WBC >100,000 may have falsely elevated Potassium levels. Contact the Clinical Chemistry Laboratory if there are any questions. ICa Whole Blood 1.12(L) 1.15 - 1.33 mmol/L [facility] Comment: Note: ??Total bilirubin higher than 20 mg/dL may lead to falsely low ionized calcium. CL Whole Blood 104 98 - 107 mmol/L [facility] Gluc Whole Bld 129 65 - 199 mg/dL [facility] Comment:Diabetes: >=200 mg/d L plus symptoms. Lactate WB 1.0 0.5 - 2.2 mmol/L [facility] FIO2 Art 60 % [facility] PF Ratio Art 107 [facility] Blood 10/28/2023 6:04 AM EST 10/28/2023 6:04 AM EST Selma Brian MD POINT OF CARE TEST ORDERABLES Performing Organization Address City/State/[facility] Co de Phone Number [facility] [place] [address] * (ABNORMAL) BLOOD GAS 2 VENOUS (10/28/2023 4:36 AM EST) pH, Venous 7.37 7.32 - 7.42 [facility] PCO2, Venous 44 41 - 51 mmHg [facility] PO2, Venous 34 25 - 40 mmHg [facility] Bicarbonate, Venous 24.8 mmol/L [facility] Base Excess, Venous -0.5 mmol/L [facility] Hgb Blood Gas 11.0(L) 13.7 - 16.5 g/dL [facility] Oxyhemoglobin, Venous 66.4 % [facility] Carboxyhemoglob in, Venous 0.3 % [facility] Comment: Nonsmokers: 0.5-1.5% COHB Smokers: Variable, but usually less than 10% Toxic: 20-30% COHB Lethal: Greater than 60% COHB Methemoglobin, Venous 0.4 <=1.5 % [facility] Na Whole Blood 139 135 - 145 mmol/L [facility] K Whole Blood 3.4(L) 3.5 - 5.0 mmol/L [facility] Comment: Please note: Patients with WBC >100,000 may have falsely elevated Potassium levels. Contact the Clinical Chemistry Laboratory if there are any questions. ICa Whole Blood 1.13(L) 1.15 - 1.33 mmol/L [facility] Comment: Note: ??Total bilirubin higher than 20 mg/dL may lead to falsely low ionized calcium. CL Whole Blood 104 98 - 107 mmol/L [facility] Gluc Whole Bld 120 65 - 199 mg/dL [facility] Comment:Diabetes: >=200 mg/d L plus symptoms Lactate WB 0.8 0.5 - 2.2 mmol/L [facility] Fraction of Inspired Oxygen, Venous 60 % [facility] Blood Gas Source Venous [facility] Blood 10/28/2023 4:36 AM EST 10/28/2023 4:36 AM EST Selma Brian MD POINT OF CARE TEST ORDERABLES Performing Organization Address City/[facility]/ZIP Co de Phone Number [facility] [place] [address] * EKG 12 Lead (10/28/2023 4:01 AM EST) Ventricular rate 94 BPM MUSE SYSTEM Atrial Rate 94 BPM MUSE SYSTEM P-R Interval 150 ms MUSE SYSTEM QRS Duration 106 ms MUSE SYSTEM Q-T Interval 354 ms MUSE SYSTEM QTC Calculated (Bezet) 442 ms MUSE SYSTEM Calculated P [place] 70 degrees MUSE SYSTEM Calculated R [place] 4 degrees MUSE SYSTEM Calculated T [place] 66 degrees MUSE SYSTEM INTERPRETATION Normal sinus rhythm Normal ECG When compared with ECG of 25-OCT-2023 11:39, Incomplete right bundle branch block is no longer Present Confirmed by MD Alesha, Rajinder Hartmann ([id number]) on 10/31/2023 10:47:00 AM MUSE SYSTEM 10/28/2023 4:01 AM EST 10/31/2023 10:47 AM EST Selma Brian MD ECG ORDERABLES Performing Organization Address City/[facility]/ZIP Co de Phone Number MUSE SYSTEM [...] who have questions please contact the health nurse healthcare manager that requested your imaging first. ? Narrative 10/28/2023 3:39 AM EST EXAMINATION: XR [...] patients who have questions please contactthe health nurse healthcare manager that requested your imaging first. Selma Brian MD IMG DX ORDERABLES * (ABNORMAL) Differential, Automated (10/28/2023 12:12 AM EST) Neutrophil % 78.7 % [facility] Neutrophil Absolute 6.64(H) 1.70 - 6.10 x10(3)/mc L [facility] Lymph % 12.7 % [facility] Lymphocytes Abs 1.1 0.9 - 3.2 x10(3)/mc L [facility] Monocyte % 6.6 % [facility] Monocyte Abs 0.6 0.3 - 0.9 x10(3)/ L [facility] Eos % 0.9 % [facility] Eosinophils Abs 0.1 0.0 - 0.4 x10(3)/ L [facility] Basophil % 0.4 % [facility] Baso Absolute 0.0 0.0 - 0.1 x10(3)/mc L [facility] Immature Gran % 0.70 % [facility] Comment: Immature granulocytes(IG's)percentage and absolute count will include metamyelocytes, myelocytes, and promyelocytes. Blood smears from CBCs yielding IG's will be scanned manually for concordance. If this scan disagrees with the automated IG or if promyelocytes are noted, a manual differential will be performed. Immature Gran Absolute 0.06(H) 0.00 - 0.04 x10(3)/mc L [facility] Blood 10/28/2023 12:1 2 AM EST 10/28/2023 12:19 AM EST Narrative Resulting Agency Comment Spec In Lab Amelia Ngo MD HEMATOLOGY ORDERABLE S [facility] [place] [address] * (ABNORMAL) Hemogram (10/28/2023 12:12 AM EST) White Blood Cell 8.4 4.0 - 9.5 x10(3)/mc L [facility] Red Blood Cell 3.24(L) 4.58 - 5.54 x10(6)/mc L [facility] Hemoglobin 9.7(L) 13.7 - 16.5 g/dL [facility] Hematocrit 28.8(L) 40.5 - 48.5 % [facility] Mean Cell Volume 88.9 82.9 - 93.1 fL [facility] Mean Cell Hemoglobin 29.9 27.5 - 32.1 pg [facility] Mean Cell Hemoglobin Concentration 33.7 32.0 - 35.7 g/dL [facility] Platelet 149 145 - 357 x10(3)/mc L [facility] RDW Standard Deviation 46.2(H) 36.0 - 45.0 fL [facility] RDW coefficient of variation 14.2(H) 11.4 - 13.8 % [facility] Mean Platelet Volume 11.1 7.6 - 12.9 fL [facility] NRBC% auto 0.0 % [facility] NRBC Absolute 0.000 0.000 - 0.000 x10(3)/ L [facility] Blood 10/28/2023 12:1 2 AM EST 10/28/2023 12:19 AM EST Narrative Resulting Agency Comment Spec In Lab Amelia Ngo MD HEMATOLOGY ORDERABLE S Performing Organization Address City/State/[facility] Co de Phone Number [facility] [place] [address] * (ABNORMAL) Basic Metabolic Panel (non-fasting) (10/28/2023 12:12 AM EST) Glucose 94 65 - 199 mg/dL [facility] Comment:Diabetes: >=200 mg/d L plus symptoms Blood Urea Nitrogen 13 10 - 20 mg/dL [facility] Creatinine 0.82 0.80 - 1.50 mg/dL [facility] Sodium 142 135 - 145 mmol/L [facility] Potassium 3.7 3.5 - 5.0 mmol/L [facility] Comment: Please note: ??Patients with WBC >100,000 may have falsely elevated Potassium levels. ??For accurate Potassium quantification in these patients send serum separator tube (gold top) for subsequent determinations. ??Contact the Clinical Chemistry Laboratory if there are any questions. Chloride 108(H) 98 - 107 mmol/L [facility] Carbon Dioxide 24 22 - 31 mmol/L [facility] Anion Gap 10 5 - 15 mmol/L [facility] Calcium 8.2(L) 8.5 - 10.5 mg/dL [facility] Est Glomerular Filtration Rate 103 >=60 mL/min/1. 73 m?? [facility] Comment: This patient's estimated GFR [...] Lab Selma Brian MD CHEMISTRY ORDERABL ES [facility] [place] [address] * POCT Glucose (10/27/2023 12:38 PM EST) Glucose, POC 92 65 - 199 mg/dL [facility] Comment: Supplemental ranges: <140 mg/dL before meals <180 mg/dL all other times of the day Blood 10/27/2023 12:3 8 PM EST 10/27/2023 12:38 PM EST Selma Brian MD POINT OF CARE TEST ORDERABLES [facility] [place] [address] * POCT Glucose (10/27/2023 8:01 AM EST) Glucose, POC 104 65 - 199 mg/dL [facility] Comment: Supplemental ranges: <140 mg/dL before meals <180 mg/dL all other times of the day Blood 10/27/2023 8:01 AM EST 10/27/2023 8:01 AM EST Selma Brian MD POINT OF CARE TEST ORDERABLES Performing Organization Address [facility] Co de Phone Number [facility] [place] [address] * POCT Glucose (10/27/2023 3:51 AM EST) Glucose, POC 86 65 - 199 mg/dL [facility] Comment: Supplemental ranges: <140 mg/dL before meals <180 mg/dL all other times of the day Blood 10/27/2023 3:51 AM EST 10/27/2023 3:51 AM EST Selma Brian MD POINT OF CARE TEST ORDERABLES Performing Organization Address [facility] de Phone Number [facility] [place] [address] * POCT Glucose (10/27/2023 12:44 AM EST) Glucose, POC 86 65 - 199 mg/dL [facility] Comment: Supplemental ranges: <140 mg/dL before meals <180 mg/dL all other times of the day Blood 10/27/2023 12:4 4 AM EST 10/27/2023 12:44 AM EST Selma Brian MD POINT OF CARE TEST ORDERABLES Performing Organization Address [facility] de Phone Number [facility] [place] [address] * (ABNORMAL) Differential, Automated (10/27/2023 12:37 AM EST) Neutrophil % 83.0 % [facility] Neutrophil Absolute 12.68(H) 1.70 - 6.10 x10(3)/mc L [facility] Lymph % 9.6 % [facility] Lymphocytes Abs 1.5 0.9 - 3.2 x10(3)/mc L [facility] Monocyte % 4.8 % [facility] Monocyte Abs 0.7 0.3 - 0.9 x10(3)/[facility] Eos % 1.6 % [facility] Eosinophils Abs 0.2 0.0 - 0.4 x10(3)/[facility] LABORATORY Basophil % 0.2 % [facility] Baso Absolute 0.0 0.0 - 0.1 x10(3)/[facility] LABORATORY Immature Gran % 0.80 % [facility] Comment: Immature granulocytes(IG's)percentage and absolute count will include metamyelocytes, myelocytes, and promyelocytes. Blood smears from CBCs yielding IG's will be scanned manually for concordance. If this scan disagrees with the automated IG or if promyelocytes are noted, a manual differential will be performed. Immature Gran Absolute 0.12(H) 0.00 - 0.04 x10(3)/[facility] LABORATORY Blood 10/27/2023 12:3 7 AM EST 10/27/2023 12:49 AM EST Narrative Resulting Agency Comment Spec In Lab Amelia Ngo MD HEMATOLOGY ORDERABLE S Performing Organization Address City/State/[facility] Co de Phone Number [facility] [place] [address] * (ABNORMAL) Hemogram (10/27/2023 12:37 AM EST) White Blood Cell 15.3(H) 4.0 - 9.5 x10(3)/[facility] LABORATORY Red Blood Cell 3.26(L) 4.58 - 5.54 x10(6)/[facility] LABORATORY Hemoglobin 9.8(L) 13.7 - 16.5 g/dL [facility] Hematocrit 28.8(L) 40.5 - 48.5 % [facility] Mean Cell Volume 88.3 82.9 - 93.1 fL [facility] Mean Cell Hemoglobin 30.1 27.5 - 32.1 pg [facility] Mean Cell Hemoglobin Concentration 34.0 32.0 - 35.7 g/dL [facility] Platelet 160 145 - 357 x10(3)/mc L [facility] RDW Standard Deviation 47.3(H) 36.0 - 45.0 fL [facility] RDW coefficient of variation 14.4(H) 11.4 - 13.8 % [facility] Mean Platelet Volume 10.7 7.6 - 12.9 fL [facility] NRBC% auto 0.0 % [facility] NRBC Absolute 0.000 0.000 - 0.000 x10(3)/mc L [facility] Blood 10/27/2023 12:3 7 AM EST 10/27/2023 12:49 AM EST Narrative Resulting Agency Comment Spec In Lab Amelia Ngo MD HEMATOLOGY ORDERABLE S Performing Organization Address City/[facility]/ZIP Co de Phone Number [facility] [place] [address] * (ABNORMAL) Phosphorus (10/27/2023 12:37 AM EST) Phosphorus 2.4(L) 2.5 - 4.5 mg/dL [facility] Blood 10/27/2023 12:3 7 AM EST 10/27/2023 12:49 AM EST Narrative Resulting Agency Comment Spec In Lab Yoel Sethi Jr., MD CHEMISTRY ORDERA BLES Performing Organization Address City/[facility] Co de Phone Number [facility] [place] [address] * Magnesium (10/27/2023 12:37 AM EST) Magnesium 0.91 0.69 - 1.07 mmol/L [facility] Blood 10/27/2023 12:3 7 AM EST 10/27/2023 12:49 AM EST Narrative Resulting Agency Comment Spec In Lab Yoel Sethi Jr., MD CHEMISTRY ORDERA BLES Performing Organization Address City/[facility]/ZIP Co de Phone Number [facility] [place] [address] * (ABNORMAL) Basic Metabolic Panel (non-fasting) (10/27/2023 12:37 AM EST) Glucose 83 65 - 199 mg/dL [facility] Comment:Diabetes: >=200 mg/d L plus symptoms Blood Urea Nitrogen 19 10 - 20 mg/dL [facility] Creatinine 0.87 0.80 - 1.50 mg/dL [facility] Sodium 141 135 - 145 mmol/L [facility] Potassium 3.6 3.5 - 5.0 mmol/L [facility] Comment: Please note: ??Patients with WBC >100,000 may have falsely elevated Potassium levels. ??For accurate Potassium quantification in these patients send serum separator tube (gold top) for subsequent determinations. ??Contact the Clinical Chemistry Laboratory if there are any questions. Chloride 110(H) 98 - 107 mmol/L [facility] Carbon Dioxide 21(L) 22 - 31 mmol/L [facility] Anion Gap 10 5 - 15 mmol/L [facility] Calcium 8.1(L) 8.5 - 10.5 mg/dL [facility] Est Glomerular Filtration Rate 101 >=60 mL/min/1. 73 m?? [facility] Comment: This patient's estimated GFR [...] Lab Selma Brian MD CHEMISTRY ORDERABL ES [facility] [place] [address] * POCT Glucose (10/26/2023 7:31 PM EST) Glucose, POC 111 65 - 199 mg/dL [facility] Comment: Supplemental ranges: <140 mg/dL before meals <180 mg/dL all other times of the day Blood 10/26/2023 7:31 PM EST 10/26/2023 7:31 PM EST Selma Brian MD POINT OF CARE TEST ORDERABLES Performing Organization Address City/[facility]/ZIP Co de Phone Number [facility] [place] [address] * POCT Glucose (10/26/2023 4:57 PM EST) Glucose, POC 89 65 - 199 mg/dL [facility] Comment: Supplemental ranges: <140 mg/dL before meals <180 mg/dL all other times of the day Blood 10/26/2023 4:57 PM EST 10/26/2023 4:57 PM EST Selma Brian MD POINT OF CARE TEST ORDERABLES Performing Organization Address City/[facility]/ZIP Co de Phone Number [facility] [place] [address] * POCT Glucose (10/26/2023 4:04 PM EST) Glucose, POC 77 65 - 199 mg/dL [facility] Comment: Supplemental ranges: <140 mg/dL before meals <180 mg/dL all other times of the day Blood 10/26/2023 4:04 PM EST 10/26/2023 4:04 PM EST Selma Brian MD POINT OF CARE TEST ORDERABLES Performing Organization Address City/[facility] Co de Phone Number [facility] [place] [address] * POCT Glucose (10/26/2023 12:10 PM EST) Glucose, POC 77 65 - 199 mg/dL [facility] Comment: Supplemental ranges: <140 mg/dL before meals <180 mg/dL all other times of the day Blood 10/26/2023 12:1 0 PM EST 10/26/2023 12:10 PM EST Selma Brian MD POINT OF CARE TEST ORDERABLES Performing Organization Address City/[facility]/ZIP Co de Phone Number [facility] [place] [address] * POCT Glucose (10/26/2023 7:27 AM EST) Glucose, POC 85 65 - 199 mg/dL [facility] Comment: Supplemental ranges: <140 mg/dL before meals <180 mg/dL all other times of the day Blood 10/26/2023 7:27 AM EST 10/26/2023 7:27 AM EST Dedra Arrington DO POINT OF CA RE TEST ORDERABLES Performing Organization Address [facility] Co de Phone Number [facility] [place] [address] * POCT Glucose (10/26/2023 4:36 AM EST) Glucose, POC 84 65 - 199 mg/dL [facility] Comment: Supplemental ranges: <140 mg/dL before meals <180 mg/dL all other times of the day Blood 10/26/2023 4:36 AM EST 10/26/2023 4:36 AM EST Dedra Arrington DO POINT OF CA RE TEST ORDERABLES Performing Organization Address City/[facility] Co de Phone Number [facility] [place] [address] * (ABNORMAL) Differential, Automated (10/26/2023 12:59 AM EST) Neutrophil % 88.5 % [facility] Neutrophil Absolute 17.54(H) 1.70 - 6.10 x10(3)/mc L [facility] Lymph % 4.1 % [facility] Lymphocytes Abs 0.8(L) 0.9 - 3.2 x10(3)/mc L [facility] Monocyte % 5.6 % [facility] Monocyte Abs 1.1(H) 0.3 - 0.9 x10(3)/mc L [facility] Eos % 0.2 % [facility] Eosinophils Abs 0.0 0.0 - 0.4 x10(3)/mc L [facility] Basophil % 0.2 % [facility] Baso Absolute 0.0 0.0 - 0.1 x10(3)/mc L [facility] Immature Gran % 1.40 % [facility] Comment: Immature granulocytes(IG's)percentage and absolute count will include metamyelocytes, myelocytes, and promyelocytes. Blood smears from CBCs yielding IG's will be scanned manually for concordance. If this scan disagrees with the automated IG or if promyelocytes are noted, a manual differential will be performed. Immature Gran Absolute 0.28(H) 0.00 - 0.04 x10(3)/ L [facility] Blood 10/26/2023 12:5 9 AM EST 10/26/2023 1:13 AM EST Narrative Resulting Agency Comment Spec In Lab Amelia Ngo MD HEMATOLOGY ORDERABLE S [facility] [place] [address] * (ABNORMAL) Hemogram (10/26/2023 12:59 AM EST) White Blood Cell 19.8(H) 4.0 - 9.5 x10(3)/ L [facility] Red Blood Cell 3.39(L) 4.58 - 5.54 x10(6)/ L [facility] Hemoglobin 10.2(L) 13.7 - 16.5 g/dL [facility] Hematocrit 29.8(L) 40.5 - 48.5 % [facility] Mean Cell Volume 87.9 82.9 - 93.1 fL [facility] Mean Cell Hemoglobin 30.1 27.5 - 32.1 pg [facility] Mean Cell Hemoglobin Concentration 34.2 32.0 - 35.7 g/dL [facility] Platelet 163 145 - 357 x10(3)/ L [facility] RDW Standard Deviation 46.2(H) 36.0 - 45.0 fL [facility] RDW coefficient of variation 14.3(H) 11.4 - 13.8 % [facility] Mean Platelet Volume 10.8 7.6 - 12.9 fL [facility] NRBC% auto 0.0 % [facility] NRBC Absolute 0.000 0.000 - 0.000 x10(3)/mc L [facility] Blood 10/26/2023 12:5 9 AM EST 10/26/2023 1:13 AM EST Narrative Resulting Agency Comment Spec In Lab Amelia Ngo MD HEMATOLOGY ORDERABLE S Performing Organization Address [facility] Co de Phone Number [facility] [place] [address] * POCT Glucose (10/26/2023 12:59 AM EST) Glucose, POC 105 65 - 199 mg/dL [facility] Comment: Supplemental ranges: <140 mg/dL before meals <180 mg/dL all other times of the day Blood 10/26/2023 12:5 9 AM EST 10/26/2023 12:59 AM EST Dedra Arrington DO POINT OF CA RE TEST ORDERABLES Performing Organization Address [facility] Co de Phone Number [facility] [place] [address] * (ABNORMAL) Phosphorus (10/26/2023 12:59 AM EST) Phosphorus 2.3(L) 2.5 - 4.5 mg/dL [facility] Blood 10/26/2023 12:5 9 AM EST 10/26/2023 1:13 AM EST Narrative Resulting Agency Comment Spec In Lab Yoel Sethi Jr., MD CHEMISTRY ORDERA BLES Performing Organization Address [facility] Co de Phone Number [facility] [place] [address] * Magnesium (10/26/2023 12:59 AM EST) Magnesium 0.97 0.69 - 1.07 mmol/L [facility] Comment:result rechecked-JSJ Blood 10/26/2023 12:5 9 AM EST 10/26/2023 1:13 AM EST Narrative Resulting Agency Comment Spec In Lab Yoel Sethi Jr., MD CHEMISTRY ORDERA BLES [facility] [place] [address] * (ABNORMAL) Basic Metabolic Panel (non-fasting) (10/26/2023 12:59 AM EST) Glucose 100 65 - 199 mg/dL [facility] Comment:Diabetes: >=200 mg/d L plus symptoms Blood Urea Nitrogen 23(H) 10 - 20 mg/dL [facility] Creatinine 0.87 0.80 - 1.50 mg/dL [facility] Sodium 139 135 - 145 mmol/L [facility] Potassium 3.9 3.5 - 5.0 mmol/L [facility] Comment: Please note: ??Patients with WBC >100,000 may have falsely elevated Potassium levels. ??For accurate Potassium quantification in these patients send serum separator tube (gold top) for subsequent determinations. ??Contact the Clinical Chemistry Laboratory if there are any questions. Chloride 109(H) 98 - 107 mmol/L [facility] Carbon Dioxide 20(L) 22 - 31 mmol/L [facility] Anion Gap 10 5 - 15 mmol/L [facility] Calcium 8.0(L) 8.5 - 10.5 mg/dL [facility] Est Glomerular Filtration Rate 101 >=60 mL/min/1. 73 m?? [facility] Comment: This patient's estimated GFR [...] MD CHEMISTRY ORDERABL ES Performing Organization Address [facility] Co de Phone Number [facility] [place] [address] * POCT Glucose (10/25/2023 8:57 PM EST) Glucose, POC 85 65 - 199 mg/dL [facility] Comment: Supplemental ranges: <140 mg/dL before meals <180 mg/dL all other times of the day Blood 10/25/2023 8:57 PM EST 10/25/2023 8:57 PM EST Dedra Kahn Atchialejandro DO POINT OF CA RE TEST ORDERABLES Performing Organization Address [facility] Co de Phone Number [facility] [place] [address] * POCT Glucose (10/25/2023 3:26 PM EST) Glucose, POC 97 65 - 199 mg/dL [facility] Comment: Supplemental ranges: <140 mg/dL before meals <180 mg/dL all other times of the day Blood 10/25/2023 3:26 PM EST 10/25/2023 3:26 PM EST Dedra Kahn Atchinsgi DO POINT OF CA RE TEST ORDERABLES Performing Organization Address [facility] Co de Phone Number [facility] [place] [address] * EKG 12 Lead (10/25/2023 11:39 AM EST) Ventricular rate 78 BPM MUSE SYSTEM Atrial Rate 78 BPM MUSE SYSTEM P-R Interval 132 ms MUSE SYSTEM QRS Duration 110 ms MUSE SYSTEM Q-T Interval 392 ms MUSE SYSTEM QTC Calculated (Bezet) 446 ms MUSE SYSTEM Calculated P [place] 66 degrees MUSE SYSTEM Calculated R [place] 3 degrees MUSE SYSTEM Calculated T [place] 65 degrees MUSE SYSTEM INTERPRETATION Normal sinus rhythm Incomplete right bundle branch block Nonspecific T wave abnormality Abnormal ECG No previous ECGs available Confirmed by MD Powers David ([id number]) on 10/26/2023 7:18:06 PM MUSE SYSTEM 10/25/2023 11:3 9 AM EST 10/26/2023 7:18 PM EST Yoel Sethi Jr., MD ECG ORDERABLES MUSE SYSTEM * POCT Glucose (10/25/2023 11:06 AM EST) Glucose, POC 96 65 - 199 mg/dL [facility] Comment: Supplemental ranges: <140 mg/dL before meals <180 mg/dL all other times of the day Blood 10/25/2023 11:0 6 AM EST 10/25/2023 11:06 AM EST Dedra Arrington DO POINT OF CA RE TEST ORDERABLES Performing Organization Address [facility] Co de Phone Number [facility] [place] [address] * Phosphorus (10/25/2023 10:50 AM EST) Phosphorus 2.8 2.5 - 4.5 mg/dL [facility] Blood Venous Draw / Unknown 10/25/2023 10:50 AM EST 10/25/2023 11:07 AM EST Narrative Resulting Agency Comment Spec In Lab Amelia Ngo MD CHEMISTRY ORDERABLES Performing Organization Address [facility] Co de Phone Number [facility] [place] [address] * (ABNORMAL) Magnesium (10/25/2023 10:50 AM EST) Magnesium 0.57(L) 0.69 - 1.07 mmol/L [facility] Blood Venous Draw / Unknown 10/25/2023 10:50 AM EST 10/25/2023 11:07 AM EST Narrative Resulting Agency Comment Spec In Lab Amelia Ngo MD [place] [address] * (ABNORMAL) Differential, Automated (10/25/2023 10:50 AM EST) Neutrophil % 83.2 % [facility] Neutrophil Absolute 30.11(H) 1.70 - 6.10 x10(3)/mc L [facility] Lymph % 5.5 % [facility] Lymphocytes Abs 2.0 0.9 - 3.2 x10(3)/mc L [facility] Monocyte % 6.5 % [facility] Monocyte Abs 2.3(H) 0.3 - 0.9 x10(3)/mc L [facility] Eos % 0.0 % [facility] Eosinophils Abs 0.0 0.0 - 0.4 x10(3)/mc L [facility] Basophil % 0.4 % [facility] Baso Absolute 0.1 0.0 - 0.1 x10(3)/mc L [facility] Immature Gran % 4.40 % [facility] Comment: Immature granulocytes(IG's)percentage and absolute count will include metamyelocytes, myelocytes, and promyelocytes. Blood smears from CBCs yielding IG's will be scanned manually for concordance. If this scan disagrees with the automated IG or if promyelocytes are noted, a manual differential will be performed. Immature Gran Absolute 1.58(H) 0.00 - 0.04 x10(3)/mc L [facility] Blood 10/25/2023 10:5 0 AM EST 10/25/2023 11:07 AM EST Narrative Resulting Agency Comment Spec In Lab Amelia Ngo MD [place]EM[place]OLOG[place] [address] * (ABNORMAL) Hemogram (10/25/2023 10:50 AM EST) White Blood Cell 36.2(Crit ical) 4.0 - 9.5 x10(3)/mc L [facility] Comment: This result has been called to DEE MCLEAN by Albreta Shankar on 10 25 2023 at 1136, and has been read back. Red Blood Cell 2.91(L) 4.58 - 5.54 x10(6)/mc L [facility] Hemoglobin 8.8(L) 13.7 - 16.5 g/dL [facility] Comment: This result has been called to DEE MCLEAN by Alberta Shankar on 10 25 2023 at 1136, and has been read back. Hematocrit 25.6(L) 40.5 - 48.5 % [facility] Mean Cell Volume 88.0 82.9 - 93.1 fL [facility] Mean Cell Hemoglobin 30.2 27.5 - 32.1 pg [facility] Mean Cell Hemoglobin Concentration 34.4 32.0 - 35.7 g/dL [facility] Platelet 227 145 - 357 x10(3)/mc L [facility] RDW Standard Deviation 45.5(H) 36.0 - 45.0 fL [facility] RDW coefficient of variation 14.1(H) 11.4 - 13.8 % [facility] Mean Platelet Volume 11.1 7.6 - 12.9 fL [facility] NRBC% auto 0.0 % [facility] NRBC Absolute 0.000 0.000 - 0.000 x10(3)/mc L [facility] Blood 10/25/2023 10:5 0 AM EST 10/25/2023 11:07 AM EST Narrative Resulting Agency Comment Spec In Lab Amelia Ngo MD HEMATOLOGY ORDERABLE S [facility] [address] * (ABNORMAL) Comprehensive metabolic panel (non-fasting) (10/25/2023 10:50 AM EST) Glucose 91 65 - 199 mg/dL [facility] Comment:Diabetes: >=200 mg/d L plus symptoms Blood Urea Nitrogen 26(H) 10 - 20 mg/dL [facility] Creatinine 1.04 0.80 - 1.50 mg/dL [facility] Sodium 139 135 - 145 mmol/L [facility] Potassium 3.7 3.5 - 5.0 mmol/L [facility] Comment: Please note: ??Patients with WBC >100,000 may have falsely elevated Potassium levels. ??For accurate Potassium quantification in these patients send serum separator tube (gold top) for subsequent determinations. ??Contact the Clinical Chemistry Laboratory if there are any questions. Chloride 106 98 - 107 mmol/L [facility] Carbon Dioxide 21(L) 22 - 31 mmol/L [facility] Anion Gap 12 5 - 15 mmol/L [facility] Calcium 8.1(L) 8.5 - 10.5 mg/dL [facility] Protein, Total 5.4(L) 6.1 - 8.0 g/dL [facility] Albumin 3.2 3.2 - 5.2 g/dL [facility] Aspartate Aminotransferase 40(H) 0 - 39 unit/L [facility] Alanine Aminotransferase 27 0 - 55 unit/L [facility] Alkaline Phosphatase 54 40 - 130 unit/L [facility] Bilirubin, Total 0.3 0.2 - 1.3 mg/dL [facility] Est Glomerular Filtration Rate 84 >=60 mL/min/1. 73 m?? [facility] Comment: This patient's estimated GFR [...] Yoel Sethi Jr., MD CHEMISTRY KAUSHIKA MARYAM [facility] [place] [address] * Lactate, whole blood, send to lab ([facility] (10/25/2023 10:50 AM EST) Lactate WB 1.6 0.5 - 2.2 mmol/L [facility] Blood 10/25/2023 10:5 0 AM EST 10/25/2023 11:06 AM EST Narrative Resulting Agency Comment Spec In Lab Yoel Sethi Jr., MD CHEMISTRY ORDERA BLES Performing Organization Address City/[facility] Co de Phone Number [facility] [place] [address] * Blood culture (10/25/2023 10:50 AM EST) Blood Culture No growth at 5 days. [facility] Blood 10/25/2023 10:5 0 AM EST 10/25/2023 11:40 AM EST Comment:R wrist Narrative Resulting Agency Comment Spec In Lab Yoel Sethi Jr., MD MICROBIOLOGY - B LOOD ORDERABLES Performing Organization Address City/[facility] Co de Phone Number [facility] [place] [address] * Blood culture (10/25/2023 10:40 AM EST) Blood Culture No growth at 5 days. [facility] Blood 10/25/2023 10:4 0 AM EST 10/25/2023 11:40 AM EST Comment:RH Narrative Resulting Agency Comment Spec In Lab Yoel Sethi Jr., MD MICROBIOLOGY - B LOOD ORDERABLES Performing Organization Address City/[facility] Co de Phone Number [facility] [place] [address] * POCT Glucose (10/25/2023 9:55 AM EST) Glucose, POC 100 65 - 199 mg/dL [facility] Comment: Supplemental ranges: <140 mg/dL before meals <180 mg/dL all other times of the day Blood 10/25/2023 9:55 AM EST 10/25/2023 9:55 AM EST Yoel Sethi Jr., MD POINT OF CARE TE ST ORDERABLES [facility] [address] [id number] * XR Fluoro No Rad <1Hr - OR Use (10/25/2023 9:38 AM EST) Narrative Dicom, Auditing User - 10/25/2023 9:38 AM EST This exam is auto-finalizing. No interpretation was done. Selma Brian MD IMG FLUORO ORDERAB LES * (ABNORMAL) Urine culture Cystoscopic Urine (10/25/2023 9:13 AM EST) Urine Culture Greater than 50,000 cfu/mL Pseudomonas aeruginosa Greater than 50,000 cfu/mL Enterococcus faecalis (A) [facility] Organism Pseudomonas aeruginosa(A) [facility] Organism Enterococcus faecalis(A) [facility] Cystoscopic Urine 10/25/2023 9:13 AM EST [...] Brian MD MICROBIOLOGY - GEN ERAL ORDERABLES [facility] [place] [address] * Type and screen ([facility]LAURIE) (10/25/2023 8:43 AM EST) ABORH Type AB POSITIVE [facility] Patient BB History Not Found [facility] Expires at [id number] on: 10-28-2023 [facility] Ab Screen Interp Negative [facility] Blood 10/25/2023 8:43 AM EST 10/25/2023 8:43 AM EST Narrative [facility] - 10/25/2023 8:43 AM EST This Type and Screen result is only valid at the [facility] Resulting Agency Comment Spec In Lab Cheyanne Lemon MD BLOOD BANK LAB AMANDA DIXON Performing Organization Address City/[facility]/ZIP Co de Phone Number [facility] [place] [address] * Hemoglobin A1c (10/25/2023 7:58 AM EST) Hemoglobin A1c 4.8 4.3 - 5.6 % [facility] Comment: Reference Range: 4.3 - 5.6% [...] Mellitus, Diabetes Care 2013; 36: Suppl. 1, R88-98 Estimated Average Glucose 92 mg/dL [facility] Comment: Note: The eAG calculation has not been proven valid for women, individuals below 18 years old or above 70 years old, or individuals with hemoglobinopathies. Estimated average glucose (eAG) is calculated from the equation described in: Sal PARISH, Jorge J, Eddie R, et al. ??Translating the A1C assay into estimated average glucose values. ??Diabetes Care 2008:31(8):3111-5839. Additional resources are available on the ADA website (diabetes.org). Blood Venous Draw / Unknown 10/25/2023 7:58 AM EST 10/25/2023 10:54 AM EST Narrative Resulting Agency Comment Spec In Lab Nallely E Caille [facility]MI[facility] ORDERA BLES Performing Organization Address City/[facility]/ZIP Co de Phone Number [facility] [place] [address] * Phosphorus (10/25/2023 7:58 AM EST) Pathologist [facility] Phosphorus 3.0 2.5 - 4.5 mg/dL [facility] Blood Venous Draw / Unknown 10/25/2023 7:58 AM EST 10/25/2023 8:13 AM EST Narrative Resulting Agency Comment Spec In Lab Nallely E Caille ACTUARIAL MATHEMATICIAN CHEMISTRY ORDERA BLES Performing Organization Address City/[facility]/ZIP Co de Phone Number [facility] [place] [address] * (ABNORMAL) Magnesium (10/25/2023 7:58 AM EST) Pathologist [facility] Magnesium 0.55(L) 0.69 - 1.07 mmol/L [facility] Blood Venous Draw / Unknown 10/25/2023 7:58 AM EST 10/25/2023 8:13 AM EST Narrative Resulting Agency Comment Spec In Lab Nallely E Caille ACTUARIAL MATHEMATICIAN CHEMISTRY ORDERA BLES Performing Organization Address City/[facility] Co de Phone Number [facility] [place] [address] * Scan, Peripheral Blood (10/25/2023 7:58 AM EST) Plat estimate Normal [facility] RBC Morphology Abnormal [facility] Ovalocytes 1-5 /HPF [facility] [place] Cells 1-5 /HPF [facility] Vacuolated Neut Present [facility] Blood 10/25/2023 7:58 AM EST 10/25/2023 8:11 AM EST Narrative Resulting Agency Comment Spec In Lab Cheyanne Lemon MD HEMATOLOGY ORDERABL ES Performing Organization Address City/[facility]/ZIP Co de Phone Number [facility] [place] [address] * (ABNORMAL) Differential, Automated (10/25/2023 7:58 AM EST) Neutrophil % 83.8 % [facility] Neutrophil Absolute 23.81(H) 1.70 - 6.10 x10(3)/mc L [facility] Lymph % 3.8 % [facility] Lymphocytes Abs 1.1 0.9 - 3.2 x10(3)/mc L [facility] Monocyte % 6.7 % [facility] Monocyte Abs 1.9(H) 0.3 - 0.9 x10(3)/mc L [facility] Eos % 0.1 % [facility] Eosinophils Abs 0.0 0.0 - 0.4 x10(3)/mc L [facility] Basophil % 0.2 % [facility] Baso Absolute 0.1 0.0 - 0.1 x10(3)/mc L [facility] Immature Gran % 5.40 % [facility] Comment: Immature granulocytes(IG's)percentage and absolute count will include metamyelocytes, myelocytes, and promyelocytes. Blood smears from CBCs yielding IG's will be scanned manually for concordance. If this scan disagrees with the automated IG or if promyelocytes are noted, a manual differential will be performed. Immature Gran Absolute 1.54(H) 0.00 - 0.04 x10(3)/mc L [facility] Blood 10/25/2023 7:58 AM EST 10/25/2023 8:11 AM EST Narrative Resulting Agency Comment Spec In Lab Cheyanne Lemon MD HEMATOLOGY ORDERABL ES Performing Organization Address City/[facility]/ZIP Co de Phone Number [facility] [place] [address] * (ABNORMAL) Hemogram (10/25/2023 7:58 AM EST) White Blood Cell 28.4(H) 4.0 - 9.5 x10(3)/mc L [facility] Red Blood Cell 3.76(L) 4.58 - 5.54 x10(6)/mc L [facility] Hemoglobin 11.2(L) 13.7 - 16.5 g/dL [facility] Hematocrit 32.9(L) 40.5 - 48.5 % [facility] Mean Cell Volume 87.5 82.9 - 93.1 fL [facility] Mean Cell Hemoglobin 29.8 27.5 - 32.1 pg [facility] Mean Cell Hemoglobin Concentration 34.0 32.0 - 35.7 g/dL [facility] Platelet 168 145 - 357 x10(3)/mc L [facility] RDW Standard Deviation 44.8 36.0 - 45.0 fL [facility] RDW coefficient of variation 14.0(H) 11.4 - 13.8 % [facility] Mean Platelet Volume 11.3 7.6 - 12.9 fL [facility] NRBC% auto 0.0 % [facility] NRBC Absolute 0.000 0.000 - 0.000 x10(3)/ L [facility] Blood 10/25/2023 7:58 AM EST 10/25/2023 8:11 AM EST Narrative Resulting Agency Comment Spec In Lab Cheyanne Lemon MD HEMATOLOGY ORDERABL ES Performing Organization Address City/State/[facility] Co de Phone Number [facility] [place] [address] * (ABNORMAL) Basic Metabolic Panel (non-fasting) (10/25/2023 7:58 AM EST) Glucose 101 65 - 199 mg/dL [facility] Comment:Diabetes: >=200 mg/d L plus symptoms Blood Urea Nitrogen 26(H) 10 - 20 mg/dL [facility] Creatinine 1.11 0.80 - 1.50 mg/dL [facility] Sodium 136 135 - 145 mmol/L [facility] Potassium 4.0 3.5 - 5.0 mmol/L [facility] Comment: Please note: ??Patients with WBC >100,000 may have falsely elevated Potassium levels. ??For accurate Potassium quantification in these patients send serum separator tube (gold top) for subsequent determinations. ??Contact the Clinical Chemistry Laboratory if there are any questions. Chloride 105 98 - 107 mmol/L [facility] Carbon Dioxide 14(L) 22 - 31 mmol/L [facility] Anion Gap 17(H) 5 - 15 mmol/L [facility] Calcium 8.5 8.5 - 10.5 mg/dL [facility] Est Glomerular Filtration Rate 78 >=60 mL/min/1. 73 m?? [facility] Comment: This patient's estimated GFR [...] MD CHEMISTRY ORDERABLE S Performing Organization Address City/State/[facility] Co de Phone Number [facility] [place] [address] documented in this encounter Visit Diagnoses Diagnosis [...] Kathy 11/05/23 at 1999, Last dose on [place] 11/08/23 at 1999, Administer over 4 Hours, [...] Routine documented in this encounter Care Teams Formal Waiter/Waitress Relationship Specialty Start Date End Date Genevieve Baez MD [address] [place] [address] PCP - General Family Medicine 07/22/23 documented as of this encounter
--- OUTSIDE RECORDS SUMMARY | 2024-11-04 00:25 | XMS_ITS | Encounter Summary ---
Author Organization [facility] [place] [address] Care Team Providers Care Irrigation District Manager Name Role Phone Genevieve Baez MD Primary Care Provider [phone] Encounter Details Date Type Department Care Team (Late st Contact Info) Description 11/06/2023 [place] [address] Jordana Canchola MD Social History Tobacco Use Types Packs/Day Years Used Date Smoking Tobacco: Never Smokeless Tobacco: Never Alcohol Use Standard Drinks/Week Comments Never 0 (1 standard drink = 0.6 oz pur e alcohol) [facility] Utilities Answer Date Recorded In the past 12 months has [employer], gas, oil, or water [employer] threatened to shut off services in your [...] s/p stent placement on 10/25/23. Requested Urology hospice patient care secretary to make appointment with Dr. Perez on 11/16/23 to discuss treatment of large burden stone. documented in this encounter Plan of Treatment Not on file documented as of this encounter Visit Diagnoses Not on filedocumented in this encounter Care Teams Irrigation District Manager Relationship Specialty Start Date End Date Genevieve Baez MD [address] [place] [address] PCP - General Family Medicine 07/22/23 documented as of this encounter
--- OUTSIDE RECORDS SUMMARY | 2024-11-04 00:25 | XMS_ITS | Encounter Summary ---
Author Organization [facility] Address [facility] [place] [address] Care Team Providers Care Harp Regulator Name Role Phone Genevieve Baez MD Primary Care Provider [phone] Reason for Visit * Auth/Cert (Routine) Specialty Diagnoses / Procedures Referred By Contac t Referred To Contact Diagnoses Septic shock Sepsis/Obstructive stone Procedures Emergency IPI Yoel Sethi Jr., MD [facility] [place] [address] [facility] Referral ID Status Reason Start Date Expiration Date Visits Re quested Visits Authorized [id number] 1 1 Encounter Details Date Type Department Care Team (Late st Contact Info) Description 10/25/2023 10:44 AM EST - 10/25/2023 11:59 PM EST Hospital Encounter [facility] [address] [place] [id number] Shoaib Barr MD [address] [place] [address] Discharge Disposition: Home Social History Tobacco Use [...] - See Instructions). FLUSH PROTOCOL WITH MEDICATIONS ([facility]): Before med infusion: flush with NS 10 [...] - See Instructions). FLUSH PROTOCOL WITH MEDICATIONS ([facility]): Before med infusion: flush with NS 10 [...] future testing is required, contact the Microbiology Oil Well Cable Tool Driller. (A) [facility] Gram Stain Aerobic Growth detected in aerobic bottle. Gram Negative Rods seen Results called to and read back by Jose (Femi) [facility] Organism Pseudomonas aeruginosa(A) [facility] Organism Gram Negative Rods(A) [facility] Blood 10/24/2023 8:57 PM EST 10/25/2023 [...] Shoaib Barr MD MICROBIOLOGY - BLOOD ORDERABLES [facility] [place] [address] * (ABNORMAL) Urine culture (10/24/2023 8:57 PM EST) Urine Culture Greater than 100,000 cfu/ml Proteus mirabilis Greater than 100,000 cfu/ml Pseudomonas aeruginosa (A) [facility] Organism Proteus mirabilis(A) [facility] Organism Pseudomonas aeruginosa(A) [facility] Urine 10/24/2023 8:57 PM EST 10/25/2023 [...] METHOD Sensitive Shoaib Barr MD MICROBIOLOGY - [facility] AL ORDERABLES Performing Organization Address City/State/[facility] [place] [address] documented in this encounter Visit Diagnoses Not on filedocumented in this encounter Care Teams Harp Regulator Relationship Specialty Start Date End Date Genevieve Baez MD [address] [place] [address] PCP - General Family Medicine 07/22/23 documented as of this encounter
--- OUTSIDE RECORDS SUMMARY | 2024-11-04 00:25 | XMS_ITS | Encounter Summary ---
Author Organization [facility] [place] [address] Care Team Providers Care Geothermal Plant Manager Name Role Phone Genevieve Baez MD Primary Care Provider [phone] Reason for Visit * Auth/Cert (Routine) Specialty Diagnoses / Procedures Referred By Contmadan t Referred To Contact Diagnoses Septic shock Sepsis/Obstructive stone Procedures Emergency IPI Yoel Sethi Jr., MD [facility] [place] [address] [facility] Referral ID Status Reason Start Date Expiration Date Visits Re quested Visits Authorized [id number] 1 1 Encounter Details Date Type Department Care Team (Late st Contact Info) Description 10/25/2023 8:08 AM EST Anesthesia Event [place] [address] Jude Tang MD Sohnen, Samantha, MD Anesthesia Record Procedure Summary Procedure Name Responsible [...] gastrostomy); LUQ (left upper quadrant); feeding; 20 Turkish ; 03/17/24; 1606 (not present upon assessment) [...] by Margarita Loomis RN PIV 10/25/23; 0600; [id number] catheter system; 18 gauge; median cubital vein [...] Jude Tang MD 10/25/23 0945 by Gustavo Gilbert, RN Arterial Line 10/25/23; 0824; radi al artery, left; 20 gauge; Guidewire, Ultrasound Guidance; Yes - US guidance used but Image NOT saved; continuous blood pressure monitoring, frequent blood gas measurement; Sterile Prep, Sterile Gloves; 10/25/23; 1015 10/25/23 0824 by Jude Tang MD 10/25/23 1015 by Gustavo Gilbert, RN documented in this encounter Social History [...] Procedure Summary Date: 10/25/23 Room / Location: [facility] OR [address] [place] [address] MAIN OR Anesthesia Start: 807 Anesthesia Stop: 1000 Procedures: CYSTO, STENT PLACEMENT [...] mL/hr documented in this encounter Care Teams Geothermal Plant Manager Relationship Specialty Start Date End Date Genevieve Baez MD [address] [place] [address] PCP - General Family Medicine 07/22/23 documented as of this encounter
--- OUTSIDE RECORDS SUMMARY | 2024-11-04 00:26 | XMS_ITS | Encounter Summary ---
[place] [address] Care Team Providers Care Crosscutter Name Role Phone Lauri Dallas MD Primary Care Provider [phone] Encounter Details Date Type Department Care Team (Late st Contact Info) Description 07/01/2022 1:45 PM EDT Office [place] [phone] Lucie Reilly RN S/P C4-T2 PSIF for [...] Plan to obtain imaging and labs from [facility] Change position every 1-2 hours While in [...] with any above symptoms Thursday- Thursday 8:00AM-4:30PM ([phone]). If weekends / holidays / evenings, please [...] complete a four-week course. Readmitted to [facility] on 09/01/21and discharged home December 2021. Patient is now at home with home health care. [facility] [place] Gel cushion in wheelchair Home Health Agency: [facility] Pertinent labs/tests: No recent labwork or imaging in eDH MRI done at [facility] of left ischial area on 03/07/22 ROS: Negative for constitutional symptoms Appetite: fair, has tuvaluan for breakfast, couple of candy bars during [...] epithelial along edges with epibole Moderate serous Helper, no increased warmth Maceration noted to wound [...] in a prolonged hospitalization here at [facility] until the beginning of November. His course has been complicated by chronicsacral wounds with soft tissue infection(s) and osteo, neurogenic bladder requiring a suprapubic catheter c/b recurrent urinary tract infections, and chronic constipation requiring ostomy. He was hospitalized from 07/06/21-08/02/21 at [facility] with chronic recurrent multifocal osteomyelitis for which he has been treated multiple times with ciprofloxacin, vancomycin and zosyn. He was discharged home for two weeks of oral augmentin and bactrim to complete a four-week course. Readmitted to [facility] on 09/01/21and discharged home December 2021. [...] chills. 02/24/22 MRI Pelvis W/Wo contrast at [facility]. Per report, it showed a pressure ulcer [...] since his cushion was pressure mapped. Last [facility] ID follow-up [id number]. Plan to arrange for updated pressure mapping with Dennis Trinidad OT (07/18) and schedule an evaluation with plastic surgeon Dr. Rodrigo Good (07/21/22 to discuss potential surgical closure options once adequately offloaded and adequate nutritional parameters are met. Of note, He was admitted overnight at [facility] 06/26-06/27 for reports of stool coming from [...] performed locally)-not sure what labs done by [facility] providers Plan to schedule updated Pressure mapping [...] with any above symptoms Thursday- Thursday 8:00AM-4:30PM ([phone]). If weekends / holidays / evenings, please [...] unspecified documented in this encounter Care Teams Crosscutter Relationship Specialty Start Date End Date Lauri Dallas MD PCP - General Family Medicine 02/19/22 07/21/23 documented as of this encounter
--- OUTSIDE RECORDS SUMMARY | 2024-11-04 00:26 | XMS_ITS | Encounter Summary ---
[place] [address] Care Team Providers Care Senior Web Engineer Name Role Phone Genevieve Baez MD Primary Care Provider [phone] Encounter Details Date Type Department Care Team (Latest Contact Info) Description 10/25/2023 4:46 AM EST - 10/25/2023 5:46 AM EST Hospital [place] [address] Alfonso Brian MD [facility] [place] [place] [address] Discharge Disposition: Home Social History Tobacco Use [...] - See Instructions). FLUSH PROTOCOL WITH MEDICATIONS ([facility]): Before med infusion: flush with NS [...] - See Instructions). FLUSH PROTOCOL WITH MEDICATIONS ([facility]): Before med infusion: flush with NS [...] filedocumented in this encounter Care Teams Senior Web Engineer Relationship Specialty Start Date End Date Genevieve Baez MD [address] [place] [address] PCP - General Family Medicine 07/22/23 documented as of this encounter
--- OUTSIDE RECORDS SUMMARY | 2024-11-04 00:26 | XMS_ITS | Encounter Summary ---
Author Organization [facility] [place] [address] Care Team Providers Care Derrick Hand Name Role Phone Genevieve Baez MD Primary Care Provider Reason for Visit * Consultation (Routine) - Closed Specialty Diagnoses / Procedures Referred By Contac t Referred To Contact Infectious Diseases Diagnoses Osteomyelitis, unspecified site, unspecified type Genevieve Baez MD [address] [place] [address] [facility] Infectious Dis [address] [place] [id number] Referral ID Status Reason Start Date Expiration Date V isits Requested Visits Authorized [id number] Closed Consult, Test & Treat PCP Updated and/or Approved 07/22/2023 07/21/2024 12 12 Encounter Details Date Type Department Care Team (Latest Contact Info) Description 08/18/2023 2:20 PM EDT TH Visit (TeleHealth) [place] [address] Rayna Kendrick MD [facility] [place] [address] DH PATIENT NOT SEEN Social [...] as of this encounter Progress Notes * Rayna Kendrick MD - 08/18/2023 2:20 PM EDT Patient no showed for this visit. documented in this encounter Plan of Treatment Scheduled Referrals Name Type Priority Associated Diagnoses Order Schedule Referral to Infectious Disease and [facility] Outpatient Referral Routine Osteomyelitis, unspecified site, unspecified type Ordered: 07/22/2023 documented as of this encounter Visit Diagnoses Diagnosis DH PATIENT NOT SEEN documented in this encounter Care Teams Derrick Hand Relationship Specialty Start Date End Date Genevieve Baez MD [address] [place] [address] PCP - General Family Medicine 07/22/23 documented as of this encounter
--- OUTSIDE RECORDS SUMMARY | 2024-11-04 00:26 | XMS_ITS | Encounter Summary ---
[place] [address] Care Team Providers Care Male Infertility Specialist Name Role Phone Genevieve Baez MD Primary Care Provider [phone] Encounter Details Date Type Department Care Team (Late st Contact Info) Description 10/24/2023 Interpretation Only [facility] [address] [place] [address] Shoaib Barr MD [address] [place] [address] Social History Tobacco Use Types [...] EST) PT CLASS E DH RAD ADMITDTTM [id number] DH RAD PT RAD INFO [id number]^Cortney^ Shoaib RAD EXAM DESC CTHEAD^CT Head w/o [...] who have questions please contact the health women's health care nurse practitioner that requested your imaging first. ? Narrative [...] patients who have questions please contactthe health women's health care nurse practitioner that requested your imaging first. Shoaib Barr MD IMG CT ORDERABLES documented in this encounter Visit Diagnoses Not on filedocumented in this encounter Care Teams Male Infertility Specialist Relationship Specialty Start Date End Date Genevieve Baez MD [address] [place] [address] PCP - General Family Medicine 07/22/23 documented as of this encounter
--- OUTSIDE RECORDS SUMMARY | 2024-11-04 00:26 | XMS_ITS | Encounter Summary ---
Author Organization [facility] [place] [address] Care Team Providers Care Pulmonology Physician Name Role Phone Lauri Dallas MD Primary Care Provider [phone] Encounter Details Date Type Department Care Team (Late st Contact Info) Description 08/04/2022 9:15 AM EDT Office [place] [address] Rodrigo Lopez MD [facility] [address] PLASTIC [place] [address] Pressure injury of left buttock, stage 4 [...] with odor prior to cleansing and greentinge Sigurd, no increased warmth ?? Maceration noted to [...] Rate Automated 34 2 - 37 mm/hr [facility] Comment: Effective October 12, 2019 new capillary photometric technology has resulted in a change in reference ranges. It is recommended that each ESR result be reviewed with its own age appropriate reference range. Blood 08/04/2022 10:5 1 AM EDT 08/04/2022 11:25 AM EDT Narrative Resulting Agency Comment Spec In Lab Rodrigo Lopez MD HEMATOLOGY ORDERABLE S [facility] [place] [address] * (ABNORMAL) CRP, acute inflammation (08/04/2022 10:51 AM EDT) C-Reactive Protein 13.9(H) <=4.9 mg/L [facility] Blood 08/04/2022 10:5 1 AM EDT 08/04/2022 11:25 AM EDT Narrative Resulting Agency Comment Spec In Lab Rodrigo Lopez MD CHEMISTRY ORDERABLES [facility] [place] [address] documented in this encounter Visit Diagnoses Diagnosis Pressure injury of left buttock, stage 4 documented in this encounter Care Teams Pulmonology Physician Relationship Specialty Start Date End Date Lauri Dallas MD PCP - General Family Medicine 02/19/22 07/21/23 documented as of this encounter
--- OUTSIDE RECORDS SUMMARY | 2024-11-04 00:26 | XMS_ITS | Encounter Summary ---
[place] [address] Care Team Providers Care Monkey Trainer Name Role Phone Genevieve Baez MD Primary Care Provider [phone] Reason for Referral * Consultation (Routine) - Closed Specialty Diagnoses / Procedures Referred By Contac t Referred To Contact Infectious Diseases Diagnoses Osteomyelitis, unspecified site, unspecified type Genevieve Baez MD [address] [place] [address] [facility] Infectious Dis [address] [place] [phone] Referral ID Status Reason Start Date Expiration Date V isits Requested Visits Authorized [id number] Closed Consult, Test & Treat PCP Updated and/or Approved 07/22/2023 07/21/2024 12 12 Encounter Details Date Type Department Care Team (Latest Contact Info) Description 07/22/2023 Transcribe Orders eDH Incoming Referrals [phone] Genevieve Baez MD [address] [place] [address] Osteomyelitis, unspecified site, unspecified type [...] Order Schedule Referral to Infectious Disease and [facility] Outpatient Referral Routine Osteomyelitis, unspecified site, unspecified type Ordered: 07/22/2023 documented as of this encounter Visit Diagnoses Diagnosis Osteomyelitis, unspecified site, unspecified type documented in this encounter Care Teams Monkey Trainer Relationship Specialty Start Date End Date Genevieve Baez MD [address] [place] [address] PCP - General Family Medicine 07/22/23 documented as of this encounter
--- OUTSIDE RECORDS SUMMARY | 2024-11-04 00:26 | XMS_ITS | Encounter Summary ---
[place] [address] Care Team Providers Care Prototype Assembler Electronics Name Role Phone Lauri Dallas MD Primary Care Provider [phone] Encounter Details Date Type Department Care Team (Late st Contact Info) Description 07/18/2022 1:45 PM EDT Office [place] [id number] Nasra Peña RN Pressure injury of left [...] with any above symptoms Thursday- Thursday 8:00AM-4:30PM ([phone]). If weekends / holidays / evenings, please report to the Emergency Department. High Protein foods: try to eat 5-6 servings of these per day Beef, chicken, fish Beans, Lentils, peanut butter South Korean and regular yogurt Cheese, eggs Boost, Ensure [...] integrity Degradation of internal components lifespan per site manager documented in this encounter Progress Notes * [...] HTN. ??He was hospitalized from 07/06/21-08/02/21 at [facility] with chronic recurrent multifocal osteomyelitis for which he has been treated multiple times with ciprofloxacin, vancomycin and zosyn. ??He was discharged home for two weeks of oral augmentin and bactrim to complete a four- week course. Readmitted to [facility] on 09/01[facility]21anddischarged home December 2021. Patient is now at home with home health care. December 2020-[facility] [place]. Gel cushion in wheelchair Diagnostics: No recent labwork or imaging in eDH MRI done at [facility] of left ischial area on 03/07/22 Type of Wound: Pressure injury Home Health Agency: Yes [facility] Subjective: Patient denies fever, chills, [...] layer of tissue covering bone. Moderate serous [place], no increased warmth ?? Maceration noted to [...] patient will follow up here at the [facility] on Thursday and will be seen [...] with any above symptoms Thursday- Thursday 8:00AM-4:30PM ([phone]). If weekends / holidays / evenings, please report to the Emergency Department. High Protein foods: try to eat 5-6 servings of these per day Beef, chicken, fish Beans, Lentils, peanut butter South Korean and regular yogurt Cheese, eggs Boost, Ensure [...] integrity Degradation of internal components lifespan per site manager Supplies to be ordered: documented in this encounter Plan of Treatment Not on file documented as of this encounter Visit Diagnoses Diagnosis Pressure injury of left ischium, stage 4 documented in this encounter Care Teams Prototype Assembler Electronics Relationship Specialty Start Date End Date Lauri Dallas MD PCP - General Family Medicine 02/19/22 07/21/23 documented as of this encounter
--- OUTSIDE RECORDS SUMMARY | 2024-11-04 00:26 | XMS_ITS | Encounter Summary ---
[place] [address] Care Team Providers Care Purchasing Supervisor Name Role Phone Lauri Dallas MD Primary Care Provider Encounter Details Date Type Department Care Team (Late st Contact Info) Description 07/18/2022 2:00 PM EDT Office [place] [address] Jeff Trinidad, OT [facility] PHYSICAL MEDICINE & [place] [address] S/P C4-T2 PSIF for C6-7 bilateral facet [...] minutes TIMED CODE TREATMENT TIME: Wheelchair Management (32283) 30 min Objective: Bruce Velasquez Jr. is [...] his head appropriately. He plans to contact [facility] to have this modified so that hehas head support. Plan: There is no further indication for OT services at this time. He will contact [facility] to have his headrest adjusted documented in this encounter Plan of Treatment Not on file documented as of this encounter Visit Diagnoses Diagnosis S/P C4-T2 PSIF for C6-7 bilateral facet dislocation 10/27/20 Dr. Tong Arthrodesis status Pressure injury of left buttock, stage 4 documented in this encounter Care Teams Purchasing Supervisor Relationship Specialty Start Date End Date Lauri Dallas MD PCP - General Family Medicine 02/19/22 07/21/23 documented as of this encounter
--- OUTSIDE RECORDS SUMMARY | 2024-11-04 00:26 | XMS_ITS | Encounter Summary ---
Author Organization [facility] Address [facility] [place] [address] Care Team Providers Care Production Team Leader Name Role Phone Lauri Dallas MD Primary Care Provider [phone] Encounter Details Date Type Department Care Team (Latest Contact Info) Description 07/21/2022 9:00 AM EDT Office [place] [address] Rodrigo Lopez MD [facility] [place] [address] S/P C4-T2 PSIF for C6-7 bilateral facet [...] HTN. ??He was hospitalized from 07/06/21-08/02/21 at [facility] with chronic recurrent multifocal osteomyelitis for which he has been treated multiple times with ciprofloxacin, vancomycin and zosyn. ??He was discharged home for two weeks of oral augmentin and bactrim to complete a four-week course. Readmitted to [facility] on 09/01/21and discharged home December 2021. Patient is now at home with home health care. December 2020-[facility] [place]. Gel cushion in wheelchair. No past medical history on file. Past Surgical History: Procedure Laterality Date ??? PRO ALLOGRAFT FOR SPINE SURGERY ONLY MORSELIZED N/A 10/27/2020 ALLOGRAFT FOR SPINE SURGERY ONLY; MORSELIZED (WRVU *) performed by Robbin Tong MD at [facility] MAIN OR ??? PRO APPLY/REMOVE CRANIAL FIX DEV N/A 10/27/2020 PLACEMENT-CRANIAL TONGS (INCLUDING REMOVAL) (WRVU 4) performed by Robbin Tong MD at [facility] JOSIANE ??? PRO ARTHRODESIS POSTERIOR/PSTLAT TECH 1 INTERSPACE LUMBAR, EA ADD'L INTERSPACE N/A 10/27/2020 ARTHRODESIS, POSTERIOR VERTEBRAL EA.ADD. SEGMENT (WRVU 6.43) performed by Robbin Tong MD at [facility] MAIN OR ??? PRO ARTHRODESIS, POST/POSTEROLAT TQ, SNGLE INTERSPACE; CERVICAL BELOW C2 SEGMNT Midline 10/27/2020 @ARTHRODESIS, POSTERIOR CERVICAL SPINE (WRVU 17.4) performed by Robbin Tong MD at [facility] MAIN OR ??? PRO AUTOGRAFT SPINE SURGERY LOCAL FROM SAME INCISION N/A 10/27/2020 AUTOGRAFT FOR SPINE SURGERY ONLY, SAME INCISION (WRVU *) performed by Robbin Tong MD at [facility] MAIN OR ??? PRO OPEN POST TREAT CERV VERT FX, 1 LVL N/A 10/27/2020 @OPEN TREATMENT &/OR REDUCTION VERTEBRAL FX., CERVICAL (WRVU 20.84) performed by Rosa Tong MD at [facility] MAIN OR ??? PRO PLACE PERCUT GASTROSTOMY TUBE N/A 11/05/2020 ENDOSCOPY W DIRECTED PLACEMENT PERCUTANEOUS GASTROSTOMY TUBE-PEG (WRVU 3.66) performed by Yoel Medellin MD at [facility] MAIN OR ??? PRO POSTERIOR SEGMENTAL INSTRUMENTATION 3-6 VRT SEG N/A 10/27/2020 POST SPINAL INSTRUMENTATION, 3-6 VERTEBRA, NON SEGMENTAL (WRVU 12.56) performed by Robbin Tong MD at [facility] MAIN OR Social History Socioeconomic History [...] Ag ribbon. 2. Obtain recent labs from [facility]. 3. Follow up with for coordinated [...] osteomyelitis documented in this encounter Care Teams Production Team Leader Relationship Specialty Start Date End Date Lauri Dallas MD PCP - General Family Medicine 02/19/22 07/21/23 documented as of this encounter
--- OUTSIDE RECORDS SUMMARY | 2024-11-04 00:26 | XMS_ITS | Encounter Summary ---
[place] [address] Care Team Providers Care Pest Management Supervisor Name Role Phone Lauri Dallas MD Primary Care Provider [phone] Encounter Details Date Type Department Care Team (Late st Contact Info) Description 08/04/2022 Telephone [place] [address] Amelia Rm LPN Social History [...] on filedocumented in this encounter Care Teams Pest Management Supervisor Relationship Specialty Start Date End Date Lauri Dallas MD PCP - General Family Medicine 02/19/22 07/21/23 documented as of this encounter
--- OUTSIDE RECORDS SUMMARY | 2024-11-04 00:26 | XMS_ITS | Encounter Summary ---
[place] [address] Care Team Providers Care Hat Block Bench Hand Name Role Phone Lauri Dallas MD Primary Care Provider [phone] Encounter Details Date Type Department Care Team (Late st Contact Info) Description 07/21/2022 9:00 AM EDT Office [place] [phone] Lucie Reilly RN Pressure injury of left [...] complete a four- week course. Readmitted to [facility] on 09/01/21anddischarged home December 2021. Patient is now at home with home health care. December 2020-[facility] [place]. Gel cushion surface in wheelchair Diagnostics: No recent labwork or imaging in eDH (reports some labs done at [facility] beginning of July 2022) MRI done at [facility] of left ischial area on 03/07/22 Type of Wound: Pressure injury Home Health Agency: [facility] Subjective: Patient denies fever, chills, [...] layer of tissue covering bone. Moderate serous [place], no increased warmth ?? Maceration noted to [...] patient will follow up here at the [facility] in [address] Good [...] order) Group 1 Mattress overlay or mattress ([id number], [id number], [id number]) is covered in the patient meets: [...] with any above symptoms Thursday- Thursday 8:00AM-4:30PM ([phone]). If weekends / holidays / evenings, please report to the Emergency Department. High Protein foods: try to eat 5-6 servings of these per day Beef, chicken, fish Beans, Lentils, peanut butter Amharic and regular yogurt Cheese, eggs Boost, Ensure [...] integrity Degradation of internal components lifespan per funeral professional Supplies to be ordered: documented in this encounter Plan of Treatment Not on file documented as of this encounter Visit Diagnoses Diagnosis Pressure injury of left ischium, stage 4 S/P C4-T2 PSIF for C6-7 bilateral facet dislocation 10/27/20 Dr. Tong Arthrodesis status Quadriplegia Quadriplegia, unspecified Chronic recurrent multifocal osteomyelitis Impaired mobility Other ill-defined conditions documented in this encounter Care Teams Hat Block Bench Hand Relationship Specialty Start Date End Date Lauri Dallas MD PCP - General Family Medicine 02/19/22 07/21/23 documented as of this encounter
--- OUTSIDE RECORDS SUMMARY | 2024-11-04 00:26 | XMS_ITS | Encounter Summary ---
[place] [address] Care Team Providers Care Legal Internship Name Role Phone Lauri Dallas MD Primary Care Provider [phone] Encounter Details Date Type Department Care Team (Late st Contact Info) Description 06/13/2022 1:00 PM EDT Office Visit [place] [phone] Lucie Reilly RN S/P C4-T2 PSIF for [...] drainage (thick yellow/green drainage) Mal[place] Contact the [facility] with any above symptoms Thursday- Thursday 8:00AM-4:30PM ([phone]). If weekends / holidays / evenings, please report to the Emergency Department. High Protein foods: try to eat 5-6 servings of these per day Beef, chicken, fish Beans, Lentils, peanut butter Kenyan and regular yogurt Cheese, eggs Boost, Ensure shakes Protein powder in a smoothie of your choice documented in this encounter Progress Notes * Lucie Reilly RN - 06/13/2022 1:00 PM EDT Images from the original note were not included. [facility] Progress Note Chief Complaint: [...] HTN. He was hospitalized from 07/06/21-08/02/21 at [facility] with chronic recurrent multifocal osteomyelitis for which he has been treated multipl e times with ciprofloxacin, vancomycin and zosyn. He was discharged home for two weeks of oral augmentin and bactrim to complete a four-week course. Readmitted to [facility] on 09/01/21and discharged home December 2021. Patient is now at home with home health care. December 2020-Pressure mapped at [facility] in [place]. Gel cushion in wheelchair Home Health Agency: [facility] Pertinent labs/tests: No recent labwork or imaging in eDH MRI done at [facility] of left ischial area on 03/07/22 ROS: Negative for constitutional symptoms Appetite: fair, has telugu for breakfast, couple of candy bars during [...] epithelial along edges with epibole Moderate serous [place], no increased warmth Maceration noted to wound [...] resulting in a prolonged hospitalization here at [facility] until the beginning of November. His course has been complicated by chronic sacral wounds with infection and ?osteo, neurogenic bladder requiring a suprapubic catheter c/b recurrent urinary tract infections, and chronic constipation requiring ostomy. He was hospitalized from 07/06/21-08/02/21 at [facility] with chronic recurrent multifocal osteomyelitis for which he has been treated multiple times with ciprofloxacin, vancomycin and zosyn. He was dis charged home for two weeks of oral augmentin and bactrim to complete a four-week course. [facility] on [facility]/21and discharged home December [...] chills. 02/24/22 MRI Pelvis W/Wo contrast at [facility]. Per report, it showed a pressure [...] regarding this). They are currently using the [facility] pharmacy out of the [facility], phone number is . Per the pharmacy[place] supplemental drinks. [...] since his cushion was pressure mapped. Last [facility] follow-up was 09/2001. [...] with any above symptoms Thursday- Thursday 8:00AM-4:30PM ([phone]). If weekends / holidays / evenings, please [...] osteomyelitis documented in this encounter Care Teams Legal Internship Relationship Specialty Start Date End Date Lauri Dallas MD PCP - General Family Medicine 02/19/22 07/21/23 documented as of this encounter
--- OUTSIDE RECORDS SUMMARY | 2024-11-04 00:26 | XMS_ITS | Encounter Summary ---
[place] [address] Care Team Providers Care Facilities Maintenance Supervisor Name Role Phone Lauri Dallas MD Primary Care Provider [phone] Reason for Visit * Reason Comments Wound Check Encounter Details Date Type Department Care Team (Late st Contact Info) Description 08/04/2022 9:00 AM EDT Office [place] [address] Nasra Peña RN Pressure injury of left [...] HTN. ??He was hospitalized from 07/06/21-08/02/[address] [facility] with chronic recurrent multifocal osteomyelitis for which he has been treated multiple times with ciprofloxacin, vancomycin and zosyn. ??He was discharged home for two weeks of oral augmentin and bactrim to complete a four- week course. Readmitted to [facility] on 09/01/21anddischarged home December 2021. Patient is now at home with home health care. December 2020-Pressure mapped at [facility] in [place]. Gel cushion surface in wheelchair Diagnostics: No recent labwork or imaging in eDH (reports some labs done at [facility] beginning of July 2022) MRI done at [facility] of left ischial area on 03/07/22 Type of Wound: Pressure injury Home Health Agency: Yes [facility] Subjective: Patient denies fever, chills, [...] with odor prior to cleansing and greentinge [place], no increased warmth ?? Maceration noted to [...] pending insurance coverage -patient needs to contact [facility] for wheelchair modifications as the back rest seems to be tilted to the left and the head rest is not in alignment -PT/OT to evaluate for group 2 mattress/adjustable bed (PCP to write order) Group 1 Mattress overlay or mattress ([id number], [id number], [id number]) is covered in the patient meets: [...] with any above symptoms Thursday- Thursday 8:00AM-4:30PM ([phone]). If weekends / holidays / evenings, please report to the Emergency Department. High Protein foods: try to eat 5-6 servings of these per day Beef, chicken, fish Beans, Lentils, peanut butter Greenlandic and regular yogurt Cheese, eggs Boost, Ensure [...] integrity Degradation of internal components lifespan per time study clerk Plan to evaluate and order a new mattress (alternating air fluidized), pending insurance coverage -patient needs to contact [facility] for wheelchair modifications as the back rest seems to be tilted to the left and the head rest is not in alignment -PT/OT to evaluate for group 2 mattress/adjustable bed (PCP to write order) Group 1 Mattress overlay or mattress ([id number], [id number], [id number]) is covered in the patient meets: [...] 4 documented in this encounter Care Teams Facilities Maintenance Supervisor Relationship Specialty Start Date End Date Lauri Dallas MD PCP - General Family Medicine 02/19/22 07/21/23 documented as of this encounter
--- OUTSIDE RECORDS SUMMARY | 2024-11-04 00:26 | XMS_ITS | Encounter Summary ---
[place] [address] Care Team Providers Care Tripe Scraper Name Role Phone Lauri Dallas MD Primary Care Provider [phone] Encounter Details Date Type Department Care Team (Late st Contact Info) Description 05/20/2022 Telephone [place] [address] Marjan Browning, RN Social History [...] - 05/20/2022 1:44 PM EDTSummarluis carlos: call [facility] called to state that Favio Velasquez would like to start taking the James protein shakes that were discussed at his 04/30/22 visit with Malgorzata Whitfield APRN. They would like for the prescription to be sent to the [facility], phone number is . Routed to provider documented in this encounter Plan of Treatment Not on file documented as of this encounter Visit Diagnoses Not on filedocumented in this encounter Care Teams Tripe Scraper Relationship Specialty Start Date End Date Lauri Dallas MD PCP - General Family Medicine 02/19/22 07/21/23 documented as of this encounter
--- OUTSIDE RECORDS SUMMARY | 2024-11-04 00:26 | XMS_ITS | Encounter Summary ---
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 Procedure Component Value Units Date/Time Blood culture [[id number]] Collected: 11/01/23 1430 Lab Status: Preliminary result Specimen: Blood from Foot, Left Updated: 11/03/23 2301 Blood Culture No growth at 2 days. Blood culture [[id number]] Collected: 11/01/23 1420 Lab Status: Preliminary result Specimen: Blood from Foot, Right Updated: 11/03/23 2301 Blood Culture No growth at 2 days. Blood culture [[id number]] Collected: 10/30/23 1300 Lab Status: Preliminary result Specimen: Blood from Hand, Right Updated: 11/03/23 1502 Blood Culture No growth at 4 days. Blood culture [[id number]] (Abnormal) Collected: 10/30/23 1255 Lab Status: Preliminary [...] Cocci in clusters seen MRSA PCR Screen ([facility]/CGP/APD/NLH) [[id number]] Collected: 10/29/23 0648 Lab Status: Final result Specimen: Nasopharyngeal Swab Updated: 10/29/23 1320 MRSA Result Negative MRSA Interp -- Methicillin-resistant Staphylococcus aureus (MRSA) is NOT DETECTED The MRSA target DNA sequences (mec and SCC) were not detected within the acceptable ranges using the Xpert MRSA NxG on the GeneXpert Dx System ([employer]). This suggests the absence of MRSA in the patient specimen submitted for testing. This test is cleared by the U.S. Food and Drug Administration for clinical use and its performance characteristics have been verified by the [facility] at [facility]. This result does not rule out the presence of any other organisms. Rare false negative results may occur if MRSA is present at low concentrations with much higher concentrations of other organisms including MRSE or S. aureus with an empty SCC cassette. Comment: [VERIFIED DATE]10.29.23 Verified By:Katherine Early (Electronic Signature) Blood culture [[id number]] Collected: 10/28/23 0922 Lab Status: Final result Specimen: Blood from Foot, Left Updated: 11/02/23 1502 Blood Culture No growth at 5 days. Blood culture [[id number]] Collected: 10/28/23 0910 Lab Status: Final result Specimen: Blood from Hand, Right Updated: 11/02/23 1502 Blood Culture No growth at 5 days. Blood culture [[id number]] Collected: 10/25/23 1050 Lab Status: Final result Specimen: Blood Updated: 10/30/23 1501 Blood Culture No growth at 5 days. Blood culture [[id number]] Collected: 10/25/23 1040 Lab Status: Final result Specimen: Blood Updated: 10/30/23 1501 Blood Culture No growth at 5 days. Urine culture Cystoscopic Urine [[id number]] (Abnormal) (Susceptibility) Collected: 10/25/23 0913 Lab Status: [...] Sensitive Penicillin Sensitive Vancomycin Sensitive Urine culture [[id number]] (Abnormal) (Susceptibility) Collected: 10/24/232056 Lab Status: Final [...] using in critically ill patients. Blood culture [[id number]] (Abnormal) (Susceptibility) Collected: 10/24/232056 Lab Status: Final result Specimen: Blood Updated: 10/31/23 0734 Blood Culture -- Pseudomonas aeruginosa detected by PCR Isolate saved. If future testing is required, contact the Microbiology Principal Account Clerk. Gram Stain Aerobic -- Growth detected in [...] regards to his [facility] situation [facility], relationship with his care takers, and [...] this.Called Dr. Molina's office and spoke w/ traffic signal supervisor maintenance 10/30. Awaiting call back 11/03. On 10/31 [...] Egan MD 11/04/2023 [id number] * Maritza Tiwari, WALLPAPERER HELPER - 11/02/2023 9:11 PM EST Respiratory Therapy [...] continue to monitor and support MARITZA TIWARI, WALLPAPERER HELPER * Amelia Caputo, RT - 11/02/2023 4:51 [...] a hospital length of stay nutrition evaluation. Personal Driver met with pt at bedside. He reports that his appetite is okay and that he eats as much of his meals as he can but sometimesis too fatigued to finish d/t difficulty breathing. Personal Driver discussed ways to manage fatigue while eating [...] questions answered at this time Abdifatah Briseno, Primary Teacher * Adam Rapp MD - 11/02/2023 9:06 AM EST Images from the original note were not included. Urology Progress Note Patient: Nighat Barrios : 1965 Room: [address] Admit date: 10/25/2023 Attending: Yessi Lopes [...] care provider that requested your imaging first. - CT [...] Procedure Component Value Units Date/Time Blood culture [[id number]] Collected: 10/30/23 1300 Lab Status: Preliminary result Specimen: Blood from Hand, Right Updated: 11/01/23 1502 Blood Culture No growth at 2 days. Blood culture [[id number]] (Abnormal) Collected: 10/30/23 1255 Lab Status: Preliminary [...] Cocci in clusters seen MRSA PCR Screen ([facility]/CGP/APD/NLH) [[id number]] Collected: 10/29/23 0648 Lab Status: Final result Specimen: Nasopharyngeal Swab Updated: 10/29/23 1320 MRSA Result Negative MRSA Interp -- Methicillin-resistant Staphylococcus aureus (MRSA) is NOT DETECTED The MRSA target DNA sequences (mec and SCC) were not detected within the acceptable ranges using the Xpert MRSA NxG on the [employer] Dx System ([employer]). This suggests the absence of MRSA in the patient specimen submitted for testing. This test is cleared by the U.S. Food and Drug Administration for clinical use and its performance characteristics have been verified by the Clinical [employer] [facility] at [facility]. This result does not rule out the presence of any other organisms. Rare false negative results may occur if MRSA is present at low concentrations with much higher concentrations of other organisms including MRSE or S. aureus with an empty SCC cassette. Comment: [VERIFIED DATE]10.29.23 Verified By:Katherine Early (Electronic Signature) Blood culture [[id number]] Collected: 10/28/23 0922 Lab Status: Preliminary result Specimen: Blood from Foot, Left Updated: 11/01/23 1501 Blood Culture No growth at 4 days. Blood culture [[id number]] Collected: 10/28/23 0910 Lab Status: Preliminary result Specimen: Blood from Hand, Right Updated: 11/01/23 1501 Blood Culture No growth at 4 days. Blood culture [[id number]] Collected: 10/25/23 1050 Lab Status: Final result Specimen: Blood Updated: 10/30/23 1501 Blood Culture No growth at 5 days. Blood culture [[id number]] Collected: 10/25/23 1040 Lab Status: Final result Specimen: Blood Updated: 10/30/23 1501 Blood Culture No growth at 5 days. Urine culture Cystoscopic Urine [[id number]] (Abnormal) (Susceptibility) Collected: 10/25/23 0913 Lab Status: [...] Sensitive Penicillin Sensitive Vancomycin Sensitive Urine culture [[id number]] (Abnormal) (Susceptibility) Collected: 10/24/232056 Lab Status: Final [...] using in critically ill patients. Blood culture [[id number]] (Abnormal) (Susceptibility) Collected: 10/24/232056 Lab Status: Final result Specimen: Blood Updated: 10/31/23 0734 Blood Culture -- Pseudomonas aeruginosa detected by PCR Isolate saved. If future testing is required, contact the Microbiology Principal Account Clerk. Gram Stain Aerobic -- Growth detected in [...] regards to his living situation at [facility], relationship with his care takers, and [...] this.Called Dr. Molina's office and spoke w/ traffic signal supervisor maintenance 10/30. Awaiting call back 11/03. On 10/31 [...] Rapp MD 11/02/2023 [id number] * Maritza Tiwari, WALLPAPERER HELPER - 11/01/2023 9:00 PM EST Respiratory Therapy [...] continue to monitor and support MARITZA TIWARI, WALLPAPERER HELPER * Rosmery Daly MD - 11/01/2023 5:35 [...] care provider that requested your imaging first. SSMENT: Pt [...] as obtain an EKG to ensure no ME. Additionally given that his TTE earlier this [...] Note Patient: Nighat Barrios : 1965 Room: [address] Admit date: 10/25/2023 Attending: Yessi Lopes [...] (porcine) 5,000 Units Subcutaneous Q8H [facility] baclofen 20 mg Oral TID mirabegron ER [...] care provider that requested your imaging first. - CT [...] Procedure Component Value Units Date/Time Blood culture [[id number]] Collected: 10/30/23 1300 Lab Status: Preliminary result Specimen: Blood from Hand, Right Updated: 10/31/23 1501 Blood Culture No growth at 1 day. Blood culture [[id number]] (Abnormal) Collected: 10/30/23 1255 Lab Status: Preliminary [...] Cocci in clusters seen MRSA PCR Screen ([facility]/CGP/APD/NLH) [[id number]] Collected: 10/29/23 0648 Lab Status: Final result Specimen: Nasopharyngeal Swab Updated: 10/29/23 1320 MRSA Result Negative MRSA Interp -- Methicillin-resistant Staphylococcus aureus (MRSA) is NOT DETECTED The MRSA target DNA sequences (mec and SCC) were not detected within the acceptable ranges using the Xpert MRSA NxG on the GeneXpert Dx System ([employer]). This suggests the absence of MRSA in the patient specimen submitted for testing. This test is cleared by the U.S. Food and Drug Administration for clinical use and its performance characteristics have been verified by the [facility] at [facility]. This result does not rule out the presence of any other organisms. Rare false negative results may occur if MRSA is present at low concentrations with much higher concentrations of other organisms including MRSE or S. aureus with an empty SCC cassette. Comment: [VERIFIED DATE]10.29.23 Verified By:Katherine Early (Electronic Signature) Blood culture [[id number]] Collected: 10/28/23 0922 Lab Status: Preliminary result Specimen: Blood from Foot, Left Updated: 10/31/23 1501 Blood Culture No growth at 3 days. Blood culture [[id number]] Collected: 10/28/23 0910 Lab Status: Preliminary result Specimen: Blood from Hand, Right Updated: 10/31/23 1501 Blood Culture No growth at 3 days. Blood culture [[id number]] Collected: 10/25/23 1050 Lab Status: Final result Specimen: Blood Updated: 10/30/23 1501 Blood Culture No growth at 5 days. Blood culture [[id number]] Collected: 10/25/23 1040 Lab Status: Final result Specimen: Blood Updated: 10/30/23 1501 Blood Culture No growth at 5 days. Urine culture Cystoscopic Urine [[id number]] (Abnormal) (Susceptibility) Collected: 10/25/23 0913 Lab Status: [...] Sensitive Penicillin Sensitive Vancomycin Sensitive Urine culture [[id number]] (Abnormal) (Susceptibility) Collected: 10/24/232056 Lab Status: Final [...] using in critically ill patients. Blood culture [[id number]] (Abnormal) (Susceptibility) Collected: 10/24/232056 Lab Status: Final result Specimen: Blood Updated: 10/31/23 0734 Blood Culture -- Pseudomonas aeruginosa detected by PCR Isolate saved. If future testing is required, contact the Microbiology Principal Account Clerk. Gram Stain Aerobic -- Growth detected in [...] regards to his living situation at [facility], relationship with his care takers, and [...] this.Called Dr. Molina's office and spoke w/ traffic signal supervisor maintenance 10/30. Awaiting call back 11/03. On 10/31 [...] KAN Ornelas 11/01/2023 [id number] * Maritza Tiwari, WALLPAPERER HELPER - 10/31/2023 9:15 PM EST Respiratory Therapy [...] turned on his opposite side. Lauri Jovel WALLPAPERER HELPER * Vanesa Rojas RN - 10/31/2023 6:19 [...] Note Patient: Nighat Barrios : 1965 Room: [address] Admit date: 10/25/2023 Attending: Yessi Lopes [...] right upper extremity obscuring part of the hsrgk-la-ympk. Left chest wall subcutaneous port with tip [...] care provider that requested your imaging first. - CT [...] Procedure Component Value Units Date/Time Blood culture [[id number]] (Abnormal) Collected: 10/30/23 1255 Lab Status: Preliminary [...] Cocci in clusters seen MRSA PCR Screen ([facility]/CGP/APD/NLH) [[id number]] Collected: 10/29/23 0648 Lab Status: Final result Specimen: Nasopharyngeal Swab Updated: 10/29/23 1320 MRSA Result Negative MRSA Interp -- Methicillin-resistant Staphylococcus aureus (MRSA) is NOT DETECTED The MRSA target DNA sequences (mec and SCC) were not detected within the acceptable ranges using the Xpert MRSA NxG on the GeneXpert Dx System ([employer]). This suggests the absence of MRSA in the patient specimen submitted for testing. This test is cleared by the U.S. Food and Drug Administration for clinical use and its performance characteristics have been verified by the [facility] at [facility]. This result does not rule out the presence of any other organisms. Rare false negative results may occur if MRSA is present at low concentrations with much higher concentrations of other organisms including MRSE or S. aureus with an empty SCC cassette. Comment: [VERIFIED DATE]10.29.23 Verified By:Katherine Early (Electronic Signature) Blood culture [[id number]] Collected: 10/28/23 0922 Lab Status: Preliminary result Specimen: Blood from Foot, Left Updated: 10/30/23 1501 Blood Culture No growth at 2 days. Blood culture [[id number]] Collected: 10/28/23 0910 Lab Status: Preliminary result Specimen: Blood from Hand, Right Updated: 10/30/23 1501 Blood Culture No growth at 2 days. Blood culture [[id number]] Collected: 10/25/23 1050 Lab Status: Final result Specimen: Blood Updated: 10/30/23 1501 Blood Culture No growth at 5 days. Blood culture [[id number]] Collected: 10/25/23 1040 Lab Status: Final result Specimen: Blood Updated: 10/30/23 1501 Blood Culture No growth at 5 days. Urine culture Cystoscopic Urine [[id number]] (Abnormal) (Susceptibility) Collected: 10/25/23912 Lab Status: Final [...] Sensitive Penicillin Sensitive Vancomycin Sensitive Urine culture [[id number]] (Abnormal) (Susceptibility) Collected: 10/24/232056 Lab Status: Final [...] using in critically ill patients. Blood culture [[id number]] (Abnormal) (Susceptibility) Collected: 10/24/232056 Lab Status: Final result Specimen: Blood Updated: 10/31/2334 Blood Culture -- Pseudomonas aeruginosa detected by PCR Isolate saved. If future testing is required, contact the Microbiology Principal Account Clerk. Gram Stain Aerobic -- Growth detected in [...] regards to his living situation at [facility], relationship with his care takers, and [...] this.Called Dr. Molina's office and spoke w/ traffic signal supervisor maintenance 10/30 however did not receive call back. [...] receiving only his 8pm medications. Lauri Jovel WALLPAPERER HELPER. * Rosmery Daly MD - 10/30/2023 5:50 [...] tube, nephrolithiasis, recent UTI was transferred from [facility] for currently being managed for septic shock [...] follow. Please page ID Dougie team (pager [phone]) with questions or concerns. Marcus Thomas MD Fellow, Infectious Disease Pager: [phone] Epic Chat 10/30/2023 ID ATTENDING I have [...] Note Patient: Nighat Barrios : 1965 Room: [address] Admit date: 10/25/2023 Attending: Yessi Lopes [...] right upper extremity obscuring part of the hqivd-kj-ruwv. Left chest wall subcutaneous port with tip [...] care provider that requested your imaging first. - CT [...] Component Value Units Date/Time MRSA PCR Screen ([facility]/CGP/APD/NL) [[id number]] Collected: 10/29/23 0648 Lab Status: Final result Specimen: Nasopharyngeal Swab Updated: 10/29/23 1320 MRSA Result Negative MRSA Interp -- Methicillin-resistant Staphylococcus aureus (MRSA) is NOT DETECTED The MRSA target DNA sequences (mec and SCC) were not detected within the acceptable ranges using the Xpert MRSA NxG on the GeneXpert Dx System ([employer]). This suggests the absence of MRSA in the patient specimen submitted for testing. This test is cleared by the U.S. Food and Drug Administration for clinical use and its performance characteristics have been verified by the [facility] at [facility]. This result does not rule out the presence of any other organisms. Rare false negative results may occur if MRSA is present at low concentrations with much higher concentrations of other organisms including MRSE or S. aureus with an empty SCC cassette. Comment: [VERIFIED DATE]10.29.23 Verified By:Katherine Early (Electronic Signature) Blood culture [[id number]] Collected: 10/28/23 0922 Lab Status: Preliminary result Specimen: Blood from Foot, Left Updated: 10/29/23 1501 Blood Culture No growth at 1 day. Blood culture [[id number]] Collected: 10/28/23 0910 Lab Status: Preliminary result Specimen: Blood from Hand, Right Updated: 10/29/23 1501 Blood Culture No growth at 1 day. Blood culture [[id number]] Collected: 10/25/23 1050 Lab Status: Preliminary result Specimen: Blood Updated: 10/29/23 1501 Blood Culture No growth at 4 days. Blood culture [[id number]] Collected: 10/25/23 1040 Lab Status: Preliminary result Specimen: Blood Updated: 10/29/23 1501 Blood Culture No growth at 4 days. Urine culture Cystoscopic Urine [[id number]] (Abnormal) (Susceptibility) Collected: 10/25/23 0913 Lab Status: [...] Sensitive Penicillin Sensitive Vancomycin Sensitive Urine culture [[id number]] (Abnormal) (Susceptibility) Collected: 10/24/232056 Lab Status: Final [...] using in critically ill patients. Blood culture [[id number]] (Abnormal) (Susceptibility) Collected: 10/24/232056 Lab Status: Preliminary result Specimen: Blood Updated: 10/28/23805 Blood Culture -- Pseudomonas aeruginosa detected by PCR Isolate saved. If future testing is required, contact the Microbiology Principal Account Clerk. Gram Stain Aerobic -- Growth detected in [...] regards to his living situation at [facility], relationship with his care takers, and assistance getting his motorized wheelchair in working condition. He will need FU URS/cystolitholapaxy for right 7mm UPJ stone, possibly right renal stones, residualbladder stones, which he is aware of. He will likely follow-up with his primary urologist for this.Called Dr. Molina's office and spoke w/ traffic signal supervisor maintenance 10/30. Awaiting call back. Of note, patient [...] require a change in interfaces. Lauri Jovel WALLPAPERER HELPER Vanesa Garcia RN - 10/29/2023 4:15 PM EST OUTCOME EVALUATION NOTE: OUTCOME SUMMARY: A+Ox4, unchanged neuro exam. Tachycardic, 90-110. Weaned from HFNC to RA this morning. Up to chair for about 1.5 hours, upon returning to bed new non- blanchable redness noted on R ischium. Mepilex placed, strip roller messaged via secure chat, new wound consult [...] Note Patient: Nighat Barrios : 1965 Room: [address] Admit date: 10/25/2023 Attending: Selma Brian [...] right upper extremity obscuring part of the grorg-id-zooi. Left chest wall subcutaneous port with tip [...] care provider that requested your imaging first. - CT [...] Procedure Component Value Units Date/Time Blood culture [[id number]] Collected: 10/25/23 1050 Lab Status: Preliminary result Specimen: Blood Updated: 10/28/23 1502 Blood Culture No growth at 3 days. Blood culture [[id number]] Collected: 10/25/23 1040 Lab Status: Preliminary result Specimen: Blood Updated: 10/28/23 1502 Blood Culture No growth at 3 days. Urine culture Cystoscopic Urine [[id number]] (Abnormal) (Susceptibility) Collected: 10/25/23 0913 Lab Status: [...] Sensitive Penicillin Sensitive Vancomycin Sensitive Urine culture [[id number]] (Abnormal) (Susceptibility) Collected: 10/24/232056 Lab Status: Final [...] using in critically ill patients. Blood culture [[id number]] (Abnormal) (Susceptibility) Collected: 10/24/232056 Lab Status: Preliminary result Specimen: Blood Updated: 10/28/23 0806 Blood Culture -- Pseudomonas aeruginosa detected by PCR Isolate saved. If future testing is required, contact the Microbiology Principal Account Clerk. Gram Stain Aerobic -- Growth detected in [...] regards to his living situation at the [facility], relationship with his care takers, and [...] care provider that requested your imaging first. SSMENT: received patient on high flow PLAN: wean when able Ten Valentino * Ashley Butts, [facility] - 10/28/2023 3:56 PM EST Respiratory Care [...] stage-[facility] to [...] assist and inhaled mucolytic * Kota Street, DIE TRIPPER - 10/28/2023 2:38 PM EST Speech Therapy Note Patient Profile: Nighat Barrios is a 58 y.o. male admitted on 10/25/2023 w/ past medical history quadriplegia s/p fall 10/26/2020, neurogenic bladder/bowel with SP tube and cystostomy who presented to [facility] last night with new agitation, found to have infected obstructing R urolithiasis and transferred for urgent urologic intervention. DIE TRIPPER consulted for clinical swallow evaluation. Interval History: [...] Pt was seen today for a follow-up DIE TRIPPER visit. Pt is tolerating a regular diet [...] and safe swallowing strategies. Plan: Therapy Frequency (DIE TRIPPER Eval): other (see comments) (D/c from speech intervention.) Patient / family are in agreement with treatment plan. Total Minutes (Speech Language Pathology): 10 Thank you for this consult with this patient. Please feel free to page me with any questions or concerns. Kota Street MS, [facility]-DIE TRIPPER Pager: [phone] Speech-Language Pathology Inpatient Rehabilitation Department * Ester Edwards PA - 10/28/2023 7:46 AM EST Images from the original note were not included. Urology Progress Note Patient: Nighat Barrios : 1965 Room: [address] Admit date: 10/25/2023 Attending: Selma Brina MD ID: Nighat Barrios is a 58 [...] care provider that requested your imaging first. Micro: Microbiology Results (Last 30 days) Procedure Component Value Units Date/Time Blood culture [[id number]] Collected: 10/25/23 1050 Lab Status: Preliminary result Specimen: Blood Updated: 10/27/23 1501 Blood Culture No growth at 2 days. Blood culture [[id number]] Collected: 10/25/23 1040 Lab Status: Preliminary result Specimen: Blood Updated: 10/27/23 1501 Blood Culture No growth at 2 days. Urine culture Cystoscopic Urine [[id number]] (Abnormal) (Susceptibility) Collected: 10/25/2313 Lab Status: Final [...] Sensitive Penicillin Sensitive Vancomycin Sensitive Urine culture [[id number]] (Abnormal) (Susceptibility) Collected: 10/24/232056 Lab Status: Final [...] using in critically ill patients. Blood culture [[id number]] (Abnormal) (Susceptibility) Collected: 10/24/232056 Lab Status: Preliminary result Specimen: Blood Updated: 10/28/23805 Blood Culture -- Pseudomonas aeruginosa detected by PCR Isolate saved. If future testing is required, contact the Microbiology Principal Account Clerk. Gram Stain Aerobic -- Growth detected in [...] regards to his living situation [facility], relationship with his care takers, and [...] AM EST Brief urology note: Notified by fashion buying internship early this morning the patient had increased [...] that he currently has DNR/DNI paperwork at [facility], however he did not have any of [...] care provider that requested your imaging first. Assessment: received [...] Social History: Pt lives in a private residence/halfway type setting with two caregivers that provide [...] step, and 100% of the time Attention: [facility] Safety awareness: [facility] RASS: 0 Does best with preparation/plan d/t anxiety Vision & Perception: WNL/WFL Communication & Hearing: [facility] Musculoskeletal: H/o right nerve transfers for [...] for several weeks. Pt may benefit from [employer] and [facility] team to assist with anxiety (pt chewed [...] promote upright activity. Anticipate d/c back to halfway/private living situation with caregiver support once medically [...] of functional outcome. 75 minutes; evaluation Pager: [phone] Maria G Adler OT 10/27/2023 * Bianca [...] 0.9) performed by Selma Brian MD at [facility] OR PRO CYSTOSCOPY, INSERT URETERAL STENT Right 10/25/2023 CYSTO, STENT PLACEMENT (WRVU 2.82) performed by Selma Brian MD at [facility] OR PRO CYSTOSCOPY, REMV CALCULUS, SIMPLE N/A 10/25/2023 CYSTO, REMOVAL OF STENT, FOREIGN BODY OR CALCULUS, SIMPLE (WRVU 2.81) performed by Selma Brian MD at [facility] OR There are no active non-hospital problems to display for this patient. Social History: lives in [place], [place] in a group/private home setting; he [...] Instructed in Brod[employer] features to allow for [id number] and recline for ischial pressure relief every [...] Time: 85 minutes BIANCA MORRIS, PT Pager: [phone] Physical Therapy Inpatient Rehabilitation Department * Jordana Canchola MD - 10/27/2023 8:45 AM EST Images from the original note were not included. Urology Progress Note Patient: Nighat Barrios : 1965 Room: [address] Admit date: 10/25/2023 Attending: Selma Brian [...] Procedure Component Value Units Date/Time Blood culture [[id number]] Collected: 10/25/23 1050 Lab Status: Preliminary result Specimen: Blood Updated: 10/26/23 1501 Blood Culture No growth at 1 day. Blood culture [[id number]] Collected: 10/25/23 1040 Lab Status: Preliminary result Specimen: Blood Updated: 10/26/23 1501 Blood Culture No growth at 1 day. Urine culture Cystoscopic Urine [[id number]] (Abnormal) Collected: 10/25/23 0913 Lab Status: Preliminary result Specimen: Cystoscopic Urine Updated: 10/26/23 1048 Urine Culture -- Greater than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 3.19(L) 4.58 - 5.54 x10(6)/mc L [facility] LABORATORY Hemoglobin 9.3(L) 13.7 - 16.5 g/dL [facility] Hematocrit 28.9(L) 40.5 - 48.5 % [facility] Mean Cell Volume 90.6 82.9 - 93.1 fL [facility] Mean Cell Hemoglobin 29.2 27.5 - 32.1 pg [facility] Mean Cell Hemoglobin Concentration 32.2 32.0 - 35.7 g/dL [facility] Platelet 439(H) 145 - 357 x10(3)/mc L [facility] RDW Standard Deviation 45.9(H) 36.0 - 45.0 fL [facility] RDW coefficient of variation 14.1(H) 11.4 - 13.8 % [facility] Mean Platelet Volume 9.7 7.6 - 12.9 fL [facility] NRBC% auto 0.0 % [facility] LABORATORY NRBC Absolute 0.000 0.000 - 0.000 x10(3)/mc L [facility] LABORATORY Blood 11/08/2023 4:20 PM EST 11/08/2023 4:25 PM EST Narrative Resulting Agency Comment Spec In Lab Monty OMER HEMATOLOGY ORDERABLE S Performing Organization Address City/State/[facility] Co de Phone Number [facility] [place] [address] * (ABNORMAL) Basic Metabolic Panel (non-fasting) (11/08/2023 4:20 PM EST) Glucose 92 65 - 199 mg/dL [facility] LABORATORY Comment:Diabetes: >=200 mg/d L plus symptoms Blood Urea Nitrogen 9(L) 10 - 20 mg/dL [facility] Creatinine 0.70(L) 0.80 - 1.50 mg/dL [facility] Sodium 144 135 - 145 mmol/L [facility] Potassium 3.9 3.5 - 5.0 mmol/L [facility]OR[facility]ORY Comment: Please note: ??Patients with WBC >100,000 may have falsely elevated Potassium levels. ??For accurate Potassium quantification in these patients send serum separator tube (gold top) for subsequent determinations. ??Contact the Clinical Chemistry Laboratory if there are any questions. Chloride 109(H) 98 - 107 mmol/L [facility] LABORATORY Carbon Dioxide 25 22 - 31 mmol/L [facility] Anion Gap 10 5 - 15 mmol/L [facility] Calcium 8.7 8.5 - 10.5 mg/dL [facility] Est Glomerular Filtration Rate 108 >=60 mL/min/1. 73 m?? [facility] Comment: This patient's estimated GFR [...] MD CHEMISTRY ORDERABL ES Performing Organization Address City/[facility] Co de Phone Number [facility] [place] [address] * Phosphorus (11/08/2023 4:20 PM EST) Phosphorus 3.0 2.5 - 4.5 mg/dL [facility] LABOR[facility]ORY Blood 11/08/2023 4:20 PM EST 11/08/2023 4:25 PM EST Narrative Resulting Agency Comment Spec In Lab Selma Brian MD CHEMISTRY ORDERABL ES Performing Organization Address City/[facility]/ZIP Co de Phone Number [facility] [place] [address] * Magnesium (11/08/2023 4:20 PM EST) Magnesium 0.71 0.69 - 1.07 mmol/L [facility]OR[facility] Blood 11/08/2023 4:20 PM EST 11/08/2023 4:25 PM EST Narrative Resulting Agency Comment Spec In Lab Selma Brian MD [place] [address] * (ABNORMAL) Differential, Automated (11/07/2023 6:33 AM EST) Neutrophil % 70.2 % [facility] Neutrophil Absolute 4.31 1.70 - 6.10 x10(3)/mc L [facility] Lymph % 18.2 % [facility] LABORATORY Lymphocytes Abs 1.1 0.9 - 3.2 x10(3)/mc L [facility] Monocyte % 7.5 % [facility] Monocyte Abs 0.5 0.3 - 0.9 x10(3)/mc L [facility] Eos % 2.8 % [facility] LABORATORY Eosinophils Abs 0.2 0.0 - 0.4 x10(3)/mc L [facility] Basophil % 0.5 % [facility] Baso Absolute 0.0 0.0 - 0.1 x10(3)/mc L [facility]OR[facility] Immature Gran % 0.80 % [facility] LABORATORY Comment: Immature granulocytes(IG's)percentage and absolute count will include metamyelocytes, myelocytes, and promyelocytes. Blood smears from CBCs yielding IG's will be scanned manually for concordance. If this scan disagrees with the automated IG or if promyelocytes are noted, a manual differential will be performed. Immature Gran Absolute 0.05(H) 0.00 - 0.04 x10(3)/mc L [facility] LABORATORY Blood 11/07/2023 6:33 AM EST 11/07/2023 6:50 AM EST Narrative Resulting Agency Comment Spec In Lab Monty OMER [place] [address] * (ABNORMAL) Hemogram (11/07/2023 6:33 AM EST) White Blood Cell 6.1 4.0 - 9.5 x10(3)/mc L [facility]OR[facility] Red Blood Cell 2.80(L) 4.58 - 5.54 x10(6)/mc L [facility] Hemoglobin 8.8(L) 13.7 - 16.5 g/dL [facility] Hematocrit 26.6(L) 40.5 - 48.5 % [facility] Mean Cell Volume 95.0(H) 82.9 - 93.1 fL [facility] Mean Cell Hemoglobin 31.4 27.5 - 32.1 pg [facility] Mean Cell Hemoglobin Concentration 33.1 32.0 - 35.7 g/dL [facility] Platelet 433(H) 145 - 357 x10(3)/mc L [facility] RDW Standard Deviation 46.6(H) 36.0 - 45.0 fL [facility] RDW coefficient of variation 13.9(H) 11.4 - 13.8 % [facility] Mean Platelet Volume 9.8 7.6 - 12.9 fL [facility] NRBC% auto 0.0 % [facility] NRBC Absolute 0.000 0.000 - 0.000 x10(3)/ L [facility] Blood 11/07/2023 6:33 AM EST 11/07/2023 6:50 AM EST Narrative Resulting Agency Comment Spec In Lab Monty OMER HEMATOLOGY ORDERABLE S Performing Organization Address City/State/[facility] Co de Phone Number [facility] [place] [address] * (ABNORMAL) Basic Metabolic Panel (non-fasting) (11/07/2023 6:33 AM EST) Glucose 89 65 - 199 mg/dL [facility] Comment:Diabetes: >=200 mg/d L plus symptoms Blood Urea Nitrogen 7(L) 10 - 20 mg/dL [facility] Creatinine 0.57(L) 0.80 - 1.50 mg/dL [facility] Sodium 143 135 - 145 mmol/L [facility] Potassium 3.6 3.5 - 5.0 mmol/L [facility] Comment: Please note: ??Patients with WBC >100,000 may have falsely elevated Potassium levels. ??For accurate Potassium quantification in these patients send serum separator tube (gold top) for subsequent determinations. ??Contact the Clinical Chemistry Laboratory if there are any questions. Chloride 108(H) 98 - 107 mmol/L [facility] Carbon Dioxide 25 22 - 31 mmol/L [facility] Anion Gap 10 5 - 15 mmol/L [facility] Calcium 9.0 8.5 - 10.5 mg/dL [facility] Est Glomerular Filtration Rate 115 >=60 mL/min/1. 73 m?? [facility] Comment: This patient's estimated GFR [...] MD CHEMISTRY ORDERABL ES Performing Organization Address [facility] de Phone Number [facility] [place] [address] * Phosphorus (11/07/2023 6:33 AM EST) Phosphorus 3.3 2.5 - 4.5 mg/dL [facility] Blood 11/07/2023 6:33 AM EST 11/07/2023 6:50 AM EST Narrative Resulting Agency Comment Spec In Lab Selma Brian MD CHEMISTRY ORDERABL ES Performing Organization Address [facility] de Phone Number [facility] [place] [address] * Magnesium (11/07/2023 6:33 AM EST) Magnesium 0.75 0.69 - 1.07 mmol/L [facility] Blood 11/07/2023 6:33 AM EST 11/07/2023 6:50 AM EST Narrative Resulting Agency Comment Spec In Lab Selma Brian MD CHEMISTRY ORDERABL ES Performing Organization Address City/[facility]/[place] [address] * (ABNORMAL) Differential, Automated (11/06/2023 1:00 AM EST) Neutrophil % 77.6 % [facility] Neutrophil Absolute 6.21(H) 1.70 - 6.10 x10(3)/mc L [facility] Lymph % 13.9 % [facility] Lymphocytes Abs 1.1 0.9 - 3.2 x10(3)/mc L [facility] Monocyte % 6.6 % [facility] Monocyte Abs 0.5 0.3 - 0.9 x10(3)/mc L [facility] Eos % 1.2 % [facility] Eosinophils Abs 0.1 0.0 - 0.4 x10(3)/mc L [facility] Basophil % 0.2 % [facility] Baso Absolute 0.0 0.0 - 0.1 x10(3)/mc L [facility] Immature Gran % 0.50 % [facility] Comment: Immature granulocytes(IG's)percentage and absolute count will include metamyelocytes, myelocytes, and promyelocytes. Blood smears from CBCs yielding IG's will be scanned manually for concordance. If this scan disagrees with the automated IG or if promyelocytes are noted, a manual differential will be performed. Immature Gran Absolute 0.04 0.00 - 0.04 x10(3)/mc L [facility] Blood 11/06/2023 1:00 AM EST 11/06/2023 1:20 AM EST Narrative Resulting Agency Comment Spec In Lab Monty OMER HEMATOLOGY ORDERABLE S Performing Organization Address City/[facility]/[place] [address] * (ABNORMAL) Hemogram (11/06/2023 1:00 AM EST) White Blood Cell 8.0 4.0 - 9.5 x10(3)/mc L [facility] Red Blood Cell 2.56(L) 4.58 - 5.54 x10(6)/mc L [facility] Hemoglobin 8.2(L) 13.7 - 16.5 g/dL [facility] Hematocrit 24.1(L) 40.5 - 48.5 % [facility] Mean Cell Volume 94.1(H) 82.9 - 93.1 fL [facility] Mean Cell Hemoglobin 32.0 27.5 - 32.1 pg [facility] Mean Cell Hemoglobin Concentration 34.0 32.0 - 35.7 g/dL [facility] Platelet 408(H) 145 - 357 x10(3)/mc L [facility] RDW Standard Deviation 45.9(H) 36.0 - 45.0 fL [facility] RDW coefficient of variation 14.0(H) 11.4 - 13.8 % [facility] Mean Platelet Volume 10.0 7.6 - 12.9 fL [facility] NRBC% auto 0.0 % [facility] NRBC Absolute 0.000 0.000 - 0.000 x10(3)/ L [facility] Blood 11/06/2023 1:00 AM EST 11/06/2023 1:20 AM EST Narrative Resulting Agency Comment Spec In Lab Monty OMER HEMATOLOGY ORDERABLE S [facility] [place] [address] * (ABNORMAL) Basic Metabolic Panel (non-fasting) (11/06/2023 1:00 AM EST) Glucose 132 65 - 199 mg/dL [facility] Comment: Result rechecked - HT Diabetes: >=200 mg/dL plus symptoms Blood Urea Nitrogen 6(L) 10 - 20 mg/dL [facility] Comment:Result rechecked - H T Creatinine 0.63(L) 0.80 - 1.50 mg/dL [facility] Comment:Result rechecked - H T Sodium 143 135 - 145 mmol/L [facility] Comment:Result rechecked - H T Potassium 3.6 3.5 - 5.0 mmol/L [facility] Comment: Result rechecked - HT Please note: ??Patients with WBC >100,000 may have falsely elevated Potassium levels. ??For accurate Potassium quantification in these patients send serum separator tube (gold top) for subsequent determinations. ??Contact the Clinical Chemistry Laboratory if there are any questions. Chloride 106 98 - 107 mmol/L [facility] Comment:Result rechecked - H T Carbon Dioxide 27 22 - 31 mmol/L [facility] Comment:Result rechecked - H T Anion Gap 10 5 - 15 mmol/L [facility] Calcium 8.8 8.5 - 10.5 mg/dL [facility] Comment:Result rechecked - H T Est Glomerular Filtration Rate 112 >=60 mL/min/1. 73 m?? [facility] Comment: This patient's estimated GFR [...] Lab Selma Brian MD CHEMISTRY ORDERABL ES [facility] [place] [address] * Phosphorus (11/06/2023 1:00 AM EST) Phosphorus 3.6 2.5 - 4.5 mg/dL [facility] Comment:Result rechecked - H T Blood 11/06/2023 1:00 AM EST 11/06/2023 1:20 AM EST Narrative Resulting Agency Comment Spec In Lab Selma Brian MD CHEMISTRY ORDERABL ES Performing Organization Address City/[facility]/ZIP Co de Phone Number [facility] [place] [address] * Magnesium (11/06/2023 1:00 AM EST) Magnesium 0.81 0.69 - 1.07 mmol/L [facility] Comment:Result rechecked - H T Blood 11/06/2023 1:00 AM EST 11/06/2023 1:20 AM EST Narrative Resulting Agency Comment Spec In Lab Selma Brian MD CHEMISTRY ORDERABL ES Performing Organization Address [facility] Co de Phone Number [facility] [place] [address] * (ABNORMAL) Troponin (11/05/2023 7:40 AM EST) Troponin-T, High Sensitivity 63(H) <=22 ng/L [facility] Comment: This patient's troponin T [...] troponin value can be found in the [facility] Laboratory Test Catalog Troponin - [facility] Laboratory Test Catalog Reference: [place] Definition of Myocardial Infarction. Journal of the [place] [employer] 2018;72:3519-2432 Blood 11/05/2023 7:40 AM EST 11/05/2023 7:45 AM EST Narrative Resulting Agency Comment Spec In Lab Yessi Lopes MD CHEMISTRY ORDER LORNA [facility] [place] [address] * (ABNORMAL) Differential, Automated (11/05/2023 4:17 AM EST) Neutrophil % 74.6 % [facility] Neutrophil Absolute 6.39(H) 1.70 - 6.10 x10(3)/mc L [facility] Lymph % 14.7 % [facility] Lymphocytes Abs 1.3 0.9 - 3.2 x10(3)/mc L [facility] Monocyte % 6.8 % [facility] Monocyte Abs 0.6 0.3 - 0.9 x10(3)/mc L [facility] Eos % 2.7 % [facility] Eosinophils Abs 0.2 0.0 - 0.4 x10(3)/mc L [facility] Basophil % 0.4 % [facility] Baso Absolute 0.0 0.0 - 0.1 x10(3)/mc L [facility] Immature Gran % 0.80 % [facility] Comment: Immature granulocytes(IG's)percentage and absolute count will include metamyelocytes, myelocytes, and promyelocytes. Blood smears from CBCs yielding IG's will be scanned manually for concordance. If this scan disagrees with the automated IG or if promyelocytes are noted, a manual differential will be performed. Immature Gran Absolute 0.07(H) 0.00 - 0.04 x10(3)/mc L [facility] Blood 11/05/2023 4:17 AM EST 11/05/2023 4:38 AM EST Narrative Resulting Agency Comment Spec In Lab Monty OMER HEMATOLOGY ORDERABLE S [facility] [place] [address] * (ABNORMAL) Hemogram (11/05/2023 4:17 AM EST) Pathologist [facility] White Blood Cell 8.6 4.0 - 9.5 x10(3)/mc L [facility] Red Blood Cell 2.78(L) 4.58 - 5.54 x10(6)/mc L [facility] Hemoglobin 8.6(L) 13.7 - 16.5 g/dL [facility] Hematocrit 25.7(L) 40.5 - 48.5 % [facility] Mean Cell Volume 92.4 82.9 - 93.1 fL [facility] Mean Cell Hemoglobin 30.9 27.5 - 32.1 pg [facility] Mean Cell Hemoglobin Concentration 33.5 32.0 - 35.7 g/dL [facility] Platelet 429(H) 145 - 357 x10(3)/mc L [facility] RDW Standard Deviation 45.7(H) 36.0 - 45.0 fL [facility] RDW coefficient of variation 13.8 11.4 - 13.8 % [facility] Mean Platelet Volume 10.3 7.6 - 12.9 fL [facility] NRBC% auto 0.0 % [facility] NRBC Absolute 0.000 0.000 - 0.000 x10(3)/mc L [facility] Blood 11/05/2023 4:17 AM EST 11/05/2023 4:38 AM EST Narrative Resulting Agency Comment Spec In Lab Monty [facility] HEMATOLOG[facility] ORDERABLE S [facility] [place] [address] * (ABNORMAL) Troponin (11/05/2023 4:17 AM EST) [facility] Troponin-T, High Sensitivity 69(H) <=22 ng/L [facility] LABORATORY Comment: This patient's troponin T [...] troponin value can be found in the [facility] Laboratory Test Catalog Troponin - [facility] Laboratory Test Catalog Reference: [place] Definition of Myocardial Infarction. Journal of the [place] [employer] 2018;72:[id number] Blood 11/05/2023 4:17 AM EST 11/05/2023 4:38 AM EST Narrative Resulting Agency Comment Spec In Lab Yessi Lopes MD CHEMISTRY ORDER LORNA [facility] [place] [address] * (ABNORMAL) Basic Metabolic Panel (non-fasting) (11/05/2023 4:17 AM EST) Glucose 126 65 - 199 mg/dL [facility] Comment:Diabetes: >=200 mg/d L plus symptoms Blood Urea Nitrogen 8(L) 10 - 20 mg/dL [facility] Creatinine 0.57(L) 0.80 - 1.50 mg/dL [facility] Sodium 141 135 - 145 mmol/L [facility] Potassium 3.5 3.5 - 5.0 mmol/L [facility] Comment: Please note: ??Patients with WBC >100,000 may have falsely elevated Potassium levels. ??For accurate Potassium quantification in these patients send serum separator tube (gold top) for subsequent determinations. ??Contact the Clinical Chemistry Laboratory if there are any questions. Chloride 105 98 - 107 mmol/L [facility] Carbon Dioxide 27 22 - 31 mmol/L [facility] Anion Gap 9 5 - 15 mmol/L [facility] Calcium 8.6 8.5 - 10.5 mg/dL [facility] Est Glomerular Filtration Rate 115 >=60 mL/min/1. 73 m?? [facility] Comment: This patient's estimated GFR [...] MD CHEMISTRY ORDERABL ES Performing Organization Address City/[facility] Co de Phone Number [facility] [place] [address] * Phosphorus (11/05/2023 4:17 AM EST) Phosphorus 2.9 2.5 - 4.5 mg/dL [facility] Blood 11/05/2023 4:17 AM EST 11/05/2023 4:38 AM EST Narrative Resulting Agency Comment Spec In Lab Selma Brian MD CHEMISTRY ORDERABL ES Performing Organization Address City/[facility]/ZIP Co de Phone Number [facility] [place] [address] * Magnesium (11/05/2023 4:17 AM EST) Magnesium 0.90 0.69 - 1.07 mmol/L [facility] Blood 11/05/2023 4:17 AM EST 11/05/2023 4:38 AM EST Narrative Resulting Agency Comment Spec In Lab Selma Brian MD CHEMISTRY ORDERABL ES Performing Organization Address City/[facility]/ZIP Co de Phone Number [facility] [place] [address] * TSH [place] (11/05/2023 4:17 AM EST) Thyroid Stimulating Hormone 2.87 0.27 - 4.20 mcIU/mL [facility] Comment: Reference Interval (mcIU/mL): Females: ??First Trimester: 0.23-3.88 ??Second Trimester: 0.22-3.90 ??Third Trimester: 0.44-4.66 Blood 11/05/2023 4:17 AM EST 11/05/2023 4:38 AM EST Narrative Resulting Agency Comment Spec In Lab Yessi Lopes MD CHEMISTRY ORDER LORNA Performing Organization Address [facility] Co de Phone Number [facility] [place] [address] * (ABNORMAL) Troponin (11/04/2023 11:50 PM EST) Troponin-T, High Sensitivity 72(H) <=22 ng/L [facility] Comment: This patient's troponin T [...] troponin value can be found in the [facility] Laboratory Test Catalog Troponin - [facility] Laboratory Test Catalog Reference: [place] Definition of Myocardial Infarction. Journal of the [place] [employer] 2018;72:[id number] Blood 11/04/2023 11:5 0 PM EST 11/04/2023 11:54 PM EST Narrative Resulting Agency Comment Spec In Lab Yessi Lopes MD CHEMISTRY ORDER LORNA [facility] [place] [address] * XR Chest One View (11/04/2023 6:55 [...] care provider that requested your imaging first. Yessi Lopes MD IMG DX ORDERABL ES * (ABNORMAL) BLOOD GAS 2 VENOUS (11/04/2023 6:42 PM EST) pH, Venous 7.42 7.32 - 7.42 [facility] PCO2, Venous 40(L) 41 - 51 mmHg [facility] PO2, Venous 61(H) 25 - 40 mmHg [facility] Bicarbonate, Venous 25.7 mmol/L [facility] Base Excess, Venous 1.3 mmol/L [facility] Hgb Blood Gas 10.1(L) 13.7 - 16.5 g/dL [facility] Oxyhemoglobin, Venous 90.4 % [facility] Carboxyhemoglob in, Venous 0.2 % [facility] Comment: Nonsmokers: 0.5-1.5% COHB Smokers: Variable, but usually less than 10% Toxic: 20-30% COHB Lethal: Greater than 60% COHB Methemoglobin, Venous 0.4 <=1.5 % [facility] Na Whole Blood 138 135 - 145 mmol/L [facility] K Whole Blood 3.6 3.5 - 5.0 mmol/L [facility] Comment: Please note: Patients with WBC >100,000 may have falsely elevated Potassium levels. Contact the Clinical Chemistry Laboratory if there are any questions. ICa Whole Blood 1.20 1.15 - 1.33 mmol/L [facility] Comment: Note: ??Total bilirubin higher than 20 mg/dL may lead to falsely low ionized calcium. CL Whole Blood 105 98 - 107 mmol/L [facility] Gluc Whole Bld 116 65 - 199 mg/dL [facility] Comment:Diabetes: >=200 mg/d L plus symptoms Lactate WB 1.3 0.5 - 2.2 mmol/L [facility] Flow, Drake 6.0 LPM [facility] Blood Gas Source Venous [facility] Blood 11/04/2023 6:42 PM EST 11/04/2023 6:42 PM EST Yessi Lopes MD POINT OF CARE T EST ORDERABLES [facility] [place] [address] * (ABNORMAL) Troponin (11/04/2023 6:30 PM EST) Troponin-T, High Sensitivity 60(H) <=22 ng/L [facility] Comment: This patient's troponin T [...] troponin value can be found in the [facility] Laboratory Test Catalog Troponin - [facility] Laboratory Test Catalog Reference: [place] Definition of Myocardial Infarction. Journal of the [place] [employer] Cardiology 2018;72:[id number] Blood 11/04/2023 6:30 PM EST 11/04/2023 7:06 PM EST Narrative Resulting Agency Comment Spec In Lab Yessi Lopes MD CHEMISTRY ORDER LORNA [facility] [place] [address] * (ABNORMAL) Differential, Automated (11/04/2023 6:30 PM EST) Neutrophil % 81.4 % [facility] Neutrophil Absolute 8.48(H) 1.70 - 6.10 x10(3)/mc L [facility] Lymph % 11.0 % [facility] Lymphocytes Abs 1.1 0.9 - 3.2 x10(3)/mc L [facility] Monocyte % 5.1 % [facility] Monocyte Abs 0.5 0.3 - 0.9 x10(3)/mc L [facility] Eos % 2.0 % [facility] Eosinophils Abs 0.2 0.0 - 0.4 x10(3)/mc L [facility] Basophil % 0.2 % [facility] Baso Absolute 0.0 0.0 - 0.1 x10(3)/mc L [facility] Immature Gran % 0.30 % [facility] Comment: Immature granulocytes(IG's)percentage and absolute count will include metamyelocytes, myelocytes, and promyelocytes. Blood smears from CBCs yielding IG's will be scanned manually for concordance. If this scan disagrees with the automated IG or if promyelocytes are noted, a manual differential will be performed. Immature Gran Absolute 0.03 0.00 - 0.04 x10(3)/ L [facility] Blood 11/04/2023 6:30 PM EST 11/04/2023 6:36 PM EST Narrative Resulting Agency Comment Spec In Lab Jose Machado MD HEMATOLOGY ORDER LORNA Performing Organization Address City/State/[facility] Co de Phone Number [facility] [place] [address] * (ABNORMAL) Hemogram (11/04/2023 6:30 PM EST) White Blood Cell 10.4(H) 4.0 - 9.5 x10(3)/[facility] LAB[facility] Red Blood Cell 2.93(L) 4.58 - 5.54 x10(6)/[facility] LAB[facility]ORY Hemoglobin 8.8(L) 13.7 - 16.5 g/dL [facility] Hematocrit 26.7(L) 40.5 - 48.5 % [facility] Mean Cell Volume 91.1 82.9 - 93.1 fL [facility] Mean Cell Hemoglobin 30.0 27.5 - 32.1 pg [facility] Mean Cell Hemoglobin Concentration 33.0 32.0 - 35.7 g/dL [facility] Platelet 393(H) 145 - 357 x10(3)/[facility] LAB[facility]ORY RDW Standard Deviation 44.7 36.0 - 45.0 fL [facility] RDW coefficient of variation 13.6 11.4 - 13.8 % [facility] Mean Platelet Volume 10.0 7.6 - 12.9 fL [facility] NRBC% auto 0.0 % [facility] NRBC Absolute 0.000 0.000 - 0.000 x10(3)/mc L [facility] Blood 11/04/2023 6:30 PM EST 11/04/2023 6:36 PM EST Narrative Resulting Agency Comment Spec In Lab Jose Machado MD HEMATOLOGY ORDER LORNA [facility] [place] [address] * Lactate, whole blood, send to lab ([facility]) (11/04/2023 6:30 PM EST) Lactate WB 1.4 0.5 - 2.2 mmol/L [facility] Blood 11/04/2023 6:30 PM EST 11/04/2023 6:36 PM EST Narrative Resulting Agency Comment Spec In Lab Yessi Lopes MD CHEMISTRY ORDER LORNA [facility] [place] [address] * Phosphorus (11/04/2023 6:30 PM EST) Phosphorus 2.6 2.5 - 4.5 mg/dL [facility] Blood 11/04/2023 6:30 PM EST 11/04/2023 6:36 PM EST Narrative Resulting Agency Comment Spec In Lab Yessi Lopes MD CHEMISTRY ORDER LORNA [facility] [place] [address] * Magnesium (11/04/2023 6:30 PM EST) Magnesium 0.76 0.69 - 1.07 mmol/L [facility] Blood 11/04/2023 6:30 PM EST 11/04/2023 6:36 PM EST Narrative Resulting Agency Comment Spec In Lab Yessi Lopes MD CHEMISTRY ORDER LORNA [facility] [place] [address] * (ABNORMAL) Basic Metabolic Panel (non-fasting) (11/04/2023 6:30 PM EST) Glucose 108 65 - 199 mg/dL [facility] Comment:Diabetes: >=200 mg/d L plus symptoms Blood Urea Nitrogen 8(L) 10 - 20 mg/dL [facility] Creatinine 0.59(L) 0.80 - 1.50 mg/dL [facility] Sodium 142 135 - 145 mmol/L [facility] Potassium 3.9 3.5 - 5.0 mmol/L [facility] Comment: Please note: ??Patients with WBC >100,000 may have falsely elevated Potassium levels. ??For accurate Potassium quantification in these patients send serum separator tube (gold top) for subsequent determinations. ??Contact the Clinical Chemistry Laboratory if there are any questions. Chloride 107 98 - 107 mmol/L [facility] Carbon Dioxide 23 22 - 31 mmol/L [facility] Anion Gap 12 5 - 15 mmol/L [facility] Calcium 8.7 8.5 - 10.5 mg/dL [facility] Est Glomerular Filtration Rate 114 >=60 mL/min/1. 73 m?? [facility] Comment: This patient's estimated GFR [...] MD CHEMISTRY ORDER LORNA Performing Organization Address City/[facility]/ZIP Co de Phone Number [facility] [place] [address] * EKG 12 Lead (11/04/2023 6:20 PM EST) Ventricular rate 77 BPM MUSE SYSTEM Atrial Rate 77 BPM MUSE SYSTEM P-R Interval 148 ms MUSE SYSTEM QRS Duration 94 ms MUSE SYSTEM Q-T Interval 418 ms MUSE SYSTEM QTC Calculated (Bezet) 473 ms MUSE SYSTEM Calculated P Carpenter 79 degrees MUSE SYSTEM Calculated R Carpenter 23 degrees MUSE SYSTEM Calculated T Carpenter 71 degrees MUSE SYSTEM INTERPRETATION Normal sinus rhythm Incomplete right bundle branch block Borderline ECG When compared with ECG of 01-NOV-2023 13:44, Non-specific change in ST segment in Anterior leads Nonspecific T wave abnormality no longer evident in Anterior leads Confirmed by MD Yumiko, Jeff Hopkins ([id number]) on 11/06/2023 3:01:32 PM MUSE SYSTEM 11/04/2023 6:20 PM EST 11/06/2023 3:01 PM EST Yessi Lopes MD ECG ORDERABLES Performing Organization Address City/[facility]/ZIP Co de Phone Number MUSE SYSTEM * (ABNORMAL) Differential, Automated (11/04/2023 1:55 AM EST) Pathologist [facility] Neutrophil % 73.5 % [facility] Neutrophil Absolute 7.14(H) 1.70 - 6.10 x10(3)/mc L [facility] Lymph % 16.8 % [facility] Lymphocytes Abs 1.6 0.9 - 3.2 x10(3)/mc L [facility] Monocyte % 6.8 % [facility] Monocyte Abs 0.7 0.3 - 0.9 x10(3)/mc L [facility] Eos % 2.0 % [facility] Eosinophils Abs 0.2 0.0 - 0.4 x10(3)/mc L [facility] Basophil % 0.1 % [facility] Baso Absolute 0.0 0.0 - 0.1 x10(3)/mc L [facility] Immature Gran % 0.80 % [facility] Comment: Immature granulocytes(IG's)percentage and absolute count will include metamyelocytes, myelocytes, and promyelocytes. Blood smears from CBCs yielding IG's will be scanned manually for concordance. If this scan disagrees with the automated IG or if promyelocytes are noted, a manual differential will be performed. Immature Gran Absolute 0.08(H) 0.00 - 0.04 x10(3)/mc L [facility] Blood 11/04/2023 1:55 AM EST 11/04/2023 2:01 AM EST Narrative Resulting Agency Comment Spec In Lab Monty OMER HEMATOLOGY ORDERABLE S [facility] [place] [address] * (ABNORMAL) Hemogram (11/04/2023 1:55 AM EST) White Blood Cell 9.7(H) 4.0 - 9.5 x10(3)/mc L [facility] Red Blood Cell 2.91(L) 4.58 - 5.54 x10(6)/mc L [facility] Hemoglobin 8.7(L) 13.7 - 16.5 g/dL [facility] Hematocrit 26.3(L) 40.5 - 48.5 % [facility] Mean Cell Volume 90.4 82.9 - 93.1 fL [facility] Mean Cell Hemoglobin 29.9 27.5 - 32.1 pg [facility] Mean Cell Hemoglobin Concentration 33.1 32.0 - 35.7 g/dL [facility] Platelet 363(H) 145 - 357 x10(3)/mc L [facility] RDW Standard Deviation 45.6(H) 36.0 - 45.0 fL [facility] RDW coefficient of variation 13.8 11.4 - 13.8 % [facility] Mean Platelet Volume 9.9 7.6 - 12.9 fL [facility] NRBC% auto 0.0 % [facility] NRBC Absolute 0.000 0.000 - 0.000 x10(3)/mc L [facility] Blood 11/04/2023 1:55 AM EST 11/04/2023 2:01 AM EST Narrative Resulting Agency Comment Spec In Lab Monty OMER HEMATOLOGY ORDERABLE S [facility] [place] [address] * (ABNORMAL) Basic Metabolic Panel (non-fasting) (11/04/2023 1:55 AM EST) Glucose 98 65 - 199 mg/dL [facility] Comment:Diabetes: >=200 mg/d L plus symptoms Blood Urea Nitrogen 8(L) 10 - 20 mg/dL [facility] Creatinine 0.60(L) 0.80 - 1.50 mg/dL [facility] Sodium 143 135 - 145 mmol/L [facility] Potassium 3.7 3.5 - 5.0 mmol/L [facility] Comment: Please note: ??Patients with WBC >100,000 may have falsely elevated Potassium levels. ??For accurate Potassium quantification in these patients send serum separator tube (gold top) for subsequent determinations. ??Contact the Clinical Chemistry Laboratory if there are any questions. Chloride 107 98 - 107 mmol/L [facility] Carbon Dioxide 26 22 - 31 mmol/L [facility] Anion Gap 10 5 - 15 mmol/L [facility] Calcium 8.7 8.5 - 10.5 mg/dL [facility] Est Glomerular Filtration Rate 113 >=60 mL/min/1. 73 m?? [facility] Comment: This patient's estimated GFR [...] MD CHEMISTRY ORDERABL ES Performing Organization Address [facility] Co de Phone Number [facility] [place] [address] * Phosphorus (11/04/2023 1:55 AM EST) Pathologist [facility] Phosphorus 2.9 2.5 - 4.5 mg/dL [facility] Blood 11/04/2023 1:55 AM EST 11/04/2023 2:01 AM EST Narrative Resulting Agency Comment Spec In Lab Selma Brian MD CHEMISTRY ORDERABL ES Performing Organization Address [facility] Co de Phone Number [facility] [place] [address] * Magnesium (11/04/2023 1:55 AM EST) Pathologist [facility] Magnesium 0.78 0.69 - 1.07 mmol/L [facility] Blood 11/04/2023 1:55 AM EST 11/04/2023 2:01 AM EST Narrative Resulting Agency Comment Spec In Lab Selma Brian MD CHEMISTRY ORDERABL ES Performing Organization Address [facility] de Phone Number [facility] [place] [address] * (ABNORMAL) Differential, Automated (11/03/2023 1:15 AM EST) Pathologist [facility] Neutrophil % 75.0 % [facility] Neutrophil Absolute 7.54(H) 1.70 - 6.10 x10(3)/mc L [facility] Lymph % 15.7 % [facility] Lymphocytes Abs 1.6 0.9 - 3.2 x10(3)/mc L [facility] Monocyte % 6.5 % [facility] Monocyte Abs 0.6 0.3 - 0.9 x10(3)/mc L [facility] Eos % 1.9 % [facility] Eosinophils Abs 0.2 0.0 - 0.4 x10(3)/mc L [facility] Basophil % 0.2 % [facility] Baso Absolute 0.0 0.0 - 0.1 x10(3)/mc L [facility] Immature Gran % 0.70 % [facility] Comment: Immature granulocytes(IG's)percentage and absolute count will include metamyelocytes, myelocytes, and promyelocytes. Blood smears from CBCs yielding IG's will be scanned manually for concordance. If this scan disagrees with the automated IG or if promyelocytes are noted, a manual differential will be performed. Immature Gran Absolute 0.07(H) 0.00 - 0.04 x10(3)/mc L [facility] Blood 11/03/2023 1:15 AM EST 11/03/2023 1:25 AM EST Narrative Resulting Agency Comment Spec In Lab Monty OMER HEMATOLOGY ORDERABLE S Performing Organization Address City/State/[facility] Co de Phone Number [facility] [place] [address] * (ABNORMAL) Hemogram (11/03/2023 1:15 AM EST) White Blood Cell 10.0(H) 4.0 - 9.5 x10(3)/mc L [facility] Red Blood Cell 3.01(L) 4.58 - 5.54 x10(6)/mc L [facility] Hemoglobin 8.7(L) 13.7 - 16.5 g/dL [facility] Hematocrit 27.0(L) 40.5 - 48.5 % [facility] Mean Cell Volume 89.7 82.9 - 93.1 fL [facility] Mean Cell Hemoglobin 28.9 27.5 - 32.1 pg [facility] Mean Cell Hemoglobin Concentration 32.2 32.0 - 35.7 g/dL [facility] Platelet 331 145 - 357 x10(3)/mc L [facility] RDW Standard Deviation 45.6(H) 36.0 - 45.0 fL [facility] RDW coefficient of variation 13.9(H) 11.4 - 13.8 % [facility] Mean Platelet Volume 9.6 7.6 - 12.9 fL [facility] NRBC% auto 0.0 % [facility] NRBC Absolute 0.000 0.000 - 0.000 x10(3)/mc L [facility] Blood 11/03/2023 1:15 AM EST 11/03/2023 1:25 AM EST Narrative Resulting Agency Comment Spec In Lab Monty OMER HEMATOLOGY ORDERABLE S [facility] [place] [address] * (ABNORMAL) Basic Metabolic Panel (non-fasting) (11/03/2023 1:15 AM EST) Glucose 105 65 - 199 mg/dL [facility] Comment:Diabetes: >=200 mg/d L plus symptoms Blood Urea Nitrogen 6(L) 10 - 20 mg/dL [facility] Creatinine 0.59(L) 0.80 - 1.50 mg/dL [facility] Sodium 140 135 - 145 mmol/L [facility] Potassium 3.8 3.5 - 5.0 mmol/L [facility] Comment: Please note: ??Patients with WBC >100,000 may have falsely elevated Potassium levels. ??For accurate Potassium quantification in these patients send serum separator tube (gold top) for subsequent determinations. ??Contact the Clinical Chemistry Laboratory if there are any questions. Chloride 104 98 - 107 mmol/L [facility] Carbon Dioxide 26 22 - 31 mmol/L [facility] Anion Gap 10 5 - 15 mmol/L [facility] Calcium 8.7 8.5 - 10.5 mg/dL [facility] Est Glomerular Filtration Rate 114 >=60 mL/min/1. 73 m?? [facility] Comment: This patient's estimated GFR [...] MD CHEMISTRY ORDERABL ES Performing Organization Address [facility] de Phone Number [facility] [place] [address] * Phosphorus (11/03/2023 1:15 AM EST) Phosphorus 2.9 2.5 - 4.5 mg/dL [facility] Blood 11/03/2023 1:15 AM EST 11/03/2023 1:25 AM EST Narrative Resulting Agency Comment Spec In Lab [place] Brian MD CHEMISTRY ORDERABL ES Performing Organization Address [facility] Phone Number [facility] [place] [address] * Magnesium (11/03/2023 1:15 AM EST) Pathologist [facility] Magnesium 0.85 0.69 - 1.07 mmol/L [facility] Blood 11/03/2023 1:15 AM EST 11/03/2023 1:25 AM EST Narrative Resulting Agency Comment Spec In Lab Selma Brian MD CHEMISTRY ORDERABL ES Performing Organization Address [facility] Phone Number [facility] [place] [address] * (ABNORMAL) Differential, Automated (11/02/2023 12:45 AM EST) Neutrophil % 79.7 % [facility] Neutrophil Absolute 8.12(H) 1.70 - 6.10 x10(3)/mc L [facility] Lymph % 12.6 % [facility] Lymphocytes Abs 1.3 0.9 - 3.2 x10(3)/mc L [facility] Monocyte % 5.8 % [facility] Monocyte Abs 0.6 0.3 - 0.9 x10(3)/mc L [facility] Eos % 1.1 % [facility] Eosinophils Abs 0.1 0.0 - 0.4 x10(3)/mc L [facility] Basophil % 0.2 % [facility] Baso Absolute 0.0 0.0 - 0.1 x10(3)/mc L [facility] Immature Gran % 0.60 % [facility] Comment: Immature granulocytes(IG's)percentage and absolute count will include metamyelocytes, myelocytes, and promyelocytes. Blood smears from CBCs yielding IG's will be scanned manually for concordance. If this scan disagrees with the automated IG or if promyelocytes are noted, a manual differential will be performed. Immature Gran Absolute 0.06(H) 0.00 - 0.04 x10(3)/ L [facility] Blood 11/02/2023 12:4 5 AM EST 11/02/2023 12:50 AM EST Narrative Resulting Agency Comment Spec In Lab Monty OMER HEMATOLOGY ORDERABLE S Performing Organization Address City/State/[facility] Co de Phone Number [facility] [place] [address] * (ABNORMAL) Hemogram (11/02/2023 12:45 AM EST) White Blood Cell 10.2(H) 4.0 - 9.5 x10(3)/mc L [facility] Red Blood Cell 2.96(L) 4.58 - 5.54 x10(6)/mc L [facility] Hemoglobin 8.8(L) 13.7 - 16.5 g/dL [facility] Hematocrit 26.6(L) 40.5 - 48.5 % [facility] Mean Cell Volume 89.9 82.9 - 93.1 fL [facility] Mean Cell Hemoglobin 29.7 27.5 - 32.1 pg [facility] Mean Cell Hemoglobin Concentration 33.1 32.0 - 35.7 g/dL [facility] Platelet 316 145 - 357 x10(3)/mc L [facility] RDW Standard Deviation 46.0(H) 36.0 - 45.0 fL [facility] RDW coefficient of variation 13.9(H) 11.4 - 13.8 % [facility] Mean Platelet Volume 9.9 7.6 - 12.9 fL [facility] NRBC% auto 0.0 % [facility] NRBC Absolute 0.000 0.000 - 0.000 x10(3)/mc L [facility] Blood 11/02/2023 12:4 5 AM EST 11/02/2023 12:50 AM EST Narrative Resulting Agency Comment Spec In Lab Monty OMER HEMATOLOGY ORDERABLE S [facility] [place] [address] * (ABNORMAL) Basic Metabolic Panel (non-fasting) (11/02/2023 12:45 AM EST) Glucose 146 65 - 199 mg/dL [facility] Comment:Diabetes: >=200 mg/d L plus symptoms Blood Urea Nitrogen 7(L) 10 - 20 mg/dL [facility] Creatinine 0.67(L) 0.80 - 1.50 mg/dL [facility] Sodium 139 135 - 145 mmol/L [facility] Potassium 3.9 3.5 - 5.0 mmol/L [facility] Comment: Please note: ??Patients with WBC >100,000 may have falsely elevated Potassium levels. ??For accurate Potassium quantification in these patients send serum separator tube (gold top) for subsequent determinations. ??Contact the Clinical Chemistry Laboratory if there are any questions. Chloride 103 98 - 107 mmol/L [facility] Carbon Dioxide 27 22 - 31 mmol/L [facility] Anion Gap 9 5 - 15 mmol/L [facility] Calcium 8.2(L) 8.5 - 10.5 mg/dL [facility] Est Glomerular Filtration Rate 110 >=60 mL/min/1. 73 m?? [facility] Comment: This patient's estimated GFR [...] MD CHEMISTRY ORDERABL ES Performing Organization Address [facility] Co de Phone Number [facility] [place] [address] * (ABNORMAL) Phosphorus (11/02/2023 12:45 AM EST) Phosphorus 2.4(L) 2.5 - 4.5 mg/dL [facility] Blood 11/02/2023 12:4 5 AM EST 11/02/2023 12:50 AM EST Narrative Resulting Agency Comment Spec In Lab Selma Brian MD CHEMISTRY ORDERABL ES Performing Organization Address [facility] Co de Phone Number [facility] [place] [address] * Magnesium (11/02/2023 12:45 AM EST) Magnesium 0.88 0.69 - 1.07 mmol/L [facility] Blood 11/02/2023 12:4 5 AM EST 11/02/2023 12:50 AM EST Narrative Resulting Agency Comment Spec In Lab Selma Brian MD CHEMISTRY ORDERABL ES Performing Organization Address [facility] de Phone Number [facility] [place] [address] * POCT Glucose (11/01/2023 7:51 PM EST) Glucose, POC 129 65 - 199 mg/dL [facility] Comment: Supplemental ranges: <140 mg/dL before meals <180 mg/dL all other times of the day Blood 11/01/2023 7:51 PM EST 11/01/2023 7:51 PM EST Yessi Lopes MD POINT OF CARE T EST ORDERABLES Performing Organization Address City/[facility]/ZIP Co de Phone Number [facility] [place] [address] * Lactate, whole blood, send to lab ([facility]) (11/01/2023 4:09 PM EST) Lactate WB 0.8 0.5 - 2.2 mmol/L [facility] Blood 11/01/2023 4:09 PM EST 11/01/2023 4:15 PM EST Narrative Resulting Agency Comment Spec In Lab Yessi Lopes MD CHEMISTRY ORDER LORNA Performing Organization Address City/[facility]/ZIP Co de Phone Number [facility] [place] [address] * (ABNORMAL) Troponin (11/01/2023 4:09 PM EST) Troponin-T, High Sensitivity 60(H) <=22 ng/L [facility] Comment: This patient's troponin T [...] troponin value can be found in the [facility] Laboratory Test Catalog Troponin - [facility] Laboratory Test Catalog Reference: [place] Definition of Myocardial Infarction. Journal of the [place] [employer] 2018;72:4256-3282 Blood 11/01/2023 4:09 PM EST 11/01/2023 4:16 PM EST Narrative Resulting Agency Comment Spec In Lab Yessi Lopes MD CHEMISTRY ORDER LORNA Performing Organization Address City/[facility]/[place] [address] * Blood culture (11/01/2023 2:30 PM EST) Blood Culture No growth at 5 days. [facility] Blood STRUCTURE OF LEFT FOOT / Unknown 11/01/2023 2:30 PM EST 11/01/2023 3:03 PM EST Comment:#2 Narrative Resulting Agency Comment Spec In Lab Yessi Lopes MD MICROBIOLOGY - BLOOD ORDERABLES Performing Organization Address [facility] [place] [address] * (ABNORMAL) Differential, Automated (11/01/2023 2:20 PM EST) Neutrophil % 77.2 % [facility] Neutrophil Absolute 7.42(H) 1.70 - 6.10 x10(3)/mc L [facility] Lymph % 14.2 % [facility] Lymphocytes Abs 1.4 0.9 - 3.2 x10(3)/mc L [facility] Monocyte % 5.7 % [facility] Monocyte Abs 0.6 0.3 - 0.9 x10(3)/mc L [facility] Eos % 2.2 % [facility] Eosinophils Abs 0.2 0.0 - 0.4 x10(3)/mc L [facility] Basophil % 0.2 % [facility] Baso Absolute 0.0 0.0 - 0.1 x10(3)/mc L [facility] Immature Gran % 0.50 % [facility] Comment: Immature granulocytes(IG's)percentage and absolute count will include metamyelocytes, myelocytes, and promyelocytes. Blood smears from CBCs yielding IG's will be scanned manually for concordance. If this scan disagrees with the automated IG or if promyelocytes are noted, a manual differential will be performed. Immature Gran Absolute 0.05(H) 0.00 - 0.04 x10(3)/mc L [facility] Blood 11/01/2023 2:20 PM EST 11/01/2023 2:30 PM EST Narrative Resulting Agency Comment Spec In Lab Krystal Ortiz MD HEMATOLOGY ORDERAB LES [facility] [place] [address] * (ABNORMAL) Hemogram (11/01/2023 2:20 PM EST) White Blood Cell 9.6(H) 4.0 - 9.5 x10(3)/ L [facility] Red Blood Cell 3.22(L) 4.58 - 5.54 x10(6)/ L [facility] Hemoglobin 9.5(L) 13.7 - 16.5 g/dL [facility] Hematocrit 28.8(L) 40.5 - 48.5 % [facility] Mean Cell Volume 89.4 82.9 - 93.1 fL [facility] Mean Cell Hemoglobin 29.5 27.5 - 32.1 pg [facility] Mean Cell Hemoglobin Concentration 33.0 32.0 - 35.7 g/dL [facility] Platelet 281 145 - 357 x10(3)/mc L [facility] RDW Standard Deviation 45.7(H) 36.0 - 45.0 fL [facility] RDW coefficient of variation 14.0(H) 11.4 - 13.8 % [facility] Mean Platelet Volume 9.9 7.6 - 12.9 fL [facility] NRBC% auto 0.0 % [facility] NRBC Absolute 0.000 0.000 - 0.000 x10(3)/ L [facility] Blood 11/01/2023 2:20 PM EST 11/01/2023 2:30 PM EST Narrative Resulting Agency Comment Spec In Lab Krystal Ortiz MD HEMATOLOGY ORDERAB LES Performing Organization Address City/[facility]/ZIP Co de Phone Number [facility] [place] [address] * Blood culture (11/01/2023 2:20 PM EST) Blood Culture No growth at 5 days. [facility] Blood STRUCTURE OF RIGHT FOOT / Unknown 11/01/2023 2:20 PM EST 11/01/2023 3:03 PM EST Comment:#1 Narrative Resulting Agency Comment Spec In Lab Yessi Lopes MD MICROBIOLOGY - BLOOD ORDERABLES Performing Organization Address [facility] Co de Phone Number [facility] [place] [address] * (ABNORMAL) Troponin (11/01/2023 2:20 PM EST) Troponin-T, High Sensitivity 67(H) <=22 ng/L [facility] Comment: This patient's troponin T [...] troponin value can be found in the [facility] Laboratory Test Catalog Troponin - [facility] Test Catalog Reference: [place] Definition of Myocardial Infarction. Journal of the [place] [employer] 2018;72:3373-7109 Blood 11/01/2023 2:20 PM EST 11/01/2023 2:30 PM EST Narrative Resulting Agency Comment Spec In Lab Yessi Lopes MD CHEMISTRY ORDER LORNA [facility] [place] [address] * Phosphorus (11/01/2023 2:20 PM EST) Phosphorus 2.7 2.5 - 4.5 mg/dL [facility] Blood 11/01/2023 2:20 PM EST 11/01/2023 2:30 PM EST Narrative Resulting Agency Comment Spec In Lab Yessi Lopes MD CHEMISTRY ORDER LORNA Performing Organization Address City/[facility] Co de Phone Number [facility] [place] [address] * Magnesium (11/01/2023 2:20 PM EST) Magnesium 0.75 0.69 - 1.07 mmol/L [facility] Blood 11/01/2023 2:20 PM EST 11/01/2023 2:30 PM EST Narrative Resulting Agency Comment Spec In Lab Yessi Lopes MD CHEMISTRY ORDER LORNA Performing Organization Address City/[facility] Co de Phone Number [facility] [place] [address] * (ABNORMAL) Basic Metabolic Panel (non-fasting) (11/01/2023 2:20 PM EST) Glucose 107 65 - 199 mg/dL [facility] Comment:Diabetes: >=200 mg/d L plus symptoms Blood Urea Nitrogen 8(L) 10 - 20 mg/dL [facility] Creatinine 0.62(L) 0.80 - 1.50 mg/dL [facility] Sodium 138 135 - 145 mmol/L [facility] Potassium 4.1 3.5 - 5.0 mmol/L [facility] Comment: Please note: ??Patients with WBC >100,000 may have falsely elevated Potassium levels. ??For accurate Potassium quantification in these patients send serum separator tube (gold top) for subsequent determinations. ??Contact the Clinical Chemistry Laboratory if there are any questions. Chloride 103 98 - 107 mmol/L [facility] Carbon Dioxide 27 22 - 31 mmol/L [facility] Anion Gap 8 5 - 15 mmol/L [facility] Calcium 8.1(L) 8.5 - 10.5 mg/dL [facility] Est Glomerular Filtration Rate 112 >=60 mL/min/1. 73 m?? [facility] Comment: This patient's estimated GFR [...] Lab Yessi Lopes MD CHEMISTRY ORDER LORNA [facility] [place] [address] * XR Chest One View (11/01/2023 1:55 [...] care provider that requested your imaging first. Yessi Lopes MD IMG DX ORDERABL ES * EKG 12 Lead (11/01/2023 1:44 PM EST) Ventricular rate 91 BPM MUSE SYSTEM Atrial Rate 91 BPM MUSE SYSTEM P-R Interval 144 ms MUSE SYSTEM QRS Duration 92 ms MUSE SYSTEM Q-T Interval 374 ms MUSE SYSTEM QTC Calculated (Bezet) 460 ms MUSE SYSTEM Calculated P Carpenter 72 degrees MUSE SYSTEM Calculated R Carpenter -30 degrees MUSE SYSTEM Calculated T Carpenter 71 degrees MUSE SYSTEM INTERPRETATION Normal sinus [...] 12:28 AM EST) Neutrophil % 71.2 % [facility] Neutrophil Absolute 5.85 1.70 - 6.10 x10(3)/mc L [facility] Lymph % 17.9 % [facility] Lymphocytes Abs 1.5 0.9 - 3.2 x10(3)/mc L [facility] Monocyte % 7.1 % [facility] Monocyte Abs 0.6 0.3 - 0.9 x10(3)/mc L [facility] Eos % 2.9 % [facility] Eosinophils Abs 0.2 0.0 - 0.4 x10(3)/mc L [facility] Basophil % 0.2 % [facility] Baso Absolute 0.0 0.0 - 0.1 x10(3)/mc L [facility] Immature Gran % 0.70 % [facility] Comment: Immature granulocytes(IG's)percentage and absolute count will include metamyelocytes, myelocytes, and promyelocytes. Blood smears from CBCs yielding IG's will be scanned manually for concordance. If this scan disagrees with the automated IG or if promyelocytes are noted, a manual differential will be performed. Immature Gran Absolute 0.06(H) 0.00 - 0.04 x10(3)/mc L [facility] Blood 11/01/2023 12:2 8 AM EST 11/01/2023 12:44 AM EST Narrative Resulting Agency Comment Spec In Lab Monty OMER HEMATOLOGY ORDERABLE S Performing Organization Address City/[facility] Co de Phone Number [facility] [place] [address] * (ABNORMAL) Hemogram (11/01/2023 12:28 AM EST) White Blood Cell 8.2 4.0 - 9.5 x10(3)/mc L [facility] Red Blood Cell 3.10(L) 4.58 - 5.54 x10(6)/mc L [facility] Hemoglobin 9.2(L) 13.7 - 16.5 g/dL [facility] Hematocrit 28.0(L) 40.5 - 48.5 % [facility] Mean Cell Volume 90.3 82.9 - 93.1 fL [facility] Mean Cell Hemoglobin 29.7 27.5 - 32.1 pg [facility] Mean Cell Hemoglobin Concentration 32.9 32.0 - 35.7 g/dL [facility] Platelet 267 145 - 357 x10(3)/mc L [facility] RDW Standard Deviation 47.4(H) 36.0 - 45.0 fL [facility] RDW coefficient of variation 14.3(H) 11.4 - 13.8 % [facility] Mean Platelet Volume 9.8 7.6 - 12.9 fL [facility] NRBC% auto 0.0 % [facility] NRBC Absolute 0.000 0.000 - 0.000 x10(3)/mc L [facility] Blood 11/01/2023 12:2 8 AM EST 11/01/2023 12:44 AM EST Narrative Resulting Agency Comment Spec In Lab Monty OMER HEMATOLOGY ORDERABLE S Performing Organization Address City/[facility] Co de Phone Number [facility] [place] [address] * (ABNORMAL) Basic Metabolic Panel (non-fasting) (11/01/2023 12:28 AM EST) Glucose 105 65 - 199 mg/dL [facility] Comment:Diabetes: >=200 mg/d L plus symptoms Blood Urea Nitrogen 9(L) 10 - 20 mg/dL [facility] Creatinine 0.67(L) 0.80 - 1.50 mg/dL [facility] Sodium 143 135 - 145 mmol/L [facility] Potassium 4.5 3.5 - 5.0 mmol/L [facility] Comment: Please note: ??Patients with WBC >100,000 may have falsely elevated Potassium levels. ??For accurate Potassium quantification in these patients send serum separator tube (gold top) for subsequent determinations. ??Contact the Clinical Chemistry Laboratory if there are any questions. Chloride 107 98 - 107 mmol/L [facility] Carbon Dioxide 30 22 - 31 mmol/L [facility] Anion Gap 6 5 - 15 mmol/L [facility] Calcium 8.2(L) 8.5 - 10.5 mg/dL [facility] Est Glomerular Filtration Rate 110 >=60 mL/min/1. 73 m?? [facility] Comment: This patient's estimated GFR [...] Lab Selma Brian MD CHEMISTRY ORDERABL ES [facility] [place] [address] * Phosphorus (11/01/2023 12:28 AM EST) Phosphorus 3.6 2.5 - 4.5 mg/dL [facility] Blood 11/01/2023 12:2 8 AM EST 11/01/2023 12:44 AM EST Narrative Resulting Agency Comment Spec In Lab Selma Brian MD CHEMISTRY ORDERABL ES Performing Organization Address [facility] [place] [address] * Magnesium (11/01/2023 12:28 AM EST) Magnesium 0.86 0.69 - 1.07 mmol/L [facility] Blood 11/01/2023 12:2 8 AM EST 11/01/2023 12:44 AM EST Narrative Resulting Agency Comment Spec In Lab Selma Brian MD CHEMISTRY ORDERABL ES Performing Organization Address [facility] de Phone Number [facility] [place] [address] * XR Chest One View (10/31/2023 8:12 [...] care provider that requested your imaging first. Yessi Lopes MD IMG DX ORDERABL ES * Phosphorus (10/31/2023 12:05 AM EST) Phosphorus 3.3 2.5 - 4.5 mg/dL [facility] Blood 10/31/2023 12:0 5 AM EST 10/31/2023 12:23 AM EST Narrative Resulting Agency Comment Spec In Lab Selma Brian MD CHEMISTRY ORDERABL ES Performing Organization Address [facility] Co de Phone Number [facility] [place] [address] * Magnesium (10/31/2023 12:05 AM EST) Magnesium 0.77 0.69 - 1.07 mmol/L [facility] Blood 10/31/2023 12:0 5 AM EST 10/31/2023 12:23 AM EST Narrative Resulting Agency Comment Spec In Lab Selma Brian MD CHEMISTRY ORDERABL ES Performing Organization Address [facility] Co de Phone Number [facility] [place] [address] * Blood culture (10/30/2023 1:00 PM EST) Blood Culture No growth at 5 days. [facility] Blood STRUCTURE OF RIGHT HAND / Unknown 10/30/2023 1:00 PM EST 10/30/2023 1:31 PM EST Comment:#2 Narrative Resulting Agency Comment Spec In Lab Yessi Lopes MD MICROBIOLOGY - BLOOD ORDERABLES Performing Organization Address [facility] Co de Phone Number [facility] [place] [address] * (ABNORMAL) Blood culture (10/30/2023 12:55 PM EST) Blood Culture Coagulase negative Staphylococcus species isolated : two morphologies Interpretation of the importance of skin daphne such as Coagulase Negative Staph, Viridans Strep, Corynebacteria and other Gram Positive organisms from a single Blood Culture set requires clinical correlation. (A) [facility] Gram Stain Anaerobic Growth detected in anaerobic bottle. Gram Positive Cocci in clusters seen (A) [facility] Gram Stain Aerobic Growth detected in aerobic bottle. Gram Positive Cocci in clusters seen (A) [facility] Organism Coagulase negative Staphylococcus species(A) [facility] Organism Gram Positive Cocci in clusters(A) [facility] Blood STRUCTURE OF LEFT FOOT / Unknown 10/30/2023 12:55 PM EST 10/30/2023 1:31 PM EST Comment:#1 Narrative Resulting Agency Comment Spec In Lab Yessi Lopes MD MICROBIOLOGY - BLOOD ORDERABLES Performing Organization Address [facility] [place] [address] * Valproic Acid Level, Total (10/30/2023 10:05 AM EST) Valproic Acid 19 mg/L [facility] Comment: Therapeutic Range: Anticonvulsant Therapy: ??50-100 mg/L Manic Episodes Associated with Bipolar Disorder: ??50-125 mg/L Blood 10/30/2023 10:0 5 AM EST 10/30/2023 10:21 AM EST Narrative Resulting Agency Comment Spec In Lab Eliane Mcallister APRN CHEMISTRY ORDERABL ES Performing Organization Address [facility] [place] [address] * (ABNORMAL) Differential, Automated (10/30/2023 12:07 AM EST) Neutrophil % 67.0 % [facility] Neutrophil Absolute 5.04 1.70 - 6.10 x10(3)/mc L [facility] Lymph % 18.2 % [facility] [address] [facility] Lymphocytes Abs 1.4 0.9 - 3.2 x10(3)/mc L [facility] Monocyte % 12.9 % [facility] Monocyte Abs 1.0(H) 0.3 - 0.9 x10(3)/mc L [facility] Eos % 0.8 % [facility] Eosinophils Abs 0.1 0.0 - 0.4 x10(3)/mc L [facility] Basophil % 0.4 % [facility] Baso Absolute 0.0 0.0 - 0.1 x10(3)/mc L [facility] Immature Gran % 0.70 % [facility] Comment: Immature granulocytes(IG's)percentage and absolute count will include metamyelocytes, myelocytes, and promyelocytes. Blood smears from CBCs yielding IG's will be scanned manually for concordance. If this scan disagrees with the automated IG or if promyelocytes are noted, a manual differential will be performed. Immature Gran Absolute 0.05(H) 0.00 - 0.04 x10(3)/mc L [facility] Blood 10/30/2023 12:0 7 AM EST 10/30/2023 12:15 AM EST Narrative Resulting Agency Comment Spec In Lab Jeronimo Robins MD HEMATOLOGY ORDERABLE S [facility] [place] [address] * (ABNORMAL) Hemogram (10/30/2023 12:07 AM EST) White Blood Cell 7.5 4.0 - 9.5 x10(3)/mc L [facility] Red Blood Cell 3.17(L) 4.58 - 5.54 x10(6)/mc L [facility] Hemoglobin 9.4(L) 13.7 - 16.5 g/dL [facility] Hematocrit 28.1(L) 40.5 - 48.5 % [facility] Mean Cell Volume 88.6 82.9 - 93.1 fL [facility] Mean Cell Hemoglobin 29.7 27.5 - 32.1 pg [facility] Mean Cell Hemoglobin Concentration 33.5 32.0 - 35.7 g/dL [facility] Platelet 188 145 - 357 x10(3)/mc L [facility] RDW Standard Deviation 46.1(H) 36.0 - 45.0 fL [facility] RDW coefficient of variation 14.2(H) 11.4 - 13.8 % [facility] Mean Platelet Volume 10.1 7.6 - 12.9 fL [facility] NRBC% auto 0.0 % [facility] NRBC Absolute 0.000 0.000 - 0.000 x10(3)/mc L [facility] Blood 10/30/2023 12:0 7 AM EST 10/30/2023 12:15 AM EST Narrative Resulting Agency Comment Spec In Lab Jeronimo Robins MD HEMATOLOGY ORDERABLE S Performing Organization Address City/State/[facility] Co de Phone Number [facility] [address] * (ABNORMAL) Basic Metabolic Panel (non-fasting) (10/30/2023 12:07 AM EST) Glucose 117 65 - 199 mg/dL [facility] Comment:Diabetes: >=200 mg/d L plus symptoms Blood Urea Nitrogen 8(L) 10 - 20 mg/dL [facility] Creatinine 0.74(L) 0.80 - 1.50 mg/dL [facility] Sodium 141 135 - 145 mmol/L [facility] Potassium 4.0 3.5 - 5.0 mmol/L [facility] Comment: Please note: ??Patients with WBC >100,000 may have falsely elevated Potassium levels. ??For accurate Potassium quantification in these patients send serum separator tube (gold top) for subsequent determinations. ??Contact the Clinical Chemistry Laboratory if there are any questions. Chloride 104 98 - 107 mmol/L [facility] Carbon Dioxide 28 22 - 31 mmol/L [facility] Anion Gap 9 5 - 15 mmol/L [facility] Calcium 7.9(L) 8.5 - 10.5 mg/dL [facility] Est Glomerular Filtration Rate 106 >=60 mL/min/1. 73 m?? [facility] Comment: This patient's estimated GFR [...] MD CHEMISTRY ORDERABL ES Performing Organization Address City/[facility] Co de Phone Number [facility] [place] [address] * (ABNORMAL) Phosphorus (10/30/2023 12:07 AM EST) Phosphorus 1.9(L) 2.5 - 4.5 mg/dL [facility] Blood 10/30/2023 12:0 7 AM EST 10/30/2023 12:16 AM EST Narrative Resulting Agency Comment Spec In Lab Selma Brian MD CHEMISTRY ORDERABL ES Performing Organization Address [facility] Co de Phone Number [facility] [place] [address] * Magnesium (10/30/2023 12:07 AM EST) Magnesium 0.86 0.69 - 1.07 mmol/L [facility] Blood 10/30/2023 12:0 7 AM EST 10/30/2023 12:16 AM EST Narrative Resulting Agency Comment Spec In Lab Selma Brian MD CHEMISTRY ORDERABL ES Performing Organization Address [facility] de Phone Number [facility] [place] [address] * MRSA PCR Screen ([facility]/CGP/APD/NLH) (10/29/2023 6:48 AM EST) MRSA PCR Negative Negative [facility] MRSA (Interp) Methicillin-resist ant Staphylococcus aureus (MRSA) is NOT DETECTED The MRSA target DNA sequences (mec and SCC) were not detected within the acceptable ranges using the Xpert MRSA NxG on the GeneXpert Dx System ([employer]). This suggests the absence of MRSA in the patient specimen submitted for testing. This test is cleared by the U.S. Food and Drug Administration for clinical use and its performance characteristics have been verified by the [facility] at [facility]. This result does not rule out the presence of any other organisms. Rare false negative results may occur if MRSA is present at low concentrations with much higher concentrations of other organisms including MRSE or S. aureus with an empty SCC cassette. [facility] Comment: [VERIFIED DATE]10.29.23 Verified By:Katherine Early (Electronic Signature) Nasopharyngeal Swab 10/29/20 6:48 AM EST 10/29/2023 8:32 AM EST Comment:Specimen Type->Nasop haryngeal Swab Narrative Resulting Agency Comment Spec In Lab Selma Brian MD MOLECULAR ORDERABL ES [facility] [place] [address] * XR Chest One View (10/29/2023 6:20 [...] right upper extremity obscuring part of the [id number]. Left chest wall subcutaneous port with tip [...] the right upper extremity obscuring part ofthe [id number]. Left chest wall subcutaneous port with tip [...] care provider that requested your imaging first. Selma Brian MD IMG DX ORDERABLES * (ABNORMAL) Phosphorus (10/29/2023 12:28 AM EST) Phosphorus 2.3(L) 2.5 - 4.5 mg/dL [facility] Blood Venous Draw / Unknown 10/29/2023 12:28 AM EST 10/29/2023 12:35 AM EST Narrative Resulting Agency Comment Spec In Lab Marley Madrigal MD CHEMISTRY ORDERA BLES Performing Organization Address City/[facility]/ZIP Co de Phone Number [facility] [place] [address] * (ABNORMAL) Magnesium (10/29/2023 12:28 AM EST) Pathologist [facility] Magnesium 0.60(L) 0.69 - 1.07 mmol/L [facility] Blood Venous Draw / Unknown 10/29/2023 12:28 AM EST 10/29/2023 12:35 AM EST Narrative Resulting Agency Comment Spec In Lab Marley Madrigal MD CHEMISTRY ORDERA BLES Performing Organization Address [facility] Co de Phone Number [facility] [place] [address] * (ABNORMAL) Differential, Automated (10/29/2023 12:28 AM EST) Pathologist [facility] Neutrophil % 73.2 % [facility] Neutrophil Absolute 5.40 1.70 - 6.10 x10(3)/mc L [facility] Lymph % 13.3 % [facility] Lymphocytes Abs 1.0 0.9 - 3.2 x10(3)/mc L [facility] Monocyte % 11.8 % [facility] Monocyte Abs 0.9 0.3 - 0.9 x10(3)/mc L [facility] Eos % 0.5 % [facility] Eosinophils Abs 0.0 0.0 - 0.4 x10(3)/mc L [facility] Basophil % 0.3 % [facility] Baso Absolute 0.0 0.0 - 0.1 x10(3)/mc L [facility] Immature Gran % 0.90 % [facility] Comment: Immature granulocytes(IG's)percentage and absolute count will include metamyelocytes, myelocytes, and promyelocytes. Blood smears from CBCs yielding IG's will be scanned manually for concordance. If this scan disagrees with the automated IG or if promyelocytes are noted, a manual differential will be performed. Immature Gran Absolute 0.07(H) 0.00 - 0.04 x10(3)/mc L [facility] Blood 10/29/2023 12:2 8 AM EST 10/29/2023 12:35 AM EST Narrative Resulting Agency Comment Spec In Lab Jeronimo Robins MD HEMATOLOGY ORDERABLE S Performing Organization Address City/[facility]/ZIP Co de Phone Number [facility] [place] [address] * (ABNORMAL) Hemogram (10/29/2023 12:28 AM EST) White Blood Cell 7.4 4.0 - 9.5 x10(3)/mc L [facility] Red Blood Cell 3.18(L) 4.58 - 5.54 x10(6)/mc L [facility] Hemoglobin 9.4(L) 13.7 - 16.5 g/dL [facility] Hematocrit 28.2(L) 40.5 - 48.5 % [facility] Mean Cell Volume 88.7 82.9 - 93.1 fL [facility] Mean Cell Hemoglobin 29.6 27.5 - 32.1 pg [facility] Mean Cell Hemoglobin Concentration 33.3 32.0 - 35.7 g/dL [facility] Platelet 150 145 - 357 x10(3)/mc L [facility] RDW Standard Deviation 45.4(H) 36.0 - 45.0 fL [facility] RDW coefficient of variation 13.9(H) 11.4 - 13.8 % [facility] Mean Platelet Volume 10.3 7.6 - 12.9 fL [facility] NRBC% auto 0.0 % [facility] NRBC Absolute 0.000 0.000 - 0.000 x10(3)/mc L [facility] Blood 10/29/2023 12:2 8 AM EST 10/29/2023 12:35 AM EST Narrative Resulting Agency Comment Spec In Lab Jeronimo Robins MD HEMATOLOGY ORDERABLE S Performing Organization Address City/[facility] Co de Phone Number [facility] [place] [address] * (ABNORMAL) Basic Metabolic Panel (non-fasting) (10/29/2023 12:28 AM EST) Glucose 130 65 - 199 mg/dL [facility] Comment:Diabetes: >=200 mg/d L plus symptoms Blood Urea Nitrogen 10 10 - 20 mg/dL [facility] Creatinine 0.76(L) 0.80 - 1.50 mg/dL [facility] Sodium 141 135 - 145 mmol/L [facility] Potassium 3.8 3.5 - 5.0 mmol/L [facility] Comment: Please note: ??Patients with WBC >100,000 may have falsely elevated Potassium levels. ??For accurate Potassium quantification in these patients send serum separator tube (gold top) for subsequent determinations. ??Contact the Clinical Chemistry Laboratory if there are any questions. Chloride 104 98 - 107 mmol/L [facility] Carbon Dioxide 27 22 - 31 mmol/L [facility] Anion Gap 10 5 - 15 mmol/L [facility] Calcium 8.2(L) 8.5 - 10.5 mg/dL [facility] Est Glomerular Filtration Rate 105 >=60 mL/min/1. 73 m?? [facility] Comment: This patient's estimated GFR [...] Lab Selma Brian MD CHEMISTRY ORDERABL ES [facility] [place] [address] * ECHO COMPLETE W CONTRAST (10/28/2023 3:48 PM EST) EF 66 HEARTLAB SYSTEM Anatomical Region Laterality Modality Cardiac Other 10/28/2023 2:09 PM EST Narrative 10/28/2023 4:37 PM EST [address] [place] [address] ? Echocardiogram Report Name: NIGHAT BARRIOS ? Study Date: 10/28/2023 02:09 PM ? Patient Location: [facility]US IC10 A : 1965 ? Height: 188 cm ? Account: [id number] Age: 58 yrs ? Weight: 82 kg Gender: Male ?BSA: 2.1 m2 Ordering Physician: SELMA BRIAN Referring Physician: SAL BARR Performed By: SHYLA Sherman Reason For Study: Oxygen desaturation Interpreting Fellow: Antonette Hernandez. Exam Location: [facility]. Interpretation Summary Mild left ventricular chamber dilatation. Mildly increased thickness of the basal septum without LVOT obstruction. The LVEF is 66% by Matthew's without segmental wall motion abnormalities. Normal right ventricular size and systolic function. No hemodynamically significant valve disease. No prior study for comparison. Procedure Complete-13242. Image enhancement Definity was used for left [...] Note Lobo Jones MD - 10/28/2023 1 [place] [address] Echocardiogram Report Name: NIGHAT BARRIOS Study Date: 302:09 PM Patient Location: [address] : 1965 Height: 188 cm Account: [id number] Age: 58 yrs Weight: 82 kg Gender: Male BSA: 2.1 m2 Ordering Physician: SELMA BRIAN Referring Physician: SAL BARR Performed By: SHYLA Sherman Reason For Study: Oxygen desaturation Interpreting Fellow: Antonette Hernandez. Exam Location: [facility]. Interpretation Summary Mild left ventricular chamber dilatation. Mildly increased thickness ofthe basal septum without LVOT obstruction. The LVEF is 66% by Matthew's withoutsegmental wall motion abnormalities. Normal right ventricular size and systolic function. No hemodynamically significant valve disease. No prior study for comparison. Procedure Complete-60220. Image enhancement Definity was used for left [...] care provider that requested your imaging first. Yessi Lopes [...] provider that requested your imaging first. ? Electronically signed by: Rajinder Eric MD, [facility] ??([phone]), at 10/28/2023 1:21 PM Narrative 10/28/2023 1:21 [...] administration of contrast, Administered 94.0 ml of [id number] mg/ml. Thin-section reconstructions as well as coronal [...] care provider that requested your imaging first. Selma Brian MD IMG CT ORDERABLES * Blood culture (10/28/2023 9:22 AM EST) Blood Culture No growth at 5 days. [facility] Blood STRUCTURE OF LEFT FOOT / Unknown 10/28/2023 9:22 AM EST 10/28/2023 9:54 AM EST Comment:#2 Narrative Resulting Agency Comment Spec In Lab Selma Brian MD MICROBIOLOGY - BLO OD ORDERABLES Performing Organization Address [facility] Co de Phone Number [facility] [place] [address] * Blood culture (10/28/2023 9:10 AM EST) Blood Culture No growth at 5 days. [facility] Blood STRUCTURE OF RIGHT HAND / Unknown 10/28/2023 9:10 AM EST 10/28/2023 9:55 AM EST Comment:#1 Narrative Resulting Agency Comment Spec In Lab Selma Brian MD MICROBIOLOGY - BLO OD ORDERABLES Performing Organization Address [facility] Co de Phone Number [facility] [place] [address] * (ABNORMAL) BLOOD GAS 2 ARTERIAL (10/28/2023 6:04 AM EST) pH, Arterial 7.40 7.35 - 7.45 [facility] PCO2, Arterial 41 35 - 45 mmHg [facility] PO2, Arterial 64(L) 85 - 104 mmHg [facility] Bicarbonate, Arterial 24.9 20.0 - 26.0 mmol/L [facility] Base Excess, Arterial 0.1 -3.0 - 3.0 mmol/L [facility] Hgb Blood Gas 12.9(L) 13.7 - 16.5 g/dL [facility] Oxyhemoglobin, Arterial 92.1(L) 94.0 - 97.0 % [facility] Carboxyhemoglob in, Arterial 0.3 % [facility] Comment: Nonsmokers: 0.5-1.5% COHB Smokers: Variable, but usually less than 10% Toxic: 20-30% COHB Lethal: Greater than 60% COHB Methemoglobin, Arterial 0.3 <=1.5 % [facility] Na Whole Blood 139 135 - 145 mmol/L [facility] K Whole Blood 3.5 3.5 - 5.0 mmol/L [facility] Comment: Please note: Patients with WBC >100,000 may have falsely elevated Potassium levels. Contact the Clinical Chemistry Laboratory if there are any questions. ICa Whole Blood 1.12(L) 1.15 - 1.33 mmol/L [facility] Comment: Note: ??Total bilirubin higher than 20 mg/dL may lead to falsely low ionized calcium. CL Whole Blood 104 98 - 107 mmol/L [facility] Gluc Whole Bld 129 65 - 199 mg/dL [facility] Comment:Diabetes: >=200 mg/d L plus symptoms. Lactate WB 1.0 0.5 - 2.2 mmol/L [facility] FIO2 Art 60 % [facility] PF Ratio Art 107 [facility] Blood 10/28/2023 6:04 AM EST 10/28/2023 6:04 AM EST Selma Brian MD POINT OF CARE TEST ORDERABLES [facility] [place] [address] * (ABNORMAL) BLOOD GAS 2 VENOUS (10/28/2023 4:36 AM EST) pH, Venous 7.37 7.32 - 7.42 [facility] PCO2, Venous 44 41 - 51 mmHg [facility] PO2, Venous 34 25 - 40 mmHg [facility] Bicarbonate, Venous 24.8 mmol/L [facility] Base Excess, Venous -0.5 mmol/L [facility] Hgb Blood Gas 11.0(L) 13.7 - 16.5 g/dL [facility] Oxyhemoglobin, Venous 66.4 % [facility] Carboxyhemoglob in, Venous 0.3 % [facility] Comment: Nonsmokers: 0.5-1.5% COHB Smokers: Variable, but usually less than 10% Toxic: 20-30% COHB Lethal: Greater than 60% COHB Methemoglobin, Venous 0.4 <=1.5 % [facility] Na Whole Blood 139 135 - 145 mmol/L [facility] K Whole Blood 3.4(L) 3.5 - 5.0 mmol/L [facility] Comment: Please note: Patients with WBC >100,000 may have falsely elevated Potassium levels. Contact the Clinical Chemistry Laboratory if there are any questions. ICa Whole Blood 1.13(L) 1.15 - 1.33 mmol/L [facility] Comment: Note: ??Total bilirubin higher than 20 mg/dL may lead to falsely low ionized calcium. CL Whole Blood 104 98 - 107 mmol/L [facility] Gluc Whole Bld 120 65 - 199 mg/dL [facility] Comment:Diabetes: >=200 mg/d L plus symptoms Lactate WB 0.8 0.5 - 2.2 mmol/L [facility] Fraction of Inspired Oxygen, Venous 60 % [facility] Blood Gas Source Venous [facility] Blood 10/28/2023 4:36 AM EST 10/28/2023 4:36 AM EST Selma Brian MD POINT OF CARE TEST ORDERABLES [facility] [place] [address] * EKG 12 Lead (10/28/2023 4:01 AM EST) Ventricular rate 94 BPM MUSE SYSTEM Atrial Rate 94 BPM MUSE SYSTEM P-R Interval 150 ms MUSE SYSTEM QRS Duration 106 ms MUSE SYSTEM Q-T Interval 354 ms MUSE SYSTEM QTC Calculated (Bezet) 442 ms MUSE SYSTEM Calculated P Carpenter 70 degrees MUSE SYSTEM Calculated R Carpenter 4 degrees MUSE SYSTEM Calculated T Carpenter 66 degrees MUSE SYSTEM INTERPRETATION Normal sinus [...] care provider that requested your imaging first. Selma Brian MD IMG DX ORDERABLES * (ABNORMAL) Differential, Automated (10/28/2023 12:12 AM EST) Neutrophil % 78.7 % [facility] Neutrophil Absolute 6.64(H) 1.70 - 6.10 x10(3)/mc L [facility] Lymph % 12.7 % [facility] Lymphocytes Abs 1.1 0.9 - 3.2 x10(3)/mc L [facility] Monocyte % 6.6 % [facility] Monocyte Abs 0.6 0.3 - 0.9 x10(3)/mc L [facility] Eos % 0.9 % [facility] Eosinophils Abs 0.1 0.0 - 0.4 x10(3)/mc L [facility] Basophil % 0.4 % [facility] Baso Absolute 0.0 0.0 - 0.1 x10(3)/mc L [facility] Immature Gran % 0.70 % [facility] Comment: Immature granulocytes(IG's)percentage and absolute count will include metamyelocytes, myelocytes, and promyelocytes. Blood smears from CBCs yielding IG's will be scanned manually for concordance. If this scan disagrees with the automated IG or if promyelocytes are noted, a manual differential will be performed. Immature Gran Absolute 0.06(H) 0.00 - 0.04 x10(3)/mc L [facility] Blood 10/28/2023 12:1 2 AM EST 10/28/2023 12:19 AM EST Narrative Resulting Agency Comment Spec In Lab Amelia Ngo MD HEMATOLOGY ORDERABLE S [facility] [place] [address] * (ABNORMAL) Hemogram (10/28/2023 12:12 AM EST) White Blood Cell 8.4 4.0 - 9.5 x10(3)/mc L [facility] Red Blood Cell 3.24(L) 4.58 - 5.54 x10(6)/mc L [facility] Hemoglobin 9.7(L) 13.7 - 16.5 g/dL [facility] Hematocrit 28.8(L) 40.5 - 48.5 % [facility] Mean Cell Volume 88.9 82.9 - 93.1 fL [facility] Mean Cell Hemoglobin 29.9 27.5 - 32.1 pg [facility] Mean Cell Hemoglobin Concentration 33.7 32.0 - 35.7 g/dL [facility] Platelet 149 145 - 357 x10(3)/mc L [facility] RDW Standard Deviation 46.2(H) 36.0 - 45.0 fL [facility] RDW coefficient of variation 14.2(H) 11.4 - 13.8 % [facility] Mean Platelet Volume 11.1 7.6 - 12.9 fL [facility] NRBC% auto 0.0 % [facility] NRBC Absolute 0.000 0.000 - 0.000 x10(3)/mc L [facility] Blood 10/28/2023 12:1 2 AM EST 10/28/2023 12:19 AM EST Narrative Resulting Agency Comment Spec In Lab Amelia Ngo MD HEMATOLOGY ORDERABLE S [facility] [place] [address] * (ABNORMAL) Basic Metabolic Panel (non-fasting) (10/28/2023 12:12 AM EST) Glucose 94 65 - 199 mg/dL [facility] Comment:Diabetes: >=200 mg/d L plus symptoms Blood Urea Nitrogen 13 10 - 20 mg/dL [facility] Creatinine 0.82 0.80 - 1.50 mg/dL [facility] Sodium 142 135 - 145 mmol/L [facility] Potassium 3.7 3.5 - 5.0 mmol/L [facility] Comment: Please note: ??Patients with WBC >100,000 may have falsely elevated Potassium levels. ??For accurate Potassium quantification in these patients send serum separator tube (gold top) for subsequent determinations. ??Contact the Clinical Chemistry Laboratory if there are any questions. Chloride 108(H) 98 - 107 mmol/L [facility] Carbon Dioxide 24 22 - 31 mmol/L [facility] Anion Gap 10 5 - 15 mmol/L [facility] Calcium 8.2(L) 8.5 - 10.5 mg/dL [facility] Est Glomerular Filtration Rate 103 >=60 mL/min/1. 73 m?? [facility] Comment: This patient's estimated GFR [...] MD CHEMISTRY ORDERABL ES Performing Organization Address City/[facility]/ZIP Co de Phone Number [facility] [place] [address] * POCT Glucose (10/27/2023 12:38 PM EST) Glucose, POC 92 65 - 199 mg/dL [facility] Comment: Supplemental ranges: <140 mg/dL before meals <180 mg/dL all other times of the day Blood 10/27/2023 12:3 8 PM EST 10/27/2023 12:38 PM EST Selma Brian MD POINT OF CARE TEST ORDERABLES Performing Organization Address [facility] Co de Phone Number [facility] [place] [address] * POCT Glucose (10/27/2023 8:01 AM EST) Glucose, POC 104 65 - 199 mg/dL [facility] Comment: Supplemental ranges: <140 mg/dL before meals <180 mg/dL all other times of the day Blood 10/27/2023 8:01 AM EST 10/27/2023 8:01 AM EST Selma Brian MD POINT OF CARE TEST ORDERABLES Performing Organization Address [facility] Co de Phone Number [facility] [place] [address] * POCT Glucose (10/27/2023 3:51 AM EST) Glucose, POC 86 65 - 199 mg/dL [facility] Comment: Supplemental ranges: <140 mg/dL before meals <180 mg/dL all other times of the day Blood 10/27/2023 3:51 AM EST 10/27/2023 3:51 AM EST Selma Brian MD POINT OF CARE TEST ORDERABLES [facility] [place] [address] * POCT Glucose (10/27/2023 12:44 AM EST) Glucose, POC 86 65 - 199 mg/dL [facility] Comment: Supplemental ranges: <140 mg/dL before meals <180 mg/dL all other times of the day Blood 10/27/2023 12:4 4 AM EST 10/27/2023 12:44 AM EST Selma Brian MD POINT OF CARE TEST ORDERABLES [facility] [place] [address] * (ABNORMAL) Differential, Automated (10/27/2023 12:37 AM EST) Pathologist [facility] Neutrophil % 83.0 % [facility] Neutrophil Absolute 12.68(H) 1.70 - 6.10 x10(3)/mc L [facility] Lymph % 9.6 % [facility] Lymphocytes Abs 1.5 0.9 - 3.2 x10(3)/mc L [facility] Monocyte % 4.8 % [facility] Monocyte Abs 0.7 0.3 - 0.9 x10(3)/mc L [facility] Eos % 1.6 % [facility] Eosinophils Abs 0.2 0.0 - 0.4 x10(3)/mc L [facility] Basophil % 0.2 % [facility] Baso Absolute 0.0 0.0 - 0.1 x10(3)/mc L [facility] Immature Gran % 0.80 % [facility] Comment: Immature granulocytes(IG's)percentage and absolute count will include metamyelocytes, myelocytes, and promyelocytes. Blood smears from CBCs yielding IG's will be scanned manually for concordance. If this scan disagrees with the automated IG or if promyelocytes are noted, a manual differential will be performed. Immature Gran Absolute 0.12(H) 0.00 - 0.04 x10(3)/mc L [facility] Blood 10/27/2023 12:3 7 AM EST 10/27/2023 12:49 AM EST Narrative Resulting Agency Comment Spec In Lab Amelia Ngo MD HEMATOLOGY ORDERABLE S [facility] [place] [address] * (ABNORMAL) Hemogram (10/27/2023 12:37 AM EST) White Blood Cell 15.3(H) 4.0 - 9.5 x10(3)/ L [facility] Red Blood Cell 3.26(L) 4.58 - 5.54 x10(6)/mc L [facility] Hemoglobin 9.8(L) 13.7 - 16.5 g/dL [facility] Hematocrit 28.8(L) 40.5 - 48.5 % [facility] Mean Cell Volume 88.3 82.9 - 93.1 fL [facility] Mean Cell Hemoglobin 30.1 27.5 - 32.1 pg [facility] Mean Cell Hemoglobin Concentration 34.0 32.0 - 35.7 g/dL [facility] Platelet 160 145 - 357 x10(3)/mc L [facility] RDW Standard Deviation 47.3(H) 36.0 - 45.0 fL [facility] RDW coefficient of variation 14.4(H) 11.4 - 13.8 % [facility] Mean Platelet Volume 10.7 7.6 - 12.9 fL [facility] NRBC% auto 0.0 % [facility] NRBC Absolute 0.000 0.000 - 0.000 x10(3)/ L [facility] Blood 10/27/2023 12:3 7 AM EST 10/27/2023 12:49 AM EST Narrative Resulting Agency Comment Spec In Lab Amelia Ngo MD HEMATOLOGY ORDERABLE S Performing Organization Address City/[facility]/ZIP Co de Phone Number [facility] [place] [address] * (ABNORMAL) Phosphorus (10/27/2023 12:37 AM EST) Phosphorus 2.4(L) 2.5 - 4.5 mg/dL [facility] Blood 10/27/2023 12:3 7 AM EST 10/27/2023 12:49 AM EST Narrative Resulting Agency Comment Spec In Lab Yoel Sethi Jr., MD CHEMISTRY SAMUEL FRANCISCO Performing Organization Address [facility] Co de Phone Number [facility] [place] [address] * Magnesium (10/27/2023 12:37 AM EST) Magnesium 0.91 0.69 - 1.07 mmol/L [facility] Blood 10/27/2023 12:3 7 AM EST 10/27/2023 12:49 AM EST Narrative Resulting Agency Comment Spec In Lab Yoel Sethi Jr., MD CHEMISTRY SAMUEL FRANCISCO Performing Organization Address [facility] de Phone Number [facility] [place] [address] * (ABNORMAL) Basic Metabolic Panel (non-fasting) (10/27/2023 12:37 AM EST) Glucose 83 65 - 199 mg/dL [facility] Comment:Diabetes: >=200 mg/d L plus symptoms Blood Urea Nitrogen 19 10 - 20 mg/dL [facility] Creatinine 0.87 0.80 - 1.50 mg/dL [facility] Sodium 141 135 - 145 mmol/L [facility] Potassium 3.6 3.5 - 5.0 mmol/L [facility] Comment: Please note: ??Patients with WBC >100,000 may have falsely elevated Potassium levels. ??For accurate Potassium quantification in these patients send serum separator tube (gold top) for subsequent determinations. ??Contact the Clinical Chemistry Laboratory if there are any questions. Chloride 110(H) 98 - 107 mmol/L [facility] Carbon Dioxide 21(L) 22 - 31 mmol/L [facility] Anion Gap 10 5 - 15 mmol/L [facility] Calcium 8.1(L) 8.5 - 10.5 mg/dL [facility] Est Glomerular Filtration Rate 101 >=60 mL/min/1. 73 m?? [facility] Comment: This patient's estimated [...] MD CHEMISTRY ORDERABL ES Performing Organization Address [facility] Co de Phone Number [facility] [place] [address] * POCT Glucose (10/26/2023 7:31 PM EST) Glucose, POC 111 65 - 199 mg/dL [facility] Comment: Supplemental ranges: <140 mg/dL before meals <180 mg/dL all other times of the day Blood 10/26/2023 7:31 PM EST 10/26/2023 7:31 PM EST Selma Brian MD POINT OF CARE TEST ORDERABLES Performing Organization Address [facility] Co de Phone Number [facility] [place] [address] * POCT Glucose (10/26/2023 4:57 PM EST) Glucose, POC 89 65 - 199 mg/dL [facility] Comment: Supplemental ranges: <140 mg/dL before meals <180 mg/dL all other times of the day Blood 10/26/2023 4:57 PM EST 10/26/2023 4:57 PM EST Selma Brian MD POINT OF CARE TEST ORDERABLES Performing Organization Address [facility] Co de Phone Number [facility] [place] [address] * POCT Glucose (10/26/2023 4:04 PM EST) Glucose, POC 77 65 - 199 mg/dL [facility] Comment: Supplemental ranges: <140 mg/dL before meals <180 mg/dL all other times of the day Blood 10/26/2023 4:04 PM EST 10/26/2023 4:04 PM EST Selma Brian MD POINT OF CARE TEST ORDERABLES [facility] [place] [address] * POCT Glucose (10/26/2023 12:10 PM EST) Glucose, POC 77 65 - 199 mg/dL [facility] Comment: Supplemental ranges: <140 mg/dL before meals <180 mg/dL all other times of the day Blood 10/26/2023 12:1 0 PM EST 10/26/2023 12:10 PM EST Selma Brian MD POINT OF CARE TEST ORDERABLES [facility] [place] [address] * POCT Glucose (10/26/2023 7:27 AM EST) Glucose, POC 85 65 - 199 mg/dL [facility] Comment: Supplemental ranges: <140 mg/dL before meals <180 mg/dL all other times of the day Blood 10/26/2023 7:27 AM EST 10/26/2023 7:27 AM EST Dedra Arrington DO POINT OF CA RE TEST ORDERABLES [facility] [place] [address] * POCT Glucose (10/26/2023 4:36 AM EST) Glucose, POC 84 65 - 199 mg/dL [facility] Comment: Supplemental ranges: <140 mg/dL before meals <180 mg/dL all other times of the day Blood 10/26/2023 4:36 AM EST 10/26/2023 4:36 AM EST Dedra Rayna Arrington DO POINT OF CA RE TEST ORDERABLES Performing Organization Address City/State/[facility] Co de Phone Number [facility] [place] [address] * (ABNORMAL) Differential, Automated (10/26/2023 12:59 AM EST) Neutrophil % 88.5 % [facility] Neutrophil Absolute 17.54(H) 1.70 - 6.10 x10(3)/mc L [facility] Lymph % 4.1 % [facility] Lymphocytes Abs 0.8(L) 0.9 - 3.2 x10(3)/mc L [facility] Monocyte % 5.6 % [facility] Monocyte Abs 1.1(H) 0.3 - 0.9 x10(3)/mc L [facility] Eos % 0.2 % [facility] Eosinophils Abs 0.0 0.0 - 0.4 x10(3)/mc L [facility] Basophil % 0.2 % [facility] Baso Absolute 0.0 0.0 - 0.1 x10(3)/mc L [facility] Immature Gran % 1.40 % [facility] Comment: Immature granulocytes(IG's)percentage and absolute count will include metamyelocytes, myelocytes, and promyelocytes. Blood smears from CBCs yielding IG's will be scanned manually for concordance. If this scan disagrees with the automated IG or if promyelocytes are noted, a manual differential will be performed. Immature Gran Absolute 0.28(H) 0.00 - 0.04 x10(3)/mc L [facility] Blood 10/26/2023 12:5 9 AM EST 10/26/2023 1:13 AM EST Narrative Resulting Agency Comment Spec In Lab Amelia Ngo MD HEMATOLOGY ORDERABLE S [facility] [place] [address] * (ABNORMAL) Hemogram (10/26/2023 12:59 AM EST) White Blood Cell 19.8(H) 4.0 - 9.5 x10(3)/mc L [facility] Red Blood Cell 3.39(L) 4.58 - 5.54 x10(6)/mc L [facility] Hemoglobin 10.2(L) 13.7 - 16.5 g/dL [facility] Hematocrit 29.8(L) 40.5 - 48.5 % [facility] Mean Cell Volume 87.9 82.9 - 93.1 fL [facility] Mean Cell Hemoglobin 30.1 27.5 - 32.1 pg [facility] Mean Cell Hemoglobin Concentration 34.2 32.0 - 35.7 g/dL [facility] Platelet 163 145 - 357 x10(3)/mc L [facility] RDW Standard Deviation 46.2(H) 36.0 - 45.0 fL [facility] RDW coefficient of variation 14.3(H) 11.4 - 13.8 % [facility] Mean Platelet Volume 10.8 7.6 - 12.9 fL [facility] NRBC% auto 0.0 % [facility] NRBC Absolute 0.000 0.000 - 0.000 x10(3)/ L [facility] Blood 10/26/2023 12:5 9 AM EST 10/26/2023 1:13 AM EST Narrative Resulting Agency Comment Spec In Lab Amelia Ngo MD HEMATOLOGY ORDERABLE S [facility] [place] [address] * POCT Glucose (10/26/2023 12:59 AM EST) Glucose, POC 105 65 - 199 mg/dL [facility] Comment: Supplemental ranges: <140 mg/dL before meals <180 mg/dL all other times of the day Blood 10/26/2023 12:5 9 AM EST 10/26/2023 12:59 AM EST Dedra Arrington DO POINT OF CA RE TEST ORDERABLES Performing Organization Address [facility] Co de Phone Number [facility] [place] [address] * (ABNORMAL) Phosphorus (10/26/2023 12:59 AM EST) Phosphorus 2.3(L) 2.5 - 4.5 mg/dL [facility] Blood 10/26/2023 12:5 9 AM EST 10/26/2023 1:13 AM EST Narrative Resulting Agency Comment Spec In Lab Yoel Sethi Jr., MD CHEMISTRY ORDERA BLES Performing Organization Address [facility] Co de Phone Number [facility] [place] [address] * Magnesium (10/26/2023 12:59 AM EST) Magnesium 0.97 0.69 - 1.07 mmol/L [facility] Comment:result rechecked-JSJ Blood 10/26/2023 12:5 9 AM EST 10/26/2023 1:13 AM EST Narrative Resulting Agency Comment Spec In Lab Yoel Sethi Jr., MD CHEMISTRY ORDERA BLES Performing Organization Address [facility] Co de Phone Number [facility] [place] [address] * (ABNORMAL) Basic Metabolic Panel (non-fasting) (10/26/2023 12:59 AM EST) Glucose 100 65 - 199 mg/dL [facility] Comment:Diabetes: >=200 mg/d L plus symptoms Blood Urea Nitrogen 23(H) 10 - 20 mg/dL [facility] Creatinine 0.87 0.80 - 1.50 mg/dL [facility] Sodium 139 135 - 145 mmol/L [facility] Potassium 3.9 3.5 - 5.0 mmol/L [facility] Comment: Please note: ??Patients with WBC >100,000 may have falsely elevated Potassium levels. ??For accurate Potassium quantification in these patients send serum separator tube (gold top) for subsequent determinations. ??Contact the Clinical Chemistry Laboratory if there are any questions. Chloride 109(H) 98 - 107 mmol/L [facility] Carbon Dioxide 20(L) 22 - 31 mmol/L [facility] Anion Gap 10 5 - 15 mmol/L [facility] Calcium 8.0(L) 8.5 - 10.5 mg/dL [facility] Est Glomerular Filtration Rate 101 >=60 mL/min/1. 73 m?? [facility] Comment: This patient's estimated GFR [...] MD CHEMISTRY ORDERABL ES Performing Organization Address City/[facility]/ZIP Co de Phone Number [facility] [place] [address] * POCT Glucose (10/25/2023 8:57 PM EST) Glucose, POC 85 65 - 199 mg/dL [facility] Comment: Supplemental ranges: <140 mg/dL before meals <180 mg/dL all other times of the day Blood 10/25/2023 8:57 PM EST 10/25/2023 8:57 PM EST Dedra Arrington DO POINT OF CA RE TEST ORDERABLES [facility] [place] [address] * POCT Glucose (10/25/2023 3:26 PM EST) Glucose, POC 97 65 - 199 mg/dL [facility] Comment: Supplemental ranges: <140 mg/dL before meals <180 mg/dL all other times of the day Blood 10/25/2023 3:26 PM EST 10/25/2023 3:26 PM EST Dedra Arrington DO POINT OF CA RE TEST ORDERABLES Performing Organization Address [facility] Co de Phone Number [facility] [place] [address] * EKG 12 Lead (10/25/2023 11:39 AM EST) Ventricular rate 78 BPM MUSE SYSTEM Atrial Rate 78 BPM MUSE SYSTEM P-R Interval 132 ms MUSE SYSTEM QRS Duration 110 ms MUSE SYSTEM Q-T Interval 392 ms MUSE SYSTEM QTC Calculated (Bezet) 446 ms MUSE SYSTEM Calculated P Carpenter 66 degrees MUSE SYSTEM Calculated R Carpenter 3 degrees MUSE SYSTEM Calculated T Carpenter 65 degrees MUSE SYSTEM INTERPRETATION Normal sinus rhythm Incomplete right bundle branch block Nonspecific T wave abnormality Abnormal ECG No previous ECGs available Confirmed by MD Gio, Maritza ([id number]) on 10/26/2023 7:18:06 PM MUSE SYSTEM 10/25/2023 11:3 9 AM EST 10/26/2023 7:18 PM EST Yoel Sethi Jr., MD ECG ORDERABLES Performing Organization Address City/[facility] Co de Phone Number MUSE SYSTEM * POCT Glucose (10/25/2023 11:06 AM EST) Glucose, POC 96 65 - 199 mg/dL [facility] Comment: Supplemental ranges: <140 mg/dL before meals <180 mg/dL all other times of the day Blood 10/25/2023 11:0 6 AM EST 10/25/2023 11:06 AM EST Dedra Arrington DO POINT OF CA RE TEST ORDERABLES Performing Organization Address City/State/[facility] Co de Phone Number [facility] [place] [address] * Phosphorus (10/25/2023 10:50 AM EST) Pathologist [facility] Phosphorus 2.8 2.5 - 4.5 mg/dL [facility] Blood Venous Draw / Unknown 10/25/2023 10:50 AM EST 10/25/2023 11:07 AM EST Narrative Resulting Agency Comment Spec In Lab Amelia Ngo MD CHEMISTRY ORDERABLES Performing Organization Address [facility] de Phone Number [facility] [place] [address] * (ABNORMAL) Magnesium (10/25/2023 10:50 AM EST) [facility] Magnesium 0.57(L) 0.69 - 1.07 mmol/L [facility] Blood Venous Draw / Unknown 10/25/2023 10:50 AM EST 10/25/2023 11:07 AM EST Narrative Resulting Agency Comment Spec In Lab Amelia Ngo MD CHEMISTRY ORDERABLES Performing Organization Address [facility] de Phone Number [facility] [place] [address] * (ABNORMAL) Differential, Automated (10/25/2023 10:50 AM EST) [facility] Neutrophil % 83.2 % [facility] Neutrophil Absolute 30.11(H) 1.70 - 6.10 x10(3)/mc L [facility] Lymph % 5.5 % [facility] Lymphocytes Abs 2.0 0.9 - 3.2 x10(3)/mc L [facility] Monocyte % 6.5 % [facility] Monocyte Abs 2.3(H) 0.3 - 0.9 x10(3)/mc L [facility] Eos % 0.0 % [facility] Eosinophils Abs 0.0 0.0 - 0.4 x10(3)/mc L [facility] Basophil % 0.4 % [facility] Baso Absolute 0.1 0.0 - 0.1 x10(3)/mc L [facility] Immature Gran % 4.40 % [facility] Comment: Immature granulocytes(IG's)percentage and absolute count will include metamyelocytes, myelocytes, and promyelocytes. Blood smears from CBCs yielding IG's will be scanned manually for concordance. If this scan disagrees with the automated IG or if promyelocytes are noted, a manual differential will be performed. Immature Gran Absolute 1.58(H) 0.00 - 0.04 x10(3)/mc L [facility] Blood 10/25/2023 10:5 0 AM EST 10/25/2023 11:07 AM EST Narrative Resulting Agency Comment Spec In Lab Amelia Ngo MD HEMATOLOGY ORDERABLE S [facility] [place] [address] * (ABNORMAL) Hemogram (10/25/2023 10:50 AM EST) White Blood Cell 36.2(Crit ical) 4.0 - 9.5 x10(3)/mc L [facility] Comment: This result has been called to DEE MCLEAN by Alberta Shankar on 10 25 2023 at 1136, and has been read back. Red Blood Cell 2.91(L) 4.58 - 5.54 x10(6)/mc L [facility] Hemoglobin 8.8(L) 13.7 - 16.5 g/dL [facility] Comment: This result has been called to DEE MCLEAN by Alberta Shankar on 10 25 2023 at 1136, and has been read back. Hematocrit 25.6(L) 40.5 - 48.5 % [facility] Mean Cell Volume 88.0 82.9 - 93.1 fL [facility] Mean Cell Hemoglobin 30.2 27.5 - 32.1 pg [facility] Mean Cell Hemoglobin Concentration 34.4 32.0 - 35.7 g/dL [facility] Platelet 227 145 - 357 x10(3)/mc L [facility] RDW Standard Deviation 45.5(H) 36.0 - 45.0 fL [facility] RDW coefficient of variation 14.1(H) 11.4 - 13.8 % [facility] Mean Platelet Volume 11.1 7.6 - 12.9 fL [facility] NRBC% auto 0.0 % [facility] NRBC Absolute 0.000 0.000 - 0.000 x10(3)/mc L [facility] Blood 10/25/2023 10:5 0 AM EST 10/25/2023 11:07 AM EST Narrative Resulting Agency Comment Spec In Lab Amelia Ngo MD HEMATOLOGY ORDERABLE S [facility] [place] [address] * (ABNORMAL) Comprehensive metabolic panel (non-fasting) (10/25/2023 10:50 AM EST) Glucose 91 65 - 199 mg/dL [facility] Comment:Diabetes: >=200 mg/d L plus symptoms Blood Urea Nitrogen 26(H) 10 - 20 mg/dL [facility] Creatinine 1.04 0.80 - 1.50 mg/dL [facility] Sodium 139 135 - 145 mmol/L [facility] Potassium 3.7 3.5 - 5.0 mmol/L [facility] Comment: Please note: ??Patients with WBC >100,000 may have falsely elevated Potassium levels. ??For accurate Potassium quantification in these patients send serum separator tube (gold top) for subsequent determinations. ??Contact the Clinical Chemistry Laboratory if there are any questions. Chloride 106 98 - 107 mmol/L [facility] Carbon Dioxide 21(L) 22 - 31 mmol/L [facility] Anion Gap 12 5 - 15 mmol/L [facility] Calcium 8.1(L) 8.5 - 10.5 mg/dL [facility] Protein, Total 5.4(L) 6.1 - 8.0 g/dL [facility] Albumin 3.2 3.2 - 5.2 g/dL [facility] Aspartate Aminotransferase 40(H) 0 - 39 unit/L [facility] LABORATORY Alanine Aminotransferase 27 0 - 55 unit/L [facility] Alkaline Phosphatase 54 40 - 130 unit/L [facility] Bilirubin, Total 0.3 0.2 - 1.3 mg/dL [facility] Est Glomerular Filtration Rate 84 >=60 mL/min/1. 73 m?? [facility] Comment: This patient's estimated GFR [...] MD CHEMISTRY ORDERA BLES Performing Organization Address City/[facility]/ZIP Co de Phone Number [facility] [place] [address] * Lactate, whole blood, send to lab ([facility]) (10/25/2023 10:50 AM EST) Lactate WB 1.6 0.5 - 2.2 mmol/L [facility] Blood 10/25/2023 10:5 0 AM EST 10/25/2023 11:06 AM EST Narrative Resulting Agency Comment Spec In Lab Yoel Sethi Jr., MD CHEMISTRY ORDERA BLERad [facility] [place] [address] * Blood culture (10/25/2023 10:50 AM EST) Blood Culture No growth at 5 days. [facility] Blood 10/25/2023 10:5 0 AM EST 10/25/2023 11:40 AM EST Comment:R wrist Narrative Resulting Agency Comment Spec In Lab Yoel Sethi Jr., MD MICROBIOLOGY - B LOOD ORDERABLES Performing Organization Address [facility] Co de Phone Number [facility] [place] [address] * Blood culture (10/25/2023 10:40 AM EST) Blood Culture No growth at 5 days. [facility] Blood 10/25/2023 10:4 0 AM EST 10/25/2023 11:40 AM EST Comment:RH Narrative Resulting Agency Comment Spec In Lab Yoel Sethi Jr., MD MICROBIOLOGY - B LOOD ORDERABLES Performing Organization Address [facility] de Phone Number [facility] [place] [address] * POCT Glucose (10/25/2023 9:55 AM EST) Glucose, POC 100 65 - 199 mg/dL [facility] Comment: Supplemental ranges: <140 mg/dL before meals <180 mg/dL all other times of the day Blood 10/25/2023 9:55 AM EST 10/25/2023 9:55 AM EST Yoel Sethi Jr., MD POINT OF CARE TE ST ORDERABLES Performing Organization Address [facility] Co de Phone Number [facility] [place] [address] * XR Fluoro No Rad <1Hr - OR Use (10/25/2023 9:38 AM EST) Narrative Dicom, Auditing User - 10/25/2023 9:38 AM EST This exam is auto-finalizing. No interpretation was done. Selma Brian MD IMG FLUORO ORDERAB LES * (ABNORMAL) Urine culture Cystoscopic Urine (10/25/2023 9:13 AM EST) Urine Culture Greater than 50,000 cfu/mL Pseudomonas aeruginosa Greater than 50,000 cfu/mL Enterococcus faecalis (A) [facility] Organism Pseudomonas aeruginosa(A) [facility] Organism Enterococcus faecalis(A) [facility] Cystoscopic Urine 10/25/2023 9:13 AM [...] Brian MD MICROBIOLOGY - GEN ERAL ORDERABLES [facility] [place] [address] * Type and screen ([facility]/LAURIE) (10/25/2023 8:43 AM EST) ABORH Type AB POSITIVE [facility] Patient BB History Not Found [facility] Expires at [id number] on: 10-28-2023 [facility] Ab Screen Interp Negative [facility] Blood 10/25/2023 8:43 AM EST 10/25/2023 8:43 AM EST Narrative [facility] - 10/25/2023 8:43 AM EST This Type and Screen result is only valid at the [facility] Resulting Agency Comment Spec In Lab Cheyanne Lemon MD BLOOD BANK LAB ORDAnu DIXON [facility] [place] [address] * Hemoglobin A1c (10/25/2023 7:58 AM EST) Hemoglobin A1c 4.8 4.3 - 5.6 % [facility] Comment: Reference Range: 4.3 - [...] Mellitus, Diabetes Care 2013; 36: Suppl. 1, C45-02 Estimated Average Glucose 92 mg/dL [facility] Comment: Note: The eAG calculation has not been proven valid for women, individuals below 18 years old or above 70 years old, or individuals with hemoglobinopathies. Estimated average glucose (eAG) is calculated from the equation described in: Sal DM, Jorge J, Eddie R, et al. ??Translating the A1C assay into estimated average glucose values. ??Diabetes Care 2008:31(8):1718-0930. Additional resources are available on the ADA website (diabetes.org). Blood Venous Draw / Unknown 10/25/2023 7:58 AM EST 10/25/2023 10:54 AM EST Narrative Resulting Agency Comment Spec In Lab Nallely E Caille ECCLESIASTICAL WORKER CHEMISTRY ORDERA BLES Performing Organization Address City/[facility] Co de Phone Number [facility] [place] [address] * Phosphorus (10/25/2023 7:58 AM EST) Phosphorus 3.0 2.5 - 4.5 mg/dL [facility] Blood Venous Draw / Unknown 10/25/2023 7:58 AM EST 10/25/2023 8:13 AM EST Narrative Resulting Agency Comment Spec In Lab Nallely E Caille ECCLESIASTICAL WORKER CHEMISTRY ORDERA BLES Performing Organization Address [facility] Co de Phone Number [facility] [place] [address] * (ABNORMAL) Magnesium (10/25/2023 7:58 AM EST) [facility] Magnesium 0.55(L) 0.69 - 1.07 mmol/L [facility] Blood Venous Draw / Unknown 10/25/2023 7:58 AM EST 10/25/2023 8:13 AM EST Narrative Resulting Agency Comment Spec In Lab Nallely Coles APRN CHEMISTRY ORDERA BLES Performing Organization Address City/[facility] Co de Phone Number [facility] [place] [address] * Scan, Peripheral Blood (10/25/2023 7:58 AM EST) [facility] Plat estimate Normal [facility] RBC Morphology Abnormal [facility] Ovalocytes 1-5 /HPF [facility] IT[facility] LABORATORY Dean Cells 1-5 /HPF [facility] Vacuolated Neut Present [facility] Blood 10/25/2023 7:58 AM EST 10/25/2023 8:11 AM EST Narrative Resulting Agency Comment Spec In Lab Cheyanne Lemon MD HEMATOLOGY ORDERABL ES Performing Organization Address [facility] Co de Phone Number [facility] [place] [address] * (ABNORMAL) Differential, Automated (10/25/2023 7:58 AM EST) [facility] Neutrophil % 83.8 % [facility] Neutrophil Absolute 23.81(H) 1.70 - 6.10 x10(3)/mc L [facility] Lymph % 3.8 % [facility] Lymphocytes Abs 1.1 0.9 - 3.2 x10(3)/mc L [facility] Monocyte % 6.7 % [facility] Monocyte Abs 1.9(H) 0.3 - 0.9 x10(3)/mc L [facility] Eos % 0.1 % [facility] Eosinophils Abs 0.0 0.0 - 0.4 x10(3)/mc L [facility] Basophil % 0.2 % [facility] Baso Absolute 0.1 0.0 - 0.1 x10(3)/mc L [facility] Immature Gran % 5.40 % [facility] Comment: Immature granulocytes(IG's)percentage and absolute count will include metamyelocytes, myelocytes, and promyelocytes. Blood smears from CBCs yielding IG's will be scanned manually for concordance. If this scan disagrees with the automated IG or if promyelocytes are noted, a manual differential will be performed. Immature Gran Absolute 1.54(H) 0.00 - 0.04 x10(3)/mc L [facility] Blood 10/25/2023 7:58 AM EST 10/25/2023 8:11 AM EST Narrative Resulting Agency Comment Spec In Lab Cheyanne Lemon MD HEMATOLOGY ORDERABL ES Performing Organization Address City/State/[facility] Co de Phone Number [facility] [place] [address] * (ABNORMAL) Hemogram (10/25/2023 7:58 AM EST) White Blood Cell 28.4(H) 4.0 - 9.5 x10(3)/mc L [facility] Red Blood Cell 3.76(L) 4.58 - 5.54 x10(6)/ L [facility] Hemoglobin 11.2(L) 13.7 - 16.5 g/dL [facility] Hematocrit 32.9(L) 40.5 - 48.5 % [facility] Mean Cell Volume 87.5 82.9 - 93.1 fL [facility] Mean Cell Hemoglobin 29.8 27.5 - 32.1 pg [facility] Mean Cell Hemoglobin Concentration 34.0 32.0 - 35.7 g/dL [facility] Platelet 168 145 - 357 x10(3)/mc L [facility] RDW Standard Deviation 44.8 36.0 - 45.0 fL [facility] RDW coefficient of variation 14.0(H) 11.4 - 13.8 % [facility] Mean Platelet Volume 11.3 7.6 - 12.9 fL [facility] NRBC% auto 0.0 % [facility] NRBC Absolute 0.000 0.000 - 0.000 x10(3)/mc L [facility] Blood 10/25/2023 7:58 AM EST 10/25/2023 8:11 AM EST Narrative Resulting Agency Comment Spec In Lab Cheyanne Lemon MD HEMATOLOGY ORDERABL ES [facility] [place] [address] * (ABNORMAL) Basic Metabolic Panel (non-fasting) (10/25/2023 7:58 AM EST) Glucose 101 65 - 199 mg/dL [facility] Comment:Diabetes: >=200 mg/d L plus symptoms Blood Urea Nitrogen 26(H) 10 - 20 mg/dL [facility] Creatinine 1.11 0.80 - 1.50 mg/dL [facility] Sodium 136 135 - 145 mmol/L [facility] Potassium 4.0 3.5 - 5.0 mmol/L [facility] Comment: Please note: ??Patients with WBC >100,000 may have falsely elevated Potassium levels. ??For accurate Potassium quantification in these patients send serum separator tube (gold top) for subsequent determinations. ??Contact the Clinical Chemistry Laboratory if there are any questions. Chloride 105 98 - 107 mmol/L [facility] Carbon Dioxide 14(L) 22 - 31 mmol/L [facility] Anion Gap 17(H) 5 - 15 mmol/L [facility] Calcium 8.5 8.5 - 10.5 mg/dL [facility] Est Glomerular Filtration Rate 78 >=60 mL/min/1. 73 m?? [facility] Comment: This patient's estimated GFR [...] Lab Cheyanne Lemon MD CHEMISTRY ORDERABLE S [facility] [address] [place] [address] documented in this encounter Visit Diagnoses Not [...] 40 mg, Oral, DAILY, First dose on [facility] 10/29/23 at 0900, Until Discontinued, DO NOT CRUSH OR OPEN, Routine Given 11/09/2023 9:35 AM EST 40 mg Given 11/08/2023 12:18 PM EST 40 mg Given 11/07/2023 9:15 AM EST 40 mg pregabalin (Lyrica) capsule 25 mg 25 mg, Oral, 3 TIMES DAILY, First dose on [place] 10/25/23 at 1130, Until Discontinued, Routine Given 11/09/2023 2:3 5 PM EST 25 mg Given 11/09/2023 9:35 AM EST 25 mg Given 11/08/2023 9:06 PM EST 25 mg senna (Senokot) tablet 34.4 mg 34.4 mg, Oral, NIGHTLY, First dose on [place] 10/25/23 at 2100, Until Discontinued, Routine Given [...] - Reason: Patient/family refused)1625 (Given - Provider: aMrgarita Loomis RN)2106 (Given - Provider: Lauri Camarillo [...] OR CHEW, Routine 0916 (Given - Provider: Margartia Loomis, RN) 1218 (Given - Provider: Margarita Loomis, RN) 0935 (Given - Provider: Margarita Loomis, SWETHA) traZODone (Desyrel) tablet 50 mg 50 mg, Oral, NIGHTLY, First dose on 10/25/23 at 2100, Until Discontinued, Routine 2100 (Given - Provider: All Quintero RN) 210 (Given - Provider: Lauri Cmaarillo, SWETHA) PRN Medication Order 11/07/2023 11/08/2023 11/09/2023 [...] Routine documented in this encounter Care Teams Medical Clinic Manager Relationship Specialty Start Date End Date Genevieve Baez MD [address] [place] [id number] PCP - General Family Medicine 07/22/23 documented as of this encounter
--- OUTSIDE RECORDS SUMMARY | 2024-11-04 00:26 | XMS_ITS | Encounter Summary ---
[place] [address] Care Team Providers Care Tail Board Man Name Role Phone Lauri [place] MD Primary Care Provider [phone] Encounter Details Date Type Department Care Team (Late st Contact Info) Description 07/01/2022 Tele[place] [address] Amelia Rm LPN Social History [...] the ostomy that was done at [facility]. On Thursday patient did not have any output in the ostomy bag. Patient had a similar episode last week and had admission to [facility] on 06/26 until Wednesday 06/27. With testing [...] on filedocumented in this encounter Care Teams Tail Board Man Relationship Specialty Start Date End Date Lauri [place] MD PCP - General Family Medicine 02/19/22 07/21/23 documented as of this encounter
--- OUTSIDE RECORDS SUMMARY | 2024-11-04 00:26 | XMS_ITS | Encounter Summary ---
[place] [address] Care Team Providers Care Bid Clerk Name Role Phone Genevieve Baez MD Primary Care Provider [phone] Encounter Details Date Type Department Care Team (Late st Contact Info) Description 10/24/2023 Interpretation Only [facility] [address] [place] [address] Shoaib Barr MD [address] [place] [address] Social History Tobacco Use Types [...] EST) PT CLASS E DH RAD ADMITDTTM [id number] RAD PT RAD INFO [id number]^Cortney^ Shoaib RAD EXAM DESC CTAPW^CT Abdomen and [...] who have questions please contact the health cna caregiver that requested your imaging first. ? [...] patients who have questions please contactthe health cna caregiver that requested your imaging first. Shoaib Barr MD IMG CT ORDERABLES documented in this encounter Visit Diagnoses Not on filedocumented in this encounter Care Teams Bid Clerk Relationship Specialty Start Date End Date Genevieve Baez MD [address] [place] [address] PCP - General Family Medicine 07/22/23 documented as of this encounter
--- OUTSIDE RECORDS SUMMARY | 2024-11-04 00:26 | XMS_ITS | Encounter Summary ---
[place] [address] Care Team Providers Care Wood Fence Erector Name Role Phone Genevieve Baez MD Primary Care Provider [phone] Encounter Details Date Type Department Care Team (Late st Contact Info) Description 10/24/2023 Interpretation Only [facility] [address] [place] [address] Shoaib Barr MD [address] [place] [address] Social History Tobacco Use Types [...] EST) PT CLASS E DH RAD ADMITDTTM [id number] RAD PT RAD INFO [id number]^Cortney^ Shoaib RAD EXAM DESC CTUPXWL^CT Upper Extremity [...] who have questions please contact the health manager care that requested your imaging first. ? Narrative 10/24/2023 9:40 PM EST EXAMINATION: CT [...] patients who have questions please contactthe health manager care that requested your imaging first. Shoaib Barr MD IMG CT ORDERABLES documented in this encounter Visit Diagnoses Not on filedocumented in this encounter Care Teams Wood Fence Erector Relationship Specialty Start Date End Date Genevieve Baez MD [address] [place] [address] PCP - General Family Medicine 07/22/23 documented as of this encounter
--- OUTSIDE RECORDS SUMMARY | 2024-11-04 00:26 | XMS_ITS | Encounter Summary ---
[place] [address] Care Team Providers Care Administrative Medical Director Name Role Phone Genevieve Baez MD Primary Care Provider [phone] Encounter Details Date Type Department Care Team (Late st Contact Info) Description 08/10/2023 Telephone [place] [address] Unknown None Social History Tobacco [...] of caller (if different from provider): [facility] Name of Provider: Genevieve Baez MD Name of Facility they ar calling from: [facility] Reason for call: Laura called in, stated that the patient had contacted them and informed them thathe has not been able to schedule an appointment as of yet. Laura stated that the patient is currently having trouble with his electric wheelchair, and was hoping for a telehealth appointment. Call Back Number: [phone] Ext. [phone] Best time to call: any Route Per Clinic Coverage Page documented in this encounter Plan of Treatment Not on file documented as of this encounter Visit Diagnoses Not on filedocumented in this encounter Care Teams Administrative Medical Director Relationship Specialty Start Date End Date Genevieve Baez MD [address] [place] [address] PCP - General Family Medicine 07/22/23 documented as of this encounter
--- OUTSIDE RECORDS SUMMARY | 2024-11-04 00:26 | XMS_ITS | Encounter Summary ---
[place] [address] Care Team Providers Care General Contractor Name Role Phone Genevieve Baez MD Primary Care Provider [phone] Encounter Details Date Type Department Care Team (Late st Contact Info) Description 10/24/2023 Interpretation Only [facility] [address] [place] [address] Shoaib Barr MD [address] [place] [address] Social History Tobacco Use Types [...] EST) PT CLASS E DH RAD ADMITDTTM [id number] DH RAD PT RAD INFO [id number]^Cortney^ Shoaib RAD EXAM DESC CTCHW^CT Chest w/ [...] who have questions please contact the health medical care administrator that requested your imaging first. ? Narrative [...] patients who have questions please contactthe health medical care administrator that requested your imaging first. Shoaib Barr MD IMG CT ORDERABLES documented in this encounter Visit Diagnoses Not on filedocumented in this encounter Care Teams General Contractor Relationship Specialty Start Date End Date Genevieve Baez MD [address] [place] [address] PCP - General Family Medicine 07/22/23 documented as of this encounter
--- OUTSIDE RECORDS SUMMARY | 2024-11-04 00:26 | XMS_ITS | Encounter Summary ---
[place] [address] Care Team Providers Care Mechanical Laboratory Technician Name Role Phone Lauri [place] MD Primary Care Provider [phone] Reason for Visit * Reason Comments Establish Care Attention to colosto my. Encounter Details Date Type Department Care Team (Late st Contact Info) Description 07/01/2022 2:00 PM EDT Office [place] [address] S/P colostomy Social History Tobacco Use Types [...] Boone RN - 07/01/2022 2:00 PM EDT saw maker note - Ostomy team was asked to see this pt during his Wound Care appointment today to assist with ostomy care/questions. Pt is s/p end colostomy in January of 2021 at [facility] 2/2 to chronic constipation r/t quadriplegia stemming [...] status documented in this encounter Care Teams Mechanical Laboratory Technician Relationship Specialty Start Date End Date Lauri [place] MD PCP - General Family Medicine 02/19/22 07/21/23 documented as of this encounter
--- OUTSIDE RECORDS SUMMARY | 2024-11-04 00:27 | XMS_ITS | Encounter Summary ---
Author Organization [facility] Address [facility] [place] [address] Care Team Providers Care Concrete Form Setter Name Role Phone Rayna Pino APRN Primary Care Provider Reason for Visit * - Closed Specialty Diagnoses / Procedures Referred By Contmadan t Referred To Contact Procedures Film Library- Storage Only DX Abdomen Rayna Pino APRN [address] [place] [address] Referral ID Status Reason Start Date Expiration Date Visits Re quested Visits Authorized [id number] Closed 04/05/2021 04/05/2022 1 1 Encounter Details Date Type Department Care Team (Late st Contact Info) Description 04/03/2021 Ancillary Procedure Radiology Library at [facility] [place] [address] Rayna Pino APRN [address] [place] [address] Social History Tobacco Use Types Packs/Day [...] DX Abdomen (04/03/2021 12:00 AM EDT) Narrative DEENA - 04/05/2021 9:52 AM EDT This exam is auto-finalizing. It's purpose is for storage only. Rayna Pino APRN [facility] FILM LIBRARY ORD ERABLES Performing Organization Address City/State/[facility] Co de Phone Number [place], [place] documented in this encounter Visit Diagnoses Not on filedocumented in this encounter Care Teams Concrete Form Setter Relationship Specialty Start Date End Date Rayna Pino [place] [address] PCP - General Family Medicine 07/01/18 08/21/21 documented as of this encounter
--- OUTSIDE RECORDS SUMMARY | 2024-11-04 00:27 | XMS_ITS | Encounter Summary ---
Author Organization [facility] [place] [address] Care Team Providers Care Rack Room Worker Name Role Phone Rayna Pino APRN Primary Care Provider Reason for Visit * - Closed Specialty Diagnoses / Procedures Referred By Ness palacio Referred To Contact Procedures Film Library- Storage Only Ultrasound Study Rayna Pino APRN [address] [place] [address] Referral ID Status Reason Start Date Expiration Date Visits Re quested Visits Authorized [id number] Closed 04/05/2021 04/05/2022 1 1 Encounter Details Date Type Department Care Team (Late st Contact Info) Description 04/03/2021 12:05 AM EDT Ancillary Procedure Radiology Library at [facility] [place] [address] Rayna Pino APRN [address] [place] [address] Social History Tobacco Use Types Packs/Day [...] Pino APRN [place] FILM LIBRARY ORD ERABLES [place], [place] documented in this encounter Visit Diagnoses Not on filedocumented in this encounter Care Teams Rack Room Worker Relationship Specialty Start Date End Date Ray[place] [address] PCP - General Family Medicine 07/01/18 08/21/21 documented as of this encounter
--- OUTSIDE RECORDS SUMMARY | 2024-11-04 00:27 | XMS_ITS | Encounter Summary ---
Author Organization [facility] [place] [address] Care Team Providers Care Strategic Account Executive Name Role Phone Rayna Pino APRN Primary Care Provider [phone] Encounter Details Date Type Department Care Team (Late st Contact Info) Description 04/03/2021 Telephone [place] [phone] Iain Stewart MD [facility] [place] [address] Social History Tobacco Use Types Packs/Day Years [...] received a call from Dr Pedersen at [facility]. Briefly, this is a 55 [...] Stewart M.D. Fellow in Gastroenterology and Hepatology [facility] Pager #[phone] 04/03/2021 documented in this encounter Plan of Treatment Not on file documented as of this encounter Visit Diagnoses Not on filedocumented in this encounter Care Teams Strategic Account Executive Relationship Specialty Start Date End Date Rayna [place] [address] PCP - General Family Medicine 07/01/18 08/21/21 documented as of this encounter
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
--- OUTSIDE RECORDS SUMMARY | 2024-11-04 00:27 | XMS_ITS | Encounter Summary ---
[place] [address] Care Team Providers Care Instrument Adjuster Name Role Phone Lauri Dallas MD Primary [...] injury stage, unspecified laterality Lauri Dallas MD [address] [place] [address] [place] [address] [facility] Infectious Dis [address] [place] [phone] Referral ID Status Reason Start Date Expiration Date V isits Requested Visits Authorized [id number] Closed Consult, Test & Treat PCP Updated and/or Approved 03/14/2022 03/14/2023 6 6 Encounter Details Date Type Department Care Team (Late st Contact Info) Description 03/14/2022 Transcribe Orders eDH Incoming Referrals [phone] Lauri Dallas MD [facility] [facility] [place] [address] Osteomyelitis, unspecified site, unspecified type; Pressure injury [...] laterality documented in this encounter Care Teams Instrument Adjuster Relationship Specialty Start Date End Date Lauri Dallas MD PCP - General Family Medicine 02/19/22 07/21/23 documented as of this encounter
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
--- OUTSIDE RECORDS SUMMARY | 2024-11-04 00:27 | XMS_ITS | Encounter Summary ---
Author Organization [facility] [place] [address] Care Team Providers Care Hotel Manager Name Role Phone Rayna Pino APRN Primary Care Provider [phone] Encounter Details Date Type Department Care Team (Late st Contact Info) Description 12/25/2020 Ancillary Procedure Radiology Library at [facility] [place] [phone] Rayna Pino APRN [address] [place] [address] [place] [address] Social History Tobacco Use Types Packs/Day Years [...] is for storage only. Rayna Pino APRN IM FILM LIBRARY ORD ERABLES DEENA [place], [place] documented in this encounter Visit Diagnoses Not on filedocumented in this encounter Care Teams Hotel Manager Relationship Specialty Start Date End Date Rayna [place] [place] [address] PCP - General Family Medicine 07/01/18 08/21/21 documented as of this encounter
--- OUTSIDE RECORDS SUMMARY | 2024-11-04 00:27 | XMS_ITS | Encounter Summary ---
[place] [address] Care Team Providers Care Scrap Bunch Maker Name Role Phone Iain Olson MD Primary Care Provid er Encounter Details Date Type Department Care Team (Late st Contact Info) Description 09/04/2021 Telephone [place] [phone] Mely Rocha Social History Tobacco Use Types [...] on filedocumented in this encounter Care Teams Scrap Bunch Maker Relationship Specialty Start Date End Date Iain Olson MD [address] [facility] [place] [address] PCP - General [facility] Medicine 09/04/21 02/18/22 documented as of this encounter
--- OUTSIDE RECORDS SUMMARY | 2024-11-04 00:27 | XMS_ITS | Encounter Summary ---
Author Organization [facility] Address [facility] [place] [address] Care Team Providers Care Supervisor Graphite Name Role Phone Rayna Pino APRN Primary Care Provider [phone] Reason for Visit * - Closed Specialty Diagnoses / Procedures Referred By Contmadan t Referred To Contact Procedures Film Library- Storage Only DX Abdomen Rayna Pino APRN [address] [place] [address] Referral ID Status Reason Start Date Expiration Date Visits Re quested Visits Authorized [id number] Closed 04/05/2021 04/05/2022 1 1 Encounter Details Date Type Department Care Team (Late st Contact Info) Description 04/02/2021 Ancillary Procedure Radiology Library at [facility] [place] [address] Rayna Pino APRN [address] [place] [address] Social History Tobacco Use Types Packs/Day [...] DX Abdomen (04/02/2021 12:00 AM EDT) Narrative DEENA - 04/05/2021 9:51 AM EDT This exam is auto-finalizing. It's purpose is for storage only. Rayna Pino APRN [facility] FILM LIBRARY ORD ERABLES Performing Organization Address City/State/[facility] Co de Phone Number [place], [place] documented in this encounter Visit Diagnoses Not on filedocumented in this encounter Care Teams Supervisor Graphite Relationship Specialty Start Date End Date Rayna [place] [address] [place] [address] PCP - General Family Medicine 07/01/18 08/21/21 documented as of this encounter
--- OUTSIDE RECORDS SUMMARY | 2024-11-04 00:27 | XMS_ITS | Encounter Summary ---
[place] [address] Care Team Providers Care Molded Parts Inspector Name Role Phone Lauri Dallas MD Primary Care Provider [phone] Encounter Details Date Type Department Care Team (Late st Contact Info) Description 04/21/2022 Tele[place] [address] Amelia Rm LPN Social History [...] - 04/21/2022 11:41 AM EDT Trish from [facility] called. Sacral wound is draining more [...] ?? Phone call placed to Radha at [facility]. Left voicemail on provider line Amelia Rm LPN documented in this encounter Plan of Treatment Not on file documented as of this encounter Visit Diagnoses Not on filedocumented in this encounter Care Teams Molded Parts Inspector Relationship Specialty Start Date End Date Lauri Dallas MD PCP - General Family Medicine 02/19/22 07/21/23 documented as of this encounter
--- OUTSIDE RECORDS SUMMARY | 2024-11-04 00:27 | XMS_ITS | Encounter Summary ---
Author Organization [facility] [place] [place] [address] Care Team Providers Care Marketing Support Assistant Name Role Phone Rayna Pino APRN Primary Care Provider Reason for Visit * - Closed Specialty Diagnoses / Procedures Referred By Ness palacio Referred To Contact Procedures Film Library- Storage Only CT Abdomen & Pelvis Rayna Pino APRN [address] [place] [address] Referral ID Status Reason Start Date Expiration Date Visits Re quested Visits Authorized [id number] Closed 04/05/2021 04/05/2022 1 1 Encounter Details Date Type Department Care Team (Late st Contact Info) Description 03/30/2021 Ancillary Procedure Radiology Library [place] [facility] [address] Rayna Pino APRN [address] [place] [address] Social History Tobacco Use Types Packs/Day [...] Pino APRN [place] FILM LIBRARY ORD ERABLES [place], [place] documented in this encounter Visit Diagnoses Not on filedocumented in this encounter Care Teams Marketing Support Assistant Relationship Specialty Start Date End Date Rayna [place] [address] PCP - General Family Medicine 07/01/18 08/21/21 documented as of this encounter
--- OUTSIDE RECORDS SUMMARY | 2024-11-04 00:27 | XMS_ITS | Encounter Summary ---
Author Organization [facility] Address [facility] [place] [address] Care Team Providers Care Physical Therapy Coordinator Name Role Phone Rayna Pino APRN Primary Care Provider [phone] Encounter Details Date Type Department Care Team (Latest Contact Info) Description 01/30/2021 9:26 AM EDT - 01/30/2021 11:59 PM EDT Hospital Encounter XRay at [address] [place] [address] Robbin Tong MD [facility] [place] [address] S/P C4-T2 PSIF for C6-7 bilateral facet [...] your doctor prior to speaking to [facility]. oRbbin Tong MD IMG DX ORDERABLES documented in this encounter Visit Diagnoses Diagnosis S/P C4-T2 PSIF for C6-7 bilateral facet dislocation 10/27/20 Dr. Tong Arthrodesis status documented in this encounter Care Teams Physical Therapy Coordinator Relationship Specialty Start Date End Date Rayna [place] [address] PCP - General Family Medicine 07/01/18 08/21/21 documented as of this encounter
--- OUTSIDE RECORDS SUMMARY | 2024-11-04 00:27 | XMS_ITS | Encounter Summary ---
[place] [address] Care Team Providers Care Podiatric Physician Name Role Phone Rayna Pino APRN Primary Care Provider [phone] Reason for Visit * Reason Onset Date Comments Other 11/26/2020 Encounter Details Date Type Department Care Team (Late st Contact Info) Description 11/26/2020 Telephone [place] [phone] Naresh Berg RN Other Social History Tobacco [...] Luz, reporting that her father is at [facility] and is expected to be there through December, he will not be able to make the 12/19/2020 f/u with xray prior scheduled with Dr. Tong. Dr. Sascha Isbell is his doctor at [place]. Reviewed above with Dr. Tong, contacted Dr. Isbell at [phone], discussed obtaining cervical spine xray, AP, lateral, swimmers view to include down to T2 around 12/19/2020 there and forwarding images up for Dr. Tong to review and then can plan further f/u once patient is discharged from [place]. Dr. Isbell will obtain xrays and reach out to nursing off once done to forward them for review. Patient daughter was contacted and a message was left informing her of the above. documented in this encounter Plan of Treatment Not on file documented as of this encounter Visit Diagnoses Not on filedocumented in this encounter Care Teams Podiatric Physician Relationship Specialty Start Date End Date Rayna Pino [place] [place] [address] PCP - General Family Medicine 07/01/18 08/21/21 documented as of this encounter
--- OUTSIDE RECORDS SUMMARY | 2024-11-04 00:27 | XMS_ITS | Encounter Summary ---
[place] [address] Care Team Providers Care Web Application Tester Name Role Phone Iain Olson MD Primary Care Provid er Reason for Referral * Diagnostic Test (Routine) - Closed Specialty Diagnoses / Procedures Referred By Ness palacio Referred To Contact Cardiology Diagnoses Positive blood culture Procedures Mobile Nery Wendy Skinner APRN [facility] [address] [place] [address] [facility] [place] [address] Referral ID Status Reason Start Date Expiration Date V isits Requested Visits Authorized [id number] Closed Specialty Service Requested 09/04/2021 09/04/2022 1 1 Reason for Visit * Diagnostic Test (Routine) - Closed Specialty Diagnoses / Procedures Referred By Ness palacio Referred To Contact Cardiology Diagnoses Positive blood culture Procedures Mobile [employer] Wendy Skinner APRN [facility] [address] [place] [address] [facility] [place] [address] Referral ID Status Reason Start Date Expiration Date V isits Requested Visits Authorized [id number] Closed Specialty Service Requested 09/04/2021 09/04/2022 1 1 Encounter Details Date Type Department Care Team (Latest Contact Info) Description 09/04/2021 2:05 PM EDT - 09/04/2021 11:59 PM EDT Hospital Encounter Mobile [place] [address] Wendy Skinner APRN [facility] [address] [place], [place] [id number] Positive blood culture Discharge Disposition: Home Social [...] Ramirez ? (Age): 1965(56y) Med Rec#: ? [id number] ?Sex: ?M ? Site Loc: ? [facility] ??Ht / Wt: ??187.96(cm)/90.7 Pt. Loc: ?Echo Lab ?BSA: ?2.17 Study Date: ?? 09/04/2021 ?Pt. Type: Inpatient Tape: ? Referring: Wendy Skinner Reading: Hakeem Alvarez ([id number]) Embedded Developer: JESSICA Diagnosis: *Bacteremia (R78.81) BP: ? 109/69 [...] Vmax ?0.77 ? m/sec ? MV deceleration [id number] ? msec ? MV A-wave Vmax ?0.77 [...] 09/04/2021 15:06:23 Images reviewed and interpretation verified [facility] Cardiac Ultrasound Laboratory Procedure Note Hakeem Alvarez MD - 09/04/2021 Procedure: Transthoracic Echocardiogram Patient: Ron BURROUGHS(Age): 1965(56y) Med Rec#: [id number] Sex: M Site Loc: [facility] Ht / Wt: 187.96(cm)/90.7 Pt. Loc: Echo Lab BSA: 2.17 Study Date: 09/04/2021 Pt. Type: Inpatient Tape: Referring: Wendy Skinner Reading: AntonioHakeem ([id number]) Embedded Developer: JESSICA Diagnosis: *Bacteremia (R78.81) BP: 109/69 SUMMARY: [...] MV E-wave Vmax 0.77 m/sec MV deceleration [id number] msec MV A-wave Vmax 0.77 m/sec MV [...] 09/04/2021 15:06:23 Images reviewed and interpretation verified [facility] Cardiac Ultrasound Laboratory Wendy Skinner BUTTONHOLE FACER ECHO ORDERABLES documented in this encounter Visit Diagnoses Diagnosis Positive blood culture Bacteremia documented in this encounter Care Teams Web Application Tester Relationship Specialty Start Date End Date Iain Olson MD [address] [facility] [address] PCP - [facility] Medicine 09/04/21 02/18/22 documented as of this encounter
--- OUTSIDE RECORDS SUMMARY | 2024-11-04 00:27 | XMS_ITS | Encounter Summary ---
Author Organization [facility] [place] [address] Care Team Providers Care Transmitter Chief Name Role Phone Lauri Dallas MD Primary Care Provider [phone] Reason for Referral * Consultation (Urgent) - Closed Specialty Diagnoses / Procedures Referred By Contac t Referred To Contact Wound Care Diagnoses Pressure injury of skin of buttock, unspecified injury stage, unspecified laterality Lauri Dallas MD [address] [place] [address] [place] [address] [facility] [place] [address] Referral ID Status Reason Start Date Expiration Date V isits Requested Visits Authorized [id number] Closed Consult, Test & Treat PCP Updated and/or Approved 02/19/2022 02/19/2023 6 6 Encounter Details Date Type Department Care Team (Late st Contact Info) Description 02/19/2022 Transcribe Orders eDH Incoming Referrals [phone] Lauri Dallas MD [address] [place] [address] [place] [address] Pressure injury of skin of [...] laterality documented in this encounter Care Teams Transmitter Chief Relationship Specialty Start Date End Date Lauri Dallas MD PCP - General Family Medicine 02/19/22 07/21/23 documented as of this encounter
--- OUTSIDE RECORDS SUMMARY | 2024-11-04 00:27 | XMS_ITS | Encounter Summary ---
Author Organization [facility] Address [facility] [place] [address] Care Team Providers Care Dairy Feed Mixing Operator Name Role Phone Rayan Pino APRN Primary Care Provider [phone] Reason for Visit * Consultation (Routine) - Closed Specialty Diagnoses / Procedures Referred By Contac t Referred To Contact Orthopaedics Diagnoses Bone lesion NON-SPECIFIC LYTIC LESIONS OF ILIAC BONES Mikayla Loomis MD [facility] [place] [address] Thom Cuevas MD [facility] [place] [address] Referral ID Status Reason Start Date Expiration Date V isits Requested Visits Authorized [id number] Closed Consult, Test & Treat 11/15/2020 11/15/2021 1 1 Encounter Details Date Type Department Care Team (Late st Contact Info) Description 02/19/2021 11:10 AM EDT TH Visit (TeleHealth) [place] [address] Thom Cuevas MD [facility] [place] [address] Bone lesion Social History Tobacco Use Types [...] Note [facility] [place], [place] [address] FAX: [facility] Newsletter Chief Complaint: Follow-up [...] copy this note to: Rayna Pino APRN [address] [place] [address] [place] [address] Mikayla Loomis MD [facility] [place] [address] documented in this encounter Plan of Treatment Scheduled Referrals Name Type Priority Associated Diagnoses Order Schedule Referral to Orthopaedics Outpatient Referral Routine Bone lesion Ordered: 11/15/2020 documented as of this encounter Visit Diagnoses Diagnosis Bone lesion Disorder of bone and cartilage, unspecified documented in this encounter Care Teams Dairy Feed Mixing Operator Relationship Specialty Start Date End Date Rayna Pino APRN [address] [place] [address] PCP - General Family Medicine 07/01/18 08/21/21 documented as of this encounter
--- OUTSIDE RECORDS SUMMARY | 2024-11-04 00:27 | XMS_ITS | Encounter Summary ---
[place] [address] Care Team Providers Care Supervisor Polishing Name Role Phone Iain Olson MD Primary Care Provid er Encounter Details Date Type Department Care Team (Late st Contact Info) Description 01/14/2022 Telephone [place] [phone] Angie Peña Social History Tobacco Use Types [...] filedocumented in this encounter Care Teams Supervisor Polishing Relationship Specialty Start Date End Date Iain Olson MD [address] [facility] [place] [address] PCP - [facility] Medicine 09/04/21 02/18/22 documented as of this encounter
--- OUTSIDE RECORDS SUMMARY | 2024-11-04 00:27 | XMS_ITS | Encounter Summary ---
Author Organization [facility] [place] [address] Care Team Providers Care Maintenance Electrician Name Role Phone Rayna Pino APRN Primary Care Provider Reason for Visit * - Closed Specialty Diagnoses / Procedures Referred By Contmadan t Referred To Contact Procedures Film Library- Storage Only DX Abdomen Rayna Pino APRN [address] [place] [address] Referral ID Status Reason Start Date Expiration Date Visits Re quested Visits Authorized [id number] Closed 04/05/2021 04/05/2022 1 1 Encounter Details Date Type Department Care Team (Late st Contact Info) Description 03/30/2021 12:05 AM EDT Ancillary Procedure Radiology Library at [facility] [place] [address] Rayna Pino APRN [address] [place] [address] Social History Tobacco Use Types Packs/Day [...] DX Abdomen (03/30/2021 12:05 AM EDT) Narrative [facility] - 04/05/2021 9:50 AM EDT This exam is auto-finalizing. It's purpose is for storage only. Rayna Pino APRN [place] FILM LIBRARY ORD ERABLES [place], [place] documented in this encounter Visit Diagnoses Not on filedocumented in this encounter Care Teams Maintenance Electrician Relationship Specialty Start Date End Date Ray[place] [address] PCP - General Family Medicine 07/01/18 08/21/21 documented as of this encounter
--- OUTSIDE RECORDS SUMMARY | 2024-11-04 00:27 | XMS_ITS | Encounter Summary ---
[place] [address] Care Team Providers Care Cloud Solutions Architect Name Role Phone Iain Olson MD Primary Care Provid er Encounter Details Date Type Department Care Team (Latest Contact Info) Description 10/17/2021 11:15 AM EST Office Visit [place] [address] [place] [address] Pressure ulcer of right foot, stage 3; [...] with any above symptoms Thursday- Thursday 8:00AM-4:30PM ([phone]). If weekends / holidays / evenings, please report to the Emergency Department. ?? documented in this encounter Progress Notes * Ana Rojas, PLASTICS SCIENTIST - 10/17/2021 11:15 AM EST Images from [...] HTN. He was hospitalized from 07/06/21-08/02/21 at [facility] with chronic recurrent multifocal osteomyelitis for which he has been treated multiple times with ciprofloxacin, vancomycin and zosyn. He was discharged home on two weeks of oral augmentin and bactrim to complete a four-week course. He was seen in followup by his PCP on 08/09/21. He was discharged home and returned to [facility] on 09/01 where he isstill inpatient, he [...] in NAD; arrives on stretcher Mobility: dependent, christa lift Edema: no Odor: [...] 1.8 cm 100% red, moist Serous, moderate [place], no increased warmth Left ischium 2 x 1.2 x 0.5cm 1.2 x 4 x 0.8 cm 100% red, moist Serous, moderate [place], no increased warmth PHOTOS taken today: Right [...] which was pressure mapped for him at [place] during his initial rehab stay after his [...] Patient continues to be a resident of [facility] but isstill trying to find a [...] with any above symptoms Thursday- Thursday 8:00AM-4:30PM ([phone]). If weekends / holidays / evenings, please report to the Emergency Department. Cc: Iain Olson MD [address] [place] [address] PCP: Iain Olson MD documented in this encounter Plan of Treatment Not on file documented as of this encounter Visit Diagnoses Diagnosis Pressure ulcer of right foot, stage 3 Pressure injury of buttock, stage 4, unspecified laterality Chronic recurrent multifocal osteomyelitis documented in this encounter Care Teams Cloud Solutions Architect Relationship Specialty Start Date End Date Iain Olson MD [address] [place] [address] PCP - [facility] Medicine 09/04/21 02/18/22 documented as of this encounter
--- OUTSIDE RECORDS SUMMARY | 2024-11-04 00:27 | XMS_ITS | Encounter Summary ---
[place] [address] Care Team Providers Care Tailor Women'S Garment Alteration Name Role Phone Lauri Dallas MD Primary Care Provider [phone] Encounter Details Date Type Department Care Team (Late st Contact Info) Description 04/30/2022 1:45 PM EDT Office [place] [phone] Malgorzata Whitfield APRN [facility] [place] [address] S/P C4-T2 PSIF for C6-7 bilateral facet [...] drainage (thick yellow/green drainage) Malodor Contact the [facility] with any above symptoms Thursday- Thursday 8:00AM-4:30PM ([phone]). If weekends / holidays / evenings, please [...] from the original note were not included. [facility] Progress Note Chief Complaint: [...] HTN. He was hospitalized from 07/06/21-08/02/21 at [facility] with chronic recurrent multifocal osteomyelitis for which he has been treated multipl e times with ciprofloxacin, vancomycin and zosyn. He was discharged home for two weeks of oral augmentin and bactrim to complete a four-week course. Readmitted to [facility] on 09/01/21and discharged home December 2021. Patient is now at home with home health care. December 2020-Pressure mapped at [facility] in [place]. Gel cushion in wheelchair Home Health Agency: [facility] Pertinent labs/tests: No recent labwork or imaging in eDH MRI done at [facility] of left ischial area on 03/07/22 ROS: Negative for constitutional symptoms Appetite: fair, has iraqi for breakfast, couple of candy bars during [...] epithelial along edges with epibole Moderate serous [place], no increased warmth The following photo was [...] clinic regardingthis). They are currently using the [facility] out of the [facility],phone number is . [...] off load the ischium. Call placed to [facility] pharmacy, they stated that this product was [...] with any above symptoms Thursday- Thursday 8:00AM-4:30PM ([phone]). If weekends / holidays / evenings, please [...] unspecified documented in this encounter Care Teams Tailor Women'S Garment Alteration Relationship Specialty Start Date End Date Lauri [place] MD PCP - General Family Medicine 02/19/22 07/21/23 documented as of this encounter
--- OUTSIDE RECORDS SUMMARY | 2024-11-04 00:27 | XMS_ITS | Encounter Summary ---
Author Organization [facility] [place] [address] Care Team Providers Care Band Leader Name Role Phone Iain Olson MD Primary Care Provid er Reason for Visit * Consultation (Routine) - Closed Specialty Diagnoses / Procedures Referred By Ness palacio Referred To Contact Wound Care Diagnoses Pressure ulcer of unspecified buttock, unspecified stage Osteomyelitis, unspecified Lauri Dallas MD [address] [place] [address] [place] [address] [facility] [place] [place] [address] Referral ID Status Reason Start Date Expiration Date V isits Requested Visits Authorized [id number] Closed Consult, [facility] PCP Updated and/or Approved 08/10/2021 02/07/2022 6 6 Encounter Details Date Type Department Care Team (Late st Contact Info) Description 09/19/2021 1:45 PM EST Office [place] [address] Malgorzata Whitfield APRN [facility] [place] [address] Quadriplegia; Pressure injury of buttock, [...] with any above symptoms Thursday- Thursday 8:00AM-4:30PM ([phone]). If weekends / holidays / evenings, please report to the Emergency Department. documented in this encounter Progress Notes * Malgorzata Whitfield APRN - 09/19/2021 1:45 PM EST Images from the original note were not included. [facility] Initial Consultation Note Reason [...] HTN. He was hospitalized from 07/06/21-08/02/21 at [facility] with chronic recurrent multifocal osteomyelitis for which he has been treated multipl e times with ciprofloxacin, vancomycin and zosyn. He was discharged home on two weeks of oral augmentin and bactrim to complete a four-week course. He was seen in follow up by his PCP on 08/09/21. He was discharged home and returned to [facility] on 09/01 where he is still [...] Thin yellow film, smooth pink Serous, moderate [place], no increased warmth Left ischium 1.2 x 4 x 0.8 cm 0.5 cm @ 4 Thin yellow film, smooth pink Serous, moderate [place], no increased warmth PHOTOS taken today: Left [...] which was pressure mapped for him at [facility] during his initial rehab stay after his [...] that is how he ended up in [facility] facility; he does not want to [...] with any above symptoms Thursday- Thursday 8:00AM-4:30PM ([phone]). If weekends / holidays / evenings, please report to the Emergency Department. Cc: Lauri [place] MD [address] [place] [address] PCP: Iain Olson MD documented in this encounter Plan of Treatment Not on file documented as of this encounter Visit Diagnoses Diagnosis Quadriplegia Quadriplegia, unspecified Pressure injury of buttock, stage 4, unspecified laterality S/P colostomy Colostomy status Chronic recurrent multifocal osteomyelitis Pressure ulcer of right foot, stage 3 documented in this encounter Care Teams Band Leader Relationship Specialty Start Date End Date Iain Olson MD [address] [place] [address] PCP - [facility] Medicine 09/04/21 02/18/22 documented as of this encounter
--- OUTSIDE RECORDS SUMMARY | 2024-11-04 00:27 | XMS_ITS | Encounter Summary ---
[place] [address] Care Team Providers Care Production Mechanic Tin Cans Name Role Phone Iain Olson MD Primary Care Provid er Encounter Details Date Type Department Care Team (Late st Contact Info) Description 01/08/2022 Telephone [place] [phone] Amelia Rm LPN Social History Tobacco Use [...] filedocumented in this encounter Care Teams Production Mechanic Tin Cans Relationship Specialty Start Date End Date Iain Olson MD [address] [place] [address] PCP - [facility] Medicine 09/04/21 02/18/22 documented as of this encounter
--- OUTSIDE RECORDS SUMMARY | 2024-11-04 00:27 | XMS_ITS | Encounter Summary ---
[place] [address] Care Team Providers Care Ditcher Operator Name Role Phone Lauri [place] MD Primary Care Provider [phone] Encounter Details Date Type Department Care Team (Late st Contact Info) Description 03/20/2022 [place] [address] Marjan Browning, RN Social History [...] Browning RN - 03/20/2022 2:13 PM EDTSummary: [facility] Minna, a nurse from [facility] called today regarding Femi Velasquez. She stated [...] has been more active than usual lately. Minna also stated that femi's PCP recently mecca his CRP and that value was elevated although she didn't have that number readily accessible to her. She is inquiring about possibly getting an order for acetic acid. Minna's number is [phone] Routing to provider for guidance and to [...] on filedocumented in this encounter Care Teams Ditcher Operator Relationship Specialty Start Date End Date Lauri Dallas MD PCP - General Family Medicine 02/19/22 07/21/23 documented as of this encounter
--- OUTSIDE RECORDS SUMMARY | 2024-11-04 00:27 | XMS_ITS | Encounter Summary ---
Author Organization [facility] [place] [address] Care Team Providers Care Production Control Planner Name Role Phone Rayna Pino APRN Primary Care Provider [phone] Reason for Visit * Reason Comments Follow-up Encounter Details Date Type Department Care Team (Late st Contact Info) Description 01/30/2021 10:40 AM EDT Office Visit [facility] [place] [address] Robbin Tong MD [facility] [place] [address] S/P C4-T2 PSIF for C6-7 bilateral facet [...] recovered from his initial index procedure at [facility] solo and recently was transferred to continue rehab at a senior living facility in [place] at [facility]. The patient overall endorses he is doing [...] rehab and is now currently graduated from [facility] and at a senior living facility in [facility]. He has improvement in his motor function [...] software Naomi Chung MD, PGY-4 Orthopaedic Surgery [facility] * Robbin Tong MD - 01/30/2021 10:40 AM EDT Images from the original note were not included. [facility] Robbin Tong MD MS Rayna Alvarez, WET PLANT OPERATORYamilex [address] [facility] [address] Dear Colleagues, I had the pleasure of seeing this patient at the [facility] for surgical evaluation. Procedure: Status post C4-T2 posterior cervical instrumented fusion for C6-7 bilateral jump facets and incomplete spinal cord injury with primarily a C6 level. He was discharged to [facility]. He is now up it [facility] in the rehab across the street. He is able todo a motorized wheelchair. He has had no change in neurologic status. X-rays are consistent with surgical invention. He had a blood clot for which he is being treated. He is still in touch with [facility] for further treatments of needed. All questions were answered. I can see the patient back in as needed basis. Sincerely, Robbin Tong MD [facility] Chair Maker - Orthopedic Spine Surgery Shelter Director - Department of Orthopedic Surgery / Academics and Research Plant Engineering Supervisor - [facility] 01/30/2021 Spine Center Response Trends Patient-reported scores: No flowsheet data found. documented in this encounter Plan of Treatment Not on file documented as of this encounter Visit Diagnoses Diagnosis S/P C4-T2 PSIF for C6-7 bilateral facet dislocation 10/27/20 Dr. Tong Arthrodesis status documented in this encounter Care Teams Production Control Planner Relationship Specialty Start Date End Date AlvarezRaynaHALEIGH [address] [place] [address] PCP - General Family Medicine 07/01/18 08/21/21 documented as of this encounter
--- OUTSIDE RECORDS SUMMARY | 2024-11-04 00:27 | XMS_ITS | Encounter Summary ---
[place] [address] Care Team Providers Care Clerical Administrative Assistant Name Role Phone Rayna Pino APRN Primary Care Provider [phone] Encounter Details Date Type Department Care Team (Late st Contact Info) Description 01/04/2021 Telephone [facility] [place] [address] Naresh Berg, RN Social History [...] PM EST Cervical spine xrays received from [facility] were reviewed by Dr. Tong, he reports that xrays look good and patient may come out of cervical collar. A call was placed to Dr. Sascha Isbell at [facility], he was informed of the above. [...] Isbell, patient will likely be discharged from [facility] in the upcoming week, he will movingto a snf facility in [place], where exactly has not been established. He will have their care tech reach out to us with where he [...] a return call. 01/15/2021 received update from [facility] Career Technical Education Instructor (Ruby Baldwin), patient will be discharged today or tomorrow to rehab in [place], [place], contact info; [place] at [facility] [place] P: [phone]. F: [phone]. Will reach out to Noni to plan f/u with Dr. Tong towards end of December. 1Contacted [facility], spoke with Annamarie, patient is arriving there today. Annamarie was connected with schedulers to book follow up appointment with Dr. Tong with xray prior, patient is scheduled for 01/30/2021. documented in this encounter Plan of Treatment Not on file documented as of this encounter Visit Diagnoses Not on filedocumented in this encounter Care Teams Clerical Administrative Assistant Relationship Specialty Start Date End Date Rayna Pino [place] [address] [place] [address] PCP - General Family Medicine 07/01/18 08/21/21 documented as of this encounter
--- OUTSIDE RECORDS SUMMARY | 2024-11-04 00:29 | XMS_ITS | Encounter Summary ---
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 Agency Comment Spec In Lab Radha Bolden MD CHEMISTRY ORDERABLES Performing Organization Address City/[facility]/ZIP Co de Phone Number [facility] [place] [address] * (ABNORMAL) Basic Metabolic Panel (non-fasting) (11/16/2020 12:31 AM EST) Glucose 116 65 - 199 mg/dL [facility] Comment:Diabetes: >=200 mg/d L plus symptoms Blood Urea Nitrogen 30(H) 10 - 20 mg/dL [facility] Creatinine 0.99 0.80 - 1.50 mg/dL [facility] Sodium 136 135 - 145 mmol/L [facility] Potassium 4.1 3.5 - 5.0 mmol/L [facility] Comment: Please note: ??Patients with WBC >100,000 may have falsely elevated Potassium levels. ??For accurate Potassium quantification in these patients send serum separator tube (gold top) for subsequent determinations. ??Contact the Clinical Chemistry Laboratory if there are any questions. Chloride 104 98 - 107 mmol/L [facility] Carbon Dioxide 22 22 - 31 mmol/L [facility] Anion Gap 10 5 - 15 mmol/L [facility] Calcium 9.3 8.5 - 10.5 mg/dL [facility] Est Glomerular Filtration Rate 87 >=60 mL/min/1. 73 m?? [facility] Comment: This patient? s [...] In Lab Radha Bolden MD CHEMISTRY ORDERABLES [facility] [place] [address] * XR Shoulder Left (Generic) (11/15/2020 7:01 [...] signed by: Eliane Stewart MD, [facility] ([phone]), at 11/15/2020 7:36 PM Narrative 11/15/2020 7:36 [...] below. Electronically signed by: Eliane Stewart MD, [facility]([phone]), at 11/15/2020 7:36 PM Adrienne Medellin MD [...] signed by: Crys Joaquin MD, [facility] ([phone]), at 11/15/2020 3:57 PM Narrative 11/15/2020 3:57 [...] 2:18 AM EST) Neutrophil % 62.5 % [facility] Neutrophil Absolute 4.66 1.70 - 6.10 x10(3)/mc L [facility] Lymph % 25.2 % [facility] Lymphocytes Abs 1.9 0.9 - 3.2 x10(3)/mc L [facility] Monocyte % 8.6 % [facility] Monocyte Abs 0.6 0.3 - 0.9 x10(3)/mc L [facility] Eos % 2.1 % [facility] Eosinophils Abs 0.2 0.0 - 0.4 x10(3)/mc L [facility] Basophil % 0.7 % [facility] Baso Absolute 0.0 0.0 - 0.1 x10(3)/mc L [facility] Immature Gran % 0.90 % [facility] Comment: Immature granulocytes(IG's)percentage and absolute count will include metamyelocytes, myelocytes, and promyelocytes. Blood smears from CBCs yielding IG's will be scanned manually for concordance. If this scan disagrees with the automated IG or if promyelocytes are noted, a manual differential will be performed. Immature Gran Absolute 0.07(H) 0.00 - 0.04 x10(3)/mc L [facility] Blood specimen (specimen) 11/15/2020 2:18 AM EST 11/15/2020 2:30 AM EST Narrative Resulting Agency Comment Spec In Lab Norberto Gonzalez MD HEMATOLOGY ORDERABLE S [facility] [place] [address] * (ABNORMAL) Hemogram (11/15/2020 2:18 AM EST) White Blood Cell 7.5 4.0 - 9.5 x10(3)/[facility] LABORATORY Red Blood Cell 3.63(L) 4.58 - 5.54 x10(6)/[facility] LAB[facility]ATORY Hemoglobin 10.9(L) 13.7 - 16.5 gm/dL [facility] Hematocrit 33.8(L) 40.5 - 48.5 % [facility] Mean Cell Volume 93.1 82.9 - 93.1 fL [facility] Mean Cell Hemoglobin 30.0 27.5 - 32.1 pg [facility] Mean Cell Hemoglobin Concentration 32.2 32.0 - 35.7 gm/dL [facility] Platelet 261 145 - 357 x10(3)/[facility] LABORATORY RDW Standard Deviation 43.1 36.0 - 45.0 [facility] LABORATORY RDW coefficient of variation 12.7 11.4 - 13.8 % [facility] Mean Platelet Volume 10.5 7.6 - 12.9 fL [facility] NRBC% auto 0.0 % [facility] NRBC Absolute 0.000 0.000 - 0.000 x10(3)/ L [facility] Blood specimen (specimen) 11/15/2020 2:18 AM EST 11/15/2020 2:30 AM EST Narrative Resulting Agency Comment Spec In Lab Norberto Gonzalez MD HEMATOLOGY ORDERABLE S Performing Organization Address City/[facility]/ZIP Co de Phone Number [facility] [place] [address] * Phosphorus (11/15/2020 2:18 AM EST) Phosphorus 4.0 2.5 - 4.5 mg/dL [facility] Blood specimen (specimen) 11/15/2020 2:18 AM EST 11/15/2020 2:30 AM EST Narrative Resulting Agency Comment Spec In Lab Radha Bolden MD CHEMISTRY ORDERABLES Performing Organization Address [facility] Co de Phone Number [facility] [place] [address] * Magnesium (11/15/2020 2:18 AM EST) Magnesium 0.77 0.69 - 1.07 mmol/L [facility] Blood specimen (specimen) 11/15/2020 2:18 AM EST 11/15/2020 2:30 AM EST Narrative Resulting Agency Comment Spec In Lab Radha Bolden MD CHEMISTRY ORDERABLES Performing Organization Address City/[facility]/ZIP Co de Phone Number [facility] [place] [address] * (ABNORMAL) Basic Metabolic Panel (non-fasting) (11/15/2020 2:18 AM EST) Glucose 112 65 - 199 mg/dL [facility] Comment:Diabetes: >=200 mg/d L plus symptoms Blood Urea Nitrogen 34(H) 10 - 20 mg/dL [facility] Creatinine 0.90 0.80 - 1.50 mg/dL [facility] Sodium 138 135 - 145 mmol/L [facility] Potassium 4.1 3.5 - 5.0 mmol/L [facility] Comment: Please note: ??Patients with WBC >100,000 may have falsely elevated Potassium levels. ??For accurate Potassium quantification in these patients send serum separator tube (gold top) for subsequent determinations. ??Contact the Clinical Chemistry Laboratory if there are any questions. Chloride 106 98 - 107 mmol/L [facility] Carbon Dioxide 20(L) 22 - 31 mmol/L [facility] Anion Gap 12 5 - 15 mmol/L [facility] Calcium 9.3 8.5 - 10.5 mg/dL [facility] Est Glomerular Filtration Rate 97 >=60 mL/min/1. 73 m?? [facility] Comment: This patient? s [...] Bolden MD CHEMISTRY ORDERABLES Performing Organization Address City/State/[facility] Co de Phone Number [facility] [place] [address] * (ABNORMAL) Differential, Automated (11/14/2020 1:12 AM EST) Neutrophil % 70.5 % [facility] Neutrophil Absolute 5.25 1.70 - 6.10 x10(3)/mc L [facility] Lymph % 18.8 % [facility] Lymphocytes Abs 1.4 0.9 - 3.2 x10(3)/mc L [facility] Monocyte % 6.8 % [facility] Monocyte Abs 0.5 0.3 - 0.9 x10(3)/[facility] Eos % 2.7 % [facility] Eosinophils Abs 0.2 0.0 - 0.4 x10(3)/[facility] Basophil % 0.4 % [facility] Baso Absolute 0.0 0.0 - 0.1 x10(3)/[facility] Immature Gran % 0.80 % [facility] Comment: Immature granulocytes(IG's)percentage and absolute count will include metamyelocytes, myelocytes, and promyelocytes. Blood smears from CBCs yielding IG's will be scanned manually for concordance. If this scan disagrees with the automated IG or if promyelocytes are noted, a manual differential will be performed. Immature Gran Absolute 0.06(H) 0.00 - 0.04 x10(3)/[facility] LAB[facility] Blood specimen (specimen) 11/14/2020 1:12 AM EST 11/14/2020 1:31 AM EST Narrative Resulting Agency Comment Spec In Lab Norberto Gonzalez MD HEMATOLOGY ORDERABLE S [facility] [place] [address] * (ABNORMAL) Hemogram (11/14/2020 1:12 AM EST) White Blood Cell 7.4 4.0 - 9.5 x10(3)/[facility] Red Blood Cell 3.39(L) 4.58 - 5.54 x10(6)/[facility] Hemoglobin 10.4(L) 13.7 - 16.5 gm/dL [facility] Hematocrit 31.6(L) 40.5 - 48.5 % [facility] Mean Cell Volume 93.2(H) 82.9 - 93.1 fL [facility] Mean Cell Hemoglobin 30.7 27.5 - 32.1 pg [facility] Mean Cell Hemoglobin Concentration 32.9 32.0 - 35.7 gm/dL [facility] Platelet 314 145 - 357 x10(3)/mc L [facility] RDW Standard Deviation 42.7 36.0 - 45.0 fL [facility] RDW coefficient of variation 12.5 11.4 - 13.8 % [facility] Mean Platelet Volume 10.7 7.6 - 12.9 fL [facility] NRBC% auto 0.0 % [facility] NRBC Absolute 0.000 0.000 - 0.000 x10(3)/mc L [facility] Blood specimen (specimen) 11/14/2020 1:12 AM EST 11/14/2020 1:31 AM EST Narrative Resulting Agency Comment Spec In Lab Norberto Gonzalez MD HEMATOLOGY ORDERABLE S Performing Organization Address City/[facility]/ZIP Co de Phone Number [facility] [place] [address] * Phosphorus (11/14/2020 1:12 AM EST) Phosphorus 4.1 2.5 - 4.5 mg/dL [facility] Blood specimen (specimen) 11/14/2020 1:12 AM EST 11/14/2020 1:31 AM EST Narrative Resulting Agency Comment Spec In Lab Radha Bolden MD CHEMISTRY ORDERABLES Performing Organization Address City/[facility]/ZIP Co de Phone Number [facility] [place] [address] * Magnesium (11/14/2020 1:12 AM EST) Magnesium 0.77 0.69 - 1.07 mmol/L [facility] Blood specimen (specimen) 11/14/2020 1:12 AM EST 11/14/2020 1:31 AM EST Narrative Resulting Agency Comment Spec In Lab Radha Bolden MD CHEMISTRY ORDERABLES [facility] [place] [address] * (ABNORMAL) Basic Metabolic Panel (non-fasting) (11/14/2020 1:12 AM EST) Glucose 118 65 - 199 mg/dL [facility] Comment:Diabetes: >=200 mg/d L plus symptoms Blood Urea Nitrogen 38(H) 10 - 20 mg/dL [facility] Creatinine 0.85 0.80 - 1.50 mg/dL [facility] Sodium 138 135 - 145 mmol/L [facility] Potassium 4.1 3.5 - 5.0 mmol/L [facility] Comment: Please note: ??Patients with WBC >100,000 may have falsely elevated Potassium levels. ??For accurate Potassium quantification in these patients send serum separator tube (gold top) for subsequent determinations. ??Contact the Clinical Chemistry Laboratory if there are any questions. Chloride 109(H) 98 - 107 mmol/L [facility] Carbon Dioxide 19(L) 22 - 31 mmol/L [facility] Anion Gap 10 5 - 15 mmol/L [facility] Calcium 9.1 8.5 - 10.5 mg/dL [facility] Est Glomerular Filtration Rate 99 >=60 mL/min/1. 73 m?? [facility] Comment: This patient? s [...] In Lab Radha Bolden MD CHEMISTRY ORDERABLES [facility] [place] [address] * (ABNORMAL) Differential, Automated (11/13/2020 3:58 AM EST) Neutrophil % 72.9 % [facility] Neutrophil Absolute 6.82(H) 1.70 - 6.10 x10(3)/mc L [facility] Lymph % 16.4 % [facility] Lymphocytes Abs 1.5 0.9 - 3.2 x10(3)/mc L [facility] Monocyte % 6.8 % [facility] Monocyte Abs 0.6 0.3 - 0.9 x10(3)/mc L [facility] Eos % 2.4 % [facility] Eosinophils Abs 0.2 0.0 - 0.4 x10(3)/ L [facility] Basophil % 0.5 % [facility] Baso Absolute 0.0 0.0 - 0.1 x10(3)/mc L [facility] Immature Gran % 1.00 % [facility] Comment: Immature granulocytes(IG's)percentage and absolute count will include metamyelocytes, myelocytes, and promyelocytes. Blood smears from CBCs yielding IG's will be scanned manually for concordance. If this scan disagrees with the automated IG or if promyelocytes are noted, a manual differential will be performed. Immature Gran Absolute 0.09(H) 0.00 - 0.04 x10(3)/mc L [facility] Blood specimen (specimen) 11/13/2020 3:58 AM EST 11/13/2020 4:12 AM EST Narrative Resulting Agency Comment Spec In Lab Norberto Gonzalez MD HEMATOLOGY ORDERABLE S [facility] [place] [address] * (ABNORMAL) Hemogram (11/13/2020 3:58 AM EST) White Blood Cell 9.4 4.0 - 9.5 x10(3)/mc L [facility] Red Blood Cell 3.41(L) 4.58 - 5.54 x10(6)/mc L [facility] Hemoglobin 10.4(L) 13.7 - 16.5 gm/dL [facility] Hematocrit 31.7(L) 40.5 - 48.5 % [facility] Mean Cell Volume 93.0 82.9 - 93.1 fL [facility] Mean Cell Hemoglobin 30.5 27.5 - 32.1 pg [facility] Mean Cell Hemoglobin Concentration 32.8 32.0 - 35.7 gm/dL [facility] Platelet 330 145 - 357 x10(3)/mc L [facility] RDW Standard Deviation 41.9 36.0 - 45.0 [facility] RDW coefficient of variation 12.3 11.4 - 13.8 % [facility] Mean Platelet Volume 10.5 7.6 - 12.9 fL [facility] NRBC% auto 0.0 % [facility] NRBC Absolute 0.000 0.000 - 0.000 x10(3)/mc L [facility] Blood specimen (specimen) 11/13/2020 3:58 AM EST 11/13/2020 4:12 AM EST Narrative Resulting Agency Comment Spec In Lab Norberto Gonzalez MD HEMATOLOGY ORDERABLE S [facility] [place] [address] * Phosphorus (11/13/2020 3:58 AM EST) Phosphorus 3.5 2.5 - 4.5 mg/dL [facility] Blood specimen (specimen) 11/13/2020 3:58 AM EST 11/13/2020 4:12 AM EST Narrative Resulting Agency Comment Spec In Lab Radha Bolden MD CHEMISTRY ORDERABLES Performing Organization Address [facility]/ZIP Co de Phone Number [facility] [place] [address] * Magnesium (11/13/2020 3:58 AM EST) Pathologist [facility] Magnesium 0.76 0.69 - 1.07 mmol/L [facility] Blood specimen (specimen) 11/13/2020 3:58 AM EST 11/13/2020 4:12 AM EST Narrative Resulting Agency Comment Spec In Lab Radha Bolden MD CHEMISTRY ORDERABLES Performing Organization Address [facility] Co de Phone Number [facility] [place] [address] * (ABNORMAL) Basic Metabolic Panel (non-fasting) (11/13/2020 3:58 AM EST) Pathologist [facility] Glucose 109 65 - 199 mg/dL [facility] Comment:Diabetes: >=200 mg/d L plus symptoms Blood Urea Nitrogen 41(H) 10 - 20 mg/dL [facility] Creatinine 0.77(L) 0.80 - 1.50 mg/dL [facility] Sodium 139 135 - 145 mmol/L [facility] Potassium 4.2 3.5 - 5.0 mmol/L [facility] Comment: Please note: ??Patients with WBC >100,000 may have falsely elevated Potassium levels. ??For accurate Potassium quantification in these patients send serum separator tube (gold top) for subsequent determinations. ??Contact the Clinical Chemistry Laboratory if there are any questions. Chloride 110(H) 98 - 107 mmol/L [facility] Carbon Dioxide 20(L) 22 - 31 mmol/L [facility] Anion Gap 9 5 - 15 mmol/L [facility] Calcium 8.9 8.5 - 10.5 mg/dL [facility] Est Glomerular Filtration Rate 104 >=60 mL/min/1. 73 m?? [facility] Comment: This patient? s [...] Bolden MD CHEMISTRY ORDERABLES Performing Organization Address City/State/[facility] Co de Phone Number [facility] [place] [address] * (ABNORMAL) Differential, Automated (11/12/2020 2:40 AM EST) Neutrophil % 66.6 % [facility] Neutrophil Absolute 5.38 1.70 - 6.10 x10(3)/mc L [facility] Lymph % 21.8 % [facility] Lymphocytes Abs 1.8 0.9 - 3.2 x10(3)/mc L [facility] Monocyte % 6.9 % [facility] Monocyte Abs 0.6 0.3 - 0.9 x10(3)/mc L [facility] Eos % 3.2 % [facility] Eosinophils Abs 0.3 0.0 - 0.4 x10(3)/ L [facility] Basophil % 0.6 % [facility] Baso Absolute 0.0 0.0 - 0.1 x10(3)/[facility] Immature Gran % 0.90 % [facility] Comment: Immature granulocytes(IG's)percentage and absolute count will include metamyelocytes, myelocytes, and promyelocytes. Blood smears from CBCs yielding IG's will be scanned manually for concordance. If this scan disagrees with the automated IG or if promyelocytes are noted, a manual differential will be performed. Immature Gran Absolute 0.07(H) 0.00 - 0.04 x10(3)/[facility] Blood specimen (specimen) 11/12/2020 2:40 AM EST 11/12/2020 2:47 AM EST Narrative Resulting Agency Comment Spec In Lab Norberto Gonzalez MD HEMATOLOGY ORDERABLE S Performing Organization Address City/State/[facility] Co de Phone Number [facility] [place] [id number] * (ABNORMAL) Hemogram (11/12/2020 2:40 AM EST) White Blood Cell 8.1 4.0 - 9.5 x10(3)/[facility] Red Blood Cell 3.39(L) 4.58 - 5.54 x10(6)/[facility] Hemoglobin 10.4(L) 13.7 - 16.5 gm/dL [facility] Hematocrit 31.5(L) 40.5 - 48.5 % [facility] Mean Cell Volume 92.9 82.9 - 93.1 fL [facility] Mean Cell Hemoglobin 30.7 27.5 - 32.1 pg [facility] Mean Cell Hemoglobin Concentration 33.0 32.0 - 35.7 gm/dL [facility] Platelet 326 145 - 357 x10(3)/[facility] RDW Standard Deviation 42.4 36.0 - 45.0 [facility] RDW coefficient of variation 12.4 11.4 - 13.8 % [facility] Mean Platelet Volume 10.5 7.6 - 12.9 [facility] NRBC% auto 0.0 % [facility] NRBC Absolute 0.000 0.000 - 0.000 x10(3)/mc L [facility] Blood specimen (specimen) 11/12/2020 2:40 AM EST 11/12/2020 2:47 AM EST Narrative Resulting Agency Comment Spec In Lab Norberto Gonzalez MD HEMATOLOGY ORDERABLE S Performing Organization Address City/[facility]/ZIP Co de Phone Number [facility] [place] [address] * Phosphorus (11/12/2020 2:40 AM EST) Phosphorus 4.0 2.5 - 4.5 mg/dL [facility] Blood specimen (specimen) 11/12/2020 2:40 AM EST 11/12/2020 2:47 AM EST Narrative Resulting Agency Comment Spec In Lab Radha Bolden MD CHEMISTRY ORDERABLES Performing Organization Address City/[facility]/ZIP Co de Phone Number [facility] [place] [address] * Magnesium (11/12/2020 2:40 AM EST) Magnesium 0.81 0.69 - 1.07 mmol/L [facility] Blood specimen (specimen) 11/12/2020 2:40 AM EST 11/12/2020 2:47 AM EST Narrative Resulting Agency Comment Spec In Lab Radha Bolden MD CHEMISTRY ORDERABLES Performing Organization Address City/[facility]/ZIP Co de Phone Number [facility] [place] [address] * (ABNORMAL) Basic Metabolic Panel (non-fasting) (11/12/2020 2:40 AM EST) Glucose 97 65 - 199 mg/dL [facility] Comment:Diabetes: >=200 mg/d L plus symptoms Blood Urea Nitrogen 38(H) 10 - 20 mg/dL [facility] Creatinine 0.81 0.80 - 1.50 mg/dL [facility] Sodium 139 135 - 145 mmol/L [facility] Potassium 4.4 3.5 - 5.0 mmol/L [facility] Comment: Please note: ??Patients with WBC >100,000 may have falsely elevated Potassium levels. ??For accurate Potassium quantification in these patients send serum separator tube (gold top) for subsequent determinations. ??Contact the Clinical Chemistry Laboratory if there are any questions. Chloride 108(H) 98 - 107 mmol/L [facility] Carbon Dioxide 21(L) 22 - 31 mmol/L [facility] Anion Gap 10 5 - 15 mmol/L [facility] Calcium 8.9 8.5 - 10.5 mg/dL [facility] Est Glomerular Filtration Rate 101 >=60 mL/min/1. 73 m?? [facility] Comment: This patient? s [...] Bolden MD CHEMISTRY ORDERABLES Performing Organization Address City/[facility]/ZIP Co de Phone Number [facility] [place] [address] * (ABNORMAL) Differential, Automated (11/11/2020 4:15 AM EST) Neutrophil % 68.2 % [facility] Neutrophil Absolute 5.80 1.70 - 6.10 x10(3)/mc L [facility] Lymph % 18.1 % [facility] Lymphocytes Abs 1.5 0.9 - 3.2 x10(3)/mc L [facility] Monocyte % 8.4 % [facility] Monocyte Abs 0.7 0.3 - 0.9 x10(3)/mc L [facility] Eos % 3.8 % [facility] Eosinophils Abs 0.3 0.0 - 0.4 x10(3)/mc L [facility] Basophil % 0.6 % [facility] Baso Absolute 0.0 0.0 - 0.1 x10(3)/mc L [facility] Immature Gran % 0.90 % [facility] Comment: Immature granulocytes(IG's)percentage and absolute count will include metamyelocytes, myelocytes, and promyelocytes. Blood smears from CBCs yielding IG's will be scanned manually for concordance. If this scan disagrees with the automated IG or if promyelocytes are noted, a manual differential will be performed. Immature Gran Absolute 0.08(H) 0.00 - 0.04 x10(3)/mc L [facility] Blood specimen (specimen) 11/11/2020 4:15 AM EST 11/11/2020 4:37 AM EST Narrative Resulting Agency Comment Spec In Lab Norberto Gonzalez MD HEMATOLOGY ORDERABLE S Performing Organization Address City/[facility]/ZIP Co de Phone Number [facility] [place] [address] * (ABNORMAL) Hemogram (11/11/2020 4:15 AM EST) White Blood Cell 8.5 4.0 - 9.5 x10(3)/ L [facility] Red Blood Cell 3.34(L) 4.58 - 5.54 x10(6)/mc L [facility] Hemoglobin 10.2(L) 13.7 - 16.5 gm/dL [facility] Hematocrit 31.3(L) 40.5 - 48.5 % [facility] Mean Cell Volume 93.7(H) 82.9 - 93.1 fL [facility] Mean Cell Hemoglobin 30.5 27.5 - 32.1 pg [facility] Mean Cell Hemoglobin Concentration 32.6 32.0 - 35.7 gm/dL [facility] Platelet 329 145 - 357 x10(3)/[facility] RDW Standard Deviation 42.5 36.0 - 45.0 [facility] RDW coefficient of variation 12.4 11.4 - 13.8 % [facility] Mean Platelet Volume 10.3 7.6 - 12.9 [facility] NRBC% auto 0.0 % [facility] NRBC Absolute 0.000 0.000 - 0.000 x10(3)/[facility] Blood specimen (specimen) 11/11/2020 4:15 AM EST 11/11/2020 4:37 AM EST Narrative Resulting Agency Comment Spec In Lab Norberto Gonzalez MD HEMATOLOGY ORDERABLE S [facility] [place] [address] * Phosphorus (11/11/2020 4:15 AM EST) Phosphorus 4.4 2.5 - 4.5 mg/dL [facility] Blood specimen (specimen) 11/11/2020 4:15 AM EST 11/11/2020 4:37 AM EST Narrative Resulting Agency Comment Spec In Lab Radha Bolden MD CHEMISTRY ORDERABLES Performing Organization Address City/[facility] Co de Phone Number [facility] [place] [address] * Magnesium (11/11/2020 4:15 AM EST) Magnesium 0.82 0.69 - 1.07 mmol/L [facility] Blood specimen (specimen) 11/11/2020 4:15 AM EST 11/11/2020 4:37 AM EST Narrative Resulting Agency Comment Spec In Lab Radha Bolden MD CHEMISTRY ORDERABLES Performing Organization Address [facility] de Phone Number [facility] [place] [address] * (ABNORMAL) Basic Metabolic Panel (non-fasting) (11/11/2020 4:15 AM EST) Glucose 96 65 - 199 mg/dL [facility] Comment:Diabetes: >=200 mg/d L plus symptoms Blood Urea Nitrogen 38(H) 10 - 20 mg/dL [facility] Creatinine 0.79(L) 0.80 - 1.50 mg/dL [facility] Sodium 138 135 - 145 mmol/L [facility] Potassium 4.5 3.5 - 5.0 mmol/L [facility] Comment: Please note: ??Patients with WBC >100,000 may have falsely elevated Potassium levels. ??For accurate Potassium quantification in these patients send serum separator tube (gold top) for subsequent determinations. ??Contact the Clinical Chemistry Laboratory if there are any questions. Chloride 107 98 - 107 mmol/L [facility] Carbon Dioxide 21(L) 22 - 31 mmol/L [facility] Anion Gap 10 5 - 15 mmol/L [facility] Calcium 8.8 8.5 - 10.5 mg/dL [facility] Est Glomerular Filtration Rate 103 >=60 mL/min/1. 73 m?? [facility] Comment: This patient? s [...] Bolden MD CHEMISTRY ORDERABLES Performing Organization Address City/State/[facility] Co de Phone Number [facility] [place] [address] * (ABNORMAL) Differential, Automated (11/10/2020 1:00 AM EST) Neutrophil % 65.3 % [facility] Neutrophil Absolute 4.43 1.70 - 6.10 x10(3)/mc L [facility] Lymph % 17.6 % [facility] Lymphocytes Abs 1.2 0.9 - 3.2 x10(3)/mc L [facility] Monocyte % 10.2 % [facility] Monocyte Abs 0.7 0.3 - 0.9 x10(3)/mc L [facility] Eos % 5.0 % [facility] Eosinophils Abs 0.3 0.0 - 0.4 x10(3)/mc L [facility] Basophil % 0.6 % [facility] Baso Absolute 0.0 0.0 - 0.1 x10(3)/mc L [facility] Immature Gran % 1.30 % [facility] Comment: Immature granulocytes(IG's)percentage and absolute count will include metamyelocytes, myelocytes, and promyelocytes. Blood smears from CBCs yielding IG's will be scanned manually for concordance. If this scan disagrees with the automated IG or if promyelocytes are noted, a manual differential will be performed. Immature Gran Absolute 0.09(H) 0.00 - 0.04 x10(3)/[facility] Blood specimen (specimen) 11/10/2020 1:00 AM EST 11/10/2020 1:32 AM EST Narrative Resulting Agency Comment Spec In Lab Norberto Gonzalez MD HEMATOLOGY ORDERABLE S [facility] [place] [address] * (ABNORMAL) Hemogram (11/10/2020 1:00 AM EST) White Blood Cell 6.8 4.0 - 9.5 x10(3)/[facility] Red Blood Cell 3.38(L) 4.58 - 5.54 x10(6)/[facility] Hemoglobin 10.2(L) 13.7 - 16.5 gm/dL [facility] Hematocrit 31.5(L) 40.5 - 48.5 % [facility] Mean Cell Volume 93.2(H) 82.9 - 93.1 fL [facility] Mean Cell Hemoglobin 30.2 27.5 - 32.1 pg [facility] Mean Cell Hemoglobin Concentration 32.4 32.0 - 35.7 gm/dL [facility] Platelet 358(H) 145 - 357 x10(3)/[facility] RDW Standard Deviation 42.3 36.0 - 45.0 fL [facility] RDW coefficient of variation 12.3 11.4 - 13.8 % [facility] Mean Platelet Volume 10.6 7.6 - 12.9 fL [facility] NRBC% auto 0.0 % [facility] NRBC Absolute 0.000 0.000 - 0.000 x10(3)/mc L [facility] Blood specimen (specimen) 11/10/2020 1:00 AM EST 11/10/2020 1:32 AM EST Narrative Resulting Agency Comment Spec In Lab Norberto Gonzalez MD HEMATOLOGY ORDERABLE S Performing Organization Address City/[facility]/ZIP Co de Phone Number [facility] [place] [address] * Phosphorus (11/10/2020 1:00 AM EST) Phosphorus 3.2 2.5 - 4.5 mg/dL [facility] Blood specimen (specimen) 11/10/2020 1:00 AM EST 11/10/2020 1:32 AM EST Narrative Resulting Agency Comment Spec In Lab Radha Bolden MD CHEMISTRY ORDERABLES Performing Organization Address [facility] Co de Phone Number [facility] [place] [address] * Magnesium (11/10/2020 1:00 AM EST) Magnesium 0.87 0.69 - 1.07 mmol/L [facility] Blood specimen (specimen) 11/10/2020 1:00 AM EST 11/10/2020 1:32 AM EST Narrative Resulting Agency Comment Spec In Lab Radha Bolden MD CHEMISTRY ORDERABLES Performing Organization Address [facility] Co de Phone Number [facility] [place] [address] * (ABNORMAL) Basic Metabolic Panel (non-fasting) (11/10/2020 1:00 AM EST) Glucose 105 65 - 199 mg/dL [facility] Comment:Diabetes: >=200 mg/d L plus symptoms Blood Urea Nitrogen 36(H) 10 - 20 mg/dL [facility] Creatinine 0.91 0.80 - 1.50 mg/dL [facility] Sodium 137 135 - 145 mmol/L [facility] Potassium 4.6 3.5 - 5.0 mmol/L [facility] Comment: Please note: ??Patients with WBC >100,000 may have falsely elevated Potassium levels. ??For accurate Potassium quantification in these patients send serum separator tube (gold top) for subsequent determinations. ??Contact the Clinical Chemistry Laboratory if there are any questions. Chloride 103 98 - 107 mmol/L [facility] Carbon Dioxide 23 22 - 31 mmol/L [facility] Anion Gap 11 5 - 15 mmol/L [facility] Calcium 8.9 8.5 - 10.5 mg/dL [facility] Est Glomerular Filtration Rate 96 >=60 mL/min/1. 73 m?? [facility] Comment: This patient? s [...] In Lab Radha Bolden MD CHEMISTRY ORDERABLES [facility] [place] [address] * XR Cervical Spine 2 or 3 [...] signed by: Crys Joaquin MD, [facility] ([phone]), at 11/09/2020 3:29 PM Narrative 11/09/2020 3:29 [...] 2:25 AM EST) Neutrophil % 66.7 % [facility] Neutrophil Absolute 4.46 1.70 - 6.10 x10(3)/mc L [facility] Lymph % 15.2 % [facility] Lymphocytes Abs 1.0 0.9 - 3.2 x10(3)/mc L [facility] Monocyte % 11.8 % [facility] Monocyte Abs 0.8 0.3 - 0.9 x10(3)/mc L [facility] Eos % 4.8 % [facility] Eosinophils Abs 0.3 0.0 - 0.4 x10(3)/mc L [facility] Basophil % 0.6 % [facility] Baso Absolute 0.0 0.0 - 0.1 x10(3)/mc L [facility] Immature Gran % 0.90 % [facility] Comment: Immature granulocytes(IG's)percentage and absolute count will include metamyelocytes, myelocytes, and promyelocytes. Blood smears from CBCs yielding IG's will be scanned manually for concordance. If this scan disagrees with the automated IG or if promyelocytes are noted, a manual differential will be performed. Immature Gran Absolute 0.06(H) 0.00 - 0.04 x10(3)/mc L [facility] Blood specimen (specimen) 11/09/2020 2:25 AM EST 11/09/2020 2:45 AM EST Narrative Resulting Agency Comment Spec In Lab Norberto Gonzalez MD HEMATOLOGY ORDERABLE S [facility] [place] [address] * (ABNORMAL) Hemogram (11/09/2020 2:25 AM EST) White Blood Cell 6.7 4.0 - 9.5 x10(3)/mc L [facility] Red Blood Cell 3.27(L) 4.58 - 5.54 x10(6)/mc L [facility] Hemoglobin 9.8(L) 13.7 - 16.5 gm/dL [facility] Hematocrit 30.7(L) 40.5 - 48.5 % [facility] Mean Cell Volume 93.9(H) 82.9 - 93.1 [facility] Mean Cell Hemoglobin 30.0 27.5 - 32.1 pg [facility] Mean Cell Hemoglobin Concentration 31.9(L) 32.0 - 35.7 gm/dL [facility] Platelet 322 145 - 357 x10(3)/mc L [facility] RDW Standard Deviation 42.5 36.0 - 45.0 [facility] RDW coefficient of variation 12.4 11.4 - 13.8 % [facility] Mean Platelet Volume 10.5 7.6 - 12.9 [facility] NRBC% auto 0.0 % [facility] NRBC Absolute 0.000 0.000 - 0.000 x10(3)/mc L [facility] Blood specimen (specimen) 11/09/2020 2:25 AM EST 11/09/2020 2:45 AM EST Narrative Resulting Agency Comment Spec In Lab Norberto Gonzalez MD HEMATOLOGY ORDERABLE S Performing Organization Address City/[facility]/ZIP Co de Phone Number [facility] [place] [address] * Phosphorus (11/09/2020 2:25 AM EST) Phosphorus 4.0 2.5 - 4.5 mg/dL [facility] Blood specimen (specimen) 11/09/2020 2:25 AM EST 11/09/2020 2:45 AM EST Narrative Resulting Agency Comment Spec In Lab Radha Bolden MD CHEMISTRY ORDERABLES Performing Organization Address [facility] Co de Phone Number [facility] [place] [address] * Magnesium (11/09/2020 2:25 AM EST) Magnesium 0.93 0.69 - 1.07 mmol/L [facility] Blood specimen (specimen) 11/09/2020 2:25 AM EST 11/09/2020 2:45 AM EST Narrative Resulting Agency Comment Spec In Lab Radha Bolden MD CHEMISTRY ORDERABLES Performing Organization Address [facility] Co de Phone Number [facility] [place] [address] * (ABNORMAL) Basic Metabolic Panel (non-fasting) (11/09/2020 2:25 AM EST) Glucose 121 65 - 199 mg/dL [facility] Comment:Diabetes: >=200 mg/d L plus symptoms Blood Urea Nitrogen 33(H) 10 - 20 mg/dL [facility] Creatinine 0.79(L) 0.80 - 1.50 mg/dL [facility] Sodium 135 135 - 145 mmol/L [facility] [facility] Potassium 4.7 3.5 - 5.0 mmol/L [facility] Comment: Please note: ??Patients with WBC >100,000 may have falsely elevated Potassium levels. ??For accurate Potassium quantification in these patients send serum separator tube (gold top) for subsequent determinations. ??Contact the Clinical Chemistry Laboratory if there are any questions. Chloride 102 98 - 107 mmol/L [facility] Carbon Dioxide 23 22 - 31 mmol/L [facility] Anion Gap 10 5 - 15 mmol/L [facility] Calcium 8.7 8.5 - 10.5 mg/dL [facility] Est Glomerular Filtration Rate 103 >=60 mL/min/1. 73 m?? [facility] Comment: This patient? s [...] In Lab Radha Bolden MD CHEMISTRY ORDERABLES [facility] [place] [address] * CT Abdomen & Pelvis w Contrast (11/08/2020 10:42 AM EST) Anatomical Region Laterality Modality Abdomen, Pelvis Computed Tomogra phy Impressions 11/08/2020 11:04 AM EST 1. ??No signs of small bowel obstruction with the small bowel decompressed. There is a mild to moderate distention of the colon with gas, fluid, and stool which could represent ileus/early [place]. 2. ??There is a trace amount of [...] signed by: Blayne Ferrara MD, [facility] ([phone]), at 11/08/2020 11:04 AM Narrative 11/08/2020 11:04 [...] signed by: Blayne Ferrara MD, [facility]([phone]), at 11/08/2020 11:04 AM Radha Bolden MD IMG CT ORDERABLES * (ABNORMAL) Differential, Automated (11/08/2020 1:35 AM EST) Neutrophil % 75.7 % [facility] Neutrophil Absolute 6.99(H) 1.70 - 6.10 x10(3)/mc L [facility] Lymph % 11.9 % [facility] Lymphocytes Abs 1.1 0.9 - 3.2 x10(3)/mc L [facility] Monocyte % 9.3 % [facility] Monocyte Abs 0.9 0.3 - 0.9 x10(3)/mc L [facility] Eos % 2.2 % [facility] Eosinophils Abs 0.2 0.0 - 0.4 x10(3)/mc L [facility] Basophil % 0.3 % [facility] Baso Absolute 0.0 0.0 - 0.1 x10(3)/mc L [facility] Immature Gran % 0.60 % [facility] Comment: Immature granulocytes(IG's)percentage and absolute count will include metamyelocytes, myelocytes, and promyelocytes. Blood smears from CBCs yielding IG's will be scanned manually for concordance. If this scan disagrees with the automated IG or if promyelocytes are noted, a manual differential will be performed. Immature Gran Absolute 0.06(H) 0.00 - 0.04 x10(3)/ L [facility] Blood specimen (specimen) 11/08/2020 1:35 AM EST 11/08/2020 1:56 AM EST Narrative Resulting Agency Comment Spec In Lab Norberto Gonzalez MD HEMATOLOGY ORDERABLE S [facility] [place] [address] * (ABNORMAL) Hemogram (11/08/2020 1:35 AM EST) White Blood Cell 9.2 4.0 - 9.5 x10(3)/ L [facility] Red Blood Cell 3.24(L) 4.58 - 5.54 x10(6)/mc L [facility] Hemoglobin 9.9(L) 13.7 - 16.5 gm/dL [facility] Hematocrit 29.8(L) 40.5 - 48.5 % [facility] Mean Cell Volume 92.0 82.9 - 93.1 fL [facility] Mean Cell Hemoglobin 30.6 27.5 - 32.1 pg [facility] Mean Cell Hemoglobin Concentration 33.2 32.0 - 35.7 gm/dL [facility] Platelet 310 145 - 357 x10(3)/mc L [facility] RDW Standard Deviation 41.0 36.0 - 45.0 fL [facility] RDW coefficient of variation 12.1 11.4 - 13.8 % [facility] Mean Platelet Volume 10.6 7.6 - 12.9 fL [facility] NRBC% auto 0.0 % [facility] NRBC Absolute 0.000 0.000 - 0.000 x10(3)/mc L [facility] Blood specimen (specimen) 11/08/2020 1:35 AM EST 11/08/2020 1:56 AM EST Narrative Resulting Agency Comment Spec In Lab Norberto Gonzalez MD HEMATOLOGY ORDERABLE S [facility] [place] [address] * (ABNORMAL) Phosphorus (11/08/2020 1:35 AM EST) Phosphorus 4.8(H) 2.5 - 4.5 mg/dL [facility] Blood specimen (specimen) 11/08/2020 1:35 AM EST 11/08/2020 1:55 AM EST Narrative Resulting Agency Comment Spec In Lab Radha Bolden MD CHEMISTRY ORDERABLES Performing Organization Address [facility]/ZIP Co de Phone Number [facility] [place] [address] * Magnesium (11/08/2020 1:35 AM EST) Magnesium 0.94 0.69 - 1.07 mmol/L [facility] Blood specimen (specimen) 11/08/2020 1:35 AM EST 11/08/2020 1:55 AM EST Narrative Resulting Agency Comment Spec In Lab Radha Bolden MD CHEMISTRY ORDERABLES Performing Organization Address [facility]/ZIP Co de Phone Number [facility] [place] [address] * (ABNORMAL) Basic Metabolic Panel (non-fasting) (11/08/2020 1:35 AM EST) Glucose 123 65 - 199 mg/dL [facility] Comment:Diabetes: >=200 mg/d L plus symptoms Blood Urea Nitrogen 30(H) 10 - 20 mg/dL [facility] Creatinine 0.83 0.80 - 1.50 mg/dL [facility] Sodium 136 135 - 145 mmol/L [facility] Potassium 4.7 3.5 - 5.0 mmol/L [facility] Comment: Please note: ??Patients with WBC >100,000 may have falsely elevated Potassium levels. ??For accurate Potassium quantification in these patients send serum separator tube (gold top) for subsequent determinations. ??Contact the Clinical Chemistry Laboratory if there are any questions. Chloride 99 98 - 107 mmol/L [facility] Carbon Dioxide 27 22 - 31 mmol/L [facility] Anion Gap 10 5 - 15 mmol/L [facility] Calcium 8.6 8.5 - 10.5 mg/dL [facility] Est Glomerular Filtration Rate 100 >=60 mL/min/1. 73 m?? [facility] Comment: This patient? s [...] In Lab Radha Bolden MD CHEMISTRY ORDERABLES [facility] [place] [address] * XR Abdomen 1 view (Generic) (11/07/2020 [...] ? Electronically signed by: Usha Liriano MD, [facility] ([phone]), at 11/07/2020 11:41 AM Narrative 11/07/2020 11:41 [...] (Bezet) 410 ms MUSE SYSTEM Calculated P [place] 71 degrees MUSE SYSTEM Calculated R [place] 64 degrees MUSE SYSTEM Calculated T [place] 19 degrees MUSE SYSTEM INTERPRETATION Normal sinus rhythm Normal ECG No previous ECGs available Confirmed by Monica Staley ([id number]) on 11/06/2020 1:52:38 PM MUSE SYSTEM 11/06/2020 1:04 PM EST 11/06/2020 1:52 PM EST Radha Bolden MD ECG ORDERABLES MUSE SYSTEM * (ABNORMAL) Differential, Automated (11/06/2020 4:40 AM EST) Pathologist [facility] Neutrophil % 77.4 % [facility] Neutrophil Absolute 8.71(H) 1.70 - 6.10 x10(3)/mc L [facility] Lymph % 11.8 % [facility] Lymphocytes Abs 1.3 0.9 - 3.2 x10(3)/mc L [facility] Monocyte % 8.8 % [facility] Monocyte Abs 1.0(H) 0.3 - 0.9 x10(3)/mc L [facility] Eos % 1.3 % [facility] Eosinophils Abs 0.2 0.0 - 0.4 x10(3)/mc L [facility] Basophil % 0.3 % [facility] Baso Absolute 0.0 0.0 - 0.1 x10(3)/ L [facility] Immature Gran % 0.40 % [facility] Comment: Immature granulocytes(IG's)percentage and absolute count will include metamyelocytes, myelocytes, and promyelocytes. Blood smears from CBCs yielding IG's will be scanned manually for concordance. If this scan disagrees with the automated IG or if promyelocytes are noted, a manual differential will be performed. Immature Gran Absolute 0.05(H) 0.00 - 0.04 x10(3)/ L [facility] Blood specimen (specimen) 11/06/2020 4:40 AM EST 11/06/2020 4:45 AM EST Narrative Resulting Agency Comment Spec In Lab Norberto Gonzalez MD HEMATOLOGY ORDERABLE S Performing Organization Address City/State/[facility] Co de Phone Number [facility] [place] [address] * (ABNORMAL) Hemogram (11/06/2020 4:40 AM EST) White Blood Cell 11.3(H) 4.0 - 9.5 x10(3)/ L [facility] Red Blood Cell 3.25(L) 4.58 - 5.54 x10(6)/ L [facility] Hemoglobin 10.0(L) 13.7 - 16.5 gm/dL [facility] Hematocrit 30.2(L) 40.5 - 48.5 % [facility] Mean Cell Volume 92.9 82.9 - 93.1 fL [facility] Mean Cell Hemoglobin 30.8 27.5 - 32.1 pg [facility] Mean Cell Hemoglobin Concentration 33.1 32.0 - 35.7 gm/dL [facility] Platelet 255 145 - 357 x10(3)/ L [facility] RDW Standard Deviation 41.5 36.0 - 45.0 fL [facility] RDW coefficient of variation 12.1 11.4 - 13.8 % [facility] Mean Platelet Volume 10.5 7.6 - 12.9 fL [facility] NRBC% auto 0.0 % [facility] NRBC Absolute 0.000 0.000 - 0.000 x10(3)/mc L [facility] Blood specimen (specimen) 11/06/2020 4:40 AM EST 11/06/2020 4:45 AM EST Narrative Resulting Agency Comment Spec In Lab Norberto Gonzalez MD HEMATOLOGY ORDERABLE S Performing Organization Address City/[facility]/ZIP Co de Phone Number [facility] [place] [address] * Phosphorus (11/06/2020 4:40 AM EST) Phosphorus 3.9 2.5 - 4.5 mg/dL [facility] Blood specimen (specimen) 11/06/2020 4:40 AM EST 11/06/2020 4:45 AM EST Narrative Resulting Agency Comment Spec In Lab Radha Bolden MD CHEMISTRY ORDERABLES Performing Organization Address City/[facility]/ZIP Co de Phone Number [facility] [place] [address] * Magnesium (11/06/2020 4:40 AM EST) Magnesium 0.86 0.69 - 1.07 mmol/L [facility] Blood specimen (specimen) 11/06/2020 4:40 AM EST 11/06/2020 4:45 AM EST Narrative Resulting Agency Comment Spec In Lab Radha Bolden MD CHEMISTRY ORDERABLES Performing Organization Address City/[facility]/ZIP Co de Phone Number [facility] [place] [address] * (ABNORMAL) Basic Metabolic Panel (non-fasting) (11/06/2020 4:40 AM EST) Glucose 106 65 - 199 mg/dL [facility] Comment:Diabetes: >=200 mg/d L plus symptoms Blood Urea Nitrogen 25(H) 10 - 20 mg/dL [facility] Creatinine 0.75(L) 0.80 - 1.50 mg/dL [facility] Sodium 134(L) 135 - 145 mmol/L [facility] Potassium 4.6 3.5 - 5.0 mmol/L [facility] Comment: Please note: ??Patients with WBC >100,000 may have falsely elevated Potassium levels. ??For accurate Potassium quantification in these patients send serum separator tube (gold top) for subsequent determinations. ??Contact the Clinical Chemistry Laboratory if there are any questions. Chloride 101 98 - 107 mmol/L [facility] Carbon Dioxide 25 22 - 31 mmol/L [facility] Anion Gap 8 5 - 15 mmol/L [facility] Calcium 8.2(L) 8.5 - 10.5 mg/dL [facility] Est Glomerular Filtration Rate 105 >=60 mL/min/1. 73 m?? [facility] Comment: This patient? s [...] In Lab Radha Bolden MD CHEMISTRY ORDERABLES [facility] [place] [address] * XR Chest One View (11/05/2020 11:54 [...] please contact the number below. Robyn Baker AUTHORIZATION NURSE IMG DX ORDERABLES * (ABNORMAL) Differential, Automated (11/05/2020 4:12 AM EST) Neutrophil % 72.8 % [facility] Neutrophil Absolute 6.97(H) 1.70 - 6.10 x10(3)/mc L [facility] Lymph % 14.7 % [facility] Lymphocytes Abs 1.4 0.9 - 3.2 x10(3)/mc L [facility] Monocyte % 9.8 % [facility] Monocyte Abs 0.9 0.3 - 0.9 x10(3)/mc L [facility] Eos % 1.9 % [facility] Eosinophils Abs 0.2 0.0 - 0.4 x10(3)/mc L [facility] Basophil % 0.2 % [facility] Baso Absolute 0.0 0.0 - 0.1 x10(3)/mc L [facility] Immature Gran % 0.60 % [facility] Comment: Immature granulocytes(IG's)percentage and absolute count will include metamyelocytes, myelocytes, and promyelocytes. Blood smears from CBCs yielding IG's will be scanned manually for concordance. If this scan disagrees with the automated IG or if promyelocytes are noted, a manual differential will be performed. Immature Gran Absolute 0.06(H) 0.00 - 0.04 x10(3)/mc L [facility] Blood specimen (specimen) 11/05/2020 4:12 AM EST 11/05/2020 4:18 AM EST Narrative Resulting Agency Comment Spec In Lab Noble Rodriguez MD HEMATOLOGY ORDERABLE S Performing Organization Address City/State/[facility] Co de Phone Number [facility] [place] [address] * (ABNORMAL) Hemogram (11/05/2020 4:12 AM EST) White Blood Cell 9.6(H) 4.0 - 9.5 x10(3)/ L [facility] Red Blood Cell 3.41(L) 4.58 - 5.54 x10(6)/[facility] Hemoglobin 10.5(L) 13.7 - 16.5 gm/dL [facility] Hematocrit 30.9(L) 40.5 - 48.5 % [facility] Mean Cell Volume 90.6 82.9 - 93.1 [facility] Mean Cell Hemoglobin 30.8 27.5 - 32.1 pg [facility] Mean Cell Hemoglobin Concentration 34.0 32.0 - 35.7 gm/dL [facility] Platelet 262 145 - 357 x10(3)/[facility] RDW Standard Deviation 40.6 36.0 - 45.0 [facility] RDW coefficient of variation 12.4 11.4 - 13.8 % [facility] Mean Platelet Volume 10.5 7.6 - 12.9 [facility] NRBC% auto 0.0 % [facility] NRBC Absolute 0.000 0.000 - 0.000 x10(3)/ L [facility] Blood specimen (specimen) 11/05/2020 4:12 AM EST 11/05/2020 4:18 AM EST Narrative Resulting Agency Comment Spec In Lab Noble Rodriguez MD HEMATOLOGY ORDERABLE S Performing Organization Address City/[facility]/ZIP Co de Phone Number [facility] [place] [address] * Phosphorus (11/05/2020 4:12 AM EST) Phosphorus 3.1 2.5 - 4.5 mg/dL [facility] Blood specimen (specimen) 11/05/2020 4:12 AM EST 11/05/2020 4:18 AM EST Narrative Resulting Agency Comment Spec In Lab Radha Bolden MD CHEMISTRY ORDERABLES Performing Organization Address [facility] Co de Phone Number [facility] [place] [address] * Magnesium (11/05/2020 4:12 AM EST) Magnesium 0.76 0.69 - 1.07 mmol/L [facility] Blood specimen (specimen) 11/05/2020 4:12 AM EST 11/05/2020 4:18 AM EST Narrative Resulting Agency Comment Spec In Lab Radha Bolden MD CHEMISTRY ORDERABLES Performing Organization Address [facility] Co de Phone Number [facility] [place] [address] * (ABNORMAL) Basic Metabolic Panel (non-fasting) (11/05/2020 4:12 AM EST) Glucose 102 65 - 199 mg/dL [facility] Comment:Diabetes: >=200 mg/d L plus symptoms Blood Urea Nitrogen 18 10 - 20 mg/dL [facility] Creatinine 0.75(L) 0.80 - 1.50 mg/dL [facility] Sodium 134(L) 135 - 145 mmol/L [facility] Potassium 4.3 3.5 - 5.0 mmol/L [facility] Comment: Please note: ??Patients with WBC >100,000 may have falsely elevated Potassium levels. ??For accurate Potassium quantification in these patients send serum separator tube (gold top) for subsequent determinations. ??Contact the Clinical Chemistry Laboratory if there are any questions. Chloride 102 98 - 107 mmol/L [facility] Carbon Dioxide 23 22 - 31 mmol/L [facility] Anion Gap 9 5 - 15 mmol/L [facility] Calcium 8.2(L) 8.5 - 10.5 mg/dL [facility] Est Glomerular Filtration Rate 105 >=60 mL/min/1. 73 m?? [facility] Comment: This patient? s [...] In Lab Radha Bolden MD CHEMISTRY ORDERABLES [facility] [place] [address] * SCAN DOC: IMPLANTABLE DEVICES (11/05/2020 12:00 AM EST) Narrative 11/05/2020 12:00 AM EST Ordered by an unspecified provider. Scanning Provider MEDIA MGR SCAN EXT O RDR/RSLT * Differential, Automated (11/04/2020 2:30 AM EST) Neutrophil % 72.7 % [facility] Neutrophil Absolute 5.18 1.70 - 6.10 x10(3)/[facility] Lymph % 13.0 % [facility] Lymphocytes Abs 0.9 0.9 - 3.2 x10(3)/[facility] Monocyte % 10.2 % [facility] Monocyte Abs 0.7 0.3 - 0.9 x10(3)/[facility] Eos % 3.4 % [facility] Eosinophils Abs 0.2 0.0 - 0.4 x10(3)/[facility] Basophil % 0.3 % [facility] Baso Absolute 0.0 0.0 - 0.1 x10(3)/[facility] Immature Gran % 0.40 % [facility] Comment: Immature granulocytes(IG's)percentage and absolute count will include metamyelocytes, myelocytes, and promyelocytes. Blood smears from CBCs yielding IG's will be scanned manually for concordance. If this scan disagrees with the automated IG or if promyelocytes are noted, a manual differential will be performed. Immature Gran Absolute 0.03 0.00 - 0.04 x10(3)/[facility] Blood specimen (specimen) 11/04/2020 2:30 AM EST 11/04/2020 2:37 AM EST Narrative Resulting Agency Comment Spec In Lab Noble Rodriguez MD HEMATOLOGY ORDERABLE S [facility] [place] [address] * (ABNORMAL) Hemogram (11/04/2020 2:30 AM EST) White Blood Cell 7.1 4.0 - 9.5 x10(3)/mc L [facility] Red Blood Cell 3.37(L) 4.58 - 5.54 x10(6)/ L [facility] Hemoglobin 10.2(L) 13.7 - 16.5 gm/dL [facility] Hematocrit 30.5(L) 40.5 - 48.5 % [facility] Mean Cell Volume 90.5 82.9 - 93.1 fL [facility] Mean Cell Hemoglobin 30.3 27.5 - 32.1 pg [facility] Mean Cell Hemoglobin Concentration 33.4 32.0 - 35.7 gm/dL [facility] Platelet 234 145 - 357 x10(3)/mc L [facility] RDW Standard Deviation 40.3 36.0 - 45.0 fL [facility] RDW coefficient of variation 12.1 11.4 - 13.8 % [facility] Mean Platelet Volume 10.6 7.6 - 12.9 fL [facility] NRBC% auto 0.0 % [facility] NRBC Absolute 0.000 0.000 - 0.000 x10(3)/mc L [facility] Blood specimen (specimen) 11/04/2020 2:30 AM EST 11/04/2020 2:37 AM EST Narrative Resulting Agency Comment Spec In Lab Noble Rodriguez MD HEMATOLOGY ORDERABLE S Performing Organization Address City/[facility] Co de Phone Number [facility] [place] [address] * Phosphorus (11/04/2020 2:30 AM EST) Phosphorus 2.7 2.5 - 4.5 mg/dL [facility] Blood specimen (specimen) 11/04/2020 2:30 AM EST 11/04/2020 2:37 AM EST Narrative Resulting Agency Comment Spec In Lab Radha Bolden MD CHEMISTRY ORDERABLES Performing Organization Address [facility] Co de Phone Number [facility] [place] [address] * Magnesium (11/04/2020 2:30 AM EST) Magnesium 0.78 0.69 - 1.07 mmol/L [facility] Blood specimen (specimen) 11/04/2020 2:30 AM EST 11/04/2020 2:37 AM EST Narrative Resulting Agency Comment Spec In Lab Radha Bolden MD CHEMISTRY ORDERABLES [facility] [place] [address] * (ABNORMAL) Basic Metabolic Panel (non-fasting) (11/04/2020 2:30 AM EST) Glucose 137 65 - 199 mg/dL [facility] Comment:Diabetes: >=200 mg/d L plus symptoms Blood Urea Nitrogen 20 10 - 20 mg/dL [facility] Creatinine 0.72(L) 0.80 - 1.50 mg/dL [facility] Sodium 137 135 - 145 mmol/L [facility] Potassium 4.0 3.5 - 5.0 mmol/L [facility] Comment: Please note: ??Patients with WBC >100,000 may have falsely elevated Potassium levels. ??For accurate Potassium quantification in these patients send serum separator tube (gold top) for subsequent determinations. ??Contact the Clinical Chemistry Laboratory if there are any questions. Chloride 104 98 - 107 mmol/L [facility] Carbon Dioxide 25 22 - 31 mmol/L [facility] Anion Gap 8 5 - 15 mmol/L [facility] Calcium 8.1(L) 8.5 - 10.5 mg/dL [facility] Est Glomerular Filtration Rate 107 >=60 mL/min/1. 73 m?? [facility] Comment: This patient? s [...] Bolden MD CHEMISTRY ORDERABLES Performing Organization Address [facility] de Phone Number [facility] [place] [address] * C. Difficile Screen (11/04/2020 12:42 AM EST) C Diff Interp Negative Negative [place] [facility] Comment: Ag/Tox Neg C. diff?? [...] - GENER AL ORDERABLES Performing Organization Address [facility] de Phone Number [facility] [place] [address] * XR Abdomen 1 view (Generic) (11/03/2020 [...] Robyn Baker APRN IMG DX ORDERABLES * Place PICC Line: Contact Vascular Access Page [phone] Extremity to exclude: No restrictions; Is PICC [...] to the planned procedure. Hand Hygiene: The securities consultant did perform hand hygiene prior to line insertion. Catheter type: PICC Lot number: [id number] Procedure Technique: Skin was prepped with chlorhexidine. [...] signed by: Nallely Donato MD, [facility] ([phone]), at 11/03/2020 12:18 PM Narrative 11/03/2020 12:18 [...] signed by: Nallely Donato MD, [facility]([phone]), at 11/03/2020 12:18 PM Robyn Baker AUTHORIZATION NURSE IMG FLUORO ORDERAB LES * Differential, Automated (11/03/2020 3:15 AM EST) Neutrophil % 70.1 % [facility] Neutrophil Absolute 4.87 1.70 - 6.10 x10(3)/[facility] Lymph % 14.6 % [facility] Lymphocytes Abs 1.0 0.9 - 3.2 x10(3)/[facility] Monocyte % 10.5 % [facility] Monocyte Abs 0.7 0.3 - 0.9 x10(3)/[facility] Eos % 3.9 % [facility] Eosinophils Abs 0.3 0.0 - 0.4 x10(3)/[facility] Basophil % 0.3 % [facility] Baso Absolute 0.0 0.0 - 0.1 x10(3)/[facility] Immature Gran % 0.60 % [facility] Comment: Immature granulocytes(IG's)percentage and absolute count will include metamyelocytes, myelocytes, and promyelocytes. Blood smears from CBCs yielding IG's will be scanned manually for concordance. If this scan disagrees with the automated IG or if promyelocytes are noted, a manual differential will be performed. Immature Gran Absolute 0.04 0.00 - 0.04 x10(3)/[facility] Blood specimen (specimen) 11/03/2020 3:15 AM EST 11/03/2020 3:20 AM EST Narrative Resulting Agency Comment Spec In Lab Noble Rodriguez MD HEMATOLOGY ORDERABLE S Performing Organization Address City/[facility]/ZIP Co de Phone Number [facility] [place] [address] * (ABNORMAL) Hemogram (11/03/2020 3:15 AM EST) White Blood Cell 6.9 4.0 - 9.5 x10(3)/mc L [facility] Red Blood Cell 3.61(L) 4.58 - 5.54 x10(6)/mc L [facility] Hemoglobin 11.1(L) 13.7 - 16.5 gm/dL [facility] Hematocrit 32.1(L) 40.5 - 48.5 % [facility] Mean Cell Volume 88.9 82.9 - 93.1 fL [facility] Mean Cell Hemoglobin 30.7 27.5 - 32.1 pg [facility] Mean Cell Hemoglobin Concentration 34.6 32.0 - 35.7 gm/dL [facility] Platelet 205 145 - 357 x10(3)/mc L [facility] RDW Standard Deviation 39.2 36.0 - 45.0 fL [facility] RDW coefficient of variation 12.0 11.4 - 13.8 % [facility] Mean Platelet Volume 10.6 7.6 - 12.9 fL [facility] NRBC% auto 0.0 % [facility] NRBC Absolute 0.000 0.000 - 0.000 x10(3)/mc L [facility] Blood specimen (specimen) 11/03/2020 3:15 AM EST 11/03/2020 3:20 AM EST Narrative Resulting Agency Comment Spec In Lab Noble Rodriguez MD HEMATOLOGY ORDERABLE S Performing Organization Address City/[facility]/ZIP Co de Phone Number [facility] [place] [address] * Phosphorus (11/03/2020 3:15 AM EST) Phosphorus 3.1 2.5 - 4.5 mg/dL [facility] Blood specimen (specimen) 11/03/2020 3:15 AM EST 11/03/2020 3:20 AM EST Narrative Resulting Agency Comment Spec In Lab Radha Bolden MD CHEMISTRY ORDERABLES Performing Organization Address [facility] Co de Phone Number [facility] [place] [address] * Magnesium (11/03/2020 3:15 AM EST) Magnesium 0.82 0.69 - 1.07 mmol/L [facility] Blood specimen (specimen) 11/03/2020 3:15 AM EST 11/03/2020 3:20 AM EST Narrative Resulting Agency Comment Spec In Lab Radha Bolden MD CHEMISTRY ORDERABLES Performing Organization Address [facility] Co de Phone Number [facility] [place] [address] * (ABNORMAL) Basic Metabolic Panel (non-fasting) (11/03/2020 3:15 AM EST) Glucose 85 65 - 199 mg/dL [facility] Comment:Diabetes: >=200 mg/d L plus symptoms Blood Urea Nitrogen 22(H) 10 - 20 mg/dL [facility] Creatinine 0.76(L) 0.80 - 1.50 mg/dL [facility] Sodium 137 135 - 145 mmol/L [facility] Potassium 4.1 3.5 - 5.0 mmol/L [facility] Comment: Please note: ??Patients with WBC >100,000 may have falsely elevated Potassium levels. ??For accurate Potassium quantification in these patients send serum separator tube (gold top) for subsequent determinations. ??Contact the Clinical Chemistry Laboratory if there are any questions. Chloride 103 98 - 107 mmol/L [facility] Carbon Dioxide 22 22 - 31 mmol/L [facility] Anion Gap 12 5 - 15 mmol/L [facility] Calcium 8.2(L) 8.5 - 10.5 mg/dL [facility] Est Glomerular Filtration Rate 104 >=60 mL/min/1. 73 m?? [facility] Comment: This patient? s [...] Bolden MD CHEMISTRY ORDERABLES Performing Organization Address City/State/[facility] Co de Phone Number [facility] [place] [address] * XR Chest One View (11/02/2020 6:10 PM EST) Anatomical Region Laterality Modality Chest N/A Digital Radiogra phy Impressions 11/02/2020 6:40 PM EST No acute cardiopulmonary abnormality. Thank you for letting us participate in the care of this patient. For questions regarding this report, please contact the number below. ? Electronically signed by: Caleb Branch MD, [facility] ([phone]), at 11/02/2020 6:40 PM Narrative 11/02/2020 6:40 [...] 3:52 AM EST) Neutrophil % 63.2 % [facility] Neutrophil Absolute 4.39 1.70 - 6.10 x10(3)/mc L [facility] Lymph % 19.4 % [facility] Lymphocytes Abs 1.4 0.9 - 3.2 x10(3)/mc L [facility] Monocyte % 13.9 % [facility] Monocyte Abs 1.0(H) 0.3 - 0.9 x10(3)/mc L [facility] Eos % 2.7 % [facility] Eosinophils Abs 0.2 0.0 - 0.4 x10(3)/[facility] Basophil % 0.4 % [facility] Baso Absolute 0.0 0.0 - 0.1 x10(3)/ L [facility] Immature Gran % 0.40 % [facility] Comment: Immature granulocytes(IG's)percentage and absolute count will include metamyelocytes, myelocytes, and promyelocytes. Blood smears from CBCs yielding IG's will be scanned manually for concordance. If this scan disagrees with the automated IG or if promyelocytes are noted, a manual differential will be performed. Immature Gran Absolute 0.03 0.00 - 0.04 x10(3)/[facility] Blood specimen (specimen) 11/02/2020 3:52 AM EST 11/02/2020 4:01 AM EST Narrative Resulting Agency Comment Spec In Lab Noble Rodriguez MD HEMATOLOGY ORDERABLE S [facility] [place] [address] * (ABNORMAL) Hemogram (11/02/2020 3:52 AM EST) White Blood Cell 7.0 4.0 - 9.5 x10(3)/ L [facility] Red Blood Cell 3.39(L) 4.58 - 5.54 x10(6)/ L [facility] Hemoglobin 10.3(L) 13.7 - 16.5 gm/dL [facility] Hematocrit 30.4(L) 40.5 - 48.5 % [facility] Mean Cell Volume 89.7 82.9 - 93.1 fL [facility] Mean Cell Hemoglobin 30.4 27.5 - 32.1 pg [facility] Mean Cell Hemoglobin Concentration 33.9 32.0 - 35.7 gm/dL [facility] Platelet 188 145 - 357 x10(3)/mc L [facility] RDW Standard Deviation 39.9 36.0 - 45.0 fL [facility] RDW coefficient of variation 12.2 11.4 - 13.8 % [facility] Mean Platelet Volume 10.6 7.6 - 12.9 fL [facility] NRBC% auto 0.0 % [facility] NRBC Absolute 0.000 0.000 - 0.000 x10(3)/mc L [facility] Blood specimen (specimen) 11/02/2020 3:52 AM EST 11/02/2020 4:01 AM EST Narrative Resulting Agency Comment Spec In Lab Noble Rodriguez MD HEMATOLOGY ORDERABLE S Performing Organization Address [facility] Co de Phone Number [facility] [place] [address] * Phosphorus (11/02/2020 3:52 AM EST) Phosphorus 4.0 2.5 - 4.5 mg/dL [facility] Blood specimen (specimen) 11/02/2020 3:52 AM EST 11/02/2020 4:01 AM EST Narrative Resulting Agency Comment Spec In Lab Radha Bolden MD CHEMISTRY ORDERABLES Performing Organization Address City/[facility] Co de Phone Number [facility] [place] [address] * Magnesium (11/02/2020 3:52 AM EST) Magnesium 0.82 0.69 - 1.07 mmol/L [facility] Blood specimen (specimen) 11/02/2020 3:52 AM EST 11/02/2020 4:01 AM EST Narrative Resulting Agency Comment Spec In Lab Radha Bolden MD CHEMISTRY ORDERABLES [facility] [place] [address] * (ABNORMAL) Basic Metabolic Panel (non-fasting) (11/02/2020 3:52 AM EST) Glucose 89 65 - 199 mg/dL [facility] Comment:Diabetes: >=200 mg/d L plus symptoms Blood Urea Nitrogen 24(H) 10 - 20 mg/dL [facility] Creatinine 0.83 0.80 - 1.50 mg/dL [facility] Sodium 136 135 - 145 mmol/L [facility] Potassium 4.4 3.5 - 5.0 mmol/L [facility] Comment: Please note: ??Patients with WBC >100,000 may have falsely elevated Potassium levels. ??For accurate Potassium quantification in these patients send serum separator tube (gold top) for subsequent determinations. ??Contact the Clinical Chemistry Laboratory if there are any questions. Chloride 103 98 - 107 mmol/L [facility] Carbon Dioxide 21(L) 22 - 31 mmol/L [facility] Anion Gap 12 5 - 15 mmol/L [facility] Calcium 8.2(L) 8.5 - 10.5 mg/dL [facility] Est Glomerular Filtration Rate 100 >=60 mL/min/1. 73 m?? [facility] Comment: This patient? s [...] In Lab Radha Bolden MD CHEMISTRY ORDERABLES [facility] [place] [address] * XR Abdomen 1 view (Generic) (11/01/2020 [...] the esophagus with distal tip outside the [id number] beyond the GE junction. Partially visualized cervical [...] of the esophagus with distal tipoutside the [id number] beyond the GE junction. Partially visualized cervicalfusion [...] RBC, Urine 12(H) 0 - 3 /HPF [facility] WBC, Urine 4(H) 0 - 3 /HPF [facility] Bacteria, Urine Few(A) None /HPF [facility] Transitional Epithelial Cells, Urine <1 <=1 /HPF [facility] Uric Acid Crystal, Urine Occasiona l(A) None /HPF [facility] Urine specimen obtained via indwelling urinary catheter (specimen) 11/01/2020 10:30 AM EST 11/01/2020 10:39 AM EST Narrative Resulting Agency Comment Spec In Lab Bhumi Corley MD URINE ORDERABLES [facility] [place] [address] * (ABNORMAL) Urinalysis with reflex Culture (11/01/2020 10:30 AM EST) Glucose, Urine Dipstick Negative Negative mg/dL [facility] Protein, Urine Dipstick 30(A) Negative mg/dL [facility] Bilirubin, Urine Dipstick Negative Negative mg/dL [facility] Comment: Clinical correlation required for positive Urine Bilirubin results as false positive may occur with some drugs and drug related products. If a false positive is suspected a serum total bilirubin should be considered if clinically indicated. Urobilinogen, Urine Dipstick Normal Normal mg/dL [facility] pH, Urn (dipstick) 6.0 5.0 - 8.0 [facility] Blood, Urine Dipstick Moderate(A) Negative mg/dL [facility] Ketone, Urine Dipstick 15(A) Negative mg/dL [facility] Nitrite, Urine Dipstick Negative Negative [facility] Leukocytes, Urine Dipstick Negative Negative [facility] Appearance, Urine Dipstick Clear Clear [facility] Specific [place] Urine Automated >=1.030(A) 1.006 - 1.030 [facility] Color, Urine Dipstick Yellow Yellow [facility] Reflex to Culture No [facility] Urine specimen obtained via indwelling urinary catheter (specimen) 11/01/2020 10:30 AM EST 11/01/2020 10:39 AM EST Narrative Resulting Agency Comment Spec In Lab Gaurav Shoemaker MD URINE ORDERABLES Performing Organization Address [facility] Co de Phone Number [facility] [place] [address] * Blood culture (11/01/2020 5:56 AM EST) Blood Culture No growth at 5 days. [facility] Blood specimen (specimen) 11/01/2020 5:56 AM EST 11/01/2020 7:38 AM EST Narrative Resulting Agency Comment Spec In Lab Gaurav Shoemaker MD MICROBIOLOGY - BLOOD ORDERABLES Performing Organization Address [facility] de Phone Number [facility] [place] [address] * (ABNORMAL) Comprehensive metabolic panel (non-fasting) (11/01/2020 5:47 AM EST) Glucose Not Perf 65 - 199 [facility] Comment: Duplicate order Diabetes: >=200 mg/dL plus symptoms Blood Urea Nitrogen Not Perf 10 - 20 [facility] Comment:Duplicate order Creatinine Not Perf 0.80 - 1.50 [facility] Comment:Duplicate order Sodium Not Perf 135 - 145 [facility] Comment:Duplicate order Potassium Not Perf 3.5 - 5.0 [facility] Comment: Duplicate order Please note: ??Patients with WBC >100,000 may have falsely elevated Potassium levels. ??For accurate Potassium quantification in these patients send serum separator tube (gold top) for subsequent determinations. ??Contact the Clinical Chemistry Laboratory if there are any questions. Chloride Not Perf 98 - 107 [facility] Comment:Duplicate order Carbon Dioxide Not Perf 22 - 31 [facility] Comment:Duplicate order Anion Gap Not Calculated 5 - 15 mmol/L [facility] Comment:Duplicate order Calcium Not Perf 8.5 - 10.5 [facility] Comment:Duplicate order Protein, Total 5.6(L) 6.1 - 8.0 gm/dL [facility] Albumin 2.8(L) 3.2 - 5.2 gm/dL [facility] Aspartate Aminotransferase 36 0 - 39 unit/L [facility] Alanine Aminotransferase 32 0 - 55 unit/L [facility] Alkaline Phosphatase 58 40 - 130 unit/L [facility] Bilirubin, Total 0.4 0.2 - 1.3 mg/dL [facility] Est Glomerular Filtration Rate Not Calculated >=60 [facility] Comment:Duplicate order Blood specimen (specimen) 11/01/2020 5:47 AM EST 11/01/2020 6:06 AM EST Narrative Resulting Agency Comment Spec In Lab Gaurav Shoemaker MD CHEMISTRY ORDERABLES [facility] [place] [id number] * Differential, Automated (11/01/2020 5:47 AM EST) Neutrophil % 67.7 % [facility] Neutrophil Absolute 4.41 1.70 - 6.10 x10(3)/[facility] Lymph % 19.1 % [facility] Lymphocytes Abs 1.2 0.9 - 3.2 x10(3)/[facility] Monocyte % 12.6 % [facility] Monocyte Abs 0.8 0.3 - 0.9 x10(3)/[facility] Eos % 0.2 % [facility] Eosinophils Abs 0.0 0.0 - 0.4 x10(3)/[facility] Basophil % 0.2 % [facility] Baso Absolute 0.0 0.0 - 0.1 x10(3)/[facility] Immature Gran % 0.20 % [facility] Comment: Immature granulocytes(IG's)percentage and absolute count will include metamyelocytes, myelocytes, and promyelocytes. Blood smears from CBCs yielding IG's will be scanned manually for concordance. If this scan disagrees with the automated IG or if promyelocytes are noted, a manual differential will be performed. Immature Gran Absolute 0.01 0.00 - 0.04 x10(3)/[facility] Blood specimen (specimen) 11/01/2020 5:47 AM EST 11/01/2020 6:04 AM EST Narrative Resulting Agency Comment Spec In Lab Bhumi Corley MD HEMATOLOGY ORDERABLE S Performing Organization Address City/State/[facility] Co de Phone Number [facility] [place] [address] * (ABNORMAL) Hemogram (11/01/2020 5:47 AM EST) White Blood Cell 6.5 4.0 - 9.5 x10(3)/mc L [facility] Red Blood Cell 3.43(L) 4.58 - 5.54 x10(6)/mc L [facility] Hemoglobin 10.6(L) 13.7 - 16.5 gm/dL [facility] Hematocrit 30.9(L) 40.5 - 48.5 % [facility] Mean Cell Volume 90.1 82.9 - 93.1 fL [facility] Mean Cell Hemoglobin 30.9 27.5 - 32.1 pg [facility] Mean Cell Hemoglobin Concentration 34.3 32.0 - 35.7 gm/dL [facility] Platelet 185 145 - 357 x10(3)/mc L [facility] RDW Standard Deviation 39.7 36.0 - 45.0 fL [facility] RDW coefficient of variation 12.2 11.4 - 13.8 % [facility] Mean Platelet Volume 10.9 7.6 - 12.9 fL [facility] NRBC% auto 0.0 % [facility] NRBC Absolute 0.000 0.000 - 0.000 x10(3)/mc L [facility] Blood specimen (specimen) 11/01/2020 5:47 AM EST 11/01/2020 6:04 AM EST Narrative Resulting Agency Comment Spec In Lab Bhumi Corley MD HEMATOLOGY ORDERABLE S [facility] [place] [address] * (ABNORMAL) Basic Metabolic Panel (non-fasting) (11/01/2020 5:47 AM EST) Glucose 92 65 - 199 mg/dL [facility] Comment:Diabetes: >=200 mg/d L plus symptoms Blood Urea Nitrogen 19 10 - 20 mg/dL [facility] Creatinine 1.13 0.80 - 1.50 mg/dL [facility] Sodium 132(L) 135 - 145 mmol/L [facility] Potassium 3.7 3.5 - 5.0 mmol/L [facility] Comment: Please note: ??Patients with WBC >100,000 may have falsely elevated Potassium levels. ??For accurate Potassium quantification in these patients send serum separator tube (gold top) for subsequent determinations. ??Contact the Clinical Chemistry Laboratory if there are any questions. Chloride 101 98 - 107 mmol/L [facility] Carbon Dioxide 21(L) 22 - 31 mmol/L [facility] Anion Gap 10 5 - 15 mmol/L [facility] Calcium 8.0(L) 8.5 - 10.5 mg/dL [facility] Est Glomerular Filtration Rate 74 >=60 mL/min/1. 73 m?? [facility] Comment: This patient? s [...] In Lab Gaurav Shoemaker MD CHEMISTRY ORDERABLES [facility] [place] [address] * (ABNORMAL) Blood culture (11/01/2020 5:47 AM EST) Blood Culture Coagulase negative Staphylococcus species detected by PCR Interpretation of the importance of skin daphne such as Coagulase Negative Staph, Viridans Strep, Corynebacteria and other Gram Positive organisms from a single Blood Culture set requires clinical correlation. (A) [facility] Gram Stain Aerobic Growth detected in aerobic bottle. Gram Positive Cocci in clusters seen (A) [facility] Organism Coagulase negative Staphylococcus species(A) [facility] Organism Gram Positive Cocci in clusters(A) [facility] Blood specimen (specimen) STRUCTURE OF RIGHT HAND / Unknown 11/01/2020 5:47 AM EST 11/01/2020 7:40 AM EST Narrative Resulting Agency Comment Spec In Lab Gaurav Shoemaker MD MICROBIOLOGY - BLOOD ORDERABLES [facility] [place] [address] * POCT Glucose (11/01/2020 5:23 AM EST) Glucose, POC 105 65 - 199 mg/dL [facility] Comment: Supplemental ranges: <140 mg/dL before meals <180 mg/dL all other times of the day Blood specimen (specimen) 11/01/2020 5:23 AM EST 11/01/2020 5:23 AM EST Gaurav Shoemaker MD POINT OF CARE TEST O RDERABLES Performing Organization Address [facility] [place] [address] * Phosphorus (11/01/2020 3:55 AM EST) Phosphorus 2.9 2.5 - 4.5 mg/dL [facility] Blood specimen (specimen) 11/01/2020 3:55 AM EST 11/01/2020 4:23 AM EST Narrative Resulting Agency Comment Spec In Lab Radha Bolden MD CHEMISTRY ORDERABLES Performing Organization Address [facility] [place] [address] * Magnesium (11/01/2020 3:55 AM EST) Magnesium 0.79 0.69 - 1.07 mmol/L [facility] Blood specimen (specimen) 11/01/2020 3:55 AM EST 11/01/2020 4:23 AM EST Narrative Resulting Agency Comment Spec In Lab Radha Bolden MD CHEMISTRY ORDERABLES Performing Organization Address [facility] de Phone Number [facility] [place] [address] * XR Fluoro Barium Swallow (Video Swallow [...] signed by: Lawrence Molina MD, [facility] ([phone]), at 10/31/2020 4:12 PM Narrative 10/31/2020 4:12 [...] Soft solid trigger was post piriform sinuses. [place] trigger is post piriform sinuses. With nectar [...] Soft solid trigger was post piriform sinuses. [place] trigger is post piriform sinuses. With nectar [...] signed by: Lawrence Molina MD, [facility]([phone]), at 10/31/2020 4:12 PM Gaurav Shoemaker MD IMG FLUORO ORDERABLE S * Differential, Automated (10/31/2020 12:42 AM EST) Neutrophil % 68.8 % [facility] Neutrophil Absolute 5.30 1.70 - 6.10 x10(3)/[facility] LABORATORY Lymph % 18.7 % [facility] Lymphocytes Abs 1.4 0.9 - 3.2 x10(3)/[facility] LABORATORY Monocyte % 9.9 % [facility] Monocyte Abs 0.8 0.3 - 0.9 x10(3)/[facility] LABORATORY Eos % 2.0 % [facility] Eosinophils Abs 0.2 0.0 - 0.4 x10(3)/[facility] LABORATORY Basophil % 0.3 % [facility] Baso Absolute 0.0 0.0 - 0.1 x10(3)/[facility] LABORATORY Immature Gran % 0.30 % [facility] Comment: Immature granulocytes(IG's)percentage and absolute count will include metamyelocytes, myelocytes, and promyelocytes. Blood smears from CBCs yielding IG's will be scanned manually for concordance. If this scan disagrees with the automated IG or if promyelocytes are noted, a manual differential will be performed. Immature Gran Absolute 0.02 0.00 - 0.04 x10(3)/[facility] LABORATORY Blood specimen (specimen) 10/31/2020 12:42 AM EST 10/31/2020 1:02 AM EST Narrative Resulting Agency Comment Spec In Lab Alex Oropeza MD HEMATOLOGY ORDERABLE S [facility] [place] [address] * (ABNORMAL) Hemogram (10/31/2020 12:42 AM EST) White Blood Cell 7.7 4.0 - 9.5 x10(3)/mc L [facility] Red Blood Cell 3.00(L) 4.58 - 5.54 x10(6)/mc L [facility] Hemoglobin 9.4(L) 13.7 - 16.5 gm/dL [facility] Hematocrit 27.0(L) 40.5 - 48.5 % [facility] Mean Cell Volume 90.0 82.9 - 93.1 fL [facility] Mean Cell Hemoglobin 31.3 27.5 - 32.1 pg [facility] Mean Cell Hemoglobin Concentration 34.8 32.0 - 35.7 gm/dL [facility] Platelet 138(L) 145 - 357 x10(3)/mc L [facility] RDW Standard Deviation 39.6 36.0 - 45.0 [facility] LAB[facility]ATORY RDW coefficient of variation 12.1 11.4 - 13.8 % [facility] Mean Platelet Volume 11.7 7.6 - 12.9 fL [facility] NRBC% auto 0.0 % [facility] NRBC Absolute 0.000 0.000 - 0.000 x10(3)/mc L [facility] Blood specimen (specimen) 10/31/2020 12:42 AM EST 10/31/2020 1:02 AM EST Narrative Resulting Agency Comment Spec In Lab Alex Oropeza MD HEMATOLOGY ORDERABLE S [facility] [place] [address] * (ABNORMAL) Basic Metabolic Panel (non-fasting) (10/31/2020 12:42 AM EST) Glucose 97 65 - 199 mg/dL [facility] Comment:Diabetes: >=200 mg/d L plus symptoms Blood Urea Nitrogen 15 10 - 20 mg/dL [facility] Creatinine 0.78(L) 0.80 - 1.50 mg/dL [facility] Sodium 135 135 - 145 mmol/L [facility] Potassium 3.8 3.5 - 5.0 mmol/L [facility] Comment: Please note: ??Patients with WBC >100,000 may have falsely elevated Potassium levels. ??For accurate Potassium quantification in these patients send serum separator tube (gold top) for subsequent determinations. ??Contact the Clinical Chemistry Laboratory if there are any questions. Chloride 105 98 - 107 mmol/L [facility] Carbon Dioxide 24 22 - 31 mmol/L [facility] Anion Gap 6 5 - 15 mmol/L [facility] Calcium 7.5(L) 8.5 - 10.5 mg/dL [facility] Est Glomerular Filtration Rate 103 >=60 mL/min/1. 73 m?? [facility] Comment: This patient? s [...] Bolden MD CHEMISTRY ORDERABLES Performing Organization Address [facility] Co de Phone Number [facility] [place] [address] * (ABNORMAL) Phosphorus (10/31/2020 12:42 AM EST) Phosphorus 2.2(L) 2.5 - 4.5 mg/dL [facility] Blood specimen (specimen) 10/31/2020 12:42 AM EST 10/31/2020 1:02 AM EST Narrative Resulting Agency Comment Spec In Lab Radah Bolden MD CHEMISTRY ORDERABLES Performing Organization Address [facility] Phone Number [facility] [place] [address] * Magnesium (10/31/2020 12:42 AM EST) Magnesium 0.72 0.69 - 1.07 mmol/L [facility] Blood specimen (specimen) 10/31/2020 12:42 AM EST 10/31/2020 1:02 AM EST Narrative Resulting Agency Comment Spec In Lab Radha Bolden MD CHEMISTRY ORDERABLES Performing Organization Address [facility] Number [facility] [place] [address] * POCT Glucose (10/30/2020 7:40 PM EST) Glucose, POC 95 65 - 199 mg/dL [facility] Comment: Supplemental ranges: <140 mg/dL before meals <180 mg/dL all other times of the day Blood specimen (specimen) 10/30/2020 7:40 PM EST 10/30/2020 7:40 PM EST Gaurav Shoemaker MD POINT OF CARE TEST O RDERABLES Performing Organization Address [facility] Co de Phone Number [facility] [place] [address] * Electrolytes panel (10/30/2020 6:15 PM EST) Sodium 135 135 - 145 mmol/L [facility] Potassium 4.1 3.5 - 5.0 mmol/L [facility] Comment: Please note: ??Patients with WBC >100,000 may have falsely elevated Potassium levels. ??For accurate Potassium quantification in these patients send serum separator tube (gold top) for subsequent determinations. ??Contact the Clinical Chemistry Laboratory if there are any questions. Chloride 104 98 - 107 mmol/L [facility] Carbon Dioxide 24 22 - 31 mmol/L [facility] Anion Gap 7 5 - 15 mmol/L [facility] Blood specimen (specimen) 10/30/2020 6:15 PM EST 10/30/2020 6:24 PM EST Narrative Resulting Agency Comment Spec In Lab Gaurav Shoemaker MD CHEMISTRY ORDERABLES Performing Organization Address [facility] Co de Phone Number [facility] [place] [address] * Osmolality (10/30/2020 4:55 PM EST) Osmolality 281 275 - 295 mOsm/kg [facility] Blood specimen (specimen) 10/30/2020 4:55 PM EST 10/30/2020 5:32 PM EST Narrative Resulting Agency Comment Spec In Lab Gaurav Shoemaker MD CHEMISTRY ORDERABLES Performing Organization Address [facility] Co de Phone Number [facility] [place] [address] * Osmolality, urine, random (10/30/2020 4:36 PM EST) Osmolality, Urine 991 50 - 1,200 mOsm/kg [facility] Urine specimen (specimen) 10/30/2020 4:36 PM EST 10/30/2020 5:49 PM EST Narrative Resulting Agency Comment Spec In Lab Gaurav Shoemaker MD URINE ORDERABLES Performing Organization Address [facility] Co de Phone Number [facility] [place] [address] * Electrolytes, urine, random (10/30/2020 4:36 PM EST) Sodium, Urine 60 mmol/L [facility] Potassium, Urine 43 mmol/L [facility] Chloride, Urine 48 mmol/L [facility] Urine specimen (specimen) 10/30/2020 4:36 PM EST 10/30/2020 5:49 PM EST Narrative Resulting Agency Comment Spec In Lab Gaurav Shoemaker MD URINE ORDERABLES Performing Organization Address [facility] de Phone Number [facility] [place] [address] * XR Chest One View (10/30/2020 4:35 PM EST) Anatomical Region Laterality Modality Chest N/A Digital Radiogra phy Impressions 10/30/2020 5:22 PM EST 1. ??No acute cardiopulmonary process. 2. ??Interval resolution of pulmonary vascular congestion. 3. ??No pleural effusions. Thank you for letting us participate in the care of this patient. For questions regarding this report, please contact the number below. ? Narrative 10/30/2020 5:22 PM EST EXAMINATION: XR [...] EST) pH, Arterial 7.43 7.35 - 7.45 [facility] PCO2, Arterial 36 35 - 45 mmHg [facility] PO2, Arterial 64(L) 85 - 104 mmHg [facility] Bicarbonate, Arterial 23.4 20.0 - 26.0 mmol/L [facility] Base Excess, Arterial -0.8 -3.0 - 3.0 mmol/L [facility] Hgb Blood Gas 10.8(L) 13.7 - 16.5 gm/dL [facility] Oxyhemoglobin, Arterial 91.0(L) 94.0 - 97.0 % [facility] Carboxyhemoglob in, Arterial 0.3 % [facility] Comment: Nonsmokers: 0.5-1.5% COHB Smokers: Variable, but usually less than 10% Toxic: 20-30% COHB Lethal: Greater than 60% COHB Methemoglobin, Arterial 0.6 <=1.5 % [facility] Na Whole Blood 132(L) 135 - 145 mmol/L [facility] K Whole Blood 3.5 3.5 - 5.0 mmol/L [facility] Comment: Please note: Patients with WBC >100,000 may have falsely elevated Potassium levels. Contact the Clinical Chemistry Laboratory if there are any questions. ICa Whole Blood 1.11(L) 1.15 - 1.33 mmol/L [facility] Comment: Note: ??Total bilirubin higher than 20 mg/dL may lead to falsely low ionized calcium. CL Whole Blood 103 98 - 107 mmol/L [facility] Gluc Whole Bld 121 65 - 199 mg/dL [facility] Comment:Diabetes: >=200 mg/d L plus symptoms. Lactate WB 0.8 0.5 - 2.2 mmol/L [facility] FIO2 Art 21 % [facility] PF Ratio Art 305 [facility] Blood specimen (specimen) 10/30/2020 3:19 PM EST 10/30/2020 3:19 PM EST Gaurav Shoemaker MD POINT OF CARE TEST O RDERABLES [facility] [place] [address] * (ABNORMAL) CK (10/30/2020 1:15 PM EST) Creatine Kinase 333(H) 0 - 200 unit/L [facility] Blood specimen (specimen) 10/30/2020 1:15 PM EST 10/30/2020 1:28 PM EST Narrative Resulting Agency Comment Spec In Lab Gaurav Shoemaker MD CHEMISTRY ORDERABLES [facility] [place] [address] * (ABNORMAL) Basic Metabolic Panel (non-fasting) (10/30/2020 1:15 PM EST) Glucose 118 65 - 199 mg/dL [facility] Comment:Diabetes: >=200 mg/d L plus symptoms Blood Urea Nitrogen 17 10 - 20 mg/dL [facility] Creatinine 0.81 0.80 - 1.50 mg/dL [facility] Sodium 133(L) 135 - 145 mmol/L [facility] Potassium 3.7 3.5 - 5.0 mmol/L [facility] Comment: Please note: ??Patients with WBC >100,000 may have falsely elevated Potassium levels. ??For accurate Potassium quantification in these patients send serum separator tube (gold top) for subsequent determinations. ??Contact the Clinical Chemistry Laboratory if there are any questions. Chloride 103 98 - 107 mmol/L [facility] Carbon Dioxide 24 22 - 31 mmol/L [facility] Anion Gap 6 5 - 15 mmol/L [facility] Calcium 7.0(L) 8.5 - 10.5 mg/dL [facility] Est Glomerular Filtration Rate 101 >=60 mL/min/1. 73 m?? [facility] Comment: This patient? s [...] In Lab Gaurav Shoemaker MD CHEMISTRY ORDERABLES [facility] [place] [address] * (ABNORMAL) Differential, Automated (10/30/2020 1:05 AM EST) Neutrophil % 74.4 % [facility] Neutrophil Absolute 7.02(H) 1.70 - 6.10 x10(3)/[facility] LABORATORY Lymph % 13.4 % [facility] Lymphocytes Abs 1.3 0.9 - 3.2 x10(3)/[facility] LABORATORY Monocyte % 11.5 % [facility] Monocyte Abs 1.1(H) 0.3 - 0.9 x10(3)/[facility] LABORATORY Eos % 0.2 % [facility] Eosinophils Abs 0.0 0.0 - 0.4 x10(3)/[facility] LABORATORY Basophil % 0.2 % [facility] Baso Absolute 0.0 0.0 - 0.1 x10(3)/[facility] LABORATORY Immature Gran % 0.30 % [facility] Comment: Immature granulocytes(IG's)percentage and absolute count will include metamyelocytes, myelocytes, and promyelocytes. Blood smears from CBCs yielding IG's will be scanned manually for concordance. If this scan disagrees with the automated IG or if promyelocytes are noted, a manual differential will be performed. Immature Gran Absolute 0.03 0.00 - 0.04 x10(3)/ L [facility] Blood specimen (specimen) 10/30/2020 1:05 AM EST 10/30/2020 1:24 AM EST Narrative Resulting Agency Comment Spec In Lab Alex Oropeza MD HEMATOLOGY ORDERABLE S Performing Organization Address City/[facility]/ZIP Co de Phone Number [facility] [place] [address] * (ABNORMAL) Hemogram (10/30/2020 1:05 AM EST) White Blood Cell 9.4 4.0 - 9.5 x10(3)/mc L [facility] Red Blood Cell 3.38(L) 4.58 - 5.54 x10(6)/mc L [facility] Hemoglobin 10.3(L) 13.7 - 16.5 gm/dL [facility] Hematocrit 30.2(L) 40.5 - 48.5 % [facility] Mean Cell Volume 89.3 82.9 - 93.1 fL [facility] Mean Cell Hemoglobin 30.5 27.5 - 32.1 pg [facility] Mean Cell Hemoglobin Concentration 34.1 32.0 - 35.7 gm/dL [facility] Platelet 159 145 - 357 x10(3)/mc L [facility] RDW Standard Deviation 39.8 36.0 - 45.0 [facility] LABORATORY RDW coefficient of variation 12.2 11.4 - 13.8 % [facility] Mean Platelet Volume 11.6 7.6 - 12.9 fL [facility] NRBC% auto 0.0 % [facility] NRBC Absolute 0.000 0.000 - 0.000 x10(3)/ L [facility] Blood specimen (specimen) 10/30/2020 1:05 AM EST 10/30/2020 1:24 AM EST Narrative Resulting Agency Comment Spec In Lab Alex Oropeza MD HEMATOLOGY ORDERABLE S [facility] [place] [address] * (ABNORMAL) Basic Metabolic Panel (non-fasting) (10/30/2020 1:05 AM EST) Glucose 108 65 - 199 mg/dL [facility] Comment:Diabetes: >=200 mg/d L plus symptoms Blood Urea Nitrogen 15 10 - 20 mg/dL [facility] Creatinine 0.87 0.80 - 1.50 mg/dL [facility] Sodium 136 135 - 145 mmol/L [facility] Potassium 3.7 3.5 - 5.0 mmol/L [facility] Comment: Please note: ??Patients with WBC >100,000 may have falsely elevated Potassium levels. ??For accurate Potassium quantification in these patients send serum separator tube (gold top) for subsequent determinations. ??Contact the Clinical Chemistry Laboratory if there are any questions. Chloride 105 98 - 107 mmol/L [facility] Carbon Dioxide 24 22 - 31 mmol/L [facility] Anion Gap 7 5 - 15 mmol/L [facility] Calcium 7.5(L) 8.5 - 10.5 mg/dL [facility] Est Glomerular Filtration Rate 99 >=60 mL/min/1. 73 m?? [facility] Comment: This patient? s [...] In Lab Radha Bolden MD CHEMISTRY ORDERABLES [facility] [place] [address] * (ABNORMAL) Phosphorus (10/30/2020 1:05 AM EST) Phosphorus 1.8(L) 2.5 - 4.5 mg/dL [facility] Blood specimen (specimen) 10/30/2020 1:05 AM EST 10/30/2020 1:24 AM EST Narrative Resulting Agency Comment Spec In Lab Radha Bolden MD CHEMISTRY ORDERABLES [facility] [place] [address] * Magnesium (10/30/2020 1:05 AM EST) Magnesium 0.77 0.69 - 1.07 mmol/L [facility] Blood specimen (specimen) 10/30/2020 1:05 AM EST 10/30/2020 1:24 AM EST Narrative Resulting Agency Comment Spec In Lab Radha Bolden MD CHEMISTRY ORDERABLES Performing Organization Address City/[facility]/ZIP Co de Phone Number [facility] [place] [address] * (ABNORMAL) Phosphorus (10/29/2020 12:18 PM EST) Phosphorus 1.9(L) 2.5 - 4.5 mg/dL [facility] Blood specimen (specimen) 10/29/2020 12:18 PM EST 10/29/2020 12:36 PM EST Narrative Resulting Agency Comment Spec In Lab Adrienne Medellin MD CHEMISTRY ORDERABLES Performing Organization Address City/[facility]/ZIP Co de Phone Number [facility] [place] [address] * (ABNORMAL) Urinalysis Microscopic Exam (10/29/2020 12:03 PM EST) RBC, Urine 3 0 - 3 /HPF [facility] WBC, Urine 6(H) 0 - 3 /HPF [facility] Bacteria, Urine Rare(A) None /HPF [facility] Squamous Epithelial Cells Raw Data, Urine 4 <=4 /HPF [facility] Renal Epithelial Cells, Urine 1(H) <=0 /HPF [facility] Comment: Interpret results with caution, microscopic results are from suboptimal specimen volume Hyaline Casts, Urine 4(H) 0 - 2 /LPF [facility] Urine specimen obtained via indwelling urinary catheter (specimen) 10/29/2020 12:03 PM EST 10/29/2020 12:37 PM EST Narrative Resulting Agency Comment Spec In Lab Neiad Omalley MD URINE ORDERABLES [facility] [place] [address] * (ABNORMAL) Urinalysis with reflex Culture (10/29/2020 12:03 PM EST) Glucose, Urine Dipstick Negative Negative mg/dL [facility] Protein, Urine Dipstick Trace(A) Negative mg/dL [facility] Bilirubin, Urine Dipstick Negative Negative mg/dL [facility] Comment: Clinical correlation required for positive Urine Bilirubin results as false positive may occur with some drugs and drug related products. If a false positive is suspected a serum total bilirubin should be considered if clinically indicated. Urobilinogen, Urine Dipstick Normal Normal mg/dL [facility] pH, Urn (dipstick) 6.0 5.0 - 8.0 [facility] Blood, Urine Dipstick Trace(A) Negative mg/dL [facility] Ketone, Urine Dipstick 40(A) Negative mg/dL [facility] Nitrite, Urine Dipstick Negative Negative [facility] Leukocytes, Urine Dipstick Negative Negative [facility] Appearance, Urine Dipstick Clear Clear [facility] Specific [place] Urine Automated >=1.030(A) 1.006 - 1.030 [facility] Color, Urine Dipstick Yellow Yellow [facility] Reflex to Culture No [facility] Urine specimen obtained via indwelling urinary catheter (specimen) 10/29/2020 12:03 PM EST 10/29/2020 12:37 PM EST Narrative Resulting Agency Comment Spec In Lab Adrienne Medellin MD URINE ORDERABLES Performing Organization Address [facility] Co de Phone Number [facility] [place] [address] * Blood culture (10/29/2020 6:10 AM EST) Blood Culture No growth at 5 days. [facility] Blood specimen (specimen) STRUCTURE OF RIGHT HAND / Unknown 10/29/2020 6:10 AM EST 10/29/2020 6:38 AM EST Narrative Resulting Agency Comment Spec In Lab Adrienne Medellin MD MICROBIOLOGY - BLOOD ORDERABLES Performing Organization Address [facility] Co de Phone Number [facility] [place] [address] * Blood culture (10/29/2020 6:10 AM EST) Blood Culture No growth at 5 days. [facility] Blood specimen (specimen) STRUCTURE OF LEFT UPPER LIMB / Unknown 10/29/2020 6:10 AM EST 10/29/2020 6:39 AM EST Narrative Resulting Agency Comment Spec In Lab Adrienne Medellin MD MICROBIOLOGY - BLOOD ORDERABLES Performing Organization Address [facility] Co de Phone Number [facility] [place] [address] * XR Chest One View (10/29/2020 6:07 [...] course of the esophagus courses off the [id number] inferiorly over the abdomen. Thank you for letting us participate in the care of this patient. For questions regarding this report, please contact the number below. ? Electronically signed by: Allen García MD, [facility] ([phone]), at 10/29/2020 6:35 AM Narrative 10/29/2020 6:35 [...] expected course of the esophagus coursesoff the [id number] inferiorly over the abdomen. Thank you for letting us participate in the care of this patient. Forquestions regarding this report, please contact the number below. Adrienne Medellin MD IMG DX ORDERABLES * Differential, Automated (10/29/2020 12:50 AM EST) Pathologist [facility] Neutrophil % 79.9 % [facility] Neutrophil Absolute 5.96 1.70 - 6.10 x10(3)/[facility] LABORATORY Lymph % 11.6 % [facility] Lymphocytes Abs 0.9 0.9 - 3.2 x10(3)/[facility] Monocyte % 8.0 % [facility] LABORATORY Monocyte Abs 0.6 0.3 - 0.9 x10(3)/[facility] LABORATORY Eos % 0.0 % [facility] Eosinophils Abs 0.0 0.0 - 0.4 x10(3)/[facility] LABORATORY Basophil % 0.1 % [facility]ORY Baso Absolute 0.0 0.0 - 0.1 x10(3)/[facility] LABORATORY Immature Gran % 0.40 % [facility] Comment: Immature granulocytes(IG's)percentage and absolute count will include metamyelocytes, myelocytes, and promyelocytes. Blood smears from CBCs yielding IG's will be scanned manually for concordance. If this scan disagrees with the automated IG or if promyelocytes are noted, a manual differential will be performed. Immature Gran Absolute 0.03 0.00 - 0.04 x10(3)/[facility] LABORATORY Blood specimen (specimen) 10/29/2020 12:50 AM EST 10/29/2020 1:03 AM EST Narrative Resulting Agency Comment Spec In Lab Alex Oropeza MD HEMATOLOGY ORDERABLE S [facility] [place] [address] * (ABNORMAL) Hemogram (10/29/2020 12:50 AM EST) [facility] White Blood Cell 7.5 4.0 - 9.5 x10(3)/mc L [facility] Red Blood Cell 3.64(L) 4.58 - 5.54 x10(6)/ L [facility] Hemoglobin 11.2(L) 13.7 - 16.5 gm/dL [facility] Hematocrit 32.9(L) 40.5 - 48.5 % [facility] Mean Cell Volume 90.4 82.9 - 93.1 fL [facility] Mean Cell Hemoglobin 30.8 27.5 - 32.1 pg [facility] Mean Cell Hemoglobin Concentration 34.0 32.0 - 35.7 gm/dL [facility] Platelet 146 145 - 357 x10(3)/mc L [facility] RDW Standard Deviation 40.3 36.0 - 45.0 fL [facility] RDW coefficient of variation 12.2 11.4 - 13.8 % [facility] Mean Platelet Volume 11.4 7.6 - 12.9 fL [facility] NRBC% auto 0.0 % [facility] NRBC Absolute 0.000 0.000 - 0.000 x10(3)/mc L [facility] Blood specimen (specimen) 10/29/2020 12:50 AM EST 10/29/2020 1:03 AM EST Narrative Resulting Agency Comment Spec In Lab Alex Oropeza MD HEMATOLOGY ORDERABLE S Performing Organization Address City/State/[facility] Co de Phone Number [facility] [place] [address] * (ABNORMAL) Basic Metabolic Panel (non-fasting) (10/29/2020 12:50 AM EST) Glucose 96 65 - 199 mg/dL [facility] Comment:Diabetes: >=200 mg/d L plus symptoms Blood Urea Nitrogen 15 10 - 20 mg/dL [facility] Creatinine 0.93 0.80 - 1.50 mg/dL [facility] Sodium 136 135 - 145 mmol/L [facility] Potassium 4.2 3.5 - 5.0 mmol/L [facility] Comment: Please note: ??Patients with WBC >100,000 may have falsely elevated Potassium levels. ??For accurate Potassium quantification in these patients send serum separator tube (gold top) for subsequent determinations. ??Contact the Clinical Chemistry Laboratory if there are any questions. Chloride 105 98 - 107 mmol/L [facility] Carbon Dioxide 25 22 - 31 mmol/L [facility] Anion Gap 6 5 - 15 mmol/L [facility] Calcium 7.8(L) 8.5 - 10.5 mg/dL [facility] Est Glomerular Filtration Rate 93 >=60 mL/min/1. 73 m?? [facility] Comment: This patient? s [...] Bolden MD CHEMISTRY ORDERABLES Performing Organization Address City/[facility] Co de Phone Number [facility] [place] [address] * (ABNORMAL) Phosphorus (10/29/2020 12:50 AM EST) Phosphorus 1.6(L) 2.5 - 4.5 mg/dL [facility] Blood specimen (specimen) 10/29/2020 12:50 AM EST 10/29/2020 1:03 AM EST Narrative Resulting Agency Comment Spec In Lab Radha Bolden MD CHEMISTRY ORDERABLES [facility] [place] [address] * Magnesium (10/29/2020 12:50 AM EST) [facility] Magnesium 0.75 0.69 - 1.07 mmol/L [facility] Blood specimen (specimen) 10/29/2020 12:50 AM EST 10/29/2020 1:03 AM EST Narrative Resulting Agency Comment Spec In Lab Radha Bolden MD CHEMISTRY ORDERABLES Performing Organization Address City/[facility] Co de Phone Number [facility] [place] [address] * Differential, Automated (10/28/2020 1:40 AM EST) [facility] Neutrophil % 78.6 % [facility] Neutrophil Absolute 5.94 1.70 - 6.10 x10(3)/[facility] LABORATORY Lymph % 12.6 % [facility] Lymphocytes Abs 1.0 0.9 - 3.2 x10(3)/[facility] LABORATORY Monocyte % 8.5 % [facility] Monocyte Abs 0.6 0.3 - 0.9 x10(3)/[facility] Eos % 0.0 % [facility] Eosinophils Abs 0.0 0.0 - 0.4 x10(3)/[facility] LABORATORY Basophil % 0.0 % [facility] Baso Absolute 0.0 0.0 - 0.1 x10(3)/[facility] LABORATORY Immature Gran % 0.30 % [facility] Comment: Immature granulocytes(IG's)percentage and absolute count will include metamyelocytes, myelocytes, and promyelocytes. Blood smears from CBCs yielding IG's will be scanned manually for concordance. If this scan disagrees with the automated IG or if promyelocytes are noted, a manual differential will be performed. Immature Gran Absolute 0.02 0.00 - 0.04 x10(3)/[facility] LABORATORY Blood specimen (specimen) 10/28/2020 1:40 AM EST 10/28/2020 1:46 AM EST Narrative Resulting Agency Comment Spec In Lab Alex Oropeza MD HEMATOLOGY ORDERABLE S [facility] [place] [address] * (ABNORMAL) Hemogram (10/28/2020 1:40 AM EST) White Blood Cell 7.6 4.0 - 9.5 x10(3)/[facility] LABORATORY Red Blood Cell 3.71(L) 4.58 - 5.54 x10(6)/[facility] LABORATORY Hemoglobin 11.3(L) 13.7 - 16.5 gm/dL [facility] Hematocrit 33.8(L) 40.5 - 48.5 % [facility] Mean Cell Volume 91.1 82.9 - 93.1 [facility] LABORATORY Mean Cell Hemoglobin 30.5 27.5 - 32.1 pg [facility] Mean Cell Hemoglobin Concentration 33.4 32.0 - 35.7 gm/dL [facility] Platelet 136(L) 145 - 357 x10(3)/[facility] LABORATORY RDW Standard Deviation 41.5 36.0 - 45.0 [facility] LABORATORY RDW coefficient of variation 12.5 11.4 - 13.8 % [facility] Mean Platelet Volume 11.3 7.6 - 12.9 [facility] LABORATORY NRBC% auto 0.0 % [facility] NRBC Absolute 0.000 0.000 - 0.000 x10(3)/[facility] LABORATORY Blood specimen (specimen) 10/28/2020 1:40 AM EST 10/28/2020 1:46 AM EST Narrative Resulting Agency Comment Spec In Lab Alex Oropeza MD HEMATOLOGY ORDERABLE S Performing Organization Address [facility] Co de Phone Number [facility] [place] [address] * Phosphorus (10/28/2020 1:40 AM EST) Pathologist [facility] Phosphorus 3.1 2.5 - 4.5 mg/dL [facility] Blood specimen (specimen) 10/28/2020 1:40 AM EST 10/28/2020 1:46 AM EST Narrative Resulting Agency Comment Spec In Lab Radha Bolden MD CHEMISTRY ORDERABLES Performing Organization Address [facility] de Phone Number [facility] [place] [address] * Magnesium (10/28/2020 1:40 AM EST) [facility] Magnesium 0.88 0.69 - 1.07 mmol/L [facility] Blood specimen (specimen) 10/28/2020 1:40 AM EST 10/28/2020 1:46 AM EST Narrative Resulting Agency Comment Spec In Lab Radha Bolden MD CHEMISTRY ORDERABLES Performing Organization Address [facility] Phone Number [facility] [place] [address] * (ABNORMAL) Basic Metabolic Panel (non-fasting) (10/28/2020 1:40 AM EST) Pathologist [facility] Glucose 137 65 - 199 mg/dL [facility] Comment:Diabetes: >=200 mg/d L plus symptoms Blood Urea Nitrogen 14 10 - 20 mg/dL [facility] Creatinine 0.90 0.80 - 1.50 mg/dL [facility] Sodium 138 135 - 145 mmol/L [facility] Potassium 4.6 3.5 - 5.0 mmol/L [facility] Comment: Please note: ??Patients with WBC >100,000 may have falsely elevated Potassium levels. ??For accurate Potassium quantification in these patients send serum separator tube (gold top) for subsequent determinations. ??Contact the Clinical Chemistry Laboratory if there are any questions. Chloride 108(H) 98 - 107 mmol/L [facility] Carbon Dioxide 24 22 - 31 mmol/L [facility] Anion Gap 6 5 - 15 mmol/L [facility] Calcium 7.7(L) 8.5 - 10.5 mg/dL [facility] Est Glomerular Filtration Rate 97 >=60 mL/min/1. 73 m?? [facility] Comment: This patient? s [...] In Lab Radha Bolden MD CHEMISTRY ORDERABLES [facility] [place] [address] * XR Cervical Spine 2 or 3 [...] Protein, Total 5.4(L) 6.1 - 8.0 gm/dL [facility] Albumin 3.5 3.2 - 5.2 gm/dL [facility] Aspartate Aminotransferase 80(H) 0 - 39 unit/L [facility] Alanine Aminotransferase 32 0 - 55 unit/L [facility] Alkaline Phosphatase 60 40 - 130 unit/L [facility] Bilirubin, Total 0.5 0.2 - 1.3 mg/dL [facility] Bilirubin, Direct 0.1 0.0 - 0.3 mg/dL [facility] Blood specimen (specimen) Venous Draw / Unknown 10/27/2020 5:25 PM EST 10/27/2020 6:19 PM EST Narrative Resulting Agency Comment Spec In Lab Neida Omalley MD CHEMISTRY ORDERABLES Performing Organization Address [facility] Co de Phone Number [facility] [place] [address] * Potassium (10/27/2020 5:25 PM EST) Potassium 4.8 3.5 - 5.0 mmol/L [facility] Comment: Please note: ??Patients [...] Medellin MD CHEMISTRY ORDERABLES Performing Organization Address City/[facility]/ZIP Co de Phone Number [facility] [place] [address] * Magnesium (10/27/2020 5:25 PM EST) Magnesium 0.91 0.69 - 1.07 mmol/L [facility] Blood specimen (specimen) 10/27/2020 5:25 PM EST 10/27/2020 6:15 PM EST Narrative Resulting Agency Comment Spec In Lab Adrienne Medellin MD CHEMISTRY ORDERABLES Performing Organization Address City/[facility] [place] [address] * XR Chest One View (10/27/2020 2:29 [...] signed by: Allen García MD, [facility] ([phone]), at 10/28/2020 7:32 AM Narrative 10/28/2020 7:32 [...] 1:25 PM EST) Neutrophil % 92.4 % [facility] Neutrophil Absolute 8.31(H) 1.70 - 6.10 x10(3)/ L [facility] Lymph % 5.3 % [facility] Lymphocytes Abs 0.5(L) 0.9 - 3.2 x10(3)/[facility] LABORATORY Monocyte % 2.0 % [facility] Monocyte Abs 0.2(L) 0.3 - 0.9 x10(3)/ L [facility] Eos % 0.0 % [facility] Eosinophils Abs 0.0 0.0 - 0.4 x10(3)/[facility] LABORATORY Basophil % 0.1 % [facility] Baso Absolute 0.0 0.0 - 0.1 x10(3)/[facility] LABORATORY Immature Gran % 0.20 % [facility] Comment: Immature granulocytes(IG's)percentage and absolute count will include metamyelocytes, myelocytes, and promyelocytes. Blood smears from CBCs yielding IG's will be scanned manually for concordance. If this scan disagrees with the automated IG or if promyelocytes are noted, a manual differential will be performed. Immature Gran Absolute 0.02 0.00 - 0.04 x10(3)/ L [facility] Blood specimen (specimen) 10/27/2020 1:25 PM EST 10/27/2020 1:29 PM EST Narrative Resulting Agency Comment Spec In Lab Tyesha Lopez MD HEMATOLOGY ORDERABL ES Performing Organization Address City/[facility]/ZIP Co de Phone Number [facility] [place] [address] * (ABNORMAL) Hemogram (10/27/2020 1:25 PM EST) White Blood Cell 9.0 4.0 - 9.5 x10(3)/mc L [facility] Red Blood Cell 3.84(L) 4.58 - 5.54 x10(6)/mc L [facility] Hemoglobin 11.7(L) 13.7 - 16.5 gm/dL [facility] Hematocrit 35.4(L) 40.5 - 48.5 % [facility] Mean Cell Volume 92.2 82.9 - 93.1 fL [facility] Mean Cell Hemoglobin 30.5 27.5 - 32.1 pg [facility] Mean Cell Hemoglobin Concentration 33.1 32.0 - 35.7 gm/dL [facility] Platelet 169 145 - 357 x10(3)/mc L [facility] RDW Standard Deviation 42.6 36.0 - 45.0 [facility] LABORATORY RDW coefficient of variation 12.6 11.4 - 13.8 % [facility] Mean Platelet Volume 10.9 7.6 - 12.9 fL [facility] NRBC% auto 0.0 % [facility] NRBC Absolute 0.000 0.000 - 0.000 x10(3)/mc L [facility] Blood specimen (specimen) 10/27/2020 1:25 PM EST 10/27/2020 1:29 PM EST Narrative Resulting Agency Comment Spec In Lab Tyesha Lopez MD HEMATOLOGY ORDERABL ES Performing Organization Address City/[facility]/ZIP Co de Phone Number [facility] [place] [address] * Phosphorus (10/27/2020 1:25 PM EST) Phosphorus 3.6 2.5 - 4.5 mg/dL [facility] Blood specimen (specimen) 10/27/2020 1:25 PM EST 10/27/2020 1:29 PM EST Narrative Resulting Agency Comment Spec In Lab Adrienne Medellin MD CHEMISTRY ORDERABLES Performing Organization Address [facility] Co de Phone Number [facility] [place] [address] * (ABNORMAL) Magnesium (10/27/2020 1:25 PM EST) Pathologist [facility] Magnesium 0.61(L) 0.69 - 1.07 mmol/L [facility] Blood specimen (specimen) 10/27/2020 1:25 PM EST 10/27/2020 1:29 PM EST Narrative Resulting Agency Comment Spec In Lab Adrienne Medellin MD CHEMISTRY ORDERABLES Performing Organization Address [facility] Phone Number [facility] [place] [address] * (ABNORMAL) Basic Metabolic Panel (non-fasting) (10/27/2020 1:25 PM EST) Pathologist [facility] Glucose 117 65 - 199 mg/dL [facility] Comment:Diabetes: >=200 mg/d L plus symptoms Blood Urea Nitrogen 13 10 - 20 mg/dL [facility] Creatinine 1.08 0.80 - 1.50 mg/dL [facility] Sodium 137 135 - 145 mmol/L [facility] Potassium 5.3(H) 3.5 - 5.0 mmol/L [facility] Comment: result rechecked-ga Please note: ??Patients with WBC >100,000 may have falsely elevated Potassium levels. ??For accurate Potassium quantification in these patients send serum separator tube (gold top) for subsequent determinations. ??Contact the Clinical Chemistry Laboratory if there are any questions. Chloride 108(H) 98 - 107 mmol/L [facility] Carbon Dioxide 21(L) 22 - 31 mmol/L [facility] Anion Gap 8 5 - 15 mmol/L [facility] Calcium 7.6(L) 8.5 - 10.5 mg/dL [facility] Est Glomerular Filtration Rate 78 >=60 mL/min/1. 73 m?? [facility] Comment: This patient? s [...] Medellin MD CHEMISTRY ORDERABLES Performing Organization Address City/State/[facility] Co ca Phone Number [facility] [place] [address] * XR O-Arm No Rad <1Hr - [...] EST) pH, Arterial 7.31(L) 7.35 - 7.45 [facility] PCO2, Arterial 41 35 - 45 mmHg [facility] PO2, Arterial 153(H) 85 - 104 mmHg [facility] Bicarbonate, Arterial 20.4 20.0 - 26.0 mmol/L [facility] Base Excess, Arterial -6.2(L) -3.0 - 3.0 mmol/L [facility] Hgb Blood Gas 13.0(L) 13.7 - 16.5 gm/dL [facility] Oxyhemoglobin, Arterial 97.6(H) 94.0 - 97.0 % [facility] Carboxyhemoglob in, Arterial 0.9 % [facility] Comment: Nonsmokers: 0.5-1.5% COHB Smokers: Variable, but usually less than 10% Toxic: 20-30% COHB Lethal: Greater than 60% COHB Methemoglobin, Arterial 0.3 <=1.5 % [facility] Na Whole Blood 133(L) 135 - 145 mmol/L [facility] K Whole Blood 5.1(H) 3.5 - 5.0 mmol/L [facility] Comment: Please note: Patients with WBC >100,000 may have falsely elevated Potassium levels. Contact the Clinical Chemistry Laboratory if there are any questions. ICa Whole Blood 1.09(L) 1.15 - 1.33 mmol/L [facility] Comment: Note: ??Total bilirubin higher than 20 mg/dL may lead to falsely low ionized calcium. CL Whole Blood 110(H) 98 - 107 mmol/L [facility] Gluc Whole Bld 105 65 - 199 mg/dL [facility] Comment:Diabetes: >=200 mg/d L plus symptoms. Lactate WB 1.4 0.5 - 2.2 mmol/L [facility] FIO2 Art 42 % [facility] PF Ratio Art 364 [facility] Temp Art 35.9 Celsius [facility] Blood specimen (specimen) 10/27/2020 11:29 AM EST 10/27/2020 11:29 AM EST Adrienne Medellin MD POINT OF CARE TEST O RDERABLES [facility] [place] [address] * (ABNORMAL) BLOOD GAS 2 ARTERIAL (10/27/2020 10:27 AM EST) pH, Arterial 7.32(L) 7.35 - 7.45 [facility] PCO2, Arterial 38 35 - 45 mmHg [facility] PO2, Arterial 131(H) 85 - 104 mmHg [facility] Bicarbonate, Arterial 19.8(L) 20.0 - 26.0 mmol/L [facility] Base Excess, Arterial -6.6(L) -3.0 - 3.0 mmol/L [facility] Hgb Blood Gas 13.0(L) 13.7 - 16.5 gm/dL [facility] Oxyhemoglobin, Arterial 97.5(H) 94.0 - 97.0 % [facility] Carboxyhemoglob in, Arterial 0.8 % [facility] Comment: Nonsmokers: 0.5-1.5% COHB Smokers: Variable, but usually less than 10% Toxic: 20-30% COHB Lethal: Greater than 60% COHB Methemoglobin, Arterial 0.3 <=1.5 % [facility] Na Whole Blood 134(L) 135 - 145 mmol/L [facility] K Whole Blood 4.6 3.5 - 5.0 mmol/L [facility] Comment: Please note: Patients with WBC >100,000 may have falsely elevated Potassium levels. Contact the Clinical Chemistry Laboratory if there are any questions. ICa Whole Blood 1.11(L) 1.15 - 1.33 mmol/L [facility] Comment: Note: ??Total bilirubin higher than 20 mg/dL may lead to falsely low ionized calcium. CL Whole Blood 110(H) 98 - 107 mmol/L [facility] Gluc Whole Bld 101 65 - 199 mg/dL [facility] Comment:Diabetes: >=200 mg/d L plus symptoms. Lactate WB 1.5 0.5 - 2.2 mmol/L [facility] FIO2 Art 42 % [facility] PF Ratio Art 312 [facility] Temp Art 35.1 Celsius [facility] Blood specimen (specimen) 10/27/2020 10:27 AM EST 10/27/2020 10:27 AM EST Adrienne Medellin MD POINT OF CARE TEST O RDERABLES [facility] [place] [address] * (ABNORMAL) BLOOD GAS 2 ARTERIAL (10/27/2020 9:28 AM EST) pH, Arterial 7.29(Crit ical) 7.35 - 7.45 [facility] Comment: Noted by supervisor instrument mechanics. Critical notified to Dr. Mariana Rojas by supervisor instrument mechanics immediately following run time. PCO2, Arterial 40 35 - 45 mmHg [facility] PO2, Arterial 171(H) 85 - 104 mmHg [facility] Bicarbonate, Arterial 19.6(L) 20.0 - 26.0 mmol/L [facility] Base Excess, Arterial -7.5(L) -3.0 - 3.0 mmol/L [facility] Hgb Blood Gas 13.5(L) 13.7 - 16.5 gm/dL [facility] Oxyhemoglobin, Arterial 98.0(H) 94.0 - 97.0 % [facility] Carboxyhemoglob in, Arterial 0.8 % [facility] Comment: Nonsmokers: 0.5-1.5% COHB Smokers: Variable, but usually less than 10% Toxic: 20-30% COHB Lethal: Greater than 60% COHB Methemoglobin, Arterial 0.3 <=1.5 % [facility] Na Whole Blood 135 135 - 145 mmol/L [facility] K Whole Blood 4.3 3.5 - 5.0 mmol/L [facility] Comment: Please note: Patients with WBC >100,000 may have falsely elevated Potassium levels. Contact the Clinical Chemistry Laboratory if there are any questions. ICa Whole Blood 1.15 1.15 - 1.33 mmol/L [facility] Comment: Note: ??Total bilirubin higher than 20 mg/dL may lead to falsely low ionized calcium. CL Whole Blood 108(H) 98 - 107 mmol/L [facility] Gluc Whole Bld 103 65 - 199 mg/dL [facility] Comment:Diabetes: >=200 mg/d L plus symptoms. Lactate WB 2.2 0.5 - 2.2 mmol/L [facility] FIO2 Art 43 % [facility] PF Ratio Art 398 [facility] Temp Art 34.7 Celsius [facility] Blood specimen (specimen) 10/27/2020 9:28 AM EST 10/27/2020 9:28 AM EST Adrienne Medellin MD POINT OF CARE TEST O VISHAL Performing Organization Address [facility] Phone Number [facility] [place] [address] * POCT Glucose (10/27/2020 6:19 AM EST) Glucose, POC 101 65 - 199 mg/dL [facility] Comment: Supplemental ranges: <140 mg/dL before meals <180 mg/dL all other times of the day Blood specimen (specimen) 10/27/2020 6:19 AM EST 10/27/2020 6:19 AM EST Adrienne Medellin MD POINT OF CARE TEST O VISHAL Performing Organization Address [facility] Co ca Phone Number [facility] [place] [address] * MRI Cervical Spine wo Contrast (Generic) [...] signed by: Allen García MD, [facility] ([phone]), at 10/27/2020 7:01 AM Narrative 10/27/2020 7:01 [...] 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 C6-C7 disc [...] contact the number below. Alexandr Ramirez MD [facility] MRI ORDERABLES * XR Cervical Spine 1 [...] signed by: Allen García MD, [facility] ([phone]), at 10/27/2020 5:17 AM Narrative 10/27/2020 5:17 [...] signed by: Allen García MD, [facility] ([phone]), at 10/27/2020 5:17 AM Narrative 10/27/2020 5:17 [...] signed by: Allen García MD, [facility] ([phone]), at 10/27/2020 5:17 AM Narrative 10/27/2020 5:17 [...] signed by: Allen García MD, [facility] ([phone]), at 10/27/2020 5:17 AM Narrative 10/27/2020 5:17 [...] signed by: Allen García MD, [facility] ([phone]), at 10/27/2020 5:17 AM Narrative 10/27/2020 5:17 [...] signed by: Allen García MD, [facility] ([phone]), at 10/27/2020 5:17 AM Narrative 10/27/2020 5:17 [...] signed by: Allen García MD, [facility] ([phone]), at 10/27/2020 5:17 AM Narrative 10/27/2020 5:17 [...] signed by: Allen García MD, [facility] ([phone]), at 10/27/2020 5:17 AM Narrative 10/27/2020 5:17 [...] signed by: Allen García MD, [facility] ([phone]), at 10/27/2020 5:17 AM Narrative 10/27/2020 5:17 [...] number below. ? Electronically signed by: Allen Garcaí MD, [facility] ([phone]), at 10/27/2020 5:17 AM Narrative 10/27/2020 5:17 [...] signed by: Allen García MD, [facility] ([phone]), at 10/27/2020 5:17 AM Narrative 10/27/2020 5:17 [...] signed by: Allen García MD, [facility] ([phone]), at 10/27/2020 5:17 AM Narrative 10/27/2020 5:17 [...] signed by: Allen García MD, [facility] ([phone]), at 10/27/2020 5:17 AM Narrative 10/27/2020 5:17 [...] EST) pH, Arterial 7.33(L) 7.35 - 7.45 [facility] PCO2, Arterial 39 35 - 45 mmHg [facility] PO2, Arterial 75(L) 85 - 104 mmHg [facility] Bicarbonate, Arterial 19.9(L) 20.0 - 26.0 mmol/L [facility] Base Excess, Arterial -6.0(L) -3.0 - 3.0 mmol/L [facility] Hgb Blood Gas 13.7 13.7 - 16.5 gm/dL [facility] Oxyhemoglobin, Arterial 92.4(L) 94.0 - 97.0 % [facility] Carboxyhemoglob in, Arterial 0.4 % [facility] Comment: Nonsmokers: 0.5-1.5% COHB Smokers: Variable, but usually less than 10% Toxic: 20-30% COHB Lethal: Greater than 60% COHB Methemoglobin, Arterial 0.3 <=1.5 % [facility] Na Whole Blood 135 135 - 145 mmol/L [facility] K Whole Blood 3.9 3.5 - 5.0 mmol/L [facility] Comment: Please note: Patients with WBC >100,000 may have falsely elevated Potassium levels. Contact the Clinical Chemistry Laboratory if there are any questions. ICa Whole Blood 1.19 1.15 - 1.33 mmol/L [facility] Comment: Note: ??Total bilirubin higher than 20 mg/dL may lead to falsely low ionized calcium. CL Whole Blood 104 98 - 107 mmol/L [facility] Gluc Whole Bld 116 65 - 199 mg/dL [facility] Comment:Diabetes: >=200 mg/d L plus symptoms. Lactate WB 2.4(H) 0.5 - 2.2 mmol/L [facility] Blood specimen (specimen) 10/27/2020 12:25 AM EST 10/27/2020 12:25 AM EST Alexandr Ramirez MD POINT OF CARE TEST O RDERABLES [facility] [place] [address] * (ABNORMAL) BLOOD GAS 2 VENOUS (10/27/2020 12:14 AM EST) pH, Venous 7.31(L) 7.32 - 7.42 [facility] PCO2, Venous 40(L) 41 - 51 mmHg [facility] PO2, Venous 65(H) 25 - 40 mmHg [facility] Bicarbonate, Venous 19.3 mmol/L [facility] Base Excess, Venous -7.0 mmol/L [facility] Hgb Blood Gas 13.2(L) 13.7 - 16.5 gm/dL [facility] Oxyhemoglobin, Venous 88.7 % [facility] Carboxyhemoglob in, Venous 0.7 % [facility] Comment: Nonsmokers: 0.5-1.5% COHB Smokers: Variable, but usually less than 10% Toxic: 20-30% COHB Lethal: Greater than 60% COHB Methemoglobin, Venous 0.4 <=1.5 % [facility] Na Whole Blood 136 135 - 145 mmol/L [facility] K Whole Blood 3.9 3.5 - 5.0 mmol/L [facility] Comment: Please note: Patients with WBC >100,000 may have falsely elevated Potassium levels. Contact the Clinical Chemistry Laboratory if there are any questions. ICa Whole Blood 1.15 1.15 - 1.33 mmol/L [facility] Comment: Note: ??Total bilirubin higher than 20 mg/dL may lead to falsely low ionized calcium. CL Whole Blood 106 98 - 107 mmol/L [facility] Gluc Whole Bld 109 65 - 199 mg/dL [facility] Comment:Diabetes: >=200 mg/d L plus symptoms Lactate WB 2.5(H) 0.5 - 2.2 mmol/L [facility] Blood Gas Source Venous [facility] Blood specimen (specimen) 10/27/2020 12:14 AM EST 10/27/2020 12:14 AM EST Alexandr Ramirez MD POINT OF CARE TEST O RDERABLES [facility] [place] [address] * Urinalysis Microscopic Exam (10/26/2020 11:59 PM EST) RBC, Urine 2 0 - 3 /HPF [facility] WBC, Urine 1 0 - 3 /HPF [facility] Squamous Epithelial Cells Raw Data, Urine 2 <=4 /HPF [facility] Hyaline Casts, Urine 1 0 - 2 /LPF [facility] First stream urine specimen (specimen) 10/26/2020 11:59 PM EST 10/27/2020 12:26 AM EST Narrative Resulting Agency Comment Spec In Lab Adrienne Medellin MD URINE ORDERABLES [facility] [place] [address] * (ABNORMAL) Rapid Drug Screen w/o Confirmation, Urine (10/26/2020 11:59 PM EST) Pathologist [facility] Barbiturates Screen, Urine None Detected None Detected [facility] Comment: The barbiturate screen [...] Benzodiazepines Screen, Urine None Detected None Detected [facility] Comment: The benzodiazepines screen [...] Cocaine Screen, Urine None Detected None Detected [facility] Comment: The cocaine metabolites screen detects benzoylecgonine (Cocaine Metabolite) at concentrations >150 ng/mL. A ? Presumptive Positive? result indicates that the screening result was positive but has not yet been confirmed by a highly-specific method. As with any screen, occasional false positive results from cross-reacting substances may occur. Not for Medico-Legal Purposes. Methadone Metabolites Screen, Urine None Detected None Detected [facility] Comment: The methadone metabolite screen detects EDDP (major methadone metabolite) at concentrations >100 ng/mL. A ? Presumptive Positive? result indicates that the screening result was positive but has not yet been confirmed by a highly-specific method. As with any screen, occasional false positive results from cross-reacting substances may occur. Not for Medico-Legal Purposes. Opiate Screen, Urine None Detected None Detected [facility] Comment: The opiates screen [...] Cannabinoid Screen, Urine Presumptive Pos(A) None Detected [facility] Comment: The marijuana metabolites screen detects the THC metabolite (98-uih-3-carboxy-delta 9-THC) at concentrations >20 ng/mL. A ? Presumptive Positive? result indicates that the screening result was positive but has not yet been confirmed by a highly-specific method. As with any screen, occasional false positive results from cross-reacting substances may occur. Not for Medico-Legal Purposes. Oxycodone Screen, Urine None Detected None Detected [facility] Comment: The oxycodone screen detects oxycodone and oxymorphone at concentrations >100 ng/mL. A ? Presumptive Positive? result indicates that the screening result was positive but has not yet been confirmed by a highly-specific method. As with any screen, occasional false positive results from cross-reacting substances may occur. Not for Medico-Legal Purposes. Buprenorphine Screen, Urine None Detected None Detected [facility] Comment: The buprenorphine screen detects buprenorphine at concentrations >5 ng/mL. A ? Presumptive Positive? result indicates that the screening result was positive but has not yet been confirmed by a highly-specific method. As with any screen, occasional false positive results from cross-reacting substances may occur. Not for Medico-Legal Purposes. Fentanyl Screen, Urine None Detected None Detected [facility] Comment: The fentanyl screen detects fentanyl at concentrations >2 ng/mL. A ? Presumptive Positive? result indicates that the screening result was positive but has not yet been confirmed by a highly-specific method. As with any screen, occasional false positive results from cross-reacting substances may occur. Not for Medico-Legal Purposes. Tricyclics Screen, Urine None Detected None Detected [facility] Comment: The tricyclics screen [...] Purposes. Ethanol Screen, Urine Positive(A) None Detected [facility] Comment:This urine ethanol a ssay detects ethanol at concentrations >/= 100 mg/L. Amphetamines Screen, Urine None Detected None Detected [facility] Comment: The amphetamine screen detects d-amphetamine and d-methamphetamine at concentrations >300 ng/mL. A ? Presumptive Positive? result indicates that the screening result was positive but has not yet been confirmed by a highly-specific method. As with any screen, occasional false positive results from cross-reacting substances may occur. Not for Medico-Legal Purposes. Adulterants Screen, Urine None Detected None Detected [facility] Comment: No adulteration or [...] Medellin MD CHEMISTRY ORDERABLES Performing Organization Address City/State/[facility] Co de Phone Number [facility] [place] [address] * (ABNORMAL) Urinalysis with reflex Culture (10/26/2020 11:59 PM EST) Glucose, Urine Dipstick Negative Negative mg/dL [facility] Protein, Urine Dipstick Trace(A) Negative mg/dL [facility] Bilirubin, Urine Dipstick Negative Negative mg/dL [facility] Comment: Clinical correlation required for positive Urine Bilirubin results as false positive may occur with some drugs and drug related products. If a false positive is suspected a serum total bilirubin should be considered if clinically indicated. Urobilinogen, Urine Dipstick Normal Normal mg/dL [facility] pH, Urn (dipstick) 5.5 5.0 - 8.0 [facility] Blood, Urine Dipstick Large(A) Negative mg/dL [facility] Ketone, Urine Dipstick Negative Negative mg/dL [facility] Nitrite, Urine Dipstick Negative Negative [facility] Leukocytes, Urine Dipstick Negative Negative [facility] Appearance, Urine Dipstick Clear Clear [facility] Specific [place] Urine Automated >=1.030(A) 1.006 - 1.030 [facility] Color, Urine Dipstick Yellow Yellow [facility] Reflex to Culture No [facility] First stream urine specimen (specimen) 10/26/2020 11:59 PM EST 10/27/2020 12:26 AM EST Narrative Resulting Agency Comment Spec In Lab Luann Hartley MD URINE ORDERABLES [facility] [place] [id number] * Rapid Drug Screen, Urine (LALITA Request) (10/26/2020 11:59 PM EST) LALITA Conf Requested No [facility] Comment: Collection date/time has been modified to: 23:59:00. ??Previous collection date/time: 23:19:00. Corrected from No [NA] on 10/27/20 0:26:49 EST by Maria E Moses LALITA Requested See Comment [facility] Comment: Refer to Rapid Drug Screen w/o Confirmation, Urine for results. Collection date/time has been modified to: 23:59:00. ??Previous collection date/time: 23:19:00. Corrected from See Comment [NA] on 10/27/20 0:26:49 EST by Maria E Moses Urine specimen (specimen) 10/26/2020 11:59 PM EST 10/27/2020 12:26 AM EST Narrative Resulting Agency Comment Spec In Lab Luann Hartley MD URINE ORDERABLES [facility] [place] [address] * CT Angiogram Carotids (10/26/2020 11:46 PM [...] necessary): Head and C spine; Sending Institution [facility]; Date of exam 20201026; I [...] comments as necessary): Head and C spine; [facility]; Date of exam 20201026; I believe a [...] the number below. Luann Hartley MD IMG CT ORDERABLES * Request For [...] signed by: Allen García MD, [facility] ([phone]), at 10/27/2020 12:38 AM Narrative 10/27/2020 12:38 AM EST EXAMINATION: REQUEST FOR 2ND READ CT HEAD AND SPINE, CT ANGIOGRAM CAROTIDS CLINICAL HISTORY: trauma found down; What Modality is the exam? CT Scan; Body Part (please add comments as necessary): Head and C spine; Sending Institution [facility]; Date of exam 20201026; I [...] comments as necessary): Head and C spine; SendingInstitution [facility]; Date of exam 20201026; I [...] signed by: Allen García MD, [facility] ([phone]), at 10/27/2020 2:07 AM Narrative 10/27/2020 2:07 AM EST EXAMINATION: REQUEST FOR 2ND READ CT CHEST ABDOMEN PELVIS INSTITUTION WHERE STUDY PERFORMED: [facility] DATE AND TIME OF STUDY: 10/26/2020 20:52 CLINICAL HISTORY: trauma found down; What Modality is the exam? CT Scan; Body Part (please add comments as necessary): Chest abdomen pelvis; Sending Institution [facility]; Date of exam 20201026; I [...] CHEST ABDOMEN PELVIS INSTITUTION WHERE STUDY PERFORMED: [facility] DATE AND TIME OF STUDY: 10/26/2020 20:52 CLINICAL HISTORY: trauma found down; What Modality is the exam? CT Scan;Body Part (please add comments as necessary): Chest abdomen pelvis; Sending Institution [facility]; Date of exam 20201026; I [...] Lactate WB 2.7(H) 0.5 - 2.2 mmol/L [facility] Blood specimen (specimen) 10/26/2020 11:31 PM EST 10/26/2020 11:31 PM EST Luann Hartley MD CHEMISTRY ORDERABLES [facility] [place] [address] * ABORH Recheck Status (10/26/2020 11:10 PM EST) ABORH Recheck Order Order Placed [facility] ABORH Type Recheck Not Performed [facility] Blood specimen (specimen) 10/26/2020 11:10 PM EST 10/26/2020 11:28 PM EST Narrative Resulting Agency Comment Spec In Lab Adrienne Medellin MD BLOOD BANK LAB ORDER LORNA Performing Organization Address City/[facility]/ZIP Co de Phone Number [facility] [place] [address] * Gold Tube HOLD (10/26/2020 11:10 PM EST) Gold Hold Sample in lab. [facility] Blood specimen (specimen) Venous Draw / Unknown 10/26/2020 11:10 PM EST 10/26/2020 11:34 PM EST Adrienne Medellin MD CHEMISTRY ORDERABLES Performing Organization Address City/[facility]/ZIP Co de Phone Number [facility] [place] [address] * Antibody screen (10/26/2020 11:10 PM EST) Ab Screen Interp Negative [facility] Expires at [id number] on: 10/29/2020 [facility] Blood specimen (specimen) 10/26/2020 11:10 PM EST 10/26/2020 11:28 PM EST Narrative Resulting Agency Comment Spec In Lab Adrienne Medellin MD BLOOD BANK LAB ORDER LORNA Performing Organization Address City/[facility]/ZIP Co de Phone Number [facility] [place] [address] * ABO/Rh Typing (10/26/2020 11:10 PM EST) ABORH Type AB Pos [facility] Blood specimen (specimen) 10/26/2020 11:10 PM EST 10/26/2020 11:28 PM EST Narrative Resulting Agency Comment Spec In Lab Adrienne Medellin MD BLOOD BANK LAB ORDER LORNA [facility] [place] [address] * (ABNORMAL) Differential, Automated (10/26/2020 11:10 PM EST) Neutrophil % 85.4 % [facility] Neutrophil Absolute 11.41(H) 1.70 - 6.10 x10(3)/[facility] Lymph % 9.3 % [facility] Lymphocytes Abs 1.2 0.9 - 3.2 x10(3)/[facility] Monocyte % 4.3 % [facility] Monocyte Abs 0.6 0.3 - 0.9 x10(3)/[facility] Eos % 0.3 % [facility] Eosinophils Abs 0.0 0.0 - 0.4 x10(3)/[facility] Basophil % 0.2 % [facility] Baso Absolute 0.0 0.0 - 0.1 x10(3)/[facility] Immature Gran % 0.50 % [facility] Comment: Immature granulocytes(IG's)percentage and absolute count will include metamyelocytes, myelocytes, and promyelocytes. Blood smears from CBCs yielding IG's will be scanned manually for concordance. If this scan disagrees with the automated IG or if promyelocytes are noted, a manual differential will be performed. Immature Gran Absolute 0.07(H) 0.00 - 0.04 x10(3)/[facility] Blood specimen (specimen) 10/26/2020 11:10 PM EST 10/26/2020 11:31 PM EST Narrative Resulting Agency Comment Spec In Lab Adrienne Medellin MD HEMATOLOGY ORDERABLE S [facility] [place] [address] * (ABNORMAL) Hemogram (10/26/2020 11:10 PM EST) Pathologist [facility] White Blood Cell 13.4(H) 4.0 - 9.5 x10(3)/ L [facility] Red Blood Cell 4.08(L) 4.58 - 5.54 x10(6)/mc L [facility] Hemoglobin 12.4(L) 13.7 - 16.5 gm/dL [facility] Hematocrit 36.7(L) 40.5 - 48.5 % [facility] Mean Cell Volume 90.0 82.9 - 93.1 fL [facility] Mean Cell Hemoglobin 30.4 27.5 - 32.1 pg [facility] Mean Cell Hemoglobin Concentration 33.8 32.0 - 35.7 gm/dL [facility] Platelet 188 145 - 357 x10(3)/[facility] RDW Standard Deviation 41.0 36.0 - 45.0 [facility] RDW coefficient of variation 12.4 11.4 - 13.8 % [facility] Mean Platelet Volume 10.9 7.6 - 12.9 [facility] NRBC% auto 0.0 % [facility] NRBC Absolute 0.000 0.000 - 0.000 x10(3)/[facility] Blood specimen (specimen) 10/26/2020 11:10 PM EST 10/26/2020 11:31 PM EST Narrative Resulting Agency Comment Spec In Lab Adrienne Medellin MD HEMATOLOGY ORDERABLE S [facility] [place] [address] * (ABNORMAL) Ethanol Level (10/26/2020 11:10 PM EST) Ethanol 1,893(H) <=99 mg/L [facility] Comment: Greater than 800 mg/L (0.08%) should be considered intoxicated. 3400 to 4500 mg/L (0.34 - 0.45%) is considered severe intoxication. Greater than 5500 mg/L (0.55%) is usually fatal. Blood specimen (specimen) 10/26/2020 11:10 PM EST 10/26/2020 11:31 PM EST Narrative Resulting Agency Comment Spec In Lab Authorizing Provider Result Danette Hartley MD CHEMISTRY ORDERABLES Performing Organization Address [facility] Co de Phone Number [facility] [place] [address] * (ABNORMAL) APTT (10/26/2020 11:10 PM EST) Partial Thromboplastin Time 22(L) 25 - 37 sec [facility] Comment: Decreased clotting times [...] MD HEMATOLOGY ORDERABLE S Performing Organization Address [facility] de Phone Number [facility] [place] [address] * Prothrombin Time (10/26/2020 11:10 PM EST) Prothrombin Time 11.1 9.4 - 12.5 sec [facility] International Normalization Ratio 1.0 [facility] Comment: An INR <2.0 [...] Result Danette Hartley MD HEMATOLOGY ORDERABLE S [facility] [place] [address] * (ABNORMAL) Basic Metabolic Panel (non-fasting) (10/26/2020 11:10 PM EST) Glucose 133 65 - 199 mg/dL [facility] Comment:Diabetes: >=200 mg/d L plus symptoms Blood Urea Nitrogen 15 10 - 20 mg/dL [facility] Creatinine 1.43 0.80 - 1.50 mg/dL [facility] Sodium 138 135 - 145 mmol/L [facility] Potassium 4.1 3.5 - 5.0 mmol/L [facility] Comment: Please note: ??Patients with WBC >100,000 may have falsely elevated Potassium levels. ??For accurate Potassium quantification in these patients send serum separator tube (gold top) for subsequent determinations. ??Contact the Clinical Chemistry Laboratory if there are any questions. Chloride 104 98 - 107 mmol/L [facility] Carbon Dioxide 20(L) 22 - 31 mmol/L [facility] Anion Gap 14 5 - 15 mmol/L [facility] Calcium 8.4(L) 8.5 - 10.5 mg/dL [facility] Est Glomerular Filtration Rate 56(L) >=60 mL/min/1. 73 m?? [facility] Comment: This patient? s [...] In Lab Luann Hartley MD CHEMISTRY ORDERABLES [facility] [place] [address] * COVID-19 PCR (10/26/2020 10:58 PM EST) SARS-CoV-2 RNA (Rapid) Not Detected Not Detected [facility] Comment: This result should [...] using the Simplexa COVID-19 Direct Assay by [employer] as authorized by the FDA issued Emergency [...] Department of Pathology and Laboratory Medicine at [facility], certified under the Clinical Laboratory Improvement [...] fact sheets at the following FDA website: https://www.fda.gov/medical-devices/ffcsyiogaos-vidjdfh-7120-bpztk-84-ylnqcnzef- use-a fsatkfmebettw-cgsdcsr-nzrfsmg/hotio-tlzizsiigeo-dzrv SARS-CoV-2 Source MANAGER COMMUNITY RELATIONS Swab MA RY [facility] Nasopharyngeal swab (specimen) 10/26/2020 10:58 PM EST 10/26/2020 11:34 PM EST Comment:Symptoms->Surveillan ce Narrative Resulting Agency Comment Spec In Lab Luann Hartley MD MICROBIOLOGY - GENER AL ORDERABLES Performing Organization Address [facility] de Phone Number [facility] [place] [place] [address] * Film Library- Storage Only CT Head And Spine (10/26/2020 9:51 PM EST) Narrative [facility] 10/26/2020 9:51 PM EST This exam is auto-finalizing. It's purpose is for storage only. Rayna Hoover APRN [facility] FILM LIBRARY ORD ERABLES Performing Organization Address [facility] de Phone Number [place], [place] * Film Library- Storage Only CT Chest Abdomen Pelvis (10/26/2020 9:49 PM EST) Narrative [facility] 10/26/2020 9:49 PM EST This exam is auto-finalizing. It's purpose is for storage only. Rayna Hoover APRN [facility] FILM LIBRARY ORD ERABLES Performing Organization Address [facility] de Phone Number [place], [place] documented in this encounter Visit Diagnoses [...] on Thu10/31/20 at 1915, Last dose on Thu11/01/20 at 1500, Maximum dose of acetaminophen is 4000 mg from all sources in 24 hours. When ordered for pain, acetaminophen should be given even when other ordered pain medications are indicated. , Routine, Is ketorolac (Toradol) IV contraindicated? Yes / SCI, Can this patient tolerate oral medications or suppositories? No / strict NPO per CORPORATE DIRECTOR OF HUMAN RESOURCES Given 11/01/2020 2:08 PM EST 1,000 mg 400 mL/hr Given 11/01/2020 9:18 AM EST 1,000 mg 400 mL/hr Given 11/01/2020 2:14 AM EST 1,000 mg 400 mL/hr acetaminophen (Ofirmev) (1000 mg/100 mL) infusion 1,000 mg 1,000 mg, Intravenous, at 400 mL/hr, Administer over 15 Minutes, EVERY 6 HOURS SCHEDULED, 4 doses, First dose (after last reorder) on Thu11/01/20 at 2200, Last dose on Thu11/02/20 at 1500, Maximum dose of acetaminophen is 4000 mg from all sources in 24 hours. When ordered for pain, acetaminophen should be given even when other ordered pain medications are indicated. , Routine, Is ketorolac (Toradol) IV contraindicated? Yes / SCI, Can this patient tolerate oral medications or suppositories? No / strict NPO per CORPORATE DIRECTOR OF HUMAN RESOURCES Given 11/02/2020 2:07 PM EST 1,000 mg 400 mL/hr Given 11/02/2020 9:31 AM EST 1,000 mg 400 mL/hr Given 11/02/2020 2:49 AM EST 1,000 mg 400 mL/hr acetaminophen (Ofirmev) (1000 mg/100 mL) infusion 1,000 mg 1,000 mg, Intravenous, at 400 mL/hr, Administer over 15 Minutes, EVERY 8 HOURS SCHEDULED, 5 doses, First dose on 11/07/20 at 0130, Last dose on Kathy 11/08/20 [...] Intravenous, at 84 mL/hr, CONTINUOUS, Starting on 11/03/20 at 1800, Until Thu11/05/20 at 1759, Peripheral TPN with Electrolytes. For [...] PM EST 10 mLs barium sulfate (Varibar [place]) 40% (w/v) oral liquid 40 mL 40 [...] on 10/28/20 at 0800, Last dose on Thu10/29/20 at 0000, Administer over 30 Minutes, Indication [...] CONTINUOUS, Starting on 10/27/20 at 1415, Until Thu10/30/20 at 0800, Titrate to sedation level of [...] restart at 50% of previous rate. Call overnight houseperson if goal not achieved at maximum rate. [...] CONTINUOUS, Starting on 11/03/20 at 0930, Until 11/04/20 at 0812, Warning Vesicant/Irritant Medication New Bag [...] on Thu11/03/20 at 1800, Last dose on 11/04/20 at 1800, fat emulsion 20% to be [...] on 10/27/20 at 1319, Until 10/31/20 at 1625, Pain, severe pain (7-10), May give an additional 0.2 mg in 30 minutes once if pain not relieved., Routine Given 10/30/2020 6:21 PM EST 0.6 mg Given 10/30/2020 2:35 PM EST 0.6 mg HYDROmorphone (Dilaudid) (2 mg/mL) multi-dose injection solution 0.2-0.4 mg 0.2-0.4 mg, Intravenous, EVERY 5 MIN PRN, Starting on Thu11/05/20 at 1315, Until Thu11/05/20 at 1424, Pain, Give 0.2 mg every [...] on 10/27/20 at 1319, Until Thu10/31/20 at 1828, Pain, mild pain (1-3), May give an additional 0.2 mg in 30 minutes once if pain not relieved., Routine Given 10/31/2020 9:10 AM EST 0.2 mg Given 10/29/2020 5:27 PM EST 0.2 mg HYDROmorphone (Dilaudid) 0.5 mg/0.5 mL injection 0.2 mg 0.2 mg, Intravenous, EVERY 2 HOURS PRN, Starting on Thu10/31/20 at 1830, Until Thu11/05/20 at 1614, Pain, mild pain (1-3), May [...] on 10/27/20 at 1319, Until Thu10/31/20 at 1828, Pain, moderate pain (4-6), May give an additional 0.2 mg in 30 minutes once if pain not relieved., Routine Given 10/31/2020 3:50 AM EST 0.4 mg Given 10/30/2020 10:29 PM EST 0.4 mg Given 10/30/2020 10:07 AM EST 0.4 mg HYDROmorphone (Dilaudid) 0.5 mg/0.5 mL injection 0.4 mg 0.4 mg, Intravenous, EVERY 2 HOURS PRN, Starting on Thu10/31/20 at 1830, Until Thu11/04/20 at 1249, Pain, moderate pain (4-6), May give an additional 0.2 mg in 30 minutes once if pain not relieved., Routine Given 11/02/2020 2:30 PM EST 0.4 mg Given 11/02/2020 3:49 AM EST 0.4 mg Given 11/01/2020 9:33 PM EST 0.4 mg iohexoL (Omnipaque) (350 mg/mL) injection solution 0-200 mL 0-200 mL, Intravenous, ONCE PRN, 1 dose, Starting on Thu11/08/20 at 1042, Until Thu11/08/20 at 1042, Per Protocol, Warning Vesicant/Irritant Medication [...] ONCE, 1 dose, On Thu10/29/20 at 2015 [facility] 10/29/2020 8:23 PM EST lactated Ringers 500 mL IV bolus Intravenous, ONCE, 1 dose, On Thu10/30/20 at 0900 [facility] 10/30/2020 8:07 AM EST lactated Ringers 500 mL IV bolus Intravenous, ONCE, 1 dose, On Thu10/30/20 at 1115 [facility] 10/30/2020 10:31 AM EST lactated Ringers 500 mL IV bolus Intravenous, ONCE, 1 dose, On Thu10/30/20 at 1145 [facility] 10/30/2020 11:01 AM EST lactated ringers infusion 1,000 mL, at 100 mL/hr, Intravenous, CONTINUOUS, Starting on Thu10/27/20 at 0715, Until Thu10/29/20 at 0912, Recovery (Recovery-Hospital Unit) Rate/Dose Verify 10/29/2020 4:00 AM EST 10 0 mL/hr [facility] 10/29/2020 2:35 AM EST 1,000 mLs 100 mL/hr Rate/Dose Verify 10/29/2020 2:00 AM EST 100 mL/ hr lactated ringers infusion 100 mL/hr, Intravenous, CONTINUOUS, Starting on Thu10/30/20 at 0900, Until Thu10/30/20 at 2303 Rate/Dose Change 10/30/2020 10:58 AM EST 100 mL/hr 100 mL/hr [facility] 10/30/2020 8:10 AM EST 75 mL/hr [...] dose, Until Thu11/01/20 at 1520, Mar Stanton (srt): cabinet override lidocaine (XYLOCAINE) 2 % jelly Topical (Top), EVERY 4 HOURS PRN, Pain, Starting on Thu11/01/20 at 1455, Until Thu11/20/20 at 1230 Given 11/01/2020 3:20 PM EST 20-Other (document i n comment section) LORazepam (Ativan) (2 mg/mL) injection 2 mg 2 mg, Intravenous, ONCE, 1 dose, On Thu10/27/20 at 0745, Routine Given 10/27/2020 6:59 AM EST 2 mg LORazepam (Ativan) 2 mg/mL injection 1 dose, Starting on 10/27/20 at 0154, Until 10/27/20 at 0155, YUMIKO Zaragoza: cabinet override Given [...] Per G Tube, NIGHTLY, First dose on Thu11/05/20 at 2100, Until Discontinued, Routine Given 11/10/2020 [...] 1 tablet, Oral, DAILY, First dose on 10/28/20 at 1145, Until Discontinued, Routine Given 10/31/2020 [...] mg = 1.8 mg/kg/dose ? 82.2 kg [place] weight), Intravenous, at 13.7 mL/hr, Administer over [...] mg = 2.4 mg/kg/dose ? 82.2 kg [place] weight), Intravenous, at 18.2 mL/hr, Administer over [...] mg = 0.24 mg/kg/dose ? 82.2 kg [place] weight), Per G Tube, 2 TIMES DAILY, [...] mg = 0.48 mg/kg/dose ? 82.2 kg [place] weight), Oral, 2 TIMES DAILY, 2 doses, First dose on 10/28/20 at 0900, Last dose on Thu10/28/20 at 2100, Hold for RASS [...] mg = 0.48 mg/kg/dose ? 82.2 kg [place] weight), Per G Tube, 2 TIMES DAILY, 1 dose, First dose (after last modification) on 10/28/20 at 2100, Hold for RASS [...] mg = 0.12 mg/kg/dose ? 82.2 kg [place] weight), Per G Tube, 2 TIMES DAILY, [...] 50 mL Mini-Bag Plus 3.375 g, Intravenous, CREDIT RISK ANALYST TO O.R., 1 dose, On Thu11/05/20 at [...] NIGHTLY, First dose (after last modification) on Thu11/01/20 at 1700, Until Discontinued, Dissolve tablets in [...] at 1310, Until 10/27/20 at 1320, DENISE DOMINGUEZ: cabinet override propofoL (Diprivan) infusion 0-50 mcg/kg/min [...] restart at 50% of previous rate. Call overnight houseperson if goal not achieved at maximum rate. [...] tube, 2 TIMES DAILY, First dose on Thu11/01/20 at 1200, Until Discontinued, Routine Given 11/01/2020 [...] 34.4 mg, Oral, NIGHTLY, First dose on Thu10/28/20 at 2100, Until Discontinued, Routine Given 10/28/2020 [...] mL, Per G Tube, CONTINUOUS, Starting on Tu11/06/20 at 0630, Until Thu11/07/20 at 1306, Administer [...] CONTINUOUS, Starting on Thu11/14/20 at 1200, Until 11/18/20 at 1314, Administer flushes and check residuals [...] Austin RN) 0004 (Given - Provider: Amelia Mora, SWETHA)0604 [...] Routine 0845 (Given - Provider: Deysi Austin RN)212 (Given - Provider: Deysi Austin RN) 0959 (Given - Provider: Mike oLrenzo RN)2118 (Given - Provider: Ten Dove RN) 0809 (Given - Provider: Eliane Lynch RN) heparin (porcine) (5,000 units/1 mL) subcutaneous injection 5,000 Units 5,000 Units, Subcutaneous, EVERY 8 HOURS SCHEDULED, First dose (after last modification) on Thu10/30/20 at 1700, Until Discontinued, Routine 0615 (Given - Provider: Ten Dove RN)1427 (Given - Provider: Tuyet Oliveira RN)2129 (Given - Provider: Deysi Austin RN) 06 (Given - Provider: Amelia Mora RN)143 (Given - Provider: Mike Lorenzo RN)2118 (Given - Provider: Ten Dove RN) 0518 [...] hands 0845 (Given - Provider: Deysi Austin RN)2129 (Given - Provider: Deysi Austin RN) 1000 [...] 1818 (New Bag - Provider: Deysi Austin, SWETHA) 0604 (Stopped - Provider: Amelia Mora RN) [...] Intravenous, EVERY 8 HOURS PRN, Starting on 11/06/20 at 1156, Until Thu11/20/20 at 1230, Nausea sodium chloride 0.9 % (flush) flush 5-20 mL 5-20 mL, Intravenous, EVERY 1 MIN PRN, Starting on 10/27/20 at 0617, Until Tu11/20/20 at 1230, flush, Flush pertains to all indwelling lines. Flush per protocol found in the job aid using the link provided on this medication record., Recovery (Recovery-Hospital Unit), Routine tiZANidine (Zanaflex) tablet 4 mg 4 mg, Oral, 3 TIMES DAILY PRN, Starting on Thu11/16/20 at 1241, Until Thu11/20/20 at 1230, Muscle spasms, Routine 0010 (Given - Provider: Amelia oMra, RN)1748 (Given - Provider: Mike Lorenzo, SWETHA) traZODone (Desyrel) tablet 50 mg 50 mg, Oral, NIGHTLY PRN, Starting on Thu11/18/20 at 0724, Until Thu11/20/20 at 1230, Sleep, Routine 2123 (Given - Provider: Deysi Austin, SWETHA) 2235 (Given - Provider: Natalie Bailey RN) Linked [...] documented as of this encounter Care Teams Finisher Cold Rolling Relationship Specialty Start Date End [place] [address] PCP - General Family Medicine 07/01/18 08/21/21 documented as of this encounter
--- OUTSIDE RECORDS SUMMARY | 2024-11-04 00:29 | XMS_ITS | Encounter Summary ---
[place] [address] Care Team Providers Care Die Cleaner Name Role Phone Rayna Pino APRN Primary Care Provider [phone] Reason for Visit * Auth/Cert Specialty Diagnoses / Procedures Referred By Contac t Referred To Contact Diagnoses Cervical spine fracture Hypothermia, initial encounter Alcoholic intoxication without complication Closed displaced fracture of sixth cervical vertebra, unspecified fracture morphology, initial encounter Trauma Alert Procedures EMERGENCY IPI Referral ID Status Reason Start Date Expiration Date Visits Re quested Visits Authorized [id number] 1 1 Encounter Details Date Type Department Care Team (Late st Contact Info) Description 11/05/2020 12:40 PM EST Anesthesia [place] [address] Eduardo Swan MD [facility] [address] [place] [address] Piero Horton CRNA [facility] [place] [address] Anesthesia Record Procedure Summary Procedure Name Responsible [...] cephalic vein (lateral side of arm), left; newi-jaj-eetjpx catheter system; 20 gauge; LP; tolerated well; 0; 08/07/21 (LDA Cleanup utility RA#[id number]); 1650 (LDA Cleanup utility RA#[id number]) 10/29/20 0500 by Karen Driver RN 08/07/21 1650 by Steve Campos (RETIRED) PICC Line - Double Lumen 11/03/20; 1219; basilic vein (medial side of arm), right; pressure injectable catheter ([id number]); 5 Fr; 37 cm; placement verified by x-ray; CCampRNVAS; distraction, intradermal injection; 37 cm recovered; 11/16/20; 1555 11/03/20 1219 by Angely Alonzo RN 11/16/20 1555 by Justus Ballard RN Enterostomy Tube 11/05/20; 0204; PEG (percutaneous endoscopic gastrostomy); LUQ (left upper quadrant); feeding; 20 Faroese ; 03/17/24; 1606 (not present upon assessment) [...] Procedure Summary Date: 11/05/20 Room / Location: [address] MAIN OR Anesthesia Start: 1240 Anesthesia Stop: 1330 Procedure: ENDOSCOPY W DIRECTED PLACEMENT PERCUTANEOUS GASTROSTOMY TUBE-PEG (WRVU 3.66) (N/A Abdomen) Diagnosis: (dysphagia) Surgeon: Yoel Medellin MD Responsible Provider: Eduardo Swan MD Anesthesia Type: general ASA Status: 3 All Anesthesia Providers: Anesthesiologist: Eduardo Swan MD PRODUCT TRANSFER PUMPER: Piero Horton CRNA Vitals Value Taken Time BP 119/63 11/05/20 1415 Temp 36.8 ??C (98.2 ??F) 11/05/20 1400 Pulse 54 11/05/20 1415 Resp 20 11/05/20 1415 SpO2 94 % 11/05/20 1420 Pain Level 3 11/05/20 1400 Vitals shown include unvalidated device data. Patient Location: PACU/[facility] Level of Consciousness: Awake and Alert Pain [...] *) performed by Robbin Tong MD at [facility] MAIN OR ??? PRO APPLY/REMOVE CRANIAL FIX DEV N/A 10/27/2020 PLACEMENT-CRANIAL TONGS (INCLUDING REMOVAL) (WRVU 4) performed by Robbin Tong MD at [facility] JOSIANE ??? PRO AUTOGRAFT SPINE SURGERY LOCAL FROM SAME INCISION N/A 10/27/2020 AUTOGRAFT FOR SPINE SURGERY ONLY, SAME INCISION (WRVU *) performed by Robbin Tong MD at [facility] MAIN OR ??? PRO CERV FUSN, BELOW C2, POST TECH Midline 10/27/2020 @ARTHRODESIS, POSTERIOR CERVICAL SPINE (WRVU 17.4) performed by Robbin Tong MD at [facility] MAIN OR ??? PRO OPEN POST TREAT CERV VERT FX, 1 LVL N/A 10/27/2020 @OPEN TREATMENT &/OR REDUCTION VERTEBRAL FX., CERVICAL (WRVU 20.84) performed by Rosa Tong MD at [facility] MAIN OR ??? PRO POSTERIOR SEGMENTAL INSTRUMENTATION 3-6 VRT SEG N/A 10/27/2020 POST SPINAL INSTRUMENTATION, 3-6 VERTEBRA, NON SEGMENTAL (WRVU 12.56) performed by Robbin Tong MD at [facility] MAIN OR ??? PRO SPINE FUSN, POST TECH, EA ADDNL SGMT N/A 10/27/2020 ARTHRODESIS, POSTERIOR VERTEBRAL EA.ADD. SEGMENT (WRVU 6.43) performed by Robbin Tong MD at [facility] MAIN OR Social History Tobacco Use [...] 3 general, with a(n) intravenous induction Very [id number] 55-y male with a history of Alcohol [...] risks discussed with patient. Plan discussed with PRODUCT TRANSFER PUMPER. PAT Clinic Note documented in this encounter [...] mg documented in this encounter Care Teams Die Cleaner Relationship Specialty Start Date End [place] [address] PCP - General Family Medicine 07/01/18 08/21/21 documented as of this encounter
--- OUTSIDE RECORDS SUMMARY | 2024-11-04 00:31 | XMS_ITS | Encounter Summary ---
Author Organization [facility] [place] [address] Care Team Providers Care Assistant Professor Of English Name Role Phone Rayna Pino APRN Primary Care Provider [phone] Reason for Visit * Auth/Cert Specialty Diagnoses / Procedures Referred By Contac t Referred To Contact Diagnoses Cervical spine fracture Hypothermia, initial encounter Alcoholic intoxication without complication Closed displaced fracture of sixth cervical vertebra, unspecified fracture morphology, initial encounter Trauma Alert Procedures EMERGENCY IPI Referral ID Status Reason Start Date Expiration Date Visits Re quested Visits Authorized [id number] 1 1 Encounter Details Date Type Department Care Team (Late st Contact Info) Description 10/27/2020 8:08 AM EST Anesthesia Event [place] [address] Mariana Rojas MD [facility] DR [place] [address] Piero Ospina MD Anesthesia Record Procedure Summary Procedure Name [...] Procedure Summary Date: 10/27/20 Room / Location: [facility] MA[facility] OR Anesthesia Start: 807 Anesthesia Stop: 1308 Procedures: @ARTHRODESIS, POSTERIOR CERVICAL SPINE (WRVU 17.4) [...] All Anesthesia Providers: Anesthesiologist: Mariana Rojas MD ASSOCIATE THEATRE PROFESSOR: Luz Razo CRNA Vitals Value Taken Time [...] Consent: Plan discussed with resident, attending and ASSOCIATE THEATRE PROFESSOR. PAT Clinic Note documented in this encounter [...] mg/mL bolus injection (Anesthesia) PRN, Starting on 12/26/20 at 0812, Until 10/27/20 at 1310, Anesthesia [...] mg documented in this encounter Care Teams Assistant Professor Of English Relationship Specialty Start Date End Date Rayna Pino, [place] [address] PCP - General Family Medicine 07/01/18 08/21/21 documented as of this encounter
--- OUTSIDE RECORDS SUMMARY | 2024-11-04 00:31 | XMS_ITS | Encounter Summary ---
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 IPR,CRC working on dispo plan Status: Floor Incidental Findings: - Nonspecific small lytic foci within the iliac bones. [] Incidental Findings Form Completed Deisy Diamond, [place] 11/14/2020 Trauma pager [phone] Associated attestation - Yoel Medellin MD - [...] Samuel Hernandez - 11/14/2020 2:59 PM EST Meter/Relay Technician Encounter Note Patient Name: Bruce Velasquez Jr. : [id number] MR#: [id number] Admit Date: 10/26/2020 10:56 PM Hospital Day 19 days Narrative: Visited to introduce and assess acceptance of Meter/Relay Technician services. Pt was not available and I will visit an other time. Assessment: Intervention and Outcome: Follow-up: Time in Direct Care: Samuel Hernandez 11/14/2020 * Zabrina Disla SLP - 11/14/2020 10:48 AM EST Speech Therapy Note Patient Profile: Bruce Velasquez Jr.??is a 55 y.o.??male??found down on 10/26 and taken to [facility] where he was hypotensive and bradycardic. Trauma workup revealed a C6/7 jumped facet injury. ??He was transferred to for further management??and is s/p open reduction C6-7 bilateral facet dislocation, C4-T2 PSIF??10/27.??FIBER TECHNICIAN following for dysphagia management.?? Interval History: Pt [...] Pt was seen today for a follow-up FIBER TECHNICIAN visit. Pt demonstrates an interval improvement inswallow [...] Speech Language Pathology: 20 Zabrina Disla MS, CCC-FIBER TECHNICIAN Inpatient Speech Pathologist Pager #[phone] * Radha Florez, RD - 11/14/2020 10:12 [...] No Injury Device Sites: O2 sat monitor, [place] J/cervical collar, AFO/Christiano boots, IV sites Other Sites: (PEG) Relevant medications: liquid tylenol q6h, dulcolax, colace, lactobacillus Last Bowel Movement: 11/13/20(Pt reports PT cleaned him up) Admit Weight: 92.8 kg Estimated body mass index is 28.35 kg/m?? as calculated from the following: Height as of this encounter: 188 cm (6' 2.02). Weight as of this encounter: 100.2 kg (220 lb 14.4 oz). [place] Body Weight: 86.3 kg Usual Body Weight: n/a Wt Readings from Last 10 Encounters: 10/31/20 100.2 kg (220 lb 14.4 oz) 01/16/12 90.7 kg (200 lb) Assessment: Estimated needs: Calories: 1965-0862 kcal (20-25 kcal/kg) Protein: 129 grams (1.5g/kg [...] while inpatient [address]HA FL[address]Z [address] Pager #: [phone] * Sunil Liliane Valerie, PT - 11/14/2020 9:16 AM Ijeoma DUMONT Rec: acute SCI rehab Physical Therapy Note Treatment Number PT: 10 Patient profile: Bruce Velasquez Jr.??is a 55 y.o.?male??found down on 10/26 and taken to [facility] where he was hypotensive and bradycardic. 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 Pt taken to inpatient rehab gym [...] plan as stated. Time IN / OUT: 6988-7038 Total Evaluation Minutes, Physical Therapy: 63(x4 TEF) Liliane Barber PT Pager: [phone] Physical Therapy Inpatient Rehabilitation Department * Rosalba Neumann RN - 11/14/2020 3:23 AM EST OUTCOME EVALUATION NOTE: OUTCOME SUMMARY: Pt A&O, neuro unchanged. VSS on RA. [place] J collar in place, care completed. 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, complete, C8 and below Rapid Covid19 PCR resulted @ 22:58 hours on 10/26/2020; [place] Patient plan of care discussed in multidisciplinary [...] as possible Discharge planning to date: OCM FLAME ANNEALING MACHINE SETTER involved with assisting patient's daughter with insurance coverage; disability; coping/emotional support Rehab referrals placed and currently under review Current Referral in place: [facility] (11/12/2020); [facility] admissions team with clinical questions snap chatted [...] y.o.?male??found down on 10/26 and taken to [facility] where he was hypotensive and bradycardic. 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 Time IN / OUT: 7615-8828 Total Evaluation Minutes, Physical Therapy: 77(x5 TEF) Liliane Barber PT Pager: [phone] Physical Therapy Inpatient Rehabilitation Department * ChapitoJeronimo romeo Ruth, OT - 11/13/2020 11:20 AM EST Occupational Therapy Treatment Note Treatment Number OT: 8 Patient Dx: Bruce Velasquez Jr.??is a 55 y.o.?male??found down on 10/26 and taken to [facility] where he was hypotensive and bradycardic. Trauma workup revealed a C6/7 jumped facet injury. ??He was transferred to for further management??and is s/p open reduction C6-7 bilateral facet dislocation, C4-T2 PSIF??10/27. Social History: Patient lives??alone in a 1st floor apartment with 2 steps to enter.?? DME:??none Baseline ADL/Mobility:??fully independent, works FT for a [employer].?? Precautions/Special Considerations: fall risk; high risk for skin breakdown; lac courte oreilles J at all times; can maintain own [...] ~ 45 degrees, pt initially participating w/ [place] assist w/ RUE, elbow supported on pillows; however, following cursory shave, pt requested TotalA for thoroughness ?? Pt TotalA for doff/don of cervical collar seated in w/c ?? Pt MaxA for doff/don of hospital gown and sponge bath of neck/facial area following shaving ?? Pt left using blue Biscoot head phones to control phone and call [...] don in AM prior to transfer to [facility] Occupational Therapy Goals: To be achieved by??11/16/20 [...] Minutes, Occupational Therapy: 72(sc x 5) Pager: [phone] Jeronimo Lawson OT Occupational Therapy Rehabilitation Department [...] in 1200 ml. . Discussed with Trauma ([phone]). TPN Medication Recent History (Show up to 3 orders; newest on the left. Changes between the two most recent orders are indicated.) Start date and time 11/13/2020 1800 11/12/2020 1800 11/09/2020 1800 TPN Adult [[id number]] TPN Adult [[id number]] TPN Adult [[id number]] Order Status Active Discontinued Last Admin New Bag at 11/12/2020 1813 by Lina Bridges RN New Bag at 11/11/2020 1840 by Angelia Ward RN Additives trace elements Zn-Cu-Mn-Se 1 mL 1 mL 1 mL folic acid 1,000 mcg 1,000 mcg 1,000 mcg ascorbic acid (vitamin C) 100 mg 100 mg 100 mg Vit D4-S6-A2-B5-B6 (B Complex) 1 mL 1 mL 1 [...] encounter: 100.2 kg (220 lb 14.4 oz). [place] Body Weight: 86.3 kg Usual Body Weight: Wt Readings from Last 10 Encounters: 10/31/20 100.2 kg (220 lb 14.4 oz) 01/16/12 90.7 kg (200 lb) Assessment: Estimated needs: Calories: 6380-5107 kcal (20-25 kcal/kg) Protein: 200 grams (2g/kg ) Nutrition Focused Physical Exam (NFPE): Not performed Nutrition intake and intake history/Interview: n/a Protein-calorie Malnutrition: Not identified (MASOUD Shields J Parenteral Enteral Nutr. 2012 March; 36(3): 273-83) Nutrition to continue to follow up while inpatient [address] Pager #: [phone] * Nathaniel Carin Nel FLAME ANNEALING MACHINE SETTER - 11/13/2020 9:58 AM EST Met with the patient to complete a disability form sent by his daughter. 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 Plan: Traumatic Injuries: Injury Intervention Follow-up [...] qHS Dysphagia - PEG, TF (held) - FIBER TECHNICIAN 11/08: dysphagia soft, nectar thick liquids Resolved in hospital issues: Chronic health conditions: Fluids/Electrolytes: tolerating PO Diet: per FIBER TECHNICIAN Activity status: Activity As Tolerated Spine status: Orthopedics Pulmonary toilet: Encourage frequent mobilization, IS use, titrate O2 >90 DVT PPX: SCDs, SQ Heparin q8hrs GI PPX: PPI Lines/Tubes/Drains: PIVDayneey 10/26 for neurogenic bladder, PEG Consults (Please see business information consultant notes): PT/OT, Ortho, Psych, FIBER TECHNICIAN, ORTHO Dispo: IPR,CRC working on dispo plan Status: Floor Incidental Findings: - Nonspecific small lytic foci within the iliac bones. [] Incidental Findings Form Completed Mikayla Loomis MD 11/13/2020 Trauma pager [phone] Associated attestation - Yoel Medellin MD - [...] sxns out. Pt remains on RA. * East KillinglyLiliane, PT - 11/12/2020 5:53 PM ESTSummary: DC Rec inpatient acute SCI rehab Physical Therapy Note Treatment Number PT: 8 Patient profile: Bruce Velasquez Jr.??is a 55 y.o.?male??found down on 10/26 and taken to [facility] where he was hypotensive and bradycardic. 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 Time IN / OUT: 9095-4880 Total Evaluation Minutes, Physical Therapy: 48(x3 TEF) Liliane Barber PT Pager: [phone] Physical Therapy Inpatient Rehabilitation Department * Saritha Louie RN - 11/12/2020 4:05 PM EST RN-INVENTORY MANAGEMENT SPECIALIST, Office of Care Management Saritha Louie RN,BSN, ACM Pager # [phone] e-DH reviewed. Patient discussed daily in interdisciplinary rounds. Patient worked with rehab today with family on the phone. Patient has discussed rehab with his boss and Has requested to expand referral to: [place] [address] alteration specialist notified. Patient has wireless headset and phone but does need some assist with technology. FLAME ANNEALING MACHINE SETTER/Airport Operations Manager remains available as needed for coordination of [...] encounter: 100.2 kg (220 lb 14.4 oz). [place] Body Weight: 86.3 kg Usual Body Weight: n/a Wt Readings from Last 10 Encounters: 10/31/20 100.2 kg (220 lb 14.4 oz) 01/16/12 90.7 kg (200 lb) Assessment: Estimated needs: Calories: 1886-3861 kcal (20-25 kcal/kg) Protein: 129 grams (1.5g/kg [...] while inpatient [address]HA [address] Pager #: [phone] * Jeronimo Lawson OT - 11/12/2020 2:24 PM EST Occupational Therapy Treatment Note Treatment Number OT: 7 Patient Dx: Bruce Velasquez .??is a 55 y.o.?male??found down on 10/26 and taken to [facility] where he was hypotensive and bradycardic. Trauma workup revealed a C6/7 jumped facet injury. ??He was transferred to for further management??and is s/p open reduction C6-7 bilateral facet dislocation, C4-T2 PSIF??10/27.? Social History: Patient lives??alone in a 1st floor apartment with 2 steps to enter.?? DME:??none Baseline ADL/Mobility:??fully independent, works FT for a [employer].?? Precautions/Special Considerations: fall risk; high risk for skin breakdown; lac courte oreilles J at all times; can maintain own [...] to release item and use functional tenodesis grease monkey in RUE w/ assist from his LUE [...] ?? Pt demonstrating increased understanding of tenodesis grease monkey in RUE as pt able to drop and meat pickler ?? UE Right Left Strength Strength Shoulder [...] RUE as pt able to release and meat pickler built up ADL tool w/ assist from [...] Minutes, Occupational Therapy: 45(sc x 3) Pager: [phone] Jeronimo Lawson OT Occupational Therapy Rehabilitation Department [...] speak with daughter today at 1:30pm via [place] per social work. Plan: Traumatic Injuries: Injury [...] qHS Dysphagia - PEG, TF (held) - FIBER TECHNICIAN 11/08: dysphagia soft, nectar thick liquids Resolved in hospital issues: Chronic health conditions: Fluids/Electrolytes: tolerating PO Diet: per FIBER TECHNICIAN Activity status: Activity As Tolerated Spine status: Orthopedics Pulmonary toilet: Encourage frequent mobilization, IS use, titrate O2 >90 DVT PPX: SCDs, SQ Heparin q8hrs GI PPX: PPI Lines/Tubes/Drains: PIV, Beck 10/26 neurogenic bladder, PEG Consults (Please see business information consultant notes): PT/OT, Ortho, Psych, FIBER TECHNICIAN, ORTHO Dispo: IPR,CRC working on dispo plan Status: Floor Incidental Findings: - Nonspecific small lytic foci within the iliac bones. [] Incidental Findings Form Completed Mikayla Loomis MD 11/12/2020 Trauma pager [phone] Associated attestation - Yoel Medellin MD - [...] Diet:Dysphagia soft Nutrition Recommendations: Cyclic hypo-caloric TPN [id number] calories from 200 g protein and 100 g CHO in 1680 ml. Decreased magnesium by 8 mEq to 10 mEq.. Discussed with Trauma ([id number]). TPN Medication Recent History (Show up to 3 orders; newest on the left. Changes between the two most recent orders are indicated.) Start date and time 11/12/2020 1800 11/09/2020 1800 11/08/2020 1800 TPN Adult [[id number]] TPN Adult [[id number]] TPN Adult [[id number]] Order Status Active Active Last Admin New Bag at 11/11/2020 1840 by Angelia Ward RN New Bag at 11/08/2020 1810 by Roselia Paez RN Additives trace elements Zn-Cu-Mn-Se 1 mL 1 mL 1 mL folic acid 1,000 mcg 1,000 mcg 1,000 mcg ascorbic acid (vitamin C) 100 mg 100 mg 100 mg Vit E3-R8-I6-B5-B6 (B Complex) 1 mL 1 mL 1 [...] O2 sat monitor, IV sites, beck, SCD's/venodynes, [place] J/cervical collar Other Sites: PEG Relevant medications: folic acid, colace, MVI w minerals, Kphos, senna, thiamine Last Bowel Movement: 11/11/20 Admit Weight: 92.8 kg Estimated body mass index is 28.35 kg/m?? as calculated from the following: Height as of this encounter: 188 cm (6' 2.02). Weight as of this encounter: 100.2 kg (220 lb 14.4 oz). [place] Body Weight: 86.3 kg Usual Body Weight: Wt Readings from Last 10 Encounters: 10/31/20 100.2 kg (220 lb 14.4 oz) 01/16/12 90.7 kg (200 lb) Assessment: Estimated needs: Calories: 8644-6096 kcal (20-25 kcal/kg) Protein: 200 grams (2g/kg ) Nutrition Focused Physical Exam (NFPE): Not performed Nutrition intake and intake history/Interview: n/a Protein-calorie Malnutrition: Not identified (Cornelius, JPEN J Parenteral Enteral Nutr. 2011; 36(3): 273-83) Nutrition to continue to follow up while inpatient [address] Pager #: [phone] * Iram Barrera RN - 11/11/2020 3:58 [...] to dysphagia soft with nectar thick per FIBER TECHNICIAN - duonebs changed to PRN Subjective: Reports [...] qHS Dysphagia - PEG, TF (held) - FIBER TECHNICIAN 11/08: dysphagia soft, nectar thick liquids Resolved in hospital issues: Chronic health conditions: Fluids/Electrolytes: tolerating PO Diet: per FIBER TECHNICIAN Activity status: Activity As Tolerated Spine status: Orthopedics Pulmonary toilet: Encourage frequent mobilization, IS use, titrate O2 >90 DVT PPX: SCDs, SQ Heparin q8hrs GI PPX: PPI Lines/Tubes/Drains: PIV, Beck 10/26 neurogenic bladder, PEG Consults (Please see business information consultant notes): PT/OT, Ortho, Psych, FIBER TECHNICIAN, ORTHO Dispo: IPR,CRC working on dispo plan Status: Floor Incidental Findings: - Nonspecific small lytic foci within the iliac bones. [] Incidental Findings Form Completed KAN Maldonado 11/11/2020 Trauma pager [phone] Attending Addendum I have seen and examined [...] Bolden MD [phone] * Temo Ani Neumann, FLAME ANNEALING MACHINE SETTER - 11/11/2020 1:55 PM EST FLAME ANNEALING MACHINE SETTER assisting with facetime this afternoon with daughter at 3:30 Thursday FLAME ANNEALING MACHINE SETTER please assist pt with facetime call at 1:30. See notes Office of Care Management Float/Weekend Telephonic Rn Ani Zamorah, LORENA Pager [phone] * Aamir John ASSISTANT EDITOR - 11/11/2020 8:17 AM EST Respiratory Therapy NIV Note NIV Settings: RA NIV Measurements: Resp: 16 SpO2: 97 % Laboratory: Lab Results Component Value Date/Time PHART 7.43 10/30/2020 03:19 PM [id number] 36 10/30/2020 03:19 PM PO2ART 64 (L) 10/30/2020 03:19 PM [id number] 23.4 10/30/2020 03:19 PM BEART -0.8 10/30/2020 [...] remains unchanged with sensory and motor losses. [place];J on and aligned, collar care completed 0430. [...] y.o.??male??found down on 10/26 and taken to [facility] where he was hypotensive and bradycardic. Trauma workup revealed a C6/7 jumped facet injury. ??He was transferred to for further management??and is s/p open reduction C6-7 bilateral facet dislocation, C4-T2 PSIF??10/27.??FIBER TECHNICIAN following for dysphagia management.?? Interval History: Pt advanced onto clear liquid diet this AM by team. Subjective: Pt seen briefly as FLAME ANNEALING MACHINE SETTER attempting to set up iPad for Zoom [...] otherwise unchanged. Bolus Presentation(s): ?? Deferred given FLAME ANNEALING MACHINE SETTER visit Education: Reviewed that current diet restriction is due to concern for ileus rather than dysphagia. Assessment: Pt was seen today for a follow-up FIBER TECHNICIAN visit. Clarified with pt that some of current diet restrictions are a result of concern for resolving ileus. FIBER TECHNICIAN will f/u next week as diet is further liberalized by team. Will plan to see pt on . Please do not advance solids past dysphagia soft, or liquids past nectar thick until swallow reassessment occurs. Diagnosis: mild oropharyngeal dysphagia Recommendations: Diet: Dysphagia soft, [place] thick liquids PO medications: IV or other [...] Speech Language Pathology: 8 Zabrina Disla MS, [facility]-FIBER TECHNICIAN Inpatient Speech Pathologist Pager #[phone] * Ani Plascencia MSW - 11/10/2020 2:14 PM EST FLAME ANNEALING MACHINE SETTER met with pts daughter and pts mother in [facility] today. They brought the following for pt: -Ipad plus licensing court magistrate -Blue tooth head phone plus licensing court magistrate -Two hats -Pts personal phone pls 2 phone chargers -Stylus pen so pt can hold and type -Photo collage -Phone licensing court magistrate tower -Numerous devices to hold in hand to work it out Over the next few hours: FLAME ANNEALING MACHINE SETTER cleaned belongings, moved around belongings in room so they could be easier to get for pt, put sponge around stylus pen for pt to grab, put hat on pt as he was cold, requested pt get face shaved as it is uncomfortable and tested new technology out. FLAME ANNEALING MACHINE SETTER assisted pt and daughter with a zoom [...] tech thiago Office of Care Management Float/Weekend Telephonic Rn LORENA Vieira Pager [phone] * Aamir John, ASSISTANT EDITOR - 11/10/2020 10:07 AM EST Respiratory Therapy NIV Note NIV Settings: RA NIV Measurements: Resp: 18 SpO2: 96 % Laboratory: Lab Results Component Value Date/Time PHART 7.43 10/30/2020 03:19 PM [id number] 36 10/30/2020 03:19 PM PO2ART 64 (L) 10/30/2020 03:19 PM [id number] 23.4 10/30/2020 03:19 PM BEART -0.8 10/30/2020 [...] below. Electronically signed by: Lili Burgos MD, [facility] ([phone]), at 11/05/2020 11:58 AM Current Medications: Skin [...] Intake/Output Summary (Last 24 hours) at 11/10/2020 0920 Last data filed at 11/10/2020 0823 Gross [...] qHS Dysphagia - PEG, TF (held) - FIBER TECHNICIAN 11/08: dysphagia soft, nectar thick liquids (once [...] 10/26 neurogenic bladder, PEG Consults (Please see business information consultant notes): PT/OT, Ortho, Psych, FIBER TECHNICIAN, ORTHO Dispo: IPR,CRC working on dispo plan Status: Floor Incidental Findings: - Nonspecific small lytic foci within the iliac bones. [] Incidental Findings Form Completed KAN Maldonado 11/10/2020 Trauma pager [phone] Attending Addendum I have seen and examined [...] Mata RN - 11/09/2020 5:28 PM EST RN-INVENTORY MANAGEMENT SPECIALIST, Office of Care Management Saritha Louie RN,BSN, ACM Pager # [phone] e-DH reviewed. Patient discussed daily in interdisciplinary [...] help him. Luz has previously worked as MARRIAGE PERFORMER and willing to learn his care. Ultimately they will be looking for some personal driver assistance resources and patient says he has [...] are and the discharge planning process at [facility]. ?? I reviewed the criteria for acute level of rehab with the patient.. ?? The patient/daughter have been provided a list of facilities within their preferred geographic area.. ?? The patient has requested referrals to: 1. [facility] Acute Rehabilitation and Sub-Acute (Swing) Rehab Levels of Care [address] [place] [id number] [address] [address] PHONE: [phone] FAX: [phone] 3.[facility], [facility] [place] [address] ?? Expected date of discharge: estimated 1.13 or when his nutritional plan/ bowel function ready. Patient is excellent rehab candidate - he has supportive family and will be able to participate in rehab and organizing home modifications. He will have his commercial insurance continued through his [facility] [place] and has both short and [employer] disability and some financial resources he is willing to use on his care. They also have a community member who is wheelchair dependent living a very productive life according to both patient and his daughter Note routed to Tugboat Engineer who will communicate referrals to facilities and provide any required information. FLAME ANNEALING MACHINE SETTER/Airport Operations Manager remains available as needed for coordination of [...] on TPN for now. - Cleared by FIBER TECHNICIAN for dysphagia soft and nectar thick diet. [...] Sites: O2 sat monitor, IV sites, SCD's/venodynes, [place] J/cervical collar, beck, AFO/Christiano boots Other Sites: PEG Relevant medications: dulcolax, folic acid, thiamine Last Bowel Movement: 11/08/20 Admit Weight: 92.8 kg Estimated body mass index is 28.35 kg/m?? as calculated from the following: Height as of this encounter: 188 cm (6' 2.02). Weight as of this encounter: 100.2 kg (220 lb 14.4 oz). [place] Body Weight: 86.3 kg Usual Body Weight: n/a Wt Readings from Last 10 Encounters: 10/31/20 100.2 kg (220 lb 14.4 oz) 01/16/12 90.7 kg (200 lb) Assessment: Estimated needs: Calories: 8848-6166 kcal (20-25 kcal/kg) Protein: 129 grams (1.5g/kg IBW) Nutrition Focused Physical Exam (NFPE): Not performed Nutrition intake and intake history/Interview: n/a Barriers to tolerance: NPO for ileus Protein-calorie Malnutrition: Not identified (Cornelius, JPEN J Parenteral Enteral Nutr. 2011; 36(3): 273-83) Nutrition to continue to follow up while inpatient RADHA FLOREZ RD Pager #: [phone] * Radha Bolden MD - 11/09/2020 11:32 [...] Value Date/Time PHART 7.43 10/30/2020 03:19 PM FHT4UBH 36 10/30/2020 03:19 PM PO2ART 64 (L) 10/30/2020 03:19 PM [id number] 23.4 10/30/2020 03:19 PM BEART -0.8 10/30/2020 [...] for intervention: TPN Nutrition Recommendations: Hypo-caloric TPN [id number] calories from 200 g protein and 100 g CHO in 2400 ml. Decreased potassium by 10 mEq to 30 mEq and decreased magnesium by 6 mEq to 18 mEq.. Discussed with Trauma (4498). TPN Medication Recent History (Show up to 3 orders; newest on the left. Changes between the two most recent orders are indicated.) Start date and time 11/09/2020 1800 11/08/2020 1800 11/08/2020 1200 TPN Adult [[id number]] TPN Adult [[id number]] TPN Adult [[id number]] Order Status Active Active Last Admin New Bag at 11/08/2020 1810 by Roselia Paez, RN Additives trace elements Zn-Cu-Mn-Se 1 mL 1 mL 1 mL folic acid 1,000 mcg 1,000 mcg 1,000 mcg ascorbic acid (vitamin C) 100 mg 100 mg 100 mg Vit P1-Z8-G6-B5-B6 (B Complex) 1 mL 1 mL 1 [...] Sites: O2 sat monitor, IV sites, SCD's/venodynes, [place] J/cervical collar, beck, AFO/Christiano boots Other Sites: PEG Relevant medications: folic acid, colace, MVI w minerals, Kphos, senna, thiamine Last Bowel Movement: 11/08/20 Admit Weight: 92.8 kg Estimated body mass index is 28.35 kg/m?? as calculated from the following: Height as of this encounter: 188 cm (6' 2.02). Weight as of this encounter: 100.2 kg (220 lb 14.4 oz). [place] Body Weight: 86.3 kg Usual Body Weight: Wt Readings from Last 10 Encounters: 10/31/20 100.2 kg (220 lb 14.4 oz) 01/16/12 90.7 kg (200 lb) Assessment: Estimated needs: Calories: 8872-6449 kcal (20-25 kcal/kg) Protein: 200 grams (2g/kg ) Nutrition Focused Physical Exam (NFPE): Not performed Nutrition intake and intake history/Interview: n/a Protein-calorie Malnutrition: Not identified (MASOUD Shields J Parenteral Enteral Nutr. 2012 March; 36(3): 273-83) Nutrition to continue to follow up while inpatient RADAMES CARTER RD Pager #: [phone] * Radha Bolden MD - 11/09/2020 10:02 AM EST Trauma Daily Progress Note ID/Mechanism of injury:55 y.o. Male admitted on 10/26/2020 following being found down for the management of Spinal injuries (Please see below box for a complete summary of injuries) 24 Hour Events: - clamping trial started this morning - FIBER TECHNICIAN cleared for dysphagia soft and nectar thick liquids yesterday, but keeping NPO for ileus Subjective: Pt with many questions about clamping trial this morning Wanted to know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 Phone Number [facility] [place] [address] * (ABNORMAL) Basic Metabolic Panel (non-fasting) (11/20/2020 12:40 AM EST) Glucose 98 65 - 199 mg/dL [facility] Comment:Diabetes: >=200 mg/d L plus symptoms Blood Urea Nitrogen 28(H) 10 - 20 mg/dL [facility] Creatinine 0.92 0.80 - 1.50 mg/dL [facility] Sodium 136 135 - 145 mmol/L [facility] Potassium 4.2 3.5 - 5.0 mmol/L [facility] Comment: Please note: ??Patients with WBC >100,000 may have falsely elevated Potassium levels. ??For accurate Potassium quantification in these patients send serum separator tube (gold top) for subsequent determinations. ??Contact the Clinical Chemistry Laboratory if there are any questions. Chloride 102 98 - 107 mmol/L [facility] Carbon Dioxide 24 22 - 31 mmol/L [facility] Anion Gap 10 5 - 15 mmol/L [facility] Calcium 9.1 8.5 - 10.5 mg/dL [facility] Est Glomerular Filtration Rate 95 >=60 mL/min/1. 73 m?? [facility] Comment: This patient? s estimated [...] In Lab Yoel Medellin MD CHEMISTRY ORDERABLES [facility] [place] [id number] * COVID-19 PCR (11/19/2020 11:06 AM EST) SARS-CoV-2 RNA (Rapid) Not Detected Not Detected [facility] Comment: This result should be [...] using the Simplexa COVID-19 Direct Assay by [employer] as authorized by the FDA issued Emergency [...] Pathology and Laboratory Medicine at [facility], certified under the Clinical Laboratory Improvement Amendments [...] fact sheets at the following FDA website: https://www.fda.gov/medical-devices/omjxfmoybnz-sgsuwwf-5241-qhdkw-91-sbfvghqas- use-a bflgglwzuhnjb-vhxnkwz-fznziru/atlmr-lkylbexmtgu-kkoc SARS-CoV-2 Source POWER LINEWORKER Swab MD [facility] Nasopharyngeal swab (specimen) 11/19/2020 11:06 AM EST 11/19/2020 11:38 AM EST Comment:Symptoms->Surveillan ce Narrative Resulting Agency Comment Spec In Lab Thom Lemon MD MICROBIOLOGY - GENER AL ORDERABLES [facility] [place] [address] * Differential, Automated (11/17/2020 12:11 AM EST) Neutrophil % 67.1 % [facility] Neutrophil Absolute 4.24 1.70 - 6.10 x10(3)/[facility] Lymph % 20.5 % [facility] Lymphocytes Abs 1.3 0.9 - 3.2 x10(3)/[facility] Monocyte % 8.8 % [facility] Monocyte Abs 0.6 0.3 - 0.9 x10(3)/[facility] Eos % 2.7 % [facility] Eosinophils Abs 0.2 0.0 - 0.4 x10(3)/[facility] Basophil % 0.3 % [facility] Baso Absolute 0.0 0.0 - 0.1 x10(3)/[facility] Immature Gran % 0.60 % [facility] Comment: Immature granulocytes(IG's)percentage and absolute count will include metamyelocytes, myelocytes, and promyelocytes. Blood smears from CBCs yielding IG's will be scanned manually for concordance. If this scan disagrees with the automated IG or if promyelocytes are noted, a manual differential will be performed. Immature Gran Absolute 0.04 0.00 - 0.04 x10(3)/[facility] Blood specimen (specimen) 11/17/2020 12:11 AM EST 11/17/2020 12:38 AM EST Narrative Resulting Agency Comment Spec In Lab Norberto Gonzalez MD HEMATOLOGY ORDERABLE S [facility] [place] [address] * (ABNORMAL) Hemogram (11/17/2020 12:11 AM EST) White Blood Cell 6.3 4.0 - 9.5 x10(3)/mc L [facility] Red Blood Cell 3.59(L) 4.58 - 5.54 x10(6)/mc L [facility] Hemoglobin 10.9(L) 13.7 - 16.5 gm/dL [facility] Hematocrit 33.2(L) 40.5 - 48.5 % [facility] Mean Cell Volume 92.5 82.9 - 93.1 [facility] Mean Cell Hemoglobin 30.4 27.5 - 32.1 pg [facility] Mean Cell Hemoglobin Concentration 32.8 32.0 - 35.7 gm/dL [facility] Platelet 223 145 - 357 x10(3)/mc L [facility] RDW Standard Deviation 42.6 36.0 - 45.0 [facility] RDW coefficient of variation 12.8 11.4 - 13.8 % [facility] Mean Platelet Volume 11.1 7.6 - 12.9 [facility] NRBC% auto 0.0 % [facility] NRBC Absolute 0.000 0.000 - 0.000 x10(3)/mc L [facility] Blood specimen (specimen) 11/17/2020 12:11 AM EST 11/17/2020 12:38 AM EST Narrative Resulting Agency Comment Spec In Lab Norberto Gonzalez MD HEMATOLOGY ORDERABLE S Performing Organization Address City/[facility]/ZIP Co de Phone Number [facility] [place] [address] * Phosphorus (11/17/2020 12:11 AM EST) Phosphorus 4.0 2.5 - 4.5 mg/dL [facility] Blood specimen (specimen) 11/17/2020 12:11 AM EST 11/17/2020 12:38 AM EST Narrative Resulting Agency Comment Spec In Lab Radha Bolden MD CHEMISTRY ORDERABLES Performing Organization Address City/[facility]/ZIP Co de Phone Number [facility] [place] [address] * Magnesium (11/17/2020 12:11 AM EST) Magnesium 0.77 0.69 - 1.07 mmol/L [facility] Blood specimen (specimen) 11/17/2020 12:11 AM EST 11/17/2020 12:38 AM EST Narrative Resulting Agency Comment Spec In Lab Radha Bolden MD CHEMISTRY ORDERABLES [facility] [place] [address] * (ABNORMAL) Basic Metabolic Panel (non-fasting) (11/17/2020 12:11 AM EST) Glucose 121 65 - 199 mg/dL [facility] Comment:Diabetes: >=200 mg/d L plus symptoms Blood Urea Nitrogen 31(H) 10 - 20 mg/dL [facility] Creatinine 0.92 0.80 - 1.50 mg/dL [facility] Sodium 137 135 - 145 mmol/L [facility] Potassium 4.0 3.5 - 5.0 mmol/L [facility] Comment: Please note: ??Patients with WBC >100,000 may have falsely elevated Potassium levels. ??For accurate Potassium quantification in these patients send serum separator tube (gold top) for subsequent determinations. ??Contact the Clinical Chemistry Laboratory if there are any questions. Chloride 103 98 - 107 mmol/L [facility] Carbon Dioxide 23 22 - 31 mmol/L [facility] Anion Gap 11 5 - 15 mmol/L [facility] Calcium 9.3 8.5 - 10.5 mg/dL [facility] Est Glomerular Filtration Rate 95 >=60 mL/min/1. 73 m?? [facility] Comment: This patient? s estimated [...] In Lab Radha Bolden MD CHEMISTRY ORDERABLES [facility] [place] [address] * XR PICC Placement Over 5 Years [...] ? Electronically signed by: Natalie Ann MD, [facility] ([phone]), at 11/16/2020 4:20 PM Narrative 11/16/2020 4:20 [...] below. Electronically signed by: Natalie Ann MD, [facility]([phone]), at 11/16/2020 4:20 PM Yoel Medellin MD [...] to the planned procedure. Hand Hygiene: The distribution field technician did perform hand hygiene prior to line insertion. Catheter type: PICC Lot number: [id number] Procedure Technique: Skin was prepped with chlorhexidine. [...] 12:31 AM EST) Neutrophil % 64.5 % [facility] Neutrophil Absolute 4.80 1.70 - 6.10 x10(3)/mc L [facility] Lymph % 23.5 % [facility] Lymphocytes Abs 1.8 0.9 - 3.2 x10(3)/mc L [facility] Monocyte % 7.9 % [facility] Monocyte Abs 0.6 0.3 - 0.9 x10(3)/mc L [facility] Eos % 2.7 % [facility] Eosinophils Abs 0.2 0.0 - 0.4 x10(3)/mc L [facility] Basophil % 0.5 % [facility] Baso Absolute 0.0 0.0 - 0.1 x10(3)/mc L [facility] Immature Gran % 0.90 % [facility] Comment: Immature granulocytes(IG's)percentage and absolute count will include metamyelocytes, myelocytes, and promyelocytes. Blood smears from CBCs yielding IG's will be scanned manually for concordance. If this scan disagrees with the automated IG or if promyelocytes are noted, a manual differential will be performed. Immature Gran Absolute 0.07(H) 0.00 - 0.04 x10(3)/mc L [facility] Blood specimen (specimen) 11/16/2020 12:31 AM EST 11/16/2020 12:38 AM EST Narrative Resulting Agency Comment Spec In Lab Norberto Gonzalez MD HEMATOLOGY ORDERABLE S Performing Organization Address City/State/[facility] Co de Phone Number [facility] [place] [address] * (ABNORMAL) Hemogram (11/16/2020 12:31 AM EST) White Blood Cell 7.4 4.0 - 9.5 x10(3)/mc L [facility] Red Blood Cell 3.59(L) 4.58 - 5.54 x10(6)/mc L [facility] Hemoglobin 10.9(L) 13.7 - 16.5 gm/dL [facility] Hematocrit 32.7(L) 40.5 - 48.5 % [facility] Mean Cell Volume 91.1 82.9 - 93.1 fL [facility] Mean Cell Hemoglobin 30.4 27.5 - 32.1 pg [facility] Mean Cell Hemoglobin Concentration 33.3 32.0 - 35.7 gm/dL [facility] Platelet 254 145 - 357 x10(3)/mc L [facility] RDW Standard Deviation 41.8 36.0 - 45.0 fL [facility] RDW coefficient of variation 12.7 11.4 - 13.8 % [facility] Mean Platelet Volume 11.0 7.6 - 12.9 fL [facility] NRBC% auto 0.0 % [facility] NRBC Absolute 0.000 0.000 - 0.000 x10(3)/mc L [facility] Blood specimen (specimen) 11/16/2020 12:31 AM EST 11/16/2020 12:38 AM EST Narrative Resulting Agency Comment Spec In Lab Norberto Gonzalez MD HEMATOLOGY ORDERABLE S Performing Organization Address City/[facility]/ZIP Co de Phone Number [facility] [place] [address] * Phosphorus (11/16/2020 12:31 AM EST) Phosphorus 4.4 2.5 - 4.5 mg/dL [facility] Blood specimen (specimen) 11/16/2020 12:31 AM EST 11/16/2020 12:38 AM EST Narrative Resulting Agency Comment Spec In Lab Radha Bolden MD CHEMISTRY ORDERABLES Performing Organization Address [facility] Co de Phone Number [facility] [place] [address] * Magnesium (11/16/2020 12:31 AM EST) Magnesium 0.78 0.69 - 1.07 mmol/L [facility] Blood specimen (specimen) 11/16/2020 12:31 AM EST 11/16/2020 12:38 AM EST Narrative Resulting Agency Comment Spec In Lab Radha Bolden MD CHEMISTRY ORDERABLES Performing Organization Address [facility] Co de Phone Number [facility] [place] [address] * (ABNORMAL) Basic Metabolic Panel (non-fasting) (11/16/2020 12:31 AM EST) Glucose 116 65 - 199 mg/dL [facility] Comment:Diabetes: >=200 mg/d L plus symptoms Blood Urea Nitrogen 30(H) 10 - 20 mg/dL [facility] Creatinine 0.99 0.80 - 1.50 mg/dL [facility] Sodium 136 135 - 145 mmol/L [facility] Potassium 4.1 3.5 - 5.0 mmol/L [facility] Comment: Please note: ??Patients with WBC >100,000 may have falsely elevated Potassium levels. ??For accurate Potassium quantification in these patients send serum separator tube (gold top) for subsequent determinations. ??Contact the Clinical Chemistry Laboratory if there are any questions. Chloride 104 98 - 107 mmol/L [facility] Carbon Dioxide 22 22 - 31 mmol/L [facility] Anion Gap 10 5 - 15 mmol/L [facility] Calcium 9.3 8.5 - 10.5 mg/dL [facility] Est Glomerular Filtration Rate 87 >=60 mL/min/1. 73 m?? [facility] Comment: This patient? s estimated [...] In Lab Radha Bolden MD CHEMISTRY ORDERABLES [facility] [place] [address] * XR Shoulder Left (Generic) (11/15/2020 7:01 [...] ? Electronically signed by: Eliane Stewart MD, [facility] ([phone]), at 11/15/2020 7:36 PM Narrative 11/15/2020 7:36 [...] below. Electronically signed by: Eliane Stewart MD, [facility]([phone]), at 11/15/2020 7:36 PM Yoel Medellin MD [...] ? Electronically signed by: Crys Joaquin MD, [facility] ([phone]), at 11/15/2020 3:57 PM Narrative 11/15/2020 3:57 [...] below. Electronically signed by: Crys Joaquin MD, [facility]([phone]), at 11/15/2020 3:57 PM Yoel Medellin MD [...] ? Electronically signed by: Tre Mendez MD, [facility] ([phone]), at 11/15/2020 3:08 PM Narrative 11/15/2020 3:08 [...] below. Electronically signed by: Tre Mendez MD, [facility]([phone]), at 11/15/2020 3:08 PM Yoel Medellin MD IMG DX ORDERABLES * (ABNORMAL) Differential, Automated (11/15/2020 2:18 AM EST) Neutrophil % 62.5 % [facility] Neutrophil Absolute 4.66 1.70 - 6.10 x10(3)/ L [facility] Lymph % 25.2 % [facility] Lymphocytes Abs 1.9 0.9 - 3.2 x10(3)/ L [facility] Monocyte % 8.6 % [facility] Monocyte Abs 0.6 0.3 - 0.9 x10(3)/ L [facility] Eos % 2.1 % [facility] Eosinophils Abs 0.2 0.0 - 0.4 x10(3)/[facility] Basophil % 0.7 % [facility] Baso Absolute 0.0 0.0 - 0.1 x10(3)/ L [facility] Immature Gran % 0.90 % [facility] Comment: Immature granulocytes(IG's)percentage and absolute count will include metamyelocytes, myelocytes, and promyelocytes. Blood smears from CBCs yielding IG's will be scanned manually for concordance. If this scan disagrees with the automated IG or if promyelocytes are noted, a manual differential will be performed. Immature Gran Absolute 0.07(H) 0.00 - 0.04 x10(3)/ L [facility] Blood specimen (specimen) 11/15/2020 2:18 AM EST 11/15/2020 2:30 AM EST Narrative Resulting Agency Comment Spec In Lab Norberto Gonzalez MD HEMATOLOGY ORDERABLE S [facility] [place] [address] * (ABNORMAL) Hemogram (11/15/2020 2:18 AM EST) Pathologist [facility] White Blood Cell 7.5 4.0 - 9.5 x10(3)/mc L [facility] Red Blood Cell 3.63(L) 4.58 - 5.54 x10(6)/mc L [facility] Hemoglobin 10.9(L) 13.7 - 16.5 gm/dL [facility] Hematocrit 33.8(L) 40.5 - 48.5 % [facility] Mean Cell Volume 93.1 82.9 - 93.1 fL [facility] Mean Cell Hemoglobin 30.0 27.5 - 32.1 pg [facility] Mean Cell Hemoglobin Concentration 32.2 32.0 - 35.7 gm/dL [facility] Platelet 261 145 - 357 x10(3)/mc L [facility] RDW Standard Deviation 43.1 36.0 - 45.0 [facility] RDW coefficient of variation 12.7 11.4 - 13.8 % [facility] Mean Platelet Volume 10.5 7.6 - 12.9 fL [facility] NRBC% auto 0.0 % [facility] NRBC Absolute 0.000 0.000 - 0.000 x10(3)/ L [facility] Blood specimen (specimen) 11/15/2020 2:18 AM EST 11/15/2020 2:30 AM EST Narrative Resulting Agency Comment Spec In Lab Norberto Gonzalez MD HEMATOLOGY ORDERABLE S [facility] [place] [address] * Phosphorus (11/15/2020 2:18 AM EST) Pathologist [facility] Phosphorus 4.0 2.5 - 4.5 mg/dL [facility] Blood specimen (specimen) 11/15/2020 2:18 AM EST 11/15/2020 2:30 AM EST Narrative Resulting Agency Comment Spec In Lab Radha Bolden MD CHEMISTRY ORDERABLES Performing Organization Address [facility] Co de Phone Number [facility] [place] [address] * Magnesium (11/15/2020 2:18 AM EST) Magnesium 0.77 0.69 - 1.07 mmol/L [facility] Blood specimen (specimen) 11/15/2020 2:18 AM EST 11/15/2020 2:30 AM EST Narrative Resulting Agency Comment Spec In Lab Radha Bolden MD CHEMISTRY ORDERABLES Performing Organization Address [facility] Co de Phone Number [facility] [place] [address] * (ABNORMAL) Basic Metabolic Panel (non-fasting) (11/15/2020 2:18 AM EST) Glucose 112 65 - 199 mg/dL [facility] Comment:Diabetes: >=200 mg/d L plus symptoms Blood Urea Nitrogen 34(H) 10 - 20 mg/dL [facility] Creatinine 0.90 0.80 - 1.50 mg/dL [facility] Sodium 138 135 - 145 mmol/L [facility] Potassium 4.1 3.5 - 5.0 mmol/L [facility] Comment: Please note: ??Patients with WBC >100,000 may have falsely elevated Potassium levels. ??For accurate Potassium quantification in these patients send serum separator tube (gold top) for subsequent determinations. ??Contact the Clinical Chemistry Laboratory if there are any questions. Chloride 106 98 - 107 mmol/L [facility] Carbon Dioxide 20(L) 22 - 31 mmol/L [facility] Anion Gap 12 5 - 15 mmol/L [facility] Calcium 9.3 8.5 - 10.5 mg/dL [facility] Est Glomerular Filtration Rate 97 >=60 mL/min/1. 73 m?? [facility] Comment: This patient? s estimated [...] In Lab Radha Bolden MD CHEMISTRY ORDERABLES [facility] [place] [address] * (ABNORMAL) Differential, Automated (11/14/2020 1:12 AM EST) Neutrophil % 70.5 % [facility] Neutrophil Absolute 5.25 1.70 - 6.10 x10(3)/mc L [facility] Lymph % 18.8 % [facility] Lymphocytes Abs 1.4 0.9 - 3.2 x10(3)/mc L [facility] Monocyte % 6.8 % [facility] Monocyte Abs 0.5 0.3 - 0.9 x10(3)/mc L [facility] Eos % 2.7 % [facility] Eosinophils Abs 0.2 0.0 - 0.4 x10(3)/mc L [facility] Basophil % 0.4 % [facility] Baso Absolute 0.0 0.0 - 0.1 x10(3)/ L [facility] Immature Gran % 0.80 % [facility] Comment: Immature granulocytes(IG's)percentage and absolute count will include metamyelocytes, myelocytes, and promyelocytes. Blood smears from CBCs yielding IG's will be scanned manually for concordance. If this scan disagrees with the automated IG or if promyelocytes are noted, a manual differential will be performed. Immature Gran Absolute 0.06(H) 0.00 - 0.04 x10(3)/ L [facility] Blood specimen (specimen) 11/14/2020 1:12 AM EST 11/14/2020 1:31 AM EST Narrative Resulting Agency Comment Spec In Lab Norberto Gonzalez MD HEMATOLOGY ORDERABLE S Performing Organization Address City/State/[facility] Co de Phone Number [facility] [place] [address] * (ABNORMAL) Hemogram (11/14/2020 1:12 AM EST) White Blood Cell 7.4 4.0 - 9.5 x10(3)/ L [facility] Red Blood Cell 3.39(L) 4.58 - 5.54 x10(6)/ L [facility] Hemoglobin 10.4(L) 13.7 - 16.5 gm/dL [facility] Hematocrit 31.6(L) 40.5 - 48.5 % [facility] Mean Cell Volume 93.2(H) 82.9 - 93.1 fL [facility] Mean Cell Hemoglobin 30.7 27.5 - 32.1 pg [facility] Mean Cell Hemoglobin Concentration 32.9 32.0 - 35.7 gm/dL [facility] Platelet 314 145 - 357 x10(3)/ L [facility] RDW Standard Deviation 42.7 36.0 - 45.0 fL [facility] RDW coefficient of variation 12.5 11.4 - 13.8 % [facility] Mean Platelet Volume 10.7 7.6 - 12.9 fL [facility] NRBC% auto 0.0 % [facility] NRBC Absolute 0.000 0.000 - 0.000 x10(3)/mc L [facility] Blood specimen (specimen) 11/14/2020 1:12 AM EST 11/14/2020 1:31 AM EST Narrative Resulting Agency Comment Spec In Lab Norberto Gonzalez MD HEMATOLOGY ORDERABLE S Performing Organization Address City/[facility]/ZIP Co de Phone Number [facility] [place] [address] * Phosphorus (11/14/2020 1:12 AM EST) Phosphorus 4.1 2.5 - 4.5 mg/dL [facility] Blood specimen (specimen) 11/14/2020 1:12 AM EST 11/14/2020 1:31 AM EST Narrative Resulting Agency Comment Spec In Lab Radha Bolden MD CHEMISTRY ORDERABLES Performing Organization Address City/[facility]/ZIP Co de Phone Number [facility] [place] [address] * Magnesium (11/14/2020 1:12 AM EST) Magnesium 0.77 0.69 - 1.07 mmol/L [facility] Blood specimen (specimen) 11/14/2020 1:12 AM EST 11/14/2020 1:31 AM EST Narrative Resulting Agency Comment Spec In Lab Radha Bolden MD CHEMISTRY ORDERABLES Performing Organization Address [facility] Co de Phone Number [facility] [place] [address] * (ABNORMAL) Basic Metabolic Panel (non-fasting) (11/14/2020 1:12 AM EST) Glucose 118 65 - 199 mg/dL [facility] Comment:Diabetes: >=200 mg/d L plus symptoms Blood Urea Nitrogen 38(H) 10 - 20 mg/dL [facility] Creatinine 0.85 0.80 - 1.50 mg/dL [facility] Sodium 138 135 - 145 mmol/L [facility] Potassium 4.1 3.5 - 5.0 mmol/L [facility] Comment: Please note: ??Patients with WBC >100,000 may have falsely elevated Potassium levels. ??For accurate Potassium quantification in these patients send serum separator tube (gold top) for subsequent determinations. ??Contact the Clinical Chemistry Laboratory if there are any questions. Chloride 109(H) 98 - 107 mmol/L [facility] Carbon Dioxide 19(L) 22 - 31 mmol/L [facility] Anion Gap 10 5 - 15 mmol/L [facility] Calcium 9.1 8.5 - 10.5 mg/dL [facility] Est Glomerular Filtration Rate 99 >=60 mL/min/1. 73 m?? [facility] Comment: This patient? s estimated [...] In Lab Radha Bolden MD CHEMISTRY ORDERABLES [facility] [place] [address] * (ABNORMAL) Differential, Automated (11/13/2020 3:58 AM EST) Pathologist [facility] Neutrophil % 72.9 % [facility] Neutrophil Absolute 6.82(H) 1.70 - 6.10 x10(3)/mc L [facility] Lymph % 16.4 % [facility] Lymphocytes Abs 1.5 0.9 - 3.2 x10(3)/mc L [facility] Monocyte % 6.8 % [facility] Monocyte Abs 0.6 0.3 - 0.9 x10(3)/ L [facility] Eos % 2.4 % [facility] Eosinophils Abs 0.2 0.0 - 0.4 x10(3)/[facility] Basophil % 0.5 % [facility] Baso Absolute 0.0 0.0 - 0.1 x10(3)/ L [facility] Immature Gran % 1.00 % [facility] Comment: Immature granulocytes(IG's)percentage and absolute count will include metamyelocytes, myelocytes, and promyelocytes. Blood smears from CBCs yielding IG's will be scanned manually for concordance. If this scan disagrees with the automated IG or if promyelocytes are noted, a manual differential will be performed. Immature Gran Absolute 0.09(H) 0.00 - 0.04 x10(3)/mc L [facility] Blood specimen (specimen) 11/13/2020 3:58 AM EST 11/13/2020 4:12 AM EST Narrative Resulting Agency Comment Spec In Lab Norberto Gonzalez MD HEMATOLOGY ORDERABLE S [facility] [place] [address] * (ABNORMAL) Hemogram (11/13/2020 3:58 AM EST) White Blood Cell 9.4 4.0 - 9.5 x10(3)/ L [facility] Red Blood Cell 3.41(L) 4.58 - 5.54 x10(6)/ L [facility] Hemoglobin 10.4(L) 13.7 - 16.5 gm/dL [facility] Hematocrit 31.7(L) 40.5 - 48.5 % [facility] Mean Cell Volume 93.0 82.9 - 93.1 fL [facility] Mean Cell Hemoglobin 30.5 27.5 - 32.1 pg [facility] Mean Cell Hemoglobin Concentration 32.8 32.0 - 35.7 gm/dL [facility] Platelet 330 145 - 357 x10(3)/[facility] RDW Standard Deviation 41.9 36.0 - 45.0 [facility] RDW coefficient of variation 12.3 11.4 - 13.8 % [facility] Mean Platelet Volume 10.5 7.6 - 12.9 fL [facility] NRBC% auto 0.0 % [facility] NRBC Absolute 0.000 0.000 - 0.000 x10(3)/[facility] Blood specimen (specimen) 11/13/2020 3:58 AM EST 11/13/2020 4:12 AM EST Narrative Resulting Agency Comment Spec In Lab Norberto Gonzalez MD HEMATOLOGY ORDERABLE S [facility] [place] [address] * Phosphorus (11/13/2020 3:58 AM EST) Phosphorus 3.5 2.5 - 4.5 mg/dL [facility] Blood specimen (specimen) 11/13/2020 3:58 AM EST 11/13/2020 4:12 AM EST Narrative Resulting Agency Comment Spec In Lab Radha Bolden MD CHEMISTRY ORDERABLES Performing Organization Address City/[facility]/ZIP Co de Phone Number [facility] [place] [address] * Magnesium (11/13/2020 3:58 AM EST) Pathologist [facility] Magnesium 0.76 0.69 - 1.07 mmol/L [facility] Blood specimen (specimen) 11/13/2020 3:58 AM EST 11/13/2020 4:12 AM EST Narrative Resulting Agency Comment Spec In Lab Radha Bolden MD CHEMISTRY ORDERABLES Performing Organization Address [facility] Co de Phone Number [facility] [place] [address] * (ABNORMAL) Basic Metabolic Panel (non-fasting) (11/13/2020 3:58 AM EST) [facility] Glucose 109 65 - 199 mg/dL [facility] Comment:Diabetes: >=200 mg/d L plus symptoms Blood Urea Nitrogen 41(H) 10 - 20 mg/dL [facility] Creatinine 0.77(L) 0.80 - 1.50 mg/dL [facility] Sodium 139 135 - 145 mmol/L [facility] Potassium 4.2 3.5 - 5.0 mmol/L [facility] Comment: Please note: ??Patients with WBC >100,000 may have falsely elevated Potassium levels. ??For accurate Potassium quantification in these patients send serum separator tube (gold top) for subsequent determinations. ??Contact the Clinical Chemistry Laboratory if there are any questions. Chloride 110(H) 98 - 107 mmol/L [facility] Carbon Dioxide 20(L) 22 - 31 mmol/L [facility] Anion Gap 9 5 - 15 mmol/L [facility] Calcium 8.9 8.5 - 10.5 mg/dL [facility] Est Glomerular Filtration Rate 104 >=60 mL/min/1. 73 m?? [facility] Comment: This patient? s estimated [...] In Lab Radha Bolden MD CHEMISTRY ORDERABLES [facility] [place] [address] * (ABNORMAL) Differential, Automated (11/12/2020 2:40 AM EST) Neutrophil % 66.6 % [facility] Neutrophil Absolute 5.38 1.70 - 6.10 x10(3)/mc L [facility] Lymph % 21.8 % [facility] Lymphocytes Abs 1.8 0.9 - 3.2 x10(3)/mc L [facility] Monocyte % 6.9 % [facility] Monocyte Abs 0.6 0.3 - 0.9 x10(3)/mc L [facility] Eos % 3.2 % [facility] Eosinophils Abs 0.3 0.0 - 0.4 x10(3)/mc L [facility] Basophil % 0.6 % [facility] Baso Absolute 0.0 0.0 - 0.1 x10(3)/mc L [facility] Immature Gran % 0.90 % [facility] Comment: Immature granulocytes(IG's)percentage and absolute count will include metamyelocytes, myelocytes, and promyelocytes. Blood smears from CBCs yielding IG's will be scanned manually for concordance. If this scan disagrees with the automated IG or if promyelocytes are noted, a manual differential will be performed. Immature Gran Absolute 0.07(H) 0.00 - 0.04 x10(3)/mc L [facility] Blood specimen (specimen) 11/12/2020 2:40 AM EST 11/12/2020 2:47 AM EST Narrative Resulting Agency Comment Spec In Lab Norberto Gonzalez MD HEMATOLOGY ORDERABLE S [facility] [place] [address] * (ABNORMAL) Hemogram (11/12/2020 2:40 AM EST) White Blood Cell 8.1 4.0 - 9.5 x10(3)/mc L [facility] Red Blood Cell 3.39(L) 4.58 - 5.54 x10(6)/mc L [facility] Hemoglobin 10.4(L) 13.7 - 16.5 gm/dL [facility] Hematocrit 31.5(L) 40.5 - 48.5 % [facility] Mean Cell Volume 92.9 82.9 - 93.1 fL [facility] Mean Cell Hemoglobin 30.7 27.5 - 32.1 pg [facility] Mean Cell Hemoglobin Concentration 33.0 32.0 - 35.7 gm/dL [facility] Platelet 326 145 - 357 x10(3)/mc L [facility] RDW Standard Deviation 42.4 36.0 - 45.0 [facility] RDW coefficient of variation 12.4 11.4 - 13.8 % [facility] Mean Platelet Volume 10.5 7.6 - 12.9 fL [facility] NRBC% auto 0.0 % [facility] NRBC Absolute 0.000 0.000 - 0.000 x10(3)/mc L [facility] Blood specimen (specimen) 11/12/2020 2:40 AM EST 11/12/2020 2:47 AM EST Narrative Resulting Agency Comment Spec In Lab Norberto Gonzalez MD HEMATOLOGY ORDERABLE S Performing Organization Address City/[facility]/ZIP Co de Phone Number [facility] [place] [address] * Phosphorus (11/12/2020 2:40 AM EST) Phosphorus 4.0 2.5 - 4.5 mg/dL [facility] Blood specimen (specimen) 11/12/2020 2:40 AM EST 11/12/2020 2:47 AM EST Narrative Resulting Agency Comment Spec In Lab Radha Bolden MD CHEMISTRY ORDERABLES Performing Organization Address [facility] Co de Phone Number [facility] [place] [address] * Magnesium (11/12/2020 2:40 AM EST) Magnesium 0.81 0.69 - 1.07 mmol/L [facility] Blood specimen (specimen) 11/12/2020 2:40 AM EST 11/12/2020 2:47 AM EST Narrative Resulting Agency Comment Spec In Lab Radha Bolden MD CHEMISTRY ORDERABLES Performing Organization Address [facility] Co de Phone Number [facility] [place] [address] * (ABNORMAL) Basic Metabolic Panel (non-fasting) (11/12/2020 2:40 AM EST) Glucose 97 65 - 199 mg/dL [facility] Comment:Diabetes: >=200 mg/d L plus symptoms Blood Urea Nitrogen 38(H) 10 - 20 mg/dL [facility] Creatinine 0.81 0.80 - 1.50 mg/dL [facility] Sodium 139 135 - 145 mmol/L [facility] Potassium 4.4 3.5 - 5.0 mmol/L [facility] Comment: Please note: ??Patients with WBC >100,000 may have falsely elevated Potassium levels. ??For accurate Potassium quantification in these patients send serum separator tube (gold top) for subsequent determinations. ??Contact the Clinical Chemistry Laboratory if there are any questions. Chloride 108(H) 98 - 107 mmol/L [facility] Carbon Dioxide 21(L) 22 - 31 mmol/L [facility] Anion Gap 10 5 - 15 mmol/L [facility] Calcium 8.9 8.5 - 10.5 mg/dL [facility] Est Glomerular Filtration Rate 101 >=60 mL/min/1. 73 m?? [facility] Comment: This patient? s estimated [...] In Lab Radha Bolden MD CHEMISTRY ORDERABLES [facility] [place] [address] * (ABNORMAL) Differential, Automated (11/11/2020 4:15 AM EST) Neutrophil % 68.2 % [facility] Neutrophil Absolute 5.80 1.70 - 6.10 x10(3)/[facility] Lymph % 18.1 % [facility] Lymphocytes Abs 1.5 0.9 - 3.2 x10(3)/[facility] Monocyte % 8.4 % [facility] Monocyte Abs 0.7 0.3 - 0.9 x10(3)/[facility] Eos % 3.8 % [facility] Eosinophils Abs 0.3 0.0 - 0.4 x10(3)/[facility] Basophil % 0.6 % [facility] Baso Absolute 0.0 0.0 - 0.1 x10(3)/[facility] Immature Gran % 0.90 % [facility] Comment: Immature granulocytes(IG's)percentage and absolute count will include metamyelocytes, myelocytes, and promyelocytes. Blood smears from CBCs yielding IG's will be scanned manually for concordance. If this scan disagrees with the automated IG or if promyelocytes are noted, a manual differential will be performed. Immature Gran Absolute 0.08(H) 0.00 - 0.04 x10(3)/[facility] Blood specimen (specimen) 11/11/2020 4:15 AM EST 11/11/2020 4:37 AM EST Narrative Resulting Agency Comment Spec In Lab Norberto Gonzalez MD HEMATOLOGY ORDERABLE S [facility] [place] [address] * (ABNORMAL) Hemogram (11/11/2020 4:15 AM EST) White Blood Cell 8.5 4.0 - 9.5 x10(3)/[facility] Red Blood Cell 3.34(L) 4.58 - 5.54 x10(6)/mc L [facility] Hemoglobin 10.2(L) 13.7 - 16.5 gm/dL [facility] Hematocrit 31.3(L) 40.5 - 48.5 % [facility] Mean Cell Volume 93.7(H) 82.9 - 93.1 fL [facility] Mean Cell Hemoglobin 30.5 27.5 - 32.1 pg [facility] Mean Cell Hemoglobin Concentration 32.6 32.0 - 35.7 gm/dL [facility] Platelet 329 145 - 357 x10(3)/mc L [facility] RDW Standard Deviation 42.5 36.0 - 45.0 [facility] RDW coefficient of variation 12.4 11.4 - 13.8 % [facility] Mean Platelet Volume 10.3 7.6 - 12.9 [facility] NRBC% auto 0.0 % [facility] NRBC Absolute 0.000 0.000 - 0.000 x10(3)/mc L [facility] Blood specimen (specimen) 11/11/2020 4:15 AM EST 11/11/2020 4:37 AM EST Narrative Resulting Agency Comment Spec In Lab Norberto Gonzalez MD HEMATOLOGY ORDERABLE S Performing Organization Address City/[facility]/ZIP Co de Phone Number [facility] [place] [address] * Phosphorus (11/11/2020 4:15 AM EST) Phosphorus 4.4 2.5 - 4.5 mg/dL [facility] Blood specimen (specimen) 11/11/2020 4:15 AM EST 11/11/2020 4:37 AM EST Narrative Resulting Agency Comment Spec In Lab Radha Bolden MD CHEMISTRY ORDERABLES Performing Organization Address City/[facility]/ZIP Co de Phone Number [facility] [place] [address] * Magnesium (11/11/2020 4:15 AM EST) Magnesium 0.82 0.69 - 1.07 mmol/L [facility] Blood specimen (specimen) 11/11/2020 4:15 AM EST 11/11/2020 4:37 AM EST Narrative Resulting Agency Comment Spec In Lab Radha Bolden MD CHEMISTRY ORDERABLES [facility] [place] [address] * (ABNORMAL) Basic Metabolic Panel (non-fasting) (11/11/2020 4:15 AM EST) Glucose 96 65 - 199 mg/dL [facility] Comment:Diabetes: >=200 mg/d L plus symptoms Blood Urea Nitrogen 38(H) 10 - 20 mg/dL [facility] Creatinine 0.79(L) 0.80 - 1.50 mg/dL [facility] Sodium 138 135 - 145 mmol/L [facility] Potassium 4.5 3.5 - 5.0 mmol/L [facility] Comment: Please note: ??Patients with WBC >100,000 may have falsely elevated Potassium levels. ??For accurate Potassium quantification in these patients send serum separator tube (gold top) for subsequent determinations. ??Contact the Clinical Chemistry Laboratory if there are any questions. Chloride 107 98 - 107 mmol/L [facility] Carbon Dioxide 21(L) 22 - 31 mmol/L [facility] Anion Gap 10 5 - 15 mmol/L [facility] Calcium 8.8 8.5 - 10.5 mg/dL [facility] Est Glomerular Filtration Rate 103 >=60 mL/min/1. 73 m?? [facility] Comment: This patient? s estimated [...] In Lab Radha Bolden MD CHEMISTRY ORDERABLES [facility] [place] [address] * (ABNORMAL) Differential, Automated (11/10/2020 1:00 AM EST) Neutrophil % 65.3 % [facility] Neutrophil Absolute 4.43 1.70 - 6.10 x10(3)/mc L [facility] Lymph % 17.6 % [facility] Lymphocytes Abs 1.2 0.9 - 3.2 x10(3)/mc L [facility] Monocyte % 10.2 % [facility] Monocyte Abs 0.7 0.3 - 0.9 x10(3)/mc L [facility] Eos % 5.0 % [facility] Eosinophils Abs 0.3 0.0 - 0.4 x10(3)/mc L [facility] Basophil % 0.6 % [facility] Baso Absolute 0.0 0.0 - 0.1 x10(3)/mc L [facility] Immature Gran % 1.30 % [facility] Comment: Immature granulocytes(IG's)percentage and absolute count will include metamyelocytes, myelocytes, and promyelocytes. Blood smears from CBCs yielding IG's will be scanned manually for concordance. If this scan disagrees with the automated IG or if promyelocytes are noted, a manual differential will be performed. Immature Gran Absolute 0.09(H) 0.00 - 0.04 x10(3)/ L [facility] Blood specimen (specimen) 11/10/2020 1:00 AM EST 11/10/2020 1:32 AM EST Narrative Resulting Agency Comment Spec In Lab Norberto Gonzalez MD HEMATOLOGY ORDERABLE S [facility] [place] [address] * (ABNORMAL) Hemogram (11/10/2020 1:00 AM EST) White Blood Cell 6.8 4.0 - 9.5 x10(3)/ L [facility] Red Blood Cell 3.38(L) 4.58 - 5.54 x10(6)/[facility] Hemoglobin 10.2(L) 13.7 - 16.5 gm/dL [facility] Hematocrit 31.5(L) 40.5 - 48.5 % [facility] Mean Cell Volume 93.2(H) 82.9 - 93.1 fL [facility] Mean Cell Hemoglobin 30.2 27.5 - 32.1 pg [facility] Mean Cell Hemoglobin Concentration 32.4 32.0 - 35.7 gm/dL [facility] Platelet 358(H) 145 - 357 x10(3)/ L [facility] RDW Standard Deviation 42.3 36.0 - 45.0 [facility] RDW coefficient of variation 12.3 11.4 - 13.8 % [facility] Mean Platelet Volume 10.6 7.6 - 12.9 [facility] NRBC% auto 0.0 % [facility] NRBC Absolute 0.000 0.000 - 0.000 x10(3)/ L [facility] Blood specimen (specimen) 11/10/2020 1:00 AM EST 11/10/2020 1:32 AM EST Narrative Resulting Agency Comment Spec In Lab Norberto Gonzalez MD HEMATOLOGY ORDERABLE S Performing Organization Address [facility] Co de Phone Number [facility] [place] [address] * Phosphorus (11/10/2020 1:00 AM EST) Phosphorus 3.2 2.5 - 4.5 mg/dL [facility] Blood specimen (specimen) 11/10/2020 1:00 AM EST 11/10/2020 1:32 AM EST Narrative Resulting Agency Comment Spec In Lab Radha Bolden MD CHEMISTRY ORDERABLES Performing Organization Address [facility] Phone Number [facility] [place] [address] * Magnesium (11/10/2020 1:00 AM EST) Magnesium 0.87 0.69 - 1.07 mmol/L [facility] Blood specimen (specimen) 11/10/2020 1:00 AM EST 11/10/2020 1:32 AM EST Narrative Resulting Agency Comment Spec In Lab Radha Bolden MD CHEMISTRY ORDERABLES Performing Organization Address [facility] Co de Phone Number [facility] [place] [address] * (ABNORMAL) Basic Metabolic Panel (non-fasting) (11/10/2020 1:00 AM EST) Glucose 105 65 - 199 mg/dL [facility] Comment:Diabetes: >=200 mg/d L plus symptoms Blood Urea Nitrogen 36(H) 10 - 20 mg/dL [facility] Creatinine 0.91 0.80 - 1.50 mg/dL [facility] Sodium 137 135 - 145 mmol/L [facility] Potassium 4.6 3.5 - 5.0 mmol/L [facility] [facility] Comment: Please note: ??Patients with WBC >100,000 may have falsely elevated Potassium levels. ??For accurate Potassium quantification in these patients send serum separator tube (gold top) for subsequent determinations. ??Contact the Clinical Chemistry Laboratory if there are any questions. Chloride 103 98 - 107 mmol/L [facility] Carbon Dioxide 23 22 - 31 mmol/L [facility] Anion Gap 11 5 - 15 mmol/L [facility] Calcium 8.9 8.5 - 10.5 mg/dL [facility] Est Glomerular Filtration Rate 96 >=60 mL/min/1. 73 m?? [facility] Comment: This patient? s estimated [...] In Lab Radha Bolden MD CHEMISTRY ORDERABLES [facility] [place] [address] * XR Cervical Spine 2 or 3 [...] ? Electronically signed by: Crys Joaquin MD, [facility] ([phone]), at 11/09/2020 3:29 PM Narrative 11/09/2020 3:29 [...] below. Electronically signed by: Crys Joaquin MD, [facility]([phone]), at 11/09/2020 3:29 PM Radha Bolden MD IMG DX ORDERABLES * (ABNORMAL) Differential, Automated (11/09/2020 2:25 AM EST) Neutrophil % 66.7 % [facility] Neutrophil Absolute 4.46 1.70 - 6.10 x10(3)/mc L [facility] Lymph % 15.2 % [facility] Lymphocytes Abs 1.0 0.9 - 3.2 x10(3)/ L [facility] Monocyte % 11.8 % [facility] Monocyte Abs 0.8 0.3 - 0.9 x10(3)/mc L [facility] Eos % 4.8 % [facility] Eosinophils Abs 0.3 0.0 - 0.4 x10(3)/ L [facility] Basophil % 0.6 % [facility] Baso Absolute 0.0 0.0 - 0.1 x10(3)/mc L [facility] Immature Gran % 0.90 % [facility] Comment: Immature granulocytes(IG's)percentage and absolute count will include metamyelocytes, myelocytes, and promyelocytes. Blood smears from CBCs yielding IG's will be scanned manually for concordance. If this scan disagrees with the automated IG or if promyelocytes are noted, a manual differential will be performed. Immature Gran Absolute 0.06(H) 0.00 - 0.04 x10(3)/mc L [facility] Blood specimen (specimen) 11/09/2020 2:25 AM EST 11/09/2020 2:45 AM EST Narrative Resulting Agency Comment Spec In Lab Norberto Gonzalez MD HEMATOLOGY ORDERABLE S [facility] [place] [address] * (ABNORMAL) Hemogram (11/09/2020 2:25 AM EST) White Blood Cell 6.7 4.0 - 9.5 x10(3)/mc L [facility] Red Blood Cell 3.27(L) 4.58 - 5.54 x10(6)/mc L [facility] Hemoglobin 9.8(L) 13.7 - 16.5 gm/dL [facility] Hematocrit 30.7(L) 40.5 - 48.5 % [facility] Mean Cell Volume 93.9(H) 82.9 - 93.1 [facility] Mean Cell Hemoglobin 30.0 27.5 - 32.1 pg [facility] Mean Cell Hemoglobin Concentration 31.9(L) 32.0 - 35.7 gm/dL [facility] Platelet 322 145 - 357 x10(3)/mc L [facility] RDW Standard Deviation 42.5 36.0 - 45.0 [facility] RDW coefficient of variation 12.4 11.4 - 13.8 % [facility] Mean Platelet Volume 10.5 7.6 - 12.9 [facility] NRBC% auto 0.0 % [facility] NRBC Absolute 0.000 0.000 - 0.000 x10(3)/[facility] Blood specimen (specimen) 11/09/2020 2:25 AM EST 11/09/2020 2:45 AM EST Narrative Resulting Agency Comment Spec In Lab Norberto Gonzalez MD HEMATOLOGY ORDERABLE S [facility] [place] [address] * Phosphorus (11/09/2020 2:25 AM EST) Phosphorus 4.0 2.5 - 4.5 mg/dL [facility] Blood specimen (specimen) 11/09/2020 2:25 AM EST 11/09/2020 2:45 AM EST Narrative Resulting Agency Comment Spec In Lab Radha Bolden MD CHEMISTRY ORDERABLES Performing Organization Address [facility] Co de Phone Number [facility] [place] [address] * Magnesium (11/09/2020 2:25 AM EST) Pathologist [facility] Magnesium 0.93 0.69 - 1.07 mmol/L [facility] Blood specimen (specimen) 11/09/2020 2:25 AM EST 11/09/2020 2:45 AM EST Narrative Resulting Agency Comment Spec In Lab Radha Bolden MD CHEMISTRY ORDERABLES Performing Organization Address [facility] de Phone Number [facility] [place] [address] * (ABNORMAL) Basic Metabolic Panel (non-fasting) (11/09/2020 2:25 AM EST) Pathologist [facility] Glucose 121 65 - 199 mg/dL [facility] Comment:Diabetes: >=200 mg/d L plus symptoms Blood Urea Nitrogen 33(H) 10 - 20 mg/dL [facility] Creatinine 0.79(L) 0.80 - 1.50 mg/dL [facility] Sodium 135 135 - 145 mmol/L [facility] Potassium 4.7 3.5 - 5.0 mmol/L [facility] Comment: Please note: ??Patients with WBC >100,000 may have falsely elevated Potassium levels. ??For accurate Potassium quantification in these patients send serum separator tube (gold top) for subsequent determinations. ??Contact the Clinical Chemistry Laboratory if there are any questions. Chloride 102 98 - 107 mmol/L [facility] Carbon Dioxide 23 22 - 31 mmol/L [facility] Anion Gap 10 5 - 15 mmol/L [facility] Calcium 8.7 8.5 - 10.5 mg/dL [facility] Est Glomerular Filtration Rate 103 >=60 mL/min/1. 73 m?? [facility] Comment: This patient? s estimated [...] In Lab Radha Bolden MD CHEMISTRY ORDERABLES [facility] [place] [address] * CT Abdomen & Pelvis w Contrast [...] ? Electronically signed by: Blayne Ferrara MD, [facility] ([phone]), at 11/08/2020 11:04 AM Narrative 11/08/2020 11:04 [...] below. Electronically signed by: Blayne Ferrara MD, [facility]([phone]), at 11/08/2020 11:04 AM Radha Bolden MD IMG CT ORDERABLES * (ABNORMAL) Differential, Automated (11/08/2020 1:35 AM EST) Neutrophil % 75.7 % [facility] Neutrophil Absolute 6.99(H) 1.70 - 6.10 x10(3)/mc L [facility] Lymph % 11.9 % [facility] Lymphocytes Abs 1.1 0.9 - 3.2 x10(3)/mc L [facility] Monocyte % 9.3 % [facility] Monocyte Abs 0.9 0.3 - 0.9 x10(3)/mc L [facility] Eos % 2.2 % [facility] Eosinophils Abs 0.2 0.0 - 0.4 x10(3)/mc L [facility] Basophil % 0.3 % [facility] Baso Absolute 0.0 0.0 - 0.1 x10(3)/mc L [facility] Immature Gran % 0.60 % [facility] Comment: Immature granulocytes(IG's)percentage and absolute count will include metamyelocytes, myelocytes, and promyelocytes. Blood smears from CBCs yielding IG's will be scanned manually for concordance. If this scan disagrees with the automated IG or if promyelocytes are noted, a manual differential will be performed. Immature Gran Absolute 0.06(H) 0.00 - 0.04 x10(3)/mc L [facility] Blood specimen (specimen) 11/08/2020 1:35 AM EST 11/08/2020 1:56 AM EST Narrative Resulting Agency Comment Spec In Lab Norberto Gonzalez MD HEMATOLOGY ORDERABLE S Performing Organization Address City/State/[facility] Co de Phone Number [facility] [place] [address] * (ABNORMAL) Hemogram (11/08/2020 1:35 AM EST) White Blood Cell 9.2 4.0 - 9.5 x10(3)/ L [facility] Red Blood Cell 3.24(L) 4.58 - 5.54 x10(6)/[facility] Hemoglobin 9.9(L) 13.7 - 16.5 gm/dL [facility] Hematocrit 29.8(L) 40.5 - 48.5 % [facility] Mean Cell Volume 92.0 82.9 - 93.1 [facility] Mean Cell Hemoglobin 30.6 27.5 - 32.1 pg [facility] Mean Cell Hemoglobin Concentration 33.2 32.0 - 35.7 gm/dL [facility] Platelet 310 145 - 357 x10(3)/[facility] RDW Standard Deviation 41.0 36.0 - 45.0 [facility] RDW coefficient of variation 12.1 11.4 - 13.8 % [facility] Mean Platelet Volume 10.6 7.6 - 12.9 [facility] NRBC% auto 0.0 % [facility] NRBC Absolute 0.000 0.000 - 0.000 x10(3)/ L [facility] Blood specimen (specimen) 11/08/2020 1:35 AM EST 11/08/2020 1:56 AM EST Narrative Resulting Agency Comment Spec In Lab Norberto Gonzalez MD HEMATOLOGY ORDERABLE S Performing Organization Address [facility] Co de Phone Number [facility] [place] [address] * (ABNORMAL) Phosphorus (11/08/2020 1:35 AM EST) Phosphorus 4.8(H) 2.5 - 4.5 mg/dL [facility] Blood specimen (specimen) 11/08/2020 1:35 AM EST 11/08/2020 1:55 AM EST Narrative Resulting Agency Comment Spec In Lab Radha Bolden MD CHEMISTRY ORDERABLES Performing Organization Address [facility] Co de Phone Number [facility] [place] [address] * Magnesium (11/08/2020 1:35 AM EST) Magnesium 0.94 0.69 - 1.07 mmol/L [facility] Blood specimen (specimen) 11/08/2020 1:35 AM EST 11/08/2020 1:55 AM EST Narrative Resulting Agency Comment Spec In Lab Radha Bolden MD CHEMISTRY ORDERABLES Performing Organization Address [facility] Co de Phone Number [facility] [place] [address] * (ABNORMAL) Basic Metabolic Panel (non-fasting) (11/08/2020 1:35 AM EST) Glucose 123 65 - 199 mg/dL [facility] Comment:Diabetes: >=200 mg/d L plus symptoms Blood Urea Nitrogen 30(H) 10 - 20 mg/dL [facility] Creatinine 0.83 0.80 - 1.50 mg/dL [facility] Sodium 136 135 - 145 mmol/L [facility] Potassium 4.7 3.5 - 5.0 mmol/L [facility] Comment: Please note: ??Patients with WBC >100,000 may have falsely elevated Potassium levels. ??For accurate Potassium quantification in these patients send serum separator tube (gold top) for subsequent determinations. ??Contact the Clinical Chemistry Laboratory if there are any questions. Chloride 99 98 - 107 mmol/L [facility] Carbon Dioxide 27 22 - 31 mmol/L [facility] Anion Gap 10 5 - 15 mmol/L [facility] Calcium 8.6 8.5 - 10.5 mg/dL [facility] Est Glomerular Filtration Rate 100 >=60 mL/min/1. 73 m?? [facility] Comment: This patient? s estimated [...] In Lab Radha Bolden MD CHEMISTRY ORDERABLES [facility] [place] [address] * XR Abdomen 1 view (Generic) (11/07/2020 [...] ? Electronically signed by: Usha Liriano MD, [facility] ([phone]), at 11/07/2020 11:41 AM Narrative 11/07/2020 11:41 [...] below. Electronically signed by: Usha Liriano MD, [facility]([phone]), at 11/07/2020 11:41 AM Radha Bolden MD IMG DX ORDERABLES * EKG 12 Lead (11/06/2020 1:04 PM EST) Ventricular rate 64 BPM MUSE SYSTEM Atrial Rate 64 BPM MUSE SYSTEM P-R Interval 138 ms MUSE SYSTEM QRS Duration 98 ms MUSE SYSTEM Q-T Interval 398 ms MUSE SYSTEM QTC Calculated (Bezet) 410 ms MUSE SYSTEM Calculated P [place] 71 degrees MUSE SYSTEM Calculated R [place] 64 degrees MUSE SYSTEM Calculated T [place] 19 degrees MUSE SYSTEM INTERPRETATION Normal sinus rhythm Normal ECG No previous ECGs available Confirmed by Monica Staley ([id number]) on 11/06/2020 1:52:38 PM MUSE SYSTEM 11/06/2020 1:04 PM EST 11/06/2020 1:52 PM EST Radha Bolden MD ECG ORDERABLES MUSE SYSTEM * (ABNORMAL) Differential, Automated (11/06/2020 4:40 AM EST) Neutrophil % 77.4 % [facility] Neutrophil Absolute 8.71(H) 1.70 - 6.10 x10(3)/mc L [facility] Lymph % 11.8 % [facility] Lymphocytes Abs 1.3 0.9 - 3.2 x10(3)/mc L [facility] Monocyte % 8.8 % [facility] Monocyte Abs 1.0(H) 0.3 - 0.9 x10(3)/mc L [facility] Eos % 1.3 % [facility] Eosinophils Abs 0.2 0.0 - 0.4 x10(3)/mc L [facility] Basophil % 0.3 % [facility] Baso Absolute 0.0 0.0 - 0.1 x10(3)/mc L [facility] Immature Gran % 0.40 % [facility] Comment: Immature granulocytes(IG's)percentage and absolute count will include metamyelocytes, myelocytes, and promyelocytes. Blood smears from CBCs yielding IG's will be scanned manually for concordance. If this scan disagrees with the automated IG or if promyelocytes are noted, a manual differential will be performed. Immature Gran Absolute 0.05(H) 0.00 - 0.04 x10(3)/mc L [facility] Blood specimen (specimen) 11/06/2020 4:40 AM EST 11/06/2020 4:45 AM EST Narrative Resulting Agency Comment Spec In Lab Norberto Gonzalez MD HEMATOLOGY ORDERABLE S [facility] [place] [address] * (ABNORMAL) Hemogram (11/06/2020 4:40 AM EST) White Blood Cell 11.3(H) 4.0 - 9.5 x10(3)/mc L [facility] Red Blood Cell 3.25(L) 4.58 - 5.54 x10(6)/mc L [facility] Hemoglobin 10.0(L) 13.7 - 16.5 gm/dL [facility] Hematocrit 30.2(L) 40.5 - 48.5 % [facility] Mean Cell Volume 92.9 82.9 - 93.1 fL [facility] Mean Cell Hemoglobin 30.8 27.5 - 32.1 pg [facility] Mean Cell Hemoglobin Concentration 33.1 32.0 - 35.7 gm/dL [facility] Platelet 255 145 - 357 x10(3)/mc L [facility] RDW Standard Deviation 41.5 36.0 - 45.0 fL [facility] RDW coefficient of variation 12.1 11.4 - 13.8 % [facility] Mean Platelet Volume 10.5 7.6 - 12.9 fL [facility] NRBC% auto 0.0 % [facility] NRBC Absolute 0.000 0.000 - 0.000 x10(3)/mc L [facility] Blood specimen (specimen) 11/06/2020 4:40 AM EST 11/06/2020 4:45 AM EST Narrative Resulting Agency Comment Spec In Lab Norberto Gonzalez MD HEMATOLOGY ORDERABLE S Performing Organization Address [facility]/ZIP Co de Phone Number [facility] [place] [address] * Phosphorus (11/06/2020 4:40 AM EST) Phosphorus 3.9 2.5 - 4.5 mg/dL [facility] Blood specimen (specimen) 11/06/2020 4:40 AM EST 11/06/2020 4:45 AM EST Narrative Resulting Agency Comment Spec In Lab Radha Bolden MD CHEMISTRY ORDERABLES Performing Organization Address [facility] Co de Phone Number [facility] [place] [address] * Magnesium (11/06/2020 4:40 AM EST) Magnesium 0.86 0.69 - 1.07 mmol/L [facility] Blood specimen (specimen) 11/06/2020 4:40 AM EST 11/06/2020 4:45 AM EST Narrative Resulting Agency Comment Spec In Lab Radha Bolden MD CHEMISTRY ORDERABLES Performing Organization Address [facility] Co de Phone Number [facility] [place] [address] * (ABNORMAL) Basic Metabolic Panel (non-fasting) (11/06/2020 4:40 AM EST) Glucose 106 65 - 199 mg/dL [facility] Comment:Diabetes: >=200 mg/d L plus symptoms Blood Urea Nitrogen 25(H) 10 - 20 mg/dL [facility] Creatinine 0.75(L) 0.80 - 1.50 mg/dL [facility] Sodium 134(L) 135 - 145 mmol/L [facility] Potassium 4.6 3.5 - 5.0 mmol/L [facility] Comment: Please note: ??Patients with WBC >100,000 may have falsely elevated Potassium levels. ??For accurate Potassium quantification in these patients send serum separator tube (gold top) for subsequent determinations. ??Contact the Clinical Chemistry Laboratory if there are any questions. Chloride 101 98 - 107 mmol/L [facility] Carbon Dioxide 25 22 - 31 mmol/L [facility] Anion Gap 8 5 - 15 mmol/L [facility] Calcium 8.2(L) 8.5 - 10.5 mg/dL [facility] Est Glomerular Filtration Rate 105 >=60 mL/min/1. 73 m?? [facility] Comment: This patient? s estimated [...] In Lab Radha Bolden MD CHEMISTRY ORDERABLES [facility] [place] [address] * XR Chest One View (11/05/2020 11:54 [...] ? Electronically signed by: Lili Burgos MD, [facility] ([phone]), at 11/05/2020 11:58 AM Narrative 11/05/2020 11:58 [...] below. Electronically signed by: Lili Burgos MD, [facility]([phone]), at 11/05/2020 11:58 AM Robyn J Olivia [employer] IMG DX ORDERABLES * (ABNORMAL) Differential, Automated (11/05/2020 4:12 AM EST) Neutrophil % 72.8 % [facility] Neutrophil Absolute 6.97(H) 1.70 - 6.10 x10(3)/[facility] Lymph % 14.7 % [facility] Lymphocytes Abs 1.4 0.9 - 3.2 x10(3)/[facility] Monocyte % 9.8 % [facility] Monocyte Abs 0.9 0.3 - 0.9 x10(3)/[facility] Eos % 1.9 % [facility] Eosinophils Abs 0.2 0.0 - 0.4 x10(3)/[facility] Basophil % 0.2 % [facility] Baso Absolute 0.0 0.0 - 0.1 x10(3)/[facility] Immature Gran % 0.60 % [facility] Comment: Immature granulocytes(IG's)percentage and absolute count will include metamyelocytes, myelocytes, and promyelocytes. Blood smears from CBCs yielding IG's will be scanned manually for concordance. If this scan disagrees with the automated IG or if promyelocytes are noted, a manual differential will be performed. Immature Gran Absolute 0.06(H) 0.00 - 0.04 x10(3)/ L [facility] Blood specimen (specimen) 11/05/2020 4:12 AM EST 11/05/2020 4:18 AM EST Narrative Resulting Agency Comment Spec In Lab Noble P Rodriguez MD HEMATOLOGY ORDERABLE S [facility] [place] [address] * (ABNORMAL) Hemogram (11/05/2020 4:12 AM EST) White Blood Cell 9.6(H) 4.0 - 9.5 x10(3)/mc L [facility] Red Blood Cell 3.41(L) 4.58 - 5.54 x10(6)/mc L [facility] Hemoglobin 10.5(L) 13.7 - 16.5 gm/dL [facility] Hematocrit 30.9(L) 40.5 - 48.5 % [facility] Mean Cell Volume 90.6 82.9 - 93.1 fL [facility] Mean Cell Hemoglobin 30.8 27.5 - 32.1 pg [facility] Mean Cell Hemoglobin Concentration 34.0 32.0 - 35.7 gm/dL [facility] Platelet 262 145 - 357 x10(3)/mc L [facility] RDW Standard Deviation 40.6 36.0 - 45.0 [facility]ORY RDW coefficient of variation 12.4 11.4 - 13.8 % [facility] Mean Platelet Volume 10.5 7.6 - 12.9 fL [facility] NRBC% auto 0.0 % [facility] NRBC Absolute 0.000 0.000 - 0.000 x10(3)/mc L [facility] Blood specimen (specimen) 11/05/2020 4:12 AM EST 11/05/2020 4:18 AM EST Narrative Resulting Agency Comment Spec In Lab Noble Rodriguez MD HEMATOLOGY ORDERABLE S [facility] [place] [address] * Phosphorus (11/05/2020 4:12 AM EST) Phosphorus 3.1 2.5 - 4.5 mg/dL [facility] Blood specimen (specimen) 11/05/2020 4:12 AM EST 11/05/2020 4:18 AM EST Narrative Resulting Agency Comment Spec In Lab Radha Bolden MD CHEMISTRY ORDERABLES Performing Organization Address [facility] Co de Phone Number [facility] [place] [address] * Magnesium (11/05/2020 4:12 AM EST) Pathologist [facility] Magnesium 0.76 0.69 - 1.07 mmol/L [facility] Blood specimen (specimen) 11/05/2020 4:12 AM EST 11/05/2020 4:18 AM EST Narrative Resulting Agency Comment Spec In Lab Radha Bolden MD CHEMISTRY ORDERABLES Performing Organization Address [facility] Co de Phone Number [facility] [place] [address] * (ABNORMAL) Basic Metabolic Panel (non-fasting) (11/05/2020 4:12 AM EST) Pathologist [facility] Glucose 102 65 - 199 mg/dL [facility] Comment:Diabetes: >=200 mg/d L plus symptoms Blood Urea Nitrogen 18 10 - 20 mg/dL [facility] Creatinine 0.75(L) 0.80 - 1.50 mg/dL [facility] Sodium 134(L) 135 - 145 mmol/L [facility] Potassium 4.3 3.5 - 5.0 mmol/L [facility] Comment: Please note: ??Patients with WBC >100,000 may have falsely elevated Potassium levels. ??For accurate Potassium quantification in these patients send serum separator tube (gold top) for subsequent determinations. ??Contact the Clinical Chemistry Laboratory if there are any questions. Chloride 102 98 - 107 mmol/L [facility] Carbon Dioxide 23 22 - 31 mmol/L [facility] Anion Gap 9 5 - 15 mmol/L [facility] Calcium 8.2(L) 8.5 - 10.5 mg/dL [facility] Est Glomerular Filtration Rate 105 >=60 mL/min/1. 73 m?? [facility] Comment: This patient? s estimated [...] In Lab Radha Bolden MD CHEMISTRY ORDERABLES [facility] [place] [address] * SCAN DOC: IMPLANTABLE DEVICES (11/05/2020 12:00 AM EST) Narrative 11/05/2020 12:00 AM EST Ordered by an unspecified provider. Scanning Provider MEDIA MGR SCAN EXT O RDR/RSLT * Differential, Automated (11/04/2020 2:30 AM EST) Neutrophil % 72.7 % [facility] Neutrophil Absolute 5.18 1.70 - 6.10 x10(3)/[facility] Lymph % 13.0 % [facility] Lymphocytes Abs 0.9 0.9 - 3.2 x10(3)/[facility] Monocyte % 10.2 % [facility] Monocyte Abs 0.7 0.3 - 0.9 x10(3)/[facility] Eos % 3.4 % [facility] Eosinophils Abs 0.2 0.0 - 0.4 x10(3)/[facility] Basophil % 0.3 % [facility] Baso Absolute 0.0 0.0 - 0.1 x10(3)/[facility] Immature Gran % 0.40 % [facility] Comment: Immature granulocytes(IG's)percentage and absolute count will include metamyelocytes, myelocytes, and promyelocytes. Blood smears from CBCs yielding IG's will be scanned manually for concordance. If this scan disagrees with the automated IG or if promyelocytes are noted, a manual differential will be performed. Immature Gran Absolute 0.03 0.00 - 0.04 x10(3)/[facility] Blood specimen (specimen) 11/04/2020 2:30 AM EST 11/04/2020 2:37 AM EST Narrative Resulting Agency Comment Spec In Lab Noble Rodriguez MD HEMATOLOGY ORDERABLE S Performing Organization Address City/State/[place] [facility] Co de Phone Number [facility] [place] [address] * (ABNORMAL) Hemogram (11/04/2020 2:30 AM EST) White Blood Cell 7.1 4.0 - 9.5 x10(3)/mc L [facility] Red Blood Cell 3.37(L) 4.58 - 5.54 x10(6)/mc L [facility] Hemoglobin 10.2(L) 13.7 - 16.5 gm/dL [facility] Hematocrit 30.5(L) 40.5 - 48.5 % [facility] Mean Cell Volume 90.5 82.9 - 93.1 fL [facility] Mean Cell Hemoglobin 30.3 27.5 - 32.1 pg [facility] Mean Cell Hemoglobin Concentration 33.4 32.0 - 35.7 gm/dL [facility] Platelet 234 145 - 357 x10(3)/mc L [facility] RDW Standard Deviation 40.3 36.0 - 45.0 fL [facility] RDW coefficient of variation 12.1 11.4 - 13.8 % [facility] Mean Platelet Volume 10.6 7.6 - 12.9 fL [facility] NRBC% auto 0.0 % [facility] NRBC Absolute 0.000 0.000 - 0.000 x10(3)/mc L [facility] Blood specimen (specimen) 11/04/2020 2:30 AM EST 11/04/2020 2:37 AM EST Narrative Resulting Agency Comment Spec In Lab Noble Rodriguez MD HEMATOLOGY ORDERABLE S Performing Organization Address City/[facility]/ZIP Co de Phone Number [facility] [place] [address] * Phosphorus (11/04/2020 2:30 AM EST) Phosphorus 2.7 2.5 - 4.5 mg/dL [facility] Blood specimen (specimen) 11/04/2020 2:30 AM EST 11/04/2020 2:37 AM EST Narrative Resulting Agency Comment Spec In Lab Radha Bolden MD CHEMISTRY ORDERABLES Performing Organization Address City/[facility] Co de Phone Number [facility] [place] [address] * Magnesium (11/04/2020 2:30 AM EST) Magnesium 0.78 0.69 - 1.07 mmol/L [facility] Blood specimen (specimen) 11/04/2020 2:30 AM EST 11/04/2020 2:37 AM EST Narrative Resulting Agency Comment Spec In Lab Radha Bolden MD CHEMISTRY ORDERABLES [facility] [place] [address] * (ABNORMAL) Basic Metabolic Panel (non-fasting) (11/04/2020 2:30 AM EST) Glucose 137 65 - 199 mg/dL [facility] Comment:Diabetes: >=200 mg/d L plus symptoms Blood Urea Nitrogen 20 10 - 20 mg/dL [facility] Creatinine 0.72(L) 0.80 - 1.50 mg/dL [facility] Sodium 137 135 - 145 mmol/L [facility] Potassium 4.0 3.5 - 5.0 mmol/L [facility] Comment: Please note: ??Patients with WBC >100,000 may have falsely elevated Potassium levels. ??For accurate Potassium quantification in these patients send serum separator tube (gold top) for subsequent determinations. ??Contact the Clinical Chemistry Laboratory if there are any questions. Chloride 104 98 - 107 mmol/L [facility] Carbon Dioxide 25 22 - 31 mmol/L [facility] Anion Gap 8 5 - 15 mmol/L [facility] Calcium 8.1(L) 8.5 - 10.5 mg/dL [facility] Est Glomerular Filtration Rate 107 >=60 mL/min/1. 73 m?? [facility] Comment: This patient? s estimated [...] Bolden MD CHEMISTRY ORDERABLES Performing Organization Address [facility] de Phone Number [facility] [place] [address] * C. Difficile Screen (11/04/2020 12:42 AM EST) C Diff Interp Negative Negative [facility] Comment: Ag/Tox Neg C. [...] - GENER AL ORDERABLES Performing Organization Address [facility] de Phone Number [facility] [place] [address] * XR Abdomen 1 view (Generic) (11/03/2020 12:37 PM EST) Anatomical Region Laterality Modality Abdomen N/A Digital Radiogra phy Impressions 11/03/2020 1:08 PM EST Diffuse gaseous distention of the stomach, small and large bowel. Thank you for letting us participate in the care of this patient. For questions regarding this report, please contact the number below. ? Electronically signed by: Rohit Ross MD, [facility] ([phone]), at 11/03/2020 1:08 PM Narrative 11/03/2020 1:08 [...] below. Electronically signed by: Rohit Ross MD, [facility]([phone]), at 11/03/2020 1:08 PM Robyn Baker WINDOWS SOFTWARE ENGINEER IMG DX ORDERABLES * Place PICC Line: Contact Vascular Access Page [phone] Extremity to exclude: No restrictions; Is PICC [...] to the planned procedure. Hand Hygiene: The distribution field technician did perform hand hygiene prior to line insertion. Catheter type: PICC Lot number: [id number] Procedure Technique: Skin was prepped with chlorhexidine. [...] ? Electronically signed by: Nallely Donato MD, [facility] ([phone]), at 11/03/2020 12:18 PM Narrative 11/03/2020 12:18 [...] below. Electronically signed by: Nallely Donato MD, [facility]([phone]), at 11/03/2020 12:18 PM Robyn Baker WINDOWS SOFTWARE ENGINEER IMG FLUORO ORDERAB LES * Differential, Automated (11/03/2020 3:15 AM EST) [facility] Neutrophil % 70.1 % [facility] Neutrophil Absolute 4.87 1.70 - 6.10 x10(3)/[facility] Lymph % 14.6 % [facility] Lymphocytes Abs 1.0 0.9 - 3.2 x10(3)/[facility] Monocyte % 10.5 % [facility] Monocyte Abs 0.7 0.3 - 0.9 x10(3)/[facility] Eos % 3.9 % [facility] Eosinophils Abs 0.3 0.0 - 0.4 x10(3)/[facility] Basophil % 0.3 % [facility] Baso Absolute 0.0 0.0 - 0.1 x10(3)/[facility] Immature Gran % 0.60 % [facility] Comment: Immature granulocytes(IG's)percentage and absolute count will include metamyelocytes, myelocytes, and promyelocytes. Blood smears from CBCs yielding IG's will be scanned manually for concordance. If this scan disagrees with the automated IG or if promyelocytes are noted, a manual differential will be performed. Immature Gran Absolute 0.04 0.00 - 0.04 x10(3)/[facility] Blood specimen (specimen) 11/03/2020 3:15 AM EST 11/03/2020 3:20 AM EST Narrative Resulting Agency Comment Spec In Lab Noble Rodriguez MD HEMATOLOGY ORDERABLE S [facility] [place] [address] * (ABNORMAL) Hemogram (11/03/2020 3:15 AM EST) [facility] White Blood Cell 6.9 4.0 - 9.5 x10(3)/ L [facility] Red Blood Cell 3.61(L) 4.58 - 5.54 x10(6)/mc L [facility] Hemoglobin 11.1(L) 13.7 - 16.5 gm/dL [facility] Hematocrit 32.1(L) 40.5 - 48.5 % [facility] Mean Cell Volume 88.9 82.9 - 93.1 fL [facility] Mean Cell Hemoglobin 30.7 27.5 - 32.1 pg [facility] Mean Cell Hemoglobin Concentration 34.6 32.0 - 35.7 gm/dL [facility] Platelet 205 145 - 357 x10(3)/[facility] LABORATORY RDW Standard Deviation 39.2 36.0 - 45.0 fL [facility] RDW coefficient of variation 12.0 11.4 - 13.8 % [facility] Mean Platelet Volume 10.6 7.6 - 12.9 fL [facility] NRBC% auto 0.0 % [facility] NRBC Absolute 0.000 0.000 - 0.000 x10(3)/[facility] Blood specimen (specimen) 11/03/2020 3:15 AM EST 11/03/2020 3:20 AM EST Narrative Resulting Agency Comment Spec In Lab Noble Rodriguez MD HEMATOLOGY ORDERABLE S [facility] [place] [address] * Phosphorus (11/03/2020 3:15 AM EST) Phosphorus 3.1 2.5 - 4.5 mg/dL [facility] Blood specimen (specimen) 11/03/2020 3:15 AM EST 11/03/2020 3:20 AM EST Narrative Resulting Agency Comment Spec In Lab Radha Bolden MD CHEMISTRY ORDERABLES Performing Organization Address City/[facility]/ZIP Co de Phone Number [facility] [place] [address] * Magnesium (11/03/2020 3:15 AM EST) Pathologist [facility] Magnesium 0.82 0.69 - 1.07 mmol/L [facility] Blood specimen (specimen) 11/03/2020 3:15 AM EST 11/03/2020 3:20 AM EST Narrative Resulting Agency Comment Spec In Lab Radha Bolden MD CHEMISTRY ORDERABLES Performing Organization Address [facility] Co de Phone Number [facility] [place] [address] * (ABNORMAL) Basic Metabolic Panel (non-fasting) (11/03/2020 3:15 AM EST) [facility] Glucose 85 65 - 199 mg/dL [facility] Comment:Diabetes: >=200 mg/d L plus symptoms Blood Urea Nitrogen 22(H) 10 - 20 mg/dL [facility] Creatinine 0.76(L) 0.80 - 1.50 mg/dL [facility] Sodium 137 135 - 145 mmol/L [facility] Potassium 4.1 3.5 - 5.0 mmol/L [facility] Comment: Please note: ??Patients with WBC >100,000 may have falsely elevated Potassium levels. ??For accurate Potassium quantification in these patients send serum separator tube (gold top) for subsequent determinations. ??Contact the Clinical Chemistry Laboratory if there are any questions. Chloride 103 98 - 107 mmol/L [facility] Carbon Dioxide 22 22 - 31 mmol/L [facility] Anion Gap 12 5 - 15 mmol/L [facility] Calcium 8.2(L) 8.5 - 10.5 mg/dL [facility] Est Glomerular Filtration Rate 104 >=60 mL/min/1. 73 m?? [facility] Comment: This patient? s estimated [...] In Lab Radha Bolden MD CHEMISTRY ORDERABLES [facility] [place] [address] * XR Chest One View (11/02/2020 6:10 PM EST) Anatomical Region Laterality Modality Chest N/A Digital Radiogra phy Impressions 11/02/2020 6:40 PM EST No acute cardiopulmonary abnormality. Thank you for letting us participate in the care of this patient. For questions regarding this report, please contact the number below. ? Electronically signed by: Caleb Branch MD, [facility] ([phone]), at 11/02/2020 6:40 PM Narrative 11/02/2020 6:40 [...] below. Electronically signed by: Caleb Branch MD, [facility]([phone]), at 11/02/2020 6:40 PM Gaurav Shoemaker MD IMG DX ORDERABLES * (ABNORMAL) Differential, Automated (11/02/2020 3:52 AM EST) Neutrophil % 63.2 % [facility] Neutrophil Absolute 4.39 1.70 - 6.10 x10(3)/mc L [facility] Lymph % 19.4 % [facility] Lymphocytes Abs 1.4 0.9 - 3.2 x10(3)/mc L [facility] Monocyte % 13.9 % [facility] Monocyte Abs 1.0(H) 0.3 - 0.9 x10(3)/mc L [facility] Eos % 2.7 % [facility] Eosinophils Abs 0.2 0.0 - 0.4 x10(3)/mc L [facility] Basophil % 0.4 % [facility] Baso Absolute 0.0 0.0 - 0.1 x10(3)/ L [facility] Immature Gran % 0.40 % [facility] Comment: Immature granulocytes(IG's)percentage and absolute count will include metamyelocytes, myelocytes, and promyelocytes. Blood smears from CBCs yielding IG's will be scanned manually for concordance. If this scan disagrees with the automated IG or if promyelocytes are noted, a manual differential will be performed. Immature Gran Absolute 0.03 0.00 - 0.04 x10(3)/[facility] LAB[facility]ATORY Blood specimen (specimen) 11/02/2020 3:52 AM EST 11/02/2020 4:01 AM EST Narrative Resulting Agency Comment Spec In Lab Noble Rodriguez MD HEMATOLOGY ORDERABLE S [facility] [place] [address] * (ABNORMAL) Hemogram (11/02/2020 3:52 AM EST) White Blood Cell 7.0 4.0 - 9.5 x10(3)/[facility] LABORATORY Red Blood Cell 3.39(L) 4.58 - 5.54 x10(6)/ L [facility] Hemoglobin 10.3(L) 13.7 - 16.5 gm/dL [facility] Hematocrit 30.4(L) 40.5 - 48.5 % [facility] Mean Cell Volume 89.7 82.9 - 93.1 fL [facility] Mean Cell Hemoglobin 30.4 27.5 - 32.1 pg [facility] Mean Cell Hemoglobin Concentration 33.9 32.0 - 35.7 gm/dL [facility] Platelet 188 145 - 357 x10(3)/ L [facility] RDW Standard Deviation 39.9 36.0 - 45.0 fL [facility] RDW coefficient of variation 12.2 11.4 - 13.8 % [facility] Mean Platelet Volume 10.6 7.6 - 12.9 fL [facility] NRBC% auto 0.0 % [facility] NRBC Absolute 0.000 0.000 - 0.000 x10(3)/mc L [facility] Blood specimen (specimen) 11/02/2020 3:52 AM EST 11/02/2020 4:01 AM EST Narrative Resulting Agency Comment Spec In Lab Noble Rodriguez MD HEMATOLOGY ORDERABLE S Performing Organization Address City/[facility]/ZIP Co de Phone Number [facility] [place] [address] * Phosphorus (11/02/2020 3:52 AM EST) Phosphorus 4.0 2.5 - 4.5 mg/dL [facility] Blood specimen (specimen) 11/02/2020 3:52 AM EST 11/02/2020 4:01 AM EST Narrative Resulting Agency Comment Spec In Lab Radha Bolden MD CHEMISTRY ORDERABLES Performing Organization Address [facility] Co de Phone Number [facility] [place] [address] * Magnesium (11/02/2020 3:52 AM EST) Magnesium 0.82 0.69 - 1.07 mmol/L [facility] Blood specimen (specimen) 11/02/2020 3:52 AM EST 11/02/2020 4:01 AM EST Narrative Resulting Agency Comment Spec In Lab Radha Bolden MD CHEMISTRY ORDERABLES Performing Organization Address [facility] Co de Phone Number [facility] [place] [address] * (ABNORMAL) Basic Metabolic Panel (non-fasting) (11/02/2020 3:52 AM EST) Glucose 89 65 - 199 mg/dL [facility] Comment:Diabetes: >=200 mg/d L plus symptoms Blood Urea Nitrogen 24(H) 10 - 20 mg/dL [facility] Creatinine 0.83 0.80 - 1.50 mg/dL [facility] Sodium 136 135 - 145 mmol/L [facility] Potassium 4.4 3.5 - 5.0 mmol/L [facility] Comment: Please note: ??Patients with WBC >100,000 may have falsely elevated Potassium levels. ??For accurate Potassium quantification in these patients send serum separator tube (gold top) for subsequent determinations. ??Contact the Clinical Chemistry Laboratory if there are any questions. Chloride 103 98 - 107 mmol/L [facility] Carbon Dioxide 21(L) 22 - 31 mmol/L [facility] Anion Gap 12 5 - 15 mmol/L [facility] Calcium 8.2(L) 8.5 - 10.5 mg/dL [facility] Est Glomerular Filtration Rate 100 >=60 mL/min/1. 73 m?? [facility] Comment: This patient? s estimated [...] In Lab Radha Bolden MD CHEMISTRY ORDERABLES [facility] [place] [address] * XR Abdomen 1 view (Generic) (11/01/2020 3:59 PM EST) Anatomical Region Laterality Modality Abdomen N/A Digital Radiogra phy Impressions 11/01/2020 4:03 PM EST Dobbhoff catheter, as above. Thank you for letting us participate in the care of this patient. For questions regarding this report, please contact the number below. ? Electronically signed by: Killian Bob MD, [facility] ([phone]), at 11/01/2020 4:03 PM Narrative 11/01/2020 4:03 [...] below. Electronically signed by: Killian Bob MD, [facility]([phone]), at 11/01/2020 4:03 PM Gaurav Shoemaker MD [...] ? Electronically signed by: Lili Burgos MD, [facility] ([phone]), at 11/01/2020 4:19 PM Narrative 11/01/2020 4:19 PM EST EXAMINATION: XR CHEST ONE VIEW CLINICAL HISTORY: febrile, tachycardic, TECHNIQUE: 1 view of the chest COMPARISON: Chest radiograph 10/30/2020 FINDINGS: Enteric tube seen along the course of the esophagus with distal tip outside the [id number] beyond the GE junction. Partially visualized cervical [...] of the esophagus with distal tipoutside the [id number] beyond the GE junction. Partially visualized cervicalfusion [...] below. Electronically signed by: Lili Burgos MD, [facility]([phone]), at 11/01/2020 4:19 PM Gaurav Shoemaker MD IMG DX ORDERABLES * (ABNORMAL) Urinalysis Microscopic Exam (11/01/2020 10:30 AM EST) RBC, Urine 12(H) 0 - 3 /HPF [facility] WBC, Urine 4(H) 0 - 3 /HPF [facility] Bacteria, Urine Few(A) None /HPF [facility] Transitional Epithelial Cells, Urine <1 <=1 /HPF [facility] Uric Acid Crystal, Urine Occasiona l(A) None /HPF [facility] Urine specimen obtained via indwelling urinary catheter (specimen) 11/01/2020 10:30 AM EST 11/01/2020 10:39 AM EST Narrative Resulting Agency Comment Spec In Lab Bhumi Corley MD URINE ORDERABLES [facility] [place] [address] * (ABNORMAL) Urinalysis with reflex Culture (11/01/2020 10:30 AM EST) Glucose, Urine Dipstick Negative Negative mg/dL [facility] Protein, Urine Dipstick 30(A) Negative mg/dL [facility] Bilirubin, Urine Dipstick Negative Negative mg/dL [facility] Comment: Clinical correlation required for positive Urine Bilirubin results as false positive may occur with some drugs and drug related products. If a false positive is suspected a serum total bilirubin should be considered if clinically indicated. Urobilinogen, Urine Dipstick Normal Normal mg/dL [facility] pH, Urn (dipstick) 6.0 5.0 - 8.0 [facility] Blood, Urine Dipstick Moderate(A) Negative mg/dL [facility] Ketone, Urine Dipstick 15(A) Negative mg/dL [facility] Nitrite, Urine Dipstick Negative Negative [facility] Leukocytes, Urine Dipstick Negative Negative [facility] Appearance, Urine Dipstick Clear Clear [facility] Specific [place] Urine Automated >=1.030(A) 1.006 - 1.030 [facility] Color, Urine Dipstick Yellow Yellow [facility] Reflex to Culture No [facility] Urine specimen obtained via indwelling urinary catheter (specimen) 11/01/2020 10:30 AM EST 11/01/2020 10:39 AM EST Narrative Resulting Agency Comment Spec In Lab Gaurav Shoemaker MD URINE ORDERABLES Performing Organization Address City/[facility]/ZIP Co de Phone Number [facility] [place] [address] * Blood culture (11/01/2020 5:56 AM EST) Blood Culture No growth at 5 days. [facility] Blood specimen (specimen) 11/01/2020 5:56 AM EST 11/01/2020 7:38 AM EST Narrative Resulting Agency Comment Spec In Lab Gaurav Shoemaker MD MICROBIOLOGY - BLOOD ORDERABLES Performing Organization Address [facility] Co de Phone Number [facility] [place] [address] * (ABNORMAL) Comprehensive metabolic panel (non-fasting) (11/01/2020 5:47 AM EST) Glucose Not Perf 65 - 199 [facility] Comment: Duplicate order Diabetes: >=200 mg/dL plus symptoms Blood Urea Nitrogen Not Perf 10 - 20 [facility] Comment:Duplicate order Creatinine Not Perf 0.80 - 1.50 [facility] Comment:Duplicate order Sodium Not Perf 135 - 145 [facility] Comment:Duplicate order Potassium Not Perf 3.5 - 5.0 [facility] Comment: Duplicate order Please note: ??Patients with WBC >100,000 may have falsely elevated Potassium levels. ??For accurate Potassium quantification in these patients send serum separator tube (gold top) for subsequent determinations. ??Contact the Clinical Chemistry Laboratory if there are any questions. Chloride Not Perf 98 - 107 [facility] Comment:Duplicate order Carbon Dioxide Not Perf 22 - 31 [facility] Comment:Duplicate order Anion Gap Not Calculated 5 - 15 mmol/L [facility] Comment:Duplicate order Calcium Not Perf 8.5 - 10.5 [facility] Comment:Duplicate order Protein, Total 5.6(L) 6.1 - 8.0 gm/dL [facility] Albumin 2.8(L) 3.2 - 5.2 gm/dL [facility] Aspartate Aminotransferase 36 0 - 39 unit/L [facility] Alanine Aminotransferase 32 0 - 55 unit/L [facility] Alkaline Phosphatase 58 40 - 130 unit/L [facility] Bilirubin, Total 0.4 0.2 - 1.3 mg/dL [facility] Est Glomerular Filtration Rate Not Calculated >=60 [facility] Comment:Duplicate order Blood specimen (specimen) 11/01/2020 5:47 AM EST 11/01/2020 6:06 AM EST Narrative Resulting Agency Comment Spec In Lab Gaurav Shoemaker MD CHEMISTRY ORDERABLES [facility] [place] [address] * Differential, Automated (11/01/2020 5:47 AM EST) Neutrophil % 67.7 % [facility] Neutrophil Absolute 4.41 1.70 - 6.10 x10(3)/[facility] Lymph % 19.1 % [facility] Lymphocytes Abs 1.2 0.9 - 3.2 x10(3)/[facility] Monocyte % 12.6 % [facility] Monocyte Abs 0.8 0.3 - 0.9 x10(3)/[facility] Eos % 0.2 % [facility] Eosinophils Abs 0.0 0.0 - 0.4 x10(3)/[facility] Basophil % 0.2 % [facility] Baso Absolute 0.0 0.0 - 0.1 x10(3)/[facility] Immature Gran % 0.20 % [facility] Comment: Immature granulocytes(IG's)percentage and absolute count will include metamyelocytes, myelocytes, and promyelocytes. Blood smears from CBCs yielding IG's will be scanned manually for concordance. If this scan disagrees with the automated IG or if promyelocytes are noted, a manual differential will be performed. Immature Gran Absolute 0.01 0.00 - 0.04 x10(3)/mcL [facility] Blood specimen (specimen) 11/01/2020 5:47 AM EST 11/01/2020 6:04 AM EST Narrative Resulting Agency Comment Spec In Lab Bhumi Corley MD HEMATOLOGY ORDERABLE S Performing Organization Address City/State/[facility] Co de Phone Number [facility] [place] [address] * (ABNORMAL) Hemogram (11/01/2020 5:47 AM EST) White Blood Cell 6.5 4.0 - 9.5 x10(3)/[facility] LABORATORY Red Blood Cell 3.43(L) 4.58 - 5.54 x10(6)/[facility] LABORATORY Hemoglobin 10.6(L) 13.7 - 16.5 gm/dL [facility] Hematocrit 30.9(L) 40.5 - 48.5 % [facility] Mean Cell Volume 90.1 82.9 - 93.1 fL [facility] Mean Cell Hemoglobin 30.9 27.5 - 32.1 pg [facility] Mean Cell Hemoglobin Concentration 34.3 32.0 - 35.7 gm/dL [facility] Platelet 185 145 - 357 x10(3)/[facility] LABORATORY RDW Standard Deviation 39.7 36.0 - 45.0 [facility] LABORATORY RDW coefficient of variation 12.2 11.4 - 13.8 % [facility] Mean Platelet Volume 10.9 7.6 - 12.9 [facility] LAB[facility]ORY NRBC% auto 0.0 % [facility] NRBC Absolute 0.000 0.000 - 0.000 x10(3)/[facility] LABORATORY Blood specimen (specimen) 11/01/2020 5:47 AM EST 11/01/2020 6:04 AM EST Narrative Resulting Agency Comment Spec In Lab Bhumi Corley MD HEMATOLOGY ORDERABLE S [facility] [place] [address] * (ABNORMAL) Basic Metabolic Panel (non-fasting) (11/01/2020 5:47 AM EST) Glucose 92 65 - 199 mg/dL [facility] Comment:Diabetes: >=200 mg/d L plus symptoms Blood Urea Nitrogen 19 10 - 20 mg/dL [facility] Creatinine 1.13 0.80 - 1.50 mg/dL [facility] Sodium 132(L) 135 - 145 mmol/L [facility] Potassium 3.7 3.5 - 5.0 mmol/L [facility] Comment: Please note: ??Patients with WBC >100,000 may have falsely elevated Potassium levels. ??For accurate Potassium quantification in these patients send serum separator tube (gold top) for subsequent determinations. ??Contact the Clinical Chemistry Laboratory if there are any questions. Chloride 101 98 - 107 mmol/L [facility] Carbon Dioxide 21(L) 22 - 31 mmol/L [facility] Anion Gap 10 5 - 15 mmol/L [facility] Calcium 8.0(L) 8.5 - 10.5 mg/dL [facility] Est Glomerular Filtration Rate 74 >=60 mL/min/1. 73 m?? [facility] Comment: This patient? s estimated [...] Shoemaker MD CHEMISTRY ORDERABLES Performing Organization Address [facility] Phone Number [facility] [place] [address] * (ABNORMAL) Blood culture (11/01/2020 5:47 AM EST) Blood Culture Coagulase negative Staphylococcus species detected by PCR Interpretation of the importance of skin daphne such as Coagulase Negative Staph, Viridans Strep, Corynebacteria and other Gram Positive organisms from a single Blood Culture set requires clinical correlation. (A) [facility] Gram Stain Aerobic Growth detected in aerobic bottle. Gram Positive Cocci in clusters seen (A) [facility] Organism Coagulase negative Staphylococcus species(A) [facility] Organism Gram Positive Cocci in clusters(A) [facility] Blood specimen (specimen) STRUCTURE OF RIGHT HAND / Unknown 11/01/2020 5:47 AM EST 11/01/2020 7:40 AM EST Narrative Resulting Agency Comment Spec In Lab Gaurav Shoemaker MD MICROBIOLOGY - BLOOD ORDERABLES Performing Organization Address [facility] Phone Number [facility] [place] [address] * POCT Glucose (11/01/2020 5:23 AM EST) Glucose, POC 105 65 - 199 mg/dL [facility] Comment: Supplemental ranges: <140 mg/dL before meals <180 mg/dL all other times of the day Blood specimen (specimen) 11/01/2020 5:23 AM EST 11/01/2020 5:23 AM EST Gaurav Shoemaker MD POINT OF CARE TEST O RDERABLES Performing Organization Address [facility]/ZIP Co de Phone Number [facility] [place] [address] * Phosphorus (11/01/2020 3:55 AM EST) Phosphorus 2.9 2.5 - 4.5 mg/dL [facility] Blood specimen (specimen) 11/01/2020 3:55 AM EST 11/01/2020 4:23 AM EST Narrative Resulting Agency Comment Spec In Lab Radha Bolden MD CHEMISTRY ORDERABLES Performing Organization Address [facility] de Phone Number [facility] [place] [address] * Magnesium (11/01/2020 3:55 AM EST) Magnesium 0.79 0.69 - 1.07 mmol/L [facility] Blood specimen (specimen) 11/01/2020 3:55 AM EST 11/01/2020 4:23 AM EST Narrative Resulting Agency Comment Spec In Lab Radha Bolden MD CHEMISTRY ORDERABLES Performing Organization Address [facility] de Phone Number [facility] [place] [address] * XR Fluoro Barium Swallow (Video Swallow [...] ? Electronically signed by: Lawrence Molina MD, [facility] ([phone]), at 10/31/2020 4:12 PM Narrative 10/31/2020 4:12 [...] Soft solid trigger was post piriform sinuses. [place] trigger is post piriform sinuses. With nectar [...] Soft solid trigger was post piriform sinuses. [place] trigger is post piriform sinuses. With nectar [...] 12:42 AM EST) Neutrophil % 68.8 % [facility] LABORAT[facility] Neutrophil Absolute 5.30 1.70 - 6.10 x10(3)/[facility] LABORATORY Lymph % 18.7 % [facility] LABOR[facility]ORY Lymphocytes Abs 1.4 0.9 - 3.2 x10(3)/[facility] LABORATORY Monocyte % 9.9 % [facility] LABORATORY Monocyte Abs 0.8 0.3 - 0.9 x10(3)/[facility] LABORATORY Eos % 2.0 % [facility] Eosinophils Abs 0.2 0.0 - 0.4 x10(3)/[facility] LABORATORY Basophil % 0.3 % [facility] LABORATORY Baso Absolute 0.0 0.0 - 0.1 x10(3)/[facility] LABORATORY Immature Gran % 0.30 % [facility] Comment: Immature granulocytes(IG's)percentage and absolute count will include metamyelocytes, myelocytes, and promyelocytes. Blood smears from CBCs yielding IG's will be scanned manually for concordance. If this scan disagrees with the automated IG or if promyelocytes are noted, a manual differential will be performed. Immature Gran Absolute 0.02 0.00 - 0.04 x10(3)/[facility] LABORATORY Blood specimen (specimen) 10/31/2020 12:42 AM EST 10/31/2020 1:02 AM EST Narrative Resulting Agency Comment Spec In Lab Alex Oropeza MD HEMATOLOGY ORDERABLE S [facility] [place] [address] * (ABNORMAL) Hemogram (10/31/2020 12:42 AM EST) White Blood Cell 7.7 4.0 - 9.5 x10(3)/mc L [facility] Red Blood Cell 3.00(L) 4.58 - 5.54 x10(6)/mc L [facility] Hemoglobin 9.4(L) 13.7 - 16.5 gm/dL [facility] Hematocrit 27.0(L) 40.5 - 48.5 % [facility] Mean Cell Volume 90.0 82.9 - 93.1 fL [facility] Mean Cell Hemoglobin 31.3 27.5 - 32.1 pg [facility] Mean Cell Hemoglobin Concentration 34.8 32.0 - 35.7 gm/dL [facility] Platelet 138(L) 145 - 357 x10(3)/[facility] LABORATORY RDW Standard Deviation 39.6 36.0 - 45.0 [facility] LABORATORY RDW coefficient of variation 12.1 11.4 - 13.8 % [facility] Mean Platelet Volume 11.7 7.6 - 12.9 fL [facility] NRBC% auto 0.0 % [facility] LABORATORY NRBC Absolute 0.000 0.000 - 0.000 x10(3)/ L [facility] Blood specimen (specimen) 10/31/2020 12:42 AM EST 10/31/2020 1:02 AM EST Narrative Resulting Agency Comment Spec In Lab Alex Oropeza MD HEMATOLOGY ORDERABLE S [facility] [place] [address] * (ABNORMAL) Basic Metabolic Panel (non-fasting) (10/31/2020 12:42 AM EST) Pathologist [facility] Glucose 97 65 - 199 mg/dL [facility] Comment:Diabetes: >=200 mg/d L plus symptoms Blood Urea Nitrogen 15 10 - 20 mg/dL [facility] Creatinine 0.78(L) 0.80 - 1.50 mg/dL [facility] Sodium 135 135 - 145 mmol/L [facility] Potassium 3.8 3.5 - 5.0 mmol/L [facility] Comment: Please note: ??Patients with WBC >100,000 may have falsely elevated Potassium levels. ??For accurate Potassium quantification in these patients send serum separator tube (gold top) for subsequent determinations. ??Contact the Clinical Chemistry Laboratory if there are any questions. Chloride 105 98 - 107 mmol/L [facility] Carbon Dioxide 24 22 - 31 mmol/L [facility] Anion Gap 6 5 - 15 mmol/L [facility] Calcium 7.5(L) 8.5 - 10.5 mg/dL [facility] Est Glomerular Filtration Rate 103 >=60 mL/min/1. 73 m?? [facility] Comment: This patient? s estimated [...] In Lab Radha Bolden MD CHEMISTRY ORDERABLES [facility] [place] [address] * (ABNORMAL) Phosphorus (10/31/2020 12:42 AM EST) Phosphorus 2.2(L) 2.5 - 4.5 mg/dL [facility] Blood specimen (specimen) 10/31/2020 12:42 AM EST 10/31/2020 1:02 AM EST Narrative Resulting Agency Comment Spec In Lab Radha Bolden MD CHEMISTRY ORDERABLES Performing Organization Address [facility] Phone Number [facility] [place] [address] * Magnesium (10/31/2020 12:42 AM EST) Magnesium 0.72 0.69 - 1.07 mmol/L [facility] Blood specimen (specimen) 10/31/2020 12:42 AM EST 10/31/2020 1:02 AM EST Narrative Resulting Agency Comment Spec In Lab Radha Bolden MD CHEMISTRY ORDERABLES Performing Organization Address [facility] Phone Number [facility] [place] [address] * POCT Glucose (10/30/2020 7:40 PM EST) Pathologist [facility] Glucose, POC 95 65 - 199 mg/dL [facility] Comment: Supplemental ranges: <140 mg/dL before meals <180 mg/dL all other times of the day Blood specimen (specimen) 10/30/2020 7:40 PM EST 10/30/2020 7:40 PM EST Gaurav Shoemaker MD POINT OF CARE TEST O RDERABLES Performing Organization Address [facility] Phone Number [facility] [place] [address] * Electrolytes panel (10/30/2020 6:15 PM EST) Sodium 135 135 - 145 mmol/L [facility] Potassium 4.1 3.5 - 5.0 mmol/L [facility] Comment: Please note: ??Patients with WBC >100,000 may have falsely elevated Potassium levels. ??For accurate Potassium quantification in these patients send serum separator tube (gold top) for subsequent determinations. ??Contact the Clinical Chemistry Laboratory if there are any questions. Chloride 104 98 - 107 mmol/L [facility] Carbon Dioxide 24 22 - 31 mmol/L [facility] Anion Gap 7 5 - 15 mmol/L [facility] Blood specimen (specimen) 10/30/2020 6:15 PM EST 10/30/2020 6:24 PM EST Narrative Resulting Agency Comment Spec In Lab Gaurav Shoemaker MD CHEMISTRY ORDERABLES Performing Organization Address City/[facility]/ZIP Co de Phone Number [facility] [place] [address] * Osmolality (10/30/2020 4:55 PM EST) Osmolality 281 275 - 295 mOsm/kg [facility] Blood specimen (specimen) 10/30/2020 4:55 PM EST 10/30/2020 5:32 PM EST Narrative Resulting Agency Comment Spec In Lab Gaurav Shoemaker MD CHEMISTRY ORDERABLES Performing Organization Address [facility] Co de Phone Number [facility] [place] [address] * Osmolality, urine, random (10/30/2020 4:36 PM EST) Osmolality, Urine 991 50 - 1,200 mOsm/kg [facility] Urine specimen (specimen) 10/30/2020 4:36 PM EST 10/30/2020 5:49 PM EST Narrative Resulting Agency Comment Spec In Lab Gaurav Shoemaker MD URINE ORDERABLES Performing Organization Address [facility] Co de Phone Number [facility] [place] [address] * Electrolytes, urine, random (10/30/2020 4:36 PM EST) Sodium, Urine 60 mmol/L [facility] Potassium, Urine 43 mmol/L [facility] Chloride, Urine 48 mmol/L [facility] Urine specimen (specimen) 10/30/2020 4:36 PM EST 10/30/2020 5:49 PM EST Narrative Resulting Agency Comment Spec In Lab Gaurav Shoemaker MD URINE ORDERABLES Performing Organization Address City/State/[facility] Co de Phone Number [facility] [place] [address] * XR Chest One View (10/30/2020 4:35 [...] ? Electronically signed by: Rajinder Lam MD, [facility] ([phone]), at 10/30/2020 5:22 PM Narrative 10/30/2020 5:22 [...] below. Electronically signed by: Rajinder Lam MD, [facility]([phone]), at 10/30/2020 5:22 PM Gaurav Shoemaker MD IMG DX ORDERABLES * (ABNORMAL) BLOOD GAS 2 ARTERIAL (10/30/2020 3:19 PM EST) pH, Arterial 7.43 7.35 - 7.45 [facility] PCO2, Arterial 36 35 - 45 mmHg [facility] PO2, Arterial 64(L) 85 - 104 mmHg [facility] Bicarbonate, Arterial 23.4 20.0 - 26.0 mmol/L [facility] Base Excess, Arterial -0.8 -3.0 - 3.0 mmol/L [facility] Hgb Blood Gas 10.8(L) 13.7 - 16.5 gm/dL [facility] Oxyhemoglobin, Arterial 91.0(L) 94.0 - 97.0 % [facility] Carboxyhemoglob in, Arterial 0.3 % [facility] Comment: Nonsmokers: 0.5-1.5% COHB Smokers: Variable, but usually less than 10% Toxic: 20-30% COHB Lethal: Greater than 60% COHB Methemoglobin, Arterial 0.6 <=1.5 % [facility] Na Whole Blood 132(L) 135 - 145 mmol/L [facility] K Whole Blood 3.5 3.5 - 5.0 mmol/L [facility] Comment: Please note: Patients with WBC >100,000 may have falsely elevated Potassium levels. Contact the Clinical Chemistry Laboratory if there are any questions. ICa Whole Blood 1.11(L) 1.15 - 1.33 mmol/L [facility] Comment: Note: ??Total bilirubin higher than 20 mg/dL may lead to falsely low ionized calcium. CL Whole Blood 103 98 - 107 mmol/L [facility] Gluc Whole Bld 121 65 - 199 mg/dL [facility] Comment:Diabetes: >=200 mg/d L plus symptoms. Lactate WB 0.8 0.5 - 2.2 mmol/L [facility] FIO2 Art 21 % [facility] PF Ratio Art 305 [facility] Blood specimen (specimen) 10/30/2020 3:19 PM EST 10/30/2020 3:19 PM EST Gaurav Shoemaker MD POINT OF CARE TEST O RDERABLES Performing Organization Address [facility] Co de Phone Number [facility] [place] [address] * (ABNORMAL) CK (10/30/2020 1:15 PM EST) Creatine Kinase 333(H) 0 - 200 unit/L [facility] Blood specimen (specimen) 10/30/2020 1:15 PM EST 10/30/2020 1:28 PM EST Narrative Resulting Agency Comment Spec In Lab Gaurav Shoemaker MD CHEMISTRY ORDERABLES Performing Organization Address [facility] Co de Phone Number [facility] [place] [address] * (ABNORMAL) Basic Metabolic Panel (non-fasting) (10/30/2020 1:15 PM EST) Glucose 118 65 - 199 mg/dL [facility] Comment:Diabetes: >=200 mg/d L plus symptoms Blood Urea Nitrogen 17 10 - 20 mg/dL [facility] Creatinine 0.81 0.80 - 1.50 mg/dL [facility] Sodium 133(L) 135 - 145 mmol/L [facility] Potassium 3.7 3.5 - 5.0 mmol/L [facility] Comment: Please note: ??Patients with WBC >100,000 may have falsely elevated Potassium levels. ??For accurate Potassium quantification in these patients send serum separator tube (gold top) for subsequent determinations. ??Contact the Clinical Chemistry Laboratory if there are any questions. Chloride 103 98 - 107 mmol/L [facility] Carbon Dioxide 24 22 - 31 mmol/L [facility] Anion Gap 6 5 - 15 mmol/L [facility] Calcium 7.0(L) 8.5 - 10.5 mg/dL [facility] Est Glomerular Filtration Rate 101 >=60 mL/min/1. 73 m?? [facility] Comment: This patient? s estimated [...] In Lab Gaurav Shoemaker MD CHEMISTRY ORDERABLES [facility] [place] [address] * (ABNORMAL) Differential, Automated (10/30/2020 1:05 AM EST) Pathologist [facility] Neutrophil % 74.4 % [facility] Neutrophil Absolute 7.02(H) 1.70 - 6.10 x10(3)/[facility] LABORATORY Lymph % 13.4 % [facility] Lymphocytes Abs 1.3 0.9 - 3.2 x10(3)/[facility] LABORATORY Monocyte % 11.5 % [facility]ORY Monocyte Abs 1.1(H) 0.3 - 0.9 x10(3)/[facility] LABORATORY Eos % 0.2 % [facility] Eosinophils Abs 0.0 0.0 - 0.4 x10(3)/[facility] LABORATORY Basophil % 0.2 % [facility] Baso Absolute 0.0 0.0 - 0.1 x10(3)/[facility] LABORATORY Immature Gran % 0.30 % [facility] Comment: Immature granulocytes(IG's)percentage and absolute count will include metamyelocytes, myelocytes, and promyelocytes. Blood smears from CBCs yielding IG's will be scanned manually for concordance. If this scan disagrees with the automated IG or if promyelocytes are noted, a manual differential will be performed. Immature Gran Absolute 0.03 0.00 - 0.04 x10(3)/[facility] LABORATORY Blood specimen (specimen) 10/30/2020 1:05 AM EST 10/30/2020 1:24 AM EST Narrative Resulting Agency Comment Spec In Lab Alex Oropeza MD HEMATOLOGY ORDERABLE S [facility] [place] [address] * (ABNORMAL) Hemogram (10/30/2020 1:05 AM EST) [facility] White Blood Cell 9.4 4.0 - 9.5 x10(3)/[facility] LABORATORY Red Blood Cell 3.38(L) 4.58 - 5.54 x10(6)/[facility] LABORATORY Hemoglobin 10.3(L) 13.7 - 16.5 gm/dL [facility] Hematocrit 30.2(L) 40.5 - 48.5 % [facility] Mean Cell Volume 89.3 82.9 - 93.1 [facility] LABORATORY Mean Cell Hemoglobin 30.5 27.5 - 32.1 pg [facility] Mean Cell Hemoglobin Concentration 34.1 32.0 - 35.7 gm/dL [facility] Platelet 159 145 - 357 x10(3)/[facility] LABORATORY RDW Standard Deviation 39.8 36.0 - 45.0 [facility] LABORATORY RDW coefficient of variation 12.2 11.4 - 13.8 % [facility] Mean Platelet Volume 11.6 7.6 - 12.9 [facility] LABORATORY NRBC% auto 0.0 % [facility] LABORATORY NRBC Absolute 0.000 0.000 - 0.000 x10(3)/[facility] LABORATORY Blood specimen (specimen) 10/30/2020 1:05 AM EST 10/30/2020 1:24 AM EST Narrative Resulting Agency Comment Spec In Lab Alex Oropeza MD HEMATOLOGY ORDERABLE S [facility] [place] [address] * (ABNORMAL) Basic Metabolic Panel (non-fasting) (10/30/2020 1:05 AM EST) Glucose 108 65 - 199 mg/dL [facility] Comment:Diabetes: >=200 mg/d L plus symptoms Blood Urea Nitrogen 15 10 - 20 mg/dL [facility] Creatinine 0.87 0.80 - 1.50 mg/dL [facility] Sodium 136 135 - 145 mmol/L [facility] Potassium 3.7 3.5 - 5.0 mmol/L [facility] Comment: Please note: ??Patients with WBC >100,000 may have falsely elevated Potassium levels. ??For accurate Potassium quantification in these patients send serum separator tube (gold top) for subsequent determinations. ??Contact the Clinical Chemistry Laboratory if there are any questions. Chloride 105 98 - 107 mmol/L [facility] Carbon Dioxide 24 22 - 31 mmol/L [facility] Anion Gap 7 5 - 15 mmol/L [facility] Calcium 7.5(L) 8.5 - 10.5 mg/dL [facility] Est Glomerular Filtration Rate 99 >=60 mL/min/1. 73 m?? [facility] Comment: This patient? s estimated [...] In Lab Radha Bolden MD CHEMISTRY ORDERABLES [facility] [place] [address] * (ABNORMAL) Phosphorus (10/30/2020 1:05 AM EST) Phosphorus 1.8(L) 2.5 - 4.5 mg/dL [facility] Blood specimen (specimen) 10/30/2020 1:05 AM EST 10/30/2020 1:24 AM EST Narrative Resulting Agency Comment Spec In Lab Radha Bolden MD CHEMISTRY ORDERABLES Performing Organization Address [facility]/ZIP Co de Phone Number [facility] [place] [address] * Magnesium (10/30/2020 1:05 AM EST) Magnesium 0.77 0.69 - 1.07 mmol/L [facility] Blood specimen (specimen) 10/30/2020 1:05 AM EST 10/30/2020 1:24 AM EST Narrative Resulting Agency Comment Spec In Lab Radha Bolden MD CHEMISTRY ORDERABLES Performing Organization Address [facility] Co de Phone Number [facility] [place] [address] * (ABNORMAL) Phosphorus (10/29/2020 12:18 PM EST) Phosphorus 1.9(L) 2.5 - 4.5 mg/dL [facility] Blood specimen (specimen) 10/29/2020 12:18 PM EST 10/29/2020 12:36 PM EST Narrative Resulting Agency Comment Spec In Lab Yoel Medellin MD CHEMISTRY ORDERABLES Performing Organization Address [facility] Co de Phone Number [facility] [place] [address] * (ABNORMAL) Urinalysis Microscopic Exam (10/29/2020 12:03 PM EST) RBC, Urine 3 0 - 3 /HPF [facility] WBC, Urine 6(H) 0 - 3 /HPF [facility] Bacteria, Urine Rare(A) None /HPF [facility] Squamous Epithelial Cells Raw Data, Urine 4 <=4 /HPF [facility] Renal Epithelial Cells, Urine 1(H) <=0 /HPF [facility] Comment: Interpret results with caution, microscopic results are from suboptimal specimen volume Hyaline Casts, Urine 4(H) 0 - 2 /LPF [facility] Urine specimen obtained via indwelling urinary catheter (specimen) 10/29/2020 12:03 PM EST 10/29/2020 12:37 PM EST Narrative Resulting Agency Comment Spec In Lab Neida Omalley MD URINE ORDERABLES [facility] [place] [address] * (ABNORMAL) Urinalysis with reflex Culture (10/29/2020 12:03 PM EST) Glucose, Urine Dipstick Negative Negative mg/dL [facility] Protein, Urine Dipstick Trace(A) Negative mg/dL [facility] Bilirubin, Urine Dipstick Negative Negative mg/dL [facility] Comment: Clinical correlation required for positive Urine Bilirubin results as false positive may occur with some drugs and drug related products. If a false positive is suspected a serum total bilirubin should be considered if clinically indicated. Urobilinogen, Urine Dipstick Normal Normal mg/dL [facility] pH, Urn (dipstick) 6.0 5.0 - 8.0 [facility] Blood, Urine Dipstick Trace(A) Negative mg/dL [facility] Ketone, Urine Dipstick 40(A) Negative mg/dL [facility] Nitrite, Urine Dipstick Negative Negative [facility] Leukocytes, Urine Dipstick Negative Negative [facility] Appearance, Urine Dipstick Clear Clear [facility] Specific [place] Urine Automated >=1.030(A) 1.006 - 1.030 [facility] Color, Urine Dipstick Yellow Yellow [facility] Reflex to Culture No [facility] Urine specimen obtained via indwelling urinary catheter (specimen) 10/29/2020 12:03 PM EST 10/29/2020 12:37 PM EST Narrative Resulting Agency Comment Spec In Lab Yoel Medellin MD URINE ORDERABLES Performing Organization Address City/[facility]/[place] [address] * Blood culture (10/29/2020 6:10 AM EST) Blood Culture No growth at 5 days. [facility] Blood specimen (specimen) STRUCTURE OF RIGHT HAND / Unknown 10/29/2020 6:10 AM EST 10/29/2020 6:38 AM EST Narrative Resulting Agency Comment Spec In Lab Yoel Medellin MD MICROBIOLOGY - BLOOD ORDERABLES Performing Organization Address [facility] Co [place] [address] * Blood culture (10/29/2020 6:10 AM EST) Blood Culture No growth at 5 days. [facility] Blood specimen (specimen) STRUCTURE OF LEFT UPPER LIMB / Unknown 10/29/2020 6:10 AM EST 10/29/2020 6:39 AM EST Narrative Resulting Agency Comment Spec In Lab Yoel Medellin MD MICROBIOLOGY - BLOOD ORDERABLES Performing Organization Address [facility] [place] [address] * XR Chest One View (10/29/2020 6:07 [...] course of the esophagus courses off the [id number] inferiorly over the abdomen. Thank you for letting us participate in the care of this patient. For questions regarding this report, please contact the number below. ? Electronically signed by: Allen García MD, [facility] ([phone]), at 10/29/2020 6:35 AM Narrative 10/29/2020 6:35 [...] expected course of the esophagus coursesoff the [id number] inferiorly over the abdomen. Thank you for letting us participate in the care of this patient. Forquestions regarding this report, please contact the number below. Electronically signed by: Allen García MD, [facility]([phone]), at 10/29/2020 6:35 AM Yoel Medellin MD IMG DX ORDERABLES * Differential, Automated (10/29/2020 12:50 AM EST) Neutrophil % 79.9 % [facility] Neutrophil Absolute 5.96 1.70 - 6.10 x10(3)/[facility] Lymph % 11.6 % [facility] Lymphocytes Abs 0.9 0.9 - 3.2 x10(3)/[facility] Monocyte % 8.0 % [facility] Monocyte Abs 0.6 0.3 - 0.9 x10(3)/[facility] Eos % 0.0 % [facility] Eosinophils Abs 0.0 0.0 - 0.4 x10(3)/[facility] Basophil % 0.1 % [facility] Baso Absolute 0.0 0.0 - 0.1 x10(3)/[facility] Immature Gran % 0.40 % [facility] Comment: Immature granulocytes(IG's)percentage and absolute count will include metamyelocytes, myelocytes, and promyelocytes. Blood smears from CBCs yielding IG's will be scanned manually for concordance. If this scan disagrees with the automated IG or if promyelocytes are noted, a manual differential will be performed. Immature Gran Absolute 0.03 0.00 - 0.04 x10(3)/[facility] Blood specimen (specimen) 10/29/2020 12:50 AM EST 10/29/2020 1:03 AM EST Narrative Resulting Agency Comment Spec In Lab Alex Oropeza MD HEMATOLOGY ORDERABLE S Performing Organization Address City/State/[facility] Co de Phone Number [facility] [place] [address] * (ABNORMAL) Hemogram (10/29/2020 12:50 AM EST) White Blood Cell 7.5 4.0 - 9.5 x10(3)/mc L [facility] Red Blood Cell 3.64(L) 4.58 - 5.54 x10(6)/mc L [facility] Hemoglobin 11.2(L) 13.7 - 16.5 gm/dL [facility] Hematocrit 32.9(L) 40.5 - 48.5 % [facility] Mean Cell Volume 90.4 82.9 - 93.1 fL [facility] Mean Cell Hemoglobin 30.8 27.5 - 32.1 pg [facility] Mean Cell Hemoglobin Concentration 34.0 32.0 - 35.7 gm/dL [facility] Platelet 146 145 - 357 x10(3)/mc L [facility] RDW Standard Deviation 40.3 36.0 - 45.0 fL [facility] RDW coefficient of variation 12.2 11.4 - 13.8 % [facility] Mean Platelet Volume 11.4 7.6 - 12.9 fL [facility] NRBC% auto 0.0 % [facility] NRBC Absolute 0.000 0.000 - 0.000 x10(3)/mc L [facility] Blood specimen (specimen) 10/29/2020 12:50 AM EST 10/29/2020 1:03 AM EST Narrative Resulting Agency Comment Spec In Lab Alex Oropeza MD HEMATOLOGY ORDERABLE S [facility] [place] [address] * (ABNORMAL) Basic Metabolic Panel (non-fasting) (10/29/2020 12:50 AM EST) Glucose 96 65 - 199 mg/dL [facility] Comment:Diabetes: >=200 mg/d L plus symptoms Blood Urea Nitrogen 15 10 - 20 mg/dL [facility] Creatinine 0.93 0.80 - 1.50 mg/dL [facility] Sodium 136 135 - 145 mmol/L [facility] Potassium 4.2 3.5 - 5.0 mmol/L [facility] Comment: Please note: ??Patients with WBC >100,000 may have falsely elevated Potassium levels. ??For accurate Potassium quantification in these patients send serum separator tube (gold top) for subsequent determinations. ??Contact the Clinical Chemistry Laboratory if there are any questions. Chloride 105 98 - 107 mmol/L [facility] Carbon Dioxide 25 22 - 31 mmol/L [facility] Anion Gap 6 5 - 15 mmol/L [facility] Calcium 7.8(L) 8.5 - 10.5 mg/dL [facility] Est Glomerular Filtration Rate 93 >=60 mL/min/1. 73 m?? [facility] Comment: This patient? s estimated [...] Bolden MD CHEMISTRY ORDERABLES Performing Organization Address City/[facility]/ZIP Co de Phone Number [facility] [place] [address] * (ABNORMAL) Phosphorus (10/29/2020 12:50 AM EST) Phosphorus 1.6(L) 2.5 - 4.5 mg/dL [facility] Blood specimen (specimen) 10/29/2020 12:50 AM EST 10/29/2020 1:03 AM EST Narrative Resulting Agency Comment Spec In Lab Radha Bolden MD CHEMISTRY ORDERABLES [facility] [place] [address] * Magnesium (10/29/2020 12:50 AM EST) Magnesium 0.75 0.69 - 1.07 mmol/L [facility] Blood specimen (specimen) 10/29/2020 12:50 AM EST 10/29/2020 1:03 AM EST Narrative Resulting Agency Comment Spec In Lab Radha Bolden MD CHEMISTRY ORDERABLES Performing Organization Address City/[facility]/ZIP Co de Phone Number [facility] [place] [address] * Differential, Automated (10/28/2020 1:40 AM EST) Neutrophil % 78.6 % [facility] Neutrophil Absolute 5.94 1.70 - 6.10 x10(3)/[facility] Lymph % 12.6 % [facility] Lymphocytes Abs 1.0 0.9 - 3.2 x10(3)/[facility] Monocyte % 8.5 % [facility] Monocyte Abs 0.6 0.3 - 0.9 x10(3)/[facility] Eos % 0.0 % [facility] Eosinophils Abs 0.0 0.0 - 0.4 x10(3)/[facility] Basophil % 0.0 % [facility] Baso Absolute 0.0 0.0 - 0.1 x10(3)/[facility] Immature Gran % 0.30 % [facility] Comment: Immature granulocytes(IG's)percentage and absolute count will include metamyelocytes, myelocytes, and promyelocytes. Blood smears from CBCs yielding IG's will be scanned manually for concordance. If this scan disagrees with the automated IG or if promyelocytes are noted, a manual differential will be performed. Immature Gran Absolute 0.02 0.00 - 0.04 x10(3)/[facility] Blood specimen (specimen) 10/28/2020 1:40 AM EST 10/28/2020 1:46 AM EST Narrative Resulting Agency Comment Spec In Lab Alex Oropeza MD HEMATOLOGY ORDERABLE S [facility] [place] [address] * (ABNORMAL) Hemogram (10/28/2020 1:40 AM EST) Pathologist [facility] White Blood Cell 7.6 4.0 - 9.5 x10(3)/mc L [facility] Red Blood Cell 3.71(L) 4.58 - 5.54 x10(6)/mc L [facility] Hemoglobin 11.3(L) 13.7 - 16.5 gm/dL [facility] Hematocrit 33.8(L) 40.5 - 48.5 % [facility] Mean Cell Volume 91.1 82.9 - 93.1 fL [facility] Mean Cell Hemoglobin 30.5 27.5 - 32.1 pg [facility] Mean Cell Hemoglobin Concentration 33.4 32.0 - 35.7 gm/dL [facility] Platelet 136(L) 145 - 357 x10(3)/mc L [facility] RDW Standard Deviation 41.5 36.0 - 45.0 [facility] RDW coefficient of variation 12.5 11.4 - 13.8 % [facility] Mean Platelet Volume 11.3 7.6 - 12.9 fL [facility] NRBC% auto 0.0 % [facility] NRBC Absolute 0.000 0.000 - 0.000 x10(3)/ L [facility] Blood specimen (specimen) 10/28/2020 1:40 AM EST 10/28/2020 1:46 AM EST Narrative Resulting Agency Comment Spec In Lab Alex Oropeza MD HEMATOLOGY ORDERABLE S [facility] [place] [address] * Phosphorus (10/28/2020 1:40 AM EST) Pathologist [facility] Phosphorus 3.1 2.5 - 4.5 mg/dL [facility] Blood specimen (specimen) 10/28/2020 1:40 AM EST 10/28/2020 1:46 AM EST Narrative Resulting Agency Comment Spec In Lab Radha Bolden MD CHEMISTRY ORDERABLES Performing Organization Address [facility] de Phone Number [facility] [place] [address] * Magnesium (10/28/2020 1:40 AM EST) Magnesium 0.88 0.69 - 1.07 mmol/L [facility] Blood specimen (specimen) 10/28/2020 1:40 AM EST 10/28/2020 1:46 AM EST Narrative Resulting Agency Comment Spec In Lab Radha Bolden MD CHEMISTRY ORDERABLES Performing Organization Address [facility] de Phone Number [facility] [place] [phone] * (ABNORMAL) Basic Metabolic Panel (non-fasting) (10/28/2020 1:40 AM EST) Glucose 137 65 - 199 mg/dL [facility] Comment:Diabetes: >=200 mg/d L plus symptoms Blood Urea Nitrogen 14 10 - 20 mg/dL [facility] Creatinine 0.90 0.80 - 1.50 mg/dL [facility] Sodium 138 135 - 145 mmol/L [facility] Potassium 4.6 3.5 - 5.0 mmol/L [facility] Comment: Please note: ??Patients with WBC >100,000 may have falsely elevated Potassium levels. ??For accurate Potassium quantification in these patients send serum separator tube (gold top) for subsequent determinations. ??Contact the Clinical Chemistry Laboratory if there are any questions. Chloride 108(H) 98 - 107 mmol/L [facility] Carbon Dioxide 24 22 - 31 mmol/L [facility] Anion Gap 6 5 - 15 mmol/L [facility] Calcium 7.7(L) 8.5 - 10.5 mg/dL [facility] Est Glomerular Filtration Rate 97 >=60 mL/min/1. 73 m?? [facility] Comment: This patient? s estimated [...] In Lab Radha Bolden MD CHEMISTRY ORDERABLES [facility] [place] [address] * XR Cervical Spine 2 or 3 [...] ? Electronically signed by: Tim Anthony MD, [facility] ([phone]), at 10/28/2020 3:05 AM Narrative 10/28/2020 3:05 AM EST EXAMINATION: XR CERVICAL SPINE 2 OR 3 VIEWS CLINICAL HISTORY: S/P C5-T2 PSIF AP and lateral please TECHNIQUE: 3 views of the cervical spine COMPARISON: MRI C-spine dated 10/27/2020 Procedure Note Tim Anthoyn MD - 10/28/2020 EXAMINATION: XR CERVICAL SPINE [...] below. Electronically signed by: Tim Anthony MD, [facility]([phone]), at 10/28/2020 3:05 AM Yoel Medellin MD IMG DX ORDERABLES * (ABNORMAL) Hepatic Function Panel (10/27/2020 5:25 PM EST) Protein, Total 5.4(L) 6.1 - 8.0 gm/dL [facility] Albumin 3.5 3.2 - 5.2 gm/dL [facility] Aspartate Aminotransferase 80(H) 0 - 39 unit/L [facility] Alanine Aminotransferase 32 0 - 55 unit/L [facility] Alkaline Phosphatase 60 40 - 130 unit/L [facility] Bilirubin, Total 0.5 0.2 - 1.3 mg/dL [facility] Bilirubin, Direct 0.1 0.0 - 0.3 mg/dL [facility] Blood specimen (specimen) Venous Draw / Unknown 10/27/2020 5:25 PM EST 10/27/2020 6:19 PM EST Narrative Resulting Agency Comment Spec In Lab Neida Omalley MD CHEMISTRY ORDERABLES Performing Organization Address City/[facility]/ZIP Co de Phone Number [facility] [place] [address] * Potassium (10/27/2020 5:25 PM EST) Potassium 4.8 3.5 - 5.0 mmol/L [facility] Comment: Please note: ??Patients with [...] Medellin MD CHEMISTRY ORDERABLES Performing Organization Address City/[facility]/ZIP Co de Phone Number [facility] [place] [address] * Magnesium (10/27/2020 5:25 PM EST) Magnesium 0.91 0.69 - 1.07 mmol/L [facility] Blood specimen (specimen) 10/27/2020 5:25 PM EST 10/27/2020 6:15 PM EST Narrative Resulting Agency Comment Spec In Lab Yoel Medellin MD CHEMISTRY ORDERABLES Performing Organization Address City/[facility]/ZIP Co de Phone Number [facility] [place] [address] * XR Chest One View (10/27/2020 2:29 PM EST) Anatomical Region Laterality Modality Chest N/A Digital Radiogra phy Impressions 10/27/2020 2:43 PM EST Endotracheal tube is in a satisfactory position. Thank you for letting us participate in the care of this patient. For questions regarding this report, please contact the number below. ? Electronically signed by: Tre Mendez MD, [facility] ([phone]), at 10/27/2020 2:43 PM Narrative 10/27/2020 2:43 [...] ? Electronically signed by: Allen García MD, [facility] ([phone]), at 10/28/2020 7:32 AM Narrative 10/28/2020 7:32 [...] Differential, Automated (10/27/2020 1:25 PM EST) Pathologist [facility] Neutrophil % 92.4 % [facility] Neutrophil Absolute 8.31(H) 1.70 - 6.10 x10(3)/[facility] Lymph % 5.3 % [facility] Lymphocytes Abs 0.5(L) 0.9 - 3.2 x10(3)/[facility] Monocyte % 2.0 % [facility] Monocyte Abs 0.2(L) 0.3 - 0.9 x10(3)/[facility] Eos % 0.0 % [facility] Eosinophils Abs 0.0 0.0 - 0.4 x10(3)/[facility] Basophil % 0.1 % [facility] Baso Absolute 0.0 0.0 - 0.1 x10(3)/[facility] Immature Gran % 0.20 % [facility] Comment: Immature granulocytes(IG's)percentage and absolute count will include metamyelocytes, myelocytes, and promyelocytes. Blood smears from CBCs yielding IG's will be scanned manually for concordance. If this scan disagrees with the automated IG or if promyelocytes are noted, a manual differential will be performed. Immature Gran Absolute 0.02 0.00 - 0.04 x10(3)/ L [facility] Blood specimen (specimen) 10/27/2020 1:25 PM EST 10/27/2020 1:29 PM EST Narrative Resulting Agency Comment Spec In Lab Tyesha Lopez MD HEMATOLOGY ORDERABL ES [facility] [place] [address] * (ABNORMAL) Hemogram (10/27/2020 1:25 PM EST) White Blood Cell 9.0 4.0 - 9.5 x10(3)/[facility] Red Blood Cell 3.84(L) 4.58 - 5.54 x10(6)/[facility] Hemoglobin 11.7(L) 13.7 - 16.5 gm/dL [facility] Hematocrit 35.4(L) 40.5 - 48.5 % [facility] Mean Cell Volume 92.2 82.9 - 93.1 fL [facility] Mean Cell Hemoglobin 30.5 27.5 - 32.1 pg [facility] Mean Cell Hemoglobin Concentration 33.1 32.0 - 35.7 gm/dL [facility] Platelet 169 145 - 357 x10(3)/[facility] RDW Standard Deviation 42.6 36.0 - 45.0 [facility] RDW coefficient of variation 12.6 11.4 - 13.8 % [facility] Mean Platelet Volume 10.9 7.6 - 12.9 fL [facility] NRBC% auto 0.0 % [facility] NRBC Absolute 0.000 0.000 - 0.000 x10(3)/[facility] Blood specimen (specimen) 10/27/2020 1:25 PM EST 10/27/2020 1:29 PM EST Narrative Resulting Agency Comment Spec In Lab Tyesha Lopez MD HEMATOLOGY ORDERABL ES [facility] [place] [address] * Phosphorus (10/27/2020 1:25 PM EST) Phosphorus 3.6 2.5 - 4.5 mg/dL [facility] Blood specimen (specimen) 10/27/2020 1:25 PM EST 10/27/2020 1:29 PM EST Narrative Resulting Agency Comment Spec In Lab Yoel Medellin MD CHEMISTRY ORDERABLES Performing Organization Address City/[facility]/ZIP Co de Phone Number [facility] [place] [address] * (ABNORMAL) Magnesium (10/27/2020 1:25 PM EST) Pathologist [facility] Magnesium 0.61(L) 0.69 - 1.07 mmol/L [facility] Blood specimen (specimen) 10/27/2020 1:25 PM EST 10/27/2020 1:29 PM EST Narrative Resulting Agency Comment Spec In Lab Yoel Medellin MD CHEMISTRY ORDERABLES Performing Organization Address [facility] Co de Phone Number [facility] [place] [address] * (ABNORMAL) Basic Metabolic Panel (non-fasting) (10/27/2020 1:25 PM EST) Pathologist [facility] Glucose 117 65 - 199 mg/dL [facility] Comment:Diabetes: >=200 mg/d L plus symptoms Blood Urea Nitrogen 13 10 - 20 mg/dL [facility] Creatinine 1.08 0.80 - 1.50 mg/dL [facility] Sodium 137 135 - 145 mmol/L [facility] Potassium 5.3(H) 3.5 - 5.0 mmol/L [facility] Comment: result rechecked-ga Please note: ??Patients with WBC >100,000 may have falsely elevated Potassium levels. ??For accurate Potassium quantification in these patients send serum separator tube (gold top) for subsequent determinations. ??Contact the Clinical Chemistry Laboratory if there are any questions. Chloride 108(H) 98 - 107 mmol/L [facility] Carbon Dioxide 21(L) 22 - 31 mmol/L [facility] Anion Gap 8 5 - 15 mmol/L [facility] Calcium 7.6(L) 8.5 - 10.5 mg/dL [facility] Est Glomerular Filtration Rate 78 >=60 mL/min/1. 73 m?? [facility] Comment: This patient? s estimated [...] In Lab Yoel Medellin MD CHEMISTRY ORDERABLES [facility] [place] [address] * XR O-Arm No Rad <1Hr - OR Use (10/27/2020 12:00 PM EST) Anatomical Region Laterality Modality N/A Radio Fluoroscop y Impressions 10/27/2020 12:52 PM EST Dose report for intraoperative imaging. Thank you for letting us participate in the care of this patient. For questions regarding this report, please contact the number below. ? Electronically signed by: eDlfina Badillo [facility] ([phone]), at 10/27/2020 12:52 PM Narrative 10/27/2020 12:52 [...] number below. Electronically signed by: Delfina Badillo [facility]([phone]), at 10/27/2020 12:52 PM Yoel Medellin MD IMG FLUORO ORDERABLE S * (ABNORMAL) BLOOD GAS 2 ARTERIAL (10/27/2020 11:29 AM EST) pH, Arterial 7.31(L) 7.35 - 7.45 [facility] PCO2, Arterial 41 35 - 45 mmHg [facility] PO2, Arterial 153(H) 85 - 104 mmHg [facility] Bicarbonate, Arterial 20.4 20.0 - 26.0 mmol/L [facility] Base Excess, Arterial -6.2(L) -3.0 - 3.0 mmol/L [facility] Hgb Blood Gas 13.0(L) 13.7 - 16.5 gm/dL [facility] Oxyhemoglobin, Arterial 97.6(H) 94.0 - 97.0 % [facility] Carboxyhemoglob in, Arterial 0.9 % [facility] Comment: Nonsmokers: 0.5-1.5% COHB Smokers: Variable, but usually less than 10% Toxic: 20-30% COHB Lethal: Greater than 60% COHB Methemoglobin, Arterial 0.3 <=1.5 % [facility] Na Whole Blood 133(L) 135 - 145 mmol/L [facility] K Whole Blood 5.1(H) 3.5 - 5.0 mmol/L [facility] Comment: Please note: Patients with WBC >100,000 may have falsely elevated Potassium levels. Contact the Clinical Chemistry Laboratory if there are any questions. ICa Whole Blood 1.09(L) 1.15 - 1.33 mmol/L [facility] Comment: Note: ??Total bilirubin higher than 20 mg/dL may lead to falsely low ionized calcium. CL Whole Blood 110(H) 98 - 107 mmol/L [facility] Gluc Whole Bld 105 65 - 199 mg/dL [facility] Comment:Diabetes: >=200 mg/d L plus symptoms. Lactate WB 1.4 0.5 - 2.2 mmol/L [facility] FIO2 Art 42 % [facility] PF Ratio Art 364 [facility] Temp Art 35.9 Celsius [facility] Blood specimen (specimen) 10/27/2020 11:29 AM EST 10/27/2020 11:29 AM EST Yoel Medellin MD POINT OF CARE TEST O RDERABLES [facility] [place] [address] * (ABNORMAL) BLOOD GAS 2 ARTERIAL (10/27/2020 10:27 AM EST) pH, Arterial 7.32(L) 7.35 - 7.45 [facility] PCO2, Arterial 38 35 - 45 mmHg [facility] PO2, Arterial 131(H) 85 - 104 mmHg [facility] Bicarbonate, Arterial 19.8(L) 20.0 - 26.0 mmol/L [facility] Base Excess, Arterial -6.6(L) -3.0 - 3.0 mmol/L [facility] Hgb Blood Gas 13.0(L) 13.7 - 16.5 gm/dL [facility] Oxyhemoglobin, Arterial 97.5(H) 94.0 - 97.0 % [facility] Carboxyhemoglob in, Arterial 0.8 % [facility] Comment: Nonsmokers: 0.5-1.5% COHB Smokers: Variable, but usually less than 10% Toxic: 20-30% COHB Lethal: Greater than 60% COHB Methemoglobin, Arterial 0.3 <=1.5 % [facility] Na Whole Blood 134(L) 135 - 145 mmol/L [facility] K Whole Blood 4.6 3.5 - 5.0 mmol/L [facility] Comment: Please note: Patients with WBC >100,000 may have falsely elevated Potassium levels. Contact the Clinical Chemistry Laboratory if there are any questions. ICa Whole Blood 1.11(L) 1.15 - 1.33 mmol/L [facility] Comment: Note: ??Total bilirubin higher than 20 mg/dL may lead to falsely low ionized calcium. CL Whole Blood 110(H) 98 - 107 mmol/L [facility] Gluc Whole Bld 101 65 - 199 mg/dL [facility] Comment:Diabetes: >=200 mg/d L plus symptoms. Lactate WB 1.5 0.5 - 2.2 mmol/L [facility] FIO2 Art 42 % [facility] PF Ratio Art 312 [facility] Temp Art 35.1 Celsius [facility] Blood specimen (specimen) 10/27/2020 10:27 AM EST 10/27/2020 10:27 AM EST Yoel Medellin MD POINT OF CARE TEST O RDERABLES [facility] [place] [phone] * (ABNORMAL) BLOOD GAS 2 ARTERIAL (10/27/2020 9:28 AM EST) pH, Arterial 7.29(Crit ical) 7.35 - 7.45 [facility] Comment: Noted by instrument adjuster. Critical notified to Dr. Mariana Rojas by instrument adjuster immediately following run time. PCO2, Arterial 40 35 - 45 mmHg [facility] PO2, Arterial 171(H) 85 - 104 mmHg [facility] Bicarbonate, Arterial 19.6(L) 20.0 - 26.0 mmol/L [facility] Base Excess, Arterial -7.5(L) -3.0 - 3.0 mmol/L [facility] Hgb Blood Gas 13.5(L) 13.7 - 16.5 gm/dL [facility] Oxyhemoglobin, Arterial 98.0(H) 94.0 - 97.0 % [facility] Carboxyhemoglob in, Arterial 0.8 % [facility] Comment: Nonsmokers: 0.5-1.5% COHB Smokers: Variable, but usually less than 10% Toxic: 20-30% COHB Lethal: Greater than 60% COHB Methemoglobin, Arterial 0.3 <=1.5 % [facility] Na Whole Blood 135 135 - 145 mmol/L [facility] K Whole Blood 4.3 3.5 - 5.0 mmol/L [facility] Comment: Please note: Patients with WBC >100,000 may have falsely elevated Potassium levels. Contact the Clinical Chemistry Laboratory if there are any questions. ICa Whole Blood 1.15 1.15 - 1.33 mmol/L [facility] Comment: Note: ??Total bilirubin higher than 20 mg/dL may lead to falsely low ionized calcium. CL Whole Blood 108(H) 98 - 107 mmol/L [facility] Gluc Whole Bld 103 65 - 199 mg/dL [facility] Comment:Diabetes: >=200 mg/d L plus symptoms. Lactate WB 2.2 0.5 - 2.2 mmol/L [facility] FIO2 Art 43 % [facility] PF Ratio Art 398 [facility] Temp Art 34.7 Celsius [facility] Blood specimen (specimen) 10/27/2020 9:28 AM EST 10/27/2020 9:28 AM EST Yoel Medellin MD POINT OF CARE TEST O RDERAMARYAM Performing Organization Address [facility] de Phone Number [facility] [place] [address] * POCT Glucose (10/27/2020 6:19 AM EST) Glucose, POC 101 65 - 199 mg/dL [facility] Comment: Supplemental ranges: <140 mg/dL before meals <180 mg/dL all other times of the day Blood specimen (specimen) 10/27/2020 6:19 AM EST 10/27/2020 6:19 AM EST Yoel Medellin MD POINT OF CARE TEST O VISHAL Performing Organization Address [facility] de Phone Number [facility] [place] [address] * MRI Cervical Spine wo Contrast (Generic) [...] ? 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 C6-C7 disc [...] below. Electronically signed by: Allen García MD, [facility]([phone]), at 10/27/2020 7:01 AM Ovi Ramirez MD [...] ? Electronically signed by: Allen García MD, [facility] ([phone]), at 10/27/2020 5:17 AM Narrative 10/27/2020 5:17 [...] below. Electronically signed by: Allen García MD, [facility]([phone]), at 10/27/2020 5:17 AM Ovi Ramirez MD [...] ? Electronically signed by: Allen García MD, [facility] ([phone]), at 10/27/2020 5:17 AM Narrative 10/27/2020 5:17 [...] below. Electronically signed by: Allen García MD, [facility]([phone]), at 10/27/2020 5:17 AM Ovi Ramirez MD [...] ? Electronically signed by: Allen García MD, [facility] ([phone]), at 10/27/2020 5:17 AM Narrative 10/27/2020 5:17 [...] below. Electronically signed by: Allen García MD, [facility]([phone]), at 10/27/2020 5:17 AM Ovi Ramirez MD [...] ? Electronically signed by: Allen García MD, [facility] ([phone]), at 10/27/2020 5:17 AM Narrative 10/27/2020 5:17 [...] below. Electronically signed by: Allen García MD, [facility]([phone]), at 10/27/2020 5:17 AM Ovi Ramirez MD [...] ? Electronically signed by: Allen García MD, [facility] ([phone]), at 10/27/2020 5:17 AM Narrative 10/27/2020 5:17 [...] below. Electronically signed by: Allen García MD, [facility]([phone]), at 10/27/2020 5:17 AM Ovi Ramirez MD [...] ? Electronically signed by: Allen García MD, [facility] ([phone]), at 10/27/2020 5:17 AM Narrative 10/27/2020 5:17 [...] below. Electronically signed by: Allen García MD, [facility]([phone]), at 10/27/2020 5:17 AM Ovi Ramirez MD [...] ? Electronically signed by: Allen García MD, [facility] ([phone]), at 10/27/2020 5:17 AM Narrative 10/27/2020 5:17 [...] below. Electronically signed by: Allen García MD, [facility]([phone]), at 10/27/2020 5:17 AM Ovi Ramirez MD [...] ? Electronically signed by: Allen García MD, [facility] ([phone]), at 10/27/2020 5:17 AM Narrative 10/27/2020 5:17 [...] below. Electronically signed by: Allen García MD, [facility]([phone]), at 10/27/2020 5:17 AM Ovi Ramirez MD [...] ? Electronically signed by: Allen García MD, [facility] ([phone]), at 10/27/2020 5:17 AM Narrative 10/27/2020 5:17 [...] below. Electronically signed by: Allen García MD, [facility]([phone]), at 10/27/2020 5:17 AM Ovi Ramirez MD [...] ? Electronically signed by: Allen García MD, [facility] ([phone]), at 10/27/2020 5:17 AM Narrative 10/27/2020 5:17 [...] below. Electronically signed by: Allen García MD, [facility]([phone]), at 10/27/2020 5:17 AM Ovi Ramirez MD [...] ? Electronically signed by: Allen García MD, [facility] ([phone]), at 10/27/2020 5:17 AM Narrative 10/27/2020 5:17 [...] below. Electronically signed by: Allen García MD, [facility]([phone]), at 10/27/2020 5:17 AM Sergio Dhaliwal MD [...] ? Electronically signed by: Allen García MD, [facility] ([phone]), at 10/27/2020 5:17 AM Narrative 10/27/2020 5:17 [...] below. Electronically signed by: Allen García MD, [facility]([phone]), at 10/27/2020 5:17 AM Sergio Dhaliwal MD [...] ? Electronically signed by: Allen García MD, [facility] ([phone]), at 10/27/2020 5:17 AM Narrative 10/27/2020 5:17 [...] below. Electronically signed by: Allen García MD, [facility]([phone]), at 10/27/2020 5:17 AM Sergio Dhaliwal MD IMG DX ORDERABLES * (ABNORMAL) BLOOD GAS 2 ARTERIAL (10/27/2020 12:25 AM EST) pH, Arterial 7.33(L) 7.35 - 7.45 [facility] PCO2, Arterial 39 35 - 45 mmHg [facility] PO2, Arterial 75(L) 85 - 104 mmHg [facility] Bicarbonate, Arterial 19.9(L) 20.0 - 26.0 mmol/L [facility] Base Excess, Arterial -6.0(L) -3.0 - 3.0 mmol/L [facility] Hgb Blood Gas 13.7 13.7 - 16.5 gm/dL [facility] Oxyhemoglobin, Arterial 92.4(L) 94.0 - 97.0 % [facility] Carboxyhemoglob in, Arterial 0.4 % [facility] Comment: Nonsmokers: 0.5-1.5% COHB Smokers: Variable, but usually less than 10% Toxic: 20-30% COHB Lethal: Greater than 60% COHB Methemoglobin, Arterial 0.3 <=1.5 % [facility] Na Whole Blood 135 135 - 145 mmol/L [facility] K Whole Blood 3.9 3.5 - 5.0 mmol/L [facility] Comment: Please note: Patients with WBC >100,000 may have falsely elevated Potassium levels. Contact the Clinical Chemistry Laboratory if there are any questions. ICa Whole Blood 1.19 1.15 - 1.33 mmol/L [facility] Comment: Note: ??Total bilirubin higher than 20 mg/dL may lead to falsely low ionized calcium. CL Whole Blood 104 98 - 107 mmol/L [facility] Gluc Whole Bld 116 65 - 199 mg/dL [facility] Comment:Diabetes: >=200 mg/d L plus symptoms. Lactate WB 2.4(H) 0.5 - 2.2 mmol/L [facility] Blood specimen (specimen) 10/27/2020 12:25 AM EST 10/27/2020 12:25 AM EST Ovi Ramirez MD POINT OF CARE TEST O RDERABLES [facility] [place] [address] * (ABNORMAL) BLOOD GAS 2 VENOUS (10/27/2020 12:14 AM EST) pH, Venous 7.31(L) 7.32 - 7.42 [facility] PCO2, Venous 40(L) 41 - 51 mmHg [facility] PO2, Venous 65(H) 25 - 40 mmHg [facility] Bicarbonate, Venous 19.3 mmol/L [facility] Base Excess, Venous -7.0 mmol/L [facility] Hgb Blood Gas 13.2(L) 13.7 - 16.5 gm/dL [facility] Oxyhemoglobin, Venous 88.7 % [facility] Carboxyhemoglob in, Venous 0.7 % [facility] Comment: Nonsmokers: 0.5-1.5% COHB Smokers: Variable, but usually less than 10% Toxic: 20-30% COHB Lethal: Greater than 60% COHB Methemoglobin, Venous 0.4 <=1.5 % [facility] Na Whole Blood 136 135 - 145 mmol/L [facility] K Whole Blood 3.9 3.5 - 5.0 mmol/L [facility] Comment: Please note: Patients with WBC >100,000 may have falsely elevated Potassium levels. Contact the Clinical Chemistry Laboratory if there are any questions. ICa Whole Blood 1.15 1.15 - 1.33 mmol/L [facility] Comment: Note: ??Total bilirubin higher than 20 mg/dL may lead to falsely low ionized calcium. CL Whole Blood 106 98 - 107 mmol/L [facility] Gluc Whole Bld 109 65 - 199 mg/dL [facility] Comment:Diabetes: >=200 mg/d L plus symptoms Lactate WB 2.5(H) 0.5 - 2.2 mmol/L [facility] Blood Gas Source Venous [facility] Blood specimen (specimen) 10/27/2020 12:14 AM EST 10/27/2020 12:14 AM EST Ovi Ramirez MD POINT OF CARE TEST O RDERABLES Performing Organization Address [facility] Co de Phone Number [facility] [place] [address] * Urinalysis Microscopic Exam (10/26/2020 11:59 PM EST) Pathologist [facility] RBC, Urine 2 0 - 3 /HPF [facility] WBC, Urine 1 0 - 3 /HPF [facility] Squamous Epithelial Cells Raw Data, Urine 2 <=4 /HPF [facility] Hyaline Casts, Urine 1 0 - 2 /LPF [facility] First stream urine specimen (specimen) 10/26/2020 11:59 PM EST 10/27/2020 12:26 AM EST Narrative Resulting Agency Comment Spec In Lab Yoel Medellin MD URINE ORDERABLES Performing Organization Address [facility] Co de Phone Number [facility] [place] [address] * (ABNORMAL) Rapid Drug Screen w/o Confirmation, Urine (10/26/2020 11:59 PM EST) Barbiturates Screen, Urine None Detected None Detected [facility] Comment: The barbiturate screen detects [...] Benzodiazepines Screen, Urine None Detected None Detected [facility] Comment: The benzodiazepines screen detects [...] Cocaine Screen, Urine None Detected None Detected [facility] Comment: The cocaine metabolites screen detects benzoylecgonine (Cocaine Metabolite) at concentrations >150 ng/mL. A ? Presumptive Positive? result indicates that the screening result was positive but has not yet been confirmed by a highly-specific method. As with any screen, occasional false positive results from cross-reacting substances may occur. Not for Medico-Legal Purposes. Methadone Metabolites Screen, Urine None Detected None Detected [facility] Comment: The methadone metabolite screen detects EDDP (major methadone metabolite) at concentrations >100 ng/mL. A ? Presumptive Positive? result indicates that the screening result was positive but has not yet been confirmed by a highly-specific method. As with any screen, occasional false positive results from cross-reacting substances may occur. Not for Medico-Legal Purposes. Opiate Screen, Urine None Detected None Detected [facility] Comment: The opiates screen detects [...] Cannabinoid Screen, Urine Presumptive Pos(A) None Detected [facility] Comment: The marijuana metabolites screen detects the THC metabolite (36-ide-4-carboxy-delta 9-THC) at concentrations >20 ng/mL. A ? Presumptive Positive? result indicates that the screening result was positive but has not yet been confirmed by a highly-specific method. As with any screen, occasional false positive results from cross-reacting substances may occur. Not for Medico-Legal Purposes. Oxycodone Screen, Urine None Detected None Detected [facility] Comment: The oxycodone screen detects oxycodone and oxymorphone at concentrations >100 ng/mL. A ? Presumptive Positive? result indicates that the screening result was positive but has not yet been confirmed by a highly-specific method. As with any screen, occasional false positive results from cross-reacting substances may occur. Not for Medico-Legal Purposes. Buprenorphine Screen, Urine None Detected None Detected [facility] Comment: The buprenorphine screen detects buprenorphine at concentrations >5 ng/mL. A ? Presumptive Positive? result indicates that the screening result was positive but has not yet been confirmed by a highly-specific method. As with any screen, occasional false positive results from cross-reacting substances may occur. Not for Medico-Legal Purposes. Fentanyl Screen, Urine None Detected None Detected [facility] Comment: The fentanyl screen detects fentanyl at concentrations >2 ng/mL. A ? Presumptive Positive? result indicates that the screening result was positive but has not yet been confirmed by a highly-specific method. As with any screen, occasional false positive results from cross-reacting substances may occur. Not for Medico-Legal Purposes. Tricyclics Screen, Urine None Detected None Detected [facility] Comment: The tricyclics screen detects [...] Purposes. Ethanol Screen, Urine Positive(A) None Detected [facility] Comment:This urine ethanol a ssay detects ethanol at concentrations >/= 100 mg/L. Amphetamines Screen, Urine None Detected None Detected [facility] Comment: The amphetamine screen detects d-amphetamine and d-methamphetamine at concentrations >300 ng/mL. A ? Presumptive Positive? result indicates that the screening result was positive but has not yet been confirmed by a highly-specific method. As with any screen, occasional false positive results from cross-reacting substances may occur. Not for Medico-Legal Purposes. Adulterants Screen, Urine None Detected None Detected [facility] Comment: No adulteration or dilution of this urine sample was detected. All urine samples submitted for urine drugs of abuse analysis are tested for creatinine concentration, pH, and for the presence of oxidants, nitrites, and chromate. Urine specimen (specimen) 10/26/2020 11:59 PM EST 10/27/2020 12:26 AM EST Narrative Resulting Agency Comment Spec In Lab Yoel Medellin MD CHEMISTRY ORDERABLES [facility] [place] [id number] * (ABNORMAL) Urinalysis with reflex Culture (10/26/2020 11:59 PM EST) Glucose, Urine Dipstick Negative Negative mg/dL [facility] Protein, Urine Dipstick Trace(A) Negative mg/dL [facility] Bilirubin, Urine Dipstick Negative Negative mg/dL [facility] Comment: Clinical correlation required for positive Urine Bilirubin results as false positive may occur with some drugs and drug related products. If a false positive is suspected a serum total bilirubin should be considered if clinically indicated. Urobilinogen, Urine Dipstick Normal Normal mg/dL [facility] pH, Urn (dipstick) 5.5 5.0 - 8.0 [facility] Blood, Urine Dipstick Large(A) Negative mg/dL [facility] Ketone, Urine Dipstick Negative Negative mg/dL [facility] Nitrite, Urine Dipstick Negative Negative [facility] Leukocytes, Urine Dipstick Negative Negative [facility] Appearance, Urine Dipstick Clear Clear [facility] Specific [place] Urine Automated >=1.030(A) 1.006 - 1.030 [facility] Color, Urine Dipstick Yellow Yellow [facility] Reflex to Culture No [facility] First stream urine specimen (specimen) 10/26/2020 11:59 PM EST 10/27/2020 12:26 AM EST Narrative Resulting Agency Comment Spec In Lab Luann Hartley MD URINE ORDERABLES Performing Organization Address [facility]/ZIP Co de Phone Number [facility] [place] [address] * Rapid Drug Screen, Urine (LALITA Request) (10/26/2020 11:59 PM EST) LALITA Conf Requested No [facility] Comment: Collection date/time has been modified to: 23:59:00. ??Previous collection date/time: 23:19:00. Corrected from No [NA] on 10/27/20 0:26:49 EST by Maria E Moses LALITA Requested See Comment [facility] Comment: Refer to Rapid Drug Screen w/o Confirmation, Urine for results. Collection date/time has been modified to: 23:59:00. ??Previous collection date/time: 23:19:00. Corrected from See Comment [NA] on 10/27/20 0:26:49 EST by Maria E Moses Urine specimen (specimen) 10/26/2020 11:59 PM EST 10/27/2020 12:26 AM EST Narrative Resulting Agency Comment Spec In Lab Luann Hartley MD URINE ORDERABLES Performing Organization Address City/[facility]/ZIP Co de Phone Number [facility] [place] [address] * CT Angiogram Carotids (10/26/2020 11:46 PM [...] ? Electronically signed by: Allen García MD, [facility] ([phone]), at 10/27/2020 12:38 AM Narrative 10/27/2020 12:38 AM EST EXAMINATION: REQUEST FOR 2ND READ CT HEAD AND SPINE, CT ANGIOGRAM CAROTIDS CLINICAL HISTORY: trauma found down; What Modality is the exam? CT Scan; Body Part (please add comments as necessary): Head and C spine; Sending Institution [facility]; Date of exam 20201026; I believe [...] comments as necessary): Head and C spine; [facility]; Date of exam 20201026; I believe [...] necessary): Head and C spine; Sending Institution [facility]; Date of exam 20201026; I believe [...] comments as necessary): [facility]; I believe [...] ? Electronically signed by: Allen García MD, [facility] ([phone]), at 10/27/2020 2:07 AM Narrative 10/27/2020 2:07 AM EST EXAMINATION: REQUEST FOR 2ND READ CT CHEST ABDOMEN PELVIS INSTITUTION WHERE STUDY PERFORMED: [facility] DATE AND TIME OF STUDY: 10/26/2020 20:52 CLINICAL HISTORY: trauma found down; What Modality is the exam? CT Scan; Body Part (please add comments as necessary): Chest abdomen pelvis; Sending Institution [facility]; Date of exam 20201026; I believe [...] CHEST ABDOMEN PELVIS INSTITUTION WHERE STUDY PERFORMED: [facility] DATE AND TIME OF STUDY: 10/26/2020 20:52 CLINICAL HISTORY: trauma found down; What Modality is the exam? CT Scan;Body Part (please add comments as necessary): Chest abdomen pelvis; Sending Institution [facility]; Date of exam 20201026; I believe [...] below. Electronically signed by: Allen García MD, [facility]([phone]), at 10/27/2020 2:07 AM Luann Hartley MD IMG OUTSIDE INTERPRE TATION ORDERABLES * (ABNORMAL) L-Lactate2 Whole Blood (10/26/2020 11:31 PM EST) Lactate WB 2.7(H) 0.5 - 2.2 mmol/L [facility] Blood specimen (specimen) 10/26/2020 11:31 PM EST 10/26/2020 11:31 PM EST Luann Hartley MD CHEMISTRY ORDERABLES Performing Organization Address City/[facility]/ZIP Co de Phone Number [facility] [place] [address] * ABORH Recheck Status (10/26/2020 11:10 PM EST) ABORH Recheck Order Order Placed [facility] ABORH Type Recheck Not Performed [facility] Blood specimen (specimen) 10/26/2020 11:10 PM EST 10/26/2020 11:28 PM EST Narrative Resulting Agency Comment Spec In Lab Yoel Medellin MD BLOOD BANK LAB ORDER LORNA [facility] [place] [address] * Gold Tube HOLD (10/26/2020 11:10 PM EST) Pathologist [facility] Gold Hold Sample in lab. [facility] Blood specimen (specimen) Venous Draw / Unknown 10/26/2020 11:10 PM EST 10/26/2020 11:34 PM EST Yoel Medellin MD CHEMISTRY ORDERABLES [facility] [place] [address] * Antibody screen (10/26/2020 11:10 PM EST) [facility] Ab Screen Interp Negative [facility] Expires at [id number] on: 10/29/2020 [facility] Blood specimen (specimen) 10/26/2020 11:10 PM EST 10/26/2020 11:28 PM EST Narrative Resulting Agency Comment Spec In Lab Yoel Medellin MD BLOOD BANK LAB ORDER LORNA Performing Organization Address City/[facility]/ZIP Co de Phone Number [facility] [place] [address] * ABO/Rh Typing (10/26/2020 11:10 PM EST) Pathologist [facility] ABORH Type AB Pos [facility] Blood specimen (specimen) 10/26/2020 11:10 PM EST 10/26/2020 11:28 PM EST Narrative Resulting Agency Comment Spec In Lab Yoel Medellin MD BLOOD BANK LAB ORDER LORNA Performing Organization Address City/[facility]/ZIP Co de Phone Number [facility] [place] [address] * (ABNORMAL) Differential, Automated (10/26/2020 11:10 PM EST) Neutrophil % 85.4 % [facility] Neutrophil Absolute 11.41(H) 1.70 - 6.10 x10(3)/mc L [facility] Lymph % 9.3 % [facility] Lymphocytes Abs 1.2 0.9 - 3.2 x10(3)/ L [facility] Monocyte % 4.3 % [facility] Monocyte Abs 0.6 0.3 - 0.9 x10(3)/ L [facility] Eos % 0.3 % [facility] Eosinophils Abs 0.0 0.0 - 0.4 x10(3)/[facility] Basophil % 0.2 % [facility] Baso Absolute 0.0 0.0 - 0.1 x10(3)/[facility] Immature Gran % 0.50 % [facility] Comment: Immature granulocytes(IG's)percentage and absolute count will include metamyelocytes, myelocytes, and promyelocytes. Blood smears from CBCs yielding IG's will be scanned manually for concordance. If this scan disagrees with the automated IG or if promyelocytes are noted, a manual differential will be performed. Immature Gran Absolute 0.07(H) 0.00 - 0.04 x10(3)/[facility] Blood specimen (specimen) 10/26/2020 11:10 PM EST 10/26/2020 11:31 PM EST Narrative Resulting Agency Comment Spec In Lab Yoel Medellin MD HEMATOLOGY ORDERABLE S Performing Organization Address City/State/[facility] Co de Phone Number [facility] [place] [address] * (ABNORMAL) Hemogram (10/26/2020 11:10 PM EST) White Blood Cell 13.4(H) 4.0 - 9.5 x10(3)/[facility] Red Blood Cell 4.08(L) 4.58 - 5.54 x10(6)/[facility] Hemoglobin 12.4(L) 13.7 - 16.5 gm/dL [facility] Hematocrit 36.7(L) 40.5 - 48.5 % [facility] Mean Cell Volume 90.0 82.9 - 93.1 fL [facility] Mean Cell Hemoglobin 30.4 27.5 - 32.1 pg [facility] Mean Cell Hemoglobin Concentration 33.8 32.0 - 35.7 gm/dL [facility] Platelet 188 145 - 357 x10(3)/mc L [facility] RDW Standard Deviation 41.0 36.0 - 45.0 [facility] RDW coefficient of variation 12.4 11.4 - 13.8 % [facility] Mean Platelet Volume 10.9 7.6 - 12.9 [facility] NRBC% auto 0.0 % [facility] NRBC Absolute 0.000 0.000 - 0.000 x10(3)/mc L [facility] Blood specimen (specimen) 10/26/2020 11:10 PM EST 10/26/2020 11:31 PM EST Narrative Resulting Agency Comment Spec In Lab Yoel Medellin MD HEMATOLOGY ORDERABLE S Performing Organization Address City/[facility] Co de Phone Number [facility] [place] [address] * (ABNORMAL) Ethanol Level (10/26/2020 11:10 PM EST) Ethanol 1,893(H) <=99 mg/L [facility] Comment: Greater than 800 mg/L (0.08%) should be considered intoxicated. 3400 to 4500 mg/L (0.34 - 0.45%) is considered severe intoxication. Greater than 5500 mg/L (0.55%) is usually fatal. Blood specimen (specimen) 10/26/2020 11:10 PM EST 10/26/2020 11:31 PM EST Narrative Resulting Agency Comment Spec In Lab Luann Hartley MD CHEMISTRY ORDERABLES [facility] [place] [address] * (ABNORMAL) APTT (10/26/2020 11:10 PM EST) Partial Thromboplastin Time 22(L) 25 - 37 sec [facility] Comment: Decreased clotting times may [...] MD HEMATOLOGY ORDERABLE S Performing Organization Address [facility] Co de Phone Number [facility] [place] [address] * Prothrombin Time (10/26/2020 11:10 PM EST) Prothrombin Time 11.1 9.4 - 12.5 sec [facility] International Normalization Ratio 1.0 [facility] Comment: An INR <2.0 indicates [...] MD HEMATOLOGY ORDERABLE S Performing Organization Address [facility] Co de Phone Number [facility] [place] [address] * (ABNORMAL) Basic Metabolic Panel (non-fasting) (10/26/2020 11:10 PM EST) Glucose 133 65 - 199 mg/dL [facility] Comment:Diabetes: >=200 mg/d L plus symptoms Blood Urea Nitrogen 15 10 - 20 mg/dL [facility] Creatinine 1.43 0.80 - 1.50 mg/dL [facility] Sodium 138 135 - 145 mmol/L [facility] Potassium 4.1 3.5 - 5.0 mmol/L [facility] Comment: Please note: ??Patients with WBC >100,000 may have falsely elevated Potassium levels. ??For accurate Potassium quantification in these patients send serum separator tube (gold top) for subsequent determinations. ??Contact the Clinical Chemistry Laboratory if there are any questions. Chloride 104 98 - 107 mmol/L [facility] Carbon Dioxide 20(L) 22 - 31 mmol/L [facility] Anion Gap 14 5 - 15 mmol/L [facility] Calcium 8.4(L) 8.5 - 10.5 mg/dL [facility] Est Glomerular Filtration Rate 56(L) >=60 mL/min/1. 73 m?? [facility] Comment: This patient? s estimated [...] In Lab Luann Hartley MD CHEMISTRY ORDERABLES [facility] [place] [address] * COVID-19 PCR (10/26/2020 10:58 PM EST) SARS-CoV-2 RNA (Rapid) Not Detected Not Detected [facility] Comment: This result should be [...] using the Simplexa COVID-19 Direct Assay by [employer] as authorized by the FDA issued Emergency [...] Pathology and Laboratory Medicine at [facility], certified under the Clinical Laboratory Improvement Amendments [...] fact sheets at the following FDA website: https://www.fda.gov/medical-devices/zktvuvpqini-ltspcjo-9873-ftkdr-14-hlsyaszuc- use-a tjdvadnagcqjs-dtggzbc-bzspjsu/naqge-czljahrhqrb-zpva SARS-CoV-2 Source [employer] [facility] Nasopharyngeal swab (specimen) 10/26/2020 10:58 PM EST 10/26/2020 11:34 PM EST Comment:Symptoms->Surveillan ce Narrative Resulting Agency Comment Spec In Lab Luann Hartley MD MICROBIOLOGY - GENER AL ORDERABLES Performing Organization Address [facility] Co de Phone Number [facility] [place] [address] * Film Library- Storage Only CT Head And Spine (10/26/2020 9:51 PM EST) Narrative [facility] 10/26/2020 9:51 PM EST This exam is auto-finalizing. It's purpose is for storage only. Rayna Hoover APRN [facility] FILM LIBRARY ORD ERABLES Performing Organization Address [facility] de Phone Number [place], [place] * Film Library- Storage Only CT Chest Abdomen Pelvis (10/26/2020 9:49 PM EST) Narrative [facility] 10/26/2020 9:49 PM EST This exam is auto-finalizing. It's purpose is for storage only. Rayna Hoover APRN [facility] FILM LIBRARY ORD ERABLES Performing Organization Address [facility] de Phone Number [place], [place] documented in this encounter Visit [...] as of this encounter Care Teams Field Reporter Relationship Specialty Start Date [place] [address] PCP - General Family Medicine 07/01/18 08/21/21 documented as of this encounter
--- OUTSIDE RECORDS SUMMARY | 2024-11-04 00:31 | XMS_ITS | Encounter Summary ---
Author Organization [facility] Address [facility] [place] [address] Care Team Providers Care Rn Camp Name Role Phone Rayna Pino APRN Primary Care Provider [phone] Encounter Details Date Type Department Care Team (Late st Contact Info) Description 10/31/2020 Orders [place] [id number] Ten Leija MD [facility] [place] [address] S/P C4-T2 PSIF for C6-7 bilateral facet [...] ourradiologists. Electronically signed by: Jose Joaquin MD, [facility] [place] ([phone]), at 01/30/2021 10:06 AM Robbin Tong MD IMG DX ORDERABLES documented in this encounter Visit Diagnoses Diagnosis S/P C4-T2 PSIF for C6-7 bilateral facet dislocation 10/27/20 Dr. Tong Arthrodesis status S/P C4-T2 PSIF for C6-7 bilateral facet dislocation 10/27/20 Dr. Tong Arthrodesis status documented in this encounter Care Teams Rn Camp Relationship Specialty Start Date End Date Rayna Pino APRN [address] [place] [address] PCP - General Family Medicine 07/01/18 08/21/21 documented as of this encounter
--- OUTSIDE RECORDS SUMMARY | 2024-11-04 00:33 | XMS_ITS | Encounter Summary ---
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 Associated attestation - Adrienne Medellin MD - [...] Samuel Hernandez - 11/14/2020 2:59 PM EST Zumba Instructor Encounter Note Patient Name: Bruce Velasquez Jr. : [id number] MR#: [id number] Admit Date: 10/26/2020 10:56 PM Hospital Day 19 days Narrative: Visited to introduce and assess acceptance of Zumba Instructor services. Pt was not available and I will visit an other time. Assessment: Intervention and Outcome: Follow-up: Time in Direct Care: Samuel Hernandez 11/14/2020 * Zabrina Disla SLP - 11/14/2020 10:48 AM EST Speech Therapy Note Patient Profile: Bruce Velasquez Jr.??is a 55 y.o.??male??found down on 10/26 and taken to [facility] where he was hypotensive and bradycardic. Trauma workup revealed a C6/7 jumped facet injury. ??He was transferred to for further management??and is s/p open reduction C6-7 bilateral facet dislocation, C4-T2 PSIF??10/27.??TRIMMER MEAT following for dysphagia management.?? Interval History: Pt [...] Pt was seen today for a follow-up TRIMMER MEAT visit. Pt demonstrates an interval improvement inswallow [...] Speech Language Pathology: 20 Zabrina Disla MS, CCC-TRIMMER MEAT Inpatient Speech Pathologist Pager #[phone] * Radha Florez, RD - 11/14/2020 10:12 [...] No Injury Device Sites: O2 sat monitor, [place] J/cervical collar, AFO/Christiano boots, IV sites Other Sites: (PEG) Relevant medications: liquid tylenol q6h, dulcolax, colace, lactobacillus Last Bowel Movement: 11/13/20(Pt reports PT cleaned him up) Admit Weight: 92.8 kg Estimated body mass index is 28.35 kg/m?? as calculated from the following: Height as of this encounter: 188 cm (6' 2.02). Weight as of this encounter: 100.2 kg (220 lb 14.4 oz). [place] Body Weight: 86.3 kg Usual Body Weight: n/a Wt Readings from Last 10 Encounters: 10/31/20 100.2 kg (220 lb 14.4 oz) 01/16/12 90.7 kg (200 lb) Assessment: Estimated needs: Calories: 1206-3463 kcal (20-25 kcal/kg) Protein: 129 grams (1.5g/kg [...] while inpatient RADHA FLOREZ RD Pager #: [phone] * Liliane Barber, PT - 11/14/2020 9:16 AM Ijeoma DUMONT Rec: acute SCI rehab Physical Therapy Note Treatment Number PT: 10 Patient profile: Bruce Velasquez Jr.??is a 55 y.o.?male??found down on 10/26 and taken to [facility] where he was hypotensive and bradycardic. 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 Pt taken to inpatient rehab gym [...] plan as stated. Time IN / OUT: 8432-7356 Total Evaluation Minutes, Physical Therapy: 63(x4 TEF) Liliane Barber PT Pager: [phone] Physical Therapy Inpatient Rehabilitation Department * Rosalba Neumann RN - 11/14/2020 3:23 AM EST OUTCOME EVALUATION NOTE: OUTCOME SUMMARY: Pt A&O, neuro unchanged. VSS on RA. [place] J collar in place, care completed. 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, complete, C8 and below Rapid Covid19 PCR resulted @ 22:58 hours on 10/26/2020; not detected ([facility]) Patient plan of care discussed [...] as possible Discharge planning to date: [facility] GOVERNMENT OPERATIONS CONSULTANT involved with assisting patient's daughter with insurance coverage; disability; coping/emotional support Rehab referrals placed and currently under review Current Referral in place: [facility] (11/12/2020); [place] admissions team with clinical questions snap chatted [...] y.o.?male??found down on 10/26 and taken to [facility] where he was hypotensive and bradycardic. 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 Time IN / OUT: 6211-2352 Total Evaluation Minutes, Physical Therapy: 77(x5 TEF) Liliane Barber PT Pager: [phone] Physical Therapy Inpatient Rehabilitation Department * Jeronimo Lawson, OT - 11/13/2020 11:20 AM EST Occupational Therapy Treatment Note Treatment Number OT: 8 Patient Dx: Bruce Velasquez Jr.??is a 55 y.o.?male??found down on 10/26 and taken to [facility] where he was hypotensive and bradycardic. Trauma workup revealed a C6/7 jumped facet injury. ??He was transferred to for further management??and is s/p open reduction C6-7 bilateral facet dislocation, C4-T2 PSIF??10/27. Social History: Patient lives??alone in a 1st floor apartment with 2 steps to enter.?? DME:??none Baseline ADL/Mobility:??fully independent, works FT for a [employer].?? Precautions/Special Considerations: fall risk; high risk for skin breakdown; [place] at all times; can maintain own [...] ~ 45 degrees, pt initially participating w/ [employer] assist w/ RUE, elbow supported on pillows; however, following cursory shave, pt requested TotalA for thoroughness ?? Pt TotalA for doff/don of cervical collar seated in w/c ?? Pt MaxA for doff/don of hospital gown and sponge bath of neck/facial area following shaving ?? Pt left using [employer] head phones to control phone and call [...] don in AM prior to transfer to [facility] Occupational Therapy Goals: To be achieved by??11/16/20 [...] Minutes, Occupational Therapy: 72(sc x 5) Pager: [phone] Jeronimo Lawson OT Occupational Therapy Rehabilitation Department [...] in 1200 ml. . Discussed with Trauma ([phone]). TPN Medication Recent History (Show up to 3 orders; newest on the left. Changes between the two most recent orders are indicated.) Start date and time 11/13/2020 1800 11/12/2020 1800 11/09/2020 1800 TPN Adult [[id number]] TPN Adult [[id number]] TPN Adult [[id number]] Order Status Active Discontinued Last Admin New Bag at 11/12/2020 1813 by Lina Bridges RN New Bag at 11/11/2020 1840 by Angelia Ward RN Additives trace elements Zn-Cu-Mn-Se 1 mL 1 mL 1 mL folic acid 1,000 mcg 1,000 mcg 1,000 mcg ascorbic acid (vitamin C) 100 mg 100 mg 100 mg Vit U0-H2-N4-B5-B6 (B Complex) 1 mL 1 mL 1 [...] encounter: 100.2 kg (220 lb 14.4 oz). [place] Body Weight: 86.3 kg Usual Body Weight: Wt Readings from Last 10 Encounters: 10/31/20 100.2 kg (220 lb 14.4 oz) 01/16/12 90.7 kg (200 lb) Assessment: Estimated needs: Calories: 7878-3284 kcal (20-25 kcal/kg) Protein: 200 grams (2g/kg ) Nutrition Focused Physical Exam (NFPE): Not performed Nutrition intake and intake history/Interview: n/a Protein-calorie Malnutrition: Not identified (MASOUD Shields J Parenteral Enteral Nutr. 2012 March; 36(3): 273-83) Nutrition to continue to follow up while inpatient [address] Pager #: [phone] * Carin Armstrong GOVERNMENT OPERATIONS CONSULTANT - 11/13/2020 9:58 AM EST Met with the patient to complete a disability form sent by his daughter. 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 Plan: Traumatic Injuries: Injury Intervention Follow-up [...] qHS Dysphagia - PEG, TF (held) - TRIMMER MEAT 11/08: dysphagia soft, nectar thick liquids Resolved in hospital issues: Chronic health conditions: Fluids/Electrolytes: tolerating PO Diet: per TRIMMER MEAT Activity status: Activity As Tolerated Spine status: Orthopedics Pulmonary toilet: Encourage frequent mobilization, IS use, titrate O2 >90 DVT PPX: SCDs, SQ Heparin q8hrs GI PPX: PPI Lines/Tubes/Drains: PIV, Beck 10/26 for neurogenic bladder, PEG Consults (Please see educational consultant notes): PT/OT, Ortho, Psych, TRIMMER MEAT, ORTHO Dispo: IPR,CRC working on dispo plan Status: Floor Incidental Findings: - Nonspecific small lytic foci within the iliac bones. [] Incidental Findings Form Completed Mikayla Loomis MD 11/13/2020 Trauma pager [phone] Associated attestation - Adrienne Medellin MD - [...] y.o.?male??found down on 10/26 and taken to [facility] where he was hypotensive and bradycardic. 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 Time IN / OUT: 3359-4094 Total Evaluation Minutes, Physical Therapy: 48(x3 TEF) Liliane Barber PT Pager: [phone] Physical Therapy Inpatient Rehabilitation Department * Saritha Louie RN - 11/12/2020 4:05 PM EST RN-CHEMICAL TECHNICIAN, Office of Care Management Saritha Louie RN,BSN, ACM Pager # [phone] e-DH reviewed. Patient discussed daily in interdisciplinary rounds. Patient worked with rehab today with family on the phone. Patient has discussed rehab with his boss and Has requested to expand referral to: [place] [address] investigation specialist notified. Patient has wireless headset and phone but does need some assist with technology. GOVERNMENT OPERATIONS CONSULTANT/Stove Bottom Worker remains available as needed for coordination of [...] encounter: 100.2 kg (220 lb 14.4 oz). [place] Body Weight: 86.3 kg Usual Body Weight: n/a Wt Readings from Last 10 Encounters: 10/31/20 100.2 kg (220 lb 14.4 oz) 01/16/12 90.7 kg (200 lb) Assessment: Estimated needs: Calories: 6666-6158 kcal (20-25 kcal/kg) Protein: 129 grams (1.5g/kg [...] while inpatient [address]HA FL[address]Z RD Pager #: [phone] * Jeronimo Lawson, ERNESTO - 11/12/2020 2:24 PM EST Occupational Therapy Treatment Note Treatment Number OT: 7 Patient Dx: Bruce Velasquez .??is a 55 y.o.?male??found down on 10/26 and taken to [facility] where he was hypotensive and bradycardic. Trauma workup revealed a C6/7 jumped facet injury. ??He was transferred to for further management??and is s/p open reduction C6-7 bilateral facet dislocation, C4-T2 PSIF??10/27.? Social History: Patient lives??alone in a 1st floor apartment with 2 steps to enter.?? DME:??none Baseline ADL/Mobility:??fully independent, works FT for a [employer].?? Precautions/Special Considerations: fall risk; high risk for skin breakdown; [place] at all times; can maintain own [...] to release item and use functional tenodesis globe cleaner in RUE w/ assist from his LUE [...] ?? Pt demonstrating increased understanding of tenodesis globe cleaner in RUE as pt able to drop and pick up worker ?? UE Right Left Strength Strength Shoulder [...] pt able to release and pick up worker built up ADL tool w/ assist from [...] Minutes, Occupational Therapy: 45(sc x 3) Pager: [phone] Jeronimo Lawson OT Occupational Therapy Rehabilitation Department [...] speak with daughter today at 1:30pm via [place] per social work. Plan: Traumatic Injuries: Injury [...] qHS Dysphagia - PEG, TF (held) - TRIMMER MEAT 11/08: dysphagia soft, nectar thick liquids Resolved in hospital issues: Chronic health conditions: Fluids/Electrolytes: tolerating PO Diet: per TRIMMER MEAT Activity status: Activity As Tolerated Spine status: Orthopedics Pulmonary toilet: Encourage frequent mobilization, IS use, titrate O2 >90 DVT PPX: SCDs, SQ Heparin q8hrs GI PPX: PPI Lines/Tubes/Drains: PIV, Beck 10/26 neurogenic bladder, PEG Consults (Please see educational consultant notes): PT/OT, Ortho, Psych, TRIMMER MEAT, ORTHO Dispo: IPR,CRC working on dispo plan Status: Floor Incidental Findings: - Nonspecific small lytic foci within the iliac bones. [] Incidental Findings Form Completed Mikayla Loomis MD 11/12/2020 Trauma pager [phone] Associated attestation - Adrienne Medellin MD - [...] Diet:Dysphagia soft Nutrition Recommendations: Cyclic hypo-caloric TPN [id number] calories from 200 g protein and 100 g CHO in 1680 ml. Decreased magnesium by 8 mEq to 10 mEq.. Discussed with Trauma ([id number]). TPN Medication Recent History (Show up to 3 orders; newest on the left. Changes between the two most recent orders are indicated.) Start date and time 11/12/2020 1800 11/09/2020 1800 11/08/2020 1800 TPN Adult [[id number]] TPN Adult [[id number]] TPN Adult [[id number]] Order Status Active Active Last Admin New Bag at 11/11/2020 1840 by Angelia Ward RN New Bag at 11/08/2020 1810 by Roselia Paez RN Additives trace elements Zn-Cu-Mn-Se 1 mL 1 mL 1 mL folic acid 1,000 mcg 1,000 mcg 1,000 mcg ascorbic acid (vitamin C) 100 mg 100 mg 100 mg Vit J9-D2-I3-B5-B6 (B Complex) 1 mL 1 mL 1 [...] O2 sat monitor, IV sites, beck, SCD's/venodynes, [place] J/cervical collar Other Sites: PEG Relevant medications: folic acid, colace, MVI w minerals, Kphos, senna, thiamine Last Bowel Movement: 11/11/20 Admit Weight: 92.8 kg Estimated body mass index is 28.35 kg/m?? as calculated from the following: Height as of this encounter: 188 cm (6' 2.02). Weight as of this encounter: 100.2 kg (220 lb 14.4 oz). [place] Body Weight: 86.3 kg Usual Body Weight: Wt Readings from Last 10 Encounters: 10/31/20 100.2 kg (220 lb 14.4 oz) 01/16/12 90.7 kg (200 lb) Assessment: Estimated needs: Calories: 0046-2638 kcal (20-25 kcal/kg) Protein: 200 grams (2g/kg ) Nutrition Focused Physical Exam (NFPE): Not performed Nutrition intake and intake history/Interview: n/a Protein-calorie Malnutrition: Not identified (Cornelius, MASOUD J Parenteral Enteral Nutr. 2011; 36(3): 273-83) Nutrition to continue to follow up while inpatient [address] RD Pager #: [phone] Iram Betancourt RN - 11/11/2020 3:58 PM [...] to dysphagia soft with nectar thick per TRIMMER MEAT - duonebs changed to PRN Subjective: Reports [...] qHS Dysphagia - PEG, TF (held) - TRIMMER MEAT 11/08: dysphagia soft, nectar thick liquids Resolved in hospital issues: Chronic health conditions: Fluids/Electrolytes: tolerating PO Diet: per TRIMMER MEAT Activity status: Activity As Tolerated Spine status: Orthopedics Pulmonary toilet: Encourage frequent mobilization, IS use, titrate O2 >90 DVT PPX: SCDs, SQ Heparin q8hrs GI PPX: PPI Lines/Tubes/Drains: PIV, Beck 10/26 neurogenic bladder, PEG Consults (Please see educational consultant notes): PT/OT, Ortho, Psych, TRIMMER MEAT, ORTHO Dispo: IPR,CRC working on dispo plan Status: Floor Incidental Findings: - Nonspecific small lytic foci within the iliac bones. [] Incidental Findings Form Completed KAN Maldonado 11/11/2020 Trauma pager [phone] Attending Addendum I have seen and examined [...] Ani NeumannMSW - 11/11/2020 1:55 PM EST GOVERNMENT OPERATIONS CONSULTANT assisting with facetime this afternoon with daughter at 3:30 Thursday GOVERNMENT OPERATIONS CONSULTANT please assist pt with facetime call at 1:30. See notes Office of Care Management Float/Weekend Drafter Electromechanical LORENA Vieira Pager [phone] * Guzman Johnpedro Kahn VICE PRESIDENT OF SALES - 11/11/2020 8:17 AM EST Respiratory Therapy NIV Note NIV Settings: RA NIV Measurements: Resp: 16 SpO2: 97 % Laboratory: Lab Results Component Value Date/Time PHART 7.43 10/30/2020 03:19 PM [id number] 36 10/30/2020 03:19 PM PO2ART 64 (L) 10/30/2020 03:19 PM [id number] 23.4 10/30/2020 03:19 PM BEART -0.8 10/30/2020 [...] below. Electronically signed by: Lili Burgos MD, [facility] ([phone]), at 11/05/2020 11:58 AM Current Medications: Skin [...] remains unchanged with sensory and motor losses. [place];J on and aligned, collar care completed 0430. [place] to posterior neck are WDL. Patient's PEG [...] therapy Armando Solis RCP * Zabrina Disla, TRIMMER MEAT - 11/10/2020 5:13 PM EST Speech Therapy Note Patient Profile: Bruce Velasquez .??is a 55 y.o.??male??found down on 10/26 and taken to [facility] where he was hypotensive and bradycardic. Trauma workup revealed a C6/7 jumped facet injury. ??He was transferred to for further management??and is s/p open reduction C6-7 bilateral facet dislocation, C4-T2 PSIF??10/27.??TRIMMER MEAT following for dysphagia management.?? Interval History: Pt advanced onto clear liquid diet this AM by team. Subjective: Pt seen briefly as GOVERNMENT OPERATIONS CONSULTANT attempting to set up iPad for Zoom [...] otherwise unchanged. Bolus Presentation(s): ?? Deferred given GOVERNMENT OPERATIONS CONSULTANT visit Education: Reviewed that current diet restriction is due to concern for ileus rather than dysphagia. Assessment: Pt was seen today for a follow-up TRIMMER MEAT visit. Clarified with pt that some of current diet restrictions are a result of concern for resolving ileus. TRIMMER MEAT will f/u next week as diet is further liberalized by team. Will plan to see pt on . Please do not advance solids past dysphagia soft, or liquids past nectar thick until swallow reassessment occurs. Diagnosis: mild oropharyngeal dysphagia Recommendations: Diet: Dysphagia soft, [place] thick liquids PO medications: IV or other [...] Speech Language Pathology: 8 Zabrina Disla MS, [facility]-TRIMMER MEAT Inpatient Speech Pathologist Pager #[phone] * Ani Plascencia MSW - 11/10/2020 2:14 PM EST GOVERNMENT OPERATIONS CONSULTANT met with pts daughter and pts mother in lobby today. They brought the following for pt: -Ipad plus application services manager -Blue tooth head phone plus application services manager -Two hats -Pts personal phone pls 2 phone chargers -Stylus pen so pt can hold and type -Photo collage -Phone application services manager tower -Numerous devices to hold in hand to work it out Over the next few hours: GOVERNMENT OPERATIONS CONSULTANT cleaned belongings, moved around belongings in room so they could be easier to get for pt, put sponge around stylus pen for pt to grab, put hat on pt as he was cold, requested pt get face shaved as it is uncomfortable and tested new technology out. GOVERNMENT OPERATIONS CONSULTANT assisted pt and daughter with a zoom [...] tech thiago Office of Care Management Float/Weekend Drafter Electromechanical LORENA Vieira Pager [phone] * Aamir John VICE PRESIDENT OF SALES - 11/10/2020 10:07 AM EST Respiratory Therapy NIV Note NIV Settings: RA NIV Measurements: Resp: 18 SpO2: 96 % Laboratory: Lab Results Component Value Date/Time PHART 7.43 10/30/2020 03:19 PM [id number] 36 10/30/2020 03:19 PM PO2ART 64 (L) 10/30/2020 03:19 PM [id number] 23.4 10/30/2020 03:19 PM BEART -0.8 10/30/2020 [...] below. Electronically signed by: Lili Burgos MD, [facility] ([phone]), at 11/05/2020 11:58 AM Current Medications: Skin [...] Intake/Output Summary (Last 24 hours) at 11/10/2020 0956 Last data filed at 11/10/2020 0823 Gross [...] qHS Dysphagia - PEG, TF (held) - TRIMMER MEAT 11/08: dysphagia soft, nectar thick liquids (once [...] 10/26 neurogenic bladder, PEG Consults (Please see educational consultant notes): PT/OT, Ortho, Psych, TRIMMER MEAT, ORTHO Dispo: IPR,CRC working on dispo plan Status: Floor Incidental Findings: - Nonspecific small lytic foci within the iliac bones. [] Incidental Findings Form Completed KAN Maldonado 11/10/2020 Trauma pager [phone] Attending Addendum I have seen and examined [...] Louie RN - 11/09/2020 5:28 PM EST RN-CHEMICAL TECHNICIAN, Office of Care Management Saritha Louie RN,BSN, ACM Pager # [phone] e-DH reviewed. Patient discussed daily in interdisciplinary [...] help him. Luz has previously worked as SOLVENT PLANT TREATER and willing to learn his care. Ultimately they will be looking for some personal property appraiser assistance resources and patient says he has [...] are and the discharge planning process at [facility]. ?? I reviewed the criteria for acute level of rehab with the patient.. ?? The patient/daughter have been provided a list of facilities within their preferred geographic area.. ?? The patient has requested referrals to: 1. [facility] Acute Rehabilitation and Sub-Acute (Swing) Rehab Levels of Care [address] [place] [id number] [address] [address] PHONE: [phone] FAX: [phone] 3.[facility], [facility] [place] [address] ?? Expected date of discharge: estimated 1.13 or when his nutritional plan/ bowel function ready. Patient is excellent rehab candidate - he has supportive family and will be able to participate in rehab and organizing home modifications. He will have his commercial [facility] and has both short and skilled nursing disability and some financial resources he is willing to use on his care. They also have a community member who is wheelchair dependent living a very productive life according to both patient and his daughter Note routed to Mineralogy Teacher who will communicate referrals to facilities and provide any required information. GOVERNMENT OPERATIONS CONSULTANT/Stove Bottom Worker remains available as needed for coordination of [...] on TPN for now. - Cleared by TRIMMER MEAT for dysphagia soft and nectar thick diet. [...] Sites: O2 sat monitor, IV sites, SCD's/venodynes, [place] J/cervical collar, beck, AFO/Christiano boots Other Sites: PEG Relevant medications: dulcolax, folic acid, thiamine Last Bowel Movement: 11/08/20 Admit Weight: 92.8 kg Estimated body mass index is 28.35 kg/m?? as calculated from the following: Height as of this encounter: 188 cm (6' 2.02). Weight as of this encounter: 100.2 kg (220 lb 14.4 oz). [place] Body Weight: 86.3 kg Usual Body Weight: n/a Wt Readings from Last 10 Encounters: 10/31/20 100.2 kg (220 lb 14.4 oz) 01/16/12 90.7 kg (200 lb) Assessment: Estimated needs: Calories: 7528-4059 kcal (20-25 kcal/kg) Protein: 129 grams (1.5g/kg IBW) Nutrition Focused Physical Exam (NFPE): Not performed Nutrition intake and intake history/Interview: n/a Barriers to tolerance: NPO for ileus Protein-calorie Malnutrition: Not identified (Cornelius, JPEN J Parenteral Enteral Nutr. 2012 March; 36(3): 273-83) Nutrition to continue to follow up while inpatient RADHA FLOREZ RD Pager #: [phone] * Radha Bolden MD - 11/09/2020 11:32 [...] Value Date/Time PHART 7.43 10/30/2020 03:19 PM [id number] 36 10/30/2020 03:19 PM PO2ART 64 (L) 10/30/2020 03:19 PM FGJ5NIS 23.4 10/30/2020 03:19 PM BEART -0.8 10/30/2020 [...] for intervention: TPN Nutrition Recommendations: Hypo-caloric TPN [id number] calories from 200 g protein and 100 g CHO in 2400 ml. Decreased potassium by 10 mEq to 30 mEq and decreased magnesium by 6 mEq to 18 mEq.. Discussed with Trauma (6078). TPN Medication Recent History (Show up to 3 orders; newest on the left. Changes between the two most recent orders are indicated.) Start date and time 11/09/2020 1800 11/08/2020 1800 11/08/2020 1200 TPN Adult [[id number]] TPN Adult [[id number]] TPN Adult [[id number]] Order Status Active Active Last Admin New Bag at 11/08/2020 1810 by Roselia Paez, RN Additives trace elements Zn-Cu-Mn-Se 1 mL 1 mL 1 mL folic acid 1,000 mcg 1,000 mcg 1,000 mcg ascorbic acid (vitamin C) 100 mg 100 mg 100 mg Vit X6-[id number]-B5-B6 (B Complex) 1 mL 1 mL 1 [...] Sites: O2 sat monitor, IV sites, SCD's/venodynes, [place] J/cervical collar, beck, AFO/Christiano boots Other Sites: PEG Relevant medications: folic acid, colace, MVI w minerals, Kphos, senna, thiamine Last Bowel Movement: 11/08/20 Admit Weight: 92.8 kg Estimated body mass index is 28.35 kg/m?? as calculated from the following: Height as of this encounter: 188 cm (6' 2.02). Weight as of this encounter: 100.2 kg (220 lb 14.4 oz). [place] Body Weight: 86.3 kg Usual Body Weight: Wt Readings from Last 10 Encounters: 10/31/20 100.2 kg (220 lb 14.4 oz) 01/16/12 90.7 kg (200 lb) Assessment: Estimated needs: Calories: 7648-8878 kcal (20-25 kcal/kg) Protein: 200 grams (2g/kg ) Nutrition Focused Physical Exam (NFPE): Not performed Nutrition intake and intake history/Interview: n/a Protein-calorie Malnutrition: Not identified (Cornelius, MASOUD J Parenteral Enteral Nutr. 2012 March; 36(3): 273-83) Nutrition to continue to follow up while inpatient RADAMES [address]TER RD Pager #: [phone] * Radha Bolden MD - 11/09/2020 10:02 AM EST Trauma Daily Progress Note ID/Mechanism of injury:55 y.o. Male admitted on 10/26/2020 following being found down for the management of Spinal injuries (Please see below box for a complete summary of injuries) 24 Hour Events: - clamping trial started this morning - TRIMMER MEAT cleared for dysphagia soft and nectar thick liquids yesterday, but keeping NPO for ileus Subjective: Pt with many questions about clamping trial this morning Wanted to know why he is not allowed to eat after TRIMMER MEAT cleared him, questions answered. Current Medications: ??? [...] qHS Dysphagia - PEG, TF (held) - TRIMMER MEAT 11/08: dysphagia soft, nectar thick liquids (once okay from GI standpoint) Resolved in hospital issues: Chronic health conditions: Fluids/Electrolytes: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 Resulting Agency Comment Spec In Lab Thom Lemon MD MICROBIOLOGY - GENER AL ORDERABLES [facility] [place] [address] * Differential, Automated (11/17/2020 12:11 AM EST) Neutrophil % 67.1 % [facility] Neutrophil Absolute 4.24 1.70 - 6.10 x10(3)/[facility] Lymph % 20.5 % [facility] Lymphocytes Abs 1.3 0.9 - 3.2 x10(3)/[facility] Monocyte % 8.8 % [facility] Monocyte Abs 0.6 0.3 - 0.9 x10(3)/[facility] LAB[facility] Eos % 2.7 % [facility] Eosinophils Abs 0.2 0.0 - 0.4 x10(3)/[facility] Basophil % 0.3 % [facility] Baso Absolute 0.0 0.0 - 0.1 x10(3)/[facility] Immature Gran % 0.60 % [facility] Comment: Immature granulocytes(IG's)percentage and absolute count will include metamyelocytes, myelocytes, and promyelocytes. Blood smears from CBCs yielding IG's will be scanned manually for concordance. If this scan disagrees with the automated IG or if promyelocytes are noted, a manual differential will be performed. Immature Gran Absolute 0.04 0.00 - 0.04 x10(3)/mcL [facility] Blood specimen (specimen) 11/17/2020 12:11 AM EST 11/17/2020 12:38 AM EST Narrative Resulting Agency Comment Spec In Lab Norberto Gonzalez MD HEMATOLOGY ORDERABLE S [facility] [place] [address] * (ABNORMAL) Hemogram (11/17/2020 12:11 AM EST) White Blood Cell 6.3 4.0 - 9.5 x10(3)/mc L [facility] Red Blood Cell 3.59(L) 4.58 - 5.54 x10(6)/mc L [facility] Hemoglobin 10.9(L) 13.7 - 16.5 gm/dL [facility] Hematocrit 33.2(L) 40.5 - 48.5 % [facility] Mean Cell Volume 92.5 82.9 - 93.1 fL [facility] Mean Cell Hemoglobin 30.4 27.5 - 32.1 pg [facility] Mean Cell Hemoglobin Concentration 32.8 32.0 - 35.7 gm/dL [facility] Platelet 223 145 - 357 x10(3)/ L [facility] RDW Standard Deviation 42.6 36.0 - 45.0 [facility] RDW coefficient of variation 12.8 11.4 - 13.8 % [facility] Mean Platelet Volume 11.1 7.6 - 12.9 fL [facility] NRBC% auto 0.0 % [facility] NRBC Absolute 0.000 0.000 - 0.000 x10(3)/mc L [facility] Blood specimen (specimen) 11/17/2020 12:11 AM EST 11/17/2020 12:38 AM EST Narrative Resulting Agency Comment Spec In Lab Norberto Gonzalez MD HEMATOLOGY ORDERABLE S Performing Organization Address City/[facility]/ZIP Co de Phone Number [facility] [place] [address] * Phosphorus (11/17/2020 12:11 AM EST) Phosphorus 4.0 2.5 - 4.5 mg/dL [facility] Blood specimen (specimen) 11/17/2020 12:11 AM EST 11/17/2020 12:38 AM EST Narrative Resulting Agency Comment Spec In Lab Radha Bolden MD CHEMISTRY ORDERABLES Performing Organization Address [facility] Co de Phone Number [facility] [place] [address] * Magnesium (11/17/2020 12:11 AM EST) Magnesium 0.77 0.69 - 1.07 mmol/L [facility] Blood specimen (specimen) 11/17/2020 12:11 AM EST 11/17/2020 12:38 AM EST Narrative Resulting Agency Comment Spec In Lab Radha Bolden MD CHEMISTRY ORDERABLES Performing Organization Address City/[facility] Co de Phone Number [facility] [place] [address] * (ABNORMAL) Basic Metabolic Panel (non-fasting) (11/17/2020 12:11 AM EST) Glucose 121 65 - 199 mg/dL [facility] Comment:Diabetes: >=200 mg/d L plus symptoms Blood Urea Nitrogen 31(H) 10 - 20 mg/dL [facility] Creatinine 0.92 0.80 - 1.50 mg/dL [facility] Sodium 137 135 - 145 mmol/L [facility] Potassium 4.0 3.5 - 5.0 mmol/L [facility] Comment: Please note: ??Patients with WBC >100,000 may have falsely elevated Potassium levels. ??For accurate Potassium quantification in these patients send serum separator tube (gold top) for subsequent determinations. ??Contact the Clinical Chemistry Laboratory if there are any questions. Chloride 103 98 - 107 mmol/L [facility] Carbon Dioxide 23 22 - 31 mmol/L [facility] Anion Gap 11 5 - 15 mmol/L [facility] Calcium 9.3 8.5 - 10.5 mg/dL [facility] Est Glomerular Filtration Rate 95 >=60 mL/min/1. 73 m?? [facility] Comment: This patient? [...] Bolden MD CHEMISTRY ORDERABLES Performing Organization Address City/State/[facility] Co de Phone Number [facility] [place] [address] * XR PICC Placement Over 5 Years [...] ? Electronically signed by: Natalie Ann MD, [facility] ([phone]), at 11/16/2020 4:20 PM Narrative 11/16/2020 4:20 [...] below. Electronically signed by: Natalie Ann MD, [facility]([phone]), at 11/16/2020 4:20 PM Adrienne Medellin MD [...] to the planned procedure. Hand Hygiene: The junior brand manager did perform hand hygiene prior to line insertion. Catheter type: PICC Lot number: [id number] Procedure Technique: Skin was prepped with chlorhexidine. [...] AM EST) Neutrophil % 64.5 % [facility] Neutrophil Absolute 4.80 1.70 - 6.10 x10(3)/[facility] Lymph % 23.5 % [facility] Lymphocytes Abs 1.8 0.9 - 3.2 x10(3)/[facility] Monocyte % 7.9 % [facility] Monocyte Abs 0.6 0.3 - 0.9 x10(3)/[facility] Eos % 2.7 % [facility] Eosinophils Abs 0.2 0.0 - 0.4 x10(3)/[facility] Basophil % 0.5 % [facility] Baso Absolute 0.0 0.0 - 0.1 x10(3)/[facility] Immature Gran % 0.90 % [facility] Comment: Immature granulocytes(IG's)percentage and absolute count will include metamyelocytes, myelocytes, and promyelocytes. Blood smears from CBCs yielding IG's will be scanned manually for concordance. If this scan disagrees with the automated IG or if promyelocytes are noted, a manual differential will be performed. Immature Gran Absolute 0.07(H) 0.00 - 0.04 x10(3)/[facility] Blood specimen (specimen) 11/16/2020 12:31 AM EST 11/16/2020 12:38 AM EST Narrative Resulting Agency Comment Spec In Lab Norberto Gonzalez MD HEMATOLOGY ORDERABLE S [facility] [place] [address] * (ABNORMAL) Hemogram (11/16/2020 12:31 AM EST) White Blood Cell 7.4 4.0 - 9.5 x10(3)/[facility] Red Blood Cell 3.59(L) 4.58 - 5.54 x10(6)/[facility] Hemoglobin 10.9(L) 13.7 - 16.5 gm/dL [facility] Hematocrit 32.7(L) 40.5 - 48.5 % [facility] Mean Cell Volume 91.1 82.9 - 93.1 fL [facility] Mean Cell Hemoglobin 30.4 27.5 - 32.1 pg [facility] Mean Cell Hemoglobin Concentration 33.3 32.0 - 35.7 gm/dL [facility] Platelet 254 145 - 357 x10(3)/mc L [facility] RDW Standard Deviation 41.8 36.0 - 45.0 fL [facility] RDW coefficient of variation 12.7 11.4 - 13.8 % [facility] Mean Platelet Volume 11.0 7.6 - 12.9 fL [facility] NRBC% auto 0.0 % [facility] NRBC Absolute 0.000 0.000 - 0.000 x10(3)/mc L [facility] Blood specimen (specimen) 11/16/2020 12:31 AM EST 11/16/2020 12:38 AM EST Narrative Resulting Agency Comment Spec In Lab Norberto Gonzalez MD HEMATOLOGY ORDERABLE S Performing Organization Address City/[facility]/ZIP Co de Phone Number [facility] [place] [address] * Phosphorus (11/16/2020 12:31 AM EST) Phosphorus 4.4 2.5 - 4.5 mg/dL [facility] Blood specimen (specimen) 11/16/2020 12:31 AM EST 11/16/2020 12:38 AM EST Narrative Resulting Agency Comment Spec In Lab Radha Bolden MD CHEMISTRY ORDERABLES Performing Organization Address City/[facility]/ZIP Co de Phone Number [facility] [place] [address] * Magnesium (11/16/2020 12:31 AM EST) Magnesium 0.78 0.69 - 1.07 mmol/L [facility] Blood specimen (specimen) 11/16/2020 12:31 AM EST 11/16/2020 12:38 AM EST Narrative Resulting Agency Comment Spec In Lab Radha Bolden MD CHEMISTRY ORDERABLES [facility] [address] [place] [address] * (ABNORMAL) Basic Metabolic Panel (non-fasting) (11/16/2020 12:31 AM EST) Glucose 116 65 - 199 mg/dL [facility] Comment:Diabetes: >=200 mg/d L plus symptoms Blood Urea Nitrogen 30(H) 10 - 20 mg/dL [facility] Creatinine 0.99 0.80 - 1.50 mg/dL [facility] Sodium 136 135 - 145 mmol/L [facility] Potassium 4.1 3.5 - 5.0 mmol/L [facility] Comment: Please note: ??Patients with WBC >100,000 may have falsely elevated Potassium levels. ??For accurate Potassium quantification in these patients send serum separator tube (gold top) for subsequent determinations. ??Contact the Clinical Chemistry Laboratory if there are any questions. Chloride 104 98 - 107 mmol/L [facility] Carbon Dioxide 22 22 - 31 mmol/L [facility] Anion Gap 10 5 - 15 mmol/L [facility] Calcium 9.3 8.5 - 10.5 mg/dL [facility] Est Glomerular Filtration Rate 87 >=60 mL/min/1. 73 m?? [facility] Comment: This patient? [...] In Lab Radha Bolden MD CHEMISTRY ORDERABLES [facility] [place] [address] * XR Shoulder Left (Generic) (11/15/2020 7:01 [...] ? Electronically signed by: Eliane Stewart MD, [facility] ([phone]), at 11/15/2020 7:36 PM Narrative 11/15/2020 7:36 [...] below. Electronically signed by: Eliane Stewart MD, [facility]([phone]), at 11/15/2020 7:36 PM Adrienne Medellin MD [...] ? Electronically signed by: Crys Joaquin MD, [facility] ([phone]), at 11/15/2020 3:57 PM Narrative 11/15/2020 3:57 [...] below. Electronically signed by: Crys Joaquin MD, [facility]([phone]), at 11/15/2020 3:57 PM Adrienne Medellin MD [...] the number below. ? Electronically signed by: rTe Mendez MD, [facility] ([phone]), at 11/15/2020 3:08 PM Narrative 11/15/2020 3:08 [...] 2:18 AM EST) Neutrophil % 62.5 % [facility] Neutrophil Absolute 4.66 1.70 - 6.10 x10(3)/mc L [facility] Lymph % 25.2 % [facility] Lymphocytes Abs 1.9 0.9 - 3.2 x10(3)/mc L [facility] Monocyte % 8.6 % [facility] Monocyte Abs 0.6 0.3 - 0.9 x10(3)/mc L [facility] Eos % 2.1 % [facility] Eosinophils Abs 0.2 0.0 - 0.4 x10(3)/mc L [facility] Basophil % 0.7 % [facility] Baso Absolute 0.0 0.0 - 0.1 x10(3)/mc L [facility] Immature Gran % 0.90 % [facility] Comment: Immature granulocytes(IG's)percentage and absolute count will include metamyelocytes, myelocytes, and promyelocytes. Blood smears from CBCs yielding IG's will be scanned manually for concordance. If this scan disagrees with the automated IG or if promyelocytes are noted, a manual differential will be performed. Immature Gran Absolute 0.07(H) 0.00 - 0.04 x10(3)/ L [facility] Blood specimen (specimen) 11/15/2020 2:18 AM EST 11/15/2020 2:30 AM EST Narrative Resulting Agency Comment Spec In Lab Norberto Gonzalez MD HEMATOLOGY ORDERABLE S [facility] [place] [address] * (ABNORMAL) Hemogram (11/15/2020 2:18 AM EST) White Blood Cell 7.5 4.0 - 9.5 x10(3)/ L [facility] Red Blood Cell 3.63(L) 4.58 - 5.54 x10(6)/mc L [facility] Hemoglobin 10.9(L) 13.7 - 16.5 gm/dL [facility] Hematocrit 33.8(L) 40.5 - 48.5 % [facility] Mean Cell Volume 93.1 82.9 - 93.1 fL [facility] Mean Cell Hemoglobin 30.0 27.5 - 32.1 pg [facility] Mean Cell Hemoglobin Concentration 32.2 32.0 - 35.7 gm/dL [facility] Platelet 261 145 - 357 x10(3)/ L [facility] RDW Standard Deviation 43.1 36.0 - 45.0 fL [facility] RDW coefficient of variation 12.7 11.4 - 13.8 % [facility] Mean Platelet Volume 10.5 7.6 - 12.9 fL [facility] NRBC% auto 0.0 % [facility] NRBC Absolute 0.000 0.000 - 0.000 x10(3)/mc L [facility] Blood specimen (specimen) 11/15/2020 2:18 AM EST 11/15/2020 2:30 AM EST Narrative Resulting Agency Comment Spec In Lab Norberto Gonzalez MD HEMATOLOGY ORDERABLE S Performing Organization Address City/[facility]/ZIP Co de Phone Number [facility] [place] [address] * Phosphorus (11/15/2020 2:18 AM EST) Phosphorus 4.0 2.5 - 4.5 mg/dL [facility] Blood specimen (specimen) 11/15/2020 2:18 AM EST 11/15/2020 2:30 AM EST Narrative Resulting Agency Comment Spec In Lab Radha Bolden MD CHEMISTRY ORDERABLES Performing Organization Address City/[facility]/ZIP Co de Phone Number [facility] [place] [address] * Magnesium (11/15/2020 2:18 AM EST) Magnesium 0.77 0.69 - 1.07 mmol/L [facility] Blood specimen (specimen) 11/15/2020 2:18 AM EST 11/15/2020 2:30 AM EST Narrative Resulting Agency Comment Spec In Lab Radha Bolden MD CHEMISTRY ORDERABLES Performing Organization Address City/[facility]/ZIP Co de Phone Number [facility] [place] [address] * (ABNORMAL) Basic Metabolic Panel (non-fasting) (11/15/2020 2:18 AM EST) Glucose 112 65 - 199 mg/dL [facility] Comment:Diabetes: >=200 mg/d L plus symptoms Blood Urea Nitrogen 34(H) 10 - 20 mg/dL [facility] [facility] Creatinine 0.90 0.80 - 1.50 mg/dL [facility] Sodium 138 135 - 145 mmol/L [facility] Potassium 4.1 3.5 - 5.0 mmol/L [facility] Comment: Please note: ??Patients with WBC >100,000 may have falsely elevated Potassium levels. ??For accurate Potassium quantification in these patients send serum separator tube (gold top) for subsequent determinations. ??Contact the Clinical Chemistry Laboratory if there are any questions. Chloride 106 98 - 107 mmol/L [facility] Carbon Dioxide 20(L) 22 - 31 mmol/L [facility] Anion Gap 12 5 - 15 mmol/L [facility] Calcium 9.3 8.5 - 10.5 mg/dL [facility] Est Glomerular Filtration Rate 97 >=60 mL/min/1. 73 m?? [facility] Comment: This patient? [...] In Lab Radha Bolden MD CHEMISTRY ORDERABLES [facility] [place] [address] * (ABNORMAL) Differential, Automated (11/14/2020 1:12 AM EST) Neutrophil % 70.5 % [facility] Neutrophil Absolute 5.25 1.70 - 6.10 x10(3)/[facility] Lymph % 18.8 % [facility] Lymphocytes Abs 1.4 0.9 - 3.2 x10(3)/[facility] Monocyte % 6.8 % [facility] Monocyte Abs 0.5 0.3 - 0.9 x10(3)/[facility] Eos % 2.7 % [facility] Eosinophils Abs 0.2 0.0 - 0.4 x10(3)/[facility] Basophil % 0.4 % [facility] Baso Absolute 0.0 0.0 - 0.1 x10(3)/[facility] Immature Gran % 0.80 % [facility] Comment: Immature granulocytes(IG's)percentage and absolute count will include metamyelocytes, myelocytes, and promyelocytes. Blood smears from CBCs yielding IG's will be scanned manually for concordance. If this scan disagrees with the automated IG or if promyelocytes are noted, a manual differential will be performed. Immature Gran Absolute 0.06(H) 0.00 - 0.04 x10(3)/[facility] Blood specimen (specimen) 11/14/2020 1:12 AM EST 11/14/2020 1:31 AM EST Narrative Resulting Agency Comment Spec In Lab Norberto Gonzalez MD HEMATOLOGY ORDERABLE S [facility] [place] [address] * (ABNORMAL) Hemogram (11/14/2020 1:12 AM EST) Pathologist [facility] White Blood Cell 7.4 4.0 - 9.5 x10(3)/[facility] Red Blood Cell 3.39(L) 4.58 - 5.54 x10(6)/[facility] Hemoglobin 10.4(L) 13.7 - 16.5 gm/dL [facility] Hematocrit 31.6(L) 40.5 - 48.5 % [facility] Mean Cell Volume 93.2(H) 82.9 - 93.1 fL [facility] Mean Cell Hemoglobin 30.7 27.5 - 32.1 pg [facility] Mean Cell Hemoglobin Concentration 32.9 32.0 - 35.7 gm/dL [facility] Platelet 314 145 - 357 x10(3)/[facility] RDW Standard Deviation 42.7 36.0 - 45.0 [facility] RDW coefficient of variation 12.5 11.4 - 13.8 % [facility] Mean Platelet Volume 10.7 7.6 - 12.9 [facility] NRBC% auto 0.0 % [facility] NRBC Absolute 0.000 0.000 - 0.000 x10(3)/[facility] Blood specimen (specimen) 11/14/2020 1:12 AM EST 11/14/2020 1:31 AM EST Narrative Resulting Agency Comment Spec In Lab Norberto Gonzalez MD HEMATOLOGY ORDERABLE S [facility] [place] [address] * Phosphorus (11/14/2020 1:12 AM EST) Phosphorus 4.1 2.5 - 4.5 mg/dL [facility] Blood specimen (specimen) 11/14/2020 1:12 AM EST 11/14/2020 1:31 AM EST Narrative Resulting Agency Comment Spec In Lab Radha Bolden MD CHEMISTRY ORDERABLES Performing Organization Address City/[facility]/ZIP Co de Phone Number [facility] [place] [address] * Magnesium (11/14/2020 1:12 AM EST) Pathologist [facility] Magnesium 0.77 0.69 - 1.07 mmol/L [facility] Blood specimen (specimen) 11/14/2020 1:12 AM EST 11/14/2020 1:31 AM EST Narrative Resulting Agency Comment Spec In Lab Radha Bolden MD CHEMISTRY ORDERABLES Performing Organization Address [facility] Co de Phone Number [facility] [place] [address] * (ABNORMAL) Basic Metabolic Panel (non-fasting) (11/14/2020 1:12 AM EST) Pathologist [facility] Glucose 118 65 - 199 mg/dL [facility] Comment:Diabetes: >=200 mg/d L plus symptoms Blood Urea Nitrogen 38(H) 10 - 20 mg/dL [facility] Creatinine 0.85 0.80 - 1.50 mg/dL [facility] Sodium 138 135 - 145 mmol/L [facility] Potassium 4.1 3.5 - 5.0 mmol/L [facility] Comment: Please note: ??Patients with WBC >100,000 may have falsely elevated Potassium levels. ??For accurate Potassium quantification in these patients send serum separator tube (gold top) for subsequent determinations. ??Contact the Clinical Chemistry Laboratory if there are any questions. Chloride 109(H) 98 - 107 mmol/L [facility] Carbon Dioxide 19(L) 22 - 31 mmol/L [facility] Anion Gap 10 5 - 15 mmol/L [facility] Calcium 9.1 8.5 - 10.5 mg/dL [facility] Est Glomerular Filtration Rate 99 >=60 mL/min/1. 73 m?? [facility] Comment: This patient? [...] In Lab Radha Bolden MD CHEMISTRY ORDERABLES [facility] [place] [address] * (ABNORMAL) Differential, Automated (11/13/2020 3:58 AM EST) Neutrophil % 72.9 % [facility] Neutrophil Absolute 6.82(H) 1.70 - 6.10 x10(3)/mc L [facility] Lymph % 16.4 % [facility] Lymphocytes Abs 1.5 0.9 - 3.2 x10(3)/mc L [facility] Monocyte % 6.8 % [facility] Monocyte Abs 0.6 0.3 - 0.9 x10(3)/mc L [facility] Eos % 2.4 % [facility] Eosinophils Abs 0.2 0.0 - 0.4 x10(3)/mc L [facility] Basophil % 0.5 % [facility] Baso Absolute 0.0 0.0 - 0.1 x10(3)/mc L [facility] Immature Gran % 1.00 % [facility] Comment: Immature granulocytes(IG's)percentage and absolute count will include metamyelocytes, myelocytes, and promyelocytes. Blood smears from CBCs yielding IG's will be scanned manually for concordance. If this scan disagrees with the automated IG or if promyelocytes are noted, a manual differential will be performed. Immature Gran Absolute 0.09(H) 0.00 - 0.04 x10(3)/mc L [facility] Blood specimen (specimen) 11/13/2020 3:58 AM EST 11/13/2020 4:12 AM EST Narrative Resulting Agency Comment Spec In Lab Norberto Gonzalez MD HEMATOLOGY ORDERABLE S [facility] [place] [address] * (ABNORMAL) Hemogram (11/13/2020 3:58 AM EST) White Blood Cell 9.4 4.0 - 9.5 x10(3)/mc L [facility] Red Blood Cell 3.41(L) 4.58 - 5.54 x10(6)/mc L [facility] Hemoglobin 10.4(L) 13.7 - 16.5 gm/dL [facility] Hematocrit 31.7(L) 40.5 - 48.5 % [facility] Mean Cell Volume 93.0 82.9 - 93.1 fL [facility] Mean Cell Hemoglobin 30.5 27.5 - 32.1 pg [facility] Mean Cell Hemoglobin Concentration 32.8 32.0 - 35.7 gm/dL [facility] Platelet 330 145 - 357 x10(3)/mc L [facility] RDW Standard Deviation 41.9 36.0 - 45.0 fL [facility] RDW coefficient of variation 12.3 11.4 - 13.8 % [facility] Mean Platelet Volume 10.5 7.6 - 12.9 fL [facility] NRBC% auto 0.0 % [facility] NRBC Absolute 0.000 0.000 - 0.000 x10(3)/mc L [facility] Blood specimen (specimen) 11/13/2020 3:58 AM EST 11/13/2020 4:12 AM EST Narrative Resulting Agency Comment Spec In Lab Norberto Gonzalez MD HEMATOLOGY ORDERABLE S Performing Organization Address [facility]/ZIP Co de Phone Number [facility] [place] [address] * Phosphorus (11/13/2020 3:58 AM EST) Phosphorus 3.5 2.5 - 4.5 mg/dL [facility] Blood specimen (specimen) 11/13/2020 3:58 AM EST 11/13/2020 4:12 AM EST Narrative Resulting Agency Comment Spec In Lab Radha Bolden MD CHEMISTRY ORDERABLES Performing Organization Address [facility] Co de Phone Number [facility] [place] [address] * Magnesium (11/13/2020 3:58 AM EST) Magnesium 0.76 0.69 - 1.07 mmol/L [facility] Blood specimen (specimen) 11/13/2020 3:58 AM EST 11/13/2020 4:12 AM EST Narrative Resulting Agency Comment Spec In Lab Radha Bolden MD CHEMISTRY ORDERABLES Performing Organization Address [facility] Co de Phone Number [facility] [place] [address] * (ABNORMAL) Basic Metabolic Panel (non-fasting) (11/13/2020 3:58 AM EST) Glucose 109 65 - 199 mg/dL [facility] Comment:Diabetes: >=200 mg/d L plus symptoms Blood Urea Nitrogen 41(H) 10 - 20 mg/dL [facility] Creatinine 0.77(L) 0.80 - 1.50 mg/dL [facility] Sodium 139 135 - 145 mmol/L [facility] Potassium 4.2 3.5 - 5.0 mmol/L [facility] Comment: Please note: ??Patients with WBC >100,000 may have falsely elevated Potassium levels. ??For accurate Potassium quantification in these patients send serum separator tube (gold top) for subsequent determinations. ??Contact the Clinical Chemistry Laboratory if there are any questions. Chloride 110(H) 98 - 107 mmol/L [facility] Carbon Dioxide 20(L) 22 - 31 mmol/L [facility] Anion Gap 9 5 - 15 mmol/L [facility] Calcium 8.9 8.5 - 10.5 mg/dL [facility] Est Glomerular Filtration Rate 104 >=60 mL/min/1. 73 m?? [facility] Comment: This patient? [...] In Lab Radha Bolden MD CHEMISTRY ORDERABLES [facility] [place] [address] * (ABNORMAL) Differential, Automated (11/12/2020 2:40 AM EST) Neutrophil % 66.6 % [facility] Neutrophil Absolute 5.38 1.70 - 6.10 x10(3)/ L [facility] Lymph % 21.8 % [facility] Lymphocytes Abs 1.8 0.9 - 3.2 x10(3)/[facility] Monocyte % 6.9 % [facility] Monocyte Abs 0.6 0.3 - 0.9 x10(3)/[facility] Eos % 3.2 % [facility] Eosinophils Abs 0.3 0.0 - 0.4 x10(3)/[facility] Basophil % 0.6 % [facility] Baso Absolute 0.0 0.0 - 0.1 x10(3)/[facility] Immature Gran % 0.90 % [facility] Comment: Immature granulocytes(IG's)percentage and absolute count will include metamyelocytes, myelocytes, and promyelocytes. Blood smears from CBCs yielding IG's will be scanned manually for concordance. If this scan disagrees with the automated IG or if promyelocytes are noted, a manual differential will be performed. Immature Gran Absolute 0.07(H) 0.00 - 0.04 x10(3)/[facility] Blood specimen (specimen) 11/12/2020 2:40 AM EST 11/12/2020 2:47 AM EST Narrative Resulting Agency Comment Spec In Lab Norberto Gonzalez MD HEMATOLOGY ORDERABLE S [facility] [place] [address] * (ABNORMAL) Hemogram (11/12/2020 2:40 AM EST) White Blood Cell 8.1 4.0 - 9.5 x10(3)/[facility] Red Blood Cell 3.39(L) 4.58 - 5.54 x10(6)/[facility] Hemoglobin 10.4(L) 13.7 - 16.5 gm/dL [facility] Hematocrit 31.5(L) 40.5 - 48.5 % [facility] Mean Cell Volume 92.9 82.9 - 93.1 fL [facility] Mean Cell Hemoglobin 30.7 27.5 - 32.1 pg [facility] Mean Cell Hemoglobin Concentration 33.0 32.0 - 35.7 gm/dL [facility] Platelet 326 145 - 357 x10(3)/mc L [facility] RDW Standard Deviation 42.4 36.0 - 45.0 [facility] RDW coefficient of variation 12.4 11.4 - 13.8 % [facility] Mean Platelet Volume 10.5 7.6 - 12.9 [facility] NRBC% auto 0.0 % [facility] NRBC Absolute 0.000 0.000 - 0.000 x10(3)/mc L [facility] Blood specimen (specimen) 11/12/2020 2:40 AM EST 11/12/2020 2:47 AM EST Narrative Resulting Agency Comment Spec In Lab Norberto Gonzalez MD HEMATOLOGY ORDERABLE S Performing Organization Address City/[facility] Co de Phone Number [facility] [place] [address] * Phosphorus (11/12/2020 2:40 AM EST) Phosphorus 4.0 2.5 - 4.5 mg/dL [facility] Blood specimen (specimen) 11/12/2020 2:40 AM EST 11/12/2020 2:47 AM EST Narrative Resulting Agency Comment Spec In Lab Radha Bolden MD CHEMISTRY ORDERABLES Performing Organization Address City/[facility]/ZIP Co de Phone Number [facility] [place] [address] * Magnesium (11/12/2020 2:40 AM EST) Magnesium 0.81 0.69 - 1.07 mmol/L [facility] Blood specimen (specimen) 11/12/2020 2:40 AM EST 11/12/2020 2:47 AM EST Narrative Resulting Agency Comment Spec In Lab Radha Bolden MD CHEMISTRY ORDERABLES [facility] [place] [address] * (ABNORMAL) Basic Metabolic Panel (non-fasting) (11/12/2020 2:40 AM EST) Glucose 97 65 - 199 mg/dL [facility] Comment:Diabetes: >=200 mg/d L plus symptoms Blood Urea Nitrogen 38(H) 10 - 20 mg/dL [facility] Creatinine 0.81 0.80 - 1.50 mg/dL [facility] Sodium 139 135 - 145 mmol/L [facility] Potassium 4.4 3.5 - 5.0 mmol/L [facility] Comment: Please note: ??Patients with WBC >100,000 may have falsely elevated Potassium levels. ??For accurate Potassium quantification in these patients send serum separator tube (gold top) for subsequent determinations. ??Contact the Clinical Chemistry Laboratory if there are any questions. Chloride 108(H) 98 - 107 mmol/L [facility] Carbon Dioxide 21(L) 22 - 31 mmol/L [facility] Anion Gap 10 5 - 15 mmol/L [facility] Calcium 8.9 8.5 - 10.5 mg/dL [facility] Est Glomerular Filtration Rate 101 >=60 mL/min/1. 73 m?? [facility] Comment: This patient? [...] In Lab Radha Bolden MD CHEMISTRY ORDERABLES [facility] [place] [address] * (ABNORMAL) Differential, Automated (11/11/2020 4:15 AM EST) Neutrophil % 68.2 % [facility] Neutrophil Absolute 5.80 1.70 - 6.10 x10(3)/mc L [facility] Lymph % 18.1 % [facility] Lymphocytes Abs 1.5 0.9 - 3.2 x10(3)/mc L [facility] Monocyte % 8.4 % [facility] Monocyte Abs 0.7 0.3 - 0.9 x10(3)/mc L [facility] Eos % 3.8 % [facility] Eosinophils Abs 0.3 0.0 - 0.4 x10(3)/mc L [facility] Basophil % 0.6 % [facility] Baso Absolute 0.0 0.0 - 0.1 x10(3)/mc L [facility] Immature Gran % 0.90 % [facility] Comment: Immature granulocytes(IG's)percentage and absolute count will include metamyelocytes, myelocytes, and promyelocytes. Blood smears from CBCs yielding IG's will be scanned manually for concordance. If this scan disagrees with the automated IG or if promyelocytes are noted, a manual differential will be performed. Immature Gran Absolute 0.08(H) 0.00 - 0.04 x10(3)/mc L [facility] Blood specimen (specimen) 11/11/2020 4:15 AM EST 11/11/2020 4:37 AM EST Narrative Resulting Agency Comment Spec In Lab Norberto Gonzalez MD HEMATOLOGY ORDERABLE S [facility] [place] [address] * (ABNORMAL) Hemogram (11/11/2020 4:15 AM EST) White Blood Cell 8.5 4.0 - 9.5 x10(3)/ L [facility] Red Blood Cell 3.34(L) 4.58 - 5.54 x10(6)/[facility] Hemoglobin 10.2(L) 13.7 - 16.5 gm/dL [facility] Hematocrit 31.3(L) 40.5 - 48.5 % [facility] Mean Cell Volume 93.7(H) 82.9 - 93.1 [facility] Mean Cell Hemoglobin 30.5 27.5 - 32.1 pg [facility] Mean Cell Hemoglobin Concentration 32.6 32.0 - 35.7 gm/dL [facility] Platelet 329 145 - 357 x10(3)/ L [facility] RDW Standard Deviation 42.5 36.0 - 45.0 [facility] RDW coefficient of variation 12.4 11.4 - 13.8 % [facility] Mean Platelet Volume 10.3 7.6 - 12.9 [facility] NRBC% auto 0.0 % [facility] NRBC Absolute 0.000 0.000 - 0.000 x10(3)/ L [facility] Blood specimen (specimen) 11/11/2020 4:15 AM EST 11/11/2020 4:37 AM EST Narrative Resulting Agency Comment Spec In Lab Norberto Gonzalez MD HEMATOLOGY ORDERABLE S Performing Organization Address City/[facility]/ZIP Co de Phone Number [facility] [place] [address] * Phosphorus (11/11/2020 4:15 AM EST) Phosphorus 4.4 2.5 - 4.5 mg/dL [facility] Blood specimen (specimen) 11/11/2020 4:15 AM EST 11/11/2020 4:37 AM EST Narrative Resulting Agency Comment Spec In Lab Radha Bolden MD CHEMISTRY ORDERABLES Performing Organization Address [facility] Co de Phone Number [facility] [place] [address] * Magnesium (11/11/2020 4:15 AM EST) Magnesium 0.82 0.69 - 1.07 mmol/L [facility] Blood specimen (specimen) 11/11/2020 4:15 AM EST 11/11/2020 4:37 AM EST Narrative Resulting Agency Comment Spec In Lab Radha Bolden MD CHEMISTRY ORDERABLES Performing Organization Address [facility]/ZIP Co de Phone Number [facility] [place] [address] * (ABNORMAL) Basic Metabolic Panel (non-fasting) (11/11/2020 4:15 AM EST) Glucose 96 65 - 199 mg/dL [facility] Comment:Diabetes: >=200 mg/d L plus symptoms Blood Urea Nitrogen 38(H) 10 - 20 mg/dL [facility] Creatinine 0.79(L) 0.80 - 1.50 mg/dL [facility] Sodium 138 135 - 145 mmol/L [facility] Potassium 4.5 3.5 - 5.0 mmol/L [facility] Comment: Please note: ??Patients with WBC >100,000 may have falsely elevated Potassium levels. ??For accurate Potassium quantification in these patients send serum separator tube (gold top) for subsequent determinations. ??Contact the Clinical Chemistry Laboratory if there are any questions. Chloride 107 98 - 107 mmol/L [facility] Carbon Dioxide 21(L) 22 - 31 mmol/L [facility] Anion Gap 10 5 - 15 mmol/L [facility] Calcium 8.8 8.5 - 10.5 mg/dL [facility] Est Glomerular Filtration Rate 103 >=60 mL/min/1. 73 m?? [facility] Comment: This patient? [...] In Lab Radha Bolden MD CHEMISTRY ORDERABLES [facility] [place] [address] * (ABNORMAL) Differential, Automated (11/10/2020 1:00 AM EST) Neutrophil % 65.3 % [facility] Neutrophil Absolute 4.43 1.70 - 6.10 x10(3)/mc L [facility] Lymph % 17.6 % [facility] Lymphocytes Abs 1.2 0.9 - 3.2 x10(3)/mc L [facility] Monocyte % 10.2 % [facility] Monocyte Abs 0.7 0.3 - 0.9 x10(3)/[facility] Eos % 5.0 % [facility] Eosinophils Abs 0.3 0.0 - 0.4 x10(3)/[facility] Basophil % 0.6 % [facility] Baso Absolute 0.0 0.0 - 0.1 x10(3)/[facility] Immature Gran % 1.30 % [facility] Comment: Immature granulocytes(IG's)percentage and absolute count will include metamyelocytes, myelocytes, and promyelocytes. Blood smears from CBCs yielding IG's will be scanned manually for concordance. If this scan disagrees with the automated IG or if promyelocytes are noted, a manual differential will be performed. Immature Gran Absolute 0.09(H) 0.00 - 0.04 x10(3)/[facility] Blood specimen (specimen) 11/10/2020 1:00 AM EST 11/10/2020 1:32 AM EST Narrative Resulting Agency Comment Spec In Lab Norberto Gonzalez MD HEMATOLOGY ORDERABLE S [facility] [place] [address] * (ABNORMAL) Hemogram (11/10/2020 1:00 AM EST) White Blood Cell 6.8 4.0 - 9.5 x10(3)/[facility] Red Blood Cell 3.38(L) 4.58 - 5.54 x10(6)/[facility] Hemoglobin 10.2(L) 13.7 - 16.5 gm/dL [facility] Hematocrit 31.5(L) 40.5 - 48.5 % [facility] Mean Cell Volume 93.2(H) 82.9 - 93.1 fL [facility] Mean Cell Hemoglobin 30.2 27.5 - 32.1 pg [facility] Mean Cell Hemoglobin Concentration 32.4 32.0 - 35.7 gm/dL [facility] Platelet 358(H) 145 - 357 x10(3)/mc L [facility] RDW Standard Deviation 42.3 36.0 - 45.0 [facility] RDW coefficient of variation 12.3 11.4 - 13.8 % [facility] Mean Platelet Volume 10.6 7.6 - 12.9 [facility]ORY NRBC% auto 0.0 % [facility] NRBC Absolute 0.000 0.000 - 0.000 x10(3)/mc L [facility] Blood specimen (specimen) 11/10/2020 1:00 AM EST 11/10/2020 1:32 AM EST Narrative Resulting Agency Comment Spec In Lab Norberto Gonzalez MD HEMATOLOGY ORDERABLE S [facility] [place] [address] * Phosphorus (11/10/2020 1:00 AM EST) Phosphorus 3.2 2.5 - 4.5 mg/dL [facility] Blood specimen (specimen) 11/10/2020 1:00 AM EST 11/10/2020 1:32 AM EST Narrative Resulting Agency Comment Spec In Lab Radha oBlden MD CHEMISTRY ORDERABLES [facility] [place] [address] * Magnesium (11/10/2020 1:00 AM EST) Magnesium 0.87 0.69 - 1.07 mmol/L [facility] Blood specimen (specimen) 11/10/2020 1:00 AM EST 11/10/2020 1:32 AM EST Narrative Resulting Agency Comment Spec In Lab Radha Bolden MD CHEMISTRY ORDERABLES [facility] [place] [address] * (ABNORMAL) Basic Metabolic Panel (non-fasting) (11/10/2020 1:00 AM EST) Glucose 105 65 - 199 mg/dL [facility] Comment:Diabetes: >=200 mg/d L plus symptoms Blood Urea Nitrogen 36(H) 10 - 20 mg/dL [facility] Creatinine 0.91 0.80 - 1.50 mg/dL [facility] Sodium 137 135 - 145 mmol/L [facility] Potassium 4.6 3.5 - 5.0 mmol/L [facility] Comment: Please note: ??Patients with WBC >100,000 may have falsely elevated Potassium levels. ??For accurate Potassium quantification in these patients send serum separator tube (gold top) for subsequent determinations. ??Contact the Clinical Chemistry Laboratory if there are any questions. Chloride 103 98 - 107 mmol/L [facility] Carbon Dioxide 23 22 - 31 mmol/L [facility] Anion Gap 11 5 - 15 mmol/L [facility] Calcium 8.9 8.5 - 10.5 mg/dL [facility] Est Glomerular Filtration Rate 96 >=60 mL/min/1. 73 m?? [facility] Comment: This patient? [...] In Lab Radha Bolden MD CHEMISTRY ORDERABLES [facility] [place] [address] * XR Cervical Spine 2 or 3 [...] ? Electronically signed by: Crys Joaquin MD, [facility] ([phone]), at 11/09/2020 3:29 PM Narrative 11/09/2020 3:29 [...] 2:25 AM EST) Neutrophil % 66.7 % [facility] Neutrophil Absolute 4.46 1.70 - 6.10 x10(3)/mc L [facility] Lymph % 15.2 % [facility] Lymphocytes Abs 1.0 0.9 - 3.2 x10(3)/mc L [facility] Monocyte % 11.8 % [facility] Monocyte Abs 0.8 0.3 - 0.9 x10(3)/mc L [facility] Eos % 4.8 % [facility] Eosinophils Abs 0.3 0.0 - 0.4 x10(3)/[facility] Basophil % 0.6 % [facility] Baso Absolute 0.0 0.0 - 0.1 x10(3)/[facility] Immature Gran % 0.90 % [facility] Comment: Immature granulocytes(IG's)percentage and absolute count will include metamyelocytes, myelocytes, and promyelocytes. Blood smears from CBCs yielding IG's will be scanned manually for concordance. If this scan disagrees with the automated IG or if promyelocytes are noted, a manual differential will be performed. Immature Gran Absolute 0.06(H) 0.00 - 0.04 x10(3)/[facility] Blood specimen (specimen) 11/09/2020 2:25 AM EST 11/09/2020 2:45 AM EST Narrative Resulting Agency Comment Spec In Lab Norberto Gonzalez MD HEMATOLOGY ORDERABLE S [facility] [place] [address] * (ABNORMAL) Hemogram (11/09/2020 2:25 AM EST) White Blood Cell 6.7 4.0 - 9.5 x10(3)/[facility] Red Blood Cell 3.27(L) 4.58 - 5.54 x10(6)/[facility] Hemoglobin 9.8(L) 13.7 - 16.5 gm/dL [facility] Hematocrit 30.7(L) 40.5 - 48.5 % [facility] Mean Cell Volume 93.9(H) 82.9 - 93.1 fL [facility] Mean Cell Hemoglobin 30.0 27.5 - 32.1 pg [facility] Mean Cell Hemoglobin Concentration 31.9(L) 32.0 - 35.7 gm/dL [facility] Platelet 322 145 - 357 x10(3)/mc L [facility] RDW Standard Deviation 42.5 36.0 - 45.0 fL [facility] RDW coefficient of variation 12.4 11.4 - 13.8 % [facility] Mean Platelet Volume 10.5 7.6 - 12.9 fL [facility] NRBC% auto 0.0 % [facility] NRBC Absolute 0.000 0.000 - 0.000 x10(3)/mc L [facility] Blood specimen (specimen) 11/09/2020 2:25 AM EST 11/09/2020 2:45 AM EST Narrative Resulting Agency Comment Spec In Lab Norberto Gonzalez MD HEMATOLOGY ORDERABLE S Performing Organization Address [facility] [place] [address] * Phosphorus (11/09/2020 2:25 AM EST) Phosphorus 4.0 2.5 - 4.5 mg/dL [facility] Blood specimen (specimen) 11/09/2020 2:25 AM EST 11/09/2020 2:45 AM EST Narrative Resulting Agency Comment Spec In Lab Radha Bolden MD CHEMISTRY ORDERABLES Performing Organization Address [facility] Co de Phone Number [facility] [place] [address] * Magnesium (11/09/2020 2:25 AM EST) Magnesium 0.93 0.69 - 1.07 mmol/L [facility] Blood specimen (specimen) 11/09/2020 2:25 AM EST 11/09/2020 2:45 AM EST Narrative Resulting Agency Comment Spec In Lab Radha Bolden MD CHEMISTRY ORDERABLES Performing Organization Address [facility] Co de Phone Number [facility] [place] [address] * (ABNORMAL) Basic Metabolic Panel (non-fasting) (11/09/2020 2:25 AM EST) Glucose 121 65 - 199 mg/dL [facility] Comment:Diabetes: >=200 mg/d L plus symptoms Blood Urea Nitrogen 33(H) 10 - 20 mg/dL [facility] Creatinine 0.79(L) 0.80 - 1.50 mg/dL [facility] Sodium 135 135 - 145 mmol/L [facility] Potassium 4.7 3.5 - 5.0 mmol/L [facility] Comment: Please note: ??Patients with WBC >100,000 may have falsely elevated Potassium levels. ??For accurate Potassium quantification in these patients send serum separator tube (gold top) for subsequent determinations. ??Contact the Clinical Chemistry Laboratory if there are any questions. Chloride 102 98 - 107 mmol/L [facility] Carbon Dioxide 23 22 - 31 mmol/L [facility] Anion Gap 10 5 - 15 mmol/L [facility] Calcium 8.7 8.5 - 10.5 mg/dL [facility] Est Glomerular Filtration Rate 103 >=60 mL/min/1. 73 m?? [facility] Comment: This patient? [...] In Lab Radha Bolden MD CHEMISTRY ORDERABLES [facility] [place] [address] * CT Abdomen & Pelvis w Contrast [...] gas, fluid, and stoolwhich could represent ileus/early [place]. 2. There is a trace amount of [...] below. Electronically signed by: Blayne Ferrara MD, [facility]([phone]), at 11/08/2020 11:04 AM Radha Bolden MD IMG CT ORDERABLES * (ABNORMAL) Differential, Automated (11/08/2020 1:35 AM EST) Neutrophil % 75.7 % [facility] Neutrophil Absolute 6.99(H) 1.70 - 6.10 x10(3)/mc L [facility] Lymph % 11.9 % [facility] Lymphocytes Abs 1.1 0.9 - 3.2 x10(3)/mc L [facility] Monocyte % 9.3 % [facility] Monocyte Abs 0.9 0.3 - 0.9 x10(3)/[facility] Eos % 2.2 % [facility] Eosinophils Abs 0.2 0.0 - 0.4 x10(3)/[facility] Basophil % 0.3 % [facility] Baso Absolute 0.0 0.0 - 0.1 x10(3)/[facility] Immature Gran % 0.60 % [facility] Comment: Immature granulocytes(IG's)percentage and absolute count will include metamyelocytes, myelocytes, and promyelocytes. Blood smears from CBCs yielding IG's will be scanned manually for concordance. If this scan disagrees with the automated IG or if promyelocytes are noted, a manual differential will be performed. Immature Gran Absolute 0.06(H) 0.00 - 0.04 x10(3)/[facility] Blood specimen (specimen) 11/08/2020 1:35 AM EST 11/08/2020 1:56 AM EST Narrative Resulting Agency Comment Spec In Lab Norberto Gonzalez MD HEMATOLOGY ORDERABLE S Performing Organization Address City/State/[facility] Co de Phone Number [facility] [place] [address] * (ABNORMAL) Hemogram (11/08/2020 1:35 AM EST) White Blood Cell 9.2 4.0 - 9.5 x10(3)/[facility] Red Blood Cell 3.24(L) 4.58 - 5.54 x10(6)/[facility] Hemoglobin 9.9(L) 13.7 - 16.5 gm/dL [facility] Hematocrit 29.8(L) 40.5 - 48.5 % [facility] Mean Cell Volume 92.0 82.9 - 93.1 fL [facility] Mean Cell Hemoglobin 30.6 27.5 - 32.1 pg [facility] Mean Cell Hemoglobin Concentration 33.2 32.0 - 35.7 gm/dL [facility] Platelet 310 145 - 357 x10(3)/mc L [facility] RDW Standard Deviation 41.0 36.0 - 45.0 fL [facility] RDW coefficient of variation 12.1 11.4 - 13.8 % [facility] Mean Platelet Volume 10.6 7.6 - 12.9 fL [facility] NRBC% auto 0.0 % [facility] NRBC Absolute 0.000 0.000 - 0.000 x10(3)/mc L [facility] Blood specimen (specimen) 11/08/2020 1:35 AM EST 11/08/2020 1:56 AM EST Narrative Resulting Agency Comment Spec In Lab Norberto Gonzalez MD HEMATOLOGY ORDERABLE S [facility] [place] [address] * (ABNORMAL) Phosphorus (11/08/2020 1:35 AM EST) Phosphorus 4.8(H) 2.5 - 4.5 mg/dL [facility] Blood specimen (specimen) 11/08/2020 1:35 AM EST 11/08/2020 1:55 AM EST Narrative Resulting Agency Comment Spec In Lab Radha Bolden MD CHEMISTRY ORDERABLES [facility] [place] [address] * Magnesium (11/08/2020 1:35 AM EST) Magnesium 0.94 0.69 - 1.07 mmol/L [facility] Blood specimen (specimen) 11/08/2020 1:35 AM EST 11/08/2020 1:55 AM EST Narrative Resulting Agency Comment Spec In Lab Radha Bolden MD CHEMISTRY ORDERABLES [facility] [place] [address] * (ABNORMAL) Basic Metabolic Panel (non-fasting) (11/08/2020 1:35 AM EST) Glucose 123 65 - 199 mg/dL [facility] Comment:Diabetes: >=200 mg/d L plus symptoms Blood Urea Nitrogen 30(H) 10 - 20 mg/dL [facility] Creatinine 0.83 0.80 - 1.50 mg/dL [facility] Sodium 136 135 - 145 mmol/L [facility] Potassium 4.7 3.5 - 5.0 mmol/L [facility] Comment: Please note: ??Patients with WBC >100,000 may have falsely elevated Potassium levels. ??For accurate Potassium quantification in these patients send serum separator tube (gold top) for subsequent determinations. ??Contact the Clinical Chemistry Laboratory if there are any questions. Chloride 99 98 - 107 mmol/L [facility] Carbon Dioxide 27 22 - 31 mmol/L [facility] Anion Gap 10 5 - 15 mmol/L [facility] Calcium 8.6 8.5 - 10.5 mg/dL [facility] Est Glomerular Filtration Rate 100 >=60 mL/min/1. 73 m?? [facility] Comment: This patient? [...] In Lab Radha Bolden MD CHEMISTRY ORDERABLES [facility] [place] [address] * XR Abdomen 1 view (Generic) (11/07/2020 [...] ? Electronically signed by: Usha Liriano MD, [facility] ([phone]), at 11/07/2020 11:41 AM Narrative 11/07/2020 11:41 [...] below. Electronically signed by: Usha Liriano MD, [facility]([phone]), at 11/07/2020 11:41 AM Radha Bolden MD IMG DX ORDERABLES * EKG 12 Lead (11/06/2020 1:04 PM EST) Ventricular rate 64 BPM MUSE SYSTEM Atrial Rate 64 BPM MUSE SYSTEM P-R Interval 138 ms MUSE SYSTEM QRS Duration 98 ms MUSE SYSTEM Q-T Interval 398 ms MUSE SYSTEM QTC Calculated (Bezet) 410 ms MUSE SYSTEM Calculated P Dyer 71 degrees MUSE SYSTEM Calculated R Dyer 64 degrees MUSE SYSTEM Calculated T Dyer 19 degrees MUSE SYSTEM INTERPRETATION Normal sinus rhythm Normal ECG No previous ECGs available Confirmed by Monica Staley ([id number]) on 11/06/2020 1:52:38 PM MUSE SYSTEM 11/06/2020 1:04 PM EST 11/06/2020 1:52 PM EST Radha Bolden MD ECG ORDERABLES MUSE SYSTEM * (ABNORMAL) Differential, Automated (11/06/2020 4:40 AM EST) Pathologist [facility] Neutrophil % 77.4 % [facility] Neutrophil Absolute 8.71(H) 1.70 - 6.10 x10(3)/ L [facility] Lymph % 11.8 % [facility] Lymphocytes Abs 1.3 0.9 - 3.2 x10(3)/ L [facility] Monocyte % 8.8 % [facility] Monocyte Abs 1.0(H) 0.3 - 0.9 x10(3)/[facility] Eos % 1.3 % [facility] Eosinophils Abs 0.2 0.0 - 0.4 x10(3)/[facility] Basophil % 0.3 % [facility] Baso Absolute 0.0 0.0 - 0.1 x10(3)/[facility] Immature Gran % 0.40 % [facility] Comment: Immature granulocytes(IG's)percentage and absolute count will include metamyelocytes, myelocytes, and promyelocytes. Blood smears from CBCs yielding IG's will be scanned manually for concordance. If this scan disagrees with the automated IG or if promyelocytes are noted, a manual differential will be performed. Immature Gran Absolute 0.05(H) 0.00 - 0.04 x10(3)/[facility] Blood specimen (specimen) 11/06/2020 4:40 AM EST 11/06/2020 4:45 AM EST Narrative Resulting Agency Comment Spec In Lab Norberto Gonzalez MD HEMATOLOGY ORDERABLE S [facility] [place] [address] * (ABNORMAL) Hemogram (11/06/2020 4:40 AM EST) White Blood Cell 11.3(H) 4.0 - 9.5 x10(3)/[facility] Red Blood Cell 3.25(L) 4.58 - 5.54 x10(6)/[facility] Hemoglobin 10.0(L) 13.7 - 16.5 gm/dL [facility] Hematocrit 30.2(L) 40.5 - 48.5 % [facility] Mean Cell Volume 92.9 82.9 - 93.1 fL [facility] Mean Cell Hemoglobin 30.8 27.5 - 32.1 pg [facility] Mean Cell Hemoglobin Concentration 33.1 32.0 - 35.7 gm/dL [facility] Platelet 255 145 - 357 x10(3)/mc L [facility] RDW Standard Deviation 41.5 36.0 - 45.0 fL [facility] RDW coefficient of variation 12.1 11.4 - 13.8 % [facility] Mean Platelet Volume 10.5 7.6 - 12.9 [facility] NRBC% auto 0.0 % [facility] NRBC Absolute 0.000 0.000 - 0.000 x10(3)/mc L [facility] Blood specimen (specimen) 11/06/2020 4:40 AM EST 11/06/2020 4:45 AM EST Narrative Resulting Agency Comment Spec In Lab Norberto Gonzalez MD HEMATOLOGY ORDERABLE S Performing Organization Address City/[facility]/ZIP Co de Phone Number [facility] [place] [address] * Phosphorus (11/06/2020 4:40 AM EST) Phosphorus 3.9 2.5 - 4.5 mg/dL [facility] Blood specimen (specimen) 11/06/2020 4:40 AM EST 11/06/2020 4:45 AM EST Narrative Resulting Agency Comment Spec In Lab Radha Bolden MD CHEMISTRY ORDERABLES Performing Organization Address City/[facility]/ZIP Co de Phone Number [facility] [place] [address] * Magnesium (11/06/2020 4:40 AM EST) Magnesium 0.86 0.69 - 1.07 mmol/L [facility] Blood specimen (specimen) 11/06/2020 4:40 AM EST 11/06/2020 4:45 AM EST Narrative Resulting Agency Comment Spec In Lab Radha Bolden MD CHEMISTRY ORDERABLES [facility] [place] [address] * (ABNORMAL) Basic Metabolic Panel (non-fasting) (11/06/2020 4:40 AM EST) Glucose 106 65 - 199 mg/dL [facility] Comment:Diabetes: >=200 mg/d L plus symptoms Blood Urea Nitrogen 25(H) 10 - 20 mg/dL [facility] Creatinine 0.75(L) 0.80 - 1.50 mg/dL [facility] Sodium 134(L) 135 - 145 mmol/L [facility] Potassium 4.6 3.5 - 5.0 mmol/L [facility] Comment: Please note: ??Patients with WBC >100,000 may have falsely elevated Potassium levels. ??For accurate Potassium quantification in these patients send serum separator tube (gold top) for subsequent determinations. ??Contact the Clinical Chemistry Laboratory if there are any questions. Chloride 101 98 - 107 mmol/L [facility] Carbon Dioxide 25 22 - 31 mmol/L [facility] Anion Gap 8 5 - 15 mmol/L [facility] Calcium 8.2(L) 8.5 - 10.5 mg/dL [facility] Est Glomerular Filtration Rate 105 >=60 mL/min/1. 73 m?? [facility] Comment: This patient? [...] In Lab Radha Bolden MD CHEMISTRY ORDERABLES [facility] [place] [address] * XR Chest One View (11/05/2020 11:54 [...] 4:12 AM EST) Neutrophil % 72.8 % [facility] Neutrophil Absolute 6.97(H) 1.70 - 6.10 x10(3)/mc L [facility] Lymph % 14.7 % [facility] Lymphocytes Abs 1.4 0.9 - 3.2 x10(3)/mc L [facility] Monocyte % 9.8 % [facility] Monocyte Abs 0.9 0.3 - 0.9 x10(3)/mc L [facility] Eos % 1.9 % [facility] Eosinophils Abs 0.2 0.0 - 0.4 x10(3)/mc L [facility] Basophil % 0.2 % [facility] Baso Absolute 0.0 0.0 - 0.1 x10(3)/mc L [facility] Immature Gran % 0.60 % [facility] Comment: Immature granulocytes(IG's)percentage and absolute count will include metamyelocytes, myelocytes, and promyelocytes. Blood smears from CBCs yielding IG's will be scanned manually for concordance. If this scan disagrees with the automated IG or if promyelocytes are noted, a manual differential will be performed. Immature Gran Absolute 0.06(H) 0.00 - 0.04 x10(3)/mc L [facility] Blood specimen (specimen) 11/05/2020 4:12 AM EST 11/05/2020 4:18 AM EST Narrative Resulting Agency Comment Spec In Lab Noble Rodriguez MD HEMATOLOGY ORDERABLE S Performing Organization Address City/State/[facility] Co de Phone Number [facility] [place] [address] * (ABNORMAL) Hemogram (11/05/2020 4:12 AM EST) White Blood Cell 9.6(H) 4.0 - 9.5 x10(3)/mc L [facility] Red Blood Cell 3.41(L) 4.58 - 5.54 x10(6)/mc L [facility] Hemoglobin 10.5(L) 13.7 - 16.5 gm/dL [facility] Hematocrit 30.9(L) 40.5 - 48.5 % [facility] Mean Cell Volume 90.6 82.9 - 93.1 fL [facility] Mean Cell Hemoglobin 30.8 27.5 - 32.1 pg [facility] Mean Cell Hemoglobin Concentration 34.0 32.0 - 35.7 gm/dL [facility] Platelet 262 145 - 357 x10(3)/mc L [facility] RDW Standard Deviation 40.6 36.0 - 45.0 fL [facility] RDW coefficient of variation 12.4 11.4 - 13.8 % [facility] Mean Platelet Volume 10.5 7.6 - 12.9 fL [facility] NRBC% auto 0.0 % [facility] NRBC Absolute 0.000 0.000 - 0.000 x10(3)/mc L [facility] Blood specimen (specimen) 11/05/2020 4:12 AM EST 11/05/2020 4:18 AM EST Narrative Resulting Agency Comment Spec In Lab Noble Rodriguez MD HEMATOLOGY ORDERABLE S Performing Organization Address City/[facility]/ZIP Co de Phone Number [facility] [place] [address] * Phosphorus (11/05/2020 4:12 AM EST) Phosphorus 3.1 2.5 - 4.5 mg/dL [facility] Blood specimen (specimen) 11/05/2020 4:12 AM EST 11/05/2020 4:18 AM EST Narrative Resulting Agency Comment Spec In Lab Radha Bolden MD CHEMISTRY ORDERABLES Performing Organization Address City/[facility] Co de Phone Number [facility] [place] [address] * Magnesium (11/05/2020 4:12 AM EST) Magnesium 0.76 0.69 - 1.07 mmol/L [facility] Blood specimen (specimen) 11/05/2020 4:12 AM EST 11/05/2020 4:18 AM EST Narrative Resulting Agency Comment Spec In Lab Radha Bolden MD CHEMISTRY ORDERABLES Performing Organization Address City/[facility]/ZIP Co de Phone Number [facility] [place] [address] * (ABNORMAL) Basic Metabolic Panel (non-fasting) (11/05/2020 4:12 AM EST) Glucose 102 65 - 199 mg/dL [facility] Comment:Diabetes: >=200 mg/d L plus symptoms Blood Urea Nitrogen 18 10 - 20 mg/dL [facility] Creatinine 0.75(L) 0.80 - 1.50 mg/dL [facility] Sodium 134(L) 135 - 145 mmol/L [facility] Potassium 4.3 3.5 - 5.0 mmol/L [facility] Comment: Please note: ??Patients with WBC >100,000 may have falsely elevated Potassium levels. ??For accurate Potassium quantification in these patients send serum separator tube (gold top) for subsequent determinations. ??Contact the Clinical Chemistry Laboratory if there are any questions. Chloride 102 98 - 107 mmol/L [facility] Carbon Dioxide 23 22 - 31 mmol/L [facility] Anion Gap 9 5 - 15 mmol/L [facility] Calcium 8.2(L) 8.5 - 10.5 mg/dL [facility] Est Glomerular Filtration Rate 105 >=60 mL/min/1. 73 m?? [facility] Comment: This patient? [...] In Lab Radha Bolden MD CHEMISTRY ORDERABLES [facility] [place] [address] * SCAN DOC: IMPLANTABLE DEVICES (11/05/2020 12:00 AM EST) Narrative 11/05/2020 12:00 AM EST Ordered by an unspecified provider. Scanning Provider MEDIA MGR SCAN EXT O RDR/RSLT * Differential, Automated (11/04/2020 2:30 AM EST) Neutrophil % 72.7 % [facility] Neutrophil Absolute 5.18 1.70 - 6.10 x10(3)/[facility] Lymph % 13.0 % [facility] Lymphocytes Abs 0.9 0.9 - 3.2 x10(3)/[facility] Monocyte % 10.2 % [facility] Monocyte Abs 0.7 0.3 - 0.9 x10(3)/[facility] Eos % 3.4 % [facility] Eosinophils Abs 0.2 0.0 - 0.4 x10(3)/[facility] Basophil % 0.3 % [facility] Baso Absolute 0.0 0.0 - 0.1 x10(3)/[facility] Immature Gran % 0.40 % [facility] Comment: Immature granulocytes(IG's)percentage and absolute count will include metamyelocytes, myelocytes, and promyelocytes. Blood smears from CBCs yielding IG's will be scanned manually for concordance. If this scan disagrees with the automated IG or if promyelocytes are noted, a manual differential will be performed. Immature Gran Absolute 0.03 0.00 - 0.04 x10(3)/[facility] Blood specimen (specimen) 11/04/2020 2:30 AM EST 11/04/2020 2:37 AM EST Narrative Resulting Agency Comment Spec In Lab Noble Rodriguez MD HEMATOLOGY ORDERABLE S [facility] [place] [address] * (ABNORMAL) Hemogram (11/04/2020 2:30 AM EST) [facility] White Blood Cell 7.1 4.0 - 9.5 x10(3)/ L [facility] Red Blood Cell 3.37(L) 4.58 - 5.54 x10(6)/ L [facility] Hemoglobin 10.2(L) 13.7 - 16.5 gm/dL [facility] Hematocrit 30.5(L) 40.5 - 48.5 % [facility] Mean Cell Volume 90.5 82.9 - 93.1 fL [facility] Mean Cell Hemoglobin 30.3 27.5 - 32.1 pg [facility] Mean Cell Hemoglobin Concentration 33.4 32.0 - 35.7 gm/dL [facility] Platelet 234 145 - 357 x10(3)/[facility] RDW Standard Deviation 40.3 36.0 - 45.0 [facility] RDW coefficient of variation 12.1 11.4 - 13.8 % [facility] Mean Platelet Volume 10.6 7.6 - 12.9 fL [facility] NRBC% auto 0.0 % [facility] NRBC Absolute 0.000 0.000 - 0.000 x10(3)/[facility] Blood specimen (specimen) 11/04/2020 2:30 AM EST 11/04/2020 2:37 AM EST Narrative Resulting Agency Comment Spec In Lab Noble Rodriguez MD HEMATOLOGY ORDERABLE S [facility] [place] [address] * Phosphorus (11/04/2020 2:30 AM EST) Pathologist [facility] Phosphorus 2.7 2.5 - 4.5 mg/dL [facility] Blood specimen (specimen) 11/04/2020 2:30 AM EST 11/04/2020 2:37 AM EST Narrative Resulting Agency Comment Spec In Lab Radha Bolden MD CHEMISTRY ORDERABLES Performing Organization Address [facility] Co de Phone Number [facility] [place] [address] * Magnesium (11/04/2020 2:30 AM EST) Pathologist [facility] Magnesium 0.78 0.69 - 1.07 mmol/L [facility] Blood specimen (specimen) 11/04/2020 2:30 AM EST 11/04/2020 2:37 AM EST Narrative Resulting Agency Comment Spec In Lab Radha Bolden MD CHEMISTRY ORDERABLES Performing Organization Address [facility] Co de Phone Number [facility] [place] [address] * (ABNORMAL) Basic Metabolic Panel (non-fasting) (11/04/2020 2:30 AM EST) Pathologist [facility] Glucose 137 65 - 199 mg/dL [facility] Comment:Diabetes: >=200 mg/d L plus symptoms Blood Urea Nitrogen 20 10 - 20 mg/dL [facility] Creatinine 0.72(L) 0.80 - 1.50 mg/dL [facility] Sodium 137 135 - 145 mmol/L [facility] Potassium 4.0 3.5 - 5.0 mmol/L [facility] Comment: Please note: ??Patients with WBC >100,000 may have falsely elevated Potassium levels. ??For accurate Potassium quantification in these patients send serum separator tube (gold top) for subsequent determinations. ??Contact the Clinical Chemistry Laboratory if there are any questions. Chloride 104 98 - 107 mmol/L [facility] Carbon Dioxide 25 22 - 31 mmol/L [facility] Anion Gap 8 5 - 15 mmol/L [facility] Calcium 8.1(L) 8.5 - 10.5 mg/dL [facility] Est Glomerular Filtration Rate 107 >=60 mL/min/1. 73 m?? [facility] Comment: This patient? [...] Bolden MD CHEMISTRY ORDERABLES Performing Organization Address City/[facility]/ZIP Co de Phone Number [facility] [place] [address] * C. Difficile Screen (11/04/2020 12:42 AM EST) C Diff Interp Negative Negative [facility] Comment: Ag/Tox Neg C. diff?? [...] - GENER AL ORDERABLES Performing Organization Address City/[facility]/ZIP Co de Phone Number [facility] [place] [address] * XR Abdomen 1 view (Generic) (11/03/2020 12:37 PM EST) Anatomical Region Laterality Modality Abdomen N/A Digital Radiogra phy Impressions 11/03/2020 1:08 PM EST Diffuse gaseous distention of the stomach, small and large bowel. Thank you for letting us participate in the care of this patient. For questions regarding this report, please contact the number below. ? Electronically signed by: Rohit Ross MD, [facility] ([phone]), at 11/03/2020 1:08 PM Narrative 11/03/2020 1:08 [...] below. Electronically signed by: Rohit Ross MD, [facility]([phone]), at 11/03/2020 1:08 PM Robyn Baker WAREHOUSE STOCK CLERK IMG DX ORDERABLES * Place PICC Line: Contact Vascular Access Page [phone] Extremity to exclude: No restrictions; Is PICC [...] to the planned procedure. Hand Hygiene: The junior brand manager did perform hand hygiene prior to line insertion. Catheter type: PICC Lot number: [id number] Procedure Technique: Skin was prepped with chlorhexidine. [...] ? Electronically signed by: Nallely Donato MD, [facility] ([phone]), at 11/03/2020 12:18 PM Narrative 11/03/2020 12:18 [...] below. Electronically signed by: Nallely Donato MD, [facility]([phone]), at 11/03/2020 12:18 PM Robyn Baker WAREHOUSE STOCK CLERK IMG FLUORO ORDERAB LES * Differential, Automated (11/03/2020 3:15 AM EST) Neutrophil % 70.1 % [facility] Neutrophil Absolute 4.87 1.70 - 6.10 x10(3)/[facility] Lymph % 14.6 % [facility] Lymphocytes Abs 1.0 0.9 - 3.2 x10(3)/[facility] Monocyte % 10.5 % [facility] Monocyte Abs 0.7 0.3 - 0.9 x10(3)/[facility] Eos % 3.9 % [facility] Eosinophils Abs 0.3 0.0 - 0.4 x10(3)/[facility] Basophil % 0.3 % [facility] Baso Absolute 0.0 0.0 - 0.1 x10(3)/[facility] Immature Gran % 0.60 % [facility] Comment: Immature granulocytes(IG's)percentage and absolute count will include metamyelocytes, myelocytes, and promyelocytes. Blood smears from CBCs yielding IG's will be scanned manually for concordance. If this scan disagrees with the automated IG or if promyelocytes are noted, a manual differential will be performed. Immature Gran Absolute 0.04 0.00 - 0.04 x10(3)/mcL [facility] Blood specimen (specimen) 11/03/2020 3:15 AM EST 11/03/2020 3:20 AM EST Narrative Resulting Agency Comment Spec In Lab Noble Rodriguez MD HEMATOLOGY ORDERABLE S [facility] [place] [address] * (ABNORMAL) Hemogram (11/03/2020 3:15 AM EST) White Blood Cell 6.9 4.0 - 9.5 x10(3)/mc L [facility] Red Blood Cell 3.61(L) 4.58 - 5.54 x10(6)/mc L [facility] Hemoglobin 11.1(L) 13.7 - 16.5 gm/dL [facility] Hematocrit 32.1(L) 40.5 - 48.5 % [facility] Mean Cell Volume 88.9 82.9 - 93.1 fL [facility] Mean Cell Hemoglobin 30.7 27.5 - 32.1 pg [facility] Mean Cell Hemoglobin Concentration 34.6 32.0 - 35.7 gm/dL [facility] Platelet 205 145 - 357 x10(3)/mc L [facility] RDW Standard Deviation 39.2 36.0 - 45.0 fL [facility] RDW coefficient of variation 12.0 11.4 - 13.8 % [facility] Mean Platelet Volume 10.6 7.6 - 12.9 fL [facility] NRBC% auto 0.0 % [facility] NRBC Absolute 0.000 0.000 - 0.000 x10(3)/mc L [facility] Blood specimen (specimen) 11/03/2020 3:15 AM EST 11/03/2020 3:20 AM EST Narrative Resulting Agency Comment Spec In Lab Noble Rodriguez MD HEMATOLOGY ORDERABLE S Performing Organization Address [facility]/ZIP Co de Phone Number [facility] [place] [address] * Phosphorus (11/03/2020 3:15 AM EST) Phosphorus 3.1 2.5 - 4.5 mg/dL [facility] Blood specimen (specimen) 11/03/2020 3:15 AM EST 11/03/2020 3:20 AM EST Narrative Resulting Agency Comment Spec In Lab Radha Bolden MD CHEMISTRY ORDERABLES Performing Organization Address [facility] Co de Phone Number [facility] [place] [address] * Magnesium (11/03/2020 3:15 AM EST) Magnesium 0.82 0.69 - 1.07 mmol/L [facility] Blood specimen (specimen) 11/03/2020 3:15 AM EST 11/03/2020 3:20 AM EST Narrative Resulting Agency Comment Spec In Lab Radha Bolden MD CHEMISTRY ORDERABLES Performing Organization Address [facility] Co de Phone Number [facility] [place] [address] * (ABNORMAL) Basic Metabolic Panel (non-fasting) (11/03/2020 3:15 AM EST) Glucose 85 65 - 199 mg/dL [facility] Comment:Diabetes: >=200 mg/d L plus symptoms Blood Urea Nitrogen 22(H) 10 - 20 mg/dL [facility] Creatinine 0.76(L) 0.80 - 1.50 mg/dL [facility] Sodium 137 135 - 145 mmol/L [facility] Potassium 4.1 3.5 - 5.0 mmol/L [facility] Comment: Please note: ??Patients with WBC >100,000 may have falsely elevated Potassium levels. ??For accurate Potassium quantification in these patients send serum separator tube (gold top) for subsequent determinations. ??Contact the Clinical Chemistry Laboratory if there are any questions. Chloride 103 98 - 107 mmol/L [facility] Carbon Dioxide 22 22 - 31 mmol/L [facility] Anion Gap 12 5 - 15 mmol/L [facility] Calcium 8.2(L) 8.5 - 10.5 mg/dL [facility] Est Glomerular Filtration Rate 104 >=60 mL/min/1. 73 m?? [facility] Comment: This patient? [...] In Lab Radha Bolden MD CHEMISTRY ORDERABLES [facility] [place] [address] * XR Chest One View (11/02/2020 6:10 PM EST) Anatomical Region Laterality Modality Chest N/A Digital Radiogra phy Impressions 11/02/2020 6:40 PM EST No acute cardiopulmonary abnormality. Thank you for letting us participate in the care of this patient. For questions regarding this report, please contact the number below. ? Electronically signed by: Caleb Branch MD, [facility] ([phone]), at 11/02/2020 6:40 PM Narrative 11/02/2020 6:40 [...] below. Electronically signed by: Caleb Branch MD, [facility]([phone]), at 11/02/2020 6:40 PM Gaurav Shoemaker MD IMG DX ORDERABLES * (ABNORMAL) Differential, Automated (11/02/2020 3:52 AM EST) Neutrophil % 63.2 % [facility] Neutrophil Absolute 4.39 1.70 - 6.10 x10(3)/[facility] Lymph % 19.4 % [facility] Lymphocytes Abs 1.4 0.9 - 3.2 x10(3)/[facility] Monocyte % 13.9 % [facility] Monocyte Abs 1.0(H) 0.3 - 0.9 x10(3)/[facility] Eos % 2.7 % [facility] Eosinophils Abs 0.2 0.0 - 0.4 x10(3)/[facility] Basophil % 0.4 % [facility] Baso Absolute 0.0 0.0 - 0.1 x10(3)/[facility] Immature Gran % 0.40 % [facility] Comment: Immature granulocytes(IG's)percentage and absolute count will include metamyelocytes, myelocytes, and promyelocytes. Blood smears from CBCs yielding IG's will be scanned manually for concordance. If this scan disagrees with the automated IG or if promyelocytes are noted, a manual differential will be performed. Immature Gran Absolute 0.03 0.00 - 0.04 x10(3)/[facility] Blood specimen (specimen) 11/02/2020 3:52 AM EST 11/02/2020 4:01 AM EST Narrative Resulting Agency Comment Spec In Lab Noble Rodriguez MD HEMATOLOGY ORDERABLE S [facility] [place] [address] * (ABNORMAL) Hemogram (11/02/2020 3:52 AM EST) White Blood Cell 7.0 4.0 - 9.5 x10(3)/[facility] Red Blood Cell 3.39(L) 4.58 - 5.54 x10(6)/mc L [facility] Hemoglobin 10.3(L) 13.7 - 16.5 gm/dL [facility] Hematocrit 30.4(L) 40.5 - 48.5 % [facility] Mean Cell Volume 89.7 82.9 - 93.1 fL [facility] Mean Cell Hemoglobin 30.4 27.5 - 32.1 pg [facility] Mean Cell Hemoglobin Concentration 33.9 32.0 - 35.7 gm/dL [facility] Platelet 188 145 - 357 x10(3)/mc L [facility] RDW Standard Deviation 39.9 36.0 - 45.0 [facility] RDW coefficient of variation 12.2 11.4 - 13.8 % [facility] Mean Platelet Volume 10.6 7.6 - 12.9 fL [facility] NRBC% auto 0.0 % [facility] NRBC Absolute 0.000 0.000 - 0.000 x10(3)/mc L [facility] Blood specimen (specimen) 11/02/2020 3:52 AM EST 11/02/2020 4:01 AM EST Narrative Resulting Agency Comment Spec In Lab Noble Rodriguez MD HEMATOLOGY ORDERABLE S Performing Organization Address City/[facility]/ZIP Co de Phone Number [facility] [place] [address] * Phosphorus (11/02/2020 3:52 AM EST) Phosphorus 4.0 2.5 - 4.5 mg/dL [facility] Blood specimen (specimen) 11/02/2020 3:52 AM EST 11/02/2020 4:01 AM EST Narrative Resulting Agency Comment Spec In Lab Radha Bolden MD CHEMISTRY ORDERABLES Performing Organization Address City/[facility]/ZIP Co de Phone Number [facility] [place] [address] * Magnesium (11/02/2020 3:52 AM EST) Magnesium 0.82 0.69 - 1.07 mmol/L [facility] Blood specimen (specimen) 11/02/2020 3:52 AM EST 11/02/2020 4:01 AM EST Narrative Resulting Agency Comment Spec In Lab Radha Bolden MD CHEMISTRY ORDERABLES [facility] [place] [address] * (ABNORMAL) Basic Metabolic Panel (non-fasting) (11/02/2020 3:52 AM EST) Glucose 89 65 - 199 mg/dL [facility] Comment:Diabetes: >=200 mg/d L plus symptoms Blood Urea Nitrogen 24(H) 10 - 20 mg/dL [facility] Creatinine 0.83 0.80 - 1.50 mg/dL [facility] Sodium 136 135 - 145 mmol/L [facility] Potassium 4.4 3.5 - 5.0 mmol/L [facility] Comment: Please note: ??Patients with WBC >100,000 may have falsely elevated Potassium levels. ??For accurate Potassium quantification in these patients send serum separator tube (gold top) for subsequent determinations. ??Contact the Clinical Chemistry Laboratory if there are any questions. Chloride 103 98 - 107 mmol/L [facility] Carbon Dioxide 21(L) 22 - 31 mmol/L [facility] Anion Gap 12 5 - 15 mmol/L [facility] Calcium 8.2(L) 8.5 - 10.5 mg/dL [facility] Est Glomerular Filtration Rate 100 >=60 mL/min/1. 73 m?? [facility] Comment: This patient? [...] In Lab Radha Bolden MD CHEMISTRY ORDERABLES [facility] [place] [address] * XR Abdomen 1 view (Generic) (11/01/2020 [...] below. Electronically signed by: Killian Bob MD, [facility]([phone]), at 11/01/2020 4:03 PM Gaurav Shoemaker MD [...] ? Electronically signed by: Lili Burgos MD, [facility] ([phone]), at 11/01/2020 4:19 PM Narrative 11/01/2020 4:19 PM EST EXAMINATION: XR CHEST ONE VIEW CLINICAL HISTORY: febrile, tachycardic, TECHNIQUE: 1 view of the chest COMPARISON: Chest radiograph 10/30/2020 FINDINGS: Enteric tube seen along the course of the esophagus with distal tip outside the [id number] beyond the GE junction. Partially visualized cervical [...] of the esophagus with distal tipoutside the [id number] beyond the GE junction. Partially visualized cervicalfusion [...] RBC, Urine 12(H) 0 - 3 /HPF [facility] WBC, Urine 4(H) 0 - 3 /HPF [facility] Bacteria, Urine Few(A) None /HPF [facility] Transitional Epithelial Cells, Urine <1 <=1 /HPF [facility] Uric Acid Crystal, Urine Occasiona l(A) None /HPF [facility] Urine specimen obtained via indwelling urinary catheter (specimen) 11/01/2020 10:30 AM EST 11/01/2020 10:39 AM EST Narrative Resulting Agency Comment Spec In Lab Bhumi Corley MD URINE ORDERABLES [facility] [place] [address] * (ABNORMAL) Urinalysis with reflex Culture (11/01/2020 10:30 AM EST) Glucose, Urine Dipstick Negative Negative mg/dL [facility] Protein, Urine Dipstick 30(A) Negative mg/dL [facility] Bilirubin, Urine Dipstick Negative Negative mg/dL [facility] Comment: Clinical correlation required for positive Urine Bilirubin results as false positive may occur with some drugs and drug related products. If a false positive is suspected a serum total bilirubin should be considered if clinically indicated. Urobilinogen, Urine Dipstick Normal Normal mg/dL [facility] pH, Urn (dipstick) 6.0 5.0 - 8.0 [facility] Blood, Urine Dipstick Moderate(A) Negative mg/dL [facility] Ketone, Urine Dipstick 15(A) Negative mg/dL [facility] Nitrite, Urine Dipstick Negative Negative [facility] Leukocytes, Urine Dipstick Negative Negative [facility] Appearance, Urine Dipstick Clear Clear [facility] Specific [place] Urine Automated >=1.030(A) 1.006 - 1.030 [facility] Color, Urine Dipstick Yellow Yellow [facility] Reflex to Culture No [facility] Urine specimen obtained via indwelling urinary catheter (specimen) 11/01/2020 10:30 AM EST 11/01/2020 10:39 AM EST Narrative Resulting Agency Comment Spec In Lab Gaurav Shoemaker MD URINE ORDERABLES Performing Organization Address [facility] de Phone Number [facility] [place] [address] * Blood culture (11/01/2020 5:56 AM EST) Blood Culture No growth at 5 days. [facility] Blood specimen (specimen) 11/01/2020 5:56 AM EST 11/01/2020 7:38 AM EST Narrative Resulting Agency Comment Spec In Lab Gaurav Shoemaker MD MICROBIOLOGY - BLOOD ORDERABLES Performing Organization Address [facility] de Phone Number [facility] [place] [address] * (ABNORMAL) Comprehensive metabolic panel (non-fasting) (11/01/2020 5:47 AM EST) Glucose Not Perf 65 - 199 [facility] Comment: Duplicate order Diabetes: >=200 mg/dL plus symptoms Blood Urea Nitrogen Not Perf 10 - 20 [facility] Comment:Duplicate order Creatinine Not Perf 0.80 - 1.50 [facility] Comment:Duplicate order Sodium Not Perf 135 - 145 [facility] Comment:Duplicate order Potassium Not Perf 3.5 - 5.0 [facility] Comment: Duplicate order Please note: ??Patients with WBC >100,000 may have falsely elevated Potassium levels. ??For accurate Potassium quantification in these patients send serum separator tube (gold top) for subsequent determinations. ??Contact the Clinical Chemistry Laboratory if there are any questions. Chloride Not Perf 98 - 107 [facility] Comment:Duplicate order Carbon Dioxide Not Perf 22 - 31 [facility] Comment:Duplicate order Anion Gap Not Calculated 5 - 15 mmol/L [facility] Comment:Duplicate order Calcium Not Perf 8.5 - 10.5 [facility] Comment:Duplicate order Protein, Total 5.6(L) 6.1 - 8.0 gm/dL [facility] Albumin 2.8(L) 3.2 - 5.2 gm/dL [facility] Aspartate Aminotransferase 36 0 - 39 unit/L [facility] Alanine Aminotransferase 32 0 - 55 unit/L [facility] Alkaline Phosphatase 58 40 - 130 unit/L [facility] Bilirubin, Total 0.4 0.2 - 1.3 mg/dL [facility] Est Glomerular Filtration Rate Not Calculated >=60 [facility] Comment:Duplicate order Blood specimen (specimen) 11/01/2020 5:47 AM EST 11/01/2020 6:06 AM EST Narrative Resulting Agency Comment Spec In Lab Gaurav Shoemaker MD CHEMISTRY ORDERABLES [facility] [place] [address] * Differential, Automated (11/01/2020 5:47 AM EST) Neutrophil % 67.7 % [facility] Neutrophil Absolute 4.41 1.70 - 6.10 x10(3)/mcL [facility] Lymph % 19.1 % [facility] Lymphocytes Abs 1.2 0.9 - 3.2 x10(3)/[facility] Monocyte % 12.6 % [facility] Monocyte Abs 0.8 0.3 - 0.9 x10(3)/[facility] Eos % 0.2 % [facility] Eosinophils Abs 0.0 0.0 - 0.4 x10(3)/[facility] Basophil % 0.2 % [facility] Baso Absolute 0.0 0.0 - 0.1 x10(3)/[facility] Immature Gran % 0.20 % [facility] Comment: Immature granulocytes(IG's)percentage and absolute count will include metamyelocytes, myelocytes, and promyelocytes. Blood smears from CBCs yielding IG's will be scanned manually for concordance. If this scan disagrees with the automated IG or if promyelocytes are noted, a manual differential will be performed. Immature Gran Absolute 0.01 0.00 - 0.04 x10(3)/[facility] Blood specimen (specimen) 11/01/2020 5:47 AM EST 11/01/2020 6:04 AM EST Narrative Resulting Agency Comment Spec In Lab Bhumi Corley MD HEMATOLOGY ORDERABLE S [facility] [place] [address] * (ABNORMAL) Hemogram (11/01/2020 5:47 AM EST) White Blood Cell 6.5 4.0 - 9.5 x10(3)/mc L [facility] Red Blood Cell 3.43(L) 4.58 - 5.54 x10(6)/mc L [facility] Hemoglobin 10.6(L) 13.7 - 16.5 gm/dL [facility] Hematocrit 30.9(L) 40.5 - 48.5 % [facility] Mean Cell Volume 90.1 82.9 - 93.1 fL [facility] Mean Cell Hemoglobin 30.9 27.5 - 32.1 pg [facility] Mean Cell Hemoglobin Concentration 34.3 32.0 - 35.7 gm/dL [facility] Platelet 185 145 - 357 x10(3)/mc L [facility] RDW Standard Deviation 39.7 36.0 - 45.0 [facility] RDW coefficient of variation 12.2 11.4 - 13.8 % [facility] Mean Platelet Volume 10.9 7.6 - 12.9 [facility] NRBC% auto 0.0 % [facility] NRBC Absolute 0.000 0.000 - 0.000 x10(3)/mc L [facility] Blood specimen (specimen) 11/01/2020 5:47 AM EST 11/01/2020 6:04 AM EST Narrative Resulting Agency Comment Spec In Lab Bhumi Corley MD HEMATOLOGY ORDERABLE S [facility] [place] [address] * (ABNORMAL) Basic Metabolic Panel (non-fasting) (11/01/2020 5:47 AM EST) Glucose 92 65 - 199 mg/dL [facility] Comment:Diabetes: >=200 mg/d L plus symptoms Blood Urea Nitrogen 19 10 - 20 mg/dL [facility] Creatinine 1.13 0.80 - 1.50 mg/dL [facility] Sodium 132(L) 135 - 145 mmol/L [facility] Potassium 3.7 3.5 - 5.0 mmol/L [facility] Comment: Please note: ??Patients with WBC >100,000 may have falsely elevated Potassium levels. ??For accurate Potassium quantification in these patients send serum separator tube (gold top) for subsequent determinations. ??Contact the Clinical Chemistry Laboratory if there are any questions. Chloride 101 98 - 107 mmol/L [facility] Carbon Dioxide 21(L) 22 - 31 mmol/L [facility] Anion Gap 10 5 - 15 mmol/L [facility] Calcium 8.0(L) 8.5 - 10.5 mg/dL [facility] Est Glomerular Filtration Rate 74 >=60 mL/min/1. 73 m?? [facility] Comment: This patient? [...] In Lab Gaurav Shoemaker MD CHEMISTRY ORDERABLES [facility] [place] [address] * (ABNORMAL) Blood culture (11/01/2020 5:47 AM EST) Blood Culture Coagulase negative Staphylococcus species detected by PCR Interpretation of the importance of skin daphne such as Coagulase Negative Staph, Viridans Strep, Corynebacteria and other Gram Positive organisms from a single Blood Culture set requires clinical correlation. (A) [facility] Gram Stain Aerobic Growth detected in aerobic bottle. Gram Positive Cocci in clusters seen (A) [facility] Organism Coagulase negative Staphylococcus species(A) [facility] Organism Gram Positive Cocci in clusters(A) [facility] Blood specimen (specimen) STRUCTURE OF RIGHT HAND / Unknown 11/01/2020 5:47 AM EST 11/01/2020 7:40 AM EST Narrative Resulting Agency Comment Spec In Lab Gaurav Shoemaker MD MICROBIOLOGY - BLOOD ORDERABLES Performing Organization Address [facility] Phone Number [facility] [place] [address] * POCT Glucose (11/01/2020 5:23 AM EST) Glucose, POC 105 65 - 199 mg/dL [facility] Comment: Supplemental ranges: <140 mg/dL before meals <180 mg/dL all other times of the day Blood specimen (specimen) 11/01/2020 5:23 AM EST 11/01/2020 5:23 AM EST Gaurav Shoemaker MD POINT OF CARE TEST O RDERABLES Performing Organization Address [facility] Phone Number [facility] [place] [address] * Phosphorus (11/01/2020 3:55 AM EST) Phosphorus 2.9 2.5 - 4.5 mg/dL [facility] Blood specimen (specimen) 11/01/2020 3:55 AM EST 11/01/2020 4:23 AM EST Narrative Resulting Agency Comment Spec In Lab Radha Bolden MD CHEMISTRY ORDERABLES Performing Organization Address [facility] de Phone Number [facility] [place] [address] * Magnesium (11/01/2020 3:55 AM EST) Magnesium 0.79 0.69 - 1.07 mmol/L [facility] Blood specimen (specimen) 11/01/2020 3:55 AM EST 11/01/2020 4:23 AM EST Narrative Resulting Agency Comment Spec In Lab Radha Bolden MD CHEMISTRY ORDERABLES Performing Organization Address [facility] Phone Number [facility] [place] [address] * XR Fluoro Barium Swallow (Video Swallow [...] ? Electronically signed by: Lawrence Molina MD, [facility] ([phone]), at 10/31/2020 4:12 PM Narrative 10/31/2020 4:12 [...] Soft solid trigger was post piriform sinuses. [place] trigger is post piriform sinuses. With nectar [...] Soft solid trigger was post piriform sinuses. [place] trigger is post piriform sinuses. With nectar [...] below. Electronically signed by: Lawrence Molina MD, [facility]([phone]), at 10/31/2020 4:12 PM Gaurav Shoemaker MD IMG FLUORO ORDERABLE S * Differential, Automated (10/31/2020 12:42 AM EST) Neutrophil % 68.8 % [facility] Neutrophil Absolute 5.30 1.70 - 6.10 x10(3)/[facility] Lymph % 18.7 % [facility] Lymphocytes Abs 1.4 0.9 - 3.2 x10(3)/[facility] Monocyte % 9.9 % [facility] Monocyte Abs 0.8 0.3 - 0.9 x10(3)/[facility] Eos % 2.0 % [facility] Eosinophils Abs 0.2 0.0 - 0.4 x10(3)/[facility] Basophil % 0.3 % [facility] Baso Absolute 0.0 0.0 - 0.1 x10(3)/[facility] Immature Gran % 0.30 % [facility] Comment: Immature granulocytes(IG's)percentage and absolute count will include metamyelocytes, myelocytes, and promyelocytes. Blood smears from CBCs yielding IG's will be scanned manually for concordance. If this scan disagrees with the automated IG or if promyelocytes are noted, a manual differential will be performed. Immature Gran Absolute 0.02 0.00 - 0.04 x10(3)/mcL [facility] Blood specimen (specimen) 10/31/2020 12:42 AM EST 10/31/2020 1:02 AM EST Narrative Resulting Agency Comment Spec In Lab Alex Oropeza MD HEMATOLOGY ORDERABLE S [facility] [place] [address] * (ABNORMAL) Hemogram (10/31/2020 12:42 AM EST) White Blood Cell 7.7 4.0 - 9.5 x10(3)/mc L [facility] Red Blood Cell 3.00(L) 4.58 - 5.54 x10(6)/mc L [facility] Hemoglobin 9.4(L) 13.7 - 16.5 gm/dL [facility] Hematocrit 27.0(L) 40.5 - 48.5 % [facility] Mean Cell Volume 90.0 82.9 - 93.1 fL [facility] Mean Cell Hemoglobin 31.3 27.5 - 32.1 pg [facility] Mean Cell Hemoglobin Concentration 34.8 32.0 - 35.7 gm/dL [facility] Platelet 138(L) 145 - 357 x10(3)/mc L [facility] RDW Standard Deviation 39.6 36.0 - 45.0 fL [facility] RDW coefficient of variation 12.1 11.4 - 13.8 % [facility] Mean Platelet Volume 11.7 7.6 - 12.9 fL [facility] NRBC% auto 0.0 % [facility] NRBC Absolute 0.000 0.000 - 0.000 x10(3)/mc L [facility] Blood specimen (specimen) 10/31/2020 12:42 AM EST 10/31/2020 1:02 AM EST Narrative Resulting Agency Comment Spec In Lab Alex Oropeza MD HEMATOLOGY ORDERABLE S [facility] [place] [address] * (ABNORMAL) Basic Metabolic Panel (non-fasting) (10/31/2020 12:42 AM EST) Glucose 97 65 - 199 mg/dL [facility] Comment:Diabetes: >=200 mg/d L plus symptoms Blood Urea Nitrogen 15 10 - 20 mg/dL [facility] Creatinine 0.78(L) 0.80 - 1.50 mg/dL [facility] Sodium 135 135 - 145 mmol/L [facility] Potassium 3.8 3.5 - 5.0 mmol/L [facility] Comment: Please note: ??Patients with WBC >100,000 may have falsely elevated Potassium levels. ??For accurate Potassium quantification in these patients send serum separator tube (gold top) for subsequent determinations. ??Contact the Clinical Chemistry Laboratory if there are any questions. Chloride 105 98 - 107 mmol/L [facility] Carbon Dioxide 24 22 - 31 mmol/L [facility] Anion Gap 6 5 - 15 mmol/L [facility] Calcium 7.5(L) 8.5 - 10.5 mg/dL [facility] Est Glomerular Filtration Rate 103 >=60 mL/min/1. 73 m?? [facility] Comment: This patient? [...] Bolden MD CHEMISTRY ORDERABLES Performing Organization Address City/[facility] Co de Phone Number [facility] [place] [address] * (ABNORMAL) Phosphorus (10/31/2020 12:42 AM EST) Phosphorus 2.2(L) 2.5 - 4.5 mg/dL [facility] Blood specimen (specimen) 10/31/2020 12:42 AM EST 10/31/2020 1:02 AM EST Narrative Resulting Agency Comment Spec In Lab Radha Bolden MD CHEMISTRY ORDERABLES Performing Organization Address [facility] Co de Phone Number [facility] [place] [address] * Magnesium (10/31/2020 12:42 AM EST) Magnesium 0.72 0.69 - 1.07 mmol/L [facility] Blood specimen (specimen) 10/31/2020 12:42 AM EST 10/31/2020 1:02 AM EST Narrative Resulting Agency Comment Spec In Lab Radha Bolden MD CHEMISTRY ORDERABLES Performing Organization Address [facility] Co de Phone Number [facility] [place] [address] * POCT Glucose (10/30/2020 7:40 PM EST) Glucose, POC 95 65 - 199 mg/dL [facility] Comment: Supplemental ranges: <140 mg/dL before meals <180 mg/dL all other times of the day Blood specimen (specimen) 10/30/2020 7:40 PM EST 10/30/2020 7:40 PM EST Gaurav Shoemaker MD POINT OF CARE TEST O RDERABLES Performing Organization Address [facility] de Phone Number [facility] [place] [address] * Electrolytes panel (10/30/2020 6:15 PM EST) Sodium 135 135 - 145 mmol/L [facility] Potassium 4.1 3.5 - 5.0 mmol/L [facility] Comment: Please note: ??Patients with WBC >100,000 may have falsely elevated Potassium levels. ??For accurate Potassium quantification in these patients send serum separator tube (gold top) for subsequent determinations. ??Contact the Clinical Chemistry Laboratory if there are any questions. Chloride 104 98 - 107 mmol/L [facility] Carbon Dioxide 24 22 - 31 mmol/L [facility] Anion Gap 7 5 - 15 mmol/L [facility] Blood specimen (specimen) 10/30/2020 6:15 PM EST 10/30/2020 6:24 PM EST Narrative Resulting Agency Comment Spec In Lab Gaurav Shoemaker MD CHEMISTRY ORDERABLES Performing Organization Address [facility] de Phone Number [facility] [place] [address] * Osmolality (10/30/2020 4:55 PM EST) Osmolality 281 275 - 295 mOsm/kg [facility] Blood specimen (specimen) 10/30/2020 4:55 PM EST 10/30/2020 5:32 PM EST Narrative Resulting Agency Comment Spec In Lab Gaurav Shoemaker MD CHEMISTRY ORDERABLES Performing Organization Address [facility] Co de Phone Number [facility] [place] [address] * Osmolality, urine, random (10/30/2020 4:36 PM EST) Osmolality, Urine 991 50 - 1,200 mOsm/kg [facility] Urine specimen (specimen) 10/30/2020 4:36 PM EST 10/30/2020 5:49 PM EST Narrative Resulting Agency Comment Spec In Lab Guarav Shoemaker MD URINE ORDERABLES Performing Organization Address [facility] de Phone Number [facility] [place] [address] * Electrolytes, urine, random (10/30/2020 4:36 PM EST) Sodium, Urine 60 mmol/L [facility] Potassium, Urine 43 mmol/L [facility] Chloride, Urine 48 mmol/L [facility] Urine specimen (specimen) 10/30/2020 4:36 PM EST 10/30/2020 5:49 PM EST Narrative Resulting Agency Comment Spec In Lab Gaurav Shoemaker MD URINE ORDERABLES Performing Organization Address [facility] de Phone Number [facility] [place] [address] * XR Chest One View (10/30/2020 4:35 [...] ? Electronically signed by: Rajinder Lam MD, [facility] ([phone]), at 10/30/2020 5:22 PM Narrative 10/30/2020 5:22 [...] below. Electronically signed by: Rajinder Lam MD, [facility]([phone]), at 10/30/2020 5:22 PM Gaurav Shoemaker MD IMG DX ORDERABLES * (ABNORMAL) BLOOD GAS 2 ARTERIAL (10/30/2020 3:19 PM EST) pH, Arterial 7.43 7.35 - 7.45 [facility] PCO2, Arterial 36 35 - 45 mmHg [facility] PO2, Arterial 64(L) 85 - 104 mmHg [facility] Bicarbonate, Arterial 23.4 20.0 - 26.0 mmol/L [facility] Base Excess, Arterial -0.8 -3.0 - 3.0 mmol/L [facility] Hgb Blood Gas 10.8(L) 13.7 - 16.5 gm/dL [facility] Oxyhemoglobin, Arterial 91.0(L) 94.0 - 97.0 % [facility] Carboxyhemoglob in, Arterial 0.3 % [facility] Comment: Nonsmokers: 0.5-1.5% COHB Smokers: Variable, but usually less than 10% Toxic: 20-30% COHB Lethal: Greater than 60% COHB Methemoglobin, Arterial 0.6 <=1.5 % [facility] Na Whole Blood 132(L) 135 - 145 mmol/L [facility] K Whole Blood 3.5 3.5 - 5.0 mmol/L [facility] Comment: Please note: Patients with WBC >100,000 may have falsely elevated Potassium levels. Contact the Clinical Chemistry Laboratory if there are any questions. ICa Whole Blood 1.11(L) 1.15 - 1.33 mmol/L [facility] Comment: Note: ??Total bilirubin higher than 20 mg/dL may lead to falsely low ionized calcium. CL Whole Blood 103 98 - 107 mmol/L [facility] Gluc Whole Bld 121 65 - 199 mg/dL [facility] Comment:Diabetes: >=200 mg/d L plus symptoms. Lactate WB 0.8 0.5 - 2.2 mmol/L [facility] FIO2 Art 21 % [facility] PF Ratio Art 305 [facility] Blood specimen (specimen) 10/30/2020 3:19 PM EST 10/30/2020 3:19 PM EST Gaurav Shoemaker MD POINT OF CARE TEST O RDERABLES Performing Organization Address City/[facility]/ZIP Co de Phone Number [facility] [place] [address] * (ABNORMAL) CK (10/30/2020 1:15 PM EST) Creatine Kinase 333(H) 0 - 200 unit/L [facility] Blood specimen (specimen) 10/30/2020 1:15 PM EST 10/30/2020 1:28 PM EST Narrative Resulting Agency Comment Spec In Lab Gaurav Shoemaker MD CHEMISTRY ORDERABLES Performing Organization Address [facility] Co de Phone Number [facility] [place] [address] * (ABNORMAL) Basic Metabolic Panel (non-fasting) (10/30/2020 1:15 PM EST) Glucose 118 65 - 199 mg/dL [facility] Comment:Diabetes: >=200 mg/d L plus symptoms Blood Urea Nitrogen 17 10 - 20 mg/dL [facility] Creatinine 0.81 0.80 - 1.50 mg/dL [facility] Sodium 133(L) 135 - 145 mmol/L [facility] Potassium 3.7 3.5 - 5.0 mmol/L [facility] Comment: Please note: ??Patients with WBC >100,000 may have falsely elevated Potassium levels. ??For accurate Potassium quantification in these patients send serum separator tube (gold top) for subsequent determinations. ??Contact the Clinical Chemistry Laboratory if there are any questions. Chloride 103 98 - 107 mmol/L [facility] Carbon Dioxide 24 22 - 31 mmol/L [facility] Anion Gap 6 5 - 15 mmol/L [facility] Calcium 7.0(L) 8.5 - 10.5 mg/dL [facility] Est Glomerular Filtration Rate 101 >=60 mL/min/1. 73 m?? [facility] Comment: This patient? [...] In Lab Gaurav Shoemaker MD CHEMISTRY ORDERABLES [facility] [place] [address] * (ABNORMAL) Differential, Automated (10/30/2020 1:05 AM EST) Neutrophil % 74.4 % [facility] Neutrophil Absolute 7.02(H) 1.70 - 6.10 x10(3)/mc L [facility] Lymph % 13.4 % [facility] Lymphocytes Abs 1.3 0.9 - 3.2 x10(3)/mc L [facility] Monocyte % 11.5 % [facility] Monocyte Abs 1.1(H) 0.3 - 0.9 x10(3)/mc L [facility] Eos % 0.2 % [facility] Eosinophils Abs 0.0 0.0 - 0.4 x10(3)/mc L [facility] Basophil % 0.2 % [facility] Baso Absolute 0.0 0.0 - 0.1 x10(3)/mc L [facility] Immature Gran % 0.30 % [facility] Comment: Immature granulocytes(IG's)percentage and absolute count will include metamyelocytes, myelocytes, and promyelocytes. Blood smears from CBCs yielding IG's will be scanned manually for concordance. If this scan disagrees with the automated IG or if promyelocytes are noted, a manual differential will be performed. Immature Gran Absolute 0.03 0.00 - 0.04 x10(3)/mc L [facility] Blood specimen (specimen) 10/30/2020 1:05 AM EST 10/30/2020 1:24 AM EST Narrative Resulting Agency Comment Spec In Lab Alex Oropeza MD HEMATOLOGY ORDERABLE S [facility] [place] [address] * (ABNORMAL) Hemogram (10/30/2020 1:05 AM EST) White Blood Cell 9.4 4.0 - 9.5 x10(3)/mc L [facility] Red Blood Cell 3.38(L) 4.58 - 5.54 x10(6)/mc L [facility] Hemoglobin 10.3(L) 13.7 - 16.5 gm/dL [facility] Hematocrit 30.2(L) 40.5 - 48.5 % [facility] Mean Cell Volume 89.3 82.9 - 93.1 fL [facility] Mean Cell Hemoglobin 30.5 27.5 - 32.1 pg [facility] Mean Cell Hemoglobin Concentration 34.1 32.0 - 35.7 gm/dL [facility] Platelet 159 145 - 357 x10(3)/mc L [facility] RDW Standard Deviation 39.8 36.0 - 45.0 [facility] RDW coefficient of variation 12.2 11.4 - 13.8 % [facility] Mean Platelet Volume 11.6 7.6 - 12.9 fL [facility] NRBC% auto 0.0 % [facility] NRBC Absolute 0.000 0.000 - 0.000 x10(3)/mc L [facility] Blood specimen (specimen) 10/30/2020 1:05 AM EST 10/30/2020 1:24 AM EST Narrative Resulting Agency Comment Spec In Lab Alex Oropeza MD HEMATOLOGY ORDERABLE S [facility] [place] [address] * (ABNORMAL) Basic Metabolic Panel (non-fasting) (10/30/2020 1:05 AM EST) Glucose 108 65 - 199 mg/dL [facility] Comment:Diabetes: >=200 mg/d L plus symptoms Blood Urea Nitrogen 15 10 - 20 mg/dL [facility] Creatinine 0.87 0.80 - 1.50 mg/dL [facility] Sodium 136 135 - 145 mmol/L [facility] Potassium 3.7 3.5 - 5.0 mmol/L [facility] Comment: Please note: ??Patients with WBC >100,000 may have falsely elevated Potassium levels. ??For accurate Potassium quantification in these patients send serum separator tube (gold top) for subsequent determinations. ??Contact the Clinical Chemistry Laboratory if there are any questions. Chloride 105 98 - 107 mmol/L [facility] Carbon Dioxide 24 22 - 31 mmol/L [facility] Anion Gap 7 5 - 15 mmol/L [facility] Calcium 7.5(L) 8.5 - 10.5 mg/dL [facility] Est Glomerular Filtration Rate 99 >=60 mL/min/1. 73 m?? [facility] Comment: This patient? [...] Bolden MD CHEMISTRY ORDERABLES Performing Organization Address [facility] Co de Phone Number [facility] [place] [address] * (ABNORMAL) Phosphorus (10/30/2020 1:05 AM EST) Phosphorus 1.8(L) 2.5 - 4.5 mg/dL [facility] Blood specimen (specimen) 10/30/2020 1:05 AM EST 10/30/2020 1:24 AM EST Narrative Resulting Agency Comment Spec In Lab Radha Bolden MD CHEMISTRY ORDERABLES Performing Organization Address [facility] de Phone Number [facility] [place] [address] * Magnesium (10/30/2020 1:05 AM EST) Magnesium 0.77 0.69 - 1.07 mmol/L [facility] Blood specimen (specimen) 10/30/2020 1:05 AM EST 10/30/2020 1:24 AM EST Narrative Resulting Agency Comment Spec In Lab Radha Bolden MD CHEMISTRY ORDERABLES Performing Organization Address [facility] de Phone Number [facility] [place] [address] * (ABNORMAL) Phosphorus (10/29/2020 12:18 PM EST) Phosphorus 1.9(L) 2.5 - 4.5 mg/dL [facility] Blood specimen (specimen) 10/29/2020 12:18 PM EST 10/29/2020 12:36 PM EST Narrative Resulting Agency Comment Spec In Lab Adrienne Medellin MD CHEMISTRY ORDERABLES Performing Organization Address [facility]/ZIP Co de Phone Number [facility] [place] [address] * (ABNORMAL) Urinalysis Microscopic Exam (10/29/2020 12:03 PM EST) RBC, Urine 3 0 - 3 /HPF [facility] WBC, Urine 6(H) 0 - 3 /HPF [facility] Bacteria, Urine Rare(A) None /HPF [facility] Squamous Epithelial Cells Raw Data, Urine 4 <=4 /HPF [facility] Renal Epithelial Cells, Urine 1(H) <=0 /HPF [facility] Comment: Interpret results with caution, microscopic results are from suboptimal specimen volume Hyaline Casts, Urine 4(H) 0 - 2 /LPF [facility] Urine specimen obtained via indwelling urinary catheter (specimen) 10/29/2020 12:03 PM EST 10/29/2020 12:37 PM EST Narrative Resulting Agency Comment Spec In Lab Neida Omalley MD URINE ORDERABLES Performing Organization Address [facility] Co de Phone Number [facility] [place] [address] * (ABNORMAL) Urinalysis with reflex Culture (10/29/2020 12:03 PM EST) Glucose, Urine Dipstick Negative Negative mg/dL [facility] Protein, Urine Dipstick Trace(A) Negative mg/dL [facility] Bilirubin, Urine Dipstick Negative Negative mg/dL [facility] Comment: Clinical correlation required for positive Urine Bilirubin results as false positive may occur with some drugs and drug related products. If a false positive is suspected a serum total bilirubin should be considered if clinically indicated. Urobilinogen, Urine Dipstick Normal Normal mg/dL [facility] pH, Urn (dipstick) 6.0 5.0 - 8.0 [facility] Blood, Urine Dipstick Trace(A) Negative mg/dL [facility] Ketone, Urine Dipstick 40(A) Negative mg/dL [facility] Nitrite, Urine Dipstick Negative Negative [facility] Leukocytes, Urine Dipstick Negative Negative [facility] Appearance, Urine Dipstick Clear Clear [facility] Specific [place] Urine Automated >=1.030(A) 1.006 - 1.030 [facility] Color, Urine Dipstick Yellow Yellow [facility] Reflex to Culture No [facility] Urine specimen obtained via indwelling urinary catheter (specimen) 10/29/2020 12:03 PM EST 10/29/2020 12:37 PM EST Narrative Resulting Agency Comment Spec In Lab Adrienne Medellin MD URINE ORDERABLES Performing Organization Address [facility] Co de Phone Number [facility] [place] [address] * Blood culture (10/29/2020 6:10 AM EST) Blood Culture No growth at 5 days. [facility] Blood specimen (specimen) STRUCTURE OF RIGHT HAND / Unknown 10/29/2020 6:10 AM EST 10/29/2020 6:38 AM EST Narrative Resulting Agency Comment Spec In Lab Adrienne Medellin MD MICROBIOLOGY - BLOOD ORDERABLES Performing Organization Address City/[facility] Co de Phone Number [facility] [place] [address] * Blood culture (10/29/2020 6:10 AM EST) Blood Culture No growth at 5 days. [facility] Blood specimen (specimen) STRUCTURE OF LEFT UPPER LIMB / Unknown 10/29/2020 6:10 AM EST 10/29/2020 6:39 AM EST Narrative Resulting Agency Comment Spec In Lab Adrienne Medellin MD MICROBIOLOGY - BLOOD ORDERABLES [facility] [place] [address] * XR Chest One View (10/29/2020 6:07 [...] course of the esophagus courses off the [id number] inferiorly over the abdomen. Thank you for letting us participate in the care of this patient. For questions regarding this report, please contact the number below. ? Electronically signed by: Allen García MD, [facility] ([phone]), at 10/29/2020 6:35 AM Narrative 10/29/2020 6:35 [...] expected course of the esophagus coursesoff the [id number] inferiorly over the abdomen. Thank you for letting us participate in the care of this patient. Forquestions regarding this report, please contact the number below. Electronically signed by: Allen García MD, [facility]([phone]), at 10/29/2020 6:35 AM Adrienne Medellin MD IMG DX ORDERABLES * Differential, Automated (10/29/2020 12:50 AM EST) Neutrophil % 79.9 % [facility] Neutrophil Absolute 5.96 1.70 - 6.10 x10(3)/[facility] Lymph % 11.6 % [facility] Lymphocytes Abs 0.9 0.9 - 3.2 x10(3)/[facility] Monocyte % 8.0 % [facility] Monocyte Abs 0.6 0.3 - 0.9 x10(3)/[facility] Eos % 0.0 % [facility] Eosinophils Abs 0.0 0.0 - 0.4 x10(3)/[facility] Basophil % 0.1 % [facility] Baso Absolute 0.0 0.0 - 0.1 x10(3)/[facility] Immature Gran % 0.40 % [facility] Comment: Immature granulocytes(IG's)percentage and absolute count will include metamyelocytes, myelocytes, and promyelocytes. Blood smears from CBCs yielding IG's will be scanned manually for concordance. If this scan disagrees with the automated IG or if promyelocytes are noted, a manual differential will be performed. Immature Gran Absolute 0.03 0.00 - 0.04 x10(3)/[facility] Blood specimen (specimen) 10/29/2020 12:50 AM EST 10/29/2020 1:03 AM EST Narrative Resulting Agency Comment Spec In Lab Alex Oropeza MD HEMATOLOGY ORDERABLE S Performing Organization Address City/[facility]/ZIP Co de Phone Number [facility] [place] [address] * (ABNORMAL) Hemogram (10/29/2020 12:50 AM EST) White Blood Cell 7.5 4.0 - 9.5 x10(3)/mc L [facility] Red Blood Cell 3.64(L) 4.58 - 5.54 x10(6)/mc L [facility] Hemoglobin 11.2(L) 13.7 - 16.5 gm/dL [facility] Hematocrit 32.9(L) 40.5 - 48.5 % [facility] Mean Cell Volume 90.4 82.9 - 93.1 fL [facility] Mean Cell Hemoglobin 30.8 27.5 - 32.1 pg [facility] Mean Cell Hemoglobin Concentration 34.0 32.0 - 35.7 gm/dL [facility] Platelet 146 145 - 357 x10(3)/mc L [facility] RDW Standard Deviation 40.3 36.0 - 45.0 [facility] RDW coefficient of variation 12.2 11.4 - 13.8 % [facility] Mean Platelet Volume 11.4 7.6 - 12.9 fL [facility] NRBC% auto 0.0 % [facility] NRBC Absolute 0.000 0.000 - 0.000 x10(3)/mc L [facility] Blood specimen (specimen) 10/29/2020 12:50 AM EST 10/29/2020 1:03 AM EST Narrative Resulting Agency Comment Spec In Lab Alex Oropeza MD HEMATOLOGY ORDERABLE S Performing Organization Address City/[facility]/ZIP Co de Phone Number [facility] [place] [address] * (ABNORMAL) Basic Metabolic Panel (non-fasting) (10/29/2020 12:50 AM EST) Glucose 96 65 - 199 mg/dL [facility] Comment:Diabetes: >=200 mg/d L plus symptoms Blood Urea Nitrogen 15 10 - 20 mg/dL [facility] Creatinine 0.93 0.80 - 1.50 mg/dL [facility] Sodium 136 135 - 145 mmol/L [facility] Potassium 4.2 3.5 - 5.0 mmol/L [facility] Comment: Please note: ??Patients with WBC >100,000 may have falsely elevated Potassium levels. ??For accurate Potassium quantification in these patients send serum separator tube (gold top) for subsequent determinations. ??Contact the Clinical Chemistry Laboratory if there are any questions. Chloride 105 98 - 107 mmol/L [facility] Carbon Dioxide 25 22 - 31 mmol/L [facility] Anion Gap 6 5 - 15 mmol/L [facility] Calcium 7.8(L) 8.5 - 10.5 mg/dL [facility] Est Glomerular Filtration Rate 93 >=60 mL/min/1. 73 m?? [facility] Comment: This patient? [...] In Lab Radha Bolden MD CHEMISTRY ORDERABLES [facility] [place] [address] * (ABNORMAL) Phosphorus (10/29/2020 12:50 AM EST) [facility] Phosphorus 1.6(L) 2.5 - 4.5 mg/dL [facility] Blood specimen (specimen) 10/29/2020 12:50 AM EST 10/29/2020 1:03 AM EST Narrative Resulting Agency Comment Spec In Lab Radha Bolden MD CHEMISTRY ORDERABLES Performing Organization Address City/[facility]/ZIP Co de Phone Number [facility] [place] [address] * Magnesium (10/29/2020 12:50 AM EST) [facility] Magnesium 0.75 0.69 - 1.07 mmol/L [facility] Blood specimen (specimen) 10/29/2020 12:50 AM EST 10/29/2020 1:03 AM EST Narrative Resulting Agency Comment Spec In Lab Radha Bolden MD CHEMISTRY ORDERABLES Performing Organization Address City/[facility]/ZIP Co de Phone Number [facility] [place] [address] * Differential, Automated (10/28/2020 1:40 AM EST) [facility] Neutrophil % 78.6 % [facility] Neutrophil Absolute 5.94 1.70 - 6.10 x10(3)/[facility] Lymph % 12.6 % [facility] Lymphocytes Abs 1.0 0.9 - 3.2 x10(3)/[facility] Monocyte % 8.5 % [facility] Monocyte Abs 0.6 0.3 - 0.9 x10(3)/[facility] Eos % 0.0 % [facility] Eosinophils Abs 0.0 0.0 - 0.4 x10(3)/[facility] Basophil % 0.0 % [facility] Baso Absolute 0.0 0.0 - 0.1 x10(3)/[facility] Immature Gran % 0.30 % [facility] Comment: Immature granulocytes(IG's)percentage and absolute count will include metamyelocytes, myelocytes, and promyelocytes. Blood smears from CBCs yielding IG's will be scanned manually for concordance. If this scan disagrees with the automated IG or if promyelocytes are noted, a manual differential will be performed. Immature Gran Absolute 0.02 0.00 - 0.04 x10(3)/[facility] Blood specimen (specimen) 10/28/2020 1:40 AM EST 10/28/2020 1:46 AM EST Narrative Resulting Agency Comment Spec In Lab Alex Oropeza MD HEMATOLOGY ORDERABLE S [facility] [place] [address] * (ABNORMAL) Hemogram (10/28/2020 1:40 AM EST) White Blood Cell 7.6 4.0 - 9.5 x10(3)/mc L [facility] Red Blood Cell 3.71(L) 4.58 - 5.54 x10(6)/mc L [facility] Hemoglobin 11.3(L) 13.7 - 16.5 gm/dL [facility] Hematocrit 33.8(L) 40.5 - 48.5 % [facility] Mean Cell Volume 91.1 82.9 - 93.1 fL [facility] Mean Cell Hemoglobin 30.5 27.5 - 32.1 pg [facility] Mean Cell Hemoglobin Concentration 33.4 32.0 - 35.7 gm/dL [facility] Platelet 136(L) 145 - 357 x10(3)/ L [facility] RDW Standard Deviation 41.5 36.0 - 45.0 fL [facility] RDW coefficient of variation 12.5 11.4 - 13.8 % [facility] Mean Platelet Volume 11.3 7.6 - 12.9 fL [facility] NRBC% auto 0.0 % [facility] NRBC Absolute 0.000 0.000 - 0.000 x10(3)/mc L [facility] Blood specimen (specimen) 10/28/2020 1:40 AM EST 10/28/2020 1:46 AM EST Narrative Resulting Agency Comment Spec In Lab Alex Oropeza MD HEMATOLOGY ORDERABLE S Performing Organization Address City/[facility] Co de Phone Number [facility] [place] [address] * Phosphorus (10/28/2020 1:40 AM EST) Phosphorus 3.1 2.5 - 4.5 mg/dL [facility] Blood specimen (specimen) 10/28/2020 1:40 AM EST 10/28/2020 1:46 AM EST Narrative Resulting Agency Comment Spec In Lab Radha Bolden MD CHEMISTRY ORDERABLES Performing Organization Address [facility] Co de Phone Number [facility] [place] [address] * Magnesium (10/28/2020 1:40 AM EST) Magnesium 0.88 0.69 - 1.07 mmol/L [facility] Blood specimen (specimen) 10/28/2020 1:40 AM EST 10/28/2020 1:46 AM EST Narrative Resulting Agency Comment Spec In Lab Radha Bolden MD CHEMISTRY ORDERABLES Performing Organization Address [facility] Co de Phone Number [facility] [place] [address] * (ABNORMAL) Basic Metabolic Panel (non-fasting) (10/28/2020 1:40 AM EST) Glucose 137 65 - 199 mg/dL [facility] Comment:Diabetes: >=200 mg/d L plus symptoms Blood Urea Nitrogen 14 10 - 20 mg/dL [facility] Creatinine 0.90 0.80 - 1.50 mg/dL [facility] Sodium 138 135 - 145 mmol/L [facility] Potassium 4.6 3.5 - 5.0 mmol/L [facility] Comment: Please note: ??Patients with WBC >100,000 may have falsely elevated Potassium levels. ??For accurate Potassium quantification in these patients send serum separator tube (gold top) for subsequent determinations. ??Contact the Clinical Chemistry Laboratory if there are any questions. Chloride 108(H) 98 - 107 mmol/L [facility] Carbon Dioxide 24 22 - 31 mmol/L [facility] Anion Gap 6 5 - 15 mmol/L [facility] Calcium 7.7(L) 8.5 - 10.5 mg/dL [facility] Est Glomerular Filtration Rate 97 >=60 mL/min/1. 73 m?? [facility] Comment: This patient? [...] In Lab Radha Bolden MD CHEMISTRY ORDERABLES [facility] [place] [address] * XR Cervical Spine 2 or 3 [...] ? Electronically signed by: Tim Anthony MD, [facility] ([phone]), at 10/28/2020 3:05 AM Narrative 10/28/2020 3:05 [...] Hepatic Function Panel (10/27/2020 5:25 PM EST) [facility] Protein, Total 5.4(L) 6.1 - 8.0 gm/dL [facility] Albumin 3.5 3.2 - 5.2 gm/dL [facility] Aspartate Aminotransferase 80(H) 0 - 39 unit/L [facility] Alanine Aminotransferase 32 0 - 55 unit/L [facility] Alkaline Phosphatase 60 40 - 130 unit/L [facility] Bilirubin, Total 0.5 0.2 - 1.3 mg/dL [facility] Bilirubin, Direct 0.1 0.0 - 0.3 mg/dL [facility] Blood specimen (specimen) Venous Draw / Unknown 10/27/2020 5:25 PM EST 10/27/2020 6:19 PM EST Narrative Resulting Agency Comment Spec In Lab Neida Omalley MD CHEMISTRY ORDERABLES Performing Organization Address City/[facility] Co de Phone Number [facility] [place] [address] * Potassium (10/27/2020 5:25 PM EST) [facility] Potassium 4.8 3.5 - 5.0 mmol/L [facility] Comment: Please note: [...] Medellin MD CHEMISTRY ORDERABLES Performing Organization Address City/[facility]/ZIP Co de Phone Number [facility] [place] [address] * Magnesium (10/27/2020 5:25 PM EST) Magnesium 0.91 0.69 - 1.07 mmol/L [facility] Blood specimen (specimen) 10/27/2020 5:25 PM EST 10/27/2020 6:15 PM EST Narrative Resulting Agency Comment Spec In Lab Adrienne Medellin MD CHEMISTRY ORDERABLES [facility] [place] [address] * XR Chest One View (10/27/2020 2:29 [...] below. Electronically signed by: Tre Mendez MD, [facility]([phone]), at 10/27/2020 2:43 PM Adrienne Medellin MD IMG DX ORDERABLES [...] signed by: Allen García MD, [facility] ([phone]), at 10/28/2020 7:32 AM Narrative 10/28/2020 7:32 [...] below. Electronically signed by: Allen García MD, [facility]([phone]), at 10/28/2020 7:32 AM Adrienne Medellin MD IMG DX ORDERABLES * (ABNORMAL) Differential, Automated (10/27/2020 1:25 PM EST) Neutrophil % 92.4 % [facility] Neutrophil Absolute 8.31(H) 1.70 - 6.10 x10(3)/mc L [facility] Lymph % 5.3 % [facility] Lymphocytes Abs 0.5(L) 0.9 - 3.2 x10(3)/mc L [facility] Monocyte % 2.0 % [facility] Monocyte Abs 0.2(L) 0.3 - 0.9 x10(3)/mc L [facility] Eos % 0.0 % [facility] Eosinophils Abs 0.0 0.0 - 0.4 x10(3)/mc L [facility] Basophil % 0.1 % [facility] Baso Absolute 0.0 0.0 - 0.1 x10(3)/mc L [facility] Immature Gran % 0.20 % [facility] Comment: Immature granulocytes(IG's)percentage and absolute count will include metamyelocytes, myelocytes, and promyelocytes. Blood smears from CBCs yielding IG's will be scanned manually for concordance. If this scan disagrees with the automated IG or if promyelocytes are noted, a manual differential will be performed. Immature Gran Absolute 0.02 0.00 - 0.04 x10(3)/mc L [facility] Blood specimen (specimen) 10/27/2020 1:25 PM EST 10/27/2020 1:29 PM EST Narrative Resulting Agency Comment Spec In Lab Tyesha Lopez MD HEMATOLOGY ORDERABL ES [facility] [place] [address] * (ABNORMAL) Hemogram (10/27/2020 1:25 PM EST) White Blood Cell 9.0 4.0 - 9.5 x10(3)/ L [facility] Red Blood Cell 3.84(L) 4.58 - 5.54 x10(6)/mc L [facility] Hemoglobin 11.7(L) 13.7 - 16.5 gm/dL [facility] Hematocrit 35.4(L) 40.5 - 48.5 % [facility] Mean Cell Volume 92.2 82.9 - 93.1 fL [facility] Mean Cell Hemoglobin 30.5 27.5 - 32.1 pg [facility] Mean Cell Hemoglobin Concentration 33.1 32.0 - 35.7 gm/dL [facility] Platelet 169 145 - 357 x10(3)/mc L [facility] RDW Standard Deviation 42.6 36.0 - 45.0 fL [facility] RDW coefficient of variation 12.6 11.4 - 13.8 % [facility] Mean Platelet Volume 10.9 7.6 - 12.9 fL [facility] NRBC% auto 0.0 % [facility] NRBC Absolute 0.000 0.000 - 0.000 x10(3)/mc L [facility] Blood specimen (specimen) 10/27/2020 1:25 PM EST 10/27/2020 1:29 PM EST Narrative Resulting Agency Comment Spec In Lab Tyesha Lopez MD HEMATOLOGY ORDERABL ES Performing Organization Address [facility] Co de Phone Number [facility] [place] [address] * Phosphorus (10/27/2020 1:25 PM EST) Phosphorus 3.6 2.5 - 4.5 mg/dL [facility] Blood specimen (specimen) 10/27/2020 1:25 PM EST 10/27/2020 1:29 PM EST Narrative Resulting Agency Comment Spec In Lab Adrienne Medellin MD CHEMISTRY ORDERABLES Performing Organization Address [facility] Co de Phone Number [facility] [place] [address] * (ABNORMAL) Magnesium (10/27/2020 1:25 PM EST) Magnesium 0.61(L) 0.69 - 1.07 mmol/L [facility] Blood specimen (specimen) 10/27/2020 1:25 PM EST 10/27/2020 1:29 PM EST Narrative Resulting Agency Comment Spec In Lab Adrienne Medellin MD CHEMISTRY ORDERABLES Performing Organization Address [facility] Co de Phone Number [facility] [place] [address] * (ABNORMAL) Basic Metabolic Panel (non-fasting) (10/27/2020 1:25 PM EST) Glucose 117 65 - 199 mg/dL [facility] Comment:Diabetes: >=200 mg/d L plus symptoms Blood Urea Nitrogen 13 10 - 20 mg/dL [facility] Creatinine 1.08 0.80 - 1.50 mg/dL [facility] Sodium 137 135 - 145 mmol/L [facility] Potassium 5.3(H) 3.5 - 5.0 mmol/L [facility] Comment: result rechecked-va Please note: ??Patients with WBC >100,000 may have falsely elevated Potassium levels. ??For accurate Potassium quantification in these patients send serum separator tube (gold top) for subsequent determinations. ??Contact the Clinical Chemistry Laboratory if there are any questions. Chloride 108(H) 98 - 107 mmol/L [facility] Carbon Dioxide 21(L) 22 - 31 mmol/L [facility] Anion Gap 8 5 - 15 mmol/L [facility] Calcium 7.6(L) 8.5 - 10.5 mg/dL [facility] Est Glomerular Filtration Rate 78 >=60 mL/min/1. 73 m?? [facility] Comment: This patient? [...] In Lab Adrienne Medellin MD CHEMISTRY ORDERABLES [facility] [place] [address] * XR O-Arm No Rad <1Hr - OR Use (10/27/2020 12:00 PM EST) Anatomical Region Laterality Modality N/A Radio Fluoroscop y Impressions 10/27/2020 12:52 PM EST Dose report for intraoperative imaging. Thank you for letting us participate in the care of this patient. For questions regarding this report, please contact the number below. ? Electronically signed by: Delfina Badillo [facility] ([phone]), at 10/27/2020 12:52 PM Narrative 10/27/2020 12:52 [...] EST) pH, Arterial 7.31(L) 7.35 - 7.45 [facility] PCO2, Arterial 41 35 - 45 mmHg [facility] PO2, Arterial 153(H) 85 - 104 mmHg [facility] Bicarbonate, Arterial 20.4 20.0 - 26.0 mmol/L [facility] Base Excess, Arterial -6.2(L) -3.0 - 3.0 mmol/L [facility] Hgb Blood Gas 13.0(L) 13.7 - 16.5 gm/dL [facility] Oxyhemoglobin, Arterial 97.6(H) 94.0 - 97.0 % [facility] Carboxyhemoglob in, Arterial 0.9 % [facility] Comment: Nonsmokers: 0.5-1.5% COHB Smokers: Variable, but usually less than 10% Toxic: 20-30% COHB Lethal: Greater than 60% COHB Methemoglobin, Arterial 0.3 <=1.5 % [facility] Na Whole Blood 133(L) 135 - 145 mmol/L [facility] K Whole Blood 5.1(H) 3.5 - 5.0 mmol/L [facility] Comment: Please note: Patients with WBC >100,000 may have falsely elevated Potassium levels. Contact the Clinical Chemistry Laboratory if there are any questions. ICa Whole Blood 1.09(L) 1.15 - 1.33 mmol/L [facility] Comment: Note: ??Total bilirubin higher than 20 mg/dL may lead to falsely low ionized calcium. CL Whole Blood 110(H) 98 - 107 mmol/L [facility] Gluc Whole Bld 105 65 - 199 mg/dL [facility] Comment:Diabetes: >=200 mg/d L plus symptoms. Lactate WB 1.4 0.5 - 2.2 mmol/L [facility] FIO2 Art 42 % [facility] PF Ratio Art 364 [facility] Temp Art 35.9 Celsius [facility] Blood specimen (specimen) 10/27/2020 11:29 AM EST 10/27/2020 11:29 AM EST Adrienne Medellin MD POINT OF CARE TEST O RDERABLES [facility] [place] [address] * (ABNORMAL) BLOOD GAS 2 ARTERIAL (10/27/2020 10:27 AM EST) pH, Arterial 7.32(L) 7.35 - 7.45 [facility] PCO2, Arterial 38 35 - 45 mmHg [facility] PO2, Arterial 131(H) 85 - 104 mmHg [facility] Bicarbonate, Arterial 19.8(L) 20.0 - 26.0 mmol/L [facility] Base Excess, Arterial -6.6(L) -3.0 - 3.0 mmol/L [facility] Hgb Blood Gas 13.0(L) 13.7 - 16.5 gm/dL [facility] Oxyhemoglobin, Arterial 97.5(H) 94.0 - 97.0 % [facility] Carboxyhemoglob in, Arterial 0.8 % [facility] Comment: Nonsmokers: 0.5-1.5% COHB Smokers: Variable, but usually less than 10% Toxic: 20-30% COHB Lethal: Greater than 60% COHB Methemoglobin, Arterial 0.3 <=1.5 % [facility] Na Whole Blood 134(L) 135 - 145 mmol/L [facility] K Whole Blood 4.6 3.5 - 5.0 mmol/L [facility] Comment: Please note: Patients with WBC >100,000 may have falsely elevated Potassium levels. Contact the Clinical Chemistry Laboratory if there are any questions. ICa Whole Blood 1.11(L) 1.15 - 1.33 mmol/L [facility] Comment: Note: ??Total bilirubin higher than 20 mg/dL may lead to falsely low ionized calcium. CL Whole Blood 110(H) 98 - 107 mmol/L [facility] Gluc Whole Bld 101 65 - 199 mg/dL [facility] Comment:Diabetes: >=200 mg/d L plus symptoms. Lactate WB 1.5 0.5 - 2.2 mmol/L [facility] FIO2 Art 42 % [facility] PF Ratio Art 312 [facility] Temp Art 35.1 Celsius [facility] Blood specimen (specimen) 10/27/2020 10:27 AM EST 10/27/2020 10:27 AM EST Adrienne Medellin MD POINT OF CARE TEST O RDERABLES [facility] [place] [address] * (ABNORMAL) BLOOD GAS 2 ARTERIAL (10/27/2020 9:28 AM EST) pH, Arterial 7.29(Crit ical) 7.35 - 7.45 [facility] Comment: Noted by technician helper instrument. Critical notified to Dr. Mariana Rojas by technician helper instrument immediately following run time. PCO2, Arterial 40 35 - 45 mmHg [facility] PO2, Arterial 171(H) 85 - 104 mmHg [facility] Bicarbonate, Arterial 19.6(L) 20.0 - 26.0 mmol/L [facility] Base Excess, Arterial -7.5(L) -3.0 - 3.0 mmol/L [facility] Hgb Blood Gas 13.5(L) 13.7 - 16.5 gm/dL [facility] Oxyhemoglobin, Arterial 98.0(H) 94.0 - 97.0 % [facility] Carboxyhemoglob in, Arterial 0.8 % [facility] Comment: Nonsmokers: 0.5-1.5% COHB Smokers: Variable, but usually less than 10% Toxic: 20-30% COHB Lethal: Greater than 60% COHB Methemoglobin, Arterial 0.3 <=1.5 % [facility] Na Whole Blood 135 135 - 145 mmol/L [facility] K Whole Blood 4.3 3.5 - 5.0 mmol/L [facility] Comment: Please note: Patients with WBC >100,000 may have falsely elevated Potassium levels. Contact the Clinical Chemistry Laboratory if there are any questions. ICa Whole Blood 1.15 1.15 - 1.33 mmol/L [facility] Comment: Note: ??Total bilirubin higher than 20 mg/dL may lead to falsely low ionized calcium. CL Whole Blood 108(H) 98 - 107 mmol/L [facility] Gluc Whole Bld 103 65 - 199 mg/dL [facility] Comment:Diabetes: >=200 mg/d L plus symptoms. Lactate WB 2.2 0.5 - 2.2 mmol/L [facility] FIO2 Art 43 % [facility] PF Ratio Art 398 [facility] Temp Art 34.7 Celsius [facility] Blood specimen (specimen) 10/27/2020 9:28 AM EST 10/27/2020 9:28 AM EST Adrienne Medellin MD POINT OF CARE TEST O VISHAL Performing Organization Address [facility] Co de Phone Number [facility] [place] [address] * POCT Glucose (10/27/2020 6:19 AM EST) Glucose, POC 101 65 - 199 mg/dL [facility] Comment: Supplemental ranges: <140 mg/dL before meals <180 mg/dL all other times of the day Blood specimen (specimen) 10/27/2020 6:19 AM EST 10/27/2020 6:19 AM EST Adrienne Medellin MD POINT OF CARE TEST O VISHAL Performing Organization Address City/[facility]/ZIP Co de Phone Number [facility] [place] [address] * MRI Cervical Spine wo Contrast (Generic) [...] signed by: Allen García MD, [facility] ([phone]), at 10/27/2020 7:01 AM Narrative 10/27/2020 7:01 [...] 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 C6-C7 disc [...] below. Electronically signed by: Allen García MD, [facility]([phone]), at 10/27/2020 7:01 AM Ovi Ramirez MD [...] signed by: Allen García MD, [facility] ([phone]), at 10/27/2020 5:17 AM Narrative 10/27/2020 5:17 [...] below. Electronically signed by: Allen García MD, [facility]([phone]), at 10/27/2020 5:17 AM Ovi Ramirez MD [...] signed by: Allen García MD, [facility] ([phone]), at 10/27/2020 5:17 AM Narrative 10/27/2020 5:17 [...] below. Electronically signed by: Allen García MD, [facility]([phone]), at 10/27/2020 5:17 AM Ovi Ramirez MD [...] signed by: Allen García MD, [facility] ([phone]), at 10/27/2020 5:17 AM Narrative 10/27/2020 5:17 [...] below. Electronically signed by: Allen García MD, [facility]([phone]), at 10/27/2020 5:17 AM Ovi Ramirez MD [...] signed by: Allen García MD, [facility] ([phone]), at 10/27/2020 5:17 AM Narrative 10/27/2020 5:17 [...] below. Electronically signed by: Allen García MD, [facility]([phone]), at 10/27/2020 5:17 AM Ovi Ramirez MD [...] signed by: Allen García MD, [facility] ([phone]), at 10/27/2020 5:17 AM Narrative 10/27/2020 5:17 [...] below. Electronically signed by: Allen García MD, [facility]([phone]), at 10/27/2020 5:17 AM Oiv Ramirez MD IMG DX ORDERABLES * XR [...] signed by: Allen García MD, [facility] ([phone]), at 10/27/2020 5:17 AM Narrative 10/27/2020 5:17 [...] below. Electronically signed by: Allen García MD, [facility]([phone]), at 10/27/2020 5:17 AM Ovi Ramirez MD [...] signed by: Allen García MD, [facility] ([phone]), at 10/27/2020 5:17 AM Narrative 10/27/2020 5:17 [...] below. Electronically signed by: Allen García MD, [facility]([phone]), at 10/27/2020 5:17 AM Ovi Ramirez MD [...] signed by: Allen García MD, [facility] ([phone]), at 10/27/2020 5:17 AM Narrative 10/27/2020 5:17 [...] below. Electronically signed by: Allen García MD, [facility]([phone]), at 10/27/2020 5:17 AM Ovi Ramirez MD [...] signed by: Allen García MD, [facility] ([phone]), at 10/27/2020 5:17 AM Narrative 10/27/2020 5:17 [...] below. Electronically signed by: Allen García MD, [facility]([phone]), at 10/27/2020 5:17 AM Ovi Ramirez MD [...] signed by: Allen García MD, [facility] ([phone]), at 10/27/2020 5:17 AM Narrative 10/27/2020 5:17 [...] below. Electronically signed by: Allen García MD, [facility]([phone]), at 10/27/2020 5:17 AM Ovi Ramirez MD [...] signed by: Allen García MD, [facility] ([phone]), at 10/27/2020 5:17 AM Narrative 10/27/2020 5:17 [...] below. Electronically signed by: Allen García MD, [facility]([phone]), at 10/27/2020 5:17 AM Sergio Dhaliwal MD [...] signed by: Allen García MD, [facility] ([phone]), at 10/27/2020 5:17 AM Narrative 10/27/2020 5:17 [...] below. Electronically signed by: Allen García MD, [facility]([phone]), at 10/27/2020 5:17 AM Sergio Dhaliwal MD [...] signed by: Allen García MD, [facility] ([phone]), at 10/27/2020 5:17 AM Narrative 10/27/2020 5:17 [...] below. Electronically signed by: Allen García MD, [facility]([phone]), at 10/27/2020 5:17 AM Sergio Dhaliwal MD IMG DX ORDERABLES * (ABNORMAL) BLOOD GAS 2 ARTERIAL (10/27/2020 12:25 AM EST) pH, Arterial 7.33(L) 7.35 - 7.45 [facility] PCO2, Arterial 39 35 - 45 mmHg [facility] PO2, Arterial 75(L) 85 - 104 mmHg [facility] Bicarbonate, Arterial 19.9(L) 20.0 - 26.0 mmol/L [facility] Base Excess, Arterial -6.0(L) -3.0 - 3.0 mmol/L [facility] Hgb Blood Gas 13.7 13.7 - 16.5 gm/dL [facility] Oxyhemoglobin, Arterial 92.4(L) 94.0 - 97.0 % [facility] Carboxyhemoglob in, Arterial 0.4 % [facility] Comment: Nonsmokers: 0.5-1.5% COHB Smokers: Variable, but usually less than 10% Toxic: 20-30% COHB Lethal: Greater than 60% COHB Methemoglobin, Arterial 0.3 <=1.5 % [facility] Na Whole Blood 135 135 - 145 mmol/L [facility] K Whole Blood 3.9 3.5 - 5.0 mmol/L [facility] Comment: Please note: Patients with WBC >100,000 may have falsely elevated Potassium levels. Contact the Clinical Chemistry Laboratory if there are any questions. ICa Whole Blood 1.19 1.15 - 1.33 mmol/L [facility] Comment: Note: ??Total bilirubin higher than 20 mg/dL may lead to falsely low ionized calcium. CL Whole Blood 104 98 - 107 mmol/L [facility] Gluc Whole Bld 116 65 - 199 mg/dL [facility] Comment:Diabetes: >=200 mg/d L plus symptoms. Lactate WB 2.4(H) 0.5 - 2.2 mmol/L [facility] Blood specimen (specimen) 10/27/2020 12:25 AM EST 10/27/2020 12:25 AM EST Ovi Ramirez MD POINT OF CARE TEST O RDERABLES [facility] [place] [address] * (ABNORMAL) BLOOD GAS 2 VENOUS (10/27/2020 12:14 AM EST) pH, Venous 7.31(L) 7.32 - 7.42 [facility] PCO2, Venous 40(L) 41 - 51 mmHg [facility] PO2, Venous 65(H) 25 - 40 mmHg [facility] Bicarbonate, Venous 19.3 mmol/L [facility] Base Excess, Venous -7.0 mmol/L [facility] Hgb Blood Gas 13.2(L) 13.7 - 16.5 gm/dL [facility] Oxyhemoglobin, Venous 88.7 % [facility] Carboxyhemoglob in, Venous 0.7 % [facility] Comment: Nonsmokers: 0.5-1.5% COHB Smokers: Variable, but usually less than 10% Toxic: 20-30% COHB Lethal: Greater than 60% COHB Methemoglobin, Venous 0.4 <=1.5 % [facility] Na Whole Blood 136 135 - 145 mmol/L [facility] K Whole Blood 3.9 3.5 - 5.0 mmol/L [facility] Comment: Please note: Patients with WBC >100,000 may have falsely elevated Potassium levels. Contact the Clinical Chemistry Laboratory if there are any questions. ICa Whole Blood 1.15 1.15 - 1.33 mmol/L [facility] Comment: Note: ??Total bilirubin higher than 20 mg/dL may lead to falsely low ionized calcium. CL Whole Blood 106 98 - 107 mmol/L [facility] Gluc Whole Bld 109 65 - 199 mg/dL [facility] Comment:Diabetes: >=200 mg/d L plus symptoms Lactate WB 2.5(H) 0.5 - 2.2 mmol/L [facility] Blood Gas Source Venous [facility] Blood specimen (specimen) 10/27/2020 12:14 AM EST 10/27/2020 12:14 AM EST Ovi Ramirez MD POINT OF CARE TEST O RDERABLES [facility] [place] [address] * Urinalysis Microscopic Exam (10/26/2020 11:59 PM EST) RBC, Urine 2 0 - 3 /HPF [facility] WBC, Urine 1 0 - 3 /HPF [facility] Squamous Epithelial Cells Raw Data, Urine 2 <=4 /HPF [facility] Hyaline Casts, Urine 1 0 - 2 /LPF [facility] First stream urine specimen (specimen) 10/26/2020 11:59 PM EST 10/27/2020 12:26 AM EST Narrative Resulting Agency Comment Spec In Lab Adrienne Medellin MD URINE ORDERABLES [facility] [place] [address] * (ABNORMAL) Rapid Drug Screen w/o Confirmation, Urine (10/26/2020 11:59 PM EST) Barbiturates Screen, Urine None Detected None Detected [facility] Comment: The barbiturate [...] Benzodiazepines Screen, Urine None Detected None Detected [facility] Comment: The benzodiazepines [...] Cocaine Screen, Urine None Detected None Detected [facility] Comment: The cocaine [...] Metabolites Screen, Urine None Detected None Detected [facility] Comment: The methadone [...] Opiate Screen, Urine None Detected None Detected [facility] Comment: The opiates [...] Cannabinoid Screen, Urine Presumptive Pos(A) None Detected [facility] Comment: The marijuana metabolites screen detects the THC metabolite (48-vje-2-carboxy-delta 9-THC) at concentrations >20 ng/mL. A ? Presumptive Positive? result indicates that the screening result was positive but has not yet been confirmed by a highly-specific method. As with any screen, occasional false positive results from cross-reacting substances may occur. Not for Medico-Legal Purposes. Oxycodone Screen, Urine None Detected None Detected [facility] Comment: The oxycodone screen detects oxycodone and oxymorphone at concentrations >100 ng/mL. A ? Presumptive Positive? result indicates that the screening result was positive but has not yet been confirmed by a highly-specific method. As with any screen, occasional false positive results from cross-reacting substances may occur. Not for Medico-Legal Purposes. Buprenorphine Screen, Urine None Detected None Detected [facility] Comment: The buprenorphine screen detects buprenorphine at concentrations >5 ng/mL. A ? Presumptive Positive? result indicates that the screening result was positive but has not yet been confirmed by a highly-specific method. As with any screen, occasional false positive results from cross-reacting substances may occur. Not for Medico-Legal Purposes. Fentanyl Screen, Urine None Detected None Detected [facility] Comment: The fentanyl screen detects fentanyl at concentrations >2 ng/mL. A ? Presumptive Positive? result indicates that the screening result was positive but has not yet been confirmed by a highly-specific method. As with any screen, occasional false positive results from cross-reacting substances may occur. Not for Medico-Legal Purposes. Tricyclics Screen, Urine None Detected None Detected [facility] Comment: The tricyclics [...] Purposes. Ethanol Screen, Urine Positive(A) None Detected [facility] Comment:This urine ethanol a ssay detects ethanol at concentrations >/= 100 mg/L. Amphetamines Screen, Urine None Detected None Detected [facility] Comment: The amphetamine screen detects d-amphetamine and d-methamphetamine at concentrations >300 ng/mL. A ? Presumptive Positive? result indicates that the screening result was positive but has not yet been confirmed by a highly-specific method. As with any screen, occasional false positive results from cross-reacting substances may occur. Not for Medico-Legal Purposes. Adulterants Screen, Urine None Detected None Detected [facility] Comment: No adulteration or dilution of this urine sample was detected. All urine samples submitted for urine drugs of abuse analysis are tested for creatinine concentration, pH, and for the presence of oxidants, nitrites, and chromate. Urine specimen (specimen) 10/26/2020 11:59 PM EST 10/27/2020 12:26 AM EST Narrative Resulting Agency Comment Spec In Lab Adrienne Medellin MD CHEMISTRY ORDERABLES [facility] [place] [address] * (ABNORMAL) Urinalysis with reflex Culture (10/26/2020 11:59 PM EST) Glucose, Urine Dipstick Negative Negative mg/dL [facility] Protein, Urine Dipstick Trace(A) Negative mg/dL [facility] Bilirubin, Urine Dipstick Negative Negative mg/dL [facility] Comment: Clinical correlation required for positive Urine Bilirubin results as false positive may occur with some drugs and drug related products. If a false positive is suspected a serum total bilirubin should be considered if clinically indicated. Urobilinogen, Urine Dipstick Normal Normal mg/dL [facility] pH, Urn (dipstick) 5.5 5.0 - 8.0 [facility] Blood, Urine Dipstick Large(A) Negative mg/dL [facility] Ketone, Urine Dipstick Negative Negative mg/dL [facility] Nitrite, Urine Dipstick Negative Negative [facility] Leukocytes, Urine Dipstick Negative Negative [facility] Appearance, Urine Dipstick Clear Clear [facility] Specific [place] Urine Automated >=1.030(A) 1.006 - 1.030 [facility] Color, Urine Dipstick Yellow Yellow [facility] Reflex to Culture No [facility] First stream urine specimen (specimen) 10/26/2020 11:59 PM EST 10/27/2020 12:26 AM EST Narrative Resulting Agency Comment Spec In Lab Luann Hartley MD URINE ORDERABLES [facility] [place] [address] * Rapid Drug Screen, Urine (LALITA Request) (10/26/2020 11:59 PM EST) LALITA Conf Requested No [facility] Comment: Collection date/time has been modified to: 23:59:00. ??Previous collection date/time: 23:19:00. Corrected from No [NA] on 10/27/20 0:26:49 EST by Maria E Moses LALITA Requested See Comment [facility] Comment: Refer to Rapid Drug Screen w/o Confirmation, Urine for results. Collection date/time has been modified to: 23:59:00. ??Previous collection date/time: 23:19:00. Corrected from See Comment [NA] on 10/27/20 0:26:49 EST by Maria E Moses Urine specimen (specimen) 10/26/2020 11:59 PM EST 10/27/2020 12:26 AM EST Narrative Resulting Agency Comment Spec In Lab Luann Hartley MD URINE ORDERABLES [facility] [place] [address] * CT Angiogram Carotids (10/26/2020 11:46 PM [...] signed by: Allen García MD, [facility] ([phone]), at 10/27/2020 12:38 AM Narrative 10/27/2020 12:38 AM EST EXAMINATION: REQUEST FOR 2ND READ CT HEAD AND SPINE, CT ANGIOGRAM CAROTIDS CLINICAL HISTORY: trauma found down; What Modality is the exam? CT Scan; Body Part (please add comments as necessary): Head and C spine; Sending Institution [facility]; Date of exam 20201026; I believe [...] comments as necessary): [facility]; I believe [...] signed by: Allen García MD, [facility] ([phone]), at 10/27/2020 12:38 AM Narrative 10/27/2020 12:38 AM EST EXAMINATION: REQUEST FOR 2ND READ CT HEAD AND SPINE, CT ANGIOGRAM CAROTIDS CLINICAL HISTORY: trauma found down; What Modality is the exam? CT Scan; Body Part (please add comments as necessary): Head and C spine; Sending Institution [facility]; Date of exam 20201026; I believe [...] comments as necessary): Head and C spine; [facility]; Date of exam 20201026; I believe [...] below. Electronically signed by: Allen García MD, [facility]([phone]), at 10/27/2020 12:38 AM Luann Hartley MD [...] signed by: Allen García MD, [facility] ([phone]), at 10/27/2020 2:07 AM Narrative 10/27/2020 2:07 AM EST EXAMINATION: REQUEST FOR 2ND READ CT CHEST ABDOMEN PELVIS INSTITUTION WHERE STUDY PERFORMED: [facility] DATE AND TIME OF STUDY: 10/26/2020 20:52 CLINICAL HISTORY: trauma found down; What Modality is the exam? CT Scan; Body Part (please add comments as necessary): Chest abdomen pelvis; Sending Institution [facility]; Date of exam 20201026; I believe [...] as necessary): Chest abdomen pelvis; Sending Institution [facility]; Date of exam 20201026; I believe [...] Lactate WB 2.7(H) 0.5 - 2.2 mmol/L [facility] Blood specimen (specimen) 10/26/2020 11:31 PM EST 10/26/2020 11:31 PM EST Luann Hartley MD CHEMISTRY ORDERABLES [facility] [place] [address] * ABORH Recheck Status (10/26/2020 11:10 PM EST) ABORH Recheck Order Order Placed [facility] ABORH Type Recheck Not Performed [facility] Blood specimen (specimen) 10/26/2020 11:10 PM EST 10/26/2020 11:28 PM EST Narrative Resulting Agency Comment Spec In Lab Adrienne Medellin MD BLOOD BANK LAB ORDER LORNA Performing Organization Address City/[facility]/ZIP Co de Phone Number [facility] [place] [address] * Gold Tube HOLD (10/26/2020 11:10 PM EST) Gold Hold Sample in lab. [facility] Blood specimen (specimen) Venous Draw / Unknown 10/26/2020 11:10 PM EST 10/26/2020 11:34 PM EST Adrienne Medellin MD CHEMISTRY ORDERABLES Performing Organization Address City/[facility]/ZIP Co de Phone Number [facility] [place] [address] * Antibody screen (10/26/2020 11:10 PM EST) Ab Screen Interp Negative [facility] Expires at [id number] on: 10/29/2020 [facility] Blood specimen (specimen) 10/26/2020 11:10 PM EST 10/26/2020 11:28 PM EST Narrative Resulting Agency Comment Spec In Lab Adrienne Medellin MD BLOOD BANK LAB ORDER LORNA [facility] [place] [address] * ABO/Rh Typing (10/26/2020 11:10 PM EST) ABORH Type AB Pos [facility] Blood specimen (specimen) 10/26/2020 11:10 PM EST 10/26/2020 11:28 PM EST Narrative Resulting Agency Comment Spec In Lab Adrienne Medellin MD BLOOD BANK LAB ORDER LORNA [facility] [place] [address] * (ABNORMAL) Differential, Automated (10/26/2020 11:10 PM EST) Neutrophil % 85.4 % [facility] Neutrophil Absolute 11.41(H) 1.70 - 6.10 x10(3)/mc L [facility] Lymph % 9.3 % [facility] Lymphocytes Abs 1.2 0.9 - 3.2 x10(3)/mc L [facility] Monocyte % 4.3 % [facility] Monocyte Abs 0.6 0.3 - 0.9 x10(3)/mc L [facility] Eos % 0.3 % [facility] Eosinophils Abs 0.0 0.0 - 0.4 x10(3)/mc L [facility] Basophil % 0.2 % [facility] Baso Absolute 0.0 0.0 - 0.1 x10(3)/mc L [facility] Immature Gran % 0.50 % [facility] Comment: Immature granulocytes(IG's)percentage and absolute count will include metamyelocytes, myelocytes, and promyelocytes. Blood smears from CBCs yielding IG's will be scanned manually for concordance. If this scan disagrees with the automated IG or if promyelocytes are noted, a manual differential will be performed. Immature Gran Absolute 0.07(H) 0.00 - 0.04 x10(3)/mc L [facility] Blood specimen (specimen) 10/26/2020 11:10 PM EST 10/26/2020 11:31 PM EST Narrative Resulting Agency Comment Spec In Lab Adrienne Medellin MD HEMATOLOGY ORDERABLE S Performing Organization Address City/State/[facility] Co de Phone Number [facility] [place] [address] * (ABNORMAL) Hemogram (10/26/2020 11:10 PM EST) White Blood Cell 13.4(H) 4.0 - 9.5 x10(3)/mc L [facility] Red Blood Cell 4.08(L) 4.58 - 5.54 x10(6)/mc L [facility] Hemoglobin 12.4(L) 13.7 - 16.5 gm/dL [facility] Hematocrit 36.7(L) 40.5 - 48.5 % [facility] Mean Cell Volume 90.0 82.9 - 93.1 fL [facility] Mean Cell Hemoglobin 30.4 27.5 - 32.1 pg [facility] Mean Cell Hemoglobin Concentration 33.8 32.0 - 35.7 gm/dL [facility] Platelet 188 145 - 357 x10(3)/mc L [facility] RDW Standard Deviation 41.0 36.0 - 45.0 [facility] RDW coefficient of variation 12.4 11.4 - 13.8 % [facility] Mean Platelet Volume 10.9 7.6 - 12.9 fL [facility] NRBC% auto 0.0 % [facility] NRBC Absolute 0.000 0.000 - 0.000 x10(3)/mc L [facility] Blood specimen (specimen) 10/26/2020 11:10 PM EST 10/26/2020 11:31 PM EST Narrative Resulting Agency Comment Spec In Lab Adrienne Medellin MD HEMATOLOGY ORDERABLE S [facility] [place] [address] * (ABNORMAL) Ethanol Level (10/26/2020 11:10 PM EST) Ethanol 1,893(H) <=99 mg/L [facility] Comment: Greater than 800 mg/L (0.08%) should be considered intoxicated. 3400 to 4500 mg/L (0.34 - 0.45%) is considered severe intoxication. Greater than 5500 mg/L (0.55%) is usually fatal. Blood specimen (specimen) 10/26/2020 11:10 PM EST 10/26/2020 11:31 PM EST Narrative Resulting Agency Comment Spec In Lab Luann Hartley MD CHEMISTRY ORDERABLES Performing Organization Address [facility] de Phone Number [facility] [place] [address] * (ABNORMAL) APTT (10/26/2020 11:10 PM EST) Partial Thromboplastin Time 22(L) 25 - 37 sec [facility] Comment: Decreased clotting [...] MD HEMATOLOGY ORDERABLE S Performing Organization Address [facility] Co de Phone Number [facility] [place] [address] * Prothrombin Time (10/26/2020 11:10 PM EST) Prothrombin Time 11.1 9.4 - 12.5 sec [facility] International Normalization Ratio 1.0 [facility] Comment: An INR [...] Lab Luann Hartley MD HEMATOLOGY ORDERABLE S [facility] [place] [address] * (ABNORMAL) Basic Metabolic Panel (non-fasting) (10/26/2020 11:10 PM EST) Glucose 133 65 - 199 mg/dL [facility] Comment:Diabetes: >=200 mg/d L plus symptoms Blood Urea Nitrogen 15 10 - 20 mg/dL [facility] Creatinine 1.43 0.80 - 1.50 mg/dL [facility] Sodium 138 135 - 145 mmol/L [facility] Potassium 4.1 3.5 - 5.0 mmol/L [facility] Comment: Please note: ??Patients with WBC >100,000 may have falsely elevated Potassium levels. ??For accurate Potassium quantification in these patients send serum separator tube (gold top) for subsequent determinations. ??Contact the Clinical Chemistry Laboratory if there are any questions. Chloride 104 98 - 107 mmol/L [facility] Carbon Dioxide 20(L) 22 - 31 mmol/L [facility] Anion Gap 14 5 - 15 mmol/L [facility] Calcium 8.4(L) 8.5 - 10.5 mg/dL [facility] Est Glomerular Filtration Rate 56(L) >=60 mL/min/1. 73 m?? [facility] Comment: This patient? [...] In Lab Luann Hartley MD CHEMISTRY ORDERABLES [facility] [place] [address] * COVID-19 PCR (10/26/2020 10:58 PM EST) SARS-CoV-2 RNA (Rapid) Not Detected Not Detected [facility] Comment: This result [...] using the Simplexa COVID-19 Direct Assay by Parature as authorized by the FDA issued Emergency [...] Department of Pathology and Laboratory Medicine at [facility], certified under the Clinical Laboratory Improvement [...] fact sheets at the following FDA website: https://www.fda.gov/medical-devices/cirnkxjijzi-fjbznxu-7126-heqtf-08-tdptbdddj- use-a xlbxwpjbsysqi-ygwxrqz-ipvpgia/bbyjg-kmwvzjhdpet-nboz SARS-CoV-2 Source IT CONSULTANT Swab [facility] Nasopharyngeal swab (specimen) 10/26/2020 10:58 PM EST 10/26/2020 11:34 PM EST Comment:Symptoms->Surveillan ce Narrative Resulting Agency Comment Spec In Lab Luann Hartley MD MICROBIOLOGY - GENER AL ORDERABLES Performing Organization Address [facility] Co de Phone Number [facility] [place] [address] * Film Library- Storage Only CT Head And Spine (10/26/2020 9:51 PM EST) Narrative [facility] - 10/26/2020 9:51 PM EST This exam is auto-finalizing. It's purpose is for storage only. Rayna Hoover APRN IMG FILM LIBRARY ORD ERABLES Performing Organization Address City/[facility] Co de Phone Number [place], [place] * Film Library- Storage Only CT Chest Abdomen Pelvis (10/26/2020 9:49 PM EST) Narrative [facility] - 10/26/2020 9:49 PM EST This exam is auto-finalizing. It's purpose is for storage only. Rayna Hoover [facility] IMG FILM LIBRARY ORD ERABLES DEENA Sandra MS documented in this encounter Visit Diagnoses Not [...] RN) 0600 (New Bag - Provider: Natalie Baliey RN) PRN Medication Order 11/18/2020 11/19/2020 11/20/2020 [...] documented as of this encounter Care Teams Vp Analytics Relationship Specialty Start Date End Date Rayna Hoover APRN [address] [place] [address] PCP - General Family Medicine 07/01/18 08/21/21 documented as of this encounter
--- OUTSIDE RECORDS SUMMARY | 2024-11-04 00:33 | XMS_ITS | Encounter Summary ---
Author Organization [facility] [place] [address] Care Team Providers Care Director Of Institutional Giving Name Role Phone Rayna Pino APRN Primary Care Provider Encounter Details Date Type Department Care Team (Late st Contact Info) Description 10/26/2020 9:55 PM EST Ancillary Procedure Radiology Library at [facility] [place] [id number] Social History Tobacco Use Types Packs/Day Years [...] And Spine (10/26/2020 9:51 PM EST) Narrative [facility] - 10/26/2020 9:51 PM EST This exam is auto-finalizing. It's purpose is for storage only. Rayna Pino APRN IM FILM LIBRARY ORD ERABLES [place], [place] documented in this encounter Visit Diagnoses Not on filedocumented in this encounter Care Teams Director Of Institutional Giving Relationship Specialty Start Date End Date Rayna Pino APRN [address] [facility] [place] [address] PCP - General Family Medicine 07/01/18 08/21/21 documented as of this encounter
--- OUTSIDE RECORDS SUMMARY | 2024-11-04 00:33 | XMS_ITS | Encounter Summary ---
Author Organization [facility] [place] [address] Care Team Providers Care Defensive Driving Instructor Name Role Phone Rayna Pino APRN Primary Care Provider [phone] Encounter Details Date Type Department Care Team (Late st Contact Info) Description 10/26/2020 9:50 PM EST Ancillary Procedure Radiology Library at [facility] [place] [phone] Social History Tobacco Use Types Packs/Day Years [...] Abdomen Pelvis (10/26/2020 9:49 PM EST) Narrative [facility] - 10/26/2020 9:49 PM EST This exam is auto-finalizing. It's purpose is for storage only. Rayna Pino APRN IM FILM LIBRARY ORD ERABLES [place], [place] documented in this encounter Visit Diagnoses Not on filedocumented in this encounter Care Teams Defensive Driving Instructor Relationship Specialty Start Date End Date Rayna Pino APRN [address] [facility] [place] [address] PCP - General Family Medicine 07/01/18 08/21/21 documented as of this encounter
--- OUTSIDE RECORDS SUMMARY | 2024-11-04 00:33 | XMS_ITS | Encounter Summary ---
Author Organization [facility] [place] [address] Care Team Providers Care Sewage Disposal Engineer Name Role Phone Rayna Pino APRN Primary Care Provider [phone] Encounter Details Date Type Department Care Team (Late st Contact Info) Description 10/26/2020 11:40 PM EST Ancillary Procedure Radiology Library at [facility] [place] [phone] Social History Tobacco Use Types Packs/Day Years [...] ? Electronically signed by: Allen García MD, [facility] ([phone]), at 10/27/2020 12:38 AM Narrative 10/27/2020 12:38 AM EST EXAMINATION: REQUEST FOR 2ND READ CT HEAD AND SPINE, CT ANGIOGRAM CAROTIDS CLINICAL HISTORY: trauma found down; What Modality is the exam? CT Scan; Body Part (please add comments as necessary): Head and C spine; Sending Institution [facility]; Date of exam 20201026; I believe [...] comments as necessary): [facility]; Date of exam 20201026; I believe a [...] below. Electronically signed by: Allen García MD, [facility]([phone]), at 10/27/2020 12:38 AM Josué Andrews MD IMG CT ORDERABLES * [...] ? Electronically signed by: Allen García MD, [facility] ([phone]), at 10/27/2020 12:38 AM Narrative 10/27/2020 12:38 AM EST EXAMINATION: REQUEST FOR 2ND READ CT HEAD AND SPINE, CT ANGIOGRAM CAROTIDS CLINICAL HISTORY: trauma found down; What Modality is the exam? CT Scan; Body Part (please add comments as necessary): Head and C spine; Sending Institution [facility]; Date of exam 20201026; I believe [...] comments as necessary): [facility] C spine; [facility]; Date of exam 20201026; I believe a [...] below. Electronically signed by: Allen García MD, [facility]([phone]), at 10/27/2020 12:38 AM Josué Andrews MD IMG OUTSIDE INTERPRE TATION ORDERABLES documented in this encounter Visit Diagnoses Not on filedocumented in this encounter Additional Health Concerns Infection Onset Date Last Indicated Resolved Time Rule Out C. difficile 11/02/2020 11/04/20202020 3:56 PM EST documented as of this encounter Care Teams Sewage Disposal Engineer Relationship Specialty Start Date End Date Ray[place] [address] PCP - General Family Medicine 07/01/18 08/21/21 documented as of this encounter
--- OUTSIDE RECORDS SUMMARY | 2024-11-04 00:33 | XMS_ITS | Encounter Summary ---
[place] [address] Care Team Providers Care Wood Preparation Supervisor Name Role Phone Danielle Lieberman APRN Primary Care Provider [phone] Reason for Visit * Reason Comments Establish Care Encounter Details Date Type Department Care Team (Late st Contact Info) Description 01/16/2012 11:00 AM EDT Office [place] [address] Jose M Figueroa MD [facility] [place] [address] Cellulitis (Primary Dx) Discharge Disposition: Home Social [...] site documented in this encounter Care Teams Wood Preparation Supervisor Relationship Specialty Start Date End Date Danielle Lieberman APRN PCP - General 09/24/10 12/28/16 documented as of this encounter
--- OUTSIDE RECORDS SUMMARY | 2024-11-04 00:33 | XMS_ITS | Encounter Summary ---
Author Organization [facility] [place] [address] Care Team Providers Care Buildings And Grounds Superintendent Name Role Phone Rayna Pino APRN Primary Care Provider [phone] Encounter Details Date Type Department Care Team (Late st Contact Info) Description 10/26/2020 11:35 PM EST Ancillary Procedure Radiology Library at [facility] [place] [phone] Social History Tobacco Use Types Packs/Day Years [...] CHEST ABDOMEN PELVIS INSTITUTION WHERE STUDY PERFORMED: [facility] DATE AND TIME OF STUDY: 10/26/2020 20:52 CLINICAL HISTORY: trauma found down; What Modality is the exam? CT Scan; Body Part (please add comments as necessary): Chest abdomen pelvis; Sending Institution [facility]; Date of exam 20201026; [...] as necessary): Chest abdomen pelvis; Sending Institution [facility]; Date of exam 20201026; [...] documented as of this encounter Care Teams Buildings And Grounds Superintendent Relationship Specialty Start Date End Date Rayna Pino APRN [address] [place] [address] PCP - General Family Medicine 07/01/18 08/21/21 documented as of this encounter
--- NOTE | 2024-11-04 13:00 | DI.RAD_ITS ---
Exam(s) XR FOOT RT COMPLETE EXAM: XR FOOT RT COMPLETE CLINICAL HISTORY: DISLOCATION RT TOES S93.104S. TECHNIQUE: 2D digital imaging was performed. COMPARISON: CR,XR XR FOOT RT COMPLETE from 07/28/2023 FINDINGS: 3 views There is generalized osteopenia in the foot. Again noted is prior partial resection of the distal odonnell lf of the 5th metatarsal having been resected. There has also been resection of the proximal aspect of the proximal phalanx. There is no evidence of osteomyelitis at these bones nor in the distal phal anx. No other significant osseous findings. No radiopaque foreign bodies. IMPRESSION: Findings as above but appearing stable when compared to 07/28/2023. DATA REPOSITORY: RADIATION DOSE DELIVERED:
== END 2024-11-04 00:29 ==
LOC: DI 00:09
PROVIDERS: PCP Family Medicine; Visit Provider Family Medicine
DX: S93.104D Unspecified dislocation of right toe(s), subsequent encounter (principal); X58.XXXD Exposure to other specified factors, subsequent encounter
CPT/HCPCS: 73630

== ENCOUNTER 2025-01-20 15:17 | Outpatient (REF) | payer MEDICARE, MEDICAID, SELFPAY ==
[2025-01-20 15:01] LABS: Abs Immature Grans 0.02 10^3/uL (0.0-0.06); Absolute Basophil Count 0.03 10^3/uL (0.0-0.2); Absolute Eosinophil Count 0.29 10^3/uL (0.0-0.7); Absolute Lymphocyte Count 1.41 10^3/uL (1.2-3.4); Absolute Monocyte Count 0.55 10^3/uL (0.1-0.8); Absolute Neutrophil Count 5.02 10^3/uL (1.2-6.7); Basophils % 0.4 %; HCT 42.1 % (40.0-50.0); HGB 13.8 g/dL (13.5-17.5); Immature Grans % 0.3 %; Lymphocytes % 19.3 %; MCH 28.5 pg (27.0-33.0); MCHC 32.8 % (32.0-36.0); MCV 87 fL (80-95); MPV 11.8 fL (8.0-11.0); Monocytes % 7.5 %; Neutrophils % 68.5 %; Platelet Count 180 10^3/uL (130-400); RBC 4.85 10^6/uL (4.36-5.78); RDW 15.8 % (11.8-14.1); RDW-SD 49.5 fL; WBC 7.32 10^3/uL (4.4-10.8)
[2025-01-20 15:27] LABS: ALT 14 U/L (16-63); AST 11 U/L (15-37); Albumin 3.4 g/dL (3.4-5.0); Alkaline Phosphatase 68 U/L (46-116); Anion Gap 9.9 mmol/L (3-11); BUN 31 mg/dL (7-18); Bilirubin, Total 0.3 mg/dL (0.2-1.0); CO2 25.1 mmol/L (21.0-32.0); CREATININE 0.9 mg/dL (0.70-1.30); Calcium 9.2 mg/dL (8.5-10.1); Calculated LDL 130 mg/dL (<100); Chloride 107 mmol/L (98-107); Cholesterol 231 mg/dL (<200); Estimated GFR 99.62 (mL/min/1.73m2); Glucose 90 mg/dL (74-106); HDL Cholesterol 36 mg/dL (>or=40); Potassium 4.4 mmol/L (3.5-5.1); Sodium 142 mmol/L (136-145); Total Protein 7.1 g/dL (6.4-8.2); Triglyceride 325 mg/dL (<150)
== END 2025-01-20 15:18 | disposition home or self-care (01) ==
LOC: NCHCN 15:17
PROVIDERS: PCP Family Medicine; Visit Provider Family Medicine
DX: E78.5 Hyperlipidemia, unspecified (principal); R61 Generalized hyperhidrosis
CPT/HCPCS: 80053; 80061; 85025

== ENCOUNTER 2025-04-01 22:49 | Outpatient (REF) | payer MEDICARE, MEDICAID, SELFPAY ==
[2025-04-01 23:33] LABS: Bilirubin Negative (Negative); Blood Large (Negative); Clarity Cloudy (Clear); Glucose Negative (Negative); Ketones Negative (Negative); Leukocyte Esterase Large (Negative); Nitrite Positive (Negative); Specific Gravity 1.025 (1.005-1.025); Urobilinogen 0.2 mg/dL (Up to 0.2)
[2025-04-01 23:35] LABS: WBC >50 HPF (0-5)
[2025-04-01 23:36] LABS: C & S Indicated? Yes
== END 2025-04-01 22:50 | disposition home or self-care (01) ==
LOC: NCHCN 22:49
PROVIDERS: PCP Family Medicine; Visit Provider Nurse Practitioner Family
DX: Z87.440 Personal history of urinary (tract) infections (principal); N39.0 Urinary tract infection, site not specified; R82.89 Other abnormal findings on cytological and histological examination of urine
CPT/HCPCS: 81003; 81015; 87086

== ENCOUNTER 2025-04-28 23:48 | Outpatient (REF) | payer MEDICARE, MEDICAID, SELFPAY ==
[2025-04-28 17:19] LABS: Bilirubin Negative (Negative); Blood Moderate (Negative); Clarity Clear (Clear); Glucose Negative (Negative); Ketones Negative (Negative); Leukocyte Esterase Moderate (Negative); Nitrite Negative (Negative); Urobilinogen 0.2 mg/dL (Up to 0.2)
[2025-04-28 17:33] LABS: Bacteria Negative HPF (Negative); C & S Indicated? C&S Done As Ordered; Crystals Negative HPF (Negative); Epithelial Cells Negative HPF (Negative); Mucus Negative (Negative); Other Cells Rare Transitional (Negative); WBC 20-50 HPF (0-5)
== END 2025-04-28 23:49 | disposition home or self-care (01) ==
LOC: NCHCN 23:48
PROVIDERS: PCP Family Medicine; Visit Provider Family Medicine
DX: N31.9 Neuromuscular dysfunction of bladder, unspecified (principal); Z87.440 Personal history of urinary (tract) infections; R82.89 Other abnormal findings on cytological and histological examination of urine
CPT/HCPCS: 87077; 81003; 81015; 87086; 87186

== ENCOUNTER 2025-05-24 18:56 | Outpatient (REF) | payer MEDICARE, MEDICAID, SELFPAY ==
[2025-05-24 18:24] LABS: Glucose Negative (Negative)
[2025-05-24 18:43] LABS: C & S Indicated? Yes; WBC >50 HPF (0-5)
== END 2025-05-24 18:57 | disposition home or self-care (01) ==
LOC: NCHCN 18:56
PROVIDERS: PCP Family Medicine; Visit Provider Family Medicine
DX: R39.89 Other symptoms and signs involving the genitourinary system (principal)
CPT/HCPCS: 87077; 81003; 81015; 87086; 87186

== ENCOUNTER 2025-07-26 01:43 | Outpatient (CLI) | payer MEDICARE, MEDICAID, SELFPAY ==
--- NOTE | 2025-07-26 13:45 | DI.US_ITS ---
APPROVED REPORT EXAM: Comprehensive 2D, Doppler, and color-flow Echocardiogram Patient Location: Out-Patient Drug Room Operator: Inna Richardson RDCS (AE) Indications: Bacteremia, Staph infection, R/O endocarditis Other Information Study Quality: Fair. Technically limited study due to body habitus, patient is in wheelchair. Conclusion Technically difficult but adequate study Normal left ventricular wall thickness and chamber size. Ejection fraction is 55%. Wall motion is normal Normal right ventricular size and function Both atria are normal in size There is no structural or hemodynamically significant valvular disease identified Wall motion Left Ventricle The left ventricle is normal size. The left ventricular systolic function is normal. The left ventricular ejection fraction is within the normal range. There is normal left ventricular wall thickness. There is normal LV segmental wall motion. There is no ventricular septal defect visualized. LVEF is 55%. Right Ventricle Right ventricle is grossly normal in size. Right ventricular systolic function is grossly normal. Atria The left atrium size is normal. The right atrium size is normal. The interatrial septum is intact with no evidence for an atrial septal defect. Aortic Valve The aortic valve is normal in structure. Aortic valve is trileaflet. There is no aortic valvular stenosis. No aortic regurgitation is present. Mitral Valve The mitral valve is normal in structure. No evidence of mitral valve stenosis. Trace mitral regurgitation. Tricuspid Valve The tricuspid valve is normal in structure. There is no tricuspid valve stenosis. Trace tricuspid regurgitation. Unable to assess PA pressure. Pulmonic Valve The pulmonary valve is normal in structure. There is no pulmonic valvular stenosis. There is no pulmonic valvular regurgitation. Great Vessels The aortic root is normal in size. The ascending aorta is normal in size. Aortic arch is not well visualized. IVC is normal in size and collapses >50% with inspiration. Pericardium There is no pericardial effusion. 2D Dimensions IVSD d PLAX 1.00 cm M: 0.6-1.2 Ao Root d 3.45 cm M: 3.1 - 3.7 LVPW d PLAX 1.03 cm M: 0.6 - 1.2 Ao Asc Diam d 3.19 cm M: 2.6 - 3.4 LVID d PLAX 5.10 cm M: 4.2 - 5.8 LVDs 3.62 cm M: 2.5 - 4.0 LV EF Teichholz 54.9 % FS 28.67 % LV EDV (Teich) 122.1 mL LV ESV (Teich) 55.0 mL Auto EF LV EDV A4C 106.7 mL LV EDV A2C 84.6 mL LV EDV BP 93.1 mL LV ESV A4C 49.3 mL LV ESV A2C 42.4 mL LV ESV BP 44.8 mL LVEF(%) A4C 53.8 % LVEF(%) A2C 49.9 % LVEF(%) BP 51.8 % LV SV A4C 57.4 ml LV SV A2C 42.2 ml LV SV BP 48.3 ml LV CO A4C 4.2 L/min LV CO A2C 3.1 L/min LV CO BP 3.7 L/min HR A4C 73.77 BPM HR A2C 73.32 BPM LV EDV Index (BP) LV Diastology MV E' medial 0.081 (>0.07 m/s) MV E Vmax 0.65 (0.4-1.3 m/s) MV E/E' MED 8.04 (<14) MV A Vmax 0.65 (0.4-1.3 m/s) MV E' lateral 0.116 (>0.1 m/s) E/A Ratio 1.0 MV E/E' LAT 5.62 (<14) MV E' Average 0.098 m/s MV E/E'(average) 6.61 Aortic Valve AoV Vmax 0.98 m/s LVOT Vmax 0.93 m/s AoV Peak Grad 3.9 mmHg LVOT Peak Grad 3.5 mmHg AoV Area (Vmax) 3.01 cm2 LVOT VTI 0.192 m AoV VTI 0.223 m LVOT Mean Grad 2.0 mmHg AoV Mean Db. 0.72 m/s LVOT SV 61.14 mL AoV Mean Grad 2.3 mmHg LVOT Diam s 2.00 cm AoV Area (VTI) 2.74 cm2 AV Regurg Peak Gr. 3.87 mmHg Velocity Ratio 0.95 Mitral Valve MV DT 218 (160-240 msec) MV Vmax TIPS 0.77 m/s MV Mean Grad 1.2 (<2mmHg) MV VTI 0.206 m Pulmonary Valve PV Vmax 0.74 (0.5-1.5 m/s) RVOT Vmax 0.79 m/s PV Peak Grad 2.2 mmHg RVOT Peak Gr. 2.5 mmHg PV Mean Db 0.57 m/s RVOT VTI 0.149 m PV Mean Grad 1.4 mmHg RVOT Mean Gr. 1.3 mmHg Tricuspid Valve RA Pressure 3.00 mmHg
== END 2025-07-26 02:03 ==
LOC: DI 01:43
PROVIDERS: PCP Family Medicine; Visit Provider Family Medicine
DX: R78.81 Bacteremia (principal); B95.61 Methicillin susceptible Staphylococcus aureus infection as the cause of diseases classified elsewhere
CPT/HCPCS: 93306

== ENCOUNTER 2025-09-04 21:08 | Outpatient (REF) | payer MEDICARE, MEDICAID, SELFPAY | END 2025-09-04 21:09 | disposition home or self-care (01) | LOC: NCHCN 21:08 | PROVIDERS: PCP Family Medicine; Visit Provider Family Medicine | DX: N39.0 Urinary tract infection, site not specified (principal) | CPT/HCPCS: 87077; 87086; 87186 ==

== ENCOUNTER 2025-10-26 16:02 | Outpatient (REF) | payer MEDICARE, MEDICAID, SELFPAY ==
[2025-10-26 19:15] LABS: Glucose Negative (Negative)
[2025-10-26 19:22] LABS: WBC 20-50 HPF (0-5)
== END 2025-10-26 16:03 | disposition home or self-care (01) ==
LOC: NCHCN 16:02
PROVIDERS: PCP Family Medicine; Visit Provider Physician Assistant
DX: Z87.440 Personal history of urinary (tract) infections (principal)
CPT/HCPCS: 87077; 81003; 81015; 87086; 87186